=== PATIENT | female | born 1965 | race Caucasian/White ===

== ENCOUNTER → 2017-10-22 08:51 | Outpatient (CLI) | payer MEDICAID, SELFPAY ==
--- NOTE | 2017-10-24 06:41 | PFTCOMP ---
COMPLETE PULMONARY FUNCTION TEST INTERPRETATION Brief HPI: Patient is a 52 year old female, currently under the care of Dr. Sebastian, who presents to [facility] for complete pulmonary function tests secondary to diagnosis of COPD. Respiratory therapist reports good effort and reproducible results. Interpretation: Forced expiration spirometry shows a moderately-severe large airways obstructive ventilatory defect with an FEV1 of 55 % predicted. There is no significant bronchodilator response by ATS criteria. Spirograms are of good quality and plateau slowly, indicating slowly emptying areas of the lungs. The respiratory flow volume loop shows decreased expiratory flow rates at all lung volumes consistent with airway obstruction. Lung volumes by body plethysmography show a normal total lung capacity at 5.01 L, 106 % predicted. All other lung volumes are within normal limits. Lung volume measurements are trending toward air-trapping. Diffusion capacity by carbon monoxide is at the lower limit of normal at 53 % predicted. The airway resistance is normal. No previous pulmonary function tests were available for review. Impression: Irreversible moderately severe large airways obstructive ventilatory defect with a symmetric reduction diffusing capacity consistent with patient's diagnosis of COPD.
--- NOTE | 2017-10-24 06:44 | PFTCOMP_ITS ---
COMPLETE PULMONARY FUNCTION TEST INTERPRETATION Brief HPI: Patient is a 52 year old female, currently under the care of Dr. Sebastian , who presents to [facility] for complete pulmonary function tests secondary to diagnosis of COPD. Respiratory therapist reports good effort and reproducible results. Interpretation: Forced expiration spirometry shows a moderately-severe large airways obstructive ventilatory defect with an FEV1 of 55 % predicted. There is no significant bronchodilator response by ATS criteria. Spirograms are of good quality and plateau slowly, indicating slowly emptying areas of the lungs. The respiratory flow volume loop shows decreased expiratory flow rates at all lung volumes consistent with airway obstruction. Lung volumes by body plethysmography show a normal total lung capacity at 5.01 L , 106 % predicted. All other lung volumes are within normal limits. Lung volume measurements are trending toward air-trapping. Diffusion capacity by carbon monoxide is at the lower limit of normal at 53 % predicted. The airway resistance is normal. No previous pulmonary function tests were available for review. Impression: Irreversible moderately severe large airways obstructive ventilatory defect with a symmetric reduction diffusing capacity consistent with patient's diagnosis of COPD.
== END ==
PROVIDERS: Family Provider Family Medicine; PCP Family Medicine; Visit Provider Internal Medicine Critical Care Medicine
DX: J44.9 Chronic obstructive pulmonary disease, unspecified (principal); R63.4 Abnormal weight loss; F17.200 Nicotine dependence, unspecified, uncomplicated
CPT/HCPCS: 94060; 94726; 94729

== ENCOUNTER 2018-02-04 11:08 | Emergency (ER) | payer MEDICAID, SELFPAY ==
[2018-02-04 11:09] VITALS: BP 152/101; PULSE 92; RESP 20; TEMP 36.8; O2SAT 99; BMI 17.3
--- NOTE | 2018-02-04 11:23 | RAD_ITS ---
STUDY: X-RAY CHEST REASON FOR EXAM: Female, 52 years old. Cough. Sore throat. TECHNIQUE: Single AP portable view of the chest. COMPARISON: Comparison is made with prior study dated October 01, 2017. FINDINGS: EKG electrodes are seen. Hyperinflation. Scattered calcified granulomas. Decreased bronchovascular markings in both lungs suggestive of emphysematous changes. There is no demonstrated pleural abnormality. Normal size heart. Calcification of the mitral valve annulus. Normal mediastinum and augusta. Normal visualized pulmonary arteries. There is atherosclerotic calcification of the aortic arch with tortuosity. Normal visualized thoracic spine. Normal visualized ribs, clavicles, and shoulders. There is no demonstrated abnormality of the visualized soft tissue structures of the upper abdomen. RAD/Chest 1 View (Portable) IMPRESSION: Hyperinflation. No acute abnormality is seen. Electronically Signed: Zaid Justice MD at 12:29 EDT Tel [phone], Service support ,
--- NOTE | 2018-02-04 11:23 | EKG12_ITS ---
Test Reason : SOB Blood Pressure : / mmHG Vent. Rate : 084 BPM Atrial Rate : 084 BPM P-R Int : 182 ms QRS Dur : 070 ms QT Int : 378 ms P-R-T Axes : 081 091 079 degrees QTc Int : 446 ms Normal sinus rhythm Normal ECG Confirmed by CLIFTON MENENDEZ, COCO ([id number]), acquisitions editor QUETA REYNOSO ([id number]) on 02/09/2018 1:36:14 PM Referred By: BRYCE Confirmed By:COCO LAZO MD
[2018-02-04 11:42] VITALS: PULSE 92; RESP 20
[2018-02-04] MEDS: LORazepam 2 MG/ML Syringe 1 MG IV (11:42)
[2018-02-04] MEDS: Ipratropium/Albuterol Sulfate 3 ML AMPUL.NEB INHALATION (11:42)
[2018-02-04] MEDS: 0.9% Normal Saline 1,000 ML 150 ML IV (11:42)
[2018-02-04] MEDS: Aspirin 325 MG Tablet PO (11:42)
[2018-02-04 11:46] LABS: Absolute Lymphocyte Count 2.77 X10^3/ul (0.83-4.51); Absolute Neutrophil Count 4.9 X10^3/uL (2.0-7.7); Basophil# 0.06 X10^3/uL; Basophil% 0.7 % (0-1); Eosinophil# 0.28 X10^3/uL; Eosinophils% 3.1 % (0-5); Hematocrit 37.4 % (37-47); Hemoglobin 11.4 g/dl (12.0-15.0); Lymphocyte # 2.77 X10^3/ul (4.0); Lymphocyte % 30.5 % (19-41); Mean Corp Hgb Conc 30.5 g/gl (32-36); Mean Corpuscular Hgb 21.2 pg (27.0-32.0); Mean Corpuscular Volume 69.4 fL (81-99); Mean Platelet Vol. 9.1 fl (6.2-12.0); Monocyte# 1.06 X10^3/uL; Monocyte% 11.7 % (0-10); Neutrophil # 4.87 X10^3/uL (2.7-7.7); Neutrophil % 53.7 % (47-70); Platelet Count 364 K/mm3 (150-450); RBC Distribution Width CV 20.1 % (11.6-14.6); RBC Distribution Width SD 50.7 fl (35.1-43.9); Red Blood Count 5.39 M/mm3 (4.2-5.4); White Blood Count 9.1 K/mm3 (4.4-11.0)
[2018-02-04 11:49] LABS: Differential Indicated SCAN CRITERIA MET; POSITIVE COUNT NO; POSITIVE DIFFERENTIAL NO; POSITIVE MORPHOLOGY YES
[2018-02-04 11:59] LABS: Anion Gap 10 (5-15); BUN 4 mg/dL (7-18); Calcium,Total 9.5 mg/dL (8.5-10.1); Chloride 96 mmol/L (98-107); EST Glomerular Filtration Rate 137 mL/min (>60); Est Glom Filt Rate - Afr Amer 165 mL/min (>60); Estimated Creatinine Clearance 89.95 ml/min; Glucose 86 mg/dL (74-106); Potassium 4.2 mmol/L (3.5-5.1); Sodium Level 133 mmol/L (136-145)
[2018-02-04 12:04] LABS: D-Dimer Quantitative (DVT/PE) 0.73 FEU/ug/m (0.27-0.49)
--- NOTE | 2018-02-04 12:05 | CT_ITS ---
STUDY: CTA CHEST REASON FOR EXAM: Female, 52 years old. Chest pain. Dyspnea. RADIATION DOSAGE (If Supplied By Facility): CTDIvol = ( 7.28 ) mGy, DLP = ( 151.94 ) mGycm TECHNIQUE: The examination was performed with the intravenous administration of 75 ml of Isovue 370 contrast material. Post-processing of the angiographic images was performed, with multiplanar reformation and 3D reconstruction. Individualized dose optimization techniques were used for this CT. COMPARISON: Comparison is made with prior chest from the left on the earlier today. FINDINGS: Normal enhancement of the main pulmonary artery and right and left pulmonary arteries. Normal enhancement of the bilateral peripheral pulmonary arteries. There is no demonstrated pulmonary embolism. There is atherosclerotic calcification of the aortic arch with tortuosity. There is no demonstrated aortic dissection. Normal heart and pericardium. Normal mediastinum. Normal hilar regions. Normal visualized trachea and bronchi. Hyperinflation. Emphysematous changes in both lungs more prominent in the upper lobes. Normal pleura. Normal chest wall structures. There are degenerative changes of thoracic spine. There is fatty infiltration of the liver. CT/CTA Chest W/WO Contrast IMPRESSION: Hyperinflation. Emphysematous changes. There is no evidence of pulmonary embolism. Electronically Signed: Zaid Justice MD at 13:01 EDT Tel [phone], Service support ,
[2018-02-04 12:07] LABS: Lactic Acid 1.3 mmol/L (0.4-2.0)
--- NOTE | 2018-02-04 12:52 | ED.RN ---
Pt O2 Sat 63% Upon entering room patient sleeping. awakended easily and sat measured at 100% RA. Informed pt how to use bed for repositioning. She verbalized understanding
[2018-02-04 13:25] VITALS: BP 154/88; PULSE 75; RESP 21; O2SAT 98
--- NOTE | 2018-02-04 14:17 | ED.VISSUMM ---
- ER Visit Summary Date of Service: 02/04/18 Chief Complaint: [Not feeling well ] History of Present Illness: The patient is a 52 F [presents the emergency department with complaint of not feeling well for the last 2 weeks. Patient states that she has had some intermittent nausea, vomiting, and diarrhea. Patient states she has been short of breath over last couple days. Patient coughing up some thick phlegm at times. She denies any fever. Last night patient had some sweats and is not sure if she had a fever. Patient describes an achy pressure/discomfort in her chest. Patient tells me she has been losing weight and has not had much of an appetite.] Physical Examination: [HEENT-PERRLA, EOMI. Cranial nerves II through XII grossly intact. TMs clear. Mucous membranes moist. No adenopathy. Cardiovascular-regular rate and rhythm without murmur or ectopy Lungs-mildly diminished throughout. Patient has some faint expiratory wheezes bilaterally. No accessory muscle use or retractions. EKG obtained on arrival shows sinus rhythm with rate of 84 bpm with no acute ST segment changes. CBC with differential was Abdomen-normoactive bowel sounds, soft, nontender, no rebound or rigidity, no peritoneal signs. Extremities-intact ?4, normal range of motion, normal pulses, atraumatic] Test Results: [Significant for a white blood cell count of 9.1, hemoglobin 11, hematocrit 37, platelets 364. Chemistries unremarkable. Troponin was less than 0.015. Lactate was normal at 1.3. D-dimer was 0.73. Chest x-ray showed hyperinflation otherwise nothing acute. CT of the chest showed no evidence of PE or dissection.] Emergency Department Course and Treatment: [Patient was given a DuoNeb aerosol as well as a milligram of Ativan as she is complaining of feeling anxious. Patient started on doxycycline and prednisone.] Patient felt much improved after treatment and no longer complains of any chest discomfort. I do not feel her chest pain is cardiac as it is very atypical and suspect likely related to her COPD. Treatment Plan: [Prednisone, doxycycline will be started and patient advised to follow-up with her primary care physician within next 3-5 days.] Disposition: [Discharged to home in stable condition. Patient advised to return if increasing shortness of breath or condition should worsen in any way.] Impression: [COPD exacerbation] This note was generated with Dragon dictation software. It may contain incorrect words, spelling, and punctuation that were not noted in review of the chart prior to signing ED Disposition - Plan for ED Patient: Chief Complaint: General Illness Referrals: Bernard Galan III, MD [Primary Care Provider] -
--- NOTE | 2018-02-04 14:22 | ED.DEP ---
ED Disposition - Plan for ED Patient: Chief Complaint: General Illness Instructions: ED COPD Flare Prescriptions: Doxycycline Monohydrate 100 mg PO BID #20 cap Prednisone [Deltasone] 20 mg PO BID #10 tab Referrals: Bernard Galan III, MD [Primary Care Provider] - 3-5 Days
[2018-02-04] MEDS: predniSONE 20 MG Tablet 40 MG PO (14:36)
[2018-02-04] MEDS: Doxycycline 100 MG CAPSULE PO (14:36)
[2018-02-04 14:45] VITALS: BP 138/85; PULSE 74; RESP 19; O2SAT 95
--- NOTE | 2018-02-04 14:46 | ED.RN ---
REVIEWED D/C INSTRUCTIONS, FOLLOW UP CARE, PRESCRIPTIONS, AND S/S THAT WOULD WARRANT A RETURN TO THE ED WITH PT. PT VERBALIZED AN UNDERSTANDING AND DENIES FURTHER QUESTIONS FOR THIS RN. PT SKIN P/W/D, RESP EVEN AND UNLABORED, PT A&O X 3, NO DISTRESS NOTED. PT AMBULATED OUT OF ED, GAIT STEADY.
== END 2018-02-04 14:47 | disposition home or self-care (01) ==
PROVIDERS: Emergency Provider Emergency Medicine; Family Provider Family Medicine; PCP Family Medicine
DX: J44.1 Chronic obstructive pulmonary disease with (acute) exacerbation (principal); Z72.0 Tobacco use
CPT/HCPCS: 36415; 71045; 71275; 80048; 83605; 84484; 85025; 85379; 87040; 87804; 93005; 94640; 99285; J7030; Q9967; A4216

== ENCOUNTER 2018-02-27 21:58 | Inpatient (IN) | payer MEDICAID, SELFPAY ==
[2018-02-27 22:00] VITALS: BP 127/106; PULSE 131; RESP 24; TEMP 36.5; O2SAT 87; BMI 16.9
--- NOTE | 2018-02-27 22:36 | EKG12_ITS ---
Test Reason : SOB Blood Pressure : / mmHG Vent. Rate : 101 BPM Atrial Rate : 101 BPM P-R Int : 170 ms QRS Dur : 070 ms QT Int : 336 ms P-R-T Axes : 067 088 070 degrees QTc Int : 435 ms Sinus tachycardia Low voltage QRS (limb leads) Confirmed by OUSMANE MENENDEZ, GRUPO ([id number]), magazine editor QUETA REYNOSO ([id number]) on 03/10/2018 6:47:58 PM Referred By: ESPINOZA Confirmed By:GRUPO ROMEO MD
[2018-02-27 22:49] VITALS: PULSE 118; RESP 20
[2018-02-27] MEDS: Albuterol 2.5 MG/3 ML VIAL.NEB. INHALATION ×2 (22:49→23:09)
[2018-02-27] MEDS: Ipratropium/Albuterol Sulfate 3 ML AMPUL.NEB INHALATION (22:49)
--- NOTE | 2018-02-27 22:55 | RAD_ITS ---
STUDY: X-RAY CHEST REASON FOR EXAM: Female, 52 years old. Shortness of breath. TECHNIQUE: Single AP portable view of the chest. COMPARISON: 02/04/2018. FINDINGS: There is hyperinflation of the lungs consistent with chronic obstructive lung disease (COPD). There is no demonstrated pleural abnormality. Normal size heart. Normal mediastinum and augusta. Normal visualized pulmonary arteries. There is mild atherosclerotic calcification of the aortic arch with tortuosity. Normal visualized thoracic spine. Normal visualized ribs, clavicles, and shoulders. There is no demonstrated abnormality of the visualized soft tissue structures of the upper abdomen. RAD/Chest 1 View (Portable) IMPRESSION: COPD changes. No focal infiltrate is seen. Electronically Signed: Jason Rubio MD at 0:59 EDT Tel , Service support ,
[2018-02-27 23:10] VITALS: PULSE 117; RESP 20
[2018-02-27] MEDS: MethylPREDNISolone 125 MG/2 ML Vial IV (23:12)
[2018-02-27] MEDS: Morphine 2 MG/ML Syringe IV (23:12)
[2018-02-27 23:18] LABS: Absolute Lymphocyte Count 1.43 X10^3/ul (0.83-4.51); Absolute Neutrophil Count 14.1 X10^3/uL (2.0-7.7); Basophil# 0.07 X10^3/uL; Basophil% 0.4 % (0-1); Differential Indicated SCAN CRITERIA MET; Eosinophil# 0.09 X10^3/uL; Eosinophils% 0.5 % (0-5); Hematocrit 35.4 % (37-47); Hemoglobin 11.3 g/dl (12.0-15.0); Lymphocyte # 1.43 X10^3/ul (4.0); Lymphocyte % 8.1 % (19-41); Mean Corp Hgb Conc 31.9 g/gl (32-36); Mean Corpuscular Hgb 22.7 pg (27.0-32.0); Mean Corpuscular Volume 71.2 fL (81-99); Mean Platelet Vol. 10.3 fl (6.2-12.0); Monocyte# 1.92 X10^3/uL; Monocyte% 10.8 % (0-10); Neutrophil # 14.13 X10^3/uL (2.7-7.7); Neutrophil % 79.6 % (47-70); POSITIVE COUNT NO; POSITIVE DIFFERENTIAL YES; POSITIVE MORPHOLOGY YES; Platelet Count 307 K/mm3 (150-450); RBC Distribution Width SD 53.6 fl (35.1-43.9); Red Blood Count 4.97 M/mm3 (4.2-5.4); White Blood Count 17.7 K/mm3 (4.4-11.0)
--- NOTE | 2018-02-27 23:31 | ED.VISSUMM ---
- ER Visit Summary Date of Service: 02/27/18 Chief Complaint: [] Shortness of breath History of Present Illness: The patient is a 52 F [] complaining of shortness of breath getting earlier today. Patient has a long-standing history of COPD with over [id number]-[id number] history. Prescription. Reports cough productive of yellow sputum. Denies fevers. Reports he was recently admitted for COPD exacerbation. Denies chest pain. No other complaints. Physical Examination: [] Afebrile. Tachycardic. Reported 87% pulse ox on room air. 52-year-old female appears older than stated age in no acute distress. Cardia vascular exam is tachycardic with regular rhythm. Lungs are diminished globally with no obvious wheezing. Abdomen is soft and nontender. There is no lower extremity edema. Test Results: [] Chest x-ray: COPD without obvious infiltrate. EKG reveals normal sinus rhythm with a rate of 101. No ischemia or ectopic changes. Unchanged from previous EKG. Labs: Data white blood cell count 17.7. Sodium 128. Troponin indeterminate 0.066. Emergency Department Course and Treatment: [] Patient received intravenous site Medrol, albuterol and Atrovent aerosols. Patient received 2 mg intravenous of morphine for analgesia. On serial exam she had slight improvement however when she ambulated her pulse ox dropped down to the mid 80s. She still is breathing in the mid 20s and likely needs admission and further aerosol treatment. Case was discussed with hospitalist to admit for observation. Treatment Plan: [] Admit for COPD exacerbation. Disposition: [] Admit, stable Impression: [] COPD exacerbation Hypoxia This note was generated with [employer] dictation software. It may contain incorrect words, spelling, and punctuation that were not noted in review of the chart prior to signing ED Disposition - Plan for ED Patient: Chief Complaint: General Illness Referrals: Bernard Galan III, MD [Primary Care Provider] -
[2018-02-27 23:36] LABS: Anion Gap 11 (5-15); BUN 9 mg/dL (7-18); BUN/Creat Ratio 11.5 RATIO (10-20); Calcium,Total 9.2 mg/dL (8.5-10.1); Chloride 92 mmol/L (98-107); Creatinine, Serum 0.79 mg/dL (0.55-1.02); EST Glomerular Filtration Rate 81 mL/min (>60); Est Glom Filt Rate - Afr Amer 98 mL/min (>60); Estimated Creatinine Clearance 55.65 ml/min; Glucose 185 mg/dL (74-106); Potassium 4.1 mmol/L (3.5-5.1); Sodium Level 128 mmol/L (136-145)
--- NOTE | 2018-02-27 23:37 | ED.DCSUM_ITS ---
- ER Visit Summary Date of Service: 02/27/18 Chief Complaint: [] Shortness of breath History of Present Illness: The patient is a 52 F [] complaining of shortness of breath getting earlier today. Patient has a long-standing history of COPD with over 42-[id number]-[id number] history. Prescription. Reports cough productive of yellow sputum. Denies fevers. Reports he was recently admitted for COPD exacerbation. Denies chest pain. No other complaints. Physical Examination: [] Afebrile. Tachycardic. Reported 87% pulse ox on room air. 52-year-old female appears older than stated age in no acute distress. Cardia vascular exam is tachycardic with regular rhythm. Lungs are diminished globally with no obvious wheezing. Abdomen is soft and nontender. There is no lower extremity edema. Test Results: [] Chest x-ray: COPD without obvious infiltrate. EKG reveals normal sinus rhythm with a rate of 101. No ischemia or ectopic changes. Unchanged from previous EKG. Labs: Data white blood cell count 17.7. Sodium 128. Troponin indeterminate 0.066. Emergency Department Course and Treatment: [] Patient received intravenous site Medrol, albuterol and Atrovent aerosols. Patient received 2 mg intravenous of morphine for analgesia. On serial exam she had slight improvement however when she ambulated her pulse ox dropped down to the mid 80s. She still is breathing in the mid 20s and likely needs admission and further aerosol treatment. Case was discussed with hospitalist to admit for observation. Treatment Plan: [] Admit for COPD exacerbation. Disposition: [] Admit, stable Impression: [] COPD exacerbation Hypoxia This note was generated with [employer] dictation software. It may contain incorrect words, spelling, and punctuation that were not noted in review of the chart prior to signing ED Disposition - Plan for ED Patient: Chief Complaint: General Illness Referrals: Bernard Galan III, MD [Primary Care Provider] -
[2018-02-27 23:43] LABS: Anisocytosis 2+; Differential Comment SCANNED; Hypochromasia RARE
[2018-02-28] VITALS (19 sets, daily range): BP systolic 109–133; BP diastolic 61–117; PULSE 83–140; RESP 14–20; TEMP 36.4–37; O2SAT 92–96; BMI 16.9
--- NOTE | 2018-02-28 01:52 | NURSING ---
WHEN PT GOT BACK FROM THE RESTROOM SHE WAS SHORT OF BREATH AND PULSE OX DROPPED INTO THE 80'S. WITHOUT O2 AND GETTING BACK FROM THE RESTROOM HER PULSE OX WAS 83% WITH NO OXYGEN, ONCE 2 LITERS OF O2 WAS APPLIED PT WENT BACK UP TO 90%.
--- NOTE | 2018-02-28 02:09 | DT_ITS ---
This patient was seen during an EMR downtime March 01, 2018 - March 08, 2018. This patient may have a combination of paper and electronic documentation or all paper documentation. All documentation is viewable within the e-chart portion of [facility] for each patient visit.
--- NOTE | 2018-02-28 02:23 | PCM.HP.STD ---
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 (5) Alcoholic hepatitis Status: Chronic (6) HTN (hypertension) Status: Chronic (7) Anemia Status: Chronic (8) COPD (chronic obstructive pulmonary disease) Status: Chronic (9) Alcohol abuse Status: Chronic (10) History of pancreatitis Status: Chronic (11) Tobacco use disorder Status: Chronic (12) GERD (gastroesophageal reflux disease) Status: Chronic (13) Chronic obstructive lung disease Status: Chronic (14) Benign hypertension Status: Chronic History of Present Illness Date of Admission: 02/28/18 Chief Complaint: COPD exacerbation The patient is a 52 year old female w/ h/o EtOH abuse, COPD, HTN and tobacco abuse admitted for COPD exacerbation. She has a h/o 30 pack year and continues to smoke. She has worsening productive cough x 2-3 days. Nothing appeared to make the cough better or worse. Coughing is associated with SOB. SOB is constant and severe. She came to the ED for further workup. Past Medical History Past Medical History (Chronic Problems): Chronic Problems (Last Updated 11/19/17 @ 13:51 by Kassandra Angeles) Chronic pancreatitis (Chronic) HPV (human papilloma virus) infection (Chronic) Alcoholic hepatitis (Chronic) HTN (hypertension) (Chronic) Anemia (Chronic) COPD (chronic obstructive pulmonary disease) (Chronic) Unintentional weight loss (Chronic) Tobacco abuse (Chronic) Alcohol abuse (Chronic) History of pancreatitis (Chronic) Tobacco use disorder (Chronic) GERD (gastroesophageal reflux disease) (Chronic) Chronic obstructive lung disease (Chronic) Benign hypertension (Chronic) Medical History: Medical History (Last Updated 11/19/17 @ 13:51 by Kassandra Angeles) Chronic pancreatitis (Chronic) K86.1 HPV (human papilloma virus) infection (Chronic) B97.7 Alcoholic hepatitis (Chronic) K70.10 HTN (hypertension) (Chronic) I10 Anemia (Chronic) D64.9 COPD (chronic obstructive pulmonary disease) (Chronic) J44.9 Unintentional weight loss (Chronic) R63.4 Tobacco abuse (Chronic) Z72.0 Alcohol abuse (Chronic) F10.10 History of pancreatitis (Chronic) Z87.19 Tobacco use disorder (Chronic) F17.200 GERD (gastroesophageal reflux disease) (Chronic) K21.9 Chronic obstructive lung disease (Chronic) J44.9 Benign hypertension (Chronic) I10 Allergies Penicillins Allergy (Verified 02/27/18 22:02) Hives Home Medications: Ambulatory Orders Medication Instructions Recorded Albuterol Inhaler [Ventolin Hfa] 1 - 2 puff INHALATION Q4H PRN PRN 07/28/13 Cholecalciferol (Vitamin D3) 2,000 unit PO DAILY 02/23/14 [Vitamin D3] Lisinopril [Zestril] 20 mg PO DAILY 10/29/15 Omeprazole [Prilosec] 20 mg PO DAILY 12/17/15 Vibrin 40 mg PO DAILY 12/17/15 Lorazepam [Ativan] 0.5 mg PO TID PRN 05/12/16 Ibuprofen [Motrin] 400 mg PO Q6H PRN PRN 07/27/17 Trazodone HCl 50 mg PO QHS 07/27/17 Amlodipine [Norvasc] 5 mg PO DAILY 02/04/18 Albuterol Aerosols [Ventolin 2.5 mg INHALATION Q6H PRN PRN 02/27/18 Aerosols] Ferrous Sulfate 325 mg PO DAILY@0800 02/27/18 Loperamide [Imodium] 2 mg PO Q6H PRN PRN 02/27/18 Ondansetron [Zofran Odt] 4 mg PO DAILY 02/27/18 Surgical History: Surgical History (Last Updated 11/19/17 @ 13:51 by Kassandra Angeles) History of colonoscopy (Resolved) Z98.890 History of appendectomy (Resolved) Z98.890, Z90.49 Surgical History: - - 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 Denies: Shortness of breath at rest Gastrointestinal: Denies: Abdominal Pain, Nausea, Vomiting Genitourinary: Denies: Dysuria Musculoskeletal: Denies: Joint Pain, Joint Tenderness Skin: Denies: Rash, Wounds Neurological: Denies: Numbness, Tingling, Focal weakness Psychiatric: Denies: Anxiety, Depression, Homicidal Ideations, Suicidal Ideations Hematologic/ Lymphatic: Denies: Easy Bruising, Easy Bleeding VTE Information - Inpt Only VTE Present on Admission: No VTE Mechan Device Prophylaxis: SCD's VTE Pharm Prophylaxis ordered?: Yes Patient Problems: Active and Suspected Problems (Last Updated 11/19/17 @ 13:51 by Kassandra Angeles) COPD exacerbation (Acute) - Physical Exam General: Alert, Oriented x3, Cooperative HEENT: Atraumatic, PERRLA, EOMI, Normocephalic Neck: Supple, No JVD, Negative Carotid Bruits Lungs: Diminished, Short of Breath, Wheezes Cardiovascular: Regular rate, No murmurs Abdomen: Bowel Sounds Present, Soft, Non Tender Extremities: No edema, Capillary Refill Less than 3 Seconds Skin: No rashes, No breakdown Musculoskeletal: No Tenderness to Palpation of Joints or Extremities Neurological: Cranial nerves II-XII grossly intact Psych/Mental Status: Normal Affect, Appropriate Vital Signs Temp Pulse Resp BP Pulse Ox 97.7 F L 119 H 19 H 133/117 H 92 02/27/18 22:00 02/28/18 00:25 02/28/18 00:25 02/28/18 00:25 02/28/18 00:25 Oxygen Flow Rate (L/min) 2 Oxygen Delivery Method Nasal Cannula Weight: 43.3 kg Body Mass Index (BMI) 16.9 Laboratory Tests Past 24 Hrs 02/27/18 02/27/18 23:00 23:00 WBC 17.7 H RBC 4.97 Hgb 11.3 L Hct 35.4 L MCV 71.2 L MCH 22.7 L MCHC 31.9 L RDW 22.0 H RDW Differential 53.6 H Plt Count 307 MPV 10.3 Immature Gran % (Auto) 0.600 Neut % (Auto) 79.6 H Lymph % (Auto) 8.1 L Placer % (Auto) 10.8 H Eos % (Auto) 0.5 Baso % (Auto) 0.4 Absolute Neuts (auto) 14.1 H Absolute Lymphs (auto) 1.43 Total Counted Not Reportable Differential Comment SCANNED Diff Path Review May foll Hypochromasia RARE Anisocytosis 2+ Sodium 128 L Potassium 4.1 Chloride 92 L Carbon Dioxide 25.0 Anion Gap 11 BUN 9 Creatinine 0.79 Estim Creat Clear Calc 55.65 Est GFR (MDRD) Af Amer 98 Est GFR (MDRD) Non-Af 81 BUN/Creatinine Ratio 11.5 Glucose 185 H Calcium 9.2 Troponin I 0.066 H Assessment/Plan All Active Problems (Last Updated 11/19/17 @ 13:51 by Kassandra Angeles) COPD exacerbation (Acute) History of colonoscopy (Resolved) History of appendectomy (Resolved) 52 year old female w/ h/o EtOH abuse, COPD, HTN and tobacco abuse admitted for COPD exacerbation. 1) COPD exacerbation: Probably secondary to tobacco abuse. Will start bronchodilators, steroid and azithromycin and ceftriaxone. C/w oxygen. Cultures pending. 2) Hyponatremia: Probably secondary to EtOH and poor hydration. IVF hydration. Monitor. 3) Acute hypoxic respiratory failure: C/w oxygen. Monitor. 4) HTN: C/w meds. Monitor.
[2018-02-28] MEDS: 0.9% NaCl Peripheral Flush Adult/Peds IV ×2 (03:25→13:31)
[2018-02-28] MEDS: 0.9% Normal Saline 1,000 ML 75 ML IV ×2 (03:26→16:01)
[2018-02-28] MEDS: Ceftriaxone 1 GM/50 ML BAG IV (03:26)
[2018-02-28] MEDS: Ibuprofen 400 MG Tablet PO ×3 (04:04→21:39)
[2018-02-28 04:38] LABS: Absolute Lymphocyte Count 0.62 X10^3/ul (0.83-4.51); Absolute Neutrophil Count 13.7 X10^3/uL (2.0-7.7); Basophil# 0.01 X10^3/uL; Basophil% 0.1 % (0-1); Hematocrit 33.9 % (37-47); Hemoglobin 10.5 g/dl (12.0-15.0); Lymphocyte # 0.62 X10^3/ul (4.0); Lymphocyte % 4.1 % (19-41); Mean Corpuscular Hgb 21.9 pg (27.0-32.0); Mean Corpuscular Volume 70.6 fL (81-99); Mean Platelet Vol. 9.9 fl (6.2-12.0); Monocyte# 0.54 X10^3/uL; Monocyte% 3.6 % (0-10); Neutrophil # 13.74 X10^3/uL (2.7-7.7); Neutrophil % 91.9 % (47-70); Platelet Count 291 K/mm3 (150-450); RBC Distribution Width CV 21.1 % (11.6-14.6); RBC Distribution Width SD 52.3 fl (35.1-43.9)
[2018-02-28 04:59] LABS: Differential Indicated SCAN CRITERIA MET; POSITIVE COUNT NO; POSITIVE DIFFERENTIAL NO; POSITIVE MORPHOLOGY YES
[2018-02-28 05:00] LABS: D-Dimer Quantitative (DVT/PE) 0.72 FEU/ug/m (0.27-0.49)
--- NOTE | 2018-02-28 05:08 | CT_ITS ---
STUDY: CTA CHEST REASON FOR EXAM: Female, 52 years old. Elevated d-dimer. RADIATION DOSAGE (If Supplied By Facility): CTDIvol = ( 3.83 ) mGy, DLP = ( 156.31 ) mGycm TECHNIQUE: The examination was performed with the intravenous administration of 75 ml of Isovue 370 contrast material. Post-processing of the angiographic images was performed, with multiplanar reformation and 3D reconstruction. Individualized dose optimization techniques were used for this CT. COMPARISON: 02/04/2018 FINDINGS: Normal enhancement of the main pulmonary artery and right and left pulmonary arteries. Normal enhancement of the bilateral peripheral pulmonary arteries. There is no demonstrated pulmonary embolism. There is atherosclerotic calcification of the aortic arch. There is no demonstrated aortic dissection. Normal heart and pericardium. There is no pericardial or pleural effusion. Normal mediastinum. Again demonstrated small bilateral enlarged hilar lymph nodes. Normal visualized trachea and bronchi. The lungs are hyper expanded, with flattening of the hemidiaphragms. There are emphysematous changes in the bilateral lungs. There is mild central bronchiectasis. New nodular interstitial infiltrates are seen in somewhat tree-in-bud configuration anteriorly/laterally in the lingula, right middle lobe and peripherally/laterally in the right lower lobe, consistent with endobronchial infection. There is also a platelike atelectasis seen in the lingula. Normal pleura. There is no pleural or pericardial effusion present. There is endplate spondylosis with bridging marginal osteophytes at T9-T10 level. There are benign bilateral axillary lymph nodes. There is diffuse fatty hepatic infiltration. CT/CTA Chest W/WO Contrast IMPRESSION: 1. Normal CTA chest examination, without a demonstrated pulmonary embolism or arterial dissection. 2. Pulmonary emphysema. Central bronchiectasis. 3. New nodular interstitial infiltrates with somewhat tree-in-bud configuration are seen in the lingula, right middle lobe and right lower lobe, consistent with endobronchial infection. 4. Hepatic steatosis. Electronically Signed: Amber Hamilton MD at 6:51 EDT Tel , Service support ,
[2018-02-28 05:18] LABS: ALB/GLOB Ratio 0.5 RATIO (0.9-2.4); AST(SGOT) 24 U/L (15-37); Alanine Aminotransfer ALT/SGPT 26 U/L (13-56); Albumin, Serum 2.6 g/dL (3.2-5.0); Alkaline Phosphatase 138 U/L (45-117); Anion Gap 10 (5-15); BUN 7 mg/dL (7-18); BUN/Creat Ratio 17.3 RATIO (10-20); Calcium,Total 9.2 mg/dL (8.5-10.1); Chloride 94 mmol/L (98-107); EST Glomerular Filtration Rate 174 mL/min (>60); Est Glom Filt Rate - Afr Amer 211 mL/min (>60); Estimated Creatinine Clearance 110.16 ml/min; Globulin 4.9 g/dL (2.2-4.2); Glucose 149 mg/dL (74-106); Potassium 3.8 mmol/L (3.5-5.1); Protein, Total 7.5 g/dL (6.4-8.2); Sodium Level 131 mmol/L (136-145)
[2018-02-28 05:25] LABS: Anisocytosis 2+; Differential Comment SCANNED; Hypochromasia 2+; Microcytosis 2+; Target Cells 3+
[2018-02-28] MEDS: Heparin Injection (Vial) 5,000 UNIT/ML VIAL 5000 UNIT SC ×3 (05:34→21:40)
[2018-02-28 05:38] LABS: BNP,B-Type NATRIURETIC PEPTIDE 110.2 pg/mL (0-100)
[2018-02-28 07:09] LABS: Amphetamine Urine VISTA NEGATIVE (<1000 ng/mL); Barbiturate Urine VISTA NEGATIVE (< 200 ng/mL); Benzodiazepine Urine VISTA NEGATIVE (< 200 ng/mL); Cocaine Urine VISTA NEGATIVE (< 300 ng/mL); Ecstacy Urine VISTA NEGATIVE (< 500 ng/mL); Methadone Urine VISTA NEGATIVE (< 300 ng/mL); PCP Urine VISTA NEGATIVE (< 25 ng/mL); THC Urine VISTA NEGATIVE (< 50 ng/mL); Vista UDS pH Range 6
[2018-02-28] MEDS: Ipratropium/Albuterol Sulfate 3 ML AMPUL.NEB INHALATION ×4 (07:12→18:58)
[2018-02-28] MEDS: Lisinopril 20 MG Tablet PO (08:56)
[2018-02-28] MEDS: Pantoprazole Sodium 20 MG Tablet PO (08:56)
[2018-02-28] MEDS: Ondansetron ODT 4 MG Tablet PO (08:56)
[2018-02-28] MEDS: VILAZODONE HYDROCHLORIDE 40 MG TABLET PO (08:56)
[2018-02-28] MEDS: amLODIPine 5 MG Tablet PO (08:56)
[2018-02-28] MEDS: Ferrous Sulfate 325 MG Tablet PO (08:56)
[2018-02-28] MEDS: LORazepam 0.5 MG Tablet PO (11:11)
--- NOTE | 2018-02-28 13:19 | PN_ITS ---
Patient Problems: Active and Suspected Problems (Last Updated 11/19/17 @ 13:51 by Kassandra Angeles) COPD exacerbation (Acute) Subjective: Patient was seen and examined. Admitted yesterday with acute COPD exacerbation. Complains of feeling very unwell. Feels very anxious. Takes at home Ativan 0.5 mg p.o. 3 times daily. Denies any fever but complains of night sweats. CTA of the chest showed nodular interstitial infiltrates, more in the lingula right middle and lower lobe, consistent with endobronchial infection. Objective: Physical Exam General: Alert, Oriented x3, Cooperative, not pale, not jaundiced. HEENT: Atraumatic, PERRLA, EOMI, Normocephalic Neck: Supple, No JVD, Negative Carotid Bruits Lungs: Diminished, Short of Breath, Wheezes Cardiovascular: Regular rate, No murmurs Abdomen: Bowel Sounds Present, Soft, Non Tender Extremities: No edema, Capillary Refill Less than 3 Seconds Skin: No rashes, No breakdown Musculoskeletal: No Tenderness to Palpation of Joints or Extremities Neurological: Cranial nerves II-XII grossly intact Psych/Mental Status: Normal Affect, Appropriate Vitals/I&O's: Vital Signs Temp Pulse Resp BP Pulse Ox 98.6 F 95 16 110/61 94 02/28/18 08:45 02/28/18 11:22 02/28/18 11:22 02/28/18 08:45 02/28/18 08:45 Oxygen Flow Rate (L/min) 2 Oxygen Delivery Method Nasal Cannula Weight: 43.4 kg Body Mass Index (BMI) 16.9 Intake and Output for Last 24 Hours 02/26/18 02/27/18 02/28/18 23:59 23:59 23:59 Intake Total 993 / 993 Balance 993 / 993 Microbiology Past 72 Hours 02/28/18 03:15 Mucosa - Nasopharyngeal Influenza Types A,B Direct FA (AGNIESZKA) - Final Laboratory Results 02/28/18 03:35: D-Dimer Quant (PE/DVT) 0.72 H* 02/28/18 03:35: B-Natriuretic Peptide 110.2 H 02/28/18 03:35: WBC 15.0 H, RBC 4.80, Hgb 10.5 L, Hct 33.9 L, MCV 70.6 L, MCH 21.9 L, MCHC 31.0 L, RDW 21.1 H, RDW Differential 52.3 H, Plt Count 291, MPV 9.9 , Immature Gran % (Auto) 0.300, Neut % (Auto) 91.9 H, Lymph % (Auto) 4.1 L, Dolores % (Auto) 3.6, Eos % (Auto) 0.0, Baso % (Auto) 0.1, Absolute Neuts (auto) 13.7 H, Absolute Lymphs (auto) 0.62 L, Total Counted Not Reportable, Differential Comment SCANNED, Hypochromasia 2+, Anisocytosis 2+, Microcytosis 2+ , Target Cells 3+ 02/28/18 03:35: Sodium 131 L, Potassium 3.8, Chloride 94 L, Carbon Dioxide 27.0 , Anion Gap 10, BUN 7, Creatinine 0.40 L, Estim Creat Clear Calc 110.16, Est GFR (MDRD) Af Amer 211, Est GFR (MDRD) Non-Af 174, BUN/Creatinine Ratio 17.3, Glucose 149 H, Calcium 9.2, Total Bilirubin 0.30, AST 24, ALT 26, Alkaline Phosphatase 138 H, Total Protein 7.5, Albumin 2.6 L, Globulin 4.9 H, Albumin/ Globulin Ratio 0.5 L 02/28/18 03:35: Troponin I 0.051 H 02/28/18 06:17: Troponin I 0.073 H 02/28/18 06:45: Urine Opiates Screen POSITIVE H, Urine Methadone Screen NEGATIVE , Ur Barbiturates Screen NEGATIVE, Ur Phencyclidine Scrn NEGATIVE, Ur Amphetamines Screen NEGATIVE, U Methamphetamin-MDMA NEGATIVE, U Benzodiazepines Scrn NEGATIVE, Urine Cocaine Screen NEGATIVE, U Cannabinoids Screen NEGATIVE, Ur Drug Screen Comment 02/28/18 08:55: Troponin I 0.046 H Current Medications Albuterol/Ipratropium (Duoneb) 3 ml INHALATION Q4H.RT [facility] Last Admin: 02/28/18 11:22 Dose: 3 ml Amlodipine Besylate (Norvasc) 5 mg PO DAILY [facility] Last Admin: 02/28/18 08:56 Dose: 5 mg Cholecalciferol (Vitamin D) 2,000 unit PO DAILY [facility] Last Admin: 02/28/18 08:56 Dose: 2,000 unit Ferrous Sulfate (Ferrous Sulfate) 325 mg PO DAILY@0800 [facility] Last Admin: 02/28/18 08:56 Dose: 325 mg Heparin Sodium (Porcine) (Heparin Na) 5,000 unit SC Q8 [facility] Last Admin: 02/28/18 05:34 Dose: 5,000 units Sodium Chloride () 1,000 mls @ 75 mls/hr IV .[id number] [facility] Last Admin: 02/28/18 03:26 Dose: 75 mls/hr Azithromycin 500 mg/ Dextrose 255 mls @ 250 mls/hr IV Q24 [facility] Stop: 03/02/18 11:02 Last Admin: 02/28/18 03:59 Dose: 250 mls/hr Ibuprofen (Motrin) 400 mg PO Q6H PRN PRN PRN Reason: PAIN Last Admin: 02/28/18 10:35 Dose: 400 mg Lisinopril (Zestril) 20 mg PO DAILY [facility] Last Admin: 02/28/18 08:56 Dose: 20 mg Loperamide HCl (Imodium) 2 mg PO Q6H PRN PRN PRN Reason: Diarrhea Lorazepam (Ativan) 0.5 mg PO TID PRN PRN Reason: ANXIETY Last Admin: 02/28/18 11:11 Dose: 0.5 mg Melatonin (Melatonin) 3 mg PO QHS [facility] Methylprednisolone (Solu-Medrol) 40 mg IV Q8 [facility] Stop: 03/01/18 06:01 Last Admin: 02/28/18 05:34 Dose: 40 mg Nutritional Formula (Lactose Free) (Ensure Enlive) 120 ml PO 4X/DAY [facility] Last Admin: 02/28/18 08:56 Dose: 120 ml Ondansetron HCl (Zofran Odt) 4 mg PO DAILY [facility] Last Admin: 02/28/18 08:56 Dose: 4 mg Pantoprazole Sodium (Protonix) 20 mg PO DAILY [facility] Last Admin: 02/28/18 08:56 Dose: 20 mg Prednisone () 40 mg PO DAILY@0800 [facility] Sodium Chloride () 5 - 30 ml IV UD PRN PRN Reason: SALINE FLUSH Last Admin: 02/28/18 03:25 Dose: 10 ml Vilazodone HCl (Viibryd) 40 mg PO DAILY [facility] Last Admin: 02/28/18 08:56 Dose: 40 mg Medical Necessity - Tobacco Use Smoking Status: Current every day smoker Assessment/Plan All Active Problems (Last Updated 11/19/17 @ 13:51 by Kassandra Angeels) COPD exacerbation (Acute) History of colonoscopy (Resolved) History of appendectomy (Resolved) 52-year-old female with past medical history of alcohol use disorder, COPD, hypertension, nicotine use disorder admitted with shortness of breath and productive cough. 1. Acute COPD exacerbation, no signs of overt pneumonia on CT of the chest, rather endobronchial infection, patient is still wheezy, there was a screen is negative, respiratory panel is pending, cultures are pending. Plan: Continue with oxygen per protocol, breathing treatments, azithromycin, DC ceftriaxone, for SPO2 more than 92% 2. Elevated troponins likely secondary to demand ischemia, no history of coronary artery disease, will get a 2D echo, patient would need a stress test prior to discharge once COPD is improved 3. Hypertension, controlled, continue home amlodipine and lisinopril. 4. Anxiety/depression, continue home medication 5. Polysubstance use - alcohol, nicotine, advised to quit 6. DVT ppx - Heparin SC Code Visit Inpatient E&M: 60196 Subs Hosp L2
--- NOTE | 2018-02-28 14:22 | ECHOD_ITS ---
Reason For Study: SOB Procedure This was a 2D Doppler, Color Flow transthoracic echocardiogram. Exam performed portable in patient room. Left Ventricle Normal size and thickness. The estimated ejection fraction is 65 %. Normal diastology for age. No regional wall motion abnormalities noted. Right Ventricle Normal size and thickness. Normal systolic function. Atria Normal left atrium. Normal right atrium. Normal atrial septum. Mitral Valve Mild diffuse mitral valve thickening. Mild mitral annular calcification extending into the posterior leaflet. Tricuspid Valve Normal tricuspid valve. Trivial tricuspid valve insufficiency. Right ventricular systolic pressure estimated to be 38 mmHg. Mild pulmonary hypertension. Aortic Valve Trisinus/trileaflet aortic valve. Mild diffuse aortic valve thickening. Pulmonic Valve Normal pulmonic valve. Trivial pulmonic valve insufficiency. Great Vessels Normal aortic root. Normal arch. Normal inferior vena cava. Inferior vena cava collapse with respiration. Pericardium/Pleural No pericardial effusion. Medication Performed a rapid injection of agitated mix of 9 cc saline and 1cc air to assess for atrial septal defect. MMode/2D Measurements & Calculations LVIDd: 4.0 cm IVSd: 1.0 cm Ao root diam: 2.9 cm LVIDs: 2.5 cm LVPWd: 1.1 cm LA dimension: 3.7 cm RVDd: 2.2 cm FS: 38.0 % LAV(MOD-bp): 43.1 ml EDV(MOD-sp4): 51.9 ml SV(MOD-sp4): 32.4 ml LAV(MOD-bp) Indexed: 30.6 ml/m2 ESV(MOD-sp4): 19.5 ml LAV(MOD-sp2): 46.4 ml EF(MOD-sp4): 62.4 % LAV(MOD-sp4): 36.9 ml LA A4 area: 13.9 cm2 RA A4 area: 10.7 cm2 Doppler Measurements & Calculations MV E max jalen: 135.6 cm/sec Lat Peak E' Jalen: 13.3 cm/sec Med Peak E' Jalen: 8.9 cm/sec MV A max jalen: 103.9 cm/sec E/E' lat: 10.2 E/E' med: 15.2 MV E/A: 1.3 Ao V2 max: 145.2 cm/sec LV V1 max: 120.9 cm/sec PA V2 max: 100.8 cm/sec Ao max P.4 mmHg LV V1 max P.8 mmHg TR max jalen: 279.3 cm/sec TR max P.2 mmHg Interpretation Summary The estimated ejection fraction is 65 %. Normal diastology for age. Trivial tricuspid valve insufficiency. Right ventricular systolic pressure estimated to be 38 mmHg. Mild pulmonary hypertension. There is no comparison study available. Ordering Physician: Ciarra Arreola Referring Physician: SANTANA Galan M.D. Performed By: Arelis Quinonez RDCS
--- NOTE | 2018-02-28 14:58 | NURSING ---
Spoke with care center procurement representative, confirmed patient is prescribed Ativan by physician at the care center.
[2018-02-28] MEDS: MELATONIN 3 MG TABLET PO (21:40)
[2018-02-28] MEDS: Loperamide 2 MG Capsule PO (21:40)
[2018-03-01 03:00] VITALS: PULSE 116
[2018-03-01 03:16] VITALS: PULSE 92; RESP 20
[2018-03-01] MEDS: Ipratropium/Albuterol Sulfate 3 ML AMPUL.NEB INHALATION (03:16)
[2018-03-01 03:30] VITALS: BP 137/79; PULSE 88; RESP 18; TEMP 36.7; O2SAT 96
[2018-03-04 16:06] LABS: White Blood Count 14.9 K/mm3 (4.4-11.0)
[2018-03-04 16:07] LABS: Absolute Lymphocyte Count 1.14 X10^3/ul (0.83-4.51); Absolute Neutrophil Count 12.1 X10^3/uL (2.0-7.7); Basophil# 0.01 X10^3/uL; Basophil% 0.1 % (0-1); Differential Indicated SCAN CRITERIA MET; Hematocrit 29.2 % (37-47); Hemoglobin 9.2 g/dl (12.0-15.0); Hypochromasia 2+; Lymphocyte # 1.14 X10^3/ul (4.0); Lymphocyte % 7.6 % (19-41); Mean Corp Hgb Conc 31.3 g/gl (32-36); Mean Corpuscular Hgb 22.8 pg (27.0-32.0); Mean Corpuscular Volume 72.8 fL (81-99); Mean Platelet Vol. 11.6 fl (6.2-12.0); Monocyte# 1.64 X10^3/uL; Neutrophil # 12.14 X10^3/uL (2.7-7.7); Neutrophil % 81.3 % (47-70); POSITIVE COUNT NO; POSITIVE DIFFERENTIAL NO; POSITIVE MORPHOLOGY YES; Platelet Count 296 K/mm3 (150-450); RBC Distribution Width CV 22.5 % (11.6-14.6); RBC Distribution Width SD 55.4 fl (35.1-43.9); Red Blood Count 4.04 M/mm3 (4.2-5.4); Target Cells 1+
[2018-03-06 08:16] LABS: Magnesium 1.8 mg/dL (1.6-2.6)
[2018-03-06 09:49] LABS: BUN 9 mg/dL (7-18); BUN/Creat Ratio 18.8 RATIO (10-20); Calcium,Total 9.8 mg/dL (8.5-10.1); Creatinine, Serum 0.48 mg/dL (0.55-1.02); EST Glomerular Filtration Rate 143 mL/min (>60); Est Glom Filt Rate - Afr Amer 173 mL/min (>60); Glucose 134 mg/dL (74-106)
[2018-03-06 09:50] LABS: Anion Gap 12 (5-15); Chloride 92 mmol/L (98-107); Potassium 3.4 mmol/L (3.5-5.1); Sodium Level 133 mmol/L (136-145)
[2018-03-06 13:44] LABS: BUN 10 mg/dL (7-18); BUN/Creat Ratio 23.3 RATIO (10-20); Calcium,Total 9.4 mg/dL (8.5-10.1); Creatinine, Serum 0.43 mg/dL (0.55-1.02); EST Glomerular Filtration Rate 163 mL/min (>60); Est Glom Filt Rate - Afr Amer 198 mL/min (>60); Estimated Creatinine Clearance 102.47 ml/min; Glucose 87 mg/dL (74-106); Potassium 3.4 mmol/L (3.5-5.1); Sodium Level 137 mmol/L (136-145)
[2018-03-06 13:45] LABS: Anion Gap 9 (5-15); Chloride 97 mmol/L (98-107)
[2018-03-08 17:33] LABS: Hematocrit 35.4 % (37-47); Hemoglobin 11.1 g/dl (12.0-15.0); Mean Corp Hgb Conc 31.4 g/gl (32-36); Mean Corpuscular Hgb 22.6 pg (27.0-32.0); Mean Corpuscular Volume 72.1 fL (81-99); Mean Platelet Vol. 10.6 fl (6.2-12.0); Platelet Count 392 K/mm3 (150-450); RBC Distribution Width CV 22.5 % (11.6-14.6); RBC Distribution Width SD 55.8 fl (35.1-43.9); Red Blood Count 4.91 M/mm3 (4.2-5.4); Scan Indicated on CBC? Y/N NO; White Blood Count 13.8 K/mm3 (4.4-11.0)
[2018-03-10 11:02] LABS: Pathologist Review Reviewed
[2018-03-10 14:58] LABS: Anion Gap 9 (5-15); BUN 6 mg/dL (7-18); BUN/Creat Ratio 19.4 RATIO (10-20); Calcium,Total 8.9 mg/dL (8.5-10.1); Chloride 101 mmol/L (98-107); Creatinine, Serum 0.31 mg/dL (0.55-1.02); EST Glomerular Filtration Rate 237 mL/min (>60); Est Glom Filt Rate - Afr Amer 287 mL/min (>60); Estimated Creatinine Clearance 142.14 ml/min; Glucose 142 mg/dL (74-106); Potassium 3.7 mmol/L (3.5-5.1); Sodium Level 139 mmol/L (136-145)
[2018-03-10 18:57] LABS: Differential Indicated MANUAL DIFF; Hematocrit 38.7 % (37-47); Hemoglobin 11.9 g/dl (12.0-15.0); Mean Corp Hgb Conc 30.7 g/gl (32-36); Mean Corpuscular Hgb 22.5 pg (27.0-32.0); Mean Corpuscular Volume 73.2 fL (81-99); Mean Platelet Vol. 9.6 fl (6.2-12.0); POSITIVE COUNT YES; POSITIVE DIFFERENTIAL YES; POSITIVE MORPHOLOGY YES; Platelet Count 399 K/mm3 (150-450); RBC Distribution Width CV 21.8 % (11.6-14.6); RBC Distribution Width SD 56.7 fl (35.1-43.9); Red Blood Count 5.29 M/mm3 (4.2-5.4); White Blood Count 17.6 K/mm3 (4.4-11.0)
[2018-03-10 18:58] LABS: Absolute Lymphocyte Count 2.63 X10^3/ul (0.83-4.51); Absolute Neutrophil Count 12.8 X10^3/uL (2.0-7.7); Anisocytosis 1+; Hypochromasia 1+; Lymphocyte 15 % (19-41); Metamyelocyte 2 % (0-1); Monocyte 10 % (0-10); Neutrophil-Segmented 73 % (47-70)
[2018-03-10 18:59] LABS: Platelet Estimate ADEQUATE (ADEQ)
[2018-03-10 21:43] LABS: Total Cells Counted 100 (MANUAL DIFF)
[2018-03-11 09:50] LABS: Pathologist Review Reviewed
== END 2018-03-04 14:08 | disposition home or self-care (01) | DRG 87 ==
LOC: ED 23:31 → PCU 02-28 02:31
PROVIDERS: Physician Assistant; Admitting Provider Internal Medicine; Emergency Provider Emergency Medicine; Family Provider Family Medicine; PCP Family Medicine; Visit Provider Internal Medicine
DX: J96.01 Acute respiratory failure with hypoxia (principal); J18.9 Pneumonia, unspecified organism; E87.1 Hypo-osmolality and hyponatremia; F10.10 Alcohol abuse, uncomplicated; J44.1 Chronic obstructive pulmonary disease with (acute) exacerbation; J44.0 Chronic obstructive pulmonary disease with (acute) lower respiratory infection; F17.210 Nicotine dependence, cigarettes, uncomplicated; R63.4 Abnormal weight loss; Z68.1 Body mass index [BMI] 19.9 or less, adult; I10 Essential (primary) hypertension; K21.9 Gastro-esophageal reflux disease without esophagitis
CPT/HCPCS: 36415; 71045; 71275; 80048; 80053; 80307; 83735; 83880; 84484; 85025; 85027; 85379; 87040; 87070; 87077; 87186; 87205; 87804; 93005; 93306; 94640; 94667; 94668; 97802; 99285; J7030; J7040; Q9967; A4216

== ENCOUNTER → 2018-03-25 15:42 | Outpatient (CLI) | payer MEDICAID, SELFPAY | PROVIDERS: Family Provider Family Medicine; PCP Family Medicine; Visit Provider Otolaryngology Otolaryngology/Facial Plastic Surgery | DX: J32.9 Chronic sinusitis, unspecified (principal) | CPT/HCPCS: 87070; 87077; 87186; 87205 ==

== ENCOUNTER → 2018-05-14 10:52 | Outpatient (CLI) | payer MEDICAID, SELFPAY ==
[2018-05-14 11:10] VITALS: PULSE 105; PULSE 109; PULSE 113; PULSE 116; PULSE 117; O2SAT 93; O2SAT 95; O2SAT 96
--- NOTE | 2018-05-14 11:55 | PCM.PSN.6M ---
PSN 6 Minute Walk Test - 6 Minute Walk Test 6 Minute Walk Test: 6 Minute Walk Test PSN:6-Minute Walk Test Start: 05/14/18 11:10 Freq: Status: Active Protocol: [id number] Document 05/14/18 11:10 HG (Rec: 05/14/18 11:12 HG [id number]) 6 Minute Walk Test Date Performed 05/14/18 Time Performed 11:00 Height 5 ft 3 in Weight: 99 lb Weight in Pounds 99.[address]: Gonzalo Sebastian Assistive device used: None Pre-test Oxygen Delivery Method Room Air Pulse Ox (%) 95 Pulse Rate (60-100 beats/min) 105 H Dyspnea Nallely Scale (0-10) 0 Exertion Nallely Scale (6-20) 6 1st minute Oxygen Delivery Method Room Air Pulse Ox (%) 95 Pulse Rate (60-100 beats/min) 116 H 2nd minute Oxygen Delivery Method Room Air Pulse Ox (%) 93 Pulse Rate (60-100 beats/min) 116 H 3rd minute Oxygen Delivery Method Room Air Pulse Ox (%) 95 Pulse Rate (60-100 beats/min) 117 H 4th minute Oxygen Delivery Method Room Air Pulse Ox (%) 95 Pulse Rate (60-100 beats/min) 113 H 5th minute Oxygen Delivery Method Room Air Pulse Ox (%) 96 Pulse Rate (60-100 beats/min) 116 H 6th minute Oxygen Delivery Method Room Air Pulse Ox (%) 96 Pulse Rate (60-100 beats/min) 116 H Post-test Oxygen Delivery Method Room Air Pulse Ox (%) 96 Pulse Rate (60-100 beats/min) 109 H Dyspnea Nallely Scale (0-10) 0 Exertion Nallely Scale (6-20) 6 Full Laps Walked 16 Partial Lap, Number of Tiles Walked 0 Total Distance Walked (ft) 944 - Interpretation Interpretation: The patient ambulated 944 feet over the course of 6 minutes beginning on room air without assistive devices or breaks. Pretesting oxygen saturation was noted to be 95% on room air. With ambulation, the juajnose oxygen saturation was 93%. The patient did develop tachycardia with exertion. There was no significant exertional oxygen desaturation. These findings may be consistent with a cardiac limitation to exercise tolerance. - Recommendations Recommendations: There is no indication for the use of supplemental oxygen at this time.
== END ==
PROVIDERS: Family Provider Family Medicine; PCP Family Medicine; Visit Provider Internal Medicine Critical Care Medicine
DX: J44.9 Chronic obstructive pulmonary disease, unspecified (principal)
CPT/HCPCS: 94618

== ENCOUNTER 2018-10-28 11:02 | Emergency (ER) | payer MEDICAID, SELFPAY ==
[2018-08-27 11:14] VITALS: BMI 17.2
[2018-10-28 11:06] VITALS: BP 142/77; PULSE 108; RESP 17; TEMP 36.7; O2SAT 92; BMI 17.0
[2018-10-28] MEDS: Ondansetron 4 MG/2 ML Vial IV (11:40)
[2018-10-28] MEDS: 0.9% Normal Saline 1,000 ML 1000 ML IV (11:40)
[2018-10-28 11:43] LABS: Absolute Lymphocyte Count 2.56 X10^3/ul (0.83-4.51); Absolute Neutrophil Count 6.6 X10^3/uL (2.0-7.7); Basophil# 0.09 X10^3/uL; Basophil% 0.9 % (0-1); Eosinophil# 0.13 X10^3/uL; Eosinophils% 1.3 % (0-5); Hematocrit 44.9 % (37-47); Hemoglobin 16.2 g/dl (12.0-15.0); Lymphocyte # 2.56 X10^3/ul (4.0); Mean Corp Hgb Conc 36.1 g/gl (32-36); Mean Corpuscular Hgb 30.9 pg (27.0-32.0); Mean Corpuscular Volume 85.7 fL (81-99); Monocyte# 0.86 X10^3/uL; Monocyte% 8.4 % (0-10); Neutrophil # 6.58 X10^3/uL (2.7-7.7); Neutrophil % 64.1 % (47-70); POSITIVE COUNT NO; POSITIVE DIFFERENTIAL NO; POSITIVE MORPHOLOGY NO; Platelet Count 280 K/mm3 (150-450); RBC Distribution Width CV 13.3 % (11.6-14.6); RBC Distribution Width SD 41.5 fl (35.1-43.9); Red Blood Count 5.24 M/mm3 (4.2-5.4); White Blood Count 10.3 K/mm3 (4.4-11.0)
[2018-10-28 11:54] LABS: AST(SGOT) 106 U/L (15-37); Alanine Aminotransfer ALT/SGPT 113 U/L (13-56); Albumin, Serum 3.9 g/dL (3.2-5.0); Alkaline Phosphatase 145 U/L (45-117); Anion Gap 14 (5-15); BUN 1 mg/dL (7-18); BUN/Creat Ratio 2.5 RATIO (10-20); Calcium,Total 9.1 mg/dL (8.5-10.1); Chloride 90 mmol/L (98-107); EST Glomerular Filtration Rate 174 mL/min (>60); Est Glom Filt Rate - Afr Amer 210 mL/min (>60); Estimated Creatinine Clearance 109.63 ml/min; Glucose 80 mg/dL (74-106); Lipase 182 U/L (73-393); Potassium 3.8 mmol/L (3.5-5.1); Protein, Total 7.9 g/dL (6.4-8.2); Sodium Level 129 mmol/L (136-145)
--- NOTE | 2018-10-28 13:11 | ED.DCSUM_ITS ---
- ER Visit Summary Date of Service: 10/28/18 Chief Complaint: Not feeling well History of Present Illness: The patient is a 53 F who has not been feeling well for 2 weeks. The patient reports body aches, pain all over, headache, nausea, vomiting, and diarrhea. Nothing seemed to bring this on or make it worse. Nothing has made it better. The patient has a history of COPD, hypertension, hyponatremia, hepatitis, and pancreatitis. She drinks 3 large cans of beer per day. Denies fevers. Denies abdominal pain. Denies any urinary symptoms. Denies back pain. Physical Examination: Afebrile and vital signs unremarkable except for heart rate of 108. The patient appears nontoxic and in no acute distress. HEENT exam unremarkable. Heart regular rhythm. Lungs clear. Abdomen soft and nontender. Skin appears slightly dry but otherwise unremarkable. Test Results: Hemoglobin 16.2, sodium 129, chloride 90, BUN 1, creatinine 0.40. Alkaline phosphatase 145, ALT 113, AST 106. Lipase normal. Emergency Department Course and Treatment: Patient received Zofran and fluid resuscitation. Workup showed hyponatremia and elevated liver enzymes. She has had a liver enzymes in the past secondary to alcoholic hepatitis. She is aware of this. She also had hyponatremia in the past secondary to what was thought to be dehydration and alcohol use. Patient was feeling better on reevaluation. She had a p.o. challenge and passed. She would like to try to go home. She was advised to stay hydrated. Phenergan and/or Zofran as needed for nausea. Imodium for diarrhea. Patient was advised that hyponatremia can be very severe and life-threatening and she will follow-up with her doctor to recheck her sodium. If she is worse or has any new or different issues, she may require hospitalization. She should return right away. I spoke with Dr. Galan regarding the patient's presentation, findings, and care. He will help coordinate rechecking her sodium. Treatment Plan: As above Disposition: Discharge Impression: 1. Nausea, vomiting, diarrhea 2. Dehydration 3. Hyponatremia This note was generated with [employer] software. It may contain incorrect words, spelling, and punctuation that were not noted in review of the chart prior to signing ED Disposition - Plan for ED Patient: Disposition: Home or Assisted Living Instructions: ED Vomiting Diarrhea Nonspecific Ad Prescriptions: Loperamide [Imodium] 2 mg PO Q4H PRN PRN #20 cap PRN Reason: Diarrhea proMETHazine tablet [Phenergan] 25 mg PO Q6H PRN PRN #10 tab PRN Reason: Nausea Referrals: Bernard Galan III, MD [Primary Care Provider] -
[2018-10-28 13:52] VITALS: RESP 18
== END 2018-10-28 13:53 | disposition home or self-care (01) ==
LOC: ED 12:15
PROVIDERS: Emergency Provider Emergency Medicine; Family Provider Family Medicine; PCP Family Medicine
DX: R11.2 Nausea with vomiting, unspecified (principal); R19.7 Diarrhea, unspecified; E86.0 Dehydration; E87.1 Hypo-osmolality and hyponatremia; J44.9 Chronic obstructive pulmonary disease, unspecified; I10 Essential (primary) hypertension; Z72.0 Tobacco use; F10.20 Alcohol dependence, uncomplicated; Y90.9 Presence of alcohol in blood, level not specified
CPT/HCPCS: 80053; 83690; 85025; 96361; 96374; 99283; J7030; A4216; J2405

== ENCOUNTER 2018-11-26 09:36 | Emergency (ER) | payer MEDICAID, SELFPAY ==
[2018-11-26 09:36] VITALS: BP 142/92; PULSE 112; RESP 15; TEMP 36.6; O2SAT 96; BMI 16.7
[2018-11-26 10:32] VITALS: BP 137/90; PULSE 97; RESP 15; O2SAT 91
[2018-11-26 10:48] LABS: Absolute Lymphocyte Count 2.11 X10^3/ul (0.83-4.51); Absolute Neutrophil Count 4.7 X10^3/uL (2.0-7.7); Basophil# 0.06 X10^3/uL; Basophil% 0.8 % (0-1); Eosinophil# 0.15 X10^3/uL; Eosinophils% 1.9 % (0-5); Hematocrit 45.1 % (37-47); Hemoglobin 16.2 g/dl (12.0-15.0); Lymphocyte # 2.11 X10^3/ul (4.0); Lymphocyte % 26.8 % (19-41); Mean Corp Hgb Conc 35.9 g/gl (32-36); Mean Corpuscular Hgb 30.6 pg (27.0-32.0); Mean Corpuscular Volume 85.1 fL (81-99); Mean Platelet Vol. 9.7 fl (6.2-12.0); Monocyte# 0.81 X10^3/uL; Monocyte% 10.3 % (0-10); Neutrophil % 59.7 % (47-70); Platelet Count 256 K/mm3 (150-450); RBC Distribution Width SD 43.4 fl (35.1-43.9); White Blood Count 7.9 K/mm3 (4.4-11.0)
[2018-11-26 10:49] LABS: POSITIVE COUNT NO; POSITIVE DIFFERENTIAL NO; POSITIVE MORPHOLOGY NO
[2018-11-26 10:53] LABS: AST(SGOT) 55 U/L (15-37); Alanine Aminotransfer ALT/SGPT 60 U/L (13-56); Albumin, Serum 3.6 g/dL (3.2-5.0); Alkaline Phosphatase 140 U/L (45-117); Anion Gap 8 (5-15); BUN 1 mg/dL (7-18); BUN/Creat Ratio 2.2 RATIO (10-20); Bilirubin, Direct 0.18 mg/dL (0.00-0.30); Calcium,Total 8.7 mg/dL (8.5-10.1); Chloride 91 mmol/L (98-107); Creatinine, Serum 0.44 mg/dL (0.55-1.02); EST Glomerular Filtration Rate 155 mL/min (>60); Est Glom Filt Rate - Afr Amer 188 mL/min (>60); Estimated Creatinine Clearance 98.07 ml/min; Glucose 104 mg/dL (74-106); Lipase 219 U/L (73-393); Magnesium 1.6 mg/dL (1.6-2.6); Potassium 3.7 mmol/L (3.5-5.1); Protein, Total 7.6 g/dL (6.4-8.2); Sodium Level 123 mmol/L (136-145)
--- NOTE | 2018-11-26 11:20 | RAD_ITS ---
STUDY: X-RAY CHEST REASON FOR EXAM: Female, 53 years old. Cough. Shortness of breath. TECHNIQUE: PA and lateral views of the chest. COMPARISON: Comparison is made with prior study dated February 27, 2018. FINDINGS: Hyperinflation. Scattered calcified granulomas. There is no demonstrated pleural abnormality. Calcification of the mitral valve annulus. Normal mediastinum and augusta. Normal visualized pulmonary arteries. Normal visualized aortic arch and descending thoracic aorta. There is demineralization of the osseous structures. Normal visualized ribs, clavicles, and shoulders. There is no demonstrated abnormality of the visualized soft tissue structures of the upper abdomen. RAD/Chest PA and Lateral IMPRESSION: Hyperinflation. Electronically Signed: Zaid Justice, at 11:42 EST , Service support ,
--- NOTE | 2018-11-26 12:00 | ED.VISSUMM ---
- ER Visit Summary Date of Service: 11/26/18 Chief Complaint: Vomiting and diarrhea History of Present Illness: The patient is a 53 F who states that she has had vomiting and diarrhea for months. They comes for a few days then goes. She states she was in the emergency department in September. She followed up with a primary care physician. She states that she is an alcoholic and her primary care physician wanted her to go to [facility]. However 3 weeks ago she states the weather was not that good so she did not go. In the following 3 weeks she states that she just has not gone for no particular reason. She tells me that she would like at some point to do rehab and that it is a good thought. She states that she has lost 20 pounds over the past several weeks because she does not feel much like eating. Yesterday she drank mostly beer. She had some soup. Physical Examination: Afebrile vital signs are stable the triage heart rate of 112 is actually 91 on my exam Gen: Well-nourished well-developed Head: Normocephalic atraumatic Eyes: Perrl EOMI ENT: TMs clear no rhinorrhea moist mucous membranes Neck: Supple no lymphadenopathy no JVD nontender CVS: Regular rate rhythm no murmurs normal S1-S2 Respiratory: No distress clear to auscultation bilaterally chest nontender Abdomen: Soft nontender nondistended normal bowel sounds no masses Back: Nontender Extremity: Nontender no edema Skin: Normal color no rash Neuro: alert orientated ?3 CN II-XII intact normal strength sensation reflexes gait cerebellar Psych: Normal affect normal mood Test Results: Basic labs showed a sodium of 123 slightly elevated transaminases. Emergency Department Course and Treatment: Patient has been in a sinus rhythm on the monitor. Patient's sodium is most likely low due to beer potomania. Patient was advised not to expect solid stools of her only consumption his alcohol and soup. Tells me that she is going to go to [facility] today. Family is with her and is in agreement with that plan. Impression: 1. Alcoholism 2. Hyponatremia This note was generated with [employer] software. It may contain incorrect words, spelling, and punctuation that were not noted in review of the chart prior to signing ED Disposition - Plan for ED Patient: Disposition: Home or Assisted Living Instructions: Alcoholism: Getting Help, ED Hyponatremia Referrals: Bernard Galan III, MD [Primary Care Provider] - As soon as possible [facility] [STAFF PHYSICIAN] -
[2018-11-26 12:02] VITALS: BP 139/90; PULSE 131; RESP 16; O2SAT 90
== END 2018-11-26 12:11 | disposition home or self-care (01) ==
PROVIDERS: Emergency Provider Emergency Medicine; Family Provider Family Medicine; PCP Family Medicine
DX: F10.20 Alcohol dependence, uncomplicated (principal); Y90.9 Presence of alcohol in blood, level not specified; E87.1 Hypo-osmolality and hyponatremia; Z72.0 Tobacco use
CPT/HCPCS: 71046; 80048; 80076; 83690; 83735; 85025; 99284; A4216

== ENCOUNTER 2018-12-29 12:49 | Inpatient (IN) | payer MEDICAID, SELFPAY ==
[2018-12-29] VITALS (8 sets, daily range): BP systolic 99–138; BP diastolic 59–86; PULSE 73–109; RESP 14–17; TEMP 36.1–37.1; O2SAT 92–100; BMI 16.5; BMI 15.7
[2018-12-29] MEDS: Ondansetron 4 MG/2 ML Vial IV (13:52)
[2018-12-29] MEDS: 0.9% Normal Saline 1,000 ML 1000 ML IV (13:52)
[2018-12-29 14:20] LABS: ALB/GLOB Ratio 0.9 RATIO (0.9-2.4); AST(SGOT) 125 U/L (15-37); Alanine Aminotransfer ALT/SGPT 157 U/L (13-56); Albumin, Serum 3.5 g/dL (3.2-5.0); Alkaline Phosphatase 148 U/L (45-117); Anion Gap 16 (5-15); BUN 6 mg/dL (7-18); BUN/Creat Ratio 20.3 RATIO (10-20); Chloride 68 mmol/L (98-107); EST Glomerular Filtration Rate 250 mL/min (>60); Est Glom Filt Rate - Afr Amer 302 mL/min (>60); Globulin 3.7 g/dL (2.2-4.2); Glucose 72 mg/dL (74-106); Lipase 844 U/L (73-393); Potassium 2.4 mmol/L (3.5-5.1); Protein, Total 7.2 g/dL (6.4-8.2); Sodium Level 109 mmol/L (136-145)
[2018-12-29 14:26] LABS: Absolute Lymphocyte Count 1.62 X10^3/ul (0.83-4.51); Absolute Neutrophil Count 8.8 X10^3/uL (2.0-7.7); Basophil# 0.03 X10^3/uL; Basophil% 0.2 % (0-1); Differential Indicated SCAN CRITERIA MET; Eosinophil# 0.13 X10^3/uL; Eosinophils% 1.1 % (0-5); Hemoglobin 14.4 g/dl (12.0-15.0); Lymphocyte # 1.62 X10^3/ul (4.0); Lymphocyte % 13.5 % (19-41); Mean Corp Hgb Conc 37.9 g/gl (32-36); Mean Corpuscular Hgb 29.1 pg (27.0-32.0); Mean Corpuscular Volume 76.9 fL (81-99); Mean Platelet Vol. 9.9 fl (6.2-12.0); Monocyte# 1.42 X10^3/uL; Monocyte% 11.8 % (0-10); Neutrophil # 8.77 X10^3/uL (2.7-7.7); Neutrophil % 72.8 % (47-70); POSITIVE COUNT YES; POSITIVE DIFFERENTIAL NO; POSITIVE MORPHOLOGY NO; Platelet Count 134 K/mm3 (150-450); RBC Distribution Width CV 12.4 % (11.6-14.6); RBC Distribution Width SD 33.8 fl (35.1-43.9); Red Blood Count 4.94 M/mm3 (4.2-5.4)
--- NOTE | 2018-12-29 14:49 | EKG12_ITS ---
Test Reason : LABS Blood Pressure : / mmHG Vent. Rate : 091 BPM Atrial Rate : 091 BPM P-R Int : 260 ms QRS Dur : 076 ms QT Int : 390 ms P-R-T Axes : 084 085 080 degrees QTc Int : 479 ms Sinus rhythm with 1st degree A-V block Biatrial enlargement Septal infarct , age undetermined Abnormal ECG Confirmed by CLIFTON MENENDEZ, COCO ([id number]), photo editor CATHERINE PIERCE ([id number]) on 12/31/2018 11:04:04 AM Referred By: Mahamed Fatima Confirmed By:COCO LAZO MD
--- NOTE | 2018-12-29 15:03 | ED.VISSUMM ---
- ER Visit Summary Date of Service: 12/29/18 Chief Complaint: Nausea, vomiting, and diarrhea History of Present Illness: The patient is a 53 F with nausea, vomiting, and diarrhea for the past 4 days. It coincides with her stopping alcohol use. She has a history of alcoholism as well as alcoholic hepatitis and pancreatitis. Her emesis is nonbloody. Her diarrhea is loose, non-liquid, but she denies bleeding. She does have some mild abdominal cramping. No fevers. Physical Examination: Afebrile and vital signs unremarkable except for heart rate of 109. The patient appears nontoxic and in no acute distress. Heart regular. Lungs clear bilaterally. Abdomen soft and nontender. Extremities nontender with normal skin. Test Results: EKG pending. White count 12.0 and platelets 134. Sodium 109, potassium 2.4, chloride 68. Alkaline phosphatase 148, ALT 157, AST 125, lipase 844. Analysis pending. Magnesium pending. Emergency Department Course and Treatment: Patient treated with fluids and Zofran while awaiting results. Lab work showed hyponatremia and hypokalemia. EKG and magnesium were added. Results are pending. She was treated with potassium chloride IV. Patient had no further pain or vomiting. Her liver enzymes are elevated but fairly stable. Lipase is 844, less than 3 times the upper limit of normal. Her abdomen is soft and she is not requiring pain meds. I have low suspicion for pancreatitis at this point as her lipase is always slightly elevated. On reevaluation, patient is stable. Patient was discussed with the hospitalist for admission. Treatment Plan: As above Disposition: Admission Impression: 1. Hyponatremia 2. Hypokalemia 3. Nausea, vomiting, diarrhea 4. History of pancreatitis 5. History of alcoholism This note was generated with [employer] software. It may contain incorrect words, spelling, and punctuation that were not noted in review of the chart prior to signing ED Disposition - Plan for ED Patient: Referrals: Bernard Galan III, MD [Primary Care Provider] -
[2018-12-29 15:06] LABS: Magnesium 1.3 mg/dL (1.6-2.6)
--- NOTE | 2018-12-29 15:11 | NURSING ---
MED SURG MORELIAERI HYPONATREMIA, HYPOKALEMIA
[2018-12-29 15:30] LABS: Anisocytosis RARE; Microcytosis RARE; Platelet Estimate SLT DEC (ADEQ)
[2018-12-29] MEDS: Potassium Chloride 10mEq/100mL 10 MEQ/100 ML IV.SOLN. 100 MEQ IV BOLUS ×4 (15:41→19:22)
--- NOTE | 2018-12-29 16:10 | PCM.HP.STD ---
Problem List (1) Hyponatremia Status: Acute (2) Hypokalemia Status: Acute (3) Pancreatitis Status: Acute Qualifiers: Chronicity: acute Pancreatitis type: alcohol induced Acute pancreatitis complication: unspecified Qualified Code(s): K85.20 - Alcohol induced acute pancreatitis without necrosis or infection History of Present Illness Date of Admission: 12/29/18 Chief Complaint: N/V The patient is a 53 year old F is with 3-day history of intractable nausea and vomiting. Patient drinks 3 tall boys daily but last drink was 3 days ago. After stopping drinking she is been having intractable nausea and vomiting. Patient is confused so much the history is obtained to the emergency room physician as well as the patient's mother is at bedside. In the emergency room, patient was noted to have sodium 109, potassium 2.4 and a lipase of 844. Patient did receive IV fluids as well as potassium replacement. [] Past Medical History Past Medical History (Chronic Problems): Chronic Problems (Last Reviewed 08/27/18 @ 18:54 by Ani Eduardo NP-C) Chronic pancreatitis (Chronic) HPV (human papilloma virus) infection (Chronic) Alcoholic hepatitis (Chronic) HTN (hypertension) (Chronic) Anemia (Chronic) COPD (chronic obstructive pulmonary disease) (Chronic) Unintentional weight loss (Chronic) Tobacco abuse (Chronic) Alcohol abuse (Chronic) History of pancreatitis (Chronic) Tobacco use disorder (Chronic) GERD (gastroesophageal reflux disease) (Chronic) Chronic obstructive lung disease (Chronic) Benign hypertension (Chronic) Medical History: Medical History (Last Reviewed 12/29/18 @ 16:11 by Mahamed Fatima DO) Chronic pancreatitis (Chronic) K86.1 HPV (human papilloma virus) infection (Chronic) B97.7 Alcoholic hepatitis (Chronic) K70.10 HTN (hypertension) (Chronic) I10 Anemia (Chronic) D64.9 COPD (chronic obstructive pulmonary disease) (Chronic) J44.9 Unintentional weight loss (Chronic) R63.4 Tobacco abuse (Chronic) Z72.0 Alcohol abuse (Chronic) F10.10 History of pancreatitis (Chronic) Z87.19 Tobacco use disorder (Chronic) F17.200 GERD (gastroesophageal reflux disease) (Chronic) K21.9 Chronic obstructive lung disease (Chronic) J44.9 Benign hypertension (Chronic) I10 Allergies Penicillins Allergy (Verified 11/26/18 09:36) Hives Home Medications: Ambulatory Orders Medication Instructions Recorded Albuterol Inhaler [Ventolin Hfa] 1 - 2 puff INHALATION Q4H PRN PRN 07/28/13 Lisinopril [Zestril] 20 mg PO DAILY 10/29/15 Omeprazole [Prilosec] 20 mg PO DAILY 12/17/15 Lorazepam [Ativan] 0.5 mg PO TID PRN 05/12/16 Amlodipine [Norvasc] 5 mg PO DAILY 02/04/18 Albuterol Aerosols [Ventolin 2.5 mg INHALATION Q6H PRN PRN 02/27/18 Aerosols] Ferrous Sulfate 325 mg PO DAILY@0800 02/27/18 Vilazodone Hydrochloride [Viibryd] 40 mg PO DAILY 10/28/18 Cholecalciferol (Vitamin D3) 2,000 unit PO DAILY 12/29/18 [D3-2000] Ibuprofen 400 mg PO PRN PRN 12/29/18 Surgical History: Surgical History (Last Reviewed 12/29/18 @ 16:11 by Mahamed Fatima DO) History of colonoscopy (Resolved) Z98.890 History of appendectomy (Resolved) Z98.890, Z90.49 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 VTE Information - Inpt Only VTE Present on Admission: No VTE Mechan Device Prophylaxis: None VTE Pharm Prophylaxis ordered?: Yes Patient Problems: Active and Suspected Problems (Last Reviewed 08/27/18 @ 18:54 by Ani Eduardo NP-C) Hyponatremia (Acute) Hypokalemia (Acute) Pancreatitis (Acute) - Physical Exam General: - - Oriented to self and place. Year is 2020. HEENT: Atraumatic, PERRLA, EOMI, Normocephalic, - - No scleral icterus Oral: Moist Mucosa, No Gingival or Mucosal Lesions/ Ulcerations Neck: No Nodes, Thyroid Normal Size and Texture Lungs: Clear to auscultation, Normal air movement, No rhonchi, No wheeze Cardiovascular: Regular rate, Regular Rhythm, Normal S1, Normal S2, No murmurs Abdomen: Bowel Sounds Present, Soft, Non Tender, Non-Distended Extremities: No edema, No Calf Tenderness Skin: No rashes, No breakdown Musculoskeletal: No Tenderness to Palpation of Joints or Extremities, No Muscle Wasting Neurological: Neuro grossly intact, Sensory exam intact to light touch and pain, Coordination normal Psych/Mental Status: Appropriate, Anxious Vital Signs Temp Pulse Resp BP Pulse Ox 36.4 C L 94 17 130/75 H 98 12/29/18 15:03 12/29/18 15:03 12/29/18 15:03 12/29/18 15:03 12/29/18 15:03 Oxygen Delivery Method Room Air Weight: 42.184 kg Body Mass Index (BMI) 16.5 Laboratory Tests Past 24 Hrs 12/29/18 12/29/18 12/29/18 13:40 13:40 13:40 WBC 12.0 H RBC 4.94 Hgb 14.4 Hct 38.0 MCV 76.9 L MCH 29.1 MCHC 37.9 H RDW 12.4 RDW Differential 33.8 L Plt Count 134 L MPV 9.9 Immature Gran % (Auto) 0.600 Neut % (Auto) 72.8 H Lymph % (Auto) 13.5 L [place] % (Auto) 11.8 H Eos % (Auto) 1.1 Baso % (Auto) 0.2 Absolute Neuts (auto) 8.8 H Absolute Lymphs (auto) 1.62 Total Counted Not Reportable Platelet Estimate SLT DEC Anisocytosis RARE Microcytosis RARE Sodium 109 L* Potassium 2.4 L* Chloride 68 L* Carbon Dioxide 25.0 Anion Gap 16 H BUN 6 L Creatinine 0.30 L Estim Creat Clear Calc 141.10 Est GFR (MDRD) Af Amer 302 Est GFR (MDRD) Non-Af 250 BUN/Creatinine Ratio 20.3 H Glucose 72 L Calcium 9.0 Magnesium 1.3 L Total Bilirubin 1.10 H AST 125 H ALT 157 H Alkaline Phosphatase 148 H Total Protein 7.2 Albumin 3.5 Globulin 3.7 Albumin/Globulin Ratio 0.9 Lipase 844 H Assessment/Plan All Active Problems (Last Reviewed 08/27/18 @ 18:54 by Ani Eduardo, MARY-C) COPD exacerbation (Acute) Hyponatremia (Acute) Hypokalemia (Acute) Pancreatitis (Acute) Pneumonia (Acute) Stage 2 moderate COPD by GOLD classification (Acute) History of colonoscopy (Resolved) History of appendectomy (Resolved) 1. Hyponatremia Suspect related with be reported joseph but also due to her potential nausea and vomiting possible some hypovolemic component Replace Monitor closely No indication for hypertonic saline at this point time 2. Hypokalemia Likely due to malnutrition but also the intractable nausea and vomiting Replace Check magnesium Reassess 3. Pancreatitis Likely alcohol induced Not having much pain at this time Will just monitor but if it gets worse consider ultrasound or CAT scan Clear diet IV fluids 4. Alcohol abuse Last drink was 3 days ago Thiamine and folate Patient on benzodiazepines as outpatient we will continue with that as needed but patient does start manifesting signs of severe alcohol withdrawal would possibly need to do a Librium or lorazepam taper. 5. DVT prophylaxis with Lovenox Code Visit Inpatient E&M: 99475 Init Hosp L3
--- NOTE | 2018-12-29 16:15 | HP.PCM_ITS ---
Problem List (1) Hyponatremia Status: Acute (2) Hypokalemia Status: Acute (3) Pancreatitis Status: Acute Qualifiers: Chronicity: acute Pancreatitis type: alcohol induced Acute pancreatitis complication: unspecified Qualified Code(s): K85.20 - Alcohol induced acute pancreatitis without necrosis or infection History of Present Illness Date of Admission: 12/29/18 Chief Complaint: N/V The patient is a 53 year old F is with 3-day history of intractable nausea and vomiting. Patient drinks 3 tall boys daily but last drink was 3 days ago. After stopping drinking she is been having intractable nausea and vomiting. Patient is confused so much the history is obtained to the emergency room physician as well as the patient's mother is at bedside. In the emergency room, patient was noted to have sodium 109, potassium 2.4 and a lipase of 844. Patient did receive IV fluids as well as potassium replacement. [] Past Medical History Past Medical History (Chronic Problems): Chronic Problems (Last Reviewed 08/27/18 @ 18:54 by Ani Eduardo NP-C) Chronic pancreatitis (Chronic) HPV (human papilloma virus) infection (Chronic) Alcoholic hepatitis (Chronic) HTN (hypertension) (Chronic) Anemia (Chronic) COPD (chronic obstructive pulmonary disease) (Chronic) Unintentional weight loss (Chronic) Tobacco abuse (Chronic) Alcohol abuse (Chronic) History of pancreatitis (Chronic) Tobacco use disorder (Chronic) GERD (gastroesophageal reflux disease) (Chronic) Chronic obstructive lung disease (Chronic) Benign hypertension (Chronic) Medical History: Medical History (Last Reviewed 12/29/18 @ 16:11 by Mahamed Fatima DO) Chronic pancreatitis (Chronic) K86.1 HPV (human papilloma virus) infection (Chronic) B97.7 Alcoholic hepatitis (Chronic) K70.10 HTN (hypertension) (Chronic) I10 Anemia (Chronic) D64.9 COPD (chronic obstructive pulmonary disease) (Chronic) J44.9 Unintentional weight loss (Chronic) R63.4 Tobacco abuse (Chronic) Z72.0 Alcohol abuse (Chronic) F10.10 History of pancreatitis (Chronic) Z87.19 Tobacco use disorder (Chronic) F17.200 GERD (gastroesophageal reflux disease) (Chronic) K21.9 Chronic obstructive lung disease (Chronic) J44.9 Benign hypertension (Chronic) I10 Allergies Penicillins Allergy (Verified 11/26/18 09:36) Hives Home Medications: Ambulatory Orders Medication Instructions Recorded Albuterol Inhaler [Ventolin Hfa] 1 - 2 puff INHALATION Q4H PRN PRN 07/28/13 Lisinopril [Zestril] 20 mg PO DAILY 10/29/15 Omeprazole [Prilosec] 20 mg PO DAILY 12/17/15 Lorazepam [Ativan] 0.5 mg PO TID PRN 05/12/16 Amlodipine [Norvasc] 5 mg PO DAILY 02/04/18 Albuterol Aerosols [Ventolin 2.5 mg INHALATION Q6H PRN PRN 02/27/18 Aerosols] Ferrous Sulfate 325 mg PO DAILY@0800 02/27/18 Vilazodone Hydrochloride [Viibryd] 40 mg PO DAILY 10/28/18 Cholecalciferol (Vitamin D3) 2,000 unit PO DAILY 12/29/18 [D3-2000] Ibuprofen 400 mg PO PRN PRN 12/29/18 Surgical History: Surgical History (Last Reviewed 12/29/18 @ 16:11 by Mahamed Fatima DO) History of colonoscopy (Resolved) Z98.890 History of appendectomy (Resolved) Z98.890, Z90.49 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 VTE Information - Inpt Only VTE Present on Admission: No VTE Mechan Device Prophylaxis: None VTE Pharm Prophylaxis ordered?: Yes Patient Problems: Active and Suspected Problems (Last Reviewed 08/27/18 @ 18:54 by Ani Eduardo NP-C) Hyponatremia (Acute) Hypokalemia (Acute) Pancreatitis (Acute) - Physical Exam General: - - Oriented to self and place. Year is 2020. HEENT: Atraumatic, PERRLA, EOMI, Normocephalic, - - No scleral icterus Oral: Moist Mucosa, No Gingival or Mucosal Lesions/ Ulcerations Neck: No Nodes, Thyroid Normal Size and Texture Lungs: Clear to auscultation, Normal air movement, No rhonchi, No wheeze Cardiovascular: Regular rate, Regular Rhythm, Normal S1, Normal S2, No murmurs Abdomen: Bowel Sounds Present, Soft, Non Tender, Non-Distended Extremities: No edema, No Calf Tenderness Skin: No rashes, No breakdown Musculoskeletal: No Tenderness to Palpation of Joints or Extremities, No Muscle Wasting Neurological: Neuro grossly intact, Sensory exam intact to light touch and pain, Coordination normal Psych/Mental Status: Appropriate, Anxious Vital Signs Temp Pulse Resp BP Pulse Ox 36.4 C L 94 17 130/75 H 98 12/29/18 15:03 12/29/18 15:03 12/29/18 15:03 12/29/18 15:03 12/29/18 15:03 Oxygen Delivery Method Room Air Weight: 42.184 kg Body Mass Index (BMI) 16.5 Laboratory Tests Past 24 Hrs 12/29/18 12/29/18 12/29/18 13:40 13:40 13:40 WBC 12.0 H RBC 4.94 Hgb 14.4 Hct 38.0 MCV 76.9 L MCH 29.1 MCHC 37.9 H RDW 12.4 RDW Differential 33.8 L Plt Count 134 L MPV 9.9 Immature Gran % (Auto) 0.600 Neut % (Auto) 72.8 H Lymph % (Auto) 13.5 L [place] % (Auto) 11.8 H Eos % (Auto) 1.1 Baso % (Auto) 0.2 Absolute Neuts (auto) 8.8 H Absolute Lymphs (auto) 1.62 Total Counted Not Reportable Platelet Estimate SLT DEC Anisocytosis RARE Microcytosis RARE Sodium 109 L* Potassium 2.4 L* Chloride 68 L* Carbon Dioxide 25.0 Anion Gap 16 H BUN 6 L Creatinine 0.30 L Estim Creat Clear Calc 141.10 Est GFR (MDRD) Af Amer 302 Est GFR (MDRD) Non-Af 250 BUN/Creatinine Ratio 20.3 H Glucose 72 L Calcium 9.0 Magnesium 1.3 L Total Bilirubin 1.10 H AST 125 H ALT 157 H Alkaline Phosphatase 148 H Total Protein 7.2 Albumin 3.5 Globulin 3.7 Albumin/Globulin Ratio 0.9 Lipase 844 H Assessment/Plan All Active Problems (Last Reviewed 08/27/18 @ 18:54 by Ani Eduardo, MARY-C) COPD exacerbation (Acute) Hyponatremia (Acute) Hypokalemia (Acute) Pancreatitis (Acute) Pneumonia (Acute) Stage 2 moderate COPD by GOLD classification (Acute) History of colonoscopy (Resolved) History of appendectomy (Resolved) 1. Hyponatremia * Suspect related with be reported joseph but also due to her potential nausea and vomiting possible some hypovolemic component * Replace * Monitor closely * No indication for hypertonic saline at this point time 2. Hypokalemia * Likely due to malnutrition but also the intractable nausea and vomiting * Replace * Check magnesium * Reassess 3. Pancreatitis * Likely alcohol induced * Not having much pain at this time * Will just monitor but if it gets worse consider ultrasound or CAT scan * Clear diet * IV fluids 4. Alcohol abuse * Last drink was 3 days ago * Thiamine and folate * Patient on benzodiazepines as outpatient we will continue with that as needed but patient does start manifesting signs of severe alcohol withdrawal would possibly need to do a Librium or lorazepam taper. 5. DVT prophylaxis with Lovenox Code Visit Inpatient E&M: 18431 Init Hosp L3
[2018-12-29] MEDS: 0.9% Normal Saline 1,000 ML 150 ML IV (17:41)
[2018-12-29 18:13] LABS: Anion Gap 9 (5-15); BUN 4 mg/dL (7-18); BUN/Creat Ratio 8.2 RATIO (10-20); Calcium,Total 7.7 mg/dL (8.5-10.1); Chloride 87 mmol/L (98-107); Creatinine, Serum 0.49 mg/dL (0.55-1.02); EST Glomerular Filtration Rate 139 mL/min (>60); Est Glom Filt Rate - Afr Amer 169 mL/min (>60); Estimated Creatinine Clearance 82.94 ml/min; Glucose 119 mg/dL (74-106); Potassium 2.4 mmol/L (3.5-5.1); Sodium Level 123 mmol/L (136-145)
[2018-12-29] MEDS: Acetaminophen 325 MG Tablet 650 MG PO (18:50)
[2018-12-29] MEDS: 0.9% Normal Saline 1,000 ML 75 ML IV (20:03)
[2018-12-29] MEDS: Ensure Clear 120 ML Liquid PO (22:29)
[2018-12-30] VITALS (11 sets, daily range): BP systolic 92–130; BP diastolic 59–80; PULSE 68–95; RESP 16–18; TEMP 36.4–36.8; O2SAT 92–97
[2018-12-30] MEDS: LORazepam 0.5 MG Tablet PO
[2018-12-30] MEDS: Magnesium Sulfate 4gm/100mL 4 GM/100 ML IV.SOLN. IV (00:47)
[2018-12-30 00:53] LABS: Anion Gap 9 (5-15); BUN 3 mg/dL (7-18); BUN/Creat Ratio 10.2 RATIO (10-20); Calcium,Total 7.8 mg/dL (8.5-10.1); Chloride 91 mmol/L (98-107); Creatinine, Serum 0.29 mg/dL (0.55-1.02); EST Glomerular Filtration Rate 252 mL/min (>60); Est Glom Filt Rate - Afr Amer 305 mL/min (>60); Estimated Creatinine Clearance 140.14 ml/min; Glucose 65 mg/dL (74-106); Potassium 2.5 mmol/L (3.5-5.1); Sodium Level 124 mmol/L (136-145)
[2018-12-30] MEDS: Potassium Chloride 10mEq/100mL 10 MEQ/100 ML IV.SOLN. 100 MEQ IV BOLUS ×5 (01:19→22:46)
[2018-12-30] MEDS: Potassium Chloride 40 MEQ in 0.9% Normal Saline 1,000 ML 75 MEQ IV (01:27)
--- NOTE | 2018-12-30 02:15 | NURSING ---
4 oz. cranberry juice given for blood glucose 65 on BMP. Pt. asymptomatic.
[2018-12-30 06:47] LABS: Anion Gap 9 (5-15); BUN 3 mg/dL (7-18); BUN/Creat Ratio 9.9 RATIO (10-20); Calcium,Total 7.8 mg/dL (8.5-10.1); Chloride 92 mmol/L (98-107); EST Glomerular Filtration Rate 241 mL/min (>60); Est Glom Filt Rate - Afr Amer 292 mL/min (>60); Estimated Creatinine Clearance 135.47 ml/min; Glucose 93 mg/dL (74-106); Lipase 1359 U/L (73-393); Magnesium 2.7 mg/dL (1.6-2.6); Potassium 3.4 mmol/L (3.5-5.1); Sodium Level 125 mmol/L (136-145)
--- NOTE | 2018-12-30 07:17 | PCM.PN.HOSP ---
Patient Problems: Active and Suspected Problems (Last Reviewed 12/29/18 @ 16:11 by Mahamed Fatima DO) Hyponatremia (Acute) Hypokalemia (Acute) Pancreatitis (Acute) Vitals/I&O's: Vital Signs Temp Pulse Resp BP Pulse Ox 97.7 F L 78 18 130/80 H 92 12/30/18 04:20 12/30/18 04:20 12/30/18 04:20 12/30/18 04:20 12/30/18 04:20 Oxygen Delivery Method Room Air Weight: 40.5 kg Body Mass Index (BMI) 15.7 Intake and Output for Last 24 Hours 12/28/18 12/29/18 12/30/18 23:59 23:59 23:59 Intake Total 1054 / 1054 672 / 672 Balance 1054 / 1054 672 / 672 Laboratory Results 12/29/18 13:40: WBC 12.0 H, RBC 4.94, Hgb 14.4, Hct 38.0, MCV 76.9 L, MCH 29.1, MCHC 37.9 H, RDW 12.4, RDW Differential 33.8 L, Plt Count 134 L, MPV 9.9, Immature Gran % (Auto) 0.600, Neut % (Auto) 72.8 H, Lymph % (Auto) 13.5 L, [place] % (Auto) 11.8 H, Eos % (Auto) 1.1, Baso % (Auto) 0.2, Absolute Neuts (auto) 8.8 H, Absolute Lymphs (auto) 1.62, Total Counted Not Reportable, Platelet Estimate SLT DEC, Anisocytosis RARE, Microcytosis RARE 12/29/18 13:40: Sodium 109 L*, Potassium 2.4 L*, Chloride 68 L*, Carbon Dioxide 25.0, Anion Gap 16 H, BUN 6 L, Creatinine 0.30 L, Estim Creat Clear Calc 141.10, Est GFR (MDRD) Af Amer 302, Est GFR (MDRD) Non-Af 250, BUN/Creatinine Ratio 20.3 H, Glucose 72 L, Calcium 9.0, Total Bilirubin 1.10 H, AST 125 H, ALT 157 H, Alkaline Phosphatase 148 H, Total Protein 7.2, Albumin 3.5, Globulin 3.7, Albumin/Globulin Ratio 0.9, Lipase 844 H 12/29/18 13:40: Magnesium 1.3 L 12/29/18 17:44: Sodium 123 L, Potassium 2.4 L*, Chloride 87 L, Carbon Dioxide 27.0, Anion Gap 9, BUN 4 L, Creatinine 0.49 L, Estim Creat Clear Calc 82.94, Est GFR (MDRD) Af Amer 169, Est GFR (MDRD) Non-Af 139, BUN/Creatinine Ratio 8.2 L, Glucose 119 H, Calcium 7.7 L 12/30/18 00:20: Sodium 124 L, Potassium 2.5 L*, Chloride 91 L, Carbon Dioxide 24.0, Anion Gap 9, BUN 3 L, Creatinine 0.29 L, Estim Creat Clear Calc 140.14, Est GFR (MDRD) Af Amer 305, Est GFR (MDRD) Non-Af 252, BUN/Creatinine Ratio 10.2, Glucose 65 L, Calcium 7.8 L 12/30/18 05:25: Sodium 125 L, Potassium 3.4 L, Chloride 92 L, Carbon Dioxide 24.0, Anion Gap 9, BUN 3 L, Creatinine 0.30 L, Estim Creat Clear Calc 135.47, Est GFR (MDRD) Af Amer 292, Est GFR (MDRD) Non-Af 241, BUN/Creatinine Ratio 9.9 L, Glucose 93, Calcium 7.8 L, Magnesium 2.7 H, Lipase 1359 H Current Medications Acetaminophen (Tylenol) 650 mg PO Q6H PRN PRN PRN Reason: Mild Pain (1-3)/Temp > 100.7 F Last Admin: 12/29/18 18:50 Dose: 650 mg Albuterol Sulfate (Ventolin Aerosols) 2.5 mg INHALATION Q6H PRN PRN PRN Reason: SOB &/OR WHEEZING Amlodipine Besylate (Norvasc) 5 mg PO DAILY [facility] Cholecalciferol (Vitamin D) 2,000 unit PO DAILY [facility] Enoxaparin Sodium (Lovenox) 40 mg SC DAILY@1000 [facility] Ferrous Sulfate (Ferrous Sulfate) 325 mg PO DAILY@0800 [facility] Folic Acid (F[facility] Acid) [facility] Stop: 01/01/19 08:01 Potassium Chloride 40 meq/ (Sodium Chloride) 1,020 mls @ 75 mls/hr IV .[id number] [facility] Stop: 12/30/18 14:19 Last Admin: 12/30/18 01:27 Dose: 75 mls/hr Ibuprofen (Motrin) 400 mg PO Q6H PRN PRN Reason: PAIN Lisinopril (Zestril) 20 mg PO DAILY [facility] Lorazepam (Ativan) 0.5 mg PO TID PRN PRN Reason: ANXIETY Last Admin: 12/30/18 00:00 Dose: 0.5 mg Magnesium Hydroxide (Milk Of Magnesia) 30 ml PO DAILY PRN PRN Reason: Constipation Methocarbamol (Methocarbamol) 750 mg PO Q6H PRN PRN PRN Reason: Muscle Aches Multivitamins (Multivitamin) [facility] Nutritional Formula (Lactose Free) (Ensure Clear) 120 ml PO 4X/DAY [facility] Last Admin: 12/29/18 22:29 Dose: 120 ml Ondansetron HCl (Zofran) 4 mg IV Q8H PRN PRN PRN Reason: NAUSEA Pantoprazole Sodium (Protonix) 20 mg PO DAILY [facility] Sodium Chloride () 5 - 15 ml IV UD PRN PRN Reason: SALINE FLUSH Thiamine HCl (Vitamin B1) 100 mg PO DAILYCM [facility] Stop: 01/01/19 08:01 Medical Necessity - Tobacco Use Smoking Status: Current every day smoker Tobacco Use: Cigarettes Assessment/Plan All Active Problems (Last Reviewed 12/29/18 @ 16:11 by Mahamed Fatima DO) COPD exacerbation (Acute) Hyponatremia (Acute) Hypokalemia (Acute) Pancreatitis (Acute) Pneumonia (Acute) Stage 2 moderate COPD by GOLD classification (Acute) History of colonoscopy (Resolved) History of appendectomy (Resolved)
[2018-12-30 08:32] LABS: AST(SGOT) 85 U/L (15-37); Alanine Aminotransfer ALT/SGPT 112 U/L (13-56); Albumin, Serum 2.8 g/dL (3.2-5.0); Alkaline Phosphatase 108 U/L (45-117); Bilirubin, Direct 0.26 mg/dL (0.00-0.30); Globulin 2.9 g/dL (2.2-4.2); Protein, Total 5.7 g/dL (6.4-8.2)
[2018-12-30] MEDS: amLODIPine 5 MG Tablet PO (09:49)
[2018-12-30] MEDS: Folic Acid 1 MG Tablet PO (09:49)
[2018-12-30] MEDS: Thiamine Hydrochloride 100 MG Tablet PO (09:49)
[2018-12-30] MEDS: Ferrous Sulfate 325 MG Tablet PO (09:49)
[2018-12-30] MEDS: Enoxaparin 40 MG/0.4 ML Syringe SC (09:49)
[2018-12-30] MEDS: Multivitamins,Therapeutic Tablet 1 TABLET PO (09:49)
[2018-12-30] MEDS: Pantoprazole Sodium 20 MG Tablet PO (09:50)
[2018-12-30] MEDS: Lisinopril 20 MG Tablet PO (09:50)
--- NOTE | 2018-12-30 11:23 | CASEMGMT ---
SARWAT LOMELI assessment: Face to Face with patient for initial transition planning/care coordination assessment. SARWAT LOMELI introduced self and role at [facility], pt voices understanding and consents to assessment at this time. Pt is sitting up in bed in no distress at this time. Pt is A/O x4 at this time and answers all questions appropriately at this time. Pt has family member at bedside during assessment. Care providers, pharmacy, and demographics verified at this time. PCP: Angelia DILLON Specialists: roney Perdue Preferred Pharmacy: [place] Insurance: [facility] Prescription Benefit: [facility] Living Will/HPOA: Pt states does not have LW/HPOA and declines info at this time. LNOK: Caitie Lazo, daughter; Domonique Augustine, sister Living Arrangements: Pt states lives with granddaughter in apartment with a flight of stairs and bathroom with shower is on 2nd floor. Pt states no concerns at home at this time. Pt states is normally independent with ADL's. Transportation: Pt states drives self and states no transportation concerns at this time. DME/HHC: Pt states has prn home oxygen set up thru [employer]. Pt states no other DME or need for any at this time. Pt states no hx of HHC or SNF in the past. Pt states no concerns with going home at time of discharge. Pt states is disabled. Pt states smokes 2 packs/day and drinks 6pk of 'tall boys' daily. Pt states no further concerns/needs at this time. CM to follow for increased home oxygen need and any further discharge planning/needs. Advised pt to ask for CM if any further questions/concerns/needs arise, voices understanding. Pt Goal: [place] SARWAT LOMELI
[2018-12-30] MEDS: Ensure Clear 120 ML Liquid PO (11:50)
[2018-12-30] MEDS: Acetaminophen 325 MG Tablet 650 MG PO ×2 (11:52→18:13)
--- NOTE | 2018-12-30 13:14 | PN_ITS ---
<Gagan Valencia - Last Filed: 12/30/18 13:07> Patient Problems: Active and Suspected Problems (Last Reviewed 12/29/18 @ 16:11 by Mahamed Fatima DO) Hyponatremia (Acute) Hypokalemia (Acute) Pancreatitis (Acute) Subjective: Pt resting comfortably in bed. She feels that she is still withdrawing, but shakiness has improved. She has no SOB. She smokes 2-4 packs per day. She has a nonproductive cough. Denies auditory/visual hallucinations. No hx withdraw seizure. Drinks 6 ppd of tall boys. No N/V. Mild midepigastric pain. She wants to try to advance her diet. - Physical Exam General: Alert, Oriented x3, Cooperative HEENT: Atraumatic, PERRLA, EOMI, Normocephalic Neck: Supple, No JVD, Negative Carotid Bruits Lungs: Clear to auscultation, Normal air movement Cardiovascular: Regular rate, No murmurs Abdomen: Bowel Sounds Present, Soft, Non Tender Extremities: No edema, Capillary Refill Less than 3 Seconds Skin: No rashes, No breakdown Musculoskeletal: No Tenderness to Palpation of Joints or Extremities Neurological: Cranial nerves II-XII grossly intact Psych/Mental Status: Normal Affect, Appropriate, Alert and oriented to time, place, person, mood and affect Vital Signs Temp Pulse Resp BP Pulse Ox 97.6 F L 83 16 94/59 L 97 12/30/18 09:34 12/30/18 10:49 12/30/18 09:34 12/30/18 09:34 12/30/18 09:34 Oxygen Delivery Method Room Air Weight: 89 lb 4.595 oz Body Mass Index (BMI) 15.7 Intake and Output for Last 24 Hours 12/28/18 12/29/18 12/30/18 23:59 23:59 23:59 Intake Total 1054 / 1054 1551 / 1551 Balance 1054 / 1054 1551 / 1551 Laboratory Tests Past 24 Hrs 12/29/18 12/29/18 12/29/18 13:40 13:40 13:40 WBC 12.0 H RBC 4.94 Hgb 14.4 Hct 38.0 MCV 76.9 L MCH 29.1 MCHC 37.9 H RDW 12.4 RDW Differential 33.8 L Plt Count 134 L MPV 9.9 Immature Gran % (Auto) 0.600 Neut % (Auto) 72.8 H Lymph % (Auto) 13.5 L [place] % (Auto) 11.8 H Eos % (Auto) 1.1 Baso % (Auto) 0.2 Absolute Neuts (auto) 8.8 H Absolute Lymphs (auto) 1.62 Total Counted Not Reportable Platelet Estimate SLT DEC Anisocytosis RARE Microcytosis RARE Sodium 109 L* Potassium 2.4 L* Chloride 68 L* Carbon Dioxide 25.0 Anion Gap 16 H BUN 6 L Creatinine 0.30 L Estim Creat Clear Calc 141.10 Est GFR (MDRD) Af Amer 302 Est GFR (MDRD) Non-Af 250 BUN/Creatinine Ratio 20.3 H Glucose 72 L Calcium 9.0 Phosphorus Magnesium 1.3 L Total Bilirubin 1.10 H Direct Bilirubin AST 125 H ALT 157 H Alkaline Phosphatase 148 H Total Protein 7.2 Albumin 3.5 Globulin 3.7 Albumin/Globulin Ratio 0.9 Lipase 844 H 12/29/18 12/30/18 12/30/18 17:44 00:20 05:25 WBC RBC Hgb Hct MCV MCH MCHC RDW RDW Differential Plt Count MPV Immature Gran % (Auto) Neut % (Auto) Lymph % (Auto) [place] % (Auto) Eos % (Auto) Baso % (Auto) Absolute Neuts (auto) Absolute Lymphs (auto) Total Counted Platelet Estimate Anisocytosis Microcytosis Sodium 123 L 124 L 125 L Potassium 2.4 L* 2.5 L* 3.4 L Chloride 87 L 91 L 92 L Carbon Dioxide 27.0 24.0 24.0 Anion Gap 9 9 9 BUN 4 L 3 L 3 L Creatinine 0.49 L 0.29 L 0.30 L Estim Creat Clear Calc 82.94 140.14 135.47 Est GFR (MDRD) Af Amer 169 305 292 Est GFR (MDRD) Non-Af 139 252 241 BUN/Creatinine Ratio 8.2 L 10.2 9.9 L Glucose 119 H 65 L 93 Calcium 7.7 L 7.8 L 7.8 L Phosphorus Magnesium 2.7 H Total Bilirubin Direct Bilirubin AST ALT Alkaline Phosphatase Total Protein Albumin Globulin Albumin/Globulin Ratio Lipase 1359 H 12/30/18 12/30/18 05:25 05:25 WBC RBC Hgb Hct MCV MCH MCHC RDW RDW Differential Plt Count MPV Immature Gran % (Auto) Neut % (Auto) Lymph % (Auto) [place] % (Auto) Eos % (Auto) Baso % (Auto) Absolute Neuts (auto) Absolute Lymphs (auto) Total Counted Platelet Estimate Anisocytosis Microcytosis Sodium Potassium Chloride Carbon Dioxide Anion Gap BUN Creatinine Estim Creat Clear Calc Est GFR (MDRD) Af Amer Est GFR (MDRD) Non-Af BUN/Creatinine Ratio Glucose Calcium Phosphorus 2.0 L Magnesium Total Bilirubin 0.70 Direct Bilirubin 0.26 AST 85 H ALT 112 H Alkaline Phosphatase 108 Total Protein 5.7 L Albumin 2.8 L Globulin 2.9 Albumin/Globulin Ratio Lipase Medical Necessity - Tobacco Use Smoking Status: Current every day smoker Tobacco Use: Cigarettes Assessment/Plan All Active Problems (Last Reviewed 12/29/18 @ 16:11 by Mahamed Fatima DO) COPD exacerbation (Acute) Hyponatremia (Acute) Hypokalemia (Acute) Pancreatitis (Acute) Pneumonia (Acute) Stage 2 moderate COPD by GOLD classification (Acute) History of colonoscopy (Resolved) History of appendectomy (Resolved) 1. Hyponatremia/kalemia/magnesemia/phosphatemia - 2/2 malnutrition and alcholism. Improving. Continue current therapy. 2. Alcoholism with acute withdrawal - continue ativan, folate, thiamine, MVI. 3. Mild pancreatitis - advance diet slowly. pain minimal, no N/V. Continue IV fluids. 4. HTN - stable 5. Nicotine abuse - denies COPD, however 2-4 ppd smoker. PRN aerosols. 6. GERD - on ppi DVT ppx: lovenox DC planning: likely home when stable, new vision for outpatient planning. This patient was seen by Gagan Valencia PA-C under the supervision of Dr. Arreola. <Ciarra Arreola - Last Filed: 12/30/18 14:03> - Physical Exam Vital Signs Temp Pulse Resp BP Pulse Ox 97.8 F 87 16 108/72 96 12/30/18 13:45 12/30/18 13:45 12/30/18 13:45 12/30/18 13:45 12/30/18 13:45 Oxygen Delivery Method Room Air Weight: 40.5 kg Body Mass Index (BMI) 15.7 Intake and Output for Last 24 Hours 12/28/18 12/29/1819 23:59 23:59 23:59 Intake Total 1054 / 1054 1551 / 1551 Balance 1054 / 1054 1551 / 1551 Laboratory Tests Past 24 Hrs 12/29/18 12/29/18 12/29/18 13:40 13:40 13:40 WBC 12.0 H RBC 4.94 Hgb 14.4 Hct 38.0 MCV 76.9 L MCH 29.1 MCHC 37.9 H RDW 12.4 RDW Differential 33.8 L Plt Count 134 L MPV 9.9 Immature Gran % (Auto) 0.600 Neut % (Auto) 72.8 H Lymph % (Auto) 13.5 L [place] % (Auto) 11.8 H Eos % (Auto) 1.1 Baso % (Auto) 0.2 Absolute Neuts (auto) 8.8 H Absolute Lymphs (auto) 1.62 Total Counted Not Reportable Platelet Estimate SLT DEC Anisocytosis RARE Microcytosis RARE Sodium 109 L* Potassium 2.4 L* Chloride 68 L* Carbon Dioxide 25.0 Anion Gap 16 H BUN 6 L Creatinine 0.30 L Estim Creat Clear Calc 141.10 Est GFR (MDRD) Af Amer 302 Est GFR (MDRD) Non-Af 250 BUN/Creatinine Ratio 20.3 H Glucose 72 L Calcium 9.0 Phosphorus Magnesium 1.3 L Total Bilirubin 1.10 H Direct Bilirubin AST 125 H ALT 157 H Alkaline Phosphatase 148 H Total Protein 7.2 Albumin 3.5 Globulin 3.7 Albumin/Globulin Ratio 0.9 Lipase 844 H 12/29/18 12/30/18 12/30/18 17:44 00:20 05:25 WBC RBC Hgb Hct MCV MCH MCHC RDW RDW Differential Plt Count MPV Immature Gran % (Auto) Neut % (Auto) Lymph % (Auto) [place] % (Auto) Eos % (Auto) Baso % (Auto) Absolute Neuts (auto) Absolute Lymphs (auto) Total Counted Platelet Estimate Anisocytosis Microcytosis Sodium 123 L 124 L 125 L Potassium 2.4 L* 2.5 L* 3.4 L Chloride 87 L 91 L 92 L Carbon Dioxide 27.0 24.0 24.0 Anion Gap 9 9 9 BUN 4 L 3 L 3 L Creatinine 0.49 L 0.29 L 0.30 L Estim Creat Clear Calc 82.94 140.14 135.47 Est GFR (MDRD) Af Amer 169 305 292 Est GFR (MDRD) Non-Af 139 252 241 BUN/Creatinine Ratio 8.2 L 10.2 9.9 L Glucose 119 H 65 L 93 Calcium 7.7 L 7.8 L 7.8 L Phosphorus Magnesium 2.7 H Total Bilirubin Direct Bilirubin AST ALT Alkaline Phosphatase Total Protein Albumin Globulin Albumin/Globulin Ratio Lipase 1359 H 12/30/18 12/30/18 05:25 05:25 WBC RBC Hgb Hct MCV MCH MCHC RDW RDW Differential Plt Count MPV Immature Gran % (Auto) Neut % (Auto) Lymph % (Auto) [place] % (Auto) Eos % (Auto) Baso % (Auto) Absolute Neuts (auto) Absolute Lymphs (auto) Total Counted Platelet Estimate Anisocytosis Microcytosis Sodium Potassium Chloride Carbon Dioxide Anion Gap BUN Creatinine Estim Creat Clear Calc Est GFR (MDRD) Af Amer Est GFR (MDRD) Non-Af BUN/Creatinine Ratio Glucose Calcium Phosphorus 2.0 L Magnesium Total Bilirubin 0.70 Direct Bilirubin 0.26 AST 85 H ALT 112 H Alkaline Phosphatase 108 Total Protein 5.7 L Albumin 2.8 L Globulin 2.9 Albumin/Globulin Ratio Lipase Assessment/Plan This patient was seen in conjunction with RICARDO Corbin. I have independently interviewed and examined the patient and reviewed pertinent historical, laboratory, and other data. Please refer to RICARDO Corbin note for his patient's presentation, findings, and recommendations. I have reviewed and his note and concur with his documentation Patient was seen and examined. Been having frequent bowel movement. Complains of abdominal discomfort. Has had 2 bowel movements. Denies fever, chills, nausea, vomiting. Vitals are stable. Physical Exam: Gen: Appears unwell, appears cachetic, not pale, not jaundiced CVS:HS I +II, regular, no murmurs RESP: CTA GI:soft, BS present and normal, nontender, no palpable organs EXT:No edema Labs reviewed. ASSESSMENT: 1. Electrolyte imbalances-hyponatremia, hypokalemia, hypomagnesemia, hypophosphatemia 2. Severe malnutrition, BMI 15.8 3. Acute alcohol withdrawal 4. Mild pancreatitis 5. Hypertension 6. Nicotine use disorder 7. GERD Plan: Continue to replenish electrolytes Recheck blood work at 2 PM and in a.m. Continue on clear liquid diet and advance diet as tolerated Code Visit Inpatient E&M: 67945 Subs Hosp L2
--- NOTE | 2018-12-30 14:09 | NURSING ---
Patient states she had been on antidiarrheal medication in the past but couldn't remember what it was called. Called [facility] to confirm. Pharmacist states she was on Loperamide 2mg capsule po q6h as needed for diarrhea.
[2018-12-30 15:11] LABS: Anion Gap 9 (5-15); BUN 2 mg/dL (7-18); BUN/Creat Ratio 5.9 RATIO (10-20); Chloride 97 mmol/L (98-107); Creatinine, Serum 0.34 mg/dL (0.55-1.02); EST Glomerular Filtration Rate 211 mL/min (>60); Est Glom Filt Rate - Afr Amer 256 mL/min (>60); Estimated Creatinine Clearance 119.53 ml/min; Glucose 74 mg/dL (74-106); Potassium 3.2 mmol/L (3.5-5.1); Sodium Level 130 mmol/L (136-145)
--- NOTE | 2018-12-30 15:36 | CHAPLAIN ---
Type of Pastoral Visit _x__ Initial Visit ___ Follow-up Visit ___ On-call Visit ___ General Patient Visit ___ Spiritual Assessment ___ Family Conference ___ Bereavement ___ Rapid Response ___ Code Blue ___ Other (describe below) Pastoral Care Referral From _x__ Patient ___ Family ___ Nurse ___ Physician ___ Human Resources Benefits Coordinator ___ Pan Reclaim Processor ___ Other (describe below) Sacrament/Intervention _x__ Active listening ___ Anointing ___ Anabaptism ___ Bereavement ___ Communion ___ Swapna exploration ___ ___ Life review _x__ Prayer ___ Reconciliation ___ Sacrament of Sick ___ Supportive presence ___ Wedding ___ Other (describe below) Pastoral Comments
[2018-12-30] MEDS: Na Biphos/Potassium Phosphate PACKET 1 PACKET PO (18:14)
[2018-12-30] MEDS: 0.9% NaCl Peripheral Flush Adult/Peds IV (22:46)
[2018-12-31] VITALS (7 sets, daily range): BP systolic 103–129; BP diastolic 74–91; PULSE 78–106; RESP 16–17; TEMP 36.5–36.8; O2SAT 92–95
[2018-12-31] MEDS: Potassium Chloride 10mEq/100mL 10 MEQ/100 ML IV.SOLN. 100 MEQ IV BOLUS ×3 (00:45→04:58)
[2018-12-31 06:06] LABS: Absolute Lymphocyte Count 2.08 X10^3/ul (0.83-4.51); Absolute Neutrophil Count 3.2 X10^3/uL (2.0-7.7); Basophil# 0.08 X10^3/uL; Basophil% 1.3 % (0-1); Eosinophil# 0.17 X10^3/uL; Eosinophils% 2.7 % (0-5); Hematocrit 36.6 % (37-47); Hemoglobin 13.1 g/dl (12.0-15.0); Lymphocyte # 2.08 X10^3/ul (4.0); Lymphocyte % 32.9 % (19-41); Mean Corp Hgb Conc 35.8 g/gl (32-36); Mean Corpuscular Hgb 29.6 pg (27.0-32.0); Mean Corpuscular Volume 82.8 fL (81-99); Mean Platelet Vol. 9.9 fl (6.2-12.0); Monocyte# 0.77 X10^3/uL; Monocyte% 12.2 % (0-10); Neutrophil # 3.21 X10^3/uL (2.7-7.7); Neutrophil % 50.7 % (47-70); Platelet Count 150 K/mm3 (150-450); RBC Distribution Width CV 13.5 % (11.6-14.6); Red Blood Count 4.42 M/mm3 (4.2-5.4); White Blood Count 6.3 K/mm3 (4.4-11.0)
[2018-12-31 06:09] LABS: POSITIVE COUNT NO; POSITIVE DIFFERENTIAL NO; POSITIVE MORPHOLOGY NO
[2018-12-31 06:11] LABS: Anion Gap 6 (5-15); BUN 2 mg/dL (7-18); BUN/Creat Ratio 8.3 RATIO (10-20); Calcium,Total 8.6 mg/dL (8.5-10.1); Chloride 97 mmol/L (98-107); Creatinine, Serum 0.24 mg/dL (0.55-1.02); EST Glomerular Filtration Rate 317 mL/min (>60); Est Glom Filt Rate - Afr Amer 383 mL/min (>60); Estimated Creatinine Clearance 169.34 ml/min; Glucose 85 mg/dL (74-106); Lipase 572 U/L (73-393); Potassium 3.8 mmol/L (3.5-5.1); Sodium Level 130 mmol/L (136-145)
[2018-12-31] MEDS: Na Biphos/Potassium Phosphate PACKET 1 PACKET PO (06:51)
--- NOTE | 2018-12-31 08:44 | DCINST_ITS ---
- Discharge Diagnoses Current Active Problems: Current Active and Chronic Problems (Last Reviewed 12/29/18 @ 16:11 by Mahamed Fatima DO) Hyponatremia (Acute) Hypokalemia (Acute) Pancreatitis (Acute) You will use the following diet at home:: Cardiac, Other - no alcohol Your food should be the consistency of: Regular Your liquids should be the consistency of: Regular/Thin Discharge Activity: Return to Normal Activity Allergies/Adverse Reactions: Allergies Penicillins Allergy (Verified 11/26/18 09:36) Hives Medications to take at Discharge Albuterol Inhaler [Ventolin Hfa] 1 - 2 puff INHALATION Q4H PRN PRN 07/28/13 Lisinopril [Zestril] 20 mg PO DAILY 10/29/15 Omeprazole [Prilosec] 20 mg PO DAILY 12/17/15 Lorazepam [Ativan] 0.5 mg PO TID PRN 05/12/16 Amlodipine [Norvasc] 5 mg PO DAILY 02/04/18 Albuterol Aerosols [Ventolin Aerosols] 2.5 mg INHALATION Q6H PRN PRN 02/27/18 Ferrous Sulfate 325 mg PO DAILY@0800 02/27/18 Vilazodone Hydrochloride [Viibryd] 40 mg PO DAILY 10/28/18 Cholecalciferol (Vitamin D3) [D3-2000] 2,000 unit PO DAILY 12/29/18 Loperamide [Imodium] 2 mg PO Q6H PRN PRN 12/30/18 Ensure Enlive 120 ml PO 4X/DAY #28 bottle 12/31/18 Multivitamins,Therapeutic [Multivitamin] 1 tablet PO DAILYCM tablet 12/31/18 The following prescriptions were given: Ensure Enlive 120 ml PO 4X/DAY #28 bottle Primary Care Physician: Bernard Galan III, MD [Primary Care Provider] - Please follow up with your Primary Care Physician in: 1-2 weeks Test Results: Test results from this visit will be discussed in further detail at your follow- up appointment, if applicable. Proposed Discharge Date: 12/31/18
[2018-12-31] MEDS: Lisinopril 20 MG Tablet PO (08:52)
[2018-12-31] MEDS: Pantoprazole Sodium 20 MG Tablet PO (08:52)
[2018-12-31] MEDS: Thiamine Hydrochloride 100 MG Tablet PO (08:52)
[2018-12-31] MEDS: amLODIPine 5 MG Tablet PO (08:52)
[2018-12-31] MEDS: Enoxaparin 40 MG/0.4 ML Syringe SC (08:52)
[2018-12-31] MEDS: Folic Acid 1 MG Tablet PO (08:53)
[2018-12-31] MEDS: Ferrous Sulfate 325 MG Tablet PO (08:53)
[2018-12-31] MEDS: Multivitamins,Therapeutic Tablet 1 TABLET PO (08:53)
[2018-12-31] MEDS: Acetaminophen 325 MG Tablet 650 MG PO (09:02)
--- NOTE | 2018-12-31 15:13 | DS.PCM_ITS ---
<Gagan Valencia - Last Filed: 12/31/18 15:09> Discharge Date and Diagnosis Date of Admission: 12/29/18 Date of Discharge: 12/31/18 - Primary Discharge Diagnosis Hypokalemia, hypophosphatemia, hypomagnesemia, hyponatremia 2/2 alcoholism and malnutrition Alcoholism with withdrawal Mild pancreatitis Nicotine abuse GERD suspected underlying COPD - Secondary Discharge Diagnosis Chronic Problems (Last Reviewed 12/29/18 @ 16:11 by Mahamed Fatima DO) Chronic pancreatitis (Chronic) HPV (human papilloma virus) infection (Chronic) Alcoholic hepatitis (Chronic) HTN (hypertension) (Chronic) Anemia (Chronic) COPD (chronic obstructive pulmonary disease) (Chronic) Unintentional weight loss (Chronic) Tobacco abuse (Chronic) Alcohol abuse (Chronic) History of pancreatitis (Chronic) Tobacco use disorder (Chronic) GERD (gastroesophageal reflux disease) (Chronic) Chronic obstructive lung disease (Chronic) Benign hypertension (Chronic) Hospital Course and Treatment Operations: None Procedures: None Summary of Care Provided: Hospital Course: The patient is a 53 year old F with a history of pancreatitis, alcoholism, nicotine abuse smoking 2-4 packs/day, who presented to the emergency room with complaints of nausea and vomiting for the past 3 days. She drinks about a sixpack of large beers per day. She was found in the emergency room to have hyponatremia, hypokalemia, her magnesium and phosphorus were also checked and these were decreased as well. Lipase was elevated at 844. She was given IV fluids and potassium replacement and admitted to the PCU on telemetry. She had no events on telemetry. She is given Ativan for alcohol withdrawal along with multivitamins, folate, thiamine. Dietary evaluated. She has noted weight loss recently has a BMI of 15, and has significant electrolyte imbalances. She is felt to be severely malnourished. We advised her strongly on discontinuation of alcohol , as well as tobacco products as she is heavily abusing cigarette smoking 2-4 packs/day. Her diet was advanced and she had no further issues-no further nausea, vomiting, or abdominal pain. Her electrolytes were replaced. She was discharged home in stable condition and advised to follow-up with her PCP in 1-2 weeks. She complained of chronic diarrhea as well as she was here and enteric panel was sent, results are pending at this time. At this time her stools are described as soft and occurring about once per day. This patient was seen by Gagan Valencia PA-C under the supervision of Doctor Maxwell. [] - Physical Exam General: Alert, Oriented x3, Cooperative, - - frail HEENT: Atraumatic, PERRLA, EOMI, Normocephalic Neck: Supple, No JVD, Negative Carotid Bruits Lungs: Diminished Cardiovascular: Regular rate, No murmurs Abdomen: Bowel Sounds Present, Soft, Non Tender Extremities: No edema, Capillary Refill Less than 3 Seconds Skin: No rashes, No breakdown Musculoskeletal: No Tenderness to Palpation of Joints or Extremities Neurological: Cranial nerves II-XII grossly intact Psych/Mental Status: Normal Affect, Appropriate, Alert and oriented to time, place, person, mood and affect Vital Signs Temp Pulse Resp BP Pulse Ox 97.7 F L 106 H 16 103/74 94 12/31/18 13:02 12/31/18 13:02 12/31/18 13:02 12/31/18 13:02 12/31/18 13:02 Oxygen Delivery Method Room Air Weight: 89 lb 4.595 oz Body Mass Index (BMI) 15.7 Intake and Output for Last 24 Hours 12/29/18 12/30/18 12/31/18 23:59 23:59 23:59 Intake Total 1054 / 1054 1551 / 1551 1552 / 1552 Output Total 1700 / 1700 Balance 1054 / 1054 1551 / 1551 -148 / -148 Microbiology Past 72 Hours 12/31/18 10:00 C. difficile DNA Amplification - Final Stool Laboratory Tests Past 24 Hrs 12/30/18 12/31/18 12/31/18 14:20 05:36 05:36 WBC 6.3 RBC 4.42 Hgb 13.1 Hct 36.6 L MCV 82.8 MCH 29.6 MCHC 35.8 RDW 13.5 RDW Differential 41.0 Plt Count 150 MPV 9.9 Immature Gran % (Auto) 0.200 Neut % (Auto) 50.7 Lymph % (Auto) 32.9 [place] % (Auto) 12.2 H Eos % (Auto) 2.7 Baso % (Auto) 1.3 H Absolute Neuts (auto) 3.2 Absolute Lymphs (auto) 2.08 Total Counted Not Reportable Sodium 130 L 130 L Potassium 3.2 L 3.8 Chloride 97 L 97 L Carbon Dioxide 24.0 27.0 Anion Gap 9 6 BUN 2 L 2 L Creatinine 0.34 L 0.24 L Estim Creat Clear Calc 119.53 169.34 Est GFR (MDRD) Af Amer 256 383 Est GFR (MDRD) Non-Af 211 317 BUN/Creatinine Ratio 5.9 L 8.3 L Glucose 74 85 Calcium 8.0 L 8.6 Lipase 572 H Discharge Diet: - - no alcohol Discharge Activity: Return to Normal Activity Home Medications: Medications to take at Discharge Albuterol Inhaler [Ventolin Hfa] 1 - 2 puff INHALATION Q4H PRN PRN 07/28/13 Lisinopril [Zestril] 20 mg PO DAILY 10/29/15 Omeprazole [Prilosec] 20 mg PO DAILY 12/17/15 Lorazepam [Ativan] 0.5 mg PO TID PRN 05/12/16 Amlodipine [Norvasc] 5 mg PO DAILY 02/04/18 Albuterol Aerosols [Ventolin Aerosols] 2.5 mg INHALATION Q6H PRN PRN 02/27/18 Ferrous Sulfate 325 mg PO DAILY@0800 02/27/18 Vilazodone Hydrochloride [Viibryd] 40 mg PO DAILY 10/28/18 Cholecalciferol (Vitamin D3) [D3-2000] 2,000 unit PO DAILY 12/29/18 Loperamide [Imodium] 2 mg PO Q6H PRN PRN 12/30/18 Ensure Enlive 120 ml PO 4X/DAY #28 bottle 12/31/18 Multivitamins,Therapeutic [Multivitamin] 1 tablet PO DAILYCM tablet 12/31/18 Following Prescrptions Were Given to Patient: Ensure Enlive 120 ml PO 4X/DAY #28 bottle Primary Care Physician: Bernard Galan III, MD [Primary Care Provider] - Please follow up with your Primary Care Physician in: 1-2 weeks Please Follow Up With: Bernard Galan III, MD Disposition: Home Minutes spent on discharge:: 35 Patient Condition:: Stable Medical Necessity - Tobacco Use Smoking Status: Current every day smoker Tobacco Use: Cigarettes Meaningful Use Info Meaningful Use Diagnoses (Choose all that apply): None applicable <Ciarra Arreola - Last Filed: 12/31/18 16:14> Discharge Date and Diagnosis - Secondary Discharge Diagnosis Chronic Problems (Last Reviewed 12/29/18 @ 16:11 by Mahamed Fatima DO) Chronic pancreatitis (Chronic) HPV (human papilloma virus) infection (Chronic) Alcoholic hepatitis (Chronic) HTN (hypertension) (Chronic) Anemia (Chronic) COPD (chronic obstructive pulmonary disease) (Chronic) Unintentional weight loss (Chronic) Tobacco abuse (Chronic) Alcohol abuse (Chronic) History of pancreatitis (Chronic) Tobacco use disorder (Chronic) GERD (gastroesophageal reflux disease) (Chronic) Chronic obstructive lung disease (Chronic) Benign hypertension (Chronic) Hospital Course and Treatment Summary of Care Provided: This patient was seen in conjunction with RICARDO Corbin. I have independently interviewed and examined the patient and reviewed pertinent historical, laboratory, and other data. Please refer to RICARDO Corbin note for his p vinicius's presentation, findings, and recommendations. I have reviewed and his note and concur with his documentation 53-year-old female with past medical history of chronic alcoholism, nicotine dependence, pancreatitis comes in with complaints of nausea and vomiting ongoing for 3 days. Patient admits to drinking 6 packs of large beers a day. Her admitting white cell count was 12.0, sodium was 109, potassium was 2.4, chloride 68, ALP was 148, AST was 27, AST was 125, lipase was 844. Patient also had hypomagnesemia. Her electrolytes were replaced, she was started on IV fluids, sodium improved initially dramatically, and later on plateaued. Patient continued to improve on the floor. She had about 2 bowel movements a day. Stool for enteric panel was pending at time of discharge. Denied any fever or chills. Able to tolerate a regular diet. On the day of discharge, patient was tearful, was concerned about diarrhea although she suggests 1 or 2 bowel movements a morning. She was concern about possible C. difficile. Reassured patient. Physical Exam: Gen: Appears unwell, appears cachetic, not pale, not jaundiced CVS:HS I +II, regular, no murmurs RESP: CTA GI:soft, BS present and normal, nontender, no palpable organs EXT:No edema - Physical Exam Vital Signs Temp Pulse Resp BP Pulse Ox 97.7 F L 106 H 16 103/74 94 12/31/18 13:02 12/31/18 13:02 12/31/18 13:02 12/31/18 13:02 12/31/18 13:02 Oxygen Delivery Method Room Air Weight: 40.5 kg Body Mass Index (BMI) 15.7 Intake and Output for Last 24 Hours 12/29/18 12/30/18 12/31/18 23:59 23:59 23:59 Intake Total 1054 / 1054 1551 / 1551 1552 / 1552 Output Total 1700 / 1700 Balance 1054 / 1054 1551 / 1551 -148 / -148 Microbiology Past 72 Hours 12/31/18 10:00 C. difficile DNA Amplification - Final Stool Laboratory Tests Past 24 Hrs 12/31/18 12/31/18 05:36 05:36 WBC 6.3 RBC 4.42 Hgb 13.1 Hct 36.6 L MCV 82.8 MCH 29.6 MCHC 35.8 RDW 13.5 RDW Differential 41.0 Plt Count 150 MPV 9.9 Immature Gran % (Auto) 0.200 Neut % (Auto) 50.7 Lymph % (Auto) 32.9 [place] % (Auto) 12.2 H Eos % (Auto) 2.7 Baso % (Auto) 1.3 H Absolute Neuts (auto) 3.2 Absolute Lymphs (auto) 2.08 Total Counted Not Reportable Sodium 130 L Potassium 3.8 Chloride 97 L Carbon Dioxide 27.0 Anion Gap 6 BUN 2 L Creatinine 0.24 L Estim Creat Clear Calc 169.34 Est GFR (MDRD) Af Amer 383 Est GFR (MDRD) Non-Af 317 BUN/Creatinine Ratio 8.3 L Glucose 85 Calcium 8.6 Lipase 572 H Code Visit Inpatient E&M: 00230 Disch Hosp
--- NOTE | 2019-01-03 13:40 | CASEMGMT ---
Addendum entered by Red Bone 01/03/19 14:21: Pt returned phone call to SARWAT LOMELI. States she is doing well, no questions re: instructions, prescriptions or f/u. Pt states her care was good and no care improvement suggestions made. Vero GALLOWAY RN ACM Original Note: SARWAT LOMELI DC PHONE CALL DC DATE: 12/31/18 DC Disposition: Home LACE/STRATA: 08/31 Attempted call to home phone. No answer. Vero GALLOWAY RN ACM
== END 2018-12-31 13:23 | disposition home or self-care (01) | DRG 426 ==
LOC: ED 13:39 → PCU 16:00
PROVIDERS: Physician Assistant; Emergency Provider Emergency Medicine; Family Provider Family Medicine; PCP Family Medicine; Visit Provider Internal Medicine
DX: E87.1 Hypo-osmolality and hyponatremia (principal); E87.6 Hypokalemia; K85.90 Acute pancreatitis without necrosis or infection, unspecified; F10.239 Alcohol dependence with withdrawal, unspecified; F17.210 Nicotine dependence, cigarettes, uncomplicated; E43 Unspecified severe protein-calorie malnutrition; Z68.1 Body mass index [BMI] 19.9 or less, adult; K21.9 Gastro-esophageal reflux disease without esophagitis; E83.39 Other disorders of phosphorus metabolism; E83.42 Hypomagnesemia; I10 Essential (primary) hypertension; J44.9 Chronic obstructive pulmonary disease, unspecified; K86.1 Other chronic pancreatitis
CPT/HCPCS: 36415; 80048; 80053; 80076; 83690; 83735; 84100; 85025; 87493; 87506; 93005; 97162; 97166; 97802; 99284; J7030; A4216; J2405

== ENCOUNTER 2019-01-16 10:53 | Emergency (ER) | payer MEDICAID, SELFPAY ==
[2018-12-29 16:18] VITALS: BMI 15.7
[2019-01-16 10:54] VITALS: BP 135/89; PULSE 108; RESP 24; TEMP 36; O2SAT 95; BMI 16.5
--- NOTE | 2019-01-16 11:13 | EKG12_ITS ---
Test Reason : ALCOHOL WITHDRAWALS Blood Pressure : / mmHG Vent. Rate : 100 BPM Atrial Rate : 100 BPM P-R Int : 164 ms QRS Dur : 070 ms QT Int : 342 ms P-R-T Axes : 080 086 080 degrees QTc Int : 441 ms Normal sinus rhythm Right atrial enlargement Borderline ECG Confirmed by OUSMANE MENENDEZ, GRUPO ([id number]), photography editor CATHERINE PIERCE ([id number]) on 01/19/2019 1:23:24 PM Referred By: CEE Confirmed By:GRUPO ROMEO MD
--- NOTE | 2019-01-16 11:18 | ED.DCSUM_ITS ---
- ER Visit Summary Date of Service: 01/16/19 Chief Complaint: Alcohol withdrawal History of Present Illness: The patient is a 53 F who presents for alcohol withdrawal and requesting alcohol detox. Patient's last drink was 11 hours ago. Patient states she drank 2 tall boys at that time. She normally can drink a 12 pack a day by herself. She is having vomiting, diarrhea, insomnia and anxiety. She also complains of chills and sweats. She has associated abdominal pain. Patient denies being in detox before. She has history of COPD, heavy tobacco use, alcoholism, and pancreatitis. She denies any history of seizure or hallucinations with withdrawal as she states she avoids withdrawal symptoms. She took Ativan at 4 AM, which she has prescribed for anxiety. She denies any drug use. Physical Examination: Vital signs: afebrile, hemodynamically stable, no hypoxia on room air General: Very thin, well developed, in no distress Skin: warm, moist, no rash, no pallor HEENT: normocephalic and atraumatic; PERRL, EOMI, dry mucous membranes Cardiovascular: Tachycardic rate and rhythm without murmurs, no peripheral edema, 2+ pulses all distal extremities Respiratory: No increased work of breathing, lungs are clear to auscultation bilaterally, no rales, rhonchi or wheezing Abdominal: Abdomen is soft, diffusely tender with normoactive bowel sounds, no guarding or rebound, no masses MSK: Moves all extremities, no deformities, normal strength Neuro: Awake and alert, oriented ?4. No facial droop, sensation and motor function intact and symmetric, no tremulousness noted Test Results: Abnormal Lab Results 01/16/19 01/16/19 01/16/19 11:04 11:08 11:30 WBC 12.2 H RBC 5.20 Hgb 16.4 H Hct 46.0 MCV 88.5 MCH 31.5 MCHC 35.7 RDW 15.0 H RDW Differential 47.9 H Plt Count 314 MPV 9.5 Immature Gran % (Auto) 0.500 Neut % (Auto) 64.2 Lymph % (Auto) 25.4 [place] % (Auto) 7.2 Eos % (Auto) 2.1 Baso % (Auto) 0.6 Absolute Neuts (auto) 7.8 H Absolute Lymphs (auto) 3.09 Total Counted Not Reportable Sodium Potassium Chloride Carbon Dioxide Anion Gap BUN Creatinine Estim Creat Clear Calc Est GFR (MDRD) Af Amer Est GFR (MDRD) Non-Af BUN/Creatinine Ratio Glucose Calcium Magnesium Total Bilirubin AST ALT Alkaline Phosphatase Total Protein Albumin Globulin Albumin/Globulin Ratio Lipase Urine Color Yellow Urine Clarity Clear Urine pH 6.0 Ur Specific [place] 1.010 Urine Protein Negative Urine Glucose (UA) Normal Urine Ketones Negative Urine Occult Blood Negative Urine Nitrite Negative Urine Bilirubin Negative Urine Urobilinogen Normal Ur Leukocyte Esterase Negative Urine RBC 0 SEEN Urine WBC 0 SEEN Ur Squamous Epith Cells 0-5 SEEN Urine Bacteria 0 SEEN Urine Mucus 0 SEEN Urine Opiates Screen NEGATIVE Urine Methadone Screen NEGATIVE Ur Barbiturates Screen NEGATIVE Ur Phencyclidine Scrn NEGATIVE Ur Amphetamines Screen NEGATIVE U Methamphetamin-MDMA NEGATIVE U Benzodiazepines Scrn NEGATIVE Urine Cocaine Screen NEGATIVE U Cannabinoids Screen NEGATIVE Ur Drug Screen Comment Ethyl Alcohol 01/16/19 01/16/19 11:30 11:30 WBC RBC Hgb Hct MCV MCH MCHC RDW RDW Differential Plt Count MPV Immature Gran % (Auto) Neut % (Auto) Lymph % (Auto) [place] % (Auto) Eos % (Auto) Baso % (Auto) Absolute Neuts (auto) Absolute Lymphs (auto) Total Counted Sodium 132 L Potassium 3.9 Chloride 100 Carbon Dioxide 24.0 Anion Gap 8 BUN 2 L Creatinine 0.45 L Estim Creat Clear Calc 94.07 Est GFR (MDRD) Af Amer 186 Est GFR (MDRD) Non-Af 153 BUN/Creatinine Ratio 4.4 L Glucose 84 Calcium 9.5 Magnesium 1.7 Total Bilirubin 0.30 AST 40 H ALT 51 Alkaline Phosphatase 161 H Total Protein 8.5 H Albumin 3.9 Globulin 4.6 H Albumin/Globulin Ratio 0.8 L Lipase 449 H Urine Color Urine Clarity Urine pH Ur Specific [place] Urine Protein Urine Glucose (UA) Urine Ketones Urine Occult Blood Urine Nitrite Urine Bilirubin Urine Urobilinogen Ur Leukocyte Esterase Urine RBC Urine WBC Ur Squamous Epith Cells Urine Bacteria Urine Mucus Urine Opiates Screen Urine Methadone Screen Ur Barbiturates Screen Ur Phencyclidine Scrn Ur Amphetamines Screen U Methamphetamin-MDMA U Benzodiazepines Scrn Urine Cocaine Screen U Cannabinoids Screen Ur Drug Screen Comment Ethyl Alcohol 100.0 Medications Given Discontinued Medications Sodium Chloride () 1,000 mls @ 999 mls/hr IV .Q1H1M ONE Stop: 01/16/19 12:14 Folic Acid 1 mg/ Sodium (Chloride) 50.2 mls @ 200 mls/hr IV X1 ONE Stop: 01/16/19 11:33 Thiamine HCl 100 mg/ Sodium (Chloride) 51 mls @ 200 mls/hr IV X1 ONE Stop: 01/16/19 11:33 Ondansetron HCl (Zofran) 4 mg IV X1 ONE Stop: 01/16/19 11:15 Emergency Department Course and Treatment: Patient presents requesting treatment for alcohol withdrawal and is requesting detox. Her CIWA score is currently 13. Patient recently was admitted for significant electrolyte derangements and pancreatitis, and because of her abdominal tenderness and tachycardia, labs were performed to evaluate for recurrent electrolyte derangements or pancreatitis. Patient was given IV fluids, Zofran for nausea and thiamine and folate. Patient was not given any Ativan so as not to mask any of her withdrawal symptoms. Patient had no significant electrolyte derangements. Lipase was not significantly elevated to indicate pancreatitis. Patient requested something to eat and ate several packs of crackers and drink juices without any difficulty. She denied any nausea at this time. A repeat CIWA score was performed and was 1 at this time. She is actually had improvement from her initial presentation. She did remain mildly tachycardic, consistent with mild alcohol withdrawal, however on subjective exam, her skin was dry, she had no tremors with holding her hand extended, and she was very well-appearing and comfortable, eating snacks and requesting more food. I discussed with patient that at this time she does not meet criteria for admission for [facility] inpatient detox, and we discussed outpatient options. Patient was given a pamphlet for [facility]. Patient was discharged very well-appearing and in no distress with no evidence of significant alcohol withdrawal symptoms. Patient also has no history of seizures from withdrawal or severe symptoms from withdrawal that would be considered a reason for admission. Treatment Plan: [] Disposition: [] Impression: Mild alcohol withdrawal, alcohol abuse This note was generated with [employer] dictation software. It may contain incorrect words, spelling, and punctuation that were not noted in review of the chart farhana or to signing ED Disposition - Plan for ED Patient: Disposition: Home or Assisted Living Instructions: ED Withdrawal Alcohol, ED Alcohol Abuse Referrals: Bernard Galan III, MD [Primary Care Provider] - 1 Day for another exam Additional Instructions: Please follow-up with [facility] at the number on the pamphlet you were provided for further discussion of alcohol detox resources. Return to the emergency department if your symptoms worsen. If you have any worsening of your condition or any new concerning symptoms, please return immediately to the emergency department for another evaluation.
[2019-01-16 11:29] LABS: Amphetamine Urine VISTA NEGATIVE (<1000 ng/mL); Barbiturate Urine VISTA NEGATIVE (< 200 ng/mL); Benzodiazepine Urine VISTA NEGATIVE (< 200 ng/mL); Cocaine Urine VISTA NEGATIVE (< 300 ng/mL); Ecstacy Urine VISTA NEGATIVE (< 500 ng/mL); Methadone Urine VISTA NEGATIVE (< 300 ng/mL); PCP Urine VISTA NEGATIVE (< 25 ng/mL); THC Urine VISTA NEGATIVE (< 50 ng/mL); Vista UDS pH Range 5
[2019-01-16 11:44] LABS: Absolute Lymphocyte Count 3.09 X10^3/ul (0.83-4.51); Absolute Neutrophil Count 7.8 X10^3/uL (2.0-7.7); Basophil# 0.07 X10^3/uL; Basophil% 0.6 % (0-1); Eosinophil# 0.26 X10^3/uL; Eosinophils% 2.1 % (0-5); Hemoglobin 16.4 g/dl (12.0-15.0); Lymphocyte # 3.09 X10^3/ul (4.0); Lymphocyte % 25.4 % (19-41); Mean Corp Hgb Conc 35.7 g/gl (32-36); Mean Corpuscular Hgb 31.5 pg (27.0-32.0); Mean Corpuscular Volume 88.5 fL (81-99); Mean Platelet Vol. 9.5 fl (6.2-12.0); Monocyte# 0.88 X10^3/uL; Monocyte% 7.2 % (0-10); Neutrophil % 64.2 % (47-70); Platelet Count 314 K/mm3 (150-450); RBC Distribution Width SD 47.9 fl (35.1-43.9); White Blood Count 12.2 K/mm3 (4.4-11.0)
[2019-01-16 11:44] LABS: Bacteria 0 SEEN /hpf (None Seen); Mucous, Urine 0 SEEN /hpf (<or=2+); Red Blood Cells-Urine 0 SEEN /hpf (0-5); White Blood Cells 0 SEEN /hpf (0-5)
[2019-01-16 11:45] LABS: POSITIVE COUNT NO; POSITIVE DIFFERENTIAL NO; POSITIVE MORPHOLOGY NO
[2019-01-16 11:50] LABS: Color, Urine Yellow (Yellow); Glucose, Dipstick Normal (Normal); Ketone-Dipstick Negative (Negative); Leukocyte Esterase-Dipstick Negative /ul (Negative); Nitrite-Dipstick Negative (Negative); Occult Blood-Urine Negative /ul (Negative); Protein-Dipstick Negative (Negative); Urine Bilirubin Dipstick Negative (Negative); Urine Clarity Clear (Clear); Urine Urobilinogen Normal (Normal)
[2019-01-16 11:58] LABS: ALB/GLOB Ratio 0.8 RATIO (0.9-2.4); AST(SGOT) 40 U/L (15-37); Alanine Aminotransfer ALT/SGPT 51 U/L (13-56); Albumin, Serum 3.9 g/dL (3.2-5.0); Alkaline Phosphatase 161 U/L (45-117); Anion Gap 8 (5-15); BUN 2 mg/dL (7-18); BUN/Creat Ratio 4.4 RATIO (10-20); Calcium,Total 9.5 mg/dL (8.5-10.1); Chloride 100 mmol/L (98-107); Creatinine, Serum 0.45 mg/dL (0.55-1.02); EST Glomerular Filtration Rate 153 mL/min (>60); Est Glom Filt Rate - Afr Amer 186 mL/min (>60); Estimated Creatinine Clearance 94.07 ml/min; Globulin 4.6 g/dL (2.2-4.2); Glucose 84 mg/dL (74-106); Lipase 449 U/L (73-393); Magnesium 1.7 mg/dL (1.6-2.6); Potassium 3.9 mmol/L (3.5-5.1); Protein, Total 8.5 g/dL (6.4-8.2); Sodium Level 132 mmol/L (136-145)
[2019-01-16 12:00] LABS: Squamous Epithelial Cells - UA 0-5 SEEN /hpf (5-10)
[2019-01-16] MEDS: 0.9% Normal Saline 1,000 ML 999 ML IV (12:35)
[2019-01-16] MEDS: Ondansetron 4 MG/2 ML Vial IV (12:36)
[2019-01-16 13:10] VITALS: BP 104/87; PULSE 114; RESP 18; O2SAT 93
[2019-01-16 14:25] VITALS: BP 135/99; PULSE 113; RESP 20; O2SAT 95
== END 2019-01-16 14:28 | disposition home or self-care (01) ==
PROVIDERS: Emergency Provider Emergency Medicine; Family Provider Family Medicine; PCP Family Medicine
DX: F10.239 Alcohol dependence with withdrawal, unspecified (principal); Y90.9 Presence of alcohol in blood, level not specified; J44.9 Chronic obstructive pulmonary disease, unspecified; Z72.0 Tobacco use
CPT/HCPCS: 80053; 80307; 80320; 81001; 83690; 83735; 85025; 93005; 96361; 96374; 99285; J7030; A4216; G0480; J2405; J3490

== ENCOUNTER 2019-02-01 13:43 | Inpatient (IN) | payer MEDICAID, SELFPAY ==
[2019-02-01] VITALS (7 sets, daily range): BP systolic 84–113; BP diastolic 66–81; PULSE 105–115; RESP 14–20; TEMP 36.4–37.3; O2SAT 92–95; BMI 14.5; BMI 15.4
[2019-02-01 14:30] LABS: Basophil# 0.06 X10^3/uL; Basophil% 0.5 % (0-1); Eosinophil# 0.12 X10^3/uL; Hematocrit 40.2 % (37-47); Hemoglobin 14.1 g/dl (12.0-15.0); Lymphocyte % 23.6 % (19-41); Mean Corp Hgb Conc 35.1 g/gl (32-36); Mean Corpuscular Hgb 30.9 pg (27.0-32.0); Mean Corpuscular Volume 88.2 fL (81-99); Monocyte# 0.79 X10^3/uL; Monocyte% 6.7 % (0-10); Neutrophil # 8.02 X10^3/uL (2.7-7.7); Neutrophil % 67.7 % (47-70); Platelet Count 315 K/mm3 (150-450); RBC Distribution Width CV 14.5 % (11.6-14.6); RBC Distribution Width SD 46.6 fl (35.1-43.9); Red Blood Count 4.56 M/mm3 (4.2-5.4); White Blood Count 11.9 K/mm3 (4.4-11.0)
[2019-02-01 14:31] LABS: POSITIVE COUNT NO; POSITIVE DIFFERENTIAL NO; POSITIVE MORPHOLOGY NO
[2019-02-01 14:41] LABS: ALB/GLOB Ratio 0.7 RATIO (0.9-2.4); AST(SGOT) 42 U/L (15-37); Alanine Aminotransfer ALT/SGPT 35 U/L (13-56); Albumin, Serum 2.9 g/dL (3.2-5.0); Alkaline Phosphatase 173 U/L (45-117); Anion Gap 8 (5-15); BUN 1 mg/dL (7-18); BUN/Creat Ratio 3.1 RATIO (10-20); Chloride 93 mmol/L (98-107); Creatinine, Serum 0.32 mg/dL (0.55-1.02); EST Glomerular Filtration Rate 226 mL/min (>60); Est Glom Filt Rate - Afr Amer 273 mL/min (>60); Estimated Creatinine Clearance 116.64 ml/min; Globulin 4.2 g/dL (2.2-4.2); Glucose 94 mg/dL (74-106); Lipase 189 U/L (73-393); Potassium 4.1 mmol/L (3.5-5.1); Protein, Total 7.1 g/dL (6.4-8.2); Sodium Level 125 mmol/L (136-145)
[2019-02-01] MEDS: 0.9% Normal Saline 1,000 ML 1000 ML IV (14:46)
[2019-02-01] MEDS: Ondansetron 4 MG/2 ML Vial IV (14:46)
[2019-02-01 14:53] LABS: Lactic Acid 1.6 mmol/L (0.4-2.0)
[2019-02-01 15:01] LABS: Mucous, Urine 0 SEEN /hpf (<or=2+); Red Blood Cells-Urine 0 SEEN /hpf (0-5); White Blood Cells 0 SEEN /hpf (0-5)
[2019-02-01 15:18] LABS: Color, Urine Yellow (Yellow); Glucose, Dipstick Normal (Normal); Ketone-Dipstick Negative (Negative); Leukocyte Esterase-Dipstick Negative /ul (Negative); Nitrite-Dipstick Negative (Negative); Occult Blood-Urine Negative /ul (Negative); Protein-Dipstick Negative (Negative); Urine Bilirubin Dipstick Negative (Negative); Urine Clarity Sl. Cloudy (Clear); Urine Urobilinogen Normal (Normal)
[2019-02-01 15:25] LABS: Bacteria 1+ /hpf (None Seen); Squamous Epithelial Cells - UA 0-5 SEEN /hpf (5-10)
--- NOTE | 2019-02-01 16:43 | ED.VISSUMM ---
- ER Visit Summary Date of Service: 02/01/19 Chief Complaint: [Vomiting and diarrhea] History of Present Illness: The patient is a 53 F [presents to the emergency department with complaint of frequent vomiting and diarrhea. Patient states symptoms have been going on for several weeks. Patient also has been drinking today and she states she has had 2 tall boys. She denies any fevers. She denies recent antibiotic usage. She denies any significant abdominal pain. Patient does state that she wants to get help for her alcohol consumption and would like to go through detox potentially. The drug use. She denies feeling suicidal or homicidal. She tells me she is never gone through detox before. Family members stated that patient's been on a heavy alcohol binge over the last 3 days and has been using Remeron.] Physical Examination: [HEENT-PERRLA, EOMI. Cranial nerves II through XII grossly intact. TMs clear. Mucous membranes moist. No adenopathy. Cardiovascular-regular rate and rhythm without murmur or ectopy Lungs-clear to auscultation, chest wall stable without crepitus or subcu emphysema Abdomen-normoactive bowel sounds, soft. Patient has diffuse tenderness on palpation. There is no rebound, rigidity, or perineal signs. Extremities-intact ?4, normal range of motion, normal pulses, atraumatic left elbow-patient has erythema and cellulitis consistent with bursitis. Patient has fullness in fluctuance over the bursa.] Test Results: [CBC with differential obtained showed white count 11.9, hemoglobin 14, hematocrit 40, placed 3.5. Chemistry showed a sodium 125, potassium 4.1, chloride 93, CO2 24, glucose 94, BUN 1 and creatinine 0.32. LFTs unremarkable. Lipase was 189. Urinalysis was normal. Lactate was normal 1.6. Alcohol was 299.] Emergency Department Course and Treatment: [Patient was given normal saline. Patient was ordered Zofran. Stool cultures ordered.] Patient was given Keflex 500 mill grams p.o. Treatment Plan: [Admit for hydration.] Disposition: [Admit] Impression: [Hyponatremia Vomiting and diarrhea Alcohol abuse Left olecranon bursitis/cellulitis] This note was generated with [employer] software. It may contain incorrect words, spelling, and punctuation that were not noted in review of the chart prior to signing ED Disposition - Plan for ED Patient: Referrals: Bernard Galan III, MD [Primary Care Provider] -
--- NOTE | 2019-02-01 16:48 | ED.DCSUM_ITS ---
- ER Visit Summary Date of Service: 02/01/19 Chief Complaint: [Vomiting and diarrhea] History of Present Illness: The patient is a 53 F [presents to the emergency department with complaint of frequent vomiting and diarrhea. Patient states symptoms have been going on for several weeks. Patient also has been drinking today and she states she has had 2 tall boys. She denies any fevers. She denies recent antibiotic usage. She denies any significant abdominal pain. Patient does state that she wants to get help for her alcohol consumption and would like to go through detox potentially. The drug use. She denies feeling suicidal or homicidal. She tells me she is never gone through detox before. Fa olu members stated that patient's been on a heavy alcohol binge over the last 3 days and has been using Remeron.] Physical Examination: [HEENT-PERRLA, EOMI. Cranial nerves II through XII grossly intact. TMs clear. Mucous membranes moist. No adenopathy. Cardiovascular-regular rate and rhythm without murmur or ectopy Lungs-clear to auscultation, chest wall stable without crepitus or subcu emphysema Abdomen-normoactive bowel sounds, soft. Patient has diffuse tenderness on palpation. There is no rebound, rigidity, or perineal signs. Extremities-intact ?4, normal range of motion, normal pulses, atraumatic left elbow-patient has erythema and cellulitis consistent with bursitis. Patient has fullness in fluctuance over the bursa.] Test Results: [CBC with differential obtained showed white count 11.9, hemoglobin 14, hematocrit 40, placed 3.5. Chemistry showed a sodium 125, potassium 4.1, chloride 93, CO2 24, glucose 94, BUN 1 and creatinine 0.32. LFTs unremarkable. Lipase was 189. Urinalysis was normal. Lactate was normal 1.6. Alcohol was 299.] Emergency Department Course and Treatment: [Patient was given normal saline. Patient was ordered Zofran. Stool cultures ordered.] Patient was given Keflex 500 mill grams p.o. Treatment Plan: [Admit for hydration.] Disposition: [Admit] Impression: [Hyponatremia Vomiting and diarrhea Alcohol abuse Left olecranon bursitis/cellulitis] This note was generated with [employer] software. It may contain incorrect words, spelling, and punctuation that were not noted in review of the chart prior to signing ED Disposition - Plan for ED Patient: Referrals: Bernard Galan III, MD [Primary Care Provider] -
--- NOTE | 2019-02-01 17:06 | HP.PCM_ITS ---
Problem List (1) Gastroenteritis Status: Acute (2) Hyponatremia Status: Acute (3) HTN (hypertension) Status: Chronic (4) COPD (chronic obstructive pulmonary disease) Status: Chronic (5) Tobacco abuse Status: Chronic (6) Alcohol abuse Status: Chronic (7) GERD (gastroesophageal reflux disease) Status: Chronic (8) Benign hypertension Status: Chronic History of Present Illness Date of Admission: 02/01/19 Chief Complaint: Nausea vomiting diarrhea The patient is a 53 year old F with a history of alcoholism since being a teenager, history of hypertension, history of alcoholic pancreatitis, history of alcoholic hepatitis, history of nicotine abuse, COPD, hypertension, who presented to the emergency room with complaints of uncontrolled nausea, vomiting, diarrhea. This been going on for the past 3 days. Despite the ongoing nausea and vomiting she continues to drink. She drinks about 7-8 beers per day. Her last beer was around noon to 1:00 today. She is currently intoxicated with blood alcohol level of 299. She is restless in bed. She is eating crackers and able to keep them down. She has some diffuse abdominal pain - lipase is 189. No fevers or chills. She expresses interest in alcohol detox. She understands that she cannot start the detox program until she is in withdrawal and experiencing symptoms. She is agreeable. She was able to be sober for ten years but restarted drinking with emotional trauma. Left elbow is slightly swollen she denies recent trauma, it has been ongoing for 2 weeks. She was given a dose of ancef for this in the ER. Past Medical History Past Medical History (Chronic Problems): Chronic Problems (Last Reviewed 12/29/18 @ 16:11 by Mahamed Fatima DO) Chronic pancreatitis (Chronic) HPV (human papilloma virus) infection (Chronic) Alcoholic hepatitis (Chronic) HTN (hypertension) (Chronic) Anemia (Chronic) COPD (chronic obstructive pulmonary disease) (Chronic) Unintentional weight loss (Chronic) Tobacco abuse (Chronic) Alcohol abuse (Chronic) History of pancreatitis (Chronic) Tobacco use disorder (Chronic) GERD (gastroesophageal reflux disease) (Chronic) Chronic obstructive lung disease (Chronic) Benign hypertension (Chronic) Medical History: Medical History (Last Reviewed 12/29/18 @ 16:11 by Mahamed Fatima DO) Chronic pancreatitis (Chronic) K86.1 HPV (human papilloma virus) infection (Chronic) B97.7 Alcoholic hepatitis (Chronic) K70.10 HTN (hypertension) (Chronic) I10 Anemia (Chronic) D64.9 COPD (chronic obstructive pulmonary disease) (Chronic) J44.9 Unintentional weight loss (Chronic) R63.4 Tobacco abuse (Chronic) Z72.0 Alcohol abuse (Chronic) F10.10 History of pancreatitis (Chronic) Z87.19 Tobacco use disorder (Chronic) F17.200 GERD (gastroesophageal reflux disease) (Chronic) K21.9 Chronic obstructive lung disease (Chronic) J44.9 Benign hypertension (Chronic) I10 Allergies Penicillins Allergy (Verified 02/01/19 13:47) Hives Home Medications: Ambulatory Orders Medication Instructions Recorded Albuterol Inhaler [Ventolin Hfa] 1 - 2 puff INHALATION Q4H PRN PRN 07/28/13 Lisinopril [Zestril] 20 mg PO DAILY 10/29/15 Omeprazole [Prilosec] 20 mg PO DAILY 12/17/15 Lorazepam [Ativan] 0.5 mg PO TID PRN 05/12/16 Amlodipine [Norvasc] 5 mg PO DAILY 02/04/18 Albuterol Aerosols [Ventolin 2.5 mg INHALATION Q6H PRN PRN 02/27/18 Aerosols] Ferrous Sulfate 325 mg PO DAILY@0800 02/27/18 Vilazodone Hydrochloride [Viibryd] 40 mg PO DAILY 10/28/18 Cholecalciferol (Vitamin D3) 2,000 unit PO DAILY 12/29/18 [D3-2000] Loperamide [Imodium] 2 mg PO Q6H PRN PRN 12/30/18 Multivitamins,Therapeutic 1 tablet PO DAILYCM tablet 12/31/18 [Multivitamin] Surgical History: Surgical History (Last Reviewed 12/29/18 @ 16:11 by Mahamed Fatima DO) History of colonoscopy (Resolved) Z98.890 History of appendectomy (Resolved) Z98.890, Z90.49 Surgical History: no surgical history, - - Tubal ligation Psychiatric History: No pertinent psych hx ECHO TECHNOLOGIST History: No pertinent ECHO TECHNOLOGIST history, - - She states she is having postmenopausal hot flashes Lives: Alone Smoking Status: Current every day smoker Tobacco Use: Cigarettes Alcohol: Heavy Drugs: None - *Family History Maternal Family History: Family History (Last Reviewed 12/29/18 @ 16:11 by Mahamed Fatima DO) Mother Diabetes Hypertension Brother Hypertension Sister Cancer History Items: No pertinent history, - Review of Systems Constitutional: Denies: Chills, Fever, Weight Change HEENT: Denies: Head Aches, Sinus Congestion, Sinus Drainage Cardiovascular: Denies: Chest Pain, Palpitations Respiratory: Denies: Cough, Shortness of breath at rest, Sputum production Gastrointestinal: Reports: Abdominal Pain, Diarrhea, Nausea, Vomiting Genitourinary: Denies: Dysuria Musculoskeletal: Denies: Joint Pain, Joint Tenderness Skin: Denies: Rash, Wounds Neurological: Denies: Numbness, Tingling, Focal weakness Psychiatric: Denies: Anxiety, Depression, Homicidal Ideations, Suicidal Ideations Hematologic/ Lymphatic: Denies: Easy Bruising, Easy Bleeding VTE Information - Inpt Only VTE Present on Admission: No VTE Mechan Device Prophylaxis: None VTE Pharm Prophylaxis ordered?: Yes Patient Problems: Active and Suspected Problems (Last Reviewed 12/29/18 @ 16:11 by Mahamed Fatima DO) Gastroenteritis (Acute) - Physical Exam General: Alert, Oriented x3, Cooperative, - - cachectic HEENT: Atraumatic, PERRLA, EOMI, Normocephalic Neck: Supple, No JVD, Negative Carotid Bruits Lungs: Clear to auscultation, Normal air movement Cardiovascular: Regular rate, No murmurs Abdomen: Bowel Sounds Present, Non-Distended, Tender Extremities: No edema, Capillary Refill Less than 3 Seconds Skin: No rashes, No breakdown Musculoskeletal: - - left elbow olecranon bursitis no cellulitic changes Neurological: Cranial nerves II-XII grossly intact Psych/Mental Status: Anxious, Restless, Alert and oriented to time, place, person, mood and affect Vital Signs Temp Pulse Resp BP Pulse Ox 97.5 F L 108 H 17 113/81 H 95 02/01/19 13:45 02/01/19 13:45 02/01/19 14:47 02/01/19 13:45 02/01/19 13:45 Oxygen Delivery Method Room Air Weight: 82 lb Body Mass Index (BMI) 14.5 Laboratory Tests Past 24 Hrs 02/01/19 02/01/19 02/01/19 14:13 14:13 14:15 WBC 11.9 H RBC 4.56 Hgb 14.1 Hct 40.2 MCV 88.2 MCH 30.9 MCHC 35.1 RDW 14.5 RDW Differential 46.6 H Plt Count 315 MPV 9.0 Immature Gran % (Auto) 0.500 Neut % (Auto) 67.7 Lymph % (Auto) 23.6 [place] % (Auto) 6.7 Eos % (Auto) 1.0 Baso % (Auto) 0.5 Absolute Neuts (auto) 8.0 H Absolute Lymphs (auto) 2.80 Total Counted Not Reportable Sodium 125 L Potassium 4.1 Chloride 93 L Carbon Dioxide 24.0 Anion Gap 8 BUN 1 L Creatinine 0.32 L Estim Creat Clear Calc 116.64 Est GFR (MDRD) Af Amer 273 Est GFR (MDRD) Non-Af 226 BUN/Creatinine Ratio 3.1 L Glucose 94 Lactic Acid 1.6 Calcium 8.0 L Total Bilirubin 0.30 AST 42 H ALT 35 Alkaline Phosphatase 173 H Total Protein 7.1 Albumin 2.9 L Globulin 4.2 Albumin/Globulin Ratio 0.7 L Lipase 189 Urine Color Urine Clarity Urine pH Ur Specific [place] Urine Protein Urine Glucose (UA) Urine Ketones Urine Occult Blood Urine Nitrite Urine Bilirubin Urine Urobilinogen Ur Leukocyte Esterase Urine RBC Urine WBC Ur Squamous Epith Cells Urine Bacteria Urine Mucus Ethyl Alcohol 02/01/19 02/01/19 14:53 15:45 WBC RBC Hgb Hct MCV MCH MCHC RDW RDW Differential Plt Count MPV Immature Gran % (Auto) Neut % (Auto) Lymph % (Auto) [place] % (Auto) Eos % (Auto) Baso % (Auto) Absolute Neuts (auto) Absolute Lymphs (auto) Total Counted Sodium Potassium Chloride Carbon Dioxide Anion Gap BUN Creatinine Estim Creat Clear Calc Est GFR (MDRD) Af Amer Est GFR (MDRD) Non-Af BUN/Creatinine Ratio Glucose Lactic Acid Calcium Total Bilirubin AST ALT Alkaline Phosphatase Total Protein Albumin Globulin Albumin/Globulin Ratio Lipase Urine Color Yellow Urine Clarity Sl. Cloudy Urine pH 6.0 Ur Specific [place] 1.010 Urine Protein Negative Urine Glucose (UA) Normal Urine Ketones Negative Urine Occult Blood Negative Urine Nitrite Negative Urine Bilirubin Negative Urine Urobilinogen Normal Ur Leukocyte Esterase Negative Urine RBC 0 SEEN Urine WBC 0 SEEN Ur Squamous Epith Cells 0-5 SEEN Urine Bacteria 1+ Urine Mucus 0 SEEN Ethyl Alcohol 299.0 Assessment/Plan All Active Problems (Last Reviewed 12/29/18 @ 16:11 by Mahamed Fatima DO) COPD exacerbation (Acute) Hyponatremia (Acute) Hypokalemia (Acute) Pancreatitis (Acute) Gastroenteritis (Acute) Pneumonia (Acute) Stage 2 moderate COPD by GOLD classification (Acute) History of colonoscopy (Resolved) History of appendectomy (Resolved) 1. Uncontrolled nausea and vomiting suspect 2/2 acute gastroenteritis - suspect viral. Check enteric panel / cdiff. Supportive care, IV fluids, antiemetics. 2. Alcoholism - intoxicated, alc 299. When withdrawing start withdrawal protocol - librium taper, ativan. Provide Folate, thiamine, multivitamin. 3. Beer potomania - trend, IV NaCl. 4. Hx Alcoholic pancreatitis - lipase neg 5. Hx alcoholic hepatitis - mild LFT elevation 6. Olecranon bursitis - ice pack, tylenol, no abx. 7. COPD - prn aerosols 8. Nicotine abuse - patch 9. Cachexia - dietary eval 10. HTN - stable DVT ppx: heparin DC planning: Case management consult for substance abuse, refer to [facility] when appropriate. PTOT. This patient was seen by Gagan Valencia PA-C under the supervision of Dr. Kahn
[2019-02-01] MEDS: Cephalexin 250 MG Capsule 500 MG PO (17:48)
[2019-02-01] MEDS: hydrOXYzine PAM 25 MG Capsule 50 MG PO (18:22)
[2019-02-01] MEDS: predniSONE 20 MG Tablet PO (18:22)
[2019-02-01] MEDS: 0.9% Normal Saline 1,000 ML 125 ML IV (18:44)
[2019-02-01] MEDS: Heparin Injection (Vial) 5,000 UNIT/ML VIAL 5000 UNIT SC (21:41)
--- NOTE | 2019-02-01 21:49 | NURSING ---
pt asking to walk around hallway, reminded pt that she came in with complaint of frequent diarrhea and a stool sample is needed to be checked for illness. If sample is negative she will be able to walk in david. Assisted pt to walk in her room then returned to bed. bed exit on.
--- NOTE | 2019-02-01 22:04 | NURSING ---
cps notified Dr. barreto pt to have duoneb.
[2019-02-01] MEDS: Ipratropium/Albuterol Sulfate 3 ML AMPUL.NEB INHALATION (22:18)
[2019-02-01] MEDS: 0.9% Normal Saline 1,000 ML 999 ML IV (22:30)
[2019-02-02] VITALS (11 sets, daily range): BP systolic 101–143; BP diastolic 65–94; PULSE 87–117; RESP 16–20; TEMP 36.4–37.3; O2SAT 94–97
[2019-02-02] MEDS: hydrOXYzine PAM 25 MG Capsule 50 MG PO ×4 (00:40→21:10)
[2019-02-02] MEDS: Acetaminophen 325 MG Tablet 650 MG PO (00:44)
[2019-02-02] MEDS: 0.9% NaCl Peripheral Flush Adult/Peds IV (02:24)
[2019-02-02] MEDS: Ondansetron 4 MG/2 ML Vial IV (02:25)
[2019-02-02] MEDS: 0.9% Normal Saline 1,000 ML 125 ML IV (05:16)
[2019-02-02 05:46] LABS: Absolute Neutrophil Count 6.2 X10^3/uL (2.0-7.7); Basophil# 0.03 X10^3/uL; Basophil% 0.3 % (0-1); Eosinophil# 0.01 X10^3/uL; Eosinophils% 0.1 % (0-5); Hematocrit 39.5 % (37-47); Hemoglobin 13.7 g/dl (12.0-15.0); Mean Corp Hgb Conc 34.7 g/gl (32-36); Mean Corpuscular Hgb 30.1 pg (27.0-32.0); Mean Corpuscular Volume 86.8 fL (81-99); Mean Platelet Vol. 9.6 fl (6.2-12.0); Monocyte# 1.04 X10^3/uL; Monocyte% 11.7 % (0-10); Neutrophil # 6.17 X10^3/uL (2.7-7.7); Neutrophil % 69.5 % (47-70); Platelet Count 303 K/mm3 (150-450); RBC Distribution Width CV 14.6 % (11.6-14.6); RBC Distribution Width SD 45.5 fl (35.1-43.9); Red Blood Count 4.55 M/mm3 (4.2-5.4); White Blood Count 8.9 K/mm3 (4.4-11.0)
[2019-02-02 05:50] LABS: POSITIVE COUNT NO; POSITIVE DIFFERENTIAL NO; POSITIVE MORPHOLOGY NO
[2019-02-02 05:57] LABS: BUN 4 mg/dL (7-18); BUN/Creat Ratio 13.3 RATIO (10-20); Calcium,Total 8.6 mg/dL (8.5-10.1); Chloride 102 mmol/L (98-107); EST Glomerular Filtration Rate 244 mL/min (>60); Est Glom Filt Rate - Afr Amer 295 mL/min (>60); Glucose 90 mg/dL (74-106); Potassium 3.4 mmol/L (3.5-5.1); Sodium Level 138 mmol/L (136-145)
[2019-02-02 05:58] LABS: Anion Gap 8 (5-15)
[2019-02-02] MEDS: Dicyclomine 10 MG Capsule 20 MG PO (07:05)
[2019-02-02] MEDS: Methocarbamol 750 MG Tablet PO (07:05)
[2019-02-02] MEDS: Ibuprofen 600 MG Tablet PO (07:05)
[2019-02-02] MEDS: amLODIPine 5 MG Tablet PO (07:05)
[2019-02-02] MEDS: Loperamide 2 MG Capsule PO (07:06)
[2019-02-02] MEDS: chlordiazePOXIDE 25 MG Capsule PO ×3 (07:07→18:05)
[2019-02-02] MEDS: Folic Acid 1 MG Tablet PO (08:59)
[2019-02-02] MEDS: Thiamine Hydrochloride 100 MG Tablet PO (08:59)
[2019-02-02] MEDS: Multivitamins,Therapeutic Tablet 1 TABLET PO (09:00)
[2019-02-02] MEDS: predniSONE 20 MG Tablet PO (09:00)
[2019-02-02] MEDS: Pantoprazole Sodium 20 MG Tablet PO (09:00)
[2019-02-02] MEDS: VILAZODONE HYDROCHLORIDE 10 MG TABLET 40 MG PO (09:00)
[2019-02-02] MEDS: Heparin Injection (Vial) 5,000 UNIT/ML VIAL 5000 UNIT SC (09:06)
[2019-02-02] MEDS: Lisinopril 20 MG Tablet PO (09:20)
--- NOTE | 2019-02-02 12:06 | PCM.PROGNOTE ---
<Gagan Valencia - Last Filed: 02/02/19 12:06> Patient Problems: Active and Suspected Problems (Last Reviewed 12/29/18 @ 16:11 by Mahamed Fatima DO) Gastroenteritis (Acute) Subjective: Pt went into alcohol withdrawal last night reporting anxiety, tremor BL UE, and hot/cold sweats. She was started on withdrawal protocol. She continues to desire placement in the [facility] and expresses desire to remain sober. One episode diarrhea last night. No nausea/vomiting, tolerating PO. No fever/chills. Mild diffuse abdominal pain. - Physical Exam General: Alert, Oriented x3, Cooperative, - - cachexia HEENT: Atraumatic, PERRLA, EOMI, Normocephalic Neck: Supple, No JVD, Negative Carotid Bruits Lungs: Clear to auscultation, Normal air movement Cardiovascular: Regular rate, No murmurs Abdomen: Bowel Sounds Present, Soft, Tender - LLQ Extremities: No edema, Capillary Refill Less than 3 Seconds Skin: No rashes, No breakdown Musculoskeletal: No Tenderness to Palpation of Joints or Extremities Neurological: Cranial nerves II-XII grossly intact Psych/Mental Status: Appropriate, Restless, Alert and oriented to time, place, person, mood and affect Vital Signs Temp Pulse Resp BP Pulse Ox 99.1 F 111 H 16 109/65 96 02/02/19 08:56 02/02/19 09:22 02/02/19 08:56 02/02/19 08:56 02/02/19 08:51 Oxygen Flow Rate (L/min) 1 Oxygen Delivery Method Nasal Cannula Weight: 86 lb 15.91 oz Body Mass Index (BMI) 15.4 Intake and Output for Last 24 Hours 01/31/19 02/01/19 02/02/19 23:59 23:59 23:59 Intake Total 3020 / 3020 Output Total 2150 / 2150 Balance 870 / 870 Microbiology Past 72 Hours 02/02/19 01:57 Enteric Bacteriology - Final Stool 02/02/19 01:57 C. difficile DNA Amplification - Final Stool Laboratory Tests Past 24 Hrs 02/01/19 02/01/19 02/01/19 14:13 14:13 14:15 WBC 11.9 H RBC 4.56 Hgb 14.1 Hct 40.2 MCV 88.2 MCH 30.9 MCHC 35.1 RDW 14.5 RDW Differential 46.6 H Plt Count 315 MPV 9.0 Immature Gran % (Auto) 0.500 Neut % (Auto) 67.7 Lymph % (Auto) 23.6 [place] % (Auto) 6.7 Eos % (Auto) 1.0 Baso % (Auto) 0.5 Absolute Neuts (auto) 8.0 H Absolute Lymphs (auto) 2.80 Total Counted Not Reportable Sodium 125 L Potassium 4.1 Chloride 93 L Carbon Dioxide 24.0 Anion Gap 8 BUN 1 L Creatinine 0.32 L Estim Creat Clear Calc 116.64 Est GFR (MDRD) Af Amer 273 Est GFR (MDRD) Non-Af 226 BUN/Creatinine Ratio 3.1 L Glucose 94 Lactic Acid 1.6 Calcium 8.0 L Total Bilirubin 0.30 AST 42 H ALT 35 Alkaline Phosphatase 173 H Total Protein 7.1 Albumin 2.9 L Globulin 4.2 Albumin/Globulin Ratio 0.7 L Lipase 189 Urine Color Urine Clarity Urine pH Ur Specific [place] Urine Protein Urine Glucose (UA) Urine Ketones Urine Occult Blood Urine Nitrite Urine Bilirubin Urine Urobilinogen Ur Leukocyte Esterase Urine RBC Urine WBC Ur Squamous Epith Cells Urine Bacteria Urine Mucus Ethyl Alcohol 02/01/19 02/01/19 02/02/19 14:53 15:45 05:20 WBC RBC Hgb Hct MCV MCH MCHC RDW RDW Differential Plt Count MPV Immature Gran % (Auto) Neut % (Auto) Lymph % (Auto) [place] % (Auto) Eos % (Auto) Baso % (Auto) Absolute Neuts (auto) Absolute Lymphs (auto) Total Counted Sodium 138 Potassium 3.4 L Chloride 102 Carbon Dioxide 28.0 Anion Gap 8 BUN 4 L Creatinine 0.30 L Estim Creat Clear Calc 132.00 Est GFR (MDRD) Af Amer 295 Est GFR (MDRD) Non-Af 244 BUN/Creatinine Ratio 13.3 Glucose 90 Lactic Acid Calcium 8.6 Total Bilirubin AST ALT Alkaline Phosphatase Total Protein Albumin Globulin Albumin/Globulin Ratio Lipase Urine Color Yellow Urine Clarity Sl. Cloudy Urine pH 6.0 Ur Specific [place] 1.010 Urine Protein Negative Urine Glucose (UA) Normal Urine Ketones Negative Urine Occult Blood Negative Urine Nitrite Negative Urine Bilirubin Negative Urine Urobilinogen Normal Ur Leukocyte Esterase Negative Urine RBC 0 SEEN Urine WBC 0 SEEN Ur Squamous Epith Cells 0-5 SEEN Urine Bacteria 1+ Urine Mucus 0 SEEN Ethyl Alcohol 299.0 02/02/19 05:20 WBC 8.9 RBC 4.55 Hgb 13.7 Hct 39.5 MCV 86.8 MCH 30.1 MCHC 34.7 RDW 14.6 RDW Differential 45.5 H Plt Count 303 MPV 9.6 Immature Gran % (Auto) 0.400 Neut % (Auto) 69.5 Lymph % (Auto) 18.0 L [place] % (Auto) 11.7 H Eos % (Auto) 0.1 Baso % (Auto) 0.3 Absolute Neuts (auto) 6.2 Absolute Lymphs (auto) 1.60 Total Counted Not Reportable Sodium Potassium Chloride Carbon Dioxide Anion Gap BUN Creatinine Estim Creat Clear Calc Est GFR (MDRD) Af Amer Est GFR (MDRD) Non-Af BUN/Creatinine Ratio Glucose Lactic Acid Calcium Total Bilirubin AST ALT Alkaline Phosphatase Total Protein Albumin Globulin Albumin/Globulin Ratio Lipase Urine Color Urine Clarity Urine pH Ur Specific [place] Urine Protein Urine Glucose (UA) Urine Ketones Urine Occult Blood Urine Nitrite Urine Bilirubin Urine Urobilinogen Ur Leukocyte Esterase Urine RBC Urine WBC Ur Squamous Epith Cells Urine Bacteria Urine Mucus Ethyl Alcohol Medical Necessity - Tobacco Use Smoking Status: Current every day smoker Tobacco Use: Cigarettes Assessment/Plan All Active Problems (Last Reviewed 12/29/18 @ 16:11 by Mahamed Fatima DO) COPD exacerbation (Acute) Hyponatremia (Acute) Hypokalemia (Acute) Pancreatitis (Acute) Gastroenteritis (Acute) Pneumonia (Acute) Stage 2 moderate COPD by GOLD classification (Acute) History of colonoscopy (Resolved) History of appendectomy (Resolved) 1. Uncontrolled nausea and vomiting suspect 2/2 acute gastroenteritis - suspect viral. Resolving. Replace K+. C diff check negative. Enteric panel pending. Supportive care, IV fluids, antiemetics. -pt notes hemorrhoids started bleeding mildly, stop anticoagulation 2. Alcoholism with acute withdrawal- withdrawal protocol - librium taper, ativan. Provide Folate, thiamine, multivitamin. Symptoms include tremor, anxiety, hot flashes 3. Beer potomania - resolved 4. Hx Alcoholic pancreatitis - lipase neg 5. Hx alcoholic hepatitis - mild LFT elevation 6. Olecranon bursitis - ice pack, tylenol, no abx, steroids. 7. COPD - prn aerosols 8. Nicotine abuse - patch 9. Cachexia - dietary eval 10. HTN - stable DVT ppx: heparin stopped due to hemorrhoidal bleeding DC planning: Case management consult for substance abuse, refer to [facility] when appropriate. PTOT. This patient was seen by Gagan Valencia PA-C under the supervision of Dr. Bonilla <Anastacia Bonilla - Last Filed: 02/02/19 14:07> - Physical Exam Vital Signs Temp Pulse Resp BP Pulse Ox 98.7 F 90 16 101/72 95 02/02/19 13:40 02/02/19 13:40 02/02/19 13:40 02/02/19 13:40 02/02/19 13:40 Oxygen Flow Rate (L/min) 1 Oxygen Delivery Method Room Air Weight: 86 lb 15.91 oz Body Mass Index (BMI) 15.4 Intake and Output for Last 24 Hours 01/31/19 02/01/19 02/02/19 23:59 23:59 23:59 Intake Total 3020 / 3020 Output Total 2150 / 2150 Balance 870 / 870 Microbiology Past 72 Hours 02/02/19 01:57 Enteric Bacteriology - Final Stool 02/02/19 01:57 C. difficile DNA Amplification - Final Stool Laboratory Tests Past 24 Hrs 02/01/19 02/01/19 02/01/19 14:13 14:13 14:15 WBC 11.9 H RBC 4.56 Hgb 14.1 Hct 40.2 MCV 88.2 MCH 30.9 MCHC 35.1 RDW 14.5 RDW Differential 46.6 H Plt Count 315 MPV 9.0 Immature Gran % (Auto) 0.500 Neut % (Auto) 67.7 Lymph % (Auto) 23.6 [place] % (Auto) 6.7 Eos % (Auto) 1.0 Baso % (Auto) 0.5 Absolute Neuts (auto) 8.0 H Absolute Lymphs (auto) 2.80 Total Counted Not Reportable Sodium 125 L Potassium 4.1 Chloride 93 L Carbon Dioxide 24.0 Anion Gap 8 BUN 1 L Creatinine 0.32 L Estim Creat Clear Calc 116.64 Est GFR (MDRD) Af Amer 273 Est GFR (MDRD) Non-Af 226 BUN/Creatinine Ratio 3.1 L Glucose 94 Lactic Acid 1.6 Calcium 8.0 L Total Bilirubin 0.30 AST 42 H ALT 35 Alkaline Phosphatase 173 H Total Protein 7.1 Albumin 2.9 L Globulin 4.2 Albumin/Globulin Ratio 0.7 L Lipase 189 Urine Color Urine Clarity Urine pH Ur Specific [place] Urine Protein Urine Glucose (UA) Urine Ketones Urine Occult Blood Urine Nitrite Urine Bilirubin Urine Urobilinogen Ur Leukocyte Esterase Urine RBC Urine WBC Ur Squamous Epith Cells Urine Bacteria Urine Mucus Ethyl Alcohol 02/01/19 02/01/19 02/02/19 14:53 15:45 05:20 WBC RBC Hgb Hct MCV MCH MCHC RDW RDW Differential Plt Count MPV Immature Gran % (Auto) Neut % (Auto) Lymph % (Auto) [place] % (Auto) Eos % (Auto) Baso % (Auto) Absolute Neuts (auto) Absolute Lymphs (auto) Total Counted Sodium 138 Potassium 3.4 L Chloride 102 Carbon Dioxide 28.0 Anion Gap 8 BUN 4 L Creatinine 0.30 L Estim Creat Clear Calc 132.00 Est GFR (MDRD) Af Amer 295 Est GFR (MDRD) Non-Af 244 BUN/Creatinine Ratio 13.3 Glucose 90 Lactic Acid Calcium 8.6 Total Bilirubin AST ALT Alkaline Phosphatase Total Protein Albumin Globulin Albumin/Globulin Ratio Lipase Urine Color Yellow Urine Clarity Sl. Cloudy Urine pH 6.0 Ur Specific [place] 1.010 Urine Protein Negative Urine Glucose (UA) Normal Urine Ketones Negative Urine Occult Blood Negative Urine Nitrite Negative Urine Bilirubin Negative Urine Urobilinogen Normal Ur Leukocyte Esterase Negative Urine RBC 0 SEEN Urine WBC 0 SEEN Ur Squamous Epith Cells 0-5 SEEN Urine Bacteria 1+ Urine Mucus 0 SEEN Ethyl Alcohol 299.0 02/02/19 05:20 WBC 8.9 RBC 4.55 Hgb 13.7 Hct 39.5 MCV 86.8 MCH 30.1 MCHC 34.7 RDW 14.6 RDW Differential 45.5 H Plt Count 303 MPV 9.6 Immature Gran % (Auto) 0.400 Neut % (Auto) 69.5 Lymph % (Auto) 18.0 L [place] % (Auto) 11.7 H Eos % (Auto) 0.1 Baso % (Auto) 0.3 Absolute Neuts (auto) 6.2 Absolute Lymphs (auto) 1.60 Total Counted Not Reportable Sodium Potassium Chloride Carbon Dioxide Anion Gap BUN Creatinine Estim Creat Clear Calc Est GFR (MDRD) Af Amer Est GFR (MDRD) Non-Af BUN/Creatinine Ratio Glucose Lactic Acid Calcium Total Bilirubin AST ALT Alkaline Phosphatase Total Protein Albumin Globulin Albumin/Globulin Ratio Lipase Urine Color Urine Clarity Urine pH Ur Specific [place] Urine Protein Urine Glucose (UA) Urine Ketones Urine Occult Blood Urine Nitrite Urine Bilirubin Urine Urobilinogen Ur Leukocyte Esterase Urine RBC Urine WBC Ur Squamous Epith Cells Urine Bacteria Urine Mucus Ethyl Alcohol Assessment/Plan Patient seen by Gagan Valencia PA-C under my supervision Patient was admitted with a complaint of nausea and vomiting. She is also a known alcoholic and was in acute withdrawal. She is being managed for acute gastroenteritis and alcohol withdrawal. Patient seen and examined; nausea and vomiting is getting better. She denies any fever, chills, abdominal pain or diarrhea. Review of systems is otherwise negative. Labs and vitals reviewed. o/e: Vital Signs Height 5 ft 2.99 in Weight: 86 lb 15.91 oz Weight in Pounds 87.0 lbs Pulse Ox 95 Temperature 98.7 F Pulse Rate 90 Respiratory Rate 16 Blood Pressure 101/72 Blood Pressure Position Semi-Fowlers General: Alert, Oriented x3, Cooperative, looks much older than stated age HEENT: Atraumatic, PERRLA, EOMI, Normocephalic Neck: Supple, No JVD, Negative Carotid Bruits Lungs: Clear to auscultation, Normal air movement Cardiovascular: Regular rate, No murmurs Abdomen: Bowel Sounds Present, Soft, minimal left lower quadrant tenderness, no guarding or rebound tenderness Extremities: No edema, Capillary Refill Less than 3 Seconds Skin: No rashes, No breakdown Musculoskeletal: No Tenderness to Palpation of Joints or Extremities Neurological: Cranial nerves II-XII grossly intact Psych/Mental Status: Appropriate, Restless, Alert and oriented to time, place, person, mood and affect Plan is to continue alcohol detox with Librium. She was hyponatremic on admission with sodium being 125 but this is not resolved. Potassium is 3.4 today. We will replace and monitor. Patient wishes to have outpatient rehab meetings when she is discharged. Rest of management as per Gagan Valencia PA-C-'s note which I reviewed and endorsed. Code Visit Inpatient E&M: 32867 Subs Hosp L2
[2019-02-02] MEDS: Ipratropium/Albuterol Sulfate 3 ML AMPUL.NEB INHALATION (12:45)
--- NOTE | 2019-02-02 17:36 | CHAPLAIN ---
Type of Pastoral Visit _x__ Initial Visit ___ Follow-up Visit ___ On-call Visit ___ General Patient Visit ___ Spiritual Assessment ___ Family Conference ___ Bereavement ___ Rapid Response ___ Code Blue ___ Other (describe below) Pastoral Care Referral From _x__ Patient ___ Family ___ Nurse ___ Physician ___ Snowboard Instructor ___ Functional Consultant ___ Other (describe below) Sacrament/Intervention _x__ Active listening ___ Anointing ___ Catholic ___ Bereavement ___ Communion ___ Swapna exploration ___ _x__ Life review _x__ Prayer ___ Reconciliation ___ Sacrament of Sick _x__ Supportive presence ___ Wedding ___ Other (describe below) Pastoral Comments
[2019-02-03] VITALS (11 sets, daily range): BP systolic 100–140; BP diastolic 74–85; PULSE 79–110; RESP 16–20; TEMP 36.4–37.2; O2SAT 92–97
[2019-02-03] MEDS: chlordiazePOXIDE 25 MG Capsule PO ×3 (00:15→16:24)
[2019-02-03] MEDS: hydrOXYzine PAM 25 MG Capsule 50 MG PO ×3 (04:07→21:40)
[2019-02-03] MEDS: Ipratropium/Albuterol Sulfate 3 ML AMPUL.NEB INHALATION ×2 (04:19→15:20)
[2019-02-03 06:05] LABS: Anion Gap 6 (5-15); BUN 11 mg/dL (7-18); Calcium,Total 9.2 mg/dL (8.5-10.1); Chloride 101 mmol/L (98-107); Creatinine, Serum 0.39 mg/dL (0.55-1.02); EST Glomerular Filtration Rate 179 mL/min (>60); Est Glom Filt Rate - Afr Amer 217 mL/min (>60); Estimated Creatinine Clearance 101.53 ml/min; Glucose 93 mg/dL (74-106); Sodium Level 139 mmol/L (136-145)
[2019-02-03] MEDS: Folic Acid 1 MG Tablet PO (08:04)
[2019-02-03] MEDS: Thiamine Hydrochloride 100 MG Tablet PO (08:04)
[2019-02-03] MEDS: Multivitamins,Therapeutic Tablet 1 TABLET PO (08:04)
[2019-02-03] MEDS: amLODIPine 5 MG Tablet PO (08:04)
[2019-02-03] MEDS: predniSONE 20 MG Tablet PO (08:04)
[2019-02-03] MEDS: Pantoprazole Sodium 20 MG Tablet PO (08:07)
[2019-02-03] MEDS: VILAZODONE HYDROCHLORIDE 10 MG TABLET 40 MG PO (08:08)
[2019-02-03] MEDS: Lisinopril 20 MG Tablet PO (08:08)
--- NOTE | 2019-02-03 10:58 | CASEMGMT ---
Social Work Note Pt signed papers for [facility] program. [facility] following. 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
--- NOTE | 2019-02-03 13:25 | PCM.PROGNOTE ---
<Brandi Walton - Last Filed: 02/03/19 13:36> Patient Problems: Active and Suspected Problems (Last Reviewed 12/29/18 @ 16:11 by Mahamed Fatima DO) Gastroenteritis (Acute) Subjective: Patient seen and examined. Reports her withdrawal symptoms have improved. Complains of generalized tiredness and fatigue. No further nausea, vomiting, diarrhea. - Physical Exam General: Alert, Oriented x3, Cooperative, - - Appears older than stated age. HEENT: Atraumatic, PERRLA, EOMI, Normocephalic Neck: Supple, No JVD, Negative Carotid Bruits Lungs: Clear to auscultation, Normal air movement Cardiovascular: Regular rate, Regular Rhythm, Normal S1, Normal S2, No murmurs Abdomen: Bowel Sounds Present, Soft, Non Tender, Non-Distended Extremities: No clubbing, No cyanosis, No edema, Capillary Refill Less than 3 Seconds Skin: No rashes, No breakdown Musculoskeletal: No Tenderness to Palpation of Joints or Extremities, Cachexia Neurological: Cranial nerves II-XII grossly intact, Neuro grossly intact Psych/Mental Status: Normal Affect, Appropriate Vital Signs Temp Pulse Resp BP Pulse Ox 98.7 F 91 20 H 100/74 97 02/03/19 12:47 02/03/19 12:47 02/03/19 12:47 02/03/19 12:47 02/03/19 12:47 Oxygen Flow Rate (L/min) 2 Oxygen Delivery Method Room Air Weight: 86 lb 15.91 oz Body Mass Index (BMI) 15.4 Intake and Output for Last 24 Hours 02/01/19 02/02/19 02/03/19 23:59 23:59 23:59 Intake Total 3020 / 3020 500 / 500 Output Total 2150 / 2150 Balance 870 / 870 500 / 500 Microbiology Past 72 Hours 02/02/19 01:57 Enteric Bacteriology - Final Stool 02/02/19 01:57 C. difficile DNA Amplification - Final Stool Laboratory Tests Past 24 Hrs 02/03/19 05:32 Sodium 139 Potassium 4.0 Chloride 101 Carbon Dioxide 32.0 Anion Gap 6 BUN 11 Creatinine 0.39 L Estim Creat Clear Calc 101.53 Est GFR (MDRD) Af Amer 217 Est GFR (MDRD) Non-Af 179 BUN/Creatinine Ratio 28.0 H Glucose 93 Calcium 9.2 Medical Necessity - Tobacco Use Smoking Status: Current every day smoker Tobacco Use: Cigarettes Assessment/Plan All Active Problems (Last Reviewed 12/29/18 @ 16:11 by Mahamed Fatima DO) COPD exacerbation (Acute) Hyponatremia (Acute) Hypokalemia (Acute) Pancreatitis (Acute) Gastroenteritis (Acute) Pneumonia (Acute) Stage 2 moderate COPD by GOLD classification (Acute) History of colonoscopy (Resolved) History of appendectomy (Resolved) 1. Acute alcohol withdrawal, chronic alcohol use-Librium taper, folate, thiamine, multivitamin supplementation. [facility] protocol. 2. Beer protomania- resolved. 3. N/V/D- resolved. Suspect acute viral gastroenteritis. Enteric pathogen stool panel negative. 4. History of alcoholic pancreatitis 5. History of alcoholic hepatitis-stable. 6. Olecranon bursitis-PRN Tylenol, ice. Outpatient follow-up with ortho. 7. Tobacco dependence-encourage smoking cessation. 8. Chronic COPD-as needed albuterol aerosol. 9. Hypertension-stable, continue home amlodipine, lisinopril regimen. 10. GERD-continue PPI. 11. Severe protein calorie malnutrition-nutrition consult. DVT prophylaxis-SCDs This patient was seen by CARMEN Stacy under the supervision of Dr. Bonilla. <Anastacia Bonilla - Last Filed: 02/03/19 15:05> - Physical Exam Vital Signs Temp Pulse Resp BP Pulse Ox 98.7 F 91 20 H 100/74 97 02/03/19 12:47 02/03/19 12:47 02/03/19 12:47 02/03/19 12:47 02/03/19 12:47 Oxygen Flow Rate (L/min) 2 Oxygen Delivery Method Room Air Weight: 86 lb 15.91 oz Body Mass Index (BMI) 15.4 Intake and Output for Last 24 Hours 02/01/19 02/02/19 02/03/19 23:59 23:59 23:59 Intake Total 3020 / 3020 500 / 500 Output Total 2150 / 2150 Balance 870 / 870 500 / 500 Microbiology Past 72 Hours 02/02/19 01:57 Enteric Bacteriology - Final Stool 02/02/19 01:57 C. difficile DNA Amplification - Final Stool Laboratory Tests Past 24 Hrs 02/03/19 05:32 Sodium 139 Potassium 4.0 Chloride 101 Carbon Dioxide 32.0 Anion Gap 6 BUN 11 Creatinine 0.39 L Estim Creat Clear Calc 101.53 Est GFR (MDRD) Af Amer 217 Est GFR (MDRD) Non-Af 179 BUN/Creatinine Ratio 28.0 H Glucose 93 Calcium 9.2 Assessment/Plan Patient seen by Brandi MORALES under my supervision Patient seen and examined this morning. Nausea and vomiting have resolved, and diarrhea has also largely resolved. She has no other complaints and review of systems is otherwise negative. Labs and vitals reviewed. o/e: Vital Signs Height 5 ft 2.99 in Weight: 86 lb 15.91 oz Weight in Pounds 87.0 lbs Pulse Ox 97 Temperature 98.7 F Pulse Rate 91 Respiratory Rate 20 Blood Pressure 100/74 Blood Pressure Position Semi-Fowlers General: Alert, Oriented x3, Cooperative, HEENT: Atraumatic, PERRLA, EOMI, Normocephalic Neck: Supple, No JVD, Negative Carotid Bruits Lungs: Clear to auscultation, Normal air movement Cardiovascular: Regular rate, No murmurs Abdomen: Bowel Sounds Present, non tender. Extremities: No edema, Capillary Refill Less than 3 Seconds Skin: No rashes, No breakdown Musculoskeletal: No Tenderness to Palpation of Joints or Extremities Neurological: Cranial nerves II-XII grossly intact Psych/Mental Status: Appropriate, Restless, Alert and oriented to time, place, person, mood and affect Plan is to continue alcohol detox with Librium. Monitor CIWA score. Rest of management as per Brandi MORALES's note, which I reviewed and endorsed. Code Visit Inpatient E&M: 39575 Subs Hosp L2
[2019-02-03] MEDS: Methocarbamol 750 MG Tablet PO (16:24)
[2019-02-04] VITALS (9 sets, daily range): BP systolic 93–125; BP diastolic 65–83; PULSE 68–113; RESP 17–20; TEMP 36.4–36.8; O2SAT 93–98
[2019-02-04] MEDS: chlordiazePOXIDE 25 MG Capsule PO ×3 (01:00→20:36)
[2019-02-04] MEDS: Ipratropium/Albuterol Sulfate 3 ML AMPUL.NEB INHALATION ×3 (07:06→19:28)
[2019-02-04] MEDS: Dicyclomine 10 MG Capsule 20 MG PO ×2 (08:21→15:59)
[2019-02-04] MEDS: Methocarbamol 750 MG Tablet PO (08:21)
[2019-02-04] MEDS: Bisacodyl 5 MG Tablet 10 MG PO (08:22)
[2019-02-04] MEDS: Multivitamins,Therapeutic Tablet 1 TABLET PO (08:25)
[2019-02-04] MEDS: predniSONE 20 MG Tablet PO (08:25)
[2019-02-04] MEDS: Thiamine Hydrochloride 100 MG Tablet PO (08:25)
[2019-02-04] MEDS: Folic Acid 1 MG Tablet PO (08:25)
[2019-02-04] MEDS: Pantoprazole Sodium 20 MG Tablet PO (09:39)
[2019-02-04] MEDS: VILAZODONE HYDROCHLORIDE 10 MG TABLET 40 MG PO (09:40)
[2019-02-04] MEDS: Lisinopril 20 MG Tablet PO (12:07)
[2019-02-04] MEDS: amLODIPine 5 MG Tablet PO (12:07)
--- NOTE | 2019-02-04 12:28 | PCM.PROGNOTE ---
Patient Problems: Active and Suspected Problems (Last Reviewed 12/29/18 @ 16:11 by Mahamed Fatima DO) Gastroenteritis (Acute) Subjective: Patient seen and examined. Complains of constipation. Denies other current complaints. Plan for discharge tomorrow following completion of Librium taper. - Physical Exam General: Alert, Oriented x3, Cooperative, - - Appears older than stated age. HEENT: Atraumatic, PERRLA, EOMI, Normocephalic Neck: Supple, No JVD, Negative Carotid Bruits Lungs: Clear to auscultation, Normal air movement Cardiovascular: Regular rate, Regular Rhythm, Normal S1, Normal S2, No murmurs Abdomen: Bowel Sounds Present, Soft, Non Tender, Non-Distended Extremities: No clubbing, No cyanosis, No edema, Capillary Refill Less than 3 Seconds Skin: No rashes, No breakdown Musculoskeletal: No Tenderness to Palpation of Joints or Extremities Neurological: Cranial nerves II-XII grossly intact, Neuro grossly intact Psych/Mental Status: Normal Affect, Appropriate Vital Signs Temp Pulse Resp BP Pulse Ox 98.3 F 113 H 20 H 125/83 H 98 02/04/19 09:33 02/04/19 12:08 02/04/19 09:33 02/04/19 12:08 02/04/19 09:33 Oxygen Flow Rate (L/min) 2 Oxygen Delivery Method Room Air Weight: 86 lb 15.91 oz Body Mass Index (BMI) 15.4 Intake and Output for Last 24 Hours 02/02/19 02/03/19 02/04/19 23:59 23:59 23:59 Intake Total 3020 / 3020 500 / 500 Output Total 2150 / 2150 Balance 870 / 870 500 / 500 Microbiology Past 72 Hours 02/02/19 01:57 Enteric Bacteriology - Final Stool 02/02/19 01:57 C. difficile DNA Amplification - Final Stool Medical Necessity - Tobacco Use Smoking Status: Current every day smoker Tobacco Use: Cigarettes Assessment/Plan All Active Problems (Last Reviewed 12/29/18 @ 16:11 by Mahamed Fatima DO) COPD exacerbation (Acute) Hyponatremia (Acute) Hypokalemia (Acute) Pancreatitis (Acute) Gastroenteritis (Acute) Pneumonia (Acute) Stage 2 moderate COPD by GOLD classification (Acute) History of colonoscopy (Resolved) History of appendectomy (Resolved) 1. Acute alcohol withdrawal, chronic alcohol use-Librium taper, folate, thiamine, multivitamin supplementation. [facility] protocol. 2. Beer protomania- resolved. 3. N/V/D- resolved. Suspect acute viral gastroenteritis. Enteric pathogen stool panel negative. Now complains of constipation. Requesting enema. 4. History of alcoholic pancreatitis 5. History of alcoholic hepatitis-stable. 6. Olecranon bursitis-PRN Tylenol, ice. Outpatient follow-up with ortho. 7. Tobacco dependence-encourage smoking cessation. 8. Chronic COPD-as needed albuterol aerosol. 9. Hypertension-stable, continue home amlodipine, lisinopril regimen. 10. GERD-continue PPI. 11. Severe protein calorie malnutrition-nutrition consult. DVT prophylaxis-Not indicated, low risk. Discharge planning: Plan for discharge tomorrow following [facility] protocol, Librium taper completion. This patient was seen by CARMEN Stacy under the supervision of Dr. Fatima.
--- NOTE | 2019-02-04 13:16 | NEWVISION ---
Patient has follow up appointment with her current [facility] at 11:10am. Patient was also provided information for [facility] per her request for Vivitrol. Patient did not want appointment to be scheduled at this time.
--- NOTE | 2019-02-04 14:33 | PCM.PN.HOSP ---
Patient Problems: Active and Suspected Problems (Last Reviewed 12/29/18 @ 16:11 by Mahamed Fatima DO) Gastroenteritis (Acute) Subjective: No nausea nor vomiting. Tolerating PO. Tremulousness resolved. Vitals/I&O's: Vital Signs Temp Pulse Resp BP Pulse Ox 36.8 C 89 18 125/83 H 97 02/04/19 09:33 02/04/19 13:30 02/04/19 13:30 02/04/19 12:08 02/04/19 13:30 Oxygen Flow Rate (L/min) 2 Oxygen Delivery Method Room Air Weight: 39.46 kg Body Mass Index (BMI) 15.4 Intake and Output for Last 24 Hours 02/02/19 02/03/19 02/04/19 23:59 23:59 23:59 Intake Total 3020 / 3020 500 / 500 Output Total 2150 / 2150 Balance 870 / 870 500 / 500 General: Alert, No apparent distress HEENT: Atraumatic, Normocephalic Oral: Moist Mucosa, No Gingival or Mucosal Lesions/ Ulcerations Neck: No Nodes, Thyroid Normal Size and Texture Lungs: Clear to auscultation, Normal air movement, No rhonchi, No wheeze Cardiovascular: Regular rate, Regular Rhythm, Normal S1, Normal S2, No murmurs Abdomen: Bowel Sounds Present, Soft, Non Tender, Non-Distended, No Hepato-splenomegaly Extremities: No edema, No Calf Tenderness Skin: No rashes, No breakdown Musculoskeletal: Cachexia Psych/Mental Status: Normal Affect, Appropriate Microbiology Past 72 Hours 02/02/19 01:57 Stool Enteric Bacteriology - Final 02/02/19 01:57 Stool C. difficile DNA Amplification - Final Current Medications Acetaminophen (Tylenol) 650 mg PO Q6H PRN PRN PRN Reason: Mild Pain (1-3)/Temp > 100.7 F Last Admin: 02/02/19 00:44 Dose: 650 mg Al Hydroxide/Mg Hydroxide (Mylanta Ii) 30 ml PO Q6H PRN PRN PRN Reason: dyspesia Albuterol Sulfate (Ventolin Aerosols) 2.5 mg INHALATION Q6H PRN PRN PRN Reason: SOB &/OR WHEEZING Albuterol/Ipratropium (Duoneb) 3 ml INHALATION Q6HWA.RT DACIA Last Admin: 02/04/19 13:30 Dose: 3 ml Amlodipine Besylate (Norvasc) 5 mg PO DAILY [facility] Last Admin: 02/04/19 12:07 Dose: 5 mg Bisacodyl (Dulcolax) 10 mg RECTAL DAILY PRN PRN Reason: Constipation Bisacodyl (Dulcolax) 10 mg PO DAILY PRN PRN Reason: Constipation Last Admin: 02/04/19 08:22 Dose: 10 mg Chlordiazepoxide (Librium) 25 mg PO Q12H DACIA; Taper Stop: 02/05/19 08:59 Last Admin: 02/04/19 09:39 Dose: 25 mg Dicyclomine HCl (Bentyl) 20 mg PO Q6H PRN PRN PRN Reason: abdominal discomfort Last Admin: 02/04/19 08:21 Dose: 20 mg Hydralazine HCl (Apresoline Iv) 10 mg IV Q4H PRN PRN PRN Reason: SBP > 160 Hydroxyzine Pamoate (Vistaril Pamoate Capsule) 50 mg PO 4X/DAY PRN PRN PRN Reason: ANXIETY/INSOMNIA Last Admin: 02/03/19 21:40 Dose: 50 mg Lisinopril (Zestril) 20 mg PO DAILY [facility] Last Admin: 02/04/19 12:07 Dose: 20 mg Loperamide HCl (Imodium) 2 - 4 mg PO UD PRN PRN Reason: LOOSE STOOLS Last Admin: 02/02/19 07:06 Dose: 2 mg Lorazepam (Ativan) 1 mg IV Q4H PRN PRN PRN Reason: Severe Anxiety Lorazepam (Ativan) 2 mg IV X1 PRN PRN Reason: Seizure Methocarbamol (Methocarbamol) 750 mg PO Q6H PRN PRN PRN Reason: Muscle Aches Last Admin: 02/04/19 08:21 Dose: 750 mg Multivitamins (Multivitamin) 1 tablet PO DAILYCM [facility] Last Admin: 02/04/19 08:25 Dose: 1 tablet Nicotine (Nicoderm Cq (Pbkc)) 21 mg TRANSDERM. DAILY [facility] Last Admin: 02/04/19 09:49 Dose: 21 mg Nutritional Formula (Lactose Free) (Ensure Enlive) 120 ml PO 4X/DAY [facility] Last Admin: 02/04/19 09:49 Dose: 120 ml Ondansetron HCl (Zofran) 4 mg IV Q6H PRN PRN PRN Reason: NAUSEA/VOMITING Last Admin: 02/02/19 02:25 Dose: 4 mg Ondansetron HCl (Zofran Odt) 4 mg PO Q6H PRN PRN PRN Reason: NAUSEA Pantoprazole Sodium (Protonix) 20 mg PO DAILY [facility] Last Admin: 02/04/19 09:39 Dose: 20 mg Prednisone () 20 mg PO DAILY@0800 [facility] Last Admin: 02/04/19 08:25 Dose: 20 mg Senna (Senokot) 1 tablet PO QHS PRN PRN Reason: Constipation Sodium Chloride () 5 - 15 ml IV UD PRN PRN Reason: SALINE FLUSH Last Admin: 02/02/19 02:24 Dose: 10 ml Vilazodone HCl (Viibryd) 40 mg PO DAILY [facility] Last Admin: 02/04/19 09:40 Dose: 40 mg Medical Necessity - Tobacco Use Smoking Status: Current every day smoker Tobacco Use: Cigarettes Assessment/Plan All Active Problems (Last Reviewed 12/29/18 @ 16:11 by Mahamed Fatima DO) COPD exacerbation (Acute) Hyponatremia (Acute) Hypokalemia (Acute) Pancreatitis (Acute) Gastroenteritis (Acute) Pneumonia (Acute) Stage 2 moderate COPD by GOLD classification (Acute) History of colonoscopy (Resolved) History of appendectomy (Resolved) 1. acute alcohol withdrawal improving last drink was 5/7 patient to complete Librium taper on the . continue multivitamin [facility] to facilitate outpatient programs. 2. Possible gastroenteritis resolved 3. hyponatremia resolved likely d/t beer potomania 4. VTE prophylaxis not indicated ambulation Code Visit Inpatient E&M: 79024 Subs Hosp L2
--- NOTE | 2019-02-04 14:37 | PN_ITS ---
Patient Problems: Active and Suspected Problems (Last Reviewed 12/29/18 @ 16:11 by Mahamed Fatima DO) Gastroenteritis (Acute) Subjective: No nausea nor vomiting. Tolerating PO. Tremulousness resolved. Vitals/I&O's: Vital Signs Temp Pulse Resp BP Pulse Ox 36.8 C 89 18 125/83 H 97 02/04/19 09:33 02/04/19 13:30 02/04/19 13:30 02/04/19 12:08 02/04/19 13:30 Oxygen Flow Rate (L/min) 2 Oxygen Delivery Method Room Air Weight: 39.46 kg Body Mass Index (BMI) 15.4 Intake and Output for Last 24 Hours 02/02/19 02/03/19 02/04/19 23:59 23:59 23:59 Intake Total 3020 / 3020 500 / 500 Output Total 2150 / 2150 Balance 870 / 870 500 / 500 General: Alert, No apparent distress HEENT: Atraumatic, Normocephalic Oral: Moist Mucosa, No Gingival or Mucosal Lesions/ Ulcerations Neck: No Nodes, Thyroid Normal Size and Texture Lungs: Clear to auscultation, Normal air movement, No rhonchi, No wheeze Cardiovascular: Regular rate, Regular Rhythm, Normal S1, Normal S2, No murmurs Abdomen: Bowel Sounds Present, Soft, Non Tender, Non-Distended, No Hepato- splenomegaly Extremities: No edema, No Calf Tenderness Skin: No rashes, No breakdown Musculoskeletal: Cachexia Psych/Mental Status: Normal Affect, Appropriate Microbiology Past 72 Hours 02/02/19 01:57 Stool Enteric Bacteriology - Final 02/02/19 01:57 Stool C. difficile DNA Amplification - Final Current Medications Acetaminophen (Tylenol) 650 mg PO Q6H PRN PRN PRN Reason: Mild Pain (1-3)/Temp > 100.7 F Last Admin: 02/02/19 00:44 Dose: 650 mg Al Hydroxide/Mg Hydroxide (Mylanta Ii) 30 ml PO Q6H PRN PRN PRN Reason: dyspesia Albuterol Sulfate (Ventolin Aerosols) 2.5 mg INHALATION Q6H PRN PRN PRN Reason: SOB &/OR WHEEZING Albuterol/Ipratropium (Duoneb) 3 ml INHALATION Q6HWA.RT DACIA Last Admin: 02/04/19 13:30 Dose: 3 ml Amlodipine Besylate (Norvasc) 5 mg PO DAILY [facility] Last Admin: 02/04/19 12:07 Dose: 5 mg Bisacodyl (Dulcolax) 10 mg RECTAL DAILY PRN PRN Reason: Constipation Bisacodyl (Dulcolax) 10 mg PO DAILY PRN PRN Reason: Constipation Last Admin: 02/04/19 08:22 Dose: 10 mg Chlordiazepoxide (Librium) 25 mg PO Q12H DACIA; Taper Stop: 02/05/19 08:59 Last Admin: 02/04/19 09:39 Dose: 25 mg Dicyclomine HCl (Bentyl) 20 mg PO Q6H PRN PRN PRN Reason: abdominal discomfort Last Admin: 02/04/19 08:21 Dose: 20 mg Hydralazine HCl (Apresoline Iv) 10 mg IV Q4H PRN PRN PRN Reason: SBP > 160 Hydroxyzine Pamoate (Vistaril Pamoate Capsule) 50 mg PO 4X/DAY PRN PRN PRN Reason: ANXIETY/INSOMNIA Last Admin: 02/03/19 21:40 Dose: 50 mg Lisinopril (Zestril) 20 mg PO DAILY [facility] Last Admin: 02/04/19 12:07 Dose: 20 mg Loperamide HCl (Imodium) 2 - 4 mg PO UD PRN PRN Reason: LOOSE STOOLS Last Admin: 02/02/19 07:06 Dose: 2 mg Lorazepam (Ativan) 1 mg IV Q4H PRN PRN PRN Reason: Severe Anxiety Lorazepam (Ativan) 2 mg IV X1 PRN PRN Reason: Seizure Methocarbamol (Methocarbamol) 750 mg PO Q6H PRN PRN PRN Reason: Muscle Aches Last Admin: 02/04/19 08:21 Dose: 750 mg Multivitamins (Multivitamin) 1 tablet PO DAILYCM [facility] Last Admin: 02/04/19 08:25 Dose: 1 tablet Nicotine (Nicoderm Cq (Pbkc)) 21 mg TRANSDERM. DAILY [facility] Last Admin: 02/04/19 09:49 Dose: 21 mg Nutritional Formula (Lactose Free) (Ensure Enlive) 120 ml PO 4X/DAY [facility] Last Admin: 02/04/19 09:49 Dose: 120 ml Ondansetron HCl (Zofran) 4 mg IV Q6H PRN PRN PRN Reason: NAUSEA/VOMITING Last Admin: 02/02/19 02:25 Dose: 4 mg Ondansetron HCl (Zofran Odt) 4 mg PO Q6H PRN PRN PRN Reason: NAUSEA Pantoprazole Sodium (Protonix) 20 mg PO DAILY [facility] Last Admin: 02/04/19 09:39 Dose: 20 mg Prednisone () 20 mg PO DAILY@0800 [facility] Last Admin: 02/04/19 08:25 Dose: 20 mg Senna (Senokot) 1 tablet PO QHS PRN PRN Reason: Constipation Sodium Chloride () 5 - 15 ml IV UD PRN PRN Reason: SALINE FLUSH Last Admin: 02/02/19 02:24 Dose: 10 ml Vilazodone HCl (Viibryd) 40 mg PO DAILY [facility] Last Admin: 02/04/19 09:40 Dose: 40 mg Medical Necessity - Tobacco Use Smoking Status: Current every day smoker Tobacco Use: Cigarettes Assessment/Plan All Active Problems (Last Reviewed 12/29/18 @ 16:11 by Mahamed Fatima DO) COPD exacerbation (Acute) Hyponatremia (Acute) Hypokalemia (Acute) Pancreatitis (Acute) Gastroenteritis (Acute) Pneumonia (Acute) Stage 2 moderate COPD by GOLD classification (Acute) History of colonoscopy (Resolved) History of appendectomy (Resolved) 1. acute alcohol withdrawal * improving * last drink was 5/7 * patient to complete Librium taper on the . * continue multivitamin * [facility] to facilitate outpatient programs. 2. Possible gastroenteritis * resolved 3. hyponatremia * resolved * likely d/t beer potomania 4. VTE prophylaxis * not indicated * ambulation Code Visit Inpatient E&M: 25348 Subs Hosp L2
[2019-02-04] MEDS: hydrOXYzine PAM 25 MG Capsule 50 MG PO (15:59)
[2019-02-04] MEDS: Ondansetron ODT 4 MG Tablet PO (20:36)
[2019-02-04] MEDS: Acetaminophen 325 MG Tablet 650 MG PO (20:40)
[2019-02-05 03:42] VITALS: BP 126/76; PULSE 80; RESP 18; TEMP 36.4; O2SAT 99
[2019-02-05] MEDS: Acetaminophen 325 MG Tablet 650 MG PO (03:50)
[2019-02-05] MEDS: hydrOXYzine PAM 25 MG Capsule 50 MG PO ×2 (03:50→12:19)
[2019-02-05 07:29] VITALS: PULSE 90
[2019-02-05] MEDS: predniSONE 20 MG Tablet PO (07:42)
[2019-02-05] MEDS: Multivitamins,Therapeutic Tablet 1 TABLET PO (07:42)
[2019-02-05 09:36] VITALS: BP 78/54; PULSE 93; PULSE 97; RESP 18; TEMP 36.4; O2SAT 93
[2019-02-05] MEDS: VILAZODONE HYDROCHLORIDE 10 MG TABLET 40 MG PO (09:48)
[2019-02-05] MEDS: Pantoprazole Sodium 20 MG Tablet PO (09:49)
--- NOTE | 2019-02-05 10:08 | DCINST_ITS ---
- Discharge Diagnoses Current Active Problems: Current Active and Chronic Problems (Last Reviewed 12/29/18 @ 16:11 by Mahamed Fatima DO) You will use the following diet at home:: No restrictions Discharge Activity: Return to Normal Activity Call your doctor if you observe: Shortness of breath, Dizziness, Fainting spells, Chest pain Additional Instructions: Recommend lowering your lisinopril regimen to 10mg daily due to low blood pressure during admission. You can use your current lisinopril tabs and cut them in half. Allergies/Adverse Reactions: Allergies Penicillins Allergy (Verified 02/01/19 13:47) Hives Medications to take at Discharge Albuterol Inhaler [Ventolin Hfa] 1 - 2 puff INHALATION Q4H PRN PRN 07/28/13 Omeprazole [Prilosec] 20 mg PO DAILY 12/17/15 Lorazepam [Ativan] 0.5 mg PO TID PRN 05/12/16 Amlodipine [Norvasc] 5 mg PO DAILY 02/04/18 Albuterol Aerosols [Ventolin Aerosols] 2.5 mg INHALATION Q6H PRN PRN 02/27/18 Ferrous Sulfate 325 mg PO DAILY@0800 02/27/18 Vilazodone Hydrochloride [Viibryd] 40 mg PO DAILY 10/28/18 Cholecalciferol (Vitamin D3) [D3-2000] 2,000 unit PO DAILY 12/29/18 Lisinopril [Zestril] 10 mg PO DAILY tablet 02/05/19 Primary Care Physician: Bernard Galan III, MD [Primary Care Provider] - Please follow up with your Primary Care Physician in: 1 Week Test Results: Test results from this visit will be discussed in further detail at your follow- up appointment, if applicable. Please Follow Up With: Dr. [facility] When: March 02, 2019 11:10am. Proposed Discharge Date: 02/05/19
--- NOTE | 2019-02-05 10:10 | PCM.DC.SUM ---
<Brandi Walton - Last Filed: 02/05/19 10:15> Discharge Date and Diagnosis Date of Admission: 02/01/19 Date of Discharge: 02/05/19 - Primary Discharge Diagnosis Active and Suspected Problems (Last Reviewed 12/29/18 @ 16:11 by Mahamed Fatima DO) 1. Acute alcohol withdrawal, chronic alcohol use 2. Beer protomania-resolved. 3. N/V/D, suspect acute viral gastroenteritis. 4. History of alcoholic pancreatitis 5. History of alcoholic hepatitis-stable. 6. Olecranon bursitis 7. Tobacco dependence 8. Chronic COPD 9. Hypertension 10. GERD 11. Severe protein calorie malnutrition - Secondary Discharge Diagnosis Chronic Problems (Last Reviewed 12/29/18 @ 16:11 by Mahamed Fatima DO) Chronic pancreatitis (Chronic) HPV (human papilloma virus) infection (Chronic) Alcoholic hepatitis (Chronic) HTN (hypertension) (Chronic) Anemia (Chronic) COPD (chronic obstructive pulmonary disease) (Chronic) Unintentional weight loss (Chronic) Tobacco abuse (Chronic) Alcohol abuse (Chronic) History of pancreatitis (Chronic) Tobacco use disorder (Chronic) GERD (gastroesophageal reflux disease) (Chronic) Chronic obstructive lung disease (Chronic) Benign hypertension (Chronic) Hospital Course and Treatment Operations: None Procedures: None Summary of Care Provided: The patient is a 53 year old F admitted 02/01/2018 due to nausea, vomiting, diarrhea. 1. Acute alcohol withdrawal, chronic alcohol use-Librium taper, folate, thiamine, multivitamin supplementation. Patient completed [facility] protocol. Outpatient counseling follow-up arranged per [facility]. Follow-up with psychiatry as scheduled. 2. Beer protomania- resolved. 3. N/V/D- resolved. Suspect acute viral gastroenteritis. Enteric pathogen stool panel negative. 4. History of alcoholic pancreatitis 5. History of alcoholic hepatitis-stable. 6. Olecranon bursitis-PRN Tylenol. Outpatient follow-up with ortho in 1 week. Patient received prednisone 20 mg daily x4 days. 7. Tobacco dependence-encourage smoking cessation. 8. Chronic COPD-as needed albuterol aerosol. 9. Hypertension-stable, continue home amlodipine, lisinopril regimen. Recommend lisinopril decrease to 10mg daily given low BP. 10. GERD-continue PPI. 11. Severe protein calorie malnutrition General: Alert, Oriented x3, Cooperative, - - Appears older than stated age. HEENT: Atraumatic, PERRLA, EOMI, Normocephalic Neck: Supple, No JVD, Negative Carotid Bruits Lungs: Clear to auscultation, Normal air movement Cardiovascular: Regular rate, Regular Rhythm, Normal S1, Normal S2, No murmurs Abdomen: Bowel Sounds Present, Soft, Non Tender, Non-Distended Extremities: No clubbing, No cyanosis, No edema, Capillary Refill Less than 3 Seconds Skin: No rashes, No breakdown Musculoskeletal: No Tenderness to Palpation of Joints or Extremities Neurological: Cranial nerves II-XII grossly intact, Neuro grossly intact Psych/Mental Status: Normal Affect, Appropriate Patient seen and examined prior to discharge. Physical assessment as noted above. Patient is stable for discharge with follow up recommendations as noted above. This patient was seen by CARMEN Stacy under the supervision of Dr. Fatima. - Physical Exam Vital Signs Temp Pulse Resp BP Pulse Ox 97.6 F L 97 18 78/54 L 93 02/05/19 09:36 02/05/19 09:36 02/05/19 09:36 02/05/19 09:36 02/05/19 09:36 Oxygen Flow Rate (L/min) 2 Oxygen Delivery Method Room Air Weight: 86 lb 15.91 oz Body Mass Index (BMI) 15.4 Intake and Output for Last 24 Hours 02/03/19 02/04/19 02/05/19 23:59 23:59 23:59 Intake Total 500 / 500 Balance 500 / 500 Microbiology Past 72 Hours 02/02/19 01:57 Enteric Bacteriology - Final Stool Discharge Diet: No Restrictions Discharge Activity: Return to Normal Activity Call your doctor if you observe: Shortness of breath, Dizziness, Fainting spells, Chest pain Home Medications: Medications to take at Discharge Albuterol Inhaler [Ventolin Hfa] 1 - 2 puff INHALATION Q4H PRN PRN 07/28/13 Omeprazole [Prilosec] 20 mg PO DAILY 12/17/15 Lorazepam [Ativan] 0.5 mg PO TID PRN 05/12/16 Amlodipine [Norvasc] 5 mg PO DAILY 02/04/18 Albuterol Aerosols [Ventolin Aerosols] 2.5 mg INHALATION Q6H PRN PRN 06/02/18 Ferrous Sulfate 325 mg PO DAILY@0800 02/27/18 Vilazodone Hydrochloride [Viibryd] 40 mg PO DAILY 10/28/18 Cholecalciferol (Vitamin D3) [D3-2000] 2,000 unit PO DAILY 12/29/18 Lisinopril [Zestril] 10 mg PO DAILY tablet 02/05/19 Primary Care Physician: Bernard Galan III, MD [Primary Care Provider] - Please follow up with your Primary Care Physician in: 1 Week Please Follow Up With: [facility] When: March 02, 2019 11:10am. Please Follow Up With: [facility] When: 1 Week Disposition: Home Minutes spent on discharge:: 35 Patient Condition:: Stable Medical Necessity - Tobacco Use Smoking Status: Current every day smoker Tobacco Use: Cigarettes Meaningful Use Info Meaningful Use Diagnoses (Choose all that apply): None applicable <Mahamed Fatima - Last Filed: 02/05/19 14:51> Discharge Date and Diagnosis - Secondary Discharge Diagnosis Chronic Problems (Last Reviewed 12/29/18 @ 16:11 by Mahamed Fatima DO) Chronic pancreatitis (Chronic) HPV (human papilloma virus) infection (Chronic) Alcoholic hepatitis (Chronic) HTN (hypertension) (Chronic) Anemia (Chronic) COPD (chronic obstructive pulmonary disease) (Chronic) Unintentional weight loss (Chronic) Tobacco abuse (Chronic) Alcohol abuse (Chronic) History of pancreatitis (Chronic) Tobacco use disorder (Chronic) GERD (gastroesophageal reflux disease) (Chronic) Chronic obstructive lung disease (Chronic) Benign hypertension (Chronic) Hospital Course and Treatment Operations: None Procedures: None Summary of Care Provided: Patient seen and examined independently. Data reviewed. I agree with the above note by the nurse practitioner. The patient is a 53 year old F patient presents with acute alcohol withdrawal. Patient was put on a Librium taper and tolerated that well. Patient completed the Librium taper today. Patient did have some hyponatremia which is likely attributable to be reported joseph and that is subsequently resolved. Patient did have nausea vomiting diarrhea which may been related with gastroenteritis upon admission. Work-up was negative and symptoms have resolved. Patient was seen by Raghav Galvez and patient is to follow-[facility] with [facility] March 02, 2019 at 11:10 AM. Patient also provided information for [facility] for Vivitrol. Otherwise patient is doing well and will be discharged home in stable condition. [] - Physical Exam General: Alert, No apparent distress HEENT: Atraumatic, Normocephalic Oral: Moist Mucosa, No Gingival or Mucosal Lesions/ Ulcerations Neck: No Nodes, Thyroid Normal Size and Texture Lungs: Clear to auscultation, Normal air movement, No rhonchi, No wheeze Cardiovascular: Regular rate, Regular Rhythm, Normal S1, Normal S2, No murmurs Abdomen: Bowel Sounds Present, Soft, Non Tender, Non-Distended, No Hepato-splenomegaly Extremities: No edema, No Calf Tenderness Vital Signs Temp Pulse Resp BP Pulse Ox 36.3 C L 102 H 18 112/73 93 02/05/19 11:19 02/05/19 11:19 02/05/19 11:19 02/05/19 11:02/05/19 11:19 Oxygen Flow Rate (L/min) 2 Oxygen Delivery Method Room Air Weight: 39.46 kg Body Mass Index (BMI) 15.4 Intake and Output for Last 24 Hours 02/03/19 02/04/19 02/05/19 23:59 23:59 23:59 Intake Total 500 / 500 Balance 500 / 500 Microbiology Past 72 Hours 02/02/19 01:57 Enteric Bacteriology - Final Stool Discharge Diet: No Restrictions Discharge Activity: Return to Normal Activity Call your doctor if you observe: Shortness of breath, Dizziness, Fainting spells, Chest pain Disposition: Home Patient Condition:: Stable Medical Necessity - Tobacco Use Smoking Status: Current every day smoker Meaningful Use Info Meaningful Use Diagnoses (Choose all that apply): None applicable Code Visit Inpatient E&M: 08767 Disch Hosp
[2019-02-05 11:19] VITALS: BP 112/73; PULSE 102; RESP 18; TEMP 36.3; O2SAT 93
--- NOTE | 2019-02-05 12:20 | NURSING ---
Pt mildly anxious, Vistaril given.
== END 2019-02-05 12:47 | disposition home or self-care (01) | DRG 775 ==
LOC: ED 17:07 → MS3 18:18
PROVIDERS: Physician Assistant; Admitting Provider Internal Medicine; Emergency Provider Emergency Medicine; Family Provider Family Medicine; PCP Family Medicine
DX: F10.239 Alcohol dependence with withdrawal, unspecified (principal); F10.229 Alcohol dependence with intoxication, unspecified; E87.1 Hypo-osmolality and hyponatremia; Y90.8 Blood alcohol level of 240 mg/100 ml or more; R64 Cachexia; Z68.1 Body mass index [BMI] 19.9 or less, adult; K64.9 Unspecified hemorrhoids; M70.22 Olecranon bursitis, left elbow; A08.4 Viral intestinal infection, unspecified; F17.210 Nicotine dependence, cigarettes, uncomplicated; E43 Unspecified severe protein-calorie malnutrition; J44.9 Chronic obstructive pulmonary disease, unspecified; I10 Essential (primary) hypertension; K21.9 Gastro-esophageal reflux disease without esophagitis
CPT/HCPCS: 36415; 80048; 80053; 80320; 81001; 83605; 83690; 85025; 87493; 87506; 94640; 97161; 97802; 99282; 99406; J7030; A4216; G0480; J2405

== ENCOUNTER → 2019-03-10 09:01 | Outpatient (CLI) | payer MEDICAID, SELFPAY ==
[2019-02-01 17:38] VITALS: BMI 15.4
--- NOTE | 2019-03-11 11:00 | PFTCOMP ---
COMPLETE PULMONARY FUNCTION TEST INTERPRETATION Brief HPI: Patient is a 53 year old female, currently under the care of Dr. Sebastian, who presents to [facility] for complete pulmonary function tests secondary to diagnosis of dyspnea. Respiratory therapist reports good effort and reproducible results. Interpretation: Forced expiration spirometry shows a severe large airways obstructive ventilatory defect with an FEV1 of 45% predicted. There is no significant bronchodilator response by strict ATS criteria. Spirograms are of good quality and plateau slowly, indicating slowly emptying areas of the lungs. The respiratory flow volume loop shows decreased expiratory flow rates at all lung volumes consistent with airway obstruction. Lung volumes by body plethysmography show a normal total lung capacity at 5.14 L, 109% predicted. FRC and RV are elevated out of proportion. Lung volume measurements are consistent with air-trapping. Diffusion capacity by carbon monoxide is at the lower limit of normal at 69% predicted. The airway resistance is elevated. Compared to previous pulmonary function tests from 10/22/2017, there is been a significant reduction in FVC and FEV 1 x 17% and 20% respectively. There has been some improvement in DLCO over this time. Impression: Irreversible severe large airways obstructive ventilatory defect resulting in air trapping. There has been changes from previous study.
== END ==
PROVIDERS: Family Provider Family Medicine; PCP Family Medicine; Referring Provider Nurse Practitioner Acute Care; Visit Provider Nurse Practitioner Acute Care
DX: J44.9 Chronic obstructive pulmonary disease, unspecified (principal)
CPT/HCPCS: 94060; 94726; 94729

== ENCOUNTER 2019-04-01 19:16 | Emergency (ER) | payer MEDICAID, SELFPAY ==
[2019-02-01 17:38] VITALS: BMI 15.4
[2019-04-01 19:17] VITALS: TEMP 36.7; BMI 16.2
[2019-04-01 19:22] VITALS: BP 118/90; PULSE 96; RESP 16; TEMP 36.7; O2SAT 93; BMI 16.2
--- NOTE | 2019-04-01 19:28 | ED.RN ---
patient states she always has abdominal pain, n/v, and diarrhea. when asked what was different about today she states she drank too much and wants to get help.
--- NOTE | 2019-04-01 20:16 | ED.VISSUMM ---
- ER Visit Summary Date of Service: 04/01/19 Chief Complaint: Abdominal pain History of Present Illness: The patient is a 53 F who called the ambulance tonight stating that she has abdominal pain has been vomiting. When specifically asked what is different about her abdominal pain from her chronic abdominal pain she states nothing. When asked why she is vomiting she states is because she has been drinking a lot of alcohol. Patient states that she is an alcoholic and she would like to be admitted to the hospital for detox. She was last admitted for detox on February 02, 2019. That sobriety lasted 1 week. She states that she went to 3 meetings in the week that she was sober. When asked to her sponsor was she says me. I point out to her that an AA urine allowed to be her own sponsor. She flippantly says what ever closes her eyes rolled back over and ignores me. Patient then tells nursing that she would like something to eat. Physical Examination: Afebrile vital signs are stable Gen: Well-nourished well-developed Head: Normocephalic atraumatic Eyes: Perrl EOMI ENT: TMs clear no rhinorrhea moist mucous membranes Neck: Supple no lymphadenopathy no JVD nontender CVS: Regular rate rhythm no murmurs normal S1-S2 Respiratory: No distress clear to auscultation bilaterally chest nontender Abdomen: Soft nontender nondistended normal bowel sounds no masses Back: Nontender Extremity: Nontender no edema Skin: Normal color no rash Neuro: alert orientated ?3 CN II-XII intact normal strength sensation Psych: Emergency Department Course and Treatment: In the patient's own words she states that there is nothing different with her chronic abdominal pain today than what was there before. The only reason she called the ambulance was to bring her to the hospital to get inpatient detox from alcohol. When I asked her why she would want detox today she states that she is just tired of drinking. I asked her what her plan for sobriety would be as she is done detox before and she states she does not know. She maintains that she will be her own counselor. I informed her that [employer] has a 90-day exclusion for readmittance. She states that she would just like her IV fluids and go home. She also asked for something for nausea I gave Adolfo. Impression: 1. Vomiting 2. Alcoholism 3. Chronic abdominal pain This note was generated with Dragon dictation software. It may contain incorrect words, spelling, and punctuation that were not noted in review of the chart prior to signing ED Disposition - Plan for ED Patient: Disposition: Home or Assisted Living Instructions: Alcohol Abuse Prescriptions: Ondansetron [Zofran Odt] 4 mg PO Q8H PRN PRN #10 tab PRN Reason: Nausea Prescription Printed Referrals: Bernard Galan III, MD [Primary Care Provider] - As soon as possible
[2019-04-01] MEDS: Ondansetron ODT 4 MG Tablet PO (20:29)
[2019-04-01] MEDS: 0.9% Normal Saline 1,000 ML 999 ML IV (20:29)
[2019-04-01 21:59] VITALS: BP 174/101; PULSE 96; RESP 16; O2SAT 93
== END 2019-04-01 22:20 | disposition home or self-care (01) ==
PROVIDERS: Emergency Provider Emergency Medicine; Family Provider Family Medicine; PCP Family Medicine
DX: R11.2 Nausea with vomiting, unspecified (principal); F10.20 Alcohol dependence, uncomplicated; R10.9 Unspecified abdominal pain; G89.29 Other chronic pain; I10 Essential (primary) hypertension; J44.9 Chronic obstructive pulmonary disease, unspecified; K21.9 Gastro-esophageal reflux disease without esophagitis; Z72.0 Tobacco use
CPT/HCPCS: 99284

== ENCOUNTER 2019-04-19 18:55 | Inpatient (IN) | payer MEDICAID, SELFPAY ==
[2019-04-19 18:55] VITALS: BP 143/97; PULSE 119; RESP 20; TEMP 36.2; O2SAT 93; BMI 14.0
--- NOTE | 2019-04-19 19:13 | CT_ITS ---
STUDY: CT ABDOMEN AND PELVIS WITH CONTRAST REASON FOR EXAM: Female, 53 years old. Weight loss RADIATION DOSAGE (If Supplied By Facility): CTDIvol = ( 10.01 ) mGy, DLP = ( 285.36 ) mGycm TECHNIQUE: Transaxial images were obtained from the dome of the diaphragm to the symphysis pubis without oral contrast. 100 ml of Isovue 300 contrast was administered. Sagittal and coronal images were reconstructed. Individualized dose optimization techniques were used for this CT. COMPARISON: 06/12/2017 FINDINGS: The visualized lung bases are clear. The visualized portions of the heart and pericardium are within normal limits. There are no calcified gallstones present. The liver is low in density, consistent with fatty infiltration. The spleen is normal in size. Again noted are pancreatic head calcifications, suggesting chronic pancreatitis. The adrenal glands are within normal limits. There are no renal or ureteral stones. There is no hydronephrosis. There are no focal renal lesions. Normal visualized stomach. There is no bowel obstruction or inflammation. The appendix is not visualized, but there are no findings to suggest acute appendicitis. The aorta is normal in caliber. There are stable atherosclerotic calcifications noted in the aorta. There is no abdominal or pelvic free air, free fluid, fluid collection or lymphadenopathy. There are no destructive osseous lesions. CT/Abdomen/Pelvis W IV Cont ONLY IMPRESSION: No acute abdominal or pelvic pathology. Fatty liver. Stable calcifications of the pancreatic head which may be due to chronic pancreatitis. Electronically Signed: Mickey Torres, at 20:39 EDT Tel , Service support ,
--- NOTE | 2019-04-19 19:14 | CT_ITS ---
STUDY: CT BRAIN WITHOUT CONTRAST REASON FOR EXAM: Female, 53 years old. Weight loss. Fall. 10/13/2013 RADIATION DOSAGE (If Supplied By Facility): CTDIvol = ( 44.99 ) mGy, DLP = ( 745.49 ) mGycm TECHNIQUE: Transaxial CT imaging of the brain was performed without administration of intravenous contrast material. Individualized dose optimization techniques were used for this CT. COMPARISON: None. FINDINGS: There is no acute bleed or infarct. There are normal white matter tracts. The ventricles are normal in configuration. There is no hydrocephalus. The visualized paranasal sinuses are clear. The mastoid air cells are well aerated. There is no skull fracture. CT/Brain/Head without Contrast IMPRESSION: No acute intracranial abnormality. Electronically Signed: Mickey Torres, at 20:34 EDT Tel , Service support ,
--- NOTE | 2019-04-19 19:14 | EKG12_ITS ---
Test Reason : ALTERED LOC Blood Pressure : / mmHG Vent. Rate : 096 BPM Atrial Rate : 096 BPM P-R Int : 196 ms QRS Dur : 070 ms QT Int : 332 ms P-R-T Axes : 084 090 074 degrees QTc Int : 419 ms Normal sinus rhythm Rightward axis Borderline ECG Confirmed by WILY YATES ([id number]), film or videotape editor QUETA REYNOSO ([id number]) on 04/21/2019 10:12:22 AM Referred By: DC Confirmed By:WILY YATES
[2019-04-19 19:23] VITALS: O2SAT 94
--- NOTE | 2019-04-19 19:25 | RAD_ITS ---
STUDY: X-RAY CHEST REASON FOR EXAM: Female, 53 years old. Fall. Pain. TECHNIQUE: Frontal view of the chest COMPARISON: 11/26/2018 FINDINGS: The lungs are hyperinflated, but clear. There are no pleural effusions. There is no pneumothorax. The heart is normal in size. The visualized osseous structures are within normal limits. RAD/Chest 1 View IMPRESSION: No acute thoracic pathology. Electronically Signed: Mickey Torres, at 19:45 EDT Tel , Service support ,
[2019-04-19 19:29] LABS: Bacteria 0 SEEN /hpf (None Seen); Mucous, Urine 0 SEEN /hpf (<or=2+); Red Blood Cells-Urine 0 SEEN /hpf (0-5); White Blood Cells 0 SEEN /hpf (0-5)
[2019-04-19 19:39] LABS: Color, Urine Yellow (Yellow); Glucose, Dipstick Normal (Normal); Ketone-Dipstick Negative (Negative); Leukocyte Esterase-Dipstick Negative /ul (Negative); Nitrite-Dipstick Negative (Negative); Occult Blood-Urine Negative /ul (Negative); Protein-Dipstick 15 mg/dl (Negative); Specific Gravity, Urine 1.005 (1.002-1.030); Urine Bilirubin Dipstick Negative (Negative); Urine Clarity Clear (Clear); Urine Urobilinogen Normal (Normal)
[2019-04-19 19:41] LABS: Absolute Lymphocyte Count 3.59 X10^3/uL (0.83-4.51); Absolute Neutrophil Count 4.2 X10^3/uL (2.0-7.7); Basophil# 0.12 X10^3/uL; Basophil% 1.3 % (0-1); Eosinophil# 0.34 X10^3/uL; Eosinophils% 3.7 % (0-5); Hematocrit 51.7 % (37-47); Hemoglobin 17.8 g/dL (12.0-15.0); Lymphocyte # 3.59 X10^3/ul (4.0); Lymphocyte % 39.5 % (19-41); Mean Corp Hgb Conc 34.4 g/dL (32-36); Mean Corpuscular Hgb 31.4 pg (27.0-32.0); Mean Corpuscular Volume 91.2 fL (81-99); Mean Platelet Vol. 9.9 fl (6.2-12.0); Monocyte# 0.74 X10^3/uL; Monocyte% 8.1 % (0-10); NRBC Flagged by Analyzer 0 % (0-5); Neutrophil % 46.3 % (47-70); Platelet Count 253 K/mm3 (150-450); RBC Distribution Width SD 43.4 fl (35.1-43.9); Red Blood Count 5.67 M/mm3 (4.2-5.4); White Blood Count 9.1 K/mm3 (4.4-11.0)
[2019-04-19 19:45] LABS: International Normalized Ratio 0.9; Partial Thromboplast Time 28.8 Seconds (24.1-36.2); Prothrombin Time (Protime)PT. 12.1 SECONDS (11.7-14.9)
[2019-04-19 19:50] LABS: ALB/GLOB Ratio 0.7 RATIO (0.9-2.4); AST(SGOT) 131 U/L (15-37); Alanine Aminotransfer ALT/SGPT 115 U/L (13-56); Albumin, Serum 3.8 g/dL (3.2-5.0); Alkaline Phosphatase 275 U/L (45-117); Anion Gap 7 (5-15); BUN 1 mg/dL (7-18); Calcium,Total 9.2 mg/dL (8.5-10.1); Chloride 101 mmol/L (98-107); EST Glomerular Filtration Rate 137 mL/min (>60); Est Glom Filt Rate - Afr Amer 166 mL/min (>60); Estimated Creatinine Clearance 71.92 ml/min; Globulin 5.2 g/dL (2.2-4.2); Glucose 119 mg/dL (74-106); Lipase 499 U/L (73-393); Potassium 3.6 mmol/L (3.5-5.1); Sodium Level 134 mmol/L (136-145)
[2019-04-19 19:55] LABS: Amphetamine Urine VISTA NEGATIVE (<1000 ng/mL); Barbiturate Urine VISTA NEGATIVE (< 200 ng/mL); Benzodiazepine Urine VISTA NEGATIVE (< 200 ng/mL); Cocaine Urine VISTA NEGATIVE (< 300 ng/mL); Ecstacy Urine VISTA NEGATIVE (< 500 ng/mL); Methadone Urine VISTA NEGATIVE (< 300 ng/mL); PCP Urine VISTA NEGATIVE (< 25 ng/mL); THC Urine VISTA NEGATIVE (< 50 ng/mL); Vista UDS pH Range 6
[2019-04-19 19:56] LABS: Squamous Epithelial Cells - UA 0-5 SEEN /hpf (5-10)
--- NOTE | 2019-04-19 20:34 | ED.RN ---
CALLED PHARMACY FOR DORA BLEVINS.
[2019-04-19 21:07] VITALS: BP 142/83; PULSE 106; RESP 16; O2SAT 95
--- NOTE | 2019-04-19 22:21 | ED.VISSUMM ---
- ER Visit Summary Date of Service: 04/19/19 Chief Complaint: Sick History of Present Illness: The patient is a 53 F who presents from home. She lives alone. She has alcoholism. She drinks 324 ounce beers per day. She says she hurts all over. She is not eating. She is losing weight. She is falling frequency. She thinks she had a stroke last week, but cannot elaborate further. She is denying visual changes, speech changes, facial droop, focal weakness or numbness. All she is denying any suicidal or homicidal thoughts. She has a history of COPD, GERD, hypertension, pancreatitis, hyponatremia, hypokalemia, anemia, and hepatitis. She is a smoker and denies any other drug use. Physical Examination: Afebrile and vital signs unremarkable except for heart rate of 119. Patient is alert and oriented to person. Cranial nerves grossly intact. Normal strength and sensation. Normal cerebellar testing. Depressed affect. Heart tachycardic but regular. Lungs clear. Patient has ecchymosis over her right lateral ribs. She has diffuse abdominal tenderness. No guarding or rebound. Skin appears normal without jaundice. Test Results: EKG showed sinus rhythm at a rate of 96. No sign of acute ischemia or infarction pattern. Troponin normal. Chest x-ray showed nothing acute. CT brain showed nothing acute. Abdomen and pelvis shows nothing acute. She has fatty liver and chronic pancreatic calcifications concerning for chronic pancreatitis. Hemoglobin 17.8. Sodium 134. Alkaline phosphatase 275, ALT 115, AST 131, lipase 499. Coags normal. Urinalysis normal. Troponin normal. Ammonia level normal. Tox screen negative. Alcohol level 288. Emergency Department Course and Treatment: Patient treated with a fluid bolus and thiamine. She was placed on a monitor while awaiting results. Work-up indicated hepatitis and possible chronic pancreatitis. She is also intoxicated. Otherwise, her evaluation is fairly unremarkable. She was concerned that she had a stroke, but on further discussion, examination, and evaluation, I do not find any signs or symptoms that would indicate she had a stroke or is having a stroke. I believe most of her issues including not eating, losing weight, and falling, are likely related to her alcohol use. Her family arrived. I spoke with her daughter. She is concerned her mother is not taking care of herself. We had a lengthy discussion. The patient states that she is interested in detox and rehab. I contacted the hospitalist who will admit for further care. Treatment Plan: As above Disposition: Discharge Impression: 1. Alcohol withdrawal 2. Chronic pancreatitis 3. Hepatitis This note was generated with [employer] dictation software. It may contain incorrect words, spelling, and punctuation that were not noted in review of the chart prior to signing ED Disposition - Plan for ED Patient: Referrals: Bernard Galan III, MD [Primary Care Provider] -
[2019-04-19 22:28] VITALS: BP 131/70; PULSE 94; RESP 20; TEMP 36.6; O2SAT 94
[2019-04-19] MEDS: Ketorolac 30 MG/ML Syringe IV (22:28)
--- NOTE | 2019-04-19 22:29 | PCM.HP.STD ---
Problem List (1) Hyponatremia Status: Acute (2) Pancreatitis Status: Acute Qualifiers: (3) Gastroenteritis Status: Acute (4) Stage 2 moderate COPD by GOLD classification Status: Acute Comment: FEV1 55% predicted (5) Chronic pancreatitis Status: Chronic (6) Alcoholic hepatitis Status: Chronic (7) HTN (hypertension) Status: Chronic (8) COPD (chronic obstructive pulmonary disease) Status: Chronic (9) Alcohol abuse Status: Chronic (10) GERD (gastroesophageal reflux disease) Status: Chronic History of Present Illness Date of Admission: 04/19/19 Chief Complaint: Alcohol withdrawal The patient is a 53 year old F with PMH as below who presents after having an episode of nausea, vomiting, diarrhea today. She states that she usually has diarrhea but she got more sick today with the nausea and vomiting that she usually does. She is a chronic pancreatitis patient as well as an alcoholic. She drinks about three 24 ounce bottles of beer, with her last drink this afternoon prior to coming to the ER. She has not been eating or drinking very well and has lost weight. In the ER she was found to be hyponatremic which is chronic as well as an elevated lipase to 499, not consistent with pancreatitis but she does have probable chronic pancreatitis as well as chronic alcohol hepatitis with elevated AST's and ALTs. Her urine drug screen is negative for any other drugs however her alcohol level on admission was 288, and she would like to be admitted for detox and [facility]. Past Medical History Past Medical History (Chronic Problems): Chronic Problems (Last Reviewed 12/29/18 @ 16:11 by Mahamed Fatima DO) Nicotine dependence, cigarettes, uncomplicated (Chronic) Chronic pancreatitis (Chronic) HPV (human papilloma virus) infection (Chronic) Alcoholic hepatitis (Chronic) HTN (hypertension) (Chronic) Anemia (Chronic) COPD (chronic obstructive pulmonary disease) (Chronic) Unintentional weight loss (Chronic) Tobacco abuse (Chronic) Alcohol abuse (Chronic) History of pancreatitis (Chronic) Tobacco use disorder (Chronic) GERD (gastroesophageal reflux disease) (Chronic) Chronic obstructive lung disease (Chronic) Benign hypertension (Chronic) Medical History: Medical History (Last Reviewed 12/29/18 @ 16:11 by Mahamed Fatima DO) Chronic pancreatitis (Chronic) K86.1 HPV (human papilloma virus) infection (Chronic) B97.7 Alcoholic hepatitis (Chronic) K70.10 HTN (hypertension) (Chronic) I10 Anemia (Chronic) D64.9 COPD (chronic obstructive pulmonary disease) (Chronic) J44.9 Unintentional weight loss (Chronic) R63.4 Tobacco abuse (Chronic) Z72.0 Alcohol abuse (Chronic) F10.10 History of pancreatitis (Chronic) Z87.19 Tobacco use disorder (Chronic) F17.200 GERD (gastroesophageal reflux disease) (Chronic) K21.9 Chronic obstructive lung disease (Chronic) J44.9 Benign hypertension (Chronic) I10 Allergies Penicillins Allergy (Verified 04/19/19 18:56) Hives Home Medications: Ambulatory Orders Medication Instructions Recorded Albuterol Inhaler [Ventolin Hfa] 1 - 2 puff INHALATION Q4H PRN PRN 07/28/13 Omeprazole [Prilosec] 20 mg PO DAILY 16 Albuterol Aerosols [Ventolin 2.5 mg INHALATION Q6H PRN PRN 02/27/18 Aerosols] Ferrous Sulfate 325 mg PO DAILY@0800 02/27/18 Vilazodone Hydrochloride [Viibryd] 40 mg PO DAILY 10/28/18 Cholecalciferol (Vitamin D3) 2,000 unit PO DAILY 12/29/18 [D3-2000] Ondansetron [Zofran Odt] 4 mg PO Q8H PRN PRN #10 tab 04/01/19 Lorazepam [Ativan] 0.5 - 1 mg PO DAILY PRN 04/19/19 Melatonin 10 - 15 mg PO QHS PRN 04/19/19 hydrOXYzine pamoate capsule 25 mg PO TID PRN 04/19/19 [Vistaril pamoate capsule] Surgical History: Surgical History (Last Reviewed 12/29/18 @ 16:11 by Mahamed Fatima DO) History of colonoscopy (Resolved) Z98.890 History of appendectomy (Resolved) Z98.890, Z90.49 Surgical History: no surgical history, - - Tubal ligation Psychiatric History: No pertinent psych hx 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 Denies: Chills, Fever HEENT: Denies: Head Aches, Sinus Congestion, Sinus Drainage Cardiovascular: Denies: Chest Pain, Palpitations Respiratory: Denies: Cough, Shortness of breath at rest, Sputum production Gastrointestinal: Reports: Diarrhea, Nausea, Vomiting. Denies: Abdominal Pain Genitourinary: Denies: Dysuria Musculoskeletal: Denies: Joint Pain, Joint Tenderness Skin: Denies: Rash, Wounds Neurological: Denies: Numbness, Tingling, Focal weakness Psychiatric: Denies: Anxiety, Depression Hematologic/ Lymphatic: Denies: Easy Bruising, Easy Bleeding VTE Information - Inpt Only VTE Present on Admission: No - Physical Exam General: Alert, Oriented x3, Cooperative, No apparent distress, - - Seems to be malnourished, she is 79 pounds HEENT: Atraumatic, PERRLA, EOMI, Normocephalic Neck: Supple, No JVD Lungs: Clear to auscultation, Normal air movement, No rhonchi, No wheeze, No rales, Diminished Cardiovascular: Regular rate, Regular Rhythm, Normal S1, Normal S2, No murmurs Abdomen: Soft, Non Tender, Non-Distended, No Hepato-splenomegaly Extremities: No edema, Capillary Refill Less than 3 Seconds Skin: No rashes, No breakdown Neurological: Neuro grossly intact, Sensory exam intact to light touch and pain Psych/Mental Status: Flat Affect Vital Signs Temp Pulse Resp BP Pulse Ox 97.1 F L 106 H 16 142/83 H 95 04/19/19 18:55 04/19/19 21:07 04/19/19 21:07 04/19/19 21:07 04/19/19 21:07 Oxygen Delivery Method Room Air Weight: 79 lb Body Mass Index (BMI) 14.0 Laboratory Tests Past 24 Hrs 04/19/19 04/19/19 04/19/19 17:25 17:25 19:05 WBC RBC Hgb Hct MCV MCH MCHC RDW Std Deviation RDW Coeff of Min Plt Count MPV Immature Gran % (Auto) Neut % (Auto) Lymph % (Auto) Barron % (Auto) Eos % (Auto) Baso % (Auto) Absolute Neuts (auto) Absolute Lymphs (auto) Absolute Nucleated RBC Nucleated RBC % PT INR APTT Sodium 134 L Potassium 3.6 Chloride 101 Carbon Dioxide 26.0 Anion Gap 7 BUN 1 L Creatinine 0.50 L Estim Creat Clear Calc 71.92 Est GFR (MDRD) Af Amer 166 Est GFR (MDRD) Non-Af 137 BUN/Creatinine Ratio 2.0 L Glucose 119 H Calcium 9.2 Total Bilirubin 0.20 AST 131 H ALT 115 H Alkaline Phosphatase 275 H Ammonia Troponin I < 0.015 Total Protein 9.0 H Albumin 3.8 Globulin 5.2 H Albumin/Globulin Ratio 0.7 L Lipase 499 H Urine Color Yellow Urine Clarity Clear Urine pH 6.0 Ur Specific [place] 1.005 Urine Protein 15 H Urine Glucose (UA) Normal Urine Ketones Negative Urine Occult Blood Negative Urine Nitrite Negative Urine Bilirubin Negative Urine Urobilinogen Normal Ur Leukocyte Esterase Negative Urine RBC 0 SEEN Urine WBC 0 SEEN Ur Squamous Epith Cells 0-5 SEEN Urine Bacteria 0 SEEN Urine Mucus 0 SEEN Urine Opiates Screen NEGATIVE Urine Methadone Screen NEGATIVE Ur Barbiturates Screen NEGATIVE Ur Phencyclidine Scrn NEGATIVE Ur Amphetamines Screen NEGATIVE U Methamphetamin-MDMA NEGATIVE U Benzodiazepines Scrn NEGATIVE Urine Cocaine Screen NEGATIVE U Cannabinoids Screen NEGATIVE Ur Drug Screen Comment Ethyl Alcohol 04/19/19 04/19/19 04/19/19 19:05 19:05 19:05 WBC 9.1 RBC 5.67 H Hgb 17.8 H Hct 51.7 H MCV 91.2 MCH 31.4 MCHC 34.4 RDW Std Deviation 43.4 RDW Coeff of Min 13.0 Plt Count 253 MPV 9.9 Immature Gran % (Auto) 1.100 H Neut % (Auto) 46.3 L Lymph % (Auto) 39.5 Barron % (Auto) 8.1 Eos % (Auto) 3.7 Baso % (Auto) 1.3 H Absolute Neuts (auto) 4.2 Absolute Lymphs (auto) 3.59 Absolute Nucleated RBC 0.00 Nucleated RBC % 0 PT 12.1 INR 0.9 APTT 28.8 Sodium Potassium Chloride Carbon Dioxide Anion Gap BUN Creatinine Estim Creat Clear Calc Est GFR (MDRD) Af Amer Est GFR (MDRD) Non-Af BUN/Creatinine Ratio Glucose Calcium Total Bilirubin AST ALT Alkaline Phosphatase Ammonia Troponin I Total Protein Albumin Globulin Albumin/Globulin Ratio Lipase Urine Color Urine Clarity Urine pH Ur Specific [place] Urine Protein Urine Glucose (UA) Urine Ketones Urine Occult Blood Urine Nitrite Urine Bilirubin Urine Urobilinogen Ur Leukocyte Esterase Urine RBC Urine WBC Ur Squamous Epith Cells Urine Bacteria Urine Mucus Urine Opiates Screen Urine Methadone Screen Ur Barbiturates Screen Ur Phencyclidine Scrn Ur Amphetamines Screen U Methamphetamin-MDMA U Benzodiazepines Scrn Urine Cocaine Screen U Cannabinoids Screen Ur Drug Screen Comment Ethyl Alcohol 288.0 04/19/19 21:00 WBC RBC Hgb Hct MCV MCH MCHC RDW Std Deviation RDW Coeff of Min Plt Count MPV Immature Gran % (Auto) Neut % (Auto) Lymph % (Auto) Barron % (Auto) Eos % (Auto) Baso % (Auto) Absolute Neuts (auto) Absolute Lymphs (auto) Absolute Nucleated RBC Nucleated RBC % PT INR APTT Sodium Potassium Chloride Carbon Dioxide Anion Gap BUN Creatinine Estim Creat Clear Calc Est GFR (MDRD) Af Amer Est GFR (MDRD) Non-Af BUN/Creatinine Ratio Glucose Calcium Total Bilirubin AST ALT Alkaline Phosphatase Ammonia 11.0 Troponin I Total Protein Albumin Globulin Albumin/Globulin Ratio Lipase Urine Color Urine Clarity Urine pH Ur Specific [place] Urine Protein Urine Glucose (UA) Urine Ketones Urine Occult Blood Urine Nitrite Urine Bilirubin Urine Urobilinogen Ur Leukocyte Esterase Urine RBC Urine WBC Ur Squamous Epith Cells Urine Bacteria Urine Mucus Urine Opiates Screen Urine Methadone Screen Ur Barbiturates Screen Ur Phencyclidine Scrn Ur Amphetamines Screen U Methamphetamin-MDMA U Benzodiazepines Scrn Urine Cocaine Screen U Cannabinoids Screen Ur Drug Screen Comment Ethyl Alcohol Assessment/Plan All Active Problems (Last Reviewed 12/29/18 @ 16:11 by Mahamed Fatima DO) COPD exacerbation (Acute) Hyponatremia (Acute) Hypokalemia (Acute) Pancreatitis (Acute) Gastroenteritis (Acute) Pneumonia (Acute) Stage 2 moderate COPD by GOLD classification (Acute) History of colonoscopy (Resolved) History of appendectomy (Resolved) 1. Alcohol intoxication with eventual withdrawal/dehydration/possible gastroenteritis/alcoholic hepatitis/chronic pancreatitis -Blood alcohol is 288 -Her hemoglobin is also elevated indicating dehydration, will start on IV fluids -Continue with [email or web address] detox program -Librium taper, monitor LFTs -Lipase is 499, this is likely associate with her chronic pancreatitis as is her diarrhea is also chronic -AST is 131 and ALT is 115 with a 275 alk phos 2. GERD -Stable -Continue with PPI 3. COPD -Not in exacerbation -Continue with her home inhalers 4. Chronic iron deficiency anemia -Likely secondary to either her PPI or her chronic alcoholism and lack of nourishment -Continue with iron replacement 5. Weight loss -This likely secondary to her alcoholism, her albumin is 3.8 -We will monitor and provide a regular diet DVT: Ambulation Code Visit Inpatient E&M: 44605 Init Hosp L3
[2019-04-19 22:53] VITALS: BMI 15.5
[2019-04-19 23:08] VITALS: BP 100/75; PULSE 84; RESP 20; TEMP 36.9; O2SAT 94
[2019-04-19 23:16] LABS: Bedside Glucose 141 mg/dL (70-110)
[2019-04-19] MEDS: 0.9% Normal Saline 1,000 ML 100 ML IV (23:21)
[2019-04-19] MEDS: chlordiazePOXIDE 25 MG Capsule PO (23:29)
[2019-04-19] MEDS: Methocarbamol 750 MG Tablet PO (23:29)
[2019-04-19] MEDS: Dicyclomine 10 MG Capsule 20 MG PO (23:30)
[2019-04-20] VITALS (8 sets, daily range): BP systolic 127–156; BP diastolic 52–96; PULSE 76–95; RESP 16–20; TEMP 36.4–36.9; O2SAT 93–98
[2019-04-20] MEDS: hydrOXYzine PAM 25 MG Capsule 50 MG PO ×2 (02:38→08:28)
[2019-04-20] MEDS: chlordiazePOXIDE 25 MG Capsule PO ×3 (05:04→16:51)
[2019-04-20 05:44] LABS: Absolute Lymphocyte Count 2.51 X10^3/uL (0.83-4.51); Absolute Neutrophil Count 4.3 X10^3/uL (2.0-7.7); Basophil# 0.11 X10^3/uL; Basophil% 1.3 % (0-1); Eosinophil# 0.52 X10^3/uL; Eosinophils% 6.1 % (0-5); Hematocrit 41.3 % (37-47); Lymphocyte # 2.51 X10^3/ul (4.0); Lymphocyte % 29.6 % (19-41); Mean Corp Hgb Conc 33.9 g/dL (32-36); Mean Corpuscular Hgb 30.6 pg (27.0-32.0); Mean Corpuscular Volume 90.4 fL (81-99); Mean Platelet Vol. 10.1 fl (6.2-12.0); Monocyte# 1.02 X10^3/uL; NRBC Flagged by Analyzer 0 % (0-5); Neutrophil # 4.26 X10^3/uL (2.7-7.7); Neutrophil % 50.3 % (47-70); Platelet Count 186 K/mm3 (150-450); RBC Distribution Width CV 13.2 % (11.6-14.6); RBC Distribution Width SD 43.3 fl (35.1-43.9); Red Blood Count 4.57 M/mm3 (4.2-5.4); White Blood Count 8.5 K/mm3 (4.4-11.0)
[2019-04-20 06:09] LABS: ALB/GLOB Ratio 0.7 RATIO (0.9-2.4); AST(SGOT) 89 U/L (15-37); Alanine Aminotransfer ALT/SGPT 79 U/L (13-56); Albumin, Serum 2.9 g/dL (3.2-5.0); Alkaline Phosphatase 189 U/L (45-117); Anion Gap 4 (5-15); BUN 3 mg/dL (7-18); BUN/Creat Ratio 7.9 RATIO (10-20); Calcium,Total 8.6 mg/dL (8.5-10.1); Chloride 106 mmol/L (98-107); Creatinine, Serum 0.38 mg/dL (0.55-1.02); EST Glomerular Filtration Rate 185 mL/min (>60); Est Glom Filt Rate - Afr Amer 224 mL/min (>60); Globulin 3.9 g/dL (2.2-4.2); Glucose 75 mg/dL (74-106); Potassium 3.6 mmol/L (3.5-5.1); Protein, Total 6.8 g/dL (6.4-8.2); Sodium Level 138 mmol/L (136-145)
[2019-04-20 07:52] LABS: Lipase 377 U/L (73-393)
[2019-04-20] MEDS: Dicyclomine 10 MG Capsule 20 MG PO ×2 (08:27→16:52)
[2019-04-20] MEDS: Methocarbamol 750 MG Tablet PO ×2 (08:28→20:23)
[2019-04-20] MEDS: Multivitamins,Therapeutic Tablet 1 TABLET PO (08:28)
[2019-04-20] MEDS: Pantoprazole Sodium 20 MG Tablet PO (08:28)
[2019-04-20] MEDS: Folic Acid 1 MG Tablet PO (08:28)
[2019-04-20] MEDS: Thiamine Hydrochloride 100 MG Tablet PO (08:28)
[2019-04-20] MEDS: Ferrous Sulfate 325 MG Tablet PO (08:28)
[2019-04-20] MEDS: VILAZODONE HYDROCHLORIDE 10 MG TABLET 40 MG PO (08:29)
[2019-04-20] MEDS: 0.9% Normal Saline 1,000 ML 100 ML IV ×2 (08:29→19:41)
--- NOTE | 2019-04-20 08:54 | PCM.PROGNOTE ---
Subjective: Chief complaint: Follow-up after admission for alcohol intoxication with eventual withdrawal. Patient seen and examined. No acute events overnight. She mentioned that she could not sleep overnight although nursing staff states that she slipped since she was admitted. He still complaining of hand tremors and restlessness but slightly improved. Complaint of abdominal cramps, no nausea or vomiting. Her vital signs are stable. - Physical Exam General: Alert, Oriented x3, Cooperative, - - Shaky, tremors, mildly restless. HEENT: Atraumatic, PERRLA, EOMI, Normocephalic Oral: Moist Mucosa, No Gingival or Mucosal Lesions/ Ulcerations Neck: Supple, No JVD, Negative Carotid Bruits, Trachea Midline, Thyroid Normal Size and Texture Lungs: Clear to auscultation, Normal air movement, No rhonchi, No wheeze, No rales, Diminished Cardiovascular: Regular rate, Regular Rhythm, Normal S1, Normal S2, No murmurs, PMI Normal Abdomen: Bowel Sounds Present, Soft, Non Tender, Non-Distended, No Hepato-splenomegaly Extremities: No clubbing, No cyanosis, No edema Skin: No rashes, No breakdown Lymphatic: No Cervical, Supraclavicular, or Inguinal Adenopathy Neurological: Cranial nerves II-XII grossly intact, Motor Exam 5/5 strength throughout Psych/Mental Status: Normal Affect, Appropriate, Alert and oriented to time, place, person, mood and affect Vital Signs Temp Pulse Resp BP Pulse Ox 98.2 F 95 18 156/96 H 93 04/20/19 08:23 04/20/19 08:23 04/20/19 08:23 04/20/19 08:23 04/20/19 08:23 Oxygen Delivery Method Room Air Weight: 87 lb 11.904 oz Body Mass Index (BMI) 15.5 Intake and Output for Last 24 Hours 04/18/19 04/19/19 04/20/19 23:59 23:59 23:59 Intake Total 985 / 985 Balance 985 / 985 Laboratory Tests Past 24 Hrs 04/19/19 04/19/19 04/19/19 17:25 17:25 19:05 WBC RBC Hgb Hct MCV MCH MCHC RDW Std Deviation RDW Coeff of Min Plt Count MPV Immature Gran % (Auto) Neut % (Auto) Lymph % (Auto) [place] % (Auto) Eos % (Auto) Baso % (Auto) Absolute Neuts (auto) Absolute Lymphs (auto) Absolute Nucleated RBC Nucleated RBC % PT INR APTT Sodium 134 L Potassium 3.6 Chloride 101 Carbon Dioxide 26.0 Anion Gap 7 BUN 1 L Creatinine 0.50 L Estim Creat Clear Calc 71.92 Est GFR (MDRD) Af Amer 166 Est GFR (MDRD) Non-Af 137 BUN/Creatinine Ratio 2.0 L Glucose 119 H Calcium 9.2 Total Bilirubin 0.20 AST 131 H ALT 115 H Alkaline Phosphatase 275 H Ammonia Troponin I < 0.015 Total Protein 9.0 H Albumin 3.8 Globulin 5.2 H Albumin/Globulin Ratio 0.7 L Lipase 499 H Urine Color Yellow Urine Clarity Clear Urine pH 6.0 Ur Specific Barnhart 1.005 Urine Protein 15 H Urine Glucose (UA) Normal Urine Ketones Negative Urine Occult Blood Negative Urine Nitrite Negative Urine Bilirubin Negative Urine Urobilinogen Normal Ur Leukocyte Esterase Negative Urine RBC 0 SEEN Urine WBC 0 SEEN Ur Squamous Epith Cells 0-5 SEEN Urine Bacteria 0 SEEN Urine Mucus 0 SEEN Urine Opiates Screen NEGATIVE Urine Methadone Screen NEGATIVE Ur Barbiturates Screen NEGATIVE Ur Phencyclidine Scrn NEGATIVE Ur Amphetamines Screen NEGATIVE U Methamphetamin-MDMA NEGATIVE U Benzodiazepines Scrn NEGATIVE Urine Cocaine Screen NEGATIVE U Cannabinoids Screen NEGATIVE Ur Drug Screen Comment Ethyl Alcohol 04/19/19 04/19/19 04/19/19 19:05 19:05 19:05 WBC 9.1 RBC 5.67 H Hgb 17.8 H Hct 51.7 H MCV 91.2 MCH 31.4 MCHC 34.4 RDW Std Deviation 43.4 RDW Coeff of Min 13.0 Plt Count 253 MPV 9.9 Immature Gran % (Auto) 1.100 H Neut % (Auto) 46.3 L Lymph % (Auto) 39.5 [place] % (Auto) 8.1 Eos % (Auto) 3.7 Baso % (Auto) 1.3 H Absolute Neuts (auto) 4.2 Absolute Lymphs (auto) 3.59 Absolute Nucleated RBC 0.00 Nucleated RBC % 0 PT 12.1 INR 0.9 APTT 28.8 Sodium Potassium Chloride Carbon Dioxide Anion Gap BUN Creatinine Estim Creat Clear Calc Est GFR (MDRD) Af Amer Est GFR (MDRD) Non-Af BUN/Creatinine Ratio Glucose Calcium Total Bilirubin AST ALT Alkaline Phosphatase Ammonia Troponin I Total Protein Albumin Globulin Albumin/Globulin Ratio Lipase Urine Color Urine Clarity Urine pH Ur Specific Barn[place] Urine Protein Urine Glucose (UA) Urine Ketones Urine Occult Blood Urine Nitrite Urine Bilirubin Urine Urobilinogen Ur Leukocyte Esterase Urine RBC Urine WBC Ur Squamous Epith Cells Urine Bacteria Urine Mucus Urine Opiates Screen Urine Methadone Screen Ur Barbiturates Screen Ur Phencyclidine Scrn Ur Amphetamines Screen U Methamphetamin-MDMA U Benzodiazepines Scrn Urine Cocaine Screen U Cannabinoids Screen Ur Drug Screen Comment Ethyl Alcohol 288.0 04/19/19 04/20/19 04/20/19 21:00 05:16 05:16 WBC 8.5 RBC 4.57 Hgb 14.0 Hct 41.3 MCV 90.4 MCH 30.6 MCHC 33.9 RDW Std Deviation 43.3 RDW Coeff of Min 13.2 Plt Count 186 MPV 10.1 Immature Gran % (Auto) 0.700 Neut % (Auto) 50.3 Lymph % (Auto) 29.6 [place] % (Auto) 12.0 H Eos % (Auto) 6.1 H Baso % (Auto) 1.3 H Absolute Neuts (auto) 4.3 Absolute Lymphs (auto) 2.51 Absolute Nucleated RBC 0.00 Nucleated RBC % 0 PT INR APTT Sodium 138 Potassium 3.6 Chloride 106 Carbon Dioxide 28.0 Anion Gap 4 L BUN 3 L Creatinine 0.38 L Estim Creat Clear Calc 105.10 Est GFR (MDRD) Af Amer 224 Est GFR (MDRD) Non-Af 185 BUN/Creatinine Ratio 7.9 L Glucose 75 Calcium 8.6 Total Bilirubin 0.40 AST 89 H ALT 79 H Alkaline Phosphatase 189 H Ammonia 11.0 Troponin I Total Protein 6.8 Albumin 2.9 L Globulin 3.9 Albumin/Globulin Ratio 0.7 L Lipase Urine Color Urine Clarity Urine pH Ur Specific [place] Urine Protein Urine Glucose (UA) Urine Ketones Urine Occult Blood Urine Nitrite Urine Bilirubin Urine Urobilinogen Ur Leukocyte Esterase Urine RBC Urine WBC Ur Squamous Epith Cells Urine Bacteria Urine Mucus Urine Opiates Screen Urine Methadone Screen Ur Barbiturates Screen Ur Phencyclidine Scrn Ur Amphetamines Screen U Methamphetamin-MDMA U Benzodiazepines Scrn Urine Cocaine Screen U Cannabinoids Screen Ur Drug Screen Comment Ethyl Alcohol 04/20/19 05:16 WBC RBC Hgb Hct MCV MCH MCHC RDW Std Deviation RDW Coeff of Min Plt Count MPV Immature Gran % (Auto) Neut % (Auto) Lymph % (Auto) [place] % (Auto) Eos % (Auto) Baso % (Auto) Absolute Neuts (auto) Absolute Lymphs (auto) Absolute Nucleated RBC Nucleated RBC % PT INR APTT Sodium Potassium Chloride Carbon Dioxide Anion Gap BUN Creatinine Estim Creat Clear Calc Est GFR (MDRD) Af Amer Est GFR (MDRD) Non-Af BUN/Creatinine Ratio Glucose Calcium Total Bilirubin AST ALT Alkaline Phosphatase Ammonia Troponin I Total Protein Albumin Globulin Albumin/Globulin Ratio Lipase 377 Urine Color Urine Clarity Urine pH Ur Specific [place] Urine Protein Urine Glucose (UA) Urine Ketones Urine Occult Blood Urine Nitrite Urine Bilirubin Urine Urobilinogen Ur Leukocyte Esterase Urine RBC Urine WBC Ur Squamous Epith Cells Urine Bacteria Urine Mucus Urine Opiates Screen Urine Methadone Screen Ur Barbiturates Screen Ur Phencyclidine Scrn Ur Amphetamines Screen U Methamphetamin-MDMA U Benzodiazepines Scrn Urine Cocaine Screen U Cannabinoids Screen Ur Drug Screen Comment Ethyl Alcohol POC Glucose 04/19/19 23:12 POC Glucose 141 H Medical Necessity - Tobacco Use Smoking Status: Current every day smoker Tobacco Use: Cigarettes Assessment/Plan This is a 53 years old female patient presented to the emergency room because of generalized body aches, nausea, vomiting and diarrhea patient was admitted for acute alcohol intoxication pending alcohol withdrawal. #1 acute alcohol intoxication with eventual withdrawal: Patient drinks 3-6 beers daily, last drink was yesterday morning. She had a history of admission for detoxification but she relapsed. She is on a tapering course of Librium, PRN Ativan, folic acid and thiamine supplement as well as multivitamins. Her vital signs are stable. Blood alcohol level on admission was 288. Urine drug screen was negative. Plan to continue same treatment. #2 dehydration: As indicated by elevated hemoglobin, hemoconcentration. Function was normal. Patient was on IV fluids, hemoglobin is down to 14 g/dL, improved. Kidney function remains stable. Plan to DC IV fluids, encourage oral intake. #3 chronic alcoholic hepatitis: Liver transaminases and alkaline phosphatase are chronically elevated, bilirubin is normal. Repeat LFT from today revealed that liver transaminases and alkaline phosphatase are trending down. Patient denies any abdominal pain. Plan to monitor. #4 chronic alcoholic pancreatitis: On admission, lipase was 499. Patient denies abdominal pain. Repeat lipase from today is 377, normalized. #5 COPD: Clinically stable, pulse ox is maintained on room air. Continue albuterol as needed. #6 hypertension: Blood pressure stable, she is not on any antihypertensive medications. #7 DVT prophylaxis: No chemical prophylaxis, low risk patient. This note was generated with [employer] dictation software. It may contain incorrect words, spelling, and punctuation that were not noted in checking the note before signing. Code Visit Inpatient E&M: 18055 Subs Hosp L2
--- NOTE | 2019-04-20 14:11 | CHAPLAIN ---
Type of Pastoral Visit _x__ Initial Visit ___ Follow-up Visit ___ On-call Visit ___ General Patient Visit ___ Spiritual Assessment ___ Family Conference ___ Bereavement ___ Rapid Response ___ Code Blue ___ Other (describe below) Pastoral Care Referral From _x__ Patient ___ Family ___ Nurse ___ Physician ___ Field Health Officer ___ Splitter Tender ___ Other (describe below) Sacrament/Intervention _x__ Active listening ___ Anointing ___ Islam ___ Bereavement ___ Communion ___ Swapna exploration ___ ___ Life review _x__ Prayer ___ Reconciliation ___ Sacrament of Sick _x__ Supportive presence ___ Wedding ___ Other (describe below) Pastoral Comments
[2019-04-21] MEDS: chlordiazePOXIDE 25 MG Capsule PO ×3 (01:27→16:59)
[2019-04-21 04:24] VITALS: BP 158/99; PULSE 78; RESP 16; TEMP 36.4; O2SAT 97
[2019-04-21] MEDS: Methocarbamol 750 MG Tablet PO ×3 (04:38→20:50)
[2019-04-21] MEDS: 0.9% Normal Saline 1,000 ML 100 ML IV ×2 (05:11→14:20)
--- NOTE | 2019-04-21 08:30 | PCM.PROGNOTE ---
Subjective: Chief complaint: Follow-up after admission for acute alcohol intoxication/withdrawal. Patient seen and examined. No acute events overnight. Today, she reported improvement of her symptoms. She was able to sleep last night. She is having less anxiety and hand tremors. Denies abdominal pain, nausea or vomiting. Her vital signs are stable. - Physical Exam General: Alert, Oriented x3, Cooperative, No apparent distress HEENT: Atraumatic, PERRLA, EOMI, Normocephalic Oral: Moist Mucosa, No Gingival or Mucosal Lesions/ Ulcerations Neck: Supple, No JVD, Negative Carotid Bruits, Trachea Midline, Thyroid Normal Size and Texture Lungs: Clear to auscultation, Normal air movement, No rhonchi, No wheeze, No rales, Diminished Cardiovascular: Regular rate, Regular Rhythm, Normal S1, Normal S2, PMI Normal Abdomen: Bowel Sounds Present, Soft, Non Tender, Non-Distended, No Hepato-splenomegaly Extremities: No clubbing, No cyanosis, No edema Skin: No rashes, No breakdown Lymphatic: No Cervical, Supraclavicular, or Inguinal Adenopathy Neurological: Cranial nerves II-XII grossly intact, Neuro grossly intact Psych/Mental Status: Normal Affect, Appropriate, Alert and oriented to time, place, person, mood and affect Vital Signs Temp Pulse Resp BP Pulse Ox 97.6 F L 78 16 158/99 H 97 04/21/19 04:24 04/21/19 04:24 04/21/19 04:24 04/21/19 04:24 04/21/19 04:24 Oxygen Delivery Method Room Air Weight: 87 lb 11.904 oz Body Mass Index (BMI) 15.5 Intake and Output for Last 24 Hours 04/19/19 04/20/19 04/21/19 23:59 23:59 23:59 Intake Total 2868 / 2868 947 / 947 Output Total 575 / 575 1000 / 1000 Balance 2293 / 2293 -53 / -53 Medical Necessity - Tobacco Use Smoking Status: Current every day smoker Tobacco Use: Cigarettes Assessment/Plan This is a 53 years old female patient presented to the emergency room because of generalized body aches, nausea, vomiting and diarrhea patient was admitted for acute alcohol intoxication pending alcohol withdrawal. #1 acute alcohol intoxication with eventual withdrawal: She is on tapering course of Librium, PRN Ativan, folic acid and thiamine supplement as well as multivitamins. She reported improvement of her symptoms. Her vital signs stable. She had a history of admission for detoxification but she relapsed. Blood alcohol level on admission was 288. Urine drug screen was negative. Plan to continue same treatment, possible DC home tomorrow. #2 dehydration: Recent was on IV fluids. Hemoglobin came down to normal. Kidney function was normal. IV fluids discontinued. Encourage oral intake. #3 chronic alcoholic hepatitis: Liver transaminases and alkaline phosphatase are chronically elevated, bilirubin is normal. Repeat LFT from today revealed that liver transaminases and alkaline phosphatase are trending down. Patient denies any abdominal pain. #4 chronic alcoholic pancreatitis: On admission, lipase was 499. Patient denies abdominal pain. Repeat lipase is 377, normalized. #5 COPD: Clinically stable, pulse ox is maintained on room air. Continue albuterol as needed. #6 hypertension: Blood pressure stable, she is not on any antihypertensive medications. #7 DVT prophylaxis: No chemical prophylaxis, low risk patient, ambulate. This note was generated with [employer] dictation software. It may contain incorrect words, spelling, and punctuation that were not noted in checking the note before signing. Code Visit Inpatient E&M: 88553 Subs Hosp L2
[2019-04-21 09:43] VITALS: BP 143/107; PULSE 94; RESP 18; TEMP 36.8; O2SAT 95
[2019-04-21] MEDS: Ferrous Sulfate 325 MG Tablet PO (09:47)
[2019-04-21] MEDS: Thiamine Hydrochloride 100 MG Tablet PO (09:47)
[2019-04-21] MEDS: Folic Acid 1 MG Tablet PO (09:47)
[2019-04-21] MEDS: Multivitamins,Therapeutic Tablet 1 TABLET PO (09:47)
[2019-04-21] MEDS: Pantoprazole Sodium 20 MG Tablet PO (09:47)
[2019-04-21] MEDS: VILAZODONE HYDROCHLORIDE 10 MG TABLET 40 MG PO (09:47)
--- NOTE | 2019-04-21 12:47 | NEWVISION ---
I went to see patient regarding aftercare needs. Patient denied any needs and stated she has all of her appointments set up with the counseling center. I asked patient if she was interested in further in patient or any other services and she denied any help. Patient states she is upset that her lunch arrived at 12:30 when she asked for it to come around 2:30. patient states the hospital does not listen to her. relayed to nurse.
[2019-04-21 14:14] VITALS: BP 157/107; PULSE 89; RESP 18; TEMP 36.7; O2SAT 96
[2019-04-21] MEDS: hydrOXYzine PAM 25 MG Capsule 50 MG PO ×2 (14:21→20:52)
[2019-04-21] MEDS: LORazepam 2 MG/ML Syringe 1 MG IV (14:24)
[2019-04-21 19:44] VITALS: BP 162/96; PULSE 97; RESP 18; TEMP 36.6
[2019-04-21 20:02] VITALS: O2SAT 98
[2019-04-21] MEDS: Ibuprofen 200 MG Tablet 600 MG PO (20:50)
[2019-04-22] MEDS: chlordiazePOXIDE 25 MG Capsule PO ×2 (01:07→12:44)
[2019-04-22] MEDS: 0.9% Normal Saline 1,000 ML 100 ML IV (01:07)
[2019-04-22 01:10] VITALS: BP 156/99; PULSE 69; RESP 16; TEMP 36.4
[2019-04-22] MEDS: Ibuprofen 200 MG Tablet 600 MG PO (05:02)
[2019-04-22] MEDS: Methocarbamol 750 MG Tablet PO (05:02)
[2019-04-22] MEDS: hydrOXYzine PAM 25 MG Capsule 50 MG PO (05:02)
[2019-04-22 07:53] VITALS: BP 138/89; PULSE 80; RESP 18; TEMP 36.8
[2019-04-22] MEDS: Multivitamins,Therapeutic Tablet 1 TABLET PO (07:55)
[2019-04-22] MEDS: Ferrous Sulfate 325 MG Tablet PO (07:56)
[2019-04-22] MEDS: VILAZODONE HYDROCHLORIDE 10 MG TABLET 40 MG PO (07:56)
[2019-04-22] MEDS: Folic Acid 1 MG Tablet PO (07:56)
[2019-04-22] MEDS: Thiamine Hydrochloride 100 MG Tablet PO (07:58)
--- NOTE | 2019-04-22 08:34 | DCINST_ITS ---
You will use the following diet at home:: Regular Your food should be the consistency of: Regular Discharge Activity: Return to Normal Activity Weight Bearing Status: Weight bearing as tolerated Call your doctor if you observe: Fever of 101 or Higher, Shortness of breath, Dizziness, Fainting spells, Chest pain, Increased palpitations (irregular heartbeat), Uncontrolled pain Additional Instructions: Please follow-up with the [facility] as instructed. Allergies/Adverse Reactions: Allergies Penicillins Allergy (Verified 04/19/19 18:56) Hives Medications to take at Discharge Albuterol Inhaler [Ventolin Hfa] 1 - 2 puff INHALATION Q4H PRN PRN 07/28/13 Omeprazole [Prilosec] 20 mg PO DAILY 12/17/15 Albuterol Aerosols [Ventolin Aerosols] 2.5 mg INHALATION Q6H PRN PRN 02/27/18 Ferrous Sulfate 325 mg PO DAILY@0800 02/27/18 Vilazodone Hydrochloride [Viibryd] 40 mg PO DAILY 10/28/18 Cholecalciferol (Vitamin D3) [D3-2000] 2,000 unit PO DAILY 12/29/18 Ondansetron [Zofran Odt] 4 mg PO Q8H PRN PRN #10 tab 04/01/19 Lorazepam [Ativan] 0.5 - 1 mg PO DAILY PRN PRN 04/19/19 Melatonin 10 - 15 mg PO QHS PRN 04/19/19 hydrOXYzine pamoate capsule [Vistaril pamoate capsule] 25 mg PO TID PRN PRN 04/19/19 Folic Acid 1 mg PO DAILY #30 tab 04/22/19 Thiamine HCl 100 mg PO DAILY #30 tab 04/22/19 The following prescriptions were given: Folic Acid 1 mg PO DAILY #30 tab Prescription Printed Thiamine HCl 100 mg PO DAILY #30 tab Prescription Printed Primary Care Physician: Bernard Galan III, MD [Primary Care Provider] - Please follow up with your Primary Care Physician in: 1-2 weeks. Test Results: Test results from this visit will be discussed in further detail at your follow- up appointment, if applicable.
--- NOTE | 2019-04-22 11:51 | DS.PCM_ITS ---
Discharge Date and Diagnosis Date of Admission: 04/19/19 Date of Discharge: 04/22/19 - Primary Discharge Diagnosis #1 acute alcohol intoxication/withdrawal. #2 dehydration. #3 chronic alcoholic hepatitis/suspected liver cirrhosis. - Secondary Discharge Diagnosis Chronic Problems (Last Updated 04/20/19 @ 08:58 by Erick Gallegos MD) Nicotine dependence, cigarettes, uncomplicated (Chronic) Stage 2 moderate COPD by GOLD classification (Chronic) FEV1 55% predicted Chronic pancreatitis (Chronic) HPV (human papilloma virus) infection (Chronic) Alcoholic hepatitis (Chronic) Anemia (Chronic) Unintentional weight loss (Chronic) Tobacco abuse (Chronic) Alcohol abuse (Chronic) GERD (gastroesophageal reflux disease) (Chronic) Benign hypertension (Chronic) Hospital Course and Treatment Imaging Results: Clinical Impression(s) from Imaging Studies Abdomen/Pelvis CT 04/19/19 19:13 IMPRESSION: No acute abdominal or pelvic pathology. Fatty liver. Stable calcifications of the pancreatic head which may be due to chronic pancreatitis. Electronically Signed: Mickey Torres, at 20:39 EDT Tel , Service support , Brain CT 04/19/19 19:14 IMPRESSION: No acute intracranial abnormality. Electronically Signed: Mickey Torres, at 20:34 EDT Tel , Service support , Chest X-Ray 04/19/19 19:25 IMPRESSION: No acute thoracic pathology. Electronically Signed: Mickey Torres, at 19:45 EDT Tel , Service support , Operations: None Procedures: None Summary of Care Provided: Patient seen and examined on the day of discharge and appeared to be stable to be discharged home. Symptoms continued to improve, less shaky and restless. She was able to sleep overnight. Her vital signs are stable. The patient is a 53 year old F admitted because of generalized body aches, nausea, vomiting and diarrhea and was admitted for acute alcohol intoxication withdrawal for medical stabilization. On admission, patient had multiple complaints for which extensive work-up was done. CT scan brain performed and showed no acute findings. Patient complained of abdominal pain with nausea vomiting for CT scan abdomen and pelvis with IV contrast revealed no acute intra-abdominal or pelvic pathology. A chest x-ray showed no acute findings. Her routine blood work was remarkable for slightly elevated LFT as well as lipase which was attributed to chronic alcoholic liver disease as well as history of chronic pancreatitis. Patient was treated with tapering course of Librium, PRN Ativan, folic acid and thiamine supplement as well as PRN Bentyl, Vistaril, ibuprofen, methocarbamol. Her symptoms improved and she did well. In addition, blood alcohol level was 299. Patient discharged home in a stable medical condition, she completed a course of Librium as per [facility] protocol, discharged on folic acid and thiamine supplement, continued on Ativan as needed that she was taking before admission, maintained on her previous medications without any changes, recommended follow-up with PCP in 1 to 2 weeks, patient has an appointment with counseling center and recommended to follow-up with [facility] as outpatient. - Physical Exam General: Alert, Oriented x3, Cooperative, No apparent distress HEENT: Atraumatic, PERRLA, EOMI, Normocephalic Oral: Moist Mucosa, No Gingival or Mucosal Lesions/ Ulcerations Neck: Supple, No JVD, Negative Carotid Bruits, Trachea Midline, Thyroid Normal Size and Texture Lungs: Clear to auscultation, Normal air movement, No rhonchi, No rales Cardiovascular: Regular rate, Regular Rhythm, Normal S1, Normal S2, PMI Normal Abdomen: Bowel Sounds Present, Soft, Non Tender, Non-Distended, No Hepato- splenomegaly Extremities: No clubbing, No cyanosis, No edema Skin: No rashes, No breakdown Lymphatic: No Cervical, Supraclavicular, or Inguinal Adenopathy Neurological: Cranial nerves II-XII grossly intact, Neuro grossly intact Psych/Mental Status: Normal Affect, Appropriate Vital Signs Temp Pulse Resp BP Pulse Ox 98.2 F 80 18 138/89 H 98 04/22/19 07:53 04/22/19 07:53 04/22/19 07:53 04/22/19 07:53 04/21/19 20:02 Oxygen Delivery Method Room Air Weight: 87 lb 11.904 oz Body Mass Index (BMI) 15.5 Intake and Output for Last 24 Hours 04/20/19 04/21/19 04/22/19 23:59 23:59 23:59 Intake Total 2868 / 2868 1427 / 3821 3118 / 3118 Output Total 575 / 575 1000 / 1000 Balance 2293 / 2293 427 / 2821 3118 / 3118 Discharge Activity: Return to Normal Activity Weight Bearing Status: Weight bearing as tolerated Call your doctor if you observe: Fever of 101 or Higher, Shortness of breath, Dizziness, Fainting spells, Chest pain, Increased palpitations (irregular heartbeat), Uncontrolled pain Home Medications: Medications to take at Discharge Albuterol Inhaler [Ventolin Hfa] 1 - 2 puff INHALATION Q4H PRN PRN 07/28/13 Omeprazole [Prilosec] 20 mg PO DAILY 12/17/15 Albuterol Aerosols [Ventolin Aerosols] 2.5 mg INHALATION Q6H PRN PRN 02/27/18 Ferrous Sulfate 325 mg PO DAILY@0800 02/27/18 Vilazodone Hydrochloride [Viibryd] 40 mg PO DAILY 10/28/18 Cholecalciferol (Vitamin D3) [D3-2000] 2,000 unit PO DAILY 12/29/18 Ondansetron [Zofran Odt] 4 mg PO Q8H PRN PRN #10 tab 04/01/19 Lorazepam [Ativan] 0.5 - 1 mg PO DAILY PRN PRN 04/19/19 Melatonin 10 - 15 mg PO QHS PRN 04/19/19 hydrOXYzine pamoate capsule [Vistaril pamoate capsule] 25 mg PO TID PRN PRN 04/19/19 Folic Acid 1 mg PO DAILY #30 tab 04/22/19 Thiamine HCl 100 mg PO DAILY #30 tab 04/22/19 Following Prescrptions Were Given to Patient: Folic Acid 1 mg PO DAILY #30 tab Prescription Printed Thiamine HCl 100 mg PO DAILY #30 tab Prescription Printed Primary Care Physician: Bernard Galan III, MD [Primary Care Provider] - Please follow up with your Primary Care Physician in: 1-2 weeks. Please Follow Up With: Bernard Galan III, MD Disposition: Home Minutes spent on discharge:: 27 Patient Condition:: Stable Medical Necessity - Tobacco Use Smoking Status: Current every day smoker Tobacco Use: Cigarettes Meaningful Use Info Meaningful Use Diagnoses (Choose all that apply): None applicable Code Visit Inpatient E&M: 62977 Disch Hosp
[2019-04-22 12:47] VITALS: BP 136/72; PULSE 78; RESP 16; TEMP 36.6; O2SAT 100
--- NOTE | 2019-04-25 12:22 | CASEMGMT ---
[facility] DC PHONE CALL DC DATE: 04/22/19 DC Disposition: Home Diagnosis on Discharge: ETOH intoxication/withdrawal, dehydration LACE/STRATA: Attempted call to listed phone#. No answer and no messaging machine. Vero ALEJANDRON RN ACM
== END 2019-04-22 13:45 | disposition home or self-care (01) | DRG 775 ==
LOC: ED 19:37 → MS3 23:04
PROVIDERS: Admitting Provider Family Medicine; Emergency Provider Emergency Medicine; Family Provider Family Medicine; PCP Family Medicine; Visit Provider Hospitalist
DX: F10.229 Alcohol dependence with intoxication, unspecified (principal); F10.239 Alcohol dependence with withdrawal, unspecified; K86.0 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 chronic pancreatitis; K70.30 Alcoholic cirrhosis of liver without ascites; K70.10 Alcoholic hepatitis without ascites; E87.1 Hypo-osmolality and hyponatremia; Y90.8 Blood alcohol level of 240 mg/100 ml or more; F17.210 Nicotine dependence, cigarettes, uncomplicated; Z68.1 Body mass index [BMI] 19.9 or less, adult; K21.9 Gastro-esophageal reflux disease without esophagitis; R63.4 Abnormal weight loss; E86.0 Dehydration; I10 Essential (primary) hypertension; D50.9 Iron deficiency anemia, unspecified; J44.9 Chronic obstructive pulmonary disease, unspecified
CPT/HCPCS: 36415; 70450; 71045; 74177; 80053; 80307; 80320; 81001; 82140; 82962; 83690; 84484; 85025; 85610; 85730; 93005; 97162; 97802; 99285; 99406; J7030; J7040; Q9967; A4216; G0480; J3490

== ENCOUNTER → 2019-05-27 12:18 | Outpatient (CLI) | payer MEDICAID, SELFPAY ==
[2019-05-13 13:34] VITALS: BMI 15.5
[2019-05-27 13:49] VITALS: PULSE 100; PULSE 101; PULSE 102; PULSE 90; PULSE 91; PULSE 97; PULSE 99; O2SAT 93; O2SAT 94; O2SAT 95; O2SAT 97; O2SAT 98
--- NOTE | 2019-05-29 07:28 | PCM.PSN.6M ---
PSN 6 Minute Walk Test - 6 Minute Walk Test 6 Minute Walk Test: 6 Minute Walk Test PSN:6-Minute Walk Test Start: 05/27/19 13:49 Freq: Status: Active Protocol: [id number] Document 05/27/19 13:49 [facility] (Rec: 05/27/19 13:54 [facility] [id number]) 6 Minute Walk Test Date Performed 05/27/19 Time Performed 12:30 Height 5 ft 3 in Weight: 95 lb Weight in Pounds 95.[address]: Ani Eduardo Assistive device used: None Pre-test Oxygen Delivery Method Room Air Pulse Ox (%) 97 Pulse Rate (60-100 beats/min) 91 Dyspnea Nallely Scale (0-10) 0 1st minute Oxygen Delivery Method Room Air Pulse Ox (%) 95 Pulse Rate (60-100 beats/min) 97 Dyspnea [place]alle[place] Scale (0-10) 0 2nd minute Oxygen Delivery Method Room Air Pulse Ox (%) 94 Pulse Rate (60-100 beats/min) 99 Dyspnea Nalle[place] Scale (0-10) 0 3rd minute Oxygen Delivery Method Room Air Pulse Ox (%) 94 Pulse Rate (60-100 beats/min) 102 H Dyspnea Nallely Scale (0-10) 0 4th minute Oxygen Delivery Method Room Air Pulse Ox (%) 93 Pulse Rate (60-100 beats/min) 101 H Dyspnea Nallely Scale (0-10) 0 5th minute Oxygen Delivery Method Room Air Pulse Ox (%) 97 Pulse Rate (60-100 beats/min) 97 Dyspnea Nallely Scale (0-10) 0 6th minute Oxygen Delivery Method Room Air Pulse Ox (%) 95 Pulse Rate (60-100 beats/min) 100 Dyspnea Nallely Scale (0-10) 0 Post-test Oxygen Delivery Method Room Air Pulse Ox (%) 98 Pulse Rate (60-100 beats/min) 90 Dyspnea Nallely Scale (0-10) 0 Full Laps Walked 20 Partial Lap, Number of Tiles Walked 10 Total Distance Walked (ft) 1190 - Interpretation Interpretation: The patient ambulated 1190 feet over the course of 6 minutes getting on room air without assistive devices or breaks. Pretesting oxygen saturation was noted to be 97% on room air. With ambulation, the juanjose oxygen saturation was 93%. There was no significant exertional oxygen desaturation. - Recommendations Recommendations: There is no indication for the use of supplemental oxygen at this time.
== END ==
PROVIDERS: Family Provider Family Medicine; PCP Family Medicine; Referring Provider Nurse Practitioner Acute Care; Visit Provider Nurse Practitioner Acute Care
DX: J44.9 Chronic obstructive pulmonary disease, unspecified (principal)
CPT/HCPCS: 94618

== ENCOUNTER → 2019-05-31 07:16 | Outpatient (CLI) | payer MEDICAID, SELFPAY ==
[2019-05-13 13:34] VITALS: BMI 15.5
--- NOTE | 2019-05-31 07:19 | CT_ITS ---
STUDY: LOW DOSE CT LUNG CANCER SCREENING REASON FOR EXAM: Female, 54 years old. History of 50 pack-year smoking. RADIATION DOSAGE (If Supplied By Facility): CTDIvol = ( 2.01 ) mGy, DLP = ( 71.73 ) mGycm TECHNIQUE: No contrast was administered. Low dose technique was utilized (average mAS-38 and kVp 120). 1.25 mm axial source images with a slice interval of 1.25-mm were reconstructed in lung windows. 2.5 mm axial source images with a slice interval of 2.5-mm were reconstructed in lung windows. 5.0 mm axial source images with a slice interval of 5.0-mm were reconstructed in soft tissue windows. Nodule measured using lung windows on PACS and/or independent workstation with automated measurement of minimum and maximum diameter. Nodule measurement reported as average diameter rounded to the nearest whole number. Growth is defined as an increase ins size of greater than 1.5 mm. COMPARISON: None. NODULES: No suspicious nodules are seen. Emphysema: Diffuse emphysematous changes. Hyperinflation. Findings suggestive of scarring in the anterior aspect of the lingular segment of the left upper lobe. Aorta: Atherosclerotic calcification. Coronary arteries: Coronary artery calcifications. Heart: Calcification of the mitral valve annulus. CT/Low Dose CT Lung Screening IMPRESSION: Lung-RADS category 2 - Continue annual screening with LDCT in 12 months. IMPORTANT NOTES FOR USE: ACR Lung-RADS Version 1.0 Assessment Categories Release Date: January 23, 2014 Category: Coded 0-4 bases on nodule(s) with highest degree of suspicion. Negative screen is defined as categories 1 and 2; a positive screen is defined as categories 3 and 4. Category 3 and 4A nodules that are unchanged on interval CT should be coded as category 2, and individuals returned to screening in 12 months. Category 4X: Category 3 or 4 nodules with additional imaging findings that increase the suspicion of lung cancer, such as spiculation, GGN that doubles in size in 1 year, enlarged lymph notes, etc. Category Modifiers: S (significant finding unrelated to lung cancer) and C (prior history of treated lung cancer) may be added to the 0-4 Lung-RADS Electronically Signed: Zaid Justice, at 11:07 EDT , Service support ,
== END ==
PROVIDERS: Family Provider Family Medicine; PCP Family Medicine; Referring Provider Nurse Practitioner Acute Care; Visit Provider Nurse Practitioner Acute Care
DX: F17.200 Nicotine dependence, unspecified, uncomplicated (principal)
CPT/HCPCS: G0297

== ENCOUNTER → 2019-06-07 07:46 | Outpatient (CLI) | payer MEDICAID, SELFPAY ==
[2019-05-13 13:34] VITALS: BMI 15.5
--- NOTE | 2019-06-07 08:55 | PFT ---
INTRODUCTION: The patient is a 54-year-old female that presents for pulmonary function studies secondary to a diagnosis of COPD. Respiratory therapy reports good patient effort. Bronchodilators were used during testing. INTERPRETATION: Forced expiration spirometry demonstrates the presence of a severe large airways obstructive ventilatory defect. There was a significant response to aerosolized bronchodilators noted, based upon change noted in FVC. Spirograms are of fair quality and do not plateau indicating slow emptying of the lungs. Body plethysmography was performed and reveals a decrease TLC to 3.69 L, 78% of predicted, indicative of a mild restrictive ventilatory impairment. The remainder of the lung volumes are symmetrically reduced. Diffusing capacity by single breath CO is reduced at 53% of predicted. When compared to previous pulmonary function studies from February 2019, there has been a 9% decrease in FEV1, 28% decrease in total lung capacity and 22% decrease in DLCO. IMPRESSION: Partially reversible severe mixed ventilatory defect with moderate reduction in diffusing capacity. There have been significant changes in the patient's pulmonary function studies since February 2019, as noted above.
== END ==
PROVIDERS: Family Provider Family Medicine; PCP Family Medicine; Referring Provider Nurse Practitioner Acute Care; Visit Provider Nurse Practitioner Acute Care
DX: J44.9 Chronic obstructive pulmonary disease, unspecified (principal)
CPT/HCPCS: 94060; 94726; 94729

== ENCOUNTER 2019-07-16 15:08 | Emergency (ER) | payer MEDICAID, SELFPAY ==
[2019-07-12 09:44] VITALS: BMI 15.5
[2019-07-16] VITALS (7 sets, daily range): BP systolic 146–157; BP diastolic 74–102; PULSE 87–97; RESP 15–18; TEMP 37.1; O2SAT 97–99; BMI 18.1
[2019-07-16] MEDS: 0.9% Normal Saline 1,000 ML 1000 ML IV (15:44)
[2019-07-16] MEDS: Ketorolac 30 MG/ML Syringe IV (15:44)
[2019-07-16] MEDS: Dicyclomine 20 MG/2 ML Vial IM (15:46)
[2019-07-16 15:59] LABS: Absolute Lymphocyte Count 3.18 X10^3/uL (0.83-4.51); Absolute Neutrophil Count 7.9 X10^3/uL (2.0-7.7); Basophil# 0.11 X10^3/uL; Basophil% 0.9 % (0-1); Eosinophil# 0.33 X10^3/uL; Eosinophils% 2.7 % (0-5); Hematocrit 44.1 % (37-47); Hemoglobin 14.4 g/dL (12.0-15.0); Lymphocyte # 3.18 X10^3/ul (4.0); Lymphocyte % 25.9 % (19-41); Mean Corp Hgb Conc 32.7 g/dL (32-36); Mean Corpuscular Hgb 29.5 pg (27.0-32.0); Mean Corpuscular Volume 90.4 fL (81-99); Mean Platelet Vol. 10.2 fl (6.2-12.0); Monocyte# 0.67 X10^3/uL; Monocyte% 5.5 % (0-10); NRBC Flagged by Analyzer 0 % (0-5); Neutrophil # 7.93 X10^3/uL (2.7-7.7); Neutrophil % 64.5 % (47-70); Platelet Count 316 K/mm3 (150-450); RBC Distribution Width CV 13.2 % (11.6-14.6); RBC Distribution Width SD 43.9 fl (35.1-43.9); Red Blood Count 4.88 M/mm3 (4.2-5.4); White Blood Count 12.3 K/mm3 (4.4-11.0)
[2019-07-16 16:03] LABS: Bacteria 0 SEEN /hpf (None Seen); Mucous, Urine 0 SEEN /hpf (<or=2+); Red Blood Cells-Urine 0 SEEN /hpf (0-5)
[2019-07-16 16:05] LABS: Color, Urine Yellow (Yellow); Glucose, Dipstick Normal (Normal); Ketone-Dipstick Negative (Negative); Leukocyte Esterase-Dipstick 25 /ul (Negative); Nitrite-Dipstick Negative (Negative); Occult Blood-Urine Negative /ul (Negative); Protein-Dipstick Negative (Negative); Specific Gravity, Urine 1.015 (1.002-1.030); Urine Bilirubin Dipstick Negative (Negative); Urine Clarity Clear (Clear); Urine Urobilinogen Normal (Normal)
[2019-07-16 16:10] LABS: AST(SGOT) 16 U/L (15-37); Alanine Aminotransfer ALT/SGPT 19 U/L (13-56); Albumin, Serum 3.7 g/dL (3.2-5.0); Alkaline Phosphatase 115 U/L (45-117); Anion Gap 6 (5-15); BUN 8 mg/dL (7-18); BUN/Creat Ratio 13.7 RATIO (10-20); Calcium,Total 9.2 mg/dL (8.5-10.1); Chloride 101 mmol/L (98-107); Creatinine, Serum 0.58 mg/dL (0.55-1.02); EST Glomerular Filtration Rate 114 mL/min (>60); Est Glom Filt Rate - Afr Amer 138 mL/min (>60); Estimated Creatinine Clearance 79.68 ml/min; Globulin 3.8 g/dL (2.2-4.2); Glucose 118 mg/dL (74-106); Lipase 538 U/L (73-393); Potassium 3.5 mmol/L (3.5-5.1); Protein, Total 7.5 g/dL (6.4-8.2); Sodium Level 133 mmol/L (136-145)
--- NOTE | 2019-07-16 16:26 | ED.VISSUMM ---
- ER Visit Summary Date of Service: 07/16/19 Chief Complaint: Abdominal pain History of Present Illness: The patient is a [address] Bernard Galan and Dr. Lopez. She reports that she has diffuse abdominal pain that began months ago. It is been constant for the past 2 weeks. Some aching pain is 10-10 worsened to 10 currently. Is worsened by sleeping. It is relieved by movement and housework. Denies any nausea, vomiting, or diarrhea. Her last bowel was today. No melena or hematochezia. No dysuria or frequency. Patient saw Dr. Lopez 5 days ago and had an ultrasound that was unremarkable. She had a colonoscopy and endoscopy 2 years ago. She reports that she is had blood work for this as well. She has an appointment to see Dr. Bernard Galan in 3 days. She denies any fever, chills, or other complaints. Physical Examination: Vitals: Stable. Afebrile. General: Well-nourished and well-developed. Head: Normocephalic atraumatic. Neck: Supple, no lymphadenopathy. No JVD. Nontender. Cardiovascular: Regular rate and rhythm. No murmurs. Respiratory: No respiratory distress. Clear to auscultation bilaterally. Abdominal: Soft, mild diffuse tenderness to palpation, nondistended, normal bowel sounds. No guarding, rebound, or peritoneal signs. Back: Nontender. Extremities: Nontender, no edema. Skin: Normal color, no rash. Neurologic: Alert and oriented ?3. Cranial nerves II through XII are intact. Normal strength and sensation. Psych: Normal affect. Test Results: CBC shows white count 12.3. Chem-7 shows a sodium 133 and glucose 118. LFTs are normal. Lipase is elevated at 538. Review of the record shows her lipase is ranged from 1 82-1359 2019. Her last was 377 in March. UA is negative. Emergency Department Course and Treatment: Patient was treated with Toradol IV and Bentyl IM. She reports that she feels much improved. Treatment Plan: Patient's lipase is minimally elevated. She has diffuse pain. I do not think that pancreatitis is the explanation of her pain. She will be discharged with Bentyl. Instructed to follow-up Dr. Bernard Galan in 3 days as previously scheduled. Return to the emergency department for any worsening symptoms. Disposition: To home in improved and stable condition. Impression: 1. Abdominal pain, chronic. 2. Lipase of 538. This note was generated with [employer] dictation software. It may contain incorrect words, spelling, and punctuation that were not noted in review of the chart prior to signing ED Disposition - Plan for ED Patient: Instructions: ABDOMINAL PAIN, Unknown Cause, (Female) Prescriptions: Dicyclomine HCl [Bentyl] 20 mg PO TIDAC #20 capsule Ondansetron [Zofran Odt] 4 mg PO Q8H PRN PRN #10 tablet PRN Reason: Nausea Referrals: Bernard Galan III, MD [Primary Care Provider] - Keep Malachi appointment
[2019-07-16 16:28] LABS: Squamous Epithelial Cells - UA 0-5 SEEN /hpf (5-10); White Blood Cells 0-5 SEEN /hpf (0-5)
== END 2019-07-16 17:30 | disposition home or self-care (01) ==
LOC: ED 15:32
PROVIDERS: Emergency Provider Emergency Medicine; Family Provider Family Medicine; PCP Family Medicine
DX: R10.9 Unspecified abdominal pain (principal); G89.29 Other chronic pain; R05 Cough; J44.9 Chronic obstructive pulmonary disease, unspecified; K21.9 Gastro-esophageal reflux disease without esophagitis; F17.210 Nicotine dependence, cigarettes, uncomplicated
CPT/HCPCS: 80053; 81001; 83690; 85025; 96361; 96372; 96374; 99285; J7030

== ENCOUNTER 2019-12-10 06:55 | Emergency (ER) | payer MEDICAID, SELFPAY ==
[2019-09-26 07:25] VITALS: BMI 19.3
[2019-12-10] VITALS (7 sets, daily range): BP systolic 144–219; BP diastolic 78–100; PULSE 100–110; RESP 18–28; TEMP 36.4–37.1; O2SAT 94–98; BMI 21.2
--- NOTE | 2019-12-10 07:22 | EKG12_ITS ---
Test Reason : Blood Pressure : / mmHG Vent. Rate : 096 BPM Atrial Rate : 096 BPM P-R Int : 178 ms QRS Dur : 066 ms QT Int : 356 ms P-R-T Axes : 061 081 074 degrees QTc Int : 449 ms Normal sinus rhythm Normal ECG Confirmed by WILY YATES ([id number]), editorial project manager QUETA REYNOSO ([id number]) on 12/15/2019 9:19:25 AM Referred By: JAMES Confirmed By:WILY YATES
--- NOTE | 2019-12-10 07:24 | ED.VIS.GEN ---
History of Present Illness Chief Complaint: Shortness of Breath Informant: Patient Onset: Weeks Maximum Severity: Mild Narrative: Long history of COPD home O2 as needed, presents complaining of cough and shortness of breath for over a week, she is out of her nebulizer medications, she is had COVID19 exposures her health is otherwise been stable she does indicate that she struck her left foot against an object of some pain over the fourth and fifth toes doing well at home Past Medical History - Allergies and Home Meds Allergies/Adverse Reactions: Allergies Penicillins Allergy (Verified 12/10/19 06:59) Hives Primary Care Physician: Bernard Galan III, MD [Primary Care Provider] - Past Medical History: - Surgical History: no surgical history, - - Tubal ligation Smoking Status: Current every day smoker - Family History Maternal Family History: Family History (Last Reviewed 09/26/19 @ 11:22 by Brandi Lester) Mother Diabetes Hypertension Heart disease High cholesterol Arthritis Thyroid disorder Brother Hypertension Sister Cancer Thyroid disorder Father Kidney disease Daughter Thyroid disorder Family History: Reports: No pertinent history, - Review of Systems ROS: - The OPD and as above General: Denies: Chills, Fever, Sweats Eyes: Denies: Visual changes - bilaterally, Diplopia ENT: Denies: Rhinorrhea, Sore throat Cardiovascular: Denies: Chest pain, Palpitations Respiratory: Reports: Dyspnea, Cough. Denies: Dyspnea on exertion Gastrointestinal: Denies: Abdominal pain, Nausea, Vomiting, Diarrhea, Melena, Hematochezia Genitourinary: Denies: Dysuria, Hematuria, Frequency Musculoskeletal: Reports: Extremity Pain. Denies: Back pain Skin: Denies: Rash, Wounds Neurological: Denies: Headache, Weakness, Numbness Physical Exam Vital Signs/Narrative: Vital Signs Temp Pulse Resp BP Pulse Ox 12/10/19 07:08 97.5 F L 110 H 20 H 189/100 H 98 12/10/19 06:55 97.5 F L 107 H 28 H 219/89 H 95 General: Well nourished, Well developed, No Acute Distress Head: Normocephalic, Atraumatic Eyes: Perrl, EOMI ENT: Moist mucous membranes, No rhinorrhea Neck: Supple, Nontender Cardiovascular: Regular rate, Regular rhythm, No murmurs Respiratory: No distress, Chest nontender, Rhonchi, Decreased Air Movement Abdomen: Soft, Nontender, Nondistended, Normal bowel sounds Back: Nontender, Normal Inspection Extremities: Nontender, No edema, - - She has some discomfort over the fourth and fifth toes midfoot ankle unremarkable plantar surface unremarkable dorsi and plantar flexion toe movement normal skin intact Skin: Normal color, No rash Neurological: Alert, Oriented x3, Cranial nerves II-XII grossly intact, Normal Strength, Normal Sensation Psychological: Normal affect, Normal Mood Diagnostic/Tx/Re-eval - Medical Decision Making Screening evaluation is obtained His white count is 21,000, the rest the labs including lactate are negative, EKG shows sinus rhythm rate of about 96 no acute injury pattern appreciated, chest x-ray per radiology shows bibasilar infiltrates, Patient is feeling better her vital signs are unremarkable discussed inpatient versus outpatient management she does not wish to be admitted please note she is had no fever no exposures to coronavirus per screening tools Given all the above given that we are currently in the midst of the flu season, we are currently under national emergency for coronavirus, spoke with Dr. Sebastian on-call for pulmonary the patient does not meet criteria at this time to be tested for coronavirus, the patient wants to go home she feels better at this time we will obtain viral panel, flu panel rapid, she will be started on IV Levaquin, discharged on p.o. Levaquin, and she will follow-up in the office on Thursday, the viral panels can take days to run per staff and the patient was informed of the above she will basically self quarantine herself at home as a precaution and contact the office for follow-up if her viral panels are abnormal she will be contacted per staff Home stable declined admission Impression final exacerbation of COPD, bibasilar infiltrates, ED Disposition - Plan for ED Patient: Diagnosis: Pneumonia Instructions: BRONCHITIS, Antiobiotic Treatment (Adult), Copd Flare, PNEUMONIA (Adult) Prescriptions: Levofloxacin [Levaquin] 750 mg PO DAILY #7 tab Prescription Printed Albuterol Aerosols [Ventolin Aerosols] 2.5 mg INHALATION Q4H PRN #25 vial Prescription Printed Albuterol Inhaler [Ventolin Hfa] 1 - 2 puff INHALATION Q4H PRN PRN #1 inhaler PRN Reason: Wheezing Prescription Printed Referrals: Bernard Galan III, MD [Primary Care Provider] - Additional Instructions: Please stay at home do not contact others, follow social isolation policies until you are contacted related to the viral test done, call Dr. Perdue's office to obtain follow-up appointment instructions on Thursday return for change in symptoms
--- NOTE | 2019-12-10 07:32 | RAD_ITS ---
STUDY: X-RAY CHEST REASON FOR EXAM: Female, 54 years old. SOB; -- COPD/EMPHYSEMA TECHNIQUE: PA and lateral views of the chest. COMPARISON: April 25, 2013 chest x-ray FINDINGS: Allowing for overlying breast soft tissue there is increased density in the lung bases. The lateral view demonstrates curvilinear calcification overlying the posterior cardiac border. There is no demonstrated pleural abnormality. Normal size heart. Normal mediastinum and augusta. Normal visualized pulmonary arteries. There is atherosclerotic calcification of the aortic arch with tortuosity. Normal visualized thoracic spine. Normal visualized ribs, clavicles, and shoulders. There is no demonstrated abnormality of the visualized soft tissue structures of the upper abdomen. RAD/Chest PA and Lateral IMPRESSION: Curvilinear cardiac suggests mitral valve calcification. Since prior study there is development of bilateral patchy lower lobe linear densities not seen on prior study suspicious for atelectasis and/or developing pneumonia. Electronically Signed: Rosmery Moreira MD at 8:20 EDT Tel , Service support ,
[2019-12-10 07:36] LABS: Absolute Lymphocyte Count 2.87 X10^3/uL (0.83-4.51); Absolute Neutrophil Count 15.9 X10^3/uL (2.0-7.7); Basophil# 0.15 X10^3/uL; Basophil% 0.7 % (0-1); Eosinophil# 0.56 X10^3/uL; Eosinophils% 2.6 % (0-5); Hematocrit 43.3 % (37-47); Hemoglobin 13.8 g/dL (12.0-15.0); Lymphocyte # 2.87 X10^3/ul (4.0); Lymphocyte % 13.4 % (19-41); Mean Corp Hgb Conc 31.9 g/dL (32-36); Mean Corpuscular Hgb 28.4 pg (27.0-32.0); Mean Corpuscular Volume 89.1 fL (81-99); Mean Platelet Vol. 10.6 fl (6.2-12.0); Monocyte# 1.81 X10^3/uL; Monocyte% 8.5 % (0-10); NRBC Flagged by Analyzer 0 % (0-5); Neutrophil # 15.89 X10^3/uL (2.7-7.7); Neutrophil % 74.3 % (47-70); POSITIVE DIFFERENTIAL YES; Platelet Count 306 K/mm3 (150-450); RBC Distribution Width CV 13.7 % (11.6-14.6); RBC Distribution Width SD 44.6 fl (35.1-43.9); Red Blood Count 4.86 M/mm3 (4.2-5.4); White Blood Count 21.4 K/mm3 (4.4-11.0)
--- NOTE | 2019-12-10 07:42 | RAD_ITS ---
STUDY: X-RAY - LEFT FOOT CLINICAL: Female, 54 years old. PAIN, WORSE IN TOES, S/P INJURY TECHNIQUE: 3 view(s) of the foot. COMPARISON: None. FINDINGS: There is an Achilles spur. Normal visualized subtalar, talonavicular, calcaneocuboid, tarsal and tarsometatarsal articulations. Normal metatarsi. Normal metatarsophalangeal joint of the great toe. Normal tibial and fibular sesamoid bones. Normal interphalangeal joint of the great toe. Normal phalanges of the great toe. Normal second through fifth metatarsophalangeal joints. There is mild degenerative change at the fifth proximal interphalangeal joint. The soft tissue structures are unremarkable. RAD/Foot min 3 Views IMPRESSION: Achilles spur. No visualized fracture. Electronically Signed: Rosmery Moreira MD at 8:18 EDT Tel , Service support ,
[2019-12-10 07:49] LABS: Differential Indicated SCAN CRITERIA MET
[2019-12-10 07:52] LABS: Anion Gap 6 (5-15); BUN 6 mg/dL (7-18); Calcium,Total 9.3 mg/dL (8.5-10.1); Chloride 103 mmol/L (98-107); Creatinine, Serum 0.66 mg/dL (0.55-1.02); EST Glomerular Filtration Rate 97 mL/min (>60); Est Glom Filt Rate - Afr Amer 118 mL/min (>60); Estimated Creatinine Clearance 78.73 ml/min; Glucose 88 mg/dL (74-106); Potassium 4.1 mmol/L (3.5-5.1); Sodium Level 138 mmol/L (136-145)
[2019-12-10] MEDS: Ipratropium/Albuterol Sulfate 3 ML AMPUL.NEB INHALATION ×2 (07:56→08:51)
[2019-12-10 08:14] LABS: BNP,B-Type NATRIURETIC PEPTIDE 71.9 pg/mL (0-100)
[2019-12-10 08:16] LABS: Differential Comment SCANNED
[2019-12-10 09:31] LABS: Lactic Acid 1.8 mmol/L (0.4-1.9)
[2019-12-10] MEDS: levoFLOXacin IV 750 MG/150 ML BAG 100 MG IV (10:03)
--- NOTE | 2019-12-10 12:04 | ED.RN ---
THIS RN DISCUSSED WITH PT ABOUT PNEUMONIA . PT HAD MULTIPLE QUESTIONS RELATED TO CORONAVIRUS. PT NOT UNDERSTANDING ELF QUARANTINE AND WHY. PT PROVIDED WITH INFORMATION. AWARE TO CONTACT DR COYLE S OFFICE ON THURSDAY
[2019-12-12 10:48] LABS: Pathologist Review Reviewed
== END 2019-12-10 12:10 | disposition home or self-care (01) ==
LOC: ED 07:15
PROVIDERS: Emergency Provider Emergency Medicine; PCP Family Medicine
DX: J18.9 Pneumonia, unspecified organism (principal); J44.1 Chronic obstructive pulmonary disease with (acute) exacerbation; F17.200 Nicotine dependence, unspecified, uncomplicated; Z82.49 Family history of ischemic heart disease and other diseases of the circulatory system; Z88.0 Allergy status to penicillin
CPT/HCPCS: 71046; 73630; 80048; 83605; 83880; 84484; 85025; 87633; 87804; 93005; 94640; 96365; 96366; 99283; J7050; A4216

== ENCOUNTER 2020-01-27 19:35 | Emergency (ER) | payer MEDICAID, SELFPAY ==
[2019-12-10 06:55] VITALS: BMI 21.2
[2020-01-27 19:36] VITALS: BP 95/75; PULSE 113; RESP 15; TEMP 36.8; O2SAT 93; BMI 21.9
[2020-01-27] MEDS: 0.9% Normal Saline 1,000 ML 999 ML IV (20:17)
--- NOTE | 2020-01-27 20:31 | ED.VISSUMM ---
- ER Visit Summary Date of Service: 01/27/20 Chief Complaint: Cough History of Present Illness: The patient is a [address] Bernard Galan. She reports has had a cough ever since December 04. She was seen at that time and was diagnosed with pneumonia. She was placed on Levaquin. She reports that her cough improved, but never resolved. Productive white sputum without blood. She is had chills, but no fever. She reports she has mild shortness of breath currently and moderate worse. This is relieved with her inhalers. She reports she sets her episodes of diarrhea today. No blood in her stools or black tarry stools. On review of systems patient does complain of generalized weakness. She also reports she is lightheaded. This gets worse when she stands. She has not passed out. Physical Examination: Vitals: 90.3, 95/75, 113, 15, 97% on room air which is not hypoxic. General: Well-nourished and well-developed. Head: Normocephalic atraumatic. Neck: Supple, no lymphadenopathy. No JVD. Nontender. Cardiovascular: Regular rate and rhythm. No murmurs. Respiratory: No respiratory distress. Clear to auscultation bilaterally. Abdominal: Soft, nontender, nondistended, normal bowel sounds. No guarding, rebound, or peritoneal signs. Back: Nontender. Extremities: Nontender, no edema. Skin: Normal color, no rash. Neurologic: Alert and oriented ?3. Cranial nerves II through XII are intact. Normal strength and sensation. Psych: Normal affect. Test Results: CBC shows a white count of 13.6. Chem-7 shows a BUN of 6 and glucose 107. Lactic acid is normal. Clinical Impression(s) from Imaging Studies Chest X-Ray 01/27/20 20:40 IMPRESSION: Minor scarring or discoid atelectasis left lower lobe. No gross infiltration with improved aeration since previous exam Electronically Signed: Alden Nicole MD at 21:05 EDT , Service support , Emergency Department Course and Treatment: Patient was given a liter of normal saline. She is resting comfortably. Treatment Plan: Patient will be discharged on doxycycline and prednisone. She given first dose of each here in the emergency department. Instructed to follow with her primary care physician 1 week if not improving. Return to the emergency department for any worsening symptoms. Disposition: To home in improved and stable condition. Impression: 1. COPD exacerbation. This note was generated with [employer] dictation software. It may contain incorrect words, spelling, and punctuation that were not noted in review of the chart prior to signing ED Disposition - Plan for ED Patient: Instructions: ED COPD Flare Prescriptions: Prednisone [Deltasone] 40 mg PO DAILY #10 tablet Doxycycline 100 mg PO BID #14 capsule Referrals: Brenard Galan III, MD [Primary Care Provider] - 3-5 Days if not improving
--- NOTE | 2020-01-27 20:40 | RAD_ITS ---
STUDY: X-RAY CHEST REASON FOR EXAM: Female, 54 years old. C/O DIZZINESS, COUGH, SOB and amp; ANXIETY. RECENT PNEUMONIA TECHNIQUE: AP portable COMPARISON: December 10, 2019 FINDINGS: Minor discoid atelectasis or scarring in left lower lobe.. There is no demonstrated pleural abnormality. Normal size heart. Normal mediastinum and augusta. Normal visualized pulmonary arteries. Mildly calcified aortic arch and descending thoracic aorta. Dorsal spine demonstrates degenerative change. Normal visualized ribs, clavicles, and shoulders. There is no demonstrated abnormality of the visualized soft tissue structures of the upper abdomen. There is improved aeration of both lower lobes since previous study. RAD/Chest 1 View (Portable) IMPRESSION: Minor scarring or discoid atelectasis left lower lobe. No gross infiltration with improved aeration since previous exam Electronically Signed: Alden Nicole MD at 21:05 EDT , Service support ,
[2020-01-27 20:42] LABS: Absolute Lymphocyte Count 4.49 X10^3/uL (0.83-4.51); Absolute Neutrophil Count 7.2 X10^3/uL (2.0-7.7); Basophil# 0.13 X10^3/uL; Eosinophil# 0.64 X10^3/uL; Eosinophils% 4.7 % (0-5); Hematocrit 39.2 % (37-47); Hemoglobin 12.6 g/dL (12.0-15.0); Lymphocyte # 4.49 X10^3/ul (4.0); Lymphocyte % 32.9 % (19-41); Mean Corp Hgb Conc 32.1 g/dL (32-36); Mean Corpuscular Hgb 27.4 pg (27.0-32.0); Mean Corpuscular Volume 85.2 fL (81-99); Mean Platelet Vol. 10.3 fl (6.2-12.0); Monocyte# 1.09 X10^3/uL; NRBC Flagged by Analyzer 0 % (0-5); Neutrophil # 7.22 X10^3/uL (2.7-7.7); Neutrophil % 52.9 % (47-70); POSITIVE MORPHOLOGY YES; Platelet Count 321 K/mm3 (150-450); RBC Distribution Width CV 13.1 % (11.6-14.6); RBC Distribution Width SD 40.9 fl (35.1-43.9); White Blood Count 13.6 K/mm3 (4.4-11.0)
[2020-01-27 21:00] LABS: Differential Indicated SCAN CRITERIA MET
[2020-01-27 21:01] LABS: Anion Gap 6 (5-15); BUN 6 mg/dL (7-18); BUN/Creat Ratio 9.5 RATIO (10-20); Calcium,Total 9.1 mg/dL (8.5-10.1); Chloride 106 mmol/L (98-107); Creatinine, Serum 0.63 mg/dL (0.55-1.02); EST Glomerular Filtration Rate 104 mL/min (>60); Est Glom Filt Rate - Afr Amer 126 mL/min (>60); Estimated Creatinine Clearance 82.48 ml/min; Glucose 107 mg/dL (74-106); Potassium 3.5 mmol/L (3.5-5.1); Sodium Level 139 mmol/L (136-145)
[2020-01-27 21:04] LABS: Lactic Acid 1.3 mmol/L (0.4-1.9)
[2020-01-27 21:14] LABS: Platelet Estimate ADEQUATE (ADEQ)
[2020-01-27 21:15] LABS: Red Cell Morphology NORM C+C NORMAL (NORM C&C)
[2020-01-27 21:20] VITALS: BP 143/89; PULSE 97; RESP 18; O2SAT 95
[2020-01-27] MEDS: Doxycycline 100 MG CAPSULE PO (21:27)
[2020-01-27] MEDS: predniSONE 20 MG Tablet 40 MG PO (21:27)
== END 2020-01-27 21:46 | disposition home or self-care (01) ==
LOC: ED 20:56
PROVIDERS: Emergency Provider Emergency Medicine; PCP Family Medicine
DX: J44.1 Chronic obstructive pulmonary disease with (acute) exacerbation (principal); I10 Essential (primary) hypertension; R19.7 Diarrhea, unspecified; R53.1 Weakness; F17.210 Nicotine dependence, cigarettes, uncomplicated; Z87.01 Personal history of pneumonia (recurrent)
CPT/HCPCS: 71045; 80048; 83605; 85025; 87040; 96360; 99285; J7030; A4216

== ENCOUNTER → 2020-03-28 07:05 | Outpatient (CLI) | payer MEDICAID, SELFPAY ==
[2019-09-26 07:25] VITALS: BMI 19.3
--- NOTE | 2020-03-28 14:15 | PFT_ITS ---
INTRODUCTION: The patient is a 54-year-old female that presents for pulmonary function studies secondary to a diagnosis of asthma. Respiratory therapy reports good patient effort. Bronchodilators were used during testing. INTERPRETATION: Forced expiration spirometry demonstrates the presence of a very severe large airways obstructive ventilatory defect. There was a significant response to aerosolized bronchodilators noted. Spirograms are of fair quality and do not plateau indicating slow emptying of the lungs. Body plethysmography was performed and revealed an elevated TLC and RV, indicative of underlying hyperinflation and air trapping. Diffusing capacity by single breath CO is reduced at 45% of predicted. When compared to pulmonary function studies from [facility] 2018, there has been a 20% reduction in FEV1. IMPRESSION: Partially reversible very severe large airways obstructive ventilatory defect with associated hyperinflation, air trapping and symmetric reduction in diffusing capacity. There has been worsening in the patient's FEV1 since May 2019 as noted above.
== END ==
PROVIDERS: Family Provider Family Medicine; PCP Family Medicine; Referring Provider Internal Medicine Critical Care Medicine; Visit Provider Internal Medicine Critical Care Medicine
DX: J44.9 Chronic obstructive pulmonary disease, unspecified (principal); J45.909 Unspecified asthma, uncomplicated
CPT/HCPCS: 94060; 94726; 94729

== ENCOUNTER → 2020-04-03 07:59 | Outpatient (CLI) | payer MEDICAID, SELFPAY ==
[2019-09-26 07:25] VITALS: BMI 19.3
[2020-04-03 08:23] VITALS: PULSE 115; PULSE 116; PULSE 119; PULSE 123; PULSE 124; PULSE 126; PULSE 129; O2SAT 87; O2SAT 90; O2SAT 92; O2SAT 93; O2SAT 95
--- NOTE | 2020-04-03 08:29 | CPS ---
Patient came in on room air but states that she has an oxygen concentrator at home and that she wears oxygen when she needs it. She has a pulse oximeter at home and monitors her SpO2 occasionally. At the 2nd minute, SpO2 dropped to 87%, placed patient on 2 lpm O2 and she recovered to 93%. Patient walked the rest of the 6 minutes on 2 lpm O2, maintaining Sat's at 92% and above. Patient states she has an appointment with Dr. Perdue on .
--- NOTE | 2020-04-03 14:13 | PCM.PSN.6M ---
PSN 6 Minute Walk Test - 6 Minute Walk Test 6 Minute Walk Test: 6 Minute Walk Test PSN:6-Minute Walk Test Start: 04/03/20 08:23 Freq: Status: Active Protocol: RESP.6MINW Document 04/03/20 08:23 AMANDA (Rec: 04/03/20 08:33 AMANDA [id number]) 6 Minute Walk Test Date Performed 04/03/20 Time Performed 08:00 Height 5 ft 3 in Weight: 53.977 kg Weight in Pounds 119.[address]: Freddie Perdue Assistive device used: None Pre-test Oxygen Delivery Method Room Air Pulse Ox (%) 92 Pulse Rate (60-100 beats/min) 116 H Dyspnea Nallely Scale (0-10) 0.5 Exertion Nallely Scale (6-20) 6 1st minute Oxygen Delivery Method Room Air Pulse Ox (%) 90 Pulse Rate (60-100 beats/min) 123 H 2nd minute Oxygen Delivery Method Room Air Pulse Ox (%) 87 Pulse Rate (60-100 beats/min) 129 H 3rd minute Oxygen Flow Rate (L/min) (L/min) 2 Oxygen Delivery Method Nasal Cannula Pulse Ox (%) 93 Pulse Rate (60-100 beats/min) 124 H 4th minute Oxygen Flow Rate (L/min) (L/min) 2 Oxygen Delivery Method Nasal Cannula Pulse Ox (%) 93 Pulse Rate (60-100 beats/min) 119 H 5th minute Oxygen Flow Rate (L/min) (L/min) 2 Oxygen Delivery Method Nasal Cannula Pulse Ox (%) 92 Pulse Rate (60-100 beats/min) 126 H 6th minute Oxygen Flow Rate (L/min) (L/min) 2 Oxygen Delivery Method Nasal Cannula Pulse Ox (%) 92 Pulse Rate (60-100 beats/min) 126 H Dyspnea Nallely Scale (0-10) 3 Exertion Nallely Scale (6-20) 12 Post-test Oxygen Flow Rate (L/min) (L/min) 2 Oxygen Delivery Method Nasal Cannula Pulse Ox (%) 95 Pulse Rate (60-100 beats/min) 115 H Full Laps Walked 14 Partial Lap, Number of Tiles Walked 26 Total Distance Walked (ft) 852 04/03/20 08:29 Cardiopulmonary Services by Sera Wilson Patient came in on room air but states that she has an oxygen concentrator at home and that she wears oxygen when she needs it. She has a pulse oximeter at home and monitors her SpO2 occasionally. At the 2nd minute, SpO2 dropped to 87%, placed patient on 2 lpm O2 and she recovered to 93%. Patient walked the rest of the 6 minutes on 2 lpm O2, maintaining Sat's at 92% and above. Patient states she has an appointment with Dr. Perdue on . Initialized on 04/03/20 08:29 - END OF NOTE - Interpretation Interpretation: The patient was noted to be 92% on room air. The patient did desaturate to 87% in the second minute, requiring 2 L/min to improve saturations to 93%. The patient was then able to finish ambulating. The patient was noted to be tachycardic throughout testing. In total, the patient was able to only travel 852 feet with no assistive devices and one break. These findings are consistent with a cardiopulmonary limitation exercise tolerance. - Recommendations Recommendations: The patient requires no supplemental oxygen at rest, but should be using 2 L nasal cannula with any exertion. Patient would also benefit from a cardiovascular evaluation.
== END ==
PROVIDERS: Family Provider Family Medicine; PCP Family Medicine; Referring Provider Internal Medicine Critical Care Medicine; Visit Provider Internal Medicine Critical Care Medicine
DX: J44.9 Chronic obstructive pulmonary disease, unspecified (principal); J45.909 Unspecified asthma, uncomplicated
CPT/HCPCS: 94618

== ENCOUNTER → 2020-04-04 10:00 | Outpatient (CLI) | payer MEDICAID, SELFPAY | PROVIDERS: Anesthesiology; PCP Family Medicine; Referring Provider Obstetrics & Gynecology; Visit Provider Obstetrics & Gynecology | DX: Z11.59 Encounter for screening for other viral diseases (principal) | CPT/HCPCS: 87635; G2023; U0003 ==

== ENCOUNTER → 2020-05-10 12:41 | Outpatient (CLI) | payer MEDICAID, SELFPAY ==
[2020-04-05 07:36] VITALS: BMI 22.8
--- NOTE | 2020-05-10 12:42 | CT_ITS ---
STUDY: LOW DOSE CT LUNG CANCER SCREENING REASON FOR EXAM: Female, 55 years old. SMOKING and gt; 30 PACK YEARS. 1 PPD X 43 YEARS. ASTHMA, COPD RADIATION DOSAGE (If Supplied By Facility): CTDIvol = ( 1.70 ) mGy, DLP = ( 61.68 ) mGycm TECHNIQUE: No contrast was administered. Low dose technique was utilized (average mAS-38 and kVp 120). 1.25 mm axial source images with a slice interval of 1.25-mm were reconstructed in lung windows. 2.5 mm axial source images with a slice interval of 2.5-mm were reconstructed in lung windows. 5.0 mm axial source images with a slice interval of 5.0-mm were reconstructed in soft tissue windows. Nodule measured using lung windows on PACS and/or independent workstation with automated measurement of minimum and maximum diameter. Nodule measurement reported as average diameter rounded to the nearest whole number. Growth is defined as an increase ins size of greater than 1.5 mm. COMPARISON: Comparison is made with prior examination dated 05/31/2019. NODULES: No suspicious nodules are seen. Emphysema: Hyperinflation. Stable emphysematous changes more pronounced in the upper lobes. Minimal scarring in the lingular segment of the left upper lobe. Endobronchial lesion: Aorta: Coronary arteries: Coronary artery calcification. Prior mitral valve replacement. Mediastinal nodes: Small benign-appearing mediastinal lymph nodes. Other chest and abdominal findings: Degenerative changes of the thoracic vertebra. CT/Low Dose CT Lung Screening IMPRESSION: Lung-RADS category 2 - Continue annual screening with LDCT in 12 months. IMPORTANT NOTES FOR USE: ACR Lung-RADS Version 1.0 Assessment Categories Release Date: January 23, 2014 Category: Coded 0-4 bases on nodule(s) with highest degree of suspicion. Negative screen is defined as categories 1 and 2; a positive screen is defined as categories 3 and 4. Category 3 and 4A nodules that are unchanged on interval CT should be coded as category 2, and individuals returned to screening in 12 months. Category 4X: Category 3 or 4 nodules with additional imaging findings that increase the suspicion of lung cancer, such as spiculation, GGN that doubles in size in 1 year, enlarged lymph notes, etc. Category Modifiers: S (significant finding unrelated to lung cancer) and C (prior history of treated lung cancer) may be added to the 0-4 Lung-RADS Electronically Signed: Zaid Justice, at 13:15 EDT , Service support ,
== END ==
PROVIDERS: PCP Family Medicine; Referring Provider Nurse Practitioner Acute Care; Visit Provider Nurse Practitioner Acute Care
DX: Z12.2 Encounter for screening for malignant neoplasm of respiratory organs (principal); F17.210 Nicotine dependence, cigarettes, uncomplicated
CPT/HCPCS: G0297

== ENCOUNTER 2020-07-31 17:00 | Emergency (ER) | payer MEDICAID, SELFPAY ==
[2020-07-19 08:32] VITALS: BMI 21.0
[2020-07-31 17:01] VITALS: BP 148/109; PULSE 108; RESP 20; TEMP 36.6; O2SAT 99; BMI 21.2
--- NOTE | 2020-07-31 17:16 | ED.DCSUM_ITS ---
History of Present Illness Chief Complaint: Shortness of Breath Informant: Patient Onset: Days Maximum Severity: Mild Narrative: Patient's chief complaint is a painful swollen area to the left lower pubic area that is been there for 4 days she has chronic shortness of breath that is not her chief complaint, the swollen swollen painful area has been come up in the past usually goes away it has not this time. She indicates she believes she has infections related to abnormal hair growth in that area of her body, she has no history of MRSA diabetes chronic skin infections or skin conditions. She has chronic COPD chronic cough chronic mucus production all of that is stable and unchanged, she has all of her COPD meds at home, she is had no exposures to coronavirus Past Medical History - Allergies and Home Meds Allergies/Adverse Reactions: Allergies Penicillins Allergy (Verified 07/31/20 17:01) Hives Primary Care Physician: Bernard Galan III, MD [Primary Care Provider] - Past Medical History: - - COPD and includes as above Surgical History: no surgical history, - - Tubal ligation Smoking Status: Current every day smoker - Family History Maternal Family History: Family History (Last Reviewed 07/19/20 @ 08:32 by Brandi Lester) Mother Diabetes Hypertension Heart disease High cholesterol Arthritis Thyroid disorder Brother Hypertension Sister Cancer Thyroid disorder Father Kidney disease Daughter Thyroid disorder Family History: Reports: No pertinent history, - Review of Systems General: Denies: Chills, Fever, Sweats Eyes: Denies: Visual changes - bilaterally, Diplopia ENT: Denies: Rhinorrhea, Sore throat Cardiovascular: Denies: Chest pain, Palpitations Respiratory: Reports: Dyspnea, Cough, - - Chronic cough and shortness of breath unchanged. Denies: Dyspnea on exertion Gastrointestinal: Denies: Abdominal pain, Nausea, Vomiting, Diarrhea, Melena, Hematochezia Genitourinary: Denies: Dysuria, Hematuria, Frequency Musculoskeletal: Denies: Back pain, Extremity Pain Skin: Reports: Wounds. Denies: Rash Neurological: Denies: Headache, Weakness, Numbness Physical Exam Vital Signs/Narrative: Vital Signs Temp Pulse Resp BP Pulse Ox 07/31/20 17:01 97.8 F 108 H 20 H 148/109 H 99 General: Well nourished, Well developed, No Acute Distress Head: Normocephalic, Atraumatic Eyes: Perrl, EOMI ENT: Moist mucous membranes, No rhinorrhea Neck: Supple, Nontender Cardiovascular: Regular rate, Regular rhythm, No murmurs Respiratory: No distress, CTA bilaterally, Chest nontender Abdomen: Soft, Nontender, Nondistended, Normal bowel sounds Back: Nontender, Normal Inspection Extremities: Nontender, No edema Skin: Normal color, - - Left lateral pubic area there is a 2 cm red tender slightly fluctuant area there is no subcu air or crepitance, there is no surrounding cellulitis, or lymphadenopathy the exam is otherwise grossly unremarkable she has no other lesions or areas of complaint, discussed the above with her discussed Neurological: Alert, Oriented x3, Cranial nerves II-XII grossly intact, Normal Strength, Normal Sensation Psychological: Normal affect, Normal Mood Diagnostic/Tx/Re-eval - Medical Decision Making Discussed all of the above the patient's chronic shortness of breath is unchanged she has had no exposures to coronavirus her physical exam is unremarkable except for the lesion to the left lower area as described above, At this time the area underwent sterile prep local anesthetic with lidocaine and was opened with production of of fluid, loculations broken down, irrigated, packing placed, fluid cultures obtained she will be started on Bactrim [place] as rescue medicine she will follow-up with her outpatient providers include Dr. Lopez who she seen in the past for surgical issues or her primary care office or return to the emergency department in 2 or 3 days for wound check, she will return sooner if there is any other problems or issues for further management provided wound care instructions, we did discuss her general health which she states has been basically stable she has all of her home meds related to her COPD that she can take she has follow-up provider she can see she understands the need to follow-up instructions she is able to execute all of her daily activities without difficulty Home stable Impression final 2 cm abscess left lower pubic area status post I&D ED Disposition - Plan for ED Patient: Diagnosis: 2 cm left groin abscess status post I&D Instructions: Abscess Drainage, ED Abscess Incision And Drainage Prescriptions: Smz/Tmp Ds [Bactrim Ds] 1 tab PO BID #14 tab Prescription Printed Hydrocodone Bitart/Apap 5-325 [[place] 5MG-325MG] 1 tab PO Q4H PRN PRN 2 Days #10 tab PRN Reason: Pain Prescription Printed Referrals: Bernard Galan III, MD [Primary Care Provider] -
[2020-07-31] MEDS: Smz/Tmp Ds Tablet 1 TABLET PO (18:15)
== END 2020-07-31 18:25 | disposition home or self-care (01) ==
LOC: ED 17:29
PROVIDERS: Emergency Provider Emergency Medicine; PCP Family Medicine
DX: L02.214 Cutaneous abscess of groin (principal); J44.9 Chronic obstructive pulmonary disease, unspecified; F17.200 Nicotine dependence, unspecified, uncomplicated; Z82.49 Family history of ischemic heart disease and other diseases of the circulatory system; Z88.0 Allergy status to penicillin
CPT/HCPCS: 10060; 87070; 87077; 87186; 87205; 99283

== ENCOUNTER 2020-08-02 15:25 | Emergency (ER) | payer MEDICAID, SELFPAY ==
[2020-08-02 15:26] VITALS: BP 116/51; PULSE 110; RESP 18; TEMP 36.2; O2SAT 96; BMI 21.0
--- NOTE | 2020-08-02 16:19 | ED.VISSUMM ---
- ER Visit Summary Date of Service: 08/02/20 Chief Complaint: Abscess History of Present Illness: The patient is a 55 F who presents with an abscess that has been getting worse over the past 1-1/2 weeks. Patient was seen here and had it drained. Patient states there was some packing placed into the wound. Patient states she was cleaning it yesterday and then noticed that the packing was not there anymore. Patient states the redness has been constant. Patient states that it is improving slightly. Patient admits to some persistent drainage. Patient denies any fevers or chills. Patient denies any nausea or vomiting. Physical Examination: Vital signs are stable. Patient is afebrile. Patient is in no acute distress. Skin is warm dry. There is erythema and mild tenderness in the pubic area. There is some purulent drainage noted from the abscess. It is still open. Abdomen is soft. Bowel sounds are normal. There is no tenderness. There is no inguinal lymphadenopathy. Heart was regular rate and rhythm. Lungs are clear and equal bilaterally. Cranial nerves II through XII are intact. There are no focal motor or sensory deficits. Emergency Department Course and Treatment: Bacitracin dressing was applied. The wound was cleaned and dressed. Patient was instructed to continue her antibiotics as prescribed. Patient was instructed to follow-up with her primary care physician tomorrow as scheduled or in 3 days. Patient understood and was agreeable with the plan. All questions were answered. Disposition: Discharge home Impression: Abdominal cellulitis This note was generated with [employer] dictation software. It may contain incorrect words, spelling, and punctuation that were not noted in review of the chart prior to signing ED Disposition - Plan for ED Patient: Disposition: Home or Assisted Living Diagnosis: Abdominal wall cellulitis Instructions: ED Cellulitis Referrals: Bernard Galan III, MD [Primary Care Provider] - Keep Malachi appointment
== END 2020-08-02 16:44 | disposition home or self-care (01) ==
LOC: ED 16:38
PROVIDERS: Emergency Provider Emergency Medicine; PCP Family Medicine
DX: L03.311 Cellulitis of abdominal wall (principal)
CPT/HCPCS: 99283

== ENCOUNTER 2020-08-12 11:12 | Emergency (ER) | payer MEDICAID, SELFPAY ==
[2020-08-12] VITALS (8 sets, daily range): BP systolic 117–179; BP diastolic 74–97; PULSE 95–114; RESP 16–24; TEMP 35.7; O2SAT 96–98; BMI 19.4
[2020-08-12] MEDS: Diphth,Pertuss(Acell),Tet Vac 0.5 ML Vial IM (11:29)
[2020-08-12] MEDS: LORazepam 1 MG Tablet PO ×2 (11:30→20:27)
--- NOTE | 2020-08-12 11:52 | ED.VISSUMM ---
- ER Visit Summary Date of Service: 08/12/20 Chief Complaint: Suicide attempt, bilateral wrist lacerations History of Present Illness: The patient is a 55 F who presents after a suicide attempt. She cut her bilateral wrists. She states no one cares about me. She then cut her wrist today and attempt to kill her self. She did drink a couple beers last night and one this morning. She does have history of depression and anxiety and is on medications. She denies ever being admitted to a psychiatric hospital before. Her last tetanus is unknown. Physical Examination: Vital signs reviewed. HEENT exam unremarkable. Heart is regular rate and rhythm without murmurs. Lungs are clear to auscultation. Abdomen is soft and nontender. Extremities reveal no edema. Skin exam shows multiple lacerations in the bilateral wrists. She has 2, 1 cm lacerations and one 2 cm laceration on the right wrist. Left wrist has 1 to centimeter laceration and one 3 cm laceration. Neurologic exam normal. Patient is a labile affect. She has poor insight and judgment. She does voice suicidal thoughts. Test Results: White blood cell count 12.4, sodium 135, creatinine 0.48. Tox screen shows cannabis. Alcohol level is 36 Emergency Department Course and Treatment: The patient's laceration was repaired. She had 4, 5-0 sutures placed in the right wrist with 1 suture placed in the 1 cm lacerations and 2 sutures placed in the 2 cm laceration. The left wrist had 7 sutures with 5 sutures in the 3 cm laceration and 2 in the 2 cm laceration. Her tetanus was updated. Treatment Plan: Patient was evaluated by crisis and she will need to be transferred to a psychiatric facility. Disposition: Transfer Impression: Suicide attempt, bilateral wrist lacerations, laceration repair by ED physician This note was generated with [employer] dictation software. It may contain incorrect words, spelling, and punctuation that were not noted in review of the chart prior to signing ED Disposition - Plan for ED Patient: Referrals: Bernard Galan III, MD [Primary Care Provider] -
[2020-08-12 12:10] LABS: Absolute Lymphocyte Count 2.94 X10^3/uL (0.83-4.51); Absolute Neutrophil Count 8.4 X10^3/uL (2.0-7.7); Basophil# 0.11 X10^3/uL; Basophil% 0.9 % (0-1); Eosinophil# 0.19 X10^3/uL; Eosinophils% 1.5 % (0-5); Hematocrit 39.7 % (37-47); Hemoglobin 12.5 g/dL (12.0-15.0); Lymphocyte # 2.94 X10^3/ul (4.0); Lymphocyte % 23.8 % (19-41); Mean Corp Hgb Conc 31.5 g/dL (32-36); Mean Corpuscular Hgb 24.4 pg (27.0-32.0); Mean Corpuscular Volume 77.4 fL (81-99); Mean Platelet Vol. 10.4 fl (6.2-12.0); Monocyte# 0.66 X10^3/uL; Monocyte% 5.3 % (0-10); NRBC Flagged by Analyzer 0 % (0-5); Neutrophil # 8.38 X10^3/uL (2.7-7.7); Neutrophil % 67.8 % (47-70); POSITIVE MORPHOLOGY YES; Platelet Count 381 K/mm3 (150-450); RBC Distribution Width CV 20.2 % (11.6-14.6); RBC Distribution Width SD 56.3 fl (35.1-43.9); Red Blood Count 5.13 M/mm3 (4.2-5.4); White Blood Count 12.4 K/mm3 (4.4-11.0)
[2020-08-12 12:18] LABS: Anion Gap 6 (5-15); BUN 6 mg/dL (7-18); BUN/Creat Ratio 12.6 RATIO (10-20); Calcium,Total 9.1 mg/dL (8.5-10.1); Chloride 106 mmol/L (98-107); Creatinine, Serum 0.48 mg/dL (0.55-1.02); EST Glomerular Filtration Rate 143 mL/min (>60); Est Glom Filt Rate - Afr Amer 173 mL/min (>60); Estimated Creatinine Clearance 101.46 ml/min; Glucose 79 mg/dL (74-106); Potassium 3.8 mmol/L (3.5-5.1); Sodium Level 135 mmol/L (136-145)
[2020-08-12 12:38] LABS: Differential Indicated SCAN CRITERIA MET
[2020-08-12 12:39] LABS: Differential Comment SCANNED
[2020-08-12 12:51] LABS: Amphetamine Urine VISTA NEGATIVE (<1000 ng/mL); Barbiturate Urine VISTA NEGATIVE (< 200 ng/mL); Benzodiazepine Urine VISTA NEGATIVE (< 200 ng/mL); Cocaine Urine VISTA NEGATIVE (< 300 ng/mL); Ecstacy Urine VISTA NEGATIVE (< 500 ng/mL); Methadone Urine VISTA NEGATIVE (< 300 ng/mL); PCP Urine VISTA NEGATIVE (< 25 ng/mL); THC Urine VISTA POSITIVE (< 50 ng/mL); Vista UDS pH Range 5
--- NOTE | 2020-08-12 14:15 | ED.RN ---
PATIENT SPEAKING WITH [facility]OL [facility] ON PHONE.
--- NOTE | 2020-08-12 17:25 | EKG12_ITS ---
Test Reason : MEDICAL CLEARANCE Blood Pressure : / mmHG Vent. Rate : 098 BPM Atrial Rate : 098 BPM P-R Int : 168 ms QRS Dur : 074 ms QT Int : 352 ms P-R-T Axes : 086 083 085 degrees QTc Int : 449 ms Normal sinus rhythm Low voltage QRS (Limb Leads) Biatrial enlargement Abnormal ECG Confirmed by OUSMANE MENENDEZ, GRUPO ([id number]), greeting card editor CATHERINE PIERCE ([id number]) on 08/14/2020 1:03:50 PM Referred By: STEVE Confirmed By:GRUPO ROMEO MD
--- NOTE | 2020-08-12 18:22 | ED.RN ---
PER ROBERT WITH CRISIS PT REFERRED TO [facility]. CHART FAXED
--- NOTE | 2020-08-12 19:03 | NURSING ---
ROSALBA RENTERIA CALLED AND ASKED OF US TO KEEP PATIENT FOR 24 HOURS FOR OBSERVATION TO MONITOR SEIZURES DUE TO ALCOHOL WITHDRAWL
[2020-08-12 19:40] LABS: Probe Check PASS; Specimen Processing Control PASS
[2020-08-13] VITALS (8 sets, daily range): BP systolic 120–154; BP diastolic 68–99; PULSE 70–88; RESP 17–20; TEMP 36.7; O2SAT 94–98
[2020-08-13] MEDS: Acetaminophen 500 MG Tablet 1000 MG PO (01:13)
[2020-08-13] MEDS: LORazepam 0.5 MG Tablet PO (07:57)
--- NOTE | 2020-08-13 10:30 | CM.ED ---
SOCIAL WORK Call to Amira with Crisis for update on placement. Per Amira, [facility] required 24 hour observation before able to accept. This worker to update once observed for 24 hours. Plan: Pending acceptance at [facility] Dung Palmer, GIN FEEDER, FRAME TABLE OPERATOR
[2020-08-13] MEDS: Creon 24,000 unit DR Capsule 3 CAP PO (10:55)
[2020-08-13] MEDS: VILAZODONE HYDROCHLORIDE 10 MG TABLET 40 MG PO (10:56)
[2020-08-13] MEDS: Pantoprazole Sodium 40 MG Tablet PO (10:59)
--- NOTE | 2020-08-13 11:25 | CM.ED ---
SOCIAL WORK Call to [facility] to update patient has been observed 24 hours. Admissions requiring updated note from physician and updated vitals. Nursing and Dr. Tang updated. Will fax updated clinical information once completed. Call to Delta with Crisis to update on the above. Dung Palmer, NAILHEAD OPERATOR, SLIDE FASTENER CHAIN ASSEMBLER
--- NOTE | 2020-08-13 12:00 | CM.ED ---
SOCIAL WORK Met with patient in room to update on status of placement. Patient wanting to speak with daughter and granddaughter. Nursing aware. Emotional support and active listening provided to patient. Dung Palmer, HELP DESK ENGINEER, ENGINEERING GEOLOGIST
--- NOTE | 2020-08-13 12:10 | CM.ED ---
SOCIAL WORK Updated clinical information faxed to [facility]. Dung Palmer, MAINFRAME ARCHITECT, OPEN HEARTH MELTER
[2020-08-13] MEDS: Lisinopril 5 MG Tablet PO (12:39)
--- NOTE | 2020-08-13 12:50 | CM.ED ---
SOCIAL WORK Updated by nursing patient has been accepted to [facility]. Carmela to arrive for transport between 1:45p-2p. Patient updated and provided with contact information for facility to update family. Nurse to provide patient with phone. This worker to remain available for needs. Call to Crisis, spoke with Amira. Amira updated on the above. Plan: [facility], ADMINISTRATIVE ASSISTANT OFFICE MANAGER, METAL BONDING PRESS OPERATOR
== END 2020-08-13 14:24 ==
LOC: ED 12:31
PROVIDERS: Emergency Medicine; Emergency Provider Emergency Medicine; PCP Family Medicine
DX: S61.511A Laceration without foreign body of right wrist, initial encounter (principal); S61.512A Laceration without foreign body of left wrist, initial encounter; X78.9XXA Intentional self-harm by unspecified sharp object, initial encounter; Y92.9 Unspecified place or not applicable; Y99.9 Unspecified external cause status; F32.9 Major depressive disorder, single episode, unspecified; F41.9 Anxiety disorder, unspecified
CPT/HCPCS: 12004; 80048; 80307; 80320; 85025; 87635; 90715; 93005; 99285; G0480; U0002

== ENCOUNTER 2021-01-22 20:02 | Emergency (ER) | payer MEDICAID, SELFPAY ==
[2020-11-14 10:59] VITALS: BMI 20.9
[2021-01-22 20:03] VITALS: BP 97/65; PULSE 104; RESP 20; TEMP 36.3; O2SAT 94; BMI 22.8
--- NOTE | 2021-01-22 20:12 | EKG12_ITS ---
Test Reason : SOB Blood Pressure : / mmHG Vent. Rate : 095 BPM Atrial Rate : 095 BPM P-R Int : 174 ms QRS Dur : 074 ms QT Int : 368 ms P-R-T Axes : 072 074 073 degrees QTc Int : 462 ms Normal sinus rhythm Normal ECG Confirmed by OUSMANE MENENDEZ, GRUPO ([id number]), digital editor CATHERINE PIERCE ([id number]) on 01/24/2021 9:13:45 AM Referred By: CL Confirmed By:GRUPO ROMEO MD
--- NOTE | 2021-01-22 20:14 | ED.VIS.DYS ---
HPI History of Present Illness Chief Complaint: Shortness of Breath Informant: patient Narrative Narrative: 55-year-old female with past medical history of COPD, GERD, hypertension presents with concern for shortness of breath and cough. States is been progressing over 1 week. States that she has greenish sputum. Denies any fever or chills. States that today she got lightheaded and diaphoretic while walking in the store. Denies any chest pain, nausea, vomiting. PFSH PFS Medical History (Updated 01/22/21 @ 21:[address] Rodnye Abdalla, DO) Abdominal pain Alcohol abuse Alcoholic hepatitis Anemia Anxiety and depression Arthritis Asthma Benign hypertension Chronic pancreatitis COPD (chronic obstructive pulmonary disease) Diarrhea GERD (gastroesophageal reflux disease) History of back problems HPV (human papilloma virus) infection Nicotine dependence, cigarettes, uncomplicated Tobacco abuse Unintentional weight loss Home Medications vilazodone 40 mg PO DAILY 10/28/18 [History Last Taken 04/19/19 08:00] cholecalciferol (vitamin D3) 2,000 unit PO DAILY 12/29/18 [History Last Taken 04/19/19 08:00] lorazepam 0.5 - 1 mg PO DAILY PRN PRN 04/19/19 [History Last Taken 04/18/19 22:00] ffwaxc-ndhnenyv-sqfjvxs 3 ea PO BID 12/10/19 [History Last Taken Unknown] lisinopril 5 mg PO DAILY 08/12/20 [History Last Taken Unknown] mirtazapine 15 mg PO DAILY 08/12/20 [History Last Taken Unknown] pantoprazole 40 mg PO DAILY 08/12/20 [History Last Taken Unknown] albuterol sulfate 90 mcg/actuation aerosol inhaler 2 puff INHALATION Q4H PRN #18 g 11/14/20 [Rx Last Taken Unknown] budesonide-formoterol HFA 160 mcg-4.5 mcg/actuation aerosol inhaler 2 puff INHALATION BID #1 ea 11/14/20 [Rx Last Taken Unknown] tiotropium bromide 2.5 mcg/actuation mist for inhalation 2 puff INHALATION QDAY #1 ea 11/14/20 [Rx Last Taken Unknown] aripiprazole [Abilify] 5 mg PO DAILY 01/22/21 [History Last Taken Unknown] buspirone [BuSpar] 10 mg PO TID 01/22/21 [History Last Taken Unknown] doxycycline hyclate 100 mg PO BID #14 cap 01/22/21 [Rx Last Taken Unknown] prednisone 40 mg PO DAILY #10 tab 01/22/21 [Rx Last Taken Unknown] Allergy/AdvReac Type Severity Reaction Status Date / Time Penicillins Allergy Hives Verified 01/22/21 20:05 hydrocodone [From [place]] AdvReac Itching Verified 01/22/21 20:05 Family History Mother Diabetes Hypertension Heart disease High cholesterol Arthritis Thyroid disorder Brother Hypertension Sister Cancer cervical Thyroid disorder Father Kidney disease Daughter Thyroid disorder Surgical History History of appendectomy History of colonoscopy History of tubal ligation Social History Smoking Status: Current every day smoker Tobacco: How many years used: 30 second hand exposure: Yes alcohol intake: current alcohol intake frequency: 3 or more drinks per day Alcohol type: beer substance use type: does not use caffeine: Yes ROS ROS ED Constitutional Constitutional ED: Reports sweats; Denies chills or fever(s) Eyes Eyes: Denies blurry vision, change in vision or diplopia ENT ENT ED: Denies rhinorrhea or sore throat Cardiovascular Cardiovascular: Denies chest pain, orthopnea, palpitations or racing heartbeat Respiratory/Chest Respiratory/Chest: Reports cough, dyspnea, dyspnea on exertion and sputum; Denies orthopnea Gastrointestinal Gastrointestinal: Denies abdominal pain, constipation, diarrhea, melena, nausea or vomiting Genitourinary Genitourinary ED: Denies dysuria, hematuria or urinary frequency Musculoskeletal Musculoskeletal: Denies arthralgias, myalgias or neck pain Integumentary Denies rash Neurologic Neurologic: Denies headache(s), paresthesias or weakness Psychiatric Psychiatric: Denies anxiety or depression Hematologic/Lymphatic Hematologic/Lymphatic: Denies easy bleeding or easy bruising Allergic/Immunologic Allergic/Immunologic ED: Denies mouth swelling or tongue swelling EXAM Physical Exam Const Vital Signs: 01/22/21 20:03 01/22/21 20:30 01/22/21 20:31 Temperature 97.4 F L 97.4 F L Temperature Source Temporal Oral Pulse Rate 104 H 97 100 Respiratory Rate 20 H 24 H 18 Respiratory Effort Respiratory Pattern Blood Pressure 97/65 133/82 H Blood Pressure Mean 75 99 Pulse Ox 94 95 Oxygen Delivery Method Room Air Nasal Cannula Oxygen Flow Rate (L/min) 2 01/22/21 20:44 Temperature Temperature Source Pulse Rate Respiratory Rate Respiratory Effort Short of Breath Respiratory Pattern Normal Blood Pressure Blood Pressure Mean Pulse Ox Oxygen Delivery Method Oxygen Flow Rate (L/min) Positive well nourished and well developed General Appearance ED: well developed HEENT Reports TM's clear and moist mucous membranes normocephalic and atraumatic Tympanic Membrane ED: Yes TM's clear Eyes PERRL and EOMs intact bilaterally Neck no lymphadenopathy, supple and no JVD Chest Wall inspection of chest normal Resp normal respiratory effort Resp Narrative: Bilateral expiratory wheezing worse on the left. Cardio regular rate, S1 normal heart sound, S2 normal heart sound and no murmurs Peripheral Pulses: pulses 2+ throughout GI soft to palpation, non-tender and non-distended Back/Spine no CVA tenderness and no thoracic nor lumbar tenderness Extremity normal to inspection General Extremety ED: Negative for edema or tenderness General Extremity: Negative for edema Neuro oriented x3, CN's II-XII intact bilaterally and no sensory deficits noted Sensorium / Orientation: alert Motor Exam: strength 5/5 throughout Psych mental status grossly normal Skin no rashes or lesions noted MDM MDM MDM Narrative Medical decision making narrative: Patient appears well nontoxic. No respiratory distress. Bilateral wheezing. Chest x-ray interpreted by myself shows no evidence of acute infiltrate. Radiology concurs. Leukocytosis. Patient given aerosol breathing treatments as well as prednisone. Patient be placed on doxycycline given her increased sputum production as well as prednisone. Patient has inhalers at home. Asked to return for worsening shortness of breath. Patient agreeable and stable at time of discharge. Lab Data Attestation: I reviewed the patient's lab results. Labs: Laboratory Results - last 24 hr 01/22/21 01/22/21 20:30 20:30 WBC 14.9 H RBC 4.30 Hgb 11.3 L Hct 35.6 L MCV 82.8 MCH 26.3 L MCHC 31.7 L RDW Std Deviation 50.6 H RDW Coeff of Min 16.9 H Plt Count 296 MPV 9.9 Immature Gran % (Auto) 0.600 Neut % (Auto) 60.0 Lymph % (Auto) 27.3 Mobile % (Auto) 7.4 Eos % (Auto) 3.8 Baso % (Auto) 0.9 Absolute Neuts (auto) 9.0 H Absolute Lymphs (auto) 4.07 Nucleated RBC % 0 Sodium 134 L Potassium 4.0 Chloride 103 Carbon Dioxide 27.0 Anion Gap 4 L BUN 9 Creatinine 0.70 Estim Creat Clear Calc 73.35 Est GFR (MDRD) Af Amer 111 Est GFR (MDRD) Non-Af 91 BUN/Creatinine Ratio 12.8 Glucose 92 Calcium 8.9 Troponin I < 0.015 Radiography Chest X-Ray - ED: 1 View, Read by ED Physician, Read by Radiologist and Chronic Changes Diagnostic Testing: Radiology Impression Chest X-Ray 01/22/21 21:00 IMPRESSION: No acute cardiopulmonary disease. Electronically Signed: Junior Zamudio DO at 21:34 EDT Tel [phone], Service support , Rhythm Strip Rhythm Strip: Sinus Rhythm Rate: 95 Ectopy: None EKG Initial EKG: Attestation: I personally reviewed and interpreted this EKG as follows: Interpretation: No Acute Injury Pattern Comments: Normal sinus rhythm at 95 bpm. IL interval of 174 ms. QTC of 462 ms. Discharge Plan Triage Chief Complaint: Shortness of Breath ED Provider: Rodney Abdalla Dx/Rx/DC Orders Clinical Impression: Acute exacerbation of chronic obstructive pulmonary disease Instructions: ED COPD Flare Prescriptions: New prednisone 20 mg tablet 40 mg PO DAILY Qty: 10 RF: 0 doxycycline hyclate 100 mg capsule 100 mg PO BID Qty: 14 RF: 0 No Action budesonide-formoterol [Symbicort] 160-4.5 mcg/actuation HFA aerosol inhaler 2 puff INHALATION BID Qty: 1 RF: 3 Spiriva Respimat 2.5 mcg/actuation mist 2 puff INHALATION QDAY Qty: 1 RF: 6 albuterol sulfate [Ventolin HFA] 90 mcg/actuation HFA aerosol inhaler 2 puff INHALATION Q4H PRN (Reason: shortness of breath or wheezing) Qty: 18 RF: 6 vilazodone 40 MG tablet 40 mg PO DAILY RF: 0 cholecalciferol (vitamin D3) 2,000 UNIT capsule 2,000 unit PO DAILY RF: 0 lorazepam 0.5 tablet 0.5 - 1 mg PO DAILY PRN PRN (Reason: Anxiety) RF: 0 wdbikb-thfxdnni-fbxcbnf 1 CAPSULE capsule 3 ea PO BID RF: 0 pantoprazole 40 MG tablet 40 mg PO DAILY RF: 0 lisinopril 5 MG tablet 5 mg PO DAILY RF: 0 mirtazapine 15 MG tablet,disintegrating 15 mg PO DAILY RF: 0 buspirone [BuSpar] 10 mg Tablet 10 mg PO TID RF: 0 aripiprazole [Abilify] 5 mg Tablet 5 mg PO DAILY RF: 0 Primary Care Provider: Bernard Galan III Referrals: Bernard Galan III, MD [Primary Care Provider] - 2 Days Disposition Patient Disposition: Home, self care
[2021-01-22] MEDS: predniSONE 20 MG Tablet 60 MG PO (20:27)
[2021-01-22 20:30] VITALS: BP 133/82; PULSE 97; RESP 24; TEMP 36.3; O2SAT 95
[2021-01-22] MEDS: Ipratropium/Albuterol Sulfate 3 ML AMPUL.NEB INHALATION (20:30)
[2021-01-22] MEDS: Albuterol 2.5 MG/3 ML VIAL.NEB. INHALATION ×2 (20:30→20:31)
[2021-01-22 20:31] VITALS: PULSE 100; RESP 18
--- NOTE | 2021-01-22 20:47 | NUR.TO.PHY ---
Patient requesting tylenol or IBU for pain and states she has general pain but also in head and ribs from coughing and states it is a 7 on pain scale.
[2021-01-22 20:51] LABS: Absolute Lymphocyte Count 4.07 X10^3/uL (0.83-4.51); Basophil# 0.13 X10^3/uL; Basophil% 0.9 % (0-1); Eosinophil# 0.57 X10^3/uL; Eosinophils% 3.8 % (0-5); Hematocrit 35.6 % (37-47); Hemoglobin 11.3 g/dL (12.0-15.0); Lymphocyte # 4.07 X10^3/ul (0.83-4.51); Lymphocyte % 27.3 % (19-41); Mean Corp Hgb Conc 31.7 g/dL (32-36); Mean Corpuscular Hgb 26.3 pg (27.0-32.0); Mean Corpuscular Volume 82.8 fL (81-99); Mean Platelet Vol. 9.9 fl (6.2-12.0); Monocyte# 1.11 X10^3/uL; Monocyte% 7.4 % (0-10); NRBC Flagged by Analyzer 0 % (0-5); Neutrophil # 8.96 X10^3/uL (2.7-7.7); Platelet Count 296 K/mm3 (150-450); RBC Distribution Width CV 16.9 % (11.6-14.6); RBC Distribution Width SD 50.6 fl (35.1-43.9); White Blood Count 14.9 K/mm3 (4.4-11.0)
--- NOTE | 2021-01-22 21:00 | RAD_ITS ---
STUDY: X-RAY CHEST REASON FOR EXAM: Female, 55 years old. Cough. TECHNIQUE: Single AP portable view of the chest. COMPARISON: 01/27/2020. FINDINGS: The lungs are clear and expanded. There is resolution of the left basilar atelectasis is seen in the previous study. There is no demonstrated pleural abnormality. Normal size heart. Normal mediastinum and augusta. Normal visualized pulmonary arteries. There is atherosclerotic calcification of the aortic arch with tortuosity. There are no osseous changes. There is no demonstrated abnormality of the visualized soft tissue structures of the upper abdomen. RAD/Chest 1 View (Portable) IMPRESSION: No acute cardiopulmonary disease. Electronically Signed: Junior Zamudio DO at 21:34 EDT Tel [phone], Service support ,
[2021-01-22 21:11] LABS: Anion Gap 4 (5-15); BUN 9 mg/dL (7-18); BUN/Creat Ratio 12.8 RATIO (10-20); Calcium,Total 8.9 mg/dL (8.5-10.1); Chloride 103 mmol/L (98-107); EST Glomerular Filtration Rate 91 mL/min (>60); Est Glom Filt Rate - Afr Amer 111 mL/min (>60); Estimated Creatinine Clearance 73.35 ml/min; Glucose 92 mg/dL (74-106); Sodium Level 134 mmol/L (136-145)
[2021-01-22 21:45] VITALS: BP 119/87; PULSE 97; RESP 19; TEMP 36.6; O2SAT 96
[2021-01-22] MEDS: Ibuprofen 600 MG Tablet PO (22:01)
[2021-01-22] MEDS: Doxycycline 100 MG CAPSULE PO (22:01)
[2021-01-22] MEDS: Benzonatate 100 MG Capsule PO (22:01)
[2021-01-22 22:03] VITALS: BP 134/86; RESP 17; O2SAT 100
[2021-01-22 22:07] VITALS: BP 134/86; PULSE 86; RESP 19; TEMP 36.6; O2SAT 100
== END 2021-01-22 22:08 | disposition home or self-care (01) ==
PROVIDERS: Emergency Provider Emergency Medicine; PCP Family Medicine
DX: J44.1 Chronic obstructive pulmonary disease with (acute) exacerbation (principal); K21.9 Gastro-esophageal reflux disease without esophagitis; I10 Essential (primary) hypertension; F17.210 Nicotine dependence, cigarettes, uncomplicated; D64.9 Anemia, unspecified; Z79.52 Long term (current) use of systemic steroids; Z79.899 Other long term (current) drug therapy
CPT/HCPCS: 71045; 80048; 84484; 85025; 87426; 93005; 94640; 99285

== ENCOUNTER → 2021-05-27 13:43 | Outpatient (CLI) | payer MEDICAID, SELFPAY ==
--- NOTE | 2021-05-27 13:55 | CT_ITS ---
STUDY: CT CHEST WITHOUT CONTRAST- LOW DOSE SCREENING PROTOCOL REASON FOR EXAM: Female, 56 years old. Current smoker. 40 pack per year history. No current symptoms of lung cancer or pulmonary infection. Shared decision-making with referring PCP documented in patient''s record. RADIATION DOSAGE (If Supplied By Facility): CTDIvol = ( 1.59 ) mGy, DLP = ( 51.82 ) mGycm TECHNIQUE: Low dose screening CT examination performed from the base of the neck to the upper abdomen. Sagittal and coronal reformatted images performed. Sagittal and coronal MIP images provided. The measurements provided are average, rounded measurements per ACR guidelines. COMPARISON: 05/10/2020 FINDINGS: Mild emphysematous changes. No noncalcified nodule or mass. Mild diffuse cylindrical bronchiectasis. There is no demonstrated pleural abnormality. Normal heart and pericardium. There are calcifications of the coronary arteries. Normal mediastinum. Normal hilar regions. Normal unenhanced pulmonary arteries. There is atherosclerotic calcification of the aortic arch with tortuosity and elongation of the aortic arch and descending thoracic aorta. Normal osseous structures. There is no demonstrated abnormality of the visualized upper abdomen. CT/Low Dose CT Lung Screening IMPRESSION: 1. No significant indeterminate incidental findings requiring additional imaging. 2. Incidental findings include mild emphysema and bilateral cylindrical bronchiectasis. ASSESSMENT CATEGORY: LungRADS 1 - Negative. Continue annual screening with LDCT in 12 months, per established ACR guidelines. Electronically Signed: Murtaza Nascimento MD at 17:03 EDT Tel , Service support ,
== END ==
PROVIDERS: PCP Nurse Practitioner Primary Care; Referring Provider Nurse Practitioner Acute Care; Visit Provider Nurse Practitioner Acute Care
DX: Z12.2 Encounter for screening for malignant neoplasm of respiratory organs (principal); F17.210 Nicotine dependence, cigarettes, uncomplicated
CPT/HCPCS: 71271

== ENCOUNTER 2021-06-11 19:23 | Inpatient (IN) | payer MEDICAID, SELFPAY ==
[2021-06-11 19:24] VITALS: BP 185/105; PULSE 99; RESP 18; TEMP 37; O2SAT 95; BMI 22.6
--- NOTE | 2021-06-11 20:13 | US_ITS ---
STUDY: ABDOMINAL ULTRASOUND - RIGHT UPPER QUADRANT REASON FOR VISIT: Female, 56 years old. Right abdominal pain. TECHNIQUE: Ultrasound evaluation of the right upper quadrant was performed with real-time and static edwards-scale imaging. TECHNICAL QUALITY: Adequate. COMPARISON: None. FINDINGS: Liver: The liver measures 18.1 cm. There is normal echogenicity of the liver. The bile ducts are within normal limits. There is hepatic color flow. The direction of portal flow is hepatopetal. There is no demonstrated mass lesion. Gallbladder: Normal distended gallbladder. The gallbladder wall measures 2 mm. There is a negative sonographic Perez''s sign. There is no pericholecystic fluid. There are no gallstones. Common Bile Duct (C.B.D.): The common bile duct measures 5 mm. Pancreas: Normal size of the body and tail of the pancreas. It is partially obscured by bowel gas. There is normal echogenicity of the pancreas. There is no demonstrated pancreatic mass or cyst. Right Kidney: Normal size of the right kidney. The right kidney measures 11.2 cm. Normal renal cortex. The right cortex measures 1.6 cm. There is no demonstrated renal mass or cyst. There is no right hydronephrosis. US/Gallbladder IMPRESSION: 1. Hepatomegaly without mass. 2. Normal gallbladder and biliary ductal system. 3. Nonvisualization of the pancreatic head. 4. Normal right kidney. Electronically Signed: Junior Zamudio DO at 21:51 EDT Tel [phone], Service support ,
--- NOTE | 2021-06-11 20:36 | ED.VIS.GI ---
HPI HPI - GI History of Present Illness Chief Complaint: Abd Pain Detail of Chief Complaint: Abdominal pain for 2 to 3 days Informant: patient Narrative Narrative: Patient presents with 2 to 3-day history of abdominal pain to the right upper quadrant. Patient thinks it might be her gallbladder. Patient has had an appendectomy. Patient states that she had pancreatitis in November so she quit drinking. She denies any fevers. Patient states that she had a negative Covid test 5 days ago and she denies any cough or body aches. Patient denies any diarrhea out of the ordinary although she does have IBS. Patient currently rates her pain a 9 out of 10. Patient states pain is worse at night and food does not seem to affect it too much. She denies any spicy or greasy foods recently. Prior similar symptoms: No PFSH PFSH Medical History (Updated 06/12/21 @ 00:[address] Rica Doe, ) Abdominal pain Alcohol abuse Alcoholic hepatitis Anemia Anxiety and depression Arthritis Asthma Benign hypertension Chronic pancreatitis COPD (chronic obstructive pulmonary disease) Diarrhea GERD (gastroesophageal reflux disease) History of back problems HPV (human papilloma virus) infection Nicotine dependence, cigarettes, uncomplicated Tobacco abuse Unintentional weight loss Home Medications vilazodone 40 mg PO DAILY 10/28/18 [History Last Taken 04/19/19 08:00] cholecalciferol (vitamin D3) 2,000 unit PO DAILY 12/29/18 [History Last Taken 04/19/19 08:00] lorazepam 0.5 - 1 mg PO DAILY PRN PRN 04/19/19 [History Last Taken 04/18/19 22:00] juhctp-[id number]-ftnoqtd 3 ea PO BID 12/10/19 [History Last Taken Unknown] lisinopril 5 mg PO DAILY 08/12/20 [History Last Taken Unknown] mirtazapine 15 mg PO DAILY 08/12/20 [History Last Taken Unknown] pantoprazole 40 mg PO DAILY 08/12/20 [History Last Taken Unknown] albuterol sulfate 90 mcg/actuation aerosol inhaler 2 puff INHALATION Q4H PRN #18 g 11/14/20 [Rx Last Taken Unknown] aripiprazole [Abilify] 5 mg PO DAILY 01/22/21 [History Last Taken Unknown] benzonatate [Tessalon Perles] 100 mg PO BID PRN #14 cap 01/22/21 [Rx Last Taken Unknown] buspirone [BuSpar] 10 mg PO TID 01/22/21 [History Last Taken Unknown] fluticasone fur. 100 mcg-umeclid 62.5 mcg-vilant 25 mcg inhalat.powder 1 inh INHALATION DAILY #60 ea 03/29/21 [Rx Last Taken Unknown] Allergy/AdvReac Type Severity Reaction Status Date / Time Penicillins Allergy Hives Verified 06/11/21 19:24 hydrocodone [From [place]] AdvReac Itching Verified 06/11/21 19:24 Family History Mother Diabetes Hypertension Heart disease High cholesterol Arthritis Thyroid disorder Brother Hypertension Sister Cancer cervical Thyroid disorder Father Kidney disease Daughter Thyroid disorder Surgical History History of appendectomy History of colonoscopy History of tubal ligation Social History Smoking Status: Current every day smoker tobacco type: cigarettes Tobacco: How many years used: 30 second hand exposure: Yes alcohol intake: current alcohol intake frequency: 3 or more drinks per day Alcohol type: beer substance use type: does not use caffeine: Yes ROS ROS ED Constitutional Constitutional ED: Reports systems reviewed and no addt'l complaints, except as documented; Denies body ache(s), change in weight or chills Eyes Eyes: Denies acute decrease in peripheral vision, change in vision, double vision or loss of vision ENT ENT ED: Reports none; Denies ear pain, lip swelling, loss taste/smell, neck pain, otalgia or sore throat Cardiovascular Cardiovascular: Reports none; Denies abdominal pain, chest pain with activity, leg edema, lightheadedness, palpitations, rapid heart rate or syncope Respiratory/Chest Respiratory/Chest: Reports none; Denies change in mental status, dry cough, dyspnea, hemoptysis, shortness of breath at rest or shortness of breath with exertion Gastrointestinal Gastrointestinal: Reports none, abdominal pain and nausea; Denies change in stool character, diarrhea, hematemesis, hematochezia, melena, rectal bleeding or vomiting Genitourinary Genitourinary ED: Reports none; Denies abdominal discomfort, anuria, dysuria, genital pain or polyuria Musculoskeletal Musculoskeletal: Reports none; Denies arthralgias, back pain, difficulty walking, extremity pain, muscle weakness or myalgias Integumentary Reports none; Denies abscess or rash Neurologic Neurologic: Reports none; Denies abnormal gait, confusion, focal weakness, frequent falls, headache(s), loss of vision, numbness, paresthesias, radicular pain, vertigo or weakness Psychiatric Psychiatric: Reports systems reviewed and no addt'l complaints, except as documented and none; Denies behavioral changes, confusion, difficulty concentrating, hallucinations, suicidal ideation, tactile hallucinations or visual hallucinations Endocrine Endocrinology: Denies none, cold intolerance, excessive sweating, fatigue or heat intolerance Hematologic/Lymphatic Hematologic/Lymphatic: Reports none; Denies anemia, easy bleeding or easy bruising Allergic/Immunologic Allergic/Immunologic ED: Denies as per HPI, none, lip swelling, mouth swelling, throat swelling, tongue swelling or hives EXAM Physical Exam Const Vital Signs: 06/11/21 19:24 Temperature 98.6 F Temperature Source Temporal Pulse Rate 99 Respiratory Rate 18 Blood Pressure 185/105 H Blood Pressure Mean 131 Pulse Ox 95 Oxygen Delivery Method Room Air Positive well nourished and well developed General Appearance ED: well developed and NAD HEENT Reports TM's clear and moist mucous membranes normocephalic and atraumatic; Negative for trauma or tenderness Tympanic Membrane ED: Yes TM's clear Eyes PERRL and EOMs intact bilaterally General Eye ED: Negative for pale conjunctiva or scleral icterus Neck no lymphadenopathy, supple and no JVD General: Negative for tenderness Chest Wall inspection of chest normal and palpation of chest normal Chest: Negative for tenderness Resp normal respiratory effort and clear to auscultation bilaterally Effort and Inspection: Negative for respiratory distress or pain with movement Auscultation: Negative for rhonchi, wheezes or diminished lung sounds Cardio regular rate, regular rhythm, S1 normal heart sound, S2 normal heart sound and no murmurs Peripheral Pulses: pulses 2+ throughout GI normal to inspection, nondistended, normoactive bowel sounds, soft to palpation, non-distended and no masses GI Narrative: Patient has diffuse tenderness to the right upper quadrant with guarding. She is got a Perez sign. Patient also with some tenderness to the right lower quadrant. There is no rebound, rigidity, or peritoneal signs. No masses palpated. Back/Spine no CVA tenderness and no thoracic nor lumbar tenderness Extremity normal to inspection General Extremety ED: Negative for edema General Extremity: Negative for edema Neuro oriented x3, CN's II-XII intact bilaterally, no sensory deficits noted and gait normal Sensorium / Orientation: awake, alert, oriented to person, oriented to place and oriented to time Motor Exam: strength 5/5 throughout and strength abnormal Psych mental status grossly normal Skin no rashes or lesions noted and no wounds MDM MDM MDM Narrative Medical decision making narrative: IV line established on arrival. Patient was medicated with Dilaudid and Zofran. Patient had good pain relief with that. Initial ultrasound showed a normal gallbladder. CT scan of the abdomen pelvis obtained was interpreted by radiologist who contacted me and discussed case with me and felt that patient likely had acute cholecystitis on CT. She went back and looked at the ultrasound that had been done earlier and felt that patient did have thickened gallbladder wall to 4 mm and presence of pericholecystic fluid. I discussed case with general surgeon on-call Dr. Pam Burton who will admit patient to hospital. Lab Data Attestation: I reviewed the patient's lab results. Labs: Laboratory Results - last 24 hr 06/11/21 06/11/21 06/11/21 20:38 20:38 20:45 WBC 21.3 H RBC 4.95 Hgb 13.5 Hct 43.0 MCV 86.9 MCH 27.3 MCHC 31.4 L RDW Std Deviation 47.7 H RDW Coeff of Min 14.9 H Plt Count 312 MPV 10.3 Immature Gran % (Auto) 0.600 Neut % (Auto) 79.1 H Lymph % (Auto) 11.6 L Bay % (Auto) 6.1 Eos % (Auto) 2.0 Baso % (Auto) 0.6 Absolute Neuts (auto) 16.9 H Absolute Lymphs (auto) 2.47 Nucleated RBC % 0 Sodium 138 Potassium 3.9 Chloride 105 Carbon Dioxide 27.0 Anion Gap 6 BUN 8 Creatinine 0.61 Estim Creat Clear Calc 83.16 Est GFR (MDRD) Af Amer 129 Est GFR (MDRD) Non-Af 106 BUN/Creatinine Ratio 13.1 Glucose 121 H Lactic Acid 0.9 Calcium 9.2 Total Bilirubin 0.20 AST 12 L ALT 19 Alkaline Phosphatase 114 Total Protein 7.8 Albumin 3.6 Globulin 4.2 Albumin/Globulin Ratio 0.9 Lipase 92 Urine Color Urine Clarity Urine pH Ur Specific [place] Urine Protein Urine Glucose (UA) Urine Ketones Urine Occult Blood Urine Nitrite Urine Bilirubin Urine Urobilinogen Ur Leukocyte Esterase Urine RBC Urine WBC Ur Squamous Epith Cells Urine Bacteria Urine Mucus 06/11/21 22:15 WBC RBC Hgb Hct MCV MCH MCHC RDW Std Deviation RDW Coeff of Min Plt Count MPV Immature Gran % (Auto) Neut % (Auto) Lymph % (Auto) Bay % (Auto) Eos % (Auto) Baso % (Auto) Absolute Neuts (auto) Absolute Lymphs (auto) Nucleated RBC % Sodium Potassium Chloride Carbon Dioxide Anion Gap BUN Creatinine Estim Creat Clear Calc Est GFR (MDRD) Af Amer Est GFR (MDRD) Non-Af BUN/Creatinine Ratio Glucose Lactic Acid Calcium Total Bilirubin AST ALT Alkaline Phosphatase Total Protein Albumin Globulin Albumin/Globulin Ratio Lipase Urine Color Yellow Urine Clarity Clear Urine pH 5.0 Ur Specific [place] 1.020 Urine Protein Negative Urine Glucose (UA) Normal Urine Ketones Negative Urine Occult Blood Negative Urine Nitrite Negative Urine Bilirubin Negative Urine Urobilinogen Normal Ur Leukocyte Esterase 100 H Urine RBC 0-5 SEEN Urine WBC 5-10 SEEN Ur Squamous Epith Cells 0-5 SEEN Urine Bacteria 0 SEEN Urine Mucus 0 SEEN Radiography Diagnostic Testing: Radiology Impression Gallbladder Ultrasound 06/11/21 20:13 IMPRESSION: 1. Hepatomegaly without mass. 2. Normal gallbladder and biliary ductal system. 3. Nonvisualization of the pancreatic head. 4. Normal right kidney. Electronically Signed: Junior Zamudio DO at 21:51 EDT Tel [phone], Service support , Abdomen/Pelvis CT 06/11/21 22:00 IMPRESSION: Thick walled distended edematous appearance of the gallbladder with pericholecystic fluid suspicious for acute cholecystitis. Mild to moderate constipation. Electronically Signed: Rosmery Moreira MD at 0:34 EDT Tel , Service support , Discharge Plan Triage Chief Complaint: Abd Pain ED Provider: Rica Doe Dx/Rx/DC Orders Clinical Impression: Abdominal pain, Acute cholecystitis Prescriptions: No Action albuterol sulfate [Ventolin HFA] 90 mcg/actuation HFA aerosol inhaler 2 puff INHALATION Q4H PRN (Reason: shortness of breath or wheezing) Qty: 18 RF: 6 Trelegy Ellipta 100-62.5-25 mcg blister with device 1 inh inhalation DAILY Qty: 60 RF: 5 vilazodone 40 MG tablet 40 mg PO DAILY RF: 0 cholecalciferol (vitamin D3) 2,000 UNIT capsule 2,000 unit PO DAILY RF: 0 lorazepam 0.5 tablet 0.5 - 1 mg PO DAILY PRN PRN (Reason: Anxiety) RF: 0 yjyebj-[id number]-skrglbr 1 CAPSULE capsule 3 ea PO BID RF: 0 pantoprazole 40 MG tablet 40 mg PO DAILY RF: 0 lisinopril 5 MG tablet 5 mg PO DAILY RF: 0 mirtazapine 15 MG tablet,disintegrating 15 mg PO DAILY RF: 0 buspirone [BuSpar] 10 mg Tablet 10 mg PO TID RF: 0 aripiprazole [Abilify] 5 mg Tablet 5 mg PO DAILY RF: 0 benzonatate [Tessalon Perles] 100 mg capsule 100 mg PO BID PRN (Reason: cough) Qty: 14 RF: 0 Primary Care Provider: Theron Teague NP Referrals: Theron Teague NP, [employer] [Primary Care Provider] - Disposition Disposition: Acute Care [facility]
[2021-06-11] MEDS: Ondansetron 4 MG/2 ML Vial IV (20:46)
[2021-06-11] MEDS: HYDROmorphone 1 MG/ML Syringe IV (20:46)
[2021-06-11] MEDS: 0.9% Normal Saline 1,000 ML 150 ML IV (20:46)
[2021-06-11 20:47] LABS: Absolute Lymphocyte Count 2.47 X10^3/uL (0.83-4.51); Absolute Neutrophil Count 16.9 X10^3/uL (2.0-7.7); Basophil# 0.12 X10^3/uL; Basophil% 0.6 % (0-1); Eosinophil# 0.42 X10^3/uL; Hemoglobin 13.5 g/dL (12.0-15.0); Lymphocyte # 2.47 X10^3/ul (0.83-4.51); Lymphocyte % 11.6 % (19-41); Mean Corp Hgb Conc 31.4 g/dL (32-36); Mean Corpuscular Hgb 27.3 pg (27.0-32.0); Mean Corpuscular Volume 86.9 fL (81-99); Mean Platelet Vol. 10.3 fl (6.2-12.0); Monocyte# 1.31 X10^3/uL; Monocyte% 6.1 % (0-10); NRBC Flagged by Analyzer 0 % (0-5); Neutrophil # 16.88 X10^3/uL (2.7-7.7); Neutrophil % 79.1 % (47-70); Platelet Count 312 K/mm3 (150-450); RBC Distribution Width CV 14.9 % (11.6-14.6); RBC Distribution Width SD 47.7 fl (35.1-43.9); Red Blood Count 4.95 M/mm3 (4.2-5.4); White Blood Count 21.3 K/mm3 (4.4-11.0)
[2021-06-11 21:18] LABS: Lactic Acid 0.9 mmol/L (0.4-1.9)
[2021-06-11 21:34] LABS: ALB/GLOB Ratio 0.9 RATIO (0.9-2.4); AST(SGOT) 12 U/L (15-37); Alanine Aminotransfer ALT/SGPT 19 U/L (13-56); Albumin, Serum 3.6 g/dL (3.2-5.0); Alkaline Phosphatase 114 U/L (45-117); Anion Gap 6 (5-15); BUN 8 mg/dL (7-18); BUN/Creat Ratio 13.1 RATIO (10-20); Calcium,Total 9.2 mg/dL (8.5-10.1); Chloride 105 mmol/L (98-107); Creatinine, Serum 0.61 mg/dL (0.55-1.02); EST Glomerular Filtration Rate 106 mL/min (>60); Est Glom Filt Rate - Afr Amer 129 mL/min (>60); Estimated Creatinine Clearance 83.16 ml/min; Globulin 4.2 g/dL (2.2-4.2); Glucose 121 mg/dL (74-106); Lipase 92 U/L (73-393); Potassium 3.9 mmol/L (3.5-5.1); Protein, Total 7.8 g/dL (6.4-8.2); Sodium Level 138 mmol/L (136-145)
--- NOTE | 2021-06-11 22:00 | CT_ITS ---
We are attempting to reach an attending provider to discuss findings. An addendum with communication details will be sent when the communication is complete. STUDY: CT ABDOMEN AND PELVIS WITH CONTRAST REASON FOR EXAM: Female, 56 years old. Abdominal pain RADIATION DOSAGE (If Supplied By Facility): CTDIvol = ( 13.54 ) mGy, DLP = ( 634.10 ) mGycm TECHNIQUE: Transaxial images were obtained from the dome of the diaphragm to the symphysis pubis without oral contrast. Oral and amp; IV Gastrografin and amp; 100mL Isovue-370 was administered. Sagittal and coronal images were reconstructed. Individualized dose optimization techniques were used for this CT. COMPARISON: April 19, 2019 CT abdomen and pelvis, ultrasound gallbladder June 11, 2021, ultrasound gallbladder June 11, 2021. FINDINGS: The visualized lung bases are unremarkable. The visualized portions of the heart are within normal limits. Normal liver. There is a thick-walled appearance of the gallbladder with indistinct borders. This is suggestive of trace pericholecystic fluid. The gallbladder wall may measure up to 6 mm. This is greater than prior study. There is an adjacent lymph node within the chase hepatis measuring 8.4 mm. Normal spleen. There is calcification at the head and uncinate process of the pancreas suggesting prior history of pancreatitis. Normal bilateral adrenal glands. Normal right kidney. There is a left renal cyst measuring 9.2 mm. There is no hydronephrosis. Normal visualized stomach. Normal small intestine. There is mild to moderate stool in the colon from the cecum to the rectum. There is non-visualization of the appendix. There is partially calcified. Normal inferior vena cava. Normal retroperitoneum. Normal urinary bladder. Normal visualized uterus. There is a small umbilical hernia containing fat. Normal osseous structures. CT/Abdomen/Pelvis WITH Contrast IMPRESSION: Thick walled distended edematous appearance of the gallbladder with pericholecystic fluid suspicious for acute cholecystitis. Mild to moderate constipation. Electronically Signed: Rosmery Moreira MD at 0:34 EDT Tel , Service support ,
[2021-06-11 22:27] LABS: Bacteria 0 SEEN /hpf (None Seen); Mucous, Urine 0 SEEN /hpf (<or=2+)
[2021-06-11 22:30] LABS: Color, Urine Yellow (Yellow); Glucose, Dipstick Normal (Normal); Ketone-Dipstick Negative (Negative); Leukocyte Esterase-Dipstick 100 /ul (Negative); Nitrite-Dipstick Negative (Negative); Occult Blood-Urine Negative /ul (Negative); Protein-Dipstick Negative (Negative); Urine Bilirubin Dipstick Negative (Negative); Urine Clarity Clear (Clear); Urine Urobilinogen Normal (Normal)
[2021-06-11 23:08] LABS: Red Blood Cells-Urine 0-5 SEEN /hpf (0-5); Squamous Epithelial Cells - UA 0-5 SEEN /hpf (5-10); White Blood Cells 5-10 SEEN /hpf (0-5)
[2021-06-12] VITALS (9 sets, daily range): BP systolic 115–144; BP diastolic 63–79; PULSE 70–90; RESP 16–18; TEMP 36.4–37.2; O2SAT 91–99; BMI 23.1
[2021-06-12] MEDS: HYDROmorphone 1 MG/ML Syringe IV (01:37)
[2021-06-12] MEDS: 0.9% Saline Lock 10 ML Syringe IV ×3 (03:18→17:55)
[2021-06-12] MEDS: Lactated Ringers 1,000 ML 75 ML IV ×2 (03:19→20:01)
--- NOTE | 2021-06-12 05:02 | PCS.PANDOC ---
PANDEMIC DOCUMENTATION INITIATED: Date: 05/13/2021 Time: 190
--- NOTE | 2021-06-12 06:00 | EKG12_ITS ---
Test Reason : AM EKG Blood Pressure : / mmHG Vent. Rate : 074 BPM Atrial Rate : 074 BPM P-R Int : 202 ms QRS Dur : 076 ms QT Int : 418 ms P-R-T Axes : 082 057 083 degrees QTc Int : 463 ms Normal sinus rhythm Septal infarct , age undetermined Abnormal ECG When compared with ECG of 22-JAN-2021 20:22, No significant change was found Confirmed by CLIFTON MENEDNEZ, COCO ([id number]), food expeditor CATHERINE PIERCE ([id number]) on 06/13/2021 10:45:04 AM Referred By: ZEHRA Confirmed By:COCO LAZO MD
[2021-06-12 07:34] LABS: Absolute Lymphocyte Count 2.44 X10^3/uL (0.83-4.51); Absolute Neutrophil Count 6.9 X10^3/uL (2.0-7.7); Basophil# 0.07 X10^3/uL; Basophil% 0.6 % (0-1); Eosinophil# 0.33 X10^3/uL; Hematocrit 38.8 % (37-47); Hemoglobin 12.2 g/dL (12.0-15.0); Lymphocyte # 2.44 X10^3/ul (0.83-4.51); Lymphocyte % 22.2 % (19-41); Mean Corp Hgb Conc 31.4 g/dL (32-36); Mean Corpuscular Hgb 27.5 pg (27.0-32.0); Mean Corpuscular Volume 87.4 fL (81-99); Mean Platelet Vol. 10.1 fl (6.2-12.0); Monocyte# 1.22 X10^3/uL; Monocyte% 11.1 % (0-10); NRBC Flagged by Analyzer 0 % (0-5); Neutrophil # 6.88 X10^3/uL (2.7-7.7); Neutrophil % 62.5 % (47-70); Platelet Count 235 K/mm3 (150-450); RBC Distribution Width SD 48.4 fl (35.1-43.9); Red Blood Count 4.44 M/mm3 (4.2-5.4)
--- NOTE | 2021-06-12 07:35 | NM_ITS ---
STUDY: HEPATOBILARY SCINTGRAPHY REASON FOR EXAM: Female, 56 years old. A developing COMPARISON STUDIES : NM - None. CR - Not available for review at this time. CT - Not available for review at this time. MR - Not available for review at this time. Ultrasound 06/11/2021 Technique: After the administration of 6 mCi of technetium 99m Choletec intravenously, multiple scintigraphic images of the abdomen were obtained.. Findings: Homogeneous uptake of radiopharmaceutical throughout the hepatic parenchyma. Prompt excretion into the biliary tree first seen on the 15 minute image. Nonvisualization of the gallbladder despite imaging 120 minutes.. Passage of radiopharmaceutical from the biliary tree into the small bowel ensuring patency of the common bile duct. NM/Hepatobilliary Img w/Pharm Int IMPRESSION: Nonvisualization the gallbladder. Differential diagnosis includes acute cholecystitis, chronic cholecystitis, prolonged fasting, or recent meal. Electronically Signed: Murtaza Nascimento MD at 13:07 EDT Tel , Service support ,
--- NOTE | 2021-06-12 07:36 | PCM.HP.STD ---
HPI - General General Date of Admission: 06/12/21 HPI Narrative MIR KANG, is a 56 F who presents with three day history of RUQ abdominal pain. She has a history of ETOH abuse, hasn't had ETOH since November. She has noted intermittent RUQ abdominal pain for the past two years. However, in the past three days, the pain has been very severe, feels like having a baby, pressure and sharp pain in the RUQ abdomen. But she would note this pain mostly at night, has minimal to no pain during the day. Feels like that it is after evening meal. She denies fevers. Has nausea, but denies vomiting. Presently denies any abdominal pain. She states that she has had a history of pancreatitis, had EGD previously Admits to TOB use Work up in ED CT scan - thickened gallbladder wall, no stones US - thickened gallbladder wall, no stones initial WBC was 21.3K but now 11K, normal LFTs [facility] Medical History (Updated 06/12/21 @ 07:[address] Pam Burton MD) Abdominal pain Alcohol abuse Alcoholic hepatitis Anemia Anxiety and depression Arthritis Asthma Benign hypertension Chronic pancreatitis COPD (chronic obstructive pulmonary disease) Diarrhea GERD (gastroesophageal reflux disease) History of back problems HPV (human papilloma virus) infection Nicotine dependence, cigarettes, uncomplicated Tobacco abuse Unintentional weight loss Home Medications vilazodone 40 mg PO DAILY 10/28/18 [History Last Taken 04/19/19 08:00] cholecalciferol (vitamin D3) 50 mcg PO DAILY 12/29/18 [History Last Taken 06/11/21] lorazepam 0.5 - 1 mg PO DAILY PRN PRN 04/19/19 [History Last Taken 04/18/19 22:00] dmpfad-ffjtvszu-dfiwcam 3 ea PO BID 12/10/19 [History Last Taken 06/11/21] lisinopril 10 mg PO DAILY 08/12/20 [History Last Taken 06/11/21] mirtazapine 45 mg PO QHS 08/12/20 [History Last Taken 06/10/21] pantoprazole 40 mg PO DAILY 08/12/20 [History Last Taken 06/11/21] albuterol sulfate 90 mcg/actuation aerosol inhaler 2 puff INHALATION Q4H PRN #18 g 11/14/20 [Rx Last Taken Unknown] aripiprazole [Abilify] 5 mg PO QHS 01/22/21 [History Last Taken 06/10/21] benzonatate [Tessalon Perles] 100 mg PO BID PRN #14 cap 01/22/21 [Rx Last Taken Unknown] buspirone [BuSpar] 10 mg PO TID PRN 01/22/21 [History Last Taken Unknown] jiudvggjuci-kbrfaqhzy-ildikcap [Trelegy Ellipta] 1 inh INHALATION DAILY 06/12/21 [History Last Taken Unknown] hydroxyzine pamoate 25 mg PO QHS 06/12/21 [History Last Taken 06/10/21] ibuprofen 400 mg PO Q4H 06/12/21 [History Last Taken Unknown] Allergy/AdvReac Type Severity Reaction Status Date / Time Penicillins Allergy Hives Verified 06/11/21 19:24 hydrocodone [From [place]] AdvReac Itching Verified 06/11/21 19:24 Family History Mother Diabetes Hypertension Heart disease High cholesterol Arthritis Thyroid disorder Brother Hypertension Sister Cancer cervical Thyroid disorder Father Kidney disease Daughter Thyroid disorder Surgical History History of appendectomy History of colonoscopy History of tubal ligation Social History Smoking Status: Current every day smoker tobacco type: cigarettes Tobacco: How many years used: 30 second hand exposure: Yes alcohol intake: current alcohol intake frequency: 3 or more drinks per day Alcohol type: beer substance use type: does not use caffeine: Yes ROS Constitutional Constitutional: Denies fever(s) Respiratory/Chest Respiratory/Chest: Denies dyspnea Gastrointestinal Gastrointestinal: Reports systems reviewed and no addt'l complaints, except as documented Genitourinary Genitourinary: Denies hematuria Musculoskeletal Musculoskeletal: Denies abnormal gait Integumentary Integumentary: Denies jaundice Neurologic Neurologic: Denies paresthesias Vital Signs Vital Signs Vital Signs: 06/11/21 19:24 06/12/21 01:05 06/12/21 01:24 Temperature 98.6 F 97.9 F Temperature Source Temporal Oral Pulse Rate 99 78 70 Respiratory Rate 18 16 16 Respiratory Effort Respiratory Depth Respiratory Pattern Blood Pressure 185/105 H 144/79 H Blood Pressure Mean 131 100 Pulse Ox 95 97 99 Oxygen Delivery Method Room Air Room Air Room Air Oxygen Flow Rate (L/min) 06/12/21 02:45 06/12/21 03:24 Temperature 97.6 F L Temperature Source Oral Pulse Rate 89 Respiratory Rate 18 Respiratory Effort Normal Respiratory Depth Normal Respiratory Pattern Normal Blood Pressure 124/73 H Blood Pressure Mean 90 Pulse Ox 94 Oxygen Delivery Method Nasal Cannula Room Air Oxygen Flow Rate (L/min) 2 Weight Weight: 59.1 kg Body Mass Index (BMI) 23.1 Physical Exam Const oriented x3 and no apparent distress Resp normal respiratory effort Cardio regular rate GI GI Narrative: tender RUQ but no peritoneal signs Extremity normal to inspection Results Lab / Micro Data Result Diagrams: 06/12/21 07:05 06/12/21 07:05 Labs: Laboratory Results - last 24 hr 06/11/21 20:38: WBC 21.3 H, RBC 4.95, Hgb 13.5, Hct 43.0, MCV 86.9, MCH 27.3, MCHC 31.4 L, RDW Std Deviation 47.7 H, RDW Coeff of Min 14.9 H, Plt Count 312, MPV 10.3, Immature Gran % (Auto) 0.600, Neut % (Auto) 79.1 H, Lymph % (Auto) 11.6 L, [place] % (Auto) 6.1, Eos % (Auto) 2.0, Baso % (Auto) 0.6, Absolute Neuts (auto) 16.9 H, Absolute Lymphs (auto) 2.47, Nucleated RBC % 0 06/11/21 20:38: Sodium 138, Potassium 3.9, Chloride 105, Carbon Dioxide 27.0, Anion Gap 6, BUN 8, Creatinine 0.61, Estim Creat Clear Calc 83.16, Est GFR (MDRD) Af Amer 129, Est GFR (MDRD) Non-Af 106, BUN/Creatinine Ratio 13.1, Glucose 121 H, Calcium 9.2, Total Bilirubin 0.20, AST 12 L, ALT 19, Alkaline Phosphatase 114, Total Protein 7.8, Albumin 3.6, Globulin 4.2, Albumin/Globulin Ratio 0.9, Lipase 92 06/11/21 20:45: Lactic Acid 0.9 06/11/21 22:15: Urine Color Yellow, Urine Clarity Clear, Urine pH 5.0, Ur Specific [place] 1.020, Urine Protein Negative, Urine Glucose (UA) Normal, Urine Ketones Negative, Urine Occult Blood Negative, Urine Nitrite Negative, Urine Bilirubin Negative, Urine Urobilinogen Normal, Ur Leukocyte Esterase 100 H, Urine RBC 0-5 SEEN, Urine WBC 5-10 SEEN, Ur Squamous Epith Cells 0-5 SEEN, Urine Bacteria 0 SEEN, Urine Mucus 0 SEEN 06/12/21 07:05: WBC 11.0, RBC 4.44, Hgb 12.2, Hct 38.8, MCV 87.4, MCH 27.5, MCHC 31.4 L, RDW Std Deviation 48.4 H, RDW Coeff of Min 15.0 H, Plt Count 235, MPV 10.1, Immature Gran % (Auto) 0.600, Neut % (Auto) 62.5, Lymph % (Auto) 22.2, [place] % (Auto) 11.1 H, Eos % (Auto) 3.0, Baso % (Auto) 0.6, Absolute Neuts (auto) 6.9, Absolute Lymphs (auto) 2.44, Nucleated RBC % 0 Micro: Microbiology 06/12/21 00:55 Nasal Secretion SARS-CoV-2 Antigen (Rapid) - Final Radiology Impression Gallbladder Ultrasound 06/11/21 20:13 IMPRESSION: 1. Hepatomegaly without mass. 2. Normal gallbladder and biliary ductal system. 3. Nonvisualization of the pancreatic head. 4. Normal right kidney. Electronically Signed: Junior Zamudio DO at 21:51 EDT Tel [phone], Service support , Abdomen/Pelvis CT 06/11/21 22:00 IMPRESSION: Thick walled distended edematous appearance of the gallbladder with pericholecystic fluid suspicious for acute cholecystitis. Mild to moderate constipation. Electronically Signed: Rosmery Moreira MD at 0:34 EDT Tel , Service support , ADDENDUM: 06/12/21 0043 IMPRESSION: Thick walled distended edematous appearance of the gallbladder with pericholecystic fluid suspicious for acute cholecystitis. Mild to moderate constipation. N.B. : The above Results were Read Back by Rosmery Moreira MD to Dr. Nader MD, and understanding confirmed on 06/12/2021 00:36:13 (ET). Electronically Signed: Rosmery Moreira MD at 0:34 EDT Tel , Service support , Assessment & Plan Assessment/Plan (1) RUQ abdominal pain: PLAN: Admit to hospital Will plan on obtaining HIDA scan to determine if urgent cholecystectomy required IV hydration, antibiotics, pain medication
[2021-06-12 08:09] LABS: Anion Gap 3 (5-15); BUN 7 mg/dL (7-18); BUN/Creat Ratio 9.4 RATIO (10-20); Calcium,Total 8.7 mg/dL (8.5-10.1); Chloride 108 mmol/L (98-107); Creatinine, Serum 0.74 mg/dL (0.55-1.02); EST Glomerular Filtration Rate 85 mL/min (>60); Est Glom Filt Rate - Afr Amer 103 mL/min (>60); Estimated Creatinine Clearance 68.55 ml/min; Glucose 92 mg/dL (74-106); Potassium 4.2 mmol/L (3.5-5.1); Sodium Level 141 mmol/L (136-145)
[2021-06-12] MEDS: HYDROmorphone 0.5 MG/0.5 ML SYRINGE IV ×2 (13:43→17:54)
--- NOTE | 2021-06-12 14:58 | CASEMGMT ---
SARWAT LOMELI Assessment: Face to Face with pt for initial transition planning/care coordination assessment. SARWAT LOMELI introduced self and role at [facility], pt voices understanding and consents to assessment. Pt is A/O x4 and answers all questions appropriately at this time. Pt lying in bed in no distress. Care providers, pharmacy, and demographics verified/updated. 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 Preferred Pharmacy: [place] Insurance: [employer] Prescription Benefit: yes LW/HPOA: Pt denies having a LW/DPOA and denies need for info regarding AD. LNOK: Caitie Lazo, dtr; Domonique Augustine, sister Living Arrangements: Pt lives in a two story apt with her granddtr with 7 steps to enter with a rail. Pt reports being I in ADL's and denies concerns at home. Transportation: Pt drives self and denies concerns with transportation. DME/HHC/SNF: Pt has an oxygen concentrator from [employer]. She states she wears 2L as needed. Denies any hx of HHC or SNF. Pt denies drinking alcohol, she smokes 1 pack of cigarettes per day. Pt states she smokes marijuana every now and then and denies any other illegal drugs. Pt states no concerns with going home at time of dc. Pt states no further concerns/needs. CM to follow. Advised pt to ask CM if any further question/concerns/needs arise, voices understanding. Pt Goal: Home Plan: Home
--- NOTE | 2021-06-12 16:58 | PCM.PN.BLA ---
Progress Note Patient underwent HIDA scan today, it shows non visualization of the gallbladder. I have discussed laparoscopic cholecystectomy with patient. Dr. Lopez has available OR time and will be able to perform surgery on Thursday. Patient is in agreement with this. She wishes to stay in hospital until surgery. Will start regular diet and continue IV antibiotics for acute on chronic cholecystitis.
[2021-06-12] MEDS: Ibuprofen 400 MG Tablet PO ×2 (17:48→21:22)
[2021-06-12] MEDS: Lisinopril 10 MG Tablet PO (17:48)
[2021-06-12] MEDS: Budesonide Respules 0.5 MG/2 ML AMPUL.NEB. INHALATION (18:41)
[2021-06-12] MEDS: Ipratropium 0.5 MG/2.5 ML SOLUTION INHALATION (18:43)
[2021-06-12] MEDS: ARIPiprazole 5 MG Tablet PO (21:22)
[2021-06-12] MEDS: Mirtazapine 15 MG Tablet 45 MG PO (22:35)
[2021-06-13] VITALS (8 sets, daily range): BP systolic 119–150; BP diastolic 68–79; PULSE 75–86; RESP 16–20; TEMP 36.1–36.9; O2SAT 91–96
[2021-06-13] MEDS: HYDROmorphone 0.5 MG/0.5 ML SYRINGE IV (06:48)
[2021-06-13] MEDS: 0.9% Saline Lock 10 ML Syringe IV (06:48)
[2021-06-13] MEDS: Ipratropium 0.5 MG/2.5 ML SOLUTION INHALATION ×3 (07:11→19:30)
[2021-06-13] MEDS: Budesonide Respules 0.5 MG/2 ML AMPUL.NEB. INHALATION ×2 (07:12→19:30)
[2021-06-13] MEDS: Pantoprazole Sodium 40 MG Tablet PO (08:12)
--- NOTE | 2021-06-13 09:04 | PCS.PANDOC ---
PANDEMIC DOCUMENTATION INITIATED: Date: 05/13/2021 Time: 189906/12/21 0233
[2021-06-13] MEDS: Lactated Ringers 1,000 ML 75 ML IV (10:07)
[2021-06-13] MEDS: Lisinopril 10 MG Tablet PO (10:09)
[2021-06-13] MEDS: Ibuprofen 400 MG Tablet PO ×3 (14:20→23:26)
[2021-06-13] MEDS: VILAZODONE HYDROCHLORIDE 10 MG TABLET 40 MG PO (14:20)
[2021-06-13] MEDS: LORazepam 0.5 MG Tablet PO (14:26)
--- NOTE | 2021-06-13 14:46 | CASEMGMT ---
SARWAT LOMELI NOTE: Per Amy @ [facility] [place] current home O2 orders are 2 L/M continuously. Jenny GALLOWAY RN CM
[2021-06-13] MEDS: Creon 24,000 unit DR Capsule 3 CAP PO (17:06)
[2021-06-13] MEDS: ARIPiprazole 5 MG Tablet PO (23:26)
[2021-06-13] MEDS: Mirtazapine 15 MG Tablet 45 MG PO (23:27)
[2021-06-14] VITALS (19 sets, daily range): BP systolic 75–163; BP diastolic 63–99; PULSE 74–102; RESP 12–20; TEMP 36.2–36.7; O2SAT 86–98; BMI 23.1
[2021-06-14] MEDS: 0.9% Saline Lock 10 ML Syringe IV ×3 (00:08→22:46)
[2021-06-14] MEDS: LORazepam 0.5 MG Tablet PO ×2 (00:16→22:46)
[2021-06-14] MEDS: Ibuprofen 400 MG Tablet PO ×3 (02:26→22:41)
[2021-06-14] MEDS: HYDROmorphone 0.5 MG/0.5 ML SYRINGE IV ×2 (02:27→18:16)
[2021-06-14] MEDS: Lactated Ringers 1,000 ML 75 ML IV ×3 (05:18→17:22)
[2021-06-14] MEDS: Ipratropium 0.5 MG/2.5 ML SOLUTION INHALATION ×2 (07:00→19:28)
[2021-06-14] MEDS: Budesonide Respules 0.5 MG/2 ML AMPUL.NEB. INHALATION ×2 (07:01→19:28)
[2021-06-14] MEDS: Creon 24,000 unit DR Capsule 3 CAP PO (08:48)
--- NOTE | 2021-06-14 14:35 | GALL_PTH ---
PATIENT: MIR KANG LOC: MS3 U#:[id number] AGE/SX: 56/F ROOM: GA321 RE06/12/[address]: Dr. Víctor Lopez MD : 1965 BED: 1 DIS: 06/16/2021 SPEC #: [id number] RECD: 06/14/21 15:40 STATUS: WAYNE RERupali #: [id number] DEB: 06/14/21 14:[address]: Víctor Lopez DEPT: SURGICAL PATHOLOGY RECD BY: Gaviota Carroll ENTERED: 06/15/21 16:35 SP TYPE: NILTON GORDON DR: MD Theron Chamberlain, MARY-C Tissues: Gallbladder, NOS Procedures: Surgery Specimen Level III HEADER OPERATION: Laparoscopic cholecystectomy PRE-OP DIAGNOSIS: Acute cholecystitis TISSUE SUBMITTED: Gallbladder MICROSCOPIC DIAGNOSIS Gallbladder, cholecystectomy: Acute and chronic cholecystitis. Reactive epithelial changes. See comment. SJ:mónica 06/18/2021 COMMENT No stones are identified. MICROSCOPIC DESCRIPTION Slides are reviewed. GROSS DESCRIPTION Received is one container labeled with the patient's name and designated gallbladder. The specimen consists of a gallbladder measuring 8 x 3.8 x 1.5 cm. The external surface is smooth and glistening. Focally, it is granular, hemorrhagic and contains cautery artifact. The lumen of the gallbladder contains yellow-green mucoid bile and no calculi. The mucosa is bile-stained and without any mass lesions. The gallbladder wall averages 0.4 cm in thickness and is free of mass lesions. Washroom Operator sections of the gallbladder and the cystic duct at margin of resection are submitted in one cassette. / AM:mónica 06/17/21 TC:2 CPT: 86598
--- NOTE | 2021-06-14 15:34 | PCM.OPRPT ---
Problems Associated Problem List Diagnoses (1) Acute cholecystitis: Report of Operation Date of Procedure: 06/14/21 Pre-Operative Diagnosis: Acute cholecystitis Post-Operative Diagnosis: Same Surgery/Procedure Performed:: Laparoscopic cholecystectomy Surgeon: Víctor Lopez concrete batching plant operator: Franco Torres Type of Anesthesia: General Anesthesiologist: Jeferson Breaux Specimen's removed: Gallbladder Drains: 15 round Micah-Norris Estimated Blood Loss (mL): 100 cc Description of Procedure: Patient was brought into the operating room. Placed in the supine position. Under excellent general endotracheal ovation the abdomen was sterilely prepped and draped in the usual fashion. Local was injected infraumbilically dissection was carried down to the fascia the fascia was grasped with a Shalini varies needle was placed inside the abdomen the abdomen was insufflated to 15 torr a 10/12 trocar was placed without difficulty. The patient was placed in the head up and rotated to the left position. A subxiphoid #5 trocar was placed. Inferior to this another #5 trochars placed. Laterally #5 trocar was placed. There was a small serosal tear on the liver dome hemostasis was achieved with the use of electrocautery without difficulty. Patient was noted to have a dense gallbladder I aspirated out fluid sent for culture and sensitivity. Fundus of the gallbladder was grasped retracted in a cephalad direction. I dissected out the cystic duct and cystic artery I placed hemoclips proximally and distally on the duct I thought it was best that I do a dome down approach I use electrocautery came down and once I identified the artery and duct again I then ligated the duct and placed 2 more hemoclips on the artery and ligated the artery. I placed the specimen in a specimen bag and delivered through the umbilical port without difficulty. Patient had a very firm liver and had a lot of oozing from the liver I used the argon beam geographic information systems analyst and I achieved good pneumostasis. This process I needed to use a liver retractor as well as grab the falciform ligament to lift the liver up. I placed a 15 round Micah-Norris drain through the right upper quadrant incision. I sutured it to the skin with a 3-0 nylon. I inspected 1 more time I did not see any bleeding from the liver edge. I removed the trochars under direct visualization good with stasis was noted. Patient had a small umbilical defect which I closed with interrupted sutures of #1 Nurolon's. Skin incisions were closed with subcuticular stitches of 4-0 Monocryl. Steri-Strips were applied sterile dressings were applied and the patient tolerated the procedure well. Admit VTE Documentation VTE Present on Admission: No VTE Mechan Device Prophylaxis: SCD's VTE Pharm Prophylaxis ordered?: No Reason prophylaxis not ordered:: Treatment Not Indicated
[2021-06-14] MEDS: Bupivacaine Mpf 0.5% 30 ML VIAL (15:41)
[2021-06-14] MEDS: ARIPiprazole 5 MG Tablet PO (22:41)
[2021-06-14] MEDS: Mirtazapine 15 MG Tablet 45 MG PO (22:41)
[2021-06-14] MEDS: Ondansetron 4 MG/2 ML Vial IV (22:46)
[2021-06-14] MEDS: oxyCODONE 5 MG Tablet PO (22:46)
[2021-06-14] MEDS: Albuterol 2.5 MG/3 ML VIAL.NEB. INHALATION (23:51)
[2021-06-15] VITALS (9 sets, daily range): BP systolic 100–146; BP diastolic 65–85; PULSE 81–98; RESP 12–20; TEMP 36.1–36.9; O2SAT 88–96
[2021-06-15] MEDS: Ibuprofen 400 MG Tablet PO ×6 (02:42→21:45)
[2021-06-15] MEDS: oxyCODONE 5 MG Tablet PO ×4 (05:50→20:47)
[2021-06-15] MEDS: Lactated Ringers 1,000 ML 75 ML IV (05:51)
[2021-06-15] MEDS: Ipratropium 0.5 MG/2.5 ML SOLUTION INHALATION ×3 (07:03→20:25)
[2021-06-15] MEDS: Budesonide Respules 0.5 MG/2 ML AMPUL.NEB. INHALATION ×2 (07:03→20:26)
[2021-06-15 08:14] LABS: Absolute Lymphocyte Count 1.46 X10^3/uL (0.83-4.51); Absolute Neutrophil Count 12.5 X10^3/uL (2.0-7.7); Basophil# 0.03 X10^3/uL; Basophil% 0.2 % (0-1); Lymphocyte # 1.46 X10^3/ul (0.83-4.51); Lymphocyte % 9.5 % (19-41); Mean Corp Hgb Conc 31.3 g/dL (32-36); Mean Corpuscular Hgb 27.5 pg (27.0-32.0); Mean Corpuscular Volume 87.9 fL (81-99); Mean Platelet Vol. 10.5 fl (6.2-12.0); Monocyte# 1.36 X10^3/uL; Monocyte% 8.8 % (0-10); NRBC Flagged by Analyzer 0 % (0-5); Neutrophil # 12.48 X10^3/uL (2.7-7.7); Neutrophil % 80.9 % (47-70); Platelet Count 236 K/mm3 (150-450); RBC Distribution Width CV 14.7 % (11.6-14.6); Red Blood Count 3.64 M/mm3 (4.2-5.4); White Blood Count 15.4 K/mm3 (4.4-11.0)
[2021-06-15 08:35] LABS: ALB/GLOB Ratio 0.6 RATIO (0.9-2.4); AST(SGOT) 73 U/L (15-37); Alanine Aminotransfer ALT/SGPT 92 U/L (13-56); Albumin, Serum 2.3 g/dL (3.2-5.0); Alkaline Phosphatase 107 U/L (45-117); Anion Gap 4 (5-15); BUN 6 mg/dL (7-18); BUN/Creat Ratio 6.7 RATIO (10-20); Calcium,Total 8.4 mg/dL (8.5-10.1); Chloride 103 mmol/L (98-107); Creatinine, Serum 0.89 mg/dL (0.55-1.02); EST Glomerular Filtration Rate 69 mL/min (>60); Est Glom Filt Rate - Afr Amer 84 mL/min (>60); Globulin 3.6 g/dL (2.2-4.2); Glucose 133 mg/dL (74-106); Potassium 4.1 mmol/L (3.5-5.1); Protein, Total 5.9 g/dL (6.4-8.2); Sodium Level 138 mmol/L (136-145)
[2021-06-15] MEDS: Creon 24,000 unit DR Capsule 3 CAP PO ×2 (09:32→18:12)
[2021-06-15] MEDS: Pantoprazole Sodium 40 MG Tablet PO (09:35)
[2021-06-15] MEDS: Cholecalciferol (VIT D3) 25 MCG TABLET (1,000 UNITS) 50 MCG PO (09:35)
--- NOTE | 2021-06-15 09:35 | PN.SURG_ITS ---
Subjective Subjective Tolerating a diet this morning. Passing flatus. Objective Data Objective Data ANGEL LUIS drain removed. Dressings are dry. Vital Signs: Vital Signs Temp Pulse Resp BP Pulse Ox 97.8 F 96 16 100/65 96 06/15/21 09:24 06/15/21 09:24 06/15/21 09:24 06/15/21 09:24 06/15/21 09:24 Oxygen Flow Rate (L/min) 4.5 Oxygen Delivery Method Nasal Cannula Weight: 130 lb 4.691 oz Body Mass Index (BMI) 23.1 Intake & Output: Intake and Output for Last 24 Hours 06/13/21 06/14/21 06/15/21 23:59 23:59 23:59 Intake Total 1281.25 / 1281.25 2736.00 / 2956.00 1042 / 1042 Output Total 40 / 290 620 / 620 Balance 1281.25 / 1281.25 2696.00 / 2666.00 422 / 422 Lab / Micro Data Result Diagrams: 06/15/21 08:05 06/15/21 08:05 Labs: Laboratory Results - last 24 hr 06/15/21 08:05: WBC 15.4 H, RBC 3.64 L, Hgb 10.0 L, Hct 32.0 L, MCV 87.9, MCH 27.5, MCHC 31.3 L, RDW Std Deviation 48.0 H, RDW Coeff of Min 14.7 H, Plt Count 236, MPV 10.5, Immature Gran % (Auto) 0.600, Neut % (Auto) 80.9 H, Lymph % (Auto) 9.5 L, [place] % (Auto) 8.8, Eos % (Auto) 0.0, Baso % (Auto) 0.2, Absolute Neuts (auto) 12.5 H, Absolute Lymphs (auto) 1.46, Nucleated RBC % 0 06/15/21 08:05: Sodium 138, Potassium 4.1, Chloride 103, Carbon Dioxide 31.0, Anion Gap 4 L, BUN 6 L, Creatinine 0.89, Estim Creat Clear Calc 57.00, Est GFR (MDRD) Af Amer 84, Est GFR (MDRD) Non-Af 69, BUN/Creatinine Ratio 6.7 L, Glucose 133 H, Calcium 8.4 L, Total Bilirubin 0.10 L, AST 73 H, ALT 92 H, Alkaline Phosphatase 107, Total Protein 5.9 L, Albumin 2.3 L, Globulin 3.6, Albumin/Globulin Ratio 0.6 L Micro: Microbiology 06/12/21 00:55 Nasal Secretion SARS-CoV-2 Antigen (Rapid) - Final Assessment & Plan Assessment/Plan (1) Acute cholecystitis: PLAN: Plan for discharge today.
--- NOTE | 2021-06-15 09:36 | DCINST_ITS ---
Discharge Instructions Procedure Gallbladder Diet Discharge Diet: Light diet - advance as tolerated Activity Discharge Activity: May Not Drive (for 2-3 days or while taking narcotic pain medications.) and - (Do not drive, work heavy equipment or sign legal documents for 24 hours.) May shower in (days): 1 (with the bandage in place.) Additional Activity Instructions:: Pain medication may cause nausea. You should typically eat light foods as you take your pain medications. Pain medication may also cause constipation. If this is a problem for you, please discuss with your doctor. Dressing / Incision Call your doctor if your incision/area has: Continuous Slow Oozing, Sudden Increased Bleeding, Increased Pain/ Swelling, Increased Redness and Foul Smelling Discharge Call your doctor if you observe: Fever of 101 or Higher Suture Line Care: Avoid Pulling/Pushing and Avoid Pinching/Bending Additional Dressing/Incision Instructions:: Leave operative bandaids on for 2 days. When you remove dressing, leave Steri-Strips on until your follow-up appointment, or until the Steri-Strips fall off on their own. Follow Up Care Please Follow Up With: Marge Graf PA-C When: Call office to schedule an appointment to be seen in 7 days after surgery. Test Results: Test results from this visit will be discussed in further detail at your follow-up appointment, if applicable. Discharge Plan Admission Admit Date/Time: 06/12/21 00:41 Attending Provider: Víctor Lopez Primary Care Provider: Theron Teague NP Instructions Patient Instructions: Cholecystectomy Discharge Orders/Prescriptions Prescriptions: New oxycodone-acetaminophen [Endocet] 5-325 mg tablet 1 tab PO Q6H PRN (Reason: pain) 5 Days Qty: 20 RF: 0 Continued albuterol sulfate [Ventolin HFA] 90 mcg/actuation HFA aerosol inhaler 2 puff INHALATION Q4H PRN (Reason: shortness of breath or wheezing) Qty: 18 RF: 6 cholecalciferol (vitamin D3) 2,000 UNIT capsule 50 mcg PO DAILY RF: 0 lorazepam 0.5 tablet 0.5 - 1 mg PO DAILY PRN PRN (Reason: Anxiety) RF: 0 xocphw-lqexggrs-srsttte 1 CAPSULE capsule 3 ea PO BID RF: 0 pantoprazole 40 MG tablet 40 mg PO DAILY RF: 0 lisinopril 5 MG tablet 10 mg PO DAILY RF: 0 mirtazapine 15 MG tablet,disintegrating 45 mg PO QHS RF: 0 buspirone 10 mg Tablet 10 mg PO TID PRN (Reason: Anxiety) RF: 0 aripiprazole [Abilify] 5 mg Tablet 5 mg PO QHS RF: 0 benzonatate [Tessalon Perles] 100 mg capsule 100 mg PO BID PRN (Reason: cough) Qty: 14 RF: 0 ibuprofen 400 mg Tablet 400 mg PO Q4H RF: 0 hydroxyzine pamoate 25 mg Capsule 25 mg PO QHS RF: 0 Trelegy Ellipta 100-62.5-25 mcg blister with device 1 inh inhalation DAILY RF: 0 Referrals / Follow Up: Theron Teague NP, ENGINEERING DEPARTMENT CHAIR-C [Primary Care Provider] - Marge Graf PA-C [PHYSICIAN ENTRY LEVEL TRUCK DRIVER] -
--- NOTE | 2021-06-15 09:39 | DS.PCM_ITS ---
Providers Date of Admission: 06/12/21 Primary Care Physician: KEN BeckerC Reason For Visit: CHOLECYSTITIS Diagnosis Discharge Diagnosis (1) Acute cholecystitis: Status: Acute Code(s): K81.0 - Acute cholecystitis Medications at Discharge Home Medications cholecalciferol (vitamin D3) 50 mcg PO DAILY 12/29/18 lorazepam 0.5 - 1 mg PO DAILY PRN PRN 04/19/19 [id number]-[id number]-yevwiwj 3 ea PO BID 12/10/19 lisinopril 10 mg PO DAILY 08/12/20 mirtazapine 45 mg PO QHS 08/12/20 pantoprazole 40 mg PO DAILY 08/12/20 albuterol sulfate 90 mcg/actuation aerosol inhaler 2 puff INHALATION Q4H PRN #18 g 11/14/20 aripiprazole [Abilify] 5 mg PO QHS 01/22/21 benzonatate [Tessalon Perles] 100 mg PO BID PRN #14 cap 01/22/21 buspirone 10 mg PO TID PRN 01/22/21 Trelegy Ellipta 1 inh INHALATION DAILY 06/12/21 hydroxyzine pamoate 25 mg PO QHS 06/12/21 ibuprofen 400 mg PO Q4H 06/12/21 oxycodone-acetaminophen [Endocet] 1 tab PO Q6H PRN 5 Days #20 tab 06/15/21 Hospital Course Operations cholecystecomy Procedures None Summary of Care Provided Hospital Course: MACKENZIE KANG, is a 56 F who presents with three day history of RUQ abdominal pain. She has a history of ETOH abuse, hasn't had ETOH since November. She has noted intermittent RUQ abdominal pain for the past two years. However, in the past three days, the pain has been very severe, feels like having a baby, pressure and sharp pain in the RUQ abdomen. But she would note this pain mostly at night, has minimal to no pain during the day. Feels like that it is after evening meal. She denies fevers. Has nausea, but denies vomiting. Presently denies any abdominal pain. She states that she has had a history of pancreatitis, had EGD previously Admits to TOB use Work up in ED CT scan - thickened gallbladder wall, no stones US - thickened gallbladder wall, no stones initial WBC was 21.3K but now 11K, normal LFTs Patient subsequently underwent a laparoscopic cholecystectomy on 06/14/2021. Postoperatively his she had a drain which was subsequently removed the next day and was discharged home in good condition. Physical Exam Const alert, oriented x3 and no apparent distress General Appearance: cooperative and comfortable GI soft to palpation and non-tender Weight / BMI Weight Weight: 130 lb 4.691 oz Body Mass Index (BMI) 23.1 ABG / Lab / Microbiology Data Result Diagrams: 06/15/21 08:05 06/15/21 08:05 Laboratory: Laboratory Results - last 24 hr 06/15/21 08:05: WBC 15.4 H, RBC 3.64 L, Hgb 10.0 L, Hct 32.0 L, MCV 87.9, MCH 27.5, MCHC 31.3 L, RDW Std Deviation 48.0 H, RDW Coeff of Min 14.7 H, Plt Count 236, MPV 10.5, Immature Gran % (Auto) 0.600, Neut % (Auto) 80.9 H, Lymph % (Auto) 9.5 L, [place] % (Auto) 8.8, Eos % (Auto) 0.0, Baso % (Auto) 0.2, Absolute Neuts (auto) 12.5 H, Absolute Lymphs (auto) 1.46, Nucleated RBC % 0 06/15/21 08:05: Sodium 138, Potassium 4.1, Chloride 103, Carbon Dioxide 31.0, Anion Gap 4 L, BUN 6 L, Creatinine 0.89, Estim Creat Clear Calc 57.00, Est GFR (MDRD) Af Amer 84, Est GFR (MDRD) Non-Af 69, BUN/Creatinine Ratio 6.7 L, Glucose 133 H, Calcium 8.4 L, Total Bilirubin 0.10 L, AST 73 H, ALT 92 H, Alkaline Phosphatase 107, Total Protein 5.9 L, Albumin 2.3 L, Globulin 3.6, Albumin/Globulin Ratio 0.6 L Microbiology: Microbiology 06/12/21 00:55 Nasal Secretion SARS-CoV-2 Antigen (Rapid) - Final D/C Instructions Discharge Diet: Light diet - advance as tolerated May shower in (days): 1 (with the bandage in place.) Additional Activity Instructions: Pain medication may cause nausea. You should t ypically eat light foods as you take your pain medications. Pain medication may also cause constipation. If this is a problem for you, please discuss with your doctor. Call your doctor if your incision/area has: Continuous Slow Oozing, Sudden Increased Bleeding, Increased Pain/ Swelling, Increased Redness and Foul Smelling Discharge Call your doctor if you observe: Fever of 101 or Higher Suture Line Care: Avoid Pulling/Pushing and Avoid Pinching/Bending Additional Dressing/Incision Instructions: Leave operative bandaids on for 2 days. When you remove dressing, leave Steri-Strips on until your follow-up appointment, or until the Steri-Strips fall off on their own. Please Follow Up With: Marge Graf PA-C When: Call office to schedule an appointment to be seen in 7 days after surgery. Meaningful Use Info Meaningful Use Diagnoses (Choose all that apply): None applicable Discharge Plan Admission Admit Date/Time: 06/12/21 00:41 Attending Provider: Víctor Lopez Primary Care Provider: Theron Teague NP Instructions Patient Instructions: Cholecystectomy Discharge Orders/Prescriptions Prescriptions: New oxycodone-acetaminophen [Endocet] 5-325 mg tablet 1 tab PO Q6H PRN (Reason: pain) 5 Days Qty: 20 RF: 0 Continued albuterol sulfate [Ventolin HFA] 90 mcg/actuation HFA aerosol inhaler 2 puff INHALATION Q4H PRN (Reason: shortness of breath or wheezing) Qty: 18 RF: 6 cholecalciferol (vitamin D3) 2,000 UNIT capsule 50 mcg PO DAILY RF: 0 lorazepam 0.5 tablet 0.5 - 1 mg PO DAILY PRN PRN (Reason: Anxiety) RF: 0 bmraxr-jtcmxwbl-tidjmnz 1 CAPSULE capsule 3 ea PO BID RF: 0 pantoprazole 40 MG tablet 40 mg PO DAILY RF: 0 lisinopril 5 MG tablet 10 mg PO DAILY RF: 0 mirtazapine 15 MG tablet,disintegrating 45 mg PO QHS RF: 0 buspirone 10 mg Tablet 10 mg PO TID PRN (Reason: Anxiety) RF: 0 aripiprazole [Abilify] 5 mg Tablet 5 mg PO QHS RF: 0 benzonatate [Tessalon Perles] 100 mg capsule 100 mg PO BID PRN (Reason: cough) Qty: 14 RF: 0 ibuprofen 400 mg Tablet 400 mg PO Q4H RF: 0 hydroxyzine pamoate 25 mg Capsule 25 mg PO QHS RF: 0 Trelegy Ellipta 100-62.5-25 mcg blister with device 1 inh inhalation DAILY RF: 0 Referrals / Follow Up: Theron Teague NP, WORKFORCE SERVICES REPRESENTATIVE-C [Primary Care Provider] - Marge Graf PA-C [PHYSICIAN [employer]] -
[2021-06-15] MEDS: LORazepam 0.5 MG Tablet PO ×2 (13:17→21:12)
[2021-06-15] MEDS: Mirtazapine 15 MG Tablet 45 MG PO (20:46)
[2021-06-15] MEDS: ARIPiprazole 5 MG Tablet PO (20:46)
[2021-06-16 02:53] VITALS: BP 103/74; PULSE 80; RESP 18; TEMP 36.6; O2SAT 94
[2021-06-16] MEDS: Ibuprofen 400 MG Tablet PO ×2 (02:53→06:05)
[2021-06-16] MEDS: oxyCODONE 5 MG Tablet PO (06:06)
--- NOTE | 2021-06-16 07:26 | PN.SURG_ITS ---
Subjective Subjective Patient subjectively feels better today. Abdominal pain is improving. Held her discharge secondary to being on 4 L of oxygen. Objective Data Objective Data Abdomen is soft appropriately tender at incisions. Vital Signs: Vital Signs Temp Pulse Resp BP Pulse Ox 97.8 F 80 18 103/74 94 06/16/21 02:53 06/16/21 02:53 06/16/21 02:53 06/16/21 02:53 06/16/21 02:53 Oxygen Flow Rate (L/min) [ 4 AMBULATING with Oxygen #2] Oxygen Flow Rate (L/min) [ 2 AMBULATING with Oxygen #1] Oxygen Flow Rate (L/min) [At 2 REST with Oxygen] Oxygen Flow Rate (L/min) 4 Oxygen Delivery Method Nasal Cannula Weight: 130 lb 4.691 oz Body Mass Index (BMI) 23.1 Intake & Output: Intake and Output for Last 24 Hours 06/14/21 06/15/21 06/16/21 23:59 23:59 23:59 Intake Total 2736.00 / 2956.00 3231.5 / 3581.5 650 / 650 Output Total 40 / 290 1120 / 1520 400 / 400 Balance 2696.00 / 2666.00 2111.5 / 2061.5 250 / 250 Lab / Micro Data Result Diagrams: 06/15/21 08:05 06/15/21 08:05 Labs: Laboratory Results - last 24 hr 06/15/21 08:05: WBC 15.4 H, RBC 3.64 L, Hgb 10.0 L, Hct 32.0 L, MCV 87.9, MCH 27.5, MCHC 31.3 L, RDW Std Deviation 48.0 H, RDW Coeff of Min 14.7 H, Plt Count 236, MPV 10.5, Immature Gran % (Auto) 0.600, Neut % (Auto) 80.9 H, Lymph % (Auto) 9.5 L, [place] % (Auto) 8.8, Eos % (Auto) 0.0, Baso % (Auto) 0.2, Absolute Neuts (auto) 12.5 H, Absolute Lymphs (auto) 1.46, Nucleated RBC % 0 06/15/21 08:05: Sodium 138, Potassium 4.1, Chloride 103, Carbon Dioxide 31.0, Anion Gap 4 L, BUN 6 L, Creatinine 0.89, Estim Creat Clear Calc 57.00, Est GFR (MDRD) Af Amer 84, Est GFR (MDRD) Non-Af 69, BUN/Creatinine Ratio 6.7 L, Glucose 133 H, Calcium 8.4 L, Total Bilirubin 0.10 L, AST 73 H, ALT 92 H, Alkaline Phosphatase 107, Total Protein 5.9 L, Albumin 2.3 L, Globulin 3.6, Albumin/Globulin Ratio 0.6 L Micro: Microbiology 06/14/21 14:35 Aspirate - Abdominal Gram Stain - Final 06/14/21 14:35 Aspirate - Abdominal Wound Culture - Preliminary Gram negative karis 06/12/21 00:55 Nasal Secretion SARS-CoV-2 Antigen (Rapid) - Final Assessment & Plan Assessment/Plan (1) Acute cholecystitis: PLAN: We will discharge her today on 4 L of oxygen. She will follow back up in the office in 1 week.
[2021-06-16 07:41] VITALS: BP 121/86; PULSE 74; RESP 18; TEMP 36.5; O2SAT 95
[2021-06-16] MEDS: Creon 24,000 unit DR Capsule 3 CAP PO (07:48)
[2021-06-16] MEDS: LORazepam 0.5 MG Tablet PO (07:54)
[2021-06-16 08:11] VITALS: O2SAT 89
--- NOTE | 2021-06-17 18:18 | CASEMGMT ---
SARWAT LOMELI Discharge Follow-up Phone Call: URBANO: Anjana Strata: 3 Call Date: 06/17/21 Discharge Date: 06/16/21 Time of Call: 1817 Admitting Diagnosis: acute cholecystitis This RN CM contacted pt via phone for discharge follow-up. Pt states she has been sore but otherwise doing well since discharge. Pt states she is eating and drinking without difficulty. Pt states she did not fill her pain medication prescription until today and was tolerating the pain with just ibuprofen. Pt states she has a follow-up appointment scheduled with Dr. Lopez on Thursday and she will call tomorrow to schedule with Dr. Perdue. Pt denies any questions regarding her discharge instructions and denies any concerns. Lisa Hale RN CM
== END 2021-06-16 09:07 | disposition home or self-care (01) | DRG 263 ==
LOC: ED 06-12 00:42 → MS3 06-12 01:00
PROVIDERS: Emergency Medicine; Admitting Provider Surgery; Emergency Provider Emergency Medicine; PCP Nurse Practitioner Primary Care; Visit Provider Surgery
PROC: 0FT44ZZ Resection of Gallbladder, Percutaneous Endoscopic Approach (ICD-10-PCS; CPT 47610; principal; 2021-06-14 14:15)
DX: K81.2 Acute cholecystitis with chronic cholecystitis (principal); D64.9 Anemia, unspecified; E78.00 Pure hypercholesterolemia, unspecified; F17.210 Nicotine dependence, cigarettes, uncomplicated; F32.9 Major depressive disorder, single episode, unspecified; F41.9 Anxiety disorder, unspecified; I10 Essential (primary) hypertension; K21.9 Gastro-esophageal reflux disease without esophagitis; J44.9 Chronic obstructive pulmonary disease, unspecified; K58.0 Irritable bowel syndrome with diarrhea; Z98.51 Tubal ligation status; Z83.3 Family history of diabetes mellitus; Z82.49 Family history of ischemic heart disease and other diseases of the circulatory system; Z88.0 Allergy status to penicillin
CPT/HCPCS: 36415; 74177; 76705; 78227; 80048; 80053; 81001; 83605; 83690; 85025; 87070; 87075; 87077; 87186; 87205; 87426; 88304; 93005; 94640; 99251; 99284; 99406; A9537; J7030; J7120; Q9967; A4216; G0463; J2405

== ENCOUNTER 2022-03-03 11:34 | Emergency (ER) | payer MEDICAID, SELFPAY ==
[2022-03-03 11:36] VITALS: BP 108/81; PULSE 94; RESP 18; TEMP 36.6; O2SAT 90; BMI 23.9
--- NOTE | 2022-03-03 12:51 | EKG12_ITS ---
Test Reason : Blood Pressure : / mmHG Vent. Rate : 086 BPM Atrial Rate : 086 BPM P-R Int : 172 ms QRS Dur : 070 ms QT Int : 384 ms P-R-T Axes : 070 081 075 degrees QTc Int : 459 ms Normal sinus rhythm Low voltage QRS (Limb Leads) Confirmed by OUSMANE MENENDEZ, GRUPO ([id number]), graphics editor CATHERINE PIERCE ([id number]) on 03/04/2022 1:42:57 PM Referred By: PL Confirmed By:GRUPO ROMEO MD
[2022-03-03 12:53] VITALS: O2SAT 93
--- NOTE | 2022-03-03 12:54 | ED.VIS.DYS ---
HPI History of Present Illness Chief Complaint: Shortness of Breath Informant: patient Narrative Narrative: Patient presents with a feeling that she might have pneumonia. She has been coughing more for the last 4 days. She has been wheezing more. Of note, she has a nebulizer but is out of medicines for it. Her last steroid use was 1 and half to 2 months ago. She is coughing up thick yellow sputum which is a change and different than her normal. She has had hot and cold sensations although has not taken her temperature. She states her lungs are tight but she is not really having chest pain. No hemoptysis. Her appetite is down but she still able to eat. Her drinking is normal. She also admits that her nose has been running and she does have allergies. The runny nose made it hard to use her oxygen. She is normally on 2 L of oxygen for COPD. She is still smoking and was counseled to quit. [facility] Medical History Abdominal pain Alcohol abuse Alcoholic hepatitis Anemia Anxiety and depression Arthritis Asthma Benign hypertension Chronic pancreatitis COPD (chronic obstructive pulmonary disease) Diarrhea GERD (gastroesophageal reflux disease) History of back problems HPV (human papilloma virus) infection Nicotine dependence, cigarettes, uncomplicated Tobacco abuse Unintentional weight loss Home Medications cholecalciferol (vitamin D3) 50 mcg PO DAILY 12/29/18 [History Last Taken 06/11/21] lorazepam 0.5 - 1 mg PO DAILY PRN PRN 04/19/19 [History Last Taken 06/10/21 21:00] iaikju-uqukapjz-lkblwmi 3 ea PO BID 12/10/19 [History Last Taken 06/11/21] pantoprazole 40 mg PO DAILY 08/12/20 [History Last Taken 06/11/21] albuterol sulfate 90 mcg/actuation aerosol inhaler 2 puff INHALATION Q4H PRN #18 g 11/14/20 [Rx Last Taken Unknown] aripiprazole [Abilify] 5 mg PO QHS 01/22/21 [History Last Taken 06/10/21] benzonatate [Tessalon Perles] 100 mg PO BID PRN #14 cap 01/22/21 [Rx Last Taken Unknown] buspirone 10 mg PO TID PRN 01/22/21 [History Last Taken Unknown] hydroxyzine pamoate 25 mg PO QHS 06/12/21 [History Last Taken 06/10/21] ibuprofen 400 mg PO Q4H 06/12/21 [History Last Taken Unknown] albuterol sulfate 2.5 mg INHALATION Q4H PRN #25 vial 08/30/21 [Rx Last Taken Unknown] fluticasone fur. 100 mcg-umeclid 62.5 mcg-vilant 25 mcg inhalat.powder 1 inh INHALATION DAILY #60 ea 09/10/21 [Rx Last Taken Unknown] doxycycline hyclate 100 mg tablet 100 mg PO BID #20 tab 01/16/22 [Rx Last Taken Unknown] lisinopril 10 mg tablet 10 mg PO DAILY tab 01/16/22 [History Last Taken Unknown] melatonin 10 mg tablet,extended release 10 mg PO DAILY tab 01/16/22 [History Last Taken Unknown] mirtazapine 45 mg tablet 45 mg PO DAILY tab 01/16/22 [History Last Taken Unknown] simvastatin 20 mg tablet 20 mg PO DAILY tab 01/16/22 [History Last Taken Unknown] prednisone 10 mg tablet 10 mg PO DAILY #20 tab 02/06/22 [Rx Last Taken Unknown] albuterol sulfate 2.5 mg INHALATION Q4H PRN #25 vial 03/03/22 [Rx Last Taken Unknown] benzonatate 200 mg PO TID PRN PRN #20 cap 03/03/22 [Rx Last Taken Unknown] levofloxacin 500 mg PO DAILY #7 tab 03/03/22 [Rx Last Taken Unknown] prednisone 60 mg PO DAILY #15 tab 03/03/22 [Rx Last Taken Unknown] Allergy/AdvReac Type Severity Reaction Status Date / Time Penicillins Allergy Hives Verified 01/16/22 09:31 hydrocodone [From [place]an] AdvReac Itching Verified 01/16/22 09:31 Family History Mother Diabetes Hypertension Heart disease High cholesterol Arthritis Thyroid disorder Brother Hypertension Sister Cancer cervical Thyroid disorder Father Kidney disease Daughter Thyroid disorder Surgical History History of appendectomy History of colonoscopy History of tubal ligation Social History Smoking Status: Current every day smoker tobacco type: cigarettes Tobacco: How many years used: 30 second hand exposure: Yes alcohol intake: current alcohol intake frequency: 3 or more drinks per day Alcohol type: beer substance use type: does not use caffeine: Yes ROS ROS ED Constitutional Constitutional ED: Reports chills and fever(s) Eyes Eyes: Denies blurry vision ENT ENT ED: Reports rhinorrhea; Denies sore throat Cardiovascular Cardiovascular: Denies chest pain or palpitations Respiratory/Chest Respiratory/Chest: Reports cough, dyspnea and sputum Gastrointestinal Gastrointestinal: Denies nausea or vomiting Genitourinary Genitourinary ED: Denies dysuria Musculoskeletal Musculoskeletal: Denies myalgias Integumentary Denies rash Neurologic Neurologic: Denies headache(s) Psychiatric Psychiatric: Denies anxiety or depression Endocrine Endocrinology: Denies polydipsia or polyuria Hematologic/Lymphatic Hematologic/Lymphatic: Denies easy bleeding or easy bruising Allergic/Immunologic Allergic/Immunologic ED: Denies urticaria EXAM Physical Exam Const Vital Signs: 03/03/22 11:36 03/03/22 12:48 03/03/22 12:53 Temperature 97.8 F Temperature Source Temporal Pulse Rate 94 Respiratory Rate 18 Respiratory Effort Non-Labored Short of Breath Respiratory Pattern Blood Pressure 108/81 H Blood Pressure Mean 90 Pulse Ox 90 93 Oxygen Delivery Method Room Air Room Air Oxygen Flow Rate (L/min) 03/03/22 13:01 03/03/22 14:15 03/03/22 14:16 Temperature Temperature Source Pulse Rate 90 91 Respiratory Rate 20 H 16 Respiratory Effort Respiratory Pattern Tachypnea Blood Pressure 108/84 H Blood Pressure Mean 92 Pulse Ox 86 94 Oxygen Delivery Method Room Air Nasal Cannula Oxygen Flow Rate (L/min) 2 03/03/22 14:20 Temperature Temperature Source Pulse Rate Respiratory Rate Respiratory Effort Respiratory Pattern Blood Pressure Blood Pressure Mean Pulse Ox 94 Oxygen Delivery Method Nasal Cannula Oxygen Flow Rate (L/min) 2 Positive well nourished General Appearance ED: NAD HEENT Reports moist mucous membranes Eyes General Eye ED: Negative for pale conjunctiva or scleral icterus Neck no meningeal signs Resp normal respiratory effort Auscultation: wheezes Cardio regular rate and regular rhythm GI non-tender Palpation: soft Back/Spine no CVA tenderness Extremity normal to inspection General Extremety ED: Negative for edema or tenderness General Extremity: Negative for edema Neuro oriented x3 Sensorium / Orientation: alert Psych mental status grossly normal Skin Rashes: no rashes MDM MDM MDM Narrative Medical decision making narrative: Patient's blood work showed just a mild rise of her white count at 11.8. Hemoglobin is normal. Platelets are normal. Electrolytes show no marked abnormalities. Glucose is just a little bit up at 149. Troponin is normal at 14. X-ray shows focal infiltrate on the left lobe. Patient's recheck. She is breathing better. She is 98% sat on her 2 L. She was 90 to 91% on room air before. She would like to go home. I think this is a reasonable option. We will get her started on Levaquin. I will write for something for cough. I will write for some albuterol for her nebulizer but she also has MDIs. We discussed reasons to return that would include dyspnea, high fevers, vomiting and unable to take meds. Lab Data Attestation: I reviewed the patient's lab results. Labs: Laboratory Results - last 24 hr 03/03/22 03/03/22 13:09 13:09 WBC 11.8 H RBC 4.79 Hgb 13.4 Hct 42.8 MCV 89.4 MCH 28.0 MCHC 31.3 L RDW Std Deviation 45.1 H RDW Coeff of Min 13.8 Plt Count 251 MPV 10.4 Immature Gran % (Auto) 0.800 Neut % (Auto) 66.0 Lymph % (Auto) 21.6 [place] % (Auto) 8.4 Eos % (Auto) 2.4 Baso % (Auto) 0.8 Absolute Neuts (auto) 7.8 H Absolute Lymphs (auto) 2.54 Nucleated RBC % 0 Sodium 139 Potassium 3.6 Chloride 107 Carbon Dioxide 27.0 Anion Gap 5 BUN 4 L Creatinine 0.60 Estim Creat Clear Calc 84.54 Est GFR (MDRD) Af Amer 131 Est GFR (MDRD) Non-Af 109 BUN/Creatinine Ratio 6.7 L Glucose 149 H Calcium 9.0 Troponin I High Sens 14 Radiography Diagnostic Testing: Clinical Impression(s) from Imaging Studies Chest X-Ray 03/03/22 13:18 IMPRESSION: Focal infiltrate in the posterior medial segment of the left lower lobe. Electronically Signed: Zaid Justice MD at 13:49 EDT , EKG Initial EKG: Comments: EKG done for dyspnea read by me shows normal sinus rhythm with overall rate of 86. No acute ST elevation. Mild nonspecific changes. No ectopy. TX intervals, QRS duration and QTc normal. Discharge Plan Triage Chief Complaint: Shortness of Breath ED Provider: Valeriano Moreno Dx/Rx/DC Orders Clinical Impression: Community acquired pneumonia, COPD with acute exacerbation Instructions: ED COPD Flare, ED Pneumonia (Adult) Prescriptions: New prednisone 20 MG tablet 60 mg PO DAILY Qty: 15 RF: 0 benzonatate [benzonatate] 100 MG capsule 200 mg PO TID PRN PRN (Reason: Cough) Qty: 20 RF: 0 levofloxacin [levofloxacin] 500 MG tablet 500 mg PO DAILY Qty: 7 RF: 0 albuterol sulfate 2.5 mg /3 mL (0.083 %) solution for nebulization 2.5 mg inhalation Q4H PRN Qty: 25 RF: 3 No Action albuterol sulfate [Ventolin HFA] 90 mcg/actuation HFA aerosol inhaler 2 puff INHALATION Q4H PRN (Reason: shortness of breath or wheezing) Qty: 18 RF: 6 albuterol sulfate 2.5 mg /3 mL (0.083 %) solution for nebulization 2.5 mg inhalation Q4H PRN Qty: 25 RF: 1 lisinopril 10 mg tablet 10 mg PO DAILY RF: 0 mirtazapine 45 mg tablet 45 mg PO DAILY RF: 0 melatonin 10 mg tablet extended release 10 mg PO DAILY RF: 0 simvastatin 20 mg tablet 20 mg PO DAILY RF: 0 doxycycline hyclate 100 mg tablet 100 mg PO BID Qty: 20 RF: 0 cholecalciferol (vitamin D3) 2,000 UNIT capsule 50 mcg PO DAILY RF: 0 lorazepam 0.5 tablet 0.5 - 1 mg PO DAILY PRN PRN (Reason: Anxiety) RF: 0 fumwoe-mkuldzoo-gidtdew 1 CAPSULE capsule 3 ea PO BID RF: 0 pantoprazole 40 MG tablet 40 mg PO DAILY RF: 0 buspirone 10 mg Tablet 10 mg PO TID PRN (Reason: Anxiety) RF: 0 aripiprazole [Abilify] 5 mg Tablet 5 mg PO QHS RF: 0 benzonatate [Tessalon Perles] 100 mg capsule 100 mg PO BID PRN (Reason: cough) Qty: 14 RF: 0 ibuprofen 400 mg Tablet 400 mg PO Q4H RF: 0 hydroxyzine pamoate 25 mg Capsule 25 mg PO QHS RF: 0 Trelegy Ellipta 100-62.5-25 mcg blister with device 1 inh inhalation DAILY Qty: 60 RF: 6 prednisone 10 mg tablet 10 mg PO DAILY Qty: 20 RF: 0 Primary Care Provider: Theron Teague NP Referrals: Theron Teague NP, HEAD OF OPERATION AND LOGISTICS-C [Primary Care Provider] - 3-5 Days Disposition Disposition: Home, Self Care
[2022-03-03] MEDS: Albuterol 2.5 MG/3 ML VIAL.NEB. INHALATION (13:00)
[2022-03-03] MEDS: Ipratropium/Albuterol Sulfate 3 ML AMPUL.NEB INHALATION (13:00)
[2022-03-03 13:01] VITALS: PULSE 90; RESP 20
[2022-03-03] MEDS: MethylPREDNISolone 125 MG/2 ML Vial IV (13:11)
[2022-03-03 13:18] LABS: Absolute Lymphocyte Count 2.54 X10^3/uL (0.83-4.51); Absolute Neutrophil Count 7.8 X10^3/uL (2.0-7.7); Basophil# 0.09 X10^3/uL; Basophil% 0.8 % (0-1); Eosinophil# 0.28 X10^3/uL; Eosinophils% 2.4 % (0-5); Hematocrit 42.8 % (37-47); Hemoglobin 13.4 g/dL (12.0-15.0); Lymphocyte # 2.54 X10^3/ul (0.83-4.51); Lymphocyte % 21.6 % (19-41); Mean Corp Hgb Conc 31.3 g/dL (32-36); Mean Corpuscular Volume 89.4 fL (81-99); Mean Platelet Vol. 10.4 fl (6.2-12.0); Monocyte# 0.99 X10^3/uL; Monocyte% 8.4 % (0-10); NRBC Flagged by Analyzer 0 % (0-5); Neutrophil # 7.76 X10^3/uL (2.7-7.7); Platelet Count 251 K/mm3 (150-450); RBC Distribution Width CV 13.8 % (11.6-14.6); RBC Distribution Width SD 45.1 fl (35.1-43.9); Red Blood Count 4.79 M/mm3 (4.2-5.4); White Blood Count 11.8 K/mm3 (4.4-11.0)
--- NOTE | 2022-03-03 13:18 | RAD_ITS ---
STUDY: X-RAY CHEST REASON FOR EXAM: Female, 56 years old. SOB TECHNIQUE: Single AP portable view of the chest. COMPARISON: Comparison is made with prior study dated 01/22/2021. FINDINGS: EKG electrodes are seen. Hyperinflation. Focal infiltrate in the posterior mediastinum at the left lower lobe. Normal size heart. Normal mediastinum and [place]. Normal visualized pulmonary arteries. There is atherosclerotic calcification of the aortic arch with tortuosity. There are diffuse degenerative changes of the visualized thoracic spine. Normal visualized ribs, clavicles, and shoulders. There is no demonstrated abnormality of the visualized soft tissue structures of the upper abdomen. RAD/Chest 1 View (Portable) IMPRESSION: Focal infiltrate in the posterior medial segment of the left lower lobe. Electronically Signed: Zaid Justice MD at 13:49 EDT ,
[2022-03-03 13:37] LABS: Anion Gap 5 (5-15); BUN 4 mg/dL (7-18); BUN/Creat Ratio 6.7 RATIO (10-20); Chloride 107 mmol/L (98-107); EST Glomerular Filtration Rate 109 mL/min (>60); Est Glom Filt Rate - Afr Amer 131 mL/min (>60); Estimated Creatinine Clearance 84.54 ml/min; Glucose 149 mg/dL (74-106); Potassium 3.6 mmol/L (3.5-5.1); Sodium Level 139 mmol/L (136-145); Troponin-I HS 14 pg/mL (3.0-54.0)
[2022-03-03 14:15] VITALS: O2SAT 86
[2022-03-03 14:16] VITALS: BP 108/84; PULSE 91; RESP 16; O2SAT 94
[2022-03-03 14:20] VITALS: O2SAT 94
== END 2022-03-03 15:48 | disposition home or self-care (01) ==
PROVIDERS: Emergency Provider Emergency Medicine; PCP Nurse Practitioner Primary Care; Visit Provider Emergency Medicine
DX: J18.9 Pneumonia, unspecified organism (principal); J44.0 Chronic obstructive pulmonary disease with (acute) lower respiratory infection; J44.1 Chronic obstructive pulmonary disease with (acute) exacerbation; I10 Essential (primary) hypertension; F17.210 Nicotine dependence, cigarettes, uncomplicated; Z99.81 Dependence on supplemental oxygen; F32.A Depression, unspecified; F41.9 Anxiety disorder, unspecified; K21.9 Gastro-esophageal reflux disease without esophagitis; Z79.899 Other long term (current) drug therapy
CPT/HCPCS: 71045; 80048; 84484; 85025; 87428; 93005; 94640; 96374; 99284; A4216

== ENCOUNTER → 2022-05-28 | Outpatient (CLI) | payer MEDICAID, SELFPAY ==
--- NOTE | 2022-05-28 13:00 | CT_ITS ---
STUDY: LOW DOSE CT LUNG CANCER SCREENING REASON FOR EXAM: Female, 57 years old. Smoker and gt; 30 pack years RADIATION DOSAGE (If Supplied By Facility): CTDIvol = ( 3.02 ) mGy, DLP = ( 101.18 ) mGycm TECHNIQUE: No contrast was administered. Low dose technique was utilized (average mAS-38 and kVp 120). 1.25 mm axial source images with a slice interval of 1.25-mm were reconstructed in lung windows. 2.5 mm axial source images with a slice interval of 2.5-mm were reconstructed in lung windows. 5.0 mm axial source images with a slice interval of 5.0-mm were reconstructed in soft tissue windows. COMPARISON: Comparison is made with prior study dated 05/27/2021. NODULES: No suspicious nodular density is seen. Emphysema: Hyperinflation. Emphysematous changes with centrilobular emphysema more prominent in the upper lobes. Endobronchial lesion: None Aorta: Atherosclerotic plaque formation. CORONARY ARTERIES: Coronary artery calcification is seen. Heart: Prior mitral valve replacement. Pulmonary artery: Mediastinal nodes: Small benign-appearing mediastinal lymph nodes. Other chest and abdominal findings: Degenerative changes of the thoracic vertebrae. CT/Low Dose CT Lung Screening IMPRESSION: Lung-RADS category 2 - Continue annual screening with LDCT in 12 months. IMPORTANT NOTES FOR USE: ACR Lung-RADS Version 1.1 Assessment Categories Release Date: 2018 Category: Coded 0-4 bases on nodule(s) with highest degree of suspicion. Negative screen is defined as categories 1 and 2; a positive screen is defined as categories 3 and 4. Category 3 and 4A nodules that are unchanged on interval CT should be coded as category 2, and individuals returned to screening in 12 months. Category 4X: Category 3 or 4 nodules with additional imaging findings that increase the suspicion of lung cancer, such as spiculation, GGN that doubles in size in 1 year, enlarged lymph notes, etc. Category Modifiers: S (significant finding unrelated to lung cancer) Electronically Signed: Zaid Justice MD at 13:09 EDT ,
== END | disposition home or self-care (01) ==
LOC: CT 11:42
PROVIDERS: PCP Nurse Practitioner Primary Care; Visit Provider Nurse Practitioner Acute Care
DX: Z12.2 Encounter for screening for malignant neoplasm of respiratory organs (principal); F17.210 Nicotine dependence, cigarettes, uncomplicated
CPT/HCPCS: 71271

== ENCOUNTER 2022-08-22 16:02 | Emergency (ER) | payer MEDICAID, SELFPAY ==
[2022-08-22] VITALS (11 sets, daily range): BP systolic 87–159; BP diastolic 76–91; PULSE 86–100; RESP 18–28; TEMP 36.6; O2SAT 80–97; BMI 23.5
--- NOTE | 2022-08-22 16:38 | EKG12_ITS ---
Test Reason : SOB Blood Pressure : / mmHG Vent. Rate : 085 BPM Atrial Rate : 085 BPM P-R Int : 170 ms QRS Dur : 072 ms QT Int : 384 ms P-R-T Axes : 081 079 076 degrees QTc Int : 456 ms Normal sinus rhythm Normal ECG Confirmed by CLIFTON MENENDEZ, COCO ([id number]), editor sound CATHERINE PIERCE ([id number]) on 08/25/2022 11:23:59 AM Referred By: Confirmed By:COCO LAZO MD
--- NOTE | 2022-08-22 16:40 | EDS_ITS ---
HPI History of Present Illness Chief Complaint: Shortness of Breath Narrative Narrative: 57-year-old female with history of COPD, emphysema presenting with shortness of breath for the last several days. She also admits to a fever with a T-max of 101. She states this is break with Tylenol. Last fever was this morning. Patient admits to cough without paroxysmal sputum. Patient states he was try to get through the holiday weekend but states he still having trouble breathing. She states has not had trouble eating or drinking. She does admit to some lightheadedness and weakness. She is not complaining of chest pain. [facility] Medical History Abdominal pain Alcohol abuse Alcoholic hepatitis Anemia Anxiety and depression Arthritis Asthma Benign hypertension Chronic pancreatitis COPD (chronic obstructive pulmonary disease) Diarrhea GERD (gastroesophageal reflux disease) History of back problems HPV (human papilloma virus) infection Nicotine dependence, cigarettes, uncomplicated Tobacco abuse Unintentional weight loss Home Medications cholecalciferol (vitamin D3) 50 mcg (2,000 unit) capsule 50 mcg PO DAILY SUPPLEMENT 12/29/18 [History Last Taken 06/11/21] lorazepam 0.5 mg tablet 0.5 - 1 mg PO DAILY PRN PRN Anxiety 04/19/19 [History Last Taken 06/10/21 21:00] [id number] 24,000-76,000-120,000 unit capsule,delayed rel 3 ea PO BID pancreas 12/10/19 [History Last Taken 06/11/21] pantoprazole 40 mg tablet,delayed release 40 mg PO DAILY GERD 08/12/20 [History Last Taken 06/11/21] albuterol sulfate 90 mcg/actuation aerosol inhaler (Ventolin HFA) 2 puff inhalation Q4H PRN shortness of breath or wheezing #18 grams 11/14/20 [Rx Last Taken Unknown] aripiprazole 5 mg tablet (Abilify) 5 mg PO QHS mood 01/22/21 [History Last Taken 06/10/21] benzonatate 100 mg capsule (Tessalon Perles) 100 mg PO BID PRN cough #14 caps 01/22/21 [Rx Last Taken Unknown] buspirone 10 mg tablet 10 mg PO TID PRN Anxiety 01/22/21 [History Last Taken Unknown] hydroxyzine pamoate 25 mg capsule 25 mg PO QHS sleep 06/12/21 [History Last Taken 06/10/21] ibuprofen 400 mg tablet 400 mg PO Q4H pain 06/12/21 [History Last Taken Unknown] fluticasone fur. 100 mcg-umeclid 62.5 mcg-vilant 25 mcg inhalat.powder (Trelegy Ellipta) 1 inh inhalation DAILY COPD #60 ea 09/10/21 [Rx Last Taken Unknown] doxycycline hyclate 100 mg tablet 100 mg PO BID #20 tabs 01/16/22 [Rx Last Taken Unknown] lisinopril 10 mg tablet 10 mg PO DAILY 01/16/22 [History Last Taken Unknown] melatonin 10 mg tablet,extended release 10 mg PO DAILY 01/16/22 [History Last Taken Unknown] mirtazapine 45 mg tablet 45 mg PO DAILY 01/16/22 [History Last Taken Unknown] simvastatin 20 mg tablet 20 mg PO DAILY 01/16/22 [History Last Taken Unknown] albuterol sulfate 2.5 mg/3 mL (0.083 %) solution for nebulization 2.5 mg (3 mL) inhalation Q4H PRN #25 vials 03/03/22 [Rx Last Taken Unknown] benzonatate 100 mg capsule 200 mg PO TID PRN PRN Cough #20 caps 03/03/22 [Rx Last Taken Unknown] prednisone 20 mg tablet 60 mg PO DAILY #15 tabs 03/03/22 [Rx Last Taken Unknown] levofloxacin 500 mg tablet 500 mg PO DAILY #5 tabs 06/05/22 [Rx Last Taken Unknown] prednisone 10 mg tablet 10 mg PO DAILY #20 tabs 06/05/22 [Rx Last Taken Unknown] prednisone 50 mg tablet 50 mg PO DAILY 5 days #5 tabs 08/22/22 [Rx Last Taken Unknown] tramadol 50 mg tablet 50 mg PO Q8H PRN pain #6 tabs 08/22/22 [Rx Last Taken Unknown] Allergy/AdvReac Type Severity Reaction Status Date / Time Penicillins Allergy Hives Verified 08/22/22 16:06 hydrocodone [From [place]] AdvReac Itching Verified 08/22/22 16:06 Family History Mother Diabetes Hypertension Heart disease High cholesterol Arthritis Thyroid disorder Brother Hypertension Sister Cancer cervical Thyroid disorder Father Kidney disease Daughter Thyroid disorder Surgical History History of appendectomy History of colonoscopy History of tubal ligation Social History Smoking Status: Current every day smoker tobacco type: cigarettes Tobacco: How many years used: 30 second hand exposure: Yes alcohol intake: current alcohol intake frequency: 3 or more drinks per day Alcohol type: beer substance use type: does not use caffeine: Yes ROS ROS ED Constitutional Constitutional ED: Reports chills and fever(s) Eyes Eyes: Denies change in vision or diplopia ENT ENT ED: Denies rhinorrhea or sore throat Cardiovascular Cardiovascular: Denies chest pain Respiratory/Chest Respiratory/Chest: Reports cough, dyspnea and dyspnea on exertion Gastrointestinal Gastrointestinal: Denies nausea or vomiting Genitourinary Genitourinary ED: Denies dysuria or hematuria Musculoskeletal Musculoskeletal: Reports myalgias Integumentary Denies abscess or Abrasions Neurologic Neurologic: Denies headache(s) or paresthesias Psychiatric Psychiatric: Denies anxiety or depression EXAM Physical Exam Const Vital Signs: 08/22/22 16:06 08/22/22 16:55 08/22/22 16:55 Temperature 97.8 F Temperature Source Temporal Pulse Rate 90 86 Respiratory Rate 22 H 18 Respiratory Effort Respiratory Depth Respiratory Pattern Blood Pressure 87/79 L Blood Pressure Mean 81 Pulse Ox 80 96 Oxygen Delivery Method Room Air Nasal Cannula Oxygen Flow Rate (L/min) 2 08/22/22 16:38 08/22/22 17:12 08/22/22 17:31 Temperature Temperature Source Pulse Rate 87 Respiratory Rate 26 H Respiratory Effort Short of Breath Labored Respiratory Depth Shallow Respiratory Pattern Tachypnea Blood Pressure 92/76 Blood Pressure Mean 81 Pulse Ox 93 94 Oxygen Delivery Method Nasal Cannula Nasal Cannula Nasal Cannula Oxygen Flow Rate (L/min) 2 2 2 08/22/22 17:48 08/22/22 16:30 08/22/22 17:50 Temperature Temperature Source Pulse Rate 90 88 Respiratory Rate 24 H 23 H 28 H Respiratory Effort Short of Breath Labored Accessory Muscle Use Respiratory Depth Respiratory Pattern Blood Pressure 145/79 H Blood Pressure Mean 101 Pulse Ox 97 Oxygen Delivery Method Nasal Cannula Room Air Oxygen Flow Rate (L/min) 2 08/22/22 18:10 08/22/22 18:11 Temperature 97.8 F Temperature Source Temporal Pulse Rate 96 95 Respiratory Rate 21 H 21 H Respiratory Effort Respiratory Depth Respiratory Pattern Blood Pressure 150/82 H 159/82 H Blood Pressure Mean 104 107 Pulse Ox 96 96 Oxygen Delivery Method Nasal Cannula Nasal Cannula Oxygen Flow Rate (L/min) 2 2 General Appearance ED: Negative for pallor HEENT Reports dry mucous membranes atraumatic Mouth ED: Yes dry mucous membranes Mouth: dry mucous membranes Neck no lymphadenopathy and supple Resp Resp Narrative: Tachypneic. Auscultation: wheezes expiratory wheezes and throughout Cardio regular rate and regular rhythm Neuro oriented x3 and CN's II-XII intact bilaterally Psych mental status grossly normal Skin General Skin Exam: Negative for jaundice or pallor MDM MDM MDM Narrative Medical decision making narrative: Patient presenting with shortness of breath, cough, fevers at home. She states this is ongoing for about a week. On initial presentation she was hypoxic at 80 % on room air however she was not on her 2 L of home O2. When placed on 2 L her pulse ox comes up to 94%. Initial blood pressure was 87/79. Sepsis work-up was initiated. Patient was given breathing treatments and Solu-Medrol 125 mg. It was noted that the patient's blood pressure was only low in the left arm. Once blood pressure cuff switched to the right arm her blood pressure is 159/82. Et iology is unclear. She does not have a history of this that she knows of. She is not complaining of chest pain. CBC shows no leukocytosis. Hemoglobin hematocrit are stable. Platelets are normal. PT/INR normal. Renal function is within normal limits. Sodium slightly low at 131. Patient was given a liter of IV fluids. Lactic acid 0.7. LFTs are normal. Urinalysis inconsistent with infection. Patient did require a second breathing treatment. On reevaluation at 7:15 PM she feels well. She states her breathing has improved. Her CTA revealed no evidence of PE or dissection. There is no obvious infiltrates. She request something for pain which she describes as diffuse throughout her body. She was given tramadol. Given patient's ultimately normal work-up I think she might of had a viral course this week but did not test positive. I do not believe she needs antibiotics. I will give her a prednisone burst for home. She has breathing treatments at home as well. She request a short supply of Ultram for her pain. Patient discharged home in stable condition. Impression: 1. COPD exacerbation 2. History of febrile illness 3. Hyponatremia 4. Cough 5. Myalgias Lab Data Labs: Laboratory Results - last 24 hr 08/22/22 08/22/22 08/22/22 16:33 16:33 16:33 WBC 9.6 RBC 5.09 Hgb 15.2 H Hct 43.8 MCV 86.1 MCH 29.9 MCHC 34.7 RDW Std Deviation 42.4 RDW Coeff of Min 13.4 Plt Count 226 MPV 10.8 Immature Gran % (Auto) 0.300 Neut % (Auto) 66.3 Lymph % (Auto) 21.2 [place] % (Auto) 11.3 H Eos % (Auto) 0.6 Baso % (Auto) 0.3 Absolute Neuts (auto) 6.4 Absolute Lymphs (auto) 2.04 Nucleated RBC % 0 PT 12.3 INR 0.9 APTT 28.9 Sodium 131 L Potassium 3.9 Chloride 95 L Carbon Dioxide 30.0 Anion Gap 6 BUN 9 Creatinine 0.60 Estim Creat Clear Calc 83.51 Est GFR (MDRD) Af Amer 132 Est GFR (MDRD) Non-Af 109 BUN/Creatinine Ratio 15.0 Glucose 115 H Lactic Acid Calcium 8.7 Total Bilirubin 0.20 AST 17 ALT 21 Alkaline Phosphatase 108 Troponin I High Sens 25 Total Protein 7.5 Albumin 3.4 Globulin 4.1 Albumin/Globulin Ratio 0.8 L Urine Color Urine Clarity Urine pH Ur Specific [place] Urine Protein Urine Glucose (UA) Urine Ketones Urine Occult Blood Urine Nitrite Urine Bilirubin Urine Urobilinogen Ur Leukocyte Esterase Urine RBC Urine WBC Ur Squamous Epith Cells Urine Bacteria Urine Mucus 08/22/22 08/22/22 16:33 18:40 WBC RBC Hgb Hct MCV MCH MCHC RDW Std Deviation RDW Coeff of Min Plt Count MPV Immature Gran % (Auto) Neut % (Auto) Lymph % (Auto) [place] % (Auto) Eos % (Auto) Baso % (Auto) Absolute Neuts (auto) Absolute Lymphs (auto) Nucleated RBC % PT INR APTT Sodium Potassium Chloride Carbon Dioxide Anion Gap BUN Creatinine Estim Creat Clear Calc Est GFR (MDRD) Af Amer Est GFR (MDRD) Non-Af BUN/Creatinine Ratio Glucose Lactic Acid 0.7 Calcium Total Bilirubin AST ALT Alkaline Phosphatase Troponin I High Sens Total Protein Albumin Globulin Albumin/Globulin Ratio Urine Color Yellow Urine Clarity Sl. Cloudy Urine pH 6.5 Ur Specific [place] 1.005 Urine Protein Negative Urine Glucose (UA) Normal Urine Ketones Negative Urine Occult Blood Negative Urine Nitrite Negative Urine Bilirubin Negative Urine Urobilinogen Normal Ur Leukocyte Esterase Negative Urine RBC 0 SEEN Urine WBC 0 SEEN Ur Squamous Epith Cells 0-5 SEEN Urine Bacteria RARE Urine Mucus 0 SEEN Radiography Diagnostic Testing: Clinical Impression(s) from Imaging Studies Chest X-Ray 08/22/22 17:30 IMPRESSION: No radiographic evidence of acute cardiopulmonary disease. Electronically Signed: Milton Ferro MD at 17:44 EST , Chest CTA 08/22/22 18:03 IMPRESSION: 1. No evidence of pulmonary embolus. 2. Mild pulmonary hyperinflation. Electronically Signed: Milton Ferro MD at 18:55 EST , Discharge Plan Triage Chief Complaint: Shortness of Breath ED Provider: Levar Handy Dx/Rx/DC Orders Instructions: ED COPD Flare, ED Fever Control (Adult) Prescriptions: New prednisone 50 mg tablet 50 mg PO DAILY 5 Days Qty: 5 0RF tramadol 50 mg tablet 50 mg PO Q8H PRN (Reason: pain) Qty: 6 0RF No Action albuterol sulfate [Ventolin HFA] 90 mcg/actuation HFA aerosol inhaler 2 puff INHALATION Q4H PRN (Reason: shortness of breath or wheezing) Qty: 18 6RF lisinopril 10 mg tablet 10 mg PO DAILY mirtazapine 45 mg tablet 45 mg PO DAILY melatonin 10 mg tablet extended release 10 mg PO DAILY simvastatin 20 mg tablet 20 mg PO DAILY doxycycline hyclate 100 mg tablet 100 mg PO BID Qty: 20 0RF levofloxacin 500 mg tablet 500 mg PO DAILY Qty: 5 0RF prednisone 10 mg tablet 10 mg PO DAILY Qty: 20 0RF Rx Instructions: Take 4 tabs daily for 5 days cholecalciferol (vitamin D3) 2,000 UNIT capsule 50 mcg PO DAILY lorazepam 0.5 tablet 0.5 - 1 mg PO DAILY PRN PRN (Reason: Anxiety) [id number] 1 CAPSULE capsule 3 ea PO BID pantoprazole 40 MG tablet 40 mg PO DAILY buspirone 10 mg Tablet 10 mg PO TID PRN (Reason: Anxiety) aripiprazole [Abilify] 5 mg Tablet 5 mg PO QHS benzonatate [Tessalon Perles] 100 mg capsule 100 mg PO BID PRN (Reason: cough) Qty: 14 0RF ibuprofen 400 mg Tablet 400 mg PO Q4H hydroxyzine pamoate 25 mg Capsule 25 mg PO QHS prednisone 20 MG tablet 60 mg PO DAILY Qty: 15 0RF benzonatate [benzonatate] 100 MG capsule 200 mg PO TID PRN PRN (Reason: Cough) Qty: 20 0RF albuterol sulfate 2.5 mg /3 mL (0.083 %) solution for nebulization 2.5 mg inhalation Q4H PRN Qty: 25 3RF Rx Instructions: Use q4 hours and PRN for wheezing Trelegy Ellipta 100-62.5-25 mcg blister with device 1 inh inhalation DAILY Qty: 60 6RF Primary Care Provider: JENNIFER NATARAJAN Referrals: JENNIFER NATARAJAN [employer] [Primary Care Provider] - Disposition Disposition: Home, Self Care
[2022-08-22] MEDS: Ipratropium/Albuterol Sulfate 3 ML AMPUL.NEB INHALATION (16:46)
[2022-08-22] MEDS: Albuterol 2.5 MG/3 ML VIAL.NEB. INHALATION ×2 (16:46→17:45)
[2022-08-22] MEDS: MethylPREDNISolone 125 MG/2 ML Vial IV (17:09)
[2022-08-22] MEDS: 0.9% Normal Saline 1,000 ML 999 ML IV (17:09)
[2022-08-22 17:16] LABS: Absolute Lymphocyte Count 2.04 X10^3/uL (0.83-4.51); Absolute Neutrophil Count 6.4 X10^3/uL (2.0-7.7); Basophil# 0.03 X10^3/uL; Basophil% 0.3 % (0-1); Eosinophil# 0.06 X10^3/uL; Eosinophils% 0.6 % (0-5); Hematocrit 43.8 % (37-47); Hemoglobin 15.2 g/dL (12.0-15.0); Lymphocyte # 2.04 X10^3/ul (0.83-4.51); Lymphocyte % 21.2 % (19-41); Mean Corp Hgb Conc 34.7 g/dL (32-36); Mean Corpuscular Hgb 29.9 pg (27.0-32.0); Mean Corpuscular Volume 86.1 fL (81-99); Mean Platelet Vol. 10.8 fl (6.2-12.0); Monocyte# 1.09 X10^3/uL; Monocyte% 11.3 % (0-10); NRBC Flagged by Analyzer 0 % (0-5); Neutrophil # 6.39 X10^3/uL (2.7-7.7); Neutrophil % 66.3 % (47-70); Platelet Count 226 K/mm3 (150-450); RBC Distribution Width CV 13.4 % (11.6-14.6); RBC Distribution Width SD 42.4 fl (35.1-43.9); Red Blood Count 5.09 M/mm3 (4.2-5.4); White Blood Count 9.6 K/mm3 (4.4-11.0)
[2022-08-22 17:25] LABS: International Normalized Ratio 0.9; Prothrombin Time (Protime)PT. 12.3 SECONDS (11.7-14.9)
[2022-08-22 17:26] LABS: Partial Thromboplast Time 28.9 Seconds (24.1-36.2)
--- NOTE | 2022-08-22 17:30 | RAD_ITS ---
EXAM: XR CHEST, 1 VIEW CLINICAL INDICATION: cough TECHNIQUE: Frontal view of the chest. This report was created using [employer] report generation technology. COMPARISON: 03/03/2022 FINDINGS: LUNGS AND PLEURAL SPACES: Unremarkable. No consolidation or edema. No pneumothorax. No effusion. HEART: Unremarkable. Cardiac silhouette not enlarged. MEDIASTINUM: Central airways and mediastinal contour are unremarkable. BONES/JOINTS: Unremarkable. SOFT TISSUES: Unremarkable. RAD/Chest 1 View (Portable) IMPRESSION: No radiographic evidence of acute cardiopulmonary disease. Electronically Signed: Milton Ferro MD at 17:44 EST ,
[2022-08-22 17:40] LABS: ALB/GLOB Ratio 0.8 RATIO (0.9-2.4); AST(SGOT) 17 U/L (15-37); Alanine Aminotransfer ALT/SGPT 21 U/L (13-56); Albumin, Serum 3.4 g/dL (3.2-5.0); Alkaline Phosphatase 108 U/L (45-117); Anion Gap 6 (5-15); BUN 9 mg/dL (7-18); Calcium,Total 8.7 mg/dL (8.5-10.1); Chloride 95 mmol/L (98-107); EST Glomerular Filtration Rate 109 mL/min (>60); Est Glom Filt Rate - Afr Amer 132 mL/min (>60); Estimated Creatinine Clearance 83.51 ml/min; Globulin 4.1 g/dL (2.2-4.2); Glucose 115 mg/dL (74-106); Potassium 3.9 mmol/L (3.5-5.1); Protein, Total 7.5 g/dL (6.4-8.2); Sodium Level 131 mmol/L (136-145); Troponin-I HS 25 pg/mL (3.0-54.0)
[2022-08-22 17:57] LABS: Lactic Acid 0.7 mmol/L (0.4-1.9)
--- NOTE | 2022-08-22 18:03 | CT_ITS ---
EXAM: CT ANGIOGRAPHY CHEST WITHOUT AND WITH INTRAVENOUS CONTRAST CLINICAL INDICATION: dyspnea TECHNIQUE: Helically acquired angiography images were obtained of the chest without and with intravenous contrast. This CT exam was performed using one or more of the following dose reduction techniques: automated exposure control, adjustment of the mA and/or kV according to patient size, and/or use of iterative reconstruction technique. This report was created using [employer] report generation technology. MIP reconstructed images were created and reviewed. CONTRAST: IV 100mL Isovue-370 COMPARISON: None. FINDINGS: PULMONARY ARTERIES: Unremarkable. Normal in caliber. No evidence of pulmonary embolism. AORTA: Unremarkable. Normal in caliber. No evidence of dissection. GREAT VESSELS OF AORTIC ARCH: Unremarkable. Normal in caliber. No evidence of dissection. LUNGS AND PLEURAL SPACES: The lungs are mildly hyperinflated. There are mild emphysematous changes. No mass. No pleural effusion or thickening. No pneumothorax. HEART: Unremarkable. Heart size is normal. No pericardial effusion. No signs of right heart strain, ratio of right ventricle to left ventricle measures less than 1. MEDIASTINUM: Unremarkable. No mediastinal or hilar adenopathy. Esophagus is unremarkable. No hiatal hernia. THYROID: Unremarkable. No thyroid lesions. BONES/JOINTS: Unremarkable. No suspicious lytic or blastic abnormality. CT/CTA Chest W/WO Contrast IMPRESSION: 1. No evidence of pulmonary embolus. 2. Mild pulmonary hyperinflation. Electronically Signed: Milton Ferro MD at 18:55 EST ,
[2022-08-22 18:47] LABS: Mucous, Urine 0 SEEN /hpf (<or=2+); Red Blood Cells-Urine 0 SEEN /hpf (0-5); White Blood Cells 0 SEEN /hpf (0-5)
[2022-08-22 18:58] LABS: Color, Urine Yellow (Yellow); Glucose, Dipstick Normal (Normal); Ketone-Dipstick Negative (Negative); Leukocyte Esterase-Dipstick Negative /ul (Negative); Nitrite-Dipstick Negative (Negative); Occult Blood-Urine Negative /ul (Negative); Protein-Dipstick Negative (Negative); Specific Gravity, Urine 1.005 (1.002-1.030); Urine Bilirubin Dipstick Negative (Negative); Urine Clarity Sl. Cloudy (Clear); Urine Urobilinogen Normal (Normal); Urine pH 6.5 (5.0 - 8.0)
[2022-08-22 19:12] LABS: Bacteria RARE /hpf (None Seen); Squamous Epithelial Cells - UA 0-5 SEEN /hpf (5-10)
[2022-08-22] MEDS: traMADol 50 MG Tablet PO (19:25)
== END 2022-08-22 19:42 | disposition home or self-care (01) ==
PROVIDERS: Emergency Provider Student in an Organized Health Care Education/Training Program; PCP Nurse Practitioner; Visit Provider Student in an Organized Health Care Education/Training Program
DX: J43.9 Emphysema, unspecified (principal); R09.02 Hypoxemia; Z20.822 Contact with and (suspected) exposure to COVID-19; E87.1 Hypo-osmolality and hyponatremia; R50.9 Fever, unspecified; I10 Essential (primary) hypertension; M79.10 Myalgia, unspecified site; F17.210 Nicotine dependence, cigarettes, uncomplicated; Z99.81 Dependence on supplemental oxygen; Z79.52 Long term (current) use of systemic steroids; Z79.899 Other long term (current) drug therapy
CPT/HCPCS: G0463; 71045; 71275; 80053; 81001; 83605; 84484; 85025; 85610; 85730; 87040; 87077; 87086; 87088; 87149; 87186; 87428; 87807; 93005; 94640; 96361; 96374; 99251; 99285; J7030; Q9967; A4216

== ENCOUNTER 2022-10-19 18:57 | Emergency (ER) | payer MEDICAID, SELFPAY ==
[2022-10-19 18:57] VITALS: BP 163/100; PULSE 114; RESP 20; TEMP 36.2; O2SAT 93; BMI 23.6
--- NOTE | 2022-10-19 19:05 | CT_ITS ---
INDICATION: infection right eye pain, redness and swelling for one month the. EXAMINATION: CT ORBITS WITH IV CT IAC/PF/Orbit/Sella W/ Contrast Injection TECHNIQUE: Helically acquired images were obtained of the orbits. Multiplanar reformations were reviewed. A radiation dose optimization technique was used for this scan. IV Contrast dosage and agent: 100 mL Isovue-370 Radiation Dose (provided by facility) CTDIvol (29.38 ) mGy, DLP ( 437.27) mGy-cm COMPARISON: None. FINDINGS: FINDINGS: BONY ORBITS: Normal appearance of bony orbits bilaterally. No fractures or focal bony lesions. PRESEPTAL COMPARTMENT: Preseptal soft tissue swelling on the RIGHT. There is significant enhancement of the conjunctival surface on the RIGHT. Normal appearance on LEFT. GLOBES AND OPTIC NERVES: Normal appearance the globes, ocular lenses, and optic nerves bilaterally. Conjugate gaze is noted. MUSCULOTENDINOUS RING: Normal appearance of the musculotendinous ring without evidence of masses, or abnormal thickening, INTRACONAL COMPARTMENT: Normal appearance of the intraconal compartments bilaterally without masses or abnormal fluid collections. EXTRACONAL COMPARTMENT AND NASAL LACRIMAL APPARATUS: Significant soft tissue thickening along the inferior and lateral aspect of the RIGHT orbit extending to the level of the colon. No organized fluid collection or abscess. Normal appearance of the extra conal compartments on the LEFT. There is significant contrast enhancement in the region of the RIGHT lacrimal gland, LEFT lacrimal gland has normal appearance. PARANASAL SINUSES: Mucosal thickening within the RIGHT maxillary antrum. REMAINING FACIAL SKELETON: No focal abdomen on is identified in the remaining facial skeleton. No fractures or destructive bony processes. OTHER: Incidental note of subcutaneous nodule likely representing a sebaceous cyst in the LEFT infraorbital soft tissues. CT/Orb Sella Post Fossa Ear W/CON IMPRESSION: 1. Marked abnormality of the soft tissues of the RIGHT orbit including preseptal soft tissue swelling consistent with a cellulitis. Extensive enhancement of the conjunctival surface consistent with extensive conjunctivitis. There is enhancement of the RIGHT lacrimal gland consistent with dacryoadenitis. 2. Significant soft tissue thickening and edema along the anterior lateral aspect of the extraconal compartment of the RIGHT orbit. Findings consistent with orbital cellulitis, however no organized fluid collections or orbital abscess noted. No evidence of orbital compartment syndrome. 3. Normal appearance of the globes, ocular lenses and optic nerves bilaterally. 4. Normal appearance of the soft tissues of the LEFT orbit. 5. Chronic RIGHT maxillary sinus mucosal thickening. Electronically Signed: Murtaza Stinson MD at 20:01 EST ,
--- NOTE | 2022-10-19 19:06 | EX.ED.VIS.EY ---
HPI History of Present Illness Chief Complaint: Eye Problem Detail of Chief Complaint: Right eye redness and pain Informant: patient Onset/Context/Timing Location: Right Eye Onset: Month(s) (1 month) Context: Gradual Onset Narrative Narrative: Patient presents with right periorbital redness and swelling that is been ongoing for the past month. Patient reports irritation to her eye with decreased vision. [facility]. She was started on oral azithromycin 3 days ago and had previously been given eyedrops. She states he was hoping to get a CAT scan later this week if she was not improving. He had advised her that if the symptoms do not improve she should go to the emergency room. [facility] Medical History Abdominal pain Alcohol abuse Alcoholic hepatitis Anemia Anxiety and depression Arthritis Asthma Benign hypertension Chronic pancreatitis COPD (chronic obstructive pulmonary disease) Diarrhea GERD (gastroesophageal reflux disease) History of back problems HPV (human papilloma virus) infection Nicotine dependence, cigarettes, uncomplicated Tobacco abuse Unintentional weight loss Home Medications cholecalciferol (vitamin D3) 50 mcg (2,000 unit) capsule 50 mcg PO DAILY SUPPLEMENT 12/29/18 [History Last Taken 06/11/21] lorazepam 0.5 mg tablet 0.5 - 1 mg PO DAILY PRN PRN Anxiety 04/19/19 [History Last Taken 06/10/21 21:00] [id number] 24,000-76,000-120,000 unit capsule,delayed rel 3 ea PO DAILY pancreas 12/10/19 [History Last Taken 06/11/21] pantoprazole 40 mg tablet,delayed release 40 mg PO DAILY GERD 08/12/20 [History Last Taken 06/11/21] albuterol sulfate 90 mcg/actuation aerosol inhaler (Ventolin HFA) 2 puff inhalation Q4H PRN shortness of breath or wheezing #18 grams 11/14/20 [Rx Last Taken Unknown] aripiprazole 5 mg tablet (Abilify) 5 mg PO QHS mood 01/22/21 [History Last Taken 06/10/21] buspirone 10 mg tablet 10 mg PO TID PRN Anxiety 01/22/21 [History Last Taken Unknown] hydroxyzine pamoate 25 mg capsule 25 mg PO QHS sleep 06/12/21 [History Last Taken 06/10/21] ibuprofen 400 mg tablet 400 mg PO Q4H pain 06/12/21 [History Last Taken Unknown] fluticasone fur. 100 mcg-umeclid 62.5 mcg-vilant 25 mcg inhalat.powder (Trelegy Ellipta) 1 inh inhalation DAILY COPD #60 ea 09/10/21 [Rx Last Taken Unknown] lisinopril 10 mg tablet 10 mg PO DAILY 01/16/22 [History Last Taken Unknown] melatonin 10 mg tablet,extended release 10 mg PO DAILY 01/16/22 [History Last Taken Unknown] mirtazapine 45 mg tablet 45 mg PO DAILY 01/16/22 [History Last Taken Unknown] albuterol sulfate 2.5 mg/3 mL (0.083 %) solution for nebulization 2.5 mg (3 mL) inhalation Q4H PRN #25 vials 03/03/22 [Rx Last Taken Unknown] benzonatate 100 mg capsule 200 mg PO TID PRN PRN Cough #20 caps 03/03/22 [Rx Last Taken Unknown] meloxicam 15 mg tablet 15 mg PO DAILY 10/19/22 [History Last Taken Unknown] Allergy/AdvReac Type Severity Reaction Status Date / Time Penicillins Allergy Hives Verified 10/19/22 18:59 hydrocodone [From [place]] AdvReac Itching Verified 10/19/22 18:59 Family History Mother Diabetes Hypertension Heart disease High cholesterol Arthritis Thyroid disorder Brother Hypertension Sister Cancer cervical Thyroid disorder Father Kidney disease Daughter Thyroid disorder Surgical History History of appendectomy History of colonoscopy History of tubal ligation Social History Smoking Status: Current every day smoker tobacco type: cigarettes Tobacco: How many years used: 30 second hand exposure: Yes alcohol intake: current alcohol intake frequency: 3 or more drinks per day Alcohol type: beer substance use type: does not use caffeine: Yes ROS ROS ED Constitutional Constitutional ED: Denies chills or fever(s) Eyes Eyes: Reports blurry vision right, change in vision right and other Details: Periorbital redness and swelling ENT ENT ED: Denies rhinorrhea or sore throat Cardiovascular Cardiovascular: Denies chest pain or palpitations Respiratory/Chest Respiratory/Chest: Denies cough or dyspnea Gastrointestinal Gastrointestinal: Denies abdominal pain, diarrhea, nausea or vomiting Genitourinary Genitourinary ED: Denies dysuria Musculoskeletal Musculoskeletal: Denies back pain or extremity pain Integumentary Denies Abrasions or rash Neurologic Neurologic: Denies headache(s) or weakness Psychiatric Psychiatric: Denies anxiety or depression Allergic/Immunologic Allergic/Immunologic ED: Denies lip swelling or urticaria EXAM Physical Exam Const Vital Signs: 10/19/22 18:57 Temperature 97.1 F L Temperature Source Temporal Pulse Rate 114 H Respiratory Rate 20 H Blood Pressure 163/100 H Blood Pressure Mean 121 Pulse Ox 93 Oxygen Delivery Method Room Air Positive well nourished and well developed General Appearance ED: well developed HEENT Reports normocephalic and head/scalp atraumatic Eyes Eyes Narrative: Mild right periorbital edema and erythema. Right eye is injected. Extraocular movements are fully intact. No ptosis noted. Neck supple Chest Wall inspection of chest normal and palpation of chest normal Resp normal respiratory effort Resp Narrative: Mild expiratory wheezes. Cardio regular rhythm Cardio Narrative: Tachycardia. GI normal to inspection, nondistended, normoactive bowel sounds Palpation: soft Back/Spine no CVA tenderness Extremity normal to inspection Neuro oriented x3 and no sensory deficits noted Sensorium / Orientation: alert Motor Exam: strength 5/5 throughout Psych mental status grossly normal MDM MDM MDM Narrative Medical decision making narrative: Patient was given fentanyl for pain. Lab work obtained including sed rate and CRP. CT of the orbits with contrast obtained to evaluate for preorbital or orbital cellulitis. Lab Data Attestation: I reviewed the patient's lab results. Labs: Impressions CT Orbit Sella Inner 10/19/22 19:05 IMPRESSION: 1. Marked abnormality of the soft tissues of the RIGHT orbit including preseptal soft tissue swelling consistent with a cellulitis. Extensive enhancement of the conjunctival surface consistent with extensive conjunctivitis. There is enhancement of the RIGHT lacrimal gland consistent with dacryoadenitis. 2. Significant soft tissue thickening and edema along the anterior lateral aspect of the extraconal compartment of the RIGHT orbit. Findings consistent with orbital cellulitis, however no organized fluid collections or orbital abscess noted. No evidence of orbital compartment syndrome. 3. Normal appearance of the globes, ocular lenses and optic nerves bilaterally. 4. Normal appearance of the soft tissues of the LEFT orbit. 5. Chronic RIGHT maxillary sinus mucosal thickening. Electronically Signed: Murtaza Stinson MD at 20:01 EST , 10/19/22 19:05 CT Orb [Orb Sella Post Fossa Ear W/CON] [CT] Stat Laboratory Results 10/19/22 10/19/22 19:15 19:15 WBC 13.9 H RBC 4.87 Hgb 13.6 Hct 41.4 MCV 85.0 MCH 27.9 MCHC 32.9 RDW Std Deviation 41.5 RDW Coeff of Min 13.2 Plt Count 384 MPV 9.6 Immature Gran % (Auto) 0.700 Neut % (Auto) 63.4 Lymph % (Auto) 23.6 [place] % (Auto) 7.1 Eos % (Auto) 4.4 Baso % (Auto) 0.8 Absolute Neuts (auto) 8.8 H Absolute Lymphs (auto) 3.28 Nucleated RBC % 0 ESR 75 H Sodium 137 Potassium 3.8 Chloride 107 Carbon Dioxide 26.0 Anion Gap 4 L BUN 7 Creatinine 0.62 Estim Creat Clear Calc 80.82 Est GFR (MDRD) Af Amer 127 Est GFR (MDRD) Non-Af 105 BUN/Creatinine Ratio 11.3 Glucose 97 Calcium 9.5 C-React Prot Ext Range 42.60 H Treatment and Re-Evaluation Narrative: CBC reveals elevated white count at 13.9 but no left shift is appreciated. Sed rate is 75 and CRP is 42.6. Chemistry studies are unremarkable. CT scan of the orbits with IV contrast reveals abnormality in the soft tissues of the right orbit including preseptal soft tissue swelling consistent with a cellulitis. There is extensive enhancement of the conjunctival surface as well as the right lacrimal duct. There is significant soft tissue thickening and edema along the anterior lateral aspect of the extraconal compartment of the right orbit. These findings are consistent with orbital cellulitis, however no organized fluid collection or abscesses noted. There is no evidence of orbital compartment syndrome. I spoke with Dr. Jurado, on-call Dr. Acosta, her occupational therapist. He advises that if the patient had a CT read is orbital cellulitis she needs to be transferred to a tertiary care center where either ENT or orbital plastics would be available to closely monitor her for the development of an abscess. Patient has been given a dose of clindamycin here. She is given a dose of hydralazine to help with her high blood pressure. We spoke with both hospitals in [place] who are not excepting transfers at this time. Patient has been discussed with [facility] and patient has been accepted as a level 1 transfer. We are awaiting bed at this time. Discharge Plan Triage Chief Complaint: Eye Problem ED Provider: Tasneem Dykes Dx/Rx/DC Orders Clinical Impression: Cellulitis of right orbit Prescriptions: No Action albuterol sulfate [Ventolin HFA] 90 mcg/actuation HFA aerosol inhaler 2 puff INHALATION Q4H PRN (Reason: shortness of breath or wheezing) Qty: 18 6RF lisinopril 10 mg tablet 10 mg PO DAILY mirtazapine 45 mg tablet 45 mg PO DAILY melatonin 10 mg tablet extended release 10 mg PO DAILY cholecalciferol (vitamin D3) 2,000 UNIT capsule 50 mcg PO DAILY lorazepam 0.5 tablet 0.5 - 1 mg PO DAILY PRN PRN (Reason: Anxiety) [id number] 1 CAPSULE capsule 3 ea PO DAILY pantoprazole 40 MG tablet 40 mg PO DAILY buspirone 10 mg Tablet 10 mg PO TID PRN (Reason: Anxiety) aripiprazole [Abilify] 5 mg Tablet 5 mg PO QHS ibuprofen 400 mg Tablet 400 mg PO Q4H hydroxyzine pamoate 25 mg Capsule 25 mg PO QHS benzonatate [benzonatate] 100 MG capsule 200 mg PO TID PRN PRN (Reason: Cough) Qty: 20 0RF albuterol sulfate 2.5 mg /3 mL (0.083 %) solution for nebulization 2.5 mg inhalation Q4H PRN Qty: 25 3RF Rx Instructions: Use q4 hours and PRN for wheezing meloxicam 15 mg tablet 15 mg PO DAILY Trelegy Ellipta 100-62.5-25 mcg blister with device 1 inh inhalation DAILY Qty: 60 6RF Primary Care Provider: JENNIFER NATARAJAN Referrals: JENNIFER NATARAJAN [employer] [Primary Care Provider] - Disposition Disposition: Acute Care Hospital Discharge Location: [facility]
[2022-10-19] MEDS: fentaNYL 100 MCG/2 ML Ampul 25 MCG IV ×2 (19:18→21:32)
[2022-10-19 19:35] LABS: Absolute Lymphocyte Count 3.28 X10^3/uL (0.83-4.51); Absolute Neutrophil Count 8.8 X10^3/uL (2.0-7.7); Basophil# 0.11 X10^3/uL; Basophil% 0.8 % (0-1); Eosinophil# 0.61 X10^3/uL; Eosinophils% 4.4 % (0-5); Hematocrit 41.4 % (37-47); Hemoglobin 13.6 g/dL (12.0-15.0); Lymphocyte # 3.28 X10^3/ul (0.83-4.51); Lymphocyte % 23.6 % (19-41); Mean Corp Hgb Conc 32.9 g/dL (32-36); Mean Corpuscular Hgb 27.9 pg (27.0-32.0); Mean Platelet Vol. 9.6 fl (6.2-12.0); Monocyte# 0.99 X10^3/uL; Monocyte% 7.1 % (0-10); NRBC Flagged by Analyzer 0 % (0-5); Neutrophil % 63.4 % (47-70); Platelet Count 384 K/mm3 (150-450); RBC Distribution Width CV 13.2 % (11.6-14.6); RBC Distribution Width SD 41.5 fl (35.1-43.9); Red Blood Count 4.87 M/mm3 (4.2-5.4); White Blood Count 13.9 K/mm3 (4.4-11.0)
[2022-10-19 19:37] LABS: Erythrocyte Sedimentation Rate 75 mm/hr (0-30)
[2022-10-19 19:45] LABS: Anion Gap 4 (5-15); BUN 7 mg/dL (7-18); BUN/Creat Ratio 11.3 RATIO (10-20); Calcium,Total 9.5 mg/dL (8.5-10.1); Chloride 107 mmol/L (98-107); Creatinine, Serum 0.62 mg/dL (0.55-1.02); EST Glomerular Filtration Rate 105 mL/min (>60); Est Glom Filt Rate - Afr Amer 127 mL/min (>60); Estimated Creatinine Clearance 80.82 ml/min; Glucose 97 mg/dL (74-106); Potassium 3.8 mmol/L (3.5-5.1); Sodium Level 137 mmol/L (136-145)
[2022-10-19] MEDS: Clindamycin 600 MG/50 ML BAG 100 MG IV (20:34)
[2022-10-19 20:45] VITALS: BP 185/101; PULSE 99; RESP 16; TEMP 37.1; O2SAT 96
[2022-10-19] MEDS: hydrALAZINE 20 MG/ML Vial 10 MG IV (21:33)
[2022-10-19 21:37] VITALS: BP 195/106; PULSE 106; RESP 18; TEMP 36.9; O2SAT 93
[2022-10-19 22:00] VITALS: BP 163/69; PULSE 110; RESP 16; O2SAT 94
[2022-10-19 23:00] VITALS: BP 186/96; PULSE 99; RESP 16; TEMP 37.1; O2SAT 95
[2022-10-20] VITALS: BP 176/86; PULSE 103; RESP 16; TEMP 37.1; O2SAT 94
[2022-10-20] MEDS: Morphine 4 MG/ML Syringe IV ×3 (00:18→06:56)
--- NOTE | 2022-10-20 01:45 | NURSING ---
Addendum entered by Ann Turk 10/20/22 05:04: CALLED [facility] AROUND 330AM FOR TRANSFER. CALLED BACK AROUND 504 AND HOSPITALIST IS VIEWING PTS INFO AND WILL CALL FOR CONFERENCE. Original Note: THIS CARDIOVASCULAR OR NURSE CALLED CC ABOUT BED ASSIGNMENT, EARLIER TOLD SHE WAS A PRIORITY 1. NO ASSIGNMENT OF YET.([id number])
[2022-10-20 02:00] VITALS: BP 133/67; PULSE 104; RESP 16; TEMP 37.1; O2SAT 95
[2022-10-20 03:01] VITALS: BP 130/58; PULSE 100; RESP 16; TEMP 37.1; O2SAT 95
--- NOTE | 2022-10-20 03:06 | EDS_ITS ---
HPI History of Present Illness Chief Complaint: Eye Problem [facility] Medical History Abdominal pain Alcohol abuse Alcoholic hepatitis Anemia Anxiety and depression Arthritis Asthma Benign hypertension Chronic pancreatitis COPD (chronic obstructive pulmonary disease) Diarrhea GERD (gastroesophageal reflux disease) History of back problems HPV (human papilloma virus) infection Nicotine dependence, cigarettes, uncomplicated Tobacco abuse Unintentional weight loss Home Medications cholecalciferol (vitamin D3) 50 mcg (2,000 unit) capsule 50 mcg PO DAILY SUPPLEMENT 12/29/18 [History Last Taken 06/11/21] lorazepam 0.5 mg tablet 0.5 - 1 mg PO DAILY PRN PRN Anxiety 04/19/19 [History Last Taken 06/10/21 21:00] [id number] 24,000-76,000-120,000 unit capsule,delayed rel 3 ea PO DAILY pancreas 12/10/19 [History Last Taken 06/11/21] pantoprazole 40 mg tablet,delayed release 40 mg PO DAILY GERD 08/12/20 [History Last Taken 06/11/21] albuterol sulfate 90 mcg/actuation aerosol inhaler (Ventolin HFA) 2 puff inhalation Q4H PRN shortness of breath or wheezing #18 grams 11/14/20 [Rx Last Taken Unknown] aripiprazole 5 mg tablet (Abilify) 5 mg PO QHS mood 01/22/21 [History Last Taken 06/10/21] buspirone 10 mg tablet 10 mg PO TID PRN Anxiety 01/22/21 [History Last Taken Unknown] hydroxyzine pamoate 25 mg capsule 25 mg PO QHS sleep 06/12/21 [History Last Taken 06/10/21] ibuprofen 400 mg tablet 400 mg PO Q4H pain 06/12/21 [History Last Taken Unknown] fluticasone fur. 100 mcg-umeclid 62.5 mcg-vilant 25 mcg inhalat.powder (Trelegy Ellipta) 1 inh inhalation DAILY COPD #60 ea 09/10/21 [Rx Last Taken Unknown] lisinopril 10 mg tablet 10 mg PO DAILY 01/16/22 [History Last Taken Unknown] melatonin 10 mg tablet,extended release 10 mg PO DAILY 01/16/22 [History Last Taken Unknown] mirtazapine 45 mg tablet 45 mg PO DAILY 01/16/22 [History Last Taken Unknown] albuterol sulfate 2.5 mg/3 mL (0.083 %) solution for nebulization 2.5 mg (3 mL) inhalation Q4H PRN #25 vials 03/03/22 [Rx Last Taken Unknown] benzonatate 100 mg capsule 200 mg PO TID PRN PRN Cough #20 caps 03/03/22 [Rx Last Taken Unknown] meloxicam 15 mg tablet 15 mg PO DAILY 10/19/22 [History Last Taken Unknown] Allergy/AdvReac Type Severity Reaction Status Date / Time Penicillins Allergy Hives Verified 10/19/22 18:59 hydrocodone [From [place]] AdvReac Itching Verified 10/19/22 18:59 Family History Mother Diabetes Hypertension Heart disease High cholesterol Arthritis Thyroid disorder Brother Hypertension Sister Cancer cervical Thyroid disorder Father Kidney disease Daughter Thyroid disorder Surgical History History of appendectomy History of colonoscopy History of tubal ligation Social History Smoking Status: Current every day smoker tobacco type: cigarettes Tobacco: How many years used: 30 second hand exposure: Yes alcohol intake: current alcohol intake frequency: 3 or more drinks per day Alcohol type: beer substance use type: does not use caffeine: Yes EXAM Physical Exam Const Vital Signs: 10/19/22 18:57 10/19/22 20:45 10/19/22 21:37 Temperature 97.1 F L 98.8 F 98.4 F Temperature Source Temporal Oral Oral Pulse Rate 114 H 99 106 H Respiratory Rate 20 H 16 18 Blood Pressure 163/100 H 185/101 H 195/106 H Blood Pressure Mean 121 129 135 Pulse Ox 93 96 93 Oxygen Delivery Method Room Air Room Air Room Air 10/19/22 22:00 10/19/22 23:00 10/20/22 00:00 Temperature 98.8 F 98.8 F Temperature Source Oral Oral Pulse Rate 110 H 99 103 H Respiratory Rate 16 16 16 Blood Pressure 163/69 H 186/96 H 176/86 H Blood Pressure Mean 100 126 116 Pulse Ox 94 95 94 Oxygen Delivery Method Room Air Room Air Room Air 10/20/22 02:00 10/20/22 03:01 Temperature 98.8 F 98.8 F Temperature Source Oral Oral Pulse Rate 104 H 100 Respiratory Rate 16 16 Blood Pressure 133/67 H 130/58 H Blood Pressure Mean 89 82 Pulse Ox 95 95 Oxygen Delivery Method Room Air Room Air [facility] Lab Data Labs: Laboratory Results - last 24 hr 10/19/22 10/19/22 19:15 19:15 WBC 13.9 H RBC 4.87 Hgb 13.6 Hct 41.4 MCV 85.0 MCH 27.9 MCHC 32.9 RDW Std Deviation 41.5 RDW Coeff of Min 13.2 Plt Count 384 MPV 9.6 Immature Gran % (Auto) 0.700 Neut % (Auto) 63.4 Lymph % (Auto) 23.6 [place] % (Auto) 7.1 Eos % (Auto) 4.4 Baso % (Auto) 0.8 Absolute Neuts (auto) 8.8 H Absolute Lymphs (auto) 3.28 Nucleated RBC % 0 ESR 75 H Sodium 137 Potassium 3.8 Chloride 107 Carbon Dioxide 26.0 Anion Gap 4 L BUN 7 Creatinine 0.62 Estim Creat Clear Calc 80.82 Est GFR (MDRD) Af Amer 127 Est GFR (MDRD) Non-Af 105 BUN/Creatinine Ratio 11.3 Glucose 97 Calcium 9.5 C-React Prot Ext Range 42.60 H Radiography Diagnostic Testing: Clinical Impression(s) from Imaging Studies CT Orbit Sella Inner 10/19/22 19:05 IMPRESSION: 1. Marked abnormality of the soft tissues of the RIGHT orbit including preseptal soft tissue swelling consistent with a cellulitis. Extensive enhancement of the conjunctival surface consistent with extensive conjunctivitis. There is enhancement of the RIGHT lacrimal gland consistent with dacryoadenitis. 2. Significant soft tissue thickening and edema along the anterior lateral aspect of the extraconal compartment of the RIGHT orbit. Findings consistent with orbital cellulitis, however no organized fluid collections or orbital abscess noted. No evidence of orbital compartment syndrome. 3. Normal appearance of the globes, ocular lenses and optic nerves bilaterally. 4. Normal appearance of the soft tissues of the LEFT orbit. 5. Chronic RIGHT maxillary sinus mucosal thickening. Electronically Signed: Murtaza Stinson MD at 20:01 EST , Discharge Plan Triage Chief Complaint: Eye Problem ED Provider: Tasneem Dykes Dx/Rx/DC Orders Clinical Impression: Cellulitis of right orbit Prescriptions: No Action albuterol sulfate [Ventolin HFA] 90 mcg/actuation HFA aerosol inhaler 2 puff INHALATION Q4H PRN (Reason: shortness of breath or wheezing) Qty: 18 6RF lisinopril 10 mg tablet 10 mg PO DAILY mirtazapine 45 mg tablet 45 mg PO DAILY melatonin 10 mg tablet extended release 10 mg PO DAILY cholecalciferol (vitamin D3) 2,000 UNIT capsule 50 mcg PO DAILY lorazepam 0.5 tablet 0.5 - 1 mg PO DAILY PRN PRN (Reason: Anxiety) [id number] 1 CAPSULE capsule 3 ea PO DAILY pantoprazole 40 MG tablet 40 mg PO DAILY buspirone 10 mg Tablet 10 mg PO TID PRN (Reason: Anxiety) aripiprazole [Abilify] 5 mg Tablet 5 mg PO QHS ibuprofen 400 mg Tablet 400 mg PO Q4H hydroxyzine pamoate 25 mg Capsule 25 mg PO QHS benzonatate [benzonatate] 100 MG capsule 200 mg PO TID PRN PRN (Reason: Cough) Qty: 20 0RF albuterol sulfate 2.5 mg /3 mL (0.083 %) solution for nebulization 2.5 mg inhalation Q4H PRN Qty: 25 3RF Rx Instructions: Use q4 hours and PRN for wheezing meloxicam 15 mg tablet 15 mg PO DAILY Trelegy Ellipta 100-62.5-25 mcg blister with device 1 inh inhalation DAILY Qty: 60 6RF Primary Care Provider: JENNIFER NATARAJAN Referrals: JENNIFER NATARAJAN NP-C [Primary Care Provider] - Disposition Disposition: Acute Care Hospital Discharge Location: [facility]
[2022-10-20 03:56] VITALS: BP 167/74; PULSE 99; RESP 15; O2SAT 92
[2022-10-20] MEDS: Clindamycin 600 MG/50 ML BAG 100 MG IV (03:57)
[2022-10-20 07:01] VITALS: BP 167/74; PULSE 99; RESP 15; TEMP -12.7; TEMP 9; O2SAT 94
== END 2022-10-20 07:12 | disposition short-term general hospital (02) ==
PROVIDERS: Emergency Provider Emergency Medicine; PCP Nurse Practitioner; Visit Provider Emergency Medicine
DX: H05.011 Cellulitis of right orbit (principal); J44.9 Chronic obstructive pulmonary disease, unspecified; F17.210 Nicotine dependence, cigarettes, uncomplicated; I10 Essential (primary) hypertension
CPT/HCPCS: 70481; 80048; 85025; 85652; 86140; 87040; 87428; 96365; 96375; 96376; 99285; Q9967; A4216

== ENCOUNTER 2022-11-01 19:35 | Inpatient (IN) | payer MEDICAID, SELFPAY ==
[2022-11-01 19:35] VITALS: BP 100/83; PULSE 98; RESP 16; TEMP 36.2; O2SAT 92; BMI 23.0
--- NOTE | 2022-11-01 20:22 | EX.ED.DYSGE1 ---
HPI History of Present Illness Chief Complaint: Nausea/Vomiting/Diarrhea Detail of Chief Complaint: Nausea, vomiting diarrhea Informant: patient Onset/Context/Timing Onset: Today (Today) and Days (Diarrhea for several days, negative test for C. difficile) Context: Sudden Onset Timing: Intermittent Quality: Vomiting diarrhea Location: GI Current Severity: Mild Maximum Severity: Mild Worsened by: Unknown Relieved by: Nothing Associated Symptoms Associated Symptoms: Thirst, dry mouth, decreased urine output and lightheadedness with standing Narrative Narrative: Patient is a 57-year-old woman who was admitted on 10/20/2022 for orbital cellulitis. She was in the hospital for 3 days. Patient was transferred to [facility]. Records were reviewed. Patient did have stool test for C. difficile which was negative. She states she is had diarrhea since her hospitalization. The nausea and vomiting started today. She denies blood or coffee-ground in her emesis. She denies blood or mucus in her diarrhea. She denies odor. She is only having 3 loose stools a day this could be antibiotic induced. Patient states she has a sensation that she has not had enough to drink. She denies fever, chills night sweats. Denies headache. She denies visual, ocular auditory symptoms. She denies cardiac respiratory symptoms. She reports decreased urine output otherwise no urinary symptoms. She denies myalgias or arthralgias. She denies paresthesia or anesthesia. Prior similar symptoms: No Recent Illness/Hospitalization: No [facility] Medical History Abdominal pain Alcohol abuse Alcoholic hepatitis Anemia Anxiety and depression Arthritis Asthma Benign hypertension Chronic pancreatitis COPD (chronic obstructive pulmonary disease) Diarrhea GERD (gastroesophageal reflux disease) History of back problems HPV (human papilloma virus) infection Nicotine dependence, cigarettes, uncomplicated Tobacco abuse Unintentional weight loss Home Medications cholecalciferol (vitamin D3) 50 mcg (2,000 unit) capsule 50 mcg PO DAILY SUPPLEMENT 12/29/18 [History Last Taken 06/11/21] lorazepam 0.5 mg tablet 0.5 - 1 mg PO DAILY PRN PRN Anxiety 04/19/19 [History Last Taken 06/10/21 21:00] hincxw-elkcgbdr-osnqobd 24,000-76,000-120,000 unit capsule,delayed rel 3 ea PO DAILY pancreas 12/10/19 [History Last Taken 06/11/21] pantoprazole 40 mg tablet,delayed release 40 mg PO DAILY GERD 08/12/20 [History Last Taken 06/11/21] albuterol sulfate 90 mcg/actuation aerosol inhaler (Ventolin HFA) 2 puff inhalation Q4H PRN shortness of breath or wheezing #18 grams 11/14/20 [Rx Last Taken Unknown] aripiprazole 5 mg tablet (Abilify) 5 mg PO QHS mood 01/22/21 [History Last Taken 06/10/21] buspirone 10 mg tablet 10 mg PO TID PRN Anxiety 01/22/21 [History Last Taken Unknown] hydroxyzine pamoate 25 mg capsule 25 mg PO QHS sleep 06/12/21 [History Last Taken 06/10/21] ibuprofen 400 mg tablet 400 mg PO Q4H pain 06/12/21 [History Last Taken Unknown] fluticasone fur. 100 mcg-umeclid 62.5 mcg-vilant 25 mcg inhalat.powder (Trelegy Ellipta) 1 inh inhalation DAILY COPD #60 ea 09/10/21 [Rx Last Taken Unknown] lisinopril 10 mg tablet 10 mg PO DAILY 01/16/22 [History Last Taken Unknown] melatonin 10 mg tablet,extended release 10 mg PO DAILY 01/16/22 [History Last Taken Unknown] mirtazapine 45 mg tablet 45 mg PO DAILY 01/16/22 [History Last Taken Unknown] albuterol sulfate 2.5 mg/3 mL (0.083 %) solution for nebulization 2.5 mg (3 mL) inhalation Q4H PRN #25 vials 03/03/22 [Rx Last Taken Unknown] benzonatate 100 mg capsule 200 mg PO TID PRN PRN Cough #20 caps 03/03/22 [Rx Last Taken Unknown] meloxicam 15 mg tablet 15 mg PO DAILY 10/19/22 [History Last Taken Unknown] Allergy/AdvReac Type Severity Reaction Status Date / Time Penicillins Allergy Hives Verified 11/01/22 19:37 hydrocodone [From [place]] AdvReac Itching Verified 11/01/22 19:37 Family History Mother Diabetes Hypertension Heart disease High cholesterol Arthritis Thyroid disorder Brother Hypertension Sister Cancer cervical Thyroid disorder Father Kidney disease Daughter Thyroid disorder Surgical History History of appendectomy History of colonoscopy History of tubal ligation Social History Smoking Status: Current every day smoker tobacco type: cigarettes Tobacco: How many years used: 30 second hand exposure: Yes alcohol intake: current alcohol intake frequency: 3 or more drinks per day Alcohol type: beer substance use type: does not use caffeine: Yes ROS ROS ED Constitutional Constitutional ED: Denies chills, fever(s), subjective, sweats or weight loss Eyes Eyes: Denies blurry vision, change in vision or diplopia ENT ENT ED: Denies ear pain, rhinorrhea or sore throat Cardiovascular Cardiovascular: Denies chest pain, orthopnea, palpitations or paroxysmal nocturnal dyspnea Respiratory/Chest Respiratory/Chest: Denies cough, dyspnea, dyspnea on exertion, orthopnea or paroxysmal nocturnal dyspnea Gastrointestinal Gastrointestinal: Reports abdominal pain; Denies diarrhea, nausea or vomiting Genitourinary Genitourinary ED: Denies dysuria, hematuria or urinary frequency Musculoskeletal Musculoskeletal: Denies arthralgias, back pain, myalgias or neck pain Integumentary Denies abscess, Abrasions or rash Neurologic Neurologic: Reports weakness; Denies headache(s) or paresthesias Psychiatric Psychiatric: Denies anxiety or depression Endocrine Endocrinology: Denies cold intolerance or heat intolerance Hematologic/Lymphatic Hematologic/Lymphatic: Reports systems reviewed and no addt'l complaints, except as documented EXAM Physical Exam Const Vital Signs: 11/01/22 19:35 Temperature 97.1 F L Temperature Source Temporal Pulse Rate 98 Respiratory Rate 16 Blood Pressure 100/83 H Blood Pressure Mean 88 Pulse Ox 92 Oxygen Delivery Method Room Air Positive well nourished and well developed General Appearance ED: well developed, NAD and pallor; Negative for cyanotic or diaphoretic HEENT Reports moist mucous membranes HEENT Narrative: Head is atraumatic normocephalic. Ears normal. TMs normal. Uvula midline. There is no erythema or exudate the posterior pharynx. There is no deviation with protrusion. Eyes PERRL and EOMs intact bilaterally General Eye ED: Negative for pale conjunctiva or scleral icterus Neck no lymphadenopathy and no JVD Chest Wall inspection of chest normal and palpation of chest normal Resp normal respiratory effort and clear to auscultation bilaterally Cardio regular rate, regular rhythm, S1 normal heart sound, S2 normal heart sound and no murmurs GI normal to inspection, nondistended, normoactive bowel sounds, non-tender and non-distended; Negative for hepatosplenomegaly or no masses Palpation: soft Back/Spine no CVA tenderness Extremity normal to inspection General Extremety ED: Negative for edema or tenderness General Extremity: Negative for edema Neuro oriented x3, CN's II-XII intact bilaterally and no sensory deficits noted Sensorium / Orientation: alert Psych mental status grossly normal Skin no rashes or lesions noted, no wounds and No skin turgor normal General Skin Exam: pallor; Negative for elasticity normal or jaundice MDM MDM MDM Narrative Medical decision making narrative: Since patient's had negative stool test for C. difficile this was not repeated. BMP was obtained to assess renal function, CO2 anion gap and electrolytes and specifically potassium. Since patient is clinically dehydrated give symptoms of dehydration 1 L normal saline was ordered. She was treated with Zofran for her nausea. Blood pressure is borderline hypotensive. Systolic is greater than 90 and mean arterial is greater than 65. Records from outside facility reviewed. Detail documented in the HPI narrative CBC was added per the request of the hospitalist. She will follow results. Lab Data Attestation: I reviewed the patient's lab results. Lab results narrative: Basic metabolic panel reveals mild hyponatremia. Patient has acute kidney injury with a significant jump in creatinine to 2.05. GFR is 26. Since patient has not been able to eat or drink anything for the past couple of days with acute kidney injury hospitalist has been paged for admission. Labs: Laboratory Results - last 24 hr 11/01/22 20:32 Sodium 130 L Potassium 3.9 Chloride 100 Carbon Dioxide 20.0 L Anion Gap 10 BUN 13 Creatinine 2.05 H Estim Creat Clear Calc 24.44 Est GFR (MDRD) Af Amer 32 L Est GFR (MDRD) Non-Af 26 L BUN/Creatinine Ratio 6.3 L Glucose 95 Calcium 8.2 L Rhythm Strip Rhythm Strip: Sinus Rhythm Rate: 99 Ectopy: None Discharge Plan Dx/Rx/DC Orders Clinical Impression: Nausea & vomiting, Diarrhea, Acute kidney injury, Acute hyponatremia Disposition Disposition: Acute Care Hospital [facility]
[2022-11-01] MEDS: Ondansetron 4 MG/2 ML Vial IV ×2 (20:39→23:54)
[2022-11-01] MEDS: 0.9% Normal Saline 1,000 ML 1000 ML IV (20:39)
[2022-11-01 20:56] LABS: Anion Gap 10 (5-15); BUN 13 mg/dL (7-18); BUN/Creat Ratio 6.3 RATIO (10-20); Calcium,Total 8.2 mg/dL (8.5-10.1); Chloride 100 mmol/L (98-107); Creatinine, Serum 2.05 mg/dL (0.55-1.02); EST Glomerular Filtration Rate 26 mL/min (>60); Est Glom Filt Rate - Afr Amer 32 mL/min (>60); Estimated Creatinine Clearance 24.44 ml/min; Glucose 95 mg/dL (74-106); Potassium 3.9 mmol/L (3.5-5.1); Sodium Level 130 mmol/L (136-145)
--- NOTE | 2022-11-01 22:21 | PCM.HP.STD ---
HPI - General General Date of Admission: 11/01/22 Date of Service: 11/01/22 Chief Complaint: Poor urine output, bilateral flank pain- 1 day HPI Narrative Cristina KANG, is a 57 F who presents the above. Patient was recently discharged from main [place] after being transferred from [facility] with right orbital cellulitis for acute ophthalmology evaluation. Over the course of his stay in the [facility], patient developed severe diarrhea with resultant CHUY. She was on Augmentin. Her Augmentin was switched to Bactrim and had CHUY improved. She was discharged home on 10/29/2022. Patient stated that since being at home, she has been drinking lots of water but her urine output has been decreasing. She noticed today that she has increased frequency but when she goes to the restroom, she had very little urine output. She also had associated bilateral flank. She denied any dizziness or palpitations or nausea or vomiting. She admits to frequent bowel movements about 3 times a day, watery. In the emergency room, her blood pressure is 100/83, heart rate 98, respiratory 16, temperature 97.1 F, oxygen sat 92% on room air. BC is 12.5, hemoglobin 10.2, platelets 278, sodium is 130, potassium 3.9, chloride 100, CO2 20, BUN 30, creatinine 2.05, previous creatinine in our system on 10/19/2022 was 0.62 PFSH Medical History Abdominal pain Alcohol abuse Alcoholic hepatitis Anemia Anxiety and depression Arthritis Asthma Benign hypertension Chronic pancreatitis COPD (chronic obstructive pulmonary disease) Diarrhea GERD (gastroesophageal reflux disease) History of back problems HPV (human papilloma virus) infection Nicotine dependence, cigarettes, uncomplicated Tobacco abuse Unintentional weight loss Home Medications cholecalciferol (vitamin D3) 50 mcg (2,000 unit) capsule 50 mcg PO DAILY SUPPLEMENT 12/29/18 [History Last Taken 10/31/22] pantoprazole 40 mg tablet,delayed release 40 mg PO DAILY GERD 08/12/20 [History Last Taken 10/31/22] albuterol sulfate 90 mcg/actuation aerosol inhaler (Ventolin HFA) 2 puff inhalation Q4H PRN shortness of breath or wheezing #18 grams 11/14/20 [Rx Last Taken Unknown] aripiprazole 5 mg tablet (Abilify) 5 mg PO DAILY mood 01/22/21 [History Last Taken 10/31/22] hydroxyzine pamoate 25 mg capsule 25 mg PO Q6H PRN PRN Itching 06/12/21 [History Last Taken 10/31/22] mirtazapine 45 mg tablet 45 mg PO QHS sleep 01/16/22 [History Last Taken 10/31/22] amlodipine 2.5 mg tablet 2.5 mg PO DAILY BP 11/01/22 [History Last Taken Unknown] erythromycin 5 mg/gram (0.5 %) eye ointment 0.5 inch RIGHT EYE Q6H antibiotic 11/01/22 [History Last Taken Unknown] wlzcax-jdnwixlb-grxvsut 24,000-76,000-120,000 unit capsule,delayed rel (Creon) 1 cap PO TIDCM Check with primary doctor 11/01/22 [History Last Taken 10/31/22] loperamide 2 mg capsule 2 mg PO Q4H PRN PRN Diarrhea 11/01/22 [History Last Taken Unknown] polyvinyl alcohol 1.4 % eye drops 2 drp ophthalmic (eye) Q6H eye infection 11/01/22 [History Last Taken 11/01/22] simvastatin 20 mg tablet 20 mg PO QHS cholesterol 11/01/22 [History Last Taken 10/31/22] sulfamethoxazole 800 mg-trimethoprim 160 mg tablet 1 tab PO BID antibiotic 11/01/22 [History Last Taken 11/01/22] Allergy/AdvReac Type Severity Reaction Status Date / Time Penicillins Allergy Hives Verified 11/01/22 19:37 hydrocodone [From [place]] AdvReac Itching Verified 11/01/22 19:37 Family History Mother Diabetes Hypertension Heart disease High cholesterol Arthritis Thyroid disorder Brother Hypertension Sister Cancer cervical Thyroid disorder Father Kidney disease Daughter Thyroid disorder Surgical History History of appendectomy History of colonoscopy History of tubal ligation Social History Smoking Status: Former smoker quit date: 02/20/18 pack-years: 75 Tobacco: How many years used: 30 second hand exposure: Yes alcohol intake: current alcohol intake frequency: 3 or more drinks per day Alcohol type: beer substance use type: does not use caffeine: Yes ROS ROS Narrative Constitutional: Reports: Malaise, Weakness, Fatigue. Denies: Anorexia, Chills, Fever, Night Sweats, Weight Change Eyes: Denies: Blurred vision, Cataracts, Conjunctivae Inflammation, Pain, Redness, Vision Change HEENT: Denies: Difficulty Hearing, Difficulty Swallowing, Head Aches, Hearing Changes, Sinus Congestion, Sinus Drainage Cardiovascular: Denies: Chest Pain, Orthopnea, Palpitations Respiratory: Denies: Cough, Shortness of breath at rest, Sputum production Gastrointestinal: Diarrhea denies: Abdominal Pain, Nausea, Vomiting Genitourinary: Denies: Dysuria Musculoskeletal: Denies: Joint Pain, Joint stiffness, Joint swelling, Joint Tenderness Skin: Denies: Rash, Wounds Neurological: Denies: Numbness, Tingling, Focal weakness Vital Signs Vital Signs Vital Signs: 11/01/22 19:35 Temperature 97.1 F L Temperature Source Temporal Pulse Rate 98 Respiratory Rate 16 Blood Pressure 100/83 H Blood Pressure Mean 88 Pulse Ox 92 Oxygen Delivery Method Room Air Weight Weight: 58.967 kg Body Mass Index (BMI) 23.0 Physical Exam Narrative Physical exam: General: Alert, Oriented x3, Cooperative, moderately dehydrated, appears fair HEENT: Atraumatic, slight erythema in the right periorbital region, no edema Oral: Moist Mucosa Neck: Supple Lungs: Diminished to auscultation Cardiovascular: HS I+II, regular, no murmurs Abdomen: Bowel Sounds Present, Soft, Non Tender Extremities: No edema Skin: No rashes, No breakdown Neurological: Grossly intact Psych/Mental Status: Appropriate Results Lab / Micro Data Result Diagrams: 11/01/22 22:28 11/01/22 20:32 Labs: Laboratory Results - last 24 hr 11/01/22 20:32: Sodium 130 L, Potassium 3.9, Chloride 100, Carbon Dioxide 20.0 L, Anion Gap 10, BUN 13, Creatinine 2.05 H, Estim Creat Clear Calc 24.44, Est GFR (MDRD) Af Amer 32 L, Est GFR (MDRD) Non-Af 26 L, BUN/Creatinine Ratio 6.3 L, Glucose 95, Calcium 8.2 L Rhythm Strip Rhythm Strip: Sinus Rhythm Rate: 99 Ectopy: None Assessment & Plan Assessment/Plan (1) Acute kidney injury: (2) Diarrhea: PLAN: Plan 1. Acute kidney injury, likely prerenal, from dehydration from acute diarrhea Patient with recent CHUY from hospitalization [facility], reportedly improved Admitted creatinine of 2.05 Will admit to MedSurg, aggressive IV fluids, trend labs Consider kidney bladder ultrasound as well as nephrology consult if renal function is not improving 2. Acute diarrhea, acute C. difficile ruled out a few weeks ago Patient is on Imodium as needed Will check enteric panel status, continue Imodium as needed 3. Leukocytosis, likely reactive versus improved from recent orbital cellulitis treatment Continue on Bactrim (adjusted for renal function) 4. [place] metabolic acidosis secondary to acute diarrhea, continue to monitor 5. Hyponatremia, hypovolemic, continue IV fluids, trend labs 6. Recent right orbital cellulitis, currently on Bactrim, last date is 11/04/2021 7. Nicotine dependence, advised to quit, continue nicotine replacement 8. Rest of chronic medical conditions including bipolar disorder/depression/chronic pancreatitis//COPD, not in acute exacerbation/Hypertension These all complicates patient's care and recovery as well as management Continue on amlodipine hydroxyzine, Creon, mirtazapine, pantoprazole, simvastatin 9. DVT prophylaxis?Heparin subcu Total time spent: 75 minutes of which the greater part was spent in reviewing patient's chart, laboratory investigations, imaging, discussing with emergency physician, taking history, physical examining patient and going over plan of care with patient at the bedside. Charges/Coding Visit Charges Inpatient E&M: 10648 Init Hosp L3
[2022-11-01 22:33] VITALS: BP 137/84; PULSE 87; RESP 21; TEMP 36.6; O2SAT 99
[2022-11-01 22:57] LABS: Absolute Neutrophil Count 8.3 X10^3/uL (2.0-7.7); Basophil# 0.09 X10^3/uL; Basophil% 0.7 % (0-1); Eosinophil# 0.43 X10^3/uL; Eosinophils% 3.4 % (0-5); Hematocrit 31.9 % (37-47); Hemoglobin 10.2 g/dL (12.0-15.0); Lymphocyte % 16.8 % (19-41); Mean Corpuscular Hgb 26.8 pg (27.0-32.0); Mean Corpuscular Volume 83.9 fL (81-99); Mean Platelet Vol. 9.8 fl (6.2-12.0); Monocyte# 1.41 X10^3/uL; Monocyte% 11.3 % (0-10); NRBC Flagged by Analyzer 0 % (0-5); Neutrophil # 8.26 X10^3/uL (2.7-7.7); Neutrophil % 66.4 % (47-70); Platelet Count 278 K/mm3 (150-450); RBC Distribution Width SD 42.8 fl (35.1-43.9); White Blood Count 12.5 K/mm3 (4.4-11.0)
[2022-11-01] MEDS: Acetaminophen 500 MG Tablet PO (23:03)
[2022-11-01 23:22] VITALS: BMI 23.7
[2022-11-01 23:25] VITALS: BP 136/66; PULSE 91; RESP 18; TEMP 36.9; O2SAT 96
[2022-11-01] MEDS: 0.9% Normal Saline 1,000 ML 150 ML IV (23:47)
[2022-11-02] VITALS (11 sets, daily range): BP systolic 97–208; BP diastolic 66–101; PULSE 75–147; RESP 12–42; TEMP 36.6–38.3; O2SAT 92–99
[2022-11-02] MEDS: 0.9% Normal Saline 1,000 ML 200 ML IV ×3 (05:21→16:59)
[2022-11-02] MEDS: hydrOXYzine PAM 25 MG Capsule PO ×2 (05:29→12:45)
[2022-11-02] MEDS: Acetaminophen 325 MG Tablet 650 MG PO ×2 (05:30→12:43)
[2022-11-02] MEDS: Erythromycin Base 1 OPTH.TUBE 1 APPLIC RIGHT EYE ×3 (05:31→17:00)
[2022-11-02] MEDS: Heparin Injection (Vial) 5,000 UNIT/ML VIAL 5000 UNIT SC ×3 (05:31→22:53)
[2022-11-02] MEDS: Glycerin/Hypromellose/PEG400 15 ml Bottle 2 DRP OPHTHALMIC ×3 (05:33→16:59)
[2022-11-02 06:50] LABS: Absolute Lymphocyte Count 1.71 X10^3/uL (0.83-4.51); Absolute Neutrophil Count 6.3 X10^3/uL (2.0-7.7); Basophil# 0.06 X10^3/uL; Basophil% 0.6 % (0-1); Eosinophil# 0.53 X10^3/uL; Eosinophils% 5.3 % (0-5); Hematocrit 29.5 % (37-47); Hemoglobin 9.4 g/dL (12.0-15.0); Lymphocyte # 1.71 X10^3/ul (0.83-4.51); Lymphocyte % 17.1 % (19-41); Mean Corp Hgb Conc 31.9 g/dL (32-36); Mean Corpuscular Volume 84.8 fL (81-99); Mean Platelet Vol. 10.1 fl (6.2-12.0); Monocyte# 1.32 X10^3/uL; Monocyte% 13.2 % (0-10); NRBC Flagged by Analyzer 0 % (0-5); Neutrophil # 6.27 X10^3/uL (2.7-7.7); Neutrophil % 62.9 % (47-70); Platelet Count 289 K/mm3 (150-450); RBC Distribution Width SD 43.5 fl (35.1-43.9); Red Blood Count 3.48 M/mm3 (4.2-5.4)
[2022-11-02 07:19] LABS: ALB/GLOB Ratio 0.7 RATIO (0.9-2.4); AST(SGOT) 14 U/L (15-37); Alanine Aminotransfer ALT/SGPT 24 U/L (13-56); Albumin, Serum 2.3 g/dL (3.2-5.0); Alkaline Phosphatase 86 U/L (45-117); Anion Gap 8 (5-15); BUN 13 mg/dL (7-18); BUN/Creat Ratio 6.5 RATIO (10-20); Calcium,Total 7.9 mg/dL (8.5-10.1); Chloride 107 mmol/L (98-107); Creatinine, Serum 1.99 mg/dL (0.55-1.02); EST Glomerular Filtration Rate 27 mL/min (>60); Est Glom Filt Rate - Afr Amer 33 mL/min (>60); Estimated Creatinine Clearance 25.18 ml/min; Globulin 3.5 g/dL (2.2-4.2); Glucose 85 mg/dL (74-106); Potassium 3.8 mmol/L (3.5-5.1); Protein, Total 5.8 g/dL (6.4-8.2); Sodium Level 135 mmol/L (136-145)
[2022-11-02] MEDS: Smz/Tmp Ds Tablet 0.5 TABLET PO ×2 (08:48→16:58)
[2022-11-02] MEDS: Pantoprazole Sodium 40 MG Tablet PO (08:49)
[2022-11-02] MEDS: Creon 24,000 unit DR Capsule 1 CAP PO ×2 (08:49→12:41)
[2022-11-02] MEDS: ARIPiprazole 5 MG Tablet PO (08:49)
[2022-11-02] MEDS: Cholecalciferol (VIT D3) 25 MCG TABLET (1,000 UNITS) 50 MCG PO (08:51)
[2022-11-02] MEDS: amLODIPine 2.5 MG Tablet PO (08:51)
--- NOTE | 2022-11-02 11:56 | PN.HOSP_ITS ---
Subjective Subjective Reports still feeling little dehydrated and not eating well Objective Data Objective Data Vital Signs: Vital Signs Temp Pulse Resp BP Pulse Ox O2 Del Method 97.8 F 78 18 144/81 H 98 Room Air 11/02/22 09:04 11/02/22 09:04 11/02/22 09:04 11/02/22 09:04 11/02/22 09:04 11/02/22 09:04 Oxygen Delivery Method Room Air Weight: 61.4 kg Body Mass Index (BMI) 23.7 Intake & Output: Intake and Output for Last 24 Hours 10/31/22 11/01/22 11/02/22 23:59 23:59 23:59 Intake Total 1000 / 1000 4298.0 / 4298.0 Output Total 800 / 800 Balance 1000 / 1000 3498.0 / 3498.0 Lab / Micro Data Result Diagrams: 11/02/22 05:20 11/02/22 05:20 Labs: Laboratory Results - last 24 hr 11/01/22 20:32: Sodium 130 L, Potassium 3.9, Chloride 100, Carbon Dioxide 20.0 L , Anion Gap 10, BUN 13, Creatinine 2.05 H, Estim Creat Clear Calc 24.44, Est GFR (MDRD) Af Amer 32 L, Est GFR (MDRD) Non-Af 26 L, BUN/Creatinine Ratio 6.3 L, Glucose 95, Calcium 8.2 L 11/01/22 22:28: WBC 12.5 H, RBC 3.80 L, Hgb 10.2 L, Hct 31.9 L, MCV 83.9, MCH 26.8 L, MCHC 32.0, RDW Std Deviation 42.8, RDW Coeff of Min 14.0, Plt Count 278, MPV 9.8, Immature Gran % (Auto) 1.400 H, Neut % (Auto) 66.4, Lymph % (Auto) 16.8 L, [place] % (Auto) 11.3 H, Eos % (Auto) 3.4, Baso % (Auto) 0.7, Absolute Neuts (auto) 8.3 H, Absolute Lymphs (auto) 2.10, Nucleated RBC % 0 11/02/22 05:20: WBC 10.0, RBC 3.48 L, Hgb 9.4 L, Hct 29.5 L, MCV 84.8, MCH 27.0, MCHC 31.9 L, RDW Std Deviation 43.5, RDW Coeff of Min 14.0, Plt Count 289, MPV 10.1, Immature Gran % (Auto) 0.900, Neut % (Auto) 62.9, Lymph % (Auto) 17.1 L, [place] % (Auto) 13.2 H, Eos % (Auto) 5.3 H, Baso % (Auto) 0.6, Absolute Neuts (auto) 6.3, Absolute Lymphs (auto) 1.71, Nucleated RBC % 0 11/02/22 05:20: Sodium 135 L, Potassium 3.8, Chloride 107, Carbon Dioxide 20.0 L , Anion Gap 8, BUN 13, Creatinine 1.99 H, Estim Creat Clear Calc 25.18, Est GFR (MDRD) Af Amer 33 L, Est GFR (MDRD) Non-Af 27 L, BUN/Creatinine Ratio 6.5 L, Glucose 85, Calcium 7.9 L, Total Bilirubin 0.20, AST 14 L, ALT 24, Alkaline Phosphatase 86, Total Protein 5.8 L, Albumin 2.3 L, Globulin 3.5, Albumin/Globulin Ratio 0.7 L Rhythm Strip Rhythm Strip: Sinus Rhythm Rate: 99 Ectopy: None Physical Exam Narrative General: Alert, oriented, no apparent distress HEENT: Atraumatic, normocephalic Eyes: Anicteric, normal conjunctiva, extraocular movements grossly intact Neck: Supple Respiratory: Clear to auscultation bilaterally, normal respiratory effort Cardiovascular: Regular rate and rhythm GI: Nontender, no rebound, guarding, rigidity Extremities: No edema Musculoskeletal: Moving all extremities Neuro: No overt focal neurological deficits Skin: No rashes appreciated Psych: Cooperative Assessment & Plan Assessment/Plan (1) Acute kidney injury: (2) Diarrhea: PLAN: Plan 57-year-old female history of alcoholic hepatitis, COPD, GERD who presented to [facility] 11/01 with poor urinary output and flank pain for 1 day. She was recently discharged from [facility] [place] after being transferred from [facility] with right orbital cellulitis for acute ophthalmology evaluation. Her stay was complicated by severe diarrhea and CHUY. She was on Augmentin and that was switched to Bactrim and had improvement in her CHUY. She was just discharged home 10/29. Since being home she has been trying to maintain hydration but her urine output has been decreasing and she has been having diarrhea. #Acute kidney injury, likely prerenal, secondary to volume depletion from acute diarrhea -Recently had similar presentation and was discharged on 10/29 -Creatinine on admission 2.05 -Given IV fluids, trend BMP -We will attempt to evaluate underlying cause for diarrhea I suspect this is why she is dehydrated -Slightly better today, we will decrease fluids to 100 -If does not continue to improve can consider further urine studies and kidney ultrasound #Acute diarrhea, acute C. difficile ruled out in the past several weeks -On Imodium as needed -Enteric panel pending -Does have slight downtrend in her hemoglobin, will obtain FOBT as well as stool lactoferrin/WBC and calprotectin as well as pH to assess for underlying etiology #COPD -Albuterol as needed #None anion gap metabolic acidosis secondary to acute diarrhea -Continue to monitor #Recent orbital cellulitis on the right -On Bactrim, last date will be 11/04. If kidney function does not improved can consider changing Bactrim Erythromycin application to the right eye #chronic medical conditions including bipolar disorder/depression/chronic pancreatitis//COPD, not in acute exacerbation/Hypertension These all complicates patient's care and recovery as well as management Continue on amlodipine hydroxyzine, Creon, mirtazapine, pantoprazole, simvastatin #DVT ppx: Heparin subcu Lisa Ochoa MD Time spent in the patient's overall evaluation,decision-making process, review of diagnostic data, adjustment of management, discussion with other providers, nursing nursing and ancillary staff involved in patient's care documentation, 30 minutes Charges/Coding Visit Charges Inpatient E&M: 41162 Subs Hosp L2
[2022-11-02] MEDS: Loperamide 2 MG Capsule PO ×2 (12:43→17:06)
[2022-11-02] MEDS: Ondansetron 4 MG/2 ML Vial IV (17:06)
[2022-11-02] MEDS: Albuterol 2.5 MG/3 ML VIAL.NEB. INHALATION (17:54)
--- NOTE | 2022-11-02 18:10 | NURSING ---
cps called for stat aerosol Rx. pt dim, scattered wheezes-POX is ($% on room air
--- NOTE | 2022-11-02 19:48 | EKG12_ITS ---
Test Reason : SHORTNESS OF BREATH Blood Pressure : / mmHG Vent. Rate : 151 BPM Atrial Rate : 151 BPM P-R Int : 124 ms QRS Dur : 084 ms QT Int : 270 ms P-R-T Axes : 080 084 061 degrees QTc Int : 427 ms Sinus tachycardia with frequent and consecutive Premature ventricular complexes Abnormal ECG When compared with ECG of 22-AUG-2022 16:50, Premature ventricular complexes are now Present Vent. rate has increased BY 66 BPM Confirmed by CLIFTON MENENDEZ, COCO ([id number]), online content editor CATHERINE PIERCE ([id number]) on 11/04/2022 2:09:02 PM Referred By: SWATI Confirmed By:COCO LAZO MD
--- NOTE | 2022-11-02 19:56 | RAD_ITS ---
EXAM: XR CHEST, 1 VIEW CLINICAL INDICATION: Respiratory Distress TECHNIQUE: Frontal view of the chest. This report was created using [employer] report generation technology. COMPARISON: 08.22.22 FINDINGS: LUNGS AND PLEURAL SPACES: Lower lobe infiltrate suggesting pneumonia. No pneumothorax. No effusion. HEART: Unremarkable. Cardiac silhouette not enlarged. MEDIASTINUM: Central airways and mediastinal contour are unremarkable. BONES/JOINTS: Unremarkable. SOFT TISSUES: Unremarkable. RAD/Chest 1 View (Portable) IMPRESSION: Lower lobe infiltrate suggesting pneumonia. Electronically Signed: Carl Zarco MD at 20:11 EST ,
[2022-11-02 20:06] LABS: Allen Test Positive; Base Excess -13 mmol/L (-2 to +2); Bicarbonate 15.9 mmol/L (22-26); Blood Gas Specimen Type ART; FI02 100; O2 Delivery Device NRB; PO2 80 mmHG (75-100); SITE R Radial; SO2 91 % (95-99); Total Carbon Dioxide 17 mmol/L; pCO2 46.9 mmHg (35-45); pH 7.14 (7.35-7.45)
[2022-11-02 20:07] LABS: Absolute Lymphocyte Count 2.24 X10^3/uL (0.83-4.51); Absolute Neutrophil Count 14.4 X10^3/uL (2.0-7.7); Basophil# 0.17 X10^3/uL; Basophil% 0.9 % (0-1); Eosinophil# 0.97 X10^3/uL; Hematocrit 34.1 % (37-47); Hemoglobin 10.7 g/dL (12.0-15.0); Lymphocyte # 2.24 X10^3/ul (0.83-4.51); Lymphocyte % 11.6 % (19-41); Mean Corp Hgb Conc 31.4 g/dL (32-36); Mean Corpuscular Hgb 27.1 pg (27.0-32.0); Mean Corpuscular Volume 86.3 fL (81-99); Mean Platelet Vol. 9.6 fl (6.2-12.0); Monocyte# 1.33 X10^3/uL; Monocyte% 6.9 % (0-10); NRBC Flagged by Analyzer 0 % (0-5); Neutrophil # 14.35 X10^3/uL (2.7-7.7); Neutrophil % 74.5 % (47-70); Platelet Count 372 K/mm3 (150-450); RBC Distribution Width CV 14.4 % (11.6-14.6); RBC Distribution Width SD 45.7 fl (35.1-43.9); Red Blood Count 3.95 M/mm3 (4.2-5.4); White Blood Count 19.3 K/mm3 (4.4-11.0)
[2022-11-02] MEDS: Ipratropium 0.5 MG/2.5 ML SOLUTION INHALATION ×3 (20:15→22:54)
--- NOTE | 2022-11-02 20:15 | PCM.HOSP.N ---
Hospitalist Note Rapid response team called due to hypoxia and appearing edwards. Nursing with check on the patient and noted that she was very listless, frothing at the mouth and appeared edwards. Pulse ox was noted to be in the 70s. Patient was put on a nonrebreather and her mentation improved and pulse ox went to the 90s. On exam, patient had diminished breath sounds throughout but no crackles. No lower extremity edema. Heart rate was tachycardic. Patient was moved to progressive care unit for further monitoring. Chest x-ray was personally reviewed and showed right lower lobe atelectasis. EKG was reviewed and shows some baseline artifact but appear to be sinus tachycardia. ABG performed and showed pH of 7.14, PCO2 of 46.9 and PO2 of 80. Consistent with metabolic acidosis but concomitant respiratory acidosis. Feel the patient's respiratory failure is probably due to her underlying lung disease and atelectasis. We will place her on BiPAP but also compounding this is a metabolic acidosis. Patient has been receiving IV fluids but does not appear to be volume overloaded. BMP is currently pending but will give the patient 2 liters of bicarb. Consult CCM. Transferred to the intensive care unit for closer monitoring. Currently, the patient's vital signs are stable but given her acid-base imbalance, respiratory failure patient would be best observed in the ICU least overnight. Greater than 45 minutes of critical care time. Procedures Hospitalists Procedures: [id number] Critial Care 1st Hr
[2022-11-02 20:26] LABS: ALB/GLOB Ratio 0.6 RATIO (0.9-2.4); AST(SGOT) 31 U/L (15-37); Alanine Aminotransfer ALT/SGPT 29 U/L (13-56); Albumin, Serum 2.8 g/dL (3.2-5.0); Alkaline Phosphatase 114 U/L (45-117); Anion Gap 9 (5-15); BUN 15 mg/dL (7-18); BUN/Creat Ratio 8.3 RATIO (10-20); Calcium,Total 8.3 mg/dL (8.5-10.1); Chloride 111 mmol/L (98-107); EST Glomerular Filtration Rate 31 mL/min (>60); Est Glom Filt Rate - Afr Amer 37 mL/min (>60); Estimated Creatinine Clearance 27.84 ml/min; Globulin 4.5 g/dL (2.2-4.2); Glucose 263 mg/dL (74-106); Potassium 4.2 mmol/L (3.5-5.1); Protein, Total 7.3 g/dL (6.4-8.2); Sodium Level 138 mmol/L (136-145); Troponin-I HS 92 pg/mL (3.0-54.0)
[2022-11-02] MEDS: LORazepam 2 MG/ML Syringe 0.5 MG IV (20:59)
--- NOTE | 2022-11-02 21:08 | PCM.PN.BLA ---
Progress Note Seen patient in ICU. She is in severe respiratory distress, tachypneic, increased used of accessory muscles of respiratory. Patient states she is having severe anxiety attack Lung exam: Significant wheezes Given IV solumedrol and IV ativan 0.5mg x1 Started on Bipap, appears to be calm DC Duoneb, Ipratropium breathing treatments Q2h for 2 treatments, then Q4H Repeat ABG in 1 hour CXR done this evening showed left lower infiltrate Patient is on Bactrim for orbital cellulitis; will add IV Zosyn for now.
--- NOTE | 2022-11-02 22:15 | CPS ---
Critical ABG jody, Dr. Torres aware
[2022-11-02 23:11] LABS: Allen Test Positive; Base Excess -8 mmol/L (-2 to +2); Bicarbonate 18.3 mmol/L (22-26); Blood Gas Specimen Type ART; FI02 45; O2 Delivery Device BiPAP; PEEP 8; PO2 111 mmHG (75-100); RR 12; SITE R Radial; SO2 98 % (95-99); Total Carbon Dioxide 19 mmol/L; pCO2 34.6 mmHg (35-45); pH 7.33 (7.35-7.45)
[2022-11-03] VITALS (24 sets, daily range): BP systolic 94–203; BP diastolic 49–135; PULSE 77–139; RESP 12–30; TEMP 37.2–39.2; O2SAT 93–98
[2022-11-03] MEDS: 0.9% Normal Saline 1,000 ML 75 ML IV ×2 (01:04→13:46)
[2022-11-03] MEDS: Erythromycin Base 1 OPTH.TUBE 1 APPLIC RIGHT EYE ×4 (01:04→17:21)
[2022-11-03] MEDS: Acetaminophen 325 MG Tablet 650 MG PO ×3 (02:22→17:25)
[2022-11-03] MEDS: guaiFENesin 1,200 MG Tablet 1200 MG PO ×3 (02:22→21:46)
[2022-11-03] MEDS: hydrOXYzine PAM 25 MG Capsule PO (02:27)
[2022-11-03 05:14] LABS: Absolute Lymphocyte Count 0.34 X10^3/uL (0.83-4.51); Absolute Neutrophil Count 14.5 X10^3/uL (2.0-7.7); Basophil# 0.02 X10^3/uL; Basophil% 0.1 % (0-1); Eosinophil# 0.01 X10^3/uL; Eosinophils% 0.1 % (0-5); Hematocrit 26.7 % (37-47); Hemoglobin 8.6 g/dL (12.0-15.0); Lymphocyte # 0.34 X10^3/ul (0.83-4.51); Lymphocyte % 2.2 % (19-41); Mean Corp Hgb Conc 32.2 g/dL (32-36); Mean Corpuscular Hgb 27.5 pg (27.0-32.0); Mean Corpuscular Volume 85.3 fL (81-99); Mean Platelet Vol. 9.7 fl (6.2-12.0); Monocyte# 0.29 X10^3/uL; Monocyte% 1.9 % (0-10); NRBC Flagged by Analyzer 0 % (0-5); Neutrophil % 94.5 % (47-70); POSITIVE DIFFERENTIAL YES; Platelet Count 271 K/mm3 (150-450); RBC Distribution Width CV 14.5 % (11.6-14.6); RBC Distribution Width SD 45.1 fl (35.1-43.9); Red Blood Count 3.13 M/mm3 (4.2-5.4); White Blood Count 15.3 K/mm3 (4.4-11.0)
[2022-11-03 05:17] LABS: Differential Indicated SCAN CRITERIA MET
[2022-11-03 05:33] LABS: ALB/GLOB Ratio 0.6 RATIO (0.9-2.4); AST(SGOT) 36 U/L (15-37); Alanine Aminotransfer ALT/SGPT 31 U/L (13-56); Albumin, Serum 2.2 g/dL (3.2-5.0); Alkaline Phosphatase 97 U/L (45-117); Anion Gap 8 (5-15); BUN 18 mg/dL (7-18); Chloride 113 mmol/L (98-107); Creatinine, Serum 2.01 mg/dL (0.55-1.02); EST Glomerular Filtration Rate 27 mL/min (>60); Est Glom Filt Rate - Afr Amer 33 mL/min (>60); Estimated Creatinine Clearance 24.93 ml/min; Globulin 3.5 g/dL (2.2-4.2); Glucose 146 mg/dL (74-106); Potassium 3.9 mmol/L (3.5-5.1); Protein, Total 5.7 g/dL (6.4-8.2); Sodium Level 139 mmol/L (136-145)
[2022-11-03] MEDS: 0.9% Saline Lock 10 ML Syringe IV (06:10)
[2022-11-03] MEDS: busPIRone 5 MG Tablet 10 MG PO ×3 (06:10→21:46)
[2022-11-03] MEDS: Heparin Injection (Vial) 5,000 UNIT/ML VIAL 5000 UNIT SC ×3 (06:10→21:46)
[2022-11-03] MEDS: Ipratropium 0.5 MG/2.5 ML SOLUTION INHALATION ×4 (06:35→19:34)
--- NOTE | 2022-11-03 07:10 | CON.PCM.CC_ITS ---
Assessment & Plan Assessment/Plan (1) Stage 3 severe COPD by GOLD classification: PLAN: Plan RECOMMENDATIONS: 1. Continue 2 L/min of supplemental oxygen per baseline. 2. Continue bronchodilators. 3. Continue outpatient antimicrobials to address previously diagnosed periorbital cellulitis. 4. Discontinue IV steroids. 5. Recommend aggressive medical management of anxiety. Continue BuSpar. Will add as needed Ativan as well. 6. Encourage incentive spirometer use and mobilize patient as tolerated. 7. The patient is medically stable for transfer out of the intensive care unit. IMPRESSIONS: 1. Acute on chronic hypoxemic respiratory failure The patient was transferred to the medical intensive care unit after becoming increasingly hypoxic with increased work of breathing, likely precipitated by an acute panic attack/generalized anxiety disorder. The patient has known obstructive lung disease and is already on triple therapy inhaler regimen on an outpatient basis. She does have a baseline 2 L/min oxygen requirement. There does not appear to be any acute cardiopulmonary process on chest imaging. The patient has known air trapping on her PFTs and will be prone to respiratory decompensation if she experiences future panic attacks. I agree with continuing scheduled bronchodilators as ordered. Continue BuSpar to address underlying anxiety. In addition, will add as needed Ativan to her anxiolytic regimen. 2. Diarrheal illness Unclear etiology. Defer further work-up and management to hospitalist. 3. Acute kidney injury Likely secondary to intravascular volume depletion/prerenal etiology in the setting of diarrhea. Continue supplemental IV fluid hydration. Continue to monitor urine output. No current indication for renal replacement therapy. 4. Recent hospitalization for periorbital cellulitis/bipolar disorder/depression/anxiety/chronic pancreatitis Complicates care, management, recovery and prognosis. Continue home medications as indicated. This note was generated with [employer] dictation software. It may contain incorrect words, spelling, and punctuation that were not noted in checking the note before signing. HPI Consult Data Date of Consult: 11/03/22 HPI Narrative Reason for Consultation: Respiratory failure HPI Narrative: The patient is a 57-year-old female, with a history as outlined below, who presented to the emergency department on November 01 with nausea, vomiting and diarrhea. The patient has a known history of COPD, chronic hypoxemic respiratory failure and tobacco dependency. She is currently followed by Dr. Perdue in the pulmonary medicine clinic. The patient is supposed to be utilizing Trelegy Ellipta daily as her maintenance inhaler medication. The patient was recently admitted in [place] for periorbital cellulitis. The patient reported to me that she has not smoked a cigarette for approximately 1 m ont. She utilizes 2 L/min of supplemental oxygen at her baseline. On presentation to the emergency department, the patient was noted to be afebrile hemodynamically stable. She was initially documented to be saturating 92% on room air at rest. Initial laboratory evaluation revealed a white blood cell count of 12,000. Chemistry profile was notable for a sodium of 130, bicarbonate of 20 and creatinine of 2.05. The patient was initially admitted to the medical surgical floor where she was maintained on supplemental IV fluids and as needed bronchodilators therapy. On the evening of November 02, a rapid response team was called as the patient was noted to be cyanotic in appearance with worsening hypoxemia. The patient was subsequently placed on BiPAP and transferred to the medical intensive care unit. She was treated with IV Solu-Medrol, Ativan and aerosol treatments. [facility] Medical History Abdominal pain Alcohol abuse Alcoholic hepatitis Anemia Anxiety and depression Arthritis Asthma Benign hypertension Chronic pancreatitis COPD (chronic obstructive pulmonary disease) Diarrhea GERD (gastroesophageal reflux disease) History of back problems HPV (human papilloma virus) infection Nicotine dependence, cigarettes, uncomplicated Tobacco abuse Unintentional weight loss Home Medications cholecalciferol (vitamin D3) 50 mcg (2,000 unit) capsule 50 mcg PO DAILY SUPPLEMENT 12/29/18 [History Last Taken 10/31/22] pantoprazole 40 mg tablet,delayed release 40 mg PO DAILY GERD 08/12/20 [History Last Taken 10/31/22] albuterol sulfate 90 mcg/actuation aerosol inhaler (Ventolin HFA) 2 puff inhalation Q4H PRN shortness of breath or wheezing #18 grams 11/14/20 [Rx Last Taken Unknown] aripiprazole 5 mg tablet (Abilify) 5 mg PO DAILY mood 01/22/21 [History Last Taken 10/31/22] hydroxyzine pamoate 25 mg capsule 25 mg PO Q6H PRN PRN Itching 06/12/21 [History Last Taken 10/31/22] mirtazapine 45 mg tablet 45 mg PO QHS sleep 01/16/22 [History Last Taken 10/31/22] amlodipine 2.5 mg tablet 2.5 mg PO DAILY BP 11/01/22 [History Last Taken Unknown] erythromycin 5 mg/gram (0.5 %) eye ointment 0.5 inch RIGHT EYE Q6H antibiotic 11/01/22 [History Last Taken Unknown] hgyjes-lhdeprfv-lyinpzz 24,000-76,000-120,000 unit capsule,delayed rel (Creon) 1 cap PO TIDCM Check with primary doctor 11/01/22 [History Last Taken 10/31/22] loperamide 2 mg capsule 2 mg PO Q4H PRN PRN Diarrhea 11/01/22 [History Last Taken Unknown] polyvinyl alcohol 1.4 % eye drops 2 drp ophthalmic (eye) Q6H eye infection 11/01/22 [History Last Taken 11/01/22] simvastatin 20 mg tablet 20 mg PO QHS cholesterol 11/01/22 [History Last Taken 10/31/22] sulfamethoxazole 800 mg-trimethoprim 160 mg tablet 1 tab PO BID antibiotic 11/01/22 [History Last Taken 11/01/22] Allergy/AdvReac Type Severity Reaction Status Date / Time Penicillins Allergy Hives Verified 11/01/22 19:37 hydrocodone [From [place]] AdvReac Itching Verified 11/01/22 19:37 Family History Mother Diabetes Hypertension Heart disease High cholesterol Arthritis Thyroid disorder Brother Hypertension Sister Cancer cervical Thyroid disorder Father Kidney disease Daughter Thyroid disorder Surgical History History of appendectomy History of colonoscopy History of tubal ligation Social History Smoking Status: Former smoker quit date: 02/20/18 pack-years: 75 Tobacco: How many years used: 30 second hand exposure: Yes alcohol intake: current alcohol intake frequency: 3 or more drinks per day Alcohol type: beer substance use type: does not use caffeine: Yes ROS ROS Narrative 10 systems reviewed with pertinent positives as noted in the HPI above. Physical Exam Const alert, oriented x3 and no apparent distress General Appearance: cooperative HEENT normocephalic and head/scalp atraumatic Eyes PERRL, EOMs intact bilaterally and conjunctivae normal Neck supple General: trachea midline Chest inspection of chest normal Resp normal respiratory effort Auscultation: diminished lung sounds; Negative for rales, rhonchi or wheezes Cardio regular rate and regular rhythm GI normal to inspection, nondistended, normoactive bowel sounds Extremity no clubbing, cyanosis or edema Skin no rashes or lesions noted Neuro oriented x3, CN's II-XII intact bilaterally and moves all extremities Psych cooperative Mood & Affect: anxious Lab / Micro Data Result Diagrams: 11/03/22 05:06 11/03/22 05:06 Labs: Laboratory Results - last 24 hr 11/02/22 05:20: Sodium 135 L, Potassium 3.8, Chloride 107, Carbon Dioxide 20.0 L , Anion Gap 8, BUN 13, Creatinine 1.99 H, Estim Creat Clear Calc 25.18, Est GFR (MDRD) Af Amer 33 L, Est GFR (MDRD) Non-Af 27 L, BUN/Creatinine Ratio 6.5 L, Glu cose 85, Calcium 7.9 L, Total Bilirubin 0.20, AST 14 L, ALT 24, Alkaline Phosphatase 86, Total Protein 5.8 L, Albumin 2.3 L, Globulin 3.5, Albumin/Globulin Ratio 0.7 L 11/02/22 20:00: WBC 19.3 H, RBC 3.95 L, Hgb 10.7 L, Hct 34.1 L, MCV 86.3, MCH 27.1, MCHC 31.4 L, RDW Std Deviation 45.7 H, RDW Coeff of Min 14.4, Plt Count 372, MPV 9.6, Immature Gran % (Auto) 1.100 H, Neut % (Auto) 74.5 H, Lymph % (Auto) 11.6 L, [place] % (Auto) 6.9, Eos % (Auto) 5.0, Baso % (Auto) 0.9, Absolute Neuts (auto) 14.4 H, Absolute Lymphs (auto) 2.24, Nucleated RBC % 0 11/02/22 20:00: Sodium 138, Potassium 4.2, Chloride 111 H, Carbon Dioxide 18.0 L , Anion Gap 9, BUN 15, Creatinine 1.80 H, Estim Creat Clear Calc 27.84, Est GFR (MDRD) Af Amer 37 L, Est GFR (MDRD) Non-Af 31 L, BUN/Creatinine Ratio 8.3 L, Glucose 263 H, Calcium 8.3 L, Total Bilirubin 0.20, AST 31, ALT 29, Alkaline Phosphatase 114, Troponin I High Sens 92 H, Total Protein 7.3, Albumin 2.8 L, Globulin 4.5 H, Albumin/Globulin Ratio 0.6 L 11/03/22 05:06: WBC 15.3 H, RBC 3.13 L, Hgb 8.6 L, Hct 26.7 L, MCV 85.3, MCH 27.5, MCHC 32.2, RDW Std Deviation 45.1 H, RDW Coeff of Min 14.5, Plt Count 271, MPV 9.7, Immature Gran % (Auto) 1.200 H, Neut % (Auto) 94.5 H, Lymph % (Auto) 2.2 L, [place] % (Auto) 1.9, Eos % (Auto) 0.1, Baso % (Auto) 0.1, Absolute Neuts (auto) 14.5 H, Absolute Lymphs (auto) 0.34 L, Nucleated RBC % 0 11/03/22 05:06: Sodium 139, Potassium 3.9, Chloride 113 H, Carbon Dioxide 18.0 L , Anion Gap 8, BUN 18, Creatinine 2.01 H, Estim Creat Clear Calc 24.93, Est GFR (MDRD) Af Amer 33 L, Est GFR (MDRD) Non-Af 27 L, BUN/Creatinine Ratio 9.0 L, Glucose 146 H, Calcium 8.0 L, Total Bilirubin 0.20, AST 36, ALT 31, Alkaline Phosphatase 97, Total Protein 5.7 L, Albumin 2.2 L, Globulin 3.5, Albumin/Globulin Ratio 0.6 L Micro: Microbiology 11/02/22 09:15 Stool Stool Lactoferrin - Final 11/02/22 09:15 Stool Stool Occult Blood (AGNIESZKA) - Final ABG Data ABG results: ABG 11/02/22 11/02/22 19:59 23:05 Specimen Type ART ART Sample Site R Radial R Radial pH 7.14 L* 7.33 L Bicarbonate Actual 15.9 L 18.3 L Total CO2 17 19 Base Excess -13 L -8 L O2 Saturation 91 L 98 O2 % 100 45 ABG pCO2 46.9 H 34.6 L ABG pO2 80 111 H Alexis Test Positive Positive Respiration Rate 12 O2 Delivery Device NRB BiPAP POC PEEP 8 Crit Call To/Read Back Yes Rhythm Strip Rhythm Strip: Sinus Rhythm Rate: 99 Ectopy: None Radiology Impression Chest X-Ray 11/02/22 19:56 IMPRESSION: Lower lobe infiltrate suggesting pneumonia. Electronically Signed: Carl Zarco MD at 20:11 EST Reading Location ID and State: [address] [place] [address] , Service support , Charges/Coding Visit Charges Inpatient E&M: 87675 Init Hosp L3
[2022-11-03] MEDS: ARIPiprazole 5 MG Tablet PO (08:11)
[2022-11-03] MEDS: Cholecalciferol (VIT D3) 25 MCG TABLET (1,000 UNITS) 50 MCG PO (08:12)
[2022-11-03] MEDS: Pantoprazole Sodium 40 MG Tablet PO (08:12)
[2022-11-03] MEDS: Smz/Tmp Ds Tablet 0.5 TABLET PO ×2 (08:13→17:21)
[2022-11-03] MEDS: Loperamide 2 MG Capsule PO (08:18)
[2022-11-03] MEDS: LORazepam 0.5 MG Tablet PO ×3 (09:12→21:46)
[2022-11-03] MEDS: amLODIPine 2.5 MG Tablet PO (09:13)
--- NOTE | 2022-11-03 15:01 | PN.HOSP_ITS ---
Subjective Subjective Patient seen and examined. She had no active complaints and had an uneventful night. Review of systems is otherwise negative. She has remained hemodynamically stable. She was transferred emergently to the ICU on account of severe respiratory distress. She was found to be tachycardic, with increased use of respiratory muscles. She said she was having severe anxiety attack.She feels much better today. Review of systems is otherwise negative. CXR showed left lower lobe infiltrate. Objective Data Objective Data Vital Signs: Vital Signs Temp Pulse Resp BP Pulse Ox O2 Del Method O2 Flow Rate 99.7 F H 101 H 24 H 136/77 H 95 Nasal Cannula 2 11/03/22 14:00 11/03/22 14:00 11/03/22 14:00 11/03/22 14:00 11/03/22 14:00 11/03/22 14:30 11/03/22 14:30 FiO2 30 11/03/22 01:08 Oxygen Flow Rate (L/min) 2 Oxygen Delivery Method Nasal Cannula Weight: 137 lb 9.095 oz Body Mass Index (BMI) 23.7 Intake & Output: Intake and Output for Last 24 Hours 11/01/22 11/02/22 11/03/22 23:59 23:59 23:59 Intake Total 1000 / 1000 7461.42 / 7461.42 1528.5 / 1528.5 Output Total 800 / 800 600 / 600 Balance 1000 / 1000 6661.42 / 6661.42 928.5 / 928.5 Lab / Micro Data Result Diagrams: 11/03/22 05:06 11/03/22 05:06 Labs: Laboratory Results - last 24 hr 11/02/22 20:00: WBC 19.3 H, RBC 3.95 L, Hgb 10.7 L, Hct 34.1 L, MCV 86.3, MCH 27.1, MCHC 31.4 L, RDW Std Deviation 45.7 H, RDW Coeff of Min 14.4, Plt Count 372, MPV 9.6, Immature Gran % (Auto) 1.100 H, Neut % (Auto) 74.5 H, Lymph % (Auto) 11.6 L, [place] % (Auto) 6.9, Eos % (Auto) 5.0, Baso % (Auto) 0.9, Absolute Neuts (auto) 14.4 H, Absolute Lymphs (auto) 2.24, Nucleated RBC % 0 11/02/22 20:00: Sodium 138, Potassium 4.2, Chloride 111 H, Carbon Dioxide 18.0 L , Anion Gap 9, BUN 15, Creatinine 1.80 H, Estim Creat Clear Calc 27.84, Est GFR (MDRD) Af Amer 37 L, Est GFR (MDRD) Non-Af 31 L, BUN/Creatinine Ratio 8.3 L, Glucose 263 H, Calcium 8.3 L, Total Bilirubin 0.20, AST 31, ALT 29, Alkaline Phosphatase 114, Troponin I High Sens 92 H, Total Protein 7.3, Albumin 2.8 L, Globulin 4.5 H, Albumin/Globulin Ratio 0.6 L 11/03/22 05:06: WBC 15.3 H, RBC 3.13 L, Hgb 8.6 L, Hct 26.7 L, MCV 85.3, MCH 2 7.5, MCHC 32.2, RDW Std Deviation 45.1 H, RDW Coeff of Min 14.5, Plt Count 271, MPV 9.7, Immature Gran % (Auto) 1.200 H, Neut % (Auto) 94.5 H, Lymph % (Auto) 2.2 L, [place] % (Auto) 1.9, Eos % (Auto) 0.1, Baso % (Auto) 0.1, Absolute Neuts (auto) 14.5 H, Absolute Lymphs (auto) 0.34 L, Nucleated RBC % 0 11/03/22 05:06: Sodium 139, Potassium 3.9, Chloride 113 H, Carbon Dioxide 18.0 L , Anion Gap 8, BUN 18, Creatinine 2.01 H, Estim Creat Clear Calc 24.93, Est GFR (MDRD) Af Amer 33 L, Est GFR (MDRD) Non-Af 27 L, BUN/Creatinine Ratio 9.0 L, Glucose 146 H, Calcium 8.0 L, Total Bilirubin 0.20, AST 36, ALT 31, Alkaline Phosphatase 97, Total Protein 5.7 L, Albumin 2.2 L, Globulin 3.5, Albumin/Globulin Ratio 0.6 L Micro: Microbiology 11/03/22 07:40 Mucosa - Nasopharyngeal Respiratory Panel (PCR) - Final 11/02/22 09:15 Stool Stool Lactoferrin - Final 11/02/22 09:15 Stool Stool Occult Blood (AGNIESZKA) - Final ABG Data ABG results: ABG 11/02/22 11/02/22 19:59 23:05 Specimen Type ART ART Sample Site R Radial R Radial pH 7.14 L* 7.33 L Bicarbonate Actual 15.9 L 18.3 L Total CO2 17 19 Base Excess -13 L -8 L O2 Saturation 91 L 98 O2 % 100 45 ABG pCO2 46.9 H 34.6 L ABG pO2 80 111 H Alexis Test Positive Positive Respiration Rate 12 O2 Delivery Device NRB BiPAP POC PEEP 8 Crit Call To/Read Back Yes Radiography Diagnostic Testing: Radiology Impression Chest X-Ray 11/02/22 19:56 IMPRESSION: Lower lobe infiltrate suggesting pneumonia. Electronically Signed: Carl Zarco MD at 20:11 EST , Rhythm Strip Rhythm Strip: Sinus Rhythm Rate: 99 Ectopy: None Physical Exam Const alert, oriented x3 and no apparent distress HEENT head/scalp atraumatic, moist oral mucous membranes and oropharynx normal Head and Scalp: normocephalic Mouth: oral and palatal mucosa normal Eyes PERRL, EOMs intact bilaterally and conjunctivae normal Neck no lymphadenopathy and supple Resp Resp Narrative: diminished breath sounds bibasally, no wheezes or crackles. on 2L of oxygen by nasal canula. Cardio regular rate, regular rhythm, S1 normal heart sound and S2 normal heart sound GI normal to inspection, nondistended, normoactive bowel sounds, soft to palpation, non-tender and non-distended Extremity normal to inspection, full ROM and no clubbing, cyanosis or edema Neuro oriented x3, CN's II-XII intact bilaterally and moves all extremities Sensorium / Orientation: awake and alert Motor Exam: strength 5/5 throughout Psych affect normal Assessment & Plan Assessment/Plan (1) Nausea & vomiting: (2) Diarrhea: PLAN: Plan #Acute renal injury due to volume depletion due to acute diarrhea * Cr on admission was 2.05; hydrate gently with iVF * renal USG: * nephrology on board * #Acute diarrhea * C diff ruled ou8t * on immodium. * stool studies pending * #Community acquired pneumonia * was transferred emergently to ICU due to acute respiratory distress * CXR showed evidence of pneumonia * on Iv zosyn * critical care on board. * #COPD: * breathing treatment with bronchodilators. * Titrate oxygen to maintain sats > 90% * not in exacerbation #Non anion gap metabolic acidosis due to diarrhea * resolved. * #Recent right orbital cellulitis * on bactrim, with end date of 11/04. * on erythromycin eye drops. * #Bipolar disorder and depression: on aripiprazole and buspar as well as remeron. #Chronic pancreatitis: on Creon. #Hypertension:on amlodipine DVT prophylaxis: lovenox Charges/Coding Visit Charges Inpatient E&M: 91777 Subs Hosp L3 Reason for Visit Reason for Visit: Diagnoses Chronic obstructive pulmonary disease, unspecified (11/01/22) Acute kidney failure, unspecified (11/01/22) Diarrhea, unspecified (11/01/22)
--- NOTE | 2022-11-03 15:40 | CASEMGMT ---
RN YANI DEPUTY COURT CLERK CM to room to meet with patient for initial transition planning/care coordination assessment. SARWAT LOMELI introduced self and role at [facility]. Pt voices understanding and consents to assessment at this time. Pt resting in bed in no distress at this time. Pt is A/O at this time and answers all questions appropriately. Care providers, pharmacy, and demographics verified/updated at this time. PCP: Dr Singh, LIABILITY ANALYST Heather Older Specialists: Dr Perdue-pulmonology, [facility] Preferred Pharmacy: [facility] Retail Insurance: [employer] Prescription Benefit: Yes Living Will/HPOA: Pt does not currently have LW/HCPOA and declines info at this time. LNOK:3 children: Kasie, Milan, Kirsten. Sister, Domonique. Living Arrangements: Lives w/granddaughter, Leo (age 21) in 2-story home w/6 steps to enter. Denies difficulty w/stairs. Indep w/ADL's and manages her own medications. Pt and grand-dtr share home mgmt tasks. Transportation: [facility] Van, [employer] public transport DME: States has the following DME: O2 @ 2l/m through [employer]-pt states she wears it @ HS and PRN w/exertion. Call to Cheri @ [employer]. Current orders are 2 l/m continuous through [facility]. Pt states she tried the [facility] a couple years ago, but states, I couldn't handle it and so she does not wear it. Pt has a concentrator and portable tanks and states family can bring one in to go home on @ d/c. Pt also has a nebulizer and pulse ox. She states she would like to get a shower chair. She denies preference of DME co. She states if her sister can pick one up, but she would like a script for one. Pt states no need for further DME at this time. HHC/SNF: No hx of either. Denies need for HHC at this time. Pt wishes to return home and states has no concerns with going home at time of discharge. Pt states she used to smoke, but quit cold turkey about a month ago. She states she also used to drink, but quit cold turkey about 2 months ago. CM to follow for any increase in home oxygen needs and any further discharge planning/needs. Pt voices no further concerns/needs at this time. Advised pt to ask for CM if any further questions/concerns/needs arise. Voices understanding. PLAN: Home w/family support and discharge plans in place. Pt would like a script for shower chair. Jenny GALLOWAY RN CM
--- NOTE | 2022-11-03 16:08 | CHAPLAIN ---
Type of Pastoral Visit _x__ Initial Visit ___ Follow-up Visit ___ On-call Visit ___ General Patient Visit ___ Spiritual Assessment ___ Family Conference ___ Bereavement ___ Rapid Response ___ Code Blue ___ Other (describe below) Pastoral Care Referral From _x__ Patient ___ Family ___ Nurse ___ Physician ___ Per Diem ___ English Adjunct Faculty ___ Other (describe below) Sacrament/Intervention _x__ Active listening ___ Anointing ___ Zoroastrianism ___ Bereavement ___ Communion ___ Swpana exploration ___ ___ Life review _x__ Prayer ___ Reconciliation ___ Sacrament of Sick _x__ Supportive presence ___ Wedding ___ Other (describe below) Pastoral Comments 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
[2022-11-03] MEDS: Atorvastatin Calcium 10 MG Tablet PO (21:46)
[2022-11-03] MEDS: Mirtazapine 15 MG Tablet 45 MG PO (21:46)
[2022-11-04] VITALS (26 sets, daily range): BP systolic 88–180; BP diastolic 46–110; PULSE 95–130; RESP 2–42; TEMP 37–38.7; O2SAT 81–100
[2022-11-04] MEDS: 0.9% Normal Saline 1,000 ML 75 ML IV (02:17)
[2022-11-04] MEDS: LORazepam 0.5 MG Tablet PO (04:35)
[2022-11-04] MEDS: Heparin Injection (Vial) 5,000 UNIT/ML VIAL 5000 UNIT SC ×2 (04:38→13:12)
[2022-11-04] MEDS: busPIRone 5 MG Tablet 10 MG PO (04:39)
[2022-11-04 05:20] LABS: Absolute Lymphocyte Count 1.54 X10^3/uL (0.83-4.51); Absolute Neutrophil Count 22.2 X10^3/uL (2.0-7.7); Basophil# 0.11 X10^3/uL; Basophil% 0.4 % (0-1); Differential Indicated SCAN CRITERIA MET; Eosinophil# 1.62 X10^3/uL; Eosinophils% 5.9 % (0-5); Hematocrit 29.3 % (37-47); Hemoglobin 9.3 g/dL (12.0-15.0); Lymphocyte # 1.54 X10^3/ul (0.83-4.51); Lymphocyte % 5.6 % (19-41); Mean Corp Hgb Conc 31.7 g/dL (32-36); Mean Corpuscular Hgb 27.1 pg (27.0-32.0); Mean Corpuscular Volume 85.4 fL (81-99); Mean Platelet Vol. 9.8 fl (6.2-12.0); Monocyte# 1.25 X10^3/uL; Monocyte% 4.6 % (0-10); NRBC Flagged by Analyzer 0 % (0-5); Neutrophil # 22.19 X10^3/uL (2.7-7.7); Neutrophil % 81.2 % (47-70); POSITIVE DIFFERENTIAL YES; Platelet Count 362 K/mm3 (150-450); RBC Distribution Width CV 15.4 % (11.6-14.6); RBC Distribution Width SD 48.6 fl (35.1-43.9); Red Blood Count 3.43 M/mm3 (4.2-5.4); White Blood Count 27.4 K/mm3 (4.4-11.0)
[2022-11-04 05:40] LABS: Anisocytosis 1+
[2022-11-04] MEDS: Acetaminophen 325 MG Tablet 650 MG PO (05:43)
--- NOTE | 2022-11-04 07:09 | PN.CC_ITS ---
Assessment & Plan Assessment/Plan (1) Stage 3 severe COPD by GOLD classification: PLAN: Plan RECOMMENDATIONS: 1. Continue 2 L/min of supplemental oxygen per baseline. 2. Continue bronchodilators. 3. Continue outpatient antimicrobials to address previously diagnosed periorbital cellulitis. 4. Continue aggressive medical management of anxiety. Continue BuSpar and as needed Ativan. 5. Encourage incentive spirometer use and mobilize patient as tolerated. 6. Given that the patient is at her baseline from a pulmonary perspective, we will sign off. Please call with any additional questions. IMPRESSIONS: 1. Acute on chronic hypoxemic respiratory failure The patient was transferred to the medical intensive care unit after becoming increasingly hypoxic with increased work of breathing, likely precipitated by an acute panic attack/generalized anxiety disorder. The patient has known obstructive lung disease and is already on triple therapy inhaler regimen on an outpatient basis. She does have a baseline 2 L/min oxygen requirement. There does not appear to be any acute cardiopulmonary process on chest imaging. The patient has known air trapping on her PFTs and will be prone to respiratory decompensation if she experiences future panic attacks. I agree with continuing scheduled bronchodilators as ordered. Continue BuSpar and as needed Ativan to address underlying anxiety. 2. Diarrheal illness Unclear etiology. Defer further work-up and management to hospitalist. 3. Acute kidney injury Likely secondary to intravascular volume depletion/prerenal etiology in the setting of diarrhea. Continue to monitor urine output. No current indication for renal replacement therapy. 4. Recent hospitalization for periorbital cellulitis/bipolar d isorder/depression/anxiety/chronic pancreatitis Complicates care, management, recovery and prognosis. Continue home medications as indicated. This note was generated with [facility] dictation software. It may contain incorrect words, spelling, and punctuation that were not noted in checking the note before signing. Subjective Subjective The patient was seen and examined at the bedside this morning. Events from the last 24 hours have been reviewed. The patient is currently afebrile, hemodynamically stable and maintaining appropriate oxygen saturations on her baseline 2 L/min via nasal cannula. The patient is currently documented to be overall net +9.3 L for the hospitalization. Objective Data Objective Data The patient's most recent lab work, culture data and imaging studies have all been personally reviewed. Infectious work-up has been unrevealing to date. Vital Signs: Vital Signs Temp Pulse Resp BP Pulse Ox O2 Del Method O2 Flow Rate 98.8 F 116 H 20 H 169/95 H 96 Nasal Cannula 2 11/04/22 04:00 11/04/22 04:00 11/04/22 04:00 11/04/22 04:00 11/04/22 04:00 11/04/22 04:00 11/04/22 04:00 FiO2 30 11/03/22 22:24 Oxygen Flow Rate (L/min) 2 Oxygen Delivery Method Nasal Cannula Weight: 137 lb 9.095 oz Body Mass Index (BMI) 23.7 Intake & Output: Intake and Output for Last 24 Hours 11/02/22 11/03/22 11/04/22 23:59 23:59 23:59 Intake Total 7461.42 / 7461.42 2556.0 / 2556.0 791.25 / 791.25 Output Total 800 / 800 1000 / 1000 650 / 650 Balance 6661.42 / 6661.42 1556.0 / 1556.0 141.25 / 141.25 Lab / Micro Data Attestation: I reviewed the patient's lab results. Result Diagrams: 11/04/22 04:50 11/04/22 08:27 Labs: Laboratory Results - last 24 hr 11/04/22 04:50: WBC 27.4 H, RBC 3.43 L, Hgb 9.3 L, Hct 29.3 L, MCV 85.4, MCH 27.1, MCHC 31.7 L, RDW Std Deviation 48.6 H, RDW Coeff of Min 15.4 H, Plt Count 362, MPV 9.8, Immature Gran % (Auto) 2.300 H, Neut % (Auto) 81.2 H, Lymph % (Auto) 5.6 L, [place] % (Auto) 4.6, Eos % (Auto) 5.9 H, Baso % (Auto) 0.4, Absolute Neuts (auto) 22.2 H, Absolute Lymphs (auto) 1.54, Nucleated RBC % 0, Anisocytosis 1+ Micro: Microbiology 11/03/22 07:40 Mucosa - Nasopharyngeal Respiratory Panel (PCR) - Final 11/02/22 09:15 Stool Stool Lactoferrin - Final 11/02/22 09:15 Stool Stool Occult Blood (AGNIESZKA) - Final Rhythm Strip Rhythm Strip: Sinus Rhythm Rate: 99 Ectopy: None Physical Exam Const alert and no apparent distress General Appearance: cooperative HEENT normocephalic and head/scalp atraumatic Eyes PERRL, EOMs intact bilaterally and conjunctivae normal Neck supple General: trachea midline Chest inspection of chest normal Resp normal respiratory effort Auscultation: diminished lung sounds; Negative for rales, rhonchi or wheezes Cardio regular rate and regular rhythm GI normal to inspection, nondistended, normoactive bowel sounds Extremity no clubbing, cyanosis or edema Skin no rashes or lesions noted Neuro oriented x3, CN's II-XII intact bilaterally and moves all extremities Psych cooperative and affect normal Charges/Coding Visit Charges Inpatient E&M: 25471 Subs Hosp L2
[2022-11-04] MEDS: Ipratropium 0.5 MG/2.5 ML SOLUTION INHALATION ×4 (07:22→19:09)
[2022-11-04] MEDS: Thiamine Hydrochloride 100 MG Tablet PO (08:02)
[2022-11-04] MEDS: Multivitamins,Therapeutic Tablet 1 TABLET PO (08:02)
[2022-11-04] MEDS: Folic Acid 1 MG Tablet PO (08:02)
[2022-11-04] MEDS: Smz/Tmp Ds Tablet 0.5 TABLET PO (08:04)
[2022-11-04] MEDS: LORazepam 1 MG Tablet 2 MG PO ×2 (08:13→11:05)
[2022-11-04] MEDS: ARIPiprazole 5 MG Tablet PO (08:19)
[2022-11-04] MEDS: guaiFENesin 1,200 MG Tablet 1200 MG PO (08:19)
[2022-11-04] MEDS: amLODIPine 2.5 MG Tablet PO (08:20)
[2022-11-04] MEDS: Cholecalciferol (VIT D3) 25 MCG TABLET (1,000 UNITS) 50 MCG PO (08:24)
[2022-11-04] MEDS: Pantoprazole Sodium 40 MG Tablet PO (08:25)
[2022-11-04 08:52] LABS: Anion Gap 7 (5-15); BUN 27 mg/dL (7-18); BUN/Creat Ratio 12.5 RATIO (10-20); Calcium,Total 8.8 mg/dL (8.5-10.1); Chloride 114 mmol/L (98-107); Creatinine, Serum 2.16 mg/dL (0.55-1.02); EST Glomerular Filtration Rate 25 mL/min (>60); Est Glom Filt Rate - Afr Amer 30 mL/min (>60); Glucose 129 mg/dL (74-106); Potassium 5.3 mmol/L (3.5-5.1); Sodium Level 137 mmol/L (136-145)
--- NOTE | 2022-11-04 10:20 | PN.HOSP_ITS ---
Subjective Subjective Patient seen and examined. She had no active complaints. She was sleepy but would wake up to voice call. She denied any fever, chills, cough, chest pain, palpitations, dizziness, nausea, vomiting and diarrhea. Review of systems is otherwise negative. She is still tachycardic and tachypneic. Objective Data Objective Data Vital Signs: Vital Signs Temp Pulse Resp BP Pulse Ox O2 Del Method O2 Flow Rate 98.8 F 116 H 31 H 169/95 H 94 Nasal Cannula 2.5 11/04/22 04:00 11/04/22 07:23 11/04/22 07:23 11/04/22 04:00 11/04/22 07:23 11/04/22 07:23 11/04/22 07: FiO2 30 11/03/22 22:24 Oxygen Flow Rate (L/min) 2.5 Oxygen Delivery Method Nasal Cannula Weight: 137 lb 9.095 oz Body Mass Index (BMI) 23.7 Intake & Output: Intake and Output for Last 24 Hours 11/02/22 11/03/22 11/04/22 23:59 23:59 23:59 Intake Total 7461.42 / 7461.42 2556.0 / 2556.0 1033.50 / 1033.50 Output Total 800 / 800 1000 / 1000 650 / 650 Balance 6661.42 / 6661.42 1556.0 / 1556.0 383.50 / 383.50 Lab / Micro Data Result Diagrams: 11/04/22 04:50 11/04/22 08:27 Labs: Laboratory Results - last 24 hr 11/04/22 04:50: WBC 27.4 H, RBC 3.43 L, Hgb 9.3 L, Hct 29.3 L, MCV 85.4, MCH 27.1, MCHC 31.7 L, RDW Std Deviation 48.6 H, RDW Coeff of Min 15.4 H, Plt Count 362, MPV 9.8, Immature Gran % (Auto) 2.300 H, Neut % (Auto) 81.2 H, Lymph % (Auto) 5.6 L, [place] % (Auto) 4.6, Eos % (Auto) 5.9 H, Baso % (Auto) 0.4, Absolute Neuts (auto) 22.2 H, Absolute Lymphs (auto) 1.54, Nucleated RBC % 0, Anisocytosis 1+ 11/04/22 08:27: Sodium 137, Potassium 5.3 H, Chloride 114 H, Carbon Dioxide 16.0 L, Anion Gap 7, BUN 27 H, Creatinine 2.16 H, Estim Creat Clear Calc 23.20, Est GFR (MDRD) Af Amer 30 L, Est GFR (MDRD) Non-Af 25 L, BUN/Creatinine Ratio 12.5, Glucose 129 H, Calcium 8.8 Micro: Microbiology 11/03/22 07:40 Mucosa - Nasopharyngeal Respiratory Panel (PCR) - Final 11/02/22 09:15 Stool Stool Lactoferrin - Final 11/02/22 09:15 Stool Stool Occult Blood (AGNIESZKA) - Final Rhythm Strip Rhythm Strip: Sinus Rhythm Rate: 99 Ectopy: None Physical Exam Const alert, oriented x3 and no apparent distress HEENT head/scalp atraumatic, moist oral mucous membranes and oropharynx normal Head and Scalp: normocephalic Mouth: oral and palatal mucosa normal Eyes PERRL, EOMs intact bilaterally and conjunctivae normal Neck no lymphadenopathy and supple Resp Resp Narrative: diminished breath sounds bibasally, no wheezes or crackles. on 2L of oxygen by nasal canula. Cardio regular rate, regular rhythm, S1 normal heart sound and S2 normal heart sound GI normal to inspection, nondistended, normoactive bowel sounds, soft to palpation, non-tender and non-distended Extremity normal to inspection, full ROM and no clubbing, cyanosis or edema Neuro oriented x3, CN's II-XII intact bilaterally and moves all extremities Sensorium / Orientation: awake and alert Motor Exam: strength 5/5 throughout Psych affect normal Assessment & Plan Assessment/Plan (1) Nausea & vomiting: (2) Diarrhea: PLAN: Plan #Acute renal injury due to volume depletion due to acute diarrhea * Cr on admission was 2.05; hydrate gently with iVF * Cr is trending up today to 2.16 * nephrology consulted, as kidney function is not improving. * urine urea and Cr ordered to asses FeUrea. * #Acute diarrhea * C diff ruled out * on immodium. * stool studies pending * diarrhea improving * #Community acquired pneumonia * was transferred emergently to ICU due to acute respiratory distress * CXR showed evidence of pneumonia * on Iv zosyn * critical care on board. * #sepsis * is tachypneic, tachycardic and wbc has trended upwards from 15 yesterday to 27 today. * end organ damage is the worsening kidney function * CXR did show evidence of pneumonia; she is on IV zosyn * in light of her persistent and worsenign tachycardia, tachypnea and worsening wbc, will get CT of the chest, abdomen and pelvis without contrast (due to CHUY) to evaluate for any occult infection * will order repeat blood cultures * #COPD: * breathing treatment with bronchodilators. * Titrate oxygen to maintain sats > 90% * not in exacerbation #Non anion gap metabolic acidosis due to diarrhea * bicarb today is 15 * nephrology consulted * anion gap is 7 * #Recent right orbital cellulitis * on bactrim, with end date of 11/04. * on erythromycin eye drops. * #Bipolar disorder and depression: on aripiprazole and buspar as well as remeron. #Chronic pancreatitis: on Creon. #Hypertension:on amlodipine DVT prophylaxis: lovenox Charges/Coding Visit Charges Inpatient E&M: 88251 Subs Hosp L3 Reason for Visit Reason for Visit: Diagnoses Chronic obstructive pulmonary disease, unspecified (11/01/22) Acute kidney failure, unspecified (11/01/22) Nausea with vomiting, unspecified (11/01/22) Diarrhea, unspecified (11/01/22)
--- NOTE | 2022-11-04 10:48 | CT_ITS ---
STUDY: CT CHEST, ABDOMEN T PELVIS WITHOUT CONTRAST REASON FOR EXAM: Female, 57 years old. History of pneumonia. RADIATION DOSAGE (If Supplied By Facility): CTDIvol = ( 7.66 ) mGy, DLP = ( 596.72 ) mGycm TECHNIQUE: Transaxial imaging was performed without the administration of intravenous contrast material. Individualized dose optimization techniques were used for this CT. COMPARISON: Comparison is made with prior study dated 08/22/2022 and prior chest radiograph dated 11/02/2022. FINDINGS: CHEST There are small benign-appearing bilateral axillary lymph nodes. Small left pleural effusion with infiltration and/or atelectasis at the left lung base. Minimal right pleural effusion and mild right basilar atelectasis. There are calcifications of the coronary arteries. There is calcification of the mitral valve annulus. There are multiple small lymph nodes within the mediastinum, which are normal in size and morphology most compatible with reactive lymph hyperplasia. Normal hilar regions. Normal unenhanced pulmonary arteries. There is atherosclerotic calcification of the aortic arch with tortuosity and elongation of the aortic arch and descending thoracic aorta. There are multi-level degenerative changes of the thoracic spine. ABDOMEN Normal liver. The patient is status post cholecystectomy. Normal spleen. Punctate calcifications are seen in the region of the head and uncinate process of the pancreas suggestive of a chronic pancreatitis. Normal bilateral adrenal glands. Normal right kidney. Normal left kidney. Normal visualized stomach. Normal small intestine. Normal colon. The appendix is visualized and appears normal. There is diffuse atherosclerotic calcification of the abdominal aorta and its major visceral branches, without a demonstrated aneurysm. Normal inferior vena cava. Normal retroperitoneum. Normal abdominal wall. There are diffuse degenerative changes of the visualized lumbar spine. PELVIS A FALK catheter seen within a nondistended urinary bladder. A CHRIS level seen along the anterior aspect of the bladder most likely secondary to the placement of the FALK catheter. Normal visualized small intestine. There are multiple colonic diverticula of the sigmoid colon consistent with chronic diverticulosis. Small amount of fluid in the cul-de-sac. There is no pelvic lymphadenopathy or mass lesion. There is diffuse atherosclerotic calcification of the pelvic arteries. CT/CT Chest, Abd, Pelvis WO Cont IMPRESSION: Small left pleural effusion or left basilar infiltration and/or atelectasis. Minimal right pleural effusion and mild right basilar atelectasis. Since prior study, the patient underwent a cholecystectomy. Multiple punctate calcifications are seen in the region of the head and uncinate processes of the pancreas in keeping with prior pancreatitis. Electronically Signed: Zaid Justice MD at 13:01 EST ,
--- NOTE | 2022-11-04 11:39 | PCM.CONS.R ---
Assessment & Plan Assessment/Plan (1) Acute kidney injury: PLAN: Acute renal failure. Prior to admission at [facility], at the time of admission at [facility] creatinine was normal. She was subsequently transferred to [facility]. Discharge creatinine was 1.5. Urine analysis over there was fairly benign. She did receive vancomycin and Zosyn. I see a vancomycin trough of 17. Possible she might have sustained ATN. She is admitted here with a creatinine of 2.0. She was started on Bactrim since she had significant diarrhea from Augmentin. Currently has a Frankel catheter, obstructive disease unlikely. We will check repeat urine analysis. Most likely this increase in creatinine is related to Bactrim. Discussed with primary attending. Today is the last dose of Bactrim. Hyperkalemia. Again could be mediated by Bactrim. She is also somewhat acidotic. Add oral bicarbonate. I will hold IV fluids due to her significant respiratory distress. She is getting a CT chest and abdomen in view of respiratory distress and worsening leukocytosis. If there is no pulmonary edema on CT chest, we may consider resuming IV fluids. She did have significant diarrhea prior to admission to the hospital. HPI Consult Data Date of Consult: 11/04/22 HPI Narrative Reason for Consultation: Acute renal failure HPI Narrative: MIR KANG, is a 57 F who presents to the hospital with severe diarrhea. Nephrology on consultation for acute renal failure. No prior kidney disease. Baseline creatinine was normal. She was initially admitted to [facility] followed by [facility]. Admission diagnosis was orbital cellulitis. Was seen by ophthalmology at [facility] as well. Admission creatinine was normal. Discharge creatinine was around 1.4-1.5. She did receive vancomycin and Zosyn, was discharged on Augmentin. Apparently had severe diarrhea from Augmentin hence this was switched to Bactrim. Overall orbital cellulitis has improved. anca panel negative. Currently has a Frankel catheter. Urine output is present. In somewhat significant respiratory distress today. WBC count has increased significantly. Getting a CT chest abdomen. [facility] Medical History Abdominal pain Alcohol abuse Alcoholic hepatitis Anemia Anxiety and depression Arthritis Asthma Benign hypertension Chronic pancreatitis COPD (chronic obstructive pulmonary disease) Diarrhea GERD (gastroesophageal reflux disease) History of back problems HPV (human papilloma virus) infection Nicotine dependence, cigarettes, uncomplicated Tobacco abuse Unintentional weight loss Home Medications cholecalciferol (vitamin D3) 50 mcg (2,000 unit) capsule 50 mcg PO DAILY SUPPLEMENT 12/29/18 [History Last Taken 10/31/22] pantoprazole 40 mg tablet,delayed release 40 mg PO DAILY GERD 08/12/20 [History Last Taken 10/31/22] albuterol sulfate 90 mcg/actuation aerosol inhaler (Ventolin HFA) 2 puff inhalation Q4H PRN shortness of breath or wheezing #18 grams 11/14/20 [Rx Last Taken Unknown] aripiprazole 5 mg tablet (Abilify) 5 mg PO DAILY mood 01/22/21 [History Last Taken 10/31/22] hydroxyzine pamoate 25 mg capsule 25 mg PO Q6H PRN PRN Itching 06/12/21 [History Last Taken 10/31/22] mirtazapine 45 mg tablet 45 mg PO QHS sleep 01/16/22 [History Last Taken 10/31/22] amlodipine 2.5 mg tablet 2.5 mg PO DAILY BP 11/01/22 [History Last Taken Unknown] erythromycin 5 mg/gram (0.5 %) eye ointment 0.5 inch RIGHT EYE Q6H antibiotic 11/01/22 [History Last Taken Unknown] pukwqy-kullphft-odztgoo 24,000-76,000-120,000 unit capsule,delayed rel (Creon) 1 cap PO TIDCM Check with primary doctor 11/01/22 [History Last Taken 10/31/22] loperamide 2 mg capsule 2 mg PO Q4H PRN PRN Diarrhea 11/01/22 [History Last Taken Unknown] polyvinyl alcohol 1.4 % eye drops 2 drp ophthalmic (eye) Q6H eye infection 11/01/22 [History Last Taken 11/01/22] simvastatin 20 mg tablet 20 mg PO QHS cholesterol 11/01/22 [History Last Taken 10/31/22] sulfamethoxazole 800 mg-trimethoprim 160 mg tablet 1 tab PO BID antibiotic 11/01/22 [History Last Taken 11/01/22] Allergy/AdvReac Type Severity Reaction Status Date / Time Penicillins Allergy Hives Verified 11/01/22 19:37 hydrocodone [From [facility]] AdvReac Itching Verified 11/01/22 19:37 Family History Mother Diabetes Hypertension Heart disease High cholesterol Arthritis Thyroid disorder Brother Hypertension Sister Cancer cervical Thyroid disorder Father Kidney disease Daughter Thyroid disorder Surgical History History of appendectomy History of colonoscopy History of tubal ligation Social History Smoking Status: Former smoker quit date: 02/20/18 pack-years: 75 Tobacco: How many years used: 30 second hand exposure: Yes alcohol intake: current alcohol intake frequency: 3 or more drinks per day Alcohol type: beer substance use type: does not use caffeine: Yes ROS ROS Narrative Positive for dyspnea negative otherwise. Physical Exam Narrative Alert awake oriented x 3 respiratory distress no pallor no icterus no JVD s1s2 no murmurs lungs clear abdomen soft no organomegaly no edema no cyanosis frankel + Lab / Micro Data Result Diagrams: 11/04/22 04:50 11/04/22 08:27 Labs: Laboratory Results - last 24 hr 11/04/22 04:50: WBC 27.4 H, RBC 3.43 L, Hgb 9.3 L, Hct 29.3 L, MCV 85.4, MCH 27.1, MCHC 31.7 L, RDW Std Deviation 48.6 H, RDW Coeff of Min 15.4 H, Plt Count 362, MPV 9.8, Immature Gran % (Auto) 2.300 H, Neut % (Auto) 81.2 H, Lymph % (Auto) 5.6 L, [place] % (Auto) 4.6, Eos % (Auto) 5.9 H, Baso % (Auto) 0.4, Absolute Neuts (auto) 22.2 H, Absolute Lymphs (auto) 1.54, Nucleated RBC % 0, Anisocytosis 1+ 11/04/22 08:27: Sodium 137, Potassium 5.3 H, Chloride 114 H, Carbon Dioxide 16.0 L, Anion Gap 7, BUN 27 H, Creatinine 2.16 H, Estim Creat Clear Calc 23.20, Est GFR (MDRD) Af Amer 30 L, Est GFR (MDRD) Non-Af 25 L, BUN/Creatinine Ratio 12.5, Glucose 129 H, Calcium 8.8 Micro: Microbiology 11/03/22 07:40 Mucosa - Nasopharyngeal Respiratory Panel (PCR) - Final Rhythm Strip Rhythm Strip: Sinus Rhythm Rate: 99 Ectopy: None
[2022-11-04] MEDS: Sodium Polystyrene Sulfonate 15 GM/60 ML UDC 30 GM PO (13:08)
[2022-11-04] MEDS: Erythromycin Base 1 OPTH.TUBE 1 APPLIC RIGHT EYE ×3 (13:12→23:33)
[2022-11-04] MEDS: Sodium Bicarbonate 650 MG Tablet 1300 MG PO (13:16)
[2022-11-04] MEDS: 0.9% Saline Lock 10 ML Syringe IV ×2 (13:24→19:51)
[2022-11-04 15:55] LABS: Allen Test Positive; Base Excess -12 mmol/L (-2 to +2); Bicarbonate 16.9 mmol/L (22-26); Blood Gas Specimen Type ART; FI02 30; O2 Delivery Device BiPAP; PO2 83 mmHG (75-100); RR 12; SITE R Radial; SO2 93 % (95-99); Total Carbon Dioxide 18 mmol/L; pCO2 47.2 mmHg (35-45); pH 7.16 (7.35-7.45)
[2022-11-04 16:03] LABS: Urea Nitrogen, Urine 302 mg/dL (NO RANGE EST.)
--- NOTE | 2022-11-04 16:05 | RAD_ITS ---
INDICATION: resp distress EXAMINATION/TECHNIQUE: X-RAY - XR Chest 1 View COMPARISON: 11/02/2022, CT chest 11:31 AM.. FINDINGS: LINES/DEVICES: None. LUNGS: No pleural effusion, vascular congestion or pulmonary consolidation. Mild interstitial prominence in the lung bases. MEDIASTINUM AND CARDIOVASCULAR STRUCTURES: Cardiac silhouette not enlarged. Central airways and mediastinal contour are unremarkable. BONES AND SOFT TISSUES: Unremarkable. RAD/Chest 1 View (Portable) IMPRESSION: Mild interstitial prominence, no change from recent studies. Electronically Signed: Maribeth Andino MD at 17:01 EST Reading Location ID and State: [id number] / Tel , Service support ,
[2022-11-04 16:20] LABS: Mucous, Urine 0 SEEN /hpf (<or=2+); Squamous Epithelial Cells - UA 0 SEEN /hpf (5-10)
[2022-11-04 16:28] LABS: Color, Urine Yellow (Yellow); Glucose, Dipstick 50 mg/dl (Normal); Ketone-Dipstick Negative (Negative); Leukocyte Esterase-Dipstick Negative /ul (Negative); Nitrite-Dipstick Negative (Negative); Occult Blood-Urine 150 /ul (Negative); Protein-Dipstick 30 mg/dl (Negative); Specific Gravity, Urine 1.015 (1.002-1.030); Urine Bilirubin Dipstick Negative (Negative); Urine Clarity Clear (Clear); Urine Urobilinogen Normal (Normal)
[2022-11-04 16:33] LABS: Lactic Acid 1.4 mmol/L (0.4-1.9)
[2022-11-04 16:50] LABS: Bacteria RARE /hpf (None Seen); Red Blood Cells-Urine 10-25 SEEN /hpf (0-5); White Blood Cells 0-5 SEEN /hpf (0-5)
[2022-11-04] MEDS: Acetaminophen 650 MG Suppository RC (19:01)
[2022-11-04 19:51] LABS: International Normalized Ratio 1.2; Partial Thromboplast Time 27.3 Seconds (24.1-36.2); Prothrombin Time (Protime)PT. 14.6 SECONDS (11.7-14.9)
[2022-11-04] MEDS: HEPARIN/D5w 25,000 UNITS 25,000 UNITS/250 ML IV.SOLN. 10 UNITS CONT INF (19:53)
[2022-11-04 21:09] LABS: Anion Gap 6 (5-15); BUN 27 mg/dL (7-18); BUN/Creat Ratio 14.1 RATIO (10-20); Calcium,Total 8.9 mg/dL (8.5-10.1); Chloride 113 mmol/L (98-107); Creatinine, Serum 1.91 mg/dL (0.55-1.02); EST Glomerular Filtration Rate 29 mL/min (>60); Est Glom Filt Rate - Afr Amer 35 mL/min (>60); Estimated Creatinine Clearance 26.23 ml/min; Glucose 97 mg/dL (74-106); Potassium 5.4 mmol/L (3.5-5.1); Sodium Level 138 mmol/L (136-145)
--- NOTE | 2022-11-04 21:20 | PCM.RX.CS ---
Consult Pharmacy has been consulted to manage selected antiobiotic: Vancomycin Type of Consult: New start Suspected Infection: Pneumonia Labs: Sodium 138 mmol/L (136-145) 11/04/22 20:33 Potassium 5.4 mmol/L (3.5-5.1) H 11/04/22 20:33 Chloride 113 mmol/L (98-107) H 11/04/22 20:33 Carbon Dioxide 19.0 mmol/L (21.0-32.0) L 11/04/22 20:33 Anion Gap 6 (5-15) 11/04/22 20:33 BUN 27 mg/dL (7-18) H 11/04/22 20:33 Creatinine 1.91 mg/dL (0.55-1.02) H 11/04/22 20:33 Est GFR (MDRD) Af Amer 35 mL/min (>60) L 11/04/22 20:33 Est GFR (MDRD) Non-Af 29 mL/min (>60) L 11/04/22 20:33 BUN/Creatinine Ratio 14.1 RATIO (10-20) 11/04/22 20:33 Glucose 97 mg/dL (74-106) 11/04/22 20:33 Microbiology: Microbiology 11/04/22 12:31 Blood Culture (Wb) - Right Hand Blood Culture - Preliminary 11/04/22 12:08 Blood Culture (Wb) - Left Hand Blood Culture - Preliminary 11/03/22 07:40 Mucosa - Nasopharyngeal Respiratory Panel (PCR) - Final 11/02/22 09:15 Stool Stool Lactoferrin - Final 11/02/22 09:15 Stool Stool Occult Blood (AGNIESZKA) - Final Goal Trough: 15-20 mcg/mL Pharmacy Plan for Drug Dosing: NEW START IV VANCOMYCIN Consulting Physician: Chad Indication: Pneumonia Goal Trough: 15-20 SrCr: 2.16 (increased from 2.01 on 11/03/22) CrCl: Comments: pt received a 25mg/kg loading dose on 11/04/22 at 1951 Vancomycin Dose: due to pts increasing SrCr, recommend checking a random level 12 hours after initial dose. That will also give time for the am lab draws to result and check renal function on 11/05/22 Pending Level: 11/05/22 at 0800 due to renal function Pharmacy Service will continue to monitor and adjust dosing as required. Follow-Up Labs: Trough Vancomycin - 11/05/22 at 0800
[2022-11-05] VITALS (28 sets, daily range): BP systolic 95–126; BP diastolic 55–104; PULSE 84–120; RESP 12–46; TEMP 36.7–37.3; O2SAT 88–100
[2022-11-05 02:01] LABS: Partial Thromboplast Time 83.8 Seconds (24.1-36.2)
[2022-11-05] MEDS: Ipratropium 0.5 MG/2.5 ML SOLUTION INHALATION ×5 (02:02→19:33)
[2022-11-05 02:25] LABS: Base Excess -10 mmol/L (-2 to +2); Bicarbonate 17.6 mmol/L (22-26); Blood Gas Specimen Type ART; O2 Delivery Device Cannula; PO2 107 mmHG (75-100); SITE L Radial; SO2 97 % (95-99); Total Carbon Dioxide 19 mmol/L; pCO2 44.1 mmHg (35-45); pH 7.21 (7.35-7.45)
[2022-11-05 04:00] LABS: Absolute Lymphocyte Count 1.08 X10^3/uL (0.83-4.51); Absolute Neutrophil Count 19.3 X10^3/uL (2.0-7.7); Basophil% 0.4 % (0-1); Eosinophil# 0.13 X10^3/uL; Eosinophils% 0.6 % (0-5); Hematocrit 29.3 % (37-47); Hemoglobin 9.4 g/dL (12.0-15.0); Lymphocyte # 1.08 X10^3/ul (0.83-4.51); Lymphocyte % 4.8 % (19-41); Mean Corp Hgb Conc 32.1 g/dL (32-36); Mean Corpuscular Hgb 27.8 pg (27.0-32.0); Mean Corpuscular Volume 86.7 fL (81-99); Mean Platelet Vol. 9.8 fl (6.2-12.0); Monocyte% 4.4 % (0-10); NRBC Flagged by Analyzer 0 % (0-5); Neutrophil # 19.29 X10^3/uL (2.7-7.7); Neutrophil % 85.4 % (47-70); Platelet Count 354 K/mm3 (150-450); RBC Distribution Width CV 15.9 % (11.6-14.6); RBC Distribution Width SD 50.5 fl (35.1-43.9); Red Blood Count 3.38 M/mm3 (4.2-5.4); White Blood Count 22.6 K/mm3 (4.4-11.0)
[2022-11-05 04:18] LABS: Anion Gap 7 (5-15); BUN 28 mg/dL (7-18); BUN/Creat Ratio 15.2 RATIO (10-20); Calcium,Total 9.1 mg/dL (8.5-10.1); Chloride 114 mmol/L (98-107); Creatinine, Serum 1.84 mg/dL (0.55-1.02); EST Glomerular Filtration Rate 30 mL/min (>60); Est Glom Filt Rate - Afr Amer 36 mL/min (>60); Estimated Creatinine Clearance 27.23 ml/min; Glucose 139 mg/dL (74-106); Potassium 5.4 mmol/L (3.5-5.1); Sodium Level 140 mmol/L (136-145)
[2022-11-05] MEDS: Erythromycin Base 1 OPTH.TUBE 1 APPLIC RIGHT EYE ×4 (04:48→23:27)
[2022-11-05] MEDS: 0.9% Saline Lock 10 ML Syringe IV ×2 (04:49→11:20)
--- NOTE | 2022-11-05 05:51 | PN.CC_ITS ---
Assessment & Plan Assessment/Plan (1) Stage 3 severe COPD by GOLD classification: PLAN: Plan RECOMMENDATIONS: 1. Attempt to wean from BiPAP to nasal cannula supplemental oxygen. 2. Continue bronchodilators. 3. Continue heparin infusion for now. Obtain lower extremity Doppler studies. 4. Continue empiric antimicrobials, pending culture results. 5. Hold all sedating medications for now. 6. Decrease methylprednisone to once daily. 7. Continue sodium bicarbonate repletion per nephrology. IMPRESSIONS: 1. Acute on chronic hypoxemic respiratory failure The patient was transferred to the medical intensive care unit after becoming increasingly hypoxic with increased work of breathing, likely precipitated by an acute panic attack/generalized anxiety disorder. The patient has known obstructive lung disease and is already on triple therapy inhaler regimen on an outpatient basis. She does have a baseline 2 L/min oxygen requirement. The patient can be weaned from BiPAP therapy at this time and transition back to nasal cannula supplemental oxygen. Empiric antimicrobials will be continued, pending culture results. 2. Encephalopathy Clinical concern for metabolic etiology versus polypharmacy effects. The patient seems to be more alert and cooperative this morning. Plan to hold all sedating medications for now. 3. Diarrheal illness Unclear etiology. Defer further work-up and management to hospitalist. 4. Acute kidney injury Likely secondary to intravascular volume depletion/prerenal etiology in the setting of diarrhea. Continue to monitor urine output. No current indication for renal replacement therapy. Nephrology is following to assist with medical management. 5. Recent hospitalization for periorbital cellulitis/bipolar disorder/depression/anxiety/chronic pancreatitis Complicates care, management, recovery and prognosis. Continue home medications as indicated. This note was generated with [employer] dictation software. It may contain incorrect words, spelling, and punctuation that were not noted in checking the note before signing. Subjective Subjective The patient was seen and examined at the bedside this morning. Events from the last 24 hours have been reviewed. The patient is currently afebrile, hemo dynamically stable and maintaining appropriate oxygen saturations on BiPAP with an FiO2 requirement of 30%. Yesterday afternoon into early evening, the patient became increasingly confused and disoriented. Her oxygen requirement increased and she became increasingly tachypneic. Due to her confusion, she had a great deal of difficulty in tolerating BiPAP utilization. Her white count remains cass vated at 22,000 this morning. She was started yesterday empirically on a heparin infusion to cover for potential PE, given the inability to obtain a contrasted chest CT due to underlying renal insufficiency. Her creatinine is relatively stable this morning at 1.84 with a potassium of 5.4 and bicarbonate of 19. She is currently documented to be overall net +9.2 L for the hospitalization. I did call and personally speak with the patient's sister, Domonique, this morning to clarify the patient's drinking status. The patient's sister reported that she was previously a heavy drinker, but more recently has only been drinking on average 2-3 beers per week. Objective Data Objective Data The patient's most recent lab work, culture data and imaging studies have all been personally reviewed. Infectious work-up has been unrevealing to date. Vital Signs: Vital Signs Temp Pulse Resp BP Pulse Ox O2 Del Method O2 Flow Rate 98.3 F 106 H 34 H 98/78 97 Nasal Cannula 3 11/05/22 05:00 11/05/22 05:46 11/05/22 05:46 11/05/22 05:00 11/05/22 05:46 11/05/22 05:00 11/05/22 05:00 FiO2 30 11/05/22 05:46 Oxygen Flow Rate (L/min) 3 Oxygen Delivery Method Nasal Cannula Weight: 136 lb 14.513 oz Body Mass Index (BMI) 23.7 Intake & Output: Intake and Output for Last 24 Hours 11/03/22 11/04/22 11/05/22 23:59 23:59 23:59 Intake Total 2556.0 / 2556.0 2337.25 / 2337.25 112 / 112 Output Total 1000 / 1000 1900 / 1900 550 / 550 Balance 1556.0 / 1556.0 437.25 / 437.25 -438 / -438 Lab / Micro Data Attestation: I reviewed the patient's lab results. Result Diagrams: 11/05/22 03:52 11/05/22 03:52 Labs: Laboratory Results - last 24 hr 11/04/22 08:27: Sodium 137, Potassium 5.3 H, Chloride 114 H, Carbon Dioxide 16.0 L, Anion Gap 7, BUN 27 H, Creatinine 2.16 H, Estim Creat Clear Calc 23.20, Est G FR (MDRD) Af Amer 30 L, Est GFR (MDRD) Non-Af 25 L, BUN/Creatinine Ratio 12.5, Glucose 129 H, Calcium 8.8 11/04/22 15:40: Lactic Acid 1.4 11/04/22 15:40: Urine Creatinine 33.40, Urine Urea Nitrogen 302 11/04/22 15:40: Urine Color Yellow, Urine Clarity Clear, Urine pH 6.0, Ur Specific [place] 1.015, Urine Protein 30 H, Urine Glucose (UA) 50 H, Urine Ketones Negative, Urine Occult Blood 150 H, Urine Nitrite Negative, Urine Bilirubin Negative, Urine Urobilinogen Normal, Ur Leukocyte Esterase Negative, U rine RBC 10-25 SEEN, Urine WBC 0-5 SEEN, Ur Squamous Epith Cells 0 SEEN, Urine Bacteria RARE, Urine Mucus 0 SEEN 11/04/22 19:00: PT Cancelled, INR Cancelled, APTT Cancelled 11/04/22 19:35: PT 14.6, INR 1.2, APTT 27.3 11/04/22 20:33: Sodium 138, Potassium 5.4 H, Chloride 113 H, Carbon Dioxide 19.0 L, Anion Gap 6, BUN 27 H, Creatinine 1.91 H, Estim Creat Clear Calc 26.23, Est GFR (MDRD) Af Amer 35 L, Est GFR (MDRD) Non-Af 29 L, BUN/Creatinine Ratio 14.1, Glucose 97, Calcium 8.9 11/05/22 01:40: APTT 83.8 H 11/05/22 03:52: WBC 22.6 H, RBC 3.38 L, Hgb 9.4 L, Hct 29.3 L, MCV 86.7, MCH 27.8, MCHC 32.1, RDW Std Deviation 50.5 H, RDW Coeff of Min 15.9 H, Plt Count 354, MPV 9.8, Immature Gran % (Auto) 4.400 H, Neut % (Auto) 85.4 H, Lymph % (Auto) 4.8 L, [place] % (Auto) 4.4, Eos % (Auto) 0.6, Baso % (Auto) 0.4, Absolute Neuts (auto) 19.3 H, Absolute Lymphs (auto) 1.08, Nucleated RBC % 0 11/05/22 03:52: Sodium 140, Potassium 5.4 H, Chloride 114 H, Carbon Dioxide 19.0 L, Anion Gap 7, BUN 28 H, Creatinine 1.84 H, Estim Creat Clear Calc 27.23, Est GFR (MDRD) Af Amer 36 L, Est GFR (MDRD) Non-Af 30 L, BUN/Creatinine Ratio 15.2, Glucose 139 H, Calcium 9.1 Micro: Microbiology 11/04/22 12:31 Blood Culture (Wb) - Right Hand Blood Culture - Preliminary 11/04/22 12:08 Blood Culture (Wb) - Left Hand Blood Culture - Preliminary 11/03/22 07:40 Mucosa - Nasopharyngeal Respiratory Panel (PCR) - Final 11/02/22 09:15 Stool Stool Lactoferrin - Final 11/02/22 09:15 Stool Stool Occult Blood (AGNIESZKA) - Final ABG Data ABG results: ABG 11/04/22 11/05/22 15:47 02:18 Specimen Type ART ART Sample Site R Radial L Radial pH 7.16 L* 7.21 L Bicarbonate Actual 16.9 L 17.6 L Total CO2 18 19 Base Excess -12 L -10 L O2 Saturation 93 L 97 O2 % 30 ABG pCO2 47.2 H 44.1 ABG pO2 83 107 H Alexis Test Positive N/A Respiration Rate 12 O2 Delivery Device BiPAP Cannula Liter Flow 3.0 Crit Call To/Read Back Yes Yes Blood Gas Notified Whom dr ernesto Sebastian Radiography Diagnostic Testing: Radiology Impression Chest/Abdomen/Pelvis CT 11/04/22 10:48 IMPRESSION: Small left pleural effusion or left basilar infiltration and/or atelectasis. Minimal right pleural effusion and mild right basilar atelectasis. Since prior study, the patient underwent a cholecystectomy. Multiple punctate calcifications are seen in the region of the head and uncinate processes of the pancreas in keeping with prior pancreatitis. Electronically Signed: Zaid Justice MD at 13:01 EST , Chest X-Ray 11/04/22 16:05 IMPRESSION: Mild interstitial prominence, no change from recent studies. Electronically Signed: Maribeth Andino MD at 17:01 EST Reading Location ID and State: [id number] / Tel , Service support , Rhythm Strip Rhythm Strip: Sinus Rhythm Rate: 99 Ectopy: None Physical Exam Const alert and no apparent distress General Appearance: on BiPAP Orientation / Consciousness: confused and disoriented HEENT normocephalic and head/scalp atraumatic Eyes PERRL, EOMs intact bilaterally and conjunctivae normal Neck supple General: trachea midline Chest inspection of chest normal Resp Effort and Inspection: tachypneic Auscultation: wheezes and diminished lung sounds Cardio S1 normal heart sound and S2 normal heart sound Rate: tachycardic GI normal to inspection, nondistended, normoactive bowel sounds Extremity no clubbing, cyanosis or edema Skin no rashes or lesions noted Neuro moves all extremities and no focal motor deficits Psych Activity / Motor Behavior: restless Charges/Coding Visit Charges Inpatient E&M: 84528 Subs Hosp L3
--- NOTE | 2022-11-05 08:33 | VDLE_ITS ---
Reason For Study: Shortness of Breath RIGHT LEFT GSV is normal. GSV is normal. CFV is compressible, spontaneous, competent CFV is compressible, spontaneous, competent, and demonstrates pulsatile venous flow. and demonstrates pulsatile venous flow. FV is compressible, spontaneous, competent FV is compressible, spontaneous, competent and demonstrates pulsatile venous flow. and demonstrates pulsatile venous flow. POP V is compressible, spontaneous, competent POP V is compressible, spontaneous, competent and demonstrates pulsatile venous flow. and demonstrates pulsatile venous flow. T/P Trunk is compressible. T/P Trunk is compressible. PTV is compressible. PTV is compressible. RT PerV is compressible. LT PerV is compressible. Procedure This is a venous duplex using B-mode, color flow and spectral Doppler. Exam performed portable in ICU/CCU. The exam was diagnostic. A preliminary report was called and/or faxed to ICU military science instructorSARWAT Pierre. VL/Venous Duplex US - Kumar Extrem Interpretation Summary No evidence for acute deep venous thrombosis bilateral lower extremities with p atent and compressible bilateral great saphenous veins. Pulsatile venous flow was noted b ilaterally consistent with proximal venous hypertension or obstruction. Clinical correlation would be appropriate. Ordering Physician: Gonzalo Sebastian Referring Physician: Heather Easton Performed By: Som Mcneil RVT
[2022-11-05 08:50] LABS: Lipase 112 U/L (73-393)
[2022-11-05 09:21] LABS: Vancomycin, Random Level 18.2 ug/mL (0.0-15.0)
[2022-11-05 09:36] LABS: Partial Thromboplast Time 68.4 Seconds (24.1-36.2)
--- NOTE | 2022-11-05 09:41 | PCM.RX.CS ---
Consult Pharmacy has been consulted to manage selected antiobiotic: Vancomycin Type of Consult: Follow-up Suspected Infection: Pneumonia Prior Doses of Antibiotics Received/Current Regimen: Received 1500mg iv x 1 on 11.04.22 @1950. Labs: Sodium 140 mmol/L (136-145) 11/05/22 03:52 Potassium 5.4 mmol/L (3.5-5.1) H 11/05/22 03:52 Chloride 114 mmol/L (98-107) H 11/05/22 03:52 Carbon Dioxide 19.0 mmol/L (21.0-32.0) L 11/05/22 03:52 Anion Gap 7 (5-15) 11/05/22 03:52 BUN 28 mg/dL (7-18) H 11/05/22 03:52 Creatinine 1.84 mg/dL (0.55-1.02) H 11/05/22 03:52 Est GFR (MDRD) Af Amer 36 mL/min (>60) L 11/05/22 03:52 Est GFR (MDRD) Non-Af 30 mL/min (>60) L 11/05/22 03:52 BUN/Creatinine Ratio 15.2 RATIO (10-20) 11/05/22 03:52 Glucose 139 mg/dL (74-106) H 11/05/22 03:52 Random Vancomycin 18.2 ug/mL (0.0-15.0) H 11/05/22 08:30 Microbiology: Microbiology 11/04/22 12:31 Blood Culture (Wb) - Right Hand Blood Culture - Preliminary 11/04/22 12:08 Blood Culture (Wb) - Left Hand Blood Culture - Preliminary 11/03/22 07:40 Mucosa - Nasopharyngeal Respiratory Panel (PCR) - Final 11/02/22 09:15 Stool Stool Lactoferrin - Final 11/02/22 09:15 Stool Stool Occult Blood (AGNIESZKA) - Final Weight used for dosin.1 kg Estimated Creatinine Clearance: 27 ml/min Goal Trough: 15-20 mcg/mL Pharmacy Plan for Drug Dosing: Random level this AM ~12.5 post dose was 18.2 and within goal range of 15-20 mcg/ml. Renal improved from Cr 2.16 to 1.84. Will begin scheduled dosing of 750mg IV per protocol with trough level ordered for before 3rd dose. Pharmacy Service will continue to monitor and adjust dosing as required. Follow-Up Labs: Trough Vancomycin - 2.10.23 @1330 before 1400 dose
[2022-11-05 09:56] LABS: Calprotectin, Stool 118 ug/g (0-120)
--- NOTE | 2022-11-05 10:37 | PCM.PN.REN ---
Subjective Subjective No new complaints. Breathing looks somewhat better. Urine output is okay. Overnight she was started on heparin drip due to suspicion of PE. CT chest and abdomen without contrast without any significant findings. Objective Data Objective Data Vital Signs: Vital Signs Temp Pulse Resp BP Pulse Ox O2 Del Method O2 Flow Rate 98.5 F 96 35 H 108/84 H 99 Bi-pap 3 11/05/22 07:00 11/05/22 07:21 11/05/22 07:21 11/05/22 07:00 11/05/22 07:21 11/05/22 08:00 11/05/22 05:00 FiO2 30 11/05/22 07:21 Oxygen Flow Rate (L/min) 3 Oxygen Delivery Method Bi-pap Weight: 62.1 kg Body Mass Index (BMI) 23.7 Intake & Output: Intake and Output for Last 24 Hours 11/03/22 11/04/22 11/05/22 23:59 23:59 23:59 Intake Total 2556.0 / 2556.0 2337.25 / 2337.25 162 / 162 Output Total 1000 / 1000 1900 / 1900 550 / 550 Balance 1556.0 / 1556.0 437.25 / 437.25 -388 / -388 Lab / Micro Data Result Diagrams: 11/05/22 03:52 11/05/22 03:52 Labs: Laboratory Results - last 24 hr 11/02/22 09:15: Stool pH 6.0 L, Stool Calprotectin 118 11/04/22 15:40: Lactic Acid 1.4 11/04/22 15:40: Urine Creatinine 33.40, Urine Urea Nitrogen 302 11/04/22 15:40: Urine Color Yellow, Urine Clarity Clear, Urine pH 6.0, Ur Specific [place] 1.015, Urine Protein 30 H, Urine Glucose (UA) 50 H, Urine Ketones Negative, Urine Occult Blood 150 H, Urine Nitrite Negative, Urine Bilirubin Negative, Urine Urobilinogen Normal, Ur Leukocyte Esterase Negative, Urine RBC 10-25 SEEN, Urine WBC 0-5 SEEN, Ur Squamous Epith Cells 0 SEEN, Urine Bacteria RARE, Urine Mucus 0 SEEN 11/04/22 19:00: PT Cancelled, INR Cancelled, APTT Cancelled 11/04/22 19:35: PT 14.6, INR 1.2, APTT 27.3 11/04/22 20:33: Sodium 138, Potassium 5.4 H, Chloride 113 H, Carbon Dioxide 19.0 L, Anion Gap 6, BUN 27 H, Creatinine 1.91 H, Estim Creat Clear Calc 26.23, Est GFR (MDRD) Af Amer 35 L, Est GFR (MDRD) Non-Af 29 L, BUN/Creatinine Ratio 14.1, Glucose 97, Calcium 8.9 11/05/22 01:40: APTT 83.8 H 11/05/22 03:52: WBC 22.6 H, RBC 3.38 L, Hgb 9.4 L, Hct 29.3 L, MCV 86.7, MCH 27.8, MCHC 32.1, RDW Std Deviation 50.5 H, RDW Coeff of Min 15.9 H, Plt Count 354, MPV 9.8, Immature Gran % (Auto) 4.400 H, Neut % (Auto) 85.4 H, Lymph % (Auto) 4.8 L, [place] % (Auto) 4.4, Eos % (Auto) 0.6, Baso % (Auto) 0.4, Absolute Neuts (auto) 19.3 H, Absolute Lymphs (auto) 1.08, Nucleated RBC % 0 11/05/22 03:52: Sodium 140, Potassium 5.4 H, Chloride 114 H, Carbon Dioxide 19.0 L, Anion Gap 7, BUN 28 H, Creatinine 1.84 H, Estim Creat Clear Calc 27.23, Est GFR (MDRD) Af Amer 36 L, Est GFR (MDRD) Non-Af 30 L, BUN/Creatinine Ratio 15.2, Glucose 139 H, Calcium 9.1 11/05/22 03:52: Lipase 112 11/05/22 08:30: Random Vancomycin 18.2 H 11/05/22 08:30: APTT Cancelled 11/05/22 09:15: APTT 68.4 H Micro: Microbiology 11/04/22 12:31 Blood Culture (Wb) - Right Hand Blood Culture - Preliminary 11/04/22 12:08 Blood Culture (Wb) - Left Hand Blood Culture - Preliminary 11/03/22 07:40 Mucosa - Nasopharyngeal Respiratory Panel (PCR) - Final 11/02/22 09:15 Stool Stool Lactoferrin - Final 11/02/22 09:15 Stool Stool Occult Blood (AGNIESZKA) - Final ABG Data ABG results: ABG 11/04/22 11/05/22 15:47 02:18 Specimen Type ART ART Sample Site R Radial L Radial pH 7.16 L* 7.21 L Bicarbonate Actual 16.9 L 17.6 L Total CO2 18 19 Base Excess -12 L -10 L O2 Saturation 93 L 97 O2 % 30 ABG pCO2 47.2 H 44.1 ABG pO2 83 107 H Alexis Test Positive N/A Respiration Rate 12 O2 Delivery Device BiPAP Cannula Liter Flow 3.0 Crit Call To/Read Back Yes Yes Blood Gas Notified Whom dr ernesto Sebastian Radiography Diagnostic Testing: Radiology Impression Chest/Abdomen/Pelvis CT 11/04/22 10:48 IMPRESSION: Small left pleural effusion or left basilar infiltration and/or atelectasis. Minimal right pleural effusion and mild right basilar atelectasis. Since prior study, the patient underwent a cholecystectomy. Multiple punctate calcifications are seen in the region of the head and uncinate processes of the pancreas in keeping with prior pancreatitis. Electronically Signed: Zaid Justice MD at 13:01 EST , Chest X-Ray 11/04/22 16:05 IMPRESSION: Mild interstitial prominence, no change from recent studies. Electronically Signed: Maribeth Andino MD at 17:01 EST Reading Location ID and State: [id number] / Tel , Service support , Rhythm Strip Rhythm Strip: Sinus Rhythm Rate: 99 Ectopy: None Physical Exam Narrative Alert awake oriented x 3 no obvious distress no pallor no icterus no JVD s1s2 no murmurs lungs clear abdomen soft no organomegaly no edema no cyanosis frankel + Assessment & Plan Assessment/Plan (1) Acute kidney injury: PLAN: Acute renal failure. Prior to admission at [facility] and at the time of admission at [facility] creatinine was normal. She was subsequently transferred to [facility]. Discharge creatinine was 1.5. Urine analysis over there was fairly benign. She did receive vancomycin and Zosyn. I see a vancomycin trough of 17. Possible she might have sustained ATN. She is admitted here with a creatinine of 2.0. She was started on Bactrim since she had significant diarrhea from Augmentin. Currently has a Frankel catheter, obstructive disease unlikely. Urinalysis shows some hematuria, likely due to Frankel. Most likely this increase in creatinine is related to Bactrim. Finished Bactrim. Creatinine is improving. Good urine output. Hyperkalemia. Again could be mediated by Bactrim. Will change bicarbonate to IV. CT chest without significant edema. IV fluids, bicarbonate. This should help with hyperkalemia as well. She may need CT PE protocol study since she improved with heparin drip. Maintain fluids for today Discussed with hospitalist
[2022-11-05] MEDS: Folic Acid 1 MG Tablet PO (10:56)
[2022-11-05] MEDS: guaiFENesin 1,200 MG Tablet 1200 MG PO ×2 (10:57→20:09)
[2022-11-05] MEDS: Multivitamins,Therapeutic Tablet 1 TABLET PO (10:57)
[2022-11-05] MEDS: Pantoprazole Sodium 40 MG Tablet PO (10:57)
[2022-11-05] MEDS: ARIPiprazole 5 MG Tablet PO (10:57)
[2022-11-05] MEDS: Cholecalciferol (VIT D3) 25 MCG TABLET (1,000 UNITS) 50 MCG PO (10:57)
[2022-11-05] MEDS: Thiamine Hydrochloride 100 MG Tablet PO (10:57)
[2022-11-05] MEDS: amLODIPine 2.5 MG Tablet PO (11:00)
--- NOTE | 2022-11-05 11:50 | CASEMGMT ---
RN CM NOTE: Script for shower chair received from Dr Bonilla and provided to pt and family at this time. They state they plan to get it from [facility]. They deny having any questions at this time. Jenny GALLOWAY RN CM
--- NOTE | 2022-11-05 12:52 | PN.HOSP_ITS ---
Reason for Visit Reason for Visit: Diagnoses Chronic obstructive pulmonary disease, unspecified (11/01/22) Acute kidney failure, unspecified (11/01/22) Nausea with vomiting, unspecified (11/01/22) Diarrhea, unspecified (11/01/22) Subjective Subjective Patient seen and examined.She felt much better this morning. She got very short of breath yesternight, and had to be placed on BIPAP. She has been weaned down to 2 L of oxygen. She denied any coughing, chest pain, palpitations, dizziness, nausea vomiting or diarrhea. Review of systems otherwise negative. Review of systems is otherwise negative. She was started on heparin drip due to concerns about possible PE. Objective Data Objective Data Vital Signs: Vital Signs Temp Pulse Resp BP Pulse Ox O2 Del Method O2 Flow Rate 98.5 F 96 35 H 108/84 H 99 Bi-pap 3 11/05/22 07:00 11/05/22 07:21 11/05/22 07:21 11/05/22 07:00 11/05/22 07:21 11/05/22 08:00 11/05/22 05:00 FiO2 30 11/05/22 07:21 Oxygen Flow Rate (L/min) 3 Oxygen Delivery Method Bi-pap Weight: 136 lb 14.513 oz Body Mass Index (BMI) 23.7 Intake & Output: Intake and Output for Last 24 Hours 11/03/22 11/04/22 11/05/22 23:59 23:59 23:59 Intake Total 2556.0 / 2556.0 2337.25 / 2337.25 162 / 162 Output Total 1000 / 1000 1900 / 1900 1300 / 1300 Balance 1556.0 / 1556.0 437.25 / 437.25 -1138 / -1138 Lab / Micro Data Result Diagrams: 11/05/22 03:52 11/05/22 03:52 Labs: Laboratory Results - last 24 hr 11/02/22 09:15: Stool pH 6.0 L, Stool Calprotectin 118 11/04/22 15:40: Lactic Acid 1.4 11/04/22 15:40: Urine Creatinine 33.40, Urine Urea Nitrogen 302 11/04/22 15:40: Urine Color Yellow, Urine Clarity Clear, Urine pH 6.0, Ur Specific [place] 1.015, Urine Protein 30 H, Urine Glucose (UA) 50 H, Urine Ketones Negative, Urine Occult Blood 150 H, Urine Nitrite Negative, Urine Bilirubin Negative, Urine Urobilinogen Normal, Ur Leukocyte Esterase Negative, Urine RBC 10-25 SEEN, Urine WBC 0-5 SEEN, Ur Squamous Epith Cells 0 SEEN, Urine Bacteria RARE, Urine Mucus 0 SEEN 11/04/22 19:00: PT Cancelled, INR Cancelled, APTT Cancelled 11/04/22 19:35: PT 14.6, INR 1.2, APTT 27.3 11/04/22 20:33: Sodium 138, Potassium 5.4 H, Chloride 113 H, Carbon Dioxide 19.0 L, Anion Gap 6, BUN 27 H, Creatinine 1.91 H, Estim Creat Clear Calc 26.23, Est GFR (MDRD) Af Amer 35 L, Est GFR (MDRD) Non-Af 29 L, BUN/Creatinine Ratio 14.1, Glucose 97, Calcium 8.9 11/05/22 01:40: APTT 83.8 H 11/05/22 03:52: WBC 22.6 H, RBC 3.38 L, Hgb 9.4 L, Hct 29.3 L, MCV 86.7, MCH 27.8, MCHC 32.1, RDW Std Deviation 50.5 H, RDW Coeff of Min 15.9 H, Plt Count 354, MPV 9.8, Immature Gran % (Auto) 4.400 H, Neut % (Auto) 85.4 H, Lymph % (Auto) 4.8 L, [place] % (Auto) 4.4, Eos % (Auto) 0.6, Baso % (Auto) 0.4, Absolute Neuts (auto) 19.3 H, Absolute Lymphs (auto) 1.08, Nucleated RBC % 0 11/05/22 03:52: Sodium 140, Potassium 5.4 H, Chloride 114 H, Carbon Dioxide 19.0 L, Anion Gap 7, BUN 28 H, Creatinine 1.84 H, Estim Creat Clear Calc 27.23, Est GFR (MDRD) Af Amer 36 L, Est GFR (MDRD) Non-Af 30 L, BUN/Creatinine Ratio 15.2, Glucose 139 H, Calcium 9.1 11/05/22 03:52: Lipase 112 11/05/22 08:30: Random Vancomycin 18.2 H 11/05/22 08:30: APTT Cancelled 11/05/22 09:15: APTT 68.4 H Micro: Microbiology 11/04/22 12:31 Blood Culture (Wb) - Right Hand Blood Culture - Preliminary 11/04/22 12:08 Blood Culture (Wb) - Left Hand Blood Culture - Preliminary 11/03/22 07:40 Mucosa - Nasopharyngeal Respiratory Panel (PCR) - Final 11/02/22 09:15 Stool Stool Lactoferrin - Final 11/02/22 09:15 Stool Stool Occult Blood (AGNIESZKA) - Final ABG Data ABG results: ABG 11/04/22 11/05/22 15:47 02:18 Specimen Type ART ART Sample Site R Radial L Radial pH 7.16 L* 7.21 L Bicarbonate Actual 16.9 L 17.6 L Total CO2 18 19 Base Excess -12 L -10 L O2 Saturation 93 L 97 O2 % 30 ABG pCO2 47.2 H 44.1 ABG pO2 83 107 H Alexis Test Positive N/A Respiration Rate 12 O2 Delivery Device BiPAP Cannula Liter Flow 3.0 Crit Call To/Read Back Yes Yes Blood Gas Notified Whom dr ernesto Sebastian Radiography Diagnostic Testing: Radiology Impression Chest/Abdomen/Pelvis CT 11/04/22 10:48 IMPRESSION: Small left pleural effusion or left basilar infiltration and/or atelectasis. Minimal right pleural effusion and mild right basilar atelectasis. Since prior study, the patient underwent a cholecystectomy. Multiple punctate calcifications are seen in the region of the head and uncinate processes of the pancreas in keeping with prior pancreatitis. Electronically Signed: Zaid Justice MD at 13:01 EST , Chest X-Ray 11/04/22 16:05 IMPRESSION: Mild interstitial prominence, no change from recent studies. Electronically Signed: Maribeth Andino MD at 17:01 EST Reading Location ID and State: [id number] / Tel , Service support , Rhythm Strip Rhythm Strip: Sinus Rhythm Rate: 99 Ectopy: None Physical Exam Const alert, oriented x3 and no apparent distress HEENT head/scalp atraumatic, moist oral mucous membranes and oropharynx normal Head and Scalp: normocephalic Eyes PERRL, EOMs intact bilaterally and conjunctivae normal Neck no lymphadenopathy and supple Resp Resp Narrative: diminished breath sounds bibasally, no wheezes or crackles. on 2L of oxygen by nasal canula. Cardio regular rate, regular rhythm, S1 normal heart sound and S2 normal heart sound GI normal to inspection, nondistended, normoactive bowel sounds, soft to palpation, non-tender and non-distended Extremity normal to inspection, full ROM and no clubbing, cyanosis or edema Neuro oriented x3, CN's II-XII intact bilaterally and moves all extremities Sensorium / Orientation: awake and alert Motor Exam: strength 5/5 throughout Psych affect normal Assessment & Plan Assessment/Plan (1) Nausea & vomiting: (2) Diarrhea: PLAN: Plan #Acute on chronic hypoxic respiratory failure * Patient became hypoxic overnight with increased work of breathing. She was having respiratory rate in the 50s. * She was placed on BiPAP but was weaned off of BiPAP onto 2 L of oxygen this morning. * Does not concern about possible PE but it does seem like patient had an acute panic attack and has generalized anxiety disorder. * She is on IV vancomycin and Zosyn and blood cultures also pending. Duplex of the lower extremities done today was negative for PE. * She was started on heparin drip due to concerns about PE. Per discussion with Critical care, her oxygen requirements has improved, so she can be taken off the heparin drip and placed on prophylactic heparin #Acute renal injury due to volume depletion due to acute diarrhea * Cr on admission was 2.05; hydrate gently with iVF * Creatinine is down to 1.84 today with EGFR of 30. * Nephrology on board. * * #Acute diarrhea * C diff ruled out * on immodium. * stool studies pending * diarrhea resolving * #Community acquired pneumonia * was transferred emergently to ICU due to acute respiratory distress * CXR showed evidence of pneumonia * CT of the chest done yesterday showed small left pleural effusion or left basilar infiltration and/or atelectasis with minimal right pleural effusion. * critical care on board. * #sepsis * WBC is now down to 22 today from 27. * CT of the chest as above. CT of the abdomen and pelvis showed no evidence of infection. * Repeat blood cultures pending. * On IV vancomycin and Zosyn. * #Hyperkalemia: Potassium is 5.4. Nephrology on board. Will benefit from Kayexalate. #COPD: * breathing treatment with bronchodilators. * Titrate oxygen to maintain sats > 90% * not in exacerbation #Non anion gap metabolic acidosis due to diarrhea * bicarb today is 19, with anion gap of 7. * nephrology on board. * * #Recent right orbital cellulitis * completed a course of bactrim * #Bipolar disorder and depression: on aripiprazole and buspar as well as remeron. #Chronic pancreatitis: on Creon. #Hypertension:on amlodipine DVT prophylaxis: heparin Charges/Coding Visit Charges Inpatient E&M: 90801 Subs Hosp L2
[2022-11-05] MEDS: busPIRone 5 MG Tablet 10 MG PO ×2 (13:56→20:09)
--- NOTE | 2022-11-05 15:15 | CASEMGMT ---
SARWAT LOMELI NOTE: Call received from pt's sister, Domonique Augustine, inquiring about who would be pt's decision maker for medical decisions. She states pt is in and out of it and not able to make decisions currently. Domonique states she is not aware of pt having done AD in the past and SARWAT LOMELI informed her that there are no AD on file at this time. Domonique states that pt usually has her handle everything. Domonique made aware, if pt is lethargic/drowsy and not alert/oriented, that AD cannot be completed, as she would need to be alert/oriented to complete AD. SARWAT LOMELI informed her that w/out AD in place, that pt's 3 children would be the decision makers. Domonique states that 2 of pt's children, Kirsten and Milan, are both currently in [facility] and that they do not even know that pt is in the hospital. SARWAT LOMELI informed her that SW would be made aware of above and could try and meet w/pt once she is awake/oriented and able to make decisions to inquire if she would like to complete AD to designate someone as her HCPOA. Domonique voices appreciation. Liana MOLINA, made aware. Jenny GALLOWAY RN CM
[2022-11-05] MEDS: Heparin Injection (Vial) 5,000 UNIT/ML VIAL 5000 UNIT SC ×2 (15:30→20:08)
[2022-11-05] MEDS: Menthol/Lanolin/Calamine/Znox 113 GM Tube 1 APPLIC TOPICAL (20:08)
[2022-11-05] MEDS: Atorvastatin Calcium 10 MG Tablet PO (20:09)
--- NOTE | 2022-11-05 20:12 | NURSING ---
Pt tired, requesting pills be given now.
--- NOTE | 2022-11-05 22:35 | CPS ---
PT Refused to wear BIPAP
[2022-11-06] VITALS (19 sets, daily range): BP systolic 103–174; BP diastolic 70–108; PULSE 81–111; RESP 13–31; TEMP 36.6–37.3; O2SAT 92–96
[2022-11-06] MEDS: Ipratropium 0.5 MG/2.5 ML SOLUTION INHALATION ×2 (03:10→07:29)
[2022-11-06] MEDS: 0.9% Saline Lock 10 ML Syringe IV (03:26)
[2022-11-06] MEDS: Loperamide 2 MG Capsule PO (03:33)
[2022-11-06 03:35] LABS: Absolute Lymphocyte Count 1.69 X10^3/uL (0.83-4.51); Absolute Neutrophil Count 11.3 X10^3/uL (2.0-7.7); Basophil# 0.05 X10^3/uL; Basophil% 0.3 % (0-1); Eosinophil# 0.25 X10^3/uL; Eosinophils% 1.6 % (0-5); Hemoglobin 8.8 g/dL (12.0-15.0); Lymphocyte # 1.69 X10^3/ul (0.83-4.51); Lymphocyte % 11.1 % (19-41); Mean Corp Hgb Conc 32.6 g/dL (32-36); Mean Corpuscular Volume 82.8 fL (81-99); Mean Platelet Vol. 9.8 fl (6.2-12.0); Monocyte# 1.51 X10^3/uL; Monocyte% 9.9 % (0-10); NRBC Flagged by Analyzer 0 % (0-5); Neutrophil # 11.33 X10^3/uL (2.7-7.7); Neutrophil % 74.3 % (47-70); POSITIVE DIFFERENTIAL YES; Platelet Count 358 K/mm3 (150-450); RBC Distribution Width CV 15.4 % (11.6-14.6); RBC Distribution Width SD 47.2 fl (35.1-43.9); Red Blood Count 3.26 M/mm3 (4.2-5.4); White Blood Count 15.3 K/mm3 (4.4-11.0)
[2022-11-06 03:39] LABS: Differential Indicated SCAN CRITERIA MET
[2022-11-06 03:50] LABS: Anion Gap 6 (5-15); BUN 22 mg/dL (7-18); BUN/Creat Ratio 17.7 RATIO (10-20); Calcium,Total 8.8 mg/dL (8.5-10.1); Chloride 105 mmol/L (98-107); Creatinine, Serum 1.24 mg/dL (0.55-1.02); EST Glomerular Filtration Rate 47 mL/min (>60); Est Glom Filt Rate - Afr Amer 57 mL/min (>60); Estimated Creatinine Clearance 40.41 ml/min; Glucose 141 mg/dL (74-106); Potassium 3.9 mmol/L (3.5-5.1); Sodium Level 140 mmol/L (136-145)
[2022-11-06 03:52] LABS: Anisocytosis 1+
[2022-11-06] MEDS: Erythromycin Base 1 OPTH.TUBE 1 APPLIC RIGHT EYE ×3 (05:08→17:23)
[2022-11-06] MEDS: busPIRone 5 MG Tablet 10 MG PO ×3 (05:09→21:43)
[2022-11-06] MEDS: Heparin Injection (Vial) 5,000 UNIT/ML VIAL 5000 UNIT SC ×3 (05:09→21:45)
--- NOTE | 2022-11-06 05:53 | PCM.PN.INT ---
Assessment & Plan Assessment/Plan (1) Stage 3 severe COPD by GOLD classification: PLAN: Plan RECOMMENDATIONS: 1. Continue baseline 2 L/min of supplemental oxygen. 2. Continue bronchodilators. 3. Antimicrobials can be discontinued from my perspective. 4. Transition to prednisone 40 mg daily for the next 5 days. 5. Minimize sedating medications. 6. Encourage incentive spirometer use and mobilize patient as tolerated. 7. The patient is medically stable for transfer out of the intensive care unit. 8. Given that the patient is at her baseline from a respiratory perspective, will sign off. Please call with any additional questions. IMPRESSIONS: 1. Acute on chronic hypoxemic respiratory failure The patient was transferred to the medical intensive care unit after becoming increasingly hypoxic with increased work of breathing, likely precipitated by an acute panic attack/generalized anxiety disorder. The patient has known obstructive lung disease and is already on triple therapy inhaler regimen on an outpatient basis. She does have a baseline 2 L/min oxygen requirement. The patient is currently at her baseline from a respiratory perspective. Plan to continue bronchodilators and prednisone 40 mg daily for the next 5 days. Antimicrobials can be discontinued from my perspective, given negative culture results. 2. Encephalopathy Clinical concern for metabolic etiology versus polypharmacy effects. With supportive care, the patient has improved and is currently at her baseline from a mentation perspective. I would try to limit sedating medications as feasible. 3. Diarrheal illness Unclear etiology. Defer further work-up and management to hospitalist. 4. Acute kidney injury Likely secondary to intravascular volume depletion/prerenal etiology in the setting of diarrhea. Continue to monitor urine output. No current indication for renal replacement therapy. Nephrology is following to assist with medical management. 5. Recent hospitalization for periorbital cellulitis/bipolar disorder/depression/anxiety/chronic pancreatitis Complicates care, management, recovery and prognosis. Continue home medications as indicated. This note was generated with [employer] dictation software. It may contain incorrect words, spelling, and punctuation that were not noted in checking the note before signing. Subjective Subjective The patient was seen and examined at the bedside this morning. Events from the last 24 hours have been reviewed. The patient is currently afebrile, hemodynamically stable and maintaining appropriate oxygen saturations on 2 L/min via nasal cannula. The patient is documented to be overall net +9.5 L for the hospitalization. White count has improved to 15,000. Creatinine has improved to 1.24. The patient denies any resting shortness of breath. Objective Data Objective Data The patient's most recent lab work, culture data and imaging studies have all been personally reviewed. Infectious work-up has been unrevealing to date. Vital Signs: Vital Signs Temp Pulse Resp BP Pulse Ox O2 Del Method O2 Flow Rate 98.6 F 86 22 H 120/96 H 94 Nasal Cannula 2 11/06/22 05:00 11/06/22 05:00 11/06/22 05:00 11/06/22 05:00 11/06/22 05:00 11/06/22 05:00 11/06/22 05:00 FiO2 30 11/05/22 07:21 Oxygen Flow Rate (L/min) 2 Oxygen Delivery Method Nasal Cannula Weight: 139 lb 5.314 oz Body Mass Index (BMI) 23.7 Intake & Output: Intake and Output for Last 24 Hours 11/04/22 11/05/22 11/06/22 23:59 23:59 23:59 Intake Total 2337.25 / 2337.25 2415.00 / 2415.00 50 / 50 Output Total 1900 / 1900 2600 / 2600 Balance 437.25 / 437.25 -185.00 / -185.00 50 / 50 Lab / Micro Data Attestation: I reviewed the patient's lab results. Result Diagrams: 11/06/22 03:27 11/06/22 03:27 Labs: Laboratory Results - last 24 hr 11/02/22 09:15: Stool pH 6.0 L, Stool Calprotectin 118 11/05/22 03:52: Lipase 112 11/05/22 08:30: Random Vancomycin 18.2 H 11/05/22 08:30: APTT Cancelled 11/05/22 09:15: APTT 68.4 H 11/06/22 03:27: WBC 15.3 H, RBC 3.26 L, Hgb 8.8 L, Hct 27.0 L, MCV 82.8, MCH 27.0, MCHC 32.6, RDW Std Deviation 47.2 H, RDW Coeff of Min 15.4 H, Plt Count 358, MPV 9.8, Immature Gran % (Auto) 2.800 H, Neut % (Auto) 74.3 H, Lymph % (Auto) 11.1 L, [place] % (Auto) 9.9, Eos % (Auto) 1.6, Baso % (Auto) 0.3, Absolute Neuts (auto) 11.3 H, Absolute Lymphs (auto) 1.69, Nucleated RBC % 0, Diff Path Review May foll, Anisocytosis 1+ 11/06/22 03:27: Sodium 140, Potassium 3.9, Chloride 105, Carbon Dioxide 29.0, Anion Gap 6, BUN 22 H, Creatinine 1.24 H, Estim Creat Clear Calc 40.41, Est GFR (MDRD) Af Amer 57 L, Est GFR (MDRD) Non-Af 47 L, BUN/Creatinine Ratio 17.7, Glucose 141 H, Calcium 8.8 Micro: Microbiology 11/04/22 12:31 Blood Culture (Wb) - Right Hand Blood Culture - Preliminary 11/04/22 12:08 Blood Culture (Wb) - Left Hand Blood Culture - Preliminary 11/03/22 07:40 Mucosa - Nasopharyngeal Respiratory Panel (PCR) - Final 11/02/22 09:15 Stool Stool Lactoferrin - Final 11/02/22 09:15 Stool Stool Occult Blood (AGNIESZKA) - Final ABG Data ABG results: ABG 11/04/22 11/05/22 15:47 02:18 Specimen Type ART ART Sample Site R Radial L Radial pH 7.16 L* 7.21 L Bicarbonate Actual 16.9 L 17.6 L Total CO2 18 19 Base Excess -12 L -10 L O2 Saturation 93 L 97 O2 % 30 ABG pCO2 47.2 H 44.1 ABG pO2 83 107 H Alexis Test Positive N/A Respiration Rate 12 O2 Delivery Device BiPAP Cannula Liter Flow 3.0 Crit Call To/Read Back Yes Yes Blood Gas Notified Whom dr ernesto Sebastian Radiography Diagnostic Testing: Radiology Impression Venous Doppler Study 11/05/22 08:33 Interpretation Summary No evidence for acute deep venous thrombosis bilateral lower extremities with patent and compressible bilateral great saphenous veins. Pulsatile venous flow was noted bilaterally consistent with proximal venous hypertension or obstruction. Clinical correlation would be appropriate. Ordering Physician: Gonzalo Sebastian Referring Physician: Heather Easton Performed By: Som Mcneil RVT Rhythm Strip Rhythm Strip: Sinus Rhythm Rate: 99 Ectopy: None Physical Exam Const alert, oriented x3 and no apparent distress General Appearance: cooperative HEENT normocephalic and head/scalp atraumatic Eyes PERRL, EOMs intact bilaterally and conjunctivae normal Neck supple General: trachea midline Chest inspection of chest normal Resp normal respiratory effort Auscultation: diminished lung sounds; Negative for rales, rhonchi or wheezes Cardio regular rate, regular rhythm, S1 normal heart sound and S2 normal heart sound GI normal to inspection, nondistended, normoactive bowel sounds Extremity no clubbing, cyanosis or edema Skin no rashes or lesions noted Neuro oriented x3, CN's II-XII intact bilaterally, moves all extremities and no focal motor deficits Psych cooperative Charges/Coding Visit Charges Inpatient E&M: 27595 Subs Hosp L2
[2022-11-06] MEDS: Pantoprazole Sodium 40 MG Tablet PO (07:55)
[2022-11-06] MEDS: Menthol/Lanolin/Calamine/Znox 113 GM Tube 1 APPLIC TOPICAL ×2 (07:55→21:46)
[2022-11-06] MEDS: guaiFENesin 1,200 MG Tablet 1200 MG PO ×2 (07:55→21:44)
[2022-11-06] MEDS: ARIPiprazole 5 MG Tablet PO (07:56)
[2022-11-06] MEDS: Thiamine Hydrochloride 100 MG Tablet PO (07:56)
[2022-11-06] MEDS: Folic Acid 1 MG Tablet PO (07:56)
[2022-11-06] MEDS: Multivitamins,Therapeutic Tablet 1 TABLET PO (07:56)
[2022-11-06] MEDS: Cholecalciferol (VIT D3) 25 MCG TABLET (1,000 UNITS) 50 MCG PO (07:56)
[2022-11-06] MEDS: amLODIPine 2.5 MG Tablet PO (08:09)
--- NOTE | 2022-11-06 09:40 | PN.HOSP_ITS ---
Reason for Visit Reason for Visit: Diagnoses Chronic obstructive pulmonary disease, unspecified (11/01/22) Acute kidney failure, unspecified (11/01/22) Nausea with vomiting, unspecified (11/01/22) Diarrhea, unspecified (11/01/22) Subjective Subjective Patient seen and examined. She feels much better today. Her breathing is much better and she is on 2L of oxygen She had an uneventful night and review of systems is otherwise negative. She does remain tachycardic with HR being 111 at time of review; respiratory rate was also 23. Objective Data Objective Data Vital Signs: Vital Signs Temp Pulse Resp BP Pulse Ox O2 Del Method O2 Flow Rate 99.1 F 111 H 23 H 157/94 H 95 Nasal Cannula 2 11/06/22 09:00 11/06/22 09:00 11/06/22 09:00 11/06/22 09:00 11/06/22 09:00 11/06/22 09:00 11/06/22 09:00 FiO2 30 11/05/22 07:21 Oxygen Flow Rate (L/min) 2 Oxygen Delivery Method Nasal Cannula Weight: 139 lb 5.314 oz Body Mass Index (BMI) 23.7 Intake & Output: Intake and Output for Last 24 Hours 11/04/22 11/05/22 11/06/22 23:59 23:59 23:59 Intake Total 2337.25 / 2337.25 2415.00 / 2415.00 50 / 50 Output Total 1900 / 1900 2600 / 2600 725 / 725 Balance 437.25 / 437.25 -185.00 / -185.00 -675 / -675 Lab / Micro Data Result Diagrams: 11/06/22 03:27 11/06/22 03:27 Labs: Laboratory Results - last 24 hr 11/02/22 09:15: Stool pH 6.0 L, Stool Calprotectin 118 11/06/22 03:27: WBC 15.3 H, RBC 3.26 L, Hgb 8.8 L, Hct 27.0 L, MCV 82.8, MCH 27.0, MCHC 32.6, RDW Std Deviation 47.2 H, RDW Coeff of Min 15.4 H, Plt Count 358, MPV 9.8, Immature Gran % (Auto) 2.800 H, Neut % (Auto) 74.3 H, Lymph % (Auto) 11.1 L, [place] % (Auto) 9.9, Eos % (Auto) 1.6, Baso % (Auto) 0.3, Absolute Neuts (auto) 11.3 H, Absolute Lymphs (auto) 1.69, Nucleated RBC % 0, Diff Path Review May foll, Anisocytosis 1+ 11/06/22 03:27: Sodium 140, Potassium 3.9, Chloride 105, Carbon Dioxide 29.0, Anion Gap 6, BUN 22 H, Creatinine 1.24 H, Estim Creat Clear Calc 40.41, Est GFR (MDRD) Af Amer 57 L, Est GFR (MDRD) Non-Af 47 L, BUN/Creatinine Ratio 17.7, Glucose 141 H, Calcium 8.8 Micro: Microbiology 11/04/22 12:31 Blood Culture (Wb) - Right Hand Blood Culture - Preliminary 11/04/22 12:08 Blood Culture (Wb) - Left Hand Blood Culture - Preliminary 11/03/22 07:40 Mucosa - Nasopharyngeal Respiratory Panel (PCR) - Final 11/02/22 09:15 Stool Stool Lactoferrin - Final 11/02/22 09:15 Stool Stool Occult Blood (AGNIESZKA) - Final Radiography Diagnostic Testing: Radiology Impression Venous Doppler Study 11/05/22 08:33 Interpretation Summary No evidence for acute deep venous thrombosis bilateral lower extremities with patent and compressible bilateral great saphenous veins. Pulsatile venous flow was noted bilaterally consistent with proximal venous hypertension or obstruction. Clinical correlation would be appropriate. Ordering Physician: Gonzalo Sebastian Referring Physician: Heather Easton Performed By: Som Mcneil RVT Rhythm Strip Rhythm Strip: Sinus Rhythm Rate: 99 Ectopy: None Physical Exam Const alert, oriented x3 and no apparent distress HEENT head/scalp atraumatic, moist oral mucous membranes and oropharynx normal Head and Scalp: normocephalic Mouth: oral and palatal mucosa normal Eyes PERRL, EOMs intact bilaterally and conjunctivae normal Neck no lymphadenopathy and supple Resp Resp Narrative: diminished breath sounds bibasally, no wheezes or crackles. on 2L of oxygen by nasal canula. Cardio regular rate, regular rhythm, S1 normal heart sound and S2 normal heart sound GI normal to inspection, nondistended, normoactive bowel sounds, soft to palpation, non-tender and non-distended Extremity normal to inspection, full ROM and no clubbing, cyanosis or edema Neuro oriented x3, CN's II-XII intact bilaterally and moves all extremities Sensorium / Orientation: awake and alert Motor Exam: strength 5/5 throughout Psych affect normal Assessment & Plan Assessment/Plan (1) Nausea & vomiting: (2) Diarrhea: PLAN: Plan #Acute on chronic hypoxic respiratory failure * resolving. Now down to 2L of oxygen. * duplex of lower extremities was negative for PE. Heparin drip was therefore discontinued * she remains on IV vancomycin and zosyn. * blood cultures are negative. Respiratory panel negative * #Acute renal injury due to volume depletion due to acute diarrhea * Cr down to 1.24 today. * resolving * nephrology on board. Will monitor * #Acute diarrhea * C diff ruled out * on immodium. * stool studies were negative. * diarrhea resolved * #Community acquired pneumonia * now down to 2L of oxygen. * CXR showed evidence of pneumonia * CT of the chest done yesterday showed small left pleural effusion or left basilar infiltration and/or atelectasis with minimal right pleural effusion. * critical care on board. * on IV vancomycin and zosyn. will dc antibiotics today since all cultures are negative * #sepsis * WBC is now down to 22 today from 27. * CT of the chest as above. CT of the abdomen and pelvis showed no evidence of infection. * Repeat blood cultures negative * On IV vancomycin and Zosyn. will dc today * #Hyperkalemia:resolved. #COPD: * breathing treatment with bronchodilators. * Titrate oxygen to maintain sats > 90% * #Non anion gap metabolic acidosis due to diarrhea * resolved. bicarb is 29. * nephrology on board. * * #Recent right orbital cellulitis * completed a course of bactrim * #Bipolar disorder and depression: on aripiprazole and buspar as well as remeron. #Chronic pancreatitis: on Creon. #Hypertension:on amlodipine DVT prophylaxis: heparin Charges/Coding Visit Charges Inpatient E&M: 48476 Subs Hosp L2
[2022-11-06] MEDS: Ipratropium/Albuterol Sulfate 3 ML AMPUL.NEB INHALATION ×2 (13:19→19:48)
[2022-11-06 14:09] LABS: Pathologist Review Reviewed
--- NOTE | 2022-11-06 14:27 | PCM.PN.REN ---
Subjective Subjective No new complaints. Breathing looks better. Venous Dopplers negative. Objective Data Objective Data Vital Signs: Vital Signs Temp Pulse Resp BP Pulse Ox O2 Del Method O2 Flow Rate 98.5 F 97 16 141/92 H 94 Nasal Cannula 2 11/06/22 12:00 11/06/22 13:16 11/06/22 13:16 11/06/22 12:00 11/06/22 12:00 11/06/22 13:00 11/06/22 13:00 FiO2 30 11/05/22 07:21 Oxygen Flow Rate (L/min) 2 Oxygen Delivery Method Nasal Cannula Weight: 63.2 kg Body Mass Index (BMI) 23.7 Intake & Output: Intake and Output for Last 24 Hours 11/04/22 11/05/22 11/06/22 23:59 23:59 23:59 Intake Total 2337.25 / 2337.25 2415.00 / 2415.00 1470 / 1470 Output Total 1900 / 1900 2600 / 2600 1525 / 1525 Balance 437.25 / 437.25 -185.00 / -185.00 -55 / -55 Lab / Micro Data Result Diagrams: 11/06/22 03:27 11/06/22 03:27 Labs: Laboratory Results - last 24 hr 11/06/22 03:27: WBC 15.3 H, RBC 3.26 L, Hgb 8.8 L, Hct 27.0 L, MCV 82.8, MCH 27.0, MCHC 32.6, RDW Std Deviation 47.2 H, RDW Coeff of Min 15.4 H, Plt Count 358, MPV 9.8, Immature Gran % (Auto) 2.800 H, Neut % (Auto) 74.3 H, Lymph % (Auto) 11.1 L, [place] % (Auto) 9.9, Eos % (Auto) 1.6, Baso % (Auto) 0.3, Absolute Neuts (auto) 11.3 H, Absolute Lymphs (auto) 1.69, Nucleated RBC % 0, Diff Path Review Reviewed, Anisocytosis 1+ 11/06/22 03:27: Sodium 140, Potassium 3.9, Chloride 105, Carbon Dioxide 29.0, Anion Gap 6, BUN 22 H, Creatinine 1.24 H, Estim Creat Clear Calc 40.41, Est GFR (MDRD) Af Amer 57 L, Est GFR (MDRD) Non-Af 47 L, BUN/Creatinine Ratio 17.7, Glucose 141 H, Calcium 8.8 Micro: Microbiology 11/04/22 12:31 Blood Culture (Wb) - Right Hand Blood Culture - Preliminary 11/04/22 12:08 Blood Culture (Wb) - Left Hand Blood Culture - Preliminary 11/03/22 07:40 Mucosa - Nasopharyngeal Respiratory Panel (PCR) - Final 11/02/22 09:15 Stool Stool Lactoferrin - Final 11/02/22 09:15 Stool Stool Occult Blood (AGNIESZKA) - Final Radiography Diagnostic Testing: Radiology Impression Venous Doppler Study 11/05/22 08:33 Interpretation Summary No evidence for acute deep venous thrombosis bilateral lower extremities with patent and compressible bilateral great saphenous veins. Pulsatile venous flow was noted bilaterally consistent with proximal venous hypertension or obstruction. Clinical correlation would be appropriate. Ordering Physician: Gonzalo Sebastian Referring Physician: Heather Easton Performed By: Som Mcneil RVT Rhythm Strip Rhythm Strip: Sinus Rhythm Rate: 99 Ectopy: None Physical Exam Narrative Alert awake oriented x 3 no obvious distress no pallor no icterus no JVD s1s2 no murmurs lungs clear abdomen soft no organomegaly no edema no cyanosis frankel + Assessment & Plan Assessment/Plan (1) Acute kidney injury: PLAN: Acute renal failure. Prior to admission at [facility] and at the time of admission at [facility] creatinine was normal. She was subsequently transferred to [facility]. Discharge creatinine was 1.5. Urine analysis over there was fairly benign. She did receive vancomycin and Zosyn. I see a vancomycin trough of 17. Possible she might have sustained ATN. She is admitted here with a creatinine of 2.0. She was started on Bactrim since she had significant diarrhea from Augmentin. Currently has a Frankel catheter, obstructive disease unlikely. Urinalysis shows some hematuria, likely due to Frankel. Most likely this increase in creatinine is related to Bactrim. Finished Bactrim. Creatinine is improving. Good urine output. Hyperkalemia. Resolved CT chest without significant edema. DC fluids Can DC Frankel catheter
[2022-11-06] MEDS: Acetaminophen 325 MG Tablet 650 MG PO (19:45)
[2022-11-06] MEDS: Atorvastatin Calcium 10 MG Tablet PO (21:43)
--- NOTE | 2022-11-06 22:38 | CPS ---
pt tried bipap on and was on for less then a minute -was placed back on 2 l/m
[2022-11-07] VITALS (8 sets, daily range): BP systolic 126–155; BP diastolic 77–85; PULSE 80–96; RESP 18–20; TEMP 36.5–36.7; O2SAT 86–98
[2022-11-07 06:27] LABS: Basophil# 0.06 X10^3/uL; Basophil% 0.4 % (0-1); Eosinophil# 0.55 X10^3/uL; Eosinophils% 4.1 % (0-5); Hematocrit 27.4 % (37-47); Hemoglobin 8.8 g/dL (12.0-15.0); Lymphocyte % 19.9 % (19-41); Mean Corp Hgb Conc 32.1 g/dL (32-36); Mean Corpuscular Hgb 26.8 pg (27.0-32.0); Mean Corpuscular Volume 83.5 fL (81-99); Mean Platelet Vol. 9.9 fl (6.2-12.0); Monocyte# 1.87 X10^3/uL; Monocyte% 13.8 % (0-10); NRBC Flagged by Analyzer 0 % (0-5); Neutrophil # 8.03 X10^3/uL (2.7-7.7); Neutrophil % 59.2 % (47-70); POSITIVE DIFFERENTIAL YES; Platelet Count 395 K/mm3 (150-450); RBC Distribution Width CV 14.8 % (11.6-14.6); RBC Distribution Width SD 45.4 fl (35.1-43.9); Red Blood Count 3.28 M/mm3 (4.2-5.4); White Blood Count 13.6 K/mm3 (4.4-11.0)
[2022-11-07 06:31] LABS: Differential Indicated SCAN CRITERIA MET
[2022-11-07] MEDS: busPIRone 5 MG Tablet 10 MG PO ×2 (06:31→13:05)
[2022-11-07] MEDS: Erythromycin Base 1 OPTH.TUBE 1 APPLIC RIGHT EYE ×3 (06:33→11:16)
[2022-11-07] MEDS: Heparin Injection (Vial) 5,000 UNIT/ML VIAL 5000 UNIT SC (06:33)
[2022-11-07 06:44] LABS: Differential Comment SCANNED
[2022-11-07 06:56] LABS: Anion Gap 6 (5-15); BUN 15 mg/dL (7-18); BUN/Creat Ratio 15.6 RATIO (10-20); Calcium,Total 8.4 mg/dL (8.5-10.1); Chloride 99 mmol/L (98-107); Creatinine, Serum 0.96 mg/dL (0.55-1.02); EST Glomerular Filtration Rate 63 mL/min (>60); Est Glom Filt Rate - Afr Amer 76 mL/min (>60); Glucose 90 mg/dL (74-106); Sodium Level 141 mmol/L (136-145)
[2022-11-07] MEDS: Ipratropium/Albuterol Sulfate 3 ML AMPUL.NEB INHALATION ×2 (06:58→13:40)
[2022-11-07] MEDS: Cholecalciferol (VIT D3) 25 MCG TABLET (1,000 UNITS) 50 MCG PO (08:34)
[2022-11-07] MEDS: Pantoprazole Sodium 40 MG Tablet PO (08:34)
[2022-11-07] MEDS: ARIPiprazole 5 MG Tablet PO (08:35)
[2022-11-07] MEDS: Multivitamins,Therapeutic Tablet 1 TABLET PO (08:35)
[2022-11-07] MEDS: predniSONE 20 MG Tablet 40 MG PO (08:35)
[2022-11-07] MEDS: amLODIPine 2.5 MG Tablet PO (08:35)
[2022-11-07] MEDS: Folic Acid 1 MG Tablet PO (08:36)
[2022-11-07] MEDS: guaiFENesin 1,200 MG Tablet 1200 MG PO (08:36)
[2022-11-07] MEDS: Thiamine Hydrochloride 100 MG Tablet PO (08:36)
[2022-11-07] MEDS: Potassium Chloride Oral Tablet 20 MEQ 60 MEQ PO (08:38)
--- NOTE | 2022-11-07 12:08 | DCINST_ITS ---
Discharge Instructions Diet Discharge Diet: Low fat / Low cholesterol Activity Discharge Activity: Return to Normal Activity Weight Bearing Status: Weight bearing as tolerated Dressing / Incision Call your doctor if you observe: Fever of 101 or Higher, Shortness of breath, Dizziness, Swelling in the ankles, Chest pain and Increased palpitations (irregular heartbeat) Follow Up Care Test Results: Test results from this visit will be discussed in further detail at your follow- up appointment, if applicable. Discharge Plan Admission Admit Date/Time: 11/01/22 22:17 Primary Reason for Your Visit: CHUY, pneumonia, respiratory failure Attending Provider: Anastacia Bonilla Primary Care Provider: JENNIFER NATARAJAN Consulting Providers: Ciarra Ross ; Lisa Ochoa ; Freddie Perdue ; Gonzalo Sebastian ; Olivier Coffman ; Dieter Harrison ; Ani Eduardo NP ; Courtney Iverson Instructions Patient Instructions: Acute Kidney Failure Dc Discharge Orders/Prescriptions Prescriptions: New prednisone 20 mg Tablet 40 mg PO BREAKFAST Qty: 8 0RF Continued albuterol sulfate [Ventolin HFA] 90 mcg/actuation HFA aerosol inhaler 2 puff INHALATION Q4H PRN (Reason: shortness of breath or wheezing) Qty: 18 6RF mirtazapine 45 mg tablet 45 mg PO QHS cholecalciferol (vitamin D3) 2,000 UNIT capsule 50 mcg PO DAILY pantoprazole 40 MG tablet 40 mg PO DAILY aripiprazole [Abilify] 5 mg Tablet 5 mg PO DAILY hydroxyzine pamoate 25 mg Capsule 25 mg PO Q6H PRN PRN (Reason: Itching) Creon 24,000-76,000 -120,000 unit capsule,delayed release(DR/EC) 1 cap PO TIDCM loperamide 2 mg capsule 2 mg PO Q4H PRN PRN (Reason: Diarrhea) polyvinyl alcohol 1.4 % drops 2 drp ophthalmic (eye) Q6H amlodipine 2.5 mg tablet 2.5 mg PO DAILY simvastatin 20 mg tablet 20 mg PO QHS erythromycin 5 mg/gram (0.5 %) ointment 0.5 inch RIGHT EYE Q6H Discontinued sulfamethoxazole-trimethoprim 800-160 mg tablet 1 tab PO BID Referrals / Follow Up: JENNIFER NATARAJAN NP-C [Primary Care Provider] - Within 2 Weeks Disposition Disposition (needs filled in before D/C Order can be placed): Home, Self Care
--- NOTE | 2022-11-07 12:09 | DS.PCM_ITS ---
Providers Date of Admission: 11/01/22 Date of Discharge: 11/07/22 Primary Care Physician: JENNIFER NATARAJAN, SHOWROOM MANAGER-C Consultations 11/02/22 20:18 Consult: Airport Operations Coordinator / Pulmonary Medicine Routine Consulting Provider: [facility] Reason for Consult: respiratory failure. COPD EMERGENT Consult: No Notified: Yes Date Notified: 11/02/22 Time Notified: 20:18 Method of Notification: Text 11/04/22 10:49 Consult: Nephrology Routine Consulting Provider: Courtney Iverson Reason for Consult: CHUY EMERGENT Consult: No Notified: Yes Date Notified: 11/04/22 Time Notified: 10:49 Method of Notification: Verbal Reason For Visit: CHUY Diagnosis Discharge Diagnosis (1) Acute kidney injury: Status: Acute Code(s): N17.9 - Acute kidney failure, unspecified Plan #Acute on chronic hypoxic respiratory failure * resolving. Now down to 2L of oxygen. * duplex of lower extremities was negative for PE. Heparin drip was therefore discontinued * she remains on IV vancomycin and zosyn. * blood cultures are negative. Respiratory panel negative * #Acute renal injury due to volume depletion due to acute diarrhea * Cr down to 1.24 today. * resolving * nephrology on board. Will monitor * #Acute diarrhea * C diff ruled out * on immodium. * stool studies were negative. * diarrhea resolved * #Community acquired pneumonia * now down to 2L of oxygen. * CXR showed evidence of pneumonia * CT of the chest done yesterday showed small left pleural effusion or left bas ilar infiltration and/or atelectasis with minimal right pleural effusion. * critical care on board. * on IV vancomycin and zosyn. will dc antibiotics today since all cultures are negative * #sepsis * WBC is now down to 22 today from 27. * CT of the chest as above. CT of the abdomen and pelvis showed no evidence of infection. * Repeat blood cultures negative * On IV vancomycin and Zosyn. will dc today * #Hyperkalemia:resolved. #COPD: * breathing treatment with bronchodilators. * Titrate oxygen to maintain sats > 90% * #Non anion gap metabolic acidosis due to diarrhea * resolved. bicarb is 29. * nephrology on board. * * #Recent right orbital cellulitis * completed a course of bactrim * #Bipolar disorder and depression: on aripiprazole and buspar as well as remeron. #Chronic pancreatitis: on Creon. #Hypertension:on amlodipine DVT prophylaxis: heparin Medications at Discharge Home Medications cholecalciferol (vitamin D3) 50 mcg (2,000 unit) capsule 50 mcg PO DAILY SUPPLEMENT 12/29/18 pantoprazole 40 mg tablet,delayed release 40 mg PO DAILY GERD 08/12/20 albuterol sulfate 90 mcg/actuation aerosol inhaler (Ventolin HFA) 2 puff inhalation Q4H PRN shortness of breath or wheezing #18 grams 11/14/20 aripiprazole 5 mg tablet (Abilify) 5 mg PO DAILY mood 01/22/21 hydroxyzine pamoate 25 mg capsule 25 mg PO Q6H PRN PRN Itching 06/12/21 mirtazapine 45 mg tablet 45 mg PO QHS sleep 01/16/22 amlodipine 2.5 mg tablet 2.5 mg PO DAILY BP 11/01/22 erythromycin 5 mg/gram (0.5 %) eye ointment 0.5 inch RIGHT EYE Q6H antibiotic 11/01/22 [id number] 24,000-76,000-120,000 unit capsule,delayed rel (Creon) 1 cap PO TIDCM Check with primary doctor 11/01/22 loperamide 2 mg capsule 2 mg PO Q4H PRN PRN Diarrhea 11/01/22 polyvinyl alcohol 1.4 % eye drops 2 drp ophthalmic (eye) Q6H eye infection 11/01/22 simvastatin 20 mg tablet 20 mg PO QHS cholesterol 11/01/22 prednisone 20 mg tablet 40 mg PO BREAKFAST #8 tabs 11/07/22 Hospital Course Operations None Procedures 2-D Echocardiogram Summary of Care Provided Minutes Spent on Discharge: 60 Hospital Course: Patient is a 57-year-old female with an extensive past medical history as outlined was admitted through the ED with a complaint of decreased urine output and bilateral flank pain. Of note, patient had recently been discharged from [facility] after she was transferred there from [facility] for acute ophthalmology evaluation due to right orbital cellulitis. That hospital stay has been complicated by severe diarrhea with CHUY. She was placed on Augmentin which was subsequently switched to Bactrim and he was discharged home on 10/29/2022. Patient said since she had gone home she had been drinking lots of fluids but her urine output had been decreasing. She also had bilateral flank pain and also admitted still having diarrhea. On admission labs were significant for sodium of 30 with creatinine of 2.05 with baseline creatinine noted to be 0.62. She was initially admitted and managed for CHUY likely prerenal due to dehydration from acute diarrhea. C. difficile had been ruled out with the acute diarrhea. She also had a non-anion gap metabolic acidosis which was due to the diarrhea as well as hyponatremia. Hospital course was complicated by patient having severe respiratory distress becoming tachypneic and having increased work of breathing which she ascribes to a severe anxiety attack. She was started on BiPAP and transferred to the ICU and started on Zosyn due to concerns about pneumonia as chest x-ray showed left lower lobe infiltrate. She was also placed on Ativan for anxiety. Critical care was consulted. Patient again did have such severe shortness of breath and due to concerns about possible PE she was started on heparin drip. However duplex of the lower extremities ruled out DVT and she was weaned down to her baseline oxygen levels. She could not have a CT of the chest initially because of impaired kidney function. Her kidney function improved and her respiratory status also improved and heparin drip was stopped due to low suspicion for PE. Antibiotics were also discontinued after she completed a 5-day course. She was transferred out of the ICU to the regular nursing floor. Nephrology was also consulted on account of CHUY. CHUY subsequently resolved and creatinine trended down to normal. She was discharged home on 11/07/2022 and is to follow-up with her primary care doctor within 1 to 2 weeks. Patient seen and examined prior to discharge. She had no active complaints and had an uneventful night. Review of systems otherwise negative. Labs and vitals reviewed. Medication reviewed and reconciled. Physical Exam Const alert, oriented x3 and no apparent distress General Appearance: cooperative Orientation / Consciousness: awake Exam Limitations: no limitations HEENT normocephalic, head/scalp atraumatic, hearing grossly normal bilaterally, moist oral mucous membranes and oropharynx normal Mouth: oral and palatal mucosa normal Eyes PERRL, EOMs intact bilaterally and conjunctivae normal Neck no lymphadenopathy and supple Resp Resp Narrative: diminished breath sounds bibasally, no wheezes or crackles. on room air Cardio regular rate, regular rhythm, S1 normal heart sound and S2 normal heart sound GI normal to inspection, nondistended, normoactive bowel sounds, soft to palpation, non-tender and non-distended Extremity normal to inspection, full ROM and no clubbing, cyanosis or edema Skin no rashes or lesions noted Neuro oriented x3, CN's II-XII intact bilaterally and moves all extremities Sensorium / Orientation: awake and alert Motor Exam: strength 5/5 throughout Psych affect normal Weight / BMI Weight Weight: 137 lb 2.04 oz Body Mass Index (BMI) 23.7 ABG / Lab / Microbiology Data Result Diagrams: 11/07/22 05:40 11/07/22 05:40 Laboratory: Laboratory Results - last 24 hr 11/06/22 03:27: Diff Path Review Reviewed 11/07/22 05:40: WBC 13.6 H, RBC 3.28 L, Hgb 8.8 L, Hct 27.4 L, MCV 83.5, MCH 26.8 L, MCHC 32.1, RDW Std Deviation 45.4 H, RDW Coeff of Min 14.8 H, Plt Count 395, MPV 9.9, Immature Gran % (Auto) 2.600 H, Neut % (Auto) 59.2, Lymph % (Auto) 19.9, [place] % (Auto) 13.8 H, Eos % (Auto) 4.1, Baso % (Auto) 0.4, Absolute Neuts (auto) 8.0 H, Absolute Lymphs (auto) 2.70, Nucleated RBC % 0, Differential Comment SCANNED, Diff Path Review May 11/07/22 05:40: Sodium 141, Potassium 3.0 L, Chloride 99, Carbon Dioxide 36.0 H, Anion Gap 6, BUN 15, Creatinine 0.96, Estim Creat Clear Calc 52.20, Est GFR (MDRD) Af Amer 76, Est GFR (MDRD) Non-Af 63, BUN/Creatinine Ratio 15.6, Glucose 90, Calcium 8.4 L Microbiology: Microbiology 11/04/22 12:31 Blood Culture (Wb) - Right Hand Blood Culture - Preliminary 11/04/22 12:08 Blood Culture (Wb) - Left Hand Blood Culture - Preliminary 11/03/22 07:40 Mucosa - Nasopharyngeal Respiratory Panel (PCR) - Final 11/02/22 09:15 Stool Stool Lactoferrin - Final 11/02/22 09:15 Stool Stool Occult Blood (AGNIESZKA) - Final D/C Instructions Discharge Diet: Low fat / Low cholesterol Weight Bearing Status: Weight bearing as tolerated Call your doctor if you observe: Fever of 101 or Higher, Shortness of breath, Dizziness, Swelling in the ankles, Chest pain and Increased palpitations (irregular heartbeat) Meaningful Use Info Meaningful Use Diagnoses (Choose all that apply): None applicable Discharge Plan Admission Admit Date/Time: 11/01/22 22:17 Primary Reason for Your Visit: CHUY, pneumonia, respiratory failure Attending Provider: Anasatcia Bonilla Primary Care Provider: JENNIFER NATARAJAN Consulting Providers: Ciarra Ross ; Lisa Ochoa ; Freddie Perdue ; Gonzalo Sebastian ; Olivier Coffman ; Dieter Harrison ; Ani Eduardo NP ; Courtney Iverson Instructions Patient Instructions: Acute Kidney Failure Dc Discharge Orders/Prescriptions Prescriptions: New prednisone 20 mg Tablet 40 mg PO BREAKFAST Qty: 8 0RF Continued albuterol sulfate [Ventolin HFA] 90 mcg/actuation HFA aerosol inhaler 2 puff INHALATION Q4H PRN (Reason: shortness of breath or wheezing) Qty: 18 6RF mirtazapine 45 mg tablet 45 mg PO QHS cholecalciferol (vitamin D3) 2,000 UNIT capsule 50 mcg PO DAILY pantoprazole 40 MG tablet 40 mg PO DAILY aripiprazole [Abilify] 5 mg Tablet 5 mg PO DAILY hydroxyzine pamoate 25 mg Capsule 25 mg PO Q6H PRN PRN (Reason: Itching) Creon 24,000-76,000 -120,000 unit capsule,delayed release(DR/EC) 1 cap PO TIDCM loperamide 2 mg capsule 2 mg PO Q4H PRN PRN (Reason: Diarrhea) polyvinyl alcohol 1.4 % drops 2 drp ophthalmic (eye) Q6H amlodipine 2.5 mg tablet 2.5 mg PO DAILY simvastatin 20 mg tablet 20 mg PO QHS erythromycin 5 mg/gram (0.5 %) ointment 0.5 inch RIGHT EYE Q6H Discontinued sulfamethoxazole-trimethoprim 800-160 mg tablet 1 tab PO BID Referrals / Follow Up: Annmarie Hay MD [Med Staff - Dining Service Supervisor] - 11/11/22 4:00 pm Disposition Disposition (needs filled in before D/C Order can be placed): Home, Self Care Charges/Coding Visit Charges Inpatient E&M: 86326 Disch Hosp >30min
--- NOTE | 2022-11-07 12:35 | CASEMGMT ---
Patient has order for discharge. RN CM in to discuss needs with patient. Patient declines HHC at this time. Per therapy, patient walked 100 feet stand by assist. Patient states she would like tub bench for at home. Script received and provided to patient with instructions to take to pharmacy of choice to get filled. Patient voiced understanding and had no further questions or concerns at this time.
--- NOTE | 2022-11-07 12:56 | CASEMGMT ---
SW met with patient. Introduced self and role at [facility]. 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 Patient said she would like to complete documents. SW completed documents with patient. Copies were made and give to patient along with original. SW also placed a copy in patient's chart. Joanne MACHADO
[2022-11-07 13:23] LABS: Pathologist Review Reviewed
== END 2022-11-07 01:54 | disposition home or self-care (01) | DRG 469 ==
LOC: ED 22:08 → MS3 22:30 → ICU 11-03 07:27 → PCU 11-07 11:39
PROVIDERS: Internal Medicine; Internal Medicine Critical Care Medicine; Internal Medicine Nephrology; Admitting Provider Internal Medicine; Emergency Provider Emergency Medicine; PCP Nurse Practitioner; Visit Provider Student in an Organized Health Care Education/Training Program
DX: N17.0 Acute kidney failure with tubular necrosis (principal); J96.21 Acute and chronic respiratory failure with hypoxia; A41.9 Sepsis, unspecified organism; G93.41 Metabolic encephalopathy; E87.4 Mixed disorder of acid-base balance; E87.1 Hypo-osmolality and hyponatremia; E87.29 Other acidosis; H05.011 Cellulitis of right orbit; J18.9 Pneumonia, unspecified organism; J90 Pleural effusion, not elsewhere classified; J44.9 Chronic obstructive pulmonary disease, unspecified; F31.9 Bipolar disorder, unspecified; K86.1 Other chronic pancreatitis; E86.0 Dehydration; E86.9 Volume depletion, unspecified; I10 Essential (primary) hypertension; R19.7 Diarrhea, unspecified; E87.5 Hyperkalemia; J98.11 Atelectasis; F17.210 Nicotine dependence, cigarettes, uncomplicated; F41.0 Panic disorder [episodic paroxysmal anxiety]; F41.1 Generalized anxiety disorder
CPT/HCPCS: 36415; 36600; 71045; 71250; 74176; 80048; 80053; 80202; 81001; 82274; 82570; 82803; 83605; 83630; 83690; 83986; 83993; 84484; 84540; 85025; 85610; 85730; 87040; 87506; 87633; 93005; 93970; 94002; 94003; 94640; 94660; 94668; 94762; 97162; 97166; 97530; 97535; 97802; 99252; 99285; J7030; J7040; J7050; A4216; G0463; J2405

== ENCOUNTER 2023-06-02 15:00 | Emergency (ER) | payer MEDICAID, SELFPAY ==
[2023-06-02 15:01] VITALS: BP 148/99; PULSE 100; RESP 17; TEMP 36.2; O2SAT 95; BMI 23.0
[2023-06-02 15:25] LABS: Absolute Lymphocyte Count 2.95 X10^3/uL (0.83-4.51); Absolute Neutrophil Count 7.4 X10^3/uL (2.0-7.7); Basophil# 0.12 X10^3/uL; Eosinophil# 0.42 X10^3/uL; Eosinophils% 3.6 % (0-5); Hematocrit 40.6 % (37-47); Hemoglobin 13.3 g/dL (12.0-15.0); Lymphocyte # 2.95 X10^3/ul (0.83-4.51); Lymphocyte % 25.1 % (19-41); Mean Corp Hgb Conc 32.8 g/dL (32-36); Mean Corpuscular Hgb 27.3 pg (27.0-32.0); Mean Corpuscular Volume 83.2 fL (81-99); Mean Platelet Vol. 10.1 fl (6.2-12.0); Monocyte# 0.75 X10^3/uL; Monocyte% 6.4 % (0-10); NRBC Flagged by Analyzer 0 % (0-5); Neutrophil # 7.41 X10^3/uL (2.7-7.7); Neutrophil % 63.1 % (47-70); Platelet Count 361 K/mm3 (150-450); RBC Distribution Width CV 15.3 % (11.6-14.6); RBC Distribution Width SD 46.1 fl (35.1-43.9); Red Blood Count 4.88 M/mm3 (4.2-5.4); White Blood Count 11.7 K/mm3 (4.4-11.0)
--- NOTE | 2023-06-02 15:25 | RAD_ITS ---
STUDY: X-RAY CHEST REASON FOR EXAM: Female, 58 years old. SOB TECHNIQUE: Shortness of breath. COMPARISON: Comparison is made with prior study dated November 04, 2022. FINDINGS: There is hyperinflation of the lungs consistent with chronic obstructive lung disease (COPD). There is no demonstrated pleural abnormality. Normal size heart. Calcified bilateral hilar lymph nodes. Normal visualized pulmonary arteries. There is atherosclerotic calcification of the aortic arch with tortuosity. Normal visualized thoracic spine. Normal visualized ribs, clavicles, and shoulders. There is no demonstrated abnormality of the visualized soft tissue structures of the upper abdomen. RAD/Chest 1 View (Portable) IMPRESSION: Hyperinflation. Decreased bronchovascular markings in the upper lobes suggestive of emphysematous change. Electronically Signed: Zaid Justice MD at 15:38 EDT ,
[2023-06-02 15:41] LABS: Anion Gap 9 (5-15); BUN 6 mg/dL (7-18); BUN/Creat Ratio 6.9 RATIO (10-20); Calcium,Total 9.3 mg/dL (8.5-10.1); Chloride 105 mmol/L (98-107); Creatinine, Serum 0.87 mg/dL (0.55-1.02); EST Glomerular Filtration Rate 71 mL/min (>60); Est Glom Filt Rate - Afr Amer 86 mL/min (>60); Estimated Creatinine Clearance 56.88 ml/min; Glucose 117 mg/dL (74-106); Potassium 4.2 mmol/L (3.5-5.1); Sodium Level 141 mmol/L (136-145)
[2023-06-02 15:55] VITALS: O2SAT 97
--- NOTE | 2023-06-02 16:53 | ED.VIS.DYS ---
HPI History of Present Illness Chief Complaint: Shortness of Breath Narrative Narrative: 58-year-old female with cough and shortness of breath for 3 weeks. She also complains of right-sided facial pain in her right frontal and right cheek region. Denies any trauma. Patient has history of orbital cellulitis in the past but is not feeling the same. She does have any pain with eye movement. There is no rash over the face. Patient has had some nasal drainage. Patient is a smoker with history of COPD. She states she has breathing treatments, oxygen and everything she needs at home. [facility] Medical History Abdominal pain Alcohol abuse Alcoholic hepatitis Anemia Anxiety and depression Arthritis Asthma Benign hypertension Chronic pancreatitis COPD (chronic obstructive pulmonary disease) Diarrhea GERD (gastroesophageal reflux disease) History of back problems HPV (human papilloma virus) infection Nicotine dependence, cigarettes, uncomplicated Stage 3 severe COPD by GOLD classification Tobacco abuse Unintentional weight loss Home Medications cholecalciferol (vitamin D3) 50 mcg (2,000 unit) capsule 50 mcg PO DAILY SUPPLEMENT 12/29/18 [History Last Taken 10/31/22] pantoprazole 40 mg tablet,delayed release 40 mg PO DAILY GERD 08/12/20 [History Last Taken 10/31/22] albuterol sulfate 90 mcg/actuation aerosol inhaler (Ventolin HFA) 2 puff inhalation Q4H PRN shortness of breath or wheezing #18 grams 11/14/20 [Rx Last Taken Unknown] aripiprazole 5 mg tablet (Abilify) 5 mg PO DAILY mood 01/22/21 [History Last Taken 10/31/22] hydroxyzine pamoate 25 mg capsule 25 mg PO Q6H PRN PRN Itching 06/12/21 [History Last Taken 10/31/22] mirtazapine 45 mg tablet 45 mg PO QHS sleep 01/16/22 [History Last Taken 10/31/22] amlodipine 2.5 mg tablet 2.5 mg PO DAILY BP 11/01/22 [History Last Taken Unknown] erythromycin 5 mg/gram (0.5 %) eye ointment 0.5 inch RIGHT EYE Q6H antibiotic 11/01/22 [History Last Taken Unknown] [id number] 24,000-76,000-120,000 unit capsule,delayed rel (Creon) 1 cap PO TIDCM Check with primary doctor 11/01/22 [History Last Taken 10/31/22] loperamide 2 mg capsule 2 mg PO Q4H PRN PRN Diarrhea 11/01/22 [History Last Taken Unknown] polyvinyl alcohol 1.4 % eye drops 2 drp ophthalmic (eye) Q6H eye infection 11/01/22 [History Last Taken 11/01/22] simvastatin 20 mg tablet 20 mg PO QHS cholesterol 11/01/22 [History Last Taken 10/31/22] prednisone 20 mg tablet 40 mg (2 x 20 mg) PO BREAKFAST #8 tabs 11/07/22 [Rx Last Taken Unknown] doxycycline hyclate 100 mg tablet 100 mg PO BID #20 tabs 06/02/23 [Rx Last Taken Unknown] tramadol 50 mg tablet 50 mg PO Q6H PRN pain #7 tabs 06/02/23 [Rx Last Taken Unknown] Allergy/AdvReac Type Severity Reaction Status Date / Time Penicillins Allergy Hives Verified 11/01/22 19:37 hydrocodone [From [place]] AdvReac Itching Verified 11/01/22 19:37 Family History Mother Diabetes Hypertension Heart disease High cholesterol Arthritis Thyroid disorder Brother Hypertension Sister Cancer cervical Thyroid disorder Father Kidney disease Daughter Thyroid disorder Surgical History History of appendectomy History of colonoscopy History of tubal ligation Social History Smoking Status: Former smoker quit date: 02/20/18 pack-years: 75 Tobacco: How many years used: 30 second hand exposure: Yes alcohol intake: current alcohol intake frequency: 3 or more drinks per day Alcohol type: beer substance use type: does not use caffeine: Yes ROS ROS ED Constitutional Constitutional ED: Denies chills, fever(s) or sweats Eyes Eyes: Denies blurry vision or change in vision ENT ENT ED: Reports rhinorrhea and other Details: Sinus pressure in the right forehead and right facial region ; Denies ear pain or sore throat Cardiovascular Cardiovascular: Denies chest pain, palpitations or racing heartbeat Respiratory/Chest Respiratory/Chest: Reports cough and dyspnea; Denies sputum Gastrointestinal Gastrointestinal: Denies abdominal pain, constipation, diarrhea, nausea or vomiting Genitourinary Genitourinary ED: Denies dysuria, hematuria or urinary frequency Musculoskeletal Musculoskeletal: Denies arthralgias, myalgias or neck pain Integumentary Denies abscess, Abrasions or rash Neurologic Neurologic: Denies headache(s), paresthesias or weakness Psychiatric Psychiatric: Denies anxiety, depression, suicidal ideation or suicidal thoughts Endocrine Endocrinology: Denies polydipsia or polyuria EXAM Physical Exam Const Vital Signs: 06/02/23 15:01 06/02/23 15:55 Temperature 97.2 F L Temperature Source Temporal Pulse Rate 100 Respiratory Rate 17 Respiratory Effort Normal Respiratory Depth Normal Respiratory Pattern Normal Blood Pressure 148/99 H Blood Pressure Mean 115 Pulse Ox 95 Oxygen Delivery Method Room Air Room Air Positive well nourished General Appearance ED: NAD HEENT Reports moist mucous membranes Eyes PERRL and EOMs intact bilaterally Neck no lymphadenopathy and supple Resp normal respiratory effort Resp Narrative: Scattered mild wheezes. Cardio regular rate and regular rhythm Neuro oriented x3 and CN's II-XII intact bilaterally Sensorium / Orientation: alert Psych mental status grossly normal Skin no wounds General Skin Exam: Negative for jaundice MDM MDM MDM Narrative Medical decision making narrative: Patient presenting with shortness of breath and cough. Still having facial pain and pressure. On exam she does have percussion tenderness of the frontal and maxillary sinuses. CBC was obtained to assess white blood cell count, hemoglobin, platelets. BMP to assess renal function and electrolytes. Chest x-ray was obtained to rule out pneumonia. Patient's lab work-up was ultimately unremarkable. Chest x-ray my interpretation shows no acute process. Radiologist interprets and agrees. She does have some scattered mild wheezes but does not want treatment. Does want to be treated for sinusitis due to her facial pain and pressure. I will start her on doxycycline because she has a severe penicillin allergy. Patient will also be given a short supply of tramadol for pain at home. Return precautions discussed. Impression: 1. Dyspnea 2. Cough 3. Sinusitis Lab Data Attestation: I reviewed the patient's lab results. Labs: Laboratory Results - last 24 hr 06/02/23 15:06 WBC 11.7 H RBC 4.88 Hgb 13.3 Hct 40.6 MCV 83.2 MCH 27.3 MCHC 32.8 RDW Std Deviation 46.1 H RDW Coeff of Min 15.3 H Plt Count 361 MPV 10.1 Immature Gran % (Auto) 0.800 Neut % (Auto) 63.1 Lymph % (Auto) 25.1 [place] % (Auto) 6.4 Eos % (Auto) 3.6 Baso % (Auto) 1.0 Absolute Neuts (auto) 7.4 Absolute Lymphs (auto) 2.95 Nucleated RBC % 0 Sodium 141 Potassium 4.2 Chloride 105 Carbon Dioxide 27.0 Anion Gap 9 BUN 6 L Creatinine 0.87 Estim Creat Clear Calc 56.88 Est GFR (MDRD) Af Amer 86 Est GFR (MDRD) Non-Af 71 BUN/Creatinine Ratio 6.9 L Glucose 117 H Calcium 9.3 Radiography Diagnostic Testing: Clinical Impression(s) from Imaging Studies Chest X-Ray 06/02/23 15:25 IMPRESSION: Hyperinflation. Decreased bronchovascular markings in the upper lobes suggestive of emphysematous change. Electronically Signed: Zaid Justice MD at 15:38 EDT , Discharge Plan Triage Chief Complaint: Shortness of Breath ED Provider: Levar Handy Dx/Rx/DC Orders Clinical Impression: Sinusitis Instructions: ED Sinusitis (Antibiotic Treatment) Prescriptions: New tramadol 50 mg tablet 50 mg PO Q6H PRN (Reason: pain) Qty: 7 0RF doxycycline hyclate 100 mg tablet 100 mg PO BID Qty: 20 0RF No Action albuterol sulfate [Ventolin HFA] 90 mcg/actuation HFA aerosol inhaler 2 puff INHALATION Q4H PRN (Reason: shortness of breath or wheezing) Qty: 18 6RF mirtazapine 45 mg tablet 45 mg PO QHS cholecalciferol (vitamin D3) 2,000 UNIT capsule 50 mcg PO DAILY pantoprazole 40 MG tablet 40 mg PO DAILY aripiprazole [Abilify] 5 mg Tablet 5 mg PO DAILY hydroxyzine pamoate 25 mg Capsule 25 mg PO Q6H PRN PRN (Reason: Itching) Creon 24,000-76,000 -120,000 unit capsule,delayed release(DR/EC) 1 cap PO TIDCM loperamide 2 mg capsule 2 mg PO Q4H PRN PRN (Reason: Diarrhea) polyvinyl alcohol 1.4 % drops 2 drp ophthalmic (eye) Q6H amlodipine 2.5 mg tablet 2.5 mg PO DAILY simvastatin 20 mg tablet 20 mg PO QHS erythromycin 5 mg/gram (0.5 %) ointment 0.5 inch RIGHT EYE Q6H prednisone 20 mg Tablet 40 mg PO BREAKFAST Qty: 8 0RF Primary Care Provider: JENNIFER NATARAJAN Referrals: JENNIFER NATARAJAN, [employer] [Primary Care Provider] - Disposition Disposition: Home, Self Care
[2023-06-02] MEDS: Doxycycline 100 MG CAPSULE PO (17:01)
[2023-06-02] MEDS: traMADol 50 MG Tablet PO (17:01)
== END 2023-06-02 17:06 | disposition home or self-care (01) ==
PROVIDERS: Emergency Provider Student in an Organized Health Care Education/Training Program; PCP Nurse Practitioner; Visit Provider Student in an Organized Health Care Education/Training Program
DX: J32.9 Chronic sinusitis, unspecified (principal); J44.9 Chronic obstructive pulmonary disease, unspecified; Z87.891 Personal history of nicotine dependence; I10 Essential (primary) hypertension; Z99.81 Dependence on supplemental oxygen; K21.9 Gastro-esophageal reflux disease without esophagitis; F41.8 Other specified anxiety disorders; Z79.899 Other long term (current) drug therapy; R19.7 Diarrhea, unspecified; Z90.49 Acquired absence of other specified parts of digestive tract; R06.00 Dyspnea, unspecified; R05.9 Cough, unspecified
CPT/HCPCS: 71045; 71271; 80048; 85025; 87428; 99284; A4216

== ENCOUNTER → 2023-06-02 | Outpatient (CLI) | payer MEDICAID, SELFPAY ==
--- NOTE | 2023-06-02 14:22 | CT_ITS ---
STUDY: LOW DOSE CT LUNG CANCER SCREENING REASON FOR EXAM: Female, 58 years old. smoker RADIATION DOSAGE (If Supplied By Facility): CTDIvol = ( 2.39 ) mGy, DLP = ( 77.43 ) mGycm TECHNIQUE: No contrast was administered. Low dose technique was utilized (average mAS-38 and kVp 120). 1.25 mm axial source images with a slice interval of 1.25-mm were reconstructed in lung windows. 2.5 mm axial source images with a slice interval of 2.5-mm were reconstructed in lung windows. 5.0 mm axial source images with a slice interval of 5.0-mm were reconstructed in soft tissue windows. COMPARISON: Prior study dated: 11/04/2022 and 05/28/2022 NODULES: There are no lung nodules seen. Total lung nodules (excluding granulomas): 0 Emphysema: Moderate to severe upper lobe predominant emphysema. Endobronchial lesion: None. Minimal secretions layering in the trachea. Aorta: Normal caliber with mild atherosclerotic calcification. There is more significant calcification at the origin of the left subclavian artery, unchanged. CORONARY ARTERIES: Coronary artery calcification is seen. Heart: Normal heart size. No pericardial effusion. Mitral calcification. Pulmonary artery: Normal size. Mediastinal nodes: No lymphadenopathy. Other chest and abdominal findings: No acute finding at the visualized portion of the upper abdomen, with significant limitation to the evaluation due to noise. Mild degenerative changes throughout the spine. CT/Low Dose CT Lung Screening IMPRESSION: Lung-RADS category 1 - Continue annual screening with LDCT in 12 months. IMPORTANT NOTES FOR USE: ACR Lung-RADS Version 1.1 Assessment Categories Release Date: 2018 Category: Coded 0-4 bases on nodule(s) with highest degree of suspicion. Negative screen is defined as categories 1 and 2; a positive screen is defined as categories 3 and 4. Category 3 and 4A nodules that are unchanged on interval CT should be coded as category 2, and individuals returned to screening in 12 months. Category 4X: Category 3 or 4 nodules with additional imaging findings that increase the suspicion of lung cancer, such as spiculation, GGN that doubles in size in 1 year, enlarged lymph notes, etc. Category Modifiers: S (significant finding unrelated to lung cancer) Electronically Signed: Peterson Matson MD at 22:28 EDT ,
== END | disposition home or self-care (01) ==
LOC: CT 14:21
PROVIDERS: PCP Nurse Practitioner; Referring Provider Nurse Practitioner Acute Care; Visit Provider Nurse Practitioner Acute Care
DX: F17.210 Nicotine dependence, cigarettes, uncomplicated (principal)
CPT/HCPCS: 71271

== ENCOUNTER 2023-07-08 18:10 | Emergency (ER) | payer MEDICAID, SELFPAY ==
[2023-07-08 18:11] VITALS: BP 149/99; PULSE 106; RESP 21; TEMP 36.7; O2SAT 91; BMI 23.9
--- NOTE | 2023-07-08 18:47 | EDS_ITS ---
HPI History of Present Illness Chief Complaint: Shortness of Breath Informant: patient Onset/Context/Timing Onset: Yesterday Narrative Narrative: Patient presents secondary to increased shortness of breath and bilateral shoulder pain. She is a history of COPD and feels that she likely has bronchitis. Symptoms started last evening. She states her oxygen dropped into the 70s on room air but she is supposed to wear oxygen via nasal cannula when she sleeps. After she put her oxygen on her saturation came back up into the 90s. She has had some chills but no measured fever. She is coughing up a small amount of yellow sputum. She complains of abdominal pain that she states feels like sore muscles from coughing. She also complains of waxing and waning pain to her bilateral shoulders. [facility] Medical History Abdominal pain Alcohol abuse Alcoholic hepatitis Anemia Anxiety and depression Arthritis Asthma Benign hypertension Chronic pancreatitis COPD (chronic obstructive pulmonary disease) Diarrhea GERD (gastroesophageal reflux disease) History of back problems HPV (human papilloma virus) infection Nicotine dependence, cigarettes, uncomplicated Stage 3 severe COPD by GOLD classification Tobacco abuse Unintentional weight loss Home Medications cholecalciferol (vitamin D3) 50 mcg (2,000 unit) capsule 50 mcg PO DAILY SUPPLEMENT 12/29/18 [History Last Taken 10/31/22] pantoprazole 40 mg tablet,delayed release 40 mg PO DAILY GERD 08/12/20 [History Last Taken 10/31/22] albuterol sulfate 90 mcg/actuation aerosol inhaler (Ventolin HFA) 2 puff inhalation Q4H PRN shortness of breath or wheezing #18 grams 11/14/20 [Rx Last Taken Unknown] aripiprazole 5 mg tablet (Abilify) 5 mg PO DAILY mood 01/22/21 [History Last Taken 10/31/22] hydroxyzine pamoate 25 mg capsule 25 mg PO Q6H PRN PRN Itching 06/12/21 [History Last Taken 10/31/22] mirtazapine 45 mg tablet 45 mg PO QHS sleep 01/16/22 [History Last Taken 10/31/22] amlodipine 2.5 mg tablet 2.5 mg PO DAILY BP 11/01/22 [History Last Taken Unknown] [id number] 24,000-76,000-120,000 unit capsule,delayed rel (Creon) 1 cap PO TIDCM Check with primary doctor 11/01/22 [History Last Taken 10/31/22] loperamide 2 mg capsule 2 mg PO Q4H PRN PRN Diarrhea 11/01/22 [History Last Taken Unknown] simvastatin 20 mg tablet 20 mg PO QHS cholesterol 11/01/22 [History Last Taken 10/31/22] tramadol 50 mg tablet 50 mg PO Q6H PRN pain #7 tabs 06/02/23 [Rx Last Taken Unk nown] fluticasone fur. 100 mcg-umeclid 62.5 mcg-vilant 25 mcg inhalat.powder (Trelegy Ellipta) 1 inh inhalation Q24H 06/30/23 [History Last Taken Unknown] doxycycline monohydrate 100 mg capsule 100 mg PO BID #20 CAPSULES 07/08/23 [Rx Last Taken Unknown] oxycodone 5 mg tablet 5 mg PO Q8H PRN pain 1 day #3 tabs 07/08/23 [Rx Last Taken Unknown] prednisone 20 mg tablet 40 mg (2 x 20 mg) PO DAILY #8 tabs 07/08/23 [Rx Last Taken Unknown] Allergy/AdvReac Type Severity Reaction Status Date / Time Penicillins Allergy Hives Verified 07/08/23 18:11 sulfamethoxazole Allergy Other Verified 07/08/23 18:11 [From Bactrim] trimethoprim [From Bactrim] Allergy Other Verified 07/08/23 18:11 hydrocodone [From [place]] AdvReac Itching Verified 07/08/23 18:11 Family History Mother Diabetes Hypertension Heart disease High cholesterol Arthritis Thyroid disorder Brother Hypertension Sister Cancer cervical Thyroid disorder Father Kidney disease Daughter Thyroid disorder Surgical History History of appendectomy History of colonoscopy History of tubal ligation Social History Smoking Status: Current every day smoker tobacco type: cigarettes Tobacco: How many years used: 30 second hand exposure: Yes alcohol intake: current alcohol intake frequency: 3 or more drinks per day Alcohol type: beer substance use type: does not use caffeine: Yes ROS ROS ED Constitutional Constitutional ED: Denies chills or fever(s) Eyes Eyes: Denies change in vision or discharge from eye(s) ENT ENT ED: Denies discharge from eye(s), rhinorrhea or sore throat Cardiovascular Cardiovascular: Reports chest pain; Denies palpitations Respiratory/Chest Respiratory/Chest: Reports cough, dyspnea and sputum Gastrointestinal Gastrointestinal: Reports abdominal pain; Denies diarrhea, nausea or vomiting Genitourinary Genitourinary ED: Denies difficulty urinating or dysuria Musculoskeletal Musculoskeletal: Denies back pain or extremity pain Integumentary Denies Abrasions or rash Neurologic Neurologic: Denies headache(s) or weakness Psychiatric Psychiatric: Denies anxiety or depression Allergic/Immunologic Allergic/Immunologic ED: Denies lip swelling or urticaria EXAM Physical Exam Narrative Exam Narrative: Patient in no acute distress and speaking full sentences. Const Vital Signs: 07/08/23 18:11 07/08/23 18:10 07/08/23 18:57 Temperature 98.1 F Temperature Source Temporal Pulse Rate 106 H 103 H Respiratory Rate 21 H 20 H Respiratory Effort Short of Breath Respiratory Depth Normal Respiratory Pattern Normal Normal Blood Pressure 149/99 H Blood Pressure Mean 115 Pulse Ox 91 Oxygen Delivery Method Room Air Room Air Positive well nourished and well developed General Appearance ED: well developed HEENT Reports moist mucous membranes Eyes EOMs intact bilaterally Chest Wall inspection of chest normal and palpation of chest normal Resp Resp Narrative: Expiratory wheezes bilaterally. Cardio regular rate and regular rhythm GI non-tender Palpation: soft Extremity normal to inspection Neuro oriented x3 and no sensory deficits noted Motor Exam: strength 5/5 throughout Psych mental status grossly normal Skin no rashes or lesions noted MDM MDM MDM Narrative Medical decision making narrative: Swab for COVID and influenza sent. Two-view chest x-ray obtained to evaluate for possible infiltrate. Patient given a dose of oxycodone for pain along with prednisone for her wheezing. DuoNeb treatment and 2 albuterol aerosols given. Radiography Diagnostic Testing: Clinical Impression(s) from Imaging Studies Chest X-Ray 07/08/23 19:34 IMPRESSION: Minimal bilateral basilar atelectasis. Otherwise no acute cardiopulmonary disease. Electronically Signed: Autumn Davis MD at 19:54 EDT , Treatment and Re-Evaluation :: On repeat examination patient resting comfortably. She still has wheezes noted bilateral but they are improved. Two-view chest x-ray per my interpretation was chronic changes with no evidence of infiltrate. Radiology interpretation reviewed and agrees. COVID and influenza swab is negative. Given the patient's underlying COPD should be discharged with prednisone and doxycycline. I will write her 3 tabs of pain medicine to help with her musculoskeletal pain. Return instructions given. Discharge Plan Triage Chief Complaint: Shortness of Breath ED Provider: Tasneem Dykes Dx/Rx/DC Orders Clinical Impression: COPD exacerbation Instructions: ED COPD Flare Prescriptions: New prednisone 20 mg tablet 40 mg PO DAILY Qty: 8 0RF oxycodone 5 mg tablet 5 mg PO Q8H PRN (Reason: pain) 1 Days Qty: 3 0RF doxycycline monohydrate 100 mg capsule 100 mg PO BID Qty: 20 0RF No Action albuterol sulfate [Ventolin HFA] 90 mcg/actuation HFA aerosol inhaler 2 puff INHALATION Q4H PRN (Reason: shortness of breath or wheezing) Qty: 18 6RF mirtazapine 45 mg tablet 45 mg PO QHS Trelegy Ellipta 100-62.5-25 mcg blister with device 1 inh inhalation Q24H cholecalciferol (vitamin D3) 2,000 UNIT capsule 50 mcg PO DAILY pantoprazole 40 MG tablet 40 mg PO DAILY aripiprazole [Abilify] 5 mg Tablet 5 mg PO DAILY hydroxyzine pamoate 25 mg Capsule 25 mg PO Q6H PRN PRN (Reason: Itching) Creon 24,000-76,000 -120,000 unit capsule,delayed release(DR/EC) 1 cap PO TIDCM loperamide 2 mg capsule 2 mg PO Q4H PRN PRN (Reason: Diarrhea) amlodipine 2.5 mg tablet 2.5 mg PO DAILY simvastatin 20 mg tablet 20 mg PO QHS tramadol 50 mg tablet 50 mg PO Q6H PRN (Reason: pain) Qty: 7 0RF Primary Care Provider: JENNIFER NATARAJAN Referrals: Gonzalo Sebastian DO [Med Staff - Active Staff] - 1 Week if not improving JENNIFER NATARAJAN [employer] [Primary Care Provider] - Disposition Disposition: Home, Self Care
[2023-07-08 18:57] VITALS: PULSE 103; RESP 20
[2023-07-08] MEDS: predniSONE 20 MG Tablet 60 MG PO (18:57)
[2023-07-08] MEDS: Albuterol 2.5 MG/3 ML VIAL.NEB. INHALATION ×2 (18:57→19:09)
[2023-07-08] MEDS: Ipratropium/Albuterol Sulfate 3 ML AMPUL.NEB INHALATION (18:57)
[2023-07-08] MEDS: oxyCODONE 5 MG Tablet PO (18:57)
--- NOTE | 2023-07-08 19:34 | RAD_ITS ---
STUDY: X-RAY CHEST REASON FOR EXAM: Female, 58 years old. sob TECHNIQUE: PA and lateral views of the chest. COMPARISON: 06/02/2023. FINDINGS: The lungs are well expanded with minimal bilateral basilar atelectasis, otherwise clear. There is no demonstrated pleural abnormality. Normal size heart. Normal mediastinum and [place]. Normal visualized pulmonary arteries. There is atherosclerotic calcification of the aortic arch with tortuosity. There are diffuse degenerative changes of the visualized thoracic spine. Normal visualized ribs, clavicles, and shoulders. There is no demonstrated abnormality of the visualized soft tissue structures of the upper abdomen. RAD/Chest PA and Lateral IMPRESSION: Minimal bilateral basilar atelectasis. Otherwise no acute cardiopulmonary disease. Electronically Signed: Autumn Davis MD at 19:54 EDT ,
--- NOTE | 2023-07-08 19:40 | CPS ---
x2 Albuterol given to pt. in ER as well
[2023-07-08 20:38] VITALS: BP 150/68; RESP 20; O2SAT 97
[2023-07-08] MEDS: Doxycycline 100 MG CAPSULE PO (20:41)
== END 2023-07-08 20:42 | disposition home or self-care (01) ==
PROVIDERS: Emergency Provider Emergency Medicine; PCP Nurse Practitioner; Visit Provider Emergency Medicine
DX: J44.1 Chronic obstructive pulmonary disease with (acute) exacerbation (principal); F17.210 Nicotine dependence, cigarettes, uncomplicated; M25.511 Pain in right shoulder; M25.512 Pain in left shoulder; I10 Essential (primary) hypertension; J45.909 Unspecified asthma, uncomplicated
CPT/HCPCS: 71046; 87428; 94640; 99282

== ENCOUNTER 2024-01-02 18:56 | Inpatient (IN) | payer MEDICAID, SELFPAY ==
[2024-01-02] VITALS (25 sets, daily range): BP systolic 102–145; BP diastolic 78–117; PULSE 107–127; RESP 16–42; TEMP 36.3–37.1; O2SAT 88–95; BMI 23.9; BMI 24.3
--- NOTE | 2024-01-02 19:16 | RAD_ITS ---
INDICATION: dyspnea EXAMINATION/TECHNIQUE: X-RAY - portable upright AP chest x-ray COMPARISON: None. FINDINGS: LINES/DEVICES: None. LUNGS: No consolidation, edema or effusion. No pneumothorax. MEDIASTINUM AND CARDIOVASCULAR STRUCTURES: Cardiac silhouette within normal limits. BONES AND SOFT TISSUES: No acute findings. RAD/Chest 1 View (Portable) IMPRESSION: No radiographic evidence of acute cardiopulmonary disease. Electronically Signed: Jeff Thakkar MD at 20:22 EDT ,
--- NOTE | 2024-01-02 19:16 | EKG12_ITS ---
Test Reason : SOB Blood Pressure : / mmHG Vent. Rate : 111 BPM Atrial Rate : 111 BPM P-R Int : 164 ms QRS Dur : 072 ms QT Int : 328 ms P-R-T Axes : 059 078 070 degrees QTc Int : 446 ms Sinus tachycardia Nonspecific ST abnormality Abnormal ECG Confirmed by Nima Cotter ([id number]), deputy editor in chief CATHERINE PIERCE ([id number]) on 01/04/2024 10:51:28 AM Referred By: Confirmed By:Nima Cotter
--- NOTE | 2024-01-02 19:18 | ED.VIS.DYS ---
HPI History of Present Illness Chief Complaint: Shortness of Breath Informant: patient Narrative Narrative: 58-year-old female presenting to the emergency room with a chief complaint of shortness of breath. Patient has a history of COPD with as needed oxygen at home. She states that 2 to 3 weeks ago she began to have viral URI-like symptoms. For about a week now she feels that the cough has worsened and she now feels fluid in her chest. She notes chest soreness. She states she has been waking up at night with sweats and feeling feverish. She notes some associated diarrhea. Cough is mildly productive. She sees Dr. Perdue for pulmonology. She states over the past week she has put herself back on oxygen. She did have emesis earlier today. Patient notes anterior chest pain that is worse with cough and movement particularly at the right lower lung sherman and she states that she has had that before with pneumonia. [facility] Medical History (Updated 01/02/24 @ 22:[address] Carin Meraz MD) Anemia Anxiety and depression Arthritis Asthma Benign hypertension Chronic pancreatitis COPD (chronic obstructive pulmonary disease) GERD (gastroesophageal reflux disease) History of alcohol abuse History of back problems HLD (hyperlipidemia) HPV (human papilloma virus) infection Stage 3 severe COPD by GOLD classification Tobacco abuse Home Medications cholecalciferol (vitamin D3) 50 mcg (2,000 unit) capsule 50 mcg PO DAILY SUPPLEMENT 12/29/18 [History Last Taken 10/31/22] pantoprazole 40 mg tablet,delayed release 40 mg PO DAILY GERD 08/12/20 [History Last Taken 10/31/22] albuterol sulfate 90 mcg/actuation aerosol inhaler (Ventolin HFA) 2 puff inhalation Q4H PRN shortness of breath or wheezing #18 grams 11/14/20 [Rx Last Taken Unknown] aripiprazole 5 mg tablet (Abilify) 5 mg PO DAILY mood 01/22/21 [History Last Taken 10/31/22] hydroxyzine pamoate 25 mg capsule 25 mg PO Q6H PRN PRN Itching 06/12/21 [History Last Taken 10/31/22] mirtazapine 45 mg tablet 45 mg PO QHS sleep 01/16/22 [History Last Taken 10/31/22] amlodipine 2.5 mg tablet 2.5 mg PO DAILY BP 11/01/22 [History Last Taken Unknown] fzbcoe-tolfwgbr-iyrxjyj 24,000-76,000-120,000 unit capsule,delayed rel (Creon) 1 cap PO TIDCM Check with primary doctor 11/01/22 [History Last Taken 10/31/22] loperamide 2 mg capsule 2 mg PO Q4H PRN PRN Diarrhea 11/01/22 [History Last Taken Unknown] simvastatin 20 mg tablet 20 mg PO QHS cholesterol 11/01/22 [History Last Taken 10/31/22] tramadol 50 mg tablet 50 mg PO Q6H PRN pain #7 tabs 06/02/23 [Rx Last Taken Unknown] fluticasone fur. 100 mcg-umeclid 62.5 mcg-vilant 25 mcg inhalat.powder (Trelegy Ellipta) 1 inh inhalation Q24H 06/30/23 [History Last Taken Unknown] doxycycline monohydrate 100 mg capsule 100 mg PO BID #20 CAPSULES 07/08/23 [Rx Last Taken Unknown] oxycodone 5 mg tablet 5 mg PO Q8H PRN pain 1 day #3 tabs 07/08/23 [Rx Last Taken Unknown] prednisone 20 mg tablet 40 mg (2 x 20 mg) PO DAILY #8 tabs 07/08/23 [Rx Last Taken Unknown] Allergy/AdvReac Type Severity Reaction Status Date / Time Penicillins Allergy Hives Verified 01/02/24 18:59 sulfamethoxazole Allergy Other Verified 01/02/24 18:59 [From Bactrim] trimethoprim [From Bactrim] Allergy Other Verified 01/02/24 18:59 hydrocodone [From [place]] AdvReac Itching Verified 01/02/24 18:59 Family History Mother Diabetes Hypertension Heart disease High cholesterol Arthritis Thyroid disorder Brother Hypertension Sister Cancer cervical Thyroid disorder Father Kidney disease Daughter Thyroid disorder Surgical History History of appendectomy History of colonoscopy History of tubal ligation Social History household members: none Smoking Status: Current every day smoker tobacco type: cigarettes Tobacco: How many years used: 30 second hand exposure: Yes alcohol intake: former substance use type: does not use caffeine: Yes ROS ROS ED Constitutional Constitutional ED: Reports chills, fever(s) and sweats; Denies weight loss Eyes Eyes: Denies change in vision or diplopia ENT ENT ED: Reports rhinorrhea; Denies ear pain or sore throat Cardiovascular Cardiovascular: Reports chest pain and racing heartbeat; Denies orthopnea or palpitations Respiratory/Chest Respiratory/Chest: Reports cough, dyspnea and dyspnea on exertion; Denies orthopnea Gastrointestinal Gastrointestinal: Reports diarrhea, nausea and vomiting; Denies abdominal pain Genitourinary Genitourinary ED: Denies dysuria, hematuria or urinary frequency Musculoskeletal Musculoskeletal: Reports myalgias; Denies arthralgias Integumentary Denies abscess or rash Neurologic Neurologic: Denies headache(s) or weakness Psychiatric Psychiatric: Denies anxiety, depression, suicidal ideation or suicidal thoughts Endocrine Endocrinology: Denies polydipsia, polyphagia or polyuria Allergic/Immunologic Allergic/Immunologic ED: Denies mouth swelling, tongue swelling or urticaria EXAM Physical Exam Narrative Exam Narrative: Patient is sitting forward in the bed. Not quite in a full tripod position. She has audible rhonchi and wheezes. Const Vital Signs: 01/02/24 18:57 01/02/24 18:57 01/02/24 18:59 Temperature 98.1 F 98.1 F 98.1 F Temperature Source Temporal Temporal Oral Pulse Rate 120 H 120 H 116 H Respiratory Rate 24 H 24 H 21 H Respiratory Effort Respiratory Depth Respiratory Pattern Blood Pressure 126/93 H 126/93 H 130/96 H Blood Pressure Mean 104 104 107 Pulse Ox 90 90 93 Oxygen Delivery Method Room Air Room Air Room Air Oxygen Flow Rate (L/min) 01/02/24 19:23 01/02/24 19:16 01/02/24 19:59 Temperature 97.8 F Temperature Source Oral Pulse Rate 115 H Respiratory Rate 32 H Respiratory Effort Short of Breath Respiratory Depth Shallow Respiratory Pattern Normal Blood Pressure 130/96 H Blood Pressure Mean 107 Pulse Ox 93 Oxygen Delivery Method Room Air Nasal Cannula Nasal Cannula Oxygen Flow Rate (L/min) 2 2 01/02/24 21:00 01/02/24 19:40 01/02/24 20:17 Temperature 98.8 F Temperature Source Oral Pulse Rate 127 H 122 H Respiratory Rate 26 H 24 H Respiratory Effort Respiratory Depth Respiratory Pattern Tachypnea Blood Pressure 135/84 H Blood Pressure Mean 101 Pulse Ox 93 93 Oxygen Delivery Method Nasal Cannula Nasal Cannula Oxygen Flow Rate (L/min) 2 2 01/02/24 19:21 01/02/24 19:30 01/02/24 19:45 Temperature Temperature Source Pulse Rate 115 H 111 H Respiratory Rate 32 H 25 H Respiratory Effort Respiratory Depth Respiratory Pattern Blood Pressure 130/96 H 136/117 H Blood Pressure Mean 104 124 Pulse Ox 88 90 90 Oxygen Delivery Method Oxygen Flow Rate (L/min) 01/02/24 19:46 01/02/24 20:00 01/02/24 20:15 Temperature Temperature Source Pulse Rate 120 H 123 H Respiratory Rate 31 H 32 H Respiratory Effort Respiratory Depth Respiratory Pattern Blood Pressure 132/78 H 123/89 H Blood Pressure Mean 96 98 Pulse Ox 93 93 95 Oxygen Delivery Method Oxygen Flow Rate (L/min) 2 01/02/24 20:16 01/02/24 20:30 01/02/24 20:45 Temperature Temperature Source Pulse Rate 123 H 121 H Respiratory Rate 32 H 27 H Respiratory Effort Respiratory Depth Respiratory Pattern Blood Pressure 132/97 H 145/94 H 126/89 H Blood Pressure Mean 108 109 101 Pulse Ox 95 94 Oxygen Delivery Method Oxygen Flow Rate (L/min) 01/02/24 21:01 01/02/24 21:03 01/02/24 21:15 Temperature Temperature Source Pulse Rate 125 H Respiratory Rate 42 H Respiratory Effort Respiratory Depth Respiratory Pattern Blood Pressure 104/88 H 126/99 H Blood Pressure Mean 93 108 Pulse Ox Oxygen Delivery Method Oxygen Flow Rate (L/min) 01/02/24 21:30 01/02/24 21:45 Temperature Temperature Source Pulse Rate 117 H 127 H Respiratory Rate 39 H 26 H Respiratory Effort Respiratory Depth Respiratory Pattern Blood Pressure 143/94 H 135/84 H Blood Pressure Mean 110 99 Pulse Ox 92 Oxygen Delivery Method Oxygen Flow Rate (L/min) Positive well nourished and well developed General Appearance ED: well developed HEENT Reports normocephalic, head/scalp atraumatic and moist mucous membranes Eyes PERRL and EOMs intact bilaterally Neck no lymphadenopathy, supple and no JVD Chest Wall Chest Narrative: Chest wall TTP Resp Resp Narrative: Tachypnea Auscultation: rhonchi and wheezes Cardio regular rate, regular rhythm and no murmurs Rate: tachycardic GI normal to inspection, nondistended, normoactive bowel sounds and non-tender Palpation: soft Back/Spine no CVA tenderness and normal ROM Extremity normal to inspection General Extremety ED: Negative for edema General Extremity: Negative for edema Neuro oriented x3 and CN's II-XII intact bilaterally Sensorium / Orientation: alert Motor Exam: strength 5/5 throughout Psych mental status grossly normal Mood & Affect: Negative for depressed or tearful Skin no wounds Skin Narrative: There is a slightly erythematous rash over the medial aspect of the left forearm starting from just inferior to the elbow about 8 cm inferiorly and about 5 cm wide. No increased warmth. No discrete lesions. MDM MDM MDM Narrative Medical decision making narrative: My independent interpretation of the single view chest x-ray is no pneumothorax, no consolidation, no large pleural effusion. ABG shows a pH of 7.415 pCO2 of 32.2 pO2 62.3 bicarb of 20.7. This was on room air presumed FiO2 of 21% White count returned significantly elevated 25.7 with 81.7 neutrophils. INR 1.1 PTT 32.2 BMP within normal limits except for glucose of 126 sodium 133 initial troponin 13. Lactic acid is normal. Liver panel within normal limits except for slightly elevated alkaline phosphatase. Patient continued to be tachycardic and tachypneic requiring supplemental oxygen despite breathing treatments. Therefore a CTA of the chest was obtained to rule out pulmonary embolism. No pulmonary embolism was noted. Noted to be patchy infiltrates in the right middle and right upper lobe posteriorly. Therefore Rocephin and azithromycin were administered after blood cultures. Patient notes her pain is significantly improved with Toradol Plan will be admission into the hospital. History & Record Review Discussion w/independent historian: Patient Additional record(s) reviewed:: Prior inpatient record, Prior ED visit and Prior labs Lab Data Attestation: I reviewed the patient's lab results. Labs: Laboratory Results - last 24 hr 01/02/24 01/02/24 01/02/24 19:25 19:33 20:35 WBC 25.7 H RBC 4.99 Hgb 12.9 Hct 41.5 MCV 83.2 MCH 25.9 L MCHC 31.1 L RDW Std Deviation 47.1 H RDW Coeff of Min 15.6 H Plt Count 311 MPV 9.8 Immature Gran % (Auto) 0.800 Neut % (Auto) 81.7 H Lymph % (Auto) 9.6 L Williamson % (Auto) 6.9 Eos % (Auto) 0.6 Baso % (Auto) 0.4 Absolute Neuts (auto) 21.0 H Absolute Lymphs (auto) 2.46 Nucleated RBC % 0 Differential Comment SCANNED Diff Path Review January foll PT 14.5 INR 1.1 APTT 32.2 Sodium 133 L Potassium 3.9 Chloride 101 Carbon Dioxide 25.0 Anion Gap 7 BUN 14 Creatinine 0.96 Estim Creat Clear Calc 51.55 Est GFR (MDRD) Af Amer 77 Est GFR (MDRD) Non-Af 63 BUN/Creatinine Ratio 14.7 Glucose 126 H Lactic Acid 1.2 Calcium 8.9 Total Bilirubin 0.30 Direct Bilirubin 0.13 AST 14 L ALT 13 Alkaline Phosphatase 148 H Troponin I High Sens 13 B-Natriuretic Peptide 75.1 Total Protein 8.3 H Albumin 3.2 Globulin 5.1 H ABG Data ABG results: ABG 01/02/24 20:06 Specimen Type ART Sample Site R Radial pH 7.42 Bicarbonate Actual 20.7 L Total CO2 22 Base Excess -4 L O2 Saturation 92 L O2 % 21.0 ABG pCO2 32.2 L ABG pO2 62 L Alexis Test Positive O2 Delivery Device Room Air Vent Mode Not entered Radiography Diagnostic Testing: Clinical Impression(s) from Imaging Studies Chest X-Ray 01/02/24 19:16 IMPRESSION: No radiographic evidence of acute cardiopulmonary disease. Electronically Signed: Jeff Thakkar MD at 20:22 EDT , Chest CTA 01/02/24 20:13 IMPRESSION: Normal CTA chest examination, without a demonstrated pulmonary embolism or arterial dissection. Right middle and upper lobe infiltrates consistent with pneumonia. Electronically Signed: Jeff Thakkar MD at 21:39 EDT , EKG Initial EKG: Attestation: I personally reviewed and interpreted this EKG as follows: Comments: Sinus tachycardia with a ventricular rate of 111 bpm. Prior EKG tracings: available for review Prior: Unchanged Management Discussion w/another healthcare provider: Hospitalist Discharge Plan Dx/Rx/DC Orders Clinical Impression: Acute on chronic hypoxic respiratory failure, COPD (chronic obstructive pulmonary disease), Pneumonia Disposition Disposition: Acute Care Hospital [facility]
[2024-01-02] MEDS: Ipratropium/Albuterol Sulfate 3 ML AMPUL.NEB INHALATION (19:39)
[2024-01-02] MEDS: Albuterol 2.5 MG/3 ML VIAL.NEB. INHALATION ×3 (19:39)
[2024-01-02 19:43] LABS: Absolute Lymphocyte Count 2.46 X10^3/uL (0.83-4.51); Basophil# 0.09 X10^3/uL; Basophil% 0.4 % (0-1); Eosinophil# 0.16 X10^3/uL; Eosinophils% 0.6 % (0-5); Hematocrit 41.5 % (37-47); Hemoglobin 12.9 g/dL (12.0-15.0); Lymphocyte # 2.46 X10^3/ul (0.83-4.51); Lymphocyte % 9.6 % (19-41); Mean Corp Hgb Conc 31.1 g/dL (32-36); Mean Corpuscular Hgb 25.9 pg (27.0-32.0); Mean Corpuscular Volume 83.2 fL (81-99); Mean Platelet Vol. 9.8 fl (6.2-12.0); Monocyte# 1.77 X10^3/uL; Monocyte% 6.9 % (0-10); NRBC Flagged by Analyzer 0 % (0-5); Neutrophil # 20.97 X10^3/uL (2.7-7.7); Neutrophil % 81.7 % (47-70); POSITIVE DIFFERENTIAL YES; Platelet Count 311 K/mm3 (150-450); RBC Distribution Width CV 15.6 % (11.6-14.6); RBC Distribution Width SD 47.1 fl (35.1-43.9); Red Blood Count 4.99 M/mm3 (4.2-5.4); White Blood Count 25.7 K/mm3 (4.4-11.0)
[2024-01-02] MEDS: MethylPREDNISolone 125 MG/2 ML Vial 60 MG IV (20:01)
[2024-01-02 20:05] LABS: Anion Gap 7 (5-15); BUN 14 mg/dL (7-18); BUN/Creat Ratio 14.7 RATIO (10-20); Calcium,Total 8.9 mg/dL (8.5-10.1); Chloride 101 mmol/L (98-107); Creatinine, Serum 0.96 mg/dL (0.55-1.02); EST Glomerular Filtration Rate 63 mL/min (>60); Est Glom Filt Rate - Afr Amer 77 mL/min (>60); Estimated Creatinine Clearance 51.55 ml/min; Glucose 126 mg/dL (74-106); Potassium 3.9 mmol/L (3.5-5.1); Sodium Level 133 mmol/L (136-145); Troponin-I HS 13 pg/mL (3.0-54.0)
[2024-01-02 20:08] LABS: Differential Indicated SCAN CRITERIA MET
[2024-01-02 20:10] LABS: Allen Test Positive; Base Excess -4 mmol/L (-2 to +2); Bicarbonate 20.7 mmol/L (22-26); Blood Gas Specimen Type ART; Mode Not entered; O2 Delivery Device Room Air; PO2 62 mmHG (75-100); SITE R Radial; SO2 92 % (95-99); Total Carbon Dioxide 22 mmol/L; pCO2 32.2 mmHg (35-45); pH 7.42 (7.35-7.45)
--- NOTE | 2024-01-02 20:13 | CT_ITS ---
STUDY: CTA CHEST REASON FOR EXAM: Female, 58 years old. Dyspnea RADIATION DOSAGE (If Supplied By Facility): CTDIvol = ( 9.6 ) mGy, DLP = ( 315.44 ) mGycm TECHNIQUE: The examination was performed with the intravenous administration of 75mL Isovue-370. Post-processing of the angiographic images was performed, with multiplanar reformation and 3D reconstruction. Individualized dose optimization techniques were used for this CT. COMPARISON: 05/10/2020 FINDINGS: Normal enhancement of the main pulmonary artery and right and left pulmonary arteries. Normal enhancement of the bilateral peripheral pulmonary arteries. There is no demonstrated pulmonary embolism. Normal thoracic aorta and visualized great vessels. There is no demonstrated aortic dissection. Normal heart and pericardium. Normal mediastinum. Normal hilar regions. Patchy infiltrates predominantly in the right middle lobe with scant involvement of the right upper lobe posteriorly. No consolidations or mass lesions. Diffuse pulmonary emphysema similar prior study. No pleural effusions. Normal chest wall structures. No acute or aggressive osseous abnormality. No acute findings in the upper abdomen. CT/CTA Chest W/WO Contrast IMPRESSION: Normal CTA chest examination, without a demonstrated pulmonary embolism or arterial dissection. Right middle and upper lobe infiltrates consistent with pneumonia. Electronically Signed: Jeff Thakkar MD at 21:39 EDT ,
[2024-01-02 20:32] LABS: Differential Comment SCANNED
[2024-01-02 20:34] LABS: International Normalized Ratio 1.1; Prothrombin Time (Protime)PT. 14.5 SECONDS (11.7-14.9)
[2024-01-02 20:35] LABS: Partial Thromboplast Time 32.2 Seconds (24.1-36.2)
[2024-01-02 20:42] LABS: BNP,B-Type NATRIURETIC PEPTIDE 75.1 pg/mL (0-100)
[2024-01-02] MEDS: 0.9% Normal Saline (1000mL) 1,000 ML 999 ML IV (20:42)
[2024-01-02 20:43] LABS: AST(SGOT) 14 U/L (15-37); Alanine Aminotransfer ALT/SGPT 13 U/L (13-56); Albumin, Serum 3.2 g/dL (3.2-5.0); Alkaline Phosphatase 148 U/L (45-117); Bilirubin, Direct 0.13 mg/dL (0.00-0.30); Globulin 5.1 g/dL (2.2-4.2); Protein, Total 8.3 g/dL (6.4-8.2)
[2024-01-02 21:21] LABS: Lactic Acid 1.2 mmol/L (0.4-1.9)
[2024-01-02] MEDS: Ketorolac 30 MG/ML Syringe IV (21:42)
--- NOTE | 2024-01-02 22:08 | PCM.HP.STD ---
HPI - General General Date of Admission: 01/02/24 Date of Service: 01/02/24 Chief Complaint: URI sxs, cough, dyspnea, worsening. HPI Narrative The patient is a 58 y/o F w/ PMHx: EtOH abuse, Tobacco use, COPD/Asthma w/ Chronic Hypoxic Respiratory Failure (PRN), HTN, HLD, Chronic anemia, Anxiety and Depression, Chronic pancreatitis associated with EtOH abuse who presents to the [facility] ED on 01/02/24 with history of onset of viral upper respiratory type symptoms starting 2 to 3 weeks prior to current presentation with now worsening cough which is moist and productive with subjective fevers and diaphoresis in addition to loose stools with worsening dyspnea placing her self back on supplemental oxygen with generalized pleuritic chest discomfort worse with coughing with movement in addition to nausea and an bout of emesis on day of presentation prompting eventual ED evaluation. Patient follows with pulmonary medicine Dr. Perdue. Workup in the ED included T98.1, heart rate 120, BP 126/93, respiratory rate 24, 90% on room air, CBC with WBC 25.7, hemoglobin 12.9, platelet 311 with left shift, unremarkable coags, BMP with sodium 133, glucose 126 otherwise unremarkable, troponin 13, chest x-ray with no acute cardiopulmonary findings, blood culture x 2 pending per ED, rapid SARS COVID/influenza/RSV PCR negative, ABG with pH 7.42, bicarb 20.7, pCO2 32.2, pO2 62, CTPA with no demonstrated PE or arterial dissection, right middle and upper lobe infiltrates consistent with pneumonia, Lactic acid 1.2, EKG with sinus tachycardia with no acute evidence of ischemia. In the ED patient ministered 1 L normal saline, DuoNeb therapy, Toradol 30 mg IV x 1, Solu-Medrol 60 mg IV x 1, azithromycin 500 mg IV x 1, Rocephin 1 g IV x 1. [facility] Medical History Anemia Anxiety and depression Arthritis Asthma Benign hypertension Chronic pancreatitis COPD (chronic obstructive pulmonary disease) GERD (gastroesophageal reflux disease) History of alcohol abuse History of back problems HLD (hyperlipidemia) HPV (human papilloma virus) infection Stage 3 severe COPD by GOLD classification Tobacco abuse Home Medications cholecalciferol (vitamin D3) 50 mcg (2,000 unit) capsule 50 mcg PO DAILY SUPPLEMENT 12/29/18 [History Last Taken 10/31/22] pantoprazole 40 mg tablet,delayed release 40 mg PO DAILY GERD 08/12/20 [History Last Taken 10/31/22] albuterol sulfate 90 mcg/actuation aerosol inhaler (Ventolin HFA) 2 puff inhalation Q4H PRN shortness of breath or wheezing #18 grams 11/14/20 [Rx Last Taken Unknown] aripiprazole 5 mg tablet (Abilify) 5 mg PO DAILY mood 01/22/21 [History Last Taken 10/31/22] hydroxyzine pamoate 25 mg capsule 25 mg PO Q6H PRN PRN Itching 06/12/21 [History Last Taken 10/31/22] mirtazapine 45 mg tablet 45 mg PO QHS sleep 01/16/22 [History Last Taken 10/31/22] amlodipine 2.5 mg tablet 2.5 mg PO DAILY BP 11/01/22 [History Last Taken Unknown] rxxhzv-jekulqgg-ufaqtah 24,000-76,000-120,000 unit capsule,delayed rel (Creon) 1 cap PO TIDCM Check with primary doctor 11/01/22 [History Last Taken 10/31/22] loperamide 2 mg capsule 2 mg PO Q4H PRN PRN Diarrhea 11/01/22 [History Last Taken Unknown] simvastatin 20 mg tablet 20 mg PO QHS cholesterol 11/01/22 [History Last Taken 10/31/22] tramadol 50 mg tablet 50 mg PO Q6H PRN pain #7 tabs 06/02/23 [Rx Last Taken Unknown] fluticasone fur. 100 mcg-umeclid 62.5 mcg-vilant 25 mcg inhalat.powder (Trelegy Ellipta) 1 inh inhalation Q24H 06/30/23 [History Last Taken Unknown] doxycycline monohydrate 100 mg capsule 100 mg PO BID #20 CAPSULES 07/08/23 [Rx Last Taken Unknown] oxycodone 5 mg tablet 5 mg PO Q8H PRN pain 1 day #3 tabs 07/08/23 [Rx Last Taken Unknown] prednisone 20 mg tablet 40 mg (2 x 20 mg) PO DAILY #8 tabs 07/08/23 [Rx Last Taken Unknown] Allergy/AdvReac Type Severity Reaction Status Date / Time clindamycin Allergy Intermediate Hives Verified 01/02/24 22:38 Penicillins Allergy Hives Verified 01/02/24 18:59 sulfamethoxazole Allergy Other Verified 01/02/24 18:59 [From Bactrim] trimethoprim [From Bactrim] Allergy Other Verified 01/02/24 18:59 hydrocodone [From [place]] AdvReac Itching Verified 01/02/24 18:59 Family History Mother Diabetes Hypertension Heart disease High cholesterol Arthritis Thyroid disorder Brother Hypertension Sister Cancer cervical Thyroid disorder Father Kidney disease Daughter Thyroid disorder Surgical History History of appendectomy History of colonoscopy History of tubal ligation Social History (Updated 01/02/24 @ 22:[address] Carin Meraz MD) household members: family Smoking Status: Current every day smoker tobacco type: cigarettes Smoking packs per day: 1 Smoking cigarettes per day: 20.0 Tobacco: How many years used: 30 second hand exposure: Yes alcohol intake: former details: Sober since 2020. substance use type: does not use caffeine: Yes ROS ROS Narrative Admission Review of Systems: CONSTITUTIONAL: No weight loss, fever, chills, + weakness or fatigue. HEENT: + Congestion, rhinorrhea. Eyes: No visual loss, blurred vision, double vision or yellow sclerae. Ears, Nose, Throat: No hearing loss, sneezing. SKIN: No rash or itching, lesions, wounds. CARDIOVASCULAR: + Pleuritic chest discomfort. No palpitations, edema, orthopnea, syncopal events. RESPIRATORY: Dyspnea, cough with productive sputum, wheezing. No hemoptysis. GASTROINTESTINAL: + Anorexia, nausea, emesis, loose stools. No abdominal pain, melena, BRBPR. GENITOURINARY: No dysuria, frequency, urgency or retention. NEUROLOGICAL: No headache, dizziness, syncope, paralysis, ataxia, numbness or tingling in the extremities, focal weakness, change in bowel or bladder control, seizure. MUSCULOSKELETAL: + muscle, back pain, joint pain or stiffness. HEMATOLOGIC: + History of anemia. No bleeding or bruising. LYMPHATICS: No enlarged nodes. No history of splenectomy. PSYCHIATRIC: + History of anxiety and depression. ENDOCRINOLOGIC: + reports of sweating, cold or heat intolerance. No polyuria or polydipsia. ALLERGIES: + History of asthma, allergic rhinitis. Vital Signs Vital Signs Vital Signs: 01/02/24 18:57 01/02/24 18:57 01/02/24 18:59 Temperature 98.1 F 98.1 F 98.1 F Temperature Source Temporal Temporal Oral Pulse Rate 120 H 120 H 116 H Respiratory Rate 24 H 24 H 21 H Respiratory Effort Respiratory Depth Respiratory Pattern Blood Pressure 126/93 H 126/93 H 130/96 H Blood Pressure Mean 104 104 107 Pulse Ox 90 90 93 Oxygen Delivery Method Room Air Room Air Room Air Oxygen Flow Rate (L/min) 01/02/24 19:23 01/02/24 19:16 01/02/24 19:59 Temperature 97.8 F Temperature Source Oral Pulse Rate 115 H Respiratory Rate 32 H Respiratory Effort Short of Breath Respiratory Depth Shallow Respiratory Pattern Normal Blood Pressure 130/96 H Blood Pressure Mean 107 Pulse Ox 93 Oxygen Delivery Method Room Air Nasal Cannula Nasal Cannula Oxygen Flow Rate (L/min) 2 2 01/02/24 21:00 01/02/24 19:40 01/02/24 20:17 Temperature 98.8 F Temperature Source Oral Pulse Rate 127 H 122 H Respiratory Rate 26 H 24 H Respiratory Effort Respiratory Depth Respiratory Pattern Tachypnea Blood Pressure 135/84 H Blood Pressure Mean 101 Pulse Ox 93 93 Oxygen Delivery Method Nasal Cannula Nasal Cannula Oxygen Flow Rate (L/min) 2 2 01/02/24 19:21 01/02/24 19:30 01/02/24 19:45 Temperature Temperature Source Pulse Rate 115 H 111 H Respiratory Rate 32 H 25 H Respiratory Effort Respiratory Depth Respiratory Pattern Blood Pressure 130/96 H 136/117 H Blood Pressure Mean 104 124 Pulse Ox 88 90 90 Oxygen Delivery Method Oxygen Flow Rate (L/min) 01/02/24 19:46 01/02/24 20:00 01/02/24 20:15 Temperature Temperature Source Pulse Rate 120 H 123 H Respiratory Rate 31 H 32 H Respiratory Effort Respiratory Depth Respiratory Pattern Blood Pressure 132/78 H 123/89 H Blood Pressure Mean 96 98 Pulse Ox 93 93 95 Oxygen Delivery Method Oxygen Flow Rate (L/min) 2 01/02/24 20:16 01/02/24 20:30 01/02/24 20:45 Temperature Temperature Source Pulse Rate 123 H 121 H Respiratory Rate 32 H 27 H Respiratory Effort Respiratory Depth Respiratory Pattern Blood Pressure 132/97 H 145/94 H 126/89 H Blood Pressure Mean 108 109 101 Pulse Ox 95 94 Oxygen Delivery Method Oxygen Flow Rate (L/min) 01/02/24 21:01 01/02/24 21:03 01/02/24 21:15 Temperature Temperature Source Pulse Rate 125 H Respiratory Rate 42 H Respiratory Effort Respiratory Depth Respiratory Pattern Blood Pressure 104/88 H 126/99 H Blood Pressure Mean 93 108 Pulse Ox Oxygen Delivery Method Oxygen Flow Rate (L/min) 01/02/24 21:30 01/02/24 21:45 Temperature Temperature Source Pulse Rate 117 H 127 H Respiratory Rate 39 H 26 H Respiratory Effort Respiratory Depth Respiratory Pattern Blood Pressure 143/94 H 135/84 H Blood Pressure Mean 110 99 Pulse Ox 92 Oxygen Delivery Method Oxygen Flow Rate (L/min) Weight Weight: 135 lb Body Mass Index (BMI) 23.9 Physical Exam Narrative Physical Examination: General: Awake, alert, oriented x 3 and cooperative, seated upright in the ED bed, fatigued, moist coughing during evaluation, ill-appearing. Skin: Normal color, normal turgor, no icterus, no cyanosis except occasional staged ecchymoses, erythematous rash upper extremity. HEENT: AT/NC, EOMI, PERRLA, moderately dry MM, no carotid bruits or JVD noted. Lungs: Diminished, greater bases, rhonchorous, right greater than left, end expiratory wheezing, some accessory muscle usage but no distress. Heart: Mildly tachycardic with regular rhythm; no gallop, rub audible. Abdomen: Soft, NTTP, appears distended but patient notes this is chronic, mildly tympanitic, hyperactive BS, no appreciated HSM but difficult given chronic distended status. Extremities: No cyanosis, clubbing, or edema. Neurological: Patient awake, alert, oriented as noted, cognitive function intact; pupils equally reactive to light and accommodation, cranial nerves grossly normal, moving all 4 extremities, no focal deficits, strength severely globally decreased secondary to acute presentation. Psychiatric: Affect appears fatigued, ill-appearing, no acute evidence of depressive or anxiety feelings but does have underlying history. Results Lab / Micro Data 01/02/24 19:25 01/02/24 19:25 Labs: Laboratory Results - last 24 hr 01/02/24 19:25: WBC 25.7 H, RBC 4.99, Hgb 12.9, Hct 41.5, MCV 83.2, MCH 25.9 L, MCHC 31.1 L, RDW Std Deviation 47.1 H, RDW Coeff of Min 15.6 H, Plt Count 311, MPV 9.8, Immature Gran % (Auto) 0.800, Neut % (Auto) 81.7 H, Lymph % (Auto) 9.6 L, Dix[place] % (Auto) 6.9, Eos % (Auto) 0.6, Baso % (Auto) 0.4, Absolute Neuts (auto) 21.0 H, Absolute Lymphs (auto) 2.46, Nucleated RBC % 0, Differential Comment SCANNED, Diff Path Review January, Sodium 133 L, Potassium 3.9, Chloride 101, Carbon Dioxide 25.0, Anion Gap 7, BUN 14, Creatinine 0.96, Estim Creat Clear Calc 51.55, Est GFR (MDRD) Af Amer 77, Est GFR (MDRD) Non-Af 63, BUN/Creatinine Ratio 14.7, Glucose 126 H, Calcium 8.9, Troponin I High Sens 13 01/02/24 19:33: PT 14.5, INR 1.1, APTT 32.2, Total Bilirubin 0.30, Direct Bilirubin 0.13, AST 14 L, ALT 13, Alkaline Phosphatase 148 H, B-Natriuretic Peptide 75.1, Total Protein 8.3 H, Albumin 3.2, Globulin 5.1 H 01/02/24 20:35: Lactic Acid 1.2 Micro: Microbiology 01/02/24 19:25 Mucosa - Nose SARS-CoV-2, Influenza & RSV (PCR) - Final ABG Data ABG results: ABG 01/02/24 20:06 Specimen Type ART Sample Site R Radial pH 7.42 Bicarbonate Actual 20.7 L Total CO2 22 Base Excess -4 L O2 Saturation 92 L O2 % 21.0 ABG pCO2 32.2 L ABG pO2 62 L Alexis Test Positive O2 Delivery Device Room Air Vent Mode Not entered Imaging Radiology Impression Chest X-Ray 01/02/24 19:16 IMPRESSION: No radiographic evidence of acute cardiopulmonary disease. Electronically Signed: Jeff Thakkar MD at 20:22 EDT , Chest CTA 01/02/24 20:13 IMPRESSION: Normal CTA chest examination, without a demonstrated pulmonary embolism or arterial dissection. Right middle and upper lobe infiltrates consistent with pneumonia. Electronically Signed: Jeff Thakkar MD at 21:39 EDT Reading Location ID and State: [facility] / [place] Tel , Service support , Assessment & Plan Assessment/Plan (1) Pneumonia: PLAN: Plan The patient is a 58 y/o F w/ PMHx: EtOH abuse, Tobacco use, COPD/Asthma w/ Chronic Hypoxic Respiratory Failure (PRN), HTN, HLD, Chronic anemia, Anxiety and Depression, Chronic pancreatitis associated with EtOH abuse who presents to the [facility] ED on 01/02/24 with history of onset of viral upper respiratory type symptoms starting 2 to 3 weeks prior to current presentation with now worsening cough which is moist and productive with subjective fevers and diaphoresis in addition to loose stools with worsening dyspnea placing her self back on supplemental oxygen with generalized pleuritic chest discomfort worse with coughing with movement in addition to nausea and an bout of emesis on day of presentation prompting eventual ED evaluation. #1. Acute Hypoxia on Chronic (PRN supplemental) secondary to Recent suspected Acute Viral Syndrome with now Superimposed Acute right middle and upper lobe community-acquired pneumonia and concurrent Acute on Chronic COPD/Asthma Exacerbation: Will admit to MS telemetry, maintain on oxygen with wean as tolerated to room air, continue ATC duonebs, PRN albuterol, maintained on IV Rocephin and Azithromycin, IV Solu-Medrol, HOB, IS parameters w/ pending sputum cultures, full respiratory viral panel, procalcitonin and urine antigens. #2. Left forearm erythematous rash, unclear etiology: Left forearm with erythematous rash over the medial aspect just inferior to the elbow with no increased warmth or specific abrasions or lesions, as noted above #1 planned IV Solu-Medrol, continue to monitor. #3. Chronic normocytic anemia: Admission hemoglobin 12.9, MCV 83 point, baseline hemoglobin has vacillated however labs have not been done recently, last noted 11/07/2022 8.8 however this was during an acute presentation, previous to this baseline appears 11-, will continue to trend. #4. History of EtOH Abuse: Reportedly sober since 2020, encourage continued sobriety. #5. Hypertension: Will continue patient home amlodipine regimen, PRN hydralazine. #6. Hyperlipidemia: We will continue patient on statin therapy. #7. Anxiety and depression: We will continue patient home mirtazapine as well as hydroxyzine and Abilify home regimen. #8. Chronic pancreatitis, alcohol related: We will continue patient home Creon regimen. #9. Tobacco Abuse: Encouraged cessation, inpatient consultation per RT, NR if desired. #10. GERD: We will continue patient home PPI. #11. DVT prophylaxis: Lovenox. #12. CODE status: Patient does not have healthcare power of attorney general or living will in place but notes that if she needed a medical decision maker in the case that she was unable she would want her Sister Domonique Augustine to be her decision-maker. Discussed CODE status at length including difference between FULL code, DNR-CCA and DNR-CC status. Following discussions about the differences in these status, requested Full Code status. Advanced Care Planning Face to Face Time: 16 minutes. Charges/Coding Visit Charges Inpatient E&M: 60879 Init Hosp L3 Procedures Hospitalists Procedures: 12201 Advncd Care Plan 30 Min
[2024-01-02] MEDS: Ceftriaxone 1 GM/50 ML BAG IV (22:38)
[2024-01-02 22:56] LABS: Procalcitonin 0.11 ng/mL (0.00-0.09)
[2024-01-02] MEDS: Azithromycin 500 MG in Dextrose 5%-Water (250mL Bag) 250 ML 250 MG IV (23:36)
[2024-01-03] VITALS (11 sets, daily range): BP systolic 135–170; BP diastolic 74–87; PULSE 80–114; RESP 18–24; TEMP 36.6–36.7; O2SAT 86–95
[2024-01-03] MEDS: Ipratropium/Albuterol Sulfate 3 ML AMPUL.NEB INHALATION ×5 (00:08→20:19)
[2024-01-03] MEDS: Atorvastatin Calcium 10 MG Tablet PO ×2 (00:40→21:42)
[2024-01-03] MEDS: 0.9% Normal Saline (1000mL) 1,000 ML 999 ML IV (00:40)
[2024-01-03] MEDS: Mirtazapine 15 MG Tablet 45 MG PO ×2 (00:41→21:42)
[2024-01-03] MEDS: hydrOXYzine PAM 25 MG Capsule PO ×2 (00:49→23:46)
[2024-01-03] MEDS: 0.9% Normal Saline (1000mL) 1,000 ML 100 ML IV (01:54)
[2024-01-03] MEDS: Ketorolac 30 MG/ML Syringe IV ×3 (05:31→22:26)
[2024-01-03 07:18] LABS: Absolute Lymphocyte Count 1.02 X10^3/uL (0.83-4.51); Absolute Neutrophil Count 23.3 X10^3/uL (2.0-7.7); Basophil# 0.07 X10^3/uL; Basophil% 0.3 % (0-1); Eosinophil# 0.06 X10^3/uL; Eosinophils% 0.2 % (0-5); Hematocrit 40.2 % (37-47); Hemoglobin 12.2 g/dL (12.0-15.0); Lymphocyte # 1.02 X10^3/ul (0.83-4.51); Mean Corp Hgb Conc 30.3 g/dL (32-36); Mean Corpuscular Hgb 25.8 pg (27.0-32.0); Mean Corpuscular Volume 85.2 fL (81-99); Mean Platelet Vol. 10.2 fl (6.2-12.0); Monocyte# 0.64 X10^3/uL; Monocyte% 2.5 % (0-10); NRBC Flagged by Analyzer 0 % (0-5); Neutrophil # 23.26 X10^3/uL (2.7-7.7); Neutrophil % 91.3 % (47-70); POSITIVE DIFFERENTIAL YES; Platelet Count 332 K/mm3 (150-450); RBC Distribution Width CV 15.6 % (11.6-14.6); RBC Distribution Width SD 48.8 fl (35.1-43.9); Red Blood Count 4.72 M/mm3 (4.2-5.4); White Blood Count 25.5 K/mm3 (4.4-11.0)
[2024-01-03 07:34] LABS: Differential Indicated SCAN CRITERIA MET
[2024-01-03 08:04] LABS: ALB/GLOB Ratio 0.6 RATIO (0.9-2.4); AST(SGOT) 12 U/L (15-37); Alanine Aminotransfer ALT/SGPT 12 U/L (13-56); Albumin, Serum 2.9 g/dL (3.2-5.0); Alkaline Phosphatase 129 U/L (45-117); Anion Gap 7 (5-15); BUN 14 mg/dL (7-18); BUN/Creat Ratio 14.3 RATIO (10-20); Calcium,Total 8.9 mg/dL (8.5-10.1); Chloride 105 mmol/L (98-107); Creatinine, Serum 0.98 mg/dL (0.55-1.02); EST Glomerular Filtration Rate 61 mL/min (>60); Est Glom Filt Rate - Afr Amer 74 mL/min (>60); Glucose 227 mg/dL (74-106); Potassium 4.3 mmol/L (3.5-5.1); Protein, Total 7.9 g/dL (6.4-8.2); Sodium Level 135 mmol/L (136-145)
--- NOTE | 2024-01-03 09:08 | PCM.PROGNOTE ---
Subjective Subjective Patient seen and examined. She was admitted with a complaint of cough and fever as well as shortness of breath and has been managed for COPD exacerbation as well as community-acquired pneumonia. She says she is feeling better today. Her breathing has improved. She denies any palpitations, dizziness, nausea or vomiting. She still is coughing. Review of systems otherwise negative. Objective Data Objective Data Vital Signs: Vital Signs Temp Pulse Resp BP Pulse Ox O2 Del Method O2 Flow Rate 98.0 F 102 H 22 H 160/74 H 87 Nasal Cannula 2 01/03/24 05:28 01/03/24 07:13 01/03/24 07:13 01/03/24 05:28 01/03/24 07:13 01/03/24 07:13 01/03/24 07:13 Oxygen Flow Rate (L/min) 2 Oxygen Delivery Method Nasal Cannula Weight: 137 lb 9.095 oz Body Mass Index (BMI) 24.3 Intake & Output: Intake and Output for Last 24 Hours 01/01/24 01/02/24 01/03/24 23:59 23:59 23:59 Intake Total 1050 / 1050 1505 / 1505 Balance 1050 / 1050 1505 / 1505 Lab / Micro Data 01/03/24 06:33 01/03/24 06:33 Labs: Laboratory Results - last 24 hr 01/02/24 19:25: WBC 25.7 H, RBC 4.99, Hgb 12.9, Hct 41.5, MCV 83.2, MCH 25.9 L, MCHC 31.1 L, RDW Std Deviation 47.1 H, RDW Coeff of Min 15.6 H, Plt Count 311, MPV 9.8, Immature Gran % (Auto) 0.800, Neut % (Auto) 81.7 H, Lymph % (Auto) 9.6 L, Edgar % (Auto) 6.9, Eos % (Auto) 0.6, Baso % (Auto) 0.4, Absolute Neuts (auto) 21.0 H, Absolute Lymphs (auto) 2.46, Nucleated RBC % 0, Differential Comment SCANNED, Diff Path Review January foll, Sodium 133 L, Potassium 3.9, Chloride 101, Carbon Dioxide 25.0, Anion Gap 7, BUN 14, Creatinine 0.96, Estim Creat Clear Calc 51.55, Est GFR (MDRD) Af Amer 77, Est GFR (MDRD) Non-Af 63, BUN/Creatinine Ratio 14.7, Glucose 126 H, Calcium 8.9, Troponin I High Sens 13 01/02/24 19:33: PT 14.5, INR 1.1, APTT 32.2, Total Bilirubin 0.30, Direct Bilirubin 0.13, AST 14 L, ALT 13, Alkaline Phosphatase 148 H, B-Natriuretic Peptide 75.1, Total Protein 8.3 H, Albumin 3.2, Globulin 5.1 H 01/02/24 19:54: Procalcitonin 0.11 H 01/02/24 20:35: Lactic Acid 1.2 01/03/24 06:33: WBC 25.5 H, RBC 4.72, Hgb 12.2, Hct 40.2, MCV 85.2, MCH 25.8 L, MCHC 30.3 L, RDW Std Deviation 48.8 H, RDW Coeff of Min 15.6 H, Plt Count 332, MPV 10.2, Immature Gran % (Auto) 1.700 H, Neut % (Auto) 91.3 H, Lymph % (Auto) 4.0 L, Edgar % (Auto) 2.5, Eos % (Auto) 0.2, Baso % (Auto) 0.3, Absolute Neuts (auto) 23.3 H, Absolute Lymphs (auto) 1.02, Nucleated RBC % 0, Sodium 135 L, Potassium 4.3, Chloride 105, Carbon Dioxide 23.0, Anion Gap 7, BUN 14, Creatinine 0.98, Estim Creat Clear Calc 50.50, Est GFR (MDRD) Af Amer 74, Est GFR (MDRD) Non-Af 61, BUN/Creatinine Ratio 14.3, Glucose 227 H, Calcium 8.9, Total Bilirubin 0.20, AST 12 L, ALT 12 L, Alkaline Phosphatase 129 H, Total Protein 7.9, Albumin 2.9 L, Globulin 5.0 H, Albumin/Globulin Ratio 0.6 L Micro: Microbiology 01/03/24 00:02 Mucosa - Nasopharyngeal Respiratory Panel (PCR) - Final Rhinovirus 01/02/24 19:25 Mucosa - Nose SARS-CoV-2, Influenza & RSV (PCR) - Final ABG Data ABG results: ABG 01/02/24 20:06 Specimen Type ART Sample Site R Radial pH 7.42 Bicarbonate Actual 20.7 L Total CO2 22 Base Excess -4 L O2 Saturation 92 L O2 % 21.0 ABG pCO2 32.2 L ABG pO2 62 L Alexis Test Positive O2 Delivery Device Room Air Vent Mode Not entered Radiography Diagnostic Testing: Radiology Impression Chest X-Ray 01/02/24 19:16 IMPRESSION: No radiographic evidence of acute cardiopulmonary disease. Electronically Signed: Jeff Thakkar MD at 20:22 EDT , Chest CTA 01/02/24 20:13 IMPRESSION: Normal CTA chest examination, without a demonstrated pulmonary embolism or arterial dissection. Right middle and upper lobe infiltrates consistent with pneumonia. Electronically Signed: Jeff Thakkar MD at 21:39 EDT , Physical Exam Const alert, oriented x3 and no apparent distress Constitutional Narrative: looks older than stated age General Appearance: cooperative HEENT normocephalic and head/scalp atraumatic Eyes EOMs intact bilaterally Neck no lymphadenopathy, supple and no JVD Lymph Lymphatic: no lymphadenopathy noted and no lymphedema noted Resp Resp Narrative: moderately diminished breath sounds bilaterally, mild wheezing, no crackles. On 2L of oxygen by nasal canula. Effort and Inspection: tachypneic Cardio regular rhythm, S1 normal heart sound, S2 normal heart sound and no murmurs Rate: tachycardic GI normal to inspection, nondistended, normoactive bowel sounds, soft to palpation, non-tender and non-distended Extremity normal capillary refill, no clubbing, cyanosis or edema and no calf tenderness General Extremity: no tenderness to palpation of joints or extremities Skin General Skin Exam: no breakdown Neuro CN's II-XII intact bilaterally, no focal motor deficits, no sensory deficits noted and deep tendon reflexes 2+ bilaterally Motor Exam: strength 5/5 throughout and general weakness Psych thought process normal, cooperative and affect normal Appearance: appropriate Assessment & Plan Assessment/Plan (1) Pneumonia: PLAN: Plan #Community acquired pneumonia Patient feeling much better. She feels her breathing is improved. She is on 2 L of oxygen. She is mildly tachypneic and tachycardic today. On IV ceftriaxone and azithromycin. breathing treatment with bronchodilators titrate oxygen to maintain sats >90% WBC is elevated at 25.5. Respiratory panel positive for rhinovirus #Acute exacerbation of COPD In the setting of upper respiratory tract infection due to rhinovirus infection as well as community-acquired pneumonia On IV Solu-Medrol. Breathing treatments and bronchodilators. Titrate oxygen to saturation above 90%. #URTI due to rhinovirus infection management as above #Hypertension: On amlodipine. IV hydralazine as needed #Hyperlipidemia: On statin #Anxiety and depression: Mirtazapine and Abilify #History of alcohol related chronic pancreatitis: On Creon #GERD: On PPI DVT prophylaxis: Lovenox # Charges/Coding Visit Charges Inpatient E&M: 19040 Subs Hosp L2
[2024-01-03] MEDS: Enoxaparin 40 MG/0.4 ML Syringe SC (09:26)
[2024-01-03] MEDS: Creon 24,000 unit DR Capsule 1 CAP PO ×3 (09:26→16:55)
[2024-01-03] MEDS: ARIPiprazole 5 MG Tablet PO (09:26)
[2024-01-03] MEDS: amLODIPine 2.5 MG Tablet PO (09:27)
[2024-01-03] MEDS: Pantoprazole Sodium 40 MG Tablet PO (09:27)
[2024-01-03] MEDS: guaiFENesin 10 ML UDC (200MG/10ML) 20 ML PO ×2 (09:32→15:00)
[2024-01-03] MEDS: traMADol 50 MG Tablet PO (09:33)
--- NOTE | 2024-01-03 11:18 | CPS ---
Pt did not tolerate VEST Therapy, had to stop after 3 min. RT miguel let know.
[2024-01-03] MEDS: 0.9% Saline Lock 10 ML Syringe IV ×2 (15:01→23:47)
[2024-01-03] MEDS: LORazepam 0.5 MG Tablet PO (15:05)
[2024-01-03] MEDS: Ceftriaxone 1 GM/50 ML BAG IV (21:42)
[2024-01-03] MEDS: Azithromycin 500 MG in Dextrose 5%-Water (250mL Bag) 250 ML 250 MG IV (22:26)
[2024-01-03] MEDS: hydrALAZINE 20 MG/ML Vial 10 MG IV (23:46)
[2024-01-04] VITALS (12 sets, daily range): BP systolic 139–151; BP diastolic 73–100; PULSE 86–125; RESP 15–22; TEMP 36.6–36.7; O2SAT 88–96; BMI 23.5
[2024-01-04] MEDS: 0.9% Saline Lock 10 ML Syringe IV ×4 (06:14→18:31)
[2024-01-04] MEDS: Ketorolac 30 MG/ML Syringe IV ×2 (06:25→18:31)
[2024-01-04] MEDS: guaiFENesin 10 ML UDC (200MG/10ML) 20 ML PO (06:25)
[2024-01-04] MEDS: LORazepam 0.5 MG Tablet PO (06:29)
[2024-01-04] MEDS: Ipratropium/Albuterol Sulfate 3 ML AMPUL.NEB INHALATION ×2 (06:52→10:04)
[2024-01-04] MEDS: Creon 24,000 unit DR Capsule 1 CAP PO ×3 (07:50→18:11)
--- NOTE | 2024-01-04 08:28 | PN.HOSP_ITS ---
Reason for Visit Reason for Visit: Diagnoses Pneumonia, unspecified organism (01/02/24) Objective Data Objective Data Vital Signs: Vital Signs Temp Pulse Resp BP Pulse Ox O2 Del Method O2 Flow Rate 98.1 F 118 H 20 H 151/73 H 91 Nasal Cannula 2 01/04/24 03:00 01/04/24 06:53 01/04/24 06:53 01/04/24 03:00 01/04/24 06:53 01/04/24 06:53 01/04/24 06:53 Oxygen Flow Rate (L/min) 2 Oxygen Delivery Method Nasal Cannula Weight: 132 lb 15.02 oz Body Mass Index (BMI) 23.5 Intake & Output: Intake and Output for Last 24 Hours 01/02/24 01/03/24 01/04/24 23:59 23:59 23:59 Intake Total 1050 / 1050 2810 / 3110 650 / 650 Balance 1050 / 1050 2810 / 3110 650 / 650 Lab / Micro Data 01/03/24 06:33 01/03/24 06:33 Micro: Microbiology 01/03/24 00:02 Mucosa - Nasopharyngeal Respiratory Panel (PCR) - Final Rhinovirus 01/02/24 19:25 Mucosa - Nose SARS-CoV-2, Influenza & RSV (PCR) - Final Assessment & Plan Assessment/Plan (1) Pneumonia: PLAN: Plan #Community acquired pneumonia * Patient feeling much better. She feels her breathing is improved. She is on 2 L of oxygen. * She is mildly tachypneic and tachycardic today. On IV ceftriaxone and azithromycin. * breathing treatment with bronchodilators * titrate oxygen to maintain sats >90% * WBC is elevated at 25.5. * Respiratory panel positive for rhinovirus * #Acute exacerbation of COPD * In the setting of upper respiratory tract infection due to rhinovirus infec tion as well as community-acquired pneumonia * On IV Solu-Medrol. Breathing treatments and bronchodilators. Titrate oxygen to saturation above 90%. * #URTI due to rhinovirus infection * management as above * #Hypertension: On amlodipine. IV hydralazine as needed #Hyperlipidemia: On statin #Anxiety and depression: Mirtazapine and Abilify #History of alcohol related chronic pancreatitis: On Creon #GERD: On PPI DVT prophylaxis: Lovenox * #
--- NOTE | 2024-01-04 08:28 | PCM.PN.HOSP ---
Reason for Visit Reason for Visit: Diagnoses Pneumonia, unspecified organism (01/02/24) Objective Data Objective Data Vital Signs: Vital Signs Temp Pulse Resp BP Pulse Ox O2 Del Method O2 Flow Rate 98.1 F 118 H 20 H 151/73 H 91 Nasal Cannula 2 01/04/24 03:00 01/04/24 06:53 01/04/24 06:53 01/04/24 03:00 01/04/24 06:53 01/04/24 06:53 01/04/24 06:53 Oxygen Flow Rate (L/min) 2 Oxygen Delivery Method Nasal Cannula Weight: 132 lb 15.02 oz Body Mass Index (BMI) 23.5 Intake & Output: Intake and Output for Last 24 Hours 01/02/24 01/03/24 01/04/24 23:59 23:59 23:59 Intake Total 1050 / 1050 2810 / 3110 650 / 650 Balance 1050 / 1050 2810 / 3110 650 / 650 Lab / Micro Data 01/03/24 06:33 01/03/24 06:33 Micro: Microbiology 01/03/24 00:02 Mucosa - Nasopharyngeal Respiratory Panel (PCR) - Final Rhinovirus 01/02/24 19:25 Mucosa - Nose SARS-CoV-2, Influenza & RSV (PCR) - Final Physical Exam Narrative Patient has a history of COPD and is on 2 L of home oxygen. Patient states he also has CPAP at home but she is claustrophobic therefore does not use it. Complain of rib pain due to persistent cough. Wants some stronger cough medicine with codeine. Heart rate and blood pressure elevated Physical exam General: Alert, Oriented x3, Cooperative HEENT: Atraumatic, PERRLA, EOMI, Normocephalic Oral: No Gingival or Mucosal Lesions/ Ulcerations Neck: Supple, No JVD, Negative Carotid Bruits Chest wall/Lungs: Air entry diminished in bilateral lung bases. Bilateral expiratory rhonchi and wheezing present. Cardiovascular: Sinus tachycardia, Normal S1, Normal S2, No M/G/R Abdomen: Bowel Sounds Present, Soft, Non Tender, Non-Distended : No dysuria. No renal angle tenderness. No suprapubic tenderness. Extremities: No edema, Capillary Refill Less than 3 Seconds Skin: No rashes, No breakdown Musculoskeletal: No Tenderness to Palpation of Joints or Extremities Neurological: Cranial nerves II-XII grossly intact, DTR 2+/4. No acute focal neurological deficit. Psych/Mental Status: Anxiety and mild depression Assessment & Plan Assessment/Plan (1) Pneumonia: PLAN: Plan 58-year-old female admitted with shortness of breath along with URI symptoms for 2 to 3 weeks. For last 1 week her symptoms worsen including chest congestion and cough, waking up at night feeling feverish with sweats. #Community acquired pneumonia Patient feeling much better. She feels her breathing is improved. She is on 2 L of oxygen. She is mildly tachypneic and tachycardic today. On IV ceftriaxone and azithromycin. breathing treatment with bronchodilators titrate oxygen to maintain sats >90% WBC is elevated at 25.5. Respiratory panel positive for rhinovirus 01/03: Patient still has shortness of breath and wheezing. Hypoxia got better on room air but then again patient on 2 to 3 L of oxygen. Incentive spirometry and Pep. #Acute exacerbation of COPD In the setting of upper respiratory tract infection due to rhinovirus infection as well as community-acquired pneumonia On IV Solu-Medrol. Breathing treatments and bronchodilators. Titrate oxygen to saturation above 90%. #URTI due to rhinovirus infection management as above #Hypertension: On amlodipine. IV hydralazine as needed 01/03: Blood pressure and heart rate are elevated. Patient on 2.5 mg amlodipine at home increased to 5 mg daily. HCTZ 12.5 mg added. DuoNeb changed to ipratropium because of sinus tachycardia. Metoprolol 25 mg twice daily to control sinus tachycardia. #Hyperlipidemia: On statin #Anxiety and depression: Mirtazapine and Abilify #History of alcohol related chronic pancreatitis: On Creon #GERD: On PPI DVT prophylaxis: Lovenox # Charges/Coding Visit Charges Inpatient E&M: 82543 Subs Hosp L2
[2024-01-04] MEDS: Pantoprazole Sodium 40 MG Tablet PO (09:23)
[2024-01-04] MEDS: amLODIPine 2.5 MG Tablet PO (09:23)
[2024-01-04] MEDS: Enoxaparin 40 MG/0.4 ML Syringe SC (09:24)
[2024-01-04] MEDS: ARIPiprazole 5 MG Tablet PO (09:24)
[2024-01-04] MEDS: Benzonatate 100 MG Capsule 200 MG PO (12:01)
[2024-01-04] MEDS: traMADol 50 MG Tablet PO ×2 (12:02→21:46)
[2024-01-04] MEDS: hydroCHLOROthiazide 12.5mg 12.5 MG PO (12:02)
[2024-01-04] MEDS: Metoprolol Tartrate 25 MG Tablet PO ×2 (12:02→21:44)
[2024-01-04] MEDS: guaiFENesin/Codeine 5 ML UDC 10 ML PO (13:12)
--- NOTE | 2024-01-04 13:34 | CASEMGMT ---
Addendum entered by Timo Diaz 01/04/24 13:48: Rhianna from [facility] states the pt current O2 order is 2LPM CONT VIA [place] Original Note: SARWAT LOMELI Assessment Face to Face with patient for initial transition planning/care coordination assessment. SARWAT LOMELI introduced self and role at [facility], pt voices understanding. Pt is A&Ox4 and is resting comfortably in bed and is calm. Care providers, pharmacy, and demographics verified. Admitting dx: Hypoxia, PNA, COPD Exacerbation PCP: Anat Gutiérrez Specialists: [facility]. JACKELIN MENENDEZ [facility] Preferred Pharmacy: [facility] Insurance: [employer]/ [employer] Prescription Benefit: Yes LNOK: Domonique Augustine (Sister) Living Arrangements: Pt lives with her 39 y/o daughter in a 2 story home with 6 steps to enter with handrails. ADLs/IADLs: Ind Transportation: Self, family, [facility] Van. Pt is requesting to use the [facility] Van at time of DC. DME: Pt states that she wears 2L of O2 as needed through [facility]. Pt states that she does not wear a PAP/ NIV at night as she could not get used to it. Pt states that she has 4 portable tanks at home but does not have a concentrator. Pt states that she does not have a portable tank in the room currently and is going to try to find someone who can bring one in for her. Pt requesting concentrator at [place]. Pt has a Pulse Ox. Email sent to [facility] Liaison to verify current Rx. Will follow. Pt also reports that she has a nebulizer. HHC/SNF: Denies history or needs. Smoking Hx: Pt states that she currently smokes 1 pack per day. Pt educated about safety issues with smoking and oxygen. Pt states understanding that she she is going to try to quit once I get home. Pt?s goal: Home via the [facility] Van with new oxygen concentrator. Plan: 6-Click is 23. No therapy ordered. Pt states that her daughter can help her at home if needed. CM to follow for increased O2 needs and concentrator. Pt refuses needing HHC or OP therapy at this time. Pt states that she wants to DC home and feels safe doing so. CM to follow for safe DC from [facility]. Tova Diaz RN, CM
[2024-01-04] MEDS: Ipratropium 0.5 MG/2.5 ML SOLUTION INHALATION ×3 (15:29→23:30)
[2024-01-04] MEDS: Guaifenesin/Codeine 5 ML WCH UDC 10 ML PO ×2 (18:11→21:43)
[2024-01-04] MEDS: Ceftriaxone 1 GM/50 ML BAG IV (21:29)
[2024-01-04] MEDS: Mirtazapine 15 MG Tablet 45 MG PO (21:44)
[2024-01-04] MEDS: Atorvastatin Calcium 10 MG Tablet PO (21:45)
[2024-01-04] MEDS: Azithromycin 500 MG in Dextrose 5%-Water (250mL Bag) 250 ML 250 MG IV (23:00)
[2024-01-05] VITALS (8 sets, daily range): BP systolic 150–200; BP diastolic 78–107; PULSE 90–110; RESP 15–20; TEMP 36.6; O2SAT 83–94; BMI 23.2
[2024-01-05] MEDS: LORazepam 0.5 MG Tablet PO (00:34)
[2024-01-05] MEDS: Ketorolac 30 MG/ML Syringe IV ×2 (00:34→11:13)
[2024-01-05] MEDS: Guaifenesin/Codeine 5 ML WCH UDC 10 ML PO ×2 (03:34→09:17)
[2024-01-05] MEDS: Ipratropium 0.5 MG/2.5 ML SOLUTION INHALATION ×2 (06:57→10:54)
[2024-01-05 07:15] LABS: Hematocrit 42.2 % (37-47); Hemoglobin 13.1 g/dL (12.0-15.0); Mean Corpuscular Hgb 25.8 pg (27.0-32.0); Mean Corpuscular Volume 83.2 fL (81-99); Mean Platelet Vol. 10.1 fl (6.2-12.0); POSITIVE COUNT YES; POSITIVE DIFFERENTIAL YES; POSITIVE MORPHOLOGY YES; Platelet Count 498 K/mm3 (150-450); RBC Distribution Width SD 48.2 fl (35.1-43.9); Red Blood Count 5.07 M/mm3 (4.2-5.4); White Blood Count 29.4 K/mm3 (4.4-11.0)
[2024-01-05 07:18] LABS: Differential Indicated MANUAL DIFF
--- NOTE | 2024-01-05 07:39 | DCINST_ITS ---
Discharge Instructions Diet Discharge Diet: 2000 mg Sodium Diet Activity Discharge Activity: Return to Normal Activity Weight Bearing Status: Weight bearing as tolerated Dressing / Incision Call your doctor if you observe: Fever of 101 or Higher, Coldness, Increased Pain, Numbness or Tingling, Change in Color, Inability to urinate, Inability to have a bowel movement, Using more than 1 pad per hour, Shortness of breath, Dizziness, Fainting spells, Swelling in the ankles, Chest pain, Prolonged hiccupping, Increased palpitations (irregular heartbeat) and Calf discomfort Follow Up Care When: IN 2 WEEKS Test Results: Test results from this visit will be discussed in further detail at your follow- up appointment, if applicable. Discharge Plan Admission Admit Date/Time: 01/02/24 22:11 Attending Provider: Bert Greenwood Primary Care Provider: Anat Gutiérrez NP Consulting Providers: Carin Meraz; Anastacia Bonilla Discharge Orders/Prescriptions Prescriptions: No Action albuterol sulfate [Ventolin HFA] 90 mcg/actuation HFA aerosol inhaler 2 puff INHALATION Q4H PRN (Reason: shortness of breath or wheezing) Qty: 18 6RF mirtazapine 45 mg tablet 45 mg PO QHS Trelegy Ellipta 100-62.5-25 mcg blister with device 1 inh inhalation Q24H cholecalciferol (vitamin D3) 2,000 UNIT capsule 50 mcg PO DAILY pantoprazole 40 MG tablet 40 mg PO DAILY aripiprazole [Abilify] 5 mg Tablet 5 mg PO DAILY hydroxyzine pamoate 25 mg Capsule 25 mg PO QHS Creon 24,000-76,000 -120,000 unit capsule,delayed release(DR/EC) 2 cap PO BID amlodipine 2.5 mg tablet 2.5 mg PO DAILY simvastatin 20 mg tablet 20 mg PO QHS oxycodone 5 mg tablet 5 mg PO Q8H PRN (Reason: pain) 1 Days Qty: 3 0RF lorazepam 0.5 mg tablet 0.5 mg PO Q12H PRN (Reason: ANXIETY) Referrals / Follow Up: JENNIFER NATARAJAN NP-C [Non-Staff] - Anat Gutiérrez SHADE CLOTH FINISHER, SHADE CLOTH FINISHER-C [Primary Care Provider] - Disposition Disposition (needs filled in before D/C Order can be placed): Home, Self Care
--- NOTE | 2024-01-05 07:39 | PCM.DC ---
Discharge Instructions Diet Discharge Diet: 2000 mg Sodium Diet Activity Discharge Activity: Return to Normal Activity Weight Bearing Status: Weight bearing as tolerated Dressing / Incision Call your doctor if you observe: Fever of 101 or Higher, Coldness, Increased Pain, Numbness or Tingling, Change in Color, Inability to urinate, Inability to have a bowel movement, Using more than 1 pad per hour, Shortness of breath, Dizziness, Fainting spells, Swelling in the ankles, Chest pain, Prolonged hiccupping, Increased palpitations (irregular heartbeat) and Calf discomfort Follow Up Care When: IN 2 WEEKS Test Results: Test results from this visit will be discussed in further detail at your follow-up appointment, if applicable. Discharge Plan Admission Admit Date/Time: 01/02/24 22:11 Primary Reason for Your Visit: Pneumonia with COPD exacerbation Attending Provider: Bert Greenwood Primary Care Provider: Anat Gutiérrez NP Consulting Providers: Carin Meraz; Anastacia Bonilla Discharge Orders/Prescriptions Prescriptions: New tramadol 50 mg Tablet 50 mg PO Q6H PRN PRN (Reason: Pain Score 6-10) 3 Days Qty: 10 0RF amlodipine 10 mg Tablet 10 mg PO DAILY 30 Days Qty: 30 1RF Rx Instructions: Hold for SBP less than 130 mmHg nicotine 21 mg/24 hr Patch 24 Hour 21 mg transdermal DAILY 28 Days Qty: 28 0RF hydrochlorothiazide 12.5 mg Capsule 12.5 mg PO BREAKFAST 30 Days Qty: 30 2RF Rx Instructions: Hold for SBP less than 130 mmHg metoprolol tartrate 25 mg Tablet 25 mg PO BID 30 Days Qty: 60 0RF Rx Instructions: Hold for heart less than 50 or systolic blood pressure less than 100 mmHg. levofloxacin 500 mg tablet 500 mg PO DAILY 4 Days Qty: 4 0RF benzonatate 200 mg capsule 200 mg PO TID PRN (Reason: cough) 7 Days Qty: 21 0RF prednisone 10 mg tablet 10 mg PO DAILY Qty: 30 0RF Rx Instructions: 40 mg for 3 days 30 mg for 3 days, 20 mg for 3 days,and 10 mg for 3 days Continued albuterol sulfate [Ventolin HFA] 90 mcg/actuation HFA aerosol inhaler 2 puff INHALATION Q4H PRN (Reason: shortness of breath or wheezing) Qty: 18 6RF mirtazapine 45 mg tablet 45 mg PO QHS Trelegy Ellipta 100-62.5-25 mcg blister with device 1 inh inhalation Q24H cholecalciferol (vitamin D3) 2,000 UNIT capsule 50 mcg PO DAILY pantoprazole 40 MG tablet 40 mg PO DAILY aripiprazole [Abilify] 5 mg Tablet 5 mg PO DAILY Creon 24,000-76,000 -120,000 unit capsule,delayed release(DR/EC) 2 cap PO BID simvastatin 20 mg tablet 20 mg PO QHS lorazepam 0.5 mg tablet 0.5 mg PO Q12H PRN (Reason: ANXIETY) Held hydroxyzine pamoate 25 mg Capsule 25 mg PO QHS Hold Instructions: Hold it while taking levofloxacin for drug drug interaction. Discontinued amlodipine 2.5 mg tablet 2.5 mg PO DAILY oxycodone 5 mg tablet 5 mg PO Q8H PRN (Reason: pain) 1 Days Qty: 3 0RF Referrals / Follow Up: JENNIFER NATARAJAN EMPLOYEE BENEFITS INSURANCE AGENT-C [Non-Staff] - Anat Gutiérrez EMPLOYEE BENEFITS INSURANCE AGENT, EMPLOYEE BENEFITS INSURANCE AGENT-C [Primary Care Provider] - Gonzalo Sebastian DO [Med Staff - Active Staff] - Within 2 Weeks Disposition Disposition (needs filled in before D/C Order can be placed): Home, Self Care
[2024-01-05 07:58] LABS: Lymphocyte 13 % (19-41); Monocyte 2 % (0-10); Myelocyte 1 % (0-0); Neutrophil-Band 3 % (0-5); Neutrophil-Segmented 81 % (47-70); Total Cells Counted 100 (MANUAL DIFF)
[2024-01-05 07:59] LABS: Platelet Estimate MOD INC (ADEQ); Red Cell Morphology NORM C+C NORMAL (NORM C&C)
[2024-01-05 08:00] LABS: Absolute Lymphocyte Count 3.82 X10^3/uL (0.83-4.51); Absolute Neutrophil Count 24.7 X10^3/uL (2.0-7.7); Monocyte# 3.82 X10^3/uL
[2024-01-05] MEDS: Metoprolol Tartrate 25 MG Tablet PO (08:27)
[2024-01-05] MEDS: Pantoprazole Sodium 40 MG Tablet PO (08:27)
[2024-01-05] MEDS: hydroCHLOROthiazide 12.5mg 12.5 MG PO (08:27)
[2024-01-05] MEDS: Enoxaparin 40 MG/0.4 ML Syringe SC (08:28)
[2024-01-05] MEDS: amLODIPine 10 MG Tablet PO (08:31)
[2024-01-05] MEDS: Creon 24,000 unit DR Capsule 1 CAP PO ×2 (08:32→11:14)
[2024-01-05] MEDS: traMADol 50 MG Tablet PO (08:36)
[2024-01-05 08:53] LABS: Pathologist Review Reviewed
--- NOTE | 2024-01-05 10:20 | CASEMGMT ---
Addendum entered by Celina Pederson 01/05/24 12:06: Referral to [facility] for POC at this time via [facility]. Original Note: Pt does not require an increase in her oxygen rx. SARWAT LOMELI emailed Rhianna who states pt has a concentrator since 03/2020. SARWAT LOMELI into pt room, pt lying in bed in no distress. Pt states she does not have a concentrator. Discussed further and pt does have a concentrator, she wants a portable concentrator. Made pt aware that she will need to be evaluated for this and it will be added to the order. Pt has portable tanks at home. Pt states her friend will pick her up to take her home, she denies need for hospital van now. Pt denies any homegoing needs at this time.
[2024-01-05] MEDS: ARIPiprazole 5 MG Tablet PO (10:26)
[2024-01-05] MEDS: 0.9% Saline Lock 10 ML Syringe IV (11:14)
--- NOTE | 2024-01-05 12:07 | DS.PCM_ITS ---
Providers Date of Admission: 01/02/24 Date of Discharge: 01/05/24 Primary Care Physician: Anat Gutiérrez, CARMEN Reason For Visit: HYPOXIA, PNA, COPD EXAC Diagnosis Discharge Diagnosis (1) Pneumonia: Status: Acute Code(s): J18.9 - Pneumonia, unspecified organism Plan 58-year-old female admitted with shortness of breath along with URI symptoms for 2 to 3 weeks. For last 1 week her symptoms worsen including chest congestion and cough, waking up at night feeling feverish with sweats. #Community acquired pneumonia possible viral with bacterial secondary infection * Patient feeling much better. She feels her breathing is improved. She is on 2 L of oxygen. * She is mildly tachypneic and tachycardic today. On IV ceftriaxone and azithromycin. * breathing treatment with bronchodilators * titrate oxygen to maintain sats >90% * WBC is elevated at 25.5. * Respiratory panel positive for rhinovirus 01/03: Patient still has shortness of breath and wheezing. Hypoxia got better on room air but then again patient on 2 to 3 L of oxygen. Incentive spirometry and Pep. 01/04: Patient has significant improvement in shortness of breath and wheezing. On baseline 2 L of oxygen. Patient states that she has home oxygen and wanted DuoNeb prescription. Prescription for DuoNeb and tapering dose of prednisone sent to patient's preferred pharmacy. #Acute exacerbation of COPD * In the setting of upper respiratory tract infection due to rhinovirus infection as well as community-acquired pneumonia * On IV Solu-Medrol. Breathing treatments and bronchodilators. Titrate oxygen to saturation above 90%. #URTI due to rhinovirus infection * management as above * #Hypertension: On amlodipine. IV hydralazine as needed 01/03: Blood pressure and heart rate are elevated. Patient on 2.5 mg amlodipine at home increased to 5 mg daily. HCTZ 12.5 mg added. DuoNeb changed to ipratropium because of sinus tachycardia. Metoprolol 25 mg twice daily to control sinus tachycardia. 01/04: Prescription given for HCTZ 12.5 mg daily, amlodipine 10 mg daily and metoprolol 25 mg twice daily for hypertension and sinus tachycardia. #Hyperlipidemia: On statin #Anxiety and depression: Mirtazapine and Abilify #History of alcohol related chronic pancreatitis: On Creon #GERD: On PPI DVT prophylaxis: Lovenox Patient discharged on Levaquin 500 mg daily for 4 more days. Prescriptions also given for DuoNeb nebulization, Mucinex DM, Tessalon Perles, tapering dose of prednisone and amlodipine, metoprolol and HCTZ. Patient is stated she wants prescription for tramadol but denies any acute pain other than lower rib pain from coughing. Earlier prescription of tramadol sent to [facility] retail pharmacy but patient is Medicaid therefore could not be dispensed therefore prescription discontinued. Advised to follow with PCP Discharge medication reconciliation done. Discharge follow-up instructions completed. Discharge process discussed with the patient and all questions were answered to patient's satisfaction. Follow with PCP in 1 to 2 weeks Total time spent, exact 35 minutes on discharge meds reconciliation, examination, coordination of care with nurses and ancillary staff, review of imaging and blood test and discussion with the patient on follow-up instructions. Medications at Discharge Home Medications cholecalciferol (vitamin D3) 50 mcg (2,000 unit) capsule 50 mcg PO DAILY SUPPLEMENT 12/29/18 pantoprazole 40 mg tablet,delayed release 40 mg PO DAILY GERD 08/12/20 albuterol sulfate 90 mcg/actuation aerosol inhaler (Ventolin HFA) 2 puff inhalation Q4H PRN shortness of breath or wheezing #18 grams 11/14/20 aripiprazole 5 mg tablet (Abilify) 5 mg PO DAILY mood 01/22/21 hydroxyzine pamoate 25 mg capsule 25 mg PO QHS SLEEP 06/12/21 mirtazapine 45 mg tablet 45 mg PO QHS sleep 01/16/22 newelu-mbeiuvch-prylmkw 24,000-76,000-120,000 unit capsule,delayed rel (Creon) 2 cap PO BID Check with primary doctor 11/01/22 simvastatin 20 mg tablet 20 mg PO QHS cholesterol 11/01/22 fluticasone fur. 100 mcg-umeclid 62.5 mcg-vilant 25 mcg inhalat.powder (Trelegy Ellipta) 1 inh inhalation Q24H SOB 06/30/23 lorazepam 0.5 mg tablet 0.5 mg PO Q12H PRN ANXIETY 01/02/24 amlodipine 10 mg tablet 10 mg PO DAILY 30 days #30 tabs 01/05/24 benzonatate 200 mg capsule 200 mg PO TID PRN cough 1 week #21 caps 01/05/24 hydrochlorothiazide 12.5 mg capsule 12.5 mg PO BREAKFAST 30 days #30 caps 01/05/24 ipratropium 0.5 mg-albuterol 3 mg (2.5 mg base)/3 mL nebulization soln 3 ml inhalation Q4H PRN shortness of breath or wheezing #90 mL 01/05/24 levofloxacin 500 mg tablet 500 mg PO DAILY 4 days #4 tabs 01/05/24 metoprolol tartrate 25 mg tablet 25 mg PO BID 30 days #60 tabs 01/05/24 nicotine 21 mg/24 hr daily transdermal patch 21 mg transdermal DAILY 28 days #28 ea 01/05/24 prednisone 10 mg tablet 10 mg PO DAILY #30 tabs 01/05/24 pseudoephedrine-guaifenesin ER 120 mg-1,200 mg tab,extend release 12hr (Mucinex D Maximum Strength) 1 tab PO Q12H cold symptoms 1 week #14 tabs 01/05/24 Physical Exam Narrative Patient feels significant pain and shortness of breath. Patient has a history of COPD and is on 2 L of home oxygen. Patient states he also has CPAP at home but she is claustrophobic therefore does not use it. Cough got better on codeine-based cough syrup.Patient is still in leukocytosis. Physical exam General: Alert, Oriented x3, Cooperative HEENT: Atraumatic, PERRLA, EOMI, Normocephalic Oral: No Gingival or Mucosal Lesions/ Ulcerations Neck: Supple, No JVD, Negative Carotid Bruits Chest wall/Lungs: Air entry diminished in bilateral lung bases but much improved. Mild bilateral expiratory wheezing. Cardiovascular: Sinus tachycardia resolved, Normal S1, Normal S2, No M/G/R Abdomen: Bowel Sounds Present, Soft, Non Tender, Non-Distended : No dysuria. No renal angle tenderness. No suprapubic tenderness. Extremities: No edema, Capillary Refill Less than 3 Seconds Skin: No rashes, No breakdown Musculoskeletal: No Tenderness to Palpation of Joints or Extremities Neurological: Cranial nerves II-XII grossly intact, DTR 2+/4. No acute focal neurological deficit. Psych/Mental Status: Anxiety and mild depression Weight / BMI Weight Weight: 131 lb 2.801 oz Body Mass Index (BMI) 23.2 ABG / Lab / Microbiology Data 01/05/24 06:45 01/05/24 06:45 Laboratory: Laboratory Results - last 24 hr 01/02/24 19:25: Diff Path Review Reviewed 01/05/24 06:45: WBC 29.4 H, RBC 5.07, Hgb 13.1, Hct 42.2, MCV 83.2, MCH 25.8 L, MCHC 31.0 L, RDW Std Deviation 48.2 H, RDW Coeff of Min 16.0 H, Plt Count 498 H, MPV 10.1, Neut % (Auto) Not Reportable, Absolute Neuts (auto) 24.7 H, Absolute Lymphs (auto) 3.82, Total Counted 100, Neutrophils % (Manual) 81 H, Band Neutrophils % 3, Lymphocytes % (Manual) 13 L, Monocytes % (Manual) 2, Myelocytes % 1 H, Diff Path Review May foll, Platelet Estimate MOD INC, RBC Morphology NORM C+C Microbiology: Microbiology 01/04/24 05:00 Sputum, Expectorated/Coughed Gram Stain - Final 01/04/24 05:00 Sputum, Expectorated/Coughed Respiratory Culture - Preliminary Presumptive C albicans 01/03/24 00:02 Mucosa - Nasopharyngeal Respiratory Panel (PCR) - Final Rhinovirus 01/02/24 19:25 Mucosa - Nose SARS-CoV-2, Influenza & RSV (PCR) - Final D/C Instructions Discharge Diet: 2000 mg Sodium Diet Weight Bearing Status: Weight bearing as tolerated Call your doctor if you observe: Fever of 101 or Higher, Coldness, Increased Pain, Numbness or Tingling, Change in Color, Inability to urinate, Inability to have a bowel movement, Using more than 1 pad per hour, Shortness of breath, Dizziness, Fainting spells, Swelling in the ankles, Chest pain, Prolonged hiccupping, Increased palpitations (irregular heartbeat) and Calf discomfort When: IN 2 WEEKS Meaningful Use Info Meaningful Use Diagnoses (Choose all that apply): None applicable Discharge Plan Admission Admit Date/Time: 01/02/24 22:11 Primary Reason for Your Visit: Pneumonia with COPD exacerbation Attending Provider: Bert Greenwood Primary Care Provider: Anat Gutiérrez ROSTER CLERK Consulting Providers: Carin Meraz; Anastacia Bonilla Discharge Orders/Prescriptions Prescriptions: New amlodipine 10 mg Tablet 10 mg PO DAILY 30 Days Qty: 30 1RF Rx Instructions: Hold for SBP less than 130 mmHg nicotine 21 mg/24 hr Patch 24 Hour 21 mg transdermal DAILY 28 Days Qty: 28 0RF hydrochlorothiazide 12.5 mg Capsule 12.5 mg PO BREAKFAST 30 Days Qty: 30 2RF Rx Instructions: Hold for SBP less than 130 mmHg metoprolol tartrate 25 mg Tablet 25 mg PO BID 30 Days Qty: 60 0RF Rx Instructions: Hold for heart less than 50 or systolic blood pressure less than 100 mmHg. levofloxacin 500 mg tablet 500 mg PO DAILY 4 Days Qty: 4 0RF benzonatate 200 mg capsule 200 mg PO TID PRN (Reason: cough) 7 Days Qty: 21 0RF prednisone 10 mg tablet 10 mg PO DAILY Qty: 30 0RF Rx Instructions: 40 mg for 3 days 30 mg for 3 days, 20 mg for 3 days,and 10 mg for 3 days ipratropium-albuterol 0.5 mg-3 mg(2.5 mg base)/3 mL solution for nebulization 3 ml inhalation Q4H PRN (Reason: shortness of breath or wheezing) Qty: 90 0RF Rx Instructions: until breathing returns to target peak flow/parameters pseudoephedrine-guaifenesin [Mucinex D Maximum Strength] 120-1,200 mg tablet extended release 12 hr 1 tab PO Q12H 7 Days Qty: 14 0RF Continued albuterol sulfate [Ventolin HFA] 90 mcg/actuation HFA aerosol inhaler 2 puff INHALATION Q4H PRN (Reason: shortness of breath or wheezing) Qty: 18 6RF mirtazapine 45 mg tablet 45 mg PO QHS Trelegy Ellipta 100-62.5-25 mcg blister with device 1 inh inhalation Q24H cholecalciferol (vitamin D3) 2,000 UNIT capsule 50 mcg PO DAILY pantoprazole 40 MG tablet 40 mg PO DAILY aripiprazole [Abilify] 5 mg Tablet 5 mg PO DAILY Creon 24,000-76,000 -120,000 unit capsule,delayed release(DR/EC) 2 cap PO BID simvastatin 20 mg tablet 20 mg PO QHS lorazepam 0.5 mg tablet 0.5 mg PO Q12H PRN (Reason: ANXIETY) Held hydroxyzine pamoate 25 mg Capsule 25 mg PO QHS Hold Instructions: Hold it while taking levofloxacin for drug drug inter action. Discontinued amlodipine 2.5 mg tablet 2.5 mg PO DAILY oxycodone 5 mg tablet 5 mg PO Q8H PRN (Reason: pain) 1 Days Qty: 3 0RF Referrals / Follow Up: Gonzalo Sebastian DO [Med Staff - Active Staff] - Within 2 Weeks JENNIFER NATARAJAN NP-C [Non-Staff] - Anat Gutiérrez NP, ROSTER CLERK-C [Primary Care Provider] - Disposition Disposition (needs filled in before D/C Order can be placed): Home, Self Care Charges/Coding Visit Charges Inpatient E&M: 91419 Disch Hosp >30min
[2024-01-05 13:43] LABS: Anion Gap 7 (5-15); BUN 23 mg/dL (7-18); Calcium,Total 10.5 mg/dL (8.5-10.1); Chloride 99 mmol/L (98-107); Creatinine, Serum 0.82 mg/dL (0.55-1.02); EST Glomerular Filtration Rate 75 mL/min (>60); Est Glom Filt Rate - Afr Amer 91 mL/min (>60); Estimated Creatinine Clearance 60.35 ml/min; Glucose 122 mg/dL (74-106); Sodium Level 132 mmol/L (136-145)
[2024-01-06 15:40] LABS: Pathologist Review Reviewed
== END 2024-01-05 12:54 | disposition home or self-care (01) | DRG 139 ==
LOC: ED 21:53 → MS3 22:37
PROVIDERS: Admitting Provider Family Medicine; Emergency Provider Emergency Medicine; PCP Nurse Practitioner; Visit Provider Internal Medicine
DX: J15.9 Unspecified bacterial pneumonia (principal); J44.0 Chronic obstructive pulmonary disease with (acute) lower respiratory infection; J44.1 Chronic obstructive pulmonary disease with (acute) exacerbation; K86.0 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 chronic pancreatitis; B97.4 Respiratory syncytial virus as the cause of diseases classified elsewhere; Z99.81 Dependence on supplemental oxygen; I10 Essential (primary) hypertension; F32.A Depression, unspecified; E78.5 Hyperlipidemia, unspecified; F17.210 Nicotine dependence, cigarettes, uncomplicated; K21.9 Gastro-esophageal reflux disease without esophagitis; F41.9 Anxiety disorder, unspecified; J06.9 Acute upper respiratory infection, unspecified; Z79.51 Long term (current) use of inhaled steroids
CPT/HCPCS: 36415; 36600; 71045; 71275; 80048; 80053; 80076; 82803; 83605; 83880; 84145; 84484; 85025; 85610; 85730; 87040; 87070; 87205; 87449; 87631; 87633; 93005; 94640; 94667; 94668; 99285; 99406; J7030; Q9967; A4216

== ENCOUNTER 2024-01-19 22:06 | Emergency (ER) | payer MEDICAID, SELFPAY ==
[2024-01-19 22:07] VITALS: BP 161/91; PULSE 114; RESP 20; TEMP 36.4; O2SAT 90; BMI 24.5
--- NOTE | 2024-01-19 22:37 | US_ITS ---
INDICATION: RT FOOT SWELLING EXAMINATION: Ultrasound US Venous Duplex RLE Unilat / Limited TECHNIQUE: Jimenez scale, pulse wave, and color flow Doppler imaging was performed of the lower extremity venous system. The bilateral greater saphenous, common femoral, femoral, and popliteal veins were interrogated. COMPARISON: FINDINGS: There is normal compression, augmentation, and signal throughout the visualized deep lower extremity veins. No mass or fluid collection. US/Venous Duplex Imag/Limited/Uni IMPRESSION: No sonographic evidence of deep venous thrombosis. Electronically Signed: Didier Durand DO at 23:45 EDT Reading Location ID and State: [facility] / [place] Tel [phone], Service support ,
--- NOTE | 2024-01-19 22:38 | EDS_ITS ---
HPI History of Present Illness Chief Complaint: Edema Informant: patient Narrative Narrative: Patient presents with about 4 days of gradual onset pain in the right foot and swelling in that area and up just above the ankle. She has had no injury. She states it just hurts her when she puts weight on it. Moving her foot and leg around when not weightbearing is not painful. She has noticed no rashes or minor skin injuries that could be a nidus for infection. She was just admitted to the hospital recently, she had a 4-day inpatient stay for pneumonia and a COPD exacerbation according to her, she was discharged just over 2 weeks ago, she states she is still a little short of breath more than normal, but she states overall she feels like her breathing and pneumonia have been improving and states I am not worried about that. She has no history of DVT or PE. She is not on any anticoagulation. She states she was put on metoprolol as a new medication during this past admission, and her other antihypertensives have not changed which include lisinopril and amlodipine. She is also asking for something for her anxiety. She states she is very anxious right now, and that is not necessarily something new, she usually takes Ativan for this at nighttime and she has not had it yet tonight and it is 2230. Additionally, she usually does a breathing treatment before bedtime and she is asking for 1 of those. [facility] Medical History Acute on chronic hypoxic respiratory failure Anemia Anxiety and depression Arthritis Asthma Benign hypertension Chronic pancreatitis COPD (chronic obstructive pulmonary disease) GERD (gastroesophageal reflux disease) History of alcohol abuse History of back problems HLD (hyperlipidemia) HPV (human papilloma virus) infection Pneumonia Stage 3 severe COPD by GOLD classification Tobacco abuse Home Medications cholecalciferol (vitamin D3) 50 mcg (2,000 unit) capsule 50 mcg PO DAILY SUPPLEMENT 12/29/18 [History Last Taken 10/31/22] pantoprazole 40 mg tablet,delayed release 40 mg PO DAILY GERD 08/12/20 [History Last Taken 10/31/22] albuterol sulfate 90 mcg/actuation aerosol inhaler (Ventolin HFA) 2 puff inhalation Q4H PRN shortness of breath or wheezing #18 grams 11/14/20 [Rx Last Taken 01/01/24] aripiprazole 5 mg tablet (Abilify) 5 mg PO DAILY mood 01/22/21 [History Last Taken 10/31/22] hydroxyzine pamoate 25 mg capsule 25 mg PO QHS SLEEP 06/12/21 [History Last Taken 01/01/24] mirtazapine 45 mg tablet 45 mg PO QHS sleep 01/16/22 [History Last Taken 01/01/24] bryqbb-rwckpgaw-soffhjg 24,000-76,000-120,000 unit capsule,delayed rel (Creon) 2 cap PO BID Check with primary doctor 11/01/22 [History Last Taken 10/31/22] simvastatin 20 mg tablet 20 mg PO QHS cholesterol 11/01/22 [History Last Taken 01/01/24] fluticasone fur. 100 mcg-umeclid 62.5 mcg-vilant 25 mcg inhalat.powder (Trelegy Ellipta) 1 inh inhalation Q24H SOB 06/30/23 [History Last Taken 01/01/24] lorazepam 0.5 mg tablet 0.5 mg PO Q12H PRN ANXIETY 01/02/24 [History Last Taken 01/01/24] amlodipine 10 mg tablet 10 mg PO DAILY 30 days #30 tabs 01/05/24 [Rx Last Taken Unknown] hydrochlorothiazide 12.5 mg capsule 12.5 mg PO BREAKFAST 30 days #30 caps 01/05/24 [Rx Last Taken Unknown] ipratropium 0.5 mg-albuterol 3 mg (2.5 mg base)/3 mL nebulization soln 3 ml inhalation Q4H PRN shortness of breath or wheezing #90 mL 01/05/24 [Rx Last Taken Unknown] levofloxacin 500 mg tablet 500 mg PO DAILY 4 days #4 tabs 01/05/24 [Rx Last Taken Unknown] metoprolol tartrate 25 mg tablet 25 mg PO BID 30 days #60 tabs 01/05/24 [Rx Last Taken Unknown] pseudoephedrine-guaifenesin ER 120 mg-1,200 mg tab,extend release 12hr (Mucinex D Maximum Strength) 1 tab PO Q12H cold symptoms 1 week #14 tabs 01/05/24 [Rx Last Taken Unknown] tramadol 50 mg tablet 50 mg PO Q6H PRN pain 2 days #8 tabs 01/19/24 [Rx Last Taken Unknown] Allergy/AdvReac Type Severity Reaction Status Date / Time clindamycin Allergy Intermediate Hives Verified 01/19/24 22:09 Penicillins Allergy Hives Verified 01/19/24 22:09 sulfamethoxazole Allergy Other Verified 01/19/24 22:09 [From Bactrim] trimethoprim [From Bactrim] Allergy Other Verified 01/19/24 22:09 hydrocodone [From [place]] AdvReac Itching Verified 01/19/24 22:09 Family History Mother Diabetes Hypertension Heart disease High cholesterol Arthritis Thyroid disorder Brother Hypertension Sister Cancer cervical Thyroid disorder Father Kidney disease Daughter Thyroid disorder Surgical History History of appendectomy History of colonoscopy History of tubal ligation Social History household members: family Smoking Status: Current every day smoker tobacco type: cigarettes Tobacco: How many years used: 30 second hand exposure: Yes alcohol intake: former details: Sober since 2020. substance use type: does not use caffeine: Yes ROS ROS ED Constitutional Constitutional ED: Denies chills or fever(s) Cardiovascular Cardiovascular: Denies chest pain Respiratory/Chest Respiratory/Chest: Reports cough and dyspnea on exertion Musculoskeletal Musculoskeletal: Reports as per HPI and extremity pain; Denies neck pain Integumentary Denies Abrasions, rash or wounds Neurologic Neurologic: Denies paresthesias or weakness Psychiatric Psychiatric: Reports anxiety; Denies suicidal ideation EXAM Physical Exam Const Vital Signs: 01/19/24 22:07 01/19/24 23:14 01/19/24 23:33 Temperature 97.6 F L 98 F Temperature Source Temporal Oral Pulse Rate 114 H 102 H 104 H Respiratory Rate 20 H 24 H 28 H Respiratory Effort Respiratory Pattern Normal Blood Pressure 161/91 H 123/105 H Blood Pressure Mean 114 111 Pulse Ox 90 94 Oxygen Delivery Method Room Air Room Air 01/19/24 23:39 Temperature Temperature Source Pulse Rate Respiratory Rate Respiratory Effort Short of Breath Respiratory Pattern Normal Blood Pressure Blood Pressure Mean Pulse Ox Oxygen Delivery Method Positive well nourished and well developed General Appearance ED: well developed and NAD Neck full ROM and supple Resp normal respiratory effort Effort and Inspection: able to speak in complete sentences Back/Spine normal ROM and normal to inspection Extremity full ROM Extremity Narrative: There is mild edema in the right ankle that progresses up a couple of johana timeters, whereas on the left it is normal. The right ankle moves without any pain actively. There is no erythema or excessive warmth. The foot is normal- appearing, she indicates the area of pain is in the posterior aspect of the arch and into the hindfoot, seems more medially but she indicates it is the entire area, there is no area of reproducible tenderness, no erythema or rash, or other lesion to suggest obvious infection or injury. The midfoot and forefoot are normal-appearing without edema. Dorsalis pedis pulses 2+. Neuro oriented x3, no focal motor deficits and no sensory deficits noted Sensorium / Orientation: alert Psych mental status grossly normal and thought process normal Mood & Affect: anxious Skin no wounds Rashes: no rashes MDM MDM MDM Narrative Medical decision making narrative: Patient has some swelling about the ankle without pain in the ankle, pain seemingly in the right hindfoot only, and only when she bears weight. She states she has sprained her right ankle many times in the past but not recently. Is possible this is a bony or soft tissue injury that was seemingly minor at the time and she did not notice it, so I obtained an x-ray of the right foot. 3 views of my interpretation negative for anything acute. Also since she was recently admitted to the hospital, although she had heparin prophylaxis that was her main risk factor for DVT so I obtained a venous duplex Doppler of the right lower extremity, and per the explosive ordnance disposal technician's preliminary interpretation, it is negative for any clots. At her request, she was given a duo nebulizer treatment, and oral Ativan, and an oral tramadol. She is okay going home and asking for a prescription for the tramadol for pain which I think is fine. At this time, my clinical exam is very benign and I am at a very low suspicion for an emergent limb threatening process here such as a septic arthritis and I do not think she needs any arthrocentesis or blood tests right now. This may be an inflammatory arthritis of her ankle causing this, referring pain to the foot, or some other podiatric issue. Will give her information for podiatry to follow-up with that she does not have resolution with supportive care, but at this time I think she can continue her medications as prescribed, since I do not think the metoprolol is causing this, and if the amlodipine was causing it it would be more likely to be bilateral. Management Discussion w/another healthcare provider: Other (vascular u/s explosive ordnance disposal technician) Discharge Plan Triage Chief Complaint: Edema ED Provider: Erik Gomez Dx/Rx/DC Orders Clinical Impression: Acute pain of right foot, Right ankle swelling Instructions: Understanding Heel Pain Prescriptions: New tramadol 50 mg tablet 50 mg PO Q6H PRN (Reason: pain) 2 Days Qty: 8 0RF No Action albuterol sulfate [Ventolin HFA] 90 mcg/actuation HFA aerosol inhaler 2 puff INHALATION Q4H PRN (Reason: shortness of breath or wheezing) Qty: 18 6RF mirtazapine 45 mg tablet 45 mg PO QHS Trelegy Ellipta 100-62.5-25 mcg blister with device 1 inh inhalation Q24H cholecalciferol (vitamin D3) 2,000 UNIT capsule 50 mcg PO DAILY pantoprazole 40 MG tablet 40 mg PO DAILY aripiprazole [Abilify] 5 mg Tablet 5 mg PO DAILY hydroxyzine pamoate 25 mg Capsule 25 mg PO QHS Hold Instructions: Hold it while taking levofloxacin for drug drug interaction. Creon 24,000-76,000 -120,000 unit capsule,delayed release(DR/EC) 2 cap PO BID simvastatin 20 mg tablet 20 mg PO QHS lorazepam 0.5 mg tablet 0.5 mg PO Q12H PRN (Reason: ANXIETY) amlodipine 10 mg Tablet 10 mg PO DAILY 30 Days Qty: 30 1RF Rx Instructions: Hold for SBP less than 130 mmHg hydrochlorothiazide 12.5 mg Capsule 12.5 mg PO BREAKFAST 30 Days Qty: 30 2RF Rx Instructions: Hold for SBP less than 130 mmHg metoprolol tartrate 25 mg Tablet 25 mg PO BID 30 Days Qty: 60 0RF Rx Instructions: Hold for heart less than 50 or systolic blood pressure less than 100 mmHg. levofloxacin 500 mg tablet 500 mg PO DAILY 4 Days Qty: 4 0RF ipratropium-albuterol 0.5 mg-3 mg(2.5 mg base)/3 mL solution for nebulization 3 ml inhalation Q4H PRN (Reason: shortness of breath or wheezing) Qty: 90 0RF Rx Instructions: until breathing returns to target peak flow/parameters pseudoephedrine-guaifenesin [Mucinex D Maximum Strength] 120-1,200 mg tablet extended release 12 hr 1 tab PO Q12H 7 Days Qty: 14 0RF Primary Care Provider: Anat Gutiérrez [facility] Referrals: Alden Monroy DPM [Med Staff - Active Staff] - 1 Week if not improving Anat Gutiérrez [facility], [facility] [Primary Care Provider] - Disposition Disposition: Home, Self Care
--- NOTE | 2024-01-19 22:48 | RAD_ITS ---
INDICATION: pain EXAMINATION/TECHNIQUE: X-RAY - RIGHT XR Foot Min 3 Views COMPARISON: FINDINGS: SOFT TISSUES: No soft tissue swelling or gas. No radiopaque foreign body. BONES/JOINTS: No acute fracture or subluxation.. Normal alignment. Preservation of the joint space.. No sclerotic or destructive changes observed. RAD/Foot min 3 Views IMPRESSION: No acute bone injury. Electronically Signed: Didier Durand DO at 23:58 EDT ,
[2024-01-19] MEDS: LORazepam 1 MG Tablet PO (22:51)
[2024-01-19] MEDS: traMADol 50 MG Tablet PO (22:51)
[2024-01-19] MEDS: Ipratropium/Albuterol Sulfate 3 ML AMPUL.NEB INHALATION (23:12)
[2024-01-19 23:14] VITALS: PULSE 102; RESP 24
[2024-01-19 23:33] VITALS: BP 123/105; PULSE 104; RESP 28; TEMP 36.6; O2SAT 94
[2024-01-19 23:56] VITALS: BP 174/81; PULSE 105; RESP 20; TEMP 36.6; O2SAT 95
== END 2024-01-20 00:08 | disposition home or self-care (01) ==
PROVIDERS: Emergency Provider Emergency Medicine; PCP Nurse Practitioner; Visit Provider Emergency Medicine
DX: M79.671 Pain in right foot (principal); J44.9 Chronic obstructive pulmonary disease, unspecified; F41.9 Anxiety disorder, unspecified; F17.210 Nicotine dependence, cigarettes, uncomplicated; M25.571 Pain in right ankle and joints of right foot; M79.89 Other specified soft tissue disorders; R05.9 Cough, unspecified; R06.09 Other forms of dyspnea; Z98.51 Tubal ligation status; Z90.49 Acquired absence of other specified parts of digestive tract; K21.9 Gastro-esophageal reflux disease without esophagitis; I10 Essential (primary) hypertension
CPT/HCPCS: 73630; 93971; 94640; 99283

== ENCOUNTER 2024-06-02 14:25 | Emergency (ER) | payer MEDICAID, SELFPAY ==
[2024-06-02 14:27] VITALS: BP 81/61; PULSE 89; RESP 18; TEMP 36.3; O2SAT 93; BMI 24.3
--- NOTE | 2024-06-02 15:40 | VDLE_ITS ---
Reason For Study: RLE Swelling RIGHT LEFT GSV is normal. CFV is compressible, spontaneous, phasic, CFV is compressible, spontaneous, phasic, competent, and demonstrates normal competent and demonstrates normal augmentation. augmentation. FV is compressible, spontaneous, phasic, competent and demonstrates normal augmentation. POP V is compressible, spontaneous, phasic, competent and demonstrates normal augmentation. T/P Trunk is compressible. PTV is compressible. RT PerV is compressible. Procedure This is a venous duplex using B-mode, color flow and spectral Doppler. Exam performed in department. The exam was diagnostic. A preliminary report was called and/or faxed to Dr. Huerta. VL/Venous Duplex US, Unilateral Interpretation Summary Deep veins of the right lower extremity are patent and compressible segmentally . There is no evidence of right lower extremity deep vein thrombosis. Valvular competence galo ears intact within the proximal deep venous system on the right . The right great saphenous vein a ppears patent and compressible segmentally. The left common femoral vein is patent and compressib le . Ordering Physician: Víctor Huerta Referring Physician: Annmarie Hay Performed By: Som Mcneil, KEENA
--- NOTE | 2024-06-02 15:41 | EDS_ITS ---
HPI History of Present Illness Chief Complaint: Edema Informant: patient Narrative Narrative: 59-year-old female presenting to the emergency room with reported concern for DVT. She states over the past couple days her right foot has become swollen and occasionally red and occasionally throbs. It is better at nighttime when she keeps it elevated. She states she has had a history of gout to previous times. She called her route sales driver office and because the route sales driver is on vacation advised her to come to emergency out of concern for DVT. She has never had DVT or PE before. Patient states that she has a history of COPD and continues to be an avid smoker. She drinks a couple beers each evening to relax. She denies any problems with her kidneys but then states that she has renal issues and that she needs to drink plenty of fluids. Her last creatinine earlier this year was normal. [facility] Medical History HLD (hyperlipidemia) History of alcohol abuse Pneumonia Acute on chronic hypoxic respiratory failure Stage 3 severe COPD by GOLD classification Asthma COPD (chronic obstructive pulmonary disease) Arthritis History of back problems Anxiety and depression Chronic pancreatitis HPV (human papilloma virus) infection Anemia Tobacco abuse GERD (gastroesophageal reflux disease) Benign hypertension Home Medications ?Medication ?Instructions ?Recorded ?Last Taken ?Type cholecalciferol (vitamin D3) 50 50 mcg PO DAILY SUPPLEMENT 12/29/18 10/31/22 History mcg (2,000 unit) capsule pantoprazole 40 mg tablet,delayed 40 mg PO DAILY GERD 08/12/20 10/31/22 History release aripiprazole 5 mg tablet (Abilify) 5 mg PO DAILY mood 01/22/21 10/31/22 History hydroxyzine pamoate 25 mg capsule 25 mg PO QHS SLEEP 06/12/21 01/01/24 History mirtazapine 45 mg tablet 45 mg PO QHS sleep 01/16/22 01/01/24 History simvastatin 20 mg tablet 20 mg PO QHS cholesterol 11/01/22 01/01/24 History hydrochlorothiazide 12.5 mg capsule 12.5 mg PO BREAKFAST 30 days #30 01/05/24 Unknown Rx caps metoprolol tartrate 25 mg tablet 25 mg PO BID 30 days #60 tabs 01/05/24 Unknown Rx amlodipine 10 mg tablet 5 mg PO DAILY 01/26/24 Unknown History ipratropium 0.5 mg-albuterol 3 mg 3 ml inhalation Q4H PRN shortness 01/26/24 Unknown Rx (2.5 mg base)/3 mL nebulization of breath or wheezing #90 mL soln lisinopril 10 mg tablet 10 mg PO QDAY 01/26/24 Unknown History albuterol sulfate 90 mcg/actuation 2 puff inhalation Q4H PRN 05/11/24 Unknown Rx aerosol inhaler (Ventolin HFA) shortness of breath or wheezing #18 grams fluticasone fur. 200 mcg-umeclid 1 inh inhalation DAILY #3 ea 05/11/24 Unknown Rx 62.5 mcg-vilant 25 mcg inhalat.powder (Trelegy Ellipta) lorazepam 0.5 mg tablet 0.5 mg PO BID 05/11/24 Unknown History Allergy/AdvReac Type Severity Reaction Status Date / Time clindamycin Allergy Intermediate Hives Verified 06/02/24 14:27 Penicillins Allergy Hives Verified 06/02/24 14:27 sulfamethoxazole (From Allergy Other Verified 06/02/24 14:27 Bactrim) trimethoprim (From Bactrim) Allergy Other Verified 06/02/24 14:27 hydrocodone (From [place]) AdvReac Itching Verified 06/02/24 14:27 Family History Mother Diabetes Hypertension Heart disease High cholesterol Arthritis Thyroid disorder Brother Hypertension Sister Cancer cervical Thyroid disorder Father Kidney disease Daughter Thyroid disorder Surgical History History of tubal ligation History of colonoscopy History of appendectomy Social History household members: family Smoking Status: Current every day smoker tobacco type: cigarettes Tobacco: How many years used: 30 second hand exposure: Yes alcohol intake: former details: Sober since 2020. substance use type: does not use caffeine: Yes ROS ROS ED Constitutional Constitutional ED: Denies chills, fever(s) or weight loss Eyes Eyes: Denies change in vision or diplopia ENT ENT ED: Denies ear pain, rhinorrhea or sore throat Cardiovascular Cardiovascular: Denies chest pain, orthopnea, palpitations or racing heartbeat Respiratory/Chest Respiratory/Chest: Denies cough, dyspnea or orthopnea Gastrointestinal Gastrointestinal: Denies abdominal pain, diarrhea, nausea or vomiting Genitourinary Genitourinary ED: Denies dysuria, hematuria or urinary frequency Musculoskeletal Musculoskeletal: Reports other Details: See history of present illness ; Denies arthralgias or myalgias Integumentary Denies abscess or rash Neurologic Neurologic: Denies headache(s) or weakness Psychiatric Psychiatric: Denies anxiety, depression, suicidal ideation or suicidal thoughts Endocrine Endocrinology: Denies polydipsia, polyphagia or polyuria Allergic/Immunologic Allergic/Immunologic ED: Denies mouth swelling, tongue swelling or urticaria EXAM Physical Exam Const Vital Signs: 06/02/24 14:27 06/02/24 16:03 06/02/24 16:03 Temperature 97.4 F L Temperature Source Temporal Pulse Rate 89 85 Respiratory Rate 18 Respiratory Effort Normal Non-Labored Respiratory Pattern Normal Blood Pressure 81/61 L 146/71 H Blood Pressure Mean 67 96 Pulse Ox 93 Oxygen Delivery Method Room Air Positive well nourished and well developed General Appearance ED: well developed and NAD HEENT Reports normocephalic, head/scalp atraumatic and moist mucous membranes Eyes PERRL and EOMs intact bilaterally Neck no lymphadenopathy, supple and no JVD Resp normal respiratory effort and clear to auscultation bilaterally Cardio regular rate, regular rhythm and no murmurs GI normal to inspection, nondistended, normoactive bowel sounds and non-tender Palpation: soft Back/Spine no CVA tenderness and normal ROM Extremity Extremity Narrative: The right dorsum of the foot is swollen approximately to the level of the ankle. There is increased warmth compared to the left. There is no significant erythema. No lymphangitic streaking. There is no swelling above the ankle. The calf is nontender. There are no palpable cords. Neuro oriented x3 and CN's II-XII intact bilaterally Sensorium / Orientation: alert Motor Exam: strength 5/5 throughout Psych mental status grossly normal Mood & Affect: Negative for depressed or tearful Skin no rashes or lesions noted and no wounds MDM MDM MDM Narrative Medical decision making narrative: Differential diagnose includes but not limited to gout cellulitis peripheral vascular disease DVT. Duplex ultrasound was obtained. This is negative for DVT. Patient will be started on a short course of prednisone. Follow-up as needed return if worsening or concerns History & Record Review Discussion w/independent historian: Patient Discharge Plan Triage Chief Complaint: Edema ED Provider: Víctor Huerta Dx/Rx/DC Orders Prescriptions: No Action mirtazapine 45 mg tablet 45 mg PO QHS ipratropium-albuterol 0.5 mg-3 mg(2.5 mg base)/3 mL solution for nebulization 3 ml inhalation Q4H PRN (Reason: shortness of breath or wheezing) Qty: 90 0RF Rx Instructions: until breathing returns to target peak flow/parameters amlodipine 10 mg tablet 5 mg PO DAILY Rx Instructions: Hold for SBP less than 130 mmHg lisinopril 10 mg tablet 10 mg PO QDAY lorazepam 0.5 mg tablet 0.5 mg PO BID albuterol sulfate [Ventolin HFA] 90 mcg/actuation HFA aerosol inhaler 2 puff INHALATION Q4H PRN (Reason: shortness of breath or wheezing) Qty: 18 11RF Trelegy Ellipta 200-62.5-25 mcg blister with device 1 inh inhalation DAILY Qty: 3 3RF cholecalciferol (vitamin D3) 2,000 UNIT capsule 50 mcg PO DAILY pantoprazole 40 MG tablet 40 mg PO DAILY aripiprazole [Abilify] 5 mg Tablet 5 mg PO DAILY hydroxyzine pamoate 25 mg Capsule 25 mg PO QHS simvastatin 20 mg tablet 20 mg PO QHS hydrochlorothiazide 12.5 mg Capsule 12.5 mg PO BREAKFAST 30 Days Qty: 30 2RF Rx Instructions: Hold for SBP less than 130 mmHg metoprolol tartrate 25 mg Tablet 25 mg PO BID 30 Days Qty: 60 0RF Rx Instructions: Hold for heart less than 50 or systolic blood pressure less than 100 mmHg. Primary Care Provider: Annmarie Hay Referrals: Annmarie Hay MD [Primary Care Provider] - Print Language: Kazakh
[2024-06-02 16:03] VITALS: BP 146/71; PULSE 85
[2024-06-02] MEDS: oxyCODONE 5 MG Tablet PO (16:20)
== END 2024-06-02 16:38 | disposition home or self-care (01) ==
PROVIDERS: Emergency Provider Emergency Medicine; PCP Internal Medicine; Visit Provider Emergency Medicine
DX: R60.0 Localized edema (principal); J44.9 Chronic obstructive pulmonary disease, unspecified; I10 Essential (primary) hypertension; E78.5 Hyperlipidemia, unspecified; F17.210 Nicotine dependence, cigarettes, uncomplicated; Z98.51 Tubal ligation status; K21.9 Gastro-esophageal reflux disease without esophagitis
CPT/HCPCS: 93971; 99282

== ENCOUNTER → 2024-11-24 | Outpatient (CLI) | payer MEDICAID, SELFPAY | END | disposition home or self-care (01) | LOC: PSN 08:17 | PROVIDERS: PCP Internal Medicine; Referring Provider Nurse Practitioner Acute Care; Visit Provider Nurse Practitioner Acute Care | DX: J43.2 Centrilobular emphysema (principal) | CPT/HCPCS: 94060; 94726; 94729 ==

== ENCOUNTER 2024-12-04 15:50 | Inpatient (IN) | payer MEDICAID, SELFPAY ==
[2024-12-04] VITALS (15 sets, daily range): BP systolic 129–160; BP diastolic 62–102; PULSE 75–126; RESP 14–27; TEMP 36.2–36.8; O2SAT 76–98; BMI 23.0; BMI 24.4
--- NOTE | 2024-12-04 16:06 | RAD_ITS ---
PROCEDURE: CHEST PA AND LATERAL REASON FOR EXAM: Cough, hypoxia TECHNIQUE: Frontal and lateral views of the chest. COMPARISON: 01/02/2024 FINDINGS: Cardiomediastinal silhouette is within normal limits. No focal consolidation, sizeable pleural effusion or pneumothorax. Moderate emphysema. RAD/Chest PA and Lateral IMPRESSION: No acute airspace abnormality. Emphysema. Reading Location: [facility]
--- NOTE | 2024-12-04 16:07 | EKG12_ITS ---
Test Reason : SOB Blood Pressure : */* mmHG Vent. Rate : 121 BPM Atrial Rate : 121 BPM P-R Int : 160 ms QRS Dur : 78 ms QT Int : 328 ms P-R-T Axes : 85 90 86 degrees QTcB Int : 465 ms Sinus tachycardia Rightward axis Septal infarct , age undetermined Abnormal ECG baseline artifact Confirmed by Nima Cotter [id number]), business editor LEONARD BAUTISTA ([id number]) on 12/05/2024 10:48:28 AM Referred By: Confirmed By: Nima Cotter
--- NOTE | 2024-12-04 16:11 | ED.VIS.DYS ---
HPI History of Present Illness Chief Complaint: Shortness of Breath Informant: patient Onset/Context/Timing Onset: Days Context: gradual Timing: Continuous Quality: Positive for Wheezing Current Severity: Moderate Maximum Severity: Moderate Worsened by: Coughing Relieved by: Oxygen Associated Symptoms cough and white sputum Chest Pain: Positive for None Narrative Narrative: 59-year-old female history of COPD and asthma still smokes. Chronic pain management chronic pancreatitis. Recently had a pancreatic block done at the [facility] was discharged the same day. She is on 2 L oxygen at home as needed currently on 2 L she is 76% and hypoxic. States that she has been coughing with shortness of breath for the last 2 days. Has had limited nausea and vomiting. She took Zofran at home prior to arrival. States that the cough is whitish sputum. Denies any obvious exposure. Denies recent hospitalization. Denies chest pain or hemoptysis. She has been wheezing at home. She continues to smoke. PE Risk Factors: Negative for Cancer, OCP + Smoking + > 35, Prior DVT or PE, Recent immobilization, Recent surgery or Recent travel Recent Illness/Hospitalization: No PFSH PFS Medical History Pancreatic stones HLD (hyperlipidemia) History of alcohol abuse Pneumonia Acute on chronic hypoxic respiratory failure Stage 3 severe COPD by GOLD classification Asthma COPD (chronic obstructive pulmonary disease) Arthritis History of back problems Anxiety and depression Chronic pancreatitis HPV (human papilloma virus) infection Anemia Tobacco abuse GERD (gastroesophageal reflux disease) Benign hypertension Home Medications ?Medication ?Instructions ?Recorded ?Last Taken ?Type cholecalciferol (vitamin D3) 50 50 mcg PO DAILY SUPPLEMENT 12/29/18 10/31/22 History mcg (2,000 unit) capsule pantoprazole 40 mg tablet,delayed 40 mg PO DAILY GERD 08/12/20 10/31/22 History release aripiprazole 5 mg tablet (Abilify) 5 mg PO DAILY mood 01/22/21 10/31/22 History hydroxyzine pamoate 25 mg capsule 25 mg PO QHS SLEEP 06/12/21 01/01/24 History mirtazapine 45 mg tablet 45 mg PO QHS sleep 01/16/22 01/01/24 History simvastatin 20 mg tablet 20 mg PO QHS cholesterol 11/01/22 01/01/24 History hydrochlorothiazide 12.5 mg capsule 12.5 mg PO BREAKFAST 30 days #30 01/05/24 Unknown Rx caps metoprolol tartrate 25 mg tablet 25 mg PO BID 30 days #60 tabs 01/05/24 Unknown Rx amlodipine 10 mg tablet 5 mg PO DAILY 01/26/24 Unknown History ipratropium 0.5 mg-albuterol 3 mg 3 ml inhalation Q4H PRN shortness 01/26/24 Unknown Rx (2.5 mg base)/3 mL nebulization of breath or wheezing #90 mL soln lisinopril 10 mg tablet 10 mg PO QDAY 01/26/24 Unknown History albuterol sulfate 90 mcg/actuation 2 puff inhalation Q4H PRN 05/11/24 Unknown Rx aerosol inhaler (Ventolin HFA) shortness of breath or wheezing #18 grams lorazepam 0.5 mg tablet 0.5 mg PO BID 05/11/24 Unknown History fluticasone fur. 200 mcg-umeclid 1 inh inhalation DAILY #3 ea 08/29/24 Unknown Rx 62.5 mcg-vilant 25 mcg inhalat.powder (Trelegy Ellipta) Allergy/AdvReac Type Severity Reaction Status Date / Time clindamycin Allergy Intermediate Hives Verified 12/04/24 15:55 Penicillins Allergy Hives Verified 12/04/24 15:55 sulfamethoxazole (From Allergy Other Verified 12/04/24 15:55 Bactrim) trimethoprim (From Bactrim) Allergy Other Verified 12/04/24 15:55 hydrocodone (From [place]) AdvReac Itching Verified 12/04/24 15:55 Family History Mother Diabetes Hypertension Heart disease High cholesterol Arthritis Thyroid disorder Brother Hypertension Sister Cancer cervical Thyroid disorder Father Kidney disease Daughter Thyroid disorder Family History no significant family his Surgical History History of tubal ligation History of colonoscopy History of appendectomy Surgical History no surgical history Social History household members: family Smoking Status: Heavy Smoker (>10/day) Tobacco: How many years used: 30 second hand exposure: Yes alcohol intake: former details: Sober since 2020. substance use type: does not use caffeine: Yes ROS ROS ED ROS Narrative Cough. White sputum. Shortness of breath. Wheezing. Constitutional Constitutional ED: Denies chills or fever(s) Eyes Eyes: Denies blurry vision ENT ENT ED: Denies ear pain Cardiovascular Cardiovascular: Denies chest pain Respiratory/Chest Respiratory/Chest: Reports cough, dyspnea and sputum Gastrointestinal Gastrointestinal: Reports nausea and vomiting; Denies abdominal pain, constipation, diarrhea or melena Genitourinary Genitourinary ED: Denies dysuria or hematuria Musculoskeletal Musculoskeletal: Denies arthralgias or back pain Integumentary Denies abscess or Abrasions Neurologic Neurologic: Denies headache(s) Psychiatric Psychiatric: Denies anxiety Endocrine Endocrinology: Denies cold intolerance Hematologic/Lymphatic Hematologic/Lymphatic: Denies easy bleeding, easy bruising or lymphadenopathy Allergic/Immunologic Allergic/Immunologic ED: Denies mouth swelling, tongue swelling or urticaria EXAM Physical Exam Narrative Exam Narrative: 59-year-old female sitting upright in bed on oxygen. On 2 L she is 76%. On 5 L currently she is 86%. She does not seem septic or toxic. She does have a dry cough. H EENT exam pupils round reactive light. Extra motions are intact. Moist mucous membranes. Neck nontender no JVD. No lymphadenopathy. Lungs prolonged expiratory phase. Inspiratory expiratory wheezing. No rales or rhonchi. Equal symmetric. Heart tachycardic 125 no murmur. Chest wall ribs nontender. Abdomen soft nontender. No peritoneal signs. No distention. Back nontender. Moving all 4 extremities. Normal wound care technician strength. Normal dorsi plantarflexion. Calves are nontender without edema or cords. Neurologically she is awake alert answering questions following commands. Const Vital Signs: 12/04/24 15:51 12/04/24 15:54 12/04/24 16:02 Temperature 97.2 F L 97.2 F L Temperature Source Temporal Temporal Pulse Rate 126 H 126 H Respiratory Rate 24 H 24 H Respiratory Effort Short of Breath Respiratory Pattern Blood Pressure 160/102 H 160/102 H Blood Pressure Mean 121 121 Pulse Ox 76 76 Oxygen Delivery Method Non-Rebreather @ 15L/min Nasal Cannula Nasal Cannula Oxygen Flow Rate (L/min) 2 4 12/04/24 16:07 12/04/24 16:43 12/04/24 16:54 Temperature 97.8 F Temperature Source Temporal Pulse Rate 116 H 114 H Respiratory Rate 21 H 26 H Respiratory Effort Respiratory Pattern Tachypnea Blood Pressure 148/62 H Blood Pressure Mean 90 Pulse Ox 90 91 Oxygen Delivery Method CPAP Oxygen Flow Rate (L/min) 12/04/24 17:12 12/04/24 18:00 Temperature 97.8 F 97.7 F L Temperature Source Temporal Oral Pulse Rate 116 H 108 H Respiratory Rate 27 H 25 H Respiratory Effort Respiratory Pattern Blood Pressure 146/77 H 129/93 H Blood Pressure Mean 100 105 Pulse Ox 91 91 Oxygen Delivery Method Nasal Cannula Oxygen Flow Rate (L/min) 5 Positive well nourished and well developed; Negative for obese, cachectic, contractures or unkempt General Appearance ED: well developed and NAD; Negative for unkempt, cachectic, contractures or pallor Nutritional Appearance: Negative for cachectic or obese HEENT Reports moist mucous membranes; Denies dry mucous membranes atraumatic; Negative for trauma or tenderness Mouth ED: No dry mucous membranes Mouth: No dry mucous membranes Eyes PERRL and EOMs intact bilaterally General Eye ED: Negative for pale conjunctiva or scleral icterus Neck no lymphadenopathy, supple, no meningeal signs and no JVD General: Negative for tenderness Lymph Lymphatic: Negative for other Chest Wall Chest: Negative for other Resp No normal respiratory effort and No clear to auscultation bilaterally Resp Narrative: Bilateral wheezing. Inspiratory and expiratory. Prolonged expiratory phase. Dry cough. Auscultation: wheezes Cardio regular rhythm, S1 normal heart sound, S2 normal heart sound and no murmurs; Negative for regular rate Rate: tachycardic; Negative for bradycardia Rhythm: Negative for abnormal rhythm GI non-tender, non-distended and no masses Auscultation: normoactive bowel sounds Palpation: soft; Negative for tender, guarding, mass or rebound tenderness present Back/Spine no CVA tenderness and normal to inspection Extremity normal to inspection General Extremety ED: Negative for edema or tenderness General Extremity: Negative for edema Neuro oriented x3 and CN's II-XII intact bilaterally Sensorium / Orientation: alert, oriented to person, oriented to place and oriented to time; Negative for orientation impaired, confused or lethargic Speech: speech normal Motor Exam: strength 5/5 throughout Psych mental status grossly normal Appearance: Negative for unkempt Attitude: No agitated and No other Mood & Affect: Negative for depressed, anxious or tearful Skin no wounds and skin turgor normal General Skin Exam: Negative for jaundice or pallor Lesions: no lesions Rashes: no rashes MDM MDM MDM Narrative Medical decision making narrative: 59-year-old COPD patient with acute exacerbation possibly secondary underlying influenza versus pneumonia versus other. Chest x-ray and labs will be obtained. COVID and flu will be tested for. Treated with aerosols both DuoNeb and albuterol and IV Solu-Medrol. Reassess. May need to be admitted. Repeat exam at 5:43 PM patient is still wheezing. She is doing better after the aerosol and Solu-Medrol but I think she will need to be admitted for COPD exacerbation. She remains tachycardic and dyspneic. Hospitalist is on page. History & Record Review Discussion w/independent historian: Patient Additional record(s) reviewed:: Prior inpatient record, Prior outpatient record, Prior ED visit and Prior labs Lab Data Attestation: I reviewed the patient's lab results. Lab results narrative: CBC shows a white count of 14. H&H of 14 and 43. Platelets 271. Chemistries show a gap of 13. Normal BUN of 10 and creatinine 0.9. Glucose 118. Chest x-ray chronic changes consistent with COPD. No pneumonia. Lipase normal at 25. Labs: Laboratory Results - last 24 hr 12/04/24 16:22 WBC 14.1 H RBC 5.24 Hgb 14.1 Hct 43.7 MCV 83.4 MCH 26.9 L MCHC 32.3 RDW Std Deviation 44.6 H RDW Coeff of Min 14.7 H Plt Count 271 MPV 10.2 Immature Gran % (Auto) 0.800 Neut % (Auto) 80.5 H Lymph % (Auto) 6.8 L Gray % (Auto) 10.4 H Eos % (Auto) 0.6 Baso % (Auto) 0.9 Absolute Neuts (auto) 11.4 H Absolute Lymphs (auto) 0.96 Nucleated RBC % 0 Sodium 137 Potassium 4.2 Chloride 99 Carbon Dioxide 24.6 Anion Gap 13 BUN 10 Creatinine 0.92 Estim Creat Clear Calc 53.12 Est GFR (MDRD) Non-Af 71 BUN/Creatinine Ratio 10.4 Glucose 118 H Calcium 9.2 Lipase 25 Radiography Chest X-Ray - ED: 2 View, Read by ED Physician, Heart, Lungs, Mediastinum, Bony Structures, No Acute Disease and Chronic Changes Diagnostic Testing: Clinical Impression(s) from Imaging Studies Chest X-Ray 12/04/24 16:06 IMPRESSION: No acute airspace abnormality. Emphysema. Reading Location: [facility] Chest x-ray, 2 views, AP and lateral, interpreted by myself shows normal cardiac silhouette. Normal lung sherman. Chronic changes consistent with COPD. No pneumonia. No pulmonary edema. No effusions. Chronic scarring. Rhythm Strip Rhythm Strip: Sinus Tach Rate: 121 Ectopy: None EKG Initial EKG: Attestation: I personally reviewed and interpreted this EKG as follows: Interpretation: Sinus Tachycardia Comments: Sinus tachycardia rate of 121. No acute signs of OR or ischemia. No dysrhythmia. Discharge Plan Dx/Rx/DC Orders Clinical Impression: Viral URI, COPD exacerbation, Hypoxia, Chronic pancreatitis Disposition Disposition: Acute Care [facility]
[2024-12-04] MEDS: MethylPREDNISolone 125 MG/2 ML Vial IV (16:22)
[2024-12-04 16:37] LABS: Absolute Lymphocyte Count 0.96 X10^3/uL (0.83-4.51); Absolute Neutrophil Count 11.4 X10^3/uL (2.0-7.7); Basophil# 0.12 X10^3/uL; Basophil% 0.9 % (0-1); Eosinophil# 0.08 X10^3/uL; Eosinophils% 0.6 % (0-5); Hematocrit 43.7 % (37-47); Hemoglobin 14.1 g/dL (12.0-15.0); Lymphocyte # 0.96 X10^3/ul (0.83-4.51); Lymphocyte % 6.8 % (19-41); Mean Corp Hgb Conc 32.3 g/dL (32-36); Mean Corpuscular Hgb 26.9 pg (27.0-32.0); Mean Corpuscular Volume 83.4 fL (81-99); Mean Platelet Vol. 10.2 fl (6.2-12.0); Monocyte# 1.47 X10^3/uL; Monocyte% 10.4 % (0-10); NRBC Flagged by Analyzer 0 % (0-5); Neutrophil # 11.36 X10^3/uL (2.7-7.7); Neutrophil % 80.5 % (47-70); Platelet Count 271 K/mm3 (150-450); RBC Distribution Width CV 14.7 % (11.6-14.6); RBC Distribution Width SD 44.6 fl (35.1-43.9); Red Blood Count 5.24 M/mm3 (4.2-5.4); White Blood Count 14.1 K/mm3 (4.4-11.0)
[2024-12-04] MEDS: Ipratropium/Albuterol Sulfate 3 ML AMPUL.NEB INHALATION ×2 (16:40→23:17)
[2024-12-04] MEDS: Albuterol 2.5 MG/3 ML VIAL.NEB. INHALATION (16:40)
[2024-12-04 17:26] LABS: Anion Gap 13 (5-15); BUN 10 mg/dL (4-19); BUN/Creat Ratio 10.4 RATIO (10-20); Calcium,Total 9.2 mg/dL (7.6-11.0); Carbon Dioxide 24.6 mmol/L (21.0-32.0); Chloride 99 mmol/L (98-108); Creatinine, Serum 0.92 mg/dL (0.70-1.20); EST Glomerular Filtration Rate 71 (>60); Estimated Creatinine Clearance 53.12 ml/min (50-250); Glucose 118 mg/dL (70-99); Potassium 4.2 mmol/L (3.3-5.1); Sodium Level 137 mmol/L (133-145)
[2024-12-04] MEDS: morphine 8 MG/ML Syringe 6 MG IV (17:39)
[2024-12-04] MEDS: Ondansetron 4 MG/2 ML Vial IV (17:39)
--- NOTE | 2024-12-04 17:50 | CT_ITS ---
PROCEDURE: CTA chest REASON FOR EXAM: Hypoxia, shortness of breath, cough TECHNIQUE: Multiple contiguous axial images of the chest were obtained after the administration of intravenous contrast. Two-dimensional and three-dimensional MIP coronal and sagittal reformatted images were reconstructed. Low-dose imaging technique was utilized. COMPARISON: 01/02/2024 FINDINGS: Mild cardiomegaly. Mild three-vessel coronary artery calcifications. Mitral annular calcifications. No significant pericardial effusion. Calcified nonaneurysmal thoracic aorta. Severe stenosis/occlusion of the proximal left subclavian artery. Normal caliber pulmonary arteries without filling defects. No suspicious adenopathy. Calcifications in the pancreatic head which may relate to chronic pancreatitis. Right renal atrophy. Superficial soft tissues are intact. Central airways are patent. Moderate emphysema. No acute infiltrates, pleural effusion or pneumothorax. 3 mm nodule along the posteromedial right lower lobe. No pulmonary mass. No acute osseous abnormality. CT/CTA Chest W/WO Contrast IMPRESSION: 1. No acute process. 2. Emphysema and coronary artery disease. 3. 3 mm pulmonary nodule in the right lower lobe. [address] follow-up recommended per Fleischner criteria. 4. 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 One or more dose reduction techniques were used (e.g., Automated exposure contr ol, adjustment of the mA and/or kV according to patient size, use of iterative reconstruction technique). Reading Location: [facility]
--- NOTE | 2024-12-04 18:04 | PCM.HP.STD ---
HPI - General General Date of Admission: 12/04/24 Date of Service: 12/04/24 Chief Complaint: Shortness of Breath HPI Narrative MIR KANG, is a 59 F who presented to the ED at [facility] on 12/04/2024 with the chief complaint of SOB. Pt has a h/o chronic pancreatitis and had a pancreatic block done at [facility] Thu of last week as a an outpatient with same day discharge. At baseline, she utilizes oxygen 2 L on a as needed basis. She reported that about Thursday of last week. Since then, she has had increased SOB and cough productive of sputum. She stated that her cough is worse than her baseline and now productive of sputum which is not typical for her. She states the sputum is thick and white. She denies any fever or chills. She has had no nausea or vomiting. No diarrhea. Indicates that she is still waiting abdominal pain despite procedure done at [facility] and has follow-up with them upcoming. She has followed up with pulmonary medicine here previously and her FEV1 on her most recent PFTs is 33% predicted. Again she typically wears as needed oxygen at 2 L however at home her oxygen saturation on 2 L was 76% so she came the emergency department for further evaluation. She does report she has noted some wheezing at home. She still smokes about half a pack of cigarettes daily however has been cutting back. Vital signs on presentation the emergency department showed a temperature of 97.2, heart rate 126, respiratory rate 24, blood pressure was 160/102 and pulse ox was 76% on a nonrebreather at 15 L/min. CBC on presentation showed a leukocytosis white count of 14.1 and a left shift with an 80.5% neutrophilia. Chemistry panel is unremarkable. Lipase was normal. I asked an ABG be drawn and it showed a pH of 7.24 with a pCO2 of 65.4 and a pO2 of 68. EKG showed sinus tachycardia. Chest x-ray showed only emphysematous changes. CTA of the chest was performed and showed no acute processes but emphysematous changes and coronary artery disease with a 3 mm pulmonary nodule in the right lower lobe as well as chronic severe stenosis/occlusion of the proximal left subclavian artery. She is doing nebulizers and aerosols emergency department request for admission was made. FOR[facility]LY [facility], [facility] Medical History Pancreatic stones HLD (hyperlipidemia) History of alcohol abuse Pneumonia Acute on chronic hypoxic respiratory failure Stage 3 severe COPD by GOLD classification Asthma COPD (chronic obstructive pulmonary disease) Arthritis History of back problems Anxiety and depression Chronic pancreatitis HPV (human papilloma virus) infection Anemia Tobacco abuse GERD (gastroesophageal reflux disease) Benign hypertension Home Medications ?Medication ?Instructions ?Recorded ?Last Taken ?Type cholecalciferol (vitamin D3) 50 50 mcg PO DAILY SUPPLEMENT 12/29/18 10/31/22 History mcg (2,000 unit) capsule pantoprazole 40 mg tablet,delayed 40 mg PO DAILY GERD 08/12/20 10/31/22 History release aripiprazole 5 mg tablet (Abilify) 5 mg PO DAILY mood 01/22/21 10/31/22 History hydroxyzine pamoate 25 mg capsule 25 mg PO QHS SLEEP 06/12/21 01/01/24 History mirtazapine 45 mg tablet 45 mg PO QHS sleep 01/16/22 01/01/24 History simvastatin 20 mg tablet 20 mg PO QHS cholesterol 11/01/22 01/01/24 History hydrochlorothiazide 12.5 mg capsule 12.5 mg PO BREAKFAST 30 days #30 01/05/24 Unknown Rx caps metoprolol tartrate 25 mg tablet 25 mg PO BID 30 days #60 tabs 01/05/24 Unknown Rx amlodipine 10 mg tablet 5 mg PO DAILY 01/26/24 Unknown History ipratropium 0.5 mg-albuterol 3 mg 3 ml inhalation Q4H PRN shortness 01/26/24 Unknown Rx (2.5 mg base)/3 mL nebulization of breath or wheezing #90 mL soln lisinopril 10 mg tablet 10 mg PO QDAY 01/26/24 Unknown History albuterol sulfate 90 mcg/actuation 2 puff inhalation Q4H PRN 05/11/24 Unknown Rx aerosol inhaler (Ventolin HFA) shortness of breath or wheezing #18 grams lorazepam 0.5 mg tablet 0.5 mg PO BID 05/11/24 Unknown History fluticasone fur. 200 mcg-umeclid 1 inh inhalation DAILY #3 ea 08/29/24 Unknown Rx 62.5 mcg-vilant 25 mcg inhalat.powder (Trelegy Ellipta) Allergy/AdvReac Type Severity Reaction Status Date / Time clindamycin Allergy Intermediate Hives Verified 12/04/24 15:55 Penicillins Allergy Hives Verified 12/04/24 15:55 sulfamethoxazole (From Allergy Other Verified 12/04/24 15:55 Bactrim) trimethoprim (From Bactrim) Allergy Other Verified 12/04/24 15:55 hydrocodone (From [place]) AdvReac Itching Verified 12/04/24 15:55 Family History Mother Diabetes Hypertension Heart disease High cholesterol Arthritis Thyroid disorder Brother Hypertension Sister Cancer cervical Thyroid disorder Father Kidney disease Daughter Thyroid disorder Family History no significant family his Surgical History History of tubal ligation History of colonoscopy History of appendectomy Surgical History no surgical history Social History household members: family Smoking Status: Heavy Smoker (>10/day) Tobacco: How many years used: 30 second hand exposure: Yes alcohol intake: former details: Sober since 2020. substance use type: does not use caffeine: Yes Vital Signs Vital Signs Vital Signs: 12/04/24 15:51 12/04/24 15:54 12/04/24 16:02 Temperature 97.2 F L 97.2 F L Temperature Source Temporal Temporal Pulse Rate 126 H 126 H Respiratory Rate 24 H 24 H Respiratory Effort Short of Breath Respiratory Pattern Blood Pressure 160/102 H 160/102 H Blood Pressure Mean 121 121 Pulse Ox 76 76 Oxygen Delivery Method Non-Rebreather @ 15L/min Nasal Cannula Nasal Cannula Oxygen Flow Rate (L/min) 2 4 12/04/24 16:07 12/04/24 16:43 12/04/24 16:54 Temperature 97.8 F Temperature Source Temporal Pulse Rate 116 H 114 H Respiratory Rate 21 H 26 H Respiratory Effort Respiratory Pattern Tachypnea Blood Pressure 148/62 H Blood Pressure Mean 90 Pulse Ox 90 91 Oxygen Delivery Method CPAP Oxygen Flow Rate (L/min) 12/04/24 17:12 Temperature 97.8 F Temperature Source Temporal Pulse Rate 116 H Respiratory Rate 27 H Respiratory Effort Respiratory Pattern Blood Pressure 146/77 H Blood Pressure Mean 100 Pulse Ox 91 Oxygen Delivery Method Oxygen Flow Rate (L/min) Weight Weight: 58.967 kg Body Mass Index (BMI) 23.0 Results Lab / Micro Data 12/04/24 16:22 12/04/24 16:22 Labs: Laboratory Results - last 24 hr 12/04/24 16:22: WBC 14.1 H, RBC 5.24, Hgb 14.1, Hct 43.7, MCV 83.4, MCH 26.9 L, MCHC 32.3, RDW Std Deviation 44.6 H, RDW Coeff of Min 14.7 H, Plt Count 271, MPV 10.2, Immature Gran % (Auto) 0.800, Neut % (Auto) 80.5 H, Lymph % (Auto) 6.8 L, Mcd[place] % (Auto) 10.4 H, Eos % (Auto) 0.6, Baso % (Auto) 0.9, Absolute Neuts (auto) 11.4 H, Absolute Lymphs (auto) 0.96, Nucleated RBC % 0, Sodium 137, Potassium 4.2, Chloride 99, Carbon Dioxide 24.6, Anion Gap 13, BUN 10, Creatinine 0.92, Estim Creat Clear Calc 53.12, Est GFR (MDRD) Non-Af 71, BUN/Creatinine Ratio 10.4, Glucose 118 H, Calcium 9.2 Micro: Microbiology 12/04/24 16:22 Mucosa - Nose SARS-CoV-2, Influenza & RSV (PCR) - Final Rhythm Strip Rhythm Strip: Sinus Tach Rate: 121 Ectopy: None Imaging Radiology Impression Chest X-Ray 12/04/24 16:06 IMPRESSION: No acute airspace abnormality. Emphysema. Reading Location: [facility] Assessment & Plan Assessment/Plan (1) Acute hypoxic respiratory failure: (2) COPD with acute exacerbation: (3) Pulmonary nodule: (4) Stenosis of left subclavian artery: PLAN: Plan Acute hypoxic and hypercapnic respiratory failure secondary to acute exacerbation of COPD -patient requiring 5 L to 6 L supplemental nasal cannula keep sats greater than 88% -At baseline patient only wears 2 L as needed which she does not frequently -Was tachycardic and tachypneic on presentation -ABG shows acidosis with pH of 7.24 that is respiratory in nature -Start stat BiPAP -Low-dose Ativan as patient is concerned she will be able to tolerate -Did explain never really need to try to prevent further respiratory decline -Solu-Medrol 40 every 8 -Mucinex 1200 p.o. twice daily -Will give Levaquin 750 daily with change in sputum and COPD severity at baseline she is at high risk for pseudomonal infection -FEV1 on most recent PFTs from several years ago was 33% -Check strep pneumo and Legionella antigen -Check sputum culture -Aggressive pulmonary toilet -Acapella 10 times every 2 hours while awake -I-S -Will need outpatient follow-up at discharge with pulmonary medicine -Check ambulatory pulse ox prior to discharge Right lower lobe pulmonary nodule -3 mm -Will need follow-up CT prophylaxis or criteria -Outpatient follow-up with pulmonary after discharge Left subclavian artery stenosis -Recommend right sided blood pressures to be taken for accuracy -Would recommend outpatient follow-up after discharge Chronic pancreatitis -Follows at [facility] -Seeing pain management -Recommend outpatient follow-up as previously scheduled Essential hypertension/hyperlipidemia -Continue home amlodipine -Continue home HCTZ -Continue home lisinopril -continue home metoprolol -Continue home statin GERD -Continue home PPI COPD -Patient is not continuously dependent on oxygen at baseline and requires 2.5 L as needed -Hold home inhalers next-treatment as above -Follow-up as an outpatient as recommended at discharge Anxiety/depression -Continue home scheduled lorazepam -Continue home Abilify DVT prophylaxis -Enoxaparin 40 mg daily CODE STATUS -Full code as verified at the time of admission Charges/Coding Visit Charges Inpatient E&M: 90276 Init Hosp L2
[2024-12-04 18:11] LABS: Lipase 25 U/L (13-75)
--- NOTE | 2024-12-04 18:21 | ED.RN ---
Patient transported to CT
[2024-12-04 19:03] LABS: Allen Test Positive; Base Excess 1 mmol/L (-2 to +2); Bicarbonate 28.1 mmol/L (22-26); Blood Gas Specimen Type ART; Mode Not entered; O2 Delivery Device Cannula; PO2 68 mmHG (75-100); SITE R Radial; SO2 89 % (95-99); Total Carbon Dioxide 30 mmol/L; pCO2 65.4 mmHg (35-45); pH 7.24 (7.35-7.45)
--- NOTE | 2024-12-04 21:05 | NURSING ---
Dr. Aguayo contacted this RN at this time and stressed importance of patient wearing bipap. This RN to patient room to stress the importance of wearing bipap. Patient agreed to wear bipap for the night.
[2024-12-04] MEDS: Lorazepam 2 MG/ML WCH Syringe 0.5 MG IV (21:10)
[2024-12-04] MEDS: 0.9% Saline Lock 10 ML Syringe IV (21:11)
[2024-12-04] MEDS: Methylprednisolone Sod Succ 40 MG/ML VIAL IV (21:12)
[2024-12-04] MEDS: Atorvastatin Calcium 10 MG Tablet PO (21:13)
[2024-12-04] MEDS: Metoprolol Tartrate 25 MG Tablet PO (21:13)
[2024-12-04] MEDS: Mirtazapine 15 MG Tablet 45 MG PO (21:14)
[2024-12-04] MEDS: guaiFENesin 1,200 MG Tablet 1200 MG PO (21:14)
[2024-12-04] MEDS: hydrOXYzine PAM 25 MG Capsule PO (21:15)
[2024-12-04] MEDS: NYSTATIN 500,000 UNIT/5 ML UDC 500000 UNIT PO (21:16)
[2024-12-04] MEDS: Acetaminophen 325 MG Tablet 650 MG PO (23:31)
[2024-12-04] MEDS: LORazepam 0.5 MG Tablet PO (23:31)
[2024-12-05] VITALS (21 sets, daily range): BP systolic 94–128; BP diastolic 55–78; PULSE 70–108; RESP 14–24; TEMP 36.5–37; O2SAT 91–98; BMI 24.2
[2024-12-05] MEDS: 0.9% Saline Lock 10 ML Syringe IV ×4 (02:59→22:23)
[2024-12-05] MEDS: Morphine 4 MG/ML Syringe IV (02:59)
[2024-12-05] MEDS: Ipratropium/Albuterol Sulfate 3 ML AMPUL.NEB INHALATION ×6 (03:01→23:20)
[2024-12-05] MEDS: levoFLOXacin 750 MG Tablet PO (05:48)
[2024-12-05] MEDS: Methylprednisolone Sod Succ 40 MG/ML VIAL IV ×3 (05:48→22:13)
[2024-12-05 06:54] LABS: Absolute Lymphocyte Count 0.86 X10^3/uL (0.83-4.51); Absolute Neutrophil Count 15.1 X10^3/uL (2.0-7.7); Basophil# 0.06 X10^3/uL; Basophil% 0.4 % (0-1); Eosinophil# 0.01 X10^3/uL; Eosinophils% 0.1 % (0-5); Hematocrit 39.2 % (37-47); Hemoglobin 12.2 g/dL (12.0-15.0); Lymphocyte # 0.86 X10^3/ul (0.83-4.51); Lymphocyte % 5.1 % (19-41); Mean Corp Hgb Conc 31.1 g/dL (32-36); Mean Corpuscular Hgb 26.5 pg (27.0-32.0); Mean Platelet Vol. 10.9 fl (6.2-12.0); Monocyte# 0.67 X10^3/uL; NRBC Flagged by Analyzer 0 % (0-5); Neutrophil # 15.08 X10^3/uL (2.7-7.7); Platelet Count 250 K/mm3 (150-450); RBC Distribution Width CV 14.9 % (11.6-14.6); RBC Distribution Width SD 46.7 fl (35.1-43.9); Red Blood Count 4.61 M/mm3 (4.2-5.4); White Blood Count 16.9 K/mm3 (4.4-11.0)
[2024-12-05 08:13] LABS: Allen Test Positive; Base Excess -3 mmol/L (-2 to +2); Bicarbonate 23.8 mmol/L (22-26); Blood Gas Specimen Type ART; Comment 425; Mode Not entered; O2 Delivery Device BiPAP; PO2 57 mmHG (75-100); RR 14; SITE R Radial; SO2 85 % (95-99); Total Carbon Dioxide 25 mmol/L; pCO2 51.6 mmHg (35-45); pH 7.27 (7.35-7.45)
[2024-12-05 08:14] LABS: Phosphorus 6.2 mg/dL (2.7-4.5)
[2024-12-05 08:25] LABS: ALB/GLOB Ratio 1.2 RATIO (0.9-2.4); AST(SGOT) 62 U/L (<=31); Alanine Aminotransfer ALT/SGPT 39 U/L (<=34); Albumin, Serum 3.8 g/dL (3.4-4.8); Alkaline Phosphatase 149 U/L (35-104); Anion Gap 16 (5-15); BUN 19 mg/dL (4-19); Calcium,Total 6.7 mg/dL (7.6-11.0); Chloride 97 mmol/L (98-108); Creatinine, Serum 1.37 mg/dL (0.70-1.20); EST Glomerular Filtration Rate 44 (>60); Estimated Creatinine Clearance 35.67 ml/min (50-250); Globulin 3.2 g/dL (2.2-4.2); Glucose 144 mg/dL (70-99); Potassium 4.8 mmol/L (3.3-5.1); Sodium Level 134 mmol/L (133-145); Total Bilirubin 0.18 mg/dL (0.00-1.30)
[2024-12-05] MEDS: Enoxaparin 40 MG/0.4 ML Syringe SC (10:04)
[2024-12-05] MEDS: Acetaminophen 325 MG Tablet 650 MG PO (10:04)
[2024-12-05] MEDS: LORazepam 0.5 MG Tablet PO ×2 (10:04→22:16)
[2024-12-05] MEDS: hydroCHLOROthiazide 12.5mg 12.5 MG PO (10:04)
[2024-12-05] MEDS: amLODIPine 5 MG Tablet PO (10:05)
[2024-12-05] MEDS: Lisinopril 10 MG Tablet PO (10:05)
[2024-12-05] MEDS: ARIPiprazole 5 MG Tablet PO (10:05)
[2024-12-05] MEDS: guaiFENesin 1,200 MG Tablet 1200 MG PO ×2 (10:05→22:12)
[2024-12-05] MEDS: Pantoprazole Sodium 40 MG Tablet PO (10:05)
[2024-12-05] MEDS: Cholecalciferol (VIT D3) 25 MCG TABLET (1,000 UNITS) 50 MCG PO (10:05)
[2024-12-05] MEDS: Metoprolol Tartrate 25 MG Tablet PO ×2 (10:05→22:12)
[2024-12-05] MEDS: NYSTATIN 500,000 UNIT/5 ML UDC 500000 UNIT PO ×4 (10:05→22:13)
[2024-12-05 10:50] LABS: Base Excess -1 mmol/L (-2 to +2); Bicarbonate 26.4 mmol/L (22-26); Blood Gas Specimen Type ART; Comment 60 75; Mode Not entered; O2 Delivery Device Not entered; PO2 68 mmHG (75-100); SITE R Radial; SO2 89 % (95-99); Total Carbon Dioxide 28 mmol/L; pH 7.24 (7.35-7.45)
[2024-12-05] MEDS: traMADol 50 MG Tablet 100 MG PO ×2 (12:57→18:45)
--- NOTE | 2024-12-05 13:14 | EX.PCM.CONCC ---
Assessment & Plan Assessment/Plan (1) COPD with acute exacerbation: (2) Acute hypoxic respiratory failure: PLAN: Plan RECOMMENDATIONS: 1. Continue to wean FiO2 as tolerated. 2. Continue empiric antibiotics, bronchodilators and steroids. 3. Obtain echocardiogram. 4. Consider gentle diuresis as tolerated by hemodynamics and renal function. 5. Continue appropriate DVT prophylaxis. 6. Continue nicotine replacement therapy. 7. Aggressive medical management of underlying anxiety. IMPRESSIONS: 1. Acute respiratory failure with hypoxemia and hypercapnia Unclear precipitating etiology. CTA chest showed no evidence for pulmonary embolism. There was no evidence of a focal infiltrate to suggest pneumonia. Therefore, we will plan to obtain an echocardiogram and consider gentle diuresis as tolerated by hemodynamics and renal function. Viral workup was negative. The patient does have evidence of end-stage lung disease based upon pulmonary function studies completed last month. It is certainly plausible that the patient's anxiety may have also contributed to her acute decompensation with increasing respiratory rate leading to worsening air trapping. The patient appears to have stabilized on heated high flow oxygen, which will be weaned to maintain saturations at or above 90%. It should be noted that the patient had a similar hospital admission in October 2022 in the setting of a panic attack with generalized anxiety disorder leading to acute decompensation in her respiratory status. 2. Chronic tobacco dependency/bipolar disorder/depression/anxiety/chronic pancreatitis Complicates care, management, recovery and prognosis. Continue home medications as indicated. This note was generated with [employer] dictation software. It may contain incorrect words, spelling, and punctuation that were not noted in checking the note before signing. HPI Consult Data Date of Consult: 12/05/24 HPI Narrative Reason for Consultation: Respiratory failure with hypoxemia and hypercapnia HPI Narrative: The patient is a 59-year-old female, with a history as outlined below, who presented to the emergency department on December 04 with dyspnea on exertion. The patient has a known history of chronic pancreatitis along with end-stage COPD on maximum outpatient inhaler therapy. In addition, she has an extensive tobacco abuse history and continues to smoke approximately 1 pack of cigarettes per day. According to our last pulmonary medicine office visit, the patient is supposed to be using 2 to 3 L/min of supplemental oxygen. However, the patient reported to me that she only utilizes her supplemental O2 when she feels as though it is needed. On presentation to the emergency department, the patient was documented to be afebrile but was notably tachycardic and tachypneic. Laboratory evaluation was notable for a white blood cell count of 14,000. Initial ABG was notable for a pH of 7.24 with a pCO2 of 65 and pO2 of 68. Chemistry profile was unremarkable. COVID, influenza and RSV PCR's were negative. Respiratory viral panel was negative. CTA chest showed no evidence for pulmonary embolism. Incidental note was made of a 3 mm lung nodule in the right lower lobe. However, there was no acute cardiopulmonary process. The patient was subsequently placed on scheduled bronchodilators, Levaquin and steroids. She was admitted to the progressive care unit for further management. This morning, the patient feels somewhat better. She is currently maintaining appropriate oxygen saturations on heated high flow O2. She reported an intolerance to PAP therapy, indicating that she felt as if she was being suffocated. [facility] Medical History Pancreatic stones HLD (hyperlipidemia) History of alcohol abuse Pneumonia Acute on chronic hypoxic respiratory failure Stage 3 severe COPD by GOLD classification Asthma COPD (chronic obstructive pulmonary disease) Arthritis History of back problems Anxiety and depression Chronic pancreatitis HPV (human papilloma virus) infection Anemia Tobacco abuse GERD (gastroesophageal reflux disease) Benign hypertension Home Medications ?Medication ?Instructions ?Recorded ?Last Taken ?Type cholecalciferol (vitamin D3) 50 50 mcg PO DAILY SUPPLEMENT 12/29/18 10/31/22 History mcg (2,000 unit) capsule pantoprazole 40 mg tablet,delayed 40 mg PO DAILY GERD 08/12/20 10/31/22 History release aripiprazole 5 mg tablet (Abilify) 5 mg PO DAILY mood 01/22/21 10/31/22 History hydroxyzine pamoate 25 mg capsule 25 mg PO QHS SLEEP 06/12/21 01/01/24 History mirtazapine 45 mg tablet 45 mg PO QHS sleep 01/16/22 01/01/24 History simvastatin 20 mg tablet 20 mg PO QHS cholesterol 11/01/22 01/01/24 History hydrochlorothiazide 12.5 mg capsule 12.5 mg PO BREAKFAST 30 days #30 01/05/24 Unknown Rx caps metoprolol tartrate 25 mg tablet 25 mg PO BID 30 days #60 tabs 01/05/24 Unknown Rx amlodipine 10 mg tablet 5 mg PO DAILY 01/26/24 Unknown History ipratropium 0.5 mg-albuterol 3 mg 3 ml inhalation Q4H PRN shortness 01/26/24 Unknown Rx (2.5 mg base)/3 mL nebulization of breath or wheezing #90 mL soln lisinopril 10 mg tablet 10 mg PO QDAY 01/26/24 Unknown History albuterol sulfate 90 mcg/actuation 2 puff inhalation Q4H PRN 05/11/24 Unknown Rx aerosol inhaler (Ventolin HFA) shortness of breath or wheezing #18 grams lorazepam 0.5 mg tablet 0.5 mg PO BID 05/11/24 Unknown History fluticasone fur. 200 mcg-umeclid 1 inh inhalation DAILY #3 ea 08/29/24 Unknown Rx 62.5 mcg-vilant 25 mcg inhalat.powder (Trelegy Ellipta) Allergy/AdvReac Type Severity Reaction Status Date / Time clindamycin Allergy Intermediate Hives Verified 12/04/24 15:55 Penicillins Allergy Hives Verified 12/04/24 15:55 sulfamethoxazole (From Allergy Other Verified 12/04/24 15:55 Bactrim) trimethoprim (From Bactrim) Allergy Other Verified 12/04/24 15:55 hydrocodone (From [place]) AdvReac Itching Verified 12/04/24 15:55 Family History Mother Diabetes Hypertension Heart disease High cholesterol Arthritis Thyroid disorder Brother Hypertension Sister Cancer cervical Thyroid disorder Father Kidney disease Daughter Thyroid disorder Family History no significant family his Surgical History History of tubal ligation History of colonoscopy History of appendectomy Surgical History no surgical history Social History household members: family Smoking Status: Heavy Smoker (>10/day) Tobacco: How many years used: 30 second hand exposure: Yes alcohol intake: former details: Sober since 2020. substance use type: does not use caffeine: Yes ROS ROS Narrative 10 systems were reviewed with pertinent positives as noted in the HPI above. Physical Exam Const alert and no apparent distress Constitutional Narrative: Family is present at the bedside. General Appearance: cooperative HEENT normocephalic and head/scalp atraumatic Eyes PERRL, EOMs intact bilaterally and conjunctivae normal Neck supple General: trachea midline Chest inspection of chest normal Resp normal respiratory effort Auscultation: wheezes and diminished lung sounds Cardio regular rate and regular rhythm GI normal to inspection, nondistended, normoactive bowel sounds Extremity no clubbing, cyanosis or edema Skin no rashes or lesions noted Neuro CN's II-XII intact bilaterally, moves all extremities and no focal motor deficits Psych Mood & Affect: anxious Lab / Micro Data 12/05/24 05:28 12/05/24 05:28 Labs: Laboratory Results - last 24 hr 12/04/24 16:22: WBC 14.1 H, RBC 5.24, Hgb 14.1, Hct 43.7, MCV 83.4, MCH 26.9 L, MCHC 32.3, RDW Std Deviation 44.6 H, RDW Coeff of Min 14.7 H, Plt Count 271, MPV 10.2, Immature Gran % (Auto) 0.800, Neut % (Auto) 80.5 H, Lymph % (Auto) 6.8 L, Emery % (Auto) 10.4 H, Eos % (Auto) 0.6, Baso % (Auto) 0.9, Absolute Neuts (auto) 11.4 H, Absolute Lymphs (auto) 0.96, Nucleated RBC % 0, Sodium 137, Potassium 4.2, Chloride 99, Carbon Dioxide 24.6, Anion Gap 13, BUN 10, Creatinine 0.92, Estim Creat Clear Calc 53.12, Est GFR (MDRD) Non-Af 71, BUN/Creatinine Ratio 10.4, Glucose 118 H, Calcium 9.2, Lipase 25 12/05/24 05:28: WBC 16.9 H, RBC 4.61, Hgb 12.2, Hct 39.2, MCV 85.0, MCH 26.5 L, MCHC 31.1 L, RDW Std Deviation 46.7 H, RDW Coeff of Min 14.9 H, Plt Count 250, MPV 10.9, Immature Gran % (Auto) 1.400 H, Neut % (Auto) 89.0 H, Lymph % (Auto) 5.1 L, Emery % (Auto) 4.0, Eos % (Auto) 0.1, Baso % (Auto) 0.4, Absolute Neuts (auto) 15.1 H, Absolute Lymphs (auto) 0.86, Nucleated RBC % 0, Sodium 134, Potassium 4.8, Chloride 97 L, Carbon Dioxide 21.0, Anion Gap 16 H, BUN 19, Creatinine 1.37 H, Estim Creat Clear Calc 35.67 L, Est GFR (MDRD) Non-Af 44 L, BUN/Creatinine Ratio 14.0, Glucose 144 H, Calcium 6.7 L, Phosphorus 6.2 H, Magnesium 2.0, Total Bilirubin 0.18, AST 62 H, ALT 39 H, Alkaline Phosphatase 149 H, Total Protein 7.0, Albumin 3.8, Globulin 3.2, Albumin/Globulin Ratio 1.2 Micro: Microbiology 12/04/24 21:23 Mucosa - Nasopharyngeal Respiratory Panel (PCR) - Final 12/04/24 16:22 Mucosa - Nose SARS-CoV-2, Influenza & RSV (PCR) - Final ABG Data ABG results: ABG 12/04/24 12/05/24 12/05/24 19:00 08:08 10:46 Specimen Type ART ART ART Sample Site R Radial R Radial R Radial pH 7.24 L 7.27 L 7.24 L Bicarbonate Actual 28.1 H 23.8 26.4 H Total CO2 30 25 28 Base Excess 1 -3 L -1 O2 Saturation 89 L 85 L 89 L O2 % 5.0 45.0 ABG pCO2 65.4 H 51.6 H 61.0 H ABG pO2 68 L 57 L 68 L Alexis Test Positive Positive Respiration Rate 14 O2 Delivery Device Cannula BiPAP Not entered Vent Mode Not entered Not entered Not entered Clinical Comments [id number] Rhythm Strip Rhythm Strip: Sinus Tach Rate: 121 Ectopy: None Imaging Radiology Impression Chest X-Ray 12/04/24 16:06 IMPRESSION: No acute airspace abnormality. Emphysema. Reading Location: [facility] Chest CTA 12/04/24 17:50 IMPRESSION: 1. No acute process. 2. Emphysema and coronary artery disease. 3. 3 mm pulmonary nodule in the right lower lobe. [address] follow-up recommended per Fleischner criteria. 4. 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 One or more dose reduction techniques were used (e.g., Automated exposure control, adjustment of the mA and/or kV according to patient size, use of iterative reconstruction technique). Reading Location: [facility] Charges/Coding Visit Charges Inpatient E&M: 27633 Init Hosp L3
--- NOTE | 2024-12-05 13:19 | ECHOD_ITS ---
Reason For Study Reason For Study: DYSPNEA Procedure This was a 2D Doppler, Color Flow transthoracic echocardiogram. Technically difficult study due to patient coughing. Exam performed portable in patient room. Left Ventricle Normal LV size. The estimated ejection fraction is 70 %. Unable to assess diastolic dysfunction. No regional wall motion abnormalities noted. Right Ventricle Normal RV size. Normal systolic function. Atria The left and right atria are normal. No doppler evidence for ASD. Mitral Valve There is severe mitral annular calcification. There is no mitral valve stenosis. Trivial mitral valve insufficiency. Tricuspid Valve There is no tricuspid stenosis. Unable to estimate RV systolic pressure due to inadequate jet, pulmonary artery pressure probably normal. Aortic Valve Trisinus/trileaflet aortic valve. Aortic sclerosis, no stenosis. No aortic valve insufficiency. Pulmonic Valve There is no pulmonic valvular stenosis. No pulmonic valve insufficiency. Great Vessels Normal sized aortic root. Pericardium/Pleural No pericardial effusion. MMode/2D Measurements & Calculations LVIDd: 3.8 cm IVSd: 1.3 cm LVOT diam: 1.9 cm LVIDs: 1.9 cm LVPWd: 1.7 cm LVOT area: 2.8 cm2 FS: 49.7 % LAV(MOD-bp): 27.0 ml LVAd ap4: 21.8 cm2 SV(MOD-sp4): 34.2 ml LAV(MOD-bp) Indexed: 16.5 ml/m2 LVLd ap4: 7.3 cm SI(MOD-sp4): 20.8 ml/m2 LAV(MOD-sp2): 22.3 ml EDV(MOD-sp4): 54.4 ml LAV(MOD-sp4): 28.4 ml EDV(sp4-el): 55.4 ml LVAs ap4: 11.6 cm2 LVLs ap4: 5.9 cm ESV(MOD-sp4): 20.2 ml ESV(sp4-el): 19.7 ml EF(MOD-sp4): 62.9 % EF(sp4-el): 64.5 % SV(sp4-el): 35.7 ml LA A4 area: 11.9 cm2 LA dimension(2D): 3.7 cm RA A4 area: 7.8 cm2 Time Measurements MV dec time: 0.19 sec Doppler Measurements & Calculations MV E max jalen: 74.6 cm/sec Lat Peak E' Jalen: 4.5 cm/sec Med Peak E' Jalen: 5.9 cm/sec MV A max jalen: 128.6 cm/sec E/E' lat: 16.5 E/E' med: 12.6 MV E/A: 0.58 MV V2 max: 137.7 cm/sec Ao V2 max: 151.6 cm/sec MV max P.6 mmHg MV dec slope: 385.8 cm/sec2 Ao max P.2 mmHg MV V2 mean: 81.6 cm/sec Ao V2 mean: 99.9 cm/sec MV mean P.0 mmHg Ao mean P.8 mmHg MV V2 VTI: 34.0 cm Ao V2 VTI: 22.5 cm AV (velocity ratio): 0.94 MVA(VTI): 1.8 cm2 KENYETTA(I,D): 2.7 cm2 KENYETTA(V,D): 2.5 cm2 LV V1 max: 133.6 cm/sec SV(LVOT): 59.7 ml PA V2 max: 111.5 cm/sec LV V1 max P.2 mmHg PA V2 mean: 79.9 cm/sec LV V1 mean P.4 mmHg LV V1 mean: 82.7 cm/sec LV V1 VTI: 21.1 cm ECHO/Echo Complete Interpretation Summary The estimated ejection fraction is 70 %. Unable to assess diastolic dysfunction. Trivial mitral valve insufficiency. Ordering Physician: Gonzalo Sebastian Referring Physician: GUS ELKINS Performed By: Grazyna Lazaro RCS
--- NOTE | 2024-12-05 14:21 | CASEMGMT ---
RN YANI ornament maker hand CM to room to meet with patient for initial transition planning/care coordination assessment. SARWAT LOMELI introduced self and role at [facility], pt voices understanding. Pt is A&O, resting in bed w/nasal PAP in place. Pt agreeable to completing assessment. Care providers, pharmacy, and demographics verified. Strata: 2 PCP: Dr Hay Specialists: [facility]-Dr Gonzalo Sebastian and MARY Eduardo. GI @ [facility]. Pt sees a psychiatrist @ the [facility]. Preferred Pharmacy: [facility] @ [place]. Insurance: Verified Identity Pass Prescription Benefit: Yes LNOK: Domonique Augustine (Sister). Pt has 3 adult children. HCPOA: Pt has HCPOA on file @ [facility] and her dtr, Caitie is her agent. Pt would like to do new HCPOA and name Domonique as her primary HCPOA and then her daughter, Caitie as 1st alternative. TRACY Rubio, made aware. Living Arrangements: Pt lives with her adult son and adult daughter in 2 story home with 6 steps to enter with handrails. Pt states she does okay with the stairs, she takes her time and makes sure she wears her O2 when exerting herself. She is indep w/ADL's and does the grocery shopping. Family helps her w/deeper cleaning and they do the laundry since it is in the basement. Transportation: Self, family, [facility] [employer], [id number] DME: Pt states that she wears 2L of O2 as needed through [facility]. Pt states that she does not wear a PAP @ [facility], stating she could not tolerate it. Pt states that she has 5 portable tanks at home and a concentrator. She has a portable tank in the room currently but she states it is empty. She is going to ask her daughter to bring in a full one from home but states will need help having the regulator switched over. She states when her tanks runs empty, she takes it to either the fire station or [facility] to have them switch it over for her stating I haven't been able to figure out how to do it. Pt has a Pulse Ox, BP machine, and nebulizer. Email sent to [facility] [facility] [facility] to verify current Rx. Per Terence @ [facility], pt's home O2 order is for 2 L/M continuously. HHC/SNF: Denies history. Denies need for HHC or OP therapy. 6 cl: 23, no therapy ordered. Pt states that she wants to [place] home and feels safe doing so. Palliative: Pt states she was active w/Palliative care in the past but states, They told me I wasn't wearing O2 enough and that I didn't have chronic pain, so they cancelled me. She states she was told her lungs are shot and she will need to wear more O2 now. She also reports chronic pain. She would like to another palliative referral. Dr Kahn made aware, order received, and documents uploaded. RNJackeline, aware and will send referral to [facility]. Smoking Hx: Pt states that she currently smokes and states is going to try to quit. Pt educated about safety issues with smoking and oxygen. Plan: Home w/family support. CM to follow for increased O2 needs. Jenny GALLOWAY RN CM
[2024-12-05] MEDS: Furosemide 40 MG/4 ML Vial IV (15:00)
--- NOTE | 2024-12-05 16:17 | CHAPLAIN ---
Type of Pastoral Visit _x__ Initial Visit ___ Follow-up Visit ___ On-call Visit ___ General Patient Visit ___ Spiritual Assessment ___ Family Conference ___ Bereavement ___ Rapid Response ___ Code Blue ___ Other (describe below) Pastoral Care Referral From _x__ Patient ___ Family ___ Nurse ___ Physician ___ Cement Worker ___ Organizational Development Director ___ Other (describe below) Sacrament/Intervention ___ Active listening ___ Anointing ___ Episcopal ___ Bereavement ___ Communion ___ Swapna exploration ___ ___ Life review _x__ Prayer ___ Reconciliation ___ Sacrament of Sick _x__ Supportive presence ___ Wedding ___ Other (describe below) Pastoral Comments patient is trying to sleep; pt says that a prayer would be sufficient and that letting her sleep would be preferred; both done
--- NOTE | 2024-12-05 19:44 | PN.HOSP_ITS ---
Reason for Visit Reason for Visit: Diagnoses Stricture of artery (12/04/24) Chronic obstructive pulmonary disease with (acute) exacerbation (12/04/24) Acute respiratory failure with hypoxia (12/04/24) Solitary pulmonary nodule (12/04/24) Subjective Subjective Patient was seen and examined today, she is currently on Airvo, I had pulmonary medicine see the patient in consultation today and they recommended 1 dose of diuretic and continuation of her IV corticosteroids and aggressive aerosol treatments. They did not have anything to add other than that. Pulmonary medicine also recommended the patient remain on antibiotics for now. Objective Data Objective Data Vital Signs: Vital Signs Temp Pulse Resp BP Pulse Ox O2 Del Method O2 Flow Rate 98.5 F 87 20 H 110/72 93 Airvo 60 12/05/24 16:45 12/05/24 19:19 12/05/24 19:19 12/05/24 16:45 12/05/24 19:30 12/05/24 19:30 12/05/24 19:30 FiO2 60 12/05/24 19:30 Oxygen Flow Rate (L/min) 60 Oxygen Delivery Method Airvo Weight: 62 kg Body Mass Index (BMI) 24.2 Intake & Output: Intake and Output for Last 24 Hours 12/03/24 12/05/24 12/05/24 23:59 00:59 23:59 Intake Total 240 / 240 100 / 100 Output Total 750 / 750 Balance 240 / 240 -650 / -650 Lab / Micro Data 12/06/24 07:02 12/06/24 07:02 Labs: Laboratory Results - last 24 hr 12/05/24 05:28: WBC 16.9 H, RBC 4.61, Hgb 12.2, Hct 39.2, MCV 85.0, MCH 26.5 L, MCHC 31.1 L, RDW Std Deviation 46.7 H, RDW Coeff of Min 14.9 H, Plt Count 250, MPV 10.9, Immature Gran % (Auto) 1.400 H, Neut % (Auto) 89.0 H, Lymph % (Auto) 5.1 L, [place] % (Auto) 4.0, Eos % (Auto) 0.1, Baso % (Auto) 0.4, Absolute Neuts (auto) 15.1 H, Absolute Lymphs (auto) 0.86, Nucleated RBC % 0, Sodium 134, Potassium 4.8, Chloride 97 L, Carbon Dioxide 21.0, Anion Gap 16 H, BUN 19, C reatinine 1.37 H, Estim Creat Clear Calc 35.67 L, Est GFR (MDRD) Non-Af 44 L, BUN/Creatinine Ratio 14.0, Glucose 144 H, Calcium 6.7 L, Phosphorus 6.2 H, Magnesium 2.0, Total Bilirubin 0.18, AST 62 H, ALT 39 H, Alkaline Phosphatase 149 H, Total Protein 7.0, Albumin 3.8, Globulin 3.2, Albumin/Globulin Ratio 1.2 Micro: Microbiology 12/04/24 21:23 Mucosa - Nasopharyngeal Respiratory Panel (PCR) - Final 12/04/24 16:22 Mucosa - Nose SARS-CoV-2, Influenza & RSV (PCR) - Final ABG Data ABG results: ABG 12/05/24 12/05/24 08:08 10:46 Specimen Type ART ART Sample Site R Radial R Radial pH 7.27 L 7.24 L Bicarbonate Actual 23.8 26.4 H Total CO2 25 28 Base Excess -3 L -1 O2 Saturation 85 L 89 L O2 % 45.0 ABG pCO2 51.6 H 61.0 H ABG pO2 57 L 68 L Alexis Test Positive Respiration Rate 14 O2 Delivery Device BiPAP Not entered Vent Mode Not entered Not entered Clinical Comments [id number] Rhythm Strip Rhythm Strip: Sinus Tach Rate: 121 Ectopy: None Physical Exam Const alert, oriented x3 and no apparent distress Constitutional Narrative: Patient is currently on Airvo, she is alert and oriented x 3 General Appearance: cooperative, well kempt and well developed Orientation / Consciousness: awake, oriented to person, oriented to place and oriented to time HEENT normocephalic, head/scalp atraumatic and moist oral mucous membranes Eyes PERRL, EOMs intact bilaterally and conjunctivae normal Neck supple, no JVD, thyroid normal and no carotid bruits General: trachea midline Resp normal respiratory effort, no retractions and no use of accessory muscles Resp Narrative: Breath sounds are diminished bilaterally Auscultation: Negative for rales, rhonchi or wheezes Cardio regular rate, regular rhythm, S1 normal heart sound, S2 normal heart sound, no murmurs, no rub and no gallops GI normal to inspection, nondistended, normoactive bowel sounds, soft to palpation, non-tender and non-distended Extremity no clubbing, cyanosis or edema Skin no rashes or lesions noted General Skin Exam: no breakdown Neuro oriented x3, CN's II-XII intact bilaterally, moves all extremities, no focal motor deficits and no sensory deficits noted Sensorium / Orientation: awake and alert Speech: speech normal Psych affect normal Assessment & Plan Assessment/Plan (1) COPD with acute exacerbation: PLAN: Plan 1. Acute on chronic respiratory failure with hypoxemia and hypercapnia-continue aerosol treatments, IV corticosteroids and patient was given 1 dose of IV diuresis today. Pulmonary medicine is participating in her care, patient is currently on Airvo #2 end-stage COPD-complicates care, management, recovery, and prognosis, patient will remain on current treatment including aerosols, empiric antibiotics, and IV corticosteroids. #3 chronic abdominal pain-patient had a pancreatic block injection done recently which did not help, I have elected to place her on tramadol for pain #4 chronic anxiety-patient is on low-dose Ativan twice daily Total clinical time spent by myself addressing the patient's medical issues, reviewing all of her data, and collaborating with patient's care team: 50 minutes Charges/Coding Visit Charges Inpatient E&M: 78502 [facility] Hosp L3
[2024-12-05] MEDS: Atorvastatin Calcium 10 MG Tablet PO (22:12)
[2024-12-05] MEDS: Mirtazapine 15 MG Tablet 45 MG PO (22:12)
[2024-12-05] MEDS: hydrOXYzine PAM 25 MG Capsule PO (22:13)
[2024-12-06] VITALS (16 sets, daily range): BP systolic 106–128; BP diastolic 49–70; PULSE 70–85; RESP 15–24; TEMP 36.5–36.8; O2SAT 88–95; BMI 24.0
[2024-12-06] MEDS: Ipratropium/Albuterol Sulfate 3 ML AMPUL.NEB INHALATION ×6 (03:50→23:30)
[2024-12-06] MEDS: traMADol 50 MG Tablet 100 MG PO ×3 (03:51→21:24)
[2024-12-06] MEDS: levoFLOXacin 750 MG Tablet PO (05:41)
[2024-12-06] MEDS: Methylprednisolone Sod Succ 40 MG/ML VIAL IV ×3 (05:41→21:24)
[2024-12-06 07:18] LABS: Absolute Lymphocyte Count 1.17 X10^3/uL (0.83-4.51); Absolute Neutrophil Count 23.2 X10^3/uL (2.0-7.7); Basophil# 0.05 X10^3/uL; Basophil% 0.2 % (0-1); Hematocrit 39.6 % (37-47); Hemoglobin 12.6 g/dL (12.0-15.0); Lymphocyte # 1.17 X10^3/ul (0.83-4.51); Lymphocyte % 4.5 % (19-41); Mean Corp Hgb Conc 31.8 g/dL (32-36); Mean Corpuscular Hgb 27.3 pg (27.0-32.0); Mean Corpuscular Volume 85.7 fL (81-99); Mean Platelet Vol. 10.5 fl (6.2-12.0); Monocyte# 1.58 X10^3/uL; NRBC Flagged by Analyzer 0 % (0-5); Neutrophil # 23.21 X10^3/uL (2.7-7.7); Neutrophil % 88.4 % (47-70); POSITIVE DIFFERENTIAL YES; Platelet Count 260 K/mm3 (150-450); RBC Distribution Width CV 15.3 % (11.6-14.6); RBC Distribution Width SD 47.7 fl (35.1-43.9); Red Blood Count 4.62 M/mm3 (4.2-5.4); White Blood Count 26.2 K/mm3 (4.4-11.0)
[2024-12-06 07:23] LABS: Differential Indicated SCAN CRITERIA MET
[2024-12-06 08:15] LABS: Pro- Brain NATRIURETIC PEPTIDE 2014 pg/mL (<=900); Procalcitonin 0.31 ng/mL (<=0.10)
[2024-12-06 08:20] LABS: Anion Gap 13 (5-15); BUN 44 mg/dL (4-19); BUN/Creat Ratio 27.8 RATIO (10-20); Calcium,Total 9.3 mg/dL (7.6-11.0); Carbon Dioxide 23.2 mmol/L (21.0-32.0); Chloride 98 mmol/L (98-108); Creatinine, Serum 1.57 mg/dL (0.70-1.20); EST Glomerular Filtration Rate 37 (>60); Estimated Creatinine Clearance 31.13 ml/min (50-250); Glucose 166 mg/dL (70-99); Potassium 4.9 mmol/L (3.3-5.1); Sodium Level 134 mmol/L (133-145)
[2024-12-06 09:28] LABS: Platelet Estimate A (ADEQ)
[2024-12-06 09:29] LABS: Pathologist Review May foll
[2024-12-06] MEDS: LORazepam 0.5 MG Tablet PO ×2 (11:06→21:22)
[2024-12-06] MEDS: Metoprolol Tartrate 25 MG Tablet PO ×2 (11:07→21:23)
[2024-12-06] MEDS: hydroCHLOROthiazide 12.5mg 12.5 MG PO (11:07)
[2024-12-06] MEDS: guaiFENesin 1,200 MG Tablet 1200 MG PO ×2 (11:07→21:23)
[2024-12-06] MEDS: Lisinopril 10 MG Tablet PO (11:07)
[2024-12-06] MEDS: ARIPiprazole 5 MG Tablet PO (11:07)
[2024-12-06] MEDS: Cholecalciferol (VIT D3) 25 MCG TABLET (1,000 UNITS) 50 MCG PO (11:07)
[2024-12-06] MEDS: Pantoprazole Sodium 40 MG Tablet PO (11:08)
[2024-12-06] MEDS: NYSTATIN 500,000 UNIT/5 ML UDC 500000 UNIT PO ×4 (11:08→21:23)
[2024-12-06] MEDS: amLODIPine 5 MG Tablet PO (11:08)
[2024-12-06] MEDS: Enoxaparin 40 MG/0.4 ML Syringe SC (11:08)
--- NOTE | 2024-12-06 11:34 | PCM.PN.INT ---
Assessment & Plan Assessment/Plan (1) COPD with acute exacerbation: (2) Acute hypoxic respiratory failure: PLAN: Plan RECOMMENDATIONS: 1. Continue to wean FiO2 as tolerated. 2. Continue empiric antibiotics, bronchodilators and steroids. 3. Awaiting results of echocardiogram. 4. Hold on diuretics given interval increase in creatinine. 5. Continue appropriate DVT prophylaxis. 6. Continue nicotine replacement therapy. 7. Aggressive medical management of underlying anxiety. IMPRESSIONS: 1. Acute respiratory failure with hypoxemia and hypercapnia Unclear precipitating etiology. CTA chest showed no evidence for pulmonary embolism. There was no evidence of a focal infiltrate to suggest pneumonia. Echocardiogram is currently pending. I would recommend holding on administration of diuretics given interval increasing creatinine. Respiratory viral panel was negative. The patient does have evidence of end-stage lung disease based upon pulmonary function studies completed last month. It is certainly plausible that the patient's anxiety may have also contributed to her acute decompensation with increasing respiratory rate leading to worsening air trapping. The patient appears to have stabilized on heated high flow oxygen, which will be weaned to maintain saturations at or above 90%. It should be noted that the patient had a similar hospital admission in October 2022 in the setting of a panic attack with generalized anxiety disorder leading to acute decompensation in her respiratory status. 2. Chronic tobacco dependency/bipolar disorder/depression/anxiety/chronic pancreatitis Complicates care, management, recovery and prognosis. Continue home medications as indicated. This note was generated with [employer] dictation software. It may contain incorrect words, spelling, and punctuation that were not noted in checking the note before signing. Subjective Subjective The patient was seen and examined at the bedside this morning. Events from the last 24 hours have been reviewed. The patient is currently afebrile, hemodynamically stable and maintaining appropriate oxygen saturations on Airvo heated high flow with an FiO2 requirement of 45%. The patient does feel somewhat improved from yesterday. Echocardiogram was completed with results pending. White count is elevated at 26,000. Creatinine has increased some to 1.57. BNP is elevated at 2014. Objective Data Objective Data The patient's most recent lab work, culture data and imaging studies have all been personally reviewed. COVID, influenza and RSV PCR's were negative. Vital Signs: Vital Signs Temp Pulse Resp BP Pulse Ox O2 Del Method O2 Flow Rate 98.2 F 77 22 H 117/58 L 92 Airvo 59 12/06/24 09:20 12/06/24 11:07 12/06/24 10:38 12/06/24 11:07 12/06/24 10:38 12/06/24 09:20 12/06/24 09:20 FiO2 45 12/06/24 10:38 Oxygen Flow Rate (L/min) 59 Oxygen Delivery Method Airvo Weight: 135 lb 5.821 oz Body Mass Index (BMI) 24.0 Intake & Output: Intake and Output for Last 24 Hours 12/05/24 12/05/24 12/06/24 00:59 23:59 23:59 Intake Total 240 / 240 100 / 100 Output Total 750 / 750 Balance 240 / 240 -650 / -650 Lab / Micro Data Attestation: I reviewed the patient's lab results. 12/06/24 07:02 12/06/24 07:02 Labs: Laboratory Results - last 24 hr 12/06/24 07:02: WBC 26.2 H, RBC 4.62, Hgb 12.6, Hct 39.6, MCV 85.7, MCH 27.3, MCHC 31.8 L, RDW Std Deviation 47.7 H, RDW Coeff of Min 15.3 H, Plt Count 260, MPV 10.5, Immature Gran % (Auto) 0.900, Neut % (Auto) 88.4 H, Lymph % (Auto) 4.5 L, [place] % (Auto) 6.0, Eos % (Auto) 0.0, Baso % (Auto) 0.2, Absolute Neuts (auto) 23.2 H, Absolute Lymphs (auto) 1.17, Nucleated RBC % 0, Diff Path Review January, Platelet Estimate A, Sodium 134, Potassium 4.9, Chloride 98, Carbon Dioxide 23.2, Anion Gap 13, BUN 44 H, Creatinine 1.57 H, Estim Creat Clear Calc 31.13 L, Est GFR (MDRD) Non-Af 37 L, BUN/Creatinine Ratio 27.8 H, Glucose 166 H, Calcium 9.3, NT pro BNP II 2014 H, Procalcitonin 0.31 H Micro: Microbiology 12/04/24 21:23 Mucosa - Nasopharyngeal Respiratory Panel (PCR) - Final 12/04/24 16:22 Mucosa - Nose SARS-CoV-2, Influenza & RSV (PCR) - Final Rhythm Strip Rhythm Strip: Sinus Tach Rate: 121 Ectopy: None Physical Exam Const alert, oriented x3 and no apparent distress General Appearance: cooperative HEENT normocephalic and head/scalp atraumatic Eyes PERRL, EOMs intact bilaterally and conjunctivae normal Neck supple General: trachea midline Chest inspection of chest normal Resp normal respiratory effort Auscultation: wheezes and diminished lung sounds Cardio regular rate and regular rhythm GI normal to inspection, nondistended, normoactive bowel sounds Extremity no clubbing, cyanosis or edema Skin no rashes or lesions noted Neuro CN's II-XII intact bilaterally, moves all extremities and no focal motor deficits Psych Mood & Affect: anxious Charges/Coding Visit Charges Inpatient E&M: 77098 Subs Hosp L2
[2024-12-06] MEDS: 0.9% Saline Lock 10 ML Syringe IV ×2 (14:35→21:25)
--- NOTE | 2024-12-06 15:03 | CASEMGMT ---
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 SW met with patient. Introduced self and role at [facility]. Patient confirmed she would like to change her POA papers. However, patient said she is not up for it today. Patient asked SW to come back tomorrow around noon. SW told patient SW will see her tomorrow. Joanne MACHADO
--- NOTE | 2024-12-06 20:24 | PN.HOSP_ITS ---
Reason for Visit Reason for Visit: Diagnoses Stricture of artery (12/04/24) Chronic obstructive pulmonary disease with (acute) exacerbation (12/04/24) Acute respiratory failure with hypoxia (12/04/24) Solitary pulmonary nodule (12/04/24) Subjective Subjective Patient was seen and examined today, I talked with pulmonary medicine about her care, she seems to be making some slow progress with her respiratory failure. Echocardiogram was performed and it showed a normal EF with no significant valvular heart disease. Pulmonary artery pressure was not able to be estimated. Objective Data Objective Data Vital Signs: Vital Signs Temp Pulse Resp BP Pulse Ox O2 Del Method O2 Flow Rate 97.7 F L 76 18 106/49 L 94 Airvo 45 12/06/24 15:20 12/06/24 15:20 12/06/24 15:20 12/06/24 15:20 12/06/24 15:20 12/06/24 15:20 12/06/24 15:20 FiO2 47 12/06/24 15:20 Oxygen Flow Rate (L/min) 45 Oxygen Delivery Method Airvo Weight: 61.4 kg Body Mass Index (BMI) 24.0 Intake & Output: Intake and Output for Last 24 Hours 12/05/24 12/05/24 12/06/24 00:59 23:59 23:59 Intake Total 240 / 240 100 / 100 480 / 480 Output Total 750 / 750 Balance 240 / 240 -650 / -650 480 / 480 Lab / Micro Data 12/06/24 07:02 12/06/24 07:02 Labs: Laboratory Results - last 24 hr 12/06/24 07:02: WBC 26.2 H, RBC 4.62, Hgb 12.6, Hct 39.6, MCV 85.7, MCH 27.3, M CHC 31.8 L, RDW Std Deviation 47.7 H, RDW Coeff of Min 15.3 H, Plt Count 260, MPV 10.5, Immature Gran % (Auto) 0.900, Neut % (Auto) 88.4 H, Lymph % (Auto) 4.5 L, [place] % (Auto) 6.0, Eos % (Auto) 0.0, Baso % (Auto) 0.2, Absolute Neuts (auto) 23.2 H, Absolute Lymphs (auto) 1.17, Nucleated RBC % 0, Diff Path Review January, Platelet Estimate A, Sodium 134, Potassium 4.9, Chloride 98, Carbon Dioxide 23.2, Anion Gap 13, BUN 44 H, Creatinine 1.57 H, Estim Creat Clear Calc 31.13 L, Est GFR (MDRD) Non-Af 37 L, BUN/Creatinine Ratio 27.8 H, Glucose 166 H, Calcium 9.3, NT pro BNP II 2014 H, Procalcitonin 0.31 H Micro: Microbiology 12/04/24 21:23 Mucosa - Nasopharyngeal Respiratory Panel (PCR) - Final 12/04/24 16:22 Mucosa - Nose SARS-CoV-2, Influenza & RSV (PCR) - Final Radiography Diagnostic Testing: Radiology Impression Echocardiogram 12/05/24 13:19 Interpretation Summary The estimated ejection fraction is 70 %. Unable to assess diastolic dysfunction. Trivial mitral valve insufficiency. Ordering Physician: Gonzalo Sebastian Referring Physician: GUS ELKINS Performed By: Grazyna Lazaro RCS Rhythm Strip Rhythm Strip: Sinus Tach Rate: 121 Ectopy: None Physical Exam Narrative alert, oriented x3 and no apparent distress Constitutional Narrative: Patient is currently on Airvo, she is alert and oriented x 3 General Appearance: cooperative, well kempt and well developed Orientation / Consciousness: awake, oriented to person, oriented to place and oriented to time HEENT normocephalic, head/scalp atraumatic and moist oral mucous membranes Eyes PERRL, EOMs intact bilaterally and conjunctivae normal Neck supple, no JVD, thyroid normal and no carotid bruits General: trachea midline Resp normal respiratory effort, no retractions and no use of accessory muscles Resp Narrative: Breath sounds are diminished bilaterally Auscultation: Negative for rales, rhonchi or wheezes Cardio regular rate, regular rhythm, S1 normal heart sound, S2 normal heart sound, no murmurs, no rub and no gallops GI normal to inspection, nondistended, normoactive bowel sounds, soft to palpation, non-tender and non-distended Extremity no clubbing, cyanosis or edema Skin no rashes or lesions noted General Skin Exam: no breakdown Neuro oriented x3, CN's II-XII intact bilaterally, moves all extremities, no focal motor deficits and no sensory deficits noted Sensorium / Orientation: awake and alert Speech: speech normal Psych affect normal Assessment & Plan Assessment/Plan (1) COPD with acute exacerbation: PLAN: Plan 1. Acute on chronic respiratory failure with hypoxemia and hypercapnia-continue aerosol treatments, IV corticosteroids and empiric antibiotics. Pulse ox will be monitored #2 end-stage COPD-complicates care, management, recovery, and prognosis, patient will remain on current treatment including aerosols, empiric antibiotics, and IV corticosteroids. #3 chronic abdominal pain-patient had a pancreatic block injection done recently which did not help, I have elected to place her on tramadol for pain #4 chronic anxiety-patient is on low-dose Ativan twice daily Total clinical time spent by myself addressing the patient's medical issues, reviewing all of her data, and collaborating with patient's care team: 35 minutes Charges/Coding Visit Charges Inpatient E&M: 06018 Subs Hosp L2
[2024-12-06] MEDS: Atorvastatin Calcium 10 MG Tablet PO (21:23)
[2024-12-06] MEDS: Mirtazapine 15 MG Tablet 45 MG PO (21:24)
[2024-12-06] MEDS: hydrOXYzine PAM 25 MG Capsule PO (21:24)
[2024-12-07] VITALS (15 sets, daily range): BP systolic 105–161; BP diastolic 61–77; PULSE 68–94; RESP 16–20; TEMP 36.4–36.7; O2SAT 91–94; BMI 24.5
[2024-12-07] MEDS: Ipratropium/Albuterol Sulfate 3 ML AMPUL.NEB INHALATION ×6 (03:00→23:35)
[2024-12-07] MEDS: Methylprednisolone Sod Succ 40 MG/ML VIAL IV ×3 (05:45→22:30)
[2024-12-07] MEDS: 0.9% Saline Lock 10 ML Syringe IV (05:52)
[2024-12-07] MEDS: traMADol 50 MG Tablet 100 MG PO ×3 (06:38→22:31)
--- NOTE | 2024-12-07 09:59 | PCM.PN.INT ---
Assessment & Plan Assessment/Plan (1) COPD with acute exacerbation: (2) Acute hypoxic respiratory failure: PLAN: Plan RECOMMENDATIONS: 1. Continue to wean supplemental oxygen as tolerated. 2. Continue empiric antibiotics, bronchodilators and steroids. 3. The patient is to remain n.p.o., pending evaluation by speech therapy. 4. Continue appropriate DVT prophylaxis. 5. Continue nicotine replacement therapy. 6. Aggressive medical management of underlying anxiety. IMPRESSIONS: 1. Acute respiratory failure with hypoxemia and hypercapnia Unclear precipitating etiology. CTA chest showed no evidence for pulmonary embolism. There was no evidence of a focal infiltrate to suggest pneumonia. Echocardiogram revealed intact systolic function. Right ventricular systolic pressure was unable to be estimated. Respiratory viral panel was negative. The patient does have evidence of end-stage lung disease based upon pulmonary function studies completed last month. It is certainly plausible that the patient's anxiety may have also contributed to her acute decompensation with increasing respiratory rate leading to worsening air trapping. In addition, there are concerns that the patient may be aspirating with p.o. intake. Therefore, the patient has been made n.p.o., pending evaluation by speech therapy. In the interim, continue to wean supplemental oxygen to maintain saturations at or above 90%. The patient does have a history of a prior hospitalization in October 2022 in the setting of a panic attack with generalized anxiety disorder leading to acute decompensation in her respiratory status. 2. Chronic tobacco dependency/bipolar disorder/depression/anxiety/chronic pancreatitis Complicates care, management, recovery and prognosis. Continue home medications as indicated. This note was generated with [employer] dictation software. It may contain incorrect words, spelling, and punctuation that were not noted in checking the note before signing. Subjective Subjective The patient was seen and examined at the bedside this morning. Events from the last 24 hours have been reviewed. The patient is currently afebrile, hemodynamically stable and maintaining appropriate oxygen saturations on 15 L/min high flow nasal cannula. The patient currently denies any resting shortness of breath. Nursing staff reported concerns for potential aspiration this morning when eating eggs. Therefore, the patient has been made n.p.o., pending evaluation by speech therapy. She remains on antimicrobials, bronchodilators and steroids. Objective Data Objective Data The patient's most recent lab work, culture data and imaging studies have all been personally reviewed. COVID, influenza and RSV PCR's were negative. Vital Signs: Vital Signs Temp Pulse Resp BP Pulse Ox O2 Del Method O2 Flow Rate 98.1 F 94 18 161/62 H 92 Airvo 45 12/07/24 08:56 12/07/24 08:56 12/07/24 08:56 12/07/24 08:56 12/07/24 08:56 12/07/24 08:56 12/07/24 08:56 FiO2 56 12/07/24 08:56 Oxygen Flow Rate (L/min) 45 Oxygen Delivery Method Airvo Weight: 138 lb 10.732 oz Body Mass Index (BMI) 24.5 Intake & Output: Intake and Output for Last 24 Hours 12/05/24 12/06/24 12/07/24 23:59 23:59 23:59 Intake Total 100 / 100 480 / 600 180 / 180 Output Total 750 / 750 150 / 150 Balance -650 / -650 480 / 600 30 / 30 Lab / Micro Data Attestation: I reviewed the patient's lab results. 12/06/24 07:02 12/06/24 07:02 Labs: Laboratory Results - last 24 hr 12/06/24 07:02: WBC 26.2 H, RBC 4.62, Hgb 12.6, Hct 39.6, MCV 85.7, MCH 27.3, MCHC 31.8 L, RDW Std Deviation 47.7 H, RDW Coeff of Min 15.3 H, Plt Count 260, MPV 10.5, Immature Gran % (Auto) 0.900, Neut % (Auto) 88.4 H, Lymph % (Auto) 4.5 L, [place] % (Auto) 6.0, Eos % (Auto) 0.0, Baso % (Auto) 0.2, Absolute Neuts (auto) 23.2 H, Absolute Lymphs (auto) 1.17, Nucleated RBC % 0, Diff Path Review January, Platelet Estimate A, Sodium 134, Potassium 4.9, Chloride 98, Carbon Dioxide 23.2, Anion Gap 13, BUN 44 H, Creatinine 1.57 H, Estim Creat Clear Calc 31.13 L, Est GFR (MDRD) Non-Af 37 L, BUN/Creatinine Ratio 27.8 H, Glucose 166 H, Calcium 9.3, NT pro BNP II 2014 H, Procalcitonin 0.31 H Micro: Microbiology 12/04/24 21:23 Mucosa - Nasopharyngeal Respiratory Panel (PCR) - Final 12/04/24 16:22 Mucosa - Nose SARS-CoV-2, Influenza & RSV (PCR) - Final Radiography Diagnostic Testing: Radiology Impression Echocardiogram 12/05/24 13:19 Interpretation Summary The estimated ejection fraction is 70 %. Unable to assess diastolic dysfunction. Trivial mitral valve insufficiency. Ordering Physician: Gonzalo Sebastian Referring Physician: GUS ELKINS Performed By: Grazyna Lazaro RCS Rhythm Strip Rhythm Strip: Sinus Tach Rate: 121 Ectopy: None Physical Exam Const alert, oriented x3 and no apparent distress General Appearance: cooperative HEENT normocephalic and head/scalp atraumatic Eyes PERRL, EOMs intact bilaterally and conjunctivae normal Neck supple General: trachea midline Chest inspection of chest normal Resp normal respiratory effort Auscultation: wheezes and diminished lung sounds Cardio regular rate and regular rhythm GI normal to inspection, nondistended, normoactive bowel sounds Extremity no clubbing, cyanosis or edema Skin no rashes or lesions noted Neuro CN's II-XII intact bilaterally, moves all extremities and no focal motor deficits Psych Mood & Affect: anxious Charges/Coding Visit Charges Inpatient E&M: 18452 Subs Hosp L2
[2024-12-07] MEDS: Enoxaparin 40 MG/0.4 ML Syringe SC (10:13)
[2024-12-07 12:01] LABS: Pro- Brain NATRIURETIC PEPTIDE 3318 pg/mL (<=900)
[2024-12-07] MEDS: LORazepam 0.5 MG Tablet PO ×2 (14:05→22:30)
[2024-12-07] MEDS: Metoprolol Tartrate 25 MG Tablet PO ×2 (14:06→22:30)
[2024-12-07] MEDS: guaiFENesin 1,200 MG Tablet 1200 MG PO ×2 (14:06→22:31)
[2024-12-07] MEDS: Pantoprazole Sodium 40 MG Tablet PO (14:07)
[2024-12-07] MEDS: ARIPiprazole 5 MG Tablet PO (14:07)
[2024-12-07] MEDS: amLODIPine 5 MG Tablet PO (14:07)
[2024-12-07] MEDS: NYSTATIN 500,000 UNIT/5 ML UDC 500000 UNIT PO ×3 (14:07→22:31)
[2024-12-07] MEDS: hydroCHLOROthiazide 12.5mg 12.5 MG PO (14:08)
[2024-12-07] MEDS: Cholecalciferol (VIT D3) 25 MCG TABLET (1,000 UNITS) 50 MCG PO (14:08)
[2024-12-07] MEDS: Lisinopril 10 MG Tablet PO (14:08)
--- NOTE | 2024-12-07 14:45 | CASEMGMT ---
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 SW assisted patient in completing documents. Copies were made and given to patient along with original. A copy was also placed in patient's chart. Joanne MACHADO
--- NOTE | 2024-12-07 17:46 | PCM.PN.HOSP ---
Reason for Visit Reason for Visit: Diagnoses Stricture of artery (12/04/24) Chronic obstructive pulmonary disease with (acute) exacerbation (12/04/24) Acute respiratory failure with hypoxia (12/04/24) Solitary pulmonary nodule (12/04/24) Subjective Subjective Patient was seen and examined today, patient had a choking episode this morning at breakfast and was seen by speech therapy. Patient was placed back on a diet this afternoon. Objective Data Objective Data Vital Signs: Vital Signs Temp Pulse Resp BP Pulse Ox O2 Del Method O2 Flow Rate 98.1 F 79 20 H 137/66 H 93 High Flow 10 12/07/24 14:02 12/07/24 15:24 12/07/24 15:24 12/07/24 14:02 12/07/24 14:02 12/07/24 15:27 12/07/24 15:27 FiO2 56 12/07/24 08:56 Oxygen Flow Rate (L/min) 10 Oxygen Delivery Method High Flow Weight: 62.9 kg Body Mass Index (BMI) 24.5 Intake & Output: Intake and Output for Last 24 Hours 12/05/24 12/06/24 12/07/24 23:59 23:59 23:59 Intake Total 100 / 100 480 / 600 240 / 240 Output Total 750 / 750 450 / 450 Balance -650 / -650 480 / 600 -210 / -210 Lab / Micro Data 12/06/24 07:02 12/06/24 07:02 Labs: Laboratory Results - last 24 hr 12/07/24 10:55: NT pro BNP II 3318 H Micro: Microbiology 12/07/24 14:40 Mucosa - Nose SARS-CoV-2, Influenza & RSV (PCR) - Final 12/04/24 21:23 Mucosa - Nasopharyngeal Respiratory Panel (PCR) - Final 12/04/24 16:22 Mucosa - Nose SARS-CoV-2, Influenza & RSV (PCR) - Final Rhythm Strip Rhythm Strip: Sinus Tach Rate: 121 Ectopy: None Physical Exam Narrative alert, oriented x3 and no apparent distress Constitutional Narrative: Patient is currently on Airvo, she is alert and oriented x 3 General Appearance: cooperative, well kempt and well developed Orientation / Consciousness: awake, oriented to person, oriented to place and oriented to time HEENT normocephalic, head/scalp atraumatic and moist oral mucous membranes Eyes PERRL, EOMs intact bilaterally and conjunctivae normal Neck supple, no JVD, thyroid normal and no carotid bruits General: trachea midline Resp normal respiratory effort, no retractions and no use of accessory muscles Resp Narrative: Breath sounds are diminished bilaterally Auscultation: Negative for rales, rhonchi or wheezes Cardio regular rate, regular rhythm, S1 normal heart sound, S2 normal heart sound, no murmurs, no rub and no gallops GI normal to inspection, nondistended, normoactive bowel sounds, soft to palpation, non-tender and non-distended Extremity no clubbing, cyanosis or edema Skin no rashes or lesions noted General Skin Exam: no breakdown Neuro oriented x3, CN's II-XII intact bilaterally, moves all extremities, no focal motor deficits and no sensory deficits noted Sensorium / Orientation: awake and alert Speech: speech normal Psych affect normal Assessment & Plan Assessment/Plan (1) COPD with acute exacerbation: PLAN: Plan 1. Acute on chronic respiratory failure with hypoxemia and hypercapnia-continue aerosol treatments, IV corticosteroids and empiric antibiotics. Pulse ox will be monitored #2 end-stage COPD-complicates care, management, recovery, and prognosis, patient will remain on current treatment including aerosols, empiric antibiotics, and IV corticosteroids. #3 chronic abdominal pain-patient had a pancreatic block injection done recently which did not help, I have elected to place her on tramadol for pain #4 chronic anxiety-patient is on low-dose Ativan twice daily Total clinical time spent by myself addressing the patient's medical issues, reviewing all of her data, and collaborating with patient's care team: 35 minutes Charges/Coding Visit Charges Inpatient E&M: 29224 Subs Hosp L2
[2024-12-07] MEDS: Atorvastatin Calcium 10 MG Tablet PO (22:30)
[2024-12-07] MEDS: hydrOXYzine PAM 25 MG Capsule PO (22:31)
[2024-12-07] MEDS: Mirtazapine 15 MG Tablet 45 MG PO (22:31)
[2024-12-08] VITALS (16 sets, daily range): BP systolic 102–125; BP diastolic 59–84; PULSE 75–109; RESP 20–23; TEMP 36.4–36.6; O2SAT 92–96; BMI 23.8
[2024-12-08] MEDS: Ipratropium/Albuterol Sulfate 3 ML AMPUL.NEB INHALATION ×6 (03:05→23:51)
[2024-12-08] MEDS: 0.9% Saline Lock 10 ML Syringe IV ×3 (06:11→21:33)
[2024-12-08] MEDS: Methylprednisolone Sod Succ 40 MG/ML VIAL IV ×3 (06:11→21:33)
[2024-12-08] MEDS: levoFLOXacin 750 MG Tablet PO (06:16)
--- NOTE | 2024-12-08 09:44 | PCM.PN.INT ---
Assessment & Plan Assessment/Plan (1) COPD with acute exacerbation: (2) Acute hypoxic respiratory failure: PLAN: Plan RECOMMENDATIONS: 1. Continue to wean supplemental oxygen as tolerated. 2. Continue empiric antibiotics, bronchodilators and steroids. 3. Tentative plans for modified barium swallow today per speech therapy. 4. Continue appropriate DVT prophylaxis. 5. Continue nicotine replacement therapy. 6. Aggressive medical management of underlying anxiety. IMPRESSIONS: 1. Acute respiratory failure with hypoxemia and hypercapnia Unclear precipitating etiology. CTA chest showed no evidence for pulmonary embolism. There was no evidence of a focal infiltrate to suggest pneumonia. Echocardiogram revealed intact systolic function. Right ventricular systolic pressure was unable to be estimated. Respiratory viral panel was negative. The patient does have evidence of end-stage lung disease based upon pulmonary function studies completed last month. It is certainly plausible that the patient's anxiety may have also contributed to her acute decompensation with increasing respiratory rate leading to worsening air trapping. In addition, there are concerns that the patient may be aspirating with p.o. intake. Therefore, the patient has been made n.p.o., pending completion of modified barium swallow. In the interim, continue to wean supplemental oxygen to maintain saturations at or above 90%. The patient does have a history of a prior hospitalization in October 2022 in the setting of a panic attack with generalized anxiety disorder leading to acute decompensation in her respiratory status. 2. Chronic tobacco dependency/bipolar disorder/depression/anxiety/chronic pancreatitis Complicates care, management, recovery and prognosis. Continue home medications as indicated. This note was generated with [employer] dictation software. It may contain incorrect words, spelling, and punctuation that were not noted in checking the note before signing. Subjective Subjective The patient was seen and examined at the bedside this morning. Events from the last 24 hours have been reviewed. The patient is currently afebrile, hemodynamically stable and maintaining appropriate oxygen saturations on 10 L/min via nasal cannula. The patient was seen by speech therapy yesterday with tentative plans for modified barium swallow today. Objective Data Objective Data The patient's most recent lab work, culture data and imaging studies have all been personally reviewed. COVID, influenza and RSV PCR's were negative. Vital Signs: Vital Signs Temp Pulse Resp BP Pulse Ox O2 Del Method O2 Flow Rate 97.8 F 79 20 H 106/59 L 92 High Flow 12/08/24 04:47 12/08/24 07:16 12/08/24 07:16 12/08/24 04:47 12/08/24 07:52 12/08/24 07:52 12/08/24 07:52 FiO2 56 12/07/24 08:56 Oxygen Flow Rate (L/min) 13 Oxygen Delivery Method High Flow Weight: 134 lb 11.239 oz Body Mass Index (BMI) 23.8 Intake & Output: Intake and Output for Last 24 Hours 12/06/24 12/07/24 12/08/24 23:59 23:59 23:59 Intake Total 480 / 600 840 / 960 240 / 240 Output Total 1250 / 1650 400 / 400 Balance 480 / 600 -410 / -690 -160 / -160 Lab / Micro Data Attestation: I reviewed the patient's lab results. 12/06/24 07:02 12/06/24 07:02 Labs: Laboratory Results - last 24 hr 12/07/24 10:55: NT pro BNP II 3318 H Micro: Microbiology 12/07/24 14:40 Mucosa - Nose SARS-CoV-2, Influenza & RSV (PCR) - Final 12/04/24 21:23 Mucosa - Nasopharyngeal Respiratory Panel (PCR) - Final 12/04/24 16:22 Mucosa - Nose SARS-CoV-2, Influenza & RSV (PCR) - Final Radiography Diagnostic Testing: Radiology Impression Echocardiogram 12/05/24 13:19 Interpretation Summary The estimated ejection fraction is 70 %. Unable to assess diastolic dysfunction. Trivial mitral valve insufficiency. Ordering Physician: Gonzalo Sebastian Referring Physician: GUS ELKINS Performed By: Grazyna Lazaro RCS Rhythm Strip Rhythm Strip: Sinus Tach Rate: 121 Ectopy: None Physical Exam Const alert, oriented x3 and no apparent distress General Appearance: cooperative HEENT normocephalic and head/scalp atraumatic Eyes PERRL, EOMs intact bilaterally and conjunctivae normal Neck supple General: trachea midline Chest inspection of chest normal Resp normal respiratory effort Auscultation: wheezes and diminished lung sounds Cardio regular rate and regular rhythm GI normal to inspection, nondistended, normoactive bowel sounds Extremity no clubbing, cyanosis or edema Skin no rashes or lesions noted Neuro CN's II-XII intact bilaterally, moves all extremities and no focal motor deficits Psych Mood & Affect: anxious Charges/Coding Visit Charges Inpatient E&M: 68577 Subs Hosp L2
[2024-12-08] MEDS: Enoxaparin 40 MG/0.4 ML Syringe SC (11:00)
[2024-12-08] MEDS: guaiFENesin 1,200 MG Tablet 1200 MG PO ×2 (11:00→21:32)
[2024-12-08] MEDS: Metoprolol Tartrate 25 MG Tablet PO ×2 (11:00→21:33)
[2024-12-08] MEDS: ARIPiprazole 5 MG Tablet PO (11:00)
[2024-12-08] MEDS: Lisinopril 10 MG Tablet PO (11:01)
[2024-12-08] MEDS: Pantoprazole Sodium 40 MG Tablet PO (11:01)
[2024-12-08] MEDS: NYSTATIN 500,000 UNIT/5 ML UDC 500000 UNIT PO ×3 (11:01→21:33)
[2024-12-08] MEDS: Cholecalciferol (VIT D3) 25 MCG TABLET (1,000 UNITS) 50 MCG PO (11:01)
[2024-12-08] MEDS: LORazepam 0.5 MG Tablet PO ×2 (11:04→21:43)
--- NOTE | 2024-12-08 13:01 | SP.MBSS_ITS ---
Modified Barium Swallow Patient Information Study Date: 12/08/24 Study Time: 13:00 Direct Billable Minutes: 71 Total Minutes procedure & reportin Diagnosis: Acute hypoxic respiratory failure J96.01 Referring Physician: Yrn Kahn Reason for Referral: Assess swallow function, assess risk for aspiration, and determine recommendations for least restrictive diet textures and compensatory strategies to improve safety of swallow. Medical History: Pt presented to the ED at [facility] on 12/04/2024 with the chief complaint of SOB. PMHx is significant for Pancreatic stones, HLD (hyperlipidemia), History of alcohol abuse, Pneumonia, Acute on chronic hypoxic respiratory failure, Stage 3 severe COPD by GOLD classification, Asthma, COPD, Arthritis, History of back problems, Anxiety and depression, Chronic pancreatitis, HPV infection, Anemia, Tobacco abuse, GERD, and Benign hypertension. Admitted for management of Acute hypoxic and hypercapnic respiratory failure secondary to acute exacerbation of COPD. Pt was made NPO and ST order received for CBSE d/t reported instance of choking on eggs w/ O2 sats dropping to the 70s. BSE 12/08/2024 recommended Easy to Chew textures / Thin liquids w/ recommendation for MBSS today to further assess risk for aspiration. Current Diet Ordered: Easy to Chew textures / Thin liquids Mental Status: Impaired Respiratory Status: Oxygenating on 4L/M nasal cannula (15L via nasal cannula) Penetration-Aspiration Scale Penetration-Aspiration Scale: OBJECTIVE ASSESSMENT OF SWALLOW FUNCTION (QUANTITATIVE ? PER TRIAL): PENETRATION / ASPIRATION SCALE (WHITE): 1 = does not enter airway 2 = enters airway/above vocal folds/ejected 3 = enters airway/above vocal folds/not ejected 4 = enters airway/contacts vocal folds/ejected 5 = enters airway/contacts vocal folds/not ejected 6 = enters airway/below vocal folds/ejected 7 = enters airway/below vocal folds/not ejected despite effort 8 = enters airway/below vocal folds/no effort VIDEOFLOROSCOPIC SCALE SCORE (WHITE): Grade I = aspiration of material that has penetrated into the laryngeal vestibule, intact cough reflex Grade II = aspiration < 10 % of the bolus, intact cough reflex Grade III = aspiration of < 10 % of the bolus, reduced cough reflex or aspiration of > 10 % of the bolus, intact cough reflex Grade IV = aspiration of > 10 % of the bolus, reduced cough reflex Penetration-Aspiration Scale Score Thin Liquid via teaspoon: Result: 2= enter airway/above vocal folds/ejected Thin Liquid via teaspoon Trial 2: Result: 2= enter airway/above vocal folds/ejected Thin Liquid via small single sip: cup: Result: 3= enters airways/above vocal folds/not ejected Kirby Thick Liquid via small single sip: cup: Result: 2= enter airway/above vocal folds/ejected Pudding via teaspoon: Result: 1= does not enter airway Comment: Trace post prandial laryngeal penetration of previous trial. Esophageal screen - Complete and timely clearance. 1/2 Cookie: Result: 1= does not enter airway Comment: Esophageal screen - Retention throughout the esophagus. Thin Liquid via sequential sips:straw: Result: 2= enter airway/above vocal folds/ejected Comment: Esophageal screen - 3 liquid washes required to clear esophageal retention of cookie. Oral Phase Labial Seal: No Labial Escape Tongue Control During Bolus Hold: Posterior escape of greater than half of bolus Bolus Preparation/Mastication: Disorganized chewing/mashing with solid pieces of bolus unchewed Bolus Transport/Lingual Motion: Repetitive/disorganized tongue motion Oral Residue: Residue collection on oral structures Pharyngeal Phase Initiation of Pharyngeal Swallow: Bolus head in pyriforms Soft Palate Elevation: Trace column of contrast/air between soft palate and pharyngeal wall Laryngeal Elevation: Partial superior movement thyroid cart/partial apprx aryt- epig petiole Anterior Hyoid Excursion: Partial anterior movement Epiglottic Movement: Complete inversion Laryngeal Vestibule Closure at Height of Swallow: Incomplete; narrow column of air/contrast in laryngeal vestibule Pharyngeal Stripping Wave: Present - diminished Pharyngoesophageal Segment Opening: Parital distension and partial duration; parital obstruction of flow Tongue Base Retraction: Narrow column of contrast between tongue base & post. pharyngeal wall Pharyngeal Residue: Collection of residue within or on pharyngeal structures Esophageal Phase Esophageal Clearance: Esophageal retention Diagnosis/Impression Diagnosis: Mild-moderate oropharyngeal dysphagia R13.12; Esophageal dysphagia R13.14 Impression: The oral phase is marked by... -Decreased bolus control w/ premature posterior loss of >1/2 of thin liquids to the pyriforms prior to swallow onset. -Lingual pumping for A-P transport. -Decreased mastication with small pieces of cookie un-chewed. The pharyngeal phase is marked by... -Delayed swallow onset. -Decreased pharyngeal motility due to decreased TB retraction and pharyngeal stripping wave resulting in mild pharyngeal residue. -Decreased airway closure due to decreased anterior hyoid excursion and laryngeal elevation w/ laryngeal penetration of thin liquids w/o complete ejection 2X. No aspiration observed. The esophageal phase is marked by... -Esophageal retention of cookie, which required 3 liquid washes to fully clear. Recommendations Diet: Soft and Bite Sized Textures and Thin Liquids Compensatory Strategies: Small Bites, Small Sips, Slow Rate, Alternate bites/solids and sips/liquids (1:1), Sitting upright and Remain sitting upright for 30 minutes after PO intake Supervision: 1:1 Direct Supervision (staff supervision, all food/meals) Recommend Repeat Modified Barium Swallow: TBD Need for Skilled Speech Therapy Services: Yes Comment: -Train the patient in use of strategies to decrease risk for aspiration and reflux aspiration. -Ongoing assessment of diet tolerance of recommended textures. If poor diet tolerance or worsening respiratory status, consider downgrade to puree textures / thin liquids. -Train the patient in oropharyngeal exercise program to improve bolus control, swallow onset, airway closure, and pharyngeal motility (lingual resistance, Azalia, Rosa, effortful). Recommended Referrals: GI Consult Education Completed: 1. Described result of evaluation. and 2. Pt understands evaluation & agrees with goals and treatment plan. Status Active ST Patient: Active Contact Information [facility] Speech Therapy:: Brianna Up M.A. [facility]? Speech-Language Pathologist?? [facility] [address] [place] [address]? [email or web address]?? [phone]
--- NOTE | 2024-12-08 16:20 | PCM.PN.HOSP ---
Reason for Visit Reason for Visit: Diagnoses Stricture of artery (12/04/24) Chronic obstructive pulmonary disease with (acute) exacerbation (12/04/24) Acute respiratory failure with hypoxia (12/04/24) Solitary pulmonary nodule (12/04/24) Subjective Subjective Patient was seen and examined today, she is currently on 12 L of high flow oxygen. Patient at times was confused this morning when I was talking with her, she was seen by speech therapy today and they recommended a GI consult-due to the patient's high flow oxygen however I did not feel that gastroenterology could perform an EGD on the patient or add anything to her care at this time. I discussed this with speech therapy, they will try to supplement her diet with liquids-patient had a Haley doom cookie stuck in her esophagus during her cookie swallow test today. This ultimately dislodged. Objective Data Objective Data Vital Signs: Vital Signs Temp Pulse Resp BP Pulse Ox O2 Del Method O2 Flow Rate 97.5 F L 75 20 H 102/76 93 High Flow 12 12/08/24 11:09 12/08/24 15:00 12/08/24 15:00 12/08/24 11:09 12/08/24 14:49 12/08/24 14:49 12/08/24 14:49 FiO2 56 12/07/24 08:56 Oxygen Flow Rate (L/min) 12 Oxygen Delivery Method High Flow Weight: 61.1 kg Body Mass Index (BMI) 23.8 Intake & Output: Intake and Output for Last 24 Hours 12/06/24 12/07/24 12/08/24 23:59 23:59 23:59 Intake Total 480 / 600 840 / 960 240 / 240 Output Total 1250 / 1650 400 / 400 Balance 480 / 600 -410 / -690 -160 / -160 Lab / Micro Data 12/06/24 07:02 12/06/24 07:02 Micro: Microbiology 12/07/24 14:40 Mucosa - Nose SARS-CoV-2, Influenza & RSV (PCR) - Final 12/04/24 21:23 Mucosa - Nasopharyngeal Respiratory Panel (PCR) - Final 12/04/24 16:22 Mucosa - Nose SARS-CoV-2, Influenza & RSV (PCR) - Final Rhythm Strip Rhythm Strip: Sinus Tach Rate: 121 Ectopy: None Physical Exam Narrative alert, oriented x3 and no apparent distress Constitutional Narrative: Patient is currently on Airvo, she is alert and oriented x 3 General Appearance: cooperative, well kempt and well developed Orientation / Consciousness: awake, oriented to person, oriented to place and oriented to time HEENT normocephalic, head/scalp atraumatic and moist oral mucous membranes Eyes PERRL, EOMs intact bilaterally and conjunctivae normal Neck supple, no JVD, thyroid normal and no carotid bruits General: trachea midline Resp normal respiratory effort, no retractions and no use of accessory muscles Resp Narrative: Breath sounds are diminished bilaterally Auscultation: Negative for rales, rhonchi or wheezes Cardio regular rate, regular rhythm, S1 normal heart sound, S2 normal heart sound, no murmurs, no rub and no gallops GI normal to inspection, nondistended, normoactive bowel sounds, soft to palpation, non-tender and non-distended Extremity no clubbing, cyanosis or edema Skin no rashes or lesions noted General Skin Exam: no breakdown Neuro oriented x3, CN's II-XII intact bilaterally, moves all extremities, no focal motor deficits and no sensory deficits noted Sensorium / Orientation: awake and alert Speech: speech normal Psych affect normal Assessment & Plan Assessment/Plan (1) COPD with acute exacerbation: PLAN: Plan 1. Acute on chronic respiratory failure with hypoxemia and hypercapnia-continue aerosol treatments, IV corticosteroids and empiric antibiotics. Pulse ox will be monitored, prognosis is guarded at this point, patient is a full code. #2 end-stage COPD-complicates care, management, recovery, and prognosis, patient will remain on current treatment including aerosols, empiric antibiotics, and IV corticosteroids. #3 chronic abdominal pain-patient had a pancreatic block injection done recently which did not help, I have elected to place her on tramadol for pain #4 chronic anxiety-patient is on low-dose Ativan twice daily #5 oropharyngeal dysphagia-etiology unclear, speech therapy is working with the patient, patient's oxygen requirement is too high for the patient to undergo an EGD without intubating her. Total clinical time spent by myself addressing the patient's medical issues, reviewing all of her data, and collaborating with patient's care team: 35 minutes Charges/Coding Visit Charges Inpatient E&M: 33815 Subs Hosp L2
[2024-12-08] MEDS: Mirtazapine 15 MG Tablet 45 MG PO (21:32)
[2024-12-08] MEDS: Atorvastatin Calcium 10 MG Tablet PO (21:32)
[2024-12-08] MEDS: hydrOXYzine PAM 25 MG Capsule PO (21:33)
[2024-12-08] MEDS: traMADol 50 MG Tablet 100 MG PO (21:48)
[2024-12-09] VITALS (12 sets, daily range): BP systolic 94–149; BP diastolic 71–94; PULSE 82–108; RESP 18–24; TEMP 36.2–36.9; O2SAT 86–99; BMI 23.5
[2024-12-09] MEDS: 0.9% Saline Lock 10 ML Syringe IV ×2 (05:37→20:31)
[2024-12-09] MEDS: Methylprednisolone Sod Succ 40 MG/ML VIAL IV ×3 (05:37→20:31)
[2024-12-09] MEDS: Ipratropium/Albuterol Sulfate 3 ML AMPUL.NEB INHALATION ×3 (05:51→18:56)
[2024-12-09 07:33] LABS: Hematocrit 42.4 % (37-47); Hemoglobin 13.4 g/dL (12.0-15.0); Mean Corp Hgb Conc 31.6 g/dL (32-36); Mean Corpuscular Hgb 27.2 pg (27.0-32.0); Mean Platelet Vol. 10.8 fl (6.2-12.0); POSITIVE COUNT YES; POSITIVE MORPHOLOGY YES; Platelet Count 296 K/mm3 (150-450); RBC Distribution Width CV 15.1 % (11.6-14.6); RBC Distribution Width SD 47.7 fl (35.1-43.9); Red Blood Count 4.93 M/mm3 (4.2-5.4); White Blood Count 15.9 K/mm3 (4.4-11.0)
[2024-12-09 07:41] LABS: Differential Indicated MANUAL DIFF
--- NOTE | 2024-12-09 08:09 | PCM.PN.INT ---
Assessment & Plan Assessment/Plan (1) COPD with acute exacerbation: (2) Acute hypoxic respiratory failure: PLAN: Plan RECOMMENDATIONS: 1. Continue to wean supplemental oxygen as tolerated. 2. Continue bronchodilators and steroids. The patient completed treatment course of azithromycin. 3. Dietary advancement per speech therapy. 4. Continue appropriate DVT prophylaxis. 5. Continue nicotine replacement therapy. 6. Aggressive medical management of underlying anxiety. 7. Perform walking oximetry study prior to consideration for discharge home. 8. Outpatient pulmonary follow-up after discharge is warranted. IMPRESSIONS: 1. Acute respiratory failure with hypoxemia and hypercapnia Unclear precipitating etiology. CTA chest showed no evidence for pulmonary embolism. There was no evidence of a focal infiltrate to suggest pneumonia. Echocardiogram revealed intact systolic function. Right ventricular systolic pressure was unable to be estimated. Respiratory viral panel was negative. The patient does have evidence of end-stage lung disease based upon pulmonary function studies completed last month. It is certainly plausible that the patient's anxiety may have also contributed to her acute decompensation with increasing respiratory rate leading to worsening air trapping. In addition, there are concerns that the patient may be aspirating with p.o. intake. Therefore, the patient completed a modified barium swallow with mild to moderate oropharyngeal dysphagia noted. Speech therapy is following with dietary advancement per recommendations. In the interim, continue to wean supplemental oxygen to maintain saturations at or above 90%. The patient does have a history of a prior hospitalization in October 2022 in the setting of a panic attack with generalized anxiety disorder leading to acute decompensation in her respiratory status. Recommend performing a 6-minute walk test prior to consideration for discharge home. The patient should follow-up in the pulmonary medicine office within 2 weeks of discharge. 2. Chronic tobacco dependency/bipolar disorder/depression/anxiety/chronic pancreatitis Complicates care, management, recovery and prognosis. Continue home medications as indicated. This note was generated with [employer] dictation software. It may contain incorrect words, spelling, and punctuation that were not noted in checking the note before signing. Subjective Subjective The patient was seen and examined at the bedside this morning. Events from the last 24 hours have been reviewed. The patient is currently afebrile, hemodynamically stable and maintaining appropriate oxygen saturations on 4 L/min via nasal cannula. The patient completed the modified barium swallow yesterday with mild to moderate oropharyngeal dysphagia noted. Speech therapy subsequently recommended GI consultation. The patient remains stable from a clinical perspective on scheduled bronchodilators and steroids. Objective Data Objective Data The patient's most recent lab work, culture data and imaging studies have all been personally reviewed. COVID, influenza and RSV PCR's were negative. Vital Signs: Vital Signs Temp Pulse Resp BP Pulse Ox O2 Del Method O2 Flow Rate 97.2 F L 84 20 H 149/76 H 92 Nasal Cannula 4 12/09/24 03:30 12/09/24 05:52 12/09/24 05:52 12/09/24 03:30 12/09/24 05:52 12/09/24 05:52 12/09/24 05:52 FiO2 56 12/07/24 08:56 Oxygen Flow Rate (L/min) 4 Oxygen Delivery Method Nasal Cannula Weight: 134 lb 11.239 oz Body Mass Index (BMI) 23.8 Intake & Output: Intake and Output for Last 24 Hours 12/07/24 12/08/24 12/09/24 23:59 23:59 23:59 Intake Total 840 / 960 240 / 340 100 / 100 Output Total 1250 / 1650 400 / 950 950 / 950 Balance -410 / -690 -160 / -610 -850 / -850 Lab / Micro Data Attestation: I reviewed the patient's lab results. 12/09/24 06:59 12/09/24 06:59 Labs: Laboratory Results - last 24 hr 12/09/24 06:59: WBC 15.9 H, RBC 4.93, Hgb 13.4, Hct 42.4, MCV 86.0, MCH 27.2, MCHC 31.6 L, RDW Std Deviation 47.7 H, RDW Coeff of Min 15.1 H, Plt Count 296, MPV 10.8, Neut % (Auto) Not Reportable Micro: Microbiology 12/07/24 14:40 Mucosa - Nose SARS-CoV-2, Influenza & RSV (PCR) - Final 12/04/24 21:23 Mucosa - Nasopharyngeal Respiratory Panel (PCR) - Final 12/04/24 16:22 Mucosa - Nose SARS-CoV-2, Influenza & RSV (PCR) - Final Radiography Diagnostic Testing: Radiology Impression Echocardiogram 12/05/24 13:19 Interpretation Summary The estimated ejection fraction is 70 %. Unable to assess diastolic dysfunction. Trivial mitral valve insufficiency. Ordering Physician: Gonzalo Sebastian Referring Physician: GUS ELKINS Performed By: Grazyna Lazaro RCS Rhythm Strip Rhythm Strip: Sinus Tach Rate: 121 Ectopy: None Physical Exam Const alert, oriented x3 and no apparent distress General Appearance: cooperative HEENT normocephalic and head/scalp atraumatic Eyes PERRL, EOMs intact bilaterally and conjunctivae normal Neck supple General: trachea midline Chest inspection of chest normal Resp normal respiratory effort Auscultation: wheezes and diminished lung sounds Cardio regular rate and regular rhythm GI normal to inspection, nondistended, normoactive bowel sounds Extremity no clubbing, cyanosis or edema Skin no rashes or lesions noted Neuro CN's II-XII intact bilaterally, moves all extremities and no focal motor deficits Psych Mood & Affect: anxious Charges/Coding Visit Charges Inpatient E&M: 66321 Subs Hosp L2
[2024-12-09 08:17] LABS: Lymphocyte 10 % (19-41); Monocyte 6 % (0-10); Neutrophil-Segmented 84 % (47-70); Total Cells Counted 100 (MANUAL DIFF)
[2024-12-09 08:18] LABS: Pathologist Review May foll; Platelet Estimate ADEQUATE (ADEQ); Red Cell Morphology NORM C+C NORMAL (NORM C&C)
[2024-12-09 08:19] LABS: Absolute Lymphocyte Count 1.59 X10^3/uL (0.83-4.51); Absolute Neutrophil Count 13.4 X10^3/uL (2.0-7.7)
[2024-12-09 08:38] LABS: Anion Gap 13 (5-15); BUN 35 mg/dL (4-19); BUN/Creat Ratio 40.8 RATIO (10-20); Calcium,Total 9.8 mg/dL (7.6-11.0); Carbon Dioxide 27.3 mmol/L (21.0-32.0); Chloride 96 mmol/L (98-108); Creatinine, Serum 0.85 mg/dL (0.70-1.20); EST Glomerular Filtration Rate 78 (>60); Estimated Creatinine Clearance 57.49 ml/min (50-250); Glucose 176 mg/dL (70-99); Sodium Level 135 mmol/L (133-145)
[2024-12-09] MEDS: ARIPiprazole 5 MG Tablet PO (10:38)
[2024-12-09] MEDS: Enoxaparin 40 MG/0.4 ML Syringe SC (10:38)
[2024-12-09] MEDS: LORazepam 0.5 MG Tablet PO ×2 (10:38→20:31)
[2024-12-09] MEDS: Cholecalciferol (VIT D3) 25 MCG TABLET (1,000 UNITS) 50 MCG PO (10:39)
[2024-12-09] MEDS: NYSTATIN 500,000 UNIT/5 ML UDC 500000 UNIT PO ×4 (10:39→20:30)
[2024-12-09] MEDS: guaiFENesin 1,200 MG Tablet 1200 MG PO ×2 (10:39→20:31)
[2024-12-09] MEDS: Pantoprazole Sodium 40 MG Tablet PO (10:39)
[2024-12-09] MEDS: traMADol 50 MG Tablet 100 MG PO ×2 (10:45→20:34)
--- NOTE | 2024-12-09 13:51 | PN_ITS ---
Subjective Subjective Patient seen and examined. She was lying comfortably in bed. She had no active complaints. He denied any fever, any chills, any palpitations or dizziness, any nausea or vomiting. Review of systems otherwise negative. She is on 4 L of oxygen. She is down to 4 L from 12 L yesterday. Objective Data Objective Data Vital Signs: Vital Signs Temp Pulse Resp BP Pulse Ox O2 Del Method O2 Flow Rate 98.5 F 94 20 H 94/83 H 95 Nasal Cannula 4 12/09/24 10:31 12/09/24 10:31 12/09/24 10:31 12/09/24 10:31 12/09/24 10:31 12/09/24 10:31 12/09/24 10:31 FiO2 56 12/07/24 08:56 Oxygen Flow Rate (L/min) 4 Oxygen Delivery Method Nasal Cannula Weight: 132 lb 11.492 oz Body Mass Index (BMI) 23.5 Intake & Output: Intake and Output for Last 24 Hours 12/07/24 12/08/24 12/09/24 23:59 23:59 23:59 Intake Total 840 / 960 240 / 340 100 / 100 Output Total 1250 / 1650 400 / 950 950 / 950 Balance -410 / -690 -160 / -610 -850 / -850 Lab / Micro Data 12/09/24 06:59 12/09/24 06:59 Labs: Laboratory Results - last 24 hr 12/09/24 06:59: WBC 15.9 H, RBC 4.93, Hgb 13.4, Hct 42.4, MCV 86.0, MCH 27.2, M CHC 31.6 L, RDW Std Deviation 47.7 H, RDW Coeff of Min 15.1 H, Plt Count 296, MPV 10.8, Neut % (Auto) Not Reportable, Absolute Neuts (auto) 13.4 H, Absolute Lymphs (auto) 1.59, Total Counted 100, Neutrophils % (Manual) 84 H, Lymphocytes % (Manual) 10 L, Monocytes % (Manual) 6, Diff Path Review January, Platelet Estimate ADEQUATE, RBC Morphology NORM C+C, Sodium 135, Potassium 5.0, Chloride 96 L, Carbon Dioxide 27.3, Anion Gap 13, BUN 35 H, Creatinine 0.85, Estim Creat Clear Calc 57.49, Est GFR (MDRD) Non-Af 78, BUN/Creatinine Ratio 40.8 H, Glucose 176 H, Calcium 9.8 Micro: Microbiology 12/07/24 14:40 Mucosa - Nose SARS-CoV-2, Influenza & RSV (PCR) - Final 12/04/24 21:23 Mucosa - Nasopharyngeal Respiratory Panel (PCR) - Final 12/04/24 16:22 Mucosa - Nose SARS-CoV-2, Influenza & RSV (PCR) - Final Rhythm Strip Rhythm Strip: Sinus Tach Rate: 121 Ectopy: None Physical Exam Const alert, oriented x3 and no apparent distress General Appearance: cooperative and well developed HEENT normocephalic, head/scalp atraumatic, moist oral mucous membranes and oropharynx normal Eyes PERRL and EOMs intact bilaterally Neck no lymphadenopathy and supple Lymph Lymphatic: no lymphadenopathy noted and no lymphedema noted Resp Resp Narrative: mildly diminished breath sounds bibasally, no wheezes or crackles. On 4L of oxygen. Cardio regular rate, regular rhythm, S1 normal heart sound, S2 normal heart sound and no murmurs GI normal to inspection, nondistended, normoactive bowel sounds, soft to palpation, non-tender and non-distended Extremity normal capillary refill, no clubbing, cyanosis or edema and no calf tenderness General Extremity: no tenderness to palpation of joints or extremities Skin General Skin Exam: no breakdown Neuro CN's II-XII intact bilaterally, no focal motor deficits and no sensory deficits noted Motor Exam: strength 5/5 throughout and general weakness Psych thought process normal, cooperative and affect normal Appearance: appropriate Assessment & Plan Assessment/Plan (1) COPD with acute exacerbation: (2) Acute hypoxic respiratory failure: PLAN: Plan #Acute on chronic hypoxic respiratory failure due to COPD exacerbation * On IV Solu-Medrol. On breathing treatment with bronchodilators. * Down to 4 L of oxygen from 12 L yesterday. * Titrate oxygen to maintain saturation above 90%. Breathing treatments bronchodilators. * Of note CTA of the chest on admission showed no evidence of PE. 2D echo showed normal left ventricular systolic function and EF of 70%. Respiratory panel was also negative. * #Chronic abdominal pain * On tramadol. Had a pancreatic block injection which does not seem to have helped. Will follow-up with pain management on outpatient basis. #Oropharyngeal dysphagia * Speech therapy on board. * Modified barium swallow on 12/08/2024 showed mild to moderate oropharyngeal dysphagia * On modified diet as per speech therapy. #Hypertension: On amlodipine and hydrochlorothiazide as well as lisinopril #Chronic anxiety: On Ativan as needed DVT prophylaxis: lovenox Charges/Coding Visit Charges Inpatient E&M: 48980 Subs Hosp L2
[2024-12-09] MEDS: Lisinopril 10 MG Tablet PO (14:21)
--- NOTE | 2024-12-09 15:27 | CASEMGMT ---
SARWAT LOMELI NOTE: Per [facility], OP ST is recommended. She also states if GI is not C/S while pt is in the hospital, then pt should have OP GI C/S. Dr Bonilla aware. She states she will order GI C/S. SARWAT LOMELI to room. Pt made aware OP ST is recommended. She states she would be willing to go for OP therapy. Made aware of locations in [place] that do this. She was made aware a script for OP ST would be provided @ dc and she can take to location of choice. She voices appreciation. Pt states her dtr plans to bring her portable O2 in @ dc for her to go home on. Pt declines need for OP PT or OT. She denies having other dc needs/concerns. Green sheet placed on chart w/instructions if pt qualifies for increase in home O2. Script on chart for OP ST. to sign and script to be provided to pt. Jenny GALLOWAY RN CM
[2024-12-09] MEDS: Atorvastatin Calcium 10 MG Tablet PO (20:31)
[2024-12-09] MEDS: Mirtazapine 15 MG Tablet 45 MG PO (20:31)
[2024-12-09] MEDS: Metoprolol Tartrate 25 MG Tablet PO (20:31)
[2024-12-09] MEDS: hydrOXYzine PAM 25 MG Capsule PO (20:31)
[2024-12-10] VITALS (12 sets, daily range): BP systolic 98–131; BP diastolic 71–89; PULSE 86–101; RESP 16–22; TEMP 36.1–37; O2SAT 92–95; BMI 23.7
[2024-12-10] MEDS: 0.9% Saline Lock 10 ML Syringe IV ×2 (05:32→21:37)
[2024-12-10] MEDS: Methylprednisolone Sod Succ 40 MG/ML VIAL IV (05:32)
[2024-12-10 06:48] LABS: Hematocrit 43.5 % (37-47); Hemoglobin 13.8 g/dL (12.0-15.0); Mean Corp Hgb Conc 31.7 g/dL (32-36); Mean Corpuscular Hgb 27.2 pg (27.0-32.0); Mean Corpuscular Volume 85.6 fL (81-99); Mean Platelet Vol. 10.5 fl (6.2-12.0); POSITIVE COUNT YES; POSITIVE DIFFERENTIAL YES; POSITIVE MORPHOLOGY YES; Platelet Count 327 K/mm3 (150-450); RBC Distribution Width CV 14.9 % (11.6-14.6); RBC Distribution Width SD 46.8 fl (35.1-43.9); Red Blood Count 5.08 M/mm3 (4.2-5.4); White Blood Count 18.8 K/mm3 (4.4-11.0)
[2024-12-10 07:27] LABS: Anion Gap 11 (5-15); BUN 34 mg/dL (4-19); BUN/Creat Ratio 41.3 RATIO (10-20); Calcium,Total 9.5 mg/dL (7.6-11.0); Carbon Dioxide 28.4 mmol/L (21.0-32.0); Chloride 97 mmol/L (98-108); Creatinine, Serum 0.82 mg/dL (0.70-1.20); EST Glomerular Filtration Rate 81 (>60); Glucose 157 mg/dL (70-99); Potassium 5.2 mmol/L (3.3-5.1); Sodium Level 136 mmol/L (133-145)
[2024-12-10] MEDS: NYSTATIN 500,000 UNIT/5 ML UDC 500000 UNIT PO ×4 (08:39→21:04)
[2024-12-10] MEDS: LORazepam 0.5 MG Tablet PO ×2 (08:39→21:02)
[2024-12-10] MEDS: Metoprolol Tartrate 25 MG Tablet PO ×2 (08:40→21:03)
[2024-12-10] MEDS: Enoxaparin 40 MG/0.4 ML Syringe SC (08:40)
[2024-12-10] MEDS: ARIPiprazole 5 MG Tablet PO (08:40)
[2024-12-10] MEDS: guaiFENesin 1,200 MG Tablet 1200 MG PO ×2 (08:41→21:02)
[2024-12-10] MEDS: Pantoprazole Sodium 40 MG Tablet PO (08:41)
[2024-12-10] MEDS: Cholecalciferol (VIT D3) 25 MCG TABLET (1,000 UNITS) 50 MCG PO (08:42)
[2024-12-10] MEDS: Sodium Polystyrene Sulfonate 15 GM/60 ML UDC 30 GM PO (08:45)
[2024-12-10 09:05] LABS: Differential Indicated MANUAL DIFF
[2024-12-10 09:11] LABS: Platelet Estimate A (ADEQ); Total Cells Counted 100 (MANUAL DIFF)
[2024-12-10 09:12] LABS: Absolute Neutrophil Count 15.4 X10^3/uL (2.0-7.7); Pathologist Review May foll
[2024-12-10] MEDS: traMADol 50 MG Tablet 100 MG PO ×2 (10:00→21:38)
--- NOTE | 2024-12-10 12:51 | PN_ITS ---
Subjective Subjective Patient seen and examined. She said she felt much better today. She denied any fever, chills, cough, chest pain, palpitations, dizziness, nausea, vomiting or any other symptoms. Review of systems is otherwise negative. Objective Data Objective Data Vital Signs: Vital Signs Temp Pulse Resp BP Pulse Ox O2 Del Method O2 Flow Rate 97.3 F L 89 19 H 104/71 93 Nasal Cannula 4 12/10/24 08:15 12/10/24 08:40 12/10/24 08:15 12/10/24 10:01 12/10/24 08:15 12/10/24 08:26 12/10/24 08:26 FiO2 56 12/07/24 08:56 Oxygen Flow Rate (L/min) 4 Oxygen Delivery Method Nasal Cannula Weight: 134 lb 0.657 oz Body Mass Index (BMI) 23.7 Intake & Output: Intake and Output for Last 24 Hours 12/08/24 12/09/24 12/10/24 23:59 23:59 23:59 Intake Total 240 / 340 1180 / 1180 480 / 480 Output Total 400 / 950 1250 / 1400 150 / 150 Balance -160 / -610 -70 / -220 330 / 330 Lab / Micro Data 12/10/24 06:02 12/10/24 06:02 Labs: Laboratory Results - last 24 hr 12/10/24 06:02: WBC 18.8 H, RBC 5.08, Hgb 13.8, Hct 43.5, MCV 85.6, MCH 27.2, M CHC 31.7 L, RDW Std Deviation 46.8 H, RDW Coeff of Min 14.9 H, Plt Count 327, MPV 10.5, Neut % (Auto) Not Reportable, Absolute Neuts (auto) 15.4 H, Absolute Lymphs (auto) 1.50, Total Counted 100, Neutrophils % (Manual) 1 L, Diff Path Review January, Platelet Estimate A, Plt Morphology Comment G, Sodium 136, P otassium 5.2 H, Chloride 97 L, Carbon Dioxide 28.4, Anion Gap 11, BUN 34 H, Creatinine 0.82, Estim Creat Clear Calc 59.60, Est GFR (MDRD) Non-Af 81, B UN/Creatinine Ratio 41.3 H, Glucose 157 H, Calcium 9.5 Micro: Microbiology 12/07/24 14:40 Mucosa - Nose SARS-CoV-2, Influenza & RSV (PCR) - Final 12/04/24 21:23 Mucosa - Nasopharyngeal Respiratory Panel (PCR) - Final 12/04/24 16:22 Mucosa - Nose SARS-CoV-2, Influenza & RSV (PCR) - Final Rhythm Strip Rhythm Strip: Sinus Tach Rate: 121 Ectopy: None Physical Exam Const alert, oriented x3 and no apparent distress Constitutional Narrative: on 4L of oxygen by nasal canula. General Appearance: cooperative, well kempt and well developed Orientation / Consciousness: awake, oriented to person, oriented to place and oriented to time HEENT normocephalic, head/scalp atraumatic, moist oral mucous membranes and oropharynx normal Eyes PERRL, EOMs intact bilaterally and conjunctivae normal Neck no lymphadenopathy, supple, no JVD, thyroid normal and no carotid bruits General: trachea midline Lymph Lymphatic: no lymphadenopathy noted and no lymphedema noted Resp Resp Narrative: mildly diminished breath sounds bibasally, no wheezes or crackles. On 4L of oxygen. Cardio regular rate, regular rhythm, S1 normal heart sound, S2 normal heart sound and no murmurs GI normal to inspection, nondistended, normoactive bowel sounds, soft to palpation, non-tender and non-distended Extremity normal capillary refill, no clubbing, cyanosis or edema and no calf tenderness General Extremity: no tenderness to palpation of joints or extremities Skin no rashes or lesions noted General Skin Exam: no breakdown Neuro oriented x3, CN's II-XII intact bilaterally, moves all extremities, no focal motor deficits and no sensory deficits noted Sensorium / Orientation: awake and alert Speech: speech normal Motor Exam: strength 5/5 throughout and general weakness Psych thought process normal, cooperative and affect normal Appearance: appropriate Assessment & Plan Assessment/Plan (1) COPD with acute exacerbation: (2) Acute hypoxic respiratory failure: PLAN: Plan #Acute on chronic hypoxic respiratory failure due to COPD exacerbation * On IV Solu-Medrol. On breathing treatment with bronchodilators. * remains on 4L of oxygen by nasal canula * Titrate oxygen to maintain saturation above 90%. Breathing treatments bronchodilators. * Of note CTA of the chest on admission showed no evidence of PE. * 2D echo showed normal left ventricular systolic function and EF of 70%. Respiratory panel was also negative. * will switch to PO prednisone today. * #Chronic abdominal pain * On tramadol. Had a pancreatic block injection which does not seem to have helped. Will follow-up with pain management on outpatient basis. #Oropharyngeal dysphagia * Speech therapy on board. * Modified barium swallow on 12/08/2024 showed mild to moderate oropharyngeal dysphagia * On modified diet as per speech therapy. * gastroenterology also consulted for evaluation. * #Hypertension: On amlodipine and hydrochlorothiazide as well as lisinopril #Chronic anxiety: On Ativan as needed DVT prophylaxis: lovenox Charges/Coding Visit Charges Inpatient E&M: 59921 Subs Hosp L2
[2024-12-10 15:08] LABS: Neutrophil-Segmented 81 % (47-70)
[2024-12-10 15:09] LABS: Eosinophil 1 % (0-5); Lymphocyte 8 % (19-41); Metamyelocyte 3 % (0-1); Monocyte 4 % (0-10); Myelocyte 2 % (0-0); Neutrophil-Band 1 % (0-5)
[2024-12-10] MEDS: Ipratropium/Albuterol Sulfate 3 ML AMPUL.NEB INHALATION ×2 (15:34→19:45)
[2024-12-10] MEDS: Mirtazapine 15 MG Tablet 45 MG PO (21:02)
[2024-12-10] MEDS: Atorvastatin Calcium 10 MG Tablet PO (21:04)
[2024-12-10] MEDS: hydrOXYzine PAM 25 MG Capsule PO (21:04)
[2024-12-11] VITALS (14 sets, daily range): BP systolic 93–123; BP diastolic 65–87; PULSE 77–99; RESP 16–20; TEMP 36.1–36.6; O2SAT 93–98; BMI 23.7
[2024-12-11] MEDS: traMADol 50 MG Tablet 100 MG PO ×3 (05:24→18:32)
[2024-12-11 05:57] LABS: Hematocrit 44.1 % (37-47); Hemoglobin 13.9 g/dL (12.0-15.0); Mean Corp Hgb Conc 31.5 g/dL (32-36); Mean Corpuscular Hgb 27.1 pg (27.0-32.0); Mean Platelet Vol. 10.3 fl (6.2-12.0); POSITIVE COUNT YES; POSITIVE DIFFERENTIAL YES; POSITIVE MORPHOLOGY YES; Platelet Count 310 K/mm3 (150-450); RBC Distribution Width CV 14.8 % (11.6-14.6); RBC Distribution Width SD 46.7 fl (35.1-43.9); Red Blood Count 5.13 M/mm3 (4.2-5.4); White Blood Count 21.2 K/mm3 (4.4-11.0)
[2024-12-11 06:08] LABS: Differential Indicated MANUAL DIFF
[2024-12-11 06:59] LABS: Lymphocyte 36 % (19-41); Metamyelocyte 4 % (0-1); Monocyte 10 % (0-10); Myelocyte 1 % (0-0); Neutrophil-Segmented 49 % (47-70); Total Cells Counted 100 (MANUAL DIFF)
[2024-12-11 07:00] LABS: Absolute Lymphocyte Count 7.63 X10^3/uL (0.83-4.51); Absolute Neutrophil Count 10.4 X10^3/uL (2.0-7.7)
[2024-12-11 07:01] LABS: Anisocytosis 1+; Microcytosis 1+; Platelet Estimate ADEQUATE (ADEQ)
[2024-12-11 07:02] LABS: Ovalocyte 1+; Pathologist Review May foll
[2024-12-11 08:05] LABS: Anion Gap 13 (5-15); BUN 29 mg/dL (4-19); BUN/Creat Ratio 36.7 RATIO (10-20); Carbon Dioxide 27.6 mmol/L (21.0-32.0); Chloride 96 mmol/L (98-108); Creatinine, Serum 0.79 mg/dL (0.70-1.20); EST Glomerular Filtration Rate 85 (>60); Estimated Creatinine Clearance 61.86 ml/min (50-250); Glucose 79 mg/dL (70-99); Potassium 4.4 mmol/L (3.3-5.1); Sodium Level 137 mmol/L (133-145)
[2024-12-11] MEDS: predniSONE 20 MG Tablet 40 MG PO (08:14)
[2024-12-11] MEDS: hydroCHLOROthiazide 12.5mg 12.5 MG PO (08:14)
[2024-12-11] MEDS: ARIPiprazole 5 MG Tablet PO (10:24)
[2024-12-11] MEDS: Metoprolol Tartrate 25 MG Tablet PO ×2 (10:24→23:09)
[2024-12-11] MEDS: Enoxaparin 40 MG/0.4 ML Syringe SC (10:25)
[2024-12-11] MEDS: guaiFENesin 1,200 MG Tablet 1200 MG PO ×2 (10:26→23:14)
[2024-12-11] MEDS: amLODIPine 5 MG Tablet PO (10:26)
[2024-12-11] MEDS: NYSTATIN 500,000 UNIT/5 ML UDC 500000 UNIT PO ×4 (10:27→23:09)
[2024-12-11] MEDS: Pantoprazole Sodium 40 MG Tablet PO (10:27)
[2024-12-11] MEDS: Cholecalciferol (VIT D3) 25 MCG TABLET (1,000 UNITS) 50 MCG PO (10:27)
[2024-12-11] MEDS: LORazepam 0.5 MG Tablet PO ×2 (10:32→23:07)
[2024-12-11] MEDS: Ipratropium/Albuterol Sulfate 3 ML AMPUL.NEB INHALATION (10:49)
--- NOTE | 2024-12-11 11:34 | PN_ITS ---
Subjective Subjective Patient seen and examined. She is feeling better today. She is on 3 L of oxygen. She has no active complaints. Review of systems otherwise negative. She has remained hemodynamically stable. She is awaiting GI evaluation. Objective Data Objective Data Vital Signs: Vital Signs Temp Pulse Resp BP Pulse Ox O2 Del Method O2 Flow Rate 97.7 F L 91 18 93/69 93 Nasal Cannula 3 12/11/24 08:06 12/11/24 11:10 12/11/24 11:10 12/11/24 08:06 12/11/24 08:06 12/11/24 09:11 12/11/24 09:11 FiO2 56 12/07/24 08:56 Oxygen Flow Rate (L/min) 3 Oxygen Delivery Method Nasal Cannula Weight: 134 lb Body Mass Index (BMI) 23.7 Intake & Output: Intake and Output for Last 24 Hours 12/09/24 12/10/24 12/11/24 23:59 23:59 23:59 Intake Total 1180 / 1180 480 / 480 Output Total 1250 / 1400 150 / 150 Balance -70 / -220 330 / 330 Lab / Micro Data 12/11/24 04:25 12/11/24 04:25 Labs: Laboratory Results - last 24 hr 12/10/24 06:02: Neutrophils % (Manual) 81 H, Band Neutrophils % 1, Lymphocytes % (Manual) 8 L, Monocytes % (Manual) 4, Eosinophils % (Manual) 1, Metamyelocytes % 3 H, Myelocytes % 2 H 12/11/24 04:25: WBC 21.2 H, RBC 5.13, Hgb 13.9, Hct 44.1, MCV 86.0, MCH 27.1, M CHC 31.5 L, RDW Std Deviation 46.7 H, RDW Coeff of Min 14.8 H, Plt Count 310, MPV 10.3, Neut % (Auto) Not Reportable, Absolute Neuts (auto) 10.4 H, Absolute Lymphs (auto) 7.63 H, Total Counted 100, Neutrophils % (Manual) 49, Lymphocytes % (Manual) 36, Monocytes % (Manual) 10, Metamyelocytes % 4 H, Myelocytes % 1 H, Diff Path Review May , Platelet Estimate ADEQUATE, Anisocytosis 1+, Microcytosis 1+, Ovalocytes 1+, Sodium 137, Potassium 4.4, Chloride 96 L, Carbon Dioxide 27.6, Anion Gap 13, BUN 29 H, Creatinine 0.79, Estim Creat Clear Calc 61.86, Est GFR (MDRD) Non-Af 85, BUN/Creatinine Ratio 36.7 H, Glucose 79, Calcium 9.0 Micro: Microbiology 12/07/24 14:40 Mucosa - Nose SARS-CoV-2, Influenza & RSV (PCR) - Final 12/04/24 21:23 Mucosa - Nasopharyngeal Respiratory Panel (PCR) - Final 12/04/24 16:22 Mucosa - Nose SARS-CoV-2, Influenza & RSV (PCR) - Final Rhythm Strip Rhythm Strip: Sinus Tach Rate: 121 Ectopy: None Physical Exam Const alert, oriented x3 and no apparent distress Constitutional Narrative: on 4L of oxygen by nasal canula. General Appearance: cooperative, well kempt and well developed Orientation / Consciousness: awake, oriented to person, oriented to place and oriented to time HEENT normocephalic, head/scalp atraumatic, moist oral mucous membranes and oropharynx normal Eyes PERRL, EOMs intact bilaterally and conjunctivae normal Neck no lymphadenopathy, supple, no JVD, thyroid normal and no carotid bruits General: trachea midline Lymph Lymphatic: no lymphadenopathy noted and no lymphedema noted Resp normal respiratory effort, no retractions and no use of accessory muscles Resp Narrative: mildly diminished breath sounds bibasally, no wheezes or crackles. On 3L of oxygen. Cardio regular rate, regular rhythm, S1 normal heart sound and S2 normal heart sound GI normal to inspection, nondistended, normoactive bowel sounds, soft to palpation, non-tender and non-distended Extremity normal capillary refill, no clubbing, cyanosis or edema and no calf tenderness General Extremity: no tenderness to palpation of joints or extremities Skin no rashes or lesions noted General Skin Exam: no breakdown Neuro oriented x3, CN's II-XII intact bilaterally, moves all extremities, no focal motor deficits and no sensory deficits noted Sensorium / Orientation: awake and alert Speech: speech normal Motor Exam: strength 5/5 throughout and general weakness Psych thought process normal, cooperative and affect normal Appearance: appropriate Assessment & Plan Assessment/Plan (1) COPD with acute exacerbation: (2) Acute hypoxic respiratory failure: PLAN: Plan #Acute on chronic hypoxic respiratory failure due to COPD exacerbation * On breathing treatment with bronchodilators. * still remains on 4L of oxygen by nasal canula * Titrate oxygen to maintain saturation above 90%. Breathing treatments bronchodilators. * Of note CTA of the chest on admission showed no evidence of PE. * 2D echo showed normal left ventricular systolic function and EF of 70%. Respiratory panel was also negative. * now on PO prednisone * #Chronic abdominal pain * On tramadol. Had a pancreatic block injection which does not seem to have helped. Will follow-up with pain management on outpatient basis. #Leucocytosis: wbc is 21.2. Likely due to steroids. Will monitor for now. #Oropharyngeal dysphagia * Speech therapy on board. * Modified barium swallow on 12/08/2024 showed mild to moderate oropharyngeal dysphagia * On modified diet as per speech therapy. * gastroenterology also consulted for evaluation. Per Dr Segura today, for EGD tomorrow * #Hypertension: On amlodipine and hydrochlorothiazide as well as lisinopril #Chronic anxiety: On Ativan as needed DVT prophylaxis: lovenox Charges/Coding Visit Charges Inpatient E&M: 17518 Subs Hosp L2
[2024-12-11] MEDS: Atorvastatin Calcium 10 MG Tablet PO (23:09)
[2024-12-11] MEDS: hydrOXYzine PAM 25 MG Capsule PO (23:14)
[2024-12-11] MEDS: Mirtazapine 15 MG Tablet 45 MG PO (23:14)
[2024-12-12] VITALS (19 sets, daily range): BP systolic 96–143; BP diastolic 49–81; PULSE 73–97; RESP 16–20; TEMP 36.2–37.3; O2SAT 86–97; BMI 23.7
[2024-12-12] MEDS: Ipratropium/Albuterol Sulfate 3 ML AMPUL.NEB INHALATION ×4 (00:01→15:22)
[2024-12-12] MEDS: traMADol 50 MG Tablet 100 MG PO ×3 (01:02→16:36)
[2024-12-12 04:49] LABS: Hematocrit 44.4 % (37-47); Hemoglobin 13.7 g/dL (12.0-15.0); Mean Corp Hgb Conc 30.9 g/dL (32-36); Mean Corpuscular Hgb 26.6 pg (27.0-32.0); Mean Corpuscular Volume 86.2 fL (81-99); Mean Platelet Vol. 10.1 fl (6.2-12.0); POSITIVE COUNT YES; POSITIVE DIFFERENTIAL YES; POSITIVE MORPHOLOGY YES; Platelet Count 345 K/mm3 (150-450); RBC Distribution Width CV 14.6 % (11.6-14.6); RBC Distribution Width SD 46.5 fl (35.1-43.9); Red Blood Count 5.15 M/mm3 (4.2-5.4); White Blood Count 25.7 K/mm3 (4.4-11.0)
[2024-12-12 04:58] LABS: Differential Indicated MANUAL DIFF
[2024-12-12 05:11] LABS: Anion Gap 8 (5-15); BUN 25 mg/dL (4-19); Calcium,Total 8.9 mg/dL (7.6-11.0); Carbon Dioxide 34.4 mmol/L (21.0-32.0); Chloride 95 mmol/L (98-108); Creatinine, Serum 0.77 mg/dL (0.70-1.20); EST Glomerular Filtration Rate 87 (>60); Estimated Creatinine Clearance 63.47 ml/min (50-250); Glucose 80 mg/dL (70-99); Potassium 4.1 mmol/L (3.3-5.1); Sodium Level 137 mmol/L (133-145)
[2024-12-12 05:56] LABS: Neutrophil-Band 2 % (0-5); Neutrophil-Segmented 65 % (47-70); Total Cells Counted 100 (MANUAL DIFF)
[2024-12-12 05:57] LABS: Differential Comment SCANNED; Lymphocyte 17 % (19-41); Metamyelocyte 1 % (0-1); Monocyte 5 % (0-10); Myelocyte 7 % (0-0)
[2024-12-12 05:58] LABS: Absolute Lymphocyte Count 4.36 X10^3/uL (0.83-4.51); Absolute Neutrophil Count 17.2 X10^3/uL (2.0-7.7); Pathologist Review May foll
[2024-12-12] MEDS: Pantoprazole Sodium 40 MG Tablet PO (07:40)
[2024-12-12] MEDS: amLODIPine 5 MG Tablet PO ×2 (07:40→07:43)
[2024-12-12] MEDS: guaiFENesin 1,200 MG Tablet 1200 MG PO (07:41)
[2024-12-12] MEDS: Metoprolol Tartrate 25 MG Tablet PO (07:41)
[2024-12-12] MEDS: Cholecalciferol (VIT D3) 25 MCG TABLET (1,000 UNITS) 50 MCG PO (07:41)
[2024-12-12] MEDS: hydroCHLOROthiazide 12.5mg 12.5 MG PO (07:41)
[2024-12-12] MEDS: ARIPiprazole 5 MG Tablet PO (07:42)
[2024-12-12] MEDS: Enoxaparin 40 MG/0.4 ML Syringe SC (07:43)
[2024-12-12] MEDS: LORazepam 0.5 MG Tablet PO (07:43)
[2024-12-12] MEDS: NYSTATIN 500,000 UNIT/5 ML UDC 500000 UNIT PO (07:44)
[2024-12-12] MEDS: predniSONE 20 MG Tablet 40 MG PO (07:55)
--- NOTE | 2024-12-12 10:00 | PN.CC_ITS ---
Assessment & Plan Assessment/Plan (1) COPD with acute exacerbation: (2) Acute hypoxic respiratory failure: PLAN: Plan RECOMMENDATIONS: 1. Continue to wean supplemental oxygen as tolerated. 2. Continue bronchodilators and steroids. The patient completed treatment course of azithromycin. 3. Dietary advancement per speech therapy. 4. Continue appropriate DVT prophylaxis. 5. Continue nicotine replacement therapy. 6. Aggressive medical management of underlying anxiety. 7. Perform walking oximetry study prior to consideration for discharge home. 8. Outpatient pulmonary follow-up after discharge is warranted. 9. Will sign off at this time. Please call with any additional questions. IMPRESSIONS: 1. Acute respiratory failure with hypoxemia and hypercapnia Unclear precipitating etiology. However, aspiration and underlying anxiety are likely contributing factors. CTA chest showed no evidence for pulmonary embolism. There was no evidence of a focal infiltrate to suggest pneumonia. Echocardiogram revealed intact systolic function. Right ventricular systolic pressure was unable to be estimated. Respiratory viral panel was negative. The patient does have evidence of end-stage lung disease based upon pulmonary function studies completed last month. The patient completed a modified barium swallow with mild to moderate oropharyngeal dysphagia noted. Speech therapy is following with dietary advancement per recommendations. In addition, gastroenterology evaluation with EGD was recommended. The patient's oxygenation status has improved. Continue to wean supplemental oxygen to maintain saturations at or above 90%. Recommend performing a 6-minute walk test prior to consideration for discharge home. The patient should follow-up in the pulmonary medicine office within 2 weeks of discharge. 2. Chronic tobacco dependency/bipolar disorder/depression/anxiety/chronic pancreatitis Complicates care, management, recovery and prognosis. Continue home medications as indicated. This note was generated with [employer] dictation software. It may contain incorrect words, spelling, and punctuation that were not noted in checking the note before signing. Subjective Subjective The patient was seen and examined at the bedside this morning. Events from the last 24 hours have been reviewed. The patient is currently afebrile, hemodynamically stable and maintaining appropriate oxygen saturations on 3 L/min via nasal cannula. White blood cell count is elevated at 25,000. Creatinine is within normal limits. The patient is anxious to be discharged home. She is awaiting an upper endoscopy today by gastroenterology. Objective Data Objective Data The patient's most recent lab work, culture data and imaging studies have all been personally reviewed. COVID, influenza and RSV PCR's were negative. Vital Signs: Vital Signs Temp Pulse Resp BP Pulse Ox O2 Del Method O2 Flow Rate 97.9 F 97 16 143/81 H 93 Nasal Cannula 3 12/12/24 08:50 12/12/24 08:50 12/12/24 08:50 12/12/24 08:50 12/12/24 09:24 12/12/24 09:24 12/12/24 09:24 FiO2 56 12/07/24 08:56 Oxygen Flow Rate (L/min) 3 Oxygen Delivery Method Nasal Cannula Weight: 133 lb 13.129 oz Body Mass Index (BMI) 23.7 Intake & Output: Intake and Output for Last 24 Hours 12/10/24 12/11/24 12/12/24 23:59 23:59 23:59 Intake Total 480 / 480 760 / 1210 450 / 450 Output Total 150 / 150 0 / 0 Balance 330 / 330 760 / 1210 450 / 450 Lab / Micro Data Attestation: I reviewed the patient's lab results. 12/12/24 03:43 12/12/24 03:43 Labs: Laboratory Results - last 24 hr 12/12/24 03:43: WBC 25.7 H, RBC 5.15, Hgb 13.7, Hct 44.4, MCV 86.2, MCH 26.6 L, MCHC 30.9 L, RDW Std Deviation 46.5 H, RDW Coeff of Min 14.6, Plt Count 345, MPV 10.1, Neut % (Auto) Not Reportable, Absolute Neuts (auto) 17.2 H, Absolute Lymphs (auto) 4.36, Total Counted 100, Neutrophils % (Manual) 65, Band Neutrophils % 2, Lymphocytes % (Manual) 17 L, Monocytes % (Manual) 5, Metamyelocytes % 1, Myelocytes % 7 H, Differential Comment SCANNED, Diff Path Review January, Sodium 137, Potassium 4.1, Chloride 95 L, Carbon Dioxide 34.4 H , Anion Gap 8, BUN 25 H, Creatinine 0.77, Estim Creat Clear Calc 63.47, Est GFR (MDRD) Non-Af 87, BUN/Creatinine Ratio 32.0 H, Glucose 80, Calcium 8.9 Micro: Microbiology 12/10/24 21:20 Sputum, Expectorated/Coughed Gram Stain - Final 12/07/24 14:40 Mucosa - Nose SARS-CoV-2, Influenza & RSV (PCR) - Final 12/04/24 21:23 Mucosa - Nasopharyngeal Respiratory Panel (PCR) - Final 12/04/24 16:22 Mucosa - Nose SARS-CoV-2, Influenza & RSV (PCR) - Final Radiography Diagnostic Testing: Radiology Impression Echocardiogram 12/05/24 13:19 Interpretation Summary The estimated ejection fraction is 70 %. Unable to assess diastolic dysfunction. Trivial mitral valve insufficiency. Ordering Physician: Gonzalo Sebastian Referring Physician: GUS ELKINS Performed By: Grazyna Lazaro RCS Rhythm Strip Rhythm Strip: Sinus Tach Rate: 121 Ectopy: None Physical Exam Const alert, oriented x3 and no apparent distress General Appearance: cooperative HEENT normocephalic and head/scalp atraumatic Eyes PERRL, EOMs intact bilaterally and conjunctivae normal Neck supple General: trachea midline Chest inspection of chest normal Resp normal respiratory effort Auscultation: diminished lung sounds; Negative for rales, rhonchi or wheezes Cardio regular rate and regular rhythm GI normal to inspection, nondistended, normoactive bowel sounds Extremity no clubbing, cyanosis or edema Skin no rashes or lesions noted Neuro CN's II-XII intact bilaterally, moves all extremities and no focal motor deficits Psych Mood & Affect: anxious Charges/Coding Visit Charges Inpatient E&M: 16424 Subs Hosp L2
--- NOTE | 2024-12-12 12:03 | PCM.PRE.AN2 ---
ASA Classification* ASA Classification ASA Classification: 3 Assessment & Plan Anesthesia* Anesthesia Assessment Anesthesia Assessment: Discussed sedation and/or anesthesia options, risks, benefits, and alternatives with patient/parents/legal guardian/POA. Questions invited. The patient/parents/legal guardian/POA seems to understand and agrees to proceed with anesthesia plan. Reviewed the physical assessment, medical history, allergy history and patient home medications list prior to surgery/procedure/anesthetic and documented any changes. Performed airway and anesthesia risk assessments. Anesthesia Type Anesthesia Type: MAC History Source History Obtained from:: Patient and Chart Anesthesia Focused Assessment* Temperature: 97.9 F Pulse Rate: 97 Blood Pressure: 143/81 Respiratory Rate: 16 Pulse Ox: 91 Oxygen Delivery Method: Nasal Cannula Oxygen Flow Rate (L/min): 4 Fraction of Inspired Oxygen (FIO2): 56 Airway Assessment Mouth opens: >3 cm Mallampati Score: II Teeth Condition: Dentures (Patient has full upper and lower dentures. They are out.) Neck Range of motion (ROM): Full ROM Focused Labs Anesthesia Preop lab: CBC WBC 25.7 K/mm3 (4.4-11.0) H 12/12/24 03:43 12/12/24 RBC 5.15 M/mm3 (4.2-5.4) 12/12/24 03:43 12/12/24 Hgb 13.7 g/dL (12.0-15.0) 12/12/24 03:43 12/12/24 Hct 44.4 % (37-47) 12/12/24 03:43 12/12/24 Plt Count 345 K/mm3 (150-450) 12/12/24 03:43 12/12/24 CHEMISTRY Potassium 4.1 mmol/L (3.3-5.1) 12/12/24 03:43 12/12/24 Sodium 137 mmol/L (133-145) 12/12/24 03:43 12/12/24 Magnesium 2.0 mg/dL (1.5-2.2) 12/05/24 05:28 12/05/24 Phosphorus 6.2 mg/dL (2.7-4.5) H 12/05/24 05:28 12/05/24 BUN 25 mg/dL (4-19) H 12/12/24 03:43 12/12/24 Creatinine 0.77 mg/dL (0.70-1.20) 12/12/24 03:43 12/12/24 Glucose 80 mg/dL (70-99) 12/12/24 03:43 12/12/24 POC Glucose 141 mg/dL (70-110) H 04/19/19 23:12 04/19/19 COAG PT 14.5 SECONDS (11.7-14.9) 01/02/24 19:33 01/02/24 Pre-Assessment Diagnosis/Proposed Procedure Planned Operative Procedure(s): Esophagogastroduodenoscopy with possible dilation. Anesthesia History Anesthesia History - manager security and safety: Anesthesia History - manager security and safety Hx Hospitalization Yes 08/12/20 11:23 Any Problems With Anesthesia No 06/12/21 02:55 Cholinesterase deficiency No 06/12/21 02:55 You/Your Family Experience No 06/12/21 02:55 fever (hyperthermia) with Relationship Recent Exposure to Contagious No 06/12/21 02:55 Disease Does patient have nerve No 06/12/21 02:55 stimulator Patient instructed to have device shut off --Does patient have Pacemaker or ICD? When Was Last Pacemaker Check QUESTION #4 FULL TEXT: You/Your Family Experience fever (hyperthermia) with Anesthesia Last Oral Intake Last Oral intake: Last Oral Intake NPO since Meds taken in AM with sips of water? Meds patient instructed to take am of surgery Any additional information?: Yes NPO since: 00:00 Meds taken in AM with sips of water?: Yes PONV PONV - manager security and safety: PONV - manager security and safety Female HX of Motion Sickness HX of N/V After Surgery Non-Smoker Duration of Surgery greater than 60 minutes Number of Risk Factors PONV Score Height & Weight Height & Weight: Anesthesia: Height & Weight Height 5 ft 3 in 12/11/24 13:34 Weight: 60.7 kg 12/12/24 05:02 Body Mass Index (BMI) 23.7 12/12/24 05:02 Respiratory Assessment Respiratory Assessment - manager security and safety: Respiratory Tract Infection Hx - manager security and safety Hx Respiratory Tract Infection No 06/12/21 02:55 STOP Sleep Apnea STOP Sleep Apnea - manager security and safety: STOP Sleep Apnea - manager security and safety Hx Hypertension Yes 12/04/24 20:21 Hx Sleep Apnea Yes 12/04/24 20:21 CPAP No 12/04/24 20:21 BIPAP No 12/04/24 20:21 Do you snore loudly (louder than talking or can be heard Do you often feel tired/ fatigued/ sleepy during daytime? Has anyone observed you stop breathing during sleep? STOP Results Positive 12/04/24 20:21 QUESTION #5 FULL TEXT : Do you snore loudly (louder than talking or can be heard through closed doors)? Tobacco Use History Tobacco Use History - manager security and safety: Tobacco Use History - manager security and safety Tobacco Use Cigarettes 01/22/21 20:43 Smoking Status Heavy Smoker (>10/day) 12/06/24 05:11 Hx Tobacco Use Yes 12/04/24 20:21 Years Smoking Packs Smoked per Day Smoking Cessation Date was within the last 15 years Hx Smoking Cessation Date Hx Smoking Cessation No 12/04/24 20:21 Counseling Hematologic Medial History Hematologic Hx - manager security and safety: Hematologic Medical Hx - holter technician Hx of Blood Transfusion No 12/04/24 20:21 Hx of Transfusion in last 3 No 12/04/24 20:21 Months Date of Last Transfusion (if within last 3 months) Ever experience any problems No 12/04/24 20:21 with transfusion(s)? Specify any problems Hx of Preganancy in last 3 No 12/04/24 20:21 Months Nurse Filling Out Transfusion MGROVE 12/04/24 20:21 & Questions: Date: 12/04/24 12/04/24 20:21 Time: 20:12/04/24 20:21 Patient unable to answer at this time (ie. confused, unrespo /Reproduction History /Reproductive History - manager security and safety: /Reproductive Hx- manager security and safety Hx Now Gestational Age (in weeks): EDC: Hx Hx Para Hx Section SAB No 06/12/21 02:55 Active Medications Active Medications: Current Medications Generic Name Dose Route Start Last Admin Trade Name Freq PRN Reason Stop Dose Admin Acetaminophen 650 mg 12/04/24 20:21 12/05/24 10:04 Acetaminophen 325 Mg Tablet PO 650 mg Q6H PRN PRN Administration Pain 1-10 Or Fever>100.7 Albuterol Sulfate 2.5 mg 12/04/24 20:21 Albuterol 2.5 Mg/3 Ml Vial.Neb. INHALATION Q2H PRN PRN SHORTNESS OF BREATH Albuterol/Ipratropium 3 ml 12/04/24 20:21 12/12/24 07:36 Ipratropium/Albuterol Sulfate 3 Ml Ampul.Neb INHALATION 3 ml Q4H.RT DACIA Administration Amlodipine Besylate 5 mg 12/05/24 10:00 12/12/24 07:43 Amlodipine 5 Mg Tablet PO 5 mg DAILY DACIA Administration Protocol Aripiprazole 5 mg 12/05/24 10:00 12/12/24 07:42 Aripiprazole 5 Mg Tablet PO 5 mg DAILY DACIA Administration Protocol Atorvastatin Calcium 10 mg 12/04/24 22:00 12/11/24 23:09 Atorvastatin Calcium 10 Mg Tablet PO 10 mg QHS DACIA Administration Cholecalciferol 50 mcg 12/05/24 10:00 12/12/24 07:41 Cholecalciferol (Vit D3) 25 Mcg Tablet (1,000 Units) PO 50 mcg DAILY DACIA Administration Enoxaparin Sodium 40 mg 12/05/24 10:00 12/12/24 07:43 Enoxaparin 40 Mg/0.4 Ml Syringe SC 40 mg DAILY DACIA Administration Guaifenesin 1,200 mg 12/04/24 22:00 12/12/24 07:41 Guaifenesin 1,200 Mg Tablet PO 1,200 mg BID DACIA Administration Hydrochlorothiazide 12.5 mg 12/05/24 08:00 12/12/24 07:41 Hydrochlorothiazide 12.5mg PO 12.5 mg BREAKFAST DACIA Administration Protocol Hydroxyzine Pamoate 25 mg 12/04/24 22:00 12/11/24 23:14 Hydroxyzine Grace 25 Mg Capsule PO 25 mg QHS DACIA Administration Sodium Chloride 100 mls @ 15 mls/hr 12/04/24 20:22 IV .Q6H40M PRN Saline Flush Sodium Chloride 100 mls @ 15 mls/hr 12/04/24 20:22 IV .Q6H40M PRN Additional IVPB Infusion Lisinopril 10 mg 12/05/24 10:00 12/09/24 14:21 Lisinopril 10 Mg Tablet PO 10 mg DAILY DACIA Administration Protocol Lorazepam 0.5 mg 12/04/24 22:00 12/12/24 07:43 Lorazepam 0.5 Mg Tablet PO 0.5 mg BID DACIA Administration Melatonin 3 mg 12/04/24 20:21 Melatonin 3 Mg Tablet PO QHS PRN PRN INSOMNIA Metoprolol Tartrate 25 mg 12/04/24 22:00 12/12/24 07:41 Metoprolol Tartrate 25 Mg Tablet PO 25 mg BID DACIA Administration Protocol Mirtazapine 45 mg 12/04/24 22:00 12/11/24 23:14 Mirtazapine 15 Mg Tablet PO 45 mg QHS DACIA Administration Nicotine 14 mg 12/05/24 10:00 12/12/24 07:42 Nicotine 14 Mg Patch TD 14 mg DAILY DACIA Administration Nystatin 500,000 unit 12/04/24 22:00 12/12/24 07:44 Nystatin 500,000 Unit/5 Ml Udc PO 500,000 unit 4X/DAY DACIA Administration Ondansetron HCl 4 mg 12/04/24 20:21 Ondansetron 4 Mg/2 Ml Vial IV Q8H PRN PRN NAUSEA/VOMITING Pantoprazole Sodium 40 mg 12/05/24 10:00 12/12/24 07:40 Pantoprazole Sodium 40 Mg Tablet PO 40 mg DAILY DACIA Administration Prednisone 40 mg 12/11/24 08:00 12/12/24 07:55 Prednisone 20 Mg Tablet PO 12/16/24 08:01 40 mg BREAKFAST DACIA Administration Senna/Docusate Sodium 2 tablet 12/04/24 20:21 Senna/Docusate Sodium 1 Tablet PO BID PRN PRN Constipation Sodium Chloride 10 - 40 ml 12/04/24 20:22 12/10/24 21:37 0.9% Saline Lock 10 Ml Syringe IV 10 ml UD PRN Administration SALINE FLUSH Throat Lozenges 1 lozenge 12/04/24 20:21 Benzocaine/Menthol 1 Lozenge MUCOUS MEM Q2H PRN PRN SORE THROAT Tramadol HCl 100 mg 12/05/24 12:46 12/12/24 07:40 Tramadol 50 Mg Tablet PO 100 mg Q6H PRN PRN Administration Pain Score 1-10 PFSH Medical History Pancreatic stones HLD (hyperlipidemia) History of alcohol abuse Pneumonia Acute on chronic hypoxic respiratory failure Stage 3 severe COPD by GOLD classification Asthma COPD (chronic obstructive pulmonary disease) Arthritis History of back problems Anxiety and depression Chronic pancreatitis HPV (human papilloma virus) infection Anemia Tobacco abuse GERD (gastroesophageal reflux disease) Benign hypertension Home Medications ?Medication ?Instructions ?Recorded ?Last Taken ?Type cholecalciferol (vitamin D3) 50 50 mcg PO DAILY SUPPLEMENT 12/29/18 10/31/22 History mcg (2,000 unit) capsule pantoprazole 40 mg tablet,delayed 40 mg PO DAILY GERD 08/12/20 10/31/22 History release aripiprazole 5 mg tablet (Abilify) 5 mg PO DAILY mood 01/22/21 10/31/22 History hydroxyzine pamoate 25 mg capsule 25 mg PO QHS SLEEP 06/12/21 01/01/24 History mirtazapine 45 mg tablet 45 mg PO QHS sleep 01/16/22 01/01/24 History simvastatin 20 mg tablet 20 mg PO QHS cholesterol 11/01/22 01/01/24 History hydrochlorothiazide 12.5 mg capsule 12.5 mg PO BREAKFAST 30 days #30 01/05/24 Unknown Rx caps metoprolol tartrate 25 mg tablet 25 mg PO BID 30 days #60 tabs 01/05/24 Unknown Rx amlodipine 10 mg tablet 5 mg PO DAILY 01/26/24 Unknown History ipratropium 0.5 mg-albuterol 3 mg 3 ml inhalation Q4H PRN shortness 01/26/24 Unknown Rx (2.5 mg base)/3 mL nebulization of breath or wheezing #90 mL soln lisinopril 10 mg tablet 10 mg PO QDAY 01/26/24 Unknown History albuterol sulfate 90 mcg/actuation 2 puff inhalation Q4H PRN 05/11/24 Unknown Rx aerosol inhaler (Ventolin HFA) shortness of breath or wheezing #18 grams lorazepam 0.5 mg tablet 0.5 mg PO BID 05/11/24 Unknown History fluticasone fur. 200 mcg-umeclid 1 inh inhalation DAILY #3 ea 08/29/24 Unknown Rx 62.5 mcg-vilant 25 mcg inhalat.powder (Trelegy Ellipta) Allergy/AdvReac Type Severity Reaction Status Date / Time clindamycin Allergy Intermediate Hives Verified 12/04/24 15:55 Penicillins Allergy Hives Verified 12/04/24 15:55 sulfamethoxazole (From Allergy Other Verified 12/04/24 15:55 Bactrim) trimethoprim (From Bactrim) Allergy Other Verified 12/04/24 15:55 hydrocodone (From [place]) AdvReac Itching Verified 12/04/24 15:55 Family History Mother Diabetes Hypertension Heart disease High cholesterol Arthritis Thyroid disorder Brother Hypertension Sister Cancer cervical Thyroid disorder Father Kidney disease Daughter Thyroid disorder Family History no significant family his Surgical History History of tubal ligation History of colonoscopy History of appendectomy Surgical History no surgical history Social History household members: family Smoking Status: Heavy Smoker (>10/day) Tobacco: How many years used: 30 second hand exposure: Yes alcohol intake: former details: Sober since 2020. substance use type: does not use caffeine: Yes Review of Systems (Anesthesia) ROS Narrative System reviewed and no additional complaints, except as documented.
--- NOTE | 2024-12-12 12:37 | PCM.PN.BLA ---
Progress Note Patient has been n.p.o. for upper endoscopy today regarding her dysphagia. Physical Exam Const alert, oriented x3, no apparent distress and healthy appearing General Appearance: cooperative GI normal to inspection, nondistended, normoactive bowel sounds, soft to palpation, non-tender and non-distended Percussion: normal to percussion Rectal Exam: deferred Assessment & Plan Assessment/Plan (1) COPD with acute exacerbation: (2) Acute hypoxic respiratory failure: PLAN: Plan Oropharyngeal dysphagia from unknown cause at this time. She did have some mild esophageal dysphagia 2. She will undergo an upper endoscopy to evaluate upper GI tract. She is on modified diet as per speech therapy. She was explained alternatives, risk and benefits include not withstanding bleeding, infection, sepsis, perforation, need for charge and . She has an ASA of 3. Visit Charges Inpatient E&M: 81697 Subs Hosp L2
--- NOTE | 2024-12-12 13:07 | OP.EGD_ITS ---
Patient Name: Gracie Banuelos Procedure Date: 12/12/2024 12:40 PM Date of : 1965 Age: 59 Procedure: Upper GI endoscopy Indications: Dysphagia Providers: Marshal Segura DO Medicines: Monitored Anesthesia Care Patient Profile: This is a 59 year old female. Refer to note in patient chart for documentation of history and physical. Patient has symptoms of dysphagia with both liquids and solids. Complications: No immediate complications. Procedure: Pre-Anesthesia Assessment: - Prior to the procedure, a History and Physical was performed, and patient medications and allergies were reviewed. The patient is competent. The risks and benefits of the procedure and the sedation options and risks were discussed with the patient. All questions were answered and informed consent was obtained. Patient identification and proposed procedure were verified by the physician in the pre-procedure area. Mental Status Examination: alert and oriented. Airway Examination: normal oropharyngeal airway and neck mobility. Respiratory Examination: clear to auscultation. CV Examination: normal. Prophylactic Antibiotics: The patient does not require prophylactic antibiotics. Prior Anticoagulants: The patient has taken no anticoagulant or antiplatelet agents. ASA Grade Assessment: II - A patient with mild systemic disease. After reviewing the risks and benefits, the patient was deemed in satisfactory condition to undergo the procedure. The anesthesia plan was to use monitored anesthesia care (MAC). Immediately prior to administration of medications, the patient was re-assessed for adequacy to receive sedatives. The heart rate, respiratory rate, oxygen saturations, blood pressure, adequacy of pulmonary ventilation, and response to care were monitored throughout the procedure. The physical status of the patient was re-assessed after the procedure. After obtaining informed consent, the endoscope was passed under direct vision. Throughout the procedure, the patient's blood pressure, pulse, and oxygen saturations were monitored continuously. The Endoscope was introduced through the mouth, and advanced to the second part of duodenum. The upper GI endoscopy was accomplished without difficulty. The patient tolerated the procedure well. Scope In: 12:52:58 PM Scope Out: 12:57:22 PM Total Procedure Duration Time 0 hours 4 minutes 24 seconds Findings: {blood in the back of the mouth}. One benign-appearing, intrinsic moderate stenosis was found 21 to 24 cm from the incisors. This stenosis measured 3 mm (inner diameter) x 4 cm (in length). The stenosis was traversed. A guidewire was placed and the scope was withdrawn. Dilation was performed with a Savary dilator with no resistance at 51 Fr. The dilation site was examined and showed moderate mucosal disruption. Estimated blood loss was minimal. The entire examined stomach was normal. No gross lesions were noted in the first portion of the duodenum. Impression: - {blood in the back of the mouth}. - Benign-appearing esophageal stenosis. Dilated. - Normal stomach. - No gross lesions in the first portion of the duodenum. - No specimens collected. Recommendation: - Discharge patient to home. - Resume previous diet. - Continue present medications. Procedure Code(s): --- Professional --- 67749, Esophagogastroduodenoscopy, flexible, transoral; with insertion of guide wire followed by passage of dilator(s) through esophagus over guide wire CPT copyright 2021 [employer]. All rights reserved. The codes documented in this report are preliminary and upon adjunct psychology faculty member review may be revised to meet current compliance requirements. Marshal Segura DO 12/12/2024 1:07:14 PM This report has been signed electronically. Number of Addenda: 0 Note Initiated On: 12/12/2024 12:40 PM
--- NOTE | 2024-12-12 13:07 | OP.CCLET_ITS ---
12/12/2024 Annmarie Hay [address] [place] [address] Re : Upper GI endoscopy procedure for Gracie Banuelos Dear Dr. Hay This procedure was performed on Thursday, December 12, 2024. My impressions and recommendations are as follows: Impressions : - blood in the back of the mouth. - Benign-appearing esophageal stenosis. Dilated. - Normal stomach. - No gross lesions in the first portion of the duodenum. - No specimens collected. Recommendations : - Discharge patient to home. - Resume previous diet. - Continue present medications. My findings are described in the full procedure note, which is enclosed. If I can be of further assistance, please feel free to contact me at . Sincerely, Marshal Segura, 12/12/2024 1:07:14 PM This report has been signed electronically.
--- NOTE | 2024-12-12 13:07 | PCM.POST.ANE ---
Anesthesia: Postop Eval I Current Vital Signs Temperature: 97.7 F Pulse Rate: 78 Blood Pressure: 96/49 Respiratory Rate: 20 Pulse Ox: 94 Oxygen Delivery Method: Nasal Cannula Oxygen Flow Rate (L/min): 2 Assessment Airway patent: Yes Spontaneous unlabored respirations: Yes Mental status: Awake and Calm nausea: No Vomiting: No Anesthesia Complication: No Fluid Hydration Crystalloid volume administer (ml): 30 Total IV fluid infused: 30 Progress Note Anesthesia document: Postop Eval 1 completed: Yes
--- NOTE | 2024-12-12 15:47 | DCINST_ITS ---
Discharge Instructions Diet Discharge Diet: Low fat / Low cholesterol DC O2, CPAP, BIPAP needs Home O2 Discharge instructions: Yes Type of respiratory needs?: Oxygen Oxygen frequency: Continuous Continuous oxygen liters per minute: 4 Dressing / Incision Discharge Activity: Return to Normal Activity Weight Bearing Status: Weight bearing as tolerated Dressing / Incision Call your doctor if you observe: Fever of 101 or Higher, Shortness of breath, Dizziness, Swelling in the ankles, Chest pain and Increased palpitations (irregular heartbeat) Follow Up Care Test Results: Test results from this visit will be discussed in further detail at your follow- up appointment, if applicable. Discharge Plan Admission Admit Date/Time: 12/04/24 18:03 Primary Reason for Your Visit: COPD exacerbation, dysphagia Attending Provider: Anastacia Bonilla Primary Care Provider: Annmarie Hay Consulting Providers: Aleta Aguayo; Yrn Kahn Instructions Patient Instructions: Discharge Instructions: COPD Discharge Orders/Prescriptions Prescriptions: New prednisone 20 mg Tablet 40 mg PO BREAKFAST 3 Days Qty: 6 0RF Continued mirtazapine 45 mg tablet 45 mg PO QHS ipratropium-albuterol 0.5 mg-3 mg(2.5 mg base)/3 mL solution for nebulization 3 ml inhalation Q4H PRN (Reason: shortness of breath or wheezing) Qty: 90 0RF Rx Instructions: until breathing returns to target peak flow/parameters amlodipine 10 mg tablet 5 mg PO DAILY Rx Instructions: Hold for SBP less than 130 mmHg lisinopril 10 mg tablet 10 mg PO QDAY lorazepam 0.5 mg tablet 0.5 mg PO BID albuterol sulfate [Ventolin HFA] 90 mcg/actuation HFA aerosol inhaler 2 puff INHALATION Q4H PRN (Reason: shortness of breath or wheezing) Qty: 18 11RF cholecalciferol (vitamin D3) 2,000 UNIT capsule 50 mcg PO DAILY pantoprazole 40 MG tablet 40 mg PO DAILY aripiprazole [Abilify] 5 mg Tablet 5 mg PO DAILY hydroxyzine pamoate 25 mg Capsule 25 mg PO QHS simvastatin 20 mg tablet 20 mg PO QHS hydrochlorothiazide 12.5 mg Capsule 12.5 mg PO BREAKFAST 30 Days Qty: 30 2RF Rx Instructions: Hold for SBP less than 130 mmHg metoprolol tartrate 25 mg Tablet 25 mg PO BID 30 Days Qty: 60 0RF Rx Instructions: Hold for heart less than 50 or systolic blood pressure less than 100 mmHg. Trelegy Ellipta 200-62.5-25 mcg blister with device 1 inh inhalation DAILY Qty: 3 3RF Referrals / Follow Up: Annmarie Hay MD [Primary Care Provider] - Within 1 Week Disposition Disposition (needs filled in before D/C Order can be placed): Home, Self Care
--- NOTE | 2024-12-12 15:54 | DS.PCM_ITS ---
Providers Date of Admission: 12/04/24 Date of Discharge: 12/12/24 Primary Care Physician: Dr. Annmarie Hay MD Consultations 12/05/24 09:19 Consult: Bpm Architect / Pulmonary Medicine Routine Consulting Provider: Intensivists/Pulmonary Med Reason for Consult: respiratory failure EMERGENT Consult: No Notified: Yes Date Notified: 12/05/24 Time Notified: 09:19 Method of Notification: Text 12/09/24 17:42 Consult: Gastroenterology Routine Consulting Provider: [facility] Reason for Consult: dysphagia EMERGENT Consult: No Notified: Yes Date Notified: 12/09/24 Time Notified: 17:42 Method of Notification: Text Reason For Visit: ACUTE HYPOXIC RESP FAILURE; SECONDA TO COPD EXACER Diagnosis Discharge Diagnosis (1) COPD with acute exacerbation: Status: Chronic Code(s): J44.1 - Chronic obstructive pulmonary disease with (acute) exacerbation (2) Acute hypoxic respiratory failure: Status: Acute Code(s): J96.01 - Acute respiratory failure with hypoxia Plan #Acute on chronic hypoxic respiratory failure due to COPD exacerbation * On breathing treatment with bronchodilators. * still remains on 4L of oxygen by nasal canula * Titrate oxygen to maintain saturation above 90%. Breathing treatments bronchodilators. * Of note CTA of the chest on admission showed no evidence of PE. * 2D echo showed normal left ventricular systolic function and EF of 70%. Respiratory panel was also negative. * now on PO prednisone * #Chronic abdominal pain * On tramadol. Had a pancreatic block injection which does not seem to have helped. Will follow-up with pain management on outpatient basis. #Leucocytosis: wbc is 21.2. Likely due to steroids. Will monitor for now. #Oropharyngeal dysphagia * Speech therapy on board. * Modified barium swallow on 12/08/2024 showed mild to moderate oropharyngeal dysphagia * On modified diet as per speech therapy. * gastroenterology also consulted for evaluation. Per Dr Segura today, for EGD tomorrow * #Hypertension: On amlodipine and hydrochlorothiazide as well as lisinopril #Chronic anxiety: On Ativan as needed DVT prophylaxis: lovenox Medications at Discharge Home Medications cholecalciferol (vitamin D3) 50 mcg (2,000 unit) capsule 50 mcg PO DAILY SUPPLEMENT 12/29/18 pantoprazole 40 mg tablet,delayed release 40 mg PO DAILY GERD 08/12/20 aripiprazole 5 mg tablet (Abilify) 5 mg PO DAILY mood 01/22/21 hydroxyzine pamoate 25 mg capsule 25 mg PO QHS SLEEP 06/12/21 mirtazapine 45 mg tablet 45 mg PO QHS sleep 01/16/22 simvastatin 20 mg tablet 20 mg PO QHS cholesterol 11/01/22 hydrochlorothiazide 12.5 mg capsule 12.5 mg PO BREAKFAST 30 days #30 caps 01/05/24 metoprolol tartrate 25 mg tablet 25 mg PO BID 30 days #60 tabs 01/05/24 amlodipine 10 mg tablet 5 mg PO DAILY 01/26/24 ipratropium 0.5 mg-albuterol 3 mg (2.5 mg base)/3 mL nebulization soln 3 ml inhalation Q4H PRN shortness of breath or wheezing #90 mL 01/26/24 lisinopril 10 mg tablet 10 mg PO QDAY 01/26/24 albuterol sulfate 90 mcg/actuation aerosol inhaler (Ventolin HFA) 2 puff inhalation Q4H PRN shortness of breath or wheezing #18 grams 05/11/24 lorazepam 0.5 mg tablet 0.5 mg PO BID 05/11/24 fluticasone fur. 200 mcg-umeclid 62.5 mcg-vilant 25 mcg inhalat.powder (Trelegy Ellipta) 1 inh inhalation DAILY #3 ea 08/29/24 prednisone 20 mg tablet 40 mg (2 x 20 mg) PO BREAKFAST 3 days #6 tabs 12/12/24 Hospital Course Operations None Procedures 2-D Echocardiogram Summary of Care Provided Minutes Spent on Discharge: 45 Hospital Course: Patient is a 59-year-old female with past medical history as outlined was admitted to the ED on 12/04/2024 with a complaint of shortness of breath mainly with exertion. He had a history of end-stage COPD and was on 2 to 3 L of supplemental oxygen at home. She also had a history of chronic abdominal pain due to chronic pancreatitis. She admitted to associated wheezing also. On admission she was tachycardic and tachypneic. COVID, influenza and RSV were negative. CT of the chest showed no evidence of PE and showed a 3 mm right lower lobe lung nodule. She was admitted to the PCU and managed for acute on chronic hypoxic respiratory failure due to COPD exacerbation. She was placed on IV Solu-Medrol and breathing treatments with bronchodilators. Pulmonology was consulted. She did have 2D echo which showed normal ventricular solid function and EF of 70% with the respiratory panel being negative as stated. Hospital course was complicated by dysphagia and so gastroenterology was consulted. She had EGD on 12/12/2024 which showed blood in the back of the mouth and benign appearing esophageal stenosis which was dilated as well as normal stomach and no gross lesions in the first portion of the duodenum. No specimens were collected. Patient had walking pulse ox which showed that she required 4 L of oxygen with ambulation. She remained stable and was discharged home on 12/12/2024. She is to follow-up with her primary care doctor and with pulmonology within 1 to 2 weeks. Patient seen and examined prior to discharge. She had no active complaints. She felt much better. Review of systems otherwise negative. Labs and vitals reviewed. Medication reviewed and reconciled. Physical Exam Const alert, oriented x3 and no apparent distress Constitutional Narrative: on 4L of oxygen by nasal canula. General Appearance: cooperative, comfortable, well kempt and well developed Orientation / Consciousness: awake, oriented to person, oriented to place and oriented to time Exam Limitations: no limitations HEENT normocephalic, head/scalp atraumatic, hearing grossly normal bilaterally, moist oral mucous membranes and oropharynx normal Mouth: oral and palatal mucosa normal Eyes PERRL, EOMs intact bilaterally and conjunctivae normal Neck no lymphadenopathy, supple, no JVD, thyroid normal and no carotid bruits General: trachea midline Lymph Lymphatic: no lymphadenopathy noted and no lymphedema noted Resp Resp Narrative: mildly diminished breath sounds bibasally, no wheezes or crackles. On 3L of oxygen. Auscultation: Negative for rales, rhonchi or wheezes Cardio regular rate, regular rhythm, S1 normal heart sound, S2 normal heart sound, no murmurs, no rub and no gallops GI normal to inspection, nondistended, normoactive bowel sounds, soft to palpation, non-tender and non-distended Extremity normal to inspection, full ROM, normal capillary refill, no clubbing, cyanosis or edema and no calf tenderness General Extremity: no tenderness to palpation of joints or extremities Skin no rashes or lesions noted General Skin Exam: no breakdown Neuro oriented x3, CN's II-XII intact bilaterally, moves all extremities, no focal motor deficits and no sensory deficits noted Sensorium / Orientation: awake and alert Speech: speech normal Motor Exam: strength 5/5 throughout and general weakness Psych thought process normal, cooperative and affect normal Appearance: appropriate Weight / BMI Weight Weight: 133 lb 13.129 oz Body Mass Index (BMI) 23.7 ABG / Lab / Microbiology Data 12/12/24 03:43 12/12/24 03:43 Laboratory: Laboratory Results - last 24 hr 12/12/24 03:43: WBC 25.7 H, RBC 5.15, Hgb 13.7, Hct 44.4, MCV 86.2, MCH 26.6 L, MCHC 30.9 L, RDW Std Deviation 46.5 H, RDW Coeff of Min 14.6, Plt Count 345, MPV 10.1, Neut % (Auto) Not Reportable, Absolute Neuts (auto) 17.2 H, Absolute Lymphs (auto) 4.36, Total Counted 100, Neutrophils % (Manual) 65, Band Neutrophils % 2, Lymphocytes % (Manual) 17 L, Monocytes % (Manual) 5, Metamyelocytes % 1, Myelocytes % 7 H, Differential Comment SCANNED, Diff Path Review January, Sodium 137, Potassium 4.1, Chloride 95 L, Carbon Dioxide 34.4 H , Anion Gap 8, BUN 25 H, Creatinine 0.77, Estim Creat Clear Calc 63.47, Est GFR (MDRD) Non-Af 87, BUN/Creatinine Ratio 32.0 H, Glucose 80, Calcium 8.9 Microbiology: Microbiology 12/10/24 21:20 Sputum, Expectorated/Coughed Gram Stain - Final 12/07/24 14:40 Mucosa - Nose SARS-CoV-2, Influenza & RSV (PCR) - Final 12/04/24 21:23 Mucosa - Nasopharyngeal Respiratory Panel (PCR) - Final 12/04/24 16:22 Mucosa - Nose SARS-CoV-2, Influenza & RSV (PCR) - Final D/C Instructions Discharge Diet: Low fat / Low cholesterol Discharge Activity: Return to Normal Activity Weight Bearing Status: Weight bearing as tolerated Call your doctor if you observe: Fever of 101 or Higher, Shortness of breath, Dizziness, Swelling in the ankles, Chest pain and Increased palpitations (irregular heartbeat) DC O2, CPAP, BIPAP Needs PSN CPAP & BiPAP: BiPAP & CPAP Settings per PSN Mode AIRVO 12/07/24 06:30 Bipap Delivery Device Nasal Pillows 12/06/24 07:23 BiPAP Expiratory Pressure 12 12/05/24 07:44 BiPAP Rate 14 12/05/24 07:44 Fraction of Inspired Oxygen ( 56 12/12/24 12:07 FIO2) Total Flow Rate 45 12/07/24 06:30 Home O2 Discharge instructions: Yes Type of respiratory needs?: Oxygen Oxygen frequency: Continuous Continuous oxygen liters per minute: 4 DC home with Oxygen: Yes Home O2 MD Review: I have reviewed the oxygen testing, and the patient qualifies for home oxygen equipment and portability. The patient is mobile in the home and the community. Meaningful Use Info Meaningful Use Meaningful Use Diagnoses (Choose all that apply): None applicable Ischemic Stroke Statin Dosing Therapy Reference: STATIN DOSE THERAPY REFERENCE: * Patients > 75 years receive moderate or high dose statin therapy. * Patients 75 years or YOUNGER should receive HIGH intensity statin dose unless contraindicated. You will be required to document reason for non-treatment if statin daily dose does not meet guidelines. HIGH DOSE STATIN THERAPY DAILY Atorvastatin > than or = to 40 mg Rosuvastatin > than or = to 20 mg Amlodipine + Atorvastatin > than or = to 2.5/40 mg Ezetimibe + Simvastatin 10/80 mg Simvastatin 80mg Discharge Plan Admission Admit Date/Time: 12/04/24 18:03 Primary Reason for Your Visit: COPD exacerbation, dysphagia Attending Provider: Anastacia Bonilla Primary Care Provider: Annmarie Hay Consulting Providers: Aleta Aguayo; Yrn Kahn Instructions Patient Instructions: Discharge Instructions: COPD Discharge Orders/Prescriptions Prescriptions: New prednisone 20 mg Tablet 40 mg PO BREAKFAST 3 Days Qty: 6 0RF Continued mirtazapine 45 mg tablet 45 mg PO QHS ipratropium-albuterol 0.5 mg-3 mg(2.5 mg base)/3 mL solution for nebulization 3 ml inhalation Q4H PRN (Reason: shortness of breath or wheezing) Qty: 90 0RF Rx Instructions: until breathing returns to target peak flow/parameters amlodipine 10 mg tablet 5 mg PO DAILY Rx Instructions: Hold for SBP less than 130 mmHg lisinopril 10 mg tablet 10 mg PO QDAY lorazepam 0.5 mg tablet 0.5 mg PO BID albuterol sulfate [Ventolin HFA] 90 mcg/actuation HFA aerosol inhaler 2 puff INHALATION Q4H PRN (Reason: shortness of breath or wheezing) Qty: 18 11RF cholecalciferol (vitamin D3) 2,000 UNIT capsule 50 mcg PO DAILY pantoprazole 40 MG tablet 40 mg PO DAILY aripiprazole [Abilify] 5 mg Tablet 5 mg PO DAILY hydroxyzine pamoate 25 mg Capsule 25 mg PO QHS simvastatin 20 mg tablet 20 mg PO QHS hydrochlorothiazide 12.5 mg Capsule 12.5 mg PO BREAKFAST 30 Days Qty: 30 2RF Rx Instructions: Hold for SBP less than 130 mmHg metoprolol tartrate 25 mg Tablet 25 mg PO BID 30 Days Qty: 60 0RF Rx Instructions: Hold for heart less than 50 or systolic blood pressure less than 100 mmHg. Trelegy Ellipta 200-62.5-25 mcg blister with device 1 inh inhalation DAILY Qty: 3 3RF Referrals / Follow Up: Annmarie Hay MD [Primary Care Provider] - Within 1 Week Disposition Disposition (needs filled in before D/C Order can be placed): Home, Self Care Charges/Coding Visit Charges Inpatient E&M: 80852 Disch Hosp >30min
--- NOTE | 2024-12-12 16:03 | CASEMGMT ---
SARWAT CM noted DC order in. Pt requiring additional O2 from current order, sent script to hospitalist for O2 and OP ST. Provided Pt with copy of script for OP O2 and sent updated O2 order to [facility] [place]. Pt denies additional DC needs at this time.
--- NOTE | 2024-12-12 17:51 | POSTOPAN2_ITS ---
Anesthesia Postop Eval I Sum Postop Eval Completion status Anesthesia document: Postop Eval 1 completed: Yes Anesthesia Postop Eval I Summary Anesthesia Postop Eval I Summary: Anesthesia Postop Eval I: Assessment Summary Airway patent Yes 12/12/24 13:08 MEDICAL INSTRUMENT [email or web address] Spontaneous unlabored Yes 12/12/24 13:08 MEDICAL INSTRUMENT [email or web address] respirations Mental status Awake,Calm 12/12/24 13:08 MEDICAL INSTRUMENT [email or web address] nausea No 12/12/24 13:08 MEDICAL INSTRUMENT [email or web address] Vomiting No 12/12/24 13:08 MEDICAL INSTRUMENT [email or web address] Anesthesia Postop Eval I: Fluid Summary Crystalloid volume administer 30 12/12/24 13:08 MEDICAL INSTRUMENT [email or web address] (ml) Colloids volume administered ( ml) Blood Product volume administered (ml) Total IV fluid infused 30 12/12/24 13:08 MEDICAL INSTRUMENT [email or web address] Anesthesia Postop Eval I: Summary Notes Anesthesia Complication No 12/12/24 13:08 MEDICAL INSTRUMENT [email or web address] Anesthesia Complication Comment: Post-operative progress note Anesthesia: Postop Eval II Evaluation Mental status: Awake and Calm Pain Level: 1 nausea: No Vomiting: No Complications Anesthesia Complication: No
--- NOTE | 2024-12-12 17:51 | PCM.POSTANE2 ---
Anesthesia Postop Eval I Sum Postop Eval Completion status Anesthesia document: Postop Eval 1 completed: Yes Anesthesia Postop Eval I Summary Anesthesia Postop Eval I Summary: Anesthesia Postop Eval I: Assessment Summary Airway patent Yes 12/12/24 13:08 CURRICULUM [email or web address] Spontaneous unlabored Yes 12/12/24 13:08 CURRICULUM ASSISTANT [email or web address] respirations Mental status Awake,Calm 12/12/24 13:08 CURRICULUM ASSISTANT [email or web address] nausea No 12/12/24 13:08 CURRICULUM ASSISTANT [email or web address] Vomiting No 12/12/24 13:08 CURRICULUM [email or web address] [email or web address] Anesthesia Postop Eval I: Fluid Summary Crystalloid volume administer 30 12/12/24 13:08 CURRICULUM ASSISTANT [email or web address] (ml) Colloids volume administered ( ml) Blood Product volume administered (ml) Total IV fluid infused 30 12/12/24 13:08 CURRICULUM ASSISTANT [email or web address] Anesthesia Postop Eval I: Summary Notes Anesthesia Complication No 12/12/24 13:08 CURRICULUM ASSISTANT [email or web address] Anesthesia Complication Comment: Post-operative progress note Anesthesia: Postop Eval II Evaluation Mental status: Awake and Calm Pain Level: 1 nausea: No Vomiting: No Complications Anesthesia Complication: No
== END 2024-12-12 18:25 | disposition home or self-care (01) | DRG 133 ==
LOC: ED 17:45 → PCU 18:29
PROVIDERS: Internal Medicine; Internal Medicine Critical Care Medicine; Internal Medicine Gastroenterology; Admitting Provider Internal Medicine; Emergency Provider Emergency Medicine; PCP Internal Medicine; Visit Provider Student in an Organized Health Care Education/Training Program
PROC: 0DJ08ZZ Inspection of Upper Intestinal Tract, Via Natural or Artificial Opening Endoscopic (ICD-10-PCS; CPT 43235; principal; 2024-12-12 12:40)
DX: J96.21 Acute and chronic respiratory failure with hypoxia (principal); E87.29 Other acidosis; Z99.81 Dependence on supplemental oxygen; J44.1 Chronic obstructive pulmonary disease with (acute) exacerbation; F31.9 Bipolar disorder, unspecified; I10 Essential (primary) hypertension; I70.8 Atherosclerosis of other arteries; K86.1 Other chronic pancreatitis; K22.2 Esophageal obstruction; K21.9 Gastro-esophageal reflux disease without esophagitis; E78.5 Hyperlipidemia, unspecified; J06.9 Acute upper respiratory infection, unspecified; F41.9 Anxiety disorder, unspecified; F17.210 Nicotine dependence, cigarettes, uncomplicated; R13.12 Dysphagia, oropharyngeal phase; R91.1 Solitary pulmonary nodule; G89.29 Other chronic pain; Z79.51 Long term (current) use of inhaled steroids; Z79.891 Long term (current) use of opiate analgesic; R10.9 Unspecified abdominal pain; Z98.51 Tubal ligation status
CPT/HCPCS: 36415; 36600; 71046; 71275; 74230; 80048; 80053; 82803; 83690; 83735; 83880; 84100; 84145; 85025; 87070; 87205; 87631; 87633; 92507; 92526; 92610; 92611; 93005; 93306; 94002; 94003; 94640; 94660; 94668; 94762; 99252; 99285; Q9967; A4216; C1769; G0463; J1940; J2405

== ENCOUNTER 2024-12-24 19:38 | Emergency (ER) | payer MEDICAID, SELFPAY ==
[2024-12-24 19:39] VITALS: BP 103/80; PULSE 129; RESP 36; TEMP 36.8; O2SAT 88; BMI 24.3
--- NOTE | 2024-12-24 19:58 | EDS_ITS ---
HPI History of Present Illness Chief Complaint: Lower Extremity Injury Informant: patient Narrative Narrative: Presents worsening gout pain right ankle starting yesterday. She ate red meat yesterday. Prediabetic. No fevers. In addition reports worsening abdominal pain for the past few weeks with chronic pancreatitis. States she has pancreatic stones, she describes a celiac block performed [facility] [place] December 01. She is followed by gastroenterology Dr. Zavala states has upcoming pancreatic stent to be placed January 01. States she has pain management appointment January 05 for the first time. She has been using Tylenol. She is tolerated morphine. Reports recent hospitalization for COPD discharge a week ago chronic now 5 L oxygen increased with activities. She is down to 7 cigarettes a day. She saw her board layer yesterday. Denies any worsening dyspnea or cough. Reports chronic exertional dyspnea with her COPD. Prior similar symptoms: Yes [facility] Medical History Stenosis of left subclavian artery Pulmonary nodule Acute hypoxic respiratory failure Chronic pancreatitis Pancreatic stones HLD (hyperlipidemia) History of alcohol abuse Pneumonia Acute on chronic hypoxic respiratory failure Stage 3 severe COPD by GOLD classification Asthma COPD (chronic obstructive pulmonary disease) Arthritis History of back problems Anxiety and depression Chronic pancreatitis HPV (human papilloma virus) infection Anemia Tobacco abuse GERD (gastroesophageal reflux disease) Benign hypertension Home Medications ?Medication ?Instructions ?Recorded ?Last Taken ?Type cholecalciferol (vitamin D3) 50 50 mcg PO DAILY SUPPLE MENT 12/29/18 10/31/22 History mcg (2,000 unit) capsule aripiprazole 5 mg tablet (Abilify) 5 mg PO DAILY mood 01/22/21 10/31/22 History mirtazapine 45 mg tablet 45 mg PO QHS sleep 01/16/22 01/01/24 History metoprolol tartrate 25 mg tablet 25 mg PO BID 30 days #60 tabs 01/05/24 Unknown Rx amlodipine 10 mg tablet 5 mg PO DAILY 01/26/24 Unkno wn History lisinopril 10 mg tablet 10 mg PO QDAY 01/26/24 Unkno wn History albuterol sulfate 90 mcg/actuation 2 puff inhalation Q 4H PRN 05/11/24 Unknown Rx aerosol inhaler (Ventolin HFA) shortness of breath or wheezing #18 grams tramadol 100 mg tablet 100 mg PO Q6H PRN pain 5 day s #20 12/12/24 Unknown Rx tabs nicotine 14 mg/24 hr daily 1 patch transdermal ONCE #2 8 ea 12/14/24 Unknown Rx transdermal patch guaifenesin 100 mg/5 mL oral liquid 200 mg (10 mL) PO Q4H PRN 12/16/24 Unknown Rx congestion #473 mL budesonide 160 mcg-glycopyr 9 2 inh inhalation BID #10 .7 grams 12/23/24 Unknown Rx mcg-formot 4.8 mcg/actuation HFA inhaler (Breztri Aerosphere) hydroxyzine HCl 25 mg tablet 25 mg PO TID 12/23/24 Unk nown History ipratropium 0.5 mg-albuterol 3 mg 3 ml inhalation Q4H PRN shortness 12/23/24 Unknown Rx (2.5 mg base)/3 mL nebulization of breath or wheezing #90 mL soln meloxicam 7.5 mg tablet 7.5 mg PO QDAY 12/23/24 Unkn own History ondansetron 4 mg disintegrating 4 mg PO Q6 PRN nausea/ vomiting 12/23/24 Unknown History tablet spacer #1 ea 12/23/24 Unknown Rx prednisone 20 mg tablet 40 mg (2 x 20 mg) PO DAILY # 8 12/24/24 Unknown Rx TABLETS tramadol 50 mg tablet 50 mg PO Q6H PRN pain #12 ta bs 12/24/24 Unknown Rx Allergy/AdvReac Type Severity Reaction Status Date / Time clindamycin Allergy Intermediate Hives Verified 12/24/24 19:39 Penicillins Allergy Hives Verified 12/24/24 19:39 sulfamethoxazole (From Allergy Other Verified 12/24/24 19:39 Bactrim) trimethoprim (From Bactrim) Allergy Other Verified 12/24/24 19:39 hydrocodone (From [place]) AdvReac Itching Verified 12/24/24 19:39 Family History Mother Diabetes Hypertension Heart disease High cholesterol Arthritis Thyroid disorder Brother Hypertension Sister Cancer cervical Thyroid disorder Father Kidney disease Daughter Thyroid disorder Surgical History History of tubal ligation History of colonoscopy History of appendectomy Social History household members: family Smoking Status: Current some day smoker tobacco type: cigarettes Tobacco: How many years used: 30 second hand exposure: Yes alcohol intake: former details: Sober since 2020. substance use type: does not use caffeine: Yes ROS ROS ED Constitutional Constitutional ED: Denies chills, fever(s) or sweats ENT ENT ED: Denies sore throat Cardiovascular Cardiovascular: Denies chest pain, leg edema, palpitations or racing heartbeat Respiratory/Chest Respiratory/Chest: Denies cough, dyspnea or dyspnea on exertion Gastrointestinal Gastrointestinal: Denies abdominal pain, diarrhea, nausea or vomiting Genitourinary Genitourinary ED: Denies dysuria, hematuria or urinary frequency Musculoskeletal Musculoskeletal: Reports extremity pain; Denies back pain or neck pain Integumentary Denies rash or wounds Neurologic Neurologic: Denies headache(s), paresthesias or weakness EXAM Physical Exam Const Vital Signs: 12/24/24 19:39 12/24/24 20:12 12/24/24 20:46 Temperature 98.3 F Temperature Source Oral Pulse Rate 129 H 114 H Respiratory Rate 36 H 20 H Blood Pressure 103/80 157/91 H Blood Pressure Mean 87 113 Pulse Ox 88 98 Oxygen Delivery Method Nasal Cannula Nasal Cannula Nasal Cannula Oxygen Flow Rate (L/min) 5 5 5 12/24/24 21:38 Temperature 97.8 F Temperature Source Pulse Rate 98 Respiratory Rate 24 H Blood Pressure 148/89 H Blood Pressure Mean 108 Pulse Ox 98 Oxygen Delivery Method Oxygen Flow Rate (L/min) Positive well nourished and well developed Constitutional Narrative: 5 L nasal cannula no respiratory distress. General Appearance ED: well developed and NAD HEENT Reports moist mucous membranes normocephalic and atraumatic Eyes General Eye ED: Yes normal appearance of both eyes Neck full ROM Chest Wall Chest: Negative for tenderness Resp normal respiratory effort and normal air movement Effort and Inspection: symmetric chest movement; Negative for respiratory distress Cardio regular rhythm and no murmurs Rate: tachycardic Peripheral Pulses: pulses 2+ throughout GI normal to inspection, nondistended, normoactive bowel sounds GI Narrative: Mild mid abdominal tenderness. There is no guarding or rebound. Negative Perez's or McBurney's tenderness. Palpation: Negative for guarding or rebound tenderness present Extremity normal to inspection Extremity Narrative: Right lower extremity mild tenderness around the ankle there is no swelling no redness no warmth. Pulses are intact distally. General Extremety ED: Yes tenderness; Negative for edema General Extremity: Negative for edema Neuro oriented x3 and no sensory deficits noted Sensorium / Orientation: awake and alert Skin no rashes or lesions noted and no wounds MDM MDM MDM Narrative Medical decision making narrative: Interventions / MDM: Differential diagnosis: Gout, chronic pancreatitis, history of COPD with chronic oxygenation Diagnosis considered but do not suspect: No clinical septic joint, My EKG interpretation: N/A Imaging independently reviewed and interpreted by myself: N/A External documents reviewed: N/A Test considered but not ordered:N/A ED course: Presented triage vitals 88% on 5 L. Respiratory rate 36. Pulse 129. Nontoxic no respiratory distress. Will place her on a color television console monitor continue oxygenation. Blood pressure 103/88. Will give gentle fluids, morphine ordered for which she tolerated for her gout pain in her abdominal pain. Will check abdominal labs. There is no clinical septic joint of the ankle. Will start pre dnisone for which she is treated with this for her gout flares. Will reevaluate. Labs stable white count 18 down from 25 recently on steroids. Pain controlled on reevaluation. Will continue prednisone for a gout short course of tramadol for which she is tolerated. OARRS report noted 5 days ago at 6 tabs of tramadol. Outpatient follow-up with her doctors. All questions were answered. Re-evaluation: stable Disposition discussed with patient/family/significant other: Patient and family Case discussed with consulting clinician: N/A This note was generated with Sun-eee dictation software. It may contain incorrect words, spelling, and punctuation that were not noted in checking the note before signing. Lab Data Attestation: I reviewed the patient's lab results. Labs: Laboratory Results - last 24 hr 12/24/24 20:15 WBC 18.2 H RBC 4.02 L Hgb 10.8 L Hct 33.8 L MCV 84.1 MCH 26.9 L MCHC 32.0 RDW Std Deviation 45.1 H RDW Coeff of Min 14.6 Plt Count 396 MPV 9.3 Immature Gran % (Auto) 0.900 Neut % (Auto) 77.2 H Lymph % (Auto) 13.4 L [place] % (Auto) 5.5 Eos % (Auto) 2.3 Baso % (Auto) 0.7 Absolute Neuts (auto) 14.1 H Absolute Lymphs (auto) 2.44 Nucleated RBC % 0 Sodium 137 Potassium 4.1 Chloride 97 L Carbon Dioxide 28.1 Anion Gap 13 BUN 3 L Creatinine 0.77 Estim Creat Clear Calc 63.47 Est GFR (MDRD) Non-Af 88 BUN/Creatinine Ratio 4.2 L Glucose 131 H Calcium 9.3 Total Bilirubin 0.19 Direct Bilirubin 0.09 AST 16 ALT 18 Alkaline Phosphatase 117 H Total Protein 7.1 Albumin 3.4 Globulin 3.7 Lipase 34 Discharge Plan Triage Chief Complaint: Lower Extremity Injury Other Complaint: Abd Pain ED Provider: Mo Velasco Dx/Rx/DC Orders Clinical Impression: Acute gout of ankle, Abdominal pain, COPD (chronic obstructive pulmonary disease), History of pancreatitis Instructions: ED Gout, ED Gout Diet Prescriptions: New prednisone 20 mg tablet 40 mg PO DAILY Qty: 8 0RF tramadol 50 mg tablet 50 mg PO Q6H PRN (Reason: pain) Qty: 12 0RF No Action mirtazapine 45 mg tablet 45 mg PO QHS amlodipine 10 mg tablet 5 mg PO DAILY Rx Instructions: Hold for SBP less than 130 mmHg lisinopril 10 mg tablet 10 mg PO QDAY albuterol sulfate [Ventolin HFA] 90 mcg/actuation HFA aerosol inhaler 2 puff INHALATION Q4H PRN (Reason: shortness of breath or wheezing) Qty: 18 11RF meloxicam 7.5 mg tablet 7.5 mg PO QDAY ondansetron 4 mg tablet,disintegrating 4 mg PO Q6 PRN (Reason: nausea/vomiting) hydroxyzine HCl 25 mg tablet 25 mg PO TID ipratropium-albuterol 0.5 mg-3 mg(2.5 mg base)/3 mL solution for nebulization 3 ml inhalation Q4H PRN (Reason: shortness of breath or wheezing) Qty: 90 0RF Rx Instructions: until breathing returns to target peak flow/parameters Breztri Aerosphere 160-9-4.8 mcg/actuation HFA aerosol inhaler 2 inh inhalation BID Qty: 10.7 6RF (DME) spacer See Rx Instructions .ROUTE .MEDSUPPLY Qty: 1 0RF Rx Instructions: As directed cholecalciferol (vitamin D3) 2,000 UNIT capsule 50 mcg PO DAILY aripiprazole [Abilify] 5 mg Tablet 5 mg PO DAILY metoprolol tartrate 25 mg Tablet 25 mg PO BID 30 Days Qty: 60 0RF Rx Instructions: Hold for heart less than 50 or systolic blood pressure less than 100 mmHg. tramadol 100 mg tablet 100 mg PO Q6H PRN (Reason: pain) 5 Days Qty: 20 0RF nicotine 14 mg/24 hr patch 24 hour 1 patch transdermal ONCE Qty: 28 1RF guaifenesin 100 mg/5 mL liquid 200 mg PO Q4H PRN (Reason: congestion) Qty: 473 0RF Primary Care Provider: Annmarie Hay Referrals: Annmarie Hay MD [Primary Care Provider] - 1-2 Weeks Activity Restrictions/Additional Instructions: Take medications as prescribed. Follow-up with your doctor. Print Language: Ukrainian Disposition Disposition: Home, Self Care Discharge Date/Time: 12/24/24 21:45
[2024-12-24] MEDS: 0.9% Normal Saline (500mL Bag) 500 ML 1000 ML IV (20:12)
[2024-12-24] MEDS: predniSONE 20 MG Tablet 40 MG PO (20:18)
[2024-12-24] MEDS: Morphine 4 MG/ML Syringe IV (20:19)
[2024-12-24 20:25] LABS: Absolute Lymphocyte Count 2.44 X10^3/uL (0.83-4.51); Absolute Neutrophil Count 14.1 X10^3/uL (2.0-7.7); Basophil# 0.12 X10^3/uL; Basophil% 0.7 % (0-1); Eosinophil# 0.41 X10^3/uL; Eosinophils% 2.3 % (0-5); Hematocrit 33.8 % (37-47); Hemoglobin 10.8 g/dL (12.0-15.0); Lymphocyte # 2.44 X10^3/ul (0.83-4.51); Lymphocyte % 13.4 % (19-41); Mean Corpuscular Hgb 26.9 pg (27.0-32.0); Mean Corpuscular Volume 84.1 fL (81-99); Mean Platelet Vol. 9.3 fl (6.2-12.0); Monocyte# 1.01 X10^3/uL; Monocyte% 5.5 % (0-10); NRBC Flagged by Analyzer 0 % (0-5); Neutrophil # 14.05 X10^3/uL (2.7-7.7); Neutrophil % 77.2 % (47-70); Platelet Count 396 K/mm3 (150-450); RBC Distribution Width CV 14.6 % (11.6-14.6); RBC Distribution Width SD 45.1 fl (35.1-43.9); Red Blood Count 4.02 M/mm3 (4.2-5.4); White Blood Count 18.2 K/mm3 (4.4-11.0)
[2024-12-24 20:46] VITALS: BP 157/91; PULSE 114; RESP 20; O2SAT 98
[2024-12-24 20:47] LABS: AST(SGOT) 16 U/L (<=31); Alanine Aminotransfer ALT/SGPT 18 U/L (<=34); Albumin, Serum 3.4 g/dL (3.4-4.8); Alkaline Phosphatase 117 U/L (35-104); Anion Gap 13 (5-15); BUN 3 mg/dL (4-19); BUN/Creat Ratio 4.2 RATIO (10-20); Bilirubin, Direct 0.09 mg/dL (0.00-0.30); Calcium,Total 9.3 mg/dL (7.6-11.0); Carbon Dioxide 28.1 mmol/L (21.0-32.0); Chloride 97 mmol/L (98-108); Creatinine, Serum 0.77 mg/dL (0.70-1.20); EST Glomerular Filtration Rate 88 (>60); Estimated Creatinine Clearance 63.47 ml/min (50-250); Globulin 3.7 g/dL (2.2-4.2); Glucose 131 mg/dL (70-99); Lipase 34 U/L (13-75); Potassium 4.1 mmol/L (3.3-5.1); Protein, Total 7.1 g/dL (5.9-8.4); Sodium Level 137 mmol/L (133-145); Total Bilirubin 0.19 mg/dL (0.00-1.30)
[2024-12-24 21:38] VITALS: BP 148/89; PULSE 98; RESP 24; TEMP 36.6; O2SAT 98
== END 2024-12-24 21:45 | disposition home or self-care (01) ==
PROVIDERS: Emergency Provider Emergency Medicine; PCP Internal Medicine; Visit Provider Emergency Medicine
DX: M10.9 Gout, unspecified (principal); J44.9 Chronic obstructive pulmonary disease, unspecified; R10.9 Unspecified abdominal pain; R73.03 Prediabetes; E78.5 Hyperlipidemia, unspecified; F17.210 Nicotine dependence, cigarettes, uncomplicated; I10 Essential (primary) hypertension; K21.9 Gastro-esophageal reflux disease without esophagitis; Z98.51 Tubal ligation status
CPT/HCPCS: 80048; 80076; 83690; 85025; 96374; 99285; A4216

== ENCOUNTER 2025-01-01 20:27 | Emergency (ER) | payer MEDICAID, SELFPAY ==
[2025-01-01 20:27] VITALS: BP 111/74; PULSE 113; RESP 24; TEMP 36.5; O2SAT 80
[2025-01-01 20:31] VITALS: BP 111/74; PULSE 113; RESP 24; TEMP 36.5; O2SAT 80
--- NOTE | 2025-01-01 20:40 | EKG12_ITS ---
Test Reason : DYSRHYTHMIA Blood Pressure : */* mmHG Vent. Rate : 101 BPM Atrial Rate : 101 BPM P-R Int : 176 ms QRS Dur : 74 ms QT Int : 340 ms P-R-T Axes : 62 76 84 degrees QTcB Int : 440 ms Sinus tachycardia Septal infarct (cited on or before 04-Dec-2024) Abnormal ECG Confirmed by CLIFTON MENENDEZ, COCO ([id number]), film or videotape editor LEONARD BAUTISTA ([id number]) on 01/02/2025 9:16:27 AM Referred By: Leandro Sanchez Confirmed By: COCO LAZO MD
--- NOTE | 2025-01-01 20:42 | EDS_ITS ---
HPI HPI - GI History of Present Illness Chief Complaint: Abd Pain Narrative Narrative: 59-year-old female past medical history of COPD wears 5 L of oxygen, has had problems with pancreatitis/chronic pancreatitis in the past states that over the last few days she has had nausea and epigastric pain. She was post to have surgery on December 27 at [facility], but it was postponed secondary to her line installer trolley stating that she should not have surgery because if she is intubated she would probably have to come out of surgery on a ventilator secondary to very bad COPD. She denies any recent fevers or chills, or cough. She states over the last few days she has been nauseated and has epigastric pain consistent with her previous pancreatitis. She states she is post to get a stent in her pancreas but once again can have it performed. She is post to follow-up with pain management on January 05, 4 days from now. [facility] Medical History Stenosis of left subclavian artery Pulmonary nodule Acute hypoxic respiratory failure Chronic pancreatitis Pancreatic stones HLD (hyperlipidemia) History of alcohol abuse Pneumonia Acute on chronic hypoxic respiratory failure Stage 3 severe COPD by GOLD classification Asthma COPD (chronic obstructive pulmonary disease) Arthritis History of back problems Anxiety and depression Chronic pancreatitis HPV (human papilloma virus) infection Anemia Tobacco abuse GERD (gastroesophageal reflux disease) Benign hypertension Home Medications ?Medication ?Instructions ?Recorded ?Last Taken ?Type cholecalciferol (vitamin D3) 50 50 mcg PO DAILY SUPPLE MENT 12/29/18 10/31/22 History mcg (2,000 unit) capsule aripiprazole 5 mg tablet (Abilify) 5 mg PO DAILY mood 01/22/21 10/31/22 History mirtazapine 45 mg tablet 45 mg PO QHS sleep 01/16/22 01/01/24 History metoprolol tartrate 25 mg tablet 25 mg PO BID 30 days #60 tabs 01/05/24 Unknown Rx amlodipine 10 mg tablet 5 mg PO DAILY 01/26/24 Unkno wn History lisinopril 10 mg tablet 10 mg PO QDAY 01/26/24 Unkno wn History albuterol sulfate 90 mcg/actuation 2 puff inhalation Q 4H PRN 05/11/24 Unknown Rx aerosol inhaler (Ventolin HFA) shortness of breath or wheezing #18 grams tramadol 100 mg tablet 100 mg PO Q6H PRN pain 5 day s #20 12/12/24 Unknown Rx tabs nicotine 14 mg/24 hr daily 1 patch transdermal ONCE #2 8 ea 12/14/24 Unknown Rx transdermal patch guaifenesin 100 mg/5 mL oral liquid 200 mg (10 mL) PO Q4H PRN 12/16/24 Unknown Rx congestion #473 mL budesonide 160 mcg-glycopyr 9 2 inh inhalation BID #10 .7 grams 12/23/24 Unknown Rx mcg-formot 4.8 mcg/actuation HFA inhaler (Breztri Aerosphere) hydroxyzine HCl 25 mg tablet 25 mg PO TID 12/23/24 Unk nown History ipratropium 0.5 mg-albuterol 3 mg 3 ml inhalation Q4H PRN shortness 12/23/24 Unknown Rx (2.5 mg base)/3 mL nebulization of breath or wheezing #90 mL soln meloxicam 7.5 mg tablet 7.5 mg PO QDAY 12/23/24 Unkn own History ondansetron 4 mg disintegrating 4 mg PO Q6 PRN nausea/ vomiting 12/23/24 Unknown History tablet spacer #1 ea 12/23/24 Unknown Rx prednisone 20 mg tablet 40 mg (2 x 20 mg) PO DAILY # 8 12/24/24 Unknown Rx TABLETS tramadol 50 mg tablet 50 mg PO Q6H PRN pain #12 ta bs 12/24/24 Unknown Rx Shower chair #1 ea 12/30/24 Unknown Rx tramadol 50 mg tablet 50 mg PO Q6H PRN pain 3 days #12 01/01/25 Unknown Rx tabs Allergy/AdvReac Type Severity Reaction Status Date / Time clindamycin Allergy Intermediate Hives Verified 01/01/25 20:30 Penicillins Allergy Hives Verified 01/01/25 20:30 sulfamethoxazole (From Allergy Other Verified 01/01/25 20:30 Bactrim) trimethoprim (From Bactrim) Allergy Other Verified 01/01/25 20:30 hydrocodone (From [place]) AdvReac Itching Verified 01/01/25 20:30 Family History Mother Diabetes Hypertension Heart disease High cholesterol Arthritis Thyroid disorder Brother Hypertension Sister Cancer cervical Thyroid disorder Father Kidney disease Daughter Thyroid disorder Surgical History History of tubal ligation History of colonoscopy History of appendectomy Social History household members: family Smoking Status: Current some day smoker tobacco type: cigarettes Tobacco: How many years used: 30 second hand exposure: Yes alcohol intake: former details: Sober since 2020. substance use type: does not use caffeine: Yes ROS ROS ED ROS Narrative Constitutional: No fever, no chills. Cardiovascular: No chest pain. No palpitations. No pedal edema. Respiratory: No cough, constant shortness of breath. Abdominal: Positive epigastric abdominal pain. Positive nausea. No vomiting. Genitourinary: No dysuria. No hematuria. Musculoskeletal: No myalgias. Right foot pain/gout flare. Neurologic: No headaches. No dizziness. No lightheadedness. EXAM Physical Exam Narrative Exam Narrative: Afebrile. Vital signs noted. Nontoxic-appearing. Cardiovascular examination reveals mild tachycardia. Decreased breath sounds bilateral bases, moving a good amount of air. Speaking in full sentences. Abdomen soft with mild tenderness palpation in the epigastrium but no guarding or rebound. Neurological examination nonfocal and nonlateralizing. Const Vital Signs: 01/01/25 20:27 01/01/25 20:31 01/01/25 21:01 Temperature 97.7 F L 97.7 F L Temperature Source Oral Oral Pulse Rate 113 H 113 H Respiratory Rate 24 H 24 H Blood Pressure 111/74 111/74 Blood Pressure Mean 86 86 Pulse Ox 80 80 Oxygen Delivery Method Nasal Cannula Nasal Cannula Nasal Cannula Oxygen Flow Rate (L/min) 5 5 5 MDM MDM MDM Narrative Medical decision making narrative: Differential diagnosis includes but not limited to pneumonia versus pneumothorax versus chronic COPD/respiratory failure. I reviewed her prior ED visit from a few weeks ago. She has been on prednisone and her white count had been coming down. I reviewed her laboratory work currently, and her white count continues to decrease but is still elevated at 16.5. I feel this is probably secondary to her chronic prednisone use. Hemoglobin normal at 12.0 with platelet count elevated 553 which could be more of an acute phase reactant. Sodium is low at 130 with chloride 91. She was bolused normal saline 1 L intravenously. Glucose 111 with a normal anion gap of 11. LFTs show alk phos slightly elevated at 111 which I think is nonspecific but normal AST and normal ALT. Lipase is normal at 75. I do not feel that she has an acute pancreatitis when compared to prior labs she has had elevation into at least the 500s. EKG obtained and interpreted by myself independently as sinus tachycardia [address] changes. No STEMI. I do not feel that more prednisone is indicated. She states that her gout is acting up and her right foot but she sees her doctor on Thursday. She states that he usually does an x-ray, and then gives her a shot but she does not know what it is. She has already received morphine for analgesia. I do not feel that she has a cellulitis of her foot that requires antibiotics, I do not feel x-ray is indicated. Chest x-ray obtained and interpreted by myself independently shows no evidence of pneumonia or consolidation, no pneumothorax. I reviewed the radiology report which confirms my independent interpretation and comments on bibasilar interstitial markings but no consolidation. At this point in time, as she has a normal lipase and no evidence of an acute pancreatitis, I do feel that she can be discharged to follow-up with pain management as I think she has more of a chronic pain type of picture given that she was just seen here a few weeks ago as well. She states that she was told that as she does not have a pain appointment until the that she was told to come to the emergency department for short course of therapy. She is agreeable to receiving tramadol 50 mg which she has taken previously. She was given 1 dose here prior to discharge and prescription written for 12 tablets. Smoking cessation was discussed with the patient. She will continue her home oxygen use and take her previous medications as directed. Return instructions were reviewed. Patient motivated for discharge. Disposition is discharged home in stable condition. History & Record Review Discussion w/independent historian: Patient Additional record(s) reviewed:: Prior labs Lab Data Attestation: I reviewed the patient's lab results. Labs: Laboratory Results - last 24 hr 01/01/25 20:53 WBC 16.5 H RBC 4.51 Hgb 12.0 Hct 39.1 MCV 86.7 MCH 26.6 L MCHC 30.7 L RDW Std Deviation 47.7 H RDW Coeff of Min 15.2 H Plt Count 553 H MPV 8.9 Neut % (Auto) Not Reportable Sodium 130 L Potassium 4.0 Chloride 91 L Carbon Dioxide 28.7 Anion Gap 11 BUN 7 Creatinine 0.76 Estim Creat Clear Calc 69.70 Est GFR (MDRD) Non-Af 89 BUN/Creatinine Ratio 8.7 L Glucose 111 H Calcium 9.0 Total Bilirubin < 0.15 AST 13 ALT 8 Alkaline Phosphatase 111 H Total Protein 6.9 Albumin 3.7 Globulin 3.2 Albumin/Globulin Ratio 1.2 Lipase 75 Radiography Diagnostic Testing: Clinical Impression(s) from Imaging Studies Chest X-Ray 01/01/25 21:00 IMPRESSION: Prominent bibasilar interstitial markings. No focal consolidation. [facility] Triage Chief Complaint: Abd Pain ED Provider: Leandro Sanchez Dx/Rx/DC Orders Clinical Impression: Chronic pancreatitis, Abdominal pain, Chronic respiratory failure with hypoxia Instructions: ED Abdominal Pain Unkn Cause Fem, ED Chronic Pain Prescriptions: New tramadol 50 mg tablet 50 mg PO Q6H PRN (Reason: pain) 3 Days Qty: 12 0RF No Action mirtazapine 45 mg tablet 45 mg PO QHS amlodipine 10 mg tablet 5 mg PO DAILY Rx Instructions: Hold for SBP less than 130 mmHg lisinopril 10 mg tablet 10 mg PO QDAY albuterol sulfate [Ventolin HFA] 90 mcg/actuation HFA aerosol inhaler 2 puff INHALATION Q4H PRN (Reason: shortness of breath or wheezing) Qty: 18 11RF meloxicam 7.5 mg tablet 7.5 mg PO QDAY ondansetron 4 mg tablet,disintegrating 4 mg PO Q6 PRN (Reason: nausea/vomiting) hydroxyzine HCl 25 mg tablet 25 mg PO TID ipratropium-albuterol 0.5 mg-3 mg(2.5 mg base)/3 mL solution for nebulization 3 ml inhalation Q4H PRN (Reason: shortness of breath or wheezing) Qty: 90 0RF Rx Instructions: until breathing returns to target peak flow/parameters Breztri Aerosphere 160-9-4.8 mcg/actuation HFA aerosol inhaler 2 inh inhalation BID Qty: 10.7 6RF (DME) spacer See Rx Instructions .ROUTE .MEDSUPPLY Qty: 1 0RF Rx Instructions: As directed cholecalciferol (vitamin D3) 2,000 UNIT capsule 50 mcg PO DAILY aripiprazole [Abilify] 5 mg Tablet 5 mg PO DAILY metoprolol tartrate 25 mg Tablet 25 mg PO BID 30 Days Qty: 60 0RF Rx Instructions: Hold for heart less than 50 or systolic blood pressure less than 100 mmHg. tramadol 100 mg tablet 100 mg PO Q6H PRN (Reason: pain) 5 Days Qty: 20 0RF prednisone 20 mg tablet 40 mg PO DAILY Qty: 8 0RF tramadol 50 mg tablet 50 mg PO Q6H PRN (Reason: pain) Qty: 12 0RF nicotine 14 mg/24 hr patch 24 hour 1 patch transdermal ONCE Qty: 28 1RF guaifenesin 100 mg/5 mL liquid 200 mg PO Q4H PRN (Reason: congestion) Qty: 473 0RF (DME) Shower chair See Rx Instructions .Route .MEDSUPPLY Qty: 1 0RF Rx Instructions: As directed Primary Care Provider: Annmarie Hay Referrals: Annmarie Hay MD [Primary Care Provider] - 1-2 Days if not improving Activity Restrictions/Additional Instructions: Follow-up with pain management on January 05 as scheduled. Quit smoking. Return with fever, increased pain, new or worsening symptoms. Print Language: Chadian Disposition Disposition: Home, Self Care
[2025-01-01] MEDS: Ondansetron 4 MG/2 ML Vial IV (20:50)
[2025-01-01] MEDS: Morphine 4 MG/ML Syringe IV (20:50)
[2025-01-01 20:52] VITALS: BMI 24.7
--- NOTE | 2025-01-01 21:00 | RAD_ITS ---
PROCEDURE: CHEST 1 VIEW (PORTABLE) 01/01/2025 REASON FOR EXAM: SHORTNESS OF BREATH TECHNIQUE: Frontal view of the chest. COMPARISON: Chest radiograph dated 12/04/2024 FINDINGS: Hardware: None Heart: Stable in size. Lungs: Prominent bibasilar interstitial markings. No pneumothorax. Bones: The bones are unremarkable. Other: RAD/Chest 1 View (Portable) IMPRESSION: Prominent bibasilar interstitial markings. No focal consolidation. Reading Location: [facility]
[2025-01-01 21:09] LABS: Hematocrit 39.1 % (37-47); Mean Corp Hgb Conc 30.7 g/dL (32-36); Mean Corpuscular Hgb 26.6 pg (27.0-32.0); Mean Corpuscular Volume 86.7 fL (81-99); Mean Platelet Vol. 8.9 fl (6.2-12.0); POSITIVE COUNT YES; POSITIVE MORPHOLOGY YES; Platelet Count 553 K/mm3 (150-450); RBC Distribution Width CV 15.2 % (11.6-14.6); RBC Distribution Width SD 47.7 fl (35.1-43.9); Red Blood Count 4.51 M/mm3 (4.2-5.4); White Blood Count 16.5 K/mm3 (4.4-11.0)
[2025-01-01 21:12] LABS: Differential Indicated MANUAL DIFF
[2025-01-01 21:28] LABS: Lipase 75 U/L (13-75)
[2025-01-01 21:35] LABS: ALB/GLOB Ratio 1.2 RATIO (0.9-2.4); AST(SGOT) 13 U/L (<=31); Alanine Aminotransfer ALT/SGPT 8 U/L (<=34); Albumin, Serum 3.7 g/dL (3.4-4.8); Alkaline Phosphatase 111 U/L (35-104); Anion Gap 11 (5-15); BUN 7 mg/dL (4-19); BUN/Creat Ratio 8.7 RATIO (10-20); Carbon Dioxide 28.7 mmol/L (21.0-32.0); Chloride 91 mmol/L (98-108); Creatinine, Serum 0.76 mg/dL (0.70-1.20); EST Glomerular Filtration Rate 89 (>60); Globulin 3.2 g/dL (2.2-4.2); Glucose 111 mg/dL (70-99); Protein, Total 6.9 g/dL (5.9-8.4); Sodium Level 130 mmol/L (133-145); Total Bilirubin < 0.15 mg/dL (0.00-1.30)
[2025-01-01 21:58] LABS: Basophil 1 % (0-1); Eosinophil 6 % (0-5); Lymphocyte 24 % (19-41); Metamyelocyte 7 % (0-1); Monocyte 7 % (0-10); Myelocyte 1 % (0-0); Neutrophil-Segmented 54 % (47-70); Total Cells Counted 100 (MANUAL DIFF)
[2025-01-01 22:00] LABS: Absolute Neutrophil Count 8.9 X10^3/uL (2.0-7.7)
[2025-01-01 22:02] LABS: Anisocytosis 1+; Microcytosis 1+
[2025-01-01] MEDS: traMADol 50 MG Tablet PO (22:11)
[2025-01-01 22:15] VITALS: BP 104/70; PULSE 108; RESP 24; TEMP 36.6; O2SAT 96
== END 2025-01-01 22:16 | disposition home or self-care (01) ==
PROVIDERS: Emergency Provider Emergency Medicine; PCP Internal Medicine; Referring Provider Emergency Medicine; Visit Provider Emergency Medicine
DX: K86.1 Other chronic pancreatitis (principal); J44.9 Chronic obstructive pulmonary disease, unspecified; F17.210 Nicotine dependence, cigarettes, uncomplicated
CPT/HCPCS: 71045; 80053; 83690; 85025; 93005; 96374; 96375; 99283; A4216; J2405

== ENCOUNTER 2025-01-27 10:13 | Emergency (ER) | payer MEDICAID, SELFPAY ==
[2025-01-27] VITALS (7 sets, daily range): BP systolic 125–186; BP diastolic 67–85; PULSE 90–100; RESP 17–33; TEMP 36.6–37.2; O2SAT 94–97; BMI 23.5
--- NOTE | 2025-01-27 10:31 | EKG12_ITS ---
Test Reason : Blood Pressure : */* mmHG Vent. Rate : 89 BPM Atrial Rate : 89 BPM P-R Int : 174 ms QRS Dur : 80 ms QT Int : 358 ms P-R-T Axes : 81 78 87 degrees QTcB Int : 435 ms Normal sinus rhythm Septal infarct , age undetermined Abnormal ECG Confirmed by CLIFTON MENENDEZ, COCO ([id number]), technical editor CATHERINE PIERCE ([id number]) on 01/30/2025 9:55:44 AM Referred By: Confirmed By: COCO LAZO MD
--- NOTE | 2025-01-27 10:34 | ED.VIS.DYS ---
HPI History of Present Illness Chief Complaint: Shortness of Breath Informant: patient Onset/Context/Timing Context: gradual Timing: Continuous Current Severity: Mild Maximum Severity: Mild Associated Symptoms cough, white sputum and other Chest Pain: Positive for None Narrative Narrative: 59-year-old female history of COPD and lung cancer. Chronic pancreatitis and chronic pain. She is on 5 L of oxygen at home. Today felt short of breath said her pulse ox was read and low to mid 70s. She thought it was a problem with her home oxygen. Currently she is feeling better. She has a chronic cough of white sputum that has not changed. Denies any chest pain. No hemoptysis. No history of DVT or PE. No leg pain or swelling. Denies any recent fever or chills. Currently on our oxygen she is like 95% on 5 L and said she is at her baseline. Patient also has chronic pancreatitis and chronic pain from it. PE Risk Factors: Positive for Cancer; Negative for OCP + Smoking + > 35, Prior DVT or PE, Recent immobilization, Recent surgery or Recent travel Prior similar symptoms: Yes Recent Illness/Hospitalization: [facility] Medical History Stenosis of left subclavian artery Pulmonary nodule Acute hypoxic respiratory failure Chronic pancreatitis Pancreatic stones HLD (hyperlipidemia) History of alcohol abuse Pneumonia Acute on chronic hypoxic respiratory failure Stage 3 severe COPD by GOLD classification Asthma COPD (chronic obstructive pulmonary disease) Arthritis History of back problems Anxiety and depression Chronic pancreatitis HPV (human papilloma virus) infection Anemia Tobacco abuse GERD (gastroesophageal reflux disease) Benign hypertension Home Medications ?Medication ?Instructions ?Recorded ?Last Taken ?Type cholecalciferol (vitamin D3) 50 50 mcg PO DAILY SUPPLEMENT 12/29/18 10/31/22 History mcg (2,000 unit) capsule aripiprazole 5 mg tablet (Abilify) 5 mg PO DAILY mood 01/22/21 10/31/22 History mirtazapine 45 mg tablet 45 mg PO QHS sleep 01/16/22 01/01/24 History metoprolol tartrate 25 mg tablet 25 mg PO BID 30 days #60 tabs 01/05/24 Unknown Rx amlodipine 10 mg tablet 5 mg PO DAILY 01/26/24 Unknown History lisinopril 10 mg tablet 10 mg PO QDAY 01/26/24 Unknown History albuterol sulfate 90 mcg/actuation 2 puff inhalation Q4H PRN 05/11/24 Unknown Rx aerosol inhaler (Ventolin HFA) shortness of breath or wheezing #18 grams tramadol 100 mg tablet 100 mg PO Q6H PRN pain 5 days #20 12/12/24 Unknown Rx tabs nicotine 14 mg/24 hr daily 1 patch transdermal ONCE #28 ea 12/14/24 Unknown Rx transdermal patch guaifenesin 100 mg/5 mL oral liquid 200 mg (10 mL) PO Q4H PRN 12/16/24 Unknown Rx congestion #473 mL budesonide 160 mcg-glycopyr 9 2 inh inhalation BID #10.7 grams 12/23/24 Unknown Rx mcg-formot 4.8 mcg/actuation HFA inhaler (Breztri Aerosphere) hydroxyzine HCl 25 mg tablet 25 mg PO TID 12/23/24 Unknown History meloxicam 7.5 mg tablet 7.5 mg PO QDAY 12/23/24 Unknown History ondansetron 4 mg disintegrating 4 mg PO Q6 PRN nausea/vomiting 12/23/24 Unknown History tablet spacer #1 ea 12/23/24 Unknown Rx prednisone 20 mg tablet 40 mg (2 x 20 mg) PO DAILY #8 12/24/24 Unknown Rx TABLETS tramadol 50 mg tablet 50 mg PO Q6H PRN pain #12 tabs 12/24/24 Unknown Rx Shower chair #1 ea 12/30/24 Unknown Rx tramadol 50 mg tablet 50 mg PO Q6H PRN pain 3 days #12 01/01/25 Unknown Rx tabs ipratropium 0.5 mg-albuterol 3 mg 3 ml inhalation Q4H shortness of 01/04/25 Unknown Rx (2.5 mg base)/3 mL nebulization breath or wheezing #360 mL soln prednisone 20 mg tablet 40 mg (2 x 20 mg) PO DAILY 5 days 01/27/25 Unknown Rx #10 tabs Allergy/AdvReac Type Severity Reaction Status Date / Time clindamycin Allergy Intermediate Hives Verified 01/27/25 10:14 Penicillins Allergy Hives Verified 01/27/25 10:14 sulfamethoxazole (From Allergy Other Verified 01/27/25 10:14 Bactrim) trimethoprim (From Bactrim) Allergy Other Verified 01/27/25 10:14 hydrocodone (From [place]) AdvReac Itching Verified 01/27/25 10:14 Family History Mother Diabetes Hypertension Heart disease High cholesterol Arthritis Thyroid disorder Brother Hypertension Sister Cancer cervical Thyroid disorder Father Kidney disease Daughter Thyroid disorder Surgical History History of tubal ligation History of colonoscopy History of appendectomy Social History household members: family Smoking Status: Current some day smoker tobacco type: cigarettes Tobacco: How many years used: 30 second hand exposure: Yes alcohol intake: former details: Sober since 2020. substance use type: does not use caffeine: Yes ROS ROS ED ROS Narrative Shortness of breath. Constitutional Constitutional ED: Denies chills or fever(s) Eyes Eyes: Denies blurry vision ENT ENT ED: Denies ear pain Cardiovascular Cardiovascular: Denies chest pain Respiratory/Chest Respiratory/Chest: Reports cough and dyspnea Gastrointestinal Gastrointestinal: Denies abdominal pain or constipation Genitourinary Genitourinary ED: Denies dysuria or hematuria Musculoskeletal Musculoskeletal: Denies arthralgias Integumentary Denies abscess Neurologic Neurologic: Denies headache(s) Psychiatric Psychiatric: Denies anxiety Endocrine Endocrinology: Denies cold intolerance Hematologic/Lymphatic Hematologic/Lymphatic: Denies easy bleeding, easy bruising or lymphadenopathy Allergic/Immunologic Allergic/Immunologic ED: Denies mouth swelling, tongue swelling or urticaria EXAM Physical Exam Narrative Exam Narrative: 59-year-old female sitting upright in bed. Vital signs are stable. She is afebrile. On 5 L she is 96%. She is in no distress. She said this is her baseline. No one else present in the room. H EENT exam pupils round react light. Moist mucous membranes. Neck nontender no JVD. No lymphadenopathy. Lungs coarse breath sounds only a few scattered wheezes. No rales or rhonchi. Equal symmetrical. Prolonged Tory phase. Respiratory rate is 23. Heart regular rhythm rate about 97 no murmur. Chest wall ribs nontender. Abdomen soft nontender. Moving all 4 extremities. Nontender no edema no cords. Neurologically she is awake alert. Answering questions following commands. She was speaking on the phone to her daughter oriented to room. Back nontender. Const Vital Signs: 01/27/25 10:14 01/27/25 10:14 01/27/25 10:31 Temperature 99 F Temperature Source Temporal Pulse Rate 97 Respiratory Rate 33 H 23 H Respiratory Effort Respiratory Depth Respiratory Pattern Blood Pressure 186/83 H Blood Pressure Mean 117 Pulse Ox 94 96 Oxygen Delivery Method Nasal Cannula Nasal Cannula Nasal Cannula Oxygen Flow Rate (L/min) 5 5 5 01/27/25 10:52 01/27/25 11:04 01/27/25 11:05 Temperature 97.9 F Temperature Source Temporal Pulse Rate 90 93 Respiratory Rate 17 18 Respiratory Effort Short of Breath Pursed Lip Respiratory Depth Shallow Respiratory Pattern Normal Tachypnea Blood Pressure 168/85 H Blood Pressure Mean 112 Pulse Ox 97 Oxygen Delivery Method Nasal Cannula Nasal Cannula Oxygen Flow Rate (L/min) 5 5 01/27/25 11:14 01/27/25 12:00 Temperature 97.8 F Temperature Source Oral Pulse Rate 98 100 Respiratory Rate 18 18 Respiratory Effort Respiratory Depth Respiratory Pattern Blood Pressure 157/68 H 125/67 H Blood Pressure Mean 97 86 Pulse Ox 97 97 Oxygen Delivery Method Nasal Cannula Nasal Cannula Oxygen Flow Rate (L/min) 5 5 Positive well developed; Negative for obese, cachectic, contractures or unkempt General Appearance ED: well developed and NAD; Negative for unkempt, cachectic, contractures or pallor Nutritional Appearance: Negative for cachectic or obese HEENT Reports moist mucous membranes atraumatic Eyes PERRL and EOMs intact bilaterally Neck no lymphadenopathy, supple, no meningeal signs and no JVD Resp normal respiratory effort and No clear to auscultation bilaterally Resp Narrative: Increased respiratory effort but that is the patient's baseline. She has a few expiratory wheezes and prolonged expiratory phase. Auscultation: wheezes; Negative for rales or rhonchi Cardio regular rate, regular rhythm, S1 normal heart sound, S2 normal heart sound and no murmurs Rate: Negative for bradycardia or tachycardic Rhythm: Negative for abnormal rhythm GI non-tender, non-distended and no masses Auscultation: normoactive bowel sounds Palpation: soft; Negative for tender, guarding or rebound tenderness present Back/Spine no CVA tenderness and normal to inspection Extremity normal to inspection General Extremety ED: Negative for edema or tenderness General Extremity: Negative for edema Neuro oriented x3 and CN's II-XII intact bilaterally Sensorium / Orientation: alert, oriented to person, oriented to place and oriented to time; Negative for orientation impaired, confused, lethargic or stuporous Motor Exam: strength 5/5 throughout Psych mental status grossly normal Appearance: Negative for unkempt Attitude: No agitated Mood & Affect: Negative for depressed, anxious or tearful Thought Process: normal thought process Skin no wounds and skin turgor normal General Skin Exam: Negative for jaundice or pallor Lesions: no lesions Rashes: no rashes Trauma: Negative for abrasion or laceration MDM MDM MDM Narrative Medical decision making narrative: 59-year-old female chronic COPD with chronic 5 L oxygen at home. Currently says she is her baseline. She thinks it may have been a problem with her home O2 today. She has a chronic cough of white sputum no change. She denies chest pain. No history of DVT or PE. No leg pain or swelling. No hemoptysis. She has had no fever or chills. Says she feels fine currently.Patient will be treated for COPD exacerbation with DuoNeb, albuterol aerosols. IV Solu-Medrol screening labs and a chest x-ray. She has chronic pain from chronic pancreatitis to be given for morphine for Zofran. Repeat exam around 11:50 AM and again at 12:49 PM. Patient doing well. We discussed admission versus going home. She absolutely does not want to be admitted. She has both an inhaler and nebulizer at home. I will give her a prescription for prednisone as needed. Her oxygen tank company is bringing her out a new unit today and she is comfortable being discharged to home. Clinically I do not think she needs to be admitted. Patient is breathing well. States she feels improved after the aerosol treatments. History & Record Review Discussion w/independent historian: Patient Additional record(s) reviewed:: Prior inpatient record, Prior outpatient record, Prior ED visit and Prior labs Lab Data Attestation: I reviewed the patient's lab results. Lab results narrative: CBC showed an elevated white count of 15.6. H&H 11.5 and 37.5. Platelets 377. Electrolytes are unremarkable gap 11. Normal BUN of 5 creatinine 0.75. Glucose 130. Liver enzymes unremarkable. Lipase 32. Labs: Laboratory Results - last 24 hr 01/27/25 11:00 WBC 15.6 H RBC 4.32 Hgb 11.5 L Hct 37.5 MCV 86.8 MCH 26.6 L MCHC 30.7 L RDW Std Deviation 46.0 H RDW Coeff of Min 14.5 Plt Count 377 MPV 9.8 Immature Gran % (Auto) 0.800 Neut % (Auto) 70.2 H Lymph % (Auto) 16.8 L [place] % (Auto) 5.9 Eos % (Auto) 5.3 H Baso % (Auto) 1.0 Absolute Neuts (auto) 11.0 H Absolute Lymphs (auto) 2.62 Nucleated RBC % 0 Sodium 137 Potassium 4.3 Chloride 98 Carbon Dioxide 27.5 Anion Gap 11 BUN 5 Creatinine 0.75 Estim Creat Clear Calc 65.16 Est GFR (MDRD) Non-Af 90 BUN/Creatinine Ratio 7.1 L Glucose 130 H Calcium 9.2 Total Bilirubin < 0.15 AST 19 ALT 13 Alkaline Phosphatase 108 H Total Protein 7.1 Albumin 4.0 Globulin 3.1 Albumin/Globulin Ratio 1.3 Lipase 32 Radiography Chest X-Ray - ED: 1 View, Read by ED Physician, Heart, Lungs, Mediastinum, Bony Structures, No Acute Disease and Chronic Changes Diagnostic Testing: Clinical Impression(s) from Imaging Studies Chest X-Ray 01/27/25 11:15 IMPRESSION: 1. Emphysema. Slight bibasilar interstitial prominence may be technical or reflective of trace edema versus minimal pneumonia/pneumonitis. 2. Given emphysema, consider outpatient lung cancer screening as below. 3. Additional description as above. The USPSTF recommends annual screening for lung cancer with low-dose computed tomography (LDCT) in adults aged 50 to 80 years who have a 20 pack-year smoking history and currently smoke or have quit within the past 15 years. Reading Location: [facility] Chest x-ray, 2 views, interpreted both by myself and the radiologist. She was crying changes consistent with COPD. Normal cardiac silhouette. No obvious pneumonia. Rhythm Strip Rhythm Strip: Sinus Rhythm Rate: 89 Ectopy: None EKG Initial EKG: Attestation: I personally reviewed and interpreted this EKG as follows: Interpretation: Sinus Rhythm and No Acute Injury Pattern Comments: Normal sinus rhythm rate 89 no acute signs of AK or ischemia. Discharge Plan Triage Chief Complaint: Shortness of Breath ED Provider: Franco Inman Dx/Rx/DC Orders Clinical Impression: Acute dyspnea, COPD exacerbation, On home O2 Instructions: ED COPD Flare Prescriptions: New prednisone 20 mg tablet 40 mg PO DAILY 5 Days Qty: 10 0RF No Action mirtazapine 45 mg tablet 45 mg PO QHS amlodipine 10 mg tablet 5 mg PO DAILY Rx Instructions: Hold for SBP less than 130 mmHg lisinopril 10 mg tablet 10 mg PO QDAY albuterol sulfate [Ventolin HFA] 90 mcg/actuation HFA aerosol inhaler 2 puff INHALATION Q4H PRN (Reason: shortness of breath or wheezing) Qty: 18 11RF meloxicam 7.5 mg tablet 7.5 mg PO QDAY ondansetron 4 mg tablet,disintegrating 4 mg PO Q6 PRN (Reason: nausea/vomiting) hydroxyzine HCl 25 mg tablet 25 mg PO TID Breztri Aerosphere 160-9-4.8 mcg/actuation HFA aerosol inhaler 2 inh inhalation BID Qty: 10.7 6RF (DME) spacer See Rx Instructions .ROUTE .MEDSUPPLY Qty: 1 0RF Rx Instructions: As directed cholecalciferol (vitamin D3) 2,000 UNIT capsule 50 mcg PO DAILY aripiprazole [Abilify] 5 mg Tablet 5 mg PO DAILY metoprolol tartrate 25 mg Tablet 25 mg PO BID 30 Days Qty: 60 0RF Rx Instructions: Hold for heart less than 50 or systolic blood pressure less than 100 mmHg. tramadol 100 mg tablet 100 mg PO Q6H PRN (Reason: pain) 5 Days Qty: 20 0RF prednisone 20 mg tablet 40 mg PO DAILY Qty: 8 0RF tramadol 50 mg tablet 50 mg PO Q6H PRN (Reason: pain) Qty: 12 0RF tramadol 50 mg tablet 50 mg PO Q6H PRN (Reason: pain) 3 Days Qty: 12 0RF nicotine 14 mg/24 hr patch 24 hour 1 patch transdermal ONCE Qty: 28 1RF guaifenesin 100 mg/5 mL liquid 200 mg PO Q4H PRN (Reason: congestion) Qty: 473 0RF (DME) Shower chair See Rx Instructions .Route .MEDSUPPLY Qty: 1 0RF Rx Instructions: As directed ipratropium-albuterol 0.5 mg-3 mg(2.5 mg base)/3 mL solution for nebulization 3 ml inhalation Q4H Qty: 360 11RF Primary Care Provider: Annmarie Hay Referrals: Annmarie Hay MD [Primary Care Provider] - As Needed Activity Restrictions/Additional Instructions: Follow-up with your primary care physician 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 I think this is primarily an oxygen tank issue at home. It could have been a mild exacerbation of your COPD. I did write you a short-term prescription for prednisone as needed. Use your inhalers and your nebulizer as needed. Return if feeling worse. Print Language: Wolof Disposition Disposition: Home, Self Care
[2025-01-27] MEDS: Ipratropium/Albuterol Sulfate 3 ML AMPUL.NEB INHALATION (10:52)
[2025-01-27] MEDS: Albuterol 2.5 MG/3 ML VIAL.NEB. INHALATION (10:52)
[2025-01-27] MEDS: Morphine 4 MG/ML Syringe IV (10:58)
[2025-01-27] MEDS: Ondansetron 4 MG/2 ML Vial IV (10:58)
[2025-01-27] MEDS: MethylPREDNISolone 125 MG/2 ML Vial IV (10:58)
[2025-01-27] MEDS: 0.9% Normal Saline (500mL Bag) 500 ML 999 ML IV (10:58)
--- NOTE | 2025-01-27 11:15 | RAD_ITS ---
PROCEDURE: CHEST PA AND LATERAL, 01/27/2025 REASON FOR EXAM: COPD TECHNIQUE: PA and lateral views of the chest were obtained. COMPARISON: 01/01/2025 FINDINGS: Heart: Unremarkable. Mediastinum: Atherosclerosis. Lungs/pleura: Emphysema. Slight bibasilar interstitial prominence may be technical. No focal consolidation. No pleural effusion or visible pneumothorax. Known nodule better seen on previous CTA 01/02/2024. Bones: Demineralization.. Lines and support devices: None. Other: None. RAD/Chest PA and Lateral IMPRESSION: 1. Emphysema. Slight bibasilar interstitial prominence may be technical or ref lective of trace edema versus minimal pneumonia/pneumonitis. 2. Given emphysema, consider outpatient lung cancer screening as below. 3. Additional description as above. The USPSTF recommends annual screening for lung cancer with low-dose computed t omography (LDCT) in adults aged 50 to 80 years who have a 20 pack-year smoking history and currently smoke or have quit within the past 15 years. Reading Location: [id number]
[2025-01-27 11:21] LABS: Absolute Lymphocyte Count 2.62 X10^3/uL (0.83-4.51); Basophil# 0.16 X10^3/uL; Eosinophil# 0.83 X10^3/uL; Eosinophils% 5.3 % (0-5); Hematocrit 37.5 % (37-47); Hemoglobin 11.5 g/dL (12.0-15.0); Lymphocyte # 2.62 X10^3/ul (0.83-4.51); Lymphocyte % 16.8 % (19-41); Mean Corp Hgb Conc 30.7 g/dL (32-36); Mean Corpuscular Hgb 26.6 pg (27.0-32.0); Mean Corpuscular Volume 86.8 fL (81-99); Mean Platelet Vol. 9.8 fl (6.2-12.0); Monocyte# 0.92 X10^3/uL; Monocyte% 5.9 % (0-10); NRBC Flagged by Analyzer 0 % (0-5); Neutrophil # 10.95 X10^3/uL (2.7-7.7); Neutrophil % 70.2 % (47-70); Platelet Count 377 K/mm3 (150-450); RBC Distribution Width CV 14.5 % (11.6-14.6); Red Blood Count 4.32 M/mm3 (4.2-5.4); White Blood Count 15.6 K/mm3 (4.4-11.0)
[2025-01-27 12:33] LABS: Lipase 32 U/L (13-75)
[2025-01-27 12:34] LABS: ALB/GLOB Ratio 1.3 RATIO (0.9-2.4); AST(SGOT) 19 U/L (<=31); Alanine Aminotransfer ALT/SGPT 13 U/L (<=34); Alkaline Phosphatase 108 U/L (35-104); Anion Gap 11 (5-15); BUN 5 mg/dL (4-19); BUN/Creat Ratio 7.1 RATIO (10-20); Calcium,Total 9.2 mg/dL (7.6-11.0); Carbon Dioxide 27.5 mmol/L (21.0-32.0); Chloride 98 mmol/L (98-108); Creatinine, Serum 0.75 mg/dL (0.70-1.20); EST Glomerular Filtration Rate 90 (>60); Estimated Creatinine Clearance 65.16 ml/min (50-250); Globulin 3.1 g/dL (2.2-4.2); Glucose 130 mg/dL (70-99); Potassium 4.3 mmol/L (3.3-5.1); Protein, Total 7.1 g/dL (5.9-8.4); Sodium Level 137 mmol/L (133-145); Total Bilirubin < 0.15 mg/dL (0.00-1.30)
== END 2025-01-27 12:56 | disposition home or self-care (01) ==
PROVIDERS: Emergency Provider Emergency Medicine; PCP Internal Medicine; Visit Provider Emergency Medicine
DX: R06.00 Dyspnea, unspecified (principal); K86.1 Other chronic pancreatitis; J44.1 Chronic obstructive pulmonary disease with (acute) exacerbation; E78.5 Hyperlipidemia, unspecified; G89.29 Other chronic pain; Z99.81 Dependence on supplemental oxygen; K21.9 Gastro-esophageal reflux disease without esophagitis; F17.210 Nicotine dependence, cigarettes, uncomplicated
CPT/HCPCS: 71046; 80053; 83690; 85025; 93005; 94640; 96361; 96374; 96375; 99284; A4216; J2405

== ENCOUNTER 2025-02-26 13:57 | Emergency (ER) | payer MEDICAID, SELFPAY ==
[2025-02-26 13:57] VITALS: BP 177/130; PULSE 92; RESP 20; TEMP 36.9; O2SAT 90; BMI 23.9
[2025-02-26 14:01] VITALS: RESP 22; O2SAT 92
--- NOTE | 2025-02-26 14:34 | CT_ITS ---
PROCEDURE: ABDOMEN/PELVIS W IV CONT ONLY 02/26/2025 REASON FOR EXAM: PAIN, HX PANCREATITIS TECHNIQUE: Abdomen and pelvis CT with intravenous contrast. Coronal and Sagittal reconstruction series were provided. PATIENT PREPARATION: Per protocol ORAL CONTRAST TYPE: None. CONTRAST: Isovue 370 VOLUME: 100 mL One or more dose reduction techniques were used (e.g., Automated exposure control, adjustment of the mA and/or kV according to patient size, use of iterative reconstruction technique. RADIATION DOSE SUMMARY: CTDlvol: 25 mGy DLP: 617 mGycm COMPARISON: CT chest, abdomen pelvis 11/04/2022. FINDINGS: Lung bases: Emphysema with bibasilar atelectasis/scarring. Mild cardiomegaly with severe mitral annular calcifications. Liver: The liver is normal in size with scattered hypodensities, too small to characterize but likely cysts. The major portal veins are patent. No biliary ductal dilation. Gallbladder: Prior cholecystectomy. Spleen: Normal in size. Pancreas: Numerous calcific densities within the pancreatic head. No peripancreatic stranding or edema. Symmetric enhancement of the pancreatic parenchyma. The pancreatic duct is normal caliber. Adrenals: No adrenal mass. Kidneys: Left renal cyst. No hydronephrosis or nephrolithiasis. Bladder: Distended and unremarkable. Reproductive Organs: Unremarkable. Bowel: The bowel loops are normal in caliber. No ascites or pneumoperitoneum. Prior appendectomy. Lymph nodes: No suspicious lymphadenopathy. Vasculature: Marked calcific plaque of the aortoiliac vessels. Bones: Mild thoracolumbar spondylosis. CT/Abdomen/Pelvis W IV Cont ONLY IMPRESSION: 1. No acute abdominopelvic finding. 2. Stable findings of chronic pancreatitis. Reading Location: [id number]
[2025-02-26] MEDS: Ondansetron 4 MG/2 ML Vial IV (14:42)
[2025-02-26] MEDS: Morphine 4 MG/ML Syringe IV (14:43)
[2025-02-26] MEDS: 0.9% Normal Saline (1000mL) 1,000 ML 999 ML IV (14:43)
[2025-02-26 14:47] LABS: Absolute Neutrophil Count 7.9 X10^3/uL (2.0-7.7); Basophil# 0.12 X10^3/uL; Eosinophil# 0.76 X10^3/uL; Eosinophils% 6.1 % (0-5); Hematocrit 39.8 % (37-47); Hemoglobin 12.1 g/dL (12.0-15.0); Lymphocyte % 20.2 % (19-41); Mean Corp Hgb Conc 30.4 g/dL (32-36); Mean Corpuscular Hgb 26.8 pg (27.0-32.0); Mean Corpuscular Volume 88.2 fL (81-99); Mean Platelet Vol. 10.6 fl (6.2-12.0); Monocyte# 1.02 X10^3/uL; Monocyte% 8.2 % (0-10); NRBC Flagged by Analyzer 0 % (0-5); Neutrophil # 7.87 X10^3/uL (2.7-7.7); Neutrophil % 63.6 % (47-70); Platelet Count 293 K/mm3 (150-450); RBC Distribution Width CV 14.6 % (11.6-14.6); RBC Distribution Width SD 46.9 fl (35.1-43.9); Red Blood Count 4.51 M/mm3 (4.2-5.4); White Blood Count 12.4 K/mm3 (4.4-11.0)
--- NOTE | 2025-02-26 14:50 | ED.VIS.GI ---
HPI <RICARDO Krishnamurthy - Last Filed: 02/26/25 15:54> HPI - GI History of Present Illness Chief Complaint: Abd Pain Narrative Narrative: 59-year-old female with PMH of HTN, HLD, COPD on 5 L at baseline, chronic pancreatitis presents with 3 days of epigastric pain and nausea she states is a flareup of my pancreatitis. She denies fever or chills. No chest pain or increased shortness of breath from her baseline COPD. She has Zofran which has stopped her from vomiting. She is drinking fluids. She has had mild constipation but had a bowel movement this morning. No black or bloody stools. No urinary symptoms. She states she had intermittent bouts of abdominal pain over the last 5 years and was diagnosed with pancreatitis 7 months ago by blood work and ultrasound and primary care. She was a heavy drinker for many years and stopped 6 months ago. She sees a [facility] GI specialist named Dr. Zavala and states she had surgery on 12/01/[address] a pain walker device. She does not know details. She states out for 2 months but now she is having this flareup with no known reason. She is scheduled to have pancreatic stents placed on March 10 at [facility]. She also has a history of cholecystectomy and appendectomy. [facility] <RICARDO Krishnamurthy - Last Filed: 02/26/25 15:54> [facility] Medical History Stenosis of left subclavian artery Pulmonary nodule Acute hypoxic respiratory failure Chronic pancreatitis Pancreatic stones HLD (hyperlipidemia) History of alcohol abuse Pneumonia Acute on chronic hypoxic respiratory failure Stage 3 severe COPD by GOLD classification Asthma COPD (chronic obstructive pulmonary disease) Arthritis History of back problems Anxiety and depression Chronic pancreatitis HPV (human papilloma virus) infection Anemia Tobacco abuse GERD (gastroesophageal reflux disease) Benign hypertension Home Medications ?Medication ?Instructions ?Recorded ?Last Taken ?Type cholecalciferol (vitamin D3) 50 50 mcg PO DAILY SUPPLEMENT 12/29/18 10/31/22 History mcg (2,000 unit) capsule aripiprazole 5 mg tablet (Abilify) 5 mg PO DAILY mood 01/22/21 10/31/22 History mirtazapine 45 mg tablet 45 mg PO QHS sleep 01/16/22 01/01/24 History metoprolol tartrate 25 mg tablet 25 mg PO BID 30 days #60 tabs 01/05/24 Unknown Rx amlodipine 10 mg tablet 5 mg PO DAILY 01/26/24 Unknown History lisinopril 10 mg tablet 10 mg PO QDAY 01/26/24 Unknown History albuterol sulfate 90 mcg/actuation 2 puff inhalation Q4H PRN 05/11/24 Unknown Rx aerosol inhaler (Ventolin HFA) shortness of breath or wheezing #18 grams tramadol 100 mg tablet 100 mg PO Q6H PRN pain 5 days #20 12/12/24 Unknown Rx tabs nicotine 14 mg/24 hr daily 1 patch transdermal ONCE #28 ea 12/14/24 Unknown Rx transdermal patch guaifenesin 100 mg/5 mL oral liquid 200 mg (10 mL) PO Q4H PRN 12/16/24 Unknown Rx congestion #473 mL budesonide 160 mcg-glycopyr 9 2 inh inhalation BID #10.7 grams 12/23/24 Unknown Rx mcg-formot 4.8 mcg/actuation HFA inhaler (Breztri Aerosphere) hydroxyzine HCl 25 mg tablet 25 mg PO TID 12/23/24 Unknown History meloxicam 7.5 mg tablet 7.5 mg PO QDAY 12/23/24 Unknown History ondansetron 4 mg disintegrating 4 mg PO Q6 PRN nausea/vomiting 12/23/24 Unknown History tablet spacer #1 ea 12/23/24 Unknown Rx prednisone 20 mg tablet 40 mg (2 x 20 mg) PO DAILY #8 12/24/24 Unknown Rx TABLETS tramadol 50 mg tablet 50 mg PO Q6H PRN pain #12 tabs 12/24/24 Unknown Rx Shower chair #1 ea 12/30/24 Unknown Rx tramadol 50 mg tablet 50 mg PO Q6H PRN pain 3 days #12 01/01/25 Unknown Rx tabs ipratropium 0.5 mg-albuterol 3 mg 3 ml inhalation Q4H shortness of 01/04/25 Unknown Rx (2.5 mg base)/3 mL nebulization breath or wheezing #360 mL soln prednisone 20 mg tablet 40 mg (2 x 20 mg) PO DAILY 5 days 01/27/25 Unknown Rx #10 tabs gabapentin 300 mg capsule 300 mg PO BID 02/08/25 Unknown History ondansetron 4 mg disintegrating 4 mg PO Q8H PRN PRN Nausea #12 tabs 02/26/25 Unknown Rx tablet tramadol 50 mg tablet 50 mg PO Q6H PRN PRN Pain 3 days 02/26/25 Unknown Rx #12 tabs Allergy/AdvReac Type Severity Reaction Status Date / Time clindamycin Allergy Intermediate Hives Verified 02/26/25 13:57 Penicillins Allergy Hives Verified 02/26/25 13:57 sulfamethoxazole (From Allergy Other Verified 02/26/25 13:57 Bactrim) trimethoprim (From Bactrim) Allergy Other Verified 02/26/25 13:57 hydrocodone (From [place]) AdvReac Itching Verified 02/26/25 13:57 Family History Mother Diabetes Hypertension Heart disease High cholesterol Arthritis Thyroid disorder Brother Hypertension Sister Cancer cervical Thyroid disorder Father Kidney disease Daughter Thyroid disorder Surgical History History of tubal ligation History of colonoscopy History of appendectomy Social History household members: family Smoking Status: Current some day smoker tobacco type: cigarettes Tobacco: How many years used: 30 second hand exposure: Yes alcohol intake: former details: Sober since 2020. substance use type: does not use caffeine: Yes ROS <RICARDO Krishnamurthy - Last Filed: 02/26/25 15:54> ROS ED ROS Narrative Constitutional: Negative for fever, chills, malaise. CVS: Negative for chest pain. Respiratory: Negative for shortness of breath. GI: Positive for abdominal pain, nausea. Negative for vomiting, melena, hematochezia. : Negative for dysuria, hematuria or frequency. EXAM <RICARDO Krishnamurthy - Last Filed: 02/26/25 15:54> Physical Exam Narrative Exam Narrative: CONST: Patient sitting in no acute distress. EYES: Normal inspection. NECK: Normal inspection. RESP: No respiratory distress, on 5 L nasal cannula baseline, expiratory wheezing throughout. CVS: Regular rate and rhythm, no murmur, no gallop. ABD: Abdomen moderately distended, soft, generalized tenderness maximal in the epigastric region. No guarding or rebound. SKIN: Color normal, no rash, warm, dry, intact. EXTREMITIES: Normal appearance, no pedal edema. NEURO: Alert and answering questions appropriately. PSYCH: Normal affect. Const Vital Signs: 02/26/25 13:57 02/26/25 14:01 02/26/25 15:06 Temperature 98.5 F Temperature Source Oral Pulse Rate 92 94 Respiratory Rate 20 H 22 H 22 H Respiratory Pattern Tachypnea Blood Pressure 177/130 H Blood Pressure Mean 145 Pulse Ox 90 92 Oxygen Delivery Method Nasal Cannula Nasal Cannula Oxygen Flow Rate (L/min) 4 5 02/26/25 15:07 02/26/25 15:48 Temperature 98.7 F Temperature Source Pulse Rate 67 Respiratory Rate 12 Respiratory Pattern Blood Pressure 145/78 H Blood Pressure Mean 100 Pulse Ox 93 94 Oxygen Delivery Method Nasal Cannula Oxygen Flow Rate (L/min) 5 <Dr. Franco Inman MD - Last Filed: 02/26/25 15:08> Physical Exam Const Vital Signs: 02/26/25 13:57 02/26/25 14:01 02/26/25 15:06 Temperature 98.5 F Temperature Source Oral Pulse Rate 92 94 Respiratory Rate 20 H 22 H 22 H Respiratory Pattern Tachypnea Blood Pressure 177/130 H Blood Pressure Mean 145 Pulse Ox 90 92 Oxygen Delivery Method Nasal Cannula Nasal Cannula Oxygen Flow Rate (L/min) 4 5 02/26/25 15:07 02/26/25 15:48 Temperature 98.7 F Temperature Source Pulse Rate 67 Respiratory Rate 12 Respiratory Pattern Blood Pressure 145/78 H Blood Pressure Mean 100 Pulse Ox 93 94 Oxygen Delivery Method Nasal Cannula Oxygen Flow Rate (L/min) 5 MDM <RICARDO Krishnamurthy - Last Filed: 02/26/25 15:54> [facility] Narrative Medical decision making narrative: Differential includes but not limited to pancreatitis, constipation, obstruction 59-year-old female with history of chronic pancreatitis, former alcohol abuse presents with 3 days of increased nausea and epigastric pain. She is using Zofran and Tylenol. She is tolerating p.o. intake. Normal bladder bowel movements. She appears well and nontoxic. Vital stable. She is on 5 L of O2 at baseline. Exam notable for mild abdominal distention and epigastric tenderness. No peritoneal signs. WBC is 12.4 with normal hemoglobin and platelets. CMP and lipase are normal. Lipase is 45. It looks like it is never elevated likely from chronic pancreatitis. CT shows no acute process. I suspect this is a flareup of her chronic pancreatitis and she just does not get lipase elevation. She had improvement after IV fluids, morphine, and Zofran. I provided a refill of Zofran and a short course of tramadol as this has worked in the past. I reviewed OARRS and she was last given tramadol on 01/06/[address] Sanchez in ED. she is also on gabapentin but this is chronic prescription. I recommended she follow-up with her [facility] GI specialist. She states GI is referring her to a pain management in [place] which is appropriate. She was discharged in stable condition. I have personally performed a face to face assessment of the patient and have reviewed the EMRE Note. I performed a substantive portion of the visit including all aspects of the following. My ochoa findings include: History is 59-year-old female history of recurrent pancreatitis complaining of upper abdominal pain. Has a upcoming appointment with a GI specialist at [facility] for further evaluation and possible stenting. Exam is [59-year-old female vital signs are stable she is afebrile she does not look septic or toxic. H EENT exam pupils round reactive light. Moist with membranes. Neck nontender no JVD. No lymphadenopathy. Lungs clear to auscultation bilaterally. Heart regular rhythm rate about 90 no murmur. Chest wall ribs nontender. Abdomen soft nondistended normal bowel sounds without peritoneal signs. Mild epigastric right upper quadrant tenderness. No Perez sign. No hernia or mass. Right lower quadrant is nontender. Her pain is improved after she was given IV pain medication. Moving all 4 extremities. Nontender no edema. Neurologically she is awake alert. Answering questions following commands.] Medical Decision Making [59-year-old female with upper abdominal pain with history of pancreatitis screening labs are being obtained. Treated with IV pain meds.] Other additions or changes: [None] Lab Data Labs: Laboratory Results - last 24 hr 02/26/25 14:20 WBC 12.4 H RBC 4.51 Hgb 12.1 Hct 39.8 MCV 88.2 MCH 26.8 L MCHC 30.4 L RDW Std Deviation 46.9 H RDW Coeff of Min 14.6 Plt Count 293 MPV 10.6 Immature Gran % (Auto) 0.900 Neut % (Auto) 63.6 Lymph % (Auto) 20.2 [place] % (Auto) 8.2 Eos % (Auto) 6.1 H Baso % (Auto) 1.0 Absolute Neuts (auto) 7.9 H Absolute Lymphs (auto) 2.50 Nucleated RBC % 0 Sodium 140 Potassium 4.1 Chloride 99 Carbon Dioxide 30.6 Anion Gap 11 BUN 6 Creatinine 0.82 Estim Creat Clear Calc 59.60 Est GFR (MDRD) Non-Af 81 BUN/Creatinine Ratio 7.6 L Glucose 83 Calcium 9.5 Total Bilirubin < 0.15 AST 17 ALT 10 Alkaline Phosphatase 113 H Total Protein 7.2 Albumin 4.1 Globulin 3.1 Albumin/Globulin Ratio 1.3 Lipase 45 Radiography Diagnostic Testing: Clinical Impression(s) from Imaging Studies Abdomen/Pelvis CT 02/26/25 14:34 IMPRESSION: 1. No acute abdominopelvic finding. 2. Stable findings of chronic pancreatitis. Reading Location: [id number] <Dr. Franco Inman MD - Last Filed: 02/26/25 15:08> [facility] MDM Narrative Medical decision making narrative: I have personally performed a face to face assessment of the patient and have reviewed the EMRE Note. I performed a substantive portion of the visit including all aspects of the following. My ochoa findings include: History is 59-year-old female history of recurrent pancreatitis complaining of upper abdominal pain. Has a upcoming appointment with a GI specialist at [facility] for further evaluation and possible stenting. Exam is [59-year-old female vital signs are stable she is afebrile she does not look septic or toxic. H EENT exam pupils round reactive light. Moist with membranes. Neck nontender no JVD. No lymphadenopathy. Lungs clear to auscultation bilaterally. Heart regular rhythm rate about 90 no murmur. Chest wall ribs nontender. Abdomen soft nondistended normal bowel sounds without peritoneal signs. Mild epigastric right upper quadrant tenderness. No Perez sign. No hernia or mass. Right lower quadrant is nontender. Her pain is improved after she was given IV pain medication. Moving all 4 extremities. Nontender no edema. Neurologically she is awake alert. Answering questions following commands.] Medical Decision Making [59-year-old female with upper abdominal pain with history of pancreatitis screening labs are being obtained. Treated with IV pain meds.] Other additions or changes: [None] History & Record Review Discussion w/independent historian: Patient Additional record(s) reviewed:: Prior inpatient record, Prior outpatient record, Prior ED visit and Prior labs Lab Data Attestation: I reviewed the patient's lab results. Lab results narrative: CBC shows a white count of 12.4. H&H 12 and 39. Platelets 293. Labs: Laboratory Results - last 24 hr 02/26/25 14:20 WBC 12.4 H RBC 4.51 Hgb 12.1 Hct 39.8 MCV 88.2 MCH 26.8 L MCHC 30.4 L RDW Std Deviation 46.9 H RDW Coeff of Min 14.6 Plt Count 293 MPV 10.6 Immature Gran % (Auto) 0.900 Neut % (Auto) 63.6 Lymph % (Auto) 20.2 [place] % (Auto) 8.2 Eos % (Auto) 6.1 H Baso % (Auto) 1.0 Absolute Neuts (auto) 7.9 H Absolute Lymphs (auto) 2.50 Nucleated RBC % 0 Sodium 140 Potassium 4.1 Chloride 99 Carbon Dioxide 30.6 Anion Gap 11 BUN 6 Creatinine 0.82 Estim Creat Clear Calc 59.60 Est GFR (MDRD) Non-Af 81 BUN/Creatinine Ratio 7.6 L Glucose 83 Calcium 9.5 Total Bilirubin < 0.15 AST 17 ALT 10 Alkaline Phosphatase 113 H Total Protein 7.2 Albumin 4.1 Globulin 3.1 Albumin/Globulin Ratio 1.3 Lipase 45 Radiography Diagnostic Testing: Clinical Impression(s) from Imaging Studies Abdomen/Pelvis CT 02/26/25 14:34 IMPRESSION: 1. No acute abdominopelvic finding. 2. Stable findings of chronic pancreatitis. Reading Location: [facility] Discharge Plan Triage Chief Complaint: Abd Pain ED Midlevel Provider: Katina Price ED Provider: Franco Inman Dx/Rx/DC Orders Clinical Impression: Acute on chronic pancreatitis, Nausea Instructions: ED Pancreatitis Prescriptions: New ondansetron 4 mg tablet,disintegrating 4 mg PO Q8H PRN PRN (Reason: Nausea) Qty: 12 0RF tramadol 50 mg tablet 50 mg PO Q6H PRN PRN (Reason: Pain) 3 Days Qty: 12 0RF No Action mirtazapine 45 mg tablet 45 mg PO QHS amlodipine 10 mg tablet 5 mg PO DAILY Rx Instructions: Hold for SBP less than 130 mmHg lisinopril 10 mg tablet 10 mg PO QDAY albuterol sulfate [Ventolin HFA] 90 mcg/actuation HFA aerosol inhaler 2 puff INHALATION Q4H PRN (Reason: shortness of breath or wheezing) Qty: 18 11RF gabapentin 300 mg capsule 300 mg PO BID meloxicam 7.5 mg tablet 7.5 mg PO QDAY ondansetron 4 mg tablet,disintegrating 4 mg PO Q6 PRN (Reason: nausea/vomiting) hydroxyzine HCl 25 mg tablet 25 mg PO TID Breztri Aerosphere 160-9-4.8 mcg/actuation HFA aerosol inhaler 2 inh inhalation BID Qty: 10.7 6RF (DME) spacer See Rx Instructions .ROUTE .MEDSUPPLY Qty: 1 0RF Rx Instructions: As directed cholecalciferol (vitamin D3) 2,000 UNIT capsule 50 mcg PO DAILY aripiprazole [Abilify] 5 mg Tablet 5 mg PO DAILY metoprolol tartrate 25 mg Tablet 25 mg PO BID 30 Days Qty: 60 0RF Rx Instructions: Hold for heart less than 50 or systolic blood pressure less than 100 mmHg. tramadol 100 mg tablet 100 mg PO Q6H PRN (Reason: pain) 5 Days Qty: 20 0RF prednisone 20 mg tablet 40 mg PO DAILY Qty: 8 0RF tramadol 50 mg tablet 50 mg PO Q6H PRN (Reason: pain) Qty: 12 0RF tramadol 50 mg tablet 50 mg PO Q6H PRN (Reason: pain) 3 Days Qty: 12 0RF prednisone 20 mg tablet 40 mg PO DAILY 5 Days Qty: 10 0RF nicotine 14 mg/24 hr patch 24 hour 1 patch transdermal ONCE Qty: 28 1RF guaifenesin 100 mg/5 mL liquid 200 mg PO Q4H PRN (Reason: congestion) Qty: 473 0RF (DME) Shower chair See Rx Instructions .Route .MEDSUPPLY Qty: 1 0RF Rx Instructions: As directed ipratropium-albuterol 0.5 mg-3 mg(2.5 mg base)/3 mL solution for nebulization 3 ml inhalation Q4H Qty: 360 11RF Primary Care Provider: Annmarie Hay Referrals: Annmarie Hay MD [Primary Care Provider] - Activity Restrictions/Additional Instructions: Your blood work and CT are normal but I this is a flareup of your chronic pancreatitis. I prescribed more Zofran. Use tramadol as needed for breakthrough pain. Follow-up with your GI specialist. Print Language: Spanish Disposition Disposition: Home, Self Care
[2025-02-26] MEDS: Ipratropium/Albuterol Sulfate 3 ML AMPUL.NEB INHALATION (15:03)
[2025-02-26 15:06] VITALS: PULSE 94; RESP 22
[2025-02-26 15:07] VITALS: O2SAT 93
[2025-02-26 15:20] LABS: Lipase 45 U/L (13-75)
[2025-02-26 15:26] LABS: ALB/GLOB Ratio 1.3 RATIO (0.9-2.4); AST(SGOT) 17 U/L (<=31); Alanine Aminotransfer ALT/SGPT 10 U/L (<=34); Albumin, Serum 4.1 g/dL (3.4-4.8); Alkaline Phosphatase 113 U/L (35-104); Anion Gap 11 (5-15); BUN 6 mg/dL (4-19); BUN/Creat Ratio 7.6 RATIO (10-20); Calcium,Total 9.5 mg/dL (7.6-11.0); Carbon Dioxide 30.6 mmol/L (21.0-32.0); Chloride 99 mmol/L (98-108); Creatinine, Serum 0.82 mg/dL (0.70-1.20); EST Glomerular Filtration Rate 81 (>60); Globulin 3.1 g/dL (2.2-4.2); Glucose 83 mg/dL (70-99); Potassium 4.1 mmol/L (3.3-5.1); Protein, Total 7.2 g/dL (5.9-8.4); Sodium Level 140 mmol/L (133-145); Total Bilirubin < 0.15 mg/dL (0.00-1.30)
[2025-02-26 15:48] VITALS: BP 145/78; PULSE 67; RESP 12; TEMP 37.1; O2SAT 94
--- NOTE | 2025-02-26 15:58 | ED.RN ---
1550: THIS NURSE ENTERED PT ROOM TO D/C THE PT. THE PT. WAS STANDING AT SIDE OF BED WITH NO OXYGEN ON. WHEN PT. WAS ASKED TO REPLACE O2 CANNULA, THEY REPLIED, I HAVE TO GO TO THE BATHROOM RIGHT NOW UNHOOK ME. THIS NURSE ATTEMPTED TO PLACE PORTABLE OXYGEN ON PT. BUT WAS DECLINED DESPITE PT. EDUCATION PROVIDED AT THIS TIME. PT. CONTINUED TO STAND AND REQUESTED IV BE REMOVED. 1554: IV REMOVED AT THIS TIME AND PRESSURE APPLIED. PT STATED I CAN DO THAT AND SHE WALKED AWAY WITHOUT OXYGEN OR HOLDING PRESSURE TO HER IV SITE. THIS NURSE TRIED TO EDUCATE PT. BUT SHE CLOSED THE BATHROOM DOOR. 1555: PT. CALLED FROM BATHROOM, I NEED HELP. PT. WAS FOUND STANDING WITH BLOOD ON FLOOR AND ON ARM. 1556: PT. CLEANED AND NEW DRESSING APPLIED. BLEEDING CONTROLLED WITH PRESSURE FROM THIS NURSE. PT. ROOMED AND REQUESTED OXYGEN BE REPLACED.
== END 2025-02-26 15:59 | disposition home or self-care (01) ==
PROVIDERS: Physician Assistant; Emergency Provider Emergency Medicine; PCP Internal Medicine; Visit Provider Emergency Medicine
DX: K85.90 Acute pancreatitis without necrosis or infection, unspecified (principal); K86.1 Other chronic pancreatitis; J44.9 Chronic obstructive pulmonary disease, unspecified; Z87.891 Personal history of nicotine dependence; E78.5 Hyperlipidemia, unspecified; I10 Essential (primary) hypertension; Z90.49 Acquired absence of other specified parts of digestive tract; Z90.79 Acquired absence of other genital organ(s); R11.0 Nausea
CPT/HCPCS: 74177; 80053; 83690; 85025; 94640; 96361; 96374; 96375; 99283; Q9967; A4216; J2405

== ENCOUNTER 2025-03-13 11:01 | Inpatient (IN) | payer MEDICAID, SELFPAY ==
[2025-03-13] VITALS (12 sets, daily range): BP systolic 103–164; BP diastolic 58–77; PULSE 70–124; RESP 15–22; TEMP 36.6–37.1; O2SAT 87–100; BMI 23.3
--- NOTE | 2025-03-13 12:22 | CT_ITS ---
PROCEDURE: ABDOMEN/PELVIS W IV CONT ONLY 03/13/2025 REASON FOR EXAM: HISTORY OF CHRONIC PANCREATITIS WITH RECENT STENT TECHNIQUE: ABDOMEN/PELVIS W IV CONT ONLY. Coronal and Sagittal reconstruction series were provided. ORAL CONTRAST TYPE: None. CONTRAST: 90 cc [id number] One or more dose reduction techniques were used (e.g., Automated exposure control, adjustment of the mA and/or kV according to patient size, use of iterative reconstruction technique. RADIATION DOSE SUMMARY: DLP: 576.81 mGycm COMPARISON: February 26, [address], November 04, [address] FINDINGS: Lung bases: There is a 0.6 cm solid pulmonary nodule in the right lung base, image 6/118, unchanged from the February 26, 2025 exam, new compared to the November 04, 2022 exam. Liver: Grossly unremarkable Gallbladder: Absent Spleen: Unremarkable Pancreas: There is a stent in the body of the pancreas extending into the head and 2nd-3rd portion of the duodenum, unchanged. There is peripancreatic inflammation at the body and head, extending into the mesenteric root and right and left pericolic gutter, new compared to the prior. There is no organized or drainable collection. Pancreatic calcifications are present which are consistent with chronic pancreatitis, predominantly in the head, similar to the prior. Adrenals: Unremarkable. Kidneys: Unremarkable a 2 cm simple left renal cyst is unchanged. Bladder: Not distended Reproductive Organs: Unremarkable Bowel: The small bowel loops are not distended. Gas and stool is noted in the colon. Appendix: Not demonstrated Lymph nodes: There is no pathologic adenopathy by size criteria. Vasculature: Atherosclerotic calcifications are noted. Peritoneum / Retroperitoneum: There is no free air or free fluid. Bones: There is no acute bony abnormality. CT/Abdomen/Pelvis W IV Cont ONLY IMPRESSION: There is a stent in the body of the pancreas extending into the head and 2nd-3r d portion of the duodenum, unchanged. There is peripancreatic inflammation at the body and head, extending into the mesenteric root and right and left pericolic gutter, new compared to the prior. There is no organized or drainable collection. Pancreati c calcifications are present which are consistent with chronic pancreatitis, predominantly in the head, similar to the prior. There is a 0.6 cm solid pulmonary nodule in the right lung base, image 6/118, u nchanged from the February 26, 2025 exam, new compared to the November 04, [address] correlation is recommended. Critical results were discussed with Dr. Rand by Dr. Grover at the time of dictation. Reading Location: [facility]
--- NOTE | 2025-03-13 12:40 | RAD_ITS ---
PROCEDURE: CHEST PA AND LATERAL 03/13/2025 REASON FOR EXAM: COUGH TECHNIQUE: CHEST PA AND LATERAL COMPARISON: Two-view chest, 01/27/2025 FINDINGS: The lungs are clear. The heart size is normal. There is calcific vascular disease of the thoracic aorta. The pulmonary vascular pattern is normal. There are no bony abnormalities of the chest. RAD/Chest PA and Lateral IMPRESSION: No evidence of acute cardiopulmonary pathology. Reading Location: [id number]
--- NOTE | 2025-03-13 12:43 | EDS_ITS ---
HPI History of Present Illness Chief Complaint: Abd Pain Narrative Narrative: Chief complaint and HPI: Epigastric abdominal pain. 59-year-old female with past medical history of HTN, HLD, COPD on 5 L nasal cannula baseline, chronic pancreatitis with history of cholecystectomy and appendectomy presents for evaluation of epigastric abdominal pain. Patient states she has history of pancreatitis secondary to alcohol abuse. States she has been sober for the past several months. She states she had a recent admission at [facility] in which she was seen by a GI specialist Dr. Garrido. She states she had a pain surgery performed for her pancreatitis recently as well as a pancreatic stent placed on Thursday. Patient states since Thursday she has had worsening epigastric abdominal pain. She denies any fever, chills, shortness of breath, chest pain, diarrhea, constipation, dysuria. Patient states she has a chronic cough. Review of systems: See HPI Medications: As listed on the chart Allergies: As listed on the chart PFSH: Per chart Vital signs: As listed on the chart. Reviewed. Physical exam: Gen: A&O x3, NAD Head: Normocephalic, atraumatic Eyes: No sclera icterus, conjunctiva clear ENT: Moist mucous membranes Neck: Trachea midline, No JVD CV: RRR, no murmurs, no peripheral edema Resp: Lungs CTA BL, no w/r/c, on baseline 5 L nasal NC GI: Abd soft, non-distended, tender to palpation in the epigastrium, voluntary guarding, no rebound or rigidity : No CVA tenderness Musc: Full ROM, no deformity Skin: Warm, dry Neuro: Alert, oriented, grossly intact, sensation intact Psych: Cooperative, appropriate mood and affect [facility] Medical History Stenosis of left subclavian artery Pulmonary nodule Acute hypoxic respiratory failure Chronic pancreatitis Pancreatic stones HLD (hyperlipidemia) History of alcohol abuse Pneumonia Acute on chronic hypoxic respiratory failure Stage 3 severe COPD by GOLD classification Asthma COPD (chronic obstructive pulmonary disease) Arthritis History of back problems Anxiety and depression Chronic pancreatitis HPV (human papilloma virus) infection Anemia Tobacco abuse GERD (gastroesophageal reflux disease) Benign hypertension Home Medications ?Medication ?Instructions ?Recorded ?Last Taken ?Type cholecalciferol (vitamin D3) 50 50 mcg PO DAILY SUPPLE MENT 12/29/18 10/31/22 History mcg (2,000 unit) capsule aripiprazole 5 mg tablet (Abilify) 5 mg PO DAILY mood 01/22/21 10/31/22 History mirtazapine 45 mg tablet 45 mg PO QHS sleep 01/16/22 01/01/24 History metoprolol tartrate 25 mg tablet 25 mg PO BID 30 days #60 tabs 01/05/24 Unknown Rx amlodipine 10 mg tablet 5 mg PO DAILY 01/26/24 Unkno wn History lisinopril 10 mg tablet 10 mg PO QDAY 01/26/24 Unkno wn History albuterol sulfate 90 mcg/actuation 2 puff inhalation Q 4H PRN 05/11/24 Unknown Rx aerosol inhaler (Ventolin HFA) shortness of breath or wheezing #18 grams tramadol 100 mg tablet 100 mg PO Q6H PRN pain 5 day s #20 12/12/24 Unknown Rx tabs nicotine 14 mg/24 hr daily 1 patch transdermal ONCE #2 8 ea 12/14/24 Unknown Rx transdermal patch guaifenesin 100 mg/5 mL oral liquid 200 mg (10 mL) PO Q4H PRN 12/16/24 Unknown Rx congestion #473 mL budesonide 160 mcg-glycopyr 9 2 inh inhalation BID #10 .7 grams 12/23/24 Unknown Rx mcg-formot 4.8 mcg/actuation HFA inhaler (Breztri Aerosphere) hydroxyzine HCl 25 mg tablet 25 mg PO TID 12/23/24 Unk nown History meloxicam 7.5 mg tablet 7.5 mg PO QDAY 12/23/24 Unkn own History ondansetron 4 mg disintegrating 4 mg PO Q6 PRN nausea/ vomiting 12/23/24 Unknown History tablet spacer #1 ea 12/23/24 Unknown Rx prednisone 20 mg tablet 40 mg (2 x 20 mg) PO DAILY # 8 12/24/24 Unknown Rx TABLETS tramadol 50 mg tablet 50 mg PO Q6H PRN pain #12 ta bs 12/24/24 Unknown Rx Shower chair #1 ea 12/30/24 Unknown Rx tramadol 50 mg tablet 50 mg PO Q6H PRN pain 3 days #12 01/01/25 Unknown Rx tabs ipratropium 0.5 mg-albuterol 3 mg 3 ml inhalation Q4H shortness of 01/04/25 Unknown Rx (2.5 mg base)/3 mL nebulization breath or wheezing #36 0 mL soln prednisone 20 mg tablet 40 mg (2 x 20 mg) PO DAILY 5 days 01/27/25 Unknown Rx #10 tabs gabapentin 300 mg capsule 300 mg PO BID 02/08/25 Unkno wn History ondansetron 4 mg disintegrating 4 mg PO Q8H PRN PRN Na usea #12 tabs 02/26/25 Unknown Rx tablet tramadol 50 mg tablet 50 mg PO Q6H PRN PRN Pain 3 days 02/26/25 Unknown Rx #12 tabs Allergy/AdvReac Type Severity Reaction Status Date / Time clindamycin Allergy Intermediate Hives Verified 02/26/25 13:57 Penicillins Allergy Hives Verified 02/26/25 13:57 sulfamethoxazole (From Allergy Other Verified 02/26/25 13:57 Bactrim) trimethoprim (From Bactrim) Allergy Other Verified 02/26/25 13:57 hydrocodone (From Center) AdvReac Itching Verified 02/26/25 13:57 Family History Mother Diabetes Hypertension Heart disease High cholesterol Arthritis Thyroid disorder Brother Hypertension Sister Cancer cervical Thyroid disorder Father Kidney disease Daughter Thyroid disorder Surgical History History of tubal ligation History of colonoscopy History of appendectomy Social History household members: family Smoking Status: Current every day smoker tobacco type: cigarettes Tobacco: How many years used: 30 second hand exposure: Yes alcohol intake: former details: Sober since 2020. substance use type: does not use caffeine: Yes EXAM Physical Exam Const Vital Signs: 03/13/25 11:02 03/13/25 13:00 03/13/25 14:00 Temperature 98.3 F 98.4 F 98.1 F Temperature Source Oral Oral Oral Pulse Rate 124 H 97 109 H Respiratory Rate 20 H 15 19 H Blood Pressure 103/72 130/65 H 162/77 H Blood Pressure Mean 82 86 105 Pulse Ox 91 100 100 Oxygen Delivery Method Nasal Cannula Room Air Nasal Cannula Oxygen Flow Rate (L/min) 5 03/13/25 15:00 03/13/25 16:00 Temperature 98.6 F 98.2 F Temperature Source Oral Oral Pulse Rate 104 H 94 Respiratory Rate 22 H 17 Blood Pressure 112/61 135/58 H Blood Pressure Mean 78 83 Pulse Ox 94 95 Oxygen Delivery Method Nasal Cannula Nasal Cannula Oxygen Flow Rate (L/min) MDM MDM MDM Narrative Medical decision making narrative: 59-year-old female with past medical history of HTN, HLD, COPD on 5 L nasal cannula baseline, chronic pancreatitis with history of cholecystectomy and appendectomy presents for evaluation of epigastric abdominal pain. Patient states that she had a pancreatic stent placed on Thursday with Dr. Garrido at [facility]. Differential diagnosis includes but is not limited to acute pancreatitis, chronic pancreatitis, pseudocyst, pancreatic necrosis, electrolyte abnormality, CHUY, UTI. Patient is on her baseline 5 L nasal cannula without shortness of breath or chest pain however given her chronic cough will get chest x-ray to assess for pneumonia given recent procedure. I did try to [facility] the patient multiple times to obtain her record however could not get the website to work. CBC shows leukocytosis of 29.2. On chart review, she has had leukocytosis in the past periodically in the 20s. Patient has anemia with hemoglobin 11.2. On chart review, she has a history of anemia. Platelet count unremarkable. CMP unremarkable without significant electrolyte abnormality or CHUY. Patient does have mild ALT elevation at 38. AST unremarkable. No hyperbilirubinemia. Lipase elevated at 378. UA negative for nitrites but positive for leuk esterase. 5-10 WBCs but no bacteria. Not consistent with a true UTI however will send for culture. Patient not endorsing any dysuria. Alcohol level unremarkable. Chest x-ray personally viewed interpreted by me, ED physician, no pneumonia, effusion, cardiomegaly, pneumothorax. Radiology in agreement. CT of the abdomen pelvis shows a stent in the body of the pancreas ascending into the [place]by and 2nd/3rd portion of the duodenum, unchanged. There is. Pancreatic inflammation at the body of the head, extending into the mesenteric root in the right left paracolic gutter, new compared to previous exam. No organized or drainable collection. Pancreatic calcifications consistent with chronic pancreatitis. 0.6 cm solid pulmonary nodule in the right lung base, unchanged from February. New compared to October. Recommend CT chest for further evaluation. At this point in time I do not think there is any emergent need for CT chest. Patient has acute on chronic pancreatitis. On reevaluation she is still having abdominal pain, more morphine ordered. Patient will warrant admission for her intractable pain secondary to pancreatitis. I did speak with the hospitalist service who recommended transfer given patient recently had stent. Patient originally states she does not want to be transferred but then is in agreement. We reached out to [facility], they have no record of the patient. Patient was informed of this and now states she cannot care at [facility]. Reached out to the transfer line at [facility]. I spoke with Dr. Pascual BENÍTEZ who accepted admission for transfer. States patient had an ERCP with stent placed. At this point in time, no clear etiology for patient's leukocytosis although I suspect that it is likely reactive to her pancreatitis. No need for antibiotics at this time per Dr. Garner. Patient will be transferred. Patient was updated on the results and from understand the plan. Impression: 1. Acute on chronic pancreatitis, postoperative from ERCP and stent placement 2. Anemia Lab Data Labs: Laboratory Results - last 24 hr 03/13/25 03/13/25 03/13/25 12:16 12:32 12:58 WBC 29.2 H RBC 4.17 L Hgb 11.2 L Hct 35.9 L MCV 86.1 MCH 26.9 L MCHC 31.2 L RDW Std Deviation 46.1 H RDW Coeff of Min 14.7 H Plt Count 277 MPV 10.8 Immature Gran % (Auto) 1.200 H Neut % (Auto) 83.5 H Lymph % (Auto) 6.3 L [place] % (Auto) 8.1 Eos % (Auto) 0.5 Baso % (Auto) 0.4 Absolute Neuts (auto) 24.3 H Absolute Lymphs (auto) 1.85 Nucleated RBC % 0 Differential Comment SCANNED Sodium 134 Potassium 3.6 Chloride 92 L Carbon Dioxide 28.0 Anion Gap 14 BUN 14 Creatinine 0.84 Estim Creat Clear Calc 58.18 Est GFR (MDRD) Non-Af 79 BUN/Creatinine Ratio 16.9 Glucose 100 H Lactic Acid < 1.0 Calcium 9.5 Total Bilirubin 0.49 Direct Bilirubin 0.29 AST 21 ALT 38 H Alkaline Phosphatase 149 H Total Protein 7.0 Albumin 3.8 Globulin 3.2 Lipase 378 H Urine Color Urine Clarity Urine pH Ur Specific [place] Urine Protein Urine Glucose (UA) Urine Ketones Urine Occult Blood Urine Nitrite Urine Bilirubin Urine Urobilinogen Ur Leukocyte Esterase Urine RBC Urine WBC Ur Squamous Epith Cells Urine Bacteria Urine Mucus Ethyl Alcohol < 10.1 03/13/25 14:11 WBC RBC Hgb Hct MCV MCH MCHC RDW Std Deviation RDW Coeff of Min Plt Count MPV Immature Gran % (Auto) Neut % (Auto) Lymph % (Auto) [place] % (Auto) Eos % (Auto) Baso % (Auto) Absolute Neuts (auto) Absolute Lymphs (auto) Nucleated RBC % Differential Comment Sodium Potassium Chloride Carbon Dioxide Anion Gap BUN Creatinine Estim Creat Clear Calc Est GFR (MDRD) Non-Af BUN/Creatinine Ratio Glucose Lactic Acid Calcium Total Bilirubin Direct Bilirubin AST ALT Alkaline Phosphatase Total Protein Albumin Globulin Lipase Urine Color Straw Urine Clarity Clear Urine pH 7.0 Ur Specific [place] 1.005 Urine Protein 30 H Urine Glucose (UA) Normal Urine Ketones Negative Urine Occult Blood Negative Urine Nitrite Negative Urine Bilirubin Negative Urine Urobilinogen Normal Ur Leukocyte Esterase 100 H Urine RBC 0-5 SEEN Urine WBC 5-10 SEEN Ur Squamous Epith Cells 0-5 SEEN Urine Bacteria 0 SEEN Urine Mucus 0 SEEN Ethyl Alcohol Radiography Diagnostic Testing: Clinical Impression(s) from Imaging Studies Abdomen/Pelvis CT 03/13/25 12:22 IMPRESSION: There is a stent in the body of the pancreas extending into the head and 2nd-3rd portion of the duodenum, unchanged. There is peripancreatic inflammation at the body and head, extending into the mesenteric root and right and left pericolic gutter, new compared to the prior. There is no organized or drainable collection. Pancreatic calcifications are present which are consistent with chronic pancreatitis, predominantly in the head, similar to the prior. There is a 0.6 cm solid pulmonary nodule in the right lung base, image 6/118, unchanged from the February 26, 2025 exam, new compared to the November 04, [address] correlation is recommended. Critical results were discussed with Dr. Rand by Dr. Grover at the time of dictation. Reading [facility] Chest X-Ray 03/13/25 12:40 IMPRESSION: No evidence of acute cardiopulmonary pathology. Reading Location: [facility] Discharge Plan Triage Chief Complaint: Abd Pain ED Provider: Doug Alex Dx/Rx/DC Orders Prescriptions: No Action mirtazapine 45 mg tablet 45 mg PO QHS amlodipine 10 mg tablet 5 mg PO DAILY Rx Instructions: Hold for SBP less than 130 mmHg lisinopril 10 mg tablet 10 mg PO QDAY albuterol sulfate [Ventolin HFA] 90 mcg/actuation HFA aerosol inhaler 2 puff INHALATION Q4H PRN (Reason: shortness of breath or wheezing) Qty: 18 11RF gabapentin 300 mg capsule 300 mg PO BID meloxicam 7.5 mg tablet 7.5 mg PO QDAY ondansetron 4 mg tablet,disintegrating 4 mg PO Q6 PRN (Reason: nausea/vomiting) hydroxyzine HCl 25 mg tablet 25 mg PO TID Breztri Aerosphere 160-9-4.8 mcg/actuation HFA aerosol inhaler 2 inh inhalation BID Qty: 10.7 6RF (DME) spacer See Rx Instructions .ROUTE .MEDSUPPLY Qty: 1 0RF Rx Instructions: As directed cholecalciferol (vitamin D3) 2,000 UNIT capsule 50 mcg PO DAILY aripiprazole [Abilify] 5 mg Tablet 5 mg PO DAILY metoprolol tartrate 25 mg Tablet 25 mg PO BID 30 Days Qty: 60 0RF Rx Instructions: Hold for heart less than 50 or systolic blood pressure less than 100 mmHg. tramadol 100 mg tablet 100 mg PO Q6H PRN (Reason: pain) 5 Days Qty: 20 0RF prednisone 20 mg tablet 40 mg PO DAILY Qty: 8 0RF tramadol 50 mg tablet 50 mg PO Q6H PRN (Reason: pain) Qty: 12 0RF tramadol 50 mg tablet 50 mg PO Q6H PRN (Reason: pain) 3 Days Qty: 12 0RF prednisone 20 mg tablet 40 mg PO DAILY 5 Days Qty: 10 0RF ondansetron 4 mg tablet,disintegrating 4 mg PO Q8H PRN PRN (Reason: Nausea) Qty: 12 0RF tramadol 50 mg tablet 50 mg PO Q6H PRN PRN (Reason: Pain) 3 Days Qty: 12 0RF nicotine 14 mg/24 hr patch 24 hour 1 patch transdermal ONCE Qty: 28 1RF guaifenesin 100 mg/5 mL liquid 200 mg PO Q4H PRN (Reason: congestion) Qty: 473 0RF (DME) Shower chair See Rx Instructions .Route .MEDSUPPLY Qty: 1 0RF Rx Instructions: As directed ipratropium-albuterol 0.5 mg-3 mg(2.5 mg base)/3 mL solution for nebulization 3 ml inhalation Q4H Qty: 360 11RF Primary Care Provider: Annmarie Hay Referrals: Annmarie Hay MD [Primary Care Provider] - Print Language: Ivorian
[2025-03-13 12:50] LABS: Absolute Lymphocyte Count 1.85 X10^3/uL (0.83-4.51); Absolute Neutrophil Count 24.3 X10^3/uL (2.0-7.7); Basophil# 0.11 X10^3/uL; Basophil% 0.4 % (0-1); Eosinophil# 0.15 X10^3/uL; Eosinophils% 0.5 % (0-5); Hematocrit 35.9 % (37-47); Hemoglobin 11.2 g/dL (12.0-15.0); Lymphocyte # 1.85 X10^3/ul (0.83-4.51); Lymphocyte % 6.3 % (19-41); Mean Corp Hgb Conc 31.2 g/dL (32-36); Mean Corpuscular Hgb 26.9 pg (27.0-32.0); Mean Corpuscular Volume 86.1 fL (81-99); Mean Platelet Vol. 10.8 fl (6.2-12.0); Monocyte# 2.36 X10^3/uL; Monocyte% 8.1 % (0-10); NRBC Flagged by Analyzer 0 % (0-5); Neutrophil # 24.34 X10^3/uL (2.7-7.7); Neutrophil % 83.5 % (47-70); POSITIVE DIFFERENTIAL YES; Platelet Count 277 K/mm3 (150-450); RBC Distribution Width CV 14.7 % (11.6-14.6); RBC Distribution Width SD 46.1 fl (35.1-43.9); Red Blood Count 4.17 M/mm3 (4.2-5.4); White Blood Count 29.2 K/mm3 (4.4-11.0)
[2025-03-13 12:57] LABS: Differential Indicated SCAN CRITERIA MET
[2025-03-13 13:08] LABS: AST(SGOT) 21 U/L (<=31); Alanine Aminotransfer ALT/SGPT 38 U/L (<=34); Albumin, Serum 3.8 g/dL (3.4-4.8); Alkaline Phosphatase 149 U/L (35-104); Anion Gap 14 (5-15); BUN 14 mg/dL (4-19); BUN/Creat Ratio 16.9 RATIO (10-20); Bilirubin, Direct 0.29 mg/dL (0.00-0.30); Calcium,Total 9.5 mg/dL (7.6-11.0); Chloride 92 mmol/L (98-108); Creatinine, Serum 0.84 mg/dL (0.70-1.20); EST Glomerular Filtration Rate 79 (>60); Estimated Creatinine Clearance 58.18 ml/min (50-250); Globulin 3.2 g/dL (2.2-4.2); Glucose 100 mg/dL (70-99); Potassium 3.6 mmol/L (3.3-5.1); Sodium Level 134 mmol/L (133-145); Total Bilirubin 0.49 mg/dL (0.00-1.30)
[2025-03-13] MEDS: Morphine 4 MG/ML Syringe IV ×3 (13:12→21:04)
[2025-03-13] MEDS: Ondansetron 4 MG/2 ML Vial IV (13:12)
[2025-03-13] MEDS: 0.9% Normal Saline (1000mL) 1,000 ML 999 ML IV (13:12)
[2025-03-13 13:20] LABS: Lactic Acid < 1.0 mmol/L (0.0-2.0)
[2025-03-13 13:30] LABS: Lipase 378 U/L (13-75)
[2025-03-13 13:39] LABS: Differential Comment SCANNED
[2025-03-13 13:52] LABS: Alcohol, Blood (Medical)-Serum < 10.1 mg/dL (<=10.0)
[2025-03-13 14:18] LABS: Bacteria 0 SEEN /hpf (None Seen); Mucous, Urine 0 SEEN /hpf (<or=2+)
[2025-03-13 14:23] LABS: Color, Urine Straw (Yellow); Glucose, Dipstick Normal (Normal); Ketone-Dipstick Negative (Negative); Leukocyte Esterase-Dipstick 100 /ul (Negative); Nitrite-Dipstick Negative (Negative); Occult Blood-Urine Negative /ul (Negative); Protein-Dipstick 30 mg/dl (Negative); Specific Gravity, Urine 1.005 (1.002-1.030); Urine Bilirubin Dipstick Negative (Negative); Urine Clarity Clear (Clear); Urine Urobilinogen Normal (Normal)
[2025-03-13 14:45] LABS: Red Blood Cells-Urine 0-5 SEEN /hpf (0-5); Squamous Epithelial Cells - UA 0-5 SEEN /hpf (5-10); White Blood Cells 5-10 SEEN /hpf (0-5)
[2025-03-13] MEDS: 0.9% Normal Saline (1000mL) 1,000 ML 100 ML IV (18:51)
--- NOTE | 2025-03-13 20:17 | ED.RN ---
Patient ambulated to bathroom with O2.
--- NOTE | 2025-03-13 20:25 | ED.RN ---
Patient ambulated to bathroom on 4L. When patient returned to bed on O2 spO2 was 70%, HR 140. O2 increased to 6L, pt 89%. Dr. Doe notified and breathing treatment requested. RT notified of new order for breathing treatment and requested to assess patient.
[2025-03-13] MEDS: Ipratropium/Albuterol Sulfate 3 ML AMPUL.NEB INHALATION (20:32)
[2025-03-13] MEDS: Lorazepam 2 MG/ML WCH Syringe 0.5 MG IV (21:04)
--- NOTE | 2025-03-13 23:09 | PCA ---
CALLED TRANSFER LINE FOR BED STATUS UPDATE. SPOKE W NURSE SHIRLEY WHO SAID PT IS WAITONG ON DISCHARGES FOR BED, WILL NOT BE TONIGHT. TOMORROW AM/AFTERNOON MOST LIKELY.
--- NOTE | 2025-03-13 23:20 | PCM.HP.STD ---
HPI - General General Date of Admission: 03/13/25 Date of Service: 03/13/25 Chief Complaint: Abdominal pain HPI Narrative MIR KANG, is a 59 F who presents to the emergency room with chief complaint of abdominal pain. Patient has significant past medical history of hypertension, hyperlipidemia, COPD on 5 L nasal cannula at baseline, chronic pancreatitis with history of cholecystectomy and appendectomy. Patient states she has chronic pancreatitis secondary to alcohol abuse and has been sober for the past several months. She was recently admitted to [facility] and treated by GI specialist Dr. Portillo. She had a surgery performed for her pancreatitis and a stent was placed this past Thursday. Patient states she has had worsening epigastric abdominal pain since discharge on Thursday. She denies fever, chills, shortness of breath, chest pain, diarrhea constipation or dysuria. Patient has been accepted to [facility] for transfer from the emergency room, however, a bed is not available this evening and patient will be admitted temporarily in our facility while pending transfer to tertiary care facility to address pancreatic stent and acute pancreatitis. [facility] Medical History (Reviewed 02/08/25 @ 13:18 by Ani Eduardo [employer], [employer]-C) Stenosis of left subclavian artery Pulmonary nodule Acute hypoxic respiratory failure Chronic pancreatitis Pancreatic stones HLD (hyperlipidemia) History of alcohol abuse Pneumonia Acute on chronic hypoxic respiratory failure Stage 3 severe COPD by GOLD classification Asthma COPD (chronic obstructive pulmonary disease) Arthritis History of back problems Anxiety and depression Chronic pancreatitis HPV (human papilloma virus) infection Anemia Tobacco abuse GERD (gastroesophageal reflux disease) Benign hypertension Home Medications ?Medication ?Instructions ?Recorded ?Last Taken ?Type cholecalciferol (vitamin D3) 50 50 mcg PO DAILY SUPPLEMENT 12/29/18 10/31/22 History mcg (2,000 unit) capsule aripiprazole 5 mg tablet (Abilify) 5 mg PO DAILY mood 01/22/21 10/31/22 History mirtazapine 45 mg tablet 45 mg PO QHS sleep 01/16/22 01/01/24 History metoprolol tartrate 25 mg tablet 25 mg PO BID 30 days #60 tabs 01/05/24 Unknown Rx lisinopril 10 mg tablet 10 mg PO QDAY 01/26/24 Unknown History albuterol sulfate 90 mcg/actuation 2 puff inhalation Q4H PRN 05/11/24 Unknown Rx aerosol inhaler (Ventolin HFA) shortness of breath or wheezing #18 grams tramadol 100 mg tablet 100 mg PO Q6H PRN pain 5 days #20 12/12/24 Unknown Rx tabs nicotine 14 mg/24 hr daily 1 patch transdermal ONCE #28 ea 12/14/24 Unknown Rx transdermal patch guaifenesin 100 mg/5 mL oral liquid 200 mg (10 mL) PO Q4H PRN 12/16/24 Unknown Rx congestion #473 mL budesonide 160 mcg-glycopyr 9 2 inh inhalation BID #10.7 grams 12/23/24 Unknown Rx mcg-formot 4.8 mcg/actuation HFA inhaler (Breztri Aerosphere) hydroxyzine HCl 25 mg tablet 25 mg PO TID 12/23/24 Unknown History meloxicam 7.5 mg tablet 7.5 mg PO QDAY 12/23/24 Unknown History ondansetron 4 mg disintegrating 4 mg PO Q6 PRN nausea/vomiting 12/23/24 Unknown History tablet spacer #1 ea 12/23/24 Unknown Rx prednisone 20 mg tablet 40 mg (2 x 20 mg) PO DAILY #8 12/24/24 Unknown Rx TABLETS tramadol 50 mg tablet 50 mg PO Q6H PRN pain #12 tabs 12/24/24 Unknown Rx Shower chair #1 ea 12/30/24 Unknown Rx tramadol 50 mg tablet 50 mg PO Q6H PRN pain 3 days #12 01/01/25 Unknown Rx tabs ipratropium 0.5 mg-albuterol 3 mg 3 ml inhalation Q4H shortness of 01/04/25 Unknown Rx (2.5 mg base)/3 mL nebulization breath or wheezing #360 mL soln prednisone 20 mg tablet 40 mg (2 x 20 mg) PO DAILY 5 days 01/27/25 Unknown Rx #10 tabs gabapentin 300 mg capsule 300 mg PO BID 02/08/25 Unknown History ondansetron 4 mg disintegrating 4 mg PO Q8H PRN PRN Nausea #12 tabs 02/26/25 Unknown Rx tablet tramadol 50 mg tablet 50 mg PO Q6H PRN PRN Pain 3 days 02/26/25 Unknown Rx #12 tabs albuterol sulfate 2.5 mg/3 mL mg 03/13/25 Unknown History (0.083 %) solution for nebulization amlodipine 5 mg tablet 5 mg PO DAILY 03/13/25 Unknown History pantoprazole 40 mg tablet,delayed 40 mg PO DAILY 03/13/25 Unknown History release simvastatin 20 mg tablet 20 mg PO QHS 03/13/25 Unknown History Allergy/AdvReac Type Severity Reaction Status Date / Time clindamycin Allergy Intermediate Hives Verified 02/26/25 13:57 Penicillins Allergy Hives Verified 02/26/25 13:57 sulfamethoxazole (From Allergy Other Verified 02/26/25 13:57 Bactrim) trimethoprim (From Bactrim) Allergy Other Verified 02/26/25 13:57 hydrocodone (From [place]) AdvReac Itching Verified 02/26/25 13:57 Family History Mother Diabetes Hypertension Heart disease High cholesterol Arthritis Thyroid disorder Brother Hypertension Sister Cancer cervical Thyroid disorder Father Kidney disease Daughter Thyroid disorder Surgical History History of tubal ligation History of colonoscopy History of appendectomy Social History household members: family Smoking Status: Current every day smoker tobacco type: cigarettes Tobacco: How many years used: 30 second hand exposure: Yes alcohol intake: former details: Sober since 2020. substance use type: does not use caffeine: Yes ROS Constitutional Constitutional: Denies chills or fever(s) Eyes Eyes: Denies blurry vision ENT HEENT: Denies abnormal hearing Cardiovascular Cardiovascular: Denies chest pain Respiratory/Chest Respiratory/Chest: Reports shortness of breath with exertion Gastrointestinal Gastrointestinal: Reports abdominal pain Genitourinary Genitourinary: Denies dysuria Musculoskeletal Musculoskeletal: Denies back pain Integumentary Integumentary: Denies dry skin Neurologic Neurologic: Denies abnormal gait Psychiatric Psychiatric: Denies depression Vital Signs Vital Signs Vital Signs: 03/13/25 11:02 03/13/25 13:00 03/13/25 14:00 Temperature 98.3 F 98.4 F 98.1 F Temperature Source Oral Oral Oral Pulse Rate 124 H 97 109 H Respiratory Rate 20 H 15 19 H Blood Pressure 103/72 130/65 H 162/77 H Blood Pressure Mean 82 86 105 Pulse Ox 91 100 100 Oxygen Delivery Method Nasal Cannula Room Air Nasal Cannula Oxygen Flow Rate (L/min) 5 03/13/25 15:00 03/13/25 16:00 03/13/25 17:00 Temperature 98.6 F 98.2 F 97.9 F Temperature Source Oral Oral Oral Pulse Rate 104 H 94 93 Respiratory Rate 22 H 17 19 H Blood Pressure 112/61 135/58 H 105/59 L Blood Pressure Mean 78 83 74 Pulse Ox 94 95 96 Oxygen Delivery Method Nasal Cannula Nasal Cannula Nasal Cannula Oxygen Flow Rate (L/min) 03/13/25 19:00 03/13/25 20:30 03/13/25 21:00 Temperature Temperature Source Pulse Rate 70 80 113 H Respiratory Rate 20 H 15 22 H Blood Pressure 164/60 H 116/67 Blood Pressure Mean 94 83 Pulse Ox 96 89 Oxygen Delivery Method Room Air Nasal Cannula Oxygen Flow Rate (L/min) 6 03/13/25 21:29 03/13/25 23:00 Temperature Temperature Source Pulse Rate 111 H 107 H Respiratory Rate 20 H 17 Blood Pressure 116/67 125/60 H Blood Pressure Mean 83 81 Pulse Ox 91 87 Oxygen Delivery Method High Flow Nasal Cannula Oxygen Flow Rate (L/min) 8 8 Weight Weight: 131 lb 11.2 oz Body Mass Index (BMI) 23.3 Physical Exam Const alert General Appearance: cooperative and well developed HEENT normocephalic Eyes PERRL Neck no lymphadenopathy Lymph Lymphatic: no lymphadenopathy noted Resp normal respiratory effort, normal air movement and clear to auscultation bilaterally Cardio regular rate, regular rhythm, S1 normal heart sound and S2 normal heart sound GI Inspection: abdominal distention Palpation: tender epigastric Extremity normal capillary refill Skin General Skin Exam: no breakdown Neuro no focal motor deficits and no sensory deficits noted Psych cooperative and affect normal Results Lab / Micro Data 03/13/25 12:16 03/13/25 12:16 Labs: Laboratory Results - last 24 hr 03/13/25 12:16: WBC 29.2 H, RBC 4.17 L, Hgb 11.2 L, Hct 35.9 L, MCV 86.1, MCH 26.9 L, MCHC 31.2 L, RDW Std Deviation 46.1 H, RDW Coeff of Min 14.7 H, Plt Count 277, MPV 10.8, Immature Gran % (Auto) 1.200 H, Neut % (Auto) 83.5 H, Lymph % (Auto) 6.3 L, [place] % (Auto) 8.1, Eos % (Auto) 0.5, Baso % (Auto) 0.4, Absolute Neuts (auto) 24.3 H, Absolute Lymphs (auto) 1.85, Nucleated RBC % 0, Differential Comment SCANNED, Sodium 134, Potassium 3.6, Chloride 92 L, Carbon Dioxide 28.0, Anion Gap 14, BUN 14, Creatinine 0.84, Estim Creat Clear Calc 58.18, Est GFR (MDRD) Non-Af 79, BUN/Creatinine Ratio 16.9, Glucose 100 H, Calcium 9.5, Total Bilirubin 0.49, Direct Bilirubin 0.29, AST 21, ALT 38 H, Alkaline Phosphatase 149 H, Total Protein 7.0, Albumin 3.8, Globulin 3.2, Lipase 378 H 03/13/25 12:32: Lactic Acid < 1.0 03/13/25 12:58: Ethyl Alcohol < 10.1 03/13/25 14:11: Urine Color Straw, Urine Clarity Clear, Urine pH 7.0, Ur Specific [place] 1.005, Urine Protein 30 H, Urine Glucose (UA) Normal, Urine Ketones Negative, Urine Occult Blood Negative, Urine Nitrite Negative, Urine Bilirubin Negative, Urine Urobilinogen Normal, Ur Leukocyte Esterase 100 H, Urine RBC 0-5 SEEN, Urine WBC 5-10 SEEN, Ur Squamous Epith Cells 0-5 SEEN, Urine Bacteria 0 SEEN, Urine Mucus 0 SEEN Imaging Radiology Impression Abdomen/Pelvis CT 03/13/25 12:22 IMPRESSION: There is a stent in the body of the pancreas extending into the head and 2nd-3rd portion of the duodenum, unchanged. There is peripancreatic inflammation at the body and head, extending into the mesenteric root and right and left pericolic gutter, new compared to the prior. There is no organized or drainable collection. Pancreatic calcifications are present which are consistent with chronic pancreatitis, predominantly in the head, similar to the prior. There is a 0.6 cm solid pulmonary nodule in the right lung base, image 6/118, unchanged from the February 26, 2025 exam, new compared to the November 04, [address] correlation is recommended. Critical results were discussed with Dr. Rand by Dr. Grover at the time of dictation. Reading Location: [facility] Chest X-Ray 03/13/25 12:40 IMPRESSION: No evidence of acute cardiopulmonary pathology. Reading Location: [id number] Assessment & Plan Assessment/Plan (1) Smoking greater than 30 pack years: (2) COPD (chronic obstructive pulmonary disease): QUALIFIERS: COPD type: emphysema Emphysema type: centrilobular Qualified Code(s): J43.2 - Centrilobular emphysema (3) Abdominal pain: (4) Chronic pancreatitis: QUALIFIERS: Pancreatitis type: alcohol induced Qualified Code(s): K86.0 - 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 chronic pancreatitis PLAN: Plan 1. Acute on chronic pancreatitis?admit patient temporarily to our facility pending transfer to [facility], make n.p.o., IV normal saline at a rate of 125 cc/h, morphine 2 to 4 mg every 3 hours as needed pain. Transfer patient as soon as bed is available, repeat CBC, CMP, lipase in a.m. 2. Leukocytosis with left shift?patient is currently afebrile will monitor as she has just had a stent placed this past Thursday and suspect some of this may be reactive change to that procedure 3. COPD continue routine inhalation medications and 5 L nasal cannula which she has been on routinely 4. DVT prophylaxis?low molecular weight heparin
--- OUTSIDE RECORDS SUMMARY | 2025-03-13 23:56 | XMS RPT_ITS | CCD ---
Author Organization [facility] Care Team Providers Care Collections Clerk Name Role Phone CHING MARI Unavailable Unavailable Annmarie Elkins MD Primary Care Provider Ho WARNING COORDINATION METEOROLOGIST, WARNING COORDINATION METEOROLOGIST-C Theron Primary Care Provider Dr. Freddie Perdue Attending Provider [phone] Dr. Freddie Perdue Referring Provider Annmarie Elkins MD Primary Care Provider Annmarie Elkins MD Primary Care Provider RUSTAM WARNING COORDINATION METEOROLOGIST-C SOILA Primary Care Provider Alesha WARNING COORDINATION METEOROLOGIST, WARNING COORDINATION METEOROLOGIST-C Ani Attending Provider [phone] Alesha WARNING COORDINATION METEOROLOGIST, WARNING COORDINATION METEOROLOGIST-C Ani Referring Provider [phone] Unavailable Primary Care Provider Unavailabl e Free, Text Entry Unavailable Unavailable Older, Soila A Unavailable Unavailable Yalamanchali, Varija Unavailable Unavailable Prendes, Yrn Unavailable Unavailable Older, Soila A Unavailable Jaime Aggarwal MD Unavailable Jeffery Jin MD Unavailable Dr. Edmund Tang Emergency Provider [phone] Ciarra Ross Admit Provider Dr. Ciarra Ross Attending Provider [phone] Ciarra Ross Other Provider Dr. Lisa Ochoa Attending Provider Dr. Lisa Ochoa Other Provider Dr. Nacho Vega Attending Provider Dr. Mahamed Fatima Referring Provider Dr. Freddie Perdue Other Provider Dr. Gonzalo Sebastian Attending Provider Dr. Gonzalo Sebastian Other Provider Dr. Olivier Coffman Other Provider Dr. Dieter Harrison Other Provider Unavailab anjelica Eduardo WARNING COORDINATION METEOROLOGIST, WARNING COORDINATION METEOROLOGIST-C Ani Other Provider Dr. Anastacia Bonilla Other Provider Dr. Anastacia Bonilla Attending Provider Dr. Courtney Iverson Other Provider Dr. Donn Galan Attending Provider PROVIDER, UNKNOWN Admitting Unavailable PROVIDER, UNKNOWN Attending Unavailable PROVIDER, UNKNOWN Admitting Unavailable PROVIDER, UNKNOWN Attending Unavailable SUNKESULA, ROBBY Admitting Unavailable PROVIDER, UNKNOWN Attending Unavailable PROVIDER, UNKNOWN Admitting Unavailable PROVIDER, UNKNOWN Admitting Unavailable PROVIDER, UNKNOWN Attending Unavailable PROVIDER, UNKNOWN Attending Unavailable PROVIDER, UNKNOWN Admitting Unavailable SUNKESULA, ROBBY Admitting Unavailable SUNKESULA, ROBBY Attending Unavailable CONSULT, IP INFECTIOUS DISEASE Consulting U navailable PROVIDER, UNKNOWN Admitting Unavailable PROVIDER, UNKNOWN Attending Unavailable Annmarie Elkins MD Primary Care Provider Prendes, Yrn Attending Unavailable Prendes, Yrn Attending Unavailable Prendes, Yrn Attending Unavailable Prendes, Yrn Attending Unavailable Prendes, Yrn Referring Unavailable Prendes, Yrn Attending Unavailable Prendes, Yrn Attending Unavailable Patient, Unavailable Referring Unavailable Jessica Ellis Attending Unavailable Dr. Tai Peoples Admitting Unavailable Pending, Provider Primary Care Unavailable OLDER, WARNING COORDINATION METEOROLOGIST-C SOILA Primary Care Provider OLDER, WARNING COORDINATION METEOROLOGIST-C SOILA Referring Provider Alesha WARNING COORDINATION METEOROLOGIST, WARNING COORDINATION METEOROLOGIST-C Ani Attending Provider Dr. Víctor Huerta Emergency Provider Brock WARNING COORDINATION METEOROLOGIST, WARNING COORDINATION METEOROLOGIST-C Anat Primary Care Provider Dr. Carin Meraz Admit Provider Dr. Carin Meraz Other Provider Dr. Anastacia Bonilla Attending Provider Dr. Anastacia Bonilla Other Provider Dr. Bert Greenwood Attending Provider Dr. Bert Greenwood Other Provider Brittni MENENDEZ, Annmarie Primary Care Provider Mayank BELTRAN, Larry Snyder Unavailable Older COSMETIC CONSULTANT.DAYTIME CAREGIVER, Soila Unavailable Neo BELTRAN, Nara Unavailable Brittni MENENDEZ, Dr. Anguiano Primary Care Provider lAesha WARNING COORDINATION METEOROLOGIST-C, Ani Attending Provider Alesha WARNING COORDINATION METEOROLOGIST-C, Ani Referring Provider Storm MENENDEZ, Dr. Gamez Emergency Provider [phone] Dr. Aleta Aguayo DO Admit Provider Dr. Aleta Aguayo DO Attending Provider Dr. Aleta Aguayo DO Other Provider Dr. Yrn Kahn DO Attending Provider Leigh MENENDEZ, Dr. Conde Other Provider Shannon MENENDEZ, Dr. Davis Other Provider Iron MENENDEZ, Dr. Frazier Other Provider Dr. Gonzalo Sebastian DO Other Provider Lorenza MENENDEZ, Dr. Jackson Salas Other Provider Chris MENENDEZ, Dr. Rico Other Provider Kiko MENENDEZ, Dr. Harley Other Provider Robbie MENENDEZ, Dr. Urban Other Provider Randee MENENDEZ, Dr. Guillory Other Provider Silvio MENENDEZ, Dr. Kelley Other Provider Candido MENENDEZ, Dr. Sandoval Other Provider [phone] Brad MENENDEZ, Dr. Em Other Provider Fede MENENDEZ, Dr. Rodriguez Other [facility] Hurt MD, Dr. Ward Other Provider [phone] Conchita MENENDEZ, Dr. Booker Other Provider [phone] Yamel MENENDEZ, Dr. Johnson Other Provider [phone] Manuel MENENDEZ, Dr. Doan Other Provider [phone] Niru LOTT, Dr. Kathleen Other Provider [phone] Nancy MENENDEZ, Dr. Sánchez Other Provider [phone] Wolf Armando MD, Dr. Gutierres Other Provider [phone] Sofia LOTT, Dr. Hurst Other Provider Jeferson MENENDEZ, Dr. Barreto Other Provider Billy MENENDEZ, Dr. Pal Other Provider Dr. Aleta Aguayo DO Attending Provider Criss LOTT, Dr. Pool Other Provider Dr. Gonzalo Sebastian DO Attending Provider Minor MENENDEZ, Dr. Angeles Attending Provider Chad MENENDEZ, Dr. Anastacia Ni Attending Provider Criss LOTT, Dr. Pool Other Provider Leigh MENENDEZ, Dr. Conde Other Provider Shannon MENENDEZ, Dr. Davis Other Provider Iron MENENDEZ, Dr. Frazier Other Provider Dr. Gonzalo Sebastian DO Other Provider Lorenza MENENDEZ, Dr. Jackson Salas Other Provider Chris MENENDEZ, Dr. Rico Other Provider [phone] Kiko MENENDEZ, Dr. Harley Other Provider Robbie MENENDEZ, Dr. Urban Other Provider Randee MENENDEZ, Dr. Guillory Other Provider [phone] Silvio MENENDEZ, Dr. Kelley Other Provider Candido MENENDEZ, Dr. Sandoval Other Provider Brad MENENDEZ, Dr. Em Other Provider Fede MENENDEZ, Dr. Rodriguez [facility] Hurt MD, Dr. Ward Other Provider [phone] Conchita MENENDEZ, Dr. Booker Other Provider Yamel MENENDEZ, Dr. Johnson Other Provider Manuel MENENDEZ, Dr. Doan Other Provider Niru LOTT, Dr. Kathleen Other Provider Nancy MENENDEZ, Dr. Sánchez Other Provider [phone] Tr MENENDEZ, Dr. Gutierres Other Provider Sofia LOTT, Dr. Hurst Other Provider Jeferson MENENDEZ, Dr. Barreto Other Provider Billy MENENDEZ, Dr. Pal Other Provider [phone] Dr. Yrn Kahn DO Attending Provider Chad MENENDEZ, Dr. Anastacia Ni Other Provider [phone] Dr. Marshal Segura DO Attending Provider Brittni MENENDEZ, Dr. Anguiano Primary Care Provider Alesha WARNING COORDINATION METEOROLOGIST-C, Ani Attending Provider Alesha WARNING COORDINATION METEOROLOGIST-C, Ani Referring Provider Storm MENENDEZ, Dr. Gamez Emergency Provider Olivier LOTT, Dr. River Admit Provider Dr. Aleta Aguayo DO Other Provider Chad MENENDEZ, Dr. Anastacia Ni Attending Provider Dr. Yrn Kahn DO Other Provider Olivier LOTT, Dr. River Attending Provider Criss LOTT, Dr. Pool Referring Provider Leigh MENENDEZ, Dr. Conde Other Provider Shannon MENENDEZ, Dr. Davis Other Provider Iron MENENDEZ, Dr. Frazier Other Provider Romulo LOTT, Dr. Sánchez Attending Provider Romulo LOTT, Dr. Sánchez Other Provider Lorenza MENENDEZ, Dr. Jackson Salas Other Provider [phone] Chris MENENDEZ, Dr. Rico Other Provider [phone] Kiko MENENDEZ, Dr. Harley Other Provider [phone] Robbie MENENDEZ, Dr. Urban Other Provider [phone] Randee MENENDEZ, Dr. Guillory Other Provider [phone] Silvio MENENDEZ, Dr. Kelley Other Provider [phone] Dr. Jaime Rey MD Other Provider Dr. Maria Antonia Salinas MD Other Provider [phone] Dr. Michael Mistry MD Other Provider Unavailabl cherry Hurt MD, Dr. Ward Other Provider [phone] Conchita MENENDEZ, Dr. Booker Other Provider Yamel MENENDEZ, Dr. Johnson Other Provider [phone] Manuel MENENDEZ, Dr. Doan Other Provider Niru LOTT, Dr. Kathleen Other Provider [phone] Gonzalo Cruz MD Other Provider [phone] Tr MENENDEZ, Dr. Gutierres Other Provider [phone] Aris Black DO Other Provider Jeferson MENENDEZ, Dr. Barreto Other Provider [phone] Billy MENENDEZ, Dr. Pal Other Provider Minor MENENDEZ, Dr. Angeles Attending Provider Dr. Yrn Kahn DO Attending Provider Chad MENENDEZ, Dr. Anastacia Ni Other Provider Cahd MENENDEZ, Dr. Anastacia Ni Referring Provider Colton LOTT, Dr. Araya Attending Provider Brittni MENENDEZ, Dr. Anguiano Referring Provider Gabby Vela Attending Provider Anjelica LOTT, Dr. Hassan Emergency Provider Dr. Mo Velasco DO Attending Provider Leandro Sanchez MD Referring Provider Leandro Sanchez MD Emergency Provider Leandro Sanchez MD Attending Provider Storm MENENDEZ, Dr. Gamez Attending Provider Brock WARNING COORDINATION METEOROLOGIST-C, Anat Referring Provider Ganta, Annmarie Primary Care Unavailable Franco Inman Attending Unavailable Ganta, Annmarie Primary Care Unavailable Víctor Huerta Attending Unavailable Mo Velasco Attending Unavailable Ganta, Annmarie Primary Care Unavailable Ganta, Annmarie Referring Unavailable Gabby Martinez Attending Unavailable Ganta, Annmarie Primary Care Unavailable Franco Inman Attending Unavailable Ganta, Annmarie Primary Care Unavailable Ganta, Annmarie Primary Care Unavailable Gonzalo Sebastian Attending Unavailable Aleta Aguayo Admitting Unavailable Aleta Aguayo Consulting Unavailable Yrn Kahn Referring Unavailable Elton Abraham Consulting Unavailable Ryan Ortega Consulting Unavailable Freddie Perdue Consulting Unavailable Gonzalo Sebastian Consulting Unavailable Jackson Britt Consulting Unavailable Jacky Perez Consulting Unavailable Cricket Hoover Consulting Unavailable Rajni Avalos Consulting Unavailab Kahlil Dietz Consulting Unavailable Warren Anguiano Consulting Unavailable Jaime Rey Consulting Unavailable Maria Antonia Salinas Consulting Unavailable Michael Mistry Consulting Unavailable Hurt, Sylvia Consulting Unavailable Conchita, Jhony Consulting Unavailable Alex Montesinos Consulting Unavailable Manuel, Franki Consulting Unavailable Dhesi, Hever Consulting Unavailable Cruz, Sujoy Consulting Unavailable Tr, Soleyah Consulting Unavailable Aris Black Consulting Unavailable Estevan Govea Consulting Unavailable Demarco Cervantes Consulting Unavailable Tereletsky, Yrn Consulting Unavailable Koram, Anastacia Raine Consulting Unavailable Ganta, Annmarie Primary Care Unavailable Aleta Aguayo Consulting Unavailable Aleta Aguayo Admitting Unavailable Koram, Anastacia Raine Attending Unavailable Tereletsky, Yrn Consulting Unavailable Ganta, Annmarie Primary Care Unavailable Eduardo WARNING COORDINATION METEOROLOGIST, Ani Attending Unavailable Eduardo WARNING COORDINATION METEOROLOGIST, Ani Referring Unavailable Tereletsky, Yrn Attending Unavailable Ganta, Annmarie Primary Care Unavailable Bridgette Gaxiola Attending Unavailabl e Ganta, Annmarie Primary Care Unavailable Gonzalo Sebastian Attending Unavailable Eduardo WARNING COORDINATION METEOROLOGIST, Ani Referring Unavailable Ganta, Annmarie Referring Unavailable Eduardo WARNING COORDINATION METEOROLOGIST, Ani Attending Unavailable Ganta, Annmarie Primary Care Unavailable Ganta, Annmarie Primary Care Unavailable Eduardo WARNING COORDINATION METEOROLOGIST, Ani Attending Unavailable Brock WARNING COORDINATION METEOROLOGIST, Anat Referring Unavailable Koram, Anastacia Raine Attending Unavailable Koram, Anastacia Raine Referring Unavailable Brock WARNING COORDINATION METEOROLOGIST, Anat Primary Care Unavailable Eduardo WARNING COORDINATION METEOROLOGIST, Ani Attending Unavailable Brock WARNING COORDINATION METEOROLOGIST, Anat Referring Unavailable Ganta, Annmarie Primary Care Unavailable Eduardo WARNING COORDINATION METEOROLOGIST, Ani Attending Unavailable Eduardo WARNING COORDINATION METEOROLOGIST, Ani Referring Unavailable ReodicLeandro valdes Attending Unavailable Reodica, Leandro Referring Unavailable Ganta, Annmarie Primary Care Unavailable Marshal Segura Attending Unavailable Aleta Aguayo Attending Unavailable GANTA, ANNMARIE Referring Unavailable GANTA, ANNMARIE Primary Care Unavailable EDUARD GALEANO Attending Unavailable JUAN SENIOR Referring Unavailable GANTA, ANNMARIE Primary Care Unavailable TARA YOUNGBLOOD Attending Unavailabl e GANTA, ANNMARIE Primary Care Unavailable TARA YOUNGBLOOD Referring Unavailabl e GANTA, ANNMARIE Primary Care Unavailable TARA YOUNGBLOOD Referring Unavailabl e GANTA, ANNMARIE Primary Care Unavailable SOILA EASTON Attending Unavailable GANTA, ANNMARIE Primary Care Unavailable VANESSA PEREZ Attending Unavailable Jane Farrell Referring Unavailable GANTA, ANNMARIE Primary Care Unavailable OLDERSOILA Attending Unavailable GANTA, ANNMARIE Primary Care Unavailable OLDER, SOILA Referring Unavailable GANTA, ANNMARIE Primary Care Unavailable OLDER, SOILA Attending Unavailable OLDER, SOILA Referring Unavailable GANTA, ANNMARIE Primary Care Unavailable OLDER, SOILA Referring Unavailable GANTA, ANNMARIE Primary Care Unavailable OLDER, SOILA Referring Unavailable GANTA, ANNMARIE Primary Care Unavailable GANTA, ANNMARIE Attending Unavailable GANTA, ANNMARIE Primary Care Unavailable GANTA, ANNMARIE Attending Unavailable GANTA, ANNMARIE Primary Care Unavailable GANTA, ANNMARIE Referring Unavailable GANTA, ANNMARIE Primary Care Unavailable OLDER, SOILA Referring Unavailable GANTA, ANNMARIE Primary Care Unavailable NADEEN, JUAN Attending Unavailable OLDER, SOILA Referring Unavailable GANTA, ANNMARIE Primary Care Unavailable GANTA, ANNMARIE Attending Unavailable GANTA, ANNMARIE Primary Care Unavailable Allergies Allergy Classification Reported Allergen(s) Allergy Type Date of Onset Reaction(s) Facility (20 sources) diazePAM; Translations: [DIAZEPAM] Drug Allergy 11-02-19 14 Other: See Comments [facility] Work Phone: (20 sources) HYDROcodone; Translations: [HYDROCODONE] Drug Allergy 08-02-20 20 Itching [facility] Work Phone: (20 sources) Penicillins; Translations: [PENICILLINS] Drug Allergy 07-07-20 06 Other: See Comments [facility] Work Phone: (20 sources) Penicillins Drug Allergy 07-07-20 06 Other: See Comments [facility] Work Phone: (15 sources) Penicillins Allergy to substance 01-17-20 22 [facility] (6 sources) Acetaminophen / HYDROcodone; Translations: [ACETAMINOPHEN-HYDR OCODONE] Drug Allergy 10-21-19 23 [facility] Work Phone: (5 sources) Penicillins Propensity to adverse reactions to drug 10-21-19 23 [facility] (1 source) Penicillin Drug Allergy 09-28-18 73 [facility] (20 sources) Sulfamethoxazole / Trimethoprim; Translations: [SULFAMETHOXAZOLE-T RIMETHOPRIM] Drug Allergy 11-29-19 23 [facility] Work Phone: (1 source) Piperacillin / tazobactam; Translations: [Zosyn] Drug Allergy [facility] Work Phone: (11 sources) Sulfamethoxazole Drug Allergy 07-08-20 23 Other [facility] (11 sources) Trimethoprim Drug Allergy 07-08-20 23 Other [facility] (10 sources) Clindamycin Drug Allergy 01-02-20 24 Hives [facility] (20 sources) Penicillins Drug Allergy 07-07-20 06 Other: See Comments [facility] Work Phone: (1 source) Clindamycin Drug Allergy 02-27-20 25 [facility] (1 source) HYDROcodone Drug Allergy 02-27-20 [facility] (1 source) Penicillins Drug allergy (disorder) 02-27-20 [facility] (1 source) Sulfamethoxazole Drug Allergy 02-27-20 [facility] (1 source) Trimethoprim Drug Allergy 02-27-20 [facility] Medications Current Medications Medication Drug Class(es) Dates Sig (Normalized) Sig (Original) albuterol 0.83 mg/ml inhalation solution (20 sources) beta2-Adrenergic Agonist Start: 06-19-2021 End: 06-05-2022 Start: 06-19-2021 End: 06-05-2022 take 2.5 mg by inhalation every four hours as needed for wheezing Albuterol Sulfate 2.5 mg /3 mL (0.083 %) solution for nebulization Discontinued 2.5 mg INHALATION EVERY 4 HOURS NEEDED August 30, 2021 12:57pm June 05, 2022 9:38am Use q4 hours and PRN for wheezing Start: 11-14-2020 End: 05-11-2024 Start: 11-14-2020 End: 05-11-2024 Albuterol Sulfate (Ventolin Hfa) 90 mcg/actuation HFA aerosol inhaler Discontinued 2 NMA INHALATION Q4H as needed for shortness of breath or wheezing January 26, 2024 11:28am May 11, 2024 1:33pm Start: 11-14-2020 take 1 puff(s) by in halation every four hours Albuterol Sulfate (Ventolin Hfa) 90 mcg/actuation HFA aerosol inhaler Active 2 PUFF INHALATION Q4H November 14, 2020 1:00am Start: 01-30-2020 End: 08-27-2022 take 2 puff(s) by inhalation four times daily as needed albuterol HFA (VENTOLIN HFA) 90 mcg/actuation inhaler Inhale 2 Puffs as instructed four times daily as needed. 54 g 4 08/27/2022 Active Start: 12-10-2019 End: 04-06-2020 Start: 12-10-2019 End: 04-06-2020 take 2.5 mg by inhalation every four hours as needed for wheezing Albuterol Sulfate 2.5 MG/3 ML solution for nebulization Discontinued 2.5 mg INHALATION EVERY 4 HOURS NEEDED December 10, 2019 12:00am April 06, 2020 11:52am Use q4 hours and PRN for wheezing Start: 11-10-2018 End: 01-03-2025 albuterol (PROVENTIL) 2.5 mg /3 mL (0.083 %) nebulizer solution Indications: Chronic obstructive pulmonary disease with acute exacerbation (HCC) Use 3 mL via nebulizer one time only for 1 dose. Use over 5-15minutes. 3 mL 01/03/2025 Active Start: 02-27-2018 End: 05-13-2019 Start: 02-27-2018 End: 05-13-2019 take 2.5 mg by inhalation every six hours as needed for wheezing Albuterol Sulfate 2.5 MG/3 ML solution for nebulization Discontinued 2.5 mg INHALATION EVERY 6 HOURS NEEDED as needed for Sob &/Or Wheezing February 27, 2018 12:00am May 13, 2019 1:55pm take 2 puff(s) by in halation every six hours as needed albuterol 90 mcg/inh inhalation aerosol ; 2 puff(s) inhaled every 6 hours, As Needed Quantity: 0 Refills: 0 Ordered: 27-Oct-2022 Lisa Pugh Generic Substitution Allowed Comment on above: Use 3 mL via nebuliz er one time only for 1 dose. Use over 5-15minutes. Inhale 2 Puffs as in structed four times daily as needed. amLODIPine 5 mg oral tablet (20 sources) Dihydropyridine Calcium Channel [place] Start: 01-12-20 24 End: 11-07-19 25 take 1 tablet by mouth once daily amLODIPine (NORVASC) 5 mg tablet Indications: Essential hypertension Take 1 tablet by mouth once daily. 30 tablet 5 11/07/2024 Active Start: 01-05-2024 End: 01-26-2024 Start: 10-31-2022 End: 01-12-2024 amLODIPine Besyl ate 10 MG Oral Tablet Quantity: 0 Refills: 0 Ordered: 22-Dec-2022 DO Active Comment on above: [facility] ARIPiprazole 5 mg oral tablet (20 sources) Atypical Antipsychotic Start: 01-22-2021 ARIPiprazole (ABILIFY) 5 mg tablet Indications: Moderate episode of recurrent major depressive disorder (HCC) 5 mg once daily. 01/22/2021 Active ARIPiprazole TAB S Quantity: 0 Refills: 0 Ordered: 22-Dec-2022 DO Active Comment on above: Take by mouth. benzonatate 200 mg oral capsule (20 sources) Non-narcotic Antitussive Start: End: take 1 capsule by mouth every eight hours as needed Benzonatate 200 mg capsule Take 200 mg by mouth three times a day as needed. 01/05/2024 Active Start: 03-03-2022 End: 07-18-2022 take 1 capsule by mouth every eight hours as needed benzonatate (TESSALON PERLE) 100 mg capsule Take 100 mg by mouth three times daily as needed. 0 03/03/2022 07/18/2022 Discontinued (Discontinued by Patient) Start: 03-03-2022 take 200 mg by mouth three times daily as needed Benzonatate Active 200 MG PO 3 TIMES DAILY NEEDED March 02, 2022 11:00pm Start: 01-22-2021 take 1 capsule by mo [facility] twice daily Benzonatate (Tessalon Perles) 100 mg capsule Active 100 MG PO TWICE A DAY January 22, 2021 9:57pm Comment on above: Take 100 mg by mouth three times daily as needed. Take 200 mg by mouth three times a day as needed. Blood Pressure Monitor (20 sources) Start: 01-12-2024 Blood Pressure Monitor Indications: Essential hypertension, benign Home blood pressure monitor 1 Each 01/12/2024 Active Start: 01-12-2024 Blood Pressure Monitor Indications: Essential hypertension, benign Home blood pressure monitor 1 Each 0 01/12/2024 Active Comment on above: Home blood pressure monitor Ltuicodbsy-Dtzgxmby-Uwdk oterol (4 sources) Corticosteroid, beta2-Adrenergic Agonist Start: 5 cholecalciferol 0.05 mg oral capsule (20 sources) Vitamin D Start: 9 End: 5 take 1 capsule by mouth once daily Cholecalciferol, Vitamin D3, 50 mcg (2,000 unit) cap Indications: Vitamin D deficiency Take 1 capsule by mouth once daily. 90 capsule 2 10/28/2024 Active Start: 12-29-2018 Cholecalcifero l (Vitamin D3) 2,000 UNIT capsule Active 50 ug PO DAILY December 29, 2018 12:00am Start: 12-29-2018 End: 03-21-2022 take 50 ug by mouth once daily Cholecalciferol (Vitamin D3) Active 50 MCG PO DAILY December 29, 2018 12:00am Cholecalciferol (vitamin D3) 50 MCG (2000 UT) CAPS capsule Take 2,000 Units by mouth. 0 Suspended Comment on above: Take 1 capsule by mo ut once daily. TAKE 1 CAPSULE BY MO [facility] DAILY colchicine 0.6 mg oral tablet (12 sources) Start: 01-13-2025 colchicine 0.6 mg tablet Take 2 pills x1 now then take 1 tablet BID until gone 5 tablet 01/13/2025 Active COMPOUNDED PRESCRIPTION (20 sources) Start: 03-11-2018 COMPOUNDED PRESCRIPTION Indications: Bacterial pneumonia Pulse Oximetry 1 Device 03/11/2018 Active Start: 03-11-2018 COMPOUNDED PRE SCRIPTION Indications: Bacterial pneumonia Pulse Oximetry 1 Device 0 03/11/2018 Active Start: 12-08-2017 COMPOUNDED PRE SCRIPTION Indications: Chronic obstructive pulmonary disease with acute exacerbation (HCC) nebulizer supplies (tubing) 1 Each 5 12/08/2017 Active Comment on above: nebulizer supplies ( tubing) Pulse Oximetry cyclobenzaprine hydrochloride 10 mg oral tablet (20 sources) Muscle Relaxant Start: 04-15-20 23 take 1 tablet by mouth twice daily as needed for muscle spasms cyclobenzaprine (FLEXERIL) 10 mg tablet Indications: Arthralgia of right temporomandibular joint Take 1 tablet by mouth twice daily as needed for muscle spasm. 15 tablet 1 04/15/2023 Active Comment on above: Take 1 tablet by diya twice daily as needed for muscle spasm. dextran 70 1 mg/ml / glycerin 2 mg/ml / hypromellose 3 mg/ml ophthalmic solution (1 source) Plasma Volume Cheerleading Coach, Non-Standardized Chemical Allergen Start: 10-29-19 End: 11-28-19 take 1 drop(s) into the eye(s) four times daily Artificial Tears ophthalmic solution ; 1 drop(s) in each eye 4 times a day PRN.ADOD - 2/1Meds to Beds - .Patient Location [address] 2026 Quantity: 1 Refills: 0 Ordered: 29-Oct-2022 Katina Booker Start: 29-Oct-2022 End: 27-Nov-2022 Generic Substitution Allowed Comments: For the eye. Comment on above: For the eye. doxycycline hyclate 100 mg oral tablet (20 sources) Tetracycline-clas s Drug Start: 08-10-20 End: 08-20-20 take 1 tablet by mouth twice daily doxycycline (VIBRA-TABS) 100 mg tablet Take 1 tablet by mouth two times a day for 10 days. 20 tablet 08/10/2024 08/20/2024 Active Start: 01-25-2024 End: 05-11-2024 Start: 07-08-2023 End: 01-02-2024 Start: 06-02-2023 End: 06-30-2023 Start: 01-16-2022 End: 09-05-2022 take 1 tablet by mouth twice daily Doxycycline Hyclate 100 mg tablet Discontinued 100 mg PO TWICE A DAY January 16, 2022 12:00am September 05, 2022 9:31am Start: 01-22-2021 End: 03-29-2021 Comment on above: Take 1 tablet by diya twice daily for 7 days. enteric contrast (will be provided with radiology test) (1 source) Start: 08-15-2024 End: 08-16-2024 enteric contrast (will be provided with radiology test) Indications: Alcoholic hepatitis without ascites , Upper abdominal pain , Nausea , Elevated lipase , Generalized abdominal tenderness without rebound tenderness For CT ABD/PEL W IVCON Routine order Administer, As Directed One Time Only, via Oral, Rectal, both Oral and Rectal, Enteric Tube, Stoma or Indwelling Catheter, Enteric Contrast as designated per enteric contrast guidelines 1 Each 08/15/2024 08/16/2024 Active ferrous sulfate 140 mg extended release oral tablet (20 sources) Start: 07-12-2021 End: 04-17-2022 take 1 tablet by mouth twice daily at mealtime SLOW RELEASE IRON 159 mg (45 mg iron) TbER TAKE 1 TABLET BY MOUTH TWICE A DAY WITH MEALS 56 tablet 4 07/12/2021 04/17/2022 Discontinued (Discontinued by Patient) Start: 04-15-2021 End: 04-17-2022 take 1 tablet by mouth twice daily at mealtime ferrous sulfate (SLOW FE) 140 mg (45 mg iron) TbER Indications: Iron deficiency Take 1 tablet by mouth twice daily with meals. 60 tablet 3 04/17/2022 Active Comment on above: Take 1 tablet by diya th twice daily with meals. TAKE 1 TABLET BY DIYA TH TWICE A DAY WITH MEALS fluconazole 150 mg oral tablet (6 sources) Azole Antifungal Start: 08-15-2024 End: 08-15-2024 fluconazole (DIFLUCAN) 150 mg tablet Take 1 tablet by mouth one time only for 1 dose. Repeat in 3 days as needed. 2 tablet 08/15/2024 08/15/2024 Active Start: 01-25-2024 End: 01-25-2024 fluconazole (DIFLUCAN) 150 m g tablet Indications: Pneumonia due to infectious organism, unspecified laterality, unspecified part of lung , Acute right ankle pain Take 1 tablet by mouth one time only for 1 dose. Repeat in 3 days as needed. 2 tablet 01/25/2024 01/25/2024 Start: 01-06-2024 End: 01-06-2024 take 1 tablet by mouth once fluconazole (DIFLUCAN) 150 mg tablet Take 1 tablet by mouth one time only for 1 dose. 1 tablet 0 01/06/2024 01/06/2024 Start: 06-25-2022 End: 06-25-2022 take 1 tablet by mouth once fluconazole (DIFLUCAN) 150 mg tablet Take 1 tablet by mouth one time only for 1 dose. 1 tablet 0 06/25/2022 06/25/2022 Active Start: 03-11-2022 End: 03-11-2022 take 1 tablet by mouth once fluconazole (DIFLUCAN) 150 mg tablet Take 1 tablet by mouth one time only for 1 dose. 1 tablet 0 03/11/2022 03/11/2022 Active Comment on above: Take 1 tablet by diya one time only for 1 dose. gabapentin 300 mg oral capsule (16 sources) Anti-epileptic Agent Start: 02-17-2025 End: 03-19-2025 take 1 capsule by mouth three times daily gabapentin (NEURONTIN) 300 mg capsule Take 1 capsule by mouth three times a day for 30 days. 90 capsule 02/17/2025 03/19/2025 Active Start: 01-09-2025 End: 03-05-2025 12 hr guaiFENesin 600 mg extended release oral tablet (7 sources) Start: 06-19-2020 End: 04-17-2022 take 2 tablets by mouth twice daily guaiFENesin (MUCINEX) 600 mg 12 hr tablet Take 2 tablets by mouth twice daily. 0 06/19/2020 04/17/2022 Discontinued (Discontinued by Patient) Comment on above: Take 2 tablets by mo [facility] twice daily. 12 hr guaiFENesin 1200 mg / pseudoephedrine hydrochloride 120 mg extended release oral tablet (20 sources) alpha-Adrenerg ic Agonist Start: 11-07-2024 take 120-1200 mg by mouth every twelve hours as needed MUCINEX D MAXIMUM STRENGTH 120-1,200 mg tab ER 12 hr Indications: Cough with sputum Take 1 tablet by mouth as needed. 30 tablet 11/07/2024 Active Start: 01-05-2024 End: 11-07-2024 MUCINEX D MAXIMUM STRENGTH 1 20-1,200 mg tab ER 12 hr as needed. 01/05/2024 11/07/2024 Discontinued Start: 01-05-2024 End: 01-26-2024 Start: 01-05-2024 End: 01-26-2024 take 120-1200 mg by mouth every twelve hours Pseudoephedrine-Guaifenesin (Mucinex D Maximum Strength) 120-1,200 mg tablet extended release 12 hr Discontinued 1 {tbl} PO Q12H 14 7 January 05, 2024 12:00am January 26, 2024 11:51am Comment on above: TAKE 1 TABLET BY DIYA EVERY 12 HOURS for cold SYMPTOMS hydrOXYzine hydrochloride 25 mg oral tablet (20 sources) Antihistamine Start: 11-07-19 take 1 tablet by mouth every eight hours as needed hydrOXYzine HCl (ATARAX) 25 mg tablet Take 1 tablet by mouth three times a day as needed for itching/rash. 90 tablet 3 11/07/2024 Active Start: 10-28-2022 End: 11-04-2022 take 1 tablet by mouth every six hours as needed hydrOXYzine hydrochloride 25 mg oral tablet ; 1 tab(s) orally every 6 hours, As needed, ITCHING-.ADOD - .10/28Meds to Beds .Patient Location [address] [address]PRN Reason: Anxiety Quantity: 32 Refills: 0 Ordered: 28-Oct-2022 Donn Trammell Start: 28-Oct-2022 End: 04-Nov-2022 Generic Substitution Allowed Start: 06-12-2021 End: 12-23-2024 take 1 capsule by mouth once daily at bedtime hydrOXYzine pamoate (VISTARIL) 25 mg capsule Take 1 capsule by mouth daily at bedtime. 30 capsule 11 04/15/2024 Active Start: 06-12-2021 take 25 mg by mouth every six hours as needed Hydroxyzine Pamoate Active 25 MG PO EVERY 6 HOURS NEEDED June 12, 2021 12:00am Start: 04-19-2019 End: 09-26-2019 Start: 04-19-2019 End: 09-26-2019 Hydroxyzine Pamoate 25 capsu le Discontinued 25 mg PO 3 TIMES DAILY NEEDED as needed for Anxiety April 19, 2019 12:00am September 26, 2019 12:38pm hydrOXYzine HCl - 50 MG Oral Tablet Quantity: 0 Refills: 0 Ordered: 22-Dec-2022 DO Active take 1 capsule by mo uth four times daily as needed for anxiety hydrOXYzine pamoate (VISTARIL) 25 MG capsule Take 25 mg by mouth 4 times daily as needed for Anxiety. 0 Suspended Comment on above: Take 1 capsule by mo uth daily at bedtime. TAKE 1 CAPSULE BY MO UTH AT BEDTIME iv contrast (will be provided with radiology test) (1 source) Start: 4 End: 4 iv contrast (will be provided with radiology test) Indications: Alcoholic hepatitis without ascites , Upper abdominal pain , Nausea , Elevated lipase , Generalized abdominal tenderness without rebound tenderness CT ABD/PEL -Inject, intravenously, once for 1 dose.No IV access, insert saline lock prior to the beginning of sedation, infusion, injection of imaging exam. Discontinue saline lock post exam. If Pt. has a central line or IVAD, may access for administration according to line specific nursing protocol. Once exam is complete flush line and de-access according to line specific nursing protocol in the CT contrast administration guidelines link. 1 Each 08/15/2024 08/16/2024 Active lisinopril 10 mg oral tablet (20 sources) Angiotensin Converting Enzyme Inhibitor Start: End: take 1 tablet by mouth once daily lisinopril (ZESTRIL) 10 mg tablet Take 1 tablet by mouth once daily. 30 tablet 11 04/15/2024 Active Start: 08-12-2020 End: 01-16-2022 Start: 08-12-2020 End: 01-16-2022 take 10 mg by mouth once daily Lisinopril Discontinued 10 MG PO DAILY August 12, 2020 1:00am January 16, 2022 9:32am Start: 10-29-2015 End: 02-05-2019 Lisinopril 20 MG Oral Tablet Quantity: 0 Refills: 0 Ordered: 22-Dec-2022 DO Active Comment on above: Take 1 tablet by diya th once daily. melatonin 10 mg extended release oral tablet (20 sources) Start: 01-16-2022 End: 07-18-2022 take 10 mg by mouth once daily Melatonin Active 10 MG PO DAILY January 15, 2022 11:00pm Start: 04-19-2019 End: 09-26-2019 Start: 04-19-2019 End: 09-26-2019 take 10-15 mg by mouth at bedtime as needed for sleep Melatonin 10 mg capsule Discontinued 10 - 15 mg PO AT BEDTIME as needed for Sleep April 19, 2019 12:00am September 26, 2019 12:38pm Start: 04-19-2019 End: 09-26-2019 take 10-15 mg by mouth at bedtime Melatonin Discontinued 10 - 15 MG PO AT BEDTIME April 19, 2019 12:00am September 26, 2019 12:38pm meloxicam 7.5 mg oral tablet (20 sources) Nonsteroidal Anti-inflammatory Drug Start: 12-23-2024 Start: 07-18-2022 End: 10-31-2022 take 15 mg by mouth once daily Meloxicam Active 15 MG PO DAILY October 19, 2022 12:00am Start: 04-17-2022 End: 07-18-2022 take 1 tablet by mouth once daily at mealtime meloxicam (MOBIC) 7.5 mg tablet Take 1 tablet by mouth once daily. Take with food. 30 tablet 1 05/22/2022 07/18/2022 Discontinued Meloxicam 15 MG Oral Tablet Quantity: 0 Refills: 0 Ordered: 22-Dec-2022 DO Active Comment on above: Take 1 tablet by diya th once daily. Take with food. Take 1 tablet by diya th once daily. With food. metoprolol tartrate 25 mg oral tablet (20 sources) beta-Adrenergic [place] Start: 01-05-2024 End: 11-07-2025 take 1 tablet by mouth twice daily metoprolol tartrate, short acting, (LOPRESSOR) 25 mg tablet Indications: Essential hypertension Take 1 tablet by mouth two times a day. 180 tablet 3 11/07/2024 11/07/2025 Active Start: 01-05-2024 Metoprolol Tar trate 25 mg Tablet Active 25 mg PO TWICE A DAY 60 January 05, 2024 12:00am Hold for heart less than 50 or systolic blood pressure less than 100 mmHg. Comment on above: Take 1 tablet by diya th two times a day. Take 25 mg by mouth. (hold for heart rate less then 50 or systolic blood pressure less than 100 mmHG. mirtazapine 45 mg oral tablet (20 sources) Start: 01-16-2022 mirtazapine (REMERON) [address] tablet Pres[address] Talamantes. 04/17/2022 Active Start: 08-12-2020 End: 01-16-2022 Start: 08-12-2020 End: 01-16-2022 take 3 tablets by mouth at bedtime Mirtazapine 15 MG tablet,disintegrating Discontinued 45 mg PO AT BEDTIME August 12, 2020 1:00am January 16, 2022 9:33am Start: 08-12-2020 End: 01-16-2022 take 45 mg by mouth at bedtime Mirtazapine Discontinue d 45 MG PO AT BEDTIME August 12, 2020 1:00am January 16, 2022 9:33am Mirtazapine 30 M G Oral Tablet Disintegrating Quantity: 0 Refills: 0 Ordered: 22-Dec-2022 DO Active Comment on above: Prescribed by Dr. Tai sales. multivitamin tablet (20 sources) Start: take 1 tablet by mouth once daily multivitamin tablet Take 1 tablet by mouth once daily. 30 tablet 04/18/2021 Active Comment on above: Take 1 tablet by diya th once daily. 24 hr nicotine 0.583 mg/hr transdermal system (14 sources) Cholinergic Nicotinic Agonist Start: Start: 01-05-2024 End: 01-19-2024 Start: 01-05-2024 End: 01-19-2024 Nicotine Discontinued 21 MG TD DAILY January 05, 2024 12:00am January 19, 2024 11:42pm Start: 10-29-2022 End: 11-11-2022 Nicoderm C-Q Clear 21 mg/24 hr transdermal film, extended release ; 1 patch transdermally once a day -.ADOD - 10/29/22.Meds to Beds - .Patient Location [address] [address] Quantity: 14 Refills: 0 Ordered: 29-Oct-2022 Katina Booker Start: 29-Oct-2022 End: 11-Nov-2022 Generic Substitution Allowed Comments: Do not take this drug if you are .For external use only.It is very important that you take or use this exactly as directed. Do not skip doses or discontinue unless directed by your doctor.Remove old patch prior to applying a new patch. Comment on above: Do not take this jennifer g if you are .For external use only.It is very important that you take or use this exactly as directed. Do not skip doses or discontinue unless directed by your doctor.Remove old patch prior to applying a new patch. ondansetron 4 mg disintegrating oral tablet (20 sources) Serotonin-3 Receptor Antagonist Start: 04-17-20 End: 01-03-20 take 1 tablet by mouth every six hours as needed for nausea and nausea ondansetron orally disintegrating (ZOFRAN ODT) 4 mg disintegrating tablet Indications: Nausea Take 1 tablet by mouth every 6 hours as needed for nausea/vomiting. 30 tablet 1 01/02/2025 Active Start: 06-19-2020 End: 04-17-2022 take 1 tablet by mouth every eight hours as needed for nausea ondansetron (ZOFRAN) 4 mg tablet Indications: Nausea and vomiting, intractability of vomiting not specified, unspecified vomiting type Take 1 tablet by mouth every 8 hours as needed for Nausea/Vomiting. 40 tablet 1 06/19/2020 04/17/2022 Discontinued (Discontinued by Patient) Start: 10-01-2017 End: 02-27-2018 Start: 10-01-2017 End: 02-27-2018 take 1 tablet by mouth every eight hours as needed for nausea Ondansetron 4 MG tablet Discontinued 4 mg PO EVERY 8 HOURS NEEDED as needed for Nausea October 01, 2017 1:00am February 27, 2018 10:47pm Start: 10-13-2013 End: 10-25-2013 Start: 10-13-2013 End: 10-25-2013 take 1 tablet by mouth every four hours as needed for nausea Ondansetron 4 MG tablet Discontinued 4 mg PO EVERY 4 HOURS NEEDED as needed for Nausea October 13, 2013 4:32pm October 25, 2013 7:49am Comment on above: Take 1 tablet by diya th every 8 hours as needed for Nausea/Vomiting. Take 1 tablet by diya th every 6 hours as needed for nausea/vomiting. OXYGEN, HOME THERAPY, (20 sources) OXYGEN, HOME THE RAPY, Inhale as instructed as directed. Patient is on 2-3 liters Active OXYGEN, HOME THE RAPY, Inhale as instructed as directed. Patient is on 2-3 liters 0 Active Comment on above: Inhale as instructed as directed. Patient is on 2-3 liters pantoprazole 40 mg delayed release oral tablet (20 sources) Proton Pump Inhibitor Start: 0 End: 5 take 1 tablet by mouth once daily pantoprazole DR (PROTONIX) 40 mg tablet Take 1 tablet by mouth once daily. 90 tablet 2 11/21/2024 Active Pantoprazole Sod ium 40 MG Oral Tablet Delayed Release Quantity: 0 Refills: 0 Ordered: 22-Dec-2022 DO Active take 40 mg by mouth once daily p antoprazole (PROTONIX) 40 MG PACK oral packet Take 40 mg by mouth daily. 0 Suspended Comment on above: TAKE 1 TABLET BY DIYA TH DAILY Take 1 tablet by diya th once daily. predniSONE 20 mg oral tablet (20 sources) Start: 06-02-2024 End: 12-16-2024 take 2 tablets by mouth once daily predniSONE (DELTASONE) 20 mg tablet Take 2 tablets by mouth once daily. 5 tablet 08/10/2024 Active Start: 01-05-2024 End: 01-19-2024 Start: 01-05-2024 End: 01-19-2024 Prednisone Discontinued 10 M G PO DAILY January 05, 2024 12:00am January 19, 2024 11:42pm 40 mg for 3 days 30 mg for 3 days, 20 mg for 3 days,and 10 mg for 3 days Start: 07-08-2023 End: 01-02-2024 Start: 07-08-2023 End: 01-02-2024 take 40 mg by mouth once daily Prednisone Discontinued 40 MG PO DAILY July 08, 2023 12:00am January 02, 2024 10:46pm Start: 11-07-2022 End: 06-30-2023 Start: 11-07-2022 End: 06-30-2023 take 40 mg by mouth at breakfast Prednisone Discontinu ed 40 MG PO WITH BREAKFAST November 07, 2022 1:00am June 30, 2023 2:49pm Start: 08-22-2022 End: 09-05-2022 Start: 03-03-2022 End: 09-05-2022 Start: 03-03-2022 End: 09-05-2022 take 3 tablets by mouth once daily Prednisone 20 MG tablet Discontinued 60 mg PO DAILY March 03, 2022 12:00am September 05, 2022 9:32am Start: 03-03-2022 End: 09-05-2022 take 60 mg by mouth once daily Prednisone Discontinued 60 MG PO DAILY March 03, 2022 12:00am September 05, 2022 9:32am Start: 01-16-2022 End: 09-05-2022 Start: 01-22-2021 End: 03-29-2021 Start: 01-22-2021 End: 03-29-2021 take 40 mg by mouth once daily Prednisone Discontinued 40 MG PO DAILY January 22, 2021 12:00am March 29, 2021 11:16am Start: 05-13-2019 End: 07-12-2019 predniSONE 20 MG Oral Tablet Quantity: 0 Refills: 0 Ordered: 22-Dec-2022 DO Active simvastatin 20 mg oral tablet (20 sources) HMG-CoA Reductase Inhibitor Start: 09-18-2021 End: 01-24-2025 take 1 tablet by mouth once daily at bedtime simvastatin (ZOCOR) 20 mg tablet Indications: Hyperlipidemia, unspecified hyperlipidemia type Take 1 tablet by mouth daily at bedtime. 30 tablet 11 01/24/2025 Active Simvastatin 20 M G Oral Tablet Quantity: 0 Refills: 0 Ordered: 22-Dec-2022 DO Active Comment on above: Take 1 tablet by diya th daily at bedtime. TAKE 1 TABLET BY DIYA TH AT BEDTIME suvorexant 10 mg oral tablet (13 sources) Orexin Receptor Antagonist Start: 4 End: 5 take 1 tablet by mouth once daily suvorexant 10 mg tab Indications: Insomnia, unspecified type Take 1 tablet by mouth once daily for 90 days. 30 tablet 2 08/05/2024 11/03/2024 Active terconazole 8 mg/ml vaginal cream (2 sources) Azole Antifungal Start: 3 End: 3 terconazole vaginal cream (TERAZOL) 0.8 % vaginal cream Use 1 Applicator vaginally daily at bedtime for 3 days. 20 g 0 07/10/2023 07/13/2023 Active Comment on above: Use 1 Applicator vag inally daily at bedtime for 3 days. traMADol hydrochloride 50 mg oral tablet (20 sources) Opioid Agonist Start: 5 Start: 12-19-2024 End: 12-22-2024 take 1 tablet by mouth every six hours as needed for pain traMADol (ULTRAM) 50 mg tablet Indications: Chronic recurrent pancreatitis (HCC) , Hospital discharge follow-up Take 1 tablet by mouth every 6 hours as needed for pain for up to 3 days. 6 tablet 12/19/2024 12/22/2024 Active Start: 12-12-2024 Start: 01-05-2024 End: 01-26-2024 Start: 08-22-2022 End: 01-02-2024 Start: 08-22-2022 End: 01-19-2024 take 1 tablet by mouth every eight hours as needed for pain Tramadol 50 mg tablet Discontinued 50 mg PO Q8H as needed for pain 10 January 04, 2024 12:00am January 19, 2024 11:42pm Start: 08-22-2022 End: 01-28-2024 take 1 tablet by mouth twice daily as needed for pain traMADol (ULTRAM) 50 mg tablet Indications: Pneumonia due to infectious organism, unspecified laterality, unspecified part of lung , Acute right ankle pain Take 1 tablet by mouth two times a day as needed for pain for up to 3 days. 6 tablet 01/25/2024 01/28/2024 Comment on above: Take by mouth. ziprasidone 40 mg oral capsule (20 sources) Atypical Antipsychotic Start: take 1 capsule by mouth every twenty-four hours as needed ziprasidone (GEODON) 40 mg capsule Take 1 capsule by mouth at bedtime as needed. 30 capsule 08/05/2024 Active Start: 04-17-2022 End: 05-18-2024 ziprasidone (GEODON) 20 mg c apsule Patient unsure on dosage - prescribed by Dr. Talamantes. 04/17/2022 05/18/2024 Discontinued Comment on above: Patient unsure on do berto - prescribed by Dr. Talamantes. (19 sources) Start: 12-30-2024 Start: 12-23-2024 Start: 12-16-2024 Start: 01-16-2022 End: 09-05-2022 Start: 12-31-2018 End: 01-30-2019 Completed/Discontinued Medications Medication Drug Class(es) Dates Sig (Normalized) Sig (Original) acetaminophen 325 mg / HYDROcodone bitartrate 5 mg oral tablet (20 sources) Opioid Agonist Start: 07-31-2020 End: 08-02-2020 Start: 07-31-2020 End: 08-02-2020 Hydrocodone-Acetaminophen 1 TABLET tablet Discontinued 1 {tbl} PO EVERY 4 HOURS NEEDED as needed for Pain 06 29July 31, 2020 August 01, 2020 1:00am August 02, 2020 1:02am Start: 07-31-2020 End: 08-02-2020 take 1 tablet by mouth every four hours as needed Hydrocodone-Acetaminophen Discontinued 1 TABLET PO EVERY 4 HOURS NEEDED 06 29July 31, 2020 August 02, 2020 1:02am Start: 07-28-2013 End: 09-12-2013 Start: 07-28-2013 End: 09-12-2013 Hydrocodone-Acetaminophen 1 TABLET tablet Discontinued 1 - 2 {tbl} PO EVERY 4 HOURS NEEDED as needed for Pain July 28, 2013 12:00am September 12, 2013 3:26pm Start: 07-28-2013 End: 09-12-2013 take 1 tablet by mouth every four hours as needed Hydrocodone-Acetaminophen Discontinued 1 - 2 TABLET PO EVERY 4 HOURS NEEDED July 28, 2013 12:00am September 12, 2013 3:26pm acetaminophen 325 mg / oxyCO DONE hydrochloride 5 mg oral tablet (16 sources) Opioid Agonist Start: 06-15-2021 End: 01-16-2022 Start: 06-15-2021 End: 01-16-2022 Oxycodone-Acetaminophen (End ocet) 5-325 mg tablet Discontinued 1 {tbl} PO EVERY 6 HOURS as needed for pain 14 02June 15, 2021 January 16, 2022 9:33am 20 ml albumin human, fpc 250 mg/ml injection (1 source) Human Serum Albumin Start: 03-10-2025 End: 03-10-2025 25 g, INTRAVENOUS, at 120 mL/hr, ONCE, 1 dose, On Thu03/10/25 at 1600, Recovery or Phase I (only) Start: 03-10-2025 End: 03-10-2025 25 g, INTRAVENOUS, at 120 mL /hr, ONCE, 1 dose, On Thu03/10/25 at 1600, Recovery or Phase I (only) albuterol 0.833 mg/ml / ipratropium bromide 0.167 mg/ml inhalation solution (20 sources) Anticholinergic, beta2-Adrenergic Agonist Start: 01-05-2024 End: 01-04-2025 Start: 01-05-2024 End: 01-26-2024 take 1 mL by inhalation every four hours as needed for wheezing Ipratropium-Albuterol 0.5 mg-3 mg(2.5 mg base)/3 mL solution for nebulization Active 3 mL INHALATION Q4H as needed for shortness of breath or wheezing January 26, 2024 11:28am until breathing returns to target peak flow/parameters Start: 01-05-2024 take 1 mL by inhalat ion every four hours Ipratropium-Albuterol Active 3 ML INHALATION Q4H 90 January 05, 2024 12:00am until breathing returns to target peak flow/parameters amylase 555699 unt / lipase [id number] unt / protease [id number] unt delayed release oral capsule (20 sources) Start: 11-01-2022 take [id number] capsules by mouth three times daily at mealtime Ymmemk-Xqfarixu-Axirryj (Creon) 24,000-76,000 -120,000 unit capsule,delayed release(DR/EC) Active 1 CAP PO 3 TIMES DAILY WITH MEALS November 01, 2022 1:00am Start: 03-26-2021 End: 01-26-2024 take [id number] capsules by mouth twice daily Mrmpmm-Vkpmrozv-Hykiqnh (Creon) 24,000-76,000 -120,000 unit capsule,delayed release(DR/EC) Discontinued 2 NMA PO TWICE A DAY November 01, 2022 1:00am January 26, 2024 11:52am Start: 12-10-2019 End: 12-19-2024 Start: 12-10-2019 Lipase-Proteas e-Amylase Active 3 EACH PO TWICE A DAY December 10, 2019 6:59am Comment on above: Take 3 capsules by m outh twice daily with meals. Take 3 capsules by m outh once daily. Lgpjoyv-Gptqbn-Ysbmmsms (CREON 10 ORAL) (1 source) Nzccfnk-Nvbzer-A rotea se (CREON 10 ORAL) Take 24,000 Units by mouth. 0 Suspended atropine sulfate 0.025 mg / diphenoxylate hydrochloride 2.5 mg oral tablet (16 sources) Anticholinergic, Cholinergic Muscarinic Antagonist, Antidiarrheal Start: 10-13-2013 End: 10-28-2013 Start: 10-13-2013 End: 10-28-2013 Diphenoxylate-Atropine (Lomo til 2.5-0.025 Mg Tablet) 1 EACH tablet Discontinued 1 NMA PO 4 TIMES DAILY NEEDED as needed for Diarrhea October 13, 2013 1:00am October 28, 2013 12:28pm azithromycin 250 mg oral tablet (16 sources) Macrolide Antimicrobial Start: 05-13-2019 End: 07-12-2019 Budesonide-Formoter ol (16 sources) Corticosteroid, beta2-Adrenergic Agonist Start: 11-14-2020 End: 03-29-2021 take 1 puff(s) by mouth twice daily Budesonide-Formote rol (Symbicort) 160-4.5 mcg/actuation HFA aerosol inhaler Discontinued 2 PUFF INHALATION TWICE A DAY 1 November 14, 2020 12:07pm March 29, 2021 11:33am administer with spacer, rinse mouth after each use Start: 11-14-2020 End: 03-29-2021 Start: 11-14-2020 End: 03-29-2021 Budesonide-Formoterol (Symbi geronimo) 160-4.5 mcg/actuation HFA aerosol inhaler Discontinued 2 NMA INHALATION TWICE A DAY 1 November 14, 2020 1:00am March 29, 2021 11:33am administer with spacer, rinse mouth after each use Start: 11-14-2020 End: 03-29-2021 take 1 puff(s) by mouth twice daily Budesonide-Formoterol (Symbicort) 160-4.5 mcg/actuation HFA aerosol inhaler Discontinued 2 PUFF INHALATION TWICE A DAY 1 November 14, 2020 12:00am March 29, 2021 10:33am administer with spacer, rinse mouth after each use Start: 11-14-2020 End: 03-29-2021 take 1 puff(s) by mouth twice daily Budesonide-Formoterol (Symbicort) 160-4.5 mcg/actuation HFA aerosol inhaler Discontinued 2 PUFF INHALATION TWICE A DAY 1 November 14, 2020 1:00am March 29, 2021 11:33am administer with spacer, rinse mouth after each use busPIRone hydrochloride 10 mg oral tablet (20 sources) Start: 01-01-2021 End: 04-15-2023 take 1 tablet by mouth three times daily busPIRone (BUSPAR) 10 mg tablet Indications: MICKEY (generalized anxiety disorder) Take 1 tablet by mouth three times daily. 90 tablet 1 01/01/2021 04/15/2023 Discontinued Start: 07-19-2020 End: 07-19-2020 Start: 07-19-2020 End: 07-19-2020 take 2 tablets by mouth twice daily Buspirone 5 mg tablet Discontinued 10 mg PO TWICE A DAY July 19, 2020 8:59am July 19, 2020 9:00am Start: 07-19-2020 End: 07-19-2020 take 1 tablet by mouth twice daily Buspirone 5 mg tablet Discontinued 5 mg PO TWICE A DAY July 19, 2020 12:00am July 19, 2020 9:00am Comment on above: Take 1 tablet by diya th three times daily. calcium chloride 0.0014 meq/ml / potassium chloride 0.004 meq/ml / sodium chloride 0.103 meq/ml / sodium lactate 0.028 meq/ml injectable solution (1 source) Start: 2024 End: 2024 take 150 mL intravenously every hour 150 mL/hr, INTRAVENOUS, CONTINUOUS, Starting on Thu03/10/25 at 1400, Until 03/11/25 at 0415, Preprocedure dicyclomine hydrochloride 10 mg oral capsule (16 sources) Anticholinergic Start: 2018 End: 2019 Start: 07-16-2019 End: 04-06-2020 take 20 mg by mouth three times daily before mealtime Dicyclomine Discontinued 20 MG PO THREE TIMES DAILY BEFORE MEALS July 16, 2019 12:00am April 06, 2020 11:52am Ear Thermometer misc (20 sources) Start: 12-19-2019 End: 04-15-2023 Ear Thermometer misc 1 Each once daily as needed. 1 Each 12/19/2019 04/15/2023 Discontinued Start: 12-19-2019 End: 04-15-2023 Ear Thermometer misc 1 Each once daily as needed. 1 Each 0 12/19/2019 04/15/2023 Discontinued Start: 12-19-2019 Ear Thermomete r misc 1 Each once daily as needed. 1 Each 0 12/19/2019 Active Comment on above: 1 Each once daily as needed. erythromycin 0.005 mg/mg ophthalmic ointment (14 sources) Macrolide, Macrolide Antimicrobial Start: 023 End: escitalopram 10 mg oral tablet (5 sources) Serotonin Reuptake Inhibitor Start: 024 End: take 1 tablet by mouth once daily, then take 0.5 tablet by mouth once daily, then take 1 tablet by mouth once daily escitalopram oxalate (LEXAPRO) 10 mg tablet Indications: Anxiety Take 1 tablet by mouth once daily. Please take half a pill a day for 7days and then go on to a full pill a day 30 tablet 5 05/18/2024 08/05/2024 Discontinued Flucelvax Quad (flu vac qs (6 ms up) CD) 60 mcg (15 mcg x (1 source) Start: End: inject 15 ug by intramuscular injection once Flucelvax Quad (flu vac qs (6 ms up) CD) 60 mcg (15 mcg x Discontinued 60 MCG IM ONCE 0.5 August 30, 2021 11:53am August 30, 2021 12:26pm Fluticasone Propion-Salmeterol (16 sources) Corticosteroid, beta2-Adrenergic Agonist Start: End: Fluticasone Propion-Salmeterol (Advair Diskus) 500-50 mcg/dose blister with device Discontinued 1 INH INHALATION TWICE A DAY 60 December 20, 2019 12:53pm April 05, 2020 10:01am Start: 12-20-2019 End: 04-05-2020 Start: 12-20-2019 End: 04-05-2020 Fluticasone Propion-Salmeter ol (Advair Diskus) 500-50 mcg/dose blister with device Discontinued 1 NMA INHALATION TWICE A DAY 60 December 20, 2019 12:00am April 05, 2020 10:01am Start: 12-20-2019 End: 04-05-2020 Fluticasone Propion-Salmeter ol (Advair Diskus) 500-50 mcg/dose blister with device Discontinued 1 INH INHALATION TWICE A DAY 60 December 19, 2019 11:00pm April 05, 2020 9:01am Start: 12-20-2019 End: 04-05-2020 Fluticasone Propion-Salmeter ol (Advair Diskus) 500-50 mcg/dose blister with device Discontinued 1 INH INHALATION TWICE A DAY 60 December 20, 2019 12:00am April 05, 2020 10:01am Yiqznrurdhi-Pjpjpmmkc-Jhimdh er (20 sources) Anticholinergic, Corticosteroid, beta2-Adrenergic Agonist Start: 06-30-2023 End: 01-26-2024 Start: 06-30-2023 End: 01-26-2024 Evrgjhymdpr-Fjjdkgstu-Msewnd er (Trelegy Ellipta) 100-62.5-25 mcg blister with device Discontinued 1 NMA INHALATION Q24June 30, 2023 12:00am January 26, 2024 11:27am Start: 06-30-2023 Fluticasone-Um eclidin-Vilanter (Trelegy Ellipta) 100-62.5-25 mcg blister with device Active 1 INH INHALATION Q24June 30, 2023 12:00am Start: 09-10-2021 Fluticasone-Um eclidin-Vilanter (Trelegy Ellipta) 100-62.5-25 mcg blister with device Active 1 INH INHALATION DAILY 60 September 10, 2021 9:54am Start: 09-10-2021 Fluticasone-Um eclidin-Vilanter (Trelegy Ellipta) 100-62.5-25 mcg blister with device Active 1 INH INHALATION DAILY 60 September 10, 2021 10:54am Start: 06-12-2021 End: 09-10-2021 Start: 06-12-2021 End: 09-10-2021 Ngpqlzyfyzz-Tozmfbgjz-Ifhmre er (Trelegy Ellipta) 100-62.5-25 mcg blister with device Discontinued 1 NMA INHALATION DAILY June 12, 2021 2:44am September 10, 2021 10:54am Start: 06-12-2021 End: 09-10-2021 Zthxcwsmqrz-Gsujmmggp-Tddhpf er (Trelegy Ellipta) 100-62.5-25 mcg blister with device Discontinued 1 INH INHALATION DAILY June 12, 2021 1:44am September 10, 2021 9:54am Start: 06-12-2021 End: 09-10-2021 Sptckphakqw-Udjmvasly-Maxtbe er (Trelegy Ellipta) 100-62.5-25 mcg blister with device Discontinued 1 INH INHALATION DAILY June 12, 2021 2:44am September 10, 2021 10:54am Start: 03-29-2021 End: 06-12-2021 Wutydvnvtuw-Gidhbxonu-Fkpswh er (Trelegy Ellipta) 100-62.5-25 mcg blister with device Discontinued 1 INH INHALATION DAILY 60 March 29, 2021 11:35am June 12, 2021 2:44am Start: 03-29-2021 End: 06-12-2021 Start: 03-29-2021 End: 06-12-2021 Rekijircgmm-Jvgtaurxd-Oghmxu er (Trelegy Ellipta) 100-62.5-25 mcg blister with device Discontinued 1 NMA INHALATION DAILY 60 March 29, 2021 12:00am June 12, 2021 2:44am Start: 03-29-2021 End: 06-12-2021 Filkpfvgalk-Wkufublne-Okfmpj er (Trelegy Ellipta) 100-62.5-25 mcg blister with device Discontinued 1 INH INHALATION DAILY 60 March 28, 2021 11:00pm June 12, 2021 1:44am Start: 03-29-2021 End: 06-12-2021 Qxvcqankzlo-Zbpmhkejr-Xrkjkb er (Trelegy Ellipta) 100-62.5-25 mcg blister with device Discontinued 1 INH INHALATION DAILY 60 March 29, 2021 12:00am June 12, 2021 2:44am Start: 04-06-2020 End: 04-15-2023 fsucyqaklzt-sprmxnqgs-hsuglb er (TRELEGY ELLIPTA) 100-62.5-25 mcg inhalation powder DAILY 04/06/2020 04/15/2023 Discontinued Comment on above: DAILY Fluticasone Furoate-Vilanterol (16 sources) Corticosteroid, beta2-Adrenergic Agonist Start: 06-16-2019 End: 12-20-2019 Fluticasone Furoate-Vilanterol (Breo Ellipta) 200-25 mcg/dose blister with device Discontinued 1 INH INHALATION daily 60 June 16, 2019 9:35am December 20, 2019 12:53pm after inhalation, rinse mouth with water and spit out; do not swallow Start: 06-16-2019 End: 12-20-2019 Start: 06-16-2019 End: 12-20-2019 Fluticasone Furoate-Vilanter ol (Breo Ellipta) 200-25 mcg/dose blister with device Discontinued 1 NMA INHALATION daily 60 June 16, 2019 12:00am December 20, 2019 12:53pm after inhalation, rinse mouth with water and spit out; do not swallow Start: 06-16-2019 End: 12-20-2019 Fluticasone Furoate-Vilanter ol (Breo Ellipta) 200-25 mcg/dose blister with device Discontinued 1 INH INHALATION daily 60 June 15, 2019 11:00pm December 20, 2019 11:53am after inhalation, rinse mouth with water and spit out; do not swallow Start: 06-16-2019 End: 12-20-2019 Fluticasone Furoate-Vilanter ol (Breo Ellipta) 200-25 mcg/dose blister with device Discontinued 1 INH INHALATION daily 60 June 16, 2019 12:00am December 20, 2019 12:53pm after inhalation, rinse mouth with water and spit out; do not swallow Hyvkiuurdbz-Qxoqpkmco-Zyuroy er (20 sources) Start: 08-29-2024 End: 12-23-2024 Start: 08-29-2024 Fluticasone-Um eclidin-Vilanter (Trelegy Ellipta) 200-62.5-25 mcg blister with device Active 1 NMA INHALATION DAILY 3 August 29, 2024 10:29am Start: 05-11-2024 End: 08-29-2024 Start: 05-11-2024 End: 08-29-2024 Evdlhnnxmew-Rtiifurxr-Dszthw er (Trelegy Ellipta) 200-62.5-25 mcg blister with device Discontinued 1 NMA INHALATION DAILY 3 May 11, 2024 1:32pm August 29, 2024 10:29am Start: 01-26-2024 End: 05-11-2024 Start: 01-26-2024 End: 05-11-2024 Lyqgullcker-Atoaoqkuq-Xcglby er (Trelegy Ellipta) 200-62.5-25 mcg blister with device Discontinued 1 NMA INHALATION DAILY 60 January 26, 2024 12:00am May 11, 2024 1:33pm Food Supplemt, Lactose-Reduced (Ensure Enlive) 120 ML Liquid (12 sources) Start: 12-31-2018 End: 01-30-2019 take 1 mL by mouth four times daily Food Supplemt, Lactose-Reduced (Ensure Enlive) 120 ML Liquid Discontinued 120 ML PO 4 TIMES DAILY December 31, 2018 8:39am January 30, 2019 12:08am Start: 12-31-2018 End: 01-30-2019 take 1 mL by mouth four times daily Food Supplemt, Lactose-Reduced (Ensure Enlive) 120 ML Liquid Discontinued 120 mL PO 4 TIMES DAILY December 31, 2018 12:00am January 29, 2019 12:00am January 30, 2019 12:08am Start: 12-31-2018 End: 01-30-2019 take 1 mL by mouth four times daily Food Supplemt, Lactose-Reduced (Ensure Enlive) 120 ML Liquid Discontinued 120 ML PO 4 TIMES DAILY December 30, 2018 11:00pm January 29, 2019 11:08pm Start: 12-31-2018 End: 01-30-2019 take 1 mL by mouth four times daily Food Supplemt, Lactose-Reduced (Ensure Enlive) 120 ML Liquid Discontinued 120 ML PO 4 TIMES DAILY December 31, 2018 12:00am January 30, 2019 12:08am hydroCHLOROthiazide 12.5 mg oral capsule (10 sources) Thiazide Diuretic Start: 01-05-2024 End: 12-16-2024 Start: 01-05-2024 Hydrochlorothi azide 12.5 mg Capsule Active 12.5 mg PO WITH BREAKFAST January 05, 2024 12:00am Hold for SBP less than 130 mmHg Comment on above: TAKE 1 CAPSULE BY MO [facility] EVERY DAY with breakfast for 30 days; Hold for SBP less than 130 mmHg ibuprofen 400 mg oral tablet (20 sources) Nonsteroidal Anti-inflammatory Drug Start: End: 2 take 1 tablet by mouth every six hours as needed ibuprofen (MOTRIN) 400 mg tablet TAKE 1 TABLET BY MOUTH EVERY SIX HOURS NEEDED 100 tablet 1 04/17/2022 04/17/2022 Discontinued (Clinical Decision) Start: 06-12-2021 take 400 mg by mouth every four hours Ibuprofen Active 400 MG PO Q4H June 11, 2021 11:00pm Start: 12-29-2018 End: 12-31-2018 Comment on above: TAKE 1 TABLET BY DIYA EVERY SIX HOURS NEEDED levoFLOXacin 500 mg oral tab let (20 sources) Quinolone Antimicrobial Start: 01-05-2024 End: 01-26-2024 Start: 03-03-2022 End: 09-05-2022 loperamide hydrochloride 2 m g oral capsule (20 sources) Opioid Agonist Start: 10-28-2022 End: 01-02-2024 Start: 03-26-2021 End: 04-17-2022 take 1 capsule by mouth every six hours as needed for diarrhea and diarrhea loperamide (IMODIUM) 2 mg cap(s) Indications: Diarrhea, unspecified type Take 1 capsule by mouth four times daily as needed for diarrhea. 50 capsule 2 03/26/2021 04/17/2022 Discontinued (Discontinued by Patient) Comment on above: Take 1 capsule by mo [facility] four times daily as needed for diarrhea. LORazepam 0.5 mg oral tablet (20 sources) Benzodiazepine Start: 04-23-2024 End: 12-16-2024 Start: 01-02-2024 End: 01-26-2024 take 1 tablet by mouth every twelve hours as needed for anxiety Lorazepam 0.5 mg tablet Discontinued 0.5 mg PO Q12H as needed for ANXIETY January 02, 2024 12:00am January 26, 2024 11:51am Start: 12-16-2023 End: 04-17-2024 Start: 10-09-2023 End: 02-19-2024 take 1 tablet by mouth once daily LORazepam (ATIVAN) 0.5 mg Take 1 tablet by mouth once daily. 10/09/2023 02/19/2024 Discontinued Start: 04-19-2019 take 0.5-1 mg by diya once daily as needed Lorazepam Active 0.5 - 1 MG PO DAILY NEEDED April 18, 2019 11:00pm Start: 07-28-2013 End: 10-28-2013 Comment on above: Take 1 tablet by diya th two times a day for 30 days. Take 1 tablet by diya th once daily. naproxen 500 mg oral tablet (16 sources) Nonsteroidal Anti-inflammatory Drug Start: 10-13-2013 End: 10-28-2013 nystatin [id number] unt/ml oral suspension (20 sources) Polyene Antifungal Start: 01-07-2024 End: 01-19-2024 Start: 01-07-2024 End: 01-19-2024 Nystatin 100,000 unit/mL lorna pension Discontinued 5 mL MUCOUS MEM THREE TIMES A DAY 250 January 07, 2024 12:00am January 19, 2024 11:42pm swish and swallow 5 cc three times per day for 10 days Start: 01-07-2024 End: 01-19-2024 Nystatin Discontinued 5 ML M TORY MEM THREE TIMES A DAY 250 January 07, 2024 12:00am January 19, 2024 11:42pm swish and swallow 5 cc three times per day for 10 days Start: 08-27-2022 End: 04-15-2023 nystatin (MYCOSTATIN) 100,00 0 unit/mL suspension Take 5 mL by mouth four times daily. 1tsp swish in mouth for several minutes, then swallow (or expectorate) 4 times daily until gone. 200 mL 08/27/2022 12/31/2022 Discontinued Comment on above: Take 5 mL by mouth f our times daily. 1tsp swish in mouth for several minutes, then swallow (or expectorate) 4 times daily until gone. oxyCODONE hydrochloride 5 mg oral tablet (12 sources) Opioid Agonist Start: 07-08-2023 End: 01-05-2024 Start: 10-28-2022 End: 10-31-2022 take 1 tablet by mouth every six hours as needed oxyCODONE 5 mg oral tablet ; 1 tab(s) orally every 6 hours, As Needed -Pain - Severe (7-10) - G89.1.ADOD - .10/28Meds to Beds - .Patient Location [address]26 Quantity: 16 Refills: 0 Ordered: 28-Oct-2022 Katina Booker Start: 28-Oct-2022 End: 31-Oct-2022 Generic Substitution Allowed polyvinyl alcohol 0.014 ml/m l ophthalmic solution (13 sources) Start: 11-01-2022 End: 06-30-2023 sulfamethoxazole 800 mg / trimethoprim 160 mg oral tablet (14 sources) Dihydrofolate Reductase Inhibitor Antibacterial, Sulfonamide Antimicrobial Start: 11-01-2022 End: 11-07-2022 Start: 11-01-2022 End: 11-07-2022 take 1 tablet by mouth twice daily Sulfamethoxazole-Trimethoprim Discontinu ed 1 TABLET PO TWICE A DAY November 01, 2022 1:00am November 07, 2022 1:07pm Start: 10-28-2022 End: 11-07-2022 Sulfamethoxazole-Trimethopri m 800-160 mg tablet Discontinued 1 {tbl} PO TWICE A DAY November 01, 2022 1:00am November 07, 2022 1:07pm Comment on above: Avoid prolonged or e xcessive exposure to direct and/or artificial sunlight while taking this medication.Finish all this medication unless otherwise directed by prescriber.Medication should be taken with plenty of water. thiamine 100 mg oral tablet (16 sources) Start: 04-22-2019 End: 07-12-2019 60 actuat tiotropium 0.0025 mg/actuat inhalation spray (16 sources) Anticholinergic Start: 11-14-2020 End: 03-29-2021 Start: 11-14-2020 End: 03-29-2021 take 2.5 ug by inhalation once daily Tiotropium Harrison (Spiriva Respimat) 2.5 mcg/actuation mist Discontinued 2 NMA INHALATION daily November 14, 2020 1:00am March 29, 2021 11:33am administer at approximately the same time(s) each day Start: 11-14-2020 End: 03-29-2021 take 1 puff(s) by inhalation once daily Tiotropium Harrison (Spiriva Respimat) 2.5 mcg/actuation mist Discontinued 2 PUFF INHALATION daily November 14, 2020 1:00am March 29, 2021 11:33am administer at approximately the same time(s) each day Problems Active Problems Problem Classification Problem Date Documented Da te Episodic/Chronic Acute and unspecified renal failure (19 sources) Injury of kidney; Translations: [Acute kidney failure, unspecified] Onset: 3 11-01-2022 Episodic Alcohol-related disorders (20 sources) Alcoholic hepatitis; Translations: [Alcoholic hepatitis without ascites] Onset: 4 Resolved: 9 11-02-2018 Chronic Comment on above: Sobriety in 2020 Anxiety disorders (20 sources) Anxiety state; Translations: [Generalized anxiety disorder] Onset: 9 07-13-2017 Chronic Asthma (20 sources) Asthma; Translations: [Unspecified asthma, uncomplicated] Onset: 5 12-10-2019 Chronic Biliary tract disease (20 sources) Acute cholecystitis; Translations: [Acute cholecystitis] Onset: 5 06-12-2021 Episodic Cardiac dysrhythmias (1 source) Tachycardia; Translations: [Tachycardia, unspecified] 12-16-2023 Episodic Chronic obstructive pulmonary disease and bronchiectasis (20 sources) Chronic obstructive lung disease; Translations: [Chronic obstructive pulmonary disease, unspecified] Onset: 2 04-19-2019 Chronic Deficiency and other anemia (16 sources) Anemia; Translations: [Anemia, unspecified] 02-01-2019 Episodic Diseases of white blood cells (3 sources) Leukocytosis; Translations: [Elevated white blood cell count, unspecified] Onset: 4 01-12-2024 Chronic Disorders of lipid metabolism (20 sources) Hyperlipidemia; Translations: [Hyperlipidemia, unspecified] Onset: 9 12-21-2015 Chronic Disorders of teeth and jaw (1 source) Pain of right temporomandibular joint; Translations: [Arthralgia of right temporomandibular joint] 04-15-2023 Episodic Esophageal disorders (20 sources) Gastroesophageal reflux disease; Translations: [Gastro-esophageal reflux disease without esophagitis] Onset: 0 Resolved: 1 02-01-2019 Chronic Essential hypertension (20 sources) Benign essential hypertension; Translations: [Essential (primary) hypertension] Onset: 9 09-04-2009 Chronic Fluid and electrolyte disorders (15 sources) Acute hyponatremia; Translations: [Hypo-osmolality and hyponatremia] 11-01-2022 Episodic Genitourinary symptoms and ill-defined conditions (20 sources) Female stress incontinence; Translations: [Stress incontinence (female) (male)] Onset: 5 11-24-2014 Chronic Gout and other crystal arthropathies (13 sources) Acute gout; Translations: [Gout, unspecified] Onset: 5 06-10-2024 Chronic Inflammation; infection of eye (except that caused by tuberculosis or sexually transmitteddisease) (7 sources) Inflammation of orbit; 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] Onset: 3 Chronic Inflammation; infection of eye (except that caused by tuberculosis or sexually transmitteddisease) (20 sources) Orbital cellulitis; Translations: [Cellulitis of right orbit] Onset: 3 10-19-2022 Episodic Malaise and fatigue (1 source) Fatigue; Translations: [Chronic fatigue, unspecified] Chronic Menopausal disorders (20 sources) Postmenopausal bleeding; Translations: [Postmenopausal bleeding] Onset: 3 12-07-2012 Chronic Mood disorders (20 sources) Reactive depression (situational); Translations: [Major depressive disorder, single episode, unspecified] Onset: 9 04-28-2019 Chronic Mood disorders (1 source) Mood disorders; Translations: [Depression, unspecified] Onset: 3 Mycoses (1 source) Candidiasis of mouth; Translations: [Candidal stomatitis] Episodic Nutritional deficiencies (1 source) Iron deficiency; Translations: [Iron deficiency] Episodic Osteoarthritis (16 sources) Arthritis; Translations: [Unspecified osteoarthritis, unspecified site] 12-10-2019 Chronic Other aftercare (2 sources) Post-discharge follow-up; Translations: [Encounter for follow-up examination after completed treatment for conditions other than malignant neoplasm] 12-19-2024 Episodic Other aftercare (1 source) Encounter for follow-up examination after completed treatment for conditions other than malignant neoplasm; Translations: [Hospital discharge follow-up] Onset: 5 Episodic Other circulatory disease (12 sources) Stenosis of left subclavian artery; Translations: [Stricture of artery] 12-04-2024 Chronic Other circulatory disease (1 source) Stricture of artery; Translations: [Stricture of artery] Onset: 5 Chronic Other circulatory disease (1 source) H/O: hypertension; Translations: [Personal history of other diseases of circulatory system] Episodic Other connective tissue disease (8 sources) Foot pain; Translations: [Pain in right foot] 01-19-2024 Episodic Other connective tissue disease (7 sources) Swelling of right foot; Translations: [Other specified soft tissue disorders] 06-10-2024 Episodic Other connective tissue disease (7 sources) H/O: back problem; Translations: [Personal history of other diseases of the musculoskeletal system and connective tissue] 09-26-2019 Episodic Other eye disorders (1 source) Entropion of right lower eyelid; Translations: [Entropion, unspecified] 10-28-2022 Episodic Other gastrointestinal disorders (20 sources) Irritable bowel syndrome; Translations: [Mixed irritable bowel syndrome] Onset: 7 08-27-2017 Chronic Other gastrointestinal disorders (20 sources) Diarrhea; Translations: [Diarrhea, unspecified] 12-10-2019 Episodic Other gastrointestinal disorders (5 sources) History of pancreatitis; Translations: [Personal history of other diseases of digestive system] 12-24-2024 Episodic Other gastrointestinal disorders (9 sources) Dysphagia; Translations: [Dysphagia, unspecified] 12-19-2024 Episodic Other liver diseases (2 sources) High lipase level in serum; Translations: [Abnormal levels of other serum enzymes] 08-15-2024 Episodic Other lower respiratory disease (1 source) Lung mass; Translations: [Other nonspecific abnormal finding of lung field] Episodic Other lower respiratory disease (4 sources) Dyspnea; Translations: [Shortness of breath] 08-10-2024 Episodic Other lower respiratory disease (1 source) Productive cough ; Translations: [Cough with sputum] 11-07-2024 Episodic Other lower respiratory disease (12 sources) Nodule of lung; Translations: [Solitary pulmonary nodule] 12-04-2024 Episodic Other lower respiratory disease (1 source) Solitary pulmonary nodule; Translations: [Solitary pulmonary nodule] Onset: Episodic Other nervous system disorders (1 source) Neuropathy; Translations: [Polyneuropathy, unspecified] Chronic Other nervous system disorders (1 source) Other chronic pain; Translations: [Chronic RUQ pain] Onset: 5 Chronic Other nervous system disorders (3 sources) Paresthesia of lower extremity; Translations: [Anesthesia of skin] Episodic Other nervous system disorders (1 source) Paresthesia of foot ; Translations: [Anesthesia of skin] Episodic Other non-traumatic joint disorders (1 source) Multiple joint pain; Translations: [Pain in unspecified joint] Episodic Other non-traumatic joint disorders (8 sources) Swollen ankle region; Translations: [Effusion, right ankle] 01-19-2024 Episodic Other non-traumatic joint disorders (2 sources) Acute ankle pain; Translations: [Pain in right ankle and joints of right foot] 01-25-2024 Episodic Other nutritional; endocrine; and metabolic disorders (16 sources) Unintentional weight loss; Translations: [Abnormal weight loss] 02-01-2019 Episodic Other screening for suspected conditions (not mental disorders or infectious disease) (8 sources) Patient encounter status; Translations: [Encounter for screening mammogram for malignant neoplasm of breast] Episodic Other upper respiratory infections (12 sources) Sinusitis; Translations: [Chronic sinusitis, unspecified] 06-02-2023 Chronic Other upper respiratory infections (7 sources) Viral upper respiratory tract infection; Translations: [Acute upper respiratory infection, unspecified] 12-04-2024 Episodic Otitis media and related conditions (1 source) Otitis media of right ear; Translations: [Otitis media, unspecified, right ear] Episodic Pancreatic disorders (not diabetes) (20 sources) Recurrent pancreatitis; Translations: [Other chronic pancreatitis] Onset: 1 Resolved: 7 01-07-2019 Chronic Pancreatic disorders (not diabetes) (20 sources) Pancreatitis; Translations: [Acute pancreatitis without necrosis or infection, unspecified] Onset: 4 02-01-2019 Episodic Pleurisy; pneumothorax; pulmonary collapse (13 sources) Pleurisy; Translations: [Pleurisy] 01-02-2024 Episodic Pneumonia (except that caused by tuberculosis or sexually transmitted disease) (20 sources) Community acquired pneumonia; Translations: [Pneumonia, unspecified organism] 03-11-2022 Episodic Residual codes; unclassified (16 sources) Hypersomnia; Translations: [Hypersomnia, unspecified] 09-26-2019 Chronic Comment on above: May need PSG in futu re. Residual codes; unclassified (16 sources) Noncompliance with medication regimen; Translations: [Patient's other noncompliance with medication regimen] 03-29-2021 Episodic Residual codes; unclassified (20 sources) Tobacco user; Translations: [Tobacco use] Onset: 3 02-01-2019 Episodic Residual codes; unclassified (16 sources) History of colonoscopy; Translations: [Other specified postprocedural states] 04-20-2019 Episodic Residual codes; unclassified (3 sources) Insomnia; Translations: [Insomnia, unspecified] 04-15-2023 Episodic Respiratory failure; insufficiency; arrest (adult) (20 sources) Chronic hypoxemic respiratory failure; Translations: [Chronic respiratory failure with hypoxia] Onset: 3 Chronic Respiratory failure; insufficiency; arrest (adult) (15 sources) Acute respiratory failure; Translations: [Acute respiratory failure with hypoxia] Onset: 5 12-04-2024 Episodic Respiratory failure; insufficiency; arrest (adult) (2 sources) Respiratory failure; insufficiency; arrest (adult) 10-27-2022 Skin and subcutaneous tissue infections (19 sources) Cellulitis of abdominal wall ; Translations: [Cellulitis of abdominal wall] Onset: 3 08-03-2020 Episodic Spondylosis; intervertebral disc disorders; other back problems (20 sources) Degeneration of cervical intervertebral disc; Translations: [Other cervical disc degeneration, unspecified cervical region] Onset: 8 09-03-2018 Chronic Substance-related disorders (20 sources) Tobacco user; Translations: [Nicotine dependence, unspecified, uncomplicated] Onset: 8 06-29-2008 Chronic Comment on above: Ordered for January 15 Unclassified (9 sources) H/O: back problem; Translations: [History of back problems] 12-10-2019 Unclassified (2 sources) EYE PAIN 10-23-2022 Comment on above: EYE PAIN Unclassified (1 source) RECENT HOSP DISCHARGE- EVAL OF ENTROPION REPAIR 10-28-2022 Comment on above: RECENT HOSP DISCHARG E- EVAL OF ENTROPION REPAIR Unclassified (1 source) Pulmonary emphysema, unspecified emphysema type 10-24-2022 Unclassified (1 source) Hypertension, benign 10-24-2022 Unclassified (2 sources) Cellulitis of right orbital region 10-24-2022 Unclassified (1 source) Entropion of right lower eyelid 10-28-2022 Unclassified (1 source) Drug rash 10-29-2022 Viral infection (16 sources) Human papilloma virus infection; Translations: [Papillomavirus as the cause of diseases classified elsewhere] 02-01-2019 Episodic Past or Other Problems Problem Classification Problem Date Documented Da te Episodic/Chronic Abdominal pain (20 sources) Right upper quadrant pain; Translations: [Right upper quadrant pain] Onset: 08-10-2024 01-16-2022 Episodic Allergic reactions (3 sources) Eruption due to drug; Translations: [Dermatitis due to drugs and medicines taken internally] Onset: 10-29-2022 10-29-2022 Episodic Blindness and vision defects (2 sources) Other visual disturbances; Translations: [Diplopia] Onset: 10-29-2022 Episodic Diabetes mellitus without complication (4 sources) Prediabetes; Translations: [Prediabetes] Onset: 08-10-2024 Episodic E Codes: Adverse effects of medical drugs (2 sources) Adverse effect of penicillins, initial encounter; Translations: [Adverse effect of other systemic antibiotics, initial encounter] Onset: 10-29-2022 Episodic Fever of unknown origin (1 source) Fever, unspecified; Translations: [Fever, unspecified] Onset: 10-29-2022 Episodic Gastritis and duodenitis (20 sources) Acute gastritis; Translations: [Acute gastritis without bleeding] Onset: 10-03-2010 Resolved: 01-03-2015 01-03-2015 Episodic Genitourinary symptoms and ill-defined conditions (2 sources) Increased frequency of urination; Translations: [Frequency of micturition] Onset: 08-10-2024 08-10-2024 Episodic Immunizations and screening for infectious disease (2 sources) Needs influenza immunization; Translations: [Encounter for immunization] Onset: 08-05-2024 Episodic Nausea and vomiting (20 sources) Nausea and vomiting; Translations: [Nausea with vomiting, unspecified] Onset: 10-29-2022 11-01-2022 Episodic Nutritional deficiencies (20 sources) Deficiency of macronutrients; Translations: [Unspecified severe protein-calorie malnutrition] Onset: 01-07-2019 Resolved: 12-26-2022 01-07-2019 Chronic Other aftercare (1 source) 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; Translations: [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] Onset: 10-29-2022 Episodic Other and unspecified benign neoplasm (20 sources) History of polyp of colon; Translations: [Personal history of colonic polyps] Onset: 01-10-2021 Resolved: 01-10-2021 01-10-2021 Episodic Other gastrointestinal disorders (2 sources) Diarrhea, unspecified; Translations: [Diarrhea] Onset: 10-29-2022 11-07-2022 Episodic Other gastrointestinal disorders (1 source) Toxic gastroenteritis and colitis; Translations: [Toxic gastroenteritis and colitis] Onset: 10-29-2022 Episodic Other gastrointestinal disorders (20 sources) Abdominal bloating; Translations: [Abdominal distension (gaseous)] Onset: 01-10-2021 Resolved: 01-10-2021 01-10-2021 Episodic Other gastrointestinal disorders (1 source) Abdominal distension (gaseous); Translations: [Abdominal bloating] Onset: 11-02-2024 Episodic Other liver diseases (1 source) Abnormal levels of other serum enzymes; Translations: [Elevated lipase] Onset: 08-23-2024 Episodic Other lower respiratory disease (2 sources) Shortness of breath; Translations: [Shortness of breath] Onset: 08-10-2024 Episodic Ovarian cyst (20 sources) Cyst of right ovary; Translations: [Unspecified ovarian cyst, right side] Onset: 12-27-2012 12-27-2012 Episodic Residual codes; unclassified (20 sources) Positive measurement finding; Translations: [HPV test positive] Onset: 11-24-2014 11-24-2014 Episodic Residual codes; unclassified (1 source) Edema, unspecified; Translations: [Edema, unspecified] Onset: 11-07-2024 Episodic Residual codes; unclassified (1 source) Insomnia, unspecified; Translations: [Insomnia, unspecified type] Onset: 08-05-2024 Episodic Spondylosis; intervertebral disc disorders; other back problems (20 sources) Lumbar disc prolapse with radiculopathy; Translations: [Intervertebral disc disorders with radiculopathy, lumbar region] Onset: 06-18-2012 06-18-2012 Episodic Results Test Name Value Interpretation Reference Range Facility ANES POSTPROC EVALon 025 ANES POSTPROC EVAL HNO ID: [id number] Author: JOSE MARIA CHAKRABORTY MD Service: ? Author Type: Anesthesiologist Type: Anesthesia Postprocedure Evaluation Filed: 03/10/2025 15:51 Note Text: POST ANESTHESIA EVALUATION NOTE : 1965 Procedure Summary Date: 03/10/25 Room / Location: Gastroenterology Anesthesia Start: 1359 Anesthesia Stop: Procedure: ERCP Diagnosis: Other chronic pancreatitis (HCC) Scheduled Providers: Jane Farrell MD; Jose Maria Chakraborty MD; Vanessa Perez APRN.ACID DUMPER Responsible Provider: Jose Maria Chakraborty MD Anesthesia Type: general ASA Status: 3 Anesthesia Type: general Airway Type: supplemental O2 Last Vitals Vitals Value Taken Time BP 92/52 03/10/25 1508 Temp 03/10/25 1516 Pulse 84 03/10/25 1514 Resp 03/10/25 1516 SpO2 97 % 03/10/25 1514 Vitals shown include unfiled device data. Post Anesthesia Patient Status Patient Evaluation: bedside. Neurological Status: aware and responsive. Pulmonary Status: breathing comfortably on room air Airway Control: returned to baseline unsupported. Cardiovascular Status: stable. Pain Management: clinically adequate Postoperative Hydration: acceptable. Intraoperative Events: no significant anesthesia events Post Operative Nausea/Vomiting Status: no significant post operative nausea or vomiting Recommendation: continue current plan of care. Anesthesia Observations No Documentation SIGNATURE: Jose Maria Solano MD PATIENT NAME: Gracie Banuelos DATE: March 10, 2025 TIME: 3:16 PM CSN: [id number] [facility] ANES PRE-OPon 03-10-2025 ANES PRE-OP HNO ID: [id number] Author: JOSE MARIA CHAKRABORTY MD Service: ? Author Type: Anesthesiologist Type: Anesthesia Preprocedure Evaluation Filed: 03/10/2025 12:26 Note Text: ANESTHESIOLOGY DAY OF SURGERY NOTE : 1965 Procedure Information Date/Time: 03/10/25 1300 Scheduled providers: Jane Farrell MD; Jose Maria Chakraborty MD; Vanessa Perez APRN.ACID DUMPER Procedure: ERCP Location: Gastroenterology Estimated body mass index is 24.45 kg/m? as calculated from the following: Height as of 11/02/24: 160 cm (5' 3). Weight as of 01/13/25: 62.6 kg (138 lb). Most recent hematocrit and potassium results: Hematocrit 38.4 12/19/2024 Potassium 4.0 12/19/2024 Relevant Problems CARDIO (+) Essential hypertension, benign -RENAL (+) Alcoholic hepatitis without ascites (HCC) PULMONARY (+) Chronic obstructive pulmonary disease (HCC) (+) Pulmonary emphysema (HCC) I - PHYSICAL EVALUATION AIRWAY Patient intubated: No. Tracheostomy tube not present Mallampati: I. TM distance: >3 FB. Neck ROM: full ROM without neurological symptoms. Mouth opening: adequate. Short neck: no. Thick neck: no Oneill present: yes Lip Bite Test: I Microretrognathia/Micro nagthia/Recessed Chin: No DENTAL Dental findings: teeth intact. Additional exam findings: no II - ANESTHESIA PLAN ASA Score: 3 Anesthetic Plan: general Airway type: supplemental O2 The patient is not a current smoker. NPO Status: adequate Beta [place] Administration of chronic beta jersey medication not planned. Monitoring Plan Monitoring plan: standard ASA. Post Procedure Analgesic Plan Postoperative analgesic plan: parenteral or oral opioids. Informed Consent Anesthetic risks, benefits, alternatives, personnel and consent discussed: yes. Patient / Responsible Alliance Party agrees to proceed: yes Patient / Surrogate agrees to blood products: Yes DNR status not reviewed with patient and/or family prior to surgery. Significant changes in the patient condition since the History and Physical, not otherwise documented in primary service progress note: no. Potential Anesthesia issues that may suggest increased risk of complications or contraindication to planned procedure: other. No vitals data found for the desired time range. Outpatient Medications as of 03/10/2025 Medication Sig - gabapentin (NEURONTIN) 300 mg capsule Take 1 capsule by mouth three times a day for 30 days. - simvastatin (ZOCOR) 20 mg tablet Take 1 tablet by mouth daily at bedtime. - colchicine 0.6 mg tablet Take 2 pills x1 now then take 1 tablet BID until gone - albuterol (PROVENTIL) 2.5 mg /3 mL (0.083 %) nebulizer solution Use 3 mL via nebulizer one time only for 1 dose. Use over 5-15minutes. - ondansetron orally disintegrating (ZOFRAN ODT) 4 mg disintegrating tablet Take 1 tablet by mouth every 6 hours as needed for nausea/vomiting. - pantoprazole DR (PROTONIX) 40 mg tablet Take 1 tablet by mouth once daily. - metoprolol tartrate, short acting, (LOPRESSOR) 25 mg tablet Take 1 tablet by mouth two times a day. - amLODIPine (NORVASC) 5 mg tablet Take 1 tablet by mouth once daily. - hydrOXYzine HCl (ATARAX) 25 mg tablet Take 1 tablet by mouth three times a day as needed for itching/rash. - MUCINEX D MAXIMUM STRENGTH 120-1,200 mg tab ER 12 hr Take 1 tablet by mouth as needed. - Cholecalciferol, Vitamin D3, 50 mcg (2,000 unit) cap Take 1 capsule by mouth once daily. - predniSONE (DELTASONE) 20 mg tablet Take 2 tablets by mouth once daily. (Patient not taking: Reported on 11/02/2024) - ziprasidone (GEODON) 40 mg capsule Take 1 capsule by mouth at bedtime as needed. - hydrOXYzine pamoate (VISTARIL) 25 mg capsule Take 1 capsule by mouth daily at bedtime. - lisinopril (ZESTRIL) 10 mg tablet Take 1 tablet by mouth once daily. - Benzonatate 200 mg capsule Take 200 mg by mouth three times a day as needed. (Patient not taking: Reported on 11/07/2024) - Blood Pressure Monitor Home blood pressure monitor - cyclobenzaprine (FLEXERIL) 10 mg tablet Take 1 tablet by mouth twice daily as needed for muscle spasm. - albuterol HFA (VENTOLIN HFA) 90 mcg/actuation inhaler Inhale 2 Puffs as instructed four times daily as needed. - ferrous sulfate (SLOW FE) 140 mg (45 mg iron) TbER Take 1 tablet by mouth twice daily with meals. - mirtazapine (REMERON) [address] Talamantes. - multivitamin tablet Take 1 tablet by mouth once daily. - ARIPiprazole (ABILIFY) 5 mg tablet 5 mg once daily. - OXYGEN, HOME THERAPY, Inhale as instructed as directed. Patient is on 2-3 liters - COMPOUNDED PRESCRIPTION Pulse Oximetry - COMPOUNDED PRESCRIPTION nebulizer supplies (tubing) No current facility-administered medications on file as of 03/10/2025. I have interviewed and examined the patient. I have reviewed the medical record and/or the pre-anesthesia evaluation, pertinent labs, and test results. This contains updated information obtained within 48 areli (more content not included)... Normal [facility] ERCP Study observation Reginalda miguel 03-10-2025 [facility] Radiology Study observation (narrative) Minoo back [facility] NURSING PROGon 03-10-2025 NURSING PROG HNO ID: [id number] Author: JANIS AC, RN Service: Gastroenterology Author Type: Registered Nurse Type: Nursing Progress Note Filed: 03/10/2025 17:07 Note Text: Dr Gayle petit d patient to be discharged Three hot packs given to patient for right arm [facility] NURSING PROG HNO ID: [id number] Author: JANIS AC, RN Service: Gastroenterology Author Type: Registered Nurse Type: Nursing Progress Note Filed: 03/10/2025 16:51 Note Text: Patient states her arm where the infiltration occurred it is burning Patient informed to keep an eye on the infiltrated area so a blister does not form of it does go to the Emergency room [facility] NURSING PROG HNO ID: [id number] Author: JANIS AC RN Service: Gastroenterology Author Type: Registered Nurse Type: Nursing Progress Note Filed: 03/10/2025 16:24 Note Text: Right AC IV infiltrated with 100cc IV Propofol large swollen red hard area Hot pack applied Patient crying stating arm hurts patient Gracie and sister Magui spoke to Motor Coach Tour Operator nurse rainbow trout farm manager Reshma [facility] office number given. Pharmacy called, Zelda pharmacist notified unable to help. Called Drug information line spoke with Milan fallon monitor patient There is no information in regards to amount of time Propofol will take to infuse .Patient is awake alert oriented x3 Normal [facility] NURSING PROG HNO ID: [id number] Author: JANIS AC RN Service: Gastroenterology Author Type: Registered Nurse Type: Nursing Progress Note Filed: 03/10/2025 15:51 Note Text: Dr Chakraborty anesthesia notified patients blood pressure low 73/52 74/51 Albumin 25 grams given Patient awake alert oriented x3 skin warm and dry [facility] NURSING PROG HNO ID: [id number] Author: JANIS AC RN Service: Gastroenterology Author Type: Registered Nurse Type: Nursing Progress Note Filed: 03/10/2025 15:27 Note Text: AMBULATORY PATIENT EDUCATION NOTE TOPIC: GI PROCEDURES: Endoscopic Retrograde CholangioPancreatograph y(ERCP) with or without biopsy,stenting,dilatio n and/or treatment READINESS TO LEARN INSTRUCTION PROVIDED TO: Patient and family member COGNITIVE ABILITY: Alert and oriented PTED MOTIVATION TO LEARN: Interested FAMILY SUPPORT: High - Very involved in pt care IPATIENT LEARNS BEST BY: Individual Instruction Written Instruction - Hand-outs Verbal Instruction FACTORS AFFECTING LEARNING: None PHYSICAL LIMITATIONS AFFECTING LEARNING: None LEARNING RESPONSE METHOD OF INSTRUCTION: Individual instruction PATIENT / FAMILY RESPONSE: Verbalizes understanding of: WORSENING CONDITION-Signs and symptoms of a worsening condition that warrant a call to the physician FOLLOW-UP PLAN: Patient instructed to call with any further issues SUPPLEMENTAL MATERIAL: Procedure Discharge Instructions REFERRAL (RECOMMENDATION): None Electronically Signed By: Janis Ac RN [facility] NURSING PROG HNO ID: [id number] Author: ADRIAN EDMOND RN Service: ? Author Type: Registered Nurse Type: Nursing Progress Note Filed: 03/10/2025 12:30 Note Text: PRE OP LEARNING ASSESSMENT PROCEDURE/SURGERY: GI PROCEDURES: ERCP READINESS TO LEARN COGNITIVE ABILITY: Alert and oriented MOTIVATION TO LEARN: Eager FAMILY SUPPORT: High - Very involved in pt care PATIENT LEARNS BEST BY: Individual Instruction Verbal Instruction FACTORS AFFECTING LEARNING: None PHYSICAL LIMITATIONS AFFECTING LEARNING: None Electronically Signed By: Adrian Edmond RN In Department: GASTROENTEROLOGY Normal [facility] 03-07-2025 CNPN Telephone (GASTIN) GRACIE BANUELOS ([id number]) 1965 F Date Time Provider Department 03/07/25 [facility] During your visit today, we recorded the following information about you: Isis Gil 03/07/2025 11:48 AM Signed She stated there was supposed to be a letter or some document to be faxed over to [facility] [employer] to help pay for her gas prior to her ERCP on 03/10/25 Email: [email or web address] Are we able to get that sent over for patient? Thank you Juan Mike LPN 03/07/2025 12:29 PM Signed Jane Farrell MD Department of Gastroenterology- Advanced Endoscopy [address] [id number] 03/07/2025 Pt. name: Gracie Banuelos 1965 MEDICAL Procedure This is to certify that Gracie Banuelos this is a letter to confirm that Gracie has a procedure at [facility] on 03/10 with an arrival time of 12pm. This appointment needs to have a responsible adult long haul truck driver to accompany her for transportation to and after her procedure. Sincerely, Isis Long MD 03/07/2025 2:30 PM Signed Patient called, did not receive email. She stated it had to all be in lower case. I resent email Thank you Isis R Allergies As of Date: 03/07/2025 Noted Allergy Reaction BACTRIM (SULFAMETHOXAZOLE-TRIME TH*11/28/2022 4 - Hives HYDROCODONE 08/02/2020 9 - Itching PENICILLINS 07/07/2006 14 - Other: See Comments Comments: hives VALIUM (DIAZEPAM) 11/02/2013 14 - Other: See Comments Comments: cross reaction with alcohol addiction Date Reviewed: 01/13/2025 Reviewed by: Soila Easton APRN.DAYTIME CAREGIVER - Fully Assessed Reason for Visit: Orders [681] Prescriptions as of 03/07/2025 - gabapentin (NEURONTIN) 300 mg capsule Take 1 capsule by mouth three times a day for 30 days. - simvastatin (ZOCOR) 20 mg tablet Take 1 tablet by mouth daily at bedtime. - colchicine 0.6 mg tablet Take 2 pills x1 now then take 1 tablet BID until gone - albuterol (PROVENTIL) 2.5 mg /3 mL (0.083 %) nebulizer solution Use 3 mL via nebulizer one time only for 1 dose. Use over 5-15minutes. - ondansetron orally disintegrating (ZOFRAN ODT) 4 mg disintegrating tablet Take 1 tablet by mouth every 6 hours as needed for nausea/vomiting. - pantoprazole DR (PROTONIX) 40 mg tablet Take 1 tablet by mouth once daily. - metoprolol tartrate, short acting, (LOPRESSOR) 25 mg tablet Take 1 tablet by mouth two times a day. - amLODIPine (NORVASC) 5 mg tablet Take 1 tablet by mouth once daily. - hydrOXYzine HCl (ATARAX) 25 mg tablet Take 1 tablet by mouth three times a day as needed for itching/rash. - MUCINEX D MAXIMUM STRENGTH 120-1,200 mg tab ER 12 hr Take 1 tablet by mouth as needed. - Cholecalciferol, Vitamin D3, 50 mcg (2,000 unit) cap Take 1 capsule by mouth once daily. - predniSONE (DELTASONE) 20 mg tablet Take 2 tablets by mouth once daily. - ziprasidone (GEODON) 40 mg capsule Take 1 capsule by mouth at bedtime as needed. - hydrOXYzine pamoate (VISTARIL) 25 mg capsule Take 1 capsule by mouth daily at bedtime. - lisinopril (ZESTRIL) 10 mg tablet Take 1 tablet by mouth once daily. - Benzonatate 200 mg capsule Take 200 mg by mouth three times a day as needed. - Blood Pressure Monitor Home blood pressure monitor - cyclobenzaprine (FLEXERIL) 10 mg tablet Take 1 tablet by mouth twice daily as needed for muscle spasm. - albuterol HFA (VENTOLIN HFA) 90 mcg/actuation inhaler Inhale 2 Puffs as instructed four times daily as needed. - ferrous sulfate (SLOW FE) 140 mg (45 mg iron) TbER Take 1 tablet by mouth twice daily with meals. - mirtazapine (REMERON) [address] Talamantes. - multivitamin tablet Take 1 tablet by mouth once daily. - ARIPiprazole (ABILIFY) 5 mg tablet 5 mg once daily. - OXYGEN, HOME THERAPY, Inhale as instructed as directed. Patient is on 2-3 liters - COMPOUNDED PRESCRIPTION Pulse Oximetry - COMPOUNDED PRESCRIPTION nebulizer supplies (tubing) Problem List As Of Date 03/07/2025 Noted Resolved TOBACCO USE DISORDER [F17.200] 06/29/2008 Anxiety state [F41.1] 10/19/2008 Hyperlipidemia [E78.5] 01/31/2009 Essential Hypertension, Benign [I10] 09/04/2009 Gastroesophageal reflux disease [K21.9] 12/26/2009 01/10/2021 Acute gastritis without mention of hemorrhage [*10/03/2010 01/03/2015 Pancreatitis chronic 05/26/2011 08/27/2017 Chronic obstructive pulmonary disease (HCC) [J4*05/25/2012 Lumbar disc disease with radiculopathy [M51.16] 06/18/2012 Postmenopausal bleeding [N95.0] 12/07/2012 Ovarian cyst, right [N83.201] 12/27/2012 Alcoholic hepatitis without ascites [K70.10] 11/16/2013 Urine, incontinence, stress female [N39.3] 11/24/2014 HPV test positive [[id number]] 11/24/2014 Alcohol dependence in remission (HCC) [F10.21] 07/10/2015 11/02/2018 Pulm (more content not included)... [facility] ([id number]) 1965 F Date Time Provider Department 03/06/25 CAITLIN OBRIEN GGENMN During your visit today, we recorded the following information about you: Caitlin Obrien RN 03/06/2025 11:30 AM Signed Attempted to reach patient to answer he questions from call this morning, no answer. VM left to call the office back. Allergies As of Date: 03/06/2025 Noted Allergy Reaction BACTRIM (SULFAMETHOXAZOLE-TRIME TH*11/28/2022 4 - Hives HYDROCODONE 08/02/2020 9 - Itching PENICILLINS 07/07/2006 14 - Other: See Comments Comments: hives VALIUM (DIAZEPAM) 11/02/2013 14 - Other: See Comments Comments: cross reaction with alcohol addiction Date Reviewed: 01/13/2025 Reviewed by: Soila Easton APRN.DAYTIME CAREGIVER - Fully Assessed Prescriptions as of 03/06/2025 - gabapentin (NEURONTIN) 300 mg capsule Take 1 capsule by mouth three times a day for 30 days. - simvastatin (ZOCOR) 20 mg tablet Take 1 tablet by mouth daily at bedtime. - colchicine 0.6 mg tablet Take 2 pills x1 now then take 1 tablet BID until gone - albuterol (PROVENTIL) 2.5 mg /3 mL (0.083 %) nebulizer solution Use 3 mL via nebulizer one time only for 1 dose. Use over 5-15minutes. - ondansetron orally disintegrating (ZOFRAN ODT) 4 mg disintegrating tablet Take 1 tablet by mouth every 6 hours as needed for nausea/vomiting. - pantoprazole DR (PROTONIX) 40 mg tablet Take 1 tablet by mouth once daily. - metoprolol tartrate, short acting, (LOPRESSOR) 25 mg tablet Take 1 tablet by mouth two times a day. - amLODIPine (NORVASC) 5 mg tablet Take 1 tablet by mouth once daily. - hydrOXYzine HCl (ATARAX) 25 mg tablet Take 1 tablet by mouth three times a day as needed for itching/rash. - MUCINEX D MAXIMUM STRENGTH 120-1,200 mg tab ER 12 hr Take 1 tablet by mouth as needed. - Cholecalciferol, Vitamin D3, 50 mcg (2,000 unit) cap Take 1 capsule by mouth once daily. - predniSONE (DELTASONE) 20 mg tablet Take 2 tablets by mouth once daily. - ziprasidone (GEODON) 40 mg capsule Take 1 capsule by mouth at bedtime as needed. - hydrOXYzine pamoate (VISTARIL) 25 mg capsule Take 1 capsule by mouth daily at bedtime. - lisinopril (ZESTRIL) 10 mg tablet Take 1 tablet by mouth once daily. - Benzonatate 200 mg capsule Take 200 mg by mouth three times a day as needed. - Blood Pressure Monitor Home blood pressure monitor - cyclobenzaprine (FLEXERIL) 10 mg tablet Take 1 tablet by mouth twice daily as needed for muscle spasm. - albuterol HFA (VENTOLIN HFA) 90 mcg/actuation inhaler Inhale 2 Puffs as instructed four times daily as needed. - ferrous sulfate (SLOW FE) 140 mg (45 mg iron) TbER Take 1 tablet by mouth twice daily with meals. - mirtazapine (REMERON) [address] Talamantes. - multivitamin tablet Take 1 tablet by mouth once daily. - ARIPiprazole (ABILIFY) 5 mg tablet 5 mg once daily. - OXYGEN, HOME THERAPY, Inhale as instructed as directed. Patient is on 2-3 liters - COMPOUNDED PRESCRIPTION Pulse Oximetry - COMPOUNDED PRESCRIPTION nebulizer supplies (tubing) Problem List As Of Date 03/06/2025 Noted Resolved TOBACCO USE DISORDER [F17.200] 06/29/2008 Anxiety state [F41.1] 10/19/2008 Hyperlipidemia [E78.5] 01/31/2009 Essential Hypertension, Benign [I10] 09/04/2009 Gastroesophageal reflux disease [K21.9] 12/26/2009 01/10/2021 Acute gastritis without mention of hemorrhage [*10/03/2010 01/03/2015 Pancreatitis chronic 05/26/2011 08/27/2017 Chronic obstructive pulmonary disease (HCC) [J4*05/25/2012 Lumbar disc disease with radiculopathy [M51.16] 06/18/2012 Postmenopausal bleeding [N95.0] 12/07/2012 Ovarian cyst, right [N83.201] 12/27/2012 Alcoholic hepatitis without ascites [K70.10] 11/16/2013 Urine, incontinence, stress female [N39.3] 11/24/2014 HPV test positive [[id number]] 11/24/2014 Alcohol dependence in remission (HCC) [F10.21] 07/10/2015 11/02/2018 Pulmonary emphysema (HCC) [J43.9] 11/27/2015 Irritable bowel syndrome with both constipation*08/27/2017 Alcohol use disorder, moderate, dependence (HCC*08/27/2017 DDD (degenerative disc disease), cervical [M50.*09/03/2018 Severe protein-calorie malnutrition (HCC) [E43] 01/07/2019 12/26/2022 Chronic recurrent pancreatitis (HCC) [K86.1] 01/07/2019 Reactive depression [F32.9] 04/28/2019 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 chronic pancreatitis (HCC) [K86*07/26/2019 Moderate episode of recurrent major depressive *09/01/2020 History of colonic polyps [Z86.0100] 01/10/2021 01/10/2021 Abdominal bloating [R14.0] 01/10/2021 01/10/2021 Encounter Status:Closed by CAITLIN OBRIEN on 03/06/25 [facility] Telephone (GAPRA3) GRACIE BANUELOS ([id number]) 1965 F Date Time Provider Department 03/06/25 RAISA JIMENEZ During your visit today, we recorded the following information about you: Allergies As of Date: 03/06/2025 Noted Allergy Reaction BACTRIM (SULFAMETHOXAZOLE-TRIME TH*11/28/2022 4 - Hives HYDROCODONE 08/02/2020 9 - Itching PENICILLINS 07/07/2006 14 - Other: See Comments Comments: hives VALIUM (DIAZEPAM) 11/02/2013 14 - Other: See Comments Comments: cross reaction with alcohol addiction Date Reviewed: 01/13/2025 Reviewed by: Soila Easton APRN.DAYTIME CAREGIVER - Fully Assessed Reason for Visit: Patient Question [3067] Prescriptions as of 03/06/2025 - gabapentin (NEURONTIN) 300 mg capsule Take 1 capsule by mouth three times a day for 30 days. - simvastatin (ZOCOR) 20 mg tablet Take 1 tablet by mouth daily at bedtime. - colchicine 0.6 mg tablet Take 2 pills x1 now then take 1 tablet BID until gone - albuterol (PROVENTIL) 2.5 mg /3 mL (0.083 %) nebulizer solution Use 3 mL via nebulizer one time only for 1 dose. Use over 5-15minutes. - ondansetron orally disintegrating (ZOFRAN ODT) 4 mg disintegrating tablet Take 1 tablet by mouth every 6 hours as needed for nausea/vomiting. - pantoprazole DR (PROTONIX) 40 mg tablet Take 1 tablet by mouth once daily. - metoprolol tartrate, short acting, (LOPRESSOR) 25 mg tablet Take 1 tablet by mouth two times a day. - amLODIPine (NORVASC) 5 mg tablet Take 1 tablet by mouth once daily. - hydrOXYzine HCl (ATARAX) 25 mg tablet Take 1 tablet by mouth three times a day as needed for itching/rash. - MUCINEX D MAXIMUM STRENGTH 120-1,200 mg tab ER 12 hr Take 1 tablet by mouth as needed. - Cholecalciferol, Vitamin D3, 50 mcg (2,000 unit) cap Take 1 capsule by mouth once daily. - predniSONE (DELTASONE) 20 mg tablet Take 2 tablets by mouth once daily. - ziprasidone (GEODON) 40 mg capsule Take 1 capsule by mouth at bedtime as needed. - hydrOXYzine pamoate (VISTARIL) 25 mg capsule Take 1 capsule by mouth daily at bedtime. - lisinopril (ZESTRIL) 10 mg tablet Take 1 tablet by mouth once daily. - Benzonatate 200 mg capsule Take 200 mg by mouth three times a day as needed. - Blood Pressure Monitor Home blood pressure monitor - cyclobenzaprine (FLEXERIL) 10 mg tablet Take 1 tablet by mouth twice daily as needed for muscle spasm. - albuterol HFA (VENTOLIN HFA) 90 mcg/actuation inhaler Inhale 2 Puffs as instructed four times daily as needed. - ferrous sulfate (SLOW FE) 140 mg (45 mg iron) TbER Take 1 tablet by mouth twice daily with meals. - mirtazapine (REMERON) [address] Talamantes. - multivitamin tablet Take 1 tablet by mouth once daily. - ARIPiprazole (ABILIFY) 5 mg tablet 5 mg once daily. - OXYGEN, HOME THERAPY, Inhale as instructed as directed. Patient is on 2-3 liters - COMPOUNDED PRESCRIPTION Pulse Oximetry - COMPOUNDED PRESCRIPTION nebulizer supplies (tubing) Problem List As Of Date 03/06/2025 Noted Resolved TOBACCO USE DISORDER [F17.200] 06/29/2008 Anxiety state [F41.1] 10/19/2008 Hyperlipidemia [E78.5] 01/31/2009 Essential Hypertension, Benign [I10] 09/04/2009 Gastroesophageal reflux disease [K21.9] 12/26/2009 01/10/2021 Acute gastritis without mention of hemorrhage [*10/03/2010 01/03/2015 Pancreatitis chronic 05/26/2011 08/27/2017 Chronic obstructive pulmonary disease (HCC) [J4*05/25/2012 Lumbar disc disease with radiculopathy [M51.16] 06/18/2012 Postmenopausal bleeding [N95.0] 12/07/2012 Ovarian cyst, right [N83.201] 12/27/2012 Alcoholic hepatitis without ascites [K70.10] 11/16/2013 Urine, incontinence, stress female [N39.3] 11/24/2014 HPV test positive [SFE2979] 11/24/2014 Alcohol dependence in remission (HCC) [F10.21] 07/10/2015 11/02/2018 Pulmonary emphysema (HCC) [J43.9] 11/27/2015 Irritable bowel syndrome with both constipation*08/27/2017 Alcohol use disorder, moderate, dependence (HCC*08/27/2017 DDD (degenerative disc disease), cervical [M50.*09/03/2018 Severe protein-calorie malnutrition (HCC) [E43] 01/07/2019 12/26/2022 Chronic recurrent pancreatitis (HCC) [K86.1] 01/07/2019 Reactive depression [F32.9] 04/28/2019 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 chronic pancreatitis (HCC) [K86*07/26/2019 Moderate episode of recurrent major depressive *09/01/2020 History of colonic polyps [Z86.0100] 01/10/2021 01/10/2021 Abdominal bloating [R14.0] 01/10/2021 01/10/2021 Encounter Status:Closed by RAISA [facility]ENEZ [facility] GRACIE BANUELOS ([id number]) 1965 F Date Time Provider Department 03/06/25 JUAN SENIOR During your visit today, we recorded the following information about you: Isis Gil 03/06/2025 9:10 AM Signed Gracie calling #[phone] Patient is calling regarding wanting to speak with Juan Senior directly if possible, she stated she has some questions prior to her ERCP on 03/10/25. Also wanted to mention that the gabapentin she was put on has given her diarrhea and she's very confused and forgetting to take her medication and forgetful in general, She's unsure if this is something she should be taking Confirmed call back number and voicemail is ok. Thank you Isis Joe Allergies As of Date: 03/06/2025 Noted Allergy Reaction BACTRIM (SULFAMETHOXAZOLE-TRIME TH*11/28/2022 4 - Hives HYDROCODONE 08/02/2020 9 - Itching PENICILLINS 07/07/2006 14 - Other: See Comments Comments: hives VALIUM (DIAZEPAM) 11/02/2013 14 - Other: See Comments Comments: cross reaction with alcohol addiction Date Reviewed: 01/13/2025 Reviewed by: Soila Easton APRN.DAYTIME CAREGIVER - Fully Assessed Reason for Visit: Patient Question [1477] Cmt: Questions Prior to ERCP Prescriptions as of 03/07/2025 - gabapentin (NEURONTIN) 300 mg capsule Take 1 capsule by mouth three times a day for 30 days. - simvastatin (ZOCOR) 20 mg tablet Take 1 tablet by mouth daily at bedtime. - colchicine 0.6 mg tablet Take 2 pills x1 now then take 1 tablet BID until gone - albuterol (PROVENTIL) 2.5 mg /3 mL (0.083 %) nebulizer solution Use 3 mL via nebulizer one time only for 1 dose. Use over 5-15minutes. - ondansetron orally disintegrating (ZOFRAN ODT) 4 mg disintegrating tablet Take 1 tablet by mouth every 6 hours as needed for nausea/vomiting. - pantoprazole DR (PROTONIX) 40 mg tablet Take 1 tablet by mouth once daily. - metoprolol tartrate, short acting, (LOPRESSOR) 25 mg tablet Take 1 tablet by mouth two times a day. - amLODIPine (NORVASC) 5 mg tablet Take 1 tablet by mouth once daily. - hydrOXYzine HCl (ATARAX) 25 mg tablet Take 1 tablet by mouth three times a day as needed for itching/rash. - MUCINEX D MAXIMUM STRENGTH 120-1,200 mg tab ER 12 hr Take 1 tablet by mouth as needed. - Cholecalciferol, Vitamin D3, 50 mcg (2,000 unit) cap Take 1 capsule by mouth once daily. - predniSONE (DELTASONE) 20 mg tablet Take 2 tablets by mouth once daily. - ziprasidone (GEODON) 40 mg capsule Take 1 capsule by mouth at bedtime as needed. - hydrOXYzine pamoate (VISTARIL) 25 mg capsule Take 1 capsule by mouth daily at bedtime. - lisinopril (ZESTRIL) 10 mg tablet Take 1 tablet by mouth once daily. - Benzonatate 200 mg capsule Take 200 mg by mouth three times a day as needed. - Blood Pressure Monitor Home blood pressure monitor - cyclobenzaprine (FLEXERIL) 10 mg tablet Take 1 tablet by mouth twice daily as needed for muscle spasm. - albuterol HFA (VENTOLIN HFA) 90 mcg/actuation inhaler Inhale 2 Puffs as instructed four times daily as needed. - ferrous sulfate (SLOW FE) 140 mg (45 mg iron) TbER Take 1 tablet by mouth twice daily with meals. - mirtazapine (REMERON) [address] Talamantes. - multivitamin tablet Take 1 tablet by mouth once daily. - ARIPiprazole (ABILIFY) 5 mg tablet 5 mg once daily. - OXYGEN, HOME THERAPY, Inhale as instructed as directed. Patient is on 2-3 liters - COMPOUNDED PRESCRIPTION Pulse Oximetry - COMPOUNDED PRESCRIPTION nebulizer supplies (tubing) Problem List As Of Date 03/06/2025 Noted Resolved TOBACCO USE DISORDER [F17.200] 06/29/2008 Anxiety state [F41.1] 10/19/2008 Hyperlipidemia [E78.5] 01/31/2009 Essential Hypertension, Benign [I10] 09/04/2009 Gastroesophageal reflux disease [K21.9] 12/26/2009 01/10/2021 Acute gastritis without mention of hemorrhage [*10/03/2010 01/03/2015 Pancreatitis chronic 05/26/2011 08/27/2017 Chronic obstructive pulmonary disease (HCC) [J4*05/25/2012 Lumbar disc disease with radiculopathy [M51.16] 06/18/2012 Postmenopausal bleeding [N95.0] 12/07/2012 Ovarian cyst, right [N83.201] 12/27/2012 Alcoholic hepatitis without ascites [K70.10] 11/16/2013 Urine, incontinence, stress female [N39.3] 11/24/2014 HPV test positive [[id number]] 11/24/2014 Alcohol dependence in remission (HCC) [F10.21] 07/10/2015 11/02/2018 Pulmonary emphysema (HCC) [J43.9] 11/27/2015 Irritable bowel syndrome with both constipation*08/27/2017 Alcohol use disorder, moderate, dependence (HCC*08/27/2017 DDD (degenerative disc disease), cervical [M50.*09/03/2018 Severe protein-calorie malnutrition (HCC) [E43] 01/07/2019 12/26/2022 Chronic recurrent pancreatitis (HCC) [K86.1] 01/07/2019 Reactive depression [F32.9] 04/28/2019 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 chronic pancreatitis (HCC) [K86*07/26/2019 Moderate episode of recurrent major depressive *09/01/2020 History of co (more content not included)... Normal [facility] NURSING PROGon 03-03-2025 NURSING PROG HNO ID: [id number] Author: JAELYN KOTHAIR RN Service: ? Author Type: Registered Nurse Type: Nursing Progress Note Filed: 03/03/2025 09:48 Note Text: Attempted to reach the patient at the contact number that they provided [phone] (home) . Unable to speak with patient so without identifying the patient the following information was left on their voice mail: Date of procedure, location and report time A message was left informing the patient/patient patient support representative they must have a responsible adult accompany them to their procedure; and remain in the endoscopy area until they are discharged. Failure to have a responsible adult accompany the patient to their procedure appointment prevents the use of sedation or anesthesia for their procedure; and can result in cancellation of the procedure NPO instructions were reviewed. Instructions to contact their primary care provider regarding their medications and which medications to stop in preparation for their procedure Instructions to completely read and follow the written instructions that they recieved regarding their procedure. Number to call with questions or concerns [phone] Number to call to cancel their procedure [phone] Jaelyn Kothari RN Normal [facility] Abdomen/Pelvis W IV Cont ONL Yon 02-26-2025 Abdomen/Pelvis W IV Cont ONLY Normal [facility] Absolute lymphocyte countOrd ered By: Katina Price on 02-26-2025 Lymphocytes Auto (Unsp spec) [#/Vol] 2.50 10*3/uL 0.83-4.51 [facility] Anion gap in Serum or Plasma Ordered By: Katina Price on 02-26-2025 Anion gap [Moles/Vol] 11 mmol/L 5-15 [facility] Automated lymphocyte count a s percentage of total leukocytesOrdered By: Katinagerri Price on 02-26-2025 Lymphocytes/100 WBC Auto (Unsp spec) 20.2 % 19-41 [facility] BUN/creatinine ratioOrdered By: Katinagerri Price on 02-26-2025 Urea nitrogen/Creatinine [Mass ratio] 7.6 mg/mg Low 10-20 [facility] Basophil percentageOrdered B y: Katina Price on 02-26-2025 Basophils/100 WBC (Bld) 1.0 % 0-1 [facility] Bilirubin, totalOrdered By: Katina Price on 02-26-2025 Bilirubin [Mass/Vol] mg/dL 0.00-1.[address] [facility] CBC W/Diff, Automatedon Absolute Lymph 2.50 X10 3/uL Normal 0.83-4.51 [facility] Comment on above: Performed By: #### L 501.2450, L100.0100, L500.4050 ####[facility] [address] [place], [address] Absolute Neut 7.9 X10 3/uL High 2.0-7.7 [facility] Comment on above: Performed By: #### L 501.2450, L100.0100, L500.4050 ####[facility] [address] [place], [address] Basophils/100 WBC (Bld) 1.0 % Normal 0-1 [facility] Comment on above: Performed By: #### L 501.2450, L100.0100, L500.4050 ####[facility] [address] [place], [address] Eosinophils/100 WBC (Bld) 6.1 % High 0-5 [facility] Comment on above: Performed By: #### L 501.2450, L100.0100, L500.4050 ####[facility] [address] [place], [address] Erythrocyte distribution width (RBC) [Ratio] 14.6 % Normal 11.6-14.6 [facility] Comment on above: Performed By: #### L 501.2450, L100.0100, L500.4050 ####[facility] [address] [place], [address] Hematocrit (Bld) [Volume fraction] 39.8 % Normal 37-47 [facility] Comment on above: Performed By: #### L 501.2450, L100.0100, L500.4050 ####[facility] [address] [place], [address] Hemoglobin (Bld) [Mass/Vol] 12.1 g/dL Normal 12.0-15.0 [facility] Comment on above: Performed By: #### L 501.2450, L100.0100, L500.4050 ####[facility] [address] [place], [address] IG% 0.900 Normal 0.0-0.9 [facility] Comment on above: Result Comment: IG% - Immature Granulocytes (promyelocytes, myelocytes andmetamyelocytes) > 1% indicates that a LEFT SHIFT is Present. Performed By: #### L 501.2450, L100.0100, L500.4050 ####[facility] [address] [place], [address] Lymphocytes/100 WBC (Bld) 20.2 % Normal 19-41 [facility] Comment on above: Performed By: #### L 501.2450, L100.0100, L500.4050 ####[facility] [address] [place], [address] MCH (RBC) [Entitic mass] 26.8 pg Low 27.0-32.0 [facility] Comment on above: Performed By: #### L 501.2450, L100.0100, L500.4050 ####[facility] [address] [place], [address] MCHC (RBC) [Mass/Vol] 30.4 g/dL Low 32-36 [facility] Comment on above: Performed By: #### L 501.2450, L100.0100, L500.4050 ####[facility] [address] [place], [address] MCV (RBC) [Entitic vol] 88.2 fL Normal 81-99 [facility] Comment on above: Performed By: #### L 501.2450, L100.0100, L500.4050 ####[facility] [address] [place], [address] Monocytes/100 WBC (Bld) 8.2 % Normal 0-10 [facility] Comment on above: Performed By: #### L 501.2450, L100.0100, L500.4050 ####[facility] [address] [place], [address] Neutrophils/100 WBC (Bld) 63.6 % Normal 47-70 [facility] Comment on above: Performed By: #### L 501.2450, L100.0100, L500.4050 ####[facility] [address] [place], [address] Nucleated RBC (Bld) [#/Vol] 0 10*3/uL Normal 0-5 [facility] Comment on above: Performed By: #### L 501.2450, L100.0100, L500.4050 ####[facility] [address] [place], [address] Platelet mean volume (Bld) [Entitic vol] 10.6 fL Normal 6.2-12.0 [facility] Comment on above: Performed By: #### L 501.2450, L100.0100, L500.4050 ####[facility] [address] [place], [address] Platelets (Bld) [#/Vol] 293 10*3/uL Normal 150-450 [facility] Comment on above: Performed By: #### L 501.2450, L100.0100, L500.4050 ####[facility] [address] [place], [address] RBC (Bld) [#/Vol] 4.51 10*6/uL Normal 4.2-5.4 [facility] Comment on above: Performed By: #### L 501.2450, L100.0100, L500.4050 ####[facility] [address] [place], [address] RDW SD 46.9 fl High 35.1-43.9 [facility] Comment on above: Performed By: #### L 501.2450, L100.0100, L500.4050 ####[facility] [address] [place], [address] WBC (Bld) [#/Vol] 12.4 10*3/uL High 4.4-11.0 [facility] Comment on above: Performed By: #### L 501.2450, L100.0100, L500.4050 ####[facility] [address] [place], [address] Carbon dioxide, total [Moles /volume] in Central venous bloodOrdered By: Katina Price on 02-26-2025 CO2 [Moles/Vol] 30.6 mmol/L 21.0-32.0 [facility] Chloride assayOrdered By: Afia Price on 02-26-2025 Chloride [Moles/Vol] 99 mmol/L 98-[address] [facility] Comprehensive Metabolic Prof ilon 02-26-2025 Albumin [Mass/Vol] 4.1 g/dL Normal 3.4-4.8 [facility] Comment on above: Performed By: #### L 501.2450, L100.0100, L500.4050 ####[facility] [address] [place], [address] Albumin/Globulin [Mass ratio] 1.3 {ratio} Normal 0.9-2.4 [facility] Comment on above: Performed By: #### L 501.2450, L100.0100, L500.4050 ####[facility] [address] [place], [address] ALK PHOS 113 U/L High 35-104 [facility] Comment on above: Performed By: #### L 501.2450, L100.0100, L500.4050 ####[facility] [address] [place], [address] ALT [Catalytic activity/Vol] 10 U/L Normal <=34 [facility] Comment on above: Performed By: #### L 501.2450, L100.0100, L500.4050 ####[facility] [address] [place], [address] AST [Catalytic activity/Vol] 17 U/L Normal <=31 [facility] Comment on above: Performed By: #### L 501.2450, L100.0100, L500.4050 ####[facility] [address] [place], [address] BUN/CRE 7.6 RATIO Low 10-20 [facility] Comment on above: Performed By: #### L 501.2450, L100.0100, L500.4050 ####[facility] [address] [place], [address] Calcium [Mass/Vol] 9.5 mg/dL Normal 7.6-11.0 [facility] Comment on above: Performed By: #### L 501.2450, L100.0100, L500.4050 ####[facility] [address] [place], [address] Chloride [Moles/Vol] 99 mmol/L Normal 98-[address] [facility] Comment on above: Performed By: #### L 501.2450, L100.0100, L500.4050 ####[facility] [address] [place], [address] CO2 [Moles/Vol] 30.6 mmol/L Normal 21.0-32.0 [facility] Comment on above: Performed By: #### L 501.2450, L100.0100, L500.4050 ####[facility] [address] [place], [address] Creatinine [Mass/Vol] 0.82 mg/dL Normal 0.70-1.20 [facility] Comment on above: Performed By: #### L 501.2450, L100.0100, L500.4050 ####[facility] [address] [place], [address] ECRCL 59.60 ml/min Normal 50-250 [facility] Comment on above: Performed By: #### L 501.2450, L100.0100, L500.4050 ####[facility] [address] [place], [address] GAP 11 Normal 5-15 [facility] Comment on above: Performed By: #### L 501.2450, L100.0100, L500.4050 ####[facility] [address] [place], [address] GFR/1.73 sq M.predicted among non-blacks MDRD (S/P/Bld) [Vol rate/Area] 81 mL/min/{1.73_m2} Normal >60 [facility] Comment on above: Result Comment: mL/m in/1.73m2 CKD-EPI Creatinine Equation (2020) Performed By: #### L 501.2450, L100.0100, L500.4050 ####[facility] [address] [place], [address] Globulin (S) [Mass/Vol] 3.1 g/dL Normal 2.2-4.2 [facility] Comment on above: Performed By: #### L 501.2450, L100.0100, L500.4050 ####[facility] [address] [place], [address] Glucose [Mass/Vol] 83 mg/dL Normal 70-99 [facility] Comment on above: Performed By: #### L 501.2450, L100.0100, L500.4050 ####[facility] [address] [place], [address] Potassium [Moles/Vol] 4.1 mmol/L Normal 3.3-5.1 [facility] Comment on above: Performed By: #### L 501.2450, L100.0100, L500.4050 ####[facility] [address] [place], [address] Sodium [Moles/Vol] 140 mmol/L Normal 133-145 [facility] Comment on above: Performed By: #### L 501.2450, L100.0100, L500.4050 ####[facility] [address] [place], [address] T BILI < 0.15 Normal 0.00-1.30 [facility] Comment on above: Performed By: #### L 501.2450, L100.0100, L500.4050 ####[facility] [address] [place], [address] T PROT 7.2 g/dL Normal 5.9-8.4 [facility] Comment on above: Performed By: #### L 501.2450, L100.0100, L500.4050 ####[facility] [address] [place], [address] Urea nitrogen [Mass/Vol] 6 mg/dL Normal 4-19 [facility] Comment on above: Performed By: #### L 501.2450, L100.0100, L500.4050 ####[facility] [address] [place], [place], [address] Emergency Department Summary on 02-26-2025 Emergency Department Summary Normal [facility] Eosinophil percentageOrdered By: Katina Price on 02-26-2025 Eosinophils/100 WBC (Bld) 6.1 % High 0-5 [facility] Erythrocyte distribution wid th ratioOrdered By: Katina Price on 02-26-2025 Erythrocyte distribution width (RBC) [Ratio] 14.6 % 11.6-14.6 [facility] Erythrocyte distribution wid th standard deviationOrdered By: Katina Price on 02-26-2025 Erythrocyte distribution width (RBC) [Ratio] 46.9 fl High 35.1-43.9 [facility] Glomerular filtration rate ( GFR) estimation/1.73 sq m using serum, plasma, or whole bOrdered By: Katina Price on 02-26-2025 GFR/1.73 sq M.predicted among non-blacks MDRD (S/P/Bld) [Vol rate/Area] 81 mL/min/{1.73_m2} >60 [facility] Hematocrit Auto (Bld) [Volum e fraction]Ordered By: Katina Price on 02-26-2025 Hematocrit (Bld) [Volume fraction] 39.8 % 37-47 [facility] Hemoglobin measurementOrdere d By: Katina Price on 02-26-2025 Hemoglobin (Bld) [Mass/Vol] 12.1 g/dL 12.0-15.0 [facility] Immature granulocytes/100 WB C Auto (Bld)Ordered By: Katina Price on 02-26-2025 Immature granulocytes/100 WBC (Bld) 0.900 % 0.0-0.9 [facility] Lipaseon 02-26-2025 Lipase [Catalytic activity/Vol] 45 U/L Normal 13-75 [facility] Comment on above: Result Comment: Jenny capellan note:LIPASE revised reference range effective 23.New Lipase methodology. Expected to produce lower valuesthan the previous assay method.NEW Reference Range: 13 - 75 U/L Performed By: #### L 501.2450, L100.0100, L500.4050 ####[facility] [address] [place], [address] MCV (mean corpuscular volume ) determinationOrdered By: Katina Price on 02-26-2025 MCV (RBC) [Entitic vol] 88.2 fL 81-99 [facility] Mean corpuscular hemoglobin (MCH) determinationOrdered By: Katina Price on 02-26-2025 MCH (RBC) [Entitic mass] 26.8 pg Low 27.0-32.0 [facility] Monocyte percentageOrdered B y: Katina Price on 02-26-2025 Monocytes/100 WBC (Bld) 8.2 % 0-10 [facility] Neutrophil percentageOrdered By: Katina Price on 02-26-2025 Neutrophils/100 WBC (Bld) 63.6 % 47-70 [facility] No Panel InformationOrdered By: Katina Price on 02-26-2025 17 U/L <32 [facility] Platelet countOrdered By: Afia Price on 02-26-2025 Platelets (Bld) [#/Vol] 293 10*3/uL 150-450 [facility] Potassium measurement (mass/ volume)Ordered By: Katina Price on 02-26-2025 Potassium (Unsp spec) [Mass/Vol] 4.1 mmol/L 3.3-5.1 [facility] RBC Auto (Bld) [#/Vol]Ordere d By: Katian Price on 02-26-2025 RBC (Bld) [#/Vol] 4.51 10*6/uL 4.2-5.4 [facility] Serum creatinine measurement (mass/volume)Ordered By: Katina Price on 02-26-2025 Creatinine [Mass/Vol] 0.82 mg/dL 0.70-1.20 [facility] Serum globulin measurementOr dered By: Katina Price on 02-26-2025 Globulin (S) [Mass/Vol] 3.1 g/dL 2.2-4.2 [facility] Serum glucose measurement (m ass/volume)Ordered By: Katina Price on 02-26-2025 Glucose [Mass/Vol] 83 mg/dL 70-99 [facility] Serum or plasma alanine pimentel otransferase (ALT) measurementOrdered By: Katina Price on 02-26-2025 ALT [Catalytic activity/Vol] 10 U/L <35 [facility] Serum or plasma albumin esthela urement (mass/volume)Ordered By: Katina Price on 02-26-2025 Albumin [Mass/Vol] 4.1 g/dL 3.4-4.8 [facility] Serum or plasma albumin/glob ulin mass ratioOrdered By: Katina Price on 02-26-2025 Albumin/Globulin [Mass ratio] 1.3 {ratio} 0.9-2.4 [facility] Serum or plasma alkaline jose sphatase measurementOrdered By: Katina Price on 02-26-2025 ALP [Catalytic activity/Vol] 113 U/L High 35-104 [facility] Serum or plasma calcium esthela urement (mass/volume)Ordered By: Katina Price on 02-26-2025 Calcium [Mass/Vol] 9.5 mg/dL 7.6-11.0 [facility] Serum or plasma urea nitroge n measurement (mass/volume)Ordered By: Katina Price on 02-26-2025 Urea nitrogen [Mass/Vol] 6 mg/dL 4-19 [facility] Sodium levelOrdered By: Katina Price on 02-26-2025 Sodium [Moles/Vol] 140 mmol/L 133-145 [facility] Total proteinOrdered By: Valeria Price on 02-26-2025 Protein [Mass/Vol] 7.2 g/dL 5.9-8.4 [facility] White blood cell (WBC) count Ordered By: Katina Price on 02-26-2025 WBC (Bld) [#/Vol] 12.4 10*3/uL High 4.4-11.0 [facility] Pulmonary Visit Reporton Pulmonary Visit Report Normal [facility] 12 Lead EKGon 01-27-2025 12 Lead EKG Normal [facility] Absolute lymphocyte countOrd ered By: Franco Inman on 01-27-2025 Lymphocytes Auto (Unsp spec) [#/Vol] 2.62 10*3/uL 0.83-4.51 [facility] Anion gap in Serum or Plasma Ordered By: Franco Inman on 01-27-2025 Anion gap [Moles/Vol] 11 mmol/L 5-15 [facility] Automated blood erythrocyte countOrdered By: Franco Inman on 01-27-2025 RBC (Bld) [#/Vol] 4.32 10*6/uL Normal 4.2-5.4 [facility] Comment on above: Performed By: #### L 100.0100 ####[facility] [address] [place], [place], [id number] Automated blood hematocrit ( percentage)Ordered By: Franco Inman on 01-27-2025 Hematocrit (Bld) [Volume fraction] 37.5 % Normal 37-47 [facility] Comment on above: Performed By: #### L 100.0100 ####[facility] [address] [place], [place], [address] Automated lymphocyte count a s percentage of total leukocytesOrdered By: Franco Inman on 01-27-2025 Lymphocytes/100 WBC Auto (Unsp spec) 16.8 % Low 19-41 [facility] BUN/creatinine ratioOrdered By: Franco Inman on 01-27-2025 Urea nitrogen/Creatinine [Mass ratio] 7.1 mg/mg Low 10-20 [facility] Basophil percentageOrdered B y: Franco Inman on 01-27-2025 Basophils/100 WBC (Bld) 1.0 % Normal 0-1 [facility] Comment on above: Performed By: #### L 100.0100 ####[facility] [address] [place], [place], [id number] Bilirubin, totalOrdered By: Franco Inman on 01-27-2025 Bilirubin [Mass/Vol] mg/dL 0.00-1.[address] [facility] CBC W/Diff, Automatedon 05-0 2-2025 Absolute Lymph 2.62 X10 3/uL Normal 0.83-4.51 [facility] Comment on above: Performed By: #### L 100.0100 ####[facility] [address] [place], [address] Absolute Neut 11.0 X10 3/uL High 2.0-7.7 [facility] Comment on above: Performed By: #### L 100.0100 ####[facility] [address] [place], [address] IG% 0.800 Normal 0.0-0.9 [facility] Comment on above: Result Comment: IG% - Immature Granulocytes (promyelocytes, myelocytes andmetamyelocytes) > 1% indicates that a LEFT SHIFT is Present. Performed By: #### L 100.0100 ####[facility] [address] [place], [address] Lymphocytes/100 WBC (Bld) 16.8 % Low 19-41 [facility] Comment on above: Performed By: #### L 100.0100 ####[facility] [address] [place], [address] MCHC (RBC) [Mass/Vol] 30.7 g/dL Low 32-36 [facility] Comment on above: Performed By: #### L 100.0100 ####[facility] [address] [place], [address] Nucleated RBC (Bld) [#/Vol] 0 10*3/uL Normal 0-5 [facility] Comment on above: Performed By: #### L 100.0100 ####[facility] [address] [place], [address] Platelet mean volume (Bld) [Entitic vol] 9.8 fL Normal 6.2-12.0 [facility] Comment on above: Performed By: #### L 100.0100 ####[facility] [address] [place], [address] RDW SD 46.0 fl High 35.1-43.9 [facility] Comment on above: Performed By: #### L 100.0100 ####[facility] [address] [place], [address] Carbon dioxide, total [Moles /volume] in Central venous bloodOrdered By: Franco Inman on 01-27-2025 CO2 [Moles/Vol] 27.5 mmol/L Normal 21.0-32.0 [facility] Comment on above: Performed By: #### L 500.4050, L501.2450 ####[facility] [address] [place], [address] Chest PA and Lateralon 01-27 Chest PA and Lateral Normal [facility] Chloride assayOrdered By: Leo Inman on 01-27-2025 Chloride [Moles/Vol] 98 mmol/L Normal 98-[address] [facility] Comment on above: Performed By: #### L 500.4050, L501.2450 ####[facility] [address] [place], [address] Comprehensive Metabolic Prof ilon 01-27-2025 ALK PHOS 108 U/L High 35-104 [facility] Comment on above: Performed By: #### L 500.4050, L501.2450 ####[facility] [address] [place], [address] AST [Catalytic activity/Vol] 19 U/L Normal <=31 [facility] Comment on above: Performed By: #### L 500.4050, L501.2450 ####[facility] [address] [place], [address] BUN/CRE 7.1 RATIO Low 10-20 [facility] Comment on above: Performed By: #### L 500.4050, L501.2450 ####[facility] [address] [place], [address] ECRCL 65.16 ml/min Normal 50-250 [facility] Comment on above: Performed By: #### L 500.4050, L501.2450 ####[facility] [address] [place], [address] GAP 11 Normal 5-15 [facility] Comment on above: Performed By: #### L 500.4050, L501.2450 ####[facility] [address] [place], [address] Potassium [Moles/Vol] 4.3 mmol/L Normal 3.3-5.1 [facility] Comment on above: Performed By: #### L 500.4050, L501.2450 ####[facility] [address] [place], [address] T BILI < 0.15 Normal 0.00-1.30 [facility] Comment on above: Performed By: #### L 500.4050, L501.2450 ####[facility] [address] [place], [address] T PROT 7.1 g/dL Normal 5.9-8.4 [facility] Comment on above: Performed By: #### L 500.4050, L501.2450 ####[facility] [address] [place], [address] Emergency Department Summary on 01-27-2025 Emergency Department Summary Normal [facility] Eosinophil percentageOrdered By: Franco Inman on 01-27-2025 Eosinophils/100 WBC (Bld) 5.3 % High 0-5 [facility] Comment on above: Performed By: #### L 100.0100 ####[facility] [address] [place], [address] Erythrocyte distribution wid th ratioOrdered By: Franco Inman on 01-27-2025 Erythrocyte distribution width (RBC) [Ratio] 14.5 % Normal 11.6-14.6 [facility] Comment on above: Performed By: #### L 100.0100 ####[facility] [address] [place], [place], [address] Erythrocyte distribution wid th standard deviationOrdered By: Franco Inman on 01-27-2025 Erythrocyte distribution width (RBC) [Ratio] 46.0 fl High 35.1-43.9 [facility] Glomerular filtration rate ( GFR) estimation/1.73 sq m using serum, plasma, or whole bOrdered By: Franco Inman on 01-27-2025 GFR/1.73 sq M.predicted among non-blacks MDRD (S/P/Bld) [Vol rate/Area] 90 mL/min/{1.73_m2} Normal >60 [facility] Comment on above: Result Comment: mL/m in/1.73m2 CKD-EPI Creatinine Equation (2020) Performed By: #### L 500.4050, L501.2450 ####[facility] [address] [place], [place], [id number] Hemoglobin measurementOrdere d By: Franco Inman on 01-27-2025 Hemoglobin (Bld) [Mass/Vol] 11.5 g/dL Low 12.0-15.0 [facility] Comment on above: Performed By: #### L 100.0100 ####[facility] [address] [place], [address] Immature granulocytes/100 WB C Auto (Bld)Ordered By: Franco Inman on 01-27-2025 Immature granulocytes/100 WBC (Bld) 0.800 % 0.0-0.9 [facility] Lipaseon 01-27-2025 Lipase [Catalytic activity/Vol] 32 U/L Normal 13-75 [facility] Comment on above: Result Comment: Plegerri capellan note:LIPASE revised reference range effective 23.New Lipase methodology. Expected to produce lower valuesthan the previous assay method.NEW Reference Range: 13 - 75 U/L Performed By: #### L 500.4050, L501.2450 ####[facility] [address] [place], [address] MCV (mean corpuscular volume ) determinationOrdered By: Franco Inman on 01-27-2025 MCV (RBC) [Entitic vol] 86.8 fL Normal 81-99 [facility] Comment on above: Performed By: #### L 100.0100 ####[facility] [address] [place], [address] Mean corpuscular hemoglobin (MCH) determinationOrdered By: Franco Inman on 01-27-2025 MCH (RBC) [Entitic mass] 26.6 pg Low 27.0-32.0 [facility] Comment on above: Performed By: #### L 100.0100 ####[facility] [address] [place], [address] Monocyte percentageOrdered B y: Franco Inman on 01-27-2025 Monocytes/100 WBC (Bld) 5.9 % Normal 0-10 [facility] Comment on above: Performed By: #### L 100.0100 ####[facility] [address] [place], [address] Neutrophil percentageOrdered By: Franco Inman on 01-27-2025 Neutrophils/100 WBC (Bld) 70.2 % High 47-70 [facility] Comment on above: Performed By: #### L 100.0100 ####[facility] [address] [place], [address] No Panel InformationOrdered By: Franco Inman on 01-27-2025 19 U/L <32 [facility] Platelet countOrdered By: Leo Inman on 01-27-2025 Platelets (Bld) [#/Vol] 377 10*3/uL Normal 150-450 [facility] Comment on above: Performed By: #### L 100.0100 ####[facility] [address] [place], [address] Potassium measurement (mass/ volume)Ordered By: Franco Inman on 01-27-2025 Potassium (Unsp spec) [Mass/Vol] 4.3 mmol/L 3.3-5.1 [facility] Serum creatinine measurement (mass/volume)Ordered By: Franco Inman on 01-27-2025 Creatinine [Mass/Vol] 0.75 mg/dL Normal 0.70-1.20 [facility] Comment on above: Performed By: #### L 500.4050, L501.2450 ####[facility] [address] [place], [address] Serum globulin measurementOr dered By: Franco Inman on 01-27-2025 Globulin (S) [Mass/Vol] 3.1 g/dL Normal 2.2-4.2 [facility] Comment on above: Performed By: #### L 500.4050, L501.2450 ####[facility] [address] [place], [address] Serum glucose measurement (m ass/volume)Ordered By: Franco Inman on 01-27-2025 Glucose [Mass/Vol] 130 mg/dL High 70-99 [facility] Comment on above: Performed By: #### L 500.4050, L501.2450 ####[facility] [address] [place], [address] Serum or plasma alanine pimentel otransferase (ALT) measurementOrdered By: Franco Inman on 01-27-2025 ALT [Catalytic activity/Vol] 13 U/L Normal <=34 [facility] Comment on above: Performed By: #### L 500.4050, L501.2450 ####[facility] [address] [place], [address] Serum or plasma albumin esthela urement (mass/volume)Ordered By: Franco Inman on 01-27-2025 Albumin [Mass/Vol] 4.0 g/dL Normal 3.4-4.8 [facility] Comment on above: Performed By: #### L 500.4050, L501.2450 ####[facility] [address] [place], [address] Serum or plasma albumin/glob ulin mass ratioOrdered By: Franco Inman on 01-27-2025 Albumin/Globulin [Mass ratio] 1.3 {ratio} Normal 0.9-2.4 [facility] Comment on above: Performed By: #### L 500.4050, L501.2450 ####[facility] [address] [place], [address] Serum or plasma alkaline jose sphatase measurementOrdered By: Franco Inman on 01-27-2025 ALP [Catalytic activity/Vol] 108 U/L High 35-104 [facility] Serum or plasma calcium esthela urement (mass/volume)Ordered By: Franco Inman on 01-27-2025 Calcium [Mass/Vol] 9.2 mg/dL Normal 7.6-11.0 [facility] Comment on above: Performed By: #### L 500.4050, L501.2450 ####[facility] [address] [place], [address] Serum or plasma urea nitroge n measurement (mass/volume)Ordered By: Franco Inman on 01-27-2025 Urea nitrogen [Mass/Vol] 5 mg/dL Normal 4-19 [facility] Comment on above: Performed By: #### L 500.4050, L501.2450 ####[facility] [address] [place], [address] Sodium levelOrdered By: Franco Inman on 01-27-2025 Sodium [Moles/Vol] 137 mmol/L Normal 133-145 [facility] Comment on above: Performed By: #### L 500.4050, L501.2450 ####[facility] [address] [place], [address] Total proteinOrdered By: Ezra Inman on 01-27-2025 Protein [Mass/Vol] 7.1 g/dL 5.9-8.4 [facility] White blood cell (WBC) count Ordered By: Franco Inman on 01-27-2025 WBC (Bld) [#/Vol] 15.6 10*3/uL High 4.4-11.0 [facility] Comment on above: Performed By: #### L 100.0100 ####[facility] [address] [place], [address] CNOVon 01-13-2025 CNOV Office Visit (INTMWS ) GRACIE BANUELOS Salvatore ([id number]) 1965 F Date Time Provider Department 01/13/25 10:40 AM SOILA EASTON During your visit today, we recorded the following information about you: Pulse Respiration Blood pressure Weight 88/minute 16/minute 108/60 62.6 kg Soila Easton APRN.CNP 01/13/2025 11:33 AM Signed CC: Patient presents with: Recheck: Follow up HPI Gracie Chase Vin is a 59 year old female who presents today for gout concerns. Recording using GrexIt software for draft documentation of the visit was discussed with the patient/authorized patient support representative; all questions welcomed and answered. Patient/authorized patient support representative agreed to proceed Gout: - Under care of Dr. Del [facility] - was told it was gout which she has been treated with by them before and was instructed to see her PCP for treatment - Recent exacerbation in right foot, with swelling and pain in toes, especially at night. Similar presentation as past exacerbations. - Per patient, last exacerbation about a week ago, treated with morphine shot in the ER - Takes colchicine for gout, last used a couple of months ago asa ordered by her vocational training teacher. 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 - Previously on 12 L of oxygen, now reduced to 5 L; goal is 2 L for upcoming pancreatic stent placement. - currently on portable O2 compressor which delivers on demand versus continuous so oxygen level in office is in 80s. Patient reports that is typical for her and when she is at home on her continuous compressor, she will be in the 90s. 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 - Concerns about potential need for ventilator post-surgery. - Under care of Dr. Sebastian and Ani at [facility]. - No recent infections, fever, or chills. - On breathing treatments 4 times a day. - Spot found on right lung. - Former 2 PPD smoker, now reduced to 7 cigarettes/day; uses nicotine patch at night. Pancreatic Stones and chronic pancreatitis: - Undergoing treatment for pancreatic stones; awaiting stent placement. - Concerns about oxygen levels during surgery; GI and anesthesia team involved and awaiting for lower oxygen needs to proceed with surgery. - No longer consuming alcohol. REVIEW OF SYSTEMS See HPI PAST MEDICAL HISTORY Diagnosis Date Acute exacerbation of chronic obstructive airways disease (HCC) Alcohol dependence in remission (HCC) 07/10/2015 Alcohol use disorder 08/27/2017 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 pancreatitis (HCC) Alcoholic hepatitis (HCC) 05/18/2012 Alcoholic liver disease (HCC) 11/16/2013 Anemia Anxiety with depression Arthritis Asthma (HCC) Chronic hypoxemic respiratory failure (HCC) COPD (chronic obstructive pulmonary disease) (HCC) 05/25/2012 DDD (degenerative disc disease), cervical 09/03/2018 Diaphragmatic hernia without mention of obstruction or gangrene Diarrhea Diverticulosis GERD (gastroesophageal reflux disease) Hemorrhoids HLD (hyperlipidemia) HTN (hypertension) Human papillomavirus in conditions classified elsewhere and of unspecified site Irritable bowel syndrome with both constipation and diarrhea 08/27/2017 Lumbar disc disease with radiculopathy 06/18/2012 Other and unspecified alcohol dependence, unspecified drinking behavior Ovarian cyst, right 12/27/2012 Pancreatitis chronic 05/26/2011 Pneumonia of both lungs due to infectious organism 2017 Severe protein-calorie malnutrition (HCC) 01/07/2019 Stage 3 severe COPD by GOLD classification ([facility]) 2018 Tobacco use greater than 30 years Unspecified hemorrhoids without mention of complication Urine, incontinence, stress female 11/24/2014 PAST SURGICAL HISTORY Procedure Laterality Date APPENDECTOMY at age 14 COLONOSCOPY 04/15/[address], [address] Paul Perez. COLONOSCOPY 01/23/2015 2-Tubular adenomas. Dr. Víctor Lopez. COLONOSCOPY 07/29/2017 normal COLONOSCOPY - DIAGNOSTIC 01/10/2021 10 yr interval EGD 10/03/[address] Paul Perez. EGD 07/29/2017 mild gastritis, otherwise normal EGD 01/10/2021 EGD EUS 12/05/2019 mild gastritis, chronic pancreatitis with PD stone L'SCOPE CHOLECYSTECTOMY 06/14/2021 TUBAL LIGATION HX 1986 ALLERGIES Bactrim [Sulfamethoxazole-Trime thoprim], Hydrocodone, Penicillins, and Valium [Diazepam] MEDICATIONS colchicine 0.6 mg tablet Take 2 pills x1 now then take 1 tablet BID until gone gabapentin (NEURONTIN) 300 mg capsule Take 1 capsule by mouth two times a day for 30 days. albuterol (PROVENTIL) 2.5 mg /3 mL (0.083 %) nebulizer solution Use 3 mL via nebulizer one time only for 1 dose. Use over 5-15minutes. ondansetron orally disintegrating (ZOFRAN ODT) 4 mg disintegrating tablet Take 1 tablet by mouth every 6 hours as needed for nausea/ (more content not included)... Normal [facility] CBC W/Diff, Automatedon 12-27 PATH REV Reviewed Normal [facility] Comment on above: Result Comment: SEE REPORT IN PATIENT'S EMR AMENDED REPORT 01/11/25 2358 PATH REV previously reported as: May foll Performed By: #### L 100.0100, L500.2500 ####[facility] [address] [place], [place], [address] PATH REV Reviewed Normal [facility] Comment on above: Result Comment: SEE REPORT IN PATIENT'S EMR AMENDED REPORT 01/11/25 1352 PATH REV previously reported as: May foll Performed By: #### L 100.0100, L500.2500 ####[facility] [address] [place], [place], [address] Performed By: #### L 100.0100 ####[facility] [address] [place], [address] PATH REV Reviewed Normal [facility] Comment on above: Result Comment: SEE REPORT IN PATIENT'S EMR AMENDED REPORT 01/11/25 1342 PATH REV previously reported as: January Performed By: #### L 503.7505, L500.2500, L100.0100, L509.7001 ####[facility] [address] [place], [address] [facility] GRAC[facility] BANUELOS ([id number]) 1965 F Date Time Provider Department 01/09/25 ANNMARIE ELKINS INTMWS During your visit today, we recorded the following information about you: Marge Perkins RN 01/09/2025 7:18 PM Signed Pt called in and reports she can get pull ups paid for through [employer]. She states the provider jst has to send an order to a pharmacy and they will pay for them. I asked her what size she wore and she said M or L. Pt said she wanted provider to send order to [facility]. I asked if they had sent them there for her before, and the Pt said they have not. Pt reports she is having surgery on her Pancrease so her stomach will be going down. I told the Pt the provider usually has to send the orders to a DME not a pharmacy, but I would have them call her tomorrow if they had any questions. Please call and advise. SARWAT Cochran Chitra, MD 01/09/2025 10:01 PM Signed Please confirm with her, the symptoms for which she needs the pull ups, Regards, Aleta Blanco MD, MA 01/10/2025 9:54 AM Signed Spoke with pt, she states she has urinary incontinence and trouble holding her urine when she is outside her home. Sent rx to [facility]. FYI: Pt scheduled appt tomorrow with Soila Easton to discuss multiple concerns. CHERELLE Jones Amanda, RN 01/12/2025 1:15 PM Signed Pt has appointment with Soila Easotn Supervisor Stave Cutting on 01/14/24. Allergies As of Date: 01/09/2025 Noted Allergy Reaction BACTRIM (SULFAMETHOXAZOLE-TRIME TH*11/28/2022 4 - Hives HYDROCODONE 08/02/2020 9 - Itching PENICILLINS 07/07/2006 14 - Other: See Comments Comments: hives VALIUM (DIAZEPAM) 11/02/2013 14 - Other: See Comments Comments: cross reaction with alcohol addiction Date Reviewed: 12/31/2024 Reviewed by: Marge Handy RN - Fully Assessed Reason for Visit: Order for Pull Ups [Other] Prescriptions as of 01/12/2025 - gabapentin (NEURONTIN) 300 mg capsule Take 1 capsule by mouth two times a day for 30 days. - albuterol (PROVENTIL) 2.5 mg /3 mL (0.083 %) nebulizer solution Use 3 mL via nebulizer one time only for 1 dose. Use over 5-15minutes. - ondansetron orally disintegrating (ZOFRAN ODT) 4 mg disintegrating tablet Take 1 tablet by mouth every 6 hours as needed for nausea/vomiting. - pantoprazole DR (PROTONIX) 40 mg tablet Take 1 tablet by mouth once daily. - metoprolol tartrate, short acting, (LOPRESSOR) 25 mg tablet Take 1 tablet by mouth two times a day. - amLODIPine (NORVASC) 5 mg tablet Take 1 tablet by mouth once daily. - hydrOXYzine HCl (ATARAX) 25 mg tablet Take 1 tablet by mouth three times a day as needed for itching/rash. - MUCINEX D MAXIMUM STRENGTH 120-1,200 mg tab ER 12 hr Take 1 tablet by mouth as needed. - Cholecalciferol, Vitamin D3, 50 mcg (2,000 unit) cap Take 1 capsule by mouth once daily. - predniSONE (DELTASONE) 20 mg tablet Take 2 tablets by mouth once daily. - ziprasidone (GEODON) 40 mg capsule Take 1 capsule by mouth at bedtime as needed. - hydrOXYzine pamoate (VISTARIL) 25 mg capsule Take 1 capsule by mouth daily at bedtime. - lisinopril (ZESTRIL) 10 mg tablet Take 1 tablet by mouth once daily. - simvastatin (ZOCOR) 20 mg tablet Take 1 tablet by mouth daily at bedtime. - Benzonatate 200 mg capsule Take 200 mg by mouth three times a day as needed. - Blood Pressure Monitor Home blood pressure monitor - cyclobenzaprine (FLEXERIL) 10 mg tablet Take 1 tablet by mouth twice daily as needed for muscle spasm. - albuterol HFA (VENTOLIN HFA) 90 mcg/actuation inhaler Inhale 2 Puffs as instructed four times daily as needed. - ferrous sulfate (SLOW FE) 140 mg (45 mg iron) TbER Take 1 tablet by mouth twice daily with meals. - mirtazapine (REMERON) [address] tablet Pres[address] Dr. Talamantes. - multivitamin tablet Take 1 tablet by mouth once daily. - ARIPiprazole (ABILIFY) 5 mg tablet 5 mg once daily. - OXYGEN, HOME THERAPY, Inhale as instructed as directed. Patient is on 2-3 liters - COMPOUNDED PRESCRIPTION Pulse Oximetry - COMPOUNDED PRESCRIPTION nebulizer supplies (tubing) Problem List As Of Date 01/09/2025 Noted Resolved TOBACCO USE DISORDER [F17.200] 06/29/2008 Anxiety state [F41.1] 10/19/2008 Hyperlipidemia [E78.5] 01/31/2009 Essential Hypertension, Benign [I10] 09/04/2009 Gastroesophageal reflux disease [K21.9] 12/26/2009 01/10/2021 Acute gastritis without mention of hemorrhage [*10/03/2010 01/03/2015 Pancreatitis chronic 05/26/2011 08/27/2017 Chronic obstructive pulmonary disease (HCC) [J4*05/25/2012 Lumbar disc disease with radiculopathy [M51.16] 06/18/2012 Postmenopausal bleeding [N95.0] 12/07/2012 Ovarian cyst, right [N83.201] 12/27/2012 Alcoholic hepatitis without ascites [K70.10] 11/16/2013 Urine, incontinence, stress female [N39.3] 11/24/2014 HPV test positive [[id number]] 11/24/2014 Alcohol depe (more content not included)... Normal [facility] CBC W/Diff, Automatedon 04-0 PATH REV N/A Normal [facility] Comment on above: Result Comment: AMENDED REPORT 01/04/252142 PATH REV previously reported as: January ana maría Performed By: #### L 501.2450, L500.4050, L100.0100 ####[facility] [address] [place], [address] 12 Lead EKGon 01-01-2025 12 Lead EKG Normal [facility] ALP [Catalytic activity/Vol] Ordered By: Leandro Sanchez on 01-01-2025 Serum or plasma alkaline phosphatase measurement 111 U/L High 35-104 [facility] ALT [Catalytic activity/Vol] Ordered By: Leandro Sanchez on 01-01-2025 Serum or plasma alanine aminotransferase (ALT) measurement 8 U/L <35 [facility] Absolute lymphocyte countOrd ered By: Leandro Sanchez on 01-01-2025 Lymphocytes Auto (Unsp spec) [#/Vol] 3.90 10*3/uL 0.83-4.51 [facility] Absolute neutrophil countOrd ered By: Leandro Sanchez on 01-01-2025 Absolute neutrophil count 8.9 X10^3/uL High 2.0-7.7 [facility] Albumin [Mass/Vol]Ordered By : Leandro Sanchez on 01-01-2025 Serum or plasma albumin measurement (mass/volume) 3.7 g/dL 3.4-4.8 [facility] Albumin/Globulin [Mass ratio ]Ordered By: Leandro Sanchez on 01-01-2025 Serum or plasma albumin/globulin mass ratio 1.2 RATIO 0.9-2.4 [facility] Anion gap [Moles/Vol]Ordered By: Leandro Sanchez on 01-01-2025 Anion gap in Serum or Plasma 11 5- [facility] Anion gap in Serum or Plasma Ordered By: Leandro Sanchez on 01-01-2025 Anion gap [Moles/Vol] 11 mmol/L - [facility] BUN/creatinine ratioOrdered By: Leandro Sanchez on 01-01-2025 Urea nitrogen/Creatinine [Mass ratio] 8.7 mg/mg Low 10-20 [facility] BUN/creatinine ratio 8.7 RATIO Low 10-[address] [facility] Bilirubin, totalOrdered By: Leandro Sanchez on 01-01-2025 Bilirubin [Mass/Vol] mg/dL 0.00-1.[address] [facility] Bilirubin, total < 0.15 mg/dL 0.00-1.30 [facility] Blood basophils/100 leukocyt esOrdered By: Leandro Sanchez on 01-01-2025 Basophils/100 WBC (Bld) 1 % 0-1 [facility] Blood eosinophils/100 leukoc ytesOrdered By: Leandro Sanchez on 01-01-2025 Eosinophils/100 WBC (Bld) 6 % High 0-5 [facility] Blood lymphocytes/100 leukoc ytesOrdered By: Leandro Sanchez on 01-01-2025 Lymphocytes/100 WBC (Bld) 24 % 19-41 [facility] Blood metamyelocytes/100 scott kocytesOrdered By: Leandro Sanchez on 01-01-2025 Metamyelocytes/100 WBC (Bld) 7 % High 0-1 [facility] Blood metamyelocytes/100 leukocytes 7 % 0-10 [facility] Blood monocytes/100 leukocyt esOrdered By: Leandro Sanchez on 01-01-2025 Monocytes/100 WBC (Bld) 7 % 0-10 [facility] Blood segmented neutrophils/ 100 leukocytesOrdered By: Leandro Sanchez on 01-01-2025 Segmented neutrophils/100 WBC (Bld) 54 % 47-70 [facility] CBC W/Diff, Automatedon 04- PATH REV N/A Normal [facility] Comment on above: Result Comment: AMENDED REPORT 01/01/25 180 PATH REV previously reported as: January Performed By: #### L 500.2500, L100.0100 ####[facility] [address] [place], [address] Calcium [Mass/Vol]Ordered By : Leandro Sanchez on 01-01-2025 Serum or plasma calcium measurement (mass/volume) 9.0 mg/dL 7.6-11.0 [facility] Carbon dioxide, total [Moles /volume] in Central venous bloodOrdered By: Leandro Sanchez on 01-01-2025 CO2 [Moles/Vol] 28.7 mmol/L 21.0-32.0 [facility] Carbon dioxide, total [Moles/volume] in Central venous blood 28.7 mmol/L 21.0-32.0 [facility] Cells counted Molgen (Bld/Ti ss) [#]Ordered By: Leandro Sanchez on 01-01-2025 Total cell count 100 MANUAL DIFF [facility] Chest 1 View (Portable)on Chest 1 View (Portable) Normal [facility] Chloride assayOrdered By: Jose Sanchez on 01-01-2025 Chloride [Moles/Vol] 91 mmol/L Low 98-[address] [facility] Chloride assay 91 mmol/L Low 98-108 [facility] Comprehensive Metabolic Prof ilon 01-01-2025 Albumin [Mass/Vol] 3.7 g/dL Normal 3.4-4.8 [facility] Comment on above: Performed By: #### L 501.2450, L500.4050, L100.0100 ####[facility] [address] [place], [address] Albumin/Globulin [Mass ratio] 1.2 {ratio} Normal 0.9-2.4 [facility] Comment on above: Performed By: #### L 501.2450, L500.4050, L100.0100 ####[facility] [address] [place], [address] ALK PHOS 111 U/L High 35-104 [facility] Comment on above: Performed By: #### L 501.2450, L500.4050, L100.0100 ####[facility] [address] [place], [address] ALT [Catalytic activity/Vol] 8 U/L Normal <=34 [facility] Comment on above: Performed By: #### L 501.2450, L500.4050, L100.0100 ####[facility] [address] [place], [address] AST [Catalytic activity/Vol] 13 U/L Normal <=31 [facility] Comment on above: Performed By: #### L 501.2450, L500.4050, L100.0100 ####[facility] [address] [place], [address] BUN/CRE 8.7 RATIO Low 10-20 [facility] Comment on above: Performed By: #### L 501.2450, L500.4050, L100.0100 ####[facility] [address] [place], [address] Calcium [Mass/Vol] 9.0 mg/dL Normal 7.6-11.0 [facility] Comment on above: Performed By: #### L 501.2450, L500.4050, L100.0100 ####[facility] [address] [place], [address] Chloride [Moles/Vol] 91 mmol/L Low 98-[address] [facility] Comment on above: Performed By: #### L 501.2450, L500.4050, L100.0100 ####[facility] [address] [place], [address] CO2 [Moles/Vol] 28.7 mmol/L Normal 21.0-32.0 [facility] Comment on above: Performed By: #### L 501.2450, L500.4050, L100.0100 ####[facility] [address] [place], [address] Creatinine [Mass/Vol] 0.76 mg/dL Normal 0.70-1.20 [facility] Comment on above: Performed By: #### L 501.2450, L500.4050, L100.0100 ####[facility] [address] [place], [address] ECRCL 69.70 ml/min Normal 50-250 [facility] Comment on above: Performed By: #### L 501.2450, L500.4050, L100.0100 ####[facility] [address] [place], [address] GAP 11 Normal 5-15 [facility] Comment on above: Performed By: #### L 501.2450, L500.4050, L100.0100 ####[facility] [address] [place], [address] GFR/1.73 sq M.predicted among non-blacks MDRD (S/P/Bld) [Vol rate/Area] 89 mL/min/{1.73_m2} Normal >60 [facility] Comment on above: Result Comment: mL/m in/1.73m2 CKD-EPI Creatinine Equation (2020) Performed By: #### L 501.2450, L500.4050, L100.0100 ####[facility] [address] [place], [address] Globulin (S) [Mass/Vol] 3.2 g/dL Normal 2.2-4.2 [facility] Comment on above: Performed By: #### L 501.2450, L500.4050, L100.0100 ####[facility] [address] [place], [address] Glucose [Mass/Vol] 111 mg/dL High 70-99 [facility] Comment on above: Performed By: #### L 501.2450, L500.4050, L100.0100 ####[facility] [address] [place], [address] Potassium [Moles/Vol] 4.0 mmol/L Normal 3.3-5.1 [facility] Comment on above: Performed By: #### L 501.2450, L500.4050, L100.0100 ####[facility] [address] [place], [address] Sodium [Moles/Vol] 130 mmol/L Low 133-145 [facility] Comment on above: Performed By: #### L 501.2450, L500.4050, L100.0100 ####[facility] [address] [place], [address] T BILI < 0.15 Normal 0.00-1.30 [facility] Comment on above: Performed By: #### L 501.2450, L500.4050, L100.0100 ####[facility] [address] [place], [address] T PROT 6.9 g/dL Normal 5.9-8.4 [facility] Comment on above: Performed By: #### L 501.2450, L500.4050, L100.0100 ####[facility] [address] [place], [address] Urea nitrogen [Mass/Vol] 7 mg/dL Normal 4-19 [facility] Comment on above: Performed By: #### L 501.2450, L500.4050, L100.0100 ####[facility] [address] [place], [address] Creatinine [Mass/Vol]Ordered By: Leandro Sanchez on 01-01-2025 Serum creatinine measurement (mass/volume) 0.76 mg/dL 0.70-1.20 [facility] Emergency Department Summary on 01-01-2025 Emergency Department Summary Normal [facility] Eosinophils/100 WBC (Bld)Ord ered By: Leandro Sanchez on 01-01-2025 Blood eosinophils/100 leukocytes 6 % High 0-5 [facility] Erythrocyte distribution wid th (RBC) [Ratio]Ordered By: Leandro Sanchez on 01-01-2025 Erythrocyte distribution width ratio 15.2 % High 11.6-14.6 [facility] Erythrocyte distribution width standard deviation 47.7 fl High 35.1-43.9 [facility] Erythrocyte distribution wid th ratioOrdered By: Leandro Sanchez on 01-01-2025 Erythrocyte distribution width (RBC) [Ratio] 15.2 % High 11.6-14.6 [facility] Erythrocyte distribution wid th standard deviationOrdered By: Leandro Sanchez on 01-01-2025 Erythrocyte distribution width (RBC) [Ratio] 47.7 fl High 35.1-43.9 [facility] Estimation of creatinine binu aranceOrdered By: Leandro Sanchez on 01-01-2025 Estimation of creatinine clearance 69.70 ml/min 50-250 [facility] GFR/1.73 sq M.predicted gregory g non-blacks MDRD (S/P/Bld) [Vol rate/Area]Ordered By: Leandro Sanchez on 01-01-2025 Glomerular filtration rate (GFR) estimation/1.73 sq m using serum, plasma, or whole b 89 >60 [facility] Glomerular filtration rate ( GFR) estimation/1.73 sq m using serum, plasma, or whole bOrdered By: Leandro Sanchez on 01-01-2025 GFR/1.73 sq M.predicted among non-blacks MDRD (S/P/Bld) [Vol rate/Area] 89 mL/min/{1.73_m2} >60 [facility] Glucose [Mass/Vol]Ordered By : Leandro Sanchez on 01-01-2025 Serum glucose measurement (mass/volume) 111 mg/dL High 70-99 [facility] Hematocrit Auto (Bld) [Volum e fraction]Ordered By: Leandro Sanchez on 01-01-2025 Hematocrit (Bld) [Volume fraction] 39.1 % 37-47 [facility] Automated blood hematocrit (percentage) 39.1 % 37-47 [facility] Hemoglobin measurementOrdere d By: Leandro Sanchez on 01-01-2025 Hemoglobin (Bld) [Mass/Vol] 12.0 g/dL 12.0-15.0 [facility] Hemoglobin measurement 12.0 g/dL 12.0-15.0 [facility] Lipaseon 01-01-2025 Lipase [Catalytic activity/Vol] 75 U/L Normal 13-75 [facility] Comment on above: Result Comment: Jenny capellan note:LIPASE revised reference range effective 23.New Lipase methodology. Expected to produce lower valuesthan the previous assay method.NEW Reference Range: 13 - 75 U/L Performed By: #### L 501.2450, L500.4050, L100.0100 ####[facility] [address] [place], [address] Lipase measurementOrdered By : Leandro Sanchez on 01-01-2025 Lipase measurement 75 U/L 13-75 [facility] Lymphocytes Auto (Unsp spec) [#/Vol]Ordered By: Leandro Sanchez on 01-01-2025 Absolute lymphocyte count 3.90 X10^3/uL 0.83-4.51 [facility] Lymphocytes/100 WBC (Bld)Ord ered By: Leandro Sanchez on 01-01-2025 Blood lymphocytes/100 leukocytes 24 % 19-41 [facility] MCV (RBC) [Entitic vol]Order ed By: Leandro Sanchez on 01-01-2025 MCV (mean corpuscular volume) determination 86.7 fL 81-99 [facility] MCV (mean corpuscular volume ) determinationOrdered By: Leandro Sanchez on 01-01-2025 MCV (RBC) [Entitic vol] 86.7 fL 81-99 [facility] Mean corpuscular hemoglobin (MCH) determinationOrdered By: Leandro Sanchez on 01-01-2025 MCH (RBC) [Entitic mass] 26.6 pg Low 27.0-32.0 [facility] Mean corpuscular hemoglobin (MCH) determination 26.6 pg Low 27.0-32.0 [facility] Mean corpuscular hemoglobin concentration (MCHC) determinationOrdered By: Leandro Sanchez on 01-01-2025 Mean corpuscular hemoglobin concentration (MCHC) determination 30.7 g/dL Low 32-36 [facility] Mean platelet volume determi nationOrdered By: Leandro Sanchez on 01-01-2025 Mean platelet volume determination 8.9 fl 6.2-12.0 [facility] Microcytosis evaluation pane lOrdered By: Leandro Sanchez on 01-01-2025 Microcytosis evaluation panel 1+ [facility] Myelocyte %Ordered By: Leandro Sanchez on 01-01-2025 Myelocyte % 1 % 0-1 [facility] Neutrophil percentageOrdered By: Leandro Sanchez on 01-01-2025 Neutrophil percentage Not Reportable [facility] No Panel InformationOrdered By: Leandro Sanchez on 01-01-2025 13 U/L <32 [facility] Pathologist review Geovany (Unsp spec) [Interp]Ordered By: Leandro Sanchez on 01-01-2025 Review by pathologist Tiesha gotti [facility] Platelet countOrdered By: Jose Sanchez on 01-01-2025 Platelets (Bld) [#/Vol] 553 10*3/uL High 150-450 [facility] Platelet count 553 K/mm3 High 150-450 [facility] Potassium (Unsp spec) [Mass/ Vol]Ordered By: Leandro Sanchez on 01-01-2025 Potassium measurement (mass/volume) 4.0 mmol/L 3.3-5.1 [facility] Potassium measurement (mass/ volume)Ordered By: Leandro Sanchez on 01-01-2025 Potassium (Unsp spec) [Mass/Vol] 4.0 mmol/L 3.3-5.1 [facility] RBC Auto (Bld) [#/Vol]Ordere d By: Leandro Sanchez on 01-01-2025 RBC (Bld) [#/Vol] 4.51 10*6/uL 4.2-5.4 [facility] Automated blood erythrocyte count 4.51 M/mm3 4.2-5.4 [facility] Review by pathologistOrdered By: Leandro Sanchez on 01-01-2025 Pathologist review Geovany (Unsp spec) [Interp] N/A [facility] Segmented neutrophils/100 WB C (Bld)Ordered By: Leandro Sanchez on 01-01-2025 Blood segmented neutrophils/100 leukocytes 54 % 47-70 [facility] Serum creatinine measurement (mass/volume)Ordered By: Leandro Sanchez on 01-01-2025 Creatinine [Mass/Vol] 0.76 mg/dL 0.70-1.20 [facility] Serum globulin measurementOr dered By: Leandro Sanchez on 01-01-2025 Globulin (S) [Mass/Vol] 3.2 g/dL 2.2-4.2 [facility] Serum globulin measurement 3.2 g/dL 2.2-4.2 [facility] Serum glucose measurement (m ass/volume)Ordered By: Leandro Sanchez on 01-01-2025 Glucose [Mass/Vol] 111 mg/dL High 70-99 [facility] Serum or plasma alanine pimentel otransferase (ALT) measurementOrdered By: Leandro Sanchez on 01-01-2025 ALT [Catalytic activity/Vol] 8 U/L <35 [facility] Serum or plasma albumin esthela urement (mass/volume)Ordered By: Leandro Sanchez on 01-01-2025 Albumin [Mass/Vol] 3.7 g/dL 3.4-4.8 [facility] Serum or plasma albumin/glob ulin mass ratioOrdered By: Leandro Sanchez on 01-01-2025 Albumin/Globulin [Mass ratio] 1.2 {ratio} 0.9-2.4 [facility] Serum or plasma alkaline jose sphatase measurementOrdered By: Leandro Sanchez on 01-01-2025 ALP [Catalytic activity/Vol] 111 U/L High 35-104 [facility] Serum or plasma calcium esthela urement (mass/volume)Ordered By: Leandro Sanchez on 01-01-2025 Calcium [Mass/Vol] 9.0 mg/dL 7.6-11.0 [facility] Serum or plasma urea nitroge n measurement (mass/volume)Ordered By: Leandro Sanchez on 01-01-2025 Urea nitrogen [Mass/Vol] 7 mg/dL 4-19 [facility] Sodium levelOrdered By: Leandro Sanchez on 01-01-2025 Sodium [Moles/Vol] 130 mmol/L Low 133-145 [facility] Sodium level 130 mmol/L Low 133-145 [facility] Total cell countOrdered By: Leandro Sanchez on 01-01-2025 Cells counted Molgen (Bld/Tiss) [#] 100 MANUAL DIFF [facility] Total proteinOrdered By: Bhargavi Sanchez on 01-01-2025 Protein [Mass/Vol] 6.9 g/dL 5.9-8.4 [facility] Total protein 6.9 g/dL 5.9-8.4 [facility] Urea nitrogen [Mass/Vol]Orde red By: Leandro Sanchez on 01-01-2025 Serum or plasma urea nitrogen measurement (mass/volume) 7 mg/dL -19 [facility] White blood cell (WBC) count Ordered By: Leandro Sanchez on 01-01-2025 WBC (Bld) [#/Vol] 16.5 10*3/uL High 4.4-11.0 [facility] White blood cell (WBC) count 16.5 K/mm3 High 4.4-11.0 [facility] CNPNon 12-27-2024 CNPN Telephone (DDQ) GRACIE BANUELOS ([id number]) 1965 F Date Time Provider Department 12/27/24 JUAN SENIOR During your visit today, we recorded the following information about you: Dayana Bone 12/27/2024 1:17 PM Signed Patient called the office and would like a call back to discuss current health changes. Patient stated that she had to cancel her procedure due to her recent hospital stay. Patients stated that she was in the hospital for a week due to her COPD. Please review and advise. Lyric Velazquez 12/28/2024 8:53 AM Signed Outside pulmonary function test AND CT lung screen results scanned in Epic Juan Abbott LPN 12/28/2024 3:02 PM Signed VM left for Gracie Banuelos to discuss current symptoms Offered to call office for discussion. MCKENNA Le Patricia 12/28/2024 3:14 PM Signed Patient returned call. Can be reached at: [phone] (home) Juan Bloom LPN 12/28/2024 3:45 PM Signed Spoke with patient - was recently admitted for COPD - was on 12 liters O2- currently at home and on 5 L of Oxygen NC- her pulmonology team would like her to wait until she is down to 1 Liter O2 - prior to completing EUS/CPB. I discussed with patient that she would need her pulomonology team to send up written confirmation of proceeding with EUS/CPB We may also need patient to see [facility] prior to procedure as well. Informed that I would send additional information to Juan Senior for review. Patient has Pain Management on 01/05 she does have current C/O abdominal pain- I did discuss her taking tylenol, ibuprofen to help with pain- which she states does help a bit, but is wondering if she could get some pain medication until her pain management appointment. I informed her that I would notify Juan Senior as well MCKENNA Lehaily Doherty Noemí 01/04/2025 3:16 PM Signed Patient called back. She would like to speak with Juan Senior to touch base. She has a pain management appt at 1:00 tomorrow. [phone] (home) Juan Senior APRN.DAYTIME CAREGIVER 01/05/2025 10:42 AM Signed Spoke with patient. She says she is feeling better but still experiencing abdominal pain. Has been going to ER in [place] for IV Morphine, they also give her PO Toradol to go home with. She has an appointment with pain management today. She is down to 5 L NC, reports she quit drinking and is down to 6 cigarettes a day. Order placed for [facility] clinic to assess readiness for repeat ERCP procedure. Patient agreeable to plan with all questions answered. Juan Senior APRN.DAYTIME CAREGIVER 01/05/2025 10:45 AM Signed Addended by: JUAN SENIOR on: 01/05/2025 10:45 AM Modules accepted: Orders Allergies As of Date: 12/27/2024 Noted Allergy Reaction BACTRIM (SULFAMETHOXAZOLE-TRIME TH*11/28/2022 4 - Hives HYDROCODONE 08/02/2020 9 - Itching PENICILLINS 07/07/2006 14 - Other: See Comments Comments: hives VALIUM (DIAZEPAM) 11/02/2013 14 - Other: See Comments Comments: cross reaction with alcohol addiction Date Reviewed: 12/19/2024 Reviewed by: Tara Youngblood APRN.DAYTIME CAREGIVER - Fully Assessed Reason for Visit: Patient Update [1234] Primary Visit Diagnosis:Pulmonary emphysema, unspecified emphysema type (HCC) [J43.9] Other Visit Diagnoses: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 Use over 5-15minutes. - ondansetron orally disintegrating (ZOFRAN ODT) 4 mg disintegrating tablet Take 1 tablet by mouth every 6 hours as needed for nausea/vomiting. - pantoprazole DR (PROTONIX) 40 mg tablet Take 1 tablet by mouth once daily. - metoprolol tartrate, short acting, (LOPRESSOR) 25 mg tablet Take 1 tablet by mouth two times a day. - amLODIPine (NORVASC) 5 mg tablet Take 1 tablet by mouth once daily. - hydrOXYzine HCl (ATARAX) 25 mg tablet Take 1 tablet by mouth three times a day as needed for itching/rash. - MUCINEX D MAXIMUM STRENGTH 120-1,200 mg tab ER 12 hr Take 1 tablet by mouth as needed. - Cholecalciferol, Vitamin D3, 50 mcg (2,000 unit) cap Take 1 capsule by mouth once daily. - predniSONE (DELTASONE) 20 mg tablet Take 2 tablets by mouth once daily. - ziprasidone (GEODON) 40 mg capsule Take 1 capsule by mouth at bedtime as needed. - hydrOXYzine pamoate (VISTARIL) 25 mg capsule Take 1 capsule by mouth daily at bedtime. - lisinopril (ZESTRIL) 10 mg tablet Take 1 tablet by mouth once daily. - simvastatin (ZOCOR) 20 mg tablet Take 1 tablet by mouth daily at bedtime. - Benzonatate 200 mg capsule (more content not included)... Normal [facility] ALP [Catalytic activity/Vol] Ordered By: Mo Velasco on 12-24-2024 Serum or plasma alkaline phosphatase measurement 117 U/L High 35-104 [facility] ALT [Catalytic activity/Vol] Ordered By: Mo Velasco on 12-24-2024 Serum or plasma alanine aminotransferase (ALT) measurement 18 U/L <35 [facility] Absolute lymphocyte countOrd ered By: Mo Velasco on 12-24-2024 Lymphocytes Auto (Unsp spec) [#/Vol] 2.44 10*3/uL 0.83-4.51 [facility] Absolute neutrophil countOrd ered By: Mo Velasco on 12-24-2024 Absolute neutrophil count 14.1 X10^3/uL High 2.0-7.7 [facility] Albumin [Mass/Vol]Ordered By : Mo Velasco on 12-24-2024 Serum or plasma albumin measurement (mass/volume) 3.4 g/dL 3.4-4.8 [facility] Anion gap [Moles/Vol]Ordered By: Mo Velasco on 12-24-2024 Anion gap in Serum or Plasma 13 5-15 [facility] Anion gap in Serum or Plasma Ordered By: Mo Velasco on 12-24-2024 Anion gap [Moles/Vol] 13 mmol/L 5-15 [facility] Automated lymphocyte count a s percentage of total leukocytesOrdered By: Mo Velasco on 12-24-2024 Lymphocytes/100 WBC Auto (Unsp spec) 13.4 % Low 19-41 [facility] BUN/creatinine ratioOrdered By: Mo Velasco on 12-24-2024 Urea nitrogen/Creatinine [Mass ratio] 4.2 mg/mg Low 10-20 [facility] BUN/creatinine ratio 4.2 RATIO Low 10-[address] [facility] Basic Metabolic Profile (BMP )on 12-24-2024 BUN/CRE 4.2 RATIO Low 10-20 [facility] Comment on above: Performed By: #### L 100.0100, L501.2450, L500.2500, L500.3400 ####[facility] [address] [place], [address] Calcium [Mass/Vol] 9.3 mg/dL Normal 7.6-11.0 [facility] Comment on above: Performed By: #### L 100.0100, L501.2450, L500.2500, L500.3400 ####[facility] [address] [place], [place], [address] Chloride [Moles/Vol] 97 mmol/L Low 98-[address] [facility] Comment on above: Performed By: #### L 100.0100, L501.2450, L500.2500, L500.3400 ####[facility] [address] [place], [address] CO2 [Moles/Vol] 28.1 mmol/L Normal 21.0-32.0 [facility] Comment on above: Performed By: #### L 100.0100, L501.2450, L500.2500, L500.3400 ####[facility] [address] [place], [address] Creatinine [Mass/Vol] 0.77 mg/dL Normal 0.70-1.20 [facility] Comment on above: Performed By: #### L 100.0100, L501.2450, L500.2500, L500.3400 ####[facility] [address] [place], [address] ECRCL 63.47 ml/min Normal 50-250 [facility] Comment on above: Performed By: #### L 100.0100, L501.2450, L500.2500, L500.3400 ####[facility] [address] [place], [address] GAP 13 Normal 5-15 [facility] Comment on above: Performed By: #### L 100.0100, L501.2450, L500.2500, L500.3400 ####[facility] [address] [place], [address] GFR/1.73 sq M.predicted among non-blacks MDRD (S/P/Bld) [Vol rate/Area] 88 mL/min/{1.73_m2} Normal >60 [facility] Comment on above: Result Comment: mL/m in/1.73m2 CKD-EPI Creatinine Equation (2020) Performed By: #### L 100.0100, L501.2450, L500.2500, L500.3400 ####[facility] [address] [place], [address] Glucose [Mass/Vol] 131 mg/dL High 70-99 [facility] Comment on above: Performed By: #### L 100.0100, L501.2450, L500.2500, L500.3400 ####[facility] [address] [place], [address] Potassium [Moles/Vol] 4.1 mmol/L Normal 3.3-5.1 [facility] Comment on above: Performed By: #### L 100.0100, L501.2450, L500.2500, L500.3400 ####[facility] [address] [place], [address] Sodium [Moles/Vol] 137 mmol/L Normal 133-145 [facility] Comment on above: Performed By: #### L 100.0100, L501.2450, L500.2500, L500.3400 ####[facility] [address] [place], [address] Urea nitrogen [Mass/Vol] 3 mg/dL Low 4-19 [facility] Comment on above: Performed By: #### L 100.0100, L501.2450, L500.2500, L500.3400 ####[facility] [address] [place], [address] Basophil percentageOrdered B y: Mo Velasco on 12-24-2024 Basophils/100 WBC (Bld) 0.7 % 0-1 [facility] 0.7 % 0[facility] Bilirubin directOrdered By: Mo Velasco on 12-24-2024 Bilirubin.direct [Mass/Vol] 0.09 mg/dL 0.00-0.30 [facility] Bilirubin, totalOrdered By: Mo Velasco on 12-24-2024 Bilirubin [Mass/Vol] 0.19 mg/dL 0.00-1.[address] [facility] Bilirubin, total 0.19 mg/dL 0.00-1.30 [facility] Bilirubin.direct [Mass/Vol]O rdered By: Mo Velasco on 12-24-2024 Bilirubin direct 0.09 mg/dL 0.00-0.30 [facility] CBC W/Diff, Automatedon 11-27 Absolute Lymph 2.44 X10 3/uL Normal 0.83-4.51 [facility] Comment on above: Performed By: #### L 100.0100, L501.2450, L500.2500, L500.3400 ####[facility] [address] [place], [address] Absolute Neut 14.1 X10 3/uL High 2.0-7.7 [facility] Comment on above: Performed By: #### L 100.0100, L501.2450, L500.2500, L500.3400 ####[facility] [address] [place], [address] Basophils/100 WBC (Bld) 0.7 % Normal 0-1 [facility] Comment on above: Performed By: #### L 100.0100, L501.2450, L500.2500, L500.3400 ####[facility] [address] [place], [address] Eosinophils/100 WBC (Bld) 2.3 % Normal 0-5 [facility] Comment on above: Performed By: #### L 100.0100, L501.2450, L500.2500, L500.3400 ####[facility] [address] [place], [address] Erythrocyte distribution width (RBC) [Ratio] 14.6 % Normal 11.6-14.6 [facility] Comment on above: Performed By: #### L 100.0100, L501.2450, L500.2500, L500.3400 ####[facility] [address] [place], [address] Hematocrit (Bld) [Volume fraction] 33.8 % Low 37-47 [facility] Comment on above: Performed By: #### L 100.0100, L501.2450, L500.2500, L500.3400 ####[facility] [address] [place], [address] Hemoglobin (Bld) [Mass/Vol] 10.8 g/dL Low 12.0-15.0 [facility] Comment on above: Performed By: #### L 100.0100, L501.2450, L500.2500, L500.3400 ####[facility] [address] [place], [address] IG% 0.900 Normal 0.0-0.9 [facility] Comment on above: Result Comment: IG% - Immature Granulocytes (promyelocytes, myelocytes andmetamyelocytes) > 1% indicates that a LEFT SHIFT is Present. Performed By: #### L 100.0100, L501.2450, L500.2500, L500.3400 ####[facility] [address] [place], [address] Lymphocytes/100 WBC (Bld) 13.4 % Low 19-41 [facility] Comment on above: Performed By: #### L 100.0100, L501.2450, L500.2500, L500.3400 ####[facility] [address] [place], [address] MCH (RBC) [Entitic mass] 26.9 pg Low 27.0-32.0 [facility] Comment on above: Performed By: #### L 100.0100, L501.2450, L500.2500, L500.3400 ####[facility] [address] [place], [address] MCHC (RBC) [Mass/Vol] 32.0 g/dL Normal 32-36 [facility] Comment on above: Performed By: #### L 100.0100, L501.2450, L500.2500, L500.3400 ####[facility] [address] [place], [address] MCV (RBC) [Entitic vol] 84.1 fL Normal 81-99 [facility] Comment on above: Performed By: #### L 100.0100, L501.2450, L500.2500, L500.3400 ####[facility] [address] [place], [address] Monocytes/100 WBC (Bld) 5.5 % Normal 0-10 [facility] Comment on above: Performed By: #### L 100.0100, L501.2450, L500.2500, L500.3400 ####[facility] [address] [place], [address] Neutrophils/100 WBC (Bld) 77.2 % High 47-70 [facility] Comment on above: Performed By: #### L 100.0100, L501.2450, L500.2500, L500.3400 ####[facility] [address] [place], [address] Nucleated RBC (Bld) [#/Vol] 0 10*3/uL Normal 0-5 [facility] Comment on above: Performed By: #### L 100.0100, L501.2450, L500.2500, L500.3400 ####[facility] [address] [place], [address] Platelet mean volume (Bld) [Entitic vol] 9.3 fL Normal 6.2-12.0 [facility] Comment on above: Performed By: #### L 100.0100, L501.2450, L500.2500, L500.3400 ####[facility] [address] [place], [address] Platelets (Bld) [#/Vol] 396 10*3/uL Normal 150-450 [facility] Comment on above: Performed By: #### L 100.0100, L501.2450, L500.2500, L500.3400 ####[facility] [address] [place], [address] RBC (Bld) [#/Vol] 4.02 10*6/uL Low 4.2-5.4 [facility] Comment on above: Performed By: #### L 100.0100, L501.2450, L500.2500, L500.3400 ####[facility] [address] [place], [address] RDW SD 45.1 fl High 35.1-43.9 [facility] Comment on above: Performed By: #### L 100.0100, L501.2450, L500.2500, L500.3400 ####[facility] [address] [place], [address] WBC (Bld) [#/Vol] 18.2 10*3/uL High 4.4-11.0 [facility] Comment on above: Performed By: #### L 100.0100, L501.2450, L500.2500, L500.3400 ####[facility] [address] [place], [address] Calcium [Mass/Vol]Ordered By : Mo Velasco on 12-24-2024 Serum or plasma calcium measurement (mass/volume) 9.3 mg/dL 7.6-11.0 [facility] Carbon dioxide, total [Moles /volume] in Central venous bloodOrdered By: Mo Velasco on 12-24-2024 CO2 [Moles/Vol] 28.1 mmol/L 21.0-32.0 [facility] Carbon dioxide, total [Moles/volume] in Central venous blood 28.1 mmol/L 21.0-32.0 [facility] Chloride assayOrdered By: Roman Velasco on 12-24-2024 Chloride [Moles/Vol] 97 mmol/L Low 98-[address] [facility] Chloride assay 97 mmol/L Low 98-108 [facility] Creatinine [Mass/Vol]Ordered By: Mo Velasco on 12-24-2024 Serum creatinine measurement (mass/volume) 0.77 mg/dL 0.70-1.20 [facility] Emergency Department Summary on 12-24-2024 Emergency Department Summary Normal [facility] Eosinophil percentageOrdered By: Mo Velasco on 12-24-2024 Eosinophils/100 WBC (Bld) 2.3 % 0-5 [facility] Eosinophil percentage 2.3 % 0-5 [facility] Erythrocyte distribution wid th (RBC) [Ratio]Ordered By: Mo Velasco on 12-24-2024 Erythrocyte distribution width ratio 14.6 % 11.6-14.6 [facility] Erythrocyte distribution wid th ratioOrdered By: Mo Velasco on 12-24-2024 Erythrocyte distribution width (RBC) [Ratio] 14.6 % 11.6-14.6 [facility] Erythrocyte distribution wid th standard deviationOrdered By: Mo Velasco on 12-24-2024 Erythrocyte distribution width (RBC) [Ratio] 45.1 fl High 35.1-43.9 [facility] Erythrocyte distribution width standard deviation 45.1 fl High 35.1-43.9 [facility] Estimation of creatinine binu aranceOrdered By: Mo Velasco on 12-24-2024 Estimation of creatinine clearance 63.47 ml/min 50-250 [facility] GFR/1.73 sq M.predicted gregory g non-blacks MDRD (S/P/Bld) [Vol rate/Area]Ordered By: Mo Velasco on 12-24-2024 Glomerular filtration rate (GFR) estimation/1.73 sq m using serum, plasma, or whole b 88 >60 [facility] Glomerular filtration rate ( GFR) estimation/1.73 sq m using serum, plasma, or whole bOrdered By: Mo Velasco on 12-24-2024 GFR/1.73 sq M.predicted among non-blacks MDRD (S/P/Bld) [Vol rate/Area] 88 mL/min/{1.73_m2} >60 [facility] Glucose [Mass/Vol]Ordered By : Mo Velasco on 12-24-2024 Serum glucose measurement (mass/volume) 131 mg/dL High 70-99 [facility] Hematocrit Auto (Bld) [Volum e fraction]Ordered By: Mo Velasco on 12-24-2024 Hematocrit (Bld) [Volume fraction] 33.8 % Low 37-47 [facility] Automated blood hematocrit (percentage) 33.8 % Low 37-47 [facility] Hemoglobin measurementOrdere d By: Mo Velasco on 12-24-2024 Hemoglobin (Bld) [Mass/Vol] 10.8 g/dL Low 12.0-15.0 [facility] Hemoglobin measurement 10.8 g/dL Low 12.0-15.0 [facility] Immature granulocytes/100 WB C Auto (Bld)Ordered By: Mo Velasco on 12-24-2024 Immature granulocytes/100 WBC (Bld) 0.900 % 0.0-0.9 [facility] Automated immature granulocyte percentage 0.900 % 0.0-0.9 [facility] Lipaseon 12-24-2024 Lipase [Catalytic activity/Vol] 34 U/L Normal 13-75 [facility] Comment on above: Result Comment: Jenny capellan note:LIPASE revised reference range effective 23.New Lipase methodology. Expected to produce lower valuesthan the previous assay method.NEW Reference Range: 13 - 75 U/L Performed By: #### L 100.0100, L501.2450, L500.2500, L500.3400 ####[facility] [address] [place], [address] Lipase measurementOrdered By : Mo Velasco on 12-24-2024 Lipase measurement 34 U/L 13-75 [facility] Liver Profileon 12-24-2024 Albumin [Mass/Vol] 3.4 g/dL Normal 3.4-4.8 [facility] Comment on above: Performed By: #### L 100.0100, L501.2450, L500.2500, L500.3400 ####[facility] [address] [place], [address] ALK PHOS 117 U/L High 35-104 [facility] Comment on above: Performed By: #### L 100.0100, L501.2450, L500.2500, L500.3400 ####[facility] [address] [place], [address] ALT [Catalytic activity/Vol] 18 U/L Normal <=34 [facility] Comment on above: Performed By: #### L 100.0100, L501.2450, L500.2500, L500.3400 ####[facility] [address] [place], [address] AST [Catalytic activity/Vol] 16 U/L Normal <=31 [facility] Comment on above: Performed By: #### L 100.0100, L501.2450, L500.2500, L500.3400 ####[facility] [address] [place], [address] Bilirubin [Mass/Vol] 0.19 mg/dL Normal 0.00-1.[address] [facility] Comment on above: Performed By: #### L 100.0100, L501.2450, L500.2500, L500.3400 ####[facility] [address] [place], [address] Bilirubin.direct [Mass/Vol] 0.09 mg/dL Normal 0.00-0.30 [facility] Comment on above: Performed By: #### L 100.0100, L501.2450, L500.2500, L500.3400 ####[facility] [address] [place], [address] Globulin (S) [Mass/Vol] 3.7 g/dL Normal 2.2-4.2 [facility] Comment on above: Performed By: #### L 100.0100, L501.2450, L500.2500, L500.3400 ####[facility] [address] [place], [address] T PROT 7.1 g/dL Normal 5.9-8.4 [facility] Comment on above: Performed By: #### L 100.0100, L501.2450, L500.2500, L500.3400 ####[facility] [address] [place], [address] Lymphocytes Auto (Unsp spec) [#/Vol]Ordered By: Mo Velasco on 12-24-2024 Absolute lymphocyte count 2.44 X10^3/uL 0.83-4.51 [facility] Lymphocytes/100 WBC Auto (Un sp spec)Ordered By: Mo Velasco on 12-24-2024 Automated lymphocyte count as percentage of total leukocytes 13.4 % Low 19-41 [facility] MCV (RBC) [Entitic vol]Order ed By: Mo Velasco on 12-24-2024 MCV (mean corpuscular volume) determination 84.1 fL 81-99 [facility] MCV (mean corpuscular volume ) determinationOrdered By: Mo Velasco on 12-24-2024 MCV (RBC) [Entitic vol] 84.1 fL 81-99 [facility] Mean corpuscular hemoglobin (MCH) determinationOrdered By: Mo Velasco on 12-24-2024 MCH (RBC) [Entitic mass] 26.9 pg Low 27.0-32.0 [facility] Mean corpuscular hemoglobin (MCH) determination 26.9 pg Low 27.0-32.0 [facility] Mean corpuscular hemoglobin concentration (MCHC) determinationOrdered By: Mo Velasco on 12-24-2024 Mean corpuscular hemoglobin concentration (MCHC) determination 32.0 g/dL 32-36 [facility] Mean platelet volume determi nationOrdered By: Mo Velasco on 12-24-2024 Mean platelet volume determination 9.3 fl 6.2-12.0 [facility] Monocyte percentageOrdered B y: Mo Le on 12-24-2024 Monocytes/100 WBC (Bld) 5.5 % 0-10 [facility] Monocyte percentage 5.5 % 0-10 [facility] Neutrophil percentageOrdered By: Mo Velasco on 12-24-2024 Neutrophils/100 WBC (Bld) 77.2 % High 47-70 [facility] Neutrophil percentage 77.2 % High 47-70 [facility] No Panel InformationOrdered By: Mo Velasco on 12-24-2024 16 U/L <32 [facility] Nucleated red blood cell per centageOrdered By: Mo Velasco on 12-24-2024 Nucleated red blood cell percentage 0 % 0-5 [facility] Platelet countOrdered By: Roman Velasco on 12-24-2024 Platelets (Bld) [#/Vol] 396 10*3/uL 150-450 [facility] Platelet count 396 K/mm3 150-450 [facility] Potassium (Unsp spec) [Mass/ Vol]Ordered By: Mo Velasco on 12-24-2024 Potassium measurement (mass/volume) 4.1 mmol/L 3.3-5.1 [facility] Potassium measurement (mass/ volume)Ordered By: Mo Velasco on 12-24-2024 Potassium (Unsp spec) [Mass/Vol] 4.1 mmol/L 3.3-5.1 [facility] RBC Auto (Bld) [#/Vol]Ordere d By: Mo Velasco on 12-24-2024 RBC (Bld) [#/Vol] 4.02 10*6/uL Low 4.2-5.4 [facility] Automated blood erythrocyte count 4.02 M/mm3 Low 4.2-5.4 [facility] Serum creatinine measurement (mass/volume)Ordered By: Mo Velasco on 12-24-2024 Creatinine [Mass/Vol] 0.77 mg/dL 0.70-1.20 [facility] Serum globulin measurementOr dered By: Mo Velasco on 12-24-2024 Globulin (S) [Mass/Vol] 3.7 g/dL 2.2-4.2 [facility] Serum globulin measurement 3.7 g/dL 2.2-4.2 [facility] Serum glucose measurement (m ass/volume)Ordered By: Mo Velasco on 12-24-2024 Glucose [Mass/Vol] 131 mg/dL High 70-99 [facility] Serum or plasma alanine pimentel otransferase (ALT) measurementOrdered By: Mo Velasco on 12-24-2024 ALT [Catalytic activity/Vol] 18 U/L <35 [facility] Serum or plasma albumin esthela urement (mass/volume)Ordered By: Mo Velasco on 12-24-2024 Albumin [Mass/Vol] 3.4 g/dL 3.4-4.8 [facility] Serum or plasma alkaline jose sphatase measurementOrdered By: Mo Velasco on 12-24-2024 ALP [Catalytic activity/Vol] 117 U/L High 35-104 [facility] Serum or plasma calcium esthela urement (mass/volume)Ordered By: Mo Velasco on 12-24-2024 Calcium [Mass/Vol] 9.3 mg/dL 7.6-11.0 [facility] Serum or plasma urea nitroge n measurement (mass/volume)Ordered By: Mo Velasco on 12-24-2024 Urea nitrogen [Mass/Vol] 3 mg/dL Low 4-19 [facility] Sodium levelOrdered By: Mo Velasco on 12-24-2024 Sodium [Moles/Vol] 137 mmol/L 133-145 [facility] Sodium level 137 mmol/L 133-145 [facility] Total proteinOrdered By: Bruce Velasco on 12-24-2024 Protein [Mass/Vol] 7.1 g/dL 5.9-8.4 [facility] Total protein 7.1 g/dL 5.9-8.4 [facility] Urea nitrogen [Mass/Vol]Orde red By: Mo Velasco on 12-24-2024 Serum or plasma urea nitrogen measurement (mass/volume) 3 mg/dL Low 4-19 [facility] White blood cell (WBC) count Ordered By: Mo Velasco on 12-24-2024 WBC (Bld) [#/Vol] 18.2 10*3/uL High 4.4-11.0 [facility] White blood cell (WBC) count 18.2 K/mm3 High 4.4-11.0 [facility] CNPNon 12-23-2024 CNPN Telephone (GAPRA3) GRACIE BANUELOS ([id number]) 1965 F Date Time Provider Department 12/23/24 RAISA JIMENEZ [facility] During your visit today, we recorded the following information about you: Raisa Jimenez, RN 12/23/2024 12:32 PM Signed Spoke with pt and went over instructions and directions for her appt on 12/27/24. Pt wrote down verbal instructions and confirmed understanding Raisa Lozano) MA Allergies As of Date: 12/23/2024 Noted Allergy Reaction BACTRIM (SULFAMETHOXAZOLE-TRIME TH*11/28/2022 4 - Hives HYDROCODONE 08/02/2020 9 - Itching PENICILLINS 07/07/2006 14 - Other: See Comments Comments: hives VALIUM (DIAZEPAM) 11/02/2013 14 - Other: See Comments Comments: cross reaction with alcohol addiction Date Reviewed: 12/19/2024 Reviewed by: Tara Youngblood APRN.[employer]TIME CAREGIVER - Fully Assessed Reason for Visit: Reminder Call [[phone]] Cmt: Missed call Prescriptions as of 12/23/2024 - pantoprazole DR (PROTONIX) 40 mg tablet Take 1 tablet by mouth once daily. - metoprolol tartrate, short acting, (LOPRESSOR) 25 mg tablet Take 1 tablet by mouth two times a day. - amLODIPine (NORVASC) 5 mg tablet Take 1 tablet by mouth once daily. - hydrOXYzine HCl (ATARAX) 25 mg tablet Take 1 tablet by mouth three times a day as needed for itching/rash. - MUCINEX D MAXIMUM STRENGTH 120-1,200 mg tab ER 12 hr Take 1 tablet by mouth as needed. - Cholecalciferol, Vitamin D3, 50 mcg (2,000 unit) cap Take 1 capsule by mouth once daily. - predniSONE (DELTASONE) 20 mg tablet Take 2 tablets by mouth once daily. - ondansetron orally disintegrating (ZOFRAN ODT) 4 mg disintegrating tablet Take 1 tablet by mouth every 6 hours as needed for nausea/vomiting. - ziprasidone (GEODON) 40 mg capsule Take 1 capsule by mouth at bedtime as needed. - hydrOXYzine pamoate (VISTARIL) 25 mg capsule Take 1 capsule by mouth daily at bedtime. - lisinopril (ZESTRIL) 10 mg tablet Take 1 tablet by mouth once daily. - simvastatin (ZOCOR) 20 mg tablet Take 1 tablet by mouth daily at bedtime. - Benzonatate 200 mg capsule Take 200 mg by mouth three times a day as needed. - Blood Pressure Monitor Home blood pressure monitor - cyclobenzaprine (FLEXERIL) 10 mg tablet Take 1 tablet by mouth twice daily as needed for muscle spasm. - albuterol HFA (VENTOLIN HFA) 90 mcg/actuation inhaler Inhale 2 Puffs as instructed four times daily as needed. - ferrous sulfate (SLOW FE) 140 mg (45 mg iron) TbER Take 1 tablet by mouth twice daily with meals. - mirtazapine (REMERON) [address] Talamantes. - multivitamin tablet Take 1 tablet by mouth once daily. - ARIPiprazole (ABILIFY) 5 mg tablet 5 mg once daily. - albuterol (PROVENTIL) 2.5 mg /3 mL (0.083 %) nebulizer solution Use 3 mL via nebulizer one time only for 1 dose. Use over 5-15minutes. - OXYGEN, HOME THERAPY, Inhale as instructed as directed. Patient is on 2-3 liters - COMPOUNDED PRESCRIPTION Pulse Oximetry - COMPOUNDED PRESCRIPTION nebulizer supplies (tubing) Problem List As Of Date 12/23/2024 Noted Resolved TOBACCO USE DISORDER [F17.200] 06/29/2008 Anxiety state [F41.1] 10/19/2008 Hyperlipidemia [E78.5] 01/31/2009 Essential Hypertension, Benign [I10] 09/04/2009 Gastroesophageal reflux disease [K21.9] 12/26/2009 01/10/2021 Acute gastritis without mention of hemorrhage [*10/03/2010 01/03/2015 Pancreatitis chronic 05/26/2011 08/27/2017 Chronic obstructive pulmonary disease (HCC) [J4*05/25/2012 Lumbar disc disease with radiculopathy [M51.16] 06/18/2012 Postmenopausal bleeding [N95.0] 12/07/2012 Ovarian cyst, right [N83.201] 12/27/2012 Alcoholic hepatitis without ascites [K70.10] 11/16/2013 Urine, incontinence, stress female [N39.3] 11/24/2014 HPV test positive [AHT7433] 11/24/2014 Alcohol dependence in remission (HCC) [F10.21] 07/10/2015 11/02/2018 Pulmonary emphysema (HCC) [J43.9] 11/27/2015 Irritable bowel syndrome with both constipation*08/27/2017 Alcohol use disorder, moderate, dependence (HCC*08/27/2017 DDD (degenerative disc disease), cervical [M50.*09/03/2018 Severe protein-calorie malnutrition (HCC) [E43] 01/07/2019 12/26/2022 Chronic recurrent pancreatitis (HCC) [K86.1] 01/07/2019 Reactive depression [F32.9] 04/28/2019 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 chronic pancreatitis (HCC) [K86*07/26/2019 Moderate episode of recurrent major depressive *09/01/2020 History of colonic polyps [Z86.0100] 01/10/2021 01/10/2021 Abdominal bloating [R14.0] 01/10/2021 01/10/2021 Encounter Status:Closed by RAISA JIMENEZ on 12/23/24 Normal [facility] Pulmonary Visit Reporton Pulmonary Visit Report Normal [facility] NURSING PROGon 12-20-2024 NURSING PROG HNO ID: [id number] Author: CARROLL LEBLANC RN Service: ? Author Type: Registered Nurse Type: Nursing Progress Note Filed: 12/20/2024 14:56 Note Text: Attempted to reach the patient at the contact number that they provided [phone] (home) . Unable to speak with patient so without identifying the patient the following information was left on their voice mail: Date of procedure, location and report time Prep instructions A message was left informing the patient/patient patient support representative they must have a responsible adult accompany them to their procedure; and remain in the endoscopy area until they are discharged. Failure to have a responsible adult accompany the patient to their procedure appointment prevents the use of sedation or anesthesia for their procedure; and can result in cancellation of the procedure NPO instructions were reviewed. Instructions to contact their primary care provider regarding their medications and which medications to stop in preparation for their procedure Number to call with questions or concerns [phone] Number to call to cancel their procedure [phone] Carroll Leblanc RN Normal [facility] CBC W Auto Differential pane l (Bld)on 12-19-2024 Basophils (Bld) [#/Vol] 0.23 10*3/uL High <0.11 [facility] Comment on above: Order Comment: Speci men Type: BLOOD SPECIMENOrdering Facility: [facility] Address: [address] [place] [address] Performed By: #### 5 7021-8 ####[facility] LABCLIA [id number] [place] [address] [place] Basophils/100 WBC (Bld) 0.9 % Normal C [facility] Comment on above: Order Comment: Speci men Type: BLOOD SPECIMENOrdering Facility: [facility] Address: [address] [place] [address] Performed By: #### 5 7021-8 ####[facility] LABCLIA [id number] [place] [id number] [place] Dacrocytes LM Ql (Bld) Few Normal Cl [facility] Comment on above: Order Comment: Speci men Type: BLOOD SPECIMENOrdering Facility: [facility] Address: [address] [place] [address] Performed By: #### 5 7021-8 ####[facility] LABIA [id number] [place] [address] [place] Differential cell count method Nom (Bld) Manual Normal [facility] Comment on above: Order Comment: Speci men Type: BLOOD SPECIMENOrdering Facility: [facility] Address: [address] [place] [address] Performed By: #### 5 7021-8 ####[facility] LABCLIA [id number] [place] [address] [place] Eosinophils (Bld) [#/Vol] 0.00 10*3/uL Normal <0.46 [facility] Comment on above: Order Comment: Speci men Type: BLOOD SPECIMENOrdering Facility: [facility] Address: [address] [place] [address] Performed By: #### 5 7021-8 ####[facility] LABCLIA [id number] [address] [place] Eosinophils/100 WBC (Bld) 0.0 % Normal [facility] Comment on above: Order Comment: Speci men Type: BLOOD SPECIMENOrdering Facility: [facility] Address: [address] [place] [address] Performed By: #### 5 7021-8 ####[facility] LABCLIA [id number] [place] [address] [place] Erythrocyte distribution width (RBC) [Ratio] 14.7 % Normal 11.5-15.0 [facility] Comment on above: Order Comment: Speci men Type: BLOOD SPECIMENOrdering Facility: [facility] Address: [address] [place] [address] Performed By: #### 5 7021-8 ####[facility] LABCLIA [id number] [address] [place] Hematocrit (Bld) [Volume fraction] 38.4 % Normal 36.0-46.0 [facility] Comment on above: Order Comment: Speci men Type: BLOOD SPECIMENOrdering Facility: [facility] Address: [address] [place] [address] Performed By: #### 5 7021-8 ####[facility] LABCLIA [id number] [address] [address] [place] Hemoglobin (Bld) [Mass/Vol] 11.6 g/dL Normal 11.5-15.5 [facility] Comment on above: Order Comment: Speci men Type: BLOOD SPECIMENOrdering Facility: [facility] Address: [address] [place] [address] Performed By: #### 5 7021-8 ####[facility] LABCLIA [id number] [place] [address] [place] Lymphocytes (Bld) [#/Vol] 3.58 10*3/uL Normal 1.00-4.00 [facility] Comment on above: Order Comment: Speci men Type: BLOOD SPECIMENOrdering Facility: [facility] Address: [address] [place] [address] Performed By: #### 5 7021-8 ####[facility] LABIA [id number] [place] [address] [place] Lymphocytes/100 WBC (Bld) 14.0 % Normal [facility] Comment on above: Order Comment: Speci men Type: BLOOD SPECIMENOrdering Facility: [facility] Address: [address] [place] [address] Performed By: #### 5 7021-8 ####[facility] LABIA [id number] [place] [address] [place] MCH (RBC) [Entitic mass] 26.7 pg Normal 26.0-34.0 [facility] Comment on above: Order Comment: Speci men Type: BLOOD SPECIMENOrdering Facility: [facility] Address: [address] [place] [address] Performed By: #### 5 7021-8 ####[facility] LABCLIA [id number] [address] [address] [place] MCHC (RBC) [Mass/Vol] 30.2 g/dL Low 30.5-36.0 [facility] Comment on above: Order Comment: Speci men Type: BLOOD SPECIMENOrdering Facility: [facility] Address: [address] [place] [address] Performed By: #### 5 7021-8 ####[facility] LABCLIA [id number] [place] [address] [place] MCV (RBC) [Entitic vol] 88.5 fL Normal 80.0-100.0 C [facility] Comment on above: Order Comment: Speci men Type: BLOOD SPECIMENOrdering Facility: [facility] Address: [address] [place] [address] Performed By: #### 5 7021-8 ####[facility] LABCLIA [id number] [place] [address] [place] Metamyelocytes/100 WBC (Bld) 0.9 % Normal [facility] Comment on above: Order Comment: Speci men Type: BLOOD SPECIMENOrdering Facility: [facility] Address: [address] [place] [address] Performed By: #### 5 7021-8 ####[facility] LABCLIA [id number] [place] [address] [place] Monocytes (Bld) [#/Vol] 0.90 10*3/uL High <0.87 [facility] Comment on above: Order Comment: Speci men Type: BLOOD SPECIMENOrdering Facility: [facility] Address: [address] [place] [address] Performed By: #### 5 7021-8 ####[facility] LABCLIA [id number] [address] [place] Monocytes/100 WBC (Bld) 3.5 % Normal [facility] Comment on above: Order Comment: Speci men Type: BLOOD SPECIMENOrdering Facility: [facility] Address: [address] [place] [address] Performed By: #### 5 7021-8 ####[facility] LABCLIA [id number] [address] [place] [address] [place] Neutrophils (Bld) [#/Vol] 20.64 10*3/uL High 1.45-7.50 [facility] Comment on above: Order Comment: Speci men Type: BLOOD SPECIMENOrdering Facility: [facility] Address: [address] [place] [address] Performed By: #### 5 7021-8 ####[facility] LABCLIA [id number] [address], [place] [address] [place] Neutrophils/100 WBC (Bld) 80.7 % Normal [facility] Comment on above: Order Comment: Speci men Type: BLOOD SPECIMENOrdering Facility: [facility] Address: [address] [place] [address] Performed By: #### 5 7021-8 ####[facility] LABCLIA [id number] [address], [place] [address] [place] Nucleated RBC (Bld) [#/Vol] 10*3/uL Normal <0.01 [facility] Comment on above: Order Comment: Speci men Type: BLOOD SPECIMENOrdering Facility: [facility] Address: [address] [place] [address] Performed By: #### 5 7021-8 ####[facility] LABIA [id number] [facility] [address], [place] [address] [place] Nucleated RBC/100 WBC (Bld) [Ratio] 0.0 /100 WBC Normal [facility] Comment on above: Order Comment: Speci men Type: BLOOD SPECIMENOrdering Facility: [facility] Address: [address] [place] [address] Performed By: #### 5 7021-8 ####[facility] LABCLIA [id number] [address], [facility] [place] Ovalocytes LM Ql (Bld) Few Normal Cl [facility] Comment on above: Order Comment: Speci men Type: BLOOD SPECIMENOrdering Facility: [facility] Address: [address] [place] [address] Performed By: #### 5 7021-8 ####[facility] LABCLIA [id number] [address] [place] [address] [place] Platelet mean volume (Bld) [Entitic vol] 10.9 fL Normal 9.0-12.7 [facility] Comment on above: Order Comment: Speci men Type: BLOOD SPECIMENOrdering Facility: [facility] Address: [address] [place] [address] Performed By: #### 5 7021-8 ####[facility] LABIA [id number] [address], [place] [address] [place] Platelets (Bld) [#/Vol] 331 10*3/uL Normal 150-400 [facility] Comment on above: Order Comment: Speci men Type: BLOOD SPECIMENOrdering Facility: [facility] Address: [address] [place] [address] Performed By: #### 5 7021-8 ####[facility] LABIA [id number] [address], [place] [address] [place] Platelets Estimate (Bld) [#/Vol] Adequate Normal [facility] Comment on above: Order Comment: Speci men Type: BLOOD SPECIMENOrdering Facility: [facility] Address: [address] [place] [address] Performed By: #### 5 7021-8 ####[facility] LABCLIA [id number] [address] [address] [place] Polychromasia LM Ql (Bld) Slight Normal [facility] Comment on above: Order Comment: Speci men Type: BLOOD SPECIMENOrdering Facility: [facility] Address: [address] [place] [address] Performed By: #### 5 7021-8 ####[facility] LABCLIA [id number] [address] [address] [place] RBC (Bld) [#/Vol] 4.34 10*6/uL Normal 3.90-5.20 [facility] Comment on above: Order Comment: Speci men Type: BLOOD SPECIMENOrdering Facility: [facility] Address: [address] [place] [address] Performed By: #### 5 7021-8 ####[facility] LABIA [id number] [place] [address] [place] RED CELL MORPH Reviewed: see result s of individual morphologies Normal [facility] Comment on above: Order Comment: Speci men Type: BLOOD SPECIMENOrdering Facility: [facility] Address: [address] [place] [address] Performed By: #### 5 7021-8 ####[facility] LABIA [id number] [place] [address] [place] Target cells LM Ql (Bld) Few Normal [facility] Comment on above: Order Comment: Speci men Type: BLOOD SPECIMENOrdering Facility: [facility] Address: [address] [place] [address] Performed By: #### 5 7021-8 ####[facility] LABIA [id number] [place] [address] [place] WBC (Bld) [#/Vol] 25.58 10*3/uL High 3.70-11.00 [facility] Comment on above: Order Comment: Speci men Type: BLOOD SPECIMENOrdering Facility: [facility] Address: [address] [place] [address] Performed By: #### 5 7021-8 ####[facility] LABIA [id number] [address], [facility] [place] WBC Left Shift Ql (Bld) Present Normal [facility] Comment on above: Order Comment: Speci men Type: BLOOD SPECIMENOrdering Facility: [facility] Address: [address] [place] [address] Performed By: #### 5 7021-8 ####[facility] LABCLKRISTI [id number] [place] [address] [place] CNOVon 12-19-2024 CNOV Office Visit (FAMPWS ) GRACIE BANUELOS ([id number]) 1965 F Date Time Provider Department 12/19/24 2:40 PM TARA YOUNGBLOOD FAMPWS During your visit today, we recorded the following information about you: Pulse Respiration Blood pressure Weight 103/minute 16/minute 118/62 62.1 kg Tara Youngblood, COSMETIC CONSULTANT.DAYTIME CAREGIVER 12/19/2024 3:33 PM Signed Chief Complaint Patient presents with: hospital f/up HPI Gracie Banuelos is a 59 year old female who presents here today for Above Complaints. Gracie is an established patient of Dr. Brittni MD. Concerns today.. Hospital follow-up--- [facility] admission from 12/04-12/12 d/t acute hypoxic respiratory failure r/t COPD exacerbation. Hospital course: To ED d/t SOB and wheezing. On 2-3L NC at baseline. Covid, flu, rsv negative. CTA chest was negative for PE, did show 3 mm R nodule. ECHO with EF of 70%. Given IV solumedrol and breathing treatments. During stay, hospital course was complicated by dysphagia so GI consulted and had EGD which showed blood in back of mouth and benign esophageal stenosis which was dilated. Walking pulse ox showed need for 4L NC with ambulation. Discharged home. In office today... Pt reports aspirating on eggs while in the hospital which caused the dysphagia and prompted EGD. Pt reports being very careful with eating and swallowing now. Does not want to catch pneumonia per pt. She does not think she has aspirated since. No wheezing or worsening SOB. No fever/chills. Still using 4L NC all the time. Was discharged on 5L and weaned herself down to 4L with pulse ox remaining above 93%. Feels good on the 4L. Was able to ambulate in office on 4L and pulse ox remains above 92%. Still doing breathing treatments every 4 hours. Feeling good, no wheezing. Trying to quit smoking. Smoked 4 cigarettes today total and 3 total yesterday. Used to smoke > 1 pack per day. Just ordered nicotine patches to help her quit. 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 Chronic recurrent pancreatitis -- had recent surgery for pain jersey that did not work. Has pain management appointment on Thursday. Asking for pain medication to get her through to this appointment in 2 days. Was given tramadol in the hospital which does help. Taken off of Creon d/t not helping and only making her more bloated. Has appointment with GI specialist set up. Past medical history, appointments, medications, allergies reviewed. Previous Medical History PAST MEDICAL HISTORY Diagnosis Date Acute exacerbation of chronic obstructive airways disease (HCC) Alcohol dependence in remission ([facility]) 07/10/2015 Alcohol use disorder 08/27/2017 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 pancreatitis Alcoholic hepatitis 05/18/2012 Alcoholic liver disease ([facility]) 11/16/2013 Anemia Anxiety with depression Arthritis Asthma Chronic hypoxemic respiratory failure ([facility]) COPD (chronic obstructive pulmonary disease) ([facility]) 05/25/2012 DDD (degenerative disc disease), cervical 09/03/2018 Diaphragmatic hernia without mention of obstruction or gangrene Diarrhea Diverticulosis GERD (gastroesophageal reflux disease) Hemorrhoids HLD (hyperlipidemia) HTN (hypertension) Human papillomavirus in conditions classified elsewhere and of unspecified site Irritable bowel syndrome with both constipation and diarrhea 08/27/2017 Lumbar disc disease with radiculopathy 06/18/2012 Other and unspecified alcohol dependence, unspecified drinking behavior Ovarian cyst, right 12/27/2012 Pancreatitis chronic 05/26/2011 Pneumonia of both lungs due to infectious organism 2017 Severe protein-calorie malnutrition (HCC) 01/07/2019 Stage 3 severe COPD by GOLD classification ([facility]) 2018 Tobacco use greater than 30 years Unspecified hemorrhoids without mention of complication Urine, incontinence, stress female 11/24/2014 Previous Surgical History PAST SURGICAL HISTORY Procedure Laterality Date APPENDECTOMY at age 14 COLONOSCOPY 04/15/[address], [address] Paul Perez. COLONOSCOPY 01/23/2015 2-Tubular adenomas. Dr. Víctor Lopez. COLONOSCOPY 07/29/2017 normal COLONOSCOPY - DIAGNOSTIC 01/10/2021 10 yr interval EGD 10/03/[address] Paul Perez. EGD 07/29/2017 mild gastritis, otherwise normal EGD 01/10/2021 EGD EUS 12/05/2019 mild gastritis, chronic pancreatitis with PD stone L'SCOPE CHOLECYSTECTOMY 06/14/2021 TUBAL LIGATION HX 1987 Family History FAMILY HISTORY Problem Relation Age of Onset Diabetes Mother Hypertension Mother Rheumatologic disease Mother other (lung cancer) Mother Lung Cancer Mother Diabetes Sister Cervical Cancer Sister X 2 Hypertension Brother Lung Cancer Brother Patient Allergies ALLERGIES Allergen Reactions Bactrim [Sulfametho* Hives Hydrocodone Itching Penicillins Other: See Comments hives Valium [Diazepam] Other: See (more content not included)... Normal [facility] 12-19-2024 CNPN Telephone (INTMWS) GRACIE BANUELOS ([id number]) 1965 F Date Time Provider Department 12/19/24 ANNMARIE ELKINS INTWS During your visit today, we recorded the following information about you: Marge Perkins RN 12/19/2024 6:52 PM Signed Pt called in for x-ray results. I let Pt know they are not back in yet and provider would call her when they are. Soila Easton APRN.DAYTIME CAREGIVER 12/22/2024 8:08 AM Signed I am assuming this is regards to the chest xray as ordered by tara Youngblood. If so please see her result note on the xray. If not, please specify which xray I need to address. Thank you Soila Easton APRN.DAYTIME CAREGIVER Eileen Chavez MA 12/22/2024 9:01 AM Signed Message sent. Allergies As of Date: 12/19/2024 Noted Allergy Reaction BACTRIM (SULFAMETHOXAZOLE-TRIME TH*11/28/2022 4 - Hives HYDROCODONE 08/02/2020 9 - Itching PENICILLINS 07/07/2006 14 - Other: See Comments Comments: hives VALIUM (DIAZEPAM) 11/02/2013 14 - Other: See Comments Comments: cross reaction with alcohol addiction Date Reviewed: 12/19/2024 Reviewed by: Tara Youngblood APRN.DAYTIME CAREGIVER - Fully Assessed Reason for Visit: Results [95] Prescriptions as of 12/22/2024 - traMADol (ULTRAM) 50 mg tablet Take 1 tablet by mouth every 6 hours as needed for pain for up to 3 days. - pantoprazole DR (PROTONIX) 40 mg tablet Take 1 tablet by mouth once daily. - metoprolol tartrate, short acting, (LOPRESSOR) 25 mg tablet Take 1 tablet by mouth two times a day. - amLODIPine (NORVASC) 5 mg tablet Take 1 tablet by mouth once daily. - hydrOXYzine HCl (ATARAX) 25 mg tablet Take 1 tablet by mouth three times a day as needed for itching/rash. - MUCINEX D MAXIMUM STRENGTH 120-1,200 mg tab ER 12 hr Take 1 tablet by mouth as needed. - Cholecalciferol, Vitamin D3, 50 mcg (2,000 unit) cap Take 1 capsule by mouth once daily. - predniSONE (DELTASONE) 20 mg tablet Take 2 tablets by mouth once daily. - ondansetron orally disintegrating (ZOFRAN ODT) 4 mg disintegrating tablet Take 1 tablet by mouth every 6 hours as needed for nausea/vomiting. - ziprasidone (GEODON) 40 mg capsule Take 1 capsule by mouth at bedtime as needed. - hydrOXYzine pamoate (VISTARIL) 25 mg capsule Take 1 capsule by mouth daily at bedtime. - lisinopril (ZESTRIL) 10 mg tablet Take 1 tablet by mouth once daily. - simvastatin (ZOCOR) 20 mg tablet Take 1 tablet by mouth daily at bedtime. - Benzonatate 200 mg capsule Take 200 mg by mouth three times a day as needed. - Blood Pressure Monitor Home blood pressure monitor - cyclobenzaprine (FLEXERIL) 10 mg tablet Take 1 tablet by mouth twice daily as needed for muscle spasm. - albuterol HFA (VENTOLIN HFA) 90 mcg/actuation inhaler Inhale 2 Puffs as instructed four times daily as needed. - ferrous sulfate (SLOW FE) 140 mg (45 mg iron) TbER Take 1 tablet by mouth twice daily with meals. - mirtazapine (REMERON) [address] Dr[address] Talamantes. - multivitamin tablet Take 1 tablet by mouth once daily. - ARIPiprazole (ABILIFY) 5 mg tablet 5 mg once daily. - albuterol (PROVENTIL) 2.5 mg /3 mL (0.083 %) nebulizer solution Use 3 mL via nebulizer one time only for 1 dose. Use over 5-15minutes. - OXYGEN, HOME THERAPY, Inhale as instructed as directed. Patient is on 2-3 liters - COMPOUNDED PRESCRIPTION Pulse Oximetry - COMPOUNDED PRESCRIPTION nebulizer supplies (tubing) Problem List As Of Date 12/19/2024 Noted Resolved TOBACCO USE DISORDER [F17.200] 06/29/2008 Anxiety state [F41.1] 10/19/2008 Hyperlipidemia [E78.5] 01/31/2009 Essential Hypertension, Benign [I10] 09/04/2009 Gastroesophageal reflux disease [K21.9] 12/26/2009 01/10/2021 Acute gastritis without mention of hemorrhage [*10/03/2010 01/03/2015 Pancreatitis chronic 05/26/2011 08/27/2017 Chronic obstructive pulmonary disease (HCC) [J4*05/25/2012 Lumbar disc disease with radiculopathy [M51.16] 06/18/2012 Postmenopausal bleeding [N95.0] 12/07/2012 Ovarian cyst, right [N83.201] 12/27/2012 Alcoholic hepatitis without ascites [K70.10] 11/16/2013 Urine, incontinence, stress female [N39.3] 11/24/2014 HPV test positive [MCN7979] 11/24/2014 Alcohol dependence in remission (HCC) [F10.21] 07/10/2015 11/02/2018 Pulmonary emphysema (HCC) [J43.9] 11/27/2015 Irritable bowel syndrome with both constipation*08/27/2017 Alcohol use disorder, moderate, dependence (HCC*08/27/2017 DDD (degenerative disc disease), cervical [M50.*09/03/2018 Severe protein-calorie malnutrition (HCC) [E43] 01/07/2019 12/26/2022 Chronic recurrent pancreatitis (HCC) [K86.1] 01/07/2019 Reactive depression [F32.9] 04/28/2019 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 Normal [facility] Comprehensive metabolic 2000 panelon 12-19-2024 Albumin [Mass/Vol] 3.6 g/dL Low 3.9-4.[address] [facility] Comment on above: Order Comment: Speci men Type: BLOOD SPECIMENOrdering Facility: [facility] Address: [address] [place] [address] Performed By: #### 2 4323-8, 0-3 ####[facility] LABIA [id number] [place] [address] [place] ALP [Catalytic activity/Vol] 97 U/L Normal 34-123 [facility] Comment on above: Order Comment: Speci men Type: BLOOD SPECIMENOrdering Facility: [facility] Address: [address] [place] [address] Performed By: #### 2 4323-8, 3040-3 ####[facility] LABIA [id number] [place] [id number] [place] ALT [Catalytic activity/Vol] 16 U/L Normal 7-38 [facility] Comment on above: Order Comment: Speci men Type: BLOOD SPECIMENOrdering Facility: [facility] Address: [address] [place] [address] Performed By: #### 2 4323-8, 3040-3 ####[facility] LABIA [id number] [place] [id number] [place] Anion gap [Moles/Vol] 13 mmol/L Normal 8-15 [facility] Comment on above: Order Comment: Speci men Type: BLOOD SPECIMENOrdering Facility: [facility] Address: [address] [place] [address] Performed By: #### 2 4323-8, 3039-3 ####[facility] LABCLIA [id number] [facility] [place] [id number] [place] AST [Catalytic activity/Vol] 14 U/L Normal 13-35 [facility] Comment on above: Order Comment: Speci men Type: BLOOD SPECIMENOrdering Facility: [facility] Address: [address] [place] [address] Performed By: #### 2 4323-8, 3 ####[facility] LABCLIA [id number] [place] [id number] [place] Bilirubin [Mass/Vol] 0.3 mg/dL Normal 0.2-1.3 [facility] Comment on above: Order Comment: Speci men Type: BLOOD SPECIMENOrdering Facility: [facility] Address: [address] [place] [address] Performed By: #### 2 4323-8, 3 ####[facility] LABCLIA [id number] [place] [id number] [place] Calcium [Mass/Vol] 8.9 mg/dL Normal 8.5-10.[address] [facility] Comment on above: Order Comment: Speci men Type: BLOOD SPECIMENOrdering Facility: [facility] Address: [address] [place], [place] [address] Performed By: #### 2 4323-8, 3039-3 ####[facility] LABCLIA [id number] [facility] [place] [id number] [place] Chloride [Moles/Vol] 97 mmol/L Low 98-107 [facility] Comment on above: Order Comment: Speci men Type: BLOOD SPECIMENOrdering Facility: [facility] Address: [address] [place] [address] Performed By: #### 2 4323-8, 0-3 ####[facility] LABCLIA [id number] [place] [id number] [place] CO2 [Moles/Vol] 30 mmol/L Normal 22-30 [facility] Comment on above: Order Comment: Speci men Type: BLOOD SPECIMENOrdering Facility: [facility] Address: [address] [place] [address] Performed By: #### 2 4323-8, 3039-3 ####[facility] LABIA [id number] [place] [address] [place] Creatinine [Mass/Vol] 0.81 mg/dL Normal 0.58-0.96 [facility] Comment on above: Order Comment: Speci men Type: BLOOD SPECIMENOrdering Facility: [facility] Address: [address] [place] [address] Performed By: #### 2 4323-8, 3039-3 ####[facility] LABIA [id number] [place] [address] [place] Creatinine and Glomerular filtration rate.predicted panel (S/P/Bld) 83 mL/min/1.73m??? Normal >=60 [facility] Comment on above: Order Comment: Speci men Type: BLOOD SPECIMENOrdering Facility: [facility] Address: [address] [place] [address] Result Comment: Pavan mated Glomerular Filtration Rate (eGFR) is calculated using the 2020 CKD-EPI creatinine equation. This equation utilizes serum creatinine, sex, and age as parameters. The creatinine assay has traceable calibration to isotope dilution-mass spectrometry. Refer to KDIGO guidelines for clinical interpretation. In patients with unstable renal function, e.g. those with acute kidney injury, the eGFR may not accurately reflect actual GFR. Performed By: #### 2 4323-8, 3039-3 ####[facility] LABCLIA [id number] [place] [id number] [place] Glucose [Mass/Vol] 86 mg/dL Normal 74-[address] [facility] Comment on above: Order Comment: Speci men Type: BLOOD SPECIMENOrdering Facility: [facility] Address: [address] [place] [address] Result Comment: The [place] Diabetes Association (ADA) provides guidance for cutoff values for fasting glucose and random glucose. The ADA defines fasting as no caloric intake for at least 8 hours. Fasting plasma glucose results between 100 to 125 mg/dL indicate increased risk for diabetes (prediabetes). Fasting plasma glucose results greater than or equal to 126 mg/dL meet the criteria for diagnosis of diabetes. In the absence of unequivocal hyperglycemia, results should be confirmed by repeat testing. In a patient with classic symptoms of hyperglycemia or hyperglycemic crisis, random plasma glucose results greater than or equal to 200 mg/dL meet the criteria for diagnosis of diabetes. Reference: Standards of Medical Care in Diabetes 2016, [place] Diabetes Association. Diabetes Care. 2016.39(Suppl 1). Performed By: #### 2 4323-8, 3039-3 ####[facility] LABCLIA [id number] [place] [address] [place] Potassium [Moles/Vol] 4.0 mmol/L Normal 3.7-5.1 [facility] Comment on above: Order Comment: Speci men Type: BLOOD SPECIMENOrdering Facility: [facility] Address: [address] [place] [address] Performed By: #### 2 4323-8, 3039-3 ####[facility] LABCLIA [id number] [place] [address] [place] Protein [Mass/Vol] 6.1 g/dL Low 6.3-8.[address] [facility] Comment on above: Order Comment: Speci men Type: BLOOD SPECIMENOrdering Facility: [facility] Address: [address] [place] [address] Performed By: #### 2 4323-8, 3039-3 ####[facility] LABCLIA [id number] [address] [address] [place] Sodium [Moles/Vol] 140 mmol/L Normal 136-[address] [facility] Comment on above: Order Comment: Speci men Type: BLOOD SPECIMENOrdering Facility: [facility] Address: [address] [place] [address] Performed By: #### 2 4323-8, 3040-3 ####[facility] LABCLIA [id number] [place] [id number] [place] Urea nitrogen [Mass/Vol] 8 mg/dL Normal 7-21 [facility] Comment on above: Order Comment: Speci men Type: BLOOD SPECIMENOrdering Facility: [facility] Address: [address] [place] [address] Performed By: #### 2 4323-8, 3040-3 ####[facility] LABCLIA [id number] [place] [id number] [place] Lipase SerPl-cCncon 12-20-19 25 Lipase [Catalytic activity/Vol] 32 U/L Normal 16-61 [facility] Comment on above: Order Comment: Speci men Type: BLOOD SPECIMENOrdering Facility: [facility] Address: [address] [place] [address] Performed By: #### 2 4323-8, 3040-3 ####[facility] LABCLIA [id number] [place] [id number] [place] XR CHEST 2V FRONTAL/LATon XR CHEST 2V FRONTAL/LAT * * *Final Repor t* * * DATE OF EXAM: Dec 19 2024 4:01PM WOX [id number] - XR CHEST 2V FRONTAL/LAT / PROCEDURE REASON: multiple diagnoses * * * * Physician Interpretation * * * * EXAMINATION: CHEST RADIOGRAPH (2 VIEW FRONTAL and LATERAL) CLINICAL HISTORY: Chronic recurrent pancreatitis (HCC) Chronic obstructive pulmonary disease, unspecified COPD type (HCC) MQ: [id number]_6 EXAM DATE/TIME: 12/19/2024 4:01 PM COMPARISON: 11/07/2024 RESULT: Lines, tubes, and devices: None. Lungs and pleura: No consolidation. No lung mass. No pleural effusion. No pneumothorax. Minimal stable atelectasis or fibrosis at both lung bases Cardiomediastinal silhouette: Normal cardiomediastinal silhouette. Bones and soft tissues: Unremarkable. IMPRESSION: No acute radiographic abnormality. Advanced Practice Nurse Psychotherapist: PSCB Transcribe Date/Time: Dec 21 2024 4:06P Dictated by : JEAN-CLAUDE MANRIQUEZ MD This examination was interpreted and the report reviewed and electronically signed by: JEAN-CLAUDE MANRIQUEZ MD on Dec 21 2024 4:07PM EST [id number] Normal [facility] Basic Metabolic Profile (BMP )on 12-17-2024 BUN Normal 4-19 [facility] Comment on above: Result Comment: Canc elled via OM: Order cancelled - Patient discharged Performed By: #### L 500.2500, L100.0100 ####[facility] [address] [place], [address] BUN/CRE Normal 10-20 [facility] Comment on above: Result Comment: Canc elled via OM: Order cancelled - Patient discharged Performed By: #### L 500.2500, L100.0100 ####[facility] [address] [place], [address] Calcium Normal 7.6-11.0 [facility] Comment on above: Result Comment: Canc elled via OM: Order cancelled - Patient discharged Performed By: #### L 500.2500, L100.0100 ####[facility] [address] [place], [address] CL Normal 98-108 [facility] Comment on above: Result Comment: Canc elled via OM: Order cancelled - Patient discharged Performed By: #### L 500.2500, L100.0100 ####[facility] [address] [place], [address] CO2 Normal 21.0-32.0 [facility] Comment on above: Result Comment: Canc elled via OM: Order cancelled - Patient discharged Performed By: #### L 500.2500, L100.0100 ####[facility] [address] [place], [address] CREAT,SERUM Normal 0.70-1.20 [facility] Comment on above: Result Comment: Canc elled via OM: Order cancelled - Patient discharged Performed By: #### L 500.2500, L100.0100 ####[facility] [address] [place], [address] eGFR Normal >60 [facility] Comment on above: Result Comment: Canc elled via OM: Order cancelled - Patient discharged Performed By: #### L 500.2500, L100.0100 ####[facility] [address] [place], [address] GAP Normal 5-15 [facility] Comment on above: Result Comment: Canc elled via OM: Order cancelled - Patient discharged Performed By: #### L 500.2500, L100.0100 ####[facility] [address] [place], [address] GLU Normal 70-99 [facility] Comment on above: Result Comment: Canc elled via OM: Order cancelled - Patient discharged Performed By: #### L 500.2500, L100.0100 ####[facility] [address] [place], [address] Potassium Normal 3.3-5.1 [facility] Comment on above: Result Comment: Canc elled via OM: Order cancelled - Patient discharged Performed By: #### L 500.2500, L100.0100 ####[facility] [address] [place], [address] Basic Metabolic Profile (BMP) Normal 133-145 [facility] Comment on above: Result Comment: Canc elled via OM: Order cancelled - Patient discharged Performed By: #### L 500.2500, L100.0100 ####[facility] [address] [place], [address] CBC W/Diff, Automatedon - Absolute Neut Normal 2.0-7.7 [facility] Comment on above: Result Comment: Canc elled via OM: Order cancelled - Patient discharged Performed By: #### L 500.2500, L100.0100 ####[facility] [address] [place], [address] HCT Normal 37-47 [facility] Comment on above: Result Comment: Canc elled via OM: Order cancelled - Patient discharged Performed By: #### L 500.2500, L100.0100 ####[facility] [address] [place], [address] HGB Normal 12.0-15.0 [facility] Comment on above: Result Comment: Canc elled via OM: Order cancelled - Patient discharged Performed By: #### L 500.2500, L100.0100 ####[facility] [address] [place], [address] MCH Normal 27.0-32.0 [facility] Comment on above: Result Comment: Canc elled via OM: Order cancelled - Patient discharged Performed By: #### L 500.2500, L100.0100 ####[facility] [address] [place], [address] MCHC Normal 32-36 [facility] Comment on above: Result Comment: Canc elled via OM: Order cancelled - Patient discharged Performed By: #### L 500.2500, L100.0100 ####[facility] [address] [place], [address] MCV Normal 81-99 [facility] Comment on above: Result Comment: Canc elled via OM: Order cancelled - Patient discharged Performed By: #### L 500.2500, L100.0100 ####[facility] [address] [place], [address] NEUT% Normal 47-70 [facility] Comment on above: Result Comment: Canc elled via OM: Order cancelled - Patient discharged Performed By: #### L 500.2500, L100.0100 ####[facility] [address] [place], [address] PLT Normal 150-450 [facility] Comment on above: Result Comment: Canc elled via OM: Order cancelled - Patient discharged Performed By: #### L 500.2500, L100.0100 ####[facility] [address] [place], [address] RBC Normal 4.2-5.4 [facility] Comment on above: Result Comment: Canc elled via OM: Order cancelled - Patient discharged Performed By: #### L 500.2500, L100.0100 ####[facility] [address] [place], [address] RDW CV Normal 11.6-14.6 [facility] Comment on above: Result Comment: Canc elled via OM: Order cancelled - Patient discharged Performed By: #### L 500.2500, L100.0100 ####[facility] [address] [place], [address] RDW SD Normal 35.1-43.9 [facility] Comment on above: Result Comment: Canc elled via OM: Order cancelled - Patient discharged Performed By: #### L 500.2500, L100.0100 ####[facility] [address] [place], [address] WBC Normal 4.4-11.0 [facility] Comment on above: Result Comment: Canc elled via OM: Order cancelled - Patient discharged Performed By: #### L 500.2500, L100.0100 ####[facility] [address] [place], [address] Basic Metabolic Profile (BMP )on 12-16-2024 BUN Normal 4-19 [facility] Comment on above: Result Comment: Canc elled via OM: Order cancelled - Patient discharged Performed By: #### L 500.2500, L100.0100 ####[facility] [address] [place], [address] BUN/CRE Normal 10-20 [facility] Comment on above: Result Comment: Canc elled via OM: Order cancelled - Patient discharged Performed By: #### L 500.2500, L100.0100 ####[facility] [address] [place], [address] Calcium Normal 7.6-11.0 [facility] Comment on above: Result Comment: Canc elled via OM: Order cancelled - Patient discharged Performed By: #### L 500.2500, L100.0100 ####[facility] [address] [place], [address] CL Normal 98-108 [facility] Comment on above: Result Comment: Canc elled via OM: Order cancelled - Patient discharged Performed By: #### L 500.2500, L100.0100 ####[facility] [address] [place], [address] CO2 Normal 21.0-32.0 [facility] Comment on above: Result Comment: Canc elled via OM: Order cancelled - Patient discharged Performed By: #### L 500.2500, L100.0100 ####[facility] [address] [place], [address] CREAT,SERUM Normal 0.70-1.20 [facility] Comment on above: Result Comment: Canc elled via OM: Order cancelled - Patient discharged Performed By: #### L 500.2500, L100.0100 ####[facility] [address] [place], [address] eGFR Normal >60 [facility] Comment on above: Result Comment: Canc elled via OM: Order cancelled - Patient discharged Performed By: #### L 500.2500, L100.0100 ####[facility] [address] [place], [address] GAP Normal 5-15 [facility] Comment on above: Result Comment: Canc elled via OM: Order cancelled - Patient discharged Performed By: #### L 500.2500, L100.0100 ####[facility] [address] [place], [address] GLU Normal 70-99 [facility] Comment on above: Result Comment: Canc elled via OM: Order cancelled - Patient discharged Performed By: #### L 500.2500, L100.0100 ####[facility] [address] [place], [address] Potassium Normal 3.3-5.1 [facility] Comment on above: Result Comment: Canc elled via OM: Order cancelled - Patient discharged Performed By: #### L 500.2500, L100.0100 ####[facility] [address] [place], [address] Basic Metabolic Profile (BMP) Normal 133-145 [facility] Comment on above: Result Comment: Canc elled via OM: Order cancelled - Patient discharged Performed By: #### L 500.2500, L100.0100 ####[facility] [address] [place], [address] CBC W/Diff, Automatedon 03-2 Absolute Neut Normal 2.0-7.7 [facility] Comment on above: Result Comment: Canc elled via OM: Order cancelled - Patient discharged Performed By: #### L 500.2500, L100.0100 ####[facility] [address] [place], [address] HCT Normal 37-47 [facility] Comment on above: Result Comment: Canc elled via OM: Order cancelled - Patient discharged Performed By: #### L 500.2500, L100.0100 ####[facility] [address] [place], [address] HGB Normal 12.0-15.0 [facility] Comment on above: Result Comment: Canc elled via OM: Order cancelled - Patient discharged Performed By: #### L 500.2500, L100.0100 ####[facility] [address] [place], [address] MCH Normal 27.0-32.0 [facility] Comment on above: Result Comment: Canc elled via OM: Order cancelled - Patient discharged Performed By: #### L 500.2500, L100.0100 ####[facility] [address] [place], [address] MCHC Normal 32-36 [facility] Comment on above: Result Comment: Canc elled via OM: Order cancelled - Patient discharged Performed By: #### L 500.2500, L100.0100 ####[facility] [address] [place], [address] MCV Normal 81-99 [facility] Comment on above: Result Comment: Canc elled via OM: Order cancelled - Patient discharged Performed By: #### L 500.2500, L100.0100 ####[facility] [address] [place], [address] NEUT% Normal 47-70 [facility] Comment on above: Result Comment: Canc elled via OM: Order cancelled - Patient discharged Performed By: #### L 500.2500, L100.0100 ####[facility] [address] [place], [address] PLT Normal 150-450 [facility] Comment on above: Result Comment: Canc elled via OM: Order cancelled - Patient discharged Performed By: #### L 500.2500, L100.0100 ####[facility] [address] [place], [address] RBC Normal 4.2-5.4 [facility] Comment on above: Result Comment: Canc elled via OM: Order cancelled - Patient discharged Performed By: #### L 500.2500, L100.0100 ####[facility] [address] [place], [address] RDW CV Normal 11.6-14.6 [facility] Comment on above: Result Comment: Canc elled via OM: Order cancelled - Patient discharged Performed By: #### L 500.2500, L100.0100 ####[facility] [address] [place], [address] RDW SD Normal 35.1-43.9 [facility] Comment on above: Result Comment: Canc elled via OM: Order cancelled - Patient discharged Performed By: #### L 500.2500, L100.0100 ####[facility] [address] [place], [address] WBC Normal 4.4-11.0 [facility] Comment on above: Result Comment: Canc elled via OM: Order cancelled - Patient discharged Performed By: #### L 500.2500, L100.0100 ####[facility] [address] [place], [address] Gastroenterology Visit Repor ton 12-16-2024 Gastroenterology Visit Report Normal [facility] Basic Metabolic Profile (BMP )on 12-15-2024 BUN Normal 4-19 [facility] Comment on above: Result Comment: Canc elled via OM: Order cancelled - Patient discharged Performed By: #### L 500.2500, L100.0100 ####[facility] [address] [place], [address] BUN/CRE Normal 10-20 [facility] Comment on above: Result Comment: Canc elled via OM: Order cancelled - Patient discharged Performed By: #### L 500.2500, L100.0100 ####[facility] [address] [place], [address] Calcium Normal 7.6-11.0 [facility] Comment on above: Result Comment: Canc elled via OM: Order cancelled - Patient discharged Performed By: #### L 500.2500, L100.0100 ####[facility] [address] [place], [address] CL Normal 98-108 [facility] Comment on above: Result Comment: Canc elled via OM: Order cancelled - Patient discharged Performed By: #### L 500.2500, L100.0100 ####[facility] [address] [place], [address] CO2 Normal 21.0-32.0 [facility] Comment on above: Result Comment: Canc elled via OM: Order cancelled - Patient discharged Performed By: #### L 500.2500, L100.0100 ####[facility] [address] [place], [address] CREAT,SERUM Normal 0.70-1.20 [facility] Comment on above: Result Comment: Canc elled via OM: Order cancelled - Patient discharged Performed By: #### L 500.2500, L100.0100 ####[facility] [address] [place], [address] eGFR Normal >60 [facility] Comment on above: Result Comment: Canc elled via OM: Order cancelled - Patient discharged Performed By: #### L 500.2500, L100.0100 ####[facility] [address] [place], [address] GAP Normal 5-15 [facility] Comment on above: Result Comment: Canc elled via OM: Order cancelled - Patient discharged Performed By: #### L 500.2500, L100.0100 ####[facility] [address] [place], [address] GLU Normal 70-99 [facility] Comment on above: Result Comment: Canc elled via OM: Order cancelled - Patient discharged Performed By: #### L 500.2500, L100.0100 ####[facility] [address] [place], [address] Potassium Normal 3.3-5.1 [facility] Comment on above: Result Comment: Canc elled via OM: Order cancelled - Patient discharged Performed By: #### L 500.2500, L100.0100 ####[facility] [address] [place], [address] Basic Metabolic Profile (BMP) Normal 133-145 [facility] Comment on above: Result Comment: Canc elled via OM: Order cancelled - Patient discharged Performed By: #### L 500.2500, L100.0100 ####[facility] [address] [place], [address] CBC W/Diff, Automatedon 03-2 0-2024 Absolute Neut Normal 2.0-7.7 [facility] Comment on above: Result Comment: Canc elled via OM: Order cancelled - Patient discharged Performed By: #### L 500.2500, L100.0100 ####[facility] [address] [place], [address] HCT Normal 37-47 [facility] Comment on above: Result Comment: Canc elled via OM: Order cancelled - Patient discharged Performed By: #### L 500.2500, L100.0100 ####[facility] [address] [place], [address] HGB Normal 12.0-15.0 [facility] Comment on above: Result Comment: Canc elled via OM: Order cancelled - Patient discharged Performed By: #### L 500.2500, L100.0100 ####[facility] [address] [place], [address] MCH Normal 27.0-32.0 [facility] Comment on above: Result Comment: Canc elled via OM: Order cancelled - Patient discharged Performed By: #### L 500.2500, L100.0100 ####[facility] [address] [place], [address] MCHC Normal 32-36 [facility] Comment on above: Result Comment: Canc elled via OM: Order cancelled - Patient discharged Performed By: #### L 500.2500, L100.0100 ####[facility] [address] [place], [address] MCV Normal 81-99 [facility] Comment on above: Result Comment: Canc elled via OM: Order cancelled - Patient discharged Performed By: #### L 500.2500, L100.0100 ####[facility] [address] [place], [address] NEUT% Normal 47-70 [facility] Comment on above: Result Comment: Canc elled via OM: Order cancelled - Patient discharged Performed By: #### L 500.2500, L100.0100 ####[facility] [address] [place], [address] PLT Normal 150-450 [facility] Comment on above: Result Comment: Canc elled via OM: Order cancelled - Patient discharged Performed By: #### L 500.2500, L100.0100 ####[facility] [address] [place], [address] RBC Normal 4.2-5.4 [facility] Comment on above: Result Comment: Canc elled via OM: Order cancelled - Patient discharged Performed By: #### L 500.2500, L100.0100 ####[facility] [address] [place], [address] RDW CV Normal 11.6-14.6 [facility] Comment on above: Result Comment: Canc elled via OM: Order cancelled - Patient discharged Performed By: #### L 500.2500, L100.0100 ####[facility] [address] [place], [address] RDW SD Normal 35.1-43.9 [facility] Comment on above: Result Comment: Canc elled via OM: Order cancelled - Patient discharged Performed By: #### L 500.2500, L100.0100 ####[facility] [address] [place], [address] WBC Normal 4.4-11.0 [facility] Comment on above: Result Comment: Canc elled via OM: Order cancelled - Patient discharged Performed By: #### L 500.2500, L100.0100 ####[facility] [address] [place], [address] Basic Metabolic Profile (BMP )on 12-14-2024 BUN Normal -19 [facility] Comment on above: Result Comment: Canc elled via OM: Order cancelled - Patient discharged Performed By: #### L 100.0100, L500.2500 ####[facility] [address] [place], [address] BUN/CRE Normal 10-20 [facility] Comment on above: Result Comment: Canc elled via OM: Order cancelled - Patient discharged Performed By: #### L 100.0100, L500.2500 ####[facility] [address] [place], [address] Calcium Normal 7.6-11.0 [facility] Comment on above: Result Comment: Canc elled via OM: Order cancelled - Patient discharged Performed By: #### L 100.0100, L500.2500 ####[facility] [address] [place], [address] CL Normal 98-108 [facility] Comment on above: Result Comment: Canc elled via OM: Order cancelled - Patient discharged Performed By: #### L 100.0100, L500.2500 ####[facility] [address] [place], [address] CO2 Normal 21.0-32.0 [facility] Comment on above: Result Comment: Canc elled via OM: Order cancelled - Patient discharged Performed By: #### L 100.0100, L500.2500 ####[facility] [address] [place], [address] CREAT,SERUM Normal 0.70-1.20 [facility] Comment on above: Result Comment: Canc elled via OM: Order cancelled - Patient discharged Performed By: #### L 100.0100, L500.2500 ####[facility] [address] [place], [address] eGFR Normal >60 [facility] Comment on above: Result Comment: Canc elled via OM: Order cancelled - Patient discharged Performed By: #### L 100.0100, L500.2500 ####[facility] [address] [place], [address] GAP Normal 5-15 [facility] Comment on above: Result Comment: Canc elled via OM: Order cancelled - Patient discharged Performed By: #### L 100.0100, L500.2500 ####[facility] [address] [place], [address] GLU Normal 70-99 [facility] Comment on above: Result Comment: Canc elled via OM: Order cancelled - Patient discharged Performed By: #### L 100.0100, L500.2500 ####[facility] [address] [place], [address] Potassium Normal 3.3-5.1 [facility] Comment on above: Result Comment: Canc elled via OM: Order cancelled - Patient discharged Performed By: #### L 100.0100, L500.2500 ####[facility] [address] [place], [address] Basic Metabolic Profile (BMP) Normal 133-145 [facility] Comment on above: Result Comment: Canc elled via OM: Order cancelled - Patient discharged Performed By: #### L 100.0100, L500.2500 ####[facility] [address] [place], [address] CBC W/Diff, Automatedon - Absolute Neut Normal 2.0-7.7 [facility] Comment on above: Result Comment: Canc elled via OM: Order cancelled - Patient discharged Performed By: #### L 100.0100, L500.2500 ####[facility] [address] [place], [address] HCT Normal 37-47 [facility] Comment on above: Result Comment: Canc elled via OM: Order cancelled - Patient discharged Performed By: #### L 100.0100, L500.2500 ####[facility] [address] [place], [address] HGB Normal 12.0-15.0 [facility] Comment on above: Result Comment: Canc elled via OM: Order cancelled - Patient discharged Performed By: #### L 100.0100, L500.2500 ####[facility] [address] [place], [address] MCH Normal 27.0-32.0 [facility] Comment on above: Result Comment: Canc elled via OM: Order cancelled - Patient discharged Performed By: #### L 100.0100, L500.2500 ####[facility] [address] [place], [address] MCHC Normal 32-36 [facility] Comment on above: Result Comment: Canc elled via OM: Order cancelled - Patient discharged Performed By: #### L 100.0100, L500.2500 ####[facility] [address] [place], [address] MCV Normal 81-99 [facility] Comment on above: Result Comment: Canc elled via OM: Order cancelled - Patient discharged Performed By: #### L 100.0100, L500.2500 ####[facility] [address] [place], [address] NEUT% Normal 47-70 [facility] Comment on above: Result Comment: Canc elled via OM: Order cancelled - Patient discharged Performed By: #### L 100.0100, L500.2500 ####[facility] [address] [place], [address] PLT Normal 150-450 [facility] Comment on above: Result Comment: Canc elled via OM: Order cancelled - Patient discharged Performed By: #### L 100.0100, L500.2500 ####[facility] [address] [place], [address] RBC Normal 4.2-5.4 [facility] Comment on above: Result Comment: Canc elled via OM: Order cancelled - Patient discharged Performed By: #### L 100.0100, L500.2500 ####[facility] [address] [place], [address] RDW CV Normal 11.6-14.6 [facility] Comment on above: Result Comment: Canc elled via OM: Order cancelled - Patient discharged Performed By: #### L 100.0100, L500.2500 ####[facility] [address] [place], [address] RDW SD Normal 35.1-43.9 [facility] Comment on above: Result Comment: Canc elled via OM: Order cancelled - Patient discharged Performed By: #### L 100.0100, L500.2500 ####[facility] [address] [place], [address] WBC Normal 4.4-11.0 [facility] Comment on above: Result Comment: Canc elled via OM: Order cancelled - Patient discharged Performed By: #### L 100.0100, L500.2500 ####[facility] [address] [place], [address] Basic Metabolic Profile (BMP )on 12-13-2024 BUN Normal 4-19 [facility] Comment on above: Result Comment: Canc elled via OM: Order cancelled - Patient discharged Performed By: #### L 100.0100, L500.2500 ####[facility] [address] [place], [address] BUN/CRE Normal 10-20 [facility] Comment on above: Result Comment: Canc elled via OM: Order cancelled - Patient discharged Performed By: #### L 100.0100, L500.2500 ####[facility] [address] [place], [address] Calcium Normal 7.6-11.0 [facility] Comment on above: Result Comment: Canc elled via OM: Order cancelled - Patient discharged Performed By: #### L 100.0100, L500.2500 ####[facility] [address] [place], [address] CL Normal 98-108 [facility] Comment on above: Result Comment: Canc elled via OM: Order cancelled - Patient discharged Performed By: #### L 100.0100, L500.2500 ####[facility] [address] [place], [address] CO2 Normal 21.0-32.0 [facility] Comment on above: Result Comment: Canc elled via OM: Order cancelled - Patient discharged Performed By: #### L 100.0100, L500.2500 ####[facility] [address] [place], [address] CREAT,SERUM Normal 0.70-1.20 [facility] Comment on above: Result Comment: Canc elled via OM: Order cancelled - Patient discharged Performed By: #### L 100.0100, L500.2500 ####[facility] [address] [place], [address] eGFR Normal >60 [facility] Comment on above: Result Comment: Canc elled via OM: Order cancelled - Patient discharged Performed By: #### L 100.0100, L500.2500 ####[facility] [address] [place], [address] GAP Normal 5-15 [facility] Comment on above: Result Comment: Canc elled via OM: Order cancelled - Patient discharged Performed By: #### L 100.0100, L500.2500 ####[facility] [address] [place], [address] GLU Normal 70-99 [facility] Comment on above: Result Comment: Canc elled via OM: Order cancelled - Patient discharged Performed By: #### L 100.0100, L500.2500 ####[facility] [address] [place], [address] Potassium Normal 3.3-5.1 [facility] Comment on above: Result Comment: Canc elled via OM: Order cancelled - Patient discharged Performed By: #### L 100.0100, L500.2500 ####[facility] [address] [place], [address] Basic Metabolic Profile (BMP) Normal 133-145 [facility] Comment on above: Result Comment: Canc elled via OM: Order cancelled - Patient discharged Performed By: #### L 100.0100, L500.2500 ####[facility] [address] [place], [address] CBC W/Diff, Automatedon 03- Absolute Neut Normal 2.0-7.7 [facility] Comment on above: Result Comment: Canc elled via OM: Order cancelled - Patient discharged Performed By: #### L 100.0100, L500.2500 ####[facility] [address] [place], [address] HCT Normal 37-47 [facility] Comment on above: Result Comment: Canc elled via OM: Order cancelled - Patient discharged Performed By: #### L 100.0100, L500.2500 ####[facility] [address] [place], [address] HGB Normal 12.0-15.0 [facility] Comment on above: Result Comment: Canc elled via OM: Order cancelled - Patient discharged Performed By: #### L 100.0100, L500.2500 ####[facility] [address] [place], [address] MCH Normal 27.0-32.0 [facility] Comment on above: Result Comment: Canc elled via OM: Order cancelled - Patient discharged Performed By: #### L 100.0100, L500.2500 ####[facility] [address] [place], [address] MCHC Normal 32-36 [facility] Comment on above: Result Comment: Canc elled via OM: Order cancelled - Patient discharged Performed By: #### L 100.0100, L500.2500 ####[facility] [address] [place], [address] MCV Normal 81-99 [facility] Comment on above: Result Comment: Canc elled via OM: Order cancelled - Patient discharged Performed By: #### L 100.0100, L500.2500 ####[facility] [address] [place], [address] NEUT% Normal 47-70 [facility] Comment on above: Result Comment: Canc elled via OM: Order cancelled - Patient discharged Performed By: #### L 100.0100, L500.2500 ####[facility] [address] [place], [address] PLT Normal 150-450 [facility] Comment on above: Result Comment: Canc elled via OM: Order cancelled - Patient discharged Performed By: #### L 100.0100, L500.2500 ####[facility] [address] [place], [address] RBC Normal 4.2-5.4 [facility] Comment on above: Result Comment: Canc elled via OM: Order cancelled - Patient discharged Performed By: #### L 100.0100, L500.2500 ####[facility] [address] [place], [address] RDW CV Normal 11.6-14.6 [facility] Comment on above: Result Comment: Canc elled via OM: Order cancelled - Patient discharged Performed By: #### L 100.0100, L500.2500 ####[facility] [address] [place], [address] RDW SD Normal 35.1-43.9 [facility] Comment on above: Result Comment: Canc elled via OM: Order cancelled - Patient discharged Performed By: #### L 100.0100, L500.2500 ####[facility] [address] [place], [address] WBC Normal 4.4-11.0 [facility] Comment on above: Result Comment: Canc elled via OM: Order cancelled - Patient discharged Performed By: #### L 100.0100, L500.2500 ####[facility] [address] [place], [address] Respiratory Cultureon 2024 RESPC Mixed normal respiratory benjie. No Streptococcus pneumoniae, beta-hemolytic Streptococcus or Staphylococcus aureus isolated. Normal [facility] Comment on above: Performed By: #### M 100.2000, M100.2400 ####[facility] [address] [place], [address] Absolute lymphocyte countOrd ered By: Anastacia Bonilla on 12-12-2024 Lymphocytes Auto (Unsp spec) [#/Vol] 4.36 10*3/uL 0.83-4.51 [facility] Absolute neutrophil countOrd ered By: Anastacia Bonilla on 12-12-2024 Neutrophils (Bld) [#/Vol] 17.2 10*3/uL High 2.0-7.7 [facility] Absolute neutrophil count 17.2 X10^3/uL High 2.0-7.7 [facility] Anion gap [Moles/Vol]Ordered By: Anastacia Bonilla on 12-12-2024 Anion gap in Serum or Plasma 8 02-09 [facility] Anion gap in Serum or Plasma Ordered By: Anastacia Bonilla on 12-12-2024 Anion gap [Moles/Vol] 8 mmol/L 02-09 [facility] BUN/creatinine ratioOrdered By: Anastacia Bonilla on 12-12-2024 Urea nitrogen/Creatinine [Mass ratio] 32.0 mg/mg High 07-17 [facility] BUN/creatinine ratio 32.0 RATIO High 07-[address] [facility] Band form neutrophils/100 WB C (Bld)Ordered By: Anastacia Bonilla on 12-12-2024 Blood band neutrophil count as percentage of total leukocytes 2 % 0- [facility] Basic Metabolic Profile (BMP )on 12-12-2024 BUN/CRE 32.0 RATIO High - [facility] Comment on above: Performed By: #### L 500.2500, L100.0100 ####[facility] [address] [place], [address] Calcium [Mass/Vol] 8.9 mg/dL Normal 7.6-11.0 [facility] Comment on above: Performed By: #### L 500.2500, L100.0100 ####[facility] [address] [place], [address] Chloride [Moles/Vol] 95 mmol/L Low 98-[address] [facility] Comment on above: Performed By: #### L 500.2500, L100.0100 ####[facility] [address] [place], [address] CO2 [Moles/Vol] 34.4 mmol/L High 21.0-32.0 [facility] Comment on above: Performed By: #### L 500.2500, L100.0100 ####[facility] [address] [place], [address] Creatinine [Mass/Vol] 0.77 mg/dL Normal 0.70-1.20 [facility] Comment on above: Performed By: #### L 500.2500, L100.0100 ####[facility] [address] [place], [address] ECRCL 63.47 ml/min Normal 50-250 [facility] Comment on above: Performed By: #### L 500.2500, L100.0100 ####[facility] [address] [place], [address] GAP 8 Normal 5-15 [facility] Comment on above: Performed By: #### L 500.2500, L100.0100 ####[facility] [address] [place], [address] GFR/1.73 sq M.predicted among non-blacks MDRD (S/P/Bld) [Vol rate/Area] 87 mL/min/{1.73_m2} Normal >60 [facility] Comment on above: Result Comment: mL/m in/1.73m2 CKD-EPI Creatinine Equation (2020) Performed By: #### L 500.2500, L100.0100 ####[facility] [address] [place], [address] Glucose [Mass/Vol] 80 mg/dL Normal 70-99 [facility] Comment on above: Performed By: #### L 500.2500, L100.0100 ####[facility] [address] [place], [address] Potassium [Moles/Vol] 4.1 mmol/L Normal 3.3-5.1 [facility] Comment on above: Performed By: #### L 500.2500, L100.0100 ####[facility] [address] [place], [address] Sodium [Moles/Vol] 137 mmol/L Normal 133-145 [facility] Comment on above: Performed By: #### L 500.2500, L100.0100 ####[facility] [address] [place], [address] Urea nitrogen [Mass/Vol] 25 mg/dL High 4-19 [facility] Comment on above: Performed By: #### L 500.2500, L100.0100 ####[facility] [address] [place], [address] Blood band neutrophil count as percentage of total leukocytesOrdered By: Anastacia Bonilla on 12-12-2024 Band form neutrophils/100 WBC (Bld) 2 % 0-5 [facility] Blood lymphocytes/100 leukoc ytesOrdered By: Anastacia Bonilla on 12-12-2024 Lymphocytes/100 WBC (Bld) 17 % Low 19-41 [facility] Blood manual differential co mment interpretation (narrative result)Ordered By: Anastacia Bonilla on 12-12-2024 Manual differential comment Geovany (Bld) [Interp] SCANNED [facility] Blood metamyelocytes/100 scott kocytesOrdered By: Anastacia Bonilla on 12-12-2024 Metamyelocytes/100 WBC (Bld) 1 % 0-1 [facility] Blood monocytes/100 leukocyt esOrdered By: Anastacia Bonilla on 12-12-2024 Monocytes/100 WBC (Bld) 5 % 0-10 [facility] Blood segmented neutrophils/ 100 leukocytesOrdered By: Anastacia Bonilla on 12-12-2024 Segmented neutrophils/100 WBC (Bld) 65 % 47-70 [facility] Calcium [Mass/Vol]Ordered By : Anastacia Bonilla on 12-12-2024 Serum or plasma calcium measurement (mass/volume) 8.9 mg/dL 7.6-11.0 [facility] Carbon dioxide, total [Moles /volume] in Central venous bloodOrdered By: Anastacia Bonilla on 12-12-2024 CO2 [Moles/Vol] 34.4 mmol/L High 21.0-32.0 [facility] Carbon dioxide, total [Moles/volume] in Central venous blood 34.4 mmol/L High 21.0-32.0 [facility] Cells counted Molgen (Bld/Ti ss) [#]Ordered By: Anastacia Bonilla on 12-12-2024 Differential Total Cells Counted 100 MANUAL DIFF [facility] Total cell count 100 MANUAL DIFF [facility] Chloride assayOrdered By: Emily Bonilla on 12-12-2024 Chloride [Moles/Vol] 95 mmol/L Low 98-[address] [facility] Chloride assay 95 mmol/L Low 98-108 [facility] Creatinine [Mass/Vol]Ordered By: Anastacia Bonilla on 12-12-2024 Serum creatinine measurement (mass/volume) 0.77 mg/dL 0.70-1.20 [facility] Discharge Instructionon 11-26 Discharge Instruction Normal [facility] EGD Reporton 12-12-2024 EGD Report Normal [facility] Erythrocyte distribution wid th (RBC) [Ratio]Ordered By: Anastacia Bonilla on 12-12-2024 Erythrocyte distribution width ratio 14.6 % 11.6-14.6 [facility] Erythrocyte distribution wid th ratioOrdered By: Anastacia Bonilla on 12-12-2024 Erythrocyte distribution width (RBC) [Ratio] 14.6 % 11.6-14.6 [facility] Erythrocyte distribution wid th standard deviationOrdered By: Anastacia Bonilla on 12-12-2024 Erythrocyte distribution width (RBC) [Entitic vol] 46.5 fL High 35.1-43.9 [facility] Erythrocyte distribution width (RBC) [Ratio] 46.5 fl High 35.1-43.9 [facility] Erythrocyte distribution width standard deviation 46.5 fl High 35.1-43.9 [facility] Estimation of creatinine binu aranceOrdered By: Anastacia Bonilla on 12-12-2024 Estimated Creatinine Clearance Calc 63.47 ml/min 50-250 [facility] Estimation of creatinine clearance 63.47 ml/min 50-250 [facility] GFR/1.73 sq M.predicted gregory g non-blacks MDRD (S/P/Bld) [Vol rate/Area]Ordered By: Anastacia Bonilla on 12-12-2024 Estimated GFR (MDRD) Non-Af Amer 87 >60 [facility] Comment on above: mL/min/1.73m2 CKD-EP I Creatinine Equation (2020) Glomerular filtration rate (GFR) estimation/1.73 sq m using serum, plasma, or whole b 87 >60 [facility] Glomerular filtration rate ( GFR) estimation/1.73 sq m using serum, plasma, or whole bOrdered By: Anastacia Bonilla on 12-12-2024 GFR/1.73 sq M.predicted among non-blacks MDRD (S/P/Bld) [Vol rate/Area] 87 mL/min/{1.73_m2} >60 [facility] Glucose [Mass/Vol]Ordered By : Anastacia Bonilla on 12-12-2024 Serum glucose measurement (mass/volume) 80 mg/dL 70-99 [facility] Hematocrit Auto (Bld) [Volum e fraction]Ordered By: Anastacia Bonilla on 12-12-2024 Hematocrit (Bld) [Volume fraction] 44.4 % 37-47 [facility] Automated blood hematocrit (percentage) 44.4 % 37-47 [facility] Hemoglobin measurementOrdere d By: Anastacia Bonilla on 12-12-2024 Hemoglobin (Bld) [Mass/Vol] 13.7 g/dL 12.0-15.0 [facility] Hemoglobin measurement 13.7 g/dL 12.0-15.0 [facility] Lymphocytes Auto (Unsp spec) [#/Vol]Ordered By: Anastacia Bonilla on 12-12-2024 Lymphocytes (Bld) [#/Vol] 4.36 10*3/uL 0.83-4.51 [facility] Absolute lymphocyte count 4.36 X10^3/uL 0.83-4.51 [facility] Lymphocytes/100 WBC (Bld)Ord ered By: Anastacia Bonilla on 12-12-2024 Blood lymphocytes/100 leukocytes 17 % Low 19-41 [facility] MCV (RBC) [Entitic vol]Order ed By: Anastacia Bonilla on 12-12-2024 MCV (mean corpuscular volume) determination 86.2 fL 81-99 [facility] MCV (mean corpuscular volume ) determinationOrdered By: Anastacia Bonilla on 12-12-2024 MCV (RBC) [Entitic vol] 86.2 fL 81-99 [facility] MR/POSTOP.ANEon 12-12-2024 MR/POSTOP.ANE Normal [facility] MR/[id number] 12-12-2024 MR/POSTOPAN2 Normal [facility] Manual differential comment Geovany (Bld) [Interp]Ordered By: Anastacia Bonilla on 12-12-2024 Differential Comment SCANNED [facility] Comment on above: LYMPHOCYTOSIS PRESEN TMONOCYTOSIS PRESENT Blood manual differential comment interpretation (narrative result) SCANNED [facility] Mean corpuscular hemoglobin (MCH) determinationOrdered By: Anastacia Bonilla on 12-12-2024 MCH (RBC) [Entitic mass] 26.6 pg Low 27.0-32.0 [facility] Mean corpuscular hemoglobin (MCH) determination 26.6 pg Low 27.0-32.0 [facility] Mean corpuscular hemoglobin concentration (MCHC) determinationOrdered By: Anastacia Bonilla on 12-12-2024 MCHC (RBC) [Mass/Vol] 30.9 g/dL Low 32-36 [facility] Mean corpuscular hemoglobin concentration (MCHC) determination 30.9 g/dL Low 32-36 [facility] Mean platelet volume determi nationOrdered By: Anastacia Bonilla on 12-12-2024 Platelet mean volume (Bld) [Entitic vol] 10.1 fL 6.2-12.0 [facility] Mean platelet volume determination 10.1 fl 6.2-12.0 [facility] Metamyelocytes/100 WBC (Bld) Ordered By: Anastacia Bonilla on 12-12-2024 Blood metamyelocytes/100 leukocytes 1 % 0-1 [facility] Monocytes/100 WBC (Bld)Order ed By: Anastacia Bonilla on 12-12-2024 Blood monocytes/100 leukocytes 5 % 0-10 [facility] Myelocyte %Ordered By: Anastacia Bonilla on 12-12-2024 Myelocytes/100 WBC (Bld) 7 % High 0-0 [facility] Myelocyte % 7 % High 0-0 [facility] Neutrophil percentageOrdered By: Anastacia Bonilla on 12-12-2024 Neutrophils (%) (Auto) Not Reportable [facility] Neutrophil percentage Not Reportable [facility] Pathologist review Geovany (Unsp spec) [Interp]Ordered By: Anastacia Bonilla on 12-12-2024 Differential Pathologist's Review [facility] Review by pathologist [facility] Review by pathologist N/A [facility] Platelet countOrdered By: Emily Bonilla on 12-12-2024 Platelets (Bld) [#/Vol] 345 10*3/uL 150-450 [facility] Platelet count 345 K/mm3 150-450 [facility] Potassium (Unsp spec) [Mass/ Vol]Ordered By: Anastacia Bonilla on 12-12-2024 Potassium [Moles/Vol] 4.1 mmol/L 3.3-5.1 [facility] Potassium measurement (mass/volume) 4.1 mmol/L 3.3-5.1 [facility] Potassium measurement (mass/ volume)Ordered By: Anastacia Bonilla on 12-12-2024 Potassium (Unsp spec) [Mass/Vol] 4.1 mmol/L 3.3-5.1 [facility] RBC Auto (Bld) [#/Vol]Ordere d By: Anastacia Bonilla on 12-12-2024 RBC (Bld) [#/Vol] 5.15 10*6/uL 4.2-5.4 [facility] Automated blood erythrocyte count 5.15 M/mm3 4.2-5.4 [facility] Review by pathologistOrdered By: Anastacia Bonilla on 12-12-2024 Pathologist review Geovany (Unsp spec) [Interp] N/A [facility] Segmented neutrophils/100 WB C (Bld)Ordered By: Anastacia Bonilla on 12-12-2024 Neutrophils/100 WBC (Bld) 65 % 47-70 [facility] Blood segmented neutrophils/100 leukocytes 65 % 47-70 [facility] Serum creatinine measurement (mass/volume)Ordered By: Anastacia Bonilla on 12-12-2024 Creatinine [Mass/Vol] 0.77 mg/dL 0.70-1.20 [facility] Serum glucose measurement (m ass/volume)Ordered By: Anastacia Bonilla on 12-12-2024 Glucose [Mass/Vol] 80 mg/dL 70-99 [facility] Serum or plasma calcium esthela urement (mass/volume)Ordered By: Anastacia Bonilla on 12-12-2024 Calcium [Mass/Vol] 8.9 mg/dL 7.6-11.0 [facility] Serum or plasma urea nitroge n measurement (mass/volume)Ordered By: Anastacia Bonilla on 12-12-2024 Urea nitrogen [Mass/Vol] 25 mg/dL High 01-14 [facility] Sodium levelOrdered By: Anastacia Bonilla on 12-12-2024 Sodium [Moles/Vol] 137 mmol/L 133-145 [facility] Sodium level 137 mmol/L 133-145 [facility] Total cell countOrdered By: Anastacia Bonilla on 12-12-2024 Cells counted Mol[employer] (Bld/Tiss) [#] 100 MANUAL DIFF [facility] Urea nitrogen [Mass/Vol]Orde red By: Anastacia Bonilla on 12-12-2024 Serum or plasma urea nitrogen measurement (mass/volume) 25 mg/dL High - [facility] White blood cell (WBC) count Ordered By: Anastacia Bonilla on 12-12-2024 WBC (Bld) [#/Vol] 25.7 10*3/uL High 4.4-11.0 [facility] White blood cell (WBC) count 25.7 K/mm3 High 4.4-11.0 [facility] Basic Metabolic Profile (BMP )on 12-11-2024 BUN/CRE 36.7 RATIO High 10-20 [facility] Comment on above: Performed By: #### L 100.0100, L500.2500 ####[facility] [address] [place], [address] Calcium [Mass/Vol] 9.0 mg/dL Normal 7.6-11.0 [facility] Comment on above: Performed By: #### L 100.0100, L500.2500 ####[facility] [address] [place], [address] Chloride [Moles/Vol] 96 mmol/L Low 98-[address] [facility] Comment on above: Performed By: #### L 100.0100, L500.2500 ####[facility] [address] [place], [address] CO2 [Moles/Vol] 27.6 mmol/L Normal 21.0-32.0 [facility] Comment on above: Performed By: #### L 100.0100, L500.2500 ####[facility] [address] [place], [address] Creatinine [Mass/Vol] 0.79 mg/dL Normal 0.70-1.20 [facility] Comment on above: Performed By: #### L 100.0100, L500.2500 ####[facility] [address] [place], [address] ECRCL 61.86 ml/min Normal 50-250 [facility] Comment on above: Performed By: #### L 100.0100, L500.2500 ####[facility] [address] [place], [address] GAP 13 Normal 5-15 [facility] Comment on above: Performed By: #### L 100.0100, L500.2500 ####[facility] [address] [place], [address] GFR/1.73 sq M.predicted among non-blacks MDRD (S/P/Bld) [Vol rate/Area] 85 mL/min/{1.73_m2} Normal >60 [facility] Comment on above: Result Comment: mL/m in/1.73m2 CKD-EPI Creatinine Equation (2020) Performed By: #### L 100.0100, L500.2500 ####[facility] [address] [place], [address] Glucose [Mass/Vol] 79 mg/dL Normal 70-99 [facility] Comment on above: Performed By: #### L 100.0100, L500.2500 ####[facility] [address] [place], [address] Potassium [Moles/Vol] 4.4 mmol/L Normal 3.3-5.1 [facility] Comment on above: Performed By: #### L 100.0100, L500.2500 ####[facility] [address] [place], [address] Sodium [Moles/Vol] 137 mmol/L Normal 133-145 [facility] Comment on above: Performed By: #### L 100.0100, L500.2500 ####[facility] [address] [place], [address] Urea nitrogen [Mass/Vol] 29 mg/dL High 4-19 [facility] Comment on above: Performed By: #### L 100.0100, L500.2500 ####[facility] [address] [place], [address] Gram Stainon 12-11-2024 GS Acceptable Specimen? Yes (<25 Epithelial cells per/lpf) Gram Stain 1+ Gram positive cocci 1+ Epithelial cells No White Blood Cells Normal [facility] Comment on above: Performed By: #### M 100.2000, M100.2400 ####[facility] [address] [place], [address] Laboratory - Hematology and Cell countsOrdered By: Anastacia Bonilla on 12-11-2024 Anisocytosis Ql (Bld) 1+ [facility] Microcytosis evaluation pane lOrdered By: Anastacia Bonilla on 12-11-2024 Microcytosis 1+ [facility] Microcytosis evaluation panel 1+ [facility] Ovalocyte detectionOrdered B y: Anastacia Bonilla on 12-11-2024 Ovalocytes LM Ql (Bld) 1+ [facility] Ovalocytes LM Ql (Bld)Ordere d By: Anastacia Bonilla on 12-11-2024 Ovalocytes 1+ [facility] Platelet estimateOrdered By: Anastacia Bonilla on 12-11-2024 Platelets LM Ql (Bld) ADEQUATE ADEQ [facility] Platelets LM Ql (Bld)Ordered By: Anastacia Bonilla on 12-11-2024 Platelet Estimate [facility] Platelet estimate ADEQUATE [facility] Basic Metabolic Profile (BMP )on 12-10-2024 BUN/CRE 41.3 RATIO High 10-20 [facility] Comment on above: Performed By: #### L 100.0100, L500.2500 ####[facility] [address] [place], [address] Calcium [Mass/Vol] 9.5 mg/dL Normal 7.6-11.0 [facility] Comment on above: Performed By: #### L 100.0100, L500.2500 ####[facility] [address] [place], [address] Chloride [Moles/Vol] 97 mmol/L Low 98-[address] [facility] Comment on above: Performed By: #### L 100.0100, L500.2500 ####[facility] [address] [place], [address] CO2 [Moles/Vol] 28.4 mmol/L Normal 21.0-32.0 [facility] Comment on above: Performed By: #### L 100.0100, L500.2500 ####[facility] [address] [place], [address] Creatinine [Mass/Vol] 0.82 mg/dL Normal 0.70-1.20 [facility] Comment on above: Performed By: #### L 100.0100, L500.2500 ####[facility] [address] [place], [address] ECRCL 59.60 ml/min Normal 50-250 [facility] Comment on above: Performed By: #### L 100.0100, L500.2500 ####[facility] [address] [place], [address] GAP 11 Normal 5-15 [facility] Comment on above: Performed By: #### L 100.0100, L500.2500 ####[facility] [address] [place], [address] GFR/1.73 sq M.predicted among non-blacks MDRD (S/P/Bld) [Vol rate/Area] 81 mL/min/{1.73_m2} Normal >60 [facility] Comment on above: Result Comment: mL/m in/1.73m2 CKD-EPI Creatinine Equation (2020) Performed By: #### L 100.0100, L500.2500 ####[facility] [address] [place], [address] Glucose [Mass/Vol] 157 mg/dL High 70-99 [facility] Comment on above: Performed By: #### L 100.0100, L500.2500 ####[facility] [address] [place], [address] Potassium [Moles/Vol] 5.2 mmol/L High 3.3-5.1 [facility] Comment on above: Performed By: #### L 100.0100, L500.2500 ####[facility] [address] [place], [address] Sodium [Moles/Vol] 136 mmol/L Normal 133-145 [facility] Comment on above: Performed By: #### L 100.0100, L500.2500 ####[facility] [address] [place], [address] Urea nitrogen [Mass/Vol] 34 mg/dL High 4-19 [facility] Comment on above: Performed By: #### L 100.0100, L500.2500 ####[facility] [address] [place], [address] Blood eosinophils/100 leukoc ytesOrdered By: Anastacia Bonilla on 12-10-2024 Eosinophils/100 WBC (Bld) 1 % 0-5 [facility] Eosinophils/100 WBC (Bld)Ord ered By: Anastacia Bonilla on 12-10-2024 Blood eosinophils/100 leukocytes 1 % 0-5 [facility] Gram stainOrdered By: Ever Aguayo on 12-10-2024 Microscopic observation Gram stain Nom (Unsp spec) [facility] Microbial respiratory cultur eOrdered By: Aleta Aguayo on 12-10-2024 Microorganism identified Cx Nom (Unsp spec) or Staphylococcus aureus isolated. [facility] Microorganism identified Cx Nom (Unsp spec)Ordered By: Aleta Aguayo on 12-10-2024 Microbial respiratory culture or Staphylococcus aureus isolated. [facility] Platelet morphologyOrdered B y: Anastacia Bonilla on 12-10-2024 Platelet morphology finding Nom (Bld) G [facility] Platelet morphology finding Nom (Bld)Ordered By: Anastacia Bonilla on 12-10-2024 Platelet Morphology Comment G [facility] Platelet morphology G [facility] Basic Metabolic Profile (BMP )on 12-09-2024 BUN/CRE 40.8 RATIO High 10-20 [facility] Comment on above: Performed By: #### L 500.2500 ####[facility] [address] [place], [address] Calcium [Mass/Vol] 9.8 mg/dL Normal 7.6-11.0 [facility] Comment on above: Performed By: #### L 500.2500 ####[facility] [address] [place], [address] Chloride [Moles/Vol] 96 mmol/L Low 98-[address] [facility] Comment on above: Performed By: #### L 500.2500 ####[facility] [address] [place], [address] CO2 [Moles/Vol] 27.3 mmol/L Normal 21.0-32.0 [facility] Comment on above: Performed By: #### L 500.2500 ####[facility] [address] [place], [address] Creatinine [Mass/Vol] 0.85 mg/dL Normal 0.70-1.20 [facility] Comment on above: Performed By: #### L 500.2500 ####[facility] [address] [place], [address] ECRCL 57.49 ml/min Normal 50-250 [facility] Comment on above: Performed By: #### L 500.2500 ####[facility] [address] [place], [address] GAP 13 Normal 5-15 [facility] Comment on above: Performed By: #### L 500.2500 ####[facility] [address] [place], [address] GFR/1.73 sq M.predicted among non-blacks MDRD (S/P/Bld) [Vol rate/Area] 78 mL/min/{1.73_m2} Normal >60 [facility] Comment on above: Result Comment: mL/m in/1.73m2 CKD-EPI Creatinine Equation (2020) Performed By: #### L 500.2500 ####[facility] [address] [place], [address] Glucose [Mass/Vol] 176 mg/dL High 70-99 [facility] Comment on above: Performed By: #### L 500.2500 ####[facility] [address] [place], [address] Potassium [Moles/Vol] 5.0 mmol/L Normal 3.3-5.1 [facility] Comment on above: Performed By: #### L 500.2500 ####[facility] [address] [place], [address] Sodium [Moles/Vol] 135 mmol/L Normal 133-145 [facility] Comment on above: Performed By: #### L 500.2500 ####[facility] [address] [place], [address] Urea nitrogen [Mass/Vol] 35 mg/dL High 4-19 [facility] Comment on above: Performed By: #### L 500.2500 ####[facility] [address] [place], [address] Erythrocyte morphology asses smentOrdered By: Gonzalo Sebastian on 12-09-2024 RBC morphology finding Nom (Bld) NORM C+C NORMAL NORM C&C [facility] RBC morphology finding Nom ( Bld)Ordered By: Gonzalo Sebastian on 12-09-2024 Red Blood Cell Morphology NORM C+C NORMAL NORM C&C [facility] Erythrocyte morphology assessment NORM C+C NORMAL NORM C&C [facility] CBC W/Diff, Automatedon 11-26 Absolute Neut Normal 2.0-7.7 [facility] Comment on above: Result Comment: Canc elled via OM: Order edited - Discontinuing original order Performed By: #### L 100.0100 ####[facility] [address] [place], [address] HCT Normal 37-47 [facility] Comment on above: Result Comment: Canc elled via OM: Order edited - Discontinuing original order Performed By: #### L 100.0100 ####[facility] [address] [place], [address] HGB Normal 12.0-15.0 [facility] Comment on above: Result Comment: Canc elled via OM: Order edited - Discontinuing original order Performed By: #### L 100.0100 ####[facility] [address] [place], [address] MCH Normal 27.0-32.0 [facility] Comment on above: Result Comment: Canc elled via OM: Order edited - Discontinuing original order Performed By: #### L 100.0100 ####[facility] [address] [place], [address] MCHC Normal 32-36 [facility] Comment on above: Result Comment: Canc elled via OM: Order edited - Discontinuing original order Performed By: #### L 100.0100 ####[facility] [address] [place], [address] MCV Normal 81-99 [facility] Comment on above: Result Comment: Canc elled via OM: Order edited - Discontinuing original order Performed By: #### L 100.0100 ####[facility] [address] [place], [address] NEUT% Normal 47-70 [facility] Comment on above: Result Comment: Canc elled via OM: Order edited - Discontinuing original order Performed By: #### L 100.0100 ####[facility] [address] [place], [address] PLT Normal 150-450 [facility] Comment on above: Result Comment: Canc elled via OM: Order edited - Discontinuing original order Performed By: #### L 100.0100 ####[facility] [address] [place], [address] RBC Normal 4.2-5.4 [facility] Comment on above: Result Comment: Canc elled via OM: Order edited - Discontinuing original order Performed By: #### L 100.0100 ####[facility] [address] [place], [address] RDW CV Normal 11.6-14.6 [facility] Comment on above: Result Comment: Canc elled via OM: Order edited - Discontinuing original order Performed By: #### L 100.0100 ####[facility] [address] [place], [address] RDW SD Normal 35.1-43.9 [facility] Comment on above: Result Comment: Canc elled via OM: Order edited - Discontinuing original order Performed By: #### L 100.0100 ####[facility] [address] [place], [address] WBC Normal 4.4-11.0 [facility] Comment on above: Result Comment: Canc elled via OM: Order edited - Discontinuing original order Performed By: #### L 100.0100 ####[facility] [address] [place], [address] Modified Barium Swallow Stud yon 12-08-2024 Modified Barium Swallow Study Normal [facility] Influenza virus A and B and SARS-CoV-2 (COVID-19) and Respiratory syncytial virus RNAOrdered By: Gonzalo Sebastian on 12-07-2024 SARS-CoV-2 (COVID-19) RNA KANDY+probe Ql (Unsp spec) [facility] L503.7505on 12-07-2024 Natriuretic peptide B (Bld) [Mass/Vol] 3318 pg/mL High <=900 [facility] Comment on above: Result Comment: Hear t Failure Unlikely: < 300 pg/mLHeart Failure Likely< 50 Years: > 450 pg/mL50-75 Years: > 900 pg/mL>75 Years: > 1800 pg/mL Performed By: #### L 503.7505 ####[facility] [address] [place], [address] Laboratory - Chemistry and C hemistry - challengeOrdered By: Gonzalo Sebastian on 12-07-2024 Natriuretic peptide B (Bld) [Mass/Vol] 3318 pg/mL High <900 [facility] Comment on above: Heart Failure Unlike ly: < 300 pg/mLHeart Failure Likely< 50 Years: > 450 pg/mL50-75 Years: > 900 pg/mL>75 Years: > 1800 pg/mL M100.678on 12-07-2024 M100.678 Pending SARS-CoV-2 (COVID 19) Negative INFLUENZA A Negative INFLUENZA B Negative RSV PCR Negative Normal [facility] Comment on above: Performed By: #### M 100.678 ####[facility] [address] [place], [place], [address] No Panel InformationOrdered By: Gonzalo Sebastian on 12-07-2024 3318 pg/mL High <900 [facility] Absolute neutrophil countOrd ered By: Gonzalo Sebastian on 12-06-2024 Neutrophils (Bld) [#/Vol] 23.2 10*3/uL High 2.0-7.7 [facility] Anion gap in Serum or Plasma Ordered By: Gonzalo Sebastian on 12-06-2024 Anion gap [Moles/Vol] 13 mmol/L 5-15 [facility] Automated lymphocyte count a s percentage of total leukocytesOrdered By: Gonzalo Sebastian on 12-06-2024 Lymphocytes/100 WBC Auto (Unsp spec) 4.5 % Low 19-41 [facility] BUN/creatinine ratioOrdered By: Gonzalo Sebastian on 12-06-2024 Urea nitrogen/Creatinine [Mass ratio] 27.8 mg/mg High 10-20 [facility] Basic Metabolic Profile (BMP )on 12-06-2024 BUN/CRE 27.8 RATIO High 10-20 [facility] Comment on above: Performed By: #### L 503.7505, L500.2500, L100.0100, L509.7001 ####[facility] [address] [place], [address] Calcium [Mass/Vol] 9.3 mg/dL Normal 7.6-11.0 [facility] Comment on above: Performed By: #### L 503.7505, L500.2500, L100.0100, L509.7001 ####[facility] [address] [place], [address] Chloride [Moles/Vol] 98 mmol/L Normal 98-[address] [facility] Comment on above: Performed By: #### L 503.7505, L500.2500, L100.0100, L509.7001 ####[facility] [address] [place], [address] CO2 [Moles/Vol] 23.2 mmol/L Normal 21.0-32.0 [facility] Comment on above: Performed By: #### L 503.7505, L500.2500, L100.0100, L509.7001 ####[facility] [address] [place], [address] Creatinine [Mass/Vol] 1.57 mg/dL High 0.70-1.20 [facility] Comment on above: Performed By: #### L 503.7505, L500.2500, L100.0100, L509.7001 ####[facility] [address] [place], [address] ECRCL 31.13 ml/min Low 50-250 [facility] Comment on above: Performed By: #### L 503.7505, L500.2500, L100.0100, L509.7001 ####[facility] [address] [place], [address] GAP 13 Normal 5-15 [facility] Comment on above: Performed By: #### L 503.7505, L500.2500, L100.0100, L509.7001 ####[facility] [address] [place], [address] GFR/1.73 sq M.predicted among non-blacks MDRD (S/P/Bld) [Vol rate/Area] 37 mL/min/{1.73_m2} Low >60 [facility] Comment on above: Result Comment: mL/m in/1.73m2 CKD-EPI Creatinine Equation (2020) Performed By: #### L 503.7505, L500.2500, L100.0100, L509.7001 ####[facility] [address] [place], [address] Glucose [Mass/Vol] 166 mg/dL High 70-99 [facility] Comment on above: Performed By: #### L 503.7505, L500.2500, L100.0100, L509.7001 ####[facility] [address] [place], [address] Potassium [Moles/Vol] 4.9 mmol/L Normal 3.3-5.1 [facility] Comment on above: Performed By: #### L 503.7505, L500.2500, L100.0100, L509.7001 ####[facility] [address] [place], [address] Sodium [Moles/Vol] 134 mmol/L Normal 133-145 [facility] Comment on above: Performed By: #### L 503.7505, L500.2500, L100.0100, L509.7001 ####[facility] [address] [place], [address] Urea nitrogen [Mass/Vol] 44 mg/dL High 4-19 [facility] Comment on above: Performed By: #### L 503.7505, L500.2500, L100.0100, L509.7001 ####[facility] [address] [place], [address] Basophil percentageOrdered B y: Gonzalo Sebastian on 12-06-2024 Basophils/100 WBC (Bld) 0.2 % 0-1 [facility] Basophil percentage 0.2 % 0-1 [facility] Carbon dioxide, total [Moles /volume] in Central venous bloodOrdered By: Gonzalo Sebastian on 12-06-2024 CO2 [Moles/Vol] 23.2 mmol/L 21.0-32.0 [facility] Chloride assayOrdered By: Soares on 12-06-2024 Chloride [Moles/Vol] 98 mmol/L 98-[address] [facility] Echocardiogram study reportO rdered By: Bridgette Gaxiola on 12-06-2024 Study report [facility] [place] [address] Echo Complete 12/05/24 1413 MR#: [id number] Acct: [id number] Name: GRACIE BANUELOS Rep #:[id number] : 1965 59 From: Bridgette lopez MD Attending Dr: Dr. Yrn Kahn, DO Status: ADM IN Ordering Dr: Gonzalo Sebastian DO Date: 07/22 Location: [facility] Sex: F C Admitted: 12/04/24 Reason For Study Reason For Study: DYSPNEA Procedure This was a 2D Doppler, Color Flow transthoracic echocardiogram. Technically difficult study due to patient coughing. Exam performed portable in patient room. Left Ventricle Normal LV size. The estimated ejection fraction is 70 %. Unable to assess diastolic dysfunction. No regional wall motion abnormalities noted. Right Ventricle Normal RV size. Normal systolic function. Atria The left and right atria are normal. No doppler evidence for ASD. Mitral Valve There is severe mitral annular calcification. There is no mitral valve stenosis.Trivial mitral valve insufficiency. Tricuspid Valve There is no tricuspid stenosis. Unable to estimate RV systolic pressure due to inadequate jet, pulmonary artery pressure probably normal. Aortic Valve Trisinus/trileaflet aortic valve. Aortic sclerosis, no stenosis. No aortic valveinsufficiency. Pulmonic Valve There is no pulmonic valvular stenosis. No pulmonic valve insufficiency. Great Vessels Normal sized aortic root. Pericardium/Pleural No pericardial effusion. MMode/2D Measurements & Calculations LVIDd: 3.8 cm IVSd: 1.3 cm LVOT diam: 1.9 cm LVIDs: 1.9 cm LVPWd: 1.7 cm LVOT area: 2.8 cm2 FS: 49.7 % LAV(MOD-bp): 27.0 ml LVAd ap4: 21.8 cm2 SV(MOD-sp4): 34.2 ml LAV(MOD-bp) Indexed: 16.5 ml/m2 LVLd ap4: 7.3 cm SI(MOD-sp4): 20.8 ml/m2 LAV(MOD-sp2): 22.3 ml EDV(MOD-sp4): 54.4 ml LAV(MOD-sp4): 28.4 ml EDV(sp4-el): 55.4 ml LVAs ap4: 11.6 cm2 LVLs ap4: 5.9 cm ESV(MOD-sp4): 20.2 ml ESV(sp4-el): 19.7 ml EF(MOD-sp4): 62.9 % EF(sp4-el): 64.5 % ___ __ SV(sp4-el): 35.7 ml LA A4 area: 11.9 cm2 LA dimension(2D): 3.7 cm RA A4 area: 7.8 cm2 Time Measurements MV dec time: 0.19 sec Doppler Measurements & Calculations MV E max peg: 74.6 cm/sec Lat Peak E' Peg: 4.5 cm/sec Med Peak E' Peg: 5.9 cm/sec MV A max peg: 128.6 cm/sec E/E' lat: 16.5 E/E' med: 12.6 MV E/A: 0.58 MV V2 max: 137.7 cm/sec Ao V2 max: 151.6 cm/sec MV max P.6 mmHg MV dec slope: 385.8 cm/sec2 Ao max P.2 mmHg MV V2 mean: 81.6 cm/sec Ao V2 mean: 99.9 cm/sec MV mean P.0 mmHg Ao mean P.8 mmHg MV V2 VTI: 34.0 cm Ao V2 VTI: 22.5 cm AV (velocity ratio): 0.94 MVA(VTI): 1.8 cm2 KENYETTA(I,D): 2.7 cm2 KENYETTA(V,D): 2.5 cm2 LV V1 max: 133.6 cm/sec SV(LVOT): 59.7 ml PA V2 max: 111.5 cm/sec LV V1 max P.2 mmHg PA V2 mean: 79.9 cm/sec LV V1 mean P.4 mmHg LV V1 mean: 82.7 cm/sec LV V1 VTI: 21.1 cm ECHO/Echo Complete Interpretation Summary The estimated ejection fraction is 70 %. Unable to assess diastolic dysfunction. Trivial mitral valve insufficiency. Ordering Physician: Gonzalo Sebastian Referring Physician: ANNMARIE ELKINS Performed By: Grazyna Lazaro RCS 12/06/24 1251 Date _ Bridgette Gaxiola MD CC: Dr. Annmarie Elkins MD; Dr. Gonzalo Sebastian DO; Dr. Yrn Kahn DO ~ Date Dictated: 12/05/24 1413 Date Transcribed: 12/06/24 1251 Advanced Practice Nurse Psychotherapist: Signed [facility] Work Phone: Eosinophil percentageOrdered By: Gonzalo Sebastian on 12-06-2024 Eosinophils/100 WBC (Bld) 0.0 % 0-5 [facility] Eosinophil percentage 0.0 % 0-5 [facility] Erythrocyte distribution wid th ratioOrdered By: Gonzalo Sebastian on 12-06-2024 Erythrocyte distribution width (RBC) [Ratio] 15.3 % High 11.6-14.6 [facility] Erythrocyte distribution wid th standard deviationOrdered By: Gonzalo Sebastian on 12-06-2024 Erythrocyte distribution width (RBC) [Entitic vol] 47.7 fL High 35.1-43.9 [facility] Estimation of creatinine binu aranceOrdered By: Gonzalo Sebastian on 12-06-2024 Estimated Creatinine Clearance Calc 31.13 ml/min Low 50-250 [facility] GFR/1.73 sq M.predicted gregory g non-blacks MDRD (S/P/Bld) [Vol rate/Area]Ordered By: Gonzalo Sebastian on 12-06-2024 Estimated GFR (MDRD) Non-Af Amer 37 Low >60 [facility] Comment on above: mL/min/1.73m2 CKD-EP I Creatinine Equation (2020) Hematocrit Auto (Bld) [Volum e fraction]Ordered By: Gonzalo Sebastian on 12-06-2024 Hematocrit (Bld) [Volume fraction] 39.6 % 37-47 [facility] Hemoglobin measurementOrdere d By: Gonzalo Sebastian on 12-06-2024 Hemoglobin (Bld) [Mass/Vol] 12.6 g/dL 12.0-15.0 [facility] Immature granulocytes/100 WB C Auto (Bld)Ordered By: Gonzalo Sebastian on 12-06-2024 Immature granulocytes/100 WBC (Bld) 0.900 % 0.0-0.9 [facility] Comment on above: IG% - Immature Granu locytes (promyelocytes, myelocytes and metamyelocytes) > 1% indicates that a LEFT SHIFT is Present. Automated immature granulocyte percentage 0.900 % 0.0-0.9 [facility] L503.7505on 12-06-2024 Natriuretic peptide B (Bld) [Mass/Vol] 2014 pg/mL High <=900 [facility] Comment on above: Result Comment: Hear t Failure Unlikely: < 300 pg/mLHeart Failure Likely< 50 Years: > 450 pg/mL50-75 Years: > 900 pg/mL>75 Years: > 1800 pg/mL Performed By: #### L 503.7505, L500.2500, L100.0100, L509.7001 ####[facility] [address] [place], [address] L509.7001on 12-06-2024 Procalcitonin 0.31 ng/mL High <=0.10 [facility] Comment on above: Result Comment: Inte rpretation:<0.10-0.25 ng/mL: Antibiotic therapy discouraged. Bacterialinfection unlikely.0.25-0.50 ng/mL: Antibiotic therapy encouraged. Bacterialinfection possible.>0.50 ng/mL: Antibiotic therapy strongly encouraged.Suggestive of presence of bacterial infection.PCT should always be interpreted in the clinical context ofthe patient. Therefore, clinicians should use the PCTresults in conjunction with other laboratory findings andclinical signs of the patient. Performed By: #### L 503.7505, L500.2500, L100.0100, L509.7001 ####[facility] [address] [place], [address] Lymphocytes Auto (Unsp spec) [#/Vol]Ordered By: Gonzalo Sebastian on 12-06-2024 Lymphocytes (Bld) [#/Vol] 1.17 10*3/uL 0.83-4.51 [facility] Lymphocytes/100 WBC Auto (Un sp spec)Ordered By: Gonzalo Sebastian on 12-06-2024 Lymphocytes/100 WBC (Bld) 4.5 % Low 19-41 [facility] Automated lymphocyte count as percentage of total leukocytes 4.5 % Low 19-41 [facility] MCV (mean corpuscular volume ) determinationOrdered By: Gonzalo Sebastian on 12-06-2024 MCV (RBC) [Entitic vol] 85.7 fL 81-99 [facility] Mean corpuscular hemoglobin (MCH) determinationOrdered By: Gonzalo Sebastian on 12-06-2024 MCH (RBC) [Entitic mass] 27.3 pg 27.0-32.0 [facility] Mean corpuscular hemoglobin concentration (MCHC) determinationOrdered By: Gonzalo Sebastian on 12-06-2024 MCHC (RBC) [Mass/Vol] 31.8 g/dL Low 32-36 [facility] Mean platelet volume determi nationOrdered By: Gonzalo Sebastian on 12-06-2024 Platelet mean volume (Bld) [Entitic vol] 10.5 fL 6.2-12.0 [facility] Monocyte percentageOrdered B y: Gonzalo Sebastian on 12-06-2024 Monocytes/100 WBC (Bld) 6.0 % 0-10 [facility] Monocyte percentage 6.0 % 0-10 [facility] Neutrophil percentageOrdered By: Gonzalo Sebastian on 12-06-2024 Neutrophils/100 WBC (Bld) 88.4 % High 47-70 [facility] No Panel InformationOrdered By: Gonzalo Sebastian on 12-06-2024 Procalcitonin 0.31 ng/mL High <0.11 [facility] Comment on above: Interpretation:<0.10 -0.25 ng/mL: Antibiotic therapy discouraged. Bacterial infection unlikely.0.25-0.50 ng/mL: Antibiotic therapy encouraged. Bacterial infection possible.>0.50 ng/mL: Antibiotic therapy strongly encouraged. Suggestive of presence of bacterial infection.PCT should always be interpreted in the clinical context of the patient. Therefore, clinicians should use the PCT results in conjunction with other laboratory findings and clinical signs of the patient. 0.31 ng/mL High <0.11 [facility] Nucleated red blood cell per centageOrdered By: Gonzalo Sebastian on 12-06-2024 Nucleated RBC/100 WBC (Bld) [Ratio] 0 % 0-5 [facility] Nucleated red blood cell percentage 0 % 0-5 [facility] Pathologist review Geovany (Unsp spec) [Interp]Ordered By: Gonzalo Sebastian on 12-06-2024 Differential Pathologist's Review May [facility] Platelet countOrdered By: Soares on 12-06-2024 Platelets (Bld) [#/Vol] 260 10*3/uL 150-450 [facility] Platelets LM Ql (Bld)Ordered By: Gonzalo Sebastian on 12-06-2024 Platelet Estimate A ADEQ [facility] Potassium (Unsp spec) [Mass/ Vol]Ordered By: Gonzalo Sebastian on 12-06-2024 Potassium [Moles/Vol] 4.9 mmol/L 3.3-5.1 [facility] RBC Auto (Bld) [#/Vol]Ordere d By: Gonzalo Sebastian on 12-06-2024 RBC (Bld) [#/Vol] 4.62 10*6/uL 4.2-5.4 [facility] Serum creatinine measurement (mass/volume)Ordered By: Gonzalo Sebastian on 12-06-2024 Creatinine [Mass/Vol] 1.57 mg/dL High 0.70-1.20 [facility] Serum glucose measurement (m ass/volume)Ordered By: Gonzalo Sebastian on 12-06-2024 Glucose [Mass/Vol] 166 mg/dL High 70-99 [facility] Serum or plasma calcium esthela urement (mass/volume)Ordered By: Gonzalo Sebastian on 12-06-2024 Calcium [Mass/Vol] 9.3 mg/dL 7.6-11.0 [facility] Serum or plasma urea nitroge n measurement (mass/volume)Ordered By: Gonzalo Sebastian on 12-06-2024 Urea nitrogen [Mass/Vol] 44 mg/dL High 4-19 [facility] Sodium levelOrdered By: Matt Sebastian on 12-06-2024 Sodium [Moles/Vol] 134 mmol/L 133-145 [facility] White blood cell (WBC) count Ordered By: Gonzalo Sebastian on 12-06-2024 WBC (Bld) [#/Vol] 26.2 10*3/uL High 4.4-11.0 [facility] ALP [Catalytic activity/Vol] Ordered By: Aleta Aguayo on 12-05-2024 Serum or plasma alkaline phosphatase measurement 149 U/L High 35-104 [facility] ALT [Catalytic activity/Vol] Ordered By: Aleta Aguayo on 12-05-2024 Serum or plasma alanine aminotransferase (ALT) measurement 39 U/L High <35 [facility] Albumin [Mass/Vol]Ordered By : Aleta Aguayo on 12-05-2024 Serum or plasma albumin measurement (mass/volume) 3.8 g/dL 3.4-4.8 [facility] Albumin/Globulin [Mass ratio ]Ordered By: Aleta Aguayo on 12-05-2024 Serum or plasma albumin/globulin mass ratio 1.2 RATIO 0.9-2.4 [facility] Arterial patency Wrist arter y --pre arterial punctureOrdered By: Yrn Kahn on 12-05-2024 Sergei Test Positive [facility] Assessment of wrist artery patency prior to arterial puncture Positive [facility] Assessment of wrist artery p atency prior to arterial punctureOrdered By: Yrn Kahn on 12-05-2024 Arterial patency Wrist artery --pre arterial puncture Positive [facility] Base excess Calc (BldV) [Mol es/Vol]Ordered By: Yrn Kahn on 12-05-2024 Blood Gas Base Excess -1 mmol/L -2-2 [facility] Blood base excess determination -1 mmol/L -2-2 [facility] Bilirubin, totalOrdered By: Aleta Aguayo on 12-05-2024 Bilirubin [Mass/Vol] 0.18 mg/dL 0.00-1.[address] [facility] Bilirubin, total 0.18 mg/dL 0.00-1.30 [facility] Base excess Calc (Bld) [Moles/Vol] -1 mmol/L Normal -2 to +2 [facility] Comment on above: Performed By: #### L 9000.0800 ####[facility] [address] [place], [address] Blood Gas Type ART Normal [facility] Comment on above: Performed By: #### L 0.0800 ####[facility] [address] [place], [address] CO2 [Moles/Vol] 28 mmol/L Normal [facility] Comment on above: Performed By: #### L 9000.0800 ####[facility] [address] [place], [address] Comment 60 75 Normal [facility] Comment on above: Performed By: #### L 9000.0800 ####[facility] [address] [place], [address] HCO3 (Bld) [Moles/Vol] 26.4 mmol/L High 22-26 [facility] Comment on above: Performed By: #### L 9000.0800 ####[facility] [address] [place], [address] Mode Not entered [facility] Comment on above: Performed By: #### L 9000.0800 ####[facility] [address] [place], [address] O2 Delivery Dev Not entered [facility] Comment on above: Performed By: #### L 9000.0800 ####[facility] [address] [place], [address] pCO2 61.0 mmHg High 35-45 [facility] Comment on above: Performed By: #### L 0.0800 ####[facility] [address] [place], [address] pH (Bld) 7.24 [pH] Low 7.35-7.45 [facility] Comment on above: Performed By: #### L 8999.0800 ####[facility] [address] [place], [address] PO2 68 mmHG Low 75-100 [facility] Comment on above: Performed By: #### L 8999.0800 ####[facility] [address] [place], [address] SITE R Radial Normal [facility] Comment on above: Performed By: #### L 8999.0800 ####[facility] [address] [place], [address] SO2 89 Low 95-99 [facility] Comment on above: Performed By: #### L 8999.0800 ####[facility] [address] [place], [address] SERGEI TEST Positive Normal [facility] Comment on above: Performed By: #### L 8999.0800 ####[facility] [address] [place], [address] Base excess Calc (Bld) [Moles/Vol] -3 mmol/L Low -2 to +2 [facility] Comment on above: Performed By: #### L 8999.0800 ####[facility] [address] [place], [address] Blood Gas Type ART Normal [facility] Comment on above: Performed By: #### L 8999.0800 ####[facility] [address] [place], [address] CO2 [Moles/Vol] 25 mmol/L Normal [facility] Comment on above: Performed By: #### L 8999.0800 ####[facility] [address] [place], [address] Comment 425 Normal [facility] Comment on above: Performed By: #### L 9000.0800 ####[facility] [address] [place], [address] FI02 45.0 Normal [facility] Comment on above: Performed By: #### L 9000.0800 ####[facility] [address] [place], [address] HCO3 (Bld) [Moles/Vol] 23.8 mmol/L Normal 22-26 [facility] Comment on above: Performed By: #### L 9000.0800 ####[facility] [address] [place], [address] Mode Not entered Normal [facility] Comment on above: Performed By: #### L 9000.0800 ####[facility] [address] [place], [address] O2 Delivery Dev BiPAP Normal [facility] Comment on above: Performed By: #### L 9000.0800 ####[facility] [address] [place], [address] pCO2 51.6 mmHg High 35-45 [facility] Comment on above: Performed By: #### L 9000.0800 ####[facility] [address] [place], [address] pH (Bld) 7.27 [pH] Low 7.35-7.45 [facility] Comment on above: Performed By: #### L 9000.0800 ####[facility] [address] [place], [address] PO2 57 mmHG Low 75-100 [facility] Comment on above: Performed By: #### L 9000.0800 ####[facility] [address] [place], [address] RR 14 Normal [facility] Comment on above: Performed By: #### L 9000.0800 ####[facility] [address] [place], [address] SITE R Radial Normal [facility] Comment on above: Performed By: #### L 9000.0800 ####[facility] [address] [place], [address] SO2 85 Low 95-99 [facility] Comment on above: Performed By: #### L 9000.0800 ####[facility] [address] [place], [address] Blood base excess determinat ionOrdered By: Yrn Kahn on 12-05-2024 Base excess Calc (BldV) [Moles/Vol] -1 mmol/L -2-2 [facility] Blood bicarbonate measuremen tOrdered By: Yrn Kahn on 12-05-2024 Blood Gas Bicarbonate Actual 26.4 mmol/L High - [facility] HCO3 (Bld) [Moles/Vol] 26.4 mmol/L High - [facility] Blood bicarbonate measurement 26.4 mmol/L High 22-26 [facility] CBC W/Diff, Automatedon 11-26 Absolute Lymph 0.86 X10 3/uL Normal 0.83-4.51 [facility] Comment on above: Performed By: #### L 500.4050, L100.0100, L501.2300, L501.5200 ####[facility] [address] [place], [address] Absolute Neut 15.1 X10 3/uL High 2.0-7.7 [facility] Comment on above: Performed By: #### L 500.4050, L100.0100, L501.2300, L501.5200 ####[facility] [address] [place], [address] Basophils/100 WBC (Bld) 0.4 % Normal 0-1 [facility] Comment on above: Performed By: #### L 500.4050, L100.0100, L501.2300, L501.5200 ####[facility] [address] [place], [address] Eosinophils/100 WBC (Bld) 0.1 % Normal 0-5 [facility] Comment on above: Performed By: #### L 500.4050, L100.0100, L501.2300, L501.5200 ####[facility] [address] [place], [address] Erythrocyte distribution width (RBC) [Ratio] 14.9 % High 11.6-14.6 [facility] Comment on above: Performed By: #### L 500.4050, L100.0100, L501.2300, L501.5200 ####[facility] [address] [place], [address] Hematocrit (Bld) [Volume fraction] 39.2 % Normal 37-47 [facility] Comment on above: Performed By: #### L 500.4050, L100.0100, L501.2300, L501.5200 ####[facility] [address] [place], [address] Hemoglobin (Bld) [Mass/Vol] 12.2 g/dL Normal 12.0-15.0 [facility] Comment on above: Performed By: #### L 500.4050, L100.0100, L501.2300, L501.5200 ####[facility] [address] [place], [address] IG% 1.400 High 0.0-0.9 [facility] Comment on above: Result Comment: IG% - Immature Granulocytes (promyelocytes, myelocytes andmetamyelocytes) > 1% indicates that a LEFT SHIFT is Present. Performed By: #### L 500.4050, L100.0100, L501.2300, L501.5200 ####[facility] [address] [place], [address] Lymphocytes/100 WBC (Bld) 5.1 % Low 19-41 [facility] Comment on above: Performed By: #### L 500.4050, L100.0100, L501.2300, L501.5200 ####[facility] [address] [place], [address] MCH (RBC) [Entitic mass] 26.5 pg Low 27.0-32.0 [facility] Comment on above: Performed By: #### L 500.4050, L100.0100, L501.2300, L501.5200 ####[facility] [address] [place], [address] MCHC (RBC) [Mass/Vol] 31.1 g/dL Low 32-36 [facility] Comment on above: Performed By: #### L 500.4050, L100.0100, L501.2300, L501.5200 ####[facility] [address] [place], [address] MCV (RBC) [Entitic vol] 85.0 fL Normal 81-99 [facility] Comment on above: Performed By: #### L 500.4050, L100.0100, L501.2300, L501.5200 ####[facility] [address] [place], [address] Monocytes/100 WBC (Bld) 4.0 % Normal 0-10 [facility] Comment on above: Performed By: #### L 500.4050, L100.0100, L501.2300, L501.5200 ####[facility] [address] [place], [address] Neutrophils/100 WBC (Bld) 89.0 % High 47-70 [facility] Comment on above: Performed By: #### L 500.4050, L100.0100, L501.2300, L501.5200 ####[facility] [address] [place], [address] Nucleated RBC (Bld) [#/Vol] 0 10*3/uL Normal 0-5 [facility] Comment on above: Performed By: #### L 500.4050, L100.0100, L501.2300, L501.5200 ####[facility] [address] [place], [address] Platelet mean volume (Bld) [Entitic vol] 10.9 fL Normal 6.2-12.0 [facility] Comment on above: Performed By: #### L 500.4050, L100.0100, L501.2300, L501.5200 ####[facility] [address] [place], [address] Platelets (Bld) [#/Vol] 250 10*3/uL Normal 150-450 [facility] Comment on above: Performed By: #### L 500.4050, L100.0100, L501.2300, L501.5200 ####[facility] [address] [place], [address] RBC (Bld) [#/Vol] 4.61 10*6/uL Normal 4.2-5.4 [facility] Comment on above: Performed By: #### L 500.4050, L100.0100, L501.2300, L501.5200 ####[facility] [address] [place], [address] RDW SD 46.7 fl High 35.1-43.9 [facility] Comment on above: Performed By: #### L 500.4050, L100.0100, L501.2300, L501.5200 ####[facility] [address] [place], [address] WBC (Bld) [#/Vol] 16.9 10*3/uL High 4.4-11.0 [facility] Comment on above: Performed By: #### L 500.4050, L100.0100, L501.2300, L501.5200 ####[facility] [address] [place], [address] Comprehensive Metabolic Prof ilon 12-05-2024 Albumin [Mass/Vol] 3.8 g/dL Normal 3.4-4.8 [facility] Comment on above: Performed By: #### L 500.4050, L100.0100, L501.2300, L501.5200 ####[facility] [address] [place], [address] Albumin/Globulin [Mass ratio] 1.2 {ratio} Normal 0.9-2.4 [facility] Comment on above: Performed By: #### L 500.4050, L100.0100, L501.2300, L501.5200 ####[facility] [address] [place], [address] ALK PHOS 149 U/L High 35-104 [facility] Comment on above: Performed By: #### L 500.4050, L100.0100, L501.2300, L501.5200 ####[facility] [address] [place], [address] ALT [Catalytic activity/Vol] 39 U/L High <=34 [facility] Comment on above: Performed By: #### L 500.4050, L100.0100, L501.2300, L501.5200 ####[facility] [address] [place], [address] AST [Catalytic activity/Vol] 62 U/L High <=31 [facility] Comment on above: Performed By: #### L 500.4050, L100.0100, L501.2300, L501.5200 ####[facility] [address] [place], [address] Bilirubin [Mass/Vol] 0.18 mg/dL Normal 0.00-1.[address] [facility] Comment on above: Performed By: #### L 500.4050, L100.0100, L501.2300, L501.5200 ####[facility] [address] [place], [address] BUN/CRE 14.0 RATIO Normal 10-20 [facility] Comment on above: Performed By: #### L 500.4050, L100.0100, L501.2300, L501.5200 ####[facility] [address] [place], [address] Calcium [Mass/Vol] 6.7 mg/dL Low 7.6-11.0 [facility] Comment on above: Performed By: #### L 500.4050, L100.0100, L501.2300, L501.5200 ####[facility] [address] [place], [address] Chloride [Moles/Vol] 97 mmol/L Low 98-[address] [facility] Comment on above: Performed By: #### L 500.4050, L100.0100, L501.2300, L501.5200 ####[facility] [address] [place], [address] CO2 [Moles/Vol] 21.0 mmol/L Normal 21.0-32.0 [facility] Comment on above: Performed By: #### L 500.4050, L100.0100, L501.2300, L501.5200 ####[facility] [address] [place], [address] Creatinine [Mass/Vol] 1.37 mg/dL High 0.70-1.20 [facility] Comment on above: Performed By: #### L 500.4050, L100.0100, L501.2300, L501.5200 ####[facility] [address] [place], [address] ECRCL 35.67 ml/min Low 50-250 [facility] Comment on above: Performed By: #### L 500.4050, L100.0100, L501.2300, L501.5200 ####[facility] [address] [place], [address] GAP 16 High 5-15 [facility] [facility] Comment on above: Performed By: #### L 500.4050, L100.0100, L501.2300, L501.5200 ####[facility] [address] [place], [address] GFR/1.73 sq M.predicted among non-blacks MDRD (S/P/Bld) [Vol rate/Area] 44 mL/min/{1.73_m2} Low >60 [facility] Comment on above: Result Comment: mL/m in/1.73m2 CKD-EPI Creatinine Equation (2020) Performed By: #### L 500.4050, L100.0100, L501.2300, L501.5200 ####[facility] [address] [place], [address] Globulin (S) [Mass/Vol] 3.2 g/dL Normal 2.2-4.2 [facility] Comment on above: Performed By: #### L 500.4050, L100.0100, L501.2300, L501.5200 ####[facility] [address] [place], [address] Glucose [Mass/Vol] 144 mg/dL High 70-99 [facility] Comment on above: Performed By: #### L 500.4050, L100.0100, L501.2300, L501.5200 ####[facility] [address] [place], [address] Potassium [Moles/Vol] 4.8 mmol/L Normal 3.3-5.1 [facility] Comment on above: Performed By: #### L 500.4050, L100.0100, L501.2300, L501.5200 ####[facility] [address] [place], [address] Sodium [Moles/Vol] 134 mmol/L Normal 133-145 [facility] Comment on above: Performed By: #### L 500.4050, L100.0100, L501.2300, L501.5200 ####[facility] [address] [place], [address] T PROT 7.0 g/dL Normal 5.9-8.4 [facility] Comment on above: Performed By: #### L 500.4050, L100.0100, L501.2300, L501.5200 ####[facility] [address] [place], [address] Urea nitrogen [Mass/Vol] 19 mg/dL Normal 4-19 [facility] Comment on above: Performed By: #### L 500.4050, L100.0100, L501.2300, L501.5200 ####[facility] [address] [place], [address] Consultation - Intensiviston 12-05-2024 Consultation - Salon Leader Normal [facility] Determination of fraction of inspired oxygenOrdered By: Yrn Kahn on 12-05-2024 Blood Gas Oxygen Percent 45.0 [facility] Determination of fraction of inspired oxygen 45.0 [facility] Echo Completeon 12-05-2024 Echo Complete Normal [facility] Electrocardiogram reportOrde red By: Nima Cotter on 12-05-2024 EKG study [facility] [address] [place] [address] 12 Lead EKG 12/04/24 1614 MR#: [id number] Acct: [id number] Name: GRACIE BANUELOS Rep #:[id number] : 1965 59 From: Nima gomez MD Attending Dr: Dr. Yrn Kahn DO Status: ADM IN Ordering Dr: Franco Inman MD Date: 06/22 Location: [facility] Sex: F C Admitted: 12/04/24 Test Reason : SOB Blood Pressure : */* mmHG Vent. Rate : 121 BPM Atrial Rate : 121 BPM P-R Int : 160 ms QRS Dur : 78 ms QT Int : 328 ms P-R-T Axes : 85 90 86 degrees QTcB Int : 465 ms Sinus tachycardia Rightward axis Septal infarct , age undetermined Abnormal ECG baseline artifact Confirmed by Nima Cotter ([id number]), web content editor LEONARD BAUTISTA ([id number]) on 12/05/2024 10:48:28 AM Referred By: Confirmed By: Nima Cotter 12/05/24 1048 Date _ Nima Cotter MD CC: Dr. Annmarie Elkins MD; Dr. Franco Inman MD; Dr. Yrn Kahn DO ~ Signed [facility] Other Phone: Laboratory - Chemistry and C hemistry - challengeOrdered By: Aleta Aguayo on 12-05-2024 AST [Catalytic activity/Vol] 62 U/L High <32 [facility] Magnesiumon 12-05-2024 Magnesium [Mass/Vol] 2.0 mg/dL Normal 1.5-2.[address] [facility] Comment on above: Performed By: #### L 500.4050, L100.0100, L501.2300, L501.5200 ####[facility] [address] [place], [address] Magnesium (Unsp spec) [Mass/ Vol]Ordered By: Aleta Aguayo on 12-05-2024 Magnesium [Mass/Vol] 2.0 mg/dL 1.5-2.[address] [facility] Magnesium measurement (mass/volume) 2.0 mg/dL 1.5-2.2 [facility] Magnesium measurement (mass/ volume)Ordered By: Aleta Aguayo on 12-05-2024 Magnesium (Unsp spec) [Mass/Vol] 2.0 mg/dL 1.5-2.2 [facility] Measurement, pHOrdered By: Mike Kahn on 12-05-2024 pH (Unsp spec) 7.24 [pH] Low 7.35-7.45 [facility] No Panel InformationOrdered By: Yrn Kahn on 12-05-2024 Blood Gas Clinical Comments 60 75 [facility] Blood Gas Sample Site R Radial [facility] Blood Gas Specimen Type ART [facility] Blood Gas Vent Mode Not entered [facility] Oxygen Delivery Device Not entered [facility] R Radial [facility] Not entered [facility] 60 75 [facility] Blood Gas Respiration Rate 14 [facility] 14 [facility] No Panel InformationOrdered By: Aleta Aguayo on 12-05-2024 62 U/L High <32 [facility] Oxygen saturation measuremen tOrdered By: Yrn Kahn on 12-05-2024 Blood Gas Oxygen Saturation 89 % Low 95-99 [facility] Oxygen saturation measurement 89 % Low 95-99 [facility] Partial pressure of carbon d ioxide measurementOrdered By: Yrn Kahn on 12-05-2024 Arterial Blood Partial Pressure CO2 61.0 mmHg High 35-45 [facility] Partial pressure of carbon dioxide measurement 61.0 mmHg High 35-45 [facility] Partial pressure of oxygen m easurementOrdered By: Yrn Kahn on 12-05-2024 Arterial Blood Partial Pressure O2 68 mmHG Low 75-100 [facility] Partial pressure of oxygen measurement 68 mmHG Low 75-100 [facility] Phosphoruson 12-05-2024 Phosphate [Mass/Vol] 6.2 mg/dL High 2.7-4.[address] [facility] Comment on above: Performed By: #### L 500.4050, L100.0100, L501.2300, L501.4230 ####[facility] [address] [place], [address] RESPIRATORY PANEL MOLECULARo n 12-05-2024 RP PANEL Normal [facility] Comment on above: Performed By: #### M 100.638 ####[facility] [address] [place], [address] Serum globulin measurementOr dered By: Aleta Aguayo on 12-05-2024 Globulin (S) [Mass/Vol] 3.2 g/dL 2.2-4.2 [facility] Serum globulin measurement 3.2 g/dL 2.2-4.2 [facility] Serum or plasma alanine pimentel otransferase (ALT) measurementOrdered By: Aleta Aguayo on 12-05-2024 ALT [Catalytic activity/Vol] 39 U/L High <35 [facility] Serum or plasma albumin esthela urement (mass/volume)Ordered By: Aleta Aguayo on 12-05-2024 Albumin [Mass/Vol] 3.8 g/dL 3.4-4.8 [facility] Serum or plasma albumin/glob ulin mass ratioOrdered By: Aleta Aguayo on 12-05-2024 Albumin/Globulin [Mass ratio] 1.2 {ratio} 0.9-2.4 [facility] Serum or plasma alkaline jose sphatase measurementOrdered By: Aleta Aguayo on 12-05-2024 ALP [Catalytic activity/Vol] 149 U/L High 35-104 [facility] Serum phosphorus measurement Ordered By: Aleta Aguayo on 12-05-2024 Phosphorus Level 6.2 mg/dL High 2.7-4.5 [facility] Serum phosphorus measurement 6.2 mg/dL High 2.7-4.5 [facility] Total carbon dioxide measure mentOrdered By: Yrn Kahn on 12-05-2024 Blood Gas Total CO2 28 mmol/L [facility] CO2 [Moles/Vol] 28 mmol/L [facility] Total carbon dioxide measurement 28 mmol/L [facility] Total proteinOrdered By: Lilibeth Aguayo on 12-05-2024 Protein [Mass/Vol] 7.0 g/dL 5.9-8.4 [facility] Total protein 7.0 g/dL 5.9-8.4 [facility] pH (Unsp spec)Ordered By: Cherelle Kahn on 12-05-2024 Blood Gas pH 7.24 Low 7.35-7.45 [facility] Measurement, pH 7.24 Low 7.35-7.45 [facility] 12 Lead EKGon 12-04-2024 12 Lead EKG Normal [facility] Absolute neutrophil countOrd ered By: Franco Inman on 12-04-2024 Neutrophils (Bld) [#/Vol] 11.4 10*3/uL High 2.0-7.7 [facility] Anion gap in Serum or Plasma Ordered By: Franco Inman on 12-04-2024 Anion gap [Moles/Vol] 13 mmol/L 5- [facility] Assessment of wrist artery p atency prior to arterial punctureOrdered By: Aleta Aguayo on 12-04-2024 Sergei Test Positive Normal [facility] Comment on above: Performed By: #### L 9000.0800 ####[facility] [address] [place], [address] BUN/creatinine ratioOrdered By: Franco Inman on 12-04-2024 Urea nitrogen/Creatinine [Mass ratio] 10.4 mg/mg 07-17 [facility] Base excess Calc (BldV) [Mol es/Vol]Ordered By: Aleta Aguayo on 12-04-2024 Blood Gas Base Excess 1 mmol/L -2-2 [facility] Basic Metabolic Profile (BMP )on 12-04-2024 BUN/CRE 10.4 RATIO Normal 07-17 [facility] Comment on above: Performed By: #### L 100.0100, L500.2500 ####[facility] [address] [place], [address] Calcium [Mass/Vol] 9.2 mg/dL Normal 7.6-11.0 [facility] Comment on above: Performed By: #### L 100.0100, L500.2500 ####[facility] [address] [place], [address] Chloride [Moles/Vol] 99 mmol/L Normal 98-[address] [facility] Comment on above: Performed By: #### L 100.0100, L500.2500 ####[facility] [address] [place], [address] CO2 [Moles/Vol] 24.6 mmol/L Normal 21.0-32.0 [facility] Comment on above: Performed By: #### L 100.0100, L500.2500 ####[facility] [address] [place], [address] Creatinine [Mass/Vol] 0.92 mg/dL Normal 0.70-1.20 [facility] Comment on above: Performed By: #### L 100.0100, L500.2500 ####[facility] [address] [place], [address] ECRCL 53.12 ml/min Normal 50-250 [facility] Comment on above: Performed By: #### L 100.0100, L500.2500 ####[facility] [address] [place], [address] GAP 13 Normal 5-15 [facility] Comment on above: Performed By: #### L 100.0100, L500.2500 ####[facility] [address] [place], [address] GFR/1.73 sq M.predicted among non-blacks MDRD (S/P/Bld) [Vol rate/Area] 71 mL/min/{1.73_m2} Normal >60 [facility] Comment on above: Result Comment: mL/m in/1.73m2 CKD-EPI Creatinine Equation (2020) Performed By: #### L 100.0100, L500.2500 ####[facility] [address] [place], [address] Glucose [Mass/Vol] 118 mg/dL High 70-99 [facility] Comment on above: Performed By: #### L 100.0100, L500.2500 ####[facility] [address] [place], [address] Potassium [Moles/Vol] 4.2 mmol/L Normal 3.3-5.1 [facility] Comment on above: Performed By: #### L 100.0100, L500.2500 ####[facility] [address] [place], [address] Sodium [Moles/Vol] 137 mmol/L Normal 133-145 [facility] Comment on above: Performed By: #### L 100.0100, L500.2500 ####[facility] [address] [place], [address] Urea nitrogen [Mass/Vol] 10 mg/dL Normal 4-19 [facility] Comment on above: Performed By: #### L 100.0100, L500.2500 ####[facility] [address] [place], [address] Basophil percentageOrdered B y: Franco Inman on 12-04-2024 Basophils/100 WBC (Bld) 0.9 % 0-1 [facility] Blood Gases by CPSon 025 Base excess Calc (Bld) [Moles/Vol] 1 mmol/L Normal -2 to +2 [facility] Comment on above: Performed By: #### L 9000.0800 ####[facility] [address] [place], [address] Blood Gas Type ART Normal [facility] Comment on above: Performed By: #### L 9000.0800 ####[facility] [address] [place], [address] CO2 [Moles/Vol] 30 mmol/L Normal [facility] Comment on above: Performed By: #### L 9000.0800 ####[facility] [address] [place], [address] FI02 5.0 Normal [facility] Comment on above: Performed By: #### L 0.0800 ####[facility] [address] [place], [address] HCO3 (Bld) [Moles/Vol] 28.1 mmol/L High 22-26 [facility] Comment on above: Performed By: #### L 0.0800 ####[facility] [address] [place], [address] Mode Not entered Normal [facility] Comment on above: Performed By: #### L 0.0800 ####[facility] [address] [place], [address] O2 Delivery Dev Cannula Normal [facility] Comment on above: Performed By: #### L 0.0800 ####[facility] [address] [place], [address] pCO2 65.4 mmHg High 35-45 [facility] Comment on above: Performed By: #### L 9000.0800 ####[facility] [address] [place], [address] pH (Bld) 7.24 [pH] Low 7.35-7.45 [facility] Comment on above: Performed By: #### L 0.0800 ####[facility] [address] [place], [address] PO2 68 mmHG Low 75-100 [facility] Comment on above: Performed By: #### L 0.0800 ####[facility] [address] [place], [address] SITE R Radial Normal [facility] Comment on above: Performed By: #### L 0.0800 ####[facility] [address] [place], [address] SO2 89 Low 95-99 [facility] Comment on above: Performed By: #### L 9000.0800 ####[facility] [address] [place], [address] Blood bicarbonate measuremen tOrdered By: Aleta Aguayo on 12-04-2024 Blood Gas Bicarbonate Actual 28.1 mmol/L High 22-26 [facility] CBC W/Diff, Automatedon 03-0 Absolute Lymph 0.96 X10 3/uL Normal 0.83-4.51 [facility] Comment on above: Performed By: #### L 100.0100, L500.2500 ####[facility] [address] [place], [address] Absolute Neut 11.4 X10 3/uL High 2.0-7.7 [facility] Comment on above: Performed By: #### L 100.0100, L500.2500 ####[facility] [address] [place], [address] Basophils/100 WBC (Bld) 0.9 % Normal 0-1 [facility] Comment on above: Performed By: #### L 100.0100, L500.2500 ####[facility] [address] [place], [address] Eosinophils/100 WBC (Bld) 0.6 % Normal 0-5 [facility] Comment on above: Performed By: #### L 100.0100, L500.2500 ####[facility] [address] [place], [address] Erythrocyte distribution width (RBC) [Ratio] 14.7 % High 11.6-14.6 [facility] Comment on above: Performed By: #### L 100.0100, L500.2500 ####[facility] [address] [place], [address] Hematocrit (Bld) [Volume fraction] 43.7 % Normal 37-47 [facility] Comment on above: Performed By: #### L 100.0100, L500.2500 ####[facility] [address] [place], [address] Hemoglobin (Bld) [Mass/Vol] 14.1 g/dL Normal 12.0-15.0 [facility] Comment on above: Performed By: #### L 100.0100, L500.2500 ####[facility] [address] [place], [address] IG% 0.800 Normal 0.0-0.9 [facility] Comment on above: Result Comment: IG% - Immature Granulocytes (promyelocytes, myelocytes andmetamyelocytes) > 1% indicates that a LEFT SHIFT is Present. Performed By: #### L 100.0100, L500.2500 ####[facility] [address] [place], [address] Lymphocytes/100 WBC (Bld) 6.8 % Low 19-41 [facility] Comment on above: Performed By: #### L 100.0100, L500.2500 ####[facility] [address] [place], [address] MCH (RBC) [Entitic mass] 26.9 pg Low 27.0-32.0 [facility] Comment on above: Performed By: #### L 100.0100, L500.2500 ####[facility] [address] [place], [address] MCHC (RBC) [Mass/Vol] 32.3 g/dL Normal 32-36 [facility] Comment on above: Performed By: #### L 100.0100, L500.2500 ####[facility] [address] [place], [address] MCV (RBC) [Entitic vol] 83.4 fL Normal 81-99 [facility] Comment on above: Performed By: #### L 100.0100, L500.2500 ####[facility] [address] [place], [address] Monocytes/100 WBC (Bld) 10.4 % High 0-10 [facility] Comment on above: Performed By: #### L 100.0100, L500.2500 ####[facility] [address] [place], [address] Neutrophils/100 WBC (Bld) 80.5 % High 47-70 [facility] Comment on above: Performed By: #### L 100.0100, L500.2500 ####[facility] [address] [place], [address] Nucleated RBC (Bld) [#/Vol] 0 10*3/uL Normal 0-5 [facility] Comment on above: Performed By: #### L 100.0100, L500.2500 ####[facility] [address] [place], [address] Platelet mean volume (Bld) [Entitic vol] 10.2 fL Normal 6.2-12.0 [facility] Comment on above: Performed By: #### L 100.0100, L500.2500 ####[facility] [address] [place], [address] Platelets (Bld) [#/Vol] 271 10*3/uL Normal 150-450 [facility] Comment on above: Performed By: #### L 100.0100, L500.2500 ####[facility] [address] [place], [address] RBC (Bld) [#/Vol] 5.24 10*6/uL Normal 4.2-5.4 [facility] Comment on above: Performed By: #### L 100.0100, L500.2500 ####[facility] [address] [place], [address] RDW SD 44.6 fl High 35.1-43.9 [facility] Comment on above: Performed By: #### L 100.0100, L500.2500 ####[facility] [address] [place], [address] WBC (Bld) [#/Vol] 14.1 10*3/uL High 4.4-11.0 [facility] Comment on above: Performed By: #### L 100.0100, L500.2500 ####[facility] [address] [place], [address] CTA Chest W/WO Contraston CTA Chest W/WO Contrast Normal [facility] Carbon dioxide, total [Moles /volume] in Central venous bloodOrdered By: Franco Inman on 12-04-2024 CO2 [Moles/Vol] 24.6 mmol/L 21.0-32.0 [facility] Chest PA and Lateralon 12-04 Chest PA and Lateral Normal [facility] Chloride assayOrdered By: Leo Inman on 12-04-2024 Chloride [Moles/Vol] 99 mmol/L 98-[address] [facility] Determination of fraction of inspired oxygenOrdered By: Aleta Aguayo on 12-04-2024 Blood Gas Oxygen Percent 5.0 [facility] Emergency Department Summary on 12-04-2024 Emergency Department Summary Normal [facility] Eosinophil percentageOrdered By: Franco Inman on 12-04-2024 Eosinophils/100 WBC (Bld) 0.6 % 0-5 [facility] Erythrocyte distribution wid th ratioOrdered By: Franco Inman on 12-04-2024 Erythrocyte distribution width (RBC) [Ratio] 14.7 % High 11.6-14.6 [facility] Erythrocyte distribution wid th standard deviationOrdered By: Franco Inman on 12-04-2024 Erythrocyte distribution width (RBC) [Entitic vol] 44.6 fL High 35.1-43.9 [facility] Estimation of creatinine binu aranceOrdered By: Franco Inman on 12-04-2024 Estimated Creatinine Clearance Calc 53.12 ml/min 50-250 [facility] GFR/1.73 sq M.predicted gregory g non-blacks MDRD (S/P/Bld) [Vol rate/Area]Ordered By: Franco Inman on 12-04-2024 Estimated GFR (MDRD) Non-Af Amer 71 >60 [facility] Comment on above: mL/min/1.73m2 CKD-EP I Creatinine Equation (2020) H AND P Exam - Hospitaliston 12-04-2024 H&P Exam - Hospitalist Normal [facility] Hematocrit Auto (Bld) [Volum e fraction]Ordered By: Franco Inman on 12-04-2024 Hematocrit (Bld) [Volume fraction] 43.7 % 37-47 [facility] Hemoglobin measurementOrdere d By: Franco Inman on 12-04-2024 Hemoglobin (Bld) [Mass/Vol] 14.1 g/dL 12.0-15.0 [facility] Immature granulocytes/100 WB C Auto (Bld)Ordered By: Franco Inman on 12-04-2024 Immature granulocytes/100 WBC (Bld) 0.800 % 0.0-0.9 [facility] Comment on above: IG% - Immature Granu locytes (promyelocytes, myelocytes and metamyelocytes) > 1% indicates that a LEFT SHIFT is Present. Influenza virus A and B and SARS-CoV-2 (COVID-19) and Respiratory syncytial virus RNAOrdered By: Franco Inman on 12-04-2024 SARS-CoV-2 (COVID-19) RNA KANDY+probe Ql (Unsp spec) [facility] Lipaseon 12-04-2024 Lipase [Catalytic activity/Vol] 25 U/L Normal 13-75 [facility] Comment on above: Result Comment: Jenny capellan note:LIPASE revised reference range effective 23.New Lipase methodology. Expected to produce lower valuesthan the previous assay method.NEW Reference Range: 13 - 75 U/L Performed By: #### L 501.2450 ####[facility] [address] [place], [address] Lipase measurementOrdered By : Franco Inman on 12-04-2024 Lipase [Catalytic activity/Vol] 25 U/L 13-75 [facility] Comment on above: Please note:LIPASE r evised reference range effective 23. New Lipase methodology. Expected to produce lower values than the previous assay method. NEW Reference Range: 13 - 75 U/L Lipase measurement 25 U/L 13-75 [facility] Lymphocytes Auto (Unsp spec) [#/Vol]Ordered By: Franco Inman on 12-04-2024 Lymphocytes (Bld) [#/Vol] 0.96 10*3/uL 0.83-4.51 [facility] Lymphocytes/100 WBC Auto (Un sp spec)Ordered By: Franco Inman on 12-04-2024 Lymphocytes/100 WBC (Bld) 6.8 % Low 19-41 [facility] M100.678on 12-04-2024 M100.678 Pending SARS-CoV-2 (COVID 19) Negative INFLUENZA A Negative INFLUENZA B Negative RSV PCR Negative Normal [facility] Comment on above: Performed By: #### M 100.678 ####[facility] [address] [place], [address] MCV (mean corpuscular volume ) determinationOrdered By: Franco Inman on 12-04-2024 MCV (RBC) [Entitic vol] 83.4 fL 81-99 [facility] Mean corpuscular hemoglobin (MCH) determinationOrdered By: Franco Inman on 12-04-2024 MCH (RBC) [Entitic mass] 26.9 pg Low 27.0-32.0 [facility] Mean corpuscular hemoglobin concentration (MCHC) determinationOrdered By: Franco Inman on 12-04-2024 MCHC (RBC) [Mass/Vol] 32.3 g/dL 32-36 [facility] Mean platelet volume determi nationOrdered By: Franco Inman on 12-04-2024 Platelet mean volume (Bld) [Entitic vol] 10.2 fL 6.2-12.0 [facility] Monocyte percentageOrdered B y: Franco Inman on 12-04-2024 Monocytes/100 WBC (Bld) 10.4 % High 0-10 [facility] Neutrophil percentageOrdered By: Franco Inman on 12-04-2024 Neutrophils/100 WBC (Bld) 80.5 % High 47-70 [facility] No Panel InformationOrdered By: Aleta Aguayo on 12-04-2024 Blood Gas Sample Site R Radial [facility] Blood Gas Specimen Type ART [facility] Blood Gas Vent Mode Not entered [facility] Oxygen Delivery Device Cannula [facility] Nucleated red blood cell per centageOrdered By: Franco Inman on 12-04-2024 Nucleated RBC/100 WBC (Bld) [Ratio] 0 % 0-5 [facility] Oxygen saturation measuremen tOrdered By: Aleta Aguayo on 12-04-2024 Blood Gas Oxygen Saturation 89 % Low 95-99 [facility] [facility] Partial pressure of carbon d ioxide measurementOrdered By: Aleta Aguayo on 12-04-2024 Arterial Blood Partial Pressure CO2 65.4 mmHg High 35-45 [facility] Partial pressure of oxygen m easurementOrdered By: Aleta Aguayo on 12-04-2024 Arterial Blood Partial Pressure O2 68 mmHG Low 75-100 [facility] Platelet countOrdered By: Leo Inman on 12-04-2024 Platelets (Bld) [#/Vol] 271 10*3/uL 150-450 [facility] Potassium (Unsp spec) [Mass/ Vol]Ordered By: Franco Inman on 12-04-2024 Potassium [Moles/Vol] 4.2 mmol/L 3.3-5.1 [facility] RBC Auto (Bld) [#/Vol]Ordere d By: Franco Inman on 12-04-2024 RBC (Bld) [#/Vol] 5.24 10*6/uL 4.2-5.4 [facility] Respiratory pathogens DNA an d RNA panel KANDY+probe (Resp)Ordered By: Aleta Aguayo on 12-04-2024 Respiratory Panel (PCR) [facility] Respiratory pathogens detect ion panel by molecular detection methodOrdered By: Aleta Aguayo on 12-04-2024 Respiratory pathogens DNA and RNA panel KANDY+probe (Resp) [facility] Serum creatinine measurement (mass/volume)Ordered By: Franco Inman on 12-04-2024 Creatinine [Mass/Vol] 0.92 mg/dL 0.70-1.20 [facility] Serum glucose measurement (m ass/volume)Ordered By: Franco Inman on 12-04-2024 Glucose [Mass/Vol] 118 mg/dL High 70-99 [facility] Serum or plasma calcium esthela urement (mass/volume)Ordered By: Franco Inman on 12-04-2024 Calcium [Mass/Vol] 9.2 mg/dL 7.6-11.0 [facility] Serum or plasma urea nitroge n measurement (mass/volume)Ordered By: Franco Inman on 12-04-2024 Urea nitrogen [Mass/Vol] 10 mg/dL 4-19 [facility] Sodium levelOrdered By: Franco Inman on 12-04-2024 Sodium [Moles/Vol] 137 mmol/L 133-145 [facility] Total carbon dioxide measure mentOrdered By: Aleta Aguayo on 12-04-2024 Blood Gas Total CO2 30 mmol/L [facility] White blood cell (WBC) count Ordered By: Franco Inman on 12-04-2024 WBC (Bld) [#/Vol] 14.1 10*3/uL High 4.4-11.0 [facility] pH (Unsp spec)Ordered By: Malinda Aguayo on 12-04-2024 Blood Gas pH 7.24 Low 7.35-7.45 [facility] ANES POSTPROC EVALon 025 ANES POSTPROC EVAL HNO ID: [id number] Author: EDUARD GALEANO MD Service: ? Author Type: Anesthesiologist Type: Anesthesia Postprocedure Evaluation Filed: 12/01/2024 11:19 Note Text: POST ANESTHESIA EVALUATION NOTE : 1965 Procedure Summary Date: 12/01/24 Room / Location: Gastroenterology Anesthesia Start: 1002 Anesthesia Stop: 1046 Procedure: EGD - THERAPEUTIC, EUS, OR TUBE INTERVENTIONS Diagnosis: Chronic recurrent pancreatitis (HCC) 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 chronic pancreatitis (HCC) Chronic RUQ pain (Celiac plexus block for pain secondary to chronic pancreatitis) Scheduled Providers: Jane Farrell MD; Adrian Laird APRN.ACID DUMPER; Eduard Galeano MD Responsible Provider: Eduard Galeano MD Anesthesia Type: general ASA Status: 3 Anesthesia Type: general Airway Type: anesthesia mask, supplemental O2 Last Vitals Vitals Value Taken Time BP 117/74 12/01/24 1110 Temp 36.3 ?C (97.3 ?F) 12/01/24 1046 Pulse 98 12/01/24 1118 Resp 16 12/01/24 1100 SpO2 93 % 12/01/24 1118 Vitals shown include unfiled device data. Post Anesthesia Patient Status Patient Evaluation: PACU. PACU/ICU Patient Condition: stable. Anticipated Disposition: phase 2 then home. Neurological Status: aware and responsive. Pulmonary Status: breathing comfortably on room air Airway Control: returned to baseline unsupported. Cardiovascular Status: stable. Pain Management: clinically adequate Postoperative Hydration: acceptable. Intraoperative Events: no significant anesthesia events Post Operative Nausea/Vomiting Status: no significant post operative nausea or vomiting Recommendation: further care per PACU/ICU/floor team. Anesthesia Observations No Documentation SIGNATURE: Eduard Galeano MD PATIENT NAME: Gracie Banuelos DATE: December 01, 2024 TIME: 11:19 AM CSN: [id number] [facility] ANES PRE-OPon 12-01-2024 ANES PRE-OP HNO ID: [id number] Author: EDUARD GALEANO MD Service: ? Author Type: Anesthesiologist Type: Anesthesia Preprocedure Evaluation Filed: 12/01/2024 10:04 Note Text: ANESTHESIOLOGY DAY OF SURGERY NOTE : 1965 Procedure Information Anesthesia Start Date/Time: 12/01/24 1002 Scheduled providers: Jane Farrell MD; Adrian Laird APRN.ACID DUMPER; Eduard Galeano MD Procedure: EGD - THERAPEUTIC, EUS, OR TUBE INTERVENTIONS Location: Gastroenterology Estimated body mass index is 24.45 kg/m? as calculated from the following: Height as of 11/02/24: 160 cm (5' 3). Weight as of 11/02/24: 62.6 kg (138 lb). Most recent hematocrit and potassium results: Hematocrit 42.5 08/05/2024 Potassium 4.6 08/12/2024 Relevant Problems CARDIO (+) Essential hypertension, benign -RENAL (+) Alcoholic hepatitis without ascites PULMONARY (+) Chronic obstructive pulmonary disease (HCC) (+) Pulmonary emphysema (HCC) I - PHYSICAL EVALUATION AIRWAY Patient intubated: No. Tracheostomy tube not present Mallampati: III. TM distance: >3 FB. Neck ROM: full ROM without neurological symptoms. Mouth opening: adequate. Short neck: no. Thick neck: no Additional exam findings: no II - ANESTHESIA PLAN ASA Score: 3 Anesthetic Plan: MAC NPO Status: adequate [place] Monitoring Plan Monitoring plan: standard ASA. Post Procedure Analgesic Plan Postoperative analgesic plan: per surgical service. Informed Consent Anesthetic risks, benefits, alternatives, personnel and consent discussed: yes. Patient / Responsible Alliance Party agrees to proceed: yes Patient / Surrogate agrees to blood products: blood products not planned Significant changes in the patient condition since the History and Physical, not otherwise documented in primary service progress note: no. Potential Anesthesia issues that may suggest increased risk of complications or contraindication to planned procedure: none. Vitals Value Taken Time BP 112/67 12/01/24 0950 Pulse 78 12/01/24 0950 Resp 16 12/01/24 0950 Temp 36 ?C (96.8 ?F) 12/01/24 0950 SpO2 93 % 12/01/24 0950 Outpatient Medications as of 12/01/[address] (PROTONIX) 40 mg tablet Take 1 tablet by mouth once daily. metoprolol tartrate, short acting, (LOPRESSOR) 25 mg tablet Take 1 tablet by mouth two times a day. amLODIPine (NORVASC) 5 mg tablet Take 1 tablet by mouth once daily. hydrOXYzine HCl (ATARAX) 25 mg tablet Take 1 tablet by mouth three times a day as needed for itching/rash. MUCINEX D MAXIMUM STRENGTH 120-1,200 mg tab ER 12 hr Take 1 tablet by mouth as needed. Cholecalciferol, Vitamin D3, 50 mcg (2,000 unit) cap Take 1 capsule by mouth once daily. predniSONE (DELTASONE) 20 mg tablet Take 2 tablets by mouth once daily. (Patient not taking: Reported on 11/02/2024) ondansetron orally disintegrating (ZOFRAN ODT) 4 mg disintegrating tablet Take 1 tablet by mouth every 6 hours as needed for nausea/vomiting. ziprasidone (GEODON) 40 mg capsule Take 1 capsule by mouth at bedtime as needed. jzttjg-njkmdnzk-fjsnvhu (CREON 24) 24,000-76,000 -120,000 unit delayed release capsule Take 3 capsules by mouth once daily. (Patient not taking: Reported on 11/02/2024) hydrOXYzine pamoate (VISTARIL) 25 mg capsule Take 1 capsule by mouth daily at bedtime. lisinopril (ZESTRIL) 10 mg tablet Take 1 tablet by mouth once daily. simvastatin (ZOCOR) 20 mg tablet Take 1 tablet by mouth daily at bedtime. (Patient not taking: Reported on 11/02/2024) Benzonatate 200 mg capsule Take 200 mg by mouth three times a day as needed. (Patient not taking: Reported on 11/07/2024) Blood Pressure Monitor Home blood pressure monitor cyclobenzaprine (FLEXERIL) 10 mg tablet Take 1 tablet by mouth twice daily as needed for muscle spasm. albuterol HFA (VENTOLIN HFA) 90 mcg/actuation inhaler Inhale 2 Puffs as instructed four times daily as needed. ferrous sulfate (SLOW FE) 140 mg (45 mg iron) TbER Take 1 tablet by mouth twice daily with meals. mirtazapine (REMERON) [address] Talamantes. (Patient taking differently: Take 45 mg by mouth daily at bedtime. Prescribed by Dr. Talamantes.) multivitamin tablet Take 1 tablet by mouth once daily. ARIPiprazole (ABILIFY) 5 mg tablet 5 mg once daily. albuterol (PROVENTIL) 2.5 mg /3 mL (0.083 %) nebulizer solution Use 3 mL via nebulizer one time only for 1 dose. Use over 5-15minutes. OXYGEN, HOME THERAPY, Inhale as instructed as directed. Patient is on 2-3 liters COMPOUNDED PRESCRIPTION Pulse Oximetry COMPOUNDED PRESCRIPTION nebulizer supplies (tubing) Facility-Administered Medications as of 12/01/2024 Medication Dose Route Frequency midazolam injection (VERSED) INTRAVENOUS PRN NaCl 0.9% iv infusion INTRAVENOUS X (ONE-STEP ONLY) CONTINUOUS PRN I have interviewed and examined the patient. I have reviewed the medical record and/or the pre-anesthesia evaluation, pertinent labs, and test results. This conta (more content not included)... Normal [facility] Matteo 12-01-2024 [facility] GRACIE BANUELOS ([id number]) 1965 F Date Time Provider Department 12/01/24 JANE FARRELL During your visit today, we recorded the following information about you: Jane Farrell MD 12/01/2024 12:00 PM Signed Orders Allergies As of Date: 12/01/2024 Noted Allergy Reaction BACTRIM (SULFAMETHOXAZOLE-TRIME TH*11/28/2022 4 - Hives HYDROCODONE 08/02/2020 9 - Itching PENICILLINS 07/07/2006 14 - Other: See Comments Comments: hives VALIUM (DIAZEPAM) 11/02/2013 14 - Other: See Comments Comments: cross reaction with alcohol addiction Date Reviewed: 12/01/2024 Reviewed by: Reshma Telles RN - Fully Assessed Reason for Visit: Endoscopy Call [1773] Primary Visit Diagnosis:Other chronic pancreatitis (HCC) [K86.1] Order(s):ERCP [GI18] Order #: [id number] FUTURE Prescriptions as of 12/01/2024 - pantoprazole DR (PROTONIX) 40 mg tablet Take 1 tablet by mouth once daily. - metoprolol tartrate, short acting, (LOPRESSOR) 25 mg tablet Take 1 tablet by mouth two times a day. - amLODIPine (NORVASC) 5 mg tablet Take 1 tablet by mouth once daily. - hydrOXYzine HCl (ATARAX) 25 mg tablet Take 1 tablet by mouth three times a day as needed for itching/rash. - MUCINEX D MAXIMUM STRENGTH 120-1,200 mg tab ER 12 hr Take 1 tablet by mouth as needed. - Cholecalciferol, Vitamin D3, 50 mcg (2,000 unit) cap Take 1 capsule by mouth once daily. - predniSONE (DELTASONE) 20 mg tablet Take 2 tablets by mouth once daily. - ondansetron orally disintegrating (ZOFRAN ODT) 4 mg disintegrating tablet Take 1 tablet by mouth every 6 hours as needed for nausea/vomiting. - ziprasidone (GEODON) 40 mg capsule Take 1 capsule by mouth at bedtime as needed. - azwpjh-biapdjde-qiemtwx (CREON 24) 24,000-76,000 -120,000 unit delayed release capsule Take 3 capsules by mouth once daily. - hydrOXYzine pamoate (VISTARIL) 25 mg capsule Take 1 capsule by mouth daily at bedtime. - lisinopril (ZESTRIL) 10 mg tablet Take 1 tablet by mouth once daily. - simvastatin (ZOCOR) 20 mg tablet Take 1 tablet by mouth daily at bedtime. - Benzonatate 200 mg capsule Take 200 mg by mouth three times a day as needed. - Blood Pressure Monitor Home blood pressure monitor - cyclobenzaprine (FLEXERIL) 10 mg tablet Take 1 tablet by mouth twice daily as needed for muscle spasm. - albuterol HFA (VENTOLIN HFA) 90 mcg/actuation inhaler Inhale 2 Puffs as instructed four times daily as needed. - ferrous sulfate (SLOW FE) 140 mg (45 mg iron) TbER Take 1 tablet by mouth twice daily with meals. - mirtazapine (REMERON) [address] Talamantes. - multivitamin tablet Take 1 tablet by mouth once daily. - ARIPiprazole (ABILIFY) 5 mg tablet 5 mg once daily. - albuterol (PROVENTIL) 2.5 mg /3 mL (0.083 %) nebulizer solution Use 3 mL via nebulizer one time only for 1 dose. Use over 5-15minutes. - OXYGEN, HOME THERAPY, Inhale as instructed as directed. Patient is on 2-3 liters - COMPOUNDED PRESCRIPTION Pulse Oximetry - COMPOUNDED PRESCRIPTION nebulizer supplies (tubing) Problem List As Of Date 12/01/2024 Noted Resolved TOBACCO USE DISORDER [F17.200] 06/29/2008 Anxiety state [F41.1] 10/19/2008 Hyperlipidemia [E78.5] 01/31/2009 Essential Hypertension, Benign [I10] 09/04/2009 Gastroesophageal reflux disease [K21.9] 12/26/2009 01/10/2021 Acute gastritis without mention of hemorrhage [*10/03/2010 01/03/2015 Pancreatitis chronic 05/26/2011 08/27/2017 Chronic obstructive pulmonary disease (HCC) [J4*05/25/2012 Lumbar disc disease with radiculopathy [M51.16] 06/18/2012 Postmenopausal bleeding [N95.0] 12/07/2012 Ovarian cyst, right [N83.201] 12/27/2012 Alcoholic hepatitis without ascites [K70.10] 11/16/2013 Urine, incontinence, stress female [N39.3] 11/24/2014 HPV test positive [FWA1931] 11/24/2014 Alcohol dependence in remission (HCC) [F10.21] 07/10/2015 11/02/2018 Pulmonary emphysema (HCC) [J43.9] 11/27/2015 Irritable bowel syndrome with both constipation*08/27/2017 Alcohol use disorder, moderate, dependence (HCC*08/27/2017 DDD (degenerative disc disease), cervical [M50.*09/03/2018 Severe protein-calorie malnutrition (HCC) [E43] 01/07/2019 12/26/2022 Chronic recurrent pancreatitis (HCC) [K86.1] 01/07/2019 Reactive depression [F32.9] 04/28/2019 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 chronic pancreatitis (HCC) [K86*07/26/2019 Moderate episode of recurrent major depressive *09/01/2020 History of colonic polyps [Z86.0100] 01/10/2021 01/10/2021 Abdominal bloating [R14.0] 01/10/2021 01/10/2021 Encounter Status:Closed by JANE FARRELL on 12/01/24 Normal [facility] EGD Study observation Narrat iveon 12-01-2024 [facility] Radiology Study observation (narrative) [facility] NURSING PROGon 12-01-2024 NURSING PROG HNO ID: [id number] Author: RESHMA TELLES RN Service: Nursing Author Type: Registered Nurse Type: Nursing Progress Note Filed: 12/01/2024 10:58 Note Text: AMBULATORY PATIENT EDUCATION NOTE TOPIC: GI PROCEDURES: Endoscopic Ultrasound (EUS) with or without Fine Needle Aspiration (FNA) READINESS TO LEARN INSTRUCTION PROVIDED TO: Patient and family member COGNITIVE ABILITY: Alert and oriented PTED MOTIVATION TO LEARN: Eager Interested FAMILY SUPPORT: High - Very involved in pt care IPATIENT LEARNS BEST BY: Individual Instruction FACTORS AFFECTING LEARNING: None PHYSICAL LIMITATIONS AFFECTING LEARNING: None LEARNING RESPONSE METHOD OF INSTRUCTION: Individual instruction PATIENT / FAMILY RESPONSE: Verbalizes understanding of: WORSENING CONDITION-Signs and symptoms of a worsening condition that warrant a call to the physician FOLLOW-UP PLAN: Patient instructed to call with any further issues Recommend - Recommend continued instruction and follow up as directed Contact information given. SUPPLEMENTAL MATERIAL: Procedure Discharge Instructions REFERRAL (RECOMMENDATION): None Electronically Signed By: Reshma Telles RN [facility] NURSING PROG HNO ID: [id number] Author: KATHIE DORANTES RN Service: ? Author Type: Registered Nurse Type: Nursing Progress Note Filed: 12/01/2024 09:48 Note Text: PRE OP LEARNING ASSESSMENT PROCEDURE/SURGERY: GI PROCEDURES: EGD READINESS TO LEARN COGNITIVE ABILITY: Alert and oriented MOTIVATION TO LEARN: Eager FAMILY SUPPORT: High - Very involved in pt care PATIENT LEARNS BEST BY: Individual Instruction Verbal Instruction FACTORS AFFECTING LEARNING: None PHYSICAL LIMITATIONS AFFECTING LEARNING: None Electronically Signed By: Kathie Dorantes RN In Department: GASTROENTEROLOGY [facility] 11-25-2024 CNPN Telephone ([facility]) GRACIE BANUELOS ([id number]) 1965 F Date Time Provider Department 11/25/24 JANE FARRELL [facility] During your visit today, we recorded the following information about you: Lyric Yeung 11/25/2024 12:27 PM Signed Patient scheduled for EGD December 01 with provider. States she has anxiety and is asking provider to prescribe something she can take prior to the procedure; she has not used a medication in the past for this issue Please let her know if you do prescribe or if you won't [phone] (does not use MyChart) Juan Abbott LPN 11/25/2024 3:58 PM Signed Spoke with Gracie, discussed that [facility] staff will be talking to patient in preoperative area and will give any medications IV to help with anxiety, patient understands and has no other questions. Juan Bloom LPN Allergies As of Date: 11/25/2024 Noted Allergy Reaction BACTRIM (SULFAMETHOXAZOLE-TRIME TH*11/28/2022 4 - Hives HYDROCODONE 08/02/2020 9 - Itching PENICILLINS 07/07/2006 14 - Other: See Comments Comments: hives VALIUM (DIAZEPAM) 11/02/2013 14 - Other: See Comments Comments: cross reaction with alcohol addiction Date Reviewed: 11/07/2024 Reviewed by: Juan Borjas MA - Fully Assessed Reason for Visit: Medication Problem [65] Cmt: Medication for EGD Prescriptions as of 11/25/2024 - pantoprazole DR (PROTONIX) 40 mg tablet Take 1 tablet by mouth once daily. - metoprolol tartrate, short acting, (LOPRESSOR) 25 mg tablet Take 1 tablet by mouth two times a day. - amLODIPine (NORVASC) 5 mg tablet Take 1 tablet by mouth once daily. - hydrOXYzine HCl (ATARAX) 25 mg tablet Take 1 tablet by mouth three times a day as needed for itching/rash. - MUCINEX D MAXIMUM STRENGTH 120-1,200 mg tab ER 12 hr Take 1 tablet by mouth as needed. - Cholecalciferol, Vitamin D3, 50 mcg (2,000 unit) cap Take 1 capsule by mouth once daily. - predniSONE (DELTASONE) 20 mg tablet Take 2 tablets by mouth once daily. - ondansetron orally disintegrating (ZOFRAN ODT) 4 mg disintegrating tablet Take 1 tablet by mouth every 6 hours as needed for nausea/vomiting. - ziprasidone (GEODON) 40 mg capsule Take 1 capsule by mouth at bedtime as needed. - vziovt-nptzvnpb-fqldtnq (CREON 24) 24,000-76,000 -120,000 unit delayed release capsule Take 3 capsules by mouth once daily. - hydrOXYzine pamoate (VISTARIL) 25 mg capsule Take 1 capsule by mouth daily at bedtime. - lisinopril (ZESTRIL) 10 mg tablet Take 1 tablet by mouth once daily. - simvastatin (ZOCOR) 20 mg tablet Take 1 tablet by mouth daily at bedtime. - Benzonatate 200 mg capsule Take 200 mg by mouth three times a day as needed. - Blood Pressure Monitor Home blood pressure monitor - cyclobenzaprine (FLEXERIL) 10 mg tablet Take 1 tablet by mouth twice daily as needed for muscle spasm. - albuterol HFA (VENTOLIN HFA) 90 mcg/actuation inhaler Inhale 2 Puffs as instructed four times daily as needed. - ferrous sulfate (SLOW FE) 140 mg (45 mg iron) TbER Take 1 tablet by mouth twice daily with meals. - mirtazapine (REMERON) [address] Talamantes. - multivitamin tablet Take 1 tablet by mouth once daily. - ARIPiprazole (ABILIFY) 5 mg tablet 5 mg once daily. - albuterol (PROVENTIL) 2.5 mg /3 mL (0.083 %) nebulizer solution Use 3 mL via nebulizer one time only for 1 dose. Use over 5-15minutes. - OXYGEN, HOME THERAPY, Inhale as instructed as directed. Patient is on 2-3 liters - COMPOUNDED PRESCRIPTION Pulse Oximetry - COMPOUNDED PRESCRIPTION nebulizer supplies (tubing) Problem List As Of Date 11/25/2024 Noted Resolved TOBACCO USE DISORDER [F17.200] 06/29/2008 Anxiety state [F41.1] 10/19/2008 Hyperlipidemia [E78.5] 01/31/2009 Essential Hypertension, Benign [I10] 09/04/2009 Gastroesophageal reflux disease [K21.9] 12/26/2009 01/10/2021 Acute gastritis without mention of hemorrhage [*10/03/2010 01/03/2015 Pancreatitis chronic 05/26/2011 08/27/2017 Chronic obstructive pulmonary disease (HCC) [J4*05/25/2012 Lumbar disc disease with radiculopathy [M51.16] 06/18/2012 Postmenopausal bleeding [N95.0] 12/07/2012 Ovarian cyst, right [N83.201] 12/27/2012 Alcoholic hepatitis without ascites [K70.10] 11/16/2013 Urine, incontinence, stress female [N39.3] 11/24/2014 HPV test positive [[id number]] 11/24/2014 Alcohol dependence in remission (HCC) [F10.21] 07/10/2015 11/02/2018 Pulmonary emphysema (HCC) [J43.9] 11/27/2015 Irritable bowel syndrome with both constipation*08/27/2017 Alcohol use disorder, moderate, dependence (HCC*08/27/2017 DDD (degenerative disc disease), cervical [M50.*09/03/2018 Severe protein-calorie malnutrition (HCC) [E43] 01/07/2019 12/26/2022 Chronic recurrent pancreatitis (HCC) [K86.1] 01/07/2019 Reactive depression [F32.9] 04/28/2019 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 chronic pancreatitis (HCC) [K86*07/26/2019 Mo (more content not included)... Normal [facility] CNPN Telephone (GAPRA3) GRACIE BANUELOS ([id number]) 1965 F Date Time Provider Department 11/25/24 RAISA [id number] During your visit today, we recorded the following information about you: Raisa Jimenez RN 11/25/2024 12:19 PM Signed Spoke with pt and went over prep instructions, answering all her questions until pt was comfortable and verbalized understanding Raisa Jimenez MA Allergies As of Date: 11/25/2024 Noted Allergy Reaction BACTRIM (SULFAMETHOXAZOLE-TRIME TH*11/28/2022 4 - Hives HYDROCODONE 08/02/2020 9 - Itching PENICILLINS 07/07/2006 14 - Other: See Comments Comments: hives VALIUM (DIAZEPAM) 11/02/2013 14 - Other: See Comments Comments: cross reaction with alcohol addiction Date Reviewed: 11/07/2024 Reviewed by: Juan Borjas MA - Fully Assessed Prescriptions as of 11/25/2024 - pantoprazole DR (PROTONIX) 40 mg tablet Take 1 tablet by mouth once daily. - metoprolol tartrate, short acting, (LOPRESSOR) 25 mg tablet Take 1 tablet by mouth two times a day. - amLODIPine (NORVASC) 5 mg tablet Take 1 tablet by mouth once daily. - hydrOXYzine HCl (ATARAX) 25 mg tablet Take 1 tablet by mouth three times a day as needed for itching/rash. - MUCINEX D MAXIMUM STRENGTH 120-1,200 mg tab ER 12 hr Take 1 tablet by mouth as needed. - Cholecalciferol, Vitamin D3, 50 mcg (2,000 unit) cap Take 1 capsule by mouth once daily. - predniSONE (DELTASONE) 20 mg tablet Take 2 tablets by mouth once daily. - ondansetron orally disintegrating (ZOFRAN ODT) 4 mg disintegrating tablet Take 1 tablet by mouth every 6 hours as needed for nausea/vomiting. - ziprasidone (GEODON) 40 mg capsule Take 1 capsule by mouth at bedtime as needed. - phffkp-dctpwlke-ysndnrs (CREON 24) 24,000-76,000 -120,000 unit delayed release capsule Take 3 capsules by mouth once daily. - hydrOXYzine pamoate (VISTARIL) 25 mg capsule Take 1 capsule by mouth daily at bedtime. - lisinopril (ZESTRIL) 10 mg tablet Take 1 tablet by mouth once daily. - simvastatin (ZOCOR) 20 mg tablet Take 1 tablet by mouth daily at bedtime. - Benzonatate 200 mg capsule Take 200 mg by mouth three times a day as needed. - Blood Pressure Monitor Home blood pressure monitor - cyclobenzaprine (FLEXERIL) 10 mg tablet Take 1 tablet by mouth twice daily as needed for muscle spasm. - albuterol HFA (VENTOLIN HFA) 90 mcg/actuation inhaler Inhale 2 Puffs as instructed four times daily as needed. - ferrous sulfate (SLOW FE) 140 mg (45 mg iron) TbER Take 1 tablet by mouth twice daily with meals. - mirtazapine (REMERON) [address] Pres[address] Talamantes. - multivitamin tablet Take 1 tablet by mouth once daily. - ARIPiprazole (ABILIFY) 5 mg tablet 5 mg once daily. - albuterol (PROVENTIL) 2.5 mg /3 mL (0.083 %) nebulizer solution Use 3 mL via nebulizer one time only for 1 dose. Use over 5-15minutes. - OXYGEN, HOME THERAPY, Inhale as instructed as directed. Patient is on 2-3 liters - COMPOUNDED PRESCRIPTION Pulse Oximetry - COMPOUNDED PRESCRIPTION nebulizer supplies (tubing) Problem List As Of Date 11/25/2024 Noted Resolved TOBACCO USE DISORDER [F17.200] 06/29/2008 Anxiety state [F41.1] 10/19/2008 Hyperlipidemia [E78.5] 01/31/2009 Essential Hypertension, Benign [I10] 09/04/2009 Gastroesophageal reflux disease [K21.9] 12/26/2009 01/10/2021 Acute gastritis without mention of hemorrhage [*10/03/2010 01/03/2015 Pancreatitis chronic 05/26/2011 08/27/2017 Chronic obstructive pulmonary disease (HCC) [J4*05/25/2012 Lumbar disc disease with radiculopathy [M51.16] 06/18/2012 Postmenopausal bleeding [N95.0] 12/07/2012 Ovarian cyst, right [N83.201] 12/27/2012 Alcoholic hepatitis without ascites [K70.10] 11/16/2013 Urine, incontinence, stress female [N39.3] 11/24/2014 HPV test positive [[id number]] 11/24/2014 Alcohol dependence in remission (HCC) [F10.21] 07/10/2015 11/02/2018 Pulmonary emphysema (HCC) [J43.9] 11/27/2015 Irritable bowel syndrome with both constipation*08/27/2017 Alcohol use disorder, moderate, dependence (HCC*08/27/2017 DDD (degenerative disc disease), cervical [M50.*09/03/2018 Severe protein-calorie malnutrition (HCC) [E43] 01/07/2019 12/26/2022 Chronic recurrent pancreatitis (HCC) [K86.1] 01/07/2019 Reactive depression [F32.9] 04/28/2019 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 chronic pancreatitis (HCC) [K86*07/26/2019 Moderate episode of recurrent major depressive *09/01/2020 History of colonic polyps [Z86.0100] 01/10/2021 01/10/2021 Abdominal bloating [R14.0] 01/10/2021 01/10/2021 Encounter Status:Closed by RAISA JIMENEZ on 11/25/24 Normal [facility] NURSING PROGon 11-24-2024 NURSING PROG HNO ID: [id number] Author: CARROLL LEBLANC RN Service: ? Author Type: Registered Nurse Type: Nursing Progress Note Filed: 11/24/2024 16:10 Note Text: Attempted to reach the patient at the contact number that they provided [phone] (home) . Unable to speak with patient so without identifying the patient the following information was left on their voice mail: Date of procedure, location and report time Prep instructions A message was left informing the patient/patient patient support representative they must have a responsible adult accompany them to their procedure; and remain in the endoscopy area until they are discharged. Failure to have a responsible adult accompany the patient to their procedure appointment prevents the use of sedation or anesthesia for their procedure; and can result in cancellation of the procedure NPO instructions were reviewed. Instructions to contact their primary care provider regarding their medications and which medications to stop in preparation for their procedure Instructions to completely read and follow the written instructions that they recieved regarding their procedure. Number to call with questions or concerns [phone] Number to call to cancel their procedure [phone] [facility] GRACIE BANUELOS ([id number]) 1965 F Date Time Provider Department 11/08/24 [facility] [place] your visit today, we recorded the following information about you: Maribeth Owen LPN 11/08/2024 12:27 PM Signed Pt called in confused. There was a medication sent in for her called hydroxyzine HCI (Atarax). For the dx on this was itching and rash. Pt reports she is not having these symptoms. Pt asking was this sent in for her anxiety? Pt reports she needs something for anxiety. Please review and advise pt back. MCKENNA Juárez Chitra, MD 11/09/2024 10:24 AM Signed The medication Is for anxiety, and was the medication she requested. So please ask her to use it. Annmarie Cisneros MD, Rachel L, MA 11/09/2024 11:41 AM Signed Patient notified and verbalized understanding. Larry Hastings MA Allergies As of Date: 11/08/2024 Noted Allergy Reaction BACTRIM (SULFAMETHOXAZOLE-TRIME TH*11/28/2022 4 - Hives HYDROCODONE 08/02/2020 9 - Itching PENICILLINS 07/07/2006 14 - Other: See Comments Comments: hives VALIUM (DIAZEPAM) 11/02/2013 14 - Other: See Comments Comments: cross reaction with alcohol addiction Date Reviewed: 11/07/2024 Reviewed by: Juan Borjas MA - Fully Assessed Reason for Visit: Medication Problem [65] Prescriptions as of 11/09/2024 - metoprolol tartrate, short acting, (LOPRESSOR) 25 mg tablet Take 1 tablet by mouth two times a day. - amLODIPine (NORVASC) 5 mg tablet Take 1 tablet by mouth once daily. - hydrOXYzine HCl (ATARAX) 25 mg tablet Take 1 tablet by mouth three times a day as needed for itching/rash. - MUCINEX D MAXIMUM STRENGTH 120-1,200 mg tab ER 12 hr Take 1 tablet by mouth as needed. - Cholecalciferol, Vitamin D3, 50 mcg (2,000 unit) cap Take 1 capsule by mouth once daily. - predniSONE (DELTASONE) 20 mg tablet Take 2 tablets by mouth once daily. - ondansetron orally disintegrating (ZOFRAN ODT) 4 mg disintegrating tablet Take 1 tablet by mouth every 6 hours as needed for nausea/vomiting. - ziprasidone (GEODON) 40 mg capsule Take 1 capsule by mouth at bedtime as needed. - srfsjn-tdiplgku-qzvgtrb (CREON 24) 24,000-76,000 -120,000 unit delayed release capsule Take 3 capsules by mouth once daily. - hydrOXYzine pamoate (VISTARIL) 25 mg capsule Take 1 capsule by mouth daily at bedtime. - lisinopril (ZESTRIL) 10 mg tablet Take 1 tablet by mouth once daily. - pantoprazole DR (PROTONIX) 40 mg tablet Take 1 tablet by mouth once daily. - simvastatin (ZOCOR) 20 mg tablet Take 1 tablet by mouth daily at bedtime. - Benzonatate 200 mg capsule Take 200 mg by mouth three times a day as needed. - Blood Pressure Monitor Home blood pressure monitor - cyclobenzaprine (FLEXERIL) 10 mg tablet Take 1 tablet by mouth twice daily as needed for muscle spasm. - albuterol HFA (VENTOLIN HFA) 90 mcg/actuation inhaler Inhale 2 Puffs as instructed four times daily as needed. - ferrous sulfate (SLOW FE) 140 mg (45 mg iron) TbER Take 1 tablet by mouth twice daily with meals. - mirtazapine (REMERON) [address] Talamantes. - multivitamin tablet Take 1 tablet by mouth once daily. - ARIPiprazole (ABILIFY) 5 mg tablet 5 mg once daily. - albuterol (PROVENTIL) 2.5 mg /3 mL (0.083 %) nebulizer solution Use 3 mL via nebulizer one time only for 1 dose. Use over 5-15minutes. - OXYGEN, HOME THERAPY, Inhale as instructed as directed. Patient is on 2-3 liters - COMPOUNDED PRESCRIPTION Pulse Oximetry - COMPOUNDED PRESCRIPTION nebulizer supplies (tubing) Problem List As Of Date 11/08/2024 Noted Resolved TOBACCO USE DISORDER [F17.200] 06/29/2008 Anxiety state [F41.1] 10/19/2008 Hyperlipidemia [E78.5] 01/31/2009 Essential Hypertension, Benign [I10] 09/04/2009 Gastroesophageal reflux disease [K21.9] 12/26/2009 01/10/2021 Acute gastritis without mention of hemorrhage [*10/03/2010 01/03/2015 Pancreatitis chronic 05/26/2011 08/27/2017 Chronic obstructive pulmonary disease (HCC) [J4*05/25/2012 Lumbar disc disease with radiculopathy [M51.16] 06/18/2012 Postmenopausal bleeding [N95.0] 12/07/2012 Ovarian cyst, right [N83.201] 12/27/2012 Alcoholic hepatitis without ascites [K70.10] 11/16/2013 Urine, incontinence, stress female [N39.3] 11/24/2014 HPV test positive [[id number]] 11/24/2014 Alcohol dependence in remission (HCC) [F10.21] 07/10/2015 11/02/2018 Pulmonary emphysema (HCC) [J43.9] 11/27/2015 Irritable bowel syndrome with both constipation*08/27/2017 Alcohol use disorder, moderate, dependence (HCC*08/27/2017 DDD (degenerative disc disease), cervical [M50.*09/03/2018 Severe protein-calorie malnutrition (HCC) [E43] 01/07/2019 12/26/2022 Chronic recurrent pancreatitis (HCC) [K86.1] 01/07/2019 Reactive depression [F32.9] 04/28/2019 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 chronic pancreatitis (HCC) [K86*07/26 (more content not included)... Normal [facility] CNOVon 11-07-2024 CNOV Office Visit (INTMWS ) GRACIE BANUELOS ([id number]) 1965 F Date Time Provider Department 11/07/24 2:00 PM ANNMARIE ELKINS INTMWS During your visit today, we recorded the following information about you: Temperature Pulse Respiration Blood pressure 97.3 degrees 81/minute 20/minute 83/53 Annmarie Elkins MD 11/07/2024 6:00 PM Signed HPI Gracie is a 59-year-old woman with a past medical history of hypertension, hyperlipidemia, alcohol use disorder with moderate dependence currently only using alcohol twice a month, alcohol hepatitis and pancreatitis, tobacco abuse disorder, pulmonary emphysema, lumbar disc disease with radiculopathy, anxiety and depression. She was admitted to [facility] from 01/01 to 01/04 for pneumonia and COPD exacerbation. She was treated with Solumedrol and IV antibiotics (Rocephin and azithromycin). She was tachycardic and BP was elevated during admission. She was started on HCTZ 12.5 mg daily and Metoprolol 25 mg BID, Norvasc increased to 5 mg daily. Discharged home on prednisone burst with taper, Levaquin, Duoneb, Tessalon Perles and BP medications. Patient reports SOB and cough are much better, at baseline now. Wearing oxygen at home prior to admission, uses as needed. She is still feeling exhausted and gets lightheaded with position changes. BP is low today, she is unable to check at home. Taking all medications as prescribed except she is confused about a couple of the BP meds. Levaquin was completed and has a couple more days left of the prednisone. 05/21: She is here for a follow-up her bp is much well controlled today, she is cutting down her smoking, Is down to a half pack. Has cut down her drinking and is drinking 2 times a month. Advised not to drink at all as she has pancreatitis. Asked her to continue using the Creon. She has been using the Ativan every day 2 times and is only getting Remeron from [facility]. She says she has panic and the Ativan helps but she is not on an SSRI. She is on hydroxyzine. 08/05/24: The patient was started on lexapro in the last visit for anxiety. It made her have nausea, gave her dry heaves and diarrhea for 2 weeks, and it just did not get better. She is on ativan, but we discussed the side effects of it and the link with dementia and that we should try to cut down the medication She is on geodon in the morning and abilify at night. Her main concern is the anxiety and insomnia. Insomnia: she has been having insomnia for the past many years. She goes to bed and wakes up at the same time 10 pm and 4 am . She watches tv just before going to bed. She smokes around 11 pm. She drinks 3 cups of coffee to feel awake. Does a little exercise. She uses oxygen at night time as needed. 11/07/24: She has been working to reduce the amount of pop and coffee. She she been drinking a lot of it but it makes her feel bloated Was drinking 6 cups of pop and 6 cups of coffee. She has cut down to 2 cans a day and coffee 2 cups a day. She has been going without it. She cannot sleep very well at night time, want to refill the hydroxyzine. She feels more SOB with exertion. Notes that she thinks she is congested. Phlegm is thicker, thought she had a fever 3 days ago. She broke out in a sweat, she layed down for a little bit, woke up in a sweat and thinks her fever broke since then. She is already on abx for her blood disorder through her body. Reviewed her ct of the pancreas, there is calcification of the pancreas s/o of chronic pancreatitis,. The last time she drank was 3 weeks ago, she smoked under a pack, bad days she smoked over a pack. She is not a person to hide anything. Review of Systems Constitutional: Positive for fatigue. Negative for chills, diaphoresis, fever and unexpected weight change. HENT: Negative for congestion, postnasal drip, rhinorrhea, sinus pressure, sinus pain and sore throat. Respiratory: Shortness of breath: baseline. Cardiovascular: Negative for chest pain, palpitations and leg swelling. Gastrointestinal: Negative for abdominal pain, diarrhea, nausea and vomiting. Neurological: Positive for light-headedness (positional). Negative for dizziness, syncope, weakness, numbness and headaches. Psychiatric/Behavioral: Negative for confusion. Reviewed past medical , surgical and social history. ALLERGIES Bactrim [Sulfamethoxazole-Trime thoprim], Hydrocodone, Penicillins, and Valium [Diazepam] MEDICATIONS Cholecalciferol, Vitamin D3, 50 mcg (2,000 unit) cap Take 1 capsule by mouth once daily. predniSONE (DELTASONE) 20 mg tablet Take 2 tablets by mouth once daily. (Patient not taking: Reported on 11/02/2024) ondansetron orally disintegrating (ZOFRAN ODT) 4 mg disintegrating tablet Take 1 tablet by mouth every 6 hours as needed for nausea/vomiting. ziprasidone (GEODON) 40 mg capsule Take 1 capsule by mouth at bedtime as needed (more content not included)... Normal [facility] XR CHEST 2V FRONTAL/LATon XR CHEST 2V FRONTAL/LAT * * *Final Repor t* * * DATE OF EXAM: Nov 07 2024 3:16PM WOX [id number] - XR CHEST 2V FRONTAL/LAT / PROCEDURE REASON: COPD with exacerbation (HCC) * * * * Physician Interpretation * * * * EXAMINATION: CHEST RADIOGRAPH (2 VIEW FRONTAL and LATERAL) CLINICAL HISTORY: COPD with exacerbation (HCC) MQ: XC2_6 EXAM DATE/TIME: 11/07/2024 3:16 PM COMPARISON: Chest x-ray of 08/10/2024 RESULT: Lines, tubes, and devices: None. Lungs and pleura: No consolidation. No lung mass. No pleural effusion. No pneumothorax. Cardiomediastinal silhouette: Normal cardiomediastinal silhouette. Bones and soft tissues: Unremarkable. IMPRESSION: No acute radiographic abnormality. Advanced Practice Nurse Psychotherapist: [facility] Transcribe Date/Time: Nov 07 2024 4:49P Dictated by : EDUARDO MATTHEWS MD This examination was interpreted and the report reviewed and electronically signed by: EDUARDO MATTHEWS MD on Nov 07 2024 4:49PM EST [id number] [facility] XR Chest PA and Lateralon IMPRESSION: No acute radiographic abnormality. Advanced Practice Nurse Psychotherapist: [facility] Transcribe Date/Time: Nov 07 2024 4:49P Dictated by : EDUARDO MATTHEWS MD This examination was interpreted and the report reviewed and electronically signed by: EDUARDO MATTHEWS MD on Nov 07 2024 4:49PM EST DIVISION OF RADIOLOGY * * *Final Report* * * DATE OF EXAM: Nov 07 2024 3:16PM WOX [id number] - XR CHEST 2V FRONTAL/LAT / PROCEDURE REASON: COPD with exacerbation (HCC) * * * * Physician Interpretation * * * * EXAMINATION: CHEST RADIOGRAPH (2 VIEW FRONTAL & LATERAL) CLINICAL HISTORY: COPD with exacerbation (HCC) MQ: XC2_6 EXAM DATE/TIME: 11/07/2024 3:16 PM COMPARISON: Chest x-ray of 08/10/2024 RESULT: Lines, tubes, and devices: None. Lungs and pleura: No consolidation. No lung mass. No pleural effusion. No pneumothorax. Cardiomediastinal silhouette: Normal cardiomediastinal silhouette. Bones and soft tissues: Unremarkable. DIVISION OF RADIOLOGY Provider, [facility] - 11/07/2024 * * *Final Report* * * DATE OF EXAM: Nov 07 2024 3:16PM WOX [id number] - XR CHEST 2V FRONTAL/LAT / PROCEDURE REASON: COPD with exacerbation (HCC) * * * * Physician Interpretation * * * * EXAMINATION: CHEST RADIOGRAPH (2 VIEW FRONTAL & LATERAL) CLINICAL HISTORY: COPD with exacerbation (HCC) MQ: XC2_6 EXAM DATE/TIME: 11/07/2024 3:16 PM COMPARISON: Chest x-ray of 08/10/2024 RESULT: Lines, tubes, and devices: None. Lungs and pleura: No consolidation. No lung mass. No pleural effusion. No pneumothorax. Cardiomediastinal silhouette: Normal cardiomediastinal silhouette. Bones and soft tissues: Unremarkable. IMPRESSION IMPRESSION: No acute radiographic abnormality. Advanced Practice Nurse Psychotherapist: [facility] Transcribe Date/Time: Nov 07 2024 4:49P Dictated by : EDUARDO MTATHEWS MD This examination was interpreted and the report reviewed and electronically signed by: EDUARDO MATTHEWS MD on Nov 07 2024 4:49PM EST [facility] Radiology Study observation (narrative) [facility] back [facility] XR Chest PA and LateralOrder ed By: [facility] Provider on 11-07-2024 [facility] CNPNon 08-31-2024 IGORN Telephone (CONSTANTINEWS) GRACIE BANUELOS ([id number]) 1965 F Date Time Provider Department 08/31/24 SOILA EASTON During your visit today, we recorded the following information about you: Soila Easton APRN.CNP 08/31/2024 7:33 AM Signed Signs of chronic pancreatitis. When was the last time she saw GI? If over a year I will place a consult order. Who has she seen in the past? Thank you Soila Easton APRN.Eileen Lai MA 08/31/2024 10:19 AM Signed Left message for return call. Eva Martines RN 09/01/2024 4:17 PM Signed Patient notified of results and provider's instructions. Patient verbalizes understanding. Patient states that she doesn't think she has ever seen a GI doctor. SARWAT Dias Joy, APRN.CNP 09/02/2024 7:16 AM Signed Our records show she was seeing Dr. Odonnell and last seen in 2021 with a recommendation of a follow up in 6 months. I am reconsulting her. Thank you Soila Easton APRN.[facility] [facility] Allergies As of Date: 08/31/2024 Noted Allergy Reaction BACTRIM (SULFAMETHOXAZOLE-TRIME TH*11/28/2022 4 - Hives HYDROCODONE 08/02/2020 9 - Itching PENICILLINS 07/07/2006 14 - Other: See Comments Comments: hives VALIUM (DIAZEPAM) 11/02/2013 14 - Other: See Comments Comments: cross reaction with alcohol addiction Date Reviewed: 08/22/2024 Reviewed by: Nadeen Bobby RT(R) - Fully Assessed Reason for Visit: Results [95] Primary Visit Diagnosis:Chronic recurrent pancreatitis (HCC) [K86.1] Other Visit Diagnosis:Alcohol-induc ed chronic pancreatitis (HCC) [K86.0] Order(s):CONSULT TO GASTROENTEROLOGY [9071] Order #: [id number]: 1 FUTURE Prescriptions as of 02/06/2025 - gabapentin (NEURONTIN) 300 mg capsule Take 1 capsule by mouth two times a day for 30 days. - simvastatin (ZOCOR) 20 mg tablet Take 1 tablet by mouth daily at bedtime. - colchicine 0.6 mg tablet Take 2 pills x1 now then take 1 tablet BID until gone - albuterol (PROVENTIL) 2.5 mg /3 mL (0.083 %) nebulizer solution Use 3 mL via nebulizer one time only for 1 dose. Use over 5-15minutes. - ondansetron orally disintegrating (ZOFRAN ODT) 4 mg disintegrating tablet Take 1 tablet by mouth every 6 hours as needed for nausea/vomiting. - pantoprazole DR (PROTONIX) 40 mg tablet Take 1 tablet by mouth once daily. - metoprolol tartrate, short acting, (LOPRESSOR) 25 mg tablet Take 1 tablet by mouth two times a day. - amLODIPine (NORVASC) 5 mg tablet Take 1 tablet by mouth once daily. - hydrOXYzine HCl (ATARAX) 25 mg tablet Take 1 tablet by mouth three times a day as needed for itching/rash. - MUCINEX D MAXIMUM STRENGTH 120-1,200 mg tab ER 12 hr Take 1 tablet by mouth as needed. - Cholecalciferol, Vitamin D3, 50 mcg (2,000 unit) cap Take 1 capsule by mouth once daily. - predniSONE (DELTASONE) 20 mg tablet Take 2 tablets by mouth once daily. - ziprasidone (GEODON) 40 mg capsule Take 1 capsule by mouth at bedtime as needed. - hydrOXYzine pamoate (VISTARIL) 25 mg capsule Take 1 capsule by mouth daily at bedtime. - lisinopril (ZESTRIL) 10 mg tablet Take 1 tablet by mouth once daily. - Benzonatate 200 mg capsule Take 200 mg by mouth three times a day as needed. - Blood Pressure Monitor Home blood pressure monitor - cyclobenzaprine (FLEXERIL) 10 mg tablet Take 1 tablet by mouth twice daily as needed for muscle spasm. - albuterol HFA (VENTOLIN HFA) 90 mcg/actuation inhaler Inhale 2 Puffs as instructed four times daily as needed. - ferrous sulfate (SLOW FE) 140 mg (45 mg iron) TbER Take 1 tablet by mouth twice daily with meals. - mirtazapine (REMERON) [address] Pres[address] Talamantes. - multivitamin tablet Take 1 tablet by mouth once daily. - ARIPiprazole (ABILIFY) 5 mg tablet 5 mg once daily. - OXYGEN, HOME THERAPY, Inhale as instructed as directed. Patient is on 2-3 liters - COMPOUNDED PRESCRIPTION Pulse Oximetry - COMPOUNDED PRESCRIPTION nebulizer supplies (tubing) Problem List As Of Date 08/31/2024 Noted Resolved TOBACCO USE DISORDER [F17.200] 06/29/2008 Anxiety state [F41.1] 10/19/2008 Hyperlipidemia [E78.5] 01/31/2009 Essential Hypertension, Benign [I10] 09/04/2009 Gastroesophageal reflux disease [K21.9] 12/26/2009 01/10/2021 Acute gastritis without mention of hemorrhage [*10/03/2010 01/03/2015 Pancreatitis chronic 05/26/2011 08/27/2017 Chronic obstructive pulmonary disease (HCC) [J4*05/25/2012 Lumbar disc disease with radiculopathy [M51.16] 06/18/2012 Postmenopausal bleeding [N95.0] 12/07/2012 Ovarian cyst, right [N83.201] 12/27/2012 Alcoholic hepatitis without ascites [K70.10] 11/16/2013 Urine, incontinence, stress female [N39.3] 11/24/2014 HPV test positive [[id number]] 11/24/2014 Alcohol dependence in remission (HCC) [F10.21] 07/10/2015 11/02/2018 Pulmonary emphysema (HCC) [J43.9] 11/27/2015 Irritable bowel syndrome with both constipation*08/27/2017 Alcohol use di (more content not included)... Normal [facility] CT ABD/PEL W IVCONon -26-[address] ABD/PEL W IVCON * * *Final Report* * * DATE OF EXAM: Aug 23 2024 9:53AM [facility] 0530 - CT ABD/PEL W IVCON / PROCEDURE REASON: multiple diagnoses * * * * Physician Interpretation * * * * EXAMINATION: CT ABDOMEN AND PELVIS WITH IV CONTRAST CLINICAL HISTORY: Upper abdominal pain and elevated lipase concerning for pancreatitis TECHNIQUE: CT of the abdomen and pelvis was performed using standard technique, scanning from just above the dome of the diaphragm to the upper thighs. Contrast: IV: 100 ml of Omnipaque 350 Oral: 10 ml of Omni 240 10-25ml diluted with water CT Radiation dose: Integrated Dose-length product (DLP) for this visit = 456 mGy*cm. CT Dose Reduction Employed: Automated exposure control(AEC) and iterative recon COMPARISON: CT abdomen pelvis 12/28/2014 FINDINGS: LOWER CHEST: No significant abnormality. HEPATOBILIARY: The liver is normal in appearance. The gallbladder is absent. No biliary ductal dilatation. SPLEEN, PANCREAS, ADRENAL GLANDS: There scattered coarse calcifications throughout the pancreatic uncinate process and pancreatic head. Otherwise, pancreas is normal in appearance with no secondary signs of inflammation seen. Spleen and adrenal glands within normal limits. KIDNEYS, URETERS, BLADDER: Symmetric parenchymal enhancement with no obstructing calculus or hydronephrosis. There is mild cortical thinning of the right kidney. Ureters and bladder within normal limits. UTERUS, ADNEXA: The uterus is unremarkable. No adnexal mass. BOWEL: No evidence of obstruction. PERITONEAL/EXTRAPERITON EAL SPACE: No free air or free fluid. LYMPH NODES: No adenopathy. VASCULAR: Grossly unremarkable. ABDOMINAL WALL: Free of hernias. MUSCULOSKELETAL: No acute osseous abnormality. An intramuscular lipoma of the anterior muscles on the left is partially imaged. IMPRESSION: No imaging evidence of acute pancreatic pathology. There are scattered coarse calcifications throughout the pancreatic head/uncinate process, a finding which can be seen with chronic pancreatitis. Otherwise, no peripancreatic stranding or other secondary signs of inflammation, or other acute finding of the abdomen or pelvis seen. Advanced Practice Nurse Psychotherapist: [facility] Transcribe Date/Time: Aug 25 2024 10:38P Dictated by : YIN HERNANDEZ MD This examination was interpreted and the report reviewed and electronically signed by: YIN HERNANDEZ MD on Aug 25 2024 10:47PM EST [id number] [facility] (INTMWS) GRACIE BANUELOS ([id number]) 1965 F [place] Date Time Provider Department 08/19/24 ANNMARIE ELKINS INTMWS During your visit today, we recorded the following information about you: Maribeth Owen LPN 08/19/2024 11:37 AM Signed Pt called in to reports she is still getting the Lexapro in her packs. I called [facility] and they will pick her packs up today and remove the Lexapro and then deliver back to pt today. Pt notified. Maribeth Owen LPN Allergies As of Date: 08/19/2024 Noted Allergy Reaction BACTRIM (SULFAMETHOXAZOLE-TRIME TH*11/28/2022 4 - Hives HYDROCODONE 08/02/2020 9 - Itching PENICILLINS 07/07/2006 14 - Other: See Comments Comments: hives VALIUM (DIAZEPAM) 11/02/2013 14 - Other: See Comments Comments: cross reaction with alcohol addiction Date Reviewed: 08/15/2024 Reviewed by: Eileen Chavez MA - Fully Assessed Reason for Visit: medication issue [Other] Prescriptions as of 08/19/2024 - LORazepam (ATIVAN) 0.5 mg Take 1 tablet by mouth two times a day for 30 days. - predniSONE (DELTASONE) 20 mg tablet Take 2 tablets by mouth once daily. - doxycycline (VIBRA-TABS) 100 mg tablet Take 1 tablet by mouth two times a day for 10 days. - ondansetron orally disintegrating (ZOFRAN ODT) 4 mg disintegrating tablet Take 1 tablet by mouth every 6 hours as needed for nausea/vomiting. - ziprasidone (GEODON) 40 mg capsule Take 1 capsule by mouth at bedtime as needed. - suvorexant 10 mg tab Take 1 tablet by mouth once daily for 90 days. - amLODIPine (NORVASC) 5 mg tablet Take 1 tablet by mouth once daily. - ugagrn-spubcpps-regodor (CREON 24) 24,000-76,000 -120,000 unit delayed release capsule Take 3 capsules by mouth once daily. - metoprolol tartrate, short acting, (LOPRESSOR) 25 mg tablet Take 1 tablet by mouth two times a day. - hydrOXYzine pamoate (VISTARIL) 25 mg capsule Take 1 capsule by mouth daily at bedtime. - lisinopril (ZESTRIL) 10 mg tablet Take 1 tablet by mouth once daily. - pantoprazole DR (PROTONIX) 40 mg tablet Take 1 tablet by mouth once daily. - simvastatin (ZOCOR) 20 mg tablet Take 1 tablet by mouth daily at bedtime. - Cholecalciferol, Vitamin D3, 50 mcg (2,000 unit) cap Take 1 capsule by mouth once daily. - Benzonatate 200 mg capsule Take 200 mg by mouth three times a day as needed. - MUCINEX D MAXIMUM STRENGTH 120-1,200 mg tab ER 12 hr as needed. - Blood Pressure Monitor Home blood pressure monitor - cyclobenzaprine (FLEXERIL) 10 mg tablet Take 1 tablet by mouth twice daily as needed for muscle spasm. - albuterol HFA (VENTOLIN HFA) 90 mcg/actuation inhaler Inhale 2 Puffs as instructed four times daily as needed. - ferrous sulfate (SLOW FE) 140 mg (45 mg iron) TbER Take 1 tablet by mouth twice daily with meals. - mirtazapine (REMERON) [address] tablet Prescribed by Dr. Talamantes. - multivitamin tablet Take 1 tablet by mouth once daily. - ARIPiprazole (ABILIFY) 5 mg tablet 5 mg once daily. - albuterol (PROVENTIL) 2.5 mg /3 mL (0.083 %) nebulizer solution Use 3 mL via nebulizer one time only for 1 dose. Use over 5-15minutes. - OXYGEN, HOME THERAPY, Inhale as instructed as directed. Patient is on 2-3 liters - COMPOUNDED PRESCRIPTION Pulse Oximetry - COMPOUNDED PRESCRIPTION nebulizer supplies (tubing) Problem List As Of Date 08/19/2024 Noted Resolved TOBACCO USE DISORDER [F17.200] 06/29/2008 Anxiety state [F41.1] 10/19/2008 Hyperlipidemia [E78.5] 01/31/2009 Essential Hypertension, Benign [I10] 09/04/2009 Gastroesophageal reflux disease [K21.9] 12/26/2009 01/10/2021 Acute gastritis without mention of hemorrhage [*10/03/2010 01/03/2015 Pancreatitis chronic 05/26/2011 08/27/2017 Chronic obstructive pulmonary disease (HCC) [J4*05/25/2012 Lumbar disc disease with radiculopathy [M51.16] 06/18/2012 Postmenopausal bleeding [N95.0] 12/07/2012 Ovarian cyst, right [N83.201] 12/27/2012 Alcoholic hepatitis without ascites [K70.10] 11/16/2013 Urine, incontinence, stress female [N39.3] 11/24/2014 HPV test positive [[id number]] 11/24/2014 Alcohol dependence in remission (HCC) [F10.21] 07/10/2015 11/02/2018 Pulmonary emphysema (HCC) [J43.9] 11/27/2015 Irritable bowel syndrome with both constipation*08/27/2017 Alcohol use disorder, moderate, dependence (HCC*08/27/2017 DDD (degenerative disc disease), cervical [M50.*09/03/2018 Severe protein-calorie malnutrition (HCC) [E43] 01/07/2019 12/26/2022 Chronic recurrent pancreatitis (HCC) [K86.1] 01/07/2019 Reactive depression [F32.9] 04/28/2019 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 chronic pancreatitis (HCC) [K86*07/26/2019 Moderate episode of recurrent major depressive *09/01/2020 History of colonic polyps [Z86.0100] 01/10/2021 01/10/2021 Abdominal bloating [R14.0] 01/10/2021 01/10/2021 Encounter Status:Closed by MARIBETH OWEN on 08/19/24 Normal [facility] CNOVon 08-15-2024 CNOV Office Visit (INTMWS ) GRACIE BANUELOS ([id number]) 1965 [address] Date Time Provider Department 08/15/24 11:40 AM OLDERSOILA INTDILSHAD During your visit today, we recorded the following information about you: Pulse Respiration Blood pressure Weight 80/minute 16/minute 112/78 64.4 kg Soila Easton APRN.DAYTIME CAREGIVER 08/15/2024 12:40 PM Signed CC: Patient presents with: Recheck: Follow up SOB HPI Gracieterrance Banuelos is a 59 year old female who presents today for follow up on COPD exacerbation. Was seen 4 days ago with decreased oxygen saturation and shortness of breath. Started on doxycycline and prednisone. And instructed to start wearing her oxygen as she had at home. CXR did not show any infection. Finished prednisone and using antibiotic as ordered. Feeling much better at this time. Using oxygen at 2L continuously with no issues in keeping saturation up. Cough wheezing and shortness of breath all improving. Goes to [place] [facility] with next routine exam in September. Denies fever, chills, or chest pain. Does have start of yeast infection as she usually does with being on an antibiotic. Was also with some upper abdominal pain and nausea that she had ongoing for quite a while. History of alcoholic pancreatitis along with alcoholic cirrhosis. Has not been seen by GI in over a year. Last drink was 5 days ago and only 2 small cans of beer. Tries to keep it at a minimum. Lipase was slightly elevated this last time. Still with the upper abdominal pain, bloating, and nausea. Denies any vomiting or bowel changes. REVIEW OF SYSTEMS General: no fevers, no chills, no night sweats, no recurrent infections, no change in appetite, no change in energy, and no significant changes in weight Respiratory: no cough, no wheezing, no shortness of breath, no hemoptysis Cardiovascular: no chest pain, no chest pressure, no palpitations, and no swelling PAST MEDICAL HISTORY Diagnosis Date Acute exacerbation of chronic obstructive airways disease (HCC) Alcohol dependence in remission ([facility]) 07/10/2015 Alcohol use disorder 08/27/2017 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 pancreatitis Alcoholic hepatitis 05/18/2012 Alcoholic liver disease ([facility]) 11/16/2013 Anemia Anxiety with depression Asthma Chronic hypoxemic respiratory failure (HCC) COPD (chronic obstructive pulmonary disease) ([facility]) 05/25/2012 DDD (degenerative disc disease), cervical 09/03/2018 Diaphragmatic hernia without mention of obstruction or gangrene Diarrhea Diverticulosis GERD (gastroesophageal reflux disease) Hemorrhoids HLD (hyperlipidemia) HTN (hypertension) Human papillomavirus in conditions classified elsewhere and of unspecified site Irritable bowel syndrome with both constipation and diarrhea 08/27/2017 Lumbar disc disease with radiculopathy 06/18/2012 Other and unspecified alcohol dependence, unspecified drinking behavior Ovarian cyst, right 12/27/2012 Pancreatitis chronic 05/26/2011 Pneumonia of both lungs due to infectious organism 2017 Severe protein-calorie malnutrition ([facility]) 01/07/2019 Stage 3 severe COPD by GOLD classification ([facility]) 2018 Tobacco use greater than 30 years Unspecified hemorrhoids without mention of complication Urine, incontinence, stress female 11/24/2014 PAST SURGICAL HISTORY Procedure Laterality Date APPENDECTOMY at age 14 COLONOSCOPY 04/15/[address], [address] Paul Perez. COLONOSCOPY 01/23/2015 2-Tubular adenomas. Dr. Víctor Lopez. COLONOSCOPY 07/29/2017 normal COLONOSCOPY - DIAGNOSTIC 01/10/2021 10 yr interval EGD 10/03/[address] Paul Perez. EGD 07/29/2017 mild gastritis, otherwise normal EGD 01/10/2021 EGD EUS 12/05/2019 mild gastritis, chronic pancreatitis with PD stone L'SCOPE CHOLECYSTECTOMY 06/14/2021 TUBAL LIGATION HX 1986 ALLERGIES Bactrim [Sulfamethoxazole-Trime thoprim], Hydrocodone, Penicillins, and Valium [Diazepam] MEDICATIONS predniSONE (DELTASONE) 20 mg tablet Take 2 tablets by mouth once daily. doxycycline (VIBRA-TABS) 100 mg tablet Take 1 tablet by mouth two times a day for 10 days. ondansetron orally disintegrating (ZOFRAN ODT) 4 mg disintegrating tablet Take 1 tablet by mouth every 6 hours as needed for nausea/vomiting. ziprasidone (GEODON) 40 mg capsule Take 1 capsule by mouth at bedtime as needed. suvorexant 10 mg tab Take 1 tablet by mouth once daily for 90 days. amLODIPine (NORVASC) 5 mg tablet Take 1 tablet by mouth once daily. irswzs-jthzuuae-cvhpsue (CREON 24) 24,000-76,000 -120,000 unit delayed release capsule Take 3 capsules by mouth once daily. metoprolol tartrate, short acting, (LOPRESSOR) 25 mg tablet Take 1 tablet by mouth two times a day. hydrOXYzine pamoate (VISTARIL) 25 mg capsule Take 1 capsule by mouth daily at bedtime. lisinopril (ZESTRIL) 10 mg tablet Take 1 tablet by mouth once daily. panto (more content not included)... Normal [facility] Amylase SerPl-cCncon 024 Amylase [Catalytic activity/Vol] 104 U/L Normal 30-104 [facility] Comment on above: Order Comment: Speci men Type: BLOOD SPECIMENOrdering Facility: [facility] Address: [address] [place] [address] Performed By: #### 1 798-8, 06940-8, 3040-3 ####[facility] [id number] [place] [address] [place] Comprehensive metabolic 2000 panelon 08-12-2024 Albumin [Mass/Vol] 4.4 g/dL Normal 3.9-4.[address] [facility] Comment on above: Order Comment: Speci men Type: BLOOD SPECIMENOrdering Facility: [facility] Address: [address] [place] [address] Performed By: #### 1 798-8, 91596-9, 3040-3 ####[facility] [id number] [place] [address] [place] ALP [Catalytic activity/Vol] 142 U/L High 34-123 [facility] Comment on above: Order Comment: Speci men Type: BLOOD SPECIMENOrdering Facility: [facility] Address: [address] [place] [address] Performed By: #### 1 798-8, 97001-4, 3040-3 ####[facility] LABCLIA [id number] [address] [address] [place] ALT [Catalytic activity/Vol] 12 U/L Normal 7-38 [facility] Comment on above: Order Comment: Speci men Type: BLOOD SPECIMENOrdering Facility: [facility] Address: [address] [place] [address] Performed By: #### 1 798-8, 63469-0, 0-3 ####[facility] LABCLIA [id number] [place] [address] [place] Anion gap [Moles/Vol] 12 mmol/L Normal 8-15 [facility] Comment on above: Order Comment: Speci men Type: BLOOD SPECIMENOrdering Facility: [facility] Address: [address] [place] [address] Performed By: #### 1 798-8, 68889-2, 0-3 ####[facility] LABCLIA [id number] [place] [address] [place] AST [Catalytic activity/Vol] 15 U/L Normal 13-35 [facility] Comment on above: Order Comment: Speci men Type: BLOOD SPECIMENOrdering Facility: [facility] Address: [address] [place], [place] [address] Performed By: #### 1 798-8, 99425-3, 3040-3 ####[facility] LABCLIA [id number] [place] [id number] [place] Bilirubin [Mass/Vol] 0.2 mg/dL Normal 0.2-1.3 [facility] Comment on above: Order Comment: Speci men Type: BLOOD SPECIMENOrdering Facility: [facility] Address: [address] [place] [address] Performed By: #### 1 798-8, 78018-3, 3040-3 ####[facility] LABCLIA [id number] [address] [address] [place] Calcium [Mass/Vol] 9.6 mg/dL Normal 8.5-10.[address] [facility] Comment on above: Order Comment: Speci men Type: BLOOD SPECIMENOrdering Facility: [facility] Address: [address] [place] [address] Performed By: #### 1 798-8, 04246-1, 3039-3 ####[facility] LABCLIA [id number] [place] [id number] [place] Chloride [Moles/Vol] 97 mmol/L Low 98-107 [facility] Comment on above: Order Comment: Speci men Type: BLOOD SPECIMENOrdering Facility: [facility] Address: [address] [place] [address] Performed By: #### 1 798-8, 34432-3, 3039-3 ####[facility] LABCLIA [id number] [place] [address] [place] CO2 [Moles/Vol] 26 mmol/L Normal 22-30 [facility] Comment on above: Order Comment: Speci men Type: BLOOD SPECIMENOrdering Facility: [facility] Address: [address] [place] [address] Performed By: #### 1 798-8, 18432-1, 3 ####[facility] LABCLIA [id number] [place] [id number] [place] Creatinine [Mass/Vol] 0.82 mg/dL Normal 0.58-0.96 [facility] Comment on above: Order Comment: Speci men Type: BLOOD SPECIMENOrdering Facility: [facility] Address: [address] [place], [place] [address] Performed By: #### 1 798-8, 46899-1, 3039-3 ####[facility] LABCLIA [id number] [place] [address] [place] Creatinine and Glomerular filtration rate.predicted panel (S/P/Bld) 81 mL/min/1.73m??? Normal >=60 [facility] Comment on above: Order Comment: Reggie fajardo Type: BLOOD SPECIMENOrdering Facility: [facility] Address: [address] [place] [address] Result Comment: Pavan mated Glomerular Filtration Rate (eGFR) is calculated using the 2020 CKD-EPI creatinine equation. This equation utilizes serum creatinine, sex, and age as parameters. The creatinine assay has traceable calibration to isotope dilution-mass spectrometry. Refer to KDIGO guidelines for clinical interpretation. In patients with unstable renal function, e.g. those with acute kidney injury, the eGFR may not accurately reflect actual GFR. Performed By: #### 1 798-8, 62496-1, 3040-3 ####[facility] [id number] [place] [address] [place] Glucose [Mass/Vol] 101 mg/dL High 74-[address] [facility] Comment on above: Order Comment: Reggie fajardo Type: BLOOD SPECIMENOrdering Facility: [facility] Address: [address] [place] [address] Result Comment: The [place] Diabetes Association (ADA) provides guidance for cutoff values for fasting glucose and random glucose. The ADA defines fasting as no caloric intake for at least 8 hours. Fasting plasma glucose results between 100 to 125 mg/dL indicate increased risk for diabetes (prediabetes). Fasting plasma glucose results greater than or equal to 126 mg/dL meet the criteria for diagnosis of diabetes. In the absence of unequivocal hyperglycemia, results should be confirmed by repeat testing. In a patient with classic symptoms of hyperglycemia or hyperglycemic crisis, random plasma glucose results greater than or equal to 200 mg/dL meet the criteria for diagnosis of diabetes. Reference: Standards of Medical Care in Diabetes 2016, [place] Diabetes Association. Diabetes Care. 2016.39(Suppl 1). Performed By: #### 1 798-8, 98053-5, 3040-3 ####[facility] [id number] [place] [address] [place] Potassium [Moles/Vol] 4.6 mmol/L Normal 3.7-5.1 [facility] Comment on above: Order Comment: Speci men Type: BLOOD SPECIMENOrdering Facility: [facility] Address: [address] [place] [address] Performed By: #### 1 798-8, 48175-5, 3040-3 ####[facility] LABCLIA [id number] [place] [address] [place] Protein [Mass/Vol] 7.7 g/dL Normal 6.3-8.[address] [facility] Comment on above: Order Comment: Speci men Type: BLOOD SPECIMENOrdering Facility: [facility] Address: [address] [place] [address] Performed By: #### 1 798-8, 21421-5, 0-3 ####[facility] LABCLIA [id number] [place] [address] [place] Sodium [Moles/Vol] 135 mmol/L Low 136-[address] [facility] Comment on above: Order Comment: Speci men Type: BLOOD SPECIMENOrdering Facility: [facility] Address: [address] [place] [address] Performed By: #### 1 798-8, 18263-5, 3040-3 ####[facility] LABCLIA [id number] [place] [address] [place] Urea nitrogen [Mass/Vol] 15 mg/dL Normal 7-21 [facility] Comment on above: Order Comment: Speci men Type: BLOOD SPECIMENOrdering Facility: [facility] Address: [address] [place] [address] Performed By: #### 1 798-8, 49745-1, 3040-3 ####[facility] LABCLIA [id number] [place] [id number] [place] HbA1c (Bld)on 08-12-2024 Average glucose Estimated from glycated hemoglobin (Bld) [Mass/Vol] 131 mg/dL Normal [facility] Comment on above: Order Comment: Reggie fajardo Type: BLOOD SPECIMENOrdering Facility: [facility] Address: [address] [place] [address] Result Comment: eAG: (Estimated average glucose) is a calculated value from HgbA1c and is patient support representative of the average blood glucose level in the last 2-3 month period. Performed By: #### 5 5454-3 ####[facility] LABCLIA [id number] [place] [address] [place] HbA1c (Bld) [Mass fraction] 6.2 % High 4.3-5.6 [facility] Comment on above: Order Comment: Reggie fajardo Type: BLOOD SPECIMENOrdering Facility: [facility] Address: [address] [place] [address] Result Comment: [place] Diabetes Association guidelines indicate that patients with HgbA1c in the range 5.7-6.4% are at increased risk for development of diabetes, and intervention by lifestyle modification may be beneficial. HgbA1c greater or equal to 6.5% is considered diagnostic of diabetes. Performed By: #### 5 5454-3 ####[facility] LABIA [id number] [address] [place] Lipase SerPl-[facility] [place] 08-12-20 24 Lipase [Catalytic activity/Vol] 87 U/L High 16-61 [facility] Comment on above: Order Comment: Reggie fajardo Type: BLOOD SPECIMENOrdering Facility: [facility] Address: [address] [place] [address] Performed By: #### 1 798-8, 69863-6, 3040-3 ####[facility] LABIA [id number] [place] [address] [place] CNPMalou 08-11-2024 CNPN Telephone (INTMWS) GRACIE BANUELOS ([id number]) 1965 [address] [employer] Date Time Provider Department 08/11/24 ANNMARIE ELKINS During your visit today, we recorded the following information about you: Maribeth Owen LPN 08/11/2024 3:21 PM Signed ----- Message from Soila Easton APRN.DAYTIME CAREGIVER sent at 08/11/2024 3:16 PM EST ----- No pneumonia on chest xray. Continue current treatment and upcoming follow up appointment. Thank you Soila Easton APRN.Maribeth Rdz LPN 08/11/2024 3:23 PM Signed .Left a message for pt to call the office and ask to speak to a nurse. MCKENNA Juárez Stephanie, RN 08/11/2024 3:26 PM Signed Patient notified of results and provider's instructions. Patient verbalizes understanding. Eva Martines RN Allergies As of Date: 08/11/2024 Noted Allergy Reaction BACTRIM (SULFAMETHOXAZOLE-TRIME TH*11/28/2022 4 - Hives HYDROCODONE 08/02/2020 9 - Itching PENICILLINS 07/07/2006 14 - Other: See Comments Comments: hives VALIUM (DIAZEPAM) 11/02/2013 14 - Other: See Comments Comments: cross reaction with alcohol addiction Date Reviewed: 08/10/2024 Reviewed by: Eileen Chavez MA - Fully Assessed Reason for Visit: Results [95] Prescriptions as of 08/11/2024 - predniSONE (DELTASONE) 20 mg tablet Take 2 tablets by mouth once daily. - doxycycline (VIBRA-TABS) 100 mg tablet Take 1 tablet by mouth two times a day for 10 days. - ondansetron orally disintegrating (ZOFRAN ODT) 4 mg disintegrating tablet Take 1 tablet by mouth every 6 hours as needed for nausea/vomiting. - ziprasidone (GEODON) 40 mg capsule Take 1 capsule by mouth at bedtime as needed. - suvorexant 10 mg tab Take 1 tablet by mouth once daily for 90 days. - amLODIPine (NORVASC) 5 mg tablet Take 1 tablet by mouth once daily. - wskecw-cqtbmmep-yyyuaka (CREON 24) 24,000-76,000 -120,000 unit delayed release capsule Take 3 capsules by mouth once daily. - metoprolol tartrate, short acting, (LOPRESSOR) 25 mg tablet Take 1 tablet by mouth two times a day. - hydrOXYzine pamoate (VISTARIL) 25 mg capsule Take 1 capsule by mouth daily at bedtime. - lisinopril (ZESTRIL) 10 mg tablet Take 1 tablet by mouth once daily. - pantoprazole DR (PROTONIX) 40 mg tablet Take 1 tablet by mouth once daily. - simvastatin (ZOCOR) 20 mg tablet Take 1 tablet by mouth daily at bedtime. - Cholecalciferol, Vitamin D3, 50 mcg (2,000 unit) cap Take 1 capsule by mouth once daily. - Benzonatate 200 mg capsule Take 200 mg by mouth three times a day as needed. - MUCINEX D MAXIMUM STRENGTH 120-1,200 mg tab ER 12 hr as needed. - Blood Pressure Monitor Home blood pressure monitor - cyclobenzaprine (FLEXERIL) 10 mg tablet Take 1 tablet by mouth twice daily as needed for muscle spasm. - albuterol HFA (VENTOLIN HFA) 90 mcg/actuation inhaler Inhale 2 Puffs as instructed four times daily as needed. - ferrous sulfate (SLOW FE) 140 mg (45 mg iron) TbER Take 1 tablet by mouth twice daily with meals. - mirtazapine (REMERON) [address] Pres[address] Talamantes. - multivitamin tablet Take 1 tablet by mouth once daily. - ARIPiprazole (ABILIFY) 5 mg tablet 5 mg once daily. - albuterol (PROVENTIL) 2.5 mg /3 mL (0.083 %) nebulizer solution Use 3 mL via nebulizer one time only for 1 dose. Use over 5-15minutes. - OXYGEN, HOME THERAPY, Inhale as instructed as directed. Patient is on 2-3 liters - COMPOUNDED PRESCRIPTION Pulse Oximetry - COMPOUNDED PRESCRIPTION nebulizer supplies (tubing) Problem List As Of Date 08/11/2024 Noted Resolved TOBACCO USE DISORDER [F17.200] 06/29/2008 Anxiety state [F41.1] 10/19/2008 Hyperlipidemia [E78.5] 01/31/2009 Essential Hypertension, Benign [I10] 09/04/2009 Gastroesophageal reflux disease [K21.9] 12/26/2009 01/10/2021 Acute gastritis without mention of hemorrhage [*10/03/2010 01/03/2015 Pancreatitis chronic 05/26/2011 08/27/2017 Chronic obstructive pulmonary disease (HCC) [J4*05/25/2012 Lumbar disc disease with radiculopathy [M51.16] 06/18/2012 Postmenopausal bleeding [N95.0] 12/07/2012 Ovarian cyst, right [N83.201] 12/27/2012 Alcoholic hepatitis without ascites [K70.10] 11/16/2013 Urine, incontinence, stress female [N39.3] 11/24/2014 HPV test positive [[id number]] 11/24/2014 Alcohol dependence in remission (HCC) [F10.21] 07/10/2015 11/02/2018 Pulmonary emphysema (HCC) [J43.9] 11/27/2015 Irritable bowel syndrome with both constipation*08/27/2017 Alcohol use disorder, moderate, dependence (HCC*08/27/2017 DDD (degenerative disc disease), cervical [M50.*09/03/2018 Severe protein-calorie malnutrition (HCC) [E43] 01/07/2019 12/26/2022 Chronic recurrent pancreatitis (HCC) [K86.1] 01/07/2019 Reactive depression [F32.9] 04/28/2019 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 chronic pancreatitis (HCC) [K86*07/26/2019 Moderate episode of recurrent major depressive *09/01/2020 History of colonic polyps (more content not included)... Normal [facility] CNOVon 08-10-2024 CNOV Office Visit (INTMWS ) GRACIE BANUELOS ([id number]) 1965 [employer] Date Time Provider Department 08/10/24 5:00 PM SOILA EASTON During your visit today, we recorded the following information about you: Pulse Respiration Blood pressure Weight 96/minute 16/minute 118/80 64.4 kg Soila Easton APRN.CNP 08/10/2024 6:11 PM Signed CC: Patient presents with: Urge Urinary Incontinence: Urinary concerns HPI Gracie Banuelos is a 59 year old female who presents today for increased urinary incontinence. Had some stress incontinence chronically but over the last month has trouble with constant incontinence that she is not able to get to the restroom with increased frequency, and urgency. Lower abdominal cramping that can come and go and gets a a lot of pressure and pain with urination. Also with lower back pain for the past few week with no problem. Also with chronic intermittent abdominal tenderness for years without finding out why. Is having an episode at this time. Also with increase in shortness of breath, cough, wheezing. Has COPD and emphysema and is smoking on average 1 or less then 1ppd. Has to use albuterol with any exertion. Using albuterol inhaler only and not using her nebulizer. Also has home O2 she has not been using but admits to pulse ox dropping into the 80s with exertion and thinks she should start using this. Denies fever, chills, dark urine, malaise, blood in urine, vomiting, chest pain, edema, palpitations, or bowel changes. REVIEW OF SYSTEMS See HPI PAST MEDICAL HISTORY Diagnosis Date Acute exacerbation of chronic obstructive airways disease (HCC) Alcohol dependence in remission (HCC) 07/10/2015 Alcohol use disorder 08/27/2017 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 pancreatitis Alcoholic hepatitis 05/18/2012 Alcoholic liver disease (HCC) 11/16/2013 Anemia Anxiety with depression Asthma Chronic hypoxemic respiratory failure (HCC) COPD (chronic obstructive pulmonary disease) (HCC) 05/25/2012 DDD (degenerative disc disease), cervical 09/03/2018 Diaphragmatic hernia without mention of obstruction or gangrene Diarrhea Diverticulosis GERD (gastroesophageal reflux disease) Hemorrhoids HLD (hyperlipidemia) HTN (hypertension) Human papillomavirus in conditions classified elsewhere and of unspecified site Irritable bowel syndrome with both constipation and diarrhea 08/27/2017 Lumbar disc disease with radiculopathy 06/18/2012 Other and unspecified alcohol dependence, unspecified drinking behavior Ovarian cyst, right 12/27/2012 Pancreatitis chronic 05/26/2011 Pneumonia of both lungs due to infectious organism 2017 Severe protein-calorie malnutrition (HCC) 01/07/2019 Stage 3 severe COPD by GOLD classification ([facility]) 2018 Tobacco use greater than 30 years Unspecified hemorrhoids without mention of complication Urine, incontinence, stress female 11/24/2014 PAST SURGICAL HISTORY Procedure Laterality Date APPENDECTOMY at age 14 COLONOSCOPY 04/15/[address], [address] Paul Perez. COLONOSCOPY 01/23/2015 2-Tubular adenomas. Dr. Víctor Lopez. COLONOSCOPY 07/29/2017 normal COLONOSCOPY - DIAGNOSTIC 01/10/2021 10 yr interval EGD 10/03/[address] Paul Perez. EGD 07/29/2017 mild gastritis, otherwise normal EGD 01/10/2021 EGD EUS 12/05/2019 mild gastritis, chronic pancreatitis with PD stone L'SCOPE CHOLECYSTECTOMY 06/14/2021 TUBAL LIGATION HX 1986 ALLERGIES Bactrim [Sulfamethoxazole-Trime thoprim], Hydrocodone, Penicillins, and Valium [Diazepam] MEDICATIONS ondansetron orally disintegrating (ZOFRAN ODT) 4 mg disintegrating tablet Take 1 tablet by mouth every 6 hours as needed for nausea/vomiting. ziprasidone (GEODON) 40 mg capsule Take 1 capsule by mouth at bedtime as needed. suvorexant 10 mg tab Take 1 tablet by mouth once daily for 90 days. amLODIPine (NORVASC) 5 mg tablet Take 1 tablet by mouth once daily. tnjlzl-rsolphlu-pcukagv (CREON 24) 24,000-76,000 -120,000 unit delayed release capsule Take 3 capsules by mouth once daily. metoprolol tartrate, short acting, (LOPRESSOR) 25 mg tablet Take 1 tablet by mouth two times a day. hydrOXYzine pamoate (VISTARIL) 25 mg capsule Take 1 capsule by mouth daily at bedtime. lisinopril (ZESTRIL) 10 mg tablet Take 1 tablet by mouth once daily. pantoprazole DR (PROTONIX) 40 mg tablet Take 1 tablet by mouth once daily. simvastatin (ZOCOR) 20 mg tablet Take 1 tablet by mouth daily at bedtime. Cholecalciferol, Vitamin D3, 50 mcg (2,000 unit) cap Take 1 capsule by mouth once daily. Benzonatate 200 mg capsule Take 200 mg by mouth three times a day as needed. (Patient not taking: Reported on 08/05/2024) MUCINEX D MAXIMUM STRENGTH 120-1,200 mg tab ER 12 hr as needed. Blood Pressure Monitor Home blood pressure monitor cyclobenzaprine (FLEXERIL) 10 mg tablet Take 1 tablet by m (more content not included)... Normal [facility] 08-10-2024 CNPN Telephone (INTMWS) GRACIE BANUELOS ([id number]) 1965 [employer] Date Time Provider Department 08/10/24 ANNMARIE ELKINS INTMWS During your visit today, we recorded the following information about you: Caroline Miller RN 08/10/2024 1:14 PM Signed ----- Message from Annmarie Elkins MD sent at 08/10/2024 12:44 PM EST ----- Gracie neff while count always tends to be high, We will evaluate that in the next visit. Regards, Caroline Bee MD, SARWAT 08/10/2024 1:29 PM Signed Called and spoke with pt. Notified of Dr. Elkins's information and recommendation. Pt already has a 3 month f/u appt set up for 11/07/24. Added to appt note to discuss elev WBC. While speaking with pt, she c/o leaking urine. States it has been going on quite awhile probably since the last time she had pneumonia. But states the last few weeks it has been worse. She has no control and has difficulty making it to the bathroom. It is so bad, she has to wear Depends and sometimes will even leak through those and have to change her pants. Denies any burning or pain with urination. States does feel some pressure. Pt asking about seeing a kidney specialist. Pt booked for an appt with Soila Easton today at 5 pm. Explained that she will need to give a urine sample to test for a UTI. Allergies As of Date: 08/10/2024 Noted Allergy Reaction BACTRIM (SULFAMETHOXAZOLE-TRIME TH*11/28/2022 4 - Hives HYDROCODONE 08/02/2020 9 - Itching PENICILLINS 07/07/2006 14 - Other: See Comments Comments: hives VALIUM (DIAZEPAM) 11/02/2013 14 - Other: See Comments Comments: cross reaction with alcohol addiction Date Reviewed: 08/05/2024 Reviewed by: Marisela Rico LPN - Fully Assessed Reason for Visit: Results [95] Urinary Problem [252] Prescriptions as of 08/10/2024 - ondansetron orally disintegrating (ZOFRAN ODT) 4 mg disintegrating tablet Take 1 tablet by mouth every 6 hours as needed for nausea/vomiting. - ziprasidone (GEODON) 40 mg capsule Take 1 capsule by mouth at bedtime as needed. - suvorexant 10 mg tab Take 1 tablet by mouth once daily for 90 days. - amLODIPine (NORVASC) 5 mg tablet Take 1 tablet by mouth once daily. - tvaidt-wilwxihc-ostnjyk (CREON 24) 24,000-76,000 -120,000 unit delayed release capsule Take 3 capsules by mouth once daily. - metoprolol tartrate, short acting, (LOPRESSOR) 25 mg tablet Take 1 tablet by mouth two times a day. - hydrOXYzine pamoate (VISTARIL) 25 mg capsule Take 1 capsule by mouth daily at bedtime. - lisinopril (ZESTRIL) 10 mg tablet Take 1 tablet by mouth once daily. - pantoprazole DR (PROTONIX) 40 mg tablet Take 1 tablet by mouth once daily. - simvastatin (ZOCOR) 20 mg tablet Take 1 tablet by mouth daily at bedtime. - Cholecalciferol, Vitamin D3, 50 mcg (2,000 unit) cap Take 1 capsule by mouth once daily. - Benzonatate 200 mg capsule Take 200 mg by mouth three times a day as needed. - MUCINEX D MAXIMUM STRENGTH 120-1,200 mg tab ER 12 hr as needed. - Blood Pressure Monitor Home blood pressure monitor - cyclobenzaprine (FLEXERIL) 10 mg tablet Take 1 tablet by mouth twice daily as needed for muscle spasm. - albuterol HFA (VENTOLIN HFA) 90 mcg/actuation inhaler Inhale 2 Puffs as instructed four times daily as needed. - ferrous sulfate (SLOW FE) 140 mg (45 mg iron) TbER Take 1 tablet by mouth twice daily with meals. - mirtazapine (REMERON) [address] Talamantes. - multivitamin tablet Take 1 tablet by mouth once daily. - ARIPiprazole (ABILIFY) 5 mg tablet 5 mg once daily. - albuterol (PROVENTIL) 2.5 mg /3 mL (0.083 %) nebulizer solution Use 3 mL via nebulizer one time only for 1 dose. Use over 5-15minutes. - OXYGEN, HOME THERAPY, Inhale as instructed as directed. Patient is on 2-3 liters - COMPOUNDED PRESCRIPTION Pulse Oximetry - COMPOUNDED PRESCRIPTION nebulizer supplies (tubing) Problem List As Of Date 08/10/2024 Noted Resolved TOBACCO USE DISORDER [F17.200] 06/29/2008 Anxiety state [F41.1] 10/19/2008 Hyperlipidemia [E78.5] 01/31/2009 Essential Hypertension, Benign [I10] 09/04/2009 Gastroesophageal reflux disease [K21.9] 12/26/2009 01/10/2021 Acute gastritis without mention of hemorrhage [*10/03/2010 01/03/2015 Pancreatitis chronic 05/26/2011 08/27/2017 Chronic obstructive pulmonary disease (HCC) [J4*05/25/2012 Lumbar disc disease with radiculopathy [M51.16] 06/18/2012 Postmenopausal bleeding [N95.0] 12/07/2012 Ovarian cyst, right [N83.201] 12/27/2012 Alcoholic hepatitis without ascites [K70.10] 11/16/2013 Urine, incontinence, stress female [N39.3] 11/24/2014 HPV test positive [LYJ5982] 11/24/2014 Alcohol dependence in remission (HCC) [F10.21] 07/10/2015 11/02/2018 Pulmonary emphysema (HCC) [J43.9] 11/27/2015 Irritable bowel syndrome with both constipation*08/27/2017 Alcohol use disorder, moderate, dependence (HCC*08/27/2017 DDD (de (more content not included)... Normal [facility] UA DIP, URINE (POC)on 2023 BILIRUBIN UA (POCT) Negative Negative [facility] CLARITY UA (POCT) Clear [facility] COLOR UA (POCT) Yellow [facility] GLUCOSE UA (POCT) Negative Negative mg/dL [facility] Hemoglobin Ql (U) Negative Negative [facility] KETONE UA (POCT) Negative Negative mg/dL [facility] LEUKOCYTES UA (POCT) Negative [facility]) Negative Negative [facility] PH UA (POCT) 6.0 4.5 - 8.0 [facility] Protein Ql (U) Negative Negative mg/dL [facility] SPECIFIC GRAVITY UA (POCT) 1.010 1.005 - 1.030 [facility] UROBILINOGEN UA (POCT) 0.2 Regina l E.U./dL [facility] Location:[address], [place], [place], [address] [place] [address] POINT OF CARE [facility] XR CHEST 2V FRONTAL/LATon XR CHEST 2V FRONTAL/LAT * * *Final Repor t* * * DATE OF EXAM: Aug 10 2024 5:47PM [id number] - XR CHEST 2V FRONTAL/LAT / PROCEDURE REASON: multiple diagnoses * * * * Physician Interpretation * * * * EXAMINATION: CHEST RADIOGRAPH (2 VIEW FRONTAL and LATERAL) CLINICAL HISTORY: Shortness of breath Chronic obstructive pulmonary disease with acute exacerbation (HCC) MQ: [id number]_6 EXAM DATE/TIME: 08/10/2024 5:47 PM COMPARISON: 01/25/2024 RESULT: Lines, tubes, and devices: None. Lungs and pleura: No consolidation. No lung mass. No pleural effusion. No pneumothorax. Cardiomediastinal silhouette: Normal cardiomediastinal silhouette. Bones and soft tissues: Unremarkable. IMPRESSION: No acute radiographic abnormality. Advanced Practice Nurse Psychotherapist: PSCB Transcribe Date/Time: Aug 11 2024 2:55P Dictated by : JEAN-CLAUDE MANRIQUEZ MD This examination was interpreted and the report reviewed and electronically signed by: JEAN-CLAUDE MANRIQUEZ MD on Aug 11 2024 2:56PM EST [id number] Normal [facility] CBC W Auto Differential pane l (Bld)on 08-05-2024 Basophils (Bld) [#/Vol] 0.16 10*3/uL High <0.11 [facility] Comment on above: Order Comment: Speci men Type: BLOOD SPECIMENOrdering Facility: [facility] Address: [address] [place] [address] Performed By: #### 5 7021-8 ####[facility] LABCLIA [id number] [place] [address] [place] Basophils/100 WBC (Bld) 1.1 % Normal [facility] Comment on above: Order Comment: Speci men Type: BLOOD SPECIMENOrdering Facility: [facility] Address: [address] [place] [address] Performed By: #### 5 7021-8 ####[facility] LABCLIA [id number] [place] [address] [place] Differential cell count method Nom (Bld) Auto Normal [facility] Comment on above: Order Comment: Speci men Type: BLOOD SPECIMENOrdering Facility: [facility] Address: [address] [place] [address] Performed By: #### 5 7021-8 ####[facility] LABCLIA [id number] [place] [address] [place] Eosinophils (Bld) [#/Vol] 0.39 10*3/uL Normal <0.46 [facility] Comment on above: Order Comment: Speci men Type: BLOOD SPECIMENOrdering Facility: [facility] Address: [address] [place] [address] Performed By: #### 5 7021-8 ####[facility] LABCLIA [id number] [place] [address] [place] Eosinophils/100 WBC (Bld) 2.7 % Normal [facility] Comment on above: Order Comment: Speci men Type: BLOOD SPECIMENOrdering Facility: [facility] Address: [address] [place] [address] Performed By: #### 5 7021-8 ####[facility] LABCLIA [id number] [place] [address] [place] Erythrocyte distribution width (RBC) [Ratio] 15.7 % High 11.5-15.0 [facility] Comment on above: Order Comment: Speci men Type: BLOOD SPECIMENOrdering Facility: [facility] Address: [address] [place] [address] Performed By: #### 5 7021-8 ####[facility] LABIA [id number] [place] [address] [place] Hematocrit (Bld) [Volume fraction] 42.5 % Normal 36.0-46.0 [facility] Comment on above: Order Comment: Speci men Type: BLOOD SPECIMENOrdering Facility: [facility] Address: [address] [place] [address] Performed By: #### 5 7021-8 ####[facility] LABIA [id number] [place] [address] [place] Hemoglobin (Bld) [Mass/Vol] 13.6 g/dL Normal 11.5-15.5 [facility] Comment on above: Order Comment: Speci men Type: BLOOD SPECIMENOrdering Facility: [facility] Address: [address] [place] [address] Performed By: #### 5 7021-8 ####[facility] LABIA [id number] [place] [address] [place] Immature granulocytes (Bld) [#/Vol] 0.12 10*3/uL High <0.10 [facility] Comment on above: Order Comment: Speci men Type: BLOOD SPECIMENOrdering Facility: [facility] Address: [address] [place] [address] Performed By: #### 5 7021-8 ####[facility] LABIA [id number] [place] [address] [place] Immature granulocytes/100 WBC (Bld) 0.8 % Normal [facility] Comment on above: Order Comment: Speci men Type: BLOOD SPECIMENOrdering Facility: [facility] Address: [address] [place] [address] Performed By: #### 5 7021-8 ####[facility] LABCLIA [id number] [place] [address] [place] Lymphocytes (Bld) [#/Vol] 3.77 10*3/uL Normal 1.00-4.00 [facility] Comment on above: Order Comment: Speci men Type: BLOOD SPECIMENOrdering Facility: [facility] Address: [address] [place] [address] Performed By: #### 5 7021-8 ####[facility] LABCLIA [id number] [place] [address] [place] Lymphocytes/100 WBC (Bld) 26.5 % Normal [facility] Comment on above: Order Comment: Speci men Type: BLOOD SPECIMENOrdering Facility: [facility] Address: [address] [place] [address] Performed By: #### 5 7021-8 ####[facility] LABCLIA [id number] [place] [address] [place] MCH (RBC) [Entitic mass] 26.8 pg Normal 26.0-34.0 [facility] Comment on above: Order Comment: Speci men Type: BLOOD SPECIMENOrdering Facility: [facility] Address: [address] [place] [address] Performed By: #### 5 7021-8 ####[facility] LABCLIA [id number] [place] [address] [place] MCHC (RBC) [Mass/Vol] 32.0 g/dL Normal 30.5-36.0 [facility] Comment on above: Order Comment: Speci men Type: BLOOD SPECIMENOrdering Facility: [facility] Address: [address] [place] [address] Performed By: #### 5 7021-8 ####[facility] LABCLIA [id number] [place] [address] [place] MCV (RBC) [Entitic vol] 83.8 fL Normal 80.0-100.0 C [facility] Comment on above: Order Comment: Speci men Type: BLOOD SPECIMENOrdering Facility: [facility] Address: [address] [place] [address] Performed By: #### 5 7021-8 ####[facility] LABCLIA [id number] [place] [address] [place] Monocytes (Bld) [#/Vol] 1.27 10*3/uL High <0.87 [facility] Comment on above: Order Comment: Speci men Type: BLOOD SPECIMENOrdering Facility: [facility] Address: [address] [place] [address] Performed By: #### 5 7021-8 ####[facility] LABCLIA [id number] [place] [address] [place] Monocytes/100 WBC (Bld) 8.9 % Normal [facility] Comment on above: Order Comment: Speci men Type: BLOOD SPECIMENOrdering Facility: [facility] Address: [address] [place] [address] Performed By: #### 5 7021-8 ####[facility] LABCLIA [id number] [place] [address] [place] Neutrophils (Bld) [#/Vol] 8.50 10*3/uL High 1.45-7.50 [facility] Comment on above: Order Comment: Speci men Type: BLOOD SPECIMENOrdering Facility: [facility] Address: [address] [place] [address] Performed By: #### 5 7021-8 ####[facility] LABCLIA [id number] [place] [address] [place] Neutrophils/100 WBC (Bld) 60.0 % Normal [facility] Comment on above: Order Comment: Speci men Type: BLOOD SPECIMENOrdering Facility: [facility] Address: [address] [place] [address] Performed By: #### 5 7021-8 ####[facility] LABCLIA [id number] [place] [address] [place] Nucleated RBC (Bld) [#/Vol] 10*3/uL Normal <0.01 [facility] Comment on above: Order Comment: Speci men Type: BLOOD SPECIMENOrdering Facility: [facility] Address: [address] [place] [address] Performed By: #### 5 7021-8 ####[facility] LABCLIA [id number] [place] [address] [place] Nucleated RBC/100 WBC (Bld) [Ratio] 0.0 /100 WBC Normal [facility] Comment on above: Order Comment: Speci men Type: BLOOD SPECIMENOrdering Facility: [facility] Address: [address] [place] [address] Performed By: #### 5 7021-8 ####[facility] LABCLIA [id number] [place] [address] [place] Platelet mean volume (Bld) [Entitic vol] 10.5 fL Normal 9.0-12.7 [facility] Comment on above: Order Comment: Speci men Type: BLOOD SPECIMENOrdering Facility: [facility] Address: [address] [place] [address] Performed By: #### 5 7021-8 ####[facility] LABCLIA [id number] [place] [address] [place] Platelets (Bld) [#/Vol] 340 10*3/uL Normal 150-400 [facility] Comment on above: Order Comment: Speci men Type: BLOOD SPECIMENOrdering Facility: [facility] Address: [address] [place] [address] Performed By: #### 5 7021-8 ####[facility] LABCLIA [id number] [place] [address] [place] RBC (Bld) [#/Vol] 5.07 10*6/uL Normal 3.90-5.20 [facility] Comment on above: Order Comment: Speci men Type: BLOOD SPECIMENOrdering Facility: [facility] Address: [address] [place] [address] Performed By: #### 5 7021-8 ####[facility] LABIA [id number] [place] [address] [place] WBC (Bld) [#/Vol] 14.21 10*3/uL High 3.70-11.00 [facility] Comment on above: Order Comment: Speci men Type: BLOOD SPECIMENOrdering Facility: [facility] Address: [address] [place] [address] Performed By: #### 5 7021-8 ####[facility] LABIA [id number] [place] [address] [place] CNOVon 08-05-2024 CNOV Office Visit (INTMWS ) GRACIE BANUELOS Salvatore ([id number]) 1965 [employer] Date Time Provider Department 08/05/24 3:40 PM ANNMARIE ELKINS INTMWS During your visit today, we recorded the following information about you: Pulse Blood pressure Weight 91/minute 118/72 65 kg Annmarie Elkins MD 08/05/2024 5:23 PM Signed HPI Gracie is a 59-year-old woman with a past medical history of hypertension, hyperlipidemia, alcohol use disorder with moderate dependence currently only using alcohol twice a month, alcohol hepatitis and pancreatitis, tobacco abuse disorder, pulmonary emphysema, lumbar disc disease with radiculopathy, anxiety and depression. She was admitted to [facility] from 01/01 to 01/04 for pneumonia and COPD exacerbation. She was treated with Solumedrol and IV antibiotics (Rocephin and azithromycin). She was tachycardic and BP was elevated during admission. She was started on HCTZ 12.5 mg daily and Metoprolol 25 mg BID, Norvasc increased to 5 mg daily. Discharged home on prednisone burst with taper, Levaquin, Duoneb, Tessalon Perles and BP medications. Patient reports SOB and cough are much better, at baseline now. Wearing oxygen at home prior to admission, uses as needed. She is still feeling exhausted and gets lightheaded with position changes. BP is low today, she is unable to check at home. Taking all medications as prescribed except she is confused about a couple of the BP meds. Levaquin was completed and has a couple more days left of the prednisone. 05/21: She is here for a follow-up her bp is much well controlled today, she is cutting down her smoking, Is down to a half pack. Has cut down her drinking and is drinking 2 times a month. Advised not to drink at all as she has pancreatitis. Asked her to continue using the Creon. She has been using the Ativan every day 2 times and is only getting Remeron from counseling center. She says she has panic and the Ativan helps but she is not on an SSRI. She is on hydroxyzine. 08/05/24: The patient was started on lexapro in the last visit for anxiety. It made her have nausea, gave her dry heaves and diarrhea for 2 weeks, and it just did not get better. She is on ativan, but we discussed the side effects of it and the link with dementia and that we should try to cut down the medication She is on geodon in the morning and abilify at night. Her main concern is the anxiety and insomnia. Insomnia: she has been having insomnia for the past many years. She goes to bed and wakes up at the same time 10 pm and 4 am . She watches tv just before going to bed. She smokes around 11 pm. She drinks 3 cups of coffee to feel awake. Does a little exercise. She uses oxygen at night time as needed. Review of Systems Constitutional: Positive for fatigue. Negative for chills, diaphoresis, fever and unexpected weight change. HENT: Negative for congestion, postnasal drip, rhinorrhea, sinus pressure, sinus pain and sore throat. Respiratory: Shortness of breath: baseline. Cardiovascular: Negative for chest pain, palpitations and leg swelling. Gastrointestinal: Negative for abdominal pain, diarrhea, nausea and vomiting. Neurological: Positive for light-headedness (positional). Negative for dizziness, syncope, weakness, numbness and headaches. Psychiatric/Behavioral: Negative for confusion. PAST MEDICAL HISTORY Diagnosis Date Acute exacerbation of chronic obstructive airways disease (HCC) Alcohol dependence in remission ([facility]) 07/10/2015 Alcohol use disorder 08/27/2017 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 pancreatitis Alcoholic hepatitis 05/18/2012 Alcoholic liver disease ([facility]) 11/16/2013 Anemia Anxiety with depression Asthma Chronic hypoxemic respiratory failure ([facility]) COPD (chronic obstructive pulmonary disease) ([facility]) 05/25/2012 DDD (degenerative disc disease), cervical 09/03/2018 Diaphragmatic hernia without mention of obstruction or gangrene Diarrhea Diverticulosis GERD (gastroesophageal reflux disease) Hemorrhoids HLD (hyperlipidemia) HTN (hypertension) Human papillomavirus in conditions classified elsewhere and of unspecified site Irritable bowel syndrome with both constipation and diarrhea 08/27/2017 Lumbar disc disease with radiculopathy 06/18/2012 Other and unspecified alcohol dependence, unspecified drinking behavior Ovarian cyst, right 12/27/2012 Pancreatitis chronic 05/26/2011 Pneumonia of both lungs due to infectious organism 2017 Severe protein-calorie malnutrition (HCC) 01/07/2019 Stage 3 severe COPD by GOLD classification ([facility]) 2018 Tobacco use greater than 30 years Unspecified hemorrhoids without mention of complication Urine, incontinence, stress female 11/24/2014 PAST SURGICAL HISTORY Procedure Laterality Date APPENDECTOMY at age 14 COLONOSCOPY 04/15/[address], [address] Paul Perez. COLONOSCOPY 01/23/2015 2-Tubular adenomas. D (more content not included)... Normal [facility] CNCOon 07-13-2024 CNCO Letter Text Normal [facility] CNPNon 06-21-2024 CNPN Telephone (INTWS) GRACIE BANUELOS ([id number]) 1965 [place] Date Time Provider Department 06/21/24 ANNMARIE ELKINS During your visit today, we recorded the following information about you: Larry Hastings MA 06/21/2024 2:33 PM Signed Patient no showed to today's appt. Letter sent. Larry Hastings MA Allergies As of Date: 06/21/2024 Noted Allergy Reaction BACTRIM (SULFAMETHOXAZOLE-TRIME TH*11/28/2022 4 - Hives HYDROCODONE 08/02/2020 9 - Itching PENICILLINS 07/07/2006 14 - Other: See Comments Comments: hives VALIUM (DIAZEPAM) 11/02/2013 14 - Other: See Comments Comments: cross reaction with alcohol addiction Date Reviewed: 05/18/2024 Reviewed by: Larry Hastings MA - Fully Assessed Reason for Visit: No Show [1558] Prescriptions as of 06/21/2024 - LORazepam (ATIVAN) 0.5 mg Take 1 tablet by mouth two times a day for 30 days. - amLODIPine (NORVASC) 5 mg tablet Take 1 tablet by mouth once daily. - ihgqxn-tctdczkp-iyzajbz (CREON 24) 24,000-76,000 -120,000 unit delayed release capsule Take 3 capsules by mouth once daily. - metoprolol tartrate, short acting, (LOPRESSOR) 25 mg tablet Take 1 tablet by mouth two times a day. - escitalopram oxalate (LEXAPRO) 10 mg tablet Take 1 tablet by mouth once daily. Please take half a pill a day for 7days and then go on to a full pill a day - hydrOXYzine pamoate (VISTARIL) 25 mg capsule Take 1 capsule by mouth daily at bedtime. - lisinopril (ZESTRIL) 10 mg tablet Take 1 tablet by mouth once daily. - pantoprazole DR (PROTONIX) 40 mg tablet Take 1 tablet by mouth once daily. - simvastatin (ZOCOR) 20 mg tablet Take 1 tablet by mouth daily at bedtime. - Cholecalciferol, Vitamin D3, 50 mcg (2,000 unit) cap Take 1 capsule by mouth once daily. - ondansetron orally disintegrating (ZOFRAN ODT) 4 mg disintegrating tablet Take 1 tablet by mouth every 6 hours as needed for nausea/vomiting. - Benzonatate 200 mg capsule Take 200 mg by mouth three times a day as needed. - MUCINEX D MAXIMUM STRENGTH 120-1,200 mg tab ER 12 hr TAKE 1 TABLET BY MOUTH EVERY 12 HOURS for cold SYMPTOMS - Blood Pressure Monitor Home blood pressure monitor - cyclobenzaprine (FLEXERIL) 10 mg tablet Take 1 tablet by mouth twice daily as needed for muscle spasm. - albuterol HFA (VENTOLIN HFA) 90 mcg/actuation inhaler Inhale 2 Puffs as instructed four times daily as needed. - ferrous sulfate (SLOW FE) 140 mg (45 mg iron) TbER Take 1 tablet by mouth twice daily with meals. - mirtazapine (REMERON) [address] Dr. Talamantes. - multivitamin tablet Take 1 tablet by mouth once daily. - ARIPiprazole (ABILIFY) 5 mg tablet Take by mouth. - albuterol (PROVENTIL) 2.5 mg /3 mL (0.083 %) nebulizer solution Use 3 mL via nebulizer one time only for 1 dose. Use over 5-15minutes. - OXYGEN, HOME THERAPY, Inhale as instructed as directed. Patient is on 2-3 liters - COMPOUNDED PRESCRIPTION Pulse Oximetry - COMPOUNDED PRESCRIPTION nebulizer supplies (tubing) Problem List As Of Date 06/21/2024 Noted Resolved TOBACCO USE DISORDER [F17.200] 06/29/2008 Anxiety state [F41.1] 10/19/2008 Hyperlipidemia [E78.5] 01/31/2009 Essential Hypertension, Benign [I10] 09/04/2009 Gastroesophageal reflux disease [K21.9] 12/26/2009 01/10/2021 Acute gastritis without mention of hemorrhage [*10/03/2010 01/03/2015 Pancreatitis chronic 05/26/2011 08/27/2017 Chronic obstructive pulmonary disease (HCC) [J4*05/25/2012 Lumbar disc disease with radiculopathy [M51.16] 06/18/2012 Postmenopausal bleeding [N95.0] 12/07/2012 Ovarian cyst, right [N83.201] 12/27/2012 Alcoholic hepatitis without ascites [K70.10] 11/16/2013 Urine, incontinence, stress female [N39.3] 11/24/2014 HPV test positive [[id number]] 11/24/2014 Alcohol dependence in remission (HCC) [F10.21] 07/10/2015 11/02/2018 Pulmonary emphysema (HCC) [J43.9] 11/27/2015 Irritable bowel syndrome with both constipation*08/27/2017 Alcohol use disorder, moderate, dependence (HCC*08/27/2017 DDD (degenerative disc disease), cervical [M50.*09/03/2018 Severe protein-calorie malnutrition (HCC) [E43] 01/07/2019 12/26/2022 Chronic recurrent pancreatitis (HCC) [K86.1] 01/07/2019 Reactive depression [F32.9] 04/28/2019 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 chronic pancreatitis (HCC) [K86*07/26/2019 Moderate episode of recurrent major depressive *09/01/2020 History of colonic polyps [Z86.010] 01/10/2021 01/10/2021 Abdominal bloating [R14.0] 01/10/2021 01/10/2021 Letter Text Encounter Status:Closed by LARRY HASTINGS on 06/21/24 Normal [facility] Emergency Department Summary on 06-02-2024 Emergency Department Summary Normal [facility] Venous Duplex US, Unilateral on 06-02-2024 Venous Duplex US, Unilateral Normal [facility] CNOVon 05-18-2024 CNOV Office Visit (INTMWS ) GRACIE BANUELOS ([id number]) 1965 [place] Date Time Provider Department 05/18/24 4:00 PM ANNMARIE ELKINS INTMWS During your visit today, we recorded the following information about you: Pulse Respiration Blood pressure Weight 76/minute 16/minute 128/72 60.3 kg Annmarie Elkins MD 05/18/2024 5:57 PM Signed HPI Gracie is a 59-year-old woman with a past medical history of hypertension, hyperlipidemia, alcohol use disorder with moderate dependence currently only using alcohol twice a month, alcohol hepatitis and pancreatitis, tobacco abuse disorder, pulmonary emphysema, lumbar disc disease with radiculopathy, anxiety and depression. She was admitted to [facility] from 01/01 to 01/04 for pneumonia and COPD exacerbation. She was treated with Solumedrol and IV antibiotics (Rocephin and azithromycin). She was tachycardic and BP was elevated during admission. She was started on HCTZ 12.5 mg daily and Metoprolol 25 mg BID, Norvasc increased to 5 mg daily. Discharged home on prednisone burst with taper, Levaquin, Duoneb, Tessalon Perles and BP medications. Patient reports SOB and cough are much better, at baseline now. Wearing oxygen at home prior to admission, uses as needed. She is still feeling exhausted and gets lightheaded with position changes. BP is low today, she is unable to check at home. Taking all medications as prescribed except she is confused about a couple of the BP meds. Levaquin was completed and has a couple more days left of the prednisone. 05/21: She is here for a follow-up her bp is much well controlled today, she is cutting down her smoking, Is down to a half pack. Has cut down her drinking and is drinking 2 times a month. Advised not to drink at all as she has pancreatitis. Asked her to continue using the Creon. She has been using the Ativan every day 2 times and is only getting Remeron from counseling center. She says she has panic and the Ativan helps but she is not on an SSRI. She is on hydroxyzine. Review of Systems Constitutional: Positive for fatigue. Negative for chills, diaphoresis, fever and unexpected weight change. HENT: Negative for congestion, postnasal drip, rhinorrhea, sinus pressure, sinus pain and sore throat. Respiratory: Shortness of breath: baseline. Cardiovascular: Negative for chest pain, palpitations and leg swelling. Gastrointestinal: Negative for abdominal pain, diarrhea, nausea and vomiting. Neurological: Positive for light-headedness (positional). Negative for dizziness, syncope, weakness, numbness and headaches. Psychiatric/Behavioral: Negative for confusion. PAST MEDICAL HISTORY No date: Acute exacerbation of chronic obstructive airways disease ([facility]) 07/10/2015: Alcohol dependence in remission ([facility]) 08/27/2017: Alcohol use disorder No date: 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 pancreatitis 05/18/2012: Alcoholic hepatitis 11/16/2013: Alcoholic liver disease ([facility]) No date: Anemia No date: Anxiety with depression No date: Asthma No date: Chronic hypoxemic respiratory failure ([facility]) 05/25/2012: COPD (chronic obstructive pulmonary disease) ([facility]) 09/03/2018: DDD (degenerative disc disease), cervical No date: Diaphragmatic hernia without mention of obstruction or gangrene No date: Diarrhea No date: Diverticulosis No date: GERD (gastroesophageal reflux disease) No date: Hemorrhoids No date: HLD (hyperlipidemia) No date: HTN (hypertension) No date: Human papillomavirus in conditions classified elsewhere and of unspecified site 08/27/2017: Irritable bowel syndrome with both constipation and diarrhea 06/18/2012: Lumbar disc disease with radiculopathy No date: Other and unspecified alcohol dependence, unspecified drinking behavior 12/27/2012: Ovarian cyst, right 05/26/2011: Pancreatitis chronic 2018: Pneumonia of both lungs due to infectious organism 01/07/2019: Severe protein-calorie malnutrition ([facility]) 2018: Stage 3 severe COPD by GOLD classification ([facility]) No date: Tobacco use Comment: greater than 30 years No date: Unspecified hemorrhoids without mention of complication 11/24/2014: Urine, incontinence, stress female PAST SURGICAL HISTORY No date: APPENDECTOMY Comment: at age 14 04/15/2011: COLONOSCOPY Comment: Hemorrhoids, Diverticulosis. Dr. Paul Perez. 01/23/2015: COLONOSCOPY Comment: 2-Tubular adenomas. Dr. Víctor Lopez. 07/29/2017: COLONOSCOPY Comment: normal 01/10/2021: COLONOSCOPY - DIAGNOSTIC Comment: 10 yr interval 10/03/2010: EGD Comment: Duodenal mucosa. Dr. Paul Perez. 07/29/2017: EGD Comment: mild gastritis, otherwise normal 01/10/2021: EGD 12/05/2019: EGD EUS Comment: mild gastritis, chronic pancreatitis with PD stone 06/14/2021: [facility] CHOLECYSTECTOMY Comment: 1987: TUBAL LIGATION HX ALLERGIES Bactrim [Sulfamethoxazole-Trime thoprim], Hydrocodone, Penicillins, and Valium [Di (more content not included)... Normal [facility] Pulmonary Visit Reporton Pulmonary Visit Report Normal [facility] XR Chest PA and Lateralon IMPRESSION: Bibasilar pulmonary infiltrates versus atelectasis. Advanced Practice Nurse Psychotherapist: BABATUNDE Transcribe Date/Time: Jan 27 2024 4:18P Dictated by : CHELA GAMING MD This examination was interpreted and the report reviewed and electronically signed by: CHELA GAMING MD on Jan 27 2024 4:20PM [facility] DIVISION OF RADIOLOGY * * *Final Report* * * DATE OF EXAM: Jan 25 2024 2:13PM WOX [id number] - XR CHEST 2V FRONTAL/LAT / PROCEDURE REASON: multiple diagnoses * * * * Physician Interpretation * * * * EXAMINATION: CHEST RADIOGRAPH (2 VIEW FRONTAL & LATERAL) CLINICAL HISTORY: Pneumonia due to infectious organism, unspecified laterality, unspecified part of lung Acute right ankle pain MQ: XC2_6 EXAM DATE/TIME: 01/25/2024 2:13 PM COMPARISON: Chest x-ray on 11/11/2022 RESULT: Lines, tubes, and devices: None. Lungs and pleura: Bibasilar pulmonary infiltrates versus atelectasis are again noted. The upper lungs are clear. No mass lesion identified. No pleural effusions or pneumothorax. Cardiomediastinal silhouette: Stable cardiac silhouette, with mitral annular calcifications. Bones and soft tissues: The spine shows degenerative changes. DIVISION OF RADIOLOGY Provider, [facility] - 01/27/2024 * * *Final Report* * * DATE OF EXAM: Jan 25 2024 2:13PM WOX [id number] - XR CHEST 2V FRONTAL/LAT / PROCEDURE REASON: multiple diagnoses * * * * Physician Interpretation * * * * EXAMINATION: CHEST RADIOGRAPH (2 VIEW FRONTAL & LATERAL) CLINICAL HISTORY: Pneumonia due to infectious organism, unspecified laterality, unspecified part of lung Acute right ankle pain MQ: XC2_6 EXAM DATE/TIME: 01/25/2024 2:13 PM COMPARISON: Chest x-ray on 11/11/2022 RESULT: Lines, tubes, and devices: None. Lungs and pleura: Bibasilar pulmonary infiltrates versus atelectasis are again noted. The upper lungs are clear. No mass lesion identified. No pleural effusions or pneumothorax. Cardiomediastinal silhouette: Stable cardiac silhouette, with mitral annular calcifications. Bones and soft tissues: The spine shows degenerative changes. IMPRESSION IMPRESSION: Bibasilar pulmonary infiltrates versus atelectasis. Advanced Practice Nurse Psychotherapist: PSCB Transcribe Date/Time: Jan 27 2024 4:18P Dictated by : CHELA GAMING MD This examination was interpreted and the report reviewed and electronically signed by: CHELA GAMING MD on Jan 27 2024 4:20PM EST [facility] XR Chest PA and LateralOrder ed By: [facility] Provider on 01-27-2024 [facility] XR Chest PA and Lateralon Radiology Study observation (narrative) [facility] Absolute lymphocyte countOrd ered By: Bert Greenwood on 01-05-2024 Lymphocytes Auto (Unsp spec) [#/Vol] 3.82 10*3/uL 0.83-4.51 [facility] Basophil percentageOrdered B y: Bert Greenwood on 01-05-2024 Basophil percentage Not Reportable [facility] Chloride [Moles/Vol] 99 mmol/L 98-[address] [facility] Glucose [Mass/Vol] 122 mg/dL 74-106 [facility] Comment on above: Fasting Glucose resu lt from 100 to 125 mg/dL suggests IMPAIRED HOMEOSTASIS per A.D.A. criteria. Hemoglobin (Bld) [Mass/Vol] 13.1 g/dL 12.0-15.0 [facility] Neutrophils (Bld) [#/Vol] 24.7 10*3/uL 2.0-7.7 [facility] Potassium [Moles/Vol] 5.0 mmol/L 3.5-5.1 [facility] Sodium [Moles/Vol] 132 mmol/L 136-145 [facility] WBC (Bld) [#/Vol] 29.4 10*3/uL 4.4-11.0 [facility] Blood band neutrophil count as percentage of total leukocytesOrdered By: Bert Greenwood on 01-05-2024 Band form neutrophils/100 WBC (Bld) 3 % 0-5 [facility] Blood lymphocytes/100 leukoc ytesOrdered By: Bert Greenwood on 01-05-2024 Lymphocytes/100 WBC (Bld) 13 % 19-41 [facility] Blood monocytes/100 leukocyt esOrdered By: Bert Greenwood on 01-05-2024 Monocytes/100 WBC (Bld) 2 % 0-10 [facility] Blood platelet adequacy dete ction by light microscopyOrdered By: Bert Greenwood on 01-05-2024 Platelets LM Ql (Bld) MOD INC ADEQ [facility] Blood segmented neutrophils/ 100 leukocytesOrdered By: Bert Greenwood on 01-05-2024 Segmented neutrophils/100 WBC (Bld) 81 % 47-70 [facility] Determination of erythrocyte mean corpuscular volume (MCV)Ordered By: Bert Greenwood on 01-05-2024 MCV (RBC) [Entitic vol] 83.2 fL 81-99 [facility] Erythrocyte distribution wid th ratioOrdered By: Bert Greenwood on 01-05-2024 Erythrocyte distribution width (RBC) [Ratio] 16.0 % 11.6-14.6 [facility] Erythrocyte distribution wid th standard deviationOrdered By: Bert Greenwood on 01-05-2024 Erythrocyte distribution width (RBC) [Entitic vol] 48.2 fL 35.1-43.9 [facility] Hematocrit Auto (Bld) [Volum e fraction]Ordered By: Bert Greenwood on 01-05-2024 Hematocrit (Bld) [Volume fraction] 42.2 % 37-47 [facility] Laboratory - Chemistry and C hemistry - challengeOrdered By: Bert Greenwood on 01-05-2024 CO2 [Moles/Vol] 26.0 mmol/L 21.0-32.0 [facility] Urea nitrogen/Creatinine [Mass ratio] 28.0 mg/mg 10-20 [facility] Laboratory - Hematology and Cell countsOrdered By: Bert Greenwood on 01-05-2024 MCH (RBC) [Entitic mass] 25.8 pg 27.0-32.0 [facility] MCHC (RBC) [Mass/Vol] 31.0 g/dL 32-36 [facility] Myelocytes/100 WBC (Bld) 1 % 0-0 [facility] Platelet mean volume (Bld) [Entitic vol] 10.1 fL 6.2-12.0 [facility] Platelets (Bld) [#/Vol] 498 10*3/uL 150-450 [facility] No Panel InformationOrdered By: Bert Greenwood on 01-05-2024 Estimated Creatinine Clearance Calc 60.35 ml/min [facility] Estimated GFR (MDRD) Amer 91 mL/min >60 [facility] Comment on above: GFR Calc Estimated GFR (MDRD) Non-Af Amer 75 mL/min >60 [facility] Comment on above: Non- GFR Calc RBC Auto (Bld) [#/Vol]Ordere d By: Bert Greenwood on 01-05-2024 RBC (Bld) [#/Vol] 5.07 10*6/uL 4.2-5.4 [facility] RBC morphologyOrdered By: Cordell Greenwood on 01-05-2024 RBC morphology finding Nom (Bld) NORM C+C NORMAL NORM C&C [facility] Review by pathologistOrdered By: Bert Greenwood on 01-05-2024 Pathologist review Geovany (Unsp spec) [Interp] Tiesha gotti [facility] Pathologist review Geovany (Unsp spec) [Interp] Reviewed [facility] Comment on above: Previous reported re sult: Tiesha gotti Edited by: DESHAWN on 01/06/24:1540Neutrophilic leukocytosis with left shift.Thrombocytosis.Clinical correlation necessary.Javier Best M.D. 01/06/24 AMENDED REPORT 01/06/24 1540 PATH REV previously reported as: Tiesha gotti Serum or plasma calcium esthela urement (mass/volume)Ordered By: Bert Greenwood on 01-05-2024 Calcium [Mass/Vol] 10.5 mg/dL 8.5-10.1 [facility] Serum or plasma creatinine m easurement (mass/volume)Ordered By: Bert Greenwood on 01-05-2024 Creatinine [Mass/Vol] 0.82 mg/dL 0.55-1.02 [facility] Comment on above: The validity of the calculated GFR & GFRAA in patients over 70 years has not been determined. Clinical correlation is essential. Serum or plasma urea nitroge n measurement (mass/volume)Ordered By: Bert Greenwood on 01-05-2024 Urea nitrogen [Mass/Vol] 23 mg/dL 7-18 [facility] Thin prep Papanicolaou smear with manual screeningOrdered By: Bert Greenwood on 01-05-2024 Thin prep Papanicolaou smear with manual screening 7 5-15 [facility] Total cell countOrdered By: Bert Greenwood on 01-05-2024 Cells counted Molgen (Bld/Tiss) [#] 100 MANUAL DIFF [facility] Bacteria identified Respirat ory culture Nom (Unsp spec)Ordered By: Carin Meraz on 01-04-2024 Respiratory Culture Presumptive C albicans [facility] Gram stain for investigation of transfusion reactionOrdered By: Carin Meraz on 01-04-2024 Microscopic observation Gram stain Nom (Unsp spec) [facility] Automated lymphocyte count a s percentage of total leukocytesOrdered By: Carin Meraz on 01-03-2024 Lymphocytes/100 WBC Auto (Unsp spec) 4.0 % 19-41 [facility] Basophil percentageOrdered B y: Carin Kt on 01-03-2024 Basophils/100 WBC (Bld) 0.3 % 0-1 [facility] Bilirubin [Mass/Vol] 0.20 mg/dL 0.20-1.[address] [facility] Comment on above: For patients on eltr ombopag therapy, use of Dimension [place] TBIL is not recommended. Chloride [Moles/Vol] 105 mmol/L 98-[address] [facility] Eosinophils/100 WBC (Bld) 0.2 % 0-5 [facility] Glucose [Mass/Vol] 227 mg/dL 74-106 [facility] Comment on above: Glucose result great er than or equal to 200 mg/dLsuggests DIABETES MELLITUS per A.D.A. criteria. Monocytes/100 WBC (Bld) 2.5 % 0-10 [facility] Potassium [Moles/Vol] 4.3 mmol/L 3.5-5.1 [facility] Protein [Mass/Vol] 7.9 g/dL 6.4-8.2 [facility] Sodium [Moles/Vol] 135 mmol/L 136-145 [facility] Immature granulocytes/100 WB C Auto (Bld)Ordered By: Carin Meraz on 01-03-2024 Immature granulocytes/100 WBC (Bld) 1.700 % 0.0-0.9 [facility] Comment on above: IG% - Immature Granu locytes (promyelocytes, myelocytes and metamyelocytes) > 1% indicates that a LEFT SHIFT is Present. Laboratory - Chemistry and C hemistry - challengeOrdered By: Carin Meraz on 01-03-2024 Albumin/Globulin [Mass ratio] 0.6 {ratio} 0.9-2.4 [facility] ALP [Catalytic activity/Vol] 129 U/L 45-117 [facility] ALT [Catalytic activity/Vol] 12 U/L 13-56 [facility] CO2 [Moles/Vol] 23.0 mmol/L 21.0-32.0 [facility] Globulin (S) [Mass/Vol] 5.0 g/dL 2.2-4.2 [facility] Urea nitrogen/Creatinine [Mass ratio] 14.3 mg/mg 10-20 [facility] Laboratory - Hematology and Cell countsOrdered By: Carin Meraz on 01-03-2024 Nucleated RBC/100 WBC (Bld) [Ratio] 0 % 0-5 [facility] No Panel InformationOrdered By: Carin Meraz on 01-03-2024 Estimated Creatinine Clearance Calc 50.50 ml/min [facility] Estimated GFR (MDRD) Amer 74 mL/min >60 [facility] Comment on above: GFR Calc Estimated GFR (MDRD) Non-Af Amer 61 mL/min >60 [facility] Comment on above: Non- GFR Calc Serum or plasma calcium esthela urement (mass/volume)Ordered By: Carin Meraz on 01-03-2024 Calcium [Mass/Vol] 8.9 mg/dL 8.5-10.1 [facility] Serum or plasma creatinine m easurement (mass/volume)Ordered By: Carin Meraz on 01-03-2024 Creatinine [Mass/Vol] 0.98 mg/dL 0.55-1.02 [facility] Comment on above: The validity of the calculated GFR & GFRAA in patients over 70 years has not been determined. Clinical correlation is essential. Serum or plasma urea nitroge n measurement (mass/volume)Ordered By: Carin Meraz on 01-03-2024 Urea nitrogen [Mass/Vol] 14 mg/dL 7-18 [facility] Thin prep Papanicolaou smear with manual screeningOrdered By: Carin Meraz on 01-03-2024 Thin prep Papanicolaou smear with manual screening 2.9 g/dL 3.2-5.0 [facility] Thin prep Papanicolaou smear with manual screening 12 U/L 15-37 [facility] Thin prep Papanicolaou smear with manual screening 7 5-15 [facility] Absolute lymphocyte countOrd ered By: Víctor Huerta on 01-02-2024 Lymphocytes Auto (Unsp spec) [#/Vol] 2.46 10*3/uL 0.83-4.51 [facility] Activated partial thrombopla stin time (aPTT) in platelet poor plasma by coagulation aOrdered By: Víctor Huerta on 01-02-2024 aPTT Coag (PPP) [Time] 32.2 s 24.1-36.2 [facility] Assessment of wrist artery p atency prior to arterial punctureOrdered By: Víctor Huerta on 01-02-2024 Arterial patency Wrist artery --pre arterial puncture Positive [facility] Automated lymphocyte count a s percentage of total leukocytesOrdered By: Víctor Huerta on 01-02-2024 Lymphocytes/100 WBC Auto (Unsp spec) 9.6 % 19-41 [facility] Base excessOrdered By: Brandon Huerta on 01-02-2024 Base excess Calc (BldV) [Moles/Vol] -4 mmol/L -2-2 [facility] Basophil percentageOrdered B y: Víctor Huerta on 01-02-2024 Lactate [Moles/Vol] 1.2 mmol/L 0.4-2.0 [facility] Basophil percentage 22 mmol/L [facility] Basophils/100 WBC (Bld) 92 % 95-99 [facility] Bilirubin [Mass/Vol] 0.30 mg/dL 0.20-1.[address] [facility] Comment on above: For patients on eltr ombopag therapy, use of Dimension [place] TBIL is not recommended. Protein [Mass/Vol] 8.3 g/dL 6.4-8.2 [facility] Basophils/100 WBC (Bld) 0.4 % 0-1 [facility] Chloride [Moles/Vol] 101 mmol/L 98-[address] [facility] Eosinophils/100 WBC (Bld) 0.6 % 0-5 [facility] Glucose [Mass/Vol] 126 mg/dL 74-106 [facility] Comment on above: Fasting Glucose resu lt greater than or equal to 126 mg/dL suggests DIABETES MELLITUS per A.D.A. criteria. Hemoglobin (Bld) [Mass/Vol] 12.9 g/dL 12.0-15.0 [facility] Monocytes/100 WBC (Bld) 6.9 % 0-10 [facility] Neutrophils (Bld) [#/Vol] 21.0 10*3/uL 2.0-7.7 [facility] Neutrophils/100 WBC (Bld) 81.7 % 47-70 [facility] Potassium [Moles/Vol] 3.9 mmol/L 3.5-5.1 [facility] Sodium [Moles/Vol] 133 mmol/L 136-145 [facility] WBC (Bld) [#/Vol] 25.7 10*3/uL 4.4-11.0 [facility] Blood manual differential co mment interpretation (narrative result)Ordered By: Víctor Huerta on 01-02-2024 Manual differential comment Geovany (Bld) [Interp] SCANNED [facility] Determination of erythrocyte mean corpuscular volume (MCV)Ordered By: Víctor Huerta on 01-02-2024 MCV (RBC) [Entitic vol] 83.2 fL 81-99 [facility] Direct bilirubinOrdered By: Víctor Huerta on 01-02-2024 Bilirubin.direct [Mass/Vol] 0.13 mg/dL 0.00-0.30 [facility] Erythrocyte distribution wid th ratioOrdered By: Víctor Huerta on 01-02-2024 Erythrocyte distribution width (RBC) [Ratio] 15.6 % 11.6-14.6 [facility] Erythrocyte distribution wid th standard deviationOrdered By: Víctor Huerta on 01-02-2024 Erythrocyte distribution width (RBC) [Entitic vol] 47.1 fL 35.1-43.9 [facility] Hematocrit Auto (Bld) [Volum e fraction]Ordered By: Víctor Huerta on 01-02-2024 Hematocrit (Bld) [Volume fraction] 41.5 % 37-47 [facility] Immature granulocytes/100 WB C Auto (Bld)Ordered By: Víctor Huerta on 01-02-2024 Immature granulocytes/100 WBC (Bld) 0.800 % 0.0-0.9 [facility] Comment on above: IG% - Immature Granu locytes (promyelocytes, myelocytes and metamyelocytes) > 1% indicates that a LEFT SHIFT is Present. Laboratory - Chemistry and C hemistry - challengeOrdered By: Víctor Huerta on 01-02-2024 ALP [Catalytic activity/Vol] 148 U/L 45-117 [facility] ALT [Catalytic activity/Vol] 13 U/L 13-56 [facility] Globulin (S) [Mass/Vol] 5.1 g/dL 2.2-4.2 [facility] Natriuretic peptide B (Bld) [Mass/Vol] 75.1 pg/mL 0-100 [facility] CO2 [Moles/Vol] 25.0 mmol/L 21.0-32.0 [facility] Urea nitrogen/Creatinine [Mass ratio] 14.7 mg/mg 10-20 [facility] Laboratory - CoagulationOrde red By: Víctor Heurta on 01-02-2024 INR Coag (Bld) [Relative time] 1.1 {INR} [facility] PT Coag (PPP) [Time] 14.5 s 11.7-14.[address] [facility] Laboratory - Hematology and Cell countsOrdered By: Víctor Huerta on 01-02-2024 MCH (RBC) [Entitic mass] 25.9 pg 27.0-32.0 [facility] MCHC (RBC) [Mass/Vol] 31.1 g/dL 32-36 [facility] Nucleated RBC/100 WBC (Bld) [Ratio] 0 % 0-5 [facility] Platelet mean volume (Bld) [Entitic vol] 9.8 fL 6.2-12.0 [facility] Platelets (Bld) [#/Vol] 311 10*3/uL 150-450 [facility] Laboratory - Microbiology an d Antimicrobial susceptibilityOrdered By: Víctor Huerta on 01-02-2024 Bacteria identified Cx Nom (Bld) No growth in 5 days. [facility] SARS-CoV-2 (COVID-19) RNA KANDY+probe Ql (Unsp spec) [facility] Measurement, pHOrdered By: Tiffani Huerta on 01-02-2024 pH (Unsp spec) 7.42 [pH] 7.35-7.45 [facility] No Panel InformationOrdered By: Víctor Huerta on 01-02-2024 Arterial Blood Partial Pressure CO2 32.2 mmHg 35-45 [facility] Arterial Blood Partial Pressure O2 62 mmHG 75-100 [facility] Blood Gas Bicarbonate Actual 20.7 mmol/L 22-26 [facility] Blood Gas Oxygen Percent 21.0 [facility] Blood Gas Sample Site R Radial [facility] Blood Gas Specimen Type ART [facility] Blood Gas Vent Mode Not entered [facility] Oxygen Delivery Device Room Air [facility] Estimated Creatinine Clearance Calc 51.55 ml/min [facility] Estimated GFR (MDRD) Amer 77 mL/min >60 [facility] Comment on above: GFR Calc Estimated GFR (MDRD) Non-Af Amer 63 mL/min >60 [facility] Comment on above: Non- GFR Calc Troponin I High Sensitivity 13 pg/mL 3.0-54.0 [facility] Comment on above: Please Note: [place] t Units and Gender Specific Reference Ranges. For more information see Policy Stat Procedure [place] High Sensitivity Troponin (TNIH) and attachments. RBC Auto (Bld) [#/Vol]Ordere d By: Víctor Huerta on 01-02-2024 RBC (Bld) [#/Vol] 4.99 10*6/uL 4.2-5.4 [facility] Review by pathologistOrdered By: Víctor Huerta on 01-02-2024 Pathologist review Geovany (Unsp spec) [Interp] May foll [facility] Serum or plasma calcium esthela urement (mass/volume)Ordered By: Víctor Huerta on 01-02-2024 Calcium [Mass/Vol] 8.9 mg/dL 8.5-10.1 [facility] Serum or plasma creatinine m easurement (mass/volume)Ordered By: Víctor Huerta on 01-02-2024 Creatinine [Mass/Vol] 0.96 mg/dL 0.55-1.02 [facility] Comment on above: The validity of the calculated GFR & GFRAA in patients over 70 years has not been determined. Clinical correlation is essential. Serum or plasma urea nitroge n measurement (mass/volume)Ordered By: Víctor Huerta on 01-02-2024 Urea nitrogen [Mass/Vol] 14 mg/dL 7-18 [facility] Serum procalcitonin measurem entOrdered By: Carin Meraz on 01-02-2024 Procalcitonin [Mass/Vol] 0.11 ng/mL 0.00-0.09 [facility] Comment on above: A procalcitonin (PCT ) level above 2.0 ng/mL on the first day of ICU admission is associated with a high risk for progression to severe sepsis and/or septic shock. A PCT level below 0.5 ng/mL on the first day of ICU admission is associated with a low risk for progression to severe and/or septic shock. Note: Concentrations <0.5 ng/mL do not exclude an infection on account of localized infections (without systemic signs) which can be associated with such low concentrations, or a systemic infection in its initial stages (<6 hours). Furthermore, increased procalcitonin can occur without infection. PCT concentrations between 0.5 and 2.0 ng/mL should be interpreted taking into account the patient's history. It is recommended to retest PCT within 6-24 hours if any concentrations <2 ng/mL are obtained. Thin prep Papanicolaou smear with manual screeningOrdered By: Víctor Huerta on 01-02-2024 Thin prep Papanicolaou smear with manual screening 3.2 g/dL 3.2-5.0 [facility] Thin prep Papanicolaou smear with manual screening 14 U/L 15-37 [facility] Thin prep Papanicolaou smear with manual screening 7 5-15 [facility] Influenza virus A and B and SARS-CoV-2 (COVID-19) Ag panel - Upper respiratory specimOrdered By: Tasneem Dykes on 07-08-2023 SARS-CoV-2 (COVID-19) RNA KANDY+probe Ql (Resp) [facility] Absolute lymphocyte countOrd ered By: ED PROVIDER on 06-02-2023 Lymphocytes Auto (Unsp spec) [#/Vol] 2.95 10*3/uL 0.83-4.51 [facility] Basophil percentageOrdered B y: ED PROVIDER on 06-02-2023 Basophils/100 WBC (Bld) 1.0 % 0-1 [facility] Chloride [Moles/Vol] 105 mmol/L 98-[address] [facility] Eosinophils/100 WBC (Bld) 3.6 % 0-5 [facility] Glucose [Mass/Vol] 117 mg/dL 74-106 [facility] Comment on above: Fasting Glucose resu lt from 100 to 125 mg/dL suggests IMPAIRED HOMEOSTASIS per A.D.A. criteria. Neutrophils (Bld) [#/Vol] 7.4 10*3/uL 2.0-7.7 [facility] Neutrophils/100 WBC (Bld) 63.1 % 47-70 [facility] Potassium [Moles/Vol] 4.2 mmol/L 3.5-5.1 [facility] Sodium [Moles/Vol] 141 mmol/L 136-145 [facility] WBC (Bld) [#/Vol] 11.7 10*3/uL 4.4-11.0 [facility] Blood erythrocytes count (nu mber/volume)Ordered By: ED PROVIDER on 06-02-2023 RBC (Bld) [#/Vol] 4.88 10*6/uL 4.2-5.4 [facility] Blood hemoglobin measurement (mass/volume)Ordered By: ED PROVIDER on 06-02-2023 Hemoglobin (Bld) [Mass/Vol] 13.3 g/dL 12.0-15.0 [facility] Blood lymphocytes/100 leukoc ytesOrdered By: ED PROVIDER on 06-02-2023 Lymphocytes/100 WBC (Bld) 25.1 % 19-41 [facility] Blood monocytes/100 leukocyt esOrdered By: ED PROVIDER on 06-02-2023 Monocytes/100 WBC (Bld) 6.4 % 0-10 [facility] Blood platelet mean volumeOr dered By: ED PROVIDER on 06-02-2023 Platelet mean volume (Bld) [Entitic vol] 10.1 fL 6.2-12.0 [facility] Determination of erythrocyte mean corpuscular volume (MCV)Ordered By: ED PROVIDER on 06-02-2023 MCV (RBC) [Entitic vol] 83.2 fL 81-99 [facility] Hematocrit Auto (Bld) [Volum e fraction]Ordered By: ED PROVIDER on 06-02-2023 Hematocrit (Bld) [Volume fraction] 40.6 % 37-47 [facility] Influenza virus A and B and SARS-CoV-2 (COVID-19) Ag panel - Upper respiratory specimOrdered By: Levar Handy on 06-02-2023 SARS-CoV-2 (COVID-19) RNA KANDY+probe Ql (Resp) [facility] Laboratory - Chemistry and C hemistry - challengeOrdered By: ED PROVIDER on 06-02-2023 CO2 [Moles/Vol] 27.0 mmol/L 21.0-32.0 [facility] Urea nitrogen/Creatinine [Mass ratio] 6.9 mg/mg 10-20 [facility] Laboratory - Hematology and Cell countsOrdered By: ED PROVIDER on 06-02-2023 Erythrocyte distribution width (RBC) [Entitic vol] 46.1 fL 35.1-43.9 [facility] Erythrocyte distribution width (RBC) [Ratio] 15.3 % 11.6-14.6 [facility] Immature granulocytes/100 WBC (Bld) 0.800 % 0.0-0.9 [facility] Comment on above: IG% - Immature Granu locytes (promyelocytes, myelocytes and metamyelocytes) > 1% indicates that a LEFT SHIFT is Present. MCH (RBC) [Entitic mass] 27.3 pg 27.0-32.0 [facility] Nucleated RBC/100 WBC (Bld) [Ratio] 0 % 0-5 [facility] MCHC Auto (RBC) [Mass/Vol]Or dered By: ED PROVIDER on 06-02-2023 MCHC (RBC) [Mass/Vol] 32.8 g/dL 32-36 [facility] No Panel InformationOrdered By: ED PROVIDER on 06-02-2023 Estimated Creatinine Clearance Calc 56.88 ml/min [facility] Estimated GFR (MDRD) Amer 86 mL/min >60 [facility] Comment on above: GFR Calc Estimated GFR (MDRD) Non-Af Amer 71 mL/min >60 [facility] Comment on above: Non- GFR Calc Platelets bldOrdered By: ED PROVIDER on 06-02-2023 Platelets (Bld) [#/Vol] 361 10*3/uL 150-450 [facility] Serum or plasma calcium esthela urement (mass/volume)Ordered By: ED PROVIDER on 06-02-2023 Calcium [Mass/Vol] 9.3 mg/dL 8.5-10.1 [facility] Serum or plasma creatinine m easurement (mass/volume)Ordered By: ED PROVIDER on 06-02-2023 Creatinine [Mass/Vol] 0.87 mg/dL 0.55-1.02 [facility] Comment on above: The validity of the calculated GFR & GFRAA in patients over 70 years has not been determined. Clinical correlation is essential. Serum or plasma urea nitroge n measurement (mass/volume)Ordered By: ED PROVIDER on 06-02-2023 Urea nitrogen [Mass/Vol] 6 mg/dL 7-18 [facility] Thin prep Papanicolaou smear with manual screeningOrdered By: ED PROVIDER on 06-02-2023 Thin prep Papanicolaou smear with manual screening 9 5-15 [facility] Ophthalmic Eye [place] 2022 Ophthalmic Eye Exam DOCUMENT REVIEWED BY : Yrn Ortega DOCUMENT SIGNED ELECTRONICALLY BY Yrn Ortega ON 12/23/2022 09:55:17 PM [id number] [place], [address] THIS DOCUMENT WAS CREATED ON: 12/22/2022 02:52:23 PM BY: MARCELLA Hutchinson [id number] Exam Date: Thursday, December 22, 2022 PATIENT NAME: GRACIE BANUELOS DATE: 1965 AGE: 57 GENDER: Female RACE: REFERRING DOCTOR: Alden Jurado History Chief Complaint/Reason For Visit: Problem-Pt sts orbital swelling seen in ED and admission and resolved with antibiotics PT sts has reoccurrance about 3 weeks ago with swelling above right eye and currently on oral prednisone 40mg in AM and 20 mg in night and was on oral antibiotics and seems to be resolving - Dr Jurado in [facility], No Mri done recently Context/Onset-several weeks ago, Location-right eye, HISTORY OF PRESENT ILLNESS: PROBLEM: Pt sts orbital swelling seen in ED and admission and resolved with antibiotics PT sts has reoccurrance about 3 weeks ago with swelling above right eye and currently on oral prednisone 20mg and was on oral antibiotics and seems to be resolving - Dr Jurado in [facility] CONTEXT/ONSET: several weeks ago LOCATION: right eye PAST MEDICAL HISTORY: OCULAR: Orbital cellutis PROCEDURES : No ocular procedures ILLNESSES: History of pancreatitis; History of hypertension SURGERIES: History of Appendectomy; History of Cholecystectomy SOCIAL HISTORY: SMOKING: Current smoker (305.1 F17.200) FAMILY HISTORY: Mother,Father:Family history of No significant family history CURRENT MEDICATIONS: amLODIPine Besylate 10 MG Oral Tablet - Tablet, [Reported] ARIPiprazole TABS - Tablet, [Reported] Creon [id number] UNIT Oral Capsule Delayed Release Particles - Capsule Delayed Release Particles, [Reported] hydrOXYzine HCl - 50 MG Oral Tablet - Tablet, [Reported] Lisinopril 20 MG Oral Tablet - Tablet, [Reported] Meloxicam 15 MG Oral Tablet - Tablet, [Reported] Mirtazapine 30 MG Oral Tablet Disintegrating - Tablet Disintegrating, [Reported] Pantoprazole Sodium 40 MG Oral Tablet Delayed Release - Tablet Delayed Release, [Reported] predniSONE 20 MG Oral Tablet - Tablet, [Reported] Simvastatin 20 MG Oral Tablet - Tablet, [Reported] ALLERGIES: Zosyn REVIEW OF SYSTEMS: All other Review Of Systems negative Exam ORIENTATION, MOOD AND AFFECT: Alert AND oriented x3 RIGHT EYE LEFT EYE UNCORRECTED VA N/A N/A CORRECTED VA 20/20 -2 20/25 +2 CONFRONTATION VF Full to count fingers Full to count fingers EXTERNAL EYE EXAM: LID: Good Position, MRD1 4mm Good Position, MRD1 4mm PUPIL: PERRL/no APD PERRL/no APD ADNEXA: Normal Normal MUSCLE BALANCE: Ortho OCULAR MOTILITY: Full ANTERIOR SEGMENT EXAM: TEARFILM: Good Good CONJUNCTIVA: White and quiet White and quiet CORNEA: Clear Clear ANTERIOR CHAMBER: Deep and quiet Deep and quiet IRIS: Round and reactive Round and reactive LENS: Clear Clear ANTERIOR VITREOUS: Clear Clear FUNDUS EXAM: CUP TO DISC: 0.4 0.4 OPTIC DISC: Breese and sharp Breese and sharp VITREOUS: Clear Clear Impression 1 H05.10 Orbital inflammation-Improving Plan Orbital inflammation H05.10 -patient admitted in early September 2022 for periorbital swelling in right eye, drastically improved after abx start -patient also mentions she had another episode of right upper eyelid swelling 3 weeks ago, she went to PCP and was started on abx pills and Pred 60 with resolution after a week -today VA is excellent, no EOM restriction, full color and normal disc appearance -at this point most likely etiology of prior episode is infectious as it resolved with antibiotics and no need for steroids during prior inpatient admission -However, now somewhat clouded picture with possible recurrence and rapid response to steroid. Has been on 60mg daily for a few weeks. -would recommend slow pred taper at this point to prevent recurrent inflammation. - Previously no localized area to recommend biopsy. Today asymptomatic with normal exam. Recommend taper and monitoring without biopsy. - will inform Dr. Jurado ([facility]) [address] [place], [place] [id number], phone [phone] fax [phone] - consider further imaging if there is another recurrence of swelling f/u 10 weeks Yrn Ortega DOCUMENT CREATE DATE: 12/22/2022 02:52:23 PM Received for:Yrn Ortega MD Dec 23 2022 9:55PM Eastern Standard Time Normal Touchworks XR Lumbar spine 3 Viewson IMPRESSION: Lumbar spine degenerative changes as described above. Advanced Practice Nurse Psychotherapist: BABATUNDE Transcribe Date/Time: Nov 26 2022 2:44P Dictated by : CHELA GAMING MD This examination was interpreted and the report reviewed and electronically signed by: CHELA GAMING MD on Nov 26 2022 2:59PM EST DIVISION OF RADIOLOGY * * *Final Report* * * DATE OF EXAM: Nov 25 2022 11:18AM WOX [id number] - XR LUMBAR 3V AP/LAT/L5-S1 / PROCEDURE REASON: multiple diagnoses * * * * Physician Interpretation * * * * EXAM TITLE: XR LUMBAR 3V AP/LAT/L5-S1 EXAM DATE/TIME: 11/25/2022 11:18 AM COMPARISON: None. CLINICAL INDICATION/HISTORY: Tingling in both lower extremities. TECHNIQUE: AP, lateral and cone down lateral views of the lumbar spine are presented. FINDINGS: There are five [id number]-[id number] lumbar vertebrae. No acute fracture or subluxations are noted. The disc spaces are well preserved. There is minimal osteophyte formation. Kissing spine seen on lateral view. Others: There are vascular calcifications. DIVISION OF RADIOLOGY Provider, [facility] - 11/26/2022 * * *Final Report* * * DATE OF EXAM: Nov 25 2022 11:18AM WOX 5228 - XR LUMBAR 3V AP/LAT/L5-S1 / PROCEDURE REASON: multiple diagnoses * * * * Physician Interpretation * * * * EXAM TITLE: XR LUMBAR 3V AP/LAT/L5-S1 EXAM DATE/TIME: 11/25/2022 11:18 AM COMPARISON: None. CLINICAL INDICATION/HISTORY: Tingling in both lower extremities. TECHNIQUE: AP, lateral and cone down lateral views of the lumbar spine are presented. FINDINGS: There are five [id number] lumbar vertebrae. No acute fracture or subluxations are noted. The disc spaces are well preserved. There is minimal osteophyte formation. Kissing spine seen on lateral view. Others: There are vascular calcifications. IMPRESSION IMPRESSION: Lumbar spine degenerative changes as described above. Advanced Practice Nurse Psychotherapist: PSCB Transcribe Date/Time: Nov 26 2022 2:44P Dictated by : CHELA GAMING MD This examination was interpreted and the report reviewed and electronically signed by: CHELA GAMING MD on Nov 26 2022 2:59PM EST [facility] XR Lumbar spine 3 ViewsOrder ed By: Ccf Provider on 11-26-2022 [facility] XR Lumbar spine 3 Viewson Radiology Study observation (narrative) [facility] XR CHEST 2V FRONTAL/LATon [facility] XR Chest PA and Lateralon IMPRESSION: No acute radiographic abnormality. Advanced Practice Nurse Psychotherapist: BABATUNDE Transcribe Date/Time: Nov 11 2022 10:22P Dictated by : NANETTE OGDEN MD This examination was interpreted and the report reviewed and electronically signed by: NANETTE OGDEN MD on Nov 11 2022 10:23PM [facility] DIVISION OF RADIOLOGY * * *Final Report* * * DATE OF EXAM: Nov 11 2022 4:57PM WOX 5291 - XR CHEST 2V FRONTAL/LAT / PROCEDURE REASON: Chronic obstructive pulmonary disease, unspecified COPD type (HCC) * * * * Physician Interpretation * * * * EXAMINATION: CHEST RADIOGRAPH (2 VIEW FRONTAL & LATERAL) CLINICAL HISTORY: Chronic obstructive pulmonary disease, unspecified COPD type (HCC) MQ: XC2_6 EXAM DATE/TIME: 11/11/2022 4:57 PM COMPARISON: 08/31/2018 RESULT: Lines, tubes, and devices: None. Lungs and pleura: No consolidation. No lung mass. No pleural effusion. No pneumothorax. Cardiomediastinal silhouette: Normal cardiomediastinal silhouette. Bones and soft tissues: Unremarkable. DIVISION OF RADIOLOGY Provider, [facility] - 11/11/2022 * * *Final Report* * * DATE OF EXAM: Nov 11 2022 4:57PM WOX 5291 - XR CHEST 2V FRONTAL/LAT / PROCEDURE REASON: Chronic obstructive pulmonary disease, unspecified COPD type (HCC) * * * * Physician Interpretation * * * * EXAMINATION: CHEST RADIOGRAPH (2 VIEW FRONTAL & LATERAL) CLINICAL HISTORY: Chronic obstructive pulmonary disease, unspecified COPD type (HCC) MQ: XC2_6 EXAM DATE/TIME: 11/11/2022 4:57 PM COMPARISON: 08/31/2018 RESULT: Lines, tubes, and devices: None. Lungs and pleura: No consolidation. No lung mass. No pleural effusion. No pneumothorax. Cardiomediastinal silhouette: Normal cardiomediastinal silhouette. Bones and soft tissues: Unremarkable. IMPRESSION IMPRESSION: No acute radiographic abnormality. Advanced Practice Nurse Psychotherapist: BABATUNDE Transcribe Date/Time: Nov 11 2022 10:22P Dictated by : NANETTE OGDEN MD This examination was interpreted and the report reviewed and electronically signed by: NANETTE OGDEN MD on Nov 11 2022 10:23PM EST [facility] Radiology Study observation (narrative) [facility] XR Chest PA and LateralOrder ed By: Ccf Provider on 11-11-2022 [facility] Absolute lymphocyte countOrd ered By: Dr. Bonilla on 11-07-2022 Lymphocytes Auto (Unsp spec) [#/Vol] 2.70 10*3/uL 0.83-4.51 [facility] Basophil percentageOrdered B y: Dr. Bonilla on 11-07-2022 Basophils/100 WBC (Bld) 0.4 % 0-1 [facility] Chloride [Moles/Vol] 99 mmol/L 98-[address] [facility] Eosinophils/100 WBC (Bld) 4.1 % 0-5 [facility] Glucose [Mass/Vol] 90 mg/dL 74-106 [facility] Neutrophils (Bld) [#/Vol] 8.0 10*3/uL 2.0-7.7 [facility] Neutrophils/100 WBC (Bld) 59.2 % 47-70 [facility] Potassium [Moles/Vol] 3.0 mmol/L 3.5-5.1 [facility] Sodium [Moles/Vol] 141 mmol/L 136-145 [facility] WBC (Bld) [#/Vol] 13.6 10*3/uL 4.4-11.0 [facility] Blood erythrocytes count (nu mber/volume)Ordered By: Dr. Bonilla on 11-07-2022 RBC (Bld) [#/Vol] 3.28 10*6/uL 4.2-5.4 [facility] Blood hemoglobin measurement (mass/volume)Ordered By: Dr. Bonilla on 11-07-2022 Hemoglobin (Bld) [Mass/Vol] 8.8 g/dL 12.0-15.0 [facility] Blood lymphocytes/100 leukoc ytesOrdered By: Dr. Bonilla on 11-07-2022 Lymphocytes/100 WBC (Bld) 19.9 % 19-41 [facility] Blood manual differential co mment interpretation (narrative result)Ordered By: Dr. Bonilla on 11-07-2022 Manual differential comment Geovany (Bld) [Interp] SCANNED [facility] Blood monocytes/100 leukocyt esOrdered By: Dr. Bonilla on 11-07-2022 Monocytes/100 WBC (Bld) 13.8 % 0-10 [facility] Blood platelet mean volumeOr dered By: Dr. Bonilla on 11-07-2022 Platelet mean volume (Bld) [Entitic vol] 9.9 fL 6.2-12.0 [facility] Determination of erythrocyte mean corpuscular volume (MCV)Ordered By: Dr. Bonilla on 11-07-2022 MCV (RBC) [Entitic vol] 83.5 fL 81-99 [facility] Hematocrit Auto (Bld) [Volum e fraction]Ordered By: Dr. Bonilla on 11-07-2022 Hematocrit (Bld) [Volume fraction] 27.4 % 37-47 [facility] Laboratory - Chemistry and C hemistry - challengeOrdered By: Dr. Bonilla on 11-07-2022 CO2 [Moles/Vol] 36.0 mmol/L 21.0-32.0 [facility] Urea nitrogen/Creatinine [Mass ratio] 15.6 mg/mg 10-20 [facility] Laboratory - Hematology and Cell countsOrdered By: Dr. Bonilla on 11-07-2022 Erythrocyte distribution width (RBC) [Entitic vol] 45.4 fL 35.1-43.9 [facility] Erythrocyte distribution width (RBC) [Ratio] 14.8 % 11.6-14.6 [facility] Immature granulocytes/100 WBC (Bld) 2.600 % 0.0-0.9 [facility] Comment on above: IG% - Immature Granu locytes (promyelocytes, myelocytes and metamyelocytes) > 1% indicates that a LEFT SHIFT is Present. MCH (RBC) [Entitic mass] 26.8 pg 27.0-32.0 [facility] Nucleated RBC/100 WBC (Bld) [Ratio] 0 % 0-5 [facility] MCHC Auto (RBC) [Mass/Vol]Or dered By: Dr. Bonilla on 11-07-2022 MCHC (RBC) [Mass/Vol] 32.1 g/dL 32-36 [facility] No Panel InformationOrdered By: Dr. Bonilla on 11-07-2022 Estimated Creatinine Clearance Calc 52.20 ml/min [facility] Estimated GFR (MDRD) Amer 76 mL/min >60 [facility] Comment on above: GFR Calc Estimated GFR (MDRD) Non-Af Amer 63 mL/min >60 [facility] Comment on above: Non- GFR Calc Platelets bldOrdered By: Dr. Bonilla on 11-07-2022 Platelets (Bld) [#/Vol] 395 10*3/uL 150-450 [facility] Review by pathologistOrdered By: Dr. Bonilla on 11-07-2022 Pathologist review Geovany (Unsp spec) [Interp] Reviewed [facility] Comment on above: Previous reported re sult: Tiesha gotti Edited by: RGOOD on 11/07/22:1323Leukocytosis with Neutrophilic left shift. Normocytic anemia.Clinical correlation necessary.Javier Best M.D. 11/07/22 AMENDED REPORT 11/07/22 1323 PATH REV previously reported as: Tiesha gotti Serum or plasma calcium esthela urement (mass/volume)Ordered By: Dr. Bonilla on 11-07-2022 Calcium [Mass/Vol] 8.4 mg/dL 8.5-10.1 [facility] Serum or plasma creatinine m easurement (mass/volume)Ordered By: Dr. Bonilla on 11-07-2022 Creatinine [Mass/Vol] 0.96 mg/dL 0.55-1.02 [facility] Comment on above: The validity of the calculated GFR & GFRAA in patients over 70 years has not been determined. Clinical correlation is essential. Serum or plasma urea nitroge n measurement (mass/volume)Ordered By: Dr. Bonilla on 11-07-2022 Urea nitrogen [Mass/Vol] 15 mg/dL 7-18 [facility] Thin prep Papanicolaou smear with manual screeningOrdered By: Dr. Bonilla on 11-07-2022 Thin prep Papanicolaou smear with manual screening 6 5-15 [facility] Laboratory - Hematology and Cell countsOrdered By: Dr. Bonilla on 11-06-2022 Anisocytosis Ql (Bld) 1+ [facility] Assessment of wrist artery p atency prior to arterial punctureOrdered By: Dr. Bonilla on 11-05-2022 Arterial patency Wrist artery --pre arterial puncture N/A [facility] Base excessOrdered By: Dr. Melchor camargo on 11-05-2022 Base excess Calc (BldV) [Moles/Vol] -10 mmol/L -2-2 [facility] Basophil percentageOrdered B y: Dr. Bnoilla on 11-05-2022 Basophil percentage 17.6 mmol/L 22-[address] [facility] Basophils/100 WBC (Bld) 97 % 95-99 [facility] CO2 (BldA) [Partial pressure ]Ordered By: Dr. Bonilla on 11-05-2022 CO2 (Bld) [Partial pressure] 44.1 mm[Hg] 35-45 [facility] Laboratory - Chemistry and C hemistry - challengeOrdered By: Dr. Sebastian on 11-05-2022 Lipase [Catalytic activity/Vol] 112 U/L 73-393 [facility] Laboratory - CoagulationOrde red By: Dr. Bonilla on 11-05-2022 aPTT Coag (Bld) [Time] 68.4 s 24.1-36.2 [facility] No Panel InformationOrdered By: Dr. Bonilla on 11-05-2022 Bld Gas Crit Called To/Read Back By Yes [facility] Blood Gas Liter Flow 3.0 /min [facility] Blood Gas Notified Whom Dr Sebastian [facility] Blood Gas Sample Site L Radial [facility] Blood Gas Specimen Type ART [facility] Blood Gas Total CO2 19 mmol/L [facility] Oxygen Delivery Device Cannula [facility] Oxygen (BldA) [Partial press ure]Ordered By: Dr. Bonilla on 11-05-2022 Oxygen (Bld) [Partial pressure] 107 mmHG 75-100 [facility] Serum or plasma vancomycin m easurement (mass/volume)Ordered By: Dr. Bonilla on 11-05-2022 Vancomycin [Mass/Vol] 18.2 ug/mL 0.0-15.0 [facility] Comment on above: VANCOMYCIN STANDARD DRUG THERAPY: CRITICAL VALUE IS > 15.0 mg/L VANCOMYCIN HIGH INTENSITY THERAPY: CRITICAL VALUE IS > 20.0 mg/L PLEASE CONTACT PHARMACY SERVICES (#2805) FOR INTERPRETATIONOF RESULTS. THIS RESULT DOES NOT REPRESENT A PEAK OR TROUGHLEVEL FOR THIS DRUG. pH measurementOrdered By: Dr Max Bonilla on 11-05-2022 pH (Unsp spec) 7.21 [pH] 7.35-7.45 [facility] Basophil percentageOrdered B y: Dr. Iverson on 11-04-2022 Basophil percentage 0-5 SEEN /hpf 0-5 [facility] Basophil percentageOrdered B y: Dr. Bonilla on 11-04-2022 Lactate [Moles/Vol] 1.4 mmol/L 0.4-2.0 [facility] Bilirubin Test strip Ql (U)O rdered By: Dr. Iverson on 11-04-2022 Bilirubin Ql (U) Negative Negative [facility] INR in Blood by Coagulation assayOrdered By: Dr. Bonilla on 11-04-2022 INR Coag (Bld) [Relative time] 1.2 {INR} [facility] Ketones Test strip Ql (U)Ord ered By: Dr. Iverson on 11-04-2022 Ketones Ql (U) Negative Negative [facility] Laboratory - CoagulationOrde red By: Dr. Bonilla on 11-04-2022 PT Coag (PPP) [Time] 14.6 s 11.7-14.[address] [facility] Mucus LM Ql (Urine sed)Order ed By: Dr. Iverson on 11-04-2022 Mucus Ql (Urine sed) 0 SEEN /hpf [facility] Nitrite Test strip Ql (U)Ord ered By: Dr. Iverson on 11-04-2022 Nitrite Ql (U) Negative Negative [facility] No Panel InformationOrdered By: Dr. Bonilla on 11-04-2022 Blood Gas Oxygen Percent 30 [facility] Blood Gas Respiration Rate 12 [facility] Urine Urea Nitrogen 302 mg/dL NO RANGE EST. [facility] Protein Test strip Ql (U)Ord ered By: Dr. Iverson on 11-04-2022 Protein Ql (U) 30 mg/dl Negative [facility] Squamous epithelial cells de tection in urine sediment by light microscopyOrdered By: Dr. Iverson on 11-04-2022 Epithelial cells.squamous LM Ql (Urine sed) 0 SEEN /hpf 5-10 [facility] Urine blood detectionOrdered By: Dr. Iverson on 11-04-2022 RBC Ql (U) 150 /ul Negative [facility] RBC Ql (U) 10-25 SEEN /hpf 0-5 [facility] Urine clarityOrdered By: Dr. Iverson on 11-04-2022 Clarity (U) Clear Clear [facility] Urine color determinationOrd ered By: Dr. Iverson on 11-04-2022 Color (U) Yellow Yellow [facility] Urine creatinine measurement (mass/volume)Ordered By: Dr. Bonilla on 11-04-2022 Creatinine (U) [Mass/Vol] 33.40 mg/dL NO RANGE EST. [facility] Urine glucose detectionOrder ed By: Dr. Iverson on 11-04-2022 Glucose Ql (U) 50 mg/dl Normal [facility] Urine leukocyte esterase det ection by dipstickOrdered By: Dr. Iverson on 11-04-2022 Leukocyte esterase Test strip Ql (U) Negative Negative [facility] Urine pHOrdered By: Dr. Feng sanders on 11-04-2022 pH (U) 6.0 [pH] 5.0 - 8.0 [facility] Urine sediment bacteria coun t by microscopy (number/high power field)Ordered By: Dr. Iverson on 11-04-2022 Bacteria LM.HPF (Urine sed) [#/Area] RARE /hpf None Seen [facility] Urine specific gravity measu rementOrdered By: Dr. Iverson on 11-04-2022 Specific gravity (U) [Rel density] 1.015 1.002-1.030 [facility] Urobilinogen Auto test strip Ql (U)Ordered By: Dr. Iverson on 11-04-2022 Urobilinogen Ql (U) Normal mg/dl Normal [facility] Basophil percentageOrdered B y: Dr. Ross on 11-03-2022 Bilirubin [Mass/Vol] 0.20 mg/dL 0.20-1.[address] [facility] Comment on above: For patients on eltr ombopag therapy, use of Dimension [place] TBIL is not recommended. Protein [Mass/Vol] 5.7 g/dL 6.4-8.2 [facility] Laboratory - Chemistry and C hemistry - challengeOrdered By: Dr. Ross on 11-03-2022 ALP [Catalytic activity/Vol] 97 U/L 45-117 [facility] ALT [Catalytic activity/Vol] 31 U/L 13-56 [facility] Globulin (S) [Mass/Vol] 3.5 g/dL 2.2-4.2 [facility] Laboratory - Microbiology an d Antimicrobial susceptibilityOrdered By: Dr. Ross on 11-03-2022 Respiratory pathogens DNA and RNA 12b panel KANDY+probe (Unsp spec) [facility] Serum or plasma albumin esthela urement (mass/volume)Ordered By: Dr. Ross on 11-03-2022 Albumin [Mass/Vol] 2.2 g/dL 3.2-5.0 [facility] Serum or plasma albumin/glob ulin mass ratioOrdered By: Dr. Ross on 11-03-2022 Albumin/Globulin [Mass ratio] 0.6 {ratio} 0.9-2.4 [facility] Thin prep Papanicolaou smear with manual screeningOrdered By: Dr. Ross on 11-03-2022 Thin prep Papanicolaou smear with manual screening 36 U/L 15-37 [facility] No Panel InformationOrdered By: Dr. Ochoa on 11-02-2022 Bedside Blood Gas PEEP 8 [facility] Stool Calprotectin 118 ug/g 0-120 [facility] Comment on above: Concentration Interp retation Follow-Up<16 - 50 ug/g Normal None>50 -120 ug/g Borderline Re-evaluate in 4-6 weeks >120 ug/g Abnormal Repeat as clinically indicated No Panel InformationOrdered By: Dr. Fatima on 11-02-2022 Troponin I High Sensitivity 92 pg/mL 3.0-54.0 [facility] Comment on above: Please Note: [place] t Units and Gender Specific Reference Ranges. For more information see Policy Stat Procedure [place] High Sensitivity Troponin (TNIH) and attachments. Stool pHOrdered By: Dr. Pj smallwood on 11-02-2022 pH (Stl) 6.0 7.0-7.5 [facility] Comment on above: Performed at: [address], [place] [id number] Director: Marvin Quintanilla MD, Phone: [phone] at: CB - [facility] [id number] [place], [place] [id number] Director: Tj Mendoza PhD, Phone: [phone] Chart Updateon 11-01-2022 Chart Update Chart Update Received page to [facility] clinic pager that Pt is calling for internal medicine. Reviewed chart and noted pt was not a [facility] clinic patient but had recently been D/C from [facility]. Attempted to call phone answering service but was unable to connect with the boat garnisher who processed the call for more information. Called pt and informed her that I was a resident with the [facility] clinic and her message was likely sent to me in error, she was concerned that she had not been urinating much recently despite drinking a significant amount of water (estimated 12 12 oz bottles since last night). She further stated she had called her PCP office today regarding this issue and reached an on-call WARNING COORDINATION METEOROLOGIST who recommended she present to the ED for evaluation, which she planned to do. The patient further endorsed dry mouth and constipation (with no BM since day of discharge). She endorsed good appetite and stated she had urinated roughly 4 times overnight and once this morning. She stated she overall felt fine, but was concerned that she hadn't been urinating more. She reported she saw her PCP recently and they made some adjustments to her medications, including restarting her lisinopril. I informed the patient that her safest course of action would be to continue the plan set forth by the other provider she spoke to and present to the ED for evaluation. She was agreeable to this plan. Signatures Electronically signed by : Loc Mike MD PhD; Nov 01 2022 11:56AM EST (Author) [employer] Telephone Encounteron 2022 Employment Interviewer Authentication Interface Message Text Situation: Patient states she was prescribed medication by and medication making her mouth dry (Patient not established with PCP at this time) Background: see above Assessment: Advised patient to reached out to prescribing provider- Recommendation: Verbalized understanding-Provided number to Normal [employer] [facility] ANCA-ASSOCIATED VASCULITIS P ROFILE [ANCA,MPO,PR3]on 10-30-2022 ANCA IFA PATTERN Not detected Normal None Detected [facility] Comment on above: Result Comment: INTE RPRETIVE INFORMATION: ANCA IFA Pattern Neutrophil Cytoplasmic Antibodies (C-ANCA = granular cytoplasmic staining, P-ANCA = perinuclear staining) are found in the serum of over 90 percent of patients with certain necrotizing systemic vasculitides, and usually in less than 5 percent of patients with collagen vascular disease or arthritis. Performed By: [place] [address] Hash Slinger: Kyle Hyatt MD, PhD Performed By: #### A [place] #### [facility] [employer] [address] [place] [address] ANCA IFA TITER <1:20 Normal <1:20 [facility] Comment on above: Performed By: #### A [place] #### [place] [address] MYELOPEROXIDASE AB 0 AU/mL Normal 0-19 [facility] Comment on above: Result Comment: INTE RPRETIVE INFORMATION: Myeloperoxidase Abs, IgG 19 AU/mL or Less ......... Negative 20-25 AU/mL .............. Equivocal 26 AU/mL or Greater ...... Positive Approximately 90% of patients with a P-ANCA pattern by IFA have antibodies specific for MPO. Performed By: #### A [place] #### [address] [address] PROTEINASE-3 0 AU/mL Normal 0-19 [facility] Comment on above: Result Comment: INTE RPRETIVE INFORMATION: Serine Proteinase 3, IgG 19 AU/mL or Less ........ Negative 20-25 AU/mL ............. Equivocal 26 AU/mL or Greater ..... Positive Approximately 85% of patients with a C-ANCA pattern by IFA have antibodies specific for PR3. Performed By: #### A NCMP #### [facility] [employer] [address] [place] [address] Clinical Event Note-Ophthalm ology follow upon 10-29-2022 Clinical Event Note-Ophthalmology follow up Clinical Event: Clinical Event Note: TopicOphthalmology follow up Details Patient seen and examined at bedside. Periorbital swelling has largely subsided and she denies blurry vision, eye pain, itching or burning at this time. Vision is stable and EOM's are now full without double vision. 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 Recommend continuing artificial tears and erythromycin ointment at bedtime after discharge. PO antibiotics per primary/ID. Per medicine team, patient is being discharged home today. She will have follow up with Dr. Ortega (oculoplastics) after discharge. We will call to arrange this follow up. Electronic Signatures: Kyle Daniel (Resident)) (Signed 29-Oct-2022 13:01) Authored: Clinical Event Note Yrn Ortega) (Signed 30-Oct-2022 12:22) Co-Signer: Clinical Event Note Last Updated: 30-Oct-2022 12:22 by Yrn Ortega) Normal [facility] LYSOZYMEon 10-29-2022 LYSOZYME 9.0 ug/mL Normal 2.5-12.9 [facility] Comment on above: Result Comment: Ef fective November 17, 2022 the reference interval for Lysozyme, Serum will be changing to: 0 - 6 months Not Estab. 7 months - 5 years 3.0 - 7.4 6 - 40 years 3.3 - 7.1 41 - 60 years 3.4 - 7.6 61 - 70 years 3.6 - 8.1 71 - 80 years 3.7 - 8.5 >80 years 4.2 - 9.5 Performed By: #### C MP #### [facility] [address] [place] [address] RENAL FUNCTION PANELon 10-29 Albumin [Mass/Vol] 3.8 g/dL Normal 3.4 - 5.0 [facility] Comment on above: Performed By: #### R ENAL #### [facility] [address] [place] [address] Anion gap [Moles/Vol] 15 mmol/L Normal 10 - 20 [facility] Comment on above: Performed By: #### R ENAL #### [facility] [address] [place] [address] Calcium [Mass/Vol] 9.5 mg/dL Normal 8.6 - 10.6 [facility] Comment on above: Performed By: #### R ENAL #### [facility] [address] [place] [address] Chloride [Moles/Vol] 100 mmol/L Normal 98 - 107 [facility] Comment on above: Performed By: #### R ENAL #### [facility] [address] [place] [address] Creatinine [Mass/Vol] 1.40 mg/dL High 0.50 - 1.05 [facility] Comment on above: Performed By: #### R ENAL #### [facility] [address] [place] [address] GFR/1.73 sq M.predicted among non-blacks MDRD (S/P/Bld) [Vol rate/Area] 43 mL/min/{1.73_m2} Abnormal >90 [facility] Comment on above: Result Comment: CALC ULATIONS OF ESTIMATED GFR ARE PERFORMED USING THE 2020 CKD-EPI STUDY REFIT EQUATION WITHOUT THE RACE VARIABLE FOR THE IDMS-TRACEABLE CREATININE METHODS. https://jasn.asnjournals.org/content/early//ASN.2020 073213 Performed By: #### R ENAL #### [facility] [address] [place] [address] Glucose [Mass/Vol] 109 mg/dL High 74 - 99 [facility] Comment on above: Performed By: #### R ENAL #### [facility] [address] [place] [address] HCO3 (Bld) [Moles/Vol] 23 mmol/L Normal 21 - 32 [facility] Comment on above: Performed By: #### R ENAL #### [facility] [address] [place] [address] Phosphate [Mass/Vol] 4.4 mg/dL Normal 2.5 - 4.9 [facility] Comment on above: Result Comment: The performance characteristics of phosphorus testing in heparinized plasma have been validated by the individual laboratory site where testing is performed. Testing on heparinized plasma is not approved by the FDA; however, such approval is not necessary. Performed By: #### R ENAL #### [facility] [address] [place] [address] Potassium [Moles/Vol] 3.4 mmol/L Low 3.5 - 5.3 [facility] Comment on above: Performed By: #### R ENAL #### [facility] [address] [place] [address] Sodium [Moles/Vol] 135 mmol/L Low 136 - 145 [facility] Comment on above: Performed By: #### R ENAL #### [facility] [address] [place] [address] Urea nitrogen [Mass/Vol] 11 mg/dL Normal 6 - 23 [facility] Comment on above: Performed By: #### R ENAL #### [facility] [address] [place] [address] Renal Function Panelon 10-29 Albumin BCP dye [Mass/Vol] 3.8 g/dL 3.4 - 5.0 [facility] Work Phone: Anion gap [Moles/Vol] 15 mmol/L 10 - 20 [facility] Work Phone: Calcium [Mass/Vol] 9.5 mg/dL 8.6 - 10.6 [facility] Work Phone: Chloride [Moles/Vol] 100 mmol/L 98 - 107 [facility] Work Phone: CO2 [Moles/Vol] 23 mmol/L 21 - 32 [facility] Work Phone: Creatinine [Mass/Vol] 1.40 mg/dL above high threshold See Below [facility] Work Phone: Comment on above: Reference Range: 0.5 0 - 1.05 Glucose [Mass/Vol] 109 mg/dL above high threshold 74 - 99 [facility] Work Phone: Phosphate [Mass/Vol] 4.4 mg/dL 2.5 - 4.9 [facility] Work Phone: Comment on above: The performance bruce acteristics of phosphorus testing in heparinized plasma have been validated by the individual laboratory site where testing is performed. Testing on heparinized plasma is not approved by the FDA; however, such approval is not necessary. Potassium [Moles/Vol] 3.4 mmol/L below low threshold 3.5 - 5.3 [facility] Work Phone: Sodium [Moles/Vol] 135 mmol/L below low threshold 136 - 145 [facility] Work Phone: Urea nitrogen [Mass/Vol] 11 mg/dL 6 - 23 [facility] Work Phone: Renal Function Panel 43 {mL/min/1.73m2} Abnormal >90 [facility] Work Phone: Comment on above: CALCULATIONS OF PAVAN MATED GFR ARE PERFORMED USING THE 2020 CKD-EPI STUDY REFIT EQUATION WITHOUT THE RACE VARIABLE FOR THE IDMS-TRACEABLE CREATININE METHODS.https://jasn.asnjournals.org/content/early/ ASN.5995843074 BLOOD CULTURE, BACTERIALon 0 10-28-2022 BLOOD CULTURE, BACTERIAL PATIENT: GRACIE BANUELOS LOCATION: [address]#: [id number] : 61 AGE: SEX: F ORDERED BY: JUSTYN RICHTER SOURCE: Blood COLLECTED: 10/28/22 12:04 ANTIBIOTICS AT DEB.: RECEIVED : 10/28/22 16:14 SITE: PERIPHERAL R E S U L T S BLOOD CULTURE, BACTERIAL FINAL 11/01/22 17:42 No Growth at 1 days No Growth at 2 days No Growth at 3 days NO GROWTH at 4 days - FINAL REPORT Normal [facility] Comment on above: Performed By: #### B LDC #### [facility] [address] [place] [address] BLOOD CULTURE, BACTERIAL PATIENT: GRACIE BANUELOS LOCATION: [address]#: [id number] : 61 AGE: SEX: F ORDERED BY: JUSTYN RICHTER SOURCE: Blood COLLECTED: 10/28/22 12:04 ANTIBIOTICS AT DEB.: RECEIVED : 10/28/22 16:14 SITE: PERIPHERAL R E S U L T S BLOOD CULTURE, BACTERIAL FINAL 11/01/22 17:42 No Growth at 1 days No Growth at 2 days No Growth at 3 days NO GROWTH at 4 days - FINAL REPORT Normal [facility] Comment on above: Performed By: #### C MP #### [facility] [address] [place] [address] CBC AND DIFFERENTIALon 10-28 % AUTOMATED IMMATURE GRAN 0.9 % Normal 0.0 - 0.9 [facility] Comment on above: Result Comment: Iram ture Granulocyte Count (IG) includes promyelocytes, myelocytes and metamyelocytes but does not include bands. Percent differential counts (%) should be interpreted in the context of the absolute cell counts (cells/L). Performed By: #### C BCDF #### [facility] [address] [place] [address] Basophils (Bld) [#/Vol] 0.04 10*3/uL Normal 0.00 - 0.1 0 [facility] Comment on above: Performed By: #### C BCDF #### [facility] [address] [place] [address] Basophils/100 WBC (Bld) 0.5 % Normal 0.0 - 2.0 [facility] Comment on above: Performed By: #### C BCDF #### [facility] [address] [place] [address] Eosinophils (Bld) [#/Vol] 0.45 10*3/uL Normal 0.00 - 0.70 [facility] Comment on above: Performed By: #### C BCDF #### [facility] [address] [place] [address] Eosinophils/100 WBC (Bld) 5.5 % Normal 0.0 - 6.0 [facility] Comment on above: Performed By: #### C BCDF #### [facility] [address] [place] [address] Erythrocyte distribution width (RBC) [Ratio] 13.5 % Normal 11.5 - 14.5 [facility] Comment on above: Performed By: #### C BCDF #### [facility] [address] [place] [address] Hematocrit (Bld) [Volume fraction] 35.2 % Low 36.0 - 46.0 [facility] Comment on above: Performed By: #### C BCDF #### [facility] [address] [place] [address] Hemoglobin (Bld) [Mass/Vol] 11.2 g/dL Low 12.0 - 16.0 [facility] Comment on above: Performed By: #### C BCDF #### [facility] [address] [place] [address] Lymphocytes (Bld) [#/Vol] 0.72 10*3/uL Low 1.20 - 4.80 [facility] Comment on above: Performed By: #### C BCDF #### [facility] [address] [place] [address] Lymphocytes/100 WBC (Bld) 8.7 % Normal 13.0 - 44.0 [facility] Comment on above: Performed By: #### C BCDF #### [facility] [address] [place] [address] MCHC (RBC) [Mass/Vol] 31.8 g/dL Low 32.0 - 36.0 [facility] Comment on above: Performed By: #### C BCDF #### [facility] [address] [place] [address] MCV (RBC) [Entitic vol] 85 fL Normal 80 - 100 [facility] Comment on above: Performed By: #### C BCDF #### [facility] [address] [place] [address] Monocytes (Bld) [#/Vol] 0.72 10*3/uL Normal 0.10 - 1.0 0 [facility] Comment on above: Performed By: #### C BCDF #### [facility] [address] [place] [address] Monocytes/100 WBC (Bld) 8.7 % Normal 2.0 - 10.0 [facility] Comment on above: Performed By: #### C BCDF #### [facility] [address] [place] [address] Neutrophils (Bld) [#/Vol] 6.23 10*3/uL Normal 1.20 - 7.70 [facility] Comment on above: Performed By: #### C BCDF #### [facility] [address] [place] [address] Neutrophils/100 WBC (Bld) 75.7 % Normal 40.0 - 80.0 [facility] Comment on above: Performed By: #### C BCDF #### [facility] [address] [place] [address] NUCLEATED RBC 0.0 /100 WBC Normal 0.0-0.0 [facility] Comment on above: Performed By: #### C BCDF #### [facility] [address] [place] [address] Platelets (Bld) [#/Vol] 233 10*3/uL Normal 150 - 450 [facility] Comment on above: Performed By: #### C BCDF #### [facility] [address] [place] [address] RBC 4.15 x10E12/L Normal 4.00 - 5.20 [facility] Comment on above: Performed By: #### C BCDF #### [facility] [address] [place] [address] WBC (Bld) [#/Vol] 8.2 10*3/uL Normal 4.4 - 11.3 [facility] Comment on above: Performed By: #### C BCDF #### [facility] [address] [place] [address] % AUTOMATED IMMATURE GRAN Canceled Normal [facility] Comment on above: Order Comment: TEST CBC AND DIFFERENTIAL WAS CANCELLED, 10/28/2022 16:16 Result Comment: Iram ture Granulocyte Count (IG) includes promyelocytes, myelocytes and metamyelocytes but does not include bands. Percent differential counts (%) should be interpreted in the context of the absolute cell counts (cells/L). Performed By: #### V ANCU #### [facility] [address] [place] [address] % BASOPHIL Canceled Normal [facility] Comment on above: Order Comment: TEST CBC AND DIFFERENTIAL WAS CANCELLED, 10/28/2022 16:16 Performed By: #### V ANCU #### [facility] [address] [place] [address] % EOSINOPHIL Canceled Normal [facility] Comment on above: Order Comment: TEST CBC AND DIFFERENTIAL WAS CANCELLED, 10/28/2022 16:16 Performed By: #### V ANCU #### [facility] [address] [place] [address] % LYMPHOCYTE Canceled Normal [facility] Comment on above: Order Comment: TEST CBC AND DIFFERENTIAL WAS CANCELLED, 10/28/2022 16:16 Performed By: #### V ANCU #### [facility] [address] [place] [address] % MONOCYTE Canceled Normal [facility] Comment on above: Order Comment: TEST CBC AND DIFFERENTIAL WAS CANCELLED, 10/28/2022 16:16 Performed By: #### V ANCU #### [facility] [address] [place] [address] % NEUTROPHIL Canceled Normal [facility] Comment on above: Order Comment: TEST CBC AND DIFFERENTIAL WAS CANCELLED, 10/28/2022 16:16 Performed By: #### V ANCU #### [facility] [address] [place] [address] BASOPHIL Canceled Normal [facility] Comment on above: Order Comment: TEST CBC AND DIFFERENTIAL WAS CANCELLED, 10/28/2022 16:16 Performed By: #### V ANCU #### [facility] [address] [place] [address] DIFFERENTIAL Canceled Normal [facility] Comment on above: Order Comment: TEST CBC AND DIFFERENTIAL WAS CANCELLED, 10/28/2022 16:16 Performed By: #### V ANCU #### [facility] [address] [place] [address] EOSINOPHIL Canceled Normal [facility] Comment on above: Order Comment: TEST CBC AND DIFFERENTIAL WAS CANCELLED, 10/28/2022 16:16 Performed By: #### V ANCU #### [facility] [address] [place] [address] HCT Canceled Normal [facility] Comment on above: Order Comment: TEST CBC AND DIFFERENTIAL WAS CANCELLED, 10/28/2022 16:16 Performed By: #### V ANCU #### [facility] [address] [place] [address] HGB Canceled Normal [facility] Comment on above: Order Comment: TEST CBC AND DIFFERENTIAL WAS CANCELLED, 10/28/2022 16:16 Performed By: #### V ANCU #### [facility] [address] [place] [id number] LYMPHOCYTE Canceled Normal [facility] Comment on above: Order Comment: TEST CBC AND DIFFERENTIAL WAS CANCELLED, 10/28/2022 16:16 Performed By: #### V ANCU #### [facility] [address] [place] [id number] MCHC Canceled Normal [facility] Comment on above: Order Comment: TEST CBC AND DIFFERENTIAL WAS CANCELLED, 10/28/2022 16:16 Performed By: #### V ANCU #### [facility] [address] [place] [address] MCV Canceled Normal [facility] Comment on above: Order Comment: TEST CBC AND DIFFERENTIAL WAS CANCELLED, 10/28/2022 16:16 Performed By: #### V ANCU #### [facility] [address] [place] [address] MONOCYTE Canceled Normal [facility] Comment on above: Order Comment: TEST CBC AND DIFFERENTIAL WAS CANCELLED, 10/28/2022 16:16 Performed By: #### V ANCU #### [facility] [address] [place] [address] NEUTROPHIL Canceled Normal [facility] Comment on above: Order Comment: TEST CBC AND DIFFERENTIAL WAS CANCELLED, 10/28/2022 16:16 Performed By: #### V ANCU #### [facility] [address] [place] [address] NUCLEATED RBC Canceled Normal [facility] Comment on above: Order Comment: TEST CBC AND DIFFERENTIAL WAS CANCELLED, 10/28/2022 16:16 Performed By: #### V ANCU #### [facility] [address] [place] [address] PLT Canceled Normal [facility] Comment on above: Order Comment: TEST CBC AND DIFFERENTIAL WAS CANCELLED, 10/28/2022 16:16 Performed By: #### V ANCU #### [facility] [address] [place] [address] RBC Canceled Normal [facility] Comment on above: Order Comment: TEST CBC AND DIFFERENTIAL WAS CANCELLED, 10/28/2022 16:16 Performed By: #### V ANCU #### [facility] [address] [place] [address] RDW-CV Canceled Normal [facility] Comment on above: Order Comment: TEST CBC AND DIFFERENTIAL WAS CANCELLED, 10/28/2022 16:16 Performed By: #### V ANCU #### [facility] [address] [place] [address] WBC Canceled Normal [facility] Comment on above: Order Comment: TEST CBC AND DIFFERENTIAL WAS CANCELLED, 10/28/2022 16:16 Performed By: #### V ANCU #### [facility] [address] [place] [address] Clinical Note - Pharmacy v2o n 10-28-2022 Clinical Note - Pharmacy v2 Clinical Note - Pharmacy v2: Discharge Meds: Prescription [employer] Medications Home Medications Review Status for Reconciliation: Complete Med Status: Patient Currently Takes Medications Drug Name: oxyCODONE 5 mg oral tablet Instructions: 1 tab(s) orally every 6 hours, As Needed -Pain - Severe (7-10) - G89.1 .ADOD - .10/28 Meds to Beds - . Patient Location [address] [address] Drug Name: Bactrim DS 800 mg-160 mg oral tablet Instructions: 1 tab(s) orally 2 times a day STOP DATE 11/04/22 -.ADOD - .10/28 Meds to Beds .Patient Location [address] [address]26 Drug Name: hydrOXYzine hydrochloride 25 mg oral tablet Instructions: 1 tab(s) orally every 6 hours, As needed, ITCHING -.ADOD - .10/28 Meds to Beds .Patient Location [address] [address]26 Drug Name: loperamide 2 mg oral capsule Instructions: 1 cap(s) orally every 4 hours, As needed, Diarrhea -.ADOD - .10/28 Meds to Beds .Patient Location [address] Medications Deliveredsee above Medications Delivered Topatient; nurse Delivery Date/[id number] 11:43 Controlled Medications Given ToElizabeth Shanae Medications ReviewedReviewed medication timing, indication, and ADR with patient. Education TopicADR counseling; dosage, frequency, storage; medication indication; medication interactions Learnerpatient Barriers to Learningnone Methodverbal Outcome Evaluation2=meets goals/outcomes Allergy: Allergies Summary Allergy Allergen: penicillin Type: Drug Reaction: Hives/Urticaria Electronic Signatures: Aris Pugh ([facility]LY [facility]) (Signed 30-Oct-2022 07:56) Co-Signer: Discharge Meds, Allergy Hollis Archibald ([facility]LY [facility]) (Signed 28-Oct-2022 12:44) Authored: Discharge Meds, Allergy Last Updated: 30-Oct-2022 07:56 by Aris Pugh (FORMERLY [facility]) Normal [facility] Complete Blood Count + Diffe rentialon 10-28-2022 Basophils/100 WBC (Bld) 0.5 % 0.0 - 2.0 M [facility] [employer] Work Phone: Erythrocyte distribution width (RBC) [Ratio] 13.5 % See Below [facility] [employer] Work Phone: Comment on above: Reference Range: 11. 5 - 14.5 Hematocrit (Bld) [Volume fraction] 35.2 % below low threshold See Below [facility] [employer] Work Phone: Comment on above: Reference Range: 36. 0 - 46.0 Hemoglobin (Bld) [Mass/Vol] 11.2 g/dL below low threshold See Below [facility] Work Phone: Comment on above: Reference Range: 12. 0 - 16.0 Lymphocytes/100 WBC (Bld) 8.7 % See Below [facility] Work Phone: Comment on above: Reference Range: 13. 0 - 44.0 MCHC (RBC) [Mass/Vol] 31.8 g/dL below low threshold See Below [facility] Wilfrid [facility] Work Phone: [phone] Comment on above: Reference Range: 32. 0 - 36.0 MCV (RBC) [Entitic vol] 85 fL 80 - 100 M Kusum [facility] Work Phone: [phone] Monocytes/100 WBC (Bld) 8.7 % 2.0 - 10.0 M K[facility] Work Phone: [phone] Neutrophils/100 WBC (Bld) 75.7 % See Below [facility] Work Phone: [phone] Comment on above: Reference Range: 40. 0 - 80.0 Platelets (Bld) [#/Vol] 233 10*3/uL 150 - 450 [facility] Work Phone: [phone] RBC (Bld) [#/Vol] 4.15 {x10E12/L} See Below MG Nathalie [facility] Work Phone: [phone] Comment on above: Reference Range: 4.0 0 - 5.20 WBC (Bld) [#/Vol] 8.2 10*3/uL 4.4 - 11.3 [facility] icine- Wilfrid Gaing Work Phone: [phone] Complete Blood Count + Differential 0.04 {x10E9/L} See Below [facility] Work Phone: [phone] Comment on above: Reference Range: 0.0 0 - 0.10 Complete Blood Count + Differential 0.45 {x10E9/L} See Below [facility] Work Phone: Comment on above: Reference Range: 0.0 0 - 0.70 Complete Blood Count + Differential 0.72 {x10E9/L} below low threshold See Below Moxie JeanUlices [facility]ang Work Phone: Comment on above: Reference Range: 0.1 0 - 1.00 Reference Range: 1.2 0 - 4.80 Complete Blood Count + Differential 6.23 {x10E9/L} See Below Moxie JeanUlices [facility] Work Phone: Comment on above: Reference Range: 1.2 0 - 7.70 Complete Blood Count + Differential 5.5 % 0.0 - 6.0 Jerod [facility] Work Phone: Complete Blood Count + Differential 0.9 % 0.0 - 0.9 [facility] Work Phone: Comment on above: Immature Granulocyte Count (IG) includes promyelocytes, myelocytes and metamyelocytes but does not include bands. Percent differential counts (%) should be interpreted in the context of the absolute cell counts (cells/L). Complete Blood Count + Differential 0.0 {/100_WBC} 0.0-0.0 [facility] Work Phone: Cult, Bloodon 10-28-2022 Bacteria identified Cx Nom (Bld) [facility] Work Phone: Daily Progress Note-Infectio us Diseaseon 10-28-2022 Daily Progress Note-Infectious Disease Service: Infectious Disease Subjective Data: GRACIE BANUELOS is a 57 year old Female who is Hospital Day # 6. Additional Information: Pt preparing for d/c this AM when she developed acute onset whole body rash, non-pruritic, and then shortly after felt unwell w/ N/V, diarrheal incontinence, and fever. Has some residual nausea but otherwise feeling ok. No SOB, no lip/tongue swelling, no mucosal sloughing. Objective Data: Objective Information: T PRBPMAPSpO2 [id number]/8292% Date/Time10/28 13: 13: 13: 13: 13:07 Range(36.1C - 39C ) (75 - 109 ) (16 - 19 ) (100 - 149 )/ (68 - 86 ) (91% - 97% ) Highest temp of 39 C was recorded at 10/28 11: Pain reported at 10/28 14:25: 6 = Moderate Physical Exam Narrative: Physical Exam: GEN: comfortable appearing middle aged woman, sitting up in bed, NAD HEENT: MMM, red scaly skin changes around R eye, improved and less erythematous; pupils not dilated and equal b/l, almost improved conjunctival injections on R side; no mucosal lesions or sloughing, no edema around mouth NECK: RESP: CTA anteriorly and posteriorly, scant end expiratory wheezes, no tachypnea or cyanosis CV: RRR, S1/S2, no appreciable murmurs, 2+ R radial pulse ABDOMEN: soft, nontender, BS+, nondistended MSK: no bony deformities, no joint warmth or swelling EXTREMITIES: warm and well-perfused, no peripheral edema GI/: SKIN: diffuse erythematous macular rash over entire back, abdomen, chest, legs and arms NEURO: alert, answers questions appropriately, moving b/l UE and LE to command, no gross focal deficits PSYCH: calm and cooperative Medication: Medications: ANTI-INFECTIVES: 1. Sulfamethoxazole 800 mg - Trimethoprim 160 m tablet(s) Oral Every 12 Hours CENTRAL NERVOUS SYSTEM AGENTS: 1. Acetaminophen: 975 mg Oral Every 8 Hours 2. oxyCODONE Immediate Release: 5 mg Oral Every 6 Hours PRN 3. hydrOXYzine Hydrochloride (ATARAX): 25 mg Oral Every 6 Hours PRN COAGULATION MODIFIERS: 1. Enoxaparin SubCutaneous: 40 mg SubCutaneous Every 24 Hours GASTROINTESTINAL AGENTS: 1. Loperamide: 2 mg Oral Every 4 Hours PRN 2. Pancrelipase (Creon 24,000): 1 capsule(s) Oral 3 Times a Day With Meals 3. Polyethylene Glycol: 17 gram(s) Oral Daily PRN 4. Pantoprazole: 40 mg Oral Daily METABOLIC AGENTS: 1. Simvastatin: 20 mg Oral At Bedtime NUTRITIONAL PRODUCTS: 1. Sodium Chloride 0.9% Injectable Flush: 10 mL IntraVenous Flush Every 8 Hours and as Needed PRN PSYCHOTHERAPEUTIC AGENTS: 1. Mirtazapine: 45 mg Oral At Bedtime 2. ARIPiprazole: 5 mg Oral Every Morning RESPIRATORY AGENTS: 1. diphenhydrAMINE: 25 mg Oral Every 4 Hours PRN 2. Albuterol 90 micrograms/ Inhalation MDI: 2 inhalation Inhalation Every 6 Hours PRN 3. Fluticasone 100 microgram - Vilanterol 25 microgram/ Inh: 1 inhalation Inhalation Every 24 Hours 4. Tiotropium Respimat 2.5 microgram/ Inhalation MDI: 2 inhalation Inhalation Every 24 Hours TOPICAL AGENTS: 1. Phenylephrine 0.25% Topical (Preparation H): 1 application(s) Topical Every 8 Hours PRN 2. Erythromycin 0.5% Ophthalmic: 0.5 inch(es) Right Eye Every 6 Hours Recent Lab Results: Results: CBC: 10/28/2022 16:30 \\ Hgb / \\ 11.2 L / WBC Plt 8.2 233 / Hct \\ / 35.2 L \\ RBC: 4.15 MCV: 85 Neutrophil %: 75.7 RFP: 10/28/2022 06:24 NA+ Cl- BUN / 139 104 10 / --------- Glucose ---- 85 K+ HCO3- Creat \\ 3.9 26 1.39 H \\ Calcium : 8.7Anion Gap : 13 Albumin : 3.4 Phos : 4.1 Assessment and Plan: Daily Risk Screen: Does patient have an indwelling urinary cathetern/a consulting service Does patient have a central linen/a consulting service Code Status: Code StatusFull Code Assessment: Gracie Banuelos is a 57 y/o woman pmhx sig for COPD, admitted from OSH on 10/23 with L inflammatory eye disease and concern for preseptal cellulitis. ID consulted for possible preseptal cellulitis. Antimicrobials: OSH: IV vanc 10/20- Pip-tazo 10/20- Clindamycin x 1 Microbiology: Syphilis and T spot nonreactive ID related problems: #L inflammatory eye diease Currently treating w/ broad abx with vanc and pip-tazo w/ pt is tolerating and states is improving her symptoms. No micro data/biopsy available. Although MRI at OSH reportedly concerning for fungal disease, none seen on scope w/ ENT and pt improving w/o antifungals. No identifiable source of trauma/infection. Being seen by Ophtho to determine next steps/possible biopsy, and as pt is improving, per primary team there are no plans for biopsy at this time. Remains afebrile, HDS, WBC now wnl after being elevated at OSH. First full day of therapy at [facility] was on 10/21. MRSA swab collected here today. Would continue to treat w/ PO amox-clav once ready for d/c. If MRSA swab is p (more content not included)... Normal [facility] Daily Progress Note-Ophthalm ologyon 10-28-2022 Daily Progress Note-Ophthalmology Service: Ophthalmology Subjective Data: GRACIE BANUELOS is a 57 year old Female who is Hospital Day # 6. Objective Data: Objective Information: T PRBPMAPSpO2 [id number]/7793% Date/Time10/28 11: 11: 11: 11: 11:31 Range(36.1C - 39C ) (75 - 109 ) (16 - 19 ) (100 - 149 )/ (68 - 86 ) (91% - 97% ) Highest temp of 39 C was recorded at 10/28 11:31 Pain reported at 10/28 7:58: 5 = Moderate Recent Lab Results: Results: RFP: 10/28/2022 06:24 NA+ Cl- BUN / 139 104 10 / --------- Glucose ---- 85 K+ HCO3- Creat \\ 3.9 26 1.39 H \\ Calcium : 8.7Anion Gap : 13 Albumin : 3.4 Phos : 4.1 Assessment and Plan: Code Status: Code StatusFull Code Assessment: Reason for consult: right eye pain HPI: This 57 year old woman with a history of COPD, HTN, current tobacco use disorder, and alcohol use disorder presents for evaluation of right eye pain. She reports ongoing right eye pain that is 8/10 and is worse with movement. She feels that her vision is a little blurry but not be much. She sometimes sees double vision that goes away when she closes either eye. One month ago she developed right upper and lower eyelid swelling and redness, as well as mild pain. Over several weeks the eyelid swelling and pain progressed. On 10/19/22 she presented to the [facility] and CT orbits showed findings concerning for right orbital cellulitis. WBC was reportedly 13.9, ESR 75, and CRP 42.6. She was prescribed clindamycin to take at home, but her pain only worsened and she presented to [facility] on 10/20/22 for further management. MRI orbits showed diffuse infiltration of right retroantral, extraconal fat, pterygopalatine fossa, inferior and lateral rectus muscles, and muscles of mastication. She was started on Vancomycin and Zosyn. ENT performed bedside endoscopy and did not see evidence of invasive fungal sinusitis. Denies flashes of light, floating spots, or sudden vision loss. Past Medical History: as above Family History: reviewed and not pertinent to chief complaint Medications: please refer to medication reconciliation Allergies: please refer to patient allergy list OCULAR EXAMINATION: Near VA OD 20/40, with pinhole occluder I don't see anything; OS 20/25 PHNI Pupils: 3>2 OU, briskly reactive without RAPD OU IOP: OD 17, 16 OS 12 Motility: OD -2 infraduction, -1 abduction; OS full Alignment: right hypertropia, comitant in all directions of gaze Confrontation visual sherman: Full to count fingers OU Color vision: 11/11 OU ANTERIOR SEGMENT: OD: Lids/Lashes: trace RUL and RLL edema, 2-3+ erythema of preseptal and periorbital skin, MRD1 2.0 mm Conjunctiva: trace-to-1+ diffuse injection, 1+ dependent chemosis (no chemosis of superior conjunctiva visualized) Cornea: clear stroma, no staining with fluorescein AC: deep and quiet Iris: round and reactive Lens: NS OS: Lids/Lashes: normal anatomy and position, MRD1 4.0 mm Conjunctiva: white and quiet Cornea: clear AC: deep and quiet Iris: round and reactive Lens: NS DILATED FUNDUS EXAM: (Dilated with 1% tropicamide and 2.5% phenylephrine) OD: Cup-to-disc ratio: 0.45 Optic nerve: pink with sharp margins Vitreous: clear Macula: flat and attached without lesions Vessels: normal course and caliber Periphery: no holes, tears, or detachments OS: Cup-to-disc ratio: 0.45 Optic nerve: pink with sharp margins Vitreous: clear Macula: flat and attached without lesions Vessels: normal course and caliber Periphery: no holes, tears, or detachments Imaging 10/19/22 CT Orbit Sella Inner, by report from [facility] shows: 1. Marked abnormality of the soft tissues of the RIGHT orbit including preseptal soft tissue swelling consistent with a cellulitis. Extensive enhancement of the conjunctival surface consistent with extensive conjunctivitis. There is enhancement of the RIGHT lacrimal gland consistent with dacryoadenitis. 2. Significant soft tissue thickening and edema along the anterior lateral aspect of the extraconal compartment of the RIGHT orbit. Findings consistent with orbital cellulitis, however no organized fluid collections or orbital abscess noted. No evidence of orbital compartment syndrome. 3. Normal appearance of the globes, ocular lenses and optic nerves bilaterally. 4. Normal appearance of the soft tissues of the LEFT orbit. 5. Chronic RIGHT maxillary sinus mucosal thickening. 10/21/22 MRI Head, which I personally reviewed, by report from [facility] shows Abnormal infiltration throughout the right retroantral and extraconal fat as well as the pterygopalatine fossa and diffusely throughout the right assistant associate full professor space with asymmetry of the muscles of mastication. Additional mild enlargement of the right inferior and lateral rectus. These fi (more content not included)... Normal [facility] HEPATIC FUNCTION PANELon Albumin [Mass/Vol] 3.5 g/dL Normal 3.4 - 5.0 [facility] Comment on above: Performed By: #### C MP #### [facility] [address] [place] [address] ALP [Catalytic activity/Vol] 90 U/L Normal 33 - 110 [facility] Comment on above: Performed By: #### C MP #### [facility] [address] [place] [address] ALT [Catalytic activity/Vol] 23 U/L Normal 7 - 45 [facility] Comment on above: Result Comment: Gretta ents treated with Sulfasalazine may generate falsely decreased results for ALT. Performed By: #### C MP #### [facility] [address] [place] [address] AST [Catalytic activity/Vol] 23 U/L Normal 9 - 39 [facility] Comment on above: Performed By: #### C MP #### [facility] [address] [place] [address] Bilirubin [Mass/Vol] 0.2 mg/dL Normal 0.0 - 1.2 [facility] Comment on above: Performed By: #### C MP #### [facility] [address] [place] [address] Bilirubin.indirect [Mass/Vol] 0.1 mg/dL Normal 0.0 - 0.3 [facility] Comment on above: Performed By: #### C MP #### [facility] [address] [place] [address] Protein [Mass/Vol] 6.3 g/dL Low 6.4 - 8.2 [facility] Comment on above: Performed By: #### C MP #### [facility] [address] [place] [address] Hepatic Function Panelon Albumin BCP dye [Mass/Vol] 3.5 g/dL 3.4 - 5.0 [facility] [employer] Work Phone: ALP [Catalytic activity/Vol] 90 U/L 33 - 110 [facility] [employer] Work Phone: [phone] ALT With P-5'-P [Catalytic activity/Vol] 23 U/L 7 - 45 [facility] [employer] Work Phone: [phone] Comment on above: Patients treated wit h Sulfasalazine may generate falsely decreased results for ALT. AST With P-5'-P [Catalytic activity/Vol] 23 U/L 9 - 39 [facility] [employer] Work Phone: Bilirubin [Mass/Vol] 0.2 mg/dL 0.0 - 1.2 [facility] [employer] Work Phone: Bilirubin.direct [Mass/Vol] 0.1 mg/dL 0.0 - 0.3 [facility] Work Phone: Protein [Mass/Vol] 6.3 g/dL below low threshold 6.4 - 8.2 [facility] Work Phone: RENAL FUNCTION PANELon 10-28 Albumin [Mass/Vol] 3.4 g/dL Normal 3.4 - 5.0 [facility] Comment on above: Performed By: #### C MP #### [facility] [address] [place] [address] Anion gap [Moles/Vol] 13 mmol/L Normal 10 - 20 [facility] Comment on above: Performed By: #### C MP #### [facility] [address] [place] [address] Calcium [Mass/Vol] 8.7 mg/dL Normal 8.6 - 10.6 [facility] Comment on above: Performed By: #### C MP #### [facility] [address] [place] [address] Chloride [Moles/Vol] 104 mmol/L Normal 98 - 107 [facility] Comment on above: Performed By: #### C MP #### [facility] [address] [place] [address] Creatinine [Mass/Vol] 1.39 mg/dL High 0.50 - 1.05 [facility] Comment on above: Performed By: #### C MP #### [facility] [address] [place] [address] GFR/1.73 sq M.predicted among non-blacks MDRD (S/P/Bld) [Vol rate/Area] 44 mL/min/{1.73_m2} Abnormal >90 [facility] Comment on above: Result Comment: CALC ULATIONS OF ESTIMATED GFR ARE PERFORMED USING THE 2020 CKD-EPI STUDY REFIT EQUATION WITHOUT THE RACE VARIABLE FOR THE IDMS-TRACEABLE CREATININE METHODS. https://jasn.asnjournals.org/content/early/ASN.2020 039240 Performed By: #### C MP #### [facility] [address] [place] [address] Glucose [Mass/Vol] 85 mg/dL Normal 74 - 99 [facility] Comment on above: Performed By: #### C MP #### [facility] [address] [place] [address] HCO3 (Bld) [Moles/Vol] 26 mmol/L Normal 21 - 32 [facility] Comment on above: Performed By: #### C MP #### [facility] [address] [place] [address] Phosphate [Mass/Vol] 4.1 mg/dL Normal 2.5 - 4.9 [facility] Comment on above: Result Comment: The performance characteristics of phosphorus testing in heparinized plasma have been validated by the individual laboratory site where testing is performed. Testing on heparinized plasma is not approved by the FDA; however, such approval is not necessary. Performed By: #### C MP #### [facility] [address] [place] [address] Potassium [Moles/Vol] 3.9 mmol/L Normal 3.5 - 5.3 [facility] Comment on above: Performed By: #### C MP #### [facility] [address] [place] [address] Sodium [Moles/Vol] 139 mmol/L Normal 136 - 145 [facility] Comment on above: Performed By: #### C MP #### [facility] [address] [place] [address] Urea nitrogen [Mass/Vol] 10 mg/dL Normal 6 - 23 [facility] Comment on above: Performed By: #### C MP #### [facility] [address] [place] [address] Renal Function Panelon 10-28 Albumin BCP dye [Mass/Vol] 3.4 g/dL 3.4 - 5.0 [facility] Work Phone: Anion gap [Moles/Vol] 13 mmol/L 10 - 20 [facility] Work Phone: Calcium [Mass/Vol] 8.7 mg/dL 8.6 - 10.6 [facility] rigoberto [facility] Work Phone: [phone] Chloride [Moles/Vol] 104 mmol/L 98 - 107 [facility] mack [facility] Work Phone: [phone] CO2 [Moles/Vol] 26 mmol/L 21 - 32 [facility] ilSierra [facility] Work Phone: [phone] Creatinine [Mass/Vol] 1.39 mg/dL above high threshold See Below [facility]-Ulices Giang Work Phone: [phone] Comment on above: Reference Range: 0.5 0 - 1.05 Glucose [Mass/Vol] 85 mg/dL 74 - 99 [facility] rigoberto Giang Work Phone: [phone] Phosphate [Mass/Vol] 4.1 mg/dL 2.5 - 4.9 MG-M mack Giang Work Phone: [phone] Comment on above: The performance burce acteristics of phosphorus testing in heparinized plasma have been validated by the individual laboratory site where testing is performed. Testing on heparinized plasma is not approved by the FDA; however, such approval is not necessary. Potassium [Moles/Vol] 3.9 mmol/L 3.5 - 5.3 [facility] Work Phone: [phone] Sodium [Moles/Vol] 139 mmol/L 136 - 145 [facility] rigoberto Giang Work Phone: [phone] Urea nitrogen [Mass/Vol] 10 mg/dL 6 - 23 [facility]lic[facility]ang Work Phone: [phone] Renal Function Panel 44 {mL/min/1.73m2} Abnormal >90 MG[facility]lic[facility]ang Work Phone: [phone] Comment on above: CALCULATIONS OF PAVAN MATED GFR ARE PERFORMED USING THE 2020 CKD-EPI STUDY REFIT EQUATION WITHOUT THE RACE VARIABLE FOR THE IDMS-TRACEABLE CREATININE METHODS.https://jasn.asnjournals.org/content// ASN.4575282333 UA MICROSCOPICon 10-28-2022 RBC 2 /HPF Normal 0-5 [facility] Comment on above: Performed By: #### C MP #### [facility] [address] [place], [place] SQUAMOUS EPITH. CELLS 7 /HPF Normal [facility] Comment on above: Performed By: #### C MP #### [facility] [address] [place] [address] WBC 2 /HPF Normal 0-5 [facility] Comment on above: Performed By: #### C MP #### [facility] [address] [place] [address] URINALYSIS WITH CULTURE IF I NDICATEDon 10-28-2022 Appearance (U) HAZY Normal CLEAR [facility] Comment on above: Performed By: #### C MP #### [facility] [address] [place] [address] Bilirubin Ql (U) Negative Normal NEGATIVE [facility] Comment on above: Performed By: #### C MP #### [facility] [address] [place] [address] Color (U) YELLOW Normal STRAW,YELLOW [facility] Comment on above: Performed By: #### C MP #### [facility] [address] [place] [address] Glucose Ql (U) Negative Normal NEGATIVE [facility] Comment on above: Performed By: #### C MP #### [facility] [address] [place] [address] Hemoglobin Ql (U) Negative Normal NEGATIVE [facility] Comment on above: Performed By: #### C MP #### [facility] [address] [place] [address] Ketones Ql (U) Negative Normal NEGATIVE [facility] Comment on above: Performed By: #### C MP #### [facility] [address] [place] [address] Leukocyte esterase Test strip Ql (U) Negative Normal NEGATIVE [facility] Comment on above: Performed By: #### C MP #### [facility] [address] [place] [address] Nitrite Ql (U) Negative Normal NEGATIVE [facility] Comment on above: Performed By: #### C MP #### [facility] [address] [place] [address] pH (U) 6.0 [pH] Normal 5.0 - 8.0 [facility] Comment on above: Performed By: #### C MP #### [facility] [address] [place] [address] Protein Ql (U) 30 (1+) Abnormal NEGATIVE [facility] Comment on above: Performed By: #### C MP #### [facility] [address] [place] [address] Specific gravity (U) [Rel density] 1.020 Normal 1.005 - 1.035 [facility] Comment on above: Performed By: #### C MP #### [facility] [address] [place] [address] Urobilinogen (U) [Mass/Vol] mg/dL Normal 0.0 - 1.9 [facility] Comment on above: Performed By: #### C MP #### [facility] [address] [place] [address] Color (U) YELLOW See Below [facility]- Wilfrid Giang Work Phone: Comment on above: Reference Range: STR AW,YELLOW Glucose Ql (U) Negative NEGATIVE [facility]- Wilfrid Giang Work Phone: Ketones Ql (U) Negative NEGATIVE [facility]- Wilfrid Giang Work Phone: Leukocyte esterase Test strip Ql (U) Negative NEGATIVE [facility] Wilfrid Giang Work Phone: pH (U) 6.0 [pH] 5.0 - 8.0 [facility] Wilfrid Giang Work Phone: Protein (U) [Mass/Vol] 30 (1+) Abnormal NEGATIVE [facility]- Wilfrid Giang Work Phone: RBC (U) [#/Vol] Negative NEGATIVE [facility] ne- Wilfrid Giang Work Phone: [phone] Specific gravity (U) [Rel density] 1.020 1 See Below -Ulices Giang Work Phone: [phone] Comment on above: Reference Range: 1.0 05 - 1.035 URINALYSIS WITH CULTURE IF INDICATED Negative NEGATIVE [facility] Work Phone: [phone] URINALYSIS WITH CULTURE IF INDICATED <2.0 0.0 - 1.9 [facility] Work Phone: [phone] URINALYSIS WITH CULTURE IF INDICATED HAZY CLEAR -Ulices Giang Work Phone: [phone] Urinalysis, Microscopicon Urinalysis, Microscopic 7 {/HPF} M Kusum Giang Work Phone: [phone] Urinalysis, Microscopic 2 {/HPF} 0-5 M Kusum Giang Work Phone: [phone] VANCOMYCINon 10-28-2022 VANCOMYCIN 13.7 ug/mL Normal [facility] Comment on above: Result Comment: .The rapeutic Ranges: Peak: All ages: 30.0-40.0 ug/mL . Trough: Age <18y: 5.0-10.0 ug/mL . Age >/= 18y: 5.0-20.0 ug/mL . Vancomycin trough concentrations drawn immediately prior to the next dose at steady-state are preferred for monitoring patients treated with vancomycin. Ref.: Am J Health-Syst Pharm 66: 83-98, 2009. Performed By: #### C MP #### [facility] [address] [place] [address] ANCA-ASSOCIATED VASCULITIS P ROFILE [ANCA,MPO,PR3]on 10-27-2022 Myeloperoxidase Ab Qn (S) 0 AU/mL 0-19 [facility] Work Phone: Comment on above: INTERPRETIVE INFORMA TION: Myeloperoxidase Abs, IgG 19 AU/mL or Less ......... Negative 20-25 AU/mL .............. Equivocal 26 AU/mL or Greater ...... PositiveApproximately 90% of patients with a P-ANCA pattern by IFA have antibodies specific for MPO. Proteinase 3 Ab Qn (S) 0 AU/mL 0-19 [facility] Wilfrid Giang Work Phone: Comment on above: INTERPRETIVE INFORMA TION: Serine Proteinase 3, IgG 19 AU/mL or Less ........ Negative 20-25 AU/mL ............. Equivocal 26 AU/mL or Greater ..... PositiveApproximately 85% of patients with a C-ANCA pattern by IFA have antibodies specific for PR3. ANCA-ASSOCIATED VASCULITIS PROFILE [ANCA,MPO,PR3] Not detected See Below [facility] FAIRVIEWHealth2Workslas Giang Work Phone: Comment on above: Reference Range: Non e DetectedINTERPRETIVE INFORMATION: ANCA IFA Pattern Neutrophil Cytoplasmic Antibodies (C-ANCA = granular cytoplasmic staining, P-ANCA = perinuclear staining) are found in the serum of over 90 percent of patients with certain necrotizing systemic vasculitides, and usually in less than 5 percent of patients with collagen vascular disease or arthritis.Performed By: [facility] [place] [address] [id number] Director: Kyle Hyatt MD, PhD ANCA-ASSOCIATED VASCULITIS PROFILE [ANCA,MPO,PR3] <1:20 <1:20 [facility] FAIRVIEWAFrame Digital Wilfrid Giang Work Phone: CBC AND DIFFERENTIALon 10-27 % AUTOMATED IMMATURE GRAN 0.7 % Normal 0.0 - 0.9 [facility] Comment on above: Result Comment: Iram ture Granulocyte Count (IG) includes promyelocytes, myelocytes and metamyelocytes but does not include bands. Percent differential counts (%) should be interpreted in the context of the absolute cell counts (cells/L). Performed By: #### U A #### [facility] [address] [place] [address] Basophils (Bld) [#/Vol] 0.05 10*3/uL Normal 0.00 - 0.1 0 [facility] Comment on above: Performed By: #### U A #### [facility] [address] [place] [address] Basophils/100 WBC (Bld) 0.5 % Normal 0.0 - 2.0 [facility] Comment on above: Performed By: #### U A #### [facility] [address] [place] [address] Eosinophils (Bld) [#/Vol] 0.99 10*3/uL High 0.00 - 0.70 [facility] Comment on above: Performed By: #### U A #### [facility] [address] [place] [address] Eosinophils/100 WBC (Bld) 10.6 % Normal 0.0 - 6.0 [facility] Comment on above: Performed By: #### U A #### [facility] [address] [place] [address] Erythrocyte distribution width (RBC) [Ratio] 13.3 % Normal 11.5 - 14.5 [facility] Comment on above: Performed By: #### U A #### [facility] [address] [place] [address] Hematocrit (Bld) [Volume fraction] 35.9 % Low 36.0 - 46.0 [facility] Comment on above: Performed By: #### U A #### [facility] [address] [place] [address] Hemoglobin (Bld) [Mass/Vol] 11.7 g/dL Low 12.0 - 16.0 [facility] Comment on above: Performed By: #### U A #### [facility] [address] [place] [address] Lymphocytes (Bld) [#/Vol] 1.29 10*3/uL Normal 1.20 - 4.80 [facility] Comment on above: Performed By: #### U A #### [facility] [address] [place] [address] Lymphocytes/100 WBC (Bld) 13.8 % Normal 13.0 - 44.0 [facility] Comment on above: Performed By: #### U A #### [facility] [address] [place] [address] MCHC (RBC) [Mass/Vol] 32.6 g/dL Normal 32.0 - 36.0 [facility] Comment on above: Performed By: #### U A #### [facility] [address] [place] [address] MCV (RBC) [Entitic vol] 82 fL Normal 80 - 100 [facility] Comment on above: Performed By: #### U A #### [facility] [address] [place] [address] Monocytes (Bld) [#/Vol] 1.18 10*3/uL High 0.10 - 1.0 0 [facility] Comment on above: Performed By: #### U A #### [facility] [address] [place] [address] Monocytes/100 WBC (Bld) 12.6 % Normal 2.0 - 10.0 [facility] Comment on above: Performed By: #### U A #### [facility] [address] [place] [address] Neutrophils (Bld) [#/Vol] 5.78 10*3/uL Normal 1.20 - 7.70 [facility] Comment on above: Performed By: #### U A #### [facility] [address] [place] [address] Neutrophils/100 WBC (Bld) 61.8 % Normal 40.0 - 80.0 [facility] Comment on above: Performed By: #### U A #### [facility] [address] [place] [address] NUCLEATED RBC 0.0 /100 WBC Normal 0.0-0.0 [facility] Comment on above: Performed By: #### U A #### [facility] [address] [place] [address] Platelets (Bld) [#/Vol] 318 10*3/uL Normal 150 - 450 [facility] Comment on above: Performed By: #### U A #### [facility] [address] [place] [address] RBC 4.40 x10E12/L Normal 4.00 - 5.20 [facility] Comment on above: Performed By: #### U A #### [facility] [address] [place] [address] WBC (Bld) [#/Vol] 9.4 10*3/uL Normal 4.4 - 11.3 [facility] Comment on above: Performed By: #### U A #### [facility] [address] [place] [address] COMPREHENSIVE PANELon 2022 Albumin [Mass/Vol] 3.5 g/dL Normal 3.4 - 5.0 [facility] Comment on above: Performed By: #### U A #### [facility] [address] [place] [address] ALP [Catalytic activity/Vol] 109 U/L Normal 33 - 110 [facility] Comment on above: Performed By: #### U A #### [facility] [address] [place] [address] ALT [Catalytic activity/Vol] 20 U/L Normal 7 - 45 [facility] Comment on above: Result Comment: Gretta ents treated with Sulfasalazine may generate falsely decreased results for ALT. Performed By: #### U A #### [facility] [address] [place] [address] Anion gap [Moles/Vol] 15 mmol/L Normal 10 - 20 [facility] Comment on above: Performed By: #### U A #### [facility] [address] [place] [address] AST [Catalytic activity/Vol] 20 U/L Normal 9 - 39 [facility] Comment on above: Performed By: #### U A #### [facility] [address] [place] [address] Bilirubin [Mass/Vol] 0.3 mg/dL Normal 0.0 - 1.2 [facility] Comment on above: Performed By: #### U A #### [facility] [address] [place] [address] Calcium [Mass/Vol] 9.2 mg/dL Normal 8.6 - 10.6 [facility] Comment on above: Performed By: #### U A #### [facility] [address] [place] [address] Chloride [Moles/Vol] 102 mmol/L Normal 98 - 107 [facility] Comment on above: Performed By: #### U A #### [facility] [address] [place] [address] Creatinine [Mass/Vol] 1.53 mg/dL High 0.50 - 1.05 [facility] Comment on above: Performed By: #### U A #### [facility] [address] [place] [address] GFR/1.73 sq M.predicted among non-blacks MDRD (S/P/Bld) [Vol rate/Area] 39 mL/min/{1.73_m2} Abnormal >90 [facility] Comment on above: Result Comment: CALC ULATIONS OF ESTIMATED GFR ARE PERFORMED USING THE 2020 CKD-EPI STUDY REFIT EQUATION WITHOUT THE RACE VARIABLE FOR THE IDMS-TRACEABLE CREATININE METHODS. https://jasn.asnjournals.org/content/early/ASN.2020 040916 Performed By: #### U A #### [facility] [address] [place] [address] Glucose [Mass/Vol] 91 mg/dL Normal 74 - 99 [facility] Comment on above: Performed By: #### U A #### [facility] [address] [place] [address] HCO3 (Bld) [Moles/Vol] 24 mmol/L Normal 21 - 32 [facility] Comment on above: Performed By: #### U A #### [facility] [address] [place] [address] Potassium [Moles/Vol] 4.4 mmol/L Normal 3.5 - 5.3 [facility] Comment on above: Performed By: #### U A #### [facility] [address] [place] [address] Protein [Mass/Vol] 6.6 g/dL Normal 6.4 - 8.2 [facility] Comment on above: Performed By: #### U A #### [facility] [address] [place] [address] Sodium [Moles/Vol] 137 mmol/L Normal 136 - 145 [facility] Comment on above: Performed By: #### U A #### [facility] [address] [place] [address] Urea nitrogen [Mass/Vol] 12 mg/dL Normal 6 - 23 [facility] Comment on above: Performed By: #### U A #### [facility] [address] [place] [address] Complete Blood Count + Diffe yamil 10-27-2022 Basophils/100 WBC (Bld) 0.5 % 0.0 - 2.0 M seniorshelf.comlas Giang Work Phone: Erythrocyte distribution width (RBC) [Ratio] 13.3 % See Below [employer] Work Phone: Comment on above: Reference Range: 11. 5 - 14.5 Hematocrit (Bld) [Volume fraction] 35.9 % below low threshold See Below [employer] Work Phone: Comment on above: Reference Range: 36. 0 - 46.0 Hemoglobin (Bld) [Mass/Vol] 11.7 g/dL below low threshold See Below [employer] Work Phone: Comment on above: Reference Range: 12. 0 - 16.0 Lymphocytes/100 WBC (Bld) 13.8 % See Below [employer] Work Phone: Comment on above: Reference Range: 13. 0 - 44.0 MCHC (RBC) [Mass/Vol] 32.6 g/dL See Below [employer] Work Phone: Comment on above: Reference Range: 32. 0 - 36.0 MCV (RBC) [Entitic vol] 82 fL 80 - 100 M [facility] Work Phone: [phone] Monocytes/100 WBC (Bld) 12.6 % 2.0 - 10.0 M [facility] Wilfrid [facility]ang Work Phone: Neutrophils/100 WBC (Bld) 61.8 % See Below [facility] Wilfrid [facility]ang Work Phone: Comment on above: Reference Range: 40. 0 - 80.0 Platelets (Bld) [#/Vol] 318 10*3/uL 150 - 450 [facility]MedicineSierra Giang Work Phone: RBC (Bld) [#/Vol] 4.40 {x10E12/L} See Below [facility] Wilfrid [facility]ang Work Phone: Comment on above: Reference Range: 4.0 0 - 5.20 WBC (Bld) [#/Vol] 9.4 10*3/uL 4.4 - 11.3 [facility] icine- Wilfrid Giang Work Phone: Complete Blood Count + Differential 0.05 {x10E9/L} See Below [facility] Wilfrid Giang Work Phone: Comment on above: Reference Range: 0.0 0 - 0.10 Complete Blood Count + Differential 0.99 {x10E9/L} above high threshold See Below [facility] Wilfrid Giang Work Phone: Comment on above: Reference Range: 0.0 0 - 0.70 Complete Blood Count + Differential 1.18 {x10E9/L} above high threshold See Below MG-MedicineSierra Giang Work Phone: Comment on above: Reference Range: 0.1 0 - 1.00 Complete Blood Count + Differential 1.29 {x10E9/L} See Below [facility] Wilfrid [facility]ang Work Phone: Comment on above: Reference Range: 1.2 0 - 4.80 Complete Blood Count + Differential 5.78 {x10E9/L} See Below [facility] Wilfrid [facility]ang Work Phone: Comment on above: Reference Range: 1.2 0 - 7.70 Complete Blood Count + Differential 10.6 % 0.0 - 6.0 [facility] Wilfrid [facility]ang Work Phone: Complete Blood Count + Differential 0.7 % 0.0 - 0.9 -Ulices Giang Work Phone: Comment on above: Immature Granulocyte Count (IG) includes promyelocytes, myelocytes and metamyelocytes but does not include bands. Percent differential counts (%) should be interpreted in the context of the absolute cell counts (cells/L). Complete Blood Count + Differential 0.0 {/100_WBC} 0.0-0.0 [facility] Work Phone: Daily Progress Note-Infectio us Diseaseon 10-27-2022 Daily Progress Note-Infectious Disease Service: Infectious Disease Subjective Data: GRACIE BANUELOS is a 57 year old Female who is Hospital Day # 5. Additional Information: No events overnight; states she had some eyelashes in her eye that were removed and she feels much better. Thinks the redness around her eye is improved. Objective Data: Objective Information: T PRBPMAPSpO2 [id number]% Date/Time10/27 14: 14: 14: 14: 14:12 Range(36.2C - 36.6C ) (75 - 96 ) (16 - 19 ) (114 - 150 )/ (76 - 97 ) (93% - 97% ) Pain reported at 10/27 15:04: 6 = Moderate Physical Exam Narrative: Physical Exam: GEN: comfortable appearing middle aged woman, sitting up in bed, NAD HEENT: MMM, red scaly skin changes around R eye, now improved and less erythematous; pupils not dilated and equal b/l, mild scleral injections on R side NECK: RESP: CTA anteriorly, scant end expiratory wheezes, no tachypnea or cyanosis CV: RRR, S1/S2, no appreciable murmurs, 2+ R radial pulse ABDOMEN: soft, nontender, BS+, nondistended MSK: no bony deformities, no joint warmth or swelling EXTREMITIES: warm and well-perfused, no peripheral edema GI/: SKIN: as above NEURO: alert, answers questions appropriately, moving b/l UE and LE to command, no gross focal deficits PSYCH: calm and cooperative Medication: Medications: 1. Vancomycin - RPh to Dose - IV Piggy Back: 1 each As Specified Variable ANTI-INFECTIVES: 1. Piperacillin - Tazobactam 3.375 gram/Iso-osmotic 50 mL Premix IVPB: 50 mL IntraVenous Piggyback Every 6 Hours CENTRAL NERVOUS SYSTEM AGENTS: 1. Acetaminophen: 975 mg Oral Every 8 Hours 2. oxyCODONE Immediate Release: 5 mg Oral Every 6 Hours PRN 3. hydrOXYzine Hydrochloride (ATARAX): 25 mg Oral Every 6 Hours PRN COAGULATION MODIFIERS: 1. Enoxaparin SubCutaneous: 40 mg SubCutaneous Every 24 Hours GASTROINTESTINAL AGENTS: 1. Loperamide: 2 mg Oral Every 4 Hours PRN 2. Pancrelipase (Creon 24,000): 1 capsule(s) Oral 3 Times a Day With Meals 3. Polyethylene Glycol: 17 gram(s) Oral Daily PRN 4. Pantoprazole: 40 mg Oral Daily METABOLIC AGENTS: 1. Simvastatin: 20 mg Oral At Bedtime NUTRITIONAL PRODUCTS: 1. Sodium Chloride 0.9% Injectable Flush: 10 mL IntraVenous Flush Every 8 Hours and as Needed PRN PSYCHOTHERAPEUTIC AGENTS: 1. Mirtazapine: 45 mg Oral At Bedtime 2. ARIPiprazole: 5 mg Oral Every Morning RESPIRATORY AGENTS: 1. diphenhydrAMINE: 25 mg Oral Every 4 Hours PRN 2. Albuterol 90 micrograms/ Inhalation MDI: 2 inhalation Inhalation Every 6 Hours PRN 3. Fluticasone 100 microgram - Vilanterol 25 microgram/ Inh: 1 inhalation Inhalation Every 24 Hours 4. Tiotropium Respimat 2.5 microgram/ Inhalation MDI: 2 inhalation Inhalation Every 24 Hours TOPICAL AGENTS: 1. Phenylephrine 0.25% Topical (Preparation H): 1 application(s) Topical Every 8 Hours PRN 2. Erythromycin 0.5% Ophthalmic: 0.5 inch(es) Right Eye Every 6 Hours Recent Lab Results: Results: CBC: 10/27/2022 08:24 \\ Hgb / \\ 11.7 L / WBC Plt 9.4 318 / Hct \\ / 35.9 L \\ RBC: 4.40 MCV: 82 Neutrophil %: 61.8 CMP: 10/27/2022 08:24 NA+ Cl- BUN / 137 102 12 / --------- Glucose ---- 91 K+ HCO3- Creat \\ 4.4 24 1.53 H \\ \\ T Bili / \\ 0.3 / AST x ---- x ALT 20 x ---- x 20 / Alk P \\ / 109 \\ Calcium : 9.2 Anion Gap : 15 Albumin : 3.5 T Protein : 6.6 Assessment and Plan: Daily Risk Screen: Does patient have an indwelling urinary cathetern/a consulting service Does patient have a central linen/a consulting service Code Status: Code StatusFull Code Assessment: Gracie Banuelos is a 57 y/o woman pmhx sig for COPD, admitted from OSH on 10/23 with L inflammatory eye disease and concern for preseptal cellulitis. ID consulted for possible preseptal cellulitis. Antimicrobials: OSH: IV vanc 10/20- Pip-tazo 10/20- Clindamycin x 1 Microbiology: F/u outside syphilis testing, TB ID related problems: #L inflammatory eye diease Currently treating w/ broad abx with vanc and pip-tazo w/ pt is tolerating and states is improving her symptoms. No micro data/biopsy available. Although MRI at OSH reportedly concerning for fungal disease, none seen on scope w/ ENT and pt improving w/o antifungals. No identifiable source of trauma/infection. Being seen by Ophtho to determine next steps/possible biopsy, and as pt is improving, per primary team there are no plans for biopsy at this time. Remains afebrile, HDS, WBC now wnl after being elevated at OSH. First full day of therapy at [facility] was on 10/21. MRSA swab collected here today. Would continue to treat w/ PO amox-clav once ready for d/c. If MRSA swab is positive, can transition or change to TMP-SMX. #CHUY Baseline <1, Cr 1.5. Could be combination of vanc and pip-tazo; Cr currently stab (more content not included)... Normal [facility] Daily Progress Note-Medicine on 10-27-2022 Daily Progress Note-Medicine Service: Medicine Subjective Data: GRACIE BANUELOS is a 57 year old Female who is Hospital Day # 5. No overnight events. Pt reports improvement in swelling in her right eye. And she states that she feels less scratching in her eye especially after the removal of some of the hairs behind her eye lid. Objective Data: Objective Information: T PRBPMAPSpO2 [id number]% Date/Time10/27 4: 4: 4: 4: 4:29 Range(36.3C - 36.6C ) (75 - 96 ) (16 - 18 ) (136 - 150 )/ (76 - 97 ) (93% - 97% ) Pain reported at 10/27 0:25: 7 = Severe Physical Exam by System: Eyes: Right eye with mildly erythematous. Pain with movement. crosses midline. Difficulty with abduction. Respiratory/Thorax: Patent airways, CTAB, normal breath sounds with good chest expansion, Cardiovascular: Regular, rate and rhythm, no murmurs Gastrointestinal: Nondistended, soft, non-tender, no rebound tenderness or guarding, no organomegaly, Neurological: alert and oriented x3, intact senses, motor, response and normal strength Medication: Medications: 1. Vancomycin - RPh to Dose - IV Piggy Back: 1 each As Specified Variable ANTI-INFECTIVES: 1. Piperacillin - Tazobactam 3.375 gram/Iso-osmotic 50 mL Premix IVPB: 50 mL IntraVenous Piggyback Every 6 Hours CENTRAL NERVOUS SYSTEM AGENTS: 1. Acetaminophen: 975 mg Oral Every 8 Hours 2. oxyCODONE Immediate Release: 5 mg Oral Every 6 Hours PRN 3. hydrOXYzine Hydrochloride (ATARAX): 25 mg Oral Every 6 Hours PRN COAGULATION MODIFIERS: 1. Enoxaparin SubCutaneous: 40 mg SubCutaneous Every 24 Hours GASTROINTESTINAL AGENTS: 1. Loperamide: 2 mg Oral Every 4 Hours PRN 2. Pancrelipase (Creon 24,000): 1 capsule(s) Oral 3 Times a Day With Meals 3. Polyethylene Glycol: 17 gram(s) Oral Daily PRN 4. Pantoprazole: 40 mg Oral Daily METABOLIC AGENTS: 1. Simvastatin: 20 mg Oral At Bedtime NUTRITIONAL PRODUCTS: 1. Sodium Chloride 0.9% Injectable Flush: 10 mL IntraVenous Flush Every 8 Hours and as Needed PRN PSYCHOTHERAPEUTIC AGENTS: 1. Mirtazapine: 45 mg Oral At Bedtime 2. ARIPiprazole: 5 mg Oral Every Morning RESPIRATORY AGENTS: 1. diphenhydrAMINE: 25 mg Oral Every 4 Hours PRN 2. Albuterol 90 micrograms/ Inhalation MDI: 2 inhalation Inhalation Every 6 Hours PRN 3. Fluticasone 100 microgram - Vilanterol 25 microgram/ Inh: 1 inhalation Inhalation Every 24 Hours 4. Tiotropium Respimat 2.5 microgram/ Inhalation MDI: 2 inhalation Inhalation Every 24 Hours TOPICAL AGENTS: 1. Phenylephrine 0.25% Topical (Preparation H): 1 application(s) Topical Every 8 Hours PRN 2. Erythromycin 0.5% Ophthalmic: 0.5 inch(es) Right Eye Every 6 Hours Recent Lab Results: Results: RFP: 10/26/2022 11:30 NA+ Cl- BUN / 136 102 15 / --------- Glucose ---- 124 H K+ HCO3- Creat \\ 4.1 24 1.57 H \\ Calcium : 9.2Anion Gap : 14 Albumin : 3.9 Phos : 5.3 H Assessment and Plan: Comorbidities: Comorbidityacute kidney injury Kidneyno further specification Code Status: Code StatusFull Code Assessment: Assessment/Plan: 57 year old woman presenting as a transfer form outside hospital for further evaluation of right orbit pain/swelling/concern for infiltrative mass vs. infection. Current workup favors infection vs. infiltrative mass rather than autoimmune process. Given elevated inflammatory markers infection seems most likely. On IV antibiotics and Ocluoplastic is on board. Observing the patient for improvements on antibiotics before considering biopsy per Ophthalmology. 10/27 Updates: - Eye pain and swelling improving - CHUY workup pending - Imodium for diarrhea #Preseptal Cellulitis vs. Infiltrative Mass -Presence of symptoms on and off for months without subjective improvement despite 5 days of broad spectrum antibiotics would favor neoplasm/mass but presence of elevated ESR/CRP and neutrophilia suggest inflammatory process -ENT scope at without concern for invasive fungal infection, thus will treat with antibacterial agents only -Vancomycin and pip/tazo continued -Oculoplastics/ophthalm ology consulted - ID consulted recommends continuing current abx regimen - ENT consulted they referred the biopsy to oculoplastics - Oculoplastics recommends waiting for the next few days for any improvement on antibiotics. If no improvement is noticed biopsy is recommended -Pain control with oxycodone, - Dc morphine and de-escalate oxycodone 5 mg from q4 hours to every 6hours - Developed rash on upper back / back of neck; previously noted urticaria to PCN. Continue with zosyn with as needed benadryl/atarax. # Diarrhea: Pt stated that it started the day she left [facility]. C. diff work up at [facility] came back negative - Likely due to Abx - Started on Immodium as needed - Will consider C diff PCR if diarrhea continues (more content not included)... Normal [facility] Daily Progress Note-Ophthalm ologyon 10-27-2022 Daily Progress Note-Ophthalmology Service: Ophthalmology Subjective Data: GRACIE BANUELOS is a 57 year old Female who is Hospital Day # 5. Objective Data: Objective Information: T PRBPMAPSpO2 [id number]/8297% Date/Time10/27 4: 4: 4: 4: 4:29 Range(36.3C - 36.6C ) (75 - 96 ) (16 - 18 ) (136 - 150 )/ (76 - 97 ) (93% - 97% ) Pain reported at 10/27 9:14: 4 = Moderate Recent Lab Results: Results: CBC: 10/27/2022 08:24 \\ Hgb / \\ 11.7 L / WBC Plt 9.4 318 / Hct \\ / 35.9 L \\ RBC: 4.40 MCV: 82 Neutrophil %: 61.8 CMP: 10/27/2022 08:24 NA+ Cl- BUN / 137 102 12 / --------- Glucose ---- 91 K+ HCO3- Creat \\ 4.4 24 1.53 H \\ \\ T Bili / \\ 0.3 / AST x ---- x ALT 20 x ---- x 20 / Alk P \\ / 109 \\ Calcium : 9.2 Anion Gap : 15 Albumin : 3.5 T Protein : 6.6 RFP: 10/26/2022 11:30 NA+ Cl- BUN / 136 102 15 / --------- Glucose ---- 124 H K+ HCO3- Creat \\ 4.1 24 1.57 H \\ Calcium : 9.2Anion Gap : 14 Albumin : 3.9 Phos : 5.3 H Assessment and Plan: Code Status: Code StatusFull Code Assessment: Reason for consult: right eye pain HPI: This 57 year old woman with a history of COPD, HTN, current tobacco use disorder, and alcohol use disorder presents for evaluation of right eye pain. She reports ongoing right eye pain that is 8/10 and is worse with movement. She feels that her vision is a little blurry but not be much. She sometimes sees double vision that goes away when she closes either eye. One month ago she developed right upper and lower eyelid swelling and redness, as well as mild pain. Over several weeks the eyelid swelling and pain progressed. On 10/19/22 she presented to the [place] [facility] and CT orbits showed findings concerning for right orbital cellulitis. WBC was reportedly 13.9, ESR 75, and CRP 42.6. She was prescribed clindamycin to take at home, but her pain only worsened and she presented to [facility] on 10/20/22 for further management. MRI orbits showed diffuse infiltration of right retroantral, extraconal fat, pterygopalatine fossa, inferior and lateral rectus muscles, and muscles of mastication. She was started on Vancomycin and Zosyn. ENT performed bedside endoscopy and did not see evidence of invasive fungal sinusitis. Denies flashes of light, floating spots, or sudden vision loss. Past Medical History: as above Family History: reviewed and not pertinent to chief complaint Medications: please refer to medication reconciliation Allergies: please refer to patient allergy list OCULAR EXAMINATION: Near VA OD 20/40, with pinhole occluder I don't see anything; OS 20/25 PHNI Pupils: 3>2 OU, briskly reactive without RAPD OU IOP: OD 17, 16 OS 12 Motility: OD -2 infraduction, -1 abduction; OS full Alignment: right hypertropia, comitant in all directions of gaze Confrontation visual sherman: Full to count fingers OU Color vision: 08/08 OU ANTERIOR SEGMENT: OD: Lids/Lashes: trace RUL and RLL edema, 2-3+ erythema of preseptal and periorbital skin, MRD1 2.0 mm Conjunctiva: trace-to-1+ diffuse injection, 1+ dependent chemosis (no chemosis of superior conjunctiva visualized) Cornea: clear stroma, no staining with fluorescein AC: deep and quiet Iris: round and reactive Lens: NS OS: Lids/Lashes: normal anatomy and position, MRD1 4.0 mm Conjunctiva: white and quiet Cornea: clear AC: deep and quiet Iris: round and reactive Lens: NS DILATED FUNDUS EXAM: (Dilated with 1% tropicamide and 2.5% phenylephrine) OD: Cup-to-disc ratio: 0.45 Optic nerve: pink with sharp margins Vitreous: clear Macula: flat and attached without lesions Vessels: normal course and caliber Periphery: no holes, tears, or detachments OS: Cup-to-disc ratio: 0.45 Optic nerve: pink with sharp margins Vitreous: clear Macula: flat and attached without lesions Vessels: normal course and caliber Periphery: no holes, tears, or detachments Imaging 10/19/22 CT Orbit Sella Inner, by report from [facility] shows: 1. Marked abnormality of the soft tissues of the RIGHT orbit including preseptal soft tissue swelling consistent with a cellulitis. Extensive enhancement of the conjunctival surface consistent with extensive conjunctivitis. There is enhancement of the RIGHT lacrimal gland consistent with dacryoadenitis. 2. Significant soft tissue thickening and edema along the anterior lateral aspect of the extraconal compartment of the RIGHT orbit. Findings consistent with orbital cellulitis, however no organized fluid collections or orbital abscess noted. No evidence of orbital compartment syndrome. 3. Normal appearance of the globes, ocular lenses and optic nerves bilaterally. 4. Normal appearance of the soft tissues of the LEFT orbit. 5. (more content not included)... Normal [facility] EMR ADDONon 10-27-2022 ADDON CONFIRMATION REQUEST REC'D Normal [facility] Comment on above: Performed By: #### U A #### [facility] [address] [place] [address] GLUCOSE-POCTon 10-27-2022 Glucose [Mass/Vol] 100 mg/dL High 74 - 99 [facility] Comment on above: Performed By: #### U A #### [facility] [address] [place] [address] Laboratory - Chemistry and C hemistry - challengeon 10-27-2022 Potassium (U) [Moles/Vol] 6 mmol/L See Below [facility] Work Phone: Comment on above: Reference Range: Not Established Potassium/Creatinine (U) [Molar ratio] 22 {mmol/g_Creat} See Below [facility] Work Phone: Comment on above: Reference Range: Not Established Sodium (U) [Moles/Vol] 18 mmol/L See Below [employer] Work Phone: Comment on above: Reference Range: Not Established Sodium/Creatinine (U) [Ratio] 67 {mmol/g_Creat} See Below [facility] Work Phone: Comment on above: Reference Range: Not Established Glucose [Mass/Vol] 100 mg/dL above high threshold 74 - 99 [facility] FAIRVIEWHealth2Workslas Giang Work Phone: Albumin BCP dye [Mass/Vol] 3.5 g/dL 3.4 - 5.0 [facility] Work Phone: ALP [Catalytic activity/Vol] 109 U/L 33 - 110 [facility] Work Phone: ALT With P-5'-P [Catalytic activity/Vol] 20 U/L 7 - 45 -[facility] Work Phone: Comment on above: Patients treated wit h Sulfasalazine may generate falsely decreased results for ALT. Anion gap [Moles/Vol] 15 mmol/L 10 - 20 [facility] Ulices Yuen Giang Work Phone: AST With P-5'-P [Catalytic activity/Vol] 20 U/L 9 - 39 [facility]VIEWU[facility] Yuen [place] Work Phone: [phone] Bilirubin [Mass/Vol] 0.3 mg/dL 0.0 - 1.2 [facility] Work Phone: [phone] Calcium [Mass/Vol] 9.2 mg/dL 8.6 - 10.6 [facility] Work Phone: [phone] Chloride [Moles/Vol] 102 mmol/L 98 - 107 [facility]indaMotion [facility] Work Phone: [phone] CO2 [Moles/Vol] 24 mmol/L 21 - 32 [facility] Work Phone: Creatinine [Mass/Vol] 1.53 mg/dL above high threshold See Below [facility]VIEW[facility]lic[facility] Yuen [place] Work Phone: Comment on above: Reference Range: 0.5 0 - 1.05 Glucose [Mass/Vol] 91 mg/dL 74 - 99 [facility] giovany Wilfrid [place] Work Phone: Potassium [Moles/Vol] 4.4 mmol/L 3.5 - 5.3 [facility] Work Phone: [phone] Protein [Mass/Vol] 6.6 g/dL 6.4 - 8.2 [facility] est[facility] Work Phone: [phone] Sodium [Moles/Vol] 137 mmol/L 136 - 145 [facility] Hospitaljuliana[facility] Work Phone: [phone] Urea nitrogen [Mass/Vol] 12 mg/dL 6 - 23 [facility]VIEW[facility] Yuen [place] Work Phone: [phone] MRSA Screenon 10-27-2022 Staphylococcus sp identified Org specific cx Nom (Unsp spec) [facility]VIEW[facility]lic[facility] Yuen [place] Work Phone: [phone] Panel Informationon 10-27 39 {mL/min/1.73m2} Abnormal >90 [facility] rigoberto Giang Work Phone: Comment on above: CALCULATIONS OF PAVAN MATED GFR ARE PERFORMED USING THE 2020 CKD-EPI STUDY REFIT EQUATION WITHOUT THE RACE VARIABLE FOR THE IDMS-TRACEABLE CREATININE METHODS.https://jasn.asnjournals.org/content/early/ ASN.8586895563 POTASSIUM, URINE SPOTon 09-30 POT/CREAT RATIO 22 mmol/g Creat Normal Not Established [facility] Comment on above: Performed By: #### U A #### [facility] [address] [place] [address] POTASSIUM,URINE SPOT 6 mmol/L Normal Not Established [facility] Comment on above: Performed By: #### U A #### [facility] [address] [place] [address] SODIUM, URINE SPOTon 023 CREATININE,URINE 27.0 mg/dL Normal 20.0 - 320.0 [facility] Comment on above: Performed By: #### C MP #### [facility] [address] [place] [address] Performed By: #### U A #### [facility] [address] [place] [address] Sodium (U) [Moles/Vol] 18 mmol/L Normal Not Established [facility] Comment on above: Performed By: #### C MP #### [facility] [address] [place] [address] SODIUM/CREAT RATIO 67 mmol/g Creat Normal Not Established [facility] Comment on above: Performed By: #### C MP #### [facility] [address] [place] [address] STAPH/MRSA SCREENon 10-27-19 23 STAPH/MRSA SCREEN PATIENT: FERNIE BANUELOS LOCATION: [place] [address] BILL#: [id number] : 61 AGE: SEX: F ORDERED BY: JUSTYN RICHTER SOURCE: ANTERIOR NARES COLLECTED: 10/27/22 15:12 ANTIBIOTICS AT DEB.: RECEIVED : 10/27/22 17:38 SITE: Nares R E S U L T S STAPH/MRSA SCREEN FINAL 10/29/22 11:04 NO Staphylococcus aureus ISOLATED. Normal [facility] Comment on above: Performed By: #### S TAPH #### [facility] [address] [place] [id number] T-SPOT TBon 10-27-2022 NIL[NEG]CONTROL SPOT COUNT Passed Normal [facility] Comment on above: Performed By: #### V ANCU #### [facility] [address] [place] [address] PANEL A SPOT COUNT 0 Normal [facility] Comment on above: Performed By: #### V ANCU #### [facility] [address] [place] [address] PANEL B SPOT COUNT 0 Normal [facility] Comment on above: Performed By: #### V ANCU #### [facility] [address] [place] [address] POS CONTROL SPOT COUNT Passed Normal [facility] Comment on above: Performed By: #### V ANCU #### [facility] [address] [place] [id number] T-SPOT.TB INTERP Negative Normal Normal Value: Negative [facility] Comment on above: Result Comment: A ne gative test result does not exclude the possibility of exposure to or infection with Mycobacterium tuberculosis (M. tuberculosis). Patients with recent exposure to TB infected individuals exhibiting a negative T-SPOT.TB result should be considered for retesting within 6 weeks or if other relevant clinical symptoms indicate. Results from T-SPOT.TB testing must be used in conjunction with each individual's epidemiological history, current medical status, and results of other diagnostic evaluations. The T-SPOT.TB test is qualitative and results are reported as positive, borderline or negative, given that the test controls perform as expected. In line with the Centers for Disease Control and Prevention's 2010 recommendation to report quantitative measurements alongside the qualitative result, the laboratory provides spot counts for informational purposes only. The T-SPOT.TB test should not be interpreted as a quantitative test. Performed By: #### V ANCU #### [facility] [address] [place] [address] TOTAL PROTEIN, URINE SPOTon 10-27-2022 T. PROTEIN/CREAT RATIO 0.19 mg/mg Creat High 0.00 - 0.17 [facility] Comment on above: Performed By: #### C MP #### [facility] [address] [place] [address] TOTAL PROT,URINE SPOT 5 mg/dL Normal 5 - 24 [facility] Comment on above: Performed By: #### C MP #### [facility] [address] 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 Pt is being discharged today for eye pain. Pt was recently seen on 10/22/2022. Where should I schedule this pt ? Thank you Sarah Conde Normal [employer] [facility] Total Protein, Urine Spoton 10-27-2022 Creatinine (U) [Mass/Vol] 27.0 mg/dL See Below [employer] Work Phone: Comment on above: Reference Range: 20. 0 - 320.0 Protein (U) [Mass/Vol] 5 mg/dL 5 - 24 [employer] Work Phone: Protein/Creatinine (U) [Ratio] 0.19 {mg/mg_Creat} above high threshold See Below [employer] Work Phone: Comment on above: Reference Range: 0.0 0 - 0.17 URINALYSISon 10-27-2022 Appearance (U) CLEAR Normal CLEAR [facility] Comment on above: Performed By: #### U A #### [facility] [address] [place] [address] Bilirubin Ql (U) Negative Normal NEGATIVE [facility] Comment on above: Performed By: #### U A #### [facility] [address] [place] [address] Color (U) STRAW Normal STRAW,YELLOW [facility] Comment on above: Performed By: #### U A #### [facility] [address] [place] [address] Glucose Ql (U) 50 (TRACE) Abnormal NEGATIVE [facility] Comment on above: Performed By: #### U A #### [facility] [address] [place] [address] Hemoglobin Ql (U) Negative Normal NEGATIVE [facility] Comment on above: Performed By: #### U A #### [facility] [address] [place] [address] Ketones Ql (U) Negative Normal NEGATIVE [facility] Comment on above: Performed By: #### U A #### [facility] [address] [place] [address] Leukocyte esterase Test strip Ql (U) Negative Normal NEGATIVE [facility] Comment on above: Performed By: #### U A #### [facility] [address] [place] [address] Nitrite Ql (U) Negative Normal NEGATIVE [facility] Comment on above: Performed By: #### U A #### [facility] [address] [place] [address] pH (U) 6.0 [pH] Normal 5.0 - 8.0 [facility] Comment on above: Performed By: #### U A #### [facility] [address] [place] [address] Protein Ql (U) Negative Normal NEGATIVE [facility] Comment on above: Performed By: #### U A #### [facility] [address] [place] [address] Specific gravity (U) [Rel density] 1.006 Normal 1.005 - 1.035 [facility] Comment on above: Performed By: #### U A #### [facility] [address] [place] [address] Urobilinogen (U) [Mass/Vol] mg/dL Normal 0.0 - 1.9 [facility] Comment on above: Performed By: #### U A #### [facility] [address] [place] [address] Urinalysison 10-27-2022 Color (U) STRAW See Below [facility] Wilfrid Giang Work Phone: [phone] Comment on above: Reference Range: STR AW,YELLOW Glucose Ql (U) 50 (TRACE) Abnormal NEGATIVE [facility] Wilfrid Giang Work Phone: [phone] Ketones Ql (U) Negative NEGATIVE [facility] Wilfrid Giang Work Phone: Leukocyte esterase Test strip Ql (U) Negative NEGATIVE [facility] Wilfrid Giang Work Phone: )[phone] pH (U) 6.0 [pH] 5.0 - 8.0 [facility] Wilfrid Giang Work Phone: Protein (U) [Mass/Vol] Negative NEGATIVE [facility] Wilfridjodi Giang Work Phone: )[phone] RBC (U) [#/Vol] Negative NEGATIVE [facility] Wilfrid Giang Work Phone: [phone] Specific gravity (U) [Rel density] 1.006 1 See Below [facility] Wilfrid Giang Work Phone: [phone] Comment on above: Reference Range: 1.0 05 - 1.035 Urinalysis Negative NEGATIVE [facility] Wilfrid Giang Work Phone: [phone] Urinalysis <2.0 0.0 - 1.9 [facility] Wilfridjodi Giang Work Phone: [phone] Urinalysis CLEAR CLEAR [facility] Wilfridjodi Giang Work Phone: [phone] Vancomycin Level, Randomon 0 10-27-2022 Vancomycin [Mass/Vol] 13.7 ug/mL [facility] Wilfrid Giang Work Phone: [phone] Comment on above: .Therapeutic Ranges: Peak: All ages: 30.0-40.0 ug/mL. Trough: Age <18y: 5.0-10.0 ug/mL. Age >/= 18y: 5.0-20.0 ug/mL. Vancomycin trough concentrations drawn immediately prior to the next dose at steady-state are preferred for monitoring patients treated with vancomycin. Ref.: Am J Health-Syst Pharm 66: 83-98, 2009. ANGIOTENSIN CONV ENZYMEon ANGIOTENSIN CONV ENZYME <10 Low 16-85 U [facility] Comment on above: Result Comment: Perf ormed By: [employer] [address] [place] [address] Hash Slinger: Kyle Hyatt MD, PhD Performed By: #### U A #### [facility] [address] [place] [address] Daily Progress Note-Medicine on 10-26-2022 Daily Progress Note-Medicine Service: Medicine Subjective Data: GRACIE BANUELOS is a 57 year old Female who is Hospital Day # 4. No overnight events. Pt states the swelling in her right eye is better and less pain at rest and with movement. Still has sensitivity to light. She endorses 4 episodes of diarrhea. Objective Data: Objective Information: T PRBPMAPSpO2 [id number]/9594% Date/Time10/26 3: 3: 3: 3: 3:37 Range(36.3C - 37.5C ) (82 - 102 ) (16 - 18 ) (106 - 145 )/ (68 - 95 ) (91% - 94% ) Highest temp of 37.5 C was recorded at 10/25 13:31 Pain reported at 10/26 3:37: 5 = Moderate Physical Exam by System: Eyes: Right eye less erythematous compared to the day before. Pain with movement. crosses midline. Difficulty with abduction. Pupils equal and reactive bilaterally. Respiratory/Thorax: Patent airways, CTAB, normal breath sounds with good chest expansion, Cardiovascular: Regular, rate and rhythm, no murmurs Gastrointestinal: Nondistended, soft, non-tender, no rebound tenderness or guarding, no organomegaly, Neurological: alert and oriented x3, intact senses, motor, response and normal strength Medication: Medications: Continuous Medications --------- No continuous medications are active Scheduled Medications --------- 1. Acetaminophen: 975 mg Oral Every 8 Hours 2. ARIPiprazole: 5 mg Oral Every Morning 3. Enoxaparin SubCutaneous: 40 mg SubCutaneous Every 24 Hours 4. Erythromycin 0.5% Ophthalmic: 0.5 inch(es) Right Eye Every 6 Hours 5. Fluticasone 100 microgram - Vilanterol 25 microgram/ Inh: 1 inhalation Inhalation Every 24 Hours 6. Lisinopril: 10 mg Oral Daily 7. Mirtazapine: 45 mg Oral At Bedtime 8. Pancrelipase (Creon 24,000): 1 capsule(s) Oral 3 Times a Day With Meals 9. Pantoprazole: 40 mg Oral Daily 10. Piperacillin - Tazobactam 3.375 gram/Iso-osmotic 50 mL Premix IVPB: 50 mL IntraVenous Piggyback Every 6 Hours 11. Simvastatin: 20 mg Oral At Bedtime 12. Tiotropium Respimat 2.5 microgram/ Inhalation MDI: 2 inhalation Inhalation Every 24 Hours 13. Vancomycin - RPh to Dose - IV Piggy Back: 1 each As Specified Variable PRN Medications --------- 1. Albuterol 90 micrograms/ Inhalation MDI: 2 inhalation Inhalation Every 6 Hours 2. diphenhydrAMINE: 25 mg Oral Every 4 Hours 3. hydrOXYzine Hydrochloride (ATARAX): 25 mg Oral Every 6 Hours 4. Loperamide: 2 mg Oral Every 4 Hours 5. oxyCODONE Immediate Release: 5 mg Oral Every 6 Hours 6. Phenylephrine 0.25% Topical (Preparation H): 1 application(s) Topical Every 8 Hours 7. Polyethylene Glycol: 17 gram(s) Oral Daily 8. Sodium Chloride 0.9% Injectable Flush: 10 mL IntraVenous Flush Every 8 Hours and as Needed Recent Lab Results: Results: CBC: 10/25/2022 09:24 \\ Hgb / \\ 11.5 L / WBC Plt 10.1 306 / Hct \\ / 34.5 L \\ RBC: 4.23 MCV: 82 RFP: 10/25/2022 09:24 NA+ Cl- BUN / 135 L 101 10 / --------- Glucose ---- 104 H K+ HCO3- Creat \\ 3.7 25 1.09 H \\ Calcium : 9.0Anion Gap : 13 Albumin : 3.3 L Phos : 4.3 Assessment and Plan: Code Status: Code StatusFull Code Assessment: Assessment/Plan: 57 year old woman presenting as a transfer form outside hospital for further evaluation of right orbit pain/swelling/concern for infiltrative mass vs. infection. Current workup favors infection vs. infiltrative mass rather than autoimmune process. Given elevated inflammatory markers infection seems most likely. Plan to continue IV antibiotics and consult ophthalmology in AM for possible cut-down biopsy. Defer need for ENT consultation to opthtalmology. Remainder of management of chronic conditions as below. 10/26 Updates: - Developed rash on upper back / back of neck; previously noted urticaria to PCN. Continue with zosyn with as needed benadryl/atarax. Can consider alternative abx if further decompensation - Dc morphine and de-escalate oxycodone 5 mg from q4 hours to every 6hours - No plan for biopsy per Ophthalmology/ENT; continue to follow recc - CHUY 2/ vanc; dosing per pharmacy (trough this PM) - Imodium for diarrhea #Preseptal Cellulitis vs. Infiltrative Mass -Presence of symptoms on and off for months without subjective improvement despite 5 days of broad spectrum antibiotics would favor neoplasm/mass but presence of elevated ESR/CRP and neutrophilia suggest inflammatory process -ENT scope at without concern for invasive fungal infection, thus will treat with antibacterial agents only -Vancomycin and pip/tazo continued -Oculoplastics/ophthalm ology consulted - ID consulted recommends continuing current abx regimen - ENT consulted they referred the biopsy to oculoplastics - Oculoplastics recommends waiting for the next few days for any improvement on antibiotics. (more content not included)... Normal [facility] Daily Progress Note-Ophthalm ologyon 10-26-2022 Daily Progress Note-Ophthalmology Service: Ophthalmology Subjective Data: GRACIE BANUELOS is a 57 year old Female who is Hospital Day # 4. Objective Data: Objective Information: T PRBPMAPSpO2 [id number]/[id number]% Date/Time10/26 3: 12: 12: 12: 3:37 Range(36.3C - 37.5C ) (75 - 102 ) (16 - 18 ) (106 - 145 )/ (68 - 95 ) (91% - 94% ) Highest temp of 37.5 C was recorded at 10/25 13:31 Pain reported at 10/26 11:41: 8 = Severe Recent Lab Results: Results: CBC: 10/24/2022 08:44 \\ Hgb / \\ 11.4 L / WBC Plt 10.5 322 / Hct \\ / 34.0 L \\ RBC: 4.16 MCV: 82 Neutrophil %: 63.8 CMP: 10/24/2022 08:44 NA+ Cl- BUN / 139 103 9 / --------- Glucose ---- 95 K+ HCO3- Creat \\ 4.1 25 0.92 \\ \\ T Bili / \\ 0.3 / AST x ---- x ALT 26 x ---- x 23 / Alk P \\ / 107 \\ Calcium : 9.2 Anion Gap : 15 Albumin : 3.6 T Protein : 6.4 Assessment and Plan: Code Status: Code StatusFull Code Assessment: Reason for consult: right eye pain HPI: This 57 year old woman with a history of COPD, HTN, current tobacco use disorder, and alcohol use disorder presents for evaluation of right eye pain. She reports ongoing right eye pain that is 8/10 and is worse with movement. She feels that her vision is a little blurry but not be much. She sometimes sees double vision that goes away when she closes either eye. One month ago she developed right upper and lower eyelid swelling and redness, as well as mild pain. Over several weeks the eyelid swelling and pain progressed. On 10/19/22 she presented to the [place] [facility] and CT orbits showed findings concerning for right orbital cellulitis. WBC was reportedly 13.9, ESR 75, and CRP 42.6. She was prescribed clindamycin to take at home, but her pain only worsened and she presented to [facility] on 10/20/22 for further management. MRI orbits showed diffuse infiltration of right retroantral, extraconal fat, pterygopalatine fossa, inferior and lateral rectus muscles, and muscles of mastication. She was started on Vancomycin and Zosyn. ENT performed bedside endoscopy and did not see evidence of invasive fungal sinusitis. Denies flashes of light, floating spots, or sudden vision loss. Past Medical History: as above Family History: reviewed and not pertinent to chief complaint Medications: please refer to medication reconciliation Allergies: please refer to patient allergy list OCULAR EXAMINATION: Near VA OD 20/40, with pinhole occluder I don't see anything; OS 20/25 PHNI Pupils: 3>2 OU, briskly reactive without RAPD OU IOP: OD 17, 16 OS 12 Motility: OD -2 infraduction, -1 abduction; OS full Alignment: right hypertropia, comitant in all directions of gaze Confrontation visual sherman: Full to count fingers OU Color vision: 08/08 OU ANTERIOR SEGMENT: OD: Lids/Lashes: trace RUL and RLL edema, 2-3+ erythema of preseptal and periorbital skin, MRD1 2.0 mm Conjunctiva: trace-to-1+ diffuse injection, 1+ dependent chemosis (no chemosis of superior conjunctiva visualized) Cornea: clear stroma, no staining with fluorescein AC: deep and quiet Iris: round and reactive Lens: NS OS: Lids/Lashes: normal anatomy and position, MRD1 4.0 mm Conjunctiva: white and quiet Cornea: clear AC: deep and quiet Iris: round and reactive Lens: NS DILATED FUNDUS EXAM: (Dilated with 1% tropicamide and 2.5% phenylephrine) OD: Cup-to-disc ratio: 0.45 Optic nerve: pink with sharp margins Vitreous: clear Macula: flat and attached without lesions Vessels: normal course and caliber Periphery: no holes, tears, or detachments OS: Cup-to-disc ratio: 0.45 Optic nerve: pink with sharp margins Vitreous: clear Macula: flat and attached without lesions Vessels: normal course and caliber Periphery: no holes, tears, or detachments Imaging 10/19/22 CT Orbit Sella Inner, by report from [facility] shows: 1. Marked abnormality of the soft tissues of the RIGHT orbit including preseptal soft tissue swelling consistent with a cellulitis. Extensive enhancement of the conjunctival surface consistent with extensive conjunctivitis. There is enhancement of the RIGHT lacrimal gland consistent with dacryoadenitis. 2. Significant soft tissue thickening and edema along the anterior lateral aspect of the extraconal compartment of the RIGHT orbit. Findings consistent with orbital cellulitis, however no organized fluid collections or orbital abscess noted. No evidence of orbital compartment syndrome. 3. Normal appearance of the globes, ocular lenses and optic nerves bilaterally. 4. Normal appearance of the soft tissues of the LEFT orbit. 5. Chronic RIGHT maxillary sinus mucosal thickening. 10/21/22 MRI Head, which I personally reviewed, by report from [facility] shows Abnormal infiltration throughout the right retroan (more content not included)... Normal [facility] RENAL FUNCTION PANELon 10-26 Albumin [Mass/Vol] 3.9 g/dL Normal 3.4 - 5.0 [facility] Comment on above: Performed By: #### U A #### [facility] [address] [place] [address] Anion gap [Moles/Vol] 14 mmol/L Normal 10 - 20 [facility] Comment on above: Performed By: #### U A #### [place] [address] [place] [address] Calcium [Mass/Vol] 9.2 mg/dL Normal 8.6 - 10.6 [facility] Comment on above: Performed By: #### U A #### [place] [address] [place] [address] Chloride [Moles/Vol] 102 mmol/L Normal 98 - 107 [facility] Comment on above: Performed By: #### U A #### [facility] [address] [place] [address] Creatinine [Mass/Vol] 1.57 mg/dL High 0.50 - 1.05 [facility] Comment on above: Performed By: #### U A #### [place] [address] [place] [address] GFR/1.73 sq M.predicted among non-blacks MDRD (S/P/Bld) [Vol rate/Area] 38 mL/min/{1.73_m2} Abnormal >90 [facility] Comment on above: Result Comment: CALC ULATIONS OF ESTIMATED GFR ARE PERFORMED USING THE 2020 CKD-EPI STUDY REFIT EQUATION WITHOUT THE RACE VARIABLE FOR THE IDMS-TRACEABLE CREATININE METHODS. https://jasn.asnjournals.org/content/early//ASN.2020 770383 Performed By: #### U A #### [facility] [address] [place] [address] Glucose [Mass/Vol] 124 mg/dL High 74 - 99 [facility] Comment on above: Performed By: #### U A #### [facility] [address] [place] [address] HCO3 (Bld) [Moles/Vol] 24 mmol/L Normal 21 - 32 [facility] Comment on above: Performed By: #### U A #### [facility] [address] [place] [address] Phosphate [Mass/Vol] 5.3 mg/dL High 2.5 - 4.9 [facility] Comment on above: Result Comment: The performance characteristics of phosphorus testing in heparinized plasma have been validated by the individual laboratory site where testing is performed. Testing on heparinized plasma is not approved by the FDA; however, such approval is not necessary. Performed By: #### U A #### [facility] [address] [place] [address] Potassium [Moles/Vol] 4.1 mmol/L Normal 3.5 - 5.3 [facility] Comment on above: Performed By: #### U A #### [facility] [address] [place] [address] Sodium [Moles/Vol] 136 mmol/L Normal 136 - 145 [facility] Comment on above: Performed By: #### U A #### [facility] [address] [place] [address] Urea nitrogen [Mass/Vol] 15 mg/dL Normal 6 - 23 [facility] Comment on above: Performed By: #### U A #### [facility] [address] [place] [address] Renal Function Panelon 10-26 Albumin BCP dye [Mass/Vol] 3.9 g/dL 3.4 - 5.0 [facility] Work Phone: [phone] Anion gap [Moles/Vol] 14 mmol/L 10 - 20 [facility] Work Phone: [phone] Calcium [Mass/Vol] 9.2 mg/dL 8.6 - 10.6 [facility] Work Phone: [phone] Chloride [Moles/Vol] 102 mmol/L 98 - 107 [facility] Work Phone: [phone] CO2 [Moles/Vol] 24 mmol/L 21 - 32 [facility] ne- [facility] Work Phone: [phone] Creatinine [Mass/Vol] 1.57 mg/dL above high threshold See Below [facility] Work Phone: [phone] Comment on above: Reference Range: 0.5 0 - 1.05 Glucose [Mass/Vol] 124 mg/dL above high threshold 74 - 99 [facility] Work Phone: [phone] Phosphate [Mass/Vol] 5.3 mg/dL above high threshold 2.5 - 4.9 [facility] Work Phone: [phone] Comment on above: The performance bruce acteristics of phosphorus testing in heparinized plasma have been validated by the individual laboratory site where testing is performed. Testing on heparinized plasma is not approved by the FDA; however, such approval is not necessary. Potassium [Moles/Vol] 4.1 mmol/L 3.5 - 5.3 [facility] Work Phone: Sodium [Moles/Vol] 136 mmol/L 136 - 145 [facility] Work Phone: [phone] Urea nitrogen [Mass/Vol] 15 mg/dL 6 - 23 [facility] Work Phone: Renal Function Panel 38 {mL/min/1.73m2} Abnormal >90 [facility] Work Phone: Comment on above: CALCULATIONS OF APVAN MATED GFR ARE PERFORMED USING THE 2020 CKD-EPI STUDY REFIT EQUATION WITHOUT THE RACE VARIABLE FOR THE IDMS-TRACEABLE CREATININE METHODS.https://jasn.asnjournals.org/content/early// ASN.8435975239 VANCOMYCINon 10-26-2022 VANCOMYCIN 14.6 ug/mL Normal [facility] Comment on above: Result Comment: .The rapeutic Ranges: Peak: All ages: 30.0-40.0 ug/mL . Trough: Age <18y: 5.0-10.0 ug/mL . Age >/= 18y: 5.0-20.0 ug/mL . Vancomycin trough concentrations drawn immediately prior to the next dose at steady-state are preferred for monitoring patients treated with vancomycin. Ref.: Am J Health-Syst Pharm 66: 83-98, 2009. Performed By: #### V ANCU #### [facility] [address] [place] [address] Vancomycin Level, Randomon 0 10-26-2022 Vancomycin [Mass/Vol] 14.6 ug/mL [facility] Work Phone: Comment on above: .Therapeutic Ranges: Peak: All ages: 30.0-40.0 ug/mL. Trough: Age <18y: 5.0-10.0 ug/mL. Age >/= 18y: 5.0-20.0 ug/mL. Vancomycin trough concentrations drawn immediately prior to the next dose at steady-state are preferred for monitoring patients treated with vancomycin. Ref.: Am J Health-Syst Pharm 66: 83-98, 2009. Angiotensin Converting Enzym e, Serumon 10-25-2022 Angiotensin converting enzyme [Catalytic activity/Vol] U/L below low threshold 16-85 [facility] Work Phone: Comment on above: Performed By: RAJENDRA [address] [place] [address], [place] [id number] Director: Kyle Hyatt MD, PhD CBCon 10-25-2022 Erythrocyte distribution width (RBC) [Ratio] 13.3 % Normal 11.5 - 14.5 [facility] Comment on above: Performed By: #### V ANCU #### [facility] [address] [place] [address] Hematocrit (Bld) [Volume fraction] 34.5 % Low 36.0 - 46.0 [facility] Comment on above: Performed By: #### V ANCU #### [facility] [address] [place] [address] Hemoglobin (Bld) [Mass/Vol] 11.5 g/dL Low 12.0 - 16.0 [facility] Comment on above: Performed By: #### V ANCU #### [facility] [address] [place] [address] MCHC (RBC) [Mass/Vol] 33.3 g/dL Normal 32.0 - 36.0 [facility] Comment on above: Performed By: #### V ANCU #### [facility] [address] [place] [address] MCV (RBC) [Entitic vol] 82 fL Normal 80 - 100 [facility] Comment on above: Performed By: #### V ANCU #### [facility] [address] [place] [address] NUCLEATED RBC 0.0 /100 WBC Normal 0.0-0.0 [facility] Comment on above: Performed By: #### V ANCU #### [facility] [address] [place] [address] Platelets (Bld) [#/Vol] 306 10*3/uL Normal 150 - 450 [facility] Comment on above: Performed By: #### V ANCU #### [facility] [address] [place] [address] RBC 4.23 x10E12/L Normal 4.00 - 5.20 [facility] Comment on above: Performed By: #### V ANCU #### [facility] [address] [place] [address] WBC (Bld) [#/Vol] 10.1 10*3/uL Normal 4.4 - 11.3 [facility] Comment on above: Performed By: #### V ANCU #### [facility] [address] [place] [address] Daily Progress Note-Medicine on 10-25-2022 Daily Progress Note-Medicine Service: Medicine Subjective Data: GRACIE BANUELOS is a 57 year old Female who is Hospital Day # 3. No overnight events. Pt states the swelling in her right eye is better. She endorses at least 3 episodes of diarrhea a day since she came here. Objective Data: Objective Information: T PRBPMAPSpO2 [id number]% Date/Time10/25 6: 6: 6: 6: 6:08 Range(36C - 36.7C ) (82 - 102 ) (18 - 18 ) (93 - 151 )/ (62 - 84 ) (91% - 95% ) Pain reported at 10/25 10:54: 7 = Severe Physical Exam by System: Eyes: Right eye less erythematous compared to the day before. Pain with movement. crosses midline. Difficulty with abduction. Pupils equal and reactive bilaterally. Respiratory/Thorax: Patent airways, CTAB, normal breath sounds with good chest expansion, Cardiovascular: Regular, rate and rhythm, no murmurs Gastrointestinal: Nondistended, soft, non-tender, no rebound tenderness or guarding, no organomegaly, Neurological: alert and oriented x3, intact senses, motor, response and normal strength Medication: Medications: 1. Vancomycin - RPh to Dose - IV Piggy Back: 1 each As Specified Variable ANTI-INFECTIVES: 1. Piperacillin - Tazobactam 3.375 gram/Iso-osmotic 50 mL Premix IVPB: 50 mL IntraVenous Piggyback Every 6 Hours CARDIOVASCULAR AGENTS: 1. Lisinopril: 10 mg Oral Daily CENTRAL NERVOUS SYSTEM AGENTS: 1. Acetaminophen: 975 mg Oral Every 8 Hours 2. Morphine Injectable: 1 mg IntraVenous Push Every 4 Hours PRN 3. oxyCODONE Immediate Release: 5 mg Oral Every 4 Hours PRN 4. hydrOXYzine Hydrochloride (ATARAX): 25 mg Oral Every 6 Hours PRN COAGULATION MODIFIERS: 1. Enoxaparin SubCutaneous: 40 mg SubCutaneous Every 24 Hours GASTROINTESTINAL AGENTS: 1. Loperamide: 2 mg Oral Every 4 Hours PRN 2. Pancrelipase (Creon 24,000): 1 capsule(s) Oral 3 Times a Day With Meals 3. Polyethylene Glycol: 17 gram(s) Oral Daily PRN 4. Pantoprazole: 40 mg Oral Daily METABOLIC AGENTS: 1. Simvastatin: 20 mg Oral At Bedtime NUTRITIONAL PRODUCTS: 1. Sodium Chloride 0.9% Injectable Flush: 10 mL IntraVenous Flush Every 8 Hours and as Needed PRN PSYCHOTHERAPEUTIC AGENTS: 1. Mirtazapine: 45 mg Oral At Bedtime 2. ARIPiprazole: 5 mg Oral Every Morning RESPIRATORY AGENTS: 1. diphenhydrAMINE: 25 mg Oral Every 4 Hours PRN 2. Albuterol 90 micrograms/ Inhalation MDI: 2 inhalation Inhalation Every 6 Hours PRN 3. Fluticasone 100 microgram - Vilanterol 25 microgram/ Inh: 1 inhalation Inhalation Every 24 Hours 4. Tiotropium Respimat 2.5 microgram/ Inhalation MDI: 2 inhalation Inhalation Every 24 Hours TOPICAL AGENTS: 1. Phenylephrine 0.25% Topical (Preparation H): 1 application(s) Topical Every 8 Hours PRN 2. Erythromycin 0.5% Ophthalmic: 0.5 inch(es) Right Eye Every 6 Hours Recent Lab Results: Results: CBC: 10/25/2022 09:24 \\ Hgb / \\ 11.5 L / WBC Plt 10.1 306 / Hct \\ / 34.5 L \\ RBC: 4.23 MCV: 82 RFP: 10/25/2022 09:24 NA+ Cl- BUN / 135 L 101 10 / --------- Glucose ---- 104 H K+ HCO3- Creat \\ 3.7 25 1.09 H \\ Calcium : 9.0Anion Gap : 13 Albumin : 3.3 L Phos : 4.3 Assessment and Plan: Code Status: Code StatusFull Code Assessment: Assessment/Plan: 57 year old woman presenting as a transfer form outside hospital for further evaluation of right orbit pain/swelling/concern for infiltrative mass vs. infection. Current workup favors infection vs. infiltrative mass rather than autoimmune process. Given elevated inflammatory markers infection seems most likely. Plan to continue IV antibiotics and consult ophthalmology in AM for possible cut-down biopsy. Defer need for ENT consultation to opthtalmology. Remainder of management of chronic conditions as below. 10/25 Updates: - No new recs, pt waiting for possible biopsy on Thursday #Preseptal Cellulitis vs. Infiltrative Mass -Presence of symptoms on and off for months without subjective improvement despite 5 days of broad spectrum antibiotics would favor neoplasm/mass but presence of elevated ESR/CRP and neutrophilia suggest inflammatory process -ENT scope at without concern for invasive fungal infection, thus will treat with antibacterial agents only -Vancomycin and pip/tazo continued -Oculoplastics/ophthalm ology consulted - ID consulted recommends continuing current abx regimen - ENT consulted they referred the biopsy to oculoplastics - Oculoplastics recommends waiting for the next few days for any improvement on antibiotics. If no improvement is noticed biopsy is recommended -Pain control with oxycodone, morphine for breakthrough # Diarrhea: Pt stated that it started the day she left [facility]. C. diff work up at [facility] came back negative - Likely due to Abx - Started on Immodium as needed - Will consider C diff PC (more content not included)... Normal [facility] Daily Progress Note-Ophthalm ologyon 10-25-2022 Daily Progress Note-Ophthalmology Service: Ophthalmology Subjective Data: GRACIE BANUELOS is a 57 year old Female who is Hospital Day # 3. Objective Data: Objective Information: T PRBPMAPSpO2 [id number]/6893% Date/Time10/25 6: 6: 6: 6: 6:08 Range(36C - 36.7C ) (82 - 102 ) (18 - 18 ) (93 - 151 )/ (62 - 84 ) (91% - 95% ) Pain reported at 10/25 6:08: 7 = Severe Recent Lab Results: Results: CBC: 10/24/2022 08:44 \\ Hgb / \\ 11.4 L / WBC Plt 10.5 322 / Hct \\ / 34.0 L \\ RBC: 4.16 MCV: 82 Neutrophil %: 63.8 CMP: 10/24/2022 08:44 NA+ Cl- BUN / 139 103 9 / --------- Glucose ---- 95 K+ HCO3- Creat \\ 4.1 25 0.92 \\ \\ T Bili / \\ 0.3 / AST x ---- x ALT 26 x ---- x 23 / Alk P \\ / 107 \\ Calcium : 9.2 Anion Gap : 15 Albumin : 3.6 T Protein : 6.4 Assessment and Plan: Code Status: Code StatusFull Code Assessment: Reason for consult: right eye pain HPI: This 57 year old woman with a history of COPD, HTN, current tobacco use disorder, and alcohol use disorder presents for evaluation of right eye pain. She reports ongoing right eye pain that is 8/10 and is worse with movement. She feels that her vision is a little blurry but not be much. She sometimes sees double vision that goes away when she closes either eye. One month ago she developed right upper and lower eyelid swelling and redness, as well as mild pain. Over several weeks the eyelid swelling and pain progressed. On 10/19/22 she presented to the [place] [facility] and CT orbits showed findings concerning for right orbital cellulitis. WBC was reportedly 13.9, ESR 75, and CRP 42.6. She was prescribed clindamycin to take at home, but her pain only worsened and she presented to [facility] on 10/20/22 for further management. MRI orbits showed diffuse infiltration of right retroantral, extraconal fat, pterygopalatine fossa, inferior and lateral rectus muscles, and muscles of mastication. She was started on Vancomycin and Zosyn. ENT performed bedside endoscopy and did not see evidence of invasive fungal sinusitis. Denies flashes of light, floating spots, or sudden vision loss. Past Medical History: as above Family History: reviewed and not pertinent to chief complaint Medications: please refer to medication reconciliation Allergies: please refer to patient allergy list OCULAR EXAMINATION: Near VA OD 20/40, with pinhole occluder I don't see anything; OS 20/25 PHNI Pupils: 3>2 OU, briskly reactive without RAPD OU IOP: OD 17, 16 OS 12 Motility: OD -2 infraduction, -1 abduction; OS full Alignment: right hypertropia, comitant in all directions of gaze Confrontation visual sherman: Full to count fingers OU Color vision: 08/08 OU ANTERIOR SEGMENT: OD: Lids/Lashes: trace RUL and RLL edema, 2-3+ erythema of preseptal and periorbital skin, MRD1 2.0 mm Conjunctiva: trace-to-1+ diffuse injection, 1+ dependent chemosis (no chemosis of superior conjunctiva visualized) Cornea: clear stroma, no staining with fluorescein AC: deep and quiet Iris: round and reactive Lens: NS OS: Lids/Lashes: normal anatomy and position, MRD1 4.0 mm Conjunctiva: white and quiet Cornea: clear AC: deep and quiet Iris: round and reactive Lens: NS DILATED FUNDUS EXAM: (Dilated with 1% tropicamide and 2.5% phenylephrine) OD: Cup-to-disc ratio: 0.45 Optic nerve: pink with sharp margins Vitreous: clear Macula: flat and attached without lesions Vessels: normal course and caliber Periphery: no holes, tears, or detachments OS: Cup-to-disc ratio: 0.45 Optic nerve: pink with sharp margins Vitreous: clear Macula: flat and attached without lesions Vessels: normal course and caliber Periphery: no holes, tears, or detachments Imaging 10/19/22 CT Orbit Sella Inner, by report from [facility] shows: 1. Marked abnormality of the soft tissues of the RIGHT orbit including preseptal soft tissue swelling consistent with a cellulitis. Extensive enhancement of the conjunctival surface consistent with extensive conjunctivitis. There is enhancement of the RIGHT lacrimal gland consistent with dacryoadenitis. 2. Significant soft tissue thickening and edema along the anterior lateral aspect of the extraconal compartment of the RIGHT orbit. Findings consistent with orbital cellulitis, however no organized fluid collections or orbital abscess noted. No evidence of orbital compartment syndrome. 3. Normal appearance of the globes, ocular lenses and optic nerves bilaterally. 4. Normal appearance of the soft tissues of the LEFT orbit. 5. Chronic RIGHT maxillary sinus mucosal thickening. 10/21/22 MRI Head, which I personally reviewed, by report from [facility] shows Abnormal infiltration throughout the right retroantral and extraconal fat as well as the pterygopalatine fo (more content not included)... Normal [facility] Laboratory - Hematology and Cell countson 10-25-2022 Erythrocyte distribution width (RBC) [Ratio] 13.3 % See Below [facility] Work Phone: Comment on above: Reference Range: 11. 5 - 14.5 Hematocrit (Bld) [Volume fraction] 34.5 % below low threshold See Below [facility] Work Phone: [phone] Comment on above: Reference Range: 36. 0 - 46.0 Hemoglobin (Bld) [Mass/Vol] 11.5 g/dL below low threshold See Below [facility] Work Phone: [phone] Comment on above: Reference Range: 12. 0 - 16.0 MCHC (RBC) [Mass/Vol] 33.3 g/dL See Below [facility] Work Phone: Comment on above: Reference Range: 32. 0 - 36.0 MCV (RBC) [Entitic vol] 82 fL 80 - 100 M KayleyUlices Giang Work Phone: [phone] Platelets (Bld) [#/Vol] 306 10*3/uL 150 - 450 [facility] Work Phone: [phone] RBC (Bld) [#/Vol] 4.23 {x10E12/L} See Below [facility] JeanUlices Giang Work Phone: Comment on above: Reference Range: 4.0 0 - 5.20 WBC (Bld) [#/Vol] 10.1 10*3/uL 4.4 - 11.3 [facility] lou Giang Work Phone: Laboratory - Microbiology an d Antimicrobial susceptibilityOrdered By: Dr. Dykes on 10-25-2022 Bacteria identified Cx Nom (Bld) No growth in 5 days. [facility] Lysozyme, Serumon 10-25-2022 Lysozyme [Mass/Vol] 9.0 ug/mL 2.5-12.9 [facility] Wilfrid [facility]ang Work Phone: Comment on above: Effective November 17, 2022 the reference interval for Lysozyme, Serum will be changing to: 0 - 6 months Not Estab. 7 months - 5 years 3.0 - 7.4 6 - 40 years 3.3 - 7.1 41 - 60 years 3.4 - 7.6 61 - 70 years 3.6 - 8.1 71 - 80 years 3.7 - 8.5 >80 years 4.2 - 9.5 No Panel Informationon 10-25 0.0 {/100_WBC} 0.0-0.0 [facility] e[facility]ierra [facility]ang Work Phone: RENAL FUNCTION PANELon 10-25 Albumin [Mass/Vol] 3.3 g/dL Low 3.4 - 5.0 [facility] Comment on above: Performed By: #### U A #### [facility] [address] [place] [address] Anion gap [Moles/Vol] 13 mmol/L Normal 10 - 20 [facility] Comment on above: Performed By: #### U A #### [place] [address] [place] [address] Calcium [Mass/Vol] 9.0 mg/dL Normal 8.6 - 10.6 [facility] Comment on above: Performed By: #### U A #### [facility] [address] [place] [address] Chloride [Moles/Vol] 101 mmol/L Normal 98 - 107 [facility] Comment on above: Performed By: #### U A #### [facility] [address] [place] [address] Creatinine [Mass/Vol] 1.09 mg/dL High 0.50 - 1.05 [facility] Comment on above: Performed By: #### U A #### [facility] [address] [place] [address] GFR/1.73 sq M.predicted among non-blacks MDRD (S/P/Bld) [Vol rate/Area] 58 mL/min/{1.73_m2} Abnormal >90 [facility] Comment on above: Result Comment: CALC ULATIONS OF ESTIMATED GFR ARE PERFORMED USING THE 2020 CKD-EPI STUDY REFIT EQUATION WITHOUT THE RACE VARIABLE FOR THE IDMS-TRACEABLE CREATININE METHODS. https://jasn.asnjournals.org/content/early//ASN.2020 317560 Performed By: #### U A #### [facility] [address] [place] [address] Glucose [Mass/Vol] 104 mg/dL High 74 - 99 [facility] Comment on above: Performed By: #### U A #### [facility] [address] [place] [address] HCO3 (Bld) [Moles/Vol] 25 mmol/L Normal 21 - 32 [facility] Comment on above: Performed By: #### U A #### [facility] [address] [place] [address] Phosphate [Mass/Vol] 4.3 mg/dL Normal 2.5 - 4.9 [facility] Comment on above: Result Comment: The performance characteristics of phosphorus testing in heparinized plasma have been validated by the individual laboratory site where testing is performed. Testing on heparinized plasma is not approved by the FDA; however, such approval is not necessary. Performed By: #### U A #### [facility] [address] [place] [address] Potassium [Moles/Vol] 3.7 mmol/L Normal 3.5 - 5.3 [facility] Comment on above: Performed By: #### U A #### [facility] [address] [place] [address] Sodium [Moles/Vol] 135 mmol/L Low 136 - 145 [facility] Comment on above: Performed By: #### U A #### [facility] [address] [place] [address] Urea nitrogen [Mass/Vol] 10 mg/dL Normal 6 - 23 [facility] Comment on above: Performed By: #### U A #### [facility] [address] [place] [address] RPR WITH TITER SYPHILIS ESTELLA TORINGon 10-25-2022 RPR MONITORING Canceled Normal [facility] Comment on above: Order Comment: TEST RPR WITH TITER SYPHILIS MONITORING WAS CANCELLED, 10/25/2022 00:46 RBS update.. Performed By: #### R PRSM #### [facility] [address] [place] [address] Lab Specimen Source Normal [facility] Comment on above: Order Comment: TEST RPR WITH TITER SYPHILIS MONITORING WAS CANCELLED, 10/25/2022 00:46 RBS update.. Performed By: #### R PRSM #### [facility] [address] [place] [address] Renal Function Panelon 10-25 Albumin BCP dye [Mass/Vol] 3.3 g/dL below low threshold 3.4 - 5.0 [facility] Wilfrid Giang Work Phone: Anion gap [Moles/Vol] 13 mmol/L 10 - 20 [facility] Wilfrid Giang Work Phone: Calcium [Mass/Vol] 9.0 mg/dL 8.6 - 10.6 [facility] ic[facility]- Wilfrid Giang Work Phone: Chloride [Moles/Vol] 101 mmol/L 98 - 107 [facility]- Wilfrid Giang Work Phone: CO2 [Moles/Vol] 25 mmol/L 21 - 32 [facility]- Wilfrid Giang Work Phone: Creatinine [Mass/Vol] 1.09 mg/dL above high threshold See Below [facility] Wilfrid Giang Work Phone: Comment on above: Reference Range: 0.5 0 - 1.05 Glucose [Mass/Vol] 104 mg/dL above high threshold 74 - 99 [facility] Wilfrid Giang Work Phone: Phosphate [Mass/Vol] 4.3 mg/dL 2.5 - 4.9 [facility] Wilfrid Giang Work Phone: [phone] Comment on above: The performance bruce acteristics of phosphorus testing in heparinized plasma have been validated by the individual laboratory site where testing is performed. Testing on heparinized plasma is not approved by the FDA; however, such approval is not necessary. Potassium [Moles/Vol] 3.7 mmol/L 3.5 - 5.3 [facility] Wilfrid Giang Work Phone: [phone] Sodium [Moles/Vol] 135 mmol/L below low threshold 136 - 145 [facility] Wilfrid Giang Work Phone: [phone] Urea nitrogen [Mass/Vol] 10 mg/dL 6 - 23 [facility] Wilfrid Giang Work Phone: [phone] Renal Function Panel 58 {mL/min/1.73m2} Abnormal >90 [facility] Work Phone: [phone] Comment on above: CALCULATIONS OF PAVAN MATED GFR ARE PERFORMED USING THE 2020 CKD-EPI STUDY REFIT EQUATION WITHOUT THE RACE VARIABLE FOR THE IDMS-TRACEABLE CREATININE METHODS.https://jasn.asnjournals.org/content/early/ ASN.2854215778 SYPHILIS SCREENING WITH REFL EXon 10-25-2022 SYPHILIS TOTAL AB Non-Reactive Normal NONREACTIVE [facility] Comment on above: Result Comment: No s ignificant level of Treponema pallidum antibody detected. 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 Performed By: #### U A #### [facility] [address] [place] [address] Lab Specimen Source Normal [facility] Comment on above: Performed By: #### U A #### [facility] [address] [place] [address] T. pallidum IgG+IgM IA Ql (S) Non-Reactive See Below [facility]- Wilfrid Giang Work Phone: Comment on above: SOURCE: Reference Ra nge: NONREACTIVENo significant level of Treponema pallidum antibody detected. 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 VANCOMYCIN,TROUGHon 10-25-19 23 VANCOMYCIN,TROUGH 27.0 ug/mL Critically high 5.0 - 20.0 [facility] Comment on above: Order Comment: VANCT CALLED TO BRANDI WAGONER, 10/25/2022 17:09 Result Comment: Vanc omycin levels should be interpreted in conjunction with the dose, disease being treated, vancomycin AGNIESZKA, time of draw (trough concentrations should be obtained just before the next dose at steady-state), and other clinical information. Trough concentrations of 15-20 ug/mL are desired for severe infections. Ref.: Am J Health-Syst Pharm 66: 83-98, 2009. VANCT CALLED TO BRANDI WAGONER, 10/25/2022 17:09 Performed By: #### A [facility] #### [facility] [employer] [address] [place] [address] Vancomycin Level, Troughon 0 10-25-2022 Vancomycin trough [Mass/Vol] 27.0 ug/mL Critically high 5.0 - 20.0 -[facility] Wilfrid Giang Work Phone: Comment on above: Vancomycin levels sh ould be interpreted in conjunction with the dose, disease being treated, vancomycin AGNIESZKA, time of draw (trough concentrations should be obtained just before the next dose at steady-state), and other clinical information. Trough concentrations of 15-20 ug/mL are desired for severe infections. Ref.: Am J Health-Syst Pharm 66: 83-98, 2008.VANCT CALLED TO BRANDI WAGONER, 10/25/2022 17:09 Admission Risk Screen - Adul ton 10-24-2022 Admission Risk Screen - Adult Allergies: Allergies: penicillin: Hives/Urticaria Patient Verification: New W ID Band Applied in my Departmentyes Patient Identity Verified Bypatient ID Band FULL Name, include Middle, spelling matches patient's ID used for verificationyes ID Band Matches Patient ID used for Verficationyes ID Band MRN Matches EMR MRNyes Visitor Restriction: Coronavirus Visitor Restriction: Reasonable restrictions to in-person visitors will be observed due to current coronavirus pandemic. Travel History: COVID-19 Screening Completedno exposure or symptoms Travel or Exposure Past 30 DaysNO travel to International locations in the past 30 days Ebola AlertFor Ebola-like Symptoms: Isolate Patient and Notify Provider/Anger Control Counselor For Contact: Notify Provider/Anger Control Counselor Advance Directive: Advance Directive/DNRno Advance Directive Information Givenpatient/family declined [place] Fall Screen: History of falling (immediate or previous)no (0) Secondary Diagnosisno (0) Intravenous Therapy/ Heparin/Saline Lockyes (20) Gait/Transferringnormal /bedrest/wheelchair (0) Ambulatory Aidsnone/bedrest/nurse assist (0) Mental Statusoriented to own ability (0) Score: Low risk (<25). Moderate risk (25-44). High risk (>44).20 [place] InterventionsLOW INTERVENTIONS: *patient oriented to surroundings and call system, * patient/family falls education completed and documented, *patients fall status communicated during bedside handoff, *whiteboard updated, *mode of toileting discussed with patient, *bed in low position with brakes locked, *call light in reach, * non-skid footwear Family Violence Screen: Are you or have you been threatened or abused physically, emotionally, or sexually by anyoneno Do you feel UNSAFE going back to the place where you are livingno Clinical assessment: Are there any apparent signs of injuries/behaviors that could be related to abuse/neglectno Social Service Consult for abuse/neglect needed this visitno Functional Screen: Functional Screen: In the recent/past 2-4 weeks, patient or family have noticedno issues that require a speech/language consult at this time AM-PAC- Basic Mobility/Daily Activity: Patient baseline bedboundno Turning from your back to your side while in a flat bed without using bedrailsnone Moving from lying on your back to sitting on the side of a flat bed without using bedrailsnone Moving to and from bed to chair (including a wheelchair)none Standing up from a chair using your arms (e.g. wheelchair or bedside chair) none To walk in hospital roomnone Climbing 3-5 steps with railingnone Basic Mobility - Total Score24 Putting on and taking off regular lower body clothingnone Bathing (including washing, rinsing, drying)none Putting on and taking off regular upper body clothingnone Toileting, which includes using toilet, bedpan or urinalnone Taking care of personal grooming such as brushing teethnone Eating Mealsa little Daily Activity - Total Score23 Learning Assessment (Patient): Patient is Able to be Assessed for Learningyes Factors Influencing Readiness to Learnacuteness of illness Factors that Impact Ability to Learnacuteness of illness Devices/Methods Used to Communicateglasses Learning Preferenceswritten material; video; verbal instruction Cultural Considerationsnone Developmental Considerationsnone Mu-Ism Considerationsnone Learning Assessment (Other Learner): Other learner availableno Depression Screen: During the past month, have you often been bothered by feeling down, depressed or hopelessno During the past month, have you often had little interest or pleasure in doing thingsno Have you had any thoughts of harming anyone elseno [place] Suicide: Risk Screen Not Applicable/Able to Answerable to be screened In the Past Month: Have you wished you were or could go to sleep and not wake upno In the Past Month: Have you had any actual thoughts of killing yourselfno Lifetime: Have you ever done, started to do, or prepared to do anything to end your lifeno [place] Suicide Risknegative Adult Nutrition Screen: Have you recently lost weight without tryingno Have you been eating poorly because of a decreased appetiteno Malnutrition Screening Tool Score0 Malnutrition Screening Tool RiskMST = 0 or 1 Not at risk. Eating well with little or no weight loss Nutrition Consult needed this visitno Can Patient Participate in Room Serviceyes, with assistance Patient requires Paper Dishes/Plastic Utensilsno Pain Screen: Pain Scalenumerical 0-10 Pain Scale Educationteaching provided Current Pain Level8 = Severe Acceptable Pain Level3 = Mild Expression of Pain (nonverbal)none Chronic Painno Spiritual Screen: Are there any cultural, spiritual, hoahaoism practices/values/needs that are important for us to knowno CAGE: Is this an inju (more content not included)... Normal [facility] C Reactive Protein, Serumon 10-24-2022 CRP [Mass/Vol] 6.50 mg/dL Abnormal -Ty Giang Work Phone: Comment on above: REF VALUE< 1.00 C-REACTIVE PROTEINon 023 C-REACTIVE PROTEIN 6.50 mg/dL Abnormal [facility] Comment on above: Result Comment: REF VALUE < 1.00 Performed By: #### U A #### [facility] [address] [place] [address] CBC AND DIFFERENTIALon 10-24 % AUTOMATED IMMATURE GRAN 0.5 % Normal 0.0 - 0.9 [facility] Comment on above: Result Comment: Iram ture Granulocyte Count (IG) includes promyelocytes, myelocytes and metamyelocytes but does not include bands. Percent differential counts (%) should be interpreted in the context of the absolute cell counts (cells/L). Performed By: #### C BCDF #### [facility] [address] [place] [address] Basophils (Bld) [#/Vol] 0.11 10*3/uL High 0.00 - 0.1 0 [facility] Comment on above: Performed By: #### C BCDF #### [facility] [address] [place] [address] Basophils/100 WBC (Bld) 1.1 % Normal 0.0 - 2.0 [facility] Comment on above: Performed By: #### C BCDF #### [facility] [address] [place] [address] Eosinophils (Bld) [#/Vol] 0.75 10*3/uL High 0.00 - 0.70 [facility] Comment on above: Performed By: #### C BCDF #### [facility] [address] [place] [address] Eosinophils/100 WBC (Bld) 7.2 % Normal 0.0 - 6.0 [facility] Comment on above: Performed By: #### C BCDF #### [facility] [address] [place] [address] Erythrocyte distribution width (RBC) [Ratio] 13.4 % Normal 11.5 - 14.5 [facility] Comment on above: Performed By: #### C BCDF #### [facility] [address] [place] [address] Hematocrit (Bld) [Volume fraction] 34.0 % Low 36.0 - 46.0 [facility] Comment on above: Performed By: #### C BCDF #### [facility] [address] [place] [address] Hemoglobin (Bld) [Mass/Vol] 11.4 g/dL Low 12.0 - 16.0 [facility] Comment on above: Performed By: #### C BCDF #### [facility] [address] [place] [address] Lymphocytes (Bld) [#/Vol] 1.67 10*3/uL Normal 1.20 - 4.80 [facility] Comment on above: Performed By: #### C BCDF #### [facility] [address] [place] [address] Lymphocytes/100 WBC (Bld) 16.0 % Normal 13.0 - 44.0 [facility] Comment on above: Performed By: #### C BCDF #### [facility] [address] [place] [address] MCHC (RBC) [Mass/Vol] 33.5 g/dL Normal 32.0 - 36.0 [facility] Comment on above: Performed By: #### C BCDF #### [facility] [address] [place] [address] MCV (RBC) [Entitic vol] 82 fL Normal 80 - 100 [facility] Comment on above: Performed By: #### C BCDF #### [facility] [address] [place] [address] Monocytes (Bld) [#/Vol] 1.19 10*3/uL High 0.10 - 1.0 0 [facility] Comment on above: Performed By: #### C BCDF #### [facility] [address] [place] [address] Monocytes/100 WBC (Bld) 11.4 % Normal 2.0 - 10.0 [facility] Comment on above: Performed By: #### C BCDF #### [facility] [address] [place] [address] Neutrophils (Bld) [#/Vol] 6.68 10*3/uL Normal 1.20 - 7.70 [facility] Comment on above: Performed By: #### C BCDF #### [facility] [address] [place] [address] Neutrophils/100 WBC (Bld) 63.8 % Normal 40.0 - 80.0 [facility] Comment on above: Performed By: #### C BCDF #### [facility] [address] [place] [address] NUCLEATED RBC 0.0 /100 WBC Normal 0.0-0.0 [facility] Comment on above: Performed By: #### C BCDF #### [facility] [address] [place] [address] Platelets (Bld) [#/Vol] 322 10*3/uL Normal 150 - 450 [facility] Comment on above: Performed By: #### C BCDF #### [facility] [address] [place] [address] RBC 4.16 x10E12/L Normal 4.00 - 5.20 [facility] Comment on above: Performed By: #### C BCDF #### [facility] [address] [place] [address] WBC (Bld) [#/Vol] 10.5 10*3/uL Normal 4.4 - 11.3 [facility] Comment on above: Performed By: #### C BCDF #### [facility] [address] [place] [address] COMPREHENSIVE PANELon 2022 Albumin [Mass/Vol] 3.6 g/dL Normal 3.4 - 5.0 [facility] Comment on above: Performed By: #### C MP #### [facility] [address] [place] [address] ALP [Catalytic activity/Vol] 107 U/L Normal 33 - 110 [facility] Comment on above: Performed By: #### C MP #### [facility] [address] [place] [address] ALT [Catalytic activity/Vol] 23 U/L Normal 7 - 45 [facility] Comment on above: Result Comment: Gretta ents treated with Sulfasalazine may generate falsely decreased results for ALT. Performed By: #### C MP #### [facility] [address] [place] [address] Anion gap [Moles/Vol] 15 mmol/L Normal 10 - 20 [facility] Comment on above: Performed By: #### C MP #### [facility] [address] [place] [address] AST [Catalytic activity/Vol] 26 U/L Normal 9 - 39 [facility] Comment on above: Performed By: #### C MP #### [facility] [address] [place] [address] Bilirubin [Mass/Vol] 0.3 mg/dL Normal 0.0 - 1.2 [facility] Comment on above: Performed By: #### C MP #### [facility] [address] [place] [address] Calcium [Mass/Vol] 9.2 mg/dL Normal 8.6 - 10.6 [facility] Comment on above: Performed By: #### C MP #### [facility] [address] [place] [address] Chloride [Moles/Vol] 103 mmol/L Normal 98 - 107 [facility] Comment on above: Performed By: #### C MP #### [facility] [address] [place] [address] Creatinine [Mass/Vol] 0.92 mg/dL Normal 0.50 - 1.05 [facility] Comment on above: Performed By: #### C MP #### [facility] [address] [place] [address] GFR/1.73 sq M.predicted among non-blacks MDRD (S/P/Bld) [Vol rate/Area] 72 mL/min/{1.73_m2} Normal >90 [facility] Comment on above: Result Comment: CALC ULATIONS OF ESTIMATED GFR ARE PERFORMED USING THE 2020 CKD-EPI STUDY REFIT EQUATION WITHOUT THE RACE VARIABLE FOR THE IDMS-TRACEABLE CREATININE METHODS. https://alkasn.asnjournals.org/content//ASN.2020 512445 Performed By: #### C MP #### [facility] [address] [place] [address] Glucose [Mass/Vol] 95 mg/dL Normal 74 - 99 [facility] Comment on above: Performed By: #### C MP #### [facility] [address] [place] [address] HCO3 (Bld) [Moles/Vol] 25 mmol/L Normal 21 - 32 [facility] Comment on above: Performed By: #### C MP #### [facility] [address] [place] [address] Potassium [Moles/Vol] 4.1 mmol/L Normal 3.5 - 5.3 [facility] Comment on above: Performed By: #### C MP #### [facility] [address] [place] [address] Protein [Mass/Vol] 6.4 g/dL Normal 6.4 - 8.2 [facility] Comment on above: Performed By: #### C MP #### [facility] [address] [place] [address] Sodium [Moles/Vol] 139 mmol/L Normal 136 - 145 [facility] Comment on above: Performed By: #### C MP #### [facility] [address] [place] [address] Urea nitrogen [Mass/Vol] 9 mg/dL Normal 6 - 23 [facility] Comment on above: Performed By: #### C MP #### [facility] [address] [place] [address] Clinical Event Note-AH@H Angelina astorga 10-24-2022 Clinical Event Note-AH@H Screen Clinical Event: Clinical Event Note: TopicAH@H Screen Details Patient was referred to AH@H program. Upon review with Provider and/or Social Assessment patient does not qualify for the program due to pt declined. Vicki Varela RNtransfer knitter Coordinator Electronic Signatures: Vicki Varela (CLIN COOR) (Signed 24-Oct-2022 15:07) Authored: Clinical Event Note Last Updated: 24-Oct-2022 15:07 by Vicki Varela (CLIN COOR) Normal [facility] Clinical Note - Pharmacy v2- Medication Educationon 10-24-2022 Clinical Note - Pharmacy v2-Medication Education Clinical Note - Pharmacy v2: Discharge Meds: Prescription [employer] Medications Home Medications Review Status for Reconciliation: Complete Med Status: Patient Currently Takes Medications Education: Document TopicMedication Education MedicationMeds to Beds: Patient declines Meds to Beds service at discharge. Sources used to confirm home medication list: Patient interview/ [facility] 10/20/2022 Additional comments: Patient was recently discharged from [facility] on 10/23/2022. Creon dosage was confirmed with patient of 24,000 units 1 capsule 3 times a day with meals. Medication reconciliation complete Please reach out via [employer] for questions Brandi Lr, PharmD, Meds Meds Ambulatory and Retail Services Is This Intervention Medication Reconciliation Relatedyes Time Roabtoah74 - 60 minutes Additional NotesDrug Name: mirtazapine 45 mg oral tablet Instructions: 1 tab(s) orally once (at bedtime) Drug Name: Creon 24,000 units oral delayed release capsule Instructions: 1 cap(s) orally 3 times a day (with meals) Drug Name: simvastatin 20 mg oral tablet Instructions: 1 tab(s) orally once (at bedtime) Drug Name: lisinopril 10 mg oral tablet Instructions: 1 tab(s) orally once a day Drug Name: hydrOXYzine hydrochloride 25 mg oral tablet Instructions: 1 tab(s) orally every 6 hours, As needed, Anxiety Drug Name: ARIPiprazole 5 mg oral tablet Instructions: 1 tab(s) orally once a day Drug Name: pantoprazole 40 mg oral delayed release tablet Instructions: 1 tab(s) orally once a day Drug Name: meloxicam 15 mg oral tablet Instructions: 1 tab(s) orally once a day Drug Name: cholecalciferol 50 mcg (2000 intl units) oral capsule Instructions: 1 cap(s) orally once a day Allergy: Allergies Summary Allergy Allergen: penicillin Type: Drug Reaction: Hives/Urticaria Electronic Signatures: Brandi Lr (PHARM STUD) (Signed 24-Oct-2022 17:09) Authored: Discharge Meds, Education, Allergy Constance Buckley ([facility]) (Signed 27-Oct-2022 09:36) Co-Signer: Discharge Meds, Education, Allergy Last Updated: 27-Oct-2022 09:36 by Constance Buckley ([facility]) Normal [facility] Complete Blood Count + Lisa lobo 10-24-2022 Basophils/100 WBC (Bld) 1.1 % 0.0 - 2.0 M KayleyMoxie JeanUlices Giang Work Phone: Erythrocyte distribution width (RBC) [Ratio] 13.4 % See Below Moxie JeanUlices Giang Work Phone: Comment on above: Reference Range: 11. 5 - 14.5 Hematocrit (Bld) [Volume fraction] 34.0 % below low threshold See Below PK CleanUlices Giang Work Phone: Comment on above: Reference Range: 36. 0 - 46.0 Hemoglobin (Bld) [Mass/Vol] 11.4 g/dL below low threshold See Below PK CleanUlices Giang Work Phone: Comment on above: Reference Range: 12. 0 - 16.0 Lymphocytes/100 WBC (Bld) 16.0 % See Below PK CleanUlices Giang Work Phone: Comment on above: Reference Range: 13. 0 - 44.0 MCHC (RBC) [Mass/Vol] 33.5 g/dL See Below PK Clean Ulices Giang Work Phone: Comment on above: Reference Range: 32. 0 - 36.0 MCV (RBC) [Entitic vol] 82 fL 80 - 100 M KayleyMoxie JeanUlices Giang Work Phone: Monocytes/100 WBC (Bld) 11.4 % 2.0 - 10.0 M Moxie JeanUlices Giang Work Phone: Neutrophils/100 WBC (Bld) 63.8 % See Below PK CleanUlices Giang Work Phone: Comment on above: Reference Range: 40. 0 - 80.0 Platelets (Bld) [#/Vol] 322 10*3/uL 150 - 450 Moxie JeanUlices Giang Work Phone: RBC (Bld) [#/Vol] 4.16 {x10E12/L} See Below MG Nathalie Giang Work Phone: Comment on above: Reference Range: 4.0 0 - 5.20 WBC (Bld) [#/Vol] 10.5 10*3/uL 4.4 - 11.3 JUANMs lou Giang Work Phone: Complete Blood Count + Differential 0.11 {x10E9/L} above high threshold See Below Ulices Giang Work Phone: Comment on above: Reference Range: 0.0 0 - 0.10 Complete Blood Count + Differential 0.75 {x10E9/L} above high threshold See Below Jerod Giang Work Phone: Comment on above: Reference Range: 0.0 0 - 0.70 Complete Blood Count + Differential 1.19 {x10E9/L} above high threshold See Below Jerod Giang Work Phone: Comment on above: Reference Range: 0.1 0 - 1.00 Complete Blood Count + Differential 1.67 {x10E9/L} See Below Jerod Giang Work Phone: Comment on above: Reference Range: 1.2 0 - 4.80 Complete Blood Count + Differential 6.68 {x10E9/L} See Below Jerod Giang Work Phone: Comment on above: Reference Range: 1.2 0 - 7.70 Complete Blood Count + Differential 7.2 % 0.0 - 6.0 Jerod Giang Work Phone: Complete Blood Count + Differential 0.5 % 0.0 - 0.9 Jerod Giang Work Phone: Comment on above: Immature Granulocyte Count (IG) includes promyelocytes, myelocytes and metamyelocytes but does not include bands. Percent differential counts (%) should be interpreted in the context of the absolute cell counts (cells/L). Complete Blood Count + Differential 0.0 {/100_WBC} 0.0-0.0 Jerod Giang Work Phone: Consult-ENTon 10-24-2022 Consult-ENT Service: Service: ENT Consult: Consult requested by (Attending Name): Tai Peoples Reason: 57 yo female coming as a transfer from [facility] for R eye evaluation for a cut-down biopsy of diffuse inflitration from the orbit into surroiunding tissue. Pt had an extensive work up at [facility] and [place] and rheumatologic or infectious causes were ruled out. She was seen by occuloplastics on admission and due to inflitration location they recommend ENT eval for biopsy. History of Present Illness: HPI: Reason for Consult: Periorbital process Consulted by: primary team HPI: The patient is a 57 year old female who presents to hospital for evaluation of right periorbital process . The medical history is significant for COPD, alcohol abuse, pancreatitis, marijuana. ENT is consulted for evaluation of such findings on imaging. Pt noted to originally present to [facility] for 1 month of worseninig right eye pain/right headache/episodes of blurry and double vision without other symptoms. Denies eye trauma. Denies similar prior episodes. Denies nasal congestion/drainage. No inciting event. No relief with outpt antibiotics. At [facility] some improvement noted with antibiotics. Rheum c/s determined no rheum cause. Has not tried steroids yet. ENT at [facility] determined no need for biopsy at that time given improvement in presentation. Scope exam there ruled out fungal disease. Sent here for evaluation by oculoplastics. Denies prior H&N surgeries. PMH: per above PSH: per above SHx: denies tob, endorses etoh, marijuana FHx: None relevant to presenting complaint Outpt Rx: Reviewed Inpt Rx: Reviewed All: reviewed ROS: A full review of systems was obtained and all other systems are negative for complaint except as stated in history Physical Exam: CON: No acute distress VOICE: No dysphonia, No dysarthria RESP: Unlabored breathing with no stertor or stridor CV: No cyanosis EYES: EOM intact, injected sclera on right, right superficial periorbital edema/erythema without definitive palpable fluid collection NEURO: Alert and oriented times 3, Cranial nerves II-XII grossly intact and symmetric bilaterally HEAD AND FACE: Symmetric facial features, no masses or lesions, sinuses non-tender to palpation ANG: Parotid and submandibular glands normal bilaterally EARS: Normal external ears, external auditory canals, and TMs to otoscopy, normal hearing to spoken voice. NOSE: External nose midline, anterior rhinoscopy is normal with limited visualization to the anterior aspect of the interior turbinates, no bleeding or drainage, no lesions OC/OP: edentulous, Normal mucous membranes, normal floor of mouth/tongue/OP, no masses or lesions NECK/LYMPH: No LAD, no thyroid masses, trachea midline SKIN: Neck skin is without scar or injury PSYCH: Alert and oriented with appropriate mood and affect Radiology: I personally reviewed the CT orbit from 10/19 and this is my impression: abnormality of the soft tissues of the RIGHT orbit including preseptal soft tissue swelling consistent with a cellulitis. Extensive enhancement of the conjunctival surface consistent with extensive conjunctivitis. There is enhancement of the RIGHT lacrimal gland consistent with dacryoadenitis. 2. Significant soft tissue thickening and edema along the anterior lateral aspect of the extraconal compartment of the RIGHT orbit. Findings consistent with orbital cellulitis, however no organized fluid collections or orbital abscess noted. No evidence of orbital compartment syndrome. Assessment and Plan: The patient is a 57 year old female transferred from [facility] for evaluation by oculoplastics here for biopsy right periorbital process, consulted for ENT evaluation/consideratio n for biopsy of said process. - Given disease process location, process may be more amenable to biopsy approach by oculoplastics - Pt seen and d/w Dr. Alonso who agrees with plan - Thank you for involving us in the care of this patient Fortino Mathews DO, PGY2 Adult Service Pager: [phone] [facility] Service Pager: [phone] [phone]. Review Family/Social History and ROS: Social History: Smoking Status: unable to assess (1) Alcohol Use: denies(1) Drug Use: denies (1) Allergies: penicillin: Hives/Urticaria Consult Status: Consult Order ID: [id number] Attestation: Note Completion: I am a: Resident/Fellow Attending AttestationI saw and evaluated the patient. I personally obtained the ochoa and critical portions of the history and physical exam or was physically present for ochoa and critical portions performed by the resident/fellow. I reviewed the resident/fellows documentation and discussed the patient with the resident/fellow. I agree with the resident/fellows medical decision making as documented in the note. I personally evaluated the patient [id number] Electronic Signatures: Fortino Mathews (DO (R (more content not included)... Normal [facility] Consult-Infectious Diseaseon 10-24-2022 Consult-Infectious Disease Service: Service: Infectious Disease Consult: Consult requested by (Attending Name): Tai Peoples Reason: 57 year old woman who is presenting as a transfer to [facility] from [facility] for further management of preseptal cellulitis vs. infiltrative process of her right eye seen on MRI orbit. ID at [facility] recommended Vanc/zosyn History of Present Illness: HPI: GRACIE BANUELOS is a 57 year old woman pmhx sig for COPD, HTN, transferred from [facility] on 10/23 for inflammatory eye disease/possible preseptal cellulitis. HPI per notes and pt. Pt reports ~1 mos R eye redness, swelling and pain. Was treated by outpt eye doctor w/ azithromycin x 5 days on 10/17. Presented to [facility]. Given 1 dose clindamycin and transferred to [facility]. Admits to having fever and chills prior to [facility] admission, but describes them as sweats which she relates to menopause. + nasal congestion, no eye drainage. No SOB, cough. + macular rash on posterior neck which she states she gets sometimes at home. No N/V, diarrhea, or abd pain. No joint or muscle aches. No other rash. Has minimal light perception on R side, and reported double vision at OSH. No recent procedures, no trauma. No pets at home. No exposure to fumes/chemicals, except states her daughter likes to burn candles. Never had this before. MRI at [facility] w/ infiltration of retroantral fat pad extending into pterygopalatine fossa and orbit, enhancement of R vidian and V2 nerves. Reportedly w/ some concern for fungal disease however pt was improving on abx at this time. Per notes and pt she has felt better since starting vanc and pip-tazo. On admission to OSH had WBC ~14k, ESR 75, CRP 42. Underwent scope w/ ENT and no signs of fungal disease. Ophtho recommended transfer to for cut-down biopsy to determine the etiology of the inflammation. Added on TB and syphilis testing. Ddx per Ophtho for orbital malignancy, IgG4, fungal infection, orbital cellulitis, GPA/RA/SLE/Graves. NSOI (nonspecific orbital inflammation) States today she continues to feel better, although eye is dilated and irritated from being examined today. PMHx: anxiety, tobacco use, depression, chronic pancreatitis from ETOH, GERD PSHx: cholecystectomy SocHx: 1ppd x 35 years, quit since being in hospital; prior heavy ETOH use, states she quit 2 years ago but still has 2 beers sometimes socially. 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 Brother with lung cancer. Sister with hypothyroidism. Daughter with hyperthyroidism. Allergies: PCN, states hives when she was ~8, tolerating pip-tazo Medications: Reviewed ROS: Reviewed and unremarkable except for those mentioned in HPI Review Family/Social History and ROS: Social History: Smoking Status: unable to assess (1) Alcohol Use: denies(1) Drug Use: denies (1) Allergies: penicillin: Hives/Urticaria Objective: Objective Information: T PRBPMAPSpO2 [id number]/8495% Date/Time10/24 13: 13: 13: 13: 13:44 Range(36C - 36.7C ) (90 - 102 ) (18 - 18 ) (109 - 151 )/ (62 - 84 ) (91% - 95% ) Physical Exam Narrative: Physical Exam: GEN: comfortable appearing middle aged woman, laying in bed, NAD HEENT: MMM, no oral lesions; red scaly skin changes around R eye; unable to examine pupil; L pupil dilated NECK: supple, no LAD; posterior neck and back w/ dry, scaling macular rash RESP: CTA anteriorly and posteriorly, no wheezes or rhonchi, no tachypnea or cyanosis CV: RRR, S1/S2, no appreciable murmurs, 2+ R radial pulse ABDOMEN: soft, nontender, BS+, nondistended MSK: no bony deformities, no joint warmth or swelling EXTREMITIES: warm and well-perfused, no peripheral edema GI/: SKIN: as above NEURO: alert, answers questions appropriately, moving b/l UE and LE to command, no gross focal deficits PSYCH: calm and cooperative Medications: Medications: 1. Vancomycin - RPh to Dose - IV Piggy Back: 1 each As Specified Variable ANTI-INFECTIVES: 1. Vancomycin IV Piggy Back: 1250 mg IntraVenous Piggyback Every 12 Hours 2. Piperacillin - Tazobactam 3.375 gram/Iso-osmotic 50 mL Premix IVPB: 50 mL IntraVenous Piggyback Every 6 Hours CARDIOVASCULAR AGENTS: 1. Lisinopril: 10 mg Oral Daily CENTRAL NERVOUS SYSTEM AGENTS: 1. Acetaminophen: 975 mg Oral Every 8 Hours 2. Morphine Injectable: 1 mg IntraVenous Push Every 4 Hours PRN 3. oxyCODONE Immediate Release: 5 mg Oral Every 4 Hours PRN 4. hydrOXYzine Hydrochloride (ATARAX): 25 mg Oral Every 6 Hours PRN COAGULATION MODIFIERS: 1. Enoxaparin SubCutaneous: 40 mg SubCutaneous Every 24 Hours GASTROINTESTINAL AGENTS: 1. Pancrelipase (Creon 24,000): 1 capsule(s) Oral 3 Times a Day With Meals 2. Polyethylene Glycol: 17 gram(s) Oral Daily PRN 3. Pantoprazole: 40 m (more content not included)... Normal [facility] Consult-Ophthalmologyon 09-29 Consult-Ophthalmology Service: Service: Ophthalmology Consult: Consult requested by (Attending Name): Tai Peoples Reason: 57 yo female coming as a transfer from [facility] for R eye evaluation for oculoplastic need for a cut-down biopsy of diffuse inflitration from the orbit into surroiunding tissue. Pt had an extensive work up at [facility] and [place] and rheumatologic or infectious causes were ruled out. History of Present Illness: HPI: GRACIE BANUELOS is a 57 year old Female Review Family/Social History and ROS: Social History: Smoking Status: unable to assess (1) Alcohol Use: denies(1) Drug Use: denies (1) Allergies: penicillin: Hives/Urticaria Assessment: Reason for consult: right eye pain HPI: This 57 year old woman with a history of COPD, HTN, current tobacco use disorder, and alcohol use disorder presents for evaluation of right eye pain. She reports ongoing right eye pain that is 8/10 and is worse with movement. She feels that her vision is a little blurry but not be much. She sometimes sees double vision that goes away when she closes either eye. One month ago she developed right upper and lower eyelid swelling and redness, as well as mild pain. Over several weeks the eyelid swelling and pain progressed. On 10/19/22 she presented to the [place] [facility] and CT orbits showed findings concerning for right orbital cellulitis. WBC was reportedly 13.9, ESR 75, and CRP 42.6. She was prescribed clindamycin to take at home, but her pain only worsened and she presented to [facility] 10/20/22 for further management. MRI orbits showed diffuse infiltration of right retroantral, extraconal fat, pterygopalatine fossa, inferior and lateral rectus muscles, and muscles of mastication. She was started on Vancomycin and Zosyn. ENT performed bedside endoscopy and did not see evidence of invasive fungal sinusitis. Denies flashes of light, floating spots, or sudden vision loss. Past Medical History: as above Family History: reviewed and not pertinent to chief complaint Medications: please refer to medication reconciliation Allergies: please refer to patient allergy list OCULAR EXAMINATION: Near VA OD 20/40, with pinhole occluder I don't see anything; OS 20/25 PHNI Pupils: 3>2 OU, briskly reactive without RAPD OU IOP: OD 17, 16 OS 12 Motility: OD -2 infraduction, -1 abduction; OS full Alignment: right hypertropia, comitant in all directions of gaze Confrontation visual sherman: Full to count fingers OU Color vision: 11/11 OU ANTERIOR SEGMENT: OD: Lids/Lashes: trace RUL and RLL edema, 2-3+ erythema of preseptal and periorbital skin, MRD1 2.0 mm Conjunctiva: trace-to-1+ diffuse injection, 1+ dependent chemosis (no chemosis of superior conjunctiva visualized) Cornea: clear stroma, no staining with fluorescein AC: deep and quiet Iris: round and reactive Lens: NS OS: Lids/Lashes: normal anatomy and position, MRD1 4.0 mm Conjunctiva: white and quiet Cornea: clear AC: deep and quiet Iris: round and reactive Lens: NS DILATED FUNDUS EXAM: (Dilated with 1% tropicamide and 2.5% phenylephrine) OD: Cup-to-disc ratio: 0.45 Optic nerve: pink with sharp margins Vitreous: clear Macula: flat and attached without lesions Vessels: normal course and caliber Periphery: no holes, tears, or detachments OS: Cup-to-disc ratio: 0.45 Optic nerve: pink with sharp margins Vitreous: clear Macula: flat and attached without lesions Vessels: normal course and caliber Periphery: no holes, tears, or detachments Imaging 10/19/22 CT Orbit Sella Inner, by report from [facility] shows: 1. Marked abnormality of the soft tissues of the RIGHT orbit including preseptal soft tissue swelling consistent with a cellulitis. Extensive enhancement of the conjunctival surface consistent with extensive conjunctivitis. There is enhancement of the RIGHT lacrimal gland consistent with dacryoadenitis. 2. Significant soft tissue thickening and edema along the anterior lateral aspect of the extraconal compartment of the RIGHT orbit. Findings consistent with orbital cellulitis, however no organized fluid collections or orbital abscess noted. No evidence of orbital compartment syndrome. 3. Normal appearance of the globes, ocular lenses and optic nerves bilaterally. 4. Normal appearance of the soft tissues of the LEFT orbit. 5. Chronic RIGHT maxillary sinus mucosal thickening. 10/21/22 MRI Head, which I personally reviewed, by report from [facility] shows Abnormal infiltration throughout the right retroantral and extraconal fat as well as the pterygopalatine fossa and diffusely throughout the right assistant associate full professor space with asymmetry of the muscles of mastication. Additional mild enlargement of the right inferior and lateral rectus. These findings are highly concerning for invasive fungal sinusitis until proven otherwise. Mild as (more content not included)... Normal [facility] Discharge Planning Friu0my 0 10-24-2022 Discharge Planning Note2 Discharge Planning: Needs Prior to Discharge (ex. Home Care Orders, IV/O2 prescriptions) f/u appts Discharge Barriersnone Planned Dispositionhome Discharge DestinationHome with family vs HC if IV abx needed AMPAC < 20no Anticipated Discharge [id number] Discharge Planning 10/23/22-Admission [id number] arrived to unit from [facility] via stretcher per community care in stable condition. No home care at this time. Will evaluate home care needs prior to discharge. Humberto Arriaga RN 10/27/22 1036 Transitional Care Coordination Progress Note: Patient discussed during interdisciplinary rounds. Team members present: MD ERICA Plan per medical/surgical team: Pt adm with preseptal cellulitis-on IV abx. Repeat CT brain for orbital mass. Await ID reccs; opthalmology on board. Payer: [facility] Status: inpatient Discharge disposition: HC RN if IV abx needed. Potential Barriers: none ADOD: 10/29 Vicki Varela RNtransfer knitter Coordinator Assessment: Discharge Planning Assessment [id number] Discharge Planning Assessment Completed byVicki Varela RNtransfer knitter Coordinator Primary Contact Name and NumberTina Augustine (sister)-[phone] Prior Level of Functioningind with ADLS Lives Withadult child(rama); dependent child(rama); daughter and granddaughter Living Arrangementshouse PCPJoy Older [facility] [place] Recent Falls/ Injury/ Need Assist with Ambulationdenies Equipment Currently Used at [facility] DME Supplier Name/Numbern/a Home Care Agency/Support Servicesn/a Diabetic/Supplies Neededn/a Hemodialysis Schedulen/a [facility] Anticipated at Transitionnone PCP Last Date Seencouple months ago InsuranceCaresource Equipment Needed After Dischargenone Anticipated Discharge Facility/Level of Care Needs.Home Discharge Planning CommentsPt has transportation to medical appointments, feels safe at home. Address, phone and emergency contact information verified. All questions and concerns answered. Will continue to follow for discharge needs. Vicki Varela RNtransfer knitter Coordinator Social Determinants of Health Identifiedpast hx of ETOH use Transportation Home Who/Howsister Medication Adherence/Afford/Obtain yes Home O2/BiPAP/CPAPHome O2 O2 LPM2L NC PRN Home O2 SupplierDasko Discharge Documentation: Code StatusCode Status order at time of discharge: Full Code Electronic Signatures: Vicki Varela (CLIN COOR) (Signed 27-Oct-2022 13:57) Authored: Discharge Planning, Assessment, Discharge Documentation Humberto ArriagaRN) (Signed 24-Oct-2022 00:15) Authored: Discharge Planning, Assessment Last Updated: 27-Oct-2022 13:57 by Vicki Varela (CLIN COOR) Normal [facility] Discharge [id number] Discharge Profile2 Discharge Orders: Anticipated Discharge Date: Anticipated Discharge [id number] DNAR: Code Status at Discharge: Full Code Activity: activity as tolerated. Diet: Dietregular Labs 1: Lab Test(s)RFP Date To Be Drawn10/30/22 Call Results ToSoila Easton CNP or Fax Results [phone] CommentsPCP consider monitoring improvement of CHUY upon recent hospital admission Oxygen: Administer oxygen at 2 liters/min via nasal cannula to maintain SpO2 % of 88-92 with activity. Additional Orders: Additional Instructions Dear Vin, You presented to us as transfer from [facility] for a possible biopsy of the right eye infiltrate by our Oculoplastic service. You were evaluated by the eye doctors here and due to the great improvement in your eye's swelling and redness on antibiotics alone the decision was made to avoid biopsy in such a risky area (behind your right eye). Our Infectious Disease specialist saw you as well and decided to keep you on oral antibiotics after discharge. You were put on Augmentin 875mg twice a day until 11/04/22. While you were here you developed diarrhea possibly from the antibiotics. Work up for C. diff was negative. Diarrhea should resolve after ending the antibiotics course. Please stay hydrated by drinking water to replenish fluids loss. You also developed an acute kidney injury, possibly from the diarrhea and fluid loss. It should resolve once you are sufficiently hydrated and the diarrhea is under control. We held your blood pressure medication lisinopril as it might worsen kidney injury. Please discuss restarting it with your PCP as your kidney injury recovers. Call Provider If (Homegoing Patients): Any new concerning symptoms. Hospital Course (Home Care/Gold Form): Hospital Course: Hospital Course: include significant abnormal lab values 57 year old woman presenting as a transfer form outside hospital for further evaluation of right orbit pain/swelling/concern for infiltrative mass vs. infection. Current workup favors infection vs. infiltrative mass. Vanc/zosyn were started at [facility]. Oculoplastic were consulted and there was a discussion with ENT to try to biopsy the lesion from a out of the Orbit location. ENT reviewed the patient's case and didn't recommend a biopsy from that location. However, given the improvement the patient had on antibiotics alone, Oculoplastics decided not to biopsy or repeat of imaging. Pt had an allergic reaction to Zosyn where she developed a macular rash over her back, trunk and extremities with a one time fever of 39 C. Zosyn was stopped, CBC w/ diff, and urine studies were normal. Pt was discharged on Bactrim. The patient is to follow up with them outpatient within a week of discharge. ID saw the patient and recommended Augmentin 875 BID until 11/04/22. Will need outpatient RFP for follow up of CHUY. Provider FINAL REVIEW of Orders: Final Review: Final Review of Medication Reconciliation and Orders Completedby Physician Reviewing ProviderDonn Trammell MD (Resident) at 29-Oct-2022 12:36:26 Appointments: Follow-Up Appointment 01: Physician/Dept/ServiceP rimary:Lalito Hoskins MD Reason for ReferralEstablish with Primary Care Provider Scheduled Date/[id number] 16:[address] [place] [address], [address] [address] fax Phone [phone] CommentsPlease bring your insurance card, photo id, a list of medication in the original bottle, any co-pays you may have, and the discharge summary Follow-Up Appointment 02: Physician/Dept/YaelO phthalmology: Dr Ortega Scheduled Date/[id number] 15:30 [facility] [address] , [address] [facility] [address] CommentsPlease bring your insurance card, photo id, a list of medication in the original bottle, any co-pays you may have, and the discharge summary Follow-Up Appointment 03: Physician/Dept/Baudilio Easton CNP Call to Schedule inPatient is to call upon discharge and schedule follow up for Thursday10/31/[address] [place], [place] [id number] or Electronic Signatures: Annie Escobedo (PT ACC REP) (Signed 28-Oct-2022 09:45) Authored: Discharge Orders, Appointments Justyn Richter (Resident)) (Signed 29-Oct-2022 11:30) Authored: Discharge Orders, Hospital Course (Home Care/Gold Form), Provider FINAL REVIEW of Orders Katina Booker (COSMETIC CONSULTANT-DAYTIME CAREGIVER) (Signed 28-Oct-2022 09:22) Authored: Discharge Orders, Provider FINAL REVIEW of Orders, Gold Form - Ob/Gyn Doctor Summary Donn Trammell ( (Resident)) (Signed 29-Oct-2022 12:36) Authored: Discharge Orders, Hospital Course (Home Care/Gold Form), Provider FINAL REVIEW of Orders, Appointments Last Updated: 29-Oct-2022 12:36 by Donn Trammell ( (Resident)) Normal [facility] Electrocardiogram 12 Leadon 10-24-2022 Electrocardiogram 12 Lead Ventricular Rate 82 Atrial Rate 82 P-R Interval 168 QRS Duration 74 Q-T Interval 394 QTC Calculation(Bazett) 460 P Dayton 50 R Dayton 76 T Dayton 79 QRS Count 14 Q Onset 233 P Onset 149 P Offset 196 T Offset 430 QTC Fredericia 437 Diagnosis Class Abnormal Diagnosis Normal sinus rhythm Anterior infarct , age undetermined Abnormal ECG No previous ECGs available Confirmed by Dinesh Najera ([id number]) on 10/24/2022 11:13:15 AM Normal [facility] Laboratory - Chemistry and C hemistry - challengeon 10-24-2022 Albumin BCP dye [Mass/Vol] 3.6 g/dL 3.4 - 5.0 [facility] Work Phone: ALP [Catalytic activity/Vol] 107 U/L 33 - 110 [facility] Work Phone: ALT With P-5'-P [Catalytic activity/Vol] 23 U/L 7 - 45 [facility] Work Phone: Comment on above: Patients treated wit h Sulfasalazine may generate falsely decreased results for ALT. Anion gap [Moles/Vol] 15 mmol/L 10 - 20 [facility]- [employer] [employer] Work Phone: AST With P-5'-P [Catalytic activity/Vol] 26 U/L 9 - 39 [facility] Work Phone: Bilirubin [Mass/Vol] 0.3 mg/dL 0.0 - 1.2 [facility] Work Phone: Calcium [Mass/Vol] 9.2 mg/dL 8.6 - 10.6 [facility] Work Phone: Chloride [Moles/Vol] 103 mmol/L 98 - 107 MG-M edgiovany- Wilfrid Giang Work Phone: [phone] CO2 [Moles/Vol] 25 mmol/L 21 - 32 [facility]Medici ne- Wilfrid Giang Work Phone: [phone] Creatinine [Mass/Vol] 0.92 mg/dL See Below MG- [facility] Work Phone: [phone] Comment on above: Reference Range: 0.5 0 - 1.05 Glucose [Mass/Vol] 95 mg/dL 74 - 99 [facility]Med rigoberto Giang Work Phone: [phone] Potassium [Moles/Vol] 4.1 mmol/L 3.5 - 5.3 MG- [facility] Work Phone: [phone] Protein [Mass/Vol] 6.4 g/dL 6.4 - 8.2 [facility] rigoberto [facility]ang Work Phone: [phone] Sodium [Moles/Vol] 139 mmol/L 136 - 145 [facility] rigoberto [facility]ang Work Phone: [phone] Urea nitrogen [Mass/Vol] 9 mg/dL 6 - 23 MG-Ulices [facility] Work Phone: [phone] MAGNESIUMon 10-24-2022 Magnesium [Mass/Vol] 1.75 mg/dL Normal 1.60 - 2.40 [facility] Comment on above: Performed By: #### V ANCU #### [facility] [address] [place] [address] Magnesium, Serumon Magnesium [Mass/Vol] 1.75 mg/dL See Below MG-M mack Giang Work Phone: [phone] Comment on above: Reference Range: 1.6 0 - 2.40 No Panel Informationon 10-24 72 {mL/min/1.73m2} >90 [facility] rigoberto Giang Work Phone: [phone] Comment on above: CALCULATIONS OF PAVAN MATED GFR ARE PERFORMED USING THE 2020 CKD-EPI STUDY REFIT EQUATION WITHOUT THE RACE VARIABLE FOR THE IDMS-TRACEABLE CREATININE METHODS.https://jasn.asnjournals.org/content// ASN.6879775083 https://MUSEXPRDWE B01 :8080/yusef/musew eb.dll?RetrieveTestByDa Domi?VgjnnnuVZ=[email or web address] 393&Date=24-10-2022&Jose Luis e=[email or web address]&Shabana tType=ECG&Site=1&Output Type=PDF&Ext=PDF [facility]- Wilfrid Giang Work Phone: Normal sinus rhythm MG-Me dicine- Wilfrid Giang Work Phone: Abnormal [facility]- Wilfrid Giang Work Phone: [phone] [facility]- Wilfrid Giang Work Phone: [phone] [facility]- Wilfrid Giang Work Phone: [phone] [facility]- Wilfrid Giang Work Phone: [phone] [facility]- Wilfrid Giang Work Phone: [phone] [facility]- Wilfrid Giang Work Phone: [phone] [facility]- Wilfrid Giang Work Phone: [phone] [facility]- Wilfrid Giang Work Phone: [phone] [facility]- Wilfrid Giang Work Phone: [phone] [facility]- Wilfrid Giang Work Phone: [phone] [facility]- Wilfrid Giang Work Phone: [phone] [facility]- Wilfrid Giang Work Phone: [phone] [facility]- Wilfrid Giang Work Phone: [phone] [facility]- Wilfrid Giang Work Phone: [phone] [facility]- Wilfrid Giang Work Phone: Order Reconciliationon 10-24 Order Reconciliation Page 1 Discharge Reconciliation Document Reconciliation Type: Discharge requested on behalf of Katina Booker (Advanced Practice Nurse-Admit) done by Katina Booker ([facility]) Discharge - Partial Reconciliation: 24-Oct-2022 08:06 by: Katina Booker ([facility]) Discharge - Partial Reconciliation: 27-Oct-2022 06:53 by: Katina Booker ([facility]) Discharge - Partial Reconciliation: 27-Oct-2022 07:55 by: Katina Booker ([facility]) Discharge - Partial Reconciliation: 27-Oct-2022 13:27 by: Katina Booker ([facility]) Discharge - Partial Reconciliation: 28-Oct-2022 07:04 by: Katina Booker ([facility]) Discharge - Reconciliation: 28-Oct-2022 07:09 by: Katina Booker ([facility]) Discharge - Reset to Incomplete: 28-Oct-2022 07:11 by: Katina Booker ([facility]) Discharge - Reconciliation: 28-Oct-2022 07:11 by: Katina Bookre ([facility]) Discharge - Reset to Incomplete: 28-Oct-2022 09:07 by: Katina Booker ([facility]) Discharge - Partial Reconciliation: 28-Oct-2022 09:08 by: Katina Booker ([facility]) Discharge - Reconciliation: 28-Oct-2022 09:08 by: Katina Booker ([facility]) Discharge - Reset to Incomplete: 28-Oct-2022 09:09 by: Katina Booker ([facility]) Discharge - Reconciliation: 28-Oct-2022 09:16 by: Katina Booker ([facility]) Discharge - Reset to Incomplete: 28-Oct-2022 10:10 by: Donn Trammell ( (Resident)) Discharge - Reconciliation: 28-Oct-2022 10:16 by: Donn Trammell ( (Resident)) Discharge - Reset to Incomplete: 28-Oct-2022 11:05 by: Noemí Asif (Resident)) Discharge - Partial Reconciliation: 28-Oct-2022 11:06 by: Noemí Asif (Resident)) Discharge - Reconciliation: 28-Oct-2022 11:08 by: Katina Booker ([facility]) Discharge - Reset to Incomplete: 29-Oct-2022 07:20 by: Katina Booker ([facility]) Discharge - Partial Reconciliation: 29-Oct-2022 07:21 by: Katina Booker ([facility]) Discharge - Reconciliation: 29-Oct-2022 08:21 by: Katina Booker ([facility]) Discharge - Reset to Incomplete: 29-Oct-2022 11:27 by: Katina Booker ([facility]) Discharge - Reconciliation: 29-Oct-2022 11:31 by: Katina Booker ([facility]) Discharge - Reset to Incomplete: 29-Oct-2022 13:31 by: Katina Booker ([facility]) Discharge - Reconciliation: 29-Oct-2022 13:34 by: Katina Booker ([facility]) Home Medications EnteredHOME MEDICATIONS AT DISCHARGE DateReconciliation Comment/ Additional Information albuterol 90 mcg/inh inhalation aerosol 2 puff(s) inhaled every 6 hours, As Needed 27-Oct-2022 16:27 albuterol 90 mcg/inh inhalation aerosol 2 puff(s) inhaled every 6 hours, As Needed 27-Oct-2022 16:27 albuterol 90 mcg/inh inhalation aerosol is continued as albuterol 90 mcg/inh inhalation aerosol ARIPiprazole 5 mg oral tablet 1 tab(s) orally once a day 24-Oct-2022 17:00 ARIPiprazole 5 mg oral tablet 1 tab(s) orally once a day 24-Oct-2022 17:00 ARIPiprazole 5 mg oral tablet is continued as ARIPiprazole 5 mg oral tablet busPIRone 10 mg oral tablet 1 tab(s) orally 3 times a day, As Needed 27-Oct-2022 16:26 Discontinued; Discontinue from ORM busPIRone 10 mg oral tablet is not required cholecalciferol 50 mcg (2000 intl units) oral capsule 1 cap(s) orally once a day 24-Oct-2022 17:07 cholecalciferol 50 mcg (2000 intl units) oral capsule 1 cap(s) orally once a day 24-Oct-2022 17:07 cholecalciferol 50 mcg (2000 intl units) oral capsule is continued as cholecalciferol 50 mcg (2000 intl units) oral capsule Creon 24,000 units oral delayed release capsule 3 cap(s) orally once a day 24-Oct-2022 08:01 Creon 24,000 units oral delayed release capsule 3 cap(s) orally once a day 24-Oct-2022 08:01 Creon 24,000 units oral delayed release capsule is continued as Creon 24,000 units oral delayed release capsule hydrOXYzine pamoate 25 mg oral capsule 1 cap(s) orally once a day (at bedtime) 24-Oct-2022 08:03 Discontinued; Discontinue from ORM hydrOXYzine pamoate 25 mg oral capsule is not required lisinopril 10 mg oral tablet 1 tab(s) orally once a day 27-Oct-2022 16:27 Discontinued; Discontinue from ORM lisinopril 10 mg oral tablet is not required meloxicam 15 mg oral tablet 1 tab(s) orally once a day 24-Oct-2022 17:02 Discontinued; Discontinue from ORM meloxicam 15 mg oral tablet is not required meloxicam 15 mg oral tablet 1 tab(s) orally once a day 27-Oct-2022 16:27 Discontinued; Discontinue from ORM meloxicam 15 mg oral tablet is not required pantoprazole 40 mg oral delayed release tablet 1 tab(s) orally once a day 24-Oct-2022 17:02 pantoprazole 40 mg oral delayed release tablet 1 tab(s) orally once a day 24-Oct-2022 17:02 pantoprazole 40 mg oral delayed release tablet is continued as pantoprazole 40 mg oral delayed release tablet Current OrdersDateHOME MEDICATIONS AT DISCHARGE DateReconciliation Comment/ Additional Information Acetaminophen Tablet (TYLENOL)DOSE = 975 mg Oral Every 8 Hours 24-Oct-2022 00:59 Acetaminophen is not required Albuterol 90 micrograms/ Inhalation MDI (PROVENTIL, VENTOLIN)DOSE = 2 inha (more content not included)... Normal [facility] Order Reconciliation Page 1 Admission Reconciliation Document Reconciliation Type: Admission requested on behalf of Demarco Moya (Resident) done by Demarco Moya ( (Resident)) Admission - Reconciliation: 24-Oct-2022 00:54 by: Demarco Moya ( (Resident)) Additional Current Orders Enoxaparin SubCutaneous (LOVENOX)DOSE = 40 mg SubCutaneous Every 24 Hours Erythromycin 0.5% Ophthalmic OintmentDOSE = 0.5 inch(es) Left Eye Every 6 HoursClinician Notes: Apply small amount into conjunctival sac Piperacillin - Tazobactam 3.375 gram/Iso-osmotic 50 mL Premix IVPB (ZOSYN)Every 6 HoursRecommended Infusion Time: 30 minute(s) Sodium Chloride 0.9% Injectable Flush via Peripheral LineVolume = 10 mL IntraVenous Flush Every 8 Hours and as Needed Vancomycin - RPh to Dose - IV Piggy Back Indication: Skin and Soft TissueGoal Trough: 15-20Clinician Notes: Was receiving vancomycin 1,250mg q12h at [facility], last dose given 1700 on 10/23. Vancomycin trough 17.4 obtained 10/23 16:19 Normal [facility] Patient Profile - Adult v2on 10-24-2022 Patient Profile - Adult v2 Profile: Initial Info: How to be AddressedConnie Spoken Language PreferredEnglish Stated Reason for Admissioneye cellulitis Wants Family/Rep Notified of Admissionno Notify PCPnotify PCP Informed of Patient Visiting Rightsyes Limitations on Visitors/Phone Callsnone Arrived Fromhospital Patient Belongingsremains with patient Patient Belongings Remaining with Patientclothing; cell phone/electronics Medications Brought to Hospitalno General Health: Weight in kg60.1 kilogram(s)(1) Weight in lyq271.4 pound(s) Weight Methodactual (measured) Scale Typebed Height in cm159.8 centimeter(s) Height in feet5 feet Height in inches2.95 inch(es) Height Methodstated BMI (kg/m2)23.535 square meter RSP Based Care: How would you like to participate in your careI would like to know what's going on What is the number one concern for you during this hospitalizationGetting better and going home What is the most important thing we can do to support you during this hospitalizationKeep me informed Is there anything we need to know to best care for youNot right now Substance: Smoking Statusunable to assess Alcohol Usedenies Drug Usedenies Health Mgmt: Symptoms/Conditions Managed at Homerespiratory Are You no (2) Respiratory Symptoms/ConditionsCOPD Respiratory Managementmanaged Relationship/Environ: Resource/Environmental Concernsnone Primary Source of Support/Comfortchild(re n) Lives Withadult child(rama) Living Arrangementshouse Services Anticipated at Transitionnone Anticipated Transition Tohome Significant IndicatorsComplete Information Review: Allergies, Home Meds and Significant Events have been Reviewed and Verified with Patient/Familyyes ALLERGY, INTOLERANCE, ADVERSE EVENT: Allergies: penicillin: Drug, Sep 1974, Hives/Urticaria, Active Electronic Signatures: Humberto Arriaga (SARWAT) (Signed 24-Oct-2022 06:32) Authored: Initial Info, General Health, RSP Based Care, Substance, Health Mgmt, Relationship/Environ, Additional Information Last Updated: 24-Oct-2022 06:32 by Humberto Arriaga (SARWAT) References: 1. Data Referenced From 1. Vital Signs 24-Oct-2022 00:05 2. Data Referenced From History and Physical 24-Oct-2022 02:31 Normal [facility] SEDIMENTATION RATE, ERYTHROC YTEon 10-24-2022 SEDIMENTATION RATE, ERYTHROCYTE 80 mm/h High 0 - 30 [facility] Comment on above: Performed By: #### V ANCU #### [facility] [address] [place] [address] Sedimentation Rate, Erythroc yteon 10-24-2022 ESR (Bld) [Velocity] 80 mm/h above high threshold 0 - 30 [facility]frid [employer] Work Phone: T-SPOT. TBon 10-24-2022 T-SPOT. TB Passed [facility]- NCR [employer] Work Phone: T-SPOT. TB 0 1 [facility]- Wilfrid [employer] Work Phone: T-SPOT. TB Negative See Below [facility]- Wilfrid [employer] Work Phone: Comment on above: Reference Range: Nor mal Value: NegativeA negative test result does not exclude the possibility of exposure to or infection with Mycobacterium tuberculosis (M. tuberculosis). Patients with recent exposure to TB infected individuals exhibiting a negative T-SPOT.TB result should be considered for retesting within 6 weeks or if other relevant clinical symptoms indicate. Results from T-SPOT.TB testing must be used in conjunction with each individual's epidemiological history, current medical status, and results of other diagnostic evaluations. The T-SPOT.TB test is qualitative and results are reported as positive, borderline or negative, given that the test controls perform as expected. In line with the Centers for Disease Control and Prevention's 2010 recommendation to report quantitative measurements alongside the qualitative result, the laboratory provides spot counts for informational purposes only. The T-SPOT.TB test should not be interpreted as a quantitative test. ANCA PANEL FOR VASCULITISon 10-23-2022 MYELOPEROXIDASE < 0.2 Normal <1.0 [facility] Comment on above: Performed By: #### A NCA ROCHA VAS #### [facility] [address] [place] [address], MYELOPEROXIDASE INTERPRETATION Negative Normal Negative [facility] Comment on above: Performed By: #### A NCA ROCHA VAS #### S [facility] [address] [place] [address], PROTEINASE-3 < 0.2 Normal <1.0 [facility] Comment on above: Performed By: #### A NCA ROCHA VAS #### [facility] [address] [place] [address], PROTEINASE-3 INTERPRETATION Negative Normal Negative [facility] Comment on above: Performed By: #### A NCA ROCHA VAS #### [facility] [address] [place] [address], C-REACTIVE PROTEINon 023 CRP 4.6 mg/dL High <0.8 [facility] Comment on above: Performed By: #### T SH HS, T3, CRP #### [facility] [address] [place] [address], CLOSTRIDIUM DIFFICILEon 09-29 CLOSTRIDIUM DIFFICILE Negative Normal Negative [facility] Comment on above: Order Comment: Resul ts obtained by using a real-time PCR based qualitative in vitro diagnostic test for the direct detection of the C. difficile toxin A gene (tcdA) and toxin B gene (tcdB) targets in stool specimens.Results should be interpreted in conjunction with information from the patient clinical evaluation and other diagnostic testing Performed By: #### C DD ####[facility] [id number] [facility] [place], [place] Care Plan Noteon 10-23-2022 Employment Interviewer Authentication Interface Message Text [facility] wait time is extensive per transfer. I spoke with pt and Domonique - they are agreeable to pursue . Please initiate transfer to Orbital surgery for biopsy Pt is accepted to [facility] by Dr. Jannette Eid, pending bed availability. However, as there is extensive wait time for the bed will initiate transfer. Normal [facility] [employer] [facility] Employment Interviewer Authentication Interface Message Text Problem: Routine Care: Goal: Patient care will be managed and maintained throughout hospital stay per unit specific routine care procedure Outcome: Progressing Problem: Safety: Goal: Patient will remain free of falls during hospital stay Outcome: Progressing Problem: Acute Pain: Goal: Ability to identify pain intensity on a pain scale and rate it consistently will be achieved and maintained Outcome: Progressing Problem: VTE Prophylaxis: Goal: Will be free of DVT Outcome: Progressing Problem: Discharge Planning: Goal: Discharge needs of the adult patient will be met Outcome: Progressing Problem: Infection: Goal: Will be free of signs and symptoms of infection Outcome: Progressing Problem: Coping: Goal: Ability to identify and develop effective coping behavior will improve and/or be maintained Outcome: Progressing Normal [facility] ERYTHROCYTE SEDIMENTATION RA Km 10-23-2022 ESR (Bld) [Velocity] 53 mm/h High <=30 [facility] Comment on above: Performed By: #### C OVID19 #### S [facility] [address] [place] [address], IMMUNOGLOBULIN Sudeep IgG [Mass/Vol] 842 mg/dL Normal [id number] [facility] Comment on above: Performed By: #### C OVID19 #### [facility] [address] [place] [address], NOVEL CORONAVIRUS (COVID-19) on 10-23-2022 SARS-CoV-2 (COVID-19) RNA KANDY+probe Ql (Unsp spec) Not detected Normal Not Detected [facility] Comment on above: Order Comment: Not D etected results are indicative of the absence of SARS-CoV-2 in the specimen submitted for testing. False negative results are possible based on the timing and quality of specimen submitted for testing. This test is intended for use only under Emergency Use Authorization (EUA). This test was developed, and its performance characteristics determined by [facility] which is certified under CLIA as qualified to perform high complexity clinical laboratory testing. Result Comment: This assay was performed using Advanced Image EnhancementT RTPCR technology. Performed By: #### C OVID19 #### [facility] [address] [place], [address] Progress Noteson 10-23-2022 Employment Interviewer Authentication Interface Message Text 2330 Transferred to via ambulette Normal [facility] [employer] [facility] Employment Interviewer Authentication Interface Message Text 1 Received a call from that patient has a bed held for her. She will be going to [facility], [place] [address], Bed 0271. Requesting copy of chart to accompany pt. Call nursing report to [phone]. JACKELINE Thurman notified. 2148 Ambulance request placed. Patient notified. Chart being prepped by 6W . 2330 Report called SARWAT Pastrana. Pt transported via ambulette with all belongings. Pt updated her family of her transfer. Normal [facility] [employer] Employment Interviewer Authentication Interface Message Text Pharmacokinetic Dosing Service - VANCOMYCIN Name: Gracie Banuelos Age:[age] year old Gender: female Ht: 5' 3 Wt: no weight Indication: orbital cellulitis/PRESTIDIGITATOR (?) Desired Ranges: 15-20 Day of therapy: 4 Assessment and Recommendations: 10/23/22 PLAPPONI- Day4: orbital cellulitis/PRESTIDIGITATOR (?) ; Renal function: stable; Current level:17.4. No change recommended. Next level Due:in a few days. Level not ordered The vancomycin level resulted as 17.4mcg/mL on 10/23 @ 1600 before the 8th dose (12 hours after the previous dose). The current dose is appropriate; No change is recommended. The next vancomycin level is due in a few days . Pharmacy will post notes for trough levels upon return and for dose changes. The medication regimen has been updated per consult agreement procedures. Current Dose Active Vancomycin Orders (From admission, onward) Start Stop 10/20/221654 vancomycin (VANCOCIN) 1,250 mg/250 mL iv soln (ROOM TEMP PREMIX) 20 mg/kg, Intravenous, EVERY 12 HOURS Question: Suspected Source/Reason for Therapy Answer: Central Nervous System (PRESTIDIGITATOR) -- 10/20/221652 vancomycin dosing pharmacy consult Other, As Directed Question: Suspected Source/Reason for Therapy Answer: Central Nervous System (PRESTIDIGITATOR) -- Lab Values: Creatinine Date Value Ref Range Status 10/20/2022 0.56 0.50 - 1.10 mg/dL Final Lab Results Component Value Date/Time VANCTR 17.4 10/23/2022 04:19 PM VANCTR 16.6 10/21/2022 03:44 PM No results found for: VANCR Serum creatinine: 0.56 mg/dL 10/20/22 0910 Estimated creatinine clearance: 89.48 mL/min Culture(s): FRIEDA ANDERSON, [facility] - Department of Pharmacy Services Normal [facility] [employer] [facility] Employment Interviewer Authentication Interface Message Text CM aware of transfer process that has begun to [facility]. CM will remain available to assist with discharge planning and needs as warranted. Katina GALLOWAY, horticulture/floriculture teacher (8:30-4:00) Normal [facility] [employer] [facility] Employment Interviewer Authentication Interface Message Text Daily follow up visit [facility] 20/30PH 20/25 20/40 PH 20/30 No APD Color plates 15/16 OU External OD notable for Entropion - spastic Boggy conjunctiva +1 edema OD OD EOM -1 supraduction and -2 infraduction Full OS Hertels at 116 today 10/23/22 1. Periorbital/orbital inflammation, OD Course - new onset periocular swelling, redness for over a month, fluctuating nature - had been getting better on PO antibiotics, received azithromycin, but then worsened - no history of trauma or sinusitis - says eyelids infermittently swollen shut - localized throbbing headache, pain with EOM, kacie supraduction - presented to outside ED that did not have beds, sent to main campus for possible admission for orbital cellulitis - received one dose of clindamycin, apparently improving - PMH of COPD with recent exacerbation, ETOH hx of pancreatitis - Since 10/20/22, tracking with daily examination Labs - Pending ANCA - Negative - TSH, T3 ANCA - ESR 53, CRP 4.6 - CT Chest 10/20/22 - No acute process, no LAD, 2mm right upper nodule. - Outside ED labs: WBC 13.9, ESR 75, CRP 42 Imaging - CT from OSH at 1900 on 10/19/22 not showing abscess - MRI Orbit 10/21 showing No change from CT, reported diffuse infiltration of right pterygoid, temporalis, retroantral fat pad extending into the pterygopalatine fossa and through inferior orbital fissure into the inferior and lateral extraconal space. Thickening of the inferior and lateral rectus muscles. Thickening and infiltration of the lacrimal gland.There is minimal enhancement of the right vidian nerve (Series 15, Image 4-5) and the anterior aspect of T2 in the infraorbital canal (Series 14, Image 8) extending to the rotundum. On review of imaging, also see intraconal and extraconal fat stranding and thickening of the superior rectus muscle. Scope at bedside 10/21 was unremarkable Medications Vanc and zosyn day 2 Assessment - Right orbital inflammation extending from orbit into the pterygopalatine fossa; unclear etiology - Today's exam is unchanged: Patient has VA 20/25 ph, no APD, full color plates OU, -1 supraduction and -2 infraduction, mild injection and chemosis and caruncular edema on slit lamp exam.Hertels stable 18/15 at 116 today - Ddx: orbital malignancy, NSOI, IgG4, fungal infection, orbital cellulitis, systemic inflammation (GPA, RA, SLE, Graves) Recommendations: - continue broad spectrum antibiotic coverage - Recommend ID consultation and blood cultures - Improvement in the ESR, CRP would be consistent with infectious process, however, the lack of corresponding clinical improvement remains concernig for inflammation, atypical infection, or malignancy - Appreciate recommendations from ENT - Add on/please order Syphilis Tb - Recommend transfer to or [facility] for oculoplastics care. The patient will likely require a cut-down biopsy to determine etiology of inflammation, which ophtho is not equipped to do. 2. 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 Pt Voices understanding of plan and AVS. Jaime Muste, MD Ophthalmology Resident Plan discussed with Dr. Marti Voss [facility] [employer] [facility] Employment Interviewer Authentication Interface Message Text ID FOLLOW UP INTERVAL HISTORY: NAEON. Patient remains having R eye pain but noted improvement of swelling and erythema. She denies fever, chills,palpitations, n/v and abdominal pain PHYSICAL EXAMINATION: Patient Vitals for the past 24 hrs: Vitals: 10/23/22 0808 BP: Pulse: 93 Resp: 18 Temp: SpO2: 92% General: alert, in no distress, well appearing Eyes: R eye injected with periorbital erythema and swelling, both slowly improving Lung: normal respiratory effort, CTA CV: RRR, no murmurs Abdomen: soft, NT, ND normoactive BS Integumentary: no skin rashes Neurologic: alert, moving all extremities Lines: IV peripheral w/o erythema DATA: Labs reviewed. CBC WBC RBC Hgb Hct MCV RDW Plt 10/22/22 0958 16.0 4.16 11.4 35.3 85 14.1 332 10/20/22 0910 14.8 4.41 12.4 37.4 85 14.0 359 Basic Metabolic Panel Na K Cl CO2 Gap Glu BUN Cr Ca Mg PO4 10/20/22 0910 137 4.3 102 28 11 96 10 0.56 9.4 Creatinine clearance from Cockroft-Gault: 89 ml/min based on creatinine of 0.56 on 10/20/2022 using IBW 52.4 kg (actual weight 60.3 kg ignored) Estimated GFR: 105 on 10/20/2022 IMAGING STUDIES: No new imaging in the last 24 hours Micro: None Antimicrobials: Clindamycin 10/20 Zosyn 10/21-p Vancomycin 10/20-p ASSESSMENT/PLAN: Mrs Banuelos is a 57 year old female with a PMH of COPD, anxiety, HTN and tobacco use who is admitted due to R eye swelling erythema and pain with movement. Concerning for orbital cellulitis of R eye. Broaden to vancomycin and zosyn. ID consulted for abx recs Diagnosis R eye orbital cellulitis Patient has improved erythema and edema of R eye, but diplopia persists. ENT and Ophthalmology concern for other non-infectious causes such as autoimmune vs malignancy. Agree that differential diagnosis could include other non-infectious cause, but she has also a R eye periorbital cellulitis which could be a superimposed infection vs the etiology of patient's current symptoms. Recommendations: -Continue vancomycin for a goal trough of 15-20. -Continue Zosyn 4.5 gr q6hr IV -Ophthalmology on board. Awaiting transfer to [facility] or for oculoplasty and biopsy to determine etiology due to concern for infiltrative process. -Consider repeat MRI orbit to reassess if transfer is delay. -Continue to monitor BM as she has diarrhea. Noted Cdiff negative. -Ok to remove contact precautions. ID will continue to follow Findings and recommendations discussed with Dr. Oliveira. Car Dorado MD ID fellow, PGY-4 Pager: [phone] Normal [facility] RHEUMATOID FACTORon 10-23-19 23 RHEUMATOID FACTOR < 10 Normal <10 [facility] Comment on above: Performed By: #### C OVID19 #### [facility] [address] [place] [address], SYPHILIS WITH CONFIRMATIONon 10-23-2022 SYPHILIS TOTAL (IGG/IGM) Non-Reactive Normal Non-Reactive [facility] Comment on above: Order Comment: Not D etected results are indicative of the absence of SARS-CoV-2 in the specimen submitted for testing. False negative results are possible based on the timing and quality of specimen submitted for testing. This test is intended for use only under Emergency Use Authorization (EUA). This test was developed, and its performance characteristics determined by [facility] which is certified under CLIA as qualified to perform high complexity clinical laboratory testing. Performed By: #### C OVID19 #### S PATHOLOGY LABORATORY [address] [place] [address], TPPA Normal [facility] Comment on above: Order Comment: Not D etected results are indicative of the absence of SARS-CoV-2 in the specimen submitted for testing. False negative results are possible based on the timing and quality of specimen submitted for testing. This test is intended for use only under Emergency Use Authorization (EUA). This test was developed, and its performance characteristics determined by [facility] which is certified under CLIA as qualified to perform high complexity clinical laboratory testing. Performed By: #### C OVID19 #### S PATHOLOGY LABORATORY [address] [place] [address], TRIIODOTHYRONINE (T3)on 09-29 T3 135.6 ng/dL Normal 87.0-179.0 [facility] Comment on above: Performed By: #### T SH HS, T3, CRP #### S PATHOLOGY LABORATORY [address] [place], [place], TSHon 10-23-2022 TSH 3.964 uIU/mL Normal 0.450-5.330 [facility] Comment on above: Result Comment: Refe ludin range for women as applicable: First Trimester: 0. 050 to 3.700 uIU/mL Second Trimester: 0. 310 to 4.350 uIU/mL Third Trimester: 0. 410 to 5.180 uIU/mL Performed By: #### T SH HS, T3, CRP #### S PATHOLOGY LABORATORY [address], [place], Telephone Encounteron 2022 Employment Interviewer Authentication Interface Message Text Spoke to Domonique, pt sister Explained rationale for biopsy and transfer All questions answered Normal [facility] Employment Interviewer Authentication Interface Message Text PT's sister, Domonique calling in stating Dr. Aggarwal called and LVM for her regarding her sister that is inpatient. Please call Domonique back to discuss her sister Dx's [phone] ( PT will be home until 2:30 pm) Normal [facility] VANCOMYCIN TROUGHon 10-23-19 23 VANC TR 17.4 ug/mL Normal 10.0-20.0 [facility] Comment on above: Performed By: #### V ANC TR #### S [facility] LABORAT[facility] [address], [place], CBC WITH DIFFERENTIALon 09-29 Basophils (Bld) [#/Vol] 0.12 10*3/uL Normal 0.00-0.20 [facility] Comment on above: Performed By: #### C BCDSAT ####[facility] [id number] [place], [place], Basophils/100 WBC (Bld) 0.7 % Normal <=1.9 T [facility] Comment on above: Performed By: #### C BCDSAT ####[facility] [id number] [place], [place], Eosinophils (Bld) [#/Vol] 0.54 10*3/uL Normal 0.00-0.70 [facility] Comment on above: Performed By: #### C BCDSAT ####[facility] [id number] [place], [place], Eosinophils/100 WBC (Bld) 3.4 % Normal 0.1-4.0 [facility] Comment on above: Performed By: #### C BCDSAT ####[facility] [id number] [place], [place], Erythrocyte distribution width (RBC) [Ratio] 14.1 % Normal 11.5-14.5 [facility] Comment on above: Performed By: #### C BCDSAT ####[facility] [id number] [place], [place], Hematocrit (Bld) [Volume fraction] 35.3 % Low 36.0-46.0 [facility] Comment on above: Performed By: #### C BCDSAT ####[facility] [id number] [place], [place], Hemoglobin (Bld) [Mass/Vol] 11.4 g/dL Low 12.0-15.0 [facility] Comment on above: Performed By: #### C BCDSAT ####[facility] [id number] [place], [place], Lymphocytes (Bld) [#/Vol] 2.11 10*3/uL Normal 1.00-4.80 [facility] Comment on above: Performed By: #### C BCDSAT ####[facility] [id number] [place], [place], Lymphocytes/100 WBC (Bld) 13.2 % Low 24.0-44.0 [facility] Comment on above: Performed By: #### C BCDSAT ####[facility] [id number] [place], [place], MCH (RBC) [Entitic mass] 27.4 pg Normal 26.0-34.0 [facility] Comment on above: Performed By: #### C BCDSAT ####S PATHOLOGY [id number] [place], [place], MCHC (RBC) [Mass/Vol] 32.3 g/dL Normal 32.0-35.9 [facility] Comment on above: Performed By: #### C BCDSAT ####S PATHOLOGY [id number] [place], [place], MCV (RBC) [Entitic vol] 85 fL Normal 80-100 T [facility] Comment on above: Performed By: #### C BCDSAT ####S PATHOLOGY [id number] [place], [place], MONOCYTE DISTRIBUTION WIDTH Normal [facility] Comment on above: Performed By: #### C BCDSAT ####[facility] [id number] [place], [place], Monocytes (Bld) [#/Vol] 1.11 10*3/uL High 0.20-1.00 [facility] Comment on above: Performed By: #### C BCDSAT ####[facility] [id number] [place], [place], Monocytes/100 WBC (Bld) 7.0 % Normal 2.0-11.0 T [facility] Comment on above: Performed By: #### C BCDSAT ####[facility] [id number] [place], [place], Neutrophils (Bld) [#/Vol] 12.11 10*3/uL High 1.50-8.00 [facility] Comment on above: Performed By: #### C BCDSAT ####[facility] [id number] [place], [place], Neutrophils/100 WBC (Bld) 75.7 % Normal 31.0-76.0 [facility] Comment on above: Performed By: #### C BCDSAT ####S PATHOLOGY [id number] [place], [place], Platelet mean volume (Bld) [Entitic vol] 8.0 fL Normal 7.5-11.2 [facility] Comment on above: Performed By: #### C BCDSAT ####S PATHOLOGY [id number] [place], [place], Platelets (Bld) [#/Vol] 332 10*3/uL Normal 150-400 [facility] Comment on above: Performed By: #### C BCDSAT ####[facility] [id number] [place], [place], RBC (Bld) [#/Vol] 4.16 10*6/uL Normal 4.00-5.20 [facility] Comment on above: Performed By: #### C BCDSAT ####[facility] [id number] [place], [place], WBC (Bld) [#/Vol] 16.0 10*3/uL High 4.5-11.5 [facility] Comment on above: Performed By: #### C BCDSAT ####S PATHOLOGY [id number] [place], [place], Care Plan Noteon 10-22-2022 Employment Interviewer Authentication Interface Message Text Ophthal called me and recommended transfer to [facility]/ for Oculoplastic Orbital surgery for biopsy Patient requested me to talk with her sister, Domonique who is a HCW. I discussed the above recommendations and she preferred [facility] transfer. Will initiate the process tomorrow. Normal [facility] Employment Interviewer Authentication Interface Message Text Problem: Routine Care: Goal: Patient care will be managed and maintained throughout hospital stay per unit specific routine care procedure Outcome: Progressing Problem: Safety: Goal: Patient will remain free of falls during hospital stay Outcome: Progressing Problem: Acute Pain: Goal: Ability to identify pain intensity on a pain scale and rate it consistently will be achieved and maintained Outcome: Progressing Problem: VTE Prophylaxis: Goal: Will be free of DVT Outcome: Progressing Problem: Discharge Planning: Goal: Discharge needs of the adult patient will be met Outcome: Progressing Normal [facility] Progress Noteson 10-22-2022 Employment Interviewer Authentication Interface Message Text Attestation signed by Suha Oliveira MD at 10/22/2022 7:23 PM Teaching Physician Note: I saw and evaluated the patient. I personally obtained the ochoa and critical portions of the history and physical exam. I reviewed the fellow's documentation and discussed the patient with the fellow. I agree with the medical decision making as documented in the fellow's note. Pt very upset bc of need for biopsy. Of note, she has improved on IV atb (Vanc and piperacillin/ tazobactam) and these should be continued. If there is a delay in transfer, rec repeat MRI in a few days to evaluate process given her clinical improvement. Suha Oliveira MD ID FOLLOW UP INTERVAL HISTORY: Patient is concern about possible malignancy and is on the phone with family. Per chart review she remains afebrile. Ophthalmology recommended transfer to [facility] or for oculoplasty due to concern of malignancy. PHYSICAL EXAMINATION: Patient Vitals for the past 24 hrs: Vitals: 10/22/22 1756 BP: 133/95 Pulse: 100 Resp: 18 Temp: 98.5 ???F (36.9 ???C) SpO2: 92% General: alert, in no distress, well appearing Eyes: R eye injected with periorbital erythema and swelling. Integumentary: no skin rashes Neurologic: alert, moving all extremities Lines: IV peripheral w/o erythema DATA: Labs reviewed. CBC WBC RBC Hgb Hct MCV RDW Plt 10/22/22 0958 16.0 4.16 11.4 35.3 85 14.1 332 10/20/22 0910 14.8 4.41 12.4 37.4 85 14.0 359 Basic Metabolic Panel Na K Cl CO2 Gap Glu BUN Cr Ca Mg PO4 10/20/22 0910 137 4.3 102 28 11 96 10 0.56 9.4 Creatinine clearance from Cockroft-Gault: 89 ml/min based on creatinine of 0.56 on 10/20/2022 using IBW 52.4 kg (actual weight 60.3 kg ignored) Estimated GFR: 105 on 10/20/2022 IMAGING STUDIES: No new imaging in the last 24 hours Micro: None Antimicrobials: Clindamycin 10/20 Zosyn 10/21-p Vancomycin 10/20-p ASSESSMENT/PLAN: Mrs Banuelos is a 57 year old female with a PMH of COPD, anxiety, HTN and tobacco use who is admitted due to R eye swelling erythema and pain with movement. Concerning for orbital cellulitis of R eye. Broaden to vancomycin and zosyn. ID consulted for abx recs Diagnosis R eye orbital cellulitis Patient has improved erythema and edema of R eye, but diplopia persists. ENT and Ophthalmology concern for other non-infectious causes such as autoimmune vs malignancy. Agree that differential diagnosis could include other non-infectious cause, but she has also a R eye periorbital cellulitis which could be a superimposed infection vs the etiology of patient's current symptoms. Recommendations: -Continue vancomycin for a goal trough of 15-20. -Continue Zosyn 4.5 gr q6hr IV -ENT scope negative for fungal infection (10/21) -Ophthalmology on board. Recommended transfer to [facility] or for oculoplasty and biopsy to determine etiology due to concern for infiltrative process. ID will continue to follow Findings and recommendations discussed with Dr. Oliveira. Car Dorado MD ID fellow, PGY-4 Pager: [phone] Normal [facility] Employment Interviewer Authentication Interface Message Text Teaching Physician Note: I saw and evaluated the patient. I personally obtained the ochoa and critical portions of the history and physical exam. I reviewed the resident's documentation and discussed the patient with the resident. I agree with the resident's medical decision making as documented in the resident's note. red swell RT lids and eye x 2mo no fever or chills ; not toxic no injury RT lid erythema and entropion; mild proptosis mild i jection eom full MTI shows infiltartaive process to orbit and RT face plan-spoke with pcp , and we rec refer to orbital surgeon for biopsy: O-P at [facility] or Uri Peña MD Normal [facility] Employment Interviewer Authentication Interface Message Text Daily follow up visit 1. Periorbital/orbital inflammation, OD Course - new onset periocular swelling, redness for over a month, fluctuating nature - had been getting better on PO antibiotics, received azithromycin, but then worsened - no history of trauma or sinusitis - says eyelids infermittently swollen shut - localized throbbing headache, pain with EOM, kacie supraduction - presented to outside ED that did not have beds, sent to [facility] for possible admission for orbital cellulitis - received one dose of clindamycin, apparently improving - PMH of COPD with recent exacerbation, ETOH hx of pancreatitis - Since 10/20/22, tracking with daily examination Labs - Pending ANCA, IgG4 - CT Chest 10/20/22 - No acute process, no LAD. 2mm right upper nodule. - Outside ED labs: WBC 13.9, ESR 75, CRP 42 Imaging - CT from OSH at 1900 on 10/19/22 not showing abscess - MRI Orbit 10/[address] showing No change from CT, reported diffuse infiltration of right pterygoid, temporalis, retroantral fat pad extending into the pterygopalatine fossa and through inferior orbital fissure into the inferior and lateral extraconal space. Thickening of the inferior and lateral rectus muscles. Thickening and infiltration of the lacrimal gland.There is minimal enhancement of the right vidian nerve (Series 15, Image 4-5) and the anterior aspect of T2 in the infraorbital canal (Series 14, Image 8) extending to the rotundum. On review of imaging, also see intraconal and extraconal fat stranding and thickening of the superior rectus muscle. Scope at bedside 10/21 was unremarkable Medications Vanc and zosyn day 2 Assessment - Right orbital inflammation extending from orbit into the pterygopalatine fossa; unclear etiology - Hertels at 116 today - Today's exam is unchanged over last 2 days : Patient has VA 20/25 ph, no APD, full color plates OU, -1 supraduction and -2 infraduction, mild injection and chemosis and caruncular edema on slit lamp exam. - Ddx: orbital malignancy, NSOI, IgG4, fungal infection, orbital cellulitis, systemic inflammation (GPA, RA, SLE, Graves) Recommendations: - continue broad spectrum antibiotic coverage - Recommend ID consultation and blood cultures - Muscle enlargement may indicate thryoid disease. Recommend thyroid labs (TSH/T3/T4) - Appreciate recommendations from ENT - Recommend transfer to or [facility] for oculoplastics care. The patient will likely require a cut-down biopsy to determine etiology of inflammation, which ophth is not equipped to do. 2. 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 Pt Voices understanding of plan and AVS. Jaime Aggarwal MD Ophthalmology Resident Seen and discussed with Dr. Kidd and Normal [facility] Care Plan Noteon 10-21-2022 Employment Interviewer Authentication Interface Message Text Problem: Routine Care: Goal: Patient care will be managed and maintained throughout hospital stay per unit specific routine care procedure Outcome: Progressing Problem: Safety: Goal: Patient will remain free of falls during hospital stay Outcome: Progressing Problem: Acute Pain: Goal: Ability to identify pain intensity on a pain scale and rate it consistently will be achieved and maintained Outcome: Progressing Problem: VTE Prophylaxis: Goal: Will be free of DVT Outcome: Progressing Problem: Discharge Planning: Goal: Discharge needs of the adult patient will be met Outcome: Progressing Normal [facility] Employment Interviewer Authentication Interface Message Text Problem: Routine Care: Goal: Patient care will be managed and maintained throughout hospital stay per unit specific routine care procedure Outcome: Progressing Problem: Safety: Goal: Patient will remain free of falls during hospital stay Outcome: Progressing Problem: Acute Pain: Goal: Ability to identify pain intensity on a pain scale and rate it consistently will be achieved and maintained Outcome: Progressing Problem: VTE Prophylaxis: Goal: Will be free of DVT Outcome: Progressing Problem: Discharge Planning: Goal: Discharge needs of the adult patient will be met Outcome: Progressing Normal [facility] Consultson 10-21-2022 Employment Interviewer Authentication Interface Message Text Attestation signed by Suha Oliveira MD at 10/21/2022 9:11 PM Teaching Physician Note: I saw and evaluated the patient. I personally obtained the ochoa and critical portions of the history and physical exam. I reviewed the fellow's documentation and discussed the patient with the fellow. I agree with the medical decision making as documented in the fellow's note. Pt with about 1 month h/o left eye redness, swelling and pain. Today notes double vision. Has improvement in left eye redness and swelling since starting on IV vanc and pip/tazo. MRI noted possibility of invasive fungal infection, however pt clinically improving. ENT consulted MRI reviewed: infiltration of the retroantral fat pad extending into the pterygopalatine fossa and orbit. There is enhancement of the right vidian and V2 nerves. The Meckel's cave and cavernous sinus are normal.. Imp Orbital Cellulitis- cont vanc and piperacillin/ tazobactam, suggest ENT scope sinuses to confirm no evid for invasive fungal infection. Suha Oliveira MD INITIAL VISIT/CONSULT Referred by: Robby Bush MD Primary MD: No primary care provider on file. Chief Complaint/Reason for Consult: Preseptal cellulitis HPI/Hospital Course: Mrs Banuelos is a 57 year old female with a PMH of COPD, anxiety, HTN and tobacco use who is admitted due to R eye swelling erythema and pain with movement. She initially presented to OSH for assessment but referred to for admission. Patient reported that she has 1 month hx of eye swelling. She has seen prior eye doctor and recently got prescribed Azithromycin on 10/17 for a 5 day course. She also reported episodes of subjective fever and night sweats. On ED arrival, patient was hemodynamically stable. Lab work up showed leukocytosis at WBC 13.9>14.8, ESR elevated 75 and CRP 42. Ophthalmology was consulted and concern for orbital cellulitis vs systemic inflammation. Recommended further imaging. Today, MRI was performed and concerning for invasive fungal infection and mild asymmetric R proptosis. However, clinically patient reported improvement of swelling and remains w/o systemic symptoms. ENT was consulted and planning to scope patient. REVIEW OF SYSTEMS: Constitutional Symptoms: no fevers/chills, no night sweats, no weight loss, no fatigue Eyes: Positive for double vision. Ears, nose and throat: no oral lesions, no rhinorrhea IV access site: no erythema, pain, drainage or swelling Cardiovascular: no chest pain, no shortness of breath, no edema Respiratory: no shortness of breath, no cough Gastrointestinal: no abd pain, no n/v/d, no constipation Genitourinary: no dysuria, no change in frequency Skin/Breast: no new skin rash Neurologic: no new numbness or tingling of the extremities Past Medical History: Past Medical History: Diagnosis Date Anxiety disorder, unspecified COPD (chronic obstructive pulmonary disease) (HCC) Hypertension Past Surgical History: History reviewed. No pertinent surgical history. Allergies: Allergies Allergen Reactions Bode [Acetaminophen-Hydrocod one] Penicillins Medications: Current Facility-Administered Medications Medication Dose Route Frequency Last Rate Last Admin ipratropium-albuterol (DUO-NEB) 0.5-2.5 (3) MG/3ML nebulizer solution 3 mL Nebulization QID RT 3 mL at 10/21/22 1140 ondansetron (ZOFRAN-ODT) disintegrating tablet 4 mg Oral Q6H PRN 4 mg at 10/21/22 0057 piperacillin-tazobactam in D5W (ZOSYN) 3,375 mg in dextrose 50 mL ivpb 3.375 g Intravenous Q6H Antibiotic 100 mL/hr at 10/21/22 1533 3,375 mg at 10/21/22 1533 diphenhydrAMINE (BENADRYL) 50 MG/ML injection 12.5 mg Intravenous Push Q6H PRN 12.5 mg at 10/21/22 1203 esomeprazole (NEXIUM) capsule 40 mg Oral Daily 30 min before breakfast 40 mg at 10/21/22 0919 atorvastatin (LIPITOR) tablet 20 mg Oral At Bedtime 20 mg at 10/20/22 2209 [MAR Hold] albuterol (PROVENTIL) (2.5 MG/3ML) 0.083% nebulizer solution 2.5 mg Nebulization Q4H RT 2.5 mg at 10/21/22 0057 albuterol (PROVENTIL) (2.5 MG/3ML) 0.083% nebulizer solution 2.5 mg Nebulization Q4H PRN [MAR Hold] ipratropium (ATROVENT) 0.02 % nebulizer solution 0.5 mg Nebulization Q4H RT 0.5 mg at 10/21/22 0057 vancomycin (VANCOCIN) 1,250 mg/250 mL iv soln (ROOM TEMP PREMIX) 20 mg/kg Intravenous Every 12 hours 125 mL/hr at 10/21/22 1845 1,250 mg at 10/21/22 1845 vancomycin dosing pharmacy consult Other As Directed enoxaparin (LOVENOX) 40 MG/0.4ML injection 40 mg 40 mg Subcutaneous Daily 40 mg at 10/21/22 0919 oxyCODONE immediate release tablet 5 mg Oral Q4H PRN 5 mg at 10/21/22 1533 HYDROmorphone (DILAUDID) 1 mg/mL injection 0.5 mg Intravenous Push Q4H PRN 0.5 mg at 10/21/22 1632 ARIPiprazole (ABILIFY) tablet 5 mg Oral At Bedtime 5 mg at 10/20/22 2209 [id number] (CREON (more content not included)... Normal [facility] MR HEAD/ORBIT W/Oon 10-21-19 MR HEAD/ORBIT W/O EXAMINATION: MR HEAD/ORBIT W/O 10/21/2022 11:25 AM CLINICAL HISTORY: Periorbital cellulitis ASSOCIATED DIAGNOSIS: Periorbital cellulitis ORDERING PROVIDER: ROBBY BUSH TECHNOLOGISTS NOTE: Patient attempted 10/20 evening - Only a few scans completed before patient wanted out. Came thru ED and was sent back there for meds but was transferred to floor before meds ordered/exam completed. 10/21 5:00am - Called floor for status update - No answer and no RN associated w/patient in EPIC Patient unable to hold still and unwilling to continue without medication. Exam changed to without contrast. Best possible images. COMPARISON: Correlation with outside CT soft tissue face dated 10/19/2022 at 7:30 5:00 PM. TECHNIQUE: Patient questionnaire was completed and was reviewed by MRI personnel prior to the patient entering the scanner. Multiplanar, multisequence MR imaging of the brain and orbits was performed without intravenous contrast. INTRA-PROCEDURE MEDS: FINDINGS: The study is incomplete with only a diffusion, axial T2 and T1 imaging obtained. In addition the diffusion is limited given technical artifacts. There is abnormal infiltration throughout the right retroantral fat as well as the right lateral extraconal fat with mild asymmetric enlargement of the right lateral and right inferior rectus. In correlating with the CT there is also infiltration of the right pterygopalatine fat and diffuse abnormal infiltration throughout the right assistant associate full professor space with asymmetric enlargement of the right muscles of mastication most pronounced involving the lateral pterygoid. Mild mucosal thickening is noted in the right maxillary sinus. The infiltrative pattern raises concern for invasive fungal sinusitis. There is mild asymmetric right proptosis. 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 IMPRESSION: 1. Incomplete exam. 2. Abnormal infiltration throughout the right retroantral and extraconal fat as well as the pterygopalatine fossa and diffusely throughout the right assistant associate full professor space with asymmetry of the muscles of mastication. Additional mild enlargement of the right inferior and lateral rectus. These findings are highly concerning for invasive fungal sinusitis until proven otherwise. 3. Mild asymmetric right proptosis. MACRO: Notification of the critical finding of suspected invasive fungal sinusitiswas initiated at 11:27 AM EST on 10/21/2022. Nima Kamara successfully contacted Dr. Elliot Rapp at 11:27 AM EST on 10/21/2022, via telephone, who acknowledged the critical finding with read back verification. (-CF-) Normal [facility] MR ORBIT W/+W/Oon 10-21-2022 MR ORBIT W/+W/O EXAMINATION: MR ORBI T W/+W/O 10/21/2022 02:17 PM CLINICAL HISTORY: Periorbital cellulitis ASSOCIATED DIAGNOSIS: Periorbital cellulitis ORDERING PROVIDER: ROBBY BUSH TECHNOLOGISTS NOTE: COMPARISON: None TECHNIQUE: Patient questionnaire was completed, and was reviewed by MRI personnel prior to the patient entering the scanner. Multiplanar, multisequence MR imaging of the orbits was performed with and without intravenous contrast. INTRA-PROCEDURE MEDS: Gadoterate Meglumine (DOTAREM) 10 MMOL/20ML solution 12 mL Route: Intravenous Push FINDINGS: GLOBES: Right globe proptosis. LACRIMAL GLANDS: Thickening and enhancing of the right lacrimal gland. RETROBULBAR FAT: Extraconal fat infiltration especially in the inferior lateral aspect. EXTRAOCULAR MUSCLES: Infiltration of the lateral and inferior rectus muscles. OPTIC PATHWAY: Optic nerves, chiasm and tracts are normal. No abnormalities involving the included portions of the optic radiations. CAVERNOUS SINUSES: Normal. INCLUDED BRAIN PARENCHYMA: Within normal limits. EXTRACRANIAL STRUCTURES: There is mucosal thickening in the right maxillary sinus. There is diffuse infiltration of the right muscles of the assistant associate full professor (pterygoids and the temporalis), retroantral fat pad extending into the pterygopalatine fossa and subsequently through the inferior orbital fissure into the inferior and lateral extraconal space. There is thickening of the inferior and lateral rectus muscles. There is thickening and infiltration of the lacrimal gland. There is minimal enhancement of the right vidian nerve (Series 15, Image 4-5) and the anterior aspect of T2 in the infraorbital canal (Series 14, Image 8) extending to the rotundum. Differential diagnosis including atypical organism, invasive fungal and less likely autoimmune disease. IMPRESSION: No change in the infiltration of the retroantral fat pad extending into the pterygopalatine fossa and orbit. There is enhancement of the right vidian and V2 nerves. The Meckel's cave and cavernous sinus are normal. MACRO: None Normal [facility] Progress Noteson 10-21-2022 Employment Interviewer Authentication Interface Message Text [id number] Stein requesting robitussin. Normal [facility] Employment Interviewer Authentication Interface Message Text Pharmacokinetic Dosing Service - VANCOMYCIN Name: Gracie Banuelos Age:[age] year old Gender: female Ht: 5' 3 Wt: no weight Indication: Central Nervous System (PRESTIDIGITATOR) and orbital cellulitis Desired Ranges: 15-20 Day of therapy: 2 Assessment and Recommendations: 10/21/22 HROBINSON1- Day 2: Central Nervous System (PRESTIDIGITATOR) and orbital cellulitis ; Renal function: stable; No change recommended. Next level Due:prior to 4th dose. Level not ordered Current Dose Active Vancomycin Orders (From admission, onward) Start Stop 10/20/22 7385 vancomycin (VANCOCIN) 1,250 mg/250 mL iv soln (ROOM TEMP PREMIX) 20 mg/kg, Intravenous, EVERY 12 HOURS Question: Suspected Source/Reason for Therapy Answer: Central Nervous System (PRESTIDIGITATOR) -- 10/20/22 1653 vancomycin dosing pharmacy consult Other, As Directed Question: Suspected Source/Reason for Therapy Answer: Central Nervous System (PRESTIDIGITATOR) -- Lab Values: Creatinine Date Value Ref Range Status 10/20/2022 0.56 0.50 - 1.10 mg/dL Final Lab Results Component Value Date/Time VANCTR 16.6 10/21/2022 03:44 PM No results found for: VANCR Serum creatinine: 0.56 mg/dL 10/20/22 0910 Estimated creatinine clearance: 89.48 mL/min Culture(s): PENDING. Chelsea Montilla [facility] - Department of Pharmacy Services Normal [facility] [employer] Employment Interviewer Authentication Interface Message Text Follow up visit 1. Periorbital/orbital inflammation, OD Course - new onset periocular swelling, redness for over a month, fluctuating nature - had been getting better on PO antibiotics, received azithromycin, but then worsened - no history of trauma or sinusitis - says eyelids infermittently swollen shut - localized throbbing headache, pain with EOM, kacie supraduction - presented to outside ED that did not have beds, sent to [facility] for possible admission for orbital cellulitis - received one dose of clindamycin, apparently improving - PMH of COPD with recent exacerbation, ETOH hx of pancreatitis Labs - Outside ED labs: WBC 13.9, ESR 75, CRP 42 Imaging - CT from OSH at 1900 on 10/19/22 not showing abscess - MRI Orbit 10/21 showing No change from CT, reported diffuse infiltration of right pterygoid, temporalis, retroantral fat pad extending into the pterygopalatine fossa and through inferior orbital fissure into the inferior and lateral extraconal space. Thickening of the inferior and lateral rectus muscles. Thickening and infiltration of the lacrimal gland.There is minimal enhancement of the right vidian nerve (Series 15, Image 4-5) and the anterior aspect of T2 in the infraorbital canal (Series 14, Image 8) extending to the rotundum. On review of imaging, also see intraconal and extraconal fat stranding and thickening of the superior rectus muscle. Assessment - Right orbital inflammation extending from orbit into the pterygopalatine fossa; unclear etiology - Today's exam is unchanged from yesterday's: Patient has VA 20/25 ph, no APD, full color plates OU, -1 supraduction and -2 infraduction, mild injection and chemosis and caruncular edema on slit lamp exam. Hertels 15, 15, at 103 mm. - Ddx: NSOI, IgG4, fungal infection, orbital cellulitis, systemic inflammation (GPA, RA, SLE, Graves), orbital malignancy (less likely) - inflammatory markers elevated on recent labs - May be fungal etiology given indolent nature vs. Inflammatory process - while infectious orbital cellulitis remains on differential, no apparent abscess to fit timeline or appearance on exam Recommendations: - continue broad spectrum antibiotic coverage, strongly recommend ID consultation for their assessment - Recommend obtaining blood cultures - Recommend ancillary testing to rule out inflammatory orbital process: - ARUNA - CXR - ANCA - IgG4 - Thyroid labs (TSH/T3/T4) - Appreciate recommendations from ENT, if patient does not improve on abx would recommend pursuing biopsy for definitive diagnosis Opthalmology will continue to follow for signs of optic neuropathy Please page with worsening vision, changing pupil exam, worsening swelling/proptosis on exam Noreen Denson MD and Jaime Aggarwal MD Normal [facility] [employer] Employment Interviewer Authentication Interface Message Text Pt states that she seeing double with both eyes open The images are vertical, one on top of the other. It doesn't happen all day. It comes and goes. VA: OD cc: 20/30+3 OS:cc: 20/40-2 Ph: 20/25-1 Pupil OU 3/round/minimal/none EOM: Full CVF OU: Full IOP OD: 11 OS:08 Normal [facility] VANCOMYCIN TROUGHon 10-21-19 23 VANC TR 16.6 ug/mL Normal 10.0-20.0 [facility] Comment on above: Performed By: #### V ANC TR ####[facility] [id number] [place], [id number] BASIC METABOLIC PANELon 09-29 Anion gap [Moles/Vol] 11 mmol/L Normal 10-20 [facility] Comment on above: Performed By: #### C H8 #### [facility] [address] [place], [id number] Calcium [Mass/Vol] 9.4 mg/dL Normal 8.4-10.4 [facility] [employer] [facility] Comment on above: Performed By: #### C H8 #### [facility] [address], [place], Chloride [Moles/Vol] 102 mmol/L Normal 97-111 [facility] [facility] Comment on above: Performed By: #### C H8 #### [facility] [address], [place], CO2 [Moles/Vol] 28 mmol/L Normal 21-30 [facility] [facility] Comment on above: Performed By: #### C H8 #### [facility] [address], [place], Creatinine [Mass/Vol] 0.56 mg/dL Normal 0.50-1.10 [facility] Comment on above: Performed By: #### C H8 #### [facility] [address], [place], ESTIMATED GFR (CKD-EPI) 105 mL/min/1.73sqm Normal >=60 [facility] [employer] [facility] Comment on above: Result Comment: 2020 CKD EPI Equation using Creatinine without Race Comment: Estimated glomerular filtration rate (eGFR) is calculated without a race coefficient. Values should be interpreted in the context of the patient's full clinical presentation. Reference: 1. Judson C, Amanda M, Isamar GUNDERSON, et al.. A Unifying Approach for GFR Estimation: Recommendations of the NKF-ASN Task Force on Reassessing the Inclusion of Race in Diagnosing Kidney Disease. Citizen Of [place] Journal of Kidney Diseases 2021;79(2):268-88.e1. 2. N Engl J Med 2020 Vol. 385 Issue 19 Pages [id number] Performed By: #### C H8 #### [facility] [address], [place], Glucose [Mass/Vol] 96 mg/dL Normal 68-110 [facility] Comment on above: Performed By: #### C H8 #### [facility] [address], [place], Potassium [Moles/Vol] 4.3 mmol/L Normal 3.3-5.3 [facility] Comment on above: Performed By: #### C H8 #### [facility] [address], [place], Sodium [Moles/Vol] 137 mmol/L Normal 135-148 [facility] Comment on above: Performed By: #### C H8 #### [facility] [address], [place], Urea nitrogen [Mass/Vol] 10 mg/dL Normal 8-22 [facility] Comment on above: Performed By: #### C H8 #### [facility] [address], [place], CBC WITH DIFFERENTIALon 09-29 Basophils (Bld) [#/Vol] 0.19 10*3/uL Normal 0.00-0.20 [facility] Comment on above: Performed By: #### C OVID19 #### [facility] [address] [place] [address], Basophils/100 WBC (Bld) 1.3 % Normal <=1.9 T [facility] Comment on above: Performed By: #### C OVID19 #### [facility] [address], [place], Eosinophils (Bld) [#/Vol] 0.52 10*3/uL Normal 0.00-0.70 [facility] Comment on above: Performed By: #### C OVID19 #### [facility] [address], [place], Eosinophils/100 WBC (Bld) 3.5 % Normal 0.1-4.0 [facility] Comment on above: Performed By: #### C OVID19 #### [facility] [address], [place], Erythrocyte distribution width (RBC) [Ratio] 14.0 % Normal 11.5-14.5 [facility] Comment on above: Performed By: #### C OVID19 #### [facility] [address], [place], Hematocrit (Bld) [Volume fraction] 37.4 % Normal 36.0-46.0 [facility] Comment on above: Performed By: #### C OVID19 #### [facility] [address], [place], Hemoglobin (Bld) [Mass/Vol] 12.4 g/dL Normal 12.0-15.0 [facility] Comment on above: Performed By: #### C OVID19 #### [facility] [address] [place] [address], Lymphocytes (Bld) [#/Vol] 2.87 10*3/uL Normal 1.00-4.80 [facility] Comment on above: Performed By: #### C OVID19 #### [facility] [address], [place], Lymphocytes/100 WBC (Bld) 19.5 % Low 24.0-44.0 [facility] Comment on above: Performed By: #### C OVID19 #### [facility] [address] [place] [address], MCH (RBC) [Entitic mass] 28.1 pg Normal 26.0-34.0 [facility] Comment on above: Performed By: #### C OVID19 #### [facility] [address] [place] [address], MCHC (RBC) [Mass/Vol] 33.2 g/dL Normal 32.0-35.9 [facility] Comment on above: Performed By: #### C OVID19 #### [facility] [address] [place] [address], MCV (RBC) [Entitic vol] 85 fL Normal 80-100 T [facility] Comment on above: Performed By: #### C OVID19 #### [facility] [address] [place] [address], MONOCYTE DISTRIBUTION WIDTH 19 Normal <=20 [facility] Comment on above: Performed By: #### C OVID19 #### [facility] [address] [place] [address], Monocytes (Bld) [#/Vol] 1.30 10*3/uL High 0.20-1.00 [facility] Comment on above: Performed By: #### C OVID19 #### [facility] [address], [place], Monocytes/100 WBC (Bld) 8.8 % Normal 2.0-11.[address] [facility] Comment on above: Performed By: #### C OVID19 #### [facility] [address], [place], Neutrophils (Bld) [#/Vol] 9.87 10*3/uL High 1.50-8.00 [facility] Comment on above: Performed By: #### C OVID19 #### [facility] [address], [place], Neutrophils/100 WBC (Bld) 66.9 % Normal 31.0-76.0 [facility] Comment on above: Performed By: #### C OVID19 #### [facility] [address], [place], Platelet mean volume (Bld) [Entitic vol] 8.1 fL Normal 7.5-11.2 [facility] Comment on above: Performed By: #### C OVID19 #### [facility] [address], [place], Platelets (Bld) [#/Vol] 359 10*3/uL Normal 150-400 [facility] Comment on above: Performed By: #### C OVID19 #### [facility] [address], [place], RBC (Bld) [#/Vol] 4.41 10*6/uL Normal 4.00-5.20 [facility] Comment on above: Performed By: #### C OVID19 #### [facility] [address], [place], WBC (Bld) [#/Vol] 14.8 10*3/uL High 4.5-11.5 [facility] Comment on above: Performed By: #### C OVID19 #### [facility] [address], [place], CT CHEST W/O CONTRASTon 09-29 CT CHEST W/O CONTRAST EXAMINATION: CT CH EST W/O CONTRAST 10/20/2022 06:05 PM CLINICAL HISTORY: Hilar lymphadenopathy; Interstitial Lung disease; ?sarcoidosis ASSOCIATED DIAGNOSIS: Hilar lymphadenopathy Interstitial lung disease ?sarcoidosis ORDERING PROVIDER: ROBBY BUSH TECHNOLOGISTS NOTE: COMPARISON: None TECHNIQUE: Contiguous axial images of the chest without contrast were obtained from above the lung apices through the level of the adrenal glands. 2D sagittal and coronal reconstructions were obtained from the axial data. FINDINGS: Cardiovasculature: The heart is normal in size. Severe three-vessel coronary calcification. Atherosclerotic calcifications within the thoracic aorta. Mitral annular calcification. Mediastinum/Pericardium : Unremarkable Pleura: Unremarkable Central Airways: Widely patent. Layering of secretions in the right lower lobe bronchus. Lungs: Centrilobular emphysema is present. Bibasilar atelectasis. Nodules: 2 mm nodule in the right lower lobe medially (Series 3, Image 99) Lymph Nodes: No thoracic lymphadenopathy is evident. Included images of the upper abdomen: Small hiatal hernia. 1.1 cm cyst in the left interpolar region. Coarse calcification in the region of the uncinate process/pancreatic head, which can be seen in the setting of chronic pancreatitis. Punctate calcification in the right interpolar region, could represent a nonobstructive calculus versus vascular calcification. Visualized musculoskeletal structures: Degenerative disc disease is present with endplate spurring. IMPRESSION: 1. No acute process. No hilar and mediastinal lymphadenopathy. 2. Centrilobular emphysema. No changes of interstitial lung disease. 3. 2 mm nodule in the right lung. Based on the 2017 Fleischner Society guidelines, no follow is necessary if this patient is considered low risk for lung cancer. If the patient is considered high risk, a follow-up CHEST W/O CONTRAST (code: [id number]) is optional at 12 months. 4. Severe coronary artery calcifications. Mitral annular calcification. MACRO: None Normal [facility] 10-20-2022 Employment Interviewer Authentication Interface Message Text Attestation signed by Alem Alonso MD at 10/21/2022 10:17 AM Teaching Physician Note: I saw and evaluated the patient. I personally obtained the ochoa and critical portions of the history and physical exam. I reviewed the resident's documentation and discussed the patient with the resident. I agree with the resident's medical decision making as documented in the resident's note. Alem Alonso MD ENT CONSULTATION NOTE Reason for consult: right eyelid swelling and erythema HPI: Gracie Banuelos is a 57 year old female with a PMHx of COPD who presents to the ED with a one month history of right eye swelling and erythema. She also has 8/10 pain in the right eye and a subjective decrease in visual acuity. She was started on clindamycin yesterday in the [place] ED with improvement in her symptoms. She cannot recall an inciting event. This has never happened to her before. Denies a personal history of autoimmune disease. She was placed on eye drops but does not recall the name. Has a history of rhinitis but no recent recent sinus infections. She has had less tearing out of her right eye over the past few days. ROS: 14 point review of systems completed and all negative except as noted in HPI. PMHx; As per HPI PSHx: appendectomy SH: current smoker, 30 pack year, former EOTH use but quite 2 years ago FH: Does not know if she has a FH of autoimmune disease Allergies: PCN-->hives Vital signs: Vital sign ranges over the past 24 hours (retrieved 10/20/2022 at 3:28 PM): Tmax (24 hours): 98.8 ???F (37.1 ???C) Pulse Av.5 Min: 85 Max: 100 Systolic (24hrs), Av , Min:130 , Max:149 Diastolic (24hrs), Av, Min:55, Max:58 No data recorded Resp Av Min: 16 Max: 16 SpO2 Av % Min: 95 % Max: 95 % Physical Exam: CONSTITUTIONAL: No acute distress VOICE: No hoarseness or other abnormality RESPIRATION: Breathing comfortably, no stridor CV: No clubbing/cyanosis/edema in hands EYES: EOMI, right periorbital erythema and edema as seen below, sclera with slight inflammation, pupils recently dilated by optho NEURO: Alert and oriented times 3, Cranial nerves II-XII grossly intact and symmetric bilaterally HEAD AND FACE: Symmetric facial features, no masses or lesions, sinuses non-tender to palpation EARS: normal hearing to whispered voice. Right ear: Normal external ear, EAC, TM intact Left ear: Normal external ear, EAC, TM intact NOSE: External nose midline, anterior rhinoscopy is normal with limited visualization to the anterior aspect of the interior turbinates, no bleeding or drainage, no lesions, septum deviated to the left ORAL CAVITY/OROPHARYNX/LIPS: Normal mucous membranes, normal floor of mouth/tongue/OP, no masses or lesions PHARYNGEAL HERNANDEZ: No masses or lesions NECK/LYMPH: No LAD, no thyroid masses, trachea midline SKIN: Neck skin is without scar or injury Radiology reviewed: I personally reviewed the OSH CT which shows enhancement of the right lacrimal gland and lateral rectus muscle with associated inflammatory changes of the right orbit. Mild mucosal thickening of the right maxillary sinus. Other Studies/Information: I personally reviewed the cosmetic consultant notes or primary team notes as well as the following other studies: CBC WBC RBC Hgb Hct MCV RDW Plt 10/20/22 0910 14.8 4.41 12.4 37.4 85 14.0 359 Basic Metabolic Panel Na K Cl CO2 Gap Glu BUN Cr Ca Mg PO4 10/20/22 0910 137 4.3 102 28 11 96 10 0.56 9.4 [place] negative, RF negative, TSH 2.1 from fall 2021 Assessment/Plan: 57 year old female with suspicion of dacroadenitis with with possible orbital cellulitis. No evidence of sinus disease. -Agree with inpatient admission with IV antibiotics, could consider a cephalosporin as patient has a history of a hives with PCN as a teenager but no history of anaphylaxis -F/u MRI orbit w/ contrast -Could consider additional auto-immune work up including SS-A/SS-B antibodies, serum IgG4 level, C-ANCA -Could obtain a CXR to eval for sarcoidosis - No acute indication for an orbital or lacrimal gland biopsy from ENT standpoint as this appears to be reserved for patients with refractory disease who have failed antibiotic therapy and have previously undergone a complete diagnostic work up including imaging and laboratory analysis as listed above Seen and staffed with Dr. Car Rapp MD Otolaryngology - Head AND Neck Surgery ENT Team Pager: [phone] Normal [facility] ED Provider Noteson 10-20-19 Employment Interviewer Authentication Interface Message Text ENT and med admit 57 year old female h/o COPD // following with eye at OSH with preseptal cellulitis // worse for one week // OSH does CT with orbital cellulitis - sent to ED for admit // eye recs are in here which includes orbital bx // ENT needs to see in ED to determine if this can be done // plan for admit to medicine Above from sign out. ENT has seen and evaluated, recommend admission for IV abx, further k1isetln as delineated in their note. No indication for biopsy at this time. Will repage team 7 med and update. Janeth Kamara MD Normal [facility] Employment Interviewer Authentication Interface Message Text EMERGENCY DEPARTMENT - VISIT NOTE ------- HISTORY OF PRESENT ILLNESS --- Chief Complaint Patient presents with Eye pain Transfer from osh for R eye cellulitis Self Contained Behavior Unit Teacher: not needed - patient preferred language is [place]. The history is provided by the Patient. Gracie Banuelos is a 57 year old female presenting to the ED for eye pain for 1 month. Spontaneous in onset w/out trauma or inciting event. Progressive 1 month. Associated blurry vision. Intermittently swollen shut. Notes throbbing localized headache, taking ibuprofen with minimal relief. No discharge. Pain with extraocular movements. Wears glasses, no contacts. Seen at OSH tried PO antibiotics which helped somewhat, re-worsened and patient presented to ED at OSH, no beds available at OSH and transferred to [facility] for admission. Currently on clindamycin. Morphine prior to arrival helped the pain, described as severe and non-radiating. REVIEW OF SYSTEMS Negative except as reported above PAST HISTORY Pertinent Past History: etoh, copd, sinusitis Pertinent Family History: No family history on file. Pertinent Social History: tobacco etoh PHYSICAL EXAM BP 149/55 Pulse 85 Temp 98.2 ???F (36.8 ???C) (Oral) Resp 16 SpO2 95% Exam: Constitutional: Nursing triage notes reviewed, Vital signs reviewed, Alert, Awake, and uncomfortable, non-toxic HENT: Erythema/edema R eye, pain w/EOM, EOMI intact, pupils 3->2 equal, direct photophobia no consensual photohobia, marked scleral injection, +conjunctivitis no temporal tenderness Eyes: as above Neck: Supple and No nuchal rigidity Lung: Clear to auscultation, No wheezing, No rales, and No respiratory distress Cardiac: Regular rate and rhythm and No murmurs Neuro: Alert normally oriented and Normal speech Skin: Warm and Dry Psych: Cooperative MEDICAL DECISION MAKING and ED COURSE Nursing triage and assessment notes reviewed and incorporated. Review of External (Non- ED) Notes: [facility] reviewed and show Intake notes reviewed 57 y/o non-diabetic, h/o copd, prev. etoh with pancreatitis. Sent from ophthalmology clinic- R eye concerns for orbital cellulitis. No proptosis or entrapment. 20/40 L, 20/50 R. Ophthalmology wants patient at tertiary center in case abscess forms. Second dose of clindamycin given. Wbc 13.9, elevated inflammatory markers. Esr 75, crp 42, 4 doses of pain medicine for comfort. Last ct at 1900 shows no abscess, orbital cellulitis and preseptal cellulitis finding, extensive conjunctivitis. Sclera looks ok in R eye. OSH OP visit for orbital cellulitis ([facility]) yesterday; documentation unavailable to review History of COPD, HTN, alcohol abuse Transfer notes reviewed Patient seen [address] at [facility], started on azithromycin OSH imaging reviewed: CT orbit 10/19/2022 R preseptal cellulitis, extensive conjuntivitis, enhancement of R lacrimal gland consistent with dacryoadenitis, soft tissue thickening and edema long anterior extraconal R orbit consistent with orbital cellulitis, no organized fluid collection or abscess noted CBC WBC 13.9ESR 75 CRP 42 Allergies to PCN (hives) Given clindamycin Management Decisions: CT considered but not performed due to performed prior to arrival Independent Test Interpretation: Lab studies personally interpreted Industrial Engineering Analyst - ophthalmology - send to clinic, medical workup, consider orbital biopsy ENT - medical eval and hold biopsy for now Course: ED Course as of 10/20/22 1642 Mon Oct 20, 2022 0913 BP: 149/55 [MH] 0913 Temperature: 98.2 ???F (36.8 ???C) [MH] 0913 Heart Rate: 85 [MH] 0913 SpO2: 95 % VS mild HTN afebrile no tachycardia tachypnea hypoxia [MH] 0914 VA 20/40 OD 25/50 OS per OSH [MH] 0944 Optho repaged [MH] 0954 Discussed with optho - agree with admission, send patient to eye clinic prior to admit [MH] 1044 Team 7 repaged [MH] 1048 Creatinine: 0.56 [MH] 1048 Chloride: 102 [MH] 1048 Carbon Dioxide: 28 Renal function wnl [MH] 1127 Team 7 paged [MH] [address] Bush, accepted pending final optho recs [] 1422 Discussed with team 7 not accepted due to need for orbital biopsy [] 1424 Discussed with ENT - will see patient if orbital biopsy is possible [] 1503 Discussed with ENT, Bx felt not necessary will see patient [] ED Course User Index [] Rick Vaughn MD Assessment AND Plan: 57 year old F transferred from OSH for 1 month of eye pain/swelling, found to have septal/preseptal cellulitis w/out abscess, currently on clindamycin. TACO MAKER labs with +WBC no shift. Pain treated with morphine/zofran. (more content not included)... Normal [facility] Influenza virus A and B and SARS-CoV-2 (COVID-19) Ag panel - Upper respiratory specimOrdered By: Dr. Dykes on 10-20-2022 SARS-CoV-2 (COVID-19) RNA KANDY+probe Ql (Resp) [facility] Progress Noteson 10-20-2022 Employment Interviewer Authentication Interface Message Text Pharmacokinetic Dosing Service - VANCOMYCIN Initial Dosing Note Name: Gracie Banuelos Age:[age] year old Gender: female Ht: Data Unavailable Wt: no weight Indication: Central Nervous System (PRESTIDIGITATOR) Desired Ranges: 15-20 Day of therapy: 1 Assessment and Recommendations: 10/20/22 [id number] - Day 1: Central Nervous System (PRESTIDIGITATOR); Renal function: stable; ; Maintenance dose: 20 mg/kg IV Q12H ; Level due:10/22/22 0600, Level not ordered. Maintenance dosing of vancomycin 1250 mg every 12 hours is recommended and has been ordered. A vancomycin level is due before the 4th dose. Pharmacy will post notes for trough levels upon return and for dose changes. The medication regimen has been updated per consult agreement procedures. Current Dose Active Vancomycin Orders (From admission, onward) None Lab Values: Creatinine Date Value Ref Range Status 10/20/2022 0.56 0.50 - 1.10 mg/dL Final No results found for: VANCTRNo results found for: VANCR Creatinine clearance cannot be calculated (Unknown ideal weight.) Culture(s): PENDING CHRISTIANE ROTHMAN, [facility] - Department of Pharmacy Services Normal [facility] Employment Interviewer Authentication Interface Message Text New consult from ED - new onset periocular swelling, redness for over a month, fluctuating - had been getting better on PO, but then worsened - no history of trauma or sinusitis - says eyelids infermittently swollen shut - localized throbbing headache, pain with EOM, kacie supraduction - presented to outside ED that did not have beds, sent to main campus for possible admission for orbital cellulitis - received one dose of clindamycin, apparently improving - PMH of COPD with recent exacerbation, ETOH hx of pancreatitis - Outside ED labs: WBC 13.9, ESR 75, CRP 42 - CT from OSH at 1900 on 10/19/22 not showing abscess Exam - VA 20/25-2 cc OD, 20/40-1 cc OS - IOP 14/12 - no APD - color plates full OU - EOM with pain, -2 infraduction, -1 supraduction OD - dane 15, 15 at 116 - boggy periorbital tissue with congested conjunvita - SLE exam otherwise unremarkable - DFE without evidence of optic neuropathy, retinal folds, vascular congestion 1. Periorbital/orbital swelling, OD - Ddx: NSOI, IgG4, orbital cellulitis, systemic inflammation (GPA, RA, SLE, Graves), orbital malignancy (less likely) - suspect most likely non-specific orbital inflammation given time course and CT from OSH without abscess or significant sinus disease; additionally, lateral rectus on right is grossly enlarged compared to the left - inflammatory markers elevated on recent labs - while infectious orbital cellulitis remains on differential, no apparent abscess to fit timeline or appearance on exam Recommendations: - needs MRI orbit with and without contrast - continue antibiotic coverage, consider ID consultation - would strongly suggest orbital biopsy if possible with ENT as there is high suspicion for inflammatory cause, in which case IV steroids would be necessary - Ancillary testing: - ARUNA - CXR - ANCA - IgG4 - Thyroid labs (TSH/T3/T4) Opthalmology will continue to follow for signs of optic neuropathy Please page with worsening vision, changing pupil exam, worsening swelling/proptosis on exam Jeffery Jin MD Ophthalmology Resident PGY-[address] Truong Voss [facility] Telephone Encounteron 2022 Employment Interviewer Authentication Interface Message Text I was called by [facility] regarding a transfer from [place] ED. That facility is requesting transfer because patient needs ophthalmology evaluation. The clinical history is 57 yo female with PMH of HTN, HLD, COPD, GERD, pancreatitis, prior alcohol abuse who presents with right eye vision loss and pain. Patient has been following with ophthalmology for preseptal cellulitis with new concern for transformation to orbital cellulitis. Patient endorses vision changes and pain with eye movements. CT imaging in ED with signs of orbital cellulitis, no abscess seen. Patient started on clindamycin due to penicillin allergy. WBC 13, ESR/CRP elevated. Discussed with provider at [place] ED, advised they should discuss case with ophthalmology as patient may benefit from ED to ED transfer rather than direct admission to medicine for earlier ophthalmology evaluation. Patient is not accepted to medicine at this time, 5:18 AM 10/20/22. Jeffy Garner MD Normal [facility] Absolute lymphocyte countOrd ered By: Dr. Dykes on 10-19-2022 Lymphocytes Auto (Unsp spec) [#/Vol] 3.28 10*3/uL 0.83-4.51 [facility] Basophil percentageOrdered B y: Dr. Dykes on 10-19-2022 Basophils/100 WBC (Bld) 0.8 % 0-1 [facility] Chloride [Moles/Vol] 107 mmol/L 98-[address] [facility] Eosinophils/100 WBC (Bld) 4.4 % 0-5 [facility] Glucose [Mass/Vol] 97 mg/dL 74-106 [facility] Neutrophils (Bld) [#/Vol] 8.8 10*3/uL 2.0-7.7 [facility] Neutrophils/100 WBC (Bld) 63.4 % 47-70 [facility] Potassium [Moles/Vol] 3.8 mmol/L 3.5-5.1 [facility] Sodium [Moles/Vol] 137 mmol/L 136-145 [facility] WBC (Bld) [#/Vol] 13.9 10*3/uL 4.4-11.0 [facility] Blood erythrocytes count (nu mber/volume)Ordered By: Dr. Dykes on 10-19-2022 RBC (Bld) [#/Vol] 4.87 10*6/uL 4.2-5.4 [facility] Blood hemoglobin measurement (mass/volume)Ordered By: Dr. Dykes on 10-19-2022 Hemoglobin (Bld) [Mass/Vol] 13.6 g/dL 12.0-15.0 [facility] Blood lymphocytes/100 leukoc ytesOrdered By: Dr. Dykes on 10-19-2022 Lymphocytes/100 WBC (Bld) 23.6 % 19-41 [facility] Blood monocytes/100 leukocyt esOrdered By: Dr. Dykes on 10-19-2022 Monocytes/100 WBC (Bld) 7.1 % 0-10 [facility] Blood platelet mean volumeOr dered By: Dr. Dykes on 10-19-2022 Platelet mean volume (Bld) [Entitic vol] 9.6 fL 6.2-12.0 [facility] Determination of erythrocyte mean corpuscular volume (MCV)Ordered By: Dr. Dykes on 10-19-2022 MCV (RBC) [Entitic vol] 85.0 fL 81-99 [facility] Erythrocyte sedimentation ra teOrdered By: Dr. Dykes on 10-19-2022 ESR (Bld) [Velocity] 75 mm/h 0-[address] [facility] Hematocrit Auto (Bld) [Volum e fraction]Ordered By: Dr. Dykes on 10-19-2022 Hematocrit (Bld) [Volume fraction] 41.4 % 37-47 [facility] Influenza virus A and B and SARS-CoV-2 (COVID-19) Ag panel - Upper respiratory specimOrdered By: Dr. Dykes on 10-19-2022 SARS-CoV-2 (COVID-19) RNA KANDY+probe Ql (Resp) [facility] Laboratory - Chemistry and C hemistry - challengeOrdered By: Dr. Dykes on 10-19-2022 CO2 [Moles/Vol] 26.0 mmol/L 21.0-32.0 [facility] Urea nitrogen/Creatinine [Mass ratio] 11.3 mg/mg 10-20 [facility] - Hematology and Cell countsOrdered By: Dr. Dykes on 10-19-2022 Erythrocyte distribution width (RBC) [Entitic vol] 41.5 fL 35.1-43.9 [facility] Erythrocyte distribution width (RBC) [Ratio] 13.2 % 11.6-14.6 [facility] Immature granulocytes/100 WBC (Bld) 0.700 % 0.0-0.9 [facility] Comment on above: IG% - Immature Granu locytes (promyelocytes, myelocytes and metamyelocytes) > 1% indicates that a LEFT SHIFT is Present. MCH (RBC) [Entitic mass] 27.9 pg 27.0-32.0 [facility] Nucleated RBC/100 WBC (Bld) [Ratio] 0 % 0-5 [facility] MCHC Auto (RBC) [Mass/Vol]Or dered By: Dr. Dykes on 10-19-2022 MCHC (RBC) [Mass/Vol] 32.9 g/dL 32-36 [facility] No Panel InformationOrdered By: Dr. Dykes on 10-19-2022 Estimated Creatinine Clearance Calc 80.82 ml/min [facility] Estimated GFR (MDRD) Amer 127 mL/min >60 [facility] Comment on above: GFR Calc Estimated GFR (MDRD) Non-Af Amer 105 mL/min >60 [facility] Comment on above: Non- GFR Calc Platelets bldOrdered By: Dr. Dykes on 10-19-2022 Platelets (Bld) [#/Vol] 384 10*3/uL 150-450 [facility] Serum or plasma C reactive p rotein measurement (mass/volume)Ordered By: Dr. Dykes on 10-19-2022 CRP [Mass/Vol] 42.60 mg/L 0.0-3.0 [facility] Comment on above: C-Reactive Protein ( CRP) provides useful information for thediagnosis, therapy and monitoring of inflammatory processesand associated diseases. For the evaluation of Relative Riskfor Cardiovascular Disease, a High Sensitivity CRP (HSCRP)should be ordered. Serum or plasma calcium esthela urement (mass/volume)Ordered By: Dr. Dykes on 10-19-2022 Calcium [Mass/Vol] 9.5 mg/dL 8.5-10.1 [facility] Serum or plasma creatinine m easurement (mass/volume)Ordered By: Dr. Dykes on 10-19-2022 Creatinine [Mass/Vol] 0.62 mg/dL 0.55-1.02 [facility] Comment on above: The validity of the calculated GFR & GFRAA in patients over 70 years has not been determined. Clinical correlation is essential. Serum or plasma urea nitroge n measurement (mass/volume)Ordered By: Dr. Dykes on 10-19-2022 Urea nitrogen [Mass/Vol] 7 mg/dL 7-18 [facility] Thin prep Papanicolaou smear with manual screeningOrdered By: Dr. Dykes on 10-19-2022 Thin prep Papanicolaou smear with manual screening 4 5-15 [facility] Laboratory - Microbiology an d Antimicrobial susceptibilityOrdered By: Dr. Hadny on 08-28-2022 Bacteria identified Cx Nom (Bld) No growth in 5 days. [facility] Culture, urineOrdered By: Dr Max Handy on 08-24-2022 Bacteria identified Cx Nom (U) Positive [facility] Absolute lymphocyte countOrd ered By: Dr. Handy on 08-22-2022 Lymphocytes Auto (Unsp spec) [#/Vol] 2.04 10*3/uL 0.83-4.51 [facility] Basophil percentageOrdered B y: Dr. Handy on 08-22-2022 Basophil percentage 0 SEEN /hpf 0-[address] [facility] Basophils/100 WBC (Bld) 0.3 % 0-1 [facility] Bilirubin [Mass/Vol] 0.20 mg/dL 0.20-1.[address] [facility] Comment on above: For patients on eltr ombopag therapy, use of Dimension [place] TBIL is not recommended. Chloride [Moles/Vol] 95 mmol/L 98-[address] [facility] Eosinophils/100 WBC (Bld) 0.6 % 0-5 [facility] Glucose [Mass/Vol] 115 mg/dL 74-106 [facility] Comment on above: Fasting Glucose resu lt from 100 to 125 mg/dL suggests IMPAIRED HOMEOSTASIS per A.D.A. criteria. Lactate [Moles/Vol] 0.7 mmol/L 0.4-2.0 [facility] Neutrophils (Bld) [#/Vol] 6.4 10*3/uL 2.0-7.7 [facility] Neutrophils/100 WBC (Bld) 66.3 % 47-70 [facility] Potassium [Moles/Vol] 3.9 mmol/L 3.5-5.1 [facility] Protein [Mass/Vol] 7.5 g/dL 6.4-8.2 [facility] Sodium [Moles/Vol] 131 mmol/L 136-145 [facility] WBC (Bld) [#/Vol] 9.6 10*3/uL 4.4-11.0 [facility] Bilirubin Test strip Ql (U)O rdered By: Dr. Handy on 08-22-2022 Bilirubin Ql (U) Negative Negative [facility] Blood erythrocytes count (nu mber/volume)Ordered By: Dr. Handy on 08-22-2022 RBC (Bld) [#/Vol] 5.09 10*6/uL 4.2-5.4 [facility] Blood hemoglobin measurement (mass/volume)Ordered By: Dr. Handy on 08-22-2022 Hemoglobin (Bld) [Mass/Vol] 15.2 g/dL 12.0-15.0 [facility] Blood lymphocytes/100 leukoc ytesOrdered By: Dr. Handy on 08-22-2022 Lymphocytes/100 WBC (Bld) 21.2 % 19-41 [facility] Blood monocytes/100 leukocyt esOrdered By: Dr. Handy on 08-22-2022 Monocytes/100 WBC (Bld) 11.3 % 0-10 [facility] Blood platelet mean volumeOr dered By: Dr. Handy on 08-22-2022 Platelet mean volume (Bld) [Entitic vol] 10.8 fL 6.2-12.0 [facility] Determination of erythrocyte mean corpuscular volume (MCV)Ordered By: Dr. Handy on 08-22-2022 MCV (RBC) [Entitic vol] 86.1 fL 81-99 [facility] Hematocrit Auto (Bld) [Volum e fraction]Ordered By: Dr. Handy on 08-22-2022 Hematocrit (Bld) [Volume fraction] 43.8 % 37-47 [facility] INR in Blood by Coagulation assayOrdered By: Dr. Handy on 08-22-2022 INR Coag (Bld) [Relative time] 0.9 {INR} [facility] Influenza virus A and B and SARS-CoV-2 (COVID-19) Ag panel - Upper respiratory specimOrdered By: Dr. Handy on 08-22-2022 SARS-CoV-2 (COVID-19) RNA KANDY+probe Ql (Resp) [facility] Ketones Test strip Ql (U)Ord ered By: Dr. Handy on 08-22-2022 Ketones Ql (U) Negative Negative [facility] Laboratory - Chemistry and C hemistry - challengeOrdered By: Dr. Handy on 08-22-2022 ALP [Catalytic activity/Vol] 108 U/L 45-117 [facility] ALT [Catalytic activity/Vol] 21 U/L 13-56 [facility] CO2 [Moles/Vol] 30.0 mmol/L 21.0-32.0 [facility] Globulin (S) [Mass/Vol] 4.1 g/dL 2.2-4.2 [facility] Urea nitrogen/Creatinine [Mass ratio] 15.0 mg/mg 10-20 [facility] Laboratory - CoagulationOrde red By: Dr. Handy on 08-22-2022 aPTT Coag (Bld) [Time] 28.9 s 24.1-36.2 [facility] PT Coag (PPP) [Time] 12.3 s 11.7-14.[address] [facility] Laboratory - Hematology and Cell countsOrdered By: Dr. Handy on 08-22-2022 Erythrocyte distribution width (RBC) [Entitic vol] 42.4 fL 35.1-43.9 [facility] Erythrocyte distribution width (RBC) [Ratio] 13.4 % 11.6-14.6 [facility] Immature granulocytes/100 WBC (Bld) 0.300 % 0.0-0.9 [facility] Comment on above: IG% - Immature Granu locytes (promyelocytes, myelocytes and metamyelocytes) > 1% indicates that a LEFT SHIFT is Present. MCH (RBC) [Entitic mass] 29.9 pg 27.0-32.0 [facility] Nucleated RBC/100 WBC (Bld) [Ratio] 0 % 0-5 [facility] MCHC Auto (RBC) [Mass/Vol]Or dered By: Dr. Handy on 08-22-2022 MCHC (RBC) [Mass/Vol] 34.7 g/dL 32-36 [facility] Mucus LM Ql (Urine sed)Order ed By: Dr. Handy on 08-22-2022 Mucus Ql (Urine sed) 0 SEEN /hpf [facility] Nitrite Test strip Ql (U)Ord ered By: Dr. Handy on 08-22-2022 Nitrite Ql (U) Negative Negative [facility] No Panel InformationOrdered By: Dr. Handy on 08-22-2022 Estimated Creatinine Clearance Calc 83.51 ml/min [facility] Estimated GFR (MDRD) Amer 132 mL/min >60 [facility] Comment on above: GFR Calc Estimated GFR (MDRD) Non-Af Amer 109 mL/min >60 [facility] Comment on above: Non- GFR Calc Troponin I High Sensitivity 25 pg/mL 3.0-54.0 [facility] Comment on above: Please Note: [place] t Units and Gender Specific Reference Ranges. For more information see Policy Stat Procedure [place] High Sensitivity Troponin (TNIH) and attachments. Platelets bldOrdered By: Dr. Handy on 08-22-2022 Platelets (Bld) [#/Vol] 226 10*3/uL 150-450 [facility] Protein Test strip Ql (U)Ord ered By: Dr. Handy on 08-22-2022 Protein Ql (U) Negative Negative [facility] RSV Ag EIAOrdered By: Dr. Kam lou on 08-22-2022 RSV Ag Immune stain Ql (Tiss) [facility] Serum or plasma albumin esthela urement (mass/volume)Ordered By: Dr. Handy on 08-22-2022 Albumin [Mass/Vol] 3.4 g/dL 3.2-5.0 [facility] Serum or plasma albumin/glob ulin mass ratioOrdered By: Dr. Handy on 08-22-2022 Albumin/Globulin [Mass ratio] 0.8 {ratio} 0.9-2.4 [facility] Serum or plasma calcium esthela urement (mass/volume)Ordered By: Dr. Handy on 08-22-2022 Calcium [Mass/Vol] 8.7 mg/dL 8.5-10.1 [facility] Serum or plasma creatinine m easurement (mass/volume)Ordered By: Dr. Handy on 08-22-2022 Creatinine [Mass/Vol] 0.60 mg/dL 0.55-1.02 [facility] Comment on above: The validity of the calculated GFR & GFRAA in patients over 70 years has not been determined. Clinical correlation is essential. Serum or plasma urea nitroge n measurement (mass/volume)Ordered By: Dr. Handy on 08-22-2022 Urea nitrogen [Mass/Vol] 9 mg/dL 7-18 [facility] Squamous epithelial cells de tection in urine sediment by light microscopyOrdered By: Dr. Handy on 08-22-2022 Epithelial cells.squamous LM Ql (Urine sed) 0-5 SEEN /hpf 5-10 [facility] Thin prep Papanicolaou smear with manual screeningOrdered By: Dr. Handy on 08-22-2022 Thin prep Papanicolaou smear with manual screening 17 U/L 15-37 [facility] Thin prep Papanicolaou smear with manual screening 6 5-15 [facility] Urine blood detectionOrdered By: Dr. Handy on 08-22-2022 RBC Ql (U) Negative Negative [facility] RBC Ql (U) 0 SEEN /hpf 0-5 [facility] Urine clarityOrdered By: Dr. Handy on 08-22-2022 Clarity (U) Sl. Cloudy Clear [facility] Urine color determinationOrd ered By: Dr. Handy on 08-22-2022 Color (U) Yellow Yellow [facility] Urine glucose detectionOrder ed By: Dr. Handy on 08-22-2022 Glucose Ql (U) Normal mg/dl Normal [facility] Urine leukocyte esterase det ection by dipstickOrdered By: Dr. Handy on 08-22-2022 Leukocyte esterase Test strip Ql (U) Negative Negative [facility] Urine pHOrdered By: Dr. Rashad lay on 08-22-2022 pH (U) 6.5 [pH] 5.0 - 8.0 [facility] Urine sediment bacteria coun t by microscopy (number/high power field)Ordered By: Dr. Handy on 08-22-2022 Bacteria LM.HPF (Urine sed) [#/Area] RARE /hpf None Seen [facility] Urine specific gravity measu rementOrdered By: Dr. Handy on 08-22-2022 Specific gravity (U) [Rel density] 1.005 1.002-1.030 [facility] Urobilinogen Auto test strip Ql (U)Ordered By: Dr. Handy on 08-22-2022 Urobilinogen Ql (U) Normal mg/dl Normal [facility] Absolute lymphocyte counton 03-03-2022 Lymphocytes Auto (Unsp spec) [#/Vol] 2.54 10*3/uL 0.83-4.51 [facility] Work Phone: Basophil percentageon 2021 Basophils/100 WBC (Bld) 0.8 % 0-1 [facility] Work Phone: Chloride [Moles/Vol] 107 mmol/L 98-[address] [facility] Work Phone: Eosinophils/100 WBC (Bld) 2.4 % 0-5 [facility] Work Phone: Glucose [Mass/Vol] 149 mg/dL 74-106 [facility] Work Phone: Comment on above: Fasting Glucose resu lt greater than or equal to 126 mg/dL suggests DIABETES MELLITUS per A.D.A. criteria. Neutrophils (Bld) [#/Vol] 7.8 10*3/uL 2.0-7.7 [facility] Work Phone: Neutrophils/100 WBC (Bld) 66.0 % 47-70 [facility] Work Phone: Potassium [Moles/Vol] 3.6 mmol/L 3.5-5.1 [facility] Work Phone: Sodium [Moles/Vol] 139 mmol/L 136-145 [facility] Work Phone: WBC (Bld) [#/Vol] 11.8 10*3/uL 4.4-11.0 [facility] Work Phone: Blood erythrocytes count (nu mber/volume)on 03-03-2022 RBC (Bld) [#/Vol] 4.79 10*6/uL 4.2-5.4 [facility] Work Phone: Blood hemoglobin measurement (mass/volume)on 03-03-2022 Hemoglobin (Bld) [Mass/Vol] 13.4 g/dL 12.0-15.0 [facility] Work Phone: Blood lymphocytes/100 leukoc yteson 03-03-2022 Lymphocytes/100 WBC (Bld) 21.6 % 19-41 [facility] Work Phone: [phone] Blood monocytes/100 leukocyt eson 03-03-2022 Monocytes/100 WBC (Bld) 8.4 % 0-10 [facility] Work Phone: Blood platelet mean volumeon 03-03-2022 Platelet mean volume (Bld) [Entitic vol] 10.4 fL 6.2-12.0 [facility] Work Phone: [phone] Determination of erythrocyte mean corpuscular volume (MCV)on 03-03-2022 MCV (RBC) [Entitic vol] 89.4 fL 81-99 [facility] Work Phone: [phone] Hematocrit Auto (Bld) [Volum e fraction]on 03-03-2022 Hematocrit (Bld) [Volume fraction] 42.8 % 37-47 [facility] Work Phone: [phone] Laboratory - Chemistry and C hemistry - challengeon 03-03-2022 CO2 [Moles/Vol] 27.0 mmol/L 21.0-32.0 [facility] Work Phone: [phone] Urea nitrogen/Creatinine [Mass ratio] 6.7 mg/mg 10-20 [facility] Work Phone: [phone] Laboratory - Hematology and Cell countson 03-03-2022 Erythrocyte distribution width (RBC) [Entitic vol] 45.1 fL 35.1-43.9 [facility] Work Phone: [phone] Erythrocyte distribution width (RBC) [Ratio] 13.8 % 11.6-14.6 [facility] Work Phone: [phone] Immature granulocytes/100 WBC (Bld) 0.800 % 0.0-0.9 [facility] Work Phone: [phone] Comment on above: IG% - Immature Granu locytes (promyelocytes, myelocytes and metamyelocytes) > 1% indicates that a LEFT SHIFT is Present. MCH (RBC) [Entitic mass] 28.0 pg 27.0-32.0 [facility] Work Phone: [phone] Nucleated RBC/100 WBC (Bld) [Ratio] 0 % 0-5 [facility] Work Phone: [phone] MCHC Auto (RBC) [Mass/Vol]on 03-03-2022 MCHC (RBC) [Mass/Vol] 31.3 g/dL 32-36 [facility] Work Phone: No Panel Informationon 03-03 Estimated Creatinine Clearance Calc 84.54 ml/min [facility] Work Phone: [phone] Estimated GFR (MDRD) Amer 131 mL/min >60 [facility] Work Phone: [phone] Comment on above: GFR Calc Estimated GFR (MDRD) Non-Af Amer 109 mL/min >60 [facility] Work Phone: [phone] Comment on above: Non- GFR Calc SARS-CoV-2 & FLU Antigen (Rapid) [facility] Work Phone: [phone] Troponin I High Sensitivity 14 pg/mL 3.0-54.0 [facility] Work Phone: [phone] Comment on above: Please Note: [place] t Units and Gender Specific Reference Ranges. For more information see Policy Stat Procedure [place] High Sensitivity Troponin (TNIH) and attachments. Platelets bldon 03-03-2022 Platelets (Bld) [#/Vol] 251 10*3/uL 150-450 [facility] Work Phone: [phone] Serum or plasma calcium esthela urement (mass/volume)on 03-03-2022 Calcium [Mass/Vol] 9.0 mg/dL 8.5-10.1 [facility] Work Phone: [phone] Serum or plasma creatinine m easurement (mass/volume)on 03-03-2022 Creatinine [Mass/Vol] 0.60 mg/dL 0.55-1.02 [facility] Work Phone: Comment on above: The validity of the calculated GFR & GFRAA in patients over 70 years has not been determined. Clinical correlation is essential. Serum or plasma urea nitroge n measurement (mass/volume)on 03-03-2022 Urea nitrogen [Mass/Vol] 4 mg/dL 04-14 [facility] Work Phone: Thin prep Papanicolaou smear with manual screeningon 03-03-2022 Thin prep Papanicolaou smear with manual screening 02-09 [facility] Work Phone: ANES Pily 12-05-2019 ANES POST HNO ID: [id number] Author: Mark Saab Service: Anesthesiology Author Type: Physician Type: Anesthesia PostOp Filed: 12/05/2019 1:36 PM Note Text: POST ANESTHESIA EVALUATION NOTE SERVICE DATE: 12/05/2019 SERVICE TIME: 1:36 PM : 1965 Vitals: 12/05/19 0654 Temp: 36 ?C (96.8 ?F) 12/05/19 0654 12/05/19 0852 12/05/19 0904 12/05/19 0914 BP: 115/72 96/67 96/83 116/94 12/05/19 0654 12/05/19 0852 12/05/19 0904 12/05/19 0914 Pulse: 86 88 89 92 12/05/19 0654 12/05/19 0852 12/05/19 0904 12/05/19 0914 Resp: 18 16 16 16 12/05/19 0654 12/05/19 0852 12/05/19 0904 12/05/19 0914 SpO2: 98% 94% 94% 96% Validated Vital Signs: Yes POST ANES STATUS: No apparent anesthetic complications. The patient is appropriately hydrated with stable respiratory and cardiovascular status. Patient has safe and adequate airway control. The patient has appropriate pain relief and no significant post operative nausea or vomiting. The patient has achieved baseline mental status. Intra-Operative Events: No Significant Anesthesia Events Further assessment by Anesthesia Service: None Other Remarks: SIGNATURE: Mark Saab MD PATIENT NAME: Gracie Banuelos DATE: December 05, 2019 TIME: 1:36 PM PAGER/CONTACT #: [phone] [facility] ANES PREOPon 12-05-2019 ANES PREOP HNO ID: [id number] Author: Mark Saab Service: Anesthesiology Author Type: Physician Type: Anesthesia PreOp Filed: 12/05/2019 7:50 AM Note Text: ANESTHESIOLOGY DAY OF SURGERY NOTE SERVICE DATE: 12/05/2019 SERVICE TIME: 7:47 AM : 1965 Procedure(s) (LRB): ENDOSCOPY UPPER GI W/ ENDOSCOPIC ULTRASOUND EXAMINATION, (Left) Surgeon(s): Claudia Odonnell Estimated body mass index is 19.66 kg/m? as calculated from the following: Height as of 11/09/19: 160 cm (5' 3). Weight as of 11/09/19: 50.3 kg (111 lb). Most recent hematocrit and potassium results: Hematocrit 44.0 07/05/2019 Potassium 4.4 07/05/2019 ANES DOS/PREOP NOTE: Vitals: 12/05/19 0654 BP: 115/72 Pulse: 86 Resp: 18 Temp: 36 ?C (96.8 ?F) SpO2: 98% ACTIVE PROBLEM LIST Tobacco Use Disorder Anxiety State Hyperlipidemia Essential Hypertension, Benign Gerd (Gastroesophageal Reflux Disease) Chronic Obstructive Pulmonary Disease (Hcc) Lumbar Disc Disease With Radiculopathy Postmenopausal Bleeding Ovarian Cyst, Right Alcoholic Hepatitis Without Ascites Urine, Incontinence, Stress Female Hpv Test Positive Pulmonary Emphysema (Hcc) Irritable Bowel Syndrome With Both Constipation and Diarrhea Alcohol Use Disorder, Moderate, Dependence (Hcc) Ddd (Degenerative Disc Disease), Cervical Severe Protein-Calorie Malnutrition (Hcc) Chronic Recurrent Pancreatitis (Hcc) Reactive Depression Alcohol-Induced Chronic Pancreatitis (Hcc) PAST MEDICAL HISTORY Diagnosis Date - Acute exacerbation of chronic obstructive airways disease (HCC) - Alcohol dependence in remission (HCC) 07/10/2015 - Alcohol use disorder 08/27/2017 - Alcoholic hepatitis 05/18/2012 - Alcoholic liver disease (HCC) 11/16/2013 - Anemia - Anxiety with depression - COPD (chronic obstructive pulmonary disease) (HCC) 05/25/2012 - DDD (degenerative disc disease), cervical 09/03/2018 - Diaphragmatic hernia without mention of obstruction or gangrene - Diarrhea - GERD (gastroesophageal reflux disease) - HLD (hyperlipidemia) - HTN (hypertension) - Human papillomavirus in conditions classified elsewhere and of unspecified site - Irritable bowel syndrome with both constipation and diarrhea 08/27/2017 - Lumbar disc disease with radiculopathy 06/18/2012 - Other and unspecified alcohol dependence, unspecified drinking behavior - Ovarian cyst, right 12/27/2012 - Pancreatitis 03/08 - Pancreatitis chronic 05/26/2011 - Pneumonia of both lungs due to infectious organism 2017 - Stage 2 moderate COPD by GOLD classification (HCC) 2018 - Tobacco use - Unspecified hemorrhoids without mention of complication - Urine, incontinence, stress female 11/24/2014 PAST SURGICAL HISTORY Procedure Laterality Date - APPENDECTOMY at age 14 - COLONOSCOPY 04/15/[address], [address] Paul Perez. - COLONOSCOPY 01/23/2015 2-Tubular adenomas. Dr. Víctor Lopez. - COLONOSCOPY 07/29/2017 normal - EGD 10/03/[address] Paul Perez. - EGD 07/29/2017 mild gastritis, otherwise normal FAMILY HISTORY Problem Relation Age of Onset - Diabetes Mother - Hypertension Mother - Rheumatologic disease Mother - other (lung cancer) Mother - Hypertension Brother - Cervical Cancer Sister X 2 Social History: Social History Tobacco Use - Smoking status: Current Every Day Smoker Packs/day: 0.50 Years: 30.00 Pack years: 15.00 Types: Cigarettes - Smokeless tobacco: Never Used Substance Use Topics - Alcohol use: Not Currently Comment: Alcoholic - January 2019- last drink - Drug use: Yes Types: Marijuana Comment: rarely- last time used was Oct 2019 No current facility-administered medications on file prior to encounter. Current Outpatient Medications on File Prior to Encounter Medication Sig - gpeave-qfujayjm-zofbmjv (CREON 24) 24,000-76,000 -120,000 unit cpDR Take 3 capsules by mouth three times daily with meals. - pantoprazole DR (PROTONIX) 40 mg tablet Take 1 tablet by mouth once daily. - ondansetron (ZOFRAN) 4 mg tablet Take 1 tablet by mouth every 8 hours as needed for Nausea/Vomiting. - loperamide (IMODIUM) 2 mg cap(s) Take 1 capsule by mouth four times daily as needed for Diarrhea. - FOLIC ACID ORAL Take 1 mg by mouth once daily. - vitamin B complex (B COMPLEX 1 ORAL) Take by mouth once daily. - ibuprofen (MOTRIN) 400 mg tablet EVERY 6 HOURS NEEDED - mirtazapine (REMERON) 15 mg tablet Take 1 tablet by mouth daily at bedtime. - vitamin A and D ointment Apply 1 application to affected area as needed. - Blood Pressure Monitor kit 1 Kit as directed. Needs Pediatric Cuff with automatic monitor (patient weighs 90 pounds) Use as directed. Dx: Essential Hypertension I.10 - hydrOXYzine pamoate (VISTARIL) 50 mg capsule Take 1 capsule by mouth three times daily as needed. for anxiety - vilazodone (VIIBRYD) 40 mg Take 1 tablet by mouth daily with breakfast. - albuterol (PROVENTIL) 2.5 mg /3 mL (0.083 %) nebulizer solution Use 3 mL via nebulizer one time only for 1 dose. Use over 5-15minutes. - albuterol HFA (VENTOLIN HFA) 90 mcg/actuation inhaler Inhale 2 Puffs as instructed four times daily as needed. - VITAMIN D-3 2,000 unit cap TAKE 1 CAPSULE BY MOUTH DAILY - OXYGEN, HOME THERAPY, Inhale as instructed as directed. Patient is on 2-3 liters - tiotropium-olodaterol (STIOLTO RESPIMAT) 2.5-2.5 mcg/actuation mist Inhale 2 Inhalation as instructed once daily. - promethazine (PHENERGAN) 25 mg tablet Take 1 tablet by mouth every 8 hours as needed for Nausea/Vomiting. - ketorolac (TORADOL) 10 mg tablet Take 1 tablet by mouth every 6 hours as needed. - Protein (ENSURE HIGH PROTEIN) powd Take 250 kcal by mouth twice daily. - Cholecalciferol, Vitamin D3, (D3-2000) 2,000 unit cap Take 1 capsule by mouth once daily. - triamcinolone (KENALOG) 0.025 % cream Apply 1 application to affected area twice daily. (Patient taking differently: Apply 1 application to affected area twice daily as needed. ) - pseudoephedrine-guaiFEN esin (MUCINEX D) 60-600 mg per tablet Take 1 tablet by mouth every 12 hours as needed for Cold/Allergy Symptoms. (Patient not taking: Reported on 04/28/2019 ) - benzonatate (TESSALON PERLES) 100 mg capsule Take 1 capsule by mouth three times daily as needed for Cough. (Patient not taking: Reported on 04/28/2019 ) - MELATONIN ORAL Take by mouth once daily. - COMPOUNDED PRESCRIPTION Pulse Oximetry - Pramoxine (PROCTOFOAM) 1 % foam 1 application by RECTAL route every 2 hours as needed. - COMPOUNDED PRESCRIPTION nebulizer supplies (tubing) Current Facility-Administered Medications Medication Dose Route Frequency Provider Last Rate Last Dose - lactated ringers infusion 5-30 mL/hr INTRAVENOUS CONTINUOUS Juan E Bucur 30 mL/hr at 12/05/19726 30 mL/hr at 12/05/19726 Allergies: ALLERGIES Allergen Reactions - Ativan [Lorazepam] Other: See Comments cross reaction with alcohol addication - Penicillins Other: See Comments hives - Valium [Diazepam] Other: See Comments cross reaction with alcohol addiction - Xanax [Alprazolam] Other: See Comments cross reaction with alcohol addiction DOS EXAM: Adequate NPO Status: Yes Anesthetic Risks, Benefits, Alternatives, Personnel and Consent Discussed: Yes Patient agrees to proceed: Yes Previous Anesthesia: No history of adverse event Airway Assessment: MP 2; Neck ROM: Full ROM without neurologic symptoms; Airway Evaluation: No significant abnormalities Symptoms of Sleep Apnea: Hypertension and Age over 50 (54 year old) Dentition: Dentures: both Additional Physical Exam: Lungs: Patient health status unchanged since recent history and physical. See history and physical for exam findings. Cardiac: Patient health status unchanged since recent history and physical. See history and physical for exam findings. Additional Pertinent Findings: N/A Blood Products: Not anticipated for this procedure Anesthetic Plan: MAC with general as back up Anesthetic Monitoring: Standard ASA Monitors Pain Management Plan: Parenteral or Oral ASA Class: 3 Other Medical Problems: hx etoh abuse. Sober 10 months per patient, pancreatitis, copd , smoker, oxygen prn Chronic Beta [place] medication administered within 24 hours: N/A I have interviewed and examined the patient. I have reviewed the medical record and/or the pre-anesthesia evaluation, pertinent labs, and test results. Significant changes in the patient's condition since the History and Physical, not otherwise documented in primary service progress notes: No This contains updated information obtained within 48 hours of Surgery/Procedure. SIGNATURE: Mark Saab MD PATIENT NAME: Gracie Banuelos DATE: December 05, 2019 TIME: 7:47 AM CSN: [id number] Normal [facility] Glucose Meteron 12-05-2019 Glucose [Mass/Vol] 107 mg/dL High 70-99 [facility] Comment on above: Result Comment: SARWAT Sloan OTIFIED Performed By: #### G LMET #### [facility] [address] [address] OPERATIVE NOon 12-05-2019 OPERATIVE NO HNO ID: [id number] Author: Claudia Odonnell Service: Gastroenterology Author Type: Physician Type: Operative Report Filed: 12/05/2019 9:08 AM Note Text: OPERATIVE/PROCEDURE REPORT LOG ID: [id number] Surgery/Procedure Date: 12/05/2019 Incision/Procedure Start Time: 8:27 AM Incision Close/Procedure End Time: 8:45 AM Surgeon(s)/Proceduralis t(s) and Motor Coach Tour Operator(s): Surgeon(s) and Role: * Claudia Odonnell - Primary No Additional Staff Procedure(s): Endoscopic Ultrasound (EUS) Esophagogastroduodenosc opy (EGD) and biopsy Anesthesia: Monitored Anesthesia Care Brief History: 54/F with h/o- alcohol abuse in past with c/o- upper abdominal pain and CT-scan shwoing features of chronic pancreatitis for EUS exam Procedure Details: The patient was placed in the left lateral decubitus position. A bite block was placed and medications administered as above. The Olympus gastroscope was used to intubate the oropharynx and esophagus with ease. We proceeded down to the second part of the duodenum. The duodenal mucosa and bulb appeared normal. We then withdrew into the stomach and visualized a normal antrum and body. Biopsies were taken to rule out H. Pylori. Retroflexion was performed and this showed a normal fundus and cardia. Small hiatal hernia seen. The squamocolumnar junction, GE junction and esophagus appeared normal. The scope was then withdrawn and the patient tolerated the procedure well. With the patient in the same position, the Olympus radial echoendoscope was then used to intubate the oropharynx and esophagus with ease. We proceeded down to the posterior aspect of the gastric body. Esophagus and stomach- normal CBD and GB- normal Pancreas- abnormal, features of chronic pancreatitis Liver- normal Left kidney and adrenal- normal The aorta and celiac artery takeoff were visualized. The splenic vasculature appeared normal. The pancreatic parenchyma was visualized and had features of chronic pancreatitis- extensive honey-combing, . The pancreatic duct in the body was dilated and measured 0.4 cm. There is no evidence of cystic structures, masses. The pancreatic parenchyma was scanned down to the tail and showed features of chronic pancreatitis- lobularity, honey-combing, irregular PD. We then advanced the scope to the duodenal bulb. The CBD had normal caliber, measuring 0.5 cm with no evidence of intraductal stones. A normal stack sign was seen with normal portal vein, pancreatic duct and CBD. PD in head was 0.44 cm in diameter and a stone was seen in the the duct. The scope was advanced to the second part of the duodenum. The ampullary view appeared normal. The uncinate process of the pancreas also showed features of chronic pancreatitis. PV, SMA, aorta and SMV were normal. The scope was then withdrawn and the patient tolerated the procedure well. Pre-Op/Pre-Procedure Diagnosis: Suspected chronic pancreatitis Post-Op/Post-Procedure Diagnosis: EGD- mild gastritis- biopsy obtained EUS- Chronic pancreatitis with PD stone Normal CBD Specimens: see above EBL: None Complications: None Recommendations: Monitor for GI bleeding, acute pancreatitis or GI perforation Follow up pathology/cytology Follow up in GI clinic in 3 months No qualified resident/fellow was available. Claudia Odonnell MD SIGNATURE: Claudia Odonnell MD PATIENT NAME: Gracie Banuelos DATE: December 05, 2019 TIME: 8:46 AM PAGER/CONTACT #:[phone] [facility] PROGRESSon 12-05-2019 PROGRESS HNO ID: [id number] Author: Juan Everett Service: General Surgery Author Type: Nurse Practitioner Type: Progress Notes Filed: 12/05/2019 7:17 AM Note Text: HANDP completed by Dr. Claudia Odonnell on 11/09/2019. Orders for fluid and IV in Epic. Order for BS check in pre op. Last few BMPs- low glucose. Pt denies history of hypoglycemia. [facility] PT EDon 12-05-2019 PT ED HNO ID: [id number] Author: Ani (Rn) SARWAT Ortiz Service: Nursing Author Type: Registered Nurse Type: Patient Education Filed: 12/05/2019 8:58 AM Note Text: POST OP LEARNING RESPONSE INSTRUCTION PROVIDED TO: Patient and family member METHOD OF INSTRUCTION: Individual instruction PATIENT / FAMILY RESPONSE: Verbalizes understanding of: POST-PROCEDURE INSTRUCTIONS-Correct actions to take to reduce post procedure complications FOLLOW-UP PLAN: Patient instructed to call with any further issues SUPPLEMENTAL MATERIAL: None REFERRAL (RECOMMENDATION): None Electronically Signed By: Ani Ortiz RN In Department: [place] ENDO [facility] PT ED HNO ID: [id number] Author: Gabby (Rn) SARWAT Walker Service: Nursing Author Type: Registered Nurse Type: Patient Education Filed: 12/05/2019 7:18 AM Note Text: PRE OP LEARNING ASSESSMENT PROCEDURE/SURGERY: GI PROCEDURES: ESU READINESS TO LEARN COGNITIVE ABILITY: Alert and oriented MOTIVATION TO LEARN: Interested FAMILY SUPPORT: High - Very involved in pt care PATIENT LEARNS BEST BY: Individual Instruction Verbal Instruction FACTORS AFFECTING LEARNING: None PHYSICAL LIMITATIONS AFFECTING LEARNING: None Electronically Signed By: Gabby Walker RN In Department: [place] ENDO ONGOING PATIENT EDUCATION TOPIC Reinforced: EUS Patient Name: Gracie Banuelos [facility] Readiness To Learn Motivation To Learn: Interested Instruction Provided To: Patient and family member Learning Response Patient/Family Response: Verbalizes understanding of: PRE-PROCEDURE INSTRUCTIONS-Correct action to take to follow pre-procedure instructions Method of Instruction: Individual instruction Verbal instruction Follow-Up Plan: Complete - No need for follow-up Electronically signed by: Gabby Walker RN [facility] Surgical Tissue Ex[place] 12-04 Surgical Tissue Exam Test performed at [address] [place] [address] NAME: GRACIE BANUELOS REQUESTING: CLAUDIA ODONNELL FINAL DIAGNOSIS: STOMACH, BIOPSY - MODERATE REACTIVE GASTROPATHY WITH MILD CHRONIC, MINIMAL ACTIVE INFLAMMATION. IMMUNOHISTOCHEMICAL STAIN FOR HELICOBACTER PYLORI IS NEGATIVE FOR MICROORGANISMS. OPERATIVE PROCEDURE: EGD/EUS CLINICAL INFORMATION: Alcohol induced chronic pancreatitis; gastritis GROSS DESCRIPTION: Gastric bx Received in formalin labeled gastric biopsy are multiple hess soft segments of tissue aggregating to 0.5 x 0.3 x <0.1 cm. The specimens are totally submitted in formalin in one cassette. KVB:natasha BENITEZ M.D. PATHOLOGIST (Electronic signature on file) Signed out: 12/07/2019 13:24 PRINTED: 12/07/2019 Page 1 of 1 Normal [facility] Comment on above: Performed By: #### S URG #### [facility] [address] [address] HOSPon 11-10-2019 HOSP Patient:Gracie Banuelos MRN: Height:5' 3(1.6 m) Weight:111 lb (50.349 kg) Outpatient Medications as of 12/05/19: pfjwki-grhblycb-mlhzbeu (CREON 24) 24,000-76,000 -120,[address] (PROTONIX) 40 mg tablet ondansetron (ZOFRAN) 4 mg tablet promethazine (PHENERGAN) 25 mg tablet ketorolac (TORADOL) 10 mg tablet loperamide (IMODIUM) 2 mg cap(s) Protein (ENSURE HIGH PROTEIN) powd Cholecalciferol, Vitamin D3, (D3-2000) 2,000 unit cap FOLIC ACID ORAL vitamin B complex (B COMPLEX 1 ORAL) ibuprofen (MOTRIN) 400 mg tablet mirtazapine (REMERON) 15 mg tablet triamcinolone (KENALOG) 0.025 % cream vitamin A and D ointment Blood Pressure Monitor kit pseudoephedrine-guaiFEN esin (MUCINEX D) 60-600 mg per tablet benzonatate (TESSALON PERLES) 100 mg capsule hydrOXYzine pamoate (VISTARIL) 50 mg capsule vilazodone (VIIBRYD) 40 mg albuterol (PROVENTIL) 2.5 mg /3 mL (0.083 %) nebulizer solution albuterol HFA (VENTOLIN HFA) 90 mcg/actuation inhaler VITAMIN D-3 2,000 unit cap MELATONIN ORAL OXYGEN, HOME THERAPY, COMPOUNDED PRESCRIPTION Pramoxine (PROCTOFOAM) 1 % foam COMPOUNDED PRESCRIPTION tiotropium-olodaterol (STIOLTO RESPIMAT) 2.5-2.5 mcg/actuation mist Admission/Clinic Administered Medications as of 12/05/19: lactated ringers infusion Problem List: Tobacco use disorder [F17.200] Anxiety state [F41.1] Hyperlipidemia [E78.5] Essential hypertension, benign [I10] GERD (gastroesophageal reflux disease) [K21.9] Chronic obstructive pulmonary disease (HCC) [J44.9] Lumbar disc disease with radiculopathy [M51.16] Postmenopausal bleeding [N95.0] Ovarian cyst, right [N83.201] Alcoholic hepatitis without ascites [K70.10] Urine, incontinence, stress female [N39.3] HPV test positive [SSS7140] Pulmonary emphysema (HCC) [J43.9] Irritable bowel syndrome with both constipation and diarrhea [K58.2] Alcohol use disorder, moderate, dependence (HCC) [F10.20] DDD (degenerative disc disease), cervical [M50.30] Severe protein-calorie malnutrition (HCC) [E43] Chronic recurrent pancreatitis (HCC) [K86.1] Reactive depression [F32.9] 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] Allergies: Ativan [Lorazepam] Penicillins Valium [Diazepam] Xanax [Alprazolam] Date Verified: 12/05/19 Lab Values No results within the last 30 days for the following basenames: K,HCT Progress Notes (): Juan Everett, COSMETIC CONSULTANT.DAYTIME CAREGIVER 12/05/2019 7:17 AM Addendum HANDP completed by Dr. Claudia Odonnell on 11/09/2019. Orders for fluid and IV in Epic. Order for BS check in pre op. Last few BMPs- low glucose. Pt denies history of hypoglycemia. Previous Version Gabby Walker RN, RN 12/05/2019 7:18 AM Signed PRE OP LEARNING ASSESSMENT PROCEDURE/SURGERY: GI PROCEDURES: ESU READINESS TO LEARN COGNITIVE ABILITY: Alert and oriented MOTIVATION TO LEARN: Interested FAMILY SUPPORT: High - Very involved in pt care PATIENT LEARNS BEST BY: Individual Instruction Verbal Instruction FACTORS AFFECTING LEARNING: None PHYSICAL LIMITATIONS AFFECTING LEARNING: None Electronically Signed By: Gabby Walker RN In Department: [place] ENDO ONGOING PATIENT EDUCATION TOPIC Reinforced: EUS Patient Name: [facility]ac[facility] Banuelos [facility] Readiness To Learn Motivation To Learn: Interested Instruction Provided To: Patient and family member Learning Response Patient/Family Response: Verbalizes understanding of: PRE-PROCEDURE INSTRUCTIONS-Correct action to take to follow pre-procedure instructions Method of Instruction: Individual instruction Verbal instruction Follow-Up Plan: Complete - No need for follow-up Electronically signed by: SARWAT Altman MD 12/05/2019 7:50 AM Signed ANESTHESIOLOGY DAY OF SURGERY NOTE SERVICE DATE: 12/05/2019 SERVICE TIME: 7:47 AM : 1965 Procedure(s) (LRB): ENDOSCOPY UPPER GI W/ ENDOSCOPIC ULTRASOUND EXAMINATION, (Left) Surgeon(s): Claudia Odonnell Estimated body mass index is 19.66 kg/m? as calculated from the following: Height as of 11/09/19: 160 cm (5' 3). Weight as of 11/09/19: 50.3 kg (111 lb). Most recent hematocrit and potassium results: Hematocrit 44.0 07/05/2019 Potassium 4.4 07/05/2019 ANES DOS/PREOP NOTE: Vitals: 12/05/19 0654 BP: 115/72 Pulse: 86 Resp: 18 Temp: 36 ?C (96.8 ?F) SpO2: 98% ACTIVE PROBLEM LIST Tobacco Use Disorder Anxiety State Hyperlipidemia Essential Hypertension, Benign Gerd (Gastroesophageal Reflux Disease) Chronic Obstructive Pulmonary Disease (Hcc) Lumbar Disc Disease With Radiculopathy Postmenopausal Bleeding Ovarian Cyst, Right Alcoholic Hepatitis Without Ascites Urine, Incontinence, Stress Female Hpv Test Positive Pulmonary Emphysema (Hcc) Irritable Bowel Syndrome With Both Constipation and Diarrhea Alcohol Use Disorder, Moderate, Dependence (Hcc) Ddd (Degenerative Disc Disease), Cervical Severe Protein-Calorie Malnutrition (Hcc) Chronic Recurrent Pancreatitis (Hcc) Reactive Depression Alcohol-Induced Chronic Pancreatitis (Hcc) PAST MEDICAL HISTORY Diagnosis Date - Acute exacerbation of chronic obstructive airways disease (HCC) - Alcohol dependence in remission (HCC) 07/10/2015 - Alcohol use disorder 08/27/2017 - Alcoholic hepatitis 05/18/2012 - Alcoholic liver disease (HCC) 11/16/2013 - Anemia - Anxiety with depression - COPD (chronic obstructive pulmonary disease) (HCC) 05/25/2012 - DDD (degenerative disc disease), cervical 09/03/2018 - Diaphragmatic hernia without mention of obstruction or gangrene - Diarrhea - GERD (gastroesophageal reflux disease) - HLD (hyperlipidemia) - HTN (hypertension) - Human papillomavirus in conditions classified elsewhere and of unspecified site - Irritable bowel syndrome with both constipation and diarrhea 08/27/2017 - Lumbar disc disease with radiculopathy 06/18/2012 - Other and unspecified alcohol dependence, unspecified drinking behavior - Ovarian cyst, right 12/27/2012 - Pancreatitis 03/08 - Pancreatitis chronic 05/26/2011 - Pneumonia of both lungs due to infectious organism 2018 - Stage 2 moderate COPD by GOLD classification (HCC) 2018 - Tobacco use - Unspecified hemorrhoids without mention of complication - Urine, incontinence, stress female 11/24/2014 PAST SURGICAL HISTORY Procedure Laterality Date - APPENDECTOMY at age 14 - COLONOSCOPY 04/15/[address], [address] Paul Perez. - COLONOSCOPY 01/23/2015 2-Tubular adenomas. Dr. Víctor Lopez. - COLONOSCOPY 07/29/2017 normal - EGD 10/03/[address] Paul Perez. - EGD 07/29/2017 mild gastritis, otherwise normal FAMILY HISTORY Problem Relation Age of Onset - Diabetes Mother - Hypertension Mother - Rheumatologic disease Mother - other (lung cancer) Mother - Hypertension Brother - Cervical Cancer Sister X 2 Social History: Social History Tobacco Use - Smoking status: Current Every Day Smoker Packs/day: 0.50 Years: 30.00 Pack years: 15.00 Types: Cigarettes - Smokeless tobacco: Never Used Substance Use Topics - Alcohol use: Not Currently Comment: Alcoholic - January 2019- last drink - Drug use: Yes Types: Marijuana Comment: rarely- last time used was Oct 2019 No current facility-administered medications on file prior to encounter. Current Outpatient Medications on File Prior to Encounter Medication Sig - ckpqkp-harsmfvp-uqpwvpr (CREON 24) 24,000-76,000 -120,000 unit cpDR Take 3 capsules by mouth three times daily with meals. - pantoprazole DR (PROTONIX) 40 mg tablet Take 1 tablet by mouth once daily. - ondansetron (ZOFRAN) 4 mg tablet Take 1 tablet by mouth every 8 hours as needed for Nausea/Vomiting. - loperamide (IMODIUM) 2 mg cap(s) Take 1 capsule by mouth four times daily as needed for Diarrhea. - FOLIC ACID ORAL Take 1 mg by mouth once daily. - vitamin B complex (B COMPLEX 1 ORAL) Take by mouth once daily. - ibuprofen (MOTRIN) 400 mg tablet EVERY 6 HOURS NEEDED - mirtazapine (REMERON) 15 mg tablet Take 1 tablet by mouth daily at bedtime. - vitamin A and D ointment Apply 1 application to affected area as needed. - Blood Pressure Monitor kit 1 Kit as directed. Needs Pediatric Cuff with automatic monitor (patient weighs 90 pounds) Use as directed. Dx: Essential Hypertension I.10 - hydrOXYzine pamoate (VISTARIL) 50 mg capsule Take 1 capsule by mouth three times daily as needed. for anxiety - vilazodone (VIIBRYD) 40 mg Take 1 tablet by mouth daily with breakfast. - albuterol (PROVENTIL) 2.5 mg /3 mL (0.083 %) nebulizer solution Use 3 mL via nebulizer one time only for 1 dose. Use over 5-15minutes. - albuterol HFA (VENTOLIN HFA) 90 mcg/actuation inhaler Inhale 2 Puffs as instructed four times daily as needed. - VITAMIN D-3 2,000 unit cap TAKE 1 CAPSULE BY MOUTH DAILY - OXYGEN, HOME THERAPY, Inhale as instructed as directed. Patient is on 2-3 liters - tiotropium-olodaterol (STIOLTO RESPIMAT) 2.5-2.5 mcg/actuation mist Inhale 2 Inhalation as instructed once daily. - promethazine (PHENERGAN) 25 mg tablet Take 1 tablet by mouth every 8 hours as needed for Nausea/Vomiting. - ketorolac (TORADOL) 10 mg tablet Take 1 tablet by mouth every 6 hours as needed. - Protein (ENSURE HIGH PROTEIN) powd Take 250 kcal by mouth twice daily. - Cholecalciferol, Vitamin D3, (D3-2000) 2,000 unit cap Take 1 capsule by mouth once daily. - triamcinolone (KENALOG) 0.025 % cream Apply 1 application to affected area twice daily. (Patient taking differently: Apply 1 application to affected area twice daily as needed. ) - pseudoephedrine-guaiFEN esin (MUCINEX D) 60-600 mg per tablet Take 1 tablet by mouth every 12 hours as needed for Cold/Allergy Symptoms. (Patient not taking: Reported on 04/28/2019 ) - benzonatate (TESSALON PERLES) 100 mg capsule Take 1 capsule by mouth three times daily as needed for Cough. (Patient not taking: Reported on 04/28/2019 ) - MELATONIN ORAL Take by mouth once daily. - COMPOUNDED PRESCRIPTION Pulse Oximetry - Pramoxine (PROCTOFOAM) 1 % foam 1 application by RECTAL route every 2 hours as needed. - COMPOUNDED PRESCRIPTION nebulizer supplies (tubing) Current Facility-Administered Medications Medication Dose Route Frequency Provider Last Rate Last Dose - lactated ringers infusion 5-30 mL/hr INTRAVENOUS CONTINUOUS Juan E Bucur 30 mL/hr at 12/05/19726 30 mL/hr at 12/05/19726 Allergies: ALLERGIES Allergen Reactions - Ativan [Lorazepam] Other: See Comments cross reaction with alcohol addication - Penicillins Other: See Comments hives - Valium [Diazepam] Other: See Comments cross reaction with alcohol addiction - Xanax [Alprazolam] Other: See Comments cross reaction with alcohol addiction DOS EXAM: Adequate NPO Status: Yes Anesthetic Risks, Benefits, Alternatives, Personnel and Consent Discussed: Yes Patient agrees to proceed: Yes Previous Anesthesia: No history of adverse event Airway Assessment: MP 2; Neck ROM: Full ROM without neurologic symptoms; Airway Evaluation: No significant abnormalities Symptoms of Sleep Apnea: Hypertension and Age over 50 (54 year old) Dentition: Dentures: both Additional Physical Exam: Lungs: Patient health status unchanged since recent history and physical. See history and physical for exam findings. Cardiac: Patient health status unchanged since recent history and physical. See history and physical for exam findings. Additional Pertinent Findings: N/A Blood Products: Not anticipated for this procedure Anesthetic Plan: MAC with general as back up Anesthetic Monitoring: Standard ASA Monitors Pain Management Plan: Parenteral or Oral ASA Class: 3 Other Medical Problems: hx etoh abuse. Sober 10 months per patient, pancreatitis, copd , smoker, oxygen prn Chronic Beta [place] medication administered within 24 hours: N/A I have interviewed and examined the patient. I have reviewed the medical record and/or the pre-anesthesia evaluation, pertinent labs, and test results. Significant changes in the patient's condition since the History and Physical, not otherwise documented in primary service progress notes: No This contains updated information obtained within 48 hours of Surgery/Procedure. SIGNATURE: Mark Saab MD PATIENT NAME: Gracie Banuelos DATE: December 05, 2019 TIME: 7:47 AM CSN: [id number] Progress Notes ([facility]): Claudia Odonnell MD 11/09/2019 3:06 PM Signed HPI:Gracie Banuelos is a 54 year old female who presents for Chronic Pancreatitis. She has h/o- alcohol abuse- quit 10 months ago. She has c/o- pain lower abdomen which is chronic for several years and unrelated to food intake. Also has c/o- diarrhea. She has also difficulty to gain weight. She had CT-scan abdomen from [facility] which shows calcifications in pancreas- suggestive of chronic pancreatitis. No h/o- nausea, vomiting, loss of appetite, hematemesis, bleeding HI, unexplained weight loss, diarrhea, tenesmus, nocturnal diarrhea. She is an active smoker. No F/H of pancreatic cancer. PAST MEDICAL HISTORY Diagnosis Date - Acute exacerbation of chronic obstructive airways disease (HCC) - Alcohol dependence in remission ([facility]) 07/10/2015 - Alcohol use disorder 08/27/2017 - Alcoholic hepatitis 05/18/2012 - Alcoholic liver disease (HCC) 11/16/2013 - Anemia - Anxiety with depression - COPD (chronic obstructive pulmonary disease) ([facility]) 05/25/2012 - DDD (degenerative disc disease), cervical 09/03/2018 - Diaphragmatic hernia without mention of obstruction or gangrene - Diarrhea - GERD (gastroesophageal reflux disease) - HLD (hyperlipidemia) - HTN (hypertension) - Human papillomavirus in conditions classified elsewhere and of unspecified site - Irritable bowel syndrome with both constipation and diarrhea 08/27/2017 - Lumbar disc disease with radiculopathy 06/18/2012 - Other and unspecified alcohol dependence, unspecified drinking behavior - Ovarian cyst, right 12/27/2012 - Pancreatitis 03/08 - Pancreatitis chronic 05/26/2011 - Pneumonia of both lungs due to infectious organism 2017 - Stage 2 moderate COPD by GOLD classification ([facility]) 2018 - Tobacco use - Unspecified hemorrhoids without mention of complication - Urine, incontinence, stress female 11/24/2014 PAST SURGICAL HISTORY Procedure Laterality Date - APPENDECTOMY - COLONOSCOPY 04/15/2011 Hemorrhoids, Diverticulosis. Dr. Paul Perez. - COLONOSCOPY 01/23/2015 2-Tubular adenomas. Dr. Víctor Lopez. - COLONOSCOPY 07/29/2017 normal - EGD 10/03/[address] Paul Perez. - EGD 07/29/2017 mild gastritis, otherwise normal Allergies: ALLERGIES Allergen Reactions - Ativan [Lorazepam] Other: See Comments cross reaction with alcohol addication - Penicillins - Valium [Diazepam] Other: See Comments cross reaction with alcohol addiction - Xanax [Alprazolam] Other: See Comments cross reaction with alcohol addiction Medications: omeprazole (PRILOSEC) 20 mg capsule TAKE 1 CAPSULE BY MOUTH EVERY DAY 30 minutes before BREAKFAST ondansetron (ZOFRAN) 4 mg tablet Take 1 tablet by mouth every 8 hours as needed for Nausea/Vomiting. promethazine (PHENERGAN) 25 mg tablet Take 1 tablet by mouth every 8 hours as needed for Nausea/Vomiting. ketorolac (TORADOL) 10 mg tablet Take 1 tablet by mouth every 6 hours as needed. loperamide (IMODIUM) 2 mg cap(s) Take 1 capsule by mouth four times daily as needed for Diarrhea. Protein (ENSURE HIGH PROTEIN) powd Take 250 kcal by mouth twice daily. Cholecalciferol, Vitamin D3, (D3-2000) 2,000 unit cap Take 1 capsule by mouth once daily. FOLIC ACID ORAL Take 1 mg by mouth once daily. ibuprofen (MOTRIN) 400 mg tablet EVERY 6 HOURS NEEDED mirtazapine (REMERON) 15 mg tablet Take 1 tablet by mouth daily at bedtime. triamcinolone (KENALOG) 0.025 % cream Apply 1 application to affected area twice daily. vitamin A and D ointment Apply 1 application to affected area as needed. Blood Pressure Monitor kit 1 Kit as directed. Needs Pediatric Cuff with automatic monitor (patient weighs 90 pounds) Use as directed. Dx: Essential Hypertension I.10 hydrOXYzine pamoate (VISTARIL) 50 mg capsule Take 1 capsule by mouth three times daily as needed. for anxiety vilazodone (VIIBRYD) 40 mg Take 1 tablet by mouth daily with breakfast. albuterol (PROVENTIL) 2.5 mg /3 mL (0.083 %) nebulizer solution Use 3 mL via nebulizer one time only for 1 dose. Use over 5-15minutes. albuterol HFA (VENTOLIN HFA) 90 mcg/actuation inhaler Inhale 2 Puffs as instructed four times daily as needed. VITAMIN D-3 2,000 unit cap TAKE 1 CAPSULE BY MOUTH DAILY MELATONIN ORAL Take by mouth once daily. OXYGEN, HOME THERAPY, Inhale as instructed as directed. Patient is on 2-3 liters COMPOUNDED PRESCRIPTION Pulse Oximetry Pramoxine (PROCTOFOAM) 1 % foam 1 application by RECTAL route every 2 hours as needed. COMPOUNDED PRESCRIPTION nebulizer supplies (tubing) tiotropium-olodaterol (STIOLTO RESPIMAT) 2.5-2.5 mcg/actuation mist Inhale 2 Inhalation as instructed once daily. vitamin B complex (B COMPLEX 1 ORAL) Take by mouth once daily. pseudoephedrine-guaiFEN esin (MUCINEX D) 60-600 mg per tablet Take 1 tablet by mouth every 12 hours as needed for Cold/Allergy Symptoms. benzonatate (TESSALON PERLES) 100 mg capsule Take 1 capsule by mouth three times daily as needed for Cough. 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 Review of Systems: Review of Systems Respiratory: Positive for cough. Gastrointestinal: Positive for diarrhea, nausea and vomiting. All other systems reviewed and are negative. I have confirmed and edited as necessary, the PFSH and ROS obtained by others. Hemoglobin (g/dL) Date Value 07/05/2019 14.2 Hematocrit (%) Date Value 07/05/2019 44.0 WBC (k/uL) Date Value 07/05/2019 13.16 Platelet Count (k/uL) Date Value 07/05/2019 363 CMP: Glucose 31 07/05/2019 BUN 8 07/05/2019 Creatinine 0.50 07/05/2019 Sodium 138 07/05/2019 Potassium 4.4 07/05/2019 Chloride 96 07/05/2019 CO2 18 07/05/2019 Protein, Total 7.4 07/05/2019 Albumin 4.5 07/05/2019 Calcium 9.8 07/05/2019 Alkaline Phosphatase 108 07/05/2019 Bilirubin, Total 0.3 07/05/2019 AST 29 07/05/2019 ALT 19 07/05/2019 Physical Examination: BP 102/74 Pulse 90 Ht 5' 3 (1.60m) Wt 111 lb (50.3kg) SpO2 93% LMP 06/08/2010 BMI 19.67 kg/(m2). General appearance: Well appearing, alert, in no acute distress, well-hydrated, well nourished. Skin: Skin color, texture, turgor normal Head: Normocephalic, no masses, lesions, tenderness or abnormalities Eyes: Anicteric sclera. Pupils are equally round. Oropharynx: Lips, mucosa, and tongue normal, teeth and gums normal, oropharynx normal Neck: Supple, no adenopathy; thyroid symmetric, normal size, no bruits Lungs: positive findings: rhonchi Heart: RRR without murmur, gallop, or rubs. No ectopy Abdomen: Normal abdominal exam, Abdomen soft, non-tender. Bowel sounds normal. No masses, organomegaly Extremities: No deformities, edema, skin discoloration, clubbing or cyanosis. Good capillary refill. ASSESSMENT: 54 year old female patient who is in our clinic with h/o- chronic pancreatitis (ETOH related), with c/o- lower abdomen pain and diarrhea. She had colonoscopy which is normal. Abdomen pain is unrelated to food intake but improves with BM. Her abdominal pain is likely from IBS. PLAN: We will plan EUS of pancreas. Also will start her on Creon and PPI. Advised her to quit smoking as it increases the risk of pancreatic cancer. She will have low fat diet. Claudia Odonnell MD DATE: 11/09/19 TIME: 2:32 PM Previous Version Normal [facility] Pulmonary Functiono n 06-19-2017 [place] [facility]monary Function Normal [facility] ([place] No Panel Information SARS-CoV-2 & FLU Antigen (Rapid) [facility] Work Phone: Vital Signs Date Time Vital Sign Value Performing Clinician Facility 03-10-2025 17:00-0400 Diastolic blood pressure 62 mm[Hg] Jane Farrell MD Work Phone: [facility] 03-10-2025 17:00-0400 Heart rate 88 /min Jane Farrell MD Work Phone: [facility] 03-10-2025 17:00-0400 Respiratory rate 18 /min Jane Farrell MD Work Phone: [facility] 03-10-2025 17:00-0400 SaO2% (BldA) [Mass fraction] 94 % Jane Farrell MD Work Phone: [facility] 03-10-2025 17:00-0400 Systolic blood pressure 94 mm[Hg] Jane Farrell MD Work Phone: [facility] 03-10-2025 15:20-0400 Body temperature 97.5 [degF] Jane Farrell MD Work Phone: [facility] 03-10-2025 12:26-0400 Body height 160 cm Jane Farrell MD Work Phone: [facility] 03-10-2025 12:26-0400 Body mass index (BMI) [Ratio] 23.03 kg/m2 Jane Farrell MD Work Phone: [facility] 03-10-2025 12:26-0400 Body weight 58.97 kg Jane Farrell MD Work Phone: [facility] 02-26-2025 15:48-0400 Body temperature 98.7 [degF] Dr. Annmarie Elkins MD Work Phone: [facility] 02-26-2025 15:48-0400 Diastolic blood pressure 78 mm[Hg] Dr. Annmarie Elkins MD Work Phone: [facility] 02-26-2025 15:48-0400 Heart rate 67 /min Dr. Annmarie Elkins MD Work Phone: [facility] 02-26-2025 15:48-0400 Respiratory rate 12 /min Dr. Annmarie Elkins MD Work Phone: [facility] 02-26-2025 15:48-0400 SaO2% (BldA) [Mass fraction] 94 % Dr. Annmarie Elkins MD Work Phone: [facility] 02-26-2025 15:48-0400 Systolic blood pressure 145 mm[Hg] Dr. Annmarie Elkins MD Work Phone: [facility] 02-26-2025 15:07-0400 Inhaled oxygen flow rate 5 L/min Dr. Annmarie Elkins MD Work Phone: 1(514)109-867567 [place] [address] 02-26-2025 13:57-0400 Body height 160.[address] Annmarie Elkins MD Work Phone: 4(473)537-151767 [place] [address] 02-26-2025 13:57-0400 Body mass index (BMI) [Ratio] 23.9 kg/m2 Dr. Annmarie Elkins MD Work Phone: 4(921)865-152167 [place] [address] 02-26-2025 13:57-0400 Body weight 61.[address] Annmarie Elkins MD Work Phone: 8(840)518-552667 [place] [address] 02-08-2025 08:20-0400 Body mass index (BMI) [Ratio] 23.7 kg/m2 Dr. Annmarie Elkins MD Work Phone: 3(999)031-309967 [place] [address] 02-08-2025 08:20-0400 Body temperature 97.6 [degF] Dr. Annmarie Elkins MD Work Phone: 7(608)063-656267 [place] [address] 02-08-2025 08:20-0400 Body weight 60.[address] Annmarie Elkins MD Work Phone: 5(904)097-264367 [place] [address] 02-08-2025 08:20-0400 Diastolic blood pressure 67 mm[Hg] Dr. Annmarie Elkins MD Work Phone: 0(968)283-101667 [place] [address] 02-08-2025 08:20-0400 Heart rate 87 /min Dr. Annmarie Elkins MD Work Phone: 9(059)431-537267 [place] [address] 02-08-2025 08:20-0400 Inhaled oxygen flow rate 5 L/min Dr. Annmarie Elkins MD Work Phone: 6(988)500-766067 [place] [address] 02-08-2025 08:20-0400 Respiratory rate 20 /min Dr. Annmarie Elkins MD Work Phone: 7(521)591-346667 [place] [address] 02-08-2025 08:20-0400 SaO2% (BldA) [Mass fraction] 92 % Dr. Annmarie Elkins MD Work Phone: 1(272)206-397867 [place] [address] 02-08-2025 08:20-0400 Systolic blood pressure 116 mm[Hg] Dr. Annmarie Elkins MD Work Phone: 3(557)607-786167 [place] [address] 01-27-2025 12:55-0400 Diastolic blood pressure 76 mm[Hg] Dr. Annmarie Elkins MD Work Phone: 1(105)492-691567 [place] [address] 01-27-2025 12:55-0400 Heart rate 93 /min Dr. Annmarie Elkins MD Work Phone: 2(038)881-133267 [place] [address] 01-27-2025 12:55-0400 Respiratory rate 18 /min Dr. Annmarie Elkins MD Work Phone: 0(426)673-733467 [place] [address] 01-27-2025 12:55-0400 SaO2% (BldA) [Mass fraction] 97 % Dr. Annmarie Elkins MD Work Phone: 4(774)011-509167 [place] [address] 01-27-2025 12:55-0400 Systolic blood pressure 162 mm[Hg] Dr. Annmarie Elkins MD Work Phone: 8(122)421-649767 [place] [address] 01-27-2025 12:00-0400 Body temperature 97.8 [degF] Dr. Annmarie Elkins MD Work Phone: 3(972)938-314767 [place] [address] 01-27-2025 12:00-0400 Inhaled oxygen flow rate 5 L/min Dr. Annmarie Elkins MD Work Phone: 9(373)713-152467 [place] [address] 01-27-2025 10:14-0400 Body height 160.[address] Annmarie Elkins MD Work Phone: 4(643)507-858167 [place] [address] 01-27-2025 10:14-0400 Body mass index (BMI) [Ratio] 23.5 kg/m2 Dr. Annmarie Elkins MD Work Phone: 3(362)766-084767 [place] [address] 01-27-2025 10:14-0400 Body weight 60.[address] Annmarie Elkins MD Work Phone: 3(244)567-737367 [place] [address] 01-13-2025 10:51-0400 Body mass index (BMI) [Ratio] 24.45 kg/m2 Soila Easton APRN.CNP Work Phone: [facility] 01-13-2025 10:51-0400 Body weight 62.6 kg COSMETIC CONSULTANT.DAYTIME CAREGIVER Work Phone: [facility] 01-13-2025 10:51-0400 Diastolic blood pressure 60 mm[Hg] COSMETIC CONSULTANT.DAYTIME CAREGIVER Work Phone: [facility] 01-13-2025 10:51-0400 Heart rate 88 /min Older COSMETIC CONSULTANT.DAYTIME CAREGIVER Work Phone: [facility] 01-13-2025 10:51-0400 Respiratory rate 16 /min COSMETIC CONSULTANT.DAYTIME CAREGIVER Work Phone: [facility] 01-13-2025 10:51-0400 SaO2% (BldA) [Mass fraction] 85 % COSMETIC CONSULTANT.DAYTIME CAREGIVER Work Phone: [facility] 01-13-2025 10:51-0400 Systolic blood pressure 108 mm[Hg] COSMETIC CONSULTANT.DAYTIME CAREGIVER Work Phone: [facility] 01-01-2025 22:15-0400 Body temperature 97.9 [degF] Dr. Annmarie Elkins MD Work Phone: [facility] 01-01-2025 22:15-0400 Diastolic blood pressure 70 mm[Hg] Dr. Annmarie Elkins MD Work Phone: [facility] 01-01-2025 22:15-0400 Heart rate 108 /min Dr. Annmarie Elkins MD Work Phone: [facility] 01-01-2025 22:15-0400 Respiratory rate 24 /min Dr. Annmarie Elkins MD Work Phone: [facility] 01-01-2025 22:15-0400 SaO2% (BldA) [Mass fraction] 96 % Dr. Annmarie Elkins MD Work Phone: [facility] 01-01-2025 22:15-0400 Systolic blood pressure 104 mm[Hg] Dr. Annmarie Elkins MD Work Phone: 7(571)095-281667 [place] [address] 01-01-2025 21:01-0400 Inhaled oxygen flow rate 5 L/min Dr. Annmarei Elkins MD Work Phone: 1(839)640-414867 [place] [address] 01-01-2025 20:52-0400 Body mass index (BMI) [Ratio] 24.7 kg/m2 Dr. Annmarie Elkins MD Work Phone: 3(982)488-129167 [place] [address] 01-01-2025 20:52-0400 Body weight 63.[address] Annmarie Elkins MD Work Phone: 1(347)687-076967 [place] [address] 01-01-2025 20:27-0400 Body height 160.[address] Annmarie Elkins MD Work Phone: 7(104)849-822267 [place] [address] 12-24-2024 21:38-0400 Body temperature 97.8 [degF] Dr. Annmarie Elkins MD Work Phone: 8(962)944-862567 [place] [address] 12-24-2024 21:38-0400 Diastolic blood pressure 89 mm[Hg] Dr. Annmarie Elkins MD Work Phone: 1(127)362-650867 [place] [address] 12-24-2024 21:38-0400 Heart rate 98 /min Dr. Annmarie Elkins MD Work Phone: 1(931)313-187067 [place] [address] 12-24-2024 21:38-0400 Respiratory rate 24 /min Dr. Annmarie Elkins MD Work Phone: 6(837)426-497267 [place] [address] 12-24-2024 21:38-0400 SaO2% (BldA) [Mass fraction] 98 % Dr. Annmarie Elkins MD Work Phone: 6(276)424-648367 [place] [address] 12-24-2024 21:38-0400 Systolic blood pressure 148 mm[Hg] Dr. Annmarie Elkins MD Work Phone: 2(903)250-101567 [place] [address] 12-24-2024 20:46-0400 Inhaled oxygen flow rate 5 L/min Dr. Annmarie Elkins MD Work Phone: 0(043)572-413067 [place] [address] 12-24-2024 19:39-0400 Body height 160.[address] Annmarie Elkins MD Work Phone: 0(975)868-340967 [place] [address] 12-24-2024 19:39-0400 Body mass index (BMI) [Ratio] 24.3 kg/m2 Dr. Annmarie Elkins MD Work Phone: 1(692)747-621767 [place] [address] 12-24-2024 19:39-0400 Body weight 62.[address] Annmarie Elkins MD Work Phone: 0(495)202-359067 [place] [address] 12-23-2024 08:11-0400 Body mass index (BMI) [Ratio] 24.6 kg/m2 Dr. Annmarie Elkins MD Work Phone: 5(272)059-682467 [place] [address] 12-23-2024 08:11-0400 Body temperature 97.4 [degF] Dr. Annmarie Elkins MD Work Phone: 5(843)116-173967 [place] [address] 12-23-2024 08:11-0400 Body weight 63.[address] Annmarie Elkins MD Work Phone: 3(421)360-967167 [place] [address] 12-23-2024 08:11-0400 Diastolic blood pressure 73 mm[Hg] Dr. Annmarie Elkins MD Work Phone: 0(953)917-555467 [place] [address] 12-23-2024 08:11-0400 Heart rate 97 /min Dr. Annmarie Elkins MD Work Phone: 9(720)817-741367 [place] [address] 12-23-2024 08:11-0400 Inhaled oxygen flow rate 3 L/min Dr. Annmarie Elkins MD Work Phone: 9(127)450-073067 [place] [address] 12-23-2024 08:11-0400 Respiratory rate 22 /min Dr. Annmarie Elkins MD Work Phone: 9(183)957-456667 [place] [address] 12-23-2024 08:11-0400 SaO2% (BldA) [Mass fraction] 90 % Dr. Annmarie Elkins MD Work Phone: 5(858)054-703967 [place] [address] 12-23-2024 08:11-0400 Systolic blood pressure 153 mm[Hg] Dr. Annmarie Elkins MD Work Phone: 6(692)015-593767 [place] [address] 12-19-2024 14:49-0400 Body mass index (BMI) [Ratio] 24.27 kg/m2 Tara Youngblood COSMETIC CONSULTANT.DAYTIME CAREGIVER Work Phone: [facility] 12-19-2024 14:49-0400 Body weight 62.14 kg Tarasummer Alvesson COSMETIC CONSULTANT.DAYTIME CAREGIVER Work Phone: [facility] 12-19-2024 14:49-0400 Diastolic blood pressure 62 mm[Hg] Tara Youngblood COSMETIC CONSULTANT.DAYTIME CAREGIVER Work Phone: [facility] 12-19-2024 14:49-0400 Heart rate 103 /min Tara Youngblood COSMETIC CONSULTANT.DAYTIME CAREGIVER Work Phone: [facility] 12-19-2024 14:49-0400 Respiratory rate 16 /min Tara Youngblood COSMETIC CONSULTANT.DAYTIME CAREGIVER Work Phone: [facility] 12-19-2024 14:49-0400 SaO2% (BldA) [Mass fraction] 93 % Tara Youngblood COSMETIC CONSULTANT.DAYTIME CAREGIVER Work Phone: [facility] Comment on above: on 4 liters 12-19-2024 14:49-0400 Systolic blood pressure 118 mm[Hg] Tara Alvesson COSMETIC CONSULTANT.DAYTIME CAREGIVER Work Phone: [facility] 12-12-2024 15:22-0400 Heart rate 87 /min Dr. Annmarie Elkins MD Work Phone: [facility] 12-12-2024 15:22-0400 Respiratory rate 18 /min Dr. Annmarie Elkins MD Work Phone: [facility] 12-12-2024 14:00-0400 Inhaled oxygen flow rate 3 L/min Dr. Annmarie Elkins MD Work Phone: [facility] 12-12-2024 14:00-0400 SaO2% (BldA) [Mass fraction] 93 % Dr. Annmarie Elkins MD Work Phone: [facility] 12-12-2024 13:21-0400 Body temperature 99.1 [degF] Dr. Annmarie Elkins MD Work Phone: 9(296)840-742467 [place] [address] 12-12-2024 13:21-0400 Diastolic blood pressure 63 mm[Hg] Dr. Annmarie Elkins MD Work Phone: 1(846)222-043067 [place] [address] 12-12-2024 13:21-0400 Systolic blood pressure 129 mm[Hg] Dr. Annmarie Elkins MD Work Phone: 0(894)908-865267 [place] [address] 12-12-2024 12:07-0400 Inhaled oxygen concentration 56 % Dr. Annmarie Elkins MD Work Phone: 4(214)882-769467 [place] [address] 12-12-2024 05:02-0400 Body mass index (BMI) [Ratio] 23.7 kg/m2 Dr. Annmarie Elkins MD Work Phone: 5(489)637-821767 [place] [address] 12-12-2024 05:02-0400 Body weight 60.[address] Annmarie Elkins MD Work Phone: 7(844)258-464267 [place] [address] 12-11-2024 13:34-0400 Body height 160.[address] Annmarie Elkins MD Work Phone: 9(698)380-585767 [place] [address] 12-08-2024 07:52-0400 Inhaled oxygen flow rate 13 L/min Dr. Annmarie Elkins MD Work Phone: 8(719)436-937767 [place] [address] 12-08-2024 07:52-0400 SaO2% (BldA) [Mass fraction] 92 % Dr. Annmarie Elkins MD Work Phone: 8(162)984-926267 [place] [address] 12-08-2024 07:16-0400 Heart rate 79 /min Dr. Annmarie Elkins MD Work Phone: 5(799)012-308367 [place] [address] 12-08-2024 07:16-0400 Respiratory rate 20 /min Dr. Annmraie Elkins MD Work Phone: 8(789)339-461867 [place] [address] 12-08-2024 06:00-0400 Body mass index (BMI) [Ratio] 23.8 kg/m2 Dr. Annmarie Elkins MD Work Phone: 9(655)103-205967 [place] [address] 12-08-2024 06:00-0400 Body weight 61.[address] Annmarie Elkins MD Work Phone: 6(215)433-232467 [place] [address] 12-08-2024 04:47-0400 Body temperature 97.8 [degF] Dr. Annmarie Elkins MD Work Phone: 4(607)101-993567 [place] [address] 12-08-2024 04:47-0400 Diastolic blood pressure 59 mm[Hg] Dr. Annmarie Elkins MD Work Phone: 1(621)682-272967 [place] [address] 12-08-2024 04:47-0400 Systolic blood pressure 106 mm[Hg] Dr. Annmarie Elkins MD Work Phone: 2(679)609-974367 [place] [address] 12-07-2024 08:56-0400 Inhaled oxygen concentration 56 % Dr. Annmarie Elkins MD Work Phone: 4(457)240-210267 [place] [address] 12-06-2024 12:53-0400 Body height 160.[address] Annmarie Elkins MD Work Phone: 9(475)587-540567 [place] [address] 12-04-2024 19:00-0400 Heart rate 101 /min Dr. Annmarie Elkins MD Work Phone: 7(957)092-569767 [place] [address] 12-04-2024 19:00-0400 Respiratory rate 23 /min Dr. Annmarie Elkins MD Work Phone: 7(063)183-329267 [place] [address] 12-04-2024 19:00-0400 SaO2% (BldA) [Mass fraction] 94 % Dr. Annmarie Elkins MD Work Phone: 6(249)690-389167 [place] [address] 12-04-2024 18:06-0400 Body temperature 97.7 [degF] Dr. Annamrie Elkins MD Work Phone: 4(491)862-367867 [place] [address] 12-04-2024 18:06-0400 Diastolic blood pressure 93 mm[Hg] Dr. Annmarie Elkins MD Work Phone: 2(306)659-236467 [place] [address] 12-04-2024 18:06-0400 Systolic blood pressure 129 mm[Hg] Dr. Annmarie Elkins MD Work Phone: 1(477)116-863267 [place] [address] 12-04-2024 18:00-0400 Inhaled oxygen flow rate 5 L/min Dr. Annmarie Elkins MD Work Phone: [facility] 12-04-2024 15:51-0400 Body height 160.[address] Annmarie Elkins MD Work Phone: [facility] 12-04-2024 15:51-0400 Body mass index (BMI) [Ratio] 23 kg/m2 Dr. Annmarie Elkins MD Work Phone: [facility] 12-04-2024 15:51-0400 Body weight 58.[address] Annmarie Elkins MD Work Phone: [facility] 12-01-2024 12:20-0500 Heart rate 90 /min Jane Farrell MD Work Phone: [facility] 12-01-2024 12:20-0500 Respiratory rate 16 /min Jane Farrell MD Work Phone: [facility] 12-01-2024 12:20-0500 SaO2% (BldA) [Mass fraction] 89 % Jane Farrell MD Work Phone: [facility] 12-01-2024 12:10-0500 Diastolic blood pressure 66 mm[Hg] Jane Farrell MD Work Phone: [facility] 12-01-2024 12:10-0500 Systolic blood pressure 97 mm[Hg] Jane Farrell MD Work Phone: [facility] 12-01-2024 10:46-0500 Body temperature 97.3 [degF] Jane Farrell MD Work Phone: [facility] 11-07-2024 14:03-0500 Body temperature 97.3 [degF] Annmarie Elkins MD Work Phone: [facility] 11-07-2024 14:03-0500 Diastolic blood pressure 53 mm[Hg] Annmarie Elkins MD Work Phone: [facility] 11-07-2024 14:03-0500 Heart rate 81 /min Annmarie Elkins MD Work Phone: [facility] 11-07-2024 14:03-0500 Respiratory rate 20 /min Annmarie Elkins MD Work Phone: [facility] 11-07-2024 14:03-0500 SaO2% (BldA) [Mass fraction] 93 % Annmarie Elkins MD Work Phone: [facility] 11-07-2024 14:03-0500 Systolic blood pressure 83 mm[Hg] Annmarie Elkins MD Work Phone: [facility] 11-02-2024 13:57-0500 Body height 160 cm Juan Nadeen COSMETIC CONSULTANT.DAYTIME CAREGIVER Work Phone: [facility] 11-02-2024 13:57-0500 Body mass index (BMI) [Ratio] 24.45 kg/m2 Juan Nadeen COSMETIC CONSULTANT.DAYTIME CAREGIVER Work Phone: [facility] 11-02-2024 13:57-0500 Body weight 62.6 kg Juan Nadeen COSMETIC CONSULTANT.DAYTIME CAREGIVER Work Phone: [facility] 11-02-2024 13:57-0500 Diastolic blood pressure 71 mm[Hg] Juan Nadeen COSMETIC CONSULTANT.DAYTIME CAREGIVER Work Phone: [facility] 11-02-2024 13:57-0500 Heart rate 84 /min Juan Nadeen COSMETIC CONSULTANT.DAYTIME CAREGIVER Work Phone: [facility] 11-02-2024 13:57-0500 SaO2% (BldA) [Mass fraction] 97 % Juan Nadeen COSMETIC CONSULTANT.DAYTIME CAREGIVER Work Phone: [facility] Comment on above: 97 2L 11-02-2024 13:57-0500 Systolic blood pressure 140 mm[Hg] Juan Nadeen COSMETIC CONSULTANT.DAYTIME CAREGIVER Work Phone: [facility] 08-15-2024 11:31-0500 Body mass index (BMI) [Ratio] 25.15 kg/m2 Soila Easton COSMETIC CONSULTANT.DAYTIME CAREGIVER Work Phone: [facility] 08-15-2024 11:31-0500 Body weight 64.41 kg Soila Older COSMETIC CONSULTANT.DAYTIME CAREGIVER Work Phone: [facility] 08-15-2024 11:31-0500 Diastolic blood pressure 78 mm[Hg] Soila Older COSMETIC CONSULTANT.DAYTIME CAREGIVER Work Phone: [facility] 08-15-2024 11:31-0500 Heart rate 80 /min Soila Older COSMETIC CONSULTANT.DAYTIME CAREGIVER Work Phone: [facility] 08-15-2024 11:31-0500 Respiratory rate 16 /min Soila Older COSMETIC CONSULTANT.DAYTIME CAREGIVER Work Phone: [facility] 08-15-2024 11:31-0500 SaO2% (BldA) [Mass fraction] 93 % Soila Older COSMETIC CONSULTANT.DAYTIME CAREGIVER Work Phone: [facility] 08-15-2024 11:31-0500 Systolic blood pressure 112 mm[Hg] Soila Older COSMETIC CONSULTANT.DAYTIME CAREGIVER Work Phone: [facility] 08-10-2024 16:58-0500 Body mass index (BMI) [Ratio] 25.15 kg/m2 Soila Older COSMETIC CONSULTANT.DAYTIME CAREGIVER Work Phone: [facility] 08-10-2024 16:58-0500 Body weight 64.41 kg Soila Older COSMETIC CONSULTANT.DAYTIME CAREGIVER Work Phone: [facility] 08-10-2024 16:58-0500 Diastolic blood pressure 80 mm[Hg] Soila Older COSMETIC CONSULTANT.DAYTIME CAREGIVER Work Phone: [facility] 08-10-2024 16:58-0500 Heart rate 96 /min Soila Older COSMETIC CONSULTANT.DAYTIME CAREGIVER Work Phone: [facility] 08-10-2024 16:58-0500 Respiratory rate 16 /min Soila Older COSMETIC CONSULTANT.DAYTIME CAREGIVER Work Phone: [facility] 08-10-2024 16:58-0500 SaO2% (BldA) [Mass fraction] 92 % Soila Older COSMETIC CONSULTANT.DAYTIME CAREGIVER Work Phone: [facility] 08-10-2024 16:58-0500 Systolic blood pressure 118 mm[Hg] Soila Older COSMETIC CONSULTANT.DAYTIME CAREGIVER Work Phone: [facility] 08-05-2024 15:36-0500 Body mass index (BMI) [Ratio] 25.38 kg/m2 Annmarie Elkins MD Work Phone: [facility] 08-05-2024 15:36-0500 Body weight 65 kg Annmarie Elkins MD Work Phone: [facility] 08-05-2024 15:36-0500 Diastolic blood pressure 72 mm[Hg] Annmarie Elkins MD Work Phone: [facility] 08-05-2024 15:36-0500 Heart rate 91 /min Annmarie Elkins MD Work Phone: [facility] 08-05-2024 15:36-0500 SaO2% (BldA) [Mass fraction] 95 % Annmarie Elkins MD Work Phone: [facility] 08-05-2024 15:36-0500 Systolic blood pressure 118 mm[Hg] Annmarie Elkins MD Work Phone: [facility] 05-18-2024 16:31-0400 Body mass index (BMI) [Ratio] 23.56 kg/m2 Annmarie Elkins MD Work Phone: [facility] 05-18-2024 16:31-0400 Body weight 60.33 kg Annmarie Elkins MD Work Phone: [facility] 05-18-2024 16:31-0400 Diastolic blood pressure 72 mm[Hg] Annmarie Elkins MD Work Phone: [facility] 05-18-2024 16:31-0400 Heart rate 76 /min Annmarie Elkins MD Work Phone: [facility] 05-18-2024 16:31-0400 Respiratory rate 16 /min Annmarie Elkins MD Work Phone: [facility] 05-18-2024 16:31-0400 Systolic blood pressure 128 mm[Hg] Annmarie Elkins MD Work Phone: [facility] 01-25-2024 14:02-0400 Body mass index (BMI) [Ratio] 24.45 kg/m2 Tara Youngblood COSMETIC CONSULTANT.DAYTIME CAREGIVER Work Phone: [facility] 01-25-2024 14:02-0400 Body temperature 99.19 [degF] Tara Youngblood COSMETIC CONSULTANT.DAYTIME CAREGIVER Work Phone: [facility] 01-25-2024 14:02-0400 Body weight 62.6 kg Tara Youngblood COSMETIC CONSULTANT.DAYTIME CAREGIVER Work Phone: [facility] 01-25-2024 14:02-0400 Diastolic blood pressure 70 mm[Hg] Tara Youngblood COSMETIC CONSULTANT.DAYTIME CAREGIVER Work Phone: [facility] 01-25-2024 14:02-0400 Heart rate 108 /min Tara Youngblood COSMETIC CONSULTANT.DAYTIME CAREGIVER Work Phone: [facility] 01-25-2024 14:02-0400 SaO2% (BldA) [Mass fraction] 95 % Tara Youngblood COSMETIC CONSULTANT.DAYTIME CAREGIVER Work Phone: [facility] Comment on above: 3L [place] 01-25-2024 14:02-0400 Systolic blood pressure 170 mm[Hg] Tara Youngblood COSMETIC CONSULTANT.DAYTIME CAREGIVER Work Phone: [facility] 01-19-2024 23:56-0400 Body temperature 97.9 [degF] Dr. Víctor Huerta Work Phone: [facility] 01-19-2024 23:56-0400 Diastolic blood pressure 81 mm[Hg] Dr. Víctor Huerta Work Phone: [facility] 01-19-2024 23:56-0400 Heart rate 105 /min Dr. Víctor Huerta Work Phone: [facility] 01-19-2024 23:56-0400 Respiratory rate 20 /min Dr. Víctor Huerta Work Phone: [facility] 01-19-2024 23:56-0400 SaO2% (BldA) [Mass fraction] 95 % Dr. Víctor Huerta Work Phone: [facility] 01-19-2024 23:56-0400 Systolic blood pressure 174 mm[Hg] Dr. Víctor Huerta Work Phone: [facility] 01-19-2024 22:07-0400 Body height 160.[address] Víctor Huerta Work Phone: [facility] 01-19-2024 22:07-0400 Body mass index (BMI) [Ratio] 24.5 kg/m2 Dr. Víctor Huerta Work Phone: [facility] 01-19-2024 22:07-0400 Body weight 62.[address] Víctor Huerta Work Phone: [facility] 01-12-2024 11:30-0400 Heart rate 96 /min Anat PulidoBrock COSMETIC CONSULTANT.DAYTIME CAREGIVER Work Phone: [facility] 01-12-2024 11:08-0400 Body weight 61.69 kg Anat Brock COSMETIC CONSULTANT.DAYTIME CAREGIVER Work Phone: [facility] 01-12-2024 11:08-0400 Diastolic blood pressure 68 mm[Hg] Anat Brock COSMETIC CONSULTANT.DAYTIME CAREGIVER Work Phone: [facility] 01-12-2024 11:08-0400 Respiratory rate 18 /min Anat PulidoBrock COSMETIC CONSULTANT.DAYTIME CAREGIVER Work Phone: [facility] 01-12-2024 11:08-0400 SaO2% (BldA) [Mass fraction] 90 % Anat Brock COSMETIC CONSULTANT.DAYTIME CAREGIVER Work Phone: [facility] 01-12-2024 11:08-0400 Systolic blood pressure 96 mm[Hg] Anat Brock COSMETIC CONSULTANT.DAYTIME CAREGIVER Work Phone: [facility] 01-05-2024 11:24-0400 Body temperature 97.8 [degF] Dr. Víctor Huerta Work Phone: [facility] 01-05-2024 11:24-0400 Diastolic blood pressure 99 mm[Hg] Dr. Víctor Huerta Work Phone: [facility] 01-05-2024 11:24-0400 Heart rate 98 /min Dr. Víctor Huerta Work Phone: [facility] 01-05-2024 11:24-0400 Inhaled oxygen flow rate 2 L/min Dr. Víctor Huerta Work Phone: [facility] 01-05-2024 11:24-0400 Respiratory rate 18 /min Dr. Víctor Huerta Work Phone: [facility] 01-05-2024 11:24-0400 SaO2% (BldA) [Mass fraction] 92 % Dr. Víctor Huerta Work Phone: [facility] 01-05-2024 11:24-0400 Systolic blood pressure 155 mm[Hg] Dr. Víctor Huerta Work Phone: [facility] 01-05-2024 05:32-0400 Body mass index (BMI) [Ratio] 23.2 kg/m2 Dr. Víctor Huerta Work Phone: [facility] 01-05-2024 05:32-0400 Body weight 59.[address] Víctor Huerta Work Phone: [facility] 01-04-2024 11:11-0400 Body height 160.[address] Víctor Huerta Work Phone: [facility] 01-02-2024 22:48-0400 Body temperature 98.7 [degF] [facility] 01-02-2024 22:48-0400 Diastolic blood pressure 81 mm[Hg] [facility] 01-02-2024 22:48-0400 Heart rate 115 /min [facility] 01-02-2024 22:48-0400 Respiratory rate 21 /min [facility] 01-02-2024 22:48-0400 SaO2% (BldA) [Mass fraction] 93 % [facility] 01-02-2024 22:48-0400 Systolic blood pressure 102 mm[Hg] [facility] 01-02-2024 22:00-0400 Inhaled oxygen flow rate 2 L/min [facility] 01-02-2024 18:57-0400 Body height 160.02 cm [facility] 01-02-2024 18:57-0400 Body mass index (BMI) [Ratio] 23.9 kg/m2 [facility] 01-02-2024 18:57-0400 Body weight 61.23 kg [facility] 12-16-2023 14:13-0400 Body weight 61.05 kg Larry Denbow PA-C Work Phone: [facility] 12-16-2023 14:13-0400 Diastolic blood pressure 74 mm[Hg] Larry Denbow PA-C Work Phone: [facility] 12-16-2023 14:13-0400 Heart rate 130 /min Larry Denbow PA-C Work Phone: [facility] 12-16-2023 14:13-0400 Respiratory rate 18 /min Larry Denbow PA-C Work Phone: [facility] 12-16-2023 14:13-0400 SaO2% (BldA) [Mass fraction] 95 % Larry Denbow PA-C Work Phone: [facility] 12-16-2023 14:13-0400 Systolic blood pressure 124 mm[Hg] Larry Denbow PA-C Work Phone: [facility] 07-08-2023 20:38-0400 Diastolic blood pressure 68 mm[Hg] WARNING COORDINATION METEOROLOGIST-C SOILA OLDER Work Phone: [facility] 07-08-2023 20:38-0400 Respiratory rate 20 /min WARNING COORDINATION METEOROLOGIST-C SOILA OLDER Work Phone: [facility] 07-08-2023 20:38-0400 SaO2% (BldA) [Mass fraction] 97 % WARNING COORDINATION METEOROLOGIST-C SOILA OLDER Work Phone: [facility] 07-08-2023 20:38-0400 Systolic blood pressure 150 mm[Hg] WARNING COORDINATION METEOROLOGIST-C SOILA OLDER Work Phone: [facility] 07-08-2023 18:57-0400 Heart rate 103 /min WARNING COORDINATION METEOROLOGIST-C SOILA OLDER Work Phone: [facility] 07-08-2023 18:11-0400 Body height 160.02 cm WARNING COORDINATION METEOROLOGIST-C SOILA OLDER Work Phone: [facility] 07-08-2023 18:11-0400 Body mass index (BMI) [Ratio] 23.9 kg/m2 WARNING COORDINATION METEOROLOGIST-C SOILA OLDER Work Phone: 2(777)125-705926 [place] [address] 07-08-2023 18:11-0400 Body temperature 98.1 [degF] WARNING COORDINATION METEOROLOGIST-C SOILA OLDER Work Phone: 9(788)328-025126 [place] [address] 07-08-2023 18:11-0400 Body weight 61.23 kg WARNING COORDINATION METEOROLOGIST-C SOILA OLDER Work Phone: 9(138)164-187926 [place] [address] 06-30-2023 07:55-0400 Body mass index (BMI) [Ratio] 23.3 kg/m2 WARNING COORDINATION METEOROLOGIST-C SOILA OLDER Work Phone: 2(146)442-317926 [place] [address] 06-30-2023 07:55-0400 Body temperature 97.4 [degF] WARNING COORDINATION METEOROLOGIST-C SOILA OLDER Work Phone: 2(329)681-040626 [place] [address] 06-30-2023 07:55-0400 Body weight 59.87 kg WARNING COORDINATION METEOROLOGIST-C SOILA OLDER Work Phone: 3(529)337-920826 [place] [address] 06-30-2023 07:55-0400 Diastolic blood pressure 87 mm[Hg] WARNING COORDINATION METEOROLOGIST-C SOILA OLDER Work Phone: 3(133)755-306626 [place] [address] 06-30-2023 07:55-0400 Heart rate 98 /min WARNING COORDINATION METEOROLOGIST-C SOILA OLDER Work Phone: [facility] 06-30-2023 07:55-0400 Respiratory rate 20 /min WARNING COORDINATION METEOROLOGIST-C SOILA OLDER Work Phone: [facility] 06-30-2023 07:55-0400 SaO2% (BldA) [Mass fraction] 94 % WARNING COORDINATION METEOROLOGIST-C SOILA OLDER Work Phone: [facility] 06-30-2023 07:55-0400 Systolic blood pressure 150 mm[Hg] WARNING COORDINATION METEOROLOGIST-C SOILA OLDER Work Phone: [facility] 06-02-2023 15:01-0400 Body height 160.02 cm [facility] 06-02-2023 15:01-0400 Body mass index (BMI) [Ratio] 23 kg/m2 [facility] 06-02-2023 15:01-0400 Body temperature 97.2 [degF] [facility] 06-02-2023 15:01-0400 Body weight 58.96 kg [facility] 06-02-2023 15:01-0400 Diastolic blood pressure 99 mm[Hg] [facility] 06-02-2023 15:01-0400 Heart rate 100 /min [facility] 06-02-2023 15:01-0400 Respiratory rate 17 /min [facility] 06-02-2023 15:01-0400 SaO2% (BldA) [Mass fraction] 95 % [facility] 06-02-2023 15:01-0400 Systolic blood pressure 148 mm[Hg] [facility] 04-15-2023 12:39-0400 Body height 160 cm Larry Denbow PA-C Work Phone: [facility] 04-15-2023 12:39-0400 Body temperature 97.2 [degF] Larry Denbow PA-C Work Phone: [facility] 04-15-2023 12:39-0400 Body weight 59.42 kg Larry Denbow PA-C Work Phone: [facility] 04-15-2023 12:39-0400 Diastolic blood pressure 52 mm[Hg] Larry Denbow PA-C Work Phone: [facility] 04-15-2023 12:39-0400 Heart rate 104 /min Larry Denbow PA-C Work Phone: [facility] 04-15-2023 12:39-0400 Respiratory rate 16 /min Larry Denbow PA-C Work Phone: [facility] 04-15-2023 12:39-0400 SaO2% (BldA) [Mass fraction] 94 % Larry Denbow PA-C Work Phone: [facility] 04-15-2023 12:39-0400 Systolic blood pressure 104 mm[Hg] Larry Denbow PA-C Work Phone: [facility] 11-28-2022 13:00-0500 Body temperature 98.01 [degF] Soila Older COSMETIC CONSULTANT.DAYTIME CAREGIVER Work Phone: [facility] 11-28-2022 13:00-0500 Body weight 58.51 kg Soila Older COSMETIC CONSULTANT.DAYTIME CAREGIVER Work Phone: [facility] 11-28-2022 13:00-0500 Diastolic blood pressure 62 mm[Hg] Soila Older COSMETIC CONSULTANT.DAYTIME CAREGIVER Work Phone: [facility] 11-28-2022 13:00-0500 Heart rate 108 /min Soila Older COSMETIC CONSULTANT.DAYTIME CAREGIVER Work Phone: [facility] 11-28-2022 13:00-0500 Respiratory rate 16 /min Soila Older COSMETIC CONSULTANT.DAYTIME CAREGIVER Work Phone: [facility] 11-28-2022 13:00-0500 SaO2% (BldA) [Mass fraction] 96 % Soila Older COSMETIC CONSULTANT.DAYTIME CAREGIVER Work Phone: [facility] 11-28-2022 13:00-0500 Systolic blood pressure 98 mm[Hg] Soila Older COSMETIC CONSULTANT.DAYTIME CAREGIVER Work Phone: [facility] 11-26-2022 13:13-0500 Body temperature 98.8 [degF] Mariluz Verduzco PA-C Work Phone: [facility] 11-26-2022 13:13-0500 Body weight 58.7 kg Mariluz Verduzco PA-C Work Phone: [facility] 11-26-2022 13:13-0500 Diastolic blood pressure 63 mm[Hg] Mariluz Teraner PA-C Work Phone: [facility] 11-26-2022 13:13-0500 Heart rate 111 /min Mariluz Teraner PA-C Work Phone: [facility] 11-26-2022 13:13-0500 Respiratory rate 24 /min Mariluz Teraner PA-C Work Phone: [facility] 11-26-2022 13:13-0500 SaO2% (BldA) [Mass fraction] 96 % Mariluz Teraner PA-C Work Phone: [facility] 11-26-2022 13:13-0500 Systolic blood pressure 96 mm[Hg] Mariluz Teraner PA-C Work Phone: [facility] 11-25-2022 09:50-0500 Body height 160 cm Annmarie Elkins MD Work Phone: [facility] 11-25-2022 09:50-0500 Body temperature 97.5 [degF] Annmarie Elkins MD Work Phone: [facility] 11-25-2022 09:50-0500 Body weight 58.97 kg Annmarie Elkins MD Work Phone: [facility] 11-25-2022 09:50-0500 Diastolic blood pressure 60 mm[Hg] Annmarie Elkins MD Work Phone: [facility] 11-25-2022 09:50-0500 Heart rate 111 /min Annmarie Elkins MD Work Phone: [facility] 11-25-2022 09:50-0500 Respiratory rate 16 /min Annmarie Elkins MD Work Phone: [facility] 11-25-2022 09:50-0500 SaO2% (BldA) [Mass fraction] 97 % Annmarie Elkins MD Work Phone: [facility] 11-25-2022 09:50-0500 Systolic blood pressure 132 mm[Hg] Annmarie Elkins MD Work Phone: [facility] 11-11-2022 15:59-0500 Body height 160 cm Annmarie Elkins MD Work Phone: [facility] 11-11-2022 15:59-0500 Body temperature 97.7 [degF] Annmarie Elkins MD Work Phone: [facility] 11-11-2022 15:59-0500 Body weight 58.97 kg Annmarie Elkins MD Work Phone: [facility] 11-11-2022 15:59-0500 Diastolic blood pressure 56 mm[Hg] Annmarie Elkins MD Work Phone: [facility] 11-11-2022 15:59-0500 Heart rate 96 /min Annmarie Elkins MD Work Phone: [facility] 11-11-2022 15:59-0500 Respiratory rate 12 /min Annmarie Elkins MD Work Phone: [facility] 11-11-2022 15:59-0500 SaO2% (BldA) [Mass fraction] 99 % Annmarie Elkins MD Work Phone: [facility] 11-11-2022 15:59-0500 Systolic blood pressure 108 mm[Hg] Annmarie Elkins MD Work Phone: [facility] 11-07-2022 13:41-0500 Heart rate 96 /min WARNING COORDINATION METEOROLOGIST-C SOILA OLDER Work Phone: [facility] 11-07-2022 13:41-0500 Inhaled oxygen flow rate 2 L/min WARNING COORDINATION METEOROLOGIST-C SOILA OLDER Work Phone: [facility] 11-07-2022 13:41-0500 Respiratory rate 20 /min WARNING COORDINATION METEOROLOGIST-C SOILA OLDER Work Phone: [facility] 11-07-2022 13:41-0500 SaO2% (BldA) [Mass fraction] 95 % WARNING COORDINATION METEOROLOGIST-C SOILA OLDER Work Phone: [facility] 11-07-2022 09:20-0500 Body temperature 98 [degF] WARNING COORDINATION METEOROLOGIST-C SOILA OLDER Work Phone: [facility] 11-07-2022 09:20-0500 Diastolic blood pressure 85 mm[Hg] WARNING COORDINATION METEOROLOGIST-C SOILA OLDER Work Phone: [facility] 11-07-2022 09:20-0500 Systolic blood pressure 126 mm[Hg] WARNING COORDINATION METEOROLOGIST-C SOILA OLDER Work Phone: [facility] 11-07-2022 06:00-0500 Body weight 62.2 kg WARNING COORDINATION METEOROLOGIST-C SOILA OLDER Work Phone: [facility] 11-05-2022 10:20-0500 Body height 160.02 cm WARNING COORDINATION METEOROLOGIST-C SOILA OLDER Work Phone: [facility] 11-05-2022 07:21-0500 Inhaled oxygen concentration 30 % WARNING COORDINATION METEOROLOGIST-C SOILA OLDER Work Phone: [facility] 11-03-2022 08:46-0500 Body height 160 cm Annmarie Elkins MD Work Phone: [facility] 11-03-2022 08:46-0500 Body temperature 98.1 [degF] Annmarie Elkins MD Work Phone: [facility] 11-03-2022 08:46-0500 Body weight 59.88 kg Annmarie Elkins MD Work Phone: [facility] 11-03-2022 08:46-0500 Diastolic blood pressure 60 mm[Hg] Annmarie Elkins MD Work Phone: [facility] 11-03-2022 08:46-0500 Heart rate 101 /min Annmarie Elkins MD Work Phone: [facility] 11-03-2022 08:46-0500 Respiratory rate 20 /min Annmarie Elkins MD Work Phone: [facility] 11-03-2022 08:46-0500 SaO2% (BldA) [Mass fraction] 94 % Annmarie Elkins MD Work Phone: [facility] 11-03-2022 08:46-0500 Systolic blood pressure 140 mm[Hg] Annmarie Elkins MD Work Phone: [facility] 11-01-2022 23:22-0500 Body mass index (BMI) [Ratio] 23.7 kg/m2 WARNING COORDINATION METEOROLOGIST-C SOILA OLDER Work Phone: [facility] 10-29-2022 07:12-0500 Body temperature 97.7 [degF] Text Entry Free [facility] 10-29-2022 07:12-0500 Diastolic blood pressure 63 mm[Hg] Text Entry Free [facility] 10-29-2022 07:12-0500 Heart rate 69 /min Text Entry Free [facility] 10-29-2022 07:12-0500 Respiratory rate 18 /min Text Entry Free [facility] 10-29-2022 07:12-0500 SaO2% (BldA) [Mass fraction] 97 % Text Entry Free [facility] 10-29-2022 07:12-0500 Systolic blood pressure 100 mm[Hg] Text Entry Free [facility] 10-20-2022 07:01-0500 Body temperature 9 [degF] WARNING COORDINATION METEOROLOGIST-C SOILA OLDER Work Phone: [facility] 10-20-2022 07:01-0500 Diastolic blood pressure 74 mm[Hg] WARNING COORDINATION METEOROLOGIST-C SOILA OLDER Work Phone: [facility] 10-20-2022 07:01-0500 Heart rate 99 /min WARNING COORDINATION METEOROLOGIST-C SOILA OLDER Work Phone: [facility] 10-20-2022 07:01-0500 Respiratory rate 15 /min WARNING COORDINATION METEOROLOGIST-C SOILA OLDER Work Phone: [facility] 10-20-2022 07:01-0500 SaO2% (BldA) [Mass fraction] 94 % WARNING COORDINATION METEOROLOGIST-C SOILA OLDER Work Phone: [facility] 10-20-2022 07:01-0500 Systolic blood pressure 167 mm[Hg] WARNING COORDINATION METEOROLOGIST-C SOILA OLDER Work Phone: [facility] 10-19-2022 18:57-0500 Body height 160.02 cm WARNING COORDINATION METEOROLOGIST-C SOILA OLDER Work Phone: [facility] 10-19-2022 18:57-0500 Body mass index (BMI) [Ratio] 23.6 kg/m2 WARNING COORDINATION METEOROLOGIST-C SOILA OLDER Work Phone: [facility] 10-19-2022 18:57-0500 Body weight 60.32 kg WARNING COORDINATION METEOROLOGIST-C SOILA OLDER Work Phone: [facility] 09-05-2022 13:43-0500 Body mass index (BMI) [Ratio] 23.4 kg/m2 WARNING COORDINATION METEOROLOGIST-C SOILA OLDER Work Phone: [facility] 09-05-2022 13:43-0500 Body temperature 98.4 [degF] WARNING COORDINATION METEOROLOGIST-C SOILA OLDER Work Phone: [facility] 09-05-2022 13:43-0500 Body weight 60.04 kg WARNING COORDINATION METEOROLOGIST-C SOILA OLDER Work Phone: [facility] 09-05-2022 13:43-0500 Diastolic blood pressure 74 mm[Hg] WARNING COORDINATION METEOROLOGIST-C SOILA OLDER Work Phone: [facility] 09-05-2022 13:43-0500 Heart rate 93 /min WARNING COORDINATION METEOROLOGIST-C SOILA OLDER Work Phone: [facility] 09-05-2022 13:43-0500 Inhaled oxygen flow rate 2 L/min WARNING COORDINATION METEOROLOGIST-C SOILA OLDER Work Phone: [facility] 09-05-2022 13:43-0500 Respiratory rate 18 /min WARNING COORDINATION METEOROLOGIST-C SOILA OLDER Work Phone: [facility] 09-05-2022 13:43-0500 SaO2% (BldA) [Mass fraction] 96 % WARNING COORDINATION METEOROLOGIST-C SOILA OLDER Work Phone: [facility] 09-05-2022 13:43-0500 Systolic blood pressure 104 mm[Hg] WARNING COORDINATION METEOROLOGIST-C SOILA OLDER Work Phone: [facility] 08-27-2022 12:49-0500 Body temperature 98.29 [degF] Soila Older COSMETIC CONSULTANT.DAYTIME CAREGIVER Work Phone: [facility] 08-27-2022 12:49-0500 Body weight 59.88 kg Soila Older COSMETIC CONSULTANT.DAYTIME CAREGIVER Work Phone: [facility] 08-27-2022 12:49-0500 Diastolic blood pressure 80 mm[Hg] Soila Older COSMETIC CONSULTANT.DAYTIME CAREGIVER Work Phone: [facility] 08-27-2022 12:49-0500 Heart rate 80 /min Soila Older COSMETIC CONSULTANT.DAYTIME CAREGIVER Work Phone: [facility] 08-27-2022 12:49-0500 Respiratory rate 16 /min Soila Older COSMETIC CONSULTANT.DAYTIME CAREGIVER Work Phone: [facility] 08-27-2022 12:49-0500 SaO2% (BldA) [Mass fraction] 82 % Soila Older COSMETIC CONSULTANT.DAYTIME CAREGIVER Work Phone: [facility] 08-27-2022 12:49-0500 Systolic blood pressure 132 mm[Hg] Soila Older COSMETIC CONSULTANT.DAYTIME CAREGIVER Work Phone: [facility] 08-22-2022 19:41-0500 Diastolic blood pressure 91 mm[Hg] WARNING COORDINATION METEOROLOGIST-C SOILA OLDER Work Phone: [facility] 08-22-2022 19:41-0500 Heart rate 100 /min WARNING COORDINATION METEOROLOGIST-C SOILA OLDER Work Phone: [facility] 08-22-2022 19:41-0500 Respiratory rate 24 /min WARNING COORDINATION METEOROLOGIST-C SOILA OLDER Work Phone: [facility] 08-22-2022 19:41-0500 SaO2% (BldA) [Mass fraction] 93 % WARNING COORDINATION METEOROLOGIST-C SOILA OLDER Work Phone: [facility] 08-22-2022 19:41-0500 Systolic blood pressure 146 mm[Hg] WARNING COORDINATION METEOROLOGIST-C SOILA OLDER Work Phone: [facility] 08-22-2022 18:11-0500 Body temperature 97.8 [degF] WARNING COORDINATION METEOROLOGIST-C SOILA OLDER Work Phone: [facility] 08-22-2022 18:11-0500 Inhaled oxygen flow rate 2 L/min WARNING COORDINATION METEOROLOGIST-C SOILA OLDER Work Phone: [facility] 08-22-2022 16:06-0500 Body mass index (BMI) [Ratio] 23.5 kg/m2 WARNING COORDINATION METEOROLOGIST-C SOILA OLDER Work Phone: [facility] 08-22-2022 16:06-0500 Body weight 60.2 kg WARNING COORDINATION METEOROLOGIST-C SOILA OLDER Work Phone: [facility] 07-18-2022 09:56-0400 Body weight 60.33 kg Soila Older COSMETIC CONSULTANT.DAYTIME CAREGIVER Work Phone: [facility] 07-18-2022 09:56-0400 Diastolic blood pressure 72 mm[Hg] Soila Older COSMETIC CONSULTANT.DAYTIME CAREGIVER Work Phone: [facility] 07-18-2022 09:56-0400 Heart rate 72 /min Soila Older COSMETIC CONSULTANT.DAYTIME CAREGIVER Work Phone: [facility] 07-18-2022 09:56-0400 Respiratory rate 16 /min Soila Older COSMETIC CONSULTANT.DAYTIME CAREGIVER Work Phone: [facility] 07-18-2022 09:56-0400 Systolic blood pressure 128 mm[Hg] Soila Older COSMETIC CONSULTANT.DAYTIME CAREGIVER Work Phone: [facility] 05-27-2022 09:13-0400 Body height 160 cm Claudia Odonnell MD Work Phone: [facility] 05-27-2022 09:13-0400 Body weight 59.06 kg Claudia Odonnell MD Work Phone: [facility] 05-27-2022 09:13-0400 Diastolic blood pressure 72 mm[Hg] Claudia Odonnell MD Work Phone: [facility] 05-27-2022 09:13-0400 Heart rate 81 /min Claudia Odonnell MD Work Phone: [facility] 05-27-2022 09:13-0400 Systolic blood pressure 116 mm[Hg] Claudia Odonnell MD Work Phone: [facility] 04-17-2022 08:57-0400 Body weight 58.51 kg COSMETIC CONSULTANT.DAYTIME CAREGIVER Work Phone: [facility] 04-17-2022 08:57-0400 Diastolic blood pressure 72 mm[Hg] COSMETIC CONSULTANT.DAYTIME CAREGIVER Work Phone: [facility] 04-17-2022 08:57-0400 Heart rate 92 /min Older COSMETIC CONSULTANT.DAYTIME CAREGIVER Work Phone: [facility] 04-17-2022 08:57-0400 Respiratory rate 16 /min COSMETIC CONSULTANT.DAYTIME CAREGIVER Work Phone: [facility] 04-17-2022 08:57-0400 Systolic blood pressure 128 mm[Hg] COSMETIC CONSULTANT.DAYTIME CAREGIVER Work Phone: [facility] 03-03-2022 14:20-0400 Inhaled oxygen flow rate 2 L/min [facility] Work Phone: 03-03-2022 14:20-0400 SaO2% (BldA) [Mass fraction] 94 % WARNING COORDINATION METEOROLOGIST-Nichole Teague WARNING COORDINATION METEOROLOGIST Work Phone: [facility] Work Phone: 03-03-2022 14:16-0400 Diastolic blood pressure 84 mm[Hg] WARNING COORDINATION METEOROLOGIST-Nichole Teague WARNING COORDINATION METEOROLOGIST Work Phone: [facility] Work Phone: 03-03-2022 14:16-0400 Heart rate 91 /min WARNING COORDINATION METEOROLOGIST-Nichole Teague WARNING COORDINATION METEOROLOGIST Work Phone: [facility] Work Phone: 03-03-2022 14:16-0400 Respiratory rate 16 /min WARNING COORDINATION METEOROLOGIST-Nichole Teague WARNING COORDINATION METEOROLOGIST Work Phone: [facility] Work Phone: 03-03-2022 14:16-0400 Systolic blood pressure 108 mm[Hg] WARNING COORDINATION METEOROLOGIST-Nichole Teague WARNING COORDINATION METEOROLOGIST Work Phone: [facility] Work Phone: 03-03-2022 11:36-0400 Body height 160.02 cm WARNING COORDINATION METEOROLOGIST-Nichole Teague WARNING COORDINATION METEOROLOGIST Work Phone: [facility] Work Phone: 03-03-2022 11:36-0400 Body mass index (BMI) [Ratio] 23.9 kg/m2 WARNING COORDINATION METEOROLOGIST-C Theron Teague WARNING COORDINATION METEOROLOGIST Work Phone: [facility] Work Phone: 03-03-2022 11:36-0400 Body temperature 97.8 [degF] WARNING COORDINATION METEOROLOGIST-C Theron Teague WARNING COORDINATION METEOROLOGIST Work Phone: [facility] Work Phone: 03-03-2022 11:36-0400 Body weight 61.23 kg WARNING COORDINATION METEOROLOGIST-Nichole Teague WARNING COORDINATION METEOROLOGIST Work Phone: [facility] Work Phone: 01-16-2022 09:30-0400 Body mass index (BMI) [Ratio] 22.8 kg/m2 WARNING COORDINATION METEOROLOGIST-Nichole Teague WARNING COORDINATION METEOROLOGIST Work Phone: [facility] Work Phone: 01-16-2022 09:30-0400 Body temperature 98.9 [degF] WARNING COORDINATION METEOROLOGIST-Nichole Teague WARNING COORDINATION METEOROLOGIST Work Phone: [facility] Work Phone: 01-16-2022 09:30-0400 Body weight 58.51 kg WARNING COORDINATION METEOROLOGIST-Nichole Teague WARNING COORDINATION METEOROLOGIST Work Phone: [facility] Work Phone: 01-16-2022 09:30-0400 Diastolic blood pressure 82 mm[Hg] WARNING COORDINATION METEOROLOGIST-Nichole Teague WARNING COORDINATION METEOROLOGIST Work Phone: [facility] Work Phone: 01-16-2022 09:30-0400 Heart rate 108 /min WARNING COORDINATION METEOROLOGIST-Nichole Teague WARNING COORDINATION METEOROLOGIST Work Phone: [facility] Work Phone: 01-16-2022 09:30-0400 Respiratory rate 19 /min WARNING COORDINATION METEOROLOGIST-C Theron Teague WARNING COORDINATION METEOROLOGIST Work Phone: [facility] Work Phone: 01-16-2022 09:30-0400 SaO2% (BldA) [Mass fraction] 96 % WARNING COORDINATION METEOROLOGIST-C Theron Teague WARNING COORDINATION METEOROLOGIST Work Phone: [facility] Work Phone: 01-16-2022 09:30-0400 Systolic blood pressure 104 mm[Hg] WARNING COORDINATION METEOROLOGIST-C Theron Teague WARNING COORDINATION METEOROLOGIST Work Phone: [facility] Work Phone: Encounters Encounter Date Encounter Type Care Provider Facility Start: 03-10-2025 ambulatory VANESSA Mustafa y:[facility] Start: 03-10-2025 End: 03-10-2025 Subsequent hospital visit by physician Jane Farrell MD Work Phone: Gastroenterology Comment on above: Other chronic pancre atitis (HCC) [K86.1] Start: 03-07-2025 End: 03-07-2025 Telephone encounter Juan Senior APRN.DAYTIME CAREGIVER Work Phone: Gastroenterology Comment on above: Orders Start: 03-06-2025 End: 03-06-2025 Telephone encounter Raisa Jimenez RNbacteriologist medical Comment on above: Patient Question Patient Question (Qu estions Prior to ERCP) Start: 03-03-2025 End: 03-03-2025 ambulatory Jaelyn Kothari RN Gastroenterology Start: 02-26-2025 End: 02-26-2025 Emergency department patient visit Dr. Annmarie Elkins MD Work Phone: [facility] Work Phone: Start: 02-26-2025 End: 02-26-2025 Dr. Annmarie Elkins MD Work Phone: -Emergency Department Work Phone: Start: 02-10-2025 End: 02-13-2025 Telephone encounter Juan Senior APRN.DAYTIME CAREGIVER Work Phone: Gastroenterology Comment on above: Medical Clearance Start: 02-08-2025 End: 02-08-2025 Ani MORALES -[facility] Work Phone: Start: 02-08-2025 End: 02-08-[address] Annmarie Elkins MD Work Phone: [facility] Work Phone: Start: 02-03-2025 End: 03-06-2025 Refill Juan Senior APRN.DAYTIME CAREGIVER Work Phone: Gastroenterology Comment on above: Refill Request Start: 01-27-2025 End: 01-27-2025 Dr. Franco Inman MD -Emergency [facility] Work Phone: Start: 01-27-2025 End: 01-27-2025 Emergency department patient visit Franco Inman Facility:[facility] Start: 01-24-2025 End: 01-24-2025 Refill Annmarie Elkins MD Work Phone: [facility] [place] Comment on above: Refill Request Start: 01-18-2025 ambulatory Annmarie Elkins Facility:[facility] Start: 01-13-2025 End: 01-13-2025 Patient encounter procedure Soila Easton APRN.DAYTIME CAREGIVER Work Phone: [facility] [place] Comment on above: Gout, unspecified ca use, unspecified chronicity, unspecified site (Primary Dx); Calculus of pancreatic duct (HCC); Chronic recurrent pancreatitis (HCC); Chronic obstructive pulmonary disease, unspecified COPD type (HCC); Pulmonary emphysema, unspecified emphysema type (HCC); Tobacco use disorder Start: 01-13-2025 End: 01-13-2025 ambulatory SOILA EASTON Facility:[facility] Start: 01-09-2025 End: 01-12-2025 Telephone encounter Raisa Jimenez RNbacteriologist medical Comment on above: Patient Update (Pain ) Order for Pull Ups Start: 01-06-2025 End: 01-09-2025 Telephone encounter Juan Senior APRN.DAYTIME CAREGIVER Work Phone: [facility] Comment on above: Patient Question Start: 01-05-2025 End: 01-11-2025 Telephone encounter Juan Senior APRN.DAYTIME CAREGIVER Work Phone: Gastroenterology Comment on above: Patient Request Start: 01-03-2025 End: 01-03-2025 Refill Annmarie Elkins MD Work Phone: [facility] Comment on above: Refill Request Start: 01-01-2025 End: 01-01-2025 Dr. Annmarie Elkins MD Work Phone: -Emergency Department Work Phone: Start: 01-01-2025 End: 01-01-2025 Emergency department patient visit Dr. Annmarie Elkins MD Work Phone: [facility] Work Phone: Start: 12-31-2024 End: 01-18-2025 ambulatory Marge Handy RN Work Phone: NURSE X RAY TECHNICIAN Comment on above: Medication Question Refill Request Start: 12-27-2024 End: 12-28-2024 Telephone encounter Juan Senior APRN.DAYTIME CAREGIVER Work Phone: [facility] Comment on above: Patient Update Start: 12-24-2024 End: 12-24-2024 Dr. Annmarie Elkins MD Work Phone: -Emergency Department Work Phone: Start: 12-24-2024 End: 12-24-2024 Emergency department patient visit Dr. Annmarie Elkins MD Work Phone: [facility] Work Phone: Start: 12-23-2024 End: 12-23-2024 Telephone encounter Raisa Jimenez RNbacteriologist medical Comment on above: Reminder Call (Misse d call) Start: 12-23-2024 End: 12-23-2024 Ani Eduardo WARNING COORDINATION METEOROLOGISTSierraC -[facility] Work Phone: Start: 12-23-2024 End: 12-23-2024 ambulatory Annmarie Elkins Facility:[facility] Start: 12-21-2024 End: 02-20-2025 Follow-up encounter Tara Youngblood COSMETIC CONSULTANT.DAYTIME CAREGIVER Work Phone: [facility] [place] Start: 12-20-2024 End: 12-20-2024 ambulatory Carroll Leblanc RN Gastroenterology Start: 12-19-2024 End: 12-19-2024 Subsequent hospital visit by physician Xr [facility] [place] Work Phone: Radiology Comment on above: Chronic recurrent pa ncreatitis (HCC) [K86.1] Start: 12-19-2024 End: 12-19-2024 ambulatory TARA YOUNGBLOOD Facility:[facility] Start: 12-19-2024 End: 12-19-2024 Patient encounter procedure Tara Youngblood COSMETIC CONSULTANT.DAYTIME CAREGIVER Work Phone: [facility] Comment on above: Hospital discharge f ollow-up (Primary Dx); Chronic recurrent pancreatitis (HCC); Chronic obstructive pulmonary disease, unspecified COPD type (HCC); Dysphagia, unspecified type; Essential hypertension, benign; Tobacco use disorder; Smoker Start: 12-19-2024 End: 12-22-2024 Telephone encounter Annmarie Elkins MD Work Phone: [facility] [place] Comment on above: Results Start: 12-16-2024 End: 12-16-2024 Gabby SILVA [facility] Gastroenterology Work Phone: Start: 12-16-2024 End: 12-16-2024 ambulatory Annmarie Elkins Facility:[facility] Start: 12-12-2024 Non-patient / Non-visit Dr. Emily Brunner [facility] Work Phone: Start: 12-12-2024 Dr. Anastacia camargo MD -[facility] Work Phone: Start: 12-12-2024 Non-patient / Non-visit Marshal Kay nd DO -[facility] Start: 12-12-2024 Marshal Segura DO -[facility] Start: 12-11-2024 Non-patient / Non-visit Dr. Emily [facility] Work Phone: Start: 12-11-2024 Dr. Anastacia camargo [facility] Work Phone: Start: 12-10-2024 Non-patient / Non-visit Dr. Emily Bonilla [facility] Work Phone: Start: 12-10-2024 Dr. Anastacia camargo [facility] Work Phone: Start: 12-09-2024 Non-patient / Non-visit Dr. Emily Bonilla [facility] Work Phone: Start: 12-09-2024 Dr. Anastacia camargo [facility] Work Phone: Start: 12-09-2024 Non-patient / Non-visit Dr. Gonzalo Lopez own DO -[facility] Start: 12-09-2024 Dr. Gonzalo Sebastian DO -[facility] Start: 12-08-2024 Non-patient / Non-visit Dr. Cherelle Kahn [facility] Work Phone: Start: 12-08-2024 Dr. Yrn vilchis [facility] Work Phone: Start: 12-08-2024 Non-patient / Non-visit Dr. Gonzalo samuel DO -[facility] Start: 12-08-2024 Dr. Gonzalo Sebastian DO -[facility] Start: 12-07-2024 Non-patient / Non-visit Dr. Cherelle Kahn [facility] Work Phone: Start: 12-07-2024 Dr. Yrn vilchis [facility] Work Phone: Start: 12-07-2024 Non-patient / Non-visit Dr. Gonzalo Lopez own DO -[facility] Start: 12-07-2024 Dr. Gonzalo Sebastian DO -[facility] Start: 12-06-2024 Non-patient / Non-visit Dr. Cherelle davenport [facility] Work Phone: Start: 12-06-2024 Dr. Yrn vilchis [facility] Work Phone: Start: 12-06-2024 Non-patient / Non-visit Dr. Gonzalo samuel DO [facility] Start: 12-06-2024 Dr. Gonzalo Sebastian DO [facility] Start: 12-05-2024 Non-patient / Non-visit Dr. Cherelle davenport [facility] [facility] Work Phone: Start: 12-05-2024 Dr. Yrn vilchis [facility] Work Phone: Start: 12-05-2024 ambulatory [facility] Facility:[facility] [place] Start: 12-05-2024 End: 12-05-2024 Telephone encounter Juan Senior APRN.CNP Work Phone: Gastroenterology Start: 12-05-2024 Non-patient / Non-visit Dr. Emily Gaxiola MD -[facility] Start: 12-05-2024 Dr. Bridgette Gaxiola MD [facility] Start: 12-04-2024 Non-patient / Non-visit Dr. Aleta Aguayo DO [facility] Work Phone: Start: 12-04-2024 ambulatory [facility] Facility:[facility] [place] Start: 12-04-2024 End: 12-12-2024 Evaluation and management of inpatient Dr. Aleta Aguayo DO -[facility] Work Phone: Start: 12-04-2024 End: 12-12-2024 Dr. Anastacia Bonilla MD -Progressive Care Unit Work Phone: Start: 12-01-2024 End: 12-01-2024 Telephone encounter Jane Farrell MD Work Phone: Gastroenterology Comment on above: Endoscopy Call Start: 12-01-2024 End: 12-01-2024 ambulatory [facility] Facility:[facility] Start: 12-01-2024 End: 12-01-2024 Subsequent hospital visit by physician Jane Farrell MD Work Phone: Gastroenterology Comment on above: Chronic recurrent pa ncreatitis (HCC) [K86.1] Start: 11-29-2024 End: 12-02-2024 ambulatory Annmarie Elkins MD Work Phone: Internal Medicine [facility] Start: 11-25-2024 End: 11-25-2024 Telephone encounter Raisa Jimenez RNbacteriologist medical Comment on above: Medication Problem ( Medication for EGD) Start: 11-24-2024 End: 11-24-2024 Patient encounter procedure Ani Eduardo WARNING COORDINATION METEOROLOGIST-C -Pulmonary Services/Neurology Work Phone: Start: 11-24-2024 End: 11-24-2024 Ani Eduardo WARNING COORDINATION METEOROLOGIST-C -Pulmonary Services/Neurology Work Phone: Start: 11-24-2024 End: 11-24-2024 ambulatory Carroll Leblanc RN Gastroenterology Start: 11-24-2024 End: 11-24-2024 ambulatory [facility] Facility:[facility] Start: 11-21-2024 End: 11-21-2024 Refill Annmarie Elkins MD Work Phone: Internal Medicine [place] Comment on above: Refill Request Start: 11-08-2024 End: 11-09-2024 Follow-up encounter Annmarie Elkins MD Work Phone: Internal Medicine [place] Start: 11-08-2024 End: 11-09-2024 Telephone encounter Annmarie Elkins MD Work Phone: Internal Medicine [place] Comment on above: Medication Problem Start: 11-07-2024 End: 11-07-2024 Subsequent hospital visit by physician Aki 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) (Primary Dx); Chronic recurrent pancreatitis (HCC); Chronic RUQ pain; Abdominal bloating; Nausea; Gastroesophageal reflux disease without esophagitis Start: 11-02-2024 End: 11-02-2024 [facility] Start: 10-28-2024 End: 10-28-2024 Refill Annmarie Elkins MD Work Phone: Internal Medicine [place] Comment on above: Refill Request Start: 08-23-2024 End: 08-23-2024 [facility] Facility:[facility] Start: 08-23-2024 End: 08-23-2024 Subsequent hospital visit by physician Kathleen [facility] Work Phone: Cat Scan Comment on above: Alcoholic hepatitis without ascites [K70.10] Start: 08-19-2024 End: 08-19-2024 Telephone encounter Annmarie Elkins MD Work Phone: Internal Medicine [place] Comment on above: medication issue Start: 08-16-2024 End: 08-17-2024 Refill Annmarie Elkins MD Work Phone: Family Medicine [place] Comment on above: Refill Request Start: 08-15-2024 End: 08-15-2024 [facility] Facility:[facility] Start: 08-15-2024 End: 08-15-2024 Patient encounter procedure Soila Easton APRN.DAYTIME CAREGIVER Work Phone: Internal Medicine [place] Comment on above: Chronic obstructive pulmonary disease, unspecified COPD type (HCC) (Primary Dx); Generalized abdominal tenderness without rebound tenderness; Upper abdominal pain; Elevated lipase; Nausea; Alcoholic hepatitis without ascites; Alcohol use disorder, moderate, dependence (HCC); Acute pancreatitis, unspecified complication status, unspecified pancreatitis type Start: 08-12-2024 End: 08-12-2024 [facility] Start: 08-11-2024 End: 08-11-2024 Telephone encounter Annmarie Elkins MD Work Phone: Internal Medicine [place] Comment on above: Results Start: 08-10-2024 End: 08-10-2024 Subsequent hospital visit by physician Aki [facility] [place] Work Phone: Radiology Comment on above: Shortness of breath [R06.02] Start: 08-10-2024 End: 08-10-2024 Patient encounter procedure Soila [facility] GABRIELLA Work Phone: Internal Medicine [place] Comment on above: Shortness of breath (Primary Dx); Chronic obstructive pulmonary disease with acute exacerbation (HCC); Upper abdominal pain; Nausea; Urinary incontinence, unspecified type; Urinary frequency; Elevated glucose; Tobacco use disorder; Pulmonary emphysema, unspecified emphysema type (HCC) Start: 08-10-2024 End: 08-10-2024 [facility] Start: 08-10-2024 End: 08-10-2024 Telephone encounter Annmarie Elkins MD Work Phone: Internal Medicine [place] Comment on above: Results; Urinary Pro blem Start: 08-05-2024 End: 08-05-2024 [facility] Facility:[facility] Start: 08-05-2024 End: 08-05-2024 Office outpatient visit 25 minutes Annmarie Elkins MD Work Phone: Internal Medicine [place] Comment on above: Anxiety (Primary Dx) ; 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 chronic pancreatitis (HCC); Nausea; Encounter for immunization; Insomnia, unspecified type; Leukocytosis, unspecified type Start: 08-05-2024 End: 08-05-2024 [facility] Facility:[facility] Start: 07-08-2024 End: 07-08-2024 Refill Annmarie Elkins MD Work Phone: Internal Medicine [place] Comment on above: Refill Request Start: 06-21-2024 End: 06-21-2024 Telephone encounter Annmarie Elkins MD Work Phone: Internal Medicine [place] Comment on above: No Show Start: 06-15-2024 End: 06-16-2024 Refill Annmarie Elkins MD Work Phone: Internal Medicine [place] Comment on above: Refill Request Start: 06-02-2024 End: 06-02-2024 Emergency department patient visit Annmarie Elkins Facility:[facility] Start: 05-18-2024 End: 05-18-2024 Office outpatient visit 25 minutes Annmarie Elkins MD Work Phone: Internal Medicine [place] Comment on above: Anxiety (Primary Dx) ; 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 chronic pancreatitis (HCC); Chronic obstructive pulmonary disease, unspecified COPD type (HCC); Essential hypertension Start: 05-18-2024 End: 05-18-2024 ambulatory ANNMARIE ELKINS Facility:[facility] Start: 05-13-2024 End: 05-16-2024 Refill Annmarie Elkins MD Work Phone: Internal Medicine [place] Comment on above: Refill Request Start: 05-11-2024 End: 05-11-2024 ambulatory Anat Gutiérrez WARNING COORDINATION METEOROLOGIST Facility:[facility] Start: 05-04-2024 ambulatory Annmarie Elkins M Tiffani Work Phone: Internal Medicine [place] [id number] Start: 04-15-2024 Refill Annmarie Elkins M D Work Phone: Internal Medicine [place] Comment on above: Refill Request Start: 03-23-2024 Refill Annmarie Elkins M Tiffani Work Phone: Internal Medicine [place] Comment on above: Refill Request; Open ed In Error Start: 03-18-2024 Refill Annmarie Elkins M D Work Phone: Internal Medicine [place] Comment on above: Refill Request Start: 03-14-2024 Refill Annmarie Elkins M D Work Phone: Family Medicine [place] Comment on above: Refill Request Start: 02-26-2024 Refill Annmarie Elkins M Tiffani Work Phone: Internal Medicine [place] Comment on above: Refill Request Start: 02-19-2024 Refill Annmarie Back Work Phone: Internal Medicine [place] Comment on above: Refill Request Start: 02-04-2024 Telephone encounter Annmarie michelle MD Work Phone: Internal Medicine [place] Comment on above: Patient Update Start: 01-27-2024 Telephone encounter Tara Alves nael COSMETIC CONSULTANT.DAYTIME CAREGIVER Work Phone: Family [facility] [place] Comment on above: Results Start: 01-25-2024 End: 01-25-2024 Subsequent hospital visit by physician Xr [facility] [place] Work Phone: Radiology Comment on above: Pneumonia due to inf ectious organism, unspecified laterality, unspecified part of lung [J18.9] Start: 01-25-2024 End: 01-25-2024 Patient encounter procedure Tarasummer Youngblood COSMETIC CONSULTANT.DAYTIME CAREGIVER Work Phone: Family [facility] [place] Comment on above: Pneumonia due to inf ectious organism, unspecified laterality, unspecified part of lung (Primary Dx); Acute right ankle pain Start: 01-22-2024 Refill Annmarie Back Work Phone: Internal Medicine [place] Comment on above: Refill Request Start: 01-19-2024 End: 01-20-2024 Emergency department patient visit Dr. Víctor [facility]: Start: 01-18-2024 Refill Annmarie Back Work Phone: Internal Medicine [place] Comment on above: Refill Request Start: 01-12-2024 Telephone encounter Anat ventura COSMETIC CONSULTANT.DAYTIME CAREGIVER Work Phone: Internal Medicine [place] Comment on above: Medication Question Start: 01-12-2024 End: 01-12-2024 Patient encounter procedure Anat Gutiérrez COSMETIC CONSULTANT.DAYTIME CAREGIVER Work Phone: Internal Medicine [place] Comment on above: Essential hypertensi on, benign (Primary Dx); Hyponatremia; Leukocytosis, unspecified type; COPD with exacerbation (HCC); Pneumonia due to infectious organism, unspecified laterality, unspecified part of lung Start: 01-06-2024 ambulatory Annmarie Back Work Phone: [facility] Start: 01-06-2024 Telephone encounter Annmarie michelle MD Work Phone: Internal Medicine [place] Comment on above: Vaginal Problem Transition Of Care Start: 01-05-2024 Non-patient / Non-visit Dr. Cary Work Phone: [facility] Work Phone: Start: 01-04-2024 Non-patient / Non-visit Dr. Cary Work Phone: [facility] Work Phone: Start: 01-03-2024 Non-patient / Non-visit Dr. Cary Work Phone: [facility] Work Phone: Start: 01-02-2024 End: 01-05-2024 Evaluation and management of inpatient [facility] Surgical 3 Work Phone: Start: 12-16-2023 End: 12-16-2023 Patient encounter procedure Larry Talley PA-C Work Phone: Internal Medicine [place] Comment on above: Tachycardia (Primary Dx); 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 chronic pancreatitis (HCC); Hyperlipidemia, unspecified hyperlipidemia type; Insomnia, unspecified type; Vitamin D deficiency; Chronic obstructive pulmonary disease, unspecified COPD type (HCC); Prediabetes Start: 11-02-2023 Refill Pako Palumbo Work Phone: Hematology/Oncology Comment on above: Refill Request Start: 07-09-2023 Telephone encounter Larry Lee PA-C Work Phone: Internal Medicine [place] Comment on above: Patient Question Start: 07-08-2023 End: 07-08-2023 Emergency department patient visit CARMEN EASTON Work Phone: [place] [facility]-Emergency Department Work Phone: Start: 06-30-2023 End: 06-30-2023 Patient encounter procedure WARNING COORDINATION METEOROLOGIST-C SOILA EASTON Work Phone: [facility]-Pulmonary Medicine [facility] Work Phone: Start: 06-12-2023 Refill Annmarie Back Work Phone: Internal Medicine [place] Comment on above: Refill Request Start: 06-10-2023 Refill Soila Easton COSMETIC CONSULTANT .DAYTIME CAREGIVER Work Phone: Internal Medicine [place] Comment on above: Refill Request Start: 06-03-2023 ambulatory Annmarie Back Work Phone: Internal [facility] Start: 06-02-2023 End: 06-02-2023 Emergency department patient visit [facility]-Emergency Department Work Phone: Start: 06-02-2023 End: 06-02-2023 Patient encounter procedure [facility]-Cat Scan, [facility] Work Phone: Start: 05-18-2023 Refill Annmarie Back Work Phone: Internal Medicine [place] Comment on above: Refill Request Start: 05-05-2023 ambulatory Yrn Ortega Facility:[id number] Start: 04-15-2023 End: 04-15-2023 Patient encounter procedure Larry Talley PA-C Work Phone: Internal [facility] Comment on above: Arthralgia of right temporomandibular joint (Primary Dx); Insomnia, unspecified type; Nausea; Alcohol use disorder, moderate, dependence (HCC) Start: 03-24-2023 Refill Annmarie Back Work Phone: Internal Medicine [place] Comment on above: Refill Request Start: 03-10-2023 ambulatory Annmarie Back Work Phone: Internal [facility] Start: 03-09-2023 ambulatory Yrn Ortega Facility:[id number] Start: 01-28-2023 ambulatory Yrn Ortega Facility:[id number] Start: 12-31-2022 Telephone encounter Annmarie michelle MD Work Phone: Family Medicine [place] Comment on above: Medication Request Start: 12-22-2022 Patient encounter procedure Soila Easton Work Phone: [id number] Work Phone: Start: 12-22-2022 ambulatory Yrn Ortega Facility:[id number] Start: 12-03-2022 ambulatory Yrn Ortega Facility:[id number] Start: 11-28-2022 End: 11-28-2022 Patient encounter procedure Soila Easton COSMETIC CONSULTANT.DAYTIME CAREGIVER Work Phone: Internal Medicine [place] Comment on above: Prediabetes (Primary Dx) Start: 11-27-2022 Telephone encounter Annmarie michelle MD Work Phone: Internal Medicine [place] Comment on above: Erroneous encounter- disregard Results Start: 11-26-2022 Telephone encounter Mariluz pham PA-C Work Phone: Neurology Comment on above: Patient Update Start: 11-26-2022 End: 11-26-2022 Patient encounter procedure Mariluz Verduzco PA-C Work Phone: Neurology Comment on above: Neuropathy (Primary Dx); Numbness and tingling of both lower extremities; Numbness and tingling of both feet; Claustrophobia Start: 11-25-2022 End: 11-25-2022 Subsequent hospital visit by physician [facility] [place] Work Phone: Radiology Comment on above: Numbness and tinglin g of both lower extremities [R20.0, R20.2] Start: 11-25-2022 End: 11-25-2022 Patient encounter procedure Annmarie Elkins MD Work Phone: Internal Medicine [place] Comment on above: Numbness and tinglin g of both lower extremities (Primary Dx); CHUY (acute kidney injury) (HCC); Essential hypertension, benign; Hyperlipidemia, unspecified hyperlipidemia type Start: 11-12-2022 Telephone encounter Annmarie michelle MD Work Phone: Family Medicine [place] Comment on above: Results Start: 11-11-2022 End: 11-11-2022 Subsequent hospital visit by physician Xr [facility] Work Phone: Radiology Comment on above: Chronic obstructive pulmonary disease, unspecified COPD type (HCC) [J44.9] Start: 11-11-2022 End: 11-11-2022 Patient encounter procedure Annmarie Elkins MD Work Phone: Internal Medicine [place] Comment on above: CHUY (acute kidney in jury) (HCC) (Primary Dx); Chronic obstructive pulmonary disease, unspecified COPD type (HCC); Alcohol use disorder, moderate, dependence (HCC); Essential hypertension, benign; Hyperlipidemia, unspecified hyperlipidemia type; Tobacco use disorder; Reactive depression; Moderate episode of recurrent major depressive disorder (HCC); 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 chronic pancreatitis (HCC) Start: 11-07-2022 Non-patient / Non-visit WARNING COORDINATION METEOROLOGIST-C J OY OLDER Work Phone: [place] [facility] Start: 11-06-2022 Non-patient / Non-visit WARNING COORDINATION METEOROLOGIST-C J OY OLDER Work Phone: [place] [facility] Start: 11-06-2022 Non-patient / Non-visit WARNING COORDINATION METEOROLOGIST-C J OY OLDER Work Phone: [facility] Start: 11-05-2022 Non-patient / Non-visit WARNING COORDINATION METEOROLOGIST-C J OY OLDER Work Phone: [place] [facility] Start: 11-05-2022 Non-patient / Non-visit WARNING COORDINATION METEOROLOGIST-C J OY OLDER Work Phone: [facility] Start: 11-05-2022 Non-patient / Non-visit WARNING COORDINATION METEOROLOGIST-C J OY OLDER Work Phone: [facility] Start: 11-04-2022 Non-patient / Non-visit WARNING COORDINATION METEOROLOGIST-C J OY OLDER Work Phone: [place] [facility] Start: 11-04-2022 Non-patient / Non-visit WARNING COORDINATION METEOROLOGIST-C J OY OLDER [facility] Start: 11-03-2022 Non-patient / Non-visit WARNING COORDINATION METEOROLOGIST-C J OY OLDER Work Phone: [place] [facility] Start: 11-03-2022 Non-patient / Non-visit WARNING COORDINATION METEOROLOGIST-C J OY OLDER Work Phone: [facility] Start: 11-02-2022 End: 11-02-2022 Non-patient / Non-visit WARNING COORDINATION METEOROLOGIST-C SOILA OLDER Work Phone: [place] [facility] Start: 11-02-2022 Non-patient / Non-visit WARNING COORDINATION METEOROLOGIST-C J OY OLDER Work Phone: [place] [facility] Start: 11-01-2022 Non-patient / Non-visit WARNING COORDINATION METEOROLOGIST-C J OY OLDER Work Phone: [place] [facility] Start: 11-01-2022 End: 11-07-2022 Evaluation and management of inpatient WARNING COORDINATION METEOROLOGIST-C SOILA OLDER Work Phone: [facility]-Progressive Care Unit Start: 11-01-2022 Chart Update Soila Easton Work Phone: [facility] Work Phone: Start: 10-31-2022 End: 10-31-2022 Patient encounter procedure Annmarie Elkins MD Work Phone: Internal Medicine [place] Comment on above: Cellulitis of right orbital region (Primary Dx); CHUY (acute kidney injury) (HCC); Uncontrolled hypertension; Tobacco abuse, in remission; Lung mass Start: 10-24-2022 End: 10-29-2022 Evaluation and management of inpatient Varija Yalamanchali [facility] 2026 Start: 10-23-2022 Telephone encounter Jaime rodriguez MD Work Phone: [facility] Ophthalmology (Eye) Residents Comment on above: Speak to Provider Start: 10-22-2022 End: 10-22-2022 ambulatory UNKNOWN PROVIDER Facility:[facility] Start: 10-21-2022 ambulatory UNKNOWN PROVIDER Facili ty:[facility] Start: 10-21-2022 Evaluation and manag ement of inpatient [facility] Facility:[facility] Start: 10-20-2022 End: 10-24-2022 Evaluation and management of inpatient [facility] Facility:[facility] Start: 10-20-2022 Telephone encounter Jeffy price MD Work Phone: [facility] Start: 10-20-2022 End: 10-20-2022 ambulatory UNKNOWN PROVIDER Facility:[facility] Start: 10-20-2022 Emergency department patient visit UNKNOWN PROVIDER Facility:[facility] Start: 10-20-2022 End: 10-20-2022 Office outpatient visit 25 minutes Jeffery Jin MD Work Phone: [facility] Ophthalmology (Eye) Residents Comment on above: Inflammation of orbi kristopher region (Primary Dx) Start: 10-19-2022 End: 10-20-2022 Emergency department patient visit WARNING COORDINATION METEOROLOGIST-C SOILA EASTON Work Phone: [facility]-Emergency Department Start: 09-05-2022 End: 09-05-2022 Patient encounter procedure WARNING COORDINATION METEOROLOGISTMiriam EASTON [facility] Start: 08-27-2022 End: 08-27-2022 Patient encounter procedure Soila Easton COSMETIC CONSULTANT.DAYTIME CAREGIVER Work Phone: Internal Medicine [place] Comment on above: Chronic obstructive pulmonary disease, unspecified COPD type (HCC) (Primary Dx) Start: 08-22-2022 End: 08-22-2022 Emergency department patient visit WARNING COORDINATION METEOROLOGIST-Nichole EASTON Work Phone: [facility]-Emergency Department Start: 07-18-2022 End: 07-18-2022 Patient encounter procedure Soila Easton COSMETIC CONSULTANT.DAYTIME CAREGIVER Work Phone: Internal Medicine [place] Comment on above: Essential hypertensi on, benign (Primary Dx); Multiple joint pain; 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 chronic pancreatitis (HCC); Chronic obstructive pulmonary disease, unspecified COPD type (HCC); Right otitis media, unspecified otitis media type; Need for influenza vaccination Start: 06-25-2022 ambulatory Annmarei Back Work Phone: Internal Medicine [place] Start: 06-25-2022 Telephone encounter Inge doshi APRN.CNP Work Phone: OB/Gynecology Comment on above: Vaginal Problem Start: 06-13-2022 Refill Annmarie Back Work Phone: Internal Medicine [place] Comment on above: Refill Request Start: 05-28-2022 End: 05-28-2022 ambulatory [facility] Work Phone: Start: 05-28-2022 End: 05-28-2022 Patient encounter procedure [facility]-Cat Scan, [facility] Start: 05-27-2022 End: 05-27-2022 Patient encounter procedure Claudia Odonnell MD Work Phone: Gastroenterology [place] Comment on above: 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); Alcoholic hepatitis without ascites Start: 05-22-2022 Refill Annmarie Back Work Phone: Internal Medicine [place] Comment on above: Refill Request Start: 05-16-2022 Refill Soila Easton APRN, .CNP Work Phone: Internal Medicine [place] Comment on above: Refill Request Start: 05-02-2022 End: 05-02-2022 Subsequent hospital visit by physician [facility] Work Phone: Radiology Comment on above: 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) [K86.0] Start: 04-18-2022 Refill Soila Easton APRN, .CNP Work Phone: Internal Medicine [place] Comment on above: Refill Request Start: 04-18-2022 Telephone encounter Soila Easton APRN.CNP Work Phone: Family Medicine [place] Comment on above: Opened In Error Start: 04-17-2022 Telephone encounter Soila Easton APRN.CNP Work Phone: Family Medicine [place] Comment on above: Medication Question Start: 04-17-2022 End: 04-17-2022 Patient encounter procedure Soila Easton APRN.CNP Work Phone: Internal Medicine [place] Comment on above: Essential hypertensi on, benign (Primary Dx); Hyperlipidemia, unspecified hyperlipidemia type; Chronic fatigue; Alcoholic hepatitis without ascites; 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 chronic pancreatitis (HCC); Iron deficiency; Vitamin D deficiency; MICKEY (generalized anxiety disorder); Reactive depression Start: 03-21-2022 Refill Annmarie Back Work Phone: Internal Medicine [place] Comment on above: Refill Request Start: 03-21-2022 Refill Soila Easton APRN, .CNP Work Phone: Internal [facility] Comment on above: Refill Request Start: 03-11-2022 Telephone encounter Inge doshi APRN.CNP Work Phone: OB/Gynecology Comment on above: Vaginal Problem Start: 03-03-2022 End: 03-03-2022 Emergency department patient visit WARNING COORDINATION METEOROLOGIST-Nichole Teague NP Work Phone: [facility]-Emergency Department Start: 02-21-2022 Refill Soila Easton APRN, .CNP Work Phone: [facility] Comment on above: Refill Request Start: 02-11-2022 ambulatory Annmarie Back Work Phone: Internal [facility] Start: 01-16-2022 End: 01-16-2022 Patient encounter procedure CARMEN Teague NP [facility] Start: 12-27-2021 Refill Víctor Mcpherson APRN.DAYTIME CAREGIVER, DNP Work Phone: Family [facility] Comment on above: Refill Request Start: 06-11-2017 End: 06-12-2017 Ambulatory CHING MARI Facility:[facility] Procedures Date Procedure Procedure Detail Performing Clinician Start: 03-10-2025 Ercp dx collection specimen brushing/washing Jane Farrell MD Work Phone: Start: 02-26-2025 Computed tomography of abdomen and pelvis with intravenous contrast Dr. Annmarie Elkins MD Work Phone: Start: 02-26-2025 Blood count smear mcrscp w/mnl difrntl wbc count Dr. Annmarie Elkins MD Work Phone: Start: 02-26-[address] Tayla Elkins MD Work Phone: Start: 02-26-2025 Mean corpuscular hemoglobin concentration determination Dr. Annmarie Elkins MD Work Phone: Start: 02-26-2025 Nucleated red blood cell count procedure Dr. Annmarie Elkins MD Work Phone: Start: 02-26-2025 Platelet mean volume determination Dr. Annmarie Elkins MD Work Phone: Start: 02-26-[address] Annmarie Elkins MD Work Phone: Start: 01-27-2025 X-ray of chest, PA and lateral views Dr. Annmarie Elkins MD Work Phone: Start: 01-27-2025 Blood count smear mcrscp w/mnl difrntl wbc count Dr. Annmarie Elkins MD Work Phone: Start: 01-27-[address] Tayla Elkins MD Work Phone: Start: 01-27-2025 Mean corpuscular hemoglobin concentration determination Dr. Annmarie Elkins MD Work Phone: Start: 01-27-2025 Nucleated red blood cell count procedure Dr. Annmarie Elkins MD Work Phone: Start: 01-27-2025 Platelet mean volume determination Dr. Annmarie Elkins MD Work Phone: Start: 01-27-[address] Annmarie Elkins MD Work Phone: Start: 01-01-2025 Plain chest X-ray Dr. Annmarie Elkins MD Work Phone: Start: 01-01-2025 Blood count smear mcrscp w/mnl difrntl wbc count Dr. Annmarie Elkins MD Work Phone: Start: 01-01-2025 Blood disorder - initial assessment Dr. Annmarie Elkins MD Work Phone: Start: 01-01-[address] Tayla Elkins MD Work Phone: Start: 01-01-2025 Flow cytometry cell surf marker techl only 1st Dr. Annmarie Elkins MD Work Phone: Start: 01-01-2025 Mean corpuscular hemoglobin concentration determination Dr. Annmarie Elkins MD Work Phone: Start: 01-01-2025 Myelocyte percent differential count Dr. Annmarie Elkins MD Work Phone: Start: 01-01-2025 Platelet mean volume determination Dr. Annmarie Elkins MD Work Phone: Start: 01-01-[address] Annmarie Elkins MD Work Phone: Start: 12-24-2024 Blood count smear mcrscp w/mnl difrntl wbc count Dr. Annmarie Elkins MD Work Phone: Start: 12-24-[address] Tayla Elknis MD Work Phone: Start: 12-24-2024 Mean corpuscular hemoglobin concentration determination Dr. Annmarie Elkins MD Work Phone: Start: 12-24-2024 Nucleated red blood cell count procedure Dr. Annmarie Elkins MD Work Phone: Start: 12-24-2024 Platelet mean volume determination Dr. Annmarie Elkins MD Work Phone: Start: 12-24-[address] Annmarie Elkins MD Work Phone: Start: 12-12-[address] Annmarie ramirez MD Work Phone: Start: 12-12-2024 Blood count smear mcrscp w/mnl difrntl wbc count Dr. Annmarie Elkins MD Work Phone: Start: 12-12-[address] Tayla Elkins MD Work Phone: Start: 12-12-2024 Flow cytometry cell surf marker techl only 1st Dr. Annmarie Elkisn MD Work Phone: Start: 12-12-2024 Mean corpuscular hemoglobin concentration determination Dr. Annmarie Elkins MD Work Phone: Start: 12-12-2024 Myelocyte percent differential count Dr. Annmarie Elkins MD Work Phone: Start: 12-12-2024 Platelet mean volume determination Dr. Annmarie Elkins MD Work Phone: Start: 12-11-2024 Blood disorder - initial assessment Dr. Annmarie Elkins MD Work Phone: Start: 12-10-[address] Annmarie Elkins MD Work Phone: Start: 12-10-[address] Annmarie Elkins MD Work Phone: Start: 12-08-[address] Annmarie Elkins MD Work Phone: Start: 12-07-2024 SARS-CoV-2, Influenza & RSV (PCR) Dr. Jennifer Elkins MD Work Phone: Start: 12-07-2024 Dr. Annmarie Elkins MD Work Phone: Start: 12-06-2024 Nucleated red blood cell count procedure Dr. Annmarie Elkins MD Work Phone: Start: 12-05-2024 Carbon dioxide measurement, partial pressure Dr. Annmarie Elkins MD Work Phone: Start: 12-05-2024 Gases blood o2 saturation only direct esthela Dr. Annmarie Elkins MD Work Phone: Start: 12-05-2024 Measurement of partial pressure of oxygen in blood Dr. Annmarie Elkins MD Work Phone: Start: 12-05-[address] Annmarie Elkins MD Work Phone: Start: 12-05-2024 Serum inorganic phosphate measurement Dr. Annmarie Elkins MD Work Phone: Start: 12-04-2024 CT angiography of chest with contrast Dr. Annmarie Elkins MD Work Phone: Start: 12-04-[address] Annmarie Elikns MD Work Phone: Start: 12-04-2024 X-ray of chest, PA and lateral views Dr. Annmarie Elkins MD Work Phone: Start: 12-04-[address] Annmarie Elkins MD Work Phone: Start: 12-04-2024 SARS-CoV-2, Influenza & RSV (PCR) Dr. Jennifer Elkins MD Work Phone: Start: 12-04-2024 Dr. Annmarie Elkins MD Work Phone: Start: 12-01-2024 Esophagoscp rig transoral hypopharynx crv esoph Juan Senior COSMETIC CONSULTANT.DAYTIME CAREGIVER Work Phone: Start: 11-07-2024 Radiologic exam chest 2 views Annmarie michelle MD Work Phone: Start: 08-10-2024 Urnls dip stick/tablet rgnt auto w/o microscopy Soila Easton COSMETIC CONSULTANT.DAYTIME CAREGIVER Work Phone: Start: 01-25-2024 Radiologic exam chest 2 views Tara Alves son COSMETIC CONSULTANT.DAYTIME CAREGIVER Work Phone: Start: 01-19-2024 X-ray of both feet Dr. Víctor Huerta Work Phone: Start: 01-11-2024 Lipid 1996 panel - Serum or Plasma Anat Gutiérrez COSMETIC CONSULTANT.DAYTIME CAREGIVER Work Phone: Start: 01-04-2024 Investigation of transfusion reaction Dr. Víctor Huerta Work Phone: Start: 01-04-[address] Víctor Huerta Work Phone: Start: 01-02-2024 CT angiography of chest with contrast Start: 01-02-2024 Plain chest X-ray Start: 01-02-2024 Bacteria identified in Blood by Culture Dr. Víctor Huerta Work Phone: Start: 01-02-2024 SARS-CoV-2, Influenza & RSV (PCR) Start: 07-08-2023 Plain chest X-ray WARNING COORDINATION METEOROLOGIST-C SOILA Work Phone: Start: 07-08-2023 SARS-CoV-2 & FLU Antigen (Rapid) WARNING COORDINATION METEOROLOGIST-C DIOGENES Borges Work Phone: Start: 06-02-2023 Plain chest X-ray Start: 06-02-2023 CT of chest WARNING COORDINATION METEOROLOGIST-C SOILA Work Phone: Start: 06-02-2023 SARS-CoV-2 & FLU Antigen (Rapid) Start: 11-25-2022 Radex spine lumbosacral 2/3 views Annmarie Elkins MD Work Phone: Start: 11-11-2022 Radiologic exam chest 2 views Annmarie michelle MD Work Phone: Start: 11-04-2022 Plain chest X-ray WARNING COORDINATION METEOROLOGIST-C SOILA Work Phone: Start: 11-04-2022 CT of chest, abdomen and pelvis without contrast WARNING COORDINATION METEOROLOGIST-C SOILA EASTON Work Phone: Start: 11-02-2022 Plain chest X-ray WARNING COORDINATION METEOROLOGIST-C SOILA EASTON Work Phone: Start: 10-24-2022 Renal function 2000 panel - Serum or Plasma Demarco Moya Start: 10-22-2022 End: 10-22-2022 [facility] xm&eval intermediate estab pt Inflammation of orbital region Jaime Aggarwal MD Work Phone: Comment on above: Inflammation of orbital region (Primary Dx) Start: 10-21-2022 End: 10-21-2022 [facility] xm&eval intermediate estab pt Orbital inflammation Placing Judge Comment on above: Orbital inflammation (Primary Dx) Start: 10-19-2022 CT of head with contrast WARNING COORDINATION METEOROLOGIST-C SOILA EASTON Work Phone: Start: 08-22-2022 CT angiography of chest with contrast WARNING COORDINATION METEOROLOGIST-C SOILA Work Phone: Start: 08-22-2022 Plain chest X-ray WARNING COORDINATION METEOROLOGIST-C SOILA Work Phone: Start: 07-18-2022 INFLUENZA VACCINE QUADRIVALENT 6 MO - 64 YRS IM Soila Easton COSMETIC CONSULTANT.DAYTIME CAREGIVER Work Phone: Start: 05-28-2022 CT of chest Start: 05-02-2022 Us abdominal real time w/image limited Soila Easton COSMETIC CONSULTANT.DAYTIME CAREGIVER Work Phone: Start: 04-17-2022 Lipid 1996 panel - Serum or Plasma Soila Easton COSMETIC CONSULTANT.DAYTIME CAREGIVER Work Phone: Start: 03-03-2022 SARS-CoV-2 & FLU Antigen (Rapid) WARNING COORDINATION METEOROLOGIST-C Alka Teague WARNING COORDINATION METEOROLOGIST Work Phone: Start: 03-03-2022 Plain chest X-ray WARNING COORDINATION METEOROLOGIST-C Theron Teague WARNING COORDINATION METEOROLOGIST Work Phone: Start: 01-10-2021 Colonoscopy Víctor Mcpherson COSMETIC CONSULTANT.[facility], DNP Work Phone: Start: 08-28-2020 Mammography Víctor Mcpherson APRN.[facility], DNP Work Phone: Appendectomy Soila Valdes Work Phone: Bacteria identified in Blood by Culture WARNING COORDINATION METEOROLOGIST-C SOILA Work Phone: Bacteria identified in Blood by Culture WARNING COORDINATION METEOROLOGIST-C SOILA Work Phone: Cholecystectomy Soila Valdes Work Phone: Enteric Bacteriology WARNING COORDINATION METEOROLOGIST-C DIOGENES Borges Work Phone: H/O: tubal ligation History of t ubal ligation WARNING COORDINATION METEOROLOGIST-C Theron Teague WARNING COORDINATION METEOROLOGIST Work Phone: History of appendectomy History of appendectomy WARNING COORDINATION METEOROLOGIST-C Theron Teague WARNING COORDINATION METEOROLOGIST Work Phone: Respiratory Panel (PCR) WARNING COORDINATION METEOROLOGIST-C SOILA Work Phone: Respiratory syncytia l virus antigen assay WARNING COORDINATION METEOROLOGIST-C SOILA Work Phone: SARS-CoV-2 & FLU Antigen (Rapid) SARS-CoV-2 & FLU Antigen (Rapid) WARNING COORDINATION METEOROLOGIST-Nichole EASTON Work Phone: SARS-CoV-2 & FLU Antigen (Rapid) WARNING COORDINATION METEOROLOGIST-Nichole EASTON Work Phone: SARS-CoV-2 & FLU Antigen (Rapid) WARNING COORDINATION METEOROLOGISTMiriam EASTON Work Phone: Urine culture WARNING COORDINATION METEOROLOGIST-Nichole EASTON Work Phone: Plan of Treatment Date Care Activity Detail Author Start: 08-12-2030 Tetanus vaccination Tetanus (Td or Tdap) [facility] Start: 01-10-2029 Lipid panel Lipid Screening [facility] Start: 2028 PNEUMOCOCCAL (3 - PPSV23 if available, else PCV20) PNEUMOCOCCAL (3 - PPSV23 if available, else PCV20) [facility] Start: 2028 PNEUMOCOCCAL (3 - PPSV23 or PCV20) PNEUMOCOCCAL (3 - PPSV23 or PCV20) [facility] Start: 2028 [facility] Start: 12-20-2027 Diabetes Screening Diabetes Screening [facility] Start: 08-12-2027 Diabetes Screening Diabetes Screening [facility] Start: 04-17-2027 Cholesterol [Mass/volume] in Serum or Plasma Cholesterol [facility] Start: 04-17-2027 Lipid 1996 panel - Serum or Plasma Lipid Screening [facility] Start: 04-17-2027 Lipid panel Lipid Screening [facility] Start: 04-17-2027 LIPID SCREEN LIPID SCREEN [facility] Start: 01-10-2027 Diabetes Screening Diabetes Screening [facility] Start: 07-19-2026 LIPID SCREEN LIPID SCREEN [facility] Start: 02-19-2026 DIABETES SCREEN DIABETES SCREEN [facility] Start: 02-19-2026 Diabetes Screening Diabetes Screening [facility] Start: 01-13-2026 Annual PCP Team Chronic Disease Visit Annual PCP Team Chronic Disease Visit [facility] Start: 01-13-2026 BP Controlled (<130/80) BP Controlled (<130/80) [facility] Start: 01-13-2026 zzBP Controlled (<130/80) (Retired) zzBP Controlled (<130/80) (Retired) [facility] Start: 12-19-2025 Annual PCP Team Chronic Disease Visit Annual PCP Team Chronic Disease Visit [facility] Start: 12-19-2025 BP Controlled (<130/80) BP Controlled (<130/80) [facility] Start: 11-26-2025 DIABETES SCREEN DIABETES SCREEN [facility] Start: 11-11-2025 DIABETES SCREEN DIABETES SCREEN [facility] Start: 11-07-2025 Annual PCP Team Chronic Disease Visit Annual PCP Team Chronic Disease Visit [facility] Start: 11-07-2025 BP Controlled (<130/80) BP Controlled (<130/80) [facility] Start: 10-20-2025 DIABETES SCREEN DIABETES SCREEN [facility] Start: 08-15-2025 Annual PCP Team Chronic Disease Visit Annual PCP Team Chronic Disease Visit [facility] Start: 08-15-2025 BP Controlled (<130/80) BP Controlled (<130/80) [facility] Start: 08-10-2025 Annual PCP Team Chronic Disease Visit Annual PCP Team Chronic Disease Visit [facility] Start: 08-05-2025 Annual PCP Team Chronic Disease Visit Annual PCP Team Chronic Disease Visit [facility] Start: 08-05-2025 BP Controlled (<130/80) BP Controlled (<130/80) [facility] Start: 05-18-2025 Annual PCP Team Chronic Disease Visit Annual PCP Team Chronic Disease Visit [facility] Start: 05-18-2025 BP Controlled (<130/80) BP Controlled (<130/80) [facility] Start: 04-17-2025 DIABETES SCREEN DIABETES SCREEN [facility] Start: 04-17-2025 End: 04-17-2025 Patient encounter procedure 04/17/2025 1:00 PM EDT Office Visit [facility] [place] [address] [place] [address] Soila Easton APRN.DAYTIME CAREGIVER [address] [place] [address] 3 month follow up [facility] [place] Comment on above: 3 month follow up Start: 03-15-2025 End: 03-15-2025 Patient encounter procedure 03/15/2025 5:40 PM EDT Office Visit [facility] [place] [address] [place] [address] Soila Easton APRN.DAYTIME CAREGIVER [address] [place] [address] blood pressure low at ERCP procedure on 03/[address] [facility] [place] Comment on above: blood pressure low at ERCP procedure on 03/[address] [facility] Start: 03-14-2025 End: 03-14-2025 ambulatory 03/14/2025 10:00 AM EDT [facility] Neurology Pain [address] [place] [address] Emelia Matson APRN.DAYTIME CAREGIVER, DNP [address] [place], [place] [id number] Chronic recurrent pancreatitis (HCC) [K86.1]; 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]; Chronic RUQ pain [R10.11, G89.29] Neurology Pain Comment on above: Chronic recurrent pancreatitis (HCC) [K8 6.1]; 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]; Chronic RUQ pain [R10.11, G89.29] Start: 03-10-2025 End: 03-10-2025 Patient encounter procedure 03/10/2025 1:00 PM EDT Appointment Gastroenterology [address] [address] Jane Farrell MD [address] [address] Other chronic pancreatitis (HCC) [K86.1] Gastroenterology Comment on above: Other chronic pancreatitis (HCC) [K86.1] Start: 02-26-2025 End: 02-26-2025 [facility] Start: 02-06-2025 End: 02-06-2025 Patient encounter procedure 02/06/2025 9:00 AM EDT Appointment Gastroenterology [address] [address] Jane Farrell MD [address] [place] [id number] Other chronic pancreatitis (HCC) [K86.1]w/o interventions Gastroenterology Comment on above: Other chronic pancreatitis (HCC) [K86.1] w/o interventions Start: 01-30-2025 End: 01-30-2025 Anesthesia consultation 01/30/2025 11:10 AM EDT PAT Pre Anesthesia [address] [place] [address] pre procedure 02/06 Pre Anesthesia Comment on above: pre procedure 02/06 Start: 01-27-2025 [facility] Start: 01-27-2025 [facility] Start: 01-24-2025 Annual PCP Team Chronic Disease Visit Annual PCP Team Chronic Disease Visit [facility] Start: 01-13-2025 End: 01-13-2025 Patient encounter procedure [facility] [place] Comment on above: multiple concerns multiple concerns. S ee TE from 01/09/25. Start: 01-11-2025 Annual PCP Team Chronic Disease Visit Annual PCP Team Chronic Disease Visit [facility] Start: 01-11-2025 BP Controlled (<130/80) BP Controlled (<130/80) [facility] Start: 01-05-2025 End: 01-05-2025 ambulatory 01/05/2025 1:00 PM EDT [facility] Neurology Pain [address] [place] [address] Emelia Matson APRN.DAYTIME CAREGIVER, DNP [address] [place], [place] [id number] Chronic recurrent pancreatitis (HCC) [K86.1]; 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]; Chronic RUQ pain [R10.11, G89.29] Neurology Pain Comment on above: Chronic recurrent pancreatitis (HCC) [K8 6.1]; 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]; Chronic RUQ pain [R10.11, G89.29] Start: 01-02-2025 End: 01-02-2025 Patient encounter procedure 01/02/2025 8:30 AM EDT Office Visit Neurology Pain [address] [place] [address] [place] [address] [place] [address] [facility]) Neurology Pain Comment on above: [facility]SULT TO [facility] (CHR ONIC PAIN) Start: 01-01-2025 [facility] Start: 01-01-2025 [facility] Start: 12-27-2024 End: 12-27-2024 Patient encounter procedure 12/27/2024 1:00 PM EDT Appointment Gastroenterology [address] [place] [id number] Jane Farrell MD [address] [place] [phone] Other chronic pancreatitis (HCC) [K86.1] Gastroenterology Comment on above: Other chronic pancreatitis (HCC) [K86.1] Start: 12-24-2024 [facility] Start: 12-19-2024 End: 03-20-2025 CBC W Auto Differential panel - Blood [facility] Comment on above: Expected: 12/19/2024, Expires: Start: 12-19-2024 End: 03-20-2025 Comprehensive metabolic 2000 panel - Serum or Plasma [facility] Comment on above: Expected: 12/19/2024, Expires: Start: 12-19-2024 End: 03-20-2025 Lipase [Enzymatic activity/volume] in Serum or Plasma [facility] Comment on above: Expected: 12/19/2024, Expires: 5 Start: 12-16-2024 Patient referral [facility] Work Phone: Start: 12-15-2024 Annual PCP Team Chronic Disease Visit Annual PCP Team Chronic Disease Visit [facility] Start: 12-15-2024 BP Controlled (<130/80) BP Controlled (<130/80) [facility] Start: 12-12-2024 Patient discharge [facility] Start: 12-12-2024 End: 12-12-2024 Patient encounter procedure 12/12/2024 11:00 AM EDT Office Visit [facility] [place] [address] [place] [address] Annmarie Elkins MD [address] [place] [address] 1 Month F/U [facility] [place] Comment on above: 1 Month F/U Start: 12-10-2024 Respiratory Culture Respiratory Culture [facility] Start: 12-09-2024 Referral to gastroenterology service [facility] Start: 12-08-2024 Videoswallow [facility] Start: 12-08-2024 Inhalation therapy procedure [facility] Start: 12-07-2024 Speech therapy assessment [facility] Start: 12-07-2024 Continuous pulse oximetry [facility] Start: 12-07-2024 [facility] Start: 12-05-2024 Referral to service [facility] Start: 12-05-2024 Consultation [facility] Start: 12-05-2024 Continuous positive airway pressure ventilation treatment [facility] Start: 12-04-2024 Following clinical pathway protocol [facility] Start: 12-04-2024 Ambulation without limitation [facility] Start: 12-04-2024 Assessment of risk of venous thromboembolism [facility] Start: 12-04-2024 Bacteria identified in Sputum by Culture [facility] Start: 12-04-2024 Catheterization of vein [facility] Start: 12-04-2024 Incentive spirometry [facility] Start: 12-04-2024 Insertion of catheter into peripheral vein [facility] Start: 12-04-2024 Measuring intake and output [facility] Start: 12-04-2024 Oxygen therapy [facility] Start: 12-04-2024 Providing care according to standard [facility] Start: 12-04-2024 Referral to service [facility] Start: 12-04-2024 Tobacco use cessation education [facility] Start: 12-04-2024 [facility] Start: 12-04-2024 Respiratory pathogens DNA and RNA panel - Respiratory specimen by KANDY with probe detection [facility] Start: 12-04-2024 Verification routine [facility] Start: 12-04-2024 Admission procedure [facility] Start: 12-04-2024 Hospital admission, emergency, from emergency room, medical nature [facility] Start: 12-04-2024 End: 12-04-2024 [facility] Start: 12-01-2024 End: 12-01-2024 Patient encounter procedure 12/01/2024 10:00 AM EST Appointment Gastroenterology [address] [address] Jane Farrell MD [address] [place] [phone] Chronic recurrent pancreatitis (HCC) [K86.1] Gastroenterology Comment on above: Chronic recurrent pancreatitis (HCC) [K8 6.1] Start: 11-29-2024 End: 02-28-2025 Lipid 1996 panel - Serum or Plasma LIPID PANEL BASIC Lab Routine Hyperlipidemia Expected: 11/29/2024, Expires: 02/28/2025 [facility] Work Phone: Comment on above: Expected: 11/29/2024, Expires: Start: 11-07-2024 End: 11-07-2024 Patient encounter procedure [facility] [place] Comment on above: 3 month follow up 3 month follow up-di ruiuss elevated WBC Start: 11-02-2024 End: 11-02-2024 Patient encounter procedure 11/02/2024 2:00 PM EST Office Visit Gastroenterology [address] [address] Juan Senior APRN.DAYTIME CAREGIVER [address] [place] [address] Chronic recurrent pancreatitis (HCC) [K86.1]; 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] Gastroenterology Comment on above: Chronic recurrent pancreatitis (HCC) [K8 6.1]; 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] Start: 08-23-2024 End: 08-23-2024 Patient encounter procedure Cat Scan Comment on above: Alcoholic hepatitis without ascites [K70 .10] Alcoholic hepatitis without ascites [K70.10]; Acute pancreatitis, unspecified complication status, unspecified pancreatitis type [K85.90]; Upper abdominal pain [R10.10]; Nausea [R11.0]; Elevated lipase [R74.8]; Generalized abdominal tenderness without rebound tenderness [R10.817] Start: 08-15-2024 End: 08-15-2024 Patient encounter procedure [facility] [place] Comment on above: Follow up SOB Upper abdominal pain [R10.10] Start: 08-10-2024 End: 11-09-2024 Amylase [Enzymatic activity/volume] in Serum or Plasma AMYLASE Lab Routine Upper abdominal pain Nausea Expected: 08/10/2024, Expires: 11/09/2024 [facility] Comment on above: Expected: 08/10/2024, Expires: Start: 08-10-2024 End: 11-09-2024 Comprehensive metabolic 2000 panel - Serum or Plasma COMPREHENSIVE METABOLIC PANEL Lab Routine Upper abdominal pain Nausea Expected: 08/10/2024, Expires: 11/09/2024 [facility] Comment on above: Expected: 08/10/2024, Expires: Start: 08-10-2024 End: 11-09-2024 Hemoglobin A1c in Blood HEMOGLOBIN A1C Lab Routine Urinary incontinence, unspecified type Urinary frequency Elevated glucose Expected: 08/10/2024, Expires: 11/09/2024 [facility] Comment on above: Expected: 08/10/2024, Expires: Start: 08-10-2024 End: 11-09-2024 Lipase [Enzymatic activity/volume] in Serum or Plasma LIPASE Lab Routine Upper abdominal pain Nausea Expected: 08/10/2024, Expires: 11/09/2024 [facility] Work Phone: Comment on above: Expected: 08/10/2024, Expires: Start: 08-05-2024 End: 11-04-2024 CBC W Auto Differential panel - Blood [facility] Work Phone: Comment on above: Expected: 08/05/2024, Expires: Start: 07-13-2024 End: 07-13-2024 Patient encounter procedure 07/13/2024 3:00 PM EDT Office Visit [facility] [place] [address] [place] [address] Soila Easton APRN.DAYTIME CAREGIVER [address] [place] [address] medication f/u [facility] [place] Comment on above: medication f/u Start: 07-05-2024 HPV TESTING HPV TESTING [facility] Start: 07-05-2024 Screening for malignant neoplasm of cervix HPV Testing [facility] Start: 06-21-2024 End: 06-21-2024 Patient encounter procedure 06/21/2024 2:00 PM EDT Office Visit [facility] [place] [address] [place] [address] Annmarie Elkins MD [address] [place] [address] med check [facility] [place] Comment on above: med check Start: 05-29-2024 Covid-19 Vaccine ( season) Covid-19 Vaccine ( season) [facility] Start: 05-29-2024 Covid-19 Vaccine ( season) Covid-19 Vaccine () [facility] Start: 05-29-2024 Influenza vaccination [facility] Start: 05-23-2024 End: 05-23-2024 Patient encounter procedure 05/23/2024 1:00 PM EDT Office Visit Internal Medicine [place] [address] [place] [address] Soila Easton APRN.DAYTIME CAREGIVER [address] [place] [address] medication f/u [facility] [place] Comment on above: medication f/u Start: 05-17-2024 End: 05-17-2024 Patient encounter procedure 05/17/2024 4:00 PM EDT Office Visit Internal Medicine [place] [address] [place] [address] Annmarie Elkins MD [address] [place] [address] medication follow up Internal [facility] Comment on above: medication follow up Start: 05-10-2024 End: 05-10-2024 Patient encounter procedure 05/10/2024 1:40 PM EDT Office Visit Internal Medicine [place] [address] [place] [address] Soila Easton COSMETIC CONSULTANT.DAYTIME CAREGIVER [address] [place] [address] 3 month follow up [facility] Internal [facility] Comment on above: 3 month follow up [facility] Start: 04-21-2024 End: 04-21-2024 Patient encounter procedure 04/21/2024 8:20 AM EDT Office Visit Internal [facility] [address] [place] [address] Soila Easton, COSMETIC CONSULTANT.DAYTIME CAREGIVER [address] [place] [address] 3 [facility] Comment on above: 3 month follow up [facility] Start: 04-15-2024 ANNUAL PCP TEAM CHRONIC DISEASE VISIT ANNUAL PCP TEAM CHRONIC DISEASE VISIT [facility] Start: 04-15-2024 BP CONTROLLED (<130/80) BP CONTROLLED (<130/80) [facility] Start: 03-26-2024 DIABETES SCREEN DIABETES SCREEN [facility] Start: 03-18-2024 End: 03-18-2024 Patient encounter procedure 03/18/2024 1:20 PM EDT Office Visit Internal [facility] [address] [place] [address] Soila Easton, COSMETIC CONSULTANT.DAYTIME CAREGIVER [address] [place] [address] 3 [facility] Comment on above: 3 month follow up [facility] Start: 01-25-2024 End: 01-25-2024 Patient encounter procedure 01/25/2024 1:20 PM EDT Office Visit [facility] [place] [address] [place] [address] Tara Youngblood, COSMETIC CONSULTANT.DAYTIME CAREGIVER [address] [place] [address] [facility] ER follow up, acute pain right foot and ankle, no clot [facility] [place] Comment on above: [facility] ER follow up, acute pain right foot and ankle, no clot Start: 01-19-2024 [facility] Start: 01-19-2024 End: 04-19-2024 Basic metabolic 2000 panel - Serum or Plasma BASIC METABOLIC PANEL Lab Routine Hyponatremia Expected: 01/19/2024 (Approximate), Expires: 04/19/2024 [facility] Work Phone: Comment on above: Expected: 01/19/2024 (Approximate), Expi res: 04/19/2024 Start: 01-19-2024 End: 04-19-2024 CBC W Auto Differential panel - Blood COMPLETE BLOOD COUNT AND DIFFERENTIAL Lab Routine Leukocytosis, unspecified type Expected: 01/19/2024 (Approximate), Expires: 04/19/2024 [facility] Work Phone: Comment on above: Expected: 01/19/2024 (Approximate), Expi res: 04/19/2024 Start: 01-11-2024 Colonoscopy COLONOSCOPY [facility] Start: 01-11-2024 COLORECTAL CANCER SCREENING COLORECTAL CANCER SCREENING [facility] Start: 01-11-2024 Screening for malignant neoplasm of colon [facility] Start: 01-05-2024 Patient discharge [facility] Start: 01-05-2024 Blood chemistry [facility] Start: 01-04-2024 Respiratory microbial culture Respiratory Culture [facility] Start: 01-04-2024 [facility] Start: 01-03-2024 Respiratory secretion precautions [facility] Start: 01-02-2024 Assessment of risk of venous thromboembolism [facility] Start: 01-02-2024 Inhalation therapy procedure [facility] Start: 01-02-2024 Insertion of catheter into peripheral vein [facility] Start: 01-02-2024 Introduction of urinary catheter [facility] Start: 01-02-2024 Measuring intake and output [facility] Start: 01-02-2024 Oxygen therapy [facility] Start: 01-02-2024 Providing care according to standard [facility] Start: 01-02-2024 Provision of activity privileges [facility] Start: 01-02-2024 Referral to service [facility] Start: 01-02-2024 Tobacco use cessation education [facility] Start: 01-02-2024 [facility] Start: 01-02-2024 Following clinical pathway protocol [facility] Start: 01-02-2024 Legionella pneumophila Ag [Presence] in Urine [facility] Start: 01-02-2024 Respiratory pathogens DNA and RNA panel - Respiratory specimen by KANDY with probe detection [facility] Start: 01-02-2024 End: 01-02-2024 Streptococcus pneumoniae antigen assay [facility] Start: 01-02-2024 Hospital admission, emergency, from emergency room, medical nature [facility] Start: 01-02-2024 Admission procedure [facility] Start: 01-02-2024 Verification routine [facility] Start: 01-02-2024 End: 01-02-2024 Blood culture [facility] Start: 01-02-2024 [facility] Start: 01-02-2024 Bacteria identified in Blood by Culture Blood Culture [facility] Start: 01-02-2024 Legionella Antigen Legionella Antigen [facility] Start: 01-02-2024 Streptococcus pneumoniae Antigen (M Streptococcus pneumoniae Antigen (M [facility] Start: 12-27-2023 ANNUAL PCP TEAM CHRONIC DISEASE VISIT ANNUAL PCP TEAM CHRONIC DISEASE VISIT [facility] Start: 12-16-2023 End: 03-16-2024 25-hydroxyvitamin D3 [Mass/volume] in Serum or Plasma VITAMIN D 25 HYDROXY Lab Routine Vitamin D deficiency Expected: 12/16/2023, Expires: 03/16/2024 [facility] Work Phone: Comment on above: Expected: 12/16/2023, Expires: Start: 12-16-2023 End: 03-16-2024 CBC W Auto Differential panel - Blood CBC + DIFF Lab Routine 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 chronic pancreatitis (HCC) Tachycardia Hyperlipidemia, unspecified hyperlipidemia type Insomnia, unspecified type Vitamin D deficiency Chronic obstructive pulmonary disease, unspecified COPD type (HCC) Prediabetes Expected: 12/16/2023, Expires: 03/16/2024 [facility] Work Phone: Comment on above: Expected: 12/16/2023, Expires: 4 Start: 12-16-2023 End: 03-16-2024 Comprehensive metabolic 2000 panel - Serum or Plasma COMP METABOLIC PANEL Lab Routine 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 chronic pancreatitis (HCC) Tachycardia Hyperlipidemia, unspecified hyperlipidemia type Insomnia, unspecified type Vitamin D deficiency Chronic obstructive pulmonary disease, unspecified COPD type (HCC) Prediabetes Expected: 12/16/2023, Expires: 03/16/2024 [facility] Work Phone: Comment on above: Expected: 12/16/2023, Expires: 4 Start: 12-16-2023 End: 03-16-2024 Lipid 1996 panel - Serum or Plasma LIPID PANEL BASIC Lab Routine Hyperlipidemia, unspecified hyperlipidemia type Expected: 12/16/2023, Expires: 03/16/2024 [facility] Work Phone: Comment on above: Expected: 12/16/2023, Expires: 4 Start: 11-29-2023 ANNUAL PCP TEAM CHRONIC DISEASE VISIT ANNUAL PCP TEAM CHRONIC DISEASE VISIT [facility] Start: 11-29-2023 BP CONTROLLED (<130/80) BP CONTROLLED (<130/80) [facility] Start: 11-27-2023 BP CONTROLLED (<130/80) BP CONTROLLED (<130/80) [facility] Start: 11-25-2023 ANNUAL PCP TEAM CHRONIC DISEASE VISIT ANNUAL PCP TEAM CHRONIC DISEASE VISIT [facility] Start: 11-11-2023 ANNUAL PCP TEAM CHRONIC DISEASE VISIT ANNUAL PCP TEAM CHRONIC DISEASE VISIT [facility] Start: 11-11-2023 BP CONTROLLED (<130/80) BP CONTROLLED (<130/80) [facility] Start: 10-20-2023 Basic metabolic 2000 panel - Serum or Plasma Basic Metabolic Panel [facility] Start: 08-31-2023 Pneumococcal Vaccine: 50+ (3 of 3 - PCV20 or PCV21) Pneumococcal Vaccine: 50+ (3 of 3 - PCV20 or PCV21) [facility] Start: 08-27-2023 ANNUAL PCP TEAM CHRONIC DISEASE VISIT ANNUAL PCP TEAM CHRONIC DISEASE VISIT [facility] Start: 07-18-2023 ANNUAL PCP TEAM CHRONIC DISEASE VISIT ANNUAL PCP TEAM CHRONIC DISEASE VISIT [facility] Start: 07-18-2023 BP CONTROLLED (<130/80) BP CONTROLLED (<130/80) [facility] Start: 07-08-2023 [facility] Start: 06-30-2023 Patient referral [facility] Work Phone: Start: 06-02-2023 [facility] Start: 06-02-2023 CT of chest Low Dose CT Lung Screening [facility] Start: 06-02-2023 CT THORAX LUNG CANCER SCR C- CT THORAX LUNG CANCER SCR C- [facility] Start: 05-29-2023 Covid-19 Vaccine () Covid-19 Vaccine () [facility] Start: 05-29-2023 Influenza vaccination [facility] Start: 05-27-2023 BP CONTROLLED (<130/80) BP CONTROLLED (<130/80) [facility] Start: 2023 RSV Vaccine (1 - 1-dose 60+ series) RSV Vaccine (1 - 1-dose 60+ series) [facility] Start: 2023 RSV Vaccine (1 - Risk 60-74 years 1-dose series) RSV Vaccine (1 - Risk 60-74 years 1-dose series) [facility] Start: 04-17-2023 ANNUAL PCP TEAM CHRONIC DISEASE VISIT ANNUAL PCP TEAM CHRONIC DISEASE VISIT [facility] Start: 04-17-2023 BP CONTROLLED (<130/80) BP CONTROLLED (<130/80) [facility] Start: 04-17-2023 COVID-19 VACCINE (3 - Booster for Pfizer series) COVID-19 VACCINE (3 - Booster for Pfizer series) [facility] Comment on above: Postponed from 12/27/2021 (Declined at t his time) Postponed from 09/23 (Declined at this time) Start: 04-17-2023 COVID-19 VACCINE (3 - Pfizer series) COVID-19 VACCINE (3 - Pfizer series) [facility] Comment on above: Postponed from 09/23/2021 (Declined at t his time) Start: 04-17-2023 HIV SCREENING HIV SCREENING [facility] Comment on above: Postponed from 1981 (Declined at t his time) Start: 04-17-2023 PAP TESTING PAP TESTING [facility] Comment on above: Postponed from 07/05/2020 (Declined at t his time) Start: 04-17-2023 SHINGRIX VACCINE (1 of 2) SHINGRIX VACCINE (1 of 2) [facility] Comment on above: Postponed from 2013 (Declined at t his time) Start: 04-15-2023 End: 06-15-2023 Hepatic function 2000 panel - Serum or Plasma [facility] Work Phone: Comment on above: Expected: 04/15/2023, Expires: Start: 04-08-2023 Zoledronic acid therapy ALPHA-1 ANTITRYPSIN DEFICIENCY SCREENING [facility] Comment on above: Postponed from 1993 (Declined at t his time) Start: 03-10-2023 End: 05-10-2023 Lipid 1996 panel - Serum or Plasma LIPID PANEL BASIC Lab Routine Hyperlipidemia Expected: 03/10/2023, Expires: 05/10/2023 [facility] Work Phone: Comment on above: Expected: 03/10/2023, Expires: Start: 03-09-2023 EPVPLASTIC, Provider: Yrn Ortega, Status: Pen, Time: 1:15 PM EPVPLASTIC, Provider: Yrn Ortega, Status: Pen, Time: 1:15 PM [id number] l 3200 Work Phone: Start: 02-28-2023 End: 04-30-2023 Hemoglobin A1c in Blood HGB A1C Lab Routine Prediabetes Expected: 02/28/2023 (Approximate), Expires: 04/30/2023 [facility] Work Phone: Comment on above: Expected: 02/28/2023 (Approximate), Expi res: 04/30/2023 Start: 01-28-2023 NPVPLASTIC, Provider: Yrn Ortega, Status: Pen, Time: 2:00 PM NPVPLASTIC, Provider: Yrn Ortega, Status: Pen, Time: 2:00 PM [id number] l 3200 Work Phone: Start: 12-15-2022 End: 12-15-2022 Patient encounter procedure 12/15/2022 Office Visit Family [facility] Lalito Hoskins MD [address] [place] [address], [address] [place] [id number] [facility] Start: 12-03-2022 NPVPLASTIC, Provider: Yrn Ortega, Status: Pen, Time: 3:30 PM NPVPLASTIC, Provider: Yrn Ortega, Status: Pen, Time: 3:30 PM [id number] Moore Work Phone: Start: 12-03-2022 Patient encounter procedure [facility] [place] Start: 11-28-2022 End: 01-28-2023 Basic metabolic 2000 panel - Serum or Plasma BASIC METABOLIC PNL Lab Routine Prediabetes Expected: 11/28/2022, Expires: 01/28/2023 [facility] Work Phone: Comment on above: Expected: 11/28/2022, Expires: 3 Start: 11-27-2022 End: 01-27-2023 Urinalysis complete panel - Urine URINALYSIS, WITH MICROSCOPIC Lab Routine CHUY (acute kidney injury) (HCC) Expected: 11/27/2022, Expires: 01/27/2023 [facility] Work Phone: Comment on above: Expected: 11/27/2022, Expires: 3 Start: 11-26-2022 End: 01-26-2023 Hemoglobin A1c in Blood [facility] Work Phone: Comment on above: Expected: 11/26/2022, Expires: 3 Start: 11-26-2022 End: 01-26-2023 VITAMIN B1 (THIAMINE), WHOLE BLOOD [facility] Work Phone: Comment on above: Expected: 11/26/2022, Expires: 3 Start: 11-26-2022 End: 01-26-2023 VITAMIN B5(PANTOTHENIC AID) BIOASSAY [facility] Work Phone: Comment on above: Expected: 11/26/2022, Expires: Start: 11-25-2022 End: 01-25-2023 Cobalamin (Vitamin B12) [Mass/volume] in Serum or Plasma [facility] Work Phone: Comment on above: Expected: 11/25/2022, Expires: Start: 11-25-2022 End: 01-25-2023 Renal function 2000 panel - Serum or Plasma [facility] Work Phone: Comment on above: Expected: 11/25/2022, Expires: Start: 11-11-2022 End: 01-11-2023 Basic metabolic 2000 panel - Serum or Plasma [facility] Work Phone: Comment on above: Expected: 11/11/2022, Expires: Start: 11-11-2022 End: 11-11-2022 Patient encounter procedure 11/11/2022 Office Visit Ophthalmology Deny Dumont MD [address] [place] [address] [facility] Ophthalmology (Eye) [facility] Start: 11-07-2022 Patient discharge [facility] Start: 11-06-2022 End: 11-06-2022 Removal of urinary catheter [facility] Start: 11-06-2022 Care planning and problem solving actions [facility] Start: 11-06-2022 [facility] Start: 11-05-2022 Referral to occupational therapist [facility] Start: 11-05-2022 Referral to service [facility] Start: 11-04-2022 Care planning and problem solving actions [facility] Start: 11-04-2022 End: 11-04-2022 Blood culture [facility] Start: 11-04-2022 Referral to brickmason helper [facility] Start: 11-04-2022 [facility] Start: 11-04-2022 [facility] Start: 11-03-2022 Care planning and problem solving actions [facility] Start: 11-03-2022 Oxygen therapy [facility] Start: 11-02-2022 Following clinical pathway protocol [facility] Start: 11-02-2022 Physiotherapy of chest [facility] Start: 11-02-2022 Consultation [facility] Start: 11-02-2022 Continuous pulse oximetry [facility] Start: 11-02-2022 Dual pressure spontaneous ventilation support [facility] Start: 11-02-2022 Inhalation therapy procedure [facility] Start: 11-01-2022 Admission procedure [facility] Start: 10-25-2022 End: 10-26-2023 Phenylephrine 0.25% Topical (Preparation H) 1 application Ointment Every 8 Hours ; OintmentDOSE = 1 application(s) Topical Every 8 Hours, PRN HemorrhoidsApply to Buttock Start: 25-Oct-2022 End: 25-Oct-2023 Ordered: 25-Oct-2022 Laishatar, Justyn Intent [facility] Start: 10-24-2022 End: 10-25-2023 [facility] Start: 10-19-2022 Blood culture [facility] Start: 08-22-2022 [facility] Start: 07-18-2022 End: 09-17-2022 DALLAS BY IFA SCREEN [facility] Work Phone: Comment on above: Expected: 07/18/2022, Expires: 2 Start: 07-18-2022 End: 09-17-2022 C reactive protein [Mass/volume] in Serum or Plasma [facility] Work Phone: Comment on above: Expected: 07/18/2022, Expires: 2 Start: 07-18-2022 End: 09-17-2022 Erythrocyte sedimentation rate [facility] Work Phone: Comment on above: Expected: 07/18/2022, Expires: 2 Start: 07-18-2022 End: 09-17-2022 Rheumatoid factor [Units/volume] in Serum or Plasma [facility] Work Phone: Comment on above: Expected: 07/18/2022, Expires: 2 Start: 06-28-2022 Influenza vaccination Influenza Vaccine (#1) [facility] Start: 05-29-2022 Influenza vaccination [facility] Start: 04-17-2022 End: 06-17-2022 25-hydroxyvitamin D3 [Mass/volume] in Serum or Plasma [facility] Work Phone: Comment on above: Expected: 04/17/2022, Expires: 2 Start: 04-17-2022 End: 06-17-2022 CBC W Auto Differential panel - Blood [facility] Work Phone: Comment on above: Expected: 04/17/2022, Expires: 2 Start: 04-17-2022 End: 06-17-2022 Comprehensive metabolic 2000 panel - Serum or Plasma [facility] Work Phone: Comment on above: Expected: 04/17/2022, Expires: 2 Start: 04-17-2022 End: 06-17-2022 Ferritin [Mass/volume] in Serum or Plasma [facility] Work Phone: Comment on above: Expected: 04/17/2022, Expires: 2 Start: 04-17-2022 End: 06-17-2022 Iron and Iron binding capacity panel - Serum or Plasma [facility] Work Phone: Comment on above: Expected: 04/17/2022, Expires: 2 Start: 04-17-2022 End: 06-17-2022 Lipid 1996 panel - Serum or Plasma [facility] Work Phone: Comment on above: Expected: 04/17/2022, Expires: 2 Start: 04-17-2022 End: 06-17-2022 Thyrotropin [Units/volume] in Serum or Plasma [facility] Work Phone: Comment on above: Expected: 04/17/2022, Expires: 2 Start: 03-26-2022 ANNUAL PCP TEAM CHRONIC DISEASE VISIT ANNUAL PCP TEAM CHRONIC DISEASE VISIT [facility] Start: 03-26-2022 BP CONTROLLED (<130/80) BP CONTROLLED (<130/80) [facility] Start: 03-03-2022 [facility] Work Phone: Start: 02-11-2022 End: 04-13-2022 Basic metabolic 2000 panel - Serum or Plasma BASIC METABOLIC PNL Lab Routine Essential hypertension, benign Expected: 02/11/2022, Expires: 04/13/2022 [facility] Work Phone: Comment on above: Expected: 02/11/2022, Expires: 2 Start: 02-11-2022 End: 04-13-2022 SCHEDULE LAB TESTING SCHEDULE LAB TESTING Lab Routine Expected: 02/11/2022, Expires: 04/13/2022 [facility] Work Phone: Comment on above: Expected: 02/11/2022, Expires: 2 Start: 09-23-2021 COVID-19 Vaccine (3 - Booster for Pfizer series) COVID-19 Vaccine (3 - Booster for Pfizer series) [facility] Start: 09-23-2021 COVID-19 VACCINE (3 - Pfizer series) COVID-19 VACCINE (3 - Pfizer series) [facility] Start: 08-28-2021 Mammography [facility] Start: 08-28-2021 Screening for malignant neoplasm of breast Mammogram Screening [facility] Start: 07-09-2021 COVID-19 VACCINE (2 - Pfizer 3-dose series) COVID-19 VACCINE (2 - Pfizer 3-dose series) [facility] Start: 07-09-2021 COVID-19 VACCINE (2 - Pfizer series) COVID-19 VACCINE (2 - Pfizer series) [facility] Start: 07-05-2020 PAP TESTING PAP TESTING [facility] Start: 07-05-2020 Screening for malignant neoplasm of cervix [facility] Start: 12-20-2015 FECAL OCCULT BLOOD FECAL OCCULT BLOOD [facility] Start: 12-20-2015 Screening for malignant neoplasm of colon Fecal Occult Blood [facility] Start: 2013 Measurement of occult blood in single stool specimen FIT [facility] Start: 2013 Screening for malignant neoplasm of colon CRC Screening [facility] Start: 2013 Shingles (RZV) Vaccine (1 of 2) Shingles (RZV) Vaccine (1 of 2) [facility] Start: 2013 SHINGRIX VACCINE (1 of 2) SHINGRIX VACCINE (1 of 2) [facility] Start: 2008 Cholesterol [Mass/volume] in Serum or Plasma Cholesterol [facility] Start: 2008 COLOGUARD (FIT-DNA) COLOGUARD (FIT-DNA) [facility] Start: [address] COLONOGRAPHY [facility] Start: 2008 Screening for malignant neoplasm of colon [facility] Start: 2008 SIGMOIDOSCOPY SIGMOIDOSCOPY [facility] Start: 2003 Screening for malignant neoplasm of breast Mammography [facility] Start: 1993 Zoledronic acid therapy ALPHA-1 ANTITRYPSIN DEFICIENCY SCREENING [facility] Start: 1984 Screening for malignant neoplasm of cervix Pap Smear [facility] Start: 1981 Hepatitis C screening Hepatitis C Antibody [facility] Start: 1981 HIV SCREENING HIV SCREENING [facility] Start: 1981 HIV screening HIV Screening [facility] Start: 1981 Tetanus + diphtheria + acellular pertussis vaccine (product) Tdap Booster [facility] Start: 1978 HIV screening [facility] Start: 1963 Abdominal aortic aneurysm screening [facility] Start: 1963 Screening for malignant neoplasm of colon [facility] Anion gap in Serum o r Plasma [facility] Anion gap measurement [facility] Bacteria identified in Blood by Culture Blood Culture [facility] Bacteria identified in Blood by Culture Blood Culture [facility] BUN/Creatinine ratio [facility] BUN/Creatinine ratio [facility] Calcium [Mass/volume ] in Serum or Plasma [facility] Calcium [Mass/volume ] in Serum or Plasma [facility] Carbon dioxide, tota l [Moles/volume] in Central venous blood [facility] Carbon dioxide, tota l [Moles/volume] in Serum or Plasma [facility] Chloride [Moles/volu me] in Serum or Plasma [facility] Creatinine [Mass/vol ume] in Serum or Plasma [facility] Creatinine [Moles/volume] in Serum or Plasma [facility] End: 09-14-2025 CT Abdomen and Pelvis W contrast IV CT ABD/PEL W IVCON Radiology Routine Alcoholic hepatitis without ascites Acute pancreatitis, unspecified complication status, unspecified pancreatitis type Upper abdominal pain Nausea Elevated lipase Generalized abdominal tenderness without rebound tenderness 1 Occurrences starting 08/15/2024 until 09/14/2025 [facility] Work Phone: Comment on above: 1 Occurrences starting 08/15/2024 until 09/14/2025 CT Abdomen and Pelvi s W contrast IV CT ABD/PEL W IVCON Radiology Routine Alcoholic hepatitis without ascites Acute pancreatitis, unspecified complication status, unspecified pancreatitis type Upper abdominal pain Nausea Elevated lipase Generalized abdominal tenderness without rebound tenderness 08/23/2024 9:53 AM EST [facility] Work Phone: CT Chest [facility] CT Chest [facility] End: 06-03-2025 DBT Breast - bilateral screening SIMI SCREENING W [place]TH[place] Radiology Routine Encounter for screening mammogram for breast cancer 1 Occurrences starting 05/04/2024 until 06/03/2025 [facility] Work Phone: Comment on above: 1 Occurrences starting 05/04/2024 until 06/03/2025 End: 11-02-2025 EGD - THERAPEUTIC, EUS, OR TUBE INTERVENTIONS EGD - THERAPEUTIC, EUS, OR TUBE INTERVENTIONS Endoscopy Routine Chronic recurrent pancreatitis (HCC) 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 chronic pancreatitis (HCC) Chronic RUQ pain 1 Occurrences starting 11/02/2024 until 11/02/2025 [facility] Work Phone: Comment on above: 1 Occurrences starting 11/02/2024 until 11/02/2025 End: 11-27-2023 EMG(NEURO/NI) EMG(NEURO/NI) EMG Routine Numbness and tingling of both lower extremities Neuropathy Numbness and tingling of both feet 1 Occurrences starting 11/26/2022 until 11/27/2023 [facility] Work Phone: Comment on above: 1 Occurrences starting 11/26/2022 until 11/27/2023 End: 12-01-2025 ERCP ERCP Endoscopy Routine Other chronic pancreatitis (HCC) 1 Occurrences starting 12/01/2024 until 12/01/2025 [facility] Work Phone: Comment on above: 1 Occurrences starting 12/01/2024 until 12/01/2025 Erythrocyte mean corpuscular volume determination [facility] Glucose [Mass/volume ] in Serum or Plasma [facility] Glucose [Mass/volume ] in Serum or Plasma [facility] Hematocrit [Volume Fraction] of Blood [facility] Hemoglobin [Mass/vol ume] in Blood [facility] Legionella pneumophi la Ag [Presence] in Urine [facility] Leukocytes [#/volume ] in Blood [facility] End: 07-02-2024 SIMI SCREENING SIMI SCREENING Radiology Routine Encounter for screening mammogram for breast cancer 1 Occurrences starting 06/03/2023 until 07/02/2024 [facility] Work Phone: Comment on above: 1 Occurrences starting 06/03/2023 until 07/02/2024 Mean corpuscular hemoglobin concentration determination [facility] Mean corpuscular hemoglobin determination [facility] Measurement of renal function [facility] Measurement of renal function [facility] Microorganism identi fied in Unspecified specimen by Culture [facility] Neutrophil count [facility] Neutrophil percent differential count [facility] Patient Education [facility] Work Phone: Patient referral [facility] Work Phone: Platelets [#/volume] in Blood [facility] Potassium [Moles/vol ume] in Serum or Plasma [facility] Potassium measurement [facility] End: 12-25-2023 Radex spine lumbosacral 2/3 views XR LUMBAR GENERAL 3V AP/LAT/L5-S1 Radiology Routine Numbness and tingling of both lower extremities 1 Occurrences starting 11/25/2022 until 12/25/2023 [facility] Work Phone: Comment on above: 1 Occurrences starting 11/25/2022 until 12/25/2023 Radex spine lumbosac ral 2/3 views XR LUMBAR GENERAL 3V AP/LAT/L5-S1 Radiology Routine Numbness and tingling of both lower extremities 11/25/2022 11:18 AM EST [facility] Work Phone: Red blood cell count [facility] Red cell distributio n width determination [facility] End: 07-25-2023 Screening mammography bi 2-view breast inc cad SIMI SCREENING Radiology Routine Encounter for screening mammogram for breast cancer 1 Occurrences starting 06/25/2022 until 07/25/2023 [facility] Work Phone: Comment on above: 1 Occurrences starting 06/25/2022 until 07/25/2023 Serum chloride measurement [facility] Sodium [Moles/volume ] in Serum or Plasma [facility] Sodium measurement [facility] Streptococcus pneumo niae antigen assay [facility] UA DIP, URINE (POC) UA DIP, URIN E (POC) Lab Routine Urinary incontinence, unspecified type Urinary frequency Ordered: 08/10/2024 [facility] Comment on above: Ordered: 08/10/2024 Urea nitrogen [Mass/volume] in Serum or Plasma [facility] Urea nitrogen [Mass/volume] in Serum or Plasma [facility] End: 09-09-2025 US Abdomen RUQ US ABD RIGHT UPPER QUADRANT Radiology Routine Upper abdominal pain Nausea 1 Occurrences starting 08/10/2024 until 09/09/2025 [facility] Comment on above: 1 Occurrences starting 08/10/2024 until 09/09/2025 End: 05-17-2023 Us abdominal real time w/image limited US ABD RT UPPER QUADRANT Radiology Routine 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 chronic pancreatitis (HCC) Alcoholic hepatitis without ascites 1 Occurrences starting 04/17/2022 until 05/17/2023 [facility] Work Phone: Comment on above: 1 Occurrences starting 04/17/2022 until 05/17/2023 Us abdominal real ti me w/image limited US ABD RT UPPER QUADRANT Radiology Routine 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 chronic pancreatitis (HCC) Alcoholic hepatitis without ascites 05/02/2022 9:37 AM EDT [facility] Work Phone: End: 02-23-2025 XR Chest PA and Lateral XR CHEST 2V FRONTAL/LAT Radiology Routine Pneumonia due to infectious organism, unspecified laterality, unspecified part of lung Acute right ankle pain 1 Occurrences starting 01/25/2024 until 02/23/2025 [facility] Work Phone: Comment on above: 1 Occurrences starting 01/25/2024 until 02/23/2025 XR Chest PA and Lateral XR CHEST 2V FRONTAL/LAT Radiology Routine Pneumonia due to infectious organism, unspecified laterality, unspecified part of lung Acute right ankle pain 01/25/2024 2:13 PM EDT [facility] End: 09-09-2025 XR Chest PA and Lateral XR CHEST 2V FRONTAL/LAT Radiology Routine Shortness of breath Chronic obstructive pulmonary disease with acute exacerbation (HCC) Tobacco use disorder Pulmonary emphysema, unspecified emphysema type (HCC) 1 Occurrences starting 08/10/2024 until 09/09/2025 [facility] Comment on above: 1 Occurrences starting 08/10/2024 until 09/09/2025 XR Chest PA and Lateral XR CHEST 2V FRONTAL/LAT Radiology Routine Shortness of breath Chronic obstructive pulmonary disease with acute exacerbation (HCC) Tobacco use disorder Pulmonary emphysema, unspecified emphysema type (HCC) 08/10/2024 5:47 PM EST [facility] End: 01-18-2026 XR Chest PA and Lateral XR CHEST 2V FRONTAL/LAT Radiology Routine Chronic recurrent pancreatitis (HCC) Chronic obstructive pulmonary disease, unspecified COPD type (HCC) Hospital discharge follow-up 1 Occurrences starting 12/19/2024 until 01/18/2026 [facility] Work Phone: Comment on above: 1 Occurrences starting 12/19/2024 until 01/18/2026 XR Chest PA and Lateral XR CHEST 2V FRONTAL/LAT Radiology Routine Chronic recurrent pancreatitis (HCC) Chronic obstructive pulmonary disease, unspecified COPD type (HCC) Hospital discharge follow-up 12/19/2024 4:01 PM EDT [facility] Immunizations Immunization Date Immunization Notes Care Provider Sarah jorge 08-05-2024 influenza, seasonal, injectable Annmarie Elkins MD Work Phone: [facility] 07-18-2022 influenza, injectabl e, quadrivalent, contains preservative Soila Easton COSMETIC CONSULTANT.DAYTIME CAREGIVER Work Phone: [facility] 07-18-2022 influenza, injectabl e, quadrivalent, preservative free WARNING COORDINATION METEOROLOGIST-C SOILA OLDER Work Phone: [facility] 07-18-2022 influenza, seasonal, injectable WARNING COORDINATION METEOROLOGIST-C SOILA OLDER Work Phone: [facility] 07-18-2022 influenza virus vacc ine, unspecified formulation Soila Easton COSMETIC CONSULTANT.DAYTIME CAREGIVER Work Phone: [facility] 06-18-2021 Covid (Pfizer) WARNING COORDINATION METEOROLOGIST-C SOILA SCHNEIDER R Work Phone: [facility] 08-12-2020 tetanus toxoid, redu enid diphtheria toxoid, and acellular pertussis vaccine, adsorbed Víctor Mcpherson COSMETIC CONSULTANT.[facility] Work Phone: [facility] Work Phone: 05-24-2020 influenza, injectabl e, quadrivalent, contains preservative Víctor Mcpherson COSMETIC CONSULTANT.[facility] Work Phone: [facility] 07-26-2019 influenza, injectabl e, quadrivalent, contains preservative Víctor Mcpherson COSMETIC CONSULTANT.[facility] Work Phone: [facility] 08-31-2018 pneumococcal polysaccharide vaccine, 23 valent Víctor Mcpherson COSMETIC CONSULTANT.[facility] Work Phone: [facility] 08-17-2018 influenza, seasonal, injectable Víctor Mcpherson COSMETIC CONSULTANT.[facility], DNP Work Phone: [facility] 08-11-2018 Influenza, injectabl e, Madin Mitzi Canine Kidney, preservative free, quadrivalent Víctor Mcpherson COSMETIC CONSULTANT.[facility] Work Phone: [facility] Work Phone: 07-13-2018 influenza, injectabl e, quadrivalent, preservative free WARNING COORDINATION METEOROLOGIST-C SOILA OLDER Work Phone: [facility] 07-13-2018 influenza, seasonal, injectable WARNING COORDINATION METEOROLOGIST-C Theron Teague WARNING COORDINATION METEOROLOGIST Work Phone: [facility] 07-13-2018 influenza, seasonal, injectable, preservative free Víctor Blaz COSMETIC CONSULTANT.[facility] Work Phone: [facility] Work Phone: 08-27-2017 pneumococcal conjuga te vaccine, 13 valent Víctor Blaz COSMETIC CONSULTANT.[facility] Work Phone: [facility] 07-13-2017 influenza, injectabl e, quadrivalent, contains preservative Víctor Blaz COSMETIC CONSULTANT.[facility] Work Phone: [facility] 06-24-2016 influenza, injectabl e, quadrivalent, contains preservative Víctor Blaz COSMETIC CONSULTANT.[facility] Work Phone: [facility] 10-28-2013 Influenza virus vaccine WARNING COORDINATION METEOROLOGIST-C Theron Teague WARNING COORDINATION METEOROLOGIST Work Phone: [facility] 10-28-2013 influenza, seasonal, injectable, preservative free Víctor Blaz COSMETIC CONSULTANT.[facility] Work Phone: [facility] Work Phone: 07-17-2012 influenza virus vacc ine, unspecified formulation Víctor Blaz COSMETIC CONSULTANT.[facility] Work Phone: [facility] 07-19-2011 influenza virus vacc ine, unspecified formulation Víctor Blaz COSMETIC CONSULTANT.[facility] Work Phone: [facility] Work Phone: 07-30-2010 influenza virus vacc ine, unspecified formulation Víctor Blaz COSMETIC CONSULTANT.[facility] Work Phone: [facility] 10-05-2009 pneumococcal polysaccharide vaccine, 23 valent Víctor Blaz COSMETIC CONSULTANT.[facility] Work Phone: [facility] Work Phone: 10-05-2009 Pneumococcal Vaccine WARNING COORDINATION METEOROLOGIST-C Alka Teague WARNING COORDINATION METEOROLOGIST Work Phone: [facility] Work Phone: 10-05-2009 pneumococcal vaccine , unspecified formulation WARNING COORDINATION METEOROLOGIST-C SOILA EASTON Work Phone: [facility] 08-14-2009 novel influenza-H1N1 -09, all formulations Víctor Mcpherson APRN.DAYTIME CAREGIVER, DNP Work Phone: [facility] 07-06-2009 influenza virus vacc ine, unspecified formulation Víctor Mcpherson APRN.DAYTIME CAREGIVER, DNP Work Phone: [facility] Work Phone: 03-28-2007 pneumococcal polysaccharide vaccine, 23 valent Víctor Mcpherson APRN.DAYTIME CAREGIVER, DNP Work Phone: [facility] Payers Date Payer Category Payer Self-pay 2015 Unknown [id number] 2015 Unknown [id number] 2006 Medicaid [facility] MEDICAID [id number] 2006-Present [phone] [address] [place] [address] Medicaid [id number]. [id number] 2006 Medicaid [id number] [id number]. [id number] 1963 Unknown [id number] 2.0.1.759337.3.579.2.73 1963 Unknown [id number] 2.840.1.811871.3.579.2.73 1963 Unknown [id number] 2.16840.1.245211.3.579.2.73 1963 Unknown [id number] 2.16840.1.790193.3.579.2.73 1963 Unknown [id number] 2.16840.1.813968.3.579.2.73 1963 Unknown [id number] 2.16.840.1.217086.3.579.2.732 1963 Unknown [id number] 2.16.840.1.962923.3.579.2.732 1963 Unknown [id number] 2.16.840.1.695724.3.579.2.732 1963 Unknown [id number] 2.16.840.1.912077.3.579.2.732 1963 Unknown [id number] 2..840.1.740671.3.579.2.356 1963 Unknown [id number] 2.840.1.533890.3.579.2.356 1963 Unknown [id number] 2.840.1.140722.3.579.2.356 1963 Unknown [id number] 2.840.1.662520.3.579.2.356 1963 Unknown [id number] 2.840.1.520438.3.579.2.356 1963 Unknown [id number] 2.840.1.778166.3.579.2.356 1963 Unknown [id number] 2..840.1.795943.3.579.2.356 Unknown Unknown [id number] 2.840.1.328799.3.579.2.462 Unknown [id number] 2.840.1.232801.3.579.2.462 Unknown [id number] 2.16.840.1.004921.3.579.2.462 Unknown [id number] 2.16.840.1.005856.3.579.2.462 Unknown [id number] 2.16.840.1.491823.3.579.2.462 Unknown [id number] 2.16.840.1.232535.3.579.2.462 Unknown [id number] 2.16.840.1.862216.3.579.2.462 Unknown [id number] 2.16.840.1.806744.3.579.2.462 Unknown [id number] 2.16.840.1.505618.3.579.2.462 Unknown [id number] 2.16.840.1.352785.3.579.2.462 Unknown [id number] 2.16.840.1.112753.3.579.2.462 Unknown [id number] 2.16.840.1.820464.3.579.2.462 Unknown [id number] 2.16.840.1.248890.3.579.2.462 Unknown [id number] 2.16.840.1.848800.3.579.2.462 Unknown [id number] 2.16.840.1.748654.3.579.2.462 Unknown [id number] 2.16.840.1.259216.3.579.2.462 Unknown [id number] 2.16.840.1.117766.3.579.2.462 Unknown [id number] 2.16.840.1.159524.3.579.2.462 Unknown [id number] 2.16.840.1.870728.3.579.2.462 Unknown [id number] 2.16.840.1.340066.3.579.2.462 Unknown [id number] 2.16.840.1.274471.3.579.2.462 Unknown [id number] 2.16.840.1.009941.3.579.2.462 Unknown [id number] 2.16.840.1.358156.3.579.2.462 Unknown [id number] 2.16.840.1.954598.3.579.2.462 Unknown [id number] 2.16.840.1.318696.3.579.2.462 Unknown [id number] 2.16.840.1.176356.3.579.2.462 Unknown [id number] 2.16.840.1.020239.3.579.2.462 Unknown [id number] 2.16.840.1.354195.3.579.2.462 Unknown [id number] 2.16840.1.778778.3.579.2.462 Unknown [id number] 2.16.840.1.824519.3.579.2.462 Social History Date Type Detail Facility Start: 10-19-1992 End: 12-01-2024 Tobacco smoking status GAIS Smokes tobacco daily [facility] Start: 10-19-1992 End: 10-19-2022 History of tobacco use Cigarette Smoker [facility] Start: 07-05-2019 End: 03-30-2023 Cigarettes smoked current (pack per day) - Reported 0.5 [facility] Start: 07-05-2019 End: 12-01-2024 Tobacco use and exposure Smokeless tobacco non-user [facility] Start: 07-18-2021 End: 03-10-2025 Alcohol intake Ex-drinker (finding) [facility] Start: 03-26-2021 History SDOH Alcohol Comment Alcoholic - November 2020 - last drink [facility] Start: 1965 Sex Assigned At Not on file [facility] Start: 03-03-2022 End: 01-19-2024 Tobacco smoking status [facility] Unknown if ever smoked [facility] Start: 01-22-2021 Heavy [facility] Start: 01-22-2021 Marijuana [facility] Start: 02-01-2019 Alone [facility] Start: 01-22-2021 Cigarettes [facility] Start: 1965 Sex Assigned At Female [facility] Start: 03-11-2022 End: 05-27-2022 Exposure to SARS-CoV-2 (event) Not sure [facility] Start: 10-21-2022 Tobacco use and exposure User of smokeless tobacco [facility] Start: 11-11-2022 End: 05-18-2024 Tobacco smoking status NHIS Ex-smoker [facility] Work Phone: Start: 10-19-1992 End: 10-19-2022 History of tobacco use Current smoker [facility] Work Phone: Start: 03-30-2023 End: 04-15-2023 Tobacco use panel [facility] Adult Depression Screening Assessment 4 [facility] Start: 12-04-2024 End: 12-06-2024 Tobacco smoking status NHIS Current Heavy tobacco smoker [facility] Start: 12-04-2024 End: 01-01-2025 Sex Female (finding) [facility] Start: 12-24-2024 End: 02-26-2025 Tobacco smoking status [facility] Current some day smoker [facility] Medical Equipment Procedure Code Equipment Code Equipment Origin al Text Equipment Identifier Dates Total cholecystectomy with exploration of common bile duct [id number] FDA Start: 06-14-2021 Stent Zimmon 7fr Duodenal Pigtail Curve Purple Polyethylene 11cm Pancreatic - [id number] Start: 03-10-2025 Goals Date Patient Goal Desired Activity /State Functional Status Date Assessment Result Facility 12-12-2024 Functional status Ambulates;Bath room Privilege [facility] Work Phone: 12-08-2024 Functional status Bedrest [facility] Work Phone: 01-05-2024 Functional status Ambulates [facility] Work Phone: 11-07-2022 Functional status Ambulates [facility] Work Phone: 02-02-2015 Are you deaf, or do you have serious difficulty hearing No 02/02/2015 9:44 AM Alondra Mackenzie RN No [facility] 02-02-2015 Are you blind, or do you have serious difficulty seeing, even when wearing glasses No 02/02/2015 9:44 AM Alondra Mackenzie RN No [facility] 02-02-2015 Do you have serious difficulty walking or climbing stairs No 02/02/2015 9:44 AM Alondra Mackenzie RN No [facility] 02-02-2015 Do you have difficul ty dressing or bathing No 02/02/2015 9:44 AM Alondra Mackenzie RN No [facility] 02-02-2015 Because of a physica l, mental, or emotional condition, do you have difficulty doing errands alone such as visiting a physician's office or shopping No 02/02/2015 9:44 AM Alondra Mackenzie RN No [facility] Functional observable [facility] Mental Status Date Assessment Result Facility 12-12-2024 Cognitive function Voice/Name [facility] Work Phone: 12-11-2024 Cognitive function Appropriate;Cooperativ e [facility] Work Phone: 12-08-2024 Cognitive function Voice/Name [facility] Work Phone: 01-19-2024 Cognitive function Level Of Cons ciousness Awake;Alert;Appropriate [facility] Work Phone: 01-05-2024 Cognitive function Voice/Name [facility] Work Phone: 06-02-2023 Cognitive function Level Of Cons ciousness Awake;Alert;Appropriate;Fol lows Commands [facility] Work Phone: 11-07-2022 Cognitive function Voice/Name [facility] Work Phone: 10-24-2022 Cognitive functi ons [id number] [facility] 02-02-2015 Because of a physica l, mental, or emotional condition, do you have serious difficulty concentrating, remembering, or making decisions No 02/02/2015 9:44 AM Alondra Mackenzie RN No [facility] Clinical Notes 01-10-2021 to 03-10-2025 Janis Ac RN - 03/10/2025 5:06 PM Janis Zuniga RN - 03/10/2025 5:06 PM Janis Zuniga RN - 03/10/2025 4:33 PM Janis Zuniga RN - 03/10/2025 4:02 PM EDT Note Date & Type Note Facility 03-10-[address] Chakraborty anesthesia ok d patient to be discharged Three hot packs given to patient for right arm [facility] 03-10-[address] Chakraborty anesthesia ok d patient to be discharged Three hot packs given to patient for right arm Patient states her arm where the infiltration occurred it is burning Patient informed to keep an eye on the infiltrated area so a blister does not form of it does go to the Emergency room Right AC IV infiltrated with 100cc IV Propofol large swollen red hard area Hot pack applied Patient crying stating arm hurts patient Gracie and sister Magui spoke to Motor Coach Tour Operator nurse rainbow trout farm manager Reshma FAM [facility] office number given. Pharmacy called, Zelda pharmacist notified unable to help. Called Drug information line spoke with Milan fallon monitor patient There is no information in regards to amount of time Propofol will take to infuse .Patient is awake alert oriented x3 Dr Chakraborty anesthesia notified patients blood pressure low 73/52 74/51 Albumin 25 grams given Patient awake alert oriented x3 skin warm and dry AMBULATORY PATIENT EDUCATION NOTE TOPIC: GI PROCEDURES: Endoscopic Retrograde CholangioPancreatography(ERCP) with or without biopsy,stenting,dilation and/or treatment READINESS TO LEARN INSTRUCTION PROVIDED TO: Patient and family member COGNITIVE ABILITY: Alert and oriented PTED MOTIVATION TO LEARN: Interested FAMILY SUPPORT: High - Very involved in pt care IPATIENT LEARNS BEST BY: Individual Instruction Written Instruction - Hand-outs Verbal Instruction FACTORS AFFECTING LEARNING: None PHYSICAL LIMITATIONS AFFECTING LEARNING: None LEARNING RESPONSE METHOD OF INSTRUCTION: Individual instruction PATIENT / FAMILY RESPONSE: Verbalizes understanding of: WORSENING CONDITION-Signs and symptoms of a worsening condition that warrant a call to the physician FOLLOW-UP PLAN: Patient instructed to call with any further issues SUPPLEMENTAL MATERIAL: Procedure Discharge Instructions REFERRAL (RECOMMENDATION): None PRE OP LEARNING ASSESSMENT PROCEDURE/SURGERY: GI PROCEDURES: ERCP READINESS TO LEARN COGNITIVE ABILITY: Alert and oriented MOTIVATION TO LEARN: Eager FAMILY SUPPORT: High - Very involved in pt care PATIENT LEARNS BEST BY: Individual Instruction Verbal Instruction FACTORS AFFECTING LEARNING: None PHYSICAL LIMITATIONS AFFECTING LEARNING: None Electronically Signed By: Adrian Edmond RN In Department: GASTROENTEROLOGY documented in this encounter [facility] 03-10-2025 Nurse Note Patient states her arm where the infiltration occurred it is burning Patient informed to keep an eye on the infiltrated area so a blister does not form of it does go to the Emergency room [facility] 03-10-2025 Nurse Note Right AC IV infiltrated with 100cc IV Propofol large swollen red hard area Hot pack applied Patient crying stating arm hurts patient Gracie and sister Magui spoke to Motor Coach Tour Operator nurse rainbow trout farm manager [facility]hma [facility] given. Pharmacy called, Zelda pharmacist notified unable to help. Called Drug information line spoke with Milan fallon monitor patient There is no information in regards to amount of time Propofol will take to infuse .Patient is awake alert oriented x3 [facility] 03-10-[address] Gayle anesthesia notified patients blood pressure low 73/52 74/51 Albumin 25 grams given Patient awake alert oriented x3 skin warm and dry T [facility] 03-10-2025 Nurse Note AMBULATORY PATIENT EDUCATION NOTE TOPIC: GI PROCEDURES: Endoscopic Retrograde CholangioPancreatography(ERCP) with or without biopsy,stenting,dilation and/or treatment READINESS TO LEARN INSTRUCTION PROVIDED TO: Patient and family member COGNITIVE ABILITY: Alert and oriented PTED MOTIVATION TO LEARN: Interested FAMILY SUPPORT: High - Very involved in pt care IPATIENT LEARNS BEST BY: Individual Instruction Written Instruction - Hand-outs Verbal Instruction FACTORS AFFECTING LEARNING: None PHYSICAL LIMITATIONS AFFECTING LEARNING: None LEARNING RESPONSE METHOD OF INSTRUCTION: Individual instruction PATIENT / FAMILY RESPONSE: Verbalizes understanding of: WORSENING CONDITION-Signs and symptoms of a worsening condition that warrant a call to the physician FOLLOW-UP PLAN: Patient instructed to call with any further issues SUPPLEMENTAL MATERIAL: Procedure Discharge Instructions REFERRAL (RECOMMENDATION): None [facility] 03-10-2025 Note Q3 Patient Name: Gracie Banuelos Procedure Date: 03/10/2025 1:46 PM Date of : 1965 Admit Type: Outpatient Age: 59 Gender: Female Note Status: Finalized Attending MD: Jane Farrell MD, [id number] Procedure: ERCP Indications: Chronic pancreatitis, For therapy of chronic pancreatitis, Pancreatic duct stone Providers: Jane Farrell MD Referring Physician: Jane Farrell MD (Referring MD) Medicines: General Anesthesia Complications: No immediate complications. Requesting Provider: Procedure: Pre-Anesthesia Assessment: - ASA Grade Assessment: II - A patient with mild systemic disease. After obtaining informed consent, the scope was passed under direct vision. Throughout the procedure, the patient's blood pressure, pulse, and oxygen saturations were monitored continuously. The Duodenoscope was introduced through the mouth, and advanced to the duodenum and used to inject contrast into the ventral pancreatic duct. The ERCP was accomplished without difficulty. The patient tolerated the procedure well. Moderate Sedation: GA Findings: A ware dresser film of the abdomen was obtained. Multiple stones were seen in the pancreatic duct in the genu of the pancreas. The major papilla was normal. The ventral pancreatic duct was deeply cannulated with the short-nosed traction sphincterotome and guidewire. Contrast was injected. I personally interpreted the pancreatic duct images. There was brisk flow of contrast through the ducts. Image quality was excellent. Contrast extended to the pancreatic duct. The pancreatic duct in the genu of the pancreas contained a moderate stenosis. The pancreatic duct in the body of the pancreas contained multiple stones. Diffuse irregularity of the pancreatic duct was seen in the entire opacified area and main pancreatic duct. A 5 mm ventral pancreatic sphincterotomy was made with a monofilament traction (standard) sphincterotome using ERBE electrocautery. There was no post-sphincterotomy bleeding. To find object(s) the ventral pancreatic duct was swept with an 11.5 mm balloon starting at the pancreatic duct in the tail of the pancreas. A few stones were removed. A few stones remained. The main pancreatic duct was successfully dilated with a 4 mm x 2 cm CRE Hurricane biliary balloon dilator. One 7 Fr by 11 cm plastic pancreatic stent with a full external pigtail and a single internal flap was placed 11 cm into the ventral pancreatic duct. Clear fluid flowed through the stent. The stent was in good position. Impression: - The major papilla appeared normal. - A pancreatic duct stricture was found. - An irregularity was found in the entire opacified area of the pancreatic duct and main pancreatic duct. - Pancreatic stones were found. Partial removal was accomplished. - A pancreatic sphincterotomy was performed. - The ventral pancreatic duct was swept. - The main pancreatic duct was successfully dilated. - One plastic pancreatic stent was placed into the ventral pancreatic duct. Estimated Blood Loss: Estimated blood loss: none. Recommendation: - Patient has a contact number available for emergencies. The signs and symptoms of potential delayed complications were discussed with the patient. Return to normal activities tomorrow. Written discharge instructions were provided to the patient. - Resume previous diet. - Continue present medications. - Repeat ERCP in 4 months to remove stent. Procedure Code(s): --- Professional --- 70013, Endoscopic retrograde cholangiopancreatography (ERCP); with placement of endoscopic stent into biliary or pancreatic duct, including pre- and post-dilation and guide wire passage, when performed, including sphincterotomy, when performed, each stent 90456, Endoscopic retrograde cholangiopancreatography (ERCP); with removal of calculi/debris from (more content not included)... [facility] 03-10-2025 Note HNO ID: [id number] Author: VANESSA PEREZ APRN.CRNA Service: ? Author Type: Nurse Assistant Manager Pt Type: Anesthesia Procedure Notes Filed: 03/10/2025 14:41 Note Text: ANESTHESIOLOGY PROCEDURE NOTE Airway General Information Procedure Start Time/Medication Administration: 03/10/2025 2:15 PM Procedure End Time: 03/10/2025 2:15 PM Patient location during procedure: OR Timeout Performed Pre-procedure: timeout performed Consent Obtained: Yes Patient identity confirmed: arm band, care steam train driver and patient Staffing ACID DUMPER: Vanessa Perez APRN.ACID DUMPER Performed by: LISETTE Indications and Patient Condition Indications for airway management: anesthesia and airway protection Preoxygenated: yes anesthesia circuit Patient position: sniffing Method: sleep Difficult Mask: No Final Airway Details Final airway type: endotracheal airway Final Endotracheal Airway: ETT Cuffed: yes Successful intubation technique: video laryngoscopy Devices used: Sylantro Endotracheal tube insertion site: oral Blade size: #3 ETT size (mm): 7.0 Measured from: lips Measurement (cm): 21 Placement verified by: capnometry Cormack-Lehane Classification: grade I - full view of glottis Number of attempts at approach: 1 Airway not difficult SIGNATURE: Vanessa Perez APRN.ACID DUMPER PATIENT NAME: Gracie Banuelos DATE: March 10, 2025 TIME: 2:40 PM CSN: [id number] [facility] 03-10-2025 Note Q3 Patient Name: Gracie Banuelos Procedure Date: 03/10/2025 1:46 PM Date of : 1965 Admit Type: Outpatient Age: 59 Gender: Female Note Status: Finalized Attending MD: Jane Farrell MD, [id number] Procedure: ERCP Indications: Chronic pancreatitis, For therapy of chronic pancreatitis, Pancreatic duct stone Providers: Jane Farrell MD Referring Physician: Jane Farrell MD (Referring MD) Medicines: General Anesthesia Complications: No immediate complications. Requesting Provider: Procedure: Pre-Anesthesia Assessment: - ASA Grade Assessment: II - A patient with mild systemic disease. After obtaining informed consent, the scope was passed under direct vision. Throughout the procedure, the patient's blood pressure, pulse, and oxygen saturations were monitored continuously. The Duodenoscope was introduced through the mouth, and advanced to the duodenum and used to inject contrast into the ventral pancreatic duct. The ERCP was accomplished without difficulty. The patient tolerated the procedure well. Moderate Sedation: GA Findings: A ware dresser film of the abdomen was obtained. Multiple stones were seen in the pancreatic duct in the genu of the pancreas. The major papilla was normal. The ventral pancreatic duct was deeply cannulated with the short-nosed traction sphincterotome and guidewire. Contrast was injected. I personally interpreted the pancreatic duct images. There was brisk flow of contrast through the ducts. Image quality was excellent. Contrast extended to the pancreatic duct. The pancreatic duct in the genu of the pancreas contained a moderate stenosis. The pancreatic duct in the body of the pancreas contained multiple stones. Diffuse irregularity of the pancreatic duct was seen in the entire opacified area and main pancreatic duct. A 5 mm ventral pancreatic sphincterotomy was made with a monofilament traction (standard) sphincterotome using ERBE electrocautery. There was no post-sphincterotomy bleeding. To find object(s) the ventral pancreatic duct was swept with an 11.5 mm balloon starting at the pancreatic duct in the tail of the pancreas. A few stones were removed. A few stones remained. The main pancreatic duct was successfully dilated with a 4 mm x 2 cm CRE Hurricane biliary balloon dilator. One 7 Fr by 11 cm plastic pancreatic stent with a full external pigtail and a single internal flap was placed 11 cm into the ventral pancreatic duct. Clear fluid flowed through the stent. The stent was in good position. Impression: - The major papilla appeared normal. - A pancreatic duct stricture was found. - An irregularity was found in the entire opacified area of the pancreatic duct and main pancreatic duct. - Pancreatic stones were found. Partial removal was accomplished. - A pancreatic sphincterotomy was performed. - The ventral pancreatic duct was swept. - The main pancreatic duct was successfully dilated. - One plastic pancreatic stent was placed into the ventral pancreatic duct. Estimated Blood Loss: Estimated blood loss: none. Recommendation: - Patient has a contact number available for emergencies. The signs and symptoms of potential delayed complications were discussed with the patient. Return to normal activities tomorrow. Written discharge instructions were provided to the patient. - Resume previous diet. - Continue present medications. - Repeat ERCP in 4 months to remove stent. Procedure Code(s): --- Professional --- 00671, Endoscopic retrograde cholangiopancreatography (ERCP); with placement of endoscopic stent into biliary or pancreatic duct, including pre- and post-dilation and guide wire passage, when performed, including sphincterotomy, when performed, each stent 88661, Endoscopic retrograde cholangiopancreatography (ERCP); with removal of calculi/debris from biliary/pancreatic duct(s) 54713, Endoscopic catheterization of the pancreatic ductal system, radiological supervision and interpretation Diagnosis Code(s): --- Professional --- K86.89, Other specified diseases of pancreas K86.1, Other chronic pancreatitis R93.2, Abnormal findings on diagnostic imaging of liver and biliary tract CPT copyright 2020 [employer] [place] [employer]. All rights reserved. Attending Participation: I personally performed the entire procedure. Scope In: 2:28:14 PM Scope Out: 2:49:25 PM MD Jane Fields MD 03/10/2025 3:19:29 PM This report has been signed electronically by Jane Farrell MD Number of Addenda: 0 Note Initiated On: 03/10/2025 1:46 PM [facility] 03-10-2025 Nurse Note PRE OP LEARNING ASSESSMENT PROCEDURE/SURGERY: GI PROCEDURES: ERCP READINESS TO LEARN COGNITIVE ABILITY: Alert and oriented MOTIVATION TO LEARN: Eager FAMILY SUPPORT: High - Very involved in pt care PATIENT LEARNS BEST BY: Individual Instruction Verbal Instruction FACTORS AFFECTING LEARNING: None PHYSICAL LIMITATIONS AFFECTING LEARNING: None Electronically Signed By: Adrian Edmond RN In Department: GASTROENTEROLOGY [facility] 03-07-2025 Telephone encounter Note Patient called, did not receive email. She stated it had to all be in lower case. I resent email Thank you Isis Joe [facility] 03-07-2025 Miscellaneous Notes Patient called, did not receive email. She stated it had to all be in lower case. I resent email Thank you Isis R Images from the original note were not included. Jane Farrell MD Department of Gastroenterology- Advanced Endoscopy [address] [address] 03/07/2025 Pt. name: Gracie Banuelos 1965 MEDICAL Procedure This is to certify that Gracie Banuelos this is a letter to confirm that Gracie has a procedure at [facility] on 03/10 with an arrival time of 12pm. This appointment needs to have a responsible adult long haul truck driver to accompany her for transportation to and after her procedure. Sincerely, Jane Farrell MD She stated there was supposed to be a letter or some document to be faxed over to [employer] to help pay for her gas prior to her ERCP on 03/10/25 Email: [email or web address] Are we able to get that sent over for patient? Thank you Isis R documented in this encounter [facility] 03-07-2025 Telephone encounter Note Images from the original note were not included. Jane Farrell MD Department of Gastroenterology- Advanced Endoscopy [address] [address] 03/07/2025 Pt. name: Gracie Banuelos 1965 MEDICAL Procedure This is to certify that Gracie Banuelos this is a letter to confirm that Gracie has a procedure at [facility] on 03/10 with an arrival time of 12pm. This appointment needs to have a responsible adult long haul truck driver to accompany her for transportation to and after her procedure. Sincerely, Jane Farrell MD [facility] Work Phone: 03-07-2025 Note HNO ID: [id number] Author: JUAN BLOOM LPN Service: ? Author Type: LICENSED NURSE Type: Progress Notes Filed: 03/07/2025 12:28 Note Text: Jane Farrell MD Department of Gastroenterology- Advanced Endoscopy [address] [id number] 03/07/2025 Pt. name: Gracie Banuelos 1965 MEDICAL Procedure This is to certify that Gracie Banuelos this is a letter to confirm that Gracie has a procedure at [facility] on 03/10 with an arrival time of 12pm. This appointment needs to have a responsible adult long haul truck driver to accompany her for transportation to and after her procedure. Sincerely, Jane Farrell MD [facility] 03-07-2025 History of Presen t illness Narrative Images from the original note were not included. Jane Farrell MD Department of Gastroenterology- Advanced Endoscopy [address] [address] 03/07/2025 Pt. name: Gracie Banuelos 1965 MEDICAL Procedure This is to certify that Gracie Banuelos this is a letter to confirm that Gracie has a procedure at [facility] on 03/10 with an arrival time of 12pm. This appointment needs to have a responsible adult long haul truck driver to accompany her for transportation to and after her procedure. Sincerely, Jane Farrell MD documented in this encounter [facility] 03-07-2025 Telephone encounter Note She stated there was supposed to be a letter or some document to be faxed over to [employer] to help pay for her gas prior to her ERCP on 03/10/25 Email: [email or web address] Are we able to get that sent over for patient? Thank you Isis Joe [facility] 03-06-2025 Telephone encounter Note Patient calling to discuss anxiety related to ERCP on Saturday 03/10. She is wondering if she can receive something for anxiety prior to procedure. Patient instructed to ask Dr. Farrell prior. Patient also asking for email to be sent to [employer] ([employer]) with proof of procedure for gas money. Patient also reports diarrhea and changes in mental status/forgetfulness and extreme fatigue after increasing gabapentin dose. Instructed patient to decrease dose from TID to BID. Also strongly encouraged patient to keep upcoming appointment with pain management. All questions answered at this time. Will follow up after procedure. Juan Senior APRN.CNP [facility] Work Phone: 03-06-2025 Miscellaneous Notes Patient calling to discuss anxiety related to ERCP on Saturday 03/10. She is wondering if she can receive something for anxiety prior to procedure. Patient instructed to ask Dr. Farrell prior. Patient also asking for email to be sent to [employer] ([employer]) with proof of procedure for gas money. Patient also reports diarrhea and changes in mental status/forgetfulness and extreme fatigue after increasing gabapentin dose. Instructed patient to decrease dose from TID to BID. Also strongly encouraged patient to keep upcoming appointment with pain management. All questions answered at this time. Will follow up after procedure. Juan Senior APRN.CNP Patient called the office and would like a refill for gabapentin (NEURONTIN) 300 mg capsule. Please send script to: [facility] [address] [place] [address] [address] - [phone] [[phone]] Dayana Martell documented in this encounter [facility] 03-06-2025 Telephone encounter Note Attempted to reach patient to answer he questions from call this morning, no answer. VM left to call the office back. [facility] Work Phone: 03-06-2025 Miscellaneous Notes Attempted to reach patient to answer he questions from call this morning, no answer. VM left to call the office back. documented in this encounter [facility] 03-06-2025 Telephone encounter Note Gracie calling #[phone] Patient is calling regarding wanting to speak with Juan Senior directly if possible, she stated she has some questions prior to her ERCP on 03/10/25. Also wanted to mention that the gabapentin she was put on has given her diarrhea and she's very confused and forgetting to take her medication and forgetful in general, She's unsure if this is something she should be taking Confirmed call back number and voicemail is ok. Thank you Isis Joe [facility] 03-06-2025 Miscellaneous Notes Gracie calling #[phone] Patient is calling regarding wanting to speak with Juan Senior directly if possible, she stated she has some questions prior to her ERCP on 03/10/25. Also wanted to mention that the gabapentin she was put on has given her diarrhea and she's very confused and forgetting to take her medication and forgetful in general, She's unsure if this is something she should be taking Confirmed call back number and voicemail is ok. Thank you Isis Joe documented in this encounter [facility] 03-03-2025 Nurse Note Attempted to reach the patient at the contact number that they provided [phone] (home) . Unable to speak with patient so without identifying the patient the following information was left on their voice mail: Date of procedure, location and report time A message was left informing the patient/patient patient support representative they must have a responsible adult accompany them to their procedure; and remain in the endoscopy area until they are discharged. Failure to have a responsible adult accompany the patient to their procedure appointment prevents the use of sedation or anesthesia for their procedure; and can result in cancellation of the procedure NPO instructions were reviewed. Instructions to contact their primary care provider regarding their medications and which medications to stop in preparation for their procedure Instructions to completely read and follow the written instructions that they recieved regarding their procedure. Number to call with questions or concerns [phone] Number to call to cancel their procedure [phone] Jaelyn Kothari RN [facility] 03-03-2025 Nurse Note Attempted to reach the patient at the contact number that they provided [phone] (home) . Unable to speak with patient so without identifying the patient the following information was left on their voice mail: Date of procedure, location and report time A message was left informing the patient/patient patient support representative they must have a responsible adult accompany them to their procedure; and remain in the endoscopy area until they are discharged. Failure to have a responsible adult accompany the patient to their procedure appointment prevents the use of sedation or anesthesia for their procedure; and can result in cancellation of the procedure NPO instructions were reviewed. Instructions to contact their primary care provider regarding their medications and which medications to stop in preparation for their procedure Instructions to completely read and follow the written instructions that they recieved regarding their procedure. Number to call with questions or concerns [phone] Number to call to cancel their procedure [phone] Jaelyn Kothari RN documented in this encounter [facility] 02-26-2025 Radiology Diagnostic study note [facility] 02-10-2025 Telephone encounter Note Received / transmitted outside records to patient's chart. See scanned documents tab (clearance letter). [facility] Work Phone: 02-10-2025 Miscellaneous Notes Received / transmitted outside records to patient's chart. See scanned documents tab (clearance letter). documented in this encounter [facility] 02-03-2025 Telephone encounter Note Patient called the office and would like a refill for gabapentin (NEURONTIN) 300 mg capsule. Please send script to: [facility] [address] [place] [address] - [address] - [phone] [[phone]] Dayana Martell [facility] 01-24-2025 Telephone encounter Note Prescription Refill Information The patient has been identified by name and date of : Yes Caregiver verified no other encounters exist for this prescription request: Yes Caregiver confirmed with patient/requestor that no other refills are due, in the near future, with this provider at this time: Yes The last office visit in the department: 01-13-25 Does the patient have a future office visit with this provider/department: No Requested Prescriptions Pending Prescriptions Disp Refills simvastatin (ZOCOR) 20 mg tablet 30 tablet 11 Sig: Take 1 tablet by mouth daily at bedtime. Holly Owen [facility] January 24, 2025 8:59 AM [facility] 01-24-2025 Miscellaneous Notes Prescription Refill Information The patient has been identified by name and date of : Yes Caregiver verified no other encounters exist for this prescription request: Yes Caregiver confirmed with patient/requestor that no other refills are due, in the near future, with this provider at this time: Yes The last office visit in the department: 01-13-25 Does the patient have a future office visit with this provider/department: No Requested Prescriptions Pending Prescriptions Disp Refills simvastatin (ZOCOR) 20 mg tablet 30 tablet 11 Sig: Take 1 tablet by mouth daily at bedtime. Holly Jensen January 24, 2025 8:59 AM documented in this encounter [facility] 01-17-2025 Telephone encounter Note Appears patient was seen on 01/13/25 [facility] 01-17-2025 Miscellaneous Notes Appears patient was seen on 01/13/25 Left message for patient to return call. When patient calls, please obtain the answers to Soila Easton's questions below or transfer to nurse to get the requested information. Eva Guardado Hesitant to send the ibuprofen. What has she been taking for pain? She was jsut in hospital with EGD and found blood in her mouth any recent Gi bleeds? Ibuprofen can cause GI bleeds. Thank you Soila Easton APRN.CNP Prescription Refill Information The patient has been identified by name and date of : Yes Caregiver verified no other encounters exist for this prescription request: Yes Caregiver confirmed with patient/requestor that no other refills are due, in the near future, with this provider at this time: Yes The last office visit in the department: 12/19/24 Does the patient have a future office visit with this provider/department: No Requested Prescriptions Pending Prescriptions Disp Refills ondansetron orally disintegrating (ZOFRAN ODT) 4 mg disintegrating tablet 30 tablet 1 Sig: Take 1 tablet by mouth every 6 hours as needed for nausea/vomiting. ibuprofen (MOTRIN) 400 mg tablet 100 tablet 1 Sig: TAKE 1 TABLET BY MOUTH EVERY SIX HOURS NEEDED Chen Chauhan LPN January 02, 2025 8:30 AM Patient called stating she has pain mgmt appt on 01/05. Patient is requesting zofran, and extra strength Ibuprofen 400 mg. Patient uses [facility] [place], [place]. documented in this encounter [facility] 01-13-2025 Note HNO ID: [id number] Author: SOILA EASTON APRN.DAYTIME CAREGIVER Service: ? Author Type: Nurse Practitioner Type: Progress Notes Filed: 01/13/2025 11:33 Note Text: CC: Patient presents with: Recheck: Follow up HPI Gracie Banuelos is a 59 year old female who presents today for gout concerns. Recording using GrexIt software for draft documentation of the visit was discussed with the patient/authorized patient support representative; all questions welcomed and answered. Patient/authorized patient support representative agreed to proceed Gout: - Under care of Dr. [facility] - was told it was gout which she has been treated with by them before and was instructed to see her PCP for treatment - Recent exacerbation in right foot, with swelling and pain in toes, especially at night. Similar presentation as past exacerbations. - Per patient, last exacerbation about a week ago, treated with morphine shot in the ER - Takes colchicine for gout, last used a couple of months ago asa ordered by her vocational training teacher. 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 - Previously on 12 L of oxygen, now reduced to 5 L; goal is 2 L for upcoming pancreatic stent placement. - currently on portable O2 compressor which delivers on demand versus continuous so oxygen level in office is in 80s. Patient reports that is typical for her and when she is at home on her continuous compressor, she will be in the 90s. 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 - Concerns about potential need for ventilator post-surgery. - Under care of Dr. Sebastian and Ani at [facility]. - No recent infections, fever, or chills. - On breathing treatments 4 times a day. - Spot found on right lung. - Former 2 PPD smoker, now reduced to 7 cigarettes/day; uses nicotine patch at night. Pancreatic Stones and chronic pancreatitis: - Undergoing treatment for pancreatic stones; awaiting stent placement. - Concerns about oxygen levels during surgery; GI and anesthesia team involved and awaiting for lower oxygen needs to proceed with surgery. - No longer consuming alcohol. REVIEW OF SYSTEMS See HPI PAST MEDICAL HISTORY Diagnosis Date Acute exacerbation of chronic obstructive airways disease (HCC) Alcohol dependence in remission (HCC) 07/10/2015 Alcohol use disorder 08/27/2017 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 pancreatitis (HCC) Alcoholic hepatitis (HCC) 05/18/2012 Alcoholic liver disease (HCC) 11/16/2013 Anemia Anxiety with depression Arthritis Asthma (HCC) Chronic hypoxemic respiratory failure (HCC) COPD (chronic obstructive pulmonary disease) (HCC) 05/25/2012 DDD (degenerative disc disease), cervical 09/03/2018 Diaphragmatic hernia without mention of obstruction or gangrene Diarrhea Diverticulosis GERD (gastroesophageal reflux disease) Hemorrhoids HLD (hyperlipidemia) HTN (hypertension) Human papillomavirus in conditions classified elsewhere and of unspecified site Irritable bowel syndrome with both constipation and diarrhea 08/27/2017 Lumbar disc disease with radiculopathy 06/18/2012 Other and unspecified alcohol dependence, unspecified drinking behavior Ovarian cyst, right 12/27/2012 Pancreatitis chronic 05/26/2011 Pneumonia of both lungs due to infectious organism 2017 Severe protein-calorie malnutrition (HCC) 01/07/2019 Stage 3 severe COPD by GOLD classification ([facility]) 2018 Tobacco use greater than 30 years Unspecified hemorrhoids without mention of complication Urine, incontinence, stress female 11/24/2014 PAST SURGICAL HISTORY Procedure Laterality Date APPENDECTOMY at age 14 COLONOSCOPY 04/15/[address], [address] Paul Perez. COLONOSCOPY 01/23/2015 2-Tubular adenomas. Dr. Víctor Lopez. COLONOSCOPY 07/29/2017 normal COLONOSCOPY - DIAGNOSTIC 01/10/2021 10 yr interval EGD 10/03/[address] Paul Perez. EGD 07/29/2017 mild gastritis, otherwise normal EGD 01/10/2021 EGD EUS 12/05/2019 mild gastritis, chronic pancreatitis with PD stone L'SCOPE CHOLECYSTECTOMY 06/14/2021 TUBAL LIGATION HX 1986 ALLERGIES Bactrim [Sulfamethoxazole-Trimethoprim], Hydrocodone, Penicillins, and Valium [Diazepam] MEDICATIONS colchicine 0.6 mg tablet Take 2 pills x1 now then take 1 tablet BID until gone gabapentin (NEURONTIN) 300 mg capsule Take 1 capsule by mouth two times a day for 30 days. albuterol (PROVENTIL) 2.5 mg /3 mL (0.083 %) nebulizer solution Use 3 mL via nebulizer one time only for 1 dose. Use over 5-15minutes. ondansetron orally disintegrating (ZOFRAN ODT) 4 mg disintegrating tablet Take 1 tablet by mouth every 6 hours as needed for nausea/vomiting. pantoprazole DR (PROTONIX) 40 mg tablet Take 1 tablet by mouth once daily. metoprolol tartrate, short acting, (LOPRESSOR) 25 mg tablet Take 1 tablet by mouth two times a day. amLODIPine (NORVASC) 5 mg tablet Take 1 tablet by mouth once daily. (more content not included)... [facility] 01-13-2025 History of Presen t illness Narrative CC: Patient presents with: Recheck: Follow up HPI Gracie Banuelos is a 59 year old female who presents today for gout concerns. Recording using GrexIt software for draft documentation of the visit was discussed with the patient/authorized patient support representative; all questions welcomed and answered. Patient/authorized patient support representative agreed to proceed Gout: - Under care of Dr. Del [facility] at [facility]. - was told it was gout which she has been treated with by them before and was instructed to see her PCP for treatment - Recent exacerbation in right foot, with swelling and pain in toes, especially at night. Similar presentation as past exacerbations. - Per patient, last exacerbation about a week ago, treated with morphine shot in the ER - Takes colchicine for gout, last used a couple of months ago asa ordered by her vocational training teacher. 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 - Previously on 12 L of oxygen, now reduced to 5 L; goal is 2 L for upcoming pancreatic stent placement. - currently on portable O2 compressor which delivers on demand versus continuous so oxygen level in office is in 80s. Patient reports that is typical for her and when she is at home on her continuous compressor, she will be in the 90s. 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 - Concerns about potential need for ventilator post-surgery. - Under care of Dr. Sebastian and Ani at [facility]. - No recent infections, fever, or chills. - On breathing treatments 4 times a day. - Spot found on right lung. - Former 2 PPD smoker, now reduced to 7 cigarettes/day; uses nicotine patch at night. Pancreatic Stones and chronic pancreatitis: - Undergoing treatment for pancreatic stones; awaiting stent placement. - Concerns about oxygen levels during surgery; GI and anesthesia team involved and awaiting for lower oxygen needs to proceed with surgery. - No longer consuming alcohol. REVIEW OF SYSTEMS See HPI PAST MEDICAL HISTORY Diagnosis Date Acute exacerbation of chronic obstructive airways disease (HCC) Alcohol dependence in remission (HCC) 07/10/2015 Alcohol use disorder 08/27/2017 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 pancreatitis (HCC) Alcoholic hepatitis (HCC) 05/18/2012 Alcoholic liver disease (HCC) 11/16/2013 Anemia Anxiety with depression Arthritis Asthma (HCC) Chronic hypoxemic respiratory failure (HCC) COPD (chronic obstructive pulmonary disease) (HCC) 05/25/2012 DDD (degenerative disc disease), cervical 09/03/2018 Diaphragmatic hernia without mention of obstruction or gangrene Diarrhea Diverticulosis GERD (gastroesophageal reflux disease) Hemorrhoids HLD (hyperlipidemia) HTN (hypertension) Human papillomavirus in conditions classified elsewhere and of unspecified site Irritable bowel syndrome with both constipation and diarrhea 08/27/2017 Lumbar disc disease with radiculopathy 06/18/2012 Other and unspecified alcohol dependence, unspecified drinking behavior Ovarian cyst, right 12/27/2012 Pancreatitis chronic 05/26/2011 Pneumonia of both lungs due to infectious organism 2018 Severe protein-calorie malnutrition (HCC) 01/07/2019 Stage 3 severe COPD by GOLD classification (HCC) 2018 Tobacco use greater than 30 years Unspecified hemorrhoids without mention of complication Urine, incontinence, stress female 11/24/2014 PAST SURGICAL HISTORY Procedure Laterality Date APPENDECTOMY at age 14 COLONOSCOPY 04/15/2011 Hemorrhoids, Diverticulosis. Dr. Paul Perez. COLONOSCOPY 01/23/2015 2-Tubular adenomas. Dr. Víctor Lopez. COLONOSCOPY 07/29/2017 normal COLONOSCOPY - DIAGNOSTIC 01/10/2021 10 yr interval EGD 10/03/[address] Paul Perez. EGD 07/29/2017 mild gastritis, otherwise normal EGD 01/10/2021 EGD EUS 12/05/2019 mild gastritis, chronic pancreatitis with PD stone L'SCOPE CHOLECYSTECTOMY 06/14/2021 TUBAL LIGATION HX 1986 ALLERGIES Bactrim [Sulfamethoxazole-Trimethoprim], Hydrocodone, Penicillins, and Valium [Diazepam] MEDICATIONS colchicine 0.6 mg tablet Take 2 pills x1 now then take 1 tablet BID until gone gabapentin (NEURONTIN) 300 mg capsule Take 1 capsule by mouth two times a day for 30 days. albuterol (PROVENTIL) 2.5 mg /3 mL (0.083 %) nebulizer solution Use 3 mL via nebulizer one time only for 1 dose. Use over 5-15minutes. ondansetron orally disintegrating (ZOFRAN ODT) 4 mg disintegrating tablet Take 1 tablet by mouth every 6 hours as needed for nausea/vomiting. pantoprazole DR (PROTONIX) 40 mg tablet Take 1 tablet by mouth once daily. metoprolol tartrate, short acting, (LOPRESSOR) 25 mg tablet Take 1 tablet by mouth two times a day. amLODIPine (NORVASC) 5 mg tablet Take 1 tablet by mouth once daily. hydrOXYzine HCl (ATARAX) 25 mg tablet Take 1 tablet by mouth three times a day as needed for itching/rash. MUCINEX D MAXIMUM STRENGTH 120-1,200 mg tab ER 12 hr Take 1 tablet by mouth as needed. Cholecalciferol, Vitamin D3, 50 mcg (2,000 unit) cap Take 1 capsule by mouth once daily. predniSONE (DELTASONE) 20 mg tablet Take 2 tablets by mouth once daily. (Patient not taking: Reported on 11/02/2024) ziprasidone (GEODON) 40 mg capsule Take 1 capsule by mouth at bedtime as needed. hydrOXYzine pamoate (VISTARIL) 25 mg capsule Take 1 capsule by mouth daily at bedtime. lisinopril (ZESTRIL) 10 mg tablet Take 1 tablet by mouth once daily. simvastatin (ZOCOR) 20 mg tablet Take 1 tablet by mouth daily at bedtime. Benzonatate 200 mg capsule Take 200 mg by mouth three times a day as needed. (Patient not taking: Reported on 11/07/2024) Blood Pressure Monitor Home blood pressure monitor cyclobenzaprine (FLEXERIL) 10 mg tablet Take 1 tablet by mouth twice daily as needed for muscle spasm. albuterol HFA (VENTOLIN HFA) 90 mcg/actuation inhaler Inhale 2 Puffs as instructed four times daily as needed. ferrous sulfate (SLOW FE) 140 mg (45 mg iron) TbER Take 1 tablet by mouth twice daily with meals. mirtazapine (REMERON) 45 mg tablet Prescribed by Dr. Talamantes. multivitamin tablet Take 1 tablet by mouth once daily. ARIPiprazole (ABILIFY) 5 mg tablet 5 mg once daily. OXYGEN, HOME THERAPY, Inhale as instructed as directed. Patient is on 2-3 liters COMPOUNDED PRESCRIPTION Pulse Oximetry COMPOUNDED PRESCRIPTION nebulizer supplies (tubing) FAMILY HISTORY Problem Relation Age of Onset Diabetes Mother Hypertension Mother Rheumatologic disease Mother other (lung cancer) Mother Lung Cancer Mother Diabetes Sister Cervical Cancer Sister X 2 Hypertension Brother Lung Cancer Brother Social History Tobacco Use Smoking status: Every Day Current packs/day: 0.00 Average packs/day: 0.5 packs/day for 30.0 years (15.0 ttl pk-yrs) Types: Cigarettes Start date: 10/19/1992 Last attempt to quit: 10/19/2022 Years since quittin.2 Smokeless tobacco: Never Vaping Use Vaping status: Never Used Substance Use Topics Alcohol use: Not Currently Comment: Alcoholic - November 2020 - last drink Drug use: Not Currently Types: Marijuana Comment: rarely- last time used was Oct 2019 PHYSICAL EXAM BP 108/60 Pulse 88 Resp 16 Wt 62.6 kg (138 lb) LMP 05/29/2010 SpO2 (!) 85% BMI 24.45 kg/m General Appearance: well appearing, in no acute distress, alert Lungs: Lungs tight and diminished throughout. No wheezing, rhonchi, rales. Heart: RRR without murmur, gallop, or rubs. No ectopy RLE - Right ankle, foot and toes with small amount of non-pitting edema, tender, but no redness, open areas or drainage. Health maintenance reviewed with patient: HIV Screening Never done Alpha-1 Antitrypsin Deficiency Screening Never done Shingrix Vaccine(1 of 2) Never done Cervical Cancer Screening due on 07/05/2020 Mammogram Screening due on 08/28/2021 RSV Vaccine(1 - Risk 60-74 years 1-dose series) Never done Pneumococcal Vaccine: 50+(3 of 3 - PCV20 or PCV21) due on 08/31/2023 Colorectal Cancer Screening due on 01/11/2024 Covid-19 Vaccine(3 - season) due on 05/29/2024 Annual PCP Team Chronic Disease Visit due on 12/19/2025 BP Controlled (<130/80) due on 12/19/2025 Diabetes Screening due on 12/20/2027 Lipid Screening due on 01/10/2029 Spirometry Completed Influenza Vaccine Completed Hepatitis C Screening Completed DTaP,Tdap,Td Vaccine Discontinued DATA REVIEWED: Most recent labs Assessment/Plan 1. Gout, unspecified cause, unspecified chronicity, unspecified site (M10.9) - Recent exacerbation with swelling and pain in the right foot, no erythema or streaking observed. Tender on exam. - Previous effective treatment with colchicine confirmed; instructed to take 2 tablets immediately, followed by 1 tablet twice daily until go - Advised to monitor for improvement; if symptoms persist or worsen, further evaluation will be necessary. - Recommended tart keene juice for anti-inflammatory benefits. 2. Calculus of pancreatic duct (HCC) (K86.89) 3. Chronic recurrent pancreatitis (HCC) (K86.1) - Undergoing evaluation and management by GI specialists at [facility]. - Awaiting pancreatic stent placement; pulmonary status being optimized to 2L O2 to facilitate safe anesthesia. - Continue with recommendations by GI 4. Chronic obstructive pulmonary disease, unspecified COPD type (HCC) (J44.9) 5. Pulmonary emphysema, unspecified emphysema type (HCC) (J43.9) - Severe COPD with 30-37% lung function; currently on 5L O2, aiming to reduce to 2L for upcoming procedure. - Under care of Dr. Sebastian and Ani at [facility]. - No recent infections, fever, or chills reported. - Continues with nebulizer treatments four times daily. - Encouraged use of incentive spirometer to aid in pulmonary clearance. 6. Tobacco use disorder (F17.200) - Significant reduction in smoking from two packs per day to seven cigarettes per day. - Utilizing nicotine patches at night to manage cravings. - Commended for progress and encouraged to continue efforts towards cessation. Prescription instructions reviewed with patient as applicable. Potential red flag symptoms discussed with the patient. Reviewed appropriate action plan to take if red flag symptoms occur. Patient agreeable to treatment plan. Soila Easton APRN.CNP documented in this encounter [facility] 01-12-2025 Telephone encounter Note Pt has appointment with Soila Easton Supervisor [employer] on 01/14/24. [facility] 01-12-2025 Miscellaneous Notes Pt has appointment with Soila Easton Supervisor [employer] on 01/14/24. Spoke with pt, she states she has urinary incontinence and trouble holding her urine when she is outside her home. Sent rx to [facility]. FYI: Pt scheduled appt tomorrow with Soila Easton to discuss multiple concerns. Aleta Carroll MA Please confirm with her, the symptoms for which she needs the pull ups, Regards, Annmarie Elkins MD Pt called in and reports she can get pull ups paid for through [employer]. She states the provider jst has to send an order to a pharmacy and they will pay for them. I asked her what size she wore and she said M or L. Pt said she wanted provider to send order to [facility]. I asked if they had sent them there for her before, and the Pt said they have not. Pt reports she is having surgery on her Pancrease so her stomach will be going down. I told the Pt the provider usually has to send the orders to a DME not a pharmacy, but I would have them call her tomorrow if they had any questions. Please call and advise. Marge Perkins RN documented in this encounter [facility] 01-10-2025 Telephone encounter Note Spoke with pt, she states she has urinary incontinence and trouble holding her urine when she is outside her home. Sent rx to [facility]. FYI: Pt scheduled appt tomorrow with Soila Easton to discuss multiple concerns. Aleta Carroll MA [facility] 01-09-2025 Telephone encounter Note Please confirm with her, the symptoms for which she needs the pull ups, RegardsAnnmarie MD [facility] 01-09-2025 Telephone encounter Note Pt called in and reports she can get pull ups paid for through [employer]. She states the provider jst has to send an order to a pharmacy and they will pay for them. I asked her what size she wore and she said M or L. Pt said she wanted provider to send order to [facility]. I asked if they had sent them there for her before, and the Pt said they have not. Pt reports she is having surgery on her Pancrease so her stomach will be going down. I told the Pt the provider usually has to send the orders to a DME not a pharmacy, but I would have them call her tomorrow if they had any questions. Please call and advise. Marge Perkins, RN [facility] 01-09-2025 Telephone encounter Note Disp Refills Start End gabapentin (NEURONTIN) 300 mg capsule 60 capsule 0 01/09/2025 02/08/2025 Sig: Take 1 capsule by mouth two times a day for 30 days. Sent to pharmacy as: gabapentin (NEURONTIN) 300 mg capsule Class: Normal Route: ORAL Order: [id number] Cosign for Ordering: Required by Juan Senior APRN.DAYTIME CAREGIVER E-Prescribing Status: Sent to pharmacy (01/09/2025 12:43 PM EDT) [facility] Work Phone: 01-09-2025 Miscellaneous Notes Disp Refills Start End gabapentin (NEURONTIN) 300 mg capsule 60 capsule 0 01/09/2025 02/08/2025 Sig: Take 1 capsule by mouth two times a day for 30 days. Sent to pharmacy as: gabapentin (NEURONTIN) 300 mg capsule Class: Normal Route: ORAL Order: [id number] Cosign for Ordering: Required by Juan Senior APRN.DAYTIME CAREGIVER E-Prescribing Status: Sent to pharmacy (01/09/2025 12:43 PM EDT) Patient called the office stating that she missed her pain management appointment and would like to know if the office would be able to prescribe her some pain medication until she is able to have her appointment in February. Please review and advise. Dayana Martell Administrative Underwriter documented in this encounter [facility] 01-09-2025 Telephone encounter Note I spoke with Gracie - discussed for severe pain needs to be addressed at ED- she states that OTC pain meds dont really seem to help. Tramadol in past has helped. She remains on 5Liters of O2 NC - follow up with Pulmonology in several weeks. She does have some nausea- but Zofran SL helps. Message sent to Juan Senior for recommendations. Juan Bloom LPN [facility] Work Phone: 01-09-2025 Miscellaneous Notes I spoke with Gracie - discussed for severe pain needs to be addressed at ED- she states that OTC pain meds dont really seem to help. Tramadol in past has helped. She remains on 5Liters of O2 NC - follow up with Pulmonology in several weeks. She does have some nausea- but Zofran SL helps. Message sent to Juan Senior for recommendations. Juan Bloom LPN Pt is calling asking that someone please contact her. She is in extreme pain and missed her pain management appt She's left several messages but is asking if you can put a script in for pain? Raisa Jimenez MA documented in this encounter [facility] 01-09-2025 Telephone encounter Note Pt is calling asking that someone please contact her. She is in extreme pain and missed her pain management appt She's left several messages but is asking if you can put a script in for pain? Raisa Jimenez MA [facility] 01-06-2025 Telephone encounter Note Patient called the office stating that she missed her pain management appointment and would like to know if the office would be able to prescribe her some pain medication until she is able to have her appointment in February. Please review and advise. Dayana Martell Administrative Underwriter [facility] 01-05-2025 Telephone encounter Note Patient called. She missed her pain management appointment today. She was rescheduled for March 14. She would like to speak to you regarding this today, if possible. [phone] (home) [facility] Work Phone: 01-05-2025 Miscellaneous Notes Patient called. She missed her pain management appointment today. She was rescheduled for March 14. She would like to speak to you regarding this today, if possible. [phone] (home) documented in this encounter [facility] 01-03-2025 Telephone encounter Note Prescription Refill Information The patient has been identified by name and date of : Yes Caregiver verified no other encounters exist for this prescription request: Yes Caregiver confirmed with patient/requestor that no other refills are due, in the near future, with this provider at this time: Yes NOTE: patient is completely out of this medication. Please send today [facility], per patient she was told to ask PCP to fill this The last office visit in the department: 12/19/2024 Does the patient have a future office visit with this provider/department: No Requested Prescriptions Pending Prescriptions Disp Refills albuterol (PROVENTIL) 2.5 mg /3 mL (0.083 %) nebulizer solution 3 mL 0 Sig: Use 3 mL via nebulizer one time only for 1 dose. Use over 5-15minutes. [facility] January 03, 2025 12:24 PM [facility] 01-03-2025 Miscellaneous Notes Prescription Refill Information The patient has been identified by name and date of : Yes Caregiver verified no other encounters exist for this prescription request: Yes Caregiver confirmed with patient/requestor that no other refills are due, in the near future, with this provider at this time: Yes NOTE: patient is completely out of this medication. Please send today [facility], per patient she was told to ask PCP to fill this The last office visit in the department: 12/19/2024 Does the patient have a future office visit with this provider/department: No Requested Prescriptions Pending Prescriptions Disp Refills albuterol (PROVENTIL) 2.5 mg /3 mL (0.083 %) nebulizer solution 3 mL 0 Sig: Use 3 mL via nebulizer one time only for 1 dose. Use over 5-15minutes. Jordana Estes January 03, 2025 12:24 PM documented in this encounter [facility] 01-02-2025 Telephone encounter Note Left message for patient to return call. When patient calls, please obtain the answers to Soila Easton's questions below or transfer to nurse to get the requested information. Eva Guardado [facility] 01-02-2025 Telephone encounter Note Hesitant to send the ibuprofen. What has she been taking for pain? She was jsut in hospital with EGD and found blood in her mouth any recent Gi bleeds? Ibuprofen can cause GI bleeds. Thank you Soila Easton APRN.CNP [facility] 01-02-2025 Telephone encounter Note Prescription Refill Information The patient has been identified by name and date of : Yes Caregiver verified no other encounters exist for this prescription request: Yes Caregiver confirmed with patient/requestor that no other refills are due, in the near future, with this provider at this time: Yes The last office visit in the department: 12/19/24 Does the patient have a future office visit with this provider/department: No Requested Prescriptions Pending Prescriptions Disp Refills ondansetron orally disintegrating (ZOFRAN ODT) 4 mg disintegrating tablet 30 tablet 1 Sig: Take 1 tablet by mouth every 6 hours as needed for nausea/vomiting. ibuprofen (MOTRIN) 400 mg tablet 100 tablet 1 Sig: TAKE 1 TABLET BY MOUTH EVERY SIX HOURS NEEDED Chen Chauhan LPN January 02, 2025 8:30 AM [facility] 01-01-2025 Radiology Diagnostic study note [facility] 01-01-2025 Discharge summary Note Date/Time January 01, 2025 10:06pm [facility] Medical Records Department [address] [place] [address] Emergency Department Summary 01/01/25 MR#: [id number] Acct: [id number] Name: GRACIE BANUELOS Rep #:[id number] : 1965 59 From: Leandro Sanchez MD PCP: Dr. Annmarie Elkins MD Status:REG E R Location: ED HPI HPI - GI History of Present Illness Chief Complaint: Abd Pain Narrative Narrative: 59-year-old female past medical history of COPD wears 5 L of oxygen, has had problems with pancreatitis/chronic pancreatitis in the past states that over thelast few days she has had nausea and epigastric pain. 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 She denies any recent fevers or chills, or cough. She states over the last few days she has been nauseated and has epigastric painconsistent with her previous pancreatitis. She states she is post to get a stent in her pancreas but once again can have it performed. She is post to follow-up with pain management on January 05, 4 days from now. [facility] Medical History Stenosis of left subclavian artery Pulmonary nodule Acute hypoxic respiratory failure Chronic pancreatitis Pancreatic stones HLD (hyperlipidemia) History of alcohol abuse Pneumonia Acute on chronic hypoxic respiratory failure Stage 3 severe COPD by GOLD classification Asthma COPD (chronic obstructive pulmonary disease) Arthritis History of back problems Anxiety and depression Chronic pancreatitis HPV (human papilloma virus) infection Anemia Tobacco abuse GERD (gastroesophageal reflux disease) Benign hypertension Home Medications ?Medication ?Instructions ?Recorded ?Last Taken ?Type cholecalciferol (vitamin D3) 50 50 mcg PO DAILY SUPPLE MENT 12/29/18 10/31/22 History mcg (2,000 unit) capsule aripiprazole 5 mg tablet (Abilify) 5 mg PO DAILY mood 01/22/21 10/31/22 History mirtazapine 45 mg tablet 45 mg PO QHS sleep 01/16/22 01/01/24 History metoprolol tartrate 25 mg tablet 25 mg PO BID 30 days #60 tabs 01/05/24 Unknown Rx amlodipine 10 mg tablet 5 mg PO DAILY 01/26/24 Unkno wn History lisinopril 10 mg tablet 10 mg PO QDAY 01/26/24 Unkno wn History albuterol sulfate 90 mcg/actuation 2 puff inhalation Q 4H PRN 05/11/24 Unknown Rx aerosol inhaler (Ventolin HFA) shortness of breath or wheezing #18 grams tramadol 100 mg tablet 100 mg PO Q6H PRN pain 5 day s #20 12/12/24 Unknown Rx tabs nicotine 14 mg/24 hr daily 1 patch transdermal ONCE #2 8 ea 12/14/24 Unknown Rx transdermal patch guaifenesin 100 mg/5 mL oral liquid 200 mg (10 mL) PO Q4H PRN 12/16/24 Unknown Rx congestion #473 mL budesonide 160 mcg-glycopyr 9 2 inh inhalation BID #10 .7 grams 12/23/24 Unknown Rx mcg-formot 4.8 mcg/actuation HFA inhaler (Breztri Aerosphere) hydroxyzine HCl 25 mg tablet 25 mg PO TID 12/23/24 Unk nown History ipratropium 0.5 mg-albuterol 3 mg 3 ml inhalation Q4H PRN shortness 12/23/24 Unknown Rx (2.5 mg base)/3 mL nebulization of breath or wheezing #90 mL soln meloxicam 7.5 mg tablet 7.5 mg PO QDAY 12/23/24 Unkn own History ondansetron 4 mg disintegrating 4 mg PO Q6 PRN nausea/ vomiting 12/23/24 Unknown History tablet spacer #1 ea 12/23/24 Unknown Rx prednisone 20 mg tablet 40 mg (2 x 20 mg) PO DAILY # 8 12/24/24 Unknown Rx TABLETS tramadol 50 mg tablet 50 mg PO Q6H PRN pain #12 ta bs 12/24/24 Unknown Rx Shower chair #1 ea 12/30/24 Unknown Rx tramadol 50 mg tablet 50 mg PO Q6H PRN pain 3 days #12 01/01/25 Unknown Rx tabs Allergy/AdvReac Type Severity Reaction Status Date / Time clindamycin Allergy Intermediate Hives Verified 01/01/25 20:30 Penicillins Allergy Hives Verified 01/01/25 20:30 sulfamethoxazole (From Allergy Other Verified 01/01/25 20:30 Bactrim) trimethoprim (From Bactrim) Allergy Other Verified 01/01/25 20:30 hydrocodone (From Bode) AdvReac Itching Verified 01/01/25 20:30 Family History Mother Diabetes Hypertension Heart disease High cholesterol Arthritis Thyroid disorder Brother Hypertension Sister Cancer cervical Thyroid disorder Father Kidney disease Daughter Thyroid disorder Surgical History History of tubal ligation History of colonoscopy History of appendectomy Social History household members: family Smoking Status: Current some day smoker tobacco type: cigarettes Tobacco: How many years used: 30 second hand exposure: Yes alcohol intake: former details: Sober since 2020. substance use type: does not use caffeine: Yes ROS ROS ED ROS Narrative Constitutional: No fever, no chills. Cardiovascular: No chest pain. No palpitations. No pedal edema. Respiratory: No cough, constant shortness of breath. Abdominal: Positive epigastric abdominal pain. Positive nausea. No vomiting. Genitourinary: No dysuria. No hematuria. Musculoskeletal: No myalgias. Right foot pain/gout flare. Neurologic: No headaches. No dizziness. No lightheadedness. EXAM Physical Exam Narrative Exam Narrative: Afebrile. Vital signs noted. Nontoxic-appearing. Cardiovascular examination reveals mild tachycardia. Decreased breath sounds bilateral bases, moving a good amount of air. Speaking in full sentences. Abdomen soft with mild tenderness palpation in the epigastrium but no guarding or rebound. Neurological examination nonfocal and nonlateralizing. Const Vital Signs: 01/01/25 20:27 01/01/25 20:31 01/01/25 21:01 Temperature 97.7 F L 97.7 F L Temperature Source Oral Oral Pulse Rate 113 H 113 H Respiratory Rate 24 H 24 H Blood Pressure 111/74 111/74 Blood Pressure Mean 86 86 Pulse Ox 80 80 Oxygen Delivery Method Nasal Cannula Nasal Cannula Nasal Cannula Oxygen Flow Rate (L/min) 5 5 5 MDM MDM MDM Narrative Medical decision making narrative: Differential diagnosis includes but not limited to pneumonia versus pneumothoraxversus chronic COPD/respiratory failure. I reviewed her prior ED visit from a few weeks ago. She has been on prednisone and her white count had been coming down. I reviewed her laboratory work currently, and her white count continues to decrease but is still elevated at 16.5. I feel this is probably secondary toher chronic prednisone use. Hemoglobin normal at 12.0 with platelet count elevated 553 which could be more of an acute phase reactant. Sodium is low at 130 with chloride 91. She was bolused normal saline 1 L intravenously. [id number] with a normal anion gap of 11. LFTs show alk phos slightly elevated at 111 which I think is nonspecific but normal AST and normal ALT. Lipase is normal at75. I do not feel that she has an acute pancreatitis when compared to prior labs she has had elevation into at least the 500s. EKG obtained and interpretedby myself independently as sinus tachycardia [address] changes. No STEMI. I do not feel that more prednisone is indicated. She states that her gout is acting up and her right foot but she sees her doctor on Thursday. She states that he usually does an x-ray, and then gives her a shot but she does not know what it is. She has already received morphine for analgesia. I do not feel that she has a cellulitis of her foot that requires antibiotics, I do not feel x-ray is indicated. Chest x-ray obtained and interpreted by myself independently shows no evidence of pneumonia or consolidation, no pneumothorax. I reviewed the radiology reportwhich confirms my independent interpretation and comments on bibasilar interstitial markings but no consolidation. At this point in time, as she has a normal lipase and no evidence of an acute pancreatitis, I do feel that she can be discharged to follow-up with pain management as I think she has more of a chronic pain type of picture given that she was just seen here a few weeks ago as well. She states that she was told that as she does not have a pain appointment until the 10th that she was told tocome to the emergency department for short course of therapy. She is agreeable to receiving tramadol 50 mg which she has taken previously. She was given 1 dose here prior to discharge and prescription written for 12 tablets. Smoking cessation was discussed with the patient. She will continue her home oxygen useand take her previous medications as directed. Return instructions were reviewed. Patient motivated for discharge. Disposition is discharged home in stable condition. History & Record Review Discussion w/independent historian: Patient Additional record(s) reviewed:: Prior labs Lab Data Attestation: I reviewed the patient's lab results. Labs: Laboratory Results - last 24 hr 01/01/25 20:53 WBC 16.5 H RBC 4.51 Hgb 12.0 Hct 39.1 MCV 86.7 MCH 26.6 L MCHC 30.7 L RDW Std Deviation 47.7 H RDW Coeff of Min 15.2 H Plt Count 553 H MPV 8.9 Neut % (Auto) Not Reportable Sodium 130 L Potassium 4.0 Chloride 91 L Carbon Dioxide 28.7 Anion Gap 11 BUN 7 Creatinine 0.76 Estim Creat Clear Calc 69.70 Est GFR (MDRD) Non-Af 89 BUN/Creatinine Ratio 8.7 L Glucose 111 H Calcium 9.0 Total Bilirubin < 0.15 AST 13 ALT 8 Alkaline Phosphatase 111 H Total Protein 6.9 Albumin 3.7 Globulin 3.2 Albumin/Globulin Ratio 1.2 Lipase 75 Radiography Diagnostic Testing: Clinical Impression(s) from Imaging Studies Chest X-Ray 01/01/25 21:00 IMPRESSION: Prominent bibasilar interstitial markings. No focal consolidation. [facility] Chief Complaint: Abd Pain ED Provider: Leandro Sanchez Dx/Rx/DC Orders Clinical Impression: Chronic pancreatitis, Abdominal pain, Chronic respiratory failure with hypoxia Instructions: ED Abdominal Pain Unkn Cause Fem, ED Chronic Pain Prescriptions: New tramadol 50 mg tablet 50 mg PO Q6H PRN (Reason: pain) 3 Days Qty: 12 0RF No Action mirtazapine 45 mg tablet 45 mg PO QHS amlodipine 10 mg tablet 5 mg PO DAILY Rx Instructions: Hold for SBP less than 130 mmHg lisinopril 10 mg tablet 10 mg PO QDAY albuterol sulfate [Ventolin HFA] 90 mcg/actuation HFA aerosol inhaler 2 puff INHALATION Q4H PRN (Reason: shortness of breath or wheezing) Qty: 18 11RF meloxicam 7.5 mg tablet 7.5 mg PO QDAY ondansetron 4 mg tablet,disintegrating 4 mg PO Q6 PRN (Reason: nausea/vomiting) hydroxyzine HCl 25 mg tablet 25 mg PO TID ipratropium-albuterol 0.5 mg-3 mg(2.5 mg base)/3 mL solution for nebulization 3 ml inhalation Q4H PRN (Reason: shortness of breath or wheezing) Qty: 90 0RF Rx Instructions: until breathing returns to target peak flow/parameters Breztri Aerosphere 160-9-4.8 mcg/actuation HFA aerosol inhaler 2 inh inhalation BID Qty: 10.7 6RF (DME) spacer See Rx Instructions .ROUTE .MEDSUPPLY Qty: 1 0RF Rx Instructions: As directed cholecalciferol (vitamin D3) 2,000 UNIT capsule 50 mcg PO DAILY aripiprazole [Abilify] 5 mg Tablet 5 mg PO DAILY metoprolol tartrate 25 mg Tablet 25 mg PO BID 30 Days Qty: 60 0RF Rx Instructions: Hold for heart less than 50 or systolic blood pressure less than 100 mmHg. tramadol 100 mg tablet 100 mg PO Q6H PRN (Reason: pain) 5 Days Qty: 20 0RF prednisone 20 mg tablet 40 mg PO DAILY Qty: 8 0RF tramadol 50 mg tablet 50 mg PO Q6H PRN (Reason: pain) Qty: 12 0RF nicotine 14 mg/24 hr patch 24 hour 1 patch transdermal ONCE Qty: 28 1RF guaifenesin 100 mg/5 mL liquid 200 mg PO Q4H PRN (Reason: congestion) Qty: 473 0RF (DME) Shower chair See Rx Instructions .Route .MEDSUPPLY Qty: 1 0RF Rx Instructions: As directed Primary Care Provider: Annmarie Elkins Referrals: Annmarie Elkins MD [Primary Care Provider] - 1-2 Days if not improving Activity Restrictions/Additional Instructions: Follow-up with pain management on January 05 as scheduled. Quit smoking. Return with fever, increased pain, new or worsening symptoms. Print Language: Emirati Disposition Disposition: Home, Self Care What to do if you have Problems For any increased pain, shortness of breath, bleeding, nausea or vomiting, chestpain, or any unexpected problems, contact your Primary Care Provider. Call [facility] ([phone]) or report to the closest Emergency Room. Call 911 if necessary. 01/01/252205 <Electronically signed by Leandro Sanchez MD> Cosigner Signature (if applicable): CC: Dr. Annmarie Elkins MD ~ Signed [facility] Work Phone: 1(674) 417-886604-05-2025 Telephone encounter Note* Telephone Encounter - Tyra Meraz RN - 12/31/2024 2:32 PM EDT Patient calling with request for medication/refill: Patient/caregiver requesting refill of Motrin and Zofran be called to [facility] pharmacy at [phone]., Allergies reviewed: Yes, Medication, dosage and sig reviewed: Yes. , Do you have enough medication to last until the office reopens? Yes. ,and Have you contacted your pharmacy to ask for enough medication to get by until the office reopens? No. Patient denies any new or worsening symptoms of which a provider is not aware: Yes. [facility]04-05-2025 Miscellaneous Notes* Telephone Encounter - Tyra Meraz RN - 12/31/2024 2:32 PM EDT Patient calling with request for medication/refill: Patient/caregiver requesting refill of Motrin and Zofran be called to [facility] pharmacy at [phone]., Allergies reviewed: Yes, Medication, dosage and sig reviewed: Yes. , Do you have enough medication to last until the office reopens? Yes. ,and Have you contacted your pharmacy to ask for enough medication to get by until the office reopens? No. Patient denies any new or worsening symptoms of which a provider is not aware: Yes. documented in this encounterL[facility] Telephone encounter Note * Telephone Encounter - Marge Handy RN - 12/31/2024 2:08 PM EDT Patient calling with medication/refill: Patient/caregiver requesting refill of ibuprofen be called to [facility] ([place]) pharmacy at [phone]., Allergies reviewed: Yes, Medication, dosage and sig reviewed: Yes. , Do you have enough medication to last until the office reopens? No. , and Have you contacted your pharmacy to ask for enough medication to get by until the office reopens? N/A (noscript since 2021). Patient states that she takes 400 mg of ibuprofen by mouth every six hours as needed for pain related to known pancreatitis. She is not scheduled to see the pain management team until 01/05/25. She also requested a refill of ondansetron but per Epic, she should have a refill available. Advised patient to call back if pharmacy is unable to see the refill order. Patient denies any new or worsening symptoms of which a provider is not aware: Yes. 1438: As this is not a current medication (last filled in 2021), contacted the patient and advised her that it would be addressed on Thursday (01/02) when her primary doctor returns to the office. Patient verbalized understanding and had no further questions or concerns. [facility] Work Phone: 1(600) 951-972104-05-2025 Miscellaneous Notes* Telephone Encounter - Marge Handy RN - 12/31/2024 2:08 PM EDT Patient calling with medication/refill: Patient/caregiver requesting refill of ibuprofen be called to [facility] ([place] pharmacy at [phone]., Allergies reviewed: Yes, Medication, dosage and sig reviewed: Yes. , Do you have enough medication to last until the office reopens? No. , and Have you contacted your pharmacy to ask for enough medication to get by until the office reopens? N/A (noscript since 2021). Patient states that she takes 400 mg of ibuprofen by mouth every six hours as needed for pain related to known pancreatitis. She is not scheduled to see the pain management team until 01/05/25. She also requested a refill of ondansetron but per [facility], she should have a refill available. Advised patient to call back if pharmacy is unable to see the refill order. Patient denies any new or worsening symptoms of which a provider is not aware: Yes. 1438: As this is not a current medication (last filled in 2021), contacted the patient and advised her that it would be addressed on Thursday (01/02) when her primary doctor returns to the office. Patient verbalized understanding and had no further questions or concerns. documented in this encounterL[facility]04-[facility] Telephone encounter Note * Telephone Encounter - Carolyne Trimble - 12/31/2024 9:25 AM EDT Patient called stating she has pain mgmt appt on 01/05. Patient is requesting zofran, and extra strength Ibuprofen 400 mg. Patient uses [facility] [place]. [facility] Work Phone: [phone]) 743-161904-02-2025 Telephone encounter Note* Telephone Encounter - Juan Bloom LPN - 12/28/2024 3:37 PM EDT Spoke with patient - was recently admitted for COPD - was on 12 liters O2- currently at home and on5 L of Oxygen NC- her pulmonology team would like her to wait until she is down to 1 Liter O2 - prior to completing EUS/CPB. I discussed with patient that she would need her pulomonology team to send up written confirmation of proceeding with EUS/CPB We may also need patient to see PACC prior to procedure as well. Informed that I would send additional information to Juan Senior for review. Patient has Pain Management on 01/05 she does have current C/O abdominal pain- I did discuss her taking tylenol, ibuprofen to help with pain- which she states does help a bit, but is wondering if she could get some pain medication until her pain management appointment. I informed her that I would notify Juan Senior as well Juan Bloom LPN [facility] Work Phone: 1([phone]) 157-937104-02-2025 Miscellaneous Notes* Telephone Encounter - Juan Bloom LPN - 12/28/2024 3:37 PM EDT Spoke with patient - was recently admitted for COPD - was on 12 liters O2- currently at home and on5 L of Oxygen NC- her pulmonology team would like her to wait until she is down to 1 Liter O2 - prior to completing EUS/CPB. I discussed with patient that she would need her pulomonology team to send up written confirmation of proceeding with EUS/CPB We may also need patient to see PACC prior to procedure as well. Informed that I would send additional information to Juan Senior for review. Patient has Pain Management on 01/05 she does have current C/O abdominal pain- I did discuss her taking tylenol, ibuprofen to help with pain- which she states does help a bit, but is wondering if she could get some pain medication until her pain management appointment. I informed her that I would notify Juan Senior as well Juan Bloom LPN * Telephone Encounter - Noemí Self - 12/28/2024 3:14 PM EDT Patient returned call. Can be reached at: [phone] (home) * Telephone Encounter - Juan Bloom LPN - 12/28/2024 3:02 PM EDT YEIMI left for Gracie Banuelos to discuss current symptoms Offered to call office for discussion. Juan Bloom LPN * Telephone Encounter - Lyric Yeung - 12/28/2024 8:53 AM EDT Outside pulmonary function test & CT lung screen results scanned in Epic Lyric Yeung * Telephone Encounter - Dayana Bone - 12/27/2024 12:58 PM EDT Patient called the office and would like a call back to discuss current health changes. Patient stated that she had to cancel her procedure due to her recent hospital stay. Patients stated that she was in the hospital for a week due to her COPD. Please review and advise. Dayana Martell documented in this encounterLake [facility]04-02-[facility] Telephone encounter Note * Telephone Encounter - Noemí Self - 12/28/2024 3:14 PM EDT Patient returned call. Can be reached at: [phone] (home) [facility] Work Phone: [phone] 185-596904-02-2025 Telephone encounter Note* Telephone Encounter - Juan Bloom LPN - 12/28/2024 3:02 PM EDT VM left for Gracie Banuelos to discuss current symptoms Offered to call office for discussion. Juan Bloom LPN [facility]04-02-2025 Telephone encounter Note* Telephone Encounter - Lyric Yeung - 12/28/2024 8:53 AM EDT Outside pulmonary function test & CT lung screen results scanned in Epic Lyric Yeung [facility]04-01-2025 Telephone encounter Note* Telephone Encounter - Dayana Bone - 12/27/2024 12:58 PM EDT Patient called the office and would like a call back to discuss current health changes. Patient stated that she had to cancel her procedure due to her recent hospital stay. Patients stated that she was in the hospital for a week due to her COPD. Please review and advise. Dayana Martell [facility]03-28-2025 Telephone encounter Note* Telephone Encounter - Raisa Jimenez RN - 12/23/2024 12:30 PM EDT Spoke with pt and went over instructions and directions for her appt on 12/27/24. Pt wrote down verbal instructions and confirmed understanding Raisa Jimenez MA (Nell) [facility]03-28-2025 Miscellaneous Notes* Telephone Encounter - Raisa Jimenez RN - 12/23/2024 12:30 PM EDT Spoke with pt and went over instructions and directions for her appt on 12/27/24. Pt wrote down verbal instructions and confirmed understanding Raisa Jimenez MA (Nell) documented in this encounterLake [facility]03-27-2025 Telephone encounter Note * Telephone Encounter - Eileen Chavez MA - 12/22/2024 9:01 AM EDT Message sent. [facility]03-27-2025 Miscellaneous Notes* Telephone Encounter - Eileen Chavez MA - 12/22/2024 9:01 AM EDT Message sent. * Telephone Encounter - Soila Easton APRN.CNP - 12/22/2024 8:07 AM EDT I am assuming this is regards to the chest xray as ordered by tara Youngblood. If so please see her result note on the xray. If not, please specify which xray I need to address. Thank you Soila Easton APRN.CNP * Telephone Encounter - Marge Perkins RN - 12/19/2024 6:51 PM EDT Pt called in for x-ray results. I let Pt know they are not back in yet and provider would call her when they are. documented in this encounterLake [facility]03-27-2025 Telephone encounter Note * Telephone Encounter - Soila Easton APRN.CNP - 12/22/2024 8:07 AM EDT I am assuming this is regards to the chest xray as ordered by tara Youngblood. If so please see her result note on the xray. If not, please specify which xray I need to address. Thank you Soila Easton APRN.CNP [facility]03-26-2025 Telephone encounter Note* Telephone Encounter - Sylvia Chawla MA - 12/21/2024 2:05 PM EDT Pt informed Pt asking for xray results but still in process Sylvai Chawla MA [facility]03-26-2025 Miscellaneous Notes* Telephone Encounter - Sylvia Chawla MA - 12/21/2024 2:05 PM EDT Pt informed Pt asking for xray results but still in process Sylvia Chawla MA * Telephone Encounter - Tara Youngblood APRN.IGOR - 12/21/2024 9:25 AM EDT Please call patient and let her know that lab work results are improving. WBC is actually slightly improved from inpatient recent labs. Lipase level is WNL which is great. Continue as discussed in office. Thank you, Tara Youngblood APRN.DAYTIME CAREGIVER documented in this encounterLake [facility]03-26-2025 Telephone encounter Note * Telephone Encounter - Tara Youngblood APRN.CNP - 12/21/2024 9:25 AM EDT Please call patient and let her know that lab work results are improving. WBC is actually slightly improved from inpatient recent labs. Lipase level is WNL which is great. Continue as discussed in office. Thank you, Tara Youngblood APRN.DAYTIME CAREGIVER [facility] Work Phone: 1(274) 610-304603-25-2025 Nurse Note* Carroll Leblanc RN - 12/20/2024 2:55 PM EDT Attempted to reach the patient at the contact number that they provided [phone] (home) . Unable to speak with patient so without identifying the patient the following information was left on their voice mail: Date of procedure, location and report time Prep instructions A message was left informing the patient/patient patient support representative they must have a responsible adult accompany them to their procedure; and remain in the endoscopy area until they are discharged. Failure to have a responsible adult accompany the patient to their procedure appointment prevents the useof sedation or anesthesia for their procedure; and can result in cancellation of the procedure NPO instructions were reviewed. Instructions to contact their primary care provider regarding their medications and which medications to stop in preparation for their procedure Number to call with questions or concerns [phone] Number to call to cancel their procedure [phone] Carroll Leblanc RN [facility]03-25-2025 Nurse Note* Carroll Leblanc RN - 12/20/2024 2:55 PM EDT Attempted to reach the patient at the contact number that they provided [phone] (home) . Unable to speak with patient so without identifying the patient the following information was left on their voice mail: Date of procedure, location and report time Prep instructions A message was left informing the patient/patient patient support representative they must have a responsible adult accompany them to their procedure; and remain in the endoscopy area until they are discharged. Failure to have a responsible adult accompany the patient to their procedure appointment prevents the useof sedation or anesthesia for their procedure; and can result in cancellation of the procedure NPO instructions were reviewed. Instructions to contact their primary care provider regarding their medications and which medications to stop in preparation for their procedure Number to call with questions or concerns [phone] Number to call to cancel their procedure [phone] Carroll Leblanc RN documented in [facility] Telephone encounter Note * Telephone Encounter - Marge Perkins RN - 12/19/2024 6:51 PM EDT Pt called in for x-ray results. I let Pt know they are not back in yet and provider would call her when they are. [facility]03-24-2025 History of Present illness Narrative* Roland Camargo RT(R) - 12/19/2024 3:50 PM EDT Radiology Service Progress Note PATIENT NAME: Gracie Banuelos DATE OF SERVICE: December 19, 2024 TIME: 3:53 PM PATIENT IDENTITY VERIFICATION COMPLETED USING TWO (2) IDENTIFIERS: Name and Date of confirmedby patient verbally. FALL SCREENING: Has the patient had 2 falls in the last year or 1 fall with injury or currently using an Ambulatory Assistive Device (Walker, Cane, Wheelchair, Crutches, etc.)? No PATIENT GENDER DATA: Assigned female at . status: : No status:NO. PATIENT RELEVANT IMPLANT DATA REVIEWED: Not Applicable PATIENT PRESENTS WITH AN IMPLANTABLE OR ATTACHED POLE MAKER: No RADIOLOGY DEPARTMENT: General X-ray: Exam(s) Completed: Chest X-Ray PERIPHERAL IV DATA: Not applicable SIGNED BY: RT Oneyda(Heath) December 19, 2024 3:53 PM documented in this encounterL[facility]25 NoteHNO ID: [id number] Author: ROLAND CAMARGO RT(R) Service: Radiology Author Type: Technologist Type: Progress Notes Filed: 12/19/2024 16:01 Note Text: Radiology Service Progress Note PATIENT NAME: Gracie Banuelos DATE OF SERVICE: December 19, 2024 TIME: 3:53 PM PATIENT IDENTITY VERIFICATION COMPLETED USING TWO (2) IDENTIFIERS: Name and Date of confirmed by patient verbally. FALL SCREENING: Has the patient had 2 falls in the last year or 1 fall with injury or currently using an Ambulatory Assistive Device (Walker, Cane, Wheelchair, Crutches, etc.)? No PATIENT GENDER DATA: Assigned female at . status: : No status: NO. PATIENT RELEVANT IMPLANT DATA REVIEWED: Not Applicable PATIENT PRESENTS WITH AN IMPLANTABLE OR ATTACHED POLE MAKER: No RADIOLOGY DEPARTMENT: General X-ray: Exam(s) Completed: Chest X-Ray PERIPHERAL IV DATA: Not applicable SIGNED BY: Roland Camargo RT(R) December 19, 2024 3:53 [facility]03-24-2025 History of Present illness Narrative* Tara Youngblood, COSMETIC CONSULTANT.DAYTIME CAREGIVER - 12/19/2024 2:40 PM EDT Chief Complaint Patient presents with: hospital f/up HPI Gracie Banuelos is a 59 year old female who presents here today for Above Complaints. Gracie is an established patient of Dr. Brittni MD. Concerns today.. Hospital follow-up--- [facility] admission from 12/04-12/12 d/t acute hypoxic respiratory failure r/t COPD exacerbation. Hospital course: To ED d/t SOB and wheezing. On 2-3L NC at baseline. Covid, flu, rsv negative. CTA chest was negative for PE, did show 3 mm R nodule. ECHO with EF of 70%. Given IV solumedrol and breathing treatments. During stay, hospital course was complicated by dysphagia so GI consulted and had EGD which showed blood in back of mouth and benign esophageal stenosis which was dilated. Walking pulse ox showed need for 4L NC with ambulation. Discharged home. In office today... Pt reports aspirating on eggs while in the hospital which caused the dysphagia and prompted EGD. Ptreports being very careful with eating and swallowing now. Does not want to catch pneumonia per pt.She does not think she has aspirated since. No wheezing or worsening SOB. No fever/chills. Still using 4L NC all the time. Was discharged on 5L and weaned herself down to 4L with pulse ox remaining above 93%. Feels good on the 4L. Was able to ambulate in office on 4L and pulse ox remains above 92%. Still doing breathing treatments every 4 hours. Feeling good, no wheezing. Trying to quit smoking. Smoked 4 cigarettes today total and 3 total yesterday. Used to smoke > 1 pack per day. Just ordered nicotine patches to help her quit. 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 Chronic recurrent pancreatitis -- had recent surgery for pain jersey that did not work. Has pain management appointment on Thursday. Asking for pain medication to get her through to this appointment in 2 days. Was given tramadol in the hospital which does help. Taken off of Creon d/t not helping and only making her more bloated. Has appointment with GI specialist set up. Past medical history, appointments, medications, allergies reviewed. Previous Medical History PAST MEDICAL HISTORY Diagnosis Date Acute exacerbation of chronic obstructive airways disease (HCC) Alcohol dependence in remission (HCC) 07/10/2015 Alcohol use disorder 08/27/2017 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 pancreatitis Alcoholic hepatitis 05/18/2012 Alcoholic liver disease (HCC) 11/16/2013 Anemia Anxiety with depression Arthritis Asthma Chronic hypoxemic respiratory failure (HCC) COPD (chronic obstructive pulmonary disease) ([facility]) 05/25/2012 DDD (degenerative disc disease), cervical 09/03/2018 Diaphragmatic hernia without mention of obstruction or gangrene Diarrhea Diverticulosis GERD (gastroesophageal reflux disease) Hemorrhoids HLD (hyperlipidemia) HTN (hypertension) Human papillomavirus in conditions classified elsewhere and of unspecified site Irritable bowel syndrome with both constipation and diarrhea 08/27/2017 Lumbar disc disease with radiculopathy 06/18/2012 Other and unspecified alcohol dependence, unspecified drinking behavior Ovarian cyst, right 12/27/2012 Pancreatitis chronic 05/26/2011 Pneumonia of both lungs due to infectious organism 2017 Severe protein-calorie malnutrition (HCC) 01/07/2019 Stage 3 severe COPD by GOLD classification ([facility]) 2018 Tobacco use greater than 30 years Unspecified hemorrhoids without mention of complication Urine, incontinence, stress female 11/24/2014 Previous Surgical History PAST SURGICAL HISTORY Procedure Laterality Date APPENDECTOMY at age 14 COLONOSCOPY 04/15/[address], [address] Paul Perez. COLONOSCOPY 01/23/2015 2-Tubular adenomas. Dr. Víctor Lopez. COLONOSCOPY 07/29/2017 normal COLONOSCOPY - DIAGNOSTIC 01/10/2021 10 yr interval EGD 10/03/[address] Paul Perez. EGD 07/29/2017 mild gastritis, otherwise normal EGD 01/10/2021 EGD EUS 12/05/2019 mild gastritis, chronic pancreatitis with PD stone L'SCOPE CHOLECYSTECTOMY 06/14/2021 TUBAL LIGATION 1986 Family History FAMILY HISTORY Problem Relation Age of Onset Diabetes Mother Hypertension Mother Rheumatologic disease Mother other (lung cancer) Mother Lung Cancer Mother Diabetes Sister Cervical Cancer Sister X 2 Hypertension Brother Lung Cancer Brother Patient Allergies ALLERGIES Allergen Reactions Bactrim [Sulfametho* Hives Hydrocodone Itching Penicillins Other: See Comments hives Valium [Diazepam] Other: See Comments cross reaction with alcohol addiction Current Medications Current Outpatient Medications on File Prior to Visit Medication Sig pantoprazole DR (PROTONIX) 40 mg tablet Take 1 tablet by mouth once daily. metoprolol tartrate, short acting, (LOPRESSOR) 25 mg tablet Take 1 tablet by mouth two times a day. amLODIPine (NORVASC) 5 mg tablet Take 1 tablet by mouth once daily. hydrOXYzine HCl (ATARAX) 25 mg tablet Take 1 tablet by mouth three times a day as needed for itching/rash. MUCINEX D MAXIMUM STRENGTH 120-1,200 mg tab ER 12 hr Take 1 tablet by mouth as needed. Cholecalciferol, Vitamin D3, 50 mcg (2,000 unit) cap Take 1 capsule by mouth once daily. predniSONE (DELTASONE) 20 mg tablet Take 2 tablets by mouth once daily. (Patient not taking: Reported on 11/02/2024) ondansetron orally disintegrating (ZOFRAN ODT) 4 mg disintegrating tablet Take 1 tablet by mouth every 6 hours as needed for nausea/vomiting. ziprasidone (GEODON) 40 mg capsule Take 1 capsule by mouth at bedtime as needed. xfqgnn-xmgesmhe-hwnaqwu (CREON 24) 24,000-76,000 -120,000 unit delayed release capsule Take 3 capsules by mouth once daily. (Patient not taking: Reported on 11/02/2024) hydrOXYzine pamoate (VISTARIL) 25 mg capsule Take 1 capsule by mouth daily at bedtime. lisinopril (ZESTRIL) 10 mg tablet Take 1 tablet by mouth once daily. simvastatin (ZOCOR) 20 mg tablet Take 1 tablet by mouth daily at bedtime. (Patient not taking: Reported on 11/02/2024) Benzonatate 200 mg capsule Take 200 mg by mouth three times a day as needed. (Patient not taking: Reported on 11/07/2024) Blood Pressure Monitor Home blood pressure monitor cyclobenzaprine (FLEXERIL) 10 mg tablet Take 1 tablet by mouth twice daily as needed for muscle spasm. albuterol HFA (VENTOLIN HFA) 90 mcg/actuation inhaler Inhale 2 Puffs as instructed four times dailyas needed. ferrous sulfate (SLOW FE) 140 mg (45 mg iron) TbER Take 1 tablet by mouth twice daily with meals. mirtazapine (REMERON) [address] Prescribed by Dr. Talamantes. (Patient taking differently: Take 45mg by mouth daily at bedtime. Prescribed by Dr. Talamantes.) multivitamin tablet Take 1 tablet by mouth once daily. ARIPiprazole (ABILIFY) 5 mg tablet 5 mg once daily. albuterol (PROVENTIL) 2.5 mg /3 mL (0.083 %) nebulizer solution Use 3 mL via nebulizer one time only for 1 dose. Use over 5-15minutes. OXYGEN, HOME THERAPY, Inhale as instructed as directed. Patient is on 2-3 liters COMPOUNDED PRESCRIPTION Pulse Oximetry COMPOUNDED PRESCRIPTION nebulizer supplies (tubing) No current facility-administered medications on file prior to visit. Social History Social History Tobacco Use Smoking status: Every Day Current packs/day: 0.00 Average packs/day: 0.5 packs/day for 30.0 years (15.0 ttl pk-yrs) Types: Cigarettes Start date: 10/19/1992 Last attempt to quit: 10/19/2022 Years since quittin.1 Smokeless tobacco: Never Vaping Use Vaping status: Never Used Substance Use Topics Alcohol use: Not Currently Comment: Alcoholic - November 2020 - last drink Drug use: Not Currently Types: Marijuana Comment: rarely- last time used was Oct 2019 REVIEW OF SYSTEMS: as above Reviewed relevant PMHx, PSHx, Social Hx, current medications and allergies. Review of Symptoms REVIEW OF SYSTEMS See HPI. EXAM: BP 118/62 Pulse 103 Resp 16 Wt 62.1 kg (137 lb) LMP 05/29/2010 SpO2 93% BMI 24.27 kg/m General Appearance: Well appearing, alert, in no acute distress, well-hydrated, well nourished.. Skin: Skin color, texture, turgor normal, no suspicious rashes or lesions. Head: Normocephalic, no masses, lesions, tenderness or abnormalities. Lungs: Lungs clear to auscultation. No wheezing, rhonchi, rales. Positive findings: diminished breath sounds to L lower lobe. Heart: RRR without murmur, gallop, or rubs. No ectopy. Abdomen: Normal abdominal exam, Positive findings: tenderness moderate epigastric, RUQ, and LUQ. Health Maintenance List HIV Screening Never done Alpha-1 Antitrypsin Deficiency Screening Never done Shingrix Vaccine(1 of 2) Never done Cervical Cancer Screening due on 07/05/2020 Mammogram Screening due on 08/28/2021 RSV Vaccine(1 - Risk 60-74 years 1-dose series) Never done Pneumococcal Vaccine: 50+(3 of 3 - PCV20 or PCV21) due on 08/31/2023 Colorectal Cancer Screening due on 01/11/2024 Covid-19 Vaccine(3 - 2023- season) due on 05/29/2024 Annual PCP Team Chronic Disease Visit due on 11/07/2025 BP Controlled (<130/80) due on 11/07/2025 Diabetes Screening due on 08/12/2027 Lipid Screening due on 01/10/2029 Spirometry Completed Influenza Vaccine Completed Hepatitis C Screening Completed DTaP,Tdap,Td Vaccine Discontinued ASSESSMENT/PLAN: 1. Hospital discharge follow-up - ICD9: V67.59, ICD10: Z09 (primary diagnosis) CXR d/t diminished breath sounds on PE in [facility] and recent aspiration in hospital. Concern for pneumonia although patient denies any symptoms. Short term tramadol x 3 days to get her to pain management appointment in 2 days to help manage chronic pancreatitis pain. Lab work as below to compare to hospital discharge labs. - XR CHEST 2V FRONTAL/LAT - TRAMADOL 50 MG TABLET - LIPASE - COMPLETE BLOOD COUNT AND DIFFERENTIAL - COMPREHENSIVE METABOLIC PANEL 2. Chronic recurrent pancreatitis (HCC) - ICD9: 577.1, ICD10: K86.1 See above. Continue with GI appointment. - XR CHEST 2V FRONTAL/LAT - TRAMADOL 50 MG TABLET 3. Chronic obstructive pulmonary disease, unspecified COPD type (HCC) - ICD9: 496, ICD10: J44.9 See above. Continue on 4L NC to keep pulse ox > 90%. Pt agreeable. - XR CHEST 2V FRONTAL/LAT 4. Dysphagia, unspecified type - ICD9: 787.20, ICD10: R13.10 Improved. No issues since discharge per pt. Pt is paying close attention to chewing and eating. 5. Essential hypertension, benign - ICD9: 401.1, ICD10: I10 - Controlled - Continue current medications - Recommend home blood pressure monitoring, to bring results to next visit - Encouraged sodium restriction, DASH or Mediterranean diet - Recommend regular aerobic exercise 6. Tobacco use disorder - ICD9: 305.1, ICD10: F17.200 - Cessation encouraged. Pt declined civil engineer's aide to help with cessation. Pt has already been weaning down on her own. She is ready to quit. Pt planning to use nicotine patches. - Physiologic and physical aspects of tobacco addiction as well as strategies for quitting were discussed. - Counseling was given focusing on the harmful effects of this addiction especially given the patient's medical condition(s) which will be worsened because of the chemicals in tobacco. - Counseling was given 15 minutes. - Recommended to called 1-800-QUIT NOW 7. Smoker - ICD9: 305.1, ICD10: F17.200 See above. - Cessation encouraged and pt agreeable. - Physiologic and physical aspects of tobacco addiction as well as strategies for quitting were discussed. - Counseling was given focusing on the harmful effects of this addiction especially given the patient's medical condition(s) which will be worsened because of the chemicals in tobacco. RTO in 3 months, sooner if needed. Prescription instructions reviewed with patient as applicable. Potential red flag symptoms discussed with the patient. Reviewed appropriate action plan to take if red flag symptoms occur. Patient agreeable to treatment plan. Tara Youngblood APRN.CNP [address] [place] [address] documented in this encounterLake [facility] NoteHNO ID: [id number] Author: TARA YOUNGBLOOD APRN.CNP Service: ? Author Type: Nurse Practitioner Type: Progress Notes Filed: 12/19/2024 15:33 Note Text: Chief Complaint Patient presents with: hospital f/up HPI Gracie Banuelos is a 59 year old female who presents here today for Above Complaints. Gracie is an established patient of Dr. Brittni MD. Concerns today.. Hospital follow-up--- [facility] admission from 12/04-12/12 d/t acute hypoxic respiratory failure r/t COPD exacerbation. Hospital course: To ED d/t SOB and wheezing. On 2-3L NC at baseline. Covid, flu, rsv negative. CTA chest was negative for PE, did show 3 mm R nodule. ECHO with EF of 70%. Given IV solumedrol and breathing treatments. During stay, hospital course was complicated by dysphagia so GI consulted and had EGD which showed blood in back of mouth and benign esophageal stenosis which was dilated. Walking pulse ox showed need for 4L NC with ambulation. Discharged home. In office today... Pt reports aspirating on eggs while in the hospital which caused the dysphagia and prompted EGD. Pt reports being very careful with eating and swallowing now. Does not want to catch pneumonia per pt. She does not think she has aspirated since. No wheezing or worsening SOB. No fever/chills. Still using 4L NC all the time. Was discharged on 5L and weaned herself down to 4L with pulse ox remaining above 93%. Feels good on the 4L. Was able to ambulate in office on 4L and pulse ox remains above 92%. Still doing breathing treatments every 4 hours. Feeling good, no wheezing. Trying to quit smoking. Smoked 4 cigarettes today total and 3 total yesterday. Used to smoke > 1 pack per day. Just ordered nicotine patches to help her quit. 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 Chronic recurrent pancreatitis -- had recent surgery for pain jersey that did not work. Has pain management appointment on Thursday. Asking for pain medication to get her through to this appointment in 2 days. Was given tramadol in the hospital which does help. Taken off of Creon d/t not helping and only making her more bloated. Has appointment with GI specialist set up. Past medical history, appointments, medications, allergies reviewed. Previous Medical History PAST MEDICAL HISTORY Diagnosis Date Acute exacerbation of chronic obstructive airways disease (HCC) Alcohol dependence in remission (HCC) 07/10/2015 Alcohol use disorder 08/27/2017 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 pancreatitis Alcoholic hepatitis 05/18/2012 Alcoholic liver disease (HCC) 11/16/2013 Anemia Anxiety with depression Arthritis Asthma Chronic hypoxemic respiratory failure (HCC) COPD (chronic obstructive pulmonary disease) (HCC) 05/25/2012 DDD (degenerative disc disease), cervical 09/03/2018 Diaphragmatic hernia without mention of obstruction or gangrene Diarrhea Diverticulosis GERD (gastroesophageal reflux disease) Hemorrhoids HLD (hyperlipidemia) HTN (hypertension) Human papillomavirus in conditions classified elsewhere and of unspecified site Irritable bowel syndrome with both constipation and diarrhea 08/27/2017 Lumbar disc disease with radiculopathy 06/18/2012 Other and unspecified alcohol dependence, unspecified drinking behavior Ovarian cyst, right 12/27/2012 Pancreatitis chronic 05/26/2011 Pneumonia of both lungs due to infectious organism 2017 Severe protein-calorie malnutrition (HCC) 01/07/2019 Stage 3 severe COPD by GOLD classification ([facility]) 2018 Tobacco use greater than 30 years Unspecified hemorrhoids without mention of complication Urine, incontinence, stress female 11/24/2014 Previous Surgical History PAST SURGICAL HISTORY Procedure Laterality Date APPENDECTOMY at age 14 COLONOSCOPY 04/15/[address], [address] Paul Perez. COLONOSCOPY 01/23/2015 2-Tubular adenomas. Dr. Víctor Lopez. COLONOSCOPY 07/29/2017 normal COLONOSCOPY - DIAGNOSTIC 01/10/2021 10 yr interval EGD 10/03/[address] Paul Perez. EGD 07/29/2017 mild gastritis, otherwise normal EGD 01/10/2021 EGD EUS 12/05/2019 mild gastritis, chronic pancreatitis with PD stone L'SCOPE CHOLECYSTECTOMY 06/14/2021 TUBAL LIGATION HX 1987 Family History FAMILY HISTORY Problem Relation Age of Onset Diabetes Mother Hypertension Mother Rheumatologic disease Mother other (lung cancer) Mother Lung Cancer Mother Diabetes Sister Cervical Cancer Sister X 2 Hypertension Brother Lung Cancer Brother Patient Allergies ALLERGIES Allergen Reactions Bactrim [Sulfametho* Hives Hydrocodone Itching Penicillins Other: See Comments hives Valium [Diazepam] Other: See Comments cross reaction with alcohol addiction Current Medications Current Outpatient Medications on File Prior to Visit Medication Sig pantoprazole DR (PROTONIX) 40 mg tablet Take 1 tablet by mouth once daily. metoprolol tartrate, short acting, (LOPRESSOR) 25 mg ta (more content not included)...[facility]03-17-2025 Consult note [facility] Medical Records Department [address] [place] [address] Anesthesia Postop Eval II 12/12/24 1751 MR#: [id number] Acct: [id number] Name: GRACIE BANUELOS Rep #:[id number] : 1965 59 From: Jeferson Breaxu MD PCP: Dr. Annmarie Elkins MD Status:ADM I N Y Race: C Location: [place] [address] 3-1 Anesthesia Postop Eval I Sum Postop Eval Completion status Anesthesia document: Postop Eval 1 completed: Yes Anesthesia Postop Eval I Summary Anesthesia Postop Eval I Summary: Anesthesia Postop Eval I: Assessment Summary Airway patent Yes 12/12/24 13:08 ACID [email or web address] Spontaneous unlabored Yes 12/12/24 13:08 ACID [email or web address] respirations Mental status Awake,Calm 12/12/24 13:08 ACID [email or web address] nausea No 12/12/24 13:08 ACID [email or web address] Vomiting No 12/12/24 13:08 ACID [email or web address] Anesthesia Postop Eval I: Fluid Summary Crystalloid volume administer 30 12/12/24 13:08 ACID [email or web address] (ml) Colloids volume administered ( ml) Blood Product volume administered (ml) Total IV fluid infused 30 12/12/24 13:08 ACID [email or web address] Anesthesia Postop Eval I: Summary Notes Anesthesia Complication No 12/12/24 13:08 ACID [email or web address] Anesthesia Complication Comment: Post-operative progress note Anesthesia: Postop Eval II Evaluation Mental status: Awake and Calm Pain Level: 1 nausea: No Vomiting: No Complications Anesthesia Complication: No 12/12/24 1751 dillon MENENDEZ> Date _ Jeferson Breaux MD Cosigner Signature: Date CC: ~ Signed [facility]03-17-2025 Discharge summary Author [facility] Note Date/Time December 12, 2024 3:5 4pm [facility] Medical Records Department [address] [place] [address] Instructions for Home/Discharge Instructions 12/12/24 1547 MR#: [id number] Acct: [id number] Name: GRACIE BANUELOS Rep #:[id number] : 1965 59 From: Anastacia Bonilla MD PCP: Dr. Annmarie Elkins MD Status:ADM I N Discharge Instructions Diet Discharge Diet: Low fat / Low cholesterol DC O2, CPAP, BIPAP needs Home O2 Discharge instructions: Yes Type of respiratory needs?: Oxygen Oxygen frequency: Continuous Continuous oxygen liters per minute: 4 Dressing / Incision Discharge Activity: Return to Normal Activity Weight Bearing Status: Weight bearing as tolerated Dressing / Incision Call your doctor if you observe: Fever of 101 or Higher, Shortness of breath, Dizziness, Swelling in the ankles, Chest pain and Increased palpitations (irregular heartbeat) Follow Up Care Test Results: Test results from this visit will be discussed in further detail at your follow- up appointment, if applicable. Discharge Plan Admission Admit Date/Time: 12/04/24 18:03 Primary Reason for Your Visit: COPD exacerbation, dysphagia Attending Provider: Anastacia Bonilla Primary Care Provider: Annmarie Elkins Consulting Providers: Aleta Aguayo; Yrn Kahn Instructions Patient Instructions: Discharge Instructions: COPD Discharge Orders/Prescriptions Prescriptions: New prednisone 20 mg Tablet 40 mg PO BREAKFAST 3 Days Qty: 6 0RF Continued mirtazapine 45 mg tablet 45 mg PO QHS ipratropium-albuterol 0.5 mg-3 mg(2.5 mg base)/3 mL solution for nebulization 3 ml inhalation Q4H PRN (Reason: shortness of breath or wheezing) Qty: 90 0RF Rx Instructions: until breathing returns to target peak flow/parameters amlodipine 10 mg tablet 5 mg PO DAILY Rx Instructions: Hold for SBP less than 130 mmHg lisinopril 10 mg tablet 10 mg PO QDAY lorazepam 0.5 mg tablet 0.5 mg PO BID albuterol sulfate [Ventolin HFA] 90 mcg/actuation HFA aerosol inhaler 2 puff INHALATION Q4H PRN (Reason: shortness of breath or wheezing) Qty: 18 11RF cholecalciferol (vitamin D3) 2,000 UNIT capsule 50 mcg PO DAILY pantoprazole 40 MG tablet 40 mg PO DAILY aripiprazole [Abilify] 5 mg Tablet 5 mg PO DAILY hydroxyzine pamoate 25 mg Capsule 25 mg PO QHS simvastatin 20 mg tablet 20 mg PO QHS hydrochlorothiazide 12.5 mg Capsule 12.5 mg PO BREAKFAST 30 Days Qty: 30 2RF Rx Instructions: Hold for SBP less than 130 mmHg metoprolol tartrate 25 mg Tablet 25 mg PO BID 30 Days Qty: 60 0RF Rx Instructions: Hold for heart less than 50 or systolic blood pressure less than 100 mmHg. Trelegy Ellipta 200-62.5-25 mcg blister with device 1 inh inhalation DAILY Qty: 3 3RF Referrals / Follow Up: Annmarie Elkins MD [Primary Care Provider] - Within 1 Week Disposition Disposition (needs filled in before D/C Order can be placed): Home, Self Care 12/12/24 1554<Electronically signed by Anastacia Bonilla MD>Anastacia Bonilla MD CC: Dr. Annmarie Elkins MD; Dr. Aleta Aguayo DO; Dr. Yrn Kahn DO ~ Signed [facility] Work Phone: [phone] [address]charge [address] [facility] Note Date/Time December 12, 2024 4:5 7pm [facility] Medical Records Department [address] [place] [address] Discharge Summary 12/12/24 1554 MR#: [id number] Acct: [id number] Name: GRACIE BANUELOS Rep #:[id number] : 1965 59 From: Anastacia Bonilla MD PCP: Dr. Annmarie Elkins MD Status:ADM I N Location: [place] [address] Providers Date of Admission: 12/04/24 Date of Discharge: 12/12/24 Primary Care Physician: Dr. Annmarie Elkins MD Consultations 12/05/24 09:19 Consult: Salon Leader / Pulmonary Medicine Routine Consulting Provider: Intensivists/Pulmonary Med Reason for Consult: respiratory failure EMERGENT Consult: No Notified: Yes Date Notified: 12/05/24 Time Notified: 09:19 Method of Notification: Text 12/09/24 17:42 Consult: Gastroenterology Routine Consulting Provider: [facility] Reason for Consult: dysphagia EMERGENT Consult: No Notified: Yes Date Notified: 12/09/24 Time Notified: 17:42 Method of Notification: Text Reason For Visit: ACUTE HYPOXIC RESP FAILURE; SECONDA TO COPD EXACER Diagnosis Discharge Diagnosis (1) COPD with acute exacerbation: Status: Chronic Code(s): J44.1 - Chronic obstructive pulmonary disease with (acute) exacerbation (2) Acute hypoxic respiratory failure: Status: Acute Code(s): J96.01 - Acute respiratory failure with hypoxia Plan #Acute on chronic hypoxic respiratory failure due to COPD exacerbation * On breathing treatment with bronchodilators. * still remains on 4L of oxygen by nasal canula * Titrate oxygen to maintain saturation above 90%. Breathing treatments bronchodilators. * Of note CTA of the chest on admission showed no evidence of PE. * 2D echo showed normal left ventricular systolic function and EF of 70%. Respiratory panel was also negative. * now on PO prednisone * #Chronic abdominal pain * On tramadol. Had a pancreatic block injection which does not seem to have helped. Will follow-up with pain management on outpatient basis. #Leucocytosis: wbc is 21.2. Likely due to steroids. Will monitor for now. #Oropharyngeal dysphagia * Speech therapy on board. * Modified barium swallow on 12/08/2024 showed mild to moderate oropharyngeal dysphagia * On modified diet as per speech therapy. * gastroenterology also consulted for evaluation. Per Dr Segura today, for EGD tomorrow * #Hypertension: On amlodipine and hydrochlorothiazide as well as lisinopril #Chronic anxiety: On Ativan as needed DVT prophylaxis: lovenox Medications at Discharge Home Medications cholecalciferol (vitamin D3) 50 mcg (2,000 unit) capsule 50 mcg PO DAILY SUPPLEMENT 12/29/18 pantoprazole 40 mg tablet,delayed release 40 mg PO DAILY GERD 08/12/20 aripiprazole 5 mg tablet (Abilify) 5 mg PO DAILY mood 01/22/21 hydroxyzine pamoate 25 mg capsule 25 mg PO QHS SLEEP 06/12/21 mirtazapine 45 mg tablet 45 mg PO QHS sleep 01/16/22 simvastatin 20 mg tablet 20 mg PO QHS cholesterol 11/01/22 hydrochlorothiazide 12.5 mg capsule 12.5 mg PO BREAKFAST 30 days #30 caps 01/05/24 metoprolol tartrate 25 mg tablet 25 mg PO BID 30 days #60 tabs 01/05/24 amlodipine 10 mg tablet 5 mg PO DAILY 01/26/24 ipratropium 0.5 mg-albuterol 3 mg (2.5 mg base)/3 mL nebulization soln 3 ml inhalation Q4H PRN shortness of breath or wheezing #90 mL 01/26/24 lisinopril 10 mg tablet 10 mg PO QDAY 01/26/24 albuterol sulfate 90 mcg/actuation aerosol inhaler (Ventolin HFA) 2 puff inhalation Q4H PRN shortness of breath or wheezing #18 grams 05/11/24 lorazepam 0.5 mg tablet 0.5 mg PO BID 05/11/24 fluticasone fur. 200 mcg-umeclid 62.5 mcg-vilant 25 mcg inhalat.powder (Trelegy Ellipta) 1 inh inhalation DAILY #3 ea 08/29/24 prednisone 20 mg tablet 40 mg (2 x 20 mg) PO BREAKFAST 3 days #6 tabs 12/12/24 Hospital Course Operations None Procedures 2-D Echocardiogram Summary of Care Provided Minutes Spent on Discharge: 45 Hospital Course: Patient is a 59-year-old female with past medical history as outlined was admitted to the ED on 12/04/2024 with a complaint of shortness of breath mainly with exertion. He had a history of end-stage COPD and was on 2 to 3 L of supplemental oxygen at home. She also had a history of chronic abdominal pain due to chronic pancreatitis. She admitted to associated wheezing also. On admission she was tachycardic and tachypneic. COVID, influenza and RSV were negative. CT of the chest showed no evidence of PE and showed a 3 mm right lower lobe lung nodule. She was admitted to the PCU and managed for acute on chronic hypoxic respiratory failure due to COPD exacerbation. She was placed onIV Solu-Medrol and breathing treatments with bronchodilators. Pulmonology was consulted. She did have 2D echo which showed normal ventricular solid function and EF of 70% with the respiratory panel being negative as stated. Hospital course was complicated by dysphagia and so gastroenterology was consulted. She had EGD on 12/12/2024 which showed blood in the back of the mouth and benign appearing esophageal stenosis which was dilated as well as normal stomach and nogross lesions in the first portion of the duodenum. No specimens were collected. Patient had walking pulse ox which showed that she required 4 L of oxygen with ambulation. She remained stable and was discharged home on 12/12/2024. She is to follow-up with her primary care doctor and with pulmonology within 1 to 2 weeks. Patient seen and examined prior to discharge. She had no active complaints. She felt much better. Review of systems otherwise negative. Labs and vitals reviewed. Medication reviewed and reconciled. Physical Exam Const alert, oriented x3 and no apparent distress Constitutional Narrative: on 4L of oxygen by nasal canula. General Appearance: cooperative, comfortable, well kempt and well developed Orientation / Consciousness: awake, oriented to person, oriented to place and oriented to time Exam Limitations: no limitations HEENT normocephalic, head/scalp atraumatic, hearing grossly normal bilaterally, moist oral mucous membranes and oropharynx normal Mouth: oral and palatal mucosa normal Eyes PERRL, EOMs intact bilaterally and conjunctivae normal Neck no lymphadenopathy, supple, no JVD, thyroid normal and no carotid bruits General: trachea midline Lymph Lymphatic: no lymphadenopathy noted and no lymphedema noted Resp Resp Narrative: mildly diminished breath sounds bibasally, no wheezes or crackles. On 3L of oxygen. Auscultation: Negative for rales, rhonchi or wheezes Cardio regular rate, regular rhythm, S1 normal heart sound, S2 normal heart sound, no murmurs, no rub and no gallops GI normal to inspection, nondistended, normoactive bowel sounds, soft to palpation,non-tender and non-distended Extremity normal to inspection, full ROM, normal capillary refill, no clubbing, cyanosis or edema and no calf tenderness General Extremity: no tenderness to palpation of joints or extremities Skin no rashes or lesions noted General Skin Exam: no breakdown Neuro oriented x3, CN's II-XII intact bilaterally, moves all extremities, no focal motor deficits and no sensory deficits noted Sensorium / Orientation: awake and alert Speech: speech normal Motor Exam: strength 5/5 throughout and general weakness Psych thought process normal, cooperative and affect normal Appearance: appropriate Weight / BMI Weight Weight: 133 lb 13.129 oz Body Mass Index (BMI) 23.7 ABG / Lab / Microbiology Data 12/12/24 03:43 12/12/24 03:43 Laboratory: Laboratory Results - last 24 hr 12/12/24 03:43: WBC 25.7 H, RBC 5.15, Hgb 13.7, Hct 44.4, MCV 86.2, MCH 26.6 L, MCHC 30.9 L, RDW Std Deviation 46.5 H, RDW Coeff of Min 14.6, Plt Count 345, MPV10.1, Neut % (Auto) Not Reportable, Absolute Neuts (auto) 17.2 H, Absolute Lymphs (auto) 4.36, Total Counted 100, Neutrophils % (Manual) 65, Band Neutrophils % 2, Lymphocytes % (Manual) 17 L, Monocytes % (Manual) 5, Metamyelocytes % 1, Myelocytes % 7 H, Differential Comment SCANNED, Diff Path Review January, Sodium 137, Potassium 4.1, Chloride 95 L, Carbon Dioxide 34.4 H, Anion Gap 8, BUN 25 H, Creatinine 0.77, Estim Creat Clear Calc 63.47, Est GFR (MDRD) Non-Af 87, BUN/Creatinine Ratio 32.0 H, Glucose 80, Calcium 8.9 Microbiology: Microbiology 12/10/24 21:20 Sputum, Expectorated/Coughed Gram Stain - Final 12/07/24 14:40 Mucosa - Nose SARS-CoV-2, Influenza & RSV (PCR) - Final 12/04/24 21:23 Mucosa - Nasopharyngeal Respiratory Panel (PCR) - Final 12/04/24 16:22 Mucosa - Nose SARS-CoV-2, Influenza & RSV (PCR) - Final D/C Instructions Discharge Diet: Low fat / Low cholesterol Discharge Activity: Return to Normal Activity Weight Bearing Status: Weight bearing as tolerated Call your doctor if you observe: Fever of 101 or Higher, Shortness of breath, Dizziness, Swelling in the ankles, Chest pain and Increased palpitations (irregular heartbeat) DC O2, CPAP, BIPAP Needs PSN CPAP & BiPAP: BiPAP & CPAP Settings per PSN Mode AIRVO 12/07/24 06:30 Bipap Delivery Device Nasal Pillows 12/06/24 07:23 BiPAP Expiratory Pressure 12 12/05/24 07:44 BiPAP Rate 14 12/05/24 07:44 Fraction of Inspired Oxygen ( 56 12/12/24 12:07 FIO2) Total Flow Rate 45 12/07/24 06:30 Home O2 Discharge instructions: Yes Type of respiratory needs?: Oxygen Oxygen frequency: Continuous Continuous oxygen liters per minute: 4 DC home with Oxygen: Yes Home O2 MD Review: I have reviewed the oxygen testing, and the patient qualifies for home oxygen equipment and portability. The patient is mobile in the home and the community. Meaningful Use Info Meaningful Use Meaningful Use Diagnoses (Choose all that apply): None applicable Ischemic Stroke Statin Dosing Therapy Reference: STATIN DOSE THERAPY REFERENCE: * Patients > 75 years receive moderate or high dose statin therapy. * Patients 75 years or YOUNGER should receive HIGH intensity statin dose unless contraindicated. You will be required to document reason for non-treatment if statin daily dose does not meet guidelines. HIGH DOSE STATIN THERAPY DAILY Atorvastatin > than or = to 40 mg Rosuvastatin > than or = to 20 mg Amlodipine + Atorvastatin > than or = to 2.5/40 mg Ezetimibe + Simvastatin 10/80 mg Simvastatin 80mg Discharge Plan Admission Admit Date/Time: 12/04/24 18:03 Primary Reason for Your Visit: COPD exacerbation, dysphagia Attending Provider: Anastacia Bonilla Primary Care Provider: Annmarie Elkins Consulting Providers: Aleta Aguayo; Yrn Kahn Instructions Patient Instructions: Discharge Instructions: COPD Discharge Orders/Prescriptions Prescriptions: New prednisone 20 mg Tablet 40 mg PO BREAKFAST 3 Days Qty: 6 0RF Continued mirtazapine 45 mg tablet 45 mg PO QHS ipratropium-albuterol 0.5 mg-3 mg(2.5 mg base)/3 mL solution for nebulization 3 ml inhalation Q4H PRN (Reason: shortness of breath or wheezing) Qty: 90 0RF Rx Instructions: until breathing returns to target peak flow/parameters amlodipine 10 mg tablet 5 mg PO DAILY Rx Instructions: Hold for SBP less than 130 mmHg lisinopril 10 mg tablet 10 mg PO QDAY lorazepam 0.5 mg tablet 0.5 mg PO BID albuterol sulfate [Ventolin HFA] 90 mcg/actuation HFA aerosol inhaler 2 puff INHALATION Q4H PRN (Reason: shortness of breath or wheezing) Qty: 18 11RF cholecalciferol (vitamin D3) 2,000 UNIT capsule 50 mcg PO DAILY pantoprazole 40 MG tablet 40 mg PO DAILY aripiprazole [Abilify] 5 mg Tablet 5 mg PO DAILY hydroxyzine pamoate 25 mg Capsule 25 mg PO QHS simvastatin 20 mg tablet 20 mg PO QHS hydrochlorothiazide 12.5 mg Capsule 12.5 mg PO BREAKFAST 30 Days Qty: 30 2RF Rx Instructions: Hold for SBP less than 130 mmHg metoprolol tartrate 25 mg Tablet 25 mg PO BID 30 Days Qty: 60 0RF Rx Instructions: Hold for heart less than 50 or systolic blood pressure less than 100 mmHg. Trelegy Ellipta 200-62.5-25 mcg blister with device 1 inh inhalation DAILY Qty: 3 3RF Referrals / Follow Up: Annmarie Elkins MD [Primary Care Provider] - Within 1 Week Disposition Disposition (needs filled in before D/C Order can be placed): Home, Self Care Charges/Coding Visit Charges Inpatient E&M: 08189 Disch Hosp >30min 12/12/24 1610 <Electronically signed by Anastacia Bonilla MD> Cosigner Signature (if applicable): CC: Dr. Annmarie Elkins MD; Dr. Anastacia Bonilla MD~ Signed ADDENDUM by Dr. Anastacia Bonilla MD on 12/12/24 at 1657 Addendum Patient requested for prescription for tramadol for her chronic abdominal pain due to pancreatitis. She was given a prescription for p.o. tramadol 100 mg every 6 hours as needed for total of 20 tablets with 0 refills for period of 5 days. OARRS score was checked and no red flags were seen. 12/12/24 1657<Electronically signed by Anastacia Bonilla MD> Cosigner Signature (if applicable): cc: Dr. Annmarie Elkins MD; Dr. Anastacia Bonilla MD ~* Signed [facility] Work Phone: [phone]) 317-990403-17-2025 Discharge summary [facility] Medical Records Department [address] [place] [id number] Discharge Summary 12/12/24 1554 MR#: [id number] Acct: [id number] Name: GRACIE BANUELOS Rep #:[id number] : 1965 59 From: Anastacia Bonilla MD PCP: Dr. Annmarie Elkins MD Status:ADM I N Location: [place] [address] Providers Date of Admission: 12/04/24 Date of Discharge: 12/12/24 Primary Care Physician: Dr. Annmarie Elkins MD Consultations 12/05/24 09:19 Consult: Salon Leader / Pulmonary Medicine Routine Consulting Provider: Intensivists/Pulmonary Med Reason for Consult: respiratory failure EMERGENT Consult: No MD Notified: Yes Date Notified: 12/05/24 Time Notified: 09:19 Method of Notification: Text 12/09/24 17:42 Consult: Gastroenterology Routine Consulting Provider: [facility] Reason for Consult: dysphagia EMERGENT Consult: No Notified: Yes Date Notified: 12/09/24 Time Notified: 17:42 Method of Notification: Text Reason For Visit: ACUTE HYPOXIC RESP FAILURE; SECONDA TO COPD EXACER Diagnosis Discharge Diagnosis (1) COPD with acute exacerbation: Status: Chronic Code(s): J44.1 - Chronic obstructive pulmonary disease with (acute) exacerbation (2) Acute hypoxic respiratory failure: Status: Acute Code(s): J96.01 - Acute respiratory failure with hypoxia Plan #Acute on chronic hypoxic respiratory failure due to COPD exacerbation * On breathing treatment with bronchodilators. * still remains on 4L of oxygen by nasal canula * Titrate oxygen to maintain saturation above 90%. Breathing treatments bronchodilators. * Of note CTA of the chest on admission showed no evidence of PE. * 2D echo showed normal left ventricular systolic function and EF of 70%. Respiratory panel was also negative. * now on PO prednisone * #Chronic abdominal pain * On tramadol. Had a pancreatic block injection which does not seem to have helped. Will follow-up with pain management on outpatient basis. #Leucocytosis: wbc is 21.2. Likely due to steroids. Will monitor for now. #Oropharyngeal dysphagia * Speech therapy on board. * Modified barium swallow on 12/08/2024 showed mild to moderate oropharyngeal dysphagia * On modified diet as per speech therapy. * gastroenterology also consulted for evaluation. Per Dr Segura today, for EGD tomorrow * #Hypertension: On amlodipine and hydrochlorothiazide as well as lisinopril #Chronic anxiety: On Ativan as needed DVT prophylaxis: lovenox Medications at Discharge Home Medications cholecalciferol (vitamin D3) 50 mcg (2,000 unit) capsule 50 mcg PO DAILY SUPPLEMENT 12/29/18 pantoprazole 40 mg tablet,delayed release 40 mg PO DAILY GERD 08/12/20 aripiprazole 5 mg tablet (Abilify) 5 mg PO DAILY mood 01/22/21 hydroxyzine pamoate 25 mg capsule 25 mg PO QHS SLEEP 06/12/21 mirtazapine 45 mg tablet 45 mg PO QHS sleep 01/16/22 simvastatin 20 mg tablet 20 mg PO QHS cholesterol 11/01/22 hydrochlorothiazide 12.5 mg capsule 12.5 mg PO BREAKFAST 30 days #30 caps 01/05/24 metoprolol tartrate 25 mg tablet 25 mg PO BID 30 days #60 tabs 01/05/24 amlodipine 10 mg tablet 5 mg PO DAILY 01/26/24 ipratropium 0.5 mg-albuterol 3 mg (2.5 mg base)/3 mL nebulization soln 3 ml inhalation Q4H PRN shortness of breath or wheezing #90 mL 01/26/24 lisinopril 10 mg tablet 10 mg PO QDAY 01/26/24 albuterol sulfate 90 mcg/actuation aerosol inhaler (Ventolin HFA) 2 puff inhalation Q4H PRN shortness of breath or wheezing #18 grams 05/11/24 lorazepam 0.5 mg tablet 0.5 mg PO BID 05/11/24 fluticasone fur. 200 mcg-umeclid 62.5 mcg-vilant 25 mcg inhalat.powder (Trelegy Ellipta) 1 inh inhalation DAILY #3 ea 08/29/24 prednisone 20 mg tablet 40 mg (2 x 20 mg) PO BREAKFAST 3 days #6 tabs 12/12/24 Hospital Course Operations None Procedures 2-D Echocardiogram Summary of Care Provided Minutes Spent on Discharge: 45 Hospital Course: Patient is a 59-year-old female with past medical history as outlined was admitted to the ED on 12/04/2024 with a complaint of shortness of breath mainly with exertion. He had a history of end-stage COPD and was on 2 to 3 L of supplemental oxygen at home. She also had a history of chronic abdominal pain due to chronic pancreatitis. She admitted to associated wheezing also. On admission she was tachycardic and tachypneic. COVID, influenza and RSV were negative. CT of the chest showed no evidence of PE and showed a 3 mm right lower lobe lung nodule. She was admitted to the PCU and managed for acute on chronic hypoxic respiratory failure due to COPD exacerbation. She was placed onIV Solu- Medrol and breathing treatments with bronchodilators. Pulmonology was consulted. She did have 2D echo whichshowed normal ventricular solid function and EF of 70% with the respiratory panel being negative asstated. Hospital course was complicated by dysphagia and so gastroenterology was consulted. She hadEGD on 12/12/2024 which showed blood in the back of the mouth and benign appearing esophageal stenosis which was dilated as well as normal stomach and nogross lesions in the first portion of the duodenum. No specimens were collected. Patient had walking pulse ox which showed that she required 4 L ofoxygen with ambulation. She remained stable and was discharged home on 12/12/2024. She is to follow-up with her primary care doctor and with pulmonology within 1 to 2 weeks. Patient seen and examined prior to discharge. She had no active complaints. She felt much better. Review of systems otherwise negative. Labs and vitals reviewed. Medication reviewed and reconciled. Physical Exam Const alert, oriented x3 and no apparent distress Constitutional Narrative: on 4L of oxygen by nasal canula. General Appearance: cooperative, comfortable, well kempt and well developed Orientation / Consciousness: awake, oriented to person, oriented to place and oriented to time Exam Limitations: no limitations HEENT normocephalic, head/scalp atraumatic, hearing grossly normal bilaterally, moist oral mucous membranes and oropharynx normal Mouth: oral and palatal mucosa normal Eyes PERRL, EOMs intact bilaterally and conjunctivae normal Neck no lymphadenopathy, supple, no JVD, thyroid normal and no carotid bruits General: trachea midline Lymph Lymphatic: no lymphadenopathy noted and no lymphedema noted Resp Resp Narrative: mildly diminished breath sounds bibasally, no wheezes or crackles. On 3L of oxygen. Auscultation: Negative for rales, rhonchi or wheezes Cardio regular rate, regular rhythm, S1 normal heart sound, S2 normal heart sound, no murmurs, no rub and no gallops GI normal to inspection, nondistended, normoactive bowel sounds, soft to palpation,non-tender and non-distended Extremity normal to inspection, full ROM, normal capillary refill, no clubbing, cyanosis or edema and no calftenderness General Extremity: no tenderness to palpation of joints or extremities Skin no rashes or lesions noted General Skin Exam: no breakdown Neuro oriented x3, CN's II-XII intact bilaterally, moves all extremities, no focal motor deficits and no sensory deficits noted Sensorium / Orientation: awake and alert Speech: speech normal Motor Exam: strength 5/5 throughout and general weakness Psych thought process normal, cooperative and affect normal Appearance: appropriate Weight / BMI Weight Weight: 133 lb 13.129 oz Body Mass Index (BMI) 23.7 ABG / Lab / Microbiology Data 12/12/24 03:43 12/12/24 03:43 Laboratory: Laboratory Results - last 24 hr 12/12/24 03:43: WBC 25.7 H, RBC 5.15, Hgb 13.7, Hct 44.4, MCV 86.2, MCH 26.6 L, MCHC 30.9 L, RDW Std Deviation 46.5 H, RDW Coeff of Min 14.6, Plt Count 345, MPV10.1, Neut % (Auto) Not Reportable, Absolute Neuts (auto) 17.2 H, Absolute Lymphs (auto) 4.36, Total Counted 100, Neutrophils % (Manual) 65, Band Neutrophils % 2, Lymphocytes % (Manual) 17 L, Monocytes % (Manual) 5, Metamyelocytes % 1, Myelocytes % 7 H, Differential Comment SCANNED, Diff Path Review January, Sodium 137, Potassium 4.1, Chloride 95 L, Carbon Dioxide 34.4 H, Anion Gap 8, BUN 25 H, Creatinine 0.77, Estim Creat Clear Calc 63.47, Est GFR (MDRD) Non-Af 87, BUN/Creatinine Ratio 32.0 H, Glucose 80, Calcium 8.9 Microbiology: Microbiology 12/10/24 21:20 Sputum, Expectorated/Coughed Gram Stain - Final 12/07/24 14:40 Mucosa - Nose SARS-CoV-2, Influenza & RSV (PCR) - Final 12/04/24 21:23 Mucosa - Nasopharyngeal Respiratory Panel (PCR) - Final 12/04/24 16:22 Mucosa - Nose SARS-CoV-2, Influenza & RSV (PCR) - Final D/C Instructions Discharge Diet: Low fat / Low cholesterol Discharge Activity: Return to Normal Activity Weight Bearing Status: Weight bearing as tolerated Call your doctor if you observe: Fever of 101 or Higher, Shortness of breath, Dizziness, Swelling in the ankles, Chest pain and Increased palpitations (irregular heartbeat) DC O2, CPAP, BIPAP Needs PSN CPAP & BiPAP: BiPAP & CPAP Settings per PSN Mode AIRVO 12/07/24 06:30 Bipap Delivery Device Nasal Pillows 12/06/24 07:23 BiPAP Expiratory Pressure 12 12/05/24 07:44 BiPAP Rate 14 12/05/24 07:44 Fraction of Inspired Oxygen ( 56 12/12/24 12:07 FIO2) Total Flow Rate 45 12/07/24 06:30 Home O2 Discharge instructions: Yes Type of respiratory needs?: Oxygen Oxygen frequency: ContinuousContinuous oxygen liters per minute: 4 DC home with Oxygen: Yes Home O2 MD Review: I have reviewed the oxygen testing, and the patient qualifies for home oxygen equipment and portability. The patient is mobile in the home and the community. Meaningful Use Info Meaningful Use Meaningful Use Diagnoses (Choose all that apply): None applicable Ischemic Stroke Statin Dosing Therapy Reference: STATIN DOSE THERAPY REFERENCE: * Patients > 75 years receive moderate or high dose statin therapy. * Patients 75 years or YOUNGER should receive HIGH intensity statin dose unless contraindicated. You will be required to document reason for non-treatment if statin daily dose does not meet guidelines. HIGH DOSE STATIN THERAPY DAILY Atorvastatin > than or = to 40 mg Rosuvastatin > than or = to 20 mg Amlodipine + Atorvastatin > than or = to 2.5/40 mg Ezetimibe + Simvastatin 10/80 mg Simvastatin 80mg Discharge Plan Admission Admit Date/Time: 12/04/24 18:03 Primary Reason for Your Visit: COPD exacerbation, dysphagia Attending Provider: Anastacia Bonilla Primary Care Provider: Annmarie Elkins Consulting Providers: Aleta Aguayo; Yrn Kahn Instructions Patient Instructions: Discharge Instructions: COPD Discharge Orders/Prescriptions Prescriptions: New prednisone 20 mg Tablet 40 mg PO BREAKFAST 3 Days Qty: 6 0RF Continued mirtazapine 45 mg tablet 45 mg PO QHS ipratropium-albuterol 0.5 mg-3 mg(2.5 mg base)/3 mL solution for nebulization 3 ml inhalation Q4H PRN (Reason: shortness of breath or wheezing) Qty: 90 0RF Rx Instructions: until breathing returns to target peak flow/parameters amlodipine 10 mg tablet 5 mg PO DAILY Rx Instructions: Hold for SBP less than 130 mmHg lisinopril 10 mg tablet 10 mg PO QDAY lorazepam 0.5 mg tablet 0.5 mg PO BID albuterol sulfate [Ventolin HFA] 90 mcg/actuation HFA aerosol inhaler 2 puff INHALATION Q4H PRN (Reason: shortness of breath or wheezing) Qty: 18 11RF cholecalciferol (vitamin D3) 2,000 UNIT capsule 50 mcg PO DAILY pantoprazole 40 MG tablet 40 mg PO DAILY aripiprazole [Abilify] 5 mg Tablet 5 mg PO DAILY hydroxyzine pamoate 25 mg Capsule 25 mg PO QHS simvastatin 20 mg tablet 20 mg PO QHS hydrochlorothiazide 12.5 mg Capsule 12.5 mg PO BREAKFAST 30 Days Qty: 30 2RF Rx Instructions: Hold for SBP less than 130 mmHg metoprolol tartrate 25 mg Tablet 25 mg PO BID 30 Days Qty: 60 0RF Rx Instructions: Hold for heart less than 50 or systolic blood pressure less than 100 mmHg. Trelegy Ellipta 200-62.5-25 mcg blister with device 1 inh inhalation DAILY Qty: 3 3RF Referrals / Follow Up: Annmarie Elkins MD [Primary Care Provider] - Within 1 Week Disposition Disposition (needs filled in before D/C Order can be placed): Home, Self Care Charges/Coding Visit Charges Inpatient E&M: 43109 Disch Hosp >30min 12/12/24 1610 Cosigner Signature (if applicable): CC: Dr. Annmarie Elkins MD; Dr. Anastacia Bonilla MD~ Signed ADDENDUM by Dr. Anastacia Bonilla MD on 12/12/24 at 1657 Addendum Patient requested for prescription for tramadol for her chronic abdominal pain due to pancreatitis.She was given a prescription for p.o. tramadol 100 mg every 6 hours as needed for total of 20 tablets with 0 refills for period of 5 days. OARRS score was checked and no red flags were seen. 12/12/24 1657 Cosigner Signature (if applicable): cc: Dr. Annmarie Elkins MD; Dr. Anastacia Bonilla MD ~* Signed [facility]03-17-2025 Discharge summary [facility] Medical Records Department [address] [place] [address] Instructions for Home/Discharge Instructions 12/12/24 1547 MR#: [id number] Acct: [id number] Name: GRACIE BANUELOS Rep #:[id number] : 1965 59 From: Anastacia Bonilla MD PCP: Dr. Annmarie Elkins MD Status:ADM I N Discharge Instructions Diet Discharge Diet: Low fat / Low cholesterol DC O2, CPAP, BIPAP needs Home O2 Discharge instructions: Yes Type of respiratory needs?: Oxygen Oxygen frequency: ContinuousContinuous oxygen liters per minute: 4 Dressing / Incision Discharge Activity: Return to Normal Activity Weight Bearing Status: Weight bearing as tolerated Dressing / Incision Call your doctor if you observe: Fever of 101 or Higher, Shortness of breath, Dizziness, Swelling in the ankles, Chest pain and Increased palpitations (irregular heartbeat) Follow Up Care Test Results: Test results from this visit will be discussed in further detail at your follow- up appointment, if applicable. Discharge Plan Admission Admit Date/Time: 12/04/24 18:03 Primary Reason for Your Visit: COPD exacerbation, dysphagia Attending Provider: Anastacia Bonilla Primary Care Provider: Annmarie Elkins Consulting Providers: Aleta Aguayo; Yrn Kahn Instructions Patient Instructions: Discharge Instructions: COPD Discharge Orders/Prescriptions Prescriptions: New prednisone 20 mg Tablet 40 mg PO BREAKFAST 3 Days Qty: 6 0RF Continued mirtazapine 45 mg tablet 45 mg PO QHS ipratropium-albuterol 0.5 mg-3 mg(2.5 mg base)/3 mL solution for nebulization 3 ml inhalation Q4H PRN (Reason: shortness of breath or wheezing) Qty: 90 0RF Rx Instructions: until breathing returns to target peak flow/parameters amlodipine 10 mg tablet 5 mg PO DAILY Rx Instructions: Hold for SBP less than 130 mmHg lisinopril 10 mg tablet 10 mg PO QDAY lorazepam 0.5 mg tablet 0.5 mg PO BID albuterol sulfate [Ventolin HFA] 90 mcg/actuation HFA aerosol inhaler 2 puff INHALATION Q4H PRN (Reason: shortness of breath or wheezing) Qty: 18 11RF cholecalciferol (vitamin D3) 2,000 UNIT capsule 50 mcg PO DAILY pantoprazole 40 MG tablet 40 mg PO DAILY aripiprazole [Abilify] 5 mg Tablet 5 mg PO DAILY hydroxyzine pamoate 25 mg Capsule 25 mg PO QHS simvastatin 20 mg tablet 20 mg PO QHS hydrochlorothiazide 12.5 mg Capsule 12.5 mg PO BREAKFAST 30 Days Qty: 30 2RF Rx Instructions: Hold for SBP less than 130 mmHg metoprolol tartrate 25 mg Tablet 25 mg PO BID 30 Days Qty: 60 0RF Rx Instructions: Hold for heart less than 50 or systolic blood pressure less than 100 mmHg. [place] Ellipta 200-62.5-25 mcg blister with device 1 inh inhalation DAILY Qty: 3 3RF Referrals / Follow Up: Annmarie Elkins MD [Primary Care Provider] - Within 1 Week Disposition Disposition (needs filled in before D/C Order can be placed): Home, Self Care 12/12/24 1554Anastacia Bonilla MD CC: Dr. Annmarie Elkins MD; Dr. Aleta Aguayo DO; Dr. Yrn Kahn DO ~ Signed [facility]03-17-2025 [facility]03-17-2025 Consult note Author Guevara Jimenez [facility] Note Date/Time December 12, 2024 1:0 8pm [facility] Medical Records Department [address] [facility] [place] [address] Anesthesia Postop Eval I 12/12/24 1307 MR#: [id number] Acct: [id number] Name: GRAICE BANUELOS Salvatore Rep #:[id number] : 1965 59 From: Guevara Jimenez CRNA PCP: Dr. Annmarie Elkins MD Status:ADM I N Y Race: C Location: [place] [address] Anesthesia: Postop Eval I Current Vital Signs Temperature: 97.7 F Pulse Rate: 78 Blood Pressure: 96/49 Respiratory Rate: 20 Pulse Ox: 94 Oxygen Delivery Method: Nasal Cannula Oxygen Flow Rate (L/min): 2 Assessment Airway patent: Yes Spontaneous unlabored respirations: Yes Mental status: Awake and Calm nausea: No Vomiting: No Anesthesia Complication: No Fluid Hydration Crystalloid volume administer (ml): 30 Total IV fluid infused: 30 Progress Note Anesthesia document: Postop Eval 1 completed: Yes 12/12/24 1308 <Electronically signed by Guevara borges CRNA> Date _ Guevara Jimenez CRNA Cosigner Signature: Date CC: ~ Signed [facility] Work Phone: [phone]) 413-549203-17-2025 Progress note Author Marshal Segura [facility] Note Date/Time December 12, 2024 12: 39pm [facility] Medical Records Department [address] [place] [address] Progress Note 12/12/24 1237 MR#: [id number] Acct: [id number] Name: GRACIE BANUELOS Rep #:[id number] : 1965 59 From: Marshal Segura DO PCP: Dr. Annmarie Elkins MD Status:ADM I N Location: [place] [address] Progress Note Patient has been n.p.o. for upper endoscopy today regarding her dysphagia. Physical Exam Const alert, oriented x3, no apparent distress and healthy appearing General Appearance: cooperative GI normal to inspection, nondistended, normoactive bowel sounds, soft to palpation,non-tender and non-distended Percussion: normal to percussion Rectal Exam: deferred Assessment & Plan Assessment/Plan (1) COPD with acute exacerbation: (2) Acute hypoxic respiratory failure: PLAN: Plan Oropharyngeal dysphagia from unknown cause at this time. She did have some mildesophageal dysphagia 2. She will undergo an upper endoscopy to evaluate upper GI tract. She is on modified diet as per speech therapy. She was explained alternatives, risk and benefits include not withstanding bleeding, infection, sepsis, perforation, need for charge and . She has an ASA of 3. Visit Charges Inpatient E&M: 33063 Subs Hosp L2 12/12/24 1239 <Electronically signed by Marshal Segura DO> Marshal Segura DO Cosigner Signature (if applicable): CC: ~ Signed [facility] Work Phone: [phone]) 674-888703-17-2025 Consult note Author Jeferson Breaux [facility] Note Date/Time December 12, 2024 12: 15pm [facility] Medical Records Department [address] [place] [address] Pre-Anesthesia Evaluation 12/12/24 1203 MR#: [id number] Acct: [id number] Name: BANUELOSGRACIE Rep #:[id number] : 1965 59 From: Jeferson Breaux MD PCP: Dr. Annmarie Elkins MD Status:ADM I N Y Race: C Location: [place] [address] 3-1 ASA Classification* ASA Classification ASA Classification: 3 Assessment & Plan Anesthesia* Anesthesia Assessment Anesthesia Assessment: Discussed sedation and/or anesthesia options, risks, benefits, and alternatives with patient/parents/legal guardian/POA. Questions invited. The patient/parents/legal guardian/POA seems to understand and agrees to proceedwith anesthesia plan. Reviewed the physical assessment, medical history, allergy history and patient home medications list prior to surgery/procedure/anesthetic and documented any changes. Performed airway and anesthesia risk assessments. Anesthesia Type Anesthesia Type: MAC History Source History Obtained from:: Patient and Chart Anesthesia Focused Assessment* Temperature: 97.9 F Pulse Rate: 97 Blood Pressure: 143/81 Respiratory Rate: 16 Pulse Ox: 91 Oxygen Delivery Method: Nasal Cannula Oxygen Flow Rate (L/min): 4 Fraction of Inspired Oxygen (FIO2): 56 Airway Assessment Mouth opens: >3 cm Mallampati Score: II Teeth Condition: Dentures (Patient has full upper and lower dentures. They are out.) Neck Range of motion (ROM): Full ROM Focused Labs Anesthesia Preop lab: CBC WBC 25.7 K/mm3 (4.4-11.0) H 12/12/24 03:43 5 RBC 5.15 M/mm3 (4.2-5.4) 12/12/24 03:43 12/12/24 Hgb 13.7 g/dL (12.0-15.0) 12/12/24 03:43 12/12/24 Hct 44.4 % (37-47) 12/12/24 03:43 12/12/24 Plt Count 345 K/mm3 (150-450) 12/12/24 03:43 12/12/24 CHEMISTRY Potassium 4.1 mmol/L (3.3-5.1) 12/12/24 03:43 12/12/24 Sodium 137 mmol/L (133-145) 12/12/24 03:43 12/12/24 Magnesium 2.0 mg/dL (1.5-2.2) 12/05/24 05:28 12/05/24 Phosphorus 6.2 mg/dL (2.7-4.5) H 12/05/24 05:28 12/05/24 BUN 25 mg/dL (4-19) H 12/12/24 03:43 12/12/24 Creatinine 0.77 mg/dL (0.70-1.20) 12/12/24 03:43 12/12/24 Glucose 80 mg/dL (70-99) 12/12/24 03:43 12/12/24 POC Glucose 141 mg/dL (70-110) H 04/19/19 23:12 04/19/19 COAG PT 14.5 SECONDS (11.7-14.9) 01/02/24 19:33 Pre-Assessment Diagnosis/Proposed Procedure Planned Operative Procedure(s): Esophagogastroduodenoscopy with possible dilation. Anesthesia History Anesthesia History - guest experience manager: Anesthesia History - guest experience manager Hx Hospitalization Yes 08/12/20 11:23 Any Problems With Anesthesia No 06/12/21 02:55 Cholinesterase deficiency No 06/12/21 02:55 You/Your Family Experience No 06/12/21 02:55 fever (hyperthermia) with Relationship Recent Exposure to Contagious No 06/12/21 02:55 Disease Does patient have nerve No 06/12/21 02:55 stimulator Patient instructed to have device shut off --Does patient have Pacemaker or ICD? When Was Last Pacemaker Check QUESTION #4 FULL TEXT: You/Your Family Experience fever (hyperthermia) with Anesthesia Last Oral Intake Last Oral intake: Last Oral Intake NPO since Meds taken in AM with sips of water? Meds patient instructed to take am of surgery Any additional information?: Yes NPO since: 00:00 Meds taken in AM with sips of water?: Yes PONV PONV - guest experience manager: PONV - guest experience manager Female HX of Motion Sickness HX of N/V After Surgery Non-Smoker Duration of Surgery greater than 60 minutes Number of Risk Factors PONV Score Height & Weight Height & Weight: Anesthesia: Height & Weight Height 5 ft 3 in 12/11/24 13:34 Weight: 60.7 kg 12/12/24 05:02 Body Mass Index (BMI) 23.7 12/12/24 05:02 Respiratory Assessment Respiratory Assessment - guest experience manager: Respiratory Tract Infection Hx - guest experience manager Hx Respiratory Tract Infection No 06/12/21 02:55 STOP Sleep Apnea STOP Sleep Apnea - guest experience manager: STOP Sleep Apnea - guest experience manager Hx Hypertension Yes 12/04/24 20:21 Hx Sleep Apnea Yes 12/04/24 20:21 CPAP No 12/04/24 20:21 BIPAP No 12/04/24 20:21 Do you snore loudly (louder than talking or can be heard Do you often feel tired/ fatigued/ sleepy during daytime? Has anyone observed you stop breathing during sleep? STOP Results Positive 12/04/24 20:21 QUESTION #5 FULL TEXT : Do you snore loudly (louder than talking or can be heard through closed doors)? Tobacco Use History Tobacco Use History - guest experience manager: Tobacco Use History - guest experience manager Tobacco Use Cigarettes 01/22/21 20:43 Smoking Status Heavy Smoker (>10/day) 12/06/24 05:11 Hx Tobacco Use Yes 12/04/24 20:21 Years Smoking Packs Smoked per Day Smoking Cessation Date was within the last 15 years Hx Smoking Cessation Date Hx Smoking Cessation No 12/04/24 20:21 Counseling Hematologic Medial History Hematologic Hx - guest experience manager: Hematologic Medical Hx - teleprinter installer Hx of Blood Transfusion No 12/04/24 20:21 Hx of Transfusion in last 3 No 12/04/24 20:21 Months Date of Last Transfusion (if within last 3 months) Ever experience any problems No 12/04/24 20:21 with transfusion(s)? Specify any problems Hx of Preganancy in last 3 No 12/04/24 20:21 Months Nurse Filling Out Transfusion MGROVE 12/04/24 20:21 & Questions: Date: 12/04/24 12/04/24 20:21 Time: :12/04/24 20:21 Patient unable to answer at this time (ie. confused, unrespo /Reproduction History /Reproductive History - guest experience manager: /Reproductive Hx- guest experience manager Hx Now Gestational Age (in weeks): EDC: Hx Hx Para Hx Section SAB No 06/12/21 02:55 Active Medications Active Medications: Current Medications Generic Name Dose Route Start Last Admin Trade Name Freq PRN Reason Stop Dose Admin Acetaminophen 650 mg 12/04/24 20:21 12/05/24 10:04 Acetaminophen 325 Mg Tablet PO 650 mg Q6H PRN PRN Administration Pain 1-10 Or Fever>100.7 Albuterol Sulfate 2.5 mg 12/04/24 20:21 Albuterol 2.5 Mg/3 Ml Vial.Neb. INHALATION Q2H PRN PRN SHORTNESS OF BREATH Albuterol/Ipratropium 3 ml 12/04/24 20:21 12/12/24 07:36 Ipratropium/Albuterol Sulfate 3 Ml Ampul.Neb INHALATION 3 ml Q4H.RT DACIA Administration Amlodipine Besylate 5 mg 12/05/24 10:00 12/12/24 07:43 Amlodipine 5 Mg Tablet PO 5 mg DAILY DACIA Administration Protocol Aripiprazole 5 mg 12/05/24 10:00 12/12/24 07:42 Aripiprazole 5 Mg Tablet PO 5 mg DAILY DACIA Administration Protocol Atorvastatin Calcium 10 mg 12/04/24 22:00 12/11/24 23:09 Atorvastatin Calcium 10 Mg Tablet PO 10 mg QHS DACIA Administration Cholecalciferol 50 mcg 12/05/24 10:00 12/12/24 07:41 Cholecalciferol (Vit D3) 25 Mcg Tablet (1,000 Units) PO 50 mcg DAILY DACIA Administration Enoxaparin Sodium 40 mg 12/05/24 10:00 12/12/24 07:43 Enoxaparin 40 Mg/0.4 Ml Syringe SC 40 mg DAILY DACIA Administration Guaifenesin 1,200 mg 12/04/24 22:00 12/12/24 07:41 Guaifenesin 1,200 Mg Tablet PO 1,200 mg BID DACIA Administration Hydrochlorothiazide 12.5 mg 12/05/24 08:00 12/12/24 07:41 Hydrochlorothiazide 12.5mg PO 12.5 mg BREAKFAST DACIA Administration Protocol Hydroxyzine Pamoate 25 mg 12/04/24 22:00 12/11/24 23:14 Hydroxyzine Grace 25 Mg Capsule PO 25 mg QHS DACIA Administration Sodium Chloride 100 mls @ 15 mls/hr 12/04/24 20:22 IV .Q6H40M PRN Saline Flush Sodium Chloride 100 mls @ 15 mls/hr 12/04/24 20:22 IV .Q6H40M PRN Additional IVPB Infusion Lisinopril 10 mg 12/05/24 10:00 12/09/24 14:21 Lisinopril 10 Mg Tablet PO 10 mg DAILY DACIA Administration Protocol Lorazepam 0.5 mg 12/04/24 22:00 12/12/24 07:43 Lorazepam 0.5 Mg Tablet PO 0.5 mg BID DACIA Administration Melatonin 3 mg 12/04/24 20:21 Melatonin 3 Mg Tablet PO QHS PRN PRN INSOMNIA Metoprolol Tartrate 25 mg 12/04/24 22:00 12/12/24 07:41 Metoprolol Tartrate 25 Mg Tablet PO 25 mg BID DACIA Administration Protocol Mirtazapine 45 mg 12/04/24 22:00 12/11/24 23:14 Mirtazapine 15 Mg Tablet PO 45 mg QHS DACIA Administration Nicotine 14 mg 12/05/24 10:00 12/12/24 07:42 Nicotine 14 Mg Patch TD 14 mg DAILY DACIA Administration Nystatin 500,000 unit 12/04/24 22:00 12/12/24 07:44 Nystatin 500,000 Unit/5 Ml Udc PO 500,000 unit 4X/DAY DACIA Administration Ondansetron HCl 4 mg 12/04/24 20:21 Ondansetron 4 Mg/2 Ml Vial IV Q8H PRN PRN NAUSEA/VOMITING Pantoprazole Sodium 40 mg 12/05/24 10:00 12/12/24 07:40 Pantoprazole Sodium 40 Mg Tablet PO 40 mg DAILY DACIA Administration Prednisone 40 mg 12/11/24 08:00 12/12/24 07:55 Prednisone 20 Mg Tablet PO 12/16/24 08:01 40 mg BREAKFAST DACIA Administration Senna/Docusate Sodium 2 tablet 12/04/24 20:21 Senna/Docusate Sodium 1 Tablet PO BID PRN PRN Constipation Sodium Chloride 10 - 40 ml 12/04/24 20:22 12/10/24 21:37 0.9% Saline Lock 10 Ml Syringe IV 10 ml UD PRN Administration SALINE FLUSH Throat Lozenges 1 lozenge 12/04/24 20:21 Benzocaine/Menthol 1 Lozenge MUCOUS MEM Q2H PRN PRN SORE THROAT Tramadol HCl 100 mg 12/05/24 12:46 12/12/24 07:40 Tramadol 50 Mg Tablet PO 100 mg Q6H PRN PRN Administration Pain Score 1-10 PFSH Medical History Pancreatic stones HLD (hyperlipidemia) History of alcohol abuse Pneumonia Acute on chronic hypoxic respiratory failure Stage 3 severe COPD by GOLD classification Asthma COPD (chronic obstructive pulmonary disease) Arthritis History of back problems Anxiety and depression Chronic pancreatitis HPV (human papilloma virus) infection Anemia Tobacco abuse GERD (gastroesophageal reflux disease) Benign hypertension Home Medications ?Medication ?Instructions ?Recorded ?Last Taken ?Type cholecalciferol (vitamin D3) 50 50 mcg PO DAILY SUPPLE MENT 12/29/18 10/31/22 History mcg (2,000 unit) capsule pantoprazole 40 mg tablet,delayed 40 mg PO DAILY GERD 08/12/20 10/31/22 History release aripiprazole 5 mg tablet (Abilify) 5 mg PO DAILY mood 01/22/21 10/31/22 History hydroxyzine pamoate 25 mg capsule 25 mg PO QHS SLEEP 0 06/12/21 01/01/24 History mirtazapine 45 mg tablet 45 mg PO QHS sleep 01/16/22 01/01/24 History simvastatin 20 mg tablet 20 mg PO QHS cholesterol 01/1801/01/24 History hydrochlorothiazide 12.5 mg capsule 12.[address] 30 days #30 01/05/24 Unknown Rx caps metoprolol tartrate 25 mg tablet 25 mg PO BID 30 days #60 tabs 01/05/24 Unknown Rx amlodipine 10 mg tablet 5 mg PO DAILY 01/26/24 Unkno wn History ipratropium 0.5 mg-albuterol 3 mg 3 ml inhalation Q4H PRN shortness 01/26/24 Unknown Rx (2.5 mg base)/3 mL nebulization of breath or wheezing #90 mL soln lisinopril 10 mg tablet 10 mg PO QDAY 01/26/24 Unkno wn History albuterol sulfate 90 mcg/actuation 2 puff inhalation Q 4H PRN 05/11/24 Unknown Rx aerosol inhaler (Ventolin HFA) shortness of breath or wheezing #18 grams lorazepam 0.5 mg tablet 0.5 mg PO BID 05/11/24 Unkno wn History fluticasone fur. 200 mcg-umeclid 1 inh inhalation NILAY Y #3 ea 08/29/24 Unknown Rx 62.5 mcg-vilant 25 mcg inhalat.powder (Trelegy Ellipta) Allergy/AdvReac Type Severity Reaction Status Date / Time clindamycin Allergy Intermediate Hives Verified 12/04/24 15:55 Penicillins Allergy Hives Verified 12/04/24 15:55 sulfamethoxazole (From Allergy Other Verified 12/04/24 15:55 Bactrim) trimethoprim (From Bactrim) Allergy Other Verified 12/04/24 15:55 hydrocodone (From Bode) AdvReac Itching Verified 12/04/24 15:55 Family History Mother Diabetes Hypertension Heart disease High cholesterol Arthritis Thyroid disorder Brother Hypertension Sister Cancer cervical Thyroid disorder Father Kidney disease Daughter Thyroid disorder Family History no significant family his Surgical History History of tubal ligation History of colonoscopy History of appendectomy Surgical History no surgical history Social History household members: family Smoking Status: Heavy Smoker (>10/day) Tobacco: How many years used: 30 second hand exposure: Yes alcohol intake: former details: Sober since 2020. substance use type: does not use caffeine: Yes Review of Systems (Anesthesia) ROS Narrative System reviewed and no additional complaints, except as documented. 12/12/24 1215 <Electronically signed by Jeferson carranza MD> Date _ Jeferson Breaux MD Cosigner Signature: Date CC: ~ Signed [facility] Work Phone: [phone]) 302-222203-17-2025 Progress note Author Gonzalo Sebastian [facility] Note Date/Time December 12, 2024 11: 29am [facility] Medical Records Department [facility] [place] [address] Progress Note - Salon Leader 12/12/24 1000 MR#: [id number] Acct: [id number] Name: GRACIE BANUELOS Rep #:[id number] : 1965 59 From: Gonzalo Sebastian DO PCP: Dr. Annmarie Elkins MD Status:ADM I N Location: [place] [address] Assessment & Plan Assessment/Plan (1) COPD with acute exacerbation: (2) Acute hypoxic respiratory failure: PLAN: Plan RECOMMENDATIONS: 1. Continue to wean supplemental oxygen as tolerated. 2. Continue bronchodilators and steroids. The patient completed treatment course of azithromycin. 3. Dietary advancement per speech therapy. 4. Continue appropriate DVT prophylaxis. 5. Continue nicotine replacement therapy. 6. Aggressive medical management of underlying anxiety. 7. Perform walking oximetry study prior to consideration for discharge home. 8. Outpatient pulmonary follow-up after discharge is warranted. 9. Will sign off at this time. Please call with any additional questions. IMPRESSIONS: 1. Acute respiratory failure with hypoxemia and hypercapnia Unclear precipitating etiology. However, aspiration and underlying anxiety are likely contributing factors. CTA chest showed no evidence for pulmonary embolism. There was no evidence of a focal infiltrate to suggest pneumonia. Echocardiogram revealed intact systolic function. Right ventricular systolic pressure was unable to be estimated. Respiratory viral panel was negative. The patient does have evidence of end-stage lung disease based upon pulmonary function studies completed last month. The patient completed a modified barium swallow with mild to moderate oropharyngeal dysphagia noted. Speech therapy is following with dietary advancement per recommendations. In addition, gastroenterology evaluation with EGD was recommended. The patient's oxygenationstatus has improved. Continue to wean supplemental oxygen to maintain saturations at or above 90%. Recommend performing a 6-minute walk test prior to consideration for discharge home. The patient should follow-up in the pulmonarymedicine office within 2 weeks of discharge. 2. Chronic tobacco dependency/bipolar disorder/depression/anxiety/chronic pancreatitis Complicates care, management, recovery and prognosis. Continue home medicationsas indicated. This note was generated with [employer] software. It may contain incorrectwords, spelling, and punctuation that were not noted in checking the note beforesigning. Subjective Subjective The patient was seen and examined at the bedside this morning. Events from the last 24 hours have been reviewed. The patient is currently afebrile, hemodynamically stable and maintaining appropriate oxygen saturations on 3 L/minvia nasal cannula. White blood cell count is elevated at 25,000. Creatinine iswithin normal limits. The patient is anxious to be discharged home. She is awaiting an upper endoscopy today by gastroenterology. Objective Data Objective Data The patient's most recent lab work, culture data and imaging studies have all been personally reviewed. COVID, influenza and RSV PCR's were negative. Vital Signs: Vital Signs Temp Pulse Resp BP Pulse Ox O2 Del Method O2 Flow Rate 97.9 F 97 16 143/81 H 93 Nasal Cannula 3 12/12/24 08:50 12/12/24 08:50 12/12/24 08:50 12/12/24 08:50 12/12/24 09:24 12/12/24 09:24 12/12/24 09:24 FiO2 56 12/07/24 08:56 Oxygen Flow Rate (L/min) 3 Oxygen Delivery Method Nasal Cannula Weight: 133 lb 13.129 oz Body Mass Index (BMI) 23.7 Intake & Output: Intake and Output for Last 24 Hours 12/10/24 12/11/24 12/12/24 23:59 23:59 23:59 Intake Total 480 / 480 760 / 1210 450 / 450 Output Total 150 / 150 0 / 0 Balance 330 / 330 760 / 1210 450 / 450 Lab / Micro Data Attestation: I reviewed the patient's lab results. 12/12/24 03:43 12/12/24 03:43 Labs: Laboratory Results - last 24 hr 12/12/24 03:43: WBC 25.7 H, RBC 5.15, Hgb 13.7, Hct 44.4, MCV 86.2, MCH 26.6 L, MCHC 30.9 L, RDW Std Deviation 46.5 H, RDW Coeff of Min 14.6, Plt Count 345, MPV10.1, Neut % (Auto) Not Reportable, Absolute Neuts (auto) 17.2 H, Absolute Lymphs (auto) 4.36, Total Counted 100, Neutrophils % (Manual) 65, Band Neutrophils % 2, Lymphocytes % (Manual) 17 L, Monocytes % (Manual) 5, Metamyelocytes % 1, Myelocytes % 7 H, Differential Comment SCANNED, Diff Path Review January, Sodium 137, Potassium 4.1, Chloride 95 L, Carbon Dioxide 34.4 H, Anion Gap 8, BUN 25 H, Creatinine 0.77, Estim Creat Clear Calc 63.47, Est GFR (MDRD) Non-Af 87, BUN/Creatinine Ratio 32.0 H, Glucose 80, Calcium 8.9 Micro: Microbiology 12/10/24 21:20 Sputum, Expectorated/Coughed Gram Stain - Final 12/07/24 14:40 Mucosa - Nose SARS-CoV-2, Influenza & RSV (PCR) - Final 12/04/24 21:23 Mucosa - Nasopharyngeal Respiratory Panel (PCR) - Final 12/04/24 16:22 Mucosa - Nose SARS-CoV-2, Influenza & RSV (PCR) - Final Radiography Diagnostic Testing: Radiology Impression Echocardiogram 12/05/24 13:19 Interpretation Summary The estimated ejection fraction is 70 %. Unable to assess diastolic dysfunction. Trivial mitral valve insufficiency. Ordering Physician: Gonzalo Sebastian Referring Physician: ANNMARIE ELKINS Performed By: Grazyna Lazaro RCS Rhythm Strip Rhythm Strip: Sinus Tach Rate: 121 Ectopy: None Physical Exam Const alert, oriented x3 and no apparent distress General Appearance: cooperative HEENT normocephalic and head/scalp atraumatic Eyes PERRL, EOMs intact bilaterally and conjunctivae normal Neck supple General: trachea midline Chest inspection of chest normal Resp normal respiratory effort Auscultation: diminished lung sounds; Negative for rales, rhonchi or wheezes Cardio regular rate and regular rhythm GI normal to inspection, nondistended, normoactive bowel sounds Extremity no clubbing, cyanosis or edema Skin no rashes or lesions noted Neuro CN's II-XII intact bilaterally, moves all extremities and no focal motor deficits Psych Mood & Affect: anxious Charges/Coding Visit Charges Inpatient E&M: 92468 Subs Hosp L2 12/12/24 1129 <Electronically signed by Gonzalo Sebastian DO> Cosigner Signature (if applicable): CC: ~ Signed [facility] Work Phone: [phone]) 884-286703-17-2025 Consult note [facility] Medical Records Department [address] [place] [address] Anesthesia Postop Eval I 12/12/24 1307 MR#: [id number] Acct: [id number] Name: GRACIE BANUELOS Rep #:[id number] : 1965 59 From: Guevara Jimenez CRNA PCP: Dr. Annmarie Elkins MD Status:ADM I N Y Race: C Location: [place] [address] Anesthesia: Postop Eval I Current Vital Signs Temperature: 97.7 F Pulse Rate: 78 Blood Pressure: 96/49 Respiratory Rate: 20 Pulse Ox: 94 Oxygen Delivery Method: Nasal Cannula Oxygen Flow Rate (L/min): 2 Assessment Airway patent: Yes Spontaneous unlabored respirations: Yes Mental status: Awake and Calm nausea: No Vomiting: No Anesthesia Complication: No Fluid Hydration Crystalloid volume administer (ml): 30 Total IV fluid infused: 30 Progress Note Anesthesia document: Postop Eval 1 completed: Yes 12/12/24 1308 y ACID DUMPER> Date _ Guevara Jimenez ACID DUMPER Cosigner Signature: Date CC: ~ Signed [facility]03-17-2025 Procedure note [facility] Medical Records Department [address] [place] [address] EGD Report MR#: [id number] Acct: [id number] Name: GRACIE BANUELOS Rep #:[id number] : 1965 59 From: Marshal Segura DO PCP: Dr. Annmarie Elkins MD Status:ADM I N Patient Name: Gracie Banuelos Procedure Date: 12/12/2024 12:40 PM Date of : 1965 Age: 59 Procedure: Upper GI endoscopy Indications: Dysphagia Providers: Marshal Segura DO Medicines: Monitored Anesthesia Care Patient Profile: This is a 59 year old female. Refer to note in patient chart for documentation of history and physical. Patient has symptoms of dysphagia with both liquids and solids. Complications: No immediate complications. Procedure: Pre-Anesthesia Assessment: - Prior to the procedure, a History and Physical was performed, and patient medications and allergies were reviewed. The patient is competent. The risks and benefits of the procedure and the sedation options and risks were discussed with the patient. All questions were answered and informed consent was obtained. Patient identification and proposed procedure were verified by the physician in the pre-procedure area. Mental Status Examination: alert and oriented. Airway Examination: normal oropharyngeal airway and neck mobility. Respiratory Examination: clear to auscultation. CV Examination: normal. Prophylactic Antibiotics: The patient does not require prophylactic antibiotics. Prior Anticoagulants: The patient has taken no anticoagulant or antiplatelet agents. ASA Grade Assessment: II - A patient with mild systemic disease. After reviewing the risks and benefits, the patient was deemed in satisfactory condition to undergo the procedure. The anesthesia plan was to use monitored anesthesia care (MAC). Immediately prior to administration of medications, the patient was re-assessed for adequacy to receive sedatives. The heart rate, respiratory rate, oxygen saturations, blood pressure, adequacy of pulmonary ventilation, and response to care were monitored throughout the procedure. The physical status of the patient was re-assessed after the procedure. After obtaining informed consent, the endoscope was passed under direct vision. Throughout the procedure, the patient's blood pressure, pulse, and oxygen saturations were monitored continuously. The Endoscope was introduced through the mouth, and advanced to the second part of duodenum. The upper GI endoscopy was accomplished without difficulty. The patient tolerated the procedure well. Scope In: 12:52:58 PM Scope Out: 12:57:22 PM Total Procedure Duration Time 0 hours 4 minutes 24 seconds Findings: {blood in the back of the mouth}. One benign-appearing, intrinsic moderate stenosis was found 21 to 24 cm from the incisors. This stenosis measured 3 mm (inner diameter) x 4 cm (in length). The stenosis was traversed. A guidewire was placed and the scope was withdrawn. Dilation was performed with a Savary dilator with no resistance at 51 Fr. The dilation site was examined and showed moderate mucosal disruption. Estimated blood loss was minimal. The entire examined stomach was normal. No gross lesions were noted in the first portion of the duodenum. Impression: - {blood in the back of the mouth}. - Benign-appearing esophageal stenosis. Dilated. - Normal stomach. - No gross lesions in the first portion of the duodenum. - No specimens collected. Recommendation: - Discharge patient to home. - Resume previous diet. - Continue present medications. Procedure Code(s): --- Professional --- 04351, Esophagogastroduodenoscopy, flexible, transoral; with insertion of guide wire followed by passage of dilator(s) through esophagus over guide wire CPT copyright 2021 [employer] [place] [employer]. All rights reserved. The codes documented in this report are preliminary and upon machine setter sheet metal review may be revised to meet current compliance requirements. Marshal Segura DO 12/12/2024 1:07:14 PM This report has been signed electronically. Number of Addenda: 0 Note Initiated On: 12/12/2024 12:40 PM 12/12/24 1307 Date _ Marshal Segura DO Cosigner Signature: Date (if indicated) CC: Dr. Annmarie Elkins MD; Marshal Segura DO ~ Date Dictated: 12/12/24 1240 Date Transcribed: Advanced Practice Nurse Psychotherapist: RF Signed [facility]03-17-2025 Procedure note [facility] Medical Records Department [address] [place] [address] Operative Report - CC Letter MR#: [id number] Acct: [id number] Name: GRACIE BANUELOS Rep #:[id number] : 1965 59 From: Marshal Segura DO PCP: Dr. Annmarie Elkins MD Status:ADM I N 12/12/2024 Annmarie Elkins [address] [place] [address] Re : Upper GI endoscopy procedure for Gracie Banuelos Dear Dr. Elkins This procedure was performed on Thursday, December 12, 2024. My impressions and recommendations are as follows: Impressions : - blood in the back of the mouth. - Benign-appearing esophageal stenosis. Dilated. - Normal stomach. - No gross lesions in the first portion of the duodenum. - No specimens collected. Recommendations : - Discharge patient to home. - Resume previous diet. - Continue present medications. My findings are described in the full procedure note, which is enclosed. If I can be of further assistance, please feel free to contact me at . Sincerely, Marshal Segura DO 12/12/2024 1:07:14 PM This report has been signed electronically. 12/12/24 1307 Date _ Marshal Segura DO Cosigner Signature: Date (if indicated) CC: Dr. Annmarie Elkins MD; Dr. Aleta Aguayo DO; Dr. Yrn Kahn DO; Dr. Anastacia Bonilla MD ~ Date Dictated: 12/12/24 1240 Date Transcribed: Advanced Practice Nurse Psychotherapist: RF Signed [facility]03-17-2025 Progress note [facility] Medical Records Department [address] [place] [address] Progress Note 12/12/24 1237 MR#: [id number] Acct: [id number] Name: GRACIE BANUELOS Rep #:[id number] : 1965 59 From: Marshal Segura DO PCP: Dr. Annmarie Elkins MD Status:ADM I N Location: [place] [address] Progress Note Patient has been n.p.o. for upper endoscopy today regarding her dysphagia. Physical Exam Const alert, oriented x3, no apparent distress and healthy appearing General Appearance: cooperative GI normal to inspection, nondistended, normoactive bowel sounds, soft to palpation,non-tender and non-distended Percussion: normal to percussion Rectal Exam: deferred Assessment & Plan Assessment/Plan (1) COPD with acute exacerbation: (2) Acute hypoxic respiratory failure: PLAN: Plan Oropharyngeal dysphagia from unknown cause at this time. She did have some mildesophageal dysphagia2. She will undergo an upper endoscopy to evaluate upper GI tract. She is on modified diet as per speech therapy. She was explained alternatives, risk and benefits include not withstanding bleeding, infection, sepsis, perforation, need for charge and . She has an ASA of 3. Visit Charges Inpatient E&M: 17098 Subs Hosp L2 12/12/24 1239 Marshal Friend DO Cosigner Signature (if applicable): CC: ~ Signed [facility]03-17-2025 Consult note [facility] Medical Records Department [address] [facility] [place] [address] Pre-Anesthesia Evaluation 12/12/24 1203 MR#: [id number] Acct: [id number] Name: GRACIE BANUELOS Rep #:[id number] : 1965 59 From: Jeferson Breaux MD PCP: Dr. Annmarie Elkins MD Status:ADM I N Y Race: C Location: [place] [address] 3-1 ASA Classification* ASA Classification ASA Classification: 3 Assessment & Plan Anesthesia* Anesthesia Assessment Anesthesia Assessment: Discussed sedation and/or anesthesia options, risks, benefits, and alternatives with patient/parents/legal guardian/POA. Questions invited. The patient/parents/legal guardian/POA seems to understand and agrees to proceedwith anesthesia plan. Reviewed the physical assessment, medical history, allergy history and patient home medications list prior to surgery/procedure/anesthetic and documented any changes. Performed airway and anesthesia risk assessments. Anesthesia Type Anesthesia Type: MAC History Source History Obtained from:: Patient and Chart Anesthesia Focused Assessment* Temperature: 97.9 F Pulse Rate: 97 Blood Pressure: 143/81 Respiratory Rate: 16 Pulse Ox: 91 Oxygen Delivery Method: Nasal Cannula Oxygen Flow Rate (L/min): 4 Fraction of Inspired Oxygen (FIO2): 56 Airway Assessment Mouth opens: >3 cm Mallampati Score: II Teeth Condition: Dentures (Patient has full upper and lower dentures. They are out.) Neck Range of motion (ROM): Full ROM Focused Labs Anesthesia Preop lab: CBC WBC 25.7 K/mm3 (4.4-11.0) H 12/12/24 03:43 5 RBC 5.15 M/mm3 (4.2-5.4) 12/12/24 03:43 12/12/24 Hgb 13.7 g/dL (12.0-15.0) 12/12/24 03:43 12/12/24 Hct 44.4 % (37-47) 12/12/24 03:43 12/12/24 Plt Count 345 K/mm3 (150-450) 12/12/24 03:43 12/12/24 CHEMISTRY Potassium 4.1 mmol/L (3.3-5.1) 12/12/24 03:43 12/12/24 Sodium 137 mmol/L (133-145) 12/12/24 03:43 12/12/24 Magnesium 2.0 mg/dL (1.5-2.2) 12/05/24 05:28 12/05/24 Phosphorus 6.2 mg/dL (2.7-4.5) H 12/05/24 05:28 12/05/24 BUN 25 mg/dL (4-19) H 12/12/24 03:43 12/12/24 Creatinine 0.77 mg/dL (0.70-1.20) 12/12/24 03:43 12/12/24 Glucose 80 mg/dL (70-99) 12/12/24 03:43 12/12/24 POC Glucose 141 mg/dL (70-110) H 04/19/19 23:12 04/19/19 COAG PT 14.5 SECONDS (11.7-14.9) 01/02/24 19:33 Pre-Assessment Diagnosis/Proposed Procedure Planned Operative Procedure(s): Esophagogastroduodenoscopy with possible dilation. Anesthesia History Anesthesia History - guest experience manager: Anesthesia History - guest experience manager Hx Hospitalization Yes 08/12/20 11:23 Any Problems With Anesthesia No 06/12/21 02:55 Cholinesterase deficiency No 06/12/21 02:55 You/Your Family Experience No 09/15/21 02:55 fever (hyperthermia) with Relationship Recent Exposure to Contagious No 06/12/21 02:55 Disease Does patient have nerve No 06/12/21 02:55 stimulator Patient instructed to have device shut off --Does patient have Pacemaker or ICD? When Was Last Pacemaker Check QUESTION #4 FULL TEXT: You/Your Family Experience fever (hyperthermia) with Anesthesia Last Oral Intake Last Oral intake: Last Oral Intake NPO since Meds taken in AM with sips of water? Meds patient instructed to take am of surgery Any additional information?: Yes NPO since: 00:00 Meds taken in AM with sips of water?: Yes PONV PONV - guest experience manager: PONV - guest experience manager Female HX of Motion Sickness HX of N/V After Surgery Non-Smoker Duration of Surgery greater than 60 minutes Number of Risk Factors PONV Score Height & Weight Height & Weight: Anesthesia: Height & Weight Height 5 ft 3 in 12/11/24 13:34 Weight: 60.7 kg 12/12/24 05:02 Body Mass Index (BMI) 23.7 12/12/24 05:02 Respiratory Assessment Respiratory Assessment - guest experience manager: Respiratory Tract Infection Hx - guest experience manager Hx Respiratory Tract Infection No 06/12/21 02:55 STOP Sleep Apnea STOP Sleep Apnea - guest experience manager: STOP Sleep Apnea - guest experience manager Hx Hypertension Yes 12/04/24 20:21 Hx Sleep Apnea Yes 12/04/24 20:21 CPAP No 12/04/24 20:21 BIPAP No 12/04/24 20:21 Do you snore loudly (louder than talking or can be heard Do you often feel tired/ fatigued/ sleepy during daytime? Has anyone observed you stop breathing during sleep? STOP Results Positive 12/04/24 20:21 QUESTION #5 FULL TEXT : Do you snore loudly (louder than talking or can be heard through closeddoors)? Tobacco Use History Tobacco Use History - guest experience manager: Tobacco Use History - guest experience manager Tobacco Use Cigarettes 01/22/21 20:43 Smoking Status Heavy Smoker (>10/day) 12/06/24 05:11 Hx Tobacco Use Yes 12/04/24 20:21 Years Smoking Packs Smoked per Day Smoking Cessation Date was within the last 15 years Hx Smoking Cessation Date Hx Smoking Cessation No 12/04/24 20:21 Counseling Hematologic Medial History Hematologic Hx - guest experience manager: Hematologic Medical Hx - teleprinter installer Hx of Blood Transfusion No 12/04/24 20:21 Hx of Transfusion in last 3 No 12/04/24 20:21 Months Date of Last Transfusion (if within last 3 months) Ever experience any problems No 12/04/24 20:21 with transfusion(s)? Specify any problems Hx of Preganancy in last 3 No 12/04/24 20:21 Months Nurse Filling Out Transfusion MGROVE 12/04/24 20:21 & Questions: Date: 12/04/24 12/04/24 20:21 Time: 20:12/04/24 20:21 Patient unable to answer at this time (ie. confused, unrespo /Reproduction History /Reproductive History - guest experience manager: /Reproductive Hx- guest experience manager Hx Now Gestational Age (in weeks): EDC: Hx Hx Para Hx Section SAB No 06/12/21 02:55 Active Medications Active Medications: Current Medications Generic Name Dose Route Start Last Admin Trade Name Freq PRN Reason Stop Dose Admin Acetaminophen 650 mg 12/04/24 20:21 12/05/24 10:04 Acetaminophen 325 Mg Tablet PO 650 mg Q6H PRN PRN Administration Pain 1-10 Or Fever>100.7 Albuterol Sulfate 2.5 mg 12/04/24 20:21 Albuterol 2.5 Mg/3 Ml Vial.Neb. INHALATION Q2H PRN PRN SHORTNESS OF BREATH Albuterol/Ipratropium 3 ml 12/04/24 20:21 12/12/24 07:36 Ipratropium/Albuterol Sulfate 3 Ml Ampul.Neb INHALATION 3 ml Q4H.RT DACIA Administration Amlodipine Besylate 5 mg 12/05/24 10:00 12/12/24 07:43 Amlodipine 5 Mg Tablet PO 5 mg DAILY DACIA Administration Protocol Aripiprazole 5 mg 12/05/24 10:00 12/12/24 07:42 Aripiprazole 5 Mg Tablet PO 5 mg DAILY DACIA Administration Protocol Atorvastatin Calcium 10 mg 12/04/24 22:00 12/11/24 23:09 Atorvastatin Calcium 10 Mg Tablet PO 10 mg QHS DACIA Administration Cholecalciferol 50 mcg 12/05/24 10:00 12/12/24 07:41 Cholecalciferol (Vit D3) 25 Mcg Tablet (1,000 Units) PO 50 mcg DAILY DACIA Administration Enoxaparin Sodium 40 mg 12/05/24 10:00 12/12/24 07:43 Enoxaparin 40 Mg/0.4 Ml Syringe SC 40 mg DAILY DACIA Administration Guaifenesin 1,200 mg 12/04/24 22:00 12/12/24 07:41 Guaifenesin 1,200 Mg Tablet PO 1,200 mg BID DACIA Administration Hydrochlorothiazide 12.5 mg 12/05/24 08:00 12/12/24 07:41 Hydrochlorothiazide 12.5mg PO 12.5 mg BREAKFAST DACIA Administration Protocol Hydroxyzine Pamoate 25 mg 12/04/24 22:00 12/11/24 23:14 Hydroxyzine Grace 25 Mg Capsule PO 25 mg QHS DACIA Administration Sodium Chloride 100 mls @ 15 mls/hr 12/04/24 20:22 IV .Q6H40M PRN Saline Flush Sodium Chloride 100 mls @ 15 mls/hr 12/04/24 20:22 IV .Q6H40M PRN Additional IVPB Infusion Lisinopril 10 mg 12/05/24 10:00 12/09/24 14:21 Lisinopril 10 Mg Tablet PO 10 mg DAILY DACIA Administration Protocol Lorazepam 0.5 mg 12/04/24 22:00 12/12/24 07:43 Lorazepam 0.5 Mg Tablet PO 0.5 mg BID DACIA Administration Melatonin 3 mg 12/04/24 20:21 Melatonin 3 Mg Tablet PO QHS PRN PRN INSOMNIA Metoprolol Tartrate 25 mg 12/04/24 22:00 12/12/24 07:41 Metoprolol Tartrate 25 Mg Tablet PO 25 mg BID DACIA Administration Protocol Mirtazapine 45 mg 12/04/24 22:00 12/11/24 23:14 Mirtazapine 15 Mg Tablet PO 45 mg QHS DACIA Administration Nicotine 14 mg 12/05/24 10:00 12/12/24 07:42 Nicotine 14 Mg Patch TD 14 mg DAILY DACIA Administration Nystatin 500,000 unit 12/04/24 22:00 12/12/24 07:44 Nystatin 500,000 Unit/5 Ml Udc PO 500,000 unit 4X/DAY DACIA Administration Ondansetron HCl 4 mg 12/04/24 20:21 Ondansetron 4 Mg/2 Ml Vial IV Q8H PRN PRN NAUSEA/VOMITING Pantoprazole Sodium 40 mg 12/05/24 10:00 12/12/24 07:40 Pantoprazole Sodium 40 Mg Tablet PO 40 mg DAILY DACIA Administration Prednisone 40 mg 12/11/24 08:00 12/12/24 07:55 Prednisone 20 Mg Tablet PO 12/16/24 08:01 40 mg BREAKFAST DACIA Administration Senna/Docusate Sodium 2 tablet 12/04/24 20:21 Senna/Docusate Sodium 1 Tablet PO BID PRN PRN Constipation Sodium Chloride 10 - 40 ml 12/04/24 20:22 12/10/24 21:37 0.9% Saline Lock 10 Ml Syringe IV 10 ml UD PRN Administration SALINE FLUSH Throat Lozenges 1 lozenge 12/04/24 20:21 Benzocaine/Menthol 1 Lozenge MUCOUS MEM Q2H PRN PRN SORE THROAT Tramadol HCl 100 mg 12/05/24 12:46 12/12/24 07:40 Tramadol 50 Mg Tablet PO 100 mg Q6H PRN PRN Administration Pain Score 1-10 PFSH Medical History Pancreatic stones HLD (hyperlipidemia) History of alcohol abuse Pneumonia Acute on chronic hypoxic respiratory failure Stage 3 severe COPD by GOLD classification Asthma COPD (chronic obstructive pulmonary disease) Arthritis History of back problems Anxiety and depression Chronic pancreatitis HPV (human papilloma virus) infection Anemia Tobacco abuse GERD (gastroesophageal reflux disease) Benign hypertension Home Medications ?Medication ?Instructions ?Recorded ?Last Taken ?Type cholecalciferol (vitamin D3) 50 50 mcg PO DAILY SUPPLE MENT 12/29/18 10/31/22 History mcg (2,000 unit) capsule pantoprazole 40 mg tablet,delayed 40 mg PO DAILY GERD 08/12/20 10/31/22 History release aripiprazole 5 mg tablet (Abilify) 5 mg PO DAILY mood 01/22/21 10/31/22 History hydroxyzine pamoate 25 mg capsule 25 mg PO QHS SLEEP 0 06/12/21 01/01/24 History mirtazapine 45 mg tablet 45 mg PO QHS sleep 01/16/22 01/01/24 History simvastatin 20 mg tablet 20 mg PO QHS cholesterol 01/1801/01/24 History hydrochlorothiazide 12.5 mg capsule 12.5 mg PO BREAK days #30 01/05/24 Unknown Rx caps metoprolol tartrate 25 mg tablet 25 mg PO BID 30 days #60 tabs 01/05/24 Unknown Rx amlodipine 10 mg tablet 5 mg PO DAILY 01/26/24 Unkno wn History ipratropium 0.5 mg-albuterol 3 mg 3 ml inhalation Q4H PRN shortness 01/26/24 Unknown Rx (2.5 mg base)/3 mL nebulization of breath or wheezing #90 mL soln lisinopril 10 mg tablet 10 mg PO QDAY 01/26/24 Unkno wn History albuterol sulfate 90 mcg/actuation 2 puff inhalation Q 4H PRN 05/11/24 Unknown Rx aerosol inhaler (Ventolin HFA) shortness of breath or wheezing #18 grams lorazepam 0.5 mg tablet 0.5 mg PO BID 05/11/24 Unkno wn History fluticasone fur. 200 mcg-umeclid 1 inh inhalation NILAY Y #3 ea 08/29/24 Unknown Rx 62.5 mcg-vilant 25 mcg inhalat.powder (Trelegy Ellipta) Allergy/AdvReac Type Severity Reaction Status Date / Time clindamycin Allergy Intermediate Hives Verified 12/04/24 15:55 Penicillins Allergy Hives Verified 12/04/24 15:55 sulfamethoxazole (From Allergy Other Verified 12/04/24 15:55 Bactrim) trimethoprim (From Bactrim) Allergy Other Verified 12/04/24 15:55 hydrocodone (From Bode) AdvReac Itching Verified 12/04/24 15:55 Family History Mother Diabetes Hypertension Heart disease High cholesterol Arthritis Thyroid disorder Brother Hypertension Sister Cancer cervical Thyroid disorder Father Kidney disease Daughter Thyroid disorder Family History no significant family his Surgical History History of tubal ligation History of colonoscopy History of appendectomy Surgical History no surgical history Social History household members: family Smoking Status: Heavy Smoker (>10/day) Tobacco: How many years used: 30 second hand exposure: Yes alcohol intake: former details: Sober since 2020. substance use type: does not use caffeine: Yes Review of Systems (Anesthesia) ROS Narrative System reviewed and no additional complaints, except as documented. 12/12/24 1215 dillon MENENDEZ> Date _ Jeferson Breaux MD Cosigner Signature: Date CC: ~ Signed [facility]03-17-2025 Progress note [facility] Medical Records Department [address] [place] [address] Progress Note - Salon Leader 12/12/24 1000 MR#: [id number] Acct: [id number] Name: VINGRACIE S Rep #:[id number] : 1965 59 From: Gonzalo Sebastian DO PCP: Dr. Annmarie Elkins MD Status:ADM I N Location: [place] [address] Assessment & Plan Assessment/Plan (1) COPD with acute exacerbation: (2) Acute hypoxic respiratory failure: PLAN: Plan RECOMMENDATIONS: 1. Continue to wean supplemental oxygen as tolerated. 2. Continue bronchodilators and steroids. The patient completed treatment course of azithromycin. 3. Dietary advancement per speech therapy. 4. Continue appropriate DVT prophylaxis. 5. Continue nicotine replacement therapy. 6. Aggressive medical management of underlying anxiety. 7. Perform walking oximetry study prior to consideration for discharge home. 8. Outpatient pulmonary follow-up after discharge is warranted. 9. Will sign off at this time. Please call with any additional questions. IMPRESSIONS: 1. Acute respiratory failure with hypoxemia and hypercapnia Unclear precipitating etiology. However, aspiration and underlying anxiety are likely contributing factors. CTA chest showed no evidence for pulmonary embolism. There was no evidence of a focal infiltrate to suggest pneumonia. Echocardiogram revealed intact systolic function. Right ventricular systolic pressure was unable to be estimated. Respiratory viral panel was negative. The patient does have evidence of end-stage lung disease based upon pulmonary function studies completed last month. Thepatient completed a modified barium swallow with mild to moderate oropharyngeal dysphagia noted. Speech therapy is following with dietary advancement per recommendations. In addition, gastroenterology evaluation with EGD was recommended. The patient's oxygenationstatus has improved. Continue to wean supplemental oxygen to maintain saturations at or above 90%. Recommend performing a 6-minute walk test prior to consideration for discharge home. The patient should follow-up in the pulmonarymedicine office within 2 weeks of discharge. 2. Chronic tobacco dependency/bipolar disorder/depression/anxiety/chronic pancreatitis Complicates care, management, recovery and prognosis. Continue home medicationsas indicated. This note was generated with [employer] dictation software. It may contain incorrectwords, spelling, and punctuation that were not noted in checking the note beforesigning. Subjective Subjective The patient was seen and examined at the bedside this morning. Events from the last 24 hours have been reviewed. The patient is currently afebrile, hemodynamically stable and maintaining appropriate oxygen saturations on 3 L/minvia nasal cannula. White blood cell count is elevated at 25,000. Creatinine iswithin normal limits. The patient is anxious to be discharged home. She is awaiting an upper endoscopy today by gastroenterology. Objective Data Objective Data The patient's most recent lab work, culture data and imaging studies have all been personally reviewed. COVID, influenza and RSV PCR's were negative. Vital Signs: Vital Signs Temp Pulse Resp BP Pulse Ox O2 Del Method O2 Flow Rate 97.9 F 97 16 143/81 H 93 Nasal Cannula 3 12/12/24 08:50 12/12/24 08:50 12/12/24 08:50 12/12/24 08:50 12/12/24 09:24 12/12/24 09:24 12/12/24 09:24 FiO2 56 12/07/24 08:56 Oxygen Flow Rate (L/min) 3 Oxygen Delivery Method Nasal Cannula Weight: 133 lb 13.129 oz Body Mass Index (BMI) 23.7 Intake & Output: Intake and Output for Last 24 Hours 12/10/24 12/11/24 12/12/24 23:59 23:59 23:59 Intake Total 480 / 480 760 / 1210 450 / 450 Output Total 150 / 150 0 / 0 Balance 330 / 330 760 / 1210 450 / 450 Lab / Micro Data Attestation: I reviewed the patient's lab results. 12/12/24 03:43 12/12/24 03:43 Labs: Laboratory Results - last 24 hr 12/12/24 03:43: WBC 25.7 H, RBC 5.15, Hgb 13.7, Hct 44.4, MCV 86.2, MCH 26.6 L, MCHC 30.9 L, RDW Std Deviation 46.5 H, RDW Coeff of Min 14.6, Plt Count 345, MPV10.1, Neut % (Auto) Not Reportable, Absolute Neuts (auto) 17.2 H, Absolute Lymphs (auto) 4.36, Total Counted 100, Neutrophils % (Manual) 65, Band Neutrophils % 2, Lymphocytes % (Manual) 17 L, Monocytes % (Manual) 5, Metamyelocytes % 1, Myelocytes % 7 H, Differential Comment SCANNED, Diff Path Review January, Sodium 137, Potassium 4.1, Chloride 95 L, Carbon Dioxide 34.4 H, Anion Gap 8, BUN 25 H, Creatinine 0.77, Estim Creat Clear Calc 63.47, Est GFR (MDRD) Non-Af 87, BUN/Creatinine Ratio 32.0 H, Glucose 80, Calcium 8.9 Micro: Microbiology 12/10/24 21:20 Sputum, Expectorated/Coughed Gram Stain - Final 12/07/24 14:40 Mucosa - Nose SARS-CoV-2, Influenza & RSV (PCR) - Final 12/04/24 21:23 Mucosa - Nasopharyngeal Respiratory Panel (PCR) - Final 12/04/24 16:22 Mucosa - Nose SARS-CoV-2, Influenza & RSV (PCR) - Final Radiography Diagnostic Testing: Radiology Impression Echocardiogram 12/05/24 13:19 Interpretation Summary The estimated ejection fraction is 70 %. Unable to assess diastolic dysfunction. Trivial mitral valve insufficiency. Ordering Physician: Gonzalo Sebastian Referring Physician: ANNMARIE ELKINS Performed By: Grazyna Lazaro RCS Rhythm Strip Rhythm Strip: Sinus Tach Rate: 121 Ectopy: None Physical Exam Const alert, oriented x3 and no apparent distress General Appearance: cooperative HEENT normocephalic and head/scalp atraumatic Eyes PERRL, EOMs intact bilaterally and conjunctivae normal Neck supple General: trachea midline Chest inspection of chest normal Resp normal respiratory effort Auscultation: diminished lung sounds; Negative for rales, rhonchi or wheezes Cardio regular rate and regular rhythm GI normal to inspection, nondistended, normoactive bowel sounds Extremity no clubbing, cyanosis or edema Skin no rashes or lesions noted Neuro CN's II-XII intact bilaterally, moves all extremities and no focal motor deficits Psych Mood & Affect: anxious Charges/Coding Visit Charges Inpatient E&M: 24256 Subs Hosp L2 12/12/24 1129 Cosigner Signature (if applicable): CC: ~ Signed [facility]03-16-2025 Progress note Author Anastacia [facility] Note Date/Time December 11, 2024 11: [address] [place] [address] System Medical Records Department [address] [place] [address] Progress Note 12/11/24 1134 MR#: [id number] Acct: [id number] Name: GRACIE BANUELOS Rep #:[id number] : 1965 59 From: Anastacia Bonilla MD PCP: Dr. Annmarie Elkins MD Status:ADM I N Location: [place] [address] Subjective Subjective Patient seen and examined. She is feeling better today. She is on 3 L of oxygen. She has no active complaints. Review of systems otherwise negative. She has remained hemodynamically stable. She is awaiting GI evaluation. Objective Data Objective Data Vital Signs: Vital Signs Temp Pulse Resp BP Pulse Ox O2 Del Method O2 Flow Rate 97.7 F L 91 18 93/69 93 Nasal Cannula 3 12/11/24 08:06 12/11/24 11:10 12/11/24 11:10 12/11/24 08:06 12/11/24 08:06 12/11/24 09:11 12/11/24 09:11 FiO2 56 12/07/24 08:56 Oxygen Flow Rate (L/min) 3 Oxygen Delivery Method Nasal Cannula Weight: 134 lb Body Mass Index (BMI) 23.7 Intake & Output: Intake and Output for Last 24 Hours 12/09/24 12/10/24 12/11/24 23:59 23:59 23:59 Intake Total 1180 / 1180 480 / 480 Output Total 1250 / 1400 150 / 150 Balance -70 / -220 330 / 330 Lab / Micro Data 12/11/24 04:25 12/11/24 04:25 Labs: Laboratory Results - last 24 hr 12/10/24 06:02: Neutrophils % (Manual) 81 H, Band Neutrophils % 1, Lymphocytes %(Manual) 8 L, Monocytes % (Manual) 4, Eosinophils % (Manual) 1, Metamyelocytes %3 H, Myelocytes % 2 H 12/11/24 04:25: WBC 21.2 H, RBC 5.13, Hgb 13.9, Hct 44.1, MCV 86.0, MCH 27.1, MCHC 31.5 L, RDW Std Deviation 46.7 H, RDW Coeff of Min 14.8 H, Plt Count 310, MPV 10.3, Neut % (Auto) Not Reportable, Absolute Neuts (auto) 10.4 H, Absolute Lymphs (auto) 7.63 H, Total Counted 100, Neutrophils % (Manual) 49, Lymphocytes % (Manual) 36, Monocytes % (Manual) 10, Metamyelocytes % 4 H, Myelocytes % 1 H, Diff Path Review May , Platelet Estimate ADEQUATE, Anisocytosis 1+, Microcytosis 1+, Ovalocytes 1+, Sodium 137, Potassium 4.4, Chloride 96 L, CarbonDioxide 27.6, Anion Gap 13, BUN 29 H, Creatinine 0.79, Estim Creat Clear Calc 61.86, Est GFR (MDRD) Non-Af 85, BUN/Creatinine Ratio 36.7 H, Glucose 79, Calcium 9.0 Micro: Microbiology 12/07/24 14:40 Mucosa - Nose SARS-CoV-2, Influenza & RSV (PCR) - Final 12/04/24 21:23 Mucosa - Nasopharyngeal Respiratory Panel (PCR) - Final 12/04/24 16:22 Mucosa - Nose SARS-CoV-2, Influenza & RSV (PCR) - Final Rhythm Strip Rhythm Strip: Sinus Tach Rate: 121 Ectopy: None Physical Exam Const alert, oriented x3 and no apparent distress Constitutional Narrative: on 4L of oxygen by nasal canula. General Appearance: cooperative, well kempt and well developed Orientation / Consciousness: awake, oriented to person, oriented to place and oriented to time HEENT normocephalic, head/scalp atraumatic, moist oral mucous membranes and oropharynxnormal Eyes PERRL, EOMs intact bilaterally and conjunctivae normal Neck no lymphadenopathy, supple, no JVD, thyroid normal and no carotid bruits General: trachea midline Lymph Lymphatic: no lymphadenopathy noted and no lymphedema noted Resp normal respiratory effort, no retractions and no use of accessory muscles Resp Narrative: mildly diminished breath sounds bibasally, no wheezes or crackles. On 3L of oxygen. Cardio regular rate, regular rhythm, S1 normal heart sound and S2 normal heart sound GI normal to inspection, nondistended, normoactive bowel sounds, soft to palpation,non-tender and non-distended Extremity normal capillary refill, no clubbing, cyanosis or edema and no calf tenderness General Extremity: no tenderness to palpation of joints or extremities Skin no rashes or lesions noted General Skin Exam: no breakdown Neuro oriented x3, CN's II-XII intact bilaterally, moves all extremities, no focal motor deficits and no sensory deficits noted Sensorium / Orientation: awake and alert Speech: speech normal Motor Exam: strength 5/5 throughout and general weakness Psych thought process normal, cooperative and affect normal Appearance: appropriate Assessment & Plan Assessment/Plan (1) COPD with acute exacerbation: (2) Acute hypoxic respiratory failure: PLAN: Plan #Acute on chronic hypoxic respiratory failure due to COPD exacerbation * On breathing treatment with bronchodilators. * still remains on 4L of oxygen by nasal canula * Titrate oxygen to maintain saturation above 90%. Breathing treatments bronchodilators. * Of note CTA of the chest on admission showed no evidence of PE. * 2D echo showed normal left ventricular systolic function and EF of 70%. Respiratory panel was also negative. * now on PO prednisone * #Chronic abdominal pain * On tramadol. Had a pancreatic block injection which does not seem to have helped. Will follow-up with pain management on outpatient basis. #Leucocytosis: wbc is 21.2. Likely due to steroids. Will monitor for now. #Oropharyngeal dysphagia * Speech therapy on board. * Modified barium swallow on 12/08/2024 showed mild to moderate oropharyngeal dysphagia * On modified diet as per speech therapy. * gastroenterology also consulted for evaluation. Per Dr Friend today, for EGD tomorrow * #Hypertension: On amlodipine and hydrochlorothiazide as well as lisinopril #Chronic anxiety: On Ativan as needed DVT prophylaxis: lovenox Charges/Coding Visit Charges Inpatient E&M: 78918 Subs Hosp L2 12/11/24 1150 <Electronically signed by Anastacia Bonilla MD> Anastacia Bonilla MD Cosigner Signature (if applicable): CC: ~ Signed [facility] Work Phone: 1(767) 532-990303-16-2025 Progress note [facility] Medical Records Department [address] [place] [address] Progress Note 12/11/24 1134 MR#: [id number] Acct: [id number] Name: GRACIE BANUELOS Rep #:[id number] : 1965 59 From: Anastacia Bonilla MD PCP: Dr. Annmarie Elkins MD Status:ADM I N Location: [place] [address] Subjective Subjective Patient seen and examined. She is feeling better today. She is on 3 L of oxygen. She has no active complaints. Review of systems otherwise negative. She has remained hemodynamically stable. She is awaiting GI evaluation. Objective Data Objective Data Vital Signs: Vital Signs Temp Pulse Resp BP Pulse Ox O2 Del Method O2 Flow Rate 97.7 F L 91 18 93/69 93 Nasal Cannula 3 12/11/24 08:06 12/11/24 11:10 12/11/24 11:10 12/11/24 08:06 12/11/24 08:06 12/11/24 09:11 12/11/24 09:11 FiO2 56 12/07/24 08:56 Oxygen Flow Rate (L/min) 3 Oxygen Delivery Method Nasal Cannula Weight: 134 lb Body Mass Index (BMI) 23.7 Intake & Output: Intake and Output for Last 24 Hours 12/09/24 12/10/24 12/11/24 23:59 23:59 23:59 Intake Total 1180 / 1180 480 / 480 Output Total 1250 / 1400 150 / 150 Balance -70 / -220 330 / 330 Lab / Micro Data 12/11/24 04:25 12/11/24 04:25 Labs: Laboratory Results - last 24 hr 12/10/24 06:02: Neutrophils % (Manual) 81 H, Band Neutrophils % 1, Lymphocytes %(Manual) 8 L, Monocytes % (Manual) 4, Eosinophils % (Manual) 1, Metamyelocytes %3 H, Myelocytes % 2 H 12/11/24 04:25: WBC 21.2 H, RBC 5.13, Hgb 13.9, Hct 44.1, MCV 86.0, MCH 27.1, MCHC 31.5 L, RDW Std Deviation 46.7 H, RDW Coeff of Min 14.8 H, Plt Count 310, MPV 10.3, Neut % (Auto) Not Reportable, Absolute Neuts (auto) 10.4 H, Absolute Lymphs (auto) 7.63 H, Total Counted 100, Neutrophils % (Manual)49, Lymphocytes % (Manual) 36, Monocytes % (Manual) 10, Metamyelocytes % 4 H, Myelocytes % 1 H, Diff Path Review May , Platelet Estimate ADEQUATE, Anisocytosis 1+, Microcytosis 1+, Ovalocytes 1+,Sodium 137, Potassium 4.4, Chloride 96 L, CarbonDioxide 27.6, Anion Gap 13, BUN 29 H, Creatinine 0.79, Estim Creat Clear Calc 61.86, Est GFR (MDRD) Non-Af 85, BUN/Creatinine Ratio 36.7 H, Glucose 79, Calcium 9.0 Micro: Microbiology 12/07/24 14:40 Mucosa - Nose SARS-CoV-2, Influenza & RSV (PCR) - Final 12/04/24 21:23 Mucosa - Nasopharyngeal Respiratory Panel (PCR) - Final 12/04/24 16:22 Mucosa - Nose SARS-CoV-2, Influenza & RSV (PCR) - Final Rhythm Strip Rhythm Strip: Sinus Tach Rate: 121 Ectopy: None Physical Exam Const alert, oriented x3 and no apparent distress Constitutional Narrative: on 4L of oxygen by nasal canula. General Appearance: cooperative, well kempt and well developed Orientation / Consciousness: awake, oriented to person, oriented to place and oriented to time HEENT normocephalic, head/scalp atraumatic, moist oral mucous membranes and oropharynxnormal Eyes PERRL, EOMs intact bilaterally and conjunctivae normal Neck no lymphadenopathy, supple, no JVD, thyroid normal and no carotid bruits General: trachea midline Lymph Lymphatic: no lymphadenopathy noted and no lymphedema noted Resp normal respiratory effort, no retractions and no use of accessory muscles Resp Narrative: mildly diminished breath sounds bibasally, no wheezes or crackles. On 3L of oxygen. Cardio regular rate, regular rhythm, S1 normal heart sound and S2 normal heart sound GI normal to inspection, nondistended, normoactive bowel sounds, soft to palpation,non-tender and non-distended Extremity normal capillary refill, no clubbing, cyanosis or edema and no calf tenderness General Extremity: no tenderness to palpation of joints or extremities Skin no rashes or lesions noted General Skin Exam: no breakdown Neuro oriented x3, CN's II-XII intact bilaterally, moves all extremities, no focal motor deficits and no sensory deficits noted Sensorium / Orientation: awake and alert Speech: speech normal Motor Exam: strength 5/5 throughout and general weakness Psych thought process normal, cooperative and affect normal Appearance: appropriate Assessment & Plan Assessment/Plan (1) COPD with acute exacerbation: (2) Acute hypoxic respiratory failure: PLAN: Plan #Acute on chronic hypoxic respiratory failure due to COPD exacerbation * On breathing treatment with bronchodilators. * still remains on 4L of oxygen by nasal canula * Titrate oxygen to maintain saturation above 90%. Breathing treatments bronchodilators. * Of note CTA of the chest on admission showed no evidence of PE. * 2D echo showed normal left ventricular systolic function and EF of 70%. Respiratory panel was also negative. * now on PO prednisone * #Chronic abdominal pain * On tramadol. Had a pancreatic block injection which does not seem to have helped. Will follow-up with pain management on outpatient basis. #Leucocytosis: wbc is 21.2. Likely due to steroids. Will monitor for now. #Oropharyngeal dysphagia * Speech therapy on board. * Modified barium swallow on 12/08/2024 showed mild to moderate oropharyngeal dysphagia * On modified diet as per speech therapy. * gastroenterology also consulted for evaluation. Per Dr Friend today, for EGD tomorrow * #Hypertension: On amlodipine and hydrochlorothiazide as well as lisinopril #Chronic anxiety: On Ativan as needed DVT prophylaxis: lovenox Charges/Coding Visit Charges Inpatient E&M: 88753 Subs Hosp L2 12/11/24 1150 Anastacia Bonilla MD Cosigner Signature (if applicable): CC: ~ Signed [facility]03-15-2025 [facility] Date/Time December 10, 2024 12: 56pm [facility] Medical Records Department [address] [place] [address] Progress Note 12/10/24 1251 MR#: [id number] Acct: [id number] Name: GRACIE BANUELOS Rep #:[id number] : 1965 59 From: Anastacia Bonilla MD PCP: Dr. Annmarie Elkins MD Status:ADM I N Location: [place] [address] Subjective Subjective Patient seen and examined. She said she felt much better today. She denied any fever, chills, cough, chest pain, palpitations, dizziness, nausea, vomiting or any other symptoms. Review of systems is otherwise negative. Objective Data Objective Data Vital Signs: Vital Signs Temp Pulse Resp BP Pulse Ox O2 Del Method O2 Flow Rate 97.3 F L 89 19 H 104/71 93 Nasal Cannula 4 12/10/24 08:15 12/10/24 08:40 12/10/24 08:15 12/10/24 10:01 12/10/24 08:15 12/10/24 08:26 12/10/24 08:26 FiO2 56 12/07/24 08:56 Oxygen Flow Rate (L/min) 4 Oxygen Delivery Method Nasal Cannula Weight: 134 lb 0.657 oz Body Mass Index (BMI) 23.7 Intake & Output: Intake and Output for Last 24 Hours 12/08/24 12/09/24 12/10/24 23:59 23:59 23:59 Intake Total 240 / 340 1180 / 1180 480 / 480 Output Total 400 / 950 1250 / 1400 150 / 150 Balance -160 / -610 -70 / -220 330 / 330 Lab / Micro Data 12/10/24 06:02 12/10/24 06:02 Labs: Laboratory Results - last 24 hr 12/10/24 06:02: WBC 18.8 H, RBC 5.08, Hgb 13.8, Hct 43.5, MCV 85.6, MCH 27.2, MCHC 31.7 L, RDW Std Deviation 46.8 H, RDW Coeff of Min 14.9 H, Plt Count 327, MPV 10.5, Neut % (Auto) Not Reportable, Absolute Neuts (auto) 15.4 H, Absolute Lymphs (auto) 1.50, Total Counted 100, Neutrophils % (Manual) 1 L, Diff Path Review May foll, Platelet Estimate A, Plt Morphology Comment G, Sodium 136, Potassium 5.2 H, Chloride 97 L, Carbon Dioxide 28.4, Anion Gap 11, BUN 34 H, Creatinine 0.82, Estim Creat Clear Calc 59.60, Est GFR (MDRD) Non-Af 81, BUN/Creatinine Ratio 41.3 H, Glucose 157 H, Calcium 9.5 Micro: Microbiology 12/07/24 14:40 Mucosa - Nose SARS-CoV-2, Influenza & RSV (PCR) - Final 12/04/24 21:23 Mucosa - Nasopharyngeal Respiratory Panel (PCR) - Final 12/04/24 16:22 Mucosa - Nose SARS-CoV-2, Influenza & RSV (PCR) - Final Rhythm Strip Rhythm Strip: Sinus Tach Rate: 121 Ectopy: None Physical Exam Const alert, oriented x3 and no apparent distress Constitutional Narrative: on 4L of oxygen by nasal canula. General Appearance: cooperative, well kempt and well developed Orientation / Consciousness: awake, oriented to person, oriented to place and oriented to time HEENT normocephalic, head/scalp atraumatic, moist oral mucous membranes and oropharynxnormal Eyes PERRL, EOMs intact bilaterally and conjunctivae normal Neck no lymphadenopathy, supple, no JVD, thyroid normal and no carotid bruits General: trachea midline Lymph Lymphatic: no lymphadenopathy noted and no lymphedema noted Resp Resp Narrative: mildly diminished breath sounds bibasally, no wheezes or crackles. On 4L of oxygen. Cardio regular rate, regular rhythm, S1 normal heart sound, S2 normal heart sound and no murmurs GI normal to inspection, nondistended, normoactive bowel sounds, soft to palpation,non-tender and non-distended Extremity normal capillary refill, no clubbing, cyanosis or edema and no calf tenderness General Extremity: no tenderness to palpation of joints or extremities Skin no rashes or lesions noted General Skin Exam: no breakdown Neuro oriented x3, CN's II-XII intact bilaterally, moves all extremities, no focal motor deficits and no sensory deficits noted Sensorium / Orientation: awake and alert Speech: speech normal Motor Exam: strength 5/5 throughout and general weakness Psych thought process normal, cooperative and affect normal Appearance: appropriate Assessment & Plan Assessment/Plan (1) COPD with acute exacerbation: (2) Acute hypoxic respiratory failure: PLAN: Plan #Acute on chronic hypoxic respiratory failure due to COPD exacerbation * On IV Solu-Medrol. On breathing treatment with bronchodilators. * remains on 4L of oxygen by nasal canula * Titrate oxygen to maintain saturation above 90%. Breathing treatments bronchodilators. * Of note CTA of the chest on admission showed no evidence of PE. * 2D echo showed normal left ventricular systolic function and EF of 70%. Respiratory panel was also negative. * will switch to PO prednisone today. * #Chronic abdominal pain * On tramadol. Had a pancreatic block injection which does not seem to have helped. Will follow-up with pain management on outpatient basis. #Oropharyngeal dysphagia * Speech therapy on board. * Modified barium swallow on 12/08/2024 showed mild to moderate oropharyngeal dysphagia * On modified diet as per speech therapy. * gastroenterology also consulted for evaluation. * #Hypertension: On amlodipine and hydrochlorothiazide as well as lisinopril #Chronic anxiety: On Ativan as needed DVT prophylaxis: lovenox Charges/Coding Visit Charges Inpatient E&M: 35968 Subs Hosp L2 12/10/24 1256 <Electronically signed by Anastacia Bonilla MD> Anastacia Bonilla MD Cosigner Signature (if applicable): CC: ~ Signed [facility] Work Phone: 1(524) 319-294303-15-2025 Progress note [facility] Medical Records Department [address] [place] [address] Progress Note 12/10/24 1251 MR#: [id number] Acct: [id number] Name: GRACIE BANUELOS Rep #:[id number] : 1965 59 From: Anastacia Bonilla MD PCP: Dr. Annmarie Elkins MD Status:ADM I N Location: [place] [address] Subjective Subjective Patient seen and examined. She said she felt much better today. She denied any fever, chills, cough, chest pain, palpitations, dizziness, nausea, vomiting or any other symptoms. Review of systems is otherwise negative. Objective Data Objective Data Vital Signs: Vital Signs Temp Pulse Resp BP Pulse Ox O2 Del Method O2 Flow Rate 97.3 F L 89 19 H 104/71 93 Nasal Cannula 4 12/10/24 08:15 12/10/24 08:40 12/10/24 08:15 12/10/24 10:01 12/10/24 08:15 12/10/24 08:26 12/10/24 08:26 FiO2 56 12/07/24 08:56 Oxygen Flow Rate (L/min) 4 Oxygen Delivery Method Nasal Cannula Weight: 134 lb 0.657 oz Body Mass Index (BMI) 23.7 Intake & Output: Intake and Output for Last 24 Hours 12/08/24 12/09/24 12/10/24 23:59 23:59 23:59 Intake Total 240 / 340 1180 / 1180 480 / 480 Output Total 400 / 950 1250 / 1400 150 / 150 Balance -160 / -610 -70 / -220 330 / 330 Lab / Micro Data 12/10/24 06:02 12/10/24 06:02 Labs: Laboratory Results - last 24 hr 12/10/24 06:02: WBC 18.8 H, RBC 5.08, Hgb 13.8, Hct 43.5, MCV 85.6, MCH 27.2, MCHC 31.7 L, RDW Std Deviation 46.8 H, RDW Coeff of Min 14.9 H, Plt Count 327, MPV 10.5, Neut % (Auto) Not Reportable, Absolute Neuts (auto) 15.4 H, Absolute Lymphs (auto) 1.50, Total Counted 100, Neutrophils % (Manual) 1L, Diff Path Review May foll, Platelet Estimate A, Plt Morphology Comment G, Sodium 136, Potassium 5.2 H, Chloride 97 L, Carbon Dioxide 28.4, Anion Gap 11, BUN 34 H, Creatinine 0.82, Estim Creat Clear Calc 59.60, Est GFR (MDRD) Non-Af 81, BUN/Creatinine Ratio 41.3 H, Glucose 157 H, Calcium 9.5 Micro: Microbiology 12/07/24 14:40 Mucosa - Nose SARS-CoV-2, Influenza & RSV (PCR) - Final 12/04/24 21:23 Mucosa - Nasopharyngeal Respiratory Panel (PCR) - Final 12/04/24 16:22 Mucosa - Nose SARS-CoV-2, Influenza & RSV (PCR) - Final Rhythm Strip Rhythm Strip: Sinus Tach Rate: 121 Ectopy: None Physical Exam Const alert, oriented x3 and no apparent distress Constitutional Narrative: on 4L of oxygen by nasal canula. General Appearance: cooperative, well kempt and well developed Orientation / Consciousness: awake, oriented to person, oriented to place and oriented to time HEENT normocephalic, head/scalp atraumatic, moist oral mucous membranes and oropharynxnormal Eyes PERRL, EOMs intact bilaterally and conjunctivae normal Neck no lymphadenopathy, supple, no JVD, thyroid normal and no carotid bruits General: trachea midline Lymph Lymphatic: no lymphadenopathy noted and no lymphedema noted Resp Resp Narrative: mildly diminished breath sounds bibasally, no wheezes or crackles. On 4L of oxygen. Cardio regular rate, regular rhythm, S1 normal heart sound, S2 normal heart sound and no murmurs GI normal to inspection, nondistended, normoactive bowel sounds, soft to palpation,non-tender and non-distended Extremity normal capillary refill, no clubbing, cyanosis or edema and no calf tenderness General Extremity: no tenderness to palpation of joints or extremities Skin no rashes or lesions noted General Skin Exam: no breakdown Neuro oriented x3, CN's II-XII intact bilaterally, moves all extremities, no focal motor deficits and no sensory deficits noted Sensorium / Orientation: awake and alert Speech: speech normal Motor Exam: strength 5/5 throughout and general weakness Psych thought process normal, cooperative and affect normal Appearance: appropriate Assessment & Plan Assessment/Plan (1) COPD with acute exacerbation: (2) Acute hypoxic respiratory failure: PLAN: Plan #Acute on chronic hypoxic respiratory failure due to COPD exacerbation * On IV Solu-Medrol. On breathing treatment with bronchodilators. * remains on 4L of oxygen by nasal canula * Titrate oxygen to maintain saturation above 90%. Breathing treatments bronchodilators. * Of note CTA of the chest on admission showed no evidence of PE. * 2D echo showed normal left ventricular systolic function and EF of 70%. Respiratory panel was also negative. * will switch to PO prednisone today. * #Chronic abdominal pain * On tramadol. Had a pancreatic block injection which does not seem to have helped. Will follow-up with pain management on outpatient basis. #Oropharyngeal dysphagia * Speech therapy on board. * Modified barium swallow on 12/08/2024 showed mild to moderate oropharyngeal dysphagia * On modified diet as per speech therapy. * gastroenterology also consulted for evaluation. * #Hypertension: On amlodipine and hydrochlorothiazide as well as lisinopril #Chronic anxiety: On Ativan as needed DVT prophylaxis: lovenox Charges/Coding Visit Charges Inpatient E&M: 63367 Subs Hosp L2 12/10/24 1256 Anastacia Bonilla MD Cosigner Signature (if applicable): CC: ~ Signed [facility]03-14-2025 Progress [facility] Note Date/Time December 09, 2024 4:3 3pm [facility] Medical Records Department [address] [place] [address] Progress Note 12/09/24 1351 MR#: [id number] Acct: [id number] Name: GRACIE BANUELOS Rep #:[id number] : 1965 59 From: Anastacia Bonilla MD PCP: Dr. Annmarie Elkins MD Status:ADM I N Location: [place] [address] Subjective Subjective Patient seen and examined. She was lying comfortably in bed. She had no activecomplaints. He denied any fever, any chills, any palpitations or dizziness, anynausea or vomiting. Review of systems otherwise negative. She is on 4 L of oxygen. She is down to 4 L from 12 L yesterday. Objective Data Objective Data Vital Signs: Vital Signs Temp Pulse Resp BP Pulse Ox O2 Del Method O2 Flow Rate 98.5 F 94 20 H 94/83 H 95 Nasal Cannula 4 12/09/24 10:31 12/09/24 10:31 12/09/24 10:31 12/09/24 10:31 12/09/24 10:31 12/09/24 10:31 12/09/24 10:31 FiO2 56 12/07/24 08:56 Oxygen Flow Rate (L/min) 4 Oxygen Delivery Method Nasal Cannula Weight: 132 lb 11.492 oz Body Mass Index (BMI) 23.5 Intake & Output: Intake and Output for Last 24 Hours 12/07/24 12/08/24 12/09/24 23:59 23:59 23:59 Intake Total 840 / 960 240 / 340 100 / 100 Output Total 1250 / 1650 400 / 950 950 / 950 Balance -410 / -690 -160 / -610 -850 / -850 Lab / Micro Data 12/09/24 06:59 12/09/24 06:59 Labs: Laboratory Results - last 24 hr 12/09/24 06:59: WBC 15.9 H, RBC 4.93, Hgb 13.4, Hct 42.4, MCV 86.0, MCH 27.2, MCHC 31.6 L, RDW Std Deviation 47.7 H, RDW Coeff of Min 15.1 H, Plt Count 296, MPV 10.8, Neut % (Auto) Not Reportable, Absolute Neuts (auto) 13.4 H, Absolute Lymphs (auto) 1.59, Total Counted 100, Neutrophils % (Manual) 84 H, Lymphocytes % (Manual) 10 L, Monocytes % (Manual) 6, Diff Path Review January, Platelet Estimate ADEQUATE, RBC Morphology NORM C+C, Sodium 135, Potassium 5.0, Chloride 96 L, Carbon Dioxide 27.3, Anion Gap 13, BUN 35 H, Creatinine 0.85, Estim Creat Clear Calc 57.49, Est GFR (MDRD) Non-Af 78, BUN/Creatinine Ratio 40.8 H, Oatogir155 H, Calcium 9.8 Micro: Microbiology 12/07/24 14:40 Mucosa - Nose SARS-CoV-2, Influenza & RSV (PCR) - Final 12/04/24 21:23 Mucosa - Nasopharyngeal Respiratory Panel (PCR) - Final 12/04/24 16:22 Mucosa - Nose SARS-CoV-2, Influenza & RSV (PCR) - Final Rhythm Strip Rhythm Strip: Sinus Tach Rate: 121 Ectopy: None Physical Exam Const alert, oriented x3 and no apparent distress General Appearance: cooperative and well developed HEENT normocephalic, head/scalp atraumatic, moist oral mucous membranes and oropharynxnormal Eyes PERRL and EOMs intact bilaterally Neck no lymphadenopathy and supple Lymph Lymphatic: no lymphadenopathy noted and no lymphedema noted Resp Resp Narrative: mildly diminished breath sounds bibasally, no wheezes or crackles. On 4L of oxygen. Cardio regular rate, regular rhythm, S1 normal heart sound, S2 normal heart sound and no murmurs GI normal to inspection, nondistended, normoactive bowel sounds, soft to palpation,non-tender and non-distended Extremity normal capillary refill, no clubbing, cyanosis or edema and no calf tenderness General Extremity: no tenderness to palpation of joints or extremities Skin General Skin Exam: no breakdown Neuro CN's II-XII intact bilaterally, no focal motor deficits and no sensory deficits noted Motor Exam: strength 5/5 throughout and general weakness Psych thought process normal, cooperative and affect normal Appearance: appropriate Assessment & Plan Assessment/Plan (1) COPD with acute exacerbation: (2) Acute hypoxic respiratory failure: PLAN: Plan #Acute on chronic hypoxic respiratory failure due to COPD exacerbation * On IV Solu-Medrol. On breathing treatment with bronchodilators. * Down to 4 L of oxygen from 12 L yesterday. * Titrate oxygen to maintain saturation above 90%. Breathing treatments bronchodilators. * Of note CTA of the chest on admission showed no evidence of PE. 2D echo showed normal left ventricular systolic function and EF of 70%. Respiratory panel was also negative. * #Chronic abdominal pain * On tramadol. Had a pancreatic block injection which does not seem to have helped. Will follow-up with pain management on outpatient basis. #Oropharyngeal dysphagia * Speech therapy on board. * Modified barium swallow on 12/08/2024 showed mild to moderate oropharyngeal dysphagia * On modified diet as per speech therapy. #Hypertension: On amlodipine and hydrochlorothiazide as well as lisinopril #Chronic anxiety: On Ativan as needed DVT prophylaxis: lovenox Charges/Coding Visit Charges Inpatient E&M: 29201 Subs Hosp L2 12/09/24 1633 <Electronically signed by Anastacia Bonilla MD> Anastacia Bonilla MD Cosigner Signature (if applicable): CC: ~ Signed [facility] Work Phone: [phone]) 937-845103-14-2025 Progress note [facility] Medical Records Department [address] [place] [address] Progress Note 12/09/24 1351 MR#: [id number] Acct: [id number] Name: GRACIE BANUELOS Rep #:[id number] : 1965 59 From: Anastacia Bonilla MD PCP: Dr. Annmarie Elkins MD Status:ADM I N Location: [place] [address] Subjective Subjective Patient seen and examined. She was lying comfortably in bed. She had no activecomplaints. He deniedany fever, any chills, any palpitations or dizziness, anynausea or vomiting. Review of systems otherwise negative. She is on 4 L of oxygen. She is down to 4 L from 12 L yesterday. Objective Data Objective Data Vital Signs: Vital Signs Temp Pulse Resp BP Pulse Ox O2 Del Method O2 Flow Rate 98.5 F 94 20 H 94/83 H 95 Nasal Cannula 4 12/09/24 10:31 12/09/24 10:31 12/09/24 10:31 12/09/24 10:31 12/09/24 10:31 12/09/24 10:31 12/09/24 10:31 FiO2 56 12/07/24 08:56 Oxygen Flow Rate (L/min) 4 Oxygen Delivery Method Nasal Cannula Weight: 132 lb 11.492 oz Body Mass Index (BMI) 23.5 Intake & Output: Intake and Output for Last 24 Hours 12/07/24 12/08/24 12/09/24 23:59 23:59 23:59 Intake Total 840 / 960 240 / 340 100 / 100 Output Total 1250 / 1650 400 / 950 950 / 950 Balance -410 / -690 -160 / -610 -850 / -850 Lab / Micro Data 12/09/24 06:59 12/09/24 06:59 Labs: Laboratory Results - last 24 hr 12/09/24 06:59: WBC 15.9 H, RBC 4.93, Hgb 13.4, Hct 42.4, MCV 86.0, MCH 27.2, MCHC 31.6 L, RDW Std Deviation 47.7 H, RDW Coeff of Min 15.1 H, Plt Count 296, MPV 10.8, Neut % (Auto) Not Reportable, Absolute Neuts (auto) 13.4 H, Absolute Lymphs (auto) 1.59, Total Counted 100, Neutrophils % (Manual) 84 H, Lymphocytes % (Manual) 10 L, Monocytes % (Manual) 6, Diff Path Review January, Platelet Estimate ADEQUATE, RBC Morphology NORM C+C, Sodium 135, Potassium 5.0, Chloride 96 L, Carbon Dioxide 27.3,Anion Gap 13, BUN 35 H, Creatinine 0.85, Estim Creat Clear Calc 57.49, Est GFR (MDRD) Non-Af 78, BUN/Creatinine Ratio 40.8 H, Hmuipxw012 H, Calcium 9.8 Micro: Microbiology 12/07/24 14:40 Mucosa - Nose SARS-CoV-2, Influenza & RSV (PCR) - Final 12/04/24 21:23 Mucosa - Nasopharyngeal Respiratory Panel (PCR) - Final 12/04/24 16:22 Mucosa - Nose SARS-CoV-2, Influenza & RSV (PCR) - Final Rhythm Strip Rhythm Strip: Sinus Tach Rate: 121 Ectopy: None Physical Exam Const alert, oriented x3 and no apparent distress General Appearance: cooperative and well developed HEENT normocephalic, head/scalp atraumatic, moist oral mucous membranes and oropharynxnormal Eyes PERRL and EOMs intact bilaterally Neck no lymphadenopathy and supple Lymph Lymphatic: no lymphadenopathy noted and no lymphedema noted Resp Resp Narrative: mildly diminished breath sounds bibasally, no wheezes or crackles. On 4L of oxygen. Cardio regular rate, regular rhythm, S1 normal heart sound, S2 normal heart sound and no murmurs GI normal to inspection, nondistended, normoactive bowel sounds, soft to palpation,non-tender and non-distended Extremity normal capillary refill, no clubbing, cyanosis or edema and no calf tenderness General Extremity: no tenderness to palpation of joints or extremities Skin General Skin Exam: no breakdown Neuro CN's II-XII intact bilaterally, no focal motor deficits and no sensory deficits noted Motor Exam: strength 5/5 throughout and general weakness Psych thought process normal, cooperative and affect normal Appearance: appropriate Assessment & Plan Assessment/Plan (1) COPD with acute exacerbation: (2) Acute hypoxic respiratory failure: PLAN: Plan #Acute on chronic hypoxic respiratory failure due to COPD exacerbation * On IV Solu-Medrol. On breathing treatment with bronchodilators. * Down to 4 L of oxygen from 12 L yesterday. * Titrate oxygen to maintain saturation above 90%. Breathing treatments bronchodilators. * Of note CTA of the chest on admission showed no evidence of PE. 2D echo showed normal left ventricular systolic function and EF of 70%. Respiratory panel was also negative. * #Chronic abdominal pain * On tramadol. Had a pancreatic block injection which does not seem to have helped. Will follow-up with pain management on outpatient basis. #Oropharyngeal dysphagia * Speech therapy on board. * Modified barium swallow on 12/08/2024 showed mild to moderate oropharyngeal dysphagia * On modified diet as per speech therapy. #Hypertension: On amlodipine and hydrochlorothiazide as well as lisinopril #Chronic anxiety: On Ativan as needed DVT prophylaxis: lovenox Charges/Coding Visit Charges Inpatient E&M: 79706 Subs Hosp L2 12/09/24 1633 Anastacia Bonilla MD Cosigner Signature (if applicable): CC: ~ Signed [facility]03-14-2025 Progress note Author Gonzalo Sebastian [facility] Note Date/Time December 09, 2024 11: 16am [facility] Medical Records Department [address] [place] [address] Progress Note - Salon [employer] 12/09/24 0809 MR#: [id number] Acct: [id number] Name: GRACIE BANUELOS Rep #:[id number] : 1965 59 From: Gonzalo Sebastian DO PCP: Dr. Annmarie Elkins MD Status:ADM I N Location: [place] [address] Assessment & Plan Assessment/Plan (1) COPD with acute exacerbation: (2) Acute hypoxic respiratory failure: PLAN: Plan RECOMMENDATIONS: 1. Continue to wean supplemental oxygen as tolerated. 2. Continue bronchodilators and steroids. The patient completed treatment course of azithromycin. 3. Dietary advancement per speech therapy. 4. Continue appropriate DVT prophylaxis. 5. Continue nicotine replacement therapy. 6. Aggressive medical management of underlying anxiety. 7. Perform walking oximetry study prior to consideration for discharge home. 8. Outpatient pulmonary follow-up after discharge is warranted. IMPRESSIONS: 1. Acute respiratory failure with hypoxemia and hypercapnia Unclear precipitating etiology. CTA chest showed no evidence for pulmonary embolism. There was no evidence of a focal infiltrate to suggest pneumonia. Echocardiogram revealed intact systolic function. Right ventricular systolic pressure was unable to be estimated. Respiratory viral panel was negative. The patient does have evidence of end-stage lung disease based upon pulmonary function studies completed last month. It is certainly plausible that the patient's anxiety may have also contributed to her acute decompensation with increasing respiratory rate leading to worsening air trapping. In addition, there are concerns that the patient may be aspirating with p.o. intake. Therefore, the patient completed a modified barium swallow with mild to moderateoropharyngeal dysphagia noted. Speech therapy is following with dietary advancement per recommendations. In the interim, continue to wean supplemental oxygen to maintain saturations at or above 90%. The patient does have a historyof a prior hospitalization in October 2022 in the setting of a panic attack with generalized anxiety disorder leading to acute decompensation in her respiratory status. Recommend performing a 6-minute walk test prior to consideration for discharge home. The patient should follow-up in the pulmonarymedicine office within 2 weeks of discharge. 2. Chronic tobacco dependency/bipolar disorder/depression/anxiety/chronic pancreatitis Complicates care, management, recovery and prognosis. Continue home medicationsas indicated. This note was generated with Helidyne dictation software. It may contain incorrectwords, spelling, and punctuation that were not noted in checking the note beforesigning. Subjective Subjective The patient was seen and examined at the bedside this morning. Events from the last 24 hours have been reviewed. The patient is currently afebrile, hemodynamically stable and maintaining appropriate oxygen saturations on 4 L/minvia nasal cannula. The patient completed the modified barium swallow yesterday with mild to moderate oropharyngeal dysphagia noted. Speech therapy subsequently recommended GI consultation. The patient remains stable from a clinical perspective on scheduled bronchodilators and steroids. Objective Data Objective Data The patient's most recent lab work, culture data and imaging studies have all been personally reviewed. COVID, influenza and RSV PCR's were negative. Vital Signs: Vital Signs Temp Pulse Resp BP Pulse Ox O2 Del Method O2 Flow Rate 97.2 F L 84 20 H 149/76 H 92 Nasal Cannula 4 12/09/24 03:30 12/09/24 05:52 12/09/24 05:52 12/09/24 03:30 12/09/24 05:52 12/09/24 05:52 12/09/24 05:52 FiO2 56 12/07/24 08:56 Oxygen Flow Rate (L/min) 4 Oxygen Delivery Method Nasal Cannula Weight: 134 lb 11.239 oz Body Mass Index (BMI) 23.8 Intake & Output: Intake and Output for Last 24 Hours 12/07/24 12/08/24 12/09/24 23:59 23:59 23:59 Intake Total 840 / 960 240 / 340 100 / 100 Output Total 1250 / 1650 400 / 950 950 / 950 Balance -410 / -690 -160 / -610 -850 / -850 Lab / Micro Data Attestation: I reviewed the patient's lab results. 12/09/24 06:59 12/09/24 06:59 Labs: Laboratory Results - last 24 hr 12/09/24 06:59: WBC 15.9 H, RBC 4.93, Hgb 13.4, Hct 42.4, MCV 86.0, MCH 27.2, MCHC 31.6 L, RDW Std Deviation 47.7 H, RDW Coeff of Min 15.1 H, Plt Count 296, MPV 10.8, Neut % (Auto) Not Reportable Micro: Microbiology 12/07/24 14:40 Mucosa - Nose SARS-CoV-2, Influenza & RSV (PCR) - Final 12/04/24 21:23 Mucosa - Nasopharyngeal Respiratory Panel (PCR) - Final 12/04/24 16:22 Mucosa - Nose SARS-CoV-2, Influenza & RSV (PCR) - Final Radiography Diagnostic Testing: Radiology Impression Echocardiogram 12/05/24 13:19 Interpretation Summary The estimated ejection fraction is 70 %. Unable to assess diastolic dysfunction. Trivial mitral valve insufficiency. Ordering Physician: Gonzalo Sebastian Referring Physician: ANNMARIE ELKINS Performed By: Grazyna Lazaro RCS Rhythm Strip Rhythm Strip: Sinus Tach Rate: 121 Ectopy: None Physical Exam Const alert, oriented x3 and no apparent distress General Appearance: cooperative HEENT normocephalic and head/scalp atraumatic Eyes PERRL, EOMs intact bilaterally and conjunctivae normal Neck supple General: trachea midline Chest inspection of chest normal Resp normal respiratory effort Auscultation: wheezes and diminished lung sounds Cardio regular rate and regular rhythm GI normal to inspection, nondistended, normoactive bowel sounds Extremity no clubbing, cyanosis or edema Skin no rashes or lesions noted Neuro CN's II-XII intact bilaterally, moves all extremities and no focal motor deficits Psych Mood & Affect: anxious Charges/Coding Visit Charges Inpatient E&M: 40836 Subs Hosp L2 12/09/24 1116 <Electronically signed by Gonzalo Sebastian DO> Cosigner Signature (if applicable): CC: ~ Signed [facility] Work Phone: [phone]) [phone] Progress note [facility] Medical Records Department [address] [place] [address] Progress Note - Salon Leader 12/09/24 0809 MR#: [id number] Acct: [id number] Name: GRACIE BANUELOS Rep #:[id number] : 1965 59 From: Gonzalo Sebastian DO PCP: Dr. Annmarie Elkins MD Status:ADM I N Location: [place] [address] Assessment & Plan Assessment/Plan (1) COPD with acute exacerbation: (2) Acute hypoxic respiratory failure: PLAN: Plan RECOMMENDATIONS: 1. Continue to wean supplemental oxygen as tolerated. 2. Continue bronchodilators and steroids. The patient completed treatment course of azithromycin. 3. Dietary advancement per speech therapy. 4. Continue appropriate DVT prophylaxis. 5. Continue nicotine replacement therapy. 6. Aggressive medical management of underlying anxiety. 7. Perform walking oximetry study prior to consideration for discharge home. 8. Outpatient pulmonary follow-up after discharge is warranted. IMPRESSIONS: 1. Acute respiratory failure with hypoxemia and hypercapnia Unclear precipitating etiology. CTA chest showed no evidence for pulmonary embolism. There was no evidence of a focal infiltrate to suggest pneumonia. Echocardiogram revealed intact systolic function. Right ventricular systolic pressure was unable to be estimated. Respiratory viral panel was negative. The patient does have evidence of end-stage lung disease based upon pulmonary function studies completed last month. It is certainly plausible that the patient's anxiety may have also contributed to her acute decompensation with increasing respiratory rate leading to worsening air trapping. In addition, there are concerns that the patient may be aspirating with p.o. intake. Therefore, the patient completed a modified barium swallow with mild to moderateoropharyngeal dysphagia noted. Speech therapy is following with dietary advancement per recommendations. In the interim, continue to wean supplemental oxygen to maintain saturations at or above 90%. The patient does have a historyof a prior hospitalization in October 2022 in the setting of a panic attack with generalized anxiety disorder leading to acute decompensation in her respiratory status. Recommend performing a 6-minute walk test prior to consideration for discharge home. The patient should follow-up in the pulmonarymedicine office within 2 weeks of discharge. 2. Chronic tobacco dependency/bipolar disorder/depression/anxiety/chronic pancreatitis Complicates care, management, recovery and prognosis. Continue home medicationsas indicated. This note was generated with Helidyne dictation software. It may contain incorrectwords, spelling, and punctuation that were not noted in checking the note beforesigning. Subjective Subjective The patient was seen and examined at the bedside this morning. Events from the last 24 hours have been reviewed. The patient is currently afebrile, hemodynamically stable and maintaining appropriate oxygen saturations on 4 L/minvia nasal cannula. The patient completed the modified barium swallow yes terday with mild to moderate oropharyngeal dysphagia noted. Speech therapy subsequently recommendedGI consultation. The patient remains stable from a clinical perspective on scheduled bronchodilators and steroids. Objective Data Objective Data The patient's most recent lab work, culture data and imaging studies have all been personally reviewed. COVID, influenza and RSV PCR's were negative. Vital Signs: Vital Signs Temp Pulse Resp BP Pulse Ox O2 Del Method O2 Flow Rate 97.2 F L 84 20 H 149/76 H 92 Nasal Cannula 4 12/09/24 03:30 12/09/24 05:52 12/09/24 05:52 12/09/24 03:30 12/09/24 05:52 12/09/24 05:52 12/09/24 05:52 FiO2 56 12/07/24 08:56 Oxygen Flow Rate (L/min) 4 Oxygen Delivery Method Nasal Cannula Weight: 134 lb 11.239 oz Body Mass Index (BMI) 23.8 Intake & Output: Intake and Output for Last 24 Hours 12/07/24 12/08/24 12/09/24 23:59 23:59 23:59 Intake Total 840 / 960 240 / 340 100 / 100 Output Total 1250 / 1650 400 / 950 950 / 950 Balance -410 / -690 -160 / -610 -850 / -850 Lab / Micro Data Attestation: I reviewed the patient's lab results. 12/09/24 06:59 12/09/24 06:59 Labs: Laboratory Results - last 24 hr 12/09/24 06:59: WBC 15.9 H, RBC 4.93, Hgb 13.4, Hct 42.4, MCV 86.0, MCH 27.2, MCHC 31.6 L, RDW Std Deviation 47.7 H, RDW Coeff of Min 15.1 H, Plt Count 296, MPV 10.8, Neut % (Auto) Not Reportable Micro: Microbiology 12/07/24 14:40 Mucosa - Nose SARS-CoV-2, Influenza & RSV (PCR) - Final 12/04/24 21:23 Mucosa - Nasopharyngeal Respiratory Panel (PCR) - Final 12/04/24 16:22 Mucosa - Nose SARS-CoV-2, Influenza & RSV (PCR) - Final Radiography Diagnostic Testing: Radiology Impression Echocardiogram 12/05/24 13:19 Interpretation Summary The estimated ejection fraction is 70 %. Unable to assess diastolic dysfunction. Trivial mitral valve insufficiency. Ordering Physician: Gonzalo Sebastian Referring Physician: ANNMARIE ELKINS Performed By: Grazyna Lazaro RCS Rhythm Strip Rhythm Strip: Sinus Tach Rate: 121 Ectopy: None Physical Exam Const alert, oriented x3 and no apparent distress General Appearance: cooperative HEENT normocephalic and head/scalp atraumatic Eyes PERRL, EOMs intact bilaterally and conjunctivae normal Neck supple General: trachea midline Chest inspection of chest normal Resp normal respiratory effort Auscultation: wheezes and diminished lung sounds Cardio regular rate and regular rhythm GI normal to inspection, nondistended, normoactive bowel sounds Extremity no clubbing, cyanosis or edema Skin no rashes or lesions noted Neuro CN's II-XII intact bilaterally, moves all extremities and no focal motor deficits Psych Mood & Affect: anxious Charges/Coding Visit Charges Inpatient E&M: 39897 Subs Hosp L2 12/09/24 1116 Cosigner Signature (if applicable): CC: ~ Signed [facility]03-13-2025 Progress note Author Yrn Kahn [facility] Note Date/Time December 08, 2024 4:2 3pm [facility] Medical Records Department [address] [place] [address] Progress Note - Hospitalist 12/08/24 1620 MR#: [id number] Acct: [id number] Name: GRACIE BANUELOS Rep #:[id number] : 1965 59 From: Yrn Kahn DO PCP: Dr. Annmarie Elkins MD Status:ADM I N Location: [place] [address] Reason for Visit Reason for Visit: Diagnoses Stricture of artery (12/04/24) Chronic obstructive pulmonary disease with (acute) exacerbation (12/04/24) Acute respiratory failure with hypoxia (12/04/24) Solitary pulmonary nodule (12/04/24) Subjective Subjective Patient was seen and examined today, she is currently on 12 L of high flow oxygen. Patient at times was confused this morning when I was talking with her,she was seen by speech therapy today and they recommended a GI consult-due to the patient's high flow oxygen however I did not feel that gastroenterology could perform an EGD on the patient or add anything to her care at this time. Idiscussed this with speech therapy, they will try to supplement her diet with liquids-patient had a Haley doom cookie stuck in her esophagus during her cookieswallow test today. This ultimately dislodged. Objective Data Objective Data Vital Signs: Vital Signs Temp Pulse Resp BP Pulse Ox O2 Del Method O2 Flow Rate 97.5 F L 75 20 H 102/76 93 High Flow 12 12/08/24 11:09 12/08/24 15:00 12/08/24 15:00 12/08/24 11:09 12/08/24 14:49 12/08/24 14:49 12/08/24 14:49 FiO2 56 12/07/24 08:56 Oxygen Flow Rate (L/min) 12 Oxygen Delivery Method High Flow Weight: 61.1 kg Body Mass Index (BMI) 23.8 Intake & Output: Intake and Output for Last 24 Hours 12/06/24 12/07/24 12/08/24 23:59 23:59 23:59 Intake Total 480 / 600 840 / 960 240 / 240 Output Total 1250 / 1650 400 / 400 Balance 480 / 600 -410 / -690 -160 / -160 Lab / Micro Data 12/06/24 07:02 12/06/24 07:02 Micro: Microbiology 12/07/24 14:40 Mucosa - Nose SARS-CoV-2, Influenza & RSV (PCR) - Final 12/04/24 21:23 Mucosa - Nasopharyngeal Respiratory Panel (PCR) - Final 12/04/24 16:22 Mucosa - Nose SARS-CoV-2, Influenza & RSV (PCR) - Final Rhythm Strip Rhythm Strip: Sinus Tach Rate: 121 Ectopy: None Physical Exam Narrative alert, oriented x3 and no apparent distress Constitutional Narrative: Patient is currently on Airvo, she is alert and oriented x 3 General Appearance: cooperative, well kempt and well developed Orientation / Consciousness: awake, oriented to person, oriented to place and oriented to time HEENT normocephalic, head/scalp atraumatic and moist oral mucous membranes Eyes PERRL, EOMs intact bilaterally and conjunctivae normal Neck supple, no JVD, thyroid normal and no carotid bruits General: trachea midline Resp normal respiratory effort, no retractions and no use of accessory muscles Resp Narrative: Breath sounds are diminished bilaterally Auscultation: Negative for rales, rhonchi or wheezes Cardio regular rate, regular rhythm, S1 normal heart sound, S2 normal heart sound, no murmurs, no rub and no gallops GI normal to inspection, nondistended, normoactive bowel sounds, soft to palpation,non-tender and non-distended Extremity no clubbing, cyanosis or edema Skin no rashes or lesions noted General Skin Exam: no breakdown Neuro oriented x3, CN's II-XII intact bilaterally, moves all extremities, no focal motor deficits and no sensory deficits noted Sensorium / Orientation: awake and alert Speech: speech normal Psych affect normal Assessment & Plan Assessment/Plan (1) COPD with acute exacerbation: PLAN: Plan 1. Acute on chronic respiratory failure with hypoxemia and hypercapnia-continueaerosol treatments, IV corticosteroids and empiric antibiotics. Pulse ox will be monitored, prognosis is guarded at this point, patient is a full code. #2 end-stage COPD-complicates care, management, recovery, and prognosis, patientwill remain on current treatment including aerosols, empiric antibiotics, and IVcorticosteroids. #3 chronic abdominal pain-patient had a pancreatic block injection done recentlywhich did not help, I have elected to place her on tramadol for pain #4 chronic anxiety-patient is on low-dose Ativan twice daily #5 oropharyngeal dysphagia-etiology unclear, speech therapy is working with the patient, patient's oxygen requirement is too high for the patient to undergo an EGD without intubating her. Total clinical time spent by myself addressing the patient's medical issues, reviewing all of her data, and collaborating with patient's care team: 35 minutes Charges/Coding Visit Charges Inpatient E&M: 83881 Subs Hosp L2 12/08/24 1623 <Electronically signed by Yrn Kahn DO> Cosigner Signature (if applicable): CC: ~ Signed [facility] Work Phone: [phone] 365-993603-13-2025 Progress note [facility] Medical Records Department [address] [place] [address] Progress Note - Hospitalist 12/08/24 1620 MR#: [id number] Acct: [id number] Name: GRACIE BANUELOS Rep #:[id number] : 1965 59 From: Yrn Kahn DO PCP: Dr. Annmarie Elkins MD Status:ADM I N Location: [place] [address] Reason for Visit Reason for Visit: Diagnoses Stricture of artery (12/04/24) Chronic obstructive pulmonary disease with (acute) exacerbation (12/04/24) Acute respiratory failure with hypoxia (12/04/24) Solitary pulmonary nodule (12/04/24) Subjective Subjective Patient was seen and examined today, she is currently on 12 L of high flow oxygen. Patient at timeswas confused this morning when I was talking with her,she was seen by speech therapy today and theyrecommended a GI consult-due to the patient's high flow oxygen however I did not feel that gastroenterology could perform an EGD on the patient or add anything to her care at this time. Idiscussed this with speech therapy, they will try to supplement her diet with liquids-patient had a Haley doom cookie stuck in her esophagus during her cookieswallow test today. This ultimately dislodged. Objective Data Objective Data Vital Signs: Vital Signs Temp Pulse Resp BP Pulse Ox O2 Del Method O2 Flow Rate 97.5 F L 75 20 H 102/76 93 High Flow 12 12/08/24 11:09 12/08/24 15:00 12/08/24 15:00 12/08/24 11:09 12/08/24 14:49 12/08/24 14:49 12/08/24 14:49 FiO2 56 12/07/24 08:56 Oxygen Flow Rate (L/min) 12 Oxygen Delivery Method High Flow Weight: 61.1 kg Body Mass Index (BMI) 23.8 Intake & Output: Intake and Output for Last 24 Hours 12/06/24 12/07/24 12/08/24 23:59 23:59 23:59 Intake Total 480 / 600 840 / 960 240 / 240 Output Total 1250 / 1650 400 / 400 Balance 480 / 600 -410 / -690 -160 / -160 Lab / Micro Data 12/06/24 07:02 12/06/24 07:02 Micro: Microbiology 12/07/24 14:40 Mucosa - Nose SARS-CoV-2, Influenza & RSV (PCR) - Final 12/04/24 21:23 Mucosa - Nasopharyngeal Respiratory Panel (PCR) - Final 12/04/24 16:22 Mucosa - Nose SARS-CoV-2, Influenza & RSV (PCR) - Final Rhythm Strip Rhythm Strip: Sinus Tach Rate: 121 Ectopy: None Physical Exam Narrative alert, oriented x3 and no apparent distress Constitutional Narrative: Patient is currently on Airvo, she is alert and oriented x 3 General Appearance: cooperative, well kempt and well developed Orientation / Consciousness: awake, oriented to person, oriented to place and oriented to time HEENT normocephalic, head/scalp atraumatic and moist oral mucous membranes Eyes PERRL, EOMs intact bilaterally and conjunctivae normal Neck supple, no JVD, thyroid normal and no carotid bruits General: trachea midline Resp normal respiratory effort, no retractions and no use of accessory muscles Resp Narrative: Breath sounds are diminished bilaterally Auscultation: Negative for rales, rhonchi or wheezes Cardio regular rate, regular rhythm, S1 normal heart sound, S2 normal heart sound, no murmurs, no rub and no gallops GI normal to inspection, nondistended, normoactive bowel sounds, soft to palpation,non-tender and non-distended Extremity no clubbing, cyanosis or edema Skin no rashes or lesions noted General Skin Exam: no breakdown Neuro oriented x3, CN's II-XII intact bilaterally, moves all extremities, no focal motor deficits and no sensory deficits noted Sensorium / Orientation: awake and alert Speech: speech normal Psych affect normal Assessment & Plan Assessment/Plan (1) COPD with acute exacerbation: PLAN: Plan 1. Acute on chronic respiratory failure with hypoxemia and hypercapnia- continueaerosol treatments, IV corticosteroids and empiric antibiotics. Pulse ox will be monitored, prognosis is guarded at thispoint, patient is a full code. #2 end-stage COPD-complicates care, management, recovery, and prognosis, patientwill remain on current treatment including aerosols, empiric antibiotics, and IVcorticosteroids. #3 chronic abdominal pain-patient had a pancreatic block injection done recentlywhich did not help,I have elected to place her on tramadol for pain #4 chronic anxiety-patient is on low-dose Ativan twice daily #5 oropharyngeal dysphagia-etiology unclear, speech therapy is working with the patient, patient's oxygen requirement is too high for the patient to undergo an EGD without intubating her. Total clinical time spent by myself addressing the patient's medical issues, reviewing all of her data, and collaborating with patient's care team: 35 minutes Charges/Coding Visit Charges Inpatient E&M: 85786 [facility] Hosp L2 12/08/24 1628 Cosigner Signature (if applicable): CC: ~ Signed [facility]03-13-2025 Procedure note [facility] Speech Pathology [address] [place] [address] Modified Barium Swallow Study MR#: [id number] Acct: [id number] Name: GRACIE BANUELOS Rep #:[id number] : 1965 59 From: Brianna Ramos, [facility]-SOCIAL WORKER Modified Barium Swallow Patient Information Study Date: 12/08/24 Study Time: 13:00 Direct Billable Minutes: 71 Total Minutes procedure & reportin Diagnosis: Acute hypoxic respiratory failure J96.01 Referring Physician: Yrn Kahn Reason for Referral: Assess swallow function, assess risk for aspiration, and determine recommendations for least restrictive diet textures and compensatory strategies to improve safety of swallow. Medical History: Pt presented to the ED at [facility] on 12/04/2024 with the chief complaint of SOB. PMHx is significant for Pancreatic stones, HLD (hyperlipidemia), History of alcohol abuse, Pneumonia, Acute on chronic hypoxic respiratory failure, Stage 3 severe COPD by GOLD classification, Asthma, COPD, Arthritis, Historyof back problems, Anxiety and depression, Chronic pancreatitis, HPV infection, Anemia, Tobacco abuse, GERD, and Benign hypertension. Admitted for management of Acute hypoxic and hypercapnic respiratory failure secondary to acute exacerbation of COPD. Pt was made NPO and ST order received for CBSE d/t reported instance of choking on eggs w/ O2 sats dropping to the 70s. BSE 12/08/2024 recommended Easy to Chew textures / Thin liquids w/ recommendation for MBSS today to further assess risk for aspiration. Current Diet Ordered: Easy to Chew textures / Thin liquids Mental Status: Impaired Respiratory Status: Oxygenating on 4L/M nasal cannula (15L via nasal cannula) Penetration-Aspiration Scale Penetration-Aspiration Scale: OBJECTIVE ASSESSMENT OF SWALLOW FUNCTION (QUANTITATIVE ? PER TRIAL): PENETRATION / ASPIRATION SCALE (OCHOA): 1 = does not enter airway 2 = enters airway/above vocal folds/ejected 3 = enters airway/above vocal folds/not ejected 4 = enters airway/contacts vocal folds/ejected 5 = enters airway/contacts vocal folds/not ejected 6 = enters airway/below vocal folds/ejected 7 = enters airway/below vocal folds/not ejected despite effort 8 = enters airway/below vocal folds/no effort VIDEOFLOROSCOPIC SCALE SCORE (OCHOA): Grade I = aspiration of material that has penetrated into the laryngeal vestibule, intact cough reflex Grade II = aspiration < 10 % of the bolus, intact cough reflex Grade III = aspiration of < 10 % of the bolus, reduced cough reflex or aspiration of > 10 % of the bolus, intact cough reflex Grade IV = aspiration of > 10 % of the bolus, reduced cough reflex Penetration-Aspiration Scale Score Thin Liquid via teaspoon: Result: 2= enter airway/above vocal folds/ejected Thin Liquid via teaspoon Trial 2: Result: 2= enter airway/above vocal folds/ejected Thin Liquid via small single sip: cup: Result: 3= enters airways/above vocal folds/not ejected [place] Thick Liquid via small single sip: cup: Result: 2= enter airway/above vocal folds/ejected Pudding via teaspoon: Result: 1= does not enter airway Comment: Trace post prandial laryngeal penetration of previous trial. Esophageal screen - Complete and timely clearance. 1/2 Cookie: Result: 1= does not enter airway Comment: Esophageal screen - Retention throughout the esophagus. Thin Liquid via sequential sips:straw: Result: 2= enter airway/above vocal folds/ejected Comment: Esophageal screen - 3 liquid washes required to clear esophageal retention of cookie. Oral Phase Labial Seal: No Labial Escape Tongue Control During Bolus Hold: Posterior escape of greater than half of bolus Bolus Preparation/Mastication: Disorganized chewing/mashing with solid pieces ofbolus unchewed Bolus Transport/Lingual Motion: Repetitive/disorganized tongue motion Oral Residue: Residue collection on oral structures Pharyngeal Phase Initiation of Pharyngeal Swallow: Bolus head in pyriforms Soft Palate Elevation: Trace column of contrast/air between soft palate and pharyngeal wall Laryngeal Elevation: Partial superior movement thyroid cart/partial apprx aryt- epig petiole Anterior Hyoid Excursion: Partial anterior movement Epiglottic Movement: Complete inversion Laryngeal Vestibule Closure at Height of Swallow: Incomplete; narrow column of air/contrast in laryngeal vestibule Pharyngeal Stripping Wave: Present - diminished Pharyngoesophageal Segment Opening: Parital distension and partial duration; parital obstruction offlow Tongue Base Retraction: Narrow column of contrast between tongue base & post. pharyngeal wall Pharyngeal Residue: Collection of residue within or on pharyngeal structures Esophageal Phase Esophageal Clearance: Esophageal retention Diagnosis/Impression Diagnosis: Mild-moderate oropharyngeal dysphagia R13.12; Esophageal dysphagia R13.14 Impression: The oral phase is marked by... -Decreased bolus control w/ premature posterior loss of >1/2 of thin liquids to the pyriforms prior to swallow onset. -Lingual pumping for A-P transport. -Decreased mastication with small pieces of cookie un-chewed. The pharyngeal phase is marked by... -Delayed swallow onset. -Decreased pharyngeal motility due to decreased TB retraction and pharyngeal stripping wave resulting in mild pharyngeal residue. -Decreased airway closure due to decreased anterior hyoid excursion and laryngeal elevation w/ laryngeal penetration of thin liquids w/o complete ejection 2X. No aspiration observed. The esophageal phase is marked by... -Esophageal retention of cookie, which required 3 liquid washes to fully clear. Recommendations Diet: Soft and Bite Sized Textures and Thin Liquids Compensatory Strategies: Small Bites, Small Sips, Slow Rate, Alternate bites/solids and sips/liquids (1:1), Sitting upright and Remain sitting upright for 30 minutes after PO intake Supervision: 1:1 Direct Supervision (staff supervision, all food/meals) Recommend Repeat Modified Barium Swallow: TBD Need for Skilled Speech Therapy Services: Yes Comment: -Train the patient in use of strategies to decrease risk for aspiration and reflux aspiration. -Ongoing assessment of diet tolerance of recommended textures. If poor diet tolerance or worsening respiratory status, consider downgrade to puree textures / thin liquids. -Train the patient in oropharyngeal exercise program to improve bolus control, swallow onset, airway closure, and pharyngeal motility (lingual resistance, [place], Rosa, effortful). Recommended Referrals: GI Consult Education Completed: 1. Described result of evaluation. and 2. Pt understands evaluation & agrees with goals and treatment plan. Status Active ST Patient: Active Contact Information [facility] Speech Therapy:: Brianna Up M.A. CCC-SOCIAL WORKER? Speech-Language Pathologist?? [facility] [address] [place] [address]? [email or web address]?? [phone] 12/08/24 1525 Yulissa CCC-SOCIAL WORKER> Date/Time Brianna Up M.A. CCC-SOCIAL WORKER Co-Signature Required for all Medicare patients Date/Time Co-Signature CC: ~ [facility]03-13-2025 Progress note Author Gonzalo Sebastian [facility] Note Date/Time December 08, 2024 10: 27am [facility] Medical Records Department [address] [place] [address] Progress Note - Salon Leader 12/08/24 0944 MR#: [id number] Acct: [id number] Name: GRACIE BANUELOS Rep #:[id number] : 1965 59 From: Gonzalo Sebastian DO PCP: Dr. Annmarie Elkins MD Status:ADM I N Location: [place] [address] Assessment & Plan Assessment/Plan (1) COPD with acute exacerbation: (2) Acute hypoxic respiratory failure: PLAN: Plan RECOMMENDATIONS: 1. Continue to wean supplemental oxygen as tolerated. 2. Continue empiric antibiotics, bronchodilators and steroids. 3. Tentative plans for modified barium swallow today per speech therapy. 4. Continue appropriate DVT prophylaxis. 5. Continue nicotine replacement therapy. 6. Aggressive medical management of underlying anxiety. IMPRESSIONS: 1. Acute respiratory failure with hypoxemia and hypercapnia Unclear precipitating etiology. CTA chest showed no evidence for pulmonary embolism. There was no evidence of a focal infiltrate to suggest pneumonia. Echocardiogram revealed intact systolic function. Right ventricular systolic pressure was unable to be estimated. Respiratory viral panel was negative. The patient does have evidence of end-stage lung disease based upon pulmonary function studies completed last month. It is certainly plausible that the patient's anxiety may have also contributed to her acute decompensation with increasing respiratory rate leading to worsening air trapping. In addition, there are concerns that the patient may be aspirating with p.o. intake. Therefore, the patient has been made n.p.o., pending completion of modified barium swallow. In the interim, continue to wean supplemental oxygen to maintain saturations at or above 90%. The patient does have a history of a prior hospitalization in October 2022 in the setting of a panic attack with generalized anxiety disorder leading to acute decompensation in her respiratory status. 2. Chronic tobacco dependency/bipolar disorder/depression/anxiety/chronic pancreatitis Complicates care, management, recovery and prognosis. Continue home medicationsas indicated. This note was generated with [employer] dictation software. It may contain incorrectwords, spelling, and punctuation that were not noted in checking the note beforesigning. Subjective Subjective The patient was seen and examined at the bedside this morning. Events from the last 24 hours have been reviewed. The patient is currently afebrile, hemodynamically stable and maintaining appropriate oxygen saturations on 10 L/min via nasal cannula. The patient was seen by speech therapy yesterday with tentative plans for modified barium swallow today. Objective Data Objective Data The patient's most recent lab work, culture data and imaging studies have all been personally reviewed. COVID, influenza and RSV PCR's were negative. Vital Signs: Vital Signs Temp Pulse Resp BP Pulse Ox O2 Del Method O2 Flow Rate 97.8 F 79 20 H 106/59 L 92 High Flow 13 12/08/24 04:47 12/08/24 07:16 12/08/24 07:16 12/08/24 04:47 12/08/24 07:52 12/08/24 07:52 12/08/24 07:52 FiO2 56 12/07/24 08:56 Oxygen Flow Rate (L/min) 13 Oxygen Delivery Method High Flow Weight: 134 lb 11.239 oz Body Mass Index (BMI) 23.8 Intake & Output: Intake and Output for Last 24 Hours 12/06/24 12/07/24 12/08/24 23:59 23:59 23:59 Intake Total 480 / 600 840 / 960 240 / 240 Output Total 1250 / 1650 400 / 400 Balance 480 / 600 -410 / -690 -160 / -160 Lab / Micro Data Attestation: I reviewed the patient's lab results. 12/06/24 07:02 12/06/24 07:02 Labs: Laboratory Results - last 24 hr 12/07/24 10:55: NT pro BNP II 3318 H Micro: Microbiology 12/07/24 14:40 Mucosa - Nose SARS-CoV-2, Influenza & RSV (PCR) - Final 12/04/24 21:23 Mucosa - Nasopharyngeal Respiratory Panel (PCR) - Final 12/04/24 16:22 Mucosa - Nose SARS-CoV-2, Influenza & RSV (PCR) - Final Radiography Diagnostic Testing: Radiology Impression Echocardiogram 12/05/24 13:19 Interpretation Summary The estimated ejection fraction is 70 %. Unable to assess diastolic dysfunction. Trivial mitral valve insufficiency. Ordering Physician: Gonzalo Sebastian Referring Physician: ANNMARIE ELKINS Performed By: Grazyna Lazaro RCS Rhythm Strip Rhythm Strip: Sinus Tach Rate: 121 Ectopy: None Physical Exam Const alert, oriented x3 and no apparent distress General Appearance: cooperative HEENT normocephalic and head/scalp atraumatic Eyes PERRL, EOMs intact bilaterally and conjunctivae normal Neck supple General: trachea midline Chest inspection of chest normal Resp normal respiratory effort Auscultation: wheezes and diminished lung sounds Cardio regular rate and regular rhythm GI normal to inspection, nondistended, normoactive bowel sounds Extremity no clubbing, cyanosis or edema Skin no rashes or lesions noted Neuro CN's II-XII intact bilaterally, moves all extremities and no focal motor deficits Psych Mood & Affect: anxious Charges/Coding Visit Charges Inpatient E&M: 79795 Subs Hosp L2 12/08/24 1027 <Electronically signed by Gonzalo Sebastian DO> Cosigner Signature (if applicable): CC: ~ Signed [facility] Work Phone: [phone]) 945-202203-13-2025 Progress note [facility] Medical Records Department [address] [place] [address] Progress Note - Salon Leader 12/08/24 0944 MR#: [id number] Acct: [id number] Name: GRACIE BANUELOS Rep #:[id number] : 1965 59 From: Gonzalo Sebastian DO PCP: Dr. Annmarie Elkins MD Status:ADM I N Location: [place] [address] Assessment & Plan Assessment/Plan (1) COPD with acute exacerbation: (2) Acute hypoxic respiratory failure: PLAN: Plan RECOMMENDATIONS: 1. Continue to wean supplemental oxygen as tolerated. 2. Continue empiric antibiotics, bronchodilators and steroids. 3. Tentative plans for modified barium swallow today per speech therapy. 4. Continue appropriate DVT prophylaxis. 5. Continue nicotine replacement therapy. 6. Aggressive medical management of underlying anxiety. IMPRESSIONS: 1. Acute respiratory failure with hypoxemia and hypercapnia Unclear precipitating etiology. CTA chest showed no evidence for pulmonary embolism. There was no evidence of a focal infiltrate to suggest pneumonia. Echocardiogram revealed intact systolic function. Right ventricular systolic pressure was unable to be estimated. Respiratory viral panel was negative. The patient does have evidence of end-stage lung disease based upon pulmonary function studies completed last month. It is certainly plausible that the patient's anxiety may have also contributed to her acute decompensation with increasing respiratory rate leading to worsening air trapping. In addition, there are concerns that the patient may be aspirating with p.o. intake. Therefore, the patient has been made n.p.o., pending completion of modified barium swallow. In the interim, continue towean supplemental oxygen to maintain saturations at or above 90%. The patient does have a history of a prior hospitalization in October 2022 in the setting of a panic attack with generalized anxietydisorder leading to acute decompensation in her respiratory status. 2. Chronic tobacco dependency/bipolar disorder/depression/anxiety/chronic pancreatitis Complicates care, management, recovery and prognosis. Continue home medicationsas indicated. This note was generated with [employer] software. It may contain incorrectwords, spelling, and punctuation that were not noted in checking the note beforesigning. Subjective Subjective The patient was seen and examined at the bedside this morning. Events from the last 24 hours have been reviewed. The patient is currently afebrile, hemodynamically stable and maintaining appropriate oxygen saturations on 10 L/min via nasal cannula. The patient was seen by speech therapy yesterday with tentative plans for modified barium swallow today. Objective Data Objective Data The patient's most recent lab work, culture data and imaging studies have all been personally reviewed. COVID, influenza and RSV PCR's were negative. Vital Signs: Vital Signs Temp Pulse Resp BP Pulse Ox O2 Del Method O2 Flow Rate 97.8 F 79 20 H 106/59 L 92 High Flow 13 12/08/24 04:47 12/08/24 07:16 12/08/24 07:16 12/08/24 04:47 12/08/24 07:52 12/08/24 07:52 12/08/24 07:52 FiO2 56 12/07/24 08:56 Oxygen Flow Rate (L/min) 13 Oxygen Delivery Method High Flow Weight: 134 lb 11.239 oz Body Mass Index (BMI) 23.8 Intake & Output: Intake and Output for Last 24 Hours 12/06/24 12/07/24 12/08/24 23:59 23:59 23:59 Intake Total 480 / 600 840 / 960 240 / 240 Output Total 1250 / 1650 400 / 400 Balance 480 / 600 -410 / -690 -160 / -160 Lab / Micro Data Attestation: I reviewed the patient's lab results. 12/06/24 07:02 12/06/24 07:02 Labs: Laboratory Results - last 24 hr 12/07/24 10:55: NT pro BNP II 3318 H Micro: Microbiology 12/07/24 14:40 Mucosa - Nose SARS-CoV-2, Influenza & RSV (PCR) - Final 12/04/24 21:23 Mucosa - Nasopharyngeal Respiratory Panel (PCR) - Final 12/04/24 16:22 Mucosa - Nose SARS-CoV-2, Influenza & RSV (PCR) - Final Radiography Diagnostic Testing: Radiology Impression Echocardiogram 12/05/24 13:19 Interpretation Summary The estimated ejection fraction is 70 %. Unable to assess diastolic dysfunction. Trivial mitral valve insufficiency. Ordering Physician: Gonzalo Sebastian Referring Physician: ANNMARIE ELKINS Performed By: Grazyna Lazaro RCS Rhythm Strip Rhythm Strip: Sinus Tach Rate: 121 Ectopy: None Physical Exam Const alert, oriented x3 and no apparent distress General Appearance: cooperative HEENT normocephalic and head/scalp atraumatic Eyes PERRL, EOMs intact bilaterally and conjunctivae normal Neck supple General: trachea midline Chest inspection of chest normal Resp normal respiratory effort Auscultation: wheezes and diminished lung sounds Cardio regular rate and regular rhythm GI normal to inspection, nondistended, normoactive bowel sounds Extremity no clubbing, cyanosis or edema Skin no rashes or lesions noted Neuro CN's II-XII intact bilaterally, moves all extremities and no focal motor deficits Psych Mood & Affect: anxious Charges/Coding Visit Charges Inpatient E&M: 57498 Subs Hosp L2 12/08/24 1027 Cosigner Signature (if applicable): CC: ~ Signed [facility]03-12-2025 Progress note Author Yrn [facility]united hospit[facility] Note Date/Time December 07, 2024 5:4 7pm [facility] Medical Records Department [address] [place] [id number] Progress Note - Hospitalist 12/07/24 1746 MR#: [id number] Acct: [id number] Name: GRACIE BANUELOS Rep #:[id number] : 1965 59 From: Yrn Kahn DO PCP: Dr. Annmarie Elkins MD Status:ADM I N Location: [place] [address] Reason for Visit Reason for Visit: Diagnoses Stricture of artery (12/04/24) Chronic obstructive pulmonary disease with (acute) exacerbation (12/04/24) Acute respiratory failure with hypoxia (12/04/24) Solitary pulmonary nodule (12/04/24) Subjective Subjective Patient was seen and examined today, patient had a choking episode this morning at breakfast and was seen by speech therapy. Patient was placed back on a diet this afternoon. Objective Data Objective Data Vital Signs: Vital Signs Temp Pulse Resp BP Pulse Ox O2 Del Method O2 Flow Rate 98.1 F 79 20 H 137/66 H 93 High Flow 10 12/07/24 14:02 12/07/24 15:24 12/07/24 15:24 12/07/24 14:02 12/07/24 14:02 12/07/24 15:27 12/07/24 15:27 FiO2 56 12/07/24 08:56 Oxygen Flow Rate (L/min) 10 Oxygen Delivery Method High Flow Weight: 62.9 kg Body Mass Index (BMI) 24.5 Intake & Output: Intake and Output for Last 24 Hours 12/05/24 12/06/24 12/07/24 23:59 23:59 23:59 Intake Total 100 / 100 480 / 600 240 / 240 Output Total 750 / 750 450 / 450 Balance -650 / -650 480 / 600 -210 / -210 Lab / Micro Data 12/06/24 07:02 12/06/24 07:02 Labs: Laboratory Results - last 24 hr 12/07/24 10:55: NT pro BNP II 3318 H Micro: Microbiology 12/07/24 14:40 Mucosa - Nose SARS-CoV-2, Influenza & RSV (PCR) - Final 12/04/24 21:23 Mucosa - Nasopharyngeal Respiratory Panel (PCR) - Final 12/04/24 16:22 Mucosa - Nose SARS-CoV-2, Influenza & RSV (PCR) - Final Rhythm Strip Rhythm Strip: Sinus Tach Rate: 121 Ectopy: None Physical Exam Narrative alert, oriented x3 and no apparent distress Constitutional Narrative: Patient is currently on Airvo, she is alert and oriented x 3 General Appearance: cooperative, well kempt and well developed Orientation / Consciousness: awake, oriented to person, oriented to place and oriented to time HEENT normocephalic, head/scalp atraumatic and moist oral mucous membranes Eyes PERRL, EOMs intact bilaterally and conjunctivae normal Neck supple, no JVD, thyroid normal and no carotid bruits General: trachea midline Resp normal respiratory effort, no retractions and no use of accessory muscles Resp Narrative: Breath sounds are diminished bilaterally Auscultation: Negative for rales, rhonchi or wheezes Cardio regular rate, regular rhythm, S1 normal heart sound, S2 normal heart sound, no murmurs, no rub and no gallops GI normal to inspection, nondistended, normoactive bowel sounds, soft to palpation,non-tender and non-distended Extremity no clubbing, cyanosis or edema Skin no rashes or lesions noted General Skin Exam: no breakdown Neuro oriented x3, CN's II-XII intact bilaterally, moves all extremities, no focal motor deficits and no sensory deficits noted Sensorium / Orientation: awake and alert Speech: speech normal Psych affect normal Assessment & Plan Assessment/Plan (1) COPD with acute exacerbation: PLAN: Plan 1. Acute on chronic respiratory failure with hypoxemia and hypercapnia-continueaerosol treatments, IV corticosteroids and empiric antibiotics. Pulse ox will be monitored #2 end-stage COPD-complicates care, management, recovery, and prognosis, patientwill remain on current treatment including aerosols, empiric antibiotics, and IVcorticosteroids. #3 chronic abdominal pain-patient had a pancreatic block injection done recentlywhich did not help, I have elected to place her on tramadol for pain #4 chronic anxiety-patient is on low-dose Ativan twice daily Total clinical time spent by myself addressing the patient's medical issues, reviewing all of her data, and collaborating with patient's care team: 35 minutes Charges/Coding Visit Charges Inpatient E&M: 99817 Subs Hosp L2 12/07/24 1747 <Electronically signed by Yrn Kahn DO> Cosigner Signature (if applicable): CC: ~ Signed [facility] Work Phone: 1(953) 997-928403-12-2025 Progress note [facility] Medical Records Department [address] [place] [address] Progress Note - Hospitalist 12/07/24 1746 MR#: [id number] Acct: [id number] Name: GRACIE BANUELOS Rep #:[id number] : 1965 59 From: Yrn Kahn DO PCP: Dr. Annmarie Elkins MD Status:ADM I N Location: [place] [address] Reason for Visit Reason for Visit: Diagnoses Stricture of artery (12/04/24) Chronic obstructive pulmonary disease with (acute) exacerbation (12/04/24) Acute respiratory failure with hypoxia (12/04/24) Solitary pulmonary nodule (12/04/24) Subjective Subjective Patient was seen and examined today, patient had a choking episode this morning at breakfast and was seen by speech therapy. Patient was placed back on a diet this afternoon. Objective Data Objective Data Vital Signs: Vital Signs Temp Pulse Resp BP Pulse Ox O2 Del Method O2 Flow Rate 98.1 F 79 20 H 137/66 H 93 High Flow 10 12/07/24 14:02 12/07/24 15:24 12/07/24 15:24 12/07/24 14:02 12/07/24 14:02 12/07/24 15:27 12/07/24 15:27 FiO2 56 12/07/24 08:56 Oxygen Flow Rate (L/min) 10 Oxygen Delivery Method High Flow Weight: 62.9 kg Body Mass Index (BMI) 24.5 Intake & Output: Intake and Output for Last 24 Hours 12/05/24 12/06/24 12/07/24 23:59 23:59 23:59 Intake Total 100 / 100 480 / 600 240 / 240 Output Total 750 / 750 450 / 450 Balance -650 / -650 480 / 600 -210 / -210 Lab / Micro Data 12/06/24 07:02 12/06/24 07:02 Labs: Laboratory Results - last 24 hr 12/07/24 10:55: NT pro BNP II 3318 H Micro: Microbiology 12/07/24 14:40 Mucosa - Nose SARS-CoV-2, Influenza & RSV (PCR) - Final 12/04/24 21:23 Mucosa - Nasopharyngeal Respiratory Panel (PCR) - Final 12/04/24 16:22 Mucosa - Nose SARS-CoV-2, Influenza & RSV (PCR) - Final Rhythm Strip Rhythm Strip: Sinus Tach Rate: 121 Ectopy: None Physical Exam Narrative alert, oriented x3 and no apparent distress Constitutional Narrative: Patient is currently on Airvo, she is alert and oriented x 3 General Appearance: cooperative, well kempt and well developed Orientation / Consciousness: awake, oriented to person, oriented to place and oriented to time HEENT normocephalic, head/scalp atraumatic and moist oral mucous membranes Eyes PERRL, EOMs intact bilaterally and conjunctivae normal Neck supple, no JVD, thyroid normal and no carotid bruits General: trachea midline Resp normal respiratory effort, no retractions and no use of accessory muscles Resp Narrative: Breath sounds are diminished bilaterally Auscultation: Negative for rales, rhonchi or wheezes Cardio regular rate, regular rhythm, S1 normal heart sound, S2 normal heart sound, no murmurs, no rub and no gallops GI normal to inspection, nondistended, normoactive bowel sounds, soft to palpation,non-tender and non-distended Extremity no clubbing, cyanosis or edema Skin no rashes or lesions noted General Skin Exam: no breakdown Neuro oriented x3, CN's II-XII intact bilaterally, moves all extremities, no focal motor deficits and no sensory deficits noted Sensorium / Orientation: awake and alert Speech: speech normal Psych affect normal Assessment & Plan Assessment/Plan (1) COPD with acute exacerbation: PLAN: Plan 1. Acute on chronic respiratory failure with hypoxemia and hypercapnia- continueaerosol treatments, IV corticosteroids and empiric antibiotics. Pulse ox will be monitored #2 end-stage COPD-complicates care, management, recovery, and prognosis, patientwill remain on current treatment including aerosols, empiric antibiotics, and IVcorticosteroids. #3 chronic abdominal pain-patient had a pancreatic block injection done recentlywhich did not help,I have elected to place her on tramadol for pain #4 chronic anxiety-patient is on low-dose Ativan twice daily Total clinical time spent by myself addressing the patient's medical issues, reviewing all of her data, and collaborating with patient's care team: 35 minutes Charges/Coding Visit Charges Inpatient E&M: 68989 Subs Hosp L2 12/07/24 2197 Cosigner Signature (if applicable): CC: ~ Signed [facility]03-12-2025 Progress note Author Gonzalo Sebastian [facility] Note Date/Time December 07, 2024 12: 23pm [facility] Medical Records Department [address] [place] [address] Progress Note - Salon Leader 12/07/24 0959 MR#: [id number] Acct: [id number] Name: GRACIE BNAUELOS Rep #:[id number] : 1965 59 From: Gonzalo Sebastian DO PCP: Dr. Annmarie Elkins MD Status:ADM I N Location: [place] [address] Assessment & Plan Assessment/Plan (1) COPD with acute exacerbation: (2) Acute hypoxic respiratory failure: PLAN: Plan RECOMMENDATIONS: 1. Continue to wean supplemental oxygen as tolerated. 2. Continue empiric antibiotics, bronchodilators and steroids. 3. The patient is to remain n.p.o., pending evaluation by speech therapy. 4. Continue appropriate DVT prophylaxis. 5. Continue nicotine replacement therapy. 6. Aggressive medical management of underlying anxiety. IMPRESSIONS: 1. Acute respiratory failure with hypoxemia and hypercapnia Unclear precipitating etiology. CTA chest showed no evidence for pulmonary embolism. There was no evidence of a focal infiltrate to suggest pneumonia. Echocardiogram revealed intact systolic function. Right ventricular systolic pressure was unable to be estimated. Respiratory viral panel was negative. The patient does have evidence of end-stage lung disease based upon pulmonary function studies completed last month. It is certainly plausible that the patient's anxiety may have also contributed to her acute decompensation with increasing respiratory rate leading to worsening air trapping. In addition, there are concerns that the patient may be aspirating with p.o. intake. Therefore, the patient has been made n.p.o., pending evaluation by speech therapy. In the interim, continue to wean supplemental oxygen to maintain saturations at or above 90%. The patient does have a history of a prior hospitalization in October 2022 in the setting of a panic attack with generalized anxiety disorder leading to acute decompensation in her respiratory status. 2. Chronic tobacco dependency/bipolar disorder/depression/anxiety/chronic pancreatitis Complicates care, management, recovery and prognosis. Continue home medicationsas indicated. This note was generated with [employer] dictation software. It may contain incorrectwords, spelling, and punctuation that were not noted in checking the note beforesigning. Subjective Subjective The patient was seen and examined at the bedside this morning. Events from the last 24 hours have been reviewed. The patient is currently afebrile, hemodynamically stable and maintaining appropriate oxygen saturations on 15 L/min high flow nasal cannula. The patient currently denies any resting shortness of breath. Nursing staff reported concerns for potential aspiration this morning when eating eggs. Therefore, the patient has been made n.p.o., pending evaluation by speech therapy. She remains on antimicrobials, bronchodilators and steroids. Objective Data Objective Data The patient's most recent lab work, culture data and imaging studies have all been personally reviewed. COVID, influenza and RSV PCR's were negative. Vital Signs: Vital Signs Temp Pulse Resp BP Pulse Ox O2 Del Method O2 Flow Rate 98.1 F 94 18 161/62 H 92 Airvo 45 12/07/24 08:56 12/07/24 08:56 12/07/24 08:56 12/07/24 08:56 12/07/24 08:56 12/07/24 08:56 12/07/24 08:56 FiO2 56 12/07/24 08:56 Oxygen Flow Rate (L/min) 45 Oxygen Delivery Method Airvo Weight: 138 lb 10.732 oz Body Mass Index (BMI) 24.5 Intake & Output: Intake and Output for Last 24 Hours 12/05/24 12/06/24 12/07/24 23:59 23:59 23:59 Intake Total 100 / 100 480 / 600 180 / 180 Output Total 750 / 750 150 / 150 Balance -650 / -650 480 / 600 30 / 30 Lab / Micro Data Attestation: I reviewed the patient's lab results. 12/06/24 07:02 12/06/24 07:02 Labs: Laboratory Results - last 24 hr 12/06/24 07:02: WBC 26.2 H, RBC 4.62, Hgb 12.6, Hct 39.6, MCV 85.7, MCH 27.3, MCHC 31.8 L, RDW Std Deviation 47.7 H, RDW Coeff of Min 15.3 H, Plt Count 260, MPV 10.5, Immature Gran % (Auto) 0.900, Neut % (Auto) 88.4 H, Lymph % (Auto) 4.5L, Kened[place] % (Auto) 6.0, Eos % (Auto) 0.0, Baso % (Auto) 0.2, Absolute Neuts (auto)23.2 H, Absolute Lymphs (auto) 1.17, Nucleated RBC % 0, Diff Path Review January, Platelet Estimate A, Sodium 134, Potassium 4.9, Chloride 98, Carbon Dioxide 23.2, Anion Gap 13, BUN 44 H, Creatinine 1.57 H, Estim Creat Clear Calc 31.13 L, Est GFR (MDRD) Non-Af 37 L, BUN/Creatinine Ratio 27.8 H, Glucose 166 H,Calcium 9.3, NT pro BNP II 2014 H, Procalcitonin 0.31 H Micro: Microbiology 12/04/24 21:23 Mucosa - Nasopharyngeal Respiratory Panel (PCR) - Final 12/04/24 16:22 Mucosa - Nose SARS-CoV-2, Influenza & RSV (PCR) - Final Radiography Diagnostic Testing: Radiology Impression Echocardiogram 12/05/24 13:19 Interpretation Summary The estimated ejection fraction is 70 %. Unable to assess diastolic dysfunction. Trivial mitral valve insufficiency. Ordering Physician: Gonzalo Sebastian Referring Physician: ANNMARIE ELKINS Performed By: Grazyna Lazaro RCS Rhythm Strip Rhythm Strip: Sinus Tach Rate: 121 Ectopy: None Physical Exam Const alert, oriented x3 and no apparent distress General Appearance: cooperative HEENT normocephalic and head/scalp atraumatic Eyes PERRL, EOMs intact bilaterally and conjunctivae normal Neck supple General: trachea midline Chest inspection of chest normal Resp normal respiratory effort Auscultation: wheezes and diminished lung sounds Cardio regular rate and regular rhythm GI normal to inspection, nondistended, normoactive bowel sounds Extremity no clubbing, cyanosis or edema Skin no rashes or lesions noted Neuro CN's II-XII intact bilaterally, moves all extremities and no focal motor deficits Psych Mood & Affect: anxious Charges/Coding Visit Charges Inpatient E&M: 13762 Subs Hosp L2 12/07/24 1223 <Electronically signed by Gonzalo Sebastian DO> Cosigner Signature (if applicable): CC: ~ Signed [facility] Work Phone: 1(439) 940-601103-12-2025 Progress note [facility] Medical Records Department [address] [place] [address] Progress Note - Salon Leader 12/07/24 0959 MR#: [id number] Acct: [id number] Name: GRACIE BANUELOS Rep #:[id number] : 1965 59 From: Gonzalo Sebastian DO PCP: Dr. Annmarie Elkins MD Status:ADM I N Location: [place] [address] Assessment & Plan Assessment/Plan (1) COPD with acute exacerbation: (2) Acute hypoxic respiratory failure: PLAN: Plan RECOMMENDATIONS: 1. Continue to wean supplemental oxygen as tolerated. 2. Continue empiric antibiotics, bronchodilators and steroids. 3. The patient is to remain n.p.o., pending evaluation by speech therapy. 4. Continue appropriate DVT prophylaxis. 5. Continue nicotine replacement therapy. 6. Aggressive medical management of underlying anxiety. IMPRESSIONS: 1. Acute respiratory failure with hypoxemia and hypercapnia Unclear precipitating etiology. CTA chest showed no evidence for pulmonary embolism. There was no evidence of a focal infiltrate to suggest pneumonia. Echocardiogram revealed intact systolic function. Right ventricular systolic pressure was unable to be estimated. Respiratory viral panel was negative. The patient does have evidence of end-stage lung disease based upon pulmonary function studies completed last month. It is certainly plausible that the patient's anxiety may have also contributed to her acute decompensation with increasing respiratory rate leading to worsening air trapping. In addition, there are concerns that the patient may be aspirating with p.o. intake. Therefore, the patient has been made n.p.o., pending evaluation by speech therapy. In the interim, continue to wean supplemental oxygen to maintain saturations at or above 90%. The patient does have a history of a prior hospitalization in October 2022 in the setting of a panic attack with generalized anxiety disorderleading to acute decompensation in her respiratory status. 2. Chronic tobacco dependency/bipolar disorder/depression/anxiety/chronic pancreatitis Complicates care, management, recovery and prognosis. Continue home medicationsas indicated. This note was generated with [employer]ne dictation software. It may contain incorrectwords, spelling, and punctuation that were not noted in checking the note beforesigning. Subjective Subjective The patient was seen and examined at the bedside this morning. Events from the last 24 hours have been reviewed. The patient is currently afebrile, hemodynamically stable and maintaining appropriate oxygen saturations on 15 L/min high flow nasal cannula. The patient currently denies any resting shor tness of breath. Nursing staff reported concerns for potential aspiration this morning when eating eggs. Therefore, the patient has been made n.p.o., pending evaluation by speech therapy. She remainson antimicrobials, bronchodilators and steroids. Objective Data Objective Data The patient's most recent lab work, culture data and imaging studies have all been personally reviewed. COVID, influenza and RSV PCR's were negative. Vital Signs: Vital Signs Temp Pulse Resp BP Pulse Ox O2 Del Method O2 Flow Rate 98.1 F 94 18 161/62 H 92 Airvo 45 12/07/24 08:56 12/07/24 08:56 12/07/24 08:56 12/07/24 08:56 12/07/24 08:56 12/07/24 08:56 12/07/24 08:56 FiO2 56 12/07/24 08:56 Oxygen Flow Rate (L/min) 45 Oxygen Delivery Method Airvo Weight: 138 lb 10.732 oz Body Mass Index (BMI) 24.5 Intake & Output: Intake and Output for Last 24 Hours 12/05/24 12/06/24 12/07/24 23:59 23:59 23:59 Intake Total 100 / 100 480 / 600 180 / 180 Output Total 750 / 750 150 / 150 Balance -650 / -650 480 / 600 30 / 30 Lab / Micro Data Attestation: I reviewed the patient's lab results. 12/06/24 07:02 12/06/24 07:02 Labs: Laboratory Results - last 24 hr 12/06/24 07:02: WBC 26.2 H, RBC 4.62, Hgb 12.6, Hct 39.6, MCV 85.7, MCH 27.3, MCHC 31.8 L, RDW Std Deviation 47.7 H, RDW Coeff of Min 15.3 H, Plt Count 260, MPV 10.5, Immature Gran % (Auto) 0.900, Neut % (Auto) 88.4 H, Lymph % (Auto) 4.5L, Kenedy % (Auto) 6.0, Eos % (Auto) 0.0, Baso % (Auto) 0.2, Absolute Neuts (auto)23.2 H, Absolute Lymphs (auto) 1.17, Nucleated RBC % 0, Diff Path Review January,Platelet Estimate A, Sodium 134, Potassium 4.9, Chloride 98, Carbon Dioxide 23.2, Anion Gap 13, BUN44 H, Creatinine 1.57 H, Estim Creat Clear Calc 31.13 L, Est GFR (MDRD) Non-Af 37 L, BUN/CreatinineRatio 27.8 H, Glucose 166 H,Calcium 9.3, NT pro BNP II 2014 H, Procalcitonin 0.31 H Micro: Microbiology 12/04/24 21:23 Mucosa - Nasopharyngeal Respiratory Panel (PCR) - Final 12/04/24 16:22 Mucosa - Nose SARS-CoV-2, Influenza & RSV (PCR) - Final Radiography Diagnostic Testing: Radiology Impression Echocardiogram 12/05/24 13:19 Interpretation Summary The estimated ejection fraction is 70 %. Unable to assess diastolic dysfunction. Trivial mitral valve insufficiency. Ordering Physician: Gonzalo Sebastian Referring Physician: ANNMARIE ELKINS Performed By: Grazyna Lazaro RCS Rhythm Strip Rhythm Strip: Sinus Tach Rate: 121 Ectopy: None Physical Exam Const alert, oriented x3 and no apparent distress General Appearance: cooperative HEENT normocephalic and head/scalp atraumatic Eyes PERRL, EOMs intact bilaterally and conjunctivae normal Neck supple General: trachea midline Chest inspection of chest normal Resp normal respiratory effort Auscultation: wheezes and diminished lung sounds Cardio regular rate and regular rhythm GI normal to inspection, nondistended, normoactive bowel sounds Extremity no clubbing, cyanosis or edema Skin no rashes or lesions noted Neuro CN's II-XII intact bilaterally, moves all extremities and no focal motor deficits Psych Mood & Affect: anxious Charges/Coding Visit Charges Inpatient E&M: 24047 Subs Hosp L2 12/07/24 1223 Cosigner Signature (if applicable): CC: ~ Signed [facility]03-11-2025 Progress note Author Yrn Kahn [facility] Note Date/Time December 06, 2024 8:2 6pm [facility] Medical Records Department [address] [place] [address] Progress Note - Hospitalist 12/06/242023 MR#: [id number] Acct: [id number] Name: GRACIE BANUELOS Rep #:[id number] : 1965 59 From: Yrn Kahn DO PCP: Dr. Annmarie Elkins MD Status:ADM I N Location: [place] [address] Reason for Visit Reason for Visit: Diagnoses Stricture of artery (12/04/24) Chronic obstructive pulmonary disease with (acute) exacerbation (12/04/24) Acute respiratory failure with hypoxia (12/04/24) Solitary pulmonary nodule (12/04/24) Subjective Subjective Patient was seen and examined today, I talked with pulmonary medicine about her care, she seems to be making some slow progress with her respiratory failure. Echocardiogram was performed and it showed a normal EF with no significant valvular heart disease. Pulmonary artery pressure was not able to be estimated. Objective Data Objective Data Vital Signs: Vital Signs Temp Pulse Resp BP Pulse Ox O2 Del Method O2 Flow Rate 97.7 F L 76 18 106/49 L 94 Airvo 45 12/06/24 15:20 12/06/24 15:20 12/06/24 15:20 12/06/24 15:20 12/06/24 15:20 12/06/24 15:20 12/06/24 15:20 FiO2 47 12/06/24 15:20 Oxygen Flow Rate (L/min) 45 Oxygen Delivery Method Airvo Weight: 61.4 kg Body Mass Index (BMI) 24.0 Intake & Output: Intake and Output for Last 24 Hours 12/05/24 12/05/24 12/06/24 00:59 23:59 23:59 Intake Total 240 / 240 100 / 100 480 / 480 Output Total 750 / 750 Balance 240 / 240 -650 / -650 480 / 480 Lab / Micro Data 12/06/24 07:02 12/06/24 07:02 Labs: Laboratory Results - last 24 hr 12/06/24 07:02: WBC 26.2 H, RBC 4.62, Hgb 12.6, Hct 39.6, MCV 85.7, MCH 27.3, MCHC 31.8 L, RDW Std Deviation 47.7 H, RDW Coeff of Min 15.3 H, Plt Count 260, MPV 10.5, Immature Gran % (Auto) 0.900, Neut % (Auto) 88.4 H, Lymph % (Auto) 4.5L, Kenedy % (Auto) 6.0, Eos % (Auto) 0.0, Baso % (Auto) 0.2, Absolute Neuts (auto)23.2 H, Absolute Lymphs (auto) 1.17, Nucleated RBC % 0, Diff Path Review May foll, Platelet Estimate A, Sodium 134, Potassium 4.9, Chloride 98, Carbon Dioxide 23.2, Anion Gap 13, BUN 44 H, Creatinine 1.57 H, Estim Creat Clear Calc 31.13 L, Est GFR (MDRD) Non-Af 37 L, BUN/Creatinine Ratio 27.8 H, Glucose 166 H,Calcium 9.3, NT pro BNP II 2014 H, Procalcitonin 0.31 H Micro: Microbiology 12/04/24 21:23 Mucosa - Nasopharyngeal Respiratory Panel (PCR) - Final 12/04/24 16:22 Mucosa - Nose SARS-CoV-2, Influenza & RSV (PCR) - Final Radiography Diagnostic Testing: Radiology Impression Echocardiogram 12/05/24 13:19 Interpretation Summary The estimated ejection fraction is 70 %. Unable to assess diastolic dysfunction. Trivial mitral valve insufficiency. Ordering Physician: Gonzalo Sebastian Referring Physician: ANNMARIE ELKINS Performed By: Grazyna Lazaro RCS Rhythm Strip Rhythm Strip: Sinus Tach Rate: 121 Ectopy: None Physical Exam Narrative alert, oriented x3 and no apparent distress Constitutional Narrative: Patient is currently on Airvo, she is alert and oriented x 3 General Appearance: cooperative, well kempt and well developed Orientation / Consciousness: awake, oriented to person, oriented to place and oriented to time HEENT normocephalic, head/scalp atraumatic and moist oral mucous membranes Eyes PERRL, EOMs intact bilaterally and conjunctivae normal Neck supple, no JVD, thyroid normal and no carotid bruits General: trachea midline Resp normal respiratory effort, no retractions and no use of accessory muscles Resp Narrative: Breath sounds are diminished bilaterally Auscultation: Negative for rales, rhonchi or wheezes Cardio regular rate, regular rhythm, S1 normal heart sound, S2 normal heart sound, no murmurs, no rub and no gallops GI normal to inspection, nondistended, normoactive bowel sounds, soft to palpation,non-tender and non-distended Extremity no clubbing, cyanosis or edema Skin no rashes or lesions noted General Skin Exam: no breakdown Neuro oriented x3, CN's II-XII intact bilaterally, moves all extremities, no focal motor deficits and no sensory deficits noted Sensorium / Orientation: awake and alert Speech: speech normal Psych affect normal Assessment & Plan Assessment/Plan (1) COPD with acute exacerbation: PLAN: Plan 1. Acute on chronic respiratory failure with hypoxemia and hypercapnia-continueaerosol treatments, IV corticosteroids and empiric antibiotics. Pulse ox will be monitored #2 end-stage COPD-complicates care, management, recovery, and prognosis, patientwill remain on current treatment including aerosols, empiric antibiotics, and IVcorticosteroids. #3 chronic abdominal pain-patient had a pancreatic block injection done recentlywhich did not help, I have elected to place her on tramadol for pain #4 chronic anxiety-patient is on low-dose Ativan twice daily Total clinical time spent by myself addressing the patient's medical issues, reviewing all of her data, and collaborating with patient's care team: 35 minutes Charges/Coding Visit Charges Inpatient E&M: 06456 Subs Hosp L2 12/06/242025 <Electronically signed by Yrn Kahn DO> Cosigner Signature (if applicable): CC: ~ Signed [facility] Work Phone: [phone]) 878-628303-11-2025 Progress note Author Yrn Kahn [facility] Note Date/Time December 06, 2024 8:2 4pm [facility] Medical Records Department [address] [place] [address] Progress Note - Hospitalist 12/05/241943 MR#: [id number] Acct: [id number] Name: GRACIE BANUELOS Rep #:[id number] : 1965 59 From: Yrn Kahn DO PCP: Dr. Annmarie Elkins MD Status:ADM I N Location: [place] [address] Reason for Visit Reason for Visit: Diagnoses Stricture of artery (12/04/24) Chronic obstructive pulmonary disease with (acute) exacerbation (12/04/24) Acute respiratory failure with hypoxia (12/04/24) Solitary pulmonary nodule (12/04/24) Subjective Subjective Patient was seen and examined today, she is currently on Airvo, I had pulmonary medicine see the patient in consultation today and they recommended 1 dose of diuretic and continuation of her IV corticosteroids and aggressive aerosol treatments. They did not have anything to add other than that. Pulmonary medicine also recommended the patient remain on antibiotics for now. Objective Data Objective Data Vital Signs: Vital Signs Temp Pulse Resp BP Pulse Ox O2 Del Method O2 Flow Rate 98.5 F 87 20 H 110/72 93 Airvo 60 12/05/24 16:45 12/05/24 19:19 12/05/24 19:19 12/05/24 16:45 12/05/24 19:30 12/05/24 19:30 12/05/24 19:30 FiO2 60 12/05/24 19:30 Oxygen Flow Rate (L/min) 60 Oxygen Delivery Method Airvo Weight: 62 kg Body Mass Index (BMI) 24.2 Intake & Output: Intake and Output for Last 24 Hours 12/03/24 12/05/24 12/05/24 23:59 00:59 23:59 Intake Total 240 / 240 100 / 100 Output Total 750 / 750 Balance 240 / 240 -650 / -650 Lab / Micro Data 12/06/24 07:02 12/06/24 07:02 Labs: Laboratory Results - last 24 hr 12/05/24 05:28: WBC 16.9 H, RBC 4.61, Hgb 12.2, Hct 39.2, MCV 85.0, MCH 26.5 L, MCHC 31.1 L, RDW Std Deviation 46.7 H, RDW Coeff of Min 14.9 H, Plt Count 250, MPV 10.9, Immature Gran % (Auto) 1.400 H, Neut % (Auto) 89.0 H, Lymph % (Auto) 5.1 L, Kenedy % (Auto) 4.0, Eos % (Auto) 0.1, Baso % (Auto) 0.4, Absolute Neuts (auto) 15.1 H, Absolute Lymphs (auto) 0.86, Nucleated RBC % 0, Sodium 134, Potassium 4.8, Chloride 97 L, Carbon Dioxide 21.0, Anion Gap 16 H, BUN 19, Creatinine 1.37 H, Estim Creat Clear Calc 35.67 L, Est GFR (MDRD) Non-Af 44 L, BUN/Creatinine Ratio 14.0, Glucose 144 H, Calcium 6.7 L, Phosphorus 6.2 H, Magnesium 2.0, Total Bilirubin 0.18, AST 62 H, ALT 39 H, Alkaline Phosphatase 149 H, Total Protein 7.0, Albumin 3.8, Globulin 3.2, Albumin/Globulin Ratio 1.2 Micro: Microbiology 12/04/24 21:23 Mucosa - Nasopharyngeal Respiratory Panel (PCR) - Final 12/04/24 16:22 Mucosa - Nose SARS-CoV-2, Influenza & RSV (PCR) - Final ABG Data ABG results: ABG 12/05/24 12/05/24 08:08 10:46 Specimen Type ART ART Sample Site R Radial R Radial pH 7.27 L 7.24 L Bicarbonate Actual 23.8 26.4 H Total CO2 25 28 Base Excess -3 L -1 O2 Saturation 85 L 89 L O2 % 45.0 ABG pCO2 51.6 H 61.0 H ABG pO2 57 L 68 L Sergei Test Positive Respiration Rate 14 O2 Delivery Device BiPAP Not entered Vent Mode Not entered Not entered Clinical Comments 425 60 75 Rhythm Strip Rhythm Strip: Sinus Tach Rate: 121 Ectopy: None Physical Exam Const alert, oriented x3 and no apparent distress Constitutional Narrative: Patient is currently on Airvo, she is alert and oriented x 3 General Appearance: cooperative, well kempt and well developed Orientation / Consciousness: awake, oriented to person, oriented to place and oriented to time HEENT normocephalic, head/scalp atraumatic and moist oral mucous membranes Eyes PERRL, EOMs intact bilaterally and conjunctivae normal Neck supple, no JVD, thyroid normal and no carotid bruits General: trachea midline Resp normal respiratory effort, no retractions and no use of accessory muscles Resp Narrative: Breath sounds are diminished bilaterally Auscultation: Negative for rales, rhonchi or wheezes Cardio regular rate, regular rhythm, S1 normal heart sound, S2 normal heart sound, no murmurs, no rub and no gallops GI normal to inspection, nondistended, normoactive bowel sounds, soft to palpation,non-tender and non-distended Extremity no clubbing, cyanosis or edema Skin no rashes or lesions noted General Skin Exam: no breakdown Neuro oriented x3, CN's II-XII intact bilaterally, moves all extremities, no focal motor deficits and no sensory deficits noted Sensorium / Orientation: awake and alert Speech: speech normal Psych affect normal Assessment & Plan Assessment/Plan (1) COPD with acute exacerbation: PLAN: Plan 1. Acute on chronic respiratory failure with hypoxemia and hypercapnia-continueaerosol treatments, IV corticosteroids and patient was given 1 dose of IV diuresis today. Pulmonary medicine is participating in her care, patient is currently on Airvo #2 end-stage COPD-complicates care, management, recovery, and prognosis, patientwill remain on current treatment including aerosols, empiric antibiotics, and IVcorticosteroids. #3 chronic abdominal pain-patient had a pancreatic block injection done recentlywhich did not help, I have elected to place her on tramadol for pain #4 chronic anxiety-patient is on low-dose Ativan twice daily Total clinical time spent by myself addressing the patient's medical issues, reviewing all of her data, and collaborating with patient's care team: 50 minutes Charges/Coding Visit Charges Inpatient E&M: 37376 Subs Hosp L3 12/06/242023 <Electronically signed by Yrn Kahn DO> Cosigner Signature (if applicable): CC: ~ Signed [facility] Work Phone: [phone]) 407-780303-11-2025 Progress note [facility] Medical Records Department [address] [place] [address] Progress Note - Hospitalist 12/06/242023 MR#: [id number] Acct: [id number] Name: GRACIE BANUELOS Rep #:[id number] : 1965 59 From: Yrn Kahn DO PCP: Dr. Annmarie Elkins MD Status:ADM I N Location: [place] [address] Reason for Visit Reason for Visit: Diagnoses Stricture of artery (12/04/24) Chronic obstructive pulmonary disease with (acute) exacerbation (12/04/24) Acute respiratory failure with hypoxia (12/04/24) Solitary pulmonary nodule (12/04/24) Subjective Subjective Patient was seen and examined today, I talked with pulmonary medicine about her care, she seems to be making some slow progress with her respiratory failure. Echocardiogram was performed and it showed a normal EF with no significant valvular heart disease. Pulmonary artery pressure was not able to be estimated. Objective Data Objective Data Vital Signs: Vital Signs Temp Pulse Resp BP Pulse Ox O2 Del Method O2 Flow Rate 97.7 F L 76 18 106/49 L 94 Airvo 45 12/06/24 15:20 12/06/24 15:20 12/06/24 15:20 12/06/24 15:20 12/06/24 15:20 12/06/24 15:20 12/06/24 15:20 FiO2 47 12/06/24 15:20 Oxygen Flow Rate (L/min) 45 Oxygen Delivery Method Airvo Weight: 61.4 kg Body Mass Index (BMI) 24.0 Intake & Output: Intake and Output for Last 24 Hours 12/05/24 12/05/24 12/06/24 00:59 23:59 23:59 Intake Total 240 / 240 100 / 100 480 / 480 Output Total 750 / 750 Balance 240 / 240 -650 / -650 480 / 480 Lab / Micro Data 12/06/24 07:02 12/06/24 07:02 Labs: Laboratory Results - last 24 hr 12/06/24 07:02: WBC 26.2 H, RBC 4.62, Hgb 12.6, Hct 39.6, MCV 85.7, MCH 27.3, MCHC 31.8 L, RDW Std Deviation 47.7 H, RDW Coeff of Min 15.3 H, Plt Count 260, MPV 10.5, Immature Gran % (Auto) 0.900, Neut % (Auto) 88.4 H, Lymph % (Auto) 4.5L, Kenedy % (Auto) 6.0, Eos % (Auto) 0.0, Baso % (Auto) 0.2, Absolute Neuts (auto)23.2 H, Absolute Lymphs (auto) 1.17, Nucleated RBC % 0, Diff Path Review January,Platelet Estimate A, Sodium 134, Potassium 4.9, Chloride 98, Carbon Dioxide 23.2, Anion Gap 13, BUN44 H, Creatinine 1.57 H, Estim Creat Clear Calc 31.13 L, Est GFR (MDRD) Non-Af 37 L, BUN/CreatinineRatio 27.8 H, Glucose 166 H,Calcium 9.3, NT pro BNP II 2014 H, Procalcitonin 0.31 H Micro: Microbiology 12/04/24 21:23 Mucosa - Nasopharyngeal Respiratory Panel (PCR) - Final 12/04/24 16:22 Mucosa - Nose SARS-CoV-2, Influenza & RSV (PCR) - Final Radiography Diagnostic Testing: Radiology Impression Echocardiogram 12/05/24 13:19 Interpretation Summary The estimated ejection fraction is 70 %. Unable to assess diastolic dysfunction. Trivial mitral valve insufficiency. Ordering Physician: Gonzalo Sebastian Referring Physician: ANNMARIE ELKINS Performed By: Grazyna Lazaro RCS Rhythm Strip Rhythm Strip: Sinus Tach Rate: 121 Ectopy: None Physical Exam Narrative alert, oriented x3 and no apparent distress Constitutional Narrative: Patient is currently on Airvo, she is alert and oriented x 3 General Appearance: cooperative, well kempt and well developed Orientation / Consciousness: awake, oriented to person, oriented to place and oriented to time HEENT normocephalic, head/scalp atraumatic and moist oral mucous membranes Eyes PERRL, EOMs intact bilaterally and conjunctivae normal Neck supple, no JVD, thyroid normal and no carotid bruits General: trachea midline Resp normal respiratory effort, no retractions and no use of accessory muscles Resp Narrative: Breath sounds are diminished bilaterally Auscultation: Negative for rales, rhonchi or wheezes Cardio regular rate, regular rhythm, S1 normal heart sound, S2 normal heart sound, no murmurs, no rub and no gallops GI normal to inspection, nondistended, normoactive bowel sounds, soft to palpation,non-tender and non-distended Extremity no clubbing, cyanosis or edema Skin no rashes or lesions noted General Skin Exam: no breakdown Neuro oriented x3, CN's II-XII intact bilaterally, moves all extremities, no focal motor deficits and no sensory deficits noted Sensorium / Orientation: awake and alert Speech: speech normal Psych affect normal Assessment & Plan Assessment/Plan (1) COPD with acute exacerbation: PLAN: Plan 1. Acute on chronic respiratory failure with hypoxemia and hypercapnia- continueaerosol treatments, IV corticosteroids and empiric antibiotics. Pulse ox will be monitored #2 end-stage COPD-complicates care, management, recovery, and prognosis, patientwill remain on current treatment including aerosols, empiric antibiotics, and IVcorticosteroids. #3 chronic abdominal pain-patient had a pancreatic block injection done recentlywhich did not help,I have elected to place her on tramadol for pain #4 chronic anxiety-patient is on low-dose Ativan twice daily Total clinical time spent by myself addressing the patient's medical issues, reviewing all of her data, and collaborating with patient's care team: 35 minutes Charges/Coding Visit Charges Inpatient E&M: 70384 [facility] Hosp L2 12/06/242025 Cosigner Signature (if applicable): CC: ~ Signed [facility]03-11-2025 Progress note [facility] Medical Records Department [address] [place] [address] Progress Note - Hospitalist 12/05/241943 MR#: [id number] Acct: [id number] Name: GRACIE BANUELOS Rep #:[id number] : 1965 59 From: Yrn Kahn DO PCP: Dr. Annmarie Elkins MD Status:ADM I N Location: [place] [address] Reason for Visit Reason for Visit: Diagnoses Stricture of artery (12/04/24) Chronic obstructive pulmonary disease with (acute) exacerbation (12/04/24) Acute respiratory failure with hypoxia (12/04/24) Solitary pulmonary nodule (12/04/24) Subjective Subjective Patient was seen and examined today, she is currently on Airvo, I had pulmonary medicine see the patient in consultation today and they recommended 1 dose of diuretic and continuation of her IV corticosteroids and aggressive aerosol treatments. They did not have anything to add other than that. Pulmonary medicine also recommended the patient remain on antibiotics for now. Objective Data Objective Data Vital Signs: Vital Signs Temp Pulse Resp BP Pulse Ox O2 Del Method O2 Flow Rate 98.5 F 87 20 H 110/72 93 Airvo 60 12/05/24 16:45 12/05/24 19:19 12/05/24 19:19 12/05/24 16:45 12/05/24 19:30 12/05/24 19:30 12/05/24 19:30 FiO2 60 12/05/24 19:30 Oxygen Flow Rate (L/min) 60 Oxygen Delivery Method Airvo Weight: 62 kg Body Mass Index (BMI) 24.2 Intake & Output: Intake and Output for Last 24 Hours 12/03/24 12/05/24 12/05/24 23:59 00:59 23:59 Intake Total 240 / 240 100 / 100 Output Total 750 / 750 Balance 240 / 240 -650 / -650 Lab / Micro Data 12/06/24 07:02 12/06/24 07:02 Labs: Laboratory Results - last 24 hr 12/05/24 05:28: WBC 16.9 H, RBC 4.61, Hgb 12.2, Hct 39.2, MCV 85.0, MCH 26.5 L, MCHC 31.1 L, RDW Std Deviation 46.7 H, RDW Coeff of Min 14.9 H, Plt Count 250, MPV 10.9, Immature Gran % (Auto) 1.400 H, Neut % (Auto) 89.0 H, Lymph % (Auto) 5.1 L, Kenedy % (Auto) 4.0, Eos % (Auto) 0.1, Baso % (Auto) 0.4, Absolute Neuts (auto) 15.1 H, Absolute Lymphs (auto) 0.86, Nucleated RBC % 0, Sodium 134, Potassium 4.8, Chloride 97 L, Carbon Dioxide 21.0, Anion Gap 16 H, BUN 19, Creatinine 1.37 H, Estim Creat Clear Calc 35.67 L, Est GFR (MDRD) Non-Af 44 L, BUN/Creatinine Ratio 14.0, Glucose 144 H, Calcium 6.7 L, Phosphorus 6.2 H, Magnesium 2.0, Total Bilirubin 0.18, AST 62 H, ALT 39 H, Alkaline Phosphatase 14 9 H, Total Protein 7.0, Albumin 3.8, Globulin 3.2, Albumin/Globulin Ratio 1.2 Micro: Microbiology 12/04/24 21:23 Mucosa - Nasopharyngeal Respiratory Panel (PCR) - Final 12/04/24 16:22 Mucosa - Nose SARS-CoV-2, Influenza & RSV (PCR) - Final ABG Data ABG results: ABG 12/05/24 12/05/24 08:08 10:46 Specimen Type ART ART Sample Site R Radial R Radial pH 7.27 L 7.24 L Bicarbonate Actual 23.8 26.4 H Total CO2 25 28 Base Excess -3 L -1 O2 Saturation 85 L 89 L O2 % 45.0 ABG pCO2 51.6 H 61.0 H ABG pO2 57 L 68 L Sergei Test Positive Respiration Rate 14 O2 Delivery Device BiPAP Not entered Vent Mode Not entered Not entered Clinical Comments 425 60 75 Rhythm Strip Rhythm Strip: Sinus Tach Rate: 121 Ectopy: None Physical Exam Const alert, oriented x3 and no apparent distress Constitutional Narrative: Patient is currently on Airvo, she is alert and oriented x 3 General Appearance: cooperative, well kempt and well developed Orientation / Consciousness: awake, oriented to person, oriented to place and oriented to time HEENT normocephalic, head/scalp atraumatic and moist oral mucous membranes Eyes PERRL, EOMs intact bilaterally and conjunctivae normal Neck supple, no JVD, thyroid normal and no carotid bruits General: trachea midline Resp normal respiratory effort, no retractions and no use of accessory muscles Resp Narrative: Breath sounds are diminished bilaterally Auscultation: Negative for rales, rhonchi or wheezes Cardio regular rate, regular rhythm, S1 normal heart sound, S2 normal heart sound, no murmurs, no rub and no gallops GI normal to inspection, nondistended, normoactive bowel sounds, soft to palpation,non-tender and non-distended Extremity no clubbing, cyanosis or edema Skin no rashes or lesions noted General Skin Exam: no breakdown Neuro oriented x3, CN's II-XII intact bilaterally, moves all extremities, no focal motor deficits and no sensory deficits noted Sensorium / Orientation: awake and alert Speech: speech normal Psych affect normal Assessment & Plan Assessment/Plan (1) COPD with acute exacerbation: PLAN: Plan 1. Acute on chronic respiratory failure with hypoxemia and hypercapnia- continueaerosol treatments, IV corticosteroids and patient was given 1 dose of IV diuresis today. Pulmonary medicine is participating in her care, patient is currently on Airvo #2 end-stage COPD-complicates care, management, recovery, and prognosis, patientwill remain on current treatment including aerosols, empiric antibiotics, and IVcorticosteroids. #3 chronic abdominal pain-patient had a pancreatic block injection done recentlywhich did not help,I have elected to place her on tramadol for pain #4 chronic anxiety-patient is on low-dose Ativan twice daily Total clinical time spent by myself addressing the patient's medical issues, reviewing all of her data, and collaborating with patient's care team: 50 minutes Charges/Coding Visit Charges Inpatient E&M: 92519 Subs Hosp L3 12/06/242023 Cosigner Signature (if applicable): CC: ~ Signed [facility]03-11-2025 Progress note Author Gonzalo Sebastian [facility] Note Date/Time December 06, 2024 11: 38am [facility] Medical Records Department [address] [place] [address] Progress Note - Salon Leader 12/06/24 1134 MR#: [id number] Acct: [id number] Name: GRACIE BANUELOS Rep #:[id number] : 1965 59 From: Gonzalo Sebastian DO PCP: Dr. Annmarie Elkins MD Status:ADM I N Location: [place] [address] Assessment & Plan Assessment/Plan (1) COPD with acute exacerbation: (2) Acute hypoxic respiratory failure: PLAN: Plan RECOMMENDATIONS: 1. Continue to wean FiO2 as tolerated. 2. Continue empiric antibiotics, bronchodilators and steroids. 3. Awaiting results of echocardiogram. 4. Hold on diuretics given interval increase in creatinine. 5. Continue appropriate DVT prophylaxis. 6. Continue nicotine replacement therapy. 7. Aggressive medical management of underlying anxiety. IMPRESSIONS: 1. Acute respiratory failure with hypoxemia and hypercapnia Unclear precipitating etiology. CTA chest showed no evidence for pulmonary embolism. There was no evidence of a focal infiltrate to suggest pneumonia. Echocardiogram is currently pending. I would recommend holding on administration of diuretics given interval increasing creatinine. Respiratory viral panel was negative. The patient does have evidence of end-stage lung disease based upon pulmonary function studies completed last month. It is certainly plausible that the patient's anxiety may have also contributed to her acute decompensation with increasing respiratory rate leading to worsening air trapping. The patient appears to have stabilized on heated high flow oxygen, which will be weaned to maintain saturations at or above 90%. It should be noted that the patient had a similar hospital admission in October 2022 in the setting of a panic attack with generalized anxiety disorder leading to acute decompensation in her respiratory status. 2. Chronic tobacco dependency/bipolar disorder/depression/anxiety/chronic pancreatitis Complicates care, management, recovery and prognosis. Continue home medicationsas indicated. This note was generated with [employer] dictation software. It may contain incorrectwords, spelling, and punctuation that were not noted in checking the note beforesigning. Subjective Subjective The patient was seen and examined at the bedside this morning. Events from the last 24 hours have been reviewed. The patient is currently afebrile, hemodynamically stable and maintaining appropriate oxygen saturations on Airvo heated high flow with an FiO2 requirement of 45%. The patient does feel somewhat improved from yesterday. Echocardiogram was completed with results pending. White count is elevated at 26,000. Creatinine has increased some to 1.57. BNP is elevated at 2014. Objective Data Objective Data The patient's most recent lab work, culture data and imaging studies have all been personally reviewed. COVID, influenza and RSV PCR's were negative. Vital Signs: Vital Signs Temp Pulse Resp BP Pulse Ox O2 Del Method O2 Flow Rate 98.2 F 77 22 H 117/58 L 92 Airvo 59 12/06/24 09:20 12/06/24 11:07 12/06/24 10:38 12/06/24 11:07 12/06/24 10:38 12/06/24 09:20 12/06/24 09:20 FiO2 45 12/06/24 10:38 Oxygen Flow Rate (L/min) 59 Oxygen Delivery Method Airvo Weight: 135 lb 5.821 oz Body Mass Index (BMI) 24.0 Intake & Output: Intake and Output for Last 24 Hours 12/05/24 12/05/24 12/06/24 00:59 23:59 23:59 Intake Total 240 / 240 100 / 100 Output Total 750 / 750 Balance 240 / 240 -650 / -650 Lab / Micro Data Attestation: I reviewed the patient's lab results. 12/06/24 07:02 12/06/24 07:02 Labs: Laboratory Results - last 24 hr 12/06/24 07:02: WBC 26.2 H, RBC 4.62, Hgb 12.6, Hct 39.6, MCV 85.7, MCH 27.3, MCHC 31.8 L, RDW Std Deviation 47.7 H, RDW Coeff of Min 15.3 H, Plt Count 260, MPV 10.5, Immature Gran % (Auto) 0.900, Neut % (Auto) 88.4 H, Lymph % (Auto) 4.5L, Kenedy % (Auto) 6.0, Eos % (Auto) 0.0, Baso % (Auto) 0.2, Absolute Neuts (auto)23.2 H, Absolute Lymphs (auto) 1.17, Nucleated RBC % 0, Diff Path Review January, Platelet Estimate A, Sodium 134, Potassium 4.9, Chloride 98, Carbon Dioxide 23.2, Anion Gap 13, BUN 44 H, Creatinine 1.57 H, Estim Creat Clear Calc 31.13 L, Est GFR (MDRD) Non-Af 37 L, BUN/Creatinine Ratio 27.8 H, Glucose 166 H,Calcium 9.3, NT pro BNP II 2014 H, Procalcitonin 0.31 H Micro: Microbiology 12/04/24 21:23 Mucosa - Nasopharyngeal Respiratory Panel (PCR) - Final 12/04/24 16:22 Mucosa - Nose SARS-CoV-2, Influenza & RSV (PCR) - Final Rhythm Strip Rhythm Strip: Sinus Tach Rate: 121 Ectopy: None Physical Exam Const alert, oriented x3 and no apparent distress General Appearance: cooperative HEENT normocephalic and head/scalp atraumatic Eyes PERRL, EOMs intact bilaterally and conjunctivae normal Neck supple General: trachea midline Chest inspection of chest normal Resp normal respiratory effort Auscultation: wheezes and diminished lung sounds Cardio regular rate and regular rhythm GI normal to inspection, nondistended, normoactive bowel sounds Extremity no clubbing, cyanosis or edema Skin no rashes or lesions noted Neuro CN's II-XII intact bilaterally, moves all extremities and no focal motor deficits Psych Mood & Affect: anxious Charges/Coding Visit Charges Inpatient E&M: 69263 Subs Hosp L2 12/06/24 113 <Electronically signed by Gonzalo Sebastian DO> Cosigner Signature (if applicable): CC: ~ Signed [facility] Work Phone: 1(270) 343-912503-11-2025 Progress note [facility] Medical Records Department [address] [place] [address] Progress Note - Salon Leader 12/06/24 1134 MR#: [id number] Acct: [id number] Name: GRACIE BANUELOS Rep #:[id number] : 1965 59 From: Gonzalo Sebastian DO PCP: Dr. Annmarie Elkins MD Status:ADM I N Location: [place] [address] Assessment & Plan Assessment/Plan (1) COPD with acute exacerbation: (2) Acute hypoxic respiratory failure: PLAN: Plan RECOMMENDATIONS: 1. Continue to wean FiO2 as tolerated. 2. Continue empiric antibiotics, bronchodilators and steroids. 3. Awaiting results of echocardiogram. 4. Hold on diuretics given interval increase in creatinine. 5. Continue appropriate DVT prophylaxis. 6. Continue nicotine replacement therapy. 7. Aggressive medical management of underlying anxiety. IMPRESSIONS: 1. Acute respiratory failure with hypoxemia and hypercapnia Unclear precipitating etiology. CTA chest showed no evidence for pulmonary embolism. There was no evidence of a focal infiltrate to suggest pneumonia. Echocardiogram is currently pending. I would recommend holding on administration of diuretics given interval increasing creatinine. Respiratory viral panel was negative. The patient does have evidence of end-stage lung disease based upon pulmonary function studies completed last month. It is certainly plausible that the patient's anxiety may havealso contributed to her acute decompensation with increasing respiratory rate leading to worsening air trapping. The patient appears to have stabilized on heated high flow oxygen, which will be weaned to maintain saturations at or above 90%. It should be noted that the patient had a similar hospital admission in October 2022 in the setting of a panic attack with generalized anxiety disorder leading to acute decompensation in her respiratory status. 2. Chronic tobacco dependency/bipolar disorder/depression/anxiety/chronic pancreatitis Complicates care, management, recovery and prognosis. Continue home medicationsas indicated. This note was generated with [employer] dictation software. It may contain incorrectwords, spelling, and punctuation that were not noted in checking the note beforesigning. Subjective Subjective The patient was seen and examined at the bedside this morning. Events from the last 24 hours have been reviewed. The patient is currently afebrile, hemodynamically stable and maintaining appropriate oxygen saturations on Airvo heated high flow with an FiO2 requirement of 45%. The patient does feel somewhat improved from yesterday. Echocardiogram was completed with results pending. White count is elevated at 26,000. Creatinine has increased some to 1.57. BNP is elevated at 2014. Objective Data Objective Data The patient's most recent lab work, culture data and imaging studies have all been personally reviewed. COVID, influenza and RSV PCR's were negative. Vital Signs: Vital Signs Temp Pulse Resp BP Pulse Ox O2 Del Method O2 Flow Rate 98.2 F 77 22 H 117/58 L 92 Airvo 59 12/06/24 09:20 12/06/24 11:07 12/06/24 10:38 12/06/24 11:07 12/06/24 10:38 12/06/24 09:20 12/06/24 09:20 FiO2 45 12/06/24 10:38 Oxygen Flow Rate (L/min) 59 Oxygen Delivery Method Airvo Weight: 135 lb 5.821 oz Body Mass Index (BMI) 24.0 Intake & Output: Intake and Output for Last 24 Hours 12/05/24 12/05/24 12/06/24 00:59 23:59 23:59 Intake Total 240 / 240 100 / 100 Output Total 750 / 750 Balance 240 / 240 -650 / -650 Lab / Micro Data Attestation: I reviewed the patient's lab results. 12/06/24 07:02 12/06/24 07:02 Labs: Laboratory Results - last 24 hr 12/06/24 07:02: WBC 26.2 H, RBC 4.62, Hgb 12.6, Hct 39.6, MCV 85.7, MCH 27.3, MCHC 31.8 L, RDW Std Deviation 47.7 H, RDW Coeff of Min 15.3 H, Plt Count 260, MPV 10.5, Immature Gran % (Auto) 0.900, Neut % (Auto) 88.4 H, Lymph % (Auto) 4.5L, Kenedy % (Auto) 6.0, Eos % (Auto) 0.0, Baso % (Auto) 0.2, Absolute Neuts (auto)23.2 H, Absolute Lymphs (auto) 1.17, Nucleated RBC % 0, Diff Path Review January,Platelet Estimate A, Sodium 134, Potassium 4.9, Chloride 98, Carbon Dioxide 23.2, Anion Gap 13, BUN44 H, Creatinine 1.57 H, Estim Creat Clear Calc 31.13 L, Est GFR (MDRD) Non-Af 37 L, BUN/CreatinineRatio 27.8 H, Glucose 166 H,Calcium 9.3, NT pro BNP II 2014 H, Procalcitonin 0.31 H Micro: Microbiology 12/04/24 21:23 Mucosa - Nasopharyngeal Respiratory Panel (PCR) - Final 12/04/24 16:22 Mucosa - Nose SARS-CoV-2, Influenza & RSV (PCR) - Final Rhythm Strip Rhythm Strip: Sinus Tach Rate: 121 Ectopy: None Physical Exam Const alert, oriented x3 and no apparent distress General Appearance: cooperative HEENT normocephalic and head/scalp atraumatic Eyes PERRL, EOMs intact bilaterally and conjunctivae normal Neck supple General: trachea midline Chest inspection of chest normal Resp normal respiratory effort Auscultation: wheezes and diminished lung sounds Cardio regular rate and regular rhythm GI normal to inspection, nondistended, normoactive bowel sounds Extremity no clubbing, cyanosis or edema Skin no rashes or lesions noted Neuro CN's II-XII intact bilaterally, moves all extremities and no focal motor deficits Psych Mood & Affect: anxious Charges/Coding Visit Charges Inpatient E&M: 71609 Subs Hosp L2 12/06/24 1138 Cosigner Signature (if applicable): CC: ~ Signed [facility]03-10-2025 Consult note Author Gonzalo Sebastian [facility] Note Date/Time December 05, 2024 1:2 4pm [facility] Medical Records Department [address] [place] [id number] Consultation - Salon Leader 12/05/24 1314 MR#: [id number] Acct: [id number] Name: GRACIE BANUELOS Rep #:[id number] : 1965 59 From: Gonzalo Sebastian DO PCP: Dr. Annmarie Elkins MD Status:ADM I N Location: [place] [address] Assessment & Plan Assessment/Plan (1) COPD with acute exacerbation: (2) Acute hypoxic respiratory failure: PLAN: Plan RECOMMENDATIONS: 1. Continue to wean FiO2 as tolerated. 2. Continue empiric antibiotics, bronchodilators and steroids. 3. Obtain echocardiogram. 4. Consider gentle diuresis as tolerated by hemodynamics and renal function. 5. Continue appropriate DVT prophylaxis. 6. Continue nicotine replacement therapy. 7. Aggressive medical management of underlying anxiety. IMPRESSIONS: 1. Acute respiratory failure with hypoxemia and hypercapnia Unclear precipitating etiology. CTA chest showed no evidence for pulmonary embolism. There was no evidence of a focal infiltrate to suggest pneumonia. Therefore, we will plan to obtain an echocardiogram and consider gentle diuresisas tolerated by hemodynamics and renal function. Viral workup was negative. The patient does have evidence of end-stage lung disease based upon pulmonary function studies completed last month. It is certainly plausible that the patient's anxiety may have also contributed to her acute decompensation with increasing respiratory rate leading to worsening air trapping. The patient appears to have stabilized on heated high flow oxygen, which will be weaned to maintain saturations at or above 90%. It should be noted that the patient had [facility] admission in October 2022 in the setting of a panic attack with generalized anxiety disorder leading to acute decompensation in her respiratory status. 2. Chronic tobacco dependency/bipolar disorder/depression/anxiety/chronic pancreatitis Complicates care, management, recovery and prognosis. Continue home medicationsas indicated. This note was generated with [employer] dictation software. It may contain incorrectwords, spelling, and punctuation that were not noted in checking the note beforesigning. HPI Consult Data Date of Consult: 12/05/24 HPI Narrative Reason for Consultation: Respiratory failure with hypoxemia and hypercapnia HPI Narrative: The patient is a 59-year-old female, with a history as outlined below, who presented to the emergency department on December 04 with dyspnea on exertion. The patient has a known history of chronic pancreatitis along with end-stage COPD onmaximum outpatient inhaler therapy. In addition, she has an extensive tobacco abuse history and continues to smoke approximately 1 pack of cigarettes per day. According to our last pulmonary medicine office visit, the patient is supposed to be using 2 to 3 L/min of supplemental oxygen. However, the patient reported to me that she only utilizes her supplemental O2 when she feels as though it is needed. On presentation to the emergency department, the patient was documented to be afebrile but was notably tachycardic and tachypneic. Laboratory evaluation was notable for a white blood cell count of 14,000. Initial ABG was notable for a pH of 7.24 with a pCO2 of 65 and pO2 of 68. Chemistry profile was unremarkable. COVID, influenza and RSV PCR's were negative. Respiratory viral panel was negative. CTA chest showed no evidence for pulmonary embolism. Incidental notewas made of a 3 mm lung nodule in the right lower lobe. However, there was no acute cardiopulmonary process. The patient was subsequently placed on scheduledbronchodilators, Levaquin and steroids. She was admitted to the progressive care unit for further management. This morning, the patient feels somewhat better. She is currently maintaining appropriate oxygen saturations on heated high flow O2. She reported an intolerance to PAP therapy, indicating that she felt as if she was being suffocated. [facility] Medical History Pancreatic stones HLD (hyperlipidemia) History of alcohol abuse Pneumonia Acute on chronic hypoxic respiratory failure Stage 3 severe COPD by GOLD classification Asthma COPD (chronic obstructive pulmonary disease) Arthritis History of back problems Anxiety and depression Chronic pancreatitis HPV (human papilloma virus) infection Anemia Tobacco abuse GERD (gastroesophageal reflux disease) Benign hypertension Home Medications ?Medication ?Instructions ?Recorded ?Last Taken ?Type cholecalciferol (vitamin D3) 50 50 mcg PO DAILY SUPPLE MENT 12/29/18 10/31/22 History mcg (2,000 unit) capsule pantoprazole 40 mg tablet,delayed 40 mg PO DAILY GERD 08/12/20 10/31/22 History release aripiprazole 5 mg tablet (Abilify) 5 mg PO DAILY mood 01/22/21 10/31/22 History hydroxyzine pamoate 25 mg capsule 25 mg PO QHS SLEEP 0 06/12/21 01/01/24 History mirtazapine 45 mg tablet 45 mg PO QHS sleep 01/16/22 01/01/24 History simvastatin 20 mg tablet 20 mg PO QHS cholesterol 01/1801/01/24 History hydrochlorothiazide 12.5 mg capsule 12.[address] 30 days #30 01/05/24 Unknown Rx caps metoprolol tartrate 25 mg tablet 25 mg PO BID 30 days #60 tabs 01/05/24 Unknown Rx amlodipine 10 mg tablet 5 mg PO DAILY 01/26/24 Unkno wn History ipratropium 0.5 mg-albuterol 3 mg 3 ml inhalation Q4H PRN shortness 01/26/24 Unknown Rx (2.5 mg base)/3 mL nebulization of breath or wheezing #90 mL soln lisinopril 10 mg tablet 10 mg PO QDAY 01/26/24 Unkno wn History albuterol sulfate 90 mcg/actuation 2 puff inhalation Q 4H PRN 05/11/24 Unknown Rx aerosol inhaler (Ventolin HFA) shortness of breath or wheezing #18 grams lorazepam 0.5 mg tablet 0.5 mg PO BID 05/11/24 Unkno wn History fluticasone fur. 200 mcg-umeclid 1 inh inhalation NILAY Y #3 ea 08/29/24 Unknown Rx 62.5 mcg-vilant 25 mcg inhalat.powder (Trelegy Ellipta) Allergy/AdvReac Type Severity Reaction Status Date / Time clindamycin Allergy Intermediate Hives Verified 12/04/24 15:55 Penicillins Allergy Hives Verified 12/04/24 15:55 sulfamethoxazole (From Allergy Other Verified 12/04/24 15:55 Bactrim) trimethoprim (From Bactrim) Allergy Other Verified 12/04/24 15:55 hydrocodone (From Bode) AdvReac Itching Verified 12/04/24 15:55 Family History Mother Diabetes Hypertension Heart disease High cholesterol Arthritis Thyroid disorder Brother Hypertension Sister Cancer cervical Thyroid disorder Father Kidney disease Daughter Thyroid disorder Family History no significant family his Surgical History History of tubal ligation History of colonoscopy History of appendectomy Surgical History no surgical history Social History household members: family Smoking Status: Heavy Smoker (>10/day) Tobacco: How many years used: 30 second hand exposure: Yes alcohol intake: former details: Sober since 2020. substance use type: does not use caffeine: Yes ROS ROS Narrative 10 systems were reviewed with pertinent positives as noted in the HPI above. Physical Exam Const alert and no apparent distress Constitutional Narrative: Family is present at the bedside. General Appearance: cooperative HEENT normocephalic and head/scalp atraumatic Eyes PERRL, EOMs intact bilaterally and conjunctivae normal Neck supple General: trachea midline Chest inspection of chest normal Resp normal respiratory effort Auscultation: wheezes and diminished lung sounds Cardio regular rate and regular rhythm GI normal to inspection, nondistended, normoactive bowel sounds Extremity no clubbing, cyanosis or edema Skin no rashes or lesions noted Neuro CN's II-XII intact bilaterally, moves all extremities and no focal motor deficits Psych Mood & Affect: anxious Lab / Micro Data 12/05/24 05:28 12/05/24 05:28 Labs: Laboratory Results - last 24 hr 12/04/24 16:22: WBC 14.1 H, RBC 5.24, Hgb 14.1, Hct 43.7, MCV 83.4, MCH 26.9 L, MCHC 32.3, RDW Std Deviation 44.6 H, RDW Coeff of Min 14.7 H, Plt Count 271, MPV10.2, Immature Gran % (Auto) 0.800, Neut % (Auto) 80.5 H, Lymph % (Auto) 6.8 L, Kenedy % (Auto) 10.4 H, Eos % (Auto) 0.6, Baso % (Auto) 0.9, Absolute Neuts (auto)11.4 H, Absolute Lymphs (auto) 0.96, Nucleated RBC % 0, Sodium 137, Potassium 4.2, Chloride 99, Carbon Dioxide 24.6, Anion Gap 13, BUN 10, Creatinine 0.92, Estim Creat Clear Calc 53.12, Est GFR (MDRD) Non-Af 71, BUN/Creatinine Ratio 10.4, Glucose 118 H, Calcium 9.2, Lipase 25 12/05/24 05:28: WBC 16.9 H, RBC 4.61, Hgb 12.2, Hct 39.2, MCV 85.0, MCH 26.5 L, MCHC 31.1 L, RDW Std Deviation 46.7 H, RDW Coeff of Min 14.9 H, Plt Count 250, MPV 10.9, Immature Gran % (Auto) 1.400 H, Neut % (Auto) 89.0 H, Lymph % (Auto) 5.1 L, Kenedy % (Auto) 4.0, Eos % (Auto) 0.1, Baso % (Auto) 0.4, Absolute Neuts (auto) 15.1 H, Absolute Lymphs (auto) 0.86, Nucleated RBC % 0, Sodium 134, Potassium 4.8, Chloride 97 L, Carbon Dioxide 21.0, Anion Gap 16 H, BUN 19, Creatinine 1.37 H, Estim Creat Clear Calc 35.67 L, Est GFR (MDRD) Non-Af 44 L, BUN/Creatinine Ratio 14.0, Glucose 144 H, Calcium 6.7 L, Phosphorus 6.2 H, Magnesium 2.0, Total Bilirubin 0.18, AST 62 H, ALT 39 H, Alkaline Phosphatase 149 H, Total Protein 7.0, Albumin 3.8, Globulin 3.2, Albumin/Globulin Ratio 1.2 Micro: Microbiology 12/04/24 21:23 Mucosa - Nasopharyngeal Respiratory Panel (PCR) - Final 12/04/24 16:22 Mucosa - Nose SARS-CoV-2, Influenza & RSV (PCR) - Final ABG Data ABG results: ABG 12/04/24 12/05/24 12/05/24 19:00 08:08 10:46 Specimen Type ART ART ART Sample Site R Radial R Radial R Radial pH 7.24 L 7.27 L 7.24 L Bicarbonate Actual 28.1 H 23.8 26.4 H Total CO2 30 25 28 Base Excess 1 -3 L -1 O2 Saturation 89 L 85 L 89 L O2 % 5.0 45.0 ABG pCO2 65.4 H 51.6 H 61.0 H ABG pO2 68 L 57 L 68 L Sergei Test Positive Positive Respiration Rate 14 O2 Delivery Device Cannula BiPAP Not entered Vent Mode Not entered Not entered Not entered Clinical Comments 425 60 75 Rhythm Strip Rhythm Strip: Sinus Tach Rate: 121 Ectopy: None Imaging Radiology Impression Chest X-Ray 12/04/24 16:06 IMPRESSION: No acute airspace abnormality. Emphysema. Reading Location: [facility] Chest CTA 12/04/24 17:50 IMPRESSION: 1. No acute process. 2. Emphysema and coronary artery disease. 3. 3 mm pulmonary nodule in the right lower lobe. [address] follow-up recommended per Fleischner criteria. 4. 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 One or more dose reduction techniques were used (e.g., Automated exposure control, adjustment of the mA and/or kV according to patient size, use of iterative reconstruction technique). Reading Location: [facility] Charges/Coding Visit Charges Inpatient E&M: 30395 Init Hosp L3 12/05/24 1324 <Electronically signed by Gonzalo Sebastian DO> Cosigner Signature (if applicable): CC: Dr. Annmarie Elkins MD~ Signed [facility] Work Phone: [phone] 153-913603-10-2025 Consult note [facility] Medical Records Department [address] [place] [address] Consultation - Salon Leader 12/05/24 1314 MR#: [id number] Acct: [id number] Name: GRACIE BANUELOS Rep #:[id number] : 1965 59 From: Gonzalo Sebastian DO PCP: Dr. Annmarie Elkins MD Status:ADM I N Location: [place] [address] Assessment & Plan Assessment/Plan (1) COPD with acute exacerbation: (2) Acute hypoxic respiratory failure: PLAN: Plan RECOMMENDATIONS: 1. Continue to wean FiO2 as tolerated. 2. Continue empiric antibiotics, bronchodilators and steroids. 3. Obtain echocardiogram. 4. Consider gentle diuresis as tolerated by hemodynamics and renal function. 5. Continue appropriate DVT prophylaxis. 6. Continue nicotine replacement therapy. 7. Aggressive medical management of underlying anxiety. IMPRESSIONS: 1. Acute respiratory failure with hypoxemia and hypercapnia Unclear precipitating etiology. CTA chest showed no evidence for pulmonary embolism. There was no evidence of a focal infiltrate to suggest pneumonia. Therefore, we will plan to obtain an echocardiogram and consider gentle diuresisas tolerated by hemodynamics and renal function. Viral workup was neg ative. The patient does have evidence of end-stage lung disease based upon pulmonary function studies completed last month. It is certainly plausible that the patient's anxiety may have also contributed to her acute decompensation with increasing respiratory rate leading to worsening air trapping. The patient appears to have stabilized on heated high flow oxygen, which will be weaned to maintain saturations at or above 90%. It should be noted that the patient had asimilar hospital admission in October 2022 in the setting of a panic attack with generalized anxiety disorder leading to acute decompensation in her respiratory status. 2. Chronic tobacco dependency/bipolar disorder/depression/anxiety/chronic pancreatitis Complicates care, management, recovery and prognosis. Continue home medicationsas indicated. This note was generated with [employer] software. It may contain incorrectwords, spelling, and punctuation that were not noted in checking the note beforesigning. HPI Consult Data Date of Consult: 12/05/24 HPI Narrative Reason for Consultation: Respiratory failure with hypoxemia and hypercapnia HPI Narrative: The patient is a 59-year-old female, with a history as outlined below, who presented to the emergency department on December 04 with dyspnea on exertion. The patient has a known history of chronic pancreatitis along with end-stage COPD onmaximum outpatient inhaler therapy. In addition, she has an extensive tobacco abuse history and continues to smoke approximately 1 pack of cigarettes per day. According to our last pulmonary medicine office visit, the patient is supposed to be using 2 to 3 L/min ofsupplemental oxygen. However, the patient reported to me that she only utilizes her supplemental O2when she feels as though it is needed. On presentation to the emergency department, the patient was documented to be afebrile but was notably tachycardic and tachypneic. Laboratory evaluation was notable for a white blood cell count of 14,000. Initial ABG was notable for a pH of 7.24 with a pCO2 of 65 and pO2 of 68. Chemistry profile was unremarkable. COVID, influenza and RSV PCR's were negative. Respiratory viral panel was negative. CTA chest showed no evidence for pulmonary embolism. Incidental notewas made of a 3 mm lung nodule in the right lower lobe. However, there was no acute cardiopulmonary process. The patient was subsequently placed on scheduledbronchodilators, Levaquin and steroids. She was admitted to the progressivecare unit for further management. This morning, the patient feels somewhat better. She is currently maintaining appropriate oxygen saturations on heated high flow O2. She reported an intolerance to PAP therapy, indicating that she felt as if she was being suffocated. [facility] Medical History Pancreatic stones HLD (hyperlipidemia) History of alcohol abuse Pneumonia Acute on chronic hypoxic respiratory failure Stage 3 severe COPD by GOLD classification Asthma COPD (chronic obstructive pulmonary disease) Arthritis History of back problems Anxiety and depression Chronic pancreatitis HPV (human papilloma virus) infection Anemia Tobacco abuse GERD (gastroesophageal reflux disease) Benign hypertension Home Medications ?Medication ?Instructions ?Recorded ?Last Taken ?Type cholecalciferol (vitamin D3) 50 50 mcg PO DAILY SUPPLE MENT 12/29/18 10/31/22 History mcg (2,000 unit) capsule pantoprazole 40 mg tablet,delayed 40 mg PO DAILY GERD 08/12/20 10/31/22 History release aripiprazole 5 mg tablet (Abilify) 5 mg PO DAILY mood 01/22/21 10/31/22 History hydroxyzine pamoate 25 mg capsule 25 mg PO QHS SLEEP 0 06/12/21 01/01/24 History mirtazapine 45 mg tablet 45 mg PO QHS sleep 01/16/22 01/01/24 History simvastatin 20 mg tablet 20 mg PO QHS cholesterol 01/1801/01/24 History hydrochlorothiazide 12.5 mg capsule 12.[address] 30 days #30 01/05/24 Unknown Rx caps metoprolol tartrate 25 mg tablet 25 mg PO BID 30 days #60 tabs 01/05/24 Unknown Rx amlodipine 10 mg tablet 5 mg PO DAILY 01/26/24 Unkno wn History ipratropium 0.5 mg-albuterol 3 mg 3 ml inhalation Q4H PRN shortness 01/26/24 Unknown Rx (2.5 mg base)/3 mL nebulization of breath or wheezing #90 mL soln lisinopril 10 mg tablet 10 mg PO QDAY 01/26/24 Unkno wn History albuterol sulfate 90 mcg/actuation 2 puff inhalation Q 4H PRN 05/11/24 Unknown Rx aerosol inhaler (Ventolin HFA) shortness of breath or wheezing #18 grams lorazepam 0.5 mg tablet 0.5 mg PO BID 05/11/24 Unkno wn History fluticasone fur. 200 mcg-umeclid 1 inh inhalation NILAY Y #3 ea 08/29/24 Unknown Rx 62.5 mcg-vilant 25 mcg inhalat.powder (Trelegy Ellipta) Allergy/AdvReac Type Severity Reaction Status Date / Time clindamycin Allergy Intermediate Hives Verified 12/04/24 15:55 Penicillins Allergy Hives Verified 12/04/24 15:55 sulfamethoxazole (From Allergy Other Verified 12/04/24 15:55 Bactrim) trimethoprim (From Bactrim) Allergy Other Verified 12/04/24 15:55 hydrocodone (From Bode) AdvReac Itching Verified 12/04/24 15:55 Family History Mother Diabetes Hypertension Heart disease High cholesterol Arthritis Thyroid disorder Brother Hypertension Sister Cancer cervical Thyroid disorder Father Kidney disease Daughter Thyroid disorder Family History no significant family his Surgical History History of tubal ligation History of colonoscopy History of appendectomy Surgical History no surgical history Social History household members: family Smoking Status: Heavy Smoker (>10/day) Tobacco: How many years used: 30 second hand exposure: Yes alcohol intake: former details: Sober since 2020. substance use type: does not use caffeine: Yes ROS ROS Narrative 10 systems were reviewed with pertinent positives as noted in the HPI above. Physical Exam Const alert and no apparent distress Constitutional Narrative: Family is present at the bedside. General Appearance: cooperative HEENT normocephalic and head/scalp atraumatic Eyes PERRL, EOMs intact bilaterally and conjunctivae normal Neck supple General: trachea midline Chest inspection of chest normal Resp normal respiratory effort Auscultation: wheezes and diminished lung sounds Cardio regular rate and regular rhythm GI normal to inspection, nondistended, normoactive bowel sounds Extremity no clubbing, cyanosis or edema Skin no rashes or lesions noted Neuro CN's II-XII intact bilaterally, moves all extremities and no focal motor deficits Psych Mood & Affect: anxious Lab / Micro Data 12/05/24 05:28 12/05/24 05:28 Labs: Laboratory Results - last 24 hr 12/04/24 16:22: WBC 14.1 H, RBC 5.24, Hgb 14.1, Hct 43.7, MCV 83.4, MCH 26.9 L, MCHC 32.3, RDW Std Deviation 44.6 H, RDW Coeff of Min 14.7 H, Plt Count 271, MPV10.2, Immature Gran % (Auto) 0.800, Neut % (Auto) 80.5 H, Lymph % (Auto) 6.8 L, Kenedy % (Auto) 10.4 H, Eos % (Auto) 0.6, Baso % (Auto) 0.9, Absolute Neuts (auto)11.4 H, Absolute Lymphs (auto) 0.96, Nucleated RBC % 0, Sodium 137, Potassium 4.2, Chloride 99, Carbon Dioxide 24.6, Anion Gap 13, BUN 10, Creatinine 0.92, Estim Creat Clear Calc 53.12, Est GFR (MDRD) Non-Af 71, BUN/Creatinine Ratio 10.4, Glucose 118 H, Calcium 9.2, Lipase 25 12/05/24 05:28: WBC 16.9 H, RBC 4.61, Hgb 12.2, Hct 39.2, MCV 85.0, MCH 26.5 L, MCHC 31.1 L, RDW Std Deviation 46.7 H, RDW Coeff of Min 14.9 H, Plt Count 250, MPV 10.9, Immature Gran % (Auto) 1.400 H, Neut % (Auto) 89.0 H, Lymph % (Auto) 5.1 L, Kenedy % (Auto) 4.0, Eos % (Auto) 0.1, Baso % (Auto) 0.4, Absolute Neuts (auto) 15.1 H, Absolute Lymphs (auto) 0.86, Nucleated RBC % 0, Sodium 134, Potassium 4.8, Chloride 97 L, Carbon Dioxide 21.0, Anion Gap 16 H, BUN 19, Creatinine 1.37 H, Estim Creat Clear Calc 35.67 L, Est GFR (MDRD) Non-Af 44 L, BUN/Creatinine Ratio 14.0, Glucose 144 H, Calcium 6.7 L, Phosphorus 6.2 H, Magnesium 2.0, Total Bilirubin 0.18, AST 62 H, ALT 39 H, Alkaline Phosphatase 14 9 H, Total Protein 7.0, Albumin 3.8, Globulin 3.2, Albumin/Globulin Ratio 1.2 Micro: Microbiology 12/04/24 21:23 Mucosa - Nasopharyngeal Respiratory Panel (PCR) - Final 12/04/24 16:22 Mucosa - Nose SARS-CoV-2, Influenza & RSV (PCR) - Final ABG Data ABG results: ABG 12/04/24 12/05/24 12/05/24 19:00 08:08 10:46 Specimen Type ART ART ART Sample Site R Radial R Radial R Radial pH 7.24 L 7.27 L 7.24 L Bicarbonate Actual 28.1 H 23.8 26.4 H Total CO2 30 25 28 Base Excess 1 -3 L -1 O2 Saturation 89 L 85 L 89 L O2 % 5.0 45.0 ABG pCO2 65.4 H 51.6 H 61.0 H ABG pO2 68 L 57 L 68 L Sergei Test Positive Positive Respiration Rate 14 O2 Delivery Device Cannula BiPAP Not entered Vent Mode Not entered Not entered Not entered Clinical Comments 425 60 75 Rhythm Strip Rhythm Strip: Sinus Tach Rate: 121 Ectopy: None Imaging Radiology Impression Chest X-Ray 12/04/24 16:06 IMPRESSION: No acute airspace abnormality. Emphysema. Reading Location: [facility] Chest CTA 12/04/24 17:50 IMPRESSION: 1. No acute process. 2. Emphysema and coronary artery disease. 3. 3 mm pulmonary nodule in the right lower lobe. [address] follow-up recommended per Fleischner criteria. 4. 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 One or more dose reduction techniques were used (e.g., Automated exposure control, adjustment of the mA and/or kV according to patient size, use of iterative reconstruction technique). Reading Location: [facility] Charges/Coding Visit Charges Inpatient E&M: 77028 Init Hosp L3 12/05/24 1324 Cosigner Signature (if applicable): CC: Dr. Annmarie Elkins MD~ Signed [facility]03-10-2025 Telephone encounter Note* Telephone Encounter - Juan Senior APRN.CNP - 12/05/2024 10:49 AM EDT Called to follow up with patient after EUS on 12/01. No answer, left voicemail with call back number. [facility] Work Phone: [phone]) 544-337003-10-2025 Miscellaneous Notes* Telephone Encounter - Juan Senior APRN.CNP - 12/05/2024 10:49 AM EDT Called to follow up with patient after EUS on 12/01. No answer, left voicemail with call back number. [facility] History and physical note Author Aleta Aguayo [facility] Note Date/Time December 04, 2024 9:09 pm [facility] Medical Records Department [address] [place] [address] H&P Exam - Hospitalist 12/04/24 1804 MR#: [id number] Acct: [id number] Name: GRACIE BANUELOS Rep #:[id number] : 1965 59 From: Aleta Aguayo DO PCP: Dr. Annmarie Elkins MD Status:ADM I N Location: [place] [address] HPI - General General Date of Admission: 12/04/24 Date of Service: 12/04/24 Chief Complaint: Shortness of Breath HPI Narrative GRACIE BANUELOS, is a 59 F who presented to the ED at [facility] on 12/04/2024 with the chief complaint of SOB. Pt has a h/o chronic pancreatitis and had a pancreatic block done at [facility] Thu of last week as a an outpatient with same day discharge. At baseline, she utilizes oxygen 2 L on a as needed basis. She reported that about Thursday of last week. Since then, she has had increased SOB and cough productive of sputum. She stated that her cough is worse than her baseline and now productive of sputum which is not typical for her. She states the sputum isthick and white. She denies any fever or chills. She has had no nausea or vomiting. No diarrhea. Indicates that she is still waiting abdominal pain despite procedure done at [facility] and has follow-up with them upcoming. She has followed up with pulmonary medicine here previously and her FEV1 on [facility] recent PFTs is 33% predicted. Again she typically wears as needed oxygen at 2 L however at home her oxygen saturation on 2 L was 76% so she came the emergency department for further evaluation. She does report she has noted somewheezing at home. She still smokes about half a pack of cigarettes daily however has been cutting back. Vital signs on presentation the emergency department showed a temperature of 97.2, heart rate 126, respiratory rate 24, blood pressure was 160/102 and pulse ox was 76% on a nonrebreather at 15 L/min. CBC on presentation showed a leukocytosis white count of 14.1 and a left shift with an 80.5% neutrophilia. Chemistry panel is unremarkable. Lipase was normal. I asked an ABG be drawn and it showed a pH of 7.24 with a pCO2 of 65.4 and a pO2 of 68. EKG showed sinus tachycardia. Chest x-ray showed only emphysematous changes. CTA of the chest was performed and showed no acute processes but emphysematous changes and coronary artery disease with a 3 mm pulmonary nodule in the right lower lobe as well as chronic severe stenosis/occlusion of the proximal left subclavian artery. She is doing nebulizers and aerosols emergency department request for admission was made. [facility] Medical History Pancreatic stones HLD (hyperlipidemia) History of alcohol abuse Pneumonia Acute on chronic hypoxic respiratory failure Stage 3 severe COPD by GOLD classification Asthma COPD (chronic obstructive pulmonary disease) Arthritis History of back problems Anxiety and depression Chronic pancreatitis HPV (human papilloma virus) infection Anemia Tobacco abuse GERD (gastroesophageal reflux disease) Benign hypertension Home Medications ?Medication ?Instructions ?Recorded ?Last Taken ?Type cholecalciferol (vitamin D3) 50 50 mcg PO DAILY SUPPLE MENT 12/29/18 10/31/22 History mcg (2,000 unit) capsule pantoprazole 40 mg tablet,delayed 40 mg PO DAILY GERD 08/12/20 10/31/22 History release aripiprazole 5 mg tablet (Abilify) 5 mg PO DAILY mood 01/22/21 10/31/22 History hydroxyzine pamoate 25 mg capsule 25 mg PO QHS SLEEP 0 06/12/21 01/01/24 History mirtazapine 45 mg tablet 45 mg PO QHS sleep 01/16/22 01/01/24 History simvastatin 20 mg tablet 20 mg PO QHS cholesterol 01/1801/01/24 History hydrochlorothiazide 12.5 mg capsule 12.[address] 30 days #30 01/05/24 Unknown Rx caps metoprolol tartrate 25 mg tablet 25 mg PO BID 30 days #60 tabs 01/05/24 Unknown Rx amlodipine 10 mg tablet 5 mg PO DAILY 01/26/24 Unkno wn History ipratropium 0.5 mg-albuterol 3 mg 3 ml inhalation Q4H PRN shortness 01/26/24 Unknown Rx (2.5 mg base)/3 mL nebulization of breath or wheezing #90 mL soln lisinopril 10 mg tablet 10 mg PO QDAY 01/26/24 Unkno wn History albuterol sulfate 90 mcg/actuation 2 puff inhalation Q 4H PRN 05/11/24 Unknown Rx aerosol inhaler (Ventolin HFA) shortness of breath or wheezing #18 grams lorazepam 0.5 mg tablet 0.5 mg PO BID 05/11/24 Unkno wn History fluticasone fur. 200 mcg-umeclid 1 inh inhalation NILAY Y #3 ea 08/29/24 Unknown Rx 62.5 mcg-vilant 25 mcg inhalat.powder (Trelegy Ellipta) Allergy/AdvReac Type Severity Reaction Status Date / Time clindamycin Allergy Intermediate Hives Verified 12/04/24 15:55 Penicillins Allergy Hives Verified 12/04/24 15:55 sulfamethoxazole (From Allergy Other Verified 12/04/24 15:55 Bactrim) trimethoprim (From Bactrim) Allergy Other Verified 12/04/24 15:55 hydrocodone (From Bode) AdvReac Itching Verified 12/04/24 15:55 Family History Mother Diabetes Hypertension Heart disease High cholesterol Arthritis Thyroid disorder Brother Hypertension Sister Cancer cervical Thyroid disorder Father Kidney disease Daughter Thyroid disorder Family History no significant family his Surgical History History of tubal ligation History of colonoscopy History of appendectomy Surgical History no surgical history Social History household members: family Smoking Status: Heavy Smoker (>10/day) Tobacco: How many years used: 30 second hand exposure: Yes alcohol intake: former details: Sober since 2020. substance use type: does not use caffeine: Yes Vital Signs Vital Signs Vital Signs: 12/04/24 15:51 12/04/24 15:54 12/04/24 16:02 Temperature 97.2 F L 97.2 F L Temperature Source Temporal Temporal Pulse Rate 126 H 126 H Respiratory Rate 24 H 24 H Respiratory Effort Short of Breath Respiratory Pattern Blood Pressure 160/102 H 160/102 H Blood Pressure Mean 121 121 Pulse Ox 76 76 Oxygen Delivery Method Non-Rebreather @ 15L/min Nasal Cannula Nasal Cannula Oxygen Flow Rate (L/min) 2 4 12/04/24 16:07 12/04/24 16:43 12/04/24 16:54 Temperature 97.8 F Temperature Source Temporal Pulse Rate 116 H 114 H Respiratory Rate 21 H 26 H Respiratory Effort Respiratory Pattern Tachypnea Blood Pressure 148/62 H Blood Pressure Mean 90 Pulse Ox 90 91 Oxygen Delivery Method CPAP Oxygen Flow Rate (L/min) 12/04/24 17:12 Temperature 97.8 F Temperature Source Temporal Pulse Rate 116 H Respiratory Rate 27 H Respiratory Effort Respiratory Pattern Blood Pressure 146/77 H Blood Pressure Mean 100 Pulse Ox 91 Oxygen Delivery Method Oxygen Flow Rate (L/min) Weight Weight: 58.967 kg Body Mass Index (BMI) 23.0 Results Lab / Micro Data 12/04/24 16:22 12/04/24 16:22 Labs: Laboratory Results - last 24 hr 12/04/24 16:22: WBC 14.1 H, RBC 5.24, Hgb 14.1, Hct 43.7, MCV 83.4, MCH 26.9 L, MCHC 32.3, RDW Std Deviation 44.6 H, RDW Coeff of Min 14.7 H, Plt Count 271, MPV10.2, Immature Gran % (Auto) 0.800, Neut % (Auto) 80.5 H, Lymph % (Auto) 6.8 L, Kenedy % (Auto) 10.4 H, Eos % (Auto) 0.6, Baso % (Auto) 0.9, Absolute Neuts (auto)11.4 H, Absolute Lymphs (auto) 0.96, Nucleated RBC % 0, Sodium 137, Potassium 4.2, Chloride 99, Carbon Dioxide 24.6, Anion Gap 13, BUN 10, Creatinine 0.92, Estim Creat Clear Calc 53.12, Est GFR (MDRD) Non-Af 71, BUN/Creatinine Ratio 10.4, Glucose 118 H, Calcium 9.2 Micro: Microbiology 12/04/24 16:22 Mucosa - Nose SARS-CoV-2, Influenza & RSV (PCR) - Final Rhythm Strip Rhythm Strip: Sinus Tach Rate: 121 Ectopy: None Imaging Radiology Impression Chest X-Ray 12/04/24 16:06 IMPRESSION: No acute airspace abnormality. Emphysema. Reading Location: [facility] Assessment & Plan Assessment/Plan (1) Acute hypoxic respiratory failure: (2) COPD with acute exacerbation: (3) Pulmonary nodule: (4) Stenosis of left subclavian artery: PLAN: Plan Acute hypoxic and hypercapnic respiratory failure secondary to acute exacerbation of COPD -patient requiring 5 L to 6 L supplemental nasal cannula keep sats greater than 88% -At baseline patient only wears 2 L as needed which she does not frequently -Was tachycardic and tachypneic on presentation -ABG shows acidosis with pH of 7.24 that is respiratory in nature -Start stat BiPAP -Low-dose Ativan as patient is concerned she will be able to tolerate -Did explain never really need to try to prevent further respiratory decline -Solu-Medrol 40 every 8 -Mucinex 1200 p.o. twice daily -Will give Levaquin 750 daily with change in sputum and COPD severity at baseline she is at high risk for pseudomonal infection -FEV1 on most recent PFTs from several years ago was 33% -Check strep pneumo and Legionella antigen -Check sputum culture -Aggressive pulmonary toilet -Acapella 10 times every 2 hours while awake -I-S -Will need outpatient follow-up at discharge with pulmonary medicine -Check ambulatory pulse ox prior to discharge Right lower lobe pulmonary nodule -3 mm -Will need follow-up CT prophylaxis or criteria -Outpatient follow-up with pulmonary after discharge Left subclavian artery stenosis -Recommend right sided blood pressures to be taken for accuracy -Would recommend outpatient follow-up after discharge Chronic pancreatitis -Follows at [facility] -Seeing pain management -Recommend outpatient follow-up as previously scheduled Essential hypertension/hyperlipidemia -Continue home amlodipine -Continue home HCTZ -Continue home lisinopril -continue home metoprolol -Continue home statin GERD -Continue home PPI COPD -Patient is not continuously dependent on oxygen at baseline and requires 2.5 L as needed -Hold home inhalers next-treatment as above -Follow-up as an outpatient as recommended at discharge Anxiety/depression -Continue home scheduled lorazepam -Continue home Abilify DVT prophylaxis -Enoxaparin 40 mg daily CODE STATUS -Full code as verified at the time of admission Charges/Coding Visit Charges Inpatient E&M: 76230 Init Hosp L2 12/04/242108 <Electronically signed by Aleta Aguayo DO> Cosigner Signature (if applicable): CC: Dr. Annmarie Elkins MD; Dr. Aleta Aguayo DO~ Signed [facility] Work Phone: 1(883) 788-150503-09-2025 History and physical note [facility] Medical Records Department [address] [place] [address] H&P Exam - Hospitalist 12/04/24 1804 MR#: [id number] Acct: [id number] Name: GRACIE BANUELOS Rep #:[id number] : 1965 59 From: Aleta Aguayo DO PCP: Dr. Annmarie Elkins MD Status:ADM I N Location: [address] HPI - General General Date of Admission: 12/04/24 Date of Service: 12/04/24 Chief Complaint: Shortness of Breath HPI Narrative GRACIE BANUELOS, is a 59 F who presented to the ED at [facility] on 12/04/2024 with the chief complaint of SOB.Pt has a h/o chronic pancreatitis and had a pancreatic block done at [facility] Thu of last week as a an outpatient with same day discharge. At baseline, she utilizes oxygen 2 L on a as needed basis. She reported that about Thursday of last week. Since then, she has had increased SOB and cough productive ofsputum. She stated that her cough is worse than her baseline and now productive of sputum which is not typical for her. She states the sputum isthick and white. She denies any fever or chills. She has had no nausea or vomiting. No diarrhea. Indicates that she is still waiting abdominal pain despiteprocedure done at [facility] and has follow-up with them upcoming. She has followed up with pulmonary medicine here previously and her FEV1 on [facility] recent PFTs is 33% predicted. Again she typically wears as needed oxygen at 2 L however at home her oxygen saturation on 2 L was 76% so she came the emergency department for further evaluation. She does report she has noted somewheezing at home. She still smokes about half a pack of cigarettes daily however has been cutting back. Vital signs on presentation the emergency department showed a temperature of 97.2, heart rate 126, respiratory rate 24, blood pressure was 160/102 and pulse ox was 76% on a nonrebreather at 15 L/min.CBC on presentation showed a leukocytosis white count of 14.1 and a left shift with an 80.5% neutrophilia. Chemistry panel is unremarkable. Lipase was normal. I asked an ABG be drawn and it showed a pH of 7.24 with a pCO2 of 65.4 and a pO2 of 68. EKG showed sinus tachycardia. Chest x-ray showed only emphysematous changes. CTA of the chest was performed and showed no acute processes but emphysematous changes and coronary artery disease with a 3 mm pulmonary nodule in the right lower lobe as wellas chronic severe stenosis/occlusion of the proximal left subclavian artery. She is doing nebulizers and aerosols emergency department request for admission was made. [facility] Medical History Pancreatic stones HLD (hyperlipidemia) History of alcohol abuse Pneumonia Acute on chronic hypoxic respiratory failure Stage 3 severe COPD by GOLD classification Asthma COPD (chronic obstructive pulmonary disease) Arthritis History of back problems Anxiety and depression Chronic pancreatitis HPV (human papilloma virus) infection Anemia Tobacco abuse GERD (gastroesophageal reflux disease) Benign hypertension Home Medications ?Medication ?Instructions ?Recorded ?Last Taken ?Type cholecalciferol (vitamin D3) 50 50 mcg PO DAILY SUPPLE MENT 12/29/18 10/31/22 History mcg (2,000 unit) capsule pantoprazole 40 mg tablet,delayed 40 mg PO DAILY GERD 08/12/20 10/31/22 History release aripiprazole 5 mg tablet (Abilify) 5 mg PO DAILY mood 01/22/21 10/31/22 History hydroxyzine pamoate 25 mg capsule 25 mg PO QHS SLEEP 0 06/12/21 01/01/24 History mirtazapine 45 mg tablet 45 mg PO QHS sleep 01/16/22 01/01/24 History simvastatin 20 mg tablet 20 mg PO QHS cholesterol 01/1801/01/24 History hydrochlorothiazide 12.5 mg capsule 12.[address] 30 days #30 01/05/24 Unknown Rx caps metoprolol tartrate 25 mg tablet 25 mg PO BID 30 days #60 tabs 01/05/24 Unknown Rx amlodipine 10 mg tablet 5 mg PO DAILY 01/26/24 Unkno wn History ipratropium 0.5 mg-albuterol 3 mg 3 ml inhalation Q4H PRN shortness 01/26/24 Unknown Rx (2.5 mg base)/3 mL nebulization of breath or wheezing #90 mL soln lisinopril 10 mg tablet 10 mg PO QDAY 01/26/24 Unkno wn History albuterol sulfate 90 mcg/actuation 2 puff inhalation Q 4H PRN 05/11/24 Unknown Rx aerosol inhaler (Ventolin HFA) shortness of breath or wheezing #18 grams lorazepam 0.5 mg tablet 0.5 mg PO BID 05/11/24 Unkno wn History fluticasone fur. 200 mcg-umeclid 1 inh inhalation NILAY Y #3 ea 08/29/24 Unknown Rx 62.5 mcg-vilant 25 mcg inhalat.powder (Trelegy Ellipta) Allergy/AdvReac Type Severity Reaction Status Date / Time clindamycin Allergy Intermediate Hives Verified 12/04/24 15:55 Penicillins Allergy Hives Verified 12/04/24 15:55 sulfamethoxazole (From Allergy Other Verified 12/04/24 15:55 Bactrim) trimethoprim (From Bactrim) Allergy Other Verified 12/04/24 15:55 hydrocodone (From Bode) AdvReac Itching Verified 12/04/24 15:55 Family History Mother Diabetes Hypertension Heart disease High cholesterol Arthritis Thyroid disorder Brother Hypertension Sister Cancer cervical Thyroid disorder Father Kidney disease Daughter Thyroid disorder Family History no significant family his Surgical History History of tubal ligation History of colonoscopy History of appendectomy Surgical History no surgical history Social History household members: family Smoking Status: Heavy Smoker (>10/day) Tobacco: How many years used: 30 second hand exposure: Yes alcohol intake: former details: Sober since 2020. substance use type: does not use caffeine: Yes Vital Signs Vital Signs Vital Signs: 12/04/24 15:51 12/04/24 15:54 12/04/24 16:02 Temperature 97.2 F L 97.2 F L Temperature Source Temporal Temporal Pulse Rate 126 H 126 H Respiratory Rate 24 H 24 H Respiratory Effort Short of Breath Respiratory Pattern Blood Pressure 160/102 H 160/102 H Blood Pressure Mean 121 121 Pulse Ox 76 76 Oxygen Delivery Method Non-Rebreather @ 15L/min Nasal Cannula Nasal Cannula Oxygen Flow Rate (L/min) 2 4 12/04/24 16:07 12/04/24 16:43 12/04/24 16:54 Temperature 97.8 F Temperature Source Temporal Pulse Rate 116 H 114 H Respiratory Rate 21 H 26 H Respiratory Effort Respiratory Pattern Tachypnea Blood Pressure 148/62 H Blood Pressure Mean 90 Pulse Ox 90 91 Oxygen Delivery Method CPAP Oxygen Flow Rate (L/min) 12/04/24 17:12 Temperature 97.8 F Temperature Source Temporal Pulse Rate 116 H Respiratory Rate 27 H Respiratory Effort Respiratory Pattern Blood Pressure 146/77 H Blood Pressure Mean 100 Pulse Ox 91 Oxygen Delivery Method Oxygen Flow Rate (L/min) Weight Weight: 58.967 kg Body Mass Index (BMI) 23.0 Results Lab / Micro Data 12/04/24 16:22 12/04/24 16:22 Labs: Laboratory Results - last 24 hr 12/04/24 16:22: WBC 14.1 H, RBC 5.24, Hgb 14.1, Hct 43.7, MCV 83.4, MCH 26.9 L, MCHC 32.3, RDW Std Deviation 44.6 H, RDW Coeff of Min 14.7 H, Plt Count 271, MPV10.2, Immature Gran % (Auto) 0.800, Neut % (Auto) 80.5 H, Lymph % (Auto) 6.8 L, Kenedy % (Auto) 10.4 H, Eos % (Auto) 0.6, Baso % (Auto) 0.9, Absolute Neuts (auto)11.4 H, Absolute Lymphs (auto) 0.96, Nucleated RBC % 0, Sodium 137, Potassium 4.2, Chloride 99, Carbon Dioxide 24.6, Anion Gap 13, BUN 10, Creatinine 0.92, Estim Creat Clear Calc 53.12, Est GFR (MDRD) Non-Af 71, BUN/Creatinine Ratio 10.4, Glucose 118 H, Calcium 9.2 Micro: Microbiology 12/04/24 16:22 Mucosa - Nose SARS-CoV-2, Influenza & RSV (PCR) - Final Rhythm Strip Rhythm Strip: Sinus Tach Rate: 121 Ectopy: None Imaging Radiology Impression Chest X-Ray 12/04/24 16:06 IMPRESSION: No acute airspace abnormality. Emphysema. Reading Location: [facility] Assessment & Plan Assessment/Plan (1) Acute hypoxic respiratory failure: (2) COPD with acute exacerbation: (3) Pulmonary nodule: (4) Stenosis of left subclavian artery: PLAN: Plan Acute hypoxic and hypercapnic respiratory failure secondary to acute exacerbation of COPD -patient requiring 5 L to 6 L supplemental nasal cannula keep sats greater than 88% -At baseline patient only wears 2 L as needed which she does not frequently -Was tachycardic and tachypneic on presentation -ABG shows acidosis with pH of 7.24 that is respiratory in nature -Start stat BiPAP -Low-dose Ativan as patient is concerned she will be able to tolerate -Did explain never really need to try to prevent further respiratory decline -Solu-Medrol 40 every 8 -Mucinex 1200 p.o. twice daily -Will give Levaquin 750 daily with change in sputum and COPD severity at baseline she is at high risk for pseudomonal infection -FEV1 on most recent PFTs from several years ago was 33% -Check strep pneumo and Legionella antigen -Check sputum culture -Aggressive pulmonary toilet -Acapella 10 times every 2 hours while awake -I-S -Will need outpatient follow-up at discharge with pulmonary medicine -Check ambulatory pulse ox prior to discharge Right lower lobe pulmonary nodule -3 mm -Will need follow-up CT prophylaxis or criteria -Outpatient follow-up with pulmonary after discharge Left subclavian artery stenosis -Recommend right sided blood pressures to be taken for accuracy -Would recommend outpatient follow-up after discharge Chronic pancreatitis -Follows at [facility] -Seeing pain management -Recommend outpatient follow-up as previously scheduled Essential hypertension/hyperlipidemia -Continue home amlodipine -Continue home HCTZ -Continue home lisinopril -continue home metoprolol -Continue home statin GERD -Continue home PPI COPD -Patient is not continuously dependent on oxygen at baseline and requires 2.5 L as needed -Hold home inhalers next-treatment as above -Follow-up as an outpatient as recommended at discharge Anxiety/depression -Continue home scheduled lorazepam -Continue home Abilify DVT prophylaxis -Enoxaparin 40 mg daily CODE STATUS -Full code as verified at the time of admission Charges/Coding Visit Charges Inpatient E&M: 36363 Init Hosp L2 12/04/242108 Cosigner Signature (if applicable): CC: Dr. Annmarie Elkins MD; Dr. Aleta Aguayo, DO~ Signed [facility]03-09-2025 Discharge summary Author Franco Inman [facility] Note Date/Time December 04, 2024 6:46 pm [facility] Medical Records Department [address] [place] [address] Emergency Department Summary 12/04/24 MR#: [id number] Acct: [id number] Name: GRACIE BANUELOS Rep #:[id number] : 1965 59 From: Franco Inman MD PCP: Dr. Annmarie Elkins MD Status:ADM I N Location: [place] [address] HPI History of Present Illness Chief Complaint: Shortness of Breath Informant: patient Onset/Context/Timing Onset: Days Context: gradual Timing: Continuous Quality: Positive for Wheezing Current Severity: Moderate Maximum Severity: Moderate Worsened by: Coughing Relieved by: Oxygen Associated Symptoms cough and white sputum Chest Pain: Positive for None Narrative Narrative: 59-year-old female history of COPD and asthma still smokes. Chronic pain management chronic pancreatitis. Recently had a pancreatic block done at the [facility] was discharged the same day. She is on 2 L oxygen at home as needed currently on 2 L she is 76% and hypoxic. States that she has been coughing with shortness of breath for the last 2 days. Has had limited nausea and vomiting. She took Zofran at home prior to arrival. States that the cough is whitish sputum. Denies any obvious exposure. Denies recent hospitalization. Denies chest pain or hemoptysis. She has been wheezing at home. She continuesto smoke. PE Risk Factors: Negative for Cancer, OCP + Smoking + > 35, Prior DVT or PE, Recent immobilization, Recent surgery or Recent travel Recent Illness/Hospitalization: No PFSH PFSH Medical History Pancreatic stones HLD (hyperlipidemia) History of alcohol abuse Pneumonia Acute on chronic hypoxic respiratory failure Stage 3 severe COPD by GOLD classification Asthma COPD (chronic obstructive pulmonary disease) Arthritis History of back problems Anxiety and depression Chronic pancreatitis HPV (human papilloma virus) infection Anemia Tobacco abuse GERD (gastroesophageal reflux disease) Benign hypertension Home Medications ?Medication ?Instructions ?Recorded ?Last Taken ?Type cholecalciferol (vitamin D3) 50 50 mcg PO DAILY SUPPLE MENT 12/29/18 10/31/22 His tory mcg (2,000 unit) capsule pantoprazole 40 mg tablet,delayed 40 mg PO DAILY GERD 08/12/20 10/31/22 History release aripiprazole 5 mg tablet (Abilify) 5 mg PO DAILY mood 01/22/21 10/31/22 History hydroxyzine pamoate 25 mg capsule 25 mg PO QHS SLEEP 0 06/12/21 01/01/24 History mirtazapine 45 mg tablet 45 mg PO QHS sleep 01/16/22 01/01/24 History simvastatin 20 mg tablet 20 mg PO QHS cholesterol 01/1801/01/24 History hydrochlorothiazide 12.5 mg capsule 12.[address] 30 days #30 01/05/24 Unknown Rx caps metoprolol tartrate 25 mg tablet 25 mg PO BID 30 days #60 tabs 01/05/24 Unknown Rx amlodipine 10 mg tablet 5 mg PO DAILY 01/26/24 Unkno wn History ipratropium 0.5 mg-albuterol 3 mg 3 ml inhalation Q4H PRN shortness 01/26/24 Unknown Rx (2.5 mg base)/3 mL nebulization of breath or wheezing #90 mL soln lisinopril 10 mg tablet 10 mg PO QDAY 01/26/24 Unkno wn History albuterol sulfate 90 mcg/actuation 2 puff inhalation Q 4H PRN 05/11/24 Unknown Rx aerosol inhaler (Ventolin HFA) shortness of breath or wheezing #18 grams lorazepam 0.5 mg tablet 0.5 mg PO BID 05/11/24 Unkno wn History fluticasone fur. 200 mcg-umeclid 1 inh inhalation NILAY Y #3 ea 08/29/24 Unknown Rx 62.5 mcg-vilant 25 mcg inhalat.powder (Trelegy Ellipta) Allergy/AdvReac Type Severity Reaction Status Date / Time clindamycin Allergy Intermediate Hives Verified 12/04/24 15:55 Penicillins Allergy Hives Verified 12/04/24 15:55 sulfamethoxazole (From Allergy Other Verified 12/04/24 15:55 Bactrim) trimethoprim (From Bactrim) Allergy Other Verified 12/04/24 15:55 hydrocodone (From Bode) AdvReac Itching Verified 12/04/24 15:55 Family History Mother Diabetes Hypertension Heart disease High cholesterol Arthritis Thyroid disorder Brother Hypertension Sister Cancer cervical Thyroid disorder Father Kidney disease Daughter Thyroid disorder Family History no significant family his Surgical History History of tubal ligation History of colonoscopy History of appendectomy Surgical History no surgical history Social History household members: family Smoking Status: Heavy Smoker (>10/day) Tobacco: How many years used: 30 second hand exposure: Yes alcohol intake: former details: Sober since 2020. substance use type: does not use caffeine: Yes ROS ROS ED ROS Narrative Cough. White sputum. Shortness of breath. Wheezing. Constitutional Constitutional ED: Denies chills or fever(s) Eyes Eyes: Denies blurry vision ENT ENT ED: Denies ear pain Cardiovascular Cardiovascular: Denies chest pain Respiratory/Chest Respiratory/Chest: Reports cough, dyspnea and sputum Gastrointestinal Gastrointestinal: Reports nausea and vomiting; Denies abdominal pain, constipation, diarrhea or melena Genitourinary Genitourinary ED: Denies dysuria or hematuria Musculoskeletal Musculoskeletal: Denies arthralgias or back pain Integumentary Denies abscess or Abrasions Neurologic Neurologic: Denies headache(s) Psychiatric Psychiatric: Denies anxiety Endocrine Endocrinology: Denies cold intolerance Hematologic/Lymphatic Hematologic/Lymphatic: Denies easy bleeding, easy bruising or lymphadenopathy Allergic/Immunologic Allergic/Immunologic ED: Denies mouth swelling, tongue swelling or urticaria EXAM Physical Exam Narrative Exam Narrative: 59-year-old female sitting upright in bed on oxygen. On 2 L she is 76%. On 5 Lcurrently she is 86%. She does not seem septic or toxic. She does have a dry cough. H EENT exam pupils round reactive light. Extra motions are intact. Moist mucous membranes. Neck nontender no JVD. No lymphadenopathy. Lungs prolonged expiratory phase. Inspiratory expiratory wheezing. No rales or rhonchi. Equal symmetric. Heart tachycardic 125 no murmur. Chest wall ribs nontender. Abdomen soft nontender. No peritoneal signs. No distention. Back nontender. Moving all 4 extremities. 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 Normal dorsi plantarflexion. Calves are nontender without edema or cords. Neurologically she is awake alert answering questions following commands. Const Vital Signs: 12/04/24 15:51 12/04/24 15:54 12/04/24 16:02 Temperature 97.2 F L 97.2 F L Temperature Source Temporal Temporal Pulse Rate 126 H 126 H Respiratory Rate 24 H 24 H Respiratory Effort Short of Breath Respiratory Pattern Blood Pressure 160/102 H 160/102 H Blood Pressure Mean 121 121 Pulse Ox 76 76 Oxygen Delivery Method Non-Rebreather @ 15L/min Nasal Cannula Nasal Cannula Oxygen Flow Rate (L/min) 2 4 12/04/24 16:07 12/04/24 16:43 12/04/24 16:54 Temperature 97.8 F Temperature Source Temporal Pulse Rate 116 H 114 H Respiratory Rate 21 H 26 H Respiratory Effort Respiratory Pattern Tachypnea Blood Pressure 148/62 H Blood Pressure Mean 90 Pulse Ox 90 91 Oxygen Delivery Method CPAP Oxygen Flow Rate (L/min) 12/04/24 17:12 12/04/24 18:00 Temperature 97.8 F 97.7 F L Temperature Source Temporal Oral Pulse Rate 116 H 108 H Respiratory Rate 27 H 25 H Respiratory Effort Respiratory Pattern Blood Pressure 146/77 H 129/93 H Blood Pressure Mean 100 105 Pulse Ox 91 91 Oxygen Delivery Method Nasal Cannula Oxygen Flow Rate (L/min) 5 Positive well nourished and well developed; Negative for obese, cachectic, contractures or unkempt General Appearance ED: well developed and NAD; Negative for unkempt, cachectic, contractures or pallor Nutritional Appearance: Negative for cachectic or obese HEENT Reports moist mucous membranes; Denies dry mucous membranes atraumatic; Negative for trauma or tenderness Mouth ED: No dry mucous membranes Mouth: No dry mucous membranes Eyes PERRL and EOMs intact bilaterally General Eye ED: Negative for pale conjunctiva or scleral icterus Neck no lymphadenopathy, supple, no meningeal signs and no JVD General: Negative for tenderness Lymph Lymphatic: Negative for other Chest Wall Chest: Negative for other Resp No normal respiratory effort and No clear to auscultation bilaterally Resp Narrative: Bilateral wheezing. Inspiratory and expiratory. Prolonged expiratory phase. Dry cough. Auscultation: wheezes Cardio regular rhythm, S1 normal heart sound, S2 normal heart sound and no murmurs; Negative for regular rate Rate: tachycardic; Negative for bradycardia Rhythm: Negative for abnormal rhythm GI non-tender, non-distended and no masses Auscultation: normoactive bowel sounds Palpation: soft; Negative for tender, guarding, mass or rebound tenderness present Back/Spine no CVA tenderness and normal to inspection Extremity normal to inspection General Extremety ED: Negative for edema or tenderness General Extremity: Negative for edema Neuro oriented x3 and CN's II-XII intact bilaterally Sensorium / Orientation: alert, oriented to person, oriented to place and oriented to time; Negative for orientation impaired, confused or lethargic Speech: speech normal Motor Exam: strength 5/5 throughout Psych mental status grossly normal Appearance: Negative for unkempt Attitude: No agitated and No other Mood & Affect: Negative for depressed, anxious or tearful Skin no wounds and skin turgor normal General Skin Exam: Negative for jaundice or pallor Lesions: no lesions Rashes: no rashes MDM MDM MDM Narrative Medical decision making narrative: 59-year-old COPD patient with acute exacerbation possibly secondary underlying influenza versus pneumonia versus other. Chest x-ray and labs will be obtained. COVID and flu will be tested for. Treated with aerosols both DuoNeb and albuterol and IV Solu-Medrol. Reassess. May need to be admitted. Repeat exam at 5:43 PM patient is still wheezing. She is doing better after theaerosol and Solu-Medrol but I think she will need to be admitted for COPD exacerbation. She remains tachycardic and dyspneic. Hospitalist is on page. History & Record Review Discussion w/independent historian: Patient Additional record(s) reviewed:: Prior inpatient record, Prior outpatient record,Prior ED visit and Prior labs Lab Data Attestation: I reviewed the patient's lab results. Lab results narrative: CBC shows a white count of 14. H&H of 14 and 43. Platelets 271. Chemistries show a gap of 13. Normal BUN of 10 and creatinine 0.9. Glucose 118. Chest x-ray chronic changes consistent with COPD. No pneumonia. Lipase normal at 25. Labs: Laboratory Results - last 24 hr 12/04/24 16:22 WBC 14.1 H RBC 5.24 Hgb 14.1 Hct 43.7 MCV 83.4 MCH 26.9 L MCHC 32.3 RDW Std Deviation 44.6 H RDW Coeff of Min 14.7 H Plt Count 271 MPV 10.2 Immature Gran % (Auto) 0.800 Neut % (Auto) 80.5 H Lymph % (Auto) 6.8 L K[place]y % (Auto) 10.4 H Eos % (Auto) 0.6 Baso % (Auto) 0.9 Absolute Neuts (auto) 11.4 H Absolute Lymphs (auto) 0.96 Nucleated RBC % 0 Sodium 137 Potassium 4.2 Chloride 99 Carbon Dioxide 24.6 Anion Gap 13 BUN 10 Creatinine 0.92 Estim Creat Clear Calc 53.12 Est GFR (MDRD) Non-Af 71 BUN/Creatinine Ratio 10.4 Glucose 118 H Calcium 9.2 Lipase 25 Radiography Chest X-Ray - ED: 2 View, Read by ED Physician, Heart, Lungs, Mediastinum, Bony Structures, No Acute Disease and Chronic Changes Diagnostic Testing: Clinical Impression(s) from Imaging Studies Chest X-Ray 12/04/24 16:06 IMPRESSION: No acute airspace abnormality. Emphysema. Reading Location: [facility] Chest x-ray, 2 views, AP and lateral, interpreted by myself shows normal cardiacsilhouette. Normal lung sherman. Chronic changes consistent with COPD. No pneumonia. No pulmonary edema. No effusions. Chronic scarring. Rhythm Strip Rhythm Strip: Sinus Tach Rate: 121 Ectopy: None EKG Initial EKG: Attestation: I personally reviewed and interpreted this EKG as follows: Interpretation: Sinus Tachycardia Comments: Sinus tachycardia rate of 121. No acute signs of ME or ischemia. No dysrhythmia. Discharge Plan Dx/Rx/DC Orders Clinical Impression: Viral URI, COPD exacerbation, Hypoxia, Chronic pancreatitis Disposition Disposition: Acute Care Hospital [facility] What to do if you have Problems For any increased pain, shortness of breath, bleeding, nausea or vomiting, chestpain, or any unexpected problems, contact your Primary Care Provider. Call [facility] ([phone]) or report to the closest Emergency Room. Call 911 if necessary. 12/04/24 2932 <Electronically signed by Franco Inman MD> Cosigner Signature (if applicable): CC: Dr. Annmarie Elkins MD ~ Signed [facility] Work Phone: 1(581) 513-300803-09-2025 Evaluation note* Diagnosis Onset Date Resolution Status Admit Date Acute hypoxic respiratory failure acute December 04, 2024 6:03pm Pulmonary nodule acute November 6:03pm Stenosis of left subclavian artery acute December 04, 2024 6:03pm Chronic pancreatitis chronic Lino h 2024 6:03pm COPD with acute exacerbation chronic December 04, 2024 6:03pm [facility] Work Phone: 1(558) 490-583303-09-2025 Evaluation note* Diagnosis Onset Date Resolution Status Admit Date COPD with acute exacerbation resolve d December 04, 2024 6:03pm Acute hypoxic respiratory failure inactive December 04, 2024 6:03pm Chronic pancreatitis inactive Lino h 2024 6:03pm Pulmonary nodule inactive November 6:03pm Stenosis of left subclavian artery inactive December 04, 2024 6:03pm Dysphagia acute December 16 2:38pm Chronic pancreatitis inactive Lino h 2024 2:38pm Acute cholecystitis acute December 23, 2024 9:59am Alcoholic hepatitis chronic December 23, 2024 9:59am Anxiety and depression chronic [facility] 2024 9:59am Asthma chronic December 23 9:59am Chronic pancreatitis chronic Lino h 2024 9:59am Chronic respiratory failure with hypoxia chronic December 23, 2024 9:59am COPD (chronic obstructive pulmonary disease) chronic December 23, 2 025 9:59am Smoking greater than 30 pack years chronic December 23, 2024 9:59am [facility] Work Phone: [phone]) 119-209603-09-2025 Evaluation note* Diagnosis Onset Date Resolution Status Admit Date COPD with acute exacerbation resolve d December 04, 2024 6:03pm Acute hypoxic respiratory failure inactive December 04, 2024 6:03pm Chronic pancreatitis inactive Lino h 2024 6:03pm Pulmonary nodule inactive November 6:03pm Stenosis of left subclavian artery inactive December 04, 2024 6:03pm Dysphagia acute December 16 2:38pm Chronic pancreatitis inactive Lino h 2024 2:38pm Acute cholecystitis acute December 23, 2024 9:59am Alcoholic hepatitis chronic December 23, 2024 9:59am Anxiety and depression chronic [facility] 2024 9:59am Asthma chronic December 23 9:59am Chronic pancreatitis chronic Lino h 2024 9:59am Chronic respiratory failure with hypoxia chronic December 23, 2024 9:59am COPD (chronic obstructive pulmonary disease) chronic December 23, 025 9:59am Smoking greater than 30 pack years chronic December 23, 2024 9:59am Acute cholecystitis acute January 262024 1:07pm Alcoholic hepatitis chronic January 262024 1:07pm Anxiety and depression chronic Ma y 2024 1:07pm Asthma chronic February 08, 2025 1:07pm Chronic pancreatitis chronic February 08, 2025 1:07pm Chronic respiratory failure with hypoxia chronic February 08, 2025 1 :07pm COPD (chronic obstructive pulmonary disease) chronic February 08 1:07pm Smoking greater than 30 pack years chronic February 08, 2025 1 :07pm [facility] Work Phone: 1(428) 895-214103-09-2025 Radiology Diagnostic study note [facility] Imaging Services [address] [place] [address] [id number] CTA Chest W/WO Contrast MR#: [id number] Acct: [id number] Name: GRACIE BANUELOS Rep #: [id number] : 1965 F 59 From: Jay Juarez DO PCP: Dr. Annmarie Elkins MD Status: ADM I N Study:CTA Chest W/WO Contrast Date of Exam: 12/04/24 Exam# [id number] Ordering Dr: Kaitlin Aguayo DO PROCEDURE: CTA chest REASON FOR EXAM: Hypoxia, shortness of breath, cough TECHNIQUE: Multiple contiguous axial images of the chest were obtained after the administration of intravenouscontrast. Two-dimensional and three-dimensional MIP coronal and sagittal reformatted images were reconstructed. Low-dose imaging technique was utilized. COMPARISON: 01/02/2024 FINDINGS: Mild cardiomegaly. Mild three-vessel coronary artery calcifications. Mitral annular calcifications.No significant pericardial effusion. Calcified nonaneurysmal thoracic aorta. Severe stenosis/occlusion ofthe proximal left subclavian artery. Normal caliber pulmonary arteries without filling defects. No suspicious adenopathy. Calcifications in thepancreatic head which may relate to chronic pancreatitis. Right renal atrophy. Superficial soft tissues are intact. Central airways are patent. Moderate emphysema. No acute infiltrates, pleural effusion or pneumothorax. 3 mm nodule along the posteromedial right lower lobe. No pulmonary mass. No acute osseous abnormality. CT/CTA Chest W/WO Contrast IMPRESSION: 1. No acute process. 2. Emphysema and coronary artery disease. 3. 3 mm pulmonary nodule in the right lower lobe. [address] follow-up recommended per Fleischner criteria. 4. 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 One or more dose reduction techniques were used (e.g., Automated exposure control, adjustment of the mA and/or kV according to patient size, use of iterative reconstruction technique). Reading Location: [facility] CC: Dr. Annmarie Elkins MD; Dr. Aleta Aguayo DO ~ Advanced Practice Nurse Psychotherapist: Signed [facility]03-09-2025 Discharge summary [facility] Medical Records Department [address] [place] [address] Emergency Department Summary 12/04/24 MR#: [id number] Acct: [id number] Name: GRACIE BANUELOS Rep #:[id number] : 1965 59 From: Franco Inman MD PCP: Dr. Annmarie Elkins MD Status:ADM I N Location: [place] [address] HPI History of Present Illness Chief Complaint: Shortness of Breath Informant: patient Onset/Context/Timing Onset: Days Context: gradual Timing: Continuous Quality: Positive for Wheezing Current Severity: Moderate Maximum Severity: Moderate Worsened by: Coughing Relieved by: Oxygen Associated Symptoms cough and white sputum Chest Pain: Positive for None Narrative Narrative: 59-year-old female history of COPD and asthma still smokes. Chronic pain management chronic pancreatitis. Recently had a pancreatic block done at the [facility] was discharged the same day. Sheis on 2 L oxygen at home as needed currently on 2 L she is 76% and hypoxic. States that she has been coughing with shortness of breath for the last 2 days. Has had limited nausea and vomiting. She took Zofran at home prior to arrival. States that the cough is whitish sputum. Denies any obvious exposure. Denies recent hospitalization. Denies chest pain or hemoptysis. She has been wheezing at home.She continuesto smoke. PE Risk Factors: Negative for Cancer, OCP + Smoking + > 35, Prior DVT or PE, Recent immobilization, Recent surgery or Recent travel Recent Illness/Hospitalization: No PFSH PFSH Medical History Pancreatic stones HLD (hyperlipidemia) History of alcohol abuse Pneumonia Acute on chronic hypoxic respiratory failure Stage 3 severe COPD by GOLD classification Asthma COPD (chronic obstructive pulmonary disease) Arthritis History of back problems Anxiety and depression Chronic pancreatitis HPV (human papilloma virus) infection Anemia Tobacco abuse GERD (gastroesophageal reflux disease) Benign hypertension Home Medications ?Medication ?Instructions ?Recorded ?Last Taken ?Type cholecalciferol (vitamin D3) 50 50 mcg PO DAILY SUPPLE MENT 12/29/18 10/31/22 His tory mcg (2,000 unit) capsule pantoprazole 40 mg tablet,delayed 40 mg PO DAILY GERD 08/12/20 10/31/22 History release aripiprazole 5 mg tablet (Abilify) 5 mg PO DAILY mood 01/22/21 10/31/22 History hydroxyzine pamoate 25 mg capsule 25 mg PO QHS SLEEP 0 06/12/21 01/01/24 History mirtazapine 45 mg tablet 45 mg PO QHS sleep 01/16/22 01/01/24 History simvastatin 20 mg tablet 20 mg PO QHS cholesterol 01/1801/01/24 History hydrochlorothiazide 12.5 mg capsule 12.[address] 30 days #30 01/05/24 Unknown Rx caps metoprolol tartrate 25 mg tablet 25 mg PO BID 30 days #60 tabs 01/05/24 Unknown Rx amlodipine 10 mg tablet 5 mg PO DAILY 01/26/24 Unkno wn History ipratropium 0.5 mg-albuterol 3 mg 3 ml inhalation Q4H PRN shortness 01/26/24 Unknown Rx (2.5 mg base)/3 mL nebulization of breath or wheezing #90 mL soln lisinopril 10 mg tablet 10 mg PO QDAY 01/26/24 Unkno wn History albuterol sulfate 90 mcg/actuation 2 puff inhalation Q 4H PRN 05/11/24 Unknown Rx aerosol inhaler (Ventolin HFA) shortness of breath or wheezing #18 grams lorazepam 0.5 mg tablet 0.5 mg PO BID 05/11/24 Unkno wn History fluticasone fur. 200 mcg-umeclid 1 inh inhalation NILAY Y #3 ea 08/29/24 Unknown Rx 62.5 mcg-vilant 25 mcg inhalat.powder (Trelegy Ellipta) Allergy/AdvReac Type Severity Reaction Status Date / Time clindamycin Allergy Intermediate Hives Verified 12/04/24 15:55 Penicillins Allergy Hives Verified 12/04/24 15:55 sulfamethoxazole (From Allergy Other Verified 12/04/24 15:55 Bactrim) trimethoprim (From Bactrim) Allergy Other Verified 12/04/24 15:55 hydrocodone (From Bode) AdvReac Itching Verified 12/04/24 15:55 Family History Mother Diabetes Hypertension Heart disease High cholesterol Arthritis Thyroid disorder Brother Hypertension Sister Cancer cervical Thyroid disorder Father Kidney disease Daughter Thyroid disorder Family History no significant family his Surgical History History of tubal ligation History of colonoscopy History of appendectomy Surgical History no surgical history Social History household members: family Smoking Status: Heavy Smoker (>10/day) Tobacco: How many years used: 30 second hand exposure: Yes alcohol intake: former details: Sober since 2020. substance use type: does not use caffeine: Yes ROS ROS ED ROS Narrative Cough. White sputum. Shortness of breath. Wheezing. Constitutional Constitutional ED: Denies chills or fever(s) Eyes Eyes: Denies blurry vision ENT ENT ED: Denies ear pain Cardiovascular Cardiovascular: Denies chest pain Respiratory/Chest Respiratory/Chest: Reports cough, dyspnea and sputum Gastrointestinal Gastrointestinal: Reports nausea and vomiting; Denies abdominal pain, constipation, diarrhea or melena Genitourinary Genitourinary ED: Denies dysuria or hematuria Musculoskeletal Musculoskeletal: Denies arthralgias or back pain Integumentary Denies abscess or Abrasions Neurologic Neurologic: Denies headache(s) Psychiatric Psychiatric: Denies anxiety Endocrine Endocrinology: Denies cold intolerance Hematologic/Lymphatic Hematologic/Lymphatic: Denies easy bleeding, easy bruising or lymphadenopathy Allergic/Immunologic Allergic/Immunologic ED: Denies mouth swelling, tongue swelling or urticaria EXAM Physical Exam Narrative Exam Narrative: 59-year-old female sitting upright in bed on oxygen. On 2 L she is 76%. On 5 Lcurrently she is 86%.She does not seem septic or toxic. She does have a dry cough. H EENT exam pupils round reactive light. Extra motions are intact. Moist mucous membranes. Neck nontender no JVD. No lymphadenopathy. Lungs prolonged expiratory phase. Inspiratory expiratory wheezing. No rales or rhonchi. Equal symmetric. Heart tachycardic 125 no murmur. Chest wall ribs nontender. Abdomen soft nontender. No peritoneal signs. No distention. Back nontender. Moving all 4 extremities. 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 Normal dorsi plantarflexion. Calves are nontender without edema or cords. Neurologically she is awake alert answering questions following commands. Const Vital Signs: 12/04/24 15:51 12/04/24 15:54 12/04/24 16:02 Temperature 97.2 F L 97.2 F L Temperature Source Temporal Temporal Pulse Rate 126 H 126 H Respiratory Rate 24 H 24 H Respiratory Effort Short of Breath Respiratory Pattern Blood Pressure 160/102 H 160/102 H Blood Pressure Mean 121 121 Pulse Ox 76 76 Oxygen Delivery Method Non-Rebreather @ 15L/min Nasal Cannula Nasal Cannula Oxygen Flow Rate (L/min) 2 4 12/04/24 16:07 12/04/24 16:43 12/04/24 16:54 Temperature 97.8 F Temperature Source Temporal Pulse Rate 116 H 114 H Respiratory Rate 21 H 26 H Respiratory Effort Respiratory Pattern Tachypnea Blood Pressure 148/62 H Blood Pressure Mean 90 Pulse Ox 90 91 Oxygen Delivery Method CPAP Oxygen Flow Rate (L/min) 12/04/24 17:12 12/04/24 18:00 Temperature 97.8 F 97.7 F L Temperature Source Temporal Oral Pulse Rate 116 H 108 H Respiratory Rate 27 H 25 H Respiratory Effort Respiratory Pattern Blood Pressure 146/77 H 129/93 H Blood Pressure Mean 100 105 Pulse Ox 91 91 Oxygen Delivery Method Nasal Cannula Oxygen Flow Rate (L/min) 5 Positive well nourished and well developed; Negative for obese, cachectic, contractures or unkempt General Appearance ED: well developed and NAD; Negative for unkempt, cachectic, contractures or pallor Nutritional Appearance: Negative for cachectic or obese HEENT Reports moist mucous membranes; Denies dry mucous membranes atraumatic; Negative for trauma or tenderness Mouth ED: No dry mucous membranes Mouth: No dry mucous membranes Eyes PERRL and EOMs intact bilaterally General Eye ED: Negative for pale conjunctiva or scleral icterus Neck no lymphadenopathy, supple, no meningeal signs and no JVD General: Negative for tenderness Lymph Lymphatic: Negative for other Chest Wall Chest: Negative for other Resp No normal respiratory effort and No clear to auscultation bilaterally Resp Narrative: Bilateral wheezing. Inspiratory and expiratory. Prolonged expiratory phase. Dry cough. Auscultation: wheezes Cardio regular rhythm, S1 normal heart sound, S2 normal heart sound and no murmurs; Negative for regular rate Rate: tachycardic; Negative for bradycardia Rhythm: Negative for abnormal rhythm GI non-tender, non-distended and no masses Auscultation: normoactive bowel sounds Palpation: soft; Negative for tender, guarding, mass or rebound tenderness present Back/Spine no CVA tenderness and normal to inspection Extremity normal to inspection General Extremety ED: Negative for edema or tenderness General Extremity: Negative for edema Neuro oriented x3 and CN's II-XII intact bilaterally Sensorium / Orientation: alert, oriented to person, oriented to place and oriented to time; Negative for orientation impaired, confused or lethargic Speech: speech normal Motor Exam: strength 5/5 throughout Psych mental status grossly normal Appearance: Negative for unkempt Attitude: No agitated and No other Mood & Affect: Negative for depressed, anxious or tearful Skin no wounds and skin turgor normal General Skin Exam: Negative for jaundice or pallor Lesions: no lesions Rashes: no rashes MDM MDM MDM Narrative Medical decision making narrative: 59-year-old COPD patient with acute exacerbation possibly secondary underlying influenza versus pneumonia versus other. Chest x-ray and labs will be obtained. COVID and flu will be tested for. Treated with aerosols both DuoNeb and albuterol and IV Solu-Medrol. Reassess. May need to be admitted. Repeat exam at 5:43 PM patient is still wheezing. She is doing better after theaerosol and Solu-Medrol but I think she will need to be admitted for COPD exacerbation. She remains tachycardic and dyspneic. Hospitalist is on page. History & Record Review Discussion w/independent historian: Patient Additional record(s) reviewed:: Prior inpatient record, Prior outpatient record,Prior ED visit and Prior labs Lab Data Attestation: I reviewed the patient's lab results. Lab results narrative: CBC shows a white count of 14. H&H of 14 and 43. Platelets 271. Chemistries show a gap of 13. Normal BUN of 10 and creatinine 0.9. Glucose 118. Chest x-ray chronic changes consistent with COPD. No pneumonia. Lipase normal at 25. Labs: Laboratory Results - last 24 hr 12/04/24 16:22 WBC 14.1 H RBC 5.24 Hgb 14.1 Hct 43.7 MCV 83.4 MCH 26.9 L MCHC 32.3 RDW Std Deviation 44.6 H RDW Coeff of Min 14.7 H Plt Count 271 MPV 10.2 Immature Gran % (Auto) 0.800 Neut % (Auto) 80.5 H Lymph % (Auto) 6.8 L Kenedy % (Auto) 10.4 H Eos % (Auto) 0.6 Baso % (Auto) 0.9 Absolute Neuts (auto) 11.4 H Absolute Lymphs (auto) 0.96 Nucleated RBC % 0 Sodium 137 Potassium 4.2 Chloride 99 Carbon Dioxide 24.6 Anion Gap 13 BUN 10 Creatinine 0.92 Estim Creat Clear Calc 53.12 Est GFR (MDRD) Non-Af 71 BUN/Creatinine Ratio 10.4 Glucose 118 H Calcium 9.2 Lipase 25 Radiography Chest X-Ray - ED: 2 View, Read by ED Physician, Heart, Lungs, Mediastinum, Bony Structures, No Acute Disease and Chronic Changes Diagnostic Testing: Clinical Impression(s) from Imaging Studies Chest X-Ray 12/04/24 16:06 IMPRESSION: No acute airspace abnormality. Emphysema. Reading Location: [facility] Chest x-ray, 2 views, AP and lateral, interpreted by myself shows normal cardiacsilhouette. Normal lung sherman. Chronic changes consistent with COPD. No pneumonia. No pulmonary edema. No effusions. Chronic scarring. Rhythm Strip Rhythm Strip: Sinus Tach Rate: 121 Ectopy: None EKG Initial EKG: Attestation: I personally reviewed and interpreted this EKG as follows: Interpretation: Sinus Tachycardia Comments: Sinus tachycardia rate of 121. No acute signs of ME or ischemia. No dysrhythmia. Discharge Plan Dx/Rx/DC Orders Clinical Impression: Viral URI, COPD exacerbation, Hypoxia, Chronic pancreatitis Disposition Disposition: Acute Care Hospital [facility] What to do if you have Problems For any increased pain, shortness of breath, bleeding, nausea or vomiting, chestpain, or any unexpected problems, contact your Primary Care Provider. Call [facility] ([phone]) or report tothe closest Emergency Room. Call 911 if necessary. 12/04/24 1846 Cosigner Signature (if applicable): CC: Dr. Annmarie Elkins MD ~ Signed [facility]03-09-2025 Radiology Diagnostic study note [facility] Imaging Services [address] [place] [address] Chest PA and Lateral MR#: [id number] Acct: [id number] Name: GRACIE BANUELOS Rep #: [id number] : 1965 F 59 From: Jay Juarez DO PCP: Dr. Annmarie Elkins MD Status: REG E R Study:Chest PA and Lateral Date of Exam: 12/04/24 Exam# [id number] Ordering Dr: Ema Inman MD PROCEDURE: CHEST PA AND LATERAL REASON FOR EXAM: Cough, hypoxia TECHNIQUE: Frontal and lateral views of the chest. COMPARISON: 01/02/2024 FINDINGS: Cardiomediastinal silhouette is within normal limits. No focal consolidation, sizeable pleural effusion or pneumothorax. Moderate emphysema. RAD/Chest PA and Lateral IMPRESSION: No acute airspace abnormality. Emphysema. Reading Location: [facility] CC: Dr. Annmarie Elkins MD; Dr. Franco Inman MD ~ Advanced Practice Nurse Psychotherapist: Signed [facility]03-09-2025 Discharge summary Author Franco Inman [facility] Note Date/Time December 04, 2024 6:46 pm [facility] Medical Records Department [address] [place] [address] Emergency Department Summary 12/04/24 MR#: [id number] Acct: [id number] Name: GRACIE BANUELOS Rep #:[id number] : 1965 59 From: Franco Inman MD PCP: Dr. Annmarie Elkins MD Status:ADM I N Location: [place] [address] HPI History of Present Illness Chief Complaint: Shortness of Breath Informant: patient Onset/Context/Timing Onset: Days Context: gradual Timing: Continuous Quality: Positive for Wheezing Current Severity: Moderate Maximum Severity: Moderate Worsened by: Coughing Relieved by: Oxygen Associated Symptoms cough and white sputum Chest Pain: Positive for None Narrative Narrative: 59-year-old female history of COPD and asthma still smokes. Chronic pain management chronic pancreatitis. Recently had a pancreatic block done at the [facility] was discharged the same day. She is on 2 L oxygen at home as needed currently on 2 L she is 76% and hypoxic. States that she has been coughing with shortness of breath for the last 2 days. Has had limited nausea and vomiting. She took Zofran at home prior to arrival. States that the cough is whitish sputum. Denies any obvious exposure. Denies recent hospitalization. Denies chest pain or hemoptysis. She has been wheezing at home. She continuesto smoke. PE Risk Factors: Negative for Cancer, OCP + Smoking + > 35, Prior DVT or PE, Recent immobilization, Recent surgery or Recent travel Recent Illness/Hospitalization: No PFSH PFSH Medical History Pancreatic stones HLD (hyperlipidemia) History of alcohol abuse Pneumonia Acute on chronic hypoxic respiratory failure Stage 3 severe COPD by GOLD classification Asthma COPD (chronic obstructive pulmonary disease) Arthritis History of back problems Anxiety and depression Chronic pancreatitis HPV (human papilloma virus) infection Anemia Tobacco abuse GERD (gastroesophageal reflux disease) Benign hypertension Home Medications ?Medication ?Instructions ?Recorded ?Last Taken ?Type cholecalciferol (vitamin D3) 50 50 mcg PO DAILY SUPPLE MENT 12/29/18 10/31/22 His tory mcg (2,000 unit) capsule pantoprazole 40 mg tablet,delayed 40 mg PO DAILY GERD 08/12/20 10/31/22 History release aripiprazole 5 mg tablet (Abilify) 5 mg PO DAILY mood 01/22/21 10/31/22 History hydroxyzine pamoate 25 mg capsule 25 mg PO QHS SLEEP 0 06/12/21 01/01/24 History mirtazapine 45 mg tablet 45 mg PO QHS sleep 01/16/22 01/01/24 History simvastatin 20 mg tablet 20 mg PO QHS cholesterol 01/1801/01/24 History hydrochlorothiazide 12.5 mg capsule 12.[address] 30 days #30 01/05/24 Unknown Rx caps metoprolol tartrate 25 mg tablet 25 mg PO BID 30 days #60 tabs 01/05/24 Unknown Rx amlodipine 10 mg tablet 5 mg PO DAILY 01/26/24 Unkno wn History ipratropium 0.5 mg-albuterol 3 mg 3 ml inhalation Q4H PRN shortness 01/26/24 Unknown Rx (2.5 mg base)/3 mL nebulization of breath or wheezing #90 mL soln lisinopril 10 mg tablet 10 mg PO QDAY 01/26/24 Unkno wn History albuterol sulfate 90 mcg/actuation 2 puff inhalation Q 4H PRN 05/11/24 Unknown Rx aerosol inhaler (Ventolin HFA) shortness of breath or wheezing #18 grams lorazepam 0.5 mg tablet 0.5 mg PO BID 05/11/24 Unkno wn History fluticasone fur. 200 mcg-umeclid 1 inh inhalation NILAY Y #3 ea 08/29/24 Unknown Rx 62.5 mcg-vilant 25 mcg inhalat.powder (Trelegy Ellipta) Allergy/AdvReac Type Severity Reaction Status Date / Time clindamycin Allergy Intermediate Hives Verified 12/04/24 15:55 Penicillins Allergy Hives Verified 12/04/24 15:55 sulfamethoxazole (From Allergy Other Verified 12/04/24 15:55 Bactrim) trimethoprim (From Bactrim) Allergy Other Verified 12/04/24 15:55 hydrocodone (From Bode) AdvReac Itching Verified 12/04/24 15:55 Family History Mother Diabetes Hypertension Heart disease High cholesterol Arthritis Thyroid disorder Brother Hypertension Sister Cancer cervical Thyroid disorder Father Kidney disease Daughter Thyroid disorder Family History no significant family his Surgical History History of tubal ligation History of colonoscopy History of appendectomy Surgical History no surgical history Social History household members: family Smoking Status: Heavy Smoker (>10/day) Tobacco: How many years used: 30 second hand exposure: Yes alcohol intake: former details: Sober since 2020. substance use type: does not use caffeine: Yes ROS ROS ED ROS Narrative Cough. White sputum. Shortness of breath. Wheezing. Constitutional Constitutional ED: Denies chills or fever(s) Eyes Eyes: Denies blurry vision ENT ENT ED: Denies ear pain Cardiovascular Cardiovascular: Denies chest pain Respiratory/Chest Respiratory/Chest: Reports cough, dyspnea and sputum Gastrointestinal Gastrointestinal: Reports nausea and vomiting; Denies abdominal pain, constipation, diarrhea or melena Genitourinary Genitourinary ED: Denies dysuria or hematuria Musculoskeletal Musculoskeletal: Denies arthralgias or back pain Integumentary Denies abscess or Abrasions Neurologic Neurologic: Denies headache(s) Psychiatric Psychiatric: Denies anxiety Endocrine Endocrinology: Denies cold intolerance Hematologic/Lymphatic Hematologic/Lymphatic: Denies easy bleeding, easy bruising or lymphadenopathy Allergic/Immunologic Allergic/Immunologic ED: Denies mouth swelling, tongue swelling or urticaria EXAM Physical Exam Narrative Exam Narrative: 59-year-old female sitting upright in bed on oxygen. On 2 L she is 76%. On 5 Lcurrently she is 86%. She does not seem septic or toxic. She does have a dry cough. H EENT exam pupils round reactive light. Extra motions are intact. Moist mucous membranes. Neck nontender no JVD. No lymphadenopathy. Lungs prolonged expiratory phase. Inspiratory expiratory wheezing. No rales or rhonchi. Equal symmetric. Heart tachycardic 125 no murmur. Chest wall ribs nontender. Abdomen soft nontender. No peritoneal signs. No distention. Back nontender. Moving all 4 extremities. 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 Normal dorsi plantarflexion. Calves are nontender without edema or cords. Neurologically she is awake alert answering questions following commands. Const Vital Signs: 12/04/24 15:51 12/04/24 15:54 12/04/24 16:02 Temperature 97.2 F L 97.2 F L Temperature Source Temporal Temporal Pulse Rate 126 H 126 H Respiratory Rate 24 H 24 H Respiratory Effort Short of Breath Respiratory Pattern Blood Pressure 160/102 H 160/102 H Blood Pressure Mean 121 121 Pulse Ox 76 76 Oxygen Delivery Method Non-Rebreather @ 15L/min Nasal Cannula Nasal Cannula Oxygen Flow Rate (L/min) 2 4 12/04/24 16:07 12/04/24 16:43 12/04/24 16:54 Temperature 97.8 F Temperature Source Temporal Pulse Rate 116 H 114 H Respiratory Rate 21 H 26 H Respiratory Effort Respiratory Pattern Tachypnea Blood Pressure 148/62 H Blood Pressure Mean 90 Pulse Ox 90 91 Oxygen Delivery Method CPAP Oxygen Flow Rate (L/min) 12/04/24 17:12 12/04/24 18:00 Temperature 97.8 F 97.7 F L Temperature Source Temporal Oral Pulse Rate 116 H 108 H Respiratory Rate 27 H 25 H Respiratory Effort Respiratory Pattern Blood Pressure 146/77 H 129/93 H Blood Pressure Mean 100 105 Pulse Ox 91 91 Oxygen Delivery Method Nasal Cannula Oxygen Flow Rate (L/min) 5 Positive well nourished and well developed; Negative for obese, cachectic, contractures or unkempt General Appearance ED: well developed and NAD; Negative for unkempt, cachectic, contractures or pallor Nutritional Appearance: Negative for cachectic or obese HEENT Reports moist mucous membranes; Denies dry mucous membranes atraumatic; Negative for trauma or tenderness Mouth ED: No dry mucous membranes Mouth: No dry mucous membranes Eyes PERRL and EOMs intact bilaterally General Eye ED: Negative for pale conjunctiva or scleral icterus Neck no lymphadenopathy, supple, no meningeal signs and no JVD General: Negative for tenderness Lymph Lymphatic: Negative for other Chest Wall Chest: Negative for other Resp No normal respiratory effort and No clear to auscultation bilaterally Resp Narrative: Bilateral wheezing. Inspiratory and expiratory. Prolonged expiratory phase. Dry cough. Auscultation: wheezes Cardio regular rhythm, S1 normal heart sound, S2 normal heart sound and no murmurs; Negative for regular rate Rate: tachycardic; Negative for bradycardia Rhythm: Negative for abnormal rhythm GI non-tender, non-distended and no masses Auscultation: normoactive bowel sounds Palpation: soft; Negative for tender, guarding, mass or rebound tenderness present Back/Spine no CVA tenderness and normal to inspection Extremity normal to inspection General Extremety ED: Negative for edema or tenderness General Extremity: Negative for edema Neuro oriented x3 and CN's II-XII intact bilaterally Sensorium / Orientation: alert, oriented to person, oriented to place and oriented to time; Negative for orientation impaired, confused or lethargic Speech: speech normal Motor Exam: strength 5/5 throughout Psych mental status grossly normal Appearance: Negative for unkempt Attitude: No agitated and No other Mood & Affect: Negative for depressed, anxious or tearful Skin no wounds and skin turgor normal General Skin Exam: Negative for jaundice or pallor Lesions: no lesions Rashes: no rashes MDM MDM MDM Narrative Medical decision making narrative: 59-year-old COPD patient with acute exacerbation possibly secondary underlying influenza versus pneumonia versus other. Chest x-ray and labs will be obtained. COVID and flu will be tested for. Treated with aerosols both DuoNeb and albuterol and IV Solu-Medrol. Reassess. May need to be admitted. Repeat exam at 5:43 PM patient is still wheezing. She is doing better after theaerosol and Solu-Medrol but I think she will need to be admitted for COPD exacerbation. She remains tachycardic and dyspneic. Hospitalist is on page. History & Record Review Discussion w/independent historian: Patient Additional record(s) reviewed:: Prior inpatient record, Prior outpatient record,Prior ED visit and Prior labs Lab Data Attestation: I reviewed the patient's lab results. Lab results narrative: CBC shows a white count of 14. H&H of 14 and 43. Platelets 271. Chemistries show a gap of 13. Normal BUN of 10 and creatinine 0.9. Glucose 118. Chest x-ray chronic changes consistent with COPD. No pneumonia. Lipase normal at 25. Labs: Laboratory Results - last 24 hr 12/04/24 16:22 WBC 14.1 H RBC 5.24 Hgb 14.1 Hct 43.7 MCV 83.4 MCH 26.9 L MCHC 32.3 RDW Std Deviation 44.6 H RDW Coeff of Min 14.7 H Plt Count 271 MPV 10.2 Immature Gran % (Auto) 0.800 Neut % (Auto) 80.5 H Lymph % (Auto) 6.8 L Kenedy % (Auto) 10.4 H Eos % (Auto) 0.6 Baso % (Auto) 0.9 Absolute Neuts (auto) 11.4 H Absolute Lymphs (auto) 0.96 Nucleated RBC % 0 Sodium 137 Potassium 4.2 Chloride 99 Carbon Dioxide 24.6 Anion Gap 13 BUN 10 Creatinine 0.92 Estim Creat Clear Calc 53.12 Est GFR (MDRD) Non-Af 71 BUN/Creatinine Ratio 10.4 Glucose 118 H Calcium 9.2 Lipase 25 Radiography Chest X-Ray - ED: 2 View, Read by ED Physician, Heart, Lungs, Mediastinum, Bony Structures, No Acute Disease and Chronic Changes Diagnostic Testing: Clinical Impression(s) from Imaging Studies Chest X-Ray 12/04/24 16:06 IMPRESSION: No acute airspace abnormality. Emphysema. [facility] x-[facility], 2 views, AP and lateral, interpreted by myself shows normal cardiacsilhouette. Normal lung sherman. Chronic changes consistent with COPD. No pneumonia. No pulmonary edema. No effusions. Chronic scarring. Rhythm Strip Rhythm Strip: Sinus Tach Rate: 121 Ectopy: None EKG Initial EKG: Attestation: I personally reviewed and interpreted this EKG as follows: Interpretation: Sinus Tachycardia Comments: Sinus tachycardia rate of 121. No acute signs of ME or ischemia. No dysrhythmia. Discharge Plan Dx/Rx/DC Orders Clinical Impression: Viral URI, COPD exacerbation, Hypoxia, Chronic pancreatitis Disposition Disposition: Acute Care Hospital [facility] What to do if you have Problems For any increased pain, shortness of breath, bleeding, nausea or vomiting, chestpain, or any unexpected problems, contact your Primary Care Provider. Call [facility] ([phone]) or report to the closest Emergency Room. Call 911 if necessary. 12/04/24 184 <Electronically signed by Franco Inman MD> Cosigner Signature (if applicable): CC: Dr. Annmarie Elkins MD ~ Signed [facility] Work Phone: [phone]) 842-356103-06-2025 Telephone encounter Note* Telephone Encounter - Jane Farrell MD - 12/01/2024 11:58 AM EST Orders [facility]03-06-2025 Miscellaneous Notes* Telephone Encounter - Jane Farrell MD - 12/01/2024 11:58 AM EST [facility] Nurse Note* Reshma Telles RN - 12/01/2024 10:57 AM EST AMBULATORY PATIENT EDUCATION NOTE TOPIC: GI PROCEDURES: Endoscopic Ultrasound (EUS) with or without Fine Needle Aspiration (FNA) READINESS TO LEARN INSTRUCTION PROVIDED TO: Patient and family member COGNITIVE ABILITY: Alert and oriented PTED MOTIVATION TO LEARN: Eager Interested FAMILY SUPPORT: High - Very involved in pt care IPATIENT LEARNS BEST BY: Individual Instruction FACTORS AFFECTING LEARNING: None PHYSICAL LIMITATIONS AFFECTING LEARNING: None LEARNING RESPONSE METHOD OF INSTRUCTION: Individual instruction PATIENT / FAMILY RESPONSE: Verbalizes understanding of: WORSENING CONDITION- Signs and symptoms of aworsening condition that warrant a call to the physician FOLLOW-UP PLAN: Patient instructed to call with any further issues Recommend - Recommend continued instruction and follow up as directed Contact information given. SUPPLEMENTAL MATERIAL: Procedure Discharge Instructions REFERRAL (RECOMMENDATION): None Electronically Signed By: Reshma Telles RN [facility]03-06-2025 Nurse Note* Reshma Telles RN - 12/01/2024 10:57 AM EST AMBULATORY PATIENT EDUCATION NOTE TOPIC: GI PROCEDURES: Endoscopic Ultrasound (EUS) with or without Fine Needle Aspiration (FNA) READINESS TO LEARN INSTRUCTION PROVIDED TO: Patient and family member COGNITIVE ABILITY: Alert and oriented PTED MOTIVATION TO LEARN: Eager Interested FAMILY SUPPORT: High - Very involved in pt care IPATIENT LEARNS BEST BY: Individual Instruction FACTORS AFFECTING LEARNING: None PHYSICAL LIMITATIONS AFFECTING LEARNING: None LEARNING RESPONSE METHOD OF INSTRUCTION: Individual instruction PATIENT / FAMILY RESPONSE: Verbalizes understanding of: WORSENING CONDITION- Signs and symptoms of aworsening condition that warrant a call to the physician FOLLOW-UP PLAN: Patient instructed to call with any further issues Recommend - Recommend continued instruction and follow up as directed Contact information given. SUPPLEMENTAL MATERIAL: Procedure Discharge Instructions REFERRAL (RECOMMENDATION): None * Kathie Dorantes RN - 12/01/2024 9:48 AM EST PRE OP LEARNING ASSESSMENT PROCEDURE/SURGERY: GI PROCEDURES: EGD READINESS TO LEARN COGNITIVE ABILITY: Alert and oriented MOTIVATION TO LEARN: Eager FAMILY SUPPORT: High - Very involved in pt care PATIENT LEARNS BEST BY: Individual Instruction Verbal Instruction FACTORS AFFECTING LEARNING: None PHYSICAL LIMITATIONS AFFECTING LEARNING: None Electronically Signed By: Kathie Dorantes RN In Department: GASTROENTEROLOGY [facility] NoteQ3 Patient Name: Gracie Banuelos Procedure Date: 12/01/2024 9:53 AM Date of : 1965 Admit Type: Outpatient Age: 59 Gender: Female Note Status: Finalized Attending MD: Jane Farrell MD, [id number] Procedure: Upper EUS Indications: Celiac plexus block for pain secondary to chronic pancreatitis Providers: Jane Farrell MD Referring Physician: Juan Senior (Referring MD) Medicines: General Anesthesia Complications: No immediate complications. Requesting Provider: Procedure: Pre-Anesthesia Assessment: - ASA Grade Assessment: II - A patient with mild systemic disease. After obtaining informed consent, the endoscope was passed under direct vision. Throughout the procedure, the patient's blood pressure, pulse, and oxygen saturations were monitored continuously. The Endosonoscope was introduced through the mouth, and advanced to the second part of duodenum. The upper EUS was accomplished without difficulty. The patient tolerated the procedure well. Moderate Sedation: GA Findings: ENDOSONOGRAPHIC FINDING: : Pancreatic parenchymal abnormalities were noted in the entire pancreas. These consisted of hyperechoic strands, hyperechoic foci and lobularity. A few hyperechoic foci measuring up to ten mm in diameter suggestive of stones were found in the pancreatic head. There was no sign of significant endosonographic abnormality in the entire main bile duct. The maximum diameter of the duct was 8 mm. No stones, no biliary sludge and ducts of normal caliber were identified. Impression: - Pancreatic parenchymal abnormalities consisting of hyperechoic strands, hyperechoic foci and lobularity were noted in the entire pancreas. - Findings suggestive of pancreatic stones were identified in the pancreatic head. - There was no sign of significant pathology in the entire main bile duct. - No specimens collected. Estimated Blood Loss: Estimated blood loss: none. Recommendation: - Patient has a contact number available for emergencies. The signs and symptoms of potential delayed complications were discussed with the patient. Return to normal activities tomorrow. Written discharge instructions were provided to the patient. - Resume previous diet. - Continue present medications. Procedure Code(s): --- Professional --- 73979, Esophagogastroduodenoscopy, flexible, transoral; with endoscopic ultrasound examination limited to the esophagus, stomach or duodenum, and adjacent structures Diagnosis Code(s): --- Professional --- K86.9, Disease of pancreas, unspecified K86.1, Other chronic pancreatitis R93.3, Abnormal findings on diagnostic imaging of other parts of digestive tract CPT copyright 2020 [employer] [employer]. All rights reserved. Attending Participation: I personally performed the entire procedure. Scope In: 10:14:38 AM Scope Out: 10:28:19 AM MD Jane Fields MD 12/01/2024 10:35:18 AM This report has been signed electronically by Jane Farrell MD Number of Addenda: 0 Note Initiated On: 12/01/2024 9:53 [id number] Patient Name: Gracie Banuelos Procedure Date: 12/01/2024 9:53 AM Date of : 1965 Admit Type: Outpatient Age: 59 Gender: Female Note Status: Finalized Attending MD: Jane Farrell MD, [id number] Procedure: Upper EUS Indications: Celiac plexus block for pain secondary to chronic pancreatitis Providers: Jane Farrell MD Referring Physician: Juan Senior (Referring MD) Medicines: General Anesthesia Complications: No immediate complications. Requesting Provider: Procedure: Pre-Anesthesia Assessment: - ASA Grade Assessment: II - A patient with mild systemic disease. After obtaining informed consent, the endoscope was passed under direct vision. Throughout the procedure, the patient's blood pressure, pulse, and oxygen saturations were monitored continuously. The Endosonoscope was introduced through the mouth, and advanced to the second part of duodenum. The upper EUS was accomplished without difficulty. The patient tolerated the procedure well. Moderate Sedation: GA Findings: ENDOSONOGRAPHIC FINDING: : Pancreatic parenchymal abnormalities were noted in the entire pancreas. These consisted of hyperechoic strands, hyperechoic foci and lobularity. A few hyperechoic foci measuring up to ten mm in diameter suggestive of stones were found in the pancreatic head. There was no sign of significant endosonographic abnormality in the entire main bile duct. The maximum diameter of the duct was 8 mm. No stones, no biliary sludge and ducts of normal caliber were identified. Impression: - Pancreatic parenchymal abnormalities consisting of hyperechoic strands, hyperechoic foci and lobularity were noted in the entire pancreas. - Findings suggestive of pancreatic stones were identified in the pancreatic head. - There was no sign of significant pathology in the entire main bile duct. - No specimens collected. Estimated Blood Loss: Estimated blood loss: none. Recommendation: - Patient has a contact number available for emergencies. The signs and symptoms of potential delayed complications were discussed with the patient. Return to normal activities tomorrow. Written discharge instructions were provided to the patient. - Resume previous diet. - Continue present medications. Procedure Code(s): --- Professional --- 22446, Esophagogastroduodenoscopy, flexible, transoral; with endoscopic ultrasound examination limited to the esophagus, stomach or duodenum, and adjacent structures Diagnosis Code(s): --- Professional --- K86.9, Disease of pancreas, unspecified K86.1, Other chronic pancreatitis R93.3, Abnormal findings on diagnostic imaging of other parts of digestive tract CPT copyright 2020 [employer] [employer]. All rights reserved. Attending Participation: I personally performed the entire procedure. Scope In: 10:14:38 AM Scope Out: 10:28:19 AM MD Jane Fields MD 12/01/2024 10:35:18 AM This report has been signed electronically by Jane Farrell MD Number of Addenda: 0 Note Initiated On: 12/01/2024 9:53 [facility]03-06-2025 Nurse Note* Kathie Dorantes RN - 12/01/2024 9:48 AM EST PRE OP LEARNING ASSESSMENT PROCEDURE/SURGERY: GI PROCEDURES: EGD READINESS TO LEARN COGNITIVE ABILITY: Alert and oriented MOTIVATION TO LEARN: Eager FAMILY SUPPORT: High - Very involved in pt care PATIENT LEARNS BEST BY: Individual Instruction Verbal Instruction FACTORS AFFECTING LEARNING: None PHYSICAL LIMITATIONS AFFECTING LEARNING: None Electronically Signed By: Kathie Dorantes RN In Department: GASTROENTEROLOGY [facility]03-04-2025 NotePatient Outreach (INTMMN) GRACIE BANUELOS ([id number]) 1965 F Date Time Provider Department 11/29/24 ANNMARIE ELKINS INTMMN During your visit today, we recorded the following information about you: Allergies As of Date: 11/29/2024 Noted Allergy Reaction BACTRIM (SULFAMETHOXAZOLE-TRIMETH*11/28/2022 4 - Hives HYDROCODONE 08/02/2020 9 - Itching PENICILLINS 07/07/2006 14 - Other: See Comments Comments: hives VALIUM (DIAZEPAM) 11/02/2013 14 - Other: See Comments Comments: cross reaction with alcohol addiction Date Reviewed: 11/07/2024 Reviewed by: Juan Borjas MA - Fully Assessed Visit Diagnosis:Hyperlipidemia [E78.5] Order(s):LIPID PANEL BASIC [SQLIPB] Order #: [id number] FUTURE Prescriptions as of 12/02/2024 - pantoprazole DR (PROTONIX) 40 mg tablet Take 1 tablet by mouth once daily. - metoprolol tartrate, short acting, (LOPRESSOR) 25 mg tablet Take 1 tablet by mouth two times a day. - amLODIPine (NORVASC) 5 mg tablet Take 1 tablet by mouth once daily. - hydrOXYzine HCl (ATARAX) 25 mg tablet Take 1 tablet by mouth three times a day as needed for itching/rash. - MUCINEX D MAXIMUM STRENGTH 120-1,200 mg tab ER 12 hr Take 1 tablet by mouth as needed. - Cholecalciferol, Vitamin D3, 50 mcg (2,000 unit) cap Take 1 capsule by mouth once daily. - predniSONE (DELTASONE) 20 mg tablet Take 2 tablets by mouth once daily. - ondansetron orally disintegrating (ZOFRAN ODT) 4 mg disintegrating tablet Take 1 tablet by mouth every 6 hours as needed for nausea/vomiting. - ziprasidone (GEODON) 40 mg capsule Take 1 capsule by mouth at bedtime as needed. - jkknyt-eqszlgnl-axdaobl (CREON 24) 24,000-76,000 -120,000 unit delayed release capsule Take 3 capsules by mouth once daily. - hydrOXYzine pamoate (VISTARIL) 25 mg capsule Take 1 capsule by mouth daily at bedtime. - lisinopril (ZESTRIL) 10 mg tablet Take 1 tablet by mouth once daily. - simvastatin (ZOCOR) 20 mg tablet Take 1 tablet by mouth daily at bedtime. - Benzonatate 200 mg capsule Take 200 mg by mouth three times a day as needed. - Blood Pressure Monitor Home blood pressure monitor - cyclobenzaprine (FLEXERIL) 10 mg tablet Take 1 tablet by mouth twice daily as needed for muscle spasm. - albuterol HFA (VENTOLIN HFA) 90 mcg/actuation inhaler Inhale 2 Puffs as instructed four times daily as needed. - ferrous sulfate (SLOW FE) 140 mg (45 mg iron) TbER Take 1 tablet by mouth twice daily with meals. - mirtazapine (REMERON) [address] Talamantes. - multivitamin tablet Take 1 tablet by mouth once daily. - ARIPiprazole (ABILIFY) 5 mg tablet 5 mg once daily. - albuterol (PROVENTIL) 2.5 mg /3 mL (0.083 %) nebulizer solution Use 3 mL via nebulizer one time only for 1 dose. Use over 5-15minutes. - OXYGEN, HOME THERAPY, Inhale as instructed as directed. Patient is on 2-3 liters - COMPOUNDED PRESCRIPTION Pulse Oximetry - COMPOUNDED PRESCRIPTION nebulizer supplies (tubing) Problem List As Of Date 11/29/2024 Noted Resolved TOBACCO USE DISORDER [F17.200] 06/29/2008 Anxiety state [F41.1] 10/19/2008 Hyperlipidemia [E78.5] 01/31/2009 Essential Hypertension, Benign [I10] 09/04/2009 Gastroesophageal reflux disease [K21.9] 12/26/2009 01/10/2021 Acute gastritis without mention of hemorrhage [*10/03/2010 01/03/2015 Pancreatitis chronic 05/26/2011 08/27/2017 Chronic obstructive pulmonary disease (HCC) [J4*05/25/2012 Lumbar disc disease with radiculopathy [M51.16] 06/18/2012 Postmenopausal bleeding [N95.0] 12/07/2012 Ovarian cyst, right [N83.201] 12/27/2012 Alcoholic hepatitis without ascites [K70.10] 11/16/2013 Urine, incontinence, stress female [N39.3] 11/24/2014 HPV test positive [KAR5301] 11/24/2014 Alcohol dependence in remission (HCC) [F10.21] 07/10/2015 11/02/2018 Pulmonary emphysema (HCC) [J43.9] 11/27/2015 Irritable bowel syndrome with both constipation*08/27/2017 Alcohol use disorder, moderate, dependence (HCC*08/27/2017 DDD (degenerative disc disease), cervical [M50.*09/03/2018 Severe protein-calorie malnutrition (HCC) [E43] 01/07/2019 12/26/2022 Chronic recurrent pancreatitis (HCC) [K86.1] 01/07/2019 Reactive depression [F32.9] 04/28/2019 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 chronic pancreatitis (HCC) [K86*07/26/2019 Moderate episode of recurrent major depressive *09/01/2020 History of colonic polyps [Z86.0100] 01/10/2021 01/10/2021 Abdominal bloating [R14.0] 01/10/2021 01/10/2021 Encounter Status:Closed by MAYCOL PEMBERTON on 12/02/24[facility] 11-25-2024 Telephone encounter Note* Telephone Encounter - Juan Bloom LPN - 11/25/2024 3:57 PM EST Spoke with Gracie, discussed that [facility] staff will be talking to patient in preoperative area and will give any medications IV to help with anxiety, patient understands and has no other questions. Juan Bloom LPN [facility] Work Phone: [phone]) 663-409802-28-2025 Miscellaneous Notes* Telephone Encounter - Juan Bloom LPN - 11/25/2024 3:57 PM EST Spoke with Gracie, discussed that [facility] staff will be talking to patient in preoperative area and will give any medications IV to help with anxiety, patient understands and has no other questions. Juan Bloom LPN * Telephone Encounter - Lyric Yeung - 11/25/2024 12:24 PM EST Patient scheduled for EGD December 01 with provider. States she has anxiety and is asking provider to prescribe something she can take prior to the procedure; she has not used a medication in the past for this issue Please let her know if you do prescribe or if you won't [phone] (does not use MyChart) Lyric Yeung documented in this encounterL[facility] Telephone encounter Note * Telephone Encounter - Lyric Yeung - 11/25/2024 12:24 PM EST Patient scheduled for EGD December 01 with provider. States she has anxiety and is asking provider to prescribe something she can take prior to the procedure; she has not used a medication in the past for this issue Please let her know if you do prescribe or if you won't [phone] (does not use MyChart) Lyric Yeung [facility]02-28-2025 Telephone encounter Note* Telephone Encounter - Raisa Jimenez RN - 11/25/2024 12:00 PM EST Spoke with pt and went over prep instructions, answering all her questions until pt was comfortableand verbalized understanding Raisa Jimenez MA [facility]02-28-2025 Miscellaneous Notes* Telephone Encounter - Raisa Jimenez RN - 11/25/2024 12:00 PM EST Spoke with pt and went over prep instructions, answering all her questions until pt was comfortableand verbalized understanding Raisa Jimenez MA documented in this encounterL[facility] Nurse Note* Carroll Leblanc RN - 11/24/2024 4:09 PM EST Attempted to reach the patient at the contact number that they provided [phone] (home) . Unable to speak with patient so without identifying the patient the following information was left on their voice mail: Date of procedure, location and report time Prep instructions A message was left informing the patient/patient patient support representative they must have a responsible adult accompany them to their procedure; and remain in the endoscopy area until they are discharged. Failure to have a responsible adult accompany the patient to their procedure appointment prevents the useof sedation or anesthesia for their procedure; and can result in cancellation of the procedure NPO instructions were reviewed. Instructions to contact their primary care provider regarding their medications and which medications to stop in preparation for their procedure Instructions to completely read and follow the written instructions that they recieved regarding their procedure. Number to call with questions or concerns [phone] Number to call to cancel their procedure [phone] Carroll Leblanc RN [facility]02-27-2025 Nurse Note* Carroll Leblanc RN - 11/24/2024 4:09 PM EST Attempted to reach the patient at the contact number that they provided [phone] (home) . Unable to speak with patient so without identifying the patient the following information was left on their voice mail: Date of procedure, location and report time Prep instructions A message was left informing the patient/patient patient support representative they must have a responsible adult accompany them to their procedure; and remain in the endoscopy area until they are discharged. Failure to have a responsible adult accompany the patient to their procedure appointment prevents the useof sedation or anesthesia for their procedure; and can result in cancellation of the procedure NPO instructions were reviewed. Instructions to contact their primary care provider regarding their medications and which medications to stop in preparation for their procedure Instructions to completely read and follow the written instructions that they recieved regarding their procedure. Number to call with questions or concerns [phone] Number to call to cancel their procedure [phone] Carroll Leblanc RN documented in this encounterLake [facility] Telephone encounter Note * Telephone Encounter - Mike Phan RN - 11/21/2024 2:13 PM EST The patient has been identified by name and date of : Yes Caregiver verified no other encounters exist for this prescription request: Yes Caregiver confirmed with patient/requestor that no other refills are due, in the near future, with this provider at this time: Yes The last office visit in the department: 11/07/2024 Does the patient have a future office visit with this provider/department: Yes 12/12/2024 Requested Prescriptions Pending Prescriptions Disp Refills pantoprazole DR (PROTONIX) 40 mg tablet 90 tablet 2 Sig: Take 1 tablet by mouth once daily. Mike Phan RN November 21, 2024 2:14 PM [facility]02-24-2025 Miscellaneous Notes* Telephone Encounter - Mike Phan RN - 11/21/2024 2:13 PM EST The patient has been identified by name and date of : Yes Caregiver verified no other encounters exist for this prescription request: Yes Caregiver confirmed with patient/requestor that no other refills are due, in the near future, with this provider at this time: Yes The last office visit in the department: 11/07/2024 Does the patient have a future office visit with this provider/department: Yes 12/12/2024 Requested Prescriptions Pending Prescriptions Disp Refills pantoprazole DR (PROTONIX) 40 mg tablet 90 tablet 2 Sig: Take 1 tablet by mouth once daily. Mike Phan RN November 21, 2024 2:14 PM documented in this encounterLake [facility] Telephone encounter Note * Telephone Encounter - Larry Hastings MA - 11/09/2024 11:38 AM EST Patient notified and verbalized understanding. Larry Hastings MA [facility]02-12-2025 Miscellaneous Notes* Telephone Encounter - Larry Hastings MA - 11/09/2024 11:38 AM EST Patient notified and verbalized understanding. Larry Hastings MA * Telephone Encounter - Annmarie Elkins MD - 11/09/2024 10:22 AM EST The medication Is for anxiety, and was the medication she requested. So please ask her to use it. Regards, Annmarie Elkins MD * Telephone Encounter - Maribeth Owen LPN - 11/08/2024 12:17 PM EST Pt called in confused. There was a medication sent in for her called hydroxyzine HCI (Atarax). For the dx on this was itching and rash. Pt reports she is not having these symptoms. Pt asking was thissent in for her anxiety? Pt reports she needs something for anxiety. Please review and advise pt back. Maribeth Owen LPN documented in this encounterLake [facility]-12-2025 Telephone encounter Note * Telephone Encounter - Annmarie Elkins MD - 11/09/2024 10:22 AM EST The medication Is for anxiety, and was the medication she requested. So please ask her to use it. Regards, Annmarie Elkins MD [facility]02-12-2025 Telephone encounter Note* Telephone Encounter - Marisela Rico LPN - 11/09/2024 8:17 AM EST Called and updated patient, voiced understanding. Marisela Rico LPN November 09, 2024 8:18 AM [facility]02-12-2025 Miscellaneous Notes* Telephone Encounter - Marisela Rico LPN - 11/09/2024 8:17 AM EST Called and updated patient, voiced understanding. Marisela Rico LPN November 09, 2024 8:18 AM * Telephone Encounter - Marisela Rico LPN - 11/09/2024 8:10 AM EST ----- Message from Annmarie Elkins MD sent at 11/08/2024 5:00 PM EST ----- Chest xr is normal . Regards, Annmarie Elkins MD documented in this encounterLake [facility] Telephone encounter Note * Telephone Encounter - Marisela Rico LPN - 11/09/2024 8:10 AM EST ----- Message from Annmarie Elkins MD sent at 11/08/2024 5:00 PM EST ----- Chest xr is normal . Regards, Annmarie Elkins MD [facility]02-11-2025 Telephone encounter Note* Telephone Encounter - Maribeth Owen LPN - 11/08/2024 12:17 PM EST Pt called in confused. There was a medication sent in for her called hydroxyzine HCI (Atarax). For the dx on this was itching and rash. Pt reports she is not having these symptoms. Pt asking was thissent in for her anxiety? Pt reports she needs something for anxiety. Please review and advise pt back. Maribeth Owen LPN [facility]02-10-2025 History of Present illness Narrative* Roland Camargo RT(R) - 11/07/2024 3:00 PM EST Radiology Service Progress Note PATIENT NAME: Gracie Banuelos DATE OF SERVICE: November 07, 2024 TIME: 3:11 PM PATIENT IDENTITY VERIFICATION COMPLETED USING TWO (2) IDENTIFIERS: Name and Date of confirmedby patient verbally. FALL SCREENING: Has the patient had 2 falls in the last year or 1 fall with injury or currently using an Ambulatory Assistive Device (Walker, Cane, Wheelchair, Crutches, etc.)? No PATIENT GENDER DATA: Assigned female at . status: : No status:NO. PATIENT RELEVANT IMPLANT DATA REVIEWED: Not Applicable PATIENT PRESENTS WITH AN IMPLANTABLE OR ATTACHED POLE MAKER: No RADIOLOGY DEPARTMENT: General X-ray: Exam(s) Completed: Chest X-Ray PERIPHERAL IV DATA: Not applicable SIGNED BY: RT Oneyda(R) November 07, 2024 3:11 PM documented in this encounter[address]10-2025 NoteHNO ID: [id number] Author: ROLAND CAMARGO RT(R) Service: Radiology Author Type: Technologist Type: Progress Notes Filed: 11/07/2024 15:16 Note Text: Radiology Service Progress Note PATIENT NAME: Gracie Banuelos DATE OF SERVICE: November 07, 2024 TIME: 3:11 PM PATIENT IDENTITY VERIFICATION COMPLETED USING TWO (2) IDENTIFIERS: Name and Date of confirmed by patient verbally. FALL SCREENING: Has the patient had 2 falls in the last year or 1 fall with injury or currently using an Ambulatory Assistive Device (Walker, Cane, Wheelchair, Crutches, etc.)? No PATIENT GENDER DATA: Assigned female at . status: : No status: NO. PATIENT RELEVANT IMPLANT DATA REVIEWED: Not Applicable PATIENT PRESENTS WITH AN IMPLANTABLE OR ATTACHED POLE MAKER: No RADIOLOGY DEPARTMENT: General X-ray: Exam(s) Completed: Chest X-Ray PERIPHERAL IV DATA: Not applicable SIGNED BY: RT Oneyda(R) November 07, 2024 3:11 [facility]02-10-2025 NoteHNO ID: [id number] Author: ANNMARIE ELKINS MD Service: ? Author Type: Physician Type: Progress Notes Filed: 11/07/2024 18:00 Note Text: BESSIE Bowman is a 59-year-old woman with a past medical history of hypertension, hyperlipidemia, alcohol use disorder with moderate dependence currently only using alcohol twice a month, alcohol hepatitis and pancreatitis, tobacco abuse disorder, pulmonary emphysema, lumbar disc disease with radiculopathy, anxiety and depression. She was admitted to [facility] from 01/01 to 01/04 for pneumonia and COPD exacerbation. She was treated with Solumedrol and IV antibiotics (Rocephin and azithromycin). She was tachycardic and BP was elevated during admission. She was started on HCTZ 12.5 mg daily and Metoprolol 25 mg BID, Norvasc increased to 5 mg daily. Discharged home on prednisone burst with taper, Levaquin, Duoneb, Tessalon Perles and BP medications. Patient reports SOB and cough are much better, at baseline now. Wearing oxygen at home prior to admission, uses as needed. She is still feeling exhausted and gets lightheaded with position changes. BP is low today, she is unable to check at home. Taking all medications as prescribed except she is confused about a couple of the BP meds. Levaquin was completed and has a couple more days left of the prednisone. 05/21: She is here for a follow-up her bp is much well controlled today, she is cutting down her smoking, Is down to a half pack. Has cut down her drinking and is drinking 2 times a month. Advised not to drink at all as she has pancreatitis. Asked her to continue using the Creon. She has been using the Ativan every day 2 times and is only getting Remeron from [facility]. She says she has panic and the Ativan helps but she is not on an SSRI. She is on hydroxyzine. 08/05/24: The patient was started on lexapro in the last visit for anxiety. It made her have nausea, gave her dry heaves and diarrhea for 2 weeks, and it just did not get better. She is on ativan, but we discussed the side effects of it and the link with dementia and that we should try to cut down the medication She is on geodon in the morning and abilify at night. Her main concern is the anxiety and insomnia. Insomnia: she has been having insomnia for the past many years. She goes to bed and wakes up at the same time 10 pm and 4 am . She watches tv just before going to bed. She smokes around 11 pm. She drinks 3 cups of coffee to feel awake. Does a little exercise. She uses oxygen at night time as needed. 11/07/24: She has been working to reduce the amount of pop and coffee. She she been drinking a lot of it but it makes her feel bloated Was drinking 6 cups of pop and 6 cups of coffee. She has cut down to 2 cans a day and coffee 2 cups a day. She has been going without it. She cannot sleep very well at night time, want to refill the hydroxyzine. She feels more SOB with exertion. Notes that she thinks she is congested. Phlegm is thicker, thought she had a fever 3 days ago. She broke out in a sweat, she layed down for a little bit, woke up in a sweat and thinks her fever broke since then. She is already on abx for her blood disorder through her body. Reviewed her ct of the pancreas, there is calcification of the pancreas s/o of chronic pancreatitis,. The last time she drank was 3 weeks ago, she smoked under a pack, bad days she smoked over a pack. She is not a person to hide anything. Review of Systems Constitutional: Positive for fatigue. Negative for chills, diaphoresis, fever and unexpected weight change. HENT: Negative for congestion, postnasal drip, rhinorrhea, sinus pressure, sinus pain and sore throat. Respiratory: Shortness of breath: baseline. Cardiovascular: Negative for chest pain, palpitations and leg swelling. Gastrointestinal: Negative for abdominal pain, diarrhea, nausea and vomiting. Neurological: Positive for light-headedness (positional). Negative for dizziness, syncope, weakness, numbness and headaches. Psychiatric/Behavioral: Negative for confusion. Reviewed past medical , surgical and social history. ALLERGIES Bactrim [Sulfamethoxazole-Trimethoprim], Hydrocodone, Penicillins, and Valium [Diazepam] MEDICATIONS Cholecalciferol, Vitamin D3, 50 mcg (2,000 unit) cap Take 1 capsule by mouth once daily. predniSONE (DELTASONE) 20 mg tablet Take 2 tablets by mouth once daily. (Patient not taking: Reported on 11/02/2024) ondansetron orally disintegrating (ZOFRAN ODT) 4 mg disintegrating tablet Take 1 tablet by mouth every 6 hours as needed for nausea/vomiting. ziprasidone (GEODON) 40 mg capsule Take 1 capsule by mouth at bedtime as needed. amLODIPine (NORVASC) 5 mg tablet Take 1 tablet by mouth once daily. hobuil-tctjsnez-udqhaut (CREON 24) 24,000-76,000 -120,000 unit delayed release capsule Take 3 capsules by mouth once daily. (Patient not taking: Reported on 11/02/2024) metoprolol tartrate, short acting (more content not included)...[facility]02-10-2025 History of Present illness Narrative* Annmarie Elkins MD - 11/07/2024 2:01 PM EST BESSIE Bowman is a 59-year-old woman with a past medical history of hypertension, hyperlipidemia, alcohol use disorder with moderate dependence currently only using alcohol twice a month, alcohol hepatitis and pancreatitis, tobacco abuse disorder, pulmonary emphysema, lumbar disc disease with radiculopathy, anxiety and depression. She was admitted to [facility] from 01/01 to 01/04 for pneumonia and COPD exacerbation. She was treated with Solumedrol and IV antibiotics (Rocephin and azithromycin). She was tachycardic and BP was elevated during admission. She was started on HCTZ 12.5 mg daily and Metoprolol 25 mg BID, Norvasc increased to5 mg daily. Discharged home on prednisone burst with taper, Levaquin, Duoneb, Tessalon Perles and BP medications. Patient reports SOB and cough are much better, at baseline now. Wearing oxygen at home prior to admission, uses as needed. She is still feeling exhausted and gets lightheaded with position changes. BP is low today, she is unable to check at home. Taking all medications as prescribed except she is confused about a couple of the BP meds. Levaquin was completed and has a couple more days left of theprednisone. 05/21: She is here for a follow-up her bp is much well controlled today, she is cutting down her smoking, Is down to a half pack. Has cut down her drinking and is drinking 2 times a month. Advised notto drink at all as she has pancreatitis. Asked her to continue using the Creon. She has been using the Ativan every day 2 times and is only getting Remeron from [facility]. She says she has rocha ic and the Ativan helps but she is not on an SSRI. She is on hydroxyzine. 08/05/24: The patient was started on lexapro in the last visit for anxiety. It made her have nausea, gave her dry heaves and diarrhea for 2 weeks, and it just did not get better. She is on ativan, but we discussed the side effects of it and the link with dementia and that we should try to cut down the medication She is on geodon in the morning and abilify at night. Her main concern is the anxiety and insomnia. Insomnia: she has been having insomnia for the past many years. She goes to bed and wakes up at thesame time 10 pm and 4 am . She watches tv just before going to bed. She smokes around 11 pm. She drinks 3 cups of coffee to feel awake. Does a little exercise. She uses oxygen at night time as needed. 11/07/24: She has been working to reduce the amount of pop and coffee. She she been drinking a lot of it but it makes her feel bloated Was drinking 6 cups of pop and 6 cups of coffee. She has cut down to 2 cans a day and coffee 2 cupsa day. She has been going without it. She cannot sleep very well at night time, want to refill the hydroxyzine. She feels more SOB with exertion. Notes that she thinks she is congested. Phlegm is thicker, thought she had a fever 3 days ago. She broke out in a sweat, she layed down for a little bit, woke up in a sweat and thinks her fever brokesince then. She is already on abx for her blood disorder through her body. Reviewed her ct of the pancreas, there is calcification of the pancreas s/o of chronic pancreatitis,. The last time she drank was 3 weeks ago, she smoked under a pack, bad days she smoked over a pack. She is not a person to hide anything. Review of Systems Constitutional: Positive for fatigue. Negative for chills, diaphoresis, fever and unexpected weightchange. HENT: Negative for congestion, postnasal drip, rhinorrhea, sinus pressure, sinus pain and sore throat. Respiratory: Shortness of breath: baseline. Cardiovascular: Negative for chest pain, palpitations and leg swelling. Gastrointestinal: Negative for abdominal pain, diarrhea, nausea and vomiting. Neurological: Positive for light-headedness (positional). Negative for dizziness, syncope, weakness, numbness and headaches. Psychiatric/Behavioral: Negative for confusion. Reviewed past medical , surgical and social history. ALLERGIES Bactrim [Sulfamethoxazole-Trimethoprim], Hydrocodone, Penicillins, and Valium [Diazepam] MEDICATIONS Cholecalciferol, Vitamin D3, 50 mcg (2,000 unit) cap Take 1 capsule by mouth once daily. predniSONE (DELTASONE) 20 mg tablet Take 2 tablets by mouth once daily. (Patient not taking: Reported on 11/02/2024) ondansetron orally disintegrating (ZOFRAN ODT) 4 mg disintegrating tablet Take 1 tablet by mouth every 6 hours as needed for nausea/vomiting. ziprasidone (GEODON) 40 mg capsule Take 1 capsule by mouth at bedtime as needed. amLODIPine (NORVASC) 5 mg tablet Take 1 tablet by mouth once daily. nkooxb-uggdpaap-wkdusby (CREON 24) 24,000-76,000 -120,000 unit delayed release capsule Take 3 capsules by mouth once daily. (Patient not taking: Reported on 11/02/2024) metoprolol tartrate, short acting, (LOPRESSOR) 25 mg tablet Take 1 tablet by mouth two times a day. hydrOXYzine pamoate (VISTARIL) 25 mg capsule Take 1 capsule by mouth daily at bedtime. lisinopril (ZESTRIL) 10 mg tablet Take 1 tablet by mouth once daily. pantoprazole DR (PROTONIX) 40 mg tablet Take 1 tablet by mouth once daily. (Patient not taking: Reported on 11/02/2024) simvastatin (ZOCOR) 20 mg tablet Take 1 tablet by mouth daily at bedtime. (Patient not taking: Reported on 11/02/2024) Benzonatate 200 mg capsule Take 200 mg by mouth three times a day as needed. MUCINEX D MAXIMUM STRENGTH 120-1,200 mg tab ER 12 hr as needed. Blood Pressure Monitor Home blood pressure monitor cyclobenzaprine (FLEXERIL) 10 mg tablet Take 1 tablet by mouth twice daily as needed for muscle spasm. albuterol HFA (VENTOLIN HFA) 90 mcg/actuation inhaler Inhale 2 Puffs as instructed four times dailyas needed. ferrous sulfate (SLOW FE) 140 mg (45 mg iron) TbER Take 1 tablet by mouth twice daily with meals. mirtazapine (REMERON) [address] by [address] Talamantes. (Patient taking differently: Take 45mg by mouth daily at bedtime. Prescribed by Dr. Talamantes.) multivitamin tablet Take 1 tablet by mouth once daily. ARIPiprazole (ABILIFY) 5 mg tablet 5 mg once daily. albuterol (PROVENTIL) 2.5 mg /3 mL (0.083 %) nebulizer solution Use 3 mL via nebulizer one time only for 1 dose. Use over 5-15minutes. OXYGEN, HOME THERAPY, Inhale as instructed as directed. Patient is on 2-3 liters COMPOUNDED PRESCRIPTION Pulse Oximetry COMPOUNDED PRESCRIPTION nebulizer supplies (tubing) FAMILY HISTORY Problem Relation Age of Onset Diabetes Mother Hypertension Mother Rheumatologic disease Mother other (lung cancer) Mother Lung Cancer Mother Diabetes Sister Cervical Cancer Sister X 2 Hypertension Brother Lung Cancer Brother Social History Tobacco Use Smoking status: Former Current packs/day: 0.00 Average packs/day: 0.5 packs/day for 30.0 years (15.0 ttl pk-yrs) Types: Cigarettes Start date: 10/19/1992 Quit date: 10/19/2022 Years since quittin.0 Smokeless tobacco: Never Vaping Use Vaping status: Never Used Substance Use Topics Alcohol use: Not Currently Comment: Alcoholic - November 2020 - last drink Drug use: Not Currently Types: Marijuana Comment: rarely- last time used was Oct 2019 LMP 05/29/2010 Physical Exam Vitals reviewed. Constitutional: General: She is not in acute distress. Appearance: She is not ill-appearing or toxic-appearing. Interventions: She is not intubated. HENT: Mouth/Throat: Mouth: Mucous membranes are moist. Eyes: Conjunctiva/sclera: Conjunctivae normal. Cardiovascular: Rate and Rhythm: Normal rate and regular rhythm. Heart sounds: Normal heart sounds. Pulmonary: Effort: Pulmonary effort is normal. Tachypnea present. No accessory muscle usage, respiratory distress or retractions. She is not intubated. Breath sounds: Decreased air movement present. Examination of the right-middle field reveals decreased breath sounds. Examination of the left-middle field reveals decreased breath sounds. Decreased breath sounds (all sherman) present. No wheezing, rhonchi or rales. Skin: General: Skin is warm and dry. Neurological: Mental Status: She is alert. Psychiatric: Mood and Affect: Mood and affect normal. Cognition and Memory: Cognition normal. ASSESSMENT/PLAN: 1. Cough with sputum - ICD9: 786.2, ICD10: R05.8 (primary diagnosis) she was advised to see Linda before surgery for clearance . She does not seem to be in copd exacerbation. - MUCINEX D MAXIMUM STRENGTH 120 MG-1,200 MG TABLET,EXTENDED RELEASE 2. Essential hypertension - ICD9: 401.9, ICD10: I10 - Controlled - Recommend home blood pressure monitoring, to bring results to next visit - Encouraged sodium restriction, DASH or Mediterranean diet - Recommend regular aerobic exercise - METOPROLOL TARTRATE 25 MG TABLET - AMLODIPINE 5 MG TABLET 3. COPD with exacerbation (HCC) - ICD9: 491.21, ICD10: J44.1 - XR CHEST 2V FRONTAL/LAT Annmarie Ganta, MD [facility] Instructions* Patient Instructions* Juan Senior APRN.CNP - 11/02/2024 2:41 PM EST Schedule pain block Schedule appointment with pain management Small frequent meals, lean protein (chicken, fish, pork or turkey are preferred), low fat and high antioxidants [email or web address] for diet tips Follow up in 3-6 months [facility] History of Present illness Narrative* Juan Senior APRN.CNP - 11/02/2024 2:00 PM EST New Patient/Consult REASON FOR VISIT Gracie Banuelos is a 59 year old female who is scheduled for a consult at the request of Soila Easton. CHIEF COMPLAINT Pancreatitis My final recommendations will be communicated back to the requesting physician by the way of the shared medical record, fax, or via US Mail. HISTORY OF PRESENT ILLNESS Ms. Banuelos is a 59 year old female who presents today for consult for pancreatitis. She has past medical history of HTN, HLD, COPD, smoking, alcoholic hepatitis, IBS and chronic pancreatitis. PERTINENT PRIOR DIAGNOSTIC TESTING CT Abdomen/Pelvis 08/23/2024 IMPRESSION: No imaging evidence of acute pancreatic pathology. There are scattered coarse calcifications throughout the pancreatic head/uncinate process, a finding which can be seen with chronic pancreatitis. Otherwise, no peripancreatic stranding or other secondary signs of inflammation, or other acute finding of the abdomen or pelvis seen. FINDINGS: LOWER CHEST: No significant abnormality. HEPATOBILIARY: The liver is normal in appearance. The gallbladder is absent. No biliary ductal dilatation. SPLEEN, PANCREAS, ADRENAL GLANDS: There scattered coarse calcifications throughout the pancreatic uncinate process and pancreatic head. Otherwise, pancreas is normal in appearance with no secondary signs of inflammation seen. Spleen and adrenal glands within normal limits. KIDNEYS, URETERS, BLADDER: Symmetric parenchymal enhancement with no obstructing calculus or hydronephrosis. There is mild cortical thinning of the right kidney. Ureters and bladder within normal limits. UTERUS, ADNEXA: The uterus is unremarkable. No adnexal mass. BOWEL: No evidence of obstruction. PERITONEAL/EXTRAPERITONEAL SPACE: No free air or free fluid. LYMPH NODES: No adenopathy. VASCULAR: Grossly unremarkable. ABDOMINAL WALL: Free of hernias. MUSCULOSKELETAL: No acute osseous abnormality. An intramuscular lipoma of the anterior muscles on the left is partially imaged. [facility] 08/15/2024 HPI Gracie Banuelos is a 59 year old female who presents today for follow up on COPD exacerbation. Was seen 4 days ago with decreased oxygen saturation and shortness of breath. Started on doxycycline and prednisone. And instructed to start wearing her oxygen as she had at home. CXR did not show any infection. Finished prednisone and using antibiotic as ordered. Feeling much better at this time. Using oxygenat 2L continuously with no issues in keeping saturation up. Cough wheezing and shortness of breath all improving. Goes to [place] [facility] with next routine exam in September. Denies fever, chills, or chest pain. Does have start of yeast infection as she usually does with being on an antibiotic. Was also with some upper abdominal pain and nausea that she had ongoing for quite a while. History of alcoholic pancreatitis along with alcoholic cirrhosis. Has not been seen by GI in over a year. Last drink was 5 days ago and only 2 small cans of beer. Tries to keep it at a minimum. Lipase was slightly elevated this last time. Still with the upper abdominal pain, bloating, and nausea. Denies anyvomiting or bowel changes. [facility] 05/27/2022 HPI Gracie Banuelos is a 57 year old female here today for Alcohol induced chronic pancreatitis (Alcoholic hepatitis w/o ascites ) diarrhea and weight loss. We did EGd/ EUS which showed chronic pancreatitis and PD stone. We started her on Creon and PPI. She says that he diarrhea has improved and she is gaining weight. However, she does c/o- abdominal bloating which is more prominent after food intake. She was sober for 2 years but she again drank alcohol on her birthday. She had liver US which showed heterogenous parenchyma. However, her LFT and CBC is unremarkable. ASSESSMENT: 57 year old female patient who is in our clinic with chronic pancreatitis (ETOH related). Her liver US showed heterogenous liver parenchyma but her LFT and CBC is normal. She continues to smoke. And recently she again drank alcohol PLAN: Advised to quit drinking. Also explained to her that she has high risk to develop pancreatic cancer if she continues to smoke. Continue with Creon. SOCIAL HISTORY Social History Tobacco Use Smoking status: Former Current packs/day: 0.00 Average packs/day: 0.5 packs/day for 30.0 years (15.0 ttl pk-yrs) Types: Cigarettes Start date: 10/19/1992 Quit date: 10/19/2022 Years since quittin.0 Smokeless tobacco: Never Vaping Use Vaping status: Never Used Substance Use Topics Alcohol use: Not Currently Comment: Alcoholic - November 2020 - last drink Drug use: Not Currently Types: Marijuana Comment: rarely- last time used was Oct 2019 SYMPTOMS History of alcohol induced pancreatitis, last saw GI in 2021 Complains of daily abdominal pain, bloating and nausea Denies vomiting Having heartburn daily despite taking Pantoprazole once a day Smokes a pack of cigarettes a day History of excessive ETOH, now says she only drinks a few beers here and there, had a whisky and coke the other day She has no interest in quitting Bowel movements are normal and regular, once or twice a day Has had Creon in the past and is not interested in restarting Creon or any other enzyme replacementmedications Says she had severe diarrhea in the past and Creon helped with this but she stopped taking it due to bloating and constipation Has RUQ pain multiple times per day, sometimes takes Ibuprofen for this Denies family history of pancreatitis, gallbladder disease or pancreatic cancer She had her gallbladder removed in 2020 GASTROINTESTINAL REVIEW OF SYSTEMS Difficulty swallowing / foods sticking in throat: No Heartburn: Yes Chest Pain: No Filling up quickly at meals: Yes Loss of appetite: No Nausea: Yes sometimes Vomiting: No Abdominal pain: Yes Bloody or black, bowel movements: No Constipation: Yes sometimes Diarrhea: No Vomiting blood: No Recent change in weight: No PHYSICAL EXAMINATION BP 140/71 Pulse 84 Ht 160 cm (5' 3) Wt 62.6 kg (138 lb) LMP 05/29/2010 SpO2 97% BMI 24.45 kg/m General appearance: cooperative, in no acute distress Neurological: alert and oriented x3, exam grossly non-focal Abdomen: Abdomen soft, Bowel sounds normal, generalized abdominal tenderness and guarding Extremities: Extremities normal. No deformities, edema, or skin discoloration Skin:no rashes, lesions, or jaundice Assessment IMPRESSION AND PLAN Ms. Banuelos is a 59 year old female who presents today for consult for pancreatitis. She has past medical history of HTN, HLD, COPD, smoking, alcoholic hepatitis, IBS and chronic pancreatitis. History of chronic pancreatitis r/t ETOH. Last saw GI in 2021. Was taking Creon at that time. Has since stopped Creon due to bloating and constipation. Not interested in PERT at this time. Complains of daily RUQ pain, nausea and bloating. Still daily smoking and ETOH, unwilling to quit at this time. Stressed importance of complete cessation. Discussed diet and lifestyle modifications at length. Orders placed for CPB and consult to pain management. Follow up in 3-6 months. K86.0 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 chronic pancreatitis (HCC) (primary encounter diagnosis) K86.1 Chronic recurrent pancreatitis (HCC) R10.11, G89.29 Chronic RUQ pain R14.0 Abdominal bloating R11.0 Nausea K21.9 Gastroesophageal reflux disease without esophagitis Juan Senior APRN.CNP November 02, 2024 12:34 PM documented in [facility] NoteHNO ID: [id number] Author: JUAN SENIOR APRN.CNP Service: ? Author Type: Nurse Practitioner Type: Progress Notes Filed: 11/03/2024 10:01 Note Text: New Patient/Consult REASON FOR VISIT Gracie Banuelos is a 59 year old female who is scheduled for a consult at the request of Soila Easton. CHIEF COMPLAINT Pancreatitis My final recommendations will be communicated back to the requesting physician by the way of the shared medical record, fax, or via US Mail. HISTORY OF PRESENT ILLNESS Ms. Banuelos is a 59 year old female who presents today for consult for pancreatitis. She has past medical history of HTN, HLD, COPD, smoking, alcoholic hepatitis, IBS and chronic pancreatitis. PERTINENT PRIOR DIAGNOSTIC TESTING CT Abdomen/Pelvis 08/23/2024 IMPRESSION: No imaging evidence of acute pancreatic pathology. There are scattered coarse calcifications throughout the pancreatic head/uncinate process, a finding which can be seen with chronic pancreatitis. Otherwise, no peripancreatic stranding or other secondary signs of inflammation, or other acute finding of the abdomen or pelvis seen. FINDINGS: LOWER CHEST: No significant abnormality. HEPATOBILIARY: The liver is normal in appearance. The gallbladder is absent. No biliary ductal dilatation. SPLEEN, PANCREAS, ADRENAL GLANDS: There scattered coarse calcifications throughout the pancreatic uncinate process and pancreatic head. Otherwise, pancreas is normal in appearance with no secondary signs of inflammation seen. Spleen and adrenal glands within normal limits. KIDNEYS, URETERS, BLADDER: Symmetric parenchymal enhancement with no obstructing calculus or hydronephrosis. There is mild cortical thinning of the right kidney. Ureters and bladder within normal limits. UTERUS, ADNEXA: The uterus is unremarkable. No adnexal mass. BOWEL: No evidence of obstruction. PERITONEAL/EXTRAPERITONEAL SPACE: No free air or free fluid. LYMPH NODES: No adenopathy. VASCULAR: Grossly unremarkable. ABDOMINAL WALL: Free of hernias. MUSCULOSKELETAL: No acute osseous abnormality. An intramuscular lipoma of the anterior muscles on the left is partially imaged. [facility] 08/15/2024 [facility] Gracie Banuelos is a 59 year old female who presents today for follow up on COPD exacerbation. Was seen 4 days ago with decreased oxygen saturation and shortness of breath. Started on doxycycline and prednisone. And instructed to start wearing her oxygen as she had at home. CXR did not show any infection. Finished prednisone and using antibiotic as ordered. Feeling much better at this time. Using oxygen at 2L continuously with no issues in keeping saturation up. Cough wheezing and shortness of breath all improving. Goes to [place] [facility] with next routine exam in September. Denies fever, chills, or chest pain. Does have start of yeast infection as she usually does with being on an antibiotic. Was also with some upper abdominal pain and nausea that she had ongoing for quite a while. History of alcoholic pancreatitis along with alcoholic cirrhosis. Has not been seen by GI in over a year. Last drink was 5 days ago and only 2 small cans of beer. Tries to keep it at a minimum. Lipase was slightly elevated this last time. Still with the upper abdominal pain, bloating, and nausea. Denies any vomiting or bowel changes. [facility] 05/27/2022 HPI Gracie Banuelos is a 57 year old female here today for Alcohol induced chronic pancreatitis (Alcoholic hepatitis w/o ascites ) diarrhea and weight loss. We did EGd/ EUS which showed chronic pancreatitis and PD stone. We started her on Creon and PPI. She says that he diarrhea has improved and she is gaining weight. However, she does c/o- abdominal bloating which is more prominent after food intake. She was sober for 2 years but she again drank alcohol on her birthday. She had liver US which showed heterogenous parenchyma. However, her LFT and CBC is unremarkable. ASSESSMENT: 57 year old female patient who is in our clinic with chronic pancreatitis (ETOH related). Her liver US showed heterogenous liver parenchyma but her LFT and CBC is normal. She continues to smoke. And recently she again drank alcohol PLAN: Advised to quit drinking. Also explained to her that she has high risk to develop pancreatic cancer if she continues to smoke. Continue with Creon. SOCIAL HISTORY Social History Tobacco Use Smoking status: Former Current packs/day: 0.00 Average packs/day: 0.5 packs/day for 30.0 years (15.0 ttl pk-yrs) Types: Cigarettes Start date: 10/19/1992 Quit date: 10/19/2022 Years since quittin.0 Smokeless tobacco: Never Vaping Use Vaping status: Never Used Substance Use Topics Alcohol use: Not Currently Comment: Alcoholic - November 2020 - last drink Drug use: Not Currently Types: Marijuana Comment: rarely- last time used was Oct 2019 SYMPTOMS History (more content not included)...[facility]01-31-2025 Telephone encounter Note* Telephone Encounter - Mihaela Cheng RN - 10/28/2024 12:40 PM EST The patient has been identified by name and date of : Yes Caregiver verified no other encounters exist for this prescription request: Yes Caregiver confirmed with patient/requestor that no other refills are due, in the near future, with this provider at this time: Yes The last office visit in the department: 08/15/2024 Does the patient have a future office visit with this provider/department: Yes 11/07/2024 Requested Prescriptions Pending Prescriptions Disp Refills Cholecalciferol, Vitamin D3, 50 mcg (2,000 unit) cap 90 capsule 2 Sig: Take 1 capsule by mouth once daily. Mihaela Cheng RN [facility]01-31-2025 Miscellaneous Notes* Telephone Encounter - Mihaela Cheng RN - 10/28/2024 12:40 PM EST The patient has been identified by name and date of : Yes Caregiver verified no other encounters exist for this prescription request: Yes Caregiver confirmed with patient/requestor that no other refills are due, in the near future, with this provider at this time: Yes The last office visit in the department: 08/15/2024 Does the patient have a future office visit with this provider/department: Yes 11/07/2024 Requested Prescriptions Pending Prescriptions Disp Refills Cholecalciferol, Vitamin D3, 50 mcg (2,000 unit) cap 90 capsule 2 Sig: Take 1 capsule by mouth once daily. Mihaela Cheng RN documented in [facility] encounterL[facility] History of Present illness Narrative* Reef Nadeen Duran, RT(R) - 08/23/2024 9:20 AM EST Radiology Service Progress Note DATE OF SERVICE: August 23, 2024 TIME: 10:05 AM PATIENT IDENTITY VERIFICATION COMPLETED USING TWO (2) STANDARD IDENTIFIERS: Name and Date of confirmed by patient verbally. FALL SCREENING: Has the patient had 2 falls in the last year or 1 fall with injury or currently using an Ambulatory Assistive Device (Walker, Cane, Wheelchair, Crutches, etc.)? No PATIENT GENDER DATA: Female. status: : No status: NO. PATIENT RELEVANT IMPLANT DATA REVIEWED: Yes PATIENT PRESENTS WITH AN IMPLANTABLE OR ATTACHED POLE MAKER: No ALLERGIES: Reviewed and unchanged CONTRAST ALLERGY: NO. EXAM: CT -CONTRAST INDUCED NEPHROPATHY RISK FACTORS: Patient age > 60 years CREATININE: Creatinine Date Value Ref Range Status 08/12/2024 0.82 0.58 - 0.96 mg/dL Final 01/11/2024 0.84 0.58 - 0.96 mg/dL Final 02/19/2023 0.82 0.58 - 0.96 mg/dL Final Estimated Glomerular Filtration Rate Date Value Ref Range Status 08/12/2024 81 >=60 mL/min/1.73m Final Comment: Estimated Glomerular Filtration Rate (eGFR) is calculated using the 2020 CKD-EPI creatinine equation. This equation utilizes serum creatinine, sex, and age as parameters. The creatinine assay has traceable calibration to isotope dilution- mass spectrometry. Refer to KDIGO guidelines for clinical interpretation. In patients with unstable renal function, e.g. those with acute kidney injury, the eGFRmay not accurately reflect actual GFR. eGFR- Date Value Ref Range Status 03/26/2021 >60 Final P.O.C.T. RESULTS: POC done: Yes, See Lab Tab August 23, 2024 TREATMENT: N/A PERIPHERAL IV DATA: Ambulatory: A peripheral IV was started in the Left antecubital site with a Angio cath: 22 gauge. RADIOLOGY DEPARTMENT: CT; Exam(s) Completed: Abdomen/Pelvis SIGNATURE: ASTRID Joyce) PATIENT NAME: Gracie Banuelos DATE: August 23, 2024 TIME: 10:05 AM documented in this encounterLake [facility]24 NoteHNO ID: [id number] Author: NADEEN BOBBY RT(R) Service: ? Author Type: Sales Appointment Coordinator Type: Progress Notes Filed: 08/23/2024 10:05 Note Text: Radiology Service Progress Note DATE OF SERVICE: August 23, 2024 TIME: 10:05 AM PATIENT IDENTITY VERIFICATION COMPLETED USING TWO (2) STANDARD IDENTIFIERS: Name and Date of confirmed by patient verbally. FALL SCREENING: Has the patient had 2 falls in the last year or 1 fall with injury or currently using an Ambulatory Assistive Device (Walker, Cane, Wheelchair, Crutches, etc.)? No PATIENT GENDER DATA: Female. status: : No status: NO. PATIENT RELEVANT IMPLANT DATA REVIEWED: Yes PATIENT PRESENTS WITH AN IMPLANTABLE OR ATTACHED POLE MAKER: No ALLERGIES: Reviewed and unchanged CONTRAST ALLERGY: NO. EXAM: CT -CONTRAST INDUCED NEPHROPATHY RISK FACTORS: Patient age > 60 years CREATININE: Creatinine Date Value Ref Range Status 08/12/2024 0.82 0.58 - 0.96 mg/dL Final 01/11/2024 0.84 0.58 - 0.96 mg/dL Final 02/19/2023 0.82 0.58 - 0.96 mg/dL Final Estimated Glomerular Filtration Rate Date Value Ref Range Status 08/12/2024 81 >=60 mL/min/1.73m? Final Comment: Estimated Glomerular Filtration Rate (eGFR) is calculated using the 2020 CKD-EPI creatinine equation. This equation utilizes serum creatinine, sex, and age as parameters. The creatinine assay has traceable calibration to isotope dilution-mass spectrometry. Refer to KDIGO guidelines for clinical interpretation. In patients with unstable renal function, e.g. those with acute kidney injury, the eGFR may not accurately reflect actual GFR. eGFR- Date Value Ref Range Status 03/26/2021 >60 Final P.O.C.T. RESULTS: POC done: Yes, See Lab Tab August 23, 2024 TREATMENT: N/A PERIPHERAL IV DATA: Ambulatory: A peripheral IV was started in the Left antecubital site with a Angio cath: 22 gauge. RADIOLOGY DEPARTMENT: CT; Exam(s) Completed: Abdomen/Pelvis SIGNATURE: RT Isiah(R) PATIENT NAME: Gracie Banuelos DATE: August 23, 2024 TIME: 10:05 [facility]11-22-2024 Telephone encounter Note* Telephone Encounter - Maribeth Owen LPN - 08/19/2024 11:35 AM EST Pt called in to reports she is still getting the Lexapro in her packs. I called [facility] and they will pick her packs up today and remove the Lexapro and then deliver back to pt today. Pt notified. Maribeth Owen LPN [facility]11-22-2024 Miscellaneous Notes* Telephone Encounter - Maribeth Owen LPN - 08/19/2024 11:35 AM EST Pt called in to reports she is still getting the Lexapro in her packs. I called [facility] and they will pick her packs up today and remove the Lexapro and then deliver back to pt today. Pt notified. Maribeth Owen LPN documented in [facility] encounterL[facility] Telephone encounter Note * Telephone Encounter - Soila Easton APRN.IGOR - 08/17/2024 7:19 AM EST PDMP website checked and validated. All prescriptions have been APPROPRIATELY filled. No suspiciousactivity was identified. 08/17/2024 by Soila Easton APRN.IGOR [facility]11-20-2024 Miscellaneous Notes* Telephone Encounter - Soila Easton APRN.CNP - 08/17/2024 7:19 AM EST [facility]. All prescriptions have been APPROPRIATELY filled. No suspiciousactivity was identified. 08/17/2024 by Soila Easton APRN.CNP * Telephone Encounter - Catherine Pennington LPN - 08/16/2024 9:29 AM EST Prescription Refill Information The patient has been identified by name and date of : Yes Caregiver verified no other encounters exist for this prescription request: Yes Caregiver confirmed with patient/requestor that no other refills are due, in the near future, with this provider at this time: Yes The last office visit in the department: 08/15/24 Does the patient have a future office visit with this provider/department: Yes 11/07/24 Requested Prescriptions Pending Prescriptions Disp Refills LORazepam (ATIVAN) 0.5 mg 30 tablet 0 Sig: Take 1 tablet by mouth two times a day for 30 days. Catherine Pennington LPN August 16, 2024 9:30 AM documented in this encounterL[facility] Telephone encounter Note * Telephone Encounter - Catherine Pennington LPN - 08/16/2024 9:29 AM EST Prescription Refill Information The patient has been identified by name and date of : Yes Caregiver verified no other encounters exist for this prescription request: Yes Caregiver confirmed with patient/requestor that no other refills are due, in the near future, with this provider at this time: Yes The last office visit in the department: 08/15/24 Does the patient have a future office visit with this provider/department: Yes 11/07/24 Requested Prescriptions Pending Prescriptions Disp Refills LORazepam (ATIVAN) 0.5 mg 30 tablet 0 Sig: Take 1 tablet by mouth two times a day for 30 days. Catherine Pennington LPN August 16, 2024 9:30 AM [facility]11-18-2024 NoteHNO ID: [id number] Author: SOILA EASTON APRN.DAYTIME CAREGIVER Service: ? Author Type: Nurse Practitioner Type: Progress Notes Filed: 08/15/2024 12:40 Note Text: CC: Patient presents with: Recheck: Follow up SOB HPI Gracie Banuelos is a 59 year old female who presents today for follow up on COPD exacerbation. Was seen 4 days ago with decreased oxygen saturation and shortness of breath. Started on doxycycline and prednisone. And instructed to start wearing her oxygen as she had at home. CXR did not show any infection. Finished prednisone and using antibiotic as ordered. Feeling much better at this time. Using oxygen at 2L continuously with no issues in keeping saturation up. Cough wheezing and shortness of breath all improving. Goes to [place] [facility] with next routine exam in September. Denies fever, chills, or chest pain. Does have start of yeast infection as she usually does with being on an antibiotic. Was also with some upper abdominal pain and nausea that she had ongoing for quite a while. History of alcoholic pancreatitis along with alcoholic cirrhosis. Has not been seen by GI in over a year. Last drink was 5 days ago and only 2 small cans of beer. Tries to keep it at a minimum. Lipase was slightly elevated this last time. Still with the upper abdominal pain, bloating, and nausea. Denies any vomiting or bowel changes. REVIEW OF SYSTEMS General: no fevers, no chills, no night sweats, no recurrent infections, no change in appetite, no change in energy, and no significant changes in weight Respiratory: no cough, no wheezing, no shortness of breath, no hemoptysis Cardiovascular: no chest pain, no chest pressure, no palpitations, and no swelling PAST MEDICAL HISTORY Diagnosis Date Acute exacerbation of chronic obstructive airways disease (HCC) Alcohol dependence in remission ([facility]) 07/10/2015 Alcohol use disorder 08/27/2017 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 pancreatitis Alcoholic hepatitis 05/18/2012 Alcoholic liver disease ([facility]) 11/16/2013 Anemia Anxiety with depression Asthma Chronic hypoxemic respiratory failure (HCC) COPD (chronic obstructive pulmonary disease) ([facility]) 05/25/2012 DDD (degenerative disc disease), cervical 09/03/2018 Diaphragmatic hernia without mention of obstruction or gangrene Diarrhea Diverticulosis GERD (gastroesophageal reflux disease) Hemorrhoids HLD (hyperlipidemia) HTN (hypertension) Human papillomavirus in conditions classified elsewhere and of unspecified site Irritable bowel syndrome with both constipation and diarrhea 08/27/2017 Lumbar disc disease with radiculopathy 06/18/2012 Other and unspecified alcohol dependence, unspecified drinking behavior Ovarian cyst, right 12/27/2012 Pancreatitis chronic 05/26/2011 Pneumonia of both lungs due to infectious organism 2017 Severe protein-calorie malnutrition (HCC) 01/07/2019 Stage 3 severe COPD by GOLD classification ([facility]) 2018 Tobacco use greater than 30 years Unspecified hemorrhoids without mention of complication Urine, incontinence, stress female 11/24/2014 PAST SURGICAL HISTORY Procedure Laterality Date APPENDECTOMY at age 14 COLONOSCOPY 04/15/[address], [address] Paul Perez. COLONOSCOPY 01/23/2015 2-Tubular adenomas. Dr. Víctor Lopez. COLONOSCOPY 07/29/2017 normal COLONOSCOPY - DIAGNOSTIC 01/10/2021 10 yr interval EGD 10/03/[address] Paul Perez. EGD 07/29/2017 mild gastritis, otherwise normal EGD 01/10/2021 EGD EUS 12/05/2019 mild gastritis, chronic pancreatitis with PD stone L'SCOPE CHOLECYSTECTOMY 06/14/2021 TUBAL LIGATION HX 1986 ALLERGIES Bactrim [Sulfamethoxazole-Trimethoprim], Hydrocodone, Penicillins, and Valium [Diazepam] MEDICATIONS predniSONE (DELTASONE) 20 mg tablet Take 2 tablets by mouth once daily. doxycycline (VIBRA-TABS) 100 mg tablet Take 1 tablet by mouth two times a day for 10 days. ondansetron orally disintegrating (ZOFRAN ODT) 4 mg disintegrating tablet Take 1 tablet by mouth every 6 hours as needed for nausea/vomiting. ziprasidone (GEODON) 40 mg capsule Take 1 capsule by mouth at bedtime as needed. suvorexant 10 mg tab Take 1 tablet by mouth once daily for 90 days. amLODIPine (NORVASC) 5 mg tablet Take 1 tablet by mouth once daily. xvkkjx-zbtloqpq-rqbnvdf (CREON 24) 24,000-76,000 -120,000 unit delayed release capsule Take 3 capsules by mouth once daily. metoprolol tartrate, short acting, (LOPRESSOR) 25 mg tablet Take 1 tablet by mouth two times a day. hydrOXYzine pamoate (VISTARIL) 25 mg capsule Take 1 capsule by mouth daily at bedtime. lisinopril (ZESTRIL) 10 mg tablet Take 1 tablet by mouth once daily. pantoprazole DR (PROTONIX) 40 mg tablet Take 1 tablet by mouth once daily. simvastatin (ZOCOR) 20 mg tablet Take 1 tablet by mouth daily at bedtime. Cholecalciferol, Vitamin D3, 50 mcg (2,000 unit) cap Take 1 capsule by mouth once daily. Benzonatate 200 mg capsule Take (more content not included)...[facility]11-18-2024 History of Present illness Narrative* Soila Easton APRN.DAYTIME CAREGIVER - 08/15/2024 11:36 AM EST CC: Patient presents with: Recheck: Follow up SOB HPI Gracie Banuelos is a 59 year old female who presents today for follow up on COPD exacerbation. Was seen 4 days ago with decreased oxygen saturation and shortness of breath. Started on doxycycline and prednisone. And instructed to start wearing her oxygen as she had at home. CXR did not show any infection. Finished prednisone and using antibiotic as ordered. Feeling much better at this time. Using oxygenat 2L continuously with no issues in keeping saturation up. Cough wheezing and shortness of breath all improving. Goes to [place] [facility] with next routine exam in September. Denies fever, chills, or chest pain. Does have start of yeast infection as she usually does with being on an antibiotic. Was also with some upper abdominal pain and nausea that she had ongoing for quite a while. History of alcoholic pancreatitis along with alcoholic cirrhosis. Has not been seen by GI in over a year. Last drink was 5 days ago and only 2 small cans of beer. Tries to keep it at a minimum. Lipase was slightly elevated this last time. Still with the upper abdominal pain, bloating, and nausea. Denies anyvomiting or bowel changes. REVIEW OF SYSTEMS General: no fevers, no chills, no night sweats, no recurrent infections, no change in appetite, no change in energy, and no significant changes in weight Respiratory: no cough, no wheezing, no shortness of breath, no hemoptysis Cardiovascular: no chest pain, no chest pressure, no palpitations, and no swelling PAST MEDICAL HISTORY Diagnosis Date Acute exacerbation of chronic obstructive airways disease (HCC) Alcohol dependence in remission ([facility]) 07/10/2015 Alcohol use disorder 08/27/2017 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 pancreatitis Alcoholic hepatitis 05/18/2012 Alcoholic liver disease ([facility]) 11/16/2013 Anemia Anxiety with depression Asthma Chronic hypoxemic respiratory failure ([facility]) COPD (chronic obstructive pulmonary disease) ([facility]) 05/25/2012 DDD (degenerative disc disease), cervical 09/03/2018 Diaphragmatic hernia without mention of obstruction or gangrene Diarrhea Diverticulosis GERD (gastroesophageal reflux disease) Hemorrhoids HLD (hyperlipidemia) HTN (hypertension) Human papillomavirus in conditions classified elsewhere and of unspecified site Irritable bowel syndrome with both constipation and diarrhea 08/27/2017 Lumbar disc disease with radiculopathy 06/18/2012 Other and unspecified alcohol dependence, unspecified drinking behavior Ovarian cyst, right 12/27/2012 Pancreatitis chronic 05/26/2011 Pneumonia of both lungs due to infectious organism 2017 Severe protein-calorie malnutrition (HCC) 01/07/2019 Stage 3 severe COPD by GOLD classification ([facility]) 2018 Tobacco use greater than 30 years Unspecified hemorrhoids without mention of complication Urine, incontinence, stress female 11/24/2014 PAST SURGICAL HISTORY Procedure Laterality Date APPENDECTOMY at age 14 COLONOSCOPY 04/15/[address], [address] Paul Perez. COLONOSCOPY 01/23/2015 2-Tubular adenomas. Dr. Víctor Lopez. COLONOSCOPY 07/29/2017 normal COLONOSCOPY - DIAGNOSTIC 01/10/2021 10 yr interval EGD 10/03/[address] Paul Perez. EGD 07/29/2017 mild gastritis, otherwise normal EGD 01/10/2021 EGD EUS 12/05/2019 mild gastritis, chronic pancreatitis with PD stone L'SCOPE CHOLECYSTECTOMY 06/14/2021 TUBAL LIGATION HX 1986 ALLERGIES Bactrim [Sulfamethoxazole-Trimethoprim], Hydrocodone, Penicillins, and Valium [Diazepam] MEDICATIONS predniSONE (DELTASONE) 20 mg tablet Take 2 tablets by mouth once daily. doxycycline (VIBRA-TABS) 100 mg tablet Take 1 tablet by mouth two times a day for 10 days. ondansetron orally disintegrating (ZOFRAN ODT) 4 mg disintegrating tablet Take 1 tablet by mouth every 6 hours as needed for nausea/vomiting. ziprasidone (GEODON) 40 mg capsule Take 1 capsule by mouth at bedtime as needed. suvorexant 10 mg tab Take 1 tablet by mouth once daily for 90 days. amLODIPine (NORVASC) 5 mg tablet Take 1 tablet by mouth once daily. buruml-zgenkawj-zrifdzs (CREON 24) 24,000-76,000 -120,000 unit delayed release capsule Take 3 capsules by mouth once daily. metoprolol tartrate, short acting, (LOPRESSOR) 25 mg tablet Take 1 tablet by mouth two times a day. hydrOXYzine pamoate (VISTARIL) 25 mg capsule Take 1 capsule by mouth daily at bedtime. lisinopril (ZESTRIL) 10 mg tablet Take 1 tablet by mouth once daily. pantoprazole DR (PROTONIX) 40 mg tablet Take 1 tablet by mouth once daily. simvastatin (ZOCOR) 20 mg tablet Take 1 tablet by mouth daily at bedtime. Cholecalciferol, Vitamin D3, 50 mcg (2,000 unit) cap Take 1 capsule by mouth once daily. Benzonatate 200 mg capsule Take 200 mg by mouth three times a day as needed. (Patient not taking: Reported on 08/05/2024) MUCINEX D MAXIMUM STRENGTH 120-1,200 mg tab ER 12 hr as needed. Blood Pressure Monitor Home blood pressure monitor cyclobenzaprine (FLEXERIL) 10 mg tablet Take 1 tablet by mouth twice daily as needed for muscle spasm. albuterol HFA (VENTOLIN HFA) 90 mcg/actuation inhaler Inhale 2 Puffs as instructed four times dailyas needed. ferrous sulfate (SLOW FE) 140 mg (45 mg iron) TbER Take 1 tablet by mouth twice daily with meals. mirtazapine (REMERON) [address] Talamantes. (Patient taking differently: Take 45mg by mouth daily at bedtime. Prescribed by Dr. Talamantes.) multivitamin tablet Take 1 tablet by mouth once daily. ARIPiprazole (ABILIFY) 5 mg tablet 5 mg once daily. albuterol (PROVENTIL) 2.5 mg /3 mL (0.083 %) nebulizer solution Use 3 mL via nebulizer one time only for 1 dose. Use over 5-15minutes. OXYGEN, HOME THERAPY, Inhale as instructed as directed. Patient is on 2-3 liters COMPOUNDED PRESCRIPTION Pulse Oximetry COMPOUNDED PRESCRIPTION nebulizer supplies (tubing) FAMILY HISTORY Problem Relation Age of Onset Diabetes Mother Hypertension Mother Rheumatologic disease Mother other (lung cancer) Mother Lung Cancer Mother Diabetes Sister Cervical Cancer Sister X 2 Hypertension Brother Lung Cancer Brother Social History Tobacco Use Smoking status: Former Current packs/day: 0.00 Average packs/day: 0.5 packs/day for 30.0 years (15.0 ttl pk-yrs) Types: Cigarettes Start date: 10/19/1992 Quit date: 10/19/2022 Years since quittin.8 Smokeless tobacco: Never Vaping Use Vaping status: Never Used Substance Use Topics Alcohol use: Not Currently Comment: Alcoholic - November 2020 - last drink Drug use: Not Currently Types: Marijuana Comment: rarely- last time used was Oct 2019 PHYSICAL EXAM BP 112/78 Pulse 80 Resp 16 Wt 64.4 kg (142 lb) LMP 05/29/2010 SpO2 93% BMI 25.15 kg/m General Appearance: well appearing, in no acute distress, alert Eyes: conjunctiva pink and moist, no icterus, sclera white, non-injected Lungs: Lungs clear to auscultation outside of some wheezing that cleared with cough. No rhonchi, rales. Heart: RRR without murmur, gallop, or rubs. No ectopy Abdomen: Abdomen soft but distended, . Bowel sounds normal. No masses, organomegaly. Generalized abdominal tenderness with grimacing, Worse to RUQ. No rigidity, guarding, or rebound pain. Health maintenance reviewed with patient: HIV Screening Never done Alpha-1 Antitrypsin Deficiency Screening Never done Shingrix Vaccine(1 of 2) Never done Cervical Cancer Screening due on 07/05/2020 Mammogram Screening due on 08/28/2021 BP Controlled (<130/80) due on 04/17/2023 RSV Vaccine(1 - Risk 60-74 years 1-dose series) Never done Colorectal Cancer Screening due on 01/11/2024 Covid-19 Vaccine(3 - 2023- season) due on 05/29/2024 Annual PCP Team Chronic Disease Visit due on 08/10/2025 Diabetes Screening due on 08/12/2027 Pneumococcal Vaccine(3 of 3 - PPSV23 or PCV20) due on 2028 Lipid Screening due on 01/10/2029 Spirometry Completed Influenza Vaccine Completed Hepatitis C Screening Completed DTaP,Tdap,Td Vaccine Discontinued DATA REVIEWED: Most recent labs ASSESSMENT/PLAN: 1. Chronic obstructive pulmonary disease, unspecified COPD type (HCC) - ICD9: 496, ICD10: J44.9 (primary diagnosis) Exacerbation resolving. Follow up for any further concerns Continue with recommendations by pulmonology 2. Generalized abdominal tenderness without rebound tenderness - ICD9: 789.67, ICD10: R10.817 With the elevated lipase, history of pancreatitis, and symptoms pancreatitis is a concern. US canceled and CT ordered to further evaluate the pancreas. With the generalized tenderness will do both ctof the abdomen and pelvis. - CT ABD/PEL W IVCON - IV CONTRAST (RADIOLOGY PROCEDURE) - ENTERIC CONTRAST (RADIOLOGY PROCEDURE) 3. Upper abdominal pain - ICD9: 789.09, ICD10: R10.10 As above - CT ABD/PEL W IVCON - IV CONTRAST (RADIOLOGY PROCEDURE) - ENTERIC CONTRAST (RADIOLOGY PROCEDURE) 4. Elevated lipase - ICD9: 790.5, ICD10: R74.8 See #2 - CT ABD/PEL W IVCON - IV CONTRAST (RADIOLOGY PROCEDURE) - ENTERIC CONTRAST (RADIOLOGY PROCEDURE) 5. Nausea - ICD9: 787.02, ICD10: R11.0 See #2 - CT ABD/PEL W IVCON - IV CONTRAST (RADIOLOGY PROCEDURE) - ENTERIC CONTRAST (RADIOLOGY PROCEDURE) 6. Alcoholic hepatitis without ascites - ICD9: 571.1, ICD10: K70.10 Has not been evaluated in well over a year. Previous without ascites. - CT ABD/PEL W IVCON - IV CONTRAST (RADIOLOGY PROCEDURE) - ENTERIC CONTRAST (RADIOLOGY PROCEDURE) 7. Alcohol use disorder, moderate, dependence (HCC) - ICD9: 303.90, ICD10: F10.20 Reports minimal use of alcohol but aware 2 drinks in one day is still considered too much for females. 8. Acute pancreatitis, unspecified complication status, unspecified pancreatitis type - ICD9: 577.0, ICD10: K85.90 See #2 - CT ABD/PEL W IVCON Prescription instructions reviewed with patient as applicable. Potential red flag symptoms discussed with the patient. Reviewed appropriate action plan to take if red flag symptoms occur. Patient agreeable to treatment plan. Soila Easton APRN.DAYTIME CAREGIVER documented in [facility] encounterL[facility] Telephone encounter Note * Telephone Encounter - Eva Martines RN - 08/11/2024 3:26 PM EST Patient notified of results and provider's instructions. Patient verbalizes understanding. Eva Martines RN [facility]11-14-2024 Miscellaneous Notes* Telephone Encounter - Eva Martines RN - 08/11/2024 3:26 PM EST Patient notified of results and provider's instructions. Patient verbalizes understanding. Eva Martines RN * Telephone Encounter - Maribeth Owen LPN - 08/11/2024 3:21 PM EST .Left a message for pt to call the office and ask to speak to a nurse. Maribeth Owen LPN * Telephone Encounter - Maribeth Owen LPN - 08/11/2024 3:21 PM EST ----- Message from Soila Easton APRN.CNP sent at 08/11/2024 3:16 PM EST ----- No pneumonia on chest xray. Continue current treatment and upcoming follow up appointment. Thank you Soila Easton APRN.DAYTIME CAREGIVER documented in this encounterLake [facility]11-[facility] Telephone encounter Note * Telephone Encounter - Maribeth Owen LPN - 08/11/2024 3:21 PM EST .Left a message for pt to call the office and ask to speak to a nurse. Maribeth Owen LPN [facility]11-14-2024 Telephone encounter Note* Telephone Encounter - Maribeth Owen LPN - 08/11/2024 3:21 PM EST ----- Message from Soila Easton APRN.CNP sent at 08/11/2024 3:16 PM EST ----- No pneumonia on chest xray. Continue current treatment and upcoming follow up appointment. Thank you Soila Easton APRN.DAYTIME CAREGIVER [facility]11-13-2024 History of Present illness Narrative* Contreras Mack, RT(R) - 08/10/2024 5:40 PM EST Radiology Service Progress Note PATIENT NAME: Gracie Banuelos DATE OF SERVICE: August 10, 2024 TIME: 5:40 PM PATIENT IDENTITY VERIFICATION COMPLETED USING TWO (2) IDENTIFIERS: Name and Date of confirmedby patient verbally. FALL SCREENING: Has the patient had 2 falls in the last year or 1 fall with injury or currently using an Ambulatory Assistive Device (Walker, Cane, Wheelchair, Crutches, etc.)? No PATIENT GENDER DATA: Female. status: : No status: NO. PATIENT RELEVANT IMPLANT DATA REVIEWED: Yes PATIENT PRESENTS WITH AN IMPLANTABLE OR ATTACHED POLE MAKER: No RADIOLOGY DEPARTMENT: General X-ray: Exam(s) Completed: Chest X-Ray PERIPHERAL IV DATA: Not applicable SIGNED BY: ASTRID Muniz) August 10, 2024 5:40 PM documented in this encounterLake [facility]11-13-[facility]24 NoteHNO ID: [id number] Author: CONTRREAS MACK RT (R) Service: ? Author Type: Sales Appointment Coordinator Type: Progress Notes Filed: 08/10/2024 17:47 Note Text: Radiology Service Progress Note PATIENT NAME: Gracie Banuelos DATE OF SERVICE: August 10, 2024 TIME: 5:40 PM PATIENT IDENTITY VERIFICATION COMPLETED USING TWO (2) IDENTIFIERS: Name and Date of confirmed by patient verbally. FALL SCREENING: Has the patient had 2 falls in the last year or 1 fall with injury or currently using an Ambulatory Assistive Device (Walker, Cane, Wheelchair, Crutches, etc.)? No PATIENT GENDER DATA: Female. status: : No status: NO. PATIENT RELEVANT IMPLANT DATA REVIEWED: Yes PATIENT PRESENTS WITH AN IMPLANTABLE OR ATTACHED POLE MAKER: No RADIOLOGY DEPARTMENT: General X-ray: Exam(s) Completed: Chest X-Ray PERIPHERAL IV DATA: Not applicable SIGNED BY: ASTRID Muniz) August 10, 2024 5:40 [facility]11-13-2024 NoteHNO ID: [id number] Author: SOILA EASTON APRN.IGOR Service: ? Author Type: Nurse Practitioner Type: Progress Notes Filed: 08/10/2024 18:11 Note Text: CC: Patient presents with: Urge Urinary Incontinence: Urinary concerns HPI Gracie Banuelos is a 59 year old female who presents today for increased urinary incontinence. Had some stress incontinence chronically but over the last month has trouble with constant incontinence that she is not able to get to the restroom with increased frequency, and urgency. Lower abdominal cramping that can come and go and gets a a lot of pressure and pain with urination. Also with lower back pain for the past few week with no problem. Also with chronic intermittent abdominal tenderness for years without finding out why. Is having an episode at this time. Also with increase in shortness of breath, cough, wheezing. Has COPD and emphysema and is smoking on average 1 or less then 1ppd. Has to use albuterol with any exertion. Using albuterol inhaler only and not using her nebulizer. Also has home O2 she has not been using but admits to pulse ox dropping into the 80s with exertion and thinks she should start using this. Denies fever, chills, dark urine, malaise, blood in urine, vomiting, chest pain, edema, palpitations, or bowel changes. REVIEW OF SYSTEMS See HPI PAST MEDICAL HISTORY Diagnosis Date Acute exacerbation of chronic obstructive airways disease (HCC) Alcohol dependence in remission ([facility]) 07/10/2015 Alcohol use disorder 08/27/2017 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 pancreatitis Alcoholic hepatitis 05/18/2012 Alcoholic liver disease (HCC) 11/16/2013 Anemia Anxiety with depression Asthma Chronic hypoxemic respiratory failure (HCC) COPD (chronic obstructive pulmonary disease) (HCC) 05/25/2012 DDD (degenerative disc disease), cervical 09/03/2018 Diaphragmatic hernia without mention of obstruction or gangrene Diarrhea Diverticulosis GERD (gastroesophageal reflux disease) Hemorrhoids HLD (hyperlipidemia) HTN (hypertension) Human papillomavirus in conditions classified elsewhere and of unspecified site Irritable bowel syndrome with both constipation and diarrhea 08/27/2017 Lumbar disc disease with radiculopathy 06/18/2012 Other and unspecified alcohol dependence, unspecified drinking behavior Ovarian cyst, right 12/27/2012 Pancreatitis chronic 05/26/2011 Pneumonia of both lungs due to infectious organism 2017 Severe protein-calorie malnutrition (HCC) 01/07/2019 Stage 3 severe COPD by GOLD classification ([facility]) 2018 Tobacco use greater than 30 years Unspecified hemorrhoids without mention of complication Urine, incontinence, stress female 11/24/2014 PAST SURGICAL HISTORY Procedure Laterality Date APPENDECTOMY at age 14 COLONOSCOPY 04/15/[address], [address] Paul Perez. COLONOSCOPY 01/23/2015 2-Tubular adenomas. Dr. Víctor Lopez. COLONOSCOPY 07/29/2017 normal COLONOSCOPY - DIAGNOSTIC 01/10/2021 10 yr interval EGD 10/03/[address] Paul Perez. EGD 07/29/2017 mild gastritis, otherwise normal EGD 01/10/2021 EGD EUS 12/05/2019 mild gastritis, chronic pancreatitis with PD stone L'SCOPE CHOLECYSTECTOMY 06/14/2021 TUBAL LIGATION HX 1986 ALLERGIES Bactrim [Sulfamethoxazole-Trimethoprim], Hydrocodone, Penicillins, and Valium [Diazepam] MEDICATIONS ondansetron orally disintegrating (ZOFRAN ODT) 4 mg disintegrating tablet Take 1 tablet by mouth every 6 hours as needed for nausea/vomiting. ziprasidone (GEODON) 40 mg capsule Take 1 capsule by mouth at bedtime as needed. suvorexant 10 mg tab Take 1 tablet by mouth once daily for 90 days. amLODIPine (NORVASC) 5 mg tablet Take 1 tablet by mouth once daily. dsvvqm-xyuhnmzb-jnehdex (CREON 24) 24,000-76,000 -120,000 unit delayed release capsule Take 3 capsules by mouth once daily. metoprolol tartrate, short acting, (LOPRESSOR) 25 mg tablet Take 1 tablet by mouth two times a day. hydrOXYzine pamoate (VISTARIL) 25 mg capsule Take 1 capsule by mouth daily at bedtime. lisinopril (ZESTRIL) 10 mg tablet Take 1 tablet by mouth once daily. pantoprazole DR (PROTONIX) 40 mg tablet Take 1 tablet by mouth once daily. simvastatin (ZOCOR) 20 mg tablet Take 1 tablet by mouth daily at bedtime. Cholecalciferol, Vitamin D3, 50 mcg (2,000 unit) cap Take 1 capsule by mouth once daily. Benzonatate 200 mg capsule Take 200 mg by mouth three times a day as needed. (Patient not taking: Reported on 08/05/2024) MUCINEX D MAXIMUM STRENGTH 120-1,200 mg tab ER 12 hr as needed. Blood Pressure Monitor Home blood pressure monitor cyclobenzaprine (FLEXERIL) 10 mg tablet Take 1 tablet by mouth twice daily as needed for muscle spasm. albuterol HFA (VENTOLIN HFA) 90 mcg/actuation inhaler Inhale 2 Puffs as instructed four times daily as needed. ferrous sulfate (SLOW FE) 140 mg (45 mg iron) TbER Take 1 tablet by mouth twice daily with meals. luciano (more content not included)...[facility]11-13-2024 History of Present illness Narrative* Soila Easton APRN.DAYTIME CAREGIVER - 08/10/2024 5:05 PM EST CC: Patient presents with: Urge Urinary Incontinence: Urinary concerns HPI Gracie Banuelos is a 59 year old female who presents today for increased urinary incontinence. Had some stress incontinence chronically but over the last month has trouble with constant incontinence that she is not able to get to the restroom with increased frequency, and urgency. Lower abdominal cramping that can come and go and gets a a lot of pressure and pain with urination. Also with lower back pain for the past few week with no problem. Also with chronic intermittent abdominal tenderness for years without finding out why. Is having an episode at this time. Also with increase in shortness of breath, cough, wheezing. Has COPD and emphysema and is smoking on average 1 or less then 1ppd. Has to use albuterol with any exertion. Using albuterol inhaler only and not using her nebulizer. Also has home O2 she has not been using but admits to pulse ox droppinginto the 80s with exertion and thinks she should start using this. Denies fever, chills, dark urine, malaise, blood in urine, vomiting, chest pain, edema, palpitations, or bowel changes. REVIEW OF SYSTEMS See HPI PAST MEDICAL HISTORY Diagnosis Date Acute exacerbation of chronic obstructive airways disease (HCC) Alcohol dependence in remission (HCC) 07/10/2015 Alcohol use disorder 08/27/2017 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 pancreatitis Alcoholic hepatitis 05/18/2012 Alcoholic liver disease (HCC) 11/16/2013 Anemia Anxiety with depression Asthma Chronic hypoxemic respiratory failure (HCC) COPD (chronic obstructive pulmonary disease) (HCC) 05/25/2012 DDD (degenerative disc disease), cervical 09/03/2018 Diaphragmatic hernia without mention of obstruction or gangrene Diarrhea Diverticulosis GERD (gastroesophageal reflux disease) Hemorrhoids HLD (hyperlipidemia) HTN (hypertension) Human papillomavirus in conditions classified elsewhere and of unspecified site Irritable bowel syndrome with both constipation and diarrhea 08/27/2017 Lumbar disc disease with radiculopathy 06/18/2012 Other and unspecified alcohol dependence, unspecified drinking behavior Ovarian cyst, right 12/27/2012 Pancreatitis chronic 05/26/2011 Pneumonia of both lungs due to infectious organism 2017 Severe protein-calorie malnutrition (HCC) 01/07/2019 Stage 3 severe COPD by GOLD classification ([facility]) 2018 Tobacco use greater than 30 years Unspecified hemorrhoids without mention of complication Urine, incontinence, stress female 11/24/2014 PAST SURGICAL HISTORY Procedure Laterality Date APPENDECTOMY at age 14 COLONOSCOPY 04/15/2011 Hemorrhoids, Diverticulosis. Dr. Paul Perez. COLONOSCOPY 01/23/2015 2-Tubular adenomas. Dr. Víctor Lopez. COLONOSCOPY 07/29/2017 normal COLONOSCOPY - DIAGNOSTIC 01/10/2021 10 yr interval EGD 10/03/[address] Paul Perez. EGD 07/29/2017 mild gastritis, otherwise normal EGD 01/10/2021 EGD EUS 12/05/2019 mild gastritis, chronic pancreatitis with PD stone L'SCOPE CHOLECYSTECTOMY 06/14/2021 TUBAL LIGATION HX 1986 ALLERGIES Bactrim [Sulfamethoxazole-Trimethoprim], Hydrocodone, Penicillins, and Valium [Diazepam] MEDICATIONS ondansetron orally disintegrating (ZOFRAN ODT) 4 mg disintegrating tablet Take 1 tablet by mouth every 6 hours as needed for nausea/vomiting. ziprasidone (GEODON) 40 mg capsule Take 1 capsule by mouth at bedtime as needed. suvorexant 10 mg tab Take 1 tablet by mouth once daily for 90 days. amLODIPine (NORVASC) 5 mg tablet Take 1 tablet by mouth once daily. wzobbv-xdwgifxg-dbrrucs (CREON 24) 24,000-76,000 -120,000 unit delayed release capsule Take 3 capsules by mouth once daily. metoprolol tartrate, short acting, (LOPRESSOR) 25 mg tablet Take 1 tablet by mouth two times a day. hydrOXYzine pamoate (VISTARIL) 25 mg capsule Take 1 capsule by mouth daily at bedtime. lisinopril (ZESTRIL) 10 mg tablet Take 1 tablet by mouth once daily. pantoprazole DR (PROTONIX) 40 mg tablet Take 1 tablet by mouth once daily. simvastatin (ZOCOR) 20 mg tablet Take 1 tablet by mouth daily at bedtime. Cholecalciferol, Vitamin D3, 50 mcg (2,000 unit) cap Take 1 capsule by mouth once daily. Benzonatate 200 mg capsule Take 200 mg by mouth three times a day as needed. (Patient not taking: Reported on 08/05/2024) MUCINEX D MAXIMUM STRENGTH 120-1,200 mg tab ER 12 hr as needed. Blood Pressure Monitor Home blood pressure monitor cyclobenzaprine (FLEXERIL) 10 mg tablet Take 1 tablet by mouth twice daily as needed for muscle spasm. albuterol HFA (VENTOLIN HFA) 90 mcg/actuation inhaler Inhale 2 Puffs as instructed four times dailyas needed. ferrous sulfate (SLOW FE) 140 mg (45 mg iron) TbER Take 1 tablet by mouth twice daily with meals. mirtazapine (REMERON) [address] Talamantes. (Patient taking differently: Take 45mg by mouth daily at bedtime. Prescribed by Dr. Talamantes.) multivitamin tablet Take 1 tablet by mouth once daily. ARIPiprazole (ABILIFY) 5 mg tablet 5 mg once daily. albuterol (PROVENTIL) 2.5 mg /3 mL (0.083 %) nebulizer solution Use 3 mL via nebulizer one time only for 1 dose. Use over 5-15minutes. OXYGEN, HOME THERAPY, Inhale as instructed as directed. Patient is on 2-3 liters COMPOUNDED PRESCRIPTION Pulse Oximetry COMPOUNDED PRESCRIPTION nebulizer supplies (tubing) FAMILY HISTORY Problem Relation Age of Onset Diabetes Mother Hypertension Mother Rheumatologic disease Mother other (lung cancer) Mother Lung Cancer Mother Diabetes Sister Cervical Cancer Sister X 2 Hypertension Brother Lung Cancer Brother Social History Tobacco Use Smoking status: Former Current packs/day: 0.00 Average packs/day: 0.5 packs/day for 30.0 years (15.0 ttl pk-yrs) Types: Cigarettes Start date: 10/19/1992 Quit date: 10/19/2022 Years since quittin.8 Smokeless tobacco: Never Vaping Use Vaping status: Never Used Substance Use Topics Alcohol use: Not Currently Comment: Alcoholic - November 2020 - last drink Drug use: Not Currently Types: Marijuana Comment: rarely- last time used was Oct 2019 PHYSICAL EXAM BP 118/80 Pulse 96 Resp 16 Wt 64.4 kg (142 lb) LMP 05/29/2010 SpO2 92% BMI 25.15 kg/m General Appearance: ill appearing, no acute distress, alert. Walking pulse ox with O2 sat dropping to 87% with out much distance. Eyes: conjunctiva pink and moist, no icterus, sclera white, non-injected Neck: Thyroid normal size and symmetric without palpable nodules, Neck supple, No adenopathy Lymph nodes: No cervical lymphadenopathy and No supraclavicular lymphadenopathy Back: Full and painless ROM including flexion, extension, lateral side bending and rotation, Reflexes 2+ and symmetric Lungs: lung sounds tight with bilateral expiratory wheezes throughout Heart: RRR without murmur, gallop, or rubs. No ectopy Abdomen: Abdomen soft, Bowel sounds normal. No masses, organomegaly. Upper abdominal tenderness with grimacing. No guarding rigidity or rebound pain. Neurological: Gait normal. Reflexes normal and symmetric. Sensation intact., speech normal, mental status intact, muscle tone normal, muscle strength normal Health maintenance reviewed with patient: HIV Screening Never done Alpha-1 Antitrypsin Deficiency Screening Never done Shingrix Vaccine(1 of 2) Never done Cervical Cancer Screening due on 07/05/2020 Mammogram Screening due on 08/28/2021 RSV Vaccine(1 - Risk 60-74 years 1-dose series) Never done Colorectal Cancer Screening due on 01/11/2024 Covid-19 Vaccine( - 2023- season) due on 05/29/2024 Annual PCP Team Chronic Disease Visit due on 08/05/2025 BP Controlled (<130/80) due on 08/05/2025 Diabetes Screening due on 01/10/2027 Pneumococcal Vaccine(3 of 3 - PPSV23 or PCV20) due on 2028 Lipid Screening due on 01/10/2029 Spirometry Completed Influenza Vaccine Completed Hepatitis C Screening Completed DTaP,Tdap,Td Vaccine Discontinued DATA REVIEWED: Most recent labs ASSESSMENT/PLAN: 1. Shortness of breath - ICD9: 786.05, ICD10: R06.02 (primary diagnosis) - start wearing the oxygen you have at 2L and keep sats above 92% - doxycycline and prednisone as ordered - go to ER for any worsening or new symptoms Follow up in office on Thursday. - XR CHEST 2V FRONTAL/LAT 2. Chronic obstructive pulmonary disease with acute exacerbation (HCC) - ICD9: 491.21, ICD10: J44.1 As above Utilize your albuterol nebulizer treatments at home - XR CHEST 2V FRONTAL/LAT 3. Upper abdominal pain - ICD9: 789.09, ICD10: R10.10 - history of pancreatitis and alcoholic cirrhosis. - go to Er for any worsening or new symptoms - LIPASE - AMYLASE - COMPREHENSIVE METABOLIC PANEL - US ABD RIGHT UPPER QUADRANT 4. Nausea - ICD9: 787.02, ICD10: R11.0 As above - LIPASE - AMYLASE - COMPREHENSIVE METABOLIC PANEL - US ABD RIGHT UPPER QUADRANT 5. Urinary incontinence, unspecified type - ICD9: 788.30, ICD10: R32 Urine dip is normal and negative for any cva tenderness Will get breathing improved and revaluate - HEMOGLOBIN A1C 6. Urinary frequency - ICD9: 788.41, ICD10: R35.0 As above - HEMOGLOBIN A1C 7. Elevated glucose - ICD9: 790.29, ICD10: R73.09 With the increased urinary frequency this needs further evaluated. - HEMOGLOBIN A1C 8. Tobacco use disorder - ICD9: 305.1, ICD10: F17.200 - Cessation encouraged. - Physiologic and physical aspects of tobacco addiction as well as strategies for quitting were discussed. - Counseling was given focusing on the harmful effects of this addiction especially given the patient's medical condition(s) which will be worsened because of the chemicals in tobacco. - XR CHEST 2V FRONTAL/LAT 9. Pulmonary emphysema, unspecified emphysema type (HCC) - ICD9: 492.8, ICD10: J43.9 See #1 and #2 - XR CHEST 2V FRONTAL/LAT Prescription instructions reviewed with patient as applicable. Potential red flag symptoms discussed with the patient. Reviewed appropriate action plan to take if red flag symptoms occur. Patient agreeable to treatment plan. Soila Easton APRN.CNP documented [facility] Tele[facility] encounter Note * Telephone Encounter - Caroline Miller RN - 08/10/2024 1:24 PM EST Called and spoke with pt. Notified of Dr. Elkins's information and recommendation. Pt already has a 3 month f/u appt set up for 11/07/24. Added to appt note to discuss elev WBC. While speaking with pt, she c/o leaking urine. States it has been going on quite awhile probably since the last time she had pneumonia. But states the last few weeks it has been worse. She has no control and has difficulty making it to the bathroom. It is so bad, she has to wear Depends and sometimes will even leak through those and have to change her pants. Denies any burning or pain with urination. States does feel some pressure. Pt asking about seeing a kidney specialist. Pt booked for an appt with Soila Easton today at 5 pm. Explained that she will need to give a urine sample to test for a UTI. [facility]11-13-[facility]24 Miscellaneous Notes* Telephone Encounter - Caroline Miller RN - 08/10/2024 1:24 PM EST Called and spoke with pt. Notified of Dr. Elkins's information and recommendation. Pt already has a 3 month f/u appt set up for 11/07/24. Added to appt note to discuss elev WBC. While speaking with pt, she c/o leaking urine. States it has been going on quite awhile probably since the last time she had pneumonia. But states the last few weeks it has been worse. She has no control and has difficulty making it to the bathroom. It is so bad, she has to wear Depends and sometimes will even leak through those and have to change her pants. Denies any burning or pain with urination. States does feel some pressure. Pt asking about seeing a kidney specialist. Pt booked for an appt with Soila Easton today at 5 pm. Explained that she will need to give a urine sample to test for a UTI. * Telephone Encounter - Caroline Miller RN - 08/10/2024 1:14 PM EST ----- Message from Annmarie Elkins MD sent at 08/10/2024 12:44 PM EST ----- Gracie your while count always tends to be high, We will evaluate that in the next visit. Regards, Annmarie Elkins MD documented in [facility] encounterL[facility] Telephone encounter Note * Telephone Encounter - Caroline Miller RN - 08/10/2024 1:14 PM EST ----- Message from Annmarie Elkins MD sent at 08/10/2024 12:44 PM EST ----- Gracie your while count always tends to be high, We will evaluate that in the next visit. Regards, Annmarie Elkins MD [facility]11-08-2024 Instructions* Patient Instructions* Annmarie Elkins MD - 08/05/2024 4:09 PM EST Sleep Hygiene (Edu) You have been given information on Sleep Hygiene. Sleep hygiene is the practice of following good sleep habits in order to get a restful, effective night s sleep. Poor sleep hygiene can lead to long-term insomnia and sleep deprivation. When you do not get restful, effective sleep, it will interfere with work, driving, and normal day-to-day activities. It can also have bad effects on your physical and mental health. Fortunately, there are a few simple guidelines that can help you to improve your sleep. They include changes in your personal sleeping habits and your sleeping environment, along with the creation ofa routine for getting ready to go to bed. The following tips will help you with your sleep habits: Establish a constant bedtime and an awakening time. This is one of the most important habits in developing good sleep patterns. Try to go to bed at the same time every night, and awaken at the same time each morning. You should not nap more than 30 minutes. Avoid alcohol 4-6 hours before bedtime. Alcohol does have a sleep-inducing effect, however, as the alcohol levels in your blood start to decrease, many people experience a stimulant or wake-up effect. Avoid caffeine 4-6 hours before bedtime. This includes coffee, tea, soda, and chocolate. Avoid spicy foods and foods with a lot of sugar 4-6 hours before bedtime. These foods typically affect your ability to stay asleep. Try to eat a light snack with foods high in tryptophan just before bedtime. Milk, bananas, yogurt, and turkey are some examples. Tryptophan increases levels of certain chemicals (neurotransmitters) in your brain. Studies have shown that this has a calming and sleep-inducing effect. Get into the habit of establishing a pre-sleep ritual. Examples of some things that can help you get to sleep include taking a warm bath or reading just before going to bed. Improve your sleep environment. For example, block out any distracting noise, eliminate as much light as you can, adjust the room to a comfortable temperature, and be sure to have comfortable bedding. Make sure that your bed is only used for sleeping. In time, your mind will associate your bed with sleep. Exercise regularly, but not right before bed. Regular exercise can help deepen sleep. However, strenuous exercise too close to bedtime may be stimulating and lessen your ability to fall asleep. Stop smoking entirely. If you are not able to quit, do not smoke just before bedtime. Nicotine is astimulant. In addition, many physical health problems, such as some chronic illnesses, arthritis, acid reflux (heartburn), and undiagnosed sleep disorders, can interfere with sleep. Certain medications used to treat these medical problems may also have sleeplessness as a side-effect. Psychological or mental health problems, including depression and anxiety can cause difficulty sleeping. You should follow up with your doctor for these issues, so that together, you can develop a plan for treatment. There are also medications to help you with sleep problems; however, they are only a short-term solution and can have undesirable side-effects. Remember, the ochoa to the best overall improvement of sleep is to establish good sleep hygiene to help you fall asleep naturally. For more information, contact your doctor, or call or visit the National Sleep Foundation at www.sleepfoundation.org. documented in this encounterL[facility] History of Present illness Narrative* Annmarie Elkins MD - 08/05/2024 3:40 PM EST BESSIE Bowman is a 59-year-old woman with a past medical history of hypertension, hyperlipidemia, alcohol use disorder with moderate dependence currently only using alcohol twice a month, alcohol hepatitis and pancreatitis, tobacco abuse disorder, pulmonary emphysema, lumbar disc disease with radiculopathy, anxiety and depression. She was admitted to [facility] from 01/01 to 01/04 for pneumonia and COPD exacerbation. She was treated with Solumedrol and IV antibiotics (Rocephin and azithromycin). She was tachycardic and BP was elevated during admission. She was started on HCTZ 12.5 mg daily and Metoprolol 25 mg BID, Norvasc increased to5 mg daily. Discharged home on prednisone burst with taper, Levaquin, Duoneb, Tessalon Perles and BP medications. Patient reports SOB and cough are much better, at baseline now. Wearing oxygen at home prior to admission, uses as needed. She is still feeling exhausted and gets lightheaded with position changes. BP is low today, she is unable to check at home. Taking all medications as prescribed except she is confused about a couple of the BP meds. Levaquin was completed and has a couple more days left of theprednisone. 05/21: She is here for a follow-up her bp is much well controlled today, she is cutting down her smoking, Is down to a half pack. Has cut down her drinking and is drinking 2 times a month. Advised notto drink at all as she has pancreatitis. Asked her to continue using the Creon. She has been using the Ativan every day 2 times and is only getting Remeron from counseling center. She says she has rocha ic and the Ativan helps but she is not on an SSRI. She is on hydroxyzine. 08/05/24: The patient was started on lexapro in the last visit for anxiety. It made her have nausea, gave her dry heaves and diarrhea for 2 weeks, and it just did not get better. She is on ativan, but we discussed the side effects of it and the link with dementia and that we should try to cut down the medication She is on geodon in the morning and abilify at night. Her main concern is the anxiety and insomnia. Insomnia: she has been having insomnia for the past many years. She goes to bed and wakes up at thesame time 10 pm and 4 am . She watches tv just before going to bed. She smokes around 11 pm. She drinks 3 cups of coffee to feel awake. Does a little exercise. She uses oxygen at night time as needed. Review of Systems Constitutional: Positive for fatigue. Negative for chills, diaphoresis, fever and unexpected weightchange. HENT: Negative for congestion, postnasal drip, rhinorrhea, sinus pressure, sinus pain and sore throat. Respiratory: Shortness of breath: baseline. Cardiovascular: Negative for chest pain, palpitations and leg swelling. Gastrointestinal: Negative for abdominal pain, diarrhea, nausea and vomiting. Neurological: Positive for light-headedness (positional). Negative for dizziness, syncope, weakness, numbness and headaches. Psychiatric/Behavioral: Negative for confusion. PAST MEDICAL HISTORY Diagnosis Date Acute exacerbation of chronic obstructive airways disease (HCC) Alcohol dependence in remission ([facility]) 07/10/2015 Alcohol use disorder 08/27/2017 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 pancreatitis Alcoholic hepatitis 05/18/2012 Alcoholic liver disease (HCC) 11/16/2013 Anemia Anxiety with depression Asthma Chronic hypoxemic respiratory failure (HCC) COPD (chronic obstructive pulmonary disease) ([facility]) 05/25/2012 DDD (degenerative disc disease), cervical 09/03/2018 Diaphragmatic hernia without mention of obstruction or gangrene Diarrhea Diverticulosis GERD (gastroesophageal reflux disease) Hemorrhoids HLD (hyperlipidemia) HTN (hypertension) Human papillomavirus in conditions classified elsewhere and of unspecified site Irritable bowel syndrome with both constipation and diarrhea 08/27/2017 Lumbar disc disease with radiculopathy 06/18/2012 Other and unspecified alcohol dependence, unspecified drinking behavior Ovarian cyst, right 12/27/2012 Pancreatitis chronic 05/26/2011 Pneumonia of both lungs due to infectious organism 2017 Severe protein-calorie malnutrition (HCC) 01/07/2019 Stage 3 severe COPD by GOLD classification ([facility]) 2018 Tobacco use greater than 30 years Unspecified hemorrhoids without mention of complication Urine, incontinence, stress female 11/24/2014 PAST SURGICAL HISTORY Procedure Laterality Date APPENDECTOMY at age 14 COLONOSCOPY 04/15/[address], [address] Paul Perez. COLONOSCOPY 01/23/2015 2-Tubular adenomas. Dr. Víctor Lopez. COLONOSCOPY 07/29/2017 normal COLONOSCOPY - DIAGNOSTIC 01/10/2021 10 yr interval EGD 10/03/[address] Paul Perez. EGD 07/29/2017 mild gastritis, otherwise normal EGD 01/10/2021 EGD EUS 12/05/2019 mild gastritis, chronic pancreatitis with PD stone L'SCOPE CHOLECYSTECTOMY 06/14/2021 TUBAL LIGATION HX 1986 ALLERGIES Bactrim [Sulfamethoxazole-Trimethoprim], Hydrocodone, Penicillins, and Valium [Diazepam] MEDICATIONS LORazepam (ATIVAN) 0.5 mg Take 1 tablet by mouth two times a day for 30 days. amLODIPine (NORVASC) 5 mg tablet Take 1 tablet by mouth once daily. obqihd-lsrezbna-hvyhzct (CREON 24) 24,000-76,000 -120,000 unit delayed release capsule Take 3 capsules by mouth once daily. metoprolol tartrate, short acting, (LOPRESSOR) 25 mg tablet Take 1 tablet by mouth two times a day. escitalopram oxalate (LEXAPRO) 10 mg tablet Take 1 tablet by mouth once daily. Please take half a pill a day for 7days and then go on to a full pill a day hydrOXYzine pamoate (VISTARIL) 25 mg capsule Take 1 capsule by mouth daily at bedtime. lisinopril (ZESTRIL) 10 mg tablet Take 1 tablet by mouth once daily. pantoprazole DR (PROTONIX) 40 mg tablet Take 1 tablet by mouth once daily. simvastatin (ZOCOR) 20 mg tablet Take 1 tablet by mouth daily at bedtime. Cholecalciferol, Vitamin D3, 50 mcg (2,000 unit) cap Take 1 capsule by mouth once daily. ondansetron orally disintegrating (ZOFRAN ODT) 4 mg disintegrating tablet Take 1 tablet by mouth every 6 hours as needed for nausea/vomiting. Benzonatate 200 mg capsule Take 200 mg by mouth three times a day as needed. MUCINEX D MAXIMUM STRENGTH 120-1,200 mg tab ER 12 hr TAKE 1 TABLET BY MOUTH EVERY 12 HOURS for coldSYMPTOMS Blood Pressure Monitor Home blood pressure monitor cyclobenzaprine (FLEXERIL) 10 mg tablet Take 1 tablet by mouth twice daily as needed for muscle spasm. albuterol HFA (VENTOLIN HFA) 90 mcg/actuation inhaler Inhale 2 Puffs as instructed four times dailyas needed. ferrous sulfate (SLOW FE) 140 mg (45 mg iron) TbER Take 1 tablet by mouth twice daily with meals. mirtazapine (REMERON) [address] tablet [address]. Taalmantes. multivitamin tablet Take 1 tablet by mouth once daily. ARIPiprazole (ABILIFY) 5 mg tablet Take by mouth. albuterol (PROVENTIL) 2.5 mg /3 mL (0.083 %) nebulizer solution Use 3 mL via nebulizer one time only for 1 dose. Use over 5-15minutes. OXYGEN, HOME THERAPY, Inhale as instructed as directed. Patient is on 2-3 liters COMPOUNDED PRESCRIPTION Pulse Oximetry COMPOUNDED PRESCRIPTION nebulizer supplies (tubing) FAMILY HISTORY Problem Relation Age of Onset Diabetes Mother Hypertension Mother Rheumatologic disease Mother other (lung cancer) Mother Lung Cancer Mother Diabetes Sister Cervical Cancer Sister X 2 Hypertension Brother Lung Cancer Brother Social History Tobacco Use Smoking status: Former Current packs/day: 0.00 Average packs/day: 0.5 packs/day for 30.0 years (15.0 ttl pk-yrs) Types: Cigarettes Start date: 10/19/1992 Quit date: 10/19/2022 Years since quittin.7 Smokeless tobacco: Never Vaping Use Vaping status: Never Used Substance Use Topics Alcohol use: Not Currently Comment: Alcoholic - November 2020 - last drink Drug use: Not Currently Types: Marijuana Comment: rarely- last time used was Oct 2019 LMP 05/29/2010 Physical Exam Vitals reviewed. Constitutional: General: She is not in acute distress. Appearance: She is not ill-appearing or toxic-appearing. HENT: Mouth/Throat: Mouth: Mucous membranes are moist. Eyes: Conjunctiva/sclera: Conjunctivae normal. Cardiovascular: Rate and Rhythm: Normal rate and regular rhythm. Heart sounds: Normal heart sounds. Pulmonary: Effort: Pulmonary effort is normal. Breath sounds: Decreased breath sounds (all sherman) present. No wheezing, rhonchi or rales. Skin: General: Skin is warm and dry. Neurological: Mental Status: She is alert. Psychiatric: Mood and Affect: Mood and affect normal. Cognition and Memory: Cognition normal. ASSESSMENT/PLAN: 1. Anxiety - ICD9: 300.00, ICD10: F41.9 (primary diagnosis) Not well controlled, She she did not take the Lexapro but discontinued with the Abilify and the Geodon. Her psychiatrist is Dr. Stevens who is giving her her psychiatric medications. We discussed with her the Ativan and the reasons why it is not the best medication for her especially with the link with dementia, confusion, falls. We discussed very slow taper. Discussed that we would cut down the Ativan to 1 tablet a day for the next couple months and then 1 tablet every other day. The other concern I have is that she is getting all her psychiatric treatment from psychiatrist except for insomnia and the Ativan which I discussed with her just does not professionally appropriate. We will try her on Belsomra for insomnia. 2. 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 chronic pancreatitis (HCC) - ICD9: 577.1, ICD10: K86.0 He is having no issues with digestion right now 3. Nausea - ICD9: 787.02, ICD10: R11.0 - ONDANSETRON 4 MG DISINTEGRATING TABLET 4. Encounter for immunization - ICD9: V03.89, ICD10: Z23 - INFLUENZA VACCINE, AGE 6MO-64YR, TRIVALENT (AFLURIA, FLULAVAL, FLUVIRIN, FLUZONE) 5. Insomnia, unspecified type - ICD9: 780.52, ICD10: G47.00 - SUVOREXANT 10 MG TABLET 6. Leukocytosis, unspecified type - ICD9: 288.60, ICD10: D72.829 - COMPLETE BLOOD COUNT AND DIFFERENTIAL Annmarie Elkins MD [facility] NoteHNO ID: [id number] Author: ANNMARIE ELKINS MD Service: ? Author Type: Physician Type: Progress Notes Filed: 08/05/2024 17:23 Note Text: BESSIE Bowman is a 59-year-old woman with a past medical history of hypertension, hyperlipidemia, alcohol use disorder with moderate dependence currently only using alcohol twice a month, alcohol hepatitis and pancreatitis, tobacco abuse disorder, pulmonary emphysema, lumbar disc disease with radiculopathy, anxiety and depression. She was admitted to [facility] from 01/01 to 01/04 for pneumonia and COPD exacerbation. She was treated with Solumedrol and IV antibiotics (Rocephin and azithromycin). She was tachycardic and BP was elevated during admission. She was started on HCTZ 12.5 mg daily and Metoprolol 25 mg BID, Norvasc increased to 5 mg daily. Discharged home on prednisone burst with taper, Levaquin, Duoneb, Tessalon Perles and BP medications. Patient reports SOB and cough are much better, at baseline now. Wearing oxygen at home prior to admission, uses as needed. She is still feeling exhausted and gets lightheaded with position changes. BP is low today, she is unable to check at home. Taking all medications as prescribed except she is confused about a couple of the BP meds. Levaquin was completed and has a couple more days left of the prednisone. 05/21: She is here for a follow-up her bp is much well controlled today, she is cutting down her smoking, Is down to a half pack. Has cut down her drinking and is drinking 2 times a month. Advised not to drink at all as she has pancreatitis. Asked her to continue using the Creon. She has been using the Ativan every day 2 times and is only getting Remeron from [facility]. She says she has panic and the Ativan helps but she is not on an SSRI. She is on hydroxyzine. 08/05/24: The patient was started on lexapro in the last visit for anxiety. It made her have nausea, gave her dry heaves and diarrhea for 2 weeks, and it just did not get better. She is on ativan, but we discussed the side effects of it and the link with dementia and that we should try to cut down the medication She is on geodon in the morning and abilify at night. Her main concern is the anxiety and insomnia. Insomnia: she has been having insomnia for the past many years. She goes to bed and wakes up at the same time 10 pm and 4 am . She watches tv just before going to bed. She smokes around 11 pm. She drinks 3 cups of coffee to feel awake. Does a little exercise. She uses oxygen at night time as needed. Review of Systems Constitutional: Positive for fatigue. Negative for chills, diaphoresis, fever and unexpected weight change. HENT: Negative for congestion, postnasal drip, rhinorrhea, sinus pressure, sinus pain and sore throat. Respiratory: Shortness of breath: baseline. Cardiovascular: Negative for chest pain, palpitations and leg swelling. Gastrointestinal: Negative for abdominal pain, diarrhea, nausea and vomiting. Neurological: Positive for light-headedness (positional). Negative for dizziness, syncope, weakness, numbness and headaches. Psychiatric/Behavioral: Negative for confusion. PAST MEDICAL HISTORY Diagnosis Date Acute exacerbation of chronic obstructive airways disease (HCC) Alcohol dependence in remission (HCC) 07/10/2015 Alcohol use disorder 08/27/2017 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 pancreatitis Alcoholic hepatitis 05/18/2012 Alcoholic liver disease (HCC) 11/16/2013 Anemia Anxiety with depression Asthma Chronic hypoxemic respiratory failure (HCC) COPD (chronic obstructive pulmonary disease) (HCC) 05/25/2012 DDD (degenerative disc disease), cervical 09/03/2018 Diaphragmatic hernia without mention of obstruction or gangrene Diarrhea Diverticulosis GERD (gastroesophageal reflux disease) Hemorrhoids HLD (hyperlipidemia) HTN (hypertension) Human papillomavirus in conditions classified elsewhere and of unspecified site Irritable bowel syndrome with both constipation and diarrhea 08/27/2017 Lumbar disc disease with radiculopathy 06/18/2012 Other and unspecified alcohol dependence, unspecified drinking behavior Ovarian cyst, right 12/27/2012 Pancreatitis chronic 05/26/2011 Pneumonia of both lungs due to infectious organism 2017 Severe protein-calorie malnutrition (HCC) 01/07/2019 Stage 3 severe COPD by GOLD classification ([facility]) 2018 Tobacco use greater than 30 years Unspecified hemorrhoids without mention of complication Urine, incontinence, stress female 11/24/2014 PAST SURGICAL HISTORY Procedure Laterality Date APPENDECTOMY at age 14 COLONOSCOPY 04/15/[address], [address] Paul Perez. COLONOSCOPY 01/23/2015 2-Tubular adenomas. Dr. Víctor Lopez. COLONOSCOPY 07/29/2017 normal COLONOSCOPY - DIAGNOSTIC 01/10/2021 10 yr interval EGD 10/03/[address] Paul Perez. EGD 07/29/2017 mild gastritis, otherwise normal EGD 01/10/2021 EGD EUS 12/05/2019 mil (more content not included)...[facility]10-11-2024 Telephone encounter Note* Telephone Encounter - Soila Easton APRN.CNP - 07/08/2024 2:43 PM EDT PDMP website checked and validated. All prescriptions have been APPROPRIATELY filled. No suspiciousactivity was identified. 07/08/2024 by Soila Easton APRN.CNP [facility]10-11-2024 Miscellaneous Notes* Telephone Encounter - Soila Easton APRN.CNP - 07/08/2024 2:43 PM EDT PDMP website checked and validated. All prescriptions have been APPROPRIATELY filled. No suspiciousactivity was identified. 07/08/2024 by Soila Easton APRN.DAYTIME CAREGIVER * Telephone Encounter - Mike Phan RN - 07/08/2024 1:51 PM EDT The patient has been identified by name and date of : Yes Caregiver verified no other encounters exist for this prescription request: Yes Caregiver confirmed with patient/requestor that no other refills are due, in the near future, with this provider at this time: Yes The last office visit in the department: 05/18/2024 Does the patient have a future office visit with this provider/department: Yes 07/13/2024 Requested Prescriptions Pending Prescriptions Disp Refills LORazepam (ATIVAN) 0.5 mg 30 tablet 0 Sig: Take 1 tablet by mouth two times a day for 30 days. Mike Phan RN July 08, 2024 1:52 PM documented in [facility] Telephone encounter Note * Telephone Encounter - Mike Phan RN - 07/08/2024 1:51 PM EDT The patient has been identified by name and date of : Yes Caregiver verified no other encounters exist for this prescription request: Yes Caregiver confirmed with patient/requestor that no other refills are due, in the near future, with this provider at this time: Yes The last office visit in the department: 05/18/2024 Does the patient have a future office visit with this provider/department: Yes 07/13/2024 Requested Prescriptions Pending Prescriptions Disp Refills LORazepam (ATIVAN) 0.5 mg 30 tablet 0 Sig: Take 1 tablet by mouth two times a day for 30 days. Mike Phan RN July 08, 2024 1:52 PM [facility]09-24-2024 Telephone encounter Note* Telephone Encounter - Larry Hastings MA - 06/21/2024 2:32 PM EDT Patient no showed to today's appt. Letter sent. Larry Hastings MA [facility]09-24-2024 Miscellaneous Notes* Telephone Encounter - Larry Hastings MA - 06/21/2024 2:32 PM EDT Patient no showed to today's appt. Letter sent. Larry Hastings MA documented in this encounterL[facility] Telephone encounter Note * Telephone Encounter - Soila Easton APRN.CNP - 06/16/2024 12:39 PM EDT PDMP website checked and validated. All prescriptions have been APPROPRIATELY filled. No suspiciousactivity was identified. 06/16/2024 by Soila Easton APRN.CNP [facility]-19-2024 Miscellaneous Notes* Telephone Encounter - Soila Easton APRN.CNP - 06/16/2024 12:39 PM EDT PDMP website checked and validated. All prescriptions have been APPROPRIATELY filled. No suspiciousactivity was identified. 06/16/2024 by Soila Easton APRN.CNP * Telephone Encounter - Eda Velazquez LPN - 06/15/2024 5:21 PM EDT Prescription Refill Information The patient has been identified by name and date of : Yes Caregiver verified no other encounters exist for this prescription request: Yes Caregiver confirmed with patient/requestor that no other refills are due, in the near future, with this provider at this time: Yes The last office visit in the department: 05/18/24 Does the patient have a future office visit with this provider/department: Yes Requested Prescriptions Pending Prescriptions Disp Refills LORazepam (ATIVAN) 0.5 mg 30 tablet 0 Sig: Take 1 tablet by mouth two times a day for 30 days. Eda Velazquez LPN June 15, 2024 5:21 PM * Telephone Encounter - Holly Herrera - 06/15/2024 2:32 PM EDT Prescription Refill Information The patient has been identified by name and date of : Yes Caregiver verified no other encounters exist for this prescription request: Yes Caregiver confirmed with patient/requestor that no other refills are due, in the near future, with this provider at this time: Yes The last office visit in the department: 05-18-24 Does the patient have a future office visit with this provider/department: Yes Requested Prescriptions Pending Prescriptions Disp Refills LORazepam (ATIVAN) 0.5 mg 30 tablet 0 Sig: Take 1 tablet by mouth two times a day for 30 days. Holly Owen [facility] June 15, 2024 2:33 PM documented in this encounterL[facility] Telephone encounter Note * Telephone Encounter - Eda Velazquez LPN - 06/15/2024 5:21 PM EDT Prescription Refill Information The patient has been identified by name and date of : Yes Caregiver verified no other encounters exist for this prescription request: Yes Caregiver confirmed with patient/requestor that no other refills are due, in the near future, with this provider at this time: Yes The last office visit in the department: 05/18/24 Does the patient have a future office visit with this provider/department: Yes Requested Prescriptions Pending Prescriptions Disp Refills LORazepam (ATIVAN) 0.5 mg 30 tablet 0 Sig: Take 1 tablet by mouth two times a day for 30 days. Eda Velazquez LPN June 15, 2024 5:21 PM [facility]09-18-2024 Telephone encounter Note* Telephone Encounter - Aysha JensenHolly - 06/15/2024 2:32 PM EDT Prescription Refill Information The patient has been identified by name and date of : Yes Caregiver verified no other encounters exist for this prescription request: Yes Caregiver confirmed with patient/requestor that no other refills are due, in the near future, with this provider at this time: Yes The last office visit in the department: 05-18-24 Does the patient have a future office visit with this provider/department: Yes Requested Prescriptions Pending Prescriptions Disp Refills LORazepam (ATIVAN) 0.5 mg 30 tablet 0 Sig: Take 1 tablet by mouth two times a day for 30 days. Holly Jensen June 15, 2024 2:33 PM [facility]08-21-2024 NoteHNO ID: [id number] Author: ANNMARIE ELKINS MD Service: ? Author Type: Physician Type: Progress Notes Filed: 05/18/2024 17:57 Note Text: BESSIE Bowman is a 59-year-old woman with a past medical history of hypertension, hyperlipidemia, alcohol use disorder with moderate dependence currently only using alcohol twice a month, alcohol hepatitis and pancreatitis, tobacco abuse disorder, pulmonary emphysema, lumbar disc disease with radiculopathy, anxiety and depression. She was admitted to [facility] from 01/01 to 01/04 for pneumonia and COPD exacerbation. She was treated with Solumedrol and IV antibiotics (Rocephin and azithromycin). She was tachycardic and BP was elevated during admission. She was started on HCTZ 12.5 mg daily and Metoprolol 25 mg BID, Norvasc increased to 5 mg daily. Discharged home on prednisone burst with taper, Levaquin, Duoneb, Tessalon Perles and BP medications. Patient reports SOB and cough are much better, at baseline now. Wearing oxygen at home prior to admission, uses as needed. She is still feeling exhausted and gets lightheaded with position changes. BP is low today, she is unable to check at home. Taking all medications as prescribed except she is confused about a couple of the BP meds. Levaquin was completed and has a couple more days left of the prednisone. 05/21: She is here for a follow-up her bp is much well controlled today, she is cutting down her smoking, Is down to a half pack. Has cut down her drinking and is drinking 2 times a month. Advised not to drink at all as she has pancreatitis. Asked her to continue using the Creon. She has been using the Ativan every day 2 times and is only getting Remeron from counseling center. She says she has panic and the Ativan helps but she is not on an SSRI. She is on hydroxyzine. Review of Systems Constitutional: Positive for fatigue. Negative for chills, diaphoresis, fever and unexpected weight change. HENT: Negative for congestion, postnasal drip, rhinorrhea, sinus pressure, sinus pain and sore throat. Respiratory: Shortness of breath: baseline. Cardiovascular: Negative for chest pain, palpitations and leg swelling. Gastrointestinal: Negative for abdominal pain, diarrhea, nausea and vomiting. Neurological: Positive for light-headedness (positional). Negative for dizziness, syncope, weakness, numbness and headaches. Psychiatric/Behavioral: Negative for confusion. PAST MEDICAL HISTORY No date: Acute exacerbation of chronic obstructive airways disease ([facility]) 07/10/2015: Alcohol dependence in remission ([facility]) 08/27/2017: Alcohol use disorder No date: 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 pancreatitis 05/18/2012: Alcoholic hepatitis 11/16/2013: Alcoholic liver disease ([facility]) No date: Anemia No date: Anxiety with depression No date: Asthma No date: Chronic hypoxemic respiratory failure ([facility]) 05/25/2012: COPD (chronic obstructive pulmonary disease) ([facility]) 09/03/2018: DDD (degenerative disc disease), cervical No date: Diaphragmatic hernia without mention of obstruction or gangrene No date: Diarrhea No date: Diverticulosis No date: GERD (gastroesophageal reflux disease) No date: Hemorrhoids No date: HLD (hyperlipidemia) No date: HTN (hypertension) No date: Human papillomavirus in conditions classified elsewhere and of unspecified site 08/27/2017: Irritable bowel syndrome with both constipation and diarrhea 06/18/2012: Lumbar disc disease with radiculopathy No date: Other and unspecified alcohol dependence, unspecified drinking behavior 12/27/2012: Ovarian cyst, right 05/26/2011: Pancreatitis chronic 2018: Pneumonia of both lungs due to infectious organism 01/07/2019: Severe protein-calorie malnutrition (HCC) 2018: Stage 3 severe COPD by GOLD classification (HCC) No date: Tobacco use Comment: greater than 30 years No date: Unspecified hemorrhoids without mention of complication 11/24/2014: Urine, incontinence, stress female PAST SURGICAL HISTORY No date: APPENDECTOMY Comment: at age 14 04/15/2011: COLONOSCOPY Comment: Hemorrhoids, Diverticulosis. Dr. Paul Perez. 01/23/2015: COLONOSCOPY Comment: 2-Tubular adenomas. Dr. Víctor Lopez. 07/29/2017: COLONOSCOPY Comment: normal 01/10/2021: COLONOSCOPY - DIAGNOSTIC Comment: 10 yr interval 10/03/2010: EGD Comment: Duodenal mucosa. Dr. Paul Perez. 07/29/2017: EGD Comment: mild gastritis, otherwise normal 01/10/2021: EGD 12/05/2019: EGD EUS Comment: mild gastritis, chronic pancreatitis with PD stone 06/14/2021: L'SCOPE CHOLECYSTECTOMY Comment: 1986: TUBAL LIGATION HX ALLERGIES Bactrim [Sulfamethoxazole-Trimethoprim], Hydrocodone, Penicillins, and Valium [Diazepam] MEDICATIONS hydrOXYzine pamoate (VISTARIL) 25 mg capsule Take 1 capsule by mouth daily at bedtime. lisinopril (ZESTRIL) 10 mg tablet Take 1 tablet by mouth once daily. pantoprazole DR (PROTONIX) 40 mg tablet Take 1 tablet by mouth once daily. simvastatin (ZOC (more content not included)...[facility] 05-18-2024 History of Present illness Narrative* Annmarie Elkins MD - 05/18/2024 4:37 PM EDT BESSIE Bowman is a 59-year-old woman with a past medical history of hypertension, hyperlipidemia, alcohol use disorder with moderate dependence currently only using alcohol twice a month, alcohol hepatitis and pancreatitis, tobacco abuse disorder, pulmonary emphysema, lumbar disc disease with radiculopathy, anxiety and depression. She was admitted to [facility] from 01/01 to 01/04 for pneumonia and COPD exacerbation. She was treated with Solumedrol and IV antibiotics (Rocephin and azithromycin). She was tachycardic and BP was elevated during admission. She was started on HCTZ 12.5 mg daily and Metoprolol 25 mg BID, Norvasc increased to5 mg daily. Discharged home on prednisone burst with taper, Levaquin, Duoneb, Tessalon Perles and BP medications. Patient reports SOB and cough are much better, at baseline now. Wearing oxygen at home prior to admission, uses as needed. She is still feeling exhausted and gets lightheaded with position changes. BP is low today, she is unable to check at home. Taking all medications as prescribed except she is confused about a couple of the BP meds. Levaquin was completed and has a couple more days left of theprednisone. 05/21: She is here for a follow-up her bp is much well controlled today, she is cutting down her smoking, Is down to a half pack. Has cut down her drinking and is drinking 2 times a month. Advised notto drink at all as she has pancreatitis. Asked her to continue using the Creon. She has been using the Ativan every day 2 times and is only getting Remeron from counseling center. She says she has rocha ic and the Ativan helps but she is not on an SSRI. She is on hydroxyzine. Review of Systems Constitutional: Positive for fatigue. Negative for chills, diaphoresis, fever and unexpected weightchange. HENT: Negative for congestion, postnasal drip, rhinorrhea, sinus pressure, sinus pain and sore throat. Respiratory: Shortness of breath: baseline. Cardiovascular: Negative for chest pain, palpitations and leg swelling. Gastrointestinal: Negative for abdominal pain, diarrhea, nausea and vomiting. Neurological: Positive for light-headedness (positional). Negative for dizziness, syncope, weakness, numbness and headaches. Psychiatric/Behavioral: Negative for confusion. PAST MEDICAL HISTORY No date: Acute exacerbation of chronic obstructive airways disease (HCC) 07/10/2015: Alcohol dependence in remission (HCC) 08/27/2017: Alcohol use disorder No date: 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 pancreatitis 05/18/2012: Alcoholic hepatitis 11/16/2013: Alcoholic liver disease (HCC) No date: Anemia No date: Anxiety with depression No date: Asthma No date: Chronic hypoxemic respiratory failure (HCC) 05/25/2012: COPD (chronic obstructive pulmonary disease) ([facility]) 09/03/2018: DDD (degenerative disc disease), cervical No date: Diaphragmatic hernia without mention of obstruction or gangrene No date: Diarrhea No date: Diverticulosis No date: GERD (gastroesophageal reflux disease) No date: Hemorrhoids No date: HLD (hyperlipidemia) No date: HTN (hypertension) No date: Human papillomavirus in conditions classified elsewhere and of unspecified site 08/27/2017: Irritable bowel syndrome with both constipation and diarrhea 06/18/2012: Lumbar disc disease with radiculopathy No date: Other and unspecified alcohol dependence, unspecified drinking behavior 12/27/2012: Ovarian cyst, right 05/26/2011: Pancreatitis chronic 2018: Pneumonia of both lungs due to infectious organism 01/07/2019: Severe protein-calorie malnutrition (HCC) 2018: Stage 3 severe COPD by GOLD classification ([facility]) No date: Tobacco use Comment: greater than 30 years No date: Unspecified hemorrhoids without mention of complication 11/24/2014: Urine, incontinence, stress female PAST SURGICAL HISTORY No date: APPENDECTOMY Comment: at age 14 04/15/2011: COLONOSCOPY Comment: Hemorrhoids, Diverticulosis. Dr. Paul Perez. 01/23/2015: COLONOSCOPY Comment: 2-Tubular adenomas. Dr. Víctor Lopez. 07/29/2017: COLONOSCOPY Comment: normal 01/10/2021: COLONOSCOPY - DIAGNOSTIC Comment: 10 yr interval 10/03/2010: EGD Comment: Duodenal mucosa. Dr. Paul Perez. 07/29/2017: EGD Comment: mild gastritis, otherwise normal 01/10/2021: EGD 12/05/2019: EGD EUS Comment: mild gastritis, chronic pancreatitis with PD stone 06/14/2021: L'SCOPE CHOLECYSTECTOMY Comment: 1986: TUBAL LIGATION HX ALLERGIES Bactrim [Sulfamethoxazole-Trimethoprim], Hydrocodone, Penicillins, and Valium [Diazepam] MEDICATIONS hydrOXYzine pamoate (VISTARIL) 25 mg capsule Take 1 capsule by mouth daily at bedtime. lisinopril (ZESTRIL) 10 mg tablet Take 1 tablet by mouth once daily. pantoprazole DR (PROTONIX) 40 mg tablet Take 1 tablet by mouth once daily. simvastatin (ZOCOR) 20 mg tablet Take 1 tablet by mouth daily at bedtime. Cholecalciferol, Vitamin D3, 50 mcg (2,000 unit) cap Take 1 capsule by mouth once daily. amLODIPine (NORVASC) 5 mg tablet Take 1 tablet by mouth once daily. metoprolol tartrate, short acting, (LOPRESSOR) 25 mg tablet Take 1 tablet by mouth two times a day. wcygtq-wycrpoxt-qnjxbba (CREON 24) 24,000-76,000 -120,000 unit delayed release capsule Take 3 capsules by mouth once daily. ziprasidone (GEODON) 20 mg capsule Patient unsure on dosage - prescribed by Dr. Talamantes. mirtazapine (REMERON) [address] mg tablet Prescribed by Dr. Talamantes. ARIPiprazole (ABILIFY) 5 mg tablet Take by mouth. LORazepam (ATIVAN) 0.5 mg Take 1 tablet by mouth two times a day for 30 days. Do not start before April 23, 2024. ondansetron orally disintegrating (ZOFRAN ODT) 4 mg disintegrating tablet Take 1 tablet by mouth every 6 hours as needed for nausea/vomiting. Benzonatate 200 mg capsule Take 200 mg by mouth three times a day as needed. MUCINEX D MAXIMUM STRENGTH 120-1,200 mg tab ER 12 hr TAKE 1 TABLET BY MOUTH EVERY 12 HOURS for coldSYMPTOMS Blood Pressure Monitor Home blood pressure monitor cyclobenzaprine (FLEXERIL) 10 mg tablet Take 1 tablet by mouth twice daily as needed for muscle spasm. albuterol HFA (VENTOLIN HFA) 90 mcg/actuation inhaler Inhale 2 Puffs as instructed four times dailyas needed. ferrous sulfate (SLOW FE) 140 mg (45 mg iron) TbER Take 1 tablet by mouth twice daily with meals. multivitamin tablet Take 1 tablet by mouth once daily. albuterol (PROVENTIL) 2.5 mg /3 mL (0.083 %) nebulizer solution Use 3 mL via nebulizer one time only for 1 dose. Use over 5-15minutes. OXYGEN, HOME THERAPY, Inhale as instructed as directed. Patient is on 2-3 liters COMPOUNDED PRESCRIPTION Pulse Oximetry COMPOUNDED PRESCRIPTION nebulizer supplies (tubing) FAMILY HISTORY Problem Relation Age of Onset Diabetes Mother Hypertension Mother Rheumatologic disease Mother other (lung cancer) Mother Lung Cancer Mother Diabetes Sister Cervical Cancer Sister X 2 Hypertension Brother Lung Cancer Brother Social History Tobacco Use Smoking status: Former Current packs/day: 0.00 Average packs/day: 0.5 packs/day for 30.0 years (15.0 ttl pk-yrs) Types: Cigarettes Start date: 10/19/1992 Quit date: 10/19/2022 Years since quittin.5 Smokeless tobacco: Never Vaping Use Vaping status: Never Used Substance Use Topics Alcohol use: Not Currently Comment: Alcoholic - November 2020 - last drink Drug use: Not Currently Types: Marijuana Comment: rarely- last time used was Oct 2019 BP 128/72 Pulse 76 Resp 16 Wt 60.3 kg (133 lb) LMP 05/29/2010 BMI 23.56 kg/m Physical Exam Vitals reviewed. Constitutional: General: She is not in acute distress. Appearance: She is not ill-appearing or toxic-appearing. HENT: Mouth/Throat: Mouth: Mucous membranes are moist. Eyes: Conjunctiva/sclera: Conjunctivae normal. Cardiovascular: Rate and Rhythm: Normal rate and regular rhythm. Heart sounds: Normal heart sounds. Pulmonary: Effort: Pulmonary effort is normal. Breath sounds: Decreased breath sounds (all shreman) present. No wheezing, rhonchi or rales. Skin: General: Skin is warm and dry. Neurological: Mental Status: She is alert. Psychiatric: Mood and Affect: Mood and affect normal. Cognition and Memory: Cognition normal. ASSESSMENT/PLAN: 1. Anxiety - ICD9: 300.00, ICD10: F41.9 (primary diagnosis) I had a discussion today with her that Ativan is not safe to be used as medications for anxiety. Itis good is a panic attack medication. We need to treat her for her anxiety with another medication and use the Ativan only as needed. I have cut down the amount of her Ativan to half Discussed SSRI's in detail, their side effects including weight gain in some, sexual side effects, that it needs to build up in their system and usually in the 3rd week they will start feeling the effects. Also discussed that each SSRI may affect differently , might have to try a couple before finding out a perfect fit. - ESCITALOPRAM 10 MG TABLET 2. 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 chronic pancreatitis (HCC) - ICD9: 577.1, ICD10: K86.0 Refilled her Creon - [id number] 24,000-76,000-120,000 UNIT CAPSULE,DELAYED REL 3. Chronic obstructive pulmonary disease, unspecified COPD type (HCC) - ICD9: 496, ICD10: J44.9 - LORAZEPAM 0.5 MG TABLET 4. Essential hypertension - ICD9: 401.9, ICD10: I10 - Controlled - Recommend home blood pressure monitoring, to bring results to next visit - Encouraged sodium restriction, DASH or Mediterranean diet - Recommend regular aerobic exercise. - AMLODIPINE 5 MG TABLET - METOPROLOL TARTRATE 25 MG TABLET Annmarie Elkins MD [facility] Telephone encounter Note * Telephone Encounter - Maribeth Owen LPN - 05/16/2024 7:28 PM EDT Spoke with pt and apt booked for tomorrow. Pt not out of medication. Pt will discuss medication below at apt. Maribeth Owen LPN [facility]08-19-2024 Miscellaneous Notes* Telephone Encounter - Maribeth Owen LPN - 05/16/2024 7:28 PM EDT Spoke with pt and apt booked for tomorrow. Pt not out of medication. Pt will discuss medication below at apt. Maribeth Owen LPN * Telephone Encounter - Susy Barnes LPN - 05/16/2024 6:57 PM EDT Unable to reach Patient, phone has restrictions and can not receive call. Called Domonique/Sister, asking for Patient to call & speak to nurse. Susy Barnes LPN * Telephone Encounter - Marisela Rico LPN - 05/13/2024 3:58 PM EDT Unable to contact patient via phone and does not use [employer]. Patients phone has restriction on it and can not receive call. Patient has an appointment with Soila Easton on 05/23/24 if unable to contact patient sooner. Marisela iRco LPN May 13, 2024 3:59 PM * Telephone Encounter - Annmarie Elkins MD - 05/13/2024 12:34 PM EDT Please set gracie to see me on Thursday to discuss this refill Annmarie Cisneros MD * Telephone Encounter - Maribeth Owen LPN - 05/13/2024 12:12 PM EDT The patient has been identified by name and date of : Yes Caregiver verified no other encounters exist for this prescription request: Yes Caregiver confirmed with patient/requestor that no other refills are due, in the near future, with this provider at this time: Yes The last office visit in the department: 01/12/2024 Does the patient have a future office visit with this provider/department: No, Pharmacy packages medication and has called for refill on below for pt. Pharmacy will let pt know she needs to call and schedule a follow up apt. Requested Prescriptions Pending Prescriptions Disp Refills LORazepam (ATIVAN) 0.5 mg 60 tablet 0 Sig: Take 1 tablet by mouth two times a day for 30 days. Maribeth Owen LPN May 13, 2024 12:12 PM documented in this encounterL[facility] Telephone encounter Note * Telephone Encounter - Susy Barnes LPN - 05/16/2024 6:57 PM EDT Unable to reach Patient, phone has restrictions and can not receive call. Called Domonique/Sister, asking for Patient to call & speak to nurse. Susy Barnes LPN [facility]08-16-[facility] Telephone encounter Note* Telephone Encounter - Marisela Rico LPN - 05/13/2024 3:58 PM EDT Unable to contact patient via phone and does not use [employer]. Patients phone has restriction on it and can not receive call. Patient has an appointment with Soila Easton on 05/23/24 if unable to contact patient sooner. Marisela Rico LPN May 13, 2024 3:59 PM [facility]08-16-[facility]24 Telephone encounter Note* Telephone Encounter - Annmarie Elkins MD - 05/13/2024 12:34 PM EDT Please set gracie to see me on Thursday to discuss this refill Blayne, Annmarie Elkins MD [facility]-16-[facility] Telephone encounter Note* Telephone Encounter - Maribeth Owen LPN - 05/13/2024 12:12 PM EDT The patient has been identified by name and date of : Yes Caregiver verified no other encounters exist for this prescription request: Yes Caregiver confirmed with patient/requestor that no other refills are due, in the near future, with this provider at this time: Yes The last office visit in the department: 01/12/2024 Does the patient have a future office visit with this provider/department: No, Pharmacy packages medication and has called for refill on below for pt. Pharmacy will let pt know she needs to call and schedule a follow up apt. Requested Prescriptions Pending Prescriptions Disp Refills LORazepam (ATIVAN) 0.5 mg 60 tablet 0 Sig: Take 1 tablet by mouth two times a day for 30 days. Maribeth Owen LPN May 13, 2024 12:12 PM [facility]08-07-2024 NotePatient Outreach (INTMMN) GRACIE BANUELOS ([id number]) 1965 [address]* Date Time Provider Department 05/04/24 BRITTNIANNMARIE During your visit today, we recorded the following information about you: Allergies As of Date: 05/04/2024 Noted Allergy Reaction BACTRIM (SULFAMETHOXAZOLE-TRIMETH*11/28/2022 4 - Hives HYDROCODONE 08/02/2020 9 - Itching PENICILLINS 07/07/2006 14 - Other: See Comments Comments: hives VALIUM (DIAZEPAM) 11/02/2013 14 - Other: See Comments Comments: cross reaction with alcohol addiction Date Reviewed: 01/25/2024 Reviewed by: Tara Youngblood APRN.DAYTIME CAREGIVER - Fully Assessed Visit Diagnosis:Encounter for screening mammogram for breast cancer [Z12.31] Order(s):[facility] [[id number]] Order #: [id number] FUTURE Prescriptions as of 05/09/2024 - hydrOXYzine pamoate (VISTARIL) 25 mg capsule Take 1 capsule by mouth daily at bedtime. - lisinopril (ZESTRIL) 10 mg tablet Take 1 tablet by mouth once daily. - LORazepam (ATIVAN) 0.5 mg Take 1 tablet by mouth two times a day for 30 days. Do not start before April 23, 2024. - pantoprazole DR (PROTONIX) 40 mg tablet Take 1 tablet by mouth once daily. - simvastatin (ZOCOR) 20 mg tablet Take 1 tablet by mouth daily at bedtime. - Cholecalciferol, Vitamin D3, 50 mcg (2,000 unit) cap Take 1 capsule by mouth once daily. - ondansetron orally disintegrating (ZOFRAN ODT) 4 mg disintegrating tablet Take 1 tablet by mouth every 6 hours as needed for nausea/vomiting. - Benzonatate 200 mg capsule Take 200 mg by mouth three times a day as needed. - MUCINEX D MAXIMUM STRENGTH 120-1,200 mg tab ER 12 hr TAKE 1 TABLET BY MOUTH EVERY 12 HOURS for cold SYMPTOMS - amLODIPine (NORVASC) 5 mg tablet Take 1 tablet by mouth once daily. - Blood Pressure Monitor Home blood pressure monitor - metoprolol tartrate, short acting, (LOPRESSOR) 25 mg tablet Take 1 tablet by mouth two times a day. - rebmab-tgptplbn-hgpjvov (CREON 24) 24,000-76,000 -120,000 unit delayed release capsule Take 3 capsules by mouth once daily. - cyclobenzaprine (FLEXERIL) 10 mg tablet Take 1 tablet by mouth twice daily as needed for muscle spasm. - albuterol HFA (VENTOLIN HFA) 90 mcg/actuation inhaler Inhale 2 Puffs as instructed four times daily as needed. - ferrous sulfate (SLOW FE) 140 mg (45 mg iron) TbER Take 1 tablet by mouth twice daily with meals. - ziprasidone (GEODON) 20 mg capsule Patient unsure on dosage - prescribed by Dr. Talamantes. - mirtazapine (REMERON) 45 mg tablet Prescribed by Dr. Talamantes. - multivitamin tablet Take 1 tablet by mouth once daily. - ARIPiprazole (ABILIFY) 5 mg tablet Take by mouth. - albuterol (PROVENTIL) 2.5 mg /3 mL (0.083 %) nebulizer solution Use 3 mL via nebulizer one time only for 1 dose. Use over 5-15minutes. - OXYGEN, HOME THERAPY, Inhale as instructed as directed. Patient is on 2-3 liters - COMPOUNDED PRESCRIPTION Pulse Oximetry - COMPOUNDED PRESCRIPTION nebulizer supplies (tubing) Problem List As Of Date 05/04/2024 Noted Resolved TOBACCO USE DISORDER [F17.200] 06/29/2008 Anxiety state [F41.1] 10/19/2008 Hyperlipidemia [E78.5] 01/31/2009 Essential Hypertension, Benign [I10] 09/04/2009 Gastroesophageal reflux disease [K21.9] 12/26/2009 01/10/2021 Acute gastritis without mention of hemorrhage [*10/03/2010 01/03/2015 Pancreatitis chronic 05/26/2011 08/27/2017 Chronic obstructive pulmonary disease (HCC) [J4*05/25/2012 Lumbar disc disease with radiculopathy [M51.16] 06/18/2012 Postmenopausal bleeding [N95.0] 12/07/2012 Ovarian cyst, right [N83.201] 12/27/2012 Alcoholic hepatitis without ascites [K70.10] 11/16/2013 Urine, incontinence, stress female [N39.3] 11/24/2014 HPV test positive [GLL3950] 11/24/2014 Alcohol dependence in remission (HCC) [F10.21] 07/10/2015 11/02/2018 Pulmonary emphysema (HCC) [J43.9] 11/27/2015 Irritable bowel syndrome with both constipation*08/27/2017 Alcohol use disorder, moderate, dependence (HCC*08/27/2017 DDD (degenerative disc disease), cervical [M50.*09/03/2018 Severe protein-calorie malnutrition (HCC) [E43] 01/07/2019 12/26/2022 Chronic recurrent pancreatitis (HCC) [K86.1] 01/07/2019 Reactive depression [F32.9] 04/28/2019 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 All prescriptions have been APPROPRIATELY filled. No suspiciousactivity was identified. 04/15/2024 by Soila Easton APRN.CNP [facility]07-19-2024 Miscellaneous Notes* Telephone Encounter - Soila Easton APRN.CNP - 04/15/2024 2:36 PM EDT [facility] website checked and validated. All prescriptions have been APPROPRIATELY filled. No suspiciousactivity was identified. 04/15/2024 by Soila Easton APRN.CNP * Telephone Encounter - Mike Phan RN - 04/15/2024 1:30 PM EDT The patient has been identified by name and date of : Yes Caregiver verified no other encounters exist for this prescription request: Yes Caregiver confirmed with patient/requestor that no other refills are due, in the near future, with this provider at this time: Yes The last office visit in the department: 01/12/2024 Does the patient have a future office visit with this provider/department: Yes 04/21/2024 Requested Prescriptions Pending Prescriptions Disp Refills hydrOXYzine pamoate (VISTARIL) 25 mg capsule 30 capsule 11 Sig: Take 1 capsule by mouth daily at bedtime. lisinopril (ZESTRIL) 10 mg tablet 30 tablet 11 Sig: Take 1 tablet by mouth once daily. LORazepam (ATIVAN) 0.5 mg 60 tablet 0 Sig: Take 1 tablet by mouth two times a day for 30 days. Mike Phan RN April 15, 2024 1:32 PM documented in [facility] encounterL[facility] Telephone encounter Note * Telephone Encounter - Mike Phan RN - 04/15/2024 1:30 PM EDT The patient has been identified by name and date of : Yes Caregiver verified no other encounters exist for this prescription request: Yes Caregiver confirmed with patient/requestor that no other refills are due, in the near future, with this provider at this time: Yes The last office visit in the department: 01/12/2024 Does the patient have a future office visit with this provider/department: Yes 04/21/2024 Requested Prescriptions Pending Prescriptions Disp Refills hydrOXYzine pamoate (VISTARIL) 25 mg capsule 30 capsule 11 Sig: Take 1 capsule by mouth daily at bedtime. lisinopril (ZESTRIL) 10 mg tablet 30 tablet 11 Sig: Take 1 tablet by mouth once daily. LORazepam (ATIVAN) 0.5 mg 60 tablet 0 Sig: Take 1 tablet by mouth two times a day for 30 days. Mike Phan RN April 15, 2024 1:32 PM [facility] Telephone encounter Note* Telephone Encounter - Annette Hayes APRN.CNP - 03/18/2024 3:09 PM EDT PDMP website checked and validated. All prescriptions have been APPROPRIATELY filled. No suspiciousactivity was identified. 03/18/2024 by Annette Hayes APRN.CNP [facility]06-21-2024 Miscellaneous Notes* Telephone Encounter - Annette Hayes APRN.CNP - 03/18/2024 3:09 PM EDT PDMP website checked and validated. All prescriptions have been APPROPRIATELY filled. No suspiciousactivity was identified. 03/18/2024 by Annette Hayes APRN.CNP * Telephone Encounter - Tasneem Breen - 03/18/2024 2:51 PM EDT Prescription Refill Information The patient has been identified by name and date of : Yes Caregiver verified no other encounters exist for this prescription request: Yes Caregiver confirmed with patient/requestor that no other refills are due, in the near future, with this provider at this time: Yes The last office visit in the department: 01-25-24 Does the patient have a future office visit with this provider/department: No Requested Prescriptions Pending Prescriptions Disp Refills pantoprazole DR (PROTONIX) 40 mg tablet 90 tablet 2 Sig: Take 1 tablet by mouth once daily. LORazepam (ATIVAN) 0.5 mg 60 tablet 0 Sig: Take 1 tablet by mouth two times a day for 30 days. Tasneem Jensen March 18, 2024 2:51 PM documented in this encounterL[facility] Telephone encounter Note * Telephone Encounter - Tasneem Breen 03/18/2024 2:51 PM EDT Prescription Refill Information The patient has been identified by name and date of : Yes Caregiver verified no other encounters exist for this prescription request: Yes Caregiver confirmed with patient/requestor that no other refills are due, in the near future, with this provider at this time: Yes The last office visit in the department: 01-25-24 Does the patient have a future office visit with this provider/department: No Requested Prescriptions Pending Prescriptions Disp Refills pantoprazole DR (PROTONIX) 40 mg tablet 90 tablet 2 Sig: Take 1 tablet by mouth once daily. LORazepam (ATIVAN) 0.5 mg 60 tablet 0 Sig: Take 1 tablet by mouth two times a day for 30 days. Tasneem Jensen March 18, 2024 2:51 PM [facility]06-17-2024 Telephone encounter Note* Telephone Encounter - Eda Shine LPN - 03/14/2024 2:02 PM EDT Phoned patient and left message that she should have enough medication to get her to her appointment next week with Soila Easton on 03/18/24. Eda Shine LPN [facility]06-17-2024 Miscellaneous Notes* Telephone Encounter - Eda Shine LPN - 03/14/2024 2:02 PM EDT Phoned patient and left message that she should have enough medication to get her to her appointment next week with Soila Easton on 03/18/24. Eda Shine LPN * Telephone Encounter - Julissa Burgos MD - 03/14/2024 12:53 PM EDT Last RX 02/25 for 28 day supply so should have enough to last till 03/25 Has 6/21 appointment with Soila, so should be able to get refills next week * Telephone Encounter - Catherine Pennington LPN - 03/14/2024 11:24 AM EDT [facility] calls for a refill for pt. Prescription Refill Information The patient has been identified by name and date of : Yes Caregiver verified no other encounters exist for this prescription request: No Caregiver confirmed with patient/requestor that no other refills are due, in the near future, with this provider at this time: Yes The last office visit in the department: 01/25/24 Does the patient have a future office visit with this provider/department: Yes 03/18/24 Requested Prescriptions Pending Prescriptions Disp Refills LORazepam (ATIVAN) 0.5 mg 60 tablet 0 Sig: Take 1 tablet by mouth two times a day for 30 days. Catherine Pennington LPN March 14, 2024 11:25 AM documented in this encounterL[facility]06-[facility] Telephone encounter Note * Telephone Encounter - Julissa Burgos MD - 03/14/2024 12:53 PM EDT Last RX 02/25 for 28 day supply so should have enough to last till 03/25 Has 03/18 appointment with Soila, so should be able to get refills next week [facility] Work Phone: [phone]) 486-188206-17-2024 Telephone encounter Note* Telephone Encounter - Catherine Pennington LPN - 03/14/2024 11:24 AM EDT [facility] calls for a refill for pt. Prescription Refill Information The patient has been identified by name and date of : Yes Caregiver verified no other encounters exist for this prescription request: No Caregiver confirmed with patient/requestor that no other refills are due, in the near future, with this provider at this time: Yes The last office visit in the department: 01/25/24 Does the patient have a future office visit with this provider/department: Yes 03/18/24 Requested Prescriptions Pending Prescriptions Disp Refills LORazepam (ATIVAN) 0.5 mg 60 tablet 0 Sig: Take 1 tablet by mouth two times a day for 30 days. Catherine Pennington LPN March 14, 2024 11:25 AM [facility]05-31-2024 Telephone encounter Note* Telephone Encounter - Annette Hayes APRN.CNP - 02/26/2024 3:25 PM EDT [facility] website checked and validated. All prescriptions have been APPROPRIATELY filled. No suspiciousactivity was identified. 02/26/2024 by Annette Hayes APRN.IGOR [facility]05-31-2024 Miscellaneous Notes* Telephone Encounter - Annette Hayes APRN.IGOR - 02/26/2024 3:25 PM EDT [facility] All prescriptions have been APPROPRIATELY filled. No suspiciousactivity was identified. 02/26/2024 by Annette Hayes APRN.IGOR * Telephone Encounter - Kiara Miramontes LPN - 02/26/2024 2:31 PM EDT Patient is now using [facility]. [facility] is unable to transfer this from [facility] since it is a controlled medication. Patient has been identified by name and date of : Yes Pharmacy phones for refill(s): Requested Prescriptions Pending Prescriptions Disp Refills LORazepam (ATIVAN) 0.5 mg 60 tablet 0 Sig: Take 1 tablet by mouth two times a day for 30 days. Date of last office visit in primary care: 01/12/2024 Date of next office visit in primary care: 03/18/2024 Please advise. Thank you. Kiara Miramontes LPN. documented in this encounterLake [facility] Telephone encounter Note * Telephone Encounter - Kiara Miramontes LPN - 02/26/2024 2:31 PM EDT Patient is now using [facility]. [facility] is unable to transfer this from [facility] since it is a controlled medication. Patient has been identified by name and date of : Yes Pharmacy phones for refill(s): Requested Prescriptions Pending Prescriptions Disp Refills LORazepam (ATIVAN) 0.5 mg 60 tablet 0 Sig: Take 1 tablet by mouth two times a day for 30 days. Date of last office visit in primary care: 01/12/2024 Date of next office visit in primary care: 03/18/2024 Please advise. Thank you. Kiara Miramontes LPN. [facility] Telephone encounter Note* Telephone Encounter - Soila Easton APRN.CNP - 02/19/2024 2:30 PM EDT PDMP website checked and validated. All prescriptions have been APPROPRIATELY filled. No suspiciousactivity was identified. 02/19/2024 by Soila Easton APRN.IGOR [facility]05-24-2024 Miscellaneous Notes* Telephone Encounter - Soila Easton APRN.CNP - 02/19/2024 2:30 PM EDT PDMP website checked and validated. All prescriptions have been APPROPRIATELY filled. No suspiciousactivity was identified. 02/19/2024 by Soila Easton APRN.CNP * Telephone Encounter - Eda Shine LPN - 02/19/2024 1:34 PM EDT Patient has been identified by name and date of : No Patient phones for refill(s): Requested Prescriptions Pending Prescriptions Disp Refills simvastatin (ZOCOR) 20 mg tablet 30 tablet 11 Sig: Take 1 tablet by mouth daily at bedtime. LORazepam (ATIVAN) 0.5 mg Sig: Take 1 tablet by mouth once daily. Cholecalciferol, Vitamin D3, 50 mcg (2,000 unit) cap 90 capsule 2 Sig: Take 1 capsule by mouth once daily. Date of last office visit in primary care: 01/25/2024 Date of next office visit in primary care: 03/18/2024 Please advise. Thank you. Eda Shine LPN. * Telephone Encounter - Pily Dewitt - 02/19/2024 12:28 PM EDT Patient has been identified by name and date of : Patient phones for refill(s): Requested Prescriptions Pending Prescriptions Disp Refills simvastatin (ZOCOR) 20 mg tablet 30 tablet 11 Sig: Take 1 tablet by mouth daily at bedtime. LORazepam (ATIVAN) 0.5 mg Sig: Take 1 tablet by mouth once daily. Cholecalciferol, Vitamin D3, 50 mcg (2,000 unit) cap 90 capsule 2 Sig: Take 1 capsule by mouth once daily. Date of last office visit in primary care: 01/12/2024 Date of next office visit in primary care: 03/18/2024 Please advise. Thank you. Pily Dewitt. documented in this encounterL[facility] Telephone encounter Note * Telephone Encounter - Eda Shine LPN - 02/19/2024 1:34 PM EDT Patient has been identified by name and date of : No Patient phones for refill(s): Requested Prescriptions Pending Prescriptions Disp Refills simvastatin (ZOCOR) 20 mg tablet 30 tablet 11 Sig: Take 1 tablet by mouth daily at bedtime. LORazepam (ATIVAN) 0.5 mg Sig: Take 1 tablet by mouth once daily. Cholecalciferol, Vitamin D3, 50 mcg (2,000 unit) cap 90 capsule 2 Sig: Take 1 capsule by mouth once daily. Date of last office visit in primary care: 01/25/2024 Date of next office visit in primary care: 03/18/2024 Please advise. Thank you. Eda Shine LPN. [facility]05-24-2024 Telephone encounter Note* Telephone Encounter - Pily Dewitt - 02/19/2024 12:28 PM EDT Patient has been identified by name and date of : Patient phones for refill(s): Requested Prescriptions Pending Prescriptions Disp Refills simvastatin (ZOCOR) 20 mg tablet 30 tablet 11 Sig: Take 1 tablet by mouth daily at bedtime. LORazepam (ATIVAN) 0.5 mg Sig: Take 1 tablet by mouth once daily. Cholecalciferol, Vitamin D3, 50 mcg (2,000 unit) cap 90 capsule 2 Sig: Take 1 capsule by mouth once daily. Date of last office visit in primary care: 01/12/2024 Date of next office visit in primary care: 03/18/2024 Please advise. Thank you. Pily Dewitt. [facility]05-09-2024 Miscellaneous Notes* Telephone Encounter - Soila Easton APRN.CNP - 02/04/2024 12:37 PM EDT Noted Soila Easton APRN.CNP * Telephone Encounter - Mihaela Cheng RN - 02/04/2024 9:19 AM EDT FYI: Patient calling in to update PCP that she was seen by Dr. Owen Del Rosario at [facility] recently and diagnosed with gout in her right foot. She has been prescribed medication/treatment and will be following up with them next week. Patient states if PCP team needs any of these records, to contact DR. Del Rosario's office for them. Patient will be seeing Soila Easton CNP in February. Mihaela Cheng RN documented in this encounterLake [facility] Telephone encounter Note * Telephone Encounter - Soila Easton APRN.CNP - 02/04/2024 12:37 PM EDT Noted Soila Easton APRN.CNP [facility]05-09-2024 Telephone encounter Note* Telephone Encounter - Mihaela Cheng RN - 02/04/2024 9:19 AM EDT FYI: Patient calling in to update PCP that she was seen by Dr. Owen Del Rosario at [facility] recently and diagnosed with gout in her right foot. She has been prescribed medication/treatment and will be following up with them next week. Patient states if PCP team needs any of these records, to contact DR. Del Rosario's office for them. Patient will be seeing Soila Easton CNP in February. Mihaela Cheng RN [facility]05-01-2024 Telephone encounter Note* Telephone Encounter - María Elena Sheth RN - 01/27/2024 6:04 PM EDT Spoke with patient. Given message from provider's office. Patient verbalizes understanding. María Elena Sheth RN [facility]05-01-2024 Miscellaneous Notes* Telephone Encounter - María Elena Sheth RN - 01/27/2024 6:04 PM EDT Spoke with patient. Given message from provider's office. Patient verbalizes understanding. María Elena Sheth RN * Telephone Encounter - Tara Youngblood APRN.CNP - 01/27/2024 5:19 PM EDT Only if symptoms do not resolve. Thank you, Tara Youngblood APRN.IGOR * Telephone Encounter - Pam Jones LPN - 01/27/2024 5:13 PM EDT T/C to pt gave information provided. Pt voices understanding. She asks when done with atb . Should she come back to make sure its resolved? Placed records in your basket of pulmonary visit. * Telephone Encounter - Tara Youngblood APRN.CNP - 01/27/2024 5:04 PM EDT Please call patient and let her know that chest x-ray does look like pneumonia was not completely resolved from inpatient admission. The antibiotic given at office visit will treat. Was patient able to go to pulmonary appointment yesterday that she told me about? If so, what was their input. Can weget these records. Thank you, Tara Youngblood APRN.IGOR documented in this encounterLake [facility] Telephone encounter Note * Telephone Encounter - Tara Youngblood APRN.CNP - 01/27/2024 5:19 PM EDT Only if symptoms do not resolve. Thank you, Tara Youngblood APRN.DAYTIME CAREGIVER [facility]05-01-2024 Telephone encounter Note* Telephone Encounter - Pam Jones LPN - 01/27/2024 5:13 PM EDT T/C to pt gave information provided. Pt voices understanding. She asks when done with atb . Should she come back to make sure its resolved? Placed records in your basket of pulmonary visit. [facility]05-01-2024 Telephone encounter Note* Telephone Encounter - Tara Youngblood APRN.CNP - 01/27/2024 5:04 PM EDT Please call patient and let her know that chest x-ray does look like pneumonia was not completely resolved from inpatient admission. The antibiotic given at office visit will treat. Was patient able to go to pulmonary appointment yesterday that she told me about? If so, what was their input. Can weget these records. Thank you, Tara Youngblood APRN.DAYTIME CAREGIVER [facility]04-29-2024 History of Present illness Narrative* Sonja Victor RT(R) - 01/25/2024 2:00 PM EDT Radiology Service Progress Note PATIENT NAME: Gracie Banuelos DATE OF SERVICE: January 25, 2024 TIME: 2:07 PM PATIENT IDENTITY VERIFICATION COMPLETED USING TWO (2) IDENTIFIERS: Name and Date of confirmedby patient verbally. FALL SCREENING: Has the patient had 2 falls in the last year or 1 fall with injury or currently using an Ambulatory Assistive Device (Walker, Cane, Wheelchair, Crutches, etc.)? No PATIENT GENDER DATA: Female. status: : No status: NO. PATIENT RELEVANT IMPLANT DATA REVIEWED: Yes PATIENT PRESENTS WITH AN IMPLANTABLE OR ATTACHED POLE MAKER: No RADIOLOGY DEPARTMENT: General X-ray: Exam(s) Completed: Chest X-Ray PERIPHERAL IV DATA: Not applicable SIGNED BY: RT Channing(Heath) January 25, 2024 2:07 PM documented in this encounterLake [facility] History of Present illness Narrative* Tara Youngblood APRN.DAYTIME CAREGIVER - 01/25/2024 1:20 PM EDT Chief Complaint Patient presents with: ER follow up HPI Gracie Banuelos is a 58 year old female who presents here today for Above Complaints. Gracie is an established patient of Dr. Brittni MD. She is a new patient to me today. [employer] computer system was down at time of this appointment. No access to chart during assessment/exam. Pt was aware of this prior to appointment and still agreed to appointment. Concerns today... ER follow-up --- [facility] ER visit on 01/18 d/t R foot pain and swelling x 4 days. No injury. X-ray was negative. US was negative for any clots. No blood work. Pt had recent hospital admission for COPD exacerbation and pneumonia x 3 weeks prior to this visit.Pt was given duo neb, PO ativan, and PO tramadol. Discharged home and told to follow up with podiatry if no improvement. In office today... Pt reports R ankle still swollen and painful. No know fall or injury. Was told likely arthritis from ER per pt. Has arthritis appointment next week for this. Able to bear weight with discomfort. Pt also concerned that pneumonia has not cleared up from prior admission at [facility] from 12/31-01/04. Stillvery wheezy and SOB. Was sent home on Levaquin PO but has been done with this regimen > 2 weeks ago. Pt admits to smoking again since discharge. About 10 cigarettes a day -- which pt reports is a decrease compared to her > 1 pack per day. Wearing 2L NC at baseline, has had to increase this sli ghtly to 3L with exertion the last 1-2 days. No fever/chills. Has pulmonology appointment tomorrow. BP elevated today -- Pt reports not taking metoprolol today (prescribed 25 mg BID) d/t thinking we were going to discontinue it today because she thought this might be causing her swelling. No medication today and no improvement in symptoms. BP very elevated at 170/70 in office today. Past medical history, appointments, medications, allergies reviewed. Previous Medical History PAST MEDICAL HISTORY Diagnosis Date Acute exacerbation of chronic obstructive airways disease (HCC) Alcohol dependence in remission ([facility]) 07/10/2015 Alcohol use disorder 08/27/2017 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 pancreatitis Alcoholic hepatitis 05/18/2012 Alcoholic liver disease (HCC) 11/16/2013 Anemia Anxiety with depression Asthma Chronic hypoxemic respiratory failure (HCC) COPD (chronic obstructive pulmonary disease) ([facility]) 05/25/2012 DDD (degenerative disc disease), cervical 09/03/2018 Diaphragmatic hernia without mention of obstruction or gangrene Diarrhea Diverticulosis GERD (gastroesophageal reflux disease) Hemorrhoids HLD (hyperlipidemia) HTN (hypertension) Human papillomavirus in conditions classified elsewhere and of unspecified site Irritable bowel syndrome with both constipation and diarrhea 08/27/2017 Lumbar disc disease with radiculopathy 06/18/2012 Other and unspecified alcohol dependence, unspecified drinking behavior Ovarian cyst, right 12/27/2012 Pancreatitis chronic 05/26/2011 Pneumonia of both lungs due to infectious organism 2017 Severe protein-calorie malnutrition ([facility]) 01/07/2019 Stage 3 severe COPD by GOLD classification ([facility]) 2018 Tobacco use greater than 30 years Unspecified hemorrhoids without mention of complication Urine, incontinence, stress female 11/24/2014 Previous Surgical History PAST SURGICAL HISTORY Procedure Laterality Date APPENDECTOMY at age 14 COLONOSCOPY 04/15/[address], [address] Paul Perez. COLONOSCOPY 01/23/2015 2-Tubular adenomas. Dr. Víctor Lopez. COLONOSCOPY 07/29/2017 normal COLONOSCOPY - DIAGNOSTIC 01/10/2021 10 yr interval EGD 10/03/[address] Paul Perez. EGD 07/29/2017 mild gastritis, otherwise normal EGD 01/10/2021 EGD EUS 12/05/2019 mild gastritis, chronic pancreatitis with PD stone L'SCOPE CHOLECYSTECTOMY 06/14/2021 TUBAL LIGATION HX 1987 Family History FAMILY HISTORY Problem Relation Age of Onset Diabetes Mother Hypertension Mother Rheumatologic disease Mother other (lung cancer) Mother Lung Cancer Mother Diabetes Sister Cervical Cancer Sister X 2 Hypertension Brother Lung Cancer Brother Patient Allergies ALLERGIES Allergen Reactions Bactrim [Sulfametho* Hives Hydrocodone Itching Penicillins Other: See Comments hives Valium [Diazepam] Other: See Comments cross reaction with alcohol addiction Current Medications Current Outpatient Medications on File Prior to Visit Medication Sig ondansetron orally disintegrating (ZOFRAN ODT) 4 mg disintegrating tablet Take 1 tablet by mouth every 6 hours as needed for nausea/vomiting. LORazepam (ATIVAN) 0.5 mg Take 1 tablet by mouth two times a day for 30 days. Benzonatate 200 mg capsule Take 200 mg by mouth three times a day as needed. traMADol (ULTRAM) 50 mg tablet Take by mouth. MUCINEX D MAXIMUM STRENGTH 120-1,200 mg tab ER 12 hr TAKE 1 TABLET BY MOUTH EVERY 12 HOURS for coldSYMPTOMS amLODIPine (NORVASC) 5 mg tablet Take 1 tablet by mouth once daily. Blood Pressure Monitor Home blood pressure monitor metoprolol tartrate, short acting, (LOPRESSOR) 25 mg tablet Take 1 tablet by mouth two times a day. vxueat-qbkneigx-qqoxsac (CREON 24) 24,000-76,000 -120,000 unit delayed release capsule Take 3 capsules by mouth once daily. LORazepam (ATIVAN) 0.5 mg Take 1 tablet by mouth once daily. pantoprazole DR (PROTONIX) 40 mg tablet Take 1 tablet by mouth once daily. Cholecalciferol, Vitamin D3, 50 mcg (2,000 unit) cap Take 1 capsule by mouth once daily. lisinopril (ZESTRIL) 10 mg tablet Take 1 tablet by mouth once daily. cyclobenzaprine (FLEXERIL) 10 mg tablet Take 1 tablet by mouth twice daily as needed for muscle spasm. hydrOXYzine pamoate (VISTARIL) 25 mg capsule Take 1 capsule by mouth daily at bedtime. simvastatin (ZOCOR) 20 mg tablet Take 1 tablet by mouth daily at bedtime. albuterol HFA (VENTOLIN HFA) 90 mcg/actuation inhaler Inhale 2 Puffs as instructed four times dailyas needed. ferrous sulfate (SLOW FE) 140 mg (45 mg iron) TbER Take 1 tablet by mouth twice daily with meals. ziprasidone (GEODON) 20 mg capsule Patient unsure on dosage - prescribed by Dr. Talamantes. mirtazapine (REMERON) 45 mg tablet Prescribed by Dr. Talamantes. multivitamin tablet Take 1 tablet by mouth once daily. ARIPiprazole (ABILIFY) 5 mg tablet Take by mouth. albuterol (PROVENTIL) 2.5 mg /3 mL (0.083 %) nebulizer solution Use 3 mL via nebulizer one time only for 1 dose. Use over 5-15minutes. OXYGEN, HOME THERAPY, Inhale as instructed as directed. Patient is on 2-3 liters COMPOUNDED PRESCRIPTION Pulse Oximetry COMPOUNDED PRESCRIPTION nebulizer supplies (tubing) No current facility-administered medications on file prior to visit. Social History Social History Tobacco Use Smoking status: Former Packs/day: 0.50 Years: 30.00 Additional pack years: 0.00 Total pack years: 15.00 Types: Cigarettes Quit date: 10/19/2022 Years since quittin.2 Smokeless tobacco: Never Vaping Use Vaping Use: Never used Substance Use Topics Alcohol use: Not Currently Comment: Alcoholic - November 2020 - last drink Drug use: Not Currently Types: Marijuana Comment: rarely- last time used was Oct 2019 REVIEW OF SYSTEMS: as above Reviewed relevant PMHx, PSHx, Social Hx, current medications and allergies. Review of Symptoms REVIEW OF SYSTEMS See HPI. EXAM: BP 170/70 Pulse 108 Temp 37.3 C (99.2 F) Wt 62.6 kg (138 lb) LMP 05/29/2010 SpO2 95% BMI 24.45 kg/m General Appearance: Well appearing, alert, in no acute distress, well-hydrated, well nourished.. Skin: Skin color, texture, turgor normal, no suspicious rashes or lesions. Head: Normocephalic, no masses, lesions, tenderness or abnormalities. Lungs: Unlabored on room air Positive findings: wheezing , crackles , tachypnea Shortness of breath: Upon exertion Cough. Heart: RRR without murmur, gallop, or rubs. No ectopy. Extremities: No deformities, edema, skin discoloration, clubbing or cyanosis. Good capillary refill. , Positive findings: joint location: on right ankle pain, swelling, painful movement, and stiffness. R ankle warm to touch. Peripheral Pulses: Normal, Capillary refill <2secs, strong peripheral pulses. Neurologic: Gait normal. Reflexes normal and symmetric. Sensation grossly intact.. Health Maintenance List HIV Screening Never done Alpha-1 Antitrypsin Deficiency Screening Never done Shingrix Vaccine(1 of 2) Never done Pap Testing due on 07/05/2020 Mammogram Screening due on 08/28/2021 RSV Vaccine(1 - 1-dose 60+ series) Never done Covid-19 Vaccine( 2022- season) due on 05/29/2023 Colorectal Cancer Screening due on 01/11/2024 HPV Testing due on 07/05/2024 Influenza Vaccine(Season Ended) due on 05/29/2024 BP Controlled (<130/80) due on 01/11/2025 Annual PCP Team Chronic Disease Visit due on 01/24/2025 Diabetes Screening due on 01/10/2027 Pneumococcal Vaccine(3 of 3 - PPSV23 or PCV20) due on 2028 Lipid Screening due on 01/10/2029 Spirometry Completed Hepatitis C Screening Completed DTaP,Tdap,Td Vaccine Discontinued ASSESSMENT/PLAN: 1. Pneumonia due to infectious organism, unspecified laterality, unspecified part of lung - ICD9: 486, ICD10: J18.9 (primary diagnosis) Chest x-ray to look for resolution of prior pneumonia from [facility] admission 3 weeks ago. Concern d/t ongoing symptoms. Start doxycycline BID x 10 days d/t ongoing symptoms. Continue with pulmonology recommendations at appointment tomorrow. - XR CHEST 2V FRONTAL/LAT - TRAMADOL 50 MG TABLET 2. Acute right ankle pain - ICD9: 719.47, 338.19, ICD10: M25.571 Doxycycline BID x 10 days. This will help with reactive arthritis or the start of cellulitis d/t swelling and warmth with no injury. Extended tramadol x 3 days only. Diflucan given if needed with antibiotic regimen. RICE therapy -- rest, ice, compress with OTC brace, and elevate. - XR CHEST 2V FRONTAL/LAT - TRAMADOL 50 MG TABLET - DOXYCYCLINE HYCLATE 100 MG TABLET - FLUCONAZOLE 150 MG TABLET PDMP website checked and validated. All prescriptions have been APPROPRIATELY filled. No suspiciousactivity was identified. 01/25/2024 by Tara Youngblood APRN.IGOR RTO as needed. Prescription instructions reviewed with patient as applicable. Potential red flag symptoms discussed with the patient. Reviewed appropriate action plan to take if red flag symptoms occur. Patient agreeable to treatment plan. Tara Castellanos APRN.IGOR [address] [place] [address] documented in this encounterLake [facility] Telephone encounter Note * Telephone Encounter - So Freeman LPN - 01/22/2024 3:16 PM EDT Patient calling back to check status of refill, aware WARNING COORDINATION METEOROLOGIST is still seeing patients not addressed yet. [facility]04-26-2024 Miscellaneous Notes* Telephone Encounter - So Freeman LPN - 01/22/2024 3:16 PM EDT Patient calling back to check status of refill, aware WARNING COORDINATION METEOROLOGIST is still seeing patients not addressed yet. * Telephone Encounter - Chen Chauhan LPN - 01/22/2024 3:09 PM EDT Patient has been identified by name and date of : Yes, Patient phones for refill(s): Requested Prescriptions Pending Prescriptions Disp Refills ondansetron orally disintegrating (ZOFRAN ODT) 4 mg disintegrating tablet 30 tablet 1 Sig: Take 1 tablet by mouth every 6 hours as needed for nausea/vomiting. Date of last office visit in primary care: 01/12/2024 Date of next office visit in primary care: 03/18/2024 Please advise. Thank you. Chen Chauhan LPN. * Telephone Encounter - Nohelia Zacarias - 01/22/2024 2:31 PM EDT Patient has been identified by name and date of : Yes Requested Prescriptions Pending Prescriptions Disp Refills ondansetron orally disintegrating (ZOFRAN ODT) 4 mg disintegrating tablet 30 tablet 1 Sig: Take 1 tablet by mouth every 6 hours as needed for nausea/vomiting. RX INSTRUCTIONS: Patients new medication is causing her to feel nauseous Patient aware RX will be sent to pharmacy. No need to notify patient. Nohelia Zacarias documented in this encounterLake [facility]04-[facility] Telephone encounter Note * Telephone Encounter - Chen Chauhan LPN - 01/22/2024 3:09 PM EDT Patient has been identified by name and date of : Yes, Patient phones for refill(s): Requested Prescriptions Pending Prescriptions Disp Refills ondansetron orally disintegrating (ZOFRAN ODT) 4 mg disintegrating tablet 30 tablet 1 Sig: Take 1 tablet by mouth every 6 hours as needed for nausea/vomiting. Date of last office visit in primary care: 01/12/2024 Date of next office visit in primary care: 03/18/2024 Please advise. Thank you. Chen Chauhan LPN. [facility]04-26-2024 Telephone encounter Note* Telephone Encounter - Nohelia Zacarias - 01/22/2024 2:31 PM EDT Patient has been identified by name and date of : Yes Requested Prescriptions Pending Prescriptions Disp Refills ondansetron orally disintegrating (ZOFRAN ODT) 4 mg disintegrating tablet 30 tablet 1 Sig: Take 1 tablet by mouth every 6 hours as needed for nausea/vomiting. RX INSTRUCTIONS: Patients new medication is causing her to feel nauseous Patient aware RX will be sent to pharmacy. No need to notify patient. Nohelia Zacarias [facility]04-24-2024 Telephone encounter Note* Telephone Encounter - Soila Easton APRN.CNP - 01/20/2024 7:03 AM EDT PDMP website checked and validated. All prescriptions have been APPROPRIATELY filled. No suspiciousactivity was identified. 01/20/2024 by Soila Easton APRN.CNP [facility]04-24-2024 Miscellaneous Notes* Telephone Encounter - Soila Easton APRN.CNP - 01/20/2024 7:03 AM EDT PDMP website checked and validated. All prescriptions have been APPROPRIATELY filled. No suspiciousactivity was identified. 01/20/2024 by Soila Easton APRN.IGOR * Telephone Encounter - Marge Perkins RN - 01/18/2024 8:47 AM EDT Patient has been identified by name and date of : Yes, Provider Dr Elkins Date 01/18/24 Time 0849. Pharmacy phones for refill(s): Requested Prescriptions Pending Prescriptions Disp Refills LORazepam (ATIVAN) 0.5 mg 60 tablet 0 Sig: Take 1 tablet by mouth two times a day for 30 days. Date of last office visit in primary care: 01/12/2024 Date of next office visit in primary care: 01/19/2024 Please advise. Thank you. Marge Perkins RN. documented in this encounterLake County [facility]04-[facility]24 Discharge summary Author Erik Gomez [facility] January 19, 2024 11:52pm Note Date/Time January 19, 2024 10: 42pm [facility] Medical Records Department [address] [place] [id number] Emergency Department Summary 01/19/24 MR#: [id number] Acct: [id number] Name: GRACIE BANUELOS Rep #:[id number] : 1965 58 From: Erik Gomez MD PCP: CARMEN Salazar Status:REG ER Location: ED HPI History of Present Illness Chief Complaint: Edema Informant: patient Narrative Narrative: Patient presents with about 4 days of gradual onset pain in the right foot and swelling in that area and up just above the ankle. She has had no injury. She states it just hurts her when she puts weight on it. Moving her foot and leg around when not weightbearing is not painful. She has noticed no rashes or minor skin injuries that could be a nidus for infection. She was just admitted to the hospital recently, she had a 4-day inpatient stay for pneumonia and a COPD exacerbation according to her, she was discharged just over 2 weeks ago, she states she is still a little short of breath more than normal, but she states overall she feels like her breathing and pneumonia have been improving and states I am not worried about that. She has no history of DVT or PE. Sheis not on any anticoagulation. She states she was put on metoprolol as a new medication during this past admission, and her other antihypertensives have not changed which include lisinopril and amlodipine. She is also asking for something for her anxiety. She states she is very anxious right now, and that is not necessarily something new, she usually takes Ativan for this at nighttime and she has not had it yet tonight and it is 2230. Additionally, she usually does a breathing treatment before bedtime and she is asking for 1 of those. [facility] Medical History Acute on chronic hypoxic respiratory failure Anemia Anxiety and depression Arthritis Asthma Benign hypertension Chronic pancreatitis COPD (chronic obstructive pulmonary disease) GERD (gastroesophageal reflux disease) History of alcohol abuse History of back problems HLD (hyperlipidemia) HPV (human papilloma virus) infection Pneumonia Stage 3 severe COPD by GOLD classification Tobacco abuse Home Medications cholecalciferol (vitamin D3) 50 mcg (2,000 unit) capsule 50 mcg PO DAILY SUPPLEMENT 12/29/18 [History Last Taken 10/31/22] pantoprazole 40 mg tablet,delayed release 40 mg PO DAILY GERD 08/12/20 [History Last Taken 10/31/22] albuterol sulfate 90 mcg/actuation aerosol inhaler (Ventolin HFA) 2 puff inhalation Q4H PRN shortness of breath or wheezing #18 grams 11/14/20 [Rx Last Taken 01/01/24] aripiprazole 5 mg tablet (Abilify) 5 mg PO DAILY mood 01/22/21 [History Last Taken 10/31/22] hydroxyzine pamoate 25 mg capsule 25 mg PO QHS SLEEP 06/12/21 [History Last Taken 01/01/24] mirtazapine 45 mg tablet 45 mg PO QHS sleep 01/16/22 [History Last Taken 01/01/24] bppmze-mktnknmg-hxhexsx 24,000-76,000-120,000 unit capsule,delayed rel (Creon) 2cap PO BID Check with primary doctor 11/01/22 [History Last Taken 10/31/22] simvastatin 20 mg tablet 20 mg PO QHS cholesterol 11/01/22 [History Last Taken 01/01/24] fluticasone fur. 100 mcg-umeclid 62.5 mcg-vilant 25 mcg inhalat.powder (Trelegy Ellipta) 1 inh inhalation Q24H SOB 06/30/23 [History Last Taken 01/01/24] lorazepam 0.5 mg tablet 0.5 mg PO Q12H PRN ANXIETY 01/02/24 [History Last Taken 01/01/24] amlodipine 10 mg tablet 10 mg PO DAILY 30 days #30 tabs 01/05/24 [Rx Last Taken Unknown] hydrochlorothiazide 12.5 mg capsule 12.5 mg PO BREAKFAST 30 days #30 caps 01/05/24 [Rx Last Taken Unknown] ipratropium 0.5 mg-albuterol 3 mg (2.5 mg base)/3 mL nebulization soln 3 ml inhalation Q4H PRN shortness of breath or wheezing #90 mL 01/05/24 [Rx Last Taken Unknown] levofloxacin 500 mg tablet 500 mg PO DAILY 4 days #4 tabs 01/05/24 [Rx Last Taken Unknown] metoprolol tartrate 25 mg tablet 25 mg PO BID 30 days #60 tabs 01/05/24 [Rx Last Taken Unknown] pseudoephedrine-guaifenesin ER 120 mg-1,200 mg tab,extend release 12hr (Mucinex D Maximum Strength) 1 tab PO Q12H cold symptoms 1 week #14 tabs 01/05/24 [Rx Last Taken Unknown] tramadol 50 mg tablet 50 mg PO Q6H PRN pain 2 days #8 tabs 01/19/24 [Rx Last Taken Unknown] Allergy/AdvReac Type Severity Reaction Status Date / Time clindamycin Allergy Intermediate Hives Verified 01/19/24 22:09 Penicillins Allergy Hives Verified 01/19/24 22:09 sulfamethoxazole Allergy Other Verified 01/19/24 22:09 [From Bactrim] trimethoprim [From Bactrim] Allergy Other Verified 01/19/24 22:09 hydrocodone [From Bode] AdvReac Itching Verified 01/19/24 22:09 Family History Mother Diabetes Hypertension Heart disease High cholesterol Arthritis Thyroid disorder Brother Hypertension Sister Cancer cervical Thyroid disorder Father Kidney disease Daughter Thyroid disorder Surgical History History of appendectomy History of colonoscopy History of tubal ligation Social History household members: family Smoking Status: Current every day smoker tobacco type: cigarettes Tobacco: How many years used: 30 second hand exposure: Yes alcohol intake: former details: Sober since 2020. substance use type: does not use caffeine: Yes ROS ROS ED Constitutional Constitutional ED: Denies chills or fever(s) Cardiovascular Cardiovascular: Denies chest pain Respiratory/Chest Respiratory/Chest: Reports cough and dyspnea on exertion Musculoskeletal Musculoskeletal: Reports as per HPI and extremity pain; Denies neck pain Integumentary Denies Abrasions, rash or wounds Neurologic Neurologic: Denies paresthesias or weakness Psychiatric Psychiatric: Reports anxiety; Denies suicidal ideation EXAM Physical Exam Const Vital Signs: 01/19/24 22:07 01/19/24 23:14 01/19/24 23:33 Temperature 97.6 F L 98 F Temperature Source Temporal Oral Pulse Rate 114 H 102 H 104 H Respiratory Rate 20 H 24 H 28 H Respiratory Effort Respiratory Pattern Normal Blood Pressure 161/91 H 123/105 H Blood Pressure Mean 114 111 Pulse Ox 90 94 Oxygen Delivery Method Room Air Room Air 01/19/24 23:39 Temperature Temperature Source Pulse Rate Respiratory Rate Respiratory Effort Short of Breath Respiratory Pattern Normal Blood Pressure Blood Pressure Mean Pulse Ox Oxygen Delivery Method Positive well nourished and well developed General Appearance ED: well developed and NAD Neck full ROM and supple Resp normal respiratory effort Effort and Inspection: able to speak in complete sentences Back/Spine normal ROM and normal to inspection Extremity full ROM Extremity Narrative: There is mild edema in the right ankle that progresses up a couple of centimeters, whereas on the left it is normal. The right ankle moves without any pain actively. There is no erythema or excessive warmth. The foot is normal-appearing, she indicates the area of pain is in the posterior aspect of the arch and into the hindfoot, seems more medially but she indicates it is the entire area, there is no area of reproducible tenderness, no erythema or rash, or other lesion to suggest obvious infection or injury. The midfoot and forefoot are normal-appearing without edema. Dorsalis pedis pulses 2+. Neuro oriented x3, no focal motor deficits and no sensory deficits noted Sensorium / Orientation: alert Psych mental status grossly normal and thought process normal Mood & Affect: anxious Skin no wounds Rashes: no rashes MDM MDM MDM Narrative Medical decision making narrative: Patient has some swelling about the ankle without pain in the ankle, pain seemingly in the right hindfoot only, and only when she bears weight. She states she has sprained her right ankle many times in the past but not recently. Is possible this is a bony or soft tissue injury that was seemingly minor at the time and she did not notice it, so I obtained an x-ray of the right foot. 3views of my interpretation negative for anything acute. Also since she was recently admitted to the hospital, although she had heparin prophylaxis that washer main risk factor for DVT so I obtained a venous duplex Doppler of the right lower extremity, and per the smt technician's preliminary interpretation, it is negative for any clots. At her request, she was given a duo nebulizer treatment, and oral Ativan, and an oral tramadol. She is okay going home and asking for a prescription for the tramadol for pain which I think is fine. At this time, my clinical exam is very benign and I am at a very low suspicion for an emergent limb threatening process here such as a septic arthritis and I do not think she needs any arthrocentesis or blood tests right now. This may be aninflammatory arthritis of her ankle causing this, referring pain to the foot, orsome other podiatric issue. Will give her information for podiatry to follow-upwith that she does not have resolution with supportive care, but at this time I think she can continue her medications as prescribed, since I do not think the metoprolol is causing this, and if the amlodipine was causing it it would be more likely to be bilateral. Management Discussion w/another healthcare provider: Other (vascular u/s smt technician) Discharge Plan Triage Chief Complaint: Edema ED Provider: Erik Gomez Dx/Rx/DC Orders Clinical Impression: Acute pain of right foot, Right ankle swelling Instructions: Understanding Heel Pain Prescriptions: New tramadol 50 mg tablet 50 mg PO Q6H PRN (Reason: pain) 2 Days Qty: 8 0RF No Action albuterol sulfate [Ventolin HFA] 90 mcg/actuation HFA aerosol inhaler 2 puff INHALATION Q4H PRN (Reason: shortness of breath or wheezing) Qty: 18 6RF mirtazapine 45 mg tablet 45 mg PO QHS Trelegy Ellipta 100-62.5-25 mcg blister with device 1 inh inhalation Q24H cholecalciferol (vitamin D3) 2,000 UNIT capsule 50 mcg PO DAILY pantoprazole 40 MG tablet 40 mg PO DAILY aripiprazole [Abilify] 5 mg Tablet 5 mg PO DAILY hydroxyzine pamoate 25 mg Capsule 25 mg PO QHS Hold Instructions: Hold it while taking levofloxacin for drug drug interaction. Creon 24,000-76,000 -120,000 unit capsule,delayed release(DR/EC) 2 cap PO BID simvastatin 20 mg tablet 20 mg PO QHS lorazepam 0.5 mg tablet 0.5 mg PO Q12H PRN (Reason: ANXIETY) amlodipine 10 mg Tablet 10 mg PO DAILY 30 Days Qty: 30 1RF Rx Instructions: Hold for SBP less than 130 mmHg hydrochlorothiazide 12.5 mg Capsule 12.5 mg PO BREAKFAST 30 Days Qty: 30 2RF Rx Instructions: Hold for SBP less than 130 mmHg metoprolol tartrate 25 mg Tablet 25 mg PO BID 30 Days Qty: 60 0RF Rx Instructions: Hold for heart less than 50 or systolic blood pressure less than 100 mmHg. levofloxacin 500 mg tablet 500 mg PO DAILY 4 Days Qty: 4 0RF ipratropium-albuterol 0.5 mg-3 mg(2.5 mg base)/3 mL solution for nebulization 3 ml inhalation Q4H PRN (Reason: shortness of breath or wheezing) Qty: 90 0RF Rx Instructions: until breathing returns to target peak flow/parameters pseudoephedrine-guaifenesin [Mucinex D Maximum Strength] 120-1,200 mg tablet extended release 12 hr 1 tab PO Q12H 7 Days Qty: 14 0RF Primary Care Provider: Anat Gutiérrez WARNING COORDINATION METEOROLOGIST Referrals: Wunning,Alden, DPM [Med Staff - Active Staff] - 1 Week if not improving Anat Gutiérrez WARNING COORDINATION METEOROLOGIST, WARNING COORDINATION METEOROLOGIST-C [Primary Care Provider] - Disposition Disposition: Home, Self Care What to do if you have Problems For any increased pain, shortness of breath, bleeding, nausea or vomiting, chestpain, or any unexpected problems, contact your Primary Care Provider. Call [facility] ([phone]) or report to the closest Emergency Room. Call 911 if necessary. 01/19/242 <Electronically signed by Erik Gomez MD> Cosigner Signature (if applicable): CC: WARNING COORDINATION METEOROLOGIST-C Anat Older ~ Signed [facility] Work Phone: [phone] 577-630304-22-2024 Telephone encounter Note* Telephone Encounter - Marge Perkins RN - 01/18/2024 8:47 AM EDT Patient has been identified by name and date of : Yes, Provider Dr Elkins Date 01/18/24 Time 0849. Pharmacy phones for refill(s): Requested Prescriptions Pending Prescriptions Disp Refills LORazepam (ATIVAN) 0.5 mg 60 tablet 0 Sig: Take 1 tablet by mouth two times a day for 30 days. Date of last office visit in primary care: 01/12/2024 Date of next office visit in primary care: 01/19/2024 Please advise. Thank you. Marge Perkins RN. [facility]04-16-2024 Miscellaneous Notes* Telephone Encounter - So Freeman LPN - 01/12/2024 4:09 PM EDT Phoned pharmacy and aware Metoprolol rx had been sent in per WARNING COORDINATION METEOROLOGIST. * Telephone Encounter - Anat Gutiérrez APRN.DAYTIME CAREGIVER - 01/12/2024 2:52 PM EDT She was discharged home from the hospital on this. We will continue to refill Anat Gutiérrez APRN.IGOR * Telephone Encounter - So Freeman LPN - 01/12/2024 2:11 PM EDT Cathy from [facility]'s pharmacy calling received fax on patient medication changes. Fax says to continue Metoprolol 25 mg twice daily. They do not have a Metoprolol rx for the patient. Asking if WARNING COORDINATION METEOROLOGIST wanted to send rx for the patient, or if the patient gets from another provider? Please advise documented in [facility] Instructions* Patient Instructions* Anat Gutiérrez APRN.CNP - 01/12/2024 11:36 AM EDT FOR BLOOD PRESSURE: DISCONTINUE HYDROCHLOROTHIAZIDE. DECREASE AMLODIPINE TO 5 MG DAILY. CONTINUE WITH METOPROLOL 25 MG TWICE A DAY OKAY TO RESTART HYDROXYZINE HAVE LAB WORK DONE IN ONE WEEK documented in this [facility] History of Present illness Narrative* Anat Gutiérrez APRN.CNP - 01/12/2024 11:10 AM EDT Transitional Care Management TCM Eligibility Documentation The following information was gathered during patient outreach 01/06/2024 Date of Outreach: Outreach Attempt 1: Contact Made Date of Discharge 01/05/2024 Provider Documentation Gracie Banuelos is a 58 year old female here today for a follow up from recent hospitalization. I have reviewed the patient's hospital course including discharge summary, discharge medications , follow up needs, labs, CT, and EKG with the patient and any family members present at today's visit. CC: Patient presents with: Hospital F/U HPI Gracie Banuelos is a 58 year old female who presents today for above. She was admitted to [facility] from 4/6 to 01/04 for pneumonia and COPD exacerbation. She was treated with Solumedrol and IV antibiotics (Rocephin and azithromycin). She was tachycardic and BP was elevated during admission. She was startedon HCTZ 12.5 mg daily and Metoprolol 25 mg BID, Norvasc increased to 5 mg daily. Discharged home onprednisone burst with taper, Levaquin, Duoneb, Tessalon Perles and BP medications. Patient reports SOB and cough are much better, at baseline now. Wearing oxygen at home prior to admission, uses as needed. She is still feeling exhausted and gets lightheaded with position changes. BP is low today, she is unable to check at home. Taking all medications as prescribed except she is confused about a couple of the BP meds. Levaquin was completed and has a couple more days left of theprednisone. Review of Systems Constitutional: Positive for fatigue. Negative for chills, diaphoresis, fever and unexpected weightchange. HENT: Negative for congestion, postnasal drip, rhinorrhea, sinus pressure, sinus pain and sore throat. Respiratory: Shortness of breath: baseline. Cardiovascular: Negative for chest pain, palpitations and leg swelling. Gastrointestinal: Negative for abdominal pain, diarrhea, nausea and vomiting. Neurological: Positive for light-headedness (positional). Negative for dizziness, syncope, weakness, numbness and headaches. Psychiatric/Behavioral: Negative for confusion. PAST MEDICAL HISTORY Diagnosis Date Acute exacerbation of chronic obstructive airways disease (HCC) Alcohol dependence in remission ([facility]) 07/10/2015 Alcohol use disorder 08/27/2017 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 pancreatitis Alcoholic hepatitis 05/18/2012 Alcoholic liver disease (HCC) 11/16/2013 Anemia Anxiety with depression Asthma Chronic hypoxemic respiratory failure (HCC) COPD (chronic obstructive pulmonary disease) (HCC) 05/25/2012 DDD (degenerative disc disease), cervical 09/03/2018 Diaphragmatic hernia without mention of obstruction or gangrene Diarrhea Diverticulosis GERD (gastroesophageal reflux disease) Hemorrhoids HLD (hyperlipidemia) HTN (hypertension) Human papillomavirus in conditions classified elsewhere and of unspecified site Irritable bowel syndrome with both constipation and diarrhea 08/27/2017 Lumbar disc disease with radiculopathy 06/18/2012 Other and unspecified alcohol dependence, unspecified drinking behavior Ovarian cyst, right 12/27/2012 Pancreatitis chronic 05/26/2011 Pneumonia of both lungs due to infectious organism 2018 Severe protein-calorie malnutrition (HCC) 01/07/2019 Stage 3 severe COPD by GOLD classification (HCC) 2018 Tobacco use greater than 30 years Unspecified hemorrhoids without mention of complication Urine, incontinence, stress female 11/24/2014 PAST SURGICAL HISTORY Procedure Laterality Date APPENDECTOMY at age 14 COLONOSCOPY 04/15/[address], [address] Paul Perez. COLONOSCOPY 01/23/2015 2-Tubular adenomas. Dr. Víctor Lopez. COLONOSCOPY 07/29/2017 normal COLONOSCOPY - DIAGNOSTIC 01/10/2021 10 yr interval EGD 10/03/[address] Paul Perez. EGD 07/29/2017 mild gastritis, otherwise normal EGD 01/10/2021 EGD EUS 12/05/2019 mild gastritis, chronic pancreatitis with PD stone L'SCOPE CHOLECYSTECTOMY 06/14/2021 TUBAL LIGATION 1986 ALLERGIES Bactrim [Sulfamethoxazole-Trimethoprim], Hydrocodone, Penicillins, and Valium [Diazepam] MEDICATIONS amLODIPine (NORVASC) 2.5 mg tablet Take 1 tablet by mouth once daily. metoprolol tartrate, short acting, (LOPRESSOR) 25 mg tablet Take 25 mg by mouth. (hold for heart rate less then 50 or systolic blood pressure less than 100 mmHG. tfiqmt-dopqmhfv-ynxvkmo (CREON 24) 24,000-76,000 -120,000 unit delayed release capsule Take 3 capsules by mouth once daily. LORazepam (ATIVAN) 0.5 mg Take 1 tablet by mouth once daily. LORazepam (ATIVAN) 0.5 mg Take 1 tablet by mouth two times a day for [address] (PROTONIX) 40 mg tablet Take 1 tablet by mouth once daily. Cholecalciferol, Vitamin D3, 50 mcg (2,000 unit) cap Take 1 capsule by mouth once daily. lisinopril (ZESTRIL) 10 mg tablet Take 1 tablet by mouth once daily. ondansetron orally disintegrating (ZOFRAN ODT) 4 mg disintegrating tablet Take 1 tablet by mouth every 6 hours as needed for nausea/vomiting. cyclobenzaprine (FLEXERIL) 10 mg tablet Take 1 tablet by mouth twice daily as needed for muscle spasm. hydrOXYzine pamoate (VISTARIL) 25 mg capsule Take 1 capsule by mouth daily at bedtime. simvastatin (ZOCOR) 20 mg tablet Take 1 tablet by mouth daily at bedtime. albuterol HFA (VENTOLIN HFA) 90 mcg/actuation inhaler Inhale 2 Puffs as instructed four times dailyas needed. ferrous sulfate (SLOW FE) 140 mg (45 mg iron) TbER Take 1 tablet by mouth twice daily with meals. ziprasidone (GEODON) 20 mg capsule Patient unsure on dosage - prescribed by Dr. Talamantes. mirtazapine (REMERON) [address] Talamantes. multivitamin tablet Take 1 tablet by mouth once daily. ARIPiprazole (ABILIFY) 5 mg tablet Take by mouth. albuterol (PROVENTIL) 2.5 mg /3 mL (0.083 %) nebulizer solution Use 3 mL via nebulizer one time only for 1 dose. Use over 5-15minutes. OXYGEN, HOME THERAPY, Inhale as instructed as directed. Patient is on 2-3 liters COMPOUNDED PRESCRIPTION Pulse Oximetry COMPOUNDED PRESCRIPTION nebulizer supplies (tubing) FAMILY HISTORY Problem Relation Age of Onset Diabetes Mother Hypertension Mother Rheumatologic disease Mother other (lung cancer) Mother Lung Cancer Mother Diabetes Sister Cervical Cancer Sister X 2 Hypertension Brother Lung Cancer Brother Social History Tobacco Use Smoking status: Former Packs/day: 0.50 Years: 30.00 Additional pack years: 0.00 Total pack years: 15.00 Types: Cigarettes Quit date: 10/19/2022 Years since quittin.2 Smokeless tobacco: Never Vaping Use Vaping Use: Never used Substance Use Topics Alcohol use: Not Currently Comment: Alcoholic - November 2020 - last drink Drug use: Not Currently Types: Marijuana Comment: rarely- last time used was Oct 2019 BP 96/68 Pulse 105 Resp 18 Wt 61.7 kg (136 lb) LMP 05/29/2010 SpO2 90% BMI 24.09 kg/m Physical Exam Vitals reviewed. Constitutional: General: She is not in acute distress. Appearance: She is not ill-appearing or toxic-appearing. HENT: Mouth/Throat: Mouth: Mucous membranes are moist. Eyes: Conjunctiva/sclera: Conjunctivae normal. Cardiovascular: Rate and Rhythm: Normal rate and regular rhythm. Heart sounds: Normal heart sounds. Pulmonary: Effort: Pulmonary effort is normal. Breath sounds: Decreased breath sounds (all sherman) present. No wheezing, rhonchi or rales. Skin: General: Skin is warm and dry. Neurological: Mental Status: She is alert. Psychiatric: Mood and Affect: Mood and affect normal. Cognition and Memory: Cognition normal. DATA REVIEWED: Outside chart from [facility] admission reviewed. ASSESSMENT/PLAN: 1. Essential hypertension, benign - ICD9: 401.1, ICD10: I10 (primary diagnosis) BP is low today. In review of patient's discharge medication list she was given prescription for Norvasc 10 mg daily instead of the 5 mg dose it was increased to. Her BP has been historically well controlled on the low end of normal. She is hyponatremic, likely secondary to the HCTZ. - stop HCTZ and decrease Norvasc to 5 mg daily. Continue with Metoprolol 25 mg BID - Patient is confused about her discharge medications, these were reviewed in detail with patient as well medication changes I made today. Faxed updated med list to Cathy's pharmacy to ensure changesare made to her pill packs SHANNAN. - Recommend home blood pressure monitoring, to bring results to next visit, prescription for home machine given to patient - Follow up in 2 months for hypertension visit as scheduled or sooner as needed - BLOOD PRESSURE MONITOR KIT 2. Hyponatremia - ICD9: 276.1, ICD10: E87.1 Suspect secondary to HCTZ, see plan above - repeat BASIC METABOLIC PANEL in one weeks 3. Leukocytosis, unspecified type - ICD9: 288.60, ICD10: D72.829 WBC count 25 during admission, up to 34 on labs done 01/10. Suspect this is due to treatment with prednisone and Levaquin along with recent infection - repeat COMPLETE BLOOD COUNT AND DIFFERENTIAL in one week 4. COPD with exacerbation (HCC) - ICD9: 491.21, ICD10: J44.1 Symptoms improved, at baseline. Continue with nebulizer, inhalers and home oxygen 5. Pneumonia due to infectious organism, unspecified laterality, unspecified part of lung - ICD9: 486, ICD10: J18.9 Symptoms improved. Levaquin completed. Hydroxyzine was being held to due to drug interaction with Levaquin, okay to resume now. Prescription instructions reviewed with patient as applicable. Potential red flag symptoms discussed with the patient. Reviewed appropriate action plan to take if red flag symptoms occur. Patient agreeable to treatment plan. Anat Gutiérrez APRN.DAYTIME CAREGIVER documented in this encounterL[facility] Miscellaneous Notes* Telephone Encounter - Sylvia Chawla MA - 01/06/2024 6:24 PM EDT Pt informed, verbalized understanding Sylvia Chawla MA * Telephone Encounter - Deandra Botello LPN - 01/06/2024 2:10 PM EDT Called pt for hospital follow up.TCM note completed. She is taking an antibiotic for pneumonia and she reports she has a yeast infection. She is asking for treatment for this. documented in this encounterLake [facility] History of Present illness Narrative* Deandra Botello LPN - 01/06/2024 2:00 PM EDT TRANSITION CARE MANAGEMENT (TCM) INITIAL CONTACT Nozzle Operator Outreach Provider Action/FYI: TCM Initial contact with patient post discharge, spoke to patient. Patient identified by name and . TRANSITION CARE MANAGEMENT INITIAL OUTREACH DOCUMENTATION: 01/06/2024 Date of Outreach: Outreach Attempt 1: Contact Made Date of Discharge 01/05/2024 SUMMARY: -Pt discharged from [facility] on 01/05/24. -Admitted for: hypoxia,pneumonia,COPD exac Do you have a hospital follow up appointment with your PCP? Appointment on 01/12/24 with Anat Ghotra NP. Yes. Remind patient of appointment date, time, and location. If not within 14 calendar days of discharge - please reschedule accordingly. MEDICATIONS: Many patients have questions or concerns about their medications once they are home. Were you prescribed any new medications? If yes, what are those medications? Oxycodone 5 mg every 8 hours as needed #3 Amlodipine 10 mg daily Nicotine 21 mg/24 hours Hydrochlorothiazide 12.5 mg daily hold if blood pressureSBP is less than 130 mmhg Metoprolol tarterate 25mg one twice daily hold if heart rate is 50 or systolic blood pressure less than 100mmHg Levofloxican 500mg daily #4 Benzonate 200mg one three times daily as needed #21 Were you told to hold any medications? If yes, what are those medications? Hydroxyzine pamoate 25 mg while taking the levofloxacin Were any of your medications discontinued? If yes, what are those medications? Amiodipine 2.5mg Do you have any questions about getting or taking your medications? Yes, follow site specific process for handoff to RN or LIP. Your discharge instructions/After visit Summary (AVS) are important in guiding you through the recovery process. Is there anything I might help you understand? Yes, did not receive discharge instructions/AVS at all. Restate discharge instructions from [facility] verbally, copy/paste via MyChart, mail, or provide in person. Do you have all the necessary equipment and supplies at home? Yes Medical records from recent hospitalization: Placed for provider to review Pt filled new medicines [facility] [facility]. She will call [facility]'s pharmacy to see if they can pull the new rx she got from [facility] to make sure [facility]'s pharmacy has her updated medicines. [facility] pharmacy pre packages [facility] Discharge summary Author Bert Greenwood [facility] January 05, 2024 12:07pm Note Date/Time January 05, 2024 7:40 am [facility] Medical Records Department [address] [place] [id number] Instructions for Home/Discharge Instructions 01/05/24 0739 MR#: [id number] Acct: [id number] Name: GRACIE BANUELOS Salvatore Rep #:[id number] : 1965 58 From: Bert Back PCP: Anat Easton WARNING COORDINATION METEOROLOGIST-C Status:ADM IN Discharge Instructions Diet Discharge Diet: 2000 mg Sodium Diet Activity Discharge Activity: Return to Normal Activity Weight Bearing Status: Weight bearing as tolerated Dressing / Incision Call your doctor if you observe: Fever of 101 or Higher, Coldness, Increased Pain, Numbness or Tingling, Change in Color, Inability to urinate, Inability to have a bowel movement, Using more than 1 pad per hour, Shortness of breath, Dizziness, Fainting spells, Swelling in the ankles, Chest pain, Prolonged hiccupping, Increased palpitations (irregular heartbeat) and Calf discomfort Follow Up Care When: IN 2 WEEKS Test Results: Test results from this visit will be discussed in further detail at your follow- up appointment, if applicable. Discharge Plan Admission Admit Date/Time: 01/02/24 22:11 Primary Reason for Your Visit: Pneumonia with COPD exacerbation Attending Provider: Bert Greenwood Primary Care Provider: Anat Gutiérrez WARNING COORDINATION METEOROLOGIST Consulting Providers: Carin Meraz; Anastacia Bonilla Discharge Orders/Prescriptions Prescriptions: New tramadol 50 mg Tablet 50 mg PO Q6H PRN PRN (Reason: Pain Score 6-10) 3 Days Qty: 10 0RF amlodipine 10 mg Tablet 10 mg PO DAILY 30 Days Qty: 30 1RF Rx Instructions: Hold for SBP less than 130 mmHg nicotine 21 mg/24 hr Patch 24 Hour 21 mg transdermal DAILY 28 Days Qty: 28 0RF hydrochlorothiazide 12.5 mg Capsule 12.5 mg PO BREAKFAST 30 Days Qty: 30 2RF Rx Instructions: Hold for SBP less than 130 mmHg metoprolol tartrate 25 mg Tablet 25 mg PO BID 30 Days Qty: 60 0RF Rx Instructions: Hold for heart less than 50 or systolic blood pressure less than 100 mmHg. levofloxacin 500 mg tablet 500 mg PO DAILY 4 Days Qty: 4 0RF benzonatate 200 mg capsule 200 mg PO TID PRN (Reason: cough) 7 Days Qty: 21 0RF prednisone 10 mg tablet 10 mg PO DAILY Qty: 30 0RF Rx Instructions: 40 mg for 3 days 30 mg for 3 days, 20 mg for 3 days,and 10 mg for 3 days Continued albuterol sulfate [Ventolin HFA] 90 mcg/actuation HFA aerosol inhaler 2 puff INHALATION Q4H PRN (Reason: shortness of breath or wheezing) Qty: 18 6RF mirtazapine 45 mg tablet 45 mg PO QHS Trelegy Ellipta 100-62.5-25 mcg blister with device 1 inh inhalation Q24H cholecalciferol (vitamin D3) 2,000 UNIT capsule 50 mcg PO DAILY pantoprazole 40 MG tablet 40 mg PO DAILY aripiprazole [Abilify] 5 mg Tablet 5 mg PO DAILY Creon 24,000-76,000 -120,000 unit capsule,delayed release(DR/EC) 2 cap PO BID simvastatin 20 mg tablet 20 mg PO QHS lorazepam 0.5 mg tablet 0.5 mg PO Q12H PRN (Reason: ANXIETY) Held hydroxyzine pamoate 25 mg Capsule 25 mg PO QHS Hold Instructions: Hold it while taking levofloxacin for drug drug interaction. Discontinued amlodipine 2.5 mg tablet 2.5 mg PO DAILY oxycodone 5 mg tablet 5 mg PO Q8H PRN (Reason: pain) 1 Days Qty: 3 0RF Referrals / Follow Up: SOILA EASTON NP-C [Non-Staff] - Anat Gutiérrez NP, NP-C [Primary Care Provider] - Gonzalo Sebastian DO [Med Staff - Active Staff] - Within 2 Weeks Disposition Disposition (needs filled in before D/C Order can be placed): Home, Self Care 01/05/24 1207<Electronically signed by Bert Greenwood MD>Bert Greenwood MD CC: MARY-C Anat Easton; Dr. Carin Meraz MD; Dr. Anastacia Bonilla MD ~ Signed [facility] Work Phone: 1(374) 667-275804-08-2024 Progress note Author [facility] Timo [facility] January 04, 2024 1:21pm Note Date/Time January 04, 2024 8:28 am [facility] Medical Records Department [address] [place] [address] Progress Note - Hospitalist 01/04/24 0828 MR#: [id number] Acct: [id number] Name: GRACIE BANUELOS Rep #:[id number] : 1965 58 From: Bert Back PCP: CARMEN Salazar Status:ADM IN [place] [facility] Reason for Visit Reason for Visit: Diagnoses Pneumonia, unspecified organism (01/02/24) Objective Data Objective Data Vital Signs: Vital Signs Temp Pulse Resp BP Pulse Ox O2 Del Method O2 Flow Rate 98.1 F 118 H 20 H 151/73 H 91 Nasal Cannula 2 01/04/24 03:00 01/04/24 06:53 01/04/24 06:53 01/04/24 03:00 01/04/24 06:53 01/04/24 06:53 01/04/24 06:53 Oxygen Flow Rate (L/min) 2 Oxygen Delivery Method Nasal Cannula Weight: 132 lb 15.02 oz Body Mass Index (BMI) 23.5 Intake & Output: Intake and Output for Last 24 Hours 01/02/24 01/03/24 01/04/24 23:59 23:59 23:59 Intake Total 1050 / 1050 2810 / 3110 650 / 650 Balance 1050 / 1050 2810 / 3110 650 / 650 Lab / Micro Data 01/03/24 06:33 01/03/24 06:33 Micro: Microbiology 01/03/24 00:02 Mucosa - Nasopharyngeal Respiratory Panel (PCR) - Final Rhinovirus 01/02/24 19:25 Mucosa - Nose SARS-CoV-2, Influenza & RSV (PCR) - Final Physical Exam Narrative Patient has a history of COPD and is on 2 L of home oxygen. Patient states he also has CPAP at home but she is claustrophobic therefore does not use it. Complain of rib pain due to persistent cough. Wants some stronger cough medicine with codeine. Heart rate and blood pressure elevated Physical exam General: Alert, Oriented x3, Cooperative HEENT: Atraumatic, PERRLA, EOMI, Normocephalic Oral: No Gingival or Mucosal Lesions/ Ulcerations Neck: Supple, No JVD, Negative Carotid Bruits Chest wall/Lungs: Air entry diminished in bilateral lung bases. Bilateral expiratory rhonchi and wheezing present. Cardiovascular: Sinus tachycardia, Normal S1, Normal S2, No M/G/R Abdomen: Bowel Sounds Present, Soft, Non Tender, Non-Distended : No dysuria. No renal angle tenderness. No suprapubic tenderness. Extremities: No edema, Capillary Refill Less than 3 Seconds Skin: No rashes, No breakdown Musculoskeletal: No Tenderness to Palpation of Joints or Extremities Neurological: Cranial nerves II-XII grossly intact, DTR 2+/4. No acute focal neurological deficit. Psych/Mental Status: Anxiety and mild depression Assessment & Plan Assessment/Plan (1) Pneumonia: PLAN: Plan 58-year-old female admitted with shortness of breath along with URI symptoms for2 to 3 weeks. For last 1 week her symptoms worsen including chest congestion and cough, waking up at night feeling feverish with sweats. #Community acquired pneumonia * Patient feeling much better. She feels her breathing is improved. She is on 2 L of oxygen. * She is mildly tachypneic and tachycardic today. On IV ceftriaxone and azithromycin. * breathing treatment with bronchodilators * titrate oxygen to maintain sats >90% * WBC is elevated at 25.5. * Respiratory panel positive for rhinovirus 01/03: Patient still has shortness of breath and wheezing. Hypoxia got better on room air but then again patient on 2 to 3 L of oxygen. Incentive spirometry andPep. #Acute exacerbation of COPD * In the setting of upper respiratory tract infection due to rhinovirus infectio n as well as community-acquired pneumonia * On IV Solu-Medrol. Breathing treatments and bronchodilators. Titrate oxygen to saturation above 90%. #URTI due to rhinovirus infection * management as above * #Hypertension: On amlodipine. IV hydralazine as needed 01/03: Blood pressure and heart rate are elevated. Patient on 2.5 mg amlodipine at home increased to 5 mg daily. HCTZ 12.5 mg added. DuoNeb changed to ipratropium because of sinus tachycardia. Metoprolol 25 mg twice daily to control sinus tachycardia. #Hyperlipidemia: On statin #Anxiety and depression: Mirtazapine and Abilify #History of alcohol related chronic pancreatitis: On Creon #GERD: On PPI DVT prophylaxis: Lovenox * # Charges/Coding Visit Charges Inpatient E&M: 82056 Subs Hosp L2 01/04/24 1321 <Electronically signed by Bert Greenwood MD> Cosigner Signature (if applicable): CC: ~ Signed [facility] Work Phone: 1(306) 871-831904-07-2024 Progress note Author Anastacia Bonilla [facility] January 03, 2024 11:22am Note Date/Time January 03, 2024 9:13 am [facility] Medical Records Department [address] [place] [address] Progress Note 01/03/24 0908 MR#: [id number] Acct: [id number] Name: GRACIE BANUELOS Rep #:[id number] : 1965 58 From: Anastacia Bonilla MD PCP: Anat Easton, WARNING COORDINATION METEOROLOGIST-C Status:ADM IN Location: [facility]3 JY814-1 Subjective Subjective Patient seen and examined. She was admitted with a complaint of cough and feveras well as shortness of breath and has been managed for COPD exacerbation as well as community-acquired pneumonia. She says she is feeling better today. Her breathing has improved. She denies any palpitations, dizziness, nausea or vomiting. She still is coughing. Review of systems otherwise negative. Objective Data Objective Data Vital Signs: Vital Signs Temp Pulse Resp BP Pulse Ox O2 Del Method O2 Flow Rate 98.0 F 102 H 22 H 160/74 H 87 Nasal Cannula 2 01/03/24 05:28 01/03/24 07:13 01/03/24 07:13 01/03/24 05:28 01/03/24 07:13 01/03/24 07:13 01/03/24 07:13 Oxygen Flow Rate (L/min) 2 Oxygen Delivery Method Nasal Cannula Weight: 137 lb 9.095 oz Body Mass Index (BMI) 24.3 Intake & Output: Intake and Output for Last 24 Hours 01/01/24 01/02/24 01/03/24 23:59 23:59 23:59 Intake Total 1050 / 1050 1505 / 1505 Balance 1050 / 1050 1505 / 1505 Lab / Micro Data 01/03/24 06:33 01/03/24 06:33 Labs: Laboratory Results - last 24 hr 01/02/24 19:25: WBC 25.7 H, RBC 4.99, Hgb 12.9, Hct 41.5, MCV 83.2, MCH 25.9 L, MCHC 31.1 L, RDW Std Deviation 47.1 H, RDW Coeff of Min 15.6 H, Plt Count 311, MPV 9.8, Immature Gran % (Auto) 0.800, Neut % (Auto) 81.7 H, Lymph % (Auto) 9.6 L, Kenedy % (Auto) 6.9, Eos % (Auto) 0.6, Baso % (Auto) 0.4, Absolute Neuts (auto)21.0 H, Absolute Lymphs (auto) 2.46, Nucleated RBC % 0, Differential Comment SCANNED, Diff Path Review January, Sodium 133 L, Potassium 3.9, Chloride 101, Carbon Dioxide 25.0, Anion Gap 7, BUN 14, Creatinine 0.96, Estim Creat Clear Calc 51.55, Est GFR (MDRD) Af Amer 77, Est GFR (MDRD) Non-Af 63, BUN/Creatinine Ratio 14.7, Glucose 126 H, Calcium 8.9, Troponin I High Sens 13 01/02/24 19:33: PT 14.5, INR 1.1, APTT 32.2, Total Bilirubin 0.30, Direct Bilirubin 0.13, AST 14 L, ALT 13, Alkaline Phosphatase 148 H, B-Natriuretic Peptide 75.1, Total Protein 8.3 H, Albumin 3.2, Globulin 5.1 H 01/02/24 19:54: Procalcitonin 0.11 H 01/02/24 20:35: Lactic Acid 1.2 01/03/24 06:33: WBC 25.5 H, RBC 4.72, Hgb 12.2, Hct 40.2, MCV 85.2, MCH 25.8 L, MCHC 30.3 L, RDW Std Deviation 48.8 H, RDW Coeff of Min 15.6 H, Plt Count 332, MPV 10.2, Immature Gran % (Auto) 1.700 H, Neut % (Auto) 91.3 H, Lymph % (Auto) 4.0 L, Kenedy % (Auto) 2.5, Eos % (Auto) 0.2, Baso % (Auto) 0.3, Absolute Neuts (auto) 23.3 H, Absolute Lymphs (auto) 1.02, Nucleated RBC % 0, Sodium 135 L, Potassium 4.3, Chloride 105, Carbon Dioxide 23.0, Anion Gap 7, BUN 14, Creatinine 0.98, Estim Creat Clear Calc 50.50, Est GFR (MDRD) Af Amer 74, Est GFR (MDRD) Non-Af 61, BUN/Creatinine Ratio 14.3, Glucose 227 H, Calcium 8.9, Total Bilirubin 0.20, AST 12 L, ALT 12 L, Alkaline Phosphatase 129 H, Total Protein 7.9, Albumin 2.9 L, Globulin 5.0 H, Albumin/Globulin Ratio 0.6 L Micro: Microbiology 01/03/24 00:02 Mucosa - Nasopharyngeal Respiratory Panel (PCR) - Final Rhinovirus 01/02/24 19:25 Mucosa - Nose SARS-CoV-2, Influenza & RSV (PCR) - Final ABG Data ABG results: ABG 01/02/24 20:06 Specimen Type ART Sample Site R Radial pH 7.42 Bicarbonate Actual 20.7 L Total CO2 22 Base Excess -4 L O2 Saturation 92 L O2 % 21.0 ABG pCO2 32.2 L ABG pO2 62 L Sergei Test Positive O2 Delivery Device Room Air Vent Mode Not entered Radiography Diagnostic Testing: Radiology Impression Chest X-Ray 01/02/24 19:16 IMPRESSION: No radiographic evidence of acute cardiopulmonary disease. Electronically Signed: Jeff Thakkar MD at 20:22 EDT , Chest CTA 01/02/24 20:13 IMPRESSION: Normal CTA chest examination, without a demonstrated pulmonary embolism or arterial dissection. Right middle and upper lobe infiltrates consistent with pneumonia. Electronically Signed: Jeff Thakkar MD at 21:39 EDT Reading Location ID and State: [facility] / [place] Tel , Service support , Physical Exam Const alert, oriented x3 and no apparent distress Constitutional Narrative: looks older than stated age General Appearance: cooperative HEENT normocephalic and head/scalp atraumatic Eyes EOMs intact bilaterally Neck no lymphadenopathy, supple and no JVD Lymph Lymphatic: no lymphadenopathy noted and no lymphedema noted Resp Resp Narrative: moderately diminished breath sounds bilaterally, mild wheezing, no crackles. On 2L of oxygen by nasal canula. Effort and Inspection: tachypneic Cardio regular rhythm, S1 normal heart sound, S2 normal heart sound and no murmurs Rate: tachycardic GI normal to inspection, nondistended, normoactive bowel sounds, soft to palpation,non-tender and non-distended Extremity normal capillary refill, no clubbing, cyanosis or edema and no calf tenderness General Extremity: no tenderness to palpation of joints or extremities Skin General Skin Exam: no breakdown Neuro CN's II-XII intact bilaterally, no focal motor deficits, no sensory deficits noted and deep tendon reflexes 2+ bilaterally Motor Exam: strength 5/5 throughout and general weakness Psych thought process normal, cooperative and affect normal Appearance: appropriate Assessment & Plan Assessment/Plan (1) Pneumonia: PLAN: Plan #Community acquired pneumonia * Patient feeling much better. She feels her breathing is improved. She is on 2 L of oxygen. * She is mildly tachypneic and tachycardic today. On IV ceftriaxone and azithromycin. * breathing treatment with bronchodilators * titrate oxygen to maintain sats >90% * WBC is elevated at 25.5. * Respiratory panel positive for rhinovirus * #Acute exacerbation of COPD * In the setting of upper respiratory tract infection due to rhinovirus infectio n as well as community-acquired pneumonia * On IV Solu-Medrol. Breathing treatments and bronchodilators. Titrate oxygen to saturation above 90%. * #URTI due to rhinovirus infection * management as above * #Hypertension: On amlodipine. IV hydralazine as needed #Hyperlipidemia: On statin #Anxiety and depression: Mirtazapine and Abilify #History of alcohol related chronic pancreatitis: On Creon #GERD: On PPI DVT prophylaxis: Lovenox * # Charges/Coding Visit Charges Inpatient E&M: 18195 Subs Hosp L2 01/03/24 1122 <Electronically signed by Anastacia Bonilla MD> Anastacia Bonilla MD Cosigner Signature (if applicable): CC: ~ Signed [facility] Work Phone: 1(509) 242-417004-07-2024 Discharge summary Author Víctor Huerta [facility] January 02, 2024 11:55pm Note Date/Time January 02, 2024 7:21 pm [facility] Medical Records Department [address] [place] [address] Emergency Department Summary 01/02/24 MR#: [id number] Acct: [id number] Name: GRACIE BANUELOS Rep #:[id number] : 1965 58 From: Víctor Palumbo PCP: Anat Easton WARNING COORDINATION METEOROLOGISTSierraC Status:ADM IN [facility] History of Present Illness Chief Complaint: Shortness of Breath Informant: patient Narrative Narrative: 58-year-old female presenting to the emergency room with a chief complaint of shortness of breath. Patient has a history of COPD with as needed oxygen at home. She states that 2 to 3 weeks ago she began to have viral URI-like symptoms. For about a week now she feels that the cough has worsened and she now feels fluid in her chest. She notes chest soreness. She states she has been waking up at night with sweats and feeling feverish. She notes some associated diarrhea. Cough is mildly productive. She sees Dr. Perdue for pulmonology. She states over the past week she has put herself back on oxygen. She did have emesis earlier today. Patient notes anterior chest pain that is worse with cough and movement particularly at the right lower lung sherman and she states that she has had that before with pneumonia. [facility] Medical History (Updated 01/02/24 @ 22:[address] Carin Meraz MD) Anemia Anxiety and depression Arthritis Asthma Benign hypertension Chronic pancreatitis COPD (chronic obstructive pulmonary disease) GERD (gastroesophageal reflux disease) History of alcohol abuse History of back problems HLD (hyperlipidemia) HPV (human papilloma virus) infection Stage 3 severe COPD by GOLD classification Tobacco abuse Home Medications cholecalciferol (vitamin D3) 50 mcg (2,000 unit) capsule 50 mcg PO DAILY SUPPLEMENT 12/29/18 [History Last Taken 10/31/22] pantoprazole 40 mg tablet,delayed release 40 mg PO DAILY GERD 08/12/20 [History Last Taken 10/31/22] albuterol sulfate 90 mcg/actuation aerosol inhaler (Ventolin HFA) 2 puff inhalation Q4H PRN shortness of breath or wheezing #18 grams 11/14/20 [Rx Last Taken Unknown] aripiprazole 5 mg tablet (Abilify) 5 mg PO DAILY mood 01/22/21 [History Last Taken 10/31/22] hydroxyzine pamoate 25 mg capsule 25 mg PO Q6H PRN PRN Itching 06/12/21 [History Last Taken 10/31/22] mirtazapine 45 mg tablet 45 mg PO QHS sleep 01/16/22 [History Last Taken 10/31/22] amlodipine 2.5 mg tablet 2.5 mg PO DAILY BP 11/01/22 [History Last Taken Unknown] irjlik-gaafulfz-egatyec 24,000-76,000-120,000 unit capsule,delayed rel (Creon) 1cap PO TIDCM Check with primary doctor 02/04/23 [History Last Taken 10/31/22] loperamide 2 mg capsule 2 mg PO Q4H PRN PRN Diarrhea 11/01/22 [History Last Taken Unknown] simvastatin 20 mg tablet 20 mg PO QHS cholesterol 11/01/22 [History Last Taken 10/31/22] tramadol 50 mg tablet 50 mg PO Q6H PRN pain #7 tabs 06/02/23 [Rx Last Taken Unknown] fluticasone fur. 100 mcg-umeclid 62.5 mcg-vilant 25 mcg inhalat.powder (Trelegy Ellipta) 1 inh inhalation Q24H 06/30/23 [History Last Taken Unknown] doxycycline monohydrate 100 mg capsule 100 mg PO BID #20 CAPSULES 07/08/23 [Rx Last Taken Unknown] oxycodone 5 mg tablet 5 mg PO Q8H PRN pain 1 day #3 tabs 07/08/23 [Rx Last Taken Unknown] prednisone 20 mg tablet 40 mg (2 x 20 mg) PO DAILY #8 tabs 07/08/23 [Rx Last Taken Unknown] Allergy/AdvReac Type Severity Reaction Status Date / Time Penicillins Allergy Hives Verified 01/02/24 18:59 sulfamethoxazole Allergy Other Verified 01/02/24 18:59 [From Bactrim] trimethoprim [From Bactrim] Allergy Other Verified 01/02/24 18:59 hydrocodone [From Bode] AdvReac Itching Verified 01/02/24 18:59 Family History Mother Diabetes Hypertension Heart disease High cholesterol Arthritis Thyroid disorder Brother Hypertension Sister Cancer cervical Thyroid disorder Father Kidney disease Daughter Thyroid disorder Surgical History History of appendectomy History of colonoscopy History of tubal ligation Social History household members: none Smoking Status: Current every day smoker tobacco type: cigarettes Tobacco: How many years used: 30 second hand exposure: Yes alcohol intake: former substance use type: does not use caffeine: Yes ROS ROS ED Constitutional Constitutional ED: Reports chills, fever(s) and sweats; Denies weight loss Eyes Eyes: Denies change in vision or diplopia ENT ENT ED: Reports rhinorrhea; Denies ear pain or sore throat Cardiovascular Cardiovascular: Reports chest pain and racing heartbeat; Denies orthopnea or palpitations Respiratory/Chest Respiratory/Chest: Reports cough, dyspnea and dyspnea on exertion; Denies orthopnea Gastrointestinal Gastrointestinal: Reports diarrhea, nausea and vomiting; Denies abdominal pain Genitourinary Genitourinary ED: Denies dysuria, hematuria or urinary frequency Musculoskeletal Musculoskeletal: Reports myalgias; Denies arthralgias Integumentary Denies abscess or rash Neurologic Neurologic: Denies headache(s) or weakness Psychiatric Psychiatric: Denies anxiety, depression, suicidal ideation or suicidal thoughts Endocrine Endocrinology: Denies polydipsia, polyphagia or polyuria Allergic/Immunologic Allergic/Immunologic ED: Denies mouth swelling, tongue swelling or urticaria EXAM Physical Exam Narrative Exam Narrative: Patient is sitting forward in the bed. Not quite in a full tripod position. She has audible rhonchi and wheezes. Const Vital Signs: 01/02/24 18:57 01/02/24 18:57 01/02/24 18:59 Temperature 98.1 F 98.1 F 98.1 F Temperature Source Temporal Temporal Oral Pulse Rate 120 H 120 H 116 H Respiratory Rate 24 H 24 H 21 H Respiratory Effort Respiratory Depth Respiratory Pattern Blood Pressure 126/93 H 126/93 H 130/96 H Blood Pressure Mean 104 104 107 Pulse Ox 90 90 93 Oxygen Delivery Method Room Air Room Air Room Air Oxygen Flow Rate (L/min) 01/02/24 19:23 01/02/24 19:16 01/02/24 19:59 Temperature 97.8 F Temperature Source Oral Pulse Rate 115 H Respiratory Rate 32 H Respiratory Effort Short of Breath Respiratory Depth Shallow Respiratory Pattern Normal Blood Pressure 130/96 H Blood Pressure Mean 107 Pulse Ox 93 Oxygen Delivery Method Room Air Nasal Cannula Nasal Cannula Oxygen Flow Rate (L/min) 2 2 01/02/24 21:00 01/02/24 19:40 01/02/24 20:17 Temperature 98.8 F Temperature Source Oral Pulse Rate 127 H 122 H Respiratory Rate 26 H 24 H Respiratory Effort Respiratory Depth Respiratory Pattern Tachypnea Blood Pressure 135/84 H Blood Pressure Mean 101 Pulse Ox 93 93 Oxygen Delivery Method Nasal Cannula Nasal Cannula Oxygen Flow Rate (L/min) 2 2 01/02/24 19:21 01/02/24 19:30 01/02/24 19:45 Temperature Temperature Source Pulse Rate 115 H 111 H Respiratory Rate 32 H 25 H Respiratory Effort Respiratory Depth Respiratory Pattern Blood Pressure 130/96 H 136/117 H Blood Pressure Mean 104 124 Pulse Ox 88 90 90 Oxygen Delivery Method Oxygen Flow Rate (L/min) 01/02/24 19:46 01/02/24 20:00 01/02/24 20:15 Temperature Temperature Source Pulse Rate 120 H 123 H Respiratory Rate 31 H 32 H Respiratory Effort Respiratory Depth Respiratory Pattern Blood Pressure 132/78 H 123/89 H Blood Pressure Mean 96 98 Pulse Ox 93 93 95 Oxygen Delivery Method Oxygen Flow Rate (L/min) 2 01/02/24 20:16 01/02/24 20:30 01/02/24 20:45 Temperature Temperature Source Pulse Rate 123 H 121 H Respiratory Rate 32 H 27 H Respiratory Effort Respiratory Depth Respiratory Pattern Blood Pressure 132/97 H 145/94 H 126/89 H Blood Pressure Mean 108 109 101 Pulse Ox 95 94 Oxygen Delivery Method Oxygen Flow Rate (L/min) 01/02/24 21:01 01/02/24 21:03 01/02/24 21:15 Temperature Temperature Source Pulse Rate 125 H Respiratory Rate 42 H Respiratory Effort Respiratory Depth Respiratory Pattern Blood Pressure 104/88 H 126/99 H Blood Pressure Mean 93 108 Pulse Ox Oxygen Delivery Method Oxygen Flow Rate (L/min) 01/02/24 21:30 01/02/24 21:45 Temperature Temperature Source Pulse Rate 117 H 127 H Respiratory Rate 39 H 26 H Respiratory Effort Respiratory Depth Respiratory Pattern Blood Pressure 143/94 H 135/84 H Blood Pressure Mean 110 99 Pulse Ox 92 Oxygen Delivery Method Oxygen Flow Rate (L/min) Positive well nourished and well developed General Appearance ED: well developed HEENT Reports normocephalic, head/scalp atraumatic and moist mucous membranes Eyes PERRL and EOMs intact bilaterally Neck no lymphadenopathy, supple and no JVD Chest Wall Chest Narrative: Chest wall TTP Resp Resp Narrative: Tachypnea Auscultation: rhonchi and wheezes Cardio regular rate, regular rhythm and no murmurs Rate: tachycardic GI normal to inspection, nondistended, normoactive bowel sounds and non-tender Palpation: soft Back/Spine no CVA tenderness and normal ROM Extremity normal to inspection General Extremety ED: Negative for edema General Extremity: Negative for edema Neuro oriented x3 and CN's II-XII intact bilaterally Sensorium / Orientation: alert Motor Exam: strength 5/5 throughout Psych mental status grossly normal Mood & Affect: Negative for depressed or tearful Skin no wounds Skin Narrative: There is a slightly erythematous rash over the medial aspect of the left forearmstarting from just inferior to the elbow about 8 cm inferiorly and about 5 cm wide. No increased warmth. No discrete lesions. MDM MDM MDM Narrative Medical decision making narrative: My independent interpretation of the single view chest x-ray is no pneumothorax,no consolidation, no large pleural effusion. ABG shows a pH of 7.415 pCO2 of 32.2 pO2 62.3 bicarb of 20.7. This was on room air presumed FiO2 of 21% White count returned significantly elevated 25.7 with 81.7 neutrophils. INR 1.1PTT 32.2 BMP within normal limits except for glucose of 126 sodium 133 initial troponin 13. Lactic acid is normal. Liver panel within normal limits except for slightly elevated alkaline phosphatase. Patient continued to be tachycardic and tachypneic requiring supplemental oxygendespite breathing treatments. Therefore a CTA of the chest was obtained to ruleout pulmonary embolism. No pulmonary embolism was noted. Noted to be patchy infiltrates in the right middle and right upper lobe posteriorly. Therefore Rocephin and azithromycin were administered after blood cultures. Patient notesher pain is significantly improved with Toradol Plan will be admission into the hospital. History & Record Review Discussion w/independent historian: Patient Additional record(s) reviewed:: Prior inpatient record, Prior ED visit and Priorlabs Lab Data Attestation: I reviewed the patient's lab results. Labs: Laboratory Results - last 24 hr 01/02/24 01/02/24 01/02/24 19:25 19:33 20:35 WBC 25.7 H RBC 4.99 Hgb 12.9 Hct 41.5 MCV 83.2 MCH 25.9 L MCHC 31.1 L RDW Std Deviation 47.1 H RDW Coeff of Min 15.6 H Plt Count 311 MPV 9.8 Immature Gran % (Auto) 0.800 Neut % (Auto) 81.7 H Lymph % (Auto) 9.6 L Kenedy % (Auto) 6.9 Eos % (Auto) 0.6 Baso % (Auto) 0.4 Absolute Neuts (auto) 21.0 H Absolute Lymphs (auto) 2.46 Nucleated RBC % 0 Differential Comment SCANNED Diff Path Review May foll PT 14.5 INR 1.1 APTT 32.2 Sodium 133 L Potassium 3.9 Chloride 101 Carbon Dioxide 25.0 Anion Gap 7 BUN 14 Creatinine 0.96 Estim Creat Clear Calc 51.55 Est GFR (MDRD) Af Amer 77 Est GFR (MDRD) Non-Af 63 BUN/Creatinine Ratio 14.7 Glucose 126 H Lactic Acid 1.2 Calcium 8.9 Total Bilirubin 0.30 Direct Bilirubin 0.13 AST 14 L ALT 13 Alkaline Phosphatase 148 H Troponin I High Sens 13 B-Natriuretic Peptide 75.1 Total Protein 8.3 H Albumin 3.2 Globulin 5.1 H ABG Data ABG results: ABG 01/02/24 20:06 Specimen Type ART Sample Site R Radial pH 7.42 Bicarbonate Actual 20.7 L Total CO2 22 Base Excess -4 L O2 Saturation 92 L O2 % 21.0 ABG pCO2 32.2 L ABG pO2 62 L Sergei Test Positive O2 Delivery Device Room Air Vent Mode Not entered Radiography Diagnostic Testing: Clinical Impression(s) from Imaging Studies Chest X-Ray 01/02/24 19:16 IMPRESSION: No radiographic evidence of acute cardiopulmonary disease. Electronically Signed: Jeff Thakkar MD at 20:22 EDT , Chest CTA 01/02/24 20:13 IMPRESSION: Normal CTA chest examination, without a demonstrated pulmonary embolism or arterial dissection. Right middle and upper lobe infiltrates consistent with pneumonia. Electronically Signed: Jeff Thakkar MD at 21:39 EDT , EKG Initial EKG: Attestation: I personally reviewed and interpreted this EKG as follows: Comments: Sinus tachycardia with a ventricular rate of 111 bpm. Prior EKG tracings: available for review Prior: Unchanged Management Discussion w/another healthcare provider: Hospitalist Discharge Plan Dx/Rx/DC Orders Clinical Impression: Acute on chronic hypoxic respiratory failure, COPD (chronic obstructive pulmonary disease), Pneumonia Disposition Disposition: Acute Care Hospital [facility] What to do if you have Problems For any increased pain, shortness of breath, bleeding, nausea or vomiting, chestpain, or any unexpected problems, contact your Primary Care Provider. Call [facility] ([phone]) or report to the closest Emergency Room. Call 911 if necessary. 01/02/24 8575 <Electronically signed by Víctor Huerta DO> Cosigner Signature (if applicable): CC: WARNING COORDINATION METEOROLOGIST-C Anat Easton ~ Signed [facility] Work Phone: 1(809) 395-934904-07-2024 History and physical note Author Carin Meraz [facility] January 02, 2024 10:42pm Note Date/Time January 02, 2024 10:1 0pm [facility] Medical Records Department [address] [place] [address] H&P Exam - Hospitalist 01/02/242207 MR#: [id number] Acct: [id number] Name: GRACIE BANUELOS Rep #:[id number] : 1965 58 From: Carin Meraz MD PCP: CARMEN Salazar Status:ADM IN Location: [place] [address] HPI - General General Date of Admission: 01/02/24 Date of Service: 01/02/24 Chief Complaint: URI sxs, cough, dyspnea, worsening. HPI Narrative The patient is a 58 y/o F w/ PMHx: EtOH abuse, Tobacco use, COPD/Asthma w/ Chronic Hypoxic Respiratory Failure (PRN), HTN, HLD, Chronic anemia, Anxiety andDepression, Chronic pancreatitis associated with EtOH abuse who presents to the [facility] ED on 01/02/24 with history of onset of viral upper respiratory type symptoms starting 2 to 3 weeks prior to current presentation with now worsening cough which is moist and productive with subjective fevers and diaphoresis in additionto loose stools with worsening dyspnea placing her self back on supplemental oxygen with generalized pleuritic chest discomfort worse with coughing with movement in addition to nausea and an bout of emesis on day of presentation prompting eventual ED evaluation. Patient follows with pulmonary medicine Dr. Perdue. Workup in the ED included T98.1, heart rate 120, BP 126/93, respiratory rate 24, 90% on room air, CBC with WBC 25.7, hemoglobin 12.9, platelet 311 with left shift, unremarkable coags, BMP with sodium 133, glucose 126 otherwise unremarkable, troponin 13, chest x-ray with no acute cardiopulmonary findings, blood culture x 2 pending per ED, rapid SARS COVID/influenza/RSV PCR negative, ABG with pH 7.42, bicarb 20.7, pCO2 32.2, pO2 62, CTPA with no demonstrated PE or arterial dissection, right middle and upper lobe infiltrates consistent with pneumonia, Lactic acid 1.2, EKG with sinus tachycardia with no acute evidence ofischemia. In the ED patient ministered 1 L normal saline, DuoNeb therapy, Toradol 30 mg IV x 1, Solu-Medrol 60 mg IV x 1, azithromycin 500 mg IV x 1, Rocephin 1 g IV x 1. [facility] Medical History Anemia Anxiety and depression Arthritis Asthma Benign hypertension Chronic pancreatitis COPD (chronic obstructive pulmonary disease) GERD (gastroesophageal reflux disease) History of alcohol abuse History of back problems HLD (hyperlipidemia) HPV (human papilloma virus) infection Stage 3 severe COPD by GOLD classification Tobacco abuse Home Medications cholecalciferol (vitamin D3) 50 mcg (2,000 unit) capsule 50 mcg PO DAILY SUPPLEMENT 12/29/18 [History Last Taken 10/31/22] pantoprazole 40 mg tablet,delayed release 40 mg PO DAILY GERD 08/12/20 [History Last Taken 10/31/22] albuterol sulfate 90 mcg/actuation aerosol inhaler (Ventolin HFA) 2 puff inhalation Q4H PRN shortness of breath or wheezing #18 grams 11/14/20 [Rx Last Taken Unknown] aripiprazole 5 mg tablet (Abilify) 5 mg PO DAILY mood 01/22/21 [History Last Taken 10/31/22] hydroxyzine pamoate 25 mg capsule 25 mg PO Q6H PRN PRN Itching 06/12/21 [History Last Taken 10/31/22] mirtazapine 45 mg tablet 45 mg PO QHS sleep 01/16/22 [History Last Taken 10/31/22] amlodipine 2.5 mg tablet 2.5 mg PO DAILY BP 11/01/22 [History Last Taken Unknown] kvyfmx-itebmekm-wxaokhd 24,000-76,000-120,000 unit capsule,delayed rel (Creon) 1cap PO TIDCM Check with primary doctor 11/01/22 [History Last Taken 10/31/22] loperamide 2 mg capsule 2 mg PO Q4H PRN PRN Diarrhea 11/01/22 [History Last Taken Unknown] simvastatin 20 mg tablet 20 mg PO QHS cholesterol 11/01/22 [History Last Taken 10/31/22] tramadol 50 mg tablet 50 mg PO Q6H PRN pain #7 tabs 06/02/23 [Rx Last Taken Unknown] fluticasone fur. 100 mcg-umeclid 62.5 mcg-vilant 25 mcg inhalat.powder (Trelegy Ellipta) 1 inh inhalation Q24H 06/30/23 [History Last Taken Unknown] doxycycline monohydrate 100 mg capsule 100 mg PO BID #20 CAPSULES 07/08/23 [Rx Last Taken Unknown] oxycodone 5 mg tablet 5 mg PO Q8H PRN pain 1 day #3 tabs 07/08/23 [Rx Last Taken Unknown] prednisone 20 mg tablet 40 mg (2 x 20 mg) PO DAILY #8 tabs 07/08/23 [Rx Last Taken Unknown] Allergy/AdvReac Type Severity Reaction Status Date / Time clindamycin Allergy Intermediate Hives Verified 01/02/24 22:38 Penicillins Allergy Hives Verified 01/02/24 18:59 sulfamethoxazole Allergy Other Verified 01/02/24 18:59 [From Bactrim] trimethoprim [From Bactrim] Allergy Other Verified 01/02/24 18:59 hydrocodone [From Bode] AdvReac Itching Verified 01/02/24 18:59 Family History Mother Diabetes Hypertension Heart disease High cholesterol Arthritis Thyroid disorder Brother Hypertension Sister Cancer cervical Thyroid disorder Father Kidney disease Daughter Thyroid disorder Surgical History History of appendectomy History of colonoscopy History of tubal ligation Social History (Updated 01/02/24 @ 22:[address] Carin Meraz MD) household members: family Smoking Status: Current every day smoker tobacco type: cigarettes Smoking packsper day: 1 Smoking cigarettes per day: 20.0 Tobacco: How many years used: 30 second hand exposure: Yes alcohol intake: former details: Sober since 2020. substance use type: does not use caffeine: Yes ROS ROS Narrative Admission Review of Systems: CONSTITUTIONAL: No weight loss, fever, chills, + weakness or fatigue. HEENT: + Congestion, rhinorrhea. Eyes: No visual loss, blurred vision, double vision or yellow sclerae. Ears, Nose, Throat: No hearing loss, sneezing. SKIN: No rash or itching, lesions, wounds. CARDIOVASCULAR: + Pleuritic chest discomfort. No palpitations, edema, orthopnea, syncopal events. RESPIRATORY: Dyspnea, cough with productive sputum, wheezing. No hemoptysis. GASTROINTESTINAL: + Anorexia, nausea, emesis, loose stools. No abdominal pain, melena, BRBPR. GENITOURINARY: No dysuria, frequency, urgency or retention. NEUROLOGICAL: No headache, dizziness, syncope, paralysis, ataxia, numbness or tingling in the extremities, focal weakness, change in bowel or bladder control,seizure. MUSCULOSKELETAL: + muscle, back pain, joint pain or stiffness. HEMATOLOGIC: + History of anemia. No bleeding or bruising. LYMPHATICS: No enlarged nodes. No history of splenectomy. PSYCHIATRIC: + History of anxiety and depression. ENDOCRINOLOGIC: + reports of sweating, cold or heat intolerance. No polyuria or polydipsia. ALLERGIES: + History of asthma, allergic rhinitis. Vital Signs Vital Signs Vital Signs: 01/02/24 18:57 01/02/24 18:57 01/02/24 18:59 Temperature 98.1 F 98.1 F 98.1 F Temperature Source Temporal Temporal Oral Pulse Rate 120 H 120 H 116 H Respiratory Rate 24 H 24 H 21 H Respiratory Effort Respiratory Depth Respiratory Pattern Blood Pressure 126/93 H 126/93 H 130/96 H Blood Pressure Mean 104 104 107 Pulse Ox 90 90 93 Oxygen Delivery Method Room Air Room Air Room Air Oxygen Flow Rate (L/min) 01/02/24 19:23 01/02/24 19:16 01/02/24 19:59 Temperature 97.8 F Temperature Source Oral Pulse Rate 115 H Respiratory Rate 32 H Respiratory Effort Short of Breath Respiratory Depth Shallow Respiratory Pattern Normal Blood Pressure 130/96 H Blood Pressure Mean 107 Pulse Ox 93 Oxygen Delivery Method Room Air Nasal Cannula Nasal Cannula Oxygen Flow Rate (L/min) 2 2 01/02/24 21:00 01/02/24 19:40 01/02/24 20:17 Temperature 98.8 F Temperature Source Oral Pulse Rate 127 H 122 H Respiratory Rate 26 H 24 H Respiratory Effort Respiratory Depth Respiratory Pattern Tachypnea Blood Pressure 135/84 H Blood Pressure Mean 101 Pulse Ox 93 93 Oxygen Delivery Method Nasal Cannula Nasal Cannula Oxygen Flow Rate (L/min) 2 2 01/02/24 19:21 01/02/24 19:30 01/02/24 19:45 Temperature Temperature Source Pulse Rate 115 H 111 H Respiratory Rate 32 H 25 H Respiratory Effort Respiratory Depth Respiratory Pattern Blood Pressure 130/96 H 136/117 H Blood Pressure Mean 104 124 Pulse Ox 88 90 90 Oxygen Delivery Method Oxygen Flow Rate (L/min) 01/02/24 19:46 01/02/24 20:00 01/02/24 20:15 Temperature Temperature Source Pulse Rate 120 H 123 H Respiratory Rate 31 H 32 H Respiratory Effort Respiratory Depth Respiratory Pattern Blood Pressure 132/78 H 123/89 H Blood Pressure Mean 96 98 Pulse Ox 93 93 95 Oxygen Delivery Method Oxygen Flow Rate (L/min) 2 01/02/24 20:16 01/02/24 20:30 01/02/24 20:45 Temperature Temperature Source Pulse Rate 123 H 121 H Respiratory Rate 32 H 27 H Respiratory Effort Respiratory Depth Respiratory Pattern Blood Pressure 132/97 H 145/94 H 126/89 H Blood Pressure Mean 108 109 101 Pulse Ox 95 94 Oxygen Delivery Method Oxygen Flow Rate (L/min) 01/02/24 21:01 01/02/24 21:03 01/02/24 21:15 Temperature Temperature Source Pulse Rate 125 H Respiratory Rate 42 H Respiratory Effort Respiratory Depth Respiratory Pattern Blood Pressure 104/88 H 126/99 H Blood Pressure Mean 93 108 Pulse Ox Oxygen Delivery Method Oxygen Flow Rate (L/min) 01/02/24 21:30 01/02/24 21:45 Temperature Temperature Source Pulse Rate 117 H 127 H Respiratory Rate 39 H 26 H Respiratory Effort Respiratory Depth Respiratory Pattern Blood Pressure 143/94 H 135/84 H Blood Pressure Mean 110 99 Pulse Ox 92 Oxygen Delivery Method Oxygen Flow Rate (L/min) Weight Weight: 135 lb Body Mass Index (BMI) 23.9 Physical Exam Narrative Physical Examination: General: Awake, alert, oriented x 3 and cooperative, seated upright in the ED bed, fatigued, moist coughing during evaluation, ill-appearing. Skin: Normal color, normal turgor, no icterus, no cyanosis except occasional staged ecchymoses, erythematous rash upper extremity. HEENT: AT/NC, EOMI, PERRLA, moderately dry MM, no carotid bruits or JVD noted. Lungs: Diminished, greater bases, rhonchorous, right greater than left, end expiratory wheezing, some accessory muscle usage but no distress. Heart: Mildly tachycardic with regular rhythm; no gallop, rub audible. Abdomen: Soft, NTTP, appears distended but patient notes this is chronic, mildlytympanitic, hyperactive BS, no appreciated HSM but difficult given chronic distended status. Extremities: No cyanosis, clubbing, or edema. Neurological: Patient awake, alert, oriented as noted, cognitive function intact; pupils equally reactive to light and accommodation, cranial nerves grossly normal, moving all 4 extremities, no focal deficits, strength severely globally decreased secondary to acute presentation. Psychiatric: Affect appears fatigued, ill-appearing, no acute evidence of depressive or anxiety feelings but does have underlying history. Results Lab / Micro Data 01/02/24 19:25 01/02/24 19:25 Labs: Laboratory Results - last 24 hr 01/02/24 19:25: WBC 25.7 H, RBC 4.99, Hgb 12.9, Hct 41.5, MCV 83.2, MCH 25.9 L, MCHC 31.1 L, RDW Std Deviation 47.1 H, RDW Coeff of Min 15.6 H, Plt Count 311, MPV 9.8, Immature Gran % (Auto) 0.800, Neut % (Auto) 81.7 H, Lymph % (Auto) 9.6 L, Kenedy % (Auto) 6.9, Eos % (Auto) 0.6, Baso % (Auto) 0.4, Absolute Neuts (auto)21.0 H, Absolute Lymphs (auto) 2.46, Nucleated RBC % 0, Differential Comment SCANNED, Diff Path Review January, Sodium 133 L, Potassium 3.9, Chloride 101, Carbon Dioxide 25.0, Anion Gap 7, BUN 14, Creatinine 0.96, Estim Creat Clear Calc 51.55, Est GFR (MDRD) Af Amer 77, Est GFR (MDRD) Non-Af 63, BUN/Creatinine Ratio 14.7, Glucose 126 H, Calcium 8.9, Troponin I High Sens 13 01/02/24 19:33: PT 14.5, INR 1.1, APTT 32.2, Total Bilirubin 0.30, Direct Bilirubin 0.13, AST 14 L, ALT 13, Alkaline Phosphatase 148 H, B-Natriuretic Peptide 75.1, Total Protein 8.3 H, Albumin 3.2, Globulin 5.1 H 01/02/24 20:35: Lactic Acid 1.2 Micro: Microbiology 01/02/24 19:25 Mucosa - Nose SARS-CoV-2, Influenza & RSV (PCR) - Final ABG Data ABG results: ABG 01/02/24 20:06 Specimen Type ART Sample Site R Radial pH 7.42 Bicarbonate Actual 20.7 L Total CO2 22 Base Excess -4 L O2 Saturation 92 L O2 % 21.0 ABG pCO2 32.2 L ABG pO2 62 L Sergei Test Positive O2 Delivery Device Room Air Vent Mode Not entered Imaging Radiology Impression Chest X-Ray 01/02/24 19:16 IMPRESSION: No radiographic evidence of acute cardiopulmonary disease. Electronically Signed: Jeff Thakkar MD at 20:22 EDT , Chest CTA 01/02/24 20:13 IMPRESSION: Normal CTA chest examination, without a demonstrated pulmonary embolism or arterial dissection. Right middle and upper lobe infiltrates consistent with pneumonia. Electronically Signed: Jeff Thakkar MD at 21:39 EDT , Assessment & Plan Assessment/Plan (1) Pneumonia: PLAN: Plan The patient is a 58 y/o F w/ PMHx: EtOH abuse, Tobacco use, COPD/Asthma w/ Chronic Hypoxic Respiratory Failure (PRN), HTN, HLD, Chronic anemia, Anxiety andDepression, Chronic pancreatitis associated with EtOH abuse who presents to the [facility] ED on 01/02/24 with history of onset of viral upper respiratory type symptoms starting 2 to 3 weeks prior to current presentation with now worsening cough which is moist and productive with subjective fevers and diaphoresis in additionto loose stools with worsening dyspnea placing her self back on supplemental oxygen with generalized pleuritic chest discomfort worse with coughing with movement in addition to nausea and an bout of emesis on day of presentation prompting eventual ED evaluation. #1. Acute Hypoxia on Chronic (PRN supplemental) secondary to Recent suspected Acute Viral Syndrome with now Superimposed Acute right middle and upper lobe community-acquired pneumonia and concurrent Acute on Chronic COPD/Asthma Exacerbation: Will admit to MS telemetry, maintain on oxygen with wean as tolerated to room air, continue ATC duonebs, PRN albuterol, maintained on IV Rocephin and Azithromycin, IV Solu-Medrol, HOB, IS parameters w/ pending sputum cultures, full respiratory viral panel, procalcitonin and urine antigens. #2. Left forearm erythematous rash, unclear etiology: Left forearm with erythematous rash over the medial aspect just inferior to the elbow with no increased warmth or specific abrasions or lesions, as noted above #1 planned IV Solu-Medrol, continue to monitor. #3. Chronic normocytic anemia: Admission hemoglobin 12.9, MCV 83 point, baseline hemoglobin has vacillated however labs have not been done recently, last noted 11/07/2022 8.8 however this was during an acute presentation, previousto this baseline appears 11-13, will continue to trend. #4. History of EtOH Abuse: Reportedly sober since 2020, encourage continued sobriety. #5. Hypertension: Will continue patient home amlodipine regimen, PRN hydralazine. #6. Hyperlipidemia: We will continue patient on statin therapy. #7. Anxiety and depression: We will continue patient home mirtazapine as well as hydroxyzine and Abilify home regimen. #8. Chronic pancreatitis, alcohol related: We will continue patient home Creon regimen. #9. Tobacco Abuse: Encouraged cessation, inpatient consultation per RT, NR if desired. #10. GERD: We will continue patient home PPI. #11. DVT prophylaxis: Lovenox. #12. CODE status: Patient does not have healthcare power of deputy prosecuting attorney or living will in place but notes that if she needed a medical decision maker in the case that she was unable she would want her Sister Domonique Augustine to be her decision-maker. Discussed CODE status at length including difference between FULL code, DNR-CCA and DNR-CC status. Following discussions about the differences in these status, requested Full Code status. Advanced Care Planning Face to Face Time: 16minutes. Charges/Coding Visit Charges Inpatient E&M: 45754 Init Hosp L3 Procedures Hospitalists Procedures: 59229 Advncd Care Plan 30 Min 01/02/24 2242 <Electronically signed by Carin Meraz MD> Cosigner Signature (if applicable): CC: CARMEN Coppola Older; Dr. Carin Meraz MD~ Signed [facility] Work Phone: 1(471) 485-495603-20-2024 History of Present illness Narrative* Larry Talley PA-C - 12/16/2023 2:31 PM EDT CC: Patient presents with: Medication Follow-up HPI Gracie Banuelos is a 58 year old female who presents today for medication refills - creon and lorazepam. Per pt, Dr. Sebastian (pulm) had suggested that she go to someone who would rx her Ativan to help with her breathing. Has not drank alcohol for 6 months. REVIEW OF SYSTEMS See HPI All other systems negative. PAST MEDICAL HISTORY Diagnosis Date Acute exacerbation of chronic obstructive airways disease (HCC) Alcohol dependence in remission (HCC) 07/10/2015 Alcohol use disorder 08/27/2017 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 pancreatitis Alcoholic hepatitis 05/18/2012 Alcoholic liver disease (HCC) 11/16/2013 Anemia Anxiety with depression Asthma Chronic hypoxemic respiratory failure (HCC) COPD (chronic obstructive pulmonary disease) (HCC) 05/25/2012 DDD (degenerative disc disease), cervical 09/03/2018 Diaphragmatic hernia without mention of obstruction or gangrene Diarrhea Diverticulosis GERD (gastroesophageal reflux disease) Hemorrhoids HLD (hyperlipidemia) HTN (hypertension) Human papillomavirus in conditions classified elsewhere and of unspecified site Irritable bowel syndrome with both constipation and diarrhea 08/27/2017 Lumbar disc disease with radiculopathy 06/18/2012 Other and unspecified alcohol dependence, unspecified drinking behavior Ovarian cyst, right 12/27/2012 Pancreatitis chronic 05/26/2011 Pneumonia of both lungs due to infectious organism 2017 Severe protein-calorie malnutrition (HCC) 01/07/2019 Stage 3 severe COPD by GOLD classification ([facility]) 2018 Tobacco use greater than 30 years Unspecified hemorrhoids without mention of complication Urine, incontinence, stress female 11/24/2014 PAST SURGICAL HISTORY Procedure Laterality Date APPENDECTOMY at age 14 COLONOSCOPY 04/15/[address], [address] Paul Perez. COLONOSCOPY 01/23/2015 2-Tubular adenomas. Dr. Víctor Lopez. COLONOSCOPY 07/29/2017 normal COLONOSCOPY - DIAGNOSTIC 01/10/2021 10 yr interval EGD 10/03/[address] Paul Perez. EGD 07/29/2017 mild gastritis, otherwise normal EGD 01/10/2021 EGD EUS 12/05/2019 mild gastritis, chronic pancreatitis with PD stone L'SCOPE CHOLECYSTECTOMY 06/14/2021 TUBAL LIGATION HX 1986 ALLERGIES Bactrim [Sulfamethoxazole-Trimethoprim], Hydrocodone, Penicillins, and Valium [Diazepam] MEDICATIONS amLODIPine (NORVASC) 2.5 mg tablet Take 1 tablet by mouth once daily. pantoprazole DR (PROTONIX) 40 mg tablet Take 1 tablet by mouth once daily. Cholecalciferol, Vitamin D3, 50 mcg (2,000 unit) cap Take 1 capsule by mouth once daily. lisinopril (ZESTRIL) 10 mg tablet Take 1 tablet by mouth once daily. ondansetron orally disintegrating (ZOFRAN ODT) 4 mg disintegrating tablet Take 1 tablet by mouth every 6 hours as needed for nausea/vomiting. cyclobenzaprine (FLEXERIL) 10 mg tablet Take 1 tablet by mouth twice daily as needed for muscle spasm. hydrOXYzine pamoate (VISTARIL) 25 mg capsule Take 1 capsule by mouth daily at bedtime. simvastatin (ZOCOR) 20 mg tablet Take 1 tablet by mouth daily at bedtime. bxuxrr-vlzigulp-yivzbra (CREON 24) 24,000-76,000 -120,000 unit delayed release capsule Take 3 capsules by mouth once daily. albuterol HFA (VENTOLIN HFA) 90 mcg/actuation inhaler Inhale 2 Puffs as instructed four times dailyas needed. ferrous sulfate (SLOW FE) 140 mg (45 mg iron) TbER Take 1 tablet by mouth twice daily with meals. ziprasidone (GEODON) 20 mg capsule Patient unsure on dosage - prescribed by Dr. Talamantes. mirtazapine (REMERON) [address] Talamantes. multivitamin tablet Take 1 tablet by mouth once daily. ARIPiprazole (ABILIFY) 5 mg tablet Take by mouth. albuterol (PROVENTIL) 2.5 mg /3 mL (0.083 %) nebulizer solution Use 3 mL via nebulizer one time only for 1 dose. Use over 5-15minutes. OXYGEN, HOME THERAPY, Inhale as instructed as directed. Patient is on 2-3 liters COMPOUNDED PRESCRIPTION Pulse Oximetry COMPOUNDED PRESCRIPTION nebulizer supplies (tubing) FAMILY HISTORY Problem Relation Age of Onset Diabetes Mother Hypertension Mother Rheumatologic disease Mother other (lung cancer) Mother Lung Cancer Mother Diabetes Sister Cervical Cancer Sister X 2 Hypertension Brother Lung Cancer Brother Social History Tobacco Use Smoking status: Former Packs/day: 0.50 Years: 30.00 Additional pack years: 0.00 Total pack years: 15.00 Types: Cigarettes Quit date: 10/19/2022 Years since quittin.1 Smokeless tobacco: Never Vaping Use Vaping Use: Never used Substance Use Topics Alcohol use: Not Currently Comment: Alcoholic - November 2020 - last drink Drug use: Not Currently Types: Marijuana Comment: rarely- last time used was Oct 2019 PHYSICAL EXAM BP 124/74 Pulse (!) 130 Resp 18 Wt 61.1 kg (134 lb 9.6 oz) LMP 05/29/2010 SpO2 95% BMI 23.84 kg/m General Appearance: well appearing, in no acute distress, alert Psych: mood and affect broad and appropriate Skin: Skin color, texture, turgor normal for age Lungs: Lungs clear to auscultation. No wheezing, rhonchi, rales. Heart: RRR without murmur, gallop, or rubs. Extremities: No gross deformities, significant edema, skin discoloration, clubbing or cyanosis. Neurological: Gait normal. No focal neurological deficits. Sensation grossly intact. ASSESSMENT/PLAN: 1. Tachycardia - ICD9: 785.0, ICD10: R00.0 (primary diagnosis) Normalized upon recheck manually (97 Bpm) - CBC + DIFF - COMP METABOLIC PANEL 2. 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 chronic pancreatitis (HCC) - ICD9: 577.1, ICD10: K86.0 Refills provided per pt request - [id number] 24,000-76,000-120,000 UNIT CAPSULE,DELAYED REL - CBC + DIFF - COMP METABOLIC PANEL 3. Hyperlipidemia, unspecified hyperlipidemia type - ICD9: 272.4, ICD10: E78.5 - Control undetermined, due for labs - Counseled on healthy diet and regular exercise - LIPID PANEL BASIC - CBC + DIFF - COMP METABOLIC PANEL 4. Insomnia, unspecified type - ICD9: 780.52, ICD10: G47.00 CCM on remeron - CBC + DIFF - COMP METABOLIC PANEL 5. Vitamin D deficiency - ICD9: 268.9, ICD10: E55.9 Hx of this- will check updated levels - CBC + DIFF - COMP METABOLIC PANEL 6. Chronic obstructive pulmonary disease, unspecified COPD type (HCC) - ICD9: 496, ICD10: J44.9 As advised by pulDr. Romulo cisneros - PDMP website checked and validated. All prescriptions have been APPROPRIATELY filled. No suspiciousactivity was identified. 12/16/2023 by Larry Talley PA-C - LORAZEPAM 0.5 MG TABLET - CBC + DIFF - COMP METABOLIC PANEL 7. Prediabetes - ICD9: 790.29, ICD10: R73.03 Routine screening labs ordered to further evaluate. Will call pt pending results. - CBC + DIFF - COMP METABOLIC PANEL 3 mo. F/u ativan refills Prescription instructions reviewed with patient as applicable. Potential red flag symptoms discussed with the patient. Reviewed appropriate action plan to take if red flag symptoms occur. Patient agreeable to treatment plan. Larry Talley PA-C documented in [facility] Miscellaneous Notes* Telephone Encounter - Maribeth Owen LPN - 11/04/2023 9:30 AM EST [facility]oke with [facility] and message below was related to them. They will let pt know she will need to make an apt with her pcp to discuss medication. Maribeth Owen LPN * Telephone Encounter - Mariluz Roper LPN - 11/04/2023 8:[address] Elliott has never seen this patient and she is not a hem/onc patient. This was originally sent tous in error. It looks like this was previously prescribed by Dr. Bernard Galan. Mariluz Roper LPN * Telephone Encounter - Maribeth Owen LPN - 11/03/2023 8:18 AM EST Spoke with [facility] and they were trying to reach Dr. Elliott's office. Transferred rx there. Maribeth Owen LPN * Telephone Encounter - Soila Easton APRN.CNP - 11/02/2023 4:28 PM EST PCP has not prescribed lorazepam for patient. Is she getting this elsewhere? If so she needs to follow up with that provider. Thank you Soila Easton APRN.IGOR * Telephone Encounter - Gem Swartz - 11/02/2023 3:09 PM EST Patient has been identified by name and date of : Yes, Provider PRAVEENA Pharmacy phones for refill(s): Requested Prescriptions Pending Prescriptions Disp Refills LORazepam (ATIVAN) 0.5 mg Sig: Take 1 tablet by mouth two times a day as needed (anxiety). Date of last office visit in primary care: Visit date not found Date of next office visit in primary care: Visit date not found Please advise. Thank you. Gem Swartz. documented in this encounterL[facility]-13-[facility]23 Miscellaneous Notes* Telephone Encounter - Rissa Johnson OCCA - 07/10/2023 12:11 PM EDT TC to patient who verbalized understanding of providers message below. Patient asking for medication to go to [facility] pharmacy instead of [place].Please advise. Thank you. BERNADETTE James * Telephone Encounter - Larry Talley PA-C - 07/10/2023 11:31 AM EDT Please call patient let her know that I sent in a prescription for a topical antifungal called terconazole. She is unable to take Diflucan (the oral tablet) due to interactions with her medications. Larry Talley PA-C * Telephone Encounter - Tasneem Lock - 07/09/2023 4:01 PM EDT Pt called to see if she could get something for a yeast infection. She states she is on an antibiotic and always gets a yeast infection when taking them. Scheduled for ER follow up 07/20 documented in this encounterL[facility]09-15-2023 Miscellaneous Notes* Telephone Encounter - Mike Phan RN - 06/12/2023 2:38 PM EDT Patient has been identified by name and date of : Yes, Provider Ganta Date 06-12-23 Time 2:39 pm Pharmacy phones for refill(s): Requested Prescriptions Pending Prescriptions Disp Refills pantoprazole DR (PROTONIX) 40 mg tablet 90 tablet 2 Sig: Take 1 tablet by mouth once daily. Date of last office visit with pcp: 04-15-23. Next appt: none Last 2 Encounter Wt Readings: Date: Wt: 04/15/2023 59.4 kg (131 lb) 12/26/2022 59.4 kg (131 lb) Previous labs/tests for medication: Blood Pressure: BUN (mg/dL) Date Value 02/19/2023 14 03/26/2021 7 Sodium (mmol/L) Date Value 02/19/2023 137 03/26/2021 140 Last 1 Encounter BP Readings: Date: BP: 04/15/2023 104/52 Liver Function: ALT (U/L) Date Value 04/15/2023 21 03/26/2021 9 AST (U/L) Date Value 04/15/2023 27 03/26/2021 16 Please advise. Thank you. Mike Phan RN documented in this encounterL[facility]09-13-2023 Miscellaneous Notes* Telephone Encounter - Susy Barnes LPN - 06/10/2023 11:48 AM EDT Patient has been identified by name and date of : Yes Patient phones for refill(s): Requested Prescriptions Pending Prescriptions Disp Refills Cholecalciferol, Vitamin D3, 50 mcg (2,000 unit) cap 90 capsule 2 Sig: Take 1 capsule by mouth once daily. Date of last office visit in primary care: 04/15/2023 No future appt scheduled. Last 2 Encounter Wt Readings: Date: Wt: 04/15/2023 59.4 kg (131 lb) 12/26/2022 59.4 kg (131 lb) Previous labs/tests for medication: Not applicable Please advise. Thank you. Susy Barnes LPN * Telephone Encounter - Tasneem Lock - 06/10/2023 10:46 AM EDT Patient has been identified by name and date of : Yes Last office visit in this department: 04/15/2023 RX INSTRUCTIONS: Patient aware RX will be sent to pharmacy. No need to notify patient. Patient phones requesting refills as follows: Requested Prescriptions Pending Prescriptions Disp Refills Cholecalciferol, Vitamin D3, 50 mcg (2,000 unit) cap 90 capsule 2 Sig: Take 1 capsule by mouth once daily. Please review and advise. Tasneem Lock documented in this encounterLake [facility]09-05-2023 Discharge summary Author Levar Handy [facility] June 02, 2023 4:56pm Note Date/Time June 02, 2023 4:56pm [facility] Medical Records Department [address] [place] [address] Emergency Department Summary 06/02/23 MR#: [id number] Acct: [id number] Name: GRACIE BANUELOS Rep #:[id number] : 1965 58 From: Levar Handy DO PCP: SOILA EASTON, WARNING COORDINATION METEOROLOGIST-C Status:REG ER Location: ED HPI History of Present Illness Chief Complaint: Shortness of Breath Narrative Narrative: 58-year-old female with cough and shortness of breath for 3 weeks. She also complains of right-sided facial pain in her right frontal and right cheek region. Denies any trauma. Patient has history of orbital cellulitis in the past but is not feeling the same. She does have any pain with eye movement. There is no rash over the face. Patient has had some nasal drainage. Patient is a smoker with history of COPD. She states she has breathing treatments, oxygen and everything she needs at home. [facility] Medical History Abdominal pain Alcohol abuse Alcoholic hepatitis Anemia Anxiety and depression Arthritis Asthma Benign hypertension Chronic pancreatitis COPD (chronic obstructive pulmonary disease) Diarrhea GERD (gastroesophageal reflux disease) History of back problems HPV (human papilloma virus) infection Nicotine dependence, cigarettes, uncomplicated Stage 3 severe COPD by GOLD classification Tobacco abuse Unintentional weight loss Home Medications cholecalciferol (vitamin D3) 50 mcg (2,000 unit) capsule 50 mcg PO DAILY SUPPLEMENT 12/29/18 [History Last Taken 10/31/22] pantoprazole 40 mg tablet,delayed release 40 mg PO DAILY GERD 08/12/20 [History Last Taken 10/31/22] albuterol sulfate 90 mcg/actuation aerosol inhaler (Ventolin HFA) 2 puff inhalation Q4H PRN shortness of breath or wheezing #18 grams 11/14/20 [Rx Last Taken Unknown] aripiprazole 5 mg tablet (Abilify) 5 mg PO DAILY mood 01/22/21 [History Last Taken 10/31/22] hydroxyzine pamoate 25 mg capsule 25 mg PO Q6H PRN PRN Itching 06/12/21 [History Last Taken 10/31/22] mirtazapine 45 mg tablet 45 mg PO QHS sleep 01/16/22 [History Last Taken 10/31/22] amlodipine 2.5 mg tablet 2.5 mg PO DAILY BP 11/01/22 [History Last Taken Unknown] erythromycin 5 mg/gram (0.5 %) eye ointment 0.5 inch RIGHT EYE Q6H antibiotic 11/01/22 [History Last Taken Unknown] pjuhwg-nupgwacc-mucmsyw 24,000-76,000-120,000 unit capsule,delayed rel (Creon) 1cap PO TIDCM Check with primary doctor 11/01/22 [History Last Taken 10/31/22] loperamide 2 mg capsule 2 mg PO Q4H PRN PRN Diarrhea 11/01/22 [History Last Taken Unknown] polyvinyl alcohol 1.4 % eye drops 2 drp ophthalmic (eye) Q6H eye infection 11/01/22 [History Last Taken 11/01/22] simvastatin 20 mg tablet 20 mg PO QHS cholesterol 11/01/22 [History Last Taken 10/31/22] prednisone 20 mg tablet 40 mg (2 x 20 mg) PO BREAKFAST #8 tabs 11/07/22 [Rx Last Taken Unknown] doxycycline hyclate 100 mg tablet 100 mg PO BID #20 tabs 06/02/23 [Rx Last Taken Unknown] tramadol 50 mg tablet 50 mg PO Q6H PRN pain #7 tabs 06/02/23 [Rx Last Taken Unknown] Allergy/AdvReac Type Severity Reaction Status Date / Time Penicillins Allergy Hives Verified 11/01/22 19:37 hydrocodone [From Bode] AdvReac Itching Verified 11/01/22 19:37 Family History Mother Diabetes Hypertension Heart disease High cholesterol Arthritis Thyroid disorder Brother Hypertension Sister Cancer cervical Thyroid disorder Father Kidney disease Daughter Thyroid disorder Surgical History History of appendectomy History of colonoscopy History of tubal ligation Social History Smoking Status: Former smoker quit date: 02/20/18 pack-years: 75 Tobacco: How many years used: 30 second hand exposure: Yes alcohol intake: current alcohol intake frequency: 3 or more drinks per day Alcohol type: beer substance use type: does not use caffeine: Yes ROS ROS ED Constitutional Constitutional ED: Denies chills, fever(s) or sweats Eyes Eyes: Denies blurry vision or change in vision ENT ENT ED: Reports rhinorrhea and other Details: Sinus pressure in the right forehead and right facial region ; Denies ear pain or sore throat Cardiovascular Cardiovascular: Denies chest pain, palpitations or racing heartbeat Respiratory/Chest Respiratory/Chest: Reports cough and dyspnea; Denies sputum Gastrointestinal Gastrointestinal: Denies abdominal pain, constipation, diarrhea, nausea or vomiting Genitourinary Genitourinary ED: Denies dysuria, hematuria or urinary frequency Musculoskeletal Musculoskeletal: Denies arthralgias, myalgias or neck pain Integumentary Denies abscess, Abrasions or rash Neurologic Neurologic: Denies headache(s), paresthesias or weakness Psychiatric Psychiatric: Denies anxiety, depression, suicidal ideation or suicidal thoughts Endocrine Endocrinology: Denies polydipsia or polyuria EXAM Physical Exam Const Vital Signs: 06/02/23 15:01 06/02/23 15:55 Temperature 97.2 F L Temperature Source Temporal Pulse Rate 100 Respiratory Rate 17 Respiratory Effort Normal Respiratory Depth Normal Respiratory Pattern Normal Blood Pressure 148/99 H Blood Pressure Mean 115 Pulse Ox 95 Oxygen Delivery Method Room Air Room Air Positive well nourished General Appearance ED: NAD HEENT Reports moist mucous membranes Eyes PERRL and EOMs intact bilaterally Neck no lymphadenopathy and supple Resp normal respiratory effort Resp Narrative: Scattered mild wheezes. Cardio regular rate and regular rhythm Neuro oriented x3 and CN's II-XII intact bilaterally Sensorium / Orientation: alert Psych mental status grossly normal Skin no wounds General Skin Exam: Negative for jaundice MDM MDM MDM Narrative Medical decision making narrative: Patient presenting with shortness of breath and cough. Still having facial painand pressure. On exam she does have percussion tenderness of the frontal and maxillary sinuses. CBC was obtained to assess white blood cell count, hemoglobin, platelets. BMP to assess renal function and electrolytes. Chest x-raywas obtained to rule out pneumonia. Patient's lab work-up was ultimately unremarkable. Chest x-ray my interpretation shows no acute process. Radiologist interprets and agrees. She does have some scattered mild wheezes but does not want treatment. Does want to be treated for sinusitis due to her facial pain and pressure. I will start her on doxycycline because she has a severe penicillin allergy. Patient will also be given a short supply of tramadol for pain at home. Return precautions discussed. Impression: 1. Dyspnea 2. Cough 3. Sinusitis Lab Data Attestation: I reviewed the patient's lab results. Labs: Laboratory Results - last 24 hr 06/02/23 15:06 WBC 11.7 H RBC 4.88 Hgb 13.3 Hct 40.6 MCV 83.2 MCH 27.3 MCHC 32.8 RDW Std Deviation 46.1 H RDW Coeff of Min 15.3 H Plt Count 361 MPV 10.1 Immature Gran % (Auto) 0.800 Neut % (Auto) 63.1 Lymph % (Auto) 25.1 [place] % (Auto) 6.4 Eos % (Auto) 3.6 Baso % (Auto) 1.0 Absolute Neuts (auto) 7.4 Absolute Lymphs (auto) 2.95 Nucleated RBC % 0 Sodium 141 Potassium 4.2 Chloride 105 Carbon Dioxide 27.0 Anion Gap 9 BUN 6 L Creatinine 0.87 Estim Creat Clear Calc 56.88 Est GFR (MDRD) Af Amer 86 Est GFR (MDRD) Non-Af 71 BUN/Creatinine Ratio 6.9 L Glucose 117 H Calcium 9.3 Radiography Diagnostic Testing: Clinical Impression(s) from Imaging Studies Chest X-Ray 06/02/23 15:25 IMPRESSION: Hyperinflation. Decreased bronchovascular markings in the upper lobes suggestive of emphysematous change. Electronically Signed: Zaid Justice MD at 15:38 EDT , Discharge Plan Triage Chief Complaint: Shortness of Breath ED Provider: Levar Handy Dx/Rx/DC Orders Clinical Impression: Sinusitis Instructions: ED Sinusitis (Antibiotic Treatment) Prescriptions: New tramadol 50 mg tablet 50 mg PO Q6H PRN (Reason: pain) Qty: 7 0RF doxycycline hyclate 100 mg tablet 100 mg PO BID Qty: 20 0RF No Action albuterol sulfate [Ventolin HFA] 90 mcg/actuation HFA aerosol inhaler 2 puff INHALATION Q4H PRN (Reason: shortness of breath or wheezing) Qty: 18 6RF mirtazapine 45 mg tablet 45 mg PO QHS cholecalciferol (vitamin D3) 2,000 UNIT capsule 50 mcg PO DAILY pantoprazole 40 MG tablet 40 mg PO DAILY aripiprazole [Abilify] 5 mg Tablet 5 mg PO DAILY hydroxyzine pamoate 25 mg Capsule 25 mg PO Q6H PRN PRN (Reason: Itching) Creon 24,000-76,000 -120,000 unit capsule,delayed release(DR/EC) 1 cap PO TIDCM loperamide 2 mg capsule 2 mg PO Q4H PRN PRN (Reason: Diarrhea) polyvinyl alcohol 1.4 % drops 2 drp ophthalmic (eye) Q6H amlodipine 2.5 mg tablet 2.5 mg PO DAILY simvastatin 20 mg tablet 20 mg PO QHS erythromycin 5 mg/gram (0.5 %) ointment 0.5 inch RIGHT EYE Q6H prednisone 20 mg Tablet 40 mg PO BREAKFAST Qty: 8 0RF Primary Care Provider: SOILA EASTON Referrals: SOILA EASTON NP-C [Primary Care Provider] - Disposition Disposition: Home, Self Care What to do if you have Problems For any increased pain, shortness of breath, bleeding, nausea or vomiting, chestpain, or any unexpected problems, contact your Primary Care Provider. Call [facility] ([phone]) or report to the closest Emergency Room. Call 911 if necessary. 06/02/23 1656 <Electronically signed by Levar Handy DO> Cosigner Signature (if applicable): CC: CARMEN EASTON ~ Signed [facility] Work Phone: 1(901) 945-611608-21-2023 Miscellaneous Notes* Telephone Encounter - Eva Martines RN - 05/18/2023 1:32 PM EDT Last Office Visit: 04/12/2023 Future Office Visit: None Requested Prescriptions Pending Prescriptions Disp Refills lisinopril (ZESTRIL) 10 mg tablet 30 tablet 11 Sig: Take 1 tablet by mouth once daily. documented in this encounterL[facility] Instructions* Patient Instructions* Larry Talley PA-C - 04/15/2023 1:24 PM EDT [facility] to see if it's safe to take Cyclobenzaprine (Flexeril)at night with Geodon and Mirtazapine (Remeron) documented in this encounterLake [facility]07-19-[facility] History of Present illness Narrative* Larry Talley PA-C - 04/15/2023 12:43 PM EDT CC: Patient presents with: Right ear pain HPI Gracie Banuelos is a 57 year old female who presents today for multiple complaints. C/o R ear pain xa couple weeks. States that she held off going to the ED or UC because she was coming in here today. Intermittently waxes and wanes - described as throbbing sensation. Relieved w/ Tylenol temporarily, and then comes right back a couple hours later. Denies diminished hearing, drainage, vertigo. No hx of ear issues aside from isolated ear infected. 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 Tolliver suggested her dentures may notbe properly aligned/fitted. Does admit to using Q-tips on a regular basis. Notes her throat is somewhat irritated as well. Pt is also requesting refill on zofran for PRN nausea, which she tends to get with eating but states they never discovered a cause for this. REVIEW OF SYSTEMS Review of Systems Constitutional: Negative for chills and fever. HENT: Positive for ear pain, postnasal drip, rhinorrhea (Mucoid drainage, but states this is baseline w/ allergies), sinus pressure, sinus pain and sore throat. Negative for ear discharge and hearingloss. Respiratory: Negative for cough, shortness of breath and wheezing. Neurological: Negative for headaches. PAST MEDICAL HISTORY Diagnosis Date Acute exacerbation of chronic obstructive airways disease (HCC) Alcohol dependence in remission (HCC) 07/10/2015 Alcohol use disorder 08/27/2017 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 pancreatitis Alcoholic hepatitis 05/18/2012 Alcoholic liver disease (HCC) 11/16/2013 Anemia Anxiety with depression Asthma Chronic hypoxemic respiratory failure ([facility]) COPD (chronic obstructive pulmonary disease) ([facility]) 05/25/2012 DDD (degenerative disc disease), cervical 09/03/2018 Diaphragmatic hernia without mention of obstruction or gangrene Diarrhea Diverticulosis GERD (gastroesophageal reflux disease) Hemorrhoids HLD (hyperlipidemia) HTN (hypertension) Human papillomavirus in conditions classified elsewhere and of unspecified site Irritable bowel syndrome with both constipation and diarrhea 08/27/2017 Lumbar disc disease with radiculopathy 06/18/2012 Other and unspecified alcohol dependence, unspecified drinking behavior Ovarian cyst, right 12/27/2012 Pancreatitis chronic 05/26/2011 Pneumonia of both lungs due to infectious organism 2017 Severe protein-calorie malnutrition ([facility]) 01/07/2019 Stage 3 severe COPD by GOLD classification ([facility]) 2018 Tobacco use greater than 30 years Unspecified hemorrhoids without mention of complication Urine, incontinence, stress female 11/24/2014 PAST SURGICAL HISTORY Procedure Laterality Date APPENDECTOMY at age 14 COLONOSCOPY 04/15/[address], [address] Paul Perez. COLONOSCOPY 01/23/2015 2-Tubular adenomas. Dr. Víctor Lopez. COLONOSCOPY 07/29/2017 normal COLONOSCOPY - DIAGNOSTIC 01/10/2021 10 yr interval EGD 10/03/[address] Paul Perez. EGD 07/29/2017 mild gastritis, otherwise normal EGD 01/10/2021 EGD EUS 12/05/2019 mild gastritis, chronic pancreatitis with PD stone L'SCOPE CHOLECYSTECTOMY 06/14/2021 TUBAL LIGATION HX 1986 ALLERGIES Bactrim [Sulfamethoxazole-Trimethoprim], Hydrocodone, Penicillins, and Valium [Diazepam] MEDICATIONS amLODIPine (NORVASC) 2.5 mg tablet Take 1 tablet by mouth once daily. hydrOXYzine pamoate (VISTARIL) 25 mg capsule Take 1 capsule by mouth daily at bedtime. simvastatin (ZOCOR) 20 mg tablet Take 1 tablet by mouth daily at bedtime. czyinx-zothtjog-ujsdmlq (CREON 24) 24,000-76,000 -120,000 unit delayed release capsule Take 3 capsules by mouth once daily. nystatin (MYCOSTATIN) 100,000 unit/mL suspension Take 5 mL by mouth four times daily. 1tsp swish inmouth for several minutes, then swallow (or expectorate) 4 times daily until gone. Cholecalciferol, Vitamin D3, 50 mcg (2,000 unit) cap Take 1 capsule by mouth once daily. pantoprazole DR (PROTONIX) 40 mg tablet Take 1 tablet by mouth once daily. albuterol HFA (VENTOLIN HFA) 90 mcg/actuation inhaler Inhale 2 Puffs as instructed four times dailyas needed. lisinopril (ZESTRIL, PRINIVIL) 10 mg tablet Take 1 tablet by mouth once daily. bshuseyqemn-iqxorgxio-gogeibfv (TRELEGY ELLIPTA) 100-62.5-25 mcg inhalation powder DAILY ondansetron orally disintegrating (ZOFRAN ODT) 4 mg disintegrating tablet Take 1 tablet by mouth every 6 hours as needed for nausea/vomiting. ferrous sulfate (SLOW FE) 140 mg (45 mg iron) TbER Take 1 tablet by mouth twice daily with meals. ziprasidone (GEODON) 20 mg capsule Patient unsure on dosage - prescribed by Dr. Talamantes. mirtazapine (REMERON) [address] Talamantes. multivitamin tablet Take 1 tablet by mouth once daily. ARIPiprazole (ABILIFY) 5 mg tablet Take by mouth. busPIRone (BUSPAR) 10 mg tablet Take 1 tablet by mouth three times daily. Ear Thermometer misc 1 Each once daily as needed. albuterol (PROVENTIL) 2.5 mg /3 mL (0.083 %) nebulizer solution Use 3 mL via nebulizer one time only for 1 dose. Use over 5-15minutes. OXYGEN, HOME THERAPY, Inhale as instructed as directed. Patient is on 2-3 liters COMPOUNDED PRESCRIPTION Pulse Oximetry COMPOUNDED PRESCRIPTION nebulizer supplies (tubing) FAMILY HISTORY Problem Relation Age of Onset Diabetes Mother Hypertension Mother Rheumatologic disease Mother other (lung cancer) Mother Lung Cancer Mother Diabetes Sister Cervical Cancer Sister X 2 Hypertension Brother Lung Cancer Brother Social History Tobacco Use Smoking status: Former Packs/day: 0.50 Years: 30.00 Total pack years: 15.00 Types: Cigarettes Quit date: 10/19/2022 Years since quittin.4 Smokeless tobacco: Never Vaping Use Vaping Use: Never used Substance Use Topics Alcohol use: Not Currently Comment: Alcoholic - November 2020 - last drink Drug use: Not Currently Types: Marijuana Comment: rarely- last time used was Oct 2019 PHYSICAL EXAM BP 104/52 (BP Site: Left Arm, BP Position: Sitting, BP Cuff Size: Large Adult) Pulse 104 Temp 36.2 C (97.2 F) Resp 16 Ht 160 cm (5' 3) Wt 59.4 kg (131 lb) LMP 05/29/2010 SpO2 94% BMI23.21 kg/m Physical Exam Constitutional: General: She is not in acute distress. Appearance: She is not ill-appearing or toxic-appearing. HENT: Head: Normocephalic. Right Ear: Hearing, ear canal and external ear normal. No middle ear effusion. There is no impactedcerumen. Tympanic membrane is retracted. Tympanic membrane is not injected or bulging. Left Ear: Hearing, ear canal and external ear normal. No middle ear effusion. There is no impacted cerumen. Tympanic membrane is retracted. Tympanic membrane is not injected or bulging. Nose: Nose normal. Mouth/Throat: Mouth: Mucous membranes are moist. Comments: Denture wearer. Diminished ROM noted while checking TMJ. Rather significant tenderness and palpable muscle spasm noted TMJ bilaterally (R>L). Eyes: Conjunctiva/sclera: Conjunctivae normal. Cardiovascular: Rate and Rhythm: Normal rate and regular rhythm. Pulmonary: Effort: Pulmonary effort is normal. Breath sounds: No decreased breath sounds, wheezing or rhonchi. Neurological: Mental Status: She is alert. ASSESSMENT/PLAN: 1. Arthralgia of right temporomandibular joint - ICD9: 524.62, ICD10: M26.621 (primary diagnosis) Suspect otalgia to be referred pain secondary to TMJ arthalgia/possible clenching. Myofascial release technique performed with subjective relief in sx. Stretching exercises advised and/or handouts given, application of heat/ice advised, pain control addressed - CYCLOBENZAPRINE 10 MG TABLET 2. Insomnia, unspecified type - ICD9: 780.52, ICD10: G47.00 On Mirtazapine and Geodon - encouraged pt to speak to psych about adjusting treatment for this issue 3. Nausea - ICD9: 787.02, ICD10: R11.0 Refills provided on zofran per pt request - ONDANSETRON 4 MG DISINTEGRATING TABLET 4. Alcohol use disorder, moderate, dependence (HCC) - ICD9: 303.90, ICD10: F10.20 Reviewed all previous labs to see what was due for upcoming routine 3 mo. Visit -- all performed within past 3 months except for hepatic function - HEPATIC FUNCTION PNL Prescription instructions reviewed with patient as applicable. Potential red flag symptoms discussed with the patient. Reviewed appropriate action plan to take if red flag symptoms occur. Patient agreeable to treatment plan. Larry Talley PA-C documented in this encounterL[facility] Miscellaneous Notes* Telephone Encounter - Maribeth Mcgill Aysha CHIN - 03/24/2023 8:14 AM EDT Patient has been identified by name and date of : Yes, Provider Dr. Elkins Date 03/24/23 Time 8:14 am Pharmacy phones for refill(s): Requested Prescriptions Pending Prescriptions Disp Refills amLODIPine (NORVASC) 2.5 mg tablet 30 tablet 5 Sig: Take 1 tablet by mouth once daily. hydrOXYzine pamoate (VISTARIL) 25 mg capsule 30 capsule 11 Sig: Take 1 capsule by mouth daily at bedtime. simvastatin (ZOCOR) 20 mg tablet 30 tablet 11 Sig: Take 1 tablet by mouth daily at bedtime. Date of last office visit in primary care: 12/26/22 next apt 03/30/23 Last 2 Encounter Wt Readings: Date: Wt: 12/26/2022 59.4 kg (131 lb) 11/28/2022 58.5 kg (129 lb) Previous labs/tests for medication: Cholesterol: HDL Cholesterol (mg/dL) Date Value 04/17/2022 48 07/19/2021 52 LDL Cholesterol (mg/dL) Date Value 04/17/2022 80 07/19/2021 93 ALT (U/L) Date Value 04/17/2022 16 03/26/2021 9 Non HDL Cholesterol (mg/dL) Date Value 04/17/2022 125 07/19/2021 120 Blood Pressure: BUN (mg/dL) Date Value 02/19/2023 14 03/26/2021 7 Sodium (mmol/L) Date Value 02/19/2023 137 03/26/2021 140 Last 1 Encounter BP Readings: Date: BP: 12/26/2022 130/60 Thank you. Maribeth Owen LPN documented in this encounterL[facility] Miscellaneous Notes* Telephone Encounter - Soila Easton APRN.CNP - 12/31/2022 1:25 PM EDT Prescription refilled. Soila Easton APRN.CNP * Telephone Encounter - Efren Thao LPN - 12/31/2022 10:33 AM EDT Pt calling to see if she can get something called in for Thrush. Pt states she has had this in the past. She believes it is from her inhaler. States she doesn't always rinse her mouth as often as sheshould after use. Call pt only if problem. Efren Thao LPN documented in this encounterL[facility] History of Present illness Narrative* Soila Easton APRN.CNP - 11/28/2022 1:03 PM EST CC: Patient presents with: Recheck: Follow up, discuss labs HPI Gracie Banuelos is a 57 year old female who presents today to discuss prediabetes. Was seen by PCP last week and had blood work completed. Labs were adressed by PCP but HGBA1c was 6.4 so patient wanted to come in and discuss further. Was in the hospital for over a month for orbital cellulitis, acute kidney injury, and pneumonia with COPD exacerbation recently which she received large amount of steroids was received during the hospitalization and prednisone post discharge. Finished steroids about 2 weeks ago. No history of Diabetes and does not check her blood sugar at home. Drinks large amount of pop and desserts. Denies any weakness, increased thirst/hunger/urination, fatigue, chest pain, or any other concerns.Does have numbness to her thighs she is seeing neurology for. REVIEW OF SYSTEMS General: no fevers, no chills, no night sweats, no recurrent infections, no change in appetite, no change in energy, and no significant changes in weight Respiratory: no cough, no wheezing, no shortness of breath, no hemoptysis Cardiovascular: no chest pain, no chest pressure, no palpitations, and no swelling GI: No nausea, vomiting, or diarrhea Endocrine: no fatigue, no weight gain, no weight loss, no polyuria, no polyphagia, and no polydipsia Neurologic: No headache, weakness, numbness, tingling, dizziness, syncope. PAST MEDICAL HISTORY Diagnosis Date Acute exacerbation of chronic obstructive airways disease (HCC) Alcohol dependence in remission ([facility]) 07/10/2015 Alcohol use disorder 08/27/2017 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 pancreatitis Alcoholic hepatitis 05/18/2012 Alcoholic liver disease ([facility]) 11/16/2013 Anemia Anxiety with depression Asthma Chronic hypoxemic respiratory failure ([facility]) COPD (chronic obstructive pulmonary disease) ([facility]) 05/25/2012 DDD (degenerative disc disease), cervical 09/03/2018 Diaphragmatic hernia without mention of obstruction or gangrene Diarrhea Diverticulosis GERD (gastroesophageal reflux disease) Hemorrhoids HLD (hyperlipidemia) HTN (hypertension) Human papillomavirus in conditions classified elsewhere and of unspecified site Irritable bowel syndrome with both constipation and diarrhea 08/27/2017 Lumbar disc disease with radiculopathy 06/18/2012 Other and unspecified alcohol dependence, unspecified drinking behavior Ovarian cyst, right 12/27/2012 Pancreatitis chronic 05/26/2011 Pneumonia of both lungs due to infectious organism 2018 Stage 3 severe COPD by GOLD classification ([facility]) 2018 Tobacco use greater than 30 years Unspecified hemorrhoids without mention of complication Urine, incontinence, stress female 11/24/2014 PAST SURGICAL HISTORY Procedure Laterality Date APPENDECTOMY at age 14 COLONOSCOPY 04/15/[address], [address] Paul Perez. COLONOSCOPY 01/23/2015 2-Tubular adenomas. Dr. Víctor Lopez. COLONOSCOPY 07/29/2017 normal COLONOSCOPY - DIAGNOSTIC 01/10/2021 10 yr interval EGD 10/03/[address] Paul Perez. EGD 07/29/2017 mild gastritis, otherwise normal EGD 01/10/2021 EGD EUS 12/05/2019 mild gastritis, chronic pancreatitis with PD stone L'SCOPE CHOLECYSTECTOMY 06/14/2021 TUBAL LIGATION HX 1986 ALLERGIES Hydrocodone, Penicillins, and Valium [Diazepam] MEDICATIONS amLODIPine (NORVASC) 2.5 mg tablet Take 1 tablet by mouth once daily. Cholecalciferol, Vitamin D3, 50 mcg (2,000 unit) cap Take 1 capsule by mouth once daily. pantoprazole DR (PROTONIX) 40 mg tablet Take 1 tablet by mouth once daily. lisinopril (ZESTRIL, PRINIVIL) 10 mg tablet Take 1 tablet by mouth once daily. simvastatin (ZOCOR) 20 mg tablet Take 1 tablet by mouth daily at bedtime. hydrOXYzine pamoate (VISTARIL) 25 mg capsule Take 1 capsule by mouth daily at bedtime. ziprasidone (GEODON) 20 mg capsule Patient unsure on dosage - prescribed by Dr. Talamantes. mirtazapine (REMERON) [address] mg tablet Prescribed by Dr. Talamantes. ARIPiprazole (ABILIFY) 5 mg tablet Take by mouth. busPIRone (BUSPAR) 10 mg tablet Take 1 tablet by mouth three times daily. nystatin (MYCOSTATIN) 100,000 unit/mL suspension Take 5 mL by mouth four times daily. 1tsp swish inmouth for several minutes, then swallow (or expectorate) 4 times daily until gone. albuterol HFA (VENTOLIN HFA) 90 mcg/actuation inhaler Inhale 2 Puffs as instructed four times dailyas needed. ucimiyusgcw-banxmubtk-wkqopqnx (TRELEGY ELLIPTA) 100-62.5-25 mcg inhalation powder DAILY gzfuts-dxtqqunr-rwznwex (CREON 24) 24,000-76,000 -120,000 unit delayed release capsule Take 3 capsules by mouth once daily. ondansetron orally disintegrating (ZOFRAN ODT) 4 mg disintegrating tablet Take 1 tablet by mouth every 6 hours as needed for nausea/vomiting. ferrous sulfate (SLOW FE) 140 mg (45 mg iron) TbER Take 1 tablet by mouth twice daily with meals. multivitamin tablet Take 1 tablet by mouth once daily. Ear Thermometer misc 1 Each once daily as needed. albuterol (PROVENTIL) 2.5 mg /3 mL (0.083 %) nebulizer solution Use 3 mL via nebulizer one time only for 1 dose. Use over 5-15minutes. OXYGEN, HOME THERAPY, Inhale as instructed as directed. Patient is on 2-3 liters COMPOUNDED PRESCRIPTION Pulse Oximetry COMPOUNDED PRESCRIPTION nebulizer supplies (tubing) FAMILY HISTORY Problem Relation Age of Onset Diabetes Mother Hypertension Mother Rheumatologic disease Mother other (lung cancer) Mother Lung Cancer Mother Diabetes Sister Cervical Cancer Sister X 2 Hypertension Brother Lung Cancer Brother Social History Tobacco Use Smoking status: Former Packs/day: 0.50 Years: 30.00 Pack years: 15.00 Types: Cigarettes Quit date: 10/19/2022 Years since quittin.1 Smokeless tobacco: Never Vaping Use Vaping Use: Never used Substance Use Topics Alcohol use: Not Currently Comment: Alcoholic - November 2020 - last drink Drug use: Not Currently Types: Marijuana Comment: rarely- last time used was Oct 2019 PHYSICAL EXAM BP 98/62 Pulse 108 Temp 36.7 C (98 F) (Temporal) Resp 16 Wt 58.5 kg (129 lb) LMP 05/29/2010 SpO2 96% BMI 22.85 kg/m General Appearance: well appearing, in no acute distress, alert Eyes: conjunctiva pink and moist, no icterus, sclera white, non-injected Lungs: Lungs clear to auscultation. No wheezing, rhonchi, rales. Heart: RRR without murmur, gallop, or rubs. No ectopy Health maintenance reviewed with patient: MAMMOGRAM due on 08/28/2021 ALPHA-1 ANTITRYPSIN DEFICIENCY SCREENING due on 04/08/2023 PAP TESTING due on 04/17/2023 HIV SCREENING due on 04/17/2023 SHINGRIX VACCINE(1 of 2) due on 04/17/2023 COVID-19 VACCINE(3 - Booster for Pfizer series) due on 04/17/2023 ANNUAL PCP TEAM CHRONIC DISEASE VISIT due on 11/25/2023 BP CONTROLLED (<130/80) due on 11/27/2023 COLORECTAL CANCER SCREENING due on 01/11/2024 HPV TESTING due on 07/05/2024 DIABETES SCREEN due on 11/26/2025 LIPID SCREEN due on 04/17/2027 PNEUMOCOCCAL(3 - PPSV23 if available, else PCV20) due on 2028 SPIROMETRY Completed INFLUENZA Completed HEPATITIS C SCREENING Completed DTAP,TDAP,TD Discontinued DATA REVIEWED: Most recent labs ASSESSMENT/PLAN: 1. Prediabetes - ICD9: 790.29, ICD10: R73.03 - discussed importance of decreasing soda intake and sugary foods. Will recheck in 3 months - HGB A1C - BASIC METABOLIC PNL - keep upcoming appointment with PCP Prescription instructions reviewed with patient as applicable. Potential red flag symptoms discussed with the patient. Reviewed appropriate action plan to take if red flag symptoms occur. Patient agreeable to treatment plan. Soila Easton APRN.CNP documented in this encounterL[facility]03-02-[facility]23 Miscellaneous Notes* Telephone Encounter - Mihaela Cheng RN - 11/27/2022 4:03 PM EST Images from the original note were not included. Pt contacted with provider's messages below. Pt had Neurology appt 11/26/22. Pt made appt to see Soila Easton CNP for 11/28/22 to discuss labs and medications per Dr. Elkins recommendation. Mihaela Cheng RN Result Notes Annmarie Elkins MD 11/27/2022 2:53 PM EST Patient is currently prediabetic as per her labs. The vitamin levels are still to be back Regards, Annmarie Elkins MD 11/27/2022 2:51 PM EST Please pursue consult with neuro as the xr of the back did not really show any major issues Regards, Annmarie Elkins MD documented in this encounterL[facility]03-02-2023 Miscellaneous Notes* Telephone Encounter - Mihaela Cheng RN - 11/27/2022 4:02 PM EST Pt notified of message below. Appt made with Soila Easton CNP for 11/28/22 as advised by PCP below. Mihaela Cheng RN * Telephone Encounter - Annmarie Elkins MD - 11/27/2022 3:05 PM EST Please call patient and let her know that her kidney numbers are not improving but actually coming up so I would like for her to be seen tomorrow by me or soila We need to order for a kidney ultrasound , go over medication list and * Telephone Encounter - Janene Grimm RN - 11/26/2022 3:24 PM EST Patient calls to report that she is not going to be able to find transportation for EMG scheduled in [place]. Patient is requesting to have EMG done at [facility]. Order faxed per patient request. Referral placed. EMG not cancelled yet incase unable to schedule with [facility]. Janene Grimm RN documented in this encounterLake [facility]03-01-2023 Instructions* Patient Instructions* Mariluz Verduzco PA-C - 11/26/2022 2:03 PM EST EMG of the upper and lower extremity to rule out neuropathy vs bulging disc Laboratory studies Follow up in 3 months Go to the emergency department should you experience any difficulty walking, difficulty breathing, changes in bowel or bladder patterns, or if your numbness continues to progress upwards. Please reach out with any questions. [facility] address: [address] [place] [address] Dr. [place] [phone] documented in this encounterLake [facility]03-01-[facility]23 History of Present illness Narrative* Mariluz Verduzco PA-C - 11/26/2022 1:16 PM EST Images from the original note were not included. Neurology Outpatient Clinic Date: November 26, 2022 Patient Name: Gracie Banuelos Referring physician: Annmarie Bullock [facility] [address] Consult requested for paresthesias by Dr. Elkins. Recommendations will be communicated via shared medical record or US mail. Primary physician: [place] [address] Reason for Evaluation: Paresthesias Subjective HPI Gracie Banuelos is a 57 year old right-handed female with history of lumbar disc disease, alcohol use disorder, HLD, HTN, tobacco use disorder, malnutrition, DDD, suicide attempt, and anxiety who presents for evaluation of paresthesias. Dr. Elkins is the referring physician and the PCP. Chart review: Admitted for ocular cellulitis last month sustained CHUY. Saw PCP yesterday, reported leg numbness and back numbness that is constant with some tingling on and off. No muscle weakness orback pain. Patient presents for evaluation of numbness and tingling to the bilateral lower extremities. Patient notes symptoms began in the toes, and then she noticed progressive numbness of the legs. She notesthat the numbness stops at the top of her legs, has not progressed further over the last week. Denies any weakness, bowel or bladder incontinence, saddle anesthesia, eliciting event including injury,vaccine. Patient does note that just prior to onset, she was admitted to the hospital, had a respiratory emergency and states that she may have injured her back as she was being strapped down to the bed to have CPAP placed on her. She denies any falls, direct injury to the back. She notes that after she was discharged home, she noted progressive back pain and numbness as she continued to move around. Patient does note history of chronic back pain, never followed through spine. She notes that the numbness is located to the lateral legs bilaterally, top of the foot and back of the calf bilaterally. She does have occasional tingling, that comes and goes, lasting a few minutes. She has never experienced the symptoms before. She denies any pain, weakness, no dropping of foot, no gait change, notes that she is able to empty her bladder fully. She does note that prior to onset of this, she didhave 1 incident of bowel incontinence on Delia, has not happened since. Patient denies any upper extremity symptoms including numbness, tingling, weakness. Does note occasional neck pain but attributes this to stress. Does have history of degenerative changes in the C-spine, last MRI was August 2018 showing mild to moderate canal stenosis and moderate to severe bilateral neural for minimal narrowing. No difficulty breathing other than her baseline COPD. Patient notes history of heavy alcohol use, notes 40 years of drinking upwards of 12 tall boys and 1 day. She also states that she smokes marijuana daily, smokes tobacco for the last 50 years, 1.5 packs a day. She does take a multivitamin, but does not take any B vitamins. Denies any history of MS, no family history of MS or any other neurologic disorder. She does not have any diet restrictions including vegan or vegetarianism. Of note, patient sustained CHUY during her admission, last creatinine was 1.38, GFR 44. Patient notes that she is trying to drink 60 ounces of water a day, but has difficulty with this as she feels bloated. This is being managed through primary care provider. Primary care has also obtained x-ray of the lumbar spine, this is in process. Labs/Imaging B12- WNL TSH- WNL Syphillis- negative DALLAS- negative CRP- negative ESR- negative RF- negative IGG- WNL Renal function: creatinine of 1.38, GFR 44 MRI cervical spine 09/23/18 IMPRESSION: Degenerative change in the cervical spine greater at C5-6 with mild-moderate canal stenosis and moderate-severe bilateral neural foraminal narrowing. Medications: Current Outpatient Medications Medication Sig Dispense Refill amLODIPine (NORVASC) 2.5 mg tablet Take 1 tablet by mouth once daily. 30 tablet 5 Cholecalciferol, Vitamin D3, 50 mcg (2,000 unit) cap Take 1 capsule by mouth once daily. [address] (PROTONIX) 40 mg tablet Take 1 tablet by mouth once daily. 90 tablet 2 nystatin (MYCOSTATIN) 100,000 unit/mL suspension Take 5 mL by mouth four times daily. 1tsp swish inmouth for several minutes, then swallow (or expectorate) 4 times daily until gone. 200 mL 0 albuterol HFA (VENTOLIN HFA) 90 mcg/actuation inhaler Inhale 2 Puffs as instructed four times dailyas needed. 54 g 4 lisinopril (ZESTRIL, PRINIVIL) 10 mg tablet Take 1 tablet by mouth once daily. 30 tablet 11 sofhilowlou-nlljypyer-ayxberqq (TRELEGY ELLIPTA) 100-62.5-25 mcg inhalation powder DAILY wztdre-dpyxrzkg-yaauwce (CREON 24) 24,000-76,000 -120,000 unit delayed release capsule Take 3 capsules by mouth once daily. 270 capsule 2 simvastatin (ZOCOR) 20 mg tablet Take 1 tablet by mouth daily at bedtime. 30 tablet 11 hydrOXYzine pamoate (VISTARIL) 25 mg capsule Take 1 capsule by mouth daily at bedtime. 30 capsule 11 ondansetron orally disintegrating (ZOFRAN ODT) 4 mg disintegrating tablet Take 1 tablet by mouth every 6 hours as needed for nausea/vomiting. 30 tablet 1 ferrous sulfate (SLOW FE) 140 mg (45 mg iron) TbER Take 1 tablet by mouth twice daily with meals. 60 tablet 3 ziprasidone (GEODON) 20 mg capsule Patient unsure on dosage - prescribed by Dr. Talamantes. mirtazapine (REMERON) [address] tablet Prescribed by Dr. Talamantes. multivitamin tablet Take 1 tablet by mouth once daily. 30 tablet 11 ARIPiprazole (ABILIFY) 5 mg tablet Take by mouth. busPIRone (BUSPAR) 10 mg tablet Take 1 tablet by mouth three times daily. 90 tablet 1 Ear Thermometer misc 1 Each once daily as needed. 1 Each 0 OXYGEN, HOME THERAPY, Inhale as instructed as directed. Patient is on 2-3 liters COMPOUNDED PRESCRIPTION Pulse Oximetry 1 Device 0 COMPOUNDED PRESCRIPTION nebulizer supplies (tubing) 1 Each 5 albuterol (PROVENTIL) 2.5 mg /3 mL (0.083 %) nebulizer solution Use 3 mL via nebulizer one time only for 1 dose. Use over 5-15minutes. 20 Vial 3 No current facility-administered medications for this visit. ROS ROS: Her ROS was positive for that mentioned in the HPI. Otherwise a 10-point ROS was completed andwas negative. ALLERGIES Allergen Reactions Hydrocodone Itching Penicillins Other: See Comments hives Valium [Diazepam] Other: See Comments cross reaction with alcohol addiction Past Medical History: PAST MEDICAL HISTORY Diagnosis Date Acute exacerbation of chronic obstructive airways disease (HCC) Alcohol dependence in remission (HCC) 07/10/2015 Alcohol use disorder 08/27/2017 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 pancreatitis Alcoholic hepatitis 05/18/2012 Alcoholic liver disease (HCC) 11/16/2013 Anemia Anxiety with depression Asthma Chronic hypoxemic respiratory failure (HCC) COPD (chronic obstructive pulmonary disease) (HCC) 05/25/2012 DDD (degenerative disc disease), cervical 09/03/2018 Diaphragmatic hernia without mention of obstruction or gangrene Diarrhea Diverticulosis GERD (gastroesophageal reflux disease) Hemorrhoids HLD (hyperlipidemia) HTN (hypertension) Human papillomavirus in conditions classified elsewhere and of unspecified site Irritable bowel syndrome with both constipation and diarrhea 08/27/2017 Lumbar disc disease with radiculopathy 06/18/2012 Other and unspecified alcohol dependence, unspecified drinking behavior Ovarian cyst, right 12/27/2012 Pancreatitis chronic 05/26/2011 Pneumonia of both lungs due to infectious organism 2018 Stage 3 severe COPD by GOLD classification ([facility]) 2018 Tobacco use greater than 30 years Unspecified hemorrhoids without mention of complication Urine, incontinence, stress female 11/24/2014 Family History: FAMILY HISTORY Problem Relation Age of Onset Diabetes Mother Hypertension Mother Rheumatologic disease Mother other (lung cancer) Mother Lung Cancer Mother Diabetes Sister Cervical Cancer Sister X 2 Hypertension Brother Lung Cancer Brother Also includes: None. Social History: Social History Tobacco Use Smoking status: Former Packs/day: 0.50 Years: 30.00 Pack years: 15.00 Types: Cigarettes Quit date: 10/19/2022 Years since quittin.1 Smokeless tobacco: Never Vaping Use Vaping Use: Never used Substance Use Topics Alcohol use: Not Currently Comment: Alcoholic - November 2020 - last drink Drug use: Not Currently Types: Marijuana Comment: rarely- last time used was Oct 2019 Tobacco use, marijuana use, 40-year history of alcohol abuse Objective 11/26/22 1313 BP: 96/63 Pulse: 111 Resp: 24 Temp: 37.1 C (98.8 F) TempSrc: Left Tympanic SpO2: 96% Weight: 58.7 kg (129 lb 6.4 oz) Physical Examination General Appearance: Well appearing, alert, in no acute distress, well-hydrated, well nourished. Head: Normocephalic Pulm: Breathing comfortably Neck: Supple, full range of motion Psych: Cooperative, appropriate affect Neurological Examination: Mental Status: Alert and Oriented to Place, Person, Time and Situation and Patient follows commands.. Language: Is intact to Comprehension, Fluency and Repetition Cranial Nerves: CNII: Visual acuity normal, visual sherman full to confrontation CNIII, IV, : Pupils equal, round and reactive to light, full extraoccular movements, without nystagmus CN V: Facial sensation intact bilaterally to fine touch CN VII: Facial muscles symmetric and strong CN VIII: Hears finger rub well bilaterally CN IX: Gag Reflex not examined CN X: Palate elevates symmetrically CN XI: Full strength shoulder shrug bilaterally CN XII: Tongue protrusion full and midline Motor Exam: Tone - Normal Tone noted in all extremities Bulk - Normal bulk noted in all muscles tested. Inspection - Normal, no fasciculations. Mild tremor of the bilateral hands, patient notes that she does not have a tremor at home, attributes to anxiety Power: MUSCLES Upper Extremity RIGHT LEFT Deltoid / 5/5 Biceps /01/30 Triceps / 5/ Wrist Extension 01/30 5/ Wrist Flexion 01/30/ Finger Flexion 01/30/ Finger Extension 01/30/ Finger Abd 01/30/ Finger Add 01/30 01/30 MUSCLES Lower Extremity RIGHT LEFT Hip Flexion 01/30 5/ Hip Extension 01/30 5 BiFem (Knee Flex) 01/30 5 Quads (Knee Ext) 01/30 01/30 Gastroc (Plantflx) 01/30 01/30 TibAnt (Dorsiflx) 01/30 5 FlxHLong (Toe Flex) 01/30 5 ExtHLong (Toe Ext) 01/30 5 Sensory Examination Right lower extremity: Temperature is absent to the lateral leg and lateral foot, mildly decreased to the medial leg and medial foot. Sharp is diminished in same pattern. Decreased vibration throughout, improving moving proximally. Intact proprioception. Left lower extremity: Temperature and pinprick absent to top of foot, decreased to the back of the thigh, lateral thigh. Vibration decreased throughout, improving moving proximally. Intact proprioception. BUE: Decreasing temp and sharp distally, intact at wrist. Decreased vibration distally, intact at MCP. Intact propioception Reflexes Right Left Bicep 2/4 2/4 Tricep 2/4 2/4 BrRad 2/4 2/4 Knee 1/4 1/4 Ankle 1/ 1/ Loving Response Negative Negative Coordination: finger-to- nose-finger intact bilaterally and iogz-kk-uanz intact bilaterally. Gait: Patient's gait is normal DATA REVIEWED Actual films/image/tracing reviewed and summarized as follows: Laboratory studies Old records reviewed and summarized as follows: Internal medicine Assessment/Plan Assessment & Plan: Gracie Banuelos is a 57 year old right-handed female with a history of lumbar disc disease, alcohol use disorder, HLD, HTN, tobacco use disorder, malnutrition, DDD, suicide attempt, and anxiety. Her examination demonstrates patchy and diminished sensory exam including both small and large fibers in the lower extremity as noted above. Upper extremity with glove like distribution of both small and large fiber disease. Patient with 3+ weeks of gradually worsening numbness in the lower extremities with occasional tingling. No weakness, no bowel or bladder issues, no saddle anesthesia. Patient with history of lumbar disc disease, primary care did obtain x-ray but this is pending at this time. Exam is consistent with neuropathy findings, but patient reports numbness in L5 and S1 distribution. Patient with full strength on exam, normal gait, normal lower extremity tone, no red flag signs or symptoms of cord compression or severe cervical stenosis. No emergent imaging warranted at this time. Patient with historyof chronic alcohol use for 40 years as well as lumbar disc disease and cervical disc disease. We will obtain EMG of the upper and lower extremity to evaluate for any spinal cause versus isolated nerve disease versus neuropathy. Additionally, will obtain additional laboratory studies including B1, B6 and A1c. Patient with no pain, will refrain from medication at this time. Discussed red flag signs and symptoms that would warrant emergent evaluation in the emergency department, patient agrees and understands this. Patient agreeable to treatment plan of care at this time, all questions have been answered. Patient to follow-up in 3 months or sooner should any symptoms change or worsen. Gracie was seen today for new patient. Diagnoses and all orders for this visit: Neuropathy - EMG(NEURO/NI); Future - VITAMIN B1 (THIAMINE), WHOLE BLOOD; Future - VITAMIN B5(PANTOTHENIC AID) BIOASSAY; Future - HGB A1C; Future Numbness and tingling of both lower extremities - CONSULT TO NEUROLOGY - EMG(NEURO/NI); Future - VITAMIN B1 (THIAMINE), WHOLE BLOOD; Future - VITAMIN B5(PANTOTHENIC AID) BIOASSAY; Future - HGB A1C; Future Numbness and tingling of both feet - EMG(NEURO/NI); Future - VITAMIN B1 (THIAMINE), WHOLE BLOOD; Future - VITAMIN B5(PANTOTHENIC AID) BIOASSAY; Future - HGB A1C; Future Claustrophobia She should return to see me in 3 months. I spent a total of 55 minutes on the date of the service which included preparing to see the patient, gjka-lu-[id number] patient care, completing clinical documentation, obtaining and/or reviewing separately obtained history, performing a medically appropriate examination, counseling and educating the pat ient/family/caregiver, and ordering medications, tests, or procedures. Mariluz Verduzco PA-C [facility] This document has been created with the use of voice recognition technology. It may contain inaccuracies: (e.g. misspellings, inaccurate syntax or word sense) that have escaped review. documented in this encounterLake County [facility]-28-[facility] History of Present illness Narrative* Annmarie Elkins MD - 11/25/2022 10:19 AM EST Reason for Visit Patient presents with: Same Day Appointment: tingling and numbness in legs and back and abdomen Gracie Banuelos is a 57 year old female who presents here today for Above Complaints.. Health Maintenance MAMMOGRAM HPI This is a 57-year-old gentleman with a past medical history of mixed hyperlipidemia, hypertension, alcohol use in remission, tobacco use in remission, major depression, COPD, alcohol induced pancreatitis on use of Creon regularly. Was in admitted for ocular cellulitis last month at which time she hernandez d CHUY. Here for follow up and new concerns. Here today as she is concerned about her legs being numb, also numb in the thighs and back. It is constant. Some tingling on and off through out the day, night time it scares her because the pain andthe tingling causes more anxiety. No muscle weakness reported at this time, denies back pain. She is extremely anxious about her kidneys and thinks the above symptoms are from her chuy, wanted to see a specialist. We reassured her there was no renal emergency that her chuy may improve some other hodges still it is in the range of 48. Advice to drink a lot of water. She is back on lisinopril CKD: Stage 3, recent labs reviewed, shows GFR is stable, not significantly changed from previous labs. Discussed the importance of staying off the NSAIDs naproxen, motrin, brufen, aleve etc and contrast., adequate hydration Keeping blood pressure under control. No problem-specific Assessment & Plan notes found for this encounter. PAST MEDICAL HISTORY Diagnosis Date Acute exacerbation of chronic obstructive airways disease (HCC) Alcohol dependence in remission ([facility]) 07/10/2015 Alcohol use disorder 08/27/2017 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 pancreatitis Alcoholic hepatitis 05/18/2012 Alcoholic liver disease (HCC) 11/16/2013 Anemia Anxiety with depression Asthma Chronic hypoxemic respiratory failure (HCC) COPD (chronic obstructive pulmonary disease) (HCC) 05/25/2012 DDD (degenerative disc disease), cervical 09/03/2018 Diaphragmatic hernia without mention of obstruction or gangrene Diarrhea Diverticulosis GERD (gastroesophageal reflux disease) Hemorrhoids HLD (hyperlipidemia) HTN (hypertension) Human papillomavirus in conditions classified elsewhere and of unspecified site Irritable bowel syndrome with both constipation and diarrhea 08/27/2017 Lumbar disc disease with radiculopathy 06/18/2012 Other and unspecified alcohol dependence, unspecified drinking behavior Ovarian cyst, right 12/27/2012 Pancreatitis chronic 05/26/2011 Pneumonia of both lungs due to infectious organism 2017 Stage 3 severe COPD by GOLD classification ([facility]) 2018 Tobacco use greater than 30 years Unspecified hemorrhoids without mention of complication Urine, incontinence, stress female 11/24/2014 PAST SURGICAL HISTORY Procedure Laterality Date APPENDECTOMY at age 14 COLONOSCOPY 04/15/[address], [address] Paul Perez. COLONOSCOPY 01/23/2015 2-Tubular adenomas. Dr. Víctor Lopez. COLONOSCOPY 07/29/2017 normal COLONOSCOPY - DIAGNOSTIC 01/10/2021 10 yr interval EGD 10/03/[address] Paul Perez. EGD 07/29/2017 mild gastritis, otherwise normal EGD 01/10/2021 EGD EUS 12/05/2019 mild gastritis, chronic pancreatitis with PD stone L'SCOPE CHOLECYSTECTOMY 06/14/2021 TUBAL LIGATION HX 1987 FAMILY HISTORY Problem Relation Age of Onset Diabetes Mother Hypertension Mother Rheumatologic disease Mother other (lung cancer) Mother Lung Cancer Mother Diabetes Sister Cervical Cancer Sister X 2 Hypertension Brother Lung Cancer Brother Social History Tobacco Use Smoking status: Former Packs/day: 0.50 Years: 30.00 Pack years: 15.00 Types: Cigarettes Quit date: 10/19/2022 Years since quittin.1 Smokeless tobacco: Never Vaping Use Vaping Use: Never used Substance Use Topics Alcohol use: Not Currently Comment: Alcoholic - November 2020 - last drink Drug use: Not Currently Types: Marijuana Comment: rarely- last time used was Oct 2019 Past medical history, appointments, medications, allergies reviewed. Pertinent Lab/Diagnostic Studies are reviewed and discussed today Current Outpatient Medications: amLODIPine (NORVASC) 2.5 mg tablet Cholecalciferol, Vitamin D3, 50 mcg (2,000 unit) cap pantoprazole DR (PROTONIX) 40 mg tablet nystatin (MYCOSTATIN) 100,000 unit/mL suspension albuterol HFA (VENTOLIN HFA) 90 mcg/actuation inhaler lisinopril (ZESTRIL, PRINIVIL) 10 mg tablet agdgrycewer-zzpoxhqse-oadyejzs (TRELEGY ELLIPTA) 100-62.5-25 mcg inhalation powder wjllqg-hfgchsdh-hvbwuyh (CREON 24) 24,000-76,000 -120,000 unit delayed release capsule simvastatin (ZOCOR) 20 mg tablet hydrOXYzine pamoate (VISTARIL) 25 mg capsule ondansetron orally disintegrating (ZOFRAN ODT) 4 mg disintegrating tablet ferrous sulfate (SLOW FE) 140 mg (45 mg iron) TbER ziprasidone (GEODON) 20 mg capsule mirtazapine (REMERON) 45 mg tablet multivitamin tablet ARIPiprazole (ABILIFY) 5 mg tablet busPIRone (BUSPAR) 10 mg tablet Ear Thermometer misc albuterol (PROVENTIL) 2.5 mg /3 mL (0.083 %) nebulizer solution OXYGEN, HOME THERAPY, COMPOUNDED PRESCRIPTION COMPOUNDED PRESCRIPTION Review of Systems CONSTITUTIONAL: No fevers, chills night sweats, unintended weight loss CARDIOVASCULAR: No chest pain, dyspnea, palpitations, orthopnea, PND, ankle edema. PULM: No dyspnea, unexplained cough. GI: No dysphagia/odynophagia, problematic reflux, constipation, diarrhea, changes in stool habits, hematochezia, melena. : No new urinary complaints, including dysuria, gross hematuria or pyuria. NEURO: No new balance problems, peripheral weakness/paresthesias or numbness of concern. Physical Exam BP 132/60 (BP Site: Left Arm, BP Position: Sitting, BP Cuff Size: Regular Adult) Pulse 111 Temp36.4 C (97.5 F) Resp 16 Ht 160 cm (5' 3) Wt 59 kg (130 lb) LMP 05/29/2010 SpO2 97% BMI23.03 kg/m General appearance: Well appearing, alert, in no acute distress, well nourished. Skin: Skin color, texture, turgor normal, no suspicious rashes or lesions Head: Normocephalic, no masses, lesions, tenderness or abnormalities Eyes: Anicteric sclera. Pupils are equally round and reactive to light. Extraocular movements are intact. Lungs: Lungs clear to auscultation. No wheezing, rhonchi, rales Heart: RRR without murmur, gallop, or rubs. Extremities: No deformities, edema, skin discoloration, clubbing or cyanosis. Good capillary refill. Neuro: decreased feeling in the b/l lower extremities to feeling with cotton, as compared to the other side. Similar finding to touch and pain.. her plantar was negative for babinskys test Strength with the hip and knee flexors and extensor were grossly normal ASSESSMENT/PLAN: 1. Numbness and tingling of both lower extremities - ICD9: 782.0, ICD10: R20.0, R20.2 (primary diagnosis) Unclear reason, eval as beloe - VITAMIN B12 BLOOD - XR LUMBAR GENERAL 3V AP/LAT/L5-S1 - CONSULT TO NEUROLOGY 2. CHUY (acute kidney injury) (HCC) - ICD9: 584.9, ICD10: N17.9 - RENAL FUNCTION PANEL 3. Essential hypertension, benign - ICD9: 401.1, ICD10: I10 - good control - Recommended regular aerobic exercise. - Recommend home blood pressure monitoring, to bring results in on next visit - Goal of BP <130/80 4. Hyperlipidemia, unspecified hyperlipidemia type - ICD9: 272.4, ICD10: E78.5 - good control - Continue current medication. Annmarie Elkins MD documented in this encounterLake [facility]-28-[facility] Nurse Note* Eda Moore LPN - 11/25/2022 9:53 AM EST and had put a hold on eye surgery for now. Patient is going to main [facility] on December 03 for possible surgery documented in this encounterLake County [facility]02-15-2023 Miscellaneous Notes* Telephone Encounter - Eileen Chavez Ma - 11/12/2022 1:27 PM EST Patient notified. * Telephone Encounter - Eileen Chavez Ma - 11/12/2022 1:25 PM EST ----- Message from Annmarie Elkins MD sent at 11/12/2022 12:50 PM EST ----- Kidney numbers continue to remain the same. If she is not drinking too bottles of water or 64 ounces of water every day I would like her to stop doing that. At this point I would think that she had some trouble with her kidneys and in now what ever damage seems to be the same its not really worsening. documented in this encounterLake [facility]02-14-2023 History of Present illness Narrative* Sonja Victor RT(R) - 11/11/2022 4:50 PM EST Radiology Service Progress Note PATIENT NAME: Gracie Banuelos DATE OF SERVICE: November 11, 2022 TIME: 4:49 PM PATIENT IDENTITY VERIFICATION COMPLETED USING TWO (2) IDENTIFIERS: Name and Date of confirmedby patient verbally. FALL SCREENING: Has the patient had 2 falls in the last year or 1 fall with injury or currently using an Ambulatory Assistive Device (Walker, Cane, Wheelchair, Crutches, etc.)? No PATIENT GENDER DATA: Female. status: : No status: NO. PATIENT RELEVANT IMPLANT DATA REVIEWED: Yes RADIOLOGY DEPARTMENT: General X-ray: Exam(s) Completed: Chest X-Ray PERIPHERAL IV DATA: Not applicable SIGNED BY: RT Channing(R) November 11, 2022 4:49 PM documented in this encounterLake County [facility]02-14-2023 History of Present illness Narrative* Annmarie Elkins MD - 11/11/2022 4:16 PM EST Reason for Visit Patient presents with: Hospital F/U: RSV d/c'd 10/30/21 Gracie Banuelos is a 57 year old female who presents here today for Above Complaints. Health Maintenance MAMMOGRAM HPI Here with her \\sister, This is a 57-year-old gentleman with a past medical history of mixed hyperlipidemia, hypertension, alcohol use in remission, tobacco use in remission, major depression, COPD, alcohol induced pancreatitis on use of Creon regularly. Was admitted with ocular cellulitis at [facility] and was transferred to [facility] and for oculoplastics. No interventions were made by occulopastics as she got better on abx on her own In the [facility] she had an episode of respiratory distress which was thought to be on hindsight from Ativan and BuSpar. They did think she had some issue with the lung including a spot on it and clots but on rechecking the images by Dr. Sebastian and his team they said it was not blood clot. She is on baseline oxygen at home for the past 10 years and uses oxygen whenever she exerts herself like doing her work at home. She used to smoke but finally quit smoking few weeks ago with ocular cellulitis. During her hospital stay she also had acute kidney injury and when she was following up a couple weeks ago her kidney numbers especially the creatinine was still elevated at 1.2 but GFR was 5 6. Last visit she had diarrhea but today she notes diarrhea from abx slowly resolved and she is back on using her creon which is also helped her. She does have pancreatic issues from alcohol and malabsorption and need for enzymes Lisinopril was held in the ER and hospital stay. She is still holding it but her blood pressure is normal and in fact on the lower side She is coming up for cataract surgery surgery next month. She drinks a few beers on and off, no alcohol for a couple months , she has quit smoking after thisepisode. she stopped drinking pop and drinking a lot more of water. No problem-specific Assessment & Plan notes found for this encounter. PAST MEDICAL HISTORY Diagnosis Date Acute exacerbation of chronic obstructive airways disease (HCC) Alcohol dependence in remission (HCC) 07/10/2015 Alcohol use disorder 08/27/2017 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 pancreatitis Alcoholic hepatitis 05/18/2012 Alcoholic liver disease (HCC) 11/16/2013 Anemia Anxiety with depression Asthma Chronic hypoxemic respiratory failure (HCC) COPD (chronic obstructive pulmonary disease) (HCC) 05/25/2012 DDD (degenerative disc disease), cervical 09/03/2018 Diaphragmatic hernia without mention of obstruction or gangrene Diarrhea Diverticulosis GERD (gastroesophageal reflux disease) Hemorrhoids HLD (hyperlipidemia) HTN (hypertension) Human papillomavirus in conditions classified elsewhere and of unspecified site Irritable bowel syndrome with both constipation and diarrhea 08/27/2017 Lumbar disc disease with radiculopathy 06/18/2012 Other and unspecified alcohol dependence, unspecified drinking behavior Ovarian cyst, right 12/27/2012 Pancreatitis chronic 05/26/2011 Pneumonia of both lungs due to infectious organism 2018 Stage 3 severe COPD by GOLD classification ([facility]) 2018 Tobacco use greater than 30 years Unspecified hemorrhoids without mention of complication Urine, incontinence, stress female 11/24/2014 PAST SURGICAL HISTORY Procedure Laterality Date APPENDECTOMY at age 14 COLONOSCOPY 04/15/[address], [address] Paul Perez. COLONOSCOPY 01/23/2015 2-Tubular adenomas. Dr. Víctor Lopez. COLONOSCOPY 07/29/2017 normal COLONOSCOPY - DIAGNOSTIC 01/10/2021 10 yr interval EGD 10/03/[address] Paul Perez. EGD 07/29/2017 mild gastritis, otherwise normal EGD 01/10/2021 EGD EUS 12/05/2019 mild gastritis, chronic pancreatitis with PD stone L'SCOPE CHOLECYSTECTOMY 06/14/2021 TUBAL LIGATION HX 1987 FAMILY HISTORY Problem Relation Age of Onset Diabetes Mother Hypertension Mother Rheumatologic disease Mother other (lung cancer) Mother Lung Cancer Mother Diabetes Sister Cervical Cancer Sister X 2 Hypertension Brother Lung Cancer Brother Social History Tobacco Use Smoking status: Former Packs/day: 0.50 Years: 30.00 Pack years: 15.00 Types: Cigarettes Quit date: 10/19/2022 Years since quittin.0 Smokeless tobacco: Never Vaping Use Vaping Use: Never used Substance Use Topics Alcohol use: Not Currently Comment: Alcoholic - November 2020 - last drink Drug use: Not Currently Types: Marijuana Comment: rarely- last time used was Oct 2019 Past medical history, appointments, medications, allergies reviewed. Pertinent Lab/Diagnostic Studies are reviewed and discussed today Current Outpatient Medications: amLODIPine (NORVASC) 2.5 mg tablet Cholecalciferol, Vitamin D3, 50 mcg (2,000 unit) cap pantoprazole DR (PROTONIX) 40 mg tablet nystatin (MYCOSTATIN) 100,000 unit/mL suspension albuterol HFA (VENTOLIN HFA) 90 mcg/actuation inhaler lisinopril (ZESTRIL, PRINIVIL) 10 mg tablet acnbwxpcnwa-jfleoblzq-baufpmqs (TRELEGY ELLIPTA) 100-62.5-25 mcg inhalation powder gwupex-rocgyhje-jpcplnw (CREON 24) 24,000-76,000 -120,000 unit delayed release capsule simvastatin (ZOCOR) 20 mg tablet hydrOXYzine pamoate (VISTARIL) 25 mg capsule ondansetron orally disintegrating (ZOFRAN ODT) 4 mg disintegrating tablet ferrous sulfate (SLOW FE) 140 mg (45 mg iron) TbER ziprasidone (GEODON) 20 mg capsule mirtazapine (REMERON) 45 mg tablet multivitamin tablet ARIPiprazole (ABILIFY) 5 mg tablet busPIRone (BUSPAR) 10 mg tablet Ear Thermometer misc albuterol (PROVENTIL) 2.5 mg /3 mL (0.083 %) nebulizer solution OXYGEN, HOME THERAPY, COMPOUNDED PRESCRIPTION COMPOUNDED PRESCRIPTION Review of Systems CONSTITUTIONAL: No fevers, chills night sweats, unintended weight loss CARDIOVASCULAR: No chest pain, dyspnea, palpitations, orthopnea, PND, ankle edema. PULM: No dyspnea, unexplained cough. GI: No dysphagia/odynophagia, problematic reflux, constipation, diarrhea, changes in stool habits, hematochezia, melena. : No new urinary complaints, including dysuria, gross hematuria or pyuria. NEURO: No new balance problems, peripheral weakness/paresthesias or numbness of concern. Physical Exam BP 108/56 (BP Site: Left Arm, BP Position: Sitting, BP Cuff Size: Regular Adult) Pulse 96 Temp 36.5 C (97.7 F) Resp 12 Ht 160 cm (5' 3) Wt 59 kg (130 lb) LMP 05/29/2010 SpO2 99% BMI 23.03 kg/m General appearance: Well appearing, alert, in no acute distress, well nourished. Skin: Skin color, texture, turgor normal, no suspicious rashes or lesions Head: Normocephalic, no masses, lesions, tenderness or abnormalities Eyes: Anicteric sclera. Pupils are equally round and reactive to light. Extraocular movements are intact. Lungs: Lungs clear to auscultation. No wheezing, rhonchi, rales Heart: RRR without murmur, gallop, or rubs. Extremities: No deformities, edema, skin discoloration, clubbing or cyanosis. Good capillary refill. ASSESSMENT/PLAN: 1. CHUY (acute kidney injury) (HCC) - ICD9: 584.9, ICD10: N17.9 (primary diagnosis) - BASIC METABOLIC PNL 2. Chronic obstructive pulmonary disease, unspecified COPD type (HCC) - ICD9: 496, ICD10: J44.9 - XR CHEST 2V FRONTAL/LAT 3. Alcohol use disorder, moderate, dependence (HCC) - ICD9: 303.90, ICD10: F10.20 4. Essential hypertension, benign - ICD9: 401.1, ICD10: I10 Holding the lisinopril. Once her BMP today is back we will decide whether she can get back on it. Her blood pressure does on the lower side and is normal. She has quit smoking and drinking and lost little bit of weight. 5. Hyperlipidemia, unspecified hyperlipidemia type - ICD9: 272.4, ICD10: E78.5 Cont the statin use 6. Tobacco use disorder - ICD9: 305.1, ICD10: F17.200 - Cessation encouraged. - Physiologic and physical aspects of tobacco addiction as well as strategies for quitting were discussed. - Counseling was given focusing on the harmful effects of this addiction especially given the patient's medical condition(s) which will be worsened because of the chemicals in tobacco. 7. Reactive depression - ICD9: 300.4, ICD10: F32.9 Cont the geodon as needed 8. Moderate episode of recurrent major depressive disorder (HCC) - ICD9: 296.32, ICD10: F33.1 Cont all the medication she is currently taking 9. 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 chronic pancreatitis (HCC) - ICD9: 577.1, ICD10: K86.0 Annmarie Elkins MD documented in this encounterLake [facility]02-09-2023 NoteTeaching Physician Note: I have seen and examined the patient and supervised the procedures performed. I personally obtained the ochoa portions of the history and the ophthalmologic exam. I reviewed the resident's documentation and discussed the patient's history and examination with the resident. I agree with the resident's decision making as documented in the resident's note. Yumiko Guerin [facility] Bonilla [facility] November 06, 2022 3:03pm Note Date/Time November 06, 2022 9 :43[facility] Medical Records Department [address] [place] [address] Progress Note - Hospitalist 11/06/22939 MR#: [id number] Acct: [id number] Name: GRACIE BANUELOS Rep #:[id number] : 1965 57 From: Anastacia Bonilla MD [facility] Status:ADM IN Location: [place] [address] Reason for Visit Reason for Visit: Diagnoses Chronic obstructive pulmonary disease, unspecified (11/01/22) Acute kidney failure, unspecified (11/01/22) Nausea with vomiting, unspecified (11/01/22) Diarrhea, unspecified (11/01/22) Subjective Subjective Patient seen and examined. She feels much better today. Her breathing is much better and she is on 2L of oxygen She had an uneventful night and review of systems is otherwise negative. She does remain tachycardic with HR being 111 at time of review; respiratory rate was also 23. Objective Data Objective Data Vital Signs: Vital Signs Temp Pulse Resp BP Pulse Ox O2 Del Method O2 Flow Rate 99.1 F 111 H 23 H 157/94 H 95 Nasal Cannula 2 11/06/22 09:00 11/06/22 09:00 11/06/22 09:00 11/06/22 09:00 11/06/22 09:00 11/06/22 09:00 11/06/22 09:00 FiO2 30 11/05/22 07:21 Oxygen Flow Rate (L/min) 2 Oxygen Delivery Method Nasal Cannula Weight: 139 lb 5.314 oz Body Mass Index (BMI) 23.7 Intake & Output: Intake and Output for Last 24 Hours 11/04/22 11/05/22 11/06/22 23:59 23:59 23:59 Intake Total 2337.25 / 2337.25 2415.00 / 2415.00 50 / 50 Output Total 1900 / 1900 2600 / 2600 725 / 725 Balance 437.25 / 437.25 -185.00 / -185.00 -675 / -675 Lab / Micro Data Result Diagrams: 11/06/22 03:27 11/06/22 03:27 Labs: Laboratory Results - last 24 hr 11/02/22 09:15: Stool pH 6.0 L, Stool Calprotectin 118 11/06/22 03:27: WBC 15.3 H, RBC 3.26 L, Hgb 8.8 L, Hct 27.0 L, MCV 82.8, MCH 27.0, MCHC 32.6, RDW Std Deviation 47.2 H, RDW Coeff of Min 15.4 H, Plt Count 358, MPV 9.8, Immature Gran % (Auto) 2.800 H, Neut % (Auto) 74.3 H, Lymph % (Auto) 11.1 L, Kenedy % (Auto) 9.9, Eos % (Auto) 1.6, Baso % (Auto) 0.3, Absolute Neuts (auto) 11.3 H, Absolute Lymphs (auto) 1.69, Nucleated RBC % 0, Diff Path Review May foll, Anisocytosis 1+ 11/06/22 03:27: Sodium 140, Potassium 3.9, Chloride 105, Carbon Dioxide 29.0, Anion Gap 6, BUN 22 H, Creatinine 1.24 H, Estim Creat Clear Calc 40.41, Est GFR (MDRD) Af Amer 57 L, Est GFR (MDRD) Non-Af 47 L, BUN/Creatinine Ratio 17.7, Glucose 141 H, Calcium 8.8 Micro: Microbiology 11/04/22 12:31 Blood Culture (Wb) - Right Hand Blood Culture - Preliminary 11/04/22 12:08 Blood Culture (Wb) - Left Hand Blood Culture - Preliminary 11/03/22 07:40 Mucosa - Nasopharyngeal Respiratory Panel (PCR) - Final 11/02/22 09:15 Stool Stool Lactoferrin - Final 11/02/22 09:15 Stool Stool Occult Blood (AGNIESZKA) - Final Radiography Diagnostic Testing: Radiology Impression Venous Doppler Study 11/05/22 08:33 Interpretation Summary No evidence for acute deep venous thrombosis bilateral lower extremities with patent and compressible bilateral great saphenous veins. Pulsatile venous flow was noted bilaterally consistent with proximal venous hypertension or obstruction. Clinical correlation would be appropriate. Ordering Physician: Gonzalo Sebastian Referring Physician: Soila Easton Performed By: Som Mcneil RVT Rhythm Strip Rhythm Strip: Sinus Rhythm Rate: 99 Ectopy: None Physical Exam Const alert, oriented x3 and no apparent distress HEENT head/scalp atraumatic, moist oral mucous membranes and oropharynx normal Head and Scalp: normocephalic Mouth: oral and palatal mucosa normal Eyes PERRL, EOMs intact bilaterally and conjunctivae normal Neck no lymphadenopathy and supple Resp Resp Narrative: diminished breath sounds bibasally, no wheezes or crackles. on 2L of oxygen by nasal canula. Cardio regular rate, regular rhythm, S1 normal heart sound and S2 normal heart sound GI normal to inspection, nondistended, normoactive bowel sounds, soft to palpation,non-tender and non-distended Extremity normal to inspection, full ROM and no clubbing, cyanosis or edema Neuro oriented x3, CN's II-XII intact bilaterally and moves all extremities Sensorium / Orientation: awake and alert Motor Exam: strength 5/5 throughout Psych affect normal Assessment & Plan Assessment/Plan (1) Nausea & vomiting: (2) Diarrhea: PLAN: Plan #Acute on chronic hypoxic respiratory failure * resolving. Now down to 2L of oxygen. * duplex of lower extremities was negative for PE. Heparin drip was therefore discontinued * she remains on IV vancomycin and zosyn. * blood cultures are negative. Respiratory panel negative * #Acute renal injury due to volume depletion due to acute diarrhea * Cr down to 1.24 today. * resolving * nephrology on board. Will monitor * #Acute diarrhea * C diff ruled out * on immodium. * stool studies were negative. * diarrhea resolved * #Community acquired pneumonia * now down to 2L of oxygen. * CXR showed evidence of pneumonia * CT of the chest done yesterday showed small left pleural effusion or left basilar infiltration and/or atelectasis with minimal right pleural effusion. * critical care on board. * on IV vancomycin and zosyn. will dc antibiotics today since all cultures are negative * #sepsis * WBC is now down to 22 today from 27. * CT of the chest as above. CT of the abdomen and pelvis showed no evidence of infection. * Repeat blood cultures negative * On IV vancomycin and Zosyn. will dc today * #Hyperkalemia:resolved. #COPD: * breathing treatment with bronchodilators. * Titrate oxygen to maintain sats > 90% * #Non anion gap metabolic acidosis due to diarrhea * resolved. bicarb is 29. * nephrology on board. * * #Recent right orbital cellulitis * completed a course of bactrim * #Bipolar disorder and depression: on aripiprazole and buspar as well as remeron. #Chronic pancreatitis: on Creon. #Hypertension:on amlodipine DVT prophylaxis: heparin Charges/Coding Visit Charges Inpatient E&M: 54608 Subs Hosp L2 11/06/22 1503 <Electronically signed by Anastacia Bonilal MD> Cosigner Signature (if applicable): CC: ~ Signed [facility] Work Phone: 1(732) 677-942902-09-[address] Iverson [facility] November 06, 2022 2:28pm Note Date/Time November 06, 2022 2 :28pm [facility] Medical Records Department [address] [place] [id number] Progress Note - Nephrology 11/06/22 1427 MR#: [id number] Acct: [id number] Name: GRACIE BANUELOS Rep #:[id number] : 1965 57 From: Courtney sanders MD PCP: SOILA EASTON, WARNING COORDINATION METEOROLOGIST-C Status:ADM IN Location: [place] [address] Subjective Subjective No new complaints. Breathing looks better. Venous Dopplers negative. Objective Data Objective Data Vital Signs: Vital Signs Temp Pulse Resp BP Pulse Ox O2 Del Method O2 Flow Rate 98.5 F 97 16 141/92 H 94 Nasal Cannula 2 11/06/22 12:00 11/06/22 13:16 11/06/22 13:16 11/06/22 12:00 11/06/22 12:00 11/06/22 13:00 11/06/22 13:00 FiO2 30 11/05/22 07:21 Oxygen Flow Rate (L/min) 2 Oxygen Delivery Method Nasal Cannula Weight: 63.2 kg Body Mass Index (BMI) 23.7 Intake & Output: Intake and Output for Last 24 Hours 11/04/22 11/05/22 11/06/22 23:59 23:59 23:59 Intake Total 2337.25 / 2337.25 2415.00 / 2415.00 1470 / 1470 Output Total 1900 / 1900 2600 / 2600 1525 / 1525 Balance 437.25 / 437.25 -185.00 / -185.00 -55 / -55 Lab / Micro Data Result Diagrams: 11/06/22 03:27 11/06/22 03:27 Labs: Laboratory Results - last 24 hr 11/06/22 03:27: WBC 15.3 H, RBC 3.26 L, Hgb 8.8 L, Hct 27.0 L, MCV 82.8, MCH 27.0, MCHC 32.6, RDW Std Deviation 47.2 H, RDW Coeff of Min 15.4 H, Plt Count 358, MPV 9.8, Immature Gran % (Auto) 2.800 H, Neut % (Auto) 74.3 H, Lymph % (Auto) 11.1 L, Kenedy % (Auto) 9.9, Eos % (Auto) 1.6, Baso % (Auto) 0.3, Absolute Neuts (auto) 11.3 H, Absolute Lymphs (auto) 1.69, Nucleated RBC % 0, Diff Path Review Reviewed, Anisocytosis 1+ 11/06/22 03:27: Sodium 140, Potassium 3.9, Chloride 105, Carbon Dioxide 29.0, Anion Gap 6, BUN 22 H, Creatinine 1.24 H, Estim Creat Clear Calc 40.41, Est GFR (MDRD) Af Amer 57 L, Est GFR (MDRD) Non-Af 47 L, BUN/Creatinine Ratio 17.7, Glucose 141 H, Calcium 8.8 Micro: Microbiology 11/04/22 12:31 Blood Culture (Wb) - Right Hand Blood Culture - Preliminary 11/04/22 12:08 Blood Culture (Wb) - Left Hand Blood Culture - Preliminary 11/03/22 07:40 Mucosa - Nasopharyngeal Respiratory Panel (PCR) - Final 11/02/22 09:15 Stool Stool Lactoferrin - Final 11/02/22 09:15 Stool Stool Occult Blood (AGNIESZKA) - Final Radiography Diagnostic Testing: Radiology Impression Venous Doppler Study 11/05/22 08:33 Interpretation Summary No evidence for acute deep venous thrombosis bilateral lower extremities with patent and compressible bilateral great saphenous veins. Pulsatile venous flow was noted bilaterally consistent with proximal venous hypertension or obstruction. Clinical correlation would be appropriate. Ordering Physician: Gonzalo Sebastian Referring Physician: Soila Easton Performed By: Som Mcneil RVT Rhythm Strip Rhythm Strip: Sinus Rhythm Rate: 99 Ectopy: None Physical Exam Narrative Alert awake oriented x 3 no obvious distress no pallor no icterus no JVD s1s2 no murmurs lungs clear abdomen soft no organomegaly no edema no cyanosis frankel + Assessment & Plan Assessment/Plan (1) Acute kidney injury: PLAN: Acute renal failure. Prior to admission at [facility] and at the time ofad[facility] at [facility] creatinine was normal. She was subsequently transferred to [facility]. Discharge creatinine was 1.5. Urine analysis over there was fairly benign. She did receive vancomycin and Zosyn. Isee a vancomycin trough of 17. Possible she might have sustained ATN. She is admitted here with a creatinine of 2.0. She was started on Bactrim sinceshe had significant diarrhea from Augmentin. Currently has a Frankel catheter, obstructive disease unlikely. Urinalysis shows some hematuria, likely due to Frankel. Most likely this increase in creatinine is related to Bactrim. FinishedBactrim. Creatinine is improving. Good urine output. Hyperkalemia. Resolved CT chest without significant edema. DC fluids Can DC Frankel catheter 11/06/22 1428 <Electronically signed by Courtney Iverson MD> Cosigner Signature (if applicable): CC: ~ Signed [facility] Work Phone: 1(229) 494-625002-09-2023 History of Present illness Narrative* Yumiko Guerin MD - 11/06/2022 3:25 PM EST Teaching Physician Note: I have seen and examined the patient and supervised the procedures performed. I personally obtainedthe ochoa portions of the history and the ophthalmologic exam. I reviewed the resident's documentation and discussed the patient's history and examination with the resident. I agree with the resident'sdecision making as documented in the resident's note. Yumiko Guerin MD * Jeffery Jin MD - 10/20/2022 12:44 PM EST New consult from ED - new onset periocular swelling, redness for over a month, fluctuating - had been getting better on PO, but then worsened - no history of trauma or sinusitis - says eyelids infermittently swollen shut - localized throbbing headache, pain with EOM, kacie supraduction - presented to outside ED that did not have beds, sent to main campus for possible admission for orbital cellulitis - received one dose of clindamycin, apparently improving - PMH of COPD with recent exacerbation, ETOH hx of pancreatitis - Outside ED labs: WBC 13.9, ESR 75, CRP 42 - CT from OSH at 1900 on 10/19/22 not showing abscess Exam - VA 20/25-2 cc OD, 20/40-1 cc OS - IOP 14/12 - no APD - color plates full OU - EOM with pain, -2 infraduction, -1 supraduction OD - dane 15, 15 at 116 - boggy periorbital tissue with congested conjunvita - SLE exam otherwise unremarkable - DFE without evidence of optic neuropathy, retinal folds, vascular congestion 1. Periorbital/orbital swelling, OD - Ddx: NSOI, IgG4, orbital cellulitis, systemic inflammation (GPA, RA, SLE, Graves), orbital malignancy (less likely) - suspect most likely non-specific orbital inflammation given time course and CT from OSH without abscess or significant sinus disease; additionally, lateral rectus on right is grossly enlarged compared to the left - inflammatory markers elevated on recent labs - while infectious orbital cellulitis remains on differential, no apparent abscess to fit timeline or appearance on exam Recommendations: - needs MRI orbit with and without contrast - continue antibiotic coverage, consider ID consultation - would strongly suggest orbital biopsy if possible with ENT as there is high suspicion for inflammatory cause, in which case IV steroids would be necessary - Ancillary testing: - ARUNA - CXR - ANCA - IgG4 - Thyroid labs (TSH/T3/T4) Opthalmology will continue to follow for signs of optic neuropathy Please page with worsening vision, changing pupil exam, worsening swelling/proptosis on exam Jeffery Jin MD Ophthalmology Resident PGY-[address] Guerin documented in this [id number] Sebastian [facility] November 06, 2022 8:41am Note Date/Time November 06, 2022 5 :54am [facility] Medical Records Department [address] [place] [id number] Progress Note - Salon Leader 11/06/22 0553 MR#: [id number] Acct: [id number] Name: GRACIE BANUELOS Rep #:[id number] : 1965 57 From: Gonzalo Sebastian DO PCP: CARMEN STAHL Status:ADM IN Location: ICU CVICU20 3-1 Assessment & Plan Assessment/Plan (1) Stage 3 severe COPD by GOLD classification: PLAN: Plan RECOMMENDATIONS: 1. Continue baseline 2 L/min of supplemental oxygen. 2. Continue bronchodilators. 3. Antimicrobials can be discontinued from my perspective. 4. Transition to prednisone 40 mg daily for the next 5 days. 5. Minimize sedating medications. 6. Encourage incentive spirometer use and mobilize patient as tolerated. 7. The patient is medically stable for transfer out of the intensive care unit. 8. Given that the patient is at her baseline from a respiratory perspective, will sign off. Please call with any additional questions. IMPRESSIONS: 1. Acute on chronic hypoxemic respiratory failure The patient was transferred to the medical intensive care unit after becoming increasingly hypoxic with increased work of breathing, likely precipitated by anacute panic attack/generalized anxiety disorder. The patient has known obstructive lung disease and is already on triple therapy inhaler regimen on an outpatient basis. She does have a baseline 2 L/min oxygen requirement. The patient is currently at her baseline from a respiratory perspective. Plan to continue bronchodilators and prednisone 40 mg daily for the next 5 days. Antimicrobials can be discontinued from my perspective, given negative culture results. 2. Encephalopathy Clinical concern for metabolic etiology versus polypharmacy effects. With supportive care, the patient has improved and is currently at her baseline from a mentation perspective. I would try to limit sedating medications as feasible. 3. Diarrheal illness Unclear etiology. Defer further work-up and management to hospitalist. 4. Acute kidney injury Likely secondary to intravascular volume depletion/prerenal etiology in the setting of diarrhea. Continue to monitor urine output. No current indication for renal replacement therapy. Nephrology is following to assist with medical management. 5. Recent hospitalization for periorbital cellulitis/bipolar disorder/depression/anxiety/chronic pancreatitis Complicates care, management, recovery and prognosis. Continue home medicationsas indicated. This note was generated with [employer] dictation software. It may contain incorrectwords, spelling, and punctuation that were not noted in checking the note beforesigning. Subjective Subjective The patient was seen and examined at the bedside this morning. Events from the last 24 hours have been reviewed. The patient is currently afebrile, hemodynamically stable and maintaining appropriate oxygen saturations on 2 L/minvia nasal cannula. The patient is documented to be overall net +9.5 L for the hospitalization. White count has improved to 15,000. Creatinine has improved to1.24. The patient denies any resting shortness of breath. Objective Data Objective Data The patient's most recent lab work, culture data and imaging studies have all been personally reviewed. Infectious work-up has been unrevealing to date. Vital Signs: Vital Signs Temp Pulse Resp BP Pulse Ox O2 Del Method O2 Flow Rate 98.6 F 86 22 H 120/96 H 94 Nasal Cannula 2 11/06/22 05:00 11/06/22 05:00 11/06/22 05:00 11/06/22 05:00 11/06/22 05:00 11/06/22 05:00 11/06/22 05:00 FiO2 30 11/05/22 07:21 Oxygen Flow Rate (L/min) 2 Oxygen Delivery Method Nasal Cannula Weight: 139 lb 5.314 oz Body Mass Index (BMI) 23.7 Intake & Output: Intake and Output for Last 24 Hours 11/04/22 11/05/22 11/06/22 23:59 23:59 23:59 Intake Total 2337.25 / 2337.25 2415.00 / 2415.00 50 / 50 Output Total 1900 / 1900 2600 / 2600 Balance 437.25 / 437.25 -185.00 / -185.00 50 / 50 Lab / Micro Data Attestation: I reviewed the patient's lab results. Result Diagrams: 11/06/22 03:27 11/06/22 03:27 Labs: Laboratory Results - last 24 hr 11/02/22 09:15: Stool pH 6.0 L, Stool Calprotectin 118 11/05/22 03:52: Lipase 112 11/05/22 08:30: Random Vancomycin 18.2 H 11/05/22 08:30: APTT Cancelled 11/05/22 09:15: APTT 68.4 H 11/06/22 03:27: WBC 15.3 H, RBC 3.26 L, Hgb 8.8 L, Hct 27.0 L, MCV 82.8, MCH 27.0, MCHC 32.6, RDW Std Deviation 47.2 H, RDW Coeff of Min 15.4 H, Plt Count 358, MPV 9.8, Immature Gran % (Auto) 2.800 H, Neut % (Auto) 74.3 H, Lymph % (Auto) 11.1 L, Kenedy % (Auto) 9.9, Eos % (Auto) 1.6, Baso % (Auto) 0.3, Absolute Neuts (auto) 11.3 H, Absolute Lymphs (auto) 1.69, Nucleated RBC % 0, Diff Path Review May foll, Anisocytosis 1+ 11/06/22 03:27: Sodium 140, Potassium 3.9, Chloride 105, Carbon Dioxide 29.0, Anion Gap 6, BUN 22 H, Creatinine 1.24 H, Estim Creat Clear Calc 40.41, Est GFR (MDRD) Af Amer 57 L, Est GFR (MDRD) Non-Af 47 L, BUN/Creatinine Ratio 17.7, Glucose 141 H, Calcium 8.8 Micro: Microbiology 11/04/22 12:31 Blood Culture (Wb) - Right Hand Blood Culture - Preliminary 11/04/22 12:08 Blood Culture (Wb) - Left Hand Blood Culture - Preliminary 11/03/22 07:40 Mucosa - Nasopharyngeal Respiratory Panel (PCR) - Final 11/02/22 09:15 Stool Stool Lactoferrin - Final 11/02/22 09:15 Stool Stool Occult Blood (AGNIESZKA) - Final ABG Data ABG results: ABG 11/04/22 11/05/22 15:47 02:18 Specimen Type ART ART Sample Site R Radial L Radial pH 7.16 L* 7.21 L Bicarbonate Actual 16.9 L 17.6 L Total CO2 18 19 Base Excess -12 L -10 L O2 Saturation 93 L 97 O2 % 30 ABG pCO2 47.2 H 44.1 ABG pO2 83 107 H Sergei Test Positive N/A Respiration Rate 12 O2 Delivery Device BiPAP Cannula Liter Flow 3.0 Crit Call To/Read Back Yes Yes Blood Gas Notified Whom dr romulo Sebastian Radiography Diagnostic Testing: Radiology Impression Venous Doppler Study 11/05/22 08:33 Interpretation Summary No evidence for acute deep venous thrombosis bilateral lower extremities with patent and compressible bilateral great saphenous veins. Pulsatile venous flow was noted bilaterally consistent with proximal venous hypertension or obstruction. Clinical correlation would be appropriate. Ordering Physician: Gonzalo Sebastian Referring Physician: Soila Easton Performed By: Som Mcneil RVT Rhythm Strip Rhythm Strip: Sinus Rhythm Rate: 99 Ectopy: None Physical Exam Const alert, oriented x3 and no apparent distress General Appearance: cooperative HEENT normocephalic and head/scalp atraumatic Eyes PERRL, EOMs intact bilaterally and conjunctivae normal Neck supple General: trachea midline Chest inspection of chest normal Resp normal respiratory effort Auscultation: diminished lung sounds; Negative for rales, rhonchi or wheezes Cardio regular rate, regular rhythm, S1 normal heart sound and S2 normal heart sound GI normal to inspection, nondistended, normoactive bowel sounds Extremity no clubbing, cyanosis or edema Skin no rashes or lesions noted Neuro oriented x3, CN's II-XII intact bilaterally, moves all extremities and no focal motor deficits Psych cooperative Charges/Coding Visit Charges Inpatient E&M: 15222 Subs Hosp L2 11/06/22 0841 <Electronically signed by Gonzalo Sebastian DO> Cosigner Signature (if applicable): CC: ~ Signed [facility] Work Phone: [phone]) 438-264502-08-[address] Bonilla [facility] November 05, 2022 4:09pm Note Date/Time November 05, 2022 1 2:55pm [facility] Medical Records Department [address] [place] [address] Progress Note - Hospitalist 11/05/22 1252 MR#: [id number] Acct: [id number] Name: GRACIE BANUELOS Rep #:[id number] : 1965 57 From: Anastacia Bonilla MD PCP: SOILA EASTON, WARNING COORDINATION METEOROLOGIST-C Status:ADM IN Location: ICU CVICU20 3-1 Reason for Visit Reason for Visit: Diagnoses Chronic obstructive pulmonary disease, unspecified (11/01/22) Acute kidney failure, unspecified (11/01/22) Nausea with vomiting, unspecified (11/01/22) Diarrhea, unspecified (11/01/22) Subjective Subjective Patient seen and examined.She felt much better this morning. She got very short of breath yesternight, and had to be placed on BIPAP. She has been weaned down to 2 L of oxygen. She denied any coughing, chest pain, palpitations, dizziness,nausea vomiting or diarrhea. Review of systems otherwise negative. Review of systems is otherwise negative. She was started on heparin drip due to concerns about possible PE. Objective Data Objective Data Vital Signs: Vital Signs Temp Pulse Resp BP Pulse Ox O2 Del Method O2 Flow Rate 98.5 F 96 35 H 108/84 H 99 Bi-pap 3 11/05/22 07:00 11/05/22 07:21 11/05/22 07:21 11/05/22 07:00 11/05/22 07:21 11/05/22 08:00 11/05/22 05:00 FiO2 30 11/05/22 07:21 Oxygen Flow Rate (L/min) 3 Oxygen Delivery Method Bi-pap Weight: 136 lb 14.513 oz Body Mass Index (BMI) 23.7 Intake & Output: Intake and Output for Last 24 Hours 11/03/22 11/04/22 11/05/22 23:59 23:59 23:59 Intake Total 2556.0 / 2556.0 2337.25 / 2337.25 162 / 162 Output Total 1000 / 1000 1900 / 1900 1300 / 1300 Balance 1556.0 / 1556.0 437.25 / 437.25 -1138 / -1138 Lab / Micro Data Result Diagrams: 11/05/22 03:52 11/05/22 03:52 Labs: Laboratory Results - last 24 hr 11/02/22 09:15: Stool pH 6.0 L, Stool Calprotectin 118 11/04/22 15:40: Lactic Acid 1.4 11/04/22 15:40: Urine Creatinine 33.40, Urine Urea Nitrogen 302 11/04/22 15:40: Urine Color Yellow, Urine Clarity Clear, Urine pH 6.0, Ur Specific Greer 1.015, Urine Protein 30 H, Urine Glucose (UA) 50 H, Urine Ketones Negative, Urine Occult Blood 150 H, Urine Nitrite Negative, Urine Bilirubin Negative, Urine Urobilinogen Normal, Ur Leukocyte Esterase Negative, Urine RBC 10-25 SEEN, Urine WBC 0-5 SEEN, Ur Squamous Epith Cells 0 SEEN, Urine Bacteria RARE, Urine Mucus 0 SEEN 11/04/22 19:00: PT Cancelled, INR Cancelled, APTT Cancelled 11/04/22 19:35: PT 14.6, INR 1.2, APTT 27.3 11/04/22 20:33: Sodium 138, Potassium 5.4 H, Chloride 113 H, Carbon Dioxide 19.0L, Anion Gap 6, BUN 27 H, Creatinine 1.91 H, Estim Creat Clear Calc 26.23, Est GFR (MDRD) Af Amer 35 L, Est GFR (MDRD) Non-Af 29 L, BUN/Creatinine Ratio 14.1, Glucose 97, Calcium 8.9 11/05/22 01:40: APTT 83.8 H 11/05/22 03:52: WBC 22.6 H, RBC 3.38 L, Hgb 9.4 L, Hct 29.3 L, MCV 86.7, MCH 27.8, MCHC 32.1, RDW Std Deviation 50.5 H, RDW Coeff of Min 15.9 H, Plt Count 354, MPV 9.8, Immature Gran % (Auto) 4.400 H, Neut % (Auto) 85.4 H, Lymph % (Auto) 4.8 L, Kenedy % (Auto) 4.4, Eos % (Auto) 0.6, Baso % (Auto) 0.4, Absolute Neuts (auto) 19.3 H, Absolute Lymphs (auto) 1.08, Nucleated RBC % 0 11/05/22 03:52: Sodium 140, Potassium 5.4 H, Chloride 114 H, Carbon Dioxide 19.0L, Anion Gap 7, BUN 28 H, Creatinine 1.84 H, Estim Creat Clear Calc 27.23, Est GFR (MDRD) Af Amer 36 L, Est GFR (MDRD) Non-Af 30 L, BUN/Creatinine Ratio 15.2, Glucose 139 H, Calcium 9.1 11/05/22 03:52: Lipase 112 11/05/22 08:30: Random Vancomycin 18.2 H 11/05/22 08:30: APTT Cancelled 11/05/22 09:15: APTT 68.4 H Micro: Microbiology 11/04/22 12:31 Blood Culture (Wb) - Right Hand Blood Culture - Preliminary 11/04/22 12:08 Blood Culture (Wb) - Left Hand Blood Culture - Preliminary 11/03/22 07:40 Mucosa - Nasopharyngeal Respiratory Panel (PCR) - Final 11/02/22 09:15 Stool Stool Lactoferrin - Final 11/02/22 09:15 Stool Stool Occult Blood (AGNIESZKA) - Final ABG Data ABG results: ABG 11/04/22 11/05/22 15:47 02:18 Specimen Type ART ART Sample Site R Radial L Radial pH 7.16 L* 7.21 L Bicarbonate Actual 16.9 L 17.6 L Total CO2 18 19 Base Excess -12 L -10 L O2 Saturation 93 L 97 O2 % 30 ABG pCO2 47.2 H 44.1 ABG pO2 83 107 H Sergei Test Positive N/A Respiration Rate 12 O2 Delivery Device BiPAP Cannula Liter Flow 3.0 Crit Call To/Read Back Yes Yes Blood Gas Notified Whom dr romulo Sebastian Radiography Diagnostic Testing: Radiology Impression Chest/Abdomen/Pelvis CT 11/04/22 10:48 IMPRESSION: Small left pleural effusion or left basilar infiltration and/or atelectasis. Minimal right pleural effusion and mild right basilar atelectasis. Since prior study, the patient underwent a cholecystectomy. Multiple punctate calcifications are seen in the region of the head and uncinate processes of the pancreas in keeping with prior pancreatitis. Electronically Signed: Zaid Justice MD at 13:01 EST , Chest X-Ray 11/04/22 16:05 IMPRESSION: Mild interstitial prominence, no change from recent studies. Electronically Signed: Maribeth Andino MD at 17:01 EST Reading Location ID and State: [id number] / Tel , Service support , Rhythm Strip Rhythm Strip: Sinus Rhythm Rate: 99 Ectopy: None Physical Exam Const alert, oriented x3 and no apparent distress HEENT head/scalp atraumatic, moist oral mucous membranes and oropharynx normal Head and Scalp: normocephalic Eyes PERRL, EOMs intact bilaterally and conjunctivae normal Neck no lymphadenopathy and supple Resp Resp Narrative: diminished breath sounds bibasally, no wheezes or crackles. on 2L of oxygen by nasal canula. Cardio regular rate, regular rhythm, S1 normal heart sound and S2 normal heart sound GI normal to inspection, nondistended, normoactive bowel sounds, soft to palpation,non-tender and non-distended Extremity normal to inspection, full ROM and no clubbing, cyanosis or edema Neuro oriented x3, CN's II-XII intact bilaterally and moves all extremities Sensorium / Orientation: awake and alert Motor Exam: strength 5/5 throughout Psych affect normal Assessment & Plan Assessment/Plan (1) Nausea & vomiting: (2) Diarrhea: PLAN: Plan #Acute on chronic hypoxic respiratory failure * Patient became hypoxic overnight with increased work of breathing. She was having respiratory rate in the 50s. * She was placed on BiPAP but was weaned off of BiPAP onto 2 L of oxygen this morning. * Does not concern about possible PE but it does seem like patient had an acute panic attack and has generalized anxiety disorder. * She is on IV vancomycin and Zosyn and blood cultures also pending. Duplex of the lower extremities done today was negative for PE. * She was started on heparin drip due to concerns about PE. Per discussion with Critical care, her oxygen requirements has improved, so she can be taken off the heparin drip and placed on prophylactic heparin #Acute renal injury due to volume depletion due to acute diarrhea * Cr on admission was 2.05; hydrate gently with iVF * Creatinine is down to 1.84 today with EGFR of 30. * Nephrology on board. * * #Acute diarrhea * C diff ruled out * on immodium. * stool studies pending * diarrhea resolving * #Community acquired pneumonia * was transferred emergently to ICU due to acute respiratory distress * CXR showed evidence of pneumonia * CT of the chest done yesterday showed small left pleural effusion or left basilar infiltration and/or atelectasis with minimal right pleural effusion. * critical care on board. * #sepsis * WBC is now down to 22 today from 27. * CT of the chest as above. CT of the abdomen and pelvis showed no evidence of infection. * Repeat blood cultures pending. * On IV vancomycin and Zosyn. * #Hyperkalemia: Potassium is 5.4. Nephrology on board. Will benefit from Kayexalate. #COPD: * breathing treatment with bronchodilators. * Titrate oxygen to maintain sats > 90% * not in exacerbation #Non anion gap metabolic acidosis due to diarrhea * bicarb today is 19, with anion gap of 7. * nephrology on board. * * #Recent right orbital cellulitis * completed a course of bactrim * #Bipolar disorder and depression: on aripiprazole and buspar as well as remeron. #Chronic pancreatitis: on Creon. #Hypertension:on amlodipine DVT prophylaxis: heparin Charges/Coding Visit Charges Inpatient E&M: 64154 Subs Hosp L2 11/05/22 1605 <Electronically signed by Anastacia Bonilla MD> Cosigner Signature (if applicable): CC: ~ Signed [facility] Work Phone: 1(770) [phone] Bonilla [facility] November 05, 2022 4:07pm Note Date/Time November 05, 2022 9 :45[facility] Medical Records Department [address] [facility] [place] [address] Pharmacokinetic/Renal -Consult 11/05/22 0941 MR#: [id number] Acct: [id number] Name: GRACIE BANUELOS Rep #:[id number] : 1965 57 From: Donn Wilson PCP: SOILA EASTON, WARNING COORDINATION METEOROLOGIST-C Status:ADM IN Y Location: ICU CVICU20 3-1 Consult Pharmacy has been consulted to manage selected antiobiotic: Vancomycin Type of Consult: Follow-up Suspected Infection: Pneumonia Prior Doses of Antibiotics Received/Current Regimen: Received 1500mg iv x 1 on 11.04.22 @1950. Labs: Sodium 140 mmol/L (136-145) 11/05/22 03:52 Potassium 5.4 mmol/L (3.5-5.1) H 11/05/22 03:52 Chloride 114 mmol/L (98-107) H 11/05/22 03:52 Carbon Dioxide 19.0 mmol/L (21.0-32.0) L 11/05/22 03:52 Anion Gap 7 (5-15) 11/05/22 03:52 BUN 28 mg/dL (7-18) H 11/05/22 03:52 Creatinine 1.84 mg/dL (0.55-1.02) H 11/05/22 03:52 Est GFR (MDRD) Af Amer 36 mL/min (>60) L 11/05/22 03:52 Est GFR (MDRD) Non-Af 30 mL/min (>60) L 11/05/22 03:52 BUN/Creatinine Ratio 15.2 RATIO (10-20) 11/05/22 03:52 Glucose 139 mg/dL (74-106) H 11/05/22 03:52 Random Vancomycin 18.2 ug/mL (0.0-15.0) H 11/05/22 08:30 Microbiology: Microbiology 11/04/22 12:31 Blood Culture (Wb) - Right Hand Blood Culture - Preliminary 11/04/22 12:08 Blood Culture (Wb) - Left Hand Blood Culture - Preliminary 11/03/22 07:40 Mucosa - Nasopharyngeal Respiratory Panel (PCR) - Final 11/02/22 09:15 Stool Stool Lactoferrin - Final 11/02/22 09:15 Stool Stool Occult Blood (AGNIESZKA) - Final Weight used for dosin.1 kg Estimated Creatinine Clearance: 27 ml/min Goal Trough: 15-20 mcg/mL Pharmacy Plan for Drug Dosing: Random level this AM ~12.5 post dose was 18.2 and within goal range of 15-20 mcg/ml. Renal improved from Cr 2.16 to 1.84. Will begin scheduled dosing of 750mg IV per protocol with trough level ordered for before 3rd dose. Pharmacy Service will continue to monitor and adjust dosing as required. Follow-Up Labs: Trough Vancomycin - 2.10.23 @1330 before 1400 dose 11/05/22 0945 <Electronically signed by Donn Wilson > Date _ Donn Wilson 11/05/22 1607 <Electronically signed by Anastacia cisneros MD> Cosigner Signature (if applicable): Date Anastacia Bonilla MD CC: ~ Signed [facility] Work Phone: [phone]) 421-920602-08-[address] Iverson [facility] November 05, 2022 10:42am Note Date/Time November 05, 2022 1 0:42am [facility] Medical Records Department [address] [place] [address] Progress Note - Nephrology 11/05/22 1037 MR#: [id number] Acct: [id number] Name: GRACIE BANUELOS Rep #:[id number] : 1965 57 From: Courtney sanders MD PCP: SOILA EASTON, WARNING COORDINATION METEOROLOGIST-C Status:ADM IN Location: ICU CVICU20 3-1 Subjective Subjective No new complaints. Breathing looks somewhat better. Urine output is okay. Overnight she was started on heparin drip due to suspicion of PE. CT chest and abdomen without contrast without any significant findings. Objective Data Objective Data Vital Signs: Vital Signs Temp Pulse Resp BP Pulse Ox O2 Del Method O2 Flow Rate 98.5 F 96 35 H 108/84 H 99 Bi-pap 3 11/05/22 07:00 11/05/22 07:21 11/05/22 07:21 11/05/22 07:00 11/05/22 07:21 11/05/22 08:00 11/05/22 05:00 FiO2 30 11/05/22 07:21 Oxygen Flow Rate (L/min) 3 Oxygen Delivery Method Bi-pap Weight: 62.1 kg Body Mass Index (BMI) 23.7 Intake & Output: Intake and Output for Last 24 Hours 11/03/22 11/04/22 11/05/22 23:59 23:59 23:59 Intake Total 2556.0 / 2556.0 2337.25 / 2337.25 162 / 162 Output Total 1000 / 1000 1900 / 1900 550 / 550 Balance 1556.0 / 1556.0 437.25 / 437.25 -388 / -388 Lab / Micro Data Result Diagrams: 11/05/22 03:52 11/05/22 03:52 Labs: Laboratory Results - last 24 hr 11/02/22 09:15: Stool pH 6.0 L, Stool Calprotectin 118 11/04/22 15:40: Lactic Acid 1.4 11/04/22 15:40: Urine Creatinine 33.40, Urine Urea Nitrogen 302 11/04/22 15:40: Urine Color Yellow, Urine Clarity Clear, Urine pH 6.0, Ur Specific Greer 1.015, Urine Protein 30 H, Urine Glucose (UA) 50 H, Urine Ketones Negative, Urine Occult Blood 150 H, Urine Nitrite Negative, Urine Bilirubin Negative, Urine Urobilinogen Normal, Ur Leukocyte Esterase Negative, Urine RBC 10-25 SEEN, Urine WBC 0-5 SEEN, Ur Squamous Epith Cells 0 SEEN, Urine Bacteria RARE, Urine Mucus 0 SEEN 11/04/22 19:00: PT Cancelled, INR Cancelled, APTT Cancelled 11/04/22 19:35: PT 14.6, INR 1.2, APTT 27.3 11/04/22 20:33: Sodium 138, Potassium 5.4 H, Chloride 113 H, Carbon Dioxide 19.0L, Anion Gap 6, BUN 27 H, Creatinine 1.91 H, Estim Creat Clear Calc 26.23, Est GFR (MDRD) Af Amer 35 L, Est GFR (MDRD) Non-Af 29 L, BUN/Creatinine Ratio 14.1, Glucose 97, Calcium 8.9 11/05/22 01:40: APTT 83.8 H 11/05/22 03:52: WBC 22.6 H, RBC 3.38 L, Hgb 9.4 L, Hct 29.3 L, MCV 86.7, MCH 27.8, MCHC 32.1, RDW Std Deviation 50.5 H, RDW Coeff of Min 15.9 H, Plt Count 354, MPV 9.8, Immature Gran % (Auto) 4.400 H, Neut % (Auto) 85.4 H, Lymph % (Auto) 4.8 L, Kenedy % (Auto) 4.4, Eos % (Auto) 0.6, Baso % (Auto) 0.4, Absolute Neuts (auto) 19.3 H, Absolute Lymphs (auto) 1.08, Nucleated RBC % 0 11/05/22 03:52: Sodium 140, Potassium 5.4 H, Chloride 114 H, Carbon Dioxide 19.0L, Anion Gap 7, BUN 28 H, Creatinine 1.84 H, Estim Creat Clear Calc 27.23, Est GFR (MDRD) Af Amer 36 L, Est GFR (MDRD) Non-Af 30 L, BUN/Creatinine Ratio 15.2, Glucose 139 H, Calcium 9.1 11/05/22 03:52: Lipase 112 11/05/22 08:30: Random Vancomycin 18.2 H 11/05/22 08:30: APTT Cancelled 11/05/22 09:15: APTT 68.4 H Micro: Microbiology 11/04/22 12:31 Blood Culture (Wb) - Right Hand Blood Culture - Preliminary 11/04/22 12:08 Blood Culture (Wb) - Left Hand Blood Culture - Preliminary 11/03/22 07:40 Mucosa - Nasopharyngeal Respiratory Panel (PCR) - Final 11/02/22 09:15 Stool Stool Lactoferrin - Final 11/02/22 09:15 Stool Stool Occult Blood (AGNIESZKA) - Final ABG Data ABG results: ABG 11/04/22 11/05/22 15:47 02:18 Specimen Type ART ART Sample Site R Radial L Radial pH 7.16 L* 7.21 L Bicarbonate Actual 16.9 L 17.6 L Total CO2 18 19 Base Excess -12 L -10 L O2 Saturation 93 L 97 O2 % 30 ABG pCO2 47.2 H 44.1 ABG pO2 83 107 H Sergei Test Positive N/A Respiration Rate 12 O2 Delivery Device BiPAP Cannula Liter Flow 3.0 Crit Call To/Read Back Yes Yes Blood Gas Notified Whom dr romulo Sebastian Radiography Diagnostic Testing: Radiology Impression Chest/Abdomen/Pelvis CT 11/04/22 10:48 IMPRESSION: Small left pleural effusion or left basilar infiltration and/or atelectasis. Minimal right pleural effusion and mild right basilar atelectasis. Since prior study, the patient underwent a cholecystectomy. Multiple punctate calcifications are seen in the region of the head and uncinate processes of the pancreas in keeping with prior pancreatitis. Electronically Signed: Zaid Justice MD at 13:01 EST , Chest X-Ray 11/04/22 16:05 IMPRESSION: Mild interstitial prominence, no change from recent studies. Electronically Signed: Maribeth Andino MD at 17:01 EST Reading Location ID and State: [id number] / Tel , Service support , Rhythm Strip Rhythm Strip: Sinus Rhythm Rate: 99 Ectopy: None Physical Exam Narrative Alert awake oriented x 3 no obvious distress no pallor no icterus no JVD s1s2 no murmurs lungs clear abdomen soft no organomegaly no edema no cyanosis frankel + Assessment & Plan Assessment/Plan (1) Acute kidney injury: PLAN: Acute renal failure. Prior to admission at [facility] and at the time ofadmission at [facility] creatinine was normal. She was subsequently transferred to [facility]. Discharge creatinine was 1.5. Urine analysis over there was fairly benign. She did receive vancomycin and Zosyn. Isee a vancomycin trough of 17. Possible she might have sustained ATN. She is admitted here with a creatinine of 2.0. She was started on Bactrim sinceshe had significant diarrhea from Augmentin. Currently has a Frankel catheter, obstructive disease unlikely. Urinalysis shows some hematuria, likely due to Frankel. Most likely this increase in creatinine is related to Bactrim. FinishedBactrim. Creatinine is improving. Good urine output. Hyperkalemia. Again could be mediated by Bactrim. Will change bicarbonate to IV. CT chest without significant edema. IV fluids, bicarbonate. This should help with hyperkalemia as well. She may need CT PE protocol study since she improved with heparin drip. Maintain fluids for today Discussed with hospitalist 11/05/22 1042 <Electronically signed by Courtney Iverson MD> Cosigner Signature (if applicable): CC: ~ Signed [facility] Work Phone: [phone]) [phone] Sebastian [facility] November 05, 2022 9:58am Note Date/Time November 05, 2022 5 :52am [facility] Medical Records Department [address] [place] [address] Progress Note - Salon Leader 11/05/22 0551 MR#: [id number] Acct: [id number] Name: GRACIE BANUELOS Rep #:[id number] : 1965 57 From: Gonzalo Sebastian DO PCP: CARMEN STAHL Status:ADM IN Location: ICU CVICU20 3-1 Assessment & Plan Assessment/Plan (1) Stage 3 severe COPD by GOLD classification: PLAN: Plan RECOMMENDATIONS: 1. Attempt to wean from BiPAP to nasal cannula supplemental oxygen. 2. Continue bronchodilators. 3. Continue heparin infusion for now. Obtain lower extremity Doppler studies. 4. Continue empiric antimicrobials, pending culture results. 5. Hold all sedating medications for now. 6. Decrease methylprednisone to once daily. 7. Continue sodium bicarbonate repletion per nephrology. IMPRESSIONS: 1. Acute on chronic hypoxemic respiratory failure The patient was transferred to the medical intensive care unit after becoming increasingly hypoxic with increased work of breathing, likely precipitated by anacute panic attack/generalized anxiety disorder. The patient has known obstructive lung disease and is already on triple therapy inhaler regimen on an outpatient basis. She does have a baseline 2 L/min oxygen requirement. The patient can be weaned from BiPAP therapy at this time and transition back to nasal cannula supplemental oxygen. Empiric antimicrobials will be continued, pending culture results. 2. Encephalopathy Clinical concern for metabolic etiology versus polypharmacy effects. The patient seems to be more alert and cooperative this morning. Plan to hold all sedating medications for now. 3. Diarrheal illness Unclear etiology. Defer further work-up and management to hospitalist. 4. Acute kidney injury Likely secondary to intravascular volume depletion/prerenal etiology in the setting of diarrhea. Continue to monitor urine output. No current indication for renal replacement therapy. Nephrology is following to assist with medical management. 5. Recent hospitalization for periorbital cellulitis/bipolar disorder/depression/anxiety/chronic pancreatitis Complicates care, management, recovery and prognosis. Continue home medicationsas indicated. This note was generated with [employer] dictation software. It may contain incorrectwords, spelling, and punctuation that were not noted in checking the note beforesigning. Subjective Subjective The patient was seen and examined at the bedside this morning. Events from the last 24 hours have been reviewed. The patient is currently afebrile, hemodynamically stable and maintaining appropriate oxygen saturations on BiPAP with an FiO2 requirement of 30%. Yesterday afternoon into early evening, the patient became increasingly confused and disoriented. Her oxygen requirement increased and she became increasingly tachypneic. Due to her confusion, she had a great deal of difficulty in tolerating BiPAP utilization. Her white count remains elevated at 22,000 this morning. She was started yesterday empirically on a heparin infusion to cover for potential PE, given the inability to obtain a contrasted chest CT due to underlying renal insufficiency. Her creatinine is relatively stable this morning at 1.84 with a potassium of 5.4 and bicarbonate of 19. She is currently documented to be overall net +9.2 L for the hospitalization. I did call and personally speak with the patient's sister, Domonique, this morning toclarify the patient's drinking status. The patient's sister reported that she was previously a heavy drinker, but more recently has only been drinking on average 2-3 beers per week. Objective Data Objective Data The patient's most recent lab work, culture data and imaging studies have all been personally reviewed. Infectious work-up has been unrevealing to date. Vital Signs: Vital Signs Temp Pulse Resp BP Pulse Ox O2 Del Method O2 Flow Rate 98.3 F 106 H 34 H 98/78 97 Nasal Cannula 3 11/05/22 05:00 11/05/22 05:46 11/05/22 05:46 11/05/22 05:00 11/05/22 05:46 11/05/22 05:00 11/05/22 05:00 FiO2 30 11/05/22 05:46 Oxygen Flow Rate (L/min) 3 Oxygen Delivery Method Nasal Cannula Weight: 136 lb 14.513 oz Body Mass Index (BMI) 23.7 Intake & Output: Intake and Output for Last 24 Hours 11/03/22 11/04/22 11/05/22 23:59 23:59 23:59 Intake Total 2556.0 / 2556.0 2337.25 / 2337.25 112 / 112 Output Total 1000 / 1000 1900 / 1900 550 / 550 Balance 1556.0 / 1556.0 437.25 / 437.25 -438 / -438 Lab / Micro Data Attestation: I reviewed the patient's lab results. Result Diagrams: 11/05/22 03:52 11/05/22 03:52 Labs: Laboratory Results - last 24 hr 11/04/22 08:27: Sodium 137, Potassium 5.3 H, Chloride 114 H, Carbon Dioxide 16.0L, Anion Gap 7, BUN 27 H, Creatinine 2.16 H, Estim Creat Clear Calc 23.20, Est GFR (MDRD) Af Amer 30 L, Est GFR (MDRD) Non-Af 25 L, BUN/Creatinine Ratio 12.5, Glucose 129 H, Calcium 8.8 11/04/22 15:40: Lactic Acid 1.4 11/04/22 15:40: Urine Creatinine 33.40, Urine Urea Nitrogen 302 11/04/22 15:40: Urine Color Yellow, Urine Clarity Clear, Urine pH 6.0, Ur Specific Greer 1.015, Urine Protein 30 H, Urine Glucose (UA) 50 H, Urine Ketones Negative, Urine Occult Blood 150 H, Urine Nitrite Negative, Urine Bilirubin Negative, Urine Urobilinogen Normal, Ur Leukocyte Esterase Negative, Urine RBC 10-25 SEEN, Urine WBC 0-5 SEEN, Ur Squamous Epith Cells 0 SEEN, Urine Bacteria RARE, Urine Mucus 0 SEEN 11/04/22 19:00: PT Cancelled, INR Cancelled, APTT Cancelled 11/04/22 19:35: PT 14.6, INR 1.2, APTT 27.3 11/04/22 20:33: Sodium 138, Potassium 5.4 H, Chloride 113 H, Carbon Dioxide 19.0L, Anion Gap 6, BUN 27 H, Creatinine 1.91 H, Estim Creat Clear Calc 26.23, Est GFR (MDRD) Af Amer 35 L, Est GFR (MDRD) Non-Af 29 L, BUN/Creatinine Ratio 14.1, Glucose 97, Calcium 8.9 11/05/22 01:40: APTT 83.8 H 11/05/22 03:52: WBC 22.6 H, RBC 3.38 L, Hgb 9.4 L, Hct 29.3 L, MCV 86.7, MCH 27.8, MCHC 32.1, RDW Std Deviation 50.5 H, RDW Coeff of Min 15.9 H, Plt Count 354, MPV 9.8, Immature Gran % (Auto) 4.400 H, Neut % (Auto) 85.4 H, Lymph % (Auto) 4.8 L, Kenedy % (Auto) 4.4, Eos % (Auto) 0.6, Baso % (Auto) 0.4, Absolute Neuts (auto) 19.3 H, Absolute Lymphs (auto) 1.08, Nucleated RBC % 0 11/05/22 03:52: Sodium 140, Potassium 5.4 H, Chloride 114 H, Carbon Dioxide 19.0L, Anion Gap 7, BUN 28 H, Creatinine 1.84 H, Estim Creat Clear Calc 27.23, Est GFR (MDRD) Af Amer 36 L, Est GFR (MDRD) Non-Af 30 L, BUN/Creatinine Ratio 15.2, Glucose 139 H, Calcium 9.1 Micro: Microbiology 11/04/22 12:31 Blood Culture (Wb) - Right Hand Blood Culture - Preliminary 11/04/22 12:08 Blood Culture (Wb) - Left Hand Blood Culture - Preliminary 11/03/22 07:40 Mucosa - Nasopharyngeal Respiratory Panel (PCR) - Final 11/02/22 09:15 Stool Stool Lactoferrin - Final 11/02/22 09:15 Stool Stool Occult Blood (AGNIESZKA) - Final ABG Data ABG results: ABG 11/04/22 11/05/22 15:47 02:18 Specimen Type ART ART Sample Site R Radial L Radial pH 7.16 L* 7.21 L Bicarbonate Actual 16.9 L 17.6 L Total CO2 18 19 Base Excess -12 L -10 L O2 Saturation 93 L 97 O2 % 30 ABG pCO2 47.2 H 44.1 ABG pO2 83 107 H Sergei Test Positive N/A Respiration Rate 12 O2 Delivery Device BiPAP Cannula Liter Flow 3.0 Crit Call To/Read Back Yes Yes Blood Gas Notified Whom dr romulo Sebastian Radiography Diagnostic Testing: Radiology Impression Chest/Abdomen/Pelvis CT 11/04/22 10:48 IMPRESSION: Small left pleural effusion or left basilar infiltration and/or atelectasis. Minimal right pleural effusion and mild right basilar atelectasis. Since prior study, the patient underwent a cholecystectomy. Multiple punctate calcifications are seen in the region of the head and uncinate processes of the pancreas in keeping with prior pancreatitis. Electronically Signed: Zaid Justice MD at 13:01 EST , Chest X-Ray 11/04/22 16:05 IMPRESSION: Mild interstitial prominence, no change from recent studies. Electronically Signed: Maribeth Andino MD at 17:01 EST Reading Location ID and State: [id number] / Tel , Service support , Rhythm Strip Rhythm Strip: Sinus Rhythm Rate: 99 Ectopy: None Physical Exam Const alert and no apparent distress General Appearance: on BiPAP Orientation / Consciousness: confused and disoriented HEENT normocephalic and head/scalp atraumatic Eyes PERRL, EOMs intact bilaterally and conjunctivae normal Neck supple General: trachea midline Chest inspection of chest normal Resp Effort and Inspection: tachypneic Auscultation: wheezes and diminished lung sounds Cardio S1 normal heart sound and S2 normal heart sound Rate: tachycardic GI normal to inspection, nondistended, normoactive bowel sounds Extremity no clubbing, cyanosis or edema Skin no rashes or lesions noted Neuro moves all extremities and no focal motor deficits Psych Activity / Motor Behavior: restless Charges/Coding Visit Charges Inpatient E&M: 01175 Subs Hosp L3 11/05/22 0958 <Electronically signed by Gonzalo Sebastian DO> Cosigner Signature (if applicable): CC: ~ Signed [facility] Work Phone: [phone]) [phone] Bonilla [facility] November 05, 2022 7:20am Note Date/Time November 04, 2022 9 :22pm [facility] Medical Records Department [address] [facility] [place] [address] Pharmacokinetic/Renal -Consult 11/04/222119 MR#: [id number] Acct: [id number] Name: GRACIE BANUELOS Rep #:[id number] : 1965 57 From: Sudhir Lott [facility] PCP: CARMEN STAHL Status:ADM IN Y Location: ICU CVICU20 3-1 Consult Pharmacy has been consulted to manage selected antiobiotic: Vancomycin Type of Consult: New start Suspected Infection: Pneumonia Labs: Sodium 138 mmol/L (136-145) 11/04/22 20:33 Potassium 5.4 mmol/L (3.5-5.1) H 11/04/22 20:33 Chloride 113 mmol/L (98-107) H 11/04/22 20:33 Carbon Dioxide 19.0 mmol/L (21.0-32.0) L 11/04/22 20:33 Anion Gap 6 (5-15) 11/04/22 20:33 BUN 27 mg/dL (7-18) H 11/04/22 20:33 Creatinine 1.91 mg/dL (0.55-1.02) H 11/04/22 20:33 Est GFR (MDRD) Af Amer 35 mL/min (>60) L 11/04/22 20:33 Est GFR (MDRD) Non-Af 29 mL/min (>60) L 11/04/22 20:33 BUN/Creatinine Ratio 14.1 RATIO (10-20) 11/04/22 20:33 Glucose 97 mg/dL (74-106) 11/04/22 20:33 Microbiology: Microbiology 11/04/22 12:31 Blood Culture (Wb) - Right Hand Blood Culture - Preliminary 11/04/22 12:08 Blood Culture (Wb) - Left Hand Blood Culture - Preliminary 11/03/22 07:40 Mucosa - Nasopharyngeal Respiratory Panel (PCR) - Final 11/02/22 09:15 Stool Stool Lactoferrin - Final 11/02/22 09:15 Stool Stool Occult Blood (AGNIESZKA) - Final Goal Trough: 15-20 mcg/mL Pharmacy Plan for Drug Dosing: NEW START IV VANCOMYCIN Consulting Physician: Chad Indication: Pneumonia Goal Trough: 15-20 SrCr: 2.16 (increased from 2.01 on 11/03/22) CrCl: Comments: pt received a 25mg/kg loading dose on 11/04/22 at 1951 Vancomycin Dose: due to pts increasing SrCr, recommend checking a random level 12 hours after initial dose. That will also give time for the am lab draws to result and check renal function on 11/05/22 Pending Level: 11/05/22 at 0800 due to renal function Pharmacy Service will continue to monitor and adjust dosing as required. Follow-Up Labs: Trough Vancomycin - 11/05/22 at 0800 11/04/222121 <Electronically signed by Sudhir Cody [facility]> Date _ Sudhir Stanton [facility] 11/05/22 0720 <Electronically signed by Anastacia cisneros MD> Cosigner Signature (if applicable): Date Anastacia Bonilla MD CC: ~ Signed [facility] Work Phone: [phone]) 124-210002-07-[address] Bonilla [facility] November 04, 2022 3:49pm Note Date/Time November 04, 2022 1 0:[address] [place] [address] System Medical Records Department [address] [place] [address] Progress Note - Hospitalist 11/04/22 1020 MR#: [id number] Acct: [id number] Name: GRACIE BANUELOS Rep #:[id number] : 1965 57 From: Anastacia Bonilla MD PCP: SOILA EASTON, WARNING COORDINATION METEOROLOGIST-C Status:ADM IN Location: ICU CVICU20 3-1 Subjective Subjective Patient seen and examined. She had no active complaints. She was sleepy but would wake up to voice call. She denied any fever, chills, cough, chest pain, palpitations, dizziness, nausea, vomiting and diarrhea. Review of systems is otherwise negative. She is still tachycardic and tachypneic. Objective Data Objective Data Vital Signs: Vital Signs Temp Pulse Resp BP Pulse Ox O2 Del Method O2 Flow Rate 98.8 F 116 H 31 H 169/95 H 94 Nasal Cannula 2.5 11/04/22 04:00 11/04/22 07:23 11/04/22 07:23 11/04/22 04:00 11/04/22 07:23 11/04/22 07:23 11/04/22 07:23 FiO2 30 11/03/22 22:24 Oxygen Flow Rate (L/min) 2.5 Oxygen Delivery Method Nasal Cannula Weight: 137 lb 9.095 oz Body Mass Index (BMI) 23.7 Intake & Output: Intake and Output for Last 24 Hours 11/02/22 11/03/22 11/04/22 23:59 23:59 23:59 Intake Total 7461.42 / 7461.42 2556.0 / 2556.0 1033.50 / 1033.50 Output Total 800 / 800 1000 / 1000 650 / 650 Balance 6661.42 / 6661.42 1556.0 / 1556.0 383.50 / 383.50 Lab / Micro Data Result Diagrams: 11/04/22 04:50 11/04/22 08:27 Labs: Laboratory Results - last 24 hr 11/04/22 04:50: WBC 27.4 H, RBC 3.43 L, Hgb 9.3 L, Hct 29.3 L, MCV 85.4, MCH 27.1, MCHC 31.7 L, RDW Std Deviation 48.6 H, RDW Coeff of Min 15.4 H, Plt Count 362, MPV 9.8, Immature Gran % (Auto) 2.300 H, Neut % (Auto) 81.2 H, Lymph % (Auto) 5.6 L, Kenedy % (Auto) 4.6, Eos % (Auto) 5.9 H, Baso % (Auto) 0.4, AbsoluteNeuts (auto) 22.2 H, Absolute Lymphs (auto) 1.54, Nucleated RBC % 0, Anisocytosis 1+ 11/04/22 08:27: Sodium 137, Potassium 5.3 H, Chloride 114 H, Carbon Dioxide 16.0L, Anion Gap 7, BUN 27 H, Creatinine 2.16 H, Estim Creat Clear Calc 23.20, Est GFR (MDRD) Af Amer 30 L, Est GFR (MDRD) Non-Af 25 L, BUN/Creatinine Ratio 12.5, Glucose 129 H, Calcium 8.8 Micro: Microbiology 11/03/22 07:40 Mucosa - Nasopharyngeal Respiratory Panel (PCR) - Final 11/02/22 09:15 Stool Stool Lactoferrin - Final 11/02/22 09:15 Stool Stool Occult Blood (GANIESZKA) - Final Rhythm Strip Rhythm Strip: Sinus Rhythm Rate: 99 Ectopy: None Physical Exam Const alert, oriented x3 and no apparent distress HEENT head/scalp atraumatic, moist oral mucous membranes and oropharynx normal Head and Scalp: normocephalic Mouth: oral and palatal mucosa normal Eyes PERRL, EOMs intact bilaterally and conjunctivae normal Neck no lymphadenopathy and supple Resp Resp Narrative: diminished breath sounds bibasally, no wheezes or crackles. on 2L of oxygen by nasal canula. Cardio regular rate, regular rhythm, S1 normal heart sound and S2 normal heart sound GI normal to inspection, nondistended, normoactive bowel sounds, soft to palpation,non-tender and non-distended Extremity normal to inspection, full ROM and no clubbing, cyanosis or edema Neuro oriented x3, CN's II-XII intact bilaterally and moves all extremities Sensorium / Orientation: awake and alert Motor Exam: strength 5/5 throughout Psych affect normal Assessment & Plan Assessment/Plan (1) Nausea & vomiting: (2) Diarrhea: PLAN: Plan #Acute renal injury due to volume depletion due to acute diarrhea * Cr on admission was 2.05; hydrate gently with iVF * Cr is trending up today to 2.16 * nephrology consulted, as kidney function is not improving. * urine urea and Cr ordered to asses FeUrea. * #Acute diarrhea * C diff ruled out * on immodium. * stool studies pending * diarrhea improving * #Community acquired pneumonia * was transferred emergently to ICU due to acute respiratory distress * CXR showed evidence of pneumonia * on Iv zosyn * critical care on board. * #sepsis * is tachypneic, tachycardic and wbc has trended upwards from 15 yesterday to 27 today. * end organ damage is the worsening kidney function * CXR did show evidence of pneumonia; she is on IV zosyn * in light of her persistent and worsenign tachycardia, tachypnea and worsening wbc, will get CT of the chest, abdomen and pelvis without contrast (due to CHUY) to evaluate for any occult infection * will order repeat blood cultures * #COPD: * breathing treatment with bronchodilators. * Titrate oxygen to maintain sats > 90% * not in exacerbation #Non anion gap metabolic acidosis due to diarrhea * bicarb today is 15 * nephrology consulted * anion gap is 7 * #Recent right orbital cellulitis * on bactrim, with end date of 11/04. * on erythromycin eye drops. * #Bipolar disorder and depression: on aripiprazole and buspar as well as remeron. #Chronic pancreatitis: on Creon. #Hypertension:on amlodipine DVT prophylaxis: lovenox Charges/Coding Visit Charges Inpatient E&M: 62688 Subs Hosp L3 Reason for Visit Reason for Visit: Diagnoses Chronic obstructive pulmonary disease, unspecified (11/01/22) Acute kidney failure, unspecified (11/01/22) Nausea with vomiting, unspecified (11/01/22) Diarrhea, unspecified (11/01/22) 11/04/22 3298 <Electronically signed by Anastacia Bonilla MD> Cosigner Signature (if applicable): CC: ~ Signed [facility] Work Phone: [phone]) 577-939702-07-[address] Iverson [facility] November 04, 2022 11:44am Note Date/Time November 04, 2022 1 1:44am [facility] Medical Records Department [address] [place] [address] Consultation - Nephrology 11/04/22 1139 MR#: [id number] Acct: [id number] Name: GRACIE BANUELOS Rep #:[id number] : 1965 57 From: Courtney sanders MD PCP: SOILA EASTON, WARNING COORDINATION METEOROLOGIST-C Status:ADM IN Location: ICU CVICU20 3-1 Assessment & Plan Assessment/Plan (1) Acute kidney injury: PLAN: Acute renal failure. Prior to admission at [facility], at the time of admission at [facility] creatinine was normal. She was subsequently transferredto [facility]. Discharge creatinine was 1.5. Urine analysis over there was fairly benign. She did receive vancomycin and Zosyn. I see a vancomycin trough of 17. Possible she might have sustained ATN. She is admitted here with a creatinine of 2.0. She was started on Bactrim sinceshe had significant diarrhea from Augmentin. Currently has a Frankel catheter, obstructive disease unlikely. We will check repeat urine analysis. Most likelythis increase in creatinine is related to Bactrim. Discussed with primary attending. Today is the last dose of Bactrim. Hyperkalemia. Again could be mediated by Bactrim. She is also somewhat acidotic. Add oral bicarbonate. I will hold IV fluids due to her significant respiratory distress. She is getting a CT chest and abdomen in view of respiratory distress and worsening leukocytosis. If there is no pulmonary edema on CT chest, we may consider resuming IV fluids. She did have significant diarrhea prior to admission to [facility]. HPI Consult Data Date of Consult: 11/04/22 HPI Narrative Reason for Consultation: Acute renal failure HPI Narrative: GRACIE BANUELOS, is a 57 F who presents to the hospital with severe diarrhea. Nephrology on consultation for acute renal failure. No prior kidney disease. Baseline creatinine was normal. She was initially admitted to [facility] followed by [facility]. Admission diagnosis was orbital cellulitis. Was seen by ophthalmology at [facility] as well. Admission creatinine was normal. Discharge creatinine was around 1.4-1.5. She did receive vancomycin and Zosyn, was discharged on Augmentin. Apparently had severe diarrhea from Augmentin hence this was switched to Bactrim. Overall orbital cellulitis has improved. anca panel negative. Currently has a Frankel catheter. Urine output is present. In somewhat significant respiratory distress today. WBC count has increased significantly. Getting a CT chest abdomen. [facility] Medical History Abdominal pain Alcohol abuse Alcoholic hepatitis Anemia Anxiety and depression Arthritis Asthma Benign hypertension Chronic pancreatitis COPD (chronic obstructive pulmonary disease) Diarrhea GERD (gastroesophageal reflux disease) History of back problems HPV (human papilloma virus) infection Nicotine dependence, cigarettes, uncomplicated Tobacco abuse Unintentional weight loss Home Medications cholecalciferol (vitamin D3) 50 mcg (2,000 unit) capsule 50 mcg PO DAILY SUPPLEMENT 12/29/18 [History Last Taken 10/31/22] pantoprazole 40 mg tablet,delayed release 40 mg PO DAILY GERD 08/12/20 [History Last Taken 10/31/22] albuterol sulfate 90 mcg/actuation aerosol inhaler (Ventolin HFA) 2 puff inhalation Q4H PRN shortness of breath or wheezing #18 grams 11/14/20 [Rx Last Taken Unknown] aripiprazole 5 mg tablet (Abilify) 5 mg PO DAILY mood 01/22/21 [History Last Taken 10/31/22] hydroxyzine pamoate 25 mg capsule 25 mg PO Q6H PRN PRN Itching 06/12/21 [History Last Taken 10/31/22] mirtazapine 45 mg tablet 45 mg PO QHS sleep 01/16/22 [History Last Taken 10/31/22] amlodipine 2.5 mg tablet 2.5 mg PO DAILY BP 11/01/22 [History Last Taken Unknown] erythromycin 5 mg/gram (0.5 %) eye ointment 0.5 inch RIGHT EYE Q6H antibiotic 11/01/22 [History Last Taken Unknown] egoqwx-tspyfmxt-bdcylhw 24,000-76,000-120,000 unit capsule,delayed rel (Creon) 1cap PO TIDCM Check with primary doctor 11/01/22 [History Last Taken 10/31/22] loperamide 2 mg capsule 2 mg PO Q4H PRN PRN Diarrhea 11/01/22 [History Last Taken Unknown] polyvinyl alcohol 1.4 % eye drops 2 drp ophthalmic (eye) Q6H eye infection 11/01/22 [History Last Taken 11/01/22] simvastatin 20 mg tablet 20 mg PO QHS cholesterol 11/01/22 [History Last Taken 10/31/22] sulfamethoxazole 800 mg-trimethoprim 160 mg tablet 1 tab PO BID antibiotic 11/01/22 [History Last Taken 11/01/22] Allergy/AdvReac Type Severity Reaction Status Date / Time Penicillins Allergy Hives Verified 11/01/22 19:37 hydrocodone [From Bode] AdvReac Itching Verified 11/01/22 19:37 Family History Mother Diabetes Hypertension Heart disease High cholesterol Arthritis Thyroid disorder Brother Hypertension Sister Cancer cervical Thyroid disorder Father Kidney disease Daughter Thyroid disorder Surgical History History of appendectomy History of colonoscopy History of tubal ligation Social History Smoking Status: Former smoker quit date: 02/20/18 pack-years: 75 Tobacco: How many years used: 30 second hand exposure: Yes alcohol intake: current alcohol intake frequency: 3 or more drinks per day Alcohol type: beer substance use type: does not use caffeine: Yes ROS ROS Narrative Positive for dyspnea negative otherwise. Physical Exam Narrative Alert awake oriented x 3 respiratory distress no pallor no icterus no JVD s1s2 no murmurs lungs clear abdomen soft no organomegaly no edema no cyanosis frankel + Lab / Micro Data Result Diagrams: 11/04/22 04:50 11/04/22 08:27 Labs: Laboratory Results - last 24 hr 11/04/22 04:50: WBC 27.4 H, RBC 3.43 L, Hgb 9.3 L, Hct 29.3 L, MCV 85.4, MCH 27.1, MCHC 31.7 L, RDW Std Deviation 48.6 H, RDW Coeff of Min 15.4 H, Plt Count 362, MPV 9.8, Immature Gran % (Auto) 2.300 H, Neut % (Auto) 81.2 H, Lymph % (Auto) 5.6 L, Kenedy % (Auto) 4.6, Eos % (Auto) 5.9 H, Baso % (Auto) 0.4, AbsoluteNeuts (auto) 22.2 H, Absolute Lymphs (auto) 1.54, Nucleated RBC % 0, Anisocytosis 1+ 11/04/22 08:27: Sodium 137, Potassium 5.3 H, Chloride 114 H, Carbon Dioxide 16.0L, Anion Gap 7, BUN 27 H, Creatinine 2.16 H, Estim Creat Clear Calc 23.20, Est GFR (MDRD) Af Amer 30 L, Est GFR (MDRD) Non-Af 25 L, BUN/Creatinine Ratio 12.5, Glucose 129 H, Calcium 8.8 Micro: Microbiology 11/03/22 07:40 Mucosa - Nasopharyngeal Respiratory Panel (PCR) - Final Rhythm Strip Rhythm Strip: Sinus Rhythm Rate: 99 Ectopy: None 11/04/22 1144 <Electronically signed by Courtney Iverson MD> Cosigner Signature (if applicable): CC: WARNING COORDINATION METEOROLOGIST-C Ani Eduardo; WARNING COORDINATION METEOROLOGIST-C SOILA EASTON; Dr. Ciarra Ross MD; Dr. Freddie Perdue MD; Dr. Gonzalo Sebastian DO; Dr. Courtney Iverson MD; Dr. Olivier Coffman MD; Dr. Lisa Ochoa MD; Dr. Dieter Harrison MD~ Signed [facility] Work Phone: [phone]) 387-521002-07-[address] Sebastian [facility] November 04, 2022 10:07am Note Date/Time November 04, 2022 7 :12am [facility] Medical Records Department [address] [place] [address] Progress Note - Salon Leader 11/04/22 0709 MR#: [id number] Acct: [id number] Name: GRACIE BANUELOS Rep #:[id number] : 1965 57 From: Gonzalo Sebastian DO PCP: CARMEN STAHL Status:ADM IN Location: ICU CVICU20 3-1 Assessment & Plan Assessment/Plan (1) Stage 3 severe COPD by GOLD classification: PLAN: Plan RECOMMENDATIONS: 1. Continue 2 L/min of supplemental oxygen per baseline. 2. Continue bronchodilators. 3. Continue outpatient antimicrobials to address previously diagnosed periorbital cellulitis. 4. Continue aggressive medical management of anxiety. Continue BuSpar and as needed Ativan. 5. Encourage incentive spirometer use and mobilize patient as tolerated. 6. Given that the patient is at her baseline from a pulmonary perspective, we will sign off. Please call with any additional questions. IMPRESSIONS: 1. Acute on chronic hypoxemic respiratory failure The patient was transferred to the medical intensive care unit after becoming increasingly hypoxic with increased work of breathing, likely precipitated by anacute panic attack/generalized anxiety disorder. The patient has known obstructive lung disease and is already on triple therapy inhaler regimen on an outpatient basis. She does have a baseline 2 L/min oxygen requirement. There does not appear to be any acute cardiopulmonary process on chest imaging. The patient has known air trapping on her PFTs and will be prone to respiratory decompensation if she experiences future panic attacks. I agree with continuingscheduled bronchodilators as ordered. Continue BuSpar and as needed Ativan to address underlying anxiety. 2. Diarrheal illness Unclear etiology. Defer further work-up and management to hospitalist. 3. Acute kidney injury Likely secondary to intravascular volume depletion/prerenal etiology in the setting of diarrhea. Continue to monitor urine output. No current indication for renal replacement therapy. 4. Recent hospitalization for periorbital cellulitis/bipolar disorder/depression/anxiety/chronic pancreatitis Complicates care, management, recovery and prognosis. Continue home medicationsas indicated. This note was generated with [employer] dictation software. It may contain incorrectwords, spelling, and punctuation that were not noted in checking the note beforesigning. Subjective Subjective The patient was seen and examined at the bedside this morning. Events from the last 24 hours have been reviewed. The patient is currently afebrile, hemodynamically stable and maintaining appropriate oxygen saturations on her baseline 2 L/min via nasal cannula. The patient is currently documented to be overall net +9.3 L for the hospitalization. Objective Data Objective Data The patient's most recent lab work, culture data and imaging studies have all been personally reviewed. Infectious work-up has been unrevealing to date. Vital Signs: Vital Signs Temp Pulse Resp BP Pulse Ox O2 Del Method O2 Flow Rate 98.8 F 116 H 20 H 169/95 H 96 Nasal Cannula 2 11/04/22 04:00 11/04/22 04:00 11/04/22 04:00 11/04/22 04:00 11/04/22 04:00 11/04/22 04:00 11/04/22 04:00 FiO2 30 11/03/22 22:24 Oxygen Flow Rate (L/min) 2 Oxygen Delivery Method Nasal Cannula Weight: 137 lb 9.095 oz Body Mass Index (BMI) 23.7 Intake & Output: Intake and Output for Last 24 Hours 11/02/22 11/03/22 11/04/22 23:59 23:59 23:59 Intake Total 7461.42 / 7461.42 2556.0 / 2556.0 791.25 / 791.25 Output Total 800 / 800 1000 / 1000 650 / 650 Balance 6661.42 / 6661.42 1556.0 / 1556.0 141.25 / 141.25 Lab / Micro Data Attestation: I reviewed the patient's lab results. Result Diagrams: 11/04/22 04:50 11/04/22 08:27 Labs: Laboratory Results - last 24 hr 11/04/22 04:50: WBC 27.4 H, RBC 3.43 L, Hgb 9.3 L, Hct 29.3 L, MCV 85.4, MCH 27.1, MCHC 31.7 L, RDW Std Deviation 48.6 H, RDW Coeff of Min 15.4 H, Plt Count 362, MPV 9.8, Immature Gran % (Auto) 2.300 H, Neut % (Auto) 81.2 H, Lymph % (Auto) 5.6 L, Kenedy % (Auto) 4.6, Eos % (Auto) 5.9 H, Baso % (Auto) 0.4, AbsoluteNeuts (auto) 22.2 H, Absolute Lymphs (auto) 1.54, Nucleated RBC % 0, Anisocytosis 1+ Micro: Microbiology 11/03/22 07:40 Mucosa - Nasopharyngeal Respiratory Panel (PCR) - Final 11/02/22 09:15 Stool Stool Lactoferrin - Final 11/02/22 09:15 Stool Stool Occult Blood (AGNIESZKA) - Final Rhythm Strip Rhythm Strip: Sinus Rhythm Rate: 99 Ectopy: None Physical Exam Const alert and no apparent distress General Appearance: cooperative HEENT normocephalic and head/scalp atraumatic Eyes PERRL, EOMs intact bilaterally and conjunctivae normal Neck supple General: trachea midline Chest inspection of chest normal Resp normal respiratory effort Auscultation: diminished lung sounds; Negative for rales, rhonchi or wheezes Cardio regular rate and regular rhythm GI normal to inspection, nondistended, normoactive bowel sounds Extremity no clubbing, cyanosis or edema Skin no rashes or lesions noted Neuro oriented x3, CN's II-XII intact bilaterally and moves all extremities Psych cooperative and affect normal Charges/Coding Visit Charges Inpatient E&M: 27043 Subs Hosp L2 11/04/22 1007 <Electronically signed by Gonzalo Sebastian DO> Cosigner Signature (if applicable): CC: ~ Signed [facility] Work Phone: [phone]) 219-294402-06-[address] Bonilla [facility] November 03, 2022 3:59pm Note Date/Time November 03, 2022 3 :06pm [facility] Medical Records Department [address] [place] [address] Progress Note - Hospitalist 11/03/22 1501 MR#: [id number] Acct: [id number] Name: GRACIE BANUELOS Rep #:[id number] : 1965 57 From: Anastacia Bonilla MD PCP: CARMEN STAHL Status:ADM IN Location: ICU CVICU20 3-1 Subjective Subjective Patient seen and examined. She had no active complaints and had an uneventful night. Review of systems is otherwise negative. She has remained hemodynamicallystable. She was transferred emergently to the ICU on account of severe respiratory distress. She was found to be tachycardic, with increased use of respiratory muscles. She said she was having severe anxiety attack.She feels much better today. Review of systems is otherwise negative. CXR showed left lower lobe infiltrate. Objective Data Objective Data Vital Signs: Vital Signs Temp Pulse Resp BP Pulse Ox O2 Del Method O2 Flow Rate 99.7 F H 101 H 24 H 136/77 H 95 Nasal Cannula 2 11/03/22 14:00 11/03/22 14:00 11/03/22 14:00 11/03/22 14:00 11/03/22 14:00 11/03/22 14:30 11/03/22 14:30 FiO2 30 11/03/22 01:08 Oxygen Flow Rate (L/min) 2 Oxygen Delivery Method Nasal Cannula Weight: 137 lb 9.095 oz Body Mass Index (BMI) 23.7 Intake & Output: Intake and Output for Last 24 Hours 11/01/22 11/02/22 11/03/22 23:59 23:59 23:59 Intake Total 1000 / 1000 7461.42 / 7461.42 1528.5 / 1528.5 Output Total 800 / 800 600 / 600 Balance 1000 / 1000 6661.42 / 6661.42 928.5 / 928.5 Lab / Micro Data Result Diagrams: 11/03/22 05:06 11/03/22 05:06 Labs: Laboratory Results - last 24 hr 11/02/22 20:00: WBC 19.3 H, RBC 3.95 L, Hgb 10.7 L, Hct 34.1 L, MCV 86.3, MCH 27.1, MCHC 31.4 L, RDW Std Deviation 45.7 H, RDW Coeff of Min 14.4, Plt Count 372, MPV 9.6, Immature Gran % (Auto) 1.100 H, Neut % (Auto) 74.5 H, Lymph % (Auto) 11.6 L, Kenedy % (Auto) 6.9, Eos % (Auto) 5.0, Baso % (Auto) 0.9, Absolute Neuts (auto) 14.4 H, Absolute Lymphs (auto) 2.24, Nucleated RBC % 0 11/02/22 20:00: Sodium 138, Potassium 4.2, Chloride 111 H, Carbon Dioxide 18.0 L, Anion Gap 9, BUN 15, Creatinine 1.80 H, Estim Creat Clear Calc 27.84, Est GFR (MDRD) Af Amer 37 L, Est GFR (MDRD) Non-Af 31 L, BUN/Creatinine Ratio 8.3 L, Glucose 263 H, Calcium 8.3 L, Total Bilirubin 0.20, AST 31, ALT 29, Alkaline Phosphatase 114, Troponin I High Sens 92 H, Total Protein 7.3, Albumin 2.8 L, Globulin 4.5 H, Albumin/Globulin Ratio 0.6 L 11/03/22 05:06: WBC 15.3 H, RBC 3.13 L, Hgb 8.6 L, Hct 26.7 L, MCV 85.3, MCH 27.5, MCHC 32.2, RDW Std Deviation 45.1 H, RDW Coeff of Min 14.5, Plt Count 271, MPV 9.7, Immature Gran % (Auto) 1.200 H, Neut % (Auto) 94.5 H, Lymph % (Auto) 2.2 L, Kenedy % (Auto) 1.9, Eos % (Auto) 0.1, Baso % (Auto) 0.1, Absolute Neuts (auto) 14.5 H, Absolute Lymphs (auto) 0.34 L, Nucleated RBC % 0 11/03/22 05:06: Sodium 139, Potassium 3.9, Chloride 113 H, Carbon Dioxide 18.0 L, Anion Gap 8, BUN 18, Creatinine 2.01 H, Estim Creat Clear Calc 24.93, Est GFR (MDRD) Af Amer 33 L, Est GFR (MDRD) Non-Af 27 L, BUN/Creatinine Ratio 9.0 L, Glucose 146 H, Calcium 8.0 L, Total Bilirubin 0.20, AST 36, ALT 31, Alkaline Phosphatase 97, Total Protein 5.7 L, Albumin 2.2 L, Globulin 3.5, Albumin/Globulin Ratio 0.6 L Micro: Microbiology 11/03/22 07:40 Mucosa - Nasopharyngeal Respiratory Panel (PCR) - Final 11/02/22 09:15 Stool Stool Lactoferrin - Final 11/02/22 09:15 Stool Stool Occult Blood (AGNIESZKA) - Final ABG Data ABG results: ABG 11/02/22 11/02/22 19:59 23:05 Specimen Type ART ART Sample Site R Radial R Radial pH 7.14 L* 7.33 L Bicarbonate Actual 15.9 L 18.3 L Total CO2 17 19 Base Excess -13 L -8 L O2 Saturation 91 L 98 O2 % 100 45 ABG pCO2 46.9 H 34.6 L ABG pO2 80 111 H Sergei Test Positive Positive Respiration Rate 12 O2 Delivery Device NRB BiPAP POC PEEP 8 Crit Call To/Read Back Yes Radiography Diagnostic Testing: Radiology Impression Chest X-Ray 11/02/22 19:56 IMPRESSION: Lower lobe infiltrate suggesting pneumonia. Electronically Signed: Carl Zarco MD at 20:11 EST , Rhythm Strip Rhythm Strip: Sinus Rhythm Rate: 99 Ectopy: None Physical Exam Const alert, oriented x3 and no apparent distress HEENT head/scalp atraumatic, moist oral mucous membranes and oropharynx normal Head and Scalp: normocephalic Mouth: oral and palatal mucosa normal Eyes PERRL, EOMs intact bilaterally and conjunctivae normal Neck no lymphadenopathy and supple Resp Resp Narrative: diminished breath sounds bibasally, no wheezes or crackles. on 2L of oxygen by nasal canula. Cardio regular rate, regular rhythm, S1 normal heart sound and S2 normal heart sound GI normal to inspection, nondistended, normoactive bowel sounds, soft to palpation,non-tender and non-distended Extremity normal to inspection, full ROM and no clubbing, cyanosis or edema Neuro oriented x3, CN's II-XII intact bilaterally and moves all extremities Sensorium / Orientation: awake and alert Motor Exam: strength 5/5 throughout Psych affect normal Assessment & Plan Assessment/Plan (1) Nausea & vomiting: (2) Diarrhea: PLAN: Plan #Acute renal injury due to volume depletion due to acute diarrhea * Cr on admission was 2.05; hydrate gently with iVF * renal USG: * nephrology on board * #Acute diarrhea * C diff ruled ou8t * on immodium. * stool studies pending * #Community acquired pneumonia * was transferred emergently to ICU due to acute respiratory distress * CXR showed evidence of pneumonia * on Iv zosyn * critical care on board. * #COPD: * breathing treatment with bronchodilators. * Titrate oxygen to maintain sats > 90% * not in exacerbation #Non anion gap metabolic acidosis due to diarrhea * resolved. * #Recent right orbital cellulitis * on bactrim, with end date of 11/04. * on erythromycin eye drops. * #Bipolar disorder and depression: on aripiprazole and buspar as well as remeron. #Chronic pancreatitis: on Creon. #Hypertension:on amlodipine DVT prophylaxis: lovenox Charges/Coding Visit Charges Inpatient E&M: 77494 Subs Hosp L3 Reason for Visit Reason for Visit: Diagnoses Chronic obstructive pulmonary disease, unspecified (11/01/22) Acute kidney failure, unspecified (11/01/22) Diarrhea, unspecified (11/01/22) 11/03/22 2546 <Electronically signed by Anastacia Bonilla MD> Cosigner Signature (if applicable): CC: ~ Signed [facility] Work Phone: 1(163) [phone] Sebastian [facility] November 03, 2022 8:27am Note Date/Time November 03, 2022 7 :12am [facility] Medical Records Department [address] [place] [address] Consultation - Salon Leader 11/03/22 0710 MR#: [id number] Acct: [id number] Name: GRACIE BANUELOS Rep #:[id number] : 1965 57 From: Gonzalo Sebastian DO PCP: CARMEN STAHL Status:ADM IN Location: ICU CVICU20 3-1 Assessment & Plan Assessment/Plan (1) Stage 3 severe COPD by GOLD classification: PLAN: Plan RECOMMENDATIONS: 1. Continue 2 L/min of supplemental oxygen per baseline. 2. Continue bronchodilators. 3. Continue outpatient antimicrobials to address previously diagnosed periorbital cellulitis. 4. Discontinue IV steroids. 5. Recommend aggressive medical management of anxiety. Continue BuSpar. Will add as needed Ativan as well. 6. Encourage incentive spirometer use and mobilize patient as tolerated. 7. The patient is medically stable for transfer out of the intensive care unit. IMPRESSIONS: 1. Acute on chronic hypoxemic respiratory failure The patient was transferred to the medical intensive care unit after becoming increasingly hypoxic with increased work of breathing, likely precipitated by anacute panic attack/generalized anxiety disorder. The patient has known obstructive lung disease and is already on triple therapy inhaler regimen on an outpatient basis. She does have a baseline 2 L/min oxygen requirement. There does not appear to be any acute cardiopulmonary process on chest imaging. The patient has known air trapping on her PFTs and will be prone to respiratory decompensation if she experiences future panic attacks. I agree with continuingscheduled bronchodilators as ordered. Continue BuSpar to address underlying anxiety. In addition, will add as needed Ativan to her anxiolytic regimen. 2. Diarrheal illness Unclear etiology. Defer further work-up and management to hospitalist. 3. Acute kidney injury Likely secondary to intravascular volume depletion/prerenal etiology in the setting of diarrhea. Continue supplemental IV fluid hydration. Continue to monitor urine output. No current indication for renal replacement therapy. 4. Recent hospitalization for periorbital cellulitis/bipolar disorder/depression/anxiety/chronic pancreatitis Complicates care, management, recovery and prognosis. Continue home medicationsas indicated. This note was generated with [employer] dictation software. It may contain incorrectwords, spelling, and punctuation that were not noted in checking the note beforesigning. HPI Consult Data Date of Consult: 11/03/22 HPI Narrative Reason for Consultation: Respiratory failure HPI Narrative: The patient is a 57-year-old female, with a history as outlined below, who presented to the emergency department on November 01 with nausea, vomiting and diarrhea. The patient has a known history of COPD, chronic hypoxemic respiratory failure and tobacco dependency. She is currently followed by Dr. Perdue in the pulmonary medicine clinic. The patient is supposed to be utilizing Trelegy Ellipta daily as her maintenance inhaler medication. The patient was recently admitted in [place] for periorbital cellulitis. The patient reported to me that she has not smoked a cigarette for approximately 1 month. She utilizes 2 L/min of supplemental oxygen at her baseline. On presentation to the emergency department, the patient was noted to be afebrile hemodynamically stable. She was initially documented to be saturating 92% on room air at rest. Initial laboratory evaluation revealed a white blood cell count of 12,000. Chemistry profile was notable for a sodium of 130, bicarbonate of 20 and creatinine of 2.05. The patient was initially admitted to the medical surgical floor where she was maintained on supplemental IV fluids and as needed bronchodilators therapy. On the evening of November 02, a rapid response team was called as the patient was noted to be cyanotic in appearance with worsening hypoxemia. The patient was subsequently placed on BiPAP and transferred to the medical intensive care unit. She was treated with IV Solu-Medrol, Ativan and aerosol treatments. [facility] Medical History Abdominal pain Alcohol abuse Alcoholic hepatitis Anemia Anxiety and depression Arthritis Asthma Benign hypertension Chronic pancreatitis COPD (chronic obstructive pulmonary disease) Diarrhea GERD (gastroesophageal reflux disease) History of back problems HPV (human papilloma virus) infection Nicotine dependence, cigarettes, uncomplicated Tobacco abuse Unintentional weight loss Home Medications cholecalciferol (vitamin D3) 50 mcg (2,000 unit) capsule 50 mcg PO DAILY SUPPLEMENT 12/29/18 [History Last Taken 10/31/22] pantoprazole 40 mg tablet,delayed release 40 mg PO DAILY GERD 08/12/20 [History Last Taken 10/31/22] albuterol sulfate 90 mcg/actuation aerosol inhaler (Ventolin HFA) 2 puff inhalation Q4H PRN shortness of breath or wheezing #18 grams 11/14/20 [Rx Last Taken Unknown] aripiprazole 5 mg tablet (Abilify) 5 mg PO DAILY mood 01/22/21 [History Last Taken 10/31/22] hydroxyzine pamoate 25 mg capsule 25 mg PO Q6H PRN PRN Itching 06/12/21 [History Last Taken 10/31/22] mirtazapine 45 mg tablet 45 mg PO QHS sleep 01/16/22 [History Last Taken 10/31/22] amlodipine 2.5 mg tablet 2.5 mg PO DAILY BP 11/01/22 [History Last Taken Unknown] erythromycin 5 mg/gram (0.5 %) eye ointment 0.5 inch RIGHT EYE Q6H antibiotic 11/01/22 [History Last Taken Unknown] mpgyba-kqdorofy-hlxmyhc 24,000-76,000-120,000 unit capsule,delayed rel (Creon) 1cap PO TIDCM Check with primary doctor 11/01/22 [History Last Taken 10/31/22] loperamide 2 mg capsule 2 mg PO Q4H PRN PRN Diarrhea 11/01/22 [History Last Taken Unknown] polyvinyl alcohol 1.4 % eye drops 2 drp ophthalmic (eye) Q6H eye infection 11/01/22 [History Last Taken 11/01/22] simvastatin 20 mg tablet 20 mg PO QHS cholesterol 11/01/22 [History Last Taken 10/31/22] sulfamethoxazole 800 mg-trimethoprim 160 mg tablet 1 tab PO BID antibiotic 11/01/22 [History Last Taken 11/01/22] Allergy/AdvReac Type Severity Reaction Status Date / Time Penicillins Allergy Hives Verified 11/01/22 19:37 hydrocodone [From Bode] AdvReac Itching Verified 11/01/22 19:37 Family History Mother Diabetes Hypertension Heart disease High cholesterol Arthritis Thyroid disorder Brother Hypertension Sister Cancer cervical Thyroid disorder Father Kidney disease Daughter Thyroid disorder Surgical History History of appendectomy History of colonoscopy History of tubal ligation Social History Smoking Status: Former smoker quit date: 02/20/18 pack-years: 75 Tobacco: How many years used: 30 second hand exposure: Yes alcohol intake: current alcohol intake frequency: 3 or more drinks per day Alcohol type: beer substance use type: does not use caffeine: Yes ROS ROS Narrative 10 systems reviewed with pertinent positives as noted in the HPI above. Physical Exam Const alert, oriented x3 and no apparent distress General Appearance: cooperative HEENT normocephalic and head/scalp atraumatic Eyes PERRL, EOMs intact bilaterally and conjunctivae normal Neck supple General: trachea midline Chest inspection of chest normal Resp normal respiratory effort Auscultation: diminished lung sounds; Negative for rales, rhonchi or wheezes Cardio regular rate and regular rhythm GI normal to inspection, nondistended, normoactive bowel sounds Extremity no clubbing, cyanosis or edema Skin no rashes or lesions noted Neuro oriented x3, CN's II-XII intact bilaterally and moves all extremities Psych cooperative Mood & Affect: anxious Lab / Micro Data Result Diagrams: 11/03/22 05:06 11/03/22 05:06 Labs: Laboratory Results - last 24 hr 11/02/22 05:20: Sodium 135 L, Potassium 3.8, Chloride 107, Carbon Dioxide 20.0 L, Anion Gap 8, BUN 13, Creatinine 1.99 H, Estim Creat Clear Calc 25.18, Est GFR (MDRD) Af Amer 33 L, Est GFR (MDRD) Non-Af 27 L, BUN/Creatinine Ratio 6.5 L, Glucose 85, Calcium 7.9 L, Total Bilirubin 0.20, AST 14 L, ALT 24, Alkaline Phosphatase 86, Total Protein 5.8 L, Albumin 2.3 L, Globulin 3.5, Albumin/Globulin Ratio 0.7 L 11/02/22 20:00: WBC 19.3 H, RBC 3.95 L, Hgb 10.7 L, Hct 34.1 L, MCV 86.3, MCH 27.1, MCHC 31.4 L, RDW Std Deviation 45.7 H, RDW Coeff of Min 14.4, Plt Count 372, MPV 9.6, Immature Gran % (Auto) 1.100 H, Neut % (Auto) 74.5 H, Lymph % (Auto) 11.6 L, Kenedy % (Auto) 6.9, Eos % (Auto) 5.0, Baso % (Auto) 0.9, Absolute Neuts (auto) 14.4 H, Absolute Lymphs (auto) 2.24, Nucleated RBC % 0 11/02/22 20:00: Sodium 138, Potassium 4.2, Chloride 111 H, Carbon Dioxide 18.0 L, Anion Gap 9, BUN 15, Creatinine 1.80 H, Estim Creat Clear Calc 27.84, Est GFR (MDRD) Af Amer 37 L, Est GFR (MDRD) Non-Af 31 L, BUN/Creatinine Ratio 8.3 L, Glucose 263 H, Calcium 8.3 L, Total Bilirubin 0.20, AST 31, ALT 29, Alkaline Phosphatase 114, Troponin I High Sens 92 H, Total Protein 7.3, Albumin 2.8 L, Globulin 4.5 H, Albumin/Globulin Ratio 0.6 L 11/03/22 05:06: WBC 15.3 H, RBC 3.13 L, Hgb 8.6 L, Hct 26.7 L, MCV 85.3, MCH 27.5, MCHC 32.2, RDW Std Deviation 45.1 H, RDW Coeff of Min 14.5, Plt Count 271,MPV 9.7, Immature Gran % (Auto) 1.200 H, Neut % (Auto) 94.5 H, Lymph % (Auto) 2.2 L, Kenedy % (Auto) 1.9, Eos % (Auto) 0.1, Baso % (Auto) 0.1, Absolute Neuts (auto) 14.5 H, Absolute Lymphs (auto) 0.34 L, Nucleated RBC % 0 11/03/22 05:06: Sodium 139, Potassium 3.9, Chloride 113 H, Carbon Dioxide 18.0 L, Anion Gap 8, BUN 18, Creatinine 2.01 H, Estim Creat Clear Calc 24.93, Est GFR (MDRD) Af Amer 33 L, Est GFR (MDRD) Non-Af 27 L, BUN/Creatinine Ratio 9.0 L, Glucose 146 H, Calcium 8.0 L, Total Bilirubin 0.20, AST 36, ALT 31, Alkaline Phosphatase 97, Total Protein 5.7 L, Albumin 2.2 L, Globulin 3.5, Albumin/GlobulinRatio 0.6 L Micro: Microbiology 11/02/22 09:15 Stool Stool Lactoferrin - Final 11/02/22 09:15 Stool Stool Occult Blood (AGNIESZKA) - Final ABG Data ABG results: ABG 11/02/22 11/02/22 19:59 23:05 Specimen Type ART ART Sample Site R Radial R Radial pH 7.14 L* 7.33 L Bicarbonate Actual 15.9 L 18.3 L Total CO2 17 19 Base Excess -13 L -8 L O2 Saturation 91 L 98 O2 % 100 45 ABG pCO2 46.9 H 34.6 L ABG pO2 80 111 H Sergei Test Positive Positive Respiration Rate 12 O2 Delivery Device NRB BiPAP POC PEEP 8 Crit Call To/Read Back Yes Rhythm Strip Rhythm Strip: Sinus Rhythm Rate: 99 Ectopy: None Radiology Impression Chest X-Ray 11/02/22 19:56 IMPRESSION: Lower lobe infiltrate suggesting pneumonia. Electronically Signed: Carl Zarco MD at 20:11 EST , Charges/Coding Visit Charges Inpatient E&M: 44254 Init Hosp L3 11/03/22 0827 <Electronically signed by Gonzalo Sebastian DO> Cosigner Signature (if applicable): CC: WARNING COORDINATION METEOROLOGISTMiriam Eduardo; WARNING COORDINATION METEOROLOGIST-C SOILA EASTON; Dr. Ciarra Ross MD; Dr. Freddie Perdue MD; Dr. Gonzalo Sebastian DO; Dr. Olivier Coffman MD; Dr. Lisa Ochoa MD; Dr. Dieter Harrison MD~ Signed [facility] Work Phone: [phone]) 647-659402-05-[address] Ross [facility] November 02, 2022 9:51pm Note Date/Time November 02, 2022 9 :10pm [facility] Medical Records Department [facility] [place] [address] Progress Note 11/02/222107 MR#: [id number] Acct: [id number] Name: GRACIE BANUELOS Rep #:[id number] : 1965 57 From: Ciarra Ross MD PCP: SOILA EASTON, WARNING COORDINATION METEOROLOGIST-C Status:ADM IN Location: ICU CVICU20 3-1 Progress Note Seen patient in ICU. She is in severe respiratory distress, tachypneic, increased used of accessory muscles of respiratory. Patient states she is having severe anxiety attack Lung exam: Significant wheezes Given IV solumedrol and IV ativan 0.5mg x1 Started on Bipap, appears to be calm DC Duoneb, Ipratropium breathing treatments Q2h for 2 treatments, then Q4H Repeat ABG in 1 hour CXR done this evening showed left lower infiltrate Patient is on Bactrim for orbital cellulitis; will add IV Zosyn for now. 11/02/222150 <Electronically signed by Ciarra Ross MD> Ciarra Ross MD Cosigner Signature (if applicable): CC: ~ Signed [facility] Work Phone: [phone]) 760-367702-05-[address] Fatima [facility] November 02, 2022 8:23pm Note Date/Time November 02, 2022 8 :19pm [facility] Medical Records Department [address] [place] [address] Progress Note - Hospitalist 11/02/222014 MR#: [id number] Acct: [id number] Name: GRACIE BANUELOS Rep #:[id number] : 1965 57 From: Mahamed Fatima DO PCP: SOILA EASTON, WARNING COORDINATION METEOROLOGIST-C Status:ADM IN Location: ICU CVICU20 3-1 Hospitalist Note Rapid response team called due to hypoxia and appearing edwards. Nursing with check on the patient and noted that she was very listless, frothing at the mouthand appeared edwards. Pulse ox was noted to be in the 70s. Patient was put on a nonrebreather and her mentation improved and pulse ox went to the 90s. On exam,patient had diminished breath sounds throughout but no crackles. No lower extremity edema. Heart rate was tachycardic. Patient was moved to progressive care unit for further monitoring. Chest x-ray was personally reviewed and showed right lower lobe atelectasis. EKG was reviewed and shows some baseline artifact but appear to be sinus tachycardia. ABG performed and showed pH of 7.14, PCO2 of 46.9 and PO2 of 80. Consistent with metabolic acidosis but concomitant respiratory acidosis. Feel the patient's respiratory failure is probably due to her underlying lung disease and atelectasis. We will place her on BiPAP but also compounding this is a metabolic acidosis. Patient has been receiving IV fluids but does not appear to be volume overloaded. BMP is currently pending but will give the patient 2 liters of bicarb. Consult CCM. Transferred to the intensive care unitfor closer monitoring. Currently, the patient's vital signs are stable but given her acid-base imbalance, respiratory failure patient would be best observed in the ICU least overnight. Greater than 45 minutes of critical care time. Procedures Hospitalists Procedures: 50800 Critial Care 1st Hr 11/02/222022 <Electronically signed by Mahamed Fatima DO> Cosigner Signature (if applicable): CC: ~ Signed [facility] Work Phone: [phone]) 295-251802-05-[address] Ochoa [facility] November 02, 2022 12:07pm Note Date/Time November 02, 2022 1 2:07pm [facility] Medical Records Department [address] [place] [id number] Progress Note - Hospitalist 11/02/22 1156 MR#: [id number] Acct: [id number] Name: GRACIE BANUELOS Rep #:[id number] : 1965 57 From: Lisa Ochoa MD PCP: SOILA EASTON, WARNING COORDINATION METEOROLOGIST-C Status:ADM IN Location: [place] 251352-1 Subjective Subjective Reports still feeling little dehydrated and not eating well Objective Data Objective Data Vital Signs: Vital Signs Temp Pulse Resp BP Pulse Ox O2 Del Method 97.8 F 78 18 144/81 H 98 Room Air 11/02/22 09:04 11/02/22 09:04 11/02/22 09:04 11/02/22 09:04 11/02/22 09:04 11/02/22 09:04 Oxygen Delivery Method Room Air Weight: 61.4 kg Body Mass Index (BMI) 23.7 Intake & Output: Intake and Output for Last 24 Hours 10/31/22 11/01/22 11/02/22 23:59 23:59 23:59 Intake Total 1000 / 1000 4298.0 / 4298.0 Output Total 800 / 800 Balance 1000 / 1000 3498.0 / 3498.0 Lab / Micro Data Result Diagrams: 11/02/22 05:20 11/02/22 05:20 Labs: Laboratory Results - last 24 hr 11/01/22 20:32: Sodium 130 L, Potassium 3.9, Chloride 100, Carbon Dioxide 20.0 L, Anion Gap 10, BUN 13, Creatinine 2.05 H, Estim Creat Clear Calc 24.44, Est GFR(MDRD) Af Amer 32 L, Est GFR (MDRD) Non-Af 26 L, BUN/Creatinine Ratio 6.3 L, Glucose 95, Calcium 8.2 L 11/01/22 22:28: WBC 12.5 H, RBC 3.80 L, Hgb 10.2 L, Hct 31.9 L, MCV 83.9, MCH 26.8 L, MCHC 32.0, RDW Std Deviation 42.8, RDW Coeff of Min 14.0, Plt Count 278,MPV 9.8, Immature Gran % (Auto) 1.400 H, Neut % (Auto) 66.4, Lymph % (Auto) 16.8L, Kenedy % (Auto) 11.3 H, Eos % (Auto) 3.4, Baso % (Auto) 0.7, Absolute Neuts (auto) 8.3 H, Absolute Lymphs (auto) 2.10, Nucleated RBC % 0 11/02/22 05:20: WBC 10.0, RBC 3.48 L, Hgb 9.4 L, Hct 29.5 L, MCV 84.8, MCH 27.0,MCHC 31.9 L, RDW Std Deviation 43.5, RDW Coeff of Min 14.0, Plt Count 289, MPV 10.1, Immature Gran % (Auto) 0.900, Neut % (Auto) 62.9, Lymph % (Auto) 17.1 L, Kenedy % (Auto) 13.2 H, Eos % (Auto) 5.3 H, Baso % (Auto) 0.6, Absolute Neuts (auto) 6.3, Absolute Lymphs (auto) 1.71, Nucleated RBC % 0 11/02/22 05:20: Sodium 135 L, Potassium 3.8, Chloride 107, Carbon Dioxide 20.0 L, Anion Gap 8, BUN 13, Creatinine 1.99 H, Estim Creat Clear Calc 25.18, Est GFR (MDRD) Af Amer 33 L, Est GFR (MDRD) Non-Af 27 L, BUN/Creatinine Ratio 6.5 L, Glucose 85, Calcium 7.9 L, Total Bilirubin 0.20, AST 14 L, ALT 24, Alkaline Phosphatase 86, Total Protein 5.8 L, Albumin 2.3 L, Globulin 3.5, Albumin/Globulin Ratio 0.7 L Rhythm Strip Rhythm Strip: Sinus Rhythm Rate: 99 Ectopy: None Physical Exam Narrative General: Alert, oriented, no apparent distress HEENT: Atraumatic, normocephalic Eyes: Anicteric, normal conjunctiva, extraocular movements grossly intact Neck: Supple Respiratory: Clear to auscultation bilaterally, normal respiratory effort Cardiovascular: Regular rate and rhythm GI: Nontender, no rebound, guarding, rigidity Extremities: No edema Musculoskeletal: Moving all extremities Neuro: No overt focal neurological deficits Skin: No rashes appreciated Psych: Cooperative Assessment & Plan Assessment/Plan (1) Acute kidney injury: (2) Diarrhea: PLAN: Plan 57-year-old female history of alcoholic hepatitis, COPD, GERD who presented to [facility] 11/01 with poor urinary output and flank pain for 1 day. She was recently discharged from [facility] after being transferred from [facility] with right orbital cellulitis for acute ophthalmology evaluation. Her stay was complicated by severe diarrhea and CHUY. She was on Augmentin and that was switched to Bactrim and had improvement in her CHUY. She was just discharged home 10/29. Since being home she has been trying to maintain hydration but her urine output has been decreasing and she has been having diarrhea. #Acute kidney injury, likely prerenal, secondary to volume depletion from acute diarrhea -Recently had similar presentation and was discharged on 10/29 -Creatinine on admission 2.05 -Given IV fluids, trend BMP -We will attempt to evaluate underlying cause for diarrhea I suspect this is whyshe is dehydrated -Slightly better today, we will decrease fluids to 100 -If does not continue to improve can consider further urine studies and kidney ultrasound #Acute diarrhea, acute C. difficile ruled out in the past several weeks -On Imodium as needed -Enteric panel pending -Does have slight downtrend in her hemoglobin, will obtain FOBT as well as stoollactoferrin/WBC and calprotectin as well as pH to assess for underlying etiology #COPD -Albuterol as needed #None anion gap metabolic acidosis secondary to acute diarrhea -Continue to monitor #Recent orbital cellulitis on the right -On Bactrim, last date will be 11/04. If kidney function does not improved can consider changing Bactrim Erythromycin application to the right eye #chronic medical conditions including bipolar disorder/depression/chronic pancreatitis//COPD, not in acute exacerbation/Hypertension These all complicates patient's care and recovery as well as management Continue on amlodipine hydroxyzine, Creon, mirtazapine, pantoprazole, simvastatin #DVT ppx: Heparin subcu Lisa Ochoa MD Time spent in the patient's overall evaluation,decision-making process, review of diagnostic data, adjustment of management, discussion with other providers, nursing nursing and ancillary staff involved in patient's care documentation, 30minutes Charges/Coding Visit Charges Inpatient E&M: 38689 Subs Hosp L2 11/02/22 1207 <Electronically signed by Lisa Ochoa MD> Cosigner Signature (if applicable): CC: ~ Signed [facility] Work Phone: [phone] 212-472002-05-2023 History and physical note Author Dr. Ross [facility] November 02, 2022 1:42am Note Date/Time November 01, 2022 1 0:21pm [facility] Medical Records Department [address] [place], [place] [address] [address] H&P Exam - Hospitalist 11/01/22 2221 MR#: [id number] Acct: [id number] Name: GRACIE BANUELOS Rep #:[id number] : 1965 57 From: Ciarra Ross MD PCP: SOILA EASTON, WARNING COORDINATION METEOROLOGIST-C Status:ADM IN [place] [facility] [id number] HPI - General General Date of Admission: 11/01/22 Date of Service: 11/01/22 Chief Complaint: Poor urine output, bilateral flank pain- 1 day HPI Narrative Cristina BANUELOS, is a 57 F who presents the above. Patient was recently discharged from [facility] after being transferred from [facility] with right orbital cellulitis for acute ophthalmology evaluation. Over the course ofhis stay in the [facility], patient developed severe diarrhea with resultantAKI. She was on Augmentin. Her Augmentin was switched to Bactrim and had CHUY improved. She was discharged home on 10/29/2022. Patient stated that since being at home, she has been drinking lots of water buther urine output has been decreasing. She noticed today that she has increased frequency but when she goes to the restroom, she had very little urine output. She also had associated bilateral flank. She denied any dizziness or palpitations or nausea or vomiting. She admits to frequent bowel movements about 3 times a day, watery. In the emergency room, her blood pressure is 100/83, heart rate 98, respiratory 16, temperature 97.1 F, oxygen sat 92% on room air. BC is 12.5, hemoglobin 10.2, platelets 278, sodium is 130, potassium 3.9, chloride 100, CO2 20, BUN 30,creatinine 2.05, previous creatinine in our system on 10/19/2022 was 0.62 PFSH Medical History Abdominal pain Alcohol abuse Alcoholic hepatitis Anemia Anxiety and depression Arthritis Asthma Benign hypertension Chronic pancreatitis COPD (chronic obstructive pulmonary disease) Diarrhea GERD (gastroesophageal reflux disease) History of back problems HPV (human papilloma virus) infection Nicotine dependence, cigarettes, uncomplicated Tobacco abuse Unintentional weight loss Home Medications cholecalciferol (vitamin D3) 50 mcg (2,000 unit) capsule 50 mcg PO DAILY SUPPLEMENT 12/29/18 [History Last Taken 10/31/22] pantoprazole 40 mg tablet,delayed release 40 mg PO DAILY GERD 08/12/20 [History Last Taken 10/31/22] albuterol sulfate 90 mcg/actuation aerosol inhaler (Ventolin HFA) 2 puff inhalation Q4H PRN shortness of breath or wheezing #18 grams 11/14/20 [Rx Last Taken Unknown] aripiprazole 5 mg tablet (Abilify) 5 mg PO DAILY mood 01/22/21 [History Last Taken 10/31/22] hydroxyzine pamoate 25 mg capsule 25 mg PO Q6H PRN PRN Itching 06/12/21 [History Last Taken 10/31/22] mirtazapine 45 mg tablet 45 mg PO QHS sleep 01/16/22 [History Last Taken 10/31/22] amlodipine 2.5 mg tablet 2.5 mg PO DAILY BP 11/01/22 [History Last Taken Unknown] erythromycin 5 mg/gram (0.5 %) eye ointment 0.5 inch RIGHT EYE Q6H antibiotic 11/01/22 [History Last Taken Unknown] eewehm-iifqfibh-nteonwi 24,000-76,000-120,000 unit capsule,delayed rel (Creon) 1cap PO TIDCM Check with primary doctor 11/01/22 [History Last Taken 10/31/22] loperamide 2 mg capsule 2 mg PO Q4H PRN PRN Diarrhea 11/01/22 [History Last Taken Unknown] polyvinyl alcohol 1.4 % eye drops 2 drp ophthalmic (eye) Q6H eye infection 11/01/22 [History Last Taken 11/01/22] simvastatin 20 mg tablet 20 mg PO QHS cholesterol 11/01/22 [History Last Taken 10/31/22] sulfamethoxazole 800 mg-trimethoprim 160 mg tablet 1 tab PO BID antibiotic 11/01/22 [History Last Taken 11/01/22] Allergy/AdvReac Type Severity Reaction Status Date / Time Penicillins Allergy Hives Verified 11/01/22 19:37 hydrocodone [From Bode] AdvReac Itching Verified 11/01/22 19:37 Family History Mother Diabetes Hypertension Heart disease High cholesterol Arthritis Thyroid disorder Brother Hypertension Sister Cancer cervical Thyroid disorder Father Kidney disease Daughter Thyroid disorder Surgical History History of appendectomy History of colonoscopy History of tubal ligation Social History Smoking Status: Former smoker quit date: 02/20/18 pack-years: 75 Tobacco: How many years used: 30 second hand exposure: Yes alcohol intake: current alcohol intake frequency: 3 or more drinks per day Alcohol type: beer substance use type: does not use caffeine: Yes ROS ROS Narrative Constitutional: Reports: Malaise, Weakness, Fatigue. Denies: Anorexia, Chills, Fever, Night Sweats, Weight Change Eyes: Denies: Blurred vision, Cataracts, Conjunctivae Inflammation, Pain, Redness, Vision Change HEENT: Denies: Difficulty Hearing, Difficulty Swallowing, Head Aches, Hearing Changes, Sinus Congestion, Sinus Drainage Cardiovascular: Denies: Chest Pain, Orthopnea, Palpitations Respiratory: Denies: Cough, Shortness of breath at rest, Sputum production Gastrointestinal: Diarrhea denies: Abdominal Pain, Nausea, Vomiting Genitourinary: Denies: Dysuria Musculoskeletal: Denies: Joint Pain, Joint stiffness, Joint swelling, Joint Tenderness Skin: Denies: Rash, Wounds Neurological: Denies: Numbness, Tingling, Focal weakness Vital Signs Vital Signs Vital Signs: 11/01/22 19:35 Temperature 97.1 F L Temperature Source Temporal Pulse Rate 98 Respiratory Rate 16 Blood Pressure 100/83 H Blood Pressure Mean 88 Pulse Ox 92 Oxygen Delivery Method Room Air Weight Weight: 58.967 kg Body Mass Index (BMI) 23.0 Physical Exam Narrative Physical exam: General: Alert, Oriented x3, Cooperative, moderately dehydrated, appears fair HEENT: Atraumatic, slight erythema in the right periorbital region, no edema Oral: Moist Mucosa Neck: Supple Lungs: Diminished to auscultation Cardiovascular: HS I+II, regular, no murmurs Abdomen: Bowel Sounds Present, Soft, Non Tender Extremities: No edema Skin: No rashes, No breakdown Neurological: Grossly intact Psych/Mental Status: Appropriate Results Lab / Micro Data Result Diagrams: 11/01/22 22:28 11/01/22 20:32 Labs: Laboratory Results - last 24 hr 11/01/22 20:32: Sodium 130 L, Potassium 3.9, Chloride 100, Carbon Dioxide 20.0 L, Anion Gap 10, BUN 13, Creatinine 2.05 H, Estim Creat Clear Calc 24.44, Est GFR(MDRD) Af Amer 32 L, Est GFR (MDRD) Non-Af 26 L, BUN/Creatinine Ratio 6.3 L, Glucose 95, Calcium 8.2 L Rhythm Strip Rhythm Strip: Sinus Rhythm Rate: 99 Ectopy: None Assessment & Plan Assessment/Plan (1) Acute kidney injury: (2) Diarrhea: PLAN: Plan 1. Acute kidney injury, likely prerenal, from dehydration from acute diarrhea Patient with recent CHUY from hospitalization [facility], reportedly improved Admitted creatinine of 2.05 Will admit to MedSurg, aggressive IV fluids, trend labs Consider kidney bladder ultrasound as well as nephrology consult if renal function is not improving 2. Acute diarrhea, acute C. difficile ruled out a few weeks ago Patient is on Imodium as needed Will check enteric panel status, continue Imodium as needed 3. Leukocytosis, likely reactive versus improved from recent orbital cellulitis treatment Continue on Bactrim (adjusted for renal function) 4. [place] metabolic acidosis secondary to acute diarrhea, continue to monitor 5. Hyponatremia, hypovolemic, continue IV fluids, trend labs 6. Recent right orbital cellulitis, currently on Bactrim, last date is 11/04/2021 7. Nicotine dependence, advised to quit, continue nicotine replacement 8. Rest of chronic medical conditions including bipolar disorder/depression/chronic pancreatitis//COPD, not in acute exacerbation/Hypertension These all complicates patient's care and recovery as well as management Continue on amlodipine hydroxyzine, Creon, mirtazapine, pantoprazole, simvastatin 9. DVT prophylaxis?Heparin subcu Total time spent: 75 minutes of which the greater part was spent in reviewing patient's chart, laboratory investigations, imaging, discussing with emergency physician, taking history, physical examining patient and going over plan of care with patient at the bedside. Charges/Coding Visit Charges Inpatient E&M: 83061 Init Hosp L3 11/02/22 0142 <Electronically signed by Ciarra Ross MD> Cosigner Signature (if applicable): CC: WARNING COORDINATION METEOROLOGIST-C SOILA EASTON; Dr. Ciarra Ross MD~ Signed [facility] Work Phone: [phone]) 636-220202-05-[address] Tang [facility] November 01, 2022 10:20pm Note Date/Time November 01, 2022 8 :27pm [facility] Medical Records Department [address] [place] [address] Emergency Department Summary 11/01/22 MR#: [id number] Acct: [id number] Name: GRACIE BANUELOS Rep #:[id number] : 1965 57 From: Edmund Tang MD PCP: CARMEN STAHL Status:REG ER Location: ED HPI History of Present Illness Chief Complaint: Nausea/Vomiting/Diarrhea Detail of Chief Complaint: Nausea, vomiting diarrhea Informant: patient Onset/Context/Timing Onset: Today (Today) and Days (Diarrhea for several days, negative test for C. difficile) Context: Sudden Onset Timing: Intermittent Quality: Vomiting diarrhea Location: GI Current Severity: Mild Maximum Severity: Mild Worsened by: Unknown Relieved by: Nothing Associated Symptoms Associated Symptoms: Thirst, dry mouth, decreased urine output and lightheadedness with standing Narrative Narrative: Patient is a 57-year-old woman who was admitted on 10/20/2022 for orbital cellulitis. She was in the hospital for 3 days. Patient was transferred to [facility]. Records were reviewed. Patient did have stool test for C. difficile which was negative. She states she is had diarrhea since her hospitalization. The nausea and vomiting started today. She denies blood or coffee-ground in her emesis. She denies blood or mucus in her diarrhea. She denies odor. She is only having 3 loose stools a day this could be antibiotic induced. Patient states she has a sensation that she has not had enough to drink. She denies fever, chills night sweats. Denies headache. She denies visual, ocular auditory symptoms. She denies cardiac respiratory symptoms. She reportsdecreased urine output otherwise no urinary symptoms. She denies myalgias or arthralgias. She denies paresthesia or anesthesia. Prior similar symptoms: No Recent Illness/Hospitalization: [facility] Medical History Abdominal pain Alcohol abuse Alcoholic hepatitis Anemia Anxiety and depression Arthritis Asthma Benign hypertension Chronic pancreatitis COPD (chronic obstructive pulmonary disease) Diarrhea GERD (gastroesophageal reflux disease) History of back problems HPV (human papilloma virus) infection Nicotine dependence, cigarettes, uncomplicated Tobacco abuse Unintentional weight loss Home Medications cholecalciferol (vitamin D3) 50 mcg (2,000 unit) capsule 50 mcg PO DAILY SUPPLEMENT 12/29/18 [History Last Taken 06/11/21] lorazepam 0.5 mg tablet 0.5 - 1 mg PO DAILY PRN PRN Anxiety 04/19/19 [History Last Taken 06/10/21 21:00] ztzbgj-htiqzxaj-fgjpyoc 24,000-76,000-120,000 unit capsule,delayed rel 3 ea PO DAILY pancreas 12/10/19 [History Last Taken 06/11/21] pantoprazole 40 mg tablet,delayed release 40 mg PO DAILY GERD 08/12/20 [History Last Taken 06/11/21] albuterol sulfate 90 mcg/actuation aerosol inhaler (Ventolin HFA) 2 puff inhalation Q4H PRN shortness of breath or wheezing #18 grams 11/14/20 [Rx Last Taken Unknown] aripiprazole 5 mg tablet (Abilify) 5 mg PO QHS mood 01/22/21 [History Last Taken 06/10/21] buspirone 10 mg tablet 10 mg PO TID PRN Anxiety 01/22/21 [History Last Taken Unknown] hydroxyzine pamoate 25 mg capsule 25 mg PO QHS sleep 06/12/21 [History Last Taken 06/10/21] ibuprofen 400 mg tablet 400 mg PO Q4H pain 06/12/21 [History Last Taken Unknown] fluticasone fur. 100 mcg-umeclid 62.5 mcg-vilant 25 mcg inhalat.powder (Trelegy Ellipta) 1 inh inhalation DAILY COPD #60 ea 09/10/21 [Rx Last Taken Unknown] lisinopril 10 mg tablet 10 mg PO DAILY 01/16/22 [History Last Taken Unknown] melatonin 10 mg tablet,extended release 10 mg PO DAILY 01/16/22 [History Last Taken Unknown] mirtazapine 45 mg tablet 45 mg PO DAILY 01/16/22 [History Last Taken Unknown] albuterol sulfate 2.5 mg/3 mL (0.083 %) solution for nebulization 2.5 mg (3 mL) inhalation Q4H PRN #25 vials 03/03/22 [Rx Last Taken Unknown] benzonatate 100 mg capsule 200 mg PO TID PRN PRN Cough #20 caps 03/03/22 [Rx Last Taken Unknown] meloxicam 15 mg tablet 15 mg PO DAILY 10/19/22 [History Last Taken Unknown] Allergy/AdvReac Type Severity Reaction Status Date / Time Penicillins Allergy Hives Verified 11/01/22 19:37 hydrocodone [From Bode] AdvReac Itching Verified 11/01/22 19:37 Family History Mother Diabetes Hypertension Heart disease High cholesterol Arthritis Thyroid disorder Brother Hypertension Sister Cancer cervical Thyroid disorder Father Kidney disease Daughter Thyroid disorder Surgical History History of appendectomy History of colonoscopy History of tubal ligation Social History Smoking Status: Current every day smoker tobacco type: cigarettes Tobacco: How many years used: 30 second hand exposure: Yes alcohol intake: current alcohol intake frequency: 3 or more drinks per day Alcohol type: beer substance use type: does not use caffeine: Yes ROS ROS ED Constitutional Constitutional ED: Denies chills, fever(s), subjective, sweats or weight loss Eyes Eyes: Denies blurry vision, change in vision or diplopia ENT ENT ED: Denies ear pain, rhinorrhea or sore throat Cardiovascular Cardiovascular: Denies chest pain, orthopnea, palpitations or paroxysmal nocturnal dyspnea Respiratory/Chest Respiratory/Chest: Denies cough, dyspnea, dyspnea on exertion, orthopnea or paroxysmal nocturnal dyspnea Gastrointestinal Gastrointestinal: Reports abdominal pain; Denies diarrhea, nausea or vomiting Genitourinary Genitourinary ED: Denies dysuria, hematuria or urinary frequency Musculoskeletal Musculoskeletal: Denies arthralgias, back pain, myalgias or neck pain Integumentary Denies abscess, Abrasions or rash Neurologic Neurologic: Reports weakness; Denies headache(s) or paresthesias Psychiatric Psychiatric: Denies anxiety or depression Endocrine Endocrinology: Denies cold intolerance or heat intolerance Hematologic/Lymphatic Hematologic/Lymphatic: Reports systems reviewed and no addt'l complaints, exceptas documented EXAM Physical Exam Const Vital Signs: 11/01/22 19:35 Temperature 97.1 F L Temperature Source Temporal Pulse Rate 98 Respiratory Rate 16 Blood Pressure 100/83 H Blood Pressure Mean 88 Pulse Ox 92 Oxygen Delivery Method Room Air Positive well nourished and well developed General Appearance ED: well developed, NAD and pallor; Negative for cyanotic or diaphoretic HEENT Reports moist mucous membranes HEENT Narrative: Head is atraumatic normocephalic. Ears normal. TMs normal. Uvula midline. There is no erythema or exudate the posterior pharynx. There is no deviation with protrusion. Eyes PERRL and EOMs intact bilaterally General Eye ED: Negative for pale conjunctiva or scleral icterus Neck no lymphadenopathy and no JVD Chest Wall inspection of chest normal and palpation of chest normal Resp normal respiratory effort and clear to auscultation bilaterally Cardio regular rate, regular rhythm, S1 normal heart sound, S2 normal heart sound and no murmurs GI normal to inspection, nondistended, normoactive bowel sounds, non-tender and non-distended; Negative for hepatosplenomegaly or no masses Palpation: soft Back/Spine no CVA tenderness Extremity normal to inspection General Extremety ED: Negative for edema or tenderness General Extremity: Negative for edema Neuro oriented x3, CN's II-XII intact bilaterally and no sensory deficits noted Sensorium / Orientation: alert Psych mental status grossly normal Skin no rashes or lesions noted, no wounds and No skin turgor normal General Skin Exam: pallor; Negative for elasticity normal or jaundice MDM MDM MDM Narrative Medical decision making narrative: Since patient's had negative stool test for C. difficile this was not repeated. BMP was obtained to assess renal function, CO2 anion gap and electrolytes and specifically potassium. Since patient is clinically dehydrated give symptoms ofdehydration 1 L normal saline was ordered. She was treated with Zofran for her nausea. Blood pressure is borderline hypotensive. Systolic is greater than 90 and mean arterial is greater than 65. Records from outside facility reviewed. Detail documented in the HPI narrative CBC was added per the request of the hospitalist. She will follow results. Lab Data Attestation: I reviewed the patient's lab results. Lab results narrative: Basic metabolic panel reveals mild hyponatremia. Patient has acute kidney injury with a significant jump in creatinine to 2.05. GFR is 26. Since patienthas not been able to eat or drink anything for the past couple of days with acute kidney injury hospitalist has been paged for admission. Labs: Laboratory Results - last 24 hr 11/01/22 20:32 Sodium 130 L Potassium 3.9 Chloride 100 Carbon Dioxide 20.0 L Anion Gap 10 BUN 13 Creatinine 2.05 H Estim Creat Clear Calc 24.44 Est GFR (MDRD) Af Amer 32 L Est GFR (MDRD) Non-Af 26 L BUN/Creatinine Ratio 6.3 L Glucose 95 Calcium 8.2 L Rhythm Strip Rhythm Strip: Sinus Rhythm Rate: 99 Ectopy: None Discharge Plan Dx/Rx/DC Orders Clinical Impression: Nausea & vomiting, Diarrhea, Acute kidney injury, Acute hyponatremia Disposition Disposition: Acute Care [facility] What to do if you have Problems For any increased pain, shortness of breath, bleeding, nausea or vomiting, chestpain, or any unexpected problems, contact your Primary Care Provider. Call [facility] ([phone]) or report to the closest Emergency Room. Call 911 if necessary. 11/01/222219 <Electronically signed by Edmund Tang MD> Cosigner Signature (if applicable): CC: WARNING COORDINATION METEOROLOGISTMiriam EASTON ~ Signed [facility] Work Phone: [phone]) 180-378602-03-2023 History of Present illness Narrative* Annmarie Elkins MD - 10/31/2022 11:46 AM EST Reason for Visit Patient presents with: Hospital F/U: follow up from [facility] and , right eye cellulitis mass behind eye and mass found in lungs per patient Gracie Banuelos is a 57 year old female who presents here today for Above Complaints.. Health Maintenance MAMMOGRAM HPI Was admitted with ocular cellulitis at [facility] and was transferred to [facility] and for oculopastics Prior to it becoming this bad she was using abx ointment of the eye, for 2 weeks for redness underneats and above,the eye lids. But it did not get better. So was in the hospital . She then was treanferred as they were concerned about the swelling and from there to No interventions were made by occulopastics as she got better on abx on her own On reviewing the mri, it notes invasive fungal but id concurred with abx. Diarrhea likely from abx which is slowly better now, Her abx right now is bactrim She stopped her smoking after this episode She had chuy and her creat is a little high , she strained her self when she went to bin. Lisinopril was held. Cont the hold til results are back She is coming up for cataract surgery surgery next month. Some concern for lung mass and is seeing Dr Perdue. She drinks a few beers on and off, no alcohol for a couple months No problem-specific Assessment & Plan notes found for this encounter. PAST MEDICAL HISTORY Diagnosis Date Acute exacerbation of chronic obstructive airways disease (HCC) Alcohol dependence in remission (HCC) 07/10/2015 Alcohol use disorder 08/27/2017 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 pancreatitis Alcoholic hepatitis 05/18/2012 Alcoholic liver disease (HCC) 11/16/2013 Anemia Anxiety with depression Asthma Chronic hypoxemic respiratory failure (HCC) COPD (chronic obstructive pulmonary disease) (HCC) 05/25/2012 DDD (degenerative disc disease), cervical 09/03/2018 Diaphragmatic hernia without mention of obstruction or gangrene Diarrhea Diverticulosis GERD (gastroesophageal reflux disease) Hemorrhoids HLD (hyperlipidemia) HTN (hypertension) Human papillomavirus in conditions classified elsewhere and of unspecified site Irritable bowel syndrome with both constipation and diarrhea 08/27/2017 Lumbar disc disease with radiculopathy 06/18/2012 Other and unspecified alcohol dependence, unspecified drinking behavior Ovarian cyst, right 12/27/2012 Pancreatitis chronic 05/26/2011 Pneumonia of both lungs due to infectious organism 2017 Stage 3 severe COPD by GOLD classification ([facility]) 2018 Tobacco use greater than 30 years Unspecified hemorrhoids without mention of complication Urine, incontinence, stress female 11/24/2014 PAST SURGICAL HISTORY Procedure Laterality Date APPENDECTOMY at age 14 COLONOSCOPY 04/15/[address], [address] Paul Perez. COLONOSCOPY 01/23/2015 2-Tubular adenomas. Dr. Víctor Lopez. COLONOSCOPY 07/29/2017 normal COLONOSCOPY - DIAGNOSTIC 01/10/2021 10 yr interval EGD 10/03/[address] Paul Perez. EGD 07/29/2017 mild gastritis, otherwise normal EGD 01/10/2021 EGD EUS 12/05/2019 mild gastritis, chronic pancreatitis with PD stone L'SCOPE CHOLECYSTECTOMY 06/14/2021 TUBAL LIGATION HX 1987 FAMILY HISTORY Problem Relation Age of Onset Diabetes Mother Hypertension Mother Rheumatologic disease Mother other (lung cancer) Mother Lung Cancer Mother Diabetes Sister Cervical Cancer Sister X 2 Hypertension Brother Lung Cancer Brother Social History Tobacco Use Smoking status: Former Packs/day: 0.50 Years: 30.00 Pack years: 15.00 Types: Cigarettes Quit date: 10/19/2022 Years since quittin.1 Smokeless tobacco: Never Vaping Use Vaping Use: Never used Substance Use Topics Alcohol use: Not Currently Comment: Alcoholic - November 2020 - last drink Drug use: Not Currently Types: Marijuana Comment: rarely- last time used was Oct 2019 Past medical history, appointments, medications, allergies reviewed. Pertinent Lab/Diagnostic Studies are reviewed and discussed today Current Outpatient Medications: amLODIPine (NORVASC) 2.5 mg tablet Cholecalciferol, Vitamin D3, 50 mcg (2,000 unit) cap pantoprazole DR (PROTONIX) 40 mg tablet nystatin (MYCOSTATIN) 100,000 unit/mL suspension albuterol HFA (VENTOLIN HFA) 90 mcg/actuation inhaler lisinopril (ZESTRIL, PRINIVIL) 10 mg tablet usxbetmzuhg-aatbvlsxg-aziuqplu (TRELEGY ELLIPTA) 100-62.5-25 mcg inhalation powder ircxer-ticpesfn-sujftwn (CREON 24) 24,000-76,000 -120,000 unit delayed release capsule simvastatin (ZOCOR) 20 mg tablet hydrOXYzine pamoate (VISTARIL) 25 mg capsule ondansetron orally disintegrating (ZOFRAN ODT) 4 mg disintegrating tablet ferrous sulfate (SLOW FE) 140 mg (45 mg iron) TbER ziprasidone (GEODON) 20 mg capsule mirtazapine (REMERON) 45 mg tablet multivitamin tablet ARIPiprazole (ABILIFY) 5 mg tablet busPIRone (BUSPAR) 10 mg tablet Ear Thermometer misc albuterol (PROVENTIL) 2.5 mg /3 mL (0.083 %) nebulizer solution OXYGEN, HOME THERAPY, COMPOUNDED PRESCRIPTION COMPOUNDED PRESCRIPTION Review of Systems CONSTITUTIONAL: No fevers, chills night sweats, unintended weight loss CARDIOVASCULAR: No chest pain, dyspnea, palpitations, orthopnea, PND, ankle edema. PULM: No dyspnea, unexplained cough. GI: No dysphagia/odynophagia, problematic reflux, constipation, diarrhea, changes in stool habits, hematochezia, melena. : No new urinary complaints, including dysuria, gross hematuria or pyuria. NEURO: No new balance problems, peripheral weakness/paresthesias or numbness of concern. Physical Exam BP 140/60 (BP Site: Left Arm, BP Position: Sitting, BP Cuff Size: Large Adult) Pulse 101 Temp 36.7 C (98.1 F) Resp 20 Ht 160 cm (5' 3) Wt 59.9 kg (132 lb) LMP 05/29/2010 SpO2 94% BMI23.38 kg/m General appearance: Well appearing, alert, in no acute distress, well nourished. Skin: Skin color, texture, turgor normal, no suspicious rashes or lesions Head: Normocephalic, no masses, lesions, tenderness or abnormalities Eyes: Anicteric sclera. Pupils are equally round and reactive to light. Extraocular movements are intact. Lungs: Lungs clear to auscultation. No wheezing, rhonchi, rales Heart: RRR without murmur, gallop, or rubs. Extremities: No deformities, edema, skin discoloration, clubbing or cyanosis. Good capillary refill. ASSESSMENT/PLAN: 1. Cellulitis of right orbital region - ICD9: 376.01, ICD10: H05.011 (primary diagnosis) Reviewed records and reqested some too 2. CHUY (acute kidney injury) (HCC) - ICD9: 584.9, ICD10: N17.9 We need to monitor to see if her chuy gets better 3. Uncontrolled hypertension - ICD9: 401.9, ICD10: I10 - good control - Recommended regular aerobic exercise. - Recommend home blood pressure monitoring, to bring results in on next visit - Goal of BP <130/80 4. Tobacco abuse, in remission - ICD9: 305.1, ICD10: F17.201 - Cessation encouraged. - Physiologic and physical aspects of tobacco addiction as well as strategies for quitting were discussed. - Counseling was given focusing on the harmful effects of this addiction especially given the patient's medical condition(s) which will be worsened because of the chemicals in tobacco. Annmarie Elkins MD [facility] NoteSend Summary: Discharge Summary Providers: Provider RoleProvider Name ReferringCorrect Info, Needed AttendingJessica Ellis PrimaryPratikerSoila PrimaryFree, Text Entry Note Recipients: Tai Peoples MD Correct Pretty Galeas MD Free, Text Entry, Soila Devi, COSMETIC CONSULTANT-DAYTIME CAREGIVER Jessica Ellis MD Discharge: Summary: Admission Date: .23-Oct-2022 23:56:00 Discharge Date: 29-Oct-2022 Attending Physician at Discharge: Jessica Ellis Admission Reason: Preseptal Cellulitis(1) Final Discharge Diagnoses: Preseptal cellulitis of right eye Procedures: none Condition at Discharge: Fair Disposition at Discharge: .Home Vital Signs: T PRBPMAPSpO2 [id number]/6397% Date/Time10/29 5:122 5:122 5:122/ 5:122/ 5:12 Range(36.1C - 39C ) (69 - 109 ) (16 - 18 ) (93 - 124 )/ (63 - 83 ) (92% - 100% ) Highest temp of 39 C was recorded at 10/28 11:31 Physical Exam: Eyes: Right eye with mildly erythematous. Pain with movement is reduced. crosses midline. Respiratory/Thorax: Patent airways, CTAB, normal breath sounds with good chest expansion, Cardiovascular: Regular, rate and rhythm, no murmurs Gastrointestinal: Nondistended, soft, non-tender, no rebound tenderness or guarding, no organomegaly, Neurological: alert and oriented x3, intact senses, motor, response and normal strength Skin: Diffuse rash on her back, neck, and extremities Hospital Course: 57 year old woman presenting as a transfer form outside hospital for further evaluation of right orbit pain/swelling/concern for infiltrative mass vs. infection. Current workup favors infection vs. infiltrative mass. Vanc/zosyn were started at [facility]. Oculoplastic were consulted and there was a discussion with ENT to try to biopsy the lesion from a out of the Orbit location. ENT reviewed the patient's case and didn't recommend a biopsy from that location. However, given the improvement the patient had on antibiotics alone, Oculoplastics decided not to biopsy or repeat of imaging. Pt had an allergic reaction to Zosyn where she developed a macular rash over her back, trunk and extremities with a one time fever of 39 C. Zosyn was stopped, CBC w/ diff, and urine studies were normal. Pt was discharged on Bactrim. The patient is to follow up with them outpatient within a week of discharge. ID saw the patient and recommended Augmentin 875 BID until 11/04/22. Will need outpatient RFP for follow up of CHUY. Discharge Information: and Continuing Care: Lab Results - Pending: Culture, Blood Drawn at 28-Oct-2022 12:04:00 Culture, Blood Drawn at 28-Oct-2022 12:04:00 ANCA-ASSOCIATED VASCULITIS PROFILE [ANCA,MPO,PR3] Drawn at 27-Oct-2022 08:20:00 Radiology Results - Pending: None Discharge Instructions: Activity: activity as tolerated. Nutrition/Diet: regular Labs: Lab Test(s): RFP Date To Be Drawn: 10/30/22 Call Results To: Soila Easton CNP or Fax Results To: Comments: PCP consider monitoring improvement of CHUY upon recent hospital admission Respiratory: Oxygen: Administer oxygen at 2 liters/min via nasal cannula to maintain SpO2% of 88-92 with activity Additional Orders: Additional Instructions: Dear Ms. Banuelos, You presented to us as transfer from [facility] for a possible biopsy of the right eye infiltrate by our Oculoplastic service. You were evaluated by the eye doctors here and due to the great improvement in your eye's swelling and redness on antibiotics alone the decision was made to avoid biopsy in such a risky area (behind your right eye). Our Infectious Disease specialist saw you as well and decided to keep you on oral antibiotics after discharge. You were put on Augmentin 875mg twice a day until 11/04/22. While you were here you developed diarrhea possibly from the antibiotics. Work up for C. diff was negative. Diarrhea should resolve after ending the antibiotics course. Please stay hydrated by drinking water to replenish fluids loss. You also developed an acute kidney injury, possibly from the diarrhea and fluid loss. It should resolve once you are sufficiently hydrated and the diarrhea is under control. We held your blood pressure medication lisinopril as it might worsen kidney injury. Please discuss restarting it with your PCP as your kidney injury recovers. Follow Up Appointments: Follow-Up Appointment 01: Physician/Dept/Service: Primary:Lalito Hoskins MD Reason for Referral: Establish with Primary Care Provider Scheduled Date/Time: 15-Dec-2022 16:00 Location: [address] [place] [address], [address] [place] [address] fax Follow-Up Appointment 02: Physician/Dept/Service: Ophthalmology: Dr Ortega Scheduled Date/Time: 03-Dec-2022 15:30 Location: [facility] [address] , [address] [place] [address] Follow-Up Appointment 03: Physicia (more content not included)...[facility]01-31-2023 NoteThis report has been cancelled.[facility]01-27-2023 Note History of Present Illness: /Lactating: Are You no Are You Currently Breastfeedingno Admission Reason: Preseptal Cellulitis HPI: She is a 57 year old woman with history of COPD (GOLD Stage 3, FEV1 55%), anxiety, HTN, DLD who is presenting as a transfer to [facility] from [facility] for further management of preseptal cellulitis vs. infiltrative process of her right eye. She is seen on after arrival to this institution. She says that for the past month she has bene having headaches on the right side of her head, redness and swelling of her right eye, ear pain, pain with chewing, and blurry vision. Over the past month she has visited her outpatient eye doctor several times and tried oral antibiotics (azithromycin) and eye drops without improvement. She has not had any rhinorrhea or sinus pressure. She has had pain with chewing but no sore throat. She has had no fevers or chills but was waking up drenched in sweat the two evenings before she presented to the ER initially in [place]. A brief summary of her course prior to arrival to [facility] is seen in the two paragraphs below. On or about 10/19 she had pain in her right eye that worsened to the point she was unable to tolerate it at home with ibuprofen so she presented to the [place] [facility]. At that time she had a CT scan of her orbits which showed right orbital preseptal and orbital cellulitis without evidence of orbital compartment syndrome. She had elevated WBC count to 13.9 with neutrophilic predominance. She had CRP elevated to 42.6 and ESR of 75 mm/h. She was given one dose of clindamycin in the [place] ER. On 10/20 she arrived at the [facility] and evaluated by ophthalmology who recommended MRI orbit w and w/o contrast, broad spectrum antibiotics, ENT consult for possible orbital biopsy, and testing for thyroid disease, sarcoidosis, ANCA-vasculitis, and IgG4. She was started on vancomycin and pip/tazo at the recommendation of the ID consult service. She was evaluated by ENT who felt that biopsy was not needed at this time given improvement in swelling with antibiotics. They also on nasal scope did not see evidence of invasive fungal infection. She had an MRI performed which diffuse infiltration from orbital region into surrounding tissue (report copied and pasted below). On 10/22 ophthalmology recommended transfer to or [facility] for oculoplastics care given need for potential cut-down biopsy which was unable to be accommodated at [facility]. When I spoke with the patient her biggest concerns were continued pain of the right eye and surrounding tissue as well as the possibility that this could be a cancer causing her symptoms. Regarding the pain, it is 9/10 currently and radiates from the right eyelid down to her cheek and into her temples. It is exacerbated with movement, especially the transit from [facility]. It was controlled at OSH with oxycodone 5mg q4h PRN and morphine 1mg IVP q4h PRN breakthrough. She is having worsening of the pain with movement of her eyes, especially when looking to the right. She endorses light sensitivity. Her vision is occasionally double. PMHx: COPD (PFTs 2018 with FEV1 55%, FEV1/FVC 54%, TLC 106%) on 2L oxygen with activity, anxiety, HTN, HLD, severe depression, chronic pancreatitis due to EtOH, GERD Surgical Hx: Cholecystectomy Allergies: Penicillin (Hives as a child, has been receiving pip/tazo at w/o difficulty) Social: Lives with daughter and granddaughter, former heavy EtOH but now only drinking 2-3 beers on occasion, heavy tobacco use (denies need for nicotine patch, motivated to quit this admission) ROS: As above, endorses chronic diarrhea, denies chest pain, shortness of breath, abdominal pain, nausea, vomiting, constipation, leg swelling, cough Family History: Mother with RA, lung cancer, CAD, COPD. Brother with lung cancer. Sister with hypothyroidism. Daughter with hyperthyroidism. Medications (reviewed in chart and discussed with patient): Trelegy 1 puff daily Albuterol MDI PRN Simvastatin 20mg Lisinopril 10mg Creon 24,000 TID Meloxicam 7.5mg daily Hydroxyzine 25mg q6h PRN Geodon 20mg QHS Abilify 5mg in AM Pantoprazole 40mg daily Vitamin D3 2000U daily Melatonin 10mg daily Mirtazapine 45mg QHS Pertinent Labs/Imaging at [facility]/[place]: ESR/CRP elevated to 75 and 42 respectively. Blood Cx NGTD at [place] on arrival Rheumatoid Factor negative C. Diff negative 10/23 CT chest w/o mediastinal or hilar adenopathy (obtained to evaluate for sarcoidosis) IGG 842 (normal range) Imaging: CT Orbit Sella Inner 10/19/22 19:05 IMPRESSION: 1. Marked abnormality of the soft tissues of the RIGHT orbit including preseptal soft tissue swelling consistent with a cellulitis. Extensive enhancement of the conjunctival surface consistent with extensive conjunctivitis. There is enha (more content not included)...[facility]01-27-2023 NoteDISCHARGE SUMMARY PATIENT INFORMATION: Name: Gracie Banuelos Date of Admission: 10/20/2022 8:44 AM Discharge Date: 10/23/2022 : 1965 57 year old Admitting Physician: Robby Bush MD PCP: No primary care provider on file. Discharge Physician: ROBBY BUSH TRANSFERRED TO [facility] COURSE AND OUTCOME: Gracie Banuelos is a 57 year old year old female who presented to [facility] on 10/20/2022 8:44 AM. Ms. Banuelos is a 57 yof with COPD, active tobacco abuse, anxiety, HTN, sent from OSH [[place] [facility]] for evaluation of right eye swelling, erythema and pain with movement. Infectious diseases, ENT, and Ophthalmology is consulted and she was started on empiric abx. MRI orbit Abnormal infiltration throughout the right retroantral and extraconal fat as well as the pterygopalatine fossa and diffusely throughout the right assistant associate full professor space with asymmetry of the muscles of mastication. ENT performed nasal endoscopy - without signs of fungal infection. ID recommended to hold antifungals Ophthalmology strongly recommended orbital biopsy to r/o infectious vs inflammation or lymphoma which could not be arranged at [facility]. Per ophthalmology recommendations and after discussing the patient, patient was transferred to [facility] for further investigations. I examined pt on day of discharge. She was resting comfortably in bed, reports blurry vision and pain in her right eye Periorbital erythema and swelling much improved but eye redness persisted. She was transferred to [facility] on night of 10/23 ~2100. I was not at hospital during the transfer Please do not hesitate to contact [facility] division of Hospital Medicine if you have any questions or concerns. It was a pleasure getting to take care of your patient during her hospital stay. INPT CONSULTS IP ENT CONSULT IP INFECTIOUS DISEASE CONSULT F/U APPTS No follow-up provider specified. DIET: regular ACTIVITY: No restrictions DISPO: Discharged to TRANSFERRED TO F []Home, []HHC, []SNF, []ECF, []Hospice, []AMA CONDITION Stable DISCHARGE DIAGNOSES: Principal Problem: Orbital cellulitis on right Active Problems: Chronic bronchitis (HCC) Anxiety Tobacco abuse Therapeutic drug monitoring HTN (hypertension) DISCHARGE MEDICATIONS: Medication List ASK your doctor about these medications Abilify 5 MG tablet Generic drug: ARIPiprazole CREON 10 ORAL hydrOXYzine pamoate 25 MG capsule Commonly known as: VISTARIL lisinopril 10 MG tablet Commonly known as: ZESTRIL meloxicam 15 MG tablet Commonly known as: MOBIC mirtazapine 45 MG tablet Commonly known as: REMERON pantoprazole 40 MG Pack oral packet Commonly known as: PROTONIX simvastatin 20 MG tablet Commonly known as: ZOCOR vitamin D3 50 MCG (1999 [place]) Caps capsule TREATMENT TEAM: Treatment Team: Emergency Medicine Photographer News: Edwina Doyle; Consulting Physician: Consult, Ip Infectious Disease; PCNA: Sherron Briones; 1st call: Ani Thurman APRN-IGOR OBJECTIVE FINDINGS AT DISCHARGE: BP 119/90 (BP Location: right arm) Pulse 105 Temp 98.1 ???F (36.7 ???C) (Oral) Resp 20 Ht 5' 3 (1.6 m) SpO2 96% PF 80 L/min Comment: COUGHING BMI 23.55 kg/m??? PHYSICAL EXAM GEN: Awake female, no apparent distress. HENT: Mucous membranes are moist. Pharynx w/o exudates or thrush. RIGHT EYE Red, pain with EOMI, blurry vision in right eye, periorbital erythema improved RESP: CTAB. Symmetric chest movement. CARDIO/VASC S1/S2. RRR. No JVD. Pulses equal AND b/l. No peripheral edema. GI: Soft. No TTP in all quadrants. No hepatosplenomegaly. BS +. MSK: No gross joint deformities, moving all 4 extremities. SKIN: Normal coloration, warm, AND dry. NEURO: gear and spline grinder grossly intact, normal speech, no lateralizing weakness. PSYCH: Awake, alert, oriented x 4. Affect appropriate. LABS Recent Labs 10/22/22 0958 WBC 16.0* HCT 35.3* PLT 332 Universal Grinder Tool Assessment IMAGING: CT CHEST W/O CONTRAST Result Date: 10/20/2022 Narrative: EXAMINATION: CT CHEST W/O CONTRAST 10/20/2022 06:05 PM CLINICAL HISTORY: Hilar lymphadenopathy; Interstitial Lung disease; ?sarcoidosis ASSOCIATED DIAGNOSIS: Hilar lymphadenopathy Interstitial lung disease ?sarcoidosis ORDERING PROVIDER: ROBBY BUSH TECHNOLOGISTS NOTE: COMPARISON: None TECHNIQUE: Contiguous axial images of the chest without contrast were obtained from above the lung apices through the level of the adrenal glands. 2D sagittal and coronal reconstructions were obtained from the axial data. FINDINGS: Cardiovasculature: The heart is normal in size. Severe three-vessel coronary calcification. Atherosclerotic calcifications within the thoracic aorta. Mitral annular calcification. Mediastinum/Pericardium: Unremarkable Pleura: Unremarkable Central Airways: Widely patent. Layering of secretions in the right lower lobe bronchus. Lungs: Centrilobular emphysema is p (more content not included)...[facility] [id number] NoteDISCHARGE SUMMARY PATIENT INFORMATION: Name: Gracie Banuelos Date of Admission: 10/20/2022 8:44 AM Discharge Date: 10/23/2022 : 1965 57 year old Admitting Physician: Robby Bush MD PCP: No primary care provider on file. Discharge Physician: ROBBY BUSH TRANSFERRED TO [facility] COURSE AND OUTCOME: Gracie Banuelos is a 57 year old year old female who presented to [facility] on 10/20/2022 8:44 AM. Ms. Banuelos is a 57 yof with COPD, active tobacco abuse, anxiety, HTN, sent from OSH [[place] [facility]] for evaluation of right eye swelling, erythema and pain with movement. Infectious diseases, ENT, and Ophthalmology is consulted and she was started on empiric abx. MRI orbit Abnormal infiltration throughout the right retroantral and extraconal fat as well as the pterygopalatine fossa and diffusely throughout the right assistant associate full professor space with asymmetry of the muscles of mastication. ENT performed nasal endoscopy - without signs of fungal infection. ID recommended to hold antifungals Ophthalmology strongly recommended orbital biopsy to r/o infectious vs inflammation or lymphoma which could not be arranged at [facility]. Per ophthalmology recommendations and after discussing the patient, patient was transferred to [facility] for further investigations. I examined pt on day of discharge. She was resting comfortably in bed, reports blurry vision and pain in her right eye Periorbital erythema and swelling much improved but eye redness persisted. She was transferred to [facility] on night of 10/23 ~2100. I was not at hospital during the transfer Please do not hesitate to contact [facility] division of Hospital Medicine if you have any questions or concerns. It was a pleasure getting to take care of your patient during her hospital stay. INPT CONSULTS IP ENT CONSULT IP INFECTIOUS DISEASE CONSULT Ophthalmology F/U APPTS No follow-up provider specified. DIET: regular ACTIVITY: No restrictions DISPO: Discharged to TRANSFERRED TO [facility] []Home, []HHC, []SNF, []ECF, []Hospice, []AMA CONDITION Stable DISCHARGE DIAGNOSES: Principal Problem: Orbital cellulitis on right Active Problems: Chronic bronchitis (HCC) Anxiety Tobacco abuse Therapeutic drug monitoring HTN (hypertension) DISCHARGE MEDICATIONS: Medication List ASK your doctor about these medications Abilify 5 MG tablet Generic drug: ARIPiprazole CREON 10 ORAL hydrOXYzine pamoate 25 MG capsule Commonly known as: VISTARIL lisinopril 10 MG tablet Commonly known as: ZESTRIL meloxicam 15 MG tablet Commonly known as: MOBIC mirtazapine 45 MG tablet Commonly known as: REMERON pantoprazole 40 MG Pack oral packet Commonly known as: PROTONIX simvastatin 20 MG tablet Commonly known as: ZOCOR vitamin D3 50 MCG (1999) Caps capsule TREATMENT TEAM: Treatment Team: Emergency Medicine Photographer News: Edwina Doyle; Consulting Physician: Sofy, Stevie Infectious Disease; PCNA: Sherron Briones; 1st call: Ani Thurman APRN-IGOR OBJECTIVE FINDINGS AT DISCHARGE: BP 119/90 (BP Location: right arm) Pulse 105 Temp 98.1 ???F (36.7 ???C) (Oral) Resp 20 Ht 5' 3 (1.6 m) SpO2 96% PF 80 L/min Comment: COUGHING BMI 23.55 kg/m??? PHYSICAL EXAM GEN: Awake female, no apparent distress. HENT: Mucous membranes are moist. Pharynx w/o exudates or thrush. RIGHT EYE Red, pain with EOMI, blurry vision in right eye, periorbital erythema improved RESP: CTAB. Symmetric chest movement. CARDIO/VASC S1/S2. RRR. No JVD. Pulses equal AND b/l. No peripheral edema. GI: Soft. No TTP in all quadrants. No hepatosplenomegaly. BS +. MSK: No gross joint deformities, moving all 4 extremities. SKIN: Normal coloration, warm, AND dry. NEURO: gear and spline grinder grossly intact, normal speech, no lateralizing weakness. PSYCH: Awake, alert, oriented x 4. Affect appropriate. LABS No results for input(s): NA, K, CL, CO2, BUN, CREATININE, GLU, WBC, HCT, PLT in the last 72 hours. Invalid input(s): HEMOGLOBIN Universal Grinder Tool Assessment IMAGING: CT CHEST W/O CONTRAST Result Date: 10/20/2022 Narrative: EXAMINATION: CT CHEST W/O CONTRAST 10/20/2022 06:05 PM CLINICAL HISTORY: Hilar lymphadenopathy; Interstitial Lung disease; ?sarcoidosis ASSOCIATED DIAGNOSIS: Hilar lymphadenopathy Interstitial lung disease ?sarcoidosis ORDERING PROVIDER: ROBBY BUSH TECHNOLOGISTS NOTE: COMPARISON: None TECHNIQUE: Contiguous axial images of the chest without contrast were obtained from above the lung apices through the level of the adrenal glands. 2D sagittal and coronal reconstructions were obtained from the axial data. FINDINGS: Cardiovasculature: The heart is normal in size. Severe three-vessel coronary calcification. Atherosclerotic calcifications within the thoracic aorta. Mitral annular calcification. Mediastinum/Pericardium: Unremarkable Pleura: Unremarkable Central Airways: Widely patent. Layering of (more content not included)...[facility] [id number] NoteDAILY PROGRESS NOTE Length of stay: 3 day(s) She is anxious I will have surgery today I counseled her that we initiated the transfer process to [facility] for BIOPSY Reports pain in her right eye and blurry vision vancomycin, , Other, One Time Dose mirtazapine, 45 mg, Oral, At Bedtime ipratropium-albuterol, 3 mL, Nebulization, QID RT piperacillin/tazobactam, 3.375 g, Intravenous, Q6H Antibiotic esomeprazole, 40 mg, Oral, Daily 30 min before breakfast atorvastatin, 20 mg, Oral, At Bedtime [NOV Hold] albuterol, 2.5 mg, Nebulization, Q4H RT [MAR Hold] ipratropium, 0.5 mg, Nebulization, Q4H RT vancomycin iv, 20 mg/kg, Intravenous, Every 12 hours enoxaparin, 40 mg, Subcutaneous, Daily ARIPiprazole, 5 mg, Oral, At Bedtime copuxqg-whenct-yecistba, 12,000 Units, Oral, 3x Daily with Meals lisinopril, 10 mg, Oral, Daily PRN medications: glycerin-hypromellose-, acetaminophen, oxyCODONE, guaiFENesin, ondansetron, diphenhydrAMINE, albuterol, vancomycin dosing pharmacy consult, hydrOXYzine BP 99/72 (BP Location: right arm) Pulse 93 Temp 97.9 ???F (36.6 ???C) (Oral) Resp 18 Ht 5' 3 (1.6 m) SpO2 92% PF 80 L/min Comment: COUGHING BMI 23.55 kg/m??? No intake or output data in the 24 hours ending 10/23/22 1127 General: no apparent distress HENT: atraumatic Eyes: Right eye - periorbital cellulitis much improved, blurry vision and pain with EOMI persists Neck: trachea midline, no nuchal rigidity Cardiovascular: regular rate and rhythm, no murmurs or rubs or gallops Pulm: clear to auscultation bilaterally, no accessory muscle use Abd: soft, non-distended, non-tender without rebound or guarding Back: nontender without bony step-offs or deformities : no CVAT Extremities: WWP, no edema Neuro: A AND O, no focal deficits, strength and sensation intact in four extremities Psych: appropriate mood and affect Radiology and Labs reviewed Assessment Principal Problem: Orbital cellulitis on right Active Problems: Chronic bronchitis (HCC) Anxiety Tobacco abuse Therapeutic drug monitoring HTN (hypertension) Reviewed MRI orbit results - findings concerning for fungal sinusitis. She had nasal scope on 10/21 - no signs of fungal sinusitis. Her right periorbital region is much improved with IV abx but she still reports blurry vision. Per Ophthal, exam findings are unchanged with abx. fungal vs inflammatory in differential Plans Ophthalmology recommends transfer to [facility]/ orbital surgeon for biopsy. Discussed with patient and sister Domonique, they requested to try CC first. I initiated the transfer process today, awaiting call back from [facility]. Continue empiric vancomycin and zosyn. Per ENT no signs of fungal infection on nasal scope, ID recommends to hold antifungal for now. Continue oxy Q4 and morphine iv prn for breakthrough pain Appreciate consultants recs DVT Prophylaxis lovenox Code Status: full code Plan for Disposition: anticipate at least 2 [place] stay I appreciate the excellent care from the nursing staff, and server support technician I personally reviewed patient medical record including blood work and radiology report Total time spent with patient is greater than 30 minutes more than 70% of the time is spent in direct patient care Dictated using voice recognition software. Document may contain errors not identified before finalizing. Robby Bush MD MS Pager # [phone] [id number] Telephone encounter Note* Telephone Encounter - Jaime Aggarwal MD - 10/23/2022 12:45 PM EST Spoke to Domonique, pt sister Explained rationale for biopsy and transfer All questions answered [facility] Work Phone: [phone] Miscellaneous Notes* Telephone Encounter - Jaime Aggarwal MD - 10/23/2022 12:45 PM EST Spoke to Domonique, pt sister Explained rationale for biopsy and transfer All questions answered * Telephone Encounter - Airam Adam - 10/23/2022 12:08 PM EST PT's sister, Domonique calling in stating Dr. Aggarwal called and LVM for her regarding her sister that is inpatient. Please call Domonique back to discuss her sister Dx's [phone] ( PT will be home until 2:30 pm) documented in this [id number] Telephone encounter Note* Telephone Encounter - Airam Adam - 10/23/2022 12:08 PM EST PT's sister, Domonique calling in stating Dr. Aggarwal called and LVM for her regarding her sister that is inpatient. Please call Domonique back to discuss her sister Dx's [phone] ( PT will be home until 2:30 pm) [id number] NoteOTOLARYNGOLOGY HEAD AND NECK SURGERY DAILY PROGRESS NOTE Subjective: Pain continues to improve, though diplopia persists. Objective: BP 119/55 Pulse 90 Temp 98.5 ???F (36.9 ???C) (Oral) Resp 18 Ht 5' 3 (1.6 m) SpO2 91% PF 80 L/min Comment: COUGHING BMI 23.55 kg/m??? vCONSTITUTIONAL: No acute distress VOICE: No hoarseness or other abnormality RESPIRATION: Breathing comfortably, no stridor CV: No clubbing/cyanosis/edema in hands EYES: EOMI, right periorbital erythema which appears improved from previous HEAD AND FACE: Symmetric facial features, no masses or lesions, sinuses non-tender to palpation ORAL CAVITY/OROPHARYNX/LIPS: Normal mucous membranes, normal floor of mouth/tongue/OP, no masses or lesions, edentulous PHARYNGEAL HERNANDEZ: No masses or lesions Intake/Output Summary (Last 24 hours) at 10/22/2022 1538 Last data filed at 10/22/2022 0514 Gross per 24 hour Intake 1350 ml Output -- Net 1350 ml MRI Orbit Radiologic impression below from 10/21/22 IMPRESSION: No change in the infiltration of the retroantral fat pad extending into the pterygopalatine fossa and orbit. There is enhancement of the right vidian and V2 nerves. The Meckel's cave and cavernous sinus are normal. Assessment and Plan: 57 year old female with infection vs mass vs inflammation of the right orbit, and pterygopalatine fossa. No immunocompromise or history of DM. Scope without clinical signs of invasive fungal sinusitis. ESR was elevated at OSH before transfer to 74 and CRP to 42 favoring an infectious or inflammatory process. -Continue to monitor for clinical improvement with IV abx -Differential also is an infiltrative mass of the orbit and surrounding structures -ENT will continue to follow ENT [id number] Noman Prajapati MD PGY-3 Otolaryngology - Head AND Neck Surgery [facility] Service Pager: [phone] [id number] History of Present illness Narrative* Uri Peña MD - 10/22/2022 5:29 PM EST Teaching Physician Note: I saw and evaluated the patient. I personally obtained the ochoa and critical portions of the historyand physical exam. I reviewed the resident's documentation and discussed the patient with the resident. I agree with the resident's medical decision making as documented in the resident's note. red swell RT lids and eye x 2mo no fever or chills ; not toxic no injury RT lid erythema and entropion; mild proptosis mild i jection eom full MTI shows infiltartaive process to orbit and RT face plan-spoke with pcp , and we rec refer to orbital surgeon for biopsy: O-P at [facility] or Uri Peña MD * Jaime Aggarwal MD - 10/22/2022 4:18 PM EST Daily follow up visit 1. Periorbital/orbital inflammation, OD Course - new onset periocular swelling, redness for over a month, fluctuating nature - had been getting better on PO antibiotics, received azithromycin, but then worsened - no history of trauma or sinusitis - says eyelids infermittently swollen shut - localized throbbing headache, pain with EOM, kacie supraduction - presented to outside ED that did not have beds, sent to [facility] for possible admission for orbital cellulitis - received one dose of clindamycin, apparently improving - PMH of COPD with recent exacerbation, ETOH hx of pancreatitis - Since 10/20/22, tracking with daily examination Labs - Pending ANCA, IgG4 - CT Chest 10/20/22 - No acute process, no LAD. 2mm right upper nodule. - Outside ED labs: WBC 13.9, ESR 75, CRP 42 Imaging - CT from OSH at 1900 on 10/19/22 not showing abscess - MRI Orbit 10/21 showing No change from CT, reported diffuse infiltration of right pterygoid, temporalis, retroantral fat pad extending into the pterygopalatine fossa and through inferior orbital fissure into the inferior and lateral extraconal space. Thickening of the inferior and lateral rectus muscles. Thickening and infiltration of the lacrimal gland.There is minimal enhancement of the right vidian nerve (Series 15, Image 4-5) and the anterior aspect of T2 in the infraorbital canal (Series 14, Image 8) extending to the rotundum. On review of imaging, also see intraconal and extraconal fatstranding and thickening of the superior rectus muscle. Scope at bedside 10/21 was unremarkable Medications Vanc and zosyn day 2 Assessment - Right orbital inflammation extending from orbit into the pterygopalatine fossa; unclear etiology - Hertels at 116 today - Today's exam is unchanged over last 2 days : Patient has VA 20/25 ph, no APD, full color plates OU, -1 supraduction and -2 infraduction, mild injection and chemosis and caruncular edema on slit lamp exam. - Ddx: orbital malignancy, NSOI, IgG4, fungal infection, orbital cellulitis, systemic inflammation (GPA, RA, SLE, Graves) Recommendations: - continue broad spectrum antibiotic coverage - Recommend ID consultation and blood cultures - Muscle enlargement may indicate thryoid disease. Recommend thyroid labs (TSH/T3/T4) - Appreciate recommendations from ENT - Recommend transfer to or [facility] for oculoplastics care. The patient will likely require a cut-down biopsy to determine etiology of inflammation, which ophtho is not equipped to do. 2. 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 Pt Voices understanding of plan and AVS. Jaime Aggarwal MD Ophthalmology Resident Seen and discussed with Dr. Kidd and documented in this [id number] NoteDAILY PROGRESS NOTE Length of stay: 2 day(s) She is feeling better, but reports persistent right eye blurry vision and pain with movement [rt eye] She requested to updated her sister [RN] - I will call Slept well.. finally she says. Intermittent right eye pain persists ipratropium-albuterol, 3 mL, Nebulization, QID RT piperacillin/tazobactam, 3.375 g, Intravenous, Q6H Antibiotic esomeprazole, 40 mg, Oral, Daily 30 min before breakfast atorvastatin, 20 mg, Oral, At Bedtime [NOV Hold] albuterol, 2.5 mg, Nebulization, Q4H RT [NOV Hold] ipratropium, 0.5 mg, Nebulization, Q4H RT vancomycin iv, 20 mg/kg, Intravenous, Every 12 hours enoxaparin, 40 mg, Subcutaneous, Daily ARIPiprazole, 5 mg, Oral, At Bedtime yakvvns-kkchfc-xsswphqz, 12,000 Units, Oral, 3x Daily with Meals lisinopril, 10 mg, Oral, Daily PRN medications: guaiFENesin, ondansetron, diphenhydrAMINE, albuterol, vancomycin dosing pharmacy consult, HYDROmorphone HCl PF, hydrOXYzine BP 119/55 Pulse 90 Temp 98.5 ???F (36.9 ???C) (Oral) Resp 18 Ht 5' 3 (1.6 m) SpO2 91% PF 80 L/min Comment: COUGHING BMI 23.55 kg/m??? Intake/Output Summary (Last 24 hours) at 10/22/2022 1354 Last data filed at 10/22/2022 0514 Gross per 24 hour Intake 1350 ml Output -- Net 1350 ml General: no apparent distress HENT: atraumatic Eyes: Right eye - periorbital cellulitis much improved, blurry vision and pain with EOMI persists Neck: trachea midline, no nuchal rigidity Cardiovascular: regular rate and rhythm, no murmurs or rubs or gallops Pulm: clear to auscultation bilaterally, no accessory muscle use Abd: soft, non-distended, non-tender without rebound or guarding Back: nontender without bony step-offs or deformities : no CVAT Extremities: WWP, no edema Neuro: A AND O, no focal deficits, strength and sensation intact in four extremities Psych: appropriate mood and affect Radiology and Labs reviewed Assessment Principal Problem: Orbital cellulitis on right Active Problems: Chronic bronchitis (HCC) Anxiety Tobacco abuse HTN (hypertension) Reviewed MRI orbit results - findings concerning for fungal sinusitis. She had nasal scope on 10/21 - no signs of fungal sinusitis. Her right periorbital region is much improved with IV abx but she still reports blurry vision. Per Ophthal, exam findings are unchanged with abx. fungal vs inflammatory in differential Plans Continue empiric vancomycin and zosyn. CT chest no signs of sarcoidosis. ANCA and IgG is pending. Rpt ESR/CRP. Per ENT no signs of fungal infection on nasal scope, ID recommends to hold antifungal for now Appreciate consultants recs DVT Prophylaxis lovenox Code Status: full code Plan for Disposition: anticipate at least 2 [place] stay I appreciate the excellent care from the nursing staff, and server support technician I personally reviewed patient medical record including blood work and radiology report Total time spent with patient is greater than 30 minutes more than 70% of the time is spent in direct patient care Dictated using voice recognition software. Document may contain errors not identified before finalizing. Robby Bush MD MS Pager # [phone]oms [id number] NoteOTOLARYNGOLOGY HEAD AND NECK SURGERY DAILY PROGRESS NOTE Subjective: Patient thinks that the abx are helping and her right eye feels slightly better. Objective: BP 139/62 (BP Location: right arm) Pulse 100 Temp 98.5 ???F (36.9 ???C) (Oral) Resp 18 Ht 5' 3 (1.6 m) SpO2 94% PF 80 L/min Comment: COUGHING BMI 23.55 kg/m??? vCONSTITUTIONAL: No acute distress VOICE: No hoarseness or other abnormality RESPIRATION: Breathing comfortably, no stridor CV: No clubbing/cyanosis/edema in hands EYES: EOMI, right periorbital erythema which appears stable NEURO: Alert and oriented times 3, Cranial nerves II-XII grossly intact and symmetric bilaterally HEAD AND FACE: Symmetric facial features, no masses or lesions, sinuses non-tender to palpation NOSE: External nose midline, anterior rhinoscopy is normal with limited visualization to the anterior aspect of the interior turbinates, no bleeding or drainage, no lesions, septum deviated to the left ORAL CAVITY/OROPHARYNX/LIPS: Normal mucous membranes, normal floor of mouth/tongue/OP, no masses or lesions, edentulous, no lesions of the hard palate PHARYNGEAL HERNANDEZ: No masses or lesions Intake/Output Summary (Last 24 hours) at 10/21/2022 192 Last data filed at 10/21/2022 1014 Gross per 24 hour Intake 980 ml Output -- Net 980 ml Procedure Note: Nasal endoscopy Verbal informed consent was obtained from the patient. The scope was placed in the bilateral nares. The right septum, middle and inferior turbinate were without necrosis and were sensate. No evidence of active drainage from the middle meatus and no visualized masses The left septum was noted to be severely deviated and the inferior turbinate was normal in appearance MRI Orbit Radiologic impression below from 10/21/22 IMPRESSION: No change in the infiltration of the retroantral fat pad extending into the pterygopalatine fossa and orbit. There is enhancement of the right vidian and V2 nerves. The Meckel's cave and cavernous sinus are normal. Assessment and Plan: 57 year old female with infection vs mass vs inflammation of the right orbit, and pterygopalatine fossa. No immunocompromise or history of DM. Scope without clinical signs of invasive fungal sinusitis. ESR was elevated at OSH before transfer to 74 and CRP to 42 favoring an infectious or inflammatory process. -Continue to monitor for clinical improvement with IV abx -Differential also is an infiltrative mass of the orbit and surrounding structures -ENT will continue to follow ENT [id number] Note: ENT team attempted to scope patient two separate times earlier this afternoon after critical findings on the MRI were noted. Esdras Brambila DDS, MD ENT rotator ENT pager [phone] [id number] History of Present illness Narrative* Claire Ruiz - 10/21/2022 2:30 PM EST Pt states that she seeing double with both eyes open The images are vertical, one on top of the other. It doesn't happen all day. It comes and goes. VA: OD cc: 20/30+3 OS:cc: 20/40-2 Ph: 20/25-1 Pupil OU 3/round/minimal/none EOM: Full CVF OU: Full IOP OD: 11 OS:08 * Noreen Dneson MD - 10/21/2022 2:30 PM EST Follow up visit 1. Periorbital/orbital inflammation, OD Course - new onset periocular swelling, redness for over a month, fluctuating nature - had been getting better on PO antibiotics, received azithromycin, but then worsened - no history of trauma or sinusitis - says eyelids infermittently swollen shut - localized throbbing headache, pain with EOM, kacie supraduction - presented to outside ED that did not have beds, sent to main campus for possible admission for orbital cellulitis - received one dose of clindamycin, apparently improving - PMH of COPD with recent exacerbation, ETOH hx of pancreatitis Labs - Outside ED labs: WBC 13.9, ESR 75, CRP 42 Imaging - CT from OSH at 1900 on 10/19/22 not showing abscess - MRI Orbit 10/21 showing No change from CT, reported diffuse infiltration of right pterygoid, temporalis, retroantral fat pad extending into the pterygopalatine fossa and through inferior orbital fissure into the inferior and lateral extraconal space. Thickening of the inferior and lateral rectus muscles. Thickening and infiltration of the lacrimal gland.There is minimal enhancement of the right vidian nerve (Series 15, Image 4-5) and the anterior aspect of T2 in the infraorbital canal (Series 14, Image 8) extending to the rotundum. On review of imaging, also see intraconal and extraconal fat stranding and thickening of the superior rectus muscle. \\ Assessment - Right orbital inflammation extending from orbit into the pterygopalatine fossa; unclear etiology - Today's exam is unchanged from yesterday's: Patient has VA 20/25 ph, no APD, full color plates OU, -1 supraduction and -2 infraduction, mild injection and chemosis and caruncular edema on slit lampexam. Hertels 15, 15, at 103 mm. - Ddx: NSOI, IgG4, fungal infection, orbital cellulitis, systemic inflammation (GPA, RA, SLE, Graves), orbital malignancy (less likely) - inflammatory markers elevated on recent labs - May be fungal etiology given indolent nature vs. Inflammatory process - while infectious orbital cellulitis remains on differential, no apparent abscess to fit timeline or appearance on exam Recommendations: - continue broad spectrum antibiotic coverage, strongly recommend ID consultation for their assessment - Recommend obtaining blood cultures - Recommend ancillary testing to rule out inflammatory orbital process: - ARUNA - CXR - ANCA - IgG4 - Thyroid labs (TSH/T3/T4) - Appreciate recommendations from ENT, if patient does not improve on abx would recommend pursuing biopsy for definitive diagnosis Opthalmology will continue to follow for signs of optic neuropathy Please page with worsening vision, changing pupil exam, worsening swelling/proptosis on exam Noreen Denson MD and Jaime Aggarwal MD documented in this [id number] Note10/21/22 1143 Assessment and Discharge Planning Evaluation READMISSION LESS THAN 30 DAYS No READMISSION RISK SCORE IS Low Risk INTERVIEWED Patient;Chart Review COGNITIVE STATUS Oriented to person, place, time and location Functional Status Age Appropriate;Ambulates with certified medical biller (cane, walker, etc.) LIVING SITUATION Home - Own;Family PCP VERIFIED No ADMISSION INSURANCE [place] [facility] [place] [facility] [place] HEALTH CARE PRIOR TO ADMISSION No Dialysis No TENTATIVE DISCHARGE PLAN Home - Own READMISSION RISK SCORE SHOULD BE Remain Unchanged REASON READMISSION SCORE NEEDS ADJUSTED na CM met and spoke with patient bedside. Address and phone number verified. Pt in good spirits and minimal discomfort at this time. CM will await PT/OT recommendations prior to dc. CM will remain available to assist with discharge planning and needs as warranted. Katina Salas Corset Fitter (8:30-4:00)[facility]oms [id number] [facility] H[facility]ORY AND PHYSICAL EXAMINATION SERVICE DATE: 10/20/2022 PRIMARY CARE PHYSICIAN: No primary care provider on file. CHIEF COMPLAINT: right eyelid swelling and erythema HPI: Ms. Banuelos is a 57 yof with COPD, active tobacco abuse, anxiety, HTN, sent from OS [[place] [facility]] for evaluation of right eye swelling, erythema and pain with movement. Right eye swelling, erythema and pain with movement - she noticed since over a month. Its intermittent but for the past 4 days it has been persistent and pain was uncontrolled. She states she has seen her eye doctor 4 times and finally got an abx prescription which did not help. She reports subjective fever and chills. She was evaluated by Ophthalmology, recommended orbital bx to r/o inflammation. ENT recommended biopsy would not be required as she has improved with abx. Smokes too many to count. I quit alcohol and I can't quit everything - she says Denied chest pain but was coughing and anxious during my exam FUNCTIONAL STATUS: independent ED VITALS: ED Triage Vitals [10/20/22 0839] Temperature BP Heart Rate Respiratory Rate SpO2 Weight 98.2 ???F (36.8 ???C) 149/55 85 16 95 % -- ED MEDS: Medications ARIPiprazole (ABILIFY) tablet (has no administration in time range) itkpbbx-flnipy-gjfuogck (CREON) 04260 units capsule (12,000 Units Oral Given 10/20/22 1645) lisinopril (ZESTRIL) tablet (10 mg Oral Given 10/20/22 1645) hydrOXYzine (ATARAX) tablet (has no administration in time range) oxyCODONE immediate release tablet (has no administration in time range) HYDROmorphone (DILAUDID) 1 mg/mL injection (has no administration in time range) enoxaparin (LOVENOX) 40 MG/0.4ML injection 40 mg (has no administration in time range) vancomycin (VANCOCIN) 1,250 mg/250 mL iv soln (ROOM TEMP PREMIX) (has no administration in time range) vancomycin dosing pharmacy consult (has no administration in time range) atorvastatin (LIPITOR) tablet (has no administration in time range) albuterol (PROVENTIL) (2.5 MG/3ML) 0.083% nebulizer solution (has no administration in time range) albuterol (PROVENTIL) (2.5 MG/3ML) 0.083% nebulizer solution (has no administration in time range) ipratropium (ATROVENT) 0.02 % nebulizer solution (has no administration in time range) ipratropium-albuterol (DUO-NEB) 0.5-2.5 (3) MG/3ML nebulizer solution (has no administration in time range) esomeprazole (NEXIUM) capsule (has no administration in time range) diphenhydrAMINE (BENADRYL) 50 MG/ML injection (has no administration in time range) piperacillin-tazobactam in D5W (ZOSYN) 3,375 mg in dextrose 50 mL ivpb (has no administration in time range) morphine sulfate 4 MG/ML injection (4 mg Intravenous Push Given 10/20/22 0943) ondansetron (ZOFRAN) 4 MG/2ML injection (4 mg Intravenous Push Given 10/20/22 0943) morphine sulfate 4 MG/ML injection (4 mg Intravenous Push Given 10/20/22 1418) Medical Hx: No past medical history on file. Surgical Hx: No past surgical history on file. Medications PRIOR to arrival: No current facility-administered medications on file prior to encounter. No current outpatient medications on file prior to encounter. Allergies: Not on File FMH: No family history on file. Social Hx: Smokes too many to count. I quit alcohol and I can't quit everything - she says ALLERGIES: Not on File Review of Systems Constitutional: Positive for fever. Eyes: Positive for blurred vision, double vision, pain, discharge and redness. Skin: Positive for itching. Psychiatric/Behavioral: The patient is nervous/anxious. All other systems reviewed and are negative. General: no apparent distress Right eye: right periorbital erythema, and edema much improved from her (home pic), dilated pupils [returned from oph eval], and inflamed sclera HENT: atraumatic Eyes: EOMI, anicteric and non-injected sclera Neck: trachea midline, no nuchal rigidity Cardiovascular: regular rate and rhythm, no murmurs or rubs or gallops Pulm: clear to auscultation bilaterally, no accessory muscle use Abd: soft, non-distended, non-tender without rebound or guarding Back: nontender without bony step-offs or deformities : no CVAT Extremities: WWP, no edema Neuro: A AND O, no focal deficits, strength and sensation intact in four extremities Psych: appropriate mood and affect Reviewed labs and images SUMMARY Ms. Banuelos is a 57 yof with COPD, active tobacco abuse, anxiety, HTN, sent from OSH [[facility]] admitted with right orbital cellulitis Assessment Principal Problem: Orbital cellulitis on right Active Problems: Chronic bronchitis (HCC) Anxiety Tobacco abuse HTN (hypertension) Ophthalmology and ENT is consulted - following Plan MRI orbit w/wo is ordered. CT chest w/o. Empiric abx Vancomycin and Zosyn [she had rash with penicillins as kid, denied anaphylactic react (more content not included)...[employer] [id number] History of Present illness Narrative* Jeffery Jin MD - 10/20/2022 12:44 PM EST New consult from ED - new onset periocular swelling, redness for over a month, fluctuating - had been getting better on PO, but then worsened - no history of trauma or sinusitis - says eyelids infermittently swollen shut - localized throbbing headache, pain with EOM, kacie supraduction - presented to outside ED that did not have beds, sent to main campus for possible admission for orbital cellulitis - received one dose of clindamycin, apparently improving - PMH of COPD with recent exacerbation, ETOH hx of pancreatitis - Outside ED labs: WBC 13.9, ESR 75, CRP 42 - CT from OSH at 1900 on 10/19/22 not showing abscess Exam - VA 20/25-2 cc OD, 20/40-1 cc OS - IOP 14/12 - no APD - color plates full OU - EOM with pain, -2 infraduction, -1 supraduction OD - dane 15, 15 at 116 - boggy periorbital tissue with congested conjunvita - SLE exam otherwise unremarkable - DFE without evidence of optic neuropathy, retinal folds, vascular congestion 1. Periorbital/orbital swelling, OD - Ddx: NSOI, IgG4, orbital cellulitis, systemic inflammation (GPA, RA, SLE, Graves), orbital malignancy (less likely) - suspect most likely non-specific orbital inflammation given time course and CT from OSH without abscess or significant sinus disease; additionally, lateral rectus on right is grossly enlarged compared to the left - inflammatory markers elevated on recent labs - while infectious orbital cellulitis remains on differential, no apparent abscess to fit timeline or appearance on exam Recommendations: - needs MRI orbit with and without contrast - continue antibiotic coverage, consider ID consultation - would strongly suggest orbital biopsy if possible with ENT as there is high suspicion for inflammatory cause, in which case IV steroids would be necessary - Ancillary testing: - ARUNA - CXR - ANCA - IgG4 - Thyroid labs (TSH/T3/T4) Opthalmology will continue to follow for signs of optic neuropathy Please page with worsening vision, changing pupil exam, worsening swelling/proptosis on exam Jeffery Jin MD Ophthalmology Resident PGY-[address] Guerin documented in this [id number] Telephone encounter Note* Telephone Encounter - Jeffy Garner MD - 10/20/2022 5:17 AM EST I was called by [facility] regarding a transfer from [facility]. That facility is requesting transfer because patient needs ophthalmology evaluation. The clinical history is 57 yo female with PMH of HTN, HLD, COPD, GERD, pancreatitis, prior alcohol abuse who presents with right eye vision loss and pain. Patient has been following with ophthalmology for preseptal cellulitis with new concern for transformation to orbital cellulitis. Patient endorses vision changes and pain with eye movements. CT imagingin ED with signs of orbital cellulitis, no abscess seen. Patient started on clindamycin due to penicillin allergy. WBC 13, ESR/CRP elevated. Discussed with provider at [facility], advised they shoulddiscuss case with ophthalmology as patient may benefit from ED to ED transfer rather than direct admission to medicine for earlier ophthalmology evaluation. Patient is not accepted to medicine at this time, 5:18 AM 10/20/22. Jeffy Garner MD [id number] Miscellaneous Notes* Telephone Encounter - Jeffy Garner MD - 10/20/2022 5:17 AM EST I was called by [facility] regarding a transfer from [facility]. That facility is requesting transfer because patient needs ophthalmology evaluation. The clinical history is 57 yo female with PMH of HTN, HLD, COPD, GERD, pancreatitis, prior alcohol abuse who presents with right eye vision loss and pain. Patient has been following with ophthalmology for preseptal cellulitis with new concern for transformation to orbital cellulitis. Patient endorses vision changes and pain with eye movements. CT imagingin ED with signs of orbital cellulitis, no abscess seen. Patient started on clindamycin due to penicillin allergy. WBC 13, ESR/CRP elevated. Discussed with provider at [facility], advised they shoulddiscuss case with ophthalmology as patient may benefit from ED to ED transfer rather than direct admission to medicine for earlier ophthalmology evaluation. Patient is not accepted to medicine at this time, 5:18 AM 10/20/22. Jeffy Garner MD documented in this [id number] Discharge summary Author Mo Velasco [facility] October 20, 2022 5:55am Note Date/Time October 19, 2022 7 :10pm [facility] Medical Records Department [address] [place] [address] Emergency Department Summary 10/19/22 MR#: [id number] Acct: [id number] Name: GRACIE BANUELOS Rep #:[id number] : 1965 57 From: Tasneem Dykes MD PCP: CARMEN STAHL Status:REG ER Location: ED ADDENDUM by Dr. Mo Velasco DO on 10/20/22 at 0555 Patient has been in the department waiting for bed availability at [facility]. She was a level 1 initially multiple callbacks they are unable to deliver a bed. I spoke with the patient she was okay with trying other hospitalsystems in the [place] area. Her visual acuity obtained 20/40 OD, 20/50 OS, 20/70 OU. She is treated for additional pain in the ED. She was given second dose of antibiotic around 4:30 AM. I spoke with [facility] transfer line and hospitalist Dr. Garner discussed her history and findings. He states with orbital cellulitis he would like optical to see sooner rather than later and he will admit under his service once they see. Recommended going through the emergency department. Transfer line reach out to ophthalmology, patient will be seen in the ED. Patient excepted to Dr. Bettencourt in the ED. Patient be transported up there for operative evaluation and plan medicine admission. 10/20/22 0555<Electronically signed by Mo Gray> Cosigner Signature (if applicable): cc: WARNING COORDINATION METEOROLOGIST-C SOILA EASTON ~* Signed HPI History of Present Illness Chief Complaint: Eye Problem Detail of Chief Complaint: Right eye redness and pain Informant: patient Onset/Context/Timing Location: Right Eye Onset: Month(s) (1 month) Context: Gradual Onset Narrative Narrative: Patient presents with right periorbital redness and swelling that is been ongoing for the past month. Patient reports irritation to her eye with decreased vision. [facility]. She was started on oral azithromycin 3 days ago and had previously been given eyedrops. She states he was hoping to get a CAT scan later this week if she was not improving. He had advised her that if the symptoms do not improve she should go to the emergency room. [facility] Medical History Abdominal pain Alcohol abuse Alcoholic hepatitis Anemia Anxiety and depression Arthritis Asthma Benign hypertension Chronic pancreatitis COPD (chronic obstructive pulmonary disease) Diarrhea GERD (gastroesophageal reflux disease) History of back problems HPV (human papilloma virus) infection Nicotine dependence, cigarettes, uncomplicated Tobacco abuse Unintentional weight loss Home Medications cholecalciferol (vitamin D3) 50 mcg (2,000 unit) capsule 50 mcg PO DAILY SUPPLEMENT 12/29/18 [History Last Taken 06/11/21] lorazepam 0.5 mg tablet 0.5 - 1 mg PO DAILY PRN PRN Anxiety 04/19/19 [History Last Taken 06/10/21 21:00] erhlyy-kkkpplkw-zgfjfni 24,000-76,000-120,000 unit capsule,delayed rel 3 ea PO DAILY pancreas 12/10/19 [History Last Taken 06/11/21] pantoprazole 40 mg tablet,delayed release 40 mg PO DAILY GERD 08/12/20 [History Last Taken 06/11/21] albuterol sulfate 90 mcg/actuation aerosol inhaler (Ventolin HFA) 2 puff inhalation Q4H PRN shortness of breath or wheezing #18 grams 11/14/20 [Rx Last Taken Unknown] aripiprazole 5 mg tablet (Abilify) 5 mg PO QHS mood 01/22/21 [History Last Taken 06/10/21] buspirone 10 mg tablet 10 mg PO TID PRN Anxiety 01/22/21 [History Last Taken Unknown] hydroxyzine pamoate 25 mg capsule 25 mg PO QHS sleep 09/15/21 [History Last Taken 06/10/21] ibuprofen 400 mg tablet 400 mg PO Q4H pain 06/12/21 [History Last Taken Unknown] fluticasone fur. 100 mcg-umeclid 62.5 mcg-vilant 25 mcg inhalat.powder (Trelegy Ellipta) 1 inh inhalation DAILY COPD #60 ea 09/10/21 [Rx Last Taken Unknown] lisinopril 10 mg tablet 10 mg PO DAILY 01/16/22 [History Last Taken Unknown] melatonin 10 mg tablet,extended release 10 mg PO DAILY 01/16/22 [History Last Taken Unknown] mirtazapine 45 mg tablet 45 mg PO DAILY 01/16/22 [History Last Taken Unknown] albuterol sulfate 2.5 mg/3 mL (0.083 %) solution for nebulization 2.5 mg (3 mL) inhalation Q4H PRN #25 vials 03/03/22 [Rx Last Taken Unknown] benzonatate 100 mg capsule 200 mg PO TID PRN PRN Cough #20 caps 03/03/22 [Rx Last Taken Unknown] meloxicam 15 mg tablet 15 mg PO DAILY 10/19/22 [History Last Taken Unknown] Allergy/AdvReac Type Severity Reaction Status Date / Time Penicillins Allergy Hives Verified 10/19/22 18:59 hydrocodone [From Bode] AdvReac Itching Verified 10/19/22 18:59 Family History Mother Diabetes Hypertension Heart disease High cholesterol Arthritis Thyroid disorder Brother Hypertension Sister Cancer cervical Thyroid disorder Father Kidney disease Daughter Thyroid disorder Surgical History History of appendectomy History of colonoscopy History of tubal ligation Social History Smoking Status: Current every day smoker tobacco type: cigarettes Tobacco: How many years used: 30 second hand exposure: Yes alcohol intake: current alcohol intake frequency: 3 or more drinks per day Alcohol type: beer substance use type: does not use caffeine: Yes ROS ROS ED Constitutional Constitutional ED: Denies chills or fever(s) Eyes Eyes: Reports blurry vision right, change in vision right and other Details: Periorbital redness and swelling ENT ENT ED: Denies rhinorrhea or sore throat Cardiovascular Cardiovascular: Denies chest pain or palpitations Respiratory/Chest Respiratory/Chest: Denies cough or dyspnea Gastrointestinal Gastrointestinal: Denies abdominal pain, diarrhea, nausea or vomiting Genitourinary Genitourinary ED: Denies dysuria Musculoskeletal Musculoskeletal: Denies back pain or extremity pain Integumentary Denies Abrasions or rash Neurologic Neurologic: Denies headache(s) or weakness Psychiatric Psychiatric: Denies anxiety or depression Allergic/Immunologic Allergic/Immunologic ED: Denies lip swelling or urticaria EXAM Physical Exam Const Vital Signs: 10/19/22 18:57 Temperature 97.1 F L Temperature Source Temporal Pulse Rate 114 H Respiratory Rate 20 H Blood Pressure 163/100 H Blood Pressure Mean 121 Pulse Ox 93 Oxygen Delivery Method Room Air Positive well nourished and well developed General Appearance ED: well developed HEENT Reports normocephalic and head/scalp atraumatic Eyes Eyes Narrative: Mild right periorbital edema and erythema. Right eye is injected. Extraocular movements are fully intact. No ptosis noted. Neck supple Chest Wall inspection of chest normal and palpation of chest normal Resp normal respiratory effort Resp Narrative: Mild expiratory wheezes. Cardio regular rhythm Cardio Narrative: Tachycardia. GI normal to inspection, nondistended, normoactive bowel sounds Palpation: soft Back/Spine no CVA tenderness Extremity normal to inspection Neuro oriented x3 and no sensory deficits noted Sensorium / Orientation: alert Motor Exam: strength 5/5 throughout Psych mental status grossly normal MDM MDM MDM Narrative Medical decision making narrative: Patient was given fentanyl for pain. Lab work obtained including sed rate and CRP. CT of the orbits with contrast obtained to evaluate for preorbital or orbital cellulitis. Lab Data Attestation: I reviewed the patient's lab results. Labs: Impressions CT Orbit Sella Inner 10/19/22 19:05 IMPRESSION: 1. Marked abnormality of the soft tissues of the RIGHT orbit including preseptal soft tissue swelling consistent with a cellulitis. Extensive enhancement of the conjunctival surface consistent with extensive conjunctivitis. There is enhancement of the RIGHT lacrimal gland consistent with dacryoadenitis. 2. Significant soft tissue thickening and edema along the anterior lateral aspect of the extraconal compartment of the RIGHT orbit. Findings consistent with orbital cellulitis, however no organized fluid collections or orbital abscess noted. No evidence of orbital compartment syndrome. 3. Normal appearance of the globes, ocular lenses and optic nerves bilaterally. 4. Normal appearance of the soft tissues of the LEFT orbit. 5. Chronic RIGHT maxillary sinus mucosal thickening. Electronically Signed: Murtaza Stinson MD at 20:01 EST , 10/19/22 19:05 CT Orb [Orb Sella Post Fossa Ear W/CON] [CT] Stat Laboratory Results 10/19/22 10/19/22 19:15 19:15 WBC 13.9 H RBC 4.87 Hgb 13.6 Hct 41.4 MCV 85.0 MCH 27.9 MCHC 32.9 RDW Std Deviation 41.5 RDW Coeff of Min 13.2 Plt Count 384 MPV 9.6 Immature Gran % (Auto) 0.700 Neut % (Auto) 63.4 Lymph % (Auto) 23.6 [place] % (Auto) 7.1 Eos % (Auto) 4.4 Baso % (Auto) 0.8 Absolute Neuts (auto) 8.8 H Absolute Lymphs (auto) 3.28 Nucleated RBC % 0 ESR 75 H Sodium 137 Potassium 3.8 Chloride 107 Carbon Dioxide 26.0 Anion Gap 4 L BUN 7 Creatinine 0.62 Estim Creat Clear Calc 80.82 Est GFR (MDRD) Af Amer 127 Est GFR (MDRD) Non-Af 105 BUN/Creatinine Ratio 11.3 Glucose 97 Calcium 9.5 C-React Prot Ext Range 42.60 H Treatment and Re-Evaluation Narrative: CBC reveals elevated white count at 13.9 but no left shift is appreciated. Sed rate is 75 and CRP is 42.6. Chemistry studies are unremarkable. CT scan of the orbits with IV contrast reveals abnormality in the soft tissues of the right orbit including preseptal soft tissue swelling consistent with a cellulitis. There is extensive enhancement of the conjunctival surface as well as the right lacrimal duct. There is significant soft tissue thickening and edema along the anterior lateral aspect of the extraconal compartment of the right orbit. These findings are consistent with orbital cellulitis, however no organized fluid collection or abscesses noted. There is no evidence of orbital compartment syndrome. I spoke with Dr. Jurado, on-call Dr. Acosta, her sr. [employer] system administrator. He advises that if the patient had a CT read is orbital cellulitis she needs to be transferred to a tertiary care center where either ENT or orbital plastics would be available to closely monitor her for the development of an abscess. Patient has been given a dose of clindamycin here. She is given a dose of hydralazine to help with her high blood pressure. We spoke with both hospitals in [place] who are not excepting transfers at this time. Patient has been discussed with [facility] and patient has been accepted as a level 1 transfer. We are awaiting bed at this time. Discharge Plan Triage Chief Complaint: Eye Problem ED Provider: Tasneem Dykes Dx/Rx/DC Orders Clinical Impression: Cellulitis of right orbit Prescriptions: No Action albuterol sulfate [Ventolin HFA] 90 mcg/actuation HFA aerosol inhaler 2 puff INHALATION Q4H PRN (Reason: shortness of breath or wheezing) Qty: 18 6RF lisinopril 10 mg tablet 10 mg PO DAILY mirtazapine 45 mg tablet 45 mg PO DAILY melatonin 10 mg tablet extended release 10 mg PO DAILY cholecalciferol (vitamin D3) 2,000 UNIT capsule 50 mcg PO DAILY lorazepam 0.5 tablet 0.5 - 1 mg PO DAILY PRN PRN (Reason: Anxiety) cxzrdl-jytlxtjy-vowtpsb 1 CAPSULE capsule 3 ea PO DAILY pantoprazole 40 MG tablet 40 mg PO DAILY buspirone 10 mg Tablet 10 mg PO TID PRN (Reason: Anxiety) aripiprazole [Abilify] 5 mg Tablet 5 mg PO QHS ibuprofen 400 mg Tablet 400 mg PO Q4H hydroxyzine pamoate 25 mg Capsule 25 mg PO QHS benzonatate [benzonatate] 100 MG capsule 200 mg PO TID PRN PRN (Reason: Cough) Qty: 20 0RF albuterol sulfate 2.5 mg /3 mL (0.083 %) solution for nebulization 2.5 mg inhalation Q4H PRN Qty: 25 3RF Rx Instructions: Use q4 hours and PRN for wheezing meloxicam 15 mg tablet 15 mg PO DAILY Trelegy Ellipta 100-62.5-25 mcg blister with device 1 inh inhalation DAILY Qty: 60 6RF Primary Care Provider: SOILA EASTON Referrals: SOILA EASTON WARNING COORDINATION METEOROLOGIST-C [Primary Care Provider] - Disposition Disposition: Acute Care Hospital Discharge Location: [facility] What to do if you have Problems For any increased pain, shortness of breath, bleeding, nausea or vomiting, chestpain, or any unexpected problems, contact your Primary Care Provider. Call [facility] ([phone]) or report to the closest Emergency Room. Call 911 if necessary. 10/19/222224 <Electronically signed by Tasneem Dykes MD> Cosigner Signature (if applicable): CC: WARNING COORDINATION METEOROLOGIST-Nichole EASTON ~ Signed [facility] Work Phone: [phone]) 507-833211-30-2022 Instructions* Patient Instructions* Soila Easton APRN.CNP - 08/27/2022 1:16 PM EST Call [facility] and ask how to safely use your portable oxygen. Start trelegy daily as prescribed by pulmonology Use your oxygen at all times at 2L Use your albuterol inhaler as prescribed for shortness of breath. [facility] History of Present illness Narrative* Soila Easton APRN.CNP - 08/27/2022 12:53 PM EST CC: Patient presents with: Recheck: [facility] ER follow up, SOB, fevers in evenings HPI Gracie Banuelos is a 57 year old female who presents today for ER follow-up. Facility: [facility] ER Date of visit: 08/22/22 Reason for visit: weeks of nonproductive cough, shortness of breath, fever. Hospital course: Blood work unremarkable, CTA of chest negative for PE or pneumonia. Diagnosis: COPD exacerbation and virus Discharge: Home with prednisone burst for 5 days Current symptoms: No improvement in shortness of breath, still with nonproductive cough, feverish and sweaty at night, diarrhea, and nausea. Denies sinus drainage, vomiting, abdominal pain, difficulty or pain urinating, On arrival to office pulse ox was 82% but patient did not bring her home oxygen with her as she is supposed to be on 2L continuously. Pulse ox increased to 93% with oxygen application. States she is unsure how to appropriately reel hooker her portable oxygen. Also does not wear her oxygen at home unless she is very short of breath. Has not been taking her trelegy, does not wear her oxygen at home. Sees [facility] andwas instructed by them to go to ER. Has not scheduled a follow up appointment. Needs refill on her albuterol inhaler. Does not use albuterol often. REVIEW OF SYSTEMS General: no fevers, no chills, no night sweats, no recurrent infections, no change in appetite, no change in energy, and no significant changes in weight Respiratory: See HPI Cardiovascular: no chest pain, no chest pressure, no palpitations, and no swelling GI: See HPI : No history of dysuria, frequency or incontinence Skin: Negative for lesions, rash, and itching Neurologic: No weakness, numbness, tingling, dizziness, syncope. PAST MEDICAL HISTORY Diagnosis Date Acute exacerbation of chronic obstructive airways disease (HCC) Alcohol dependence in remission (HCC) 07/10/2015 Alcohol use disorder 08/27/2017 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 pancreatitis Alcoholic hepatitis 05/18/2012 Alcoholic liver disease (HCC) 11/16/2013 Anemia Anxiety with depression Asthma Chronic hypoxemic respiratory failure (HCC) COPD (chronic obstructive pulmonary disease) (HCC) 05/25/2012 DDD (degenerative disc disease), cervical 09/03/2018 Diaphragmatic hernia without mention of obstruction or gangrene Diarrhea Diverticulosis GERD (gastroesophageal reflux disease) Hemorrhoids HLD (hyperlipidemia) HTN (hypertension) Human papillomavirus in conditions classified elsewhere and of unspecified site Irritable bowel syndrome with both constipation and diarrhea 08/27/2017 Lumbar disc disease with radiculopathy 06/18/2012 Other and unspecified alcohol dependence, unspecified drinking behavior Ovarian cyst, right 12/27/2012 Pancreatitis chronic 05/26/2011 Pneumonia of both lungs due to infectious organism 2018 Stage 3 severe COPD by GOLD classification ([facility]) 2018 Tobacco use greater than 30 years Unspecified hemorrhoids without mention of complication Urine, incontinence, stress female 11/24/2014 PAST SURGICAL HISTORY Procedure Laterality Date APPENDECTOMY at age 14 COLONOSCOPY 04/15/[address], [address] Paul Perez. COLONOSCOPY 01/23/2015 2-Tubular adenomas. Dr. Víctor Lopez. COLONOSCOPY 07/29/2017 normal COLONOSCOPY - DIAGNOSTIC 01/10/2021 10 yr interval EGD 10/03/[address] Paul Perez. EGD 07/29/2017 mild gastritis, otherwise normal EGD 01/10/2021 EGD EUS 12/05/2019 mild gastritis, chronic pancreatitis with PD stone L'SCOPE CHOLECYSTECTOMY 06/14/2021 TUBAL LIGATION HX 1986 ALLERGIES Hydrocodone, Penicillins, and Valium [Diazepam] MEDICATIONS meloxicam (MOBIC) 15 mg tablet Take 1 tablet by mouth once daily. With food. lisinopril (ZESTRIL, PRINIVIL) 10 mg tablet Take 1 tablet by mouth once daily. ggwguappsjt-myvijlfpm-xoqqxzxl (TRELEGY ELLIPTA) 100-62.5-25 mcg inhalation powder DAILY miznmg-vqoxelmb-kvbtrnq (CREON 24) 24,000-76,000 -120,000 unit delayed release capsule Take 3 capsules by mouth once daily. Cholecalciferol, Vitamin D3, 50 mcg (2,000 unit) cap TAKE 1 CAPSULE BY MOUTH DAILY simvastatin (ZOCOR) 20 mg tablet Take 1 tablet by mouth daily at bedtime. hydrOXYzine pamoate (VISTARIL) 25 mg capsule Take 1 capsule by mouth daily at bedtime. pantoprazole DR (PROTONIX) 40 mg tablet Take 1 tablet by mouth once daily. ondansetron orally disintegrating (ZOFRAN ODT) 4 mg disintegrating tablet Take 1 tablet by mouth every 6 hours as needed for nausea/vomiting. ferrous sulfate (SLOW FE) 140 mg (45 mg iron) TbER Take 1 tablet by mouth twice daily with meals. ziprasidone (GEODON) 20 mg capsule Patient unsure on dosage - prescribed by Dr. aTlamantes. mirtazapine (REMERON) [address] tablet Pres[address] Talamantes. multivitamin tablet Take 1 tablet by mouth once daily. ARIPiprazole (ABILIFY) 5 mg tablet Take by mouth. busPIRone (BUSPAR) 10 mg tablet Take 1 tablet by mouth three times daily. albuterol HFA (VENTOLIN HFA) 90 mcg/actuation inhaler Inhale 2 Puffs as instructed four times dailyas needed. Ear Thermometer misc 1 Each once daily as needed. albuterol (PROVENTIL) 2.5 mg /3 mL (0.083 %) nebulizer solution Use 3 mL via nebulizer one time only for 1 dose. Use over 5-15minutes. OXYGEN, HOME THERAPY, Inhale as instructed as directed. Patient is on 2-3 liters COMPOUNDED PRESCRIPTION Pulse Oximetry COMPOUNDED PRESCRIPTION nebulizer supplies (tubing) FAMILY HISTORY Problem Relation Age of Onset Diabetes Mother Hypertension Mother Rheumatologic disease Mother other (lung cancer) Mother Lung Cancer Mother Diabetes Sister Cervical Cancer Sister X 2 Hypertension Brother Lung Cancer Brother Social History Tobacco Use Smoking status: Every Day Packs/day: 0.50 Years: 30.00 Pack years: 15.00 Types: Cigarettes Smokeless tobacco: Never Vaping Use Vaping Use: Never used Substance Use Topics Alcohol use: Not Currently Comment: Alcoholic - November 2020 - last drink Drug use: Not Currently Types: Marijuana Comment: rarely- last time used was Oct 2019 PHYSICAL EXAM BP 132/80 Pulse 80 Temp 36.8 C (98.3 F) (Temporal) Resp 16 Wt 59.9 kg (132 lb) LMP 06/08/2010 SpO2 (!) 82% BMI 23.38 kg/m General Appearance: well appearing, in no acute distress, alert Skin: Skin color, texture, turgor normal for age; Eyes: conjunctiva pink and moist, no icterus, sclera white, non-injected Ears: external ears normal to inspection and palpation, canals clear, Left tympanic membrane normal. , Right tympanic membrane normal Nose/sinus: Nares normal. Septum midline. Mucosa normal. No drainage. Neck: Thyroid normal size and symmetric without palpable nodules, No adenopathy Oropharynx: tongue midline and normal, soft palate, uvula, and tonsils normal, palpation of salivary glands negative Lymph nodes: No cervical lymphadenopathy and No supraclavicular lymphadenopathy Lungs: Expiratory wheezes throughout. No rhonchi, rales. Heart: RRR without murmur, gallop, or rubs. No ectopy MAMMOGRAM due on 08/28/2021 ALPHA-1 ANTITRYPSIN DEFICIENCY SCREENING due on 04/08/2023 PAP TESTING due on 04/17/2023 HIV SCREENING due on 04/17/2023 SHINGRIX VACCINE(1 of 2) due on 04/17/2023 COVID-19 VACCINE(3 - Booster for Pfizer series) due on 04/17/2023 ANNUAL PCP TEAM CHRONIC DISEASE VISIT due on 07/18/2023 BP CONTROLLED (<130/80) due on 07/18/2023 COLORECTAL CANCER SCREENING due on 01/11/2024 HPV TESTING due on 07/05/2024 DIABETES SCREEN due on 04/17/2025 LIPID SCREEN due on 04/17/2027 PNEUMOCOCCAL(3 - PPSV23 if available, else PCV20) due on 2028 SPIROMETRY Completed INFLUENZA Completed HEPATITIS C SCREENING Completed DTAP,TDAP,TD Discontinued DATA REVIEWED: Outside chart from [facility] reviewed. ASSESSMENT/PLAN: 1. Chronic obstructive pulmonary disease, unspecified COPD type (HCC) - ICD9: 496, ICD10: J44.9 - no respiratory distress noted - discussed with patient importance of taking her trelegy daily as prescribed and using albuterol when needed. Feel symptoms are from uncontrolled COPD and low oxygen levels. - Call [facility] and ask how to safely use your portable oxygen. Start trelegy daily as prescribed by pulmonology Use your oxygen at all times at 2L Use your albuterol inhaler as prescribed for shortness of breath. - if no improvement with utilizing her medications and oxygen, instructed her to call office and wewould order an antibiotic along with another dose of steroids - follow up with either me or pulmonology on Thursday - go to ER for increased shortness of breath, chest pain, or other urgent concern. Prescription instructions reviewed with patient as applicable. Potential red flag symptoms discussed with the patient. Reviewed appropriate action plan to take if red flag symptoms occur. Patient agreeable to treatment plan. Soila Easton APRN.CNP [facility] History of Present illness Narrative* Soila Easton APRN.CNP - 07/18/2022 10:01 AM EDT CC: Patient presents with: Recheck: 3 month follow up Immunizations: Flu vaccination HPI Gracie Banuelos is a 57 year old female who presents today for routine follow up. HTN: Ms. Banuelos indicates that she is feeling well and denies any symptoms referable to elevated blood pressure. Specifically denies headache, chest pain, palpitations, increase in chronic dyspnea, and peripheral edema. Patient denies any side effects of her medication(s) and is compliant with theirregimen. She does not check BP's generally. Gracie denies regular aerobic exercise. She watches [employer] for sodium, low fat and low cholesterol most of the time. Last 3 Encounter BP Readings: Date: BP: 07/18/2022 128/72 05/27/2022 116/72 04/17/2022 128/72 COPD: last exacerbation one month ago. Sees pulmonology for this. Had a recent issue with some sinus congestion and has had ear pain to the right ear for over a week now. Denies any fever, sinus congestion/pressure, headaches, drainage from ear, sore throat, or increase in her chronic cough, wheezing, or shortness of breath. Was started on meloxicam for chronic arthritic pain 3 months ago. States it has helped her leg painbut not completely. Legs tend to feel very heavy at time. Also reports bilateral hand aching as well. Has had these for rmany years. Mother has history of RA. Patient was tested for this over 8 yearsago and was negative at that time. Denies any edema, redness, decreased ROM, or change in sensation. Alcohol induced chronic pancreatitis. Following with GI again, last seen 2 months ago. Is currentlyon creon which is relieving her symptoms of diarrhea. Denies any nausea, vomiting, or abdominal pain. States she is continuing to refrain from drinking alcohol. REVIEW OF SYSTEMS General: no fevers, no chills, no night sweats, no recurrent infections, no change in appetite, no change in energy, and no significant changes in weight Respiratory: see HPI Cardiovascular: no chest pain, no chest pressure, no palpitations, and no swelling GI: See HPI Musculoskeletal: See HPI Neurologic: No headache, weakness, tingling, dizziness, memory loss, syncope. PAST MEDICAL HISTORY Diagnosis Date Acute exacerbation of chronic obstructive airways disease (HCC) Alcohol dependence in remission (HCC) 07/10/2015 Alcohol use disorder 08/27/2017 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 pancreatitis Alcoholic hepatitis 05/18/2012 Alcoholic liver disease (HCC) 11/16/2013 Anemia Anxiety with depression Asthma Chronic hypoxemic respiratory failure (HCC) COPD (chronic obstructive pulmonary disease) (HCC) 05/25/2012 DDD (degenerative disc disease), cervical 09/03/2018 Diaphragmatic hernia without mention of obstruction or gangrene Diarrhea Diverticulosis GERD (gastroesophageal reflux disease) Hemorrhoids HLD (hyperlipidemia) HTN (hypertension) Human papillomavirus in conditions classified elsewhere and of unspecified site Irritable bowel syndrome with both constipation and diarrhea 08/27/2017 Lumbar disc disease with radiculopathy 06/18/2012 Other and unspecified alcohol dependence, unspecified drinking behavior Ovarian cyst, right 12/27/2012 Pancreatitis chronic 05/26/2011 Pneumonia of both lungs due to infectious organism 2017 Stage 3 severe COPD by GOLD classification (HCC) 2018 Tobacco use greater than 30 years Unspecified hemorrhoids without mention of complication Urine, incontinence, stress female 11/24/2014 PAST SURGICAL HISTORY Procedure Laterality Date APPENDECTOMY at age 14 COLONOSCOPY 04/15/[address], [address] Paul Perez. COLONOSCOPY 01/23/2015 2-Tubular adenomas. Dr. Víctor Lopez. COLONOSCOPY 07/29/2017 normal COLONOSCOPY - DIAGNOSTIC 01/10/2021 10 yr interval EGD 10/03/[address] Paul Perez. EGD 07/29/2017 mild gastritis, otherwise normal EGD 01/10/2021 EGD EUS 12/05/2019 mild gastritis, chronic pancreatitis with PD stone L'SCOPE CHOLECYSTECTOMY 06/14/2021 TUBAL LIGATION HX 1986 ALLERGIES Hydrocodone, Penicillins, and Valium [Diazepam] MEDICATIONS lisinopril (ZESTRIL, PRINIVIL) 10 mg tablet Take 1 tablet by mouth once daily. benzonatate (TESSALON PERLE) 100 mg capsule Take 100 mg by mouth three times daily as needed. mnknvfhaarr-znfiwabrv-fqrwuxan (TRELEGY ELLIPTA) 100-62.5-25 mcg inhalation powder DAILY melatonin 10 mg TbER iglscy-vjzutfjx-jhkwibm (CREON 24) 24,000-76,000 -120,000 unit delayed release capsule Take 3 capsules by mouth once daily. meloxicam (MOBIC) 7.5 mg tablet Take 1 tablet by mouth once daily. Take with food. Cholecalciferol, Vitamin D3, 50 mcg (2,000 unit) cap TAKE 1 CAPSULE BY MOUTH DAILY simvastatin (ZOCOR) 20 mg tablet Take 1 tablet by mouth daily at bedtime. hydrOXYzine pamoate (VISTARIL) 25 mg capsule Take 1 capsule by mouth daily at bedtime. pantoprazole DR (PROTONIX) 40 mg tablet Take 1 tablet by mouth once daily. ondansetron orally disintegrating (ZOFRAN ODT) 4 mg disintegrating tablet Take 1 tablet by mouth every 6 hours as needed for nausea/vomiting. ferrous sulfate (SLOW FE) 140 mg (45 mg iron) TbER Take 1 tablet by mouth twice daily with meals. ziprasidone (GEODON) 20 mg capsule Patient unsure on dosage - prescribed by Dr. Talamantes. mirtazapine (REMERON) [address] tablet Prescribed by Dr. Talamantes. multivitamin tablet Take 1 tablet by mouth once daily. ARIPiprazole (ABILIFY) 5 mg tablet Take by mouth. busPIRone (BUSPAR) 10 mg tablet Take 1 tablet by mouth three times daily. albuterol HFA (VENTOLIN HFA) 90 mcg/actuation inhaler Inhale 2 Puffs as instructed four times dailyas needed. Ear Thermometer misc 1 Each once daily as needed. albuterol (PROVENTIL) 2.5 mg /3 mL (0.083 %) nebulizer solution Use 3 mL via nebulizer one time only for 1 dose. Use over 5-15minutes. OXYGEN, HOME THERAPY, Inhale as instructed as directed. Patient is on 2-3 liters COMPOUNDED PRESCRIPTION Pulse Oximetry COMPOUNDED PRESCRIPTION nebulizer supplies (tubing) FAMILY HISTORY Problem Relation Age of Onset Diabetes Mother Hypertension Mother Rheumatologic disease Mother other (lung cancer) Mother Lung Cancer Mother Diabetes Sister Cervical Cancer Sister X 2 Hypertension Brother Lung Cancer Brother Social History Tobacco Use Smoking status: Every Day Packs/day: 0.50 Years: 30.00 Pack years: 15.00 Types: Cigarettes Smokeless tobacco: Never Vaping Use Vaping Use: Never used Substance Use Topics Alcohol use: Not Currently Comment: Alcoholic - November 2020 - last drink Drug use: Not Currently Types: Marijuana Comment: rarely- last time used was Oct 2019 PHYSICAL EXAM BP 128/72 Pulse 72 Resp 16 Wt 60.3 kg (133 lb) LMP 06/08/2010 BMI 23.56 kg/m General Appearance: well appearing, in no acute distress, alert Skin: Skin color, texture, turgor normal for age; Eyes: conjunctiva pink and moist, no icterus, sclera white, non-injected Ears: external ears normal to inspection and palpation, canals clear, Left tympanic membrane normal. , right TM tender on exam and with erythema - no bulging noted Nose/sinus: Nares normal. Septum midline. Mucosa normal. No drainage. Neck: Thyroid normal size and symmetric without palpable nodules, No adenopathy Oropharynx: tongue midline and normal, soft palate, uvula, and tonsils normal, palpation of salivary glands negative Lymph nodes: No cervical lymphadenopathy and No supraclavicular lymphadenopathy Lungs: Lungs clear to auscultation. No wheezing, rhonchi, rales. Heart: RRR without murmur, gallop, or rubs. No ectopy Extremities: No deformities, edema, skin discoloration, clubbing or cyanosis. Good capillary refill. Musculoskeletal: No joint swelling, deformity, or tenderness Neurological: Gait normal. Reflexes normal and symmetric. Sensation grossly intact. Health maintenance reviewed with patient: MAMMOGRAM due on 08/28/2021 INFLUENZA(1) due on 05/29/2022 ALPHA-1 ANTITRYPSIN DEFICIENCY SCREENING due on 04/08/2023 PAP TESTING due on 04/17/2023 HIV SCREENING due on 04/17/2023 SHINGRIX VACCINE(1 of 2) due on 04/17/2023 COVID-19 VACCINE(3 - Booster for Pfizer series) due on 04/17/2023 ANNUAL PCP TEAM CHRONIC DISEASE VISIT due on 04/17/2023 BP CONTROLLED (<130/80) due on 05/27/2023 COLORECTAL CANCER SCREENING due on 01/11/2024 HPV TESTING due on 07/05/2024 DIABETES SCREEN due on 04/17/2025 LIPID SCREEN due on 04/17/2027 PNEUMOCOCCAL(3 - PPSV23 if available, else PCV20) due on 2028 SPIROMETRY Completed HEPATITIS C SCREENING Completed DTAP,TDAP,TD Discontinued DATA REVIEWED: No new labs ASSESSMENT/PLAN: 1. Essential hypertension, benign - ICD9: 401.1, ICD10: I10 (primary diagnosis) - good control - Continue current medication(s) - Recommended regular aerobic exercise. - Recommend home blood pressure monitoring, to bring results in on next visit - Goal of BP <130/80 2. Multiple joint pain - ICD9: 719.49, ICD10: M25.50 - increasing meloxicam - SED RATE WESTERGREN - C-REACTIVE PROTEIN (CRP) - RHEUMATOID FACTOR BL - [place] BY IFA SCREEN - MELOXICAM 15 MG TABLET 3. 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 chronic pancreatitis (HCC) - ICD9: 577.1, ICD10: K86.0 Controlled at this time - continue to refrain from drinking alcohol - continue to follow with GI and recommendations and treatment as ordered by them. 4. Chronic obstructive pulmonary disease, unspecified COPD type (HCC) - ICD9: 496, ICD10: J44.9 - stable at this time - continue with current treatment and seeing pulmonology/. 5. Right otitis media, unspecified otitis media type - ICD9: 382.9, ICD10: H66.91 - Will begin treatment with as per antibiotic as written, see orders - Supportive care with plenty of fluids, rest, and analgesia prn. - Follow up in 3-5 days if symptoms persist or worsen. 6. Need for influenza vaccination - ICD9: V04.81, ICD10: Z23 - INFLUENZA VACCINE QUADRIVALENT 6 MO - 64 YRS IM Prescription instructions reviewed with patient as applicable. Potential red flag symptoms discussed with the patient. Reviewed appropriate action plan to take if red flag symptoms occur. Patient agreeable to treatment plan. Soila Easton APRN.IGOR documented in this encounterL[facility] Miscellaneous Notes* Telephone Encounter - Evelyn Montgomery RN - 06/25/2022 11:21 AM EDT Patient recently on antibiotic for respiratory infection. C/o vaginal itching/irritation again now.Asking for refill of diflucan for yeast infection. Please file if okay. No need to call patient back if filed. Evelyn Montgomery RN documented in this encounterL[facility]-16-[facility]22 Miscellaneous Notes* Telephone Encounter - Janene Grimm RN - 06/13/2022 4:43 PM EDT Patient has been identified by name and date of : Yes Pharmacy phones for refill(s): Requested Prescriptions Pending Prescriptions Disp Refills lisinopril (ZESTRIL, PRINIVIL) 10 mg tablet 30 tablet 11 Sig: Take 1 tablet by mouth once daily. Date of last office visit with pcp: 04/17/2022 Future Appt: 07/18/2022 Last 2 Encounter Wt Readings: Date: Wt: 05/27/2022 59.1 kg (130 lb 3.2 oz) 04/17/2022 58.5 kg (129 lb) Previous labs/tests for medication: Blood Pressure: BUN (mg/dL) Date Value 04/17/2022 11 03/26/2021 7 Sodium (mmol/L) Date Value 04/17/2022 142 03/26/2021 140 Last 1 Encounter BP Readings: Date: BP: 05/27/2022 116/72 Liver Function: ALT (U/L) Date Value 04/17/2022 16 03/26/2021 9 AST (U/L) Date Value 04/17/2022 24 03/26/2021 16 Please advise. Thank you. Janene Grimm RN documented in this encounterL[facility]-30-[facility] History of Present illness Narrative* Claudia Odonnell MD - 05/27/2022 9:23 AM EDT HPI Gracie Banuelos is a 57 year old female here today for Alcohol induced chronic pancreatitis (Alcoholic hepatitis w/o ascites ) diarrhea and weight loss. We did EGd/ EUS which showed chronic pancreatitis and PD stone. We started her on Creon and PPI. She says that he diarrhea has improved and she is gaining weight. However, she does c/o- abdominal bloating which is more prominent after food intake. She was sober for 2 years but she again drank alcohol on her birthday. She had liver US which showed heterogenous parenchyma. However, her LFT and CBC is unremarkable. Current Outpatient Medications Medication Sig benzonatate (TESSALON PERLE) 100 mg capsule Take 100 mg by mouth three times daily as needed. erkclskokmn-omukvbihn-nsiybaxg (TRELEGY ELLIPTA) 100-62.5-25 mcg inhalation powder DAILY meloxicam (MOBIC) 7.5 mg tablet Take 1 tablet by mouth once daily. Take with food. Cholecalciferol, Vitamin D3, 50 mcg (2,000 unit) cap TAKE 1 CAPSULE BY MOUTH DAILY simvastatin (ZOCOR) 20 mg tablet Take 1 tablet by mouth daily at bedtime. hydrOXYzine pamoate (VISTARIL) 25 mg capsule Take 1 capsule by mouth daily at bedtime. pantoprazole DR (PROTONIX) 40 mg tablet Take 1 tablet by mouth once daily. jzgrho-pilwagob-crexbex (CREON 24) 24,000-76,000 -120,000 unit delayed release capsule Take 3 capsules by mouth once daily. ondansetron orally disintegrating (ZOFRAN ODT) 4 mg disintegrating tablet Take 1 tablet by mouth every 6 hours as needed for nausea/vomiting. ferrous sulfate (SLOW FE) 140 mg (45 mg iron) TbER Take 1 tablet by mouth twice daily with meals. ziprasidone (GEODON) 20 mg capsule Patient unsure on dosage - prescribed by Dr. Talamantes. mirtazapine (REMERON) [address] tablet Pres[address] Dr[address] Talamantes. lisinopril (ZESTRIL, PRINIVIL) 10 mg tablet Take 1 tablet by mouth once daily. multivitamin tablet Take 1 tablet by mouth once daily. ARIPiprazole (ABILIFY) 5 mg tablet Take by mouth. busPIRone (BUSPAR) 10 mg tablet Take 1 tablet by mouth three times daily. albuterol HFA (VENTOLIN HFA) 90 mcg/actuation inhaler Inhale 2 Puffs as instructed four times dailyas needed. Ear Thermometer misc 1 Each once daily as needed. OXYGEN, HOME THERAPY, Inhale as instructed as directed. Patient is on 2-3 liters COMPOUNDED PRESCRIPTION Pulse Oximetry COMPOUNDED PRESCRIPTION nebulizer supplies (tubing) melatonin 10 mg TbER albuterol (PROVENTIL) 2.5 mg /3 mL (0.083 %) nebulizer solution Use 3 mL via nebulizer one time only for 1 dose. Use over 5-15minutes. No current facility-administered medications for this visit. ALLERGIES Allergen Reactions Hydrocodone Itching Penicillins Other: See Comments hives Valium [Diazepam] Other: See Comments cross reaction with alcohol addiction Social History Tobacco Use Smoking status: Every Day Packs/day: 0.50 Years: 30.00 Pack years: 15.00 Types: Cigarettes Smokeless tobacco: Never Vaping Use Vaping Use: Never used Substance Use Topics Alcohol use: Not Currently Comment: Alcoholic - November 2020 - last drink Drug use: Not Currently Types: Marijuana Comment: rarely- last time used was Oct 2019 PAST MEDICAL HISTORY Diagnosis Date Acute exacerbation of chronic obstructive airways disease (HCC) Alcohol dependence in remission ([facility]) 07/10/2015 Alcohol use disorder 08/27/2017 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 pancreatitis Alcoholic hepatitis 05/18/2012 Alcoholic liver disease (HCC) 11/16/2013 Anemia Anxiety with depression Asthma Chronic hypoxemic respiratory failure (HCC) COPD (chronic obstructive pulmonary disease) ([facility]) 05/25/2012 DDD (degenerative disc disease), cervical 09/03/2018 Diaphragmatic hernia without mention of obstruction or gangrene Diarrhea Diverticulosis GERD (gastroesophageal reflux disease) Hemorrhoids HLD (hyperlipidemia) HTN (hypertension) Human papillomavirus in conditions classified elsewhere and of unspecified site Irritable bowel syndrome with both constipation and diarrhea 08/27/2017 Lumbar disc disease with radiculopathy 06/18/2012 Other and unspecified alcohol dependence, unspecified drinking behavior Ovarian cyst, right 12/27/2012 Pancreatitis chronic 05/26/2011 Pneumonia of both lungs due to infectious organism 2017 Stage 3 severe COPD by GOLD classification ([facility]) 2018 Tobacco use greater than 30 years Unspecified hemorrhoids without mention of complication Urine, incontinence, stress female 11/24/2014 PAST SURGICAL HISTORY Procedure Laterality Date APPENDECTOMY at age 14 COLONOSCOPY 04/15/[address], [address] Paul Perez. COLONOSCOPY 01/23/2015 2-Tubular adenomas. Dr. Víctor Lopez. COLONOSCOPY 07/29/2017 normal COLONOSCOPY - DIAGNOSTIC 01/10/2021 10 yr interval EGD 10/03/[address] Paul Perez. EGD 07/29/2017 mild gastritis, otherwise normal EGD 01/10/2021 EGD EUS 12/05/2019 mild gastritis, chronic pancreatitis with PD stone L'SCOPE CHOLECYSTECTOMY 06/14/2021 TUBAL LIGATION HX 1986 FAMILY HISTORY Problem Relation Age of Onset Diabetes Mother Hypertension Mother Rheumatologic disease Mother other (lung cancer) Mother Lung Cancer Mother Diabetes Sister Cervical Cancer Sister X 2 Hypertension Brother Lung Cancer Brother REVIEW OF SYSTEMS Review of Systems Respiratory: Positive for shortness of breath and wheezing. Gastrointestinal: Positive for diarrhea and nausea. Heartburn All other systems reviewed and are negative. I have confirmed and edited as necessary, the PFSH and ROS obtained by others. Hemoglobin (g/dL) Date Value 04/17/2022 14.3 03/26/2021 13.0 Hematocrit (%) Date Value 04/17/2022 46.4 03/26/2021 41.5 WBC (k/uL) Date Value 04/17/2022 12.50 03/26/2021 13.50 Platelet Count (k/uL) Date Value 04/17/2022 256 03/26/2021 335 CMP: Glucose 93 04/17/2022 BUN 11 04/17/2022 Creatinine 0.62 04/17/2022 Sodium 142 04/17/2022 Potassium 4.9 04/17/2022 Chloride 106 04/17/2022 CO2 26 04/17/2022 Protein, Total 7.2 04/17/2022 Albumin 4.3 04/17/2022 Calcium 10.0 04/17/2022 Alkaline Phosphatase 118 04/17/2022 Bilirubin, Total <0.2 04/17/2022 AST 24 04/17/2022 ALT 16 04/17/2022 PHYSICAL EXAM BP 116/72 Pulse 81 Ht 5' 3 (1.60m) Wt 130 lb 3.2 oz (59.1kg) LMP 06/08/2010 BMI 23.07 kg/(m^2). General appearance: Well appearing, alert, in no acute distress, well-hydrated, well nourished. Skin: Skin color, texture, turgor normal Head: Normocephalic, no masses, lesions, tenderness or abnormalities Eyes: Anicteric sclera. Pupils are equally round. Oropharynx: Lips, mucosa, and tongue normal, teeth and gums normal, oropharynx normal Neck: Supple, no adenopathy; thyroid symmetric, normal size, no bruits Lungs: Lungs clear to auscultation. No wheezing, rhonchi, rales. Heart: RRR without murmur, gallop, or rubs. No ectopy Abdomen: Normal abdominal exam, Abdomen soft, non-tender. Bowel sounds normal. No masses, organomegaly Extremities: No deformities, edema, skin discoloration, clubbing or cyanosis. Good capillary refill. ASSESSMENT: 57 year old female patient who is in our clinic with chronic pancreatitis (ETOH related). Her liver US showed heterogenous liver parenchyma but her LFT and CBC is normal. She continues to smoke. And recently she again drank alcohol PLAN: Advised to quit drinking. Also explained to her that she has high risk to develop pancreatic cancer if she continues to smoke. Continue with Creon. RTC- 6 months Claudia Odonnell MD DATE: 05/27/22 TIME: 9:23 AM documented in this encounterLake [facility]08-25-2022 Miscellaneous Notes* Telephone Encounter - Janene Grimm RN - 05/22/2022 10:57 AM EDT Patient has been identified by name and date of : Yes Pharmacy phones for refill(s): Requested Prescriptions Pending Prescriptions Disp Refills meloxicam (MOBIC) 7.5 mg tablet 30 tablet 1 Sig: Take 1 tablet by mouth once daily. Take with food. Date of last office visit with pcp:04/17/2022 Future appt: 07/18/2022 Last 2 Encounter Wt Readings: Date: Wt: 04/17/2022 58.5 kg (129 lb) 07/18/2021 56.5 kg (124 lb 9.6 oz) Previous labs/tests for medication: Blood Pressure: BUN (mg/dL) Date Value 04/17/2022 11 03/26/2021 7 Sodium (mmol/L) Date Value 04/17/2022 142 03/26/2021 140 Last 1 Encounter BP Readings: Date: BP: 04/17/2022 128/72 Liver Function: ALT (U/L) Date Value 04/17/2022 16 03/26/2021 9 AST (U/L) Date Value 04/17/2022 24 03/26/2021 16 Please advise. Thank you. Janene Grimm RN documented in this encounterL[facility]08-05-2022 History of Present illness Narrative* Gracie Pena RT(R) - 05/02/2022 9:15 AM EDT Radiology Service Progress Note PATIENT NAME: Gracie Banuelos DATE OF SERVICE: May 02, 2022 TIME: 9:43 AM PATIENT IDENTITY VERIFICATION COMPLETED USING TWO (2) IDENTIFIERS: Name and Date of confirmedby patient verbally. FALL SCREENING: Has the patient had 2 falls in the last year or 1 fall with injury or currently using an Ambulatory Assistive Device (Walker, Cane, Wheelchair, Crutches, etc.)? No PATIENT GENDER DATA: Female. status: : No status: NO. PATIENT RELEVANT IMPLANT DATA REVIEWED: Not Applicable RADIOLOGY DEPARTMENT: Ultrasound PERIPHERAL IV DATA: Not applicable SIGNED BY: RT Jose Angel(R) May 02, 2022 9:43 AM documented in this encounterLake [facility]07-22-2022 Miscellaneous Notes* Telephone Encounter - Eda Moore LPN - 04/18/2022 9:52 AM EDT Patient has been identified by name and date of : Yes Patient phones for refill(s): Pending Prescriptions Disp Refills CHOLECALCIFEROL (VITAMIN D3) 50 MCG (2,000 UNIT) CAPSULE 30 capsule Sig: TAKE 1 CAPSULE BY MOUTH DAILY THUY: Yes Date of last office visit in primary care: 04/17/22 Last 2 Encounter Wt Readings: Date: Wt: 04/17/2022 58.5 kg (129 lb) 07/18/2021 56.5 kg (124 lb 9.6 oz) Previous labs/tests for medication: Not applicable Please advise. Thank you. Eda Moore LPN documented in this encounterLake [facility]07-21-2022 Miscellaneous Notes* Telephone Encounter - Marge Perkins RN - 04/17/2022 11:28 AM EDT [facility] called and notified of providers message and instructions. She voices understanding. Marge Perkins RN * Telephone Encounter - Soila Easton APRN.IGOR - 04/17/2022 11:15 AM EDT [facility] Ibuprofen is discontinued. Was discussed later in appointment after prescription was sent. Only fill meloxicam at this time. Patient aware she should not take ibuprofen while on meloxicam as it was discussed in appointment. Thank you Soila Easton APRN.IGOR * Telephone Encounter - Suellen Leonard LPN - 04/17/2022 11:03 AM EDT Pharmacist Colleen from [facility] calling with med question. She received an Rx today for meloxicam & ibuprofen, pharmacist states these meds should not be taken at the same time & is asking if the directions should specify how far apart to take them? Please advise. Suellen Leonard LPN documented in this encounterLake [facility]07-21-2022 History of Present illness Narrative* Soila Easton APRN.IGOR - 04/17/2022 8:59 AM EDT CC: Patient presents with: Yearly Exam: Annual Exam HPI Gracie Banuelos is a 56 year old female who presents today for annual physical exam. Exercise: denies regular aerobic exercise. Diet: Watches diet for salt (salty snacks, added salt, processed frozen/canned foods), sugary/sweetsnacks, unhealthy fats: Yes HTN and HLD: Ms. Banuelos indicates that she is feeling well and denies any symptoms referable to elevated blood pressure. Specifically denies headache, chest pain, palpitations, dyspnea and peripheral edema. Patient denies any side effects of her medication(s) and is compliant with their regimen. Shedoes not check BP's generally. Gracie denies regular aerobic exercise. She watches her diet for sodium, low fat and low cholesterol most of the time. Last 3 Encounter BP Readings: Date: BP: 04/17/2022 128/72 07/18/2021 138/76 06/19/2021 144/82 GERD: Denies heartburn, difficulty swallowing, or abdominal pain. Has noticed she can get nauseatedduring the day from all of her medications and requesting some zofran. Denies vomiting, change in weight, dark sticky stools or blood in stools. Sees Dr. Talamantes for depression and anxiety and feels this is controlled with current medications.Is refraining from alcohol, but did have a few beers on weekend. Denies any other drugusage. No suicidal ideations or hallucinations. COPD/Emphysema: Uses albuterol inhaler with walking. Uses O2 at night time and walking at 2L. Had pneumonia 2 months ago. Goes to Dr Perdue at [facility], seen last fall for routine examand has an upcoming routine appointment at the end of April. Denies fever, increase in chronic cough, increase shortness of breath, or wheezing when first waking up. Smokes 1/2 pack a day. Various joint pain to multiple joints. Has difficulty walking because ankles will hurt. Denies injury, edema, redness, weakness, or decreased ROM. Has had these for years and was previously diagnosedwith arthritis. Will take ibuprofen which somewhat helps, but requesting a daily option Alcohol related cirrhosis and chronic pancreatitis: Last Saw by Dr. Odonnell from GI in 2019 with a 3 month follow up, but never followed up. Patient states she has ascites related to cirrhosis of the liver, but has not had any abdominal imaging in years. Denies changes in skin, itchiness, change in bowels, or pain. Is on Creon for the pancreatitis, but only takes daily because it causes bloating. Reports chronic fatigue for the past 6 month but denies memory issues, increase thirst/hunger/urination, or abnormal weight changes. 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 PAST MEDICAL HISTORY Diagnosis Date Acute exacerbation of chronic obstructive airways disease (HCC) Alcohol dependence in remission (HCC) 07/10/2015 Alcohol use disorder 08/27/2017 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 pancreatitis Alcoholic hepatitis 05/18/2012 Alcoholic liver disease (HCC) 11/16/2013 Anemia Anxiety with depression Asthma Chronic hypoxemic respiratory failure (HCC) COPD (chronic obstructive pulmonary disease) (HCC) 05/25/2012 DDD (degenerative disc disease), cervical 09/03/2018 Diaphragmatic hernia without mention of obstruction or gangrene Diarrhea Diverticulosis GERD (gastroesophageal reflux disease) Hemorrhoids HLD (hyperlipidemia) HTN (hypertension) Human papillomavirus in conditions classified elsewhere and of unspecified site Irritable bowel syndrome with both constipation and diarrhea 08/27/2017 Lumbar disc disease with radiculopathy 06/18/2012 Other and unspecified alcohol dependence, unspecified drinking behavior Ovarian cyst, right 12/27/2012 Pancreatitis chronic 05/26/2011 Pneumonia of both lungs due to infectious organism 2017 Stage 3 severe COPD by GOLD classification ([facility]) 2018 Tobacco use greater than 30 years Unspecified hemorrhoids without mention of complication Urine, incontinence, stress female 11/24/2014 PAST SURGICAL HISTORY Procedure Laterality Date APPENDECTOMY at age 14 COLONOSCOPY 04/15/[address], [address] Paul Perez. COLONOSCOPY 01/23/2015 2-Tubular adenomas. Dr. Víctor Lopez. COLONOSCOPY 07/29/2017 normal COLONOSCOPY - DIAGNOSTIC 01/10/2021 10 yr interval EGD 10/03/[address] Paul Perez. EGD 07/29/2017 mild gastritis, otherwise normal EGD 01/10/2021 EGD EUS 12/05/2019 mild gastritis, chronic pancreatitis with PD stone L'SCOPE CHOLECYSTECTOMY 06/14/2021 TUBAL LIGATION HX 1986 ALLERGIES Hydrocodone, Penicillins, and Valium [Diazepam] MEDICATIONS simvastatin (ZOCOR) 20 mg tablet TAKE 1 TABLET BY MOUTH AT BEDTIME hydrOXYzine pamoate (VISTARIL) 25 mg capsule TAKE 1 CAPSULE BY MOUTH AT BEDTIME Cholecalciferol, Vitamin D3, (D3-2000) 50 mcg (2,000 unit) cap Take 1 capsule by mouth once daily. vecbzm-fqizqydy-yapgajg (CREON 24) 24,000-76,000 -120,000 unit delayed release capsule Take 3 capsules by mouth twice daily with meals. pantoprazole DR (PROTONIX) 40 mg tablet TAKE 1 TABLET BY MOUTH DAILY SLOW RELEASE IRON 159 mg (45 mg iron) TbER TAKE 1 TABLET BY MOUTH TWICE A DAY WITH MEALS lisinopril (ZESTRIL, PRINIVIL) 10 mg tablet Take 1 tablet by mouth once daily. ibuprofen (MOTRIN) 400 mg tablet TAKE 1 TABLET BY MOUTH EVERY SIX HOURS NEEDED multivitamin tablet Take 1 tablet by mouth once daily. ferrous sulfate (SLOW FE) 140 mg (45 mg iron) TbER Take 1 tablet by mouth twice daily with meals. ARIPiprazole (ABILIFY) 5 mg tablet Take by mouth. loperamide (IMODIUM) 2 mg cap(s) Take 1 capsule by mouth four times daily as needed for diarrhea. busPIRone (BUSPAR) 10 mg tablet Take 1 tablet by mouth three times daily. ondansetron (ZOFRAN) 4 mg tablet Take 1 tablet by mouth every 8 hours as needed for Nausea/Vomiting. guaiFENesin (MUCINEX) 600 mg 12 hr tablet Take 2 tablets by mouth twice daily. albuterol HFA (VENTOLIN HFA) 90 mcg/actuation inhaler Inhale 2 Puffs as instructed four times dailyas needed. Ear Thermometer misc 1 Each once daily as needed. [DISCONTINUED] mirtazapine (REMERON) 15 mg tablet Take 1 tablet by mouth daily at bedtime. albuterol (PROVENTIL) 2.5 mg /3 mL (0.083 %) nebulizer solution Use 3 mL via nebulizer one time only for 1 dose. Use over 5-15minutes. OXYGEN, HOME THERAPY, Inhale as instructed as directed. Patient is on 2-3 liters COMPOUNDED PRESCRIPTION Pulse Oximetry COMPOUNDED PRESCRIPTION nebulizer supplies (tubing) FAMILY HISTORY Problem Relation Age of Onset Diabetes Mother Hypertension Mother Rheumatologic disease Mother other (lung cancer) Mother Lung Cancer Mother Diabetes Sister Cervical Cancer Sister X 2 Hypertension Brother Lung Cancer Brother Social History Tobacco Use Smoking status: Current Every Day Smoker Packs/day: 0.50 Years: 30.00 Pack years: 15.00 Types: Cigarettes Smokeless tobacco: Never Used Vaping Use Vaping Use: Never used Substance Use Topics Alcohol use: Not Currently Comment: Alcoholic - November 2020 - last drink Drug use: Yes Types: Marijuana Comment: rarely- last time used was Oct 2019 PHYSICAL EXAM BP 128/72 Pulse 92 Resp 16 Wt 58.5 kg (129 lb) LMP 06/08/2010 BMI 22.85 kg/m General Appearance: well appearing, in no acute distress, alert Pysch: mood and affect broad and appropriate Skin: Skin color, texture, turgor normal for age; Eyes: PERRLA, EOM's intact, conjunctiva pink and moist, no icterus, sclera white, non-injected Neck: Thyroid normal size and symmetric without palpable nodules, No adenopathy Lymph nodes: No cervical lymphadenopathy and No supraclavicular lymphadenopathy Lungs: Lungs clear to auscultation. No wheezing, rhonchi, rales. Heart: RRR without murmur, gallop, or rubs. No ectopy Abdomen: Abdomen soft, non-tender. Bowel sounds normal. No masses, Positive findings: ascites, organs difficult to palpate with fluid on abdomen Extremities: No deformities, edema, skin discoloration, clubbing or cyanosis. Good capillary refill. Musculoskeletal: No joint swelling, deformity, or tenderness Neurological: Gait normal Sensation grossly intact., Negative findings: speech normal, mental status intact, muscle tone normal, muscle strength normal HIV SCREENING Never done ALPHA-1 ANTITRYPSIN DEFICIENCY SCREENING Never done SHINGRIX VACCINE(1 of 2) Never done PAP TESTING due on 07/05/2020 MAMMOGRAM due on 08/28/2021 COVID-19 VACCINE(3 - Booster for Pfizer series) due on 12/27/2021 ANNUAL PCP TEAM CHRONIC DISEASE VISIT due on 03/26/2022 BP CONTROLLED (<130/80) due on 03/26/2022 INFLUENZA(1) due on 05/29/2022 COLORECTAL CANCER SCREENING due on 01/11/2024 DIABETES SCREEN due on 03/26/2024 HPV TESTING due on 07/05/2024 LIPID SCREEN due on 07/19/2026 PNEUMOCOCCAL(3 - PPSV23 or PCV20) due on 2028 SPIROMETRY Completed HEPATITIS C SCREENING Completed DTAP,TDAP,TD Discontinued ASSESSMENT/PLAN: 1. Essential hypertension, benign - ICD9: 401.1, ICD10: I10 (primary diagnosis) - good control - Continue current medication(s) - Encouraged dietary sodium restriction/DASH diet - Recommended regular aerobic exercise. - Recommend home blood pressure monitoring, to bring results in on next visit - Goal of BP <130/80 2. Hyperlipidemia, unspecified hyperlipidemia type - ICD9: 272.4, ICD10: E78.5 - to be determined upon return of lab results - Continue current medication. - Encouraged following a low fat, low cholesterol diet. - Discussed the benefits of regular aerobic exercise and weight loss. - SIMVASTATIN 20 MG TABLET - LIPID PANEL BASIC - COMP METABOLIC PANEL 3. Chronic fatigue - ICD9: 780.79, ICD10: R53.82 - multiple chronic conditions might be affecting this. - CBC + DIFF - TSH BLD - IRON + TIBC - FERRITIN BLD 4. Alcoholic hepatitis without ascites - ICD9: 571.1, ICD10: K70.10 - needs to continue to follow with GI, also had what felt like fluid on abdomen during exam - will further evaluate this - continue to refrain from alcohol and tylenol containing products - CONSULT TO GASTROENTEROLOGY - US ABD RT UPPER QUADRANT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 chronic pancreatitis (HCC) - ICD9: 577.1, ICD10: K86.0 As above - [id number] 24,000-76,000-120,000 UNIT CAPSULE,DELAYED REL - CONSULT TO GASTROENTEROLOGY - US ABD RT UPPER QUADRANT 5. Iron deficiency - ICD9: 280.9, ICD10: E61.1 - FERROUS SULFATE ER 140 MG (45 MG IRON) TABLET,EXTENDED RELEASE - CBC + DIFF - IRON + TIBC - FERRITIN BLD 7. Vitamin D deficiency - ICD9: 268.9, ICD10: E55.9 - VITAMIN D 25 HYDROXY 8. MICKEY (generalized anxiety disorder) - ICD9: 300.02, ICD10: F41.1 - patient feels this is controlled - continue to follow with Dr. Talamantes and medications as ordered by her. Did refill her PRN Hydroxyzine 9. Reactive depression - ICD9: 300.4, ICD10: F32.9 As above Prescription instructions reviewed with patient as applicable. Potential red flag symptoms discussed with the patient. Reviewed appropriate action plan to take if red flag symptoms occur. Patient agreeable to treatment plan. Soila Easton APRN.CNP documented in [facility] Miscellaneous Notes* Telephone Encounter - Maribeth Owen LPN - 03/24/2022 10:29 AM EDT Called pt and scheduled her for a yearly apt. Patient has been identified by name and date of : Yes Pharmacy phones for refill(s): Pending Prescriptions Disp Refills SIMVASTATIN 20 MG TABLET 30 tablet 0 Sig: TAKE 1 TABLET BY MOUTH AT BEDTIME THUY: Yes HYDROXYZINE PAMOATE 25 MG CAPSULE 30 capsule 0 Sig: TAKE 1 CAPSULE BY MOUTH AT BEDTIME THUY: Yes Date of last office visit in primary care: 03/26/21 Last 2 Encounter Wt Readings: Date: Wt: 07/18/2021 56.5 kg (124 lb 9.6 oz) 06/19/2021 58.1 kg (128 lb) Previous labs/tests for medication: Thank you. Maribeth Owen LPN documented in this encounterL[facility] Miscellaneous Notes* Telephone Encounter - Janene Grimm RN - 03/21/2022 4:49 PM EDT Patient has been identified by name and date of : Yes Pharmacy phones for refill(s): Pending Prescriptions Disp Refills CHOLECALCIFEROL (VITAMIN D3) 50 MCG (2,000 UNIT) CAPSULE 28 capsule 11 Sig: Take 1 capsule by mouth once daily. THUY: No [id number] 24,000-76,000-120,000 UNIT CAPSULE,DELAYED REL 180 capsule 11 Sig: Take 3 capsules by mouth twice daily with meals. THUY: No Date of last office visit with pcp: 03/26/2021 Future appt: none Left message for patient to call and schedule annual exam. Last 2 Encounter Wt Readings: Date: Wt: 07/18/2021 56.5 kg (124 lb 9.6 oz) 06/19/2021 58.1 kg (128 lb) Previous labs/tests for medication: Blood Pressure: BUN (mg/dL) Date Value 03/26/2021 7 Sodium (mmol/L) Date Value 03/26/2021 140 Last 1 Encounter BP Readings: Date: BP: 07/18/2021 138/76 Liver Function: ALT (U/L) Date Value 03/26/2021 9 AST (U/L) Date Value 03/26/2021 16 Please advise. Thank you. Janene Grimm RN documented in this encounterL[facility] Miscellaneous Notes* Telephone Encounter - Inge Holden APRN.CNP - 03/11/2022 3:35 PM EDT Order filed for Diflucan. nIge Holden APRN.CNP * Telephone Encounter - Tasneem Ocampo RN - 03/11/2022 3:26 PM EDT Patient has been taking antibiotic for upper respiratory infection/pnemonia for the last 7 days. Having vaginal itching. Denies discharge or odor. Requesting RX for Diflucan to be sent to [facility]. RX pending. Has not tried OTC Monistat. No need to call patient unless RX can't be sent. Tasneem Ocampo RN documented in this encounterL[facility] Miscellaneous Notes* Telephone Encounter - Eda Moore LPN - 02/21/2022 12:04 PM EDT Patient has been identified by name and date of : Yes Patient phones for refill(s): Pending Prescriptions Disp Refills HYDROXYZINE PAMOATE 25 MG CAPSULE 30 capsule Sig: TAKE 1 CAPSULE BY MOUTH AT BEDTIME THUY: Yes SIMVASTATIN 20 MG TABLET 30 tablet 5 Sig: TAKE 1 TABLET BY MOUTH AT BEDTIME THUY: Yes Date of last office visit in primary care: 03/26/2021 Last 2 Encounter Wt Readings: Date: Wt: 07/18/2021 56.5 kg (124 lb 9.6 oz) 06/19/2021 58.1 kg (128 lb) Previous labs/tests for medication: Cholesterol: HDL Cholesterol (mg/dL) Date Value 07/19/2021 52 LDL Cholesterol (mg/dL) Date Value 07/19/2021 93 ALT (U/L) Date Value 03/26/2021 9 Non HDL Cholesterol (mg/dL) Date Value 07/19/2021 120 Please advise. Thank you. Eda Moore LPN documented in this encounterL[facility] Miscellaneous Notes* Telephone Encounter - Zelda Cartagena Pss - 01/01/2022 12:50 PM EDT Called and scheduled patient for 01-10-22 with Soila Cartagena Pss * Telephone Encounter - Soila Easton APRN.DAYTIME CAREGIVER - 12/27/2021 12:54 PM EDT Patient needs routine follow up. Thank you Soila Easton APRN.DAYTIME CAREGIVER documented in this encounterL[facility]-15-[facility] History of Past illness Narrative* Problem Noted Date Resolved Date History of colonic polyps 01/10/20212020 Abdominal bloating 01/10/2021 01/10/2021 Alcohol dependence in remission 07/10/2015 11/02/2018 Pancreatitis chronic 05/26/2011 08/27/2017 Acute gastritis without mention of hemorrhage 01/03/2015 Gastroesophageal reflux disease 12/26/2009 01/10/2021 documented as of this encounter (statuses as of 01/01/2022) [facility] History of Past illness Narrative* Problem Noted Date Resolved Date History of colonic polyps 01/10/20212020 Abdominal bloating 01/10/2021 01/10/2021 Alcohol dependence in remission 07/10/2015 11/02/2018 Pancreatitis chronic 05/26/2011 08/27/2017 Acute gastritis without mention of hemorrhage 01/03/2015 Gastroesophageal reflux disease 12/26/2009 01/10/2021 documented as of this encounter (statuses as of 02/14/2022) [place] [address]-15-[address]21 History of Past illness Narrative* Problem Noted Date Resolved Date History of colonic polyps 01/10/20212020 Abdominal bloating 01/10/2021 01/10/2021 Alcohol dependence in remission 07/10/2015 11/02/2018 Pancreatitis chronic 05/26/2011 08/27/2017 Acute gastritis without mention of hemorrhage 01/03/2015 Gastroesophageal reflux disease 12/26/2009 01/10/2021 documented as of this encounter (statuses as of 02/21/2022) [facility] of Past illness Narrative* Problem Noted Date Resolved Date History of colonic polyps 01/10/20212020 Abdominal bloating 01/10/2021 01/10/2021 Alcohol dependence in remission 07/10/2015 11/02/2018 Pancreatitis chronic 05/26/2011 08/27/2017 Acute gastritis without mention of hemorrhage 01/03/2015 Gastroesophageal reflux disease 12/26/2009 01/10/2021 documented as of this encounter (statuses as of 03/11/2022) [facility] History of Past illness Narrative* Problem Noted Date Resolved Date History of colonic polyps 01/10/20212020 Abdominal bloating 01/10/2021 01/10/2021 Alcohol dependence in remission 07/10/2015 11/02/2018 Pancreatitis chronic 05/26/2011 08/27/2017 Acute gastritis without mention of hemorrhage 01/03/2015 Gastroesophageal reflux disease 12/26/2009 01/10/2021 documented as of this encounter (statuses as of 03/24/2022) [facility] of Past illness Narrative* Problem Noted Date Resolved Date History of colonic polyps 01/10/20212020 Abdominal bloating 01/10/2021 01/10/2021 Alcohol dependence in remission 07/10/2015 11/02/2018 Pancreatitis chronic 05/26/2011 08/27/2017 Acute gastritis without mention of hemorrhage 01/03/2015 Gastroesophageal reflux disease 12/26/2009 01/10/2021 documented as of this encounter (statuses as of 03/24/2022) [address]21 History of Past illness Narrative* Problem Noted Date Resolved Date History of colonic polyps 01/10/20212020 Abdominal bloating 01/10/2021 01/10/2021 Alcohol dependence in remission 07/10/2015 11/02/2018 Pancreatitis chronic 05/26/2011 08/27/2017 Acute gastritis without mention of hemorrhage 01/03/2015 Gastroesophageal reflux disease 12/26/2009 01/10/2021 documented as of this encounter (statuses as of 04/17/2022) [facility] of Past illness Narrative* Problem Noted Date Resolved Date History of colonic polyps 01/10/20212020 Abdominal bloating 01/10/2021 01/10/2021 Alcohol dependence in remission 07/10/2015 11/02/2018 Pancreatitis chronic 05/26/2011 08/27/2017 Acute gastritis without mention of hemorrhage 01/03/2015 Gastroesophageal reflux disease 12/26/2009 01/10/2021 documented as of this encounter (statuses as of 04/17/2022) [facility] of Past illness Narrative* Problem Noted Date Resolved Date History of colonic polyps 01/10/20212020 Abdominal bloating 01/10/2021 01/10/2021 Alcohol dependence in remission 07/10/2015 11/02/2018 Pancreatitis chronic 05/26/2011 08/27/2017 Acute gastritis without mention of hemorrhage 01/03/2015 Gastroesophageal reflux disease 12/26/2009 01/10/2021 documented as of this encounter (statuses as of 04/18/2022) [facility] of Past illness Narrative* Problem Noted Date Resolved Date History of colonic polyps 01/10/20212020 Abdominal bloating 01/10/2021 01/10/2021 Alcohol dependence in remission 07/10/2015 11/02/2018 Pancreatitis chronic 05/26/2011 08/27/2017 Acute gastritis without mention of hemorrhage 01/03/2015 Gastroesophageal reflux disease 12/26/2009 01/10/2021 documented as of this encounter (statuses as of 04/18/2022) [address]21 History of Past illness Narrative* Problem Noted Date Resolved Date History of colonic polyps 01/10/20212020 Abdominal bloating 01/10/2021 01/10/2021 Alcohol dependence in remission 07/10/2015 11/02/2018 Pancreatitis chronic 05/26/2011 08/27/2017 Acute gastritis without mention of hemorrhage 01/03/2015 Gastroesophageal reflux disease 12/26/2009 01/10/2021 documented as of this encounter (statuses as of 05/03/2022) [facility] of Past illness Narrative* Problem Noted Date Resolved Date History of colonic polyps 01/10/20212020 Abdominal bloating 01/10/2021 01/10/2021 Alcohol dependence in remission 07/10/2015 11/02/2018 Pancreatitis chronic 05/26/2011 08/27/2017 Acute gastritis without mention of hemorrhage 01/03/2015 Gastroesophageal reflux disease 12/26/2009 01/10/2021 documented as of this encounter (statuses as of 05/16/2022) [facility] of Past illness Narrative* Problem Noted Date Resolved Date History of colonic polyps 01/10/20212020 Abdominal bloating 01/10/2021 01/10/2021 Alcohol dependence in remission 07/10/2015 11/02/2018 Pancreatitis chronic 05/26/2011 08/27/2017 Acute gastritis without mention of hemorrhage 01/03/2015 Gastroesophageal reflux disease 12/26/2009 01/10/2021 documented as of this encounter (statuses as of 05/22/2022) [facility] of Past illness Narrative* Problem Noted Date Resolved Date History of colonic polyps 01/10/20212020 Abdominal bloating 01/10/2021 01/10/2021 Alcohol dependence in remission 07/10/2015 11/02/2018 Pancreatitis chronic 05/26/2011 08/27/2017 Acute gastritis without mention of hemorrhage 01/03/2015 Gastroesophageal reflux disease 12/26/2009 01/10/2021 documented as of this encounter (statuses as of 05/27/2022) [address]21 History of Past illness Narrative* Problem Noted Date Resolved Date History of colonic polyps 01/10/20212020 Abdominal bloating 01/10/2021 01/10/2021 Alcohol dependence in remission 07/10/2015 11/02/2018 Pancreatitis chronic 05/26/2011 08/27/2017 Acute gastritis without mention of hemorrhage 01/03/2015 Gastroesophageal reflux disease 12/26/2009 01/10/2021 documented as of this encounter (statuses as of 06/13/2022) [facility] of Past illness Narrative* Problem Noted Date Resolved Date History of colonic polyps 01/10/20212020 Abdominal bloating 01/10/2021 01/10/2021 Alcohol dependence in remission 07/10/2015 11/02/2018 Pancreatitis chronic 05/26/2011 08/27/2017 Acute gastritis without mention of hemorrhage 01/03/2015 Gastroesophageal reflux disease 12/26/2009 01/10/2021 documented as of this encounter (statuses as of 06/25/2022) [facility] of Past illness Narrative* Problem Noted Date Resolved Date History of colonic polyps 01/10/20212020 Abdominal bloating 01/10/2021 01/10/2021 Alcohol dependence in remission 07/10/2015 11/02/2018 Pancreatitis chronic 05/26/2011 08/27/2017 Acute gastritis without mention of hemorrhage 01/03/2015 Gastroesophageal reflux disease 12/26/2009 01/10/2021 documented as of this encounter (statuses as of 06/30/2022) [facility] History of Past illness Narrative* Problem Noted Date Resolved Date History of colonic polyps 01/10/20212020 Abdominal bloating 01/10/2021 01/10/2021 Alcohol dependence in remission 07/10/2015 11/02/2018 Pancreatitis chronic 05/26/2011 08/27/2017 Acute gastritis without mention of hemorrhage 01/03/2015 Gastroesophageal reflux disease 12/26/2009 01/10/2021 documented as of this encounter (statuses as of 07/18/2022) [address]21 History of Past illness Narrative* Problem Noted Date Resolved Date History of colonic polyps 01/10/20212020 Abdominal bloating 01/10/2021 01/10/2021 Alcohol dependence in remission 07/10/2015 11/02/2018 Pancreatitis chronic 05/26/2011 08/27/2017 Acute gastritis without mention of hemorrhage 01/03/2015 Gastroesophageal reflux disease 12/26/2009 01/10/2021 documented as of this encounter (statuses as of 08/27/2022) [facility] of Past illness Narrative* Problem Noted Date Resolved Date History of colonic polyps 01/10/20212020 Abdominal bloating 01/10/2021 01/10/2021 Alcohol dependence in remission 07/10/2015 11/02/2018 Pancreatitis chronic 05/26/2011 08/27/2017 Acute gastritis without mention of hemorrhage 01/03/2015 Gastroesophageal reflux disease 12/26/2009 01/10/2021 documented as of this encounter (statuses as of 11/12/2022) [facility] of Past illness Narrative* Problem Noted Date Resolved Date History of colonic polyps 01/10/20212020 Abdominal bloating 01/10/2021 01/10/2021 Alcohol dependence in remission 07/10/2015 11/02/2018 Pancreatitis chronic 05/26/2011 08/27/2017 Acute gastritis without mention of hemorrhage 01/03/2015 Gastroesophageal reflux disease 12/26/2009 01/10/2021 documented as of this encounter (statuses as of 11/12/2022) [facility] of Past illness Narrative* Problem Noted Date Resolved Date History of colonic polyps 01/10/20212020 Abdominal bloating 01/10/2021 01/10/2021 Alcohol dependence in remission 07/10/2015 11/02/2018 Pancreatitis chronic 05/26/2011 08/27/2017 Acute gastritis without mention of hemorrhage 01/03/2015 Gastroesophageal reflux disease 12/26/2009 01/10/2021 documented as of this encounter (statuses as of 11/25/2022) [address]21 History of Past illness Narrative* Problem Noted Date Resolved Date History of colonic polyps 01/10/20212020 Abdominal bloating 01/10/2021 01/10/2021 Alcohol dependence in remission 07/10/2015 11/02/2018 Pancreatitis chronic 05/26/2011 08/27/2017 Acute gastritis without mention of hemorrhage 01/03/2015 Gastroesophageal reflux disease 12/26/2009 01/10/2021 documented as of this encounter (statuses as of 11/26/2022) [facility] of Past illness Narrative* Problem Noted Date Resolved Date History of colonic polyps 01/10/20212020 Abdominal bloating 01/10/2021 01/10/2021 Alcohol dependence in remission 07/10/2015 11/02/2018 Pancreatitis chronic 05/26/2011 08/27/2017 Acute gastritis without mention of hemorrhage 01/03/2015 Gastroesophageal reflux disease 12/26/2009 01/10/2021 documented as of this encounter (statuses as of 11/27/2022) [facility] of Past illness Narrative* Problem Noted Date Resolved Date History of colonic polyps 01/10/20212020 Abdominal bloating 01/10/2021 01/10/2021 Alcohol dependence in remission 07/10/2015 11/02/2018 Pancreatitis chronic 05/26/2011 08/27/2017 Acute gastritis without mention of hemorrhage 01/03/2015 Gastroesophageal reflux disease 12/26/2009 01/10/2021 documented as of this encounter (statuses as of 11/27/2022) [facility] of Past illness Narrative* Problem Noted Date Resolved Date History of colonic polyps 01/10/20212020 Abdominal bloating 01/10/2021 01/10/2021 Alcohol dependence in remission 07/10/2015 11/02/2018 Pancreatitis chronic 05/26/2011 08/27/2017 Acute gastritis without mention of hemorrhage 01/03/2015 Gastroesophageal reflux disease 12/26/2009 01/10/2021 documented as of this encounter (statuses as of 11/27/2022) [address]21 History of Past illness Narrative* Problem Noted Date Resolved Date History of colonic polyps 01/10/20212020 Abdominal bloating 01/10/2021 01/10/2021 Alcohol dependence in remission 07/10/2015 11/02/2018 Pancreatitis chronic 05/26/2011 08/27/2017 Acute gastritis without mention of hemorrhage 01/03/2015 Gastroesophageal reflux disease 12/26/2009 01/10/2021 documented as of this encounter (statuses as of 11/28/2022) [facility] of Past illness Narrative* Problem Noted Date Resolved Date History of colonic polyps 01/10/20212020 Abdominal bloating 01/10/2021 01/10/2021 Severe protein-calorie malnutrition 01/07/2019 12/26/2022 Alcohol dependence in remission 07/10/2015 11/02/2018 Pancreatitis chronic 05/26/2011 08/27/2017 Acute gastritis without mention of hemorrhage 01/03/2015 Gastroesophageal reflux disease 12/26/2009 01/10/2021 documented as of this encounter (statuses as of 12/31/2022) [facility] of Past illness Narrative* Problem Noted Date Resolved Date History of colonic polyps 01/10/20212020 Abdominal bloating 01/10/2021 01/10/2021 Severe protein-calorie malnutrition 01/07/2019 12/26/2022 Alcohol dependence in remission 07/10/2015 11/02/2018 Pancreatitis chronic 05/26/2011 08/27/2017 Acute gastritis without mention of hemorrhage 01/03/2015 Gastroesophageal reflux disease 12/26/2009 01/10/2021 documented as of this encounter (statuses as of 03/13/2023) [facility] of Past illness Narrative* Problem Noted Date Resolved Date History of colonic polyps 01/10/20212020 Abdominal bloating 01/10/2021 01/10/2021 Severe protein-calorie malnutrition 01/07/2019 12/26/2022 Alcohol dependence in remission 07/10/2015 11/02/2018 Pancreatitis chronic 05/26/2011 08/27/2017 Acute gastritis without mention of hemorrhage 01/03/2015 Gastroesophageal reflux disease 12/26/2009 01/10/2021 documented as of this encounter (statuses as of 03/24/2023) [address] History of Past illness Narrative* Problem Noted Date Diagnosed Date Resolved Date History of colonic polyps 01/10/2021 Abdominal bloating 01/10/2021 Severe protein-calorie malnutrition 01/07/2019 12/26/2022 Alcohol dependence in remission 07/10/2015 11/02/2018 Pancreatitis chronic 05/26/2011 017 Acute gastritis without mention of hemorrhage 10/03/19 11 01/03/2015 Gastroesophageal reflux disease 12/26/2009 01/10/2021 documented as of this encounter (statuses as of 04/15/2023) [facility] of Past illness Narrative* Problem Noted Date Diagnosed Date Resolved Date History of colonic polyps 01/10/2021 Abdominal bloating 01/10/2021 Severe protein-calorie malnutrition 01/07/2019 12/26/2022 Alcohol dependence in remission 07/10/2015 11/02/2018 Pancreatitis chronic 05/26/2011 017 Acute gastritis without mention of hemorrhage 10/03/19 11 01/03/2015 Gastroesophageal reflux disease 12/26/2009 01/10/2021 documented as of this encounter (statuses as of 05/19/2023) [facility] of Past illness Narrative* Problem Noted Date Diagnosed Date Resolved Date History of colonic polyps 01/10/2021 Abdominal bloating 01/10/2021 Severe protein-calorie malnutrition 01/07/2019 12/26/2022 Alcohol dependence in remission 07/10/2015 11/02/2018 Pancreatitis chronic 05/26/2011 017 Acute gastritis without mention of hemorrhage 10/03/19 11 01/03/2015 Gastroesophageal reflux disease 12/26/2009 01/10/2021 documented as of this encounter (statuses as of 06/08/2023) [facility] of Past illness Narrative* Problem Noted Date Diagnosed Date Resolved Date History of colonic polyps 01/10/2021 Abdominal bloating 01/10/2021 Severe protein-calorie malnutrition 01/07/2019 12/26/2022 Alcohol dependence in remission 07/10/2015 11/02/2018 Pancreatitis chronic 05/26/2011 017 Acute gastritis without mention of hemorrhage 10/03/19 11 01/03/2015 Gastroesophageal reflux disease 12/26/2009 01/10/2021 documented as of this encounter (statuses as of 06/10/2023) [facility] of Past illness Narrative* Problem Noted Date Diagnosed Date Resolved Date History of colonic polyps 01/10/2021 Abdominal bloating 01/10/2021 Severe protein-calorie malnutrition 01/07/2019 12/26/2022 Alcohol dependence in remission 07/10/2015 11/02/2018 Pancreatitis chronic 05/26/2011 017 Acute gastritis without mention of hemorrhage 10/03/19 11 01/03/2015 Gastroesophageal reflux disease 12/26/2009 01/10/2021 documented as of this encounter (statuses as of 06/12/2023) [facility] of Past illness Narrative* Problem Noted Date Diagnosed Date Resolved Date History of colonic polyps 01/10/2021 Abdominal bloating 01/10/2021 Severe protein-calorie malnutrition 01/07/2019 12/26/2022 Alcohol dependence in remission 07/10/2015 11/02/2018 Pancreatitis chronic 05/26/2011 017 Acute gastritis without mention of hemorrhage 10/03/19 11 01/03/2015 Gastroesophageal reflux disease 12/26/2009 01/10/2021 documented as of this encounter (statuses as of 07/10/2023) [facility]04-15-2021 History of Past illness Narrative* Problem Noted Date Diagnosed Date Resolved Date History of colonic polyps 01/10/2021 Abdominal bloating 01/10/2021 Severe protein-calorie malnutrition 01/07/2019 12/26/2022 Alcohol dependence in remission 07/10/2015 11/02/2018 Pancreatitis chronic 05/26/2011 017 Acute gastritis without mention of hemorrhage 10/03/19 11 01/03/2015 Gastroesophageal reflux disease 12/26/2009 01/10/2021 documented as of this encounter (statuses as of 11/04/2023) [address]15-2021 History of Past illness Narrative* Problem Noted Date Diagnosed Date Resolved Date History of colonic polyps 01/10/2021 Abdominal bloating 01/10/2021 Severe protein-calorie malnutrition 01/07/2019 12/26/2022 Alcohol dependence in remission 07/10/2015 11/02/2018 Pancreatitis chronic 05/26/2011 017 Acute gastritis without mention of hemorrhage 10/03/19 11 01/03/2015 Gastroesophageal reflux disease 12/26/2009 01/10/2021 documented as of this encounter (statuses as of 12/17/2023) [facility]-15-2021 History of Past illness Narrative* Problem Noted Date Diagnosed Date Resolved Date History of colonic polyps 01/10/2021 Abdominal bloating 01/10/2021 Severe protein-calorie malnutrition 01/07/2019 12/26/2022 Alcohol dependence in remission 07/10/2015 11/02/2018 Pancreatitis chronic 05/26/2011 017 Acute gastritis without mention of hemorrhage 10/03/19 11 01/03/2015 Gastroesophageal reflux disease 12/26/2009 01/10/2021 documented as of this encounter (statuses as of 01/07/2024) [facility]-15-2021 History of Past illness Narrative* Problem Noted Date Diagnosed Date Resolved Date History of colonic polyps 01/10/2021 Abdominal bloating 01/10/2021 Severe protein-calorie malnutrition 01/07/2019 12/26/2022 Alcohol dependence in remission 07/10/2015 11/02/2018 Pancreatitis chronic 05/26/2011 017 Acute gastritis without mention of hemorrhage 10/03/19 11 01/03/2015 Gastroesophageal reflux disease 12/26/2009 01/10/2021 documented as of this encounter (statuses as of 01/07/2024) [facility]-2021 History of Past illness Narrative* Problem Noted Date Diagnosed Date Resolved Date History of colonic polyps 01/10/2021 Abdominal bloating 01/10/2021 Severe protein-calorie malnutrition 01/07/2019 12/26/2022 Alcohol dependence in remission 07/10/2015 11/02/2018 Pancreatitis chronic 05/26/2011 017 Acute gastritis without mention of hemorrhage 10/03/19 11 01/03/2015 Gastroesophageal reflux disease 12/26/2009 01/10/2021 documented as of this encounter (statuses as of 01/13/2024) [facility]2021 History of Past illness Narrative* Problem Noted Date Diagnosed Date Resolved Date History of colonic polyps 01/10/2021 Abdominal bloating 01/10/2021 Severe protein-calorie malnutrition 01/07/2019 12/26/2022 Alcohol dependence in remission 07/10/2015 11/02/2018 Pancreatitis chronic 05/26/2011 017 Acute gastritis without mention of hemorrhage 10/03/19 11 01/03/2015 Gastroesophageal reflux disease 12/26/2009 01/10/2021 documented as of this encounter (statuses as of 01/13/2024) [facility] Jeferson Breaux [facility] Note Date/Time December 12, 2024 6:2 5pm [facility] Medical Records Department [address] [place] [address] Anesthesia Postop Eval II 12/12/24 1751 MR#: [id number] Acct: [id number] Name: GRACIE BANUELOS Rep #:[id number] : 1965 59 From: Jeferson Breaux MD PCP: Dr. Annmarie Elkins MD Status:ADM I N Y Race: C Location: [place] [address] 3-1 Anesthesia Postop Eval I Sum Postop Eval Completion status Anesthesia document: Postop Eval 1 completed: Yes Anesthesia Postop Eval I Summary Anesthesia Postop Eval I Summary: Anesthesia Postop Eval I: Assessment Summary Airway patent Yes 12/12/24 13:08 ACID [email or web address] Spontaneous unlabored Yes 12/12/24 13:08 ACID [email or web address] respirations Mental status Awake,Calm 12/12/24 13:08 ACID [email or web address] nausea No 12/12/24 13:08 ACID [email or web address] Vomiting No 12/12/24 13:08 ACID [email or web address] Anesthesia Postop Eval I: Fluid Summary Crystalloid volume administer 30 12/12/24 13:08 ACID [email or web address] (ml) Colloids volume administered ( ml) Blood Product volume administered (ml) Total IV fluid infused 30 12/12/24 13:08 ACID [email or web address].PKJOSE FRANCISCO Anesthesia Postop Eval I: Summary Notes Anesthesia Complication No 12/12/24 13:08 ACID [email or web address].PKJOSE FRANCISCO Anesthesia Complication Comment: Post-operative progress note Anesthesia: Postop Eval II Evaluation Mental status: Awake and Calm Pain Level: 1 nausea: No Vomiting: No Complications Anesthesia Complication: No 12/12/24 5701 <Electronically signed by Jeferson carranza MD> Date _ Jeferson Breaux MD Cosigner Signature: Date CC: ~ Signed [facility] Work Phone: Discharge summary Author Dr. Bonilla [facility] November 07, 2022 12:09pm Note Date/Time November 07, 2022 12:09pm [facility] Medical Records Department [address] [place] [id number] Instructions for Home/Discharge Instructions 11/07/22 1208 MR#: [id number] Acct: [id number] Name: GRACIE BANUELOS Rep #:[id number] : 1965 57 From: Anastacia Bonilla MD PCP: KEN STAHLC Status:ADM IN Discharge Instructions Diet Discharge Diet: Low fat / Low cholesterol Activity Discharge Activity: Return to Normal Activity Weight Bearing Status: Weight bearing as tolerated Dressing / Incision Call your doctor if you observe: Fever of 101 or Higher, Shortness of breath, Dizziness, Swelling in the ankles, Chest pain and Increased palpitations (irregular heartbeat) Follow Up Care Test Results: Test results from this visit will be discussed in further detail at your follow- up appointment, if applicable. Discharge Plan Admission Admit Date/Time: 11/01/22 22:17 Primary Reason for Your Visit: CHUY, pneumonia, respiratory failure Attending Provider: Anastacia Bonilla Primary Care Provider: SOILA EASTNO Consulting Providers: Ciarra Ross ; Lisa Ochoa ; Freddie Perdue ; Gonzalo Sebastian ; Olivier Coffman ; Dieter Harrison ; Ani Eduardo NP ; Courtney Iverson Instructions Patient Instructions: Acute Kidney Failure Dc Discharge Orders/Prescriptions Prescriptions: New prednisone 20 mg Tablet 40 mg PO BREAKFAST Qty: 8 0RF Continued albuterol sulfate [Ventolin HFA] 90 mcg/actuation HFA aerosol inhaler 2 puff INHALATION Q4H PRN (Reason: shortness of breath or wheezing) Qty: 18 6RF mirtazapine 45 mg tablet 45 mg PO QHS cholecalciferol (vitamin D3) 2,000 UNIT capsule 50 mcg PO DAILY pantoprazole 40 MG tablet 40 mg PO DAILY aripiprazole [Abilify] 5 mg Tablet 5 mg PO DAILY hydroxyzine pamoate 25 mg Capsule 25 mg PO Q6H PRN PRN (Reason: Itching) Creon 24,000-76,000 -120,000 unit capsule,delayed release(DR/EC) 1 cap PO TIDCM loperamide 2 mg capsule 2 mg PO Q4H PRN PRN (Reason: Diarrhea) polyvinyl alcohol 1.4 % drops 2 drp ophthalmic (eye) Q6H amlodipine 2.5 mg tablet 2.5 mg PO DAILY simvastatin 20 mg tablet 20 mg PO QHS erythromycin 5 mg/gram (0.5 %) ointment 0.5 inch RIGHT EYE Q6H Discontinued sulfamethoxazole-trimethoprim 800-160 mg tablet 1 tab PO BID Referrals / Follow Up: SOILA EASTON NP-Nichole [Primary Care Provider] - Within 2 Weeks Disposition Disposition (needs filled in before D/C Order can be placed): Home, Self Care 11/07/22 1209<Electronically signed by Anastacia Bonilla MD>Anastacia Bonilla MD CC: WARNING COORDINATION METEOROLOGIST-C Ani Eduardo; WARNING COORDINATION METEOROLOGISTMiriam EASTON; Dr. Ciarra Ross MD; Dr. Freddie Perdue MD; Dr. Gonzalo Sebastian DO; Dr. Courtney Iverson MD; Dr. Olivier Coffman MD; Dr. Lisa Ochoa MD; Dr. Dieter Harrison MD ~ Signed [facility] Work Phone: Discharge summary Author Dr. Bonilla [facility] November 07, 2022 1:26pm Note Date/Time November 07, 2022 12:20pm [facility] Medical Records Department [address] [place] [address] Discharge Summary 11/07/22 1209 MR#: [id number] Acct: [id number] Name: GRACIE BANUELOS Rep #:[id number] : 1965 57 From: Anastacia Bonilla MD PCP: CARMEN STAHL Status:ADM IN Location: [id number] Providers Date of Admission: 11/01/22 Date of Discharge: 11/07/22 Primary Care Physician: CARMEN STAHL Consultations 11/02/22 20:18 Consult: Salon Leader / Pulmonary Medicine Routine Consulting Provider: Pulmonary Medicine [facility] Reason for Consult: respiratory failure. COPD EMERGENT Consult: No Notified: Yes Date Notified: 11/02/22 Time Notified: 20:18 Method of Notification: Text 11/04/22 10:49 Consult: Nephrology Routine Consulting Provider: Courtney Iverson Reason for Consult: CHUY EMERGENT Consult: No Notified: Yes Date Notified: 11/04/22 Time Notified: 10:49 Method of Notification: Verbal Reason For Visit: CHUY Diagnosis Discharge Diagnosis (1) Acute kidney injury: Status: Acute Code(s): N17.9 - Acute kidney failure, unspecified Plan #Acute on chronic hypoxic respiratory failure * resolving. Now down to 2L of oxygen. * duplex of lower extremities was negative for PE. Heparin drip was therefore discontinued * she remains on IV vancomycin and zosyn. * blood cultures are negative. Respiratory panel negative * #Acute renal injury due to volume depletion due to acute diarrhea * Cr down to 1.24 today. * resolving * nephrology on board. Will monitor * #Acute diarrhea * C diff ruled out * on immodium. * stool studies were negative. * diarrhea resolved * #Community acquired pneumonia * now down to 2L of oxygen. * CXR showed evidence of pneumonia * CT of the chest done yesterday showed small left pleural effusion or left basilar infiltration and/or atelectasis with minimal right pleural effusion. * critical care on board. * on IV vancomycin and zosyn. will dc antibiotics today since all cultures are negative * #sepsis * WBC is now down to 22 today from 27. * CT of the chest as above. CT of the abdomen and pelvis showed no evidence of infection. * Repeat blood cultures negative * On IV vancomycin and Zosyn. will dc today * #Hyperkalemia:resolved. #COPD: * breathing treatment with bronchodilators. * Titrate oxygen to maintain sats > 90% * #Non anion gap metabolic acidosis due to diarrhea * resolved. bicarb is 29. * nephrology on board. * * #Recent right orbital cellulitis * completed a course of bactrim * #Bipolar disorder and depression: on aripiprazole and buspar as well as remeron. #Chronic pancreatitis: on Creon. #Hypertension:on amlodipine DVT prophylaxis: heparin Medications at Discharge Home Medications cholecalciferol (vitamin D3) 50 mcg (2,000 unit) capsule 50 mcg PO DAILY SUPPLEMENT 12/29/18 pantoprazole 40 mg tablet,delayed release 40 mg PO DAILY GERD 08/12/20 albuterol sulfate 90 mcg/actuation aerosol inhaler (Ventolin HFA) 2 puff inhalation Q4H PRN shortness of breath or wheezing #18 grams 11/14/20 aripiprazole 5 mg tablet (Abilify) 5 mg PO DAILY mood 01/22/21 hydroxyzine pamoate 25 mg capsule 25 mg PO Q6H PRN PRN Itching 06/12/21 mirtazapine 45 mg tablet 45 mg PO QHS sleep 01/16/22 amlodipine 2.5 mg tablet 2.5 mg PO DAILY BP 11/01/22 erythromycin 5 mg/gram (0.5 %) eye ointment 0.5 inch RIGHT EYE Q6H antibiotic 11/01/22 [id number] 24,000-76,000-120,000 unit capsule,delayed rel (Creon) 1cap PO TIDCM Check with primary doctor 11/01/22 loperamide 2 mg capsule 2 mg PO Q4H PRN PRN Diarrhea 11/01/22 polyvinyl alcohol 1.4 % eye drops 2 drp ophthalmic (eye) Q6H eye infection 11/01/22 simvastatin 20 mg tablet 20 mg PO QHS cholesterol 11/01/22 prednisone 20 mg tablet 40 mg PO BREAKFAST #8 tabs 11/07/22 Hospital Course Operations None Procedures 2-D Echocardiogram Summary of Care Provided Minutes Spent on Discharge: 60 Hospital Course: Patient is a 57-year-old female with an extensive past medical history as outlined was admitted through the ED with a complaint of decreased urine output and bilateral flank pain. Of note, patient had recently been discharged from [facility] after she was transferred there from [facility] for acute ophthalmology evaluation due to right orbital cellulitis. That hospital stay has been complicated by severe diarrhea with CHUY. She was placed on Augmentin which was subsequently switched to Bactrim and he was discharged home on 10/29/2022. Patient said since she had gone home she had been drinking lots of fluids but her urine output had been decreasing. She also had bilateral flank pain and also admitted still having diarrhea. On admission labswere significant for sodium of 30 with creatinine of 2.05 with baseline creatinine noted to be 0.62. She was initially admitted and managed for CHUY likely prerenal due to dehydration from acute diarrhea. C. difficile had been ruled out with the acute diarrhea. She also had a non-anion gap metabolic acidosis which was due to the diarrhea as well as hyponatremia. Hospital coursewas complicated by patient having severe respiratory distress becoming tachypneic and having increased work of breathing which she ascribes to a severeanxiety attack. She was started on BiPAP and transferred to the ICU and startedon Zosyn due to concerns about pneumonia as chest x-ray showed left lower lobe infiltrate. She was also placed on Ativan for anxiety. Critical care was consulted. Patient again did have such severe shortness of breath and due to concerns about possible PE she was started on heparin drip. However duplex of the lower extremities ruled out DVT and she was weaned down to her baseline oxygen levels. She could not have a CT of the chest initially because of impaired kidney function. Her kidney function improved and her respiratory status also improved and heparin drip was stopped due to low suspicion for PE. Antibiotics were also discontinued after she completed a 5-day course. She was transferred out of the ICU to the regular nursing floor. Nephrology was also consulted on account of CHUY. CHUY subsequently resolved and creatinine trended down to normal. She was discharged home on 11/07/2022 and is to follow-up with her primary care doctor within 1 to 2 weeks. Patient seen and examined prior to discharge. She had no active complaints and had an uneventful night. Review of systems otherwise negative. Labs and vitalsreviewed. Medication reviewed and reconciled. Physical Exam Const alert, oriented x3 and no apparent distress General Appearance: cooperative Orientation / Consciousness: awake Exam Limitations: no limitations HEENT normocephalic, head/scalp atraumatic, hearing grossly normal bilaterally, moist oral mucous membranes and oropharynx normal Mouth: oral and palatal mucosa normal Eyes PERRL, EOMs intact bilaterally and conjunctivae normal Neck no lymphadenopathy and supple Resp Resp Narrative: diminished breath sounds bibasally, no wheezes or crackles. on room air Cardio regular rate, regular rhythm, S1 normal heart sound and S2 normal heart sound GI normal to inspection, nondistended, normoactive bowel sounds, soft to palpation,non-tender and non-distended Extremity normal to inspection, full ROM and no clubbing, cyanosis or edema Skin no rashes or lesions noted Neuro oriented x3, CN's II-XII intact bilaterally and moves all extremities Sensorium / Orientation: awake and alert Motor Exam: strength 5/5 throughout Psych affect normal Weight / BMI Weight Weight: 137 lb 2.04 oz Body Mass Index (BMI) 23.7 ABG / Lab / Microbiology Data Result Diagrams: 11/07/22 05:40 11/07/22 05:40 Laboratory: Laboratory Results - last 24 hr 11/06/22 03:27: Diff Path Review Reviewed 11/07/22 05:40: WBC 13.6 H, RBC 3.28 L, Hgb 8.8 L, Hct 27.4 L, MCV 83.5, MCH 26.8 L, MCHC 32.1, RDW Std Deviation 45.4 H, RDW Coeff of Min 14.8 H, Plt Count 395, MPV 9.9, Immature Gran % (Auto) 2.600 H, Neut % (Auto) 59.2, Lymph % (Auto)19.9, [place] % (Auto) 13.8 H, Eos % (Auto) 4.1, Baso % (Auto) 0.4, Absolute Neuts (auto) 8.0 H, Absolute Lymphs (auto) 2.70, Nucleated RBC % 0, Differential Comment SCANNED, Diff Path Review January foll 11/07/22 05:40: Sodium 141, Potassium 3.0 L, Chloride 99, Carbon Dioxide 36.0 H,Anion Gap 6, BUN 15, Creatinine 0.96, Estim Creat Clear Calc 52.20, Est GFR (MDRD) Af Amer 76, Est GFR (MDRD) Non-Af 63, BUN/Creatinine Ratio 15.6, Glucose 90, Calcium 8.4 L Microbiology: Microbiology 11/04/22 12:31 Blood Culture (Wb) - Right Hand Blood Culture - Preliminary 11/04/22 12:08 Blood Culture (Wb) - Left Hand Blood Culture - Preliminary 11/03/22 07:40 Mucosa - Nasopharyngeal Respiratory Panel (PCR) - Final 11/02/22 09:15 Stool Stool Lactoferrin - Final 11/02/22 09:15 Stool Stool Occult Blood (AGNIESZKA) - Final D/C Instructions Discharge Diet: Low fat / Low cholesterol Weight Bearing Status: Weight bearing as tolerated Call your doctor if you observe: Fever of 101 or Higher, Shortness of breath, Dizziness, Swelling in the ankles, Chest pain and Increased palpitations (irregular heartbeat) Meaningful Use Info Meaningful Use Diagnoses (Choose all that apply): None applicable Discharge Plan Admission Admit Date/Time: 11/01/22 22:17 Primary Reason for Your Visit: CHUY, pneumonia, respiratory failure Attending Provider: Anastacia Bonilla Primary Care Provider: SOILA EASTON Consulting Providers: Ciarra Ross ; Lisa Ochoa ; Freddie Perdue ; Gonzalo Sebastian ; Olivier Coffman ; Dieter Harrison ; Ani Eduardo WARNING COORDINATION METEOROLOGIST ; Courtney Iverson Instructions Patient Instructions: Acute Kidney Failure Dc Discharge Orders/Prescriptions Prescriptions: New prednisone 20 mg Tablet 40 mg PO BREAKFAST Qty: 8 0RF Continued albuterol sulfate [Ventolin HFA] 90 mcg/actuation HFA aerosol inhaler 2 puff INHALATION Q4H PRN (Reason: shortness of breath or wheezing) Qty: 18 6RF mirtazapine 45 mg tablet 45 mg PO QHS cholecalciferol (vitamin D3) 2,000 UNIT capsule 50 mcg PO DAILY pantoprazole 40 MG tablet 40 mg PO DAILY aripiprazole [Abilify] 5 mg Tablet 5 mg PO DAILY hydroxyzine pamoate 25 mg Capsule 25 mg PO Q6H PRN PRN (Reason: Itching) Creon 24,000-76,000 -120,000 unit capsule,delayed release(DR/EC) 1 cap PO TIDCM loperamide 2 mg capsule 2 mg PO Q4H PRN PRN (Reason: Diarrhea) polyvinyl alcohol 1.4 % drops 2 drp ophthalmic (eye) Q6H amlodipine 2.5 mg tablet 2.5 mg PO DAILY simvastatin 20 mg tablet 20 mg PO QHS erythromycin 5 mg/gram (0.5 %) ointment 0.5 inch RIGHT EYE Q6H Discontinued sulfamethoxazole-trimethoprim 800-160 mg tablet 1 tab PO BID Referrals / Follow Up: Annmarie Elkins MD [Med Staff - [employer]] - 11/11/22 4:00 pm Disposition Disposition (needs filled in before D/C Order can be placed): Home, Self Care Charges/Coding Visit Charges Inpatient E&M: 93356 Disch Hosp >30min 11/07/22 1326 <Electronically signed by Anastacia Bonilla MD> Cosigner Signature (if applicable): CC: WARNING COORDINATION METEOROLOGISTMiriam EASTON; Dr. Anastacia Bonilla MD~ Signed [facility] Work Phone: Evaluation note* Diagnosis Essential hypertension, benign documented in this encounter [facility] note* Diagnosis MICKEY (generalized anxiety disorder) Generalized anxiety disorder Hyperlipidemia, unspecified hyperlipidemia type documented in this encounter [facility] note* Diagnosis Onset Date Resolution Status Chronic respiratory failure with hypoxia chronic Smoking greater than 30 pack years chronic Stage 3 severe COPD by GOLD classification chronic [facility] Work Phone: Evaluation note* Diagnosis Vitamin D deficiency Unspecified vitamin D deficiency 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 chronic pancreatitis (HCC) Chronic pancreatitis [facility] Diagnosis Hyperlipidemia, unspecified hyperlipidemia type MICKEY (generalized anxiety disorder) Generalized anxiety disorder documented in this encounter [facility] note* Diagnosis Essential hypertension, benign- Primary Hyperlipidemia, unspecified hyperlipidemia type Chronic fatigue Other malaise and fatigue Alcoholic hepatitis without ascites Acute alcoholic hepatitis 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 chronic pancreatitis (HCC) Chronic pancreatitis Iron deficiency Iron deficiency anemia, unspecified Vitamin D deficiency Unspecified vitamin D deficiency MICKEY (generalized anxiety disorder) Generalized anxiety disorder Reactive depression Dysthymic disorder [facility] Diagnosis Vitamin D deficiency Unspecified vitamin D deficiency [facility] Diagnosis 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 chronic pancreatitis (HCC) Chronic pancreatitis Alcoholic hepatitis without ascites Acute alcoholic hepatitis [facility]* Diagnosis 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 chronic pancreatitis (HCC) Chronic pancreatitis Alcoholic hepatitis without ascites Acute alcoholic hepatitis documented in this encounter [facility] noteNo assessment information [facility] Work Phone: Evaluation note* Diagnosis Encounter for screening mammogram for breast cancer documented in this encounter [facility] note* Diagnosis Essential hypertension, benign- Primary Multiple joint pain Pain in joint, multiple sites 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 chronic pancreatitis (HCC) Chronic pancreatitis Chronic obstructive pulmonary disease, unspecified COPD type (HCC) Right otitis media, unspecified otitis media type Need for influenza vaccination Need for prophylactic vaccination and inoculation against influenza documented in this encounter [facility] note* Diagnosis Chronic obstructive pulmonary disease, unspecified COPD type (HCC)- Primary documented in this encounter [facility] note* Diagnosis Onset Date Resolution Status Chronic respiratory failure with hypoxia chronic Stage 3 severe COPD by GOLD classification [facility] Work Phone: Evaluation note* Diagnosis Inflammation of orbital region- Primary Unspecified chronic inflammation of orbit [facility] Diagnosis Orbital inflammation- Primary Unspecified chronic inflammation of orbit [facility]* Diagnosis Inflammation of orbital region- Primary Unspecified chronic inflammation of orbit [facility]* Neurological: alert and oriented x3, intact senses, motor, response and normal strengthGastrointestinal: Nondistended, soft, non- tender, no rebound tenderness or guarding, no organomegaly,Cardiovascular: Regular, rate and rhythm, no murmursRespiratory/Thorax: Patent airways, CTAB, normal breath sounds with good chest expansion,Eyes: Right eye with mildly erythematous. Pain with movement is reduced. crosses midline.Skin: Diffuse rash on her back, neck, and extremities [facility]* Diagnosis Inflammation of orbital region- Primary Unspecified chronic inflammation of orbit [facility] Diagnosis Onset Date Resolution Status Chronic respiratory failure with hypoxia chronic Stage 3 severe COPD by GOLD classification chronic Acute hyponatremia acute Acute kidney injury acute Diarrhea acute Nausea & vomiting acute Stage 3 severe COPD by GOLD classification [facility] Work Phone: Evaluation note* Diagnosis CHUY (acute kidney injury) (HCC)- Primary Acute kidney failure, unspecified Chronic obstructive pulmonary disease, unspecified COPD type (HCC) Alcohol use disorder, moderate, dependence (HCC) Essential hypertension, benign Hyperlipidemia, unspecified hyperlipidemia type Tobacco use disorder Reactive depression Dysthymic disorder Moderate episode of recurrent major depressive disorder (HCC) 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 chronic pancreatitis (HCC) Chronic pancreatitis [facility]* Diagnosis Numbness and tingling of both lower extremities- Primary CHUY (acute kidney injury) (HCC) Acute kidney failure, unspecified Essential hypertension, benign Hyperlipidemia, unspecified hyperlipidemia type [facility] Diagnosis Neuropathy- Primary Mononeuritis of unspecified site Numbness and tingling of both lower extremities Numbness and tingling of both feet Claustrophobia Other isolated or specific phobias [facility] Diagnosis CHUY (acute kidney injury) (HCC)- Primary Acute kidney failure, unspecified [facility] Diagnosis Cellulitis of right orbital region- Primary Orbital cellulitis CHUY (acute kidney injury) (HCC) Acute kidney failure, unspecified Uncontrolled hypertension Unspecified essential hypertension Tobacco abuse, in remission Personal history of tobacco use, presenting hazards to health Lung mass Swelling, mass, or lump in chest [facility] Diagnosis Prediabetes- Primary Other abnormal glucose [facility]* Diagnosis Thrush Candidiasis of mouth [facility]* Diagnosis Hyperlipidemia Other and unspecified [facility] Hyperlipidemia, unspecified hyperlipidemia type [facility]* Diagnosis Arthralgia of right temporomandibular joint- Primary Arthralgia of temporomandibular joint Insomnia, unspecified type Nausea Nausea alone Alcohol use disorder, moderate, dependence (HCC) [facility]* Diagnosis Encounter for screening mammogram for breast cancer [facility]* Diagnosis Vitamin D deficiency Unspecified vitamin D deficiency [facility]* Diagnosis Onset Date Resolution Status Asthma chronic Chronic respiratory failure with hypoxia chronic COPD (chronic obstructive pulmonary disease) chronic Smoking greater than 30 pack years [facility] Work Phone: Evaluation note* Diagnosis Tachycardia- Primary Tachycardia, unspecified 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 chronic pancreatitis (HCC) Chronic pancreatitis Hyperlipidemia, unspecified hyperlipidemia type Insomnia, unspecified type Vitamin D deficiency Unspecified vitamin D deficiency Chronic obstructive pulmonary disease, unspecified COPD type (HCC) Prediabetes Other abnormal glucose [facility]* Diagnosis Onset Date Resolution Status Pleurisy acute Pneumonia acute Acute on chronic hypoxic respiratory failure chronic COPD (chronic obstructive pulmonary disease) [facility] Work Phone: Evaluation note* Diagnosis Essential hypertension, benign- Primary Hyponatremia Hyposmolality and/or hyponatremia Leukocytosis, unspecified type COPD with exacerbation (HCC) Obstructive chronic bronchitis with exacerbation Pneumonia due to infectious organism, unspecified laterality, unspecified part of lung [facility]* Diagnosis Onset Date Resolution Status Pleurisy acute COPD (chronic obstructive pulmonary disease) [facility] Work Phone: Evaluation note* Diagnosis Chronic obstructive pulmonary disease, unspecified COPD type (HCC) [facility]* Diagnosis Nausea Nausea alone documented in this encounter [facility] note* Diagnosis Pneumonia due to infectious organism, unspecified laterality, unspecified part of lung- Primary Acute right ankle pain documented in this encounter [facility] note* Diagnosis Hyperlipidemia, unspecified hyperlipidemia type Vitamin D deficiency Unspecified vitamin D deficiency Chronic obstructive pulmonary disease, unspecified COPD type (HCC) documented [facility]* Diagnosis Chronic obstructive pulmonary disease, unspecified COPD type (HCC) documented [facility]* Diagnosis Chronic obstructive pulmonary disease, unspecified COPD type (HCC) documented [facility]* Diagnosis Chronic obstructive pulmonary disease, unspecified COPD type (HCC) documented [facility]* Diagnosis Encounter for screening mammogram for breast cancer documented in this encounter [facility] note* Diagnosis Anxiety- Primary Anxiety state, unspecified 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 chronic pancreatitis (HCC) Chronic pancreatitis Chronic obstructive pulmonary disease, unspecified COPD type (HCC) Essential hypertension Unspecified essential hypertension [facility]* Diagnosis Pneumonia due to infectious organism, unspecified laterality, unspecified part of lung Acute right ankle pain [facility]* Diagnosis Chronic obstructive pulmonary disease, unspecified COPD type (HCC) [facility]* Diagnosis Numbness and tingling of both lower extremities [facility]* Diagnosis Chronic obstructive pulmonary disease, unspecified COPD type (HCC) documented [facility]* Diagnosis Chronic obstructive pulmonary disease, unspecified COPD type (HCC) [facility]* Diagnosis Anxiety- Primary Anxiety state, unspecified 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 chronic pancreatitis (HCC) Chronic pancreatitis Nausea Nausea alone Encounter for immunization Need for other specified prophylactic vaccination against single bacterial disease Insomnia, unspecified type Leukocytosis, unspecified type [facility]* Diagnosis Shortness of breath- Primary Chronic obstructive pulmonary disease with acute exacerbation (HCC) Obstructive chronic bronchitis with exacerbation Upper abdominal pain Abdominal pain, other specified site Nausea Nausea alone Urinary incontinence, unspecified type Urinary frequency Elevated glucose Other abnormal glucose Tobacco use disorder Pulmonary emphysema, unspecified emphysema type (HCC) [facility]* Diagnosis Shortness of breath Chronic obstructive pulmonary disease with acute exacerbation (HCC) Obstructive chronic bronchitis with exacerbation Tobacco use disorder Pulmonary emphysema, unspecified emphysema type (HCC) documented [facility]* Diagnosis Chronic obstructive pulmonary disease, unspecified COPD type (HCC)- Primary Generalized abdominal tenderness without rebound tenderness Upper abdominal pain Abdominal pain, other specified site Elevated lipase Other nonspecific abnormal serum enzyme levels Nausea Nausea alone Alcoholic hepatitis without ascites Acute alcoholic hepatitis Alcohol use disorder, moderate, dependence (HCC) Acute pancreatitis, unspecified complication status, unspecified pancreatitis type [facility]* Diagnosis Chronic obstructive pulmonary disease, unspecified COPD type (HCC) [facility]* Diagnosis Alcoholic hepatitis without ascites Acute alcoholic hepatitis Acute pancreatitis, unspecified complication status, unspecified pancreatitis type Upper abdominal pain Abdominal pain, other specified site Nausea Nausea alone Elevated lipase Other nonspecific abnormal serum enzyme levels Generalized abdominal tenderness without rebound tenderness [facility]* Diagnosis Vitamin D deficiency Unspecified vitamin D deficiency [facility]* Diagnosis 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 chronic pancreatitis (HCC)- Primary Chronic pancreatitis Chronic recurrent pancreatitis (HCC) Chronic pancreatitis Chronic RUQ pain Abdominal pain, right upper quadrant Abdominal bloating Flatulence, eructation, and gas pain Nausea Nausea alone Gastroesophageal reflux disease without esophagitis Esophageal reflux documented [facility]* Diagnosis Cough with sputum- Primary Cough Essential hypertension Unspecified essential hypertension COPD with exacerbation (HCC) Obstructive chronic bronchitis with exacerbation COPD with exacerbation (HCC) Obstructive chronic bronchitis with exacerbation [facility]* Diagnosis COPD with exacerbation (HCC) Obstructive chronic bronchitis with exacerbation [facility]* Diagnosis Other chronic pancreatitis (HCC)- Primary documented [facility]* Diagnosis Chronic recurrent pancreatitis (HCC) Chronic pancreatitis 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 chronic pancreatitis (HCC) Chronic pancreatitis Chronic RUQ pain Abdominal pain, right upper quadrant documented [facility]* Diagnosis Hyperlipidemia Other and unspecified hyperlipidemia documented in this encounter [facility] note* Diagnosis Hospital discharge follow-up- Primary Other follow-up examination Chronic recurrent pancreatitis (HCC) Chronic pancreatitis Chronic obstructive pulmonary disease, unspecified COPD type (HCC) Dysphagia, unspecified type Essential hypertension, benign Tobacco use disorder Smoker Tobacco use disorder [facility]* Diagnosis Chronic recurrent pancreatitis (HCC) Chronic pancreatitis Chronic obstructive pulmonary disease, unspecified COPD type (HCC) Hospital discharge follow-up Other follow-up examination documented in this encounter [facility] note* Diagnosis Onset Date Resolution Status Admit Date Acute hypoxic respiratory failure acute December 04, 2024 6:03pm Chronic pancreatitis chronic Lino h 2024 6:03pm COPD with acute exacerbation chronic December 04, 2024 6:03pm [facility] Work Phone: Evaluation note* Diagnosis Chronic obstructive pulmonary disease with acute exacerbation (HCC) Obstructive chronic bronchitis with exacerbation [facility]* Diagnosis Gout, unspecified cause, unspecified chronicity, unspecified site- Primary Calculus of pancreatic duct (HCC) Other specified disease of pancreas Chronic recurrent pancreatitis (HCC) Chronic pancreatitis Chronic obstructive pulmonary disease, unspecified COPD type (HCC) Pulmonary emphysema, unspecified emphysema type (HCC) Tobacco use disorder [facility] Diagnosis Nausea Nausea alone [facility]* Diagnosis Hyperlipidemia, unspecified hyperlipidemia type [facility]* Diagnosis Other chronic pancreatitis (HCC) documented [facility] Author Carin Meraz [facility] January 02, 2024 10:42pm Note Date/Time January 02, 2024 10:1 0pm [facility] Medical Records Department [address] [place] [address] H&P Exam - Hospitalist 01/02/24 2208 MR#: [id number] Acct: [id number] Name: GRACIE BANUELOS Rep #:[id number] : 1965 58 From: Carin Meraz MD PCP: Anat Easton, WARNING COORDINATION METEOROLOGIST-C Status:ADM IN [place] [facility] [place] HPI - General General Date of Admission: 01/02/24 Date of Service: 01/02/24 Chief Complaint: URI sxs, cough, dyspnea, worsening. HPI Narrative The patient is a 58 y/o F w/ PMHx: EtOH abuse, Tobacco use, COPD/Asthma w/ Chronic Hypoxic Respiratory Failure (PRN), HTN, HLD, Chronic anemia, Anxiety andDepression, Chronic pancreatitis associated with EtOH abuse who presents to the [facility] ED on 01/02/24 with history of onset of viral upper respiratory type symptoms starting 2 to 3 weeks prior to current presentation with now worsening cough which is moist and productive with subjective fevers and diaphoresis in additionto loose stools with worsening dyspnea placing her self back on supplemental oxygen with generalized pleuritic chest discomfort worse with coughing with movement in addition to nausea and an bout of emesis on day of presentation prompting eventual ED evaluation. Patient follows with pulmonary medicine Dr. Perdue. Workup in the ED included T98.1, heart rate 120, BP 126/93, respiratory rate 24, 90% on room air, CBC with WBC 25.7, hemoglobin 12.9, platelet 311 with left shift, unremarkable coags, BMP with sodium 133, glucose 126 otherwise unremarkable, troponin 13, chest x-ray with no acute cardiopulmonary findings, blood culture x 2 pending per ED, rapid SARS COVID/influenza/RSV PCR negative, ABG with pH 7.42, bicarb 20.7, pCO2 32.2, pO2 62, CTPA with no demonstrated PE or arterial dissection, right middle and upper lobe infiltrates consistent with pneumonia, Lactic acid 1.2, EKG with sinus tachycardia with no acute evidence ofischemia. In the ED patient ministered 1 L normal saline, DuoNeb therapy, Toradol 30 mg IV x 1, Solu-Medrol 60 mg IV x 1, azithromycin 500 mg IV x 1, Rocephin 1 g IV x 1. PFSH Medical History Anemia Anxiety and depression Arthritis Asthma Benign hypertension Chronic pancreatitis COPD (chronic obstructive pulmonary disease) GERD (gastroesophageal reflux disease) History of alcohol abuse History of back problems HLD (hyperlipidemia) HPV (human papilloma virus) infection Stage 3 severe COPD by GOLD classification Tobacco abuse Home Medications cholecalciferol (vitamin D3) 50 mcg (2,000 unit) capsule 50 mcg PO DAILY SUPPLEMENT 12/29/18 [History Last Taken 10/31/22] pantoprazole 40 mg tablet,delayed release 40 mg PO DAILY GERD 08/12/20 [History Last Taken 10/31/22] albuterol sulfate 90 mcg/actuation aerosol inhaler (Ventolin HFA) 2 puff inhalation Q4H PRN shortness of breath or wheezing #18 grams 11/14/20 [Rx Last Taken Unknown] aripiprazole 5 mg tablet (Abilify) 5 mg PO DAILY mood 01/22/21 [History Last Taken 10/31/22] hydroxyzine pamoate 25 mg capsule 25 mg PO Q6H PRN PRN Itching 06/12/21 [History Last Taken 10/31/22] mirtazapine 45 mg tablet 45 mg PO QHS sleep 01/16/22 [History Last Taken 10/31/22] amlodipine 2.5 mg tablet 2.5 mg PO DAILY BP 11/01/22 [History Last Taken Unknown] frosdi-lhwbnizz-zrfjcxi 24,000-76,000-120,000 unit capsule,delayed rel (Creon) 1cap PO TIDCM Check with primary doctor 11/01/22 [History Last Taken 10/31/22] loperamide 2 mg capsule 2 mg PO Q4H PRN PRN Diarrhea 11/01/22 [History Last Taken Unknown] simvastatin 20 mg tablet 20 mg PO QHS cholesterol 11/01/22 [History Last Taken 10/31/22] tramadol 50 mg tablet 50 mg PO Q6H PRN pain #7 tabs 06/02/23 [Rx Last Taken Unknown] fluticasone fur. 100 mcg-umeclid 62.5 mcg-vilant 25 mcg inhalat.powder (Trelegy Ellipta) 1 inh inhalation Q24H 06/30/23 [History Last Taken Unknown] doxycycline monohydrate 100 mg capsule 100 mg PO BID #20 CAPSULES 07/08/23 [Rx Last Taken Unknown] oxycodone 5 mg tablet 5 mg PO Q8H PRN pain 1 day #3 tabs 07/08/23 [Rx Last Taken Unknown] prednisone 20 mg tablet 40 mg (2 x 20 mg) PO DAILY #8 tabs 07/08/23 [Rx Last Taken Unknown] Allergy/AdvReac Type Severity Reaction Status Date / Time clindamycin Allergy Intermediate Hives Verified 01/02/24 22:38 Penicillins Allergy Hives Verified 01/02/24 18:59 sulfamethoxazole Allergy Other Verified 01/02/24 18:59 [From Bactrim] trimethoprim [From Bactrim] Allergy Other Verified 01/02/24 18:59 hydrocodone [From Bode] AdvReac Itching Verified 01/02/24 18:59 Family History Mother Diabetes Hypertension Heart disease High cholesterol Arthritis Thyroid disorder Brother Hypertension Sister Cancer cervical Thyroid disorder Father Kidney disease Daughter Thyroid disorder Surgical History History of appendectomy History of colonoscopy History of tubal ligation Social History (Updated 01/02/24 @ 22:[address] Carin Meraz MD) household members: family Smoking Status: Current every day smoker tobacco type: cigarettes Smoking packsper day: 1 Smoking cigarettes per day: 20.0 Tobacco: How many years used: 30 second hand exposure: Yes alcohol intake: former details: Sober since 2020. substance use type: does not use caffeine: Yes ROS ROS Narrative Admission Review of Systems: CONSTITUTIONAL: No weight loss, fever, chills, + weakness or fatigue. HEENT: + Congestion, rhinorrhea. Eyes: No visual loss, blurred vision, double vision or yellow sclerae. Ears, Nose, Throat: No hearing loss, sneezing. SKIN: No rash or itching, lesions, wounds. CARDIOVASCULAR: + Pleuritic chest discomfort. No palpitations, edema, orthopnea, syncopal events. RESPIRATORY: Dyspnea, cough with productive sputum, wheezing. No hemoptysis. GASTROINTESTINAL: + Anorexia, nausea, emesis, loose stools. No abdominal pain, melena, BRBPR. GENITOURINARY: No dysuria, frequency, urgency or retention. NEUROLOGICAL: No headache, dizziness, syncope, paralysis, ataxia, numbness or tingling in the extremities, focal weakness, change in bowel or bladder control,seizure. MUSCULOSKELETAL: + muscle, back pain, joint pain or stiffness. HEMATOLOGIC: + History of anemia. No bleeding or bruising. LYMPHATICS: No enlarged nodes. No history of splenectomy. PSYCHIATRIC: + History of anxiety and depression. ENDOCRINOLOGIC: + reports of sweating, cold or heat intolerance. No polyuria or polydipsia. ALLERGIES: + History of asthma, allergic rhinitis. Vital Signs Vital Signs Vital Signs: 01/02/24 18:57 01/02/24 18:57 01/02/24 18:59 Temperature 98.1 F 98.1 F 98.1 F Temperature Source Temporal Temporal Oral Pulse Rate 120 H 120 H 116 H Respiratory Rate 24 H 24 H 21 H Respiratory Effort Respiratory Depth Respiratory Pattern Blood Pressure 126/93 H 126/93 H 130/96 H Blood Pressure Mean 104 104 107 Pulse Ox 90 90 93 Oxygen Delivery Method Room Air Room Air Room Air Oxygen Flow Rate (L/min) 01/02/24 19:23 01/02/24 19:16 01/02/24 19:59 Temperature 97.8 F Temperature Source Oral Pulse Rate 115 H Respiratory Rate 32 H Respiratory Effort Short of Breath Respiratory Depth Shallow Respiratory Pattern Normal Blood Pressure 130/96 H Blood Pressure Mean 107 Pulse Ox 93 Oxygen Delivery Method Room Air Nasal Cannula Nasal Cannula Oxygen Flow Rate (L/min) 2 2 01/02/24 21:00 01/02/24 19:40 01/02/24 20:17 Temperature 98.8 F Temperature Source Oral Pulse Rate 127 H 122 H Respiratory Rate 26 H 24 H Respiratory Effort Respiratory Depth Respiratory Pattern Tachypnea Blood Pressure 135/84 H Blood Pressure Mean 101 Pulse Ox 93 93 Oxygen Delivery Method Nasal Cannula Nasal Cannula Oxygen Flow Rate (L/min) 2 2 01/02/24 19:21 01/02/24 19:30 01/02/24 19:45 Temperature Temperature Source Pulse Rate 115 H 111 H Respiratory Rate 32 H 25 H Respiratory Effort Respiratory Depth Respiratory Pattern Blood Pressure 130/96 H 136/117 H Blood Pressure Mean 104 124 Pulse Ox 88 90 90 Oxygen Delivery Method Oxygen Flow Rate (L/min) 01/02/24 19:46 01/02/24 20:00 01/02/24 20:15 Temperature Temperature Source Pulse Rate 120 H 123 H Respiratory Rate 31 H 32 H Respiratory Effort Respiratory Depth Respiratory Pattern Blood Pressure 132/78 H 123/89 H Blood Pressure Mean 96 98 Pulse Ox 93 93 95 Oxygen Delivery Method Oxygen Flow Rate (L/min) 2 01/02/24 20:16 01/02/24 20:30 01/02/24 20:45 Temperature Temperature Source Pulse Rate 123 H 121 H Respiratory Rate 32 H 27 H Respiratory Effort Respiratory Depth Respiratory Pattern Blood Pressure 132/97 H 145/94 H 126/89 H Blood Pressure Mean 108 109 101 Pulse Ox 95 94 Oxygen Delivery Method Oxygen Flow Rate (L/min) 01/02/24 21:01 01/02/24 21:03 01/02/24 21:15 Temperature Temperature Source Pulse Rate 125 H Respiratory Rate 42 H Respiratory Effort Respiratory Depth Respiratory Pattern Blood Pressure 104/88 H 126/99 H Blood Pressure Mean 93 108 Pulse Ox Oxygen Delivery Method Oxygen Flow Rate (L/min) 01/02/24 21:30 01/02/24 21:45 Temperature Temperature Source Pulse Rate 117 H 127 H Respiratory Rate 39 H 26 H Respiratory Effort Respiratory Depth Respiratory Pattern Blood Pressure 143/94 H 135/84 H Blood Pressure Mean 110 99 Pulse Ox 92 Oxygen Delivery Method Oxygen Flow Rate (L/min) Weight Weight: 135 lb Body Mass Index (BMI) 23.9 Physical Exam Narrative Physical Examination: General: Awake, alert, oriented x 3 and cooperative, seated upright in the ED bed, fatigued, moist coughing during evaluation, ill-appearing. Skin: Normal color, normal turgor, no icterus, no cyanosis except occasional staged ecchymoses, erythematous rash upper extremity. HEENT: AT/NC, EOMI, PERRLA, moderately dry MM, no carotid bruits or JVD noted. Lungs: Diminished, greater bases, rhonchorous, right greater than left, end expiratory wheezing, some accessory muscle usage but no distress. Heart: Mildly tachycardic with regular rhythm; no gallop, rub audible. Abdomen: Soft, NTTP, appears distended but patient notes this is chronic, mildlytympanitic, hyperactive BS, no appreciated HSM but difficult given chronic distended status. Extremities: No cyanosis, clubbing, or edema. Neurological: Patient awake, alert, oriented as noted, cognitive function intact; pupils equally reactive to light and accommodation, cranial nerves grossly normal, moving all 4 extremities, no focal deficits, strength severely globally decreased secondary to acute presentation. Psychiatric: Affect appears fatigued, ill-appearing, no acute evidence of depressive or anxiety feelings but does have underlying history. Results Lab / Micro Data 01/02/24 19:25 01/02/24 19:25 Labs: Laboratory Results - last 24 hr 01/02/24 19:25: WBC 25.7 H, RBC 4.99, Hgb 12.9, Hct 41.5, MCV 83.2, MCH 25.9 L, MCHC 31.1 L, RDW Std Deviation 47.1 H, RDW Coeff of Min 15.6 H, Plt Count 311, MPV 9.8, Immature Gran % (Auto) 0.800, Neut % (Auto) 81.7 H, Lymph % (Auto) 9.6 L, [place] % (Auto) 6.9, Eos % (Auto) 0.6, Baso % (Auto) 0.4, Absolute Neuts (auto)21.0 H, Absolute Lymphs (auto) 2.46, Nucleated RBC % 0, Differential Comment SCANNED, Diff Path Review January, Sodium 133 L, Potassium 3.9, Chloride 101, Carbon Dioxide 25.0, Anion Gap 7, BUN 14, Creatinine 0.96, Estim Creat Clear Calc 51.55, Est GFR (MDRD) Af Amer 77, Est GFR (MDRD) Non-Af 63, BUN/Creatinine Ratio 14.7, Glucose 126 H, Calcium 8.9, Troponin I High Sens 13 01/02/24 19:33: PT 14.5, INR 1.1, APTT 32.2, Total Bilirubin 0.30, Direct Bilirubin 0.13, AST 14 L, ALT 13, Alkaline Phosphatase 148 H, B-Natriuretic Peptide 75.1, Total Protein 8.3 H, Albumin 3.2, Globulin 5.1 H 04/06/24 20:35: Lactic Acid 1.2 Micro: Microbiology 01/02/24 19:25 Mucosa - Nose SARS-CoV-2, Influenza & RSV (PCR) - Final ABG Data ABG results: ABG 01/02/24 20:06 Specimen Type ART Sample Site R Radial pH 7.42 Bicarbonate Actual 20.7 L Total CO2 22 Base Excess -4 L O2 Saturation 92 L O2 % 21.0 ABG pCO2 32.2 L ABG pO2 62 L Sergei Test Positive O2 Delivery Device Room Air Vent Mode Not entered Imaging Radiology Impression Chest X-Ray 01/02/24 19:16 IMPRESSION: No radiographic evidence of acute cardiopulmonary disease. Electronically Signed: Jeff Thakkar MD at 20:22 EDT , Chest CTA 01/02/24 20:13 IMPRESSION: Normal CTA chest examination, without a demonstrated pulmonary embolism or arterial dissection. Right middle and upper lobe infiltrates consistent with pneumonia. Electronically Signed: Jeff Thakkar MD at 21:39 EDT , Assessment & Plan Assessment/Plan (1) Pneumonia: PLAN: Plan The patient is a 58 y/o F w/ PMHx: EtOH abuse, Tobacco use, COPD/Asthma w/ Chronic Hypoxic Respiratory Failure (PRN), HTN, HLD, Chronic anemia, Anxiety andDepression, Chronic pancreatitis associated with EtOH abuse who presents to the [facility] ED on 01/02/24 with history of onset of viral upper respiratory type symptoms starting 2 to 3 weeks prior to current presentation with now worsening cough which is moist and productive with subjective fevers and diaphoresis in additionto loose stools with worsening dyspnea placing her self back on supplemental oxygen with generalized pleuritic chest discomfort worse with coughing with movement in addition to nausea and an bout of emesis on day of presentation prompting eventual ED evaluation. #1. Acute Hypoxia on Chronic (PRN supplemental) secondary to Recent suspected Acute Viral Syndrome with now Superimposed Acute right middle and upper lobe community-acquired pneumonia and concurrent Acute on Chronic COPD/Asthma Exacerbation: Will admit to MS telemetry, maintain on oxygen with wean as tolerated to room air, continue ATC duonebs, PRN albuterol, maintained on IV Rocephin and Azithromycin, IV Solu-Medrol, HOB, IS parameters w/ pending sputum cultures, full respiratory viral panel, procalcitonin and urine antigens. #2. Left forearm erythematous rash, unclear etiology: Left forearm with erythematous rash over the medial aspect just inferior to the elbow with no increased warmth or specific abrasions or lesions, as noted above #1 planned IV Solu-Medrol, continue to monitor. #3. Chronic normocytic anemia: Admission hemoglobin 12.9, MCV 83 point, baseline hemoglobin has vacillated however labs have not been done recently, last noted 11/07/2022 8.8 however this was during an acute presentation, previousto this baseline appears 11-13, will continue to trend. #4. History of EtOH Abuse: Reportedly sober since 2020, encourage continued sobriety. #5. Hypertension: Will continue patient home amlodipine regimen, PRN hydralazine. #6. Hyperlipidemia: We will continue patient on statin therapy. #7. Anxiety and depression: We will continue patient home mirtazapine as well as hydroxyzine and Abilify home regimen. #8. Chronic pancreatitis, alcohol related: We will continue patient home Creon regimen. #9. Tobacco Abuse: Encouraged cessation, inpatient consultation per RT, NR if desired. #10. GERD: We will continue patient home PPI. #11. DVT prophylaxis: Lovenox. #12. CODE status: Patient does not have healthcare power of deputy prosecuting attorney or living will in place but notes that if she needed a medical decision maker in the case that she was unable she would want her Sister Domonique Augustine to be her decision-maker. Discussed CODE status at length including difference between FULL code, DNR-CCA and DNR-CC status. Following discussions about the differences in these status, requested Full Code status. Advanced Care Planning Face to Face Time: 16minutes. Charges/Coding Visit Charges Inpatient E&M: 84367 Init Hosp L3 Procedures Hospitalists Procedures: 83094 Advncd Care Plan 30 Min 01/02/24 2242 <Electronically signed by Carin Meraz MD> Cosigner Signature (if applicable): CC: CRAMEN Easton; Dr. Carin Meraz MD~ Signed [facility] Work Phone: Hospital Discharge instructions* Activity:activity as tolerated. * Labs 1 (Modify Template):Lab Test(s): RFPDate To Be Drawn: 10/30/22Call Results To: Soila Easton CNP or Fax Results To: [phone]: PCP consider monitoring improvement of CHUY upon recent hospital admission * Oxygen:Administer oxygen at 2 liters/min via nasal cannula to maintain SpO2 % of 88-92 with activity. * Additional Orders:Additional Instructions: Dear Ms. Banuelos,You presented to us as transfer from [facility] for a possible biopsy of the right eye infiltrate by our Oculoplastic service. You were evaluated by the eye doctors here and due to the great improvement in your eye's swelling and redness on antibiotics alone the decision was made to avoid biopsy in such a risky area (behind your right eye). Our Infectious Disease specialist saw you as well and decided to keep you on oral antibiotics after discharge. You were put on Augmentin 875mg twice a day until 11/04/22. While you were here you developed diarrhea possibly from the antibiotics. Work up for C. diff was negative. Diarrhea should resolve after ending the antibiotics course. Please stay hydrated by drinking water to replenish fluidsloss. You also developed an acute kidney injury, possibly from the diarrhea and fluid loss. It should resolve once you are sufficiently hydrated and the diarrhea is under control. We held your blood pressure medication lisinopril as it might worsen kidney injury. Please discuss restarting it with your PCP as your kidney injury recovers. * Call Provider If:Any new concerning symptoms. * Follow Up Appointment 1:Physician/Dept/Service: Primary:Lorene Guzman for Referral: Establish with Primary Care ProviderScheduled Date/Time: 15-Dec-2022 16:00Location: [address] [place] [address], [address] [address] faxPhone Number: [phone]: Please bring your insurance card, photo id, a list of medication in the original bottle, any co-pays you may have, and the discharge summary * Follow Up Appointment 2:Physician/Dept/Service: Ophthalmology: Dr Ansari Date/Time: 03-Dec-2022 15:30Location: [facility] [address] , [address] [facility] [address] Number: [phone]: Please bring your insurance card, photo id, a list of medication in the original bottle, any co-pays you may have, and the discharge summary * Follow Up Appointment 3:Physician/Dept/Service: Soila Easton CNPLocation: [address] [facility] [address]Bgqrd Number: [facility] Additional Instructions Take medications as prescribed. Follow-up with your doctor.[facility] Work Phone: Hospital Discharge instructions Additional Instructions Follow-up with pain management on January 05 as scheduled. Quit smoking. Return with fever, increased pain, new or worsening symptoms.[facility] Work Phone: Hospital Discharge instructions Additional Instructions Your blood work and CT are normal but I this is a flareup of your chronic pancreatitis. I prescribed more Zofran. Use tramadol as needed for breakthrough pain. Follow-up with your GI specialist.[facility] Work Phone: Reason for referral (narrative)* Diagnostic Procedure Only (Routine) - Authorized Specialty Diagnoses / Procedures Referred By Travis melendez Referred To Contact US IMAGING Diagnoses 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 chronic pancreatitis (HCC) Alcoholic hepatitis without ascites Procedures US ABD RT UPPER QUADRANT US ABDOMINAL REAL TIME W/IMAGE LIMITED Soila Easton APRN.CNP [address] [place] [address] [facility] Referral ID Status Reason Start Date Expiration Date Visits Requested Visits Authorized [id number] Authorized Auto-Generat ed Referral 04/17/2022 05/17/2023 1 1 * Consult, Test, Treat (Routine) - Authorized Specialty Diagnoses / Procedures Referred By Contac t Referred To Contact Gastroenterology Diagnoses 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 chronic pancreatitis (HCC) Alcoholic hepatitis without ascites Procedures CONSULT TO GASTROENTEROLOGY OFFICE/OUTPATIENT NEW HIGH MDM 60-74 MINUTES Soila Easton APRN.CNP [address] [place] [address] Referral ID Status Reason Start Date Expiration Date Visits Requested Visits Authorized [id number] Authorized PCP Requested Referral 04/17/2022 04/17/2023 1 1 [facility] for referral (narrative)* Diagnostic Procedure Only (Routine) - Closed Specialty Diagnoses / Procedures Referred By Travis t Referred To Contact US IMAGING Diagnoses 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 chronic pancreatitis (HCC) Alcoholic hepatitis without ascites Procedures US ABD RT UPPER QUADRANT US ABDOMINAL REAL TIME W/IMAGE LIMITED Soila Easton APRN.CNP [address] [place] [address] Us Imaging Referral ID Status Reason Start Date Expiration Date V isits Requested Visits Authorized [id number] Closed Auto-Generate d Referral 04/17/2022 05/17/2023 1 1 [facility] for referral (narrative)* Diagnostic Procedure Only (Routine) - Pending Review Specialty Diagnoses / Procedures [facility] Referred To Contact BR [facility] Diagnoses Encounter for screening mammogram for breast cancer Procedures SIMI SCREENING SCREENING MAMMOGRAPHY BI 2-VIEW BREAST INC CAD Annmarie Elkins MD [address] [place] [address] [facility] [address] [place] [address] Referral ID Status Reason Start Date Expiration Date Visits Requested Visits Authorized [id number] Pending Review Auto-Generat ed Referral 06/25/2022 07/25/2023 1 1 [facility] for referral (narrative)* Outpatient Procedure (Routine) - Authorized Specialty Diagnoses / Procedures Referred By Contac t Referred To Contact [facility] Diagnoses Numbness and tingling of both lower extremities Neuropathy Numbness and tingling of both feet Procedures EMG(NEURO/NI) NERVE CONDUCTION STUDIES 9-10 Mariluz Gardiner PA-C [address] [place] [address] [facility] [address] [place] [address] Referral ID Status Reason Start Date Expiration Date Visits Requested Visits Authorized [id number] Authorized Auto-Generat ed Referral 11/26/2022 09/27/2023 1 1 [facility] for referral (narrative)* Diagnostic Procedure Only (Routine) - Pending Review Specialty Diagnoses / Procedures Referred By Travis melendez Referred To Contact BR IMAGING Diagnoses Encounter for screening mammogram for breast cancer Procedures SIMI SCREENING SCREENING MAMMOGRAPHY BI 2-VIEW BREAST INC Annmarie Chanel MD [address] [place] [address] [facility] [address] [place] [phone] Referral ID Status Reason Start Date Expiration Date Visits Requested Visits Authorized [id number] Pending Review Auto-Generat ed Referral 06/03/2023 07/02/2024 1 1 [facility] for referral (narrative)* Diagnostic Procedure Only (Routine) - New Request Specialty Diagnoses / Procedures Referred By Travis melendez Referred To Contact BR IMAGING Diagnoses Encounter for screening mammogram for breast cancer Procedures SIMI SCREENING W CYNTHIA SCREENING DIGITAL BREAST TOMOSYNTHESIS BI SCREENING MAMMOGRAPHY BI 2-VIEW BREAST INC Annmarie Chanel MD [address] [place] [address] [facility] [address] [place] [phone] Referral ID Status Reason Start Date Expiration Date Visits Requested Visits Authorized [id number] New Request Auto-Generat ed Referral 05/04/2024 06/03/2025 1 1 [facility] for referral (narrative)* Diagnostic Procedure Only (Routine) - Closed Specialty Diagnoses / Procedures [facility] Referred To Contact XR IMAGING Diagnoses Numbness and tingling of both lower extremities Procedures XR LUMBAR GENERAL 3V AP/LAT/L5-S1 RADEX SPINE LUMBOSACRAL 2/3 VIEWS Annmarie Elkins MD [address] [place] [address] [place] [address] Referral ID Status Reason Start Date Expiration Date V isits Requested Visits Authorized [id number] Closed Auto-Generate d Referral 11/25/2022 12/25/2023 1 1 [facility] for referral (narrative)* Diagnostic Procedure Only (Routine) - Authorized Specialty Diagnoses / Procedures [facility] Referred To Contact [facility] Diagnoses Upper abdominal pain Nausea Procedures US ABD RIGHT UPPER QUADRANT US ABDOMINAL REAL TIME W/IMAGE LIMITED Soila Easton APRN.DAYTIME CAREGIVER [address] [place] [address] [place] [address] Referral ID Status Reason Start Date Expiration Date Visits Requested Visits Authorized [id number] Authorized Auto-Generat ed Referral 09/09/2025 1 1 [facility] for referral (narrative)* Outpatient Procedure (Routine) - New Request Specialty Diagnoses / Procedures [facility] Referred To Contact [facility] Diagnoses Chronic recurrent pancreatitis (HCC) 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 chronic pancreatitis (HCC) Chronic RUQ pain Procedures EGD - THERAPEUTIC, EUS, OR TUBE INTERVENTIONS EGD TRANSORAL BIOPSY SINGLE/MULTIPLE Juan Senior APRN.DAYTIME CAREGIVER [address] [place] [address] [facility] [address] [place] [address] Referral ID Status Reason Start Date Expiration Date Visits Requested Visits Authorized [id number] New Request Auto-Generat ed Referral 11/02/2024 11/02/2025 1 1 * Consult, Test, Treat (Routine) - Pending Review Specialty Diagnoses / Procedures Referred By Contac t Referred To Contact [facility] Diagnoses Chronic recurrent pancreatitis (HCC) 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 chronic pancreatitis (HCC) Chronic RUQ pain Procedures [facility]SULT TO [facility] OFFICE/OUTPATIENT [facility] 60 MINUTES Juan Senior APRN.DAYTIME CAREGIVER [address] [place] [address] Referral ID Status Reason Start Date Expiration Date Visits Requested Visits Authorized [id number] Pending Review PCP Requested Referral 11/02/2024 01/31/2025 1 1 [facility] for referral (narrative)No reason for referral [facility]: Reason for visit Narrative* Diagnostic Procedure Only (Routine) - Closed Specialty Diagnoses / Procedures Referred By Contac t Referred To Contact XR IMAGING Diagnoses Numbness and tingling of both lower extremities Procedures XR LUMBAR GENERAL 3V AP/LAT/L5-S1 RADEX SPINE LUMBOSACRAL 2/3 VIEWS Annmarie Elkins MD [address] [place] [address] X[facility] [place] [address] Referral ID Status Reason Start Date Expiration Date V isits Requested Visits Authorized [id number] Closed Auto-Generate d Referral 11/25/2022 12/25/2023 1 1 [facility] for visit Narrative* Outpatient Procedure (Routine) - Closed Specialty Diagnoses / Procedures Referred By Contac t Referred To Contact [facility] Diagnoses Chronic recurrent pancreatitis (HCC) 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 chronic pancreatitis (HCC) Chronic RUQ pain Procedures EGD - THERAPEUTIC, EUS, OR TUBE INTERVENTIONS EGD TRANSORAL BIOPSY SINGLE/MULTIPLE Juan Senior APRN.DAYTIME CAREGIVER [address] [place] [address] Phone: tel: fax: [facility] [address] [place] [address] Referral ID Status Reason Start Date Expiration Date V isits Requested Visits Authorized [id number] Closed Auto-Generate d Referral 11/02/2024 11/02/2025 1 1 [facility] Outpatient Procedure (Routine) - Closed Specialty Diagnoses / Procedures Referred By Contac t Referred To Contact [facility] Diagnoses Other chronic pancreatitis (HCC) Procedures ERCP ERCP DX COLLECTION SPECIMEN BRUSHING/WASHING Jane Farrell MD [address] [address] Phone: tel: fax: [facility] [address] [place] [address] Referral ID Status Reason Start Date Expiration Date V isits Requested Visits Authorized [id number] Closed Auto-Generate d Referral 12/06/2024 09/27/2025 1 1 [facility] Summary Purpose Family History No Family History Records Found Relationship Condition Age at Onset Recorded Date/T ryan mother Diabetes mellitus Unknown Hypertension Unknown Cardiac disease Unknown High blood cholesterol Unknown Arthritis Unknown Disorder of thyroid Unknown brother Hypertension Unknown sister Malignant neoplasm Unknown father Kidney disorder Unknown daughter Disorder of thyroid Unknown Unknown Family Member Name Dates Details No significant family histor y: Mother, Father(V49.89, Z78.9) Status:Active Advance Directives No Advanced Directives Records FoundDocuments on File Type Date Recorded 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 Advance Directive(s) 01/10/2021 8:39 AM Advance Directive(s) 12/28/2020 10:28 AM Advance Directive(s) 12/05/2019 6:41 AM Advance Directive Response Recorded Date/ Time Advance Directives No October 11:35am Living Will No March 03, 2022 1 2:49pm Power of Pc Analyst No March 03, 2022 12:49pm Documents on File Type Date Recorded 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 Thi s is the code status chosen by the patient/surrogate. Latest Code Status on File Code Status Date Activated Date Inactivated Comments Full Code 10/20/2022 4:52 PM 10/24/2022 1:40 AM Advance Directive Response Recorded Date/ Time Advance Directives No October 10:35am Living Will No November 01 11:45pm Power of Pc Analyst No November 01, 2022 11:45pm Advance Directive Response Recorded Date/ Time Advance Directives No October 11:35am Living Will No June 02, 023 3:53pm Power of Pc Analyst No June 02, 2023 3:53pm Advance Directive Response Recorded Date/ Time Advance Directives No October 11:35am Living Will No July 08 6:10pm Power of Pc Analyst No July 08, 2023 6:10pm Advance Directive Response Recorded Date/ Time Advance Directives No October 11:35am Living Will No January 02, 2024 7:23pm Power of Pc Analyst No January 01 7:23pm Advance Directive Response Recorded Date/ Time Advance Directives No October 11:35am Living Will No January 02, 2024 11:15pm Power of Pc Analyst No January 01 11:15pm Advance Directive Response Recorded Date/ Time Advance Directives No October 11:35am Living Will No January 19, 2024 11:39pm Power of Pc Analyst No January 18 11:39pm Advance Directive Response Recorded Date/ Time Living Will No December 04, 2024 4:02pm Power of Pc Analyst No December 04 4:02pm Advance Directives No October 11:35am Advance Directive Response Recorded Date/ Time Living Will No December 04, 2024 8:21pm Power of Pc Analyst No December 04 8:21pm Advance Directives No October 11:35am Advance Directive Response Recorded Date/ Time Living Will No December 04, 2024 8:21pm Do you have a Healthcare Power of Pc Analyst? No December 04, 2024 8:21pm Living Will No December 24, 2024 8:13pm Do you have a Healthcare Power of Pc Analyst? No December 24, 2024 8:13pm Advance Directives No October 11:35am Advance Directive Response Recorded Date/ Time Living Will No December 04, 2024 8:21pm Do you have a Healthcare Power of Pc Analyst? No December 04, 2024 8:21pm Living Will No December 24, 2024 8:13pm Do you have a Healthcare Power of Pc Analyst? No December 24, 2024 8:13pm Living Will No January 01, 2025 8:27pm Do you have a Healthcare Power of Pc Analyst? No January 01, 2025 8:27pm Advance Directives No October 11:35am Advance Directive Response Recorded Date/ Time Living Will No January 19, 2024 11:39pm Do you have a Healthcare Power of Pc Analyst? No January 19, 2024 11:39pm Living Will No December 04, 2024 8:21pm Do you have a Healthcare Power of Pc Analyst? No December 04, 2024 8:21pm Living Will No December 24, 2024 8:13pm Do you have a Healthcare Power of Pc Analyst? No December 24, 2024 8:13pm Living Will No January 01, 2025 8:27pm Do you have a Healthcare Power of Pc Analyst? No January 01, 2025 8:27pm Do you have a Healthcare Power of Pc Analyst? Yes January 27, 2025 10:20am Name of Medical Power of Pc Analyst sister January 27, 2025 10:20am Advance Directives No October 11:35am Advance Directive Response Recorded Date/ Time Living Will No January 19, 2024 11:39pm Do you have a Healthcare Power of Pc Analyst? No January 19, 2024 11:39pm Living Will No December 04, 2024 8:21pm Do you have a Healthcare Power of Pc Analyst? No December 04, 2024 8:21pm Living Will No December 24, 2024 8:13pm Do you have a Healthcare Power of Pc Analyst? No December 24, 2024 8:13pm Living Will No January 01, 2025 8:27pm Do you have a Healthcare Power of Pc Analyst? No January 01, 2025 8:27pm Do you have a Healthcare Power of Pc Analyst? Yes January 27, 2025 10:20am Name of Medical Power of Pc Analyst sister January 27, 2025 10:20am Do you have a Healthcare Power of Pc Analyst? No February 26, 2025 2:12pm Advance Directives No October 11:35am Chief Complaint and Reason for Visit Chief Complaint 4 M FU SOB Reason for Visit Chronic respiratory failure with hypoxia Smoking greater than 30 pack years Stage 3 severe COPD by GOLD classification Chief Complaint SOB LOW DOSE TOBACCO ABUSE Chief Complaint SOB Hospital FU EYE PROBLEM Reason for Visit Chronic respiratory failure with hypoxia Stage 3 severe COPD by GOLD classification Chief Complaint SOB Hospital FU EYE PROBLEM CHUY CHUY CHUY Shortness of breath CHUY CHUY CHUY CHUY CHUY CHUY CHUY CHUY CHUY Reason for Visit Chronic respiratory failure with hypoxia Stage 3 severe COPD by GOLD classification Acute hyponatremia Acute kidney injury Diarrhea Nausea & vomiting Stage 3 severe COPD by GOLD classification Chief Complaint NICOTINE DEP SOB Chief Complaint NICOTINE DEP SOB Test results SOB Reason for Visit Asthma Chronic respiratory failure with hypoxia COPD (chronic obstructive pulmonary disease) Smoking greater than 30 pack years Chief Complaint HYPOXIA, PNA, COPD E XAC Reason for Visit Pleurisy Pneumonia Acute on chronic hypoxic respiratory failure COPD (chronic obstructive pulmonary disease) Chief Complaint HYPOXIA, PNA, COPD E XAC HYPOXIA, PNA, COPD EXAC HYPOXIA, PNA, COPD EXAC Reason for Visit Pleurisy Pneumonia Acute on chronic hypoxic respiratory failure COPD (chronic obstructive pulmonary disease) Chief Complaint HYPOXIA, PNA, COPD E XAC HYPOXIA, PNA, COPD EXAC HYPOXIA, PNA, COPD EXAC HYPOXIA, PNA, COPD EXAC Edema Reason for Visit Pleurisy COPD (chronic obstructive pulmonary disease) Chief Complaint Admit Date J43.2 - Centrilobular emphysema November 24, 2024 8:16am ACUTE HYPOXIC RESP FAILURE; SECONDA TO C OPD EXACER December 04, 2024 6:03pm Reason for Visit Admit Date Acute hypoxic respiratory failure December 04, 2024 6:03pm Chronic pancreatitis December 04, 2024 6:0 3pm COPD with acute exacerbation December 04, 2024 6:03pm Chief Complaint Admit Date J43.2 - Centrilobular emphysema November 24, 2024 8:16am ACUTE HYPOXIC RESP FAILURE; SECONDA TO C OPD EXACER December 04, 2024 6:03pm ACUTE HYPOXIC RESP FAILURE; SECONDA TO C OPD EXACER December 04, 2024 6:04pm ACUTE HYPOXIC RESP FAILURE; SECONDA TO C OPD EXACER December 05, 2024 1:14pm ACUTE HYPOXIC RESP FAILURE; SECONDA TO C OPD EXACER December 05, 2024 7:44pm ACUTE HYPOXIC RESP FAILURE; SECONDA TO C OPD EXACER December 06, 2024 11:34am ACUTE HYPOXIC RESP FAILURE; SECONDA TO C OPD EXACER December 06, 2024 8:24pm ACUTE HYPOXIC RESP FAILURE; SECONDA TO C OPD EXACER December 07, 2024 9:59am ACUTE HYPOXIC RESP FAILURE; SECONDA TO C OPD EXACER December 07, 2024 5:46pm Reason for Visit Admit Date Acute hypoxic respiratory failure December 04, 2024 6:03pm Pulmonary nodule December 04, 2024 6:03 pm Stenosis of left subclavian artery December 04, 2024 6:03pm Chronic pancreatitis December 04, 2024 6:0 3pm COPD with acute exacerbation December 04, 2024 6:03pm Chief Complaint Admit Date J43.2 - Centrilobular emphysema November 24, 2024 8:16am ACUTE HYPOXIC RESP FAILURE; SECONDA TO C OPD EXACER December 04, 2024 6:03pm ACUTE HYPOXIC RESP FAILURE; SECONDA TO C OPD EXACER December 04, 2024 6:04pm ACUTE HYPOXIC RESP FAILURE; SECONDA TO C OPD EXACER December 05, 2024 1:14pm ACUTE HYPOXIC RESP FAILURE; SECONDA TO C OPD EXACER December 05, 2024 7:44pm ACUTE HYPOXIC RESP FAILURE; SECONDA TO C OPD EXACER December 06, 2024 11:34am ACUTE HYPOXIC RESP FAILURE; SECONDA TO C [employer] December 06, 2024 8:24pm ACUTE HYPOXIC RESP FAILURE; SECONDA TO C [employer] December 07, 2024 9:59am ACUTE HYPOXIC RESP FAILURE; SECONDA TO C [employer] EX[employer] December 07, 2024 5:46pm ACUTE HYPOXIC RESP FAILURE; SECONDA TO C [employer] EXACER December 08, 2024 9:44am ACUTE HYPOXIC RESP FAILURE; SECONDA TO C [employer] EXACER December 08, 2024 4:20pm ACUTE HYPOXIC RESP FAILURE; SECONDA TO C [employer] EXACER December 09, 2024 8:09am ACUTE HYPOXIC RESP FAILURE; SECONDA TO C [employer] EXACER December 09, 2024 1:51pm ACUTE HYPOXIC RESP FAILURE; SECONDA TO C [employer] EXACER December 10, 2024 12:51pm ACUTE HYPOXIC RESP FAILURE; SECONDA TO C [employer] EXACER December 11, 2024 11:34am ACUTE HYPOXIC RESP FAILURE; SECONDA TO C [employer] EXACER December 12, 2024 10:00am ACUTE HYPOXIC RESP FAILURE; SECONDA TO C [employer] EXACER December 12, 2024 12:37pm ACUTE HYPOXIC RESP FAILURE; SECONDA TO C [employer] EXACER December 12, 2024 3:54pm Chief Complaint Admit Date J43.2 - Centrilobular emphysema November 24, 2024 8:16am ACUTE HYPOXIC RESP FAILURE; SECONDA TO C [employer] EX[employer]ER December 04, 2024 6:03pm ACUTE HYPOXIC RESP FAILURE; SECONDA TO C [employer] EXACER December 04, 2024 6:04pm ACUTE HYPOXIC RESP FAILURE; SECONDA TO C [employer] EXACER December 05, 2024 1:14pm ACUTE HYPOXIC RESP FAILURE; SECONDA TO C [employer]PD EXACER December 05, 2024 7:44pm ACUTE HYPOXIC RESP FAILURE; SECONDA TO C [employer] EXACER December 06, 2024 11:34am ACUTE HYPOXIC RESP FAILURE; SECONDA TO C [employer] EXACER December 06, 2024 8:24pm ACUTE HYPOXIC RESP FAILURE; SECONDA TO C [employer] EXACER December 07, 2024 9:59am ACUTE HYPOXIC RESP FAILURE; SECONDA TO C [employer] EXACER December 07, 2024 5:46pm ACUTE HYPOXIC RESP FAILURE; SECONDA TO C [employer] EXACER December 08, 2024 9:44am ACUTE HYPOXIC RESP FAILURE; SECONDA TO C [employer] EXACER December 08, 2024 4:20pm ACUTE HYPOXIC RESP FAILURE; SECONDA TO C [employer]PD EXACER December 09, 2024 8:09am ACUTE HYPOXIC RESP FAILURE; SECONDA TO C [employer]PD EXACER December 09, 2024 1:51pm ACUTE HYPOXIC RESP FAILURE; SECONDA TO C [employer]PD EXACER December 10, 2024 12:51pm ACUTE HYPOXIC RESP FAILURE; SECONDA TO C [employer]PD EXACER December 11, 2024 11:34am ACUTE HYPOXIC RESP FAILURE; SECONDA TO C [employer] EXACER December 12, 2024 10:00am ACUTE HYPOXIC RESP FAILURE; SECONDA TO C [employer] EXACER December 12, 2024 12:37pm ACUTE HYPOXIC RESP FAILURE; SECONDA TO C [employer] EXACER December 12, 2024 3:54pm ED follow up December 16, 2024 2:3 8pm Follow up December 23, 2024 9:5 9am ABDOMINAL PAIN AND RIGHT FOOT PAIN December 24, 2024 7:38pm Reason for Visit Admit Date COPD with acute exacerbation December 04, 2024 6:03pm Acute hypoxic respiratory failure December 04, 2024 6:03pm Chronic pancreatitis December 04, 2024 6:0 3pm Pulmonary nodule December 04, 2024 6:03 pm Stenosis of left subclavian artery December 04, 2024 6:03pm Dysphagia December 16, 2024 2:3 8pm Chronic pancreatitis December 16, 2024 2: 38pm Acute cholecystitis December 23, 2024 9:5 9am Alcoholic hepatitis December 23, 2024 9:5 9am Anxiety and depression December 23, 2024 9:59am Asthma December 23, 2024 9:5 9am Chronic pancreatitis December 23, 2024 9: 59am Chronic respiratory failure with hypoxia December 23, 2024 9:59am COPD (chronic obstructive pulmonary dise ase) December 23, 2024 9:59am Smoking greater than 30 pack years December 23, 2024 9:59am Chief Complaint Admit Date J43.2 - Centrilobular emphysema November 24, 2024 8:16am ACUTE HYPOXIC RESP FAILURE; SECONDA TO C [employer] EX[employer]ER December 04, 2024 6:03pm ACUTE HYPOXIC RESP FAILURE; SECONDA TO C [employer] EXACER December 04, 2024 6:04pm ACUTE HYPOXIC RESP FAILURE; SECONDA TO C [employer]PD EXACER December 05, 2024 1:14pm ACUTE HYPOXIC RESP FAILURE; SECONDA TO C OPD EXACER December 05, 2024 7:44pm ACUTE HYPOXIC RESP FAILURE; SECONDA TO C OPD EXACER December 06, 2024 11:34am ACUTE HYPOXIC RESP FAILURE; SECONDA TO C [employer]PD EXACER December 06, 2024 8:24pm ACUTE HYPOXIC RESP FAILURE; SECONDA TO C OPD EXACER December 07, 2024 9:59am ACUTE HYPOXIC RESP FAILURE; SECONDA TO C OPD EXACER December 07, 2024 5:46pm ACUTE HYPOXIC RESP FAILURE; SECONDA TO C OPD EXACER December 08, 2024 9:44am ACUTE HYPOXIC RESP FAILURE; SECONDA TO C OPD EXACER December 08, 2024 4:20pm ACUTE HYPOXIC RESP FAILURE; SECONDA TO C OPD EXACER December 09, 2024 8:09am ACUTE HYPOXIC RESP FAILURE; SECONDA TO C OPD EXACER December 09, 2024 1:51pm ACUTE HYPOXIC RESP FAILURE; SECONDA TO C OPD EXACER December 10, 2024 12:51pm ACUTE HYPOXIC RESP FAILURE; SECONDA TO C OPD EXACER December 11, 2024 11:34am ACUTE HYPOXIC RESP FAILURE; SECONDA TO C OPD EXACER December 12, 2024 10:00am ACUTE HYPOXIC RESP FAILURE; SECONDA TO C OPD EXACER December 12, 2024 12:37pm ACUTE HYPOXIC RESP FAILURE; SECONDA TO C [employer]PD EXACER December 12, 2024 3:54pm ED follow up December 16, 2024 2:3 8pm Follow up December 23, 2024 9:5 9am ABDOMINAL PAIN AND RIGHT FOOT PAIN December 24, 2024 7:38pm ABD PAIN January 01, 2025 8:27 pm Chief Complaint Admit Date J43.2 - Centrilobular emphysema November 24, 2024 8:16am ACUTE HYPOXIC RESP FAILURE; SECONDA TO C [employer] EXACER December 04, 2024 6:03pm ACUTE HYPOXIC RESP FAILURE; SECONDA TO C OPD EXACER December 04, 2024 6:04pm ACUTE HYPOXIC RESP FAILURE; SECONDA TO C OPD EXACER December 05, 2024 1:14pm ACUTE HYPOXIC RESP FAILURE; SECONDA TO C OPD EXACER December 05, 2024 7:44pm ACUTE HYPOXIC RESP FAILURE; SECONDA TO C OPD EXACER December 06, 2024 11:34am ACUTE HYPOXIC RESP FAILURE; SECONDA TO C OPD EXACER December 06, 2024 8:24pm ACUTE HYPOXIC RESP FAILURE; SECONDA TO C OPD EXACER December 07, 2024 9:59am ACUTE HYPOXIC RESP FAILURE; SECONDA TO C OPD EXACER December 07, 2024 5:46pm ACUTE HYPOXIC RESP FAILURE; SECONDA TO C OPD EXACER December 08, 2024 9:44am ACUTE HYPOXIC RESP FAILURE; SECONDA TO C OPD EXACER December 08, 2024 4:20pm ACUTE HYPOXIC RESP FAILURE; SECONDA TO C OPD EXACER December 09, 2024 8:09am ACUTE HYPOXIC RESP FAILURE; SECONDA TO C OPD EXACER December 09, 2024 1:51pm ACUTE HYPOXIC RESP FAILURE; SECONDA TO C OPD EXACER December 10, 2024 12:51pm ACUTE HYPOXIC RESP FAILURE; SECONDA TO C OPD EXACER December 11, 2024 11:34am ACUTE HYPOXIC RESP FAILURE; SECONDA TO C OPD EXACER December 12, 2024 10:00am ACUTE HYPOXIC RESP FAILURE; SECONDA TO C OPD EXACER December 12, 2024 12:37pm ACUTE HYPOXIC RESP FAILURE; SECONDA TO C [employer]PD EXACER December 12, 2024 3:54pm ED follow up December 16, 2024 2:3 8pm Follow up December 23, 2024 9:5 9am ABDOMINAL PAIN AND RIGHT FOOT PAIN December 24, 2024 7:38pm ABD PAIN January 01, 2025 8:27 pm sob January 27, 2025 10:13a m 9 M FU February 08, 2025 1:07p m Reason for Visit Admit Date COPD with acute exacerbation December 04, 2024 6:03pm Acute hypoxic respiratory failure December 04, 2024 6:03pm Chronic pancreatitis December 04, 2024 6:0 3pm Pulmonary nodule December 04, 2024 6:03 pm Stenosis of left subclavian artery December 04, 2024 6:03pm Dysphagia December 16, 2024 2:3 8pm Chronic pancreatitis December 16, 2024 2: 38pm Acute cholecystitis December 23, 2024 9:5 9am Alcoholic hepatitis December 23, 2024 9:5 9am Anxiety and depression December 23, 2024 9:59am Asthma December 23, 2024 9:5 9am Chronic pancreatitis December 23, 2024 9: 59am Chronic respiratory failure with hypoxia December 23, 2024 9:59am COPD (chronic obstructive pulmonary dise ase) December 23, 2024 9:59am Smoking greater than 30 pack years December 23, 2024 9:59am Acute cholecystitis February 08, 2025 1:07p m Alcoholic hepatitis February 08, 2025 1:07p m Anxiety and depression February 08, 2025 1: 07pm Asthma February 08, 2025 1:07p m Chronic pancreatitis February 08, 2025 1:07 pm Chronic respiratory failure with hypoxia February 08, 2025 1:07pm COPD (chronic obstructive pulmonary dise ase) February 08, 2025 1:07pm Smoking greater than 30 pack years January 262024 1:07pm Chief Complaint Admit Date J43.2 - Centrilobular emphysema November 24, 2024 8:16am ACUTE HYPOXIC RESP FAILURE; SECONDA TO C [employer] EXACER December 04, 2024 6:03pm ACUTE HYPOXIC RESP FAILURE; SECONDA TO C OPD EXACER December 04, 2024 6:04pm ACUTE HYPOXIC RESP FAILURE; SECONDA TO C OPD EXACER December 05, 2024 1:14pm ACUTE HYPOXIC RESP FAILURE; SECONDA TO C OPD EXACER December 05, 2024 7:44pm ACUTE HYPOXIC RESP FAILURE; SECONDA TO C OPD EXACER December 06, 2024 11:34am ACUTE HYPOXIC RESP FAILURE; SECONDA TO C OPD EXACER December 06, 2024 8:24pm ACUTE HYPOXIC RESP FAILURE; SECONDA TO C OPD EXACER December 07, 2024 9:59am ACUTE HYPOXIC RESP FAILURE; SECONDA TO C OPD EXACER December 07, 2024 5:46pm ACUTE HYPOXIC RESP FAILURE; SECONDA TO C OPD EXACER December 08, 2024 9:44am ACUTE HYPOXIC RESP FAILURE; SECONDA TO C OPD EXACER December 08, 2024 4:20pm ACUTE HYPOXIC RESP FAILURE; SECONDA TO C OPD EXACER December 09, 2024 8:09am ACUTE HYPOXIC RESP FAILURE; SECONDA TO C OPD EXACER December 09, 2024 1:51pm ACUTE HYPOXIC RESP FAILURE; SECONDA TO C OPD EXACER December 10, 2024 12:51pm ACUTE HYPOXIC RESP FAILURE; SECONDA TO C OPD EXACER December 11, 2024 11:34am ACUTE HYPOXIC RESP FAILURE; SECONDA TO C OPD EXACER December 12, 2024 10:00am ACUTE HYPOXIC RESP FAILURE; SECONDA TO C OPD EXACER December 12, 2024 12:37pm ACUTE HYPOXIC RESP FAILURE; SECONDA TO C OPD EXACER December 12, 2024 3:54pm ED follow up December 16, 2024 2:3 8pm Follow up December 23, 2024 9:5 9am ABDOMINAL PAIN AND RIGHT FOOT PAIN December 24, 2024 7:38pm ABD PAIN January 01, 2025 8:27 pm sob January 27, 2025 10:13a m 9 M FU February 08, 2025 1:07p m ABDOMINAL PAIN February 26, 2025 1:57p m Reason for Referral Specialty Diagnoses / Procedures Referred By Contac t Referred To Contact Neurology Diagnoses Numbness and tingling of both lower extremities Procedures CONSULT TO NEUROLOGY OFFICE/OUTPATIENT [facility] 60-74 MINUTES Annmarie Elkins MD [address] [place] [address] Referral ID Status Reason Start Date Expiration Date Visits Requested Visits Authorized [id number] Authorized PCP Requested Referral 11/25/2022 11/25/2023 1 1 Specialty Diagnoses / Procedures Referred By Contac t Referred To Contact XR IMAGING Diagnoses Numbness and tingling of both lower extremities Procedures XR LUMBAR GENERAL 3V AP/LAT/L5-S1 RADEX SPINE LUMBOSACRAL 2/3 VIEWS Annmarie Elkins MD [address] [place] [address] Xr Imaging Referral ID Status Reason Start Date Expiration Date V isits Requested Visits Authorized [id number] Closed Auto-Generate d Referral 11/25/2022 12/25/2023 1 1 Specialty Diagnoses / Procedures Referred By Contac t Referred To Contact CT IMAGING Diagnoses Alcoholic hepatitis without ascites Acute pancreatitis, unspecified complication status, unspecified pancreatitis type Upper abdominal pain Nausea Elevated lipase Generalized abdominal tenderness without rebound tenderness Procedures CT ABD/PEL W IVCON CT ABD & PELVIS W/CONTRAST Soila Easton APRN.IGOR [address] [place] [address] [place] [address] Referral ID Status Reason Start Date Expiration Date Visits Requested Visits Authorized [id number] Pending Review Auto-Generat ed Referral 09/14/2025 1 1 Additional Source Comments INFORMATION SOURCE (unrecogn ized section and content) DATE CREATED AUTHOR 03/24/2018 [facility] ([place]) DATE CREATED AUTHOR AUTHOR'S ORGANIZ ATION 12/05/2019 [facility] DATE CREATED AUTHOR AUTHOR'S ORGANIZ ATION 12/07/2019 [facility] DATE CREATED AUTHOR AUTHOR'S ORGANIZ ATION 11/07/2022 [facility] DATE CREATED AUTHOR AUTHOR'S ORGANIZ ATION 12/27/2022 [facility] DATE CREATED AUTHOR AUTHOR'S ORGANIZ ATION 06/12/2023 [facility] DATE CREATED AUTHOR AUTHOR'S ORGANIZ ATION 03/05/2025 [facility] DATE CREATED AUTHOR AUTHOR'S ORGANIZ ATION 03/13/2025 [facility] Source Comments (unrecognize d section and content) In the event this informatio n is protected by the Federal Confidentiality of Alcohol and Drug Abuse Patient Records regulations: The Federal rules restrict any use of the information to criminally investigate or prosecute any alcohol or drug abuse patient.[facility] the event this information is protected by the Federal Confidentiality of Alcohol and Drug Abuse Patient Records regulations: The Federal rules restrict any use of the information to criminally investigate or prosecute any alcohol or drug abuse patient.[facility]In the event this information is protected by the Federal Confidentiality of Alcohol and Drug Abuse Patient Records regulations: The Federal rules restrict any use of the information to criminally investigate or prosecute any alcohol or drug abuse patient.[facility]In the event this information is protected by the Federal Confidentiality of Alcohol and Drug Abuse Patient Records regulations: The Federal rules restrict any use of the information to criminally investigate or prosecute any alcohol or drug abuse patient.[facility]In the event this information is protected by the Federal Confidentiality of Alcohol and Drug Abuse Patient Records regulations: The Federal rules restrict any use of the information to criminally investigate or prosecute any alcohol or drug abuse patient.[facility] WestIn the event this information is protected by the Federal Confidentiality of Alcohol and Drug Abuse Patient Records regulations: The Federal rules restrict any use of the information to criminally investigate or prosecute any alcohol or drug abuse patient.[facility] WestIn the event this information is protected by the Federal Confidentiality of Alcohol and Drug Abuse Patient Records regulations: The Federal rules restrict any use of the information to criminally investigate or prosecute any alcohol or drug abuse patient.[facility] WestIn the event this information is protected by the Federal Confidentiality of Alcohol and Drug Abuse Patient Records regulations: The Federal rules restrict any use of the information to criminally investigate or prosecute any alcohol or drug abuse patient.[facility] WestIn the event this information is protected by the Federal Confidentiality of Alcohol and Drug Abuse Patient Records regulations: The Federal rules restrict any use of the information to criminally investigate or prosecute any alcohol or drug abuse patient.[facility] WestIn the event this information is protected by the Federal Confidentiality of Alcohol and Drug Abuse Patient Records regulations: The Federal rules restrict any use of the information to criminally investigate or prosecute any alcohol or drug abuse patient.[facility] WestIn the event this information is protected by the Federal Confidentiality of Alcohol and Drug Abuse Patient Records regulations: The Federal rules restrict any use of the information to criminally investigate or prosecute any alcohol or drug abuse patient.[facility] WestIn the event this information is protected by the Federal Confidentiality of Alcohol and Drug Abuse Patient Records regulations: The Federal rules restrict any use of the information to criminally investigate or prosecute any alcohol or drug abuse patient.[facility] WestIn the event this information is protected by the Federal Confidentiality of Alcohol and Drug Abuse Patient Records regulations: The Federal rules restrict any use of the information to criminally investigate or prosecute any alcohol or drug abuse patient.[facility] WestIn the event this information is protected by the Federal Confidentiality of Alcohol and Drug Abuse Patient Records regulations: The Federal rules restrict any use of the information to criminally investigate or prosecute any alcohol or drug abuse patient.[facility] WestIn the event this information is protected by the Federal Confidentiality of Alcohol and Drug Abuse Patient Records regulations: The Federal rules restrict any use of the information to criminally investigate or prosecute any alcohol or drug abuse patient.[facility] WestIn the event this information is protected by the Federal Confidentiality of Alcohol and Drug Abuse Patient Records regulations: The Federal rules restrict any use of the information to criminally investigate or prosecute any alcohol or drug abuse patient.[facility] WestIn the event this information is protected by the Federal Confidentiality of Alcohol and Drug Abuse Patient Records regulations: The Federal rules restrict any use of the information to criminally investigate or prosecute any alcohol or drug abuse patient.[facility] WestIn the event this information is protected by the Federal Confidentiality of Alcohol and Drug Abuse Patient Records regulations: The Federal rules restrict any use of the information to criminally investigate or prosecute any alcohol or drug abuse patient.[facility] WestIn the event this information is protected by the Federal Confidentiality of Alcohol and Drug Abuse Patient Records regulations: The Federal rules restrict any use of the information to criminally investigate or prosecute any alcohol or drug abuse patient.[facility] WestIn the event this information is protected by the Federal Confidentiality of Alcohol and Drug Abuse Patient Records regulations: The Federal rules restrict any use of the information to criminally investigate or prosecute any alcohol or drug abuse patient.[facility] WestIn the event this information is protected by the Federal Confidentiality of Alcohol and Drug Abuse Patient Records regulations: The Federal rules restrict any use of the information to criminally investigate or prosecute any alcohol or drug abuse patient.[facility] WestIn the event this information is protected by the Federal Confidentiality of Alcohol and Drug Abuse Patient Records regulations: The Federal rules restrict any use of the information to criminally investigate or prosecute any alcohol or drug abuse patient.[facility] WestIn the event this information is protected by the Federal Confidentiality of Alcohol and Drug Abuse Patient Records regulations: The Federal rules restrict any use of the information to criminally investigate or prosecute any alcohol or drug abuse patient.[facility] WestIn the event this information is protected by the Federal Confidentiality of Alcohol and Drug Abuse Patient Records regulations: The Federal rules restrict any use of the information to criminally investigate or prosecute any alcohol or drug abuse patient.[facility] WestIn the event this information is protected by the Federal Confidentiality of Alcohol and Drug Abuse Patient Records regulations: The Federal rules restrict any use of the information to criminally investigate or prosecute any alcohol or drug abuse patient.[facility] WestIn the event this information is protected by the Federal Confidentiality of Alcohol and Drug Abuse Patient Records regulations: The Federal rules restrict any use of the information to criminally investigate or prosecute any alcohol or drug abuse patient.[facility] WestIn the event this information is protected by the Federal Confidentiality of Alcohol and Drug Abuse Patient Records regulations: The Federal rules restrict any use of the information to criminally investigate or prosecute any alcohol or drug abuse patient.[facility] WestIn the event this information is protected by the Federal Confidentiality of Alcohol and Drug Abuse Patient Records regulations: The Federal rules restrict any use of the information to criminally investigate or prosecute any alcohol or drug abuse patient.[facility] WestIn the event this information is protected by the Federal Confidentiality of Alcohol and Drug Abuse Patient Records regulations: The Federal rules restrict any use of the information to criminally investigate or prosecute any alcohol or drug abuse patient.[facility] WestIn the event this information is protected by the Federal Confidentiality of Alcohol and Drug Abuse Patient Records regulations: The Federal rules restrict any use of the information to criminally investigate or prosecute any alcohol or drug abuse patient.[facility] WestIn the event this information is protected by the Federal Confidentiality of Alcohol and Drug Abuse Patient Records regulations: The Federal rules restrict any use of the information to criminally investigate or prosecute any alcohol or drug abuse patient.[facility] WestIn the event this information is protected by the Federal Confidentiality of Alcohol and Drug Abuse Patient Records regulations: The Federal rules restrict any use of the information to criminally investigate or prosecute any alcohol or drug abuse patient.[facility] WestIn the event this information is protected by the Federal Confidentiality of Alcohol and Drug Abuse Patient Records regulations: The Federal rules restrict any use of the information to criminally investigate or prosecute any alcohol or drug abuse patient.[facility] WestIn the event this information is protected by the Federal Confidentiality of Alcohol and Drug Abuse Patient Records regulations: The Federal rules restrict any use of the information to criminally investigate or prosecute any alcohol or drug abuse patient.[facility] WestIn the event this information is protected by the Federal Confidentiality of Alcohol and Drug Abuse Patient Records regulations: The Federal rules restrict any use of the information to criminally investigate or prosecute any alcohol or drug abuse patient.[facility] WestIn the event this information is protected by the Federal Confidentiality of Alcohol and Drug Abuse Patient Records regulations: The Federal rules restrict any use of the information to criminally investigate or prosecute any alcohol or drug abuse patient.[facility] WestIn the event this information is protected by the Federal Confidentiality of Alcohol and Drug Abuse Patient Records regulations: The Federal rules restrict any use of the information to criminally investigate or prosecute any alcohol or drug abuse patient.[facility]In the event this information is protected by the Federal Confidentiality of Alcohol and Drug Abuse Patient Records regulations: The Federal rules restrict any use of the information to criminally investigate or prosecute any alcohol or drug abuse patient.[facility] WestIn the event this information is protected by the Federal Confidentiality of Alcohol and Drug Abuse Patient Records regulations: The Federal rules restrict any use of the information to criminally investigate or prosecute any alcohol or drug abuse patient.[facility] WestIn the event this information is protected by the Federal Confidentiality of Alcohol and Drug Abuse Patient Records regulations: The Federal rules restrict any use of the information to criminally investigate or prosecute any alcohol or drug abuse patient.[facility] WestIn the event this information is protected by the Federal Confidentiality of Alcohol and Drug Abuse Patient Records regulations: The Federal rules restrict any use of the information to criminally investigate or prosecute any alcohol or drug abuse patient.[facility] WestIn the event this information is protected by the Federal Confidentiality of Alcohol and Drug Abuse Patient Records regulations: The Federal rules restrict any use of the information to criminally investigate or prosecute any alcohol or drug abuse patient.[facility] WestIn the event this information is protected by the Federal Confidentiality of Alcohol and Drug Abuse Patient Records regulations: The Federal rules restrict any use of the information to criminally investigate or prosecute any alcohol or drug abuse patient.[facility] WestIn the event this information is protected by the Federal Confidentiality of Alcohol and Drug Abuse Patient Records regulations: The Federal rules restrict any use of the information to criminally investigate or prosecute any alcohol or drug abuse patient.[facility] WestIn the event this information is protected by the Federal Confidentiality of Alcohol and Drug Abuse Patient Records regulations: The Federal rules restrict any use of the information to criminally investigate or prosecute any alcohol or drug abuse patient.[facility] WestIn the event this information is protected by the Federal Confidentiality of Alcohol and Drug Abuse Patient Records regulations: The Federal rules restrict any use of the information to criminally investigate or prosecute any alcohol or drug abuse patient.[facility] WestIn the event this information is protected by the Federal Confidentiality of Alcohol and Drug Abuse Patient Records regulations: The Federal rules restrict any use of the information to criminally investigate or prosecute any alcohol or drug abuse patient.[facility] WestIn the event this information is protected by the Federal Confidentiality of Alcohol and Drug Abuse Patient Records regulations: The Federal rules restrict any use of the information to criminally investigate or prosecute any alcohol or drug abuse patient.[facility] WestIn the event this information is protected by the Federal Confidentiality of Alcohol and Drug Abuse Patient Records regulations: The Federal rules restrict any use of the information to criminally investigate or prosecute any alcohol or drug abuse patient.[facility] WestIn the event this information is protected by the Federal Confidentiality of Alcohol and Drug Abuse Patient Records regulations: The Federal rules restrict any use of the information to criminally investigate or prosecute any alcohol or drug abuse patient.[facility] WestIn the event this information is protected by the Federal Confidentiality of Alcohol and Drug Abuse Patient Records regulations: The Federal rules restrict any use of the information to criminally investigate or prosecute any alcohol or drug abuse patient.[facility] WestIn the event this information is protected by the Federal Confidentiality of Alcohol and Drug Abuse Patient Records regulations: The Federal rules restrict any use of the information to criminally investigate or prosecute any alcohol or drug abuse patient.[facility] WestIn the event this information is protected by the Federal Confidentiality of Alcohol and Drug Abuse Patient Records regulations: The Federal rules restrict any use of the information to criminally investigate or prosecute any alcohol or drug abuse patient.[facility] WestIn the event this information is protected by the Federal Confidentiality of Alcohol and Drug Abuse Patient Records regulations: The Federal rules restrict any use of the information to criminally investigate or prosecute any alcohol or drug abuse patient.[facility] WestIn the event this information is protected by the Federal Confidentiality of Alcohol and Drug Abuse Patient Records regulations: The Federal rules restrict any use of the information to criminally investigate or prosecute any alcohol or drug abuse patient.[facility] WestIn the event this information is protected by the Federal Confidentiality of Alcohol and Drug Abuse Patient Records regulations: The Federal rules restrict any use of the information to criminally investigate or prosecute any alcohol or drug abuse patient.[facility] WestIn the event this information is protected by the Federal Confidentiality of Alcohol and Drug Abuse Patient Records regulations: The Federal rules restrict any use of the information to criminally investigate or prosecute any alcohol or drug abuse patient.[facility] WestIn the event this information is protected by the Federal Confidentiality of Alcohol and Drug Abuse Patient Records regulations: The Federal rules restrict any use of the information to criminally investigate or prosecute any alcohol or drug abuse patient.[facility] WestIn the event this information is protected by the Federal Confidentiality of Alcohol and Drug Abuse Patient Records regulations: The Federal rules restrict any use of the information to criminally investigate or prosecute any alcohol or drug abuse patient.[facility] WestIn the event this information is protected by the Federal Confidentiality of Alcohol and Drug Abuse Patient Records regulations: The Federal rules restrict any use of the information to criminally investigate or prosecute any alcohol or drug abuse patient.[facility] WestIn the event this information is protected by the Federal Confidentiality of Alcohol and Drug Abuse Patient Records regulations: The Federal rules restrict any use of the information to criminally investigate or prosecute any alcohol or drug abuse patient.[facility] WestIn the event this information is protected by the Federal Confidentiality of Alcohol and Drug Abuse Patient Records regulations: The Federal rules restrict any use of the information to criminally investigate or prosecute any alcohol or drug abuse patient.[facility] WestIn the event this information is protected by the Federal Confidentiality of Alcohol and Drug Abuse Patient Records regulations: The Federal rules restrict any use of the information to criminally investigate or prosecute any alcohol or drug abuse patient.[facility] WestIn the event this information is protected by the Federal Confidentiality of Alcohol and Drug Abuse Patient Records regulations: The Federal rules restrict any use of the information to criminally investigate or prosecute any alcohol or drug abuse patient.[facility] WestIn the event this information is protected by the Federal Confidentiality of Alcohol and Drug Abuse Patient Records regulations: The Federal rules restrict any use of the information to criminally investigate or prosecute any alcohol or drug abuse patient.[facility] WestIn the event this information is protected by the Federal Confidentiality of Alcohol and Drug Abuse Patient Records regulations: The Federal rules restrict any use of the information to criminally investigate or prosecute any alcohol or drug abuse patient.[facility] WestIn the event this information is protected by the Federal Confidentiality of Alcohol and Drug Abuse Patient Records regulations: The Federal rules restrict any use of the information to criminally investigate or prosecute any alcohol or drug abuse patient.[facility] WestIn the event this information is protected by the Federal Confidentiality of Alcohol and Drug Abuse Patient Records regulations: The Federal rules restrict any use of the information to criminally investigate or prosecute any alcohol or drug abuse patient.[facility] WestIn the event this information is protected by the Federal Confidentiality of Alcohol and Drug Abuse Patient Records regulations: The Federal rules restrict any use of the information to criminally investigate or prosecute any alcohol or drug abuse patient.[facility] WestIn the event this information is protected by the Federal Confidentiality of Alcohol and Drug Abuse Patient Records regulations: The Federal rules restrict any use of the information to criminally investigate or prosecute any alcohol or drug abuse patient.[facility] WestIn the event this information is protected by the Federal Confidentiality of Alcohol and Drug Abuse Patient Records regulations: The Federal rules restrict any use of the information to criminally investigate or prosecute any alcohol or drug abuse patient.[facility] WestIn the event this information is protected by the Federal Confidentiality of Alcohol and Drug Abuse Patient Records regulations: The Federal rules restrict any use of the information to criminally investigate or prosecute any alcohol or drug abuse patient.[facility] WestIn the event this information is protected by the Federal Confidentiality of Alcohol and Drug Abuse Patient Records regulations: The Federal rules restrict any use of the information to criminally investigate or prosecute any alcohol or drug abuse patient.[facility] WestIn the event this information is protected by the Federal Confidentiality of Alcohol and Drug Abuse Patient Records regulations: The Federal rules restrict any use of the information to criminally investigate or prosecute any alcohol or drug abuse patient.[facility] WestIn the event this information is protected by the Federal Confidentiality of Alcohol and Drug Abuse Patient Records regulations: The Federal rules restrict any use of the information to criminally investigate or prosecute any alcohol or drug abuse patient.[facility] WestIn the event this information is protected by the Federal Confidentiality of Alcohol and Drug Abuse Patient Records regulations: The Federal rules restrict any use of the information to criminally investigate or prosecute any alcohol or drug abuse patient.[facility] WestIn the event this information is protected by the Federal Confidentiality of Alcohol and Drug Abuse Patient Records regulations: The Federal rules restrict any use of the information to criminally investigate or prosecute any alcohol or drug abuse patient.[facility] WestIn the event this information is protected by the Federal Confidentiality of Alcohol and Drug Abuse Patient Records regulations: The Federal rules restrict any use of the information to criminally investigate or prosecute any alcohol or drug abuse patient.[facility] WestIn the event this information is protected by the Federal Confidentiality of Alcohol and Drug Abuse Patient Records regulations: The Federal rules restrict any use of the information to criminally investigate or prosecute any alcohol or drug abuse patient.[facility] WestIn the event this information is protected by the Federal Confidentiality of Alcohol and Drug Abuse Patient Records regulations: The Federal rules restrict any use of the information to criminally investigate or prosecute any alcohol or drug abuse patient.[facility] WestIn the event this information is protected by the Federal Confidentiality of Alcohol and Drug Abuse Patient Records regulations: The Federal rules restrict any use of the information to criminally investigate or prosecute any alcohol or drug abuse patient.[facility] WestIn the event this information is protected by the Federal Confidentiality of Alcohol and Drug Abuse Patient Records regulations: The Federal rules restrict any use of the information to criminally investigate or prosecute any alcohol or drug abuse patient.[facility] WestIn the event this information is protected by the Federal Confidentiality of Alcohol and Drug Abuse Patient Records regulations: The Federal rules restrict any use of the information to criminally investigate or prosecute any alcohol or drug abuse patient.[facility] WestIn the event this information is protected by the Federal Confidentiality of Alcohol and Drug Abuse Patient Records regulations: The Federal rules restrict any use of the information to criminally investigate or prosecute any alcohol or drug abuse patient.[facility] WestIn the event this information is protected by the Federal Confidentiality of Alcohol and Drug Abuse Patient Records regulations: The Federal rules restrict any use of the information to criminally investigate or prosecute any alcohol or drug abuse patient.[facility] WestIn the event this information is protected by the Federal Confidentiality of Alcohol and Drug Abuse Patient Records regulations: The Federal rules restrict any use of the information to criminally investigate or prosecute any alcohol or drug abuse patient.[facility] WestIn the event this information is protected by the Federal Confidentiality of Alcohol and Drug Abuse Patient Records regulations: The Federal rules restrict any use of the information to criminally investigate or prosecute any alcohol or drug abuse patient.[facility]In the event this information is protected by the Federal Confidentiality of Alcohol and Drug Abuse Patient Records regulations: The Federal rules restrict any use of the information to criminally investigate or prosecute any alcohol or drug abuse patient.[facility] WestIn the event this information is protected by the Federal Confidentiality of Alcohol and Drug Abuse Patient Records regulations: The Federal rules restrict any use of the information to criminally investigate or prosecute any alcohol or drug abuse patient.[facility] WestIn the event this information is protected by the Federal Confidentiality of Alcohol and Drug Abuse Patient Records regulations: The Federal rules restrict any use of the information to criminally investigate or prosecute any alcohol or drug abuse patient.[facility] WestIn the event this information is protected by the Federal Confidentiality of Alcohol and Drug Abuse Patient Records regulations: The Federal rules restrict any use of the information to criminally investigate or prosecute any alcohol or drug abuse patient.[facility]In the event this information is protected by the Federal Confidentiality of Alcohol and Drug Abuse Patient Records regulations: The Federal rules restrict any use of the information to criminally investigate or prosecute any alcohol or drug abuse patient.[facility] WestIn the event this information is protected by the Federal Confidentiality of Alcohol and Drug Abuse Patient Records regulations: The Federal rules restrict any use of the information to criminally investigate or prosecute any alcohol or drug abuse patient.[facility] WestIn the event this information is protected by the Federal Confidentiality of Alcohol and Drug Abuse Patient Records regulations: The Federal rules restrict any use of the information to criminally investigate or prosecute any alcohol or drug abuse patient.[facility] WestIn the event this information is protected by the Federal Confidentiality of Alcohol and Drug Abuse Patient Records regulations: The Federal rules restrict any use of the information to criminally investigate or prosecute any alcohol or drug abuse patient.[facility] WestIn the event this information is protected by the Federal Confidentiality of Alcohol and Drug Abuse Patient Records regulations: The Federal rules restrict any use of the information to criminally investigate or prosecute any alcohol or drug abuse patient.[facility]In the event this information is protected by the Federal Confidentiality of Alcohol and Drug Abuse Patient Records regulations: The Federal rules restrict any use of the information to criminally investigate or prosecute any alcohol or drug abuse patient.[facility]In the event this information is protected by the Federal Confidentiality of Alcohol and Drug Abuse Patient Records regulations: The Federal rules restrict any use of the information to criminally investigate or prosecute any alcohol or drug abuse patient.[facility]In the event this information is protected by the Federal Confidentiality of Alcohol and Drug Abuse Patient Records regulations: The Federal rules restrict any use of the information to criminally investigate or prosecute any alcohol or drug abuse patient.[facility] WestIn the event this information is protected by the Federal Confidentiality of Alcohol and Drug Abuse Patient Records regulations: The Federal rules restrict any use of the information to criminally investigate or prosecute any alcohol or drug abuse patient.[facility] WestIn the event this information is protected by the Federal Confidentiality of Alcohol and Drug Abuse Patient Records regulations: The Federal rules restrict any use of the information to criminally investigate or prosecute any alcohol or drug abuse patient.[facility] WestIn the event this information is protected by the Federal Confidentiality of Alcohol and Drug Abuse Patient Records regulations: The Federal rules restrict any use of the information to criminally investigate or prosecute any alcohol or drug abuse patient.[facility] WestIn the event this information is protected by the Federal Confidentiality of Alcohol and Drug Abuse Patient Records regulations: The Federal rules restrict any use of the information to criminally investigate or prosecute any alcohol or drug abuse patient.[facility] WestIn the event this information is protected by the Federal Confidentiality of Alcohol and Drug Abuse Patient Records regulations: The Federal rules restrict any use of the information to criminally investigate or prosecute any alcohol or drug abuse patient.[facility] WestIn the event this information is protected by the Federal Confidentiality of Alcohol and Drug Abuse Patient Records regulations: The Federal rules restrict any use of the information to criminally investigate or prosecute any alcohol or drug abuse patient.[facility] WestIn the event this information is protected by the Federal Confidentiality of Alcohol and Drug Abuse Patient Records regulations: The Federal rules restrict any use of the information to criminally investigate or prosecute any alcohol or drug abuse patient.[facility] WestIn the event this information is protected by the Federal Confidentiality of Alcohol and Drug Abuse Patient Records regulations: The Federal rules restrict any use of the information to criminally investigate or prosecute any alcohol or drug abuse patient.[facility] WestIn the event this information is protected by the Federal Confidentiality of Alcohol and Drug Abuse Patient Records regulations: The Federal rules restrict any use of the information to criminally investigate or prosecute any alcohol or drug abuse patient.[facility] WestIn the event this information is protected by the Federal Confidentiality of Alcohol and Drug Abuse Patient Records regulations: The Federal rules restrict any use of the information to criminally investigate or prosecute any alcohol or drug abuse patient.[facility] WestIn the event this information is protected by the Federal Confidentiality of Alcohol and Drug Abuse Patient Records regulations: The Federal rules restrict any use of the information to criminally investigate or prosecute any alcohol or drug abuse patient.[facility] WestIn the event this information is protected by the Federal Confidentiality of Alcohol and Drug Abuse Patient Records regulations: The Federal rules restrict any use of the information to criminally investigate or prosecute any alcohol or drug abuse patient.[facility] WestIn the event this information is protected by the Federal Confidentiality of Alcohol and Drug Abuse Patient Records regulations: The Federal rules restrict any use of the information to criminally investigate or prosecute any alcohol or drug abuse patient.[facility] WestIn the event this information is protected by the Federal Confidentiality of Alcohol and Drug Abuse Patient Records regulations: The Federal rules restrict any use of the information to criminally investigate or prosecute any alcohol or drug abuse patient.[facility] WestIn the event this information is protected by the Federal Confidentiality of Alcohol and Drug Abuse Patient Records regulations: The Federal rules restrict any use of the information to criminally investigate or prosecute any alcohol or drug abuse patient.[facility] WestIn the event this information is protected by the Federal Confidentiality of Alcohol and Drug Abuse Patient Records regulations: The Federal rules restrict any use of the information to criminally investigate or prosecute any alcohol or drug abuse patient.[facility] WestIn the event this information is protected by the Federal Confidentiality of Alcohol and Drug Abuse Patient Records regulations: The Federal rules restrict any use of the information to criminally investigate or prosecute any alcohol or drug abuse patient.[facility] Reason for Visit (unrecogniz ed section and content) Reason Comments cellulitis OD Specialty Diagnoses / Procedures Referred By Travis melendez Referred To Contact Emergency Medicine Diagnoses Orbital cellulitis on right [facility] [place] [address] Phone: [phone] [employer] [place] [address] Phone: [phone] Referral ID Status Reason Start Date Expiration Date Visits Re quested Visits Authorized [id number] 3 Reason Comments Refill Request Reason Comments Vaginal Problem Reason Onset Date Comments Refill Request 03/21/2022 Reason Comments Yearly Exam Annual Exam Reason Comments Medication Question Reason Comments Opened In Error Reason Comments Radiology US Specialty Diagnoses / Procedures Referred By Travis melendez Referred To Contact US IMAGING Diagnoses 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 chronic pancreatitis (HCC) Alcoholic hepatitis without ascites Procedures US ABD RT UPPER QUADRANT US ABDOMINAL REAL TIME W/IMAGE LIMITED Soila Easton APRN.[employer] [address] [place] [address] Us Imaging Referral ID Status Reason Start Date Expiration Date V isits Requested Visits Authorized [id number] Closed Auto-Generate d Referral 04/17/2022 05/17/2023 1 1 Reason Onset Date Comments Refill Request 05/22/2022 Reason Comments Alcohol induced chronic pancreatitis Alc oholic hepatitis w/o ascites Specialty Diagnoses / Procedures Referred By Contac t Referred To Contact Gastroenterology Diagnoses 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 chronic pancreatitis (HCC) Alcoholic hepatitis without ascites Procedures CONSULT TO GASTROENTEROLOGY OFFICE/OUTPATIENT NEW HIGH MDM 60-74 MINUTES Soila Easton APRN.CNP [address] [place] [address] Referral ID Status Reason Start Date Expiration Date V isits Requested Visits Authorized [id number] Closed PCP Requested Referral 04/17/2022 04/17/2023 1 1 Reason Onset Date Comments Refill Request 06/13/2022 Reason Onset Date Comments Recheck 3 month follow u p Immunizations 07/18/2022 Flu vaccination Reason Comments Recheck [facility] ER follow up, SO B, fevers in evenings Reason Onset Date Comments Speak to Provider 10/23/2022 Reason Comments Hospital F/U RSV d/c'd 10/30/21 Reason Comments Results Reason Comments Same Day Appointment tingling and numbne ss in legs and back and abdomen Reason Comments New Patient Specialty Diagnoses / Procedures Referred By Contac t Referred To Contact Neurology Diagnoses Numbness and tingling of both lower extremities Procedures CONSULT TO NEUROLOGY OFFICE/OUTPATIENT [facility] [facility] MDM 60-74 MINUTES Annmarie Elkins MD [address] [place] [address] Referral ID Status Reason Start Date Expiration Date V isits Requested Visits Authorized [id number] Closed PCP Requested Referral 11/25/2022 11/25/2023 1 1 Reason Comments Patient Update Reason Comments Erroneous encounter-disregard Reason Comments Hospital F/U follow up from [facility] and , right eye cellulitis mass behind eye and mass found in lungs per patient Reason Comments Recheck Follow up, discuss l abs Reason Comments Medication Request Reason Onset Date Comments Refill Request 03/24/2023 Reason Comments Right ear pain Reason Onset Date Comments Refill Request 05/18/2023 Reason Onset Date Comments Refill Request 06/12/2023 Reason Comments Patient Question Reason Onset Date Comments Refill Request 11/02/2023 Reason Comments Medication Follow-up Reason Onset Date Comments Transition Of Care 01/06/2024 Reason Comments Hospital F/U Reason Onset Date Comments Refill Request 01/18/2024 Reason Onset Date Comments Refill Request 01/22/2024 Reason Comments ER follow up Reason Onset Date Comments Refill Request 02/19/2024 Reason Onset Date Comments Refill Request 02/26/2024 Reason Onset Date Comments Refill Request 03/14/2024 Reason Onset Date Comments Refill Request 03/18/2024 Reason Onset Date Comments Refill Request 03/23/2024 Opened In Error 03/23/2024 Reason Onset Date Comments Refill Request 04/15/2024 Reason Onset Date Comments Refill Request 05/13/2024 Reason Comments medication check Reason Onset Date Comments Refill Request 06/15/2024 Reason Comments No Show Reason Onset Date Comments Refill Request 07/08/2024 Reason Comments Recheck Reason Comments Results Urinary Problem Reason Comments Urge Urinary Incontinence Urinary concer ns Reason Comments Recheck Follow up SOB Reason Onset Date Comments Refill Request 08/16/2024 Reason Comments medication issue Reason Comments Radiology CT Specialty Diagnoses / Procedures Referred By Contac t Referred To Contact CT IMAGING Diagnoses Alcoholic hepatitis without ascites Acute pancreatitis, unspecified complication status, unspecified pancreatitis type Upper abdominal pain Nausea Elevated lipase Generalized abdominal tenderness without rebound tenderness Procedures CT ABD/PEL W IVCON CT ABD & PELVIS W/CONTRAST Soila Easton, COSMETIC CONSULTANT.DAYTIME CAREGIVER [address] [place] [address] [place] [address] Referral ID Status Reason Start Date Expiration Date V isits Requested Visits Authorized [id number] Closed Auto-Generate d Referral 08/15/2024 10/14/2024 1 1 Specialty Diagnoses / Procedures Referred By Contac t Referred To Contact CT IMAGING Diagnoses Alcoholic hepatitis without ascites Acute pancreatitis, unspecified complication status, unspecified pancreatitis type Upper abdominal pain Nausea Elevated lipase Generalized abdominal tenderness without rebound tenderness Procedures CT ABD/PEL W IVCON CT ABD & PELVIS W/CONTRAST Rustam, Soila, COSMETIC CONSULTANT.DAYTIME CAREGIVER [address] [place] [address] [place] [address] Reason Onset Date Comments Refill Request 10/28/2024 Reason Comments New Patient Chronic recurrent pa ncreatitis (HCC) [K86.1]; 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] Specialty Diagnoses / Procedures Referred By Travis melendez Referred To Contact Gastroenterology Diagnoses Chronic recurrent pancreatitis (HCC) 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 chronic pancreatitis (HCC) Procedures CONSULT TO GASTROENTEROLOGY OFFICE/OUTPATIENT NEW HIGH MDM 60 MINUTES Older, UNA Romero.DAYTIME CAREGIVER [address] [place] [address] Referral ID Status Reason Start Date Expiration Date V isits Requested Visits Authorized [id number] Closed PCP Requested Referral 09/02/2024 09/02/2025 1 1 Reason Comments F/U 3 Month Reason Comments Medication Problem Reason Onset Date Comments Refill Request 11/21/2024 Reason Comments Medication Problem Medication for EGD Reason Comments Endoscopy Call Reason Comments hospital f/up Reason Comments Reminder Call Missed call Reason Comments Patient Update Pain Reason Comments Patient Request Reason Comments Order for Pull Ups Reason Comments Recheck Follow up Reason Onset Date Comments Refill Request 12/31/2024 Reason Onset Date Comments Refill Request 01/24/2025 Reason Onset Date Comments Refill Request 02/03/2025 Reason Comments Medical Clearance Reason Comments 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 Annmarie Elkins MD Primary Care Provider Active Team Status: Inactive Member Role Status Dates Dr. Annmarie Elkins MD Primary Care Provider Active Start: November 24, 2024 End: November 24, 2024 Ani Eduardo WARNING COORDINATION METEOROLOGIST, WARNING COORDINATION METEOROLOGIST-C Attending Provider Active Start: November 24, 2024 End: November 24, 2024 Ani Eduardo WARNING COORDINATION METEOROLOGIST, WARNING COORDINATION METEOROLOGIST-C Referring Provider Active Start: November 24, 2024 End: November 24, 2024 Team Status: Active Member Role Status Dates Dr. Annmarie Elkins MD Primary Care Provider Active Start: December 04, 2024 Dr. Franco Inman MD Emergency Provider Active S tart: December 04, 2024 Dr. Aleta Aguayo , Admit Provider Active Start : December 04, 2024 Dr. Aleta Aguayo , Other Provider Active Start : December 04, 2024 Dr. Yrn Kahn DO Attending Provider Active Start: December 04, 2024 Dr. Elton Abraham MD Other Provider Active Start: December 04, 2024 Dr. Ryan Ortega MD Other Provider Active Start: December 04, 2024 Dr. Freddie Perdue MD Other Provider Active Star t: December 04, 2024 Dr. Gonzalo Sebastian DO Other Provider Active Start : December 04, 2024 Dr. Jackson Britt MD Other Provider Active Sta rt: December 04, 2024 Dr. Jacky Perez MD Other Provider Active St art: December 04, 2024 Dr. Cricket Hoover MD Other Provider Active S tart: December 04, 2024 Dr. Rajni Avalos MD Other Provider Active Start: December 04, 2024 Dr. Kahlil Jeff MD Other Provider Active Start : December 04, 2024 Dr. Warren Anguiano MD Other Provider Active Start: December 04, 2024 Dr. Jaime Rey MD Other Provider Active Start : December 04, 2024 Dr. Maria Antonia Salinas MD Other Provider Active Star t: December 04, 2024 Dr. Michael Mistry MD Other Provider Active Sta rt: December 04, 2024 Dr. Sylvia Hurt MD Other Provider Active Sta rt: December 04, 2024 Dr. Jhony Arango MD Other Provider Active Star t: December 04, 2024 Dr. Alex Montesinos MD Other Provider Active St art: December 04, 2024 Dr. Franki Jackson MD Other Provider Active Star t: December 04, 2024 Dr. Hever Marrufo DO Other Provider Active St art: December 04, 2024 Dr. Gonzalo Cruz MD Other Provider Active Start: December 04, 2024 Dr. Nenita Armando MD Other Provider Active St art: December 04, 2024 Dr. Aris Black DO Other Provider Active Start: December 04, 2024 Dr. Estevan Govea MD Other Provider Active Star t: December 04, 2024 Dr. Demarco Cervantes MD Other Provider Active Sta rt: December 04, 2024 Team Status: Active Member Role Status Dates Dr. Annmarie Elkins MD Primary Care Provider Active Start: December 04, 2024 Dr. Franco Inman MD Emergency Provider Active S tart: December 04, 2024 Dr. Aleta Aguayo , Admit Provider Active Start : December 04, 2024 Dr. Aleta Aguayo DO Attending Provider Active S tart: December 04, 2024 Dr. Aleta Aguayo DO Other Provider Active Start : December 04, 2024 Team Status: Active Member Role Status Dates Dr. Annmarie Elkins MD Primary Care Provider Active Start: December 05, 2024 Dr. Franco Inman MD Emergency Provider Active S tart: December 05, 2024 Dr. Aleta Aguayo DO Admit Provider Active Start : December 05, 2024 Dr. Aleta Aguayo DO Other Provider Active Start : December 05, 2024 Dr. Yrn Kahn DO Other Provider Active S tart: December 05, 2024 Dr. Elton Abraham MD Other Provider Active Start: December 05, 2024 Dr. Ryan Ortega MD Other Provider Active Start: December 05, 2024 Dr. Freddie Perdue MD Other Provider Active Star t: December 05, 2024 Dr. Gonzalo Sebastian DO Attending Provider Active S tart: December 05, 2024 Dr. Gonzalo Sebastian DO Other Provider Active Start : December 05, 2024 Dr. Jackson Britt MD Other Provider Active Sta rt: December 05, 2024 Dr. Jacky Perez MD Other Provider Active St art: December 05, 2024 Dr. Cricket Hoover MD Other Provider Active S tart: December 05, 2024 Dr. Rajni Avalos MD Other Provider Active Start: December 05, 2024 Dr. Kahlil Jeff MD Other Provider Active Start : December 05, 2024 Dr. Warren Anguiano MD Other Provider Active Start: December 05, 2024 Dr. Jaime Rey MD Other Provider Active Start : December 05, 2024 Dr. Maria Antonia Salinas MD Other Provider Active Star t: December 05, 2024 Dr. Michael Mistry MD Other Provider Active Sta rt: December 05, 2024 Dr. Sylvia Hurt MD Other Provider Active Sta rt: December 05, 2024 Dr. Jhony Arango MD Other Provider Active Star t: December 05, 2024 Dr. Alex Montesinos MD Other Provider Active St art: December 05, 2024 Dr. Franki Jackson MD Other Provider Active Star t: December 05, 2024 Dr. Hever Marrufo , Other Provider Active St art: December 05, 2024 Dr. Gonzalo Cruz MD Other Provider Active Start: December 05, 2024 Dr. Nenita Armando MD Other Provider Active St art: December 05, 2024 Dr. Aris Black , Other Provider Active Start: December 05, 2024 Dr. Estevan Govea MD Other Provider Active Star t: December 05, 2024 Dr. Demarco Cervantes MD Other Provider Active Sta rt: December 05, 2024 Team Status: Active Member Role Status Dates Dr. Annmarie Elkins MD Primary Care Provider Active Start: December 05, 2024 Dr. Bridgette Gaxiola MD Attending Provider Activ e Start: December 05, 2024 Team Status: Active Member Role Status Dates Dr. Annmarie Elkins MD Primary Care Provider Active Start: December 05, 2024 Dr. Franco Inman MD Emergency Provider Active S tart: December 05, 2024 Dr. Aleta Aguayo DO Admit Provider Active Start : December 05, 2024 Dr. Aleta Aguayo DO Other Provider Active Start : December 05, 2024 Dr. Yrn Kahn DO Attending Provider Active Start: December 05, 2024 Dr. Yrn Kahn DO Other Provider Active S tart: December 05, 2024 Dr. Elton Abraham MD Other Provider Active Start: December 05, 2024 Dr. Ryan Ortega MD Other Provider Active Start: December 05, 2024 Dr. Freddie Perdue MD Other Provider Active Star t: December 05, 2024 Dr. Gonzalo Sebastian DO Other Provider Active Start : December 05, 2024 Dr. Jackson Britt MD Other Provider Active Sta rt: December 05, 2024 Dr. Jacky Perez MD Other Provider Active St art: December 05, 2024 Dr. Cricket Hoover MD Other Provider Active S tart: December 05, 2024 Dr. Rajni Avalos MD Other Provider Active Start: December 05, 2024 Dr. Kahlil Jeff MD Other Provider Active Start : December 05, 2024 Dr. Warren Anguiano MD Other Provider Active Start: December 05, 2024 Dr. Jaime Rey MD Other Provider Active Start : December 05, 2024 Dr. Maria Antonia Salinas MD Other Provider Active Star t: December 05, 2024 Dr. Michael Mistry MD Other Provider Active Sta rt: December 05, 2024 Dr. Sylvia Hurt MD Other Provider Active Sta rt: December 05, 2024 Dr. Jhony Arango MD Other Provider Active Star t: December 05, 2024 Dr. Alex Montesinos MD Other Provider Active St art: December 05, 2024 Dr. Franki Jackson MD Other Provider Active Star t: December 05, 2024 Dr. Hever Marrufo DO Other Provider Active St art: December 05, 2024 Dr. Gonzalo Cruz MD Other Provider Active Start: December 05, 2024 Dr. Nenita Armando MD Other Provider Active St art: December 05, 2024 Dr. Aris Black DO Other Provider Active Start: December 05, 2024 Dr. Estevan Govea MD Other Provider Active Star t: December 05, 2024 Dr. Demarco Cervantes MD Other Provider Active Sta rt: December 05, 2024 Team Status: Active Member Role Status Dates Dr. Annmarie Elkins MD Primary Care Provider Active Start: December 06, 2024 Dr. Franco Inman MD Emergency Provider Active S tart: December 06, 2024 Dr. Aleta Aguayo DO Admit Provider Active Start : December 06, 2024 Dr. Aleta Aguayo DO Other Provider Active Start : December 06, 2024 Dr. Yrn Kahn DO Other Provider Active S tart: December 06, 2024 Dr. Elton Abraham MD Other Provider Active Start: December 06, 2024 Dr. Ryan Ortega MD Other Provider Active Start: December 06, 2024 Dr. Freddie Perdue MD Other Provider Active Star t: December 06, 2024 Dr. Gonzalo Sebastian DO Attending Provider Active S tart: December 06, 2024 Dr. Gonzalo Sebastian DO Other Provider Active Start : December 06, 2024 Dr. Jackson Britt MD Other Provider Active Sta rt: December 06, 2024 Dr. Jacky Perez MD Other Provider Active St art: December 06, 2024 Dr. Cricket Hoover MD Other Provider Active S tart: December 06, 2024 Dr. Rajni Avalos MD Other Provider Active Start: December 06, 2024 Dr. Kahlil Jeff MD Other Provider Active Start : December 06, 2024 Dr. Warren Anguiano MD Other Provider Active Start: December 06, 2024 Dr. Jaime Rey MD Other Provider Active Start : December 06, 2024 Dr. Maria Antonia Salinas MD Other Provider Active Star t: December 06, 2024 Dr. Michael Mistry MD Other Provider Active Sta rt: December 06, 2024 Dr. Sylvia Hurt MD Other Provider Active Sta rt: December 06, 2024 Dr. Jhony Arango MD Other Provider Active Star t: December 06, 2024 Dr. Alex Montesinos MD Other Provider Active St art: December 06, 2024 Dr. Franki Jackson MD Other Provider Active Star t: December 06, 2024 Dr. Hever Marrufo DO Other Provider Active St art: December 06, 2024 Dr. Gonzalo Cruz MD Other Provider Active Start: December 06, 2024 Dr. Nenita Armando MD Other Provider Active St art: December 06, 2024 Dr. Aris Black DO Other Provider Active Start: December 06, 2024 Dr. Estevan Govea MD Other Provider Active Star t: December 06, 2024 Dr. Demarco Cervantes MD Other Provider Active Sta rt: December 06, 2024 Team Status: Active Member Role Status Dates Dr. Annmarie Elkins MD Primary Care Provider Active Start: December 06, 2024 Dr. Franco Inman MD Emergency Provider Active S tart: December 06, 2024 Dr. Aleta Aguayo DO Admit Provider Active Start : December 06, 2024 Dr. Aleta Aguayo DO Other Provider Active Start : December 06, 2024 Dr. Yrn Kahn DO Attending Provider Active Start: December 06, 2024 Dr. Yrn Kahn DO Other Provider Active S tart: December 06, 2024 Dr. Elton Abraham MD Other Provider Active Start: December 06, 2024 Dr. Ryan Ortega MD Other Provider Active Start: December 06, 2024 Dr. Freddie Perdue MD Other Provider Active Star t: December 06, 2024 Dr. Gonzalo Sebastian DO Other Provider Active Start : December 06, 2024 Dr. Jackson Britt MD Other Provider Active Sta rt: December 06, 2024 Dr. Jacky Perez MD Other Provider Active St art: December 06, 2024 Dr. Cricket Hoover MD Other Provider Active S tart: December 06, 2024 Dr. Rajni Aavlos MD Other Provider Active Start: December 06, 2024 Dr. Kahlil Jeff MD Other Provider Active Start : December 06, 2024 Dr. Warren Anguiano MD Other Provider Active Start: December 06, 2024 Dr. Jaime Rey MD Other Provider Active Start : December 06, 2024 Dr. Maria Antonia Salinas MD Other Provider Active Star t: December 06, 2024 Dr. Michael Mistry MD Other Provider Active Sta rt: December 06, 2024 Dr. Sylvia Hurt MD Other Provider Active Sta rt: December 06, 2024 Dr. Jhony Arango MD Other Provider Active Star t: December 06, 2024 Dr. Alex Montesinos MD Other Provider Active St art: December 06, 2024 Dr. Franki Jackson MD Other Provider Active Star t: December 06, 2024 Dr. Hever Marrufo DO Other Provider Active St art: December 06, 2024 Dr. Gonzalo Cruz MD Other Provider Active Start: December 06, 2024 Dr. Nenita Armando MD Other Provider Active St art: December 06, 2024 Dr. Aris Black DO Other Provider Active Start: December 06, 2024 Dr. Estevan Govea MD Other Provider Active Star t: December 06, 2024 Dr. Demarco Cervantes MD Other Provider Active Sta rt: December 06, 2024 Team Status: Active Member Role Status Dates Dr. Annmarie Elkins MD Primary Care Provider Active Start: December 07, 2024 Dr. Franco Inman MD Emergency Provider Active S tart: December 07, 2024 Dr. Aleta Olivier , DO Admit Provider Active Start : December 07, 2024 Dr. Aleta Aguayo DO Other Provider Active Start : December 07, 2024 Dr. Yrn Kahn , Other Provider Active S tart: December 07, 2024 Dr. Elton Abraham MD Other Provider Active Start: December 07, 2024 Dr. Ryan Ortega MD Other Provider Active Start: December 07, 2024 Dr. Freddie Perdue MD Other Provider Active Star t: December 07, 2024 Dr. Gonzalo Sebastian , Attending Provider Active S tart: December 07, 2024 Dr. Gonzalo Sebastian DO Other Provider Active Start : December 07, 2024 Dr. Jackson Britt MD Other Provider Active Sta rt: December 07, 2024 Dr. Jacky Perez MD Other Provider Active St art: December 07, 2024 Dr. Cricket Hoover MD Other Provider Active S tart: December 07, 2024 Dr. Rajni Avalos MD Other Provider Active Start: December 07, 2024 Dr. Kahlil Jeff MD Other Provider Active Start : December 07, 2024 Dr. Warren Anguiano MD Other Provider Active Start: December 07, 2024 Dr. Jaime Rey MD Other Provider Active Start : December 07, 2024 Dr. Maria Antonia Salinas MD Other Provider Active Star t: December 07, 2024 Dr. Michael Mistry MD Other Provider Active Sta rt: December 07, 2024 Dr. Sylvia Hurt MD Other Provider Active Sta rt: December 07, 2024 Dr. Jhony Arango MD Other Provider Active Star t: December 07, 2024 Dr. Alex Montesinos MD Other Provider Active St art: December 07, 2024 Dr. Franki Jackson MD Other Provider Active Star t: December 07, 2024 Dr. Hever Marrufo DO Other Provider Active St art: December 07, 2024 Dr. Gonzalo Cruz MD Other Provider Active Start: December 07, 2024 Dr. Nenita Armando MD Other Provider Active St art: December 07, 2024 Dr. Aris Black DO Other Provider Active Start: December 07, 2024 Dr. Estevan Govea MD Other Provider Active Star t: December 07, 2024 Dr. Demarco Cervantes MD Other Provider Active Sta rt: December 07, 2024 Team Status: Active Member Role Status Dates Dr. Annmarie Elkins MD Primary Care Provider Active Start: December 07, 2024 Dr. Franco Inman MD Emergency Provider Active S tart: December 07, 2024 Dr. Aleta Aguayo DO Admit Provider Active Start : December 07, 2024 Dr. Aleta Aguayo DO Other Provider Active Start : December 07, 2024 Dr. Yrn Kahn DO Attending Provider Active Start: December 07, 2024 Dr. Yrn Kahn DO Other Provider Active S tart: December 07, 2024 Dr. Elton Abraham MD Other Provider Active Start: December 07, 2024 Dr. Ryan Ortega MD Other Provider Active Start: December 07, 2024 Dr. Freddie Perdue MD Other Provider Active Star t: December 07, 2024 Dr. Gonzalo Sebastian DO Other Provider Active Start : December 07, 2024 Dr. Jackson Britt MD Other Provider Active Sta rt: December 07, 2024 Dr. Jacky Perez MD Other Provider Active St art: December 07, 2024 Dr. Cricket Hoover MD Other Provider Active S tart: December 07, 2024 Dr. Rajni Avalos MD Other Provider Active Start: December 07, 2024 Dr. Kahlil Jeff MD Other Provider Active Start : December 07, 2024 Dr. Warren Anguiano MD Other Provider Active Start: December 07, 2024 Dr. Jaime Rey MD Other Provider Active Start : December 07, 2024 Dr. Maria Antonia Salinas MD Other Provider Active Star t: December 07, 2024 Dr. Michael Mistry MD Other Provider Active Sta rt: December 07, 2024 Dr. Sylvia Hurt MD Other Provider Active Sta rt: December 07, 2024 Dr. Jhony Arango MD Other Provider Active Star t: December 07, 2024 Dr. Alex Montesinos MD Other Provider Active St art: December 07, 2024 Dr. Franki Jackson MD Other Provider Active Star t: December 07, 2024 Dr. Hever Marrufo DO Other Provider Active St art: December 07, 2024 Dr. Gonzalo Cruz MD Other Provider Active Start: December 07, 2024 Dr. Nenita Armando MD Other Provider Active St art: December 07, 2024 Dr. Aris Black DO Other Provider Active Start: December 07, 2024 Dr. Estevan Govea MD Other Provider Active Star t: December 07, 2024 Dr. Demarco Cervantes MD Other Provider Active Sta rt: December 07, 2024 Collections Clerk Relationship Specialty Start Date End Date Annmarie Elkins MD [address] [place] [address] PCP - General Internal Medicine 03/26/21 Collections Clerk Relationship Specialty Start Date End Date Annmarie Elkins MD [address] [place] [address] PCP - General Internal Medicine 03/26/21 Collections Clerk Relationship Specialty Start Date End Date Annmarie Elkins MD [address] [place] [address] PCP - General Internal Medicine 03/26/21 Collections Clerk Relationship Specialty Start Date End Date Annmarie Elkins MD [address] [place] [address] PCP - General Internal Medicine 03/26/21 Collections Clerk Relationship Specialty Start Date End Date Annmarie Elkins MD [address] [place] [address] PCP - General Internal Medicine 03/26/21 Collections Clerk Relationship Specialty Start Date End Date Annmarie Elkins MD [address] [place] [address] PCP - General Internal Medicine 03/26/21 Collections Clerk Relationship Specialty Start Date End Date Annmarie Elkins MD [address] [place] [address] PCP - General Internal Medicine 03/26/21 Collections Clerk Relationship Specialty Start Date End Date Annmarie Elkins MD [address] [place] [address] PCP - General Internal Medicine 03/26/21 Collections Clerk Relationship Specialty Start Date End Date Annmarie Elkins MD [address] [place] [address] PCP - General Internal Medicine 03/26/21 Collections Clerk Relationship Specialty Start Date End Date Annmarie Elkins MD [address] [place] [address] PCP - General Internal Medicine 03/26/21 Collections Clerk Relationship Specialty Start Date End Date Annmarie Elkins MD [address] [place] [address] PCP - General Internal Medicine 03/26/21 Collections Clerk Relationship Specialty Start Date End Date Annmarie Elkins MD [address] [place] [address] PCP - General Internal Medicine 03/26/21 Collections Clerk Relationship Specialty Start Date End Date Annmarie Elkins MD [address] [place] [address] PCP - General Internal Medicine 03/26/21 Team Status: Active Member Role Status Dates Dr. Bernard Galan III, MD Family Provider Active SOILA EASTON , WARNING COORDINATION METEOROLOGIST-C Primary Care Provider Active Team Status: Inactive Member Role Status Dates SOILA EASTON , WARNING COORDINATION METEOROLOGIST-C Primary Care Provider Active Ani Eduardo WARNING COORDINATION METEOROLOGIST, WARNING COORDINATION METEOROLOGIST-C Attending Provider, Referrin g Provider Active Team Status: Inactive Member Role Status Dates SOILA EASTON , WARNING COORDINATION METEOROLOGIST-C Primary Care Provider Active Dr. Levar Handy DO Attending Provider, Emergency Provider Active Team Status: Inactive Member Role Status Dates SOILA EASTON , WARNING COORDINATION METEOROLOGIST-C Primary Care Provider Active Dr. Tasneem Dykes MD Emergency Provider Active Collections Clerk Relationship Specialty Start Date End Date Jaime Aggarwal MD [address] [place], [place] [id number] Resident Ophthalmology 11/01/22 Jeffery Jin MD [address] [place] [address] Resident Ophthalmology 11/01/22 Team Status: Active Member Role Status Dates SOILA EASTON , WARNING COORDINATION METEOROLOGIST-C Primary Care Provider Active Dr. Edmund Tang MD Emergency Provider Active Dr. Ciarra Ross MD Admit Provider, Attending Provider , Other Provider Active Team Status: Active Member Role Status Dates SOILA EASTON , WARNING COORDINATION METEOROLOGIST-C Primary Care Provider Active Dr. Edmund Tang MD Emergency Provider Active Dr. Ciarra Ross MD Admit Provider, Other Provider Act lopez Dr. Lisa Ochoa MD Attending Provider, Other Provid er Active Team Status: Active Member Role Status Dates SOILA EASTON , WARNING COORDINATION METEOROLOGIST-C Primary Care Provider Active Dr. Edmund Tang MD Emergency Provider Active Dr. Ciarra Ross MD Admit Provider, Other Provider Act lopez Dr. Freddie Perdue MD Other Provider Active Dr. Gonzalo Sebastian , Attending Provider, Other Provide r Active Dr. Olivier Coffman MD Other Provider Active Dr. Dieter Harrison MD Other Provider Active Ani Eduardo WARNING COORDINATION METEOROLOGIST, WARNING COORDINATION METEOROLOGIST-C Other Provider Active Dr. Anastacia Bonilla MD Other Provider Active Dr. Lisa Ochoa MD Other Provider Active Team Status: Active Member Role Status Lily EASTON , WARNING COORDINATION METEOROLOGIST-C Primary Care Provider Active Dr. Edmund Tang MD Emergency Provider Active Dr. Ciarra Ross MD Admit Provider, Other Provider Act lopez Dr. Freddie Perdue MD Other Provider Active Dr. Gonzalo Sebastian DO Other Provider Active Dr. Olivier Coffman MD Other Provider Active Dr. Dieter Harrison MD Other Provider Active Ani Eduardo WARNING COORDINATION METEOROLOGIST, WARNING COORDINATION METEOROLOGIST-C Other Provider Active Dr. Anastacia Bonilla MD Attending Provider, Other Prov ider Active Dr. Lisa Ochoa MD Other Provider Active Team Status: Active Member Role Status Lily EASTON , WARNING COORDINATION METEOROLOGIST-C Primary Care Provider Active Dr. Edmund Tang MD Emergency Provider Active Dr. Ciarra Ross MD Admit Provider, Other Provider Act lopez Dr. Freddie Perdue MD Other Provider Active Dr. Gonzalo Sebastian , Other Provider Active Dr. Olivier Coffman MD Other Provider Active Dr. Dieter Harrison MD Other Provider Active Ani Eduardo WARNING COORDINATION METEOROLOGIST, WARNING COORDINATION METEOROLOGIST-C Other Provider Active Dr. Lisa Ochoa MD Other Provider Active Dr. Courtney Iverson MD Other Provider Active Dr. Anastacia Bonilla MD Attending Provider, Other Prov ider Active Team Status: Active Member Role Status Dates SOILA OLDER , WARNING COORDINATION METEOROLOGIST-C Primary Care Provider Active Dr. Edmund Tang MD Emergency Provider Active Dr. Ciarra Ross MD Admit Provider, Other Provider Act lopez Dr. Freddie Perdue MD Other Provider Active Dr. Gonzalo Sebastian DO Attending Provider, Other Provide r Active Dr. Olivier Coffman MD Other Provider Active Dr. Dieter Harrison MD Other Provider Active Ani Eduardo WARNING COORDINATION METEOROLOGIST, WARNING COORDINATION METEOROLOGIST-C Other Provider Active Dr. Lisa Ochoa MD Other Provider Active Dr. Courtney Iverson MD Other Provider Active Dr. Anastacia Bonilla MD Other Provider Active Team Status: Active Member Role Status Dates SOILA OLDER , WARNING COORDINATION METEOROLOGIST-C Primary Care Provider Active Dr. Donn Galan MD Attending Provider Active Team Status: Active Member Role Status Dates SOILA OLDER , WARNING COORDINATION METEOROLOGIST-C Primary Care Provider Active Dr. Nacho Vega MD Attending Provider Active Dr. Mahamed Fatima DO Referring Provider Active Team Status: Active Member Role Status Dates SOILA OLDER , WARNING COORDINATION METEOROLOGIST-C Primary Care Provider Active Dr. Edmund Tang MD Emergency Provider Active Dr. Ciarra Ross MD Admit Provider, Other Provider Act lopez Dr. Lisa Ochoa MD Other Provider Active Dr. Anastacia Bonilla MD Attending Provider, Other Prov ider Active Dr. Freddie Perdue MD Other Provider Active Dr. Gonzalo Sebastian DO Other Provider Active Dr. Olivier Coffman MD Other Provider Active Dr. Dieter Harrison MD Other Provider Active Ani Eduardo WARNING COORDINATION METEOROLOGIST, WARNING COORDINATION METEOROLOGIST-C Other Provider Active Dr. Courtney Iverson MD Other Provider Active Team Status: Inactive Member Role Status Dates SOILA OLDER , WARNING COORDINATION METEOROLOGIST-C Primary Care Provider Active Dr. Tasneem Dykes MD Attending Provider, Emergency Provider Active Team Status: Inactive Member Role Status Dates SOILA OLDER , WARNING COORDINATION METEOROLOGIST-C Primary Care Provider Active Dr. Edmund Tang MD Emergency Provider Active Dr. Ciarra Ross MD Admit Provider, Other Provider Act lopez Dr. Lisa Ochoa , MD Other Provider Active Dr. Anastacia Bonilla MD Attending Provider Active Dr. Freddie Perdue MD Other Provider Active Dr. Gonzalo Sebastian DO Other Provider Active Dr. Olivier Coffman MD Other Provider Active Dr. Dieter Harrison MD Other Provider Active Ani Eduardo WARNING COORDINATION METEOROLOGIST, WARNING COORDINATION METEOROLOGIST-C Other Provider Active Dr. Courtney Iverson MD Other Provider Active Collections Clerk Relationship Specialty Start Date End Date Annmarie Elkins MD [address] [place] [address] PCP - General Internal Medicine 03/26/21 Collections Clerk Relationship Specialty Start Date End Date Annmarie Elkins MD [address] [place] [address] PCP - General Internal Medicine 03/26/21 Collections Clerk Relationship Specialty Start Date End Date Annmarie Elkins MD [address] [place] [address] PCP - General Internal Medicine 03/26/21 Collections Clerk Relationship Specialty Start Date End Date Annmarie Elkins MD [address] [place] [address] PCP - General Internal Medicine 03/26/21 Collections Clerk Relationship Specialty Start Date End Date Annmarie Elkins MD [address] [place] [address] PCP - General Internal Medicine 03/26/21 Collections Clerk Relationship Specialty Start Date End Date Annmarie Elkins MD [address] [place] [address] PCP - General Internal Medicine 03/26/21 Collections Clerk Relationship Specialty Start Date End Date Annmarie Elkins MD [address] [place] [address] PCP - General Internal Medicine 03/26/21 Team Status: Active Member Role Status Dates Ani Eduardo WARNING COORDINATION METEOROLOGIST, WARNING COORDINATION METEOROLOGIST-C Attending Provider, Referrin g Provider Active SOILA EASTON , WARNING COORDINATION METEOROLOGIST-C Primary Care Provider Active Team Status: Inactive Member Role Status Dates SOILA EASTON WARNING COORDINATION METEOROLOGIST-C Primary Care Provider Active Dr. Levar Handy , DO Emergency Provider Active Collections Clerk Relationship Specialty Start Date End Date Annmarie Elkins MD [address] [place] [address] PCP - General Internal Medicine 03/26/21 Collections Clerk Relationship Specialty Start Date End Date Annmarie Elkins MD [address] [place] [address] PCP - General Internal Medicine 03/26/21 Team Status: Inactive Member Role Status Dates SOILA EASTON WARNING COORDINATION METEOROLOGIST-C Primary Care Provider, Referring Prov ider Active Ani Eduardo WARNING COORDINATION METEOROLOGIST, WARNING COORDINATION METEOROLOGIST-C Attending Provider Active Team Status: Inactive Member Role Status Dates Ani Eduardo WARNING COORDINATION METEOROLOGIST, WARNING COORDINATION METEOROLOGIST-C Attending Provider, Referrin g Provider Active SOILA EASTON WARNING COORDINATION METEOROLOGIST-C Primary Care Provider Active Collections Clerk Relationship Specialty Start Date End Date Annmarie Elkins MD [address] [place] [address] PCP - General Internal Medicine 03/26/21 Collections Clerk Relationship Specialty Start Date End Date Annmarie Elkins MD [address] [place] [address] PCP - General Internal Medicine 03/26/21 Team Status: Active Member Role Status Dates Dr. Bernard Galan III, MD Family Provider Active Anat Gutiérrez WARNING COORDINATION METEOROLOGIST, WARNING COORDINATION METEOROLOGIST-C Primary Care Provider Active Team Status: Active Member Role Status Dates Dr. Víctor Huerta DO Emergency Provider Active Anat Gutiérrez WARNING COORDINATION METEOROLOGIST, WARNING COORDINATION METEOROLOGIST-C Primary Care Provider Active Dr. Carin Meraz MD Admit Provider, Attending Prov ider Active Team Status: Active Member Role Status Dates Dr. Víctor [place] , DO Emergency Provider Active Anat Gutiérrez WARNING COORDINATION METEOROLOGIST, WARNING COORDINATION METEOROLOGIST-C Primary Care Provider Active Dr. Carin Meraz MD Admit Provider, Other Provider Active Dr. Anastacia Bonilla MD Attending Provider, Other Prov ider Active Team Status: Active Member Role Status Dates Dr. Víctor Huerta , DO Emergency Provider Active Anat Gutiérrez WARNING COORDINATION METEOROLOGIST, WARNING COORDINATION METEOROLOGIST-C Primary Care Provider Active Dr. Carin Meraz MD Admit Provider, Other Provider Active Dr. Bert Greenwood MD Attending Provider, Other Provi mary Active Dr. Anastacia Bonilla MD Other Provider Active Team Status: Inactive Member Role Status Dates Dr. Víctor Huerta , DO Emergency Provider Active Anat Gutiérrez WARNING COORDINATION METEOROLOGIST, WARNING COORDINATION METEOROLOGIST-C Primary Care Provider Active Dr. Carin Meraz MD Admit Provider, Other Provider Active Dr. Bert Greenwood MD Attending Provider Active Dr. Anastacia Bonilla MD Other Provider Active Collections Clerk Relationship Specialty Start Date End Date Annmarie Elkins MD [address] [place] [address] PCP - General Internal Medicine 03/26/21 Collections Clerk Relationship Specialty Start Date End Date Annmarie Elkins MD [address] [place] [address] PCP - General Internal Medicine 03/26/21 Collections Clerk Relationship Specialty Start Date End Date Annmarie Elkins MD [address] [place] [address] PCP - General Internal Medicine 03/26/21 Team Status: Inactive Member Role Status Dates Anat Gutiérrez WARNING COORDINATION METEOROLOGIST, WARNING COORDINATION METEOROLOGIST-C Primary Care Provider Active Dr. Erik Gomez MD Emergency Provider Active Collections Clerk Relationship Specialty Start Date End Date Annmarie Elkins MD [address] [place] [address] PCP - General Internal Medicine 03/26/21 Collections Clerk Relationship Specialty Start Date End Date Annmarie Elkins MD [address] [place] [address] PCP - General Internal Medicine 03/26/21 Collections Clerk Relationship Specialty Start Date End Date Annmarie Elkins MD [address] [place] [address] PCP - General Internal Medicine 03/26/21 Collections Clerk Relationship Specialty Start Date End Date Annmarie Elkins MD [address] [place] [address] PCP - General Internal Medicine 03/26/21 Collections Clerk Relationship Specialty Start Date End Date Annmarie Elkins MD [address] [place] [address] PCP - General Internal Medicine 03/26/21 Collections Clerk Relationship Specialty Start Date End Date Annmarie Elkins MD [address] [place] [address] PCP - General Internal Medicine 03/26/21 Collections Clerk Relationship Specialty Start Date End Date Annmarie Elkins MD [address] [place] [address] PCP - General Internal Medicine 03/26/21 Collections Clerk Relationship Specialty Start Date End Date Annmarie Elkins MD [address] [place] [address] PCP - General Internal Medicine 03/26/21 Collections Clerk Relationship Specialty Start Date End Date Annmarie Elkins MD [address] [place] [address] PCP - General Internal Medicine 03/26/21 Collections Clerk Relationship Specialty Start Date End Date Annmarie Elkins MD [address] [place] [address] PCP - General Internal Medicine 03/26/21 Collections Clerk Relationship Specialty Start Date End Date Annmarie Elkins MD [address] [place] [address] PCP - General Internal Medicine 03/26/21 Collections Clerk Relationship Specialty Start Date End Date Annmarie Elkins MD [address] [place] [address] PCP - General Internal Medicine 03/26/21 Collections Clerk Relationship Specialty Start Date End Date Annmarie Elkins MD [address] [place] [address] PCP - General Internal Medicine 03/26/21 Collections Clerk Relationship Specialty Start Date End Date Annmarie Elkins MD [address] [place] [address] PCP - General Internal Medicine 03/26/21 Collections Clerk Relationship Specialty Start Date End Date Annmarie Elkins MD [address] [place] [address] PCP - General Internal Medicine 03/26/21 Collections Clerk Relationship Specialty Start Date End Date Annmarie Elkins MD [address] [place] [address] PCP - General Internal Medicine 03/26/21 Collections Clerk Relationship Specialty Start Date End Date Annmarie Elkins MD [address] [place] [address] PCP - General Internal Medicine 03/26/21 Collections Clerk Relationship Specialty Start Date End Date Annmarie Elkins MD [address] [place] [address] PCP - General Internal Medicine 03/26/21 Larry Talley PA-C [address] [place] [address] [employer] [facility] [facility] 09/04/24 Soila Easton APRN.DAYTIME CAREGIVER [address] [place] [address] [employer] Work[employer] Internal Medicine 09/04/24 Nara Larson PA-C [address] [place] [address] [employer] Work[employer] Family Medicine 09/04/24 Collections Clerk Relationship Specialty Start Date End Date Annmarie Elkins MD [address] [place] [address] PCP - General Internal Medicine 03/26/21 Larry Talley PA-C [address] [place] [address] [employer] Work[employer] Family Medicine 09/04/24 Soila Easton, COSMETIC CONSULTANT.DAYTIME CAREGIVER [address] [place] [address] [employer] Work[employer] Internal Medicine 09/04/24 Nara Larson PA-C [address] [place] [address] [employer] Work[employer] Family Medicine 09/04/24 Collections Clerk Relationship Specialty Start Date End Date Annmarie Elkins MD [address] [place] [address] PCP - General Internal Medicine 03/26/21 Larry Talley PA-C [address] [place] [address] [place] Work[employer] Family Medicine 09/04/24 Soila Easton APRN.DAYTIME CAREGIVER [address] [place] [address] [employer] Worker Internal Medicine 09/04/24 Nara Larson PA-C [address] [place] [address] [employer] Work[employer] Family Medicine 09/04/24 Collections Clerk Relationship Specialty Start Date End Date Annmarie Elkins MD [address] [place] [address] PCP - General Internal Medicine 03/26/21 Larry Talley PA-C [address] [place] [address] [employer] Work[employer] Family Medicine 09/04/24 Soila Easton APRN.DAYTIME CAREGIVER [address] [place] [address] [employer] Worker Internal Medicine 09/04/24 Nara Larson PA-C [address] [place] [address] [employer] Work[employer] Family Medicine 09/04/24 Collections Clerk Relationship Specialty Start Date End Date Annmarie Elkins MD [address] [place] [address] PCP - General Internal Medicine 03/26/21 Larry Talley PA-C [address] [place] [address] [employer] Worker Family [facility] 09/04/24 Soila Easton APRN.DAYTIME CAREGIVER [address] [place] [address] [employer] Worker Internal Medicine 09/04/24 Nara Larson PA-C [address] [place] [address] [facility] 09/04/24 Collections Clerk Relationship Specialty Start Date End Date Annmarie Elkins MD [address] [place] [address] PCP - General Internal Medicine 03/26/21 Larry Talley PA-C [address] [place] [address] [facility] Medicine 09/04/24 Soila Easton APRN.DAYTIME CAREGIVER [address] [place] [address] [employer] Worker Internal Medicine 09/04/24 Nara Larson PA-C [address] [place] [address] [facility] Family Medicine 09/04/24 Collections Clerk Relationship Specialty Start Date End Date Annmarie Elkins MD [address] [place] [address] PCP - General Internal Medicine 03/26/21 Larry Talley PA-C [address] [place] [address] [employer] Work[employer] Family Medicine 09/04/24 Soila Easton APRN.DAYTIME CAREGIVER [address] [place] [address] [employer] Worker Internal Medicine 09/04/24 Nara Larson PA-C [address] [place] [address] [employer] Work[employer] Family Medicine 09/04/24 Collections Clerk Relationship Specialty Start Date End Date Annmarie Elkins MD [address] [place] [address] PCP - General Internal Medicine 03/26/21 Larry Talley PA-C [address] [place] [address] [employer] Work[employer] Family Medicine 09/04/24 Soila Easton APRN.DAYTIME CAREGIVER [address] [place] [address] [employer] Worker Internal Medicine 09/04/24 Nara Larson PA-C [address] [place] [address] [facility] Collections Clerk Relationship Specialty Start Date End Date Annmarie Elkins MD [address] [place] [address] PCP - General Internal Medicine 03/26/21 Larry Talley PA-C [address] [place] [address] [employer] Work[employer] Family Medicine 09/04/24 Solia Easton APRN.DAYTIME CAREGIVER [address] [place] [address] [employer] Work[employer] Internal Medicine 09/04/24 Nara Larson PA-C [address] [place] [address] [employer] Work[employer] Family Medicine 09/04/24 Collections Clerk Relationship Specialty Start Date End Date Annmarie Elkins MD [address] [place] [address] PCP - General Internal Medicine 03/26/21 Larry Talley PA-C [address] [place] [address] [employer] Worker Family Medicine 09/04/24 Soila Easton APRN.DAYTIME CAREGIVER [address] [place] [address] [employer] Work[employer] Internal Medicine 09/04/24 Nara Larson PA-C [address] [place] [address] [employer] Work[employer] Family Medicine 09/04/24 Collections Clerk Relationship Specialty Start Date End Date Annmarie Elkins MD [address] [place] [address] PCP - General Internal Medicine 03/26/21 Soila Easton APRN.DAYTIME CAREGIVER [address] [place] [address] [employer] Worker Internal Medicine 09/04/24 Collections Clerk Relationship Specialty Start Date End Date Annmarie Elkins MD [address] [place] [address] PCP - General Internal Medicine 03/26/21 Soila Easton APRN.DAYTIME CAREGIVER [address] [facility], [place] [address] [employer] Worker Internal Medicine 09/04/24 Collections Clerk Relationship Specialty Start Date End Date Annmarie Elkins MD [address] [facility], [place] [address] PCP - General Internal Medicine 03/26/21 Soila Easton APRN.DAYTIME CAREGIVER [address] [place] [address] [employer] Worker Internal Medicine 09/04/24 Collections Clerk Relationship Specialty Start Date End Date Annmarie Elkins MD [address] [place] [address] PCP - General Internal Medicine 03/26/21 Soila Easton APRN.DAYTIME CAREGIVER [address] [place] [address] [employer] Work[employer] Internal Medicine 09/04/24 Team Status: Active Member Role Status Dates Dr. Annmarie Elkins MD Primary Care Provider Active Start: November 24, 2024 Ani Eduardo WARNING COORDINATION METEOROLOGIST, WARNING COORDINATION METEOROLOGIST-C Attending Provider Active Start: November 24, 2024 Ani Eduardo WARNING COORDINATION METEOROLOGIST, WARNING COORDINATION METEOROLOGIST-C Referring Provider Active Start: November 24, 2024 Team Status: Active Member Role Status Dates Dr. Annmarie Elkins MD Primary Care Provider Active Start: December 04, 2024 Dr. Franco Inman MD Emergency Provider Active S tart: December 04, 2024 Dr. Aleta Aguayo DO Admit Provider Active Start : December 04, 2024 Dr. Aleta Olivier , DO Attending Provider Active S tart: December 04, 2024 Collections Clerk Relationship Specialty Start Date End Date Annmarie Elkins MD [address] [place] [address] PCP - General Internal Medicine 03/26/21 Older, EDWARD RomeroN.DAYTIME CAREGIVER [address] [place] [address] [employer] Worker Internal Medicine 09/04/24 Team Status: Inactive Member Role Status Dates Dr. Annmarie Elkins MD Primary Care Provider Active Start: December 04, 2024 End: December 12, 2024 Dr. Franco Inman MD Emergency Provider Active S tart: December 04, 2024 End: December 12, 2024 Dr. Aleta Aguayo , Admit Provider Active Start : December 04, 2024 End: December 12, 2024 Dr. Aleta Aguayo , Other Provider Active Start : December 04, 2024 End: December 12, 2024 Dr. Anastacia Bonilla MD Attending Provider Active Start: December 04, 2024 End: December 12, 2024 Dr. Yrn Kahn , Other Provider Active S tart: December 04, 2024 End: December 12, 2024 Team Status: Active Member Role Status Dates Dr. Annmarie Elkins MD Primary Care Provider Active Start: December 08, 2024 Dr. Franco Inman MD Emergency Provider Active S tart: December 08, 2024 Dr. Aleta Aguayo , Admit Provider Active Start : December 08, 2024 Dr. Aleta Aguayo DO Other Provider Active Start : December 08, 2024 Dr. Yrn Kahn , Other Provider Active S tart: December 08, 2024 Dr. Elton Abraham MD Other Provider Active Start: December 08, 2024 Dr. Ryan Ortega MD Other Provider Active Start: December 08, 2024 Dr. Freddie Perdue MD Other Provider Active Star t: December 08, 2024 Dr. Gonzalo Sebastian , Attending Provider Active S tart: December 08, 2024 Dr. Gonzalo Sebastian , Other Provider Active Start : December 08, 2024 Dr. Jackson Britt MD Other Provider Active Sta rt: December 08, 2024 Dr. Jacky Perez MD Other Provider Active St art: December 08, 2024 Dr. Cricket Hoover MD Other Provider Active S tart: December 08, 2024 Dr. Rajni Avalos MD Other Provider Active Start: December 08, 2024 Dr. Kahlil Jeff MD Other Provider Active Start : December 08, 2024 Dr. Warren Anguiano MD Other Provider Active Start: December 08, 2024 Dr. Jaime Rey MD Other Provider Active Start : December 08, 2024 Dr. Maria Antonia Salinas MD Other Provider Active Star t: December 08, 2024 Dr. Michael Mistry MD Other Provider Active Sta rt: December 08, 2024 Dr. Sylvia Hurt MD Other Provider Active Sta rt: December 08, 2024 Dr. Jhony Arango MD Other Provider Active Star t: December 08, 2024 Dr. Alex Montesinos MD Other Provider Active St art: December 08, 2024 Dr. Franki Jacksno MD Other Provider Active Star t: December 08, 2024 Dr. Hever Marrufo DO Other Provider Active St art: December 08, 2024 Dr. Gonzalo Cruz MD Other Provider Active Start: December 08, 2024 Dr. Nenita rAmando MD Other Provider Active St art: December 08, 2024 Dr. Aris Black DO Other Provider Active Start: December 08, 2024 Dr. Estevan Govea MD Other Provider Active Star t: December 08, 2024 Dr. Demarco Cervantes MD Other Provider Active Sta rt: December 08, 2024 Team Status: Active Member Role Status Dates Dr. Annmarie Elkins MD Primary Care Provider Active Start: December 08, 2024 Dr. Franco Inman MD Emergency Provider Active S tart: December 08, 2024 Dr. Aleta Aguayo DO Admit Provider Active Start : December 08, 2024 Dr. Aleta Aguayo DO Other Provider Active Start : December 08, 2024 Dr. Yrn Kahn DO Attending Provider Active Start: December 08, 2024 Dr. Yrn Kahn , Other Provider Active S tart: December 08, 2024 Dr. Elton Abraham MD Other Provider Active Start: December 08, 2024 Dr. Ryan Ortega MD Other Provider Active Start: December 08, 2024 Dr. Freddie Perdue MD Other Provider Active Star t: December 08, 2024 Dr. Gonzalo Sebastian , Other Provider Active Start : December 08, 2024 Dr. Jackson Britt MD Other Provider Active Sta rt: December 08, 2024 Dr. Jacky Perez MD Other Provider Active St art: December 08, 2024 Dr. Cricket Hoover MD Other Provider Active S tart: December 08, 2024 Dr. Rajni Avalos MD Other Provider Active Start: December 08, 2024 Dr. Kahlil Jeff MD Other Provider Active Start : December 08, 2024 Dr. Warren Anguiano MD Other Provider Active Start: December 08, 2024 Dr. Jaime Rey MD Other Provider Active Start : December 08, 2024 Dr. Maria Antonia Salinas MD Other Provider Active Star t: December 08, 2024 Dr. Michael Mistry MD Other Provider Active Sta rt: December 08, 2024 Dr. Sylvia Hurt MD Other Provider Active Sta rt: December 08, 2024 Dr. Jhony Arango MD Other Provider Active Star t: December 08, 2024 Dr. Alex Montesinos MD Other Provider Active St art: December 08, 2024 Dr. Franki Jackson MD Other Provider Active Star t: December 08, 2024 Dr. Hever Marrufo DO Other Provider Active St art: December 08, 2024 Dr. Gonzalo Cruz MD Other Provider Active Start: December 08, 2024 Dr. Nenita Armando MD Other Provider Active St art: December 08, 2024 Dr. Aris Black DO Other Provider Active Start: December 08, 2024 Dr. Estevan Govea MD Other Provider Active Star t: December 08, 2024 Dr. Demarco Cervantes MD Other Provider Active Sta rt: December 08, 2024 Team Status: Active Member Role Status Dates Dr. Annmarie Elkins MD Primary Care Provider Active Start: December 09, 2024 Dr. Franco Inman MD Emergency Provider Active S tart: December 09, 2024 Dr. Aleta Aguayo DO Admit Provider Active Start : December 09, 2024 Dr. Aleta Aguayo DO Other Provider Active Start : December 09, 2024 Dr. Elton Abraham MD Other Provider Active Start: December 09, 2024 Dr. Ryan Ortega MD Other Provider Active Start: December 09, 2024 Dr. Freddie Perdue MD Other Provider Active Star t: December 09, 2024 Dr. Gonzalo Sebastian DO Attending Provider Active S tart: December 09, 2024 Dr. Gonzalo Sebastian DO Other Provider Active Start : December 09, 2024 Dr. Jackson Britt MD Other Provider Active Sta rt: December 09, 2024 Dr. Jacky ePrez MD Other Provider Active St art: December 09, 2024 Dr. Cricket Hoover MD Other Provider Active S tart: December 09, 2024 Dr. Rajni Avalos MD Other Provider Active Start: December 09, 2024 Dr. Kahlil Jeff MD Other Provider Active Start : December 09, 2024 Dr. Warren Anguiano MD Other Provider Active Start: December 09, 2024 Dr. Jaime Rey MD Other Provider Active Start : December 09, 2024 Dr. Maria Antonia Salinas MD Other Provider Active Star t: December 09, 2024 Dr. Michael Mistry MD Other Provider Active Sta rt: December 09, 2024 Dr. Sylvia Hurt MD Other Provider Active Sta rt: December 09, 2024 Dr. Jhony Arango MD Other Provider Active Star t: December 09, 2024 Dr. Alex Montesinos MD Other Provider Active St art: December 09, 2024 Dr. Franki Jackson MD Other Provider Active Star t: December 09, 2024 Dr. Hever Marruof DO Other Provider Active St art: December 09, 2024 Dr. Gonzalo Cruz MD Other Provider Active Start: December 09, 2024 Dr. Nenita Armando MD Other Provider Active St art: December 09, 2024 Dr. Aris Black DO Other Provider Active Start: December 09, 2024 Dr. Estevan Govea MD Other Provider Active Star t: December 09, 2024 Dr. Demarco Cervantes MD Other Provider Active Sta rt: December 09, 2024 Dr. Anastacia Bonilla MD Other Provider Active St art: December 09, 2024 Dr. Yrn Kahn DO Other Provider Active S tart: December 09, 2024 Team Status: Active Member Role Status Dates Dr. Annmarie Elkins MD Primary Care Provider Active Start: December 09, 2024 Dr. Franco Inman MD Emergency Provider Active S tart: December 09, 2024 Dr. Aleta Aguayo DO Admit Provider Active Start : December 09, 2024 Dr. Aleta Aguayo DO Other Provider Active Start : December 09, 2024 Dr. Elton Abraham MD Other Provider Active Start: December 09, 2024 Dr. Ryan Ortega MD Other Provider Active Start: December 09, 2024 Dr. Freddie Perdue MD Other Provider Active Star t: December 09, 2024 Dr. Gonzalo Sebastian DO Other Provider Active Start : December 09, 2024 Dr. Jackson Britt MD Other Provider Active Sta rt: December 09, 2024 Dr. Jacyk Perez MD Other Provider Active St art: December 09, 2024 Dr. Cricket Hoover MD Other Provider Active S tart: December 09, 2024 Dr. Rajni Avalos MD Other Provider Active Start: December 09, 2024 Dr. Kahlil Jeff MD Other Provider Active Start : December 09, 2024 Dr. Warren Anguiano MD Other Provider Active Start: December 09, 2024 Dr. Jaime Rey MD Other Provider Active Start : December 09, 2024 Dr. Maria Antonia Salinas MD Other Provider Active Star t: December 09, 2024 Dr. Michael Mistry MD Other Provider Active Sta rt: December 09, 2024 Dr. Sylvia Hurt MD Other Provider Active Sta rt: December 09, 2024 Dr. Jhony Arango MD Other Provider Active Star t: December 09, 2024 Dr. Alex Montesinos MD Other Provider Active St art: December 09, 2024 Dr. Franki Jackson MD Other Provider Active Star t: December 09, 2024 Dr. Hever Marrufo , Other Provider Active St art: December 09, 2024 Dr. Gonzalo Cruz MD Other Provider Active Start: December 09, 2024 Dr. Nenita Armando MD Other Provider Active St art: December 09, 2024 Dr. Aris Black , Other Provider Active Start: December 09, 2024 Dr. Estevan Govea MD Other Provider Active Star t: December 09, 2024 Dr. Demarco Cervantes MD Other Provider Active Sta rt: December 09, 2024 Dr. Anastacia Bonilla MD Attending Provider Active Start: December 09, 2024 Dr. Anastacia Bonilla MD Other Provider Active St art: December 09, 2024 Dr. Yrn Kahn , Other Provider Active S tart: December 09, 2024 Team Status: Active Member Role Status Dates Dr. Annmarie Elkins MD Primary Care Provider Active Start: December 10, 2024 Dr. Franco Inman MD Emergency Provider Active S tart: December 10, 2024 Dr. Aleta Aguayo DO Admit Provider Active Start : December 10, 2024 Dr. Aleta Aguayo DO Other Provider Active Start : December 10, 2024 Dr. Elton Abraham MD Other Provider Active Start: December 10, 2024 Dr. Ryan Ortega MD Other Provider Active Start: December 10, 2024 Dr. Freddie Perdue MD Other Provider Active Star t: December 10, 2024 Dr. Gonzalo Sebastian , Other Provider Active Start : December 10, 2024 Dr. Jackson Britt MD Other Provider Active Sta rt: December 10, 2024 Dr. Jacky Perez MD Other Provider Active St art: December 10, 2024 Dr. Cricket Hoover MD Other Provider Active S tart: December 10, 2024 Dr. Rajni Avalos MD Other Provider Active Start: December 10, 2024 Dr. Kahlil Jeff MD Other Provider Active Start : December 10, 2024 Dr. Warren Anguiano MD Other Provider Active Start: December 10, 2024 Dr. Jaime Rey MD Other Provider Active Start : December 10, 2024 Dr. Maria Antonia Salinas MD Other Provider Active Star t: December 10, 2024 Dr. Michael Mistry MD Other Provider Active Sta rt: December 10, 2024 Dr. Sylvia Hurt MD Other Provider Active Sta rt: December 10, 2024 Dr. Jhony Arango MD Other Provider Active Star t: December 10, 2024 Dr. Alex Montesinos MD Other Provider Active St art: December 10, 2024 Dr. Franki Jakcson MD Other Provider Active Star t: December 10, 2024 Dr. Hever Marrufo , Other Provider Active St art: December 10, 2024 Dr. Gonzalo Cruz MD Other Provider Active Start: December 10, 2024 Dr. Nenita Armando MD Other Provider Active St art: December 10, 2024 Dr. Aris Black DO Other Provider Active Start: December 10, 2024 Dr. Estevan Govea MD Other Provider Active Star t: December 10, 2024 Dr. Demarco Cervantes MD Other Provider Active Sta rt: December 10, 2024 Dr. Anastacia Bonilla MD Attending Provider Active Start: December 10, 2024 Dr. Anastacia Bonilla MD Other Provider Active St art: December 10, 2024 Dr. Yrn Kahn DO Other Provider Active S tart: December 10, 2024 Team Status: Active Member Role Status Dates Dr. Annmarie Elkins MD Primary Care Provider Active Start: December 11, 2024 Dr. Franco Inman MD Emergency Provider Active S tart: December 11, 2024 Dr. Aleta Aguayo DO Admit Provider Active Start : December 11, 2024 Dr. Aleta Aguayo DO Other Provider Active Start : December 11, 2024 Dr. Elton Abraham MD Other Provider Active Start: December 11, 2024 Dr. Ryan Ortega MD Other Provider Active Start: December 11, 2024 Dr. Freddie Perdue MD Other Provider Active Star t: December 11, 2024 Dr. Gonzalo Sebastian DO Other Provider Active Start : December 11, 2024 Dr. Jackson Britt MD Other Provider Active Sta rt: December 11, 2024 Dr. Jacky Perez MD Other Provider Active St art: December 11, 2024 Dr. Cricket Hoover MD Other Provider Active S tart: December 11, 2024 Dr. Rajni Avalos MD Other Provider Active Start: December 11, 2024 Dr. Kahlil Jeff MD Other Provider Active Start : December 11, 2024 Dr. Warren Anguiano MD Other Provider Active Start: December 11, 2024 Dr. Jaime Rey MD Other Provider Active Start : December 11, 2024 Dr. Maria Antonia Salinas MD Other Provider Active Star t: December 11, 2024 Dr. Michael Mistry MD Other Provider Active Sta rt: December 11, 2024 Dr. Sylvia Hurt MD Other Provider Active Sta rt: December 11, 2024 Dr. Jhony Arango MD Other Provider Active Star t: December 11, 2024 Dr. Alex Montesinos MD Other Provider Active St art: December 11, 2024 Dr. Franki Jackson MD Other Provider Active Star t: December 11, 2024 Dr. Hever Marrufo DO Other Provider Active St art: December 11, 2024 Dr. Gonzalo Cruz MD Other Provider Active Start: December 11, 2024 Dr. Nenita Armando MD Other Provider Active St art: December 11, 2024 Dr. Aris Black DO Other Provider Active Start: December 11, 2024 Dr. Estevan Govea MD Other Provider Active Star t: December 11, 2024 Dr. Demarco Cervantes MD Other Provider Active Sta rt: December 11, 2024 Dr. Anastacia Bonilla MD Attending Provider Active Start: December 11, 2024 Dr. Anastacia Bonilla MD Other Provider Active St art: December 11, 2024 Dr. Yrn Kahn DO Other Provider Active S tart: December 11, 2024 Team Status: Active Member Role Status Dates Dr. Annmarie Elkins MD Primary Care Provider Active Start: December 12, 2024 Dr. Franco Inman MD Emergency Provider Active S tart: December 12, 2024 Dr. Aleta Aguayo DO Admit Provider Active Start : December 12, 2024 Dr. Aleta Aguayo , DO Other Provider Active Start : December 12, 2024 Dr. Anastacia Bonilla MD Other Provider Active St art: December 12, 2024 Dr. Yrn Kahn , DO Other Provider Active S tart: December 12, 2024 Dr. Gonzalo Sebastian , DO Attending Provider Active S tart: December 12, 2024 Team Status: Active Member Role Status Dates Dr. Annmarie Elkins MD Primary Care Provider Active Start: December 12, 2024 Dr. Franco Inman MD Emergency Provider Active S tart: December 12, 2024 Dr. Aleta Aguayo , Admit Provider Active Start : December 12, 2024 Dr. Aleat Aguayo , Other Provider Active Start : December 12, 2024 Dr. Anastacia Bonilla MD Other Provider Active St art: December 12, 2024 Dr. Yrn Kahn , Other Provider Active S tart: December 12, 2024 Dr. Marshal Segura , DO Attending Provider Active Start: December 12, 2024 Team Status: Active Member Role Status Dates Dr. Annmarie Elkins MD Primary Care Provider Active Start: December 12, 2024 Dr. Franco Inman MD Emergency Provider Active S tart: December 12, 2024 Dr. Aleta Aguayo , Admit Provider Active Start : December 12, 2024 Dr. Aleta Aguayo , Other Provider Active Start : December 12, 2024 Dr. Anastacia Bonilla MD Attending Provider Active Start: December 12, 2024 Dr. Anastacia Bonilla MD Other Provider Active St art: December 12, 2024 Dr. Yrn Kahn , Other Provider Active S tart: December 12, 2024 Team Status: Active Member Role Status Dates Dr. Annmarie Elkins MD Primary Care Provider Active Start: December 05, 2024 Dr. Franco Inman MD Emergency Provider Active S tart: December 05, 2024 Dr. Aleta Aguayo , Admit Provider Active Start : December 05, 2024 Dr. Aleta Aguayo , DO Other Provider Active Start : December 05, 2024 Dr. Yrn Kahn DO Referring Provider Active Start: December 05, 2024 Dr. Yrn Kahn , DO Other Provider Active S tart: December 05, 2024 Dr. Elton Abraham MD Other Provider Active Start: December 05, 2024 Dr. Ryan Ortega MD Other Provider Active Start: December 05, 2024 Dr. Freddie Perdue MD Other Provider Active Star t: December 05, 2024 Dr. Gonzalo Sebastian , Attending Provider Active S tart: December 05, 2024 Dr. Gonzalo Sebastian , Other Provider Active Start : December 05, 2024 Dr. Jackson Britt MD Other Provider Active Sta rt: December 05, 2024 Dr. Jacky Perez MD Other Provider Active St art: December 05, 2024 Dr. Cricket Hoover MD Other Provider Active S tart: December 05, 2024 Dr. Rajni Avalos MD Other Provider Active Start: December 05, 2024 Dr. Kahlil Jeff MD Other Provider Active Start : December 05, 2024 Dr. Warren Anguiano MD Other Provider Active Start: December 05, 2024 Dr. Jaime Rey MD Other Provider Active Start : December 05, 2024 Dr. Maria Antonia Salinas MD Other Provider Active Star t: December 05, 2024 Dr. Michael Mistry MD Other Provider Active Sta rt: December 05, 2024 Dr. Sylvia Hurt MD Other Provider Active Sta rt: December 05, 2024 Dr. Jhony Arango MD Other Provider Active Star t: December 05, 2024 Dr. Alex Montesinos MD Other Provider Active St art: December 05, 2024 Dr. Franki Jackson MD Other Provider Active Star t: December 05, 2024 Dr. Hever Marrufo , Other Provider Active St art: December 05, 2024 Dr. Gonzalo Cruz MD Other Provider Active Start: December 05, 2024 Dr. Nenita Armando MD Other Provider Active St art: December 05, 2024 Dr. Aris Black , Other Provider Active Start: December 05, 2024 Dr. Estevan Govea MD Other Provider Active Star t: December 05, 2024 Dr. Demarco Cervantes MD Other Provider Active Sta rt: December 05, 2024 Team Status: Active Member Role Status Dates Dr. Annmarie Elkins MD Primary Care Provider Active Start: December 06, 2024 Dr. Franco Inman MD Emergency Provider Active S tart: December 06, 2024 Dr. Aleta Aguayo , Admit Provider Active Start : December 06, 2024 Dr. Aleta Aguayo , Other Provider Active Start : December 06, 2024 Dr. Yrn Kahn DO Referring Provider Active Start: December 06, 2024 Dr. Yrn Kahn DO Other Provider Active S tart: December 06, 2024 Dr. Elton Abraham MD Other Provider Active Start: December 06, 2024 Dr. Ryan Ortega MD Other Provider Active Start: December 06, 2024 Dr. Freddie Perdue MD Other Provider Active Star t: December 06, 2024 Dr. Gonzalo Sebastian DO Attending Provider Active S tart: December 06, 2024 Dr. Gonzalo Sebastian DO Other Provider Active Start : December 06, 2024 Dr. Jackson Britt MD Other Provider Active Sta rt: December 06, 2024 Dr. Jacky Perez MD Other Provider Active St art: December 06, 2024 Dr. Cricket Hoover MD Other Provider Active S tart: December 06, 2024 Dr. Rajni Avalos MD Other Provider Active Start: December 06, 2024 Dr. Kahlil Jeff MD Other Provider Active Start : December 06, 2024 Dr. Warren Anguiano MD Other Provider Active Start: December 06, 2024 Dr. Jaime Rey MD Other Provider Active Start : December 06, 2024 Dr. Maria Antonia Salinas MD Other Provider Active Star t: December 06, 2024 Dr. Michael Mistry MD Other Provider Active Sta rt: December 06, 2024 Dr. Sylvia Hurt MD Other Provider Active Sta rt: December 06, 2024 Dr. Jhony Arango MD Other Provider Active Star t: December 06, 2024 Dr. Alex Montesinos MD Other Provider Active St art: December 06, 2024 Dr. Franki Jackson MD Other Provider Active Star t: December 06, 2024 Dr. Hever Marrufo DO Other Provider Active St art: December 06, 2024 Dr. Gonzalo Cruz MD Other Provider Active Start: December 06, 2024 Dr. Nenita Armando MD Other Provider Active St art: December 06, 2024 Dr. Aris Black DO Other Provider Active Start: December 06, 2024 Dr. Estevan Govea MD Other Provider Active Star t: December 06, 2024 Dr. Demarco Cervantes MD Other Provider Active Sta rt: December 06, 2024 Team Status: Active Member Role Status Dates Dr. Annmarie Elkins MD Primary Care Provider Active Start: December 07, 2024 Dr. Franco Inman MD Emergency Provider Active S tart: December 07, 2024 Dr. Aleta Aguayo DO Admit Provider Active Start : December 07, 2024 Dr. Aleta Aguayo DO Other Provider Active Start : December 07, 2024 Dr. Yrn Kahn DO Referring Provider Active Start: December 07, 2024 Dr. Yrn Kahn DO Other Provider Active S tart: December 07, 2024 Dr. Elton Abraham MD Other Provider Active Start: December 07, 2024 Dr. Ryan Ortega MD Other Provider Active Start: December 07, 2024 Dr. Freddie Perdue MD Other Provider Active Star t: December 07, 2024 Dr. Gonzalo Sebastian DO Attending Provider Active S tart: December 07, 2024 Dr. Gonzalo Sebastian DO Other Provider Active Start : December 07, 2024 Dr. Jackson Britt MD Other Provider Active Sta rt: December 07, 2024 Dr. Jacky Perez MD Other Provider Active St art: December 07, 2024 Dr. Cricket Hoover MD Other Provider Active S tart: December 07, 2024 Dr. Rajni Avalos MD Other Provider Active Start: December 07, 2024 Dr. Kahlil eJff MD Other Provider Active Start : December 07, 2024 Dr. Warren Anguiano MD Other Provider Active Start: December 07, 2024 Dr. Jaime Rey MD Other Provider Active Start : December 07, 2024 Dr. Maria Antonia Salinas MD Other Provider Active Star t: December 07, 2024 Dr. Michael Mistry MD Other Provider Active Sta rt: December 07, 2024 Dr. Sylvia Hurt MD Other Provider Active Sta rt: December 07, 2024 Dr. Jhony Arango MD Other Provider Active Star t: December 07, 2024 Dr. Alex Montesinos MD Other Provider Active St art: December 07, 2024 Dr. Franki Jackson MD Other Provider Active Star t: December 07, 2024 Dr. Hever Marrufo , Other Provider Active St art: December 07, 2024 Dr. Gonzalo Cruz MD Other Provider Active Start: December 07, 2024 Dr. Nenita Armando MD Other Provider Active St art: December 07, 2024 Dr. Aris Black , Other Provider Active Start: December 07, 2024 Dr. Estevan Govea MD Other Provider Active Star t: December 07, 2024 Dr. Demarco Cervantes MD Other Provider Active Sta rt: December 07, 2024 Team Status: Active Member Role Status Dates Dr. Annmarie Elkins MD Primary Care Provider Active Start: December 08, 2024 Dr. Franco Inman MD Emergency Provider Active S tart: December 08, 2024 Dr. Aleta Aguayo DO Admit Provider Active Start : December 08, 2024 Dr. Aleta Aguayo DO Other Provider Active Start : December 08, 2024 Dr. Yrn Kahn DO Referring Provider Active Start: December 08, 2024 Dr. Yrn Kahn DO Other Provider Active S tart: December 08, 2024 Dr. Elton Abraham MD Other Provider Active Start: December 08, 2024 Dr. Ryan Ortega MD Other Provider Active Start: December 08, 2024 Dr. Freddie Perdue MD Other Provider Active Star t: December 08, 2024 Dr. Gonzalo Sebastian DO Attending Provider Active S tart: December 08, 2024 Dr. Gonzalo Sebastian DO Other Provider Active Start : December 08, 2024 Dr. Jackson Britt MD Other Provider Active Sta rt: December 08, 2024 Dr. Jacky Perez MD Other Provider Active St art: December 08, 2024 Dr. Cricket Hoover MD Other Provider Active S tart: December 08, 2024 Dr. Rajni Avalos MD Other Provider Active Start: December 08, 2024 Dr. Kahlil Jeff MD Other Provider Active Start : December 08, 2024 Dr. Warren Anguiano MD Other Provider Active Start: December 08, 2024 Dr. Jaime Rey MD Other Provider Active Start : December 08, 2024 Dr. Maria Antonia Salinas MD Other Provider Active Star t: December 08, 2024 Dr. Michael Mistry MD Other Provider Active Sta rt: December 08, 2024 Dr. Sylvia Hurt MD Other Provider Active Sta rt: December 08, 2024 Dr. Jhony Arango MD Other Provider Active Star t: December 08, 2024 Dr. Alex Montesinos MD Other Provider Active St art: December 08, 2024 Dr. Franki Jackson MD Other Provider Active Star t: December 08, 2024 Dr. Hever Marrufo DO Other Provider Active St art: December 08, 2024 Dr. Gonzalo Cruz MD Other Provider Active Start: December 08, 2024 Dr. Nenita Armando MD Other Provider Active St art: December 08, 2024 Dr. Aris Black DO Other Provider Active Start: December 08, 2024 Dr. Estevan Govea MD Other Provider Active Star t: December 08, 2024 Dr. Demarco Cervantes MD Other Provider Active Sta rt: December 08, 2024 Team Status: Active Member Role Status Dates Dr. Annmarie Elkins MD Primary Care Provider Active Start: December 09, 2024 Dr. Franco Inman MD Emergency Provider Active S tart: December 09, 2024 Dr. Aleta Aguayo DO Admit Provider Active Start : December 09, 2024 Dr. Aleta Aguayo DO Other Provider Active Start : December 09, 2024 Dr. Elton Abraham MD Other Provider Active Start: December 09, 2024 Dr. Ryan Ortega MD Other Provider Active Start: December 09, 2024 Dr. Freddie Perdue MD Other Provider Active Star t: December 09, 2024 Dr. Gonzalo Sebastian DO Attending Provider Active S tart: December 09, 2024 Dr. Gonzalo Sebastian DO Other Provider Active Start : December 09, 2024 Dr. Jackson Britt MD Other Provider Active Sta rt: December 09, 2024 Dr. Jacky Perez MD Other Provider Active St art: December 09, 2024 Dr. Cricket Hoover MD Other Provider Active S tart: December 09, 2024 Dr. Rajni Avalos MD Other Provider Active Start: December 09, 2024 Dr. Kahlil Jeff MD Other Provider Active Start : December 09, 2024 Dr. Warren Anguiano MD Other Provider Active Start: December 09, 2024 Dr. Jaime Rey MD Other Provider Active Start : December 09, 2024 Dr. Maria Antonia Salinas MD Other Provider Active Star t: December 09, 2024 Dr. Michael Mistry MD Other Provider Active Sta rt: December 09, 2024 Dr. Sylvia Hurt MD Other Provider Active Sta rt: December 09, 2024 Dr. Jhony Arango MD Other Provider Active Star t: December 09, 2024 Dr. Alex Montesinos MD Other Provider Active St art: December 09, 2024 Dr. Franki Jackson MD Other Provider Active Star t: December 09, 2024 Dr. Hever Marrufo DO Other Provider Active St art: December 09, 2024 Dr. Gonzalo Cruz MD Other Provider Active Start: December 09, 2024 Dr. Nenita Armando MD Other Provider Active St art: December 09, 2024 Dr. Aris Black DO Other Provider Active Start: December 09, 2024 Dr. Estevan Govea MD Other Provider Active Star t: December 09, 2024 Dr. Demarco Cervantes MD Other Provider Active Sta rt: December 09, 2024 Dr. Anastacia Bonilla MD Other Provider Active St art: December 09, 2024 Dr. Yrn Kahn DO Referring Provider Active Start: December 09, 2024 Dr. Yrn Kahn DO Other Provider Active S tart: December 09, 2024 Team Status: Active Member Role Status Dates Dr. Annmarie Elkins MD Primary Care Provider Active Start: December 12, 2024 Dr. Franco Inman MD Emergency Provider Active S tart: December 12, 2024 Dr. Aleta Aguayo DO Admit Provider Active Start : December 12, 2024 Dr. Aleta Aguayo DO Other Provider Active Start : December 12, 2024 Dr. Anastacia Bonilla MD Referring Provider Active Start: December 12, 2024 Dr. Anastacia Bonilla MD Other Provider Active St art: December 12, 2024 Dr. Yrn Kahn , Other Provider Active S tart: December 12, 2024 Dr. Gonzalo Sebastian DO Attending Provider Active S tart: December 12, 2024 Team Status: Active Member Role Status Dates Dr. Annmarie Elkins MD Primary Care Provider Active Start: December 12, 2024 Dr. Franco Inman MD Emergency Provider Active S tart: December 12, 2024 Dr. Aleta Aguayo DO Admit Provider Active Start : December 12, 2024 Dr. Aleta Aguayo DO Other Provider Active Start : December 12, 2024 Dr. Anastacia Bonilla MD Referring Provider Active Start: December 12, 2024 Dr. Anastacia Bonilla MD Other Provider Active St art: December 12, 2024 Dr. Yrn Kahn , Other Provider Active S tart: December 12, 2024 Dr. Marshal Segura DO Attending Provider Active Start: December 12, 2024 Team Status: Inactive Member Role Status Dates Dr. Annmarie Elikns MD Primary Care Provider Active Start: December 16, 2024 End: December 16, 2024 Dr. Annmarie Elkins MD Referring Provider Active Start: December 16, 2024 End: December 16, 2024 RICARDO Corral Attending Provider Active Start: December 16, 2024 End: December 16, 2024 Team Status: Inactive Member Role Status Dates Dr. Annmarie Elkins MD Primary Care Provider Active Start: December 23, 2024 End: December 23, 2024 Dr. Annmarie Elkins MD Referring Provider Active Start: December 23, 2024 End: December 23, 2024 Ani Eduardo WARNING COORDINATION METEOROLOGIST, WARNING COORDINATION METEOROLOGIST-C Attending Provider Active Start: December 23, 2024 End: December 23, 2024 Team Status: Inactive Member Role Status Dates Dr. Annmarie Elkins MD Primary Care Provider Active Start: December 24, 2024 End: December 24, 2024 Dr. Mo Velasco DO Emergency Provider Active Start : December 24, 2024 End: December 24, 2024 Collections Clerk Relationship Specialty Start Date End Date Annmarie Elkins MD [address] [place], [place] [id number] PCP - General Internal Medicine 03/26/21 Soila Easton APRN.DAYTIME CAREGIVER [address] [place] [address] [place] Internal Medicine 09/04/24 Team Status: Inactive Member Role Status Dates Dr. Annmarie Elkins MD Primary Care Provider Active Start: December 24, 2024 End: December 24, 2024 Dr. Mo Velasco DO Attending Provider Active Start : December 24, 2024 End: December 24, 2024 Dr. Mo Velasco DO Emergency Provider Active Start : December 24, 2024 End: December 24, 2024 Team Status: Inactive Member Role Status Dates Dr. Annmarie Elkins MD Primary Care Provider Active Start: January 01, 2025 End: January 01, 2025 Leandro Sanchez MD Referring Provider Active Star t: January 01, 2025 End: January 01, 2025 Leandro Sanchez MD Emergency Provider Active Star t: January 01, 2025 End: January 01, 2025 Collections Clerk Relationship Specialty Start Date End Date Annmarie Elkins MD [address] [place] [address] PCP - General Internal Medicine 03/26/21 Soila Easton APRN.DAYTIME CAREGIVER [address] [place] [address] [employer] Internal Medicine 09/04/24 Collections Clerk Relationship Specialty Start Date End Date Annmarie Elkins MD [address] [facility] [place], [place] [id number] PCP - General Internal Medicine 03/26/21 Soila Easton APRN.DAYTIME CAREGIVER [address] [facility] [place], [place] [id number] [place] Worker Internal Medicine 09/04/24 Collections Clerk Relationship Specialty Start Date End Date Annmarie Elkins MD [address] [place], [place] [address] PCP - General Internal Medicine 03/26/21 Soila Easton APRN.DAYTIME CAREGIVER [address] [place] [address] [facility] Internal [facility] 09/04/24 Collections Clerk Relationship Specialty Start Date End Date Annmarie Elkins MD [address] [place], [place] [address] PCP - General Internal Medicine 03/26/21 Rustam, Soila, COSMETIC CONSULTANT.DAYTIME CAREGIVER [address] [place], [place] [id number] [place] Work[employer] Internal Medicine 09/04/24 Team Status: Inactive Member Role Status Dates Dr. Annmarie Elkins MD Primary Care Provider Active Start: January 01, 2025 End: January 01, 2025 Leandro Sanchez MD Attending Provider Active Star t: January 01, 2025 End: January 01, 2025 Leandro Sanchez MD Referring Provider Active Star t: January 01, 2025 End: January 01, 2025 Leandro Sanchez MD Emergency Provider Active Star t: January 01, 2025 End: January 01, 2025 Team Status: Inactive Member Role Status Dates Dr. Annmarie Elkins MD Primary Care Provider Active Start: January 27, 2025 End: January 27, 2025 Dr. Franco Inman MD Attending Provider Active S tart: January 27, 2025 End: January 27, 2025 Dr. Franco Inman MD Emergency Provider Active S tart: January 27, 2025 End: January 27, 2025 Team Status: Inactive Member Role Status Dates Anat Gutiérrez WARNING COORDINATION METEOROLOGIST, WARNING COORDINATION METEOROLOGIST-C Referring Provider Active Start: February 08, 2025 End: February 08, 2025 Ani Eduardo WARNING COORDINATION METEOROLOGIST, WARNING COORDINATION METEOROLOGIST-C Attending Provider Active Start: February 08, 2025 End: February 08, 2025 Dr. Annmarie Elkins MD Primary Care Provider Active Start: February 08, 2025 End: February 08, 2025 Collections Clerk Relationship Specialty Start Date End Date Annmarie Elkins MD [address] [facility], [place] [address] PCP - General Internal Medicine 03/26/21 Soila Easton APRN.DAYTIME CAREGIVER [address] [facility], [place] [address] [phone] [place] Worker Internal Medicine 09/04/24 Collections Clerk Relationship Specialty Start Date End Date Annmarie Elkins MD [address] [facility], [place] [address] PCP - General Internal Medicine 03/26/21 Soila Easton APRN.DAYTIME CAREGIVER [address] [facility], [place] [address] [place] Worker Internal Medicine 09/04/24 Team Status: Inactive Member Role Status Dates Dr. Annmarie Elkins MD Primary Care Provider Active Start: February 26, 2025 End: February 26, 2025 Dr. Franco Inman MD Emergency Provider Active S tart: February 26, 2025 End: February 26, 2025 Collections Clerk Relationship Specialty Start Date End Date Annmarie Elkins MD [address] [place] [address] PCP - General Internal Medicine 03/26/21 Soila Easton APRN.DAYTIME CAREGIVER [address] [place] [address] [place] Worker Internal Medicine 09/04/24 Goals (unrecognized section and content) Goals may be documented in a n alternate sectionGoals may be documented in an alternate sectionGoals may be documented in an alternate sectionGoals may be documented in an alternate sectionGoals may be documented in an alternate sectionGoals may be documented in an alternate sectionGoals may be documented in an alternate section <item> Privacy Markings (unrecogniz ed section and content) Section Author: Eda Phan PROHIBITION ON REDISCLOSURE OF CONFIDENTIAL INFORMATION This notice accompanies a disclosure of information concerning a client made to you with the consent of such client. FOR RECORDS PERTAINING TO PATIENTS WHO ARE OR HAVE BEEN ENROLLED IN A CHEMICAL DEPENDENCY/SUBSTANCEABUSE PROGRAM, SOME INFORMATION MAY BE OMITTED. This clinical summary was aggregated from multiple sources. Caution should be exercised in using it in the provision of clinical care. This summary normalizes information from multiple sources, and as a consequence, information in this document may materially change the coding, format and clinical context of patient data. In addition, data may be omitted in some cases. CLINICAL DECISIONS SHOULD BE BASED ON THE PRIMARY CLINICAL RECORDS. [employer] [facility]. provides no warranty or guarantee of the accuracy or completeness of information in this document."
[2025-03-14] VITALS (16 sets, daily range): BP systolic 132–180; BP diastolic 62–79; PULSE 78–115; RESP 18–28; TEMP 36.4–37.3; O2SAT 86–95; BMI 25.0
[2025-03-14] MEDS: 0.9% Normal Saline (1000mL) 1,000 ML 125 ML IV ×3 (01:25→18:28)
[2025-03-14] MEDS: Morphine 4 MG/ML Syringe IV ×4 (05:09→20:14)
[2025-03-14] MEDS: 0.9% Saline Lock 10 ML Syringe IV ×4 (05:09→20:14)
[2025-03-14 06:57] LABS: Absolute Lymphocyte Count 1.97 X10^3/uL (0.83-4.51); Absolute Neutrophil Count 17.9 X10^3/uL (2.0-7.7); Basophil# 0.09 X10^3/uL; Basophil% 0.4 % (0-1); Eosinophil# 0.26 X10^3/uL; Eosinophils% 1.2 % (0-5); Hematocrit 33.5 % (37-47); Hemoglobin 9.9 g/dL (12.0-15.0); Lymphocyte # 1.97 X10^3/ul (0.83-4.51); Mean Corp Hgb Conc 29.6 g/dL (32-36); Mean Corpuscular Hgb 26.3 pg (27.0-32.0); Mean Corpuscular Volume 88.9 fL (81-99); Mean Platelet Vol. 10.8 fl (6.2-12.0); Monocyte# 1.41 X10^3/uL; Monocyte% 6.4 % (0-10); NRBC Flagged by Analyzer 0 % (0-5); Neutrophil # 17.93 X10^3/uL (2.7-7.7); Neutrophil % 81.7 % (47-70); Platelet Count 263 K/mm3 (150-450); RBC Distribution Width CV 14.8 % (11.6-14.6); RBC Distribution Width SD 48.7 fl (35.1-43.9); Red Blood Count 3.77 M/mm3 (4.2-5.4); White Blood Count 21.9 K/mm3 (4.4-11.0)
[2025-03-14] MEDS: Budesonide Respules 0.5 MG/2 ML AMPUL.NEB. INHALATION ×2 (07:10→19:40)
[2025-03-14] MEDS: Ipratropium/Albuterol Sulfate 3 ML AMPUL.NEB INHALATION ×3 (07:10→19:40)
[2025-03-14 07:58] LABS: Lipase 362 U/L (13-75)
[2025-03-14 08:08] LABS: ALB/GLOB Ratio 1.1 RATIO (0.9-2.4); AST(SGOT) 22 U/L (<=31); Alanine Aminotransfer ALT/SGPT 29 U/L (<=34); Albumin, Serum 3.5 g/dL (3.4-4.8); Alkaline Phosphatase 188 U/L (35-104); Anion Gap 15 (5-15); BUN 19 mg/dL (4-19); BUN/Creat Ratio 20.6 RATIO (10-20); Calcium,Total 9.1 mg/dL (7.6-11.0); Carbon Dioxide 24.2 mmol/L (21.0-32.0); Chloride 101 mmol/L (98-108); EST Glomerular Filtration Rate 73 (>60); Estimated Creatinine Clearance 59.11 ml/min (50-250); Globulin 3.1 g/dL (2.2-4.2); Glucose 64 mg/dL (70-99); Potassium 4.1 mmol/L (3.3-5.1); Protein, Total 6.6 g/dL (5.9-8.4); Sodium Level 140 mmol/L (133-145); Total Bilirubin 0.23 mg/dL (0.00-1.30)
--- NOTE | 2025-03-14 10:06 | CASEMGMT ---
SW met with patient as she triggered [facility] assessment for transportation, utilities, and food. SW introduced self and role at [facility]. Patient stated she does not need resources on any of those things. Patient said she will need a ride home from [place] as she is being transferred there. Patient denied need for any other resources. Joanne MACHADO
--- NOTE | 2025-03-14 10:25 | PN.HOSP_ITS ---
Subjective Subjective No issues overnight, leukocytosis is slowly improving as his lipase Objective Data Objective Data Vital Signs: Vital Signs Temp Pulse Resp BP Pulse Ox O2 Del Method O2 Flow Rate 98.5 F 106 H 20 H 152/70 H 93 Airvo 50 03/14/25 06:25 03/14/25 07:10 03/14/25 07:10 03/14/25 06:25 03/14/25 07:10 03/14/25 07:10 03/14/25 07:10 FiO2 76 03/14/25 07:10 Oxygen Flow Rate (L/min) 50 Oxygen Delivery Method Airvo Weight: 141 lb 1.533 oz Body Mass Index (BMI) 25.0 Intake & Output: Intake and Output for Last 24 Hours 03/13/25 03/14/25 03/15/25 03:59 03:59 03:59 Intake Total 1698.33 / 1698.33 1000 / 1000 Output Total 400 / 400 Balance 1698.33 / 1698.33 600 / 600 Lab / Micro Data 03/14/25 06:34 03/14/25 06:34 Labs: Laboratory Results - last 24 hr 03/13/25 12:16: WBC 29.2 H, RBC 4.17 L, Hgb 11.2 L, Hct 35.9 L, MCV 86.1, MCH 26.9 L, MCHC 31.2 L, RDW Std Deviation 46.1 H, RDW Coeff of Min 14.7 H, Plt Count 277, MPV 10.8, Immature Gran % (Auto) 1.200 H, Neut % (Auto) 83.5 H, Lymph % (Auto) 6.3 L, [place] % (Auto) 8.1, Eos % (Auto) 0.5, Baso % (Auto) 0.4, Absolute Neuts (auto) 24.3 H, Absolute Lymphs (auto) 1.85, Nucleated RBC % 0, Differential Comment SCANNED, Sodium 134, Potassium 3.6, Chloride 92 L, Carbon Dioxide 28.0, Anion Gap 14, BUN 14, Creatinine 0.84, Estim Creat Clear Calc 58.18, Est GFR (MDRD) Non-Af 79, BUN/Creatinine Ratio 16.9, Glucose 100 H, Calcium 9.5, Total Bilirubin 0.49, Direct Bilirubin 0.29, AST 21, ALT 38 H, A lkaline Phosphatase 149 H, Total Protein 7.0, Albumin 3.8, Globulin 3.2, Lipase 378 H 03/13/25 12:32: Lactic Acid < 1.0 03/13/25 12:58: Ethyl Alcohol < 10.1 03/13/25 14:11: Urine Color Straw, Urine Clarity Clear, Urine pH 7.0, Ur Specific [place] 1.005, Urine Protein 30 H, Urine Glucose (UA) Normal, Urine Ketones Negative, Urine Occult Blood Negative, Urine Nitrite Negative, Urine Bilirubin Negative, Urine Urobilinogen Normal, Ur Leukocyte Esterase 100 H, Urine RBC 0-5 SEEN, Urine WBC 5-10 SEEN, Ur Squamous Epith Cells 0-5 SEEN, Urine Bacteria 0 SEEN, Urine Mucus 0 SEEN 03/14/25 06:34: WBC 21.9 H, RBC 3.77 L, Hgb 9.9 L, Hct 33.5 L, MCV 88.9, MCH 26.3 L, MCHC 29.6 L D, RDW Std Deviation 48.7 H, RDW Coeff of Min 14.8 H, Plt Count 263, MPV 10.8, Immature Gran % (Auto) 1.300 H, Neut % (Auto) 81.7 H, Lymph % (Auto) 9.0 L, [place] % (Auto) 6.4, Eos % (Auto) 1.2, Baso % (Auto) 0.4, Absolute Neuts (auto) 17.9 H, Absolute Lymphs (auto) 1.97, Nucleated RBC % 0, Sodium 140, Potassium 4.1, Chloride 101, Carbon Dioxide 24.2, Anion Gap 15, BUN 19, Creatinine 0.90, Estim Creat Clear Calc 59.11, Est GFR (MDRD) Non-Af 73, B UN/Creatinine Ratio 20.6 H, Glucose 64 L, Calcium 9.1, Total Bilirubin 0.23, AST 22, ALT 29, Alkaline Phosphatase 188 H, Total Protein 6.6, Albumin 3.5, Globulin 3.1, Albumin/Globulin Ratio 1.1, Lipase 362 H Radiography Diagnostic Testing: Radiology Impression Abdomen/Pelvis CT 03/13/25 12:22 IMPRESSION: There is a stent in the body of the pancreas extending into the head and 2nd-3rd portion of the duodenum, unchanged. There is peripancreatic inflammation at the body and head, extending into the mesenteric root and right and left pericolic gutter, new compared to the prior. There is no organized or drainable collection. Pancreatic calcifications are present which are consistent with chronic pancreatitis, predominantly in the head, similar to the prior. There is a 0.6 cm solid pulmonary nodule in the right lung base, image 6/118, unchanged from the February 26, 2025 exam, new compared to the November 04, [address] correlation is recommended. Critical results were discussed with Dr. Rand by Dr. Grover at the time of dictation. Reading Location: [facility] Chest X-Ray 03/13/25 12:40 IMPRESSION: No evidence of acute cardiopulmonary pathology. Reading Location: [facility] Physical Exam Narrative General: Alert, Oriented x3, Cooperative, No apparent distress HEENT: Atraumatic, PERRLA, EOMI, Normocephalic Oral: Moist Mucosa Neck: Supple, No JVD Lungs: Diminished, Normal air movement, No rhonchi, No wheeze, No rales Cardiovascular: Regular rate, Regular Rhythm, Normal S1, Normal S2, No murmurs Abdomen: Soft, mildly tender epigastric region, Non-Distended, No Hepato- splenomegaly Extremities: No edema, Capillary Refill Less than 3 Seconds Skin: No rashes, No breakdown Musculoskeletal: No Tenderness to Palpation of Joints or Extremities Neurological: No focal neurological deficits, Motor Exam 5/5 strength throughout, Sensory exam intact to light touch and pain Psych/Mental Status: Normal Affect, Appropriate Assessment & Plan Assessment/Plan (1) Smoking greater than 30 pack years: (2) COPD (chronic obstructive pulmonary disease): QUALIFIERS: COPD type: emphysema Emphysema type: centrilobular Q ualified Code(s): J43.2 - Centrilobular emphysema (3) Abdominal pain: (4) Chronic pancreatitis: QUALIFIERS: Pancreatitis type: alcohol induced Qualified Code(s): K86.0 - 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 chronic pancreatitis PLAN: Plan 1. Acute on chronic pancreatitis ? She recently had a pancreatic stent placed at an outside facility show she is pending transfer back to [facility] ? Remain n.p.o. ? Continue with IV fluids ? Continue with pain medications ? There was some thought that maybe her leukocytosis was reactive so she is not on any antibiotics, and it is improving therefore we will just continue to monitor 2. Essential HTN/HLD ? Continue with her home blood pressure medications ? Can hold her statin ? Will monitor and make adjustments as necessary 3. COPD ? Not in exacerbation ? Can continue with her home inhalers 4. Anxiety/depression ? Stable ? Continue with her home medications 5. Neuropathy ? Can hold her gabapentin 6. GERD ? Stable ? Continue with Synthroid DVT: Lovenox Charges/Coding Visit Charges Inpatient E&M: 31776 Subs Hosp L2
[2025-03-14] MEDS: Enoxaparin 40 MG/0.4 ML Syringe SC (10:33)
[2025-03-14] MEDS: LORazepam 0.5 MG Tablet PO (14:12)
[2025-03-14] MEDS: ARIPiprazole 5 MG Tablet PO (14:13)
[2025-03-14] MEDS: Ondansetron 4 MG/2 ML Vial IV (20:13)
[2025-03-14] MEDS: Mirtazapine 15 MG Tablet 45 MG PO (21:04)
[2025-03-14] MEDS: Metoprolol Tartrate 25 MG Tablet PO (21:05)
[2025-03-15] VITALS (44 sets, daily range): BP systolic 48–196; BP diastolic 32–105; PULSE 82–135; RESP 16–26; TEMP 36.6–36.9; O2SAT 76–100
[2025-03-15] MEDS: 0.9% Saline Lock 10 ML Syringe IV ×4 (02:06→20:42)
[2025-03-15] MEDS: Morphine 4 MG/ML Syringe IV ×5 (02:06→15:11)
[2025-03-15] MEDS: 0.9% Normal Saline (1000mL) 1,000 ML 125 ML IV (02:28)
[2025-03-15] MEDS: Ipratropium/Albuterol Sulfate 3 ML AMPUL.NEB INHALATION ×3 (05:13→19:12)
[2025-03-15] MEDS: Budesonide Respules 0.5 MG/2 ML AMPUL.NEB. INHALATION ×2 (05:13→19:12)
[2025-03-15 06:05] LABS: Base Excess -3 mmol/L (-2 to +2); Bicarbonate 25.8 mmol/L (22-26); Blood Gas Specimen Type ART; Mode 60L; O2 Delivery Device AIRVO; PO2 67 mmHG (75-100); SITE R Brach; SO2 86 % (95-99); Total Carbon Dioxide 28 mmol/L; pCO2 71.3 mmHg (35-45); pH 7.17 (7.35-7.45)
--- NOTE | 2025-03-15 06:20 | RAD_ITS ---
PROCEDURE: CHEST 1 VIEW (PORTABLE) 03/15/2025 REASON FOR EXAM: DESATURATION INCREASED OXYGEN DEMAND TECHNIQUE: Frontal view of the chest. COMPARISON: 03/13/2025. FINDINGS: Interval appearance of moderate interstitial pulmonary congestion/edema. Interval appearance of minimal bilateral pleural effusions with passive atelectatic airspace disease of the lower lobes. Enlarged cardiac silhouette. Normal mediastinum and [place]. Normal visualized pulmonary arteries. Atheromatous plaques of the visualized aortic arch and descending thoracic aorta. Diffuse spondylosis of the visualized thoracic spine. Normal visualized ribs, clavicles. Degenerative joint disease. There is no demonstrated abnormality of the visualized soft tissue structures of the upper abdomen. RAD/Chest 1 View (Portable) IMPRESSION: Interval appearance of moderate interstitial pulmonary congestion/edema. Interval appearance of minimal bilateral pleural effusions with passive atelect atic airspace disease of the lower lobes. Enlarged cardiac silhouette. Reading Location[facility]
[2025-03-15 06:33] LABS: Absolute Neutrophil Count 17.4 X10^3/uL (2.0-7.7); Basophil# 0.09 X10^3/uL; Basophil% 0.4 % (0-1); Eosinophil# 0.06 X10^3/uL; Eosinophils% 0.3 % (0-5); Hematocrit 37.1 % (37-47); Hemoglobin 10.9 g/dL (12.0-15.0); Lymphocyte % 5.8 % (19-41); Mean Corp Hgb Conc 29.4 g/dL (32-36); Mean Corpuscular Hgb 26.3 pg (27.0-32.0); Mean Corpuscular Volume 89.4 fL (81-99); Mean Platelet Vol. 10.1 fl (6.2-12.0); Monocyte# 1.26 X10^3/uL; Monocyte% 6.1 % (0-10); NRBC Flagged by Analyzer 0 % (0-5); Neutrophil # 17.41 X10^3/uL (2.7-7.7); Neutrophil % 83.6 % (47-70); POSITIVE MORPHOLOGY YES; Platelet Count 315 K/mm3 (150-450); RBC Distribution Width CV 14.6 % (11.6-14.6); RBC Distribution Width SD 48.1 fl (35.1-43.9); Red Blood Count 4.15 M/mm3 (4.2-5.4); White Blood Count 20.8 K/mm3 (4.4-11.0)
[2025-03-15 06:48] LABS: AST(SGOT) 18 U/L (<=31); Alanine Aminotransfer ALT/SGPT 24 U/L (<=34); Albumin, Serum 3.5 g/dL (3.4-4.8); Alkaline Phosphatase 191 U/L (35-104); Anion Gap 14 (5-15); BUN 11 mg/dL (4-19); BUN/Creat Ratio 15.6 RATIO (10-20); Calcium,Total 9.4 mg/dL (7.6-11.0); Carbon Dioxide 22.5 mmol/L (21.0-32.0); Chloride 103 mmol/L (98-108); Creatinine, Serum 0.73 mg/dL (0.70-1.20); EST Glomerular Filtration Rate 94 (>60); Estimated Creatinine Clearance 72.87 ml/min (50-250); Globulin 3.4 g/dL (2.2-4.2); Glucose 83 mg/dL (70-99); Potassium 4.4 mmol/L (3.3-5.1); Protein, Total 6.9 g/dL (5.9-8.4); Sodium Level 140 mmol/L (133-145); Total Bilirubin 0.24 mg/dL (0.00-1.30)
[2025-03-15 07:24] LABS: Differential Indicated SCAN CRITERIA MET
[2025-03-15 07:32] LABS: Pro- Brain NATRIURETIC PEPTIDE 4257 pg/mL (<=900)
[2025-03-15 07:36] LABS: Allen Test Positive; Base Excess -3 mmol/L (-2 to +2); Bicarbonate 26.1 mmol/L (22-26); Blood Gas Specimen Type ART; Mode avaps; O2 Delivery Device BiPAP; PEEP 10; PO2 85 mmHG (75-100); RR 16; SITE R Radial; SO2 92 % (95-99); Total Carbon Dioxide 28 mmol/L; pCO2 75.9 mmHg (35-45); pH 7.14 (7.35-7.45)
--- NOTE | 2025-03-15 07:43 | NURSING ---
dr cobbonas text for repeat blood gas results and new cxr findings. iv fluids stopped and now order for iv lasix. pt resting in bed with eyes closed now with bipap maintained with avaps.
[2025-03-15] MEDS: Furosemide 40 MG/4 ML Vial IV ×2 (07:50→14:59)
--- NOTE | 2025-03-15 08:03 | NURSING ---
0750 dr galarza in to eval pt. pt anxious and talking thru bipap. instructed to not try talking and to get benefits of bipap. iv lasix given per order stat. pt wanting sister called and dr. galarza will do. hr 122 and bp up from anxiety
--- NOTE | 2025-03-15 08:13 | NURSING ---
[id number] dr orozco in to see pt as consulted and will talk with michell regarding need to move to icu
--- NOTE | 2025-03-15 08:20 | EX.PCM.CONCC ---
Assessment & Plan Assessment/Plan (1) Acute on chronic respiratory failure with hypoxia and hypercapnia: PLAN: Plan RECOMMENDATIONS: 1. Continue AVAPS therapy and obtain follow-up ABG in 2 hours. 2. Stop continuous IV fluids. 3. Agree with administration of diuretics. 4. Continue scheduled bronchodilators. 5. Low threshold for intubation if respiratory status worsens. 6. Awaiting transfer to [facility], pending bed availability. IMPRESSIONS: 1. Acute on chronic combined respiratory failure The patient initially presented to the hospital with worsening abdominal pain in the setting of acute on chronic pancreatitis following recent pancreatic stent placement. She has a known history of end-stage obstructive lung disease and chronic hypoxemic respiratory failure requiring supplemental oxygen at 5 L/min and noninvasive positive pressure ventilatory support at her baseline. The patient was initially placed on continuous IV fluids on account of her pancreatitis, which I suspect has led to hypervolemia and subsequent pulmonary edema, leading to decompensation in her respiratory status. At the present time, the patient is clinically stable on AVAPS therapy, which will be continued. Will plan to obtain follow-up ABG in 2 hours. The patient is mentating appropriately. In the interim, diuretics will be provided, as tolerated by hemodynamics and renal function. However, I would have a low threshold for intubation, given the patient's limited respiratory reserve. 2. Acute on chronic pancreatitis The patient was recently discharged on Thursday from [facility] following pancreatic stent placement. She presented again with worsening abdominal pain and elevated lipase and was subsequently placed on supplemental IV fluids, with transfer pending to [facility] Main [place]. 3. History of hypertension/hyperlipidemia/anxiety/depression/GERD/hypothyroidism/tobacco dependency Complicates care, management, recovery and prognosis. Continue home medications as indicated along with supportive care as noted above. This note was generated with Dialed[employer] dictation software. It may contain incorrect words, spelling, and punctuation that were not noted in checking the note before signing. HPI Consult Data Date of Consult: 03/15/25 HPI Narrative Reason for Consultation: Acute on chronic combined respiratory failure HPI Narrative: The patient is a 59-year-old female, with a history as outlined below, who presented to the emergency department on March 13 with worsening abdominal pain. The patient has a known history of end-stage COPD on maximum triple therapy inhaler regimen, chronic tobacco dependency and chronic hypoxemic respiratory failure with baseline oxygen requirement of 5 L/min and home use of a noninvasive ventilator. Her medical history is also significant for chronic pancreatitis from prior alcohol use with recent hospitalization at [facility] last week for pancreatic stent placement, performed by Dr. Jane Zavala. The patient was reportedly discharged home 5 days ago only to present to the emergency department once again with worsening epigastric abdominal pain. On presentation to the emergency department, the patient was documented to be afebrile but was notably tachycardic and tachypneic. Laboratory evaluation revealed a white blood cell count of 29,000. Hemoglobin and platelet count were stable. Chemistry profile was unremarkable. Lactate was within normal limits. Lipase was elevated at 378. CT abdomen/pelvis demonstrated a stent in the body of the pancreas with peripancreatic inflammation at the body and head which was new compared to the prior study. A 6 mm right lower lobe pulmonary nodule was also noted. In light of the patient's recent stent placement, the decision was made to proceed with transfer to [facility] for further management. Although the patient was accepted, there was no bed available, which prompted her admission here. The patient was subsequently placed on the progressive care unit with IV fluid hydration and pain control with IV morphine. On the morning of March 15, I was asked to evaluate the patient secondary to worsening respiratory status. ABG obtained on the morning of March 15 demonstrated a pH of 7.17 with a PCO2 of 71 and PO2 of 67. The patient was subsequently placed on AVAPS therapy with follow-up ABG demonstrating a pH of 7.14, PCO2 of 76 and pO2 of 85. The patient is currently documented to be overall net +3.8 L for the hospitalization. Follow-up chest x-ray from this morning demonstrated pulmonary vascular congestion. BNP is elevated at 4257. [facility] Medical History (Reviewed 02/08/25 @ 13:18 by Ani Eduardo PAPER MACHINE BACKTENDER, PAPER MACHINE BACKTENDER-C) Stenosis of left subclavian artery Pulmonary nodule Acute hypoxic respiratory failure Chronic pancreatitis Pancreatic stones HLD (hyperlipidemia) History of alcohol abuse Pneumonia Acute on chronic hypoxic respiratory failure Stage 3 severe COPD by GOLD classification Asthma COPD (chronic obstructive pulmonary disease) Arthritis History of back problems Anxiety and depression Chronic pancreatitis HPV (human papilloma virus) infection Anemia Tobacco abuse GERD (gastroesophageal reflux disease) Benign hypertension Home Medications ?Medication ?Instructions ?Recorded ?Last Taken ?Type cholecalciferol (vitamin D3) 50 50 mcg PO DAILY SUPPLEMENT 12/29/18 03/13/25 09:00 History mcg (2,000 unit) capsule 50 mcg aripiprazole 5 mg tablet (Abilify) 5 mg PO DAILY mood 01/22/21 03/13/25 09:00 History 5 mg mirtazapine 45 mg tablet 45 mg PO QHS sleep 01/16/22 03/12/25 21:00 History 45 mg metoprolol tartrate 25 mg tablet 25 mg PO BID 30 days #60 tabs 01/05/24 03/13/25 09:00 Rx 25 mg lisinopril 10 mg tablet 10 mg PO QDAY hypertension 01/26/24 03/13/25 09:00 History 10 mg albuterol sulfate 90 mcg/actuation 2 puff inhalation Q4H PRN 05/11/24 03/13/25 09:00 Rx aerosol inhaler (Ventolin HFA) shortness of breath or wheezing 2 puff #18 grams nicotine 14 mg/24 hr daily 1 patch transdermal ONCE #28 ea 12/14/24 Unknown Rx transdermal patch guaifenesin 100 mg/5 mL oral liquid 200 mg (10 mL) PO Q4H PRN 12/16/24 Unknown Rx congestion #473 mL budesonide 160 mcg-glycopyr 9 2 inh inhalation BID #10.7 grams 12/23/24 Unknown Rx mcg-formot 4.8 mcg/actuation HFA inhaler (Breztri Aerosphere) hydroxyzine HCl 25 mg tablet 25 mg PO TID antihistamine 12/23/24 03/12/25 22:00 History 25 mg meloxicam 7.5 mg tablet 7.5 mg PO QDAY pain 12/23/24 Unknown History ondansetron 4 mg disintegrating 4 mg PO Q6 PRN nausea/vomiting 12/23/24 Unknown History tablet Shower chair #1 ea 12/30/24 Unknown Rx ipratropium 0.5 mg-albuterol 3 mg 3 ml inhalation Q4H shortness of 01/04/25 03/13/25 09:00 Rx (2.5 mg base)/3 mL nebulization breath or wheezing #360 mL 3 mL soln gabapentin 300 mg capsule 300 mg PO BID nerve pain 02/08/25 03/13/25 09:00 History 300 mg ondansetron 4 mg disintegrating 4 mg PO Q8H PRN PRN Nausea #12 tabs 02/26/25 Unknown Rx tablet albuterol sulfate 2.5 mg/3 mL 2.5 mg continuous nebulization PRN 03/13/25 03/13/25 09:00 History (0.083 %) solution for nebulization COPD 2.5 mg amlodipine 5 mg tablet 5 mg PO DAILY hypertension 03/13/25 03/13/25 09:00 History 5 mg pantoprazole 40 mg tablet,delayed 40 mg PO DAILY acid reflux 03/13/25 03/13/25 09:00 History release 40 mg simvastatin 20 mg tablet 20 mg PO QHS high cholesterol 03/13/25 03/12/25 21:00 History 20 mg Allergy/AdvReac Type Severity Reaction Status Date / Time clindamycin Allergy Intermediate Hives Verified 02/26/25 13:57 Penicillins Allergy Hives Verified 02/26/25 13:57 sulfamethoxazole (From Allergy Other Verified 02/26/25 13:57 Bactrim) trimethoprim (From Bactrim) Allergy Other Verified 02/26/25 13:57 hydrocodone (From [place]) AdvReac Itching Verified 02/26/25 13:57 Family History (Reviewed 02/08/25 @ 13:18 by Ani Eduardo PAPER MACHINE BACKTENDER, PAPER MACHINE BACKTENDER-C) Mother Diabetes Hypertension Heart disease High cholesterol Arthritis Thyroid disorder Brother Hypertension Sister Cancer cervical Thyroid disorder Father Kidney disease Daughter Thyroid disorder Surgical History History of tubal ligation History of colonoscopy History of appendectomy Social History household members: family Smoking Status: Current every day smoker tobacco type: cigarettes Tobacco: How many years used: 30 second hand exposure: Yes alcohol intake: former details: Sober since 2020. substance use type: does not use caffeine: Yes ROS ROS Narrative 10 systems were reviewed with pertinent positives as noted in the HPI above. Physical Exam Const alert Constitutional Narrative: Currently tolerating AVAPS. General Appearance: cooperative HEENT normocephalic and head/scalp atraumatic Eyes PERRL and EOMs intact bilaterally Neck supple General: trachea midline Chest inspection of chest normal Resp Auscultation: rales and diminished lung sounds Cardio S1 normal heart sound and S2 normal heart sound Rate: tachycardic GI soft to palpation Extremity no clubbing, cyanosis or edema Skin no rashes or lesions noted Neuro CN's II-XII intact bilaterally and no focal motor deficits Psych Mood & Affect: anxious Lab / Micro Data 03/15/25 06:20 03/15/25 06:20 Labs: Laboratory Results - last 24 hr 03/15/25 06:13: NT pro BNP II 4257 H 03/15/25 06:20: WBC 20.8 H, RBC 4.15 L, Hgb 10.9 L, Hct 37.1, MCV 89.4, MCH 26.3 L, MCHC 29.4 L, RDW Std Deviation 48.1 H, RDW Coeff of Min 14.6, Plt Count 315, MPV 10.1, Immature Gran % (Auto) 3.800 H, Neut % (Auto) 83.6 H, Lymph % (Auto) 5.8 L, [place] % (Auto) 6.1, Eos % (Auto) 0.3, Baso % (Auto) 0.4, Absolute Neuts (auto) 17.4 H, Absolute Lymphs (auto) 1.20, Nucleated RBC % 0, Sodium 140, Potassium 4.4, Chloride 103, Carbon Dioxide 22.5, Anion Gap 14, BUN 11, Creatinine 0.73, Estim Creat Clear Calc 72.87, Est GFR (MDRD) Non-Af 94, BUN/Creatinine Ratio 15.6, Glucose 83, Calcium 9.4, Total Bilirubin 0.24, AST 18, ALT 24, Alkaline Phosphatase 191 H, Total Protein 6.9, Albumin 3.5, Globulin 3.4, Albumin/Globulin Ratio 1.0 ABG Data ABG results: ABG 03/15/25 03/15/25 06:01 07:31 Specimen Type ART ART Sample Site R Brach R Radial pH 7.17 L* 7.14 L* Bicarbonate Actual 25.8 26.1 H Total CO2 28 28 Base Excess -3 L -3 L O2 Saturation 86 L 92 L O2 % 92.0 100.0 ABG pCO2 71.3 H* 75.9 H* ABG pO2 67 L 85 Alexis Test N/A Positive Respiration Rate 16 O2 Delivery Device AIRVO BiPAP Vent Mode 60L avaps Tidal Volume 450.0 POC PEEP 10 Crit Call To/Read Back Yes Yes Blood Gas Notified Whom DR de GABRIELLE de gabrielle Blood Gas Notified Time 06:03:13 07:33:57 Imaging Radiology Impression Chest X-Ray 03/15/25 06:20 IMPRESSION: Interval appearance of moderate interstitial pulmonary congestion/edema. Interval appearance of minimal bilateral pleural effusions with passive atelectatic airspace disease of the lower lobes. Enlarged cardiac silhouette. Reading Location: [facility] Charges/Coding Visit Charges Inpatient E&M: 83124 Init Hosp L3
[2025-03-15] MEDS: Lisinopril 10 MG Tablet PO (09:20)
[2025-03-15] MEDS: Metoprolol Tartrate 25 MG Tablet PO (09:21)
[2025-03-15] MEDS: ARIPiprazole 5 MG Tablet PO (09:21)
[2025-03-15] MEDS: Pantoprazole Sodium 40 MG Tablet PO (09:21)
[2025-03-15] MEDS: amLODIPine 5 MG Tablet PO (09:21)
[2025-03-15] MEDS: Enoxaparin 40 MG/0.4 ML Syringe SC (09:22)
[2025-03-15 10:04] LABS: Procalcitonin 0.28 ng/mL (<=0.10)
[2025-03-15 10:51] LABS: Base Excess 0 mmol/L (-2 to +2); Bicarbonate 28.9 mmol/L (22-26); Blood Gas Specimen Type ART; Mode BiLevel; O2 Delivery Device BiPAP; PEEP 10; PO2 81 mmHG (75-100); RR 16; SITE R Brach; SO2 92 % (95-99); Time Given 10:48:00; Total Carbon Dioxide 31 mmol/L; pCO2 79.1 mmHg (35-45); pH 7.17 (7.35-7.45)
[2025-03-15 15:56] LABS: Base Excess -1 mmol/L (-2 to +2); Bicarbonate 28.5 mmol/L (22-26); Blood Gas Specimen Type ART; Mode Not entered; O2 Delivery Device BiPAP; PEEP 10; PO2 74 mmHG (75-100); RR 16; SITE R Brach; SO2 88 % (95-99); Time Given 15:53:31; Total Carbon Dioxide 31 mmol/L; pCO2 83.5 mmHg (35-45); pH 7.14 (7.35-7.45)
[2025-03-15] MEDS: dexMEDEtomidine 400 MCG in 0.9% Normal Saline (100mL Bag) 96 ML 8 MCG CONT INF (16:58)
[2025-03-15] MEDS: fentaNYL drip 100 ML 5 MCG CONT INF (16:58)
--- NOTE | 2025-03-15 17:00 | RAD_ITS ---
PROCEDURE: CXR FOR LINE PLACEMENT 03/15/2025 REASON FOR EXAM: ETT AND OG PLACEMENT TECHNIQUE: CXR FOR LINE PLACEMENT COMPARISON: 03/15/2025. FINDINGS: Endotracheal tube terminates 2 cm above the [place]. Orogastric tube terminates in the gastric fundus. Similar findings of edema. Slightly decreased bilateral pleural effusions. RAD/CXR for Line Placement IMPRESSION: As above. Reading Location: [id number]
--- NOTE | 2025-03-15 17:45 | NURSING ---
called [facility] main transfer line and gave update on patient condition. Will call ICU back with update
[2025-03-15 17:55] LABS: Base Excess 1 mmol/L (-2 to +2); Bicarbonate 29.3 mmol/L (22-26); Blood Gas Specimen Type ART; Mode AC; O2 Delivery Device Adult Vent; PEEP 12; PO2 49 mmHG (75-100); RR 16; SITE R Brach; SO2 72 % (95-99); Time Given 17:53:45; Total Carbon Dioxide 32 mmol/L; pCO2 77.2 mmHg (35-45); pH 7.19 (7.35-7.45)
[2025-03-15] MEDS: Norepinephrine 8 MG in 0.9% Normal Saline (250mL Bag) 242 ML 9.4 MG CONT INF (18:46)
--- NOTE | 2025-03-15 19:08 | PCM.PN.HOSP ---
Subjective Subjective Seems to have some respiratory distress this morning likely from volume overload so we will trial her on a dose of IV Lasix. Chest x-ray does show some pulmonary edema Objective Data Objective Data Vital Signs: Vital Signs Temp Pulse Resp BP Pulse Ox O2 Del Method O2 Flow Rate 97.8 F 92 16 61/50 L 96 Mechanical Ventilator 60 03/15/25 12:00 03/15/25 18:46 03/15/25 18:46 03/15/25 18:46 03/15/25 18:46 03/15/25 18:46 03/15/25 01:34 FiO2 100 03/15/25 18:46 Oxygen Flow Rate (L/min) 60 Oxygen Delivery Method Mechanical Ventilator Weight: 141 lb 1.533 oz Body Mass Index (BMI) 25.0 Intake & Output: Intake and Output for Last 24 Hours 03/14/25 03/15/25 03/16/25 03:59 03:59 03:59 Intake Total 1698.33 / 1698.33 3050 / 3050 670.83 / 670.83 Output Total 1100 / 1100 500 / 500 Balance 1698.33 / 1698.33 1950 / 1950 170.83 / 170.83 Lab / Micro Data 03/15/25 06:20 03/15/25 06:20 Labs: Laboratory Results - last 24 hr 03/15/25 06:13: NT pro BNP II 4257 H 03/15/25 06:20: WBC 20.8 H, RBC 4.15 L, Hgb 10.9 L, Hct 37.1, MCV 89.4, MCH 26.3 L, MCHC 29.4 L, RDW Std Deviation 48.1 H, RDW Coeff of Min 14.6, Plt Count 315, MPV 10.1, Immature Gran % (Auto) 3.800 H, Neut % (Auto) 83.6 H, Lymph % (Auto) 5.8 L, [place] % (Auto) 6.1, Eos % (Auto) 0.3, Baso % (Auto) 0.4, Absolute Neuts (auto) 17.4 H, Absolute Lymphs (auto) 1.20, Nucleated RBC % 0, Sodium 140, Potassium 4.4, Chloride 103, Carbon Dioxide 22.5, Anion Gap 14, BUN 11, Creatinine 0.73, Estim Creat Clear Calc 72.87, Est GFR (MDRD) Non-Af 94, BUN/Creatinine Ratio 15.6, Glucose 83, Calcium 9.4, Total Bilirubin 0.24, AST 18, ALT 24, Alkaline Phosphatase 191 H, Total Protein 6.9, Albumin 3.5, Globulin 3.4, Albumin/Globulin Ratio 1.0, Procalcitonin 0.28 H Micro: Microbiology 03/13/25 14:11 Urine, Clean Catch Urine Culture - Final Mixed Gram Positive Organisms ABG Data ABG results: ABG 03/15/25 03/15/25 03/15/25 06:01 07:31 10:46 Specimen Type ART ART ART Sample Site R Brach R Radial R Brach pH 7.17 L* 7.14 L* 7.17 L* Bicarbonate Actual 25.8 26.1 H 28.9 H Total CO2 28 28 31 Base Excess -3 L -3 L 0 O2 Saturation 86 L 92 L 92 L O2 % 92.0 100.0 100.0 ABG pCO2 71.3 H* 75.9 H* 79.1 H* ABG pO2 67 L 85 81 Alexis Test N/A Positive Respiration Rate 16 16 O2 Delivery Device AIRVO BiPAP BiPAP Vent Mode 60L avaps BiLevel Tidal Volume 450.0 450.0 POC PEEP 10 10 Crit Call To/Read Back Yes Yes Yes Blood Gas Notified Whom DR Aleshia Ordonez Blood Gas Notified Time 06:03:13 07:33:57 10:48:00 03/15/25 03/15/25 15:51 17:52 Specimen Type ART ART Sample Site R Brach R Brach pH 7.14 L* 7.19 L* Bicarbonate Actual 28.5 H 29.3 H Total CO2 31 32 Base Excess -1 1 O2 Saturation 88 L 72 L O2 % 100.0 100.0 ABG pCO2 83.5 H* 77.2 H* ABG pO2 74 L 49 L Alexis Test Respiration Rate 16 16 O2 Delivery Device BiPAP Adult Vent Vent Mode Not entered AC Tidal Volume 450.0 400.0 POC PEEP 10 12 Crit Call To/Read Back Yes Yes Blood Gas Notified Whom WES HARVEY Blood Gas Notified Time 15:53:31 17:53:45 Radiography Diagnostic Testing: Radiology Impression Chest X-Ray 03/15/25 06:20 IMPRESSION: Interval appearance of moderate interstitial pulmonary congestion/edema. Interval appearance of minimal bilateral pleural effusions with passive atelectatic airspace disease of the lower lobes. Enlarged cardiac silhouette. [id number] 03/15/25 17:00 IMPRESSION: As above. Reading Location: [id number] Physical Exam Narrative General: Alert, Oriented x3, Cooperative, moderate respiratory distress HEENT: Atraumatic, PERRLA, EOMI, Normocephalic Oral: Moist Mucosa Neck: Supple, No JVD Lungs: Diminished, Normal air movement, No rhonchi, No wheeze, rales, tachypneic though somewhat conversational on BiPAP Cardiovascular: Regular rate, Regular Rhythm, Normal S1, Normal S2, No murmurs Abdomen: Soft, mildly tender epigastric region, Non-Distended, No Hepato-splenomegaly Extremities: No edema, Capillary Refill Less than 3 Seconds Skin: No rashes, No breakdown Musculoskeletal: No Tenderness to Palpation of Joints or Extremities Neurological: No focal neurological deficits, moves all extremities, Sensory exam intact to light touch and pain Psych/Mental Status: Anxious Assessment & Plan Assessment/Plan (1) Smoking greater than 30 pack years: (2) COPD (chronic obstructive pulmonary disease): QUALIFIERS: COPD type: emphysema Emphysema type: centrilobular Qualified Code(s): J43.2 - Centrilobular emphysema (3) Abdominal pain: (4) Chronic pancreatitis: QUALIFIERS: Pancreatitis type: alcohol induced Qualified Code(s): K86.0 - 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 chronic pancreatitis PLAN: Plan 1. Acute on chronic pancreatitis with acute hypoxic and hypercapnic respiratory failure secondary to volume overload from the treatment for her pancreatitis with respiratory acidosis ? She recently had a pancreatic stent placed at an outside facility show she is pending transfer back to [facility] ? Remain n.p.o. ? Will hold IV fluids ? Continue with pain medications ? There was some thought that maybe her leukocytosis was reactive so she is not on any antibiotics, and it is improving therefore we will just continue to monitor ? She was placed on BiPAP and an ABG was obtained at 6:00 this morning which showed a PCO2 of 71 and a pH of 7.17, will trial a dose of IV Lasix and consult pulmonology for assistance ? Will repeat ABG 2. Essential HTN/HLD ? Continue with her home blood pressure medications ? Can hold her statin ? Will monitor and make adjustments as necessary 3. COPD ? Not in exacerbation ? Can continue with her home inhalers 4. Anxiety/depression ? Stable ? Continue with her home medications 5. Neuropathy ? Can hold her gabapentin 6. GERD ? Stable ? Continue with Synthroid DVT: Lovenox Charges/Coding Visit Charges Inpatient E&M: 40535 Subs Hosp L3
--- NOTE | 2025-03-15 19:12 | PCM.PN.BLA ---
Progress Note Throughout the day her pCO2 continued to climb despite AVAPS and her pH stayed stable however she started having some altered mentation which is different from this morning so we elected to intubate. I discussed the risks and benefits with her sister who agreed with the intubation at this time. She has a chronic respiratory failure with needing 5 L nasal cannula at baseline so she has always been concerned that she would need to be intubated especially since she continues to smoke while on oxygen. I attempted to have this conversation with Gracie however she while would open her eyes to stimulation but not carry on a conversation with me. I feel at this time that intubation is emergent. Will also call the [facility] transfer line to change designation to critical care patient to see if this expedites transfer.
--- NOTE | 2025-03-15 19:14 | PCM.PN.BLA ---
Progress Note Intubation Indication: Acute hypoxic and hypercapnic respiratory failure Consent was obtained from: Emergent The patient was placed in the appropriate sniffing position. Preoxygenated sedation via BiPAP was provided for a minimum of 3 minutes. The patient had continuous cardiac as well as pulse oximetry monitoring during the procedure. Procedure sedation was provided by the administration of Precedex and fentanyl. Direct laryngoscopy was then performed using a number GlideScope, which revealed a grade 2B view. A 7.5 mm endotracheal tube was visualized advancing between the cords to the level of 23 cm at the lip. The stylette was then removed and discarded. Tube placement was confirmed by fogging in the tube along with equal and bilateral breath sounds. Colorimetric change was visualized on the CO2 meter. The cuff was then inflated and the tube secured using a commercially available device. A good pulse oximetry waveform was seen on the monitor throughout the procedure. A portable chest x-ray has been ordered to confirm appropriate placement. Given the difficulty of the view, the procedure was a little traumatic leading to bleeding of less than 1 cc. Procedures Hospitalists Procedures: 21013 Insert Emergency Airway
--- NOTE | 2025-03-15 19:18 | PCM.PN.BLA ---
Progress Note After intubation she was found to be hypoxic so we tried to increase PEEP however this led to some hypotension given her white count as well as the thick sputum during suction I elected to start her on meropenem as well as Levophed though the etiology of her hypotension is difficult to ascertain at the moment, it may be septic shock and I am limited in terms of IV fluids and that she cannot receive any given the pulmonary edema which led to her respiratory failure therefore we will continue with just Levophed. I discussed the case with [facility] who has accepted the patient in transfer and they did indicate that they had beds so it is a possibility of transfer this evening. Will attempt to get further access and may need to place a central line if there is a delay in transfer depending on how well she tolerates peripheral Levophed. Sputum culture was sent and will obtain blood cultures.
[2025-03-15] MEDS: 0.9% Normal Saline (500mL Bag) 500 ML 999 ML IV (20:20)
--- NOTE | 2025-03-15 20:37 | PCM.PN.BLA ---
Progress Note Attempted central line unsuccessful, good visualization of the jugular vein on the right however could not pass guidewire without hitting a blockage, the wire was retracted and bent. Overall 2 attempts were made both unsuccessful. Will attempt 500 cc fluid bolus given that she was given 80 mg of IV Lasix today to try to support her blood pressure she is currently on 10 of Levophed peripherally. Plan discharge to tertiary center within the hour.
[2025-03-15] MEDS: Meropenem 1 GM in 0.9% Normal Saline (100mL MB+) 100 ML IV (20:41)
[2025-03-15] MEDS: 0.9% Normal Saline (250mL Bag) 250 ML 15 ML IV (20:42)
[2025-03-15 21:01] LABS: Allen Test Positive; Base Excess 0 mmol/L (-2 to +2); Bicarbonate 26.8 mmol/L (22-26); Blood Gas Specimen Type ART; Mode AC; O2 Delivery Device ET Tube; PEEP 12; PO2 75 mmHG (75-100); RR 16; SITE R Radial; SO2 92 % (95-99); Total Carbon Dioxide 29 mmol/L; pCO2 59.5 mmHg (35-45); pH 7.26 (7.35-7.45)
--- NOTE | 2025-03-15 21:03 | NURSING ---
Dr. Izquierdo at bedside for central line placement. Sister Domonique Augustine signed consent form. MD unable to place line. Two more peripheral lines started. 500 cc bolus started per MD order.
--- NOTE | 2025-03-15 21:59 | NURSING ---
Report given to [facility] Transport team. Pt loaded onto cot. Belongings sent with patient's sister Domonique. Report given to RN at [facility].
--- NOTE | 2025-03-16 07:31 | DS.PCM_ITS ---
Providers Date of Admission: 03/13/25 Primary Care Physician: Dr. Annmarie Hay MD Consultations 03/15/25 08:06 Consult: [employer] / Pulmonary Medicine Routine Consulting Provider: Intensivists/Pulmonary Med Reason for Consult: increase work of breathing EMERGENT Consult: Yes Notified: Yes Date Notified: 03/15/25 Time Notified: 08:07 Method of Notification: ED Physician Initiated 03/15/25 09:36 Consult: [employer] / Pulmonary Medicine Routine Consulting Provider: Intensivists/Pulmonary Med Reason for Consult: Resp failure EMERGENT Consult: No Notified: Yes Date Notified: 03/15/25 Time Notified: 08:16 Method of Notification: Verbal Reason For Visit: PANCREATITIS, COMPLICATION WITH STENT Diagnosis Discharge Diagnosis (1) Smoking greater than 30 pack years: Status: Chronic Code(s): F17.210 - Nicotine dependence, cigarettes, uncomplicated (2) COPD (chronic obstructive pulmonary disease): Status: Chronic Code(s): J44.9 - Chronic obstructive pulmonary disease, unspecified Qualifiers: COPD type: emphysema Emphysema type: centrilobular Qualified Code(s): J43.2 - Centrilobular emphysema (3) Abdominal pain: Status: Acute Code(s): R10.9 - Unspecified abdominal pain (4) Chronic pancreatitis: Status: Chronic Code(s): K86.1 - Other chronic pancreatitis Qualifiers: Pancreatitis type: alcohol induced Qualified Code(s): K86.0 - Alcohol- induced chronic pancreatitis Medications at Discharge Home Medications cholecalciferol (vitamin D3) 50 mcg (2,000 unit) capsule 50 mcg PO DAILY SUPPLEMENT 12/29/18 aripiprazole 5 mg tablet (Abilify) 5 mg PO DAILY mood 01/22/21 mirtazapine 45 mg tablet 45 mg PO QHS sleep 01/16/22 metoprolol tartrate 25 mg tablet 25 mg PO BID 30 days #60 tabs 01/05/24 lisinopril 10 mg tablet 10 mg PO QDAY hypertension 01/26/24 albuterol sulfate 90 mcg/actuation aerosol inhaler (Ventolin HFA) 2 puff inhalation Q4H PRN shortness of breath or wheezing #18 grams 05/11/24 nicotine 14 mg/24 hr daily transdermal patch 1 patch transdermal ONCE #28 ea 12/14/24 guaifenesin 100 mg/5 mL oral liquid 200 mg (10 mL) PO Q4H PRN congestion #473 mL 12/16/24 budesonide 160 mcg-glycopyr 9 mcg-formot 4.8 mcg/actuation HFA inhaler (Breztri Aerosphere) 2 inh inhalation BID #10.7 grams 12/23/24 hydroxyzine HCl 25 mg tablet 25 mg PO TID antihistamine 12/23/24 meloxicam 7.5 mg tablet 7.5 mg PO QDAY pain 12/23/24 ondansetron 4 mg disintegrating tablet 4 mg PO Q6 PRN nausea/vomiting 12/23/24 Shower chair #1 ea 12/30/24 ipratropium 0.5 mg-albuterol 3 mg (2.5 mg base)/3 mL nebulization soln 3 ml inhalation Q4H shortness of breath or wheezing #360 mL 01/04/25 gabapentin 300 mg capsule 300 mg PO BID nerve pain 02/08/25 ondansetron 4 mg disintegrating tablet 4 mg PO Q8H PRN PRN Nausea #12 tabs 02/26/25 albuterol sulfate 2.5 mg/3 mL (0.083 %) solution for nebulization 2.5 mg continuous nebulization PRN COPD 03/13/25 amlodipine 5 mg tablet 5 mg PO DAILY hypertension 03/13/25 pantoprazole 40 mg tablet,delayed release 40 mg PO DAILY acid reflux 03/13/25 simvastatin 20 mg tablet 20 mg PO QHS high cholesterol 03/13/25 Hospital Course Operations None Procedures Intubation Summary of Care Provided Minutes Spent on Discharge: 36 Hospital Course: Per HPI: MIR KANG, is a 59 F who presents to the emergency room with chief complaint of abdominal pain. Patient has significant past medical history of hypertension, hyperlipidemia, COPD on 5 L nasal cannula at baseline, chronic pancreatitis with history of cholecystectomy and appendectomy. Patient states she has chronic pancreatitis secondary to alcohol abuse and has been sober for the past several months. She was recently admitted to [facility] and treated by GI specialist Dr. Portillo. She had a surgery performed for her pancreatitis and a stent was placed this past Thursday. Patient states she has had worsening epigastric abdominal pain since discharge on Thursday. She denies fever, chills, shortness of breath, chest pain, diarrhea constipation or dysuria. Patient has been accepted to [facility] for transfer from the emergency room, however, a bed is not available this evening and patient will be admitted temporarily in our facility while pending transfer to tertiary care facility to address pancreatic stent and acute pancreatitis. Hospital Course: 1. Acute on chronic pancreatitis progressing to respiratory acidosis due to acute on chronic hypoxic and hypercapnic respiratory failure from volume overload with pulmonary edema?59-year-old female presented to the hospital with abdominal pain and initially assumed to be pancreatitis as she had a procedure 3 days prior to admission at an outside hospital with pancreatic duct stent placement. In the process of managing her pancreatitis she was given a large volume of fluids which led to respiratory failure. On 03/15/2025 she was given a dose of Lasix in the morning however this did not help significantly so she was transferred to the ICU while on AVAPS. During the day her pCO2 continued to climb and ultimately her mentation got worse. She did get an extra dose of Lasix at 2:30 in the afternoon as well for diuresis. At 1630 I discussed with family the need to intubate her given her climbing pCO2 as well as her altered mentation. Her sister who is her POA per family designation agreed to the intubation. She was intubated at 1651 and placed on the ventilator. Her blood pressures did drop so she was started on peripheral Levophed and attempt for central line unfortunately was unsuccessful. Her blood pressure did get a little bit supported with reinitiation of gentle IV fluids, she was given a 500 cc bolus and then placed on a 75 mL/h drip of normal saline. She was accepted to [facility] and she was transported out of the hospital at 2159. 2. Essential hypertension, hyperlipidemia, COPD with chronic hypoxia needing 5 L nasal cannula, anxiety, depression, neuropathy, GERD her chronic medical conditions which complicate her care. Her home medications were continued where appropriate Physical Exam Const General Appearance: intubated and patient mechanically ventilated HEENT normocephalic Eyes PERRL and conjunctivae normal Neck supple and no JVD Resp normal respiratory effort, no retractions and no use of accessory muscles Auscultation: wheezes; Negative for crackles, rales or rhonchi Cardio regular rate, regular rhythm, S1 normal heart sound, S2 normal heart sound and no murmurs GI soft to palpation and non-distended; Negative for hepatosplenomegaly Extremity no clubbing, cyanosis or edema Skin no rashes or lesions noted Neuro Sensorium / Orientation: sedated on vent Psych Appearance: intubated Weight / BMI Weight Weight: 141 lb 1.533 oz Body Mass Index (BMI) 25.0 ABG / Lab / Microbiology Data 03/15/25 06:20 03/15/25 06:20 Laboratory: Laboratory Results - last 24 hr 03/15/25 06:13: NT pro BNP II 4257 H 03/15/25 06:20: Procalcitonin 0.28 H Microbiology: Microbiology 03/13/25 14:11 Urine, Clean Catch Urine Culture - Final Mixed Gram Positive Organisms ABG: ABG 03/15/25 03/15/25 03/15/25 07:31 10:46 15:51 Specimen Type ART ART ART Sample Site R Radial R Brach R Brach pH 7.14 L* 7.17 L* 7.14 L* Bicarbonate Actual 26.1 H 28.9 H 28.5 H Total CO2 28 31 31 Base Excess -3 L 0 -1 O2 Saturation 92 L 92 L 88 L O2 % 100.0 100.0 100.0 ABG pCO2 75.9 H* 79.1 H* 83.5 H* ABG pO2 85 81 74 L Alexis Test Positive Respiration Rate 16 16 16 O2 Delivery Device BiPAP BiPAP BiPAP Vent Mode avaps BiLevel Not entered Tidal Volume 450.0 450.0 450.0 POC PEEP 10 10 10 Crit Call To/Read Back Yes Yes Yes Blood Gas Notified Whom Ordonez BROWN Blood Gas Notified Time 07:33:57 10:48:00 15:53:31 03/15/25 03/15/25 17:52 20:58 Specimen Type ART ART Sample Site R Brach R Radial pH 7.19 L* 7.26 L Bicarbonate Actual 29.3 H 26.8 H Total CO2 32 29 Base Excess 1 0 O2 Saturation 72 L 92 L O2 % 100.0 90.0 ABG pCO2 77.2 H* 59.5 H ABG pO2 49 L 75 Alexis Test Positive Respiration Rate 16 16 O2 Delivery Device Adult Vent ET Tube Vent Mode AC AC Tidal Volume 400.0 450.0 POC PEEP 12 12 Crit Call To/Read Back Yes Blood Gas Notified Whom BROWN Blood Gas Notified Time 17:53:45 Radiography Diagnostic Testing: Radiology Impression Chest X-Ray 03/15/25 17:00 IMPRESSION: As above. Reading Location: [place] [address] D/C Instructions DC O2, CPAP, BIPAP Needs Home O2 Discharge instructions: No Meaningful Use Info Meaningful Use Meaningful Use Diagnoses (Choose all that apply): None applicable Ischemic Stroke Statin Dosing Therapy Reference: STATIN DOSE THERAPY REFERENCE: * Patients > 75 years receive moderate or high dose statin therapy. * Patients 75 years or YOUNGER should receive HIGH intensity statin dose unless contraindicated. You will be required to document reason for non-treatment if statin daily dose does not meet guidelines. HIGH DOSE STATIN THERAPY DAILY Atorvastatin > than or = to 40 mg Rosuvastatin > than or = to 20 mg Amlodipine + Atorvastatin > than or = to 2.5/40 mg Ezetimibe + Simvastatin 10/80 mg Simvastatin 80mg Discharge Plan Admission Admit Date/Time: 03/13/25 23:28 Attending Provider: Sudhir Izquierdo Primary Care Provider: Annmarie Hay Consulting Providers: Pako Fernández; Elton Abraham; Ryan Ortega; Freddie Perdue; Gonzalo Sebastian; Jackson Britt; Jacky Perez; Cricket Hoover; Rajni Avalos; Kahlil Jeff; Warren Anguiano; Jaime Rey; Maria Antonia Salinas; Michael Mistry; Sylvia Hurt; Jhony Arango; Alex Montesinos; Franki Jackson; Hever Marrufo; Gonzalo Cruz; Nenita Armando; Aris Black; Estevan Govea; Demarco Cervantes Discharge Orders/Prescriptions Prescriptions: No Action mirtazapine 45 mg tablet 45 mg PO QHS lisinopril 10 mg tablet 10 mg PO QDAY albuterol sulfate [Ventolin HFA] 90 mcg/actuation HFA aerosol inhaler 2 puff INHALATION Q4H PRN (Reason: shortness of breath or wheezing) Qty: 18 11RF gabapentin 300 mg capsule 300 mg PO BID meloxicam 7.5 mg tablet 7.5 mg PO QDAY ondansetron 4 mg tablet,disintegrating 4 mg PO Q6 PRN (Reason: nausea/vomiting) hydroxyzine HCl 25 mg tablet 25 mg PO TID Breztri Aerosphere 160-9-4.8 mcg/actuation HFA aerosol inhaler 2 inh inhalation BID Qty: 10.7 6RF cholecalciferol (vitamin D3) 2,000 UNIT capsule 50 mcg PO DAILY aripiprazole [Abilify] 5 mg Tablet 5 mg PO DAILY metoprolol tartrate 25 mg Tablet 25 mg PO BID 30 Days Qty: 60 0RF Rx Instructions: Hold for heart less than 50 or systolic blood pressure less than 100 mmHg. albuterol sulfate 2.5 mg /3 mL (0.083 %) solution for nebulization 2.5 mg continuous nebulization PRN Patient Comments: Use 3 mL via nebulizer one time only for 1 dose. Use over 5-15minutes. amlodipine 5 mg tablet 5 mg PO DAILY pantoprazole 40 mg tablet,delayed release (DR/EC) 40 mg PO DAILY simvastatin 20 mg tablet 20 mg PO QHS ondansetron 4 mg tablet,disintegrating 4 mg PO Q8H PRN PRN (Reason: Nausea) Qty: 12 0RF nicotine 14 mg/24 hr patch 24 hour 1 patch transdermal ONCE Qty: 28 1RF guaifenesin 100 mg/5 mL liquid 200 mg PO Q4H PRN (Reason: congestion) Qty: 473 0RF (DME) Shower chair See Rx Instructions .Route .MEDSUPPLY Qty: 1 0RF Rx Instructions: As directed ipratropium-albuterol 0.5 mg-3 mg(2.5 mg base)/3 mL solution for nebulization 3 ml inhalation Q4H Qty: 360 11RF Referrals / Follow Up: Annmarie Hay MD [Primary Care Provider] - Disposition Disposition (needs filled in before D/C Order can be placed): Acute Care Hospital Charges/Coding Visit Charges Inpatient E&M: 63471 Disch Hosp >30min
== END 2025-03-15 21:58 | disposition short-term general hospital (02) | DRG 282 ==
LOC: ED 12:30 → PCU 23:36 → ICU 03-15 09:25
PROVIDERS: Internal Medicine; Internal Medicine Critical Care Medicine; Admitting Provider Family Medicine; Emergency Provider Surgery; PCP Internal Medicine; Visit Provider Family Medicine
DX: K85.20 Alcohol induced acute pancreatitis without necrosis or infection (principal); J96.22 Acute and chronic respiratory failure with hypercapnia; J96.21 Acute and chronic respiratory failure with hypoxia; J43.2 Centrilobular emphysema; D64.9 Anemia, unspecified; I10 Essential (primary) hypertension; F32.A Depression, unspecified; K86.0 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 chronic pancreatitis; E87.29 Other acidosis; F17.210 Nicotine dependence, cigarettes, uncomplicated; E78.5 Hyperlipidemia, unspecified; K21.9 Gastro-esophageal reflux disease without esophagitis; G62.9 Polyneuropathy, unspecified; F41.9 Anxiety disorder, unspecified; E87.70 Fluid overload, unspecified; J44.9 Chronic obstructive pulmonary disease, unspecified; J81.1 Chronic pulmonary edema; K86.1 Other chronic pancreatitis; R91.1 Solitary pulmonary nodule; Z98.51 Tubal ligation status; Z90.49 Acquired absence of other specified parts of digestive tract; Z98.890 Other specified postprocedural states
CPT/HCPCS: 31500; 31720; 36415; 36600; 71045; 71046; 74177; 80048; 80053; 80076; 81001; 82077; 82803; 83605; 83690; 83880; 84145; 85025; 87070; 87077; 87086; 87088; 87186; 87205; 94002; 94003; 94640; 94660; 94762; 97802; 99252; 99283; J2185; Q9967; A4216; C1751; G0463; J1938; J2405

== ENCOUNTER 2025-04-15 22:48 | Inpatient (IN) | payer MEDICAID, SELFPAY ==
[2025-04-15 22:49] VITALS: BP 122/86; PULSE 102; RESP 24; TEMP 36.3; O2SAT 92; BMI 22.4
--- NOTE | 2025-04-15 23:16 | ED.VIS.GI ---
HPI HPI - GI History of Present Illness Chief Complaint: Abd Pain Informant: patient Narrative Narrative: 59-year-old female presenting with abdominal pain. It started last night in the middle of the night, it gradually worsened all day today and has become quite severe. She feels better when she lies down but it is much worse when she sits up and forward. It is kind of everywhere but the majority of it is right upper quadrant. She had a pancreatic stent put in on March 10 at [facility], it was placed due to chronic pancreatitis and stones in the duct, many of which were removed during that procedure. She states she has been having discomfort like this off-and-on since then but not this severe. She did not eat any fat or meat last night, she had some fruit and nothing else before going to bed later. No nausea or vomiting. It does radiate into her back a little. No fevers or chills. No abnormal bowel movements or urination since then. Has had no alcohol recently. Has also not had a cigarette in over 2 weeks. [facility] Medical History Encounter for replacement of pancreatic stent Stenosis of left subclavian artery Pulmonary nodule Acute hypoxic respiratory failure Chronic pancreatitis Pancreatic stones HLD (hyperlipidemia) History of alcohol abuse Pneumonia Acute on chronic hypoxic respiratory failure Stage 3 severe COPD by GOLD classification Asthma COPD (chronic obstructive pulmonary disease) Arthritis History of back problems Anxiety and depression Chronic pancreatitis HPV (human papilloma virus) infection Anemia Tobacco abuse GERD (gastroesophageal reflux disease) Benign hypertension Home Medications ?Medication ?Instructions ?Recorded ?Last Taken ?Type cholecalciferol (vitamin D3) 50 50 mcg PO DAILY SUPPLEMENT 12/29/18 03/13/25 09:00 History mcg (2,000 unit) capsule 50 mcg aripiprazole 5 mg tablet (Abilify) 5 mg PO DAILY mood 01/22/21 03/13/25 09:00 History 5 mg mirtazapine 45 mg tablet 45 mg PO QHS sleep 01/16/22 03/12/25 21:00 History 45 mg metoprolol tartrate 25 mg tablet 25 mg PO BID 30 days #60 tabs 01/05/24 03/13/25 09:00 Rx 25 mg lisinopril 10 mg tablet 10 mg PO QDAY hypertension 01/26/24 03/13/25 09:00 History 10 mg albuterol sulfate 90 mcg/actuation 2 puff inhalation Q4H PRN 05/11/24 03/13/25 09:00 Rx aerosol inhaler (Ventolin HFA) shortness of breath or wheezing 2 puff #18 grams nicotine 14 mg/24 hr daily 1 patch transdermal ONCE #28 ea 12/14/24 Unknown Rx transdermal patch guaifenesin 100 mg/5 mL oral liquid 200 mg (10 mL) PO Q4H PRN 12/16/24 Unknown Rx congestion #473 mL hydroxyzine HCl 25 mg tablet 25 mg PO TID antihistamine 12/23/24 03/12/25 22:00 History 25 mg meloxicam 7.5 mg tablet 7.5 mg PO QDAY pain 12/23/24 Unknown History ondansetron 4 mg disintegrating 4 mg PO Q6 PRN nausea/vomiting 12/23/24 Unknown History tablet Shower chair #1 ea 12/30/24 Unknown Rx ipratropium 0.5 mg-albuterol 3 mg 3 ml inhalation Q4H shortness of 01/04/25 03/13/25 09:00 Rx (2.5 mg base)/3 mL nebulization breath or wheezing #360 mL 3 mL soln gabapentin 300 mg capsule 300 mg PO BID nerve pain 02/08/25 03/13/25 09:00 History 300 mg ondansetron 4 mg disintegrating 4 mg PO Q8H PRN PRN Nausea #12 tabs 02/26/25 Unknown Rx tablet albuterol sulfate 2.5 mg/3 mL 2.5 mg continuous nebulization PRN 03/13/25 03/13/25 09:00 History (0.083 %) solution for nebulization COPD 2.5 mg amlodipine 5 mg tablet 5 mg PO DAILY hypertension 03/13/25 03/13/25 09:00 History 5 mg pantoprazole 40 mg tablet,delayed 40 mg PO DAILY acid reflux 03/13/25 03/13/25 09:00 History release 40 mg simvastatin 20 mg tablet 20 mg PO QHS high cholesterol 03/13/25 03/12/25 21:00 History 20 mg budesonide 160 mcg-glycopyr 9 2 inh inhalation BID #10.7 grams 04/10/25 Unknown Rx mcg-formot 4.8 mcg/actuation HFA inhaler (Breztri Aerosphere) hydroxyzine pamoate 25 mg capsule 25 mg PO QDAY PRN 04/10/25 Unknown History tramadol 50 mg tablet 50 mg PO Q6 PRN pain 04/10/25 Unknown History Allergy/AdvReac Type Severity Reaction Status Date / Time clindamycin Allergy Intermediate Hives Verified 04/15/25 22:49 Penicillins Allergy Hives Verified 04/15/25 22:49 sulfamethoxazole (From Allergy Other Verified 04/15/25 22:49 Bactrim) trimethoprim (From Bactrim) Allergy Other Verified 04/15/25 22:49 hydrocodone (From [place]) AdvReac Itching Verified 04/15/25 22:49 Family History Mother Diabetes Hypertension Heart disease High cholesterol Arthritis Thyroid disorder Brother Hypertension Sister Cancer cervical Thyroid disorder Father Kidney disease Daughter Thyroid disorder Surgical History History of tubal ligation History of colonoscopy History of appendectomy Social History household members: family Smoking Status: Former smoker quit date: 03/25/25 Tobacco: How many years used: 30 second hand exposure: Yes alcohol intake: former details: Sober since 2020. substance use type: does not use caffeine: Yes ROS ROS ED Constitutional Constitutional ED: Denies chills or fever(s) Eyes Eyes: Denies change in vision or diplopia ENT ENT ED: Denies rhinorrhea or sore throat Cardiovascular Cardiovascular: Denies chest pain or palpitations Respiratory/Chest Respiratory/Chest: Reports cough and other Details: chronic cough, not acutely worse ; Denies dyspnea Gastrointestinal Gastrointestinal: Reports abdominal pain; Denies diarrhea, melena, nausea or vomiting Genitourinary Genitourinary ED: Denies dysuria or hematuria Musculoskeletal Musculoskeletal: Reports back pain; Denies neck pain Integumentary Denies abscess or rash Neurologic Neurologic: Denies headache(s), paresthesias or weakness Psychiatric Psychiatric: Denies suicidal thoughts EXAM Physical Exam Const Vital Signs: 04/15/25 22:49 04/16/25 00:49 Temperature 97.4 F L Temperature Source Temporal Pulse Rate 102 H 93 Respiratory Rate 24 H 18 Blood Pressure 122/86 H 194/71 H Blood Pressure Mean 98 112 Pulse Ox 92 100 Oxygen Delivery Method Nasal Cannula Nasal Cannula Oxygen Flow Rate (L/min) 4 4 Positive well nourished and well developed General Appearance ED: well developed and NAD HEENT Reports moist mucous membranes normocephalic and atraumatic Eyes PERRL and EOMs intact bilaterally Neck full ROM and supple Resp normal respiratory effort and clear to auscultation bilaterally Resp Narrative: Diminished throughout no distress conversing in full sentences Cardio regular rate, regular rhythm and no murmurs GI non-distended GI Narrative: Mild diffuse tenderness, focused right upper quadrant and epigastrium more moderate to severe. No rebound tenderness no guarding. Auscultation: normoactive bowel sounds Palpation: soft Back/Spine no CVA tenderness General Back: other FROM Extremity normal to inspection General Extremety ED: Negative for edema, pulses abnormal or tenderness General Extremity: Negative for edema or pulses abnormal Neuro oriented x3, CN's II-XII intact bilaterally and no sensory deficits noted Sensorium / Orientation: awake and alert Motor Exam: strength 5/5 throughout Skin no rashes or lesions noted and no wounds MDM MDM MDM Narrative Medical decision making narrative: Patient was given morphine, IV fluids, Zofran while we did a workup with a CT, she presents after ultrasound is no longer available. The labs and CT both consistent with acute on chronic pancreatitis. She has a leukocytosis of 18.9 but she usually does have a leukocytosis and this is a little less than her prior. Urine unremarkable. Bilirubin is normal as are the rest of her liver enzymes except for slightly elevated alkaline phosphatase. I think she should be admitted and treated for pancreatitis and NPO, discussed with hospitalist. History & Record Review Additional record(s) reviewed:: Prior outpatient record (Procedure note shown by patient for ERCP and pancreatic stent placement 03/10/2025) Lab Data Attestation: I reviewed the patient's lab results. Labs: Laboratory Results - last 24 hr 04/15/25 04/16/25 23:25 00:11 WBC 18.9 H RBC 4.02 L Hgb 10.7 L Hct 33.6 L MCV 83.6 MCH 26.6 L MCHC 31.8 L RDW Std Deviation 45.1 H RDW Coeff of Min 14.6 Plt Count 291 MPV 9.5 Immature Gran % (Auto) 0.700 Neut % (Auto) 72.4 H Lymph % (Auto) 14.6 L [place] % (Auto) 7.0 Eos % (Auto) 4.9 Baso % (Auto) 0.4 Absolute Neuts (auto) 13.6 H Absolute Lymphs (auto) 2.76 Nucleated RBC % 0 Sodium 138 Potassium 3.6 Chloride 99 Carbon Dioxide 27.4 Anion Gap 11 BUN 4 Creatinine 0.69 L Estim Creat Clear Calc 70.83 Est GFR (MDRD) Non-Af 99 BUN/Creatinine Ratio 5.3 L Glucose 111 H Calcium 9.2 Total Bilirubin < 0.15 AST 16 ALT 13 Alkaline Phosphatase 127 H Total Protein 6.9 Albumin 3.4 Globulin 3.5 Albumin/Globulin Ratio 1.0 Lipase 239 H Urine Color Yellow Urine Clarity Clear Urine pH 7.0 Ur Specific [place] 1.005 Urine Protein 15 H Urine Glucose (UA) Normal Urine Ketones Negative Urine Occult Blood Negative Urine Nitrite Negative Urine Bilirubin Negative Urine Urobilinogen Normal Ur Leukocyte Esterase 25 H Urine RBC 0 SEEN Urine WBC 0-5 SEEN Ur Squamous Epith Cells 0-5 SEEN Urine Bacteria 0 SEEN Urine Mucus 0 SEEN Radiography Diagnostic Testing: Clinical Impression(s) from Imaging Studies Abdomen/Pelvis CT 04/15/25 23:48 IMPRESSION: Acute on chronic pancreatitis in the pancreatic head/uncinate process. [facility] Discussion w/another healthcare provider: Hospitalist Discharge Plan Dx/Rx/DC Orders Clinical Impression: Acute on chronic pancreatitis, Presence of pancreatic duct stent Disposition Disposition: [facility]
[2025-04-15] MEDS: 0.9% Normal Saline (1000mL) 1,000 ML 125 ML IV (23:23)
--- OUTSIDE RECORDS SUMMARY | 2025-04-15 23:24 | XMS RPT_ITS | CCD ---
Author Organization [facility] Care Team Providers Care Accounting Assistant Name Role Phone CHING MARI Unavailable Unavailable Misbah Elkins MD Primary Care Provider Ho PROTECTION ENGINEER, PROTECTION ENGINEER-C Theron Primary Care Provider Dr. Freddie Perdue Attending Provider Dr. Freddie Perdue Referring Provider Misbah Elkins MD Primary Care Provider Misbah Elkins MD Primary Care Provider RUSTAM PROTECTION ENGINEER-C SOILA Primary Care Provider Alesha PROTECTION ENGINEER, PROTECTION ENGINEER-C Ani Attending Provider [phone] Alesha PROTECTION ENGINEER, PROTECTION ENGINEER-C Ani Referring Provider [phone] Unavailable Primary Care Provider Unavailabl e Free, Text Entry Unavailable Unavailable Older, Soila A Unavailable Unavailable Yalamanchali, Varija Unavailable Unavailable Prendes, Yrn Unavailable Unavailable Older, Soila A Unavailable Jaime Aggarwal MD Unavailable Jeffery Jin MD Unavailable [phone] Edmund Tang Emergency Provider Dr. Ciarra Ross Admit Provider Dr. Ciarra Ross Attending Provider Dr. Ciarra Ross Other Provider Dr. Lisa Ochoa Attending Provider Dr. Lisa Ochoa Other Provider Dr. Nacho Vega Attending Provider Dr. Mahamed Fatima Referring Provider Dr. Freddie Perdue Other Provider Dr. Gonzalo Sebastian Attending Provider Dr. Gonzalo Sebastian Other Provider Dr. Olivier Coffman Other Provider Dr. Dieter Harrison Other Provider Unavailab anjelica Eduardo PROTECTION ENGINEER, PROTECTION ENGINEER-C Ani Other Provider Dr. Anastacia Bonilla Other [...] UNKNOWN Admitting Unavailable PROVIDER, UNKNOWN Attending Unavailable Misbah Elkins MD Primary Care Provider Prendes, Yrn Attending Unavailable Prendes, Yrn Attending Unavailable Prendes, Yrn Attending Unavailable Prendes, Yrn Attending Unavailable Prendes, Yrn Referring Unavailable Prendes, Yrn Attending Unavailable Prendes, Yrn Attending Unavailable Patient, Unavailable Referring Unavailable Jessica Ellis Attending Unavailable Dr. Tai Peoples Admitting Unavailable Pending, Provider Primary Care Unavailable OLDER, PROTECTION ENGINEER-C SOILA Primary Care Provider OLDER, PROTECTION ENGINEER-C SOILA Referring Provider Alesha PROTECTION ENGINEER, PROTECTION ENGINEER-C Ani Attending Provider Dr. Víctor Huerta Emergency Provider Brock PROTECTION ENGINEER, PROTECTION ENGINEER-C Anat Primary Care Provider Dr. Carin Meraz Admit Provider Dr. Carin Meraz Other Provider Dr. Anastacia Bonilla Attending Provider Dr. Anastacia Bonilla Other Provider Dr. Bert Greenwood Attending Provider Dr. Bert Greenwood Other Provider Brittni MENENDEZ, Misbah Primary Care Provider Mayank BELTRAN, Larry Snyder Unavailable [phone] Older REGIONAL LIAISON.RN FACULTY, Soila Unavailable Neo BELTRAN, Nara Unavailable Brittni MENENDEZ, Dr. Anguiano Primary Care Provider Alesha PROTECTION ENGINEER-C, Ani Attending Provider Alesha PROTECTION ENGINEER-C, Ani Referring Provider Storm MENENDEZ, Dr. Gamez Emergency Provider Dr. Aleta Aguayo DO Admit Provider Dr. Aleta Aguayo DO Attending Provider Dr. Aleta Aguayo DO Other Provider Dr. Yrn Kahn DO Attending Provider Leigh MENENDEZ, Dr. Conde Other Provider Shannon MENENDEZ, Dr. Davis Other Provider Iron MENENDEZ, Dr. Frazier Other Provider Dr. Gonzalo Sebastian DO Other Provider Lorenza MENENDEZ, Dr. Jackson Salas Other Provider Chris MENENDEZ, Dr. Rico Other Provider [phone] Kiko MENENDEZ, Dr. Harley Other Provider Robbie MENENDEZ, Dr. Urban Other Provider Randee MENENDEZ, Dr. Guillory Other Provider Silvio MENENDEZ, Dr. Kelley Other Provider Candido MENENDEZ, Dr. Sandoval Other Provider [phone] Brad MENENDEZ, Dr. Em Other Provider Fede MENENDEZ, Dr. Rodriguez Other [facility] cherry Hurt MD, Dr. Ward Other Provider [phone] Conchita MENENDEZ, Dr. Booker Other Provider Yamel MENENDEZ, Dr. Johnson Other Provider [phone] Manuel MENENDEZ, Dr. Doan Other Provider Niru LOTT, Dr. Kathleen Other Provider [phone] Nancy MENENDEZ, Dr. Sánchez Other Provider [phone] Wolf Armando MD, Dr. Gutierres Other Provider [phone] Sofia LOTT, Dr. Hurst Other Provider Jeferson [...] Chris MENENDEZ, Dr. Rico Other Provider [phone] Kiko MENENDEZ, Dr. Harley Other Provider [phone] Robbie MENENDEZ, Dr. Urban Other Provider [phone] Randee MENENDEZ, Dr. Guillory Other Provider [phone] Silvio MENENDEZ, Dr. Kelley Other Provider Candido MENENDEZ, Dr. Sandoval Other Provider Brad MENENDEZ, Dr. Em Other Provider Fede MENENDEZ, Dr. Rodriguez [facility] Hurt MD, Dr. Ward Other Provider [phone] Conchita MENENDEZ, Dr. Booker Other Provider Yamel MENENDEZ, Dr. Johnson Other Provider Manuel MENENDEZ, Dr. Doan Other Provider Niru LOTT, Dr. Kathleen Other Provider Nancy MENENDEZ, Dr. Sánchez Other Provider [phone] Tr MENENDEZ, Dr. Gutierres Other Provider [phone] Sofia LOTT, Dr. Hurst Other Provider Jeferson MENENDEZ, Dr. Barreto Other Provider Billy MENENDEZ, Dr. Pal Other Provider Dr. Yrn Kahn DO Attending Provider Chad MENENDEZ, Dr. Anastacia Ni Other Provider Dr. Marshal Segura DO Attending Provider Brittni MENENDEZ, Dr. Anguiano Primary Care Provider Alesha PROTECTION ENGINEER-C, Ani Attending Provider Alesha PROTECTION ENGINEER-C, Ani Referring Provider Storm MENENDEZ, Dr. Gamez [...] MENENDEZ, Dr. Jackson Salas Other Provider [phone] Chris MENENDEZ, Dr. Rico Other Provider [phone] Kiko MENENDEZ, Dr. Harley Other Provider Robbie MENENDEZ, Dr. Urban Other Provider Randee MENENDEZ, Dr. Guillory Other Provider [phone] Silvio MENENDEZ, Dr. Kelley Other Provider [phone] Dr. Jaime Rey MD Other Provider Dr. Maria Antonia Salinas MD Other Provider [phone] Dr. Michael Mistry MD Other Provider Unavailabl cherry Hurt MD, Dr. Ward Other Provider [phone] Conchita MENENDEZ, Dr. Booker Other Provider Yamel MENENDEZ, Dr. Johnson Other Provider [phone] Manuel MENENDEZ, Dr. Doan Other Provider Niru LOTT, Dr. Kathleen Other Provider [phone] Gonzalo Cruz MD Other Provider [phone] Tr MENENDEZ, Dr. Gutierres Other Provider [phone] Aris Black DO Other Provider Jeferson MENENDEZ, Dr. Barreto Other Provider [phone] Billy MENENDEZ, Dr. Pal Other Provider Minor MENENDEZ, Dr. Angeles Attending Provider Criss LOTT, Dr. Pool Attending Provider Chad MENENDEZ, Dr. Anastacia Ni Other Provider Chad MENENDEZ, Dr. Anastacia Ni Referring Provider Colton LOTT, Dr. Araya Attending Provider Brittni MENENDEZ, Dr. Anguiano Referring Provider Gabby Vela Attending Provider Anjelica LOTT, Dr. Hassan Emergency Provider Dr. Mo Velasco DO Attending Provider Daniel MENENDEZ, Leandro Referring Provider Leandro Sanchez MD Emergency Provider Leandro Sanchez MD Attending Provider Storm MENENDEZ, Dr. Gamez Attending Provider Brock PROTECTION ENGINEER-C, Anat Referring Provider Abi LOTT, Dr. Camacho Emergency Provider Jolene MENENDEZ, Dr. Min Attending Provider Jolene MENENDEZ, Dr. Min Admit Provider Dr. Pako Fernández MD Other Provider Felecia MENENDEZ, Dr. Sudhir Monte Attending Provider Felecia MENNEDEZ, Dr. Sudhir Monte Other Provider Provider MD, Gyant Unavailable Unavailable SANTA GUERRERO Admitting Unavailable MACARIO FELIZ Referring Unavailable BRITTNI, MISBAH Primary Care Unavailable GURJIT RAYO Attending Unavailable GERSON MCCALL Consulting Unavaila ble DANYEL, NGUYEN Referring Unavailable BRITTNI, MISBAH Primary Care Unavailable Brittni MENENDEZ, Dr. Anguiano Primary Care Provider [phone] Leigh MENENDEZ, Dr. Conde Other Provider Shannon MENENDEZ, Dr. Davis Other Provider Iron MENENDEZ, Dr. Frazier Other Provider Dr. Gonzalo Sebastian DO Other Provider Lorenza MENENDEZ, Dr. Jackson Salas Other Provider [phone] Chris MENENDEZ, Dr. Rico Other Provider [phone] Kiko MENENDEZ, Dr. Harley Other Provider [phone] Robbie MENENDEZ, Dr. Urban Other Provider [phone] Randee MENENDEZ, Dr. Guillory Other Provider [phone] Silvio MENENDEZ, Dr. Kelley Other Provider [phone] Candido MENENDEZ, Dr. Sandoval Other Provider Brad MENENDEZ, Dr. Em Other Provider Fede MENENDEZ, Dr. Rodriguez Other Provider Unavailabl Blu MENENDEZ, Dr. Ward Other Provider [phone] Conchita MENENDEZ, Dr. Booker Other Provider Yamel MENENDEZ, Dr. Johnson Other Provider Manuel MENENDEZ, Dr. Doan Other Provider Niru LOTT, Dr. Kathleen Other Provider Nancy MENENDEZ, Dr. Sánchez Other Provider [phone] Dr. Nenita Armando MD Other Provider [phone] Aris Black DO Other Provider Jeferson MENENDEZ, Dr. Barreto Other Provider Billy MENENDEZ, Dr. Pal Other Provider [phone] Chad MENENDEZ, Dr. Anastacia Ni Other Provider [phone] Dr. Gonzalo Sebastian DO Attending Provider [phone] Alesha PROTECTION ENGINEER-C, Ani Attending Provider Felecia MENENDEZ, Dr. Sudhir Monte Referring Provider Misbah Elkins Primary Care Unavailable Víctor Huerta [facility]ending [facility]available Mo Velasco Attending Unavailable Aleta Aguayo Consulting [facility]available [facility] Unavailable Aleta Aguayo Admitting Unavailable Yrn Kahn Attending Unavailable Elton Abraham Consulting Unavailable Ryan Ortega Consulting Unavailable Freddie Perdue Consulting Unavailable Gonzalo Sebastian Consulting Unavailable Jackson Britt Consulting Unavailable Jacky Perez Consulting Unavailable Cricket Hoover Consulting Unavailable Rajni Avalos Consulting Unavailab Kahlil Dietz Consulting Unavailable Warren Anguiano Consulting Unavailable Jaime Rey Consulting Unavailable Maria Antonia Salinas Consulting Unavailable Michael Mistry Consulting Unavailable Sylvia Hurt Consulting Unavailable Jhony Arango Consulting Unavailable Alex Montesinos Consulting Unavailable Franki Jackson Consulting Unavailable Hever Marrufo Consulting Unavailable Gonzalo Cruz Consulting Unavailable Nenita Armando Consulting Unavailable Aris Black Consulting Unavailable Estevan Govea Consulting Unavailable Demarco Cervantes Consulting Unavailable Yrn Kahn Consulting Unavailable [facility] Unavailable Alesha PROTECTION ENGINEER, Ani Attending Unavailable Alesha PROTECTION ENGINEER, Ani Referring Unavailable Franco Inman Attending Unavailable [facility] Primary Care Unavailable Gonzalo Sebastian Attending Unavailable Yrn Kahn Referring Unavailable Leandro Sanchez Referring Unavailable [facility] Primary Care Unavailable Leandro Sanchez Attending Unavailable Aleta Aguayo Admitting Unavailable Aleta Aguayo Consulting Unavailable Carlie Bonillaa Raine Attending Unavailable [facility] Primary Care Unavailable Yrn Kahn Consulting Unavailable Chad Anastacia Raine Attending Unavailable Chad, Anastacia Raine Consulting Unavailable Pako Fernández Attending Unavailable [facility] Primary Care Unavailable Alesha PROTECTION ENGINEER, Ani Attending Unavailable [facility], Misbah Referring Unavailable [facility], Misbah Primary Care Unavailable Brock PROTECTION ENGINEER, Anat Referring Unavailable Alesha PROTECTION ENGINEER, Ani Attending Unavailable Brock PROTECTION ENGINEER, Anat Primary Care Unavailable Pako Fernández Consulting Unavailable Pako Fernández Admitting Unavailable Sudhir Izquierdo Attending Unavailable [facility] Unavailable Sudhir Izquierdo Consulting Unavailable [facility], Misbah Referring Unavailable [facility], [facility] Primary Care Unavailable Gabby Martinez Attending Unavailable Alesha PROTECTION ENGINEER, Ani Attending Unavailable [facility] Referring Unavailable [facility] Primary Care Unavailable Brock PROTECTION ENGINEER, Anat Referring Unavailable Alesha PROTECTION ENGINEER, Ani Attending Unavailable [facility] Primary Care Unavailable Anastacia Bonilla Referring Unavailable Pako Fernández Consulting Unavailable [facility] Primary Care Unavailable Pako Fernández Admitting Unavailable Sudhir Izquierdo Attending Unavailable Elton Abraham Consulting Unavailable Ortega, Ryan Consulting Unavailable Freddie Perdue Consulting Unavailable Gonzalo Sebastian Consulting Unavailable Jackson Britt Consulting Unavailable Matheis, Edyessy Consulting Unavailable Kiko, Cricket Consulting Unavailable Habtegebriel, Rajni Consulting Unavailab le Dand, Kahlil Consulting Unavailable Anguiano, Warren Consulting Unavailable Rey, Jaime Consulting Unavailable Brad, Maria Antonia Consulting Unavailable Aljundi, Lamia Consulting Unavailable Hurt, Sylvia Consulting Unavailable Conchita, Jhony Consulting Unavailable Irukulla, Alex Consulting Unavailable Manuel, Franki Consulting Unavailable Dhesi, Hever Consulting Unavailable Cruz, Sujoy Consulting Unavailable Vermillion, Soleyah Consulting Unavailable Fernstrom, Aris Consulting Unavailable Jeferson, Estvean Consulting Unavailable Demarco Cervantes Consulting Unavailable Alesha PROTECTION ENGINEER, Ani Referring Unavailable Alesha PROTECTION ENGINEER, Ani Attending Unavailable [facility] Care Unavailable Gonzalo Sebastian Attending Unavailable Sudhir Izquierdo Referring Unavailable Elton Abraham Consulting Unavailable Ortega, Ryan Consulting Unavailable Freddie Perdue Consulting Unavailable Gonzalo Sebastian Consulting Unavailable Jackson Britt Consulting Unavailable Chris, Jacky Consulting Unavailable Kiko, Cricket Consulting Unavailable Habtegebriel, Rajni Consulting Unavailab le Dand, Kahlil Consulting Unavailable Anguiano, Warren Consulting Unavailable Rey, Jaime Consulting Unavailable Brad, Maria Antonia Consulting Unavailable Aljundi, Lamia Consulting Unavailable Hurt, Sylvia Consulting Unavailable Conchita, Jhony Consulting Unavailable Irukulla, Alex Consulting Unavailable Manuel, Franki Consulting Unavailable Dhesi, Hever Consulting Unavailable Cruz, Sujoy Consulting Unavailable Vermillion, Soleyah Consulting Unavailable Fernstrom, Aris Consulting Unavailable Jeferson, Estevan Consulting Unavailable Billy Demarco Consulting Unavailable Marshal Segura Attending Unavailable Alesha PROTECTION ENGINEER, Ani Referring Unavailable Gonzalo Sebastian Attending Unavailable Ganta, Misbah Primary Care Unavailable Aleta Aguayo Attending Unavailable Ganta, Misbah Primary Care Unavailable Bridgette Gaxiola Attending Unavailabl e Ganta, Misbah Primary Care Unavailable Franco Inman Attending Unavailable GANTA, MISBAH Primary Care Unavailable OLDER, SOILA Attending Unavailable GANTA, MISBAH Primary Care Unavailable JANE FARRELL Referring Unavailable VANESSA PEREZ Attending Unavailable GANTA, MISBAH Primary Care Unavailable GANTA, MISBAH Referring Unavailable GANTA, MISBAH Primary Care Unavailable TARA YOUNGBLOOD Referring Unavailabl e GANTA, MISBAH Primary Care Unavailable OLDER, SOILA Attending Unavailable GANTA, MISBAH Primary Care Unavailable OLDER, SOILA Referring Unavailable GANTA, MISBAH Primary Care Unavailable OLDER, SOILA Referring Unavailable GANTA, MISBAH Primary Care Unavailable OLDER, SOILA Referring Unavailable OLDER, SOILA Attending Unavailable GANTA, MISBAH Primary Care Unavailable QUBTI, GURJIT Referring Unavailable GREERIRVINGI Attending Unavailable GANTA, MISBAH Primary Care Unavailable GANTA, MISBAH Attending Unavailable GANTA, MISBAH Primary Care Unavailable GANTA, MISBAH Attending Unavailable GANTA, MISBAH Primary Care Unavailable OLDER, SOILA Referring Unavailable GANTA, MISBAH Primary Care Unavailable OLDER, SOILA Referring Unavailable GANTA, MISBAH Primary Care Unavailable OLDER, SOILA Referring Unavailable NADEEN, JUAN Attending Unavailable GANTA, MISBAH Primary Care Unavailable GANTA, MISBAH Attending Unavailable GANTA, MISBAH Primary Care Unavailable GANTA, MISBAH Referring Unavailable GANTA, MISBAH Primary Care Unavailable NADEEN, JUAN Referring Unavailable EDUARD GALEANO Attending Unavailable GANTA, MISBAH Primary Care Unavailable TARA YOUNGBLOOD Attending Unavailabl e GANTA, MISBAH Primary Care Unavailable TARA YOUNGBLOOD Referring Unavailabl e Allergies Allergy Classification Reported Allergen(s) Allergy Type Date of Onset Reaction(s) Facility (20 sources) diazePAM; Translations: [DIAZEPAM] Drug Allergy 11-02-19 14 Other: See Comments [facility] Work Phone: (20 sources) HYDROcodone; Translations: [HYDROCODONE] Drug Allergy 08-02-20 20 Itching [facility] Work Phone: (20 sources) Penicillins; Translations: [PENICILLINS] Drug Allergy 07-07-20 06 Other: See Comments [facility] Work Phone: (20 sources) Penicillins Drug Allergy 07-07-20 Other: See Comments [facility] Work Phone: (18 sources) Penicillins Allergy to substance 01-17-20 22 [facility] (6 sources) Acetaminophen / HYDROcodone; Translations: [ACETAMINOPHEN-HYDR OCODONE] Drug Allergy 10-21-19 23 [facility] Work Phone: (5 sources) Penicillins Propensity to adverse reactions to drug 10-21-19 23 [facility] (1 source) Penicillin Drug Allergy 09-28-[address] [facility] (20 sources) Sulfamethoxazole / Trimethoprim; Translations: [SULFAMETHOXAZOLE-T RIMETHOPRIM] Drug Allergy 11-29-19 23 [facility] Work Phone: (1 source) Piperacillin / tazobactam; Translations: [Zosyn] Drug Allergy [facility] Work Phone: (14 sources) Sulfamethoxazole Drug Allergy 07-08-20 23 Other [facility] (14 sources) Trimethoprim Drug Allergy 07-08-20 23 Other [facility] (13 sources) Clindamycin Drug Allergy 01-02-20 24 [facility] (20 sources) Penicillins Drug Allergy 07-07-20 06 Other: See Comments [facility] Work Phone: (1 source) Clindamycin Drug Allergy 02-27-20 25 [facility] (1 source) HYDROcodone Drug Allergy 02-27-20 25 [facility] (1 source) Penicillins Drug allergy (disorder) 02-27-20 25 [facility] (1 source) Sulfamethoxazole Drug Allergy 02-27-20 25 [facility] (1 source) Trimethoprim Drug Allergy 02-27-20 25 [facility] Medications Current Medications Medication Drug Class(es) Dates Sig (Normalized) Sig (Original) [id number] 200 actuat albuterol 0.09 mg/actuat metered dose inhaler (20 sources) beta2-Adrenergic Agonist Start: 03-23-2025 take 2 puff(s) by mouth four times daily as needed albuterol HFA (VENTOLIN HFA) 90 mcg/actuation inhaler Inhale 2 puffs by mouth into the lungs four times a day as needed. 8.5 g 03/23/2025 2:02 PM EDT 03/23/2025 Active Start: 03-13-2025 Start: 06-19-2021 End: 06-05-2022 Start: 06-19-2021 End: [...] daily as needed. 54 g 4 08/27/2022 Suspended Start: 12-10-2019 End: 04-06-2020 Start: 12-10-2019 End: [...] tablet 5 11/07/2024 Active Start: 01-05-2024 End: 03-13-2025 Start: 10-31-2022 End: 01-12-2024 amLODIPine Besyl ate 10 MG Oral Tablet Quantity: 0 Refills: 0 Ordered: 22-Dec-2022 DO Active Comment on above: Take 1 tablet by th once daily. ARIPiprazole 5 mg oral tablet (20 sources) Atypical Antipsychotic Start: 01-22-2021 ARIPiprazole (ABILIFY) 5 mg tablet Indications: Moderate episode of recurrent major depressive disorder (HCC) 5 mg once daily. 01/22/2021 Active ARIPiprazole TAB S Quantity: 0 Refills: 0 Ordered: 22-Dec-2022 DO Active Comment on above: Take by mouth. Blood Pressure Monitor ( sources) Start: 01-12-2024 Blood Pressure Monitor Indications: Essential hypertension, benign Home blood pressure monitor 1 Each 01/12/2024 Suspended Start: 01-12-2024 Blood Pressure Monitor Indications: Essential hypertension, benign Home blood pressure monitor 1 Each 01/12/2024 Active Start: 01-12-2024 Blood Pressure Monitor Indications: Essential hypertension, benign Home blood pressure monitor 1 Each 0 01/12/2024 Active Comment on above: Home blood pressure monitor Oeenoqcnmw-Uyqqmntf-Lhmuvwdg ol (9 sources) Corticosteroid, beta2-Adrenergic Agonist Start: 04-10-2025 Start: 04-10-2025 End: 04-10-2025 Start: 12-23-2024 End: 04-10-2025 Start: 12-23-2024 cholecalciferol 0.05 mg oral capsule (20 sources) Vitamin D Start: 12-29-2018 End: 10-28-2024 take 1 capsule by mouth once daily [...] above: Take 1 capsule by mo uth once daily. TAKE 1 CAPSULE BY MO UTH DAILY COMPOUNDED PRESCRIPTION (20 sources) Start: 03-11-2018 COMPOUNDED PRESCRIPTION Indications: Bacterial pneumonia Pulse Oximetry 1 Device 03/11/2018 Suspended Start: 03-11-2018 COMPOUNDED PRE SCRIPTION Indications: Bacterial pneumonia Pulse Oximetry 1 Device 03/11/2018 Active Start: 03-11-2018 COMPOUNDED PRE SCRIPTION Indications: Bacterial pneumonia Pulse Oximetry 1 Device 0 03/11/2018 Active Start: 12-08-2017 COMPOUNDED PRE SCRIPTION Indications: Chronic obstructive pulmonary disease with acute exacerbation (HCC) nebulizer supplies (tubing) 1 Each 5 12/08/2017 Suspended Start: 12-08-2017 COMPOUNDED PRE SCRIPTION Indications: Chronic obstructive pulmonary disease with acute exacerbation (HCC) nebulizer supplies (tubing) 1 Each 5 12/08/2017 Active Comment on above: nebulizer supplies ( tubing) Pulse Oximetry cyclobenzaprine hydrochloride 10 mg oral tablet (20 sources) Muscle Relaxant Start: 04-15-20 take 1 tablet by mouth twice daily as needed for muscle spasms cyclobenzaprine (FLEXERIL) 10 mg tablet Indications: Arthralgia of right temporomandibular joint Take 1 tablet by mouth twice daily as needed for muscle spasm. 15 tablet 1 04/15/2023 Active Comment on above: Take 1 tablet by diya th twice daily as needed for muscle spasm. dextran 70 1 mg/ml / glycerin 2 mg/ml / hypromellose 3 mg/ml ophthalmic solution (1 source) Plasma Volume Hair Designer, Non-Standardized Chemical Allergen Start: 10-29-19 End: 11-28-19 take 1 drop(s) into the eye(s) four times daily Artificial Tears ophthalmic solution ; 1 drop(s) in each eye 4 times a day PRN.ADOD - 2/1Meds to Beds - .Patient Location [address] [address] Quantity: 1 Refills: 0 Ordered: 29-Oct-2022 Katina Booker Start: 29-Oct-2022 End: 27-Nov-2022 Generic Substitution Allowed Comments: For the eye. Comment on above: For the eye. doxycycline hyclate 100 mg oral tablet (20 sources) Tetracycline-clas s Drug Start: 08-10-20 24 End: 08-20-20 take 1 tablet by mouth [...] 1 tablet by diya th twice daily for 7 days. enteric contrast [...] Comment on above: Take 1 tablet by [facility] one time only for 1 dose. gabapentin 300 mg oral capsule (20 sources) Anti-epileptic Agent Start: 02-08-2025 End: 03-19-2025 take 1 capsule by mouth three times daily gabapentin (NEURONTIN) 300 mg capsule Take 1 capsule by mouth three times a day for 30 days. 90 capsule 02/17/2025 Active Start: 01-09-2025 End: 03-05-2025 12 hr guaiFENesin 600 mg extended release oral tablet (7 sources) Start: 06-19-2020 End: 04-17-2022 take 2 tablets by mouth twice daily guaiFENesin (MUCINEX) 600 mg 12 hr tablet Take 2 tablets by mouth twice daily. 0 06/19/2020 04/17/2022 Discontinued (Discontinued by Patient) Comment on above: Take 2 tablets by [facility] twice daily. 12 hr guaiFENesin 1200 mg [...] EVERY 12 HOURS for cold SYMPTOMS hydrOXYzine pamoate 25 mg oral capsule (20 sources) Antihistamine Start: take 1 tablet by mouth every eight [...] ITCHING-.ADOD - .10/28Meds to Beds .Patient Location [address] [address]PRN Reason: Anxiety Quantity: 32 Refills: 0 Ordered: 28-Oct-2022 Donn Trammell Start: 28-Oct-2022 End: 04-Nov-2022 Generic Substitution Allowed Start: 06-12-2021 End: 03-21-2025 take 1 capsule by mouth once daily at bedtime hydrOXYzine pamoate (VISTARIL) 25 mg capsule Take 1 capsule by mouth daily at bedtime. 30 capsule 11 03/22/2025 Active Start: 06-12-2021 take 25 mg by [...] DO Active take 1 capsule by mo [facility] four times daily as needed for anxiety [...] (20 sources) Angiotensin Converting Enzyme Inhibitor Start: 1 End: 5 take 1 tablet by mouth once daily lisinopril (ZESTRIL) 10 mg tablet Take 1 tablet by mouth once daily. 30 tablet 11 03/22/2025 Active Start: 08-12-2020 End: 01-16-2022 Start: 08-12-2020 End: 01-16-2022 take 10 mg by mouth once daily Lisinopril Discontinued 10 MG PO DAILY August 12, 2020 1:00am January 16, 2022 9:32am Start: 10-29-2015 End: 02-05-2019 Lisinopril 20 MG Oral Tablet Quantity: 0 Refills: 0 Ordered: 22-Dec-2022 DO Active Comment on above: Take 1 tablet by diya once daily. melatonin 10 mg extended release [...] by mouth once daily. 30 tablet 04/18/2021 Suspended Start: 04-18-2021 take 1 tablet by diya th once daily multivitamin tablet Take 1 tablet by mouth once daily. 30 tablet 04/18/2021 Active Comment on above: Take 1 tablet by diya th once daily. 24 hr nicotine 0.583 mg/hr transdermal system (20 sources) Cholinergic Nicotinic Agonist Start: 12-14-2024 Start: 01-05-2024 End: 01-19-2024 Start: 01-05-2024 End: 01-19-2024 Nicotine Discontinued 21 MG TD DAILY January 05, 2024 12:00am January 19, 2024 11:42pm Start: 10-29-2022 End: 11-11-2022 Nicoderm C-Q Clear 21 mg/24 hr transdermal film, extended release ; 1 patch transdermally once a day -.ADOD - 10/29/22.Meds to Beds - .Patient Location [address] [address]26 Quantity: 14 Refills: 0 Ordered: [...] HOME THERAPY, (20 sources) OXYGEN, HOME THE JACQUES, Inhale as instructed as directed. Patient is on 2-3 liters Suspended OXYGEN, HOME THE RAPY, Inhale as instructed [...] 1 tablet by diya th once daily. simvastatin 20 mg oral tablet (20 sources) HMG-CoA Reductase Inhibitor Start: 1 End: 5 take 1 tablet by mouth [...] oral tablet (20 sources) Opioid Agonist Start: End: take 1 tablet by mouth every six hours as needed for pain traMADol (ULTRAM) 50 mg tablet Indications: Chronic recurrent pancreatitis (HCC) , Hospital discharge follow-up Take 1 tablet by mouth every 6 hours as needed for pain for up to 7 days. 28 tablet 04/10/2025 04/17/2025 Active Start: 12-24-2024 End: 03-14-2025 Start: 12-19-2024 End: 12-22-2024 take 1 tablet [...] Q8H as needed for pain 10 January 05, 2024 12:00am January 19, 2024 [...] 30 capsule 08/05/2024 Active Start: 04-17-2022 End: 08-21-2024 ziprasidone (GEODON) 20 mg c apsule Patient unsure on dosage - prescribed by Dr. Talamantes. 04/17/2022 05/18/2024 Discontinued Comment on above: Patient unsure on do berto - prescribed by Dr. Talamantes. (20 sources) Start: 12-30-2024 Start: 12-23-2024 Start: 12-16-2024 Start: 12-12-2024 End: 03-14-2025 Start: 01-16-2022 End: 09-05-2022 Start: 12-31-2018 End: [...] oxyCO DONE hydrochloride 5 mg oral tablet (19 sources) Opioid Agonist Start: 06-15-2021 End: 01-16-2022 Start: 06-15-2021 End: 01-16-2022 Oxycodone-Acetaminophen (End ocet) 5-325 mg tablet Discontinued 1 {tbl} PO EVERY 6 HOURS as needed for pain 20 June 15, 2021 January 16, 2022 9:33am 20 ml albumin human, chcf 250 mg/ml injection (1 source) Human Serum [...] hours Ipratropium-Albuterol Active 3 ML INHALATION Q4H January 05, 2024 12:00am until breathing returns to target peak flow/parameters amylase 970321 unt / lipase 67819 unt / protease 66369 unt delayed release oral capsule (20 sources) Start: 11-01-2022 take [id number] capsules by mouth three times daily at mealtime Pymgrg-Tathznzv-Axnkann (Creon) 24,000-76,000 -120,000 unit capsule,delayed release(DR/EC) Active 1 CAP PO 3 TIMES DAILY WITH MEALS November 01, 2022 1:00am Start: 03-26-2021 End: 01-26-2024 take [id number] capsules by mouth twice daily Jxudro-Ogmqssto-Byhxgeg (Creon) 24,000-76,000 -120,000 unit capsule,delayed release(DR/EC) Discontinued 2 NMA PO TWICE A DAY November 01, 2022 1:00am January 26, 2024 11:52am Start: 12-10-2019 End: 12-19-2024 Start: 12-10-2019 Lipase-Proteas e-Amylase Active 3 EACH PO TWICE A DAY December 10, 2019 6:59am Comment on above: Take 3 capsules by m outh twice daily with meals. Take 3 capsules by m outh once daily. Znnlwva-Vfekts-Qwhepnib (CREON 10 ORAL) (1 source) Ahtadvj-Mxcvsp-F rotea se (CREON 10 ORAL) Take 24,000 Units by mouth. 0 Suspended atropine sulfate 0.025 mg / diphenoxylate hydrochloride 2.5 mg oral tablet (19 sources) Anticholinergic, Cholinergic Muscarinic Antagonist, Antidiarrheal Start: 10-13-2013 End: 10-28-2013 Start: 10-13-2013 End: 10-28-2013 Diphenoxylate-Atropine (Lomo til 2.5-0.025 Mg Tablet) 1 EACH tablet Discontinued 1 NMA PO 4 TIMES DAILY NEEDED as needed for Diarrhea October 13, 2013 1:00am October 28, 2013 12:28pm azithromycin 250 mg oral tab let (19 sources) Macrolide Antimicrobial Start: 05-13-2019 End: 07-12-2019 benzonatate 200 mg oral caps ule (20 sources) Non-narcotic Antitussive Start: 01-05-2024 End: 01-19-2024 Start: 03-03-2022 End: 07-18-2022 take 1 capsule [...] Start: 01-22-2021 take 1 capsule by mo uth twice daily Benzonatate (Tessalon Perles) 100 mg capsule Active 100 MG PO TWICE A DAY January 22, 2021 9:57pm Comment on above: Take 100 mg by mouth three times daily as needed. Take 200 mg by mouth three times a day as needed. Budesonide-Formote rol (19 sources) Corticosteroid, beta2-Adrenergic Agonist Start: 11-14-2020 End: [...] on above: Take 1 tablet by diya three times daily. calcium chloride 0.0014 meq/ml / potassium chloride 0.004 meq/ml / sodium chloride 0.103 meq/ml / sodium lactate 0.028 meq/ml injectable solution (1 source) Start: 2024 End: 2024 take 150 mL intravenously every hour 150 mL/hr, INTRAVENOUS, CONTINUOUS, Starting on 03/10/25 at 1400, Until 03/11/25 at 0415, Preprocedure colchicine 0.6 mg oral tablet (16 sources) Start: 2024 colchicine 0.6 mg tablet Take 2 pills x1 now then take 1 tablet BID until gone 5 tablet 01/13/2025 Suspended dexmedeTOMIDine 400 mcg in NaCl 0.9% 100 mL (PRECEDEX) (1 source) Start: 2024 End: 2024 0.2-1.5 mcg/kg/hr 64 kg Order-specific weight (3.2-24 mL/hr), INTRAVENOUS, CONTINUOUS, Starting on Nora 03/16/25 at 0600, Until Nora 03/16/25 at 0705, Titrate to a RASS of 0 to -2 (light sedation) Start at 0.2-0.4 mcg/kg/hr or continue at current infusion rate. Titrate by 0.1-0.2 mcg/kg/hr every 15-30 minutes. Contact LIP if dose adjusted by more than 0.4 mcg/kg/hr within 30 minutes. If infusing for 24 hours and SAT indicated, turn infusion off and monitor for SAT failure. If patient fails SAT per protocol, then re-start at one-half of the previous dose and titrate to RASS goal. dicyclomine hydrochloride 10 mg oral capsule (19 sources) Anticholinergic Start: 2018 End: 2019 Start: [...] as needed. erythromycin 0.005 mg/mg ophthalmic ointment (17 sources) Macrolide, Macrolide Antimicrobial Start: 10-29-19 End: 06-30-20 escitalopram 10 mg oral tablet (5 sources) Serotonin Reuptake Inhibitor Start: 05-18-20 End: 08-05-20 take 1 tablet by mouth once daily, then take 0.5 tablet by mouth once daily, then take 1 tablet by mouth once daily escitalopram oxalate (LEXAPRO) 10 mg tablet Indications: Anxiety Take 1 tablet by mouth once daily. Please take half a pill a day for 7days and then go on to a full pill a day 30 tablet 5 05/18/2024 08/05/2024 Discontinued 1 ml fentaNYL 0.05 mg/ml injection (3 sources) Opioid Agonist Start: 03-16-20 End: 03-15-20 25 mcg, INTRAVENOUS, ONCE, 1 dose, On Nora 03/16/25 at 0600 Start: 03-16-2025 End: 03-15-2025 25 mcg, INTRAVENOUS, ONCE, 1 dose, On Nora 03/16/25 at 0600 Start: 03-16-2025 End: 03-15-2025 25 mcg, INTRAVENOUS, ONCE, 1 dose, On Nora 03/16/25 at 0600 Flucelvax Quad (flu vac qs (6 ms up) CD) 60 mcg (15 mcg x (1 source) Start: 08-30-2021 End: 08-30-2021 inject 15 ug by intramuscular injection once Flucelvax Quad (flu vac qs (6 ms up) CD) 60 mcg (15 mcg x Discontinued 60 MCG IM ONCE 0.5 August 30, 2021 11:53am August 30, 2021 12:26pm Fluticasone Propion-Salmeterol (19 sources) Corticosteroid , beta2-Adrenerg ic Agonist Start: 12-20-2019 End: 04-05-2020 Fluticasone Propion-Salmeterol (Advair Diskus) 500-50 mcg/dose blister [...] 20, 2019 12:00am April 05, 2020 10:01am Ojtfxcvwusf-Rkvhclfpe-Npssyu er (20 sources) Anticholinergic, Corticosteroid, beta2-Adrenergic Agonist Start: 06-30-2023 End: 01-26-2024 Start: 06-30-2023 End: 01-26-2024 Knhouulsorc-Oqlbxeova-Atkqax er (Trelegy Ellipta) 100-62.5-25 mcg blister with device Discontinued 1 NMA INHALATION Q24H June 30, 2023 12:00am January 26, 2024 11:27am Start: 06-30-2023 Fluticasone-Um eclidin-Vilanter (Trelegy Ellipta) 100-62.5-25 mcg blister with device Active 1 INH INHALATION Q24H June 30, 2023 12:00am Start: 09-10-2021 Fluticasone-Um eclidin-Vilanter (Trelegy Ellipta) 100-62.5-25 mcg blister with device Active 1 INH INHALATION DAILY 60 September 10, 2021 9:54am Start: 09-10-2021 Fluticasone-Um eclidin-Vilanter (Trelegy Ellipta) 100-62.5-25 mcg blister with device Active 1 INH INHALATION DAILY September 10, 2021 10:54am Start: 06-12-2021 End: 09-10-2021 Start: 06-12-2021 End: 09-10-2021 Undjbnwsmkm-Ufuygsjhj-Xfxhhk er (Trelegy Ellipta) 100-62.5-25 mcg blister with device Discontinued 1 NMA INHALATION DAILY June 12, 2021 2:44am September 10, 2021 10:54am Start: 06-12-2021 End: 09-10-2021 Itrkswybeds-Thiclprdw-Qiwrsh er (Trelegy Ellipta) 100-62.5-25 mcg blister with device Discontinued 1 INH INHALATION DAILY June 12, 2021 1:44am September 10, 2021 9:54am Start: 06-12-2021 End: 09-10-2021 Lyipharnxlr-Ozjprxtti-Ywcyoa er (Trelegy Ellipta) 100-62.5-25 mcg blister with device Discontinued 1 INH INHALATION DAILY June 12, 2021 2:44am September 10, 2021 10:54am Start: 03-29-2021 End: 06-12-2021 Ufkvofbyklu-Smmtrxmvw-Qrvvhe er (Trelegy Ellipta) 100-62.5-25 mcg blister with device Discontinued 1 INH INHALATION DAILY March 29, 2021 11:35am June 12, 2021 2:44am Start: 03-29-2021 End: 06-12-2021 Start: 03-29-2021 End: 06-12-2021 Tilpztilats-Qpdvmdghd-Vuivsz er (Trelegy Ellipta) 100-62.5-25 mcg blister with device Discontinued 1 NMA INHALATION DAILY 60 March 29, 2021 12:00am June 12, 2021 2:44am Start: 03-29-2021 End: 06-12-2021 Fzjytppklda-Txfturpcq-Jetuxq er (Trelegy Ellipta) 100-62.5-25 mcg blister with device Discontinued 1 INH INHALATION DAILY 60 March 28, 2021 11:00pm June 12, 2021 1:44am Start: 03-29-2021 End: 06-12-2021 Uflrbkujuou-Zbtoiolsy-Oiqrmi er (Trelegy Ellipta) 100-62.5-25 mcg blister with device Discontinued 1 INH INHALATION DAILY 60 March 29, 2021 12:00am June 12, 2021 2:44am Start: 04-06-2020 End: 04-15-2023 wivwdodeuoy-ibyoitqie-wjsyxt er (TRELEGY ELLIPTA) 100-62.5-25 mcg inhalation powder DAILY 04/06/2020 04/15/2023 Discontinued Comment on above: DAILY Fluticasone Furoate-Vilanterol (19 sources) Corticosteroid, beta2-Adrenergic Agonist Start: 06-16-2019 End: [...] water and spit out; do not swallow Poslyimldyp-Juomqjdgk-Cjlizw er (20 sources) Start: 08-29-2024 End: 12-23-2024 Start: 08-29-2024 Fluticasone-Um eclidin-Vilanter (Trelegy Ellipta) 200-62.5-25 mcg blister with device Active 1 NMA INHALATION DAILY 3 August 29, 2024 10:29am Start: 05-11-2024 End: 08-29-2024 Start: 05-11-2024 End: 08-29-2024 Ayivjabnjmd-Uhaylbyzj-Cgetvv er (Trelegy Ellipta) 200-62.5-25 mcg blister with device Discontinued 1 NMA INHALATION DAILY 3 May 11, 2024 1:32pm August 29, 2024 10:29am Start: 01-26-2024 End: 05-11-2024 Start: 01-26-2024 End: 05-11-2024 Uqlfxnvxylb-Qauzhntvo-Lovvsp er (Trelegy Ellipta) 200-62.5-25 mcg blister with [...] 2019 12:08am hydroCHLOROthiazide 12.5 mg oral capsule (13 sources) Thiazide Diuretic Start: 01-05-2024 End: 12-16-2024 Start: 01-05-2024 Hydrochlorothi azide 12.5 mg Capsule Active 12.5 mg PO WITH BREAKFAST January 05, 2024 12:00am Hold for SBP less than 130 mmHg Comment on above: TAKE 1 CAPSULE BY MO [facility] EVERY DAY with breakfast for 30 [...] Comment on above: TAKE 1 TABLET BY [facility] EVERY SIX HOURS NEEDED levoFLOXacin 500 mg [...] on above: Take 1 capsule by mo [facility] four times daily as needed for diarrhea. [...] on above: Take 1 tablet by diya two times a day for 30 days. Take 1 tablet by diya once daily. naproxen 500 mg oral tablet (19 sources) Nonsteroidal Anti-inflammatory Drug Start: 10-13-2013 End: 10-28-2013 Norepinephrine (1 source) Catecholamine Start: 03-16-2025 End: 03-16-2025 0.6-30 mcg/min (1.125-56.25 mL/hr, rounded to 1.13-56.25 mL/hr), INTRAVENOUS, CONTINUOUS, Starting on Nora 03/16/25 at 0600, Until Nora 03/16/25 at 0705, Refrigerate - Noncytotoxic Vesicant - Central Line Only. May be used peripherally under emergent circumstances while a central line is placed according to the Intentional Administration of Catecholamine Vasopressors via a Peripheral Intravenous Catheter Adult Protocol., Select One: Titrate, Choose target parameter: Mean Arterial Pressure (MAP), Titrate to a MAP (mmHg): 65-75, Starting Dose: 0.6-10 mcg/min or Continue at Current Infusion Rate, Titrate Amount/Interval: Titrate by 0.5-5 mcg/min every 1-2 minutes., Contact LIP: If dose adjusted by more than 20 mcg/min within 30 minutes., If this medication is paused for any duration of time and needs to be restarted: Restart at 0.6-10 mcg/min and titrate per order parameters. nystatin 538397 unt/ml oral suspension (20 sources) Polyene Antifungal Start: 01-07-2024 End: 01-19-2024 Start: 01-07-2024 End: 01-19-2024 Nystatin 100,000 unit/mL lorna pension Discontinued 5 mL MUCOUS MEM THREE TIMES A DAY January 07, 2024 12:00am January 19, 2024 11:42pm swish and swallow 5 cc three times per day for 10 days Start: 01-07-2024 End: 01-19-2024 Nystatin Discontinued 5 ML M UCOUS MEM THREE TIMES A DAY January 07, 2024 12:00am January 19, 2024 [...] gone. oxyCODONE hydrochloride 5 mg oral tablet (15 sources) Opioid Agonist Start: 07-08-2023 End: 01-05-2024 Start: 10-28-2022 End: 10-31-2022 take 1 tablet by mouth every six hours as needed oxyCODONE 5 mg oral tablet ; 1 tab(s) orally every 6 hours, As Needed -Pain - Severe (7-10) - G89.1.ADOD - .10/28Meds to Beds - .Patient Location [address] [address]26 Quantity: 16 Refills: 0 Ordered: 28-Oct-2022 Katina Booker Start: 28-Oct-2022 End: 31-Oct-2022 Generic Substitution Allowed polyvinyl alcohol 0.014 ml/m l ophthalmic solution (16 sources) Start: 11-01-2022 End: 06-30-2023 predniSONE 20 mg oral tablet (20 sources) Start: 06-02-2024 End: 03-14-2025 Start: 01-05-2024 End: 01-19-2024 Start: 01-05-2024 End: [...] 0 Refills: 0 Ordered: 22-Dec-2022 DO Active sulfamethoxazole 800 mg / trimethoprim 160 mg oral tablet (17 sources) Dihydrofolate Reductase Inhibitor Antibacterial, Sulfonamide Antimicrobial [...] of water. thiamine 100 mg oral tablet (19 sources) Start: 04-22-2019 End: 07-12-2019 60 actuat tiotropium 0.0025 mg/actuat inhalation spray (19 sources) Anticholinergic Start: 11-14-2020 End: 03-29-2021 Start: 11-14-2020 End: 03-29-2021 take 2.5 ug by inhalation once daily Tiotropium [place] (Spiriva Respimat) 2.5 mcg/actuation mist Discontinued 2 NMA INHALATION daily November 14, 2020 1:00am March 29, 2021 11:33am administer at approximately the same time(s) each day Start: 11-14-2020 End: 03-29-2021 take 1 puff(s) by inhalation once daily Tiotropium [place] (Spiriva Respimat) 2.5 mcg/actuation mist Discontinued 2 PUFF INHALATION daily November 14, 2020 1:00am March 29, 2021 11:33am administer at approximately the same time(s) each day vasopressin 20 Units in D5W 100 mL (VASOSTRICT) (1 source) Start: 03-16-2025 End: 03-16-2025 0.04 Units/min (12 mL/hr), INTRAVENOUS, CONTINUOUS, Starting on Nora 03/16/25 at 0600, Until Nora 03/16/25 at 0705, Exp: (18 HR) - Central Line Only Problems Active Problems Problem Classification Problem Date Documented Da te Episodic/Chronic Acute and unspecified renal failure (20 sources) Injury of kidney; Translations: [Acute kidney failure, unspecified] Onset: 3 11-01-2022 Episodic Alcohol-related disorders (20 sources) Alcoholic hepatitis; Translations: [Alcoholic hepatitis without ascites] Onset: 4 Resolved: 9 11-02-2018 Chronic Comment on above: Sobriety in 2020 Anxiety disorders (20 sources) Anxiety state; Translations: [Generalized anxiety disorder] Onset: 9 07-13-2017 Chronic Asthma (20 sources) Asthma; Translations: [Unspecified asthma, uncomplicated] Onset: 5 12-10-2019 Chronic Cardiac dysrhythmias (13 sources) Tachycardia; Translations: [Tachycardia, unspecified] Onset: 5 12-16-2023 Episodic Chronic obstructive pulmonary disease and bronchiectasis (20 sources) Chronic obstructive lung disease; Translations: [Chronic obstructive pulmonary disease, unspecified] Onset: 2 04-19-2019 Chronic Deficiency and other anemia (19 sources) Anemia; Translations: [Anemia, unspecified] 02-01-2019 Episodic Diseases of white blood cells (17 sources) Leukocytosis; Translations: [Elevated white blood cell [...] 9 09-04-2009 Chronic Fluid and electrolyte disorders (20 sources) Acute hyponatremia; Translations: [Hypo-osmolality and hyponatremia] Onset: 5 11-01-2022 Episodic Genitourinary symptoms and ill-defined conditions (20 sources) Female stress incontinence; Translations: [Stress incontinence (female) (male)] Onset: 5 11-24-2014 Chronic Gout and other crystal arthropathies (19 sources) Acute gout; Translations: [Gout, unspecified] Onset: 5 06-10-2024 Chronic Inflammation; infection of eye (except that caused by tuberculosis or sexually transmitteddisease) (7 sources) Inflammation of orbit; 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] Onset: 3 Chronic Inflammation; infection of eye (except that caused by tuberculosis or sexually transmitteddisease) (20 sources) Orbital cellulitis; Translations: [Cellulitis of right orbit] Onset: 3 10-19-2022 Episodic Intestinal infection (2 sources) Viral gastroenteritis due to Kiefer-like agent; Translations: [Acute gastroenteropathy due to Kiefer agent] Onset: 5 04-10-2025 Episodic Malaise and fatigue (1 source) Fatigue; Translations: [Chronic fatigue, unspecified] Chronic Malaise and fatigue (1 source) Weakness; Translations: [Weakness] Onset: 5 Episodic Menopausal disorders (20 sources) Postmenopausal bleeding; Translations: [Postmenopausal bleeding] Onset: 3 12-07-2012 Chronic Mood disorders (20 sources) Reactive depression (situational); Translations: [Major depressive disorder, single episode, unspecified] Onset: 9 04-28-2019 Chronic Mood disorders (1 source) Mood disorders; Translations: [Depression, unspecified] Onset: 3 Mycoses (1 source) Candidiasis of mouth; Translations: [Candidal stomatitis] Episodic Nutritional deficiencies (1 source) Iron deficiency; Translations: [Iron deficiency] Episodic Osteoarthritis (19 sources) Arthritis; Translations: [Unspecified osteoarthritis, unspecified site] 12-10-2019 Chronic Other aftercare (4 sources) Post-discharge follow-up; Translations: [Encounter for follow-up examination after completed treatment for conditions other than malignant neoplasm] 12-19-2024 Episodic Other circulatory disease (18 sources) Stenosis of left subclavian artery; Translations: [Stricture of artery] 12-04-2024 Chronic Other circulatory disease (1 source) Stricture of artery; Translations: [Stricture of artery] Onset: Chronic Other circulatory disease (1 source) H/O: hypertension; Translations: [Personal history of other diseases of circulatory system] Episodic Other connective tissue disease (11 sources) Foot pain; Translations: [Pain in right foot] 01-19-2024 Episodic Other connective tissue disease (10 sources) Swelling of right foot; Translations: [Other specified soft tissue disorders] 06-10-2024 Episodic Other connective tissue disease (10 sources) H/O: back problem; Translations: [Personal history of other diseases of the musculoskeletal system and connective tissue] 09-26-2019 Episodic Other eye disorders (1 source) Entropion of right lower eyelid; Translations: [Entropion, unspecified] 10-28-2022 Episodic Other gastrointestinal disorders (20 sources) Irritable bowel syndrome; Translations: [Mixed irritable bowel syndrome] Onset: 08-27-2017 Chronic Other gastrointestinal disorders (20 sources) Diarrhea; Translations: [Diarrhea, unspecified] 12-10-2019 Episodic Other gastrointestinal disorders (8 sources) History of pancreatitis; Translations: [Personal history of other diseases of digestive system] 12-24-2024 Episodic Other gastrointestinal disorders (15 sources) Dysphagia; Translations: [Dysphagia, unspecified] 12-19-2024 Episodic Other liver diseases (2 sources) High lipase level in serum; Translations: [Abnormal levels of other serum enzymes] 08-15-2024 Episodic Other lower respiratory disease (1 source) Lung mass; Translations: [Other nonspecific abnormal finding of lung field] Episodic Other lower respiratory disease (7 sources) Dyspnea; Translations: [Shortness of breath] 08-10-2024 Episodic Other lower respiratory disease (1 source) Productive cough ; Translations: [Cough with sputum] 11-07-2024 Episodic Other lower respiratory disease (20 sources) Nodule of lung; Translations: [Solitary pulmonary nodule] Onset: 5 12-04-2024 Episodic Other nervous system disorders (1 source) [...] unspecified joint] Episodic Other non-traumatic joint disorders (11 sources) Swollen ankle region; Translations: [Effusion, right ankle] 01-19-2024 Episodic Other non-traumatic joint disorders (2 sources) Acute ankle pain; Translations: [Pain in right ankle and joints of right foot] 01-25-2024 Episodic Other nutritional; endocrine; and metabolic disorders (14 sources) Hypomagnesemia; Translations: [Hypomagnesemia] Onset: 5 03-16-2025 Chronic Other nutritional; endocrine; and metabolic disorders (12 sources) Hypophosphatemia; Translations: [Other disorders of phosphorus metabolism] Onset: 5 03-17-2025 Chronic Other nutritional; endocrine; and metabolic disorders (19 sources) Unintentional weight loss; Translations: [Abnormal weight loss] 02-01-2019 Episodic Other screening for suspected conditions (not mental disorders or infectious disease) (8 sources) Patient encounter status; Translations: [Encounter for screening mammogram for malignant neoplasm of breast] Episodic Other upper respiratory infections (15 sources) Sinusitis; Translations: [Chronic sinusitis, unspecified] 06-02-2023 Chronic Other upper respiratory infections (10 sources) Viral upper respiratory tract infection; Translations: [...] 4 02-01-2019 Episodic Pleurisy; pneumothorax; pulmonary collapse (16 sources) Pleurisy; Translations: [Pleurisy] 01-02-2024 Episodic Pneumonia (except that caused by tuberculosis or sexually transmitted disease) (20 sources) Community acquired pneumonia; Translations: [Pneumonia, unspecified organism] Onset: 5 03-11-2022 Episodic Residual codes; unclassified (19 sources) Hypersomnia; Translations: [Hypersomnia, unspecified] 09-26-2019 Chronic Comment on above: May need PSG in futu re. Residual codes; unclassified (1 source) Device in situ; Translations: [Presence of other specified functional implants] 04-10-2025 Chronic Residual codes; unclassified (1 source) Presence of other specified functional implants; Translations: [Presence of pancreatic duct stent] Onset: 5 Chronic Residual codes; unclassified (19 sources) Noncompliance with medication regimen; Translations: [Patient's other noncompliance with medication regimen] 03-29-2021 Episodic Residual codes; unclassified (20 sources) Tobacco user; Translations: [Tobacco use] Onset: 3 02-01-2019 Episodic Residual codes; unclassified (19 sources) History of colonoscopy; Translations: [Other specified postprocedural states] 04-20-2019 Episodic Residual codes; unclassified (3 sources) Insomnia; Translations: [Insomnia, unspecified] 04-15-2023 Episodic Respiratory failure; insufficiency; arrest (adult) (20 sources) Chronic hypoxemic respiratory failure; Translations: [Chronic respiratory failure with hypoxia] Onset: 3 Chronic Respiratory failure; insufficiency; arrest (adult) (20 sources) Acute respiratory failure; Translations: [Acute respiratory failure with hypoxia] Onset: 5 12-04-2024 Episodic Respiratory failure; insufficiency; arrest (adult) (2 sources) Respiratory failure; insufficiency; arrest (adult) 10-27-2022 Septicemia (except in labor) (14 sources) Septic shock; Translations: [Sepsis, unspecified organism] Onset: 5 03-16-2025 Episodic Skin and subcutaneous tissue infections (20 sources) Cellulitis of abdominal wall ; Translations: [...] (1 source) Drug rash 10-29-2022 Viral infection (19 sources) Human papilloma virus infection; Translations: [Papillomavirus [...] medicines taken internally] Onset: 10-29-2022 10-29-2022 Episodic Biliary tract disease (20 sources) Acute cholecystitis; Translations: [Acute cholecystitis] Onset: 12-24-2024 06-12-2021 Episodic Blindness and vision defects (2 sources) [...] 01-07-2019 Chronic Other aftercare (1 source) Other joint terminal attack controller (current) drug therapy; Translations: [Other joint terminal attack controller (current) drug therapy] Onset: 10-29-2022 Episodic Other aftercare (1 source) Encounter for follow-up examination after completed treatment for conditions other than malignant neoplasm; Translations: [Hospital discharge follow-up] Onset: 12-19-2024 Episodic Other and unspecified benign neoplasm (20 [...] Translations: [Shortness of breath] Onset: 08-10-2024 Episodic Other lower respiratory disease (1 source) Solitary pulmonary nodule; Translations: [Solitary pulmonary nodule] Onset: 12-20-2024 Episodic Ovarian cyst (20 sources) Cyst of [...] Test Name Value Interpretation Reference Range Facility [facility] 04-11-2025 [facility] Telephone (PODCCP) GRACIE BANUELOS ([id number]) 1965 F Date Time Provider Department 04/11/25 [facility] ELKINS [facility] During your visit today, we recorded the following information about you: Yuly France 04/11/2025 9:34 AM Signed Transitional Care Management (TCM) [facility] Provider Action / FYI: na SUMMARY: Outreach type: INITIAL OUTREACH Discharge Network Status: In-Network Discharge Source of Patient: [facility] TCM Discharge Report Patient discharged from [facility] on 03.23.25. Admitted for acute on chronic respiratory failure with hypoxia. . . . . Contact made with patient: No - 2nd unsuccessful attempt - end outreach and close encounter. Yuly France April 11, 2025 9:34 AM Allergies As of Date: 04/11/2025 Noted Allergy Reaction BACTRIM (SULFAMETHOXAZOLE-TRIME TH*11/28/2022 4 - Hives HYDROCODONE 08/02/2020 9 - Itching PENICILLINS 07/07/2006 14 - Other: See Comments Comments: hives VALIUM (DIAZEPAM) 11/02/2013 14 - Other: See Comments Comments: cross reaction with alcohol addiction Date Reviewed: 04/10/2025 Reviewed by: Rosmery Barron LPN - Fully Assessed Reason for Visit: Transition Of Care [4074] Prescriptions as of 04/11/2025 - traMADol (ULTRAM) 50 mg tablet Take 1 tablet by mouth every 6 hours as needed for pain for up to 7 days. - albuterol HFA (VENTOLIN HFA) 90 mcg/actuation inhaler Inhale 2 puffs by mouth into the lungs four times a day as needed. - hydrOXYzine pamoate (VISTARIL) 25 mg capsule Take 1 capsule by mouth daily at bedtime. - lisinopril (ZESTRIL) 10 mg tablet Take 1 tablet by mouth once daily. - gabapentin (NEURONTIN) 300 mg capsule Take 1 capsule by mouth three times a day for 30 days. - simvastatin (ZOCOR) 20 mg tablet Take 1 tablet by mouth daily at bedtime. - albuterol (PROVENTIL) 2.5 mg /3 mL [...] 1 capsule by mouth once daily. - ziprasidone (GEODON) 40 mg capsule Take 1 capsule by mouth at bedtime as needed. - Blood Pressure Monitor Home blood pressure monitor - cyclobenzaprine (FLEXERIL) 10 mg tablet Take 1 tablet by mouth twice daily as needed for muscle spasm. - ferrous sulfate (SLOW FE) 140 mg [...] supplies (tubing) Problem List As Of Date 04/11/2025 Noted Resolved TOBACCO USE DISORDER [F17.200] 06/29/2008 Anxiety state [F41.1] 10/19/2008 Hyperlipidemia [E78.5] 01/31/2009 Essential hypertension, benign [I10] 09/04/2009 Gastroesophageal reflux disease [K21.9] 12/26/2009 01/10/2021 Acute gastritis without mention of hemorrhage [*10/03/2010 01/03/2015 Pancreatitis chronic 05/26/2011 08/27/2017 COPD without exacerbation (HCC) [J44.9] 05/25/2012 Lumbar disc disease with radiculopathy [M51.16] 06/18/2012 Postmenopausal bleeding [N95.0] 12/07/2012 Ovarian cyst, right [N83.201] 12/27/2012 Alcoholic hepatitis without ascites [K70.10] 11/16/2013 Urine, incontinence, stress female [N39.3] 11/24/2014 HPV test positive [[id number]] 11/24/2014 Alcohol dependence in remission (HCC) [F10.21] [...] 01/10/2021 01/10/2021 Abdominal bloating [R14.0] 01/10/2021 01/10/2021 Acute on chronic respiratory failure with hypox*03/15 (more content not included)... Normal [facility] CNOVon 04-10-2025 CNOV Office Visit (INTMWS ) GRACIE BANUELOS Salvatore ([id number]) 1965 F Date Time Provider Department 04/10/25 1:40 PM NICOLAS GREER INTMWS During your visit today, we recorded the following information about you: Pulse Respiration Blood pressure Weight 100/minute 16/minute 102/82 56 kg Nicolas Greer APRN.NATIONAL ACCOUNT MANAGER 04/10/2025 2:31 PM Signed Subjective Patient ID: Gracie is a 59 year old female who presents for Hospital F/U. HPI She was admitted to the hospital on March 15 through March 23 for acute on chronic hypoxic respiratory failure. Noted to have mild protein calorie malnutrition during admission. Discharge summary excerpted:HOSPITAL COURSE: 59-year-old female with past medical history of hypertension, hyperlipidemia, alcohol abuse, anxiety, COPD with chronic hypoxic respiratory failure on 5 L at baseline, chronic pancreatitis status post ERCP with stent placement 03/10. Patient was transferred from [facility]. There she was found to have acute pancreatitis. She had a stent placed in the body of the pancreas however on CT scan at the other hospital she had new peripancreatic inflammation. She was also experiencing acute hypoxic respiratory failure and was emergently intubated and transferred to [facility] ICU. She required vasopressor support due to septic shock and was noted to have bilateral pneumonia. She was extubated and transferred to the floors. She remained hemodynamically stable off pressors but had increasing oxygen requirements. She was followed by pulmonology and treated for bilateral pneumonia and COPD exacerbation and was subsequently able to wean oxygen back to her baseline of 5 L. She was cleared for discharge by pulmonology. 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 Pancreatic Stent Placement: - Stent placed by Dr. Garrido at [facility]. - Persistent abdominal pain radiating to the back, unchanged since hospital discharge. - Pain described as severe, causing sleep disturbances; currently managed with extra strength Tylenol, providing ~6 hours of relief. - Follow-up with Juan Canas scheduled for 04/17. - Denies nausea or emesis. - Bowel movements are generally solid with a normal diet; occasional loose stools attributed to gabapentin and coffee consumption. - No current alcohol consumption; quit drinking and smoking to avoid pancreatic irritation. Respiratory Failure: - Respiratory failure following stent placement led to hospitalization at [facility], then transferred to [facility] due to fluid overload and septic shock. - Required mechanical ventilation; diagnosed with bilateral pneumonia. - Follow-up with Ani Coto, pulmonology, today. She noted mild wheezing in the right lung; no current infection or pneumonia. - On 5L O2 continuously; advised by Dr. Coto to reduce to 3L if comfortable. - Albuterol prescription recently filled. - Reports she was unable to connect to a virtual visit on 04/13. Notes no alcohol or smoking for several months. Objective BP 102/82 Pulse 100 Resp 16 Wt 56 kg (123 lb 7.3 oz) LMP 05/29/2010 SpO2 99% BMI 20.54 kg/m? Physical Exam Latest Ref Rng 03/16/2025 03/18/2025 03/19/2025 03/20/2025 03/21/2025 03/22/2025 03/23/2025 Campylobacter species (C. jejuni/C. coli/C. upsaliensis) DNA Not Detected Not detected Plesiomonas shigelloides DNA Not Detected Not detected Salmonella species DNA Not Detected Not detected Vibrio species DNA Not Detected Not detected Vibrio cholerae DNA Not Detected Not detected Yersinia enterocolitica DNA Not Detected Not detected Enteroaggregative E. coli (EAEC) DNA Not Detected Not detected Enteropathogenic E. coli (EPEC) DNA Not detected Not detected Enterotoxigenic E. coli (ETEC) DNA Not Detected Not detected Shiga-like toxin producing E. coli (STEC) DNA Not Detected Not detected E. coli O157 DNA Not detected Not applicable Shigella/Enteroinvasive E. coli (EIEC) DNA Not Detected Not detected Adenovirus F 40/41 DNA Not Detected Not detected Astrovirus RNA Not Detected Not detected Norovirus GI/GII RNA Not Detected Detected ! Rotavirus A RNA Not Detected Not detected Sapovirus (Genogroups I, II, IV, V) RNA Not Detected Not detected Cryptosporidium DNA Not Detected Not detected Cyclospora cayetanensis DNA Not Detected Not detected Entamoeba histolytica DNA Not Detected Not detected Giardia lamblia DNA Not Detected Not detected pH, Venous 7.32 - 7.42 7.37 pCO2, Venous 42 - 55 mmHg 47 pO2, Venous 35 - 45 mmHg 33 (L) Base Excess, Venous 0 - 2 mmol/L 1 Bicarbonate, Venous 24 - 28 mmol/L 26 Oxyhemoglobin, Venous 4 - 98 % 60 Carboxyhemoglobin, Venous 0.0 - 2.0 % 1.0 Methemoglobin, Venous 0.0 - 1.5 % 0.1 Sodium, Whole Blood 136 - 144 mmol/L 139 135 (L) Potassium, Whole Blood 2.5 - 6.0 (more content not included)... Normal [facility] Matteo 04-10-2025 A[facility] Telephone ([facility]) GRACIE BANUELOS ([id number]) 1965 F Date Time Provider Department 04/10/25 MISBAH ELKINS During your visit today, we recorded the following information about you: Yuly [place] 04/10/2025 9:37 AM Signed Transitional Care Management (TCM) [facility] Provider Action / FYI: na SUMMARY: Outreach type: INITIAL OUTREACH Discharge Network Status: In-Network Discharge Source of Patient: [facility] TCM Discharge Report Patient discharged from [facility] on 03.23.25. Admitted for acute on chronic respiratory failure with hypoxia. . . . Contact made with patient: No - next outreach attempt will be on next . Yuly France April 10, 2025 9:37 AM Allergies As of Date: 04/10/2025 Noted Allergy Reaction BACTRIM (SULFAMETHOXAZOLE-TRIME TH*11/28/2022 4 - Hives HYDROCODONE 08/02/2020 9 - Itching PENICILLINS 07/07/2006 14 - Other: See Comments Comments: hives VALIUM (DIAZEPAM) 11/02/2013 14 - Other: See Comments Comments: cross reaction with alcohol addiction Date Reviewed: 03/23/2025 Reviewed by: Kerri Aaron RN - Fully Assessed Reason for Visit: Transition Of Care [3494] Prescriptions as of 04/10/2025 - albuterol HFA (VENTOLIN HFA) 90 mcg/actuation inhaler Inhale 2 puffs by mouth into the lungs four times a day as needed. - hydrOXYzine pamoate (VISTARIL) 25 mg capsule Take 1 capsule by mouth daily at bedtime. - lisinopril (ZESTRIL) 10 mg tablet Take 1 tablet by mouth once daily. - gabapentin (NEURONTIN) 300 mg capsule Take 1 capsule by mouth three times a day for 30 days. - simvastatin (ZOCOR) 20 mg tablet Take 1 tablet by mouth daily at bedtime. - albuterol (PROVENTIL) 2.5 mg /3 mL [...] 1 capsule by mouth once daily. - ziprasidone (GEODON) 40 mg capsule Take 1 capsule by mouth at bedtime as needed. - Blood Pressure Monitor Home blood pressure monitor - cyclobenzaprine (FLEXERIL) 10 mg tablet Take 1 tablet by mouth twice daily as needed for muscle spasm. - ferrous sulfate (SLOW FE) 140 mg [...] supplies (tubing) Problem List As Of Date 04/10/2025 Noted Resolved TOBACCO USE DISORDER [F17.200] 06/29/2008 Anxiety state [F41.1] 10/19/2008 Hyperlipidemia [E78.5] 01/31/2009 Essential hypertension, benign [I10] 09/04/2009 Gastroesophageal reflux disease [K21.9] 12/26/2009 01/10/2021 Acute gastritis without mention of hemorrhage [*10/03/2010 01/03/2015 Pancreatitis chronic 05/26/2011 08/27/2017 COPD without exacerbation (HCC) [J44.9] 05/25/2012 Lumbar disc disease with radiculopathy [M51.16] 06/18/2012 Postmenopausal bleeding [N95.0] 12/07/2012 Ovarian cyst, right [N83.201] 12/27/2012 Alcoholic hepatitis without ascites [K70.10] 11/16/2013 Urine, incontinence, stress female [N39.3] 11/24/2014 HPV test positive [[id number]] 11/24/2014 Alcohol dependence in remission (HCC) [F10.21] [...] 01/10/2021 01/10/2021 Abdominal bloating [R14.0] 01/10/2021 01/10/2021 Acute on chronic respiratory failure with hypox*03/15/2025 Pulmonary nodule [R91.1] 03/16/2025 Leukocytosis [D72.829] 03/16/2025 Acute on chronic pancreatitis (HCC) [K85.90, K8*0 (more content not included)... Normal [facility] Pulmonary Visit Reporton Pulmonary Visit Report Normal [facility] 04-04-2025 [facility] Telephone (4CQ) GRACIE BANUELOS ([id number]) 1965 F Date Time Provider Department 04/04/25 MISBAH ELKINS 4CQ During your visit today, we recorded the following information about you: Rosy Blancas 04/04/2025 3:15 PM Signed Transitional Care Management (TCM) [facility] Provider Action / FYI: NA SUMMARY: Outreach type: INITIAL OUTREACH Discharge Network Status: In-Network Discharge Source of Patient: [facility] TCM Discharge Report Patient discharged from [facility] on 03.23.25. Admitted for acute on chronic respiratory failure with hypoxia. . . Contact made with patient: No, for Follow-up - end outreach and close encounter. Rosy Blancas April 04, 2025 3:15 PM Allergies As of Date: 04/04/2025 Noted Allergy Reaction BACTRIM (SULFAMETHOXAZOLE-TRIME TH*11/28/2022 4 - Hives HYDROCODONE 08/02/2020 9 - Itching PENICILLINS 07/07/2006 14 - Other: See Comments Comments: hives VALIUM (DIAZEPAM) 11/02/2013 14 - Other: See Comments Comments: cross reaction with alcohol addiction Date Reviewed: 03/23/2025 Reviewed by: Kerri Aaron RN - Fully Assessed Reason for Visit: Transition Of Care [4074] Cmt: Left V/m Prescriptions as of 04/04/2025 - albuterol HFA (VENTOLIN HFA) 90 mcg/actuation inhaler Inhale 2 puffs by mouth into the lungs four times a day as needed. - hydrOXYzine pamoate (VISTARIL) 25 mg capsule Take 1 capsule by mouth daily at bedtime. - lisinopril (ZESTRIL) 10 mg tablet Take 1 tablet by mouth once daily. - gabapentin (NEURONTIN) 300 mg capsule Take 1 capsule by mouth three times a day for 30 days. - simvastatin (ZOCOR) 20 mg tablet Take 1 tablet by mouth daily at bedtime. - albuterol (PROVENTIL) 2.5 mg /3 mL [...] 1 capsule by mouth once daily. - ziprasidone (GEODON) 40 mg capsule Take 1 capsule by mouth at bedtime as needed. - Blood Pressure Monitor Home blood pressure monitor - cyclobenzaprine (FLEXERIL) 10 mg tablet Take 1 tablet by mouth twice daily as needed for muscle spasm. - ferrous sulfate (SLOW FE) 140 mg [...] supplies (tubing) Problem List As Of Date 04/04/2025 Noted Resolved TOBACCO USE DISORDER [F17.200] 06/29/2008 Anxiety state [F41.1] 10/19/2008 Hyperlipidemia [E78.5] 01/31/2009 Essential hypertension, benign [I10] 09/04/2009 Gastroesophageal reflux disease [K21.9] 12/26/2009 01/10/2021 Acute gastritis without mention of hemorrhage [*10/03/2010 01/03/2015 Pancreatitis chronic 05/26/2011 08/27/2017 COPD without exacerbation (HCC) [J44.9] 05/25/2012 Lumbar disc disease with radiculopathy [M51.16] 06/18/2012 Postmenopausal bleeding [N95.0] 12/07/2012 Ovarian cyst, right [N83.201] 12/27/2012 Alcoholic hepatitis without ascites [K70.10] 11/16/2013 Urine, incontinence, stress female [N39.3] 11/24/2014 HPV test positive [[id number]] 11/24/2014 Alcohol dependence in remission (HCC) [F10.21] [...] 01/10/2021 01/10/2021 Abdominal bloating [R14.0] 01/10/2021 01/10/2021 Acute on chronic respiratory failure with hypox*03/15/2025 Pulmonary nodule [R91.1] 03/16/2025 Leukocytosis [D72.829] 03/16/2025 Acute on chronic pancreatitis (HCC) [K85.90, K8 (more content not included)... Normal [facility] CNPN Telephone (PODCCP) GRACIE BANUELOS ([id number]) 1965 F Date Time Provider Department 04/04/25 MISBAH ELKINS PODCCP During your visit today, we recorded the following information about you: Yuly [place] 04/04/2025 9:47 AM Signed Transitional Care Management (TCM) [facility] Provider Action / FYI: na SUMMARY: Outreach type: INITIAL OUTREACH Discharge Network Status: In-Network Discharge Source of Patient: [facility] TCM Discharge Report Patient discharged from [facility] on 03.23.25. Admitted for acute on chronic respiratory failure with hypoxia. . Contact made with patient: No - 2nd unsuccessful attempt - end outreach and close encounter. Yuly France April 04, 2025 9:47 AM Allergies As of Date: 04/04/2025 Noted Allergy Reaction BACTRIM (SULFAMETHOXAZOLE-TRIME TH*11/28/2022 4 - Hives HYDROCODONE 08/02/2020 9 - Itching PENICILLINS 07/07/2006 14 - Other: See Comments Comments: hives VALIUM (DIAZEPAM) 11/02/2013 14 - Other: See Comments Comments: cross reaction with alcohol addiction Date Reviewed: 03/23/2025 Reviewed by: Kerri Aaron RN - Fully Assessed Reason for Visit: Transition Of Care [4074] Prescriptions as of 04/04/2025 - albuterol HFA (VENTOLIN HFA) 90 mcg/actuation inhaler Inhale 2 puffs by mouth into the lungs four times a day as needed. - hydrOXYzine pamoate (VISTARIL) 25 mg capsule Take 1 capsule by mouth daily at bedtime. - lisinopril (ZESTRIL) 10 mg tablet Take 1 tablet by mouth once daily. - gabapentin (NEURONTIN) 300 mg capsule Take 1 capsule by mouth three times a day for 30 days. - simvastatin (ZOCOR) 20 mg tablet Take 1 tablet by mouth daily at bedtime. - albuterol (PROVENTIL) 2.5 mg /3 mL [...] 1 capsule by mouth once daily. - ziprasidone (GEODON) 40 mg capsule Take 1 capsule by mouth at bedtime as needed. - Blood Pressure Monitor Home blood pressure monitor - cyclobenzaprine (FLEXERIL) 10 mg tablet Take 1 tablet by mouth twice daily as needed for muscle spasm. - ferrous sulfate (SLOW FE) 140 mg [...] supplies (tubing) Problem List As Of Date 04/04/2025 Noted Resolved TOBACCO USE DISORDER [F17.200] 06/29/2008 Anxiety state [F41.1] 10/19/2008 Hyperlipidemia [E78.5] 01/31/2009 Essential hypertension, benign [I10] 09/04/2009 Gastroesophageal reflux disease [K21.9] 12/26/2009 01/10/2021 Acute gastritis without mention of hemorrhage [*10/03/2010 01/03/2015 Pancreatitis chronic 05/26/2011 08/27/2017 COPD without exacerbation (HCC) [J44.9] 05/25/2012 Lumbar disc disease with radiculopathy [M51.16] 06/18/2012 Postmenopausal bleeding [N95.0] 12/07/2012 Ovarian cyst, right [N83.201] 12/27/2012 Alcoholic hepatitis without ascites [K70.10] 11/16/2013 Urine, incontinence, stress female [N39.3] 11/24/2014 HPV test positive [[id number]] 11/24/2014 Alcohol dependence in remission (HCC) [F10.21] [...] 01/10/2021 01/10/2021 Abdominal bloating [R14.0] 01/10/2021 01/10/2021 Acute on chronic respiratory failure with hypox*03/15/2025 Pulmonary nodule [R91.1] 03/16/2025 Leukocytosis [D72.829] 03/16/2025 Acute on chronic pancreatitis (HCC) [K85.90, K8 (more content not included)... Normal [facility] CNPN Telephone (INTMWS) GRACIE BANUELOS ([id number]) 1965 F Date Time Provider Department 04/04/25 MISBAH ELKINS INTMWS During your visit today, we recorded the following information about you: Juan Borjas MA 04/04/2025 1:20 PM Signed Patient has ER F/U scheduled this afternoon at 3:40 PM with PCP. PCP will be out of the office at time of appointment AND requests patient to be r/s to a later date or with Soila. Unable to reach patient. Left VM to return call to office. Please assist patient with r/s. CHERELLE Philip Brittany L, MA 04/04/2025 4:31 PM Signed Patient r/s to 04/10/25 with TB. Juan Borjas MA Allergies As of Date: 04/04/2025 Noted Allergy Reaction BACTRIM (SULFAMETHOXAZOLE-TRIME TH*11/28/2022 4 - Hives HYDROCODONE 08/02/2020 9 - Itching PENICILLINS 07/07/2006 14 - Other: See Comments Comments: hives VALIUM (DIAZEPAM) 11/02/2013 14 - Other: See Comments Comments: cross reaction with alcohol addiction Date Reviewed: 03/23/2025 Reviewed by: Kerri Aaron RN - Fully Assessed Prescriptions as of 04/04/2025 - albuterol HFA (VENTOLIN HFA) 90 mcg/actuation inhaler Inhale 2 puffs by mouth into the lungs four times a day as needed. - hydrOXYzine pamoate (VISTARIL) 25 mg capsule Take 1 capsule by mouth daily at bedtime. - lisinopril (ZESTRIL) 10 mg tablet Take 1 tablet by mouth once daily. - gabapentin (NEURONTIN) 300 mg capsule Take 1 capsule by mouth three times a day for 30 days. - simvastatin (ZOCOR) 20 mg tablet Take 1 tablet by mouth daily at bedtime. - albuterol (PROVENTIL) 2.5 mg /3 mL [...] 1 capsule by mouth once daily. - ziprasidone (GEODON) 40 mg capsule Take 1 capsule by mouth at bedtime as needed. - Blood Pressure Monitor Home blood pressure monitor - cyclobenzaprine (FLEXERIL) 10 mg tablet Take 1 tablet by mouth twice daily as needed for muscle spasm. - ferrous sulfate (SLOW FE) 140 mg [...] supplies (tubing) Problem List As Of Date 04/04/2025 Noted Resolved TOBACCO USE DISORDER [F17.200] 06/29/2008 Anxiety state [F41.1] 10/19/2008 Hyperlipidemia [E78.5] 01/31/2009 Essential hypertension, benign [I10] 09/04/2009 Gastroesophageal reflux disease [K21.9] 12/26/2009 01/10/2021 Acute gastritis without mention of hemorrhage [*10/03/2010 01/03/2015 Pancreatitis chronic 05/26/2011 08/27/2017 COPD without exacerbation (HCC) [J44.9] 05/25/2012 Lumbar disc disease with radiculopathy [M51.16] 06/18/2012 Postmenopausal bleeding [N95.0] 12/07/2012 Ovarian cyst, right [N83.201] 12/27/2012 Alcoholic hepatitis without ascites [K70.10] 11/16/2013 Urine, incontinence, stress female [N39.3] 11/24/2014 HPV test positive [[id number]] 11/24/2014 Alcohol dependence in remission (HCC) [F10.21] [...] 01/10/2021 01/10/2021 Abdominal bloating [R14.0] 01/10/2021 01/10/2021 Acute on chronic respiratory failure with hypox*03/15/2025 Pulmonary nodule [R91.1] 03/16/2025 Leukocytosis [D72.829] 03/16/2025 Acute on chronic pancreatitis (HCC) [K85.90, K8*03/16/2025 Septic shock (HCC) [A41.9, R65.21] 03/16/2025 Tobacco abuse [Z72.0] 03/16/2025 Pneumonia [ (more content not included)... [facility]AN[facility] ([id number]) 1965 F Date Time Provider Department 04/04/25 MILLY SALEH During your visit today, we recorded the following information about you: Srikanth Nellie 04/04/2025 2:30 PM Signed Patient unaware that her appt with Milly today was cancelled and she is looking to reschedule, please advise. Allergies As of Date: 04/04/2025 Noted Allergy Reaction BACTRIM (SULFAMETHOXAZOLE-TRIME TH*11/28/2022 4 - Hives HYDROCODONE 08/02/2020 9 - Itching PENICILLINS 07/07/2006 14 - Other: See Comments Comments: hives VALIUM (DIAZEPAM) 11/02/2013 14 - Other: See Comments Comments: cross reaction with alcohol addiction Date Reviewed: 03/23/2025 Reviewed by: Kerri Aaron RN - Fully Assessed Reason for Visit: Appointment [186] Prescriptions as of 04/07/2025 - albuterol HFA (VENTOLIN HFA) 90 mcg/actuation inhaler Inhale 2 puffs by mouth into the lungs four times a day as needed. - hydrOXYzine pamoate (VISTARIL) 25 mg capsule Take 1 capsule by mouth daily at bedtime. - lisinopril (ZESTRIL) 10 mg tablet Take 1 tablet by mouth once daily. - gabapentin (NEURONTIN) 300 mg capsule Take 1 capsule by mouth three times a day for 30 days. - simvastatin (ZOCOR) 20 mg tablet Take 1 tablet by mouth daily at bedtime. - albuterol (PROVENTIL) 2.5 mg /3 mL [...] 1 capsule by mouth once daily. - ziprasidone (GEODON) 40 mg capsule Take 1 capsule by mouth at bedtime as needed. - Blood Pressure Monitor Home blood pressure monitor - cyclobenzaprine (FLEXERIL) 10 mg tablet Take 1 tablet by mouth twice daily as needed for muscle spasm. - ferrous sulfate (SLOW FE) 140 mg [...] supplies (tubing) Problem List As Of Date 04/04/2025 Noted Resolved TOBACCO USE DISORDER [F17.200] 06/29/2008 Anxiety state [F41.1] 10/19/2008 Hyperlipidemia [E78.5] 01/31/2009 Essential hypertension, benign [I10] 09/04/2009 Gastroesophageal reflux disease [K21.9] 12/26/2009 01/10/2021 Acute gastritis without mention of hemorrhage [*10/03/2010 01/03/2015 Pancreatitis chronic 05/26/2011 08/27/2017 COPD without exacerbation (HCC) [J44.9] 05/25/2012 Lumbar disc disease with radiculopathy [M51.16] 06/18/2012 Postmenopausal bleeding [N95.0] 12/07/2012 Ovarian cyst, right [N83.201] 12/27/2012 Alcoholic hepatitis without ascites [K70.10] 11/16/2013 Urine, incontinence, stress female [N39.3] 11/24/2014 HPV test positive [[id number]] 11/24/2014 Alcohol dependence in remission (HCC) [F10.21] [...] 01/10/2021 01/10/2021 Abdominal bloating [R14.0] 01/10/2021 01/10/2021 Acute on chronic respiratory failure with hypox*03/15/2025 Pulmonary nodule [R91.1] 03/16/2025 Leukocytosis [D72.829] 03/16/2025 Acute on chronic pancreatitis (HCC) [K85.90, K8*03/16/2025 Septic shock (HCC) [A41.9, R65.21] 03/16/2025 Tobacco abuse [Z72.0] 03/16/2025 Pneumonia [J18.9] 03/16/2025 Hypomagnesemia [E83.42] 03/16/2025 Hyperlactatemia [E87.20] 03/16/2025 Ventilator dependence (HCC) [Z99.11] 03/16/2025 Hypophosphataemia [E83.39] 03/17/2025 Hypokalemia [E87.6] 03/17/2025 Tachycardia [R00.0] 03/19/2025 Encounter Number: [id number] (more content not included)... [facility]DDQ[facility] GRACIE BANUELOS ([id number]) 1965 F Date Time Provider Department 03/29/25 JUAN SENIOR During your visit today, we recorded the following information about you: Dayana Bone 03/29/2025 3:25 PM Addendum Patient called the office with concerns about counter server diarrhea. Patient is not sure if it is nte medication gabapetion or a virus. Patient would like a call back. Please review and advise. Juan Mahan LPN 03/29/2025 3:52 PM Signed VM left on listed number to discuss symptoms. MCKENNA Le Brittany, LPN 04/04/2025 2:55 PM Signed Patient called back - discharged from hospital with Norovirus- discussed the diarrhea was likely from this. - Gracie asked when she should have repeat ERCP - stent management. I discussed that Dr. Farrell impression - repeat in 4 months ( June 2025) We placed orders for this- Gracie voiced it this could be done at [facility]- I explained that if there was an advanced endoscopist available - yes. She could also have this performed at [facility] for stent management- if this was closer for her- She will notify us. MCKENNA Le Ida 04/07/2025 11:23 AM Signed This patient is on our call list / scheduling pool to schedule at [facility]. We do not have [facility] available in [place]. we only do procedural sedation and will not do ERCP in our out patient surgery center. Please have someone from your office explain this to patient and schedule appropriately. When I spoke with patient she was very confused about the procedure she thought she was getting an EGD under procedural sedation. Call patient @ [phone] Allergies As of Date: 03/29/2025 Noted Allergy Reaction BACTRIM (SULFAMETHOXAZOLE-TRIME TH*11/28/2022 4 - Hives HYDROCODONE 08/02/2020 9 - Itching PENICILLINS 07/07/2006 14 - Other: See Comments Comments: hives VALIUM (DIAZEPAM) 11/02/2013 14 - Other: See Comments Comments: cross reaction with alcohol addiction Date Reviewed: 03/23/2025 Reviewed by: Kerri Aaron RN - Fully Assessed Reason for Visit: Patient Question [5944] Prescriptions as of 04/07/2025 - albuterol HFA (VENTOLIN HFA) 90 mcg/actuation inhaler Inhale 2 puffs by mouth into the lungs four times a day as needed. - hydrOXYzine pamoate (VISTARIL) 25 mg capsule Take 1 capsule by mouth daily at bedtime. - lisinopril (ZESTRIL) 10 mg tablet Take 1 tablet by mouth once daily. - gabapentin (NEURONTIN) 300 mg capsule Take 1 capsule by mouth three times a day for 30 days. - simvastatin (ZOCOR) 20 mg tablet Take 1 tablet by mouth daily at bedtime. - albuterol (PROVENTIL) 2.5 mg /3 mL [...] 1 capsule by mouth once daily. - ziprasidone (GEODON) 40 mg capsule Take 1 capsule by mouth at bedtime as needed. - Blood Pressure Monitor Home blood pressure monitor - cyclobenzaprine (FLEXERIL) 10 mg tablet Take 1 tablet by mouth twice daily as needed for muscle spasm. - ferrous sulfate (SLOW FE) 140 mg [...] supplies (tubing) Problem List As Of Date 03/29/2025 Noted Resolved TOBACCO USE DISORDER [F17.200] 06/29/2008 Anxiety state [F41.1] 10/19/2008 Hyperlipidemia [E78.5] 01/31/2009 Essential hypertension, benign [I10] 09/04/2009 Gastroesophageal reflux disease [K21.9] 12/26/2009 01/10/2021 Acute gastritis without mention of hemorrhage [*10/03/2010 01/03/2015 Pancreatitis chronic 05/26/2011 08/27/2017 COPD without exacerbation (HCC) [J44.9] 05/25/2012 Lumbar disc disease with radiculopathy [M51.16] 06/18/2012 Postmenopausal bleeding [N95.0] 12/07/2012 Ovarian cyst, right [N83.201] 12/27/2012 Alcoholic hepatitis without ascites [K70.10] 11/16/2013 (more content not included)... Normal [facility] CNPNon 03-28-2025 CNPN Telephone (PODCCP) GRACIE BANUELOS ([id number]) 1965 F Date Time Provider Department 03/28/25 HERMAN NEVAREZ PODCCP During your visit today, we recorded the following information about you: Herman Nevarez RN 03/28/2025 1:05 PM Signed Transitional Care Management (TCM) [facility] Monitoring Program Provider Action / FYI: N/A SUMMARY: Outreach type: INITIAL OUTREACH Discharge Network Status: In-Network Discharge Source of Patient: [facility] TCM Discharge Report Patient discharged from [facility] on 03/23/25. Admitted for acute on chronic respiratory failure with hypoxia. Contact made with patient: No - next outreach attempt will be on next . Herman Nevarez RN March 28, 2025 1:04 PM Allergies As of Date: 03/28/2025 Noted Allergy Reaction BACTRIM (SULFAMETHOXAZOLE-TRIME TH*11/28/2022 4 - Hives HYDROCODONE 08/02/2020 9 - Itching PENICILLINS 07/07/2006 14 - Other: See Comments Comments: hives VALIUM (DIAZEPAM) 11/02/2013 14 - Other: See Comments Comments: cross reaction with alcohol addiction Date Reviewed: 03/23/2025 Reviewed by: Kerri Aaron RN - Fully Assessed Reason for Visit: Transition Of Care [5240] Cmt: RC f/u discharge LVM Prescriptions as of 03/28/2025 - albuterol HFA (VENTOLIN HFA) 90 mcg/actuation inhaler Inhale 2 puffs by mouth into the lungs four times a day as needed. - hydrOXYzine pamoate (VISTARIL) 25 mg capsule Take 1 capsule by mouth daily at bedtime. - lisinopril (ZESTRIL) 10 mg tablet Take 1 tablet by mouth once daily. - gabapentin (NEURONTIN) 300 mg capsule Take 1 capsule by mouth three times a day for 30 days. - simvastatin (ZOCOR) 20 mg tablet Take 1 tablet by mouth daily at bedtime. - albuterol (PROVENTIL) 2.5 mg /3 mL [...] 1 capsule by mouth once daily. - ziprasidone (GEODON) 40 mg capsule Take 1 capsule by mouth at bedtime as needed. - Blood Pressure Monitor Home blood pressure monitor - cyclobenzaprine (FLEXERIL) 10 mg tablet Take 1 tablet by mouth twice daily as needed for muscle spasm. - ferrous sulfate (SLOW FE) 140 mg [...] supplies (tubing) Problem List As Of Date 03/28/2025 Noted Resolved TOBACCO USE DISORDER [F17.200] 06/29/2008 Anxiety state [F41.1] 10/19/2008 Hyperlipidemia [E78.5] 01/31/2009 Essential hypertension, benign [I10] 09/04/2009 Gastroesophageal reflux disease [K21.9] 12/26/2009 01/10/2021 Acute gastritis without mention of hemorrhage [*10/03/2010 01/03/2015 Pancreatitis chronic 05/26/2011 08/27/2017 COPD without exacerbation (HCC) [J44.9] 05/25/2012 Lumbar disc disease with radiculopathy [M51.16] 06/18/2012 Postmenopausal bleeding [N95.0] 12/07/2012 Ovarian cyst, right [N83.201] 12/27/2012 Alcoholic hepatitis without ascites [K70.10] 11/16/2013 Urine, incontinence, stress female [N39.3] 11/24/2014 HPV test positive [ZFH4103] 11/24/2014 Alcohol dependence in remission (HCC) [F10.21] [...] 01/10/2021 01/10/2021 Abdominal bloating [R14.0] 01/10/2021 01/10/2021 Acute on chronic respiratory failure with hypox*03/15/2025 Pulmonary nodule [R91.1] 03/16/2025 Leukocytosis [D72.829] 03/16/2025 Acute on chronic pancre (more content not included)... Normal [facility] Basic metabolic 2000 panelon 03-23-2025 Anion gap [Moles/Vol] 7 mmol/L Normal 5-16 [facility] Comment on above: Order Comment: Speci men Type: BLOOD SPECIMEN Ordering Facility: [facility] Address: [address] [id number] Performed By: #### 2 4323-8, 3040-3, 61138-1, 2777-1, 2571-8 #### [facility] CLIA [id number] [address] [place], [place] [address] [place] Calcium [Mass/Vol] 9.2 mg/dL Normal 8.5-10.5 [facility] Comment on above: Order Comment: Speci men Type: BLOOD SPECIMEN Ordering Facility: [facility] Address: [address] [place] [address] Performed By: #### 2 4323-8, 3040-3, 79054-1, 2777-1, 2571-8 #### [facility] CLIA [id number] [address] [place], [place] [address] [place] Chloride [Moles/Vol] 101 mmol/L Normal 98-107 [facility] Comment on above: Order Comment: Speci men Type: BLOOD SPECIMEN Ordering Facility: [facility] Address: [address] [place] [address] Performed By: #### 2 4323-8, 3040-3, 32597-2, 2777-1, 2571-8 #### [facility] CLIA [id number] [address] [place], [place] [address] [place] CO2 [Moles/Vol] 29 mmol/L Normal 21-32 [facility] Comment on above: Order Comment: Speci men Type: BLOOD SPECIMEN Ordering Facility: [facility] Address: [address] [place] [address] Performed By: #### 2 4323-8, 3040-3, 03691-7, 2777-1, 2571-8 #### [facility] CLIA [id number] [address] [place], [place] [address] [place] Creatinine [Mass/Vol] 0.89 mg/dL Normal 0.51-0.95 [facility] Comment on above: Order Comment: Speci men Type: BLOOD SPECIMEN Ordering Facility: [facility] Address: [address], [place] [address] Result Comment: Gretta ents receiving either N-Acetylcysteine (NAC) or Metamizole prior to venipuncture, may have falsely depressed results. Performed By: #### 2 4323-8, 3040-3, 20071-5, 2777-1, 2570-8 #### [facility] CLIA [id number] [address] [place], [place] [address] [place] Creatinine and Glomerular filtration rate.predicted panel (S/P/Bld) 74 mL/min/1.73m??? Normal >=60 [facility] Comment on above: Order Comment: Reggie fajardo Type: BLOOD SPECIMEN Ordering Facility: [facility] Address: [address] [id number] Result Comment: Pavan mated Glomerular Filtration Rate [...] actual GFR. Performed By: #### 2 4323-8, 3040-3, 85822-9, 2777-1, 2570-8 #### [facility] CLIA [id number] [address] [place], [place] [address] [place] Glucose [Mass/Vol] 109 mg/dL High 70-100 [facility] Comment on above: Order Comment: Reggie fajardo Type: BLOOD SPECIMEN Ordering Facility: [facility] Address: [address] [place] [address] Result Comment: The [place] [employer] Association (ADA) provides guidance for cutoff [...] Standards of Medical Care in Diabetes 2016, [place] [employer]. Diabetes Care. 2016.39(Suppl 1). Results may be falsely elevated after the administration of Sulfapyridine. Results may be falsely depressed after the administration of Sulfasalazine. Performed By: #### 2 4323-8, 3040-3, 11791-9, 2777-1, 2571-8 #### [facility] CLIA [id number] [address] [place], [place] [address] [place] Potassium [Moles/Vol] 4.9 mmol/L Normal 3.5-5.1 [facility] Comment on above: Order Comment: Speci men Type: BLOOD SPECIMEN Ordering Facility: [facility] Address: [address] [place] [address] Performed By: #### 2 4323-8, 3040-3, 93336-8, 7-1, 2571-8 #### [facility] CLIA [id number] [address] [place] [address] [place] [facility] Sodium [Moles/Vol] 137 mmol/L Normal 136-145 [facility] Comment on above: Order Comment: Speci men Type: BLOOD SPECIMEN Ordering Facility: [facility] Address: [address] [place] [address] Performed By: #### 2 4323-8, 3040-3, 28072-9, 7-1, 2571-8 #### [facility] CLIA [id number] [address] [place], [place] [address] [place] Urea nitrogen [Mass/Vol] 15 mg/dL Normal 7-26 [facility] Comment on above: Order Comment: Speci men Type: BLOOD SPECIMEN Ordering Facility: [facility] Address: [address] [place] [address] Performed By: #### 2 4323-8, 3040-3, 28141-6, 2777-1, 2571-8 #### [facility] CLIA [id number] [address] [place], [place] [address] [place] CBC panel Auto (Bld)on 03-23 Erythrocyte distribution width (RBC) [Ratio] 15.8 % High 11.5-15.0 [facility] Comment on above: Order Comment: Speci men Type: BLOOD SPECIMEN Ordering Facility: [facility] Address: [address] [place] [address] Performed By: #### 2 4323-8, 3040-3, 30172-9, 2777-1, 257-8 #### [facility] CLIA [id number] [address] [place] [address] [place] Hematocrit (Bld) [Volume fraction] 30.7 % Low 36.0-46.0 [facility] Comment on above: Order Comment: Kettyi men Type: BLOOD SPECIMEN Ordering Facility: [facility] Address: [address] [place] [address] Performed By: #### 2 4323-8, 3040-3, 76396-3, 2777-1, 257-8 #### [facility] CLIA [id number] [address] [place] [address] [place] Hemoglobin (Bld) [Mass/Vol] 9.3 g/dL Low 11.5-15.5 [facility] Comment on above: Order Comment: Kettyi tana Type: BLOOD SPECIMEN Ordering Facility: [facility] Address: [address] [place] [address] Performed By: #### 2 4323-8, 3040-3, 39941-1, 2777-1, 257-8 #### [facility] CLIA [id number] [address] [place], [place] [address] [place] MCH (RBC) [Entitic mass] 26.7 pg Normal 26.0-34.0 [facility] Comment on above: Order Comment: Kettyi men Type: BLOOD SPECIMEN Ordering Facility: [facility] Address: [address] [place] [address] Performed By: #### 2 4323-8, 3040-3, 25765-1, 2777-1, 257-8 #### [facility] CLIA [id number] [address] [place], [place] [address] [place] [facility] MCHC (RBC) [Mass/Vol] 30.3 g/dL Low 30.5-36.0 [facility] Comment on above: Order Comment: Speci men Type: BLOOD SPECIMEN Ordering Facility: [facility] Address: [address] [place] [address] Performed By: #### 2 4323-8, 3040-3, 43916-2, 2776-1, 2570-8 #### [facility] CLIA [id number] [address] [place], [place] [address] [place] MCV (RBC) [Entitic vol] 88.2 fL Normal 80.0-100.0 [facility] Comment on above: Order Comment: Speci men Type: BLOOD SPECIMEN Ordering Facility: [facility] Address: [address] [place] [address] Performed By: #### 2 4323-8, 3040-3, 66154-5, 2776-, 2570-8 #### [facility] CLIA [id number] [address] [place] [address] [place] Nucleated RBC (Bld) [#/Vol] 10*3/uL Normal <0.01 [facility] Comment on above: Order Comment: Speci men Type: BLOOD SPECIMEN Ordering Facility: [facility] Address: [address] [place] [address] Performed By: #### 2 4323-8, 3040-3, 51533-7, 277-, 2570-8 #### [facility] CLIA [id number] [address] [place], [place] [address] [place] Platelet mean volume (Bld) [Entitic vol] 10.4 fL Normal 9.0-12.7 [facility] Comment on above: Order Comment: Speci men Type: BLOOD SPECIMEN Ordering Facility: [facility] Address: [address] [place] [address] Performed By: #### 2 4323-8, 3040-3, 15524-9, 277-1, 2570-8 #### [facility] CLIA [id number] [address] [place] [address] [place] Platelets (Bld) [#/Vol] 373 10*3/uL Normal 150-400 [facility] Comment on above: Order Comment: Speci men Type: BLOOD SPECIMEN Ordering Facility: [facility] Address: [address] [place] [address] Performed By: #### 2 4323-8, 3040-3, 86317-0, 2777-1, 2571-8 #### [facility] CLIA [id number] [address] [place], [place] [address] [place] RBC (Bld) [#/Vol] 3.48 10*6/uL Low 3.90-5.20 [facility] Comment on above: Order Comment: Speci men Type: BLOOD SPECIMEN Ordering Facility: [facility] Address: [address] [place] [address] Performed By: #### 2 4323-8, 3040-3, 70763-8, 2777-1, 2571-8 #### [facility] CLIA [id number] [address] [place], [place] [address] [place] WBC (Bld) [#/Vol] 16.85 10*3/uL High 3.70-11.00 [facility] Comment on above: Order Comment: Speci men Type: BLOOD SPECIMEN Ordering Facility: [facility] Address: [address] [place] [address] Performed By: #### 2 4323-8, 3040-3, 77590-3, 2777-1, 2571-8 #### [facility] CLIA [id number] [address] [place], [place] [address] [place] [facility] CNDSon 03-23-2025 CNDS HNO ID: [id number] Author: GURJIT RAYO MD Service: Hospital Medicine Author Type: Physician Type: Discharge Summary Filed: 03/23/2025 13:51 Note Text: DISCHARGE SUMMARY PATIENT NAME: Gracie Banuelos ADMISSION DATE: 03/15/2025 DISCHARGE DATE: 03/23/2025 ATTENDING PHYSICIAN: Gurjit Rayo MD Code Status: Full Code Highest Readmission Risk Score: 15 The 30 day readmissions risk score is derived from an internally validated risk model which evaluates patient level characteristics, utilization history, medication orders and lab results up until the day of discharge. Patients with a score of 39 or above are considered highest risk for readmission. Specific patient level drivers will be listed at the bottom of the summary. CONSULTING TEAMS DURING HOSPITALIZATION: Pulmonology: Treatment Team: Attending Provider: Gurjit Rayo MD Consulting: Gerson Mccall MD Attending: CHAYITO AUGUSTO REASON FOR HOSPITALIZATION: Acute on chronic hypoxic respiratory failure DIAGNOSIS: Malnutrition Diagnosis supported by Registered Dietitian:Mild Protein-Calorie Malnutrition Based on: Insufficient Energy Intake Assessment: I have reviewed the result of the malnutrition assessment and plan and agree Plan: Diet, Supplements, Medications, Vitamin/Mineral Supplements Principal Problem: Acute on chronic respiratory failure with hypoxia (HCC) (POA: Yes) Active Problems: Anxiety state (POA: Yes) Hyperlipidemia (POA: Yes) Essential hypertension, benign (POA: Yes) COPD without exacerbation (HCC) (POA: Yes) Alcohol use disorder, moderate, dependence (HCC) (POA: Yes) Leukocytosis (POA: Yes) Acute on chronic pancreatitis (HCC) (POA: Yes) Septic shock (HCC) (POA: Yes) Tobacco abuse (POA: Yes) Pneumonia (POA: Yes) Hypomagnesemia (POA: Yes) Hyperlactatemia (POA: No) Ventilator dependence (HCC) (POA: Yes) Hypophosphataemia (POA: No) Hypokalemia (POA: No) Tachycardia (POA: No) Resolved Problems: * No resolved hospital problems. * ACTIVE PROBLEM LIST Tobacco Use Disorder Anxiety State Hyperlipidemia Essential Hypertension, Benign Copd Without Exacerbation (Hcc) Lumbar Disc Disease With Radiculopathy Postmenopausal Bleeding Ovarian Cyst, Right Alcoholic Hepatitis Without Ascites (Hcc) Urine, Incontinence, Stress Female Hpv Test Positive Pulmonary Emphysema (Hcc) Irritable Bowel Syndrome With Both Constipation and Diarrhea Alcohol Use Disorder, Moderate, Dependence (Hcc) Ddd (Degenerative Disc Disease), Cervical Chronic Recurrent Pancreatitis (Hcc) Reactive Depression Alcohol-Induced Chronic Pancreatitis (Hcc) Moderate Episode of Recurrent Major Depressive Disorder (Hcc) Acute On Chronic Respiratory Failure With Hypoxia (Hcc) Pulmonary Nodule Leukocytosis Acute On Chronic Pancreatitis (Hcc) Septic Shock (Hcc) Tobacco Abuse Pneumonia Hypomagnesemia Hyperlactatemia Ventilator Dependence (Hcc) Hypophosphataemia Hypokalemia Tachycardia OPERATIONS DURING HOSPITALIZATION: None PROCEDURES DURING HOSPITALIZATION: No procedures performed HOSPITAL COURSE: 59-year-old female with past medical history of hypertension, hyperlipidemia, alcohol abuse, anxiety, COPD with chronic hypoxic respiratory failure on 5 L at baseline, chronic pancreatitis status post ERCP with stent placement 03/10. Patient was transferred from [facility]. There she was found to have acute pancreatitis. She had a stent placed in the body of the pancreas however on CT scan at the other hospital she had new peripancreatic inflammation. She was alsoexperiencing acute hypoxic respiratory failure and was emergently intubated and transferred to [facility] ICU. She required vasopressor support due to septic shock and was noted to have bilateral pneumonia. She was extubated and transferred to the floors. She remained hemodynamically stable off pressors but had increasing oxygen requirements. She was followed by pulmonology and treated for bilateral pneumonia and COPD exacerbation and was subsequently able to wean oxygen back to her baseline of 5 L. She was cleared for discharge by pulmonology. 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 Transitions of Care Critical Issues: N/a LABS AND PROCEDURES PENDING AT DISCHARGE: No pending results. PATIENT CONDITION AT DISCHARGE: Stable DISCHARGE DISPOSITION: Home with Self Care Gen: alert and oriented, NAD, vitals reviewed Head/Neck: NCAT; trachea appears midline, no gross LAD ENT: EOMI grossly, anicteric sclerae; MMM Resp: normal respiratory effort, symmetric chest rise CV: RRR; extremities well perfused GI: non-distended; no TTP Ext: no clubbing, cyanosis or edema Skin: no new rash or lesions on limited visual exam Neuro/MSK: moves all extremities Psych: normal mood; appropriate affect INFORMATION PROVIDED TO PATIENT: Please (more content not included)... Normal [facility] CONSULT PROGon 03-23-2025 CONSULT PROG HNO ID: [id number] Author: ESME HA APRN.CNP Service: Pulmonary Disease Author Type: Nurse Practitioner Type: Consult Progress Note Filed: 03/23/2025 15:13 Note Text: PULMONARY PROGRESS NOTE SERVICE DATE: 03/23/2025 SERVICE TIME: 10:45 AM INTERVAL HPI: Sitting in chair without distress. Stable overnight and reports continued improvement in her symptoms. Currently on 5L NC with resting SpO2 97% and I lowered O2 to 4L at this time. RT Christopher in to see patient and informed of O2 change. PAST MEDICAL HISTORY Diagnosis Date Acute exacerbation of chronic obstructive airways disease (HCC) Alcohol dependence in remission ([facility]) 07/10/2015 Alcohol use disorder 08/27/2017 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 pancreatitis (HCC) Alcoholic hepatitis (HCC) 05/18/2012 Alcoholic liver disease (HCC) 11/16/2013 Anemia Anxiety with depression Arthritis Asthma (HCC) Chronic hypoxemic respiratory failure (HCC) COPD (chronic obstructive pulmonary disease) ([facility]) 05/25/2012 DDD (degenerative disc disease), cervical 09/03/2018 [...] to infectious organism 2017 Severe protein-calorie malnutrition ([facility]) 01/07/2019 Stage 3 severe COPD by GOLD classification ([facility]) 2018 Tobacco use greater than 30 years Unspecified hemorrhoids without mention of complication Urine, incontinence, stress female 11/24/2014 gabapentin (NEURONTIN) 300 mg capsule, Take 1 capsule by mouth three times a day for 30 days., Disp: 90 capsule, Rfl: 0 simvastatin (ZOCOR) 20 mg tablet, Take 1 tablet by mouth daily at bedtime., Disp: 30 tablet, Rfl: 11 colchicine 0.6 mg tablet, Take 2 pills x1 now then take 1 tablet BID until gone, Disp: 5 tablet, Rfl: 0 albuterol (PROVENTIL) 2.5 mg /3 mL (0.083 %) nebulizer solution, Use 3 mL via nebulizer one time only for 1 dose. Use over 5-15minutes., Disp: 3 mL, Rfl: 0 ondansetron orally disintegrating (ZOFRAN ODT) 4 mg disintegrating tablet, Take 1 tablet by mouth every 6 hours as needed for nausea/vomiting., Disp: 30 tablet, Rfl: [address] (PROTONIX) 40 mg tablet, Take 1 tablet by mouth once daily., Disp: 90 tablet, Rfl: 2 metoprolol tartrate, short acting, (LOPRESSOR) 25 mg tablet, Take 1 tablet by mouth two times a day., Disp: 180 tablet, Rfl: 3 amLODIPine (NORVASC) 5 mg tablet, Take 1 tablet by mouth once daily., Disp: 30 tablet, Rfl: 5 hydrOXYzine HCl (ATARAX) 25 mg tablet, Take 1 tablet by mouth three times a day as needed for itching/rash., Disp: 90 tablet, Rfl: 3 MUCINEX D MAXIMUM STRENGTH 120-1,200 mg tab ER 12 hr, Take 1 tablet by mouth as needed., Disp: 30 tablet, Rfl: 0 Cholecalciferol, Vitamin D3, 50 mcg (2,000 unit) cap, Take 1 capsule by mouth once daily., Disp: 90 capsule, Rfl: 2 predniSONE (DELTASONE) 20 mg tablet, Take 2 tablets by mouth once daily. (Patient not taking: Reported on 11/02/2024), Disp: 5 tablet, Rfl: 0 ziprasidone (GEODON) 40 mg capsule, Take 1 capsule by mouth at bedtime as needed., Disp: 30 capsule, Rfl: Benzonatate 200 mg capsule, Take 200 mg by mouth three times a day as needed. (Patient not taking: Reported on 11/07/2024), Disp: , Rfl: Blood Pressure Monitor, Home blood pressure monitor, Disp: 1 Each, Rfl: 0 cyclobenzaprine (FLEXERIL) 10 mg tablet, Take 1 tablet by mouth twice daily as needed for muscle spasm., Disp: 15 tablet, Rfl: 1 albuterol HFA (VENTOLIN HFA) 90 mcg/actuation inhaler, Inhale 2 Puffs as instructed four times daily as needed., Disp: 54 g, Rfl: 4 ferrous sulfate (SLOW FE) 140 mg (45 mg iron) TbER, Take 1 tablet by mouth twice daily with meals., Disp: 60 tablet, Rfl: 3 mirtazapine (REMERON) 45 mg tablet, Prescribed by Dr. Talamantes., Disp: , Rfl: multivitamin tablet, Take 1 tablet by mouth once daily., Disp: 30 tablet, Rfl: 11 ARIPiprazole (ABILIFY) 5 mg tablet, 5 mg once daily., Disp: , Rfl: OXYGEN, HOME THERAPY,, Inhale as instructed as directed. Patient is on 2-3 liters, Disp: , Rfl: COMPOUNDED PRESCRIPTION, Pulse Oximetry, Disp: 1 Device, Rfl: 0 COMPOUNDED PRESCRIPTION, nebulizer supplies (tubing), Disp: 1 Each, Rfl: 5 Current Facility-Administered Medications Medication Dose Route Frequency iv contrast (radiology procedure) INTRAVENOUS DIRECTED PRN heparin 5,000 Units injection 5,000 Units SUBCUTANEOUS q 12 H NaCl 0.9% iv flush bag 20 mL INTRAVENOUS PRN ipratropium-albuterol 3 mL nebulizer solution (DUONEB) 3 mL INHALATION QID ondansetron 4 mg tab(s) (ZOF (more content not included)... Normal [facility] Magnesium SerPl-mCncon 03-23 Magnesium [Mass/Vol] 1.8 mg/dL Normal 1.6-2.6 [facility] Comment on above: Order Comment: Reggie fajardo Type: BLOOD SPECIMEN Ordering Facility: [facility] Address: [address] [place] [address] Performed By: #### 2 4323-8, 3040-3, 21352-8, 2777-1, 2571-8 #### [facility] CLIA [id number] [address] [place] [address] [place] [facility] NT-proBNP SerPl-mCncon 03-23 Natriuretic peptide.B prohormone N-Terminal [Mass/Vol] 1171 pg/mL High <125 [facility] Comment on above: Order Comment: Reggie fajardo Type: BLOOD SPECIMEN Ordering Facility: [facility] Address: [address] [id number] Result Comment: NT-p roBNP results of less than 300 pg/mL likely rules out acute congestive heart failure with 99% predictive value. NOTE: These cutoff points are suggested for ACUTE CHF DIAGNOSIS only Less than 50 years\X09\ Greater than 450 pg/mL 50 - 75 years\X09\\X09\ Greater than 900 pg/mL Greater than 75 years\X09\ Greater than 1800 pg/mL Performed By: #### 2 4323-8, 3040-3, 44357-2, 2777-1, 2571-8 #### [facility] CLIA [id number] [address] [place], [place] [address] [place] NUTRITIONon 03-23-2025 NUTRITION HNO ID: [id number] Author: KIRSTEN GARCIA RD Service: ? Author Type: Registered Dietitian Type: Nutrition Filed: 03/23/2025 09:41 Note Text: NUTRITION THERAPY REASSESSMENT NOTE SERVICE DATE: 03/23/2025 SERVICE TIME: Start Time: 837 Nutrition Assessment: Recommended Malnutrition Diagnosis: Mild Protein-Calorie Malnutrition (03/23/25921 : Kirsten Garcia RD) In the context of: Acute Illness or Injury Based on: Insufficient Energy Intake Nutrition Diagnosis: Problem: Suboptimal protein/energy intake (in state of increased needs) Related to: Acute illness As evidenced by: Food/nutrition related history, Medical condition Care Plan: Continue current diet Supplements: Mighty Shake No Sugar Added Vitamins and Minerals: Thiamine, Multivitamin with minerals, Folic Acid Medications: Stool softener (recommend changing to prn or discontinuing. Currently ordered BID) Orders written and provider collaborated with: Dr Rayo- discussed reviewing meds/ diarrhea Monitor and Evaluation: Meet greater than 75% of estimated needs, Monitor tolerance to tube feeding, Monitor bowel function, Monitor labs, I/Os, vital signs, weight, Monitor fluid/electrolyte balance Discharge Recommendations: Diet, Oral Supplements Diet: Heart healthy, 4-6 small frequent, high kcals, high protein meals daily Oral Supplements: Continue high protein, high kcals ONS 1-2 times daily Interval History: 59 yo f continues to receive treatment for acute resp failure 2/2 bilat pna, on 6L NC. Pulmonology following. +Norovirus. Pt initially admitted to ICU w VDRF, extubated 03/17. +CIWA. PMH: HTN, HLD, EtOH abuse, anxiety, COPD with chronic hypoxic respiratory failure on 5 L at baseline, pulmonary emphysema, chronic pancreatitis s/p ERCP with stent placement 03/10. IBS, GERD. Intake History: Nutrition Intake Prior to Admission: Less than 75% estimated energy needs greater than or equal to 1 month (Pt reports poor appetite and intake since passing of 10mo ago. Eats 1 meal daily and few small snacks. Lives w family. No ONS daily.) Current Nutrition Intake: Less than 75% estimated energy needs Current Intake Over time: Greater than or equal to 7 days Pt reports improving appetite, consistently consuming 50-75% of meals provided. Amenable to try MS SB (Pt requests strawberry ONS only). Dosing Weight: 60.8 kg (134 lb) Dosing Weight Type: Current weight Estimated kilocalorie needs: 2060-4829 Calorie Calculation Method: [place] (with activity factor) Estimated protein needs (grams): 75-90 Grams protein determined by: 1.2 - 1.5 g/kg Diet Orders (From admission, onward) Start Ordered 03/18/25 0815 DIET REGULAR START NOW 03/18/25 0810 Anthropometrics: Height: 165.1 cm (5' 5) Weight: 60.7 kg (133 lb 13.1 oz) Usual Weight: 62.1 kg (137 lb) 12/19/24 Usual Weight Obtained From: Chart Review Body mass index is 22.27 kg/m?. Weight change percentage over time: 2% loss x 3 mo Weight Change: Potentially clinically significant but does not meet criteria to support malnutrition diagnosis Last Wt 03/21/25 : 60.7 kg (133 lb 13.1 oz) 03/10/25 : 59 kg (130 lb) 01/13/25 : 62.6 kg (138 lb) 12/19/24 : 62.1 kg (137 lb) 11/02/24 : 62.6 kg (138 lb) 08/15/24 : 64.4 kg (142 lb) 08/10/24 : 64.4 kg (142 lb) 08/05/24 : 65 kg (143 lb 4.8 oz) 05/18/24 : 60.3 kg (133 lb) Physical Exam: Subcutaneous fat loss: No Subcutaneous Fat Loss Muscle loss: No Muscle Loss Potential micronutrient deficiency: Teeth Edema/Ascites: No edema, No ascites GI Symptoms: Nausea, Anorexia, Diarrhea Stool Amount: Improved (soft bms, less often.) Potential Signs of Inflammation: Chronic condition, Hyperglycemia, Tachycardia, Imaging studies, Leukocytosis, Microbiologic cultures Lines, Drains, and Airways None MNT Billing: $ Reassessment: 1 unit Time Spent (mins): 9 SIGNATURE: Kirsten Garcia RD PATIENT NAME: Gracie Banuelos DATE: March 23, 2025 TIME: 9:31 AM Normal [facility] Basic metabolic 2000 panelon 03-22-2025 Anion gap [Moles/Vol] 9 mmol/L Normal 5-16 [facility] Comment on above: Order Comment: Speci men Type: BLOOD SPECIMEN Ordering Facility: [facility] Address: [address] [place] [address] Performed By: #### 2 4323-8, 3040-3, 60131-1, 2776-1, 257-8 #### [facility] CLIA [id number] [address] [place], [place] [address] [place] Calcium [Mass/Vol] 9.6 mg/dL Normal 8.5-10.5 [facility] Comment on above: Order Comment: Speci men Type: BLOOD SPECIMEN Ordering Facility: [facility] Address: [address] [place] [address] Performed By: #### 2 4323-8, 3040-3, 54268-2, 2776-1, 257-8 #### [facility] CLIA [id number] [address] [place] [address] [place] Chloride [Moles/Vol] 99 mmol/L Normal 98-107 [facility] Comment on above: Order Comment: Speci men Type: BLOOD SPECIMEN Ordering Facility: [facility] Address: [address] [place], [place] [id number] Performed By: #### 2 4323-8, 3040-3, 55123-9, 2776-1, 2571-8 #### [facility] CLIA [id number] [address] [place] [address] [place] CO2 [Moles/Vol] 29 mmol/L Normal 21-32 [facility] Comment on above: Order Comment: Speci men Type: BLOOD SPECIMEN Ordering Facility: [facility] Address: [address] [place], [place] [address] Performed By: #### 2 4323-8, 3040-3, 83872-4, 2777-1, 2571-8 #### [facility] CLIA [id number] [address] [place] [address] [place] Creatinine [Mass/Vol] 0.77 mg/dL Normal 0.51-0.95 [facility] Comment on above: Order Comment: Reggie fajardo Type: BLOOD SPECIMEN Ordering Facility: [facility] Address: [address] [place] [address] Result Comment: Gretta ents receiving either N-Acetylcysteine (NAC) or Metamizole prior to venipuncture, may have falsely depressed results. Performed By: #### 2 4323-8, 3040-3, 30714-0, 2776-09, 2571-04 #### [facility] CLIA [id number] [address] [place] [address] Creatinine and Glomerular filtration rate.predicted panel (S/P/Bld) 88 mL/min/1.73m??? Normal >=60 [facility] Comment on above: Order Comment: Reggie fajardo Type: BLOOD SPECIMEN Ordering Facility: [facility] Address: [address] [place] [address] Result Comment: Pavan mated Glomerular Filtration Rate [...] actual GFR. Performed By: #### 2 4323-8, 3040-3, 43844-6, 2776-09, 2571-04 #### [facility] CLIA [id number] [address] [place], [place] [address] [place] Glucose [Mass/Vol] 102 mg/dL High 70-100 [facility] Comment on above: Order Comment: Reggie fajardo Type: BLOOD SPECIMEN Ordering Facility: [facility] Address: [address] [place] [address] Result Comment: The [place] [employer] Association (ADA) provides guidance for cutoff [...] Standards of Medical Care in Diabetes 2016, [place] [employer]. Diabetes Care. 2016.39(Suppl 1). Results may be falsely elevated after the administration of Sulfapyridine. Results may be falsely depressed after the administration of Sulfasalazine. Performed By: #### 2 4323-8, 3040-3, 31654-7, 2776-09, 2571-04 #### [facility] CLIA [id number] [address] [place] [address] [place] Potassium [Moles/Vol] 4.9 mmol/L Normal 3.5-5.1 [facility] Comment on above: Order Comment: Speci men Type: BLOOD SPECIMEN Ordering Facility: [facility] Address: [address] [place], [place] [address] Performed By: #### 2 4323-8, 3040-3, 70057-7, 2776-09, 2571-04 #### [facility] CLIA [id number] [address] [place], [place] [address] [place] Sodium [Moles/Vol] 137 mmol/L Normal 136-145 [facility] Comment on above: Order Comment: Speci men Type: BLOOD SPECIMEN Ordering Facility: [facility] Address: [address] [place] [address] Performed By: #### 2 4323-8, 3040-3, 27744-0, 2776-09, 2571-04 #### [facility] CLIA [id number] [address] [place], [place] [address] [place] Urea nitrogen [Mass/Vol] 12 mg/dL Normal 7-26 [facility] Comment on above: Order Comment: Speci men Type: BLOOD SPECIMEN Ordering Facility: [facility] Address: [facility] [place] [address] Performed By: #### 2 4323-8, 3040-3, 67434-9, 2776-1, 8 #### [facility] CLIA [id number] [address] [place], [place] [address] [place] CBC panel Auto (Bld)on 03-22 Erythrocyte distribution width (RBC) [Ratio] 15.4 % High 11.5-15.0 [facility] Comment on above: Order Comment: Speci men Type: BLOOD SPECIMEN Ordering Facility: [facility] Address: [facility] [place] [address] Performed By: #### 2 4323-8, 0-3, 96089-9, 2776-09, 8 #### [facility] CLIA [id number] [address] [place], [place] [address] [place] Hematocrit (Bld) [Volume fraction] 33.7 % Low 36.0-46.0 [facility] Comment on above: Order Comment: Speci men Type: BLOOD SPECIMEN Ordering Facility: [facility] Address: [facility] [place] [address] Performed By: #### 2 4323-8, 0-3, 30253-2, 1, 8 #### [facility] CLIA [id number] [address] [place], [place] [address] [place] Hemoglobin (Bld) [Mass/Vol] 10.2 g/dL Low 11.5-15.5 [facility] Comment on above: Order Comment: Speci men Type: BLOOD SPECIMEN Ordering Facility: [facility] Address: [facility] [place] [address] Performed By: #### 2 4323-8, 3040-3, 38665-0, 2776-1, 8 #### [facility] CLIA [id number] [address] [place], [place] [address] [place] MCH (RBC) [Entitic mass] 26.4 pg Normal 26.0-34.0 [facility] Comment on above: Order Comment: Speci men Type: BLOOD SPECIMEN Ordering Facility: [facility] Address: [address] [place] [address] Performed By: #### 2 4323-8, 3040-3, 00464-5, 7-1, 257-8 #### [facility] CLIA [id number] [address] [place], [place] [address] [place] MCHC (RBC) [Mass/Vol] 30.3 g/dL Low 30.5-36.0 [facility] Comment on above: Order Comment: Speci men Type: BLOOD SPECIMEN Ordering Facility: [facility] Address: [address] [place] [address] Performed By: #### 2 4323-8, 3040-3, 93169-0, 2776-1, 257-8 #### [facility] CLIA [id number] [address] [place] [address] [place] [facility] MCV (RBC) [Entitic vol] 87.3 fL Normal 80.0-100.0 [facility] Comment on above: Order Comment: Speci men Type: BLOOD SPECIMEN Ordering Facility: [facility] Address: [address] [place] [address] Performed By: #### 2 4323-8, 3040-3, 95133-4, 2776-1, 2571-8 #### [facility] CLIA [id number] [address] [place] [address] [place] Nucleated RBC (Bld) [#/Vol] 10*3/uL Normal <0.01 [facility] Comment on above: Order Comment: Speci men Type: BLOOD SPECIMEN Ordering Facility: [facility] Address: [address] [place] [address] Performed By: #### 2 4323-8, 3040-3, 85351-6, 7-1, 2571-8 #### [facility] CLIA [id number] [address] [place], [place] [address] [place] Platelet mean volume (Bld) [Entitic vol] 10.2 fL Normal 9.0-12.7 [facility] Comment on above: Order Comment: Speci men Type: BLOOD SPECIMEN Ordering Facility: [facility] Address: [address] [place] [address] Performed By: #### 2 4323-8, 3040-3, 59786-0, 2777-1, 2571-8 #### [facility] CLIA [id number] [address] [place] [address] [place] Platelets (Bld) [#/Vol] 411 10*3/uL High 150-400 [facility] Comment on above: Order Comment: Speci men Type: BLOOD SPECIMEN Ordering Facility: [facility] Address: [address] [place] [address] Performed By: #### 2 4323-8, 3040-3, 81677-1, 2777-1, 257-8 #### [facility] CLIA [id number] [address] [place] [address] [place] RBC (Bld) [#/Vol] 3.86 10*6/uL Low 3.90-5.20 [facility] Comment on above: Order Comment: Speci men Type: BLOOD SPECIMEN Ordering Facility: [facility] Address: [address] [place] [address] Performed By: #### 2 4323-8, 3040-3, 73328-5, 2777-1, 2571-8 #### [facility] CLIA [id number] [address] [place], [place] [address] [place] WBC (Bld) [#/Vol] 17.90 10*3/uL High 3.70-11.00 [facility] Comment on above: Order Comment: Speci men Type: BLOOD SPECIMEN Ordering Facility: [facility] Address: [address] [place] [address] Performed By: #### 2 4323-8, 3040-3, 62187-7, 2777-1, 2571-8 #### [facility] CLIA [id number] [address] [place] [address] [place] CONSULT PROGon 03-22-2025 CONSULT PROG HNO ID: [id number] Author: ESME HA APRN.IGOR Service: Pulmonary Disease Author Type: Nurse Practitioner Type: Consult Progress Note Filed: 03/22/2025 12:36 Note Text: PULMONARY PROGRESS NOTE SERVICE DATE: 03/22/2025 SERVICE TIME: 12:24 PM INTERVAL HPI: Sitting up in bed without distress. Reports improved breathing, feels she is clearing mucus well. Complains of watery rhinorrhea. Currently 96% on 7L cool HFNC and I lowered O2 to 6L. PAST MEDICAL HISTORY Diagnosis Date Acute exacerbation [...] Stage 3 severe COPD by GOLD classification ([facility]) 2018 Tobacco use greater than 30 years Unspecified hemorrhoids without mention of complication Urine, incontinence, stress female 11/24/2014 gabapentin (NEURONTIN) 300 mg capsule, Take 1 capsule by mouth three times a day for 30 days., Disp: 90 capsule, Rfl: 0 simvastatin (ZOCOR) 20 mg tablet, Take 1 tablet by mouth daily at bedtime., Disp: 30 tablet, Rfl: 11 colchicine 0.6 mg tablet, Take 2 pills x1 now then take 1 tablet BID until gone, Disp: 5 tablet, Rfl: 0 albuterol (PROVENTIL) 2.5 mg /3 mL (0.083 %) nebulizer solution, Use 3 mL via nebulizer one time only for 1 dose. Use over 5-15minutes., Disp: 3 mL, Rfl: 0 ondansetron orally disintegrating (ZOFRAN ODT) 4 mg disintegrating tablet, Take 1 tablet by mouth every 6 hours as needed for nausea/vomiting., Disp: 30 tablet, Rfl: [address] (PROTONIX) 40 mg tablet, Take 1 tablet by mouth once daily., Disp: 90 tablet, Rfl: 2 metoprolol tartrate, short acting, (LOPRESSOR) 25 mg tablet, Take 1 tablet by mouth two times a day., Disp: 180 tablet, Rfl: 3 amLODIPine (NORVASC) 5 mg tablet, Take 1 tablet by mouth once daily., Disp: 30 tablet, Rfl: 5 hydrOXYzine HCl (ATARAX) 25 mg tablet, Take 1 tablet by mouth three times a day as needed for itching/rash., Disp: 90 tablet, Rfl: 3 MUCINEX D MAXIMUM STRENGTH 120-1,200 mg tab ER 12 hr, Take 1 tablet by mouth as needed., Disp: 30 tablet, Rfl: 0 Cholecalciferol, Vitamin D3, 50 mcg (2,000 unit) cap, Take 1 capsule by mouth once daily., Disp: 90 capsule, Rfl: 2 predniSONE (DELTASONE) 20 mg tablet, Take 2 tablets by mouth once daily. (Patient not taking: Reported on 11/02/2024), Disp: 5 tablet, Rfl: 0 ziprasidone (GEODON) 40 mg capsule, Take 1 capsule by mouth at bedtime as needed., Disp: 30 capsule, Rfl: Benzonatate 200 mg capsule, Take 200 mg by mouth three times a day as needed. (Patient not taking: Reported on 11/07/2024), Disp: , Rfl: Blood Pressure Monitor, Home blood pressure monitor, Disp: 1 Each, Rfl: 0 cyclobenzaprine (FLEXERIL) 10 mg tablet, Take 1 tablet by mouth twice daily as needed for muscle spasm., Disp: 15 tablet, Rfl: 1 albuterol HFA (VENTOLIN HFA) 90 mcg/actuation inhaler, Inhale 2 Puffs as instructed four times daily as needed., Disp: 54 g, Rfl: 4 ferrous sulfate (SLOW FE) 140 mg (45 mg iron) TbER, Take 1 tablet by mouth twice daily with meals., Disp: 60 tablet, Rfl: 3 mirtazapine (REMERON) 45 mg tablet, Prescribed by Dr. Talamantes., Disp: , Rfl: multivitamin tablet, Take 1 tablet by mouth once daily., Disp: 30 tablet, Rfl: 11 ARIPiprazole (ABILIFY) 5 mg tablet, 5 mg once daily., Disp: , Rfl: OXYGEN, HOME THERAPY,, Inhale as instructed as directed. Patient is on 2-3 liters, Disp: , Rfl: COMPOUNDED PRESCRIPTION, Pulse Oximetry, Disp: 1 Device, Rfl: 0 COMPOUNDED PRESCRIPTION, nebulizer supplies (tubing), Disp: 1 Each, Rfl: 5 Current Facility-Administered Medications Medication Dose Route Frequency iv contrast (radiology procedure) INTRAVENOUS DIRECTED PRN heparin 5,000 Units injection 5,000 Units SUBCUTANEOUS q 12 H NaCl 0.9% iv flush bag 20 mL INTRAVENOUS PRN ipratropium-albuterol 3 mL nebulizer solution (DUONEB) 3 mL INHALATION QID ondansetron 4 mg tab(s) (ZOFRAN) 4 mg ORAL q 6 H PRN Or ondansetron (PF) 4 mg (more content not included)... Normal [facility] Magnesium SerPl-ncon 03-22 Magnesium [Mass/Vol] 1.9 mg/dL Normal 1.6-2.6 [facility] Comment on above: Order Comment: Speci men Type: BLOOD SPECIMEN Ordering Facility: [facility] Address: [address] [place] [address] Performed By: #### 2 4323-8, 3040-3, 82594-8, 2777-1, 2571-8 #### [facility] CLIA [id number] [address] [place] [address] OF [place] THERAPY NTon 03-22-2025 THERAPY NT HNO ID: [id number] Author: KERMIT MAGALLON PT Service: Physical Therapy Author Type: Physical Therapist Type: Therapy (PT/OT/Speech/Resp) Filed: 03/22/2025 10:55 Note Text: Physical Therapy Evaluation Summary SERVICE DATE: 03/22/2025 SERVICE TIME: 948 to 1016 ROOM: [place] [address] PT 6 Clicks Score: 22 DISCHARGE RECOMMENDATIONS Home PT Anticipated Discharge Needs: Physical Assist at Home Physical Assist at Home for: Cleaning, Laundry, Meals, Shopping, Transportation Recommended Discharge Equipment: Wheeled Walker (*does not own this device*) ASSESSMENT Response to Therapy Interventions: Good Participation in Activities, Improved Tolerance for Activity Pt. mobilizing well showing no significant SOB and SpO2 maintained >90% on 7L. Pt. very motivated, anticipate home with family support + HH for continued strengthening/endurance training. Recommend WW for discharge, does not own this device. PRECAUTIONS Fall Risk, Bed/Chair Alarm 7L, Norovirus CURRENT HOSPITAL COURSE Pt. admitted from outside facility with Acute on chronic respiratory failure with hypoxia, septic shock, acute on chronic pancreatitis. (+) Norovirus. Extubated 03/17. Txfer to [facility] 03/18. Relevant Past Medical History: chronic pancreatitis, alcoholic hepatitis, chronic hypoxic respiratory failure (5L baseline) HOME LIVING Patient Lives With: Family, Other: See Comment Comments: Will be discharging to sister's home. Home environment provide is sister's home. Assistance Available: 24-Hour, Other: See Comment Comments: sister, [id number]-[id number] and cousin Entry To Home: Stairs, With Rail Number Of Stairs Into Home: 3 Number Of Stairs To Bed/Bath: 0 Tub/Shower Type: tub/shower combo + shower chair + grabbar Laundry: in basement, family to complete Equipment Owned: Home Oxygen, Grab Bars- Shower, Shower Chair, Cane PRIOR FUNCTIONAL LEVEL Within Functional Limits Pt. reports IND ambulation using no device. IND ADLs, shares IADLs with family. 5L baseline O2. Denies recent falls. SUBJECTIVE Pt. easily agreeable to therapy. EAger to ambulate. Denies pain currently. THERAPY DIAGNOSIS Reduced mobility-other, Muscle Weakness (generalized) TREATMENT INTERVENTIONS Evaluation, Therapeutic Activity (32497) Timed Code Treatment (minutes): 10 Skilled Treatment Time (minutes): 28 TRAINING AND EDUCATION PROVIDED Bed Mobility, Benefits of In-Hospital Mobility, Role of Physical Therapy, Sitting Balance, Standing Balance, Transfers, Expected Functional Level, Falls Prevention THERAPEUTIC SKILLS USED Assessment of Tolerance Including Vitals Response to Activity, Cuing Verbal, Physical Assist, Teach-Back for Education FUNCTIONAL STATUS Bed Mobility Sit to Supine: Supervision Transfers Sit To Stand: Supervision, Verbal Cues Only Stand To Sit: Supervision, Verbal Cues Only Bed to Chair Gait Minimal Assistance, Additional Information v/c for sequencing, line management, monitoring of SpO2. Decreased gait speed. No significant SOB, SpO2 92% Gait Device: Wheeled Walker General Deviations/Observations : Christin decreased Gait Distance (feet): 60 Stairs GOALS Patient will demonstrate progress with functional mobility to allow safe discharge to home with available support and/or physical assistance. Rolling with: Modified Independent Transfer Supine to/from Sit with: Modified Independent Transfer Sit to/from Stand with: Modified Independent Ambulate with: Modified Independent Distance: 80 Device: Wheeled Walker Ambulate Up and Down Steps with: Supervision Number of Steps: 3 Device: Rail Rehab Potential: Good Good Rehab Potential Due To: Current objective clinical presentation, Good overall health status, Good motivation ACUTE CARE TREATMENT PLAN PT Frequency: 5 Times Per Week Treatment Interventions: Education, Self Care / Home Management, Strengthening, Functional Mobility Training, Balance Training, Neuromuscular Re-education SIGNATURE: Kermit Magallon PT PATIENT NAME: Gracie Banuelos DATE: March 22, 2025 TIME: 10:55 AM Normal [facility] XR CHEST 1V FRONTALon 2024 XR CHEST 1V FRONTAL * * *Final Report* * * DATE OF EXAM: Mar 22 2025 4:06PM RHX [id number] - XR CHEST 1V FRONTAL / PROCEDURE REASON: Pneumonia/aspiration * * * * Physician Interpretation * * * * EXAMINATION: CHEST RADIOGRAPH (SINGLE VIEW AP OR PA) CLINICAL HISTORY: Pneumonia/aspiration MQ: XC1_5 Comparison: 03/19/2025 RESULT: Lines, tubes, and devices: None. Lungs and pleura: Emphysematous changes. Stable trace left effusion and left lower lobe atelectasis. No new airspace disease or pneumothorax. Cardiomediastinal silhouette: Normal cardiomediastinal silhouette. Other: No acute osseous change. IMPRESSION: Stable trace left pleural effusion and left lobar atelectasis. Specialist Managers: BABATUNDE Transcribe Date/Time: Mar 23 2025 6:52A Dictated by : OZZY LATHAM MD This examination was interpreted and the report reviewed and electronically signed by: OZZY LATHAM MD on Mar 23 2025 6:55AM EST [id number] Normal [facility] Basic metabolic 2000 panelon 03-21-2025 Anion gap [Moles/Vol] 8 mmol/L Normal 5-16 [facility] Comment on above: Order Comment: Speci men Type: BLOOD SPECIMEN Ordering Facility: [facility] Address: [address] [place] [address] Performed By: #### 2 4323-8, 3040-3, 79751-4, 2776-1, 257-8 #### [facility] CLIA [id number] [address] [place], [place] [address] [place] Calcium [Mass/Vol] 9.5 mg/dL Normal 8.5-10.5 [facility] Comment on above: Order Comment: Speci men Type: BLOOD SPECIMEN Ordering Facility: [facility] Address: [address] [place] [address] Performed By: #### 2 4323-8, 3040-3, 06480-5, 2776-1, 2570-8 #### [facility] CLIA [id number] [address] [place] [address] [place] Chloride [Moles/Vol] 98 mmol/L Normal 98-107 [facility] Comment on above: Order Comment: Speci men Type: BLOOD SPECIMEN Ordering Facility: [facility] Address: [address] [place] [address] Performed By: #### 2 4323-8, 3040-3, 51005-7, 2776-1, 257-8 #### [facility] CLIA [id number] [address] [place] [address] [place] CO2 [Moles/Vol] 31 mmol/L Normal 21-32 [facility] Comment on above: Order Comment: Speci men Type: BLOOD SPECIMEN Ordering Facility: [facility] Address: [address] [place], [place] [address] Performed By: #### 2 4323-8, 3040-3, 91667-9, 2776-1, 257-8 #### [facility] CLIA [id number] [address] [place] [address] [place] Creatinine [Mass/Vol] 1.03 mg/dL High 0.51-0.95 [facility] Comment on above: Order Comment: Reggie fajardo Type: BLOOD SPECIMEN Ordering Facility: [facility] Address: [address] [place] [address] Result Comment: Gretta ents receiving either N-Acetylcysteine (NAC) or Metamizole prior to venipuncture, may have falsely depressed results. Performed By: #### 2 4323-8, 3040-3, 66725-5, 2776-09, 2571-04 #### [facility] CLIA [id number] [address] [place] [address] Creatinine and Glomerular filtration rate.predicted panel (S/P/Bld) 62 mL/min/1.73m??? Normal >=60 [facility] Comment on above: Order Comment: Reggie fajardo Type: BLOOD SPECIMEN Ordering Facility: [facility] Address: [address] [place] [address] Result Comment: Pavan mated Glomerular Filtration Rate [...] actual GFR. Performed By: #### 2 4323-8, 3040-3, 25594-8, 2776-09, 2571-04 #### [facility] CLIA [id number] [address] [place], [place] [address] [place] Glucose [Mass/Vol] 105 mg/dL High 70-100 [facility] Comment on above: Order Comment: Reggie fajardo Type: BLOOD SPECIMEN Ordering Facility: [facility] Address: [address] [place] [address] Result Comment: The [place] [employer] (ADA) provides guidance for cutoff [...] Standards of Medical Care in Diabetes 2016, [place] [employer]. Diabetes Care. 2016.39(Suppl 1). Results may be falsely elevated after the administration of Sulfapyridine. Results may be falsely depressed after the administration of Sulfasalazine. Performed By: #### 2 4323-8, 3040-3, 87770-6, 2776-09, 2571-04 #### [facility] CLIA [id number] [address] [place] [address] [place] Potassium [Moles/Vol] 4.4 mmol/L Normal 3.5-5.1 [facility] Comment on above: Order Comment: Speci men Type: BLOOD SPECIMEN Ordering Facility: [facility] Address: [address] [place], [place] [address] Performed By: #### 2 4323-8, 3040-3, 49602-3, 2776-09, 2571-04 #### [facility] CLIA [id number] [address] [place] [address] [place] Sodium [Moles/Vol] 137 mmol/L Normal 136-145 [facility] Comment on above: Order Comment: Speci men Type: BLOOD SPECIMEN Ordering Facility: [facility] Address: [address] [place], [place] [address] Performed By: #### 2 4323-8, 3040-3, 73862-5, 2776-09, 2571-04 #### [facility] CLIA [id number] [address] [place] [address] [place] Urea nitrogen [Mass/Vol] 17 mg/dL Normal 7-26 [facility] Comment on above: Order Comment: Speci men Type: BLOOD SPECIMEN Ordering Facility: [facility] Address: [facility] [place] [id number] Performed By: #### 2 4323-8, 3040-3, 64857-3, 1, 8 #### [facility] CLIA [id number] [address] [place], [place] [address] [place] CBC panel Auto (Bld)on 03-21 Erythrocyte distribution width (RBC) [Ratio] 15.3 % High 11.5-15.0 [facility] Comment on above: Order Comment: Speci men Type: BLOOD SPECIMEN Ordering Facility: [facility] Address: [facility] [place] [address] Performed By: #### 2 4323-8, 0-3, 52396-6, 2776-09, 8 #### [facility] CLIA [id number] [address] [place], [place] [address] [place] Hematocrit (Bld) [Volume fraction] 33.7 % Low 36.0-46.0 [facility] Comment on above: Order Comment: Speci men Type: BLOOD SPECIMEN Ordering Facility: [facility] Address: [facility] [place] [address] Performed By: #### 2 4323-8, 0-3, 76877-4, 2776-09, 8 #### [facility] CLIA [id number] [address] [place], [place] [address] [place] Hemoglobin (Bld) [Mass/Vol] 10.0 g/dL Low 11.5-15.5 [facility] Comment on above: Order Comment: Speci men Type: BLOOD SPECIMEN Ordering Facility: [facility] Address: [facility] [place] [address] Performed By: #### 2 4323-8, 3040-3, 59520-8, 1, 8 #### [facility] CLIA [id number] [address] [place], [place] [address] [place] MCH (RBC) [Entitic mass] 26.0 pg Normal 26.0-34.0 [facility] Comment on above: Order Comment: Speci men Type: BLOOD SPECIMEN Ordering Facility: [facility] Address: [address] [place] [address] Performed By: #### 2 4323-8, 3040-3, 72875-6, 7-1, 257-8 #### [facility] CLIA [id number] [address] [place], [place] [address] [place] MCHC (RBC) [Mass/Vol] 29.7 g/dL Low 30.5-36.0 [facility] Comment on above: Order Comment: Speci men Type: BLOOD SPECIMEN Ordering Facility: [facility] Address: [address] [place] [address] Performed By: #### 2 4323-8, 3040-3, 96629-3, 2776-1, 257-8 #### [facility] CLIA [id number] [address] [place] [address] [place] MCV (RBC) [Entitic vol] 87.8 fL Normal 80.0-100.0 [facility] Comment on above: Order Comment: Speci men Type: BLOOD SPECIMEN Ordering Facility: [facility] Address: [address] [place] [address] Performed By: #### 2 4323-8, 3040-3, 39917-6, 2776-1, 2571-8 #### [facility] CLIA [id number] [address] [place] [address] [place] Nucleated RBC (Bld) [#/Vol] 10*3/uL Normal <0.01 [facility] Comment on above: Order Comment: Speci men Type: BLOOD SPECIMEN Ordering Facility: [facility] Address: [address] [place] [address] Performed By: #### 2 4323-8, 3040-3, 93992-4, 7-1, 2571-8 #### [facility] CLIA [id number] [address] [place], [place] [address] [place] Platelet mean volume (Bld) [Entitic vol] 9.7 fL Normal 9.0-12.7 [facility] Comment on above: Order Comment: Speci men Type: BLOOD SPECIMEN Ordering Facility: [facility] Address: [address] [place] [address] Performed By: #### 2 4323-8, 3040-3, 89118-3, 2777-1, 2571-8 #### [facility] CLIA [id number] [address] [place], [place] [address] [place] Platelets (Bld) [#/Vol] 380 10*3/uL Normal 150-400 [facility] Comment on above: Order Comment: Speci men Type: BLOOD SPECIMEN Ordering Facility: [facility] Address: [address] [place] [address] Performed By: #### 2 4323-8, 3040-3, 39543-1, 2777-1, 257-8 #### [facility] CLIA [id number] [address] [place] [address] [place] RBC (Bld) [#/Vol] 3.84 10*6/uL Low 3.90-5.20 [facility] Comment on above: Order Comment: Speci men Type: BLOOD SPECIMEN Ordering Facility: [facility] Address: [address] [place] [address] Performed By: #### 2 4323-8, 3040-3, 87027-7, 2777-1, 2571-8 #### [facility] CLIA [id number] [address] [place], [place] [address] [place] WBC (Bld) [#/Vol] 16.40 10*3/uL High 3.70-11.00 [facility] Comment on above: Order Comment: Speci men Type: BLOOD SPECIMEN Ordering Facility: [facility] Address: [address] [place] [address] Performed By: #### 2 4323-8, 3040-3, 55759-3, 2777-1, 2571-8 #### [facility] CLIA [id number] [address] [place] [id number] [place] CONSULT PROGon 03-21-2025 CONSULT PROG HNO ID: [id number] Author: EUGENE VIRAMONTES APRN.IGOR Service: Pulmonary Disease Author Type: Nurse Practitioner Type: Consult Progress Note Filed: 03/21/2025 14:20 Note Text: [facility] PULMONARY PROGRESS NOTE SERVICE DATE: 03/21/2025 SERVICE TIME: 2:00 PM INTERVAL HPI: Patient states she is starting to cough up more phlegm today. She hates coughing because it makes her diarrhea worse. Resting SpO2 90-93% on 8L via cool flow HFNC during my evaluation. PAST MEDICAL HISTORY Diagnosis Date Acute exacerbation [...] Stage 3 severe COPD by GOLD classification ([facility]) 2018 Tobacco use greater than 30 years Unspecified hemorrhoids without mention of complication Urine, incontinence, stress female 11/24/2014 gabapentin (NEURONTIN) 300 mg capsule, Take 1 capsule by mouth three times a day for 30 days., Disp: 90 capsule, Rfl: 0 simvastatin (ZOCOR) 20 mg tablet, Take 1 tablet by mouth daily at bedtime., Disp: 30 tablet, Rfl: 11 colchicine 0.6 mg tablet, Take 2 pills x1 now then take 1 tablet BID until gone, Disp: 5 tablet, Rfl: 0 albuterol (PROVENTIL) 2.5 mg /3 mL (0.083 %) nebulizer solution, Use 3 mL via nebulizer one time only for 1 dose. Use over 5-15minutes., Disp: 3 mL, Rfl: 0 ondansetron orally disintegrating (ZOFRAN ODT) 4 mg disintegrating tablet, Take 1 tablet by mouth every 6 hours as needed for nausea/vomiting., Disp: 30 tablet, Rfl: [address] (PROTONIX) 40 mg tablet, Take 1 tablet by mouth once daily., Disp: 90 tablet, Rfl: 2 metoprolol tartrate, short acting, (LOPRESSOR) 25 mg tablet, Take 1 tablet by mouth two times a day., Disp: 180 tablet, Rfl: 3 amLODIPine (NORVASC) 5 mg tablet, Take 1 tablet by mouth once daily., Disp: 30 tablet, Rfl: 5 hydrOXYzine HCl (ATARAX) 25 mg tablet, Take 1 tablet by mouth three times a day as needed for itching/rash., Disp: 90 tablet, Rfl: 3 MUCINEX D MAXIMUM STRENGTH 120-1,200 mg tab ER 12 hr, Take 1 tablet by mouth as needed., Disp: 30 tablet, Rfl: 0 Cholecalciferol, Vitamin D3, 50 mcg (2,000 unit) cap, Take 1 capsule by mouth once daily., Disp: 90 capsule, Rfl: 2 predniSONE (DELTASONE) 20 mg tablet, Take 2 tablets by mouth once daily. (Patient not taking: Reported on 11/02/2024), Disp: 5 tablet, Rfl: 0 ziprasidone (GEODON) 40 mg capsule, Take 1 capsule by mouth at bedtime as needed., Disp: 30 capsule, Rfl: hydrOXYzine pamoate (VISTARIL) 25 mg capsule, Take 1 capsule by mouth daily at bedtime., Disp: 30 capsule, Rfl: 11 lisinopril (ZESTRIL) 10 mg tablet, Take 1 tablet by mouth once daily., Disp: 30 tablet, Rfl: 11 Benzonatate 200 mg capsule, Take 200 mg by mouth three times a day as needed. (Patient not taking: Reported on 11/07/2024), Disp: , Rfl: Blood Pressure Monitor, Home blood pressure monitor, Disp: 1 Each, Rfl: 0 cyclobenzaprine (FLEXERIL) 10 mg tablet, Take 1 tablet by mouth twice daily as needed for muscle spasm., Disp: 15 tablet, Rfl: 1 albuterol HFA (VENTOLIN HFA) 90 mcg/actuation inhaler, Inhale 2 Puffs as instructed four times daily as needed., Disp: 54 g, Rfl: 4 ferrous sulfate (SLOW FE) 140 mg (45 mg iron) TbER, Take 1 tablet by mouth twice daily with meals., Disp: 60 tablet, Rfl: 3 mirtazapine (REMERON) 45 mg tablet, Prescribed by Dr. Talamantes., Disp: , Rfl: multivitamin tablet, Take 1 tablet by mouth once daily., Disp: 30 tablet, Rfl: 11 ARIPiprazole (ABILIFY) 5 mg tablet, 5 mg once daily., Disp: , Rfl: OXYGEN, HOME THERAPY,, Inhale as instructed as directed. Patient is on 2-3 liters, Disp: , Rfl: COMPOUNDED PRESCRIPTION, Pulse Oximetry, Disp: 1 Device, Rfl: 0 COMPOUNDED PRESCRIPTION, nebulizer supplies (tubing), Disp: 1 Each, Rfl: 5 Current Facility-Administered Medications Medication Dose Route Frequency iv contrast (radiology procedure) INTRAVENOUS DIRECTED PRN heparin 5,000 Units injection 5,0 (more content not included)... Normal [facility] Magnesium [Mass/Vol] 2.3 mg/dL Normal 1.6-2.6 [facility] Comment on above: Order Comment: Reggie fajardo Type: BLOOD SPECIMEN Ordering Facility: [facility] Address: [address] [place] [address] Performed By: #### 2 4323-8, 3040-3, 06693-1, 2777-1, 2571-8 #### [facility] CLIA [id number] [facility] [place] [address] [place] NT-proBNP [facility] 03-21 Natriuretic peptide.B prohormone N-Terminal [Mass/Vol] 1416 pg/mL High <125 [facility] Comment on above: Order Comment: Reggie fajardo Type: BLOOD SPECIMEN Ordering Facility: [facility] Address: [address] [place] [address] Result Comment: NT-p roBNP results of less than 300 pg/mL likely rules out acute congestive heart failure with 99% predictive value. NOTE: These cutoff points are suggested for ACUTE CHF DIAGNOSIS only Less than 50 years\X09\ Greater than 450 pg/mL 50 - 75 years\X09\\X09\ Greater than 900 pg/mL Greater than 75 years\X09\ Greater than 1800 pg/mL Performed By: #### 2 4323-8, 3040-3, 24541-7, 2777-1, 2571-8 #### [facility] CLIA [id number] [address] [place] [address] [facility] ALLIED HEALTHon 03-20-2025 ALLIED HEALTH HNO ID: [id number] Author: ?, ?, ? Service: Infection Prevention Author Type: ? Type: Allied Health Filed: 03/20/2025 14:07 Note Text: Summary: isolation precautions ISOLATION NOTE Admission Date: 03/15/2025 Type of Isolation Recommended: Contact Precautions - Soap and Water (Brown Isolation Sign) Indication: Norovirus Date Isolation Initiated: 03/18/25 Anticipated Duration of Isolation: In consultation with Infection Prevention Type and Date of Positive Test(s): 03/18/25 SIGNATURE: Susan Helm PATIENT NAME: Gracie Banuelos DATE: March 20, 2025 TIME: 2:06 PM PAGER/CONTACT #: [phone] Infection Prevention after hours/weekend pager: [phone] [facility] Basic metabolic 2000 panelon 03-20-2025 Anion gap [Moles/Vol] 11 mmol/L Normal 5-16 [facility] Comment on above: Order Comment: Speci men Type: BLOOD SPECIMEN Ordering Facility: [facility] Address: [address] [place] [address] Performed By: #### S LACTR #### [facility] CLIA [id number] [address] [place] [address] [place] Calcium [Mass/Vol] 9.9 mg/dL Normal 8.5-10.5 [facility] Comment on above: Order Comment: Speci men Type: BLOOD SPECIMEN Ordering Facility: [facility] Address: [address] [place] [address] Performed By: #### S LACTR #### [facility] CLIA [id number] [address] [place] [address] [place] Chloride [Moles/Vol] 95 mmol/L Low 98-107 [facility] Comment on above: Order Comment: Speci men Type: BLOOD SPECIMEN Ordering Facility: [facility] Address: [address] [place] [address] Performed By: #### S LACTR #### [facility] CLIA [id number] [address] [place] [address] [place] CO2 [Moles/Vol] 29 mmol/L Normal 21-32 [facility] Comment on above: Order Comment: Speci men Type: BLOOD SPECIMEN Ordering Facility: [facility] Address: [address] [place] [address] Performed By: #### S LACTR #### [facility] CLIA [id number] [address] [place] [address] [place] Creatinine [Mass/Vol] 0.83 mg/dL Normal 0.51-0.95 [facility] Comment on above: Order Comment: Speci men Type: BLOOD SPECIMEN Ordering Facility: [facility] Address: [address] [place] [address] Result Comment: Gretta ents receiving either N-Acetylcysteine (NAC) or Metamizole prior to venipuncture, may have falsely depressed results. Performed By: #### S LACTR #### [facility] CLIA [id number] [address] [place] [address] [place] Creatinine and Glomerular filtration rate.predicted panel (S/P/Bld) 80 mL/min/1.73m??? Normal >=60 [facility] Comment on above: Order Comment: Reggie fajardo Type: BLOOD SPECIMEN Ordering Facility: [facility] Address: [address] [place] [address] Result Comment: Pavan mated Glomerular Filtration Rate [...] accurately reflect actual GFR. Performed By: #### S LACTR #### [facility] CLIA [id number] [address] [place] [address] [place] Glucose [Mass/Vol] 135 mg/dL High 70-100 [facility] Comment on above: Order Comment: Reggie fajardo Type: BLOOD SPECIMEN Ordering Facility: [facility] Address: [address] [place] [address] Result Comment: The [place] [employer] (ADA) provides guidance for cutoff [...] Standards of Medical Care in Diabetes 2016, [place] [employer]. Diabetes Care. 2016.39(Suppl 1). Results may be falsely elevated after the administration of Sulfapyridine. Results may be falsely depressed after the administration of Sulfasalazine. Performed By: #### S LACTR #### [facility] CLIA [id number] [address] [place] [address] [place] Potassium [Moles/Vol] 4.2 mmol/L Normal 3.5-5.1 [facility] Comment on above: Order Comment: Speci men Type: BLOOD SPECIMEN Ordering Facility: [facility] Address: [address] [place] [address] Performed By: #### S LACTR #### [facility] CLIA [id number] [address] [place] [address] [place] Sodium [Moles/Vol] 135 mmol/L Low 136-145 [facility] Comment on above: Order Comment: Speci men Type: BLOOD SPECIMEN Ordering Facility: [facility] Address: [address] [place] [address] Performed By: #### S LACTR #### [facility] CLIA [id number] [address] [place] [address] [place] Urea nitrogen [Mass/Vol] 15 mg/dL Normal 7-26 [facility] Comment on above: Order Comment: Speci men Type: BLOOD SPECIMEN Ordering Facility: [facility] Address: [address] [place] [address] Performed By: #### S LACTR #### [facility] CLIA [id number] [address] [place] [address] [place] CBC panel Auto (Bld)on 03-20 Erythrocyte distribution width (RBC) [Ratio] 15.4 % High 11.5-15.0 [facility] Comment on above: Order Comment: Speci men Type: BLOOD SPECIMEN Ordering Facility: [facility] Address: [address] [place] [address] Performed By: #### S LACTR #### [facility] CLIA [id number] [address] [place] [address] [place] Hematocrit (Bld) [Volume fraction] 37.7 % Normal 36.0-46.0 [facility] Comment on above: Order Comment: Speci men Type: BLOOD SPECIMEN Ordering Facility: [facility] Address: [address] [place] [address] Performed By: #### S LACTR #### [facility] CLIA [id number] [address] [place] [address] [place] Hemoglobin (Bld) [Mass/Vol] 11.7 g/dL Normal 11.5-15.5 [facility] Comment on above: Order Comment: Speci men Type: BLOOD SPECIMEN Ordering Facility: [facility] Address: [address] [place] [address] Performed By: #### S LACTR #### [facility] CLIA [id number] [address] [place] [address] [place] MCH (RBC) [Entitic mass] 26.7 pg Normal 26.0-34.0 [facility] Comment on above: Order Comment: Speci men Type: BLOOD SPECIMEN Ordering Facility: [facility] Address: [address] [place] [address] Performed By: #### S LACTR #### [facility] CLIA [id number] [address] [place] [address] [place] MCHC (RBC) [Mass/Vol] 31.0 g/dL Normal 30.5-36.0 [facility] Comment on above: Order Comment: Speci men Type: BLOOD SPECIMEN Ordering Facility: [facility] Address: [address] [place] [address] Performed By: #### S LACTR #### [facility] CLIA [id number] [address] [place] [address] [place] MCV (RBC) [Entitic vol] 86.1 fL Normal 80.0-100.0 M [facility] Comment on above: Order Comment: Speci men Type: BLOOD SPECIMEN Ordering Facility: [facility] Address: [address] [place] [address] Performed By: #### S LACTR #### [facility] CLIA [id number] [address] [place] [address] [place] Nucleated RBC (Bld) [#/Vol] 10*3/uL Normal <0.01 [facility] Comment on above: Order Comment: Speci men Type: BLOOD SPECIMEN Ordering Facility: [facility] Address: [address] [place] [address] Performed By: #### S LACTR #### [facility] CLIA [id number] [address] [place] [address] [place] Platelet mean volume (Bld) [Entitic vol] 10.0 fL Normal 9.0-12.7 [facility] Comment on above: Order Comment: Speci men Type: BLOOD SPECIMEN Ordering Facility: [facility] Address: [address] [place] [address] Performed By: #### S LACTR #### [facility] CLIA [id number] [address] [place] [address] [place] Platelets (Bld) [#/Vol] 447 10*3/uL High 150-400 [facility] Comment on above: Order Comment: Speci men Type: BLOOD SPECIMEN Ordering Facility: [facility] Address: [address] [place], [place] [address] Performed By: #### S LACTR #### [facility] CLIA [id number] [address] [place] [address] [place] RBC (Bld) [#/Vol] 4.38 10*6/uL Normal 3.90-5.20 [facility] Comment on above: Order Comment: Speci men Type: BLOOD SPECIMEN Ordering Facility: [facility] Address: [address] [place] [address] Performed By: #### S LACTR #### [facility] CLIA [id number] [address] [place], [place] [address] [place] WBC (Bld) [#/Vol] 18.58 10*3/uL High 3.70-11.00 [facility] Comment on above: Order Comment: Speci men Type: BLOOD SPECIMEN Ordering Facility: [facility] Address: [address] [place] [address] Performed By: #### S LACTR #### [facility] CLIA [id number] [address] [place] [id number] [place] CONSULT PROGon 03-20-2025 CONSULT PROG HNO ID: [id number] Author: ISIS BE RPh Service: Pharmacy Author Type: Pharmacist Type: Consult Progress Note Filed: 03/20/2025 13:51 Note Text: PHARMACY VANCOMYCIN DOSING NOTE Patient Name: Gracie Banuelos Admission Date: 03/15/2025 Date of Consult: 03/20/2025 Time of Consult: 1:51 PM RECOMMENDATIONS/PLAN: Pharmacy consulted for vancomycin dosing for Gracie Banuelos, a 59 year old female. Vancomycin therapy has been discontinued. Vancomycin level(s) have been discontinued: Yes. The pharmacy vancomycin dosing service will sign off. Thank you for allowing us to participate in this patient's care. Please contact pharmacy if there are questions. Isis Be RPh [facility] CONSULT PROG HNO ID: [id number] Author: EUGENE VIRAMONTES APRN.CNP Service: Pulmonary Disease Author Type: Nurse Practitioner Type: Consult Progress Note Filed: 03/20/2025 11:28 Note Text: [facility] PULMONARY PROGRESS NOTE SERVICE DATE: 03/20/2025 SERVICE TIME: 10:30 AM INTERVAL HPI: Patient states she is doing OK today. She complains of weakness. She states she walked from the cart to the CT scan last night without desaturating. She states she desaturates when she talks. During my evaluation, her SpO2 fluctuated from 88-91% on 10L via Cool Flow HFNC. PAST MEDICAL HISTORY Diagnosis Date Acute exacerbation [...] Stage 3 severe COPD by GOLD classification ([facility]) 2018 Tobacco use greater than 30 years Unspecified hemorrhoids without mention of complication Urine, incontinence, stress female 11/24/2014 gabapentin (NEURONTIN) 300 mg capsule, Take 1 capsule by mouth three times a day for 30 days., Disp: 90 capsule, Rfl: 0 simvastatin (ZOCOR) 20 mg tablet, Take 1 tablet by mouth daily at bedtime., Disp: 30 tablet, Rfl: 11 colchicine 0.6 mg tablet, Take 2 pills x1 now then take 1 tablet BID until gone, Disp: 5 tablet, Rfl: 0 albuterol (PROVENTIL) 2.5 mg /3 mL (0.083 %) nebulizer solution, Use 3 mL via nebulizer one time only for 1 dose. Use over 5-15minutes., Disp: 3 mL, Rfl: 0 ondansetron orally disintegrating (ZOFRAN ODT) 4 mg disintegrating tablet, Take 1 tablet by mouth every 6 hours as needed for nausea/vomiting., Disp: 30 tablet, Rfl: [address] (PROTONIX) 40 mg tablet, Take 1 tablet by mouth once daily., Disp: 90 tablet, Rfl: 2 metoprolol tartrate, short acting, (LOPRESSOR) 25 mg tablet, Take 1 tablet by mouth two times a day., Disp: 180 tablet, Rfl: 3 amLODIPine (NORVASC) 5 mg tablet, Take 1 tablet by mouth once daily., Disp: 30 tablet, Rfl: 5 hydrOXYzine HCl (ATARAX) 25 mg tablet, Take 1 tablet by mouth three times a day as needed for itching/rash., Disp: 90 tablet, Rfl: 3 MUCINEX D MAXIMUM STRENGTH 120-1,200 mg tab ER 12 hr, Take 1 tablet by mouth as needed., Disp: 30 tablet, Rfl: 0 Cholecalciferol, Vitamin D3, 50 mcg (2,000 unit) cap, Take 1 capsule by mouth once daily., Disp: 90 capsule, Rfl: 2 predniSONE (DELTASONE) 20 mg tablet, Take 2 tablets by mouth once daily. (Patient not taking: Reported on 11/02/2024), Disp: 5 tablet, Rfl: 0 ziprasidone (GEODON) 40 mg capsule, Take 1 capsule by mouth at bedtime as needed., Disp: 30 capsule, Rfl: hydrOXYzine pamoate (VISTARIL) 25 mg capsule, Take 1 capsule by mouth daily at bedtime., Disp: 30 capsule, Rfl: 11 lisinopril (ZESTRIL) 10 mg tablet, Take 1 tablet by mouth once daily., Disp: 30 tablet, Rfl: 11 Benzonatate 200 mg capsule, Take 200 mg by mouth three times a day as needed. (Patient not taking: Reported on 11/07/2024), Disp: , Rfl: Blood Pressure Monitor, Home blood pressure monitor, Disp: 1 Each, Rfl: 0 cyclobenzaprine (FLEXERIL) 10 mg tablet, Take 1 tablet by mouth twice daily as needed for muscle spasm., Disp: 15 tablet, Rfl: 1 albuterol HFA (VENTOLIN HFA) 90 mcg/actuation inhaler, Inhale 2 Puffs as instructed four times daily as needed., Disp: 54 g, Rfl: 4 ferrous sulfate (SLOW FE) 140 mg (45 mg iron) TbER, Take 1 tablet by mouth twice daily with meals., Disp: 60 tablet, Rfl: 3 mirtazapine (REMERON) 45 mg tablet, Prescribed by Dr. Talamantes., Disp: , Rfl: multivitamin tablet, Take 1 tablet by mouth once daily., Disp: 30 tablet, Rfl: 11 ARIPiprazole (ABILIFY) 5 mg tablet, 5 mg once daily., Disp: , Rfl: OXYGEN, HOME THERAPY,, Inhale as instructed as directed. Patient is on 2-3 liters, Disp: , Rfl: COMPOUNDED PRESCRIPTION, Pulse Oximetry, Disp: 1 Device, Rfl: 0 COMPOUNDED PRESCRIPTION, nebulizer supplies (tubing), Disp: 1 Each, Rfl: 5 Current Facility-Administered Medications Medication Dose Route Frequency iv con (more content not included)... [facility] ECHOon 03-20-2025 Echocardiography Echocardiography Report: Transthoracic Echo [facility] Date of service: 03/20/2025 9:25:59 AM Ordering physician: NGUYEN BUCHANANON Exam indication: Routine surveillance (>1yr) of Heart Failure with no change in clinical status Technologist: Dale Beth Interpreting physician: Claudia Young MD PATIENT: Name: MRS. GRACIE BANUELOS : 1965 Age: 59 years Gender: F History of hypertension, dyslipidemia, COPD and heart failure with hospitalization. Primary rhythm: sinus. Height: 165.10 cm BSA: 1.62 m Weight: 57.00 kg BMI: 20.9 kg/m Heart rate 111 bpm Blood pressure 104/72 mmHg Color Doppler was utilized to interrogate the cardiac valves assessed and spectral Doppler was utilized to determine the flow velocities and pressure gradients reported in this exam. MEASUREMENTS: Value Indexed Normal Max aortic dimension 3.4 cm Ao < 3.8 Left atrial volume 33 ml (Marvin's) 20 ml/m Shilpa <= 34 LV ID (diastole) 3.5 cm (2D) 2.16 cm/m LV ID (systole) 1.5 cm (2D) 0.93 cm/m IVS, leaflet tips 1.2 cm (2D) Posterior wall thickness 1.4 cm (2D) Left ventricular mass 154 g (2D) 95 g/m LV stroke volume 33 ml (2D biplane) LVOT stroke volume 48 ml 30 ml/m LV end diastolic volume 44 ml (2D biplane) 27.2 ml/m 29<=EDVi<62 LV end systolic volume 11 ml (2D biplane) 7.0 ml/m Ejection Fraction 74 % (2D biplane) EF > 54 FINDINGS: LEFT VENTRICLE The left ventricle is small. There is mild concentric left ventricular hypertrophy. Left ventricular systolic function is hyperdynamic. Normal left ventricular diastolic function. Mitral annular lateral E/e': 6.4. Mitral annular septal E/e': 7.8. Wall Motion: All scored segments are normal. RIGHT VENTRICLE The right ventricle is normal in size. Right ventricular systolic function is normal. RV systolic tissue Doppler velocity is 11.5 cm/s. Tricuspid annular displacement is 2.0 cm. Estimated right ventricular systolic pressure is likely underestimated due to a weak or incomplete tricuspid regurgitation signal and is, at least, 9 mmHg consistent with normal pulmonary artery pressures. Estimated right atrial pressure is 3 mmHg based on IVC assessment. LEFT ATRIUM The left atrial cavity is normal in size. RIGHT ATRIUM The right atrial cavity is normal in size. Inferior Vena Cava: The inferior vena cava appears normal measuring 1.4 cm. The vessel decreases greater than 50 percent with inspiration. MITRAL VALVE There is moderate mitral annular calcification observed posterior. There is trace (trace - 1+) mitral valve regurgitation. There is no thickening. The peak valve gradient is 12 mmHg. The mean valve gradient is 5 mmHg. The pressure half time is 46 msec. The peak mitral E/A ratio is 0.46. The average mitral E/e' ratio is 7.1. The mitral flow deceleration time is 158 msec. TRICUSPID VALVE There is no tricuspid valve stenosis. There is trace tricuspid valve regurgitation. AORTIC VALVE There is no aortic valve regurgitation. Tricuspid aortic valve. There is mild thickening. There is mild calcification. The peak gradient is 8 mmHg (peak velocity = 144.3 cm/s). The mean gradient is 5 mmHg. The LVOT mean velocity is 83.4 cm/s. The LVOT diameter is 1.8 cm. The aortic VTI is 22.5 cm. The mean velocity in the aortic valve is 111.3 cm/s. The dimensionless valve index is 0.84. AV area is 2.14 cm (1.32 cm /m ) by continuity, VTI. The LVOT stroke volume index is 30 ml/m . PULMONIC VALVE There is no pulmonic valve stenosis. There is trace pulmonic valve regurgitation. The peak gradient is 6 mmHg. AORTA The visualized aorta is normal in size. Measurements - Aortic valve annulus 1.6 cm. Sinus: 2.7 cm. Sinotubular junction 2.5 cm. Mid ascending aorta 3.4 cm. PULMONARY ARTERIES The pulmonary arteries are unseen or not interrogated. INTERATRIAL SEPTUM There is no evidence of intracardiac shunting as detected by Doppler. INTERVENTRICULAR SEPTUM There is no flow through the interventricular septum as detected by Doppler. PERICARDIUM The pericardium is normal. CONCLUSIONS: - Exam indication: Routine surveillance (>1yr) of Heart Failure with no change in clinical status - The left ventricle is small. There is mild concentric left ventricular hypertrophy. Left ventricular systolic function is hyperdynamic. EF = 74 5% (2D biplane) Normal left ventricular diastolic function. - The right ventricle is normal in size. Right ventricular systolic function is normal. * * * Final * * * CC [employer] Image : [id number] [id number] Normal [facility] Magnesium SerPl-mCncon 03-20 Magnesium [Mass/Vol] 2.1 mg/dL Normal 1.6-2.6 [facility] Comment on above: Order Comment: Speci men Type: BLOOD SPECIMEN Ordering Facility: [facility] Address: [address] [place] [address] Performed By: #### S LACTR #### [facility] CLIA [id number] [address] [place] [address] [facility] ALLIED HEALTHon 03-19-2025 ALLIED HEALTH HNO ID: [id number] Author: JENNIFER FUENTES RT(R) Service: Radiology Author Type: Technologist Type: Allied Health Filed: 03/19/2025 22:32 Note Text: Summary: ct Radiology Service Progress Note DATE OF SERVICE: March 19, 2025 TIME: 10:13 PM PATIENT IDENTITY VERIFICATION COMPLETED USING TWO (2) STANDARD IDENTIFIERS: Name and Date of confirmed by patient verbally. FALL SCREENING: Has the patient had 2 falls in the last year or 1 fall with injury or currently using an Ambulatory Assistive Device (Walker, Cane, Wheelchair, Crutches, etc.)? Inpatient: Screened on floor PATIENT GENDER DATA: Assigned female at . status: : No status: NO. PATIENT RELEVANT IMPLANT DATA REVIEWED: Not Applicable PATIENT PRESENTS WITH AN IMPLANTABLE OR ATTACHED PARK MANAGER: No ALLERGIES: Reviewed and unchanged CONTRAST ALLERGY: NO. EXAM: CT -CONTRAST INDUCED NEPHROPATHY RISK FACTORS: Patient age > 60 years CREATININE: Creatinine Date Value Ref Range Status 03/19/2025 0.57 0.51 - 0.95 mg/dL Final Comment: Patients receiving either N-Acetylcysteine (NAC) or Metamizole prior to venipuncture, may have falsely depressed results. 03/18/2025 0.52 0.51 - 0.95 mg/dL Final Comment: Patients receiving either N-Acetylcysteine (NAC) or Metamizole prior to venipuncture, may have falsely depressed results. 03/17/2025 0.65 0.51 - 0.95 mg/dL Final Comment: Patients receiving either N-Acetylcysteine (NAC) or Metamizole prior to venipuncture, may have falsely depressed results. Estimated Glomerular Filtration Rate Date Value Ref Range Status 03/19/2025 104 >=60 mL/min/1.73m? Final Comment: Estimated Glomerular Filtration [...] RESULTS: POC done: Yes, See Lab Tab March 19, 2025 TREATMENT: N/A PERIPHERAL IV DATA: Inpatient - refer to LDA documentation RADIOLOGY DEPARTMENT: CT; Exam(s) Completed: CTA Chest SIGNATURE: RT Alexandra(R) PATIENT NAME: Gracie Banuelos DATE: March 19, 2025 TIME: 10:13 PM Normal [facility] ARTERIAL BLOOD GASESon 03-19 Base excess Calc (Bld) [Moles/Vol] 3 mmol/L High 0-2 [facility] Comment on above: Order Comment: Speci men Type: BLOOD SPECIMEN Ordering Facility: [facility] Address: [address] [place] [address] Performed By: #### S LACTR #### [facility] CLIA [id number] [address] [place], [place] [address] [place] Body temperature 98.6 [degF] Normal [facility] Comment on above: Order Comment: Speci men Type: BLOOD SPECIMEN Ordering Facility: [facility] Address: [address] [place] [address] Performed By: #### S LACTR #### [facility] CLIA [id number] [address] [place] [address] [place] Calcium.ionized (Bld) [Mass/Vol] 1.25 mmol/L Normal 1.08-1.30 [facility] Comment on above: Order Comment: Speci men Type: BLOOD SPECIMEN Ordering Facility: [facility] Address: [address] [place] [address] Performed By: #### S LACTR #### [facility] CLIA [id number] [address] [place] [address] [place] Carboxyhemoglobin (BldA) [Mass fraction] 0.0 % Normal 0.0-2.0 [facility] Comment on above: Order Comment: Speci men Type: BLOOD SPECIMEN Ordering Facility: [facility] Address: [address] [place] [address] Result Comment: Carb oxyhemoglobin Reference Range for Smokers: 2.0-8.0% Performed By: #### S LACTR #### [facility] CLIA [id number] [address] [place] [address] [place] CO2 (Bld) [Partial pressure] 38 mm Hg Normal 36-46 [facility] Comment on above: Order Comment: Speci men Type: BLOOD SPECIMEN Ordering Facility: [facility] Address: [address] [place] [address] Performed By: #### S LACTR #### [facility] CLIA [id number] [address] [place] [address] [place] Glucose [Mass/Vol] 155 mg/dL High 60-105 [facility] Comment on above: Order Comment: Speci men Type: BLOOD SPECIMEN Ordering Facility: [facility] Address: [address] [place] [address] Performed By: #### S LACTR #### [facility] CLIA [id number] [address] [place] [address] [place] HCO3 (Bld) [Moles/Vol] 27 mmol/L High 22-26 [facility] Comment on above: Order Comment: Speci men Type: BLOOD SPECIMEN Ordering Facility: [facility] Address: [address] [place] [address] Performed By: #### S LACTR #### [facility] CLIA [id number] [address] [place] [address] [place] Hemoglobin (Bld) [Mass/Vol] 12.5 g/dL Normal 11.5-15.5 [facility] Comment on above: Order Comment: Speci men Type: BLOOD SPECIMEN Ordering Facility: [facility] Address: [address] [place] [address] Performed By: #### S LACTR #### [facility] IA [id number] [address] [place] [address] [place] Lactate [Moles/Vol] 0.8 mmol/L Normal 0.5-2.2 [facility] Comment on above: Order Comment: Speci men Type: BLOOD SPECIMEN Ordering Facility: [facility] Address: [address] [place] [address] Performed By: #### S LACTR #### [facility] CLIA [id number] [address] [place] [address] [place] LITERS 12 Liters/min Normal [facility] Comment on above: Order Comment: Speci men Type: BLOOD SPECIMEN Ordering Facility: [facility] Address: [address] [place] [address] Performed By: #### S LACTR #### [facility] CLIA [id number] [address] [place] [address] [place] Methemoglobin (Bld) [Mass fraction] 0.2 % Normal 0.0-1.5 [facility] Comment on above: Order Comment: Speci men Type: BLOOD SPECIMEN Ordering Facility: [facility] Address: [address] [place] [address] Performed By: #### S LACTR #### [facility] CLIA [id number] [address] [place] [address] [place] [facility] [place] O2 THERAPY [place] Humid = Nasal Cannula-Humidified (7-15 LPM) Normal [facility] Comment on above: Order Comment: Speci men Type: BLOOD SPECIMEN Ordering Facility: [facility] Address: [address] [place] [address] Performed By: #### S LACTR #### [facility] [place] [id number] [address] [place] [address] [place] Oxygen (Bld) [Partial pressure] 68 mm Hg Low 85-95 [facility] Comment on above: Order Comment: Speci men Type: BLOOD SPECIMEN Ordering Facility: [facility] Address: [address] [place] [address] Performed By: #### S LACTR #### [facility] IA [id number] [address] [place] [address] [place] Oxyhemoglobin (BldA) [Mass fraction] 93 % Low 95-98 [facility] Comment on above: Order Comment: Speci men Type: BLOOD SPECIMEN Ordering Facility: [facility] Address: [address] [place] [address] Performed By: #### S LACTR #### [facility] CLIA [id number] [address] [place] [address] [place] pH (Bld) 7.47 [pH] High 7.35-7.45 [facility] Comment on above: Order Comment: Speci men Type: BLOOD SPECIMEN Ordering Facility: [facility] Address: [address] [place] [address] Performed By: #### S LACTR #### [facility] CLIA [id number] [address] [place] [address] [place] Potassium [Moles/Vol] 4.4 mmol/L Normal 2.5-6.0 [facility] Comment on above: Order Comment: Speci men Type: BLOOD SPECIMEN Ordering Facility: [facility] Address: [address] [place] [address] Performed By: #### S LACTR #### [facility] CLIA [id number] [address] [place] [address] [place] Sodium [Moles/Vol] 135 mmol/L Low 136-144 [facility] Comment on above: Order Comment: Speci men Type: BLOOD SPECIMEN Ordering Facility: [facility] Address: [address] [place] [address] Performed By: #### S LACTR #### [facility] CLIA [id number] [address] [place] [address] [place] Basic metabolic 2000 panelon 03-19-2025 Anion gap [Moles/Vol] 10 mmol/L Normal 5-16 [facility] Comment on above: Order Comment: Speci men Type: BLOOD SPECIMEN Ordering Facility: [facility] Address: [address] [place] [address] Performed By: #### 3 4528-0, 24140-5 #### [facility] CLIA [id number] [address] [place] [address] [place] Calcium [Mass/Vol] 9.4 mg/dL Normal 8.5-10.5 [facility] Comment on above: Order Comment: Speci men Type: BLOOD SPECIMEN Ordering Facility: [facility] Address: [address] [place] [address] Performed By: #### 3 4528-0, 78360-8 #### [facility] CLIA [id number] [address] [place] [address] [place] Chloride [Moles/Vol] 100 mmol/L Normal 98-107 [facility] Comment on above: Order Comment: Speci men Type: BLOOD SPECIMEN Ordering Facility: [facility] Address: [address] [place] [address] Performed By: #### 3 4528-0, 83581-9 #### [facility] CLIA [id number] [address] [place] [address] [place] CO2 [Moles/Vol] 28 mmol/L Normal 21-32 [facility] Comment on above: Order Comment: Speci men Type: BLOOD SPECIMEN Ordering Facility: [facility] Address: [address] [place] [address] Performed By: #### 3 4528-0, 06054-7 #### [facility] CLIA [id number] [address] [place] [address] [place] Creatinine [Mass/Vol] 0.57 mg/dL Normal 0.51-0.95 [facility] Comment on above: Order Comment: Speci men Type: BLOOD SPECIMEN Ordering Facility: [facility] Address: [address] [place] [address] Result Comment: Gretta ents receiving either N-Acetylcysteine (NAC) or Metamizole prior to venipuncture, may have falsely depressed results. Performed By: #### 3 4528-0, 76469-5 #### [facility] CLIA [id number] [address] [place] [address] Creatinine and Glomerular filtration rate.predicted panel (S/P/Bld) 104 mL/min/1.73m??? Normal >=60 [facility] Comment on above: Order Comment: Reggie fajardo Type: BLOOD SPECIMEN Ordering Facility: [facility] Address: [address] [place] [address] Result Comment: Pavan mated Glomerular Filtration Rate [...] accurately reflect actual GFR. Performed By: #### 3 4528-0, 77518-9 #### [facility] CLIA [id number] [address] [place] [address] [place] Glucose [Mass/Vol] 102 mg/dL High 70-100 [facility] Comment on above: Order Comment: Reggie fajardo Type: BLOOD SPECIMEN Ordering Facility: [facility] Address: [address] [place] [address] Result Comment: The [place] [employer] (ADA) provides guidance for cutoff [...] Standards of Medical Care in Diabetes 2016, [place] [employer]. Diabetes Care. 2016.39(Suppl 1). Results may be falsely elevated after the administration of Sulfapyridine. Results may be falsely depressed after the administration of Sulfasalazine. Performed By: #### 3 4528-0, 41052-4 #### [facility] CLIA [id number] [address] [place] [address] [place] Potassium [Moles/Vol] 4.4 mmol/L Normal 3.5-5.1 [facility] Comment on above: Order Comment: Reggie fajardo Type: BLOOD SPECIMEN Ordering Facility: [facility] Address: [address] [place] [address] Performed By: #### 3 4528-0, 48876-3 #### [facility] CLIA [id number] [address] [place] [address] [place] Sodium [Moles/Vol] 138 mmol/L Normal 136-145 [facility] Comment on above: Order Comment: Reggie fajardo Type: BLOOD SPECIMEN Ordering Facility: [facility] Address: [address] [place] [address] Performed By: #### 3 4528-0, 14667-1 #### [facility] LABORATORY CLIA [id number] [address] [place] [address] [place] Urea nitrogen [Mass/Vol] 10 mg/dL Normal 7-26 [facility] Comment on above: Order Comment: Speci men Type: BLOOD SPECIMEN Ordering Facility: [facility] Address: [address] [place] [address] Performed By: #### 3 4528-0, 51038-4 #### [facility] CLIA [id number] [address] [place] [address] [place] CBC panel Auto (Bld)on 03-19 Erythrocyte distribution width (RBC) [Ratio] 15.1 % High 11.5-15.0 [facility] Comment on above: Order Comment: Speci men Type: BLOOD SPECIMEN Ordering Facility: [facility] Address: [address] [place] [address] Performed By: #### 3 4528-0, 55460-0 #### [facility] CLIA [id number] [address] [place] [address] [place] Hematocrit (Bld) [Volume fraction] 33.0 % Low 36.0-46.0 [facility] Comment on above: Order Comment: Speci men Type: BLOOD SPECIMEN Ordering Facility: [facility] Address: [address] [place] [address] Performed By: #### 3 4528-0, 24759-1 #### [facility] CLIA [id number] [address] [place] [address] [place] Hemoglobin (Bld) [Mass/Vol] 10.1 g/dL Low 11.5-15.5 [facility] Comment on above: Order Comment: Speci men Type: BLOOD SPECIMEN Ordering Facility: [facility] Address: [address] [place] [address] Performed By: #### 3 4528-0, 74440-9 #### [facility] CLIA [id number] [address] [place] [address] [place] MCH (RBC) [Entitic mass] 26.5 pg Normal 26.0-34.0 [facility] Comment on above: Order Comment: Speci men Type: BLOOD SPECIMEN Ordering Facility: [facility] Address: [address] [place] [address] Performed By: #### 3 4528-0, 07597-3 #### [facility] CLIA [id number] [address] [place] [address] [place] MCHC (RBC) [Mass/Vol] 30.6 g/dL Normal 30.5-36.0 [facility] Comment on above: Order Comment: Speci men Type: BLOOD SPECIMEN Ordering Facility: [facility] Address: [address] [place] [address] Performed By: #### 3 4528-0, 37176-3 #### [facility] CLIA [id number] [address] [place] [address] [place] MCV (RBC) [Entitic vol] 86.6 fL Normal 80.0-100.0 [facility] Comment on above: Order Comment: Speci men Type: BLOOD SPECIMEN Ordering Facility: [facility] Address: [address] [place] [address] Performed By: #### 3 4528-0, 10515-3 #### [facility] CLIA [id number] [address] [place] [address] [place] Nucleated RBC (Bld) [#/Vol] 10*3/uL Normal <0.01 [facility] Comment on above: Order Comment: Speci men Type: BLOOD SPECIMEN Ordering Facility: [facility] Address: [address] [place] [address] Performed By: #### 3 4528-0, 37885-5 #### [facility] CLIA [id number] [address] [place] [address] [place] Platelet mean volume (Bld) [Entitic vol] 9.9 fL Normal 9.0-12.7 [facility] Comment on above: Order Comment: Speci men Type: BLOOD SPECIMEN Ordering Facility: [facility] Address: [address] [place] [address] Performed By: #### 3 4528-0, 26495-4 #### [facility] CLIA [id number] [address] [place], [place] [address] [facility] [place] Platelets (Bld) [#/Vol] 397 10*3/uL Normal 150-400 [facility] Comment on above: Order Comment: Speci men Type: BLOOD SPECIMEN Ordering Facility: [facility] Address: [address] [place] [address] Performed By: #### 3 4528-0, 76374-9 #### [facility] CLIA [id number] [address] [place], [place] [address] [facility] [place] RBC (Bld) [#/Vol] 3.81 10*6/uL Low 3.90-5.20 [facility] Comment on above: Order Comment: Speci men Type: BLOOD SPECIMEN Ordering Facility: [facility] Address: [address] [place] [address] Performed By: #### 3 4528-0, 05804-4 #### [facility] CLIA [id number] [address] [place] [address] [place] WBC (Bld) [#/Vol] 14.59 10*3/uL High 3.70-11.00 [facility] Comment on above: Order Comment: Speci men Type: BLOOD SPECIMEN Ordering Facility: [facility] Address: [address] [place] [address] Performed By: #### 3 4528-0, 75160-0 #### [facility] CLIA [id number] [address] [place], [place] [address] [facility] CONSULT PROGon 03-19-2025 CONSULT PROG HNO ID: [id number] Author: BEENA MORTON RPh Service: Pharmacy Author Type: Pharmacist Type: Consult Progress Note Filed: 03/19/2025 16:47 Note Text: PHARMACY VANCOMYCIN DOSING NOTE Patient Name: Gracie Banuelos Admission Date: 03/15/2025 Date of Consult: 03/19/2025 Time of Consult: 4:47 PM Indication: Respiratory infection Goal Range: 15-20 mcg/mL RECOMMENDATIONS/PLAN: Pharmacy consulted for vancomycin dosing for Gracie Banuelos, a 59 year old female. 1. Patient is currently ordered Vancomycin 750 mg IV q12h. Today is day 1 of therapy. 2. No vancomycin level has been drawn for this dosing regimen. 3. The present dose of vancomycin is the recommended dosage for this patient at this time. Continue therapy as prescribed. 4. The next vancomycin level will be ordered for 03/21 unless clinically indicated sooner. (Pharmacy will order) 5. S. aureus nasal PCR swab ordered We will follow patient renal function, vancomycin levels and doses with you during the course of therapy. Additional recommendations will appear in follow up notes. If you have any questions, please contact pharmacy at [phone]. Age: [age] year old Allergies: ALLERGIES Allergen Reactions Bactrim [Sulfametho* Hives Hydrocodone Itching Penicillins Other: See Comments hives Valium [Diazepam] Other: See Comments cross reaction with alcohol addiction Last 3 Encounter Wt Readings: Date: Wt: 03/15/2025 57 kg (125 lb 10.6 oz) 03/10/2025 59 kg (130 lb) 01/13/2025 62.6 kg (138 lb) Last 1 Encounter Ht Readings: Date: Ht: 03/15/2025 165.1 cm (5' 5) CrCl: 93.3 mL/min Temp (24hrs), Av.9 ?C (98.4 ?F), Min:36.6 ?C (97.9 ?F), Max:37 ?C (98.6 ?F) - Current Temp: 36.9 ?C (98.4 ?F) Labs BUN (mg/dL) Date Value 03/19/2025 10 03/18/2025 10 03/17/2025 11 Creatinine (mg/dL) Date Value 03/19/2025 0.57 03/18/2025 0.52 03/17/2025 0.65 WBC (k/uL) Date Value 03/19/2025 14.59 (H) 03/18/2025 17.37 (H) 03/17/2025 19.89 (H) Vancomycin Levels: No results found for: FELTON MORTON, PHARMACIST, [facility] CTA CHEST (NONGATED) W IVCON on 03-19-2025 CTA CHEST (NONGATED) W IVCON * * *Final Report* * * DATE OF EXAM: Mar 19 2025 10:16PM [facility] 0123 - CTA CHEST (NONGATED) W IVCON / PROCEDURE REASON: Pulmonary embolism (PE) suspected, unknown D-dimer * * * * Physician Interpretation * * * * EXAMINATION: CHEST CT WITH CONTRAST (PULMONARY EMBOLISM PROTOCOL) CLINICAL HISTORY: Chest pain and shortness of breath Technique: Spiral CT acquisition of the chest from the thoracic inlet to the upper abdomen following IV contrast. Axial 1 and 3 mm thick slices plus coronal and sagittal reformatted images. MQ: CTCP_5 Contrast: 85 mL Omnipaque [address] Radiation dose: Integrated Dose-length product (DLP) for this visit = 347.74 mGy*cm CT Dose Reduction Employed: Automated exposure control(AEC) and iterative recon Comparison: 03/16/2025 RESULT: Limitations: None. Evaluation for thromboembolic disease: - Right heart chambers: No thromboembolic disease. - Main pulmonary arteries: No thromboembolic disease. - Lobar pulmonary arteries: No thromboembolic disease. - Segmental pulmonary arteries: No thromboembolic disease. - Subsegmental pulmonary arteries: No thromboembolic disease. - Additional pulmonary artery findings: The main pulmonary artery is normal in caliber. Lines, tubes, and devices: None. Lung parenchyma and airways: Evaluation of lung parenchyma demonstrates airspace consolidation involving the left lower lobe with minimal aeration noted. Findings have minimally improved since previous exam. There has been improvement in the previously noted right lower lobe airspace consolidation. No new infiltrate is present. Moderate emphysematous changes are noted. Pleural space: No pleural effusion. No pleural thickening. Lower neck, lymph nodes, and mediastinum: The imaged thyroid gland is normal. No lymphadenopathy in the supraclavicular, axillary, mediastinal, or hilar regions. Heart, pericardium, and thoracic vessels: The thoracic aorta is normal in caliber. The cardiac chambers are normal in size. No coronary artery atherosclerotic calcifications are noted, although the study is not optimized for coronary assessment. No pericardial effusion or thickening. Bones and soft tissues: No destructive bone lesion. Chest wall is unremarkable. Upper abdomen: No abnormality in the imaged upper abdomen. Localizer images: No additional findings. IMPRESSION: 1. No intraluminal filling defects are seen within the pulmonary arteries to suggest pulmonary artery emboli. 2. Near complete consolidation of the left lower lobe, mildly improved since previous exam. 3. Improved aeration of the right lung base since previous exam. 4. Moderate to advanced emphysema. Specialist Managers: PSCB Transcribe Date/Time: Mar 19 2025 11:10P Dictated by : DEBORAH PARK MD This examination was interpreted and the report reviewed and electronically signed by: DEBORAH PARK MD on Mar 19 2025 11:29PM EST [id number] Normal [facility] HIGH SENSITIVITY TROPONIN Io n 03-19-2025 Tropinin I.cardiac panel High sensitivity method 7.4 pg/mL Normal 0.0-34.0 [facility] Comment on above: Order Comment: Reggie fajardo Type: BLOOD SPECIMEN Ordering Facility: [facility] Address: [address] [place] [address] Performed By: #### 3 4528-0, 71290-1 #### [facility] CLIA [id number] [address] MEDICAL EMERon 03-19-2025 MEDICAL FREYA HNO ID: [id number] Author: CANDIE HORTA APRN.RN FACULTY Service: Critical Care Author Type: Nurse Practitioner Type: Chg in Clinical Condition Filed: 03/19/2025 16:13 Note Text: Rapid response was called as patient is found to be tachycardic, tachypneic, and hypoxic. Arrived to the room, patient has very tight breath sounds and states she is anxious. Of note, patient had similar presentation in the ICU before leaving. This was also treated with morphine, which assisted with resolution of symptoms. Sinus tachycardia noted on telemetry. CXR showed symptom compensated heart failure. Patient was given metoprolol, Lasix, and morphine. She was also given an aerosol treatment. With these interventions, patient's respiratory status and heart rate improved. She will remain on main. Attending physicianwas at bedside and was aware. CCT: 17 min Normal [facility] Magnesium SerPl-mCncon 03-19 Magnesium [Mass/Vol] 1.8 mg/dL Normal 1.6-2.6 [facility] Comment on above: Order Comment: Reggie fajadro Type: BLOOD SPECIMEN Ordering Facility: [facility] Address: [address] [place] [address] Performed By: #### 3 4528-0, 83210-6 #### [facility] CLIA [id number] [address] [place] [address] [place] NT-proBNP SerPl-ncon 03-19 Natriuretic peptide.B prohormone N-Terminal [Mass/Vol] 3517 pg/mL High <125 [facility] Comment on above: Order Comment: Reggie fajardo Type: BLOOD SPECIMEN Ordering Facility: [facility] Address: [address] [place] [address] Result Comment: NT-p roBNP results of less than 300 pg/mL likely rules out acute congestive heart failure with 99% predictive value. NOTE: These cutoff points are suggested for ACUTE CHF DIAGNOSIS only Less than 50 years\X09\ Greater than 450 pg/mL 50 - 75 years\X09\\X09\ Greater than 900 pg/mL Greater than 75 years\X09\ Greater than 1800 pg/mL Performed By: #### 3 4528-0, 90690-5 #### [facility] CLIA [id number] [address] [place] [address] [place] Procalcitonin [facility]-ncon 0 03-19-2025 Procalcitonin [Mass/Vol] 1.51 ng/mL High 0.00-0.50 [facility] Comment on above: Order Comment: Reggie fajardo Type: BLOOD SPECIMEN Ordering Facility: [facility] Address: [address] [place] [address] Result Comment: PCT Concentration Interpretation PCT <=0.1 ng/mL: Normal range for healthy adults PCT >0.1 ng/mL and <0.5 ng/mL: Systemic infection (sepsis) is possible and may require antibiotic treatment, but other conditions are known to elevate PCT as well. PCT >0.5 ng/mL: Should be considered at risk for developing severe sepsis or septic shock. PCT >2.0 ng/mL: Important systemic inflammatory response. Almost exclusively indicates episode of severe bacterial sepsis or septic shock. Performed By: #### 3 4528-0, 09618-7 #### [facility] CLIA [id number] [address] [place] [address] [place] STAPHYLOCOCCUS AUREUS AND MR SA SCREEN, PCR, NASALon 03-19-2025 S. aureus and MRSA panel KANDY+probe (Nose) Methicillin-SUSCEPTIBLE Staphylococcus aureus Detected Abnormal Not Detected [facility] Comment on above: Order Comment: Speci men Type: BLOOD SPECIMEN Ordering Facility: [facility] Address: [address] [place] [address] Performed By: #### S LACTR #### [facility] CLIA [id number] [address] [place] [address] [place] XR CHEST 1V FRONTALon 2024 XR CHEST 1V FRONTAL * * *Final Report* * * DATE OF EXAM: Mar 19 2025 3:35PM RHX 5290 - XR CHEST 1V FRONTAL / PROCEDURE REASON: Shortness of breath * * * * Physician Interpretation * * * * EXAMINATION: CHEST RADIOGRAPH (SINGLE VIEW AP OR PA) CLINICAL HISTORY: Shortness of breath MQ: XC1_5 Comparison: Chest x-ray 03/16/2025 , CT chest 03/16/2025. RESULT: Lines, tubes, and devices: Interval removal of the ET tube, enteric tube and left IJ central line. EKG leads overlie the chest. Lungs and pleura: There is improved aeration of the left lower lung with residual basilar and retrocardiac opacity. A skinfold is noted projecting over the left mid chest. The right lung appears clear. No significant effusion. No pneumothorax. Cardiomediastinal silhouette: Normal cardiomediastinal silhouette. Other: Osseous structures appear stable. IMPRESSION: Improved aeration in the left lower lung with residual basilar and retrocardiac opacity. Dictated by Capital Project Engineer: Daniel Castro DO I, Jose Guadalupe Morocho MD, have supervised the procedure and/or image review, and agree with the above interpretation and report. Specialist Managers: PSCB Transcribe Date/Time: Mar 19 2025 3:35P Dictated by : DANIEL CASTRO DO This examination was interpreted and the report reviewed and electronically signed by: JOSE GUADALUPE MOROCHO MD on Mar 19 2025 3:41PM EST [id number] Normal [facility] Basic metabolic 2000 panelon 03-18-2025 Anion gap [Moles/Vol] 10 mmol/L Normal 5-16 [facility] Comment on above: Order Comment: Speci men Type: BLOOD SPECIMENOrdering Facility: [facility] Address: [address] [place] [address] Performed By: #### 2 4321-2, 54955-6, 2777-1, 2276-4, 11431-9 ####[facility] [id number] [place] [address] [place] Calcium [Mass/Vol] 9.1 mg/dL Normal 8.5-10.5 [facility] Comment on above: Order Comment: Speci men Type: BLOOD SPECIMENOrdering Facility: [facility] Address: [address] [place] [address] Performed By: #### 2 4321-2, 52760-9, 2777-1, 6-4, 55258-0 ####[facility] [id number] [place] [address] [place] Chloride [Moles/Vol] 101 mmol/L Normal 98-107 [facility] Comment on above: Order Comment: Speci men Type: BLOOD SPECIMENOrdering Facility: [facility] Address: [address] [place] [address] Performed By: #### 2 4321-2, 83989-2, 2777-1, 6-4, 64515-6 ####[facility] [id number] [place] [address] [place] CO2 [Moles/Vol] 31 mmol/L Normal 21-32 [facility] Comment on above: Order Comment: Speci men Type: BLOOD SPECIMENOrdering Facility: [facility] Address: [address] [place] [address] Performed By: #### 2 4321-2, 29346-8, 2777-1, 6-4, 05933-9 ####[facility] [id number] [place] [address] [place] Creatinine [Mass/Vol] 0.52 mg/dL Normal 0.51-0.95 [facility] Comment on above: Order Comment: Reggie fajardo Type: BLOOD SPECIMENOrdering Facility: [facility] Address: [address] [place] [address] Result Comment: Gretta ents receiving either N-Acetylcysteine (NAC) or Metamizole prior to venipuncture, may have falsely depressed results. Performed By: #### 2 4321-2, 24010-6, 2777-1, 2276-4, 68626-6 ####[facility]ORY[facility]IA [id number] [place] [id number] [facility] Creatinine and Glomerular filtration rate.predicted panel (S/P/Bld) 106 mL/min/1.73m??? Normal >=60 [facility] Comment on above: Order Comment: Reggie fajardo Type: BLOOD SPECIMENOrdering Facility: [facility] Address: [address] [place] [address] Result Comment: Pavan mated Glomerular Filtration Rate [...] reflect actual GFR. Performed By: #### 2 4321-2, 63702-6, 2777-1, 2276-4, 17659-0 ####[facility] [id number] [place] [id number] [place] Glucose [Mass/Vol] 103 mg/dL High 70-100 [facility] Comment on above: Order Comment: Reggie fajardo Type: BLOOD SPECIMENOrdering Facility: [facility] Address: [address] [place] [address] Result Comment: The [place] Diabetes Association (ADA) provides guidance for cutoff [...] Standards of Medical Care in Diabetes 2016, [place] [employer]. Diabetes Care. 2016.39(Suppl 1). Results may be falsely elevated after the administration of Sulfapyridine. Results may be falsely depressed after the administration of Sulfasalazine. Performed By: #### 2 4321-2, 96225-6, 2777-1, 2276-4, 79158-3 ####[facility] [id number] [place] [id number] [place] Potassium [Moles/Vol] 3.5 mmol/L Normal 3.5-5.1 [facility] Comment on above: Order Comment: Reggie fajardo Type: BLOOD SPECIMENOrdering Facility: [facility] Address: [address] [place] [address] Performed By: #### 2 4321-2, 18394-0, 2777-1, 6-4, 96023-0 ####[facility]ORY[facility] [id number] [place] [id number] [place] Sodium [Moles/Vol] 142 mmol/L Normal 136-145 [facility] Comment on above: Order Comment: Reggie fajardo Type: BLOOD SPECIMENOrdering Facility: [facility] Address: [address] [place] [address] Performed By: #### 2 4321-2, 69326-6, 2777-1, 6-4, 31449-2 ####[facility]ORYCLIA [id number] [place] [id number] [place] Urea nitrogen [Mass/Vol] 10 mg/dL Normal 7-26 [facility] Comment on above: Order Comment: Reggie fajardo Type: BLOOD SPECIMENOrdering Facility: [facility] Address: [address] [place] [address] Performed By: #### 2 4321-2, 82229-3, 2777-1, 2276-4, 29370-0 ####[facility]ORYCLIA [id number] [place] [id number] [facility] [place] C diff Tox gens Stl Ql KANDY+p robeon 03-18-2025 C. difficile toxin genes KANDY+probe Ql (Stl) Negative Normal Negative for C. difficile toxin by PCR [facility] Comment on above: Order Comment: Speci men Type: BLOOD SPECIMEN Ordering Facility: [facility] Address: [address] [place] [address] Performed By: #### 3 4528-0, 23163-2 #### [facility] CLIA [id number] [facility] CBC panel Auto (Bld)on 03-18 Erythrocyte distribution width (RBC) [Ratio] 15.1 % High 11.5-15.0 [facility] Comment on above: Order Comment: Speci men Type: BLOOD SPECIMENOrdering Facility: [facility] Address: [address] [place] [address] Performed By: #### 5 8410-2 ####[facility]ORYCLIA [id number] [address] [place] Hematocrit (Bld) [Volume fraction] 29.5 % Low 36.0-46.0 [facility] Comment on above: Order Comment: Speci men Type: BLOOD SPECIMENOrdering Facility: [facility] Address: [address] [place] [address] Performed By: #### 5 8410-2 ####[facility]ORYCLIA [id number] [address] [place] Hemoglobin (Bld) [Mass/Vol] 9.2 g/dL Low 11.5-15.5 [facility] Comment on above: Order Comment: Speci men Type: BLOOD SPECIMENOrdering Facility: [facility] Address: [address] [place] [address] Performed By: #### 5 8410-2 ####[facility]ORYCLIA [id number] [address] [place] MCH (RBC) [Entitic mass] 26.7 pg Normal 26.0-34.0 [facility] Comment on above: Order Comment: Speci men Type: BLOOD SPECIMENOrdering Facility: [facility] Address: [address] [place] [address] Performed By: #### 5 8410-2 ####[facility]ORYCLIA [id number] [address] [place] MCHC (RBC) [Mass/Vol] 31.2 g/dL Normal 30.5-36.0 [facility] Comment on above: Order Comment: Speci men Type: BLOOD SPECIMENOrdering Facility: [facility] Address: [address] [place] [address] Performed By: #### 5 8410-2 ####[facility]ORYCLIA [id number] [address] MCV (RBC) [Entitic vol] 85.5 fL Normal 80.0-100.0 [facility] Comment on above: Order Comment: Speci men Type: BLOOD SPECIMENOrdering Facility: [facility] Address: [address] [place] [address] Performed By: #### 5 8410-2 ####[facility]ORYCLIA [id number] [address] [place] Nucleated RBC (Bld) [#/Vol] 10*3/uL Normal <0.01 [facility] Comment on above: Order Comment: Speci men Type: BLOOD SPECIMENOrdering Facility: [facility] Address: [address] [place] [address] Performed By: #### 5 8410-2 ####[facility]ORYCLIA [id number] [address] [place] Platelet mean volume (Bld) [Entitic vol] 9.8 fL Normal 9.0-12.7 [facility] Comment on above: Order Comment: Speci men Type: BLOOD SPECIMENOrdering Facility: [facility] Address: [address] [place] [address] Performed By: #### 5 8410-2 ####[facility]ORYCLIA [id number] [place] [id number] [facility] Platelets (Bld) [#/Vol] 332 10*3/uL Normal 150-400 [facility] Comment on above: Order Comment: Speci men Type: BLOOD SPECIMENOrdering Facility: [facility] Address: [address] [place] [address] Performed By: #### 5 8410-2 ####[facility]ORYCLIA [id number] [address] [place] RBC (Bld) [#/Vol] 3.45 10*6/uL Low 3.90-5.20 [facility] Comment on above: Order Comment: Speci men Type: BLOOD SPECIMENOrdering Facility: [facility] Address: [address] [place] [address] Performed By: #### 5 8410-2 ####[facility]ORYCLIA [id number] [address] [place] WBC (Bld) [#/Vol] 17.37 10*3/uL High 3.70-11.00 [facility] Comment on above: Order Comment: Speci men Type: BLOOD SPECIMENOrdering Facility: [facility] Address: [address] [place] [address] Performed By: #### 5 8410-2 ####[facility]ORYCLIA [id number] [place] [id number] [facility] Calcium.ionized [Moles/Vol]o n 03-18-2025 Calcium.ionized (Bld) [Mass/Vol] 1.20 mmol/L Normal 1.08-1.30 [facility] Comment on above: Order Comment: Speci men Type: BLOOD SPECIMENOrdering Facility: [facility] Address: [address] [place] [address] Performed By: #### 1 995-0 ####[facility]ORYCLIA [id number] [place] [address] [place] Calcium.ionized adjusted to pH 7.4 (Bld) [Moles/Vol] 1.22 mmol/L Normal 1.08-1.30 [facility] Comment on above: Order Comment: Speci men Type: BLOOD SPECIMENOrdering Facility: [facility] Address: [address] [place] [address] Performed By: #### 1 995-0 ####[facility]ORYCLIA [id number] [place] [address] [place] Ferritin SerPl-mCncon 2024 Ferritin [Mass/Vol] 203.9 ng/mL Normal 8.0-307.0 [facility] Comment on above: Order Comment: Speci [facility] Type: BLOOD SPECIMEN [facility] Address: [address] [place] [address] Performed By: #### 3 4528-0, 67910-4 #### [facility] CLIA [id number] [address] [place] [address] [place] Gastrointestinal pathogens p tuan KANDY+probe (Stl)on 03-18-2025 ADENOVIRUS F 40/41 DNA Not detected Normal Not Detecte d [facility] Comment on above: Order Comment: Speci [facility] Type: BLOOD SPECIMEN [facility] Address: [address] [place] [address] Performed By: #### 3 4528-0, 40048-3 #### [facility] CLIA [id number] [address] [place] [address] [place] ASTROVIRUS RNA Not detected Normal Not Detected [facility] Comment on above: Order Comment: Speci men Type: BLOOD SPECIMEN [facility] Address: [address] [place] [address] Performed By: #### 3 4528-0, 97207-6 #### [facility] CLIA [id number] [address] [place] [address] [facility] [place] C. cayetanensis DNA KANDY+probe Ql (Unsp spec) Not detected Normal Not Detected [facility] Comment on above: Order Comment: Speci men Type: BLOOD SPECIMEN [facility] Address: [address] [place] [address] Performed By: #### 3 4528-0, 00125-9 #### [facility] CLIA [id number] [address] [place] [address] [place] Campylobacter sp DNA.diarrheagenic KANDY+probe Ql (Stl) Not detected Normal Not Detected [facility] Comment on above: Order Comment: Speci men Type: BLOOD SPECIMEN [facility] Address: [address] [place] [address] Performed By: #### 3 4528-0, 89668-7 #### [facility] CLIA [id number] [address] [place] [address] [place] Cryptosporidium sp DNA KANDY+probe Ql (Unsp spec) Not detected Normal Not Detected [facility] Comment on above: Order Comment: Speci men Type: BLOOD SPECIMEN [facility] Address: [address] [place] [address] Performed By: #### 3 4528-0, 50159-4 #### [facility] CLIA [id number] [address] [place] [address] OF [place] E. coli O157:H7 DNA KANDY+probe Ql (Unsp spec) Not applicable Normal Not detected [facility] Comment on above: Order Comment: Speci men Type: BLOOD SPECIMEN [facility] Address: [address] [place] [address] Performed By: #### 3 4528-0, 67366-9 #### [facility] CLIA [id number] [address] [place] [address] [place] E. coli stx1+stx2 genes KANDY+probe Ql (Stl) Not detected Normal Not Detected [facility] Comment on above: Order Comment: Speci men Type: BLOOD SPECIMEN [facility] Address: [address] [place] [address] Performed By: #### 3 4528-0, 94566-9 #### [facility] CLIA [id number] [address] [place] [address] [facility] E. histolytica DNA KANDY+probe Ql (Unsp spec) Not detected Normal Not Detected [facility] Comment on above: Order Comment: Speci men Type: BLOOD SPECIMEN [facility] Address: [address] [place] [address] Performed By: #### 3 4528-0, 68002-9 #### [facility] CLIA [id number] [address] [place] [address] [facility] [place] ENTEROAGGREGATIVE E. COLI (EAEC) DNA Not detected Normal Not Detected [facility] Comment on above: Order Comment: Speci men Type: BLOOD SPECIMEN [facility] Address: [address] [place] [address] Performed By: #### 3 4528-0, 01156-4 #### [facility] CLIA [id number] [address] [place] [address] OF [place] ENTEROPATHOGENIC E. COLI (EPEC) DNA Not detected Normal Not detected [facility] Comment on above: Order Comment: Speci men Type: BLOOD SPECIMEN [facility] Address: [address] [place] [address] Performed By: #### 3 4528-0, 32195-2 #### [facility] CLIA [id number] [address] [place] [address] [facility] [place] ENTEROTOXIGENIC E. COLI (ETEC) DNA Not detected Normal Not Detected [facility] Comment on above: Order Comment: Speci men Type: BLOOD SPECIMEN [facility] Address: [address] [place] [address] Performed By: #### 3 4528-0, 58031-0 #### [facility] CLIA [id number] [address] [place] [address] [place] G. lamblia DNA KANDY+probe Ql (Unsp spec) Not detected Normal Not Detected [facility] Comment on above: Order Comment: Speci men Type: BLOOD SPECIMEN [facility] Address: [address] [place] [address] Performed By: #### 3 4528-0, 44743-9 #### [facility] CLIA [id number] [address] [place] [address] [place] NOROVIRUS GI/GII RNA Detected Abnormal Not Detected [facility] Comment on above: Order Comment: Speci men Type: BLOOD SPECIMEN [facility] Address: [address] [place] [address] Result Comment: The Domain [employer] Gastrointestinal Panel has known specificity limitations for norovirus detection. False positives are more likely when prevalence is low (ie. summer). Standalone norovirus PCR (SQNORPCR) is available if confirmation is desired. Performed By: #### 3 4528-0, 69708-5 #### [facility] CLIA [id number] [address] [place] [address] OF [facility] PLESIOMONAS SHIGELLOIDES DNA Not detected Normal Not Detected [facility] Comment on above: Order Comment: Reggie fajardo Type: BLOOD SPECIMEN [facility] Address: [address] [place] [address] Performed By: #### 3 4528-0, 21612-9 #### [facility] CLIA [id number] [address] [place] [address] [place] ROTAVIRUS A RNA Not detected Normal Not Detected [facility] Comment on above: Order Comment: Speci men Type: BLOOD SPECIMEN [facility] Address: [address] [place] [address] Performed By: #### 3 4528-0, 82655-5 #### [facility] CLIA [id number] [address] [place] [address] [facility] [place] Salmonella sp DNA KANDY+probe Ql (Unsp spec) Not detected Normal Not Detected [facility] Comment on above: Order Comment: Kettyi men Type: BLOOD SPECIMEN [facility] Address: [address] [place] [address] Performed By: #### 3 4528-0, 46072-9 #### [facility] CLIA [id number] [address] [place] [address] SAPOVIRUS (GENOGROUPS I, II, IV, V) RNA Not detected Normal Not Detected [facility] Comment on above: Order Comment: Speci men Type: BLOOD SPECIMEN [facility] Address: [address] [place] [address] Performed By: #### 3 4528-0, 23728-0 #### [facility] CLIA [id number] [address] [place] [address] [place] Shigella species+EIEC invasion plasmid antigen H ipaH gene KANDY+probe Ql (Stl) Not detected Normal Not Detected [facility] Comment on above: Order Comment: Speci men Type: BLOOD SPECIMEN [facility] Address: [address] [place] [address] Performed By: #### 3 4528-0, 68130-4 #### [facility] CLIA [id number] [address] [place] [address] [place] V. cholerae DNA KANDY+probe Ql (Unsp spec) Not detected Normal Not Detected [facility] Comment on above: Order Comment: Speci men Type: BLOOD SPECIMEN [facility] Address: [address] [place] [address] Performed By: #### 3 4528-0, 53975-3 #### [facility] CLIA [id number] [address] [place] [address] [place] Vibrio sp DNA KANDY+probe Nom (Unsp spec) Not detected Normal Not Detected [facility] Comment on above: Order Comment: Speci men Type: BLOOD SPECIMEN [facility] Address: [address] [place] [address] Performed By: #### 3 4528-0, 29375-9 #### [facility] CLIA [id number] Yersinia sp DNA KANDY+probe Nom (Unsp spec) Not detected Normal Not Detected [facility] Comment on above: Order Comment: Speci men Type: BLOOD SPECIMEN [facility] Address: [address] [place] [address] Performed By: #### 3 4528-0, 82989-1 #### [facility] CLIA [id number] [address] [place] [address] [place] Iron and Iron binding capaci ty panelon 03-18-2025 Iron [Mass/Vol] 16 ug/dL Low 50-170 [facility] Comment on above: Order Comment: Speci men Type: BLOOD SPECIMEN [facility] Address: [address] [place] [address] Result Comment: Gretta ents treated with metal-binding drugs (e.g.deferoxamine) may have depressed iron values, as chelated iron may not properly react in the Siemens iron assay. Performed By: #### 3 4528-0, 97842-4 #### [facility] CLIA [id number] [address] [place] [address] [place] Iron binding capacity [Mass/Vol] 203 ug/dL Low 221-481 [facility] Comment on above: Order Comment: Speci men Type: BLOOD SPECIMEN [facility] Address: [address] [place] [address] Performed By: #### 3 4528-0, 34930-5 #### [facility] CLIA [id number] [address] [place] [address] [place] Iron/TIBC [Molar ratio] 7.9 % Low 22.0-44.0 M [facility] Comment on above: Order Comment: Speci men Type: BLOOD SPECIMEN [facility] Address: [address] [place] [address] Performed By: #### 3 4528-0, 61939-3 #### [facility] CLIA [id number] [address] [place] [address] [place] Magnesium SerPl-mCncon 03-18 Magnesium [Mass/Vol] 1.6 mg/dL Normal 1.6-2.6 [facility] Comment on above: Order Comment: Reggie fajardo Type: BLOOD SPECIMEN [facility] Address: [address] [place], [place] [address] [address] Performed By: #### 3 4528-0, 54334-9 #### [facility] CLIA [id number] [address] [place], [place] [address] [facility] NURSING PROGon 03-18-2025 NURSING PROG HNO ID: [id number] Author: RINKU STERN RN Service: Nursing Author Type: Registered Nurse Type: Nursing Progress Note Filed: 03/18/2025 10:54 Note Text: Other: Patient Med Rec incomplete on transfer, Nurse Colleen Notified on 7m, patient unsure of medications, asked sister (Domonique) to bring in list from home. Report called, all questions answered. Normal [facility] 03-18 Phosphate [Mass/Vol] 3.8 mg/dL Normal 2.5-4.9 [facility] Comment on above: Order Comment: Reggie fajardo Type: BLOOD SPECIMEN [facility] Address: [address] [place] [address] Result Comment: DELT A CHECK&XA&Delta Check Reviewed Elevated m-protein (paraprotein) levels in the serum may be exhibited in patients with monoclonal gammopathies, causing falsely elevated inorganic phosphorus results. Performed By: #### 3 4528-0, 00239-8 #### [facility] CLIA [id number] [address] [place], [place] [address] [place] Respiratory Cultureon 2024 RESPC Normal [facility] Comment on above: Performed By: #### M 100.2000, M100.2400 ####[facility] [id number] [place], [place], [address] Basic metabolic 2000 panelon 03-17-2025 Anion gap [Moles/Vol] 4 mmol/L Low 5-16 [facility] Comment on above: Order Comment: Speci men Type: BLOOD SPECIMENOrdering Facility: [facility] Address: [address] [place] [id number] Performed By: #### 2 4321-2, , 2776-09 ####[facility]ORYCLIA [id number] [place] [id number] [place] Calcium [Mass/Vol] 9.0 mg/dL Normal 8.5-10.5 [facility] Comment on above: Order Comment: Speci men Type: BLOOD SPECIMENOrdering Facility: [facility] Address: [address] [place] [address] Performed By: #### 2 4321-2, , 2776-09 ####[facility]ATORYCLIA [id number] [place] [address] [place] Chloride [Moles/Vol] 104 mmol/L Normal 98-107 [facility] Comment on above: Order Comment: Speci men Type: BLOOD SPECIMENOrdering Facility: [facility] Address: [address] [place], [place] [address] Performed By: #### 2 4321-2, , 2776-09 ####[facility]ATORYCLIA [id number] [place] [address] [place] CO2 [Moles/Vol] 32 mmol/L Normal 21-32 [facility] Comment on above: Order Comment: Speci men Type: BLOOD SPECIMENOrdering Facility: [facility] Address: [address] [place] [address] Performed By: #### 2 4321-2, , 2776-09 ####[facility]ORYCLIA [id number] [place] [address] [place] Creatinine [Mass/Vol] 0.65 mg/dL Normal 0.51-0.95 [facility] Comment on above: Order Comment: Speci men Type: BLOOD SPECIMENOrdering Facility: [facility] Address: [address] [place] [address] Result Comment: Gretta ents receiving either N-Acetylcysteine (NAC) or Metamizole prior to venipuncture, may have falsely depressed results. Performed By: #### 2 4321-2, 93178-8, 2777-1 ####[facility]ORYCLIA [id number] [place] [id number] [place] Creatinine and Glomerular filtration rate.predicted panel (S/P/Bld) 100 mL/min/1.73m??? Normal >=60 [facility] Comment on above: Order Comment: eRggie fajardo Type: BLOOD SPECIMENOrdering Facility: [facility] Address: [address] [place] [address] Result Comment: Pavan mated Glomerular Filtration Rate [...] reflect actual GFR. Performed By: #### 2 4321-2, 30983-9, 277-1 ####[facility]ATORYCLIA [id number] [place] [address] [place] Glucose [Mass/Vol] 179 mg/dL High 70-100 [facility] Comment on above: Order Comment: Reggie fajardo Type: BLOOD SPECIMENOrdering Facility: [facility] Address: [address] [place] [address] Result Comment: The [place] [employer] (ADA) provides guidance for cutoff [...] Standards of Medical Care in Diabetes 2016, [place] [employer]. Diabetes Care. 2016.39(Suppl 1). Results may be falsely elevated after the administration of Sulfapyridine. Results may be falsely depressed after the administration of Sulfasalazine. Performed By: #### 2 4321-2, , 2776-09 ####[facility]ATORYCLIA [id number] [place] [id number] [place] Potassium [Moles/Vol] 2.4 mmol/L Critically low 3.5-5.1 [facility] Comment on above: Order Comment: Speci men Type: BLOOD SPECIMENOrdering Facility: [facility] Address: [address] [place] [address] Result Comment: CRIT ICAL Performed By: #### 2 4321-2, , 2776-09 ####[facility]ORYCLIA [id number] [place] [id number] [place] Sodium [Moles/Vol] 140 mmol/L Normal 136-145 [facility] Comment on above: Order Comment: Speci men Type: BLOOD SPECIMENOrdering Facility: [facility] Address: [address] [place], [place] [address] Performed By: #### 2 4321-2, , 2776-09 ####[facility]ORYCLIA [id number] [place] [address] [place] Urea nitrogen [Mass/Vol] 11 mg/dL Normal 7-26 [facility] Comment on above: Order Comment: Speci men Type: BLOOD SPECIMENOrdering Facility: [facility] Address: [address] [place] [address] Performed By: #### 2 4321-2, , 2776-09 ####[facility]ORYCLIA [id number] [place] [id number] [place] CBC panel Auto (Bld)on 03-17 Erythrocyte distribution width (RBC) [Ratio] 14.6 % Normal 11.5-15.0 [facility] Comment on above: Order Comment: Speci men Type: BLOOD SPECIMENOrdering Facility: [facility] Address: [address] [place] [address] Performed By: #### 5 8410-2 ####[facility]ORYCLIA [id number] [address] [place] Hematocrit (Bld) [Volume fraction] 29.9 % Low 36.0-46.0 [facility] Comment on above: Order Comment: Speci men Type: BLOOD SPECIMENOrdering Facility: [facility] Address: [address] [place] [address] Performed By: #### 5 8410-2 ####[facility]ORYCLIA [id number] [place] [address] [place] Hemoglobin (Bld) [Mass/Vol] 9.3 g/dL Low 11.5-15.5 [facility] Comment on above: Order Comment: Speci men Type: BLOOD SPECIMENOrdering Facility: [facility] Address: [address] [place] [address] Performed By: #### 5 8410-2 ####[facility]ORYCLIA [id number] [address] [place] MCH (RBC) [Entitic mass] 26.4 pg Normal 26.0-34.0 [facility] Comment on above: Order Comment: Speci men Type: BLOOD SPECIMENOrdering Facility: [facility] Address: [address] [place] [address] Performed By: #### 5 8410-2 ####[facility]ORYCLIA [id number] [place] [address] [place] MCHC (RBC) [Mass/Vol] 31.1 g/dL Normal 30.5-36.0 [facility] Comment on above: Order Comment: Speci men Type: BLOOD SPECIMENOrdering Facility: [facility] Address: [address] [place] [address] Performed By: #### 5 8410-2 ####[facility]ORYCLIA [id number] [place] [address] [place] MCV (RBC) [Entitic vol] 84.9 fL Normal 80.0-100.0 M [facility] Comment on above: Order Comment: Speci men Type: BLOOD SPECIMENOrdering Facility: [facility] Address: [address] [place] [address] Performed By: #### 5 8410-2 ####[facility]ORYCLIA [id number] [place] [id number] [place] Nucleated RBC (Bld) [#/Vol] 10*3/uL Normal <0.01 [facility] Comment on above: Order Comment: Speci men Type: BLOOD SPECIMENOrdering Facility: [facility] Address: [address] [place] [address] Performed By: #### 5 8410-2 ####[facility]ATORYCLIA [id number] [place] [address] [place] Platelet mean volume (Bld) [Entitic vol] 10.4 fL Normal 9.0-12.7 [facility] Comment on above: Order Comment: Speci men Type: BLOOD SPECIMENOrdering Facility: [facility] Address: [address] [place] [address] Performed By: #### 5 8410-2 ####[facility]ORYCLIA [id number] [place] [address] [place] Platelets (Bld) [#/Vol] 333 10*3/uL Normal 150-400 [facility] Comment on above: Order Comment: Speci men Type: BLOOD SPECIMENOrdering Facility: [facility] Address: [address] [place] [address] Performed By: #### 5 8410-2 ####[facility]ORYCLIA [id number] [place] [address] [place] RBC (Bld) [#/Vol] 3.52 10*6/uL Low 3.90-5.20 [facility] Comment on above: Order Comment: Speci men Type: BLOOD SPECIMENOrdering Facility: [facility] Address: [address] [place] [address] Performed By: #### 5 8410-2 ####[facility]ATORYCLIA [id number] [place] [address] [place] WBC (Bld) [#/Vol] 19.89 10*3/uL High 3.70-11.00 [facility] Comment on above: Order Comment: Reggie fajardo Type: BLOOD SPECIMENOrdering Facility: [facility] Address: [address] [place] [address] Performed By: #### 5 8410-2 ####[facility]ORYCLIA [id number] [address] OF [place] Magnesium SerPl-ncon 03-17 Magnesium [Mass/Vol] 1.8 mg/dL Normal 1.6-2.6 [facility] Comment on above: Order Comment: Reggie fajardo Type: BLOOD SPECIMENOrdering Facility: [facility] Address: [address] [place] [address] Performed By: #### 2 4321-2, 76610-3, 2777-1 ####[facility]ORYCLIA [id number] [address] OF [facility] Phosphate SerPl-ncon 03-17 Phosphate [Mass/Vol] 1.0 mg/dL Low 2.5-4.9 [facility] Comment on above: Order Comment: Reggie fajardo Type: BLOOD SPECIMENOrdering Facility: [facility] Address: [address] [place] [address] Result Comment: CRIT ICAL Elevated m-protein (paraprotein) levels in the serum may be exhibited in patients with monoclonal gammopathies, causing falsely elevated inorganic phosphorus results. Performed By: #### 2 4321-2, 57483-6, 2777-1 ####[facility]ORYCLIA [id number] [place] [id number] [place] ALLIED HEALTHon 03-16-2025 ALLIED HEALTH HNO ID: [id number] Author: SUELLEN CALDERON Tech Service: Radiology Author Type: Assistant Speech Language Pathologist Type: Allied Health Filed: 03/16/2025 01:47 Note Text: Summary: ct Radiology Service Progress Note DATE OF SERVICE: March 16, 2025 TIME: 1:46 AM PATIENT IDENTITY VERIFICATION COMPLETED USING TWO (2) STANDARD IDENTIFIERS: Name and Date of confirmed by identification band. FALL SCREENING: Has the patient had 2 falls in the last year or 1 fall with injury or currently using an Ambulatory Assistive Device (Walker, Cane, Wheelchair, Crutches, etc.)? Inpatient: Screened on floor PATIENT GENDER DATA: Assigned female at . status: : No status: N/A PATIENT RELEVANT IMPLANT DATA REVIEWED: Not Applicable PATIENT PRESENTS WITH AN IMPLANTABLE OR ATTACHED PARK MANAGER: No ALLERGIES: Reviewed and unchanged CONTRAST ALLERGY: NO. EXAM: CT -CONTRAST INDUCED NEPHROPATHY RISK FACTORS: Patient age > 60 years CREATININE: Creatinine Date Value Ref Range Status 03/16/2025 0.93 0.51 - 0.95 mg/dL Final Comment: Patients receiving either N-Acetylcysteine (NAC) or Metamizole prior to venipuncture, may have falsely depressed results. 12/19/2024 0.81 0.58 - 0.96 mg/dL Final 08/12/2024 0.82 0.58 - 0.96 mg/dL Final Estimated Glomerular Filtration Rate Date Value Ref Range Status 03/16/2025 70 >=60 mL/min/1.73m? Final Comment: Estimated Glomerular Filtration [...] RESULTS: POC done: Yes, See Lab Tab March 16, 2025 TREATMENT: N/A PERIPHERAL IV DATA: Inpatient - refer to LDA documentation RADIOLOGY DEPARTMENT: CT; Exam(s) Completed: Abdomen/Pelvis and PE Study SIGNATURE: Dimitri Strickland PATIENT NAME: Gracie Banuelos DATE: March 16, 2025 TIME: 1:46 AM Normal [facility] ARTERIAL BLOOD GASESon 03-16 Base deficit (BldA) [Moles/Vol] -5 mmol/L Low -2-0 [facility] Comment on above: Order Comment: Reggie fajardo Type: ARTERIAL BLOOD SPECIMEN Ordering Facility: [facility] Address: [address] [place] [address] Performed By: #### A LLBG #### [facility] CLIA [id number] [address] [place] [address] [place] Body temperature 97.52 [degF] Normal [facility] Comment on above: Order Comment: Reggie fajardo Type: ARTERIAL BLOOD SPECIMEN Ordering Facility: [facility] Address: [address] [place] [address] Performed By: #### A LLBG #### [facility] CLIA [id number] [address] [place] [address] [place] Calcium.ionized (Bld) [Mass/Vol] 1.20 mmol/L Normal 1.08-1.30 [facility] Comment on above: Order Comment: Reggie fajardo Type: ARTERIAL BLOOD SPECIMEN Ordering Facility: [facility] Address: [address] [place] [address] Performed By: #### A LLBG #### [facility] CLIA [id number] [address] [place] [address] [place] Carboxyhemoglobin (BldA) [Mass fraction] 0.3 % Normal 0.0-2.0 [facility] Comment on above: Order Comment: Reggie fajardo Type: ARTERIAL BLOOD SPECIMEN Ordering Facility: [facility] Address: [address] [place] [address] Result Comment: Carb oxyhemoglobin Reference Range for Smokers: 2.0-8.0% Performed By: #### A LLBG #### [facility] CLIA [id number] [address] [place] [address] [place] CO2 (Bld) [Partial pressure] 46 mm Hg Normal 36-46 [facility] Comment on above: Order Comment: Speci men Type: ARTERIAL BLOOD SPECIMEN Ordering Facility: [facility] Address: [address] [place] [address] Performed By: #### A LLBG #### [facility] CLIA [id number] [address] [place] [address] [place] CO2 adjusted to patient's actual temperature (Bld) [Partial pressure] Normal [facility] Comment on above: Order Comment: Speci men Type: ARTERIAL BLOOD SPECIMEN Ordering Facility: [facility] Address: [address] [place] [address] Performed By: #### A LLBG #### [facility] CLIA [id number] [address] [place] [address] [place] FIO2 100.0 % Normal [facility] Comment on above: Order Comment: Speci men Type: ARTERIAL BLOOD SPECIMEN Ordering Facility: [facility] Address: [address] [place] [address] Performed By: #### A LLBG #### [facility] CLIA [id number] [address] [place] [address] [place] Glucose [Mass/Vol] 187 mg/dL High 60-105 [facility] Comment on above: Order Comment: Speci men Type: ARTERIAL BLOOD SPECIMEN Ordering Facility: [facility] Address: [address] [place] [address] Performed By: #### A LLBG #### [facility] CLIA [id number] [address] [place] [address] [place] HCO3 (Bld) [Moles/Vol] 22 mmol/L Normal 22-26 [facility] Comment on above: Order Comment: Speci men Type: ARTERIAL BLOOD SPECIMEN Ordering Facility: [facility] Address: [address] [place] [address] Performed By: #### A LLBG #### [facility] CLIA [id number] [address] [place] [address] [place] Hemoglobin (Bld) [Mass/Vol] 11.4 g/dL Low 11.5-15.5 [facility] Comment on above: Order Comment: Speci men Type: ARTERIAL BLOOD SPECIMEN Ordering Facility: [facility] Address: [address] [place] [address] Performed By: #### A LLBG #### [facility] CLIA [id number] [address] [place] [address] [place] INHALED TIDAL VOLUME (ML) 420 Normal [facility] Comment on above: Order Comment: Speci men Type: ARTERIAL BLOOD SPECIMEN Ordering Facility: [facility] Address: [address] [place] [address] Performed By: #### A LLBG #### [facility] IA [id number] [address] [place] [address] [place] INVASIVE VENTILATOR MODE A/C PRVC or VC+ or APVcmv (PC-CMVa) Normal [facility] Comment on above: Order Comment: Speci men Type: ARTERIAL BLOOD SPECIMEN Ordering Facility: [facility] Address: [address] [place] [address] Performed By: #### A LLBG #### [facility] CLIA [id number] [address] [place] [address] [place] Lactate [Moles/Vol] 1.6 mmol/L Normal 0.5-2.2 [facility] Comment on above: Order Comment: Speci men Type: ARTERIAL BLOOD SPECIMEN Ordering Facility: [facility] Address: [address] [place] [address] Performed By: #### A LLBG #### [facility] CLIA [id number] [address] [place] [address] [place] Methemoglobin (Bld) [Mass fraction] 0.4 % Normal 0.0-1.5 [facility] Comment on above: Order Comment: Speci men Type: ARTERIAL BLOOD SPECIMEN Ordering Facility: [facility] Address: [address] [place] [address] Performed By: #### A LLBG #### [facility] CLIA [id number] [address] [place], [place] [address] [place] MINUTE VENTILATION 8 L/min Normal [facility] Comment on above: Order Comment: Speci men Type: ARTERIAL BLOOD SPECIMEN Ordering Facility: [facility] Address: [address] [place] [address] Performed By: #### A LLBG #### [facility] CLIA [id number] [address] [place] [address] [place] O2 THERAPY VENT=Ventilator Normal [facility] Comment on above: Order Comment: Speci men Type: ARTERIAL BLOOD SPECIMEN Ordering Facility: [facility] Address: [address] [place] [address] Performed By: #### A LLBG #### [facility] CLIA [id number] [address] [place], [place] [id number] [place] Oxygen (Bld) [Partial pressure] 92 mm Hg Normal 85-95 [facility] Comment on above: Order Comment: Speci men Type: ARTERIAL BLOOD SPECIMEN Ordering Facility: [facility] Address: [address] [place] [address] Performed By: #### A LLBG #### [facility] CLIA [id number] [address] [place], [place] [address] [place] Oxygen adjusted to patient's actual temperature (Bld) [Partial pressure] Normal [facility] Comment on above: Order Comment: Speci men Type: ARTERIAL BLOOD SPECIMEN Ordering Facility: [facility] Address: [address] [place] [address] Performed By: #### A LLBG #### [facility] CLIA [id number] [address] [place], [place] [address] [place] Oxyhemoglobin (BldA) [Mass fraction] 96 % Normal 95-98 [facility] Comment on above: Order Comment: Speci men Type: ARTERIAL BLOOD SPECIMEN Ordering Facility: [facility] Address: [address] [place] [address] Performed By: #### A LLBG #### [facility] CLIA [id number] [address] [place] [address] PEEP/CPAP 8 cmH2O Normal [facility] Comment on above: Order Comment: Speci men Type: ARTERIAL BLOOD SPECIMEN Ordering Facility: [facility] Address: [address] [place] [address] Performed By: #### A LLBG #### [facility] CLIA [id number] [address] [place] [address] [place] pH (Bld) 7.29 [pH] Low 7.35-7.45 [facility] Comment on above: Order Comment: Speci men Type: ARTERIAL BLOOD SPECIMEN Ordering Facility: [facility] Address: [address] [place] [address] Performed By: #### A LLBG #### [facility] CLIA [id number] [address] [place] [address] [place] pH adjusted to patient's actual temperature (Bld) Normal [facility] Comment on above: Order Comment: Speci men Type: ARTERIAL BLOOD SPECIMEN Ordering Facility: [facility] Address: [address] [place] [address] Performed By: #### A LLBG #### [facility] CLIA [id number] [address] [place] [address] [place] PO2 / FIO2 RATIO 92 mmHg Low >300 [facility] Comment on above: Order Comment: Speci men Type: ARTERIAL BLOOD SPECIMEN Ordering Facility: [facility] Address: [address] [place] [address] Performed By: #### A LLBG #### [facility] CLIA [id number] [address] [place] [address] [place] Potassium [Moles/Vol] 3.5 mmol/L Normal 2.5-6.0 [facility] Comment on above: Order Comment: Speci men Type: ARTERIAL BLOOD SPECIMEN Ordering Facility: [facility] Address: [address] [place] [address] Performed By: #### A LLBG #### [facility] CLIA [id number] [address] [place] [address] [place] SET VENTILATOR RESPIRATORY RATE (BPM) 20 BPM Normal [facility] Comment on above: Order Comment: Speci men Type: ARTERIAL BLOOD SPECIMEN Ordering Facility: [facility] Address: [address] [place] [address] Performed By: #### A LLBG #### [facility] CLIA [id number] [address] [place] [address] [place] Sodium [Moles/Vol] 140 mmol/L Normal 136-144 [facility] Comment on above: Order Comment: Speci men Type: ARTERIAL BLOOD SPECIMEN Ordering Facility: [facility] Address: [address] [place] [address] Performed By: #### A LLBG #### [facility] CLIA [id number] [address] [place] [address] [place] Bacteria Bld Culton 03-16-20 Bacteria identified Cx Nom (Bld) CULTURE, BLOOD: No growth 5 days Normal [facility] Comment on above: Performed By: #### 2 4323-8, 3040-3, 12477-3, 7-1, 2571-8 #### [facility] CLIA [id number] [address] [place] [address] [place] Bacteria identified Cx Nom (Bld) CULTURE, BLOOD: No growth 5 days Normal [facility] Comment on above: Performed By: #### 2 4323-8, 3040-3, 45836-6, 2777-1, 2571-8 #### [facility] CLIA [id number] [address] [place] [address] [place] Bacteria Spec Resp Culton Bacteria identified Respiratory culture Nom (Unsp spec) ORGANISM ID: 1 Moderate Streptococcus pneumoniae ORGANISM ID: 2 Rare Staphylococcus aureus ORGANISM ID: 3 Rare Streptococcus agalactiae (group b streptococcus) Susceptibility testing not performed on beta hemolytic streptococci due to predictable susceptibility to penicillin and other beta lactams. For testing, call Microbiology within 72 hours. GRAM STAIN: Many Polymorphonuclear leukocytes Few Epithelial cells Many Gram negative coccobacilli Few Gram positive cocci ORGANISM ID: 1 (STREPTOCOCCUS PNEUMONIAE) ANTIBIOTIC INTERPRETATION AGNIESZKA STATUS REFERENCE RANGE Penicillin (oral) S <=0.28958 F Susceptible <=0.06 , Intermediate >.06 , Resistant >1 Penicillin Non-Meningitis S <=0.26048 F Susceptible <=2 , Intermediate >2 , Resistant >=8 Penicillin Meningitis S <=0.39405 F Susceptible <=0.06 , Resistant >.06 Ceftriaxone Meningitis S <=0.0625 F Susceptible <=0.5 , Intermediate >.5 , Resistant >=2 Ceftriaxone Non-Meningitis S <=0.0625 F Susceptible <=1 , Intermediate >1 , Resistant >2 Cefepime S <=0.0625 F Susceptible <=1 , Intermediate >1 , Resistant >2 Meropenem S <=0.0625 F Susceptible <=0.25 , Intermediate >.25 , Resistant >.5 Erythromycin S <=0.47559 F Susceptible <=0.25 , Intermediate >.25 , Resistant >=1 Trimeth sulfameth S <=0.25 F Vancomycin S <=0.25 F Susceptible <=1 , Nonsusceptible >1 Levofloxacin S <=0.5 F Susceptible <=2 , Intermediate >2 , Resistant >4 Tetracycline S <=0.25 F Susceptible <=1 , Intermediate >1 , Resistant >2 ORGANISM ID: 2 (STAPHYLOCOCCUS AUREUS) ANTIBIOTIC INTERPRETATION AGNIESZKA STATUS REFERENCE RANGE Oxacillin S 0.5 F Susceptible <=2 , Intermediate >2 , Resistant >2 Oxacillin-susceptible staphylococci are susceptible to other penicilllinase-stable penicillins, beta-lactam/beta-lactam ase inhibitor combinations, anti-staphylococcal cephems, and carbapenems. Gentamicin S <=2 F Susceptible <=4 , Intermediate >4 , Resistant >8 Erythromycin R >4 F Susceptible <=0.5 , Intermediate >.5 , Resistant >4 Clindamycin R <=0.5 F This isolate is presumed to be resistant based on detection of inducible Clindamycin resistance. Clindamycin may still be effective in some patients. Trimeth sulfameth S <=1 F Vancomycin S 1 F Susceptible <=2 , Intermediate >2 , Resistant >=16 Rifampin S <=0.5 F Susceptible <=1 , Intermediate >1 , Resistant >2 Rifampin should not be used alone for antimicrobial therapy. Doxycycline S <=0.5 F Susceptible <=4 , Intermediate >4 , Resistant >8 Abnormal [facility] Comment on above: Performed By: #### 3 4528-0, 69962-3 #### [facility] CLIA [id number] [address] [place] [address] [place] Basic Metabolic Profile (BMP )on 03-16-2025 BUN Normal - [facility] Comment on above: Result Comment: Canc elled via OM: Order cancelled - Patient discharged Performed By: #### L 500.2500, L100.0100 ####[facility] [address] [place], [address] BUN/CRE Normal 10-20 [facility] Comment on above: Result Comment: Canc elled via OM: Order cancelled - Patient discharged Performed By: #### L 500.2500, L100.0100 ####[facility] [address] [place], [address] Calcium Normal 7.6-11.0 [facility] Comment on above: Result Comment: Canc elled via OM: Order cancelled - Patient discharged Performed By: #### L 500.2500, L100.0100 ####[facility] [address] [place], [address] CL Normal 98-108 [facility] Comment on above: Result Comment: Canc elled via OM: Order cancelled - Patient discharged Performed By: #### L 500.2500, L100.0100 ####[facility] [address] [place], [address] CO2 Normal 21.0-32.0 [facility] Comment on above: Result Comment: Canc elled via OM: Order cancelled - Patient discharged Performed By: #### L 500.2500, L100.0100 ####[facility] [address] [place], [address] CREAT,SERUM Normal 0.70-1.20 [facility] Comment on above: Result Comment: Canc elled via OM: Order cancelled - Patient discharged Performed By: #### L 500.2500, L100.0100 ####[facility] [address] [place], [address] eGFR Normal >60 [facility] Comment on above: Result Comment: Canc elled via OM: Order cancelled - Patient discharged Performed By: #### L 500.2500, L100.0100 ####[facility] [address] [place], [address] GAP Normal 5-15 [facility] Comment on above: Result Comment: Canc elled via OM: Order cancelled - Patient discharged Performed By: #### L 500.2500, L100.0100 ####[facility] [address] [place], [address] GLU Normal 70-99 [facility] Comment on above: Result Comment: Canc elled via OM: Order cancelled - Patient discharged Performed By: #### L 500.2500, L100.0100 ####[facility] [address] [place], [address] Potassium Normal 3.3-5.1 [facility] Comment on above: Result Comment: Canc elled via OM: Order cancelled - Patient discharged Performed By: #### L 500.2500, L100.0100 ####[facility] [address] [place], [address] Basic Metabolic Profile (BMP) Normal 133-145 [facility] Comment on above: Result Comment: Canc elled via OM: Order cancelled - Patient discharged Performed By: #### L 500.2500, L100.0100 ####[facility] [address] [place], [address] CBC W/Diff, Automatedon - Absolute Neut Normal 2.0-7.7 [facility] Comment on above: Result Comment: Canc elled via OM: Order cancelled - Patient discharged Performed By: #### L 500.2500, L100.0100 ####[facility] [address] [place], [address] HCT Normal 37-47 [facility] Comment on above: Result Comment: Canc elled via OM: Order cancelled - Patient discharged Performed By: #### L 500.2500, L100.0100 ####[facility] [address] [place], [address] HGB Normal 12.0-15.0 [facility] Comment on above: Result Comment: Canc elled via OM: Order cancelled - Patient discharged Performed By: #### L 500.2500, L100.0100 ####[facility] [address] [place], [address] MCH Normal 27.0-32.0 [facility] Comment on above: Result Comment: Canc elled via OM: Order cancelled - Patient discharged Performed By: #### L 500.2500, L100.0100 ####[facility] [address] [place], [address] MCHC Normal 32-36 [facility] Comment on above: Result Comment: Canc elled via OM: Order cancelled - Patient discharged Performed By: #### L 500.2500, L100.0100 ####[facility] [address] [place], [address] MCV Normal 81-99 [facility] Comment on above: Result Comment: Canc elled via OM: Order cancelled - Patient discharged Performed By: #### L 500.2500, L100.0100 ####[facility] [address] [place], [address] NEUT% Normal 47-70 [facility] Comment on above: Result Comment: Canc elled via OM: Order cancelled - Patient discharged Performed By: #### L 500.2500, L100.0100 ####[facility] [address] [place], [address] PLT Normal 150-450 [facility] Comment on above: Result Comment: Canc elled via OM: Order cancelled - Patient discharged Performed By: #### L 500.2500, L100.0100 ####[facility] [address] [place], [address] RBC Normal 4.2-5.4 [facility] Comment on above: Result Comment: Canc elled via OM: Order cancelled - Patient discharged Performed By: #### L 500.2500, L100.0100 ####[facility] [address] [place], [address] RDW CV Normal 11.6-14.6 [facility] Comment on above: Result Comment: Canc elled via OM: Order cancelled - Patient discharged Performed By: #### L 500.2500, L100.0100 ####[facility] [address] [place], [address] RDW SD Normal 35.1-43.9 [facility] Comment on above: Result Comment: Canc elled via OM: Order cancelled - Patient discharged Performed By: #### L 500.2500, L100.0100 ####[facility] [address] [place], [address] WBC Normal 4.4-11.0 [facility] Comment on above: Result Comment: Canc elled via OM: Order cancelled - Patient discharged Performed By: #### L 500.2500, L100.0100 ####[facility] [address] [place], [address] CBC panel Auto (Bld)on 03-16 Erythrocyte distribution width (RBC) [Ratio] 14.6 % Normal 11.5-15.0 [facility] Comment on above: Order Comment: Reggie fajardo Type: BLOOD SPECIMEN Ordering Facility: [facility] Address: [address] [place] [address] Performed By: #### 5 8410-2 #### [facility] CLIA [id number] [address] [place] [address] [place] Hematocrit (Bld) [Volume fraction] 32.8 % Low 36.0-46.0 [facility] Comment on above: Order Comment: Reggie fajardo Type: BLOOD SPECIMEN Ordering Facility: [facility] Address: [address] [place] [address] Performed By: #### 5 8410-2 #### [facility] CLIA [id number] [address] [place] [address] [place] Hemoglobin (Bld) [Mass/Vol] 10.1 g/dL Low 11.5-15.5 [facility] Comment on above: Order Comment: Speci men Type: BLOOD SPECIMEN Ordering Facility: [facility] Address: [address] [place] [address] Performed By: #### 5 8410-2 #### [facility] CLIA [id number] [address] [place] [address] [place] MCH (RBC) [Entitic mass] 27.2 pg Normal 26.0-34.0 [facility] Comment on above: Order Comment: Speci men Type: BLOOD SPECIMEN Ordering Facility: [facility] Address: [address] [place] [address] Performed By: #### 5 8410-2 #### [facility] CLIA [id number] [address] [place] [address] [place] MCHC (RBC) [Mass/Vol] 30.8 g/dL Normal 30.5-36.0 [facility] Comment on above: Order Comment: Speci men Type: BLOOD SPECIMEN Ordering Facility: [facility] Address: [address] [place] [address] Performed By: #### 5 8410-2 #### [facility] CLIA [id number] [address] [place] [address] [place] MCV (RBC) [Entitic vol] 88.2 fL Normal 80.0-100.0 [facility] Comment on above: Order Comment: Speci men Type: BLOOD SPECIMEN Ordering Facility: [facility] Address: [address] [place] [address] Performed By: #### 5 8410-2 #### [facility] CLIA [id number] [address] [place] [address] [place] Nucleated RBC (Bld) [#/Vol] 10*3/uL Normal <0.01 [facility] Comment on above: Order Comment: Speci men Type: BLOOD SPECIMEN Ordering Facility: [facility] Address: [address] [place] [address] Performed By: #### 5 8410-2 #### [facility] CLIA [id number] [address] [place] [address] [place] Platelet mean volume (Bld) [Entitic vol] 10.0 fL Normal 9.0-12.7 [facility] Comment on above: Order Comment: Speci men Type: BLOOD SPECIMEN Ordering Facility: [facility] Address: [address] [place] [address] Performed By: #### 5 8410-2 #### [facility] CLIA [id number] [address] [place] [address] [place] Platelets (Bld) [#/Vol] 337 10*3/uL Normal 150-400 [facility] Comment on above: Order Comment: Speci men Type: BLOOD SPECIMEN Ordering Facility: [facility] Address: [address] [place] [address] Performed By: #### 5 8410-2 #### [facility] CLIA [id number] [address] [place] [address] [place] RBC (Bld) [#/Vol] 3.72 10*6/uL Low 3.90-5.20 [facility] Comment on above: Order Comment: Speci men Type: BLOOD SPECIMEN Ordering Facility: [facility] Address: [address] [place] [address] Performed By: #### 5 8410-2 #### [facility] CLIA [id number] [address] [place] [address] [place] WBC (Bld) [#/Vol] 27.49 10*3/uL High 3.70-11.00 [facility] Comment on above: Order Comment: Speci men Type: BLOOD SPECIMEN Ordering Facility: [facility] Address: [address] [place] [address] Performed By: #### 5 8410-2 #### [facility] CLIA [id number] [facility] [address] STATES OF [facility] Matteo 03-16-2025 CNPN Telephone (INTMWS) GRACIE BANUELOS ([id number]) 1965 F Date Time Provider Department 03/16/25 MISBAH ELKINS INTMWS During your visit today, we recorded the following information about you: Eva Martines RN 03/16/2025 1:22 PM Signed Patient's daughter calls and wanted provider aware that patient is currently at [facility] on a Ventilator. Daughter apologizes for forgetting to cancel appointment yesterday. Daughter states that mother was being put on a ventilator at that time. Eva Martines RN Allergies As of Date: 03/16/2025 Noted Allergy Reaction BACTRIM (SULFAMETHOXAZOLE-TRIME TH*11/28/2022 4 - Hives HYDROCODONE 08/02/2020 9 - Itching PENICILLINS 07/07/2006 14 - Other: See Comments Comments: hives VALIUM (DIAZEPAM) 11/02/2013 14 - Other: See Comments Comments: cross reaction with alcohol addiction Date Reviewed: 03/16/2025 Reviewed by: Maksim Mendez, SARWAT - Fully Assessed Reason for Visit: Patient Update [1234] Prescriptions as of 03/16/2025 - gabapentin (NEURONTIN) 300 mg capsule Take [...] Oximetry - COMPOUNDED PRESCRIPTION nebulizer supplies (tubing) Facility-Administered Medications as of 03/16/2025 - acetaminophen 650 mg CUP (TYLENOL) - cefepime 2 g in D5W 100 mL Vial-Bag (MAXIPIME) - sodium chloride 3% solution 3 mL INHALATION ONLY - mupirocin 2 % 0.5 g nasal ointment (BACTROBAN) - budesonide 0.5 mg/2 mL 0.5 mg (PULMICORT) - dextrose 40 % 15 g - glucagon 1 mg injection - dextrose 10% iv bolus - insulin lispro injection (rapid acting) (ADMElog) - iv contrast (radiology procedure) - iv contrast (radiology procedure) - heparin 5,000 Units injection - NaCl 0.9% iv flush bag - fentaNYL 20 mcg/mL iv infusion in NaCl 0.9% 100 mL (SUBLIMAZE) - ipratropium-albuterol 3 mL nebulizer solution (DUONEB) - pantoprazole 40 mg injection (PROTONIX) - ondansetron 4 mg tab(s) (ZOFRAN) - ondansetron (PF) 4 mg injection (ZOFRAN) - NORepinephrine iv infusion 16 mg in D5W 250 mL (LEVOPHED) - propofol infusion (DIPRIVAN) Problem List As Of Date 03/16/2025 Noted Resolved TOBACCO USE DISORDER [F17.200] 06/29/2008 Anxiety state [F41.1] 10/19/2008 Hyperlipidemia [E78.5] 01/31/2009 Essential hypertension, benign [I10] 09/04/2009 Gastroesophageal reflux disease [K21.9] 12/26/2009 01/10/2021 Acute gastritis without mention of hemorrhage [*10/03/2010 01/03/2015 Pancreatitis chronic 05/26/2011 08/27/2017 COPD without exacerbation (HCC) [J44.9] 05/25/2012 Lumbar disc disease with radiculopathy [M51.16] 06/18/2012 Postmenopausal bleeding [N95.0] 12/07/2012 Ovarian cyst, right [N83.201] 12/27/2012 Alcoholic hepatitis without ascites [K70.10] 11/16/2013 Urine, incontinence, stress female [N39.3] (more content not included)... Normal [facility] CONSULT PROGon 03-16-2025 CONSULT PROG HNO ID: [id number] Author: DANIEL REYNA RPh Service: Pharmacy Author Type: Pharmacist Type: Consult Progress Note Filed: 03/16/2025 09:29 Note Text: PHARMACY VANCOMYCIN DOSING NOTE Patient Name: Gracie Banuelos Admission Date: 03/15/2025 Date of Consult: 03/16/2025 Time of Consult: 9:29 AM RECOMMENDATIONS/PLAN: Pharmacy consulted for vancomycin dosing for Gracie Banuelos, a 59 year old female. Vancomycin therapy has been discontinued. Vancomycin level(s) have been discontinued: Yes. The pharmacy vancomycin dosing service will sign off. Thank you for allowing us to participate in this patient's care. Please contact pharmacy if there are questions. Daniel Reyna [facility] CONSULT PROG HNO ID: [id number] Author: JOSE GUADALUPE GUZMAN [facility] Service: Pharmacy Author Type: Pharmacist Type: Consult Progress Note Filed: 03/16/2025 01:56 Note Text: PHARMACY VANCOMYCIN DOSING NOTE Patient Name: Gracie Banuelos Admission Date: 03/15/2025 Date of Consult: 03/16/2025 Time of Consult: 1:55 AM Indication: Intra-abdominal infection Goal Range: 10-20 mcg/mL RECOMMENDATIONS/PLAN: Pharmacy consulted for vancomycin dosing for Gracie Banuelos, a 59 year old female. 1. Patient is currently ordered Vancomycin 1 g IV q12h. Today is day two of therapy. 2. No vancomycin level has been drawn for this dosing regimen. 3. The present dose of vancomycin is the recommended dosage for this patient at this time. Continue therapy as prescribed. 4. The next vancomycin level has been ordered for 03/17 at 1000. (Completed) We will follow patient renal function, vancomycin levels and doses with you during the course of therapy. Additional recommendations will appear in follow up notes. If you have any questions, please contact pharmacy at [phone]. Age: [age] year old Allergies: ALLERGIES Allergen Reactions Bactrim [Sulfametho* Hives Hydrocodone Itching Penicillins Other: See Comments hives Valium [Diazepam] Other: See Comments cross reaction with alcohol addiction Last 3 Encounter Wt Readings: Date: Wt: 03/15/2025 63.8 kg (140 lb 10.5 oz) 03/10/2025 59 kg (130 lb) 01/13/2025 62.6 kg (138 lb) Last 1 Encounter Ht Readings: Date: Ht: 03/10/2025 160 cm (5' 3) CrCl: 57.2 mL/min No data recorded. - Current Labs BUN (mg/dL) Date Value 03/16/2025 12 12/19/2024 8 08/12/2024 15 Creatinine (mg/dL) Date Value 03/16/2025 0.93 12/19/2024 0.81 08/12/2024 0.82 WBC (k/uL) Date Value 03/16/2025 27.49 (H) 12/19/2024 25.58 (H) 08/05/2024 14.21 (H) Vancomycin Levels: No results found for: FELTON Guzman, [facility] CT ABD/PEL W IVCONon 025 CT ABD/PEL W IVCON * * *Final Report* * * DATE OF EXAM: Mar 16 2025 1:50AM [facility] 0530 - CT ABD/PEL W IVCON / PROCEDURE REASON: Abdominal abscess/infection suspected * * * * Physician Interpretation * * * * EXAMINATION: CT ABDOMEN AND PELVIS WITH IV CONTRAST CLINICAL HISTORY: Abdominal abscess/infection suspected. Recent pancreas procedure. TECHNIQUE: CT of the abdomen and pelvis was performed using standard technique, scanning from just above the dome of the diaphragm to the symphysis pubis. MQ: CTAP_3 Contrast: IV: 94 ml of Omnipaque 350 : ml of CT Radiation dose: Integrated Dose-length product (DLP) for this visit = 1181.11 mGy*cm. CT Dose Reduction Employed: Automated exposure control(AEC) and iterative recon COMPARISON: CT abdomen/pelvis 08/23/2024. RESULT: Lines/tubes: Nasogastric tube tip projects within the gastric fundus. Pancreatic duct stent as detailed below. Frankel catheter within the urinary bladder. Liver: Subcentimeter hypodense lesion of the right hepatic lobe is too small to characterize. No other abnormality. Biliary: No bile duct dilation. Gallbladder is absent. Spleen: No mass. No splenomegaly. Pancreas: Pancreatic duct placement with pigtail portion terminating within the duodenum. Mild peripancreatic and interstitial pancreatic edema at the pancreatic head. Redemonstrated coarse calcifications within the pancreatic head and uncinate process. Adrenals: No mass. Kidneys: No hydronephrosis. No urinary calculi. Atrophic right kidney. Simple attenuation left renal cyst. GI tract: No dilation or wall thickening. Lymph nodes: No abdominal or pelvic lymphadenopathy. Mesentery/Peritoneum: No ascites or mass. Retroperitoneum: No mass. Vasculature: Aortoiliac atherosclerotic disease without aneurysm. Aorta and branch vessels are patent. Portal venous system is patent. Opacified hepatic veins and IVC appear patent. Pelvis: No mass, ascites or fluid collection. Bones/Soft Tissues: No acute or aggressive osseous lesion. Lower thorax: See separately dictated CT chest report. Localizer images: No additional findings. IMPRESSION: * Mild peripancreatic and interstitial edema at the pancreatic head, which could reflect acute on chronic pancreatitis. * Interval placement of pancreatic duct stent. * No other acute abdominopelvic process. Specialist Managers: [employer] Transcribe Date/Time: Mar 16 2025 4:01A Dictated by : TRISH BAHENA MD This examination was interpreted and the report reviewed and electronically signed by: TRISH BAHENA MD on Mar 16 2025 4:21AM EST [id number] Normal [facility] CTA CHEST (NON GATED) W IVCO N PEon 03-16-2025 CTA CHEST (NON GATED) W IVCON PE * * *Final Report* * * DATE OF EXAM: Mar 16 2025 1:50AM [facility] 0564 - CTA CHEST (NON GATED) W IVCON PE / PROCEDURE REASON: Pulmonary embolism (PE) suspected, high prob * * * * Physician Interpretation * * * * EXAMINATION: CHEST CTA (NON GATED) WITH CONTRAST (PULMONARY EMBOLISM PROTOCOL) Clinical History: Pulmonary embolism suspected. Patient is vented. Technique: Spiral CT acquisition of the chest from the thoracic inlet to the upper abdomen following IV contrast. Axial 1 and 3 mm thick slices plus coronal and sagittal reformatted images. MQ: CTCP_5 Contrast: 94 mL Omnipaque [address] Radiation dose: Integrated Dose-length product (DLP) for this visit = 1181.11 mGy*cm CT Dose Reduction Employed: Automated exposure control(AEC) and iterative recon CTA: Post-processed images (Maximum intensity Projection (MIP), Volume-rendered (VR), or Surface shaded display images (SSD) were created, reviewed and archived. Comparison: No relevant prior studies available. RESULT: Limitations: None. Evaluation for thromboembolic disease: - Right heart chambers: No thromboembolic disease. - Main pulmonary arteries: No thromboembolic disease. - Lobar pulmonary arteries: No thromboembolic disease. - Segmental pulmonary arteries: No thromboembolic disease. - Subsegmental pulmonary arteries: No thromboembolic disease. - Additional pulmonary artery findings: The main pulmonary artery is normal in caliber. Lines, tubes, and devices: Endotracheal and enteric tubes. Lung parenchyma and airways: Diffuse emphysematous changes. Patchy dependent lung opacity in the lateral right middle lobe and right lower lobe, diffuse consolidative opacity at the left lower lobe, small amount opacity in the bronchus to the left superior segment and possibly subsegmental bronchi bilaterally. Bronchi appear otherwise patent. Pleural space: No pleural effusion. No pleural thickening. Lower neck, lymph nodes, and mediastinum: The imaged thyroid gland is normal. No lymphadenopathy in the supraclavicular, axillary, mediastinal, or hilar regions. Heart, pericardium, and thoracic vessels: The thoracic aorta is normal in caliber. The cardiac chambers are normal in size. No coronary artery atherosclerotic calcifications are noted, although the study is not optimized for coronary assessment. No pericardial effusion or thickening. Bones and soft tissues: No destructive bone lesion. Chest wall is unremarkable. Localizer images: No additional findings. IMPRESSION: 1. No CT evidence of pulmonary thromboembolism. 2. Consolidative opacity of the LEFT lower lobe with small amount of opacity in the bronchus to the superior segment of the LEFT lower lobe and possibly subsegmental bronchi bilaterally. 3. Patchy dependent lung opacity in the lateral RIGHT middle lobe and RIGHT lower lobe. Recommend follow-up to resolution, underlying lung nodules/mass not excluded. Specialist Managers: [employer] Transcribe Date/Time: Mar 16 2025 3:49A Dictated by : SUELLEN SÁNCHEZ MD This examination was interpreted and the report reviewed and electronically signed by: SUELLEN SÁNCHEZ MD on Mar 16 2025 4:00AM EST [id number] Normal [facility] Comprehensive metabolic 2000 panelon 03-16-2025 Albumin [Mass/Vol] 2.7 g/dL Low 3.2-5.0 [facility] Comment on above: Order Comment: Speci men Type: BLOOD SPECIMEN Ordering Facility: [facility] Address: [address] [place], [place] [address] Performed By: #### 2 4323-8, 3040-3, 05629-0, 2777-1, 2571-8 #### [facility] CLIA [id number] [address] [place] [address] [place] ALP [Catalytic activity/Vol] 143 U/L High 45-117 [facility] Comment on above: Order Comment: Speci men Type: BLOOD SPECIMEN Ordering Facility: [facility] Address: [address] [place] [address] Performed By: #### 2 4323-8, 3040-3, 80382-4, 2777-1, 2571-8 #### [facility] CLIA [id number] [address] [place], [place] [address] [place] ALT [Catalytic activity/Vol] 17 U/L Normal 13-61 [facility] Comment on above: Order Comment: Speci men Type: BLOOD SPECIMEN Ordering Facility: [facility] Address: [address] [place] [address] Result Comment: Resu lts may be falsely depressed after the administration of Sulfasalazine and/or Sulfapyridine. Performed By: #### 2 4323-8, 3040-3, 47092-7, 277-1, 257-8 #### [facility] CLIA [id number] [address] [place], [place] [address] [place] Anion gap [Moles/Vol] 18 mmol/L High 5-16 [facility] Comment on above: Order Comment: Speci men Type: BLOOD SPECIMEN Ordering Facility: [facility] Address: [address] [place] [address] Performed By: #### 2 4323-8, 3040-3, 01339-0, 277-1, 2571-8 #### [facility] CLIA [id number] [address] [place], [place] [address] [place] AST [Catalytic activity/Vol] 13 U/L Normal 8-34 [facility] Comment on above: Order Comment: Speci men Type: BLOOD SPECIMEN Ordering Facility: [facility] Address: [address] [place] [address] Result Comment: Resu lts may be falsely depressed after the administration of Sulfasalazine and/or Sulfapyridine. Performed By: #### 2 4323-8, 3040-3, 78631-1, 2777-1, 257-8 #### [facility] CLIA [id number] [address] [place], [place] [address] [place] Bilirubin [Mass/Vol] 0.3 mg/dL Normal 0.2-1.0 [facility] Comment on above: Order Comment: Speci men Type: BLOOD SPECIMEN Ordering Facility: [facility] Address: [address] [place] [address] Performed By: #### 2 4323-8, 3040-3, 86303-5, 2777-1, 257-8 #### [facility] CLIA [id number] [address] [place], [place] [address] [place] Calcium [Mass/Vol] 9.3 mg/dL Normal 8.5-10.5 [facility] Comment on above: Order Comment: Speci men Type: BLOOD SPECIMEN Ordering Facility: [facility] Address: [address] [place], [place] [address] Performed By: #### 2 4323-8, 3040-3, 27120-4, 277-1, 257-8 #### [facility] CLIA [id number] [address] [place], [place] [address] [place] Chloride [Moles/Vol] 99 mmol/L Normal 98-107 [facility] Comment on above: Order Comment: Speci men Type: BLOOD SPECIMEN Ordering Facility: [facility] Address: [address] [place] [address] Performed By: #### 2 4323-8, 3040-3, 66818-5, 2777-1, 257-8 #### [facility] CLIA [id number] [address] [place], [place] [address] [place] CO2 [Moles/Vol] 23 mmol/L Normal 21-32 [facility] Comment on above: Order Comment: Speci men Type: BLOOD SPECIMEN Ordering Facility: [facility] Address: [address] [place], [place] [address] Performed By: #### 2 4323-8, 3040-3, 01467-0, 2776-1, 2570-8 #### [facility] CLIA [id number] [address] [place], [place] [address] [place] Creatinine [Mass/Vol] 0.93 mg/dL Normal 0.51-0.95 [facility] Comment on above: Order Comment: Specmiya fajardo Type: BLOOD SPECIMEN Ordering Facility: [facility] Address: [address] [place] [address] Result Comment: Gretta ents receiving either N-Acetylcysteine (NAC) or Metamizole prior to venipuncture, may have falsely depressed results. Performed By: #### 2 4323-8, 3040-3, 94570-4, 2776-, 8 #### [facility] CLIA [id number] [address] [place] [address] [place] [facility] Creatinine and Glomerular filtration rate.predicted panel (S/P/Bld) 70 mL/min/1.73m??? Normal >=60 [facility] Comment on above: Order Comment: Kettyi tana Type: BLOOD SPECIMEN Ordering Facility: [facility] Address: [address] [place] [address] Result Comment: Pavan mated Glomerular Filtration Rate [...] actual GFR. Performed By: #### 2 4323-8, 3040-3, 94924-6, 2776-1, 2570-8 #### [facility] CLIA [id number] [address] [place], [place] [address] [place] Glucose [Mass/Vol] 175 mg/dL High 70-100 [facility] Comment on above: Order Comment: Reggie fajardo Type: BLOOD SPECIMEN Ordering Facility: [facility] Address: [address] [place] [address] Result Comment: The [place] [employer] (ADA) provides guidance for cutoff [...] Standards of Medical Care in Diabetes 2016, [place] [employer]. Diabetes Care. 2016.39(Suppl 1). Results may be falsely elevated after the administration of Sulfapyridine. Results may be falsely depressed after the administration of Sulfasalazine. Performed By: #### 2 4323-8, 3040-3, 76083-6, 2776-1, 2570-8 #### [facility] CLIA [id number] [address] [place], [place] [address] [place] Potassium [Moles/Vol] 3.9 mmol/L Normal 3.5-5.1 [facility] Comment on above: Order Comment: Speci men Type: BLOOD SPECIMEN Ordering Facility: [facility] Address: [address] [place] [address] Performed By: #### 2 4323-8, 3040-3, 70737-9, 2776-1, 257-8 #### [facility] CLIA [id number] [address] [place] [address] [place] Protein [Mass/Vol] 6.6 g/dL Normal 6.0-8.5 [facility] Comment on above: Order Comment: Speci men Type: BLOOD SPECIMEN Ordering Facility: [facility] Address: [address] [place], [place] [address] Performed By: #### 2 4323-8, 3040-3, 40227-2, 7-1, 257-8 #### [facility] CLIA [id number] [address] [place] [address] [place] Sodium [Moles/Vol] 140 mmol/L Normal 136-145 [facility] Comment on above: Order Comment: Speci men Type: BLOOD SPECIMEN Ordering Facility: [facility] Address: [address] [place] [address] Performed By: #### 2 4323-8, 3040-3, 69295-5, 2777-1, 2571-8 #### [facility] CLIA [id number] [address] [place], [place] [address] [place] Urea nitrogen [Mass/Vol] 12 mg/dL Normal 7- [facility] Comment on above: Order Comment: Speci men Type: BLOOD SPECIMEN Ordering Facility: [facility] Address: [address] [place] [address] Performed By: #### 2 4323-8, 3040-3, 69269-0, 2777-1, 2571-8 #### [facility] CLIA [id number] [address] [place], [place] [address] [place] Gas and Carbon monoxide pane l (BldV)on 03-16-2025 Base excess Calc (BldV) [Moles/Vol] 1 mmol/L Normal 0-2 [facility] Comment on above: Order Comment: Speci men Type: BLOOD SPECIMEN Ordering Facility: [facility] Address: [address] [place] [address] Performed By: #### 5 8410-2 #### [facility] CLIA [id number] [address] [place], [place] [address] [place] Body temperature 100.94 [degF] Normal [facility] Comment on above: Order Comment: Speci men Type: BLOOD SPECIMEN Ordering Facility: [facility] Address: [address] [place] [address] Performed By: #### 5 8410-2 #### [facility] CLIA [id number] [address] [place], [place] [address] [place] Calcium.ionized (Bld) [Mass/Vol] 1.14 mmol/L Normal 1.08-1.30 [facility] Comment on above: Order Comment: Speci men Type: BLOOD SPECIMEN Ordering Facility: [facility] Address: [address] [place] [address] Performed By: #### 5 8410-2 #### [facility] CLIA [id number] [address] [place] [address] [place] Carboxyhemoglobin (BldV) [Mass fraction] 1.0 % Normal 0.0-2.0 [facility] Comment on above: Order Comment: Speci men Type: BLOOD SPECIMEN Ordering Facility: [facility] Address: [address] [place] [address] Result Comment: Carb oxyhemoglobin Reference Range for Smokers: 2.0-8.0% Performed By: #### 5 8410-2 #### [facility] CLIA [id number] [address] [place] [address] [place] CO2 (BldV) [Partial pressure] 47 mm[Hg] Normal 42-55 [facility] Comment on above: Order Comment: Speci men Type: BLOOD SPECIMEN Ordering Facility: [facility] Address: [address] [place] [address] Performed By: #### 5 8410-2 #### [facility] CLIA [id number] [address] [place] [address] [place] CO2 adjusted to patient's actual temperature (BldV) [Partial pressure] Normal [facility] Comment on above: Order Comment: Speci men Type: BLOOD SPECIMEN Ordering Facility: [facility] Address: [address] [place] [address] Performed By: #### 5 8410-2 #### [facility] CLIA [id number] [address] [place] [address] [place] Glucose [Mass/Vol] 190 mg/dL High 60-105 [facility] Comment on above: Order Comment: Speci men Type: BLOOD SPECIMEN Ordering Facility: [facility] Address: [address] [place] [address] Performed By: #### 5 8410-2 #### [facility] CLIA [id number] [address] [place] [address] [place] HCO3 (Bld) [Moles/Vol] 26 mmol/L Normal 24-28 [facility] Comment on above: Order Comment: Speci men Type: BLOOD SPECIMEN Ordering Facility: [facility] Address: [address] [place] [address] Performed By: #### 5 8410-2 #### [facility] CLIA [id number] [address] [place] [address] [place] Hemoglobin (Bld) [Mass/Vol] 11.5 g/dL Normal 11.5-15.5 [facility] Comment on above: Order Comment: Speci men Type: BLOOD SPECIMEN Ordering Facility: [facility] Address: [address] [place] [address] Performed By: #### 5 8410-2 #### [facility] CLIA [id number] [address] [place] [address] [place] Lactate [Moles/Vol] 2.5 mmol/L High 0.5-2.2 [facility] Comment on above: Order Comment: Speci men Type: BLOOD SPECIMEN Ordering Facility: [facility] Address: [address] [place] [address] Performed By: #### 5 8410-2 #### [facility] CLIA [id number] [address] [place] [address] [place] Methemoglobin (Bld) [Mass fraction] 0.1 % Normal 0.0-1.5 [facility] Comment on above: Order Comment: Speci men Type: BLOOD SPECIMEN Ordering Facility: [facility] Address: [address] [place] [address] Performed By: #### 5 8410-2 #### [facility] CLIA [id number] [address] [place] [address] [place] O2 THERAPY VENT=Ventilator Normal [facility] Comment on above: Order Comment: Speci men Type: BLOOD SPECIMEN Ordering Facility: [facility] Address: [address] [place] [address] Performed By: #### 5 8410-2 #### [facility] CLIA [id number] [address] [place], [place] [address] [place] Oxygen (BldV) [Partial pressure] 33 mm[Hg] Low 35-45 [facility] Comment on above: Order Comment: Speci men Type: BLOOD SPECIMEN Ordering Facility: [facility] Address: [address] [place] [address] Performed By: #### 5 8410-2 #### [facility] CLIA [id number] [address] [place] [address] [place] Oxygen adjusted to patient's actual temperature (BldV) [Partial pressure] Normal [facility] Comment on above: Order Comment: Speci men Type: BLOOD SPECIMEN Ordering Facility: [facility] Address: [address] [place] [address] Performed By: #### 5 8410-2 #### [facility] CLIA [id number] [address] [place] [address] [place] Oxyhemoglobin (BldV) [Mass fraction] 60 % Normal 4-98 [facility] Comment on above: Order Comment: Speci men Type: BLOOD SPECIMEN Ordering Facility: [facility] Address: [address] [place] [address] Performed By: #### 5 8410-2 #### [facility] CLIA [id number] [address] [place], [place] [address] [place] pH (BldV) 7.37 [pH] Normal 7.32-7.42 [facility] Comment on above: Order Comment: Speci men Type: BLOOD SPECIMEN Ordering Facility: [facility] Address: [address] [place] [address] Performed By: #### 5 8410-2 #### [facility] CLIA [id number] [address] [place] [address] [place] pH adjusted to patient's actual temperature (BldV) [facility] Comment on above: Order Comment: Speci men Type: BLOOD SPECIMEN Ordering Facility: [facility] Address: [address] [place] [address] Performed By: #### 5 8410-2 #### [facility] CLIA [id number] [address] [place], [place] [address] [place] Potassium [Moles/Vol] 3.5 mmol/L Normal 2.5-6.0 [facility] Comment on above: Order Comment: Speci men Type: BLOOD SPECIMEN Ordering Facility: [facility] Address: [address] [place] [address] Performed By: #### 5 8410-2 #### [facility] CLIA [id number] [address] [place] [address] [place] Sodium [Moles/Vol] 139 mmol/L Normal 136-144 [facility] Comment on above: Order Comment: Speci men Type: BLOOD SPECIMEN Ordering Facility: [facility] Address: [address] [place] [address] Performed By: #### 5 8410-2 #### [facility] CLIA [id number] [address] [place] [address] [place] Gram Stainon 03-16-2025 GS Gram Stain 3+ Gram positive diplococci 2+ White Blood Cells No Epithelial cells Normal [facility] Comment on above: Performed By: #### M 100.2000, M100.2400 ####[facility] [id number] [place], [address] Legionella Ag Ur Qlon 2024 Legionella sp Ag Ql (U) Negative Normal Negative [facility] Comment on above: Order Comment: Speci men Type: ARTERIAL BLOOD SPECIMEN Ordering Facility: [facility] Address: [address] [place], [place] [address] Performed By: #### A LLBG #### [facility] CLIA [id number] [address] [place], [place] [address] [place] Lipase SerPl-cCncon 03-16-20 25 Lipase [Catalytic activity/Vol] 51 U/L Normal 12-60 [facility] Comment on above: Order Comment: Speci men Type: BLOOD SPECIMEN Ordering Facility: [facility] Address: [address] [place] [address] [place] [address] Performed By: #### 2 4323-8, 3040-3, 66514-7, 2777-1, 257-8 #### [facility] CLIA [id number] [address] [place], [place] [address] [place] Magnesium SerPl-mCncon 03-16 Magnesium [Mass/Vol] 1.1 mg/dL Low 1.6-2.6 [facility] Comment on above: Order Comment: Speci men Type: BLOOD SPECIMEN Ordering Facility: [facility] Address: [address] [place] [address] Performed By: #### 2 4323-8, 3040-3, 40171-0, 2777-1, 2578 #### [facility] CLIA [id number] [address] [place], [place] [address] [place] NUTRITIONon 03-16-2025 NUTRITION HNO ID: [id number] Author: GABE MILAN RD Service: Nutrition Therapy Author Type: Registered Dietitian Type: Nutrition Filed: 03/16/2025 15:46 Note Text: NUTRITION THERAPY INITIAL ASSESSMENT SERVICE DATE: 03/16/2025 SERVICE TIME: Start Time: 1435 Nutrition Assessment: Recommended Malnutrition Diagnosis: No Malnutrition Identified Nutrition Diagnosis: Problem: Suboptimal protein/energy intake Related to: Mechanical cause As evidenced by: Intubation Care Plan: Enteral Nutrition Tube Feeding Formula Type: Peptamen 1.5 Goal Rate (mL/hr x hours): 45 mL/hr x 24 hrs to provide 1080 mL formula, 1440 kcal, 73g protein, and 833 mL free water per day Water Flush Volume (mL x frequency): 30 mL q4h Recommended Enteral Access: Gastric, Oral Propofol providing an additional 151 kcal from lipids per day Monitor and Evaluation: Meet greater than 75% of estimated needs, Monitor tolerance to tube feeding, Monitor bowel function, Monitor labs, I/Os, vital signs, weight, Monitor fluid/electrolyte balance HPI: Pt admitted for septic shock and acute on chronic hypoxic respiratory failure due to pneumonia requiring mechanical ventilation. Also has history of acute on chronic pancreatitis s/p ERCP with stent placement 03/10. Other history as follows PAST MEDICAL HISTORY Diagnosis Date Acute exacerbation [...] Stage 3 severe COPD by GOLD classification ([facility]) 2018 Tobacco use greater than 30 years Unspecified hemorrhoids without mention of complication Urine, incontinence, stress female 11/24/2014 Intake History: Nutrition Intake Prior to Admission: Unable to determine Current Nutrition Intake: NPO Current Intake Over time: (1 day LOS) Dosing Weight: 60.8 kg (134 lb) Dosing Weight Type: Current weight Estimated kilocalorie needs: 3758-9761 Calorie Calculation Method: 25-30 kcals/kg Estimated protein needs (grams): 73-92 Grams protein determined by: 1.2 - 1.5 g/kg Diet Orders (From admission, onward) Start Ordered 03/15/25 2315 DIET NPO START NOW 03/15/25 2309 Anthropometrics: Height: 165.1 cm (5' 5) Weight: 61.1 kg (134 lb 11.2 oz) Usual Weight: 62.1 kg (137 lb) 12/19/24 Usual Weight Obtained From: Chart Review Body mass index is 22.42 kg/m?. Weight Change: Stable weight(s) Last Wt 03/16/25 : 61.1 kg (134 lb 11.2 oz) 03/10/25 : 59 kg (130 lb) 01/13/25 : 62.6 kg (138 lb) 12/19/24 : 62.1 kg (137 lb) 11/02/24 : 62.6 kg (138 lb) 08/15/24 : 64.4 kg (142 lb) 08/10/24 : 64.4 kg (142 lb) 08/05/24 : 65 kg (143 lb 4.8 oz) 05/18/24 : 60.3 kg (133 lb) Physical Exam: Subcutaneous fat loss: No Subcutaneous Fat Loss Muscle loss: No Muscle Loss Potential micronutrient deficiency: No deficiency identified Edema/Ascites: No edema GI Symptoms: None Functional Status: No Change Potential Signs of Inflammation: Chronic condition, Febrile, Tachycardia, Hypoalbuminemia, Hyperglycemia, Imaging studies, Microbiologic cultures, Leukocytosis, Shock, Sepsis Lines, Drains, and Airways Drain Duration GI/ Feeding 03/15/25 External Facility Gastric Mouth 1 day Indwelling Urinary Catheter 03/16/25 0000 External Facility Temperature Monitoring 16 Fr <1 day MNT Billing: $ Routine Care : 1 unit Time Spent (mins): 1 SIGNATURE: Gabe Milan RD PATIENT NAME: Gracie Banuelos DATE: March 16, 2025 TIME: 3:44 PM Normal [facility] PT panel Coag (PPP)on 2024 INR Coag (PPP) [Relative time] 1.1 {INR} Normal 0.9-1.3 [facility] Comment on above: Order Comment: Speci men Type: BLOOD SPECIMEN Ordering Facility: [facility] Address: [address] [place] [address] Result Comment: Zandra min K Antagonist (VKA) Therapeutic Range: INR 2 to 3 (Target INR of 2.5) Note: For patients treated with VKA drugs, such as warfarin, the [employer] 2012 Guideline recommends a therapeutic INR range of 2 to 3 (target INR of 2.5). This recommendation includes high-risk patients with antiphospholipid syndrome with previous arterial or venous thromboembolism, current-generation mechanical or bioprosthetic aortic heart valve replacement. Note: Patients with mechanical aortic valve replacement and additional risk factors for thromboembolic events (atrial fibrillation, previous thromboembolism, LV dysfunction, hypercoagulable conditions) or an older generation mechanical AVR (i.e., ball in-Cage) or any mechanical MVR should have a INR therapeutic range of 2.5 to 3.5 (target INR of 3). Pascual CAREY, et al. Chest 2012, 141:7S-47S Alessandro RA, et al. [facility] 2017, 70: 252-289 Performed By: #### 3 4528-0, 34321-1 #### [facility] CLIA [id number] [address] [place], [place] [address] [place] PT Coag (PPP) [Time] 12.1 s Normal 9.7-13.0 [facility] Comment on above: Order Comment: Reggie fajardo Type: BLOOD SPECIMEN Ordering Facility: [facility] Address: [address] [place] [address] Performed By: #### 3 4528-0, 51043-4 #### [facility] CLIA [id number] [address] [place], [place] [address] [place] Phosphate SerPl-mCncon 03-16 Phosphate [Mass/Vol] 2.9 mg/dL Normal 2.5-4.9 [facility] Comment on above: Order Comment: Reggie fajardo Type: ARTERIAL BLOOD SPECIMEN Ordering Facility: [facility] Address: [address] [id number] Result Comment: Elev ated m-protein (paraprotein) levels in the serum may be exhibited in patients with monoclonal gammopathies, causing falsely elevated inorganic phosphorus results. Performed By: #### A LLBG #### [facility] CLIA [id number] [address] [place] [address] [place] Procalcitonin SerPl-mCncon 0 03-16-2025 Procalcitonin [Mass/Vol] 0.68 ng/mL High 0.00-0.50 [facility] Comment on above: Order Comment: Reggie fajardo Type: ARTERIAL BLOOD SPECIMEN Ordering Facility: [facility] Address: [address] [place] [address] Result Comment: PCT Concentration Interpretation PCT <=0.1 ng/mL: Normal range for healthy adults PCT >0.1 ng/mL and <0.5 ng/mL: Systemic infection (sepsis) is possible and may require antibiotic treatment, but other conditions are known to elevate PCT as well. PCT >0.5 ng/mL: Should be considered at risk for developing severe sepsis or septic shock. PCT >2.0 ng/mL: Important systemic inflammatory response. Almost exclusively indicates episode of severe bacterial sepsis or septic shock. Performed By: #### A LLBG #### [facility] CLIA [id number] [address] [place] [address] [place] SEPSIS LACTATE W/ REFLEX (IN ITIAL)on 03-16-2025 Lactate [Moles/Vol] 1.3 mmol/L Normal 0.4-2.0 [facility] Comment on above: Order Comment: Speci men Type: BLOOD SPECIMEN Ordering Facility: [facility] Address: [address] [place] [address] Performed By: #### S LACTR #### [facility] CLIA [id number] [address] [place] [address] [place] STAPHYLOCOCCUS AUREUS AND MR SA SCREEN, PCR, NASALon 03-16-2025 S. aureus and MRSA panel KANDY+probe (Nose) Methicillin-SUSCEPTIBLE Staphylococcus aureus Detected Abnormal Not Detected [facility] Comment on above: Order Comment: Speci men Type: BLOOD SPECIMEN Ordering Facility: [facility] Address: [address] [place] [address] Performed By: #### 5 8410-2 #### [facility] CLIA [id number] [address] [place] [address] [place] STREPTOCOCCUS PNEUMONIAE ANT IGEN URINEon 03-16-2025 STREPTOCOCCUS PNEUMONIAE ANTIGEN URINE STREP PNEUMO AG RESULT: Negative for Streptococcus pneumoniae antigen. Presumptive negative for pneumococcal pneumonia, suggesting no current or recent pneumococcal infection. Infection due to S.pneumoniae cannot be ruled out since the antigen present in the sample may be below the detection limit of the test. Normal [facility] Comment on above: Performed By: #### A LLBG #### [facility] CLIA [id number] [address] [place] [address] [place] Trigl SerPl-mCncon Triglyceride [Mass/Vol] 159 mg/dL High 30-149 M [facility] Comment on above: Order Comment: Speci men Type: ARTERIAL BLOOD SPECIMEN Ordering Facility: [facility] Address: [address] [place] [address] Result Comment: <150 mg/dL, Normal 150-199 mg/dL, Borderline high 200-499 mg/dL, High >499 mg/dL, Very high Reference: 1. National Cholesterol Education Program ATP III Guideline At-A-Glance Quick Desk Reference: National Heart, Lung, and Blood [place]. National Institutes of Health. 2001: NIH Publication No. 01-3305. Patients receiving either N-Acetylcysteine (NAC) or Metamizole prior to venipuncture, may have falsely depressed results. Performed By: #### A LLBG #### [facility] CLIA [id number] [address] [place] [address] Triglyceride [Mass/Vol]on FASTING TIME Not none Normal [facility] Comment on above: Order Comment: Speci men Type: ARTERIAL BLOOD SPECIMEN Ordering Facility: [facility] Address: [address] [place] [address] Performed By: #### A LLBG #### [facility] CLIA [id number] [address] [place] [address] Urinalysis complete panel (U )on 03-16-2025 Bacteria LM.HPF (Urine sed) [#/Area] Rare Abnormal None Seen [facility] Comment on above: Order Comment: Speci men Type: ARTERIAL BLOOD SPECIMEN Ordering Facility: [facility] Address: [address] [place] [address] Performed By: #### A LLBG #### [facility] CLIA [id number] [address] [place] [address] Bilirubin Ql (U) Negative Normal Negative [facility] Comment on above: Order Comment: Speci men Type: ARTERIAL BLOOD SPECIMEN Ordering Facility: [facility] Address: [address] [place] [address] Performed By: #### A LLBG #### [facility] CLIA [id number] [address] [place] [address] Clarity (Unsp spec) Clear Normal Clear [facility] Comment on above: Order Comment: Speci men Type: ARTERIAL BLOOD SPECIMEN Ordering Facility: [facility] Address: [address] [place] [address] Performed By: #### A LLBG #### [facility] CLIA [id number] [address] [place] [address] [place] Color (U) Colorless Normal Yellow [facility] Comment on above: Order Comment: Speci men Type: ARTERIAL BLOOD SPECIMEN Ordering Facility: [facility] Address: [address] [place] [address] Performed By: #### A LLBG #### [facility] CLIA [id number] [address] [place] [address] [place] Epithelial cells LM.HPF (Urine sed) [#/Area] None Seen Normal [facility] Comment on above: Order Comment: Speci men Type: ARTERIAL BLOOD SPECIMEN Ordering Facility: [facility] Address: [address] [place] [address] Performed By: #### A LLBG #### [facility] CLIA [id number] [address] [place] [address] [place] Glucose Test strip (U) [Mass/Vol] 1+ Abnormal Negative [facility] Comment on above: Order Comment: Speci men Type: ARTERIAL BLOOD SPECIMEN Ordering Facility: [facility] Address: [address] [place] [address] Performed By: #### A LLBG #### [facility] CLIA [id number] [address] [place] [address] [place] Hemoglobin Ql (U) 1+ Abnormal Negative [facility] Comment on above: Order Comment: Speci men Type: ARTERIAL BLOOD SPECIMEN Ordering Facility: [facility] Address: [address] [place] [address] Performed By: #### A LLBG #### [facility] CLIA [id number] [address] [place] [address] [place] Ketones Ql (U) 1+ Abnormal Negative [facility] Comment on above: Order Comment: Speci men Type: ARTERIAL BLOOD SPECIMEN Ordering Facility: [facility] Address: [address] [place] [address] Performed By: #### A LLBG #### [facility] CLIA [id number] [address] [place] [address] Leukocyte esterase Test strip Ql (U) Negative Normal Negative [facility] Comment on above: Order Comment: Speci men Type: ARTERIAL BLOOD SPECIMEN Ordering Facility: [facility] Address: [address] [place] [address] Performed By: #### A LLBG #### [facility] CLIA [id number] [address] [place] [address] OF [facility] Nitrite Ql (U) Negative Normal Negative [facility] Comment on above: Order Comment: Speci men Type: ARTERIAL BLOOD SPECIMEN Ordering Facility: [facility] Address: [address] [place] [address] Performed By: #### A LLBG #### [facility] CLIA [id number] [address] [place] [address] [place] pH (U) 6.0 [pH] Normal 5.0-8.0 [facility] Comment on above: Order Comment: Speci men Type: ARTERIAL BLOOD SPECIMEN Ordering Facility: [facility] Address: [address] [place] [address] Performed By: #### A LLBG #### [facility] CLIA [id number] [address] [place] [address] [place] Protein (U) [Mass/Vol] Negative Normal Negative [facility] Comment on above: Order Comment: Speci men Type: ARTERIAL BLOOD SPECIMEN Ordering Facility: [facility] Address: [address] [place] [address] Performed By: #### A LLBG #### [facility] CLIA [id number] [address] [place] [address] RBC LM.HPF (Urine sed) [#/Area] 0-3 /HPF Normal 0-3 /HPF [facility] Comment on above: Order Comment: Speci men Type: ARTERIAL BLOOD SPECIMEN Ordering Facility: [facility] Address: [address] [place] [address] Performed By: #### A LLBG #### [facility] CLIA [id number] [address] [place] [address] [place] Specific gravity (U) [Rel density] 1.026 Normal 1.005-1.030 [facility] Comment on above: Order Comment: Speci men Type: ARTERIAL BLOOD SPECIMEN Ordering Facility: [facility] Address: [address] [place] [address] Performed By: #### A LLBG #### [facility] CLIA [id number] [address] [place] [address] [place] Urobilinogen Ql (U) Negative Normal Negative [facility] Comment on above: Order Comment: Speci men Type: ARTERIAL BLOOD SPECIMEN Ordering Facility: [facility] Address: [address] [place] [address] Performed By: #### A LLBG #### [facility] CLIA [id number] [address] [place] [address] [place] WBC LM.HPF (Urine sed) [#/Area] 0-5 /HPF Normal 0-5 /HPF [facility] Comment on above: Order Comment: Speci men Type: ARTERIAL BLOOD SPECIMEN Ordering Facility: [facility] Address: [address] [place] [address] Performed By: #### A LLBG #### [facility] CLIA [id number] [address] [place] [address] [place] XR CHEST 1V FRONTAL PORTon 0 03-16-2025 XR CHEST 1V FRONTAL PORT * * *Final Report* * * DATE OF EXAM: Mar 16 2025 2:20PM [id number] [id number] - XR CHEST 1V FRONTAL PORT / PROCEDURE REASON: Evaluate tube, line, or lead position * * * * Physician Interpretation * * * * EXAMINATION: CHEST RADIOGRAPH (PORTABLE SINGLE VIEW AP) Exam Date/Time: 03/16/2025 2:20 PM CLINICAL HISTORY: Evaluate tube, line, or lead position MQ: XCPR_5 Comparison: Portable upright chest 03/15/2025, CT thorax 03/16/2025. RESULT: Lines, tubes, and devices: The tip of the ET tube projects 5.6 cm above the sterling. Enteric tube extends into the stomach. There has been interval placement of a left IJ central line with the tip in the mid SVC region. Lungs and pleura: Stable bilateral costophrenic angle blunting with hazy opacity in the left lower lung. Skinfold projects over the upper left chest laterally. No pneumothorax. Cardiomediastinal silhouette: Stable cardiomediastinal silhouette. Mitral annular calcifications noted. There is atherosclerotic calcification at the aortic arch. Other: Osseous structures are stable. IMPRESSION: Left IJ central line in the SVC. No pneumothorax or other significant interval change in the appearance of the chest. Specialist Managers: PSCB Transcribe Date/Time: Mar 16 2025 2:26P Dictated by : JOSE GUADALUPE MOROCHO MD This examination was interpreted and the report reviewed and electronically signed by: JOSE GUADALUPE MOROCHO MD on Mar 16 2025 2:30PM EST [id number] Normal [facility] aPTT PPPon 03-16-2025 aPTT Coag (PPP) [Time] 26.3 s Normal 23.0-32.4 [facility] Comment on above: Order Comment: Speci men Type: BLOOD SPECIMEN Ordering Facility: [facility] Address: [address] [place] [address] Performed By: #### 3 4528-0, 72824-6 #### [facility] CLIA [id number] [address] [place] [address] [place] ALLIED HEALTHon 03-15-2025 ALLIED HEALTH HNO ID: [id number] Author: SYD CHOUDHARY RT(R) Service: ? Author Type: Assistant Speech Language Pathologist Type: Allied Health Filed: 03/15/2025 23:51 Note Text: Summary: xray Radiology Service Progress Note PATIENT NAME: Gracie Banuelos DATE OF SERVICE: March 15, 2025 TIME: 11:51 PM PATIENT IDENTITY VERIFICATION COMPLETED USING TWO (2) IDENTIFIERS: Name and Date of confirmed by identification band. FALL SCREENING: Has the patient had 2 falls in the last year or 1 fall with injury or currently using an Ambulatory Assistive Device (Walker, Cane, Wheelchair, Crutches, etc.)? Inpatient: Screened on floor PATIENT GENDER DATA: Assigned female at . status: : No status: NO. PATIENT RELEVANT IMPLANT DATA REVIEWED: Not Applicable PATIENT PRESENTS WITH AN IMPLANTABLE OR ATTACHED PARK MANAGER: No RADIOLOGY DEPARTMENT: General X-ray: Exam(s) Completed: Chest X-Ray Abdomen X-Ray: Abdomen PERIPHERAL IV DATA: Not applicable SIGNED BY: Syd Choudhary RT(R) March 15, 2025 11:51 PM [facility] Absolute lymphocyte countOrd ered By: Sudhir Izquierdo on 03-15-2025 Lymphocytes Auto (Unsp spec) [#/Vol] 1.20 10*3/uL 0.83-4.51 [facility] Anion gap in Serum or Plasma Ordered By: Sudhir Izquierdo on 03-15-2025 Anion gap [Moles/Vol] 14 mmol/L 5-15 [facility] Assessment of wrist artery p atency prior to arterial punctureOrdered By: Sudhir Izquierdo on 03-15-2025 Arterial patency Wrist artery --pre arterial puncture Positive [facility] Automated lymphocyte count a s percentage of total leukocytesOrdered By: Sudhir Izquierdo on 03-15-2025 Lymphocytes/100 WBC Auto (Unsp spec) 5.8 % Low 19-41 [facility] BUN/creatinine ratioOrdered By: Sudhir Izquierdo on 03-15-2025 Urea nitrogen/Creatinine [Mass ratio] 15.6 mg/mg 10-20 [facility] Basophil percentageOrdered B y: Sudhir Izquierdo on 03-15-2025 Basophils/100 WBC (Bld) 0.4 % 0-1 [facility] Bilirubin, totalOrdered By: Sudhir Izquierdo on 03-15-2025 Bilirubin [Mass/Vol] 0.24 mg/dL 0.00-1.30 [facility] Blood Gases by CPSon 025 SERGEI TEST Positive Normal [facility] Comment on above: Performed By: #### L 9000.0800 ####[facility] [id number] [place], [address] Base excess Calc (Bld) [Moles/Vol] 0 mmol/L Normal -2 to +2 [facility] Comment on above: Performed By: #### L 9000.0800 ####[facility] [id number] [place], [address] Blood Gas Type ART Normal [facility] Comment on above: Performed By: #### L 9000.0800 ####[facility] [id number] [place], [address] CO2 [Moles/Vol] 29 mmol/L [facility] Comment on above: Performed By: #### L 9000.0800 ####[facility] [id number] [place], [address] FI02 90.0 Normal [facility] Comment on above: Performed By: #### L 9000.0800 ####[facility] [address] [place], [address] HCO3 (Bld) [Moles/Vol] 26.8 mmol/L High 22-26 [facility] Comment on above: Performed By: #### L 9000.0800 ####[facility] [address] [place], [address] Mode AC Normal [facility] Comment on above: Performed By: #### L 9000.0800 ####[facility] [address] [place], [address] O2 Delivery Dev ET Tube Normal [facility] Comment on above: Performed By: #### L 9000.0800 ####[facility] [address] [place], [address] pCO2 59.5 mmHg High 35-45 [facility] Comment on above: Performed By: #### L 9000.0800 ####[facility] [address] [place], [address] PEEP 12 Normal [facility] Comment on above: Performed By: #### L 9000.0800 ####[facility] [address] [place], [address] pH (Bld) 7.26 [pH] Low 7.35-7.45 [facility] Comment on above: Performed By: #### L 9000.0800 ####[facility] [address] [place], [address] PO2 75 mmHG Normal 75-100 [facility] Comment on above: Performed By: #### L 9000.0800 ####[facility] [address] [place], [address] RR 16 Normal [facility] Comment on above: Performed By: #### L 9000.0800 ####[facility] [address] [place], [address] SITE R Radial Normal [facility] Comment on above: Performed By: #### L 9000.0800 ####[facility] [address] [place], [address] SO2 92 Low 95-99 [facility] Comment on above: Performed By: #### L 9000.0800 ####[facility] [address] [place], [address] Vt 450.0 mL Normal [facility] Comment on above: Performed By: #### L 8999.08 ####[facility] [address] [place], [address] Base excess Calc (Bld) [Moles/Vol] 1 mmol/L Normal -2 to +2 [facility] Comment on above: Performed By: #### L 8999.0800 ####[facility] [address] [place], [address] Blood Gas Type ART Normal [facility] Comment on above: Performed By: #### L 8999.08 ####[facility] [address] [place], [address] CO2 [Moles/Vol] 32 mmol/L Normal [facility] Comment on above: Performed By: #### L 8999.0800 ####[facility] [address] [place], [address] FI02 100.0 Normal [facility] Comment on above: Performed By: #### L 8999.0800 ####[facility] [address] [place], [address] HCO3 (Bld) [Moles/Vol] 29.3 mmol/L High 22-26 [facility] Comment on above: Performed By: #### L 8999.08 ####[facility] [address] [place], [address] Mode AC Normal [facility] Comment on above: Performed By: #### L 8999.08 ####[facility] [address] [place], [address] O2 Delivery Dev Adult Vent Normal [facility] Comment on above: Performed By: #### L 8999.0800 ####[facility] [address] [place], [address] pCO2 77.2 mmHg Invalid Interpretation Code 35-45 [facility] Comment on above: Performed By: #### L 9000.0800 ####[facility] [address] [place], [address] PEEP 12 Normal [facility] Comment on above: Performed By: #### L 9000.0800 ####[facility] [address] [place], [address] pH (Bld) 7.19 [pH] Invalid Interpretation Code 7.35-7.45 [facility] Comment on above: Performed By: #### L 9000.0800 ####[facility] [address] [place], [address] PO2 49 mmHG Low 75-100 [facility] Comment on above: Performed By: #### L 9000.0800 ####[facility] [address] [place], [address] Read Back By Yes [facility] Comment on above: Performed By: #### L 9000.0800 ####[facility] [address] [place], [address] Results To BROWN [facility] Comment on above: Performed By: #### L 9000.0800 ####[facility] [address] [place], [address] RR 16 Normal [facility] Comment on above: Performed By: #### L 9000.0800 ####[facility] [address] [place], [address] SITE R Brach [facility] Comment on above: Performed By: #### L 9000.0800 ####[facility] [address] [place], [address] SO2 72 Low 95-99 [facility] Comment on above: Performed By: #### L 9000.0800 ####[facility] [address] [place], [address] Time Given 17:53:45 Normal [facility] Comment on above: Performed By: #### L 9000.0800 ####[facility] [address] [place], [address] Vt 400.0 mL Normal [facility] Comment on above: Performed By: #### L 9000.0800 ####[facility] [address] [place], [address] Base excess Calc (Bld) [Moles/Vol] -1 mmol/L Normal -2 to +2 [facility] Comment on above: Performed By: #### L 9000.0800 ####[facility] [address] [place], [address] Blood Gas Type ART Normal [facility] Comment on above: Performed By: #### L 9000.0800 ####[facility] [address] [place], [address] CO2 [Moles/Vol] 31 mmol/L Normal [facility] Comment on above: Performed By: #### L 9000.0800 ####[facility] [address] [place], [address] FI02 100.0 Normal [facility] Comment on above: Performed By: #### L 9000.0800 ####[facility] [address] [place], [address] HCO3 (Bld) [Moles/Vol] 28.5 mmol/L High 22-26 [facility] Comment on above: Performed By: #### L 9000.0800 ####[facility] [address] [place], [address] Mode Not entered [facility] Comment on above: Performed By: #### L 9000.0800 ####[facility] [address] [place], [address] O2 Delivery Dev BiPAP [facility] Comment on above: Performed By: #### L 9000.0800 ####[facility] [address] [place], [address] pCO2 83.5 mmHg Invalid Interpretation Code 35-45 [facility] Comment on above: Performed By: #### L 9000.0800 ####[facility] [address] [place], [address] PEEP 10 [facility] Comment on above: Performed By: #### L 9000.0800 ####[facility] [address] [place], [address] pH (Bld) 7.14 [pH] Invalid Interpretation Code 7.35-7.45 [facility] Comment on above: Performed By: #### L 9000.0800 ####[facility] [address] [place], [address] PO2 74 mmHG Low 75-100 [facility] Comment on above: Performed By: #### L 9000.0800 ####[facility] [address] [place], [address] Read Back By Yes [facility] Comment on above: Performed By: #### L 9000.0800 ####[facility] [address] [place], [address] Results To BROWN [facility] Comment on above: Performed By: #### L 9000.0800 ####[facility] [address] [place], [address] RR 16 [facility] Comment on above: Performed By: #### L 9000.0800 ####[facility] [address] [place], [address] SITE R Brach Normal [facility] Comment on above: Performed By: #### L 8999.08 ####[facility] [address] [place], [address] SO2 88 Low 95-99 [facility] Comment on above: Performed By: #### L 8999.0800 ####[facility] [address] [place], [address] Time Given 15:53:31 Normal [facility] Comment on above: Performed By: #### L 8999.0800 ####[facility] [address] [place], [address] Vt 450.0 mL Normal [facility] Comment on above: Performed By: #### L 8999.08 ####[facility] [address] [place], [address] Base excess Calc (Bld) [Moles/Vol] 0 mmol/L Normal -2 to +2 [facility] Comment on above: Performed By: #### L 8999.0800 ####[facility] [address] [place], [address] Blood Gas Type ART Normal [facility] Comment on above: Performed By: #### L 8999.0800 ####[facility] [address] [place], [address] CO2 [Moles/Vol] 31 mmol/L Normal [facility] Comment on above: Performed By: #### L 8999.08 ####[facility] [address] [place], [address] FI02 100.0 Normal [facility] Comment on above: Performed By: #### L 8999.0800 ####[facility] [address] [place], [address] HCO3 (Bld) [Moles/Vol] 28.9 mmol/L High 22-26 [facility] Comment on above: Performed By: #### L 9000.0800 ####[facility] [address] [place], [address] Mode BiLevel Normal [facility] Comment on above: Performed By: #### L 9000.0800 ####[facility] [address] [place], [address] O2 Delivery Dev BiPAP Normal [facility] Comment on above: Performed By: #### L 9000.0800 ####[facility] [address] [place], [address] pCO2 79.1 mmHg Invalid Interpretation Code 35-45 [facility] Comment on above: Performed By: #### L 9000.0800 ####[facility] [address] [place], [address] PEEP 10 Normal [facility] Comment on above: Performed By: #### L 9000.0800 ####[facility] [address] [place], [address] pH (Bld) 7.17 [pH] Invalid Interpretation Code 7.35-7.45 [facility] Comment on above: Performed By: #### L 9000.0800 ####[facility] [address] [place], [address] PO2 81 mmHG Normal 75-100 [facility] Comment on above: Performed By: #### L 9000.0800 ####[facility] [address] [place], [address] Read Back By Yes Normal [facility] Comment on above: Performed By: #### L 9000.0800 ####[facility] [address] [place], [address] Results To BROWN [facility] Comment on above: Performed By: #### L 9000.0800 ####[facility] [address] [place], [address] RR 16 [facility] Comment on above: Performed By: #### L 9000.0800 ####[facility] [address] [place], [address] SITE R Brach [facility] Comment on above: Performed By: #### L 9000.0800 ####[facility] [address] [place], [address] SO2 92 Low 95-99 [facility] Comment on above: Performed By: #### L 9000.0800 ####[facility] [address] [place], [address] Time Given 10:48:00 [facility] Comment on above: Performed By: #### L 9000.0800 ####[facility] [address] [place], [address] Vt 450.0 mL [facility] Comment on above: Performed By: #### L 9000.0800 ####[facility] [address] [place], [address] SERGEI TEST Positive [facility] Comment on above: Performed By: #### L 9000.0800 ####[facility] [address] [place], [address] Base excess Calc (Bld) [Moles/Vol] -3 mmol/L Low -2 to +2 [facility] Comment on above: Performed By: #### L 9000.0800 ####[facility] [address] [place], [address] Blood Gas Type ART [facility] Comment on above: Performed By: #### L 9000.0800 ####[facility] [address] [place], [address] CO2 [Moles/Vol] 28 mmol/L Normal [facility] Comment on above: Performed By: #### L 9000.0800 ####[facility] [address] [place], [address] FI02 100.0 Normal [facility] Comment on above: Performed By: #### L 9000.0800 ####[facility] [address] [place], [address] HCO3 (Bld) [Moles/Vol] 26.1 mmol/L High 22-26 [facility] Comment on above: Performed By: #### L 9000.0800 ####[facility] [address] [place], [address] Mode avaps Normal [facility] Comment on above: Performed By: #### L 9000.0800 ####[facility] [address] [place], [address] O2 Delivery Dev BiPAP Normal [facility] Comment on above: Performed By: #### L 9000.0800 ####[facility] [address] [place], [address] pCO2 75.9 mmHg Invalid Interpretation Code 35-45 [facility] Comment on above: Performed By: #### L 9000.0800 ####[facility] [address] [place], [address] PEEP 10 Normal [facility] Comment on above: Performed By: #### L 9000.0800 ####[facility] [address] [place], [address] pH (Bld) 7.14 [pH] Invalid Interpretation Code 7.35-7.45 [facility] Comment on above: Performed By: #### L 0.0800 ####[facility] [address] [place], [address] PO2 85 mmHG Normal 75-100 [facility] Comment on above: Performed By: #### L 8999.0800 ####[facility] [address] [place], [address] Read Back By Yes Normal [facility] Comment on above: Performed By: #### L 0.0800 ####[facility] [address] [place], [address] Results To de dustin Normal [facility] Comment on above: Performed By: #### L 0.0800 ####[facility] [address] [place], [address] RR 16 Normal [facility] Comment on above: Performed By: #### L 0.0800 ####[facility] [address] [place], [address] SITE R Radial Normal [facility] Comment on above: Performed By: #### L 0.0800 ####[facility] [address] [place], [address] SO2 92 Low 95-99 [facility] Comment on above: Performed By: #### L 8999.0800 ####[facility] [address] [place], [address] Time Given 07:33:57 [facility] Comment on above: Performed By: #### L 9000.0800 ####[facility] [address] [place], [address] Vt 450.0 mL [facility] Comment on above: Performed By: #### L 9000.0800 ####[facility] [address] [place], [address] SERGEI TEST N/A Normal [facility] Comment on above: Performed By: #### L 9000.0800 ####[facility] [address] [place], [address] Base excess Calc (Bld) [Moles/Vol] -3 mmol/L Low -2 to +2 [facility] Comment on above: Performed By: #### L 9000.0800 ####[facility] [address] [place], [address] Blood Gas Type ART Normal [facility] Comment on above: Performed By: #### L 9000.0800 ####[facility] [address] [place], [address] CO2 [Moles/Vol] 28 mmol/L Normal [facility] Comment on above: Performed By: #### L 9000.0800 ####[facility] [address] [place], [address] FI02 92.0 Normal [facility] Comment on above: Performed By: #### L 9000.0800 ####[facility] [address] [place], [address] HCO3 (Bld) [Moles/Vol] 25.8 mmol/L Normal 22-26 [facility] Comment on above: Performed By: #### L 9000.0800 ####[facility] [address] [place], [address] Mode 60L Normal [facility] Comment on above: Performed By: #### L 9000.0800 ####[facility] [address] [place], [address] O2 Delivery Dev AIRVO Normal [facility] Comment on above: Performed By: #### L 9000.0800 ####[facility] [address] [place], [address] pCO2 71.3 mmHg Invalid Interpretation Code 35-45 [facility] Comment on above: Performed By: #### L 9000.0800 ####[facility] [address] [place], [address] pH (Bld) 7.17 [pH] Invalid Interpretation Code 7.35-7.45 [facility] Comment on above: Performed By: #### L 9000.0800 ####[facility] [address] [place], [address] PO2 67 mmHG Low 75-100 [facility] Comment on above: Performed By: #### L 9000.0800 ####[facility] [address] [place], [address] Read Back By Yes [facility] Comment on above: Performed By: #### L 9000.0800 ####[facility] [address] [place], [address] Monk [facility] Comment on above: Performed By: #### L 9000.0800 ####[facility] [address] [place], [address] SITE R Brach [facility] Comment on above: Performed By: #### L 9000.0800 ####[facility] [address] [place], [address] SO2 86 Low 95-99 [facility] Comment on above: Performed By: #### L 9000.0800 ####[facility] [address] [place], [address] Time Given 06:03:13 [facility] Comment on above: Performed By: #### L 9000.0800 ####[facility] [address] [place], [address] Blood base excess determinat ionOrdered By: Sudhir Izquierdo on 03-15-2025 Base excess Calc (BldV) [Moles/Vol] 0 mmol/L -2-2 [facility] Blood bicarbonate measuremen tOrdered By: Sudhir Izquierdo on 03-15-2025 HCO3 (Bld) [Moles/Vol] 26.8 mmol/L High 22-26 [facility] CBC W/Diff, Automatedon 02-26 Absolute Lymph 1.20 X10 3/uL Normal 0.83-4.51 [facility] Comment on above: Performed By: #### L 500.4050, L100.0100 ####[facility] [address] [place], [address] Absolute Neut 17.4 X10 3/uL High 2.0-7.7 [facility] Comment on above: Performed By: #### L 500.4050, L100.0100 ####[facility] [address] [place], [address] Basophils/100 WBC (Bld) 0.4 % Normal 0-1 [facility] Comment on above: Performed By: #### L 500.4050, L100.0100 ####[facility] [address] [place], [address] Eosinophils/100 WBC (Bld) 0.3 % Normal 0-5 [facility] Comment on above: Performed By: #### L 500.4050, L100.0100 ####[facility] [address] [place], [address] Erythrocyte distribution width (RBC) [Ratio] 14.6 % Normal 11.6-14.6 [facility] Comment on above: Performed By: #### L 500.4050, L100.0100 ####[facility] [address] [place], [address] Hematocrit (Bld) [Volume fraction] 37.1 % Normal 37-47 [facility] Comment on above: Performed By: #### L 500.4050, L100.0100 ####[facility] [address] [place], [address] Hemoglobin (Bld) [Mass/Vol] 10.9 g/dL Low 12.0-15.0 [facility] Comment on above: Performed By: #### L 500.4050, L100.0100 ####[facility] [address] [place], [address] IG% 3.800 High 0.0-0.9 [facility] Comment on above: Result Comment: IG% - Immature Granulocytes (promyelocytes, myelocytes andmetamyelocytes) > 1% indicates that a LEFT SHIFT is Present. Performed By: #### L 500.4050, L100.0100 ####[facility] [address] [place], [address] Lymphocytes/100 WBC (Bld) 5.8 % Low 19-41 [facility] Comment on above: Performed By: #### L 500.4050, L100.0100 ####[facility] [address] [place], [address] MCH (RBC) [Entitic mass] 26.3 pg Low 27.0-32.0 [facility] Comment on above: Performed By: #### L 500.4050, L100.0100 ####[facility] [address] [place], [address] MCHC (RBC) [Mass/Vol] 29.4 g/dL Low 32-36 [facility] Comment on above: Performed By: #### L 500.4050, L100.0100 ####[facility] [address] [place], [address] MCV (RBC) [Entitic vol] 89.4 fL Normal 81-99 [facility] Comment on above: Performed By: #### L 500.4050, L100.0100 ####[facility] [address] [place], [address] Monocytes/100 WBC (Bld) 6.1 % Normal 0-10 [facility] Comment on above: Performed By: #### L 500.4050, L100.0100 ####[facility] [address] [place], [address] Neutrophils/100 WBC (Bld) 83.6 % High 47-70 [facility] Comment on above: Performed By: #### L 500.4050, L100.0100 ####[facility] [address] [place], [address] Nucleated RBC (Bld) [#/Vol] 0 10*3/uL Normal 0-5 [facility] Comment on above: Performed By: #### L 500.4050, L100.0100 ####[facility] [address] [place], [address] Platelet mean volume (Bld) [Entitic vol] 10.1 fL Normal 6.2-12.0 [facility] Comment on above: Performed By: #### L 500.4050, L100.0100 ####[facility] [address] [place], [address] Platelets (Bld) [#/Vol] 315 10*3/uL Normal 150-450 [facility] Comment on above: Performed By: #### L 500.4050, L100.0100 ####[facility] [address] [place], [address] RBC (Bld) [#/Vol] 4.15 10*6/uL Low 4.2-5.4 [facility] Comment on above: Performed By: #### L 500.4050, L100.0100 ####[facility] [address] [place], [address] RDW SD 48.1 fl High 35.1-43.9 [facility] Comment on above: Performed By: #### L 500.4050, L100.0100 ####[facility] [address] [place], [place], [address] WBC (Bld) [#/Vol] 20.8 10*3/uL High 4.4-11.0 [facility] Comment on above: Performed By: #### L 500.4050, L100.0100 ####[facility] [address] [place], [place], [address] CNCRITCRon 03-15-2025 CNCRITCR Critical Care Transp ort (CCT) GRACIE BANUELOS ([id number]) 1965 F Date Time Provider Department 03/15/25 MAKSIM ANDERSON During your visit today, we recorded the following information about you: Maksim Anderson APRN.CNP 03/16/2025 7:05 AM Signed CRITICAL CARE TRANSPORT MEDICAL CONTROL CONSULT NOTE Patient Name: Gracie Banuelos Service Date: March 16, 2025 Referring Facility: [facility] Accepting Facility: [facility] REASON FOR TRANSPORT: Higher level intensive care services not available at the referring facility REASON FOR CONSULT: Hypotension and Sedation CCT MEDICAL CONTROL CONSULT SUMMARY: History, physical exam findings, and available background patient information from CCT Transport Nurse were reviewed at the time of consult. Pertinent additional information was reviewed as follows: CCT transport request log In brief, Gracie Banuelos is a 59 year old female with a history, known at time of consult, significant for Smoking and COPD (5L N/C at home) who was admitted to [facility] for evaluation of Acute on Chronic Pancreatitis s/p pancreatic duct shunt (03/12). On the morning of 03/15, patient started having increasing SOB with an elevated BNP. She was started on BIPAP and diuresed. Patient decompensated this afternoon and was intubated. She was placed on the ventilator A/C VCV Rate 16, TV 450, FIO2 90%, PEEP 12. Precedex was started for sedation. After intubation patient was hypotensive with BP 69/44. She was started on Levophed which was titrated for MAP >65. An ABG was completed with pH 7.26, PaCO2 59.5, PaO2 74.6, HCO3 26.8. Patient is being transferred to [facility] for higher level intensive care services not available at the referring facility. En route, patient continued to be hypotensive with MAP <65. Patient was awake on the ventilator with RASS 0 to +1. PLAN: Multiple factors considered including: patient history/condition/traje ctory/stability, referring and receiving destinations, duration of transport time, medications and therapies available during transport, patient safety, as well as crew capabilities. Orders given for: Levophed 8mg/250ml IV at 15mcg/min, titrate to MAP 65-75 Vasopressin 20units/100ml IV at 0.04units/min Precedex 400mcg/100ml IV at 0.7mcg/kg/hr, titrate to RASS 0 to -2 Fentanyl 25mcg IVP X3 Plan of care and orders confirmed and read back via telephone with [facility] Transport restaurant hourly team member, Dung Coe, Sound Truck Operator SIGNATURE: Maksim Anderson APRN.RN FACULTY Acute Care Nurse Practitioner Critical Care Transport Allergies As of Date: 03/15/2025 Noted Allergy Reaction BACTRIM (SULFAMETHOXAZOLE-TRIME TH*11/28/2022 4 - Hives HYDROCODONE 08/02/2020 9 - Itching PENICILLINS 07/07/2006 14 - Other: See Comments Comments: hives VALIUM (DIAZEPAM) 11/02/2013 14 - Other: See Comments Comments: cross reaction with alcohol addiction Date Reviewed: 03/10/2025 Reviewed by: Janis Ac RN - Fully Assessed Reason for Visit: Critical Care Transport [8] Order(s):[] fentaNYL 50 mcg/mL 25 mcg injection (SUBLIMAZE)Disp: Rfl: 0 [] fentaNYL 50 mcg/mL 25 mcg injection (SUBLIMAZE)Disp: Rfl: 0 [] fentaNYL 50 mcg/mL 25 mcg injection (SUBLIMAZE)Disp: Rfl: 0 Prescriptions as of 03/17/2025 - gabapentin (NEURONTIN) 300 mg capsule Take [...] day as needed. - Blood Pressure Monitor (more content not included)... Normal [facility] CXR for Line Placementon CXR for Line Placement Normal [facility] Carbon dioxide, total [Moles /volume] in Central venous bloodOrdered By: Sudhir Izquierdo on 03-15-2025 CO2 [Moles/Vol] 22.5 mmol/L 21.0-32.0 [facility] Chest 1 View (Portable)on Chest 1 View (Portable) Normal [facility] Chloride assayOrdered By: Rosana Izquierdo on 03-15-2025 Chloride [Moles/Vol] 103 mmol/L 98-108 [facility] Comprehensive Metabolic Prof ilon 03-15-2025 Albumin [Mass/Vol] 3.5 g/dL Normal 3.4-4.8 [facility] Comment on above: Performed By: #### L 500.4050, L100.0100 ####[facility] [address] [place], [address] Albumin/Globulin [Mass ratio] 1.0 {ratio} Normal 0.9-2.4 [facility] Comment on above: Performed By: #### L 500.4050, L100.0100 ####[facility] [address] [place], [address] ALK PHOS 191 U/L High 35-104 [facility] Comment on above: Performed By: #### L 500.4050, L100.0100 ####[facility] [address] [place], [address] ALT [Catalytic activity/Vol] 24 U/L Normal <=34 [facility] Comment on above: Performed By: #### L 500.4050, L100.0100 ####[facility] [address] [place], [address] AST [Catalytic activity/Vol] 18 U/L Normal <=31 [facility] Comment on above: Performed By: #### L 500.4050, L100.0100 ####[facility] [address] [place], [address] Bilirubin [Mass/Vol] 0.24 mg/dL Normal 0.00-1.30 [facility] Comment on above: Performed By: #### L 500.4050, L100.0100 ####[facility] [address] [place], [address] BUN/CRE 15.6 RATIO Normal 10-20 [facility] Comment on above: Performed By: #### L 500.4050, L100.0100 ####[facility] [address] [place], [address] Calcium [Mass/Vol] 9.4 mg/dL Normal 7.6-11.0 [facility] Comment on above: Performed By: #### L 500.4050, L100.0100 ####[facility] [address] [place], [address] Chloride [Moles/Vol] 103 mmol/L Normal 98-108 [facility] Comment on above: Performed By: #### L 500.4050, L100.0100 ####[facility] [address] [place], [address] CO2 [Moles/Vol] 22.5 mmol/L Normal 21.0-32.0 [facility] Comment on above: Performed By: #### L 500.4050, L100.0100 ####[facility] [address] [place], [address] Creatinine [Mass/Vol] 0.73 mg/dL Normal 0.70-1.20 [facility] Comment on above: Performed By: #### L 500.4050, L100.0100 ####[facility] [address] [place], [address] ECRCL 72.87 ml/min Normal 50-250 [facility] Comment on above: Performed By: #### L 500.4050, L100.0100 ####[facility] [address] [place], [address] GAP 14 Normal 5-15 [facility] Comment on above: Performed By: #### L 500.4050, L100.0100 ####[facility] [address] [place], [address] GFR/1.73 sq M.predicted among non-blacks MDRD (S/P/Bld) [Vol rate/Area] 94 mL/min/{1.73_m2} Normal >60 [facility] Comment on above: Result Comment: mL/m in/1.73m2 CKD-EPI Creatinine Equation (2020) Performed By: #### L 500.4050, L100.0100 ####[facility] [address] [place], [address] Globulin (S) [Mass/Vol] 3.4 g/dL Normal 2.2-4.2 [facility] Comment on above: Performed By: #### L 500.4050, L100.0100 ####[facility] [address] [place], [address] Glucose [Mass/Vol] 83 mg/dL Normal 70-99 [facility] Comment on above: Performed By: #### L 500.4050, L100.0100 ####[facility] [address] [place], [address] Potassium [Moles/Vol] 4.4 mmol/L Normal 3.3-5.1 [facility] Comment on above: Performed By: #### L 500.4050, L100.0100 ####[facility] [address] [place], [address] Sodium [Moles/Vol] 140 mmol/L Normal 133-145 [facility] Comment on above: Performed By: #### L 500.4050, L100.0100 ####[facility] [address] [place], [address] T PROT 6.9 g/dL Normal 5.9-8.4 [facility] Comment on above: Performed By: #### L 500.4050, L100.0100 ####[facility] [address] [place], [place], [address] Urea nitrogen [Mass/Vol] 11 mg/dL Normal 4-19 [facility] Comment on above: Performed By: #### L 500.4050, L100.0100 ####[facility] [address] [place], [address] Consultation - Intensiviston 03-15-2025 Consultation - Golf Course Manager Normal [facility] Eosinophil percentageOrdered By: Sudhir Izquierdo on 03-15-2025 Eosinophils/100 WBC (Bld) 0.3 % 0-5 [facility] Erythrocyte distribution wid th ratioOrdered By: Sudhir Izquierdo on 03-15-2025 Erythrocyte distribution width (RBC) [Ratio] 14.6 % 11.6-14.6 [facility] Erythrocyte distribution wid th standard deviationOrdered By: Sudhir Izquierdo on 03-15-2025 Erythrocyte distribution width (RBC) [Ratio] 48.1 fl High 35.1-43.9 [facility] Glomerular filtration rate ( GFR) estimation/1.73 sq m using serum, plasma, or whole bOrdered By: Sudhir Izquierdo on 03-15-2025 GFR/1.73 sq M.predicted among non-blacks MDRD (S/P/Bld) [Vol rate/Area] 94 mL/min/{1.73_m2} >60 [facility] Gram stainOrdered By: Gonzalo Sebastian on 03-15-2025 Microscopic observation Gram stain Nom (Unsp spec) [facility] HISTORY PHYSICALon HISTORY PHYSICAL HNO ID: [id number] Author: CURT PAEZ APRN.CNP Service: Critical Care Author Type: Nurse Practitioner Type: H&P Filed: 03/16/2025 00:38 Note Text: [facility] PULMONARY [facility] CRITICAL CARE SERVICE DATE: March 15, 2025 SERVICE TIME: 8:49 PM Consulting Doctor: Dr. Ana Paula LOTT - [facility] CHIEF COMPLAINT: Acute on chronic hypoxic respiratory failure, severe sepsis HPI: This 59 year old female who came to [facility] today from [facility] for acute on chronic hypoxic respiratory failure requiring intubation and ventilator dependence. Patient has a history of alcoholic pancreatitis. 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 She was recently admitted to [facility] where she was seen by GI specialist Dr. Garrido and had a pancreatic stent placed on Thursday. Per report from patient, she had been having worsening epigastric pain since then. She denied infectious symptoms, shortness of breath, chest pain, urinary symptoms, diarrhea, or constipation. She has a history of COPD and is on 5 L nasal cannula at baseline. Patient went to [facility] on 03/13 for this epigastric pain. She was found to have acute on chronic pancreatitis. CT of the abdomen showed a stent in the body of the pancreas extending into the head and 2nd/3rd portion of the duodenum, unchanged. They did note peripancreatic inflammation of the body and head which was new compared to previous CT scan. Given her recent stent placement at [facility], initiation of transfer made and was accepted. Unfortunately, no bed available at that time therefore patient admitted to [facility] for pain management and fluid resuscitation. While admitted, patient respiratory status continued to worsen. She required high flow nasal cannula and subsequently intubation while in their ICU. Per report, patient unable to be adequately oxygenated and more emergent transfer was sought out. Patient able to be transferred to regional [facility] was contacted. Patient was discussed extensively with physician and ICU team here at [facility]. Patient ultimately accepted for transfer. Upon arrival to the ICU, patient awake and appropriate on the ventilator. She is on Levophed and Vasopressin which is new from previous report earlier today. She is oxygenating adequately on vent settings. Will obtain an ABG and adjust vent accordingly. According to report from critical care transport, patient became increasingly hypotensive despite Levophed running upon their arrival to OSH and was then started on vasopressin. Family en route to [facility]. Orders placed. PAST MEDICAL HISTORY: SEE CHRONIC ISSUES: PAST MEDICAL HISTORY Diagnosis Date Acute exacerbation [...] Stage 3 severe COPD by GOLD classification ([facility]) 2018 Tobacco use greater than 30 years [...] Hypertension Brother Lung Cancer Brother Social History Toba (more content not included)... Normal [facility] Hematocrit Auto (Bld) [Volum e fraction]Ordered By: Sudhir Izquierdo on 03-15-2025 Hematocrit (Bld) [Volume fraction] 37.1 % 37-47 [facility] Hemoglobin measurementOrdere d By: Sudhir Izquierdo on 03-15-2025 Hemoglobin (Bld) [Mass/Vol] 10.9 g/dL Low 12.0-15.0 [facility] [facility] Immature granulocytes/100 WB C Auto (Bld)Ordered By: Sudhir Izquierdo on 03-15-2025 Immature granulocytes/100 WBC (Bld) 3.800 % High 0.0-0.9 [facility] L503.7505on 03-15-2025 Natriuretic peptide B (Bld) [Mass/Vol] 4257 pg/mL High <=900 [facility] Comment on above: Result Comment: Hear t Failure Unlikely: < 300 pg/mLHeart Failure Likely< 50 Years: > 450 pg/mL50-75 Years: > 900 pg/mL>75 Years: > 1800 pg/mL Performed By: #### L 503.7505 ####[facility] [address] [place], [place], [address] L509.7001on 03-15-2025 Procalcitonin 0.28 ng/mL High <=0.10 [facility] Comment on above: Result Comment: Inte rpretation:<0.10-0.25 ng/mL: Antibiotic therapy discouraged. Bacterialinfection unlikely.0.25-0.50 ng/mL: Antibiotic therapy encouraged. Bacterialinfection possible.>0.50 ng/mL: Antibiotic therapy strongly encouraged.Suggestive of presence of bacterial infection.PCT should always be interpreted in the clinical context ofthe patient. Therefore, clinicians should use the PCTresults in conjunction with other laboratory findings andclinical signs of the patient. Performed By: #### L 509.7006 ####[facility] [address] [place], [place], [address] MCV (mean corpuscular volume ) determinationOrdered By: Sudhir Izquierdo on 03-15-2025 MCV (RBC) [Entitic vol] 89.4 fL 81-99 [facility] Mean corpuscular hemoglobin (MCH) determinationOrdered By: Sudhir Izquierdo on 03-15-2025 MCH (RBC) [Entitic mass] 26.3 pg Low 27.0-32.0 [facility] Measurement, pHOrdered By: Nathalia Izquierdo on 03-15-2025 pH (Unsp spec) 7.26 [pH] Low 7.35-7.45 [facility] Microbial respiratory cultur eOrdered By: Gonzalo Sebastian on 03-15-2025 Microorganism identified Cx Nom (Unsp spec) Streptococcus pneumoniae Abnormal [facility] Microorganism identified Cx Nom (Unsp spec) Staphylococcus aureus Abnormal [facility] Monocyte percentageOrdered B y: Sudhir Izquierdo on 03-15-2025 Monocytes/100 WBC (Bld) 6.1 % 0-10 [facility] Natriuretic peptide.B prohor marium N-Terminal [Mass/volume] in Serum or PlasmaOrdered By: Jackson Chopra on 03-15-2025 Natriuretic peptide.B prohormone N-Terminal [Mass/Vol] 4257 pg/mL High <900 [facility] Neutrophil percentageOrdered By: Sudhir Izquierdo on 03-15-2025 Neutrophils/100 WBC (Bld) 83.6 % High 47-70 [facility] No Panel InformationOrdered By: Sudhir Izquierdo on 03-15-2025 ART [facility] R Radial [facility] AC [facility] ET Tube [facility] 450.0 mL [facility] 16 [facility] 12 [facility] 17:53:45 [facility] BROWN [facility] Yes [facility] 18 U/L <32 [facility] Platelet countOrdered By: Rosana Izquierdo on 03-15-2025 Platelets (Bld) [#/Vol] 315 10*3/uL 150-450 [facility] Potassium measurement (mass/ volume)Ordered By: Sudhir Izquierdo on 03-15-2025 Potassium (Unsp spec) [Mass/Vol] 4.4 mmol/L 3.3-5.1 [facility] Procalcitonin [Mass/volume] in Serum or Plasma by ImmunoassayOrdered By: Gonzalo Sebastian on 03-15-2025 Procalcitonin IA [Mass/Vol] 0.28 ng/mL High <0.11 [facility] RBC Auto (Bld) [#/Vol]Ordere d By: Sudhir Izquierdo on 03-15-2025 RBC (Bld) [#/Vol] 4.15 10*6/uL Low 4.2-5.4 [facility] Serum creatinine measurement (mass/volume)Ordered By: Sudhir Izquierdo on 03-15-2025 Creatinine [Mass/Vol] 0.73 mg/dL 0.70-1.20 [facility] Serum globulin measurementOr dered By: Sudhir Izquierdo on 03-15-2025 Globulin (S) [Mass/Vol] 3.4 g/dL 2.2-4.2 [facility] Serum glucose measurement (m ass/volume)Ordered By: Sudhir Izquierdo on 03-15-2025 Glucose [Mass/Vol] 83 mg/dL 70-99 [facility] Serum or plasma alanine pimentel otransferase (ALT) measurementOrdered By: Sudhir Izquierdo on 03-15-2025 ALT [Catalytic activity/Vol] 24 U/L <35 [facility] Serum or plasma albumin esthela urement (mass/volume)Ordered By: Sudhir Izquierdo on 03-15-2025 Albumin [Mass/Vol] 3.5 g/dL 3.4-4.8 [facility] Serum or plasma albumin/glob ulin mass ratioOrdered By: Sudhir Izquierdo on 03-15-2025 Albumin/Globulin [Mass ratio] 1.0 {ratio} 0.9-2.4 [facility] Serum or plasma alkaline jose sphatase measurementOrdered By: Sudhir Izquierdo on 03-15-2025 ALP [Catalytic activity/Vol] 191 U/L High 35-104 [facility] Serum or plasma calcium esthela urement (mass/volume)Ordered By: Sudhir Izquierdo on 03-15-2025 Calcium [Mass/Vol] 9.4 mg/dL 7.6-11.0 [facility] Serum or plasma urea nitroge n measurement (mass/volume)Ordered By: Sudhir Izquierdo on 03-15-2025 Urea nitrogen [Mass/Vol] 11 mg/dL 4-19 [facility] Sodium levelOrdered By: Sebastian Izquierdo on 03-15-2025 Sodium [Moles/Vol] 140 mmol/L 133-145 [facility] Total carbon dioxide measure mentOrdered By: Sudhir Izquierdo on 03-15-2025 CO2 [Moles/Vol] 29 mmol/L [facility] Total proteinOrdered By: Luis Izquierdo on 03-15-2025 Protein [Mass/Vol] 6.9 g/dL 5.9-8.4 [facility] Urine Cultureon 03-15-2025 URC Mixed Gram Positive Organisms [place] Count 80,000-100,000 MIXC Mixed contaminants. Submit a new specimen if indicated. Normal [facility] Comment on above: Performed By: #### M 100.2200 ####[facility] [address] [place], [place], [id number] White blood cell (WBC) count Ordered By: Sudhir Izquierdo on 03-15-2025 WBC (Bld) [#/Vol] 20.8 10*3/uL High 4.4-11.0 [facility] XR ABDOMEN 1V SUPINEon 03-15 XR ABDOMEN 1V SUPINE * * *Final Report* * * DATE OF EXAM: Mar 15 2025 11:50PM [id number] - XR ABDOMEN 1V SUPINE / PROCEDURE REASON: Evaluate tube, line or lead position * * * * Physician Interpretation * * * * EXAMINATION: CHEST RADIOGRAPH (PORTABLE UPRIGHT SINGLE VIEW AP), portable AP upright abdomen Exam Date/Time: 03/15/2025 11:50 PM CLINICAL HISTORY: Evaluate tube, line, or lead position (accession [id number]), Evaluate tube, line or lead position (accession [id number]) , establish chronic pancreatitis. MQ: XCPR_5 Comparison: 12/19/2024 RESULT: Lines, tubes, and devices: Tip of ET tube is 5 cm above the sterling. Enteric tube with tip in port beyond the gastroesophageal junction in the region of the stomach with the tip directed to the left. Lungs and pleura: Blunting of the costophrenic angles with hazy gradation of opacity in the left that obscures the hemidiaphragm and lower heart border. Skinfold artifacts. No pneumothorax. Nonspecific retrocardiac opacity. No visible consolidation. Cardiomediastinal silhouette: Stable nonenlarged cardiomediastinal silhouette. Other: No acute congestion. Pancreatic stent. No visible bowel distention or evidence of pneumoperitoneum. IMPRESSION: 1. Satisfactory ET tube and enteric tubes. 2. Bilateral pleural effusions with nonspecific retrocardiac opacity. Specialist Managers: BABATUNDE Transcribe Date/Time: Mar 16 2025 1:30A Dictated by : SUELLEN SÁNCHEZ MD This examination was interpreted and the report reviewed and electronically signed by: SUELLEN SÁNCHEZ MD on Mar 16 2025 1:33AM EST [id number] [facility] XR CHEST 1V FRONTAL PORTon 0 03-15-2025 XR CHEST 1V FRONTAL PORT * * *Final Report* * * DATE OF EXAM: Mar 15 2025 11:50PM [id number] [id number] - XR CHEST 1V FRONTAL PORT / PROCEDURE REASON: Evaluate tube, line, or lead position * * * * Physician Interpretation * * * * EXAMINATION: CHEST RADIOGRAPH (PORTABLE UPRIGHT SINGLE VIEW AP), portable AP upright abdomen Exam Date/Time: 03/15/2025 11:50 PM CLINICAL HISTORY: Evaluate tube, line, or lead position (accession [id number]), Evaluate tube, line or lead position (accession [id number]) , establish chronic pancreatitis. MQ: XCPR_5 Comparison: 12/19/2024 RESULT: Lines, tubes, and devices: Tip of ET tube is 5 cm above the sterling. Enteric tube with tip in port beyond the gastroesophageal junction in the region of the stomach with the tip directed to the left. Lungs and pleura: Blunting of the costophrenic angles with hazy gradation of opacity in the left that obscures the hemidiaphragm and lower heart border. Skinfold artifacts. No pneumothorax. Nonspecific retrocardiac opacity. No visible consolidation. Cardiomediastinal silhouette: Stable nonenlarged cardiomediastinal silhouette. Other: No acute congestion. Pancreatic stent. No visible bowel distention or evidence of pneumoperitoneum. IMPRESSION: 1. Satisfactory ET tube and enteric tubes. 2. Bilateral pleural effusions with nonspecific retrocardiac opacity. Specialist Managers: BABATUNDE Transcribe Date/Time: Mar 16 2025 1:30A Dictated by : SUELLEN SÁNCHEZ MD This examination was interpreted and the report reviewed and electronically signed by: SUELLEN SÁNCHEZ MD on Mar 16 2025 1:33AM EST [id number] Normal [facility] CBC W/Diff, Automatedon 06- Absolute Lymph 1.97 X10 3/uL Normal 0.83-4.51 [facility] Comment on above: Performed By: #### L 100.0100 ####[facility] [address] [place], [address] Absolute Neut 17.9 X10 3/uL High 2.0-7.7 [facility] Comment on above: Performed By: #### L 100.0100 ####[facility] [address] [place], [address] Basophils/100 WBC (Bld) 0.4 % Normal 0-1 [facility] Comment on above: Performed By: #### L 100.0100 ####[facility] [address] [place], [address] Eosinophils/100 WBC (Bld) 1.2 % Normal 0-5 [facility] Comment on above: Performed By: #### L 100.0100 ####[facility] [address] [place], [address] Erythrocyte distribution width (RBC) [Ratio] 14.8 % High 11.6-14.6 [facility] Comment on above: Performed By: #### L 100.0100 ####[facility] [address] [place], [address] Hematocrit (Bld) [Volume fraction] 33.5 % Low 37-47 [facility] Comment on above: Performed By: #### L 100.0100 ####[facility] [address] [place], [address] Hemoglobin (Bld) [Mass/Vol] 9.9 g/dL Low 12.0-15.0 [facility] Comment on above: Performed By: #### L 100.0100 ####[facility] [address] [place], [address] IG% 1.300 High 0.0-0.9 [facility] Comment on above: Result Comment: IG% - Immature Granulocytes (promyelocytes, myelocytes andmetamyelocytes) > 1% indicates that a LEFT SHIFT is Present. Performed By: #### L 100.0100 ####[facility] [address] [place], [address] Lymphocytes/100 WBC (Bld) 9.0 % Low 19-41 [facility] Comment on above: Performed By: #### L 100.0100 ####[facility] [address] [place], [address] MCH (RBC) [Entitic mass] 26.3 pg Low 27.0-32.0 [facility] Comment on above: Performed By: #### L 100.0100 ####[facility] [address] [place], [address] MCHC (RBC) [Mass/Vol] 29.6 g/dL Low 32-36 [facility] Comment on above: Performed By: #### L 100.0100 ####[facility] [address] [place], [address] MCV (RBC) [Entitic vol] 88.9 fL Normal 81-99 [facility] Comment on above: Performed By: #### L 100.0100 ####[facility] [address] [place], [address] Monocytes/100 WBC (Bld) 6.4 % Normal 0-10 [facility] Comment on above: Performed By: #### L 100.0100 ####[facility] [address] [place], [address] Neutrophils/100 WBC (Bld) 81.7 % High 47-70 [facility] Comment on above: Performed By: #### L 100.0100 ####[facility] [address] [place], [address] Nucleated RBC (Bld) [#/Vol] 0 10*3/uL Normal 0-5 [facility] Comment on above: Performed By: #### L 100.0100 ####[facility] [address] [place], [address] Platelet mean volume (Bld) [Entitic vol] 10.8 fL Normal 6.2-12.0 [facility] Comment on above: Performed By: #### L 100.0100 ####[facility] [address] [place], [address] Platelets (Bld) [#/Vol] 263 10*3/uL Normal 150-450 [facility] Comment on above: Performed By: #### L 100.0100 ####[facility] [address] [place], [address] RBC (Bld) [#/Vol] 3.77 10*6/uL Low 4.2-5.4 [facility] Comment on above: Performed By: #### L 100.0100 ####[facility] [address] [place], [address] RDW SD 48.7 fl High 35.1-43.9 [facility] Comment on above: Performed By: #### L 100.0100 ####[facility] [address] [place], [address] WBC (Bld) [#/Vol] 21.9 10*3/uL High 4.4-11.0 [facility] Comment on above: Performed By: #### L 100.0100 ####[facility] [address] [place], [address] Comprehensive Metabolic Prof il 03-14-2025 Albumin [Mass/Vol] 3.5 g/dL Normal 3.4-4.8 [facility] Comment on above: Performed By: #### L 500.4050, L501.2450 ####[facility] [address] [place], [address] Albumin/Globulin [Mass ratio] 1.1 {ratio} Normal 0.9-2.4 [facility] Comment on above: Performed By: #### L 500.4050, L501.2450 ####[facility] [address] [place], [address] ALK PHOS 188 U/L High 35-104 [facility] Comment on above: Performed By: #### L 500.4050, L501.2450 ####[facility] [address] [place], [address] ALT [Catalytic activity/Vol] 29 U/L Normal <=34 [facility] Comment on above: Performed By: #### L 500.4050, L501.2450 ####[facility] [address] [place], [address] AST [Catalytic activity/Vol] 22 U/L Normal <=31 [facility] Comment on above: Performed By: #### L 500.4050, L501.2450 ####[facility] [facility] [address] [place], [address] Bilirubin [Mass/Vol] 0.23 mg/dL Normal 0.00-1.30 [facility] Comment on above: Performed By: #### L 500.4050, L501.2450 ####[facility] [address] [place], [address] BUN/CRE 20.6 RATIO High 10-20 [facility] Comment on above: Performed By: #### L 500.4050, L501.2450 ####[facility] [address] [place], [address] Calcium [Mass/Vol] 9.1 mg/dL Normal 7.6-11.0 [facility] Comment on above: Performed By: #### L 500.4050, L501.2450 ####[facility] [address] [place], [address] Chloride [Moles/Vol] 101 mmol/L Normal 98-108 [facility] Comment on above: Performed By: #### L 500.4050, L501.2450 ####[facility] [address] [place], [address] CO2 [Moles/Vol] 24.2 mmol/L Normal 21.0-32.0 [facility] Comment on above: Performed By: #### L 500.4050, L501.2450 ####[facility] [address] [place], [address] Creatinine [Mass/Vol] 0.90 mg/dL Normal 0.70-1.20 [facility] Comment on above: Performed By: #### L 500.4050, L501.2450 ####[facility] [address] [place], [address] ECRCL 59.11 ml/min Normal 50-250 [facility] Comment on above: Performed By: #### L 500.4050, L501.2450 ####[facility] [address] [place], [address] GAP 15 Normal 5-15 [facility] Comment on above: Performed By: #### L 500.4050, L501.2450 ####[facility] [address] [place], [address] GFR/1.73 sq M.predicted among non-blacks MDRD (S/P/Bld) [Vol rate/Area] 73 mL/min/{1.73_m2} Normal >60 [facility] Comment on above: Result Comment: mL/m in/1.73m2 CKD-EPI Creatinine Equation (2020) Performed By: #### L 500.4050, L501.2450 ####[facility] [address] [place], [address] Globulin (S) [Mass/Vol] 3.1 g/dL Normal 2.2-4.2 [facility] Comment on above: Performed By: #### L 500.4050, L501.2450 ####[facility] [address] [place], [address] Glucose [Mass/Vol] 64 mg/dL Low 70-99 [facility] Comment on above: Performed By: #### L 500.4050, L501.2450 ####[facility] [address] [place], [address] Potassium [Moles/Vol] 4.1 mmol/L Normal 3.3-5.1 [facility] Comment on above: Performed By: #### L 500.4050, L501.2450 ####[facility] [address] [place], [address] Sodium [Moles/Vol] 140 mmol/L Normal 133-145 [facility] Comment on above: Performed By: #### L 500.4050, L501.2450 ####[facility] [address] [place], [address] T PROT 6.6 g/dL Normal 5.9-8.4 [facility] Comment on above: Performed By: #### L 500.4050, L501.2450 ####[facility] [address] [place], [address] Urea nitrogen [Mass/Vol] 19 mg/dL Normal 4-19 [facility] Comment on above: Performed By: #### L 500.4050, L501.2450 ####[facility] [address] [place], [address] Lipaseon 03-14-2025 Lipase [Catalytic activity/Vol] 362 U/L High 13-75 [facility] Comment on above: Result Comment: Jenny capellan note:LIPASE revised reference range effective 23.New Lipase methodology. Expected to produce lower valuesthan the previous assay method.NEW Reference Range: 13 - 75 U/L Performed By: #### L 500.4050, L501.2450 ####[facility] [address] [place], [place], [address] Abdomen/Pelvis W IV Cont ONL Yon 03-13-2025 Abdomen/Pelvis W IV Cont ONLY Normal [facility] Absolute lymphocyte countOrd ered By: Macario Alex on 03-13-2025 Lymphocytes Auto (Unsp spec) [#/Vol] 1.85 10*3/uL 0.83-4.51 [facility] Alcohol, Blood (Medical)-Ser umon 03-13-2025 SERUM ETOH < 10.1 Normal <=10.0 [facility] Comment on above: Result Comment: This test is for medical purposes only. The legaldefinition of intoxication varies according to local law. Performed By: #### L 501.9100 ####[facility] [address] [place], [address] Anion gap in Serum or Plasma Ordered By: Macario Alex on 03-13-2025 Anion gap [Moles/Vol] 14 mmol/L 5-15 [facility] Automated lymphocyte count a s percentage of total leukocytesOrdered By: Macario Alex on 03-13-2025 Lymphocytes/100 WBC Auto (Unsp spec) 6.3 % Low 19-41 [facility] BUN/creatinine ratioOrdered By: Macario Alex on 03-13-2025 Urea nitrogen/Creatinine [Mass ratio] 16.9 mg/mg 10- [facility] Basic Metabolic Profile (BMP )on 03-13-2025 BUN/CRE 16.9 RATIO Normal - [facility] Comment on above: Performed By: #### L 500.3400, L500.2500, L501.2450 ####[facility] [address] [place], [address] Calcium [Mass/Vol] 9.5 mg/dL Normal 7.6-11.0 [facility] Comment on above: Performed By: #### L 500.3400, L500.2500, L501.2450 ####[facility] [address] [place], [address] Chloride [Moles/Vol] 92 mmol/L Low 98-108 [facility] Comment on above: Performed By: #### L 500.3400, L500.2500, L501.2450 ####[facility] [address] [place], [address] CO2 [Moles/Vol] 28.0 mmol/L Normal 21.0-32.0 [facility] Comment on above: Performed By: #### L 500.3400, L500.2500, L501.2450 ####[facility] [address] [place], [address] Creatinine [Mass/Vol] 0.84 mg/dL Normal 0.70-1.20 [facility] Comment on above: Performed By: #### L 500.3400, L500.2500, L501.2450 ####[facility] [address] [place], [address] ECRCL 58.18 ml/min Normal 50-250 [facility] Comment on above: Performed By: #### L 500.3400, L500.2500, L501.2450 ####[facility] [address] [place], [address] GAP 14 Normal 5-15 [facility] Comment on above: Performed By: #### L 500.3400, L500.2500, L501.2450 ####[facility] [address] [place], [address] GFR/1.73 sq M.predicted among non-blacks MDRD (S/P/Bld) [Vol rate/Area] 79 mL/min/{1.73_m2} Normal >60 [facility] Comment on above: Result Comment: mL/m in/1.73m2 CKD-EPI Creatinine Equation (2020) Performed By: #### L 500.3400, L500.2500, L501.2450 ####[facility] [address] [place], [address] Glucose [Mass/Vol] 100 mg/dL High 70-99 [facility] Comment on above: Performed By: #### L 500.3400, L500.2500, L501.2450 ####[facility] [address] [place], [address] Potassium [Moles/Vol] 3.6 mmol/L Normal 3.3-5.1 [facility] Comment on above: Performed By: #### L 500.3400, L500.2500, L501.2450 ####[facility] [address] [place], [address] Sodium [Moles/Vol] 134 mmol/L Normal 133-145 [facility] Comment on above: Performed By: #### L 500.3400, L500.2500, L501.2450 ####[facility] [address] [place], [address] Urea nitrogen [Mass/Vol] 14 mg/dL Normal 4-19 [facility] Comment on above: Performed By: #### L 500.3400, L500.2500, L501.2450 ####[facility] [address] [place], [address] Basophil percentageOrdered B y: Macario Alex on 03-13-2025 Basophils/100 WBC (Bld) 0.4 % 0-1 [facility] Bilirubin Test strip Ql (U)O rdered By: Macario Alex on 03-13-2025 Bilirubin Ql (U) Negative Negative [facility] Bilirubin directOrdered By: Macario Alex on 03-13-2025 Bilirubin.direct [Mass/Vol] 0.29 mg/dL 0.00-0.30 [facility] Bilirubin, totalOrdered By: Macario Alex on 03-13-2025 Bilirubin [Mass/Vol] 0.49 mg/dL 0.00-1.30 [facility] Blood manual differential co mment interpretation (narrative result)Ordered By: Macario Alex on 03-13-2025 Manual differential comment Geovany (Bld) [Interp] SCANNED [facility] CBC W/Diff, Automatedon 02-26 SMEAR COMMENT SCANNED Normal [facility] Comment on above: Result Comment: NEUT ROPHILIA NOTEDMONOCYTOSIS NOTED Performed By: #### L 503.6005, L100.0100 ####[facility] [address] [facility] [place], [address] Carbon dioxide, total [Moles /volume] in Central venous bloodOrdered By: Macario Alex on 03-13-2025 CO2 [Moles/Vol] 28.0 mmol/L 21.0-32.0 [facility] Chest PA and Lateralon 03-13 Chest PA and Lateral Normal [facility] Chloride assayOrdered By: David Alex on 03-13-2025 Chloride [Moles/Vol] 92 mmol/L Low 98-108 [facility] Emergency Department Summary on 03-13-2025 Emergency Department Summary Normal [facility] Eosinophil percentageOrdered By: Macario Alex on 03-13-2025 Eosinophils/100 WBC (Bld) 0.5 % 0-5 [facility] Erythrocyte distribution wid th ratioOrdered By: Macario Alex on 03-13-2025 Erythrocyte distribution width (RBC) [Ratio] 14.7 % High 11.6-14.6 [facility] Erythrocyte distribution wid th standard deviationOrdered By: Macariodee Elise on 03-13-2025 Erythrocyte distribution width (RBC) [Ratio] 46.1 fl High 35.1-43.9 [facility] Glomerular filtration rate ( GFR) estimation/1.73 sq m using serum, plasma, or whole bOrdered By: Macario Tab on 03-13-2025 GFR/1.73 sq M.predicted among non-blacks MDRD (S/P/Bld) [Vol rate/Area] 79 mL/min/{1.73_m2} >60 [facility] Hematocrit Auto (Bld) [Volum e fraction]Ordered By: [facility] on 03-13-2025 Hematocrit (Bld) [Volume fraction] 35.9 % Low 37-47 [facility] Hemoglobin measurementOrdere d By: [facility]ierraGosia on 03-13-2025 Hemoglobin (Bld) [Mass/Vol] 11.2 g/dL Low 12.0-15.0 [facility] Immature granulocytes/100 WB C Auto (Bld)Ordered By: [facility] Hospital[facility] on 03-13-2025 Immature granulocytes/100 WBC (Bld) 1.200 % High 0.0-0.9 [facility] Ketones Test strip Ql (U)Ord ered By: [facility] on 03-13-2025 Ketones Ql (U) Negative Negative [facility] Lactic Acidon 03-13-2025 Lactate [Moles/Vol] mmol/L Normal 0.0-2.0 [facility] Comment on above: Order Comment: Y Performed By: #### L 503.6005, L100.0100 ####[facility] [address] [place], [place], [address] Lipaseon 03-13-2025 Lipase [Catalytic activity/Vol] 378 U/L High 13-75 [facility] Comment on above: Result Comment: Jenny capellan note:LIPASE revised reference range effective 23.New Lipase methodology. Expected to produce lower valuesthan the previous assay method.NEW Reference Range: 13 - 75 U/L Performed By: #### L 500.3400, L500.2500, L501.2450 ####[facility] [address] [place], [address] Liver Profileon 03-13-2025 Albumin [Mass/Vol] 3.8 g/dL Normal 3.4-4.8 [facility] Comment on above: Performed By: #### L 500.3400, L500.2500, L501.2450 ####[facility] [address] [place], [address] ALK PHOS 149 U/L High 35-104 [facility] Comment on above: Performed By: #### L 500.3400, L500.2500, L501.2450 ####[facility] [address] [place], [address] ALT [Catalytic activity/Vol] 38 U/L High <=34 [facility] Comment on above: Performed By: #### L 500.3400, L500.2500, L501.2450 ####[facility] [address] [place], [address] AST [Catalytic activity/Vol] 21 U/L Normal <=31 [facility] Comment on above: Performed By: #### L 500.3400, L500.2500, L501.2450 ####[facility] [address] [place], [address] Bilirubin [Mass/Vol] 0.49 mg/dL Normal 0.00-1.30 [facility] Comment on above: Performed By: #### L 500.3400, L500.2500, L501.2450 ####[facility] [address] [place], [address] Bilirubin.direct [Mass/Vol] 0.29 mg/dL Normal 0.00-0.30 [facility] Comment on above: Performed By: #### L 500.3400, L500.2500, L501.2450 ####[facility] [address] [place], [address] Globulin (S) [Mass/Vol] 3.2 g/dL Normal 2.2-4.2 [facility] Comment on above: Performed By: #### L 500.3400, L500.2500, L501.2450 ####[facility] [address] [place], [address] T PROT 7.0 g/dL Normal 5.9-8.4 [facility] Comment on above: Performed By: #### L 500.3400, L500.2500, L501.2450 ####[facility] [address] [place], [address] MCV (mean corpuscular volume ) determinationOrdered By: Macario Alex on 03-13-2025 MCV (RBC) [Entitic vol] 86.1 fL 81-99 [facility] Mean corpuscular hemoglobin (MCH) determinationOrdered By: Macario Alex on 03-13-2025 MCH (RBC) [Entitic mass] 26.9 pg Low 27.0-32.0 [facility] Monocyte percentageOrdered B y: Macario Alex on 03-13-2025 Monocytes/100 WBC (Bld) 8.1 % 0-10 [facility] Mucus LM Ql (Urine sed)Order ed By: Macario Alex on 03-13-2025 Mucus Ql (Urine sed) 0 SEEN /hpf [facility] Neutrophil percentageOrdered By: Macario Alex on 03-13-2025 Neutrophils/100 WBC (Bld) 83.5 % High 47-70 [facility] Nitrite Test strip Ql (U)Ord ered By: Macario Alex on 03-13-2025 Nitrite Ql (U) Negative Negative [facility] No Panel InformationOrdered By: Macario Alex on 03-13-2025 21 U/L <32 [facility] Platelet countOrdered By: David Alex on 03-13-2025 Platelets (Bld) [#/Vol] 277 10*3/uL 150-450 [facility] Potassium measurement (mass/ volume)Ordered By: Macario Alex on 03-13-2025 Potassium (Unsp spec) [Mass/Vol] 3.6 mmol/L 3.3-5.1 [facility] Protein Test strip Ql (U)Ord ered By: Macario Alex on 03-13-2025 Protein Ql (U) 30 mg/dl High Negative [facility] RBC Auto (Bld) [#/Vol]Ordere d By: Macario Alex on 03-13-2025 RBC (Bld) [#/Vol] 4.17 10*6/uL Low 4.2-5.4 [facility] Serum creatinine measurement (mass/volume)Ordered By: Macario Alex on 03-13-2025 Creatinine [Mass/Vol] 0.84 mg/dL 0.70-1.20 [facility] Serum globulin measurementOr dered By: Macario Alex on 03-13-2025 Globulin (S) [Mass/Vol] 3.2 g/dL 2.2-4.2 [facility] Serum glucose measurement (m ass/volume)Ordered By: Macario Alex on 03-13-2025 Glucose [Mass/Vol] 100 mg/dL High 70-99 [facility] Serum or plasma alanine pimentel otransferase (ALT) measurementOrdered By: Macario Alex on 03-13-2025 ALT [Catalytic activity/Vol] 38 U/L High <35 [facility] Serum or plasma albumin esthela urement (mass/volume)Ordered By: Macario Elise on 03-13-2025 Albumin [Mass/Vol] 3.8 g/dL 3.4-4.8 [facility] Serum or plasma alkaline jose sphatase measurementOrdered By: Macario Alex on 03-13-2025 ALP [Catalytic activity/Vol] 149 U/L High 35-104 [facility] Serum or plasma calcium esthela urement (mass/volume)Ordered By: Macario Elise on 03-13-2025 Calcium [Mass/Vol] 9.5 mg/dL 7.6-11.0 [facility] Serum or plasma ethanol esthela urement (mass/volume)Ordered By: Macario Elise on 03-13-2025 Ethanol [Mass/Vol] mg/dL <10.1 [facility] Serum or plasma urea nitroge n measurement (mass/volume)Ordered By: Macario Alex on 03-13-2025 Urea nitrogen [Mass/Vol] 14 mg/dL 4-19 [facility] Sodium levelOrdered By: Beto Alex on 03-13-2025 Sodium [Moles/Vol] 134 mmol/L 133-145 [facility] Squamous epithelial cells de tection in urine sediment by light microscopyOrdered By: Macario Alex on 03-13-2025 Epithelial cells.squamous LM Ql (Urine sed) 0-5 SEEN /hpf 5-10 [facility] Total proteinOrdered By: Gumaro Alex on 03-13-2025 Protein [Mass/Vol] 7.0 g/dL 5.9-8.4 [facility] Urinalysis, Completeon 03-13 EPI,SQUAMOUS 0-5 SEEN Normal 5-10 [facility] Comment on above: Order Comment: CLEAN CATCH Performed By: #### L 400.0001 ####[facility] [address] [place], [address] RBC 0-5 SEEN Normal 0-5 [facility] Comment on above: Order Comment: CLEAN CATCH Performed By: #### L 400.0001 ####[facility] [address] [place], [address] WBC 5-10 SEEN Normal 0-5 [facility] Comment on above: Order Comment: CLEAN CATCH Performed By: #### L 400.0001 ####[facility] [address] [place], [address] BACTERIA 0 SEEN Normal None Seen [facility] Comment on above: Order Comment: CLEAN CATCH Performed By: #### L 400.0001 ####[facility] [address] [place], [address] Mucus Ql (Urine sed) 0 SEEN Normal [facility] Comment on above: Order Comment: CLEAN CATCH Performed By: #### L 400.0001 ####[facility] [address] [place], [address] Urine clarityOrdered By: Gumaro Alex on 03-13-2025 Clarity (U) Clear Clear [facility] Urine color determinationOrd ered By: Macario Alex on 03-13-2025 Color (U) Straw Yellow [facility] Urine cultureOrdered By: Gumaro Alex on 03-13-2025 Bacteria identified Cx Nom (U) Positive Abnormal [facility] Urine glucose detectionOrder ed By: Macario Alex on 03-13-2025 Glucose Ql (U) Normal mg/dl Normal [facility] Urine leukocyte esterase det ection by dipstickOrdered By: Macario Alex on 03-13-2025 Leukocyte esterase Test strip Ql (U) 100 /ul High Negative [facility] Urine pHOrdered By: Macario Barth on 03-13-2025 pH (U) 7.0 [pH] 5.0 - 8.0 [facility] Urine sediment bacteria coun t by microscopy (number/high power field)Ordered By: Macario Alex on 03-13-2025 Bacteria LM.HPF (Urine sed) [#/Area] 0 /[HPF] None Seen [facility] Urine specific gravity measu rementOrdered By: Macario Alex on 03-13-2025 Specific gravity (U) [Rel density] 1.005 1.002-1.030 [facility] Urine urobilinogen measureme ntOrdered By: Macario Alex on 03-13-2025 Urobilinogen Ql (U) Normal mg/dl Normal [facility] White blood cell (WBC) count Ordered By: Macario Alex on 03-13-2025 WBC (Bld) [#/Vol] 29.2 10*3/uL High 4.4-11.0 [facility] White blood cell countOrdere d By: Macario Ayalat on 03-13-2025 White blood cell count 5-10 SEEN /hpf 0-5 [facility] ANES POSTPROC EVALon 025 ANES POSTPROC EVAL HNO ID: [id number] Author: JOSE MARIA CHAKRABORTY MD Service: ? Author Type: Anesthesiologist Type: Anesthesia Postprocedure Evaluation Filed: 03/10/2025 15:51 Note Text: POST ANESTHESIA EVALUATION NOTE : 1965 Procedure Summary Date: 03/10/25 Room / Location: Gastroenterology Anesthesia Start: 1359 Anesthesia Stop: Procedure: ERCP Diagnosis: Other chronic pancreatitis (HCC) Scheduled Providers: Jane Farrell MD; Jose Maria Chakraborty MD; Vanessa Perez APRN.HADOOP CONSULTANT Responsible Provider: Jose Maria Chakraboryt MD Anesthesia Type: general ASA Status: 3 [...] March 10, 2025 TIME: 3:16 PM CSN: [id number] Normal [facility] ANES PRE-OPon 03-10-2025 ANES PRE-OP HNO ID: [id number] Author: JOSE MARIA CHAKRABORTY MD Service: ? Author Type: Anesthesiologist Type: Anesthesia Preprocedure Evaluation Filed: 03/10/2025 12:26 Note Text: ANESTHESIOLOGY DAY OF SURGERY NOTE : 1965 Procedure Information Date/Time: 03/10/25 1300 Scheduled providers: Jane Farrell MD; Jose Maria Chakraborty MD; Vanessa Perez APRN.HADOOP CONSULTANT Procedure: ERCP Location: Gastroenterology Estimated body mass [...] and consent discussed: yes. Patient / Responsible Constitution Party agrees to proceed: yes Patient / [...] 48 areli (more content not included)... Normal [facility] ERCP Study observation Narra tijosé miguel 03-10-2025 [facility] Radiology Study observation (narrative) Minoo back [facility] NURSING PROGon 03-10-2025 NURSING PROG HNO ID: [id number] Author: JANIS AC RN Service: Gastroenterology Author Type: Registered Nurse Type: Nursing Progress Note Filed: 03/10/2025 17:07 Note Text: Dr Chakraborty anesthesia ok d patient to be discharged Three hot packs given to patient for right arm Normal [facility] NURSING PROG HNO ID: [id number] Author: JANIS AC RN Service: Gastroenterology Author Type: Registered Nurse Type: Nursing Progress Note Filed: 03/10/2025 16:51 Note Text: Patient states her arm where the infiltration occurred it is burning Patient informed to keep an eye on the infiltrated area so a blister does not form of it does go to the Emergency room Normal [facility] NURSING PROG HNO ID: [id number] Author: JANIS AC RN Service: Gastroenterology Author Type: Registered Nurse Type: Nursing Progress Note Filed: 03/10/2025 16:24 Note Text: Right AC IV infiltrated with 100cc IV Propofol large swollen red hard area Hot pack applied Patient crying stating arm hurts patient Gracie and sister Magui spoke to [employer] nurse hospitality manager Reshma Perezmen office number given. Pharmacy called, Zelda pharmacist notified unable to help. Called Drug information line spoke with Milan fallon monitor patient There is no information in regards to amount of time Propofol will take to infuse .Patient is awake alert oriented x3 Normal [facility] NURSING PROG HNO ID: [id number] Author: JANIS AC RN Service: Gastroenterology Author Type: Registered Nurse Type: Nursing Progress Note Filed: 03/10/2025 15:51 Note Text: Dr Chakraborty anesthesia notified patients blood pressure low 73/52 74/51 Albumin 25 grams given Patient awake alert oriented x3 skin warm and dry Normal [facility] NURSING PROG HNO ID: [id number] Author: JANIS AC RN Service: Gastroenterology Author [...] Electronically Signed By: Janis Ac RN Normal [facility] NURSING PROG HNO ID: [id number] Author: ADRIAN EDMOND RN Service: ? Author [...] Adrian Edmond RN In Department: GASTROENTEROLOGY Normal [facility] CNP[facility] Telephone (GASTMN) GRACIE BANUELOS ([id number]) 1965 F Date Time Provider Department 03/07/25 JUAN SENIOR GASTMN During your visit today, we recorded the following information about you: Ejffery Isis 03/07/2025 11:48 AM Signed She stated there was supposed to be a letter or some document to be faxed over to [employer] to help pay for her gas prior to her ERCP on 03/10/25 Email: [email or web address] Are we able to get that sent over for patient? Thank you Juan Mike LPN 03/07/2025 12:29 PM Signed Jane Farrell MD Department of Gastroenterology- [facility] [address] [place] [address] 03/07/2025 Pt. name: Gracie Banuelos 1965 MEDICAL Procedure This is to certify that Gracie Banuelos this is a letter to confirm that Gracie has a procedure at [facility] on 03/10 with an arrival time of 12pm. This appointment needs to have a responsible adult motor coach bus driver to accompany her for transportation to and after her procedure. Sincerely, Isis Long MD 03/07/2025 2:30 PM Signed Patient called, did not receive email. She stated it had to all be in lower case. I resent email Thank you Isis Joe Allergies As of Date: 03/07/2025 Noted Allergy Reaction BACTRIM (SULFAMETHOXAZOLE-TRIME TH*11/28/2022 4 - Hives HYDROCODONE 08/02/2020 9 - Itching PENICILLINS 07/07/2006 14 - Other: See Comments Comments: hives VALIUM (DIAZEPAM) 11/02/2013 14 - Other: See Comments Comments: cross reaction with alcohol addiction Date Reviewed: 01/13/2025 Reviewed by: Soila Easton APRN.CNP - Fully Assessed Reason for Visit: Orders [...] stress female [N39.3] 11/24/2014 HPV test positive [[id number]] 11/24/2014 Alcohol dependence in remission (HCC) [F10.21] 07/10/2015 11/02/2018 Pulm (more content not included)... Normal [facility] Matteo 03-06-2025 ALE Telephone (GAPRA3) GRACIE BANUELOS ([id number]) 1965 F Date Time Provider Department 03/06/25 [...] Date Reviewed: 01/13/2025 Reviewed by: Soila Easton APRN.RN FACULTY - Fully Assessed Reason for Visit: Patient Question [0277] Prescriptions as of 03/06/2025 - gabapentin (NEURONTIN) [...] stress female [N39.3] 11/24/2014 HPV test positive [[id number]] 11/24/2014 Alcohol dependence in remission (HCC) [F10.21] [...] Encounter Status:Closed by RAISA JIMENEZ [facility] ([id number]) 1965 F Date Time Provider Department 03/06/25 JUAN SENIOR During your visit today, we recorded the following information about you: Isis Gil 03/06/2025 9:10 AM Signed Gracie calling #[phone] Patient is calling regarding wanting to speak [...] Date Reviewed: 01/13/2025 Reviewed by: Soila Easton APRN.RN FACULTY - Fully Assessed Reason for Visit: Patient [...] stress female [N39.3] 11/24/2014 HPV test positive [[id number]] 11/24/2014 Alcohol dependence in remission (HCC) [F10.21] [...] of co (more content not included)... [facility] ([id number]) 1965 F Date Time Provider Department 03/06/25 CAITLIN OBRIEN ENMN During your visit today, we recorded the following information about you: Caitlin Obrien, SARWAT 03/06/2025 11:30 AM Signed Attempted to reach [...] Date Reviewed: 01/13/2025 Reviewed by: Soila Easton APRN.RN FACULTY - Fully Assessed Prescriptions as of 03/06/2025 [...] stress female [N39.3] 11/24/2014 HPV test positive [[id number]] 11/24/2014 Alcohol dependence in remission (HCC) [F10.21] [...] Encounter Status:Closed by CAITLIN OBRIEN on 03/06/25 [facility] NURSING PROGon 03-03-2025 NURSING PROG HNO ID: [id number] Author: JAELYN KOTHARI RN Service: ? Author Type: Registered Nurse Type: Nursing Progress Note Filed: 03/03/2025 09:48 Note Text: Attempted to reach the patient at the contact number that they provided [phone] (home) . Unable to speak with patient so without identifying the patient the following information was left on their voice mail: Date of procedure, location and report time A message was left informing the patient/patient customer account representative they must have a responsible adult [...] Number to call with questions or concerns [phone] Number to call to cancel their procedure [phone] Jaelyn Kothari RN Normal [facility] Abdomen/Pelvis W IV Cont ONL Yon 02-26-2025 Abdomen/Pelvis W IV Cont ONLY Normal [facility] Absolute lymphocyte countOrd ered By: Katina Price on 02-26-2025 Lymphocytes Auto (Unsp spec) [#/Vol] 2.50 10*3/uL 0.83-4.51 [facility] Anion gap in Serum or Plasma Ordered By: Katina Price on 02-26-2025 Anion gap [Moles/Vol] 11 mmol/L 5-15 [facility] Automated lymphocyte count a s percentage of total leukocytesOrdered By: Katina Price on 02-26-2025 Lymphocytes/100 WBC Auto (Unsp spec) 20.2 % 19-41 [facility] BUN/creatinine ratioOrdered By: Katina Price on 02-26-2025 Urea nitrogen/Creatinine [Mass ratio] 7.6 mg/mg Low 10-20 [facility] Basophil percentageOrdered B y: Katina Price on 02-26-2025 Basophils/100 WBC (Bld) 1.0 % 0-1 [facility] Bilirubin, totalOrdered By: Katina Price on 02-26-2025 Bilirubin [Mass/Vol] mg/dL 0.00-1.30 [facility] CBC W/Diff, Automatedon 06-0 -2024 Absolute Lymph 2.50 X10 3/uL Normal 0.83-4.51 [facility] Comment on above: Performed By: #### L 501.2450, L100.0100, L500.4050 ####[facility] [address] [place], [address] Absolute Neut 7.9 X10 3/uL High 2.0-7.7 [facility] Comment on above: Performed By: #### L 501.2450, L100.0100, L500.4050 ####[facility] [address] [place], [address] Basophils/100 WBC (Bld) 1.0 % Normal 0-1 [facility] Comment on above: Performed By: #### L 501.2450, L100.0100, L500.4050 ####[facility] [address] [place], [address] Eosinophils/100 WBC (Bld) 6.1 % High 0-5 [facility] Comment on above: Performed By: #### L 501.2450, L100.0100, L500.4050 ####[facility] [address] [place], [address] Erythrocyte distribution width (RBC) [Ratio] 14.6 % Normal 11.6-14.6 [facility] Comment on above: Performed By: #### L 501.2450, L100.0100, L500.4050 ####[facility] [address] [place], [address] Hematocrit (Bld) [Volume fraction] 39.8 % Normal 37-47 [facility] Comment on above: Performed By: #### L 501.2450, L100.0100, L500.4050 ####[facility] [address] [place], [address] Hemoglobin (Bld) [Mass/Vol] 12.1 g/dL Normal 12.0-15.0 [facility] Comment on above: Performed By: #### L 501.2450, L100.0100, L500.4050 ####[facility] [address] [place], [address] IG% 0.900 Normal 0.0-0.9 [facility] Comment on above: Result Comment: IG% - Immature Granulocytes (promyelocytes, myelocytes andmetamyelocytes) > 1% indicates that a LEFT SHIFT is Present. Performed By: #### L 501.2450, L100.0100, L500.4050 ####[facility] [address] [place], [address] Lymphocytes/100 WBC (Bld) 20.2 % Normal 19-41 [facility] Comment on above: Performed By: #### L 501.2450, L100.0100, L500.4050 ####[facility] [address] [place], [address] MCH (RBC) [Entitic mass] 26.8 pg Low 27.0-32.0 [facility] Comment on above: Performed By: #### L 501.2450, L100.0100, L500.4050 ####[facility] [address] [place], [address] MCHC (RBC) [Mass/Vol] 30.4 g/dL Low 32-36 [facility] Comment on above: Performed By: #### L 501.2450, L100.0100, L500.4050 ####[facility] [address] [place], [address] MCV (RBC) [Entitic vol] 88.2 fL Normal 81-99 [facility] Comment on above: Performed By: #### L 501.2450, L100.0100, L500.4050 ####[facility] [address] [place], [address] Monocytes/100 WBC (Bld) 8.2 % Normal 0-10 [facility] Comment on above: Performed By: #### L 501.2450, L100.0100, L500.4050 ####[facility] [address] [place], [address] Neutrophils/100 WBC (Bld) 63.6 % Normal 47-70 [facility] Comment on above: Performed By: #### L 501.2450, L100.0100, L500.4050 ####[facility] [address] [place], [address] Nucleated RBC (Bld) [#/Vol] 0 10*3/uL Normal 0-5 [facility] Comment on above: Performed By: #### L 501.2450, L100.0100, L500.4050 ####[facility] [address] [place], [address] Platelet mean volume (Bld) [Entitic vol] 10.6 fL Normal 6.2-12.0 [facility] Comment on above: Performed By: #### L 501.2450, L100.0100, L500.4050 ####[facility] [address] [place], [address] Platelets (Bld) [#/Vol] 293 10*3/uL Normal 150-450 [facility] Comment on above: Performed By: #### L 501.2450, L100.0100, L500.4050 ####[facility] [address] [place], [address] RBC (Bld) [#/Vol] 4.51 10*6/uL Normal 4.2-5.4 [facility] Comment on above: Performed By: #### L 501.2450, L100.0100, L500.4050 ####[facility] [address] [place], [address] RDW SD 46.9 fl High 35.1-43.9 [facility] Comment on above: Performed By: #### L 501.2450, L100.0100, L500.4050 ####[facility] [address] [place], [address] WBC (Bld) [#/Vol] 12.4 10*3/uL High 4.4-11.0 [facility] Comment on above: Performed By: #### L 501.2450, L100.0100, L500.4050 ####[facility] [address] [place], [address] Carbon dioxide, total [Moles /volume] in Central venous bloodOrdered By: Katina Price on 02-26-2025 CO2 [Moles/Vol] 30.6 mmol/L 21.0-32.0 [facility] Chloride assayOrdered By: Afia Price on 02-26-2025 Chloride [Moles/Vol] 99 mmol/L 98-108 [facility] Comprehensive Metabolic Prof ilon 02-26-2025 Albumin [Mass/Vol] 4.1 g/dL Normal 3.4-4.8 [facility] Comment on above: Performed By: #### L 501.2450, L100.0100, L500.4050 ####[facility] [address] [place], [address] Albumin/Globulin [Mass ratio] 1.3 {ratio} Normal 0.9-2.4 [facility] Comment on above: Performed By: #### L 501.2450, L100.0100, L500.4050 ####[facility] [address] [place], [address] ALK PHOS 113 U/L High 35-104 [facility] Comment on above: Performed By: #### L 501.2450, L100.0100, L500.4050 ####[facility] [address] [place], [address] ALT [Catalytic activity/Vol] 10 U/L Normal <=34 [facility] Comment on above: Performed By: #### L 501.2450, L100.0100, L500.4050 ####[facility] [address] [place], [address] AST [Catalytic activity/Vol] 17 U/L Normal <=31 [facility] Comment on above: Performed By: #### L 501.2450, L100.0100, L500.4050 ####[facility] [address] [place], [address] BUN/CRE 7.6 RATIO Low 10-20 [facility] Comment on above: Performed By: #### L 501.2450, L100.0100, L500.4050 ####[facility] [address] [place], [address] Calcium [Mass/Vol] 9.5 mg/dL Normal 7.6-11.0 [facility] Comment on above: Performed By: #### L 501.2450, L100.0100, L500.4050 ####[facility] [address] [place], [address] Chloride [Moles/Vol] 99 mmol/L Normal 98-108 [facility] Comment on above: Performed By: #### L 501.2450, L100.0100, L500.4050 ####[facility] [address] [place], [address] CO2 [Moles/Vol] 30.6 mmol/L Normal 21.0-32.0 [facility] Comment on above: Performed By: #### L 501.2450, L100.0100, L500.4050 ####[facility] [address] [place], [address] Creatinine [Mass/Vol] 0.82 mg/dL Normal 0.70-1.20 [facility] Comment on above: Performed By: #### L 501.2450, L100.0100, L500.4050 ####[facility] [address] [place], [address] ECRCL 59.60 ml/min Normal 50-250 [facility] Comment on above: Performed By: #### L 501.2450, L100.0100, L500.4050 ####[facility] [address] [place], [address] GAP 11 Normal 5-15 [facility] Comment on above: Performed By: #### L 501.2450, L100.0100, L500.4050 ####[facility] [address] [place], [address] GFR/1.73 sq M.predicted among non-blacks MDRD (S/P/Bld) [Vol rate/Area] 81 mL/min/{1.73_m2} Normal >60 [facility] Comment on above: Result Comment: mL/m in/1.73m2 CKD-EPI Creatinine Equation (2020) Performed By: #### L 501.2450, L100.0100, L500.4050 ####[facility] [address] [place], [address] Globulin (S) [Mass/Vol] 3.1 g/dL Normal 2.2-4.2 [facility] Comment on above: Performed By: #### L 501.2450, L100.0100, L500.4050 ####[facility] [address] [place], [address] Glucose [Mass/Vol] 83 mg/dL Normal 70-99 [facility] Comment on above: Performed By: #### L 501.2450, L100.0100, L500.4050 ####[facility] [address] [place], [address] Potassium [Moles/Vol] 4.1 mmol/L Normal 3.3-5.1 [facility] Comment on above: Performed By: #### L 501.2450, L100.0100, L500.4050 ####[facility] [address] [place], [address] Sodium [Moles/Vol] 140 mmol/L Normal 133-145 [facility] Comment on above: Performed By: #### L 501.2450, L100.0100, L500.4050 ####[facility] [address] [place], [address] T BILI < 0.15 Normal 0.00-1.30 [facility] Comment on above: Performed By: #### L 501.2450, L100.0100, L500.4050 ####[facility] [address] [place], [address] T PROT 7.2 g/dL Normal 5.9-8.4 [facility] Comment on above: Performed By: #### L 501.2450, L100.0100, L500.4050 ####[facility] [address] [place], [address] Urea nitrogen [Mass/Vol] 6 mg/dL Normal 4-19 [facility] Comment on above: Performed By: #### L 501.2450, L100.0100, L500.4050 ####[facility] [address] [place], [address] Emergency Department Summary on 02-26-2025 Emergency Department Summary Normal [facility] Eosinophil percentageOrdered By: Katina Price on 02-26-2025 Eosinophils/100 WBC (Bld) 6.1 % High 0-5 [facility] Erythrocyte distribution wid th ratioOrdered By: Katina Price on 02-26-2025 Erythrocyte distribution width (RBC) [Ratio] 14.6 % 11.6-14.6 [facility] Erythrocyte distribution wid th standard deviationOrdered By: Katina Price on 02-26-2025 Erythrocyte distribution width (RBC) [Ratio] 46.9 fl High 35.1-43.9 [facility] Glomerular filtration rate ( GFR) estimation/1.73 sq m using serum, plasma, or whole bOrdered By: Katina Price on 02-26-2025 GFR/1.73 sq M.predicted among non-blacks MDRD (S/P/Bld) [Vol rate/Area] 81 mL/min/{1.73_m2} >60 [facility] Hematocrit Auto (Bld) [Volum e fraction]Ordered By: Katina Price on 02-26-2025 Hematocrit (Bld) [Volume fraction] 39.8 % 37-47 [facility] Hemoglobin measurementOrdere d By: Katina Price on 02-26-2025 Hemoglobin (Bld) [Mass/Vol] 12.1 g/dL 12.0-15.0 [facility] Immature granulocytes/100 WB C Auto (Bld)Ordered By: Katina Price on 02-26-2025 Immature granulocytes/100 WBC (Bld) 0.900 % 0.0-0.9 [facility] Lipaseon 02-26-2025 Lipase [Catalytic activity/Vol] 45 U/L Normal 13-75 [facility] Comment on above: Result Comment: Jenny capellan note:LIPASE revised reference range effective 23.New Lipase methodology. Expected to produce lower valuesthan the previous assay method.NEW Reference Range: 13 - 75 U/L Performed By: #### L 501.2450, L100.0100, L500.4050 ####[facility] [address] [place], [place], [id number] MCV (mean corpuscular volume ) determinationOrdered By: Katina Price on 02-26-2025 MCV (RBC) [Entitic vol] 88.2 fL 81-99 [facility] Mean corpuscular hemoglobin (MCH) determinationOrdered By: Katina Price on 02-26-2025 MCH (RBC) [Entitic mass] 26.8 pg Low 27.0-32.0 [facility] Monocyte percentageOrdered B y: Katina Price on 02-26-2025 Monocytes/100 WBC (Bld) 8.2 % 0-10 [facility] Neutrophil percentageOrdered By: Katina Price on 02-26-2025 Neutrophils/100 WBC (Bld) 63.6 % 47-70 [facility] No Panel InformationOrdered By: Katina Price on 02-26-2025 17 U/L <32 [facility] Platelet countOrdered By: Afia Price on 02-26-2025 Platelets (Bld) [#/Vol] 293 10*3/uL 150-450 [facility] Potassium measurement (mass/ volume)Ordered By: Katina Price on 02-26-2025 Potassium (Unsp spec) [Mass/Vol] 4.1 mmol/L 3.3-5.1 [facility] RBC Auto (Bld) [#/Vol]Ordere d By: Katina Price on 02-26-2025 RBC (Bld) [#/Vol] 4.51 10*6/uL 4.2-5.4 [facility] Serum creatinine measurement (mass/volume)Ordered By: Katina Price on 02-26-2025 Creatinine [Mass/Vol] 0.82 mg/dL 0.70-1.20 [facility] Serum globulin measurementOr dered By: Katina Price on 02-26-2025 Globulin (S) [Mass/Vol] 3.1 g/dL 2.2-4.2 [facility] Serum glucose measurement (m ass/volume)Ordered By: Katina Price on 02-26-2025 Glucose [Mass/Vol] 83 mg/dL 70-99 [facility] Serum or plasma alanine pimentel otransferase (ALT) measurementOrdered By: Katina Price on 02-26-2025 ALT [Catalytic activity/Vol] 10 U/L <35 [facility] Serum or plasma albumin esthela urement (mass/volume)Ordered By: Katina Price on 02-26-2025 Albumin [Mass/Vol] 4.1 g/dL 3.4-4.8 [facility] Serum or plasma albumin/glob ulin mass ratioOrdered By: Katina Price on 02-26-2025 Albumin/Globulin [Mass ratio] 1.3 {ratio} 0.9-2.4 [facility] Serum or plasma alkaline jose sphatase measurementOrdered By: Katina Price on 02-26-2025 ALP [Catalytic activity/Vol] 113 U/L High 35-104 [facility] Serum or plasma calcium esthela urement (mass/volume)Ordered By: Katina Price on 02-26-2025 Calcium [Mass/Vol] 9.5 mg/dL 7.6-11.0 [facility] Serum or plasma urea nitroge n measurement (mass/volume)Ordered By: Katina Price on 02-26-2025 Urea nitrogen [Mass/Vol] 6 mg/dL 4-19 [facility] Sodium levelOrdered By: Katina Price on 02-26-2025 Sodium [Moles/Vol] 140 mmol/L 133-145 [facility] Total proteinOrdered By: Valeria Price on 02-26-2025 Protein [Mass/Vol] 7.2 g/dL 5.9-8.4 [facility] White blood cell (WBC) count Ordered By: Katina Price on 02-26-2025 WBC (Bld) [#/Vol] 12.4 10*3/uL High 4.4-11.0 [facility] Pulmonary Visit Reporton Pulmonary Visit Report Normal [facility] 12 Lead EKGon 01-27-2025 12 Lead EKG Normal [facility] Absolute lymphocyte countOrd ered By: Franco Inman on 01-27-2025 Lymphocytes Auto (Unsp spec) [#/Vol] 2.62 10*3/uL 0.83-4.51 [facility] Anion gap in Serum or Plasma Ordered By: Franco Inman on 01-27-2025 Anion gap [Moles/Vol] 11 mmol/L 5-15 [facility] Automated blood erythrocyte countOrdered By: Franco Inman on 01-27-2025 RBC (Bld) [#/Vol] 4.32 10*6/uL Normal 4.2-5.4 [facility] Comment on above: Performed By: #### L 100.0100 ####[facility] [address] [place], [place], [id number]) Automated blood hematocrit ( percentage)Ordered By: Franco Inman on 01-27-2025 Hematocrit (Bld) [Volume fraction] 37.5 % Normal 37-47 [facility] Comment on above: Performed By: #### L 100.0100 ####[facility] [address] [place], [address] Automated lymphocyte count a s percentage of total leukocytesOrdered By: Franco Inman on 01-27-2025 Lymphocytes/100 WBC Auto (Unsp spec) 16.8 % Low 19-41 [facility] BUN/creatinine ratioOrdered By: Franco Inman on 01-27-2025 Urea nitrogen/Creatinine [Mass ratio] 7.1 mg/mg Low 10-20 [facility] Basophil percentageOrdered B y: Franco Inman on 01-27-2025 Basophils/100 WBC (Bld) 1.0 % Normal 0-1 [facility] Comment on above: Performed By: #### L 100.0100 ####[facility] [address] [place], [place], [id number] Bilirubin, totalOrdered By: Franco Inman on 01-27-2025 Bilirubin [Mass/Vol] mg/dL 0.00-1.30 [facility] CBC W/Diff, Automatedon Absolute Lymph 2.62 X10 3/uL Normal 0.83-4.51 [facility] Comment on above: Performed By: #### L 100.0100 ####[facility] [address] [place], [address] Absolute Neut 11.0 X10 3/uL High 2.0-7.7 [facility] Comment on above: Performed By: #### L 100.0100 ####[facility] [address] [place], [address] IG% 0.800 Normal 0.0-0.9 [facility] Comment on above: Result Comment: IG% - Immature Granulocytes (promyelocytes, myelocytes andmetamyelocytes) > 1% indicates that a LEFT SHIFT is Present. Performed By: #### L 100.0100 ####[facility] [address] [place], [address] Lymphocytes/100 WBC (Bld) 16.8 % Low 19-41 [facility] Comment on above: Performed By: #### L 100.0100 ####[facility] [address] [place], [address] MCHC (RBC) [Mass/Vol] 30.7 g/dL Low 32-36 [facility] Comment on above: Performed By: #### L 100.0100 ####[facility] [address] [place], [address] Nucleated RBC (Bld) [#/Vol] 0 10*3/uL Normal 0-5 [facility] Comment on above: Performed By: #### L 100.0100 ####[facility] [address] [place], [address] Platelet mean volume (Bld) [Entitic vol] 9.8 fL Normal 6.2-12.0 [facility] Comment on above: Performed By: #### L 100.0100 ####[facility] [address] [place], [address] RDW SD 46.0 fl High 35.1-43.9 [facility] Comment on above: Performed By: #### L 100.0100 ####[facility] [address] [place], [address] Carbon dioxide, total [Moles /volume] in Central venous bloodOrdered By: Franco Inman on 01-27-2025 CO2 [Moles/Vol] 27.5 mmol/L Normal 21.0-32.0 [facility] Comment on above: Performed By: #### L 500.4050, L501.2450 ####[facility] [address] [place], [address] Chest PA and Lateralon 01-27 Chest PA and Lateral Normal [facility] Chloride assayOrdered By: Leo Inman on 01-27-2025 Chloride [Moles/Vol] 98 mmol/L Normal 98-108 [facility] Comment on above: Performed By: #### L 500.4050, L501.2450 ####[facility] [address] [place], [address] Comprehensive Metabolic Prof ilon 01-27-2025 ALK PHOS 108 U/L High 35-104 [facility] Comment on above: Performed By: #### L 500.4050, L501.2450 ####[facility] [address] [place], [address] AST [Catalytic activity/Vol] 19 U/L Normal <=31 [facility] Comment on above: Performed By: #### L 500.4050, L501.2450 ####[facility] [address] [place], [address] BUN/CRE 7.1 RATIO Low 10-20 [facility] Comment on above: Performed By: #### L 500.4050, L501.2450 ####[facility] [address] [place], [address] ECRCL 65.16 ml/min Normal 50-250 [facility] Comment on above: Performed By: #### L 500.4050, L501.2450 ####[facility] [address] [place], [address] GAP 11 Normal 5-15 [facility] Comment on above: Performed By: #### L 500.4050, L501.2450 ####[facility] [address] [place], [address] Potassium [Moles/Vol] 4.3 mmol/L Normal 3.3-5.1 [facility] Comment on above: Performed By: #### L 500.4050, L501.2450 ####[facility] [address] [place], [address] T BILI < 0.15 Normal 0.00-1.30 [facility] Comment on above: Performed By: #### L 500.4050, L501.2450 ####[facility] [address] [place], [address] T PROT 7.1 g/dL Normal 5.9-8.4 [facility] Comment on above: Performed By: #### L 500.4050, L501.2450 ####[facility] [address] [place], [address] Emergency Department Summary on 01-27-2025 Emergency Department Summary Normal [facility] Eosinophil percentageOrdered By: Franco Inman on 01-27-2025 Eosinophils/100 WBC (Bld) 5.3 % High 0-5 [facility] Comment on above: Performed By: #### L 100.0100 ####[facility] [address] [place], [address] Erythrocyte distribution wid th ratioOrdered By: Franco Inman on 01-27-2025 Erythrocyte distribution width (RBC) [Ratio] 14.5 % Normal 11.6-14.6 [facility] Comment on above: Performed By: #### L 100.0100 ####[facility] [address] [place], [address] Erythrocyte distribution wid th standard deviationOrdered By: Franco Inman on 01-27-2025 Erythrocyte distribution width (RBC) [Ratio] 46.0 fl High 35.1-43.9 [facility] Glomerular filtration rate ( GFR) estimation/1.73 sq m using serum, plasma, or whole bOrdered By: Franco Inman on 01-27-2025 GFR/1.73 sq M.predicted among non-blacks MDRD (S/P/Bld) [Vol rate/Area] 90 mL/min/{1.73_m2} Normal >60 [facility] Comment on above: Result Comment: mL/m in/1.73m2 CKD-EPI Creatinine Equation (2020) Performed By: #### L 500.4050, L501.2450 ####[facility] [address] [place], [address] Hemoglobin measurementOrdere d By: Franco Inman on 01-27-2025 Hemoglobin (Bld) [Mass/Vol] 11.5 g/dL Low 12.0-15.0 [facility] Comment on above: Performed By: #### L 100.0100 ####[facility] [address] [place], [address] Immature granulocytes/100 WB C Auto (Bld)Ordered By: Franco Inman on 01-27-2025 Immature granulocytes/100 WBC (Bld) 0.800 % 0.0-0.9 [facility] Lipaseon 01-27-2025 Lipase [Catalytic activity/Vol] 32 U/L Normal 13-75 [facility] Comment on above: Result Comment: Jenny capellan note:LIPASE revised reference range effective 23.New Lipase methodology. Expected to produce lower valuesthan the previous assay method.NEW Reference Range: 13 - 75 U/L Performed By: #### L 500.4050, L501.2450 ####[facility] [address] [place], [address] MCV (mean corpuscular volume ) determinationOrdered By: Franco Inman on 01-27-2025 MCV (RBC) [Entitic vol] 86.8 fL Normal 81-99 [facility] Comment on above: Performed By: #### L 100.0100 ####[facility] [address] [place], [address] Mean corpuscular hemoglobin (MCH) determinationOrdered By: Franco Inman on 01-27-2025 MCH (RBC) [Entitic mass] 26.6 pg Low 27.0-32.0 [facility] Comment on above: Performed By: #### L 100.0100 ####[facility] [address] [place], [address] Monocyte percentageOrdered B y: Franco Inman on 01-27-2025 Monocytes/100 WBC (Bld) 5.9 % Normal 0-10 [facility] Comment on above: Performed By: #### L 100.0100 ####[facility] [address] [place], [address] Neutrophil percentageOrdered By: Franco Inman on 01-27-2025 Neutrophils/100 WBC (Bld) 70.2 % High 47-70 [facility] Comment on above: Performed By: #### L 100.0100 ####[facility] [address] [place], [address] No Panel InformationOrdered By: Franco Inman on 01-27-2025 19 U/L <32 [facility] Platelet countOrdered By: Leo Inman on 01-27-2025 Platelets (Bld) [#/Vol] 377 10*3/uL Normal 150-450 [facility] Comment on above: Performed By: #### L 100.0100 ####[facility] [address] [place], [address] Potassium measurement (mass/ volume)Ordered By: Franco Inman on 01-27-2025 Potassium (Unsp spec) [Mass/Vol] 4.3 mmol/L 3.3-5.1 [facility] Serum creatinine measurement (mass/volume)Ordered By: Franco Inman on 01-27-2025 Creatinine [Mass/Vol] 0.75 mg/dL Normal 0.70-1.20 [facility] Comment on above: Performed By: #### L 500.4050, L501.2450 ####[facility] [address] [place], [address] Serum globulin measurementOr dered By: Franco Inman on 01-27-2025 Globulin (S) [Mass/Vol] 3.1 g/dL Normal 2.2-4.2 [facility] Comment on above: Performed By: #### L 500.4050, L501.2450 ####[facility] [address] [place], [address] Serum glucose measurement (m ass/volume)Ordered By: Franco Inman on 01-27-2025 Glucose [Mass/Vol] 130 mg/dL High 70-99 [facility] Comment on above: Performed By: #### L 500.4050, L501.2450 ####[facility] [address] [place], [address] Serum or plasma alanine pimentel otransferase (ALT) measurementOrdered By: Franco Inman on 01-27-2025 ALT [Catalytic activity/Vol] 13 U/L Normal <=34 [facility] Comment on above: Performed By: #### L 500.4050, L501.2450 ####[facility] [address] [place], [address] Serum or plasma albumin esthela urement (mass/volume)Ordered By: Franco Inman on 01-27-2025 Albumin [Mass/Vol] 4.0 g/dL Normal 3.4-4.8 [facility] Comment on above: Performed By: #### L 500.4050, L501.2450 ####[facility] [address] [place], [address] Serum or plasma albumin/glob ulin mass ratioOrdered By: Franco Inman on 01-27-2025 Albumin/Globulin [Mass ratio] 1.3 {ratio} Normal 0.9-2.4 [facility] Comment on above: Performed By: #### L 500.4050, L501.2450 ####[facility] [address] [place], [address] Serum or plasma alkaline jose sphatase measurementOrdered By: Franco Inman on 01-27-2025 ALP [Catalytic activity/Vol] 108 U/L High 35-104 [facility] Serum or plasma calcium esthela urement (mass/volume)Ordered By: Franco Inman on 01-27-2025 Calcium [Mass/Vol] 9.2 mg/dL Normal 7.6-11.0 [facility] Comment on above: Performed By: #### L 500.4050, L501.2450 ####[facility] [address] [place], [address] Serum or plasma urea nitroge n measurement (mass/volume)Ordered By: Franco Inman on 01-27-2025 Urea nitrogen [Mass/Vol] 5 mg/dL Normal 4-19 [facility] Comment on above: Performed By: #### L 500.4050, L501.2450 ####[facility] [address] [place], [address] Sodium levelOrdered By: Franco Inman on 01-27-2025 Sodium [Moles/Vol] 137 mmol/L Normal 133-145 [facility] Comment on above: Performed By: #### L 500.4050, L501.2450 ####[facility] [address] [place], [address] Total proteinOrdered By: Ezra Inman on 01-27-2025 Protein [Mass/Vol] 7.1 g/dL 5.9-8.4 [facility] White blood cell (WBC) count Ordered By: Franco Inman on 01-27-2025 WBC (Bld) [#/Vol] 15.6 10*3/uL High 4.4-11.0 [facility] Comment on above: Performed By: #### L 100.0100 ####[facility] [address] [place], [address] CNOVon 01-13-2025 CNOV Office Visit (INTMWS ) GRACIE BANUELOS ([id number]) 1965 F Date Time Provider Department 01/13/25 10:40 AM SOILA EASTON During your visit today, we recorded the following information about you: Pulse Respiration Blood pressure Weight 88/minute 16/minute 108/60 62.6 kg OlderSoila APRN.CNP 01/13/2025 11:33 AM Signed CC: Patient presents with: Recheck: Follow up HPI Gracie Banuelos is a 59 year old female who presents today for gout concerns. Recording using [employer] software for draft documentation of the visit was discussed with the patient/authorized customer account representative; all questions welcomed and answered. Patient/authorized customer account representative agreed to proceed Gout: - Under [...] of months ago asa ordered by her emergency response officer. - Denies redness or red streaking; COPD [...] will be in the 90s. States her parks worker is aware of this. - Concerns about potential need for ventilator post-surgery. - Under care of Dr. Sebastian and Ani at [facility]. - No recent infections, fever, or [...] Stage 3 severe COPD by GOLD classification ([facility]) 2018 Tobacco use greater than 30 years [...] for nausea/ (more content not included)... Normal [facility] CBC W/Diff, Automatedon 12-27 PATH REV Reviewed Normal [facility] Comment on above: Result Comment: SEE REPORT IN PATIENT'S EMR AMENDED REPORT 01/11/25 1354 PATH REV previously reported as: May foll Performed By: #### L 100.0100, L500.2500 ####[facility] [address] [place], [place], [address] PATH REV Reviewed Normal [facility] Comment on above: Result Comment: SEE REPORT IN PATIENT'S EMR AMENDED REPORT 01/11/25 1352 PATH REV previously reported as: May foll Performed By: #### L 100.0100 ####[facility] [address] [place], [place], [address] Performed By: #### L 100.0100, L500.2500 ####[facility] [address] [place], [place], [address] PATH REV Reviewed [facility] Comment on above: Result Comment: SEE REPORT IN PATIENT'S EMR AMENDED REPORT 01/11/25 1342 PATH REV previously reported as: May foll Performed By: #### L 500.2500, L503.7505, L509.7001, L100.0100 ####[facility] [address] [place], [place], [address] CNPMalou 01-09-2025 [facility] Telephone (INTMWS) GRACIE BANUELOS ([id number]) 1965 F Date Time Provider Department 01/09/25 MISBAH ELKINS During your visit today, we recorded the following information about you: Marge Perkins RN 01/09/2025 7:18 PM Signed Pt called in and reports she can get pull ups paid for through [employer]. She states the provider jst has to [...] for which she needs the pull ups, Misbah Cisneros MD, Kathryn, MA 01/10/2025 9:54 AM Signed Spoke with pt, she states she has urinary incontinence and trouble holding her urine when she is outside her home. Sent rx to [facility]. FYI: Pt scheduled appt tomorrow with Soila Easton to discuss multiple concerns. CHERELLE Jones Amanda, RN 01/12/2025 1:15 PM Signed Pt has appointment with Soila [facility] [employer] on 01/14/24. Allergies As of Date: 01/09/2025 Noted Allergy Reaction BACTRIM (SULFAMETHOXAZOLE-TRIME TH*11/28/2022 4 - Hives HYDROCODONE 08/02/2020 9 - Itching PENICILLINS 07/07/2006 14 - Other: See Comments Comments: hives VALIUM (DIAZEPAM) 11/02/2013 14 - Other: See Comments Comments: cross reaction with alcohol addiction Date Reviewed: 12/31/2024 Reviewed by: Marge Handy, RN - Fully Assessed Reason for Visit: [...] stress female [N39.3] 11/24/2014 HPV test positive [[id number]] 11/24/2014 Alcohol depe (more content not included)... Normal [facility] CBC W/Diff, Automatedon 04-0 PATH REV N/A Normal [facility] Comment on above: Result Comment: AMENDED REPORT 01/04/252142 PATH REV previously reported as: January Performed By: #### L 500.4050, L501.2450, L100.0100 ####[facility] [address] [place], [address] 12 Lead EKGon 01-01-2025 12 Lead EKG Normal [facility] ALP [Catalytic activity/Vol] Ordered By: Leandro Sanchez on 01-01-2025 Serum or plasma alkaline phosphatase measurement 111 U/L High 35-104 [facility] ALT [Catalytic activity/Vol] Ordered By: Leandro Sanchez on 01-01-2025 Serum or plasma alanine aminotransferase (ALT) measurement 8 U/L <35 [facility] Absolute lymphocyte countOrd ered By: Leandro Sanchez on 01-01-2025 Lymphocytes Auto (Unsp spec) [#/Vol] 3.90 10*3/uL 0.83-4.51 [facility] Absolute neutrophil countOrd ered By: Leandro Sanchez on 01-01-2025 Absolute neutrophil count 8.9 X10^3/uL High 2.0-7.7 [facility] Albumin [Mass/Vol]Ordered By : Leandro Sanchez on 01-01-2025 Serum or plasma albumin measurement (mass/volume) 3.7 g/dL 3.4-4.8 [facility] Albumin/Globulin [Mass ratio ]Ordered By: Leandro Sanchez on 01-01-2025 Serum or plasma albumin/globulin mass ratio 1.2 RATIO 0.9-2.4 [facility] Anion gap [Moles/Vol]Ordered By: Leandro Sanchez on 01-01-2025 Anion gap in Serum or Plasma 11 5-15 [facility] Anion gap in Serum or Plasma Ordered By: Leandro Sanchez on 01-01-2025 Anion gap [Moles/Vol] 11 mmol/L 5-15 [facility] BUN/creatinine ratioOrdered By: Leandro Sanchez on 01-01-2025 Urea nitrogen/Creatinine [Mass ratio] 8.7 mg/mg Low 10-20 [facility] BUN/creatinine ratio 8.7 RATIO Low 10-20 [facility] Bilirubin, totalOrdered By: Leandro Sanchez on 01-01-2025 Bilirubin [Mass/Vol] mg/dL 0.00-1.30 [facility] Bilirubin, total < 0.15 mg/dL 0.00-1.30 [facility] Blood basophils/100 leukocyt esOrdered By: Leandro Sanchez on 01-01-2025 Basophils/100 WBC (Bld) 1 % 0-1 [facility] Blood eosinophils/100 leukoc ytesOrdered By: Leandro Sanchez on 01-01-2025 Eosinophils/100 WBC (Bld) 6 % High 0-5 [facility] Blood lymphocytes/100 leukoc ytesOrdered By: Leandro Sanchez on 01-01-2025 Lymphocytes/100 WBC (Bld) 24 % 19-41 [facility] Blood metamyelocytes/100 scott kocytesOrdered By: Leandro Sanchez on 01-01-2025 Metamyelocytes/100 WBC (Bld) 7 % High 0-1 [facility] Blood metamyelocytes/100 leukocytes 7 % 0-10 [facility] Blood monocytes/100 leukocyt esOrdered By: Leandro Sanchez on 01-01-2025 Monocytes/100 WBC (Bld) 7 % 0-10 [facility] Blood segmented neutrophils/ 100 leukocytesOrdered By: Leandro Sanchez on 01-01-2025 Segmented neutrophils/100 WBC (Bld) 54 % 47-70 [facility] CBC W/Diff, Automatedon PATH REV N/A Normal [facility] Comment on above: Result Comment: AMENDED REPORT 01/01/251802 PATH REV previously reported as: January ana maría Performed By: #### L 500.2500, L100.0100 ####[facility] [address] [place], [address] Calcium [Mass/Vol]Ordered By : Leandro Sanchez on 01-01-2025 Serum or plasma calcium measurement (mass/volume) 9.0 mg/dL 7.6-11.0 [facility] Carbon dioxide, total [Moles /volume] in Central venous bloodOrdered By: Leandro Sanchez on 01-01-2025 CO2 [Moles/Vol] 28.7 mmol/L 21.0-32.0 [facility] Carbon dioxide, total [Moles/volume] in Central venous blood 28.7 mmol/L 21.0-32.0 [facility] Cells counted Molgen (Bld/Ti ss) [#]Ordered By: Leandro Sanchez on 01-01-2025 Total cell count 100 MANUAL DIFF [facility] Chest 1 View (Portable)on Chest 1 View (Portable) Normal [facility] Chloride assayOrdered By: Jose Sanchez on 01-01-2025 Chloride [Moles/Vol] 91 mmol/L Low 98-108 [facility] Chloride assay 91 mmol/L Low 98-108 [facility] Comprehensive Metabolic Prof ilon 01-01-2025 Albumin [Mass/Vol] 3.7 g/dL Normal 3.4-4.8 [facility] Comment on above: Performed By: #### L 500.4050, L501.2450, L100.0100 ####[facility] [address] [place], [address] Albumin/Globulin [Mass ratio] 1.2 {ratio} Normal 0.9-2.4 [facility] Comment on above: Performed By: #### L 500.4050, L501.2450, L100.0100 ####[facility] [address] [place], [address] ALK PHOS 111 U/L High 35-104 [facility] Comment on above: Performed By: #### L 500.4050, L501.2450, L100.0100 ####[facility] [address] [place], [address] ALT [Catalytic activity/Vol] 8 U/L Normal <=34 [facility] Comment on above: Performed By: #### L 500.4050, L501.2450, L100.0100 ####[facility] [address] [place], [address] AST [Catalytic activity/Vol] 13 U/L Normal <=31 [facility] Comment on above: Performed By: #### L 500.4050, L501.2450, L100.0100 ####[facility] [address] [place], [address] BUN/CRE 8.7 RATIO Low 10-20 [facility] Comment on above: Performed By: #### L 500.4050, L501.2450, L100.0100 ####[facility] [address] [place], [address] Calcium [Mass/Vol] 9.0 mg/dL Normal 7.6-11.0 [facility] Comment on above: Performed By: #### L 500.4050, L501.2450, L100.0100 ####[facility] [address] [place], [address] Chloride [Moles/Vol] 91 mmol/L Low 98-108 [facility] Comment on above: Performed By: #### L 500.4050, L501.2450, L100.0100 ####[facility] [address] [place], [address] CO2 [Moles/Vol] 28.7 mmol/L Normal 21.0-32.0 [facility] Comment on above: Performed By: #### L 500.4050, L501.2450, L100.0100 ####[facility] [address] [place], [address] Creatinine [Mass/Vol] 0.76 mg/dL Normal 0.70-1.20 [facility] Comment on above: Performed By: #### L 500.4050, L501.2450, L100.0100 ####[facility] [address] [place], [address] ECRCL 69.70 ml/min Normal 50-250 [facility] Comment on above: Performed By: #### L 500.4050, L501.2450, L100.0100 ####[facility] [address] [place], [address] GAP 11 Normal 5-15 [facility] Comment on above: Performed By: #### L 500.4050, L501.2450, L100.0100 ####[facility] [address] [place], [address] GFR/1.73 sq M.predicted among non-blacks MDRD (S/P/Bld) [Vol rate/Area] 89 mL/min/{1.73_m2} Normal >60 [facility] Comment on above: Result Comment: mL/m in/1.73m2 CKD-EPI Creatinine Equation (2020) Performed By: #### L 500.4050, L501.2450, L100.0100 ####[facility] [address] [place], [address] Globulin (S) [Mass/Vol] 3.2 g/dL Normal 2.2-4.2 [facility] Comment on above: Performed By: #### L 500.4050, L501.2450, L100.0100 ####[facility] [address] [place], [address] Glucose [Mass/Vol] 111 mg/dL High 70-99 [facility] Comment on above: Performed By: #### L 500.4050, L501.2450, L100.0100 ####[facility] [address] [place], [address] Potassium [Moles/Vol] 4.0 mmol/L Normal 3.3-5.1 [facility] Comment on above: Performed By: #### L 500.4050, L501.2450, L100.0100 ####[facility] [address] [place], [address] Sodium [Moles/Vol] 130 mmol/L Low 133-145 [facility] Comment on above: Performed By: #### L 500.4050, L501.2450, L100.0100 ####[facility] [address] [place], [address] T BILI < 0.15 Normal 0.00-1.30 [facility] Comment on above: Performed By: #### L 500.4050, L501.2450, L100.0100 ####[facility] [address] [place], [address] T PROT 6.9 g/dL Normal 5.9-8.4 [facility] Comment on above: Performed By: #### L 500.4050, L501.2450, L100.0100 ####[facility] [address] [place], [address] Urea nitrogen [Mass/Vol] 7 mg/dL Normal 4-19 [facility] Comment on above: Performed By: #### L 500.4050, L501.2450, L100.0100 ####[facility] [address] [place], [address] Creatinine [Mass/Vol]Ordered By: Leandro Sanchez on 01-01-2025 Serum creatinine measurement (mass/volume) 0.76 mg/dL 0.70-1.20 [facility] Emergency Department Summary on 01-01-2025 Emergency Department Summary Normal [facility] Eosinophils/100 WBC (Bld)Ord ered By: Leandro Sanchez on 01-01-2025 Blood eosinophils/100 leukocytes 6 % High 0-5 [facility] Erythrocyte distribution wid th (RBC) [Ratio]Ordered By: Leandro Sanchez on 01-01-2025 Erythrocyte distribution width ratio 15.2 % High 11.6-14.6 [facility] Erythrocyte distribution width standard deviation 47.7 fl High 35.1-43.9 [facility] Erythrocyte distribution wid th ratioOrdered By: Leandro Sanchez on 01-01-2025 Erythrocyte distribution width (RBC) [Ratio] 15.2 % High 11.6-14.6 [facility] Erythrocyte distribution wid th standard deviationOrdered By: Leandro Sanchez on 01-01-2025 Erythrocyte distribution width (RBC) [Ratio] 47.7 fl High 35.1-43.9 [facility] Estimation of creatinine frankie aranceOrdered By: Leandro Sanchez on 01-01-2025 Estimation of creatinine clearance 69.70 ml/min 50-250 [facility] GFR/1.73 sq M.predicted gregory g non-blacks MDRD (S/P/Bld) [Vol rate/Area]Ordered By: Leandro Sanchez on 01-01-2025 Glomerular filtration rate (GFR) estimation/1.73 sq m using serum, plasma, or whole b 89 >60 [facility] Glomerular filtration rate ( GFR) estimation/1.73 sq m using serum, plasma, or whole bOrdered By: Leandro Sanchez on 01-01-2025 GFR/1.73 sq M.predicted among non-blacks MDRD (S/P/Bld) [Vol rate/Area] 89 mL/min/{1.73_m2} >60 [facility] Glucose [Mass/Vol]Ordered By : Leandro Sanchez on 01-01-2025 Serum glucose measurement (mass/volume) 111 mg/dL High 70-99 [facility] Hematocrit Auto (Bld) [Volum e fraction]Ordered By: Leandro Sanchez on 01-01-2025 Hematocrit (Bld) [Volume fraction] 39.1 % 37-47 [facility] Automated blood hematocrit (percentage) 39.1 % 37-47 [facility] Hemoglobin measurementOrdere d By: Leandro Sanchez on 01-01-2025 Hemoglobin (Bld) [Mass/Vol] 12.0 g/dL 12.0-15.0 [facility] Hemoglobin measurement 12.0 g/dL 12.0-15.0 [facility] Lipaseon 01-01-2025 Lipase [Catalytic activity/Vol] 75 U/L Normal 13-75 [facility] Comment on above: Result Comment: Jenny capellan note:LIPASE revised reference range effective 23.New Lipase methodology. Expected to produce lower valuesthan the previous assay method.NEW Reference Range: 13 - 75 U/L Performed By: #### L 500.4050, L501.2450, L100.0100 ####[facility] [address] [place], [address] Lipase measurementOrdered By : Leandro Sanchez on 01-01-2025 Lipase measurement 75 U/L 13-75 [facility] Lymphocytes Auto (Unsp spec) [#/Vol]Ordered By: Leandro Sanchez on 01-01-2025 Absolute lymphocyte count 3.90 X10^3/uL 0.83-4.51 [facility] Lymphocytes/100 WBC (Bld)Ord ered By: Leandro Sanchez on 01-01-2025 Blood lymphocytes/100 leukocytes 24 % 19-41 [facility] MCV (RBC) [Entitic vol]Order ed By: Leandro Sanchez on 01-01-2025 MCV (mean corpuscular volume) determination 86.7 fL 81-99 [facility] MCV (mean corpuscular volume ) determinationOrdered By: Leandro Sanchez on 01-01-2025 MCV (RBC) [Entitic vol] 86.7 fL 81-99 [facility] Mean corpuscular hemoglobin (MCH) determinationOrdered By: Leandro Sanchez on 01-01-2025 MCH (RBC) [Entitic mass] 26.6 pg Low 27.0-32.0 [facility] Mean corpuscular hemoglobin (MCH) determination 26.6 pg Low 27.0-32.0 [facility] Mean corpuscular hemoglobin concentration (MCHC) determinationOrdered By: Leandro Sanchez on 01-01-2025 Mean corpuscular hemoglobin concentration (MCHC) determination 30.7 g/dL Low 32-36 [facility] Mean platelet volume determi nationOrdered By: Leandro Sanchez on 01-01-2025 Mean platelet volume determination 8.9 fl 6.2-12.0 [facility] Microcytosis evaluation pane lOrdered By: Leandro Sanchez on 01-01-2025 Microcytosis evaluation panel 1+ [facility] Myelocyte %Ordered By: Leandro Sanchez on 01-01-2025 Myelocyte % 1 % 0-1 [facility] Neutrophil percentageOrdered By: Leandro Sanchez on 01-01-2025 Neutrophil percentage Not Reportable [facility] No Panel InformationOrdered By: Leandro Sanchez on 01-01-2025 13 U/L <32 [facility] Pathologist review Geovany (Unsp spec) [Interp]Ordered By: Leandro Sanchez on 01-01-2025 Review by pathologist Tiesha gotti [facility] Platelet countOrdered By: Jose Sanchez on 01-01-2025 Platelets (Bld) [#/Vol] 553 10*3/uL High 150-450 [facility] Platelet count 553 K/mm3 High 150-450 [facility] Potassium (Unsp spec) [Mass/ Vol]Ordered By: Leandro Sanchez on 01-01-2025 Potassium measurement (mass/volume) 4.0 mmol/L 3.3-5.1 [facility] Potassium measurement (mass/ volume)Ordered By: Leandro Sanchez on 01-01-2025 Potassium (Unsp spec) [Mass/Vol] 4.0 mmol/L 3.3-5.1 [facility] RBC Auto (Bld) [#/Vol]Ordere d By: Leandro Sanchez on 01-01-2025 RBC (Bld) [#/Vol] 4.51 10*6/uL 4.2-5.4 [facility] Automated blood erythrocyte count 4.51 M/mm3 4.2-5.4 [facility] Review by pathologistOrdered By: Leandro Sanchez on 01-01-2025 Pathologist review Geovany (Unsp spec) [Interp] N/A [facility] Segmented neutrophils/100 WB C (Bld)Ordered By: Leandro Sanchez on 01-01-2025 Blood segmented neutrophils/100 leukocytes 54 % 47-70 [facility] Serum creatinine measurement (mass/volume)Ordered By: Leandro Sanchez on 01-01-2025 Creatinine [Mass/Vol] 0.76 mg/dL 0.70-1.20 [facility] Serum globulin measurementOr dered By: Leandro Sanchez on 01-01-2025 Globulin (S) [Mass/Vol] 3.2 g/dL 2.2-4.2 [facility] Serum globulin measurement 3.2 g/dL 2.2-4.2 [facility] Serum glucose measurement (m ass/volume)Ordered By: Leandro Sanchez on 01-01-2025 Glucose [Mass/Vol] 111 mg/dL High 70-99 [facility] Serum or plasma alanine pimentel otransferase (ALT) measurementOrdered By: Leandro Sanchez on 01-01-2025 ALT [Catalytic activity/Vol] 8 U/L <35 [facility] Serum or plasma albumin esthela urement (mass/volume)Ordered By: Leandro Sanchez on 01-01-2025 Albumin [Mass/Vol] 3.7 g/dL 3.4-4.8 [facility] Serum or plasma albumin/glob ulin mass ratioOrdered By: Leandro Sanchez on 01-01-2025 Albumin/Globulin [Mass ratio] 1.2 {ratio} 0.9-2.4 [facility] Serum or plasma alkaline jose sphatase measurementOrdered By: Leandro Sanchez on 01-01-2025 ALP [Catalytic activity/Vol] 111 U/L High 35-104 [facility] Serum or plasma calcium esthela urement (mass/volume)Ordered By: Leandro Sanchez on 01-01-2025 Calcium [Mass/Vol] 9.0 mg/dL 7.6-11.0 [facility] Serum or plasma urea nitroge n measurement (mass/volume)Ordered By: Leandro Sanchez on 01-01-2025 Urea nitrogen [Mass/Vol] 7 mg/dL 4- [facility] Sodium levelOrdered By: Leandro Sanchez on 01-01-2025 Sodium [Moles/Vol] 130 mmol/L Low 133-145 [facility] Sodium level 130 mmol/L Low 133-145 [facility] Total cell countOrdered By: Leandro Sanchez on 01-01-2025 Cells counted Molgen (Bld/Tiss) [#] 100 MANUAL DIFF [facility] Total proteinOrdered By: Bhargavi Sanchez on 01-01-2025 Protein [Mass/Vol] 6.9 g/dL 5.9-8.4 [facility] Total protein 6.9 g/dL 5.9-8.4 [facility] Urea nitrogen [Mass/Vol]Orde red By: Leandro Sanchez on 01-01-2025 Serum or plasma urea nitrogen measurement (mass/volume) 7 mg/dL 4- [facility] White blood cell (WBC) count Ordered By: Leandro Sanchez on 01-01-2025 WBC (Bld) [#/Vol] 16.5 10*3/uL High 4.4-11.0 [facility] White blood cell (WBC) count 16.5 K/mm3 High 4.4-11.0 [facility] CNPNon 12-27-2024 CNPN Telephone (DDQ) GRACIE BANUELOS ([id number]) 1965 F Date Time Provider Department 12/27/24 JUAN SENIOR DDRupali During your visit today, we recorded the [...] Patient returned call. Can be reached at: [phone] (home) Juan Bloom LPN 12/28/2024 3:45 PM [...] Juan Senior as well Juan Bloom LPN Noemí Self 01/04/2025 3:16 PM Signed Patient called back. She would like to speak with Juna Senior to touch base. She has a pain management appt at 1:00 tomorrow. [phone] (home) Juan Senior APRN.CNP 01/05/2025 10:42 AM Signed Spoke with patient. She says she is feeling better but still experiencing abdominal pain. Has been going to ER in [place] for IV Morphine, they also give her PO Toradol to go home with. She has an appointment with pain management today. She is down to 5 L NC, reports she quit drinking and is down to 6 cigarettes a day. Order placed for [facility] to assess readiness for repeat ERCP procedure. Patient agreeable to plan with all questions answered. 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 Normal [facility] ALP [Catalytic activity/Vol] Ordered By: Mo Velasco on 12-24-2024 Serum or plasma alkaline phosphatase measurement 117 U/L High 35-104 [facility] ALT [Catalytic activity/Vol] Ordered By: Mo Velasco on 12-24-2024 Serum or plasma alanine aminotransferase (ALT) measurement 18 U/L <35 [facility] Absolute lymphocyte countOrd ered By: Mo Velasco on 12-24-2024 Lymphocytes Auto (Unsp spec) [#/Vol] 2.44 10*3/uL 0.83-4.51 [facility] Absolute neutrophil countOrd ered By: Mo Velasco on 03-29-2025 Absolute neutrophil count 14.1 X10^3/uL High 2.0-7.7 [facility] Albumin [Mass/Vol]Ordered By : Mo Velasco on 12-24-2024 Serum or plasma albumin measurement (mass/volume) 3.4 g/dL 3.4-4.8 [facility] Anion gap [Moles/Vol]Ordered By: Mo Velasco on 12-24-2024 Anion gap in Serum or Plasma 13 5-15 [facility] Anion gap in Serum or Plasma Ordered By: Mo Velasco on 12-24-2024 Anion gap [Moles/Vol] 13 mmol/L 5- [facility] Automated lymphocyte count a s percentage of total leukocytesOrdered By: Mo Velsaco on 12-24-2024 Lymphocytes/100 WBC Auto (Unsp spec) 13.4 % Low 19-41 [facility] BUN/creatinine ratioOrdered By: Mo Velasco on 12-24-2024 Urea nitrogen/Creatinine [Mass ratio] 4.2 mg/mg Low 10-20 [facility] BUN/creatinine ratio 4.2 RATIO Low 10-20 [facility] Basic Metabolic Profile (BMP )on 12-24-2024 BUN/CRE 4.2 RATIO Low 10-20 [facility] Comment on above: Performed By: #### L 100.0100, L501.2450, L500.2500, L500.3400 ####[facility] [address] [place], [address] Calcium [Mass/Vol] 9.3 mg/dL Normal 7.6-11.0 [facility] Comment on above: Performed By: #### L 100.0100, L501.2450, L500.2500, L500.3400 ####[facility] [address] [place], [address] Chloride [Moles/Vol] 97 mmol/L Low 98-108 [facility] Comment on above: Performed By: #### L 100.0100, L501.2450, L500.2500, L500.3400 ####[facility] [address] [place], [address] CO2 [Moles/Vol] 28.1 mmol/L Normal 21.0-32.0 [facility] Comment on above: Performed By: #### L 100.0100, L501.2450, L500.2500, L500.3400 ####[facility] [address] [place], [address] Creatinine [Mass/Vol] 0.77 mg/dL Normal 0.70-1.20 [facility] Comment on above: Performed By: #### L 100.0100, L501.2450, L500.2500, L500.3400 ####[facility] [address] [place], [address] ECRCL 63.47 ml/min Normal 50-250 [facility] Comment on above: Performed By: #### L 100.0100, L501.2450, L500.2500, L500.3400 ####[facility] [address] [place], [address] GAP 13 Normal 5-15 [facility] Comment on above: Performed By: #### L 100.0100, L501.2450, L500.2500, L500.3400 ####[facility] [address] [place], [address] GFR/1.73 sq M.predicted among non-blacks MDRD (S/P/Bld) [Vol rate/Area] 88 mL/min/{1.73_m2} Normal >60 [facility] Comment on above: Result Comment: mL/m in/1.73m2 CKD-EPI Creatinine Equation (2020) Performed By: #### L 100.0100, L501.2450, L500.2500, L500.3400 ####[facility] [address] [place], [address] Glucose [Mass/Vol] 131 mg/dL High 70-99 [facility] Comment on above: Performed By: #### L 100.0100, L501.2450, L500.2500, L500.3400 ####[facility] [address] [place], [address] Potassium [Moles/Vol] 4.1 mmol/L Normal 3.3-5.1 [facility] Comment on above: Performed By: #### L 100.0100, L501.2450, L500.2500, L500.3400 ####[facility] [address] [place], [address] Sodium [Moles/Vol] 137 mmol/L Normal 133-145 [facility] Comment on above: Performed By: #### L 100.0100, L501.2450, L500.2500, L500.3400 ####[facility] [address] [place], [address] Urea nitrogen [Mass/Vol] 3 mg/dL Low 4-19 [facility] Comment on above: Performed By: #### L 100.0100, L501.2450, L500.2500, L500.3400 ####[facility] [address] [place], [address] Basophil percentageOrdered B y: Mo Velasco on 12-24-2024 Basophils/100 WBC (Bld) 0.7 % 0-1 [facility] Basophil percentage 0.7 % 0-1 [facility] Bilirubin directOrdered By: Mo Velasco on 12-24-2024 Bilirubin.direct [Mass/Vol] 0.09 mg/dL 0.00-0.30 [facility] Bilirubin, totalOrdered By: Mo Velasco on 12-24-2024 Bilirubin [Mass/Vol] 0.19 mg/dL 0.00-1.30 [facility] Bilirubin, total 0.19 mg/dL 0.00-1.30 [facility] Bilirubin.direct [Mass/Vol]O rdered By: Mo Velasco on 12-24-2024 Bilirubin direct 0.09 mg/dL 0.00-0.30 [facility] CBC W/Diff, Automatedon 03-2 Absolute Lymph 2.44 X10 3/uL Normal 0.83-4.51 [facility] Comment on above: Performed By: #### L 100.0100, L501.2450, L500.2500, L500.3400 ####[facility] [address] [place], [address] Absolute Neut 14.1 X10 3/uL High 2.0-7.7 [facility] Comment on above: Performed By: #### L 100.0100, L501.2450, L500.2500, L500.3400 ####[facility] [address] [place], [address] Basophils/100 WBC (Bld) 0.7 % Normal 0-1 [facility] Comment on above: Performed By: #### L 100.0100, L501.2450, L500.2500, L500.3400 ####[facility] [address] [place], [address] Eosinophils/100 WBC (Bld) 2.3 % Normal 0-5 [facility] Comment on above: Performed By: #### L 100.0100, L501.2450, L500.2500, L500.3400 ####[facility] [address] [place], [address] Erythrocyte distribution width (RBC) [Ratio] 14.6 % Normal 11.6-14.6 [facility] Comment on above: Performed By: #### L 100.0100, L501.2450, L500.2500, L500.3400 ####[facility] [address] [place], [address] Hematocrit (Bld) [Volume fraction] 33.8 % Low 37-47 [facility] Comment on above: Performed By: #### L 100.0100, L501.2450, L500.2500, L500.3400 ####[facility] [address] [place], [address] Hemoglobin (Bld) [Mass/Vol] 10.8 g/dL Low 12.0-15.0 [facility] Comment on above: Performed By: #### L 100.0100, L501.2450, L500.2500, L500.3400 ####[facility] [address] [place], [address] IG% 0.900 Normal 0.0-0.9 [facility] Comment on above: Result Comment: IG% - Immature Granulocytes (promyelocytes, myelocytes andmetamyelocytes) > 1% indicates that a LEFT SHIFT is Present. Performed By: #### L 100.0100, L501.2450, L500.2500, L500.3400 ####[facility] [address] [place], [address] Lymphocytes/100 WBC (Bld) 13.4 % Low 19-41 [facility] Comment on above: Performed By: #### L 100.0100, L501.2450, L500.2500, L500.3400 ####[facility] [address] [place], [address] MCH (RBC) [Entitic mass] 26.9 pg Low 27.0-32.0 [facility] Comment on above: Performed By: #### L 100.0100, L501.2450, L500.2500, L500.3400 ####[facility] [address] [place], [address] MCHC (RBC) [Mass/Vol] 32.0 g/dL Normal 32-36 [facility] Comment on above: Performed By: #### L 100.0100, L501.2450, L500.2500, L500.3400 ####[facility] [address] [place], [address] MCV (RBC) [Entitic vol] 84.1 fL Normal 81-99 [facility] Comment on above: Performed By: #### L 100.0100, L501.2450, L500.2500, L500.3400 ####[facility] [address] [place], [address] Monocytes/100 WBC (Bld) 5.5 % Normal 0-10 [facility] Comment on above: Performed By: #### L 100.0100, L501.2450, L500.2500, L500.3400 ####[facility] [address] [place], [address] Neutrophils/100 WBC (Bld) 77.2 % High 47-70 [facility] Comment on above: Performed By: #### L 100.0100, L501.2450, L500.2500, L500.3400 ####[facility] [address] [place], [address] Nucleated RBC (Bld) [#/Vol] 0 10*3/uL Normal 0-5 [facility] Comment on above: Performed By: #### L 100.0100, L501.2450, L500.2500, L500.3400 ####[facility] [address] [place], [address] Platelet mean volume (Bld) [Entitic vol] 9.3 fL Normal 6.2-12.0 [facility] Comment on above: Performed By: #### L 100.0100, L501.2450, L500.2500, L500.3400 ####[facility] [address] [place], [address] Platelets (Bld) [#/Vol] 396 10*3/uL Normal 150-450 [facility] Comment on above: Performed By: #### L 100.0100, L501.2450, L500.2500, L500.3400 ####[facility] [address] [place], [address] RBC (Bld) [#/Vol] 4.02 10*6/uL Low 4.2-5.4 [facility] Comment on above: Performed By: #### L 100.0100, L501.2450, L500.2500, L500.3400 ####[facility] [address] [place], [address] RDW SD 45.1 fl High 35.1-43.9 [facility] Comment on above: Performed By: #### L 100.0100, L501.2450, L500.2500, L500.3400 ####[facility] [address] [place], [address] WBC (Bld) [#/Vol] 18.2 10*3/uL High 4.4-11.0 [facility] Comment on above: Performed By: #### L 100.0100, L501.2450, L500.2500, L500.3400 ####[facility] [address] [place], [address] Calcium [Mass/Vol]Ordered By : Mo Velasco on 12-24-2024 Serum or plasma calcium measurement (mass/volume) 9.3 mg/dL 7.6-11.0 [facility] Carbon dioxide, total [Moles /volume] in Central venous bloodOrdered By: Mo Velasco on 12-24-2024 CO2 [Moles/Vol] 28.1 mmol/L 21.0-32.0 [facility] Carbon dioxide, total [Moles/volume] in Central venous blood 28.1 mmol/L 21.0-32.0 [facility] Chloride assayOrdered By: Roman eVlasco on 12-24-2024 Chloride [Moles/Vol] 97 mmol/L Low 98-108 [facility] Chloride assay 97 mmol/L Low 98-108 [facility] Creatinine [Mass/Vol]Ordered By: Mo Velasco on 12-24-2024 Serum creatinine measurement (mass/volume) 0.77 mg/dL 0.70-1.20 [facility] Emergency Department Summary on 12-24-2024 Emergency Department Summary Normal [facility] Eosinophil percentageOrdered By: Mo Velasco on 12-24-2024 Eosinophils/100 WBC (Bld) 2.3 % 0-5 [facility] Eosinophil percentage 2.3 % 0-5 [facility] Erythrocyte distribution wid th (RBC) [Ratio]Ordered By: Mo Velasco on 12-24-2024 Erythrocyte distribution width ratio 14.6 % 11.6-14.6 [facility] Erythrocyte distribution wid th ratioOrdered By: Mo Velasco on 12-24-2024 Erythrocyte distribution width (RBC) [Ratio] 14.6 % 11.6-14.6 [facility] Erythrocyte distribution wid th standard deviationOrdered By: Mo Velasco on 12-24-2024 Erythrocyte distribution width (RBC) [Ratio] 45.1 fl High 35.1-43.9 [facility] Erythrocyte distribution width standard deviation 45.1 fl High 35.1-43.9 [facility] Estimation of creatinine frankie aranceOrdered By: Mo Velasco on 12-24-2024 Estimation of creatinine clearance 63.47 ml/min 50-250 [facility] GFR/1.73 sq M.predicted gregory g non-blacks MDRD (S/P/Bld) [Vol rate/Area]Ordered By: Mo Velasco on 12-24-2024 Glomerular filtration rate (GFR) estimation/1.73 sq m using serum, plasma, or whole b 88 >60 [facility] Glomerular filtration rate ( GFR) estimation/1.73 sq m using serum, plasma, or whole bOrdered By: Mo Velasco on 12-24-2024 GFR/1.73 sq M.predicted among non-blacks MDRD (S/P/Bld) [Vol rate/Area] 88 mL/min/{1.73_m2} >60 [facility] Glucose [Mass/Vol]Ordered By : Mo Velasco on 12-24-2024 Serum glucose measurement (mass/volume) 131 mg/dL High 70-99 [facility] Hematocrit Auto (Bld) [Volum e fraction]Ordered By: Mo Velasco on 12-24-2024 Hematocrit (Bld) [Volume fraction] 33.8 % Low 37-47 [facility] Automated blood hematocrit (percentage) 33.8 % Low 37-47 [facility] Hemoglobin measurementOrdere d By: Mo Velasco on 12-24-2024 Hemoglobin (Bld) [Mass/Vol] 10.8 g/dL Low 12.0-15.0 [facility] Hemoglobin measurement 10.8 g/dL Low 12.0-15.0 [facility] Immature granulocytes/100 WB C Auto (Bld)Ordered By: Mo Velasco on 12-24-2024 Immature granulocytes/100 WBC (Bld) 0.900 % 0.0-0.9 [facility] Automated immature granulocyte percentage 0.900 % 0.0-0.9 [facility] Lipaseon 12-24-2024 Lipase [Catalytic activity/Vol] 34 U/L Normal 13-75 [facility] Comment on above: Result Comment: Jenny capellan note:LIPASE revised reference range effective 23.New Lipase methodology. Expected to produce lower valuesthan the previous assay method.NEW Reference Range: 13 - 75 U/L Performed By: #### L 100.0100, L501.2450, L500.2500, L500.3400 ####[facility] [address] [place], [address] Lipase measurementOrdered By : Mo Velasco on 12-24-2024 Lipase measurement 34 U/L 13-75 [facility] Liver Profileon 12-24-2024 Albumin [Mass/Vol] 3.4 g/dL Normal 3.4-4.8 [facility] Comment on above: Performed By: #### L 100.0100, L501.2450, L500.2500, L500.3400 ####[facility] [address] [place], [address] ALK PHOS 117 U/L High 35-104 [facility] Comment on above: Performed By: #### L 100.0100, L501.2450, L500.2500, L500.3400 ####[facility] [address] [place], [address] ALT [Catalytic activity/Vol] 18 U/L Normal <=34 [facility] Comment on above: Performed By: #### L 100.0100, L501.2450, L500.2500, L500.3400 ####[facility] [address] [place], [address] AST [Catalytic activity/Vol] 16 U/L Normal <=31 [facility] Comment on above: Performed By: #### L 100.0100, L501.2450, L500.2500, L500.3400 ####[facility] [address] [place], [address] Bilirubin [Mass/Vol] 0.19 mg/dL Normal 0.00-1.30 [facility] Comment on above: Performed By: #### L 100.0100, L501.2450, L500.2500, L500.3400 ####[facility] [address] [place], [address] Bilirubin.direct [Mass/Vol] 0.09 mg/dL Normal 0.00-0.30 [facility] Comment on above: Performed By: #### L 100.0100, L501.2450, L500.2500, L500.3400 ####[facility] [address] [place], [address] Globulin (S) [Mass/Vol] 3.7 g/dL Normal 2.2-4.2 [facility] Comment on above: Performed By: #### L 100.0100, L501.2450, L500.2500, L500.3400 ####[facility] [address] [place], [address] T PROT 7.1 g/dL Normal 5.9-8.4 [facility] Comment on above: Performed By: #### L 100.0100, L501.2450, L500.2500, L500.3400 ####[facility] [address] [place], [address] Lymphocytes Auto (Unsp spec) [#/Vol]Ordered By: Mo Velasco on 12-24-2024 Absolute lymphocyte count 2.44 X10^3/uL 0.83-4.51 [facility] Lymphocytes/100 WBC Auto (Un sp spec)Ordered By: Mo Velasco on 12-24-2024 Automated lymphocyte count as percentage of total leukocytes 13.4 % Low 19-41 [facility] MCV (RBC) [Entitic vol]Order ed By: Mo Velasco on 12-24-2024 MCV (mean corpuscular volume) determination 84.1 fL 81-99 [facility] MCV (mean corpuscular volume ) determinationOrdered By: Mo Velasco on 12-24-2024 MCV (RBC) [Entitic vol] 84.1 fL 81-99 [facility] Mean corpuscular hemoglobin (MCH) determinationOrdered By: Mo Velasco on 12-24-2024 MCH (RBC) [Entitic mass] 26.9 pg Low 27.0-32.0 [facility] Mean corpuscular hemoglobin (MCH) determination 26.9 pg Low 27.0-32.0 [facility] Mean corpuscular hemoglobin concentration (MCHC) determinationOrdered By: Mo Velasco on 12-24-2024 Mean corpuscular hemoglobin concentration (MCHC) determination 32.0 g/dL 32-36 [facility] Mean platelet volume determi nationOrdered By: oM Velasco on 12-24-2024 Mean platelet volume determination 9.3 fl 6.2-12.0 [facility] Monocyte percentageOrdered B y: Mo Velasco on 12-24-2024 Monocytes/100 WBC (Bld) 5.5 % 0-10 [facility] Monocyte percentage 5.5 % 0-10 [facility] Neutrophil percentageOrdered By: Mo Velasco on 12-24-2024 Neutrophils/100 WBC (Bld) 77.2 % High 47-70 [facility] Neutrophil percentage 77.2 % High 47-70 [facility] No Panel InformationOrdered By: Mo Velasco on 12-24-2024 16 U/L <32 [facility] Nucleated red blood cell per centageOrdered By: Mo Velasco on 12-24-2024 Nucleated red blood cell percentage 0 % 0-5 [facility] Platelet countOrdered By: Roman Velasco on 12-24-2024 Platelets (Bld) [#/Vol] 396 10*3/uL 150-450 [facility] Platelet count 396 K/mm3 150-450 [facility] Potassium (Unsp spec) [Mass/ Vol]Ordered By: Mo Velasco on 12-24-2024 Potassium measurement (mass/volume) 4.1 mmol/L 3.3-5.1 [facility] Potassium measurement (mass/ volume)Ordered By: Mo Velasco on 12-24-2024 Potassium (Unsp spec) [Mass/Vol] 4.1 mmol/L 3.3-5.1 [facility] RBC Auto (Bld) [#/Vol]Ordere d By: Mo Velasco on 12-24-2024 RBC (Bld) [#/Vol] 4.02 10*6/uL Low 4.2-5.4 [facility] Automated blood erythrocyte count 4.02 M/mm3 Low 4.2-5.4 [facility] Serum creatinine measurement (mass/volume)Ordered By: Mo Velasco on 12-24-2024 Creatinine [Mass/Vol] 0.77 mg/dL 0.70-1.20 [facility] Serum globulin measurementOr dered By: Mo Velasco on 12-24-2024 Globulin (S) [Mass/Vol] 3.7 g/dL 2.2-4.2 [facility] Serum globulin measurement 3.7 g/dL 2.2-4.2 [facility] Serum glucose measurement (m ass/volume)Ordered By: Mo Velasco on 12-24-2024 Glucose [Mass/Vol] 131 mg/dL High 70-99 [facility] Serum or plasma alanine pimentel otransferase (ALT) measurementOrdered By: Mo Velasco on 12-24-2024 ALT [Catalytic activity/Vol] 18 U/L <35 [facility] Serum or plasma albumin esthela urement (mass/volume)Ordered By: Mo Velasco on 12-24-2024 Albumin [Mass/Vol] 3.4 g/dL 3.4-4.8 [facility] Serum or plasma alkaline jose sphatase measurementOrdered By: Mo Velasco on 12-24-2024 ALP [Catalytic activity/Vol] 117 U/L High 35-104 [facility] Serum or plasma calcium esthela urement (mass/volume)Ordered By: Mo Velasco on 12-24-2024 Calcium [Mass/Vol] 9.3 mg/dL 7.6-11.0 [facility] Serum or plasma urea nitroge n measurement (mass/volume)Ordered By: Mo Velasco on 12-24-2024 Urea nitrogen [Mass/Vol] 3 mg/dL Low 4-19 [facility] Sodium levelOrdered By: Mo Velasco on 12-24-2024 Sodium [Moles/Vol] 137 mmol/L 133-145 [facility] Sodium level 137 mmol/L 133-145 [facility] Total proteinOrdered By: Bruce Velasco on 12-24-2024 Protein [Mass/Vol] 7.1 g/dL 5.9-8.4 [facility] Total protein 7.1 g/dL 5.9-8.4 [facility] Urea nitrogen [Mass/Vol]Orde red By: Mo Velasco on 12-24-2024 Serum or plasma urea nitrogen measurement (mass/volume) 3 mg/dL Low 4-19 [facility] White blood cell (WBC) count Ordered By: Mo Velasco on 12-24-2024 WBC (Bld) [#/Vol] 18.2 10*3/uL High 4.4-11.0 [facility] White blood cell (WBC) count 18.2 K/mm3 High 4.4-11.0 [facility] CNPNon 12-23-2024 CNPN Telephone (GAPRA3) GRACIE BANUELOS ([id number]) 1965 F Date Time Provider Department 12/23/24 RAISA JIMENEZ [facility] During your visit today, we recorded the following information about you: Raisa Jimenez, RN 12/23/2024 12:32 PM Signed Spoke with pt and went over instructions and directions for her appt on 12/27/24. Pt wrote down verbal instructions and confirmed understanding Raisa Jimenez MA (Nell) Allergies As of Date: 12/23/2024 Noted Allergy Reaction BACTRIM (SULFAMETHOXAZOLE-TRIME TH*11/28/2022 4 - Hives HYDROCODONE 08/02/2020 9 - Itching PENICILLINS 07/07/2006 14 - Other: See Comments Comments: hives VALIUM (DIAZEPAM) 11/02/2013 14 - Other: See Comments Comments: cross reaction with alcohol addiction Date Reviewed: 12/19/2024 Reviewed by: Tara Youngblood APRN.RN FACULTY - Fully Assessed Reason for Visit: Reminder Call [9341] Cmt: Missed call Prescriptions as of 12/23/2024 [...] stress female [N39.3] 11/24/2014 HPV test positive [[id number]] 11/24/2014 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 Author Type: Registered Nurse Type: Nursing Progress Note Filed: 12/20/2024 14:56 Note Text: Attempted to reach the patient at the contact number that they provided [phone] (home) . Unable to speak with patient so without identifying the patient the following information was left on their voice mail: Date of procedure, location and report time Prep instructions A message was left informing the patient/patient customer account representative they must have a responsible adult [...] Number to call with questions or concerns [phone] Number to call to cancel their procedure [phone] Carroll Leblanc RN Normal [facility] CBC W Auto Differential pane l (Bld)on 12-19-2024 Basophils (Bld) [#/Vol] 0.23 10*3/uL High <0.11 [facility] Comment on above: Order Comment: Speci men Type: BLOOD SPECIMENOrdering Facility: [facility] Address: [address] [place] [address] Performed By: #### 5 7021-8 ####[facility] LABCLIA [id number] [place] [address] [place] Basophils/100 WBC (Bld) 0.9 % Normal [facility] Comment on above: Order Comment: Speci men Type: BLOOD SPECIMENOrdering Facility: [facility] Address: [address] [place] [address] Performed By: #### 5 7021-8 ####[facility] LABCLIA [id number] [place] [address] [place] Dacrocytes LM Ql (Bld) Few Normal Cl [facility] Comment on above: Order Comment: Speci men Type: BLOOD SPECIMENOrdering Facility: [facility] Address: [address] [place] [address] Performed By: #### 5 7021-8 ####[facility] LABCLIA [id number] [address] [place] Differential cell count method Nom (Bld) Manual Normal [facility] Comment on above: Order Comment: Speci men Type: BLOOD SPECIMENOrdering Facility: [facility] Address: [address] [place] [address] Performed By: #### 5 7021-8 ####[facility] LABCLIA [id number] [place] [address] [place] Eosinophils (Bld) [#/Vol] 0.00 10*3/uL Normal <0.46 [facility] Comment on above: Order Comment: Speci men Type: BLOOD SPECIMENOrdering Facility: [facility] Address: [address] [place] [address] Performed By: #### 5 7021-8 ####[facility] LABCLIA [id number] [address] [place] [address] [place] Eosinophils/100 WBC (Bld) 0.0 % Normal [facility] Comment on above: Order Comment: Speci men Type: BLOOD SPECIMENOrdering Facility: [facility] Address: [address] [place] [address] Performed By: #### 5 7021-8 ####[facility] LABCLIA [id number] [address], [place] [address] [place] Erythrocyte distribution width (RBC) [Ratio] 14.7 % Normal 11.5-15.0 [facility] Comment on above: Order Comment: Speci men Type: BLOOD SPECIMENOrdering Facility: [facility] Address: [address] [place] [address] Performed By: #### 5 7021-8 ####[facility] LABCLIA [id number] [address], [place] [address] [place] Hematocrit (Bld) [Volume fraction] 38.4 % Normal 36.0-46.0 [facility] Comment on above: Order Comment: Speci men Type: BLOOD SPECIMENOrdering Facility: [facility] Address: [address] [place] [address] Performed By: #### 5 7021-8 ####[facility] LABCLIA [id number] [address], [place] [address] [place] Hemoglobin (Bld) [Mass/Vol] 11.6 g/dL Normal 11.5-15.5 [facility] Comment on above: Order Comment: Speci men Type: BLOOD SPECIMENOrdering Facility: [facility] Address: [address] [place] [address] Performed By: #### 5 7021-8 ####[facility] LABCLIA [id number] [address], [facility] [place] Lymphocytes (Bld) [#/Vol] 3.58 10*3/uL Normal 1.00-4.00 [facility] Comment on above: Order Comment: Speci men Type: BLOOD SPECIMENOrdering Facility: [facility] Address: [address] [place] [address] Performed By: #### 5 7021-8 ####[facility] LABIA [id number] [place] [address] [place] Lymphocytes/100 WBC (Bld) 14.0 % Normal [facility] Comment on above: Order Comment: Speci men Type: BLOOD SPECIMENOrdering Facility: [facility] Address: [address] [place] [address] Performed By: #### 5 7021-8 ####[facility] LABIA [id number] [place] [address] [place] MCH (RBC) [Entitic mass] 26.7 pg Normal 26.0-34.0 [facility] Comment on above: Order Comment: Speci men Type: BLOOD SPECIMENOrdering Facility: [facility] Address: [address] [place] [address] Performed By: #### 5 7021-8 ####[facility] LABIA [id number] [place] [address] [place] MCHC (RBC) [Mass/Vol] 30.2 g/dL Low 30.5-36.0 [facility] Comment on above: Order Comment: Speci men Type: BLOOD SPECIMENOrdering Facility: [facility] Address: [address] [place] [address] Performed By: #### 5 7021-8 ####[facility] LABIA [id number] [place] [address] [place] MCV (RBC) [Entitic vol] 88.5 fL Normal 80.0-100.0 [facility] Comment on above: Order Comment: Speci men Type: BLOOD SPECIMENOrdering Facility: [facility] Address: [address] [place] [address] Performed By: #### 5 7021-8 ####[facility] LABCLIA [id number] [place] [address] [place] Metamyelocytes/100 WBC (Bld) 0.9 % Normal [facility] Comment on above: Order Comment: Speci men Type: BLOOD SPECIMENOrdering Facility: [facility] Address: [address] [place] [address] Performed By: #### 5 7021-8 ####[facility] LABCLIA [id number] [place] [address] [place] Monocytes (Bld) [#/Vol] 0.90 10*3/uL High <0.87 [facility] Comment on above: Order Comment: Speci men Type: BLOOD SPECIMENOrdering Facility: [facility] Address: [address] [place] [address] Performed By: #### 5 7021-8 ####[facility] LABIA [id number] [place] [address] [place] Monocytes/100 WBC (Bld) 3.5 % Normal [facility] Comment on above: Order Comment: Speci men Type: BLOOD SPECIMENOrdering Facility: [facility] Address: [address] [place] [address] Performed By: #### 5 7021-8 ####[facility] LABCLIA [id number] [place] [address] [place] Neutrophils (Bld) [#/Vol] 20.64 10*3/uL High 1.45-7.50 [facility] Comment on above: Order Comment: Speci men Type: BLOOD SPECIMENOrdering Facility: [facility] Address: [address] [place] [address] Performed By: #### 5 7021-8 ####[facility] LABIA [id number] [place] [address] [place] Neutrophils/100 WBC (Bld) 80.7 % Normal [facility] Comment on above: Order Comment: Speci men Type: BLOOD SPECIMENOrdering Facility: [facility] Address: [address] [place] [address] Performed By: #### 5 7021-8 ####[facility] LABCLIA [id number] [facility] [address], [place] [address] [place] Nucleated RBC (Bld) [#/Vol] 10*3/uL Normal <0.01 [facility] Comment on above: Order Comment: Speci men Type: BLOOD SPECIMENOrdering Facility: [facility] Address: [address] [place] [address] Performed By: #### 5 7021-8 ####[facility] LABCLIA [id number] [address], [place] [address] [place] Nucleated RBC/100 WBC (Bld) [Ratio] 0.0 /100 WBC Normal [facility] Comment on above: Order Comment: Speci men Type: BLOOD SPECIMENOrdering Facility: [facility] Address: [address] [place] [address] Performed By: #### 5 7021-8 ####[facility] LABCLIA [id number] [address], [place] [address] [place] Ovalocytes LM Ql (Bld) Few Normal Cl [facility] Comment on above: Order Comment: Speci men Type: BLOOD SPECIMENOrdering Facility: [facility] Address: [address] [place] [address] Performed By: #### 5 7021-8 ####[facility] LABCLIA [id number] [place] [address] [place] Platelet mean volume (Bld) [Entitic vol] 10.9 fL Normal 9.0-12.7 [facility] Comment on above: Order Comment: Speci men Type: BLOOD SPECIMENOrdering Facility: [facility] Address: [address] [place] [address] Performed By: #### 5 7021-8 ####[facility] LABCLIA [id number] [address] [place] [address] [place] Platelets (Bld) [#/Vol] 331 10*3/uL Normal 150-400 [facility] Comment on above: Order Comment: Speci men Type: BLOOD SPECIMENOrdering Facility: [facility] Address: [address] [place] [address] Performed By: #### 5 7021-8 ####[facility] LABCLIA [id number] [address] [place] [address] [place] Platelets Estimate (Bld) [#/Vol] Adequate Normal [facility] Comment on above: Order Comment: Speci men Type: BLOOD SPECIMENOrdering Facility: [facility] Address: [address] [place] [address] Performed By: #### 5 7021-8 ####[facility] LABCLIA [id number] [address] [place] [address] [place] Polychromasia LM Ql (Bld) Slight Normal [facility] Comment on above: Order Comment: Speci men Type: BLOOD SPECIMENOrdering Facility: [facility] Address: [address] [place] [address] Performed By: #### 5 7021-8 ####[facility] LABCLIA [id number] [address] [place] [address] [place] RBC (Bld) [#/Vol] 4.34 10*6/uL Normal 3.90-5.20 [facility] Comment on above: Order Comment: Speci men Type: BLOOD SPECIMENOrdering Facility: [facility] Address: [address] [place] [address] Performed By: #### 5 7021-8 ####[facility] LABCLIA [id number] [address] [place] [address] [place] RED CELL MORPH Reviewed: see result s of individual morphologies Normal [facility] Comment on above: Order Comment: Speci men Type: BLOOD SPECIMENOrdering Facility: [facility] Address: [address] [place] [address] Performed By: #### 5 7021-8 ####[facility] LABCLIA [id number] [place] [address] [place] Target cells LM Ql (Bld) Few Normal [facility] Comment on above: Order Comment: Speci men Type: BLOOD SPECIMENOrdering Facility: [facility] Address: [address] [place] [address] Performed By: #### 5 7021-8 ####[facility] LABIA [id number] [place] [address] [place] WBC (Bld) [#/Vol] 25.58 10*3/uL High 3.70-11.[address] [facility] Comment on above: Order Comment: Speci men Type: BLOOD SPECIMENOrdering Facility: [facility] Address: [address] [place] [address] Performed By: #### 5 7021-8 ####[facility] LABIA [id number] [place] [address] [place] WBC Left Shift Ql (Bld) Present [facility] Comment on above: Order Comment: Speci men Type: BLOOD SPECIMENOrdering Facility: [facility] Address: [address] [place] [address] Performed By: #### 5 7021-8 ####[facility] LABIA [id number] [place] [id number] [place] CNOVon 12-19-2024 CNOV Office Visit (FAMPWS ) GRACIE BANUELOS ([id number]) 1965 F Date Time Provider Department 12/19/24 2:40 PM TARA YOUNGBLOOD During your visit today, we recorded the following information about you: Pulse Respiration Blood pressure Weight 103/minute 16/minute 118/62 62.1 kg Tara Youngblood, REGIONAL LIAISON.RN FACULTY 12/19/2024 3:33 PM Signed Chief Complaint Patient presents with: hospital f/up HPI Gracie Banuelos is a 59 year old female who presents here today for Above Complaints. Gracie is an established patient of Dr. Brittni MD. Concerns today.. Hospital follow-up--- [facility] admission from 12/04-12/12 d/t acute [...] help her quit. 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 Chronic recurrent pancreatitis -- had recent surgery [...] failure (HCC) COPD (chronic obstructive pulmonary disease) ([facility]) 05/25/2012 DDD (degenerative disc disease), cervical 09/03/2018 [...] Stage 3 severe COPD by GOLD classification ([facility]) 2018 Tobacco use greater than 30 years [...] Other: See (more content not included)... Normal [facility] 12-19-2024 CNPN Telephone (INTMWS) BANUELOSGRACIE Salvatore ([id number]) 1965 F Date Time Provider Department 12/19/24 MISBAH ELKINS INTWS During your visit today, we recorded the following information about you: Marge Perkins, SARWAT 12/19/2024 6:52 PM Signed Pt called in for x-ray results. I let Pt know they are not back in yet and provider would call her when they are. Soila Easton APRN.RN FACULTY 12/22/2024 8:08 AM Signed I am assuming this is regards to the chest xray as ordered by tara Youngblood. If so please see her result note on the xray. If not, please specify which xray I need to address. Thank you Soila Easton APRN.[facility] Scott EileenCHERELLE doshi 12/22/2024 9:01 AM Signed Message sent. Allergies As of Date: 12/19/2024 Noted Allergy Reaction BACTRIM (SULFAMETHOXAZOLE-TRIME TH*11/28/2022 4 - Hives HYDROCODONE 08/02/2020 9 - Itching PENICILLINS 07/07/2006 14 - Other: See Comments Comments: hives VALIUM (DIAZEPAM) 11/02/2013 14 - Other: See Comments Comments: cross reaction with alcohol addiction Date Reviewed: 12/19/2024 Reviewed by: Tara Youngblood APRN.[facility] - Fully Assessed Reason for Visit: Results [...] stress female [N39.3] 11/24/2014 HPV test positive [[id number]] 11/24/2014 Alcohol dependence in remission (HCC) [F10.21] [...] Encounter Status:Hiral (more content not included)... Normal [facility] metabolic 2000 panelon 12-19-2024 Albumin [Mass/Vol] 3.6 g/dL Low 3.9-4.9 [facility] Comment on above: Order Comment: Speci men Type: BLOOD SPECIMENOrdering Facility: [facility] Address: [address] [place] [id number] Performed By: #### 2 4323-8, 3040-3 ####[facility] LABCLIA [id number] [facility] [place] [id number] [place] ALP [Catalytic activity/Vol] 97 U/L Normal 34-123 [facility] Comment on above: Order Comment: Speci men Type: BLOOD SPECIMENOrdering Facility: [facility] Address: [address] [place] [address] Performed By: #### 2 4323-8, 3039-3 ####[facility] LABCLIA [id number] [place] [address] [place] ALT [Catalytic activity/Vol] 16 U/L Normal 7-38 [facility] Comment on above: Order Comment: Speci men Type: BLOOD SPECIMENOrdering Facility: [facility] Address: [address] [place] [address] Performed By: #### 2 4323-8, 0-3 ####[facility] LABCLIA [id number] [facility] [place] [id number] [place] Anion gap [Moles/Vol] 13 mmol/L Normal 8-15 [facility] Comment on above: Order Comment: Speci men Type: BLOOD SPECIMENOrdering Facility: [facility] Address: [address] [place] [id number] Performed By: #### 2 4323-8, 3040-3 ####[facility] LABCLIA [id number] [facility] [place] [address] [place] AST [Catalytic activity/Vol] 14 U/L Normal 13-35 [facility] Comment on above: Order Comment: Speci men Type: BLOOD SPECIMENOrdering Facility: [facility] Address: [address] [place] [address] Performed By: #### 2 4323-8, 3039-3 ####[facility] LABCLIA [id number] [address] [address] [place] Bilirubin [Mass/Vol] 0.3 mg/dL Normal 0.2-1.[address] [facility] Comment on above: Order Comment: Speci men Type: BLOOD SPECIMENOrdering Facility: [facility] Address: [address] [place], [place] [address] Performed By: #### 2 4323-8, 3039-3 ####[facility] LABCLIA [id number] [place] [id number] [place] Calcium [Mass/Vol] 8.9 mg/dL Normal 8.5-10.2 [facility] Comment on above: Order Comment: Speci men Type: BLOOD SPECIMENOrdering Facility: [facility] Address: [address] [place], [place] [address] Performed By: #### 2 4323-8, 3039-3 ####[facility] LABCLIA [id number] [place] [address] [place] Chloride [Moles/Vol] 97 mmol/L Low 98-[address] [facility] Comment on above: Order Comment: Speci men Type: BLOOD SPECIMENOrdering Facility: [facility] Address: [address] [place], [place] [address] Performed By: #### 2 4323-8, 3039-3 ####[facility] LABCLIA [id number] [address] [address] [place] CO2 [Moles/Vol] 30 mmol/L Normal 22-30 [facility] Comment on above: Order Comment: Speci men Type: BLOOD SPECIMENOrdering Facility: [facility] Address: [address] [place], [place] [address] Performed By: #### 2 4323-8, 3039-3 ####[facility] LABCLIA [id number] [address] [address] [place] Creatinine [Mass/Vol] 0.81 mg/dL Normal 0.58-0.96 [facility] Comment on above: Order Comment: Reggie fajardo Type: BLOOD SPECIMENOrdering Facility: [facility] Address: [address] [place] [address] Performed By: #### 2 4323-8, 0-3 ####[facility] [id number] [place] [address] [place] [facility] [place] Creatinine and Glomerular filtration rate.predicted panel (S/P/Bld) 83 mL/min/1.73m??? Normal >=60 [facility] Comment on above: Order Comment: Reggie fajardo Type: BLOOD SPECIMENOrdering Facility: [facility] Address: [address] [place] [address] Result Comment: Pavan mated Glomerular Filtration Rate [...] GFR. Performed By: #### 2 4323-8, 3039-3 ####[facility] [id number] [address] [address] [place] Glucose [Mass/Vol] 86 mg/dL Normal 74-99 [facility] Comment on above: Order Comment: Reggie tana Type: BLOOD SPECIMENOrdering Facility: [facility] Address: [address] [place] [address] Result Comment: The [place] [employer] (ADA) provides guidance for cutoff [...] Standards of Medical Care in Diabetes 2016, [place] [employer]. Diabetes Care. 2016.39(Suppl 1). Performed By: #### 2 4323-8, 0-3 ####[facility] LABCLIA [id number] [address] [address] [place] Potassium [Moles/Vol] 4.0 mmol/L Normal 3.7-5.1 [facility] Comment on above: Order Comment: Speci men Type: BLOOD SPECIMENOrdering Facility: [facility] Address: [address] [place] [address] Performed By: #### 2 4323-8, 3039-3 ####[facility] LABCLIA [id number] [address] [address] [place] Protein [Mass/Vol] 6.1 g/dL Low 6.3-8.0 [facility] Comment on above: Order Comment: Speci men Type: BLOOD SPECIMENOrdering Facility: [facility] Address: [address] [place] [address] Performed By: #### 2 4323-8, 3039-3 ####[facility] LABCLIA [id number] [address] [address] [place] Sodium [Moles/Vol] 140 mmol/L Normal 136-144 [facility] Comment on above: Order Comment: Speci men Type: BLOOD SPECIMENOrdering Facility: [facility] Address: [address] [place], [place] [address] Performed By: #### 2 4323-8, 3039-3 ####[facility] LABCLIA [id number] [facility] [address] [address] [place] Urea nitrogen [Mass/Vol] 8 mg/dL Normal 7-21 [facility] Comment on above: Order Comment: Speci men Type: BLOOD SPECIMENOrdering Facility: [facility] Address: [address] [place] [address] Performed By: #### 2 4323-8, 3040-3 ####[facility] LABCLIA [id number] [place] [id number] [place] Lipase SerPl-cCncon 12-20-19 25 Lipase [Catalytic activity/Vol] 32 U/L Normal 16-61 [facility] Comment on above: Order Comment: Speci men Type: BLOOD SPECIMENOrdering Facility: [facility] Address: [address] [place] [address] Performed By: #### 2 4323-8, 3040-3 ####[facility] LABCLIA [id number] [place] [address] [place] XR CHEST 2V FRONTAL/LATon XR CHEST 2V [...] tissues: Unremarkable. IMPRESSION: No acute radiographic abnormality. Specialist Managers: PSCB Transcribe Date/Time: Dec 21 2024 4:06P Dictated by : JEAN-CLAUDE MANRIQUEZ MD This examination was interpreted and the report reviewed and electronically signed by: JEAN-CLAUDE MANRIQUEZ MD on Dec 21 2024 4:07PM EST [id number] Normal [facility] Basic Metabolic Profile (BMP )on 12-17-2024 BUN Normal 4-19 [facility] Comment on above: Result Comment: Canc elled via OM: Order cancelled - Patient discharged Performed By: #### L 500.2500, L100.0100 ####[facility] [id number] [place], [address] BUN/CRE Normal 10-20 [facility] Comment on above: Result Comment: Canc elled via OM: Order cancelled - Patient discharged Performed By: #### L 500.2500, L100.0100 ####[facility] [id number] [place], [address] Calcium Normal 7.6-11.0 [facility] Comment on above: Result Comment: Canc elled via OM: Order cancelled - Patient discharged Performed By: #### L 500.2500, L100.0100 ####[facility] [address] [place], [address] CL Normal 98-108 [facility] Comment on above: Result Comment: Canc elled via OM: Order cancelled - Patient discharged Performed By: #### L 500.2500, L100.0100 ####[facility] [address] [place], [address] CO2 Normal 21.0-32.0 [facility] Comment on above: Result Comment: Canc elled via OM: Order cancelled - Patient discharged Performed By: #### L 500.2500, L100.0100 ####[facility] [address] [place], [address] CREAT,SERUM Normal 0.70-1.20 [facility] Comment on above: Result Comment: Canc elled via OM: Order cancelled - Patient discharged Performed By: #### L 500.2500, L100.0100 ####[facility] [address] [place], [address] eGFR Normal >60 [facility] Comment on above: Result Comment: Canc elled via OM: Order cancelled - Patient discharged Performed By: #### L 500.2500, L100.0100 ####[facility] [address] [place], [address] GAP Normal 5-15 [facility] Comment on above: Result Comment: Canc elled via OM: Order cancelled - Patient discharged Performed By: #### L 500.2500, L100.0100 ####[facility] [address] [place], [address] GLU Normal 70-99 [facility] Comment on above: Result Comment: Canc elled via OM: Order cancelled - Patient discharged Performed By: #### L 500.2500, L100.0100 ####[facility] [address] [place], [address] Potassium Normal 3.3-5.1 [facility] Comment on above: Result Comment: Canc elled via OM: Order cancelled - Patient discharged Performed By: #### L 500.2500, L100.0100 ####[facility] [address] [place], [address] Basic Metabolic Profile (BMP) Normal 133-145 [facility] Comment on above: Result Comment: Canc elled via OM: Order cancelled - Patient discharged Performed By: #### L 500.2500, L100.0100 ####[facility] [address] [place], [address] CBC W/Diff, Automatedon 03-2 Absolute Neut Normal 2.0-7.7 [facility] Comment on above: Result Comment: Canc elled via OM: Order cancelled - Patient discharged Performed By: #### L 500.2500, L100.0100 ####[facility] [address] [place], [address] HCT Normal 37-47 [facility] Comment on above: Result Comment: Canc elled via OM: Order cancelled - Patient discharged Performed By: #### L 500.2500, L100.0100 ####[facility] [address] [place], [address] HGB Normal 12.0-15.0 [facility] Comment on above: Result Comment: Canc elled via OM: Order cancelled - Patient discharged Performed By: #### L 500.2500, L100.0100 ####[facility] [address] [place], [address] MCH Normal 27.0-32.0 [facility] Comment on above: Result Comment: Canc elled via OM: Order cancelled - Patient discharged Performed By: #### L 500.2500, L100.0100 ####[facility] [address] [place], [address] MCHC Normal 32-36 [facility] Comment on above: Result Comment: Canc elled via OM: Order cancelled - Patient discharged Performed By: #### L 500.2500, L100.0100 ####[facility] [address] [place], [address] MCV Normal 81-99 [facility] Comment on above: Result Comment: Canc elled via OM: Order cancelled - Patient discharged Performed By: #### L 500.2500, L100.0100 ####[facility] [address] [place], [address] NEUT% Normal 47-70 [facility] Comment on above: Result Comment: Canc elled via OM: Order cancelled - Patient discharged Performed By: #### L 500.2500, L100.0100 ####[facility] [address] [place], [address] PLT Normal 150-450 [facility] Comment on above: Result Comment: Canc elled via OM: Order cancelled - Patient discharged Performed By: #### L 500.2500, L100.0100 ####[facility] [address] [place], [address] RBC Normal 4.2-5.4 [facility] Comment on above: Result Comment: Canc elled via OM: Order cancelled - Patient discharged Performed By: #### L 500.2500, L100.0100 ####[facility] [address] [place], [address] RDW CV Normal 11.6-14.6 [facility] Comment on above: Result Comment: Canc elled via OM: Order cancelled - Patient discharged Performed By: #### L 500.2500, L100.0100 ####[facility] [address] [place], [address] RDW SD Normal 35.1-43.9 [facility] Comment on above: Result Comment: Canc elled via OM: Order cancelled - Patient discharged Performed By: #### L 500.2500, L100.0100 ####[facility] [address] [place], [address] WBC Normal 4.4-11.0 [facility] Comment on above: Result Comment: Canc elled via OM: Order cancelled - Patient discharged Performed By: #### L 500.2500, L100.0100 ####[facility] [address] [place], [address] Basic Metabolic Profile (BMP )on 12-16-2024 BUN Normal 4-19 [facility] Comment on above: Result Comment: Canc elled via OM: Order cancelled - Patient discharged Performed By: #### L 500.2500, L100.0100 ####[facility] [address] [place], [address] BUN/CRE Normal 10-20 [facility] Comment on above: Result Comment: Canc elled via OM: Order cancelled - Patient discharged Performed By: #### L 500.2500, L100.0100 ####[facility] [address] [place], [address] Calcium Normal 7.6-11.0 [facility] Comment on above: Result Comment: Canc elled via OM: Order cancelled - Patient discharged Performed By: #### L 500.2500, L100.0100 ####[facility] [address] [place], [address] CL Normal 98-108 [facility] Comment on above: Result Comment: Canc elled via OM: Order cancelled - Patient discharged Performed By: #### L 500.2500, L100.0100 ####[facility] [address] [place], [address] CO2 Normal 21.0-32.0 [facility] Comment on above: Result Comment: Canc elled via OM: Order cancelled - Patient discharged Performed By: #### L 500.2500, L100.0100 ####[facility] [address] [place], [address] CREAT,SERUM Normal 0.70-1.20 [facility] Comment on above: Result Comment: Canc elled via OM: Order cancelled - Patient discharged Performed By: #### L 500.2500, L100.0100 ####[facility] [address] [place], [address] eGFR Normal >60 [facility] Comment on above: Result Comment: Canc elled via OM: Order cancelled - Patient discharged Performed By: #### L 500.2500, L100.0100 ####[facility] [address] [place], [address] GAP Normal 5-15 [facility] Comment on above: Result Comment: Canc elled via OM: Order cancelled - Patient discharged Performed By: #### L 500.2500, L100.0100 ####[facility] [address] [place], [address] GLU Normal 70-99 [facility] Comment on above: Result Comment: Canc elled via OM: Order cancelled - Patient discharged Performed By: #### L 500.2500, L100.0100 ####[facility] [address] [place], [address] Potassium Normal 3.3-5.1 [facility] Comment on above: Result Comment: Canc elled via OM: Order cancelled - Patient discharged Performed By: #### L 500.2500, L100.0100 ####[facility] [address] [place], [address] Basic Metabolic Profile (BMP) Normal 133-145 [facility] Comment on above: Result Comment: Canc elled via OM: Order cancelled - Patient discharged Performed By: #### L 500.2500, L100.0100 ####[facility] [address] [place], [address] CBC W/Diff, Automatedon 03-2 Absolute Neut Normal 2.0-7.7 [facility] Comment on above: Result Comment: Canc elled via OM: Order cancelled - Patient discharged Performed By: #### L 500.2500, L100.0100 ####[facility] [address] [place], [address] HCT Normal 37-47 [facility] Comment on above: Result Comment: Canc elled via OM: Order cancelled - Patient discharged Performed By: #### L 500.2500, L100.0100 ####[facility] [address] [place], [address] HGB Normal 12.0-15.0 [facility] Comment on above: Result Comment: Canc elled via OM: Order cancelled - Patient discharged Performed By: #### L 500.2500, L100.0100 ####[facility] [address] [place], [address] MCH Normal 27.0-32.0 [facility] Comment on above: Result Comment: Canc elled via OM: Order cancelled - Patient discharged Performed By: #### L 500.2500, L100.0100 ####[facility] [address] [place], [address] MCHC Normal 32-36 [facility] Comment on above: Result Comment: Canc elled via OM: Order cancelled - Patient discharged Performed By: #### L 500.2500, L100.0100 ####[facility] [address] [place], [address] MCV Normal 81-99 [facility] Comment on above: Result Comment: Canc elled via OM: Order cancelled - Patient discharged Performed By: #### L 500.2500, L100.0100 ####[facility] [address] [place], [address] NEUT% Normal 47-70 [facility] Comment on above: Result Comment: Canc elled via OM: Order cancelled - Patient discharged Performed By: #### L 500.2500, L100.0100 ####[facility] [address] [place], [address] PLT Normal 150-450 [facility] Comment on above: Result Comment: Canc elled via OM: Order cancelled - Patient discharged Performed By: #### L 500.2500, L100.0100 ####[facility] [address] [place], [address] RBC Normal 4.2-5.4 [facility] Comment on above: Result Comment: Canc elled via OM: Order cancelled - Patient discharged Performed By: #### L 500.2500, L100.0100 ####[facility] [address] [place], [address] RDW CV Normal 11.6-14.6 [facility] Comment on above: Result Comment: Canc elled via OM: Order cancelled - Patient discharged Performed By: #### L 500.2500, L100.0100 ####[facility] [address] [place], [address] RDW SD Normal 35.1-43.9 [facility] Comment on above: Result Comment: Canc elled via OM: Order cancelled - Patient discharged Performed By: #### L 500.2500, L100.0100 ####[facility] [address] [place], [address] WBC Normal 4.4-11.0 [facility] Comment on above: Result Comment: Canc elled via OM: Order cancelled - Patient discharged Performed By: #### L 500.2500, L100.0100 ####[facility] [address] [place], [address] Gastroenterology Visit Repor ton 12-16-2024 Gastroenterology Visit Report Normal [facility] Basic Metabolic Profile (BMP )on 12-15-2024 BUN Normal 4-19 [facility] Comment on above: Result Comment: Canc elled via OM: Order cancelled - Patient discharged Performed By: #### L 500.2500, L100.0100 ####[facility] [address] [place], [address] BUN/CRE Normal 10-20 [facility] Comment on above: Result Comment: Canc elled via OM: Order cancelled - Patient discharged Performed By: #### L 500.2500, L100.0100 ####[facility] [address] [place], [address] Calcium Normal 7.6-11.0 [facility] Comment on above: Result Comment: Canc elled via OM: Order cancelled - Patient discharged Performed By: #### L 500.2500, L100.0100 ####[facility] [address] [place], [address] CL Normal 98-108 [facility] Comment on above: Result Comment: Canc elled via OM: Order cancelled - Patient discharged Performed By: #### L 500.2500, L100.0100 ####[facility] [address] [place], [address] CO2 Normal 21.0-32.0 [facility] Comment on above: Result Comment: Canc elled via OM: Order cancelled - Patient discharged Performed By: #### L 500.2500, L100.0100 ####[facility] [address] [place], [address] CREAT,SERUM Normal 0.70-1.20 [facility] Comment on above: Result Comment: Canc elled via OM: Order cancelled - Patient discharged Performed By: #### L 500.2500, L100.0100 ####[facility] [address] [place], [address] eGFR Normal >60 [facility] Comment on above: Result Comment: Canc elled via OM: Order cancelled - Patient discharged Performed By: #### L 500.2500, L100.0100 ####[facility] [address] [place], [address] GAP Normal 5-15 [facility] Comment on above: Result Comment: Canc elled via OM: Order cancelled - Patient discharged Performed By: #### L 500.2500, L100.0100 ####[facility] [address] [place], [address] GLU Normal 70-99 [facility] Comment on above: Result Comment: Canc elled via OM: Order cancelled - Patient discharged Performed By: #### L 500.2500, L100.0100 ####[facility] [address] [place], [address] Potassium Normal 3.3-5.1 [facility] Comment on above: Result Comment: Canc elled via OM: Order cancelled - Patient discharged Performed By: #### L 500.2500, L100.0100 ####[facility] [address] [place], [address] Basic Metabolic Profile (BMP) Normal 133-145 [facility] Comment on above: Result Comment: Canc elled via OM: Order cancelled - Patient discharged Performed By: #### L 500.2500, L100.0100 ####[facility] [address] [place], [address] CBC W/Diff, Automatedon --2024 Absolute Neut Normal 2.0-7.7 [facility] Comment on above: Result Comment: Canc elled via OM: Order cancelled - Patient discharged Performed By: #### L 500.2500, L100.0100 ####[facility] [address] [place], [address] HCT Normal 37-47 [facility] Comment on above: Result Comment: Canc elled via OM: Order cancelled - Patient discharged Performed By: #### L 500.2500, L100.0100 ####[facility] [address] [place], [address] HGB Normal 12.0-15.0 [facility] Comment on above: Result Comment: Canc elled via OM: Order cancelled - Patient discharged Performed By: #### L 500.2500, L100.0100 ####[facility] [address] [place], [address] MCH Normal 27.0-32.0 [facility] Comment on above: Result Comment: Canc elled via OM: Order cancelled - Patient discharged Performed By: #### L 500.2500, L100.0100 ####[facility] [address] [place], [address] MCHC Normal 32-36 [facility] Comment on above: Result Comment: Canc elled via OM: Order cancelled - Patient discharged Performed By: #### L 500.2500, L100.0100 ####[facility] [address] [place], [address] MCV Normal 81-99 [facility] Comment on above: Result Comment: Canc elled via OM: Order cancelled - Patient discharged Performed By: #### L 500.2500, L100.0100 ####[facility] [address] [place], [address] NEUT% Normal 47-70 [facility] Comment on above: Result Comment: Canc elled via OM: Order cancelled - Patient discharged Performed By: #### L 500.2500, L100.0100 ####[facility] [address] [place], [address] PLT Normal 150-450 [facility] Comment on above: Result Comment: Canc elled via OM: Order cancelled - Patient discharged Performed By: #### L 500.2500, L100.0100 ####[facility] [address] [place], [address] RBC Normal 4.2-5.4 [facility] Comment on above: Result Comment: Canc elled via OM: Order cancelled - Patient discharged Performed By: #### L 500.2500, L100.0100 ####[facility] [address] [place], [address] RDW CV Normal 11.6-14.6 [facility] Comment on above: Result Comment: Canc elled via OM: Order cancelled - Patient discharged Performed By: #### L 500.2500, L100.0100 ####[facility] [address] [place], [address] RDW SD Normal 35.1-43.9 [facility] Comment on above: Result Comment: Canc elled via OM: Order cancelled - Patient discharged Performed By: #### L 500.2500, L100.0100 ####[facility] [address] [place], [address] WBC Normal 4.4-11.0 [facility] Comment on above: Result Comment: Canc elled via OM: Order cancelled - Patient discharged Performed By: #### L 500.2500, L100.0100 ####[facility] [address] [place], [address] Basic Metabolic Profile (BMP )on 12-14-2024 BUN Normal - [facility] Comment on above: Result Comment: Canc elled via OM: Order cancelled - Patient discharged Performed By: #### L 100.0100, L500.2500 ####[facility] [address] [place], [address] BUN/CRE Normal -20 [facility] Comment on above: Result Comment: Canc elled via OM: Order cancelled - Patient discharged Performed By: #### L 100.0100, L500.2500 ####[facility] [address] [place], [address] Calcium Normal 7.6-11.0 [facility] Comment on above: Result Comment: Canc elled via OM: Order cancelled - Patient discharged Performed By: #### L 100.0100, L500.2500 ####[facility] [address] [place], [address] CL Normal 98-108 [facility] Comment on above: Result Comment: Canc elled via OM: Order cancelled - Patient discharged Performed By: #### L 100.0100, L500.2500 ####[facility] [address] [place], [address] CO2 Normal 21.0-32.0 [facility] Comment on above: Result Comment: Canc elled via OM: Order cancelled - Patient discharged Performed By: #### L 100.0100, L500.2500 ####[facility] [address] [place], [address] CREAT,SERUM Normal 0.70-1.20 [facility] Comment on above: Result Comment: Canc elled via OM: Order cancelled - Patient discharged Performed By: #### L 100.0100, L500.2500 ####[facility] [address] [place], [address] eGFR Normal >60 [facility] Comment on above: Result Comment: Canc elled via OM: Order cancelled - Patient discharged Performed By: #### L 100.0100, L500.2500 ####[facility] [address] [place], [address] GAP Normal 5-15 [facility] Comment on above: Result Comment: Canc elled via OM: Order cancelled - Patient discharged Performed By: #### L 100.0100, L500.2500 ####[facility] [address] [place], [address] GLU Normal 70-99 [facility] Comment on above: Result Comment: Canc elled via OM: Order cancelled - Patient discharged Performed By: #### L 100.0100, L500.2500 ####[facility] [address] [place], [address] Potassium Normal 3.3-5.1 [facility] Comment on above: Result Comment: Canc elled via OM: Order cancelled - Patient discharged Performed By: #### L 100.0100, L500.2500 ####[facility] [address] [place], [address] Basic Metabolic Profile (BMP) Normal 133-145 [facility] Comment on above: Result Comment: Canc elled via OM: Order cancelled - Patient discharged Performed By: #### L 100.0100, L500.2500 ####[facility] [address] [place], [address] CBC W/Diff, Automatedon - Absolute Neut Normal 2.0-7.7 [facility] Comment on above: Result Comment: Canc elled via OM: Order cancelled - Patient discharged Performed By: #### L 100.0100, L500.2500 ####[facility] [address] [place], [address] HCT Normal 37-47 [facility] Comment on above: Result Comment: Canc elled via OM: Order cancelled - Patient discharged Performed By: #### L 100.0100, L500.2500 ####[facility] [address] [place], [address] HGB Normal 12.0-15.0 [facility] Comment on above: Result Comment: Canc elled via OM: Order cancelled - Patient discharged Performed By: #### L 100.0100, L500.2500 ####[facility] [address] [place], [address] MCH Normal 27.0-32.0 [facility] Comment on above: Result Comment: Canc elled via OM: Order cancelled - Patient discharged Performed By: #### L 100.0100, L500.2500 ####[facility] [address] [place], [address] MCHC Normal 32-36 [facility] Comment on above: Result Comment: Canc elled via OM: Order cancelled - Patient discharged Performed By: #### L 100.0100, L500.2500 ####[facility] [address] [place], [address] MCV Normal 81-99 [facility] Comment on above: Result Comment: Canc elled via OM: Order cancelled - Patient discharged Performed By: #### L 100.0100, L500.2500 ####[facility] [address] [place], [address] NEUT% Normal 47-70 [facility] Comment on above: Result Comment: Canc elled via OM: Order cancelled - Patient discharged Performed By: #### L 100.0100, L500.2500 ####[facility] [address] [place], [address] PLT Normal 150-450 [facility] Comment on above: Result Comment: Canc elled via OM: Order cancelled - Patient discharged Performed By: #### L 100.0100, L500.2500 ####[facility] [address] [place], [address] RBC Normal 4.2-5.4 [facility] Comment on above: Result Comment: Canc elled via OM: Order cancelled - Patient discharged Performed By: #### L 100.0100, L500.2500 ####[facility] [address] [place], [address] RDW CV Normal 11.6-14.6 [facility] Comment on above: Result Comment: Canc elled via OM: Order cancelled - Patient discharged Performed By: #### L 100.0100, L500.2500 ####[facility] [address] [place], [address] RDW SD Normal 35.1-43.9 [facility] Comment on above: Result Comment: Canc elled via OM: Order cancelled - Patient discharged Performed By: #### L 100.0100, L500.2500 ####[facility] [address] [place], [address] WBC Normal 4.4-11.0 [facility] Comment on above: Result Comment: Canc elled via OM: Order cancelled - Patient discharged Performed By: #### L 100.0100, L500.2500 ####[facility] [address] [place], [address] Basic Metabolic Profile (BMP )on 12-13-2024 BUN Normal 4-19 [facility] Comment on above: Result Comment: Canc elled via OM: Order cancelled - Patient discharged Performed By: #### L 100.0100, L500.2500 ####[facility] [address] [place], [address] BUN/CRE Normal 10-20 [facility] Comment on above: Result Comment: Canc elled via OM: Order cancelled - Patient discharged Performed By: #### L 100.0100, L500.2500 ####[facility] [address] [place], [address] Calcium Normal 7.6-11.0 [facility] Comment on above: Result Comment: Canc elled via OM: Order cancelled - Patient discharged Performed By: #### L 100.0100, L500.2500 ####[facility] [address] [place], [address] CL Normal 98-108 [facility] Comment on above: Result Comment: Canc elled via OM: Order cancelled - Patient discharged Performed By: #### L 100.0100, L500.2500 ####[facility] [address] [place], [address] CO2 Normal 21.0-32.0 [facility] Comment on above: Result Comment: Canc elled via OM: Order cancelled - Patient discharged Performed By: #### L 100.0100, L500.2500 ####[facility] [address] [place], [address] CREAT,SERUM Normal 0.70-1.20 [facility] Comment on above: Result Comment: Canc elled via OM: Order cancelled - Patient discharged Performed By: #### L 100.0100, L500.2500 ####[facility] [address] [place], [address] eGFR Normal >60 [facility] Comment on above: Result Comment: Canc elled via OM: Order cancelled - Patient discharged Performed By: #### L 100.0100, L500.2500 ####[facility] [address] [place], [address] GAP Normal 5-15 [facility] Comment on above: Result Comment: Canc elled via OM: Order cancelled - Patient discharged Performed By: #### L 100.0100, L500.2500 ####[facility] [address] [place], [address] GLU Normal 70-99 [facility] Comment on above: Result Comment: Canc elled via OM: Order cancelled - Patient discharged Performed By: #### L 100.0100, L500.2500 ####[facility] [address] [place], [address] Potassium Normal 3.3-5.1 Access [facility] Comment on above: Result Comment: Canc elled via OM: Order cancelled - Patient discharged Performed By: #### L 100.0100, L500.2500 ####[facility] [address] [place], [address] Basic Metabolic Profile (BMP) Normal 133-145 [facility] Comment on above: Result Comment: Canc elled via OM: Order cancelled - Patient discharged Performed By: #### L 100.0100, L500.2500 ####[facility] [address] [place], [address] CBC W/Diff, Automatedon 03-1 Absolute Neut Normal 2.0-7.7 [facility] Comment on above: Result Comment: Canc elled via OM: Order cancelled - Patient discharged Performed By: #### L 100.0100, L500.2500 ####[facility] [address] [place], [address] HCT Normal 37-47 [facility] Comment on above: Result Comment: Canc elled via OM: Order cancelled - Patient discharged Performed By: #### L 100.0100, L500.2500 ####[facility] [address] [place], [address] HGB Normal 12.0-15.0 [facility] Comment on above: Result Comment: Canc elled via OM: Order cancelled - Patient discharged Performed By: #### L 100.0100, L500.2500 ####[facility] [address] [place], [address] MCH Normal 27.0-32.0 [facility] Comment on above: Result Comment: Canc elled via OM: Order cancelled - Patient discharged Performed By: #### L 100.0100, L500.2500 ####[facility] [address] [place], [address] MCHC Normal 32-36 [facility] Comment on above: Result Comment: Canc elled via OM: Order cancelled - Patient discharged Performed By: #### L 100.0100, L500.2500 ####[facility] [address] [place], [address] MCV Normal 81-99 [facility] Comment on above: Result Comment: Canc elled via OM: Order cancelled - Patient discharged Performed By: #### L 100.0100, L500.2500 ####[facility] [address] [place], [address] NEUT% Normal 47-70 [facility] Comment on above: Result Comment: Canc elled via OM: Order cancelled - Patient discharged Performed By: #### L 100.0100, L500.2500 ####[facility] [address] [place], [address] PLT Normal 150-450 [facility] Comment on above: Result Comment: Canc elled via OM: Order cancelled - Patient discharged Performed By: #### L 100.0100, L500.2500 ####[facility] [address] [place], [address] RBC Normal 4.2-5.4 [facility] Comment on above: Result Comment: Canc elled via OM: Order cancelled - Patient discharged Performed By: #### L 100.0100, L500.2500 ####[facility] [address] [place], [address] RDW CV Normal 11.6-14.6 [facility] Comment on above: Result Comment: Canc elled via OM: Order cancelled - Patient discharged Performed By: #### L 100.0100, L500.2500 ####[facility] [address] [place], [address] RDW SD Normal 35.1-43.9 [facility] Comment on above: Result Comment: Canc elled via OM: Order cancelled - Patient discharged Performed By: #### L 100.0100, L500.2500 ####[facility] [address] [place], [address] WBC Normal 4.4-11.0 [facility] Comment on above: Result Comment: Canc elled via OM: Order cancelled - Patient discharged Performed By: #### L 100.0100, L500.2500 ####[facility] [address] [place], [address] Respiratory Cultureon 2024 RESPC Mixed normal respiratory benjie. No Streptococcus pneumoniae, beta-hemolytic Streptococcus or Staphylococcus aureus isolated. Normal [facility] Comment on above: Performed By: #### M 100.2400, M100.2000 ####[facility] [address] [place], [address] Absolute lymphocyte countOrd ered By: Anastacia Bonilla on 12-12-2024 Lymphocytes Auto (Unsp spec) [#/Vol] 4.36 10*3/uL 0.83-4.51 [facility] Absolute neutrophil countOrd ered By: Anastacia Bonilla on 12-12-2024 Neutrophils (Bld) [#/Vol] 17.2 10*3/uL High 2.0-7.7 [facility] Absolute neutrophil count 17.2 X10^3/uL High 2.0-7.7 [facility] Anion gap [Moles/Vol]Ordered By: Anastacia Bonilla on 12-12-2024 Anion gap in Serum or Plasma 8 02-09 [facility] Anion gap in Serum or Plasma Ordered By: Anastacia Bonilla on 12-12-2024 Anion gap [Moles/Vol] 8 mmol/L 02-09 [facility] BUN/creatinine ratioOrdered By: Anastacia Bonilla on 12-12-2024 Urea nitrogen/Creatinine [Mass ratio] 32.0 mg/mg High 07-17 [facility] BUN/creatinine ratio 32.0 RATIO High 07-17 [facility] Band form neutrophils/100 WB C (Bld)Ordered By: Anastacia Bonilla on 12-12-2024 Blood band neutrophil count as percentage of total leukocytes 2 % 0- [facility] Basic Metabolic Profile (BMP )on 12-12-2024 BUN/CRE 32.0 RATIO High 07-17 [facility] Comment on above: Performed By: #### L 500.2500, L100.0100 ####[facility] [address] [place], [address] Calcium [Mass/Vol] 8.9 mg/dL Normal 7.6-11.0 [facility] Comment on above: Performed By: #### L 500.2500, L100.0100 ####[facility] [address] [place], [address] Chloride [Moles/Vol] 95 mmol/L Low 98-108 [facility] Comment on above: Performed By: #### L 500.2500, L100.0100 ####[facility] [address] [place], [address] CO2 [Moles/Vol] 34.4 mmol/L High 21.0-32.0 [facility] Comment on above: Performed By: #### L 500.2500, L100.0100 ####[facility] [address] [place], [address] Creatinine [Mass/Vol] 0.77 mg/dL Normal 0.70-1.20 [facility] Comment on above: Performed By: #### L 500.2500, L100.0100 ####[facility] [address] [place], [address] ECRCL 63.47 ml/min Normal 50-250 [facility] Comment on above: Performed By: #### L 500.2500, L100.0100 ####[facility] [address] [place], [address] GAP 8 Normal 5-15 [facility] Comment on above: Performed By: #### L 500.2500, L100.0100 ####[facility] [address] [place], [address] GFR/1.73 sq M.predicted among non-blacks MDRD (S/P/Bld) [Vol rate/Area] 87 mL/min/{1.73_m2} Normal >60 [facility] Comment on above: Result Comment: mL/m in/1.73m2 CKD-EPI Creatinine Equation (2020) Performed By: #### L 500.2500, L100.0100 ####[facility] [address] [place], [address] Glucose [Mass/Vol] 80 mg/dL Normal 70-99 [facility] Comment on above: Performed By: #### L 500.2500, L100.0100 ####[facility] [address] [place], [address] Potassium [Moles/Vol] 4.1 mmol/L Normal 3.3-5.1 [facility] Comment on above: Performed By: #### L 500.2500, L100.0100 ####[facility] [address] [place], [address] Sodium [Moles/Vol] 137 mmol/L Normal 133-145 [facility] Comment on above: Performed By: #### L 500.2500, L100.0100 ####[facility] [address] [place], [place], [address] Urea nitrogen [Mass/Vol] 25 mg/dL High 4-19 [facility] Comment on above: Performed By: #### L 500.2500, L100.0100 ####[facility] [address] [place], [place], [address] Blood band neutrophil count as percentage of total leukocytesOrdered By: Anastacia Bonilla on 12-12-2024 Band form neutrophils/100 WBC (Bld) 2 % 0-5 [facility] Blood lymphocytes/100 leukoc ytesOrdered By: Anastacia Bonilla on 12-12-2024 Lymphocytes/100 WBC (Bld) 17 % Low 19-41 [facility] Blood manual differential co mment interpretation (narrative result)Ordered By: Anastacia Bonilla on 12-12-2024 Manual differential comment Geovany (Bld) [Interp] SCANNED [facility] Blood metamyelocytes/100 scott kocytesOrdered By: Anastacia Bonilla on 12-12-2024 Metamyelocytes/100 WBC (Bld) 1 % 0-1 [facility] Blood monocytes/100 leukocyt esOrdered By: Anastacia Bonilla on 12-12-2024 Monocytes/100 WBC (Bld) 5 % 0-10 [facility] Blood segmented neutrophils/ 100 leukocytesOrdered By: Anastacia Bonilla on 12-12-2024 Segmented neutrophils/100 WBC (Bld) 65 % 47-70 [facility] Calcium [Mass/Vol]Ordered By : Anastacia Bonilla on 12-12-2024 Serum or plasma calcium measurement (mass/volume) 8.9 mg/dL 7.6-11.0 [facility] Carbon dioxide, total [Moles /volume] in Central venous bloodOrdered By: Anastacia Bonilla on 12-12-2024 CO2 [Moles/Vol] 34.4 mmol/L High 21.0-32.0 [facility] Carbon dioxide, total [Moles/volume] in Central venous blood 34.4 mmol/L High 21.0-32.0 [facility] Cells counted Molgen (Bld/Ti ss) [#]Ordered By: Anastacia Bonilla on 12-12-2024 Differential Total Cells Counted 100 MANUAL DIFF [facility] Total cell count 100 MANUAL DIFF [facility] Chloride assayOrdered By: Emily Bonilla on 12-12-2024 Chloride [Moles/Vol] 95 mmol/L Low 98-108 [facility] Chloride assay 95 mmol/L Low 98-108 [facility] Creatinine [Mass/Vol]Ordered By: Anastacia Bonilla on 12-12-2024 Serum creatinine measurement (mass/volume) 0.77 mg/dL 0.70-1.20 [facility] Discharge Instructionon 11-26 Discharge Instruction Normal [facility] EGD Reporton 12-12-2024 EGD Report Normal [facility] Erythrocyte distribution wid th (RBC) [Ratio]Ordered By: Anastacia Bonilla on 12-12-2024 Erythrocyte distribution width ratio 14.6 % 11.6-14.6 [facility] Erythrocyte distribution wid th ratioOrdered By: Anastacia Bonilla on 12-12-2024 Erythrocyte distribution width (RBC) [Ratio] 14.6 % 11.6-14.6 [facility] Erythrocyte distribution wid th standard deviationOrdered By: Anastacia Bonilla on 12-12-2024 Erythrocyte distribution width (RBC) [Entitic vol] 46.5 fL High 35.1-43.9 [facility] Erythrocyte distribution width (RBC) [Ratio] 46.5 fl High 35.1-43.9 [facility] Erythrocyte distribution width standard deviation 46.5 fl High 35.1-43.9 [facility] Estimation of creatinine frankie aranceOrdered By: Anastacia Bonilla on 12-12-2024 Estimated Creatinine Clearance Calc 63.47 ml/min 50-250 [facility] Estimation of creatinine clearance 63.47 ml/min 50-250 [facility] GFR/1.73 sq M.predicted gregory g non-blacks MDRD (S/P/Bld) [Vol rate/Area]Ordered By: Anastacia Bonilla on 12-12-2024 Estimated GFR (MDRD) Non-Af Amer 87 >60 [facility] Comment on above: mL/min/1.73m2 CKD-EP I Creatinine Equation (2020) Glomerular filtration rate (GFR) estimation/1.73 sq m using serum, plasma, or whole b 87 >60 [facility] Glomerular filtration rate ( GFR) estimation/1.73 sq m using serum, plasma, or whole bOrdered By: Anastacia Bonilla on 12-12-2024 GFR/1.73 sq M.predicted among non-blacks MDRD (S/P/Bld) [Vol rate/Area] 87 mL/min/{1.73_m2} >60 [facility] Glucose [Mass/Vol]Ordered By : Anastacia Bonilla on 12-12-2024 Serum glucose measurement (mass/volume) 80 mg/dL 70-99 [facility] Hematocrit Auto (Bld) [Volum e fraction]Ordered By: Anastacia Bonilla on 12-12-2024 Hematocrit (Bld) [Volume fraction] 44.4 % 37-47 [facility] Automated blood hematocrit (percentage) 44.4 % 37-47 [facility] Hemoglobin measurementOrdere d By: Anastacia Bonilla on 12-12-2024 Hemoglobin (Bld) [Mass/Vol] 13.7 g/dL 12.0-15.0 [facility] Hemoglobin measurement 13.7 g/dL 12.0-15.0 [facility] Lymphocytes Auto (Unsp spec) [#/Vol]Ordered By: Anastacia Bonilla on 12-12-2024 Lymphocytes (Bld) [#/Vol] 4.36 10*3/uL 0.83-4.51 [facility] Absolute lymphocyte count 4.36 X10^3/uL 0.83-4.51 [facility] Lymphocytes/100 WBC (Bld)Ord ered By: Anastacia Bonilla on 12-12-2024 Blood lymphocytes/100 leukocytes 17 % Low 19-41 [facility] MCV (RBC) [Entitic vol]Order ed By: Anastacia Bonilla on 12-12-2024 MCV (mean corpuscular volume) determination 86.2 fL 81-99 [facility] MCV (mean corpuscular volume ) determinationOrdered By: Anastacia Bonilla on 12-12-2024 MCV (RBC) [Entitic vol] 86.2 fL 81-99 [facility] MR/POSTOP.ANEon 12-12-2024 MR/POSTOP.ANE Normal [facility] MR/KNCMULOF0uy 12-12-2024 MR/POSTOPAN2 Normal [facility] Manual differential comment Geovany (Bld) [Interp]Ordered By: Anastacia Bonilla on 12-12-2024 Differential Comment SCANNED [facility] Comment on above: LYMPHOCYTOSIS PRESEN TMONOCYTOSIS PRESENT Blood manual differential comment interpretation (narrative result) SCANNED [facility] Mean corpuscular hemoglobin (MCH) determinationOrdered By: Anastacia Bonilla on 12-12-2024 MCH (RBC) [Entitic mass] 26.6 pg Low 27.0-32.0 [facility] Mean corpuscular hemoglobin (MCH) determination 26.6 pg Low 27.0-32.0 [facility] Mean corpuscular hemoglobin concentration (MCHC) determinationOrdered By: Anastacia Bonilla on 12-12-2024 MCHC (RBC) [Mass/Vol] 30.9 g/dL Low 32-36 [facility] Mean corpuscular hemoglobin concentration (MCHC) determination 30.9 g/dL Low 32-36 [facility] Mean platelet volume determi nationOrdered By: Anastacia Bonilla on 12-12-2024 Platelet mean volume (Bld) [Entitic vol] 10.1 fL 6.2-12.0 [facility] Mean platelet volume determination 10.1 fl 6.2-12.0 [facility] Metamyelocytes/100 WBC (Bld) Ordered By: Anastacia Bonilla on 12-12-2024 Blood metamyelocytes/100 leukocytes 1 % 0-1 [facility] Monocytes/100 WBC (Bld)Order ed By: Anastacia Bonilla on 12-12-2024 Blood monocytes/100 leukocytes 5 % 0-10 [facility] Myelocyte %Ordered By: Anastacia Bonilla on 12-12-2024 Myelocytes/100 WBC (Bld) 7 % High 0-0 [facility] Myelocyte % 7 % High 0-0 [facility] Neutrophil percentageOrdered By: Anastacia Bonilla on 12-12-2024 Neutrophils (%) (Auto) Not Reportable [facility] Neutrophil percentage Not Reportable [facility] Pathologist review Geovany (Unsp spec) [Interp]Ordered By: Anastacia Bonilla on 12-12-2024 Differential Pathologist's Review January [facility] Review by pathologist January [facility] Review by pathologist N/A [facility] Platelet countOrdered By: Emily Bonilla on 12-12-2024 Platelets (Bld) [#/Vol] 345 10*3/uL 150-450 [facility] Platelet count 345 K/mm3 150-450 [facility] Potassium (Unsp spec) [Mass/ Vol]Ordered By: Anastacia Bonilla on 12-12-2024 Potassium [Moles/Vol] 4.1 mmol/L 3.3-5.1 [facility] Potassium measurement (mass/volume) 4.1 mmol/L 3.3-5.1 [facility] Potassium measurement (mass/ volume)Ordered By: Anastacia Bonilla on 12-12-2024 Potassium (Unsp spec) [Mass/Vol] 4.1 mmol/L 3.3-5.1 [facility] RBC Auto (Bld) [#/Vol]Ordere d By: Anastacia Bonilla on 12-12-2024 RBC (Bld) [#/Vol] 5.15 10*6/uL 4.2-5.4 [facility] Automated blood erythrocyte count 5.15 M/mm3 4.2-5.4 [facility] Review by pathologistOrdered By: Anastacia Bonilla on 12-12-2024 Pathologist review Geovany (Unsp spec) [Interp] N/A [facility] Segmented neutrophils/100 WB C (Bld)Ordered By: Anastacia Bonilla on 12-12-2024 Neutrophils/100 WBC (Bld) 65 % 47-70 [facility] Blood segmented neutrophils/100 leukocytes 65 % 47-70 [facility] Serum creatinine measurement (mass/volume)Ordered By: Anastacia Bonilla on 12-12-2024 Creatinine [Mass/Vol] 0.77 mg/dL 0.70-1.20 [facility] Serum glucose measurement (m ass/volume)Ordered By: Anastacia Bonilla on 12-12-2024 Glucose [Mass/Vol] 80 mg/dL 70-99 [facility] Serum or plasma calcium esthela urement (mass/volume)Ordered By: Anastacia Bonilla on 12-12-2024 Calcium [Mass/Vol] 8.9 mg/dL 7.6-11.0 [facility] Serum or plasma urea nitroge n measurement (mass/volume)Ordered By: Anastacia Chad on 12-12-2024 Urea nitrogen [Mass/Vol] 25 mg/dL High 01-14 [facility] Sodium levelOrdered By: Anastaciagerri Bonilla on 12-12-2024 Sodium [Moles/Vol] 137 mmol/L 133-145 [facility] Sodium level 137 mmol/L 133-145 [facility] Total cell countOrdered By: Anastaciagerri Bonilla on 12-12-2024 Cells counted Molgen (Bld/Tiss) [#] 100 MANUAL DIFF [facility] Urea nitrogen [Mass/Vol]Orde red By: Anastaciagerri Bonilla on 12-12-2024 Serum or plasma urea nitrogen measurement (mass/volume) 25 mg/dL High 01-14 [facility] White blood cell (WBC) count Ordered By: Anastacia Bonilla on 12-12-2024 WBC (Bld) [#/Vol] 25.7 10*3/uL High 4.4-11.0 [facility] White blood cell (WBC) count 25.7 K/mm3 High 4.4-11.0 [facility] Basic Metabolic Profile (BMP )on 12-11-2024 BUN/CRE 36.7 RATIO High 10-20 [facility] Comment on above: Performed By: #### L 100.0100, L500.2500 ####[facility] [address] [place], [address] Calcium [Mass/Vol] 9.0 mg/dL Normal 7.6-11.0 [facility] Comment on above: Performed By: #### L 100.0100, L500.2500 ####[facility] [address] [place], [address] Chloride [Moles/Vol] 96 mmol/L Low 98-108 [facility] Comment on above: Performed By: #### L 100.0100, L500.2500 ####[facility] [address] [place], [address] CO2 [Moles/Vol] 27.6 mmol/L Normal 21.0-32.0 [facility] Comment on above: Performed By: #### L 100.0100, L500.2500 ####[facility] [address] [place], [address] Creatinine [Mass/Vol] 0.79 mg/dL Normal 0.70-1.20 [facility] Comment on above: Performed By: #### L 100.0100, L500.2500 ####[facility] [address] [place], [address] ECRCL 61.86 ml/min Normal 50-250 [facility] Comment on above: Performed By: #### L 100.0100, L500.2500 ####[facility] [address] [place], [address] GAP 13 Normal 5-15 [facility] Comment on above: Performed By: #### L 100.0100, L500.2500 ####[facility] [address] [place], [address] GFR/1.73 sq M.predicted among non-blacks MDRD (S/P/Bld) [Vol rate/Area] 85 mL/min/{1.73_m2} Normal >60 [facility] Comment on above: Result Comment: mL/m in/1.73m2 CKD-EPI Creatinine Equation (2020) Performed By: #### L 100.0100, L500.2500 ####[facility] [address] [place], [address] Glucose [Mass/Vol] 79 mg/dL Normal 70-99 [facility] Comment on above: Performed By: #### L 100.0100, L500.2500 ####[facility] [address] [place], [address] Potassium [Moles/Vol] 4.4 mmol/L Normal 3.3-5.1 [facility] Comment on above: Performed By: #### L 100.0100, L500.2500 ####[facility] [address] [place], [address] Sodium [Moles/Vol] 137 mmol/L Normal 133-145 [facility] Comment on above: Performed By: #### L 100.0100, L500.2500 ####[facility] [address] [place], [address] Urea nitrogen [Mass/Vol] 29 mg/dL High 4-19 [facility] Comment on above: Performed By: #### L 100.0100, L500.2500 ####[facility] [address] [place], [address] Gram Stainon 12-11-2024 GS Acceptable Specimen? Yes (<25 Epithelial cells per/lpf) Gram Stain 1+ Gram positive cocci 1+ Epithelial cells No White Blood Cells Normal [facility] Comment on above: Performed By: #### M 100.2400, M100.2000 ####[facility] [address] [place], [address] Laboratory - Hematology and Cell countsOrdered By: Anastacia Bonilla on 12-11-2024 Anisocytosis Ql (Bld) 1+ [facility] Microcytosis evaluation pane lOrdered By: Anastacia Bonilla on 12-11-2024 Microcytosis 1+ [facility] Microcytosis evaluation panel 1+ [facility] Ovalocyte detectionOrdered B y: Anastacia Bonilla on 12-11-2024 Ovalocytes LM Ql (Bld) 1+ [facility] Ovalocytes LM Ql (Bld)Ordere d By: Anastacia Bonilla on 12-11-2024 Ovalocytes 1+ [facility] Platelet estimateOrdered By: Anastacia Bonilla on 12-11-2024 Platelets LM Ql (Bld) ADEQUATE ADEQ [facility] Platelets LM Ql (Bld)Ordered By: Anastacia Bonilla on 12-11-2024 Platelet Estimate ADEQUATE ADEQ [facility] Platelet estimate ADEQUATE [facility] MARYVALEQ [facility] Basic Metabolic Profile (BMP )on 12-10-2024 BUN/CRE 41.3 RATIO High 10-20 [facility] Comment on above: Performed By: #### L 100.0100, L500.2500 ####[facility] [address] [place], [address] Calcium [Mass/Vol] 9.5 mg/dL Normal 7.6-11.0 [facility] Comment on above: Performed By: #### L 100.0100, L500.2500 ####[facility] [address] [place], [address] Chloride [Moles/Vol] 97 mmol/L Low 98-108 [facility] Comment on above: Performed By: #### L 100.0100, L500.2500 ####[facility] [address] [place], [address] CO2 [Moles/Vol] 28.4 mmol/L Normal 21.0-32.0 [facility] Comment on above: Performed By: #### L 100.0100, L500.2500 ####[facility] [address] [place], [address] Creatinine [Mass/Vol] 0.82 mg/dL Normal 0.70-1.20 [facility] Comment on above: Performed By: #### L 100.0100, L500.2500 ####[facility] [address] [place], [address] ECRCL 59.60 ml/min Normal 50-250 [facility] Comment on above: Performed By: #### L 100.0100, L500.2500 ####[facility] [address] [place], [address] GAP 11 Normal 5-15 [facility] Comment on above: Performed By: #### L 100.0100, L500.2500 ####[facility] [address] [place], [address] GFR/1.73 sq M.predicted among non-blacks MDRD (S/P/Bld) [Vol rate/Area] 81 mL/min/{1.73_m2} Normal >60 [facility] Comment on above: Result Comment: mL/m in/1.73m2 CKD-EPI Creatinine Equation (2020) Performed By: #### L 100.0100, L500.2500 ####[facility] [address] [place], [address] Glucose [Mass/Vol] 157 mg/dL High 70-99 [facility] Comment on above: Performed By: #### L 100.0100, L500.2500 ####[facility] [address] [place], [address] Potassium [Moles/Vol] 5.2 mmol/L High 3.3-5.1 [facility] Comment on above: Performed By: #### L 100.0100, L500.2500 ####[facility] [address] [place], [address] Sodium [Moles/Vol] 136 mmol/L Normal 133-145 [facility] Comment on above: Performed By: #### L 100.0100, L500.2500 ####[facility] [address] [place], [address] Urea nitrogen [Mass/Vol] 34 mg/dL High 4-19 [facility] Comment on above: Performed By: #### L 100.0100, L500.2500 ####[facility] [address] [place], [address] Blood eosinophils/100 leukoc ytesOrdered By: Anastacia Bonilla on 12-10-2024 Eosinophils/100 WBC (Bld) 1 % 0-5 [facility] Eosinophils/100 WBC (Bld)Ord ered By: Anastacia Bonilla on 12-10-2024 Blood eosinophils/100 leukocytes 1 % 0-5 [facility] Gram stainOrdered By: Ever Aguayo on 12-10-2024 Microscopic observation Gram stain Nom (Unsp spec) [facility] Microbial respiratory cultur eOrdered By: Aleta Aguayo on 12-10-2024 Microorganism identified Cx Nom (Unsp spec) or Staphylococcus aureus isolated. [facility] Microorganism identified Cx Nom (Unsp spec)Ordered By: Aleta Aguayo on 12-10-2024 Microbial respiratory culture or Staphylococcus aureus isolated. [facility] Platelet morphologyOrdered B y: Anastacia Bonilla on 12-10-2024 Platelet morphology finding Nom (Bld) G [facility] Platelet morphology finding Nom (Bld)Ordered By: Anastacia Bonilla on 12-10-2024 Platelet Morphology Comment G [facility] Platelet morphology G [facility] Basic Metabolic Profile (BMP )on 12-09-2024 BUN/CRE 40.8 RATIO High 10-20 [facility] Comment on above: Performed By: #### L 500.2500 ####[facility] [address] [place], [address] Calcium [Mass/Vol] 9.8 mg/dL Normal 7.6-11.0 [facility] Comment on above: Performed By: #### L 500.2500 ####[facility] [address] [place], [address] Chloride [Moles/Vol] 96 mmol/L Low 98-108 [facility] Comment on above: Performed By: #### L 500.2500 ####[facility] [address] [place], [address] CO2 [Moles/Vol] 27.3 mmol/L Normal 21.0-32.0 [facility] Comment on above: Performed By: #### L 500.2500 ####[facility] [address] [place], [address] Creatinine [Mass/Vol] 0.85 mg/dL Normal 0.70-1.20 [facility] Comment on above: Performed By: #### L 500.2500 ####[facility] [address] [place], [address] ECRCL 57.49 ml/min Normal 50-250 [facility] Comment on above: Performed By: #### L 500.2500 ####[facility] [address] [place], [address] GAP 13 Normal 5-15 [facility] Comment on above: Performed By: #### L 500.2500 ####[facility] [address] [place], [address] GFR/1.73 sq M.predicted among non-blacks MDRD (S/P/Bld) [Vol rate/Area] 78 mL/min/{1.73_m2} Normal >60 [facility] Comment on above: Result Comment: mL/m in/1.73m2 CKD-EPI Creatinine Equation (2020) Performed By: #### L 500.2500 ####[facility] [address] [place], [address] Glucose [Mass/Vol] 176 mg/dL High 70-99 [facility] Comment on above: Performed By: #### L 500.2500 ####[facility] [address] [place], [address] Potassium [Moles/Vol] 5.0 mmol/L Normal 3.3-5.1 [facility] Comment on above: Performed By: #### L 500.2500 ####[facility] [address] [place], [address] Sodium [Moles/Vol] 135 mmol/L Normal 133-145 [facility] Comment on above: Performed By: #### L 500.2500 ####[facility] [address] [place], [address] Urea nitrogen [Mass/Vol] 35 mg/dL High 4-19 [facility] Comment on above: Performed By: #### L 500.2500 ####[facility] [address] [place], [address] Erythrocyte morphology asses smentOrdered By: Gonzalo Sebastian on 12-09-2024 RBC morphology finding Nom (Bld) NORM C+C NORMAL NORM C&C [facility] RBC morphology finding Nom ( Bld)Ordered By: Gonzalo Sebastian on 12-09-2024 Red Blood Cell Morphology NORM C+C NORMAL NORM C&C [facility] Erythrocyte morphology assessment NORM C+C NORMAL NORM C&C [facility] CBC W/Diff, Automatedon 11-26 Absolute Neut Normal 2.0-7.7 [facility] Comment on above: Result Comment: Canc elled via OM: Order edited - Discontinuing original order Performed By: #### L 100.0100 ####[facility] [address] [place], [address] HCT Normal 37-47 [facility] Comment on above: Result Comment: Canc elled via OM: Order edited - Discontinuing original order Performed By: #### L 100.0100 ####[facility] [address] [place], [address] HGB Normal 12.0-15.0 [facility] Comment on above: Result Comment: Canc elled via OM: Order edited - Discontinuing original order Performed By: #### L 100.0100 ####[facility] [address] [place], [address] MCH Normal 27.0-32.0 [facility] Comment on above: Result Comment: Canc elled via OM: Order edited - Discontinuing original order Performed By: #### L 100.0100 ####[facility] [address] [place], [address] MCHC Normal 32-36 [facility] Comment on above: Result Comment: Canc elled via OM: Order edited - Discontinuing original order Performed By: #### L 100.0100 ####[facility] [address] [place], [address] MCV Normal 81-99 [facility] Comment on above: Result Comment: Canc elled via OM: Order edited - Discontinuing original order Performed By: #### L 100.0100 ####[facility] [address] [place], [address] NEUT% Normal 47-70 [facility] Comment on above: Result Comment: Canc elled via OM: Order edited - Discontinuing original order Performed By: #### L 100.0100 ####[facility] [address] [place], [address] PLT Normal 150-450 [facility] Comment on above: Result Comment: Canc elled via OM: Order edited - Discontinuing original order Performed By: #### L 100.0100 ####[facility] [address] [place], [address] RBC Normal 4.2-5.4 [facility] Comment on above: Result Comment: Canc elled via OM: Order edited - Discontinuing original order Performed By: #### L 100.0100 ####[facility] [address] [place], [address] RDW CV Normal 11.6-14.6 [facility] Comment on above: Result Comment: Canc elled via OM: Order edited - Discontinuing original order Performed By: #### L 100.0100 ####[facility] [address] [place], [address] RDW SD Normal 35.1-43.9 [facility] Comment on above: Result Comment: Canc elled via OM: Order edited - Discontinuing original order Performed By: #### L 100.0100 ####[facility] [address] [place], [address] WBC Normal 4.4-11.0 [facility] Comment on above: Result Comment: Canc elled via OM: Order edited - Discontinuing original order Performed By: #### L 100.0100 ####[facility] [address] [place], [address] Modified Barium Swallow Stud yon 12-08-2024 Modified Barium Swallow Study Normal [facility] Influenza virus A and B and SARS-CoV-2 (COVID-19) and Respiratory syncytial virus RNAOrdered By: Gonzalo Sebastian on 12-07-2024 SARS-CoV-2 (COVID-19) RNA KANDY+probe Ql (Unsp spec) [facility] L503.7505on 12-07-2024 Natriuretic peptide B (Bld) [Mass/Vol] 3318 pg/mL High <=900 [facility] Comment on above: Result Comment: Hear t Failure Unlikely: < 300 pg/mLHeart Failure Likely< 50 Years: > 450 pg/mL50-75 Years: > 900 pg/mL>75 Years: > 1800 pg/mL Performed By: #### L 503.7505 ####[facility] [address] [place], [address] Laboratory - Chemistry and C hemistry - challengeOrdered By: Gonzalo Sebastian on 12-07-2024 Natriuretic peptide B (Bld) [Mass/Vol] 3318 pg/mL High <900 [facility] Comment on above: Heart Failure Unlike ly: < 300 pg/mLHeart Failure Likely< 50 Years: > 450 pg/mL50-75 Years: > 900 pg/mL>75 Years: > 1800 pg/mL M100.678on 12-07-2024 M100.678 Pending SARS-CoV-2 (COVID 19) Negative INFLUENZA A Negative INFLUENZA B Negative RSV PCR Negative Normal [facility] Comment on above: Performed By: #### M 100.678 ####[facility] [address] [place], [address] No Panel InformationOrdered By: Gonzalo Sebastian on 12-07-2024 3318 pg/mL High <900 [facility] Absolute neutrophil countOrd ered By: Gonzalo Sebastian on 12-06-2024 Neutrophils (Bld) [#/Vol] 23.2 10*3/uL High 2.0-7.7 [facility] Anion gap in Serum or Plasma Ordered By: Gonzalo Sebastian on 12-06-2024 Anion gap [Moles/Vol] 13 mmol/L 5-15 [facility] Automated lymphocyte count a s percentage of total leukocytesOrdered By: Gonzalo Sebastian on 12-06-2024 Lymphocytes/100 WBC Auto (Unsp spec) 4.5 % Low 19-41 [facility] BUN/creatinine ratioOrdered By: Gonzalo Sebastian on 12-06-2024 Urea nitrogen/Creatinine [Mass ratio] 27.8 mg/mg High 10-20 [facility] Basic Metabolic Profile (BMP )on 12-06-2024 BUN/CRE 27.8 RATIO High 10-20 [facility] Comment on above: Performed By: #### L 500.2500, L503.7505, L509.7001, L100.0100 ####[facility] [address] [place], [address] Calcium [Mass/Vol] 9.3 mg/dL Normal 7.6-11.0 [facility] Comment on above: Performed By: #### L 500.2500, L503.7505, L509.7001, L100.0100 ####[facility] [address] [place], [address] Chloride [Moles/Vol] 98 mmol/L Normal 98-108 [facility] Comment on above: Performed By: #### L 500.2500, L503.7505, L509.7001, L100.0100 ####[facility] [address] [place], [address] CO2 [Moles/Vol] 23.2 mmol/L Normal 21.0-32.0 [facility] Comment on above: Performed By: #### L 500.2500, L503.7505, L509.7001, L100.0100 ####[facility] [address] [place], [address] Creatinine [Mass/Vol] 1.57 mg/dL High 0.70-1.20 [facility] Comment on above: Performed By: #### L 500.2500, L503.7505, L509.7001, L100.0100 ####[facility] [address] [place], [address] ECRCL 31.13 ml/min Low 50-250 [facility] Comment on above: Performed By: #### L 500.2500, L503.7505, L509.7001, L100.0100 ####[facility] [address] [place], [address] GAP 13 Normal 5-15 [facility] Comment on above: Performed By: #### L 500.2500, L503.7505, L509.7001, L100.0100 ####[facility] [address] [place], [address] GFR/1.73 sq M.predicted among non-blacks MDRD (S/P/Bld) [Vol rate/Area] 37 mL/min/{1.73_m2} Low >60 [facility] Comment on above: Result Comment: mL/m in/1.73m2 CKD-EPI Creatinine Equation (2020) Performed By: #### L 500.2500, L503.7505, L509.7001, L100.0100 ####[facility] [address] [place], [address] Glucose [Mass/Vol] 166 mg/dL High 70-99 [facility] Comment on above: Performed By: #### L 500.2500, L503.7505, L509.7001, L100.0100 ####[facility] [address] [place], [address] Potassium [Moles/Vol] 4.9 mmol/L Normal 3.3-5.1 [facility] Comment on above: Performed By: #### L 500.2500, L503.7505, L509.7001, L100.0100 ####[facility] [address] [place], [address] Sodium [Moles/Vol] 134 mmol/L Normal 133-145 [facility] Comment on above: Performed By: #### L 500.2500, L503.7505, L509.7001, L100.0100 ####[facility] [address] [place], [address] Urea nitrogen [Mass/Vol] 44 mg/dL High 4-19 [facility] Comment on above: Performed By: #### L 500.2500, L503.7505, L509.7001, L100.0100 ####[facility] [address] [place], [address] Basophil percentageOrdered B y: Gonzalo Sebastian on 12-06-2024 Basophils/100 WBC (Bld) 0.2 % 0-1 [facility] Basophil percentage 0.2 % 0-1 [facility] Carbon dioxide, total [Moles /volume] in Central venous bloodOrdered By: Gonzalo Sebastian on 12-06-2024 CO2 [Moles/Vol] 23.2 mmol/L 21.0-32.0 [facility] Chloride assayOrdered By: Soares on 12-06-2024 Chloride [Moles/Vol] 98 mmol/L 98-108 [facility] Echocardiogram study reportO rdered By: Bridgette Gaxiola on 12-06-2024 Study report [facility] [address] [place] [address] Echo Complete 12/05/24 1413 MR#: [id number] Acct: [id number] Name: GRACIE BANUELOS Rep #:[id number] : 1965 59 From: Bridgette lopez MD Attending Dr: Dr. Yrn Kahn, DO Status: ADM IN Ordering Dr: Gonzalo Sebastian DO Date: 07/22 Location: [facility] Sex: F C Admitted: 12/04/24 Reason For [...] insufficiency. Ordering Physician: Gonzalo Sebastian Referring Physician: MISBAH ELKINS Performed By: Grazyna Lazaro RCS 12/06/24 1251 Date _ Bridgette Gaxiola MD CC: Dr. Misbah Elkins MD; Dr. Gonzalo Sebastian DO; Dr. Yrn Kahn DO ~ Date Dictated: 12/05/24 1413 Date Transcribed: 12/06/24 1251 Specialist Managers: Signed [facility] Work Phone: Eosinophil percentageOrdered By: Gonzalo Sebastian on 12-06-2024 Eosinophils/100 WBC (Bld) 0.0 % 0-5 [facility] Eosinophil percentage 0.0 % 0-5 [facility] Erythrocyte distribution wid th ratioOrdered By: Gonzalo Sebastian on 12-06-2024 Erythrocyte distribution width (RBC) [Ratio] 15.3 % High 11.6-14.6 [facility] Erythrocyte distribution wid th standard deviationOrdered By: Gonzalo Sebastian on 12-06-2024 Erythrocyte distribution width (RBC) [Entitic vol] 47.7 fL High 35.1-43.9 [facility] Estimation of creatinine frankie aranceOrdered By: Gonzalo Sebastian on 12-06-2024 Estimated Creatinine Clearance Calc 31.13 ml/min Low 50-250 [facility] GFR/1.73 sq M.predicted gregory g non-blacks MDRD (S/P/Bld) [Vol rate/Area]Ordered By: Gonzalo Sebastian on 12-06-2024 Estimated GFR (MDRD) Non-Af Amer 37 Low >60 [facility] Comment on above: mL/min/1.73m2 CKD-EP I Creatinine Equation (2020) Hematocrit Auto (Bld) [Volum e fraction]Ordered By: Gonzalo Sebastian on 12-06-2024 Hematocrit (Bld) [Volume fraction] 39.6 % 37-47 [facility] Hemoglobin measurementOrdere d By: Gonzalo Sebastian on 12-06-2024 Hemoglobin (Bld) [Mass/Vol] 12.6 g/dL 12.0-15.0 [facility] Immature granulocytes/100 WB C Auto (Bld)Ordered By: Gonzalo Sebastian on 12-06-2024 Immature granulocytes/100 WBC (Bld) 0.900 % 0.0-0.9 [facility] Comment on above: IG% - Immature Granu locytes (promyelocytes, myelocytes and metamyelocytes) > 1% indicates that a LEFT SHIFT is Present. Automated immature granulocyte percentage 0.900 % 0.0-0.9 [facility] L503.7505on 12-06-2024 Natriuretic peptide B (Bld) [Mass/Vol] 2014 pg/mL High <=900 [facility] Comment on above: Result Comment: Hear t Failure Unlikely: < 300 pg/mLHeart Failure Likely< 50 Years: > 450 pg/mL50-75 Years: > 900 pg/mL>75 Years: > 1800 pg/mL Performed By: #### L 500.2500, L503.7505, L509.7001, L100.0100 ####[facility] [address] [facility] [place], [address] L509.7001on 12-06-2024 Procalcitonin 0.31 ng/mL High <=0.10 [facility] Comment on above: Result Comment: Inte rpretation:<0.10-0.25 ng/mL: Antibiotic therapy discouraged. Bacterialinfection unlikely.0.25-0.50 ng/mL: Antibiotic therapy encouraged. Bacterialinfection possible.>0.50 ng/mL: Antibiotic therapy strongly encouraged.Suggestive of presence of bacterial infection.PCT should always be interpreted in the clinical context ofthe patient. Therefore, clinicians should use the PCTresults in conjunction with other laboratory findings andclinical signs of the patient. Performed By: #### L 500.2500, L503.7505, L509.7001, L100.0100 ####[facility] [address] [place], [place], [address] Lymphocytes Auto (Unsp spec) [#/Vol]Ordered By: Gonzalo Sebastian on 12-06-2024 Lymphocytes (Bld) [#/Vol] 1.17 10*3/uL 0.83-4.51 [facility] Lymphocytes/100 WBC Auto (Un sp spec)Ordered By: Gonzalo Sebastian on 12-06-2024 Lymphocytes/100 WBC (Bld) 4.5 % Low 19- [facility] Automated lymphocyte count as percentage of total leukocytes 4.5 % Low 19- [facility] MCV (mean corpuscular volume ) determinationOrdered By: Gonzalo Sebastian on 12-06-2024 MCV (RBC) [Entitic vol] 85.7 fL 81-99 [facility] Mean corpuscular hemoglobin (MCH) determinationOrdered By: Gonzalo Sebastian on 12-06-2024 MCH (RBC) [Entitic mass] 27.3 pg 27.0-32.0 [facility] Mean corpuscular hemoglobin concentration (MCHC) determinationOrdered By: Gonzalo Sebastian on 12-06-2024 MCHC (RBC) [Mass/Vol] 31.8 g/dL Low 32-36 [facility] Mean platelet volume determi nationOrdered By: Gonzalo Sebastian on 12-06-2024 Platelet mean volume (Bld) [Entitic vol] 10.5 fL 6.2-12.0 [facility] Monocyte percentageOrdered B y: Gonzalo Sebastian on 12-06-2024 Monocytes/100 WBC (Bld) 6.0 % 0-10 [facility] Monocyte percentage 6.0 % 0-10 [facility] Neutrophil percentageOrdered By: Gonzalo Sebastian on 12-06-2024 Neutrophils/100 WBC (Bld) 88.4 % High 47-70 [facility] No Panel InformationOrdered By: Gonzalo Sebastian on 12-06-2024 Procalcitonin 0.31 ng/mL High <0.11 [facility] Comment on above: Interpretation:<0.10 -0.25 ng/mL: Antibiotic [...] of the patient. 0.31 ng/mL High <0.11 [facility] Nucleated red blood cell per centageOrdered By: Gonzalo Sebastian on 12-06-2024 Nucleated RBC/100 WBC (Bld) [Ratio] 0 % 0-5 [facility] Nucleated red blood cell percentage 0 % 0-5 [facility] Pathologist review Geovany (Unsp spec) [Interp]Ordered By: Gonzalo Sebastian on 12-06-2024 Differential Pathologist's Review January [facility] Platelet countOrdered By: Soares on 12-06-2024 Platelets (Bld) [#/Vol] 260 10*3/uL 150-450 [facility] Platelets LM Ql (Bld)Ordered By: Gonzalo Sebastian on 12-06-2024 Platelet Estimate A ADEQ [facility] Potassium (Unsp spec) [Mass/ Vol]Ordered By: Gonzalo Sebastian on 12-06-2024 Potassium [Moles/Vol] 4.9 mmol/L 3.3-5.1 [facility] RBC Auto (Bld) [#/Vol]Ordere d By: Gonzalo Sebastian on 12-06-2024 RBC (Bld) [#/Vol] 4.62 10*6/uL 4.2-5.4 [facility] Serum creatinine measurement (mass/volume)Ordered By: Gonzalo Sebastian on 12-06-2024 Creatinine [Mass/Vol] 1.57 mg/dL High 0.70-1.20 [facility] Serum glucose measurement (m ass/volume)Ordered By: Gonzalo Sebastian on 12-06-2024 Glucose [Mass/Vol] 166 mg/dL High 70-99 [facility] Serum or plasma calcium esthela urement (mass/volume)Ordered By: Gonzalo Sebastian on 12-06-2024 Calcium [Mass/Vol] 9.3 mg/dL 7.6-11.0 [facility] Serum or plasma urea nitroge n measurement (mass/volume)Ordered By: Gonzalo Sebastian on 12-06-2024 Urea nitrogen [Mass/Vol] 44 mg/dL High 4-19 [facility] Sodium levelOrdered By: Matt Sebastian on 12-06-2024 Sodium [Moles/Vol] 134 mmol/L 133-145 [facility] White blood cell (WBC) count Ordered By: Gonzalo Sebastian on 12-06-2024 WBC (Bld) [#/Vol] 26.2 10*3/uL High 4.4-11.0 [facility] ALP [Catalytic activity/Vol] Ordered By: Aleta Aguayo on 12-05-2024 Serum or plasma alkaline phosphatase measurement 149 U/L High 35-104 [facility] ALT [Catalytic activity/Vol] Ordered By: Aleta Aguayo on 12-05-2024 Serum or plasma alanine aminotransferase (ALT) measurement 39 U/L High <35 [facility] Albumin [Mass/Vol]Ordered By : Aleta Aguayo on 12-05-2024 Serum or plasma albumin measurement (mass/volume) 3.8 g/dL 3.4-4.8 [facility] Albumin/Globulin [Mass ratio ]Ordered By: Aleta Aguayo on 12-05-2024 Serum or plasma albumin/globulin mass ratio 1.2 RATIO 0.9-2.4 [facility] Arterial patency Wrist arter y --pre arterial punctureOrdered By: Yrn Kahn on 12-05-2024 Sergei Test Positive [facility] Assessment of wrist artery patency prior to arterial puncture Positive [facility] Assessment of wrist artery p atency prior to arterial punctureOrdered By: Yrn Kahn on 12-05-2024 Arterial patency Wrist artery --pre arterial puncture Positive [facility] Base excess Calc (BldV) [Mol es/Vol]Ordered By: Yrn Kahn on 12-05-2024 Blood Gas Base Excess -1 mmol/L -2-2 [facility] Blood base excess determination -1 mmol/L -2-2 [facility] Bilirubin, totalOrdered By: Aleta Aguayo on 12-05-2024 Bilirubin [Mass/Vol] 0.18 mg/dL 0.00-1.30 [facility] Bilirubin, total 0.18 mg/dL 0.00-1.30 [facility] Base excess Calc (Bld) [Moles/Vol] -1 mmol/L Normal -2 to +2 [facility] Comment on above: Performed By: #### L 9000.0800 ####[facility] [address] [place], [place], [address] Blood Gas Type ART Normal [facility] Comment on above: Performed By: #### L 9000.0800 ####[facility] [address] [place], [place], [address] CO2 [Moles/Vol] 28 mmol/L Normal [facility] Comment on above: Performed By: #### L 9000.0800 ####[facility] [address] [place], [address] Comment 60 75 Normal [facility] Comment on above: Performed By: #### L 9000.0800 ####[facility] [address] [place], [address] HCO3 (Bld) [Moles/Vol] 26.4 mmol/L High 22-26 [facility] Comment on above: Performed By: #### L 9000.0800 ####[facility] [address] [place], [address] Mode Not entered [facility] Comment on above: Performed By: #### L 9000.0800 ####[facility] [address] [place], [address] O2 Delivery Dev Not entered [facility] Comment on above: Performed By: #### L 9000.0800 ####[facility] [address] [place], [address] pCO2 61.0 mmHg High 35-45 [facility] Comment on above: Performed By: #### L 9000.0800 ####[facility] [address] [place], [address] pH (Bld) 7.24 [pH] Low 7.35-7.45 [facility] Comment on above: Performed By: #### L 9000.0800 ####[facility] [address] [place], [address] PO2 68 mmHG Low 75-100 [facility] Comment on above: Performed By: #### L 9000.0800 ####[facility] [address] [place], [address] SITE R Radial Normal [facility] Comment on above: Performed By: #### L 9000.0800 ####[facility] [address] [place], [address] SO2 89 Low 95-99 [facility] Comment on above: Performed By: #### L 9000.0800 ####[facility] [address] [place], [address] SERGEI TEST Positive Normal [facility] Comment on above: Performed By: #### L 9000.0800 ####[facility] [address] [place], [address] Base excess Calc (Bld) [Moles/Vol] -3 mmol/L Low -2 to +2 [facility] Comment on above: Performed By: #### L 9000.0800 ####[facility] [address] [place], [address] Blood Gas Type ART [facility] Comment on above: Performed By: #### L 9000.0800 ####[facility] [address] [place], [address] CO2 [Moles/Vol] 25 mmol/L [facility] Comment on above: Performed By: #### L 9000.0800 ####[facility] [address] [place], [address] Comment 425 Normal [facility] Comment on above: Performed By: #### L 9000.0800 ####[facility] [address] [place], [address] FI02 45.0 Normal [facility] Comment on above: Performed By: #### L 9000.0800 ####[facility] [address] [place], [address] HCO3 (Bld) [Moles/Vol] 23.8 mmol/L Normal 22-26 [facility] Comment on above: Performed By: #### L 9000.0800 ####[facility] [address] [place], [address] Mode Not entered Normal [facility] Comment on above: Performed By: #### L 9000.0800 ####[facility] [address] [place], [address] O2 Delivery Dev BiPAP Normal [facility] Comment on above: Performed By: #### L 9000.0800 ####[facility] [address] [place], [address] pCO2 51.6 mmHg High 35-45 [facility] Comment on above: Performed By: #### L 9000.0800 ####[facility] [address] [place], [address] pH (Bld) 7.27 [pH] Low 7.35-7.45 [facility] Comment on above: Performed By: #### L 9000.0800 ####[facility] [address] [place], [address] PO2 57 mmHG Low 75-100 [facility] Comment on above: Performed By: #### L 9000.0800 ####[facility] [address] [place], [address] RR 14 Normal [facility] Comment on above: Performed By: #### L 9000.0800 ####[facility] [address] [place], [address] SITE R Radial Normal [facility] Comment on above: Performed By: #### L 9000.0800 ####[facility] [address] [place], [address] SO2 85 Low 95-99 [facility] Comment on above: Performed By: #### L 9000.0800 ####[facility] [address] [place], [address] Blood base excess determinat ionOrdered By: Yrn Kahn on 12-05-2024 Base excess Calc (BldV) [Moles/Vol] -1 mmol/L -2-2 [facility] Blood bicarbonate measuremen tOrdered By: Yrn Kahn on 12-05-2024 Blood Gas Bicarbonate Actual 26.4 mmol/L High [facility] HCO3 (Bld) [Moles/Vol] 26.4 mmol/L High [facility] Blood bicarbonate measurement 26.4 mmol/L High [facility] CBC W/Diff, Automatedon 11-26 Absolute Lymph 0.86 X10 3/uL Normal 0.83-4.51 [facility] Comment on above: Performed By: #### L 100.0100, L501.5200, L500.4050, L501.2300 ####[facility] [address] [place], [address] Absolute Neut 15.1 X10 3/uL High 2.0-7.7 [facility] Comment on above: Performed By: #### L 100.0100, L501.5200, L500.4050, L501.2300 ####[facility] [address] [place], [address] Basophils/100 WBC (Bld) 0.4 % Normal 0-1 [facility] Comment on above: Performed By: #### L 100.0100, L501.5200, L500.4050, L501.2300 ####[facility] [address] [place], [address] Eosinophils/100 WBC (Bld) 0.1 % Normal 0-5 [facility] Comment on above: Performed By: #### L 100.0100, L501.5200, L500.4050, L501.2300 ####[facility] [address] [place], [address] Erythrocyte distribution width (RBC) [Ratio] 14.9 % High 11.6-14.6 [facility] Comment on above: Performed By: #### L 100.0100, L501.5200, L500.4050, L501.2300 ####[facility] [address] [place], [address] Hematocrit (Bld) [Volume fraction] 39.2 % Normal 37-47 [facility] Comment on above: Performed By: #### L 100.0100, L501.5200, L500.4050, L501.2300 ####[facility] [address] [place], [address] Hemoglobin (Bld) [Mass/Vol] 12.2 g/dL Normal 12.0-15.0 [facility] Comment on above: Performed By: #### L 100.0100, L501.5200, L500.4050, L501.2300 ####[facility] [address] [place], [address] IG% 1.400 High 0.0-0.9 [facility] Comment on above: Result Comment: IG% - Immature Granulocytes (promyelocytes, myelocytes andmetamyelocytes) > 1% indicates that a LEFT SHIFT is Present. Performed By: #### L 100.0100, L501.5200, L500.4050, L501.2300 ####[facility] [address] [place], [address] Lymphocytes/100 WBC (Bld) 5.1 % Low 19-41 [facility] Comment on above: Performed By: #### L 100.0100, L501.5200, L500.4050, L501.2300 ####[facility] [address] [place], [address] MCH (RBC) [Entitic mass] 26.5 pg Low 27.0-32.0 [facility] Comment on above: Performed By: #### L 100.0100, L501.5200, L500.4050, L501.2300 ####[facility] [address] [place], [address] MCHC (RBC) [Mass/Vol] 31.1 g/dL Low 32-36 [facility] Comment on above: Performed By: #### L 100.0100, L501.5200, L500.4050, L501.2300 ####[facility] [address] [place], [address] MCV (RBC) [Entitic vol] 85.0 fL Normal 81-99 [facility] Comment on above: Performed By: #### L 100.0100, L501.5200, L500.4050, L501.2300 ####[facility] [address] [place], [address] Monocytes/100 WBC (Bld) 4.0 % Normal 0-10 [facility] Comment on above: Performed By: #### L 100.0100, L501.5200, L500.4050, L501.2300 ####[facility] [address] [place], [address] Neutrophils/100 WBC (Bld) 89.0 % High 47-70 [facility] Comment on above: Performed By: #### L 100.0100, L501.5200, L500.4050, L501.2300 ####[facility] [address] [place], [address] Nucleated RBC (Bld) [#/Vol] 0 10*3/uL Normal 0-5 [facility] Comment on above: Performed By: #### L 100.0100, L501.5200, L500.4050, L501.2300 ####[facility] [address] [place], [address] Platelet mean volume (Bld) [Entitic vol] 10.9 fL Normal 6.2-12.0 [facility] Comment on above: Performed By: #### L 100.0100, L501.5200, L500.4050, L501.2300 ####[facility] [address] [place], [address] Platelets (Bld) [#/Vol] 250 10*3/uL Normal 150-450 [facility] Comment on above: Performed By: #### L 100.0100, L501.5200, L500.4050, L501.2300 ####[facility] [address] [place], [address] RBC (Bld) [#/Vol] 4.61 10*6/uL Normal 4.2-5.4 [facility] Comment on above: Performed By: #### L 100.0100, L501.5200, L500.4050, L501.2300 ####[facility] [address] [place], [address] RDW SD 46.7 fl High 35.1-43.9 [facility] Comment on above: Performed By: #### L 100.0100, L501.5200, L500.4050, L501.2300 ####[facility] [address] [place], [address] WBC (Bld) [#/Vol] 16.9 10*3/uL High 4.4-11.0 [facility] Comment on above: Performed By: #### L 100.0100, L501.5200, L500.4050, L501.2300 ####[facility] [address] [place], [address] Comprehensive Metabolic Prof ilon 12-05-2024 Albumin [Mass/Vol] 3.8 g/dL Normal 3.4-4.8 [facility] Comment on above: Performed By: #### L 100.0100, L501.5200, L500.4050, L501.2300 ####[facility] [address] [place], [address] Albumin/Globulin [Mass ratio] 1.2 {ratio} Normal 0.9-2.4 [facility] Comment on above: Performed By: #### L 100.0100, L501.5200, L500.4050, L501.2300 ####[facility] [address] [place], [address] ALK PHOS 149 U/L High 35-104 [facility] Comment on above: Performed By: #### L 100.0100, L501.5200, L500.4050, L501.2300 ####[facility] [address] [place], [address] ALT [Catalytic activity/Vol] 39 U/L High <=34 [facility] Comment on above: Performed By: #### L 100.0100, L501.5200, L500.4050, L501.2300 ####[facility] [address] [place], [address] AST [Catalytic activity/Vol] 62 U/L High <=31 [facility] Comment on above: Performed By: #### L 100.0100, L501.5200, L500.4050, L501.2300 ####[facility] [address] [place], [address] Bilirubin [Mass/Vol] 0.18 mg/dL Normal 0.00-1.30 [facility] Comment on above: Performed By: #### L 100.0100, L501.5200, L500.4050, L501.2300 ####[facility] [address] [place], [address] BUN/CRE 14.0 RATIO Normal 10-20 [facility] Comment on above: Performed By: #### L 100.0100, L501.5200, L500.4050, L501.2300 ####[facility] [address] [place], [address] Calcium [Mass/Vol] 6.7 mg/dL Low 7.6-11.0 [facility] Comment on above: Performed By: #### L 100.0100, L501.5200, L500.4050, L501.2300 ####[facility] [address] [place], [address] Chloride [Moles/Vol] 97 mmol/L Low 98-108 [facility] Comment on above: Performed By: #### L 100.0100, L501.5200, L500.4050, L501.2300 ####[facility] [address] [place], [address] CO2 [Moles/Vol] 21.0 mmol/L Normal 21.0-32.0 [facility] Comment on above: Performed By: #### L 100.0100, L501.5200, L500.4050, L501.2300 ####[facility] [address] [place], [address] Creatinine [Mass/Vol] 1.37 mg/dL High 0.70-1.20 [facility] Comment on above: Performed By: #### L 100.0100, L501.5200, L500.4050, L501.2300 ####[facility] [address] [place], [address] ECRCL 35.67 ml/min Low 50-250 [facility] Comment on above: Performed By: #### L 100.0100, L501.5200, L500.4050, L501.2300 ####[facility] [address] [place], [address] GAP 16 High 5-15 [facility] Comment on above: Performed By: #### L 100.0100, L501.5200, L500.4050, L501.2300 ####[facility] [address] [place], [address] GFR/1.73 sq M.predicted among non-blacks MDRD (S/P/Bld) [Vol rate/Area] 44 mL/min/{1.73_m2} Low >60 [facility] Comment on above: Result Comment: mL/m in/1.73m2 CKD-EPI Creatinine Equation (2020) Performed By: #### L 100.0100, L501.5200, L500.4050, L501.2300 ####[facility] [address] [place], [address] Globulin (S) [Mass/Vol] 3.2 g/dL Normal 2.2-4.2 [facility] Comment on above: Performed By: #### L 100.0100, L501.5200, L500.4050, L501.2300 ####[facility] [address] [place], [address] Glucose [Mass/Vol] 144 mg/dL High 70-99 [facility] Comment on above: Performed By: #### L 100.0100, L501.5200, L500.4050, L501.2300 ####[facility] [address] [place], [address] Potassium [Moles/Vol] 4.8 mmol/L Normal 3.3-5.1 [facility] Comment on above: Performed By: #### L 100.0100, L501.5200, L500.4050, L501.2300 ####[facility] [address] [place], [address] Sodium [Moles/Vol] 134 mmol/L Normal 133-145 [facility] Comment on above: Performed By: #### L 100.0100, L501.5200, L500.4050, L501.2300 ####[facility] [address] [place], [address] T PROT 7.0 g/dL Normal 5.9-8.4 [facility] Comment on above: Performed By: #### L 100.0100, L501.5200, L500.4050, L501.2300 ####[facility] [address] [place], [address] Urea nitrogen [Mass/Vol] 19 mg/dL Normal 4-19 [facility] Comment on above: Performed By: #### L 100.0100, L501.5200, L500.4050, L501.2300 ####[facility] [address] [place], [address] Consultation - Intensiviston 12-05-2024 Consultation - Golf Course Manager Normal [facility] Determination of fraction of inspired oxygenOrdered By: Yrn Kahn on 12-05-2024 Blood Gas Oxygen Percent 45.0 [facility] Determination of fraction of inspired oxygen 45.0 [facility] Echo Completeon 12-05-2024 Echo Complete Normal [facility] Electrocardiogram reportOrde red By: Jose Guadalupe Cotter on 12-05-2024 EKG study [facility] [address] [place] [address] 12 Lead EKG 12/04/24 1614 MR#: [id number] Acct: [id number] Name: GRACIE BANUELOS Rep #:[id number] : 1965 59 From: Jose Guadalupe gomez MD Attending Dr: Dr. Yrn Kahn, DO Status: ADM IN Ordering Dr: Franco Inman MD Date: 06/22 Location: U Sex: F C Admitted: 12/04/24 Test Reason [...] undetermined Abnormal ECG baseline artifact Confirmed by Jose Guadalupe Cotter ([id number]), purchase request editor LEONARD BAUTISTA ([id number]) on 12/05/2024 10:48:28 AM Referred By: Confirmed By: Jose Guadalupe Cotter 12/05/24 1048 Date _ Jose Guadalupe Cotter MD CC: Dr. Misbah Elkins MD; Dr. Franco Inman MD; Dr. Yrn Kahn, DO ~ Signed [facility] Other Phone: Laboratory - Chemistry and C hemistry - challengeOrdered By: Aleta Aguayo on 12-05-2024 AST [Catalytic activity/Vol] 62 U/L High <32 [facility] Magnesiumon 12-05-2024 Magnesium [Mass/Vol] 2.0 mg/dL Normal 1.5-2.2 [facility] Comment on above: Performed By: #### L 100.0100, L501.5200, L500.4050, L501.2300 ####[facility] [address] [place], [place], [address] Magnesium (Unsp spec) [Mass/ Vol]Ordered By: Aleta Aguayo on 12-05-2024 Magnesium [Mass/Vol] 2.0 mg/dL 1.5-2.2 [facility] Magnesium measurement (mass/volume) 2.0 mg/dL 1.5-2.2 [facility] Magnesium measurement (mass/ volume)Ordered By: Aleta Aguayo on 12-05-2024 Magnesium (Unsp spec) [Mass/Vol] 2.0 mg/dL 1.5-2.2 [facility] Measurement, pHOrdered By: Mike Kahn on 12-05-2024 pH (Unsp spec) 7.24 [pH] Low 7.35-7.45 [facility] No Panel InformationOrdered By: Yrn Kahn on 12-05-2024 Blood Gas Clinical Comments 60 75 [facility] Blood Gas Sample Site R Radial [facility] Blood Gas Specimen Type ART [facility] Blood Gas Vent Mode Not entered [facility] Oxygen Delivery Device Not entered [facility] ART [facility] R Radial [facility] Not entered [facility] 60 75 [facility] Blood Gas Respiration Rate 14 [facility] 14 [facility] No Panel InformationOrdered By: Aleta Aguayo on 12-05-2024 62 U/L High <32 [facility] Oxygen saturation measuremen tOrdered By: Yrn Kahn on 12-05-2024 Blood Gas Oxygen Saturation 89 % Low 95-99 [facility] Oxygen saturation measurement 89 % Low 95-99 [facility] Partial pressure of carbon d ioxide measurementOrdered By: Yrn Kahn on 12-05-2024 Arterial Blood Partial Pressure CO2 61.0 mmHg High 35-45 [facility] Partial pressure of carbon dioxide measurement 61.0 mmHg High 35-45 [facility] Partial pressure of oxygen m easurementOrdered By: Yrn Kahn on 12-05-2024 Arterial Blood Partial Pressure O2 68 mmHG Low 75-100 [facility] Partial pressure of oxygen measurement 68 mmHG Low 75-100 [facility] Phosphoruson 12-05-2024 Phosphate [Mass/Vol] 6.2 mg/dL High 2.7-4.5 [facility] Comment on above: Performed By: #### L 100.0100, L501.5200, L500.4050, L501.2300 ####[facility] [address] [place], [place], [address] RESPIRATORY PANEL MOLECULARo n 12-05-2024 RP PANEL Normal [facility] Comment on above: Performed By: #### M 100.638 ####[facility] [address] [place], [place], [address] Serum globulin measurementOr dered By: Aleta Aguayo on 12-05-2024 Globulin (S) [Mass/Vol] 3.2 g/dL 2.2-4.2 [facility] Serum globulin measurement 3.2 g/dL 2.2-4.2 [facility] Serum or plasma alanine pimentel otransferase (ALT) measurementOrdered By: Aleta Aguayo on 12-05-2024 ALT [Catalytic activity/Vol] 39 U/L High <35 [facility] Serum or plasma albumin esthela urement (mass/volume)Ordered By: Aleta Aguayo on 12-05-2024 Albumin [Mass/Vol] 3.8 g/dL 3.4-4.8 [facility] Serum or plasma albumin/glob ulin mass ratioOrdered By: Aleta Aguayo on 12-05-2024 Albumin/Globulin [Mass ratio] 1.2 {ratio} 0.9-2.4 [facility] Serum or plasma alkaline jose sphatase measurementOrdered By: Aleta Aguayo on 12-05-2024 ALP [Catalytic activity/Vol] 149 U/L High 35-104 [facility] Serum phosphorus measurement Ordered By: Aleta Aguayo on 12-05-2024 Phosphorus Level 6.2 mg/dL High 2.7-4.5 [facility] Serum phosphorus measurement 6.2 mg/dL High 2.7-4.5 [facility] Total carbon dioxide measure mentOrdered By: Yrn Kahn on 12-05-2024 Blood Gas Total CO2 28 mmol/L [facility] CO2 [Moles/Vol] 28 mmol/L [facility] Total carbon dioxide measurement 28 mmol/L [facility] Total proteinOrdered By: Lilibeth Aguayo on 12-05-2024 Protein [Mass/Vol] 7.0 g/dL 5.9-8.4 [facility] Total protein 7.0 g/dL 5.9-8.4 [facility] pH (Unsp spec)Ordered By: Cherelle Kahn on 12-05-2024 Blood Gas pH 7.24 Low 7.35-7.45 [facility] Measurement, pH 7.24 Low 7.35-7.45 [facility] 12 Lead EKGon 12-04-2024 12 Lead EKG Normal [facility] Absolute neutrophil countOrd ered By: Franco Inman on 12-04-2024 Neutrophils (Bld) [#/Vol] 11.4 10*3/uL High 2.0-7.7 [facility] Anion gap in Serum or Plasma Ordered By: Franco Inman on 12-04-2024 Anion gap [Moles/Vol] 13 mmol/L 5-15 [facility] Assessment of wrist artery p atency prior to arterial punctureOrdered By: Aleta Aguayo on 12-04-2024 Sergei Test Positive Normal [facility] Comment on above: Performed By: #### L 9000.0800 ####[facility] [address] [place], [address] BUN/creatinine ratioOrdered By: Franco Inman on 12-04-2024 Urea nitrogen/Creatinine [Mass ratio] 10.4 mg/mg 10- [facility] Base excess Calc (BldV) [Mol es/Vol]Ordered By: Aleta Aguayo on 12-04-2024 Blood Gas Base Excess 1 mmol/L -2-2 [facility] Basic Metabolic Profile (BMP )on 12-04-2024 BUN/CRE 10.4 RATIO Normal 07-17 [facility] Comment on above: Performed By: #### L 500.2500, L100.0100 ####[facility] [address] [place], [address] Calcium [Mass/Vol] 9.2 mg/dL Normal 7.6-11.0 [facility] Comment on above: Performed By: #### L 500.2500, L100.0100 ####[facility] [address] [place], [address] Chloride [Moles/Vol] 99 mmol/L Normal 98-108 [facility] Comment on above: Performed By: #### L 500.2500, L100.0100 ####[facility] [address] [place], [address] CO2 [Moles/Vol] 24.6 mmol/L Normal 21.0-32.0 [facility] Comment on above: Performed By: #### L 500.2500, L100.0100 ####[facility] [address] [place], [address] Creatinine [Mass/Vol] 0.92 mg/dL Normal 0.70-1.20 [facility] Comment on above: Performed By: #### L 500.2500, L100.0100 ####[facility] [address] [place], [address] ECRCL 53.12 ml/min Normal 50-250 [facility] Comment on above: Performed By: #### L 500.2500, L100.0100 ####[facility] [address] [place], [address] GAP 13 Normal 5-15 [facility] Comment on above: Performed By: #### L 500.2500, L100.0100 ####[facility] [address] [place], [address] GFR/1.73 sq M.predicted among non-blacks MDRD (S/P/Bld) [Vol rate/Area] 71 mL/min/{1.73_m2} Normal >60 [facility] Comment on above: Result Comment: mL/m in/1.73m2 CKD-EPI Creatinine Equation (2020) Performed By: #### L 500.2500, L100.0100 ####[facility] [address] [place], [address] Glucose [Mass/Vol] 118 mg/dL High 70-99 [facility] Comment on above: Performed By: #### L 500.2500, L100.0100 ####[facility] [address] [place], [address] Potassium [Moles/Vol] 4.2 mmol/L Normal 3.3-5.1 [facility] Comment on above: Performed By: #### L 500.2500, L100.0100 ####[facility] [address] [place], [address] Sodium [Moles/Vol] 137 mmol/L Normal 133-145 [facility] Comment on above: Performed By: #### L 500.2500, L100.0100 ####[facility] [address] [place], [address] Urea nitrogen [Mass/Vol] 10 mg/dL Normal 4-19 [facility] Comment on above: Performed By: #### L 500.2500, L100.0100 ####[facility] [address] [place], [address] Basophil percentageOrdered B y: Franco Inman on 12-04-2024 Basophils/100 WBC (Bld) 0.9 % 0-1 [facility] Base excess Calc (Bld) [Moles/Vol] 1 mmol/L Normal -2 to +2 [facility] Comment on above: Performed By: #### L 9000.0800 ####[facility] [address] [place], [address] Blood Gas Type ART Normal [facility] Comment on above: Performed By: #### L 9000.0800 ####[facility] [address] [place], [address] CO2 [Moles/Vol] 30 mmol/L [facility] Comment on above: Performed By: #### L 9000.0800 ####[facility] [address] [place], [address] FI02 5.0 Normal [facility] Comment on above: Performed By: #### L 9000.0800 ####[facility] [address] [place], [address] HCO3 (Bld) [Moles/Vol] 28.1 mmol/L High 22-26 [facility] Comment on above: Performed By: #### L 9000.0800 ####[facility] [address] [place], [address] Mode Not entered Normal [facility] Comment on above: Performed By: #### L 9000.0800 ####[facility] [address] [place], [address] O2 Delivery Dev Cannula Normal [facility] Comment on above: Performed By: #### L 9000.0800 ####[facility] [address] [place], [address] pCO2 65.4 mmHg High 35-45 [facility] Comment on above: Performed By: #### L 9000.0800 ####[facility] [address] [place], [address] pH (Bld) 7.24 [pH] Low 7.35-7.45 [facility] Comment on above: Performed By: #### L 9000.0800 ####[facility] [address] [place], [address] PO2 68 mmHG Low 75-100 [facility] Comment on above: Performed By: #### L 9000.0800 ####[facility] [address] [place], [address] SITE R Radial Normal [facility] Comment on above: Performed By: #### L 9000.0800 ####[facility] [address] [place], [address] SO2 89 Low 95-99 [facility] Comment on above: Performed By: #### L 9000.0800 ####[facility] [address] [place], [address] Blood bicarbonate measuremen tOrdered By: Aleta Aguayo on 12-04-2024 Blood Gas Bicarbonate Actual 28.1 mmol/L High 22-26 [facility] CBC W/Diff, Automatedon 03-0 Absolute Lymph 0.96 X10 3/uL Normal 0.83-4.51 [facility] Comment on above: Performed By: #### L 500.2500, L100.0100 ####[facility] [address] [place], [address] Absolute Neut 11.4 X10 3/uL High 2.0-7.7 [facility] Comment on above: Performed By: #### L 500.2500, L100.0100 ####[facility] [address] [place], [address] Basophils/100 WBC (Bld) 0.9 % Normal 0-1 [facility] Comment on above: Performed By: #### L 500.2500, L100.0100 ####[facility] [address] [place], [address] Eosinophils/100 WBC (Bld) 0.6 % Normal 0-5 [facility] Comment on above: Performed By: #### L 500.2500, L100.0100 ####[facility] [address] [place], [address] Erythrocyte distribution width (RBC) [Ratio] 14.7 % High 11.6-14.6 [facility] Comment on above: Performed By: #### L 500.2500, L100.0100 ####[facility] [address] [place], [address] Hematocrit (Bld) [Volume fraction] 43.7 % Normal 37-47 [facility] Comment on above: Performed By: #### L 500.2500, L100.0100 ####[facility] [address] [place], [address] Hemoglobin (Bld) [Mass/Vol] 14.1 g/dL Normal 12.0-15.0 [facility] Comment on above: Performed By: #### L 500.2500, L100.0100 ####[facility] [address] [place], [address] IG% 0.800 Normal 0.0-0.9 [facility] Comment on above: Result Comment: IG% - Immature Granulocytes (promyelocytes, myelocytes andmetamyelocytes) > 1% indicates that a LEFT SHIFT is Present. Performed By: #### L 500.2500, L100.0100 ####[facility] [address] [place], [address] Lymphocytes/100 WBC (Bld) 6.8 % Low 19-41 [facility] Comment on above: Performed By: #### L 500.2500, L100.0100 ####[facility] [address] [place], [address] MCH (RBC) [Entitic mass] 26.9 pg Low 27.0-32.0 [facility] Comment on above: Performed By: #### L 500.2500, L100.0100 ####[facility] [address] [place], [address] MCHC (RBC) [Mass/Vol] 32.3 g/dL Normal 32-36 [facility] Comment on above: Performed By: #### L 500.2500, L100.0100 ####[facility] [address] [place], [address] MCV (RBC) [Entitic vol] 83.4 fL Normal 81-99 [facility] Comment on above: Performed By: #### L 500.2500, L100.0100 ####[facility] [address] [place], [address] Monocytes/100 WBC (Bld) 10.4 % High 0-10 [facility] Comment on above: Performed By: #### L 500.2500, L100.0100 ####[facility] [address] [place], [address] Neutrophils/100 WBC (Bld) 80.5 % High 47-70 [facility] Comment on above: Performed By: #### L 500.2500, L100.0100 ####[facility] [address] [place], [address] Nucleated RBC (Bld) [#/Vol] 0 10*3/uL Normal 0-5 [facility] Comment on above: Performed By: #### L 500.2500, L100.0100 ####[facility] [address] [place], [address] Platelet mean volume (Bld) [Entitic vol] 10.2 fL Normal 6.2-12.0 [facility] Comment on above: Performed By: #### L 500.2500, L100.0100 ####[facility] [address] [place], [address] Platelets (Bld) [#/Vol] 271 10*3/uL Normal 150-450 [facility] Comment on above: Performed By: #### L 500.2500, L100.0100 ####[facility] [address] [place], [address] RBC (Bld) [#/Vol] 5.24 10*6/uL Normal 4.2-5.4 [facility] Comment on above: Performed By: #### L 500.2500, L100.0100 ####[facility] [address] [place], [address] RDW SD 44.6 fl High 35.1-43.9 [facility] Comment on above: Performed By: #### L 500.2500, L100.0100 ####[facility] [address] [place], [address] WBC (Bld) [#/Vol] 14.1 10*3/uL High 4.4-11.0 [facility] Comment on above: Performed By: #### L 500.2500, L100.0100 ####[facility] [address] [place], [address] CTA Chest W/WO Contraston CTA Chest W/WO Contrast Normal [facility] Carbon dioxide, total [Moles /volume] in Central venous bloodOrdered By: Franco Inman on 12-04-2024 CO2 [Moles/Vol] 24.6 mmol/L 21.0-32.0 [facility] Chest PA and Lateralon 12-04 Chest PA and Lateral Normal [facility] Chloride assayOrdered By: Leo Inman on 12-04-2024 Chloride [Moles/Vol] 99 mmol/L 98-108 [facility] Determination of fraction of inspired oxygenOrdered By: Aleta Aguayo on 12-04-2024 Blood Gas Oxygen Percent 5.0 [facility] Emergency Department Summary on 12-04-2024 Emergency Department Summary Normal [facility] Eosinophil percentageOrdered By: Franco Inman on 12-04-2024 Eosinophils/100 WBC (Bld) 0.6 % 0-5 [facility] Erythrocyte distribution wid th ratioOrdered By: Franco Inman on 12-04-2024 Erythrocyte distribution width (RBC) [Ratio] 14.7 % High 11.6-14.6 [facility] Erythrocyte distribution wid th standard deviationOrdered By: Franco Inman on 12-04-2024 Erythrocyte distribution width (RBC) [Entitic vol] 44.6 fL High 35.1-43.9 [facility] Estimation of creatinine frankie aranceOrdered By: Franco Inman on 12-04-2024 Estimated Creatinine Clearance Calc 53.12 ml/min 50-250 [facility] GFR/1.73 sq M.predicted gregory g non-blacks MDRD (S/P/Bld) [Vol rate/Area]Ordered By: Franco Inman on 12-04-2024 Estimated GFR (MDRD) Non-Af Amer 71 >60 [facility] Comment on above: mL/min/1.73m2 CKD-EP I Creatinine Equation (2020) H AND P Exam - [facility] 12-04-2024 H&P Exam - Hospitalist Normal [facility] Hematocrit Auto (Bld) [Volum e fraction]Ordered By: Franco Inman on 12-04-2024 Hematocrit (Bld) [Volume fraction] 43.7 % 37-47 [facility] Hemoglobin measurementOrdere d By: Franco Inman on 12-04-2024 Hemoglobin (Bld) [Mass/Vol] 14.1 g/dL 12.0-15.0 [facility] Immature granulocytes/100 WB C Auto (Bld)Ordered By: Franco Inman on 12-04-2024 Immature granulocytes/100 WBC (Bld) 0.800 % 0.0-0.9 [facility] Comment on above: IG% - Immature Granu locytes (promyelocytes, myelocytes and metamyelocytes) > 1% indicates that a LEFT SHIFT is Present. Influenza virus A and B and SARS-CoV-2 (COVID-19) and Respiratory syncytial virus RNAOrdered By: Franco Inman on 12-04-2024 SARS-CoV-2 (COVID-19) RNA KANDY+probe Ql (Unsp spec) [facility] Lipaseon 12-04-2024 Lipase [Catalytic activity/Vol] 25 U/L Normal 13-75 [facility] Comment on above: Result Comment: Jenny capellan note:LIPASE revised reference range effective 23.New Lipase methodology. Expected to produce lower valuesthan the previous assay method.NEW Reference Range: 13 - 75 U/L Performed By: #### L 501.2450 ####[facility] [address] [place], [place], [address] Lipase measurementOrdered By : Franco Inman on 12-04-2024 Lipase [Catalytic activity/Vol] 25 U/L 13-75 [facility] Comment on above: Please note:LIPASE r evised reference range effective 23. New Lipase methodology. Expected to produce lower values than the previous assay method. NEW Reference Range: 13 - 75 U/L Lipase measurement 25 U/L 13-75 [facility] Lymphocytes Auto (Unsp spec) [#/Vol]Ordered By: Franco Inman on 12-04-2024 Lymphocytes (Bld) [#/Vol] 0.96 10*3/uL 0.83-4.51 [facility] Lymphocytes/100 WBC Auto (Un sp spec)Ordered By: Franco Inman on 12-04-2024 Lymphocytes/100 WBC (Bld) 6.8 % Low 19-41 [facility] M100.678on 12-04-2024 M100.678 Pending SARS-CoV-2 (COVID 19) Negative INFLUENZA A Negative INFLUENZA B Negative RSV PCR Negative Normal [facility] Comment on above: Performed By: #### M 100673 ####[facility] [address] [place], [address] MCV (mean corpuscular volume ) determinationOrdered By: Franco Inman on 12-04-2024 MCV (RBC) [Entitic vol] 83.4 fL 81-99 [facility] Mean corpuscular hemoglobin (MCH) determinationOrdered By: Franco Inman on 12-04-2024 MCH (RBC) [Entitic mass] 26.9 pg Low 27.0-32.0 [facility] Mean corpuscular hemoglobin concentration (MCHC) determinationOrdered By: Franco Inman on 12-04-2024 MCHC (RBC) [Mass/Vol] 32.3 g/dL 32-36 [facility] Mean platelet volume determi nationOrdered By: Fracno Inman on 12-04-2024 Platelet mean volume (Bld) [Entitic vol] 10.2 fL 6.2-12.0 [facility] Monocyte percentageOrdered B y: Franco Inman on 12-04-2024 Monocytes/100 WBC (Bld) 10.4 % High 0-10 [facility] Neutrophil percentageOrdered By: Franco Inman on 12-04-2024 Neutrophils/100 WBC (Bld) 80.5 % High 47-70 [facility] No Panel InformationOrdered By: Aleta Aguayo on 12-04-2024 Blood Gas Sample Site R Radial [facility] Blood Gas Specimen Type ART [facility] Blood Gas Vent Mode Not entered [facility] Oxygen Delivery Device Cannula [facility] Nucleated red blood cell per centageOrdered By: Franco Inman on 12-04-2024 Nucleated RBC/100 WBC (Bld) [Ratio] 0 % 0-5 [facility] Oxygen saturation measuremen tOrdered By: Aleta Aguayo on 12-04-2024 Blood Gas Oxygen Saturation 89 % Low 95-99 [facility] Partial pressure of carbon d ioxide measurementOrdered By: Aleta Aguayo on 12-04-2024 Arterial Blood Partial Pressure CO2 65.4 mmHg High 35-45 [facility] Partial pressure of oxygen m easurementOrdered By: Aleta Aguayo on 12-04-2024 Arterial Blood Partial Pressure O2 68 mmHG Low 75-100 [facility] Platelet countOrdered By: Leo Inman on 12-04-2024 Platelets (Bld) [#/Vol] 271 10*3/uL 150-450 [facility] Potassium (Unsp spec) [Mass/ Vol]Ordered By: Franco Inman on 12-04-2024 Potassium [Moles/Vol] 4.2 mmol/L 3.3-5.1 [facility] RBC Auto (Bld) [#/Vol]Ordere d By: Franco Inman on 12-04-2024 RBC (Bld) [#/Vol] 5.24 10*6/uL 4.2-5.4 [facility] Respiratory pathogens DNA an d RNA panel KANDY+probe (Resp)Ordered By: Aleta Aguayo on 12-04-2024 Respiratory Panel (PCR) [facility] Respiratory pathogens detect ion panel by molecular detection methodOrdered By: Aleta Aguayo on 12-04-2024 Respiratory pathogens DNA and RNA panel KANDY+probe (Resp) [facility] Serum creatinine measurement (mass/volume)Ordered By: Franco Inman on 12-04-2024 Creatinine [Mass/Vol] 0.92 mg/dL 0.70-1.20 [facility] Serum glucose measurement (m ass/volume)Ordered By: Franco Inman on 12-04-2024 Glucose [Mass/Vol] 118 mg/dL High 70-99 [facility] Serum or plasma calcium esthela urement (mass/volume)Ordered By: Franco Inman on 12-04-2024 Calcium [Mass/Vol] 9.2 mg/dL 7.6-11.0 [facility] Serum or plasma urea nitroge n measurement (mass/volume)Ordered By: Franco Inman on 12-04-2024 Urea nitrogen [Mass/Vol] 10 mg/dL 4-19 [facility] Sodium levelOrdered By: Franco Inman on 12-04-2024 Sodium [Moles/Vol] 137 mmol/L 133-145 [facility] Total carbon dioxide measure mentOrdered By: Aleta Aguayo on 12-04-2024 Blood Gas Total CO2 30 mmol/L [facility] White blood cell (WBC) count Ordered By: Franco Inman on 12-04-2024 WBC (Bld) [#/Vol] 14.1 10*3/uL High 4.4-11.0 [facility] pH (Unsp spec)Ordered By: Malinda lehman Olivier on 12-04-2024 Blood Gas pH 7.24 Low 7.35-7.45 [facility] ANES POSTPROC EVALon 025 ANES POSTPROC EVAL HNO ID: [id number] Author: EDUARD GALEANO MD Service: ? Author [...] Scheduled Providers: Jane Farrell MD; Adrian Laird APRN.HADOOP CONSULTANT; Eduard Galeano MD Responsible Provider: Eduard Galeano [...] December 01, 2024 TIME: 11:19 AM CSN: [id number] Normal [facility] ANES PRE-OPon 12-01-2024 ANES PRE-OP HNO ID: [id number] Author: EDUARD GALEANO MD Service: ? Author Type: Anesthesiologist Type: Anesthesia Preprocedure Evaluation Filed: 12/01/2024 10:04 Note Text: ANESTHESIOLOGY DAY OF SURGERY NOTE : 1965 Procedure Information Anesthesia Start Date/Time: 12/01/24 1002 Scheduled providers: Jane Farrell MD; Adrian Laird APRN.HADOOP CONSULTANT; Eduard Galeano MD Procedure: EGD - THERAPEUTIC, [...] and consent discussed: yes. Patient / Responsible [employer] Party agrees to proceed: yes Patient / [...] 0950 Pulse 78 12/01/24 0950 Resp 16 12/01/2450 Temp 36 ?C (96.8 ?F) 12/01/24949 SpO2 93 % 12/01/2450 Outpatient Medications as of 12/01/2024 Medication Sig [...] capsule by mouth at bedtime as needed. gkblfi-ddnkaxza-vlklzfg (CREON 24) 24,000-76,000 -120,000 unit delayed release [...] This conta (more content not included)... Normal [facility] 12-01-2024 CNPN Telephone (GASTPR) GRACIE BANUELOS ([id number]) 1965 F Date Time Provider Department 12/01/24 JANE FARRELL [facility] During your visit today, we recorded the [...] pancreatitis (HCC) [K86.1] Order(s):ERCP [GI18] Order #: [id number] FUTURE Prescriptions as of 12/01/2024 - pantoprazole [...] by mouth at bedtime as needed. - jzyozo-ifrmclcj-kuaycbf (CREON 24) 24,000-76,000 -120,000 unit delayed release [...] stress female [N39.3] 11/24/2014 HPV test positive [[id number]] 11/24/2014 Alcohol dependence in remission (HCC) [F10.21] [...] Status:Closed by JANE FARRELL on 12/01/24 Normal [facility] EGD Study observation Narrat iveon 12-01-2024 [facility] Radiology Study observation (narrative) [facility] NURSING PROGon 12-01-2024 NURSING PROG HNO ID: [id number] Author: RESHMA TELLES RN Service: Nursing Author [...] None Electronically Signed By: Reshma Telles RN Normal [facility] NURSING PROG HNO ID: [id number] Author: KATHIE DORANTES RN Service: ? Author [...] By: Kathie Dorantes RN In Department: GASTROENTEROLOGY Normal [facility] Matteo 11-25-2024 CNPN Telephone (GAPRA3) GRACIE BANUELOS ([id number]) 1965 F Date Time Provider Department 11/25/24 RAISA JIMENEZ GAPRA3 During your visit today, we recorded the [...] by mouth at bedtime as needed. - nhizjr-cvsbdien-ynqnbdi (CREON 24) 24,000-76,000 -120,000 unit delayed release [...] stress female [N39.3] 11/24/2014 HPV test positive [[id number]] 11/24/2014 Alcohol dependence in remission (HCC) [F10.21] [...] Encounter Status:Closed by [facility] ([id number]) 1965 F Date Time Provider Department 11/25/24 JANE FARRELL GASTMA During your visit today, we recorded the [...] you do prescribe or if you won't [phone] (does not use MyChart) Juan Abbott LPN [...] by mouth at bedtime as needed. - pocllr-mnofmafr-mbmecov (CREON 24) 24,000-76,000 -120,000 unit delayed release [...] stress female [N39.3] 11/24/2014 HPV test positive [[id number]] 11/24/2014 Alcohol dependence in remission (HCC) [F10.21] 07/10/2015 11/02/2018 Pulmonary emphysema (HCC) [J43.9] 11/27/2015 Irritable bowel syndrome with both constipation*08/27/2017 Alcohol use disorder, moderate, dependence (HCC*08/27/2017 DDD (degenerative disc disease), cervical [M50.*09/03/2018 Severe protein-calorie malnutrition (HCC) [E43] 01/07/2019 12/26/2022 Chronic recurrent pancreatitis (HCC) [K86.1] 01/07/2019 Reactive depression [F32.9] 04/28/2019 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 chronic pancreatitis (HCC) [K86*07/26/2019 Mo (more content not included)... Normal [facility] NURSING PROGon 11-24-2024 NURSING PROG HNO ID: [id number] Author: CARROLL LEBLANC RN Service: ? Author Type: Registered Nurse Type: Nursing Progress Note Filed: 11/24/2024 16:10 Note Text: Attempted to reach the patient at the contact number that they provided [phone] (home) . Unable to speak with patient so without identifying the patient the following information was left on their voice mail: Date of procedure, location and report time Prep instructions A message was left informing the patient/patient customer account representative they must have a responsible adult [...] Number to call with questions or concerns [phone] Number to call to cancel their procedure [phone] Carroll Leblanc RN [facility] IGORMalou 11-08-2024 CNPN Telephone (INTMWS) PEARLGRACIE ([id number]) 1965 F Date Time Provider Department 11/08/24 MISBAH ELKINS INTMWS During your visit today, we [...] please ask her to use it. Regards, Larry Byers MD, MA 11/09/2024 11:41 AM Signed Patient notified [...] by mouth at bedtime as needed. - jnsord-lmxjhrvf-lzktejn (CREON 24) 24,000-76,000 -120,000 unit delayed release [...] stress female [N39.3] 11/24/2014 HPV test positive [[id number]] 11/24/2014 Alcohol dependence in remission (HCC) [F10.21] 07/10/2015 11/02/2018 Pulmonary emphysema (HCC) [J43.9] 11/27/2015 Irritable bowel syndrome with both constipation*08/27/2017 Alcohol use disorder, moderate, dependence (HCC*08/27/2017 DDD (degenerative disc disease), cervical [M50.*09/03/2018 Severe protein-calorie malnutrition (HCC) [E43] 01/07/2019 12/26/2022 Chronic recurrent pancreatitis (HCC) [K86.1] 01/07/2019 Reactive depression [F32.9] 04/28/2019 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 chronic pancreatitis (HCC) [K86*07/26 (more content not included)... Normal [facility] CNOVon 11-07-2024 CNOV Office Visit (INTMWS ) GRACIE BANUELOS ([id number]) 1965 F Date Time Provider Department 11/07/24 2:00 PM MISBAH ELKINS INTMikeWS During your visit today, we recorded the following information about you: Temperature Pulse Respiration Blood pressure 97.3 degrees 81/minute 20/minute 83/53 Misbah Elkins MD 11/07/2024 6:00 PM Signed HPI Gracie is a 59-year-old woman with a past medical history of hypertension, hyperlipidemia, alcohol use disorder with moderate dependence currently only using alcohol twice a month, alcohol hepatitis and pancreatitis, tobacco abuse disorder, pulmonary emphysema, lumbar disc disease with radiculopathy, anxiety and depression. She was admitted to [facility] from 01/01 to 01/04 for [...] as needed (more content not included)... Normal [facility] XR CHEST 2V FRONTAL/LATon XR CHEST [...] tissues: Unremarkable. IMPRESSION: No acute radiographic abnormality. Specialist Managers: BABATUNDE Transcribe Date/Time: Nov 07 2024 4:49P Dictated by : EDUARDO MATTHEWS MD This examination was interpreted and the report reviewed and electronically signed by: EDUARDO MATTHEWS MD on Nov 07 2024 4:49PM EST [id number] Normal [facility] XR Chest PA and Lateralon IMPRESSION: No acute radiographic abnormality. Specialist Managers: BABATUNDE Transcribe Date/Time: Nov 07 2024 4:49P [...] soft tissues: Unremarkable. DIVISION OF RADIOLOGY Provider, Jacques Portillo [facility] - 11/07/2024 * * *Final Report* * [...] Unremarkable. IMPRESSION IMPRESSION: No acute radiographic abnormality. Specialist Managers: PSCB Transcribe Date/Time: Nov 07 2024 4:49P Dictated by : EDUARDO MATTHEWS MD This examination was interpreted and the report reviewed and electronically signed by: EDUARDO MATTHEWS MD on Nov 07 2024 4:49PM EST [facility] Radiology Study observation (narrative) Minoo Pierce XR Chest PA and LateralOrder ed By: Cc Provider on 11-07-2024 [facility] CNPMalou 08-31-2024 CNPN Telephone (FAMPWS) GRACIE BANUELOS ([id number]) 1965 F Date Time Provider Department 08/31/24 [...] seen a GI doctor. SARWAT Dias Joy, APRN.IGOR 09/02/2024 7:16 AM Signed Our records show she was seeing Dr. Odonnell and last seen in 2021 with a recommendation of a follow up in 6 months. I am reconsulting her. Thank you Soila Easton APRN.RN FACULTY Allergies As of Date: 08/31/2024 Noted Allergy Reaction BACTRIM (SULFAMETHOXAZOLE-TRIME TH*11/28/2022 4 - Hives HYDROCODONE 08/02/2020 9 - Itching PENICILLINS 07/07/2006 14 - Other: See Comments Comments: hives VALIUM (DIAZEPAM) 11/02/2013 14 - Other: See Comments Comments: cross reaction with alcohol addiction Date Reviewed: 08/22/2024 Reviewed by: Nadeen Bobby, RT(R) - Fully Assessed Reason for Visit: Results [95] Primary Visit Diagnosis:Chronic recurrent pancreatitis (HCC) [K86.1] Other Visit Diagnosis:Alcohol-induc ed chronic pancreatitis (HCC) [K86.0] Order(s):CONSULT TO GASTROENTEROLOGY [9010] Order #: [id number]: 1 FUTURE Prescriptions as of 02/06/2025 - [...] stress female [N39.3] 11/24/2014 HPV test positive [[id number]] 11/24/2014 Alcohol dependence in remission (HCC) [F10.21] 07/10/2015 11/02/2018 Pulmonary emphysema (HCC) [J43.9] 11/27/2015 Irritable bowel syndrome with both constipation*08/27/2017 Alcohol use di (more content not included)... Normal [facility] CT ABD/PEL W IVCONon 024 CT ABD/PEL W IVCON * * *Final Report* * * DATE OF EXAM: Aug 23 2024 9:53AM [facility] 0530 - CT ABD/PEL W IVCON / [...] finding of the abdomen or pelvis seen. Specialist Managers: [facility] Transcribe Date/Time: Aug 25 2024 10:38P Dictated by : YIN HERNANDEZ MD This examination was interpreted and the report reviewed and electronically signed by: YIN HERNANDEZ MD on Aug 25 2024 10:47PM EST [id number] [facility] Telephone (INTMWS) GRACIE BANUELOS ([id number]) 1965 F [place] Date Time Provider Department 08/19/24 MISBAH ELKINS During your visit today, we recorded the following information about you: Maribeth Owen LPN 08/19/2024 11:37 AM Signed Pt called in to reports she is still getting the Lexapro in her packs. I called [facility] and they will pick her packs [...] 1 tablet by mouth once daily. - gzyarm-yuasfwph-lxxipgh (CREON 24) 24,000-76,000 -120,000 unit delayed release [...] stress female [N39.3] 11/24/2014 HPV test positive [[id number]] 11/24/2014 Alcohol dependence in remission (HCC) [F10.21] [...] Encounter Status:Closed by MARIBETH OWEN on 08/19/24 [facility] Mikel 08-15-2024 CNOV Office Visit (INTMWS ) GRACIE BANUELOS ([id number]) 1965 F [place] Date Time Provider Department 08/15/24 11:40 AM OLDER, SOILA INTMWS During your visit today, we recorded the following information about you: Pulse Respiration Blood pressure Weight 80/minute 16/minute 112/78 64.4 kg Older, EDWARD RodriguezN.IGOR 08/15/2024 12:40 PM Signed CC: Patient presents [...] shortness of breath all improving. Goes to [facility] with next routine exam in September. [...] Take 1 tablet by mouth once daily. reklgi-hbgcmyoy-nhvybff (CREON 24) 24,000-76,000 -120,000 unit delayed release [...] daily. panto (more content not included)... Normal [facility] Amylase SerPl-cCncon 024 Amylase [Catalytic activity/Vol] 104 U/L Normal 30-104 [facility] Comment on above: Order Comment: Speci men Type: BLOOD SPECIMENOrdering Facility: [facility] Address: [address] [place] [address] Performed By: #### 1 798-8, 04055-0, 3040-3 ####[facility] LABCLIA [id number] [place] [address] [place] Comprehensive metabolic 2000 panelon 08-12-2024 Albumin [Mass/Vol] 4.4 g/dL Normal 3.9-4.9 [facility] Comment on above: Order Comment: Speci men Type: BLOOD SPECIMENOrdering Facility: [facility] Address: [address] [place] [address] Performed By: #### 1 798-8, 77619-3, 3040-3 ####[facility] LABCLIA [id number] [place] [address] [place] ALP [Catalytic activity/Vol] 142 U/L High 34-123 [facility] Comment on above: Order Comment: Speci men Type: BLOOD SPECIMENOrdering Facility: [facility] Address: [address] [place] [address] Performed By: #### 1 798-8, 14715-1, 3040-3 ####[facility] LABCLIA [id number] [place] [id number] [place] ALT [Catalytic activity/Vol] 12 U/L Normal 7-38 [facility] Comment on above: Order Comment: Speci men Type: BLOOD SPECIMENOrdering Facility: [facility] Address: [address] [place] [address] Performed By: #### 1 798-8, 79734-5, 3040-3 ####[facility] LABCLIA [id number] [place] [address] [place] Anion gap [Moles/Vol] 12 mmol/L Normal 8-15 [facility] Comment on above: Order Comment: Speci men Type: BLOOD SPECIMENOrdering Facility: [facility] Address: [address] [place] [address] Performed By: #### 1 798-8, 85478-4, 3040-3 ####[facility] LABCLIA [id number] [place] [address] [place] AST [Catalytic activity/Vol] 15 U/L Normal 13-35 [facility] Comment on above: Order Comment: Speci men Type: BLOOD SPECIMENOrdering Facility: [facility] Address: [address] [place] [address] Performed By: #### 1 798-8, 88180-6, 3040-3 ####[facility] LABCLIA [id number] [place] [address] [place] Bilirubin [Mass/Vol] 0.2 mg/dL Normal 0.2-1.[address] [facility] Comment on above: Order Comment: Speci men Type: BLOOD SPECIMENOrdering Facility: [facility] Address: [address] [place] [address] Performed By: #### 1 798-8, 64915-3, 3040-3 ####[facility] LABCLIA [id number] [place] [address] [place] Calcium [Mass/Vol] 9.6 mg/dL Normal 8.5-10.2 [facility] Comment on above: Order Comment: Speci men Type: BLOOD SPECIMENOrdering Facility: [facility] Address: [address] [place] [address] Performed By: #### 1 798-8, 27606-6, 3040-3 ####[facility] LABCLIA [id number] [place] [address] [place] Chloride [Moles/Vol] 97 mmol/L Low 98-[address] [facility] Comment on above: Order Comment: Speci men Type: BLOOD SPECIMENOrdering Facility: [facility] Address: [address] [place] [address] Performed By: #### 1 798-8, 06357-3, 3040-3 ####[facility] LABCLIA [id number] [place] [address] [place] CO2 [Moles/Vol] 26 mmol/L Normal 22-30 [facility] Comment on above: Order Comment: Speci men Type: BLOOD SPECIMENOrdering Facility: [facility] Address: [address] [place] [address] Performed By: #### 1 798-8, 24973-7, 3040-3 ####[facility] LABCLIA [id number] [place] [address] [place] Creatinine [Mass/Vol] 0.82 mg/dL Normal 0.58-0.96 [facility] Comment on above: Order Comment: Speci men Type: BLOOD SPECIMENOrdering Facility: [facility] Address: [address] [place] [address] Performed By: #### 1 798-8, 50735-9, 3040-3 ####[facility] LABCLIA [id number] [place] [address] [place] Creatinine and Glomerular filtration rate.predicted panel (S/P/Bld) 81 mL/min/1.73m??? Normal >=60 [facility] Comment on above: Order Comment: Speci men Type: BLOOD SPECIMENOrdering Facility: [facility] Address: [address] [place] [address] Result Comment: Pavan mated Glomerular Filtration Rate [...] actual GFR. Performed By: #### 1 798-8, 28960-7, 3039-3 ####[facility] LABCLIA [id number] [address] [address] [place] Glucose [Mass/Vol] 101 mg/dL High 74-99 [facility] Comment on above: Order Comment: Speci men Type: BLOOD SPECIMENOrdering Facility: [facility] Address: [address] [place] [address] Result Comment: The [place] Diabetes Association (ADA) provides guidance for cutoff [...] Standards of Medical Care in Diabetes 2016, [place] [employer] Association. Diabetes Care. 2016.39(Suppl 1). Performed By: #### 1 798-8, 39366-8, 3 ####[facility] LABCLIA [id number] [address] [address] [place] Potassium [Moles/Vol] 4.6 mmol/L Normal 3.7-5.1 [facility] Comment on above: Order Comment: Speci men Type: BLOOD SPECIMENOrdering Facility: [facility] Address: [address] [place] [address] Performed By: #### 1 798-8, 90490-6, 3039-3 ####[facility] LABCLIA [id number] [address] [address] [place] Protein [Mass/Vol] 7.7 g/dL Normal 6.3-8.0 [facility] Comment on above: Order Comment: Speci men Type: BLOOD SPECIMENOrdering Facility: [facility] Address: [address] [place] [address] Performed By: #### 1 798-8, 36316-1, 3039-3 ####[facility] LABCLIA [id number] [address] [address] [place] Sodium [Moles/Vol] 135 mmol/L Low 136-144 [facility] Comment on above: Order Comment: Speci men Type: BLOOD SPECIMENOrdering Facility: [facility] Address: [address] [place] [address] Performed By: #### 1 798-8, 11285-7, 3039-3 ####[facility] LABIA [id number] [place] [address] [place] Urea nitrogen [Mass/Vol] 15 mg/dL Normal 7-21 [facility] Comment on above: Order Comment: Speci men Type: BLOOD SPECIMENOrdering Facility: [facility] Address: [address] [place] [address] Performed By: #### 1 798-8, 31160-3, 3039-3 ####[facility] LABIA [id number] [place] [address] [place] HbA1c (Bld)on 08-12-2024 Average glucose Estimated from glycated hemoglobin (Bld) [Mass/Vol] 131 mg/dL Normal [facility] Comment on above: Order Comment: Speci men Type: BLOOD SPECIMENOrdering Facility: [facility] Address: [address] [place] [address] Result Comment: eAG: (Estimated average glucose) is a calculated value from HgbA1c and is customer account representative of the average blood glucose level in the last 2-3 month period. Performed By: #### 5 5454-3 ####[facility] LABIA [id number] [place] [address] [place] HbA1c (Bld) [Mass fraction] 6.2 % High 4.3-5.6 [facility] Comment on above: Order Comment: Reggie fajardo Type: BLOOD SPECIMENOrdering Facility: [facility] Address: [address] [place] [address] Result Comment: [place]ay[place] ican Diabetes Association guidelines indicate that patients with HgbA1c in the range 5.7-6.4% are at increased risk for development of diabetes, and intervention by lifestyle modification may be beneficial. HgbA1c greater or equal to 6.5% is considered diagnostic of diabetes. Performed By: #### 5 5454-3 ####[facility] LABCLIA [id number] [address] [place] Lipase SerPl-[facility] 08-12-20 24 Lipase [Catalytic activity/Vol] 87 U/L High 16-61 [facility] Comment on above: Order Comment: Reggie tana Type: BLOOD SPECIMENOrdering Facility: [facility] Address: [address] [place], [place] [address] [address] Performed By: #### 1 798-8, 28232-7, 3040-3 ####[facility] LABCLIA [id number] [address] [place] Matteo 08-11-2024 CNPN Telephone (INTMWS) GRACIE BANUELOS ([id number]) 1965 [address] [employer] Date Time Provider Department 08/11/24 MISBAH ELKINS INTWS During your visit today, we recorded the following information about you: Maribeth Owen LPN 08/11/2024 3:21 PM Signed ----- Message from Soila Easton APRN.RN FACULTY sent at 08/11/2024 3:16 PM EST ----- [...] 1 tablet by mouth once daily. - pwbduy-ahwhvveq-khpijkt (CREON 24) 24,000-76,000 -120,000 unit delayed release [...] stress female [N39.3] 11/24/2014 HPV test positive [[id number]] 11/24/2014 Alcohol dependence in remission (HCC) [F10.21] [...] colonic polyps (more content not included)... Normal [facility] CNOVon 08-10-2024 CNOV Office Visit (INTMWS ) GRACIE BANUELOS ([id number]) 1965 [employer] Date Time Provider Department 08/10/24 5:00 PM SOILA EASTON INTMWS During your visit today, we recorded [...] Stage 3 severe COPD by GOLD classification ([facility]) 2018 Tobacco use greater than 30 years [...] Take 1 tablet by mouth once daily. ibfduw-hvovmtnn-yfslbhr (CREON 24) 24,000-76,000 -120,000 unit delayed release [...] by m (more content not included)... Normal [facility] Matteo 08-10-2024 ALE Telephone (INTWS) PEARLGRACIE S ([id number]) 1965 [employer] Date Time Provider Department 08/10/24 MISBAH ELKINS During your visit today, we recorded the following information about you: Caroline Miller RN 08/10/2024 1:14 PM Signed ----- Message from Misbah Elkins MD sent at 08/10/2024 12:44 PM EST ----- Gracie neff while count always tends to be high, We will evaluate that in the next visit. Regards, Caroline Bee MD, RN 08/10/2024 1:29 PM Signed Called and spoke [...] 1 tablet by mouth once daily. - ylokyd-kzhzgyrq-vpzrchi (CREON 24) 24,000-76,000 -120,000 unit delayed release [...] stress female [N39.3] 11/24/2014 HPV test positive [[id number]] 11/24/2014 Alcohol dependence in remission (HCC) [F10.21] 07/10/2015 11/02/2018 Pulmonary emphysema (HCC) [J43.9] 11/27/2015 Irritable bowel syndrome with both constipation*08/27/2017 Alcohol use disorder, moderate, dependence (HCC*08/27/2017 DDD (de (more content not included)... Normal [facility] UA DIP, URINE (POC)on 2023 BILIRUBIN UA (POCT) Negative Negative [facility] CLARITY UA (POCT) Clear [facility] COLOR UA (POCT) Yellow [facility] GLUCOSE UA (POCT) Negative Negative mg/dL [facility] Hemoglobin Ql (U) Negative Negative [facility] KETONE UA (POCT) Negative Negative mg/dL [facility] LEUKOCYTES UA (POCT) Negative Negative [facility] NITRITE UA (POCT) Negative Negative [facility] PH UA (POCT) 6.0 4.5 - 8.0 [facility] Protein Ql (U) Negative Negative mg/dL [facility] SPECIFIC GRAVITY UA (POCT) 1.010 1.005 - 1.030 [facility] UROBILINOGEN UA (POCT) 0.2 Regina l E.U./dL [facility] Location:[facility], [address] [place] [address], [place], [place], [id number] [place] [address] POINT OF CARE [facility] XR CHEST 2V FRONTAL/LATon XR CHEST [...] tissues: Unremarkable. IMPRESSION: No acute radiographic abnormality. Specialist Managers: PSCTova Transcribe Date/Time: Aug 11 2024 2:55P Dictated by : JEAN-CLAUDE MANRIQUEZ MD This examination was interpreted and the report reviewed and electronically signed by: JEAN-CLAUDE MANRIQUEZ MD on Aug 11 2024 2:56PM EST [id number] Normal [facility] CBC W Auto Differential pane l (Bld)on 08-05-2024 Basophils (Bld) [#/Vol] 0.16 10*3/uL High <0.11 [facility] Comment on above: Order Comment: Speci men Type: BLOOD SPECIMENOrdering Facility: [facility] Address: [address] [place] [address] Performed By: #### 5 7021-8 ####[facility] LABCLIA [id number] [place] [address] [place] Basophils/100 WBC (Bld) 1.1 % Normal [facility] Comment on above: Order Comment: Speci men Type: BLOOD SPECIMENOrdering Facility: [facility] Address: [address] [place] [address] Performed By: #### 5 7021-8 ####[facility] LABCLIA [id number] [place] [address] [place] Differential cell count method Nom (Bld) Auto Normal [facility] Comment on above: Order Comment: Speci men Type: BLOOD SPECIMENOrdering Facility: [facility] Address: [address] [place] [address] Performed By: #### 5 7021-8 ####[facility] LABCLIA [id number] [place] [address] [place] Eosinophils (Bld) [#/Vol] 0.39 10*3/uL Normal <0.46 [facility] Comment on above: Order Comment: Speci men Type: BLOOD SPECIMENOrdering Facility: [facility] Address: [address] [place] [address] Performed By: #### 5 7021-8 ####[facility] LABCLIA [id number] [place] [address] [place] Eosinophils/100 WBC (Bld) 2.7 % Normal [facility] Comment on above: Order Comment: Speci men Type: BLOOD SPECIMENOrdering Facility: [facility] Address: [address] [place] [address] Performed By: #### 5 7021-8 ####[facility] LABIA [id number] [place] [address] [place] Erythrocyte distribution width (RBC) [Ratio] 15.7 % High 11.5-15.0 [facility] Comment on above: Order Comment: Speci men Type: BLOOD SPECIMENOrdering Facility: [facility] Address: [address] [place] [address] Performed By: #### 5 7021-8 ####[facility] LABCLIA [id number] [place] [address] [place] Hematocrit (Bld) [Volume fraction] 42.5 % Normal 36.0-46.0 [facility] Comment on above: Order Comment: Speci men Type: BLOOD SPECIMENOrdering Facility: [facility] Address: [address] [place] [address] Performed By: #### 5 7021-8 ####[facility] LABCLIA [id number] [place] [address] [place] Hemoglobin (Bld) [Mass/Vol] 13.6 g/dL Normal 11.5-15.5 [facility] Comment on above: Order Comment: Speci men Type: BLOOD SPECIMENOrdering Facility: [facility] Address: [address] [place] [address] Performed By: #### 5 7021-8 ####[facility] LABCLIA [id number] [place] [address] [place] Immature granulocytes (Bld) [#/Vol] 0.12 10*3/uL High <0.10 [facility] Comment on above: Order Comment: Speci men Type: BLOOD SPECIMENOrdering Facility: [facility] Address: [address] [place] [address] Performed By: #### 5 7021-8 ####[facility] LABCLIA [id number] [place] [address] [place] Immature granulocytes/100 WBC (Bld) 0.8 % Normal [facility] Comment on above: Order Comment: Speci men Type: BLOOD SPECIMENOrdering Facility: [facility] Address: [address] [place] [address] Performed By: #### 5 7021-8 ####[facility] LABIA [id number] [place] [address] [place] Lymphocytes (Bld) [#/Vol] 3.77 10*3/uL Normal 1.00-4.00 [facility] Comment on above: Order Comment: Speci men Type: BLOOD SPECIMENOrdering Facility: [facility] Address: [address] [place] [address] Performed By: #### 5 7021-8 ####[facility] LABIA [id number] [place] [address] [place] Lymphocytes/100 WBC (Bld) 26.5 % Normal [facility] Comment on above: Order Comment: Speci men Type: BLOOD SPECIMENOrdering Facility: [facility] Address: [address] [place] [address] Performed By: #### 5 7021-8 ####[facility] LABIA [id number] [place] [address] [place] MCH (RBC) [Entitic mass] 26.8 pg Normal 26.0-34.0 [facility] Comment on above: Order Comment: Speci men Type: BLOOD SPECIMENOrdering Facility: [facility] Address: [address] [place] [address] Performed By: #### 5 7021-8 ####[facility] LABIA [id number] [place] [address] [place] MCHC (RBC) [Mass/Vol] 32.0 g/dL Normal 30.5-36.0 [facility] Comment on above: Order Comment: Speci men Type: BLOOD SPECIMENOrdering Facility: [facility] Address: [address] [place] [address] Performed By: #### 5 7021-8 ####[facility] LABIA [id number] [place] [address] [place] MCV (RBC) [Entitic vol] 83.8 fL Normal 80.0-100.0 [facility] Comment on above: Order Comment: Speci men Type: BLOOD SPECIMENOrdering Facility: [facility] Address: [address] [place] [address] Performed By: #### 5 7021-8 ####[facility] LABIA [id number] [address] [id number] [address] [place] Monocytes (Bld) [#/Vol] 1.27 10*3/uL High <0.87 [facility] Comment on above: Order Comment: Speci men Type: BLOOD SPECIMENOrdering Facility: [facility] Address: [address] [place] [address] Performed By: #### 5 7021-8 ####[facility] LABCLIA [id number] [place] [address] [place] Monocytes/100 WBC (Bld) 8.9 % Normal [facility] Comment on above: Order Comment: Speci men Type: BLOOD SPECIMENOrdering Facility: [facility] Address: [address] [place] [address] Performed By: #### 5 7021-8 ####[facility] LABCLIA [id number] [place] [address] [place] Neutrophils (Bld) [#/Vol] 8.50 10*3/uL High 1.45-7.50 [facility] Comment on above: Order Comment: Speci men Type: BLOOD SPECIMENOrdering Facility: [facility] Address: [address] [place] [address] Performed By: #### 5 7021-8 ####[facility] LABCLIA [id number] [place] [address] [place] Neutrophils/100 WBC (Bld) 60.0 % Normal [facility] Comment on above: Order Comment: Speci men Type: BLOOD SPECIMENOrdering Facility: [facility] Address: [address] [place] [address] Performed By: #### 5 7021-8 ####[facility] LABCLIA [id number] [place] [address] [place] Nucleated RBC (Bld) [#/Vol] 10*3/uL Normal <0.01 [facility] Comment on above: Order Comment: Speci men Type: BLOOD SPECIMENOrdering Facility: [facility] Address: [address] [place] [address] Performed By: #### 5 7021-8 ####[facility] LABCLIA [id number] [place] [address] [place] Nucleated RBC/100 WBC (Bld) [Ratio] 0.0 /100 WBC Normal [facility] Comment on above: Order Comment: Speci men Type: BLOOD SPECIMENOrdering Facility: [facility] Address: [address] [place] [address] Performed By: #### 5 7021-8 ####[facility] LABIA [id number] [place] [address] [place] Platelet mean volume (Bld) [Entitic vol] 10.5 fL Normal 9.0-12.7 [facility] Comment on above: Order Comment: Speci men Type: BLOOD SPECIMENOrdering Facility: [facility] Address: [address] [place] [address] Performed By: #### 5 7021-8 ####[facility] LABIA [id number] [place] [address] [place] Platelets (Bld) [#/Vol] 340 10*3/uL Normal 150-400 [facility] Comment on above: Order Comment: Speci men Type: BLOOD SPECIMENOrdering Facility: [facility] Address: [address] [place] [address] Performed By: #### 5 7021-8 ####[facility] LABCLIA [id number] [place] [address] [place] RBC (Bld) [#/Vol] 5.07 10*6/uL Normal 3.90-5.20 [facility] Comment on above: Order Comment: Speci men Type: BLOOD SPECIMENOrdering Facility: [facility] Address: [address] [place] [address] Performed By: #### 5 7021-8 ####[facility] LABCLIA [id number] [place] [id number] [place] WBC (Bld) [#/Vol] 14.21 10*3/uL High 3.70-11.00 [facility] Comment on above: Order Comment: Speci men Type: BLOOD SPECIMENOrdering Facility: [facility] Address: [address] [place] [address] Performed By: #### 5 7021-8 ####[facility] LABCLIA [id number] [place] [id number] [place] CNOVon 08-05-2024 CNOV Office Visit (INTMWS ) GRACIE BANUELOS S ([id number]) 1965 [address] [employer] Date Time Provider Department 08/05/24 3:40 PM MISBAH ELKINS INTMWS During your visit today, we recorded the following information about you: Pulse Blood pressure Weight 91/minute 118/72 65 kg Misbah Elkins MD 08/05/2024 5:23 PM Signed HPI Gracie is a 59-year-old woman with a past medical history of hypertension, hyperlipidemia, alcohol use disorder with moderate dependence currently only using alcohol twice a month, alcohol hepatitis and pancreatitis, tobacco abuse disorder, pulmonary emphysema, lumbar disc disease with radiculopathy, anxiety and depression. She was admitted to [facility] from 01/01 to 01/04 for [...] times and is only getting Remeron from [facility]. She says she has panic and [...] to infectious organism 2017 Severe protein-calorie malnutrition ([facility]) 01/07/2019 Stage 3 severe COPD by GOLD classification ([facility]) 2018 Tobacco use greater than 30 years Unspecified hemorrhoids without mention of complication Urine, incontinence, stress female 11/24/2014 PAST SURGICAL HISTORY Procedure Laterality Date APPENDECTOMY at age 14 COLONOSCOPY 04/15/[address], [address] Paul Perez. COLONOSCOPY 01/23/2015 2-Tubular adenomas. D (more content not included)... Normal [facility] CNCOon 07-13-2024 CNCO Letter Text Normal [facility] GRAC[facility] BANUELOS ([id number]) 1965 [address] [employer] Date Time Provider Department 06/21/24 MISBAH ELKINS INTWS During your visit today, we [...] 1 tablet by mouth once daily. - xcrjwa-irquikre-nwkjfgw (CREON 24) 24,000-76,000 -120,000 unit delayed release [...] stress female [N39.3] 11/24/2014 HPV test positive [[id number]] 11/24/2014 Alcohol dependence in remission (HCC) [F10.21] [...] Status:Closed by LARRY HASTINGS on 06/21/24 Normal [facility] Emergency Department Summary on 06-02-2024 Emergency Department Summary Normal [facility] Venous Duplex US, Unilateral on 06-02-2024 Venous Duplex US, Unilateral Normal [facility] CNOVon 05-18-2024 CNOV Office Visit (INTMWS ) GRACIE BANUELOS ([id number]) 1965 F [facility]* Date Time Provider Department 05/18/24 4:00 PM MISBAH ELKINS INTMWS During your visit today, we recorded the following information about you: Pulse Respiration Blood pressure Weight 76/minute 16/minute 128/72 60.3 kg Misbah Elkins MD 05/18/2024 5:57 PM Signed HPI Gracie is a 59-year-old woman with a past medical history of hypertension, hyperlipidemia, alcohol use disorder with moderate dependence currently only using alcohol twice a month, alcohol hepatitis and pancreatitis, tobacco abuse disorder, pulmonary emphysema, lumbar disc disease with radiculopathy, anxiety and depression. She was admitted to [facility] from 01/01 to 01/04 for [...] (HCC) 05/25/2012: COPD (chronic obstructive pulmonary disease) (HCC) 09/03/2018: DDD (degenerative disc disease), cervical No [...] Comment: 1986: TUBAL LIGATION HX ALLERGIES Bactrim [Sulfamethoxazole-Trime thoprim], Hydrocodone, Penicillins, and Valium [Di (more content not included)... Normal [facility] Pulmonary Visit Reporton Pulmonary Visit Report Normal [facility] XR Chest PA and Lateralon IMPRESSION: Bibasilar pulmonary infiltrates versus atelectasis. Specialist Managers: BABATUNDE Transcribe Date/Time: Jan 27 2024 4:18P Dictated by : CHELA GAMING MD This examination was interpreted and the report reviewed and electronically signed by: CHELA GAMING MD on Jan 27 2024 4:20PM [facility] DIVISION OF RADIOLOGY * * *Final Report* [...] shows degenerative changes. DIVISION OF RADIOLOGY Provider, [facility] - 01/27/2024 * * *Final [...] IMPRESSION IMPRESSION: Bibasilar pulmonary infiltrates versus atelectasis. Specialist Managers: BABATUNDE Transcribe Date/Time: Jan 27 2024 4:18P Dictated by : CHELA GAMING MD This examination was interpreted and the report reviewed and electronically signed by: CHELA GAMING MD on Jan 27 2024 4:20PM [facility] XR Chest PA and LateralOrder ed By: Ccf Provider on 01-27-2024 [facility] XR Chest PA and Lateralon Radiology Study observation (narrative) [facility] Absolute lymphocyte countOrd ered By: Bert Greenwood on 01-05-2024 Lymphocytes Auto (Unsp spec) [#/Vol] 3.82 10*3/uL 0.83-4.51 [facility] Basophil percentageOrdered B y: Bert Greenwood on 01-05-2024 Basophil percentage Not Reportable [facility] Chloride [Moles/Vol] 99 mmol/L 98-107 [facility] Glucose [Mass/Vol] 122 mg/dL 74-106 [facility] Comment on above: Fasting Glucose resu lt from 100 to 125 mg/dL suggests IMPAIRED HOMEOSTASIS per A.D.A. criteria. Hemoglobin (Bld) [Mass/Vol] 13.1 g/dL 12.0-15.0 [facility] Neutrophils (Bld) [#/Vol] 24.7 10*3/uL 2.0-7.7 [facility] Potassium [Moles/Vol] 5.0 mmol/L 3.5-5.1 [facility] Sodium [Moles/Vol] 132 mmol/L 136-145 [facility] WBC (Bld) [#/Vol] 29.4 10*3/uL 4.4-11.0 [facility] Blood band neutrophil count as percentage of total leukocytesOrdered By: Bert Greenwood on 01-05-2024 Band form neutrophils/100 WBC (Bld) 3 % 0-5 [facility] Blood lymphocytes/100 leukoc ytesOrdered By: Bert Greenwood on 01-05-2024 Lymphocytes/100 WBC (Bld) 13 % 19-41 [facility] Blood monocytes/100 leukocyt esOrdered By: Bert Greenwood on 01-05-2024 Monocytes/100 WBC (Bld) 2 % 0-10 [facility] Blood platelet adequacy dete ction by light microscopyOrdered By: Bert Greenwood on 01-05-2024 Platelets LM Ql (Bld) MOD INC ADEQ [facility] Blood segmented neutrophils/ 100 leukocytesOrdered By: Bert Greenwood on 01-05-2024 Segmented neutrophils/100 WBC (Bld) 81 % 47-70 [facility] Determination of erythrocyte mean corpuscular volume (MCV)Ordered By: Bert Greenwood on 01-05-2024 MCV (RBC) [Entitic vol] 83.2 fL 81-99 [facility] Erythrocyte distribution wid th ratioOrdered By: Bert Greenwood on 01-05-2024 Erythrocyte distribution width (RBC) [Ratio] 16.0 % 11.6-14.6 [facility] Erythrocyte distribution wid th standard deviationOrdered By: Bert Greenwood on 01-05-2024 Erythrocyte distribution width (RBC) [Entitic vol] 48.2 fL 35.1-43.9 [facility] Hematocrit Auto (Bld) [Volum e fraction]Ordered By: Bert Greenwood on 01-05-2024 Hematocrit (Bld) [Volume fraction] 42.2 % 37-47 [facility] Laboratory - Chemistry and C hemistry - challengeOrdered By: Bert Greenwood on 01-05-2024 CO2 [Moles/Vol] 26.0 mmol/L 21.0-32.0 [facility] Urea nitrogen/Creatinine [Mass ratio] 28.0 mg/mg 10-20 [facility] Laboratory - Hematology and Cell countsOrdered By: Bert Greenwood on 01-05-2024 MCH (RBC) [Entitic mass] 25.8 pg 27.0-32.0 [facility] MCHC (RBC) [Mass/Vol] 31.0 g/dL 32-36 [facility] Myelocytes/100 WBC (Bld) 1 % 0-0 [facility] Platelet mean volume (Bld) [Entitic vol] 10.1 fL 6.2-12.0 [facility] Platelets (Bld) [#/Vol] 498 10*3/uL 150-450 [facility] No Panel InformationOrdered By: Bert Greenwood on 01-05-2024 Estimated Creatinine Clearance Calc 60.35 ml/min [facility] Estimated GFR (MDRD) Amer 91 mL/min >60 [facility] Comment on above: GFR Calc Estimated GFR (MDRD) Non-Af Amer 75 mL/min >60 [facility] Comment on above: Non- GFR Calc RBC Auto (Bld) [#/Vol]Ordere d By: Bert Greenwood on 01-05-2024 RBC (Bld) [#/Vol] 5.07 10*6/uL 4.2-5.4 [facility] RBC morphologyOrdered By: Dorian Greenwood on 01-05-2024 RBC morphology finding Nom (Bld) NORM C+C NORMAL NORM C&C [facility] Review by pathologistOrdered By: Bert Greenwood on 01-05-2024 Pathologist review Geovany (Unsp spec) [Interp] Tiesha gotti [facility] Pathologist review Geovany (Unsp spec) [Interp] Reviewed [facility] Comment on above: Previous reported re sult: Tiesha gotti Edited by: DESHAWN on 01/06/24:1540Neutrophilic leukocytosis with left shift.Thrombocytosis.Clinical correlation necessary.Javier Best M.D. 01/06/24 AMENDED REPORT 01/06/24 1540 PATH REV previously reported as: Tiesha gotti Serum or plasma calcium esthela urement (mass/volume)Ordered By: Bert Greenwood on 01-05-2024 Calcium [Mass/Vol] 10.5 mg/dL 8.5-10.1 [facility] Serum or plasma creatinine m easurement (mass/volume)Ordered By: Bert Greenwood on 01-05-2024 Creatinine [Mass/Vol] 0.82 mg/dL 0.55-1.02 [facility] Comment on above: The validity of the calculated GFR & GFRAA in patients over 70 years has not been determined. Clinical correlation is essential. Serum or plasma urea nitroge n measurement (mass/volume)Ordered By: Bert Greenwood on 01-05-2024 Urea nitrogen [Mass/Vol] 23 mg/dL 7-18 [facility] Thin prep Papanicolaou smear with manual screeningOrdered By: Bert Greenwood on 01-05-2024 Thin prep Papanicolaou smear with manual screening 7 5-15 [facility] Total cell countOrdered By: Bert Greenwood on 01-05-2024 Cells counted Molgen (Bld/Tiss) [#] 100 MANUAL DIFF [facility] Bacteria identified Respirat ory culture Nom (Unsp spec)Ordered By: Carin Meraz on 01-04-2024 Respiratory Culture Presumptive C albicans [facility] Gram stain for investigation of transfusion reactionOrdered By: Carin Kt on 01-04-2024 Microscopic observation Gram stain Nom (Unsp spec) [facility] Automated lymphocyte count a s percentage of total leukocytesOrdered By: Carin Meraz on 01-03-2024 Lymphocytes/100 WBC Auto (Unsp spec) 4.0 % 19-41 [facility] Basophil percentageOrdered B y: Kt on 01-03-2024 Basophils/100 WBC (Bld) 0.3 % 0-1 [facility] Bilirubin [Mass/Vol] 0.20 mg/dL 0.20-1.00 [facility] Comment on above: For patients on eltr ombopag therapy, use of Dimension Tiff TBIL is not recommended. Chloride [Moles/Vol] 105 mmol/L 98-107 [facility] Eosinophils/100 WBC (Bld) 0.2 % 0-5 [facility] Glucose [Mass/Vol] 227 mg/dL 74-106 [facility] Comment on above: Glucose result great er than or equal to 200 mg/dLsuggests DIABETES MELLITUS per A.D.A. criteria. Monocytes/100 WBC (Bld) 2.5 % 0-10 [facility] Potassium [Moles/Vol] 4.3 mmol/L 3.5-5.1 [facility] Protein [Mass/Vol] 7.9 g/dL 6.4-8.2 [facility] Sodium [Moles/Vol] 135 mmol/L 136-145 [facility] Immature granulocytes/100 WB C Auto (Bld)Ordered By: Carin Meraz on 01-03-2024 Immature granulocytes/100 WBC (Bld) 1.700 % 0.0-0.9 [facility] Comment on above: IG% - Immature Granu locytes (promyelocytes, myelocytes and metamyelocytes) > 1% indicates that a LEFT SHIFT is Present. Laboratory - Chemistry and C hemistry - challengeOrdered By: Carin Meraz on 01-03-2024 Albumin/Globulin [Mass ratio] 0.6 {ratio} 0.9-2.4 [facility] ALP [Catalytic activity/Vol] 129 U/L 45-117 [facility] ALT [Catalytic activity/Vol] 12 U/L 13-56 [facility] CO2 [Moles/Vol] 23.0 mmol/L 21.0-32.0 [facility] Globulin (S) [Mass/Vol] 5.0 g/dL 2.2-4.2 [facility] Urea nitrogen/Creatinine [Mass ratio] 14.3 mg/mg 10-20 [facility] Laboratory - Hematology and Cell countsOrdered By: Carin Meraz on 01-03-2024 Nucleated RBC/100 WBC (Bld) [Ratio] 0 % 0-5 [facility] No Panel InformationOrdered By: Carin Meraz on 01-03-2024 Estimated Creatinine Clearance Calc 50.50 ml/min [facility] Estimated GFR (MDRD) Amer 74 mL/min >60 [facility] Comment on above: GFR Calc Estimated GFR (MDRD) Non-Af Amer 61 mL/min >60 [facility] Comment on above: Non- GFR Calc Serum or plasma calcium esthela urement (mass/volume)Ordered By: Carin Meraz on 01-03-2024 Calcium [Mass/Vol] 8.9 mg/dL 8.5-10.1 [facility] Serum or plasma creatinine m easurement (mass/volume)Ordered By: Carin Meraz on 01-03-2024 Creatinine [Mass/Vol] 0.98 mg/dL 0.55-1.02 [facility] Comment on above: The validity of the calculated GFR & GFRAA in patients over 70 years has not been determined. Clinical correlation is essential. Serum or plasma urea nitroge n measurement (mass/volume)Ordered By: Carin Meraz on 01-03-2024 Urea nitrogen [Mass/Vol] 14 mg/dL 7-18 [facility] Thin prep Papanicolaou smear with manual screeningOrdered By: Carin Meraz on 01-03-2024 Thin prep Papanicolaou smear with manual screening 2.9 g/dL 3.2-5.0 [facility] Thin prep Papanicolaou smear with manual screening 12 U/L 15-37 [facility] Thin prep Papanicolaou smear with manual screening 7 5-15 [facility] Absolute lymphocyte countOrd ered By: Víctor Huerta on 01-02-2024 Lymphocytes Auto (Unsp spec) [#/Vol] 2.46 10*3/uL 0.83-4.51 [facility] Activated partial thrombopla stin time (aPTT) in platelet poor plasma by coagulation aOrdered By: Víctor Huerta on 01-02-2024 aPTT Coag (PPP) [Time] 32.2 s 24.1-36.2 [facility] Assessment of wrist artery p atency prior to arterial punctureOrdered By: Víctor Huerta on 01-02-2024 Arterial patency Wrist artery --pre arterial puncture Positive [facility] Automated lymphocyte count a s percentage of total leukocytesOrdered By: Víctor Huerta on 01-02-2024 Lymphocytes/100 WBC Auto (Unsp spec) 9.6 % 19-41 [facility] Base excessOrdered By: Brandon Huerta on 01-02-2024 Base excess Calc (BldV) [Moles/Vol] -4 mmol/L -2-2 [facility] Basophil percentageOrdered B y: Víctor Huerta on 01-02-2024 Lactate [Moles/Vol] 1.2 mmol/L 0.4-2.0 [facility] Basophil percentage 22 mmol/L [facility] Basophils/100 WBC (Bld) 92 % 95-99 [facility] Bilirubin [Mass/Vol] 0.30 mg/dL 0.20-1.00 [facility] Comment on above: For patients on eltr ombopag therapy, use of Dimension Tiff TBIL is not recommended. Protein [Mass/Vol] 8.3 g/dL 6.4-8.2 [facility] Basophils/100 WBC (Bld) 0.4 % 0-1 [facility] Chloride [Moles/Vol] 101 mmol/L 98-107 [facility] Eosinophils/100 WBC (Bld) 0.6 % 0-5 [facility] Glucose [Mass/Vol] 126 mg/dL 74-106 [facility] Comment on above: Fasting Glucose resu lt greater than or equal to 126 mg/dL suggests DIABETES MELLITUS per A.D.A. criteria. Hemoglobin (Bld) [Mass/Vol] 12.9 g/dL 12.0-15.0 [facility] Monocytes/100 WBC (Bld) 6.9 % 0-10 [facility] Neutrophils (Bld) [#/Vol] 21.0 10*3/uL 2.0-7.7 [facility] Neutrophils/100 WBC (Bld) 81.7 % 47-70 [facility] Potassium [Moles/Vol] 3.9 mmol/L 3.5-5.1 [facility] Sodium [Moles/Vol] 133 mmol/L 136-145 [facility] WBC (Bld) [#/Vol] 25.7 10*3/uL 4.4-11.0 [facility] Blood manual differential co mment interpretation (narrative result)Ordered By: Víctor Huerta on 01-02-2024 Manual differential comment Geovany (Bld) [Interp] SCANNED [facility] Determination of erythrocyte mean corpuscular volume (MCV)Ordered By: Víctor Huerta on 01-02-2024 MCV (RBC) [Entitic vol] 83.2 fL 81-99 [facility] Direct bilirubinOrdered By: Víctor Huerat on 01-02-2024 Bilirubin.direct [Mass/Vol] 0.13 mg/dL 0.00-0.30 [facility] Erythrocyte distribution wid th ratioOrdered By: Víctor Huerta on 01-02-2024 Erythrocyte distribution width (RBC) [Ratio] 15.6 % 11.6-14.6 [facility] Erythrocyte distribution wid th standard deviationOrdered By: Víctor Huerta on 01-02-2024 Erythrocyte distribution width (RBC) [Entitic vol] 47.1 fL 35.1-43.9 [facility] Hematocrit Auto (Bld) [Volum e fraction]Ordered By: Víctor Huerta on 01-02-2024 Hematocrit (Bld) [Volume fraction] 41.5 % 37-47 [facility] Immature granulocytes/100 WB C Auto (Bld)Ordered By: Víctor Huerta on 01-02-2024 Immature granulocytes/100 WBC (Bld) 0.800 % 0.0-0.9 [facility] Comment on above: IG% - Immature Granu locytes (promyelocytes, myelocytes and metamyelocytes) > 1% indicates that a LEFT SHIFT is Present. Laboratory - Chemistry and C hemistry - challengeOrdered By: Víctor Huerta on 01-02-2024 ALP [Catalytic activity/Vol] 148 U/L 45-117 [facility] ALT [Catalytic activity/Vol] 13 U/L 13-56 [facility] Globulin (S) [Mass/Vol] 5.1 g/dL 2.2-4.2 [facility] Natriuretic peptide B (Bld) [Mass/Vol] 75.1 pg/mL 0-100 [facility] CO2 [Moles/Vol] 25.0 mmol/L 21.0-32.0 [facility] Urea nitrogen/Creatinine [Mass ratio] 14.7 mg/mg 10-20 [facility] Laboratory - CoagulationOrde red By: Víctor Huerta on 01-02-2024 INR Coag (Bld) [Relative time] 1.1 {INR} [facility] PT Coag (PPP) [Time] 14.5 s 11.7-14.9 [facility] Laboratory - Hematology and Cell countsOrdered By: Víctor Huerta on 01-02-2024 MCH (RBC) [Entitic mass] 25.9 pg 27.0-32.0 [facility] MCHC (RBC) [Mass/Vol] 31.1 g/dL 32-36 [facility] Nucleated RBC/100 WBC (Bld) [Ratio] 0 % 0-5 [facility] Platelet mean volume (Bld) [Entitic vol] 9.8 fL 6.2-12.0 [facility] Platelets (Bld) [#/Vol] 311 10*3/uL 150-450 [facility] Laboratory - Microbiology an d Antimicrobial susceptibilityOrdered By: Víctor Huerta on 01-02-2024 Bacteria identified Cx Nom (Bld) No growth in 5 days. [facility] SARS-CoV-2 (COVID-19) RNA KANDY+probe Ql (Unsp spec) [facility] Measurement, pHOrdered By: Tiffani Huerta on 01-02-2024 pH (Unsp spec) 7.42 [pH] 7.35-7.45 [facility] No Panel InformationOrdered By: Víctor Huerta on 04-06-2024 Arterial Blood Partial Pressure CO2 32.2 mmHg 35-45 [facility] Arterial Blood Partial Pressure O2 62 mmHG 75-100 [facility] Blood Gas Bicarbonate Actual 20.7 mmol/L 22-26 [facility] Blood Gas Oxygen Percent 21.0 [facility] Blood Gas Sample Site R Radial [facility] Blood Gas Specimen Type ART [facility] Blood Gas Vent Mode Not entered [facility] Oxygen Delivery Device Room Air [facility] Estimated Creatinine Clearance Calc 51.55 ml/min [facility] Estimated GFR (MDRD) Amer 77 mL/min >60 [facility] Comment on above: GFR Calc Estimated GFR (MDRD) Non-Af Amer 63 mL/min >60 [facility] Comment on above: Non- GFR Calc Troponin I High Sensitivity 13 pg/mL 3.0-54.0 [facility] Comment on above: Please Note: [place] t Units and Gender Specific Reference Ranges. For more information see Policy Stat Procedure Tiff High Sensitivity Troponin (TNIH) and attachments. RBC Auto (Bld) [#/Vol]Ordere d By: Víctor Huerta on 01-02-2024 RBC (Bld) [#/Vol] 4.99 10*6/uL 4.2-5.4 [facility] Review by pathologistOrdered By: Víctor Huerta on 01-02-2024 Pathologist review Geovany (Unsp spec) [Interp] January [facility] Serum or plasma calcium esthela urement (mass/volume)Ordered By: Víctor Huerta on 01-02-2024 Calcium [Mass/Vol] 8.9 mg/dL 8.5-10.1 [facility] Serum or plasma creatinine m easurement (mass/volume)Ordered By: Víctor Huerta on 01-02-2024 Creatinine [Mass/Vol] 0.96 mg/dL 0.55-1.02 [facility] Comment on above: The validity of the calculated GFR & GFRAA in patients over 70 years has not been determined. Clinical correlation is essential. Serum or plasma urea nitroge n measurement (mass/volume)Ordered By: Víctor Huerta on 01-02-2024 Urea nitrogen [Mass/Vol] 14 mg/dL 7-18 [facility] Serum procalcitonin measurem entOrdered By: Carin Meraz on 01-02-2024 Procalcitonin [Mass/Vol] 0.11 ng/mL 0.00-0.09 [facility] Comment on above: A procalcitonin (PCT ) [...] smear with manual screening 3.2 g/dL 3.2-5.0 [facility] Thin prep Papanicolaou smear with manual screening 14 U/L 15-37 [facility] Thin prep Papanicolaou smear with manual screening 7 5-15 [facility] Influenza virus A and B and SARS-CoV-2 (COVID-19) Ag panel - Upper respiratory specimOrdered By: Tasneem Dykes on 07-08-2023 SARS-CoV-2 (COVID-19) RNA KANDY+probe Ql (Resp) [facility] Absolute lymphocyte countOrd ered By: ED PROVIDER on 06-02-2023 Lymphocytes Auto (Unsp spec) [#/Vol] 2.95 10*3/uL 0.83-4.51 [facility] Basophil percentageOrdered B y: ED PROVIDER on 06-02-2023 Basophils/100 WBC (Bld) 1.0 % 0-1 [facility] Chloride [Moles/Vol] 105 mmol/L 98-107 [facility] Eosinophils/100 WBC (Bld) 3.6 % 0-5 [facility] Glucose [Mass/Vol] 117 mg/dL 74-106 [facility] Comment on above: Fasting Glucose resu lt from 100 to 125 mg/dL suggests IMPAIRED HOMEOSTASIS per A.D.A. criteria. Neutrophils (Bld) [#/Vol] 7.4 10*3/uL 2.0-7.7 [facility] Neutrophils/100 WBC (Bld) 63.1 % 47-70 [facility] Potassium [Moles/Vol] 4.2 mmol/L 3.5-5.1 [facility] Sodium [Moles/Vol] 141 mmol/L 136-145 [facility] WBC (Bld) [#/Vol] 11.7 10*3/uL 4.4-11.0 [facility] Blood erythrocytes count (nu mber/volume)Ordered By: ED PROVIDER on 06-02-2023 RBC (Bld) [#/Vol] 4.88 10*6/uL 4.2-5.4 [facility] Blood hemoglobin measurement (mass/volume)Ordered By: ED PROVIDER on 06-02-2023 Hemoglobin (Bld) [Mass/Vol] 13.3 g/dL 12.0-15.0 [facility] Blood lymphocytes/100 leukoc ytesOrdered By: ED PROVIDER on 06-02-2023 Lymphocytes/100 WBC (Bld) 25.1 % 19-41 [facility] Blood monocytes/100 leukocyt esOrdered By: ED PROVIDER on 06-02-2023 Monocytes/100 WBC (Bld) 6.4 % 0-10 [facility] Blood platelet mean volumeOr dered By: ED PROVIDER on 06-02-2023 Platelet mean volume (Bld) [Entitic vol] 10.1 fL 6.2-12.0 [facility] Determination of erythrocyte mean corpuscular volume (MCV)Ordered By: ED PROVIDER on 06-02-2023 MCV (RBC) [Entitic vol] 83.2 fL 81-99 [facility] Hematocrit Auto (Bld) [Volum e fraction]Ordered By: ED PROVIDER on 06-02-2023 Hematocrit (Bld) [Volume fraction] 40.6 % 37-47 [facility] Influenza virus A and B and SARS-CoV-2 (COVID-19) Ag panel - Upper respiratory specimOrdered By: Levar Handy on 06-02-2023 SARS-CoV-2 (COVID-19) RNA KANDY+probe Ql (Resp) [facility] Laboratory - Chemistry and C hemistry - challengeOrdered By: ED PROVIDER on 06-02-2023 CO2 [Moles/Vol] 27.0 mmol/L 21.0-32.0 [facility] Urea nitrogen/Creatinine [Mass ratio] 6.9 mg/mg 10-20 [facility] Laboratory - Hematology and Cell countsOrdered By: ED PROVIDER on 06-02-2023 Erythrocyte distribution width (RBC) [Entitic vol] 46.1 fL 35.1-43.9 [facility] Erythrocyte distribution width (RBC) [Ratio] 15.3 % 11.6-14.6 [facility] Immature granulocytes/100 WBC (Bld) 0.800 % 0.0-0.9 [facility] Comment on above: IG% - Immature Granu locytes (promyelocytes, myelocytes and metamyelocytes) > 1% indicates that a LEFT SHIFT is Present. MCH (RBC) [Entitic mass] 27.3 pg 27.0-32.0 [facility] Nucleated RBC/100 WBC (Bld) [Ratio] 0 % 0-5 [facility] MCHC Auto (RBC) [Mass/Vol]Or dered By: ED PROVIDER on 06-02-2023 MCHC (RBC) [Mass/Vol] 32.8 g/dL 32-36 [facility] No Panel InformationOrdered By: ED PROVIDER on 06-02-2023 Estimated Creatinine Clearance Calc 56.88 ml/min [facility] Estimated GFR (MDRD) Amer 86 mL/min >60 [facility] Comment on above: GFR Calc Estimated GFR (MDRD) Non-Af Amer 71 mL/min >60 [facility] Comment on above: Non- GFR Calc Platelets bldOrdered By: ED PROVIDER on 06-02-2023 Platelets (Bld) [#/Vol] 361 10*3/uL 150-450 [facility] Serum or plasma calcium esthela urement (mass/volume)Ordered By: ED PROVIDER on 06-02-2023 Calcium [Mass/Vol] 9.3 mg/dL 8.5-10.1 [facility] Serum or plasma creatinine m easurement (mass/volume)Ordered By: ED PROVIDER on 06-02-2023 Creatinine [Mass/Vol] 0.87 mg/dL 0.55-1.02 [facility] Comment on above: The validity of the calculated GFR & GFRAA in patients over 70 years has not been determined. Clinical correlation is essential. Serum or plasma urea nitroge n measurement (mass/volume)Ordered By: ED PROVIDER on 06-02-2023 Urea nitrogen [Mass/Vol] 6 mg/dL 7-18 [facility] Thin prep Papanicolaou smear with manual screeningOrdered By: ED PROVIDER on 06-02-2023 Thin prep Papanicolaou smear with manual screening 9 5-15 [facility] Ophthalmic Eye [facility] 2022 Ophthalmic Eye Exam DOCUMENT REVIEWED BY : Yrn Ortega DOCUMENT SIGNED ELECTRONICALLY BY Yrn Ortega ON 12/23/2022 09:55:17 PM [id number] [place], [address] THIS DOCUMENT WAS CREATED ON: 12/22/2022 02:52:23 PM BY: MARCELLA Hutchinson [id number] Exam Date: Thursday, December 22, 2022 PATIENT [...] to be resolving - Dr Jurado in [facility], No Mri done recently Context/Onset-several weeks ago, Location-right eye, HISTORY OF PRESENT ILLNESS: PROBLEM: Pt sts orbital swelling seen in ED and admission and resolved with antibiotics PT sts has reoccurrance about 3 weeks ago with swelling above right eye and currently on oral prednisone 20mg and was on oral antibiotics and seems to be resolving - Dr Jurado in [facility] CONTEXT/ONSET: several weeks ago LOCATION: right eye [...] [Reported] ARIPiprazole TABS - Tablet, [Reported] Creon [id number] UNIT Oral Capsule Delayed Release Particles - [...] CUP TO DISC: 0.4 0.4 OPTIC DISC: [place] and sharp [place] and sharp VITREOUS: Clear Clear Impression 1 [...] without biopsy. - will inform Dr. Jurado ([facility]) [address] [place] [address], [place] [id number], phone [phone] fax [phone] - consider further imaging if there is another recurrence of swelling f/u 10 weeks Yrn Ortega DOCUMENT CREATE DATE: 12/22/2022 02:52:23 PM Received for:Yrn Ortega MD Dec 23 2022 9:55PM [place] Standard Time Normal Mandae XR Lumbar spine 3 Viewson IMPRESSION: Lumbar spine degenerative changes as described above. Specialist Managers: BABATUNDE Transcribe Date/Time: Nov 26 2022 2:44P Dictated by : CHELA GAMING MD This examination was interpreted and the report reviewed and electronically signed by: CHELA GAMING MD on Nov 26 2022 2:59PM [facility] DIVISION OF RADIOLOGY * * *Final Report* [...] spine are presented. FINDINGS: There are five ynm-xyl-[id number] lumbar vertebrae. No acute fracture or subluxations are noted. The disc spaces are well preserved. There is minimal osteophyte formation. Kissing spine seen on lateral view. Others: There are vascular calcifications. DIVISION OF RADIOLOGY Provider, Jacques Bacon - 11/26/2022 * * *Final Report* * [...] spine are presented. FINDINGS: There are five zof-gvo-zekmibv lumbar vertebrae. No acute fracture or subluxations are noted. The disc spaces are well preserved. There is minimal osteophyte formation. Kissing spine seen on lateral view. Others: There are vascular calcifications. IMPRESSION IMPRESSION: Lumbar spine degenerative changes as described above. Specialist Managers: BABATUNDE Transcribe Date/Time: Nov 26 2022 2:44P Dictated by : CHELA GAMING MD This examination was interpreted and the report reviewed and electronically signed by: CHELA GAMING MD on Nov 26 2022 2:59PM EST [facility] XR Lumbar spine 3 ViewsOrder ed By: [facility] Provider on 11-26-2022 [facility] XR Lumbar spine 3 Viewson Radiology Study observation (narrative) [facility] XR CHEST 2V FRONTAL/LATon [facility] XR Chest PA and Lateralon IMPRESSION: No acute radiographic abnormality. Specialist Managers: PSCTova Transcribe Date/Time: Nov 11 2022 10:22P Dictated by : NANETTE OGDEN MD This examination was interpreted and the report reviewed and electronically signed by: NANETTE GODEN MD on Nov 11 2022 10:23PM [facility] DIVISION OF RADIOLOGY * * *Final Report* [...] soft tissues: Unremarkable. DIVISION OF RADIOLOGY Provider, [facility] [facility] - 11/11/2022 * * *Final Report* * [...] Unremarkable. IMPRESSION IMPRESSION: No acute radiographic abnormality. Specialist Managers: BABATUNDE Transcribe Date/Time: Nov 11 2022 10:22P Dictated by : NANETTE OGDEN MD This examination was interpreted and the report reviewed and electronically signed by: NANETTE OGDEN MD on Nov 11 2022 10:23PM EST [facility] Radiology Study observation (narrative) Minoo back [facility] XR Chest PA and LateralOrder ed By: Ccf Provider on 11-11-2022 [facility] Absolute lymphocyte countOrd ered By: Dr. Bonilla on 11-07-2022 Lymphocytes Auto (Unsp spec) [#/Vol] 2.70 10*3/uL 0.83-4.51 [facility] Basophil percentageOrdered B y: Dr. Bonilla on 11-07-2022 Basophils/100 WBC (Bld) 0.4 % 0-1 [facility] Chloride [Moles/Vol] 99 mmol/L 98-107 [facility] Eosinophils/100 WBC (Bld) 4.1 % 0-5 [facility] Glucose [Mass/Vol] 90 mg/dL 74-106 [facility] Neutrophils (Bld) [#/Vol] 8.0 10*3/uL 2.0-7.7 [facility] Neutrophils/100 WBC (Bld) 59.2 % 47-70 [facility] Potassium [Moles/Vol] 3.0 mmol/L 3.5-5.1 [facility] Sodium [Moles/Vol] 141 mmol/L 136-145 [facility] WBC (Bld) [#/Vol] 13.6 10*3/uL 4.4-11.0 [facility] Blood erythrocytes count (nu mber/volume)Ordered By: Dr. Bonilla on 11-07-2022 RBC (Bld) [#/Vol] 3.28 10*6/uL 4.2-5.4 [facility] Blood hemoglobin measurement (mass/volume)Ordered By: Dr. Bonilla on 11-07-2022 Hemoglobin (Bld) [Mass/Vol] 8.8 g/dL 12.0-15.0 [facility] Blood lymphocytes/100 leukoc ytesOrdered By: Dr. Bonilla on 11-07-2022 Lymphocytes/100 WBC (Bld) 19.9 % 19-41 [facility] Blood manual differential co mment interpretation (narrative result)Ordered By: Dr. Bonilla on 11-07-2022 Manual differential comment Geovany (Bld) [Interp] SCANNED [facility] Blood monocytes/100 leukocyt esOrdered By: Dr. Bonilla on 11-07-2022 Monocytes/100 WBC (Bld) 13.8 % 0-10 [facility] Blood platelet mean volumeOr dered By: Dr. Bonilla on 11-07-2022 Platelet mean volume (Bld) [Entitic vol] 9.9 fL 6.2-12.0 [facility] Determination of erythrocyte mean corpuscular volume (MCV)Ordered By: Dr. Bonilla on 11-07-2022 MCV (RBC) [Entitic vol] 83.5 fL 81-99 [facility] Hematocrit Auto (Bld) [Volum e fraction]Ordered By: Dr. Bonilla on 11-07-2022 Hematocrit (Bld) [Volume fraction] 27.4 % 37-47 [facility] Laboratory - Chemistry and C hemistry - challengeOrdered By: Dr. Bonilla on 11-07-2022 CO2 [Moles/Vol] 36.0 mmol/L 21.0-32.0 [facility] Urea nitrogen/Creatinine [Mass ratio] 15.6 mg/mg 10-20 [facility] Laboratory - Hematology and Cell countsOrdered By: Dr. Bonilla on 11-07-2022 Erythrocyte distribution width (RBC) [Entitic vol] 45.4 fL 35.1-43.9 [facility] Erythrocyte distribution width (RBC) [Ratio] 14.8 % 11.6-14.6 [facility] Immature granulocytes/100 WBC (Bld) 2.600 % 0.0-0.9 [facility] Comment on above: IG% - Immature Granu locytes (promyelocytes, myelocytes and metamyelocytes) > 1% indicates that a LEFT SHIFT is Present. MCH (RBC) [Entitic mass] 26.8 pg 27.0-32.0 [facility] Nucleated RBC/100 WBC (Bld) [Ratio] 0 % 0-5 [facility] MCHC Auto (RBC) [Mass/Vol]Or dered By: Dr. Bonilla on 11-07-2022 MCHC (RBC) [Mass/Vol] 32.1 g/dL 32-36 [facility] No Panel InformationOrdered By: Dr. Bonilla on 11-07-2022 Estimated Creatinine Clearance Calc 52.20 ml/min [facility] Estimated GFR (MDRD) Amer 76 mL/min >60 [facility] Comment on above: GFR Calc Estimated GFR (MDRD) Non-Af Amer 63 mL/min >60 [facility] Comment on above: Non- GFR Calc Platelets bldOrdered By: Dr. Bonilla on 11-07-2022 Platelets (Bld) [#/Vol] 395 10*3/uL 150-450 [facility] Review by pathologistOrdered By: Dr. Bonilla on 11-07-2022 Pathologist review Geovany (Unsp spec) [Interp] Reviewed [facility] Comment on above: Previous reported re sult: January ana maría Edited by: RGOOD on 11/07/22:1323Leukocytosis with Neutrophilic left shift. Normocytic anemia.Clinical correlation necessary.Javier Best M.D. 11/07/22 AMENDED REPORT 11/07/22 1323 PATH REV previously reported as: January ana maría Serum or plasma calcium esthela urement (mass/volume)Ordered By: Dr. Bonilla on 11-07-2022 Calcium [Mass/Vol] 8.4 mg/dL 8.5-10.1 [facility] Serum or plasma creatinine m easurement (mass/volume)Ordered By: Dr. Bonilla on 11-07-2022 Creatinine [Mass/Vol] 0.96 mg/dL 0.55-1.02 [facility] Comment on above: The validity of the calculated GFR & GFRAA in patients over 70 years has not been determined. Clinical correlation is essential. Serum or plasma urea nitroge n measurement (mass/volume)Ordered By: Dr. Bonilla on 11-07-2022 Urea nitrogen [Mass/Vol] 15 mg/dL 7-18 [facility] Thin prep Papanicolaou smear with manual screeningOrdered By: Dr. Bonilla on 11-07-2022 Thin prep Papanicolaou smear with manual screening 6 5-15 [facility] Laboratory - Hematology and Cell countsOrdered By: Dr. Bonilla on 11-06-2022 Anisocytosis Ql (Bld) 1+ [facility] Assessment of wrist artery p atency prior to arterial punctureOrdered By: Dr. Bonilla on 11-05-2022 Arterial patency Wrist artery --pre arterial puncture N/A [facility] Base excessOrdered By: Dr. Melchor camargo on 11-05-2022 Base excess Calc (BldV) [Moles/Vol] -10 mmol/L -2-2 [facility] Basophil percentageOrdered B y: Dr. Bonilla on 11-05-2022 Basophil percentage 17.6 mmol/L 22-26 [facility] Basophils/100 WBC (Bld) 97 % 95-99 [facility] CO2 (BldA) [Partial pressure ]Ordered By: Dr. Bonilla on 11-05-2022 CO2 (Bld) [Partial pressure] 44.1 mm[Hg] 35-45 [facility] Laboratory - Chemistry and C hemistry - challengeOrdered By: Dr. Sebastian on 11-05-2022 Lipase [Catalytic activity/Vol] 112 U/L 73-393 [facility] Laboratory - CoagulationOrde red By: Dr. Bonilla on 11-05-2022 aPTT Coag (Bld) [Time] 68.4 s 24.1-36.2 [facility] No Panel InformationOrdered By: Dr. Bonilla on 11-05-2022 Bld Gas Crit Called To/Read Back By Yes [facility] Blood Gas Liter Flow 3.0 /min [facility] Blood Gas Notified Whom Dr Sebastian [facility] Blood Gas Sample Site L Radial [facility] Blood Gas Specimen Type ART [facility] Blood Gas Total CO2 19 mmol/L [facility] Oxygen Delivery Device Cannula [facility] Oxygen (BldA) [Partial press ure]Ordered By: Dr. Bonilla on 11-05-2022 Oxygen (Bld) [Partial pressure] 107 mmHG 75-100 [facility] Serum or plasma vancomycin m easurement (mass/volume)Ordered By: Dr. Bonilla on 11-05-2022 Vancomycin [Mass/Vol] 18.2 ug/mL 0.0-15.0 [facility] Comment on above: VANCOMYCIN STANDARD DRUG THERAPY: CRITICAL VALUE IS > 15.0 mg/L VANCOMYCIN HIGH INTENSITY THERAPY: CRITICAL VALUE IS > 20.0 mg/L PLEASE CONTACT PHARMACY SERVICES (#[id number]) FOR INTERPRETATIONOF RESULTS. THIS RESULT DOES NOT REPRESENT A PEAK OR TROUGHLEVEL FOR THIS DRUG. pH measurementOrdered By: Dr Max Bonilla on 11-05-2022 pH (Unsp spec) 7.21 [pH] 7.35-7.45 [facility] Basophil percentageOrdered B y: Dr. Iverson on 11-04-2022 Basophil percentage 0-5 SEEN /hpf 0-5 [facility] Basophil percentageOrdered B y: Dr. Bonilla on 11-04-2022 Lactate [Moles/Vol] 1.4 mmol/L 0.4-2.0 [facility] Bilirubin Test strip Ql (U)O rdered By: Dr. Iverson on 11-04-2022 Bilirubin Ql (U) Negative Negative [facility] INR in Blood by Coagulation assayOrdered By: Dr. Bonilla on 11-04-2022 INR Coag (Bld) [Relative time] 1.2 {INR} [facility] Ketones Test strip Ql (U)Ord ered By: Dr. Iverson on 11-04-2022 Ketones Ql (U) Negative Negative [facility] Laboratory - CoagulationOrde red By: Dr. Bonilla on 11-04-2022 PT Coag (PPP) [Time] 14.6 s 11.7-14.9 [facility] Mucus LM Ql (Urine sed)Order ed By: Dr. Iverson on 11-04-2022 Mucus Ql (Urine sed) 0 SEEN /hpf [facility] Nitrite Test strip Ql (U)Ord ered By: Dr. Iverosn on 11-04-2022 Nitrite Ql (U) Negative Negative [facility] No Panel InformationOrdered By: Dr. Bonilla on 11-04-2022 Blood Gas Oxygen Percent 30 [facility] Blood Gas Respiration Rate 12 [facility] Urine Urea Nitrogen 302 mg/dL NO RANGE EST. [facility] Protein Test strip Ql (U)Ord ered By: Dr. Iverson on 11-04-2022 Protein Ql (U) 30 mg/dl Negative [facility] Squamous epithelial cells de tection in urine sediment by light microscopyOrdered By: Dr. Iverson on 11-04-2022 Epithelial cells.squamous LM Ql (Urine sed) 0 SEEN /hpf 5-10 [facility] Urine blood detectionOrdered By: Dr. Iverson on 11-04-2022 RBC Ql (U) 150 /ul Negative [facility] RBC Ql (U) 10-25 SEEN /hpf 0-5 [facility] Urine clarityOrdered By: Dr. Iverson on 11-04-2022 Clarity (U) Clear Clear [facility] Urine color determinationOrd ered By: Dr. Iverson on 11-04-2022 Color (U) Yellow Yellow [facility] Urine creatinine measurement (mass/volume)Ordered By: Dr. Bonilla on 11-04-2022 Creatinine (U) [Mass/Vol] 33.40 mg/dL NO RANGE EST. [facility] Urine glucose detectionOrder ed By: Dr. Iverson on 11-04-2022 Glucose Ql (U) 50 mg/dl Normal [facility] Urine leukocyte esterase det ection by dipstickOrdered By: Dr. Iverson on 11-04-2022 Leukocyte esterase Test strip Ql (U) Negative Negative [facility] Urine pHOrdered By: Dr. Feng sanders on 11-04-2022 pH (U) 6.0 [pH] 5.0 - 8.0 [facility] Urine sediment bacteria coun t by microscopy (number/high power field)Ordered By: Dr. Iverson on 11-04-2022 Bacteria LM.HPF (Urine sed) [#/Area] RARE /hpf None Seen [facility] Urine specific gravity measu rementOrdered By: Dr. Iverson on 11-04-2022 Specific gravity (U) [Rel density] 1.015 1.002-1.030 [facility] Urobilinogen Auto test strip Ql (U)Ordered By: Dr. Iverson on 11-04-2022 Urobilinogen Ql (U) Normal mg/dl Normal [facility] Basophil percentageOrdered B y: Dr. Ross on 11-03-2022 Bilirubin [Mass/Vol] 0.20 mg/dL 0.20-1.00 [facility] Comment on above: For patients on eltr ombopag therapy, use of Dimension Tiff TBIL is not recommended. Protein [Mass/Vol] 5.7 g/dL 6.4-8.2 [facility] Laboratory - Chemistry and C hemistry - challengeOrdered By: Dr. Ross on 11-03-2022 ALP [Catalytic activity/Vol] 97 U/L 45-117 [facility] ALT [Catalytic activity/Vol] 31 U/L 13-56 [facility] Globulin (S) [Mass/Vol] 3.5 g/dL 2.2-4.2 [facility] Laboratory - Microbiology an d Antimicrobial susceptibilityOrdered By: Dr. Ross on 11-03-2022 Respiratory pathogens DNA and RNA 12b panel KANDY+probe (Unsp spec) [facility] Serum or plasma albumin esthela urement (mass/volume)Ordered By: Dr. Ross on 11-03-2022 Albumin [Mass/Vol] 2.2 g/dL 3.2-5.0 [facility] Serum or plasma albumin/glob ulin mass ratioOrdered By: Dr. Ross on 11-03-2022 Albumin/Globulin [Mass ratio] 0.6 {ratio} 0.9-2.4 [facility] Thin prep Papanicolaou smear with manual screeningOrdered By: Dr. Ross on 11-03-2022 Thin prep Papanicolaou smear with manual screening 36 U/L 15-37 [facility] No Panel InformationOrdered By: Dr. Ochoa on 11-02-2022 Bedside Blood Gas PEEP 8 [facility] Stool Calprotectin 118 ug/g 0-120 [facility] Comment on above: Concentration Interp retation Follow-Up<16 - 50 ug/g Normal None>50 -120 ug/g Borderline Re-evaluate in 4-6 weeks >120 ug/g Abnormal Repeat as clinically indicated No Panel InformationOrdered By: Dr. Fatima on 11-02-2022 Troponin I High Sensitivity 92 pg/mL 3.0-54.0 [facility] Comment on above: Please Note: [place] t Units and Gender Specific Reference Ranges. For more information see Policy Stat Procedure Tiff High Sensitivity Troponin (TNIH) and attachments. Stool pHOrdered By: Dr. Pj smallwood on 11-02-2022 pH (Stl) 6.0 7.0-7.5 [facility] Comment on above: Performed at: [address] [id number] Director: Marvin Quintanilla MD, Phone: [phone] at: [facility] [id number] Director: Tj Mendoza PhD, Phone: [phone] Chart Updateon 11-01-2022 Chart Update Chart Update Received page to [facility] pager that Pt is calling for internal medicine. Reviewed chart and noted pt was not a [facility] patient but had recently been D/C from [facility]. Attempted to call phone answering service but was unable to connect with the flow coordinator who processed the call for more information. Called pt and informed her that I was a resident with the [facility] clinic and her message was likely sent to me in error, she was concerned that she had not been urinating much recently despite drinking a significant amount of water (estimated 12 12 oz bottles since last night). She further stated she had called her PCP office today regarding this issue and reached an on-call PROTECTION ENGINEER who recommended she present to the ED [...] Nov 01 2022 11:56AM EST (Author) Normal Mandae Telephone Encounteron 2022 Preparer Authentication Interface Message Text Situation: Patient states she was prescribed medication by and medication making her mouth dry (Patient not established with PCP at this time) Background: see above Assessment: Advised patient to reached out to prescribing provider- Recommendation: Verbalized understanding-Provided number to Normal [facility] ANCA-ASSOCIATED VASCULITIS P ROFILE [ANCA,MPO,PR3]on 10-30-2022 ANCA IFA PATTERN Not detected Normal None Detected [facility] Comment on above: Result Comment: INTE RPRETIVE INFORMATION: ANCA IFA Pattern Neutrophil Cytoplasmic Antibodies (C-ANCA = granular cytoplasmic staining, P-ANCA = perinuclear staining) are found in the serum of over 90 percent of patients with certain necrotizing systemic vasculitides, and usually in less than 5 percent of patients with collagen vascular disease or arthritis. Performed By: [facility] [address] [place] [address] Glass Toughening Operator: Kyle Hyatt MD, PhD Performed By: #### A NCMP #### [facility] [address] [place] [address] ANCA IFA TITER <1:20 Normal <1:20 [facility] Comment on above: Performed By: #### A NCMP #### [facility] [address] [place] [address] MYELOPEROXIDASE AB 0 AU/mL Normal 0-19 [facility] Comment on above: Result Comment: INTE RPRETIVE INFORMATION: Myeloperoxidase Abs, IgG 19 AU/mL or Less ......... Negative 20-25 AU/mL .............. Equivocal 26 AU/mL or Greater ...... Positive Approximately 90% of patients with a P-ANCA pattern by IFA have antibodies specific for MPO. Performed By: #### A NC #### [facility] [address] [place] [address] PROTEINASE-3 0 AU/mL Normal 0-19 [facility] Comment on above: Result Comment: INTE RPRETIVE INFORMATION: Serine Proteinase 3, IgG 19 AU/mL or Less ........ Negative 20-25 AU/mL ............. Equivocal 26 AU/mL or Greater ..... Positive Approximately 85% of patients with a C-ANCA pattern by IFA have antibodies specific for PR3. Performed By: #### A NC #### [facility] [address] [place] [address] Clinical Event Note-Ophthalm ology follow upon 10-29-2022 [...] Updated: 30-Oct-2022 12:22 by Yrn Ortega) Normal [facility] LYSOZYMEon 10-29-2022 LYSOZYME 9.0 ug/mL Normal 2.5-12.9 [facility] Comment on above: Result Comment: [...] 9.5 Performed By: #### C MP #### [facility] [address] [place] [address] RENAL FUNCTION PANELon 10-29 Albumin [Mass/Vol] 3.8 g/dL Normal 3.4 - 5.0 [facility] Comment on above: Performed By: #### R ENAL #### [facility] [address] [place] [address] Anion gap [Moles/Vol] 15 mmol/L Normal 10 - 20 [facility] Comment on above: Performed By: #### R ENAL #### [facility] [address] [place] [address] Calcium [Mass/Vol] 9.5 mg/dL Normal 8.6 - 10.6 [facility] Comment on above: Performed By: #### R ENAL #### [facility] [address] [place] [address] Chloride [Moles/Vol] 100 mmol/L Normal 98 - 107 [facility] Comment on above: Performed By: #### R ENAL #### [facility] [address] [place] [address] Creatinine [Mass/Vol] 1.40 mg/dL High 0.50 - 1.05 [facility] Comment on above: Performed By: #### R ENAL #### [facility] [address] [place] [address] GFR/1.73 sq M.predicted among non-blacks MDRD (S/P/Bld) [Vol rate/Area] 43 mL/min/{1.73_m2} Abnormal >90 [facility] Comment on above: Result Comment: CALC ULATIONS OF ESTIMATED GFR ARE PERFORMED USING THE 2020 CKD-EPI STUDY REFIT EQUATION WITHOUT THE RACE VARIABLE FOR THE IDMS-TRACEABLE CREATININE METHODS. https://jasn.asnjournals.org/content/early/ASN.2020 675599 Performed By: #### R ENAL #### [facility] [address] [place] [address] Glucose [Mass/Vol] 109 mg/dL High 74 - 99 [facility] Comment on above: Performed By: #### R ENAL #### [facility] [address] [place] [address] HCO3 (Bld) [Moles/Vol] 23 mmol/L Normal 21 - 32 [facility] Comment on above: Performed By: #### R ENAL #### [facility] [address] [place] [address] Phosphate [Mass/Vol] 4.4 mg/dL Normal 2.5 - 4.9 [facility] Comment on above: Result Comment: The performance characteristics of phosphorus testing in heparinized plasma have been validated by the individual laboratory site where testing is performed. Testing on heparinized plasma is not approved by the FDA; however, such approval is not necessary. Performed By: #### R ENAL #### [facility] [address] [place] [address] Potassium [Moles/Vol] 3.4 mmol/L Low 3.5 - 5.3 [facility] Comment on above: Performed By: #### R ENAL #### [facility] [address] [place] [address] Sodium [Moles/Vol] 135 mmol/L Low 136 - 145 [facility] Comment on above: Performed By: #### R ENAL #### [facility] [address] [place] [address] Urea nitrogen [Mass/Vol] 11 mg/dL Normal 6 - 23 [facility] Comment on above: Performed By: #### R ENAL #### [facility] [address] [place] [address] Renal Function Panelon 10-29 Albumin BCP dye [Mass/Vol] 3.8 g/dL 3.4 - 5.0 [facility] Work Phone: Anion gap [Moles/Vol] 15 mmol/L 10 - 20 [facility] Work Phone: [phone] Calcium [Mass/Vol] 9.5 mg/dL 8.6 - 10.6 [facility] Work Phone: Chloride [Moles/Vol] 100 mmol/L 98 - 107 [facility] Work Phone: CO2 [Moles/Vol] 23 mmol/L 21 - 32 [facility] Work Phone: [phone] Creatinine [Mass/Vol] 1.40 mg/dL above high threshold See Below [facility] Work Phone: Comment on above: Reference Range: 0.5 0 - 1.05 Glucose [Mass/Vol] 109 mg/dL above high threshold 74 - 99 [facility] Work Phone: Phosphate [Mass/Vol] 4.4 mg/dL 2.5 - 4.9 [facility]anny[facility] Work Phone: Comment on above: The performance bruce acteristics of phosphorus testing in heparinized plasma have been validated by the individual laboratory site where testing is performed. Testing on heparinized plasma is not approved by the FDA; however, such approval is not necessary. Potassium [Moles/Vol] 3.4 mmol/L below low threshold 3.5 - 5.3 [facility] Work Phone: Sodium [Moles/Vol] 135 mmol/L [...] RACE VARIABLE FOR THE IDMS-TRACEABLE CREATININE METHODS.https://jasn.asnjournals.org/content/early// ASN.0219935644 BLOOD CULTURE, BACTERIALon 0 10-28-2022 BLOOD CULTURE, BACTERIAL PATIENT: GRACIE BANUELOS LOCATION: L020 L20 BILL#: [id number] : 61 AGE: SEX: F ORDERED BY: JUSTYN RICHTER SOURCE: Blood COLLECTED: 10/28/22 12:04 ANTIBIOTICS AT DEB.: RECEIVED : 10/28/22 16:14 SITE: PERIPHERAL R E S U L T S BLOOD CULTURE, BACTERIAL FINAL 11/01/22 17:42 No Growth at 1 days No Growth at 2 days No Growth at 3 days NO GROWTH at 4 days - FINAL REPORT Normal [facility] Comment on above: Performed By: #### B LDC #### [facility] [address] [place] [address] BLOOD CULTURE, BACTERIAL PATIENT: GRACIE BANUELOS LOCATION: L020 L20 BILL#: [id number] : 61 AGE: SEX: F ORDERED BY: JUSTYN RICHTER SOURCE: Blood COLLECTED: 10/28/22 12:04 ANTIBIOTICS AT DEB.: RECEIVED : 10/28/22 16:14 SITE: PERIPHERAL R E S U L T S BLOOD CULTURE, BACTERIAL FINAL 11/01/22 17:42 No Growth at 1 days No Growth at 2 days No Growth at 3 days NO GROWTH at 4 days - FINAL REPORT Normal [facility] Comment on above: Performed By: #### C MP #### [facility] [address] [place] [address] CBC AND DIFFERENTIALon 10-28 % AUTOMATED IMMATURE GRAN 0.9 % Normal 0.0 - 0.9 [facility] Comment on above: Result Comment: Iram ture Granulocyte Count (IG) includes promyelocytes, myelocytes and metamyelocytes but does not include bands. Percent differential counts (%) should be interpreted in the context of the absolute cell counts (cells/L). Performed By: #### C BCDF #### [facility] [address] [place] [address] Basophils (Bld) [#/Vol] 0.04 10*3/uL Normal 0.00 - 0.1 0 [facility] Comment on above: Performed By: #### C BCDF #### [facility] [address] [place] [address] Basophils/100 WBC (Bld) 0.5 % Normal 0.0 - 2.0 [facility] Comment on above: Performed By: #### C BCDF #### [facility] [address] [place] [address] Eosinophils (Bld) [#/Vol] 0.45 10*3/uL Normal 0.00 - 0.70 [facility] Comment on above: Performed By: #### C BCDF #### [facility] [address] [place] [address] Eosinophils/100 WBC (Bld) 5.5 % Normal 0.0 - 6.0 [facility] Comment on above: Performed By: #### C BCDF #### [facility] [address] [place] [address] Erythrocyte distribution width (RBC) [Ratio] 13.5 % Normal 11.5 - 14.5 [facility] Comment on above: Performed By: #### C BCDF #### [facility] [address] [place] [address] Hematocrit (Bld) [Volume fraction] 35.2 % Low 36.0 - 46.0 [facility] Comment on above: Performed By: #### C BCDF #### [facility] [address] [place] [address] Hemoglobin (Bld) [Mass/Vol] 11.2 g/dL Low 12.0 - 16.0 [facility] Comment on above: Performed By: #### C BCDF #### [facility] [address] [place] [address] Lymphocytes (Bld) [#/Vol] 0.72 10*3/uL Low 1.20 - 4.80 [facility] Comment on above: Performed By: #### C BCDF #### [facility] [address] [place] [address] Lymphocytes/100 WBC (Bld) 8.7 % Normal 13.0 - 44.0 [facility] Comment on above: Performed By: #### C BCDF #### [facility] [address] [place] [address] MCHC (RBC) [Mass/Vol] 31.8 g/dL Low 32.0 - 36.0 [facility] Comment on above: Performed By: #### C BCDF #### [facility] [address] [place] [address] MCV (RBC) [Entitic vol] 85 fL Normal 80 - 100 [facility] Comment on above: Performed By: #### C BCDF #### [facility] [address] [place] [address] Monocytes (Bld) [#/Vol] 0.72 10*3/uL Normal 0.10 - 1.0 0 [facility] Comment on above: Performed By: #### C BCDF #### [facility] [address] [place] [address] Monocytes/100 WBC (Bld) 8.7 % Normal 2.0 - 10.0 [facility] Comment on above: Performed By: #### C BCDF #### [facility] [address] [place] [address] Neutrophils (Bld) [#/Vol] 6.23 10*3/uL Normal 1.20 - 7.70 [facility] Comment on above: Performed By: #### C BCDF #### [facility] [address] [place] [address] Neutrophils/100 WBC (Bld) 75.7 % Normal 40.0 - 80.0 [facility] Comment on above: Performed By: #### C BCDF #### [facility] [address] [place] [address] NUCLEATED RBC 0.0 /100 WBC Normal 0.0-0.0 [facility] Comment on above: Performed By: #### C BCDF #### [facility] [address] [place] [address] Platelets (Bld) [#/Vol] 233 10*3/uL Normal 150 - 450 [facility] Comment on above: Performed By: #### C BCDF #### [facility] [address] [place] [address] RBC 4.15 x10E12/L Normal 4.00 - 5.20 [facility] Comment on above: Performed By: #### C BCDF #### [facility] [address] [place] [address] WBC (Bld) [#/Vol] 8.2 10*3/uL Normal 4.4 - 11.3 [facility] Comment on above: Performed By: #### C BCDF #### [facility] [address] [place] [address] % AUTOMATED IMMATURE GRAN Canceled Normal [facility] Comment on above: Order Comment: TEST CBC AND DIFFERENTIAL WAS CANCELLED, 10/28/2022 16:16 Result Comment: Iram ture Granulocyte Count (IG) includes promyelocytes, myelocytes and metamyelocytes but does not include bands. Percent differential counts (%) should be interpreted in the context of the absolute cell counts (cells/L). Performed By: #### V ANCU #### [facility] [address] [place] [address] % BASOPHIL Canceled Normal [facility] Comment on above: Order Comment: TEST CBC AND DIFFERENTIAL WAS CANCELLED, 10/28/2022 16:16 Performed By: #### V ANCU #### [facility] [address] [place] [address] % EOSINOPHIL Canceled Normal [facility] Comment on above: Order Comment: TEST CBC AND DIFFERENTIAL WAS CANCELLED, 10/28/2022 16:16 Performed By: #### V ANCU #### [facility] [address] [place] [address] % LYMPHOCYTE Canceled Normal [facility] Comment on above: Order Comment: TEST CBC AND DIFFERENTIAL WAS CANCELLED, 10/28/2022 16:16 Performed By: #### V ANCU #### [facility] [address] [place] [address] % MONOCYTE Canceled Normal [facility] Comment on above: Order Comment: TEST CBC AND DIFFERENTIAL WAS CANCELLED, 10/28/2022 16:16 Performed By: #### V ANCU #### [facility] [address] [place] [address] % NEUTROPHIL Canceled Normal [facility] Comment on above: Order Comment: TEST CBC AND DIFFERENTIAL WAS CANCELLED, 10/28/2022 16:16 Performed By: #### V ANCU #### [facility] [address] [place] [address] BASOPHIL Canceled Normal [facility] Comment on above: Order Comment: TEST CBC AND DIFFERENTIAL WAS CANCELLED, 10/28/2022 16:16 Performed By: #### V ANCU #### [facility] [address] [place] [address] DIFFERENTIAL Canceled Normal [facility] Comment on above: Order Comment: TEST CBC AND DIFFERENTIAL WAS CANCELLED, 10/28/2022 16:16 Performed By: #### V ANCU #### [facility] [address] [place] [address] EOSINOPHIL Canceled Normal [facility] Comment on above: Order Comment: TEST CBC AND DIFFERENTIAL WAS CANCELLED, 10/28/2022 16:16 Performed By: #### V ANCU #### [facility] [address] [place] [address] HCT Canceled Normal [facility] Comment on above: Order Comment: TEST CBC AND DIFFERENTIAL WAS CANCELLED, 10/28/2022 16:16 Performed By: #### V ANCU #### [facility] [address] [place] [address] HGB Canceled Normal [facility] Comment on above: Order Comment: TEST CBC AND DIFFERENTIAL WAS CANCELLED, 10/28/2022 16:16 Performed By: #### V ANCU #### [facility] [address] [place] [address] LYMPHOCYTE Canceled Normal [facility] Comment on above: Order Comment: TEST CBC AND DIFFERENTIAL WAS CANCELLED, 10/28/2022 16:16 Performed By: #### V ANCU #### [facility] [address] [place] [address] MCHC Canceled Normal [facility] Comment on above: Order Comment: TEST CBC AND DIFFERENTIAL WAS CANCELLED, 10/28/2022 16:16 Performed By: #### V ANCU #### [facility] [address] [place] [address] MCV Canceled Normal [facility] Comment on above: Order Comment: TEST CBC AND DIFFERENTIAL WAS CANCELLED, 10/28/2022 16:16 Performed By: #### V ANCU #### [facility] [address] [place] [address] MONOCYTE Canceled Normal [facility] Comment on above: Order Comment: TEST CBC AND DIFFERENTIAL WAS CANCELLED, 10/28/2022 16:16 Performed By: #### V ANCU #### [facility] [address] [place] [address] NEUTROPHIL Canceled Normal [facility] Comment on above: Order Comment: TEST CBC AND DIFFERENTIAL WAS CANCELLED, 10/28/2022 16:16 Performed By: #### V ANCU #### [facility] [address] [place] [address] NUCLEATED RBC Canceled Normal [facility] Comment on above: Order Comment: TEST CBC AND DIFFERENTIAL WAS CANCELLED, 10/28/2022 16:16 Performed By: #### V ANCU #### [facility] [address] [place] [address] PLT Canceled Normal [facility] Comment on above: Order Comment: TEST CBC AND DIFFERENTIAL WAS CANCELLED, 10/28/2022 16:16 Performed By: #### V ANCU #### [facility] [address] [place] [address] RBC Canceled Normal [facility] Comment on above: Order Comment: TEST CBC AND DIFFERENTIAL WAS CANCELLED, 10/28/2022 16:16 Performed By: #### V ANCU #### [facility] [address] [place] [address] RDW-CV Canceled Normal [facility] Comment on above: Order Comment: TEST CBC AND DIFFERENTIAL WAS CANCELLED, 10/28/2022 16:16 Performed By: #### V ANCU #### [facility] [address] [place] [address] WBC Canceled Normal [facility] Comment on above: Order Comment: TEST CBC AND DIFFERENTIAL WAS CANCELLED, 10/28/2022 16:16 Performed By: #### V ANCU #### [facility] [address] 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 Patient Location [address] Drug Name: Bactrim DS 800 mg-160 mg oral tablet Instructions: 1 tab(s) orally 2 times a day STOP DATE 11/04/22 -.ADOD - .10/28 Meds to Beds .Patient Location [address] Drug Name: hydrOXYzine hydrochloride 25 mg oral tablet Instructions: 1 tab(s) orally every 6 hours, As needed, ITCHING -.ADOD - .10/28 Meds to Beds .Patient Location [address] Drug Name: loperamide 2 mg oral capsule Instructions: 1 cap(s) orally every 4 hours, As needed, Diarrhea -.ADOD - .10/28 Meds to Beds .Patient Location [address] Medications Deliveredsee above Medications Delivered Topatient; nurse Delivery Date/[id number] 11:43 Controlled Medications Given ToElizabeth Shanae Medications ReviewedReviewed medication timing, indication, and ADR with patient. Education TopicADR counseling; dosage, frequency, storage; medication indication; medication interactions Learnerpatient Barriers to Learningnone Methodverbal Outcome Evaluation2=meets goals/outcomes Allergy: Allergies Summary Allergy Allergen: penicillin Type: Drug Reaction: Hives/Urticaria Electronic Signatures: Aris Pugh ([facility]) (Signed 30-Oct-2022 07:56) Co-Signer: Discharge Meds, Allergy Hollis Archibald ([facility]) (Signed 28-Oct-2022 12:44) Authored: Discharge Meds, Allergy Last Updated: 30-Oct-2022 07:56 by Aris Pugh ([facility]) Normal [facility] Complete Blood Count + Diffe rentialon 10-28-2022 Basophils/100 WBC (Bld) 0.5 % 0.0 - 2.0 M [facility] Work Phone: Erythrocyte distribution width (RBC) [Ratio] 13.5 % See Below [facility]- [employer] Work Phone: Comment on above: Reference Range: 11. 5 - 14.5 Hematocrit (Bld) [Volume fraction] 35.2 % below low threshold See Below [facility] [employer] Work Phone: Comment on above: Reference Range: 36. 0 - 46.0 Hemoglobin (Bld) [Mass/Vol] 11.2 g/dL below low threshold See Below [facility] [employer] Work Phone: Comment on above: Reference Range: 12. 0 - 16.0 Lymphocytes/100 WBC (Bld) 8.7 % See Below [facility] Work Phone: Comment on above: Reference Range: 13. 0 - 44.0 MCHC (RBC) [Mass/Vol] 31.8 g/dL below low threshold See Below MGSliceMedicine- [employer] Work Phone: Comment on above: Reference Range: 32. 0 - 36.0 MCV (RBC) [Entitic vol] 85 fL 80 - 100 M Kusum Giang Work Phone: Monocytes/100 WBC (Bld) 8.7 % 2.0 - 10.0 M [employer] Work Phone: [phone] Neutrophils/100 WBC (Bld) 75.7 % See Below Jerod Giang Work Phone: Comment on above: Reference Range: 40. 0 - 80.0 Platelets (Bld) [#/Vol] 233 10*3/uL 150 - 450 -Ulices Ginag Work Phone: RBC (Bld) [#/Vol] 4.15 {x10E12/L} See Below -Ulices Giang Work Phone: Comment on above: Reference Range: 4.0 0 - 5.20 WBC (Bld) [#/Vol] 8.2 10*3/uL 4.4 - 11.3 [facility]ineSierra [facility] Work Phone: Complete Blood Count + Differential 0.04 {x10E9/L} See Below [facility] Work Phone: Comment on above: Reference Range: 0.0 0 - 0.10 Complete Blood Count + Differential 0.45 {x10E9/L} See Below -Ulices Giang Work Phone: Comment on above: Reference Range: 0.0 0 - 0.70 Complete Blood Count + Differential 0.72 {x10E9/L} below low threshold See Below [facility] Work Phone: Comment on above: Reference Range: 0.1 0 - 1.00 Reference Range: 1.2 0 - 4.80 Complete Blood Count + Differential 6.23 {x10E9/L} See Below [facility] Work Phone: Comment on above: Reference Range: 1.2 0 - 7.70 Complete Blood Count + Differential 5.5 % 0.0 - 6.0 [facility] Work Phone: Complete Blood Count + [...] sloughing. Objective Data: Objective Information: T PRBPMAPSpO2 [id number]/8292% Date/Time10/28 13: 13: 13: 13: 13:07 Range(36.1C - 39C ) (75 - 109 ) (16 - 19 ) (100 - 149 )/ (68 - 86 ) (91% - 97% ) Highest temp of 39 C was recorded at 10/28 11:31 Pain reported at 10/28 14:25: 6 = [...] Recent Lab Results: Results: CBC: 10/28/2022 16:30 \ Hgb / \ 11.2 L / WBC Plt 8.2 233 / Hct \ / 35.2 L \ RBC: 4.15 MCV: 85 Neutrophil %: 75.7 RFP: 10/28/2022 06:24 NA+ Cl- BUN / 139 104 10 / --------- Glucose ---- 85 K+ HCO3- Creat \ 3.9 26 1.39 H \ Calcium : 8.7Anion Gap : 13 Albumin [...] OSH. First full day of therapy at [facility] was on 10/21. MRSA swab collected here today. Would continue to treat w/ PO amox-clav once ready for d/c. If MRSA swab is p (more content not included)... Normal [facility] Daily Progress Note-Ophthalm yung 10-28-2022 Daily Progress Note-Ophthalmology Service: Ophthalmology Subjective Data: GRACIE BANUELOS is a 57 year old Female who is Hospital Day # 6. Objective Data: Objective Information: T PRBPMAPSpO2 [id number]/7793% Date/Time10/28 11: 11: 11: 11: 11:31 Range(36.1C [...] --------- Glucose ---- 85 K+ HCO3- Creat \ 3.9 26 1.39 H \ Calcium : 8.7Anion Gap : 13 Albumin [...] progressed. On 10/19/22 she presented to the [facility] and CT orbits showed findings concerning for right orbital cellulitis. WBC was reportedly 13.9, ESR 75, and CRP 42.6. She was prescribed clindamycin to take at home, but her pain only worsened and she presented to [facility] on 10/20/22 for further management. [...] CT Orbit Sella Inner, by report from [facility] shows: 1. Marked abnormality of the [...] which I personally reviewed, by report from [employer] shows Abnormal infiltration throughout the right retroantral and extraconal fat as well as the pterygopalatine fossa and diffusely throughout the right clinical trial coordinator space with asymmetry of the muscles of mastication. Additional mild enlargement of the right inferior and lateral rectus. These fi (more content not included)... Normal [facility] HEPATIC FUNCTION PANELon Albumin [Mass/Vol] 3.5 g/dL Normal 3.4 - 5.0 [facility] Comment on above: Performed By: #### C MP #### [facility] [address] [place] [address] ALP [Catalytic activity/Vol] 90 U/L Normal 33 - 110 [facility] Comment on above: Performed By: #### C MP #### [facility] [address] [place] [address] ALT [Catalytic activity/Vol] 23 U/L Normal 7 - 45 [facility] Comment on above: Result Comment: Gretta ents treated with Sulfasalazine may generate falsely decreased results for ALT. Performed By: #### C MP #### [facility] [address] [place] [address] AST [Catalytic activity/Vol] 23 U/L Normal 9 - 39 [facility] Comment on above: Performed By: #### C MP #### [facility] [address] [place] [address] Bilirubin [Mass/Vol] 0.2 mg/dL Normal 0.0 - 1.2 [facility] Comment on above: Performed By: #### C MP #### [facility] [address] [place] [address] Bilirubin.indirect [Mass/Vol] 0.1 mg/dL Normal 0.0 - 0.3 [facility] Comment on above: Performed By: #### C MP #### [facility] [address] [place] [address] Protein [Mass/Vol] 6.3 g/dL Low 6.4 - 8.2 [facility] Comment on above: Performed By: #### C MP #### [facility] [address] [place] [address] Hepatic Function Panelon Albumin BCP dye [Mass/Vol] 3.5 g/dL 3.4 - 5.0 [facility] Wilfrid [facility] Work Phone: [phone] ALP [Catalytic activity/Vol] 90 U/L 33 - 110 [facility] Work Phone: [phone] ALT With P-5'-P [Catalytic activity/Vol] 23 U/L 7 - 45 [facility] Wil[facility]id [facility] Work Phone: [phone] Comment on above: Patients treated wit h Sulfasalazine may generate falsely decreased results for ALT. AST With P-5'-P [Catalytic activity/Vol] 23 U/L 9 - 39 [facility] [employer] Work Phone: [phone] Bilirubin [Mass/Vol] 0.2 mg/dL 0.0 - 1.2 [facility] [employer] Work Phone: [phone] Bilirubin.direct [Mass/Vol] 0.1 mg/dL 0.0 - 0.3 [facility] Work Phone: [phone] Protein [Mass/Vol] 6.3 g/dL below low threshold 6.4 - 8.2 [facility] Wilfrid [facility]ang Work Phone: [phone] RENAL FUNCTION PANELon 10-28 Albumin [Mass/Vol] 3.4 g/dL Normal 3.4 - 5.0 [facility] Comment on above: Performed By: #### C MP #### [facility] [address] [place] Anion gap [Moles/Vol] 13 mmol/L Normal 10 - 20 [facility] Comment on above: Performed By: #### C MP #### [facility] [address] [place] [address] Calcium [Mass/Vol] 8.7 mg/dL Normal 8.6 - 10.6 [facility] Comment on above: Performed By: #### C MP #### [facility] [address] [place] [address] Chloride [Moles/Vol] 104 mmol/L Normal 98 - 107 [facility] Comment on above: Performed By: #### C MP #### [facility] [address] [place] [address] Creatinine [Mass/Vol] 1.39 mg/dL High 0.50 - 1.05 [facility] Comment on above: Performed By: #### C MP #### [facility] [address] [place] [address] GFR/1.73 sq M.predicted among non-blacks MDRD (S/P/Bld) [Vol rate/Area] 44 mL/min/{1.73_m2} Abnormal >90 [facility] Comment on above: Result Comment: CALC ULATIONS OF ESTIMATED GFR ARE PERFORMED USING THE 2020 CKD-EPI STUDY REFIT EQUATION WITHOUT THE RACE VARIABLE FOR THE IDMS-TRACEABLE CREATININE METHODS. https://jasn.asnjournals.org/content/early//ASN.2020 506650 Performed By: #### C MP #### [facility] [address] [place] [address] Glucose [Mass/Vol] 85 mg/dL Normal 74 - 99 [facility] Comment on above: Performed By: #### C MP #### [facility] [address] [place] [address] HCO3 (Bld) [Moles/Vol] 26 mmol/L Normal 21 - 32 [facility] Comment on above: Performed By: #### C MP #### [facility] [address] [place] [address] Phosphate [Mass/Vol] 4.1 mg/dL Normal 2.5 - 4.9 [facility] Comment on above: Result Comment: The performance characteristics of phosphorus testing in heparinized plasma have been validated by the individual laboratory site where testing is performed. Testing on heparinized plasma is not approved by the FDA; however, such approval is not necessary. Performed By: #### C MP #### [facility] [address] [place] [address] Potassium [Moles/Vol] 3.9 mmol/L Normal 3.5 - 5.3 [facility] Comment on above: Performed By: #### C MP #### [facility] [address] [place] [address] Sodium [Moles/Vol] 139 mmol/L Normal 136 - 145 [facility] Comment on above: Performed By: #### C MP #### [facility] [address] [place] [address] Urea nitrogen [Mass/Vol] 10 mg/dL Normal 6 - 23 [facility] Comment on above: Performed By: #### C MP #### [facility] [address] [place] [address] Renal Function Panelon 10-28 Albumin BCP dye [Mass/Vol] 3.4 g/dL 3.4 - 5.0 [facility]id [facility] Work Phone: Anion gap [Moles/Vol] 13 mmol/L 10 - 20 [facility]id [facility] Work Phone: Calcium [Mass/Vol] 8.7 mg/dL 8.6 - 10.6 [facility]- Wilfrid Giang Work Phone: Chloride [Moles/Vol] 104 mmol/L 98 - 107 [facility] Wilfrid Giang Work Phone: CO2 [Moles/Vol] 26 mmol/L 21 - 32 [facility] ne- Wilfrid Giang Work Phone: Creatinine [Mass/Vol] 1.39 mg/dL above high threshold See Below [facility]icineSierra [facility] Work Phone: Comment on above: Reference Range: 0.5 0 - 1.05 Glucose [Mass/Vol] 85 mg/dL 74 - 99 [facility] [employer]juliana[employer] GamingWilfrid Reichhold Work Phone: Phosphate [Mass/Vol] 4.1 mg/dL 2.5 - 4.9 [facility] Wilfrid Giang Work Phone: Comment on above: The performance bruce acteristics of phosphorus testing in heparinized plasma have been validated by the individual laboratory site where testing is performed. Testing on heparinized plasma is not approved by the FDA; however, such approval is not necessary. Potassium [Moles/Vol] 3.9 mmol/L 3.5 - 5.3 [facility] Wilfrid Reichhold Work Phone: Sodium [Moles/Vol] 139 mmol/L 136 - 145 [facility] [employer] Wilfrid Giang Work Phone: Urea nitrogen [Mass/Vol] 10 mg/dL 6 - 23 [facility] Wilfrid Giang Work Phone: Renal Function Panel 44 {mL/min/1.73m2} Abnormal >90 [facility] Wilfrid Giang Work Phone: Comment on above: CALCULATIONS OF PAVAN MATED GFR ARE PERFORMED USING THE 2020 CKD-EPI STUDY REFIT EQUATION WITHOUT THE RACE VARIABLE FOR THE IDMS-TRACEABLE CREATININE METHODS.https://jasn.asnjournals.org/content/early/ ASN.4417942281 UA MICROSCOPICon 10-28-2022 RBC 2 /HPF Normal 0-5 [facility] Comment on above: Performed By: #### C MP #### [facility] [address] [place] [address] SQUAMOUS EPITH. CELLS 7 /HPF Normal [facility] Comment on above: Performed By: #### C MP #### [facility] [address] [place] [address] WBC 2 /HPF Normal 0-5 [facility] Comment on above: Performed By: #### C MP #### [facility] [address] [place] [address] URINALYSIS WITH CULTURE IF I NDICATEDon 10-28-2022 Appearance (U) HAZY Normal CLEAR [facility] Comment on above: Performed By: #### C MP #### [facility] [address] [place] [address] Bilirubin Ql (U) Negative Normal NEGATIVE [facility] [place] Comment on above: Performed By: #### C MP #### [facility] [address] [place] [address] Color (U) YELLOW Normal STRAW,YELLOW [facility] Comment on above: Performed By: #### C MP #### [facility] [address] [place] [address] Glucose Ql (U) Negative Normal NEGATIVE [facility] Comment on above: Performed By: #### C MP #### [facility] [address] [place] [address] Hemoglobin Ql (U) Negative Normal NEGATIVE [facility] Comment on above: Performed By: #### C MP #### [facility] [address] [place] [address] Ketones Ql (U) Negative Normal NEGATIVE [facility] Comment on above: Performed By: #### C MP #### [facility] [address] [place] [address] Leukocyte esterase Test strip Ql (U) Negative Normal NEGATIVE [facility] Comment on above: Performed By: #### C MP #### [facility] [address] [place] [address] Nitrite Ql (U) Negative Normal NEGATIVE [facility] Comment on above: Performed By: #### C MP #### [facility] [address] [place] [address] pH (U) 6.0 [pH] Normal 5.0 - 8.0 [facility] Comment on above: Performed By: #### C MP #### [facility] [address] [place] [address] Protein Ql (U) 30 (1+) Abnormal NEGATIVE [facility] Comment on above: Performed By: #### C MP #### [facility] [address] [place] [address] Specific gravity (U) [Rel density] 1.020 Normal 1.005 - 1.035 [facility] Comment on above: Performed By: #### C MP #### [facility] [address] [place] [address] Urobilinogen (U) [Mass/Vol] mg/dL Normal 0.0 - 1.9 [facility] Comment on above: Performed By: #### C MP #### [facility] [address] [place] [address] Color (U) YELLOW See Below [facility] Wilfrid Giang Work Phone: [phone] Comment on above: Reference Range: STR AW,YELLOW Glucose Ql (U) Negative NEGATIVE [facility]- Wilfrid Giang Work Phone: [phone] Ketones Ql (U) Negative NEGATIVE [facility] Wilfrid Giang Work Phone: [phone] Leukocyte esterase Test strip Ql (U) Negative NEGATIVE [facility] Wilfrid Giang Work Phone: pH (U) 6.0 [pH] 5.0 - 8.0 [facility] Wilfrid [facility]ang Work Phone: [phone] Protein (U) [Mass/Vol] 30 (1+) Abnormal NEGATIVE [facility] Wilfrid Giang Work Phone: [phone] RBC (U) [#/Vol] Negative NEGATIVE [facility] ne- Wilfrid Giang Work Phone: [phone] Specific gravity (U) [Rel density] 1.020 1 See Below [facility] Wilfrid Giang Work Phone: [phone] Comment on above: Reference Range: 1.0 05 - 1.035 URINALYSIS WITH CULTURE IF INDICATED Negative NEGATIVE [facility] Wilfrid Giang Work Phone: [phone] URINALYSIS WITH CULTURE IF INDICATED <2.0 0.0 - 1.9 [facility] Wilfrid [facility] Work Phone: [phone] URINALYSIS WITH CULTURE IF INDICATED HAZY CLEAR [facility] Wilfrid Giang Work Phone: [phone] Urinalysis, Microscopicon Urinalysis, Microscopic 7 {/HPF} M [facility] Work Phone: Urinalysis, Microscopic 2 {/HPF} 0-5 M [facility] Work Phone: VANCOMYCINon 10-28-2022 VANCOMYCIN 13.7 ug/mL Normal [facility] Comment on above: Result Comment: .The rapeutic Ranges: Peak: All ages: 30.0-40.0 ug/mL . Trough: Age <18y: 5.0-10.0 ug/mL . Age >/= 18y: 5.0-20.0 ug/mL . Vancomycin trough concentrations drawn immediately prior to the next dose at steady-state are preferred for monitoring patients treated with vancomycin. Ref.: Am J Health-Syst Pharm 66: 83-98, 2008. Performed By: #### C #### [facility] [address] [place] [address] ANCA-ASSOCIATED VASCULITIS P ROFILE [ANCA,MPO,PR3]on 10-27-2022 Myeloperoxidase Ab Qn (S) 0 AU/mL 0-19 [facility] Work Phone: Comment on above: INTERPRETIVE INFORMA TION: Myeloperoxidase Abs, IgG 19 AU/mL or Less ......... Negative 20-25 AU/mL .............. Equivocal 26 AU/mL or Greater ...... PositiveApproximately 90% of patients with a P-ANCA pattern by IFA have antibodies specific for MPO. Proteinase 3 Ab Qn (S) 0 AU/mL 0-19 [facility] Work Phone: Comment on above: INTERPRETIVE INFORMA TION: Serine Proteinase 3, IgG 19 AU/mL or Less ........ Negative 20-25 AU/mL ............. Equivocal 26 AU/mL or Greater ..... PositiveApproximately 85% of patients with a C-ANCA pattern by IFA have antibodies specific for PR3. ANCA-ASSOCIATED VASCULITIS PROFILE [ANCA,MPO,PR3] Not detected See Below [facility] Wilfrid Giang Work Phone: Comment on above: Reference Range: Non e DetectedINTERPRETIVE INFORMATION: ANCA IFA Pattern Neutrophil Cytoplasmic Antibodies (C-ANCA = granular cytoplasmic staining, P-ANCA = perinuclear staining) are found in the serum of over 90 percent of patients with certain necrotizing systemic vasculitides, and usually in less than 5 percent of patients with collagen vascular disease or arthritis.Performed By: [employer] [place] [id number] Director: Kyle Hyatt MD, PhD ANCA-ASSOCIATED VASCULITIS PROFILE [ANCA,MPO,PR3] <1:20 <1:20 [facility] Wilfrid Giang Work Phone: CBC AND DIFFERENTIALon 10-27 % AUTOMATED IMMATURE GRAN 0.7 % Normal 0.0 - 0.9 [facility] Comment on above: Result Comment: Iram ture Granulocyte Count (IG) includes promyelocytes, myelocytes and metamyelocytes but does not include bands. Percent differential counts (%) should be interpreted in the context of the absolute cell counts (cells/L). Performed By: #### U A #### [facility] [address] [place] [address] Basophils (Bld) [#/Vol] 0.05 10*3/uL Normal 0.00 - 0.1 0 [facility] Comment on above: Performed By: #### U A #### [facility] [address] [place] [address] Basophils/100 WBC (Bld) 0.5 % Normal 0.0 - 2.0 U [facility] Comment on above: Performed By: #### U A #### [facility] [address] [place] [address] Eosinophils (Bld) [#/Vol] 0.99 10*3/uL High 0.00 - 0.70 [facility] Comment on above: Performed By: #### U A #### [facility] [address] [place] [address] Eosinophils/100 WBC (Bld) 10.6 % Normal 0.0 - 6.0 [facility] Comment on above: Performed By: #### U A #### [facility] [address] [place] [address] Erythrocyte distribution width (RBC) [Ratio] 13.3 % Normal 11.5 - 14.5 [facility] Comment on above: Performed By: #### U A #### [facility] [address] [place] [address] Hematocrit (Bld) [Volume fraction] 35.9 % Low 36.0 - 46.0 [facility] Comment on above: Performed By: #### U A #### [facility] [address] [place] [address] Hemoglobin (Bld) [Mass/Vol] 11.7 g/dL Low 12.0 - 16.0 [facility] Comment on above: Performed By: #### U A #### [facility] [address] [place] [address] Lymphocytes (Bld) [#/Vol] 1.29 10*3/uL Normal 1.20 - 4.80 [facility] Comment on above: Performed By: #### U A #### [facility] [address] [place] [address] Lymphocytes/100 WBC (Bld) 13.8 % Normal 13.0 - 44.0 [facility] Comment on above: Performed By: #### U A #### [facility] [address] [place] [address] MCHC (RBC) [Mass/Vol] 32.6 g/dL Normal 32.0 - 36.0 [facility] Comment on above: Performed By: #### U A #### [facility] [address] [place] [address] MCV (RBC) [Entitic vol] 82 fL Normal 80 - 100 [facility] Comment on above: Performed By: #### U A #### [facility] [address] [place] [address] Monocytes (Bld) [#/Vol] 1.18 10*3/uL High 0.10 - 1.0 0 [facility] Comment on above: Performed By: #### U A #### [facility] [address] [place] [address] Monocytes/100 WBC (Bld) 12.6 % Normal 2.0 - 10.0 [facility] Comment on above: Performed By: #### U A #### [facility] [address] [place] [address] Neutrophils (Bld) [#/Vol] 5.78 10*3/uL Normal 1.20 - 7.70 [facility] Comment on above: Performed By: #### U A #### [facility] [address] [place] [address] Neutrophils/100 WBC (Bld) 61.8 % Normal 40.0 - 80.0 [facility] Comment on above: Performed By: #### U A #### [facility] [address] [place] [address] NUCLEATED RBC 0.0 /100 WBC Normal 0.0-0.0 [facility] Comment on above: Performed By: #### U A #### [facility] [address] [place] [address] Platelets (Bld) [#/Vol] 318 10*3/uL Normal 150 - 450 [facility] Comment on above: Performed By: #### U A #### [facility] [address] [place] [address] RBC 4.40 x10E12/L Normal 4.00 - 5.20 [facility] Comment on above: Performed By: #### U A #### [facility] [address] [place] [address] WBC (Bld) [#/Vol] 9.4 10*3/uL Normal 4.4 - 11.3 [facility] Comment on above: Performed By: #### U A #### [facility] [address] [place] [address] COMPREHENSIVE PANELon 2022 Albumin [Mass/Vol] 3.5 g/dL Normal 3.4 - 5.0 [facility] Comment on above: Performed By: #### U A #### [facility] [address] [place] [address] ALP [Catalytic activity/Vol] 109 U/L Normal 33 - 110 [facility] Comment on above: Performed By: #### U A #### [facility] [address] [place] [address] ALT [Catalytic activity/Vol] 20 U/L Normal 7 - 45 [facility] Comment on above: Result Comment: Gretta ents treated with Sulfasalazine may generate falsely decreased results for ALT. Performed By: #### U A #### [facility] [address] [place] [address] Anion gap [Moles/Vol] 15 mmol/L Normal 10 - 20 [facility] Comment on above: Performed By: #### U A #### [facility] [address] [place] [address] AST [Catalytic activity/Vol] 20 U/L Normal 9 - 39 [facility] Comment on above: Performed By: #### U A #### [facility] [address] [place] [address] Bilirubin [Mass/Vol] 0.3 mg/dL Normal 0.0 - 1.2 [facility] Comment on above: Performed By: #### U A #### [facility] [address] [place] [address] Calcium [Mass/Vol] 9.2 mg/dL Normal 8.6 - 10.6 [facility] Comment on above: Performed By: #### U A #### [facility] [address] [place] [address] Chloride [Moles/Vol] 102 mmol/L Normal 98 - 107 [facility] Comment on above: Performed By: #### U A #### [facility] [address] [place] [address] Creatinine [Mass/Vol] 1.53 mg/dL High 0.50 - 1.05 [facility] Comment on above: Performed By: #### U A #### [facility] [address] [place] [address] GFR/1.73 sq M.predicted among non-blacks MDRD (S/P/Bld) [Vol rate/Area] 39 mL/min/{1.73_m2} Abnormal >90 [facility] Comment on above: Result Comment: CALC ULATIONS OF ESTIMATED GFR ARE PERFORMED USING THE 2020 CKD-EPI STUDY REFIT EQUATION WITHOUT THE RACE VARIABLE FOR THE IDMS-TRACEABLE CREATININE METHODS. https://jasn.asnjournals.org/content/early/ASN.2020 794627 Performed By: #### U A #### [facility] [address] [place] [address] Glucose [Mass/Vol] 91 mg/dL Normal 74 - 99 [facility] Comment on above: Performed By: #### U A #### [facility] [address] [place] [address] HCO3 (Bld) [Moles/Vol] 24 mmol/L Normal 21 - 32 [facility] Comment on above: Performed By: #### U A #### [facility] [address] [place] [address] Potassium [Moles/Vol] 4.4 mmol/L Normal 3.5 - 5.3 [facility] Comment on above: Performed By: #### U A #### [facility] [address] [place] [address] Protein [Mass/Vol] 6.6 g/dL Normal 6.4 - 8.2 [facility] Comment on above: Performed By: #### U A #### [facility] [address] [place] [address] Sodium [Moles/Vol] 137 mmol/L Normal 136 - 145 [facility] Comment on above: Performed By: #### U A #### [facility] [address] [place] [address] Urea nitrogen [Mass/Vol] 12 mg/dL Normal 6 - 23 [facility] Comment on above: Performed By: #### U A #### [facility] [address] [place] [address] Complete Blood Count + Diffe yamil 10-27-2022 Basophils/100 WBC (Bld) 0.5 % 0.0 - 2.0 M [facility]es [facility]ang Work Phone: Erythrocyte distribution width (RBC) [Ratio] 13.3 % See Below [facility] Work Phone: Comment on above: Reference Range: 11. 5 - 14.5 Hematocrit (Bld) [Volume fraction] 35.9 % below low threshold See Below [facility] Work Phone: [phone] Comment on above: Reference Range: 36. 0 - 46.0 Hemoglobin (Bld) [Mass/Vol] 11.7 g/dL below low threshold See Below Ulices Giang Work Phone: [phone] Comment on above: Reference Range: 12. 0 - 16.0 Lymphocytes/100 WBC (Bld) 13.8 % See Below [facility] Work Phone: [phone] Comment on above: Reference Range: 13. 0 - 44.0 MCHC (RBC) [Mass/Vol] 32.6 g/dL See Below [facility] Work Phone: Comment on above: Reference Range: 32. 0 - 36.0 MCV (RBC) [Entitic vol] 82 fL 80 - 100 M KayleyUlices Giang Work Phone: [phone] Monocytes/100 WBC (Bld) 12.6 % 2.0 - 10.0 M [facility] Work Phone: [phone] Neutrophils/100 WBC (Bld) 61.8 % See Below [facility] Work Phone: Comment on above: Reference Range: 40. 0 - 80.0 Platelets (Bld) [#/Vol] 318 10*3/uL 150 - 450 Jerod Giang Work Phone: [phone] RBC (Bld) [#/Vol] 4.40 {x10E12/L} See Below Slice[facility]lic[facility]ang Work Phone: Comment on above: Reference Range: 4.0 0 - 5.20 WBC (Bld) [#/Vol] 9.4 10*3/uL 4.4 - 11.3 [facility]- Wilfrid Giang Work Phone: Complete Blood Count + Differential 0.05 {x10E9/L} See Below [facility] Work Phone: Comment on above: Reference Range: 0.0 0 - 0.10 Complete Blood Count + Differential 0.99 {x10E9/L} above high threshold See Below [facility]MedicineSierra [facility]ang Work Phone: Comment on above: Reference Range: 0.0 0 - 0.70 Complete Blood Count + Differential 1.18 {x10E9/L} above high threshold See Below [facility] Work Phone: Comment on above: Reference Range: 0.1 0 - 1.00 Complete Blood Count + Differential 1.29 {x10E9/L} See Below [facility] Work Phone: Comment on above: Reference Range: 1.2 0 - 4.80 Complete Blood Count + Differential 5.78 {x10E9/L} See Below [facility] Work Phone: Comment on above: Reference Range: 1.2 0 - 7.70 Complete Blood Count + Differential 10.6 % 0.0 - 6.0 -Ulices Giang Work Phone: Complete Blood Count + Differential 0.7 % 0.0 - 0.9 [facility] Work Phone: Comment on above: Immature [...] improved. Objective Data: Objective Information: T PRBPMAPSpO2 [id number]/7893% Date/Time10/27 14: 14: 14: 14: 14:12 Range(36.2C [...] Recent Lab Results: Results: CBC: 10/27/2022 08:24 \ Hgb / \ 11.7 L / WBC Plt 9.4 318 / Hct \ / 35.9 L \ RBC: 4.40 MCV: 82 Neutrophil %: 61.8 CMP: 10/27/2022 08:24 NA+ Cl- BUN / 137 102 12 / --------- Glucose ---- 91 K+ HCO3- Creat \ 4.4 24 1.53 H \ \ T Bili / \ 0.3 / AST x ---- x ALT 20 x ---- x 20 / Alk P \ / 109 \ Calcium : 9.2 Anion Gap : 15 [...] OSH. First full day of therapy at [facility] was on 10/21. MRSA swab collected here today. Would continue to treat w/ PO amox-clav once ready for d/c. If MRSA swab is positive, can transition or change to TMP-SMX. #CHUY Baseline <1, Cr 1.5. Could be combination of vanc and pip-tazo; Cr currently stab (more content not included)... Normal [facility] Daily Progress Note-Medicine on 10-27-2022 [...] lid. Objective Data: Objective Information: T PRBPMAPSpO2 [id number]/8297% Date/Time10/27 4: 4: 4: 4: 4:29 Range(36.3C - 36.6C ) (75 - 96 ) (16 - 18 ) (136 - 150 )/ (76 - 97 ) (93% - 97% ) Pain reported at 1/30 0:25: 7 = Severe Physical Exam by [...] Glucose ---- 124 H K+ HCO3- Creat \ 4.1 24 1.57 H \ Calcium : 9.2Anion Gap : 14 Albumin [...] that it started the day she left [facility]. C. diff work up at [facility] came back negative - Likely due to Abx - Started on Immodium as needed - Will consider C diff PCR if diarrhea continues (more content not included)... Normal [facility] Daily Progress Note-Ophthalm ologyon 10-27-2022 Daily Progress Note-Ophthalmology Service: Ophthalmology Subjective Data: GRACIE BANUELOS is a 57 year old Female who is Hospital Day # 5. Objective Data: Objective Information: T PRBPMAPSpO2 [id number]/8297% Date/Time10/27 4: 4: 4: 4: 4:29 Range(36.3C - 36.6C ) (75 - 96 ) (16 - 18 ) (136 - 150 )/ (76 - 97 ) (93% - 97% ) Pain reported at 10/27 9:14: 4 = Moderate Recent Lab Results: Results: CBC: 10/27/2022 08:24 \ Hgb / \ 11.7 L / WBC Plt 9.4 318 / Hct \ / 35.9 L \ RBC: 4.40 MCV: 82 Neutrophil %: 61.8 CMP: 10/27/2022 08:24 NA+ Cl- BUN / 137 102 12 / --------- Glucose ---- 91 K+ HCO3- Creat \ 4.4 24 1.53 H \ \ T Bili / \ 0.3 / AST x ---- x ALT 20 x ---- x 20 / Alk P \ / 109 \ Calcium : 9.2 Anion Gap : 15 Albumin : 3.5 T Protein : 6.6 RFP: 10/26/2022 11:30 NA+ Cl- BUN / 136 102 15 / --------- Glucose ---- 124 H K+ HCO3- Creat \ 4.1 24 1.57 H \ Calcium : 9.2Anion Gap : 14 Albumin [...] progressed. On 10/19/22 she presented to the [facility] and CT orbits showed findings concerning for right orbital cellulitis. WBC was reportedly 13.9, ESR 75, and CRP 42.6. She was prescribed clindamycin to take at home, but her pain only worsened and she presented to [facility] on 10/20/22 for further management. [...] CT Orbit Sella Inner, by report from [facility] shows: 1. Marked abnormality of the soft [...] orbit. 5. (more content not included)... Normal [facility] EMR ADDONon 10-27-2022 ADDON CONFIRMATION REQUEST REC'D Normal [facility] Comment on above: Performed By: #### U A #### [facility] [address] [place] [address] GLUCOSE-POCTon 10-27-2022 Glucose [Mass/Vol] 100 mg/dL High 74 - 99 [facility] Comment on above: Performed By: #### U A #### [facility] [address] [place] [address] Laboratory - Chemistry and C hemistry - challengeon 10-27-2022 Potassium (U) [Moles/Vol] 6 mmol/L See Below [facility] Wilfrid Giang Work Phone: Comment on above: Reference Range: Not Established Potassium/Creatinine (U) [Molar ratio] 22 {mmol/g_Creat} See Below [facility] Wilfrid Giang Work Phone: [phone] Comment on above: Reference Range: Not Established Sodium (U) [Moles/Vol] 18 mmol/L See Below [facility] Wilfrid Giang Work Phone: [phone] Comment on above: Reference Range: Not Established Sodium/Creatinine (U) [Ratio] 67 {mmol/g_Creat} See Below [facility] Wilfrid Giang Work Phone: [phone] Comment on above: Reference Range: Not Established Glucose [Mass/Vol] 100 mg/dL above high threshold 74 - 99 [facility] Wilfrid Giang Work Phone: [phone] Albumin BCP dye [Mass/Vol] 3.5 g/dL 3.4 - 5.0 [facility] Wilfrid Lynn Work Phone: [phone] ALP [Catalytic activity/Vol] 109 U/L 33 - 110 [facility] Work Phone: [phone] ALT With P-5'-P [Catalytic activity/Vol] 20 U/L 7 - 45 [facility] Work Phone: [phone] Comment on above: Patients treated wit h Sulfasalazine may generate falsely decreased results for ALT. Anion gap [Moles/Vol] 15 mmol/L 10 - 20 [facility] Wilfrid Lynn Work Phone: [phone] AST With P-5'-P [Catalytic activity/Vol] 20 U/L 9 - 39 [facility] Work Phone: [phone] Bilirubin [Mass/Vol] 0.3 mg/dL 0.0 - 1.2 [facility] Work Phone: [phone] Calcium [Mass/Vol] 9.2 mg/dL 8.6 - 10.6 [facility] Work Phone: Chloride [Moles/Vol] 102 mmol/L 98 - 107 [facility] edicineSierra Giang Work Phone: CO2 [Moles/Vol] 24 mmol/L 21 - 32 [facility] neSierra Giang Work Phone: Creatinine [Mass/Vol] 1.53 mg/dL above high threshold See Below [facility] Work Phone: Comment on above: Reference Range: 0.5 0 - 1.05 Glucose [Mass/Vol] 91 mg/dL 74 - 99 [facility] rigoberto Giang Work Phone: Potassium [Moles/Vol] 4.4 mmol/L 3.5 - 5.3 MG- Ulices [facility]ang Work Phone: Protein [Mass/Vol] 6.6 g/dL 6.4 - 8.2 [facility] rigoberto Giang Work Phone: Sodium [Moles/Vol] 137 mmol/L 136 - 145 [facility] rigoberto Giang Work Phone: Urea nitrogen [Mass/Vol] 12 mg/dL 6 - 23 MGNathalie Giang Work Phone: MRSA Screenon 10-27-2022 Staphylococcus sp identified Org specific cx Nom (Unsp spec) Jerod Giang Work Phone: No Panel Informationon 10-27 39 {mL/min/1.73m2} Abnormal >90 [facility] rigoberto Giang Work Phone: Comment on above: CALCULATIONS OF PAVAN MATED GFR ARE PERFORMED USING THE 2020 CKD-EPI STUDY REFIT EQUATION WITHOUT THE RACE VARIABLE FOR THE IDMS-TRACEABLE CREATININE METHODS.https://jasn.asnjournals.org/content/early/ ASN.9194141152 POTASSIUM, URINE SPOTon 09-30 POT/CREAT RATIO 22 mmol/g Creat Normal Not Established [facility] Comment on above: Performed By: #### U A #### [facility] [address] [place] [address] POTASSIUM,URINE SPOT 6 mmol/L Normal Not Established [facility] Comment on above: Performed By: #### U A #### [facility] [address] [place] [address] SODIUM, URINE SPOTon 023 CREATININE,URINE 27.0 mg/dL Normal 20.0 - 320.0 [facility] Comment on above: Performed By: #### C MP #### [facility] [address] [place] [address] Performed By: #### U A #### [facility] [address] [place] [address] Sodium (U) [Moles/Vol] 18 mmol/L Normal Not Established [facility] Comment on above: Performed By: #### C MP #### [facility] [address] [place] [address] SODIUM/CREAT RATIO 67 mmol/g Creat Normal Not Established [facility] Comment on above: Performed By: #### C MP #### [facility] [address] [place] [address] STAPH/MRSA SCREENon 10-27-19 STAPH/MRSA SCREEN PATIENT: FERNIE BANUELOS LOCATION: [place] [address] BILL#: [id number] : 61 AGE: SEX: F ORDERED BY: JUSTYN RICHTER SOURCE: ANTERIOR NARES COLLECTED: 10/27/22 15:12 ANTIBIOTICS AT DEB.: RECEIVED : 10/27/22 17:38 SITE: Nares R E S U L T S STAPH/MRSA SCREEN FINAL 10/29/22 11:04 NO Staphylococcus aureus ISOLATED. Normal [facility] Comment on above: Performed By: #### S TAPH #### [facility] [address] [place] [address] T-SPOT TBon 10-27-2022 NIL[NEG]CONTROL SPOT COUNT Passed Normal [facility] Comment on above: Performed By: #### V ANCU #### [facility] [address] [place] [id number] PANEL A SPOT COUNT 0 Normal [facility] Comment on above: Performed By: #### V ANCU #### [facility] [address] [place] PANEL B SPOT COUNT 0 Normal [facility] Comment on above: Performed By: #### V ANCU #### [facility] [address] [place] [address] POS CONTROL SPOT COUNT Passed Normal [facility] Comment on above: Performed By: #### V ANCU #### [facility] [address] [place] [id number] T-SPOT.TB INTERP Negative Normal Normal Value: Negative [facility] Comment on above: Result Comment: [...] test. Performed By: #### V ANCU #### [facility] [address] [place] [address] TOTAL PROTEIN, URINE SPOTon 10-27-2022 T. PROTEIN/CREAT RATIO 0.19 mg/mg Creat High 0.00 - 0.17 [facility] Comment on above: Performed By: #### C MP #### [facility] [address] [place] [address] TOTAL PROT,URINE SPOT 5 mg/dL Normal 5 - 24 [facility] Comment on above: Performed By: #### C MP #### [facility] [address] [place] [address] Telephone Encounteron 2022 Preparer Authentication Interface Message Text Ynes from called requesting a 2 week follow appointment for this pt. Pt is being discharged today for eye pain. Pt was recently seen on 10/22/2022. Where should I schedule this pt ? Thank you Sarah Voss [employer] [facility] Total Protein, Urine Spoton 10-27-2022 Creatinine (U) [Mass/Vol] 27.0 mg/dL See Below [employer] Work Phone: Comment on above: Reference Range: 20. 0 - 320.0 Protein (U) [Mass/Vol] 5 mg/dL 5 - 24 [employer] Work Phone: Protein/Creatinine (U) [Ratio] 0.19 {mg/mg_Creat} above high threshold See Below [employer] Work Phone: Comment on above: Reference Range: 0.0 0 - 0.17 URINALYSISon 10-27-2022 Appearance (U) CLEAR Normal CLEAR [facility] Comment on above: Performed By: #### U A #### [facility] [address] [place] [address] Bilirubin Ql (U) Negative Normal NEGATIVE [facility] Comment on above: Performed By: #### U A #### [facility] [address] [place] [address] Color (U) STRAW Normal STRAW,YELLOW [facility] Comment on above: Performed By: #### U A #### [facility] [address] [place] [address] Glucose Ql (U) 50 (TRACE) Abnormal NEGATIVE [facility] Comment on above: Performed By: #### U A #### [facility] [address] [place] [address] Hemoglobin Ql (U) Negative Normal NEGATIVE [facility] Comment on above: Performed By: #### U A #### [facility] [address] [place] [address] Ketones Ql (U) Negative Normal NEGATIVE [facility] Comment on above: Performed By: #### U A #### [facility] [address] [place] [address] Leukocyte esterase Test strip Ql (U) Negative Normal NEGATIVE [facility] Comment on above: Performed By: #### U A #### [facility] [address] [place] [address] Nitrite Ql (U) Negative Normal NEGATIVE [facility] Comment on above: Performed By: #### U A #### [facility] [address] [place] [address] pH (U) 6.0 [pH] Normal 5.0 - 8.0 [facility] Comment on above: Performed By: #### U A #### [facility] [address] [place] [address] Protein Ql (U) Negative Normal NEGATIVE [facility] Comment on above: Performed By: #### U A #### [facility] [address] [place] [address] Specific gravity (U) [Rel density] 1.006 Normal 1.005 - 1.035 [facility] Comment on above: Performed By: #### U A #### [facility] [address] [place] [address] Urobilinogen (U) [Mass/Vol] mg/dL Normal 0.0 - 1.9 [facility] Comment on above: Performed By: #### U A #### [facility] [address] [place] [address] Urinalysison 10-27-2022 Color (U) STRAW See Below [facility]- Wilfrid Giang Work Phone: Comment on above: Reference Range: STR AW,YELLOW Glucose Ql (U) 50 (TRACE) Abnormal NEGATIVE [facility]Medicin e- Wilfrid Giang Work Phone: Ketones Ql (U) Negative NEGATIVE [facility] e- Wilfrid Igang Work Phone: Leukocyte esterase Test strip Ql (U) Negative NEGATIVE [facility]- Wilfrid Giang Work Phone: pH (U) 6.0 [pH] 5.0 - 8.0 [facility]- Wilfrid Giang Work Phone: Protein (U) [Mass/Vol] Negative NEGATIVE MG -Ulices Giang Work Phone: [phone] RBC (U) [#/Vol] Negative NEGATIVE [facility]-Medici maria esther Giang Work Phone: [phone] Specific gravity (U) [Rel density] 1.006 1 See Below -Ulices Giang Work Phone: Comment on above: Reference Range: 1.0 05 - 1.035 Urinalysis Negative NEGATIVE MG-MedicineSierra Giang Work Phone: Urinalysis <2.0 0.0 - 1.9 -Ulices Giang Work Phone: [phone] Urinalysis CLEAR CLEAR Jerod Giang Work Phone: Vancomycin Level, Randomon 0 10-27-2022 Vancomycin [Mass/Vol] 13.7 ug/mL - Ulices Giang Work Phone: Comment on above: .Therapeutic Ranges: Peak: All ages: 30.0-40.0 ug/mL. Trough: Age <18y: 5.0-10.0 ug/mL. Age >/= 18y: 5.0-20.0 ug/mL. Vancomycin trough concentrations drawn immediately prior to the next dose at steady-state are preferred for monitoring patients treated with vancomycin. Ref.: Am J Health-Syst Pharm 66: 83-98, 2009. ANGIOTENSIN CONV ENZYMEon ANGIOTENSIN CONV ENZYME <10 Low 16-85 [facility] Comment on above: Result Comment: Perf ormed By: [employer] [address] [place] [id number] Glass Toughening Operator: Kyle Hyatt MD, PhD Performed By: #### U A #### [facility] [address] [place] [address] Daily Progress Note-Medicine on 10-26-2022 Daily Progress [...] diarrhea. Objective Data: Objective Information: T PRBPMAPSpO2 [id number]/9594% Date/Time10/26 3: 3: 3: 3: 3:37 Range(36.3C [...] Recent Lab Results: Results: CBC: 10/25/2022 09:24 \ Hgb / \ 11.5 L / WBC Plt 10.1 306 / Hct \ / 34.5 L \ RBC: 4.23 MCV: 82 RFP: 10/25/2022 09:24 NA+ Cl- BUN / 135 L 101 10 / --------- Glucose ---- 104 H K+ HCO3- Creat \ 3.7 25 1.09 H \ Calcium : 9.0Anion Gap : 13 Albumin [...] Ophthalmology/ENT; continue to follow recc - CHUY 10/30 vanc; dosing per pharmacy (trough this PM) [...] on antibiotics. (more content not included)... Normal [facility] Daily Progress Note-Ophthalm ologyon 10-26-2022 Daily Progress Note-Ophthalmology Service: Ophthalmology Subjective Data: GRACIE BANUELOS is a 57 year old Female who is Hospital Day # 4. Objective Data: Objective Information: T PRBPMAPSpO2 [id number]/7694% Date/Time10/26 3: 12: 12: 12: 3:37 Range(36.3C - 37.5C ) (75 - 102 ) (16 - 18 ) (106 - 145 )/ (68 - 95 ) (91% - 94% ) Highest temp of 37.5 C was recorded at 10/25 13:31 Pain reported at 10/26 11:41: 8 = Severe Recent Lab Results: Results: CBC: 10/24/2022 08:44 \ Hgb / \ 11.4 L / WBC Plt 10.5 322 / Hct \ / 34.0 L \ RBC: 4.16 MCV: 82 Neutrophil %: 63.8 CMP: 10/24/2022 08:44 NA+ Cl- BUN / 139 103 9 / --------- Glucose ---- 95 K+ HCO3- Creat \ 4.1 25 0.92 \ \ T Bili / \ 0.3 / AST x ---- x ALT 26 x ---- x 23 / Alk P \ / 107 \ Calcium : 9.2 Anion Gap : 15 [...] progressed. On 10/19/22 she presented to the [facility] and CT orbits showed findings concerning for right orbital cellulitis. WBC was reportedly 13.9, ESR 75, and CRP 42.6. She was prescribed clindamycin to take at home, but her pain only worsened and she presented to [facility] on 10/20/22 for further management. [...] CT Orbit Sella Inner, by report from [facility] shows: 1. Marked abnormality of the [...] which I personally reviewed, by report from [employer] shows Abnormal infiltration throughout the right retroan (more content not included)... Normal [facility] RENAL FUNCTION PANELon 10-26 Albumin [Mass/Vol] 3.9 g/dL Normal 3.4 - 5.0 [facility] Comment on above: Performed By: #### U A #### [facility] [address] [place] [address] Anion gap [Moles/Vol] 14 mmol/L Normal 10 - 20 [facility] Comment on above: Performed By: #### U A #### [facility] [address] [place] [address] Calcium [Mass/Vol] 9.2 mg/dL Normal 8.6 - 10.6 [facility] Comment on above: Performed By: #### U A #### [facility] [address] [place] [address] Chloride [Moles/Vol] 102 mmol/L Normal 98 - 107 [facility] Comment on above: Performed By: #### U A #### [facility] [address] [place] [address] Creatinine [Mass/Vol] 1.57 mg/dL High 0.50 - 1.05 [facility] Comment on above: Performed By: #### U A #### [facility] [address] [place] [address] GFR/1.73 sq M.predicted among non-blacks MDRD (S/P/Bld) [Vol rate/Area] 38 mL/min/{1.73_m2} Abnormal >90 [facility] Comment on above: Result Comment: CALC ULATIONS OF ESTIMATED GFR ARE PERFORMED USING THE 2020 CKD-EPI STUDY REFIT EQUATION WITHOUT THE RACE VARIABLE FOR THE IDMS-TRACEABLE CREATININE METHODS. https://jasn.asnjournals.org/content/early//ASN.2020 293822 Performed By: #### U A #### [facility] [address] [place] [address] Glucose [Mass/Vol] 124 mg/dL High 74 - 99 [facility] Comment on above: Performed By: #### U A #### [facility] [address] [place] [address] HCO3 (Bld) [Moles/Vol] 24 mmol/L Normal 21 - 32 [facility] Comment on above: Performed By: #### U A #### [facility] [address] [place] [address] Phosphate [Mass/Vol] 5.3 mg/dL High 2.5 - 4.9 [facility] Comment on above: Result Comment: The performance characteristics of phosphorus testing in heparinized plasma have been validated by the individual laboratory site where testing is performed. Testing on heparinized plasma is not approved by the FDA; however, such approval is not necessary. Performed By: #### U A #### [facility] [address] [place] [address] Potassium [Moles/Vol] 4.1 mmol/L Normal 3.5 - 5.3 [facility] Comment on above: Performed By: #### U A #### [facility] [address] [place] [address] Sodium [Moles/Vol] 136 mmol/L Normal 136 - 145 [facility] Comment on above: Performed By: #### U A #### [facility] [address] [place] [address] Urea nitrogen [Mass/Vol] 15 mg/dL Normal 6 - 23 [facility] Comment on above: Performed By: #### U A #### [facility] [address] [place] [address] Renal Function Panelon 10-26 Albumin BCP dye [Mass/Vol] 3.9 g/dL 3.4 - 5.0 [facility]- Wilfrid Giang Work Phone: Anion gap [Moles/Vol] 14 mmol/L 10 - 20 MG- Ulices Giang Work Phone: Calcium [Mass/Vol] 9.2 mg/dL 8.6 - 10.6 MG-Med icimaria esther Giang Work Phone: Chloride [Moles/Vol] 102 mmol/L 98 - 107 MG-M edicineSierra Giang Work Phone: CO2 [Moles/Vol] 24 mmol/L 21 - 32 MG-Medici neSierra Giang Work Phone: Creatinine [Mass/Vol] 1.57 mg/dL above high threshold See Below [facility]MedicineSierra Giang Work Phone: Comment on above: Reference Range: 0.5 0 - 1.05 Glucose [Mass/Vol] 124 mg/dL above high threshold 74 - 99 [facility]MedicineSierra [facility] Work Phone: Phosphate [Mass/Vol] 5.3 mg/dL above high threshold 2.5 - 4.9 MG-Ulices Giang Work Phone: Comment on above: The performance bruce acteristics of phosphorus testing in heparinized plasma have been validated by the individual laboratory site where testing is performed. Testing on heparinized plasma is not approved by the FDA; however, such approval is not necessary. Potassium [Moles/Vol] 4.1 mmol/L 3.5 - 5.3 MG- Ulices Giang Work Phone: Sodium [Moles/Vol] 136 mmol/L 136 - 145 MG-Med icimaria esther Giang Work Phone: Urea nitrogen [Mass/Vol] 15 mg/dL 6 - 23 MG-Ulices Giang Work Phone: [phone] Renal Function Panel 38 {mL/min/1.73m2} Abnormal >90 [facility]-Ulices Giang Work Phone: Comment on above: CALCULATIONS OF PAVAN MATED GFR ARE PERFORMED USING THE 2020 CKD-EPI STUDY REFIT EQUATION WITHOUT THE RACE VARIABLE FOR THE IDMS-TRACEABLE CREATININE METHODS.https://jasn.asnjournals.org/content// ASN.9248161121 VANCOMYCINon 10-26-2022 VANCOMYCIN 14.6 ug/mL Normal [facility] Comment on above: Result Comment: .The rapeutic Ranges: Peak: All ages: 30.0-40.0 ug/mL . Trough: Age <18y: 5.0-10.0 ug/mL . Age >/= 18y: 5.0-20.0 ug/mL . Vancomycin trough concentrations drawn immediately prior to the next dose at steady-state are preferred for monitoring patients treated with vancomycin. Ref.: Am J Health-Syst Pharm 66: 83-98, 2008. Performed By: #### V ANCU #### [facility] [address] [place] [address] Vancomycin Level, Randomon 0 10-26-2022 Vancomycin [Mass/Vol] 14.6 ug/mL [employer] Work Phone: Comment on above: .Therapeutic Ranges: Peak: All ages: 30.0-40.0 ug/mL. Trough: Age <18y: 5.0-10.0 ug/mL. Age >/= 18y: 5.0-20.0 ug/mL. Vancomycin trough concentrations drawn immediately prior to the next dose at steady-state are preferred for monitoring patients treated with vancomycin. Ref.: Am J Health-Syst Pharm 66: 83-98, 2008. Angiotensin Converting Enzym e, Serumon 10-25-2022 Angiotensin converting enzyme [Catalytic activity/Vol] U/L below low threshold 16-85 [employer] Work Phone: Comment on above: Performed By: RAJENDRA Snyder [address] [id number] Director: Kyle Hyatt MD, PhD CBCon 10-25-2022 Erythrocyte distribution width (RBC) [Ratio] 13.3 % Normal 11.5 - 14.5 [facility] Comment on above: Performed By: #### V ANCU #### [facility] [address] [place] [address] Hematocrit (Bld) [Volume fraction] 34.5 % Low 36.0 - 46.0 [facility] Comment on above: Performed By: #### V ANCU #### [facility] [address] [place] [address] Hemoglobin (Bld) [Mass/Vol] 11.5 g/dL Low 12.0 - 16.0 [facility] Comment on above: Performed By: #### V ANCU #### [facility] [address] [place] [address] MCHC (RBC) [Mass/Vol] 33.3 g/dL Normal 32.0 - 36.0 [facility] Comment on above: Performed By: #### V ANCU #### [facility] [address] [place] [address] MCV (RBC) [Entitic vol] 82 fL Normal 80 - 100 [facility] Comment on above: Performed By: #### V ANCU #### [facility] [address] [place] [address] NUCLEATED RBC 0.0 /100 WBC Normal 0.0-0.0 [facility] Comment on above: Performed By: #### V ANCU #### [facility] [address] [place] [address] Platelets (Bld) [#/Vol] 306 10*3/uL Normal 150 - 450 [facility] Comment on above: Performed By: #### V ANCU #### [facility] [address] [place] [address] RBC 4.23 x10E12/L Normal 4.00 - 5.20 [facility] Comment on above: Performed By: #### V ANCU #### [facility] [address] [place] [address] WBC (Bld) [#/Vol] 10.1 10*3/uL Normal 4.4 - 11.3 [facility] Comment on above: Performed By: #### V ANCU #### [facility] [address] [place] [address] Daily Progress Note-Medicine on 10-25-2022 Daily Progress Note-Medicine Service: Medicine Subjective Data: GRACIE BANUELOS is a 57 year old Female who is Hospital Day # 3. No overnight events. Pt states the swelling in her right eye is better. She endorses at least 3 episodes of diarrhea a day since she came here. Objective Data: Objective Information: T PRBPMAPSpO2 [id number]/6893% Date/Time10/25 6: 6: 6: 6: 6:08 Range(36C [...] Recent Lab Results: Results: CBC: 10/25/2022 09:24 \ Hgb / \ 11.5 L / WBC Plt 10.1 306 / Hct \ / 34.5 L \ RBC: 4.23 MCV: 82 RFP: 10/25/2022 09:24 NA+ Cl- BUN / 135 L 101 10 / --------- Glucose ---- 104 H K+ HCO3- Creat \ 3.7 25 1.09 H \ Calcium : 9.0Anion Gap : 13 Albumin [...] that it started the day she left [facility]. C. diff work up at [facility] came back negative - Likely due to Abx - Started on Immodium as needed - Will consider C diff PC (more content not included)... Normal [facility] Daily Progress Note-Ophthalm ologyon 10-25-2022 Daily Progress Note-Ophthalmology Service: Ophthalmology Subjective Data: GRACIE BANUELOS is a 57 year old Female who is Hospital Day # 3. Objective Data: Objective Information: T PRBPMAPSpO2 [id number]/6893% Date/Time10/25 6: 6: 6: 6: 6:08 Range(36C - 36.7C ) (82 - 102 ) (18 - 18 ) (93 - 151 )/ (62 - 84 ) (91% - 95% ) Pain reported at 10/25 6:08: 7 = Severe Recent Lab Results: Results: CBC: 10/24/2022 08:44 \ Hgb / \ 11.4 L / WBC Plt 10.5 322 / Hct \ / 34.0 L \ RBC: 4.16 MCV: 82 Neutrophil %: 63.8 CMP: 10/24/2022 08:44 NA+ Cl- BUN / 139 103 9 / --------- Glucose ---- 95 K+ HCO3- Creat \ 4.1 25 0.92 \ \ T Bili / \ 0.3 / AST x ---- x ALT 26 x ---- x 23 / Alk P \ / 107 \ Calcium : 9.2 Anion Gap : 15 [...] progressed. On 10/19/22 she presented to the [facility] and CT orbits showed findings concerning for right orbital cellulitis. WBC was reportedly 13.9, ESR 75, and CRP 42.6. She was prescribed clindamycin to take at home, but her pain only worsened and she presented to [facility] on 10/20/22 for further management. [...] CT Orbit Sella Inner, by report from [facility] shows: 1. Marked abnormality of the soft [...] which I personally reviewed, by report from [employer] shows Abnormal infiltration throughout the right retroantral and extraconal fat as well as the pterygopalatine fo (more content not included)... Normal [facility] Laboratory - Hematology and Cell countson 10-25-2022 Erythrocyte distribution width (RBC) [Ratio] 13.3 % See Below -Medicine- Wilfrid Giang Work Phone: Comment on above: Reference Range: 11. 5 - 14.5 Hematocrit (Bld) [Volume fraction] 34.5 % below low threshold See Below 1000memoriesUlices Giang Work Phone: Comment on above: Reference Range: 36. 0 - 46.0 Hemoglobin (Bld) [Mass/Vol] 11.5 g/dL below low threshold See Below 1000memoriesUlices Giang Work Phone: Comment on above: Reference Range: 12. 0 - 16.0 MCHC (RBC) [Mass/Vol] 33.3 g/dL See Below 1000memories Ulices Giang Work Phone: Comment on above: Reference Range: 32. 0 - 36.0 MCV (RBC) [Entitic vol] 82 fL 80 - 100 M Kusum Giang Work Phone: Platelets (Bld) [#/Vol] 306 10*3/uL 150 - 450 Jerod Giang Work Phone: RBC (Bld) [#/Vol] 4.23 {x10E12/L} See Below SeamlessUlices Giang Work Phone: Comment on above: Reference Range: 4.0 0 - 5.20 WBC (Bld) [#/Vol] 10.1 10*3/uL 4.4 - 11.3 Lars Giang Work Phone: Laboratory - Microbiology an d Antimicrobial susceptibilityOrdered By: Dr. Dykes on 10-25-2022 Bacteria identified Cx Nom (Bld) No growth in 5 days. [facility] Lysozyme, Serumon 10-25-2022 Lysozyme [Mass/Vol] 9.0 ug/mL 2.5-12.9 MG-Me lou Giang Work Phone: Comment on above: Effective [...] No Panel Informationon 10-25 0.0 {/100_WBC} 0.0-0.0 MG-Ty Giang Work Phone: RENAL FUNCTION PANELon 10-25 Albumin [Mass/Vol] 3.3 g/dL Low 3.4 - 5.0 [facility] Comment on above: Performed By: #### U A #### [facility] [address] [place] [address] Anion gap [Moles/Vol] 13 mmol/L Normal 10 - 20 [facility] Comment on above: Performed By: #### U A #### [facility] [address] [place] [address] Calcium [Mass/Vol] 9.0 mg/dL Normal 8.6 - 10.6 [facility] Comment on above: Performed By: #### U A #### [facility] [address] [place] [address] Chloride [Moles/Vol] 101 mmol/L Normal 98 - 107 [facility] Comment on above: Performed By: #### U A #### [facility] [address] [place] [address] Creatinine [Mass/Vol] 1.09 mg/dL High 0.50 - 1.05 [facility] Comment on above: Performed By: #### U A #### [facility] [address] [place] [address] GFR/1.73 sq M.predicted among non-blacks MDRD (S/P/Bld) [Vol rate/Area] 58 mL/min/{1.73_m2} Abnormal >90 [facility] Comment on above: Result Comment: CALC ULATIONS OF ESTIMATED GFR ARE PERFORMED USING THE 2020 CKD-EPI STUDY REFIT EQUATION WITHOUT THE RACE VARIABLE FOR THE IDMS-TRACEABLE CREATININE METHODS. https://jasn.asnjournals.org/content/early/ASN.2020 837635 Performed By: #### U A #### [facility] [address] [place] [address] Glucose [Mass/Vol] 104 mg/dL High 74 - 99 [facility] Comment on above: Performed By: #### U A #### [facility] [address] [place] [address] HCO3 (Bld) [Moles/Vol] 25 mmol/L Normal 21 - 32 [facility] Comment on above: Performed By: #### U A #### [facility] [address] [place] [address] Phosphate [Mass/Vol] 4.3 mg/dL Normal 2.5 - 4.9 [facility] Comment on above: Result Comment: The performance characteristics of phosphorus testing in heparinized plasma have been validated by the individual laboratory site where testing is performed. Testing on heparinized plasma is not approved by the FDA; however, such approval is not necessary. Performed By: #### U A #### [facility] [address] [place] [address] Potassium [Moles/Vol] 3.7 mmol/L Normal 3.5 - 5.3 [facility] Comment on above: Performed By: #### U A #### [facility] [address] [place] [address] Sodium [Moles/Vol] 135 mmol/L Low 136 - 145 [facility] Comment on above: Performed By: #### U A #### [facility] [address] [place] [address] Urea nitrogen [Mass/Vol] 10 mg/dL Normal 6 - 23 [facility] Comment on above: Performed By: #### U A #### [facility] [address] [place] [address] RPR WITH TITER SYPHILIS ESTELLA TORINGon 10-25-2022 RPR MONITORING Canceled Normal [facility] Comment on above: Order Comment: TEST RPR WITH TITER SYPHILIS MONITORING WAS CANCELLED, 10/25/2022 00:46 RBS update.. Performed By: #### R PRSM #### [facility] [address] [place] [address] Lab Specimen Source Normal [facility] Comment on above: Order Comment: TEST RPR WITH TITER SYPHILIS MONITORING WAS CANCELLED, 10/25/2022 00:46 RBS update.. Performed By: #### R PRS #### [facility] [address] [place] [address] Renal Function Panelon 10-25 Albumin BCP dye [Mass/Vol] 3.3 g/dL below low threshold 3.4 - 5.0 [facility]- Wilfridjodi Giang Work Phone: Anion gap [Moles/Vol] 13 [...] Medicine- Wilfrid Giang Work Phone: Sodium [Moles/Vol] 135 mmol/L below low threshold 136 - 145 [facility]- Wilfridjodi Giang Work Phone: Urea nitrogen [Mass/Vol] 10 mg/dL 6 - 23 Jerod Giang Work Phone: Renal Function Panel 58 {mL/min/1.73m2} Abnormal >90 Jerdo Giang Work Phone: Comment on above: CALCULATIONS OF PAVAN MATED GFR ARE PERFORMED USING THE 2020 CKD-EPI STUDY REFIT EQUATION WITHOUT THE RACE VARIABLE FOR THE IDMS-TRACEABLE CREATININE METHODS.https://jasn.asnjournals.org/content/early// ASN.0903633828 SYPHILIS SCREENING WITH REFL EXon 10-25-2022 SYPHILIS TOTAL AB Non-Reactive Normal NONREACTIVE [facility] Comment on above: Result Comment: No s ignificant level of Treponema pallidum antibody detected. 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 Performed By: #### U A #### [facility] [address] [place] [address] Lab Specimen Source Normal [facility] Comment on above: Performed By: #### U A #### [facility] [address] [place] [address] T. pallidum IgG+IgM IA Ql (S) Non-Reactive See Below Jerod Giang Work Phone: Comment on above: SOURCE: Reference Ra nge: NONREACTIVENo significant level of Treponema pallidum antibody detected. 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 VANCOMYCIN,TROUGHon 10-25-19 VANCOMYCIN,TROUGH 27.0 ug/mL Critically high 5.0 - 20.0 [facility] Comment on above: Order Comment: [...] Ref.: Am J Health-Syst Pharm 66: 83-98, 2008. VANCT CALLED TO BRANDI WAGONER, 10/25/2022 17:09 Performed By: #### A [facility] #### [facility] [address] [place] [address] Vancomycin Level, Troughon 0 10-25-2022 Vancomycin trough [Mass/Vol] 27.0 ug/mL Critically high 5.0 - 20.0 [facility]- Wilfrid Giang Work Phone: Comment on above: [...] AlertFor Ebola-like Symptoms: Isolate Patient and Notify Provider/Rent Control Office Manager For Contact: Notify Provider/Rent Control Office Manager Advance Directive: Advance Directive/DNRno Advance Directive Information [...] video; verbal instruction Cultural Considerationsnone Developmental Considerationsnone Caodaism Considerationsnone Learning Assessment (Other Learner): Other learner availableno Depression Screen: During the past month, have you often been bothered by feeling down, depressed or hopelessno During the past month, have you often had little interest or pleasure in doing thingsno Have you had any thoughts of harming anyone elseno [place] Suicide: Risk Screen Not Applicable/Able to Answerable to be screened In the Past Month: Have you wished you were or could go to sleep and not wake upno In the Past Month: Have you had any actual thoughts of killing yourselfno Lifetime: Have you ever done, started to do, or prepared to do anything to end your lifeno [place] Suicide Risknegative Adult Nutrition Screen: Have you [...] Spiritual Screen: Are there any cultural, spiritual, jewish practices/values/needs that are important for us to knowno CAGE: Is this an inju (more content not included)... Normal [facility] C Reactive Protein, Serumon 10-24-2022 CRP [Mass/Vol] 6.50 mg/dL Abnormal [facility] cherry- Wilfrid Giang Work Phone: Comment on above: REF VALUE< 1.00 C-REACTIVE PROTEINon 023 C-REACTIVE PROTEIN 6.50 mg/dL Abnormal [facility] Comment on above: Result Comment: REF VALUE < 1.00 Performed By: #### U A #### [facility] [address] [place] [address] CBC AND DIFFERENTIALon 10-24 % AUTOMATED IMMATURE GRAN 0.5 % Normal 0.0 - 0.9 [facility] Comment on above: Result Comment: Iram ture Granulocyte Count (IG) includes promyelocytes, myelocytes and metamyelocytes but does not include bands. Percent differential counts (%) should be interpreted in the context of the absolute cell counts (cells/L). Performed By: #### C BCDF #### [facility] [address] [place] [address] Basophils (Bld) [#/Vol] 0.11 10*3/uL High 0.00 - 0.1 0 [facility] Comment on above: Performed By: #### C BCDF #### [facility] [address] [place] [address] Basophils/100 WBC (Bld) 1.1 % Normal 0.0 - 2.0 [facility] Comment on above: Performed By: #### C BCDF #### [facility] [address] [place] [address] Eosinophils (Bld) [#/Vol] 0.75 10*3/uL High 0.00 - 0.70 [facility] Comment on above: Performed By: #### C BCDF #### [facility] [address] [place] [address] Eosinophils/100 WBC (Bld) 7.2 % Normal 0.0 - 6.0 [facility] Comment on above: Performed By: #### C BCDF #### [facility] [address] [place] [address] Erythrocyte distribution width (RBC) [Ratio] 13.4 % Normal 11.5 - 14.5 [facility] Comment on above: Performed By: #### C BCDF #### [facility] [address] [place] [address] Hematocrit (Bld) [Volume fraction] 34.0 % Low 36.0 - 46.0 [facility] Comment on above: Performed By: #### C BCDF #### [facility] [address] [place] [address] Hemoglobin (Bld) [Mass/Vol] 11.4 g/dL Low 12.0 - 16.0 [facility] Comment on above: Performed By: #### C BCDF #### [facility] [address] [place] [address] Lymphocytes (Bld) [#/Vol] 1.67 10*3/uL Normal 1.20 - 4.80 [facility] Comment on above: Performed By: #### C BCDF #### [facility] [address] [place] [address] Lymphocytes/100 WBC (Bld) 16.0 % Normal 13.0 - 44.0 [facility] Comment on above: Performed By: #### C BCDF #### [facility] [address] [place] [address] MCHC (RBC) [Mass/Vol] 33.5 g/dL Normal 32.0 - 36.0 [facility] Comment on above: Performed By: #### C BCDF #### [facility] [address] [place] [address] MCV (RBC) [Entitic vol] 82 fL Normal 80 - 100 [facility] Comment on above: Performed By: #### C BCDF #### [facility] [address] [place] [address] Monocytes (Bld) [#/Vol] 1.19 10*3/uL High 0.10 - 1.0 0 [facility] Comment on above: Performed By: #### C BCDF #### [facility] [address] [place] [address] Monocytes/100 WBC (Bld) 11.4 % Normal 2.0 - 10.0 [facility] Comment on above: Performed By: #### C BCDF #### [facility] [address] [place] [address] Neutrophils (Bld) [#/Vol] 6.68 10*3/uL Normal 1.20 - 7.70 [facility] Comment on above: Performed By: #### C BCDF #### [facility] [address] [place] [address] Neutrophils/100 WBC (Bld) 63.8 % Normal 40.0 - 80.0 [facility] Comment on above: Performed By: #### C BCDF #### [facility] [address] [place] [address] NUCLEATED RBC 0.0 /100 WBC Normal 0.0-0.0 [facility] Comment on above: Performed By: #### C BCDF #### [facility] [address] [place] [address] Platelets (Bld) [#/Vol] 322 10*3/uL Normal 150 - 450 [facility] Comment on above: Performed By: #### C BCDF #### [facility] [address] [place] [address] RBC 4.16 x10E12/L Normal 4.00 - 5.20 [facility] Comment on above: Performed By: #### C BCDF #### [facility] [address] [place] [address] WBC (Bld) [#/Vol] 10.5 10*3/uL Normal 4.4 - 11.3 [facility] Comment on above: Performed By: #### C BCDF #### [facility] [address] [place] [address] COMPREHENSIVE PANELon 2022 Albumin [Mass/Vol] 3.6 g/dL Normal 3.4 - 5.0 [facility] Comment on above: Performed By: #### C MP #### [facility] [address] [place] [address] ALP [Catalytic activity/Vol] 107 U/L Normal 33 - 110 [facility] Comment on above: Performed By: #### C MP #### [facility] [address] [place] [address] ALT [Catalytic activity/Vol] 23 U/L Normal 7 - 45 [facility] Comment on above: Result Comment: Gretta ents treated with Sulfasalazine may generate falsely decreased results for ALT. Performed By: #### C MP #### [facility] [address] [place] [address] Anion gap [Moles/Vol] 15 mmol/L Normal 10 - 20 [facility] Comment on above: Performed By: #### C MP #### [facility] [address] [place] [address] AST [Catalytic activity/Vol] 26 U/L Normal 9 - 39 [facility] Comment on above: Performed By: #### C MP #### [facility] [address] [place] [address] Bilirubin [Mass/Vol] 0.3 mg/dL Normal 0.0 - 1.2 [facility] Comment on above: Performed By: #### C MP #### [facility] [address] [place] [address] Calcium [Mass/Vol] 9.2 mg/dL Normal 8.6 - 10.6 [facility] Comment on above: Performed By: #### C MP #### [facility] [address] [place] [address] Chloride [Moles/Vol] 103 mmol/L Normal 98 - 107 [facility] Comment on above: Performed By: #### C MP #### [facility] [address] [place] [address] Creatinine [Mass/Vol] 0.92 mg/dL Normal 0.50 - 1.05 [facility] Comment on above: Performed By: #### C MP #### [facility] [address] [place] [address] GFR/1.73 sq M.predicted among non-blacks MDRD (S/P/Bld) [Vol rate/Area] 72 mL/min/{1.73_m2} Normal >90 [facility] Comment on above: Result Comment: CALC ULATIONS OF ESTIMATED GFR ARE PERFORMED USING THE 2020 CKD-EPI STUDY REFIT EQUATION WITHOUT THE RACE VARIABLE FOR THE IDMS-TRACEABLE CREATININE METHODS. https://jasn.asnjournals.org/content/early/ASN.2020 977832 Performed By: #### C MP #### [facility] [address] [place] [address] Glucose [Mass/Vol] 95 mg/dL Normal 74 - 99 [facility] Comment on above: Performed By: #### C MP #### [facility] [address] [place] [address] HCO3 (Bld) [Moles/Vol] 25 mmol/L Normal 21 - 32 [facility] Comment on above: Performed By: #### C MP #### [facility] [address] [place] [address] Potassium [Moles/Vol] 4.1 mmol/L Normal 3.5 - 5.3 [facility] Comment on above: Performed By: #### C MP #### [facility] [address] [place] [address] Protein [Mass/Vol] 6.4 g/dL Normal 6.4 - 8.2 [facility] Comment on above: Performed By: #### C MP #### [facility] [address] [place] [address] Sodium [Moles/Vol] 139 mmol/L Normal 136 - 145 [facility] Comment on above: Performed By: #### C MP #### [facility] [address] [place] [address] Urea nitrogen [Mass/Vol] 9 mg/dL Normal 6 - 23 [facility] Comment on above: Performed By: #### C MP #### [facility] [address] [place] [address] Clinical Event Note-AH@H Scr eenon 10-24-2022 Clinical Event Note-AH@H Screen Clinical Event: Clinical Event Note: TopicAH@H Screen Details Patient was referred to AH@H program. Upon review with Provider and/or Social Assessment patient does not qualify for the program due to pt declined. 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 Sources used to confirm home medication list: Patient interview/ HIE [facility] 10/20/2022 Additional comments: Patient was recently discharged from [facility] on 10/23/2022. Creon dosage was confirmed with patient of 24,000 units 1 capsule 3 times a day with meals. Medication reconciliation complete Please reach out via [employer] for questions Brandi Lr, PharmD, Meds Meds Ambulatory and Retail Services Is This Intervention Medication Reconciliation Relatedyes Time [id number] - 60 minutes Additional NotesDrug Name: mirtazapine [...] Authored: Discharge Meds, Education, Allergy Constance Buckley ([facility]) (Signed 27-Oct-2022 09:36) Co-Signer: Discharge Meds, Education, Allergy Last Updated: 27-Oct-2022 09:36 by Constance Buckley ([facility]) Normal [facility] Complete Blood Count + Diffe yamil 10-24-2022 Basophils/100 WBC (Bld) 1.1 % 0.0 - 2.0 M [facility] [employer] Work Phone: Erythrocyte distribution width (RBC) [Ratio] 13.4 % See Below [facility] [employer] Work Phone: Comment on above: Reference Range: 11. 5 - 14.5 Hematocrit (Bld) [Volume fraction] 34.0 % below low threshold See Below [employer] [employer] Work Phone: Comment on above: Reference Range: 36. 0 - 46.0 Hemoglobin (Bld) [Mass/Vol] 11.4 g/dL below low threshold See Below Jerod Giang Work Phone: [phone] Comment on above: Reference Range: 12. 0 - 16.0 Lymphocytes/100 WBC (Bld) 16.0 % See Below Jerod Giang Work Phone: [phone] Comment on above: Reference Range: 13. 0 - 44.0 MCHC (RBC) [Mass/Vol] 33.5 g/dL See Below JUAN Giang Work Phone: [phone] Comment on above: Reference Range: 32. 0 - 36.0 MCV (RBC) [Entitic vol] 82 fL 80 - 100 M Kusum Giang Work Phone: [phone] Monocytes/100 WBC (Bld) 11.4 % 2.0 - 10.0 M Kusum [facility] Work Phone: [phone] Neutrophils/100 WBC (Bld) 63.8 % See Below Jerod Giang Work Phone: [phone] Comment on above: Reference Range: 40. 0 - 80.0 Platelets (Bld) [#/Vol] 322 10*3/uL 150 - 450 Jerod Giang Work Phone: [phone] RBC (Bld) [#/Vol] 4.16 {x10E12/L} See Below MG Nathalie Giang Work Phone: [phone] Comment on above: Reference Range: 4.0 0 - 5.20 WBC (Bld) [#/Vol] 10.5 10*3/uL 4.4 - 11.3 -Nm dicineSierra Giang Work Phone: [phone] Complete Blood Count + Differential 0.11 {x10E9/L} above high threshold See Below Jerod Giang Work Phone: Comment on above: Reference Range: 0.0 0 - 0.10 Complete Blood Count + Differential 0.75 {x10E9/L} above high threshold See Below [facility]Ulices [facility] Work Phone: Comment on above: Reference Range: 0.0 0 - 0.70 Complete Blood Count + Differential 1.19 {x10E9/L} above high threshold See Below [facility] Work Phone: Comment on above: Reference Range: 0.1 0 - 1.00 Complete Blood Count + Differential 1.67 {x10E9/L} See Below [facility] Work Phone: Comment on above: Reference Range: 1.2 0 - 4.80 Complete Blood Count + Differential 6.68 {x10E9/L} See Below [facility] Work Phone: Comment on above: Reference Range: 1.2 0 - 7.70 Complete Blood Count + Differential 7.2 % 0.0 - 6.0 [facility] Work Phone: Complete Blood Count + Differential 0.5 % 0.0 - 0.9 [facility] Yuen [facility] Work Phone: Comment on above: Immature Granulocyte Count (IG) includes promyelocytes, myelocytes and metamyelocytes but does not include bands. Percent differential counts (%) should be interpreted in the context of the absolute cell counts (cells/L). Complete Blood Count + Differential 0.0 {/100_WBC} 0.0-0.0 [facility] Yuen [facility] Work Phone: Consult-ENTon 10-24-2022 Consult-ENT Service: Service: ENT Consult: Consult requested by (Attending Name): Tai Peoples Reason: 57 yo female coming [facility] as a transfer from [facility] for R eye evaluation for a cut-down biopsy of diffuse inflitration from the orbit into surroiunding tissue. Pt had an extensive work up at [facility] and [place] and rheumatologic or infectious causes were ruled [...] imaging. Pt noted to originally present to [facility] for 1 month of worseninig right eye pain/right headache/episodes of blurry and double vision without other symptoms. Denies eye trauma. Denies similar prior episodes. Denies nasal congestion/drainage. No inciting event. No relief with outpt antibiotics. At [facility] some improvement noted with antibiotics. Rheum c/s determined no rheum cause. Has not tried steroids yet. ENT at [facility] determined no need for biopsy at [...] a 57 year old female transferred from [facility] for evaluation by oculoplastics here for biopsy [...] Fortino Mathews DO, PGY2 Adult Service Pager: [phone] [facility] Service Pager: [phone] [phone]. Review Family/Social History and ROS: Social History: Smoking Status: unable to assess (1) Alcohol Use: denies(1) Drug Use: denies (1) Allergies: penicillin: Hives/Urticaria Consult Status: Consult Order ID: [id number] Attestation: Note Completion: I am a: Resident/Fellow [...] the note. I personally evaluated the patient [id number] Electronic Signatures: Fortino Mathews ( (R (more content not included)... [facility] Consult-Infectious Diseaseon 10-24-2022 Consult-Infectious Disease Service: Service: Infectious Disease Consult: Consult requested by (Attending Name): Tai Peoples Reason: 57 year old woman who is presenting as a transfer to [facility] from [facility] for further management of preseptal cellulitis vs. infiltrative process of her right eye seen on MRI orbit. ID at [facility] recommended Vanc/zosyn History of Present Illness: HPI: GRACIE BANUELOS is a 57 year old woman pmhx sig for COPD, HTN, transferred from [facility] on 10/23 for inflammatory eye disease/possible preseptal cellulitis. HPI per notes and pt. Pt reports ~1 mos R eye redness, swelling and pain. Was treated by outpt eye doctor w/ azithromycin x 5 days on 10/17. Presented to [facility]. Given 1 dose clindamycin and transferred to [facility]. Admits to having fever and chills prior to [facility] admission, but describes them as sweats which [...] candles. Never had this before. 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 [facility] Consult-Ophthalmologyon 09-29 Consult-Ophthalmology Service: Service: Ophthalmology Consult: Consult requested by (Attending Name): Tai Peoples Reason: 57 yo female coming as a transfer from [facility] for R eye evaluation for oculoplastic need for a cut-down biopsy of diffuse inflitration from the orbit into surroiunding tissue. Pt had an extensive work up at [facility] and [place] and rheumatologic or infectious causes were ruled [...] progressed. On 10/19/22 she presented to the [place] [facility] and CT orbits showed findings concerning for right orbital cellulitis. WBC was reportedly 13.9, ESR 75, and CRP 42.6. She was prescribed clindamycin to take at home, but her pain only worsened and she presented to [facility] on 10/20/22 for further management. [...] CT Orbit Sella Inner, by report from [facility] shows: 1. Marked abnormality of the soft [...] which I personally reviewed, by report from [facility] shows Abnormal infiltration throughout the right retroantral and extraconal fat as well as the pterygopalatine fossa and diffusely throughout the right clinical trial coordinator space with asymmetry of the muscles of mastication. Additional mild enlargement of the right inferior and lateral rectus. These findings are highly concerning for invasive fungal sinusitis until proven otherwise. Mild as (more content not included)... [facility] Discharge Planning [id number] 0 10-24-2022 Discharge Planning Note2 Discharge Planning: Needs Prior to Discharge (ex. Home Care Orders, IV/O2 prescriptions) f/u appts Discharge Barriersnone Planned Dispositionhome Discharge DestinationHome with family vs HC if IV abx needed AMPAC < 20no Anticipated Discharge [id number] Discharge Planning 10/23/22-Admission [id number] arrived to unit from [facility] via stretcher per community care in stable [...] Await ID reccs; opthalmology on board. Payer: [facility] Status: inpatient Discharge disposition: HC RN if IV abx needed. Potential Barriers: none ADOD: 10/29 Vicki Varela RNdirector of corporate responsibility Coordinator Assessment: Discharge Planning Assessment Discharge Planning Assessment Completed Umberto Varela RNdirector of corporate responsibility Coordinator Primary Contact Name and NumberTina Augustine (sister)-[phone] Prior Level of Functioningind with ADLS Lives Withadult child(rama); dependent child(rama); daughter and granddaughter Living Arrangementshouse PCPJoy Older [facility] [place] Recent Falls/ Injury/ Need Assist with Ambulationdenies Equipment Currently Used at [facility] DME Supplier Name/Numbern/a Home Care Agency/Support Servicesn/a Diabetic/Supplies Neededn/a Hemodialysis Schedulen/a [facility] Anticipated at Transitionnone PCP Last Date Seencouple months ago InsuranceCaresource Equipment Needed After Dischargenone Anticipated Discharge Facility/Level of Care Needs.Home Discharge Planning CommentsPt has transportation to medical appointments, feels safe at home. Address, phone and emergency contact information verified. All questions and concerns answered. Will continue to follow for discharge needs. Vicki Varela, director of corporate responsibility Coordinator Social Determinants of Health Identifiedpast hx of ETOH use Transportation Home Who/Howsister Medication Adherence/Afford/Obtain yes Home O2/BiPAP/CPAPHome O2 O2 LPM2L NC PRN Home O2 SupplierDasko Discharge Documentation: Code StatusCode Status order at time of discharge: Full Code Electronic Signatures: Vicki Varela ([facility]) (Signed 27-Oct-2022 13:57) Authored: Discharge Planning, Assessment, Discharge Documentation Humberto Arriaga (SARWAT) (Signed 24-Oct-2022 00:15) Authored: Discharge Planning, Assessment Last Updated: 27-Oct-2022 13:57 by Vicki Varela ([facility]) [facility] Discharge [id number] 023 Discharge Profile2 Discharge Orders: Anticipated Discharge Date: Anticipated Discharge [id number] DNAR: Code Status at Discharge: Full Code Activity: activity as tolerated. Diet: Dietregular Labs 1: Lab Test(s)RFP Date To Be Drawn10/30/22 Call Results ToSoila Easton CNP or Fax Results [phone] CommentsPCP consider monitoring improvement of CHUY upon recent hospital admission Oxygen: Administer oxygen at 2 liters/min via nasal cannula to maintain SpO2 % of 88-92 with activity. Additional Orders: Additional Instructions Dear Ms. Banuelos, You presented to us as transfer from [facility] for a possible biopsy of the [...] vs. infiltrative mass. Vanc/zosyn were started at [facility]. Oculoplastic were consulted and there was a [...] for ReferralEstablish with Primary Care Provider Scheduled Date/[id number] 16:[address], [address] [place] [address] fax Phone [phone] CommentsPlease bring your insurance card, photo id, a list of medication in the original bottle, any co-pays you may have, and the discharge summary Follow-Up Appointment 02: Physician/Dept/Shamar phthalmology: Dr Ortega Scheduled Date/[id number]-8294 15:30 [facility] [address] [facility] [address] [facility] [address] CommentsPlease bring your insurance card, photo id, a list of medication in the original bottle, any co-pays you may have, and the discharge summary Follow-Up Appointment 03: Physician/Dept/Baudilio Easton CNP Call to Schedule inPatient is to call upon discharge and schedule follow up for Thursday10/31/[address] [place] [address] or Electronic Signatures: Annie Escobedo (PT ACC REP) (Signed 28-Oct-2022 09:45) Authored: Discharge Orders, Appointments Justyn Richter (Resident)) (Signed 29-Oct-2022 11:30) Authored: Discharge Orders, Hospital Course (Home Care/Gold Form), Provider FINAL REVIEW of Orders Katina Booker (REGIONAL LIAISON-RN FACULTY) (Signed 28-Oct-2022 09:22) Authored: Discharge Orders, Provider FINAL REVIEW of Orders, Gold Form - Heavy Equipment Mechanic Summary Donn Trammell ( (Resident)) (Signed 29-Oct-2022 12:36) Authored: Discharge Orders, Hospital Course (Home Care/Gold Form), Provider FINAL REVIEW of Orders, Appointments Last Updated: 29-Oct-2022 12:36 by Donn Trammell ( (Resident)) [facility] Electrocardiogram 12 Leadon 10-24-2022 Electrocardiogram 12 Lead Ventricular Rate 82 Atrial Rate 82 P-R Interval 168 QRS Duration 74 Q-T Interval 394 QTC Calculation(Bazett) 460 P Bergoo 50 R Bergoo 76 T Bergoo 79 QRS Count 14 Q Onset 233 P Onset 149 P Offset 196 T Offset 430 QTC Fredericia 437 Diagnosis Class Abnormal Diagnosis Normal sinus rhythm Anterior infarct , age undetermined Abnormal ECG No previous ECGs available Confirmed by Dinesh Najera ([id number]) on 10/24/2022 11:13:15 AM Normal [facility] Laboratory - Chemistry and C hemistry - challengeon 10-24-2022 Albumin BCP dye [Mass/Vol] 3.6 g/dL 3.4 - 5.0 [facility] Wilfrid Giang Work Phone: [phone] ALP [Catalytic activity/Vol] 107 U/L 33 - 110 [facility] Giang Work Phone: [phone] ALT With P-5'-P [Catalytic activity/Vol] 23 U/L 7 - 45 [facility] Work Phone: [phone] Comment on above: Patients treated wit h Sulfasalazine may generate falsely decreased results for ALT. Anion gap [Moles/Vol] 15 mmol/L 10 - 20 [facility] Giang Work Phone: [phone] AST With P-5'-P [Catalytic activity/Vol] 26 U/L 9 - 39 [facility] Giang Work Phone: [phone] Bilirubin [Mass/Vol] 0.3 mg/dL 0.0 - 1.2 [facility] [employer] Work Phone: [phone] Calcium [Mass/Vol] 9.2 mg/dL 8.6 - 10.6 [facility] Wilfrid Giang Work Phone: [phone] Chloride [Moles/Vol] 103 mmol/L 98 - 107 [facility] Wilfrid Reichhold Work Phone: [phone] CO2 [Moles/Vol] 25 mmol/L 21 - 32 [facility] [employer] Work Phone: [phone] Creatinine [Mass/Vol] 0.92 mg/dL See Below [facility] Giang Work Phone: [phone] Comment on above: Reference Range: 0.5 0 - 1.05 Glucose [Mass/Vol] 95 mg/dL 74 - 99 [facility] Wilfrid Giang Work Phone: [phone] Potassium [Moles/Vol] 4.1 mmol/L 3.5 - 5.3 [facility] Giang Work Phone: Protein [Mass/Vol] 6.4 g/dL 6.4 - 8.2 [facility] rigoberto Giang Work Phone: Sodium [Moles/Vol] 139 mmol/L 136 - 145 [facility] rigoberto Giang Work Phone: Urea nitrogen [Mass/Vol] 9 mg/dL 6 - 23 [facility]MedicineSeirra Giang Work Phone: MAGNESIUMon 10-24-2022 Magnesium [Mass/Vol] 1.75 mg/dL Normal 1.60 - 2.40 [facility] Comment on above: Performed By: #### V ANCU #### [facility] [address] [place] [address] Magnesium, Serumon Magnesium [Mass/Vol] 1.75 mg/dL See Below MG-M edrigoberto Giang Work Phone: Comment on above: Reference Range: 1.6 0 - 2.40 No Panel Informationon 10-24 72 {mL/min/1.73m2} >90 [facility] rigoberto Giang Work Phone: Comment on above: CALCULATIONS OF PAVAN MATED GFR ARE PERFORMED USING THE 2020 CKD-EPI STUDY REFIT EQUATION WITHOUT THE RACE VARIABLE FOR THE IDMS-TRACEABLE CREATININE METHODS.https://jasn.asnjournals.org/content/early/ ASN.1634907959 https://MUSEXPRDWE B01 :8080/musescripts/musew eb.dll?RetrieveTestByDa teTime?MnoqyvtXD=742985 393&Date=24-10-2022&Jose Luis e=06%3a25%3a35%3a00&Shabana tType=ECG&Site=1&Output Type=PDF&Ext=PDF [facility]es Gi[facility] Work Phone: Normal sinus rhythm MG-Me [...] (Advanced Practice Nurse-Admit) done by Katina Booker (REGIONAL LIAISON-[facility]) Discharge - Partial Reconciliation: 24-Oct-2022 08:06 by: Katina Booker (REGIONAL LIAISON-[facility]) Discharge - Partial Reconciliation: 27-Oct-2022 06:53 by: Katina Booker ([place] [facility] Discharge - Partial Reconciliation: 27-Oct-2022 07:55 by: Katina Booker ([facility]) Discharge - Partial Reconciliation: 27-Oct-2022 13:27 by: Katina Booker ([facility]) Discharge - Partial Reconciliation: 28-Oct-2022 07:04 by: Katina Booker ([facility]) Discharge - Reconciliation: 28-Oct-2022 07:09 by: Katina Booker ([facility]) Discharge - Reset to Incomplete: 28-Oct-2022 07:11 by: Katina Booker ([facility]) Discharge - Reconciliation: 28-Oct-2022 07:11 by: Katina Booker ([facility]) Discharge - Reset to Incomplete: 28-Oct-2022 09:07 by: Katina Booker ([facility]) Discharge - Partial Reconciliation: 28-Oct-2022 09:08 by: Katina Booker ([facility]) Discharge - Reconciliation: 28-Oct-2022 09:08 by: Katina Booker ([facility]) Discharge - Reset to Incomplete: 28-Oct-2022 09:09 by: Katina Booker ([facility]) Discharge - Reconciliation: 28-Oct-2022 09:16 by: Katina Booker ([facility]) Discharge - Reset to Incomplete: 28-Oct-2022 10:10 by: Donn Trammell ( (Resident)) Discharge - Reconciliation: 28-Oct-2022 10:16 by: Donn Trmamell ( (Resident)) Discharge - Reset to Incomplete: 28-Oct-2022 11:05 by: Noemí Asif ( (Resident)) Discharge - Partial Reconciliation: 28-Oct-2022 11:06 by: Noemí Asif ( (Resident)) Discharge - Reconciliation: 28-Oct-2022 11:08 by: Katina Booker ([facility]) Discharge - Reset to Incomplete: 29-Oct-2022 07:20 by: Katina Booker ([facility]) Discharge - Partial Reconciliation: 29-Oct-2022 07:21 by: Katina Booker ([facility]) Discharge - Reconciliation: 29-Oct-2022 08:21 by: Katina Booker ([facility]) Discharge - Reset to Incomplete: 29-Oct-2022 11:27 by: Katina Booker ([facility]) Discharge - Reconciliation: 29-Oct-2022 11:31 by: Katina Booker ([facility]) Discharge - Reset to Incomplete: 29-Oct-2022 13:31 by: Katina Booker ([facility]) Discharge - Reconciliation: 29-Oct-2022 13:34 by: Katina Booker ([facility]) Home Medications EnteredHOME MEDICATIONS AT DISCHARGE DateReconciliation [...] not required Albuterol 90 micrograms/ Inhalation MDI (PROVENTIL VENTOLIN)DOSE = 2 inha (more content not included)... Normal [facility] Order Reconciliation Page 1 Admission [...] Notes: Was receiving vancomycin 1,250mg q12h at [facility], last dose given 1700 on 10/23. Vancomycin trough 17.4 obtained 10/23 16:19 Normal [facility] Patient Profile - Adult v2on [...] Health: Weight in kg60.1 kilogram(s)(1) Weight in cth160.4 pound(s) Weight Methodactual (measured) Scale Typebed Height [...] From History and Physical 24-Oct-2022 02:31 Normal [facility] SEDIMENTATION RATE, ERYTHROC YTEon 10-24-2022 SEDIMENTATION RATE, ERYTHROCYTE 80 mm/h High 0 - 30 [facility] Comment on above: Performed By: #### V ANCU #### [facility] [address] [place] [address] Sedimentation Rate, Erythroc yteon 10-24-2022 ESR (Bld) [Velocity] 80 mm/h above high threshold 0 - 30 [facility] Wilfrid Giang Work Phone: T-SPOT. TBon 10-24-2022 T-SPOT. TB Passed [facility] Wilfrid Giang Work Phone: T-SP[employer]. TB 0 1 [facility]- Wilfrid Reichhold Work Phone: T-SP[employer]. TB Negative See Below [facility] Wilfrid Giang Work Phone: [...] 10-23-2022 MYELOPEROXIDASE < 0.2 Normal <1.0 The [facility] Comment on above: Performed By: #### A NCA ROCHA VAS #### [facility] [address], [place], MYELOPEROXIDASE INTERPRETATION Negative Normal Negative The [facility] Comment on above: Performed By: #### A NCA ROCHA VAS #### [facility] [address], [place], PROTEINASE-3 < 0.2 Normal <1.0 The [facility] Comment on above: Performed By: #### A NCA ROCHA VAS #### [facility] [address], [place], PROTEINASE-3 INTERPRETATION Negative Normal Negative The [facility] Comment on above: Performed By: #### A NCA ROCHA VAS #### [facility] [address], [place], C-REACTIVE PROTEINon 023 CRP 4.6 mg/dL High <0.8 The [facility] Comment on above: Performed By: #### T SH HS, T3, CRP #### [facility] [address], [place], CLOSTRIDIUM DIFFICILEon 09-29 CLOSTRIDIUM DIFFICILE Negative Normal Negative The [facility] Comment on above: Order Comment: Resul ts obtained by using a real-time PCR based qualitative in vitro diagnostic test for the direct detection of the C. difficile toxin A gene (tcdA) and toxin B gene (tcdB) targets in stool specimens.Results should be interpreted in conjunction with information from the patient clinical evaluation and other diagnostic testing Performed By: #### C DD ####[facility] [id number] [facility] [place], [place] Care Plan Noteon 10-23-2022 Preparer Authentication Interface Message Text [facility] wait time is extensive per transfer. I spoke with pt and Domonique - they are agreeable to pursue . Please initiate transfer to Orbital surgery for biopsy Pt is accepted to [facility] by Dr. Jannette Eid, pending bed availability. However, as there is extensive wait time for the bed will initiate transfer. Normal [facility] Preparer Authentication Interface Message Text Problem: Routine Care: [...] and/or be maintained Outcome: Progressing Normal [facility] ERYTHROCYTE SEDIMENTATION RA Km 10-23-2022 ESR (Bld) [Velocity] 53 mm/h High <=30 [facility] Comment on above: Performed By: #### C OVID19 #### S [facility] [address] [place] [address], IMMUNOGLOBULIN Sudeep IgG [Mass/Vol] 842 mg/dL Normal [id number] [facility] Comment on above: Performed By: #### C OVID19 #### [facility] [address], [place], NOVEL CORONAVIRUS (COVID-19) on 10-23-2022 SARS-CoV-2 (COVID-19) RNA KANDY+probe Ql (Unsp spec) Not detected Normal Not Detected [facility] Comment on above: Order Comment: Not D etected results are indicative of the absence of SARS-CoV-2 in the specimen submitted for testing. False negative results are possible based on the timing and quality of specimen submitted for testing. This test is intended for use only under Emergency Use Authorization (EUA). This test was developed, and its performance characteristics determined by [facility] which is certified under CLIA as qualified to perform high complexity clinical laboratory testing. Result Comment: This assay was performed using [employer] RTPCR technology. Performed By: #### C OVID19 #### [facility] [address], [place], Progress Noteson 10-23-2022 Preparer Authentication Interface Message Text [id number] Transferred to via ambulette Normal [facility] Preparer Authentication Interface Message Text [id number] Received a call from that patient has a bed held for her. She will be going to [facility], [place] [address], Bed 0271. Requesting copy of chart to accompany pt. Call nursing report to [phone]. Cuca, [facility] notified. 2148 Ambulance request placed. Patient notified. Chart being prepped by [facility] [facility]. 2329 Report called SARWAT Pastrana. Pt transported via ambulette with all belongings. Pt updated her family of her transfer. Normal [facility] Preparer Authentication Interface Message Text Pharmacokinetic Dosing Service - VANCOMYCIN Name: Gracie Banuelos Age:[age] year old Gender: female Ht: 5' 3 Wt: no weight Indication: orbital cellulitis/NATIONAL ACCOUNT MANAGER (?) Desired Ranges: 15-20 Day of therapy: 4 Assessment and Recommendations: 10/23/22 PLAPPONI- Day4: orbital cellulitis/NATIONAL ACCOUNT MANAGER (?) ; Renal function: stable; Current level:17.4. [...] Source/Reason for Therapy Answer: Central Nervous System (NATIONAL ACCOUNT MANAGER) -- 10/20/221652 vancomycin dosing pharmacy consult Other, As Directed Question: Suspected Source/Reason for Therapy Answer: Central Nervous System (NATIONAL ACCOUNT MANAGER) -- Lab Values: Creatinine Date Value Ref Range Status 10/20/2022 0.56 0.50 - 1.10 mg/dL Final Lab Results Component Value Date/Time VANCTR 17.4 10/23/2022 04:19 PM VANCTR 16.6 10/21/2022 03:44 PM No results found for: VANCR Serum creatinine: 0.56 mg/dL 10/20/22 0910 Estimated creatinine clearance: 89.48 mL/min Culture(s): FRIEDA ANDERSON, [facility] - Department of Pharmacy Services Normal [facility] Preparer Authentication Interface Message Text CM aware of transfer process that has begun to [facility]. CM will remain available to assist with discharge planning and needs as warranted. Katina GALLOWAY, dissolver operator (8:30-4:00) Normal [facility] Preparer Authentication Interface Message Text Daily follow up visit [facility] No APD Color plates OU External OD notable for Entropion - [...] that did not have beds, sent to [facility] for possible admission for orbital cellulitis - [...] Syphilis Tb - Recommend transfer to or [facility] for oculoplastics care. The patient will likely [...] and AVS. Jaime Aggarwal MD Ophthalmology Resident Plan discussed with Dr. Marti Voss [facility] Preparer Authentication Interface Message Text ID FOLLOW UP [...] IV -Ophthalmology on board. Awaiting transfer to [facility] or for oculoplasty and biopsy to determine etiology due to concern for infiltrative process. -Consider repeat MRI orbit to reassess if transfer is delay. -Continue to monitor BM as she has diarrhea. Noted Cdiff negative. -Ok to remove contact precautions. ID will continue to follow Findings and recommendations discussed with Dr. Oliveira. Car Dorado MD ID fellow, PGY-4 Pager: [phone] Normal [facility] RHEUMATOID FACTORon 01-26-20 23 RHEUMATOID FACTOR < 10 Normal <10 [email or web address] Comment on above: Performed By: #### C OVID19 #### S [facility] LAB[facility]AT[facility] [address] [place] [address], SYPHILIS WITH CONFIRMATIONon 10-23-2022 SYPHILIS TOTAL (IGG/IGM) Non-Reactive Normal Non-Reactive [email or web address] Comment on above: Order Comment: Not D etected results are indicative of the absence of SARS-CoV-2 in the specimen submitted for testing. False negative results are possible based on the timing and quality of specimen submitted for testing. This test is intended for use only under Emergency Use Authorization (EUA). This test was developed, and its performance characteristics determined by [facility] which is certified under CLIA as qualified to perform high complexity clinical laboratory testing. Performed By: #### C OVID19 #### [facility] [address] [place] [address], TPPA Normal [email or web address] Comment on above: Order Comment: Not D etected results are indicative of the absence of SARS-CoV-2 in the specimen submitted for testing. False negative results are possible based on the timing and quality of specimen submitted for testing. This test is intended for use only under Emergency Use Authorization (EUA). This test was developed, and its performance characteristics determined by [email or web address] which is certified under CLIA as qualified to perform high complexity clinical laboratory testing. Performed By: #### C OVID19 #### [facility] [address] [place] [address], TRIIODOTHYRONINE (T3)on 09-29 T3 135.6 ng/dL Normal 87.0-179.0 [email or web address] Comment on above: Performed By: #### T SH HS, T3, CRP #### [facility] [address], [place], TSHon 10-23-2022 TSH 3.964 uIU/mL Normal 0.450-5.330 [email or web address] Comment on above: Result Comment: Refe ludin range for women as applicable: First Trimester: 0. 050 to 3.700 uIU/mL Second Trimester: 0. 310 to 4.350 uIU/mL Third Trimester: 0. 410 to 5.180 uIU/mL Performed By: #### T SH HS, T3, CRP #### [facility] [address], [place], Telephone Encounteron 2022 Preparer Authentication Interface Message Text Spoke to Domonique, pt sister Explained rationale for biopsy and transfer All questions answered Normal [facility] Preparer Authentication Interface Message Text PT's sister, Domonique calling in stating Dr. Aggarwal called and LVM for her regarding her sister that is inpatient. Please call Domonique back to discuss her sister Dx's [phone] ( PT will be home until 2:30 pm) Normal [facility] VANCOMYCIN TROUGHon 10-23-19 23 VANC TR 17.4 ug/mL Normal 10.0-20.0 [facility] Comment on above: Performed By: #### V ANC TR #### [facility] [address], [place], CBC WITH DIFFERENTIALon 09-29 Basophils (Bld) [#/Vol] 0.12 10*3/uL Normal 0.00-0.20 [facility] Comment on above: Performed By: #### C BCDSAT ####[facility] [id number] [place], [place], Basophils/100 WBC (Bld) 0.7 % Normal <=1.9 [facility] Comment on above: Performed By: #### C BCDSAT ####[facility] [id number] [place], [place], Eosinophils (Bld) [#/Vol] 0.54 10*3/uL Normal 0.00-0.70 [facility] Comment on above: Performed By: #### C BCDSAT ####[facility] [id number] [place], [place], Eosinophils/100 WBC (Bld) 3.4 % Normal 0.1-4.0 [email or web address] Comment on above: Performed By: #### C BCDSAT ####[facility] [id number] [place], [place], Erythrocyte distribution width (RBC) [Ratio] 14.1 % Normal 11.5-14.5 [facility] Comment on above: Performed By: #### C BCDSAT ####[facility] [id number] [place], [place], Hematocrit (Bld) [Volume fraction] 35.3 % Low 36.0-46.0 [facility] Comment on above: Performed By: #### C JANINAAT ####[facility] PATH[facility] [id number] [place] [address], Hemoglobin (Bld) [Mass/Vol] 11.4 g/dL Low 12.0-15.0 [facility] Comment on above: Performed By: #### C BCDSAT ####[facility] PATH[facility] [id number] [place] [address], Lymphocytes (Bld) [#/Vol] 2.11 10*3/uL Normal 1.00-4.80 [facility] Comment on above: Performed By: #### C JANINAAT ####[facility] PATH[facility] [id number] [place] [address], Lymphocytes/100 WBC (Bld) 13.2 % Low 24.0-44.0 The [facility] Comment on above: Performed By: #### C JANINAAT ####[facility] PATH[facility] [id number] [place] [address], MCH (RBC) [Entitic mass] 27.4 pg Normal 26.0-34.0 The [facility] Comment on above: Performed By: #### C BCMIGNONAT ####[facility] PATHOLOG[facility] [id number] [place] [address], MCHC (RBC) [Mass/Vol] 32.3 g/dL Normal 32.0-35.9 [facility] Comment on above: Performed By: #### C BCMIGNONAT ####[facility] PATHOLOG[facility] [id number] [place] [address], MCV (RBC) [Entitic vol] 85 fL Normal 80-100 T [facility] Comment on above: Performed By: #### C JANINAAT ####[facility] PATHOLOGY [id number] [place] [address], MONOCYTE DISTRIBUTION WIDTH Normal [facility] Comment on above: Performed By: #### C HALIMADSAT ####[facility] PATH[facility] [id number] [place], [place], Monocytes (Bld) [#/Vol] 1.11 10*3/uL High 0.20-1.00 [facility] Comment on above: Performed By: #### C JANINAAT ####[facility] PATH[facility] [id number] [place], [place], Monocytes/100 WBC (Bld) 7.0 % Normal 2.0-11.0 T [facility] Comment on above: Performed By: #### C JANINAAT ####[facility] PATH[facility] [id number] [place], [place], Neutrophils (Bld) [#/Vol] 12.11 10*3/uL High 1.50-8.00 [facility] Comment on above: Performed By: #### C JANINAAT ####[facility] PATHOLOGY [id number] [place] [address], Neutrophils/100 WBC (Bld) 75.7 % Normal 31.0-76.0 The [facility] Comment on above: Performed By: #### Nichole ROAAT ####[facility] PATH[facility] [id number] [place], [place], Platelet mean volume (Bld) [Entitic vol] 8.0 fL Normal 7.5-11.2 [facility] Comment on above: Performed By: #### C BCMIGNONAT ####S PATHOLOGY [id number] [place], [place], Platelets (Bld) [#/Vol] 332 10*3/uL Normal 150-400 [facility] Comment on above: Performed By: #### C BCMIGNONAT ####S PATHOLOGY [id number] [place], [place], RBC (Bld) [#/Vol] 4.16 10*6/uL Normal 4.00-5.20 [facility] Comment on above: Performed By: #### C BCMIGNONAT ####S PATHOLOGY [id number] [place], [place], WBC (Bld) [#/Vol] 16.0 10*3/uL High 4.5-11.5 [facility] Comment on above: Performed By: #### C BCDSAT ####[facility] [id number] [place], [place], Care Plan Noteon 10-22-2022 Preparer Authentication Interface Message Text Ophthal called me and recommended transfer to [facility]/ for Oculoplastic Orbital surgery for biopsy Patient requested me to talk with her sister, Domonique who is a HCW. I discussed the above recommendations and she preferred [facility] transfer. Will initiate the process tomorrow. Normal [facility] Preparer Authentication Interface Message Text Problem: Routine Care: [...] will be met Outcome: Progressing Normal [facility] Progress Noteson 10-22-2022 Preparer Authentication Interface Message Text Attestation signed by [...] she remains afebrile. Ophthalmology recommended transfer to [facility] or for oculoplasty due to concern of [...] (10/21) -Ophthalmology on board. Recommended transfer to [facility] or for oculoplasty and biopsy to determine etiology due to concern for infiltrative process. ID will continue to follow Findings and recommendations discussed with Dr. Oliveira. Car Dorado MD ID fellow, PGY-4 Pager: [phone] Normal The [facility] Message Text Teaching Physician Note: I saw and evaluated the patient. I personally obtained the [place] and critical portions of the history and [...] to orbital surgeon for biopsy: O-P at [facility] or Uri Peña MD Normal [facility] Message Text Daily follow up visit [...] into the pterygopalatine fossa; unclear [facility] Today's exam is [...] from ENT - Recommend transfer to or [facility] for oculoplastics care. The patient will likely [...] Seen and discussed with Dr. Kidd and DrKatie Voss [facility] Care Plan Noteon 10-21-2022 Preparer Authentication Interface Message Text Problem: Routine Care: [...] will be met Outcome: Progressing Normal [facility] Preparer Authentication Interface Message Text Problem: Routine Care: [...] will be met Outcome: Progressing Normal [facility] Consultson 10-21-2022 Preparer Authentication Interface Message Text Attestation signed by [...] pertinent surgical history. Allergies: Allergies Allergen Reactions Rembrandt [Acetaminophen-Hydrocod one] Penicillins Medications: Current Facility-Administered Medications [...] mg Nebulization Q4H RT 2.5 mg at 10/21/2256 albuterol (PROVENTIL) (2.5 MG/3ML) 0.083% nebulizer solution 2.5 mg Nebulization Q4H PRN [MAR Hold] ipratropium (ATROVENT) 0.02 % nebulizer solution 0.5 mg Nebulization Q4H RT 0.5 mg at 10/21/22 005 vancomycin (VANCOCIN) 1,250 mg/250 mL iv soln (ROOM TEMP PREMIX) 20 mg/kg Intravenous Every 12 hours 125 mL/hr at 10/21/22 1845 1,250 mg at 10/21/22 184 vancomycin dosing pharmacy consult Other As Directed [...] At Bedtime 5 mg at 10/20/22 2209 [id number] (CREON (more content not included)... Normal [facility] MR HEAD/ORBIT W/Oon 10-21-19 MR HEAD/ORBIT [...] and diffuse abnormal infiltration throughout the right clinical trial coordinator space with asymmetric enlargement of the right [...] pterygopalatine fossa and diffusely throughout the right clinical trial coordinator space with asymmetry of the muscles of mastication. Additional mild enlargement of the right inferior and lateral rectus. These findings are highly concerning for invasive fungal sinusitis until proven otherwise. 3. Mild asymmetric right proptosis. MACRO: Notification of the critical finding of suspected invasive fungal sinusitiswas initiated at 11:27 AM EST on 10/21/2022. Jose Guadalupe Kamara successfully contacted Dr. Daniel Rapp at 11:27 AM EST on 10/21/2022, via telephone, who acknowledged the critical finding with read back verification. (-CF-) Normal [facility] MR ORBIT W/+W/Oon 10-21-2022 MR ORBIT W/+W/O EXAMINATION: MR ORBI T W/+W/O 10/21/2022 02:17 PM CLINICAL HISTORY: Periorbital cellulitis ASSOCIATED DIAGNOSIS: Periorbital cellulitis ORDERING PROVIDER: [facility] TECHNOLOGISTS NOTE: COMPARISON: None TECHNIQUE: Patient questionnaire [...] infiltration of the right muscles of the clinical trial coordinator (pterygoids and the temporalis), retroantral fat pad [...] sinus are normal. MACRO: None Normal [facility] Progress Noteson 10-21-2022 Preparer Authentication Interface Message Text [address] Stein requesting robitussin. Normal [facility] Preparer Authentication Interface Message Text Pharmacokinetic Dosing Service - VANCOMYCIN Name: Gracie Banuelos Age:[age] year old Gender: female Ht: 5' 3 Wt: no weight Indication: Central Nervous System (NATIONAL ACCOUNT MANAGER) and orbital cellulitis Desired Ranges: 15-20 Day of therapy: 2 Assessment and Recommendations: 10/21/22 HROBINSON1- Day 2: Central Nervous System (NATIONAL ACCOUNT MANAGER) and orbital cellulitis ; Renal function: stable; No change recommended. Next level Due:prior to 4th dose. Level not ordered Current Dose Active Vancomycin Orders (From admission, onward) Start Stop 10/20/221654 vancomycin (VANCOCIN) 1,250 mg/250 mL iv soln (ROOM TEMP PREMIX) 20 mg/kg, Intravenous, EVERY 12 HOURS Question: Suspected Source/Reason for Therapy Answer: Central Nervous System (NATIONAL ACCOUNT MANAGER) -- 10/20/221652 vancomycin dosing pharmacy consult Other, As Directed Question: Suspected Source/Reason for Therapy Answer: Central Nervous System (NATIONAL ACCOUNT MANAGER) -- Lab Values: Creatinine Date Value Ref Range Status 10/20/2022 0.56 0.50 - 1.10 mg/dL Final Lab Results Component Value Date/Time VANCTR 16.6 10/21/2022 03:44 PM No results found for: VANCR Serum creatinine: 0.56 mg/dL 10/20/22 0910 Estimated creatinine clearance: 89.48 mL/min Culture(s): PENDING. Chelsea Montilla [facility] - Department of Pharmacy Services Normal [email or web address] Preparer Authentication Interface Message Text Follow up visit [...] MD and Jaime Aggarwal MD Normal [facility] Preparer Authentication Interface Message Text Pt states that she seeing double with both eyes open The images are vertical, one on top of the other. It doesn't happen all day. It comes and goes. VA: OD cc: 20/30+3 OS:cc: 20/40-2 Ph: 20/25-1 Pupil OU 3/round/minimal/none EOM: Full CVF OU: Full IOP OD: 11 OS:08 Normal [facility] VANCOMYCIN TROUGHon 10-21-19 23 VANC TR 16.6 ug/mL Normal 10.0-20.0 [email or web address] Comment on above: Performed By: #### V ANC TR ####S PATHOLOGY [id number] [place], [place], BASIC METABOLIC PANELon 09-29 Anion gap [Moles/Vol] 11 mmol/L Normal 10-20 [email or web address] Comment on above: Performed By: #### C H8 #### S PATHOLOGY LABORATORY [address] [place] [address], Calcium [Mass/Vol] 9.4 mg/dL Normal 8.4-10.4 [email or web address] Comment on above: Performed By: #### C H8 #### S PATHOLOGY LABORATORY [address] [place] [address], Chloride [Moles/Vol] 102 mmol/L Normal 97-111 [email or web address] Comment on above: Performed By: #### C H8 #### [facility] [address] [place] [address], CO2 [Moles/Vol] 28 mmol/L Normal 21-30 [email or web address] Comment on above: Performed By: #### C H8 #### [facility] [address] [place] [address], Creatinine [Mass/Vol] 0.56 mg/dL Normal 0.50-1.10 [facility] Comment on above: Performed By: #### C H8 #### S PATHOLOGY LABORATORY [address] [place] [address], ESTIMATED GFR (CKD-EPI) 105 mL/min/1.73sqm Normal >=60 [facility] Comment on above: Result Comment: 2020 CKD EPI Equation using Creatinine without Race Comment: Estimated glomerular filtration rate (eGFR) is calculated without a race coefficient. Values should be interpreted in the context of the patient's full clinical presentation. Reference: 1. Judson C, Amanda M, Isamar DC, et al.. A Unifying Approach for GFR Estimation: Recommendations of the NKF-ASN Task Force on Reassessing the Inclusion of Race in Diagnosing Kidney Disease. Filipino Journal of Kidney Diseases 2021;79(2):268-88.e1. 2. N Engl J Med 2020 Vol. 385 Issue 19 Pages 6205-1321 Performed By: #### C H8 #### S PATHOLOGY LABORATORY [address] [place] [address], Glucose [Mass/Vol] 96 mg/dL Normal 68-110 [facility] Comment on above: Performed By: #### C H8 #### S PATHOLOGY LABORATORY [address] [place] [address], Potassium [Moles/Vol] 4.3 mmol/L Normal 3.3-5.3 [facility] Comment on above: Performed By: #### C H8 #### S PATHOLOGY LABORATORY [address] [place] [address], Sodium [Moles/Vol] 137 mmol/L Normal 135-148 [facility] Comment on above: Performed By: #### C H8 #### S PATHOLOGY LABORATORY [address] [place] [address], Urea nitrogen [Mass/Vol] 10 mg/dL Normal 8-22 [facility] Comment on above: Performed By: #### C H8 #### S PATHOLOGY LABORATORY [address] [place] [address], CBC WITH DIFFERENTIALon 09-29 Basophils (Bld) [#/Vol] 0.19 10*3/uL Normal 0.00-0.20 [facility] Comment on above: Performed By: #### C OVID19 #### [facility] PATH[facility] [address] [place] [address], Basophils/100 WBC (Bld) 1.3 % Normal <=1.9 T [facility] Comment on above: Performed By: #### C OVID19 #### [facility] PATH[facility] [address] [place] [address], Eosinophils (Bld) [#/Vol] 0.52 10*3/uL Normal 0.00-0.70 [facility] Comment on above: Performed By: #### C OVID19 #### [facility] [address] [place] [address], Eosinophils/100 WBC (Bld) 3.5 % Normal 0.1-4.0 [facility] Comment on above: Performed By: #### C OVID19 #### [facility] [address] [place] [address], Erythrocyte distribution width (RBC) [Ratio] 14.0 % Normal 11.5-14.5 [facility] Comment on above: Performed By: #### C OVID19 #### [facility] [address] [place] [address], Hematocrit (Bld) [Volume fraction] 37.4 % Normal 36.0-46.0 [facility] Comment on above: Performed By: #### C OVID19 #### [facility] [address] [place] [address], Hemoglobin (Bld) [Mass/Vol] 12.4 g/dL Normal 12.0-15.0 [facility] Comment on above: Performed By: #### C OVID19 #### [facility] [address] [place] [address], Lymphocytes (Bld) [#/Vol] 2.87 10*3/uL Normal 1.00-4.80 [facility] Comment on above: Performed By: #### C OVID19 #### [facility] [address] [place] [address], Lymphocytes/100 WBC (Bld) 19.5 % Low 24.0-44.0 [facility] Comment on above: Performed By: #### C OVID19 #### [facility] [address] [place] [address], MCH (RBC) [Entitic mass] 28.1 pg Normal 26.0-34.0 [facility] Comment on above: Performed By: #### C OVID19 #### [facility] [address] [place] [address], MCHC (RBC) [Mass/Vol] 33.2 g/dL Normal 32.0-35.9 [facility] Comment on above: Performed By: #### C OVID19 #### [facility] [address] [place] [address], MCV (RBC) [Entitic vol] 85 fL Normal 80-100 T [facility] Comment on above: Performed By: #### C OVID19 #### [facility] [address] [place] [address], MONOCYTE DISTRIBUTION WIDTH 19 Normal <=20 The [facility] Comment on above: Performed By: #### C OVID19 #### [facility] [address] [place] [address], Monocytes (Bld) [#/Vol] 1.30 10*3/uL High 0.20-1.00 The [facility] Comment on above: Performed By: #### C OVID19 #### [facility] [address] [place] [address], Monocytes/100 WBC (Bld) 8.8 % Normal 2.0-11.0 T [facility] Comment on above: Performed By: #### C OVID19 #### [facility] [address] [place] [address], Neutrophils (Bld) [#/Vol] 9.87 10*3/uL High 1.50-8.00 The [facility] Comment on above: Performed By: #### C OVID19 #### [facility] [address] [place] [address], Neutrophils/100 WBC (Bld) 66.9 % Normal 31.0-76.0 [email or web address] Comment on above: Performed By: #### C OVID19 #### [facility] [address] [place], [place], Platelet mean volume (Bld) [Entitic vol] 8.1 fL Normal 7.5-11.2 [email or web address] Comment on above: Performed By: #### C OVID19 #### [facility] [address], [place], Platelets (Bld) [#/Vol] 359 10*3/uL Normal 150-400 [facility] Comment on above: Performed By: #### C OVID19 #### [facility] [address], [place], RBC (Bld) [#/Vol] 4.41 10*6/uL Normal 4.00-5.20 [facility] Comment on above: Performed By: #### C OVID19 #### [facility] [address], [place], WBC (Bld) [#/Vol] 14.8 10*3/uL High 4.5-11.5 [facility] Comment on above: Performed By: #### C OVID19 #### [facility] [address] [place], [place], CT CHEST W/O CONTRASTon 09-29 CT [...] risk, a follow-up CHEST W/O CONTRAST (code: [id number]) is optional at 12 months. 4. Severe coronary artery calcifications. Mitral annular calcification. MACRO: None Normal [facility] Consultson 10-20-2022 Preparer Authentication Interface Message Text Attestation signed by [...] was started on clindamycin yesterday in the [place] ED with improvement in her symptoms. She [...] sinus. Other Studies/Information: I personally reviewed the pmo consultant notes or primary team notes as [...] Head AND Neck Surgery ENT Team Pager: [phone] Normal [facility] ED Provider Noteson 10-20-19 Preparer Authentication Interface Message Text ENT and med [...] evaluated, recommend admission for IV abx, further [id number] as delineated in their note. No indication for biopsy at this time. Will repage team 7 med and update. Janeth Kamara MD Normal [facility] Preparer Authentication Interface Message Text EMERGENCY DEPARTMENT - VISIT NOTE ------- HISTORY OF PRESENT ILLNESS --- Chief Complaint Patient presents with Eye pain Transfer from osh for R eye cellulitis Rigger Third: not needed - patient preferred language is Uruguayan. The history is provided by the Patient. [...] beds available at OSH and transferred to [facility] for admission. Currently on clindamycin. Morphine [...] incorporated. Review of External (Non- ED) Notes: [facility] ED notes reviewed and show Intake notes [...] [address] 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 Bush, accepted pending final optho recs [MH] 1422 Discussed with team 7 not accepted due to need for orbital biopsy [MH] 1424 Discussed with ENT - will see patient if orbital biopsy is possible [MH] 1503 Discussed with ENT, Bx felt not necessary will see patient [MH] ED Course User Index [MH] Rick Vaughn MD Assessment AND Plan: 57 year old F transferred from OSH for 1 month of eye pain/swelling, found to have septal/preseptal cellulitis w/out abscess, currently on clindamycin. 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 Pain treated with morphine/zofran. (more content not included)... Normal [facility] Influenza virus A and B and SARS-CoV-2 (COVID-19) Ag panel - Upper respiratory specimOrdered By: Dr. 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 Truong Voss [facility] Telephone Encounteron 2022 Preparer Authentication Interface Message Text I was called by [facility] regarding a transfer from [facility]. That facility is requesting transfer because patient [...] 13, ESR/CRP elevated. Discussed with provider at [facility], advised they should discuss case with ophthalmology as patient may benefit from ED to ED transfer rather than direct admission to medicine for earlier ophthalmology evaluation. Patient is not accepted to medicine at this time, 5:18 AM 10/20/22. Jeffy Garner MD Normal [email or web address] Absolute lymphocyte countOrd ered By: Dr. Dykes on 10-19-2022 Lymphocytes Auto (Unsp spec) [#/Vol] 3.28 10*3/uL 0.83-4.51 [facility] Basophil percentageOrdered B y: Dr. Dykes on 10-19-2022 Basophils/100 WBC (Bld) 0.8 % 0-1 [facility] Chloride [Moles/Vol] 107 mmol/L 98-[facility] Eosinophils/100 WBC (Bld) 4.4 % 0-5 [facility] Glucose [Mass/Vol] 97 mg/dL 74-106 [facility] Neutrophils (Bld) [#/Vol] 8.8 10*3/uL 2.0-7.7 [facility] Neutrophils/100 WBC (Bld) 63.4 % 47-70 [facility] Potassium [Moles/Vol] 3.8 mmol/L 3.5-5.1 [facility] Sodium [Moles/Vol] 137 mmol/L 136-145 [facility] WBC (Bld) [#/Vol] 13.9 10*3/uL 4.4-11.0 [facility] Blood erythrocytes count (nu mber/volume)Ordered By: Dr. Dykes on 10-19-2022 RBC (Bld) [#/Vol] 4.87 10*6/uL 4.2-5.4 [facility] Blood hemoglobin measurement (mass/volume)Ordered By: Dr. Dykes on 10-19-2022 Hemoglobin (Bld) [Mass/Vol] 13.6 g/dL 12.0-15.0 [facility] Blood lymphocytes/100 leukoc ytesOrdered By: Dr. Dykes on 10-19-2022 Lymphocytes/100 WBC (Bld) 23.6 % 19-41 [facility] Blood monocytes/100 leukocyt esOrdered By: Dr. Dykes on 10-19-2022 Monocytes/100 WBC (Bld) 7.1 % 0-10 [facility] Blood platelet mean volumeOr dered By: Dr. Dykes on 10-19-2022 Platelet mean volume (Bld) [Entitic vol] 9.6 fL 6.2-12.0 [facility] Determination of erythrocyte mean corpuscular volume (MCV)Ordered By: Dr. Dykes on 10-19-2022 MCV (RBC) [Entitic vol] 85.0 fL 81-99 [facility] Erythrocyte sedimentation ra teOrdered By: Dr. Dykes on 10-19-2022 ESR (Bld) [Velocity] 75 mm/h 0-30 [facility] Hematocrit Auto (Bld) [Volum e fraction]Ordered By: Dr. Dykes on 10-19-2022 Hematocrit (Bld) [Volume fraction] 41.4 % 37-47 [facility] Influenza virus A and B and SARS-CoV-2 (COVID-19) Ag panel - Upper respiratory specimOrdered By: Dr. Dykes on 10-19-2022 SARS-CoV-2 (COVID-19) RNA KANDY+probe Ql (Resp) [facility] Laboratory - Chemistry and C hemistry - challengeOrdered By: Dr. Dykes on 10-19-2022 CO2 [Moles/Vol] 26.0 mmol/L 21.0-32.0 [facility] Urea nitrogen/Creatinine [Mass ratio] 11.3 mg/mg 10-20 [facility] Laboratory - Hematology and Cell countsOrdered By: Dr. Dykes on 10-19-2022 Erythrocyte distribution width (RBC) [Entitic vol] 41.5 fL 35.1-43.9 [facility] Erythrocyte distribution width (RBC) [Ratio] 13.2 % 11.6-14.6 [facility] Immature granulocytes/100 WBC (Bld) 0.700 % 0.0-0.9 [facility] Comment on above: IG% - Immature Granu locytes (promyelocytes, myelocytes and metamyelocytes) > 1% indicates that a LEFT SHIFT is Present. MCH (RBC) [Entitic mass] 27.9 pg 27.0-32.0 [facility] Nucleated RBC/100 WBC (Bld) [Ratio] 0 % 0-5 [facility] MCHC Auto (RBC) [Mass/Vol]Or dered By: Dr. Dykes on 10-19-2022 MCHC (RBC) [Mass/Vol] 32.9 g/dL 32-36 [facility] No Panel InformationOrdered By: Dr. Dykes on 10-19-2022 Estimated Creatinine Clearance Calc 80.82 ml/min [facility] Estimated GFR (MDRD) Amer 127 mL/min >60 [facility] Comment on above: GFR Calc Estimated GFR (MDRD) Non-Af Amer 105 mL/min >60 [facility] Comment on above: Non- GFR Calc Platelets bldOrdered By: Dr. Dykes on 10-19-2022 Platelets (Bld) [#/Vol] 384 10*3/uL 150-450 [facility] Serum or plasma C reactive p rotein measurement (mass/volume)Ordered By: Dr. Dykes on 10-19-2022 CRP [Mass/Vol] 42.60 mg/L 0.0-3.0 [facility] Comment on above: C-Reactive Protein ( CRP) provides useful information for thediagnosis, therapy and monitoring of inflammatory processesand associated diseases. For the evaluation of Relative Riskfor Cardiovascular Disease, a High Sensitivity CRP (HSCRP)should be ordered. Serum or plasma calcium esthela urement (mass/volume)Ordered By: Dr. Dykes on 10-19-2022 Calcium [Mass/Vol] 9.5 mg/dL 8.5-10.1 [facility] Serum or plasma creatinine m easurement (mass/volume)Ordered By: Dr. Dykes on 10-19-2022 Creatinine [Mass/Vol] 0.62 mg/dL 0.55-1.02 [facility] Comment on above: The validity of the calculated GFR & GFRAA in patients over 70 years has not been determined. Clinical correlation is essential. Serum or plasma urea nitroge n measurement (mass/volume)Ordered By: Dr. Dykes on 10-19-2022 Urea nitrogen [Mass/Vol] 7 mg/dL 7-18 [facility] Thin prep Papanicolaou smear with manual screeningOrdered By: Dr. Dykes on 10-19-2022 Thin prep Papanicolaou smear with manual screening 4 5-15 [facility] Laboratory - Microbiology an d Antimicrobial susceptibilityOrdered By: Dr. Handy on 08-28-2022 Bacteria identified Cx Nom (Bld) No growth in 5 days. [facility] Culture, urineOrdered By: Dr Max Handy on 08-24-2022 Bacteria identified Cx Nom (U) Positive [facility] Absolute lymphocyte countOrd ered By: Dr. Handy on 08-22-2022 Lymphocytes Auto (Unsp spec) [#/Vol] 2.04 10*3/uL 0.83-4.51 [facility] Basophil percentageOrdered B y: Dr. Handy on 08-22-2022 Basophil percentage 0 SEEN /hpf 0-5 [facility] Basophils/100 WBC (Bld) 0.3 % 0-1 [facility] Bilirubin [Mass/Vol] 0.20 mg/dL 0.20-1.00 [facility] Comment on above: For patients on eltr ombopag therapy, use of Dimension Tiff TBIL is not recommended. Chloride [Moles/Vol] 95 mmol/L 98-107 [facility] Eosinophils/100 WBC (Bld) 0.6 % 0-5 [facility] Glucose [Mass/Vol] 115 mg/dL 74-106 [facility] Comment on above: Fasting Glucose resu lt from 100 to 125 mg/dL suggests IMPAIRED HOMEOSTASIS per A.D.A. criteria. Lactate [Moles/Vol] 0.7 mmol/L 0.4-2.0 [facility] Neutrophils (Bld) [#/Vol] 6.4 10*3/uL 2.0-7.7 [facility] Neutrophils/100 WBC (Bld) 66.3 % 47-70 [facility] Potassium [Moles/Vol] 3.9 mmol/L 3.5-5.1 [facility] Protein [Mass/Vol] 7.5 g/dL 6.4-8.2 [facility] Sodium [Moles/Vol] 131 mmol/L 136-145 [facility] WBC (Bld) [#/Vol] 9.6 10*3/uL 4.4-11.0 [facility] Bilirubin Test strip Ql (U)O rdered By: Dr. Handy on 08-22-2022 Bilirubin Ql (U) Negative Negative [facility] Blood erythrocytes count (nu mber/volume)Ordered By: Dr. Handy on 08-22-2022 RBC (Bld) [#/Vol] 5.09 10*6/uL 4.2-5.4 [facility] Blood hemoglobin measurement (mass/volume)Ordered By: Dr. Handy on 08-22-2022 Hemoglobin (Bld) [Mass/Vol] 15.2 g/dL 12.0-15.0 [facility] Blood lymphocytes/100 leukoc ytesOrdered By: Dr. Handy on 08-22-2022 Lymphocytes/100 WBC (Bld) 21.2 % 19-41 [facility] Blood monocytes/100 leukocyt esOrdered By: Dr. Handy on 08-22-2022 Monocytes/100 WBC (Bld) 11.3 % 0-10 [facility] Blood platelet mean volumeOr dered By: Dr. Handy on 08-22-2022 Platelet mean volume (Bld) [Entitic vol] 10.8 fL 6.2-12.0 [facility] Determination of erythrocyte mean corpuscular volume (MCV)Ordered By: Dr. Handy on 08-22-2022 MCV (RBC) [Entitic vol] 86.1 fL 81-99 [facility] Hematocrit Auto (Bld) [Volum e fraction]Ordered By: Dr. Handy on 08-22-2022 Hematocrit (Bld) [Volume fraction] 43.8 % 37-47 [facility] INR in Blood by Coagulation assayOrdered By: Dr. Handy on 08-22-2022 INR Coag (Bld) [Relative time] 0.9 {INR} [facility] Influenza virus A and B and SARS-CoV-2 (COVID-19) Ag panel - Upper respiratory specimOrdered By: Dr. Handy on 08-22-2022 SARS-CoV-2 (COVID-19) RNA KANDY+probe Ql (Resp) [facility] Ketones Test strip Ql (U)Ord ered By: Dr. Handy on 08-22-2022 Ketones Ql (U) Negative Negative [facility] Laboratory - Chemistry and C hemistry - challengeOrdered By: Dr. Handy on 08-22-2022 ALP [Catalytic activity/Vol] 108 U/L 45-117 [facility] ALT [Catalytic activity/Vol] 21 U/L 13-56 [facility] CO2 [Moles/Vol] 30.0 mmol/L 21.0-32.0 [facility] Globulin (S) [Mass/Vol] 4.1 g/dL 2.2-4.2 [facility] Urea nitrogen/Creatinine [Mass ratio] 15.0 mg/mg 10-20 [facility] Laboratory - CoagulationOrde red By: Dr. Handy on 08-22-2022 aPTT Coag (Bld) [Time] 28.9 s 24.1-36.2 [facility] PT Coag (PPP) [Time] 12.3 s 11.7-14.9 [facility] Laboratory - Hematology and Cell countsOrdered By: Dr. Handy on 08-22-2022 Erythrocyte distribution width (RBC) [Entitic vol] 42.4 fL 35.1-43.9 [facility] Erythrocyte distribution width (RBC) [Ratio] 13.4 % 11.6-14.6 [facility] Immature granulocytes/100 WBC (Bld) 0.300 % 0.0-0.9 [facility] Comment on above: IG% - Immature Granu locytes (promyelocytes, myelocytes and metamyelocytes) > 1% indicates that a LEFT SHIFT is Present. MCH (RBC) [Entitic mass] 29.9 pg 27.0-32.0 [facility] Nucleated RBC/100 WBC (Bld) [Ratio] 0 % 0-5 [facility] MCHC Auto (RBC) [Mass/Vol]Or dered By: Dr. Handy on 08-22-2022 MCHC (RBC) [Mass/Vol] 34.7 g/dL 32-36 [facility] Mucus LM Ql (Urine sed)Order ed By: Dr. Handy on 08-22-2022 Mucus Ql (Urine sed) 0 SEEN /hpf [facility] Nitrite Test strip Ql (U)Ord ered By: Dr. Handy on 08-22-2022 Nitrite Ql (U) Negative Negative [facility] No Panel InformationOrdered By: Dr. Handy on 08-22-2022 Estimated Creatinine Clearance Calc 83.51 ml/min [facility] Estimated GFR (MDRD) Amer 132 mL/min >60 [facility] Comment on above: GFR Calc Estimated GFR (MDRD) Non-Af Amer 109 mL/min >60 [facility] Comment on above: Non- GFR Calc Troponin I High Sensitivity 25 pg/mL 3.0-54.0 [facility] Comment on above: Please Note: [place] t Units and Gender Specific Reference Ranges. For more information see Policy Stat Procedure Tiff High Sensitivity Troponin (TNIH) and attachments. Platelets bldOrdered By: Dr. Handy on 08-22-2022 Platelets (Bld) [#/Vol] 226 10*3/uL 150-450 [facility] Protein Test strip Ql (U)Ord ered By: Dr. Handy on 08-22-2022 Protein Ql (U) Negative Negative [facility] RSV Ag EIAOrdered By: Dr. Kam lou on 08-22-2022 RSV Ag Immune stain Ql (Tiss) [facility] Serum or plasma albumin esthela urement (mass/volume)Ordered By: Dr. Handy on 08-22-2022 Albumin [Mass/Vol] 3.4 g/dL 3.2-5.0 [facility] Serum or plasma albumin/glob ulin mass ratioOrdered By: Dr. Handy on 08-22-2022 Albumin/Globulin [Mass ratio] 0.8 {ratio} 0.9-2.4 [facility] Serum or plasma calcium esthela urement (mass/volume)Ordered By: Dr. Handy on 08-22-2022 Calcium [Mass/Vol] 8.7 mg/dL 8.5-10.1 [facility] Serum or plasma creatinine m easurement (mass/volume)Ordered By: Dr. Handy on 08-22-2022 Creatinine [Mass/Vol] 0.60 mg/dL 0.55-1.02 [facility] Comment on above: The validity of the calculated GFR & GFRAA in patients over 70 years has not been determined. Clinical correlation is essential. Serum or plasma urea nitroge n measurement (mass/volume)Ordered By: Dr. Handy on 08-22-2022 Urea nitrogen [Mass/Vol] 9 mg/dL 7-18 [facility] Squamous epithelial cells de tection in urine sediment by light microscopyOrdered By: Dr. Handy on 08-22-2022 Epithelial cells.squamous LM Ql (Urine sed) 0-5 SEEN /hpf 5-10 [facility] Thin prep Papanicolaou smear with manual screeningOrdered By: Dr. Handy on 08-22-2022 Thin prep Papanicolaou smear with manual screening 17 U/L 15-37 [facility] Thin prep Papanicolaou smear with manual screening 6 5-15 [facility] Urine blood detectionOrdered By: Dr. Handy on 08-22-2022 RBC Ql (U) Negative Negative [facility] RBC Ql (U) 0 SEEN /hpf 0-5 [facility] Urine clarityOrdered By: Dr. Handy on 08-22-2022 Clarity (U) Sl. Cloudy Clear [facility] Urine color determinationOrd ered By: Dr. Handy on 08-22-2022 Color (U) [facility] Urine glucose detectionOrder ed By: Dr. Handy on 08-22-2022 Glucose Ql (U) Normal mg/dl Normal [facility] Urine leukocyte esterase det ection by dipstickOrdered By: Dr. Handy on 08-22-2022 Leukocyte esterase Test strip Ql (U) Negative Negative [facility] Urine pHOrdered By: Dr. Rashad lay on 08-22-2022 pH (U) 6.5 [pH] 5.0 - 8.0 [facility] Urine sediment bacteria coun t by microscopy (number/high power field)Ordered By: Dr. Handy on 08-22-2022 Bacteria LM.HPF (Urine sed) [#/Area] RARE /hpf None Seen [facility] Urine specific gravity measu rementOrdered By: Dr. Handy on 08-22-2022 Specific gravity (U) [Rel density] 1.005 1.002-1.030 [facility] Urobilinogen Auto test strip Ql (U)Ordered By: Dr. Handy on 08-22-2022 Urobilinogen Ql (U) Normal mg/dl Normal [facility] Absolute lymphocyte counton 03-03-2022 Lymphocytes Auto (Unsp spec) [#/Vol] 2.54 10*3/uL 0.83-4.51 [facility] Work Phone: Basophil percentageon 2021 Basophils/100 WBC (Bld) 0.8 % 0-1 [facility] Work Phone: Chloride [Moles/Vol] 107 mmol/L 98-107 [facility] Work Phone: Eosinophils/100 WBC (Bld) 2.4 % 0-5 [facility] Work Phone: Glucose [Mass/Vol] 149 mg/dL 74-106 [facility] Work Phone: Comment on above: Fasting Glucose resu lt greater than or equal to 126 mg/dL suggests DIABETES MELLITUS per A.D.A. criteria. Neutrophils (Bld) [#/Vol] 7.8 10*3/uL 2.0-7.7 [facility] Work Phone: Neutrophils/100 WBC (Bld) 66.0 % 47-70 [facility] Work Phone: Potassium [Moles/Vol] 3.6 mmol/L 3.5-5.1 [facility] Work Phone: Sodium [Moles/Vol] 139 mmol/L 136-145 [facility] Work Phone: WBC (Bld) [#/Vol] 11.8 10*3/uL 4.4-11.0 [facility] Work Phone: Blood erythrocytes count (nu mber/volume)on 03-03-2022 RBC (Bld) [#/Vol] 4.79 10*6/uL 4.2-5.4 [facility] Work Phone: Blood hemoglobin measurement (mass/volume)on 03-03-2022 Hemoglobin (Bld) [Mass/Vol] 13.4 g/dL 12.0-15.0 [facility] Work Phone: Blood lymphocytes/100 leukoc yteson 03-03-2022 Lymphocytes/100 WBC (Bld) 21.6 % 19-41 [facility] Work Phone: Blood monocytes/100 leukocyt eson 03-03-2022 Monocytes/100 WBC (Bld) 8.4 % 0-10 [facility] Work Phone: Blood platelet mean volumeon 03-03-2022 Platelet mean volume (Bld) [Entitic vol] 10.4 fL 6.2-12.0 [facility] Work Phone: [phone] Determination of erythrocyte mean corpuscular volume (MCV)on 03-03-2022 MCV (RBC) [Entitic vol] 89.4 fL 81-99 [facility] Work Phone: [phone] Hematocrit Auto (Bld) [Volum e fraction]on 03-03-2022 Hematocrit (Bld) [Volume fraction] 42.8 % 37-47 [facility] Work Phone: [phone] Laboratory - Chemistry and C hemistry - challengeon 03-03-2022 CO2 [Moles/Vol] 27.0 mmol/L 21.0-32.0 [facility] Work Phone: [phone] Urea nitrogen/Creatinine [Mass ratio] 6.7 mg/mg 10-20 [facility] Work Phone: [phone] Laboratory - Hematology and Cell countson 03-03-2022 Erythrocyte distribution width (RBC) [Entitic vol] 45.1 fL 35.1-43.9 [facility] Work Phone: [phone] Erythrocyte distribution width (RBC) [Ratio] 13.8 % 11.6-14.6 [facility] Work Phone: [phone] Immature granulocytes/100 WBC (Bld) 0.800 % 0.0-0.9 [facility] Work Phone: [phone] Comment on above: IG% - Immature Granu locytes (promyelocytes, myelocytes and metamyelocytes) > 1% indicates that a LEFT SHIFT is Present. MCH (RBC) [Entitic mass] 28.0 pg 27.0-32.0 [facility] Work Phone: [phone] Nucleated RBC/100 WBC (Bld) [Ratio] 0 % 0-5 [facility] Work Phone: [phone] MCHC Auto (RBC) [Mass/Vol]on 03-03-2022 MCHC (RBC) [Mass/Vol] 31.3 g/dL 32-36 [facility] Work Phone: [phone] No Panel Informationon 06-06 -2022 Estimated Creatinine Clearance Calc 84.54 ml/min [facility] Work Phone: Estimated GFR (MDRD) Amer 131 mL/min >60 [facility] Work Phone: Comment on above: GFR Calc Estimated GFR (MDRD) Non-Af Amer 109 mL/min >60 [facility] Work Phone: Comment on above: Non- GFR Calc SARS-CoV-2 & FLU Antigen (Rapid) [facility] Work Phone: Troponin I High Sensitivity 14 pg/mL 3.0-54.0 [facility] Work Phone: Comment on above: Please Note: New [place] t Units and Gender Specific Reference Ranges. For more information see Policy Stat Procedure Tiff High Sensitivity Troponin (TNIH) and attachments. Platelets bldon 03-03-2022 Platelets (Bld) [#/Vol] 251 10*3/uL 150-450 [facility] Work Phone: Serum or plasma calcium esthela urement (mass/volume)on 03-03-2022 Calcium [Mass/Vol] 9.0 mg/dL 8.5-10.1 [facility] Work Phone: Serum or plasma creatinine m easurement (mass/volume)on 03-03-2022 Creatinine [Mass/Vol] 0.60 mg/dL 0.55-1.02 [facility] Work Phone: Comment on above: The validity of the calculated GFR & GFRAA in patients over 70 years has not been determined. Clinical correlation is essential. Serum or plasma urea nitroge n measurement (mass/volume)on 03-03-2022 Urea nitrogen [Mass/Vol] 4 mg/dL 7-18 [facility] Work Phone: Thin prep Papanicolaou smear with manual screeningon 03-03-2022 Thin prep Papanicolaou smear with manual screening 5 5-15 [facility] Work Phone: ANES Pily 12-05-2019 ANES POST HNO ID: [id number] Author: Mark Saab Service: Anesthesiology Author Type: Physician Type: Anesthesia PostOp Filed: 12/05/2019 1:36 PM Note Text: POST ANESTHESIA EVALUATION NOTE SERVICE DATE: 12/05/2019 SERVICE TIME: 1:36 PM : 1965 Vitals: 12/05/1956 Temp: 36 ?C (96.8 ?F) 12/05/19 0654 [...] 05, 2019 TIME: 1:36 PM PAGER/CONTACT #: [phone] [facility] ANES PREOPon 12-05-2019 ANES PREOP HNO ID: [id number] Author: Mark Saab Service: Anesthesiology Author Type: Physician Type: Anesthesia PreOp Filed: 12/05/2019 7:50 AM Note Text: ANESTHESIOLOGY DAY OF SURGERY NOTE SERVICE DATE: 12/05/2019 SERVICE TIME: 7:47 AM : 1965 Procedure(s) (LRB): ENDOSCOPY UPPER GI W/ ENDOSCOPIC ULTRASOUND EXAMINATION, (Left) Surgeon(s): Claudia Odonnell Estimated body mass index is 19.66 kg/m? as calculated from the following: Height as of 2/12/20: 160 cm (5' 3). Weight as of [...] Stage 2 moderate COPD by GOLD classification ([facility]) 2017 - Tobacco use - Unspecified hemorrhoids without [...] File Prior to Encounter Medication Sig - xiietz-tyctslun-hdkexxo (CREON 24) 24,000-76,000 -120,000 unit cpDR Take [...] CONTINUOUS Juan E Bucur 30 mL/hr at 12/05/1927 30 mL/hr at 12/05/19726 Allergies: ALLERGIES Allergen [...] December 05, 2019 TIME: 7:47 AM CSN: [id number] Normal [facility] Glucose Meteron 12-05-2019 Glucose [Mass/Vol] 107 mg/dL High 70-99 [facility] Comment on above: Result Comment: SARWAT N OTIFIED Performed By: #### G LMET #### [place] [address] OPERATIVE NOon 12-05-2019 OPERATIVE NO HNO ID: [id number] Author: Claudia Odonnell Service: Gastroenterology Author Type: Physician Type: Operative Report Filed: 12/05/2019 9:08 AM Note Text: OPERATIVE/PROCEDURE REPORT LOG ID: [id number] Surgery/Procedure Date: 12/05/2019 Incision/Procedure Start Time: 8:27 AM Incision Close/Procedure End Time: 8:45 AM Surgeon(s)/Proceduralis t(s) and Scale Expert(s): Surgeon(s) and Role: * Claudia Odonnell - [...] December 05, 2019 TIME: 8:46 AM PAGER/CONTACT #:[phone] [facility] PROGRESSon 12-05-2019 PROGRESS HNO ID: [id number] Author: Juan Everett Service: General Surgery Author Type: Nurse Practitioner Type: Progress Notes Filed: 12/05/2019 7:17 AM Note Text: HANDP completed by Dr. Claudia Odonnell on 11/09/2019. Orders for fluid and IV in Epic. Order for BS check in pre op. Last few BMPs- low glucose. Pt denies history of hypoglycemia. [facility] PT EDon 12-05-2019 PT ED HNO ID: [id number] Author: Ani MunroeRn) SARWAT Ortiz Service: Nursing Author Type: Registered [...] Signed By: Ani Ortiz RN In Department[facility] ED HNO ID: [id number] Author: Gabby MunroeRnBlanca Walker RN Service: Nursing Author Type: Registered Nurse [...] EUS Patient Name: Gracie Banuelos [place] Readiness To Learn Motivation To Learn: Interested Instruction Provided To: Patient and family member Learning Response Patient/Family Response: Verbalizes understanding of: PRE-PROCEDURE INSTRUCTIONS-Correct action to take to follow pre-procedure instructions Method of Instruction: Individual instruction Verbal instruction Follow-Up Plan: Complete - No need for follow-up Electronically signed by: Gabby Walker RN Normal [facility] Surgical Tissue Examon 12-04 Surgical Tissue Exam Test performed at [place] [address] NAME: GRACIE BANUELOS REQUESTING: CLAUDIA ODONNELL FINAL [...] PRINTED: 12/07/2019 Page 1 of 1 Normal [facility] Comment on above: Performed By: #### S URG #### [place] [address] HOSPon 11-10-2019 HOSP Patient:Gracie Banuelos MRN: Height:5' 3(1.6 m) Weight:111 lb (50.349 kg) Outpatient Medications as of 12/05/19: tocobq-pjmdsqkz-jpwueev (CREON 24) 24,000-76,000 -120,000 unit cpDR pantoprazole [...] incontinence, stress female [N39.3] HPV test positive [[id number]] Pulmonary emphysema (HCC) [J43.9] Irritable bowel syndrome [...] following basenames: K,HCT Progress Notes (): Juan Everett APRN.RN FACULTY 12/05/2019 7:17 AM Addendum HANDP completed by [...] EUS Patient Name: [facility]ac[facility] Readiness To Learn Motivation To Learn: Interested [...] Stage 2 moderate COPD by GOLD classification ([facility]) 2018 - Tobacco use - Unspecified hemorrhoids [...] File Prior to Encounter Medication Sig - vaceta-slufusff-aevvivh (CREON 24) 24,000-76,000 -120,000 unit cpDR Take [...] CONTINUOUS Juan E Bucur 30 mL/hr at 12/05/19 0727 30 mL/hr at 12/05/19 07 Allergies: ALLERGIES Allergen Reactions - Ativan [Lorazepam] [...] December 05, 2019 TIME: 7:47 AM CSN: [id number] Progress Notes ([facility]): Claudia Odonnell MD 11/09/2019 3:06 PM Signed HPI:Gracie Banuelos is a 54 year old female who presents for Chronic Pancreatitis. She has h/o- alcohol abuse- quit 10 months ago. She has c/o- pain lower abdomen which is chronic for several years and unrelated to food intake. Also has c/o- diarrhea. She has also difficulty to gain weight. She had CT-scan abdomen from [facility] which shows calcifications in pancreas- suggestive of chronic pancreatitis. No h/o- nausea, vomiting, loss of appetite, hematemesis, bleeding NE, unexplained weight loss, diarrhea, tenesmus, nocturnal diarrhea. [...] 11/09/19 TIME: 2:32 PM Previous Version Normal [facility] Pulmonary Functiono n 06-19-2017 [place] [facility] Function Normal Pending Sale To [facility] ([place]) No Panel Information SARS-CoV-2 & FLU Antigen (Rapid) [facility] Work Phone: Vital Signs Date Time Vital Sign Value Performing Clinician Facility 04-10-2025 13:37-0400 Body mass index (BMI) [Ratio] 20.54 kg/m2 Nicolas Greer REGIONAL LIAISON.NATIONAL ACCOUNT MANAGER Work Phone: [facility] 04-10-2025 13:37-0400 Body weight 56 kg Nicolas Greer [employer]IONAL LIAISON.NATIONAL ACCOUNT MANAGER Work Phone: [facility] 04-10-2025 13:37-0400 Diastolic blood pressure 82 mm[Hg] Nicolas Greer REGIONAL LIAISON.NATIONAL ACCOUNT MANAGER Work Phone: [facility] 04-10-2025 13:37-0400 Heart rate 100 /min Nicolas Greer REGIONAL LIAISON.NATIONAL ACCOUNT MANAGER Work Phone: [facility] 04-10-2025 13:37-0400 Respiratory rate 16 /min Nicolas Greer REGIONAL LIAISON.NATIONAL ACCOUNT MANAGER Work Phone: [facility] 04-10-2025 13:37-0400 SaO2% (BldA) [Mass fraction] 99 % Nicolas Shuklas REGIONAL LIAISON.NATIONAL ACCOUNT MANAGER Work Phone: [facility] 04-10-2025 13:37-0400 Systolic blood pressure 102 mm[Hg] Nicolas Greer REGIONAL LIAISON.NATIONAL ACCOUNT MANAGER Work Phone: [facility] 04-10-2025 07:55-0400 Body height 160.[address] Misbah Elkins MD Work Phone: 8(101)193-408431 [place] [address] 04-10-2025 07:55-0400 Body mass index (BMI) [Ratio] 21.7 kg/m2 Dr. Misbah Elkins MD Work Phone: 8(787)388-426031 [place] [address] 04-10-2025 07:55-0400 Body temperature 97.4 [degF] Dr. Misbah Elkins MD Work Phone: 0(537)156-844631 [place] [address] 04-10-2025 07:55-0400 Body weight 55.[address] Misbah Elkins MD Work Phone: 0(632)470-399331 [place] [address] 04-10-2025 07:55-0400 Diastolic blood pressure 71 mm[Hg] Dr. Misbah Elkins MD Work Phone: 2(079)592-242231 [place] [address] 04-10-2025 07:55-0400 Heart rate 103 /min Dr. Misbah Elkins MD Work Phone: 9(060)583-068031 [place] [address] 04-10-2025 07:55-0400 Inhaled oxygen flow rate 3 L/min Dr. Misbah Elkins MD Work Phone: 4(670)822-132231 [place] [address] 04-10-2025 07:55-0400 Respiratory rate 16 /min Dr. Misbah Elkins MD Work Phone: 1(343)063-800931 [place] [address] 04-10-2025 07:55-0400 SaO2% (BldA) [Mass fraction] 95 % Dr. Misbah Elkins MD Work Phone: 6(988)559-971631 [place] [address] 04-10-2025 07:55-0400 Systolic blood pressure 101 mm[Hg] Dr. Misbah Elkins MD Work Phone: 9(845)443-612731 [place] [address] 03-15-2025 21:00-0400 Diastolic blood pressure 63 mm[Hg] Dr. Misbah Elkins MD Work Phone: 9(524)375-938031 [place] [address] 03-15-2025 21:00-0400 Heart rate 105 /min Dr. Misbah Elkins MD Work Phone: 2(957)621-320431 [place] [address] 03-15-2025 21:00-0400 Inhaled oxygen concentration 90 % Dr. Misbah Elkins MD Work Phone: 5(663)770-652631 [place] [address] 03-15-2025 21:00-0400 Respiratory rate 16 /min Dr. Misbah Elkins MD Work Phone: 9(549)764-006131 [place] [address] 03-15-2025 21:00-0400 SaO2% (BldA) [Mass fraction] 96 % Dr. Misbah Elkins MD Work Phone: 6(521)086-049531 [place] [address] 03-15-2025 21:00-0400 Systolic blood pressure 79 mm[Hg] Dr. Misbah Elkins MD Work Phone: 2(840)383-907231 [place] [address] 03-15-2025 12:00-0400 Body temperature 97.8 [degF] Dr. Misbah Elkins MD Work Phone: 4(454)558-237131 [place] [address] 03-15-2025 01:34-0400 Inhaled oxygen flow rate 60 L/min Dr. Misbah Elkins MD Work Phone: 7(120)823-681731 [place] [address] 03-14-2025 14:24-0400 Body height 160.[address] Misbah Elkins MD Work Phone: 5(151)798-738331 [place] [address] 03-14-2025 14:24-0400 Body weight [address] Misbah Elkins MD Work Phone: 9(107)087-291831 [place] [address] 03-14-2025 00:37-0400 Body mass index (BMI) [Ratio] 25 kg/m2 Dr. Misbah Elkins MD Work Phone: 4(588)405-338531 [place] [address] 03-13-2025 23:24-0400 Body temperature 98.7 [degF] Dr. Misbah Elkins MD Work Phone: 0(411)995-827231 [place] [address] 03-13-2025 23:24-0400 Diastolic blood pressure 61 mm[Hg] Dr. Misbah Elkins MD Work Phone: 9(575)017-378531 [place] [address] 03-13-2025 23:24-0400 Heart rate 106 /min Dr. Misbah Elkins MD Work Phone: 5(824)251-348031 [place] [address] 03-13-2025 23:24-0400 Respiratory rate 17 /min Dr. Misbah Elkins MD Work Phone: [facility] 03-13-2025 23:24-0400 SaO2% (BldA) [Mass fraction] 87 % Dr. Misbah Elkins MD Work Phone: [facility] 03-13-2025 23:24-0400 Systolic blood pressure 119 mm[Hg] Dr. Misbah Elkins MD Work Phone: [facility] 03-13-2025 23:00-0400 Inhaled oxygen flow rate 8 L/min Dr. Misbah Elkins MD Work Phone: 0(889)318-311897 [place] [address] 03-13-2025 11:02-0400 Body height 160.[address] Misbah Elkins MD Work Phone: 6(657)035-799697 [place] [address] 03-13-2025 11:02-0400 Body mass index (BMI) [Ratio] 23.3 kg/m2 Dr. Misbah Elkins MD Work Phone: 2(858)451-675297 [place] [address] 03-13-2025 11:02-0400 Body weight 59.[address] Misbah Elkins MD Work Phone: [facility] 03-10-2025 17:00-0400 Diastolic blood pressure 62 mm[Hg] Jane Farrell MD Work Phone: [facility] 03-10-2025 17:00-0400 Heart rate 88 /min Jane Farrell MD Work Phone: [facility] 03-10-2025 17:00-0400 Respiratory rate 18 /min Jane Farrell MD Work Phone: [facility] 03-10-2025 17:00-0400 SaO2% (BldA) [Mass fraction] 94 % Jane Farrell MD Work Phone: [facility] 03-10-2025 17:00-0400 Systolic blood pressure 94 mm[Hg] Jane Farrell MD Work Phone: [facility] 03-10-2025 15:20-0400 Body temperature 97.5 [degF] Jane Farrell MD Work Phone: [facility] 03-10-2025 12:26-0400 Body height 160 cm Jane Farrell MD Work Phone: [facility] 03-10-2025 12:26-0400 Body mass index (BMI) [Ratio] 23.03 kg/m2 Jane Farrell MD Work Phone: [facility] 03-10-2025 12:26-0400 Body weight 58.97 kg Jane Farrell MD Work Phone: [facility] 02-26-2025 15:48-0400 Body temperature 98.7 [degF] Dr. Misbah Elkins MD Work Phone: 3(825)416-416797 [place] [address] 02-26-2025 15:48-0400 Diastolic blood pressure 78 mm[Hg] Dr. Misbah Elkins MD Work Phone: 6(838)228-060097 [place] [address] 02-26-2025 15:48-0400 Heart rate 67 /min Dr. Misbah Elkins MD Work Phone: 5(313)090-650031 [place] [address] 02-26-2025 15:48-0400 Respiratory rate 12 /min Dr. Misbah Elkins MD Work Phone: 3(072)785-627897 [place] [address] 02-26-2025 15:48-0400 SaO2% (BldA) [Mass fraction] 94 % Dr. Misbah Elkins MD Work Phone: 2(735)841-414697 [place] [address] 02-26-2025 15:48-0400 Systolic blood pressure 145 mm[Hg] Dr. Misbah Elkins MD Work Phone: 8(994)676-134731 [place] [address] 02-26-2025 15:07-0400 Inhaled oxygen flow rate 5 L/min Dr. Misbah Elkins MD Work Phone: 6(138)052-190097 [place] [address] 02-26-2025 13:57-0400 Body height 160.[address] Misbah Elkins MD Work Phone: 9(861)070-062231 [place] [address] 02-26-2025 13:57-0400 Body mass index (BMI) [Ratio] 23.9 kg/m2 Dr. Misbah Elkins MD Work Phone: 7(603)168-264431 [place] [address] 02-26-2025 13:57-0400 Body weight 61.[address] Misbah Elkins MD Work Phone: 2(911)982-245731 [place] [address] 02-08-2025 08:20-0400 Body mass index (BMI) [Ratio] 23.7 kg/m2 Dr. Misbah Elkins MD Work Phone: 1(191)234-021031 [place] [address] 02-08-2025 08:20-0400 Body temperature 97.6 [degF] Dr. Misbah Elkins MD Work Phone: 7(035)685-595031 [place] [address] 02-08-2025 08:20-0400 Body weight 60.[address] Misbah Elkins MD Work Phone: 3(839)066-221531 [place] [address] 02-08-2025 08:20-0400 Diastolic blood pressure 67 mm[Hg] Dr. Misbah Elkins MD Work Phone: 3(330)025-549731 [place] [address] 02-08-2025 08:20-0400 Heart rate 87 /min Dr. Misbah Elkins MD Work Phone: 8(898)663-019831 [place] [address] 02-08-2025 08:20-0400 Inhaled oxygen flow rate 5 L/min Dr. Misbah Elkins MD Work Phone: 7(555)122-002531 [place] [address] 02-08-2025 08:20-0400 Respiratory rate 20 /min Dr. Misbah Elkins MD Work Phone: 5(539)209-274131 [place] [address] 02-08-2025 08:20-0400 SaO2% (BldA) [Mass fraction] 92 % Dr. Misbah Elkins MD Work Phone: 5(643)226-692431 [place] [address] 02-08-2025 08:20-0400 Systolic blood pressure 116 mm[Hg] Dr. Misbah Elkins MD Work Phone: 8(556)635-845831 [place] [address] 01-27-2025 12:55-0400 Diastolic blood pressure 76 mm[Hg] Dr. Misbah Elkins MD Work Phone: 8(786)471-361297 [place] [address] 01-27-2025 12:55-0400 Heart rate 93 /min Dr. Misbah Elkins MD Work Phone: 7(243)008-451331 [place] [address] 01-27-2025 12:55-0400 Respiratory rate 18 /min Dr. Misbah Elkins MD Work Phone: 5(634)638-890631 [place] [address] 01-27-2025 12:55-0400 SaO2% (BldA) [Mass fraction] 97 % Dr. Misbah Elkins MD Work Phone: 4(995)403-321731 [place] [address] 01-27-2025 12:55-0400 Systolic blood pressure 162 mm[Hg] Dr. Misbah Elkins MD Work Phone: 2(273)458-667631 [place] [address] 01-27-2025 12:00-0400 Body temperature 97.8 [degF] Dr. Misbah Elkins MD Work Phone: 2(362)000-153231 [place] [address] 01-27-2025 12:00-0400 Inhaled oxygen flow rate 5 L/min Dr. Misbah Elkins MD Work Phone: 0(494)868-229831 [place] [address] 01-27-2025 10:14-0400 Body height 160.[address] Misbah Elkins MD Work Phone: 8(956)880-015331 [place] [address] 01-27-2025 10:14-0400 Body mass index (BMI) [Ratio] 23.5 kg/m2 Dr. Misbah Elkins MD Work Phone: 5(727)633-286731 [place] [address] 01-27-2025 10:14-0400 Body weight 60.[address] Misbah Elkins MD Work Phone: 2(110)994-005331 [place] [address] 01-13-2025 10:51-0400 Body mass index (BMI) [Ratio] 24.45 kg/m2 Soila Older REGIONAL LIAISON.RN FACULTY Work Phone: 5(117)771-234495 [place] [address] 01-13-2025 10:51-0400 Body weight 62.6 kg Soila Older REGIONAL LIAISON.RN FACULTY Work Phone: 0(819)580-852495 [place] [address] 01-13-2025 10:51-0400 Diastolic blood pressure 60 mm[Hg] Soila Older REGIONAL LIAISON.RN FACULTY Work Phone: [facility] 01-13-2025 10:51-0400 Heart rate 88 /min Soila Older REGIONAL LIAISON.RN FACULTY Work Phone: [facility] 01-13-2025 10:51-0400 Respiratory rate 16 /min Soila Older REGIONAL LIAISON.RN FACULTY Work Phone: [facility] 01-13-2025 10:51-0400 SaO2% (BldA) [Mass fraction] 85 % Soila Older REGIONAL LIAISON.RN FACULTY Work Phone: [facility] 01-13-2025 10:51-0400 Systolic blood pressure 108 mm[Hg] Soila Older REGIONAL LIAISON.RN FACULTY Work Phone: [facility] 01-01-2025 22:15-0400 Body temperature 97.9 [degF] Dr. Misbah Elkins MD Work Phone: [facility] 01-01-2025 22:15-0400 Diastolic blood pressure 70 mm[Hg] Dr. Misbah Elkins MD Work Phone: 8(634)468-306597 [place] [address] 01-01-2025 22:15-0400 Heart rate 108 /min Dr. Misbah Elkins MD Work Phone: [facility] 01-01-2025 22:15-0400 Respiratory rate 24 /min Dr. Misbah Elkins MD Work Phone: [facility] 01-01-2025 22:15-0400 SaO2% (BldA) [Mass fraction] 96 % Dr. Misbah Elkins MD Work Phone: [facility] 01-01-2025 22:15-0400 Systolic blood pressure 104 mm[Hg] Dr. Misbah Elkins MD Work Phone: 1(879)677-591297 [place] [address] 01-01-2025 21:01-0400 Inhaled oxygen flow rate 5 L/min Dr. Misbah Elkins MD Work Phone: 1(201)539-620597 [place] [address] 01-01-2025 20:52-0400 Body mass index (BMI) [Ratio] 24.7 kg/m2 Dr. Misbah Elkins MD Work Phone: 0(836)205-086231 [place] [address] 01-01-2025 20:52-0400 Body weight 63.[address] Misbah Elkins MD Work Phone: 9(638)442-624731 [place] [address] 01-01-2025 20:27-0400 Body height 160.[address] Misbah Elkins MD Work Phone: 1(825)674-901031 [place] [address] 12-24-2024 21:38-0400 Body temperature 97.8 [degF] Dr. Misbah Elkins MD Work Phone: 2(532)172-729831 [place] [address] 12-24-2024 21:38-0400 Diastolic blood pressure 89 mm[Hg] Dr. Misbah Elkins MD Work Phone: 2(601)514-096231 [place] [address] 12-24-2024 21:38-0400 Heart rate 98 /min Dr. Misbah Elkins MD Work Phone: 2(933)863-169231 [place] [address] 12-24-2024 21:38-0400 Respiratory rate 24 /min Dr. Misbah Elkins MD Work Phone: 7(513)439-108531 [place] [address] 12-24-2024 21:38-0400 SaO2% (BldA) [Mass fraction] 98 % Dr. Misbah Elkins MD Work Phone: 8(490)531-058231 [place] [address] 12-24-2024 21:38-0400 Systolic blood pressure 148 mm[Hg] Dr. Misbah Elkins MD Work Phone: 2(305)191-994931 [place] [address] 12-24-2024 20:46-0400 Inhaled oxygen flow rate 5 L/min Dr. Misbah Elkins MD Work Phone: 7(828)406-672531 [place] [address] 12-24-2024 19:39-0400 Body height 160.[address] Misbah Elkins MD Work Phone: 4(382)803-059231 [place] [address] 12-24-2024 19:39-0400 Body mass index (BMI) [Ratio] 24.3 kg/m2 Dr. Misbah Elkins MD Work Phone: 8(809)374-460931 [place] [address] 12-24-2024 19:39-0400 Body weight 62.[address] Misbah Elkins MD Work Phone: 8(854)274-545931 [place] [address] 12-23-2024 08:11-0400 Body mass index (BMI) [Ratio] 24.6 kg/m2 Dr. Misbah Elkins MD Work Phone: 8(467)435-559731 [place] [address] 12-23-2024 08:11-0400 Body temperature 97.4 [degF] Dr. Misbah Elkins MD Work Phone: 9(711)565-055831 [place] [address] 12-23-2024 08:11-0400 Body weight 63.[address] Misbha Elkins MD Work Phone: 1(149)375-975731 [place] [address] 12-23-2024 08:11-0400 Diastolic blood pressure 73 mm[Hg] Dr. Misbah Elkins MD Work Phone: 7(367)973-087531 [place] [address] 12-23-2024 08:11-0400 Heart rate 97 /min Dr. Misbah Elkins MD Work Phone: 5(296)872-645631 [place] [address] 12-23-2024 08:11-0400 Inhaled oxygen flow rate 3 L/min Dr. Misbah Elkins MD Work Phone: 1(335)822-945531 [place] [address] 12-23-2024 08:11-0400 Respiratory rate 22 /min Dr. Misbah Elkins MD Work Phone: 6(153)279-959731 [place] [address] 12-23-2024 08:11-0400 SaO2% (BldA) [Mass fraction] 90 % Dr. Misbah Elkins MD Work Phone: 5(940)045-184031 [place] [address] 12-23-2024 08:11-0400 Systolic blood pressure 153 mm[Hg] Dr. Misbah Elkins MD Work Phone: 6(839)291-610331 [place] [address] 12-19-2024 14:49-0400 Body mass index (BMI) [Ratio] 24.27 kg/m2 Tara Youngblood APRN.RN FACULTY Work Phone: [facility] 12-19-2024 14:49-0400 Body weight 62.14 kg Tara Youngblood APRN.RN FACULTY Work Phone: [facility] 12-19-2024 14:49-0400 Diastolic blood pressure 62 mm[Hg] Tara Youngblood REGIONAL LIAISON.RN FACULTY Work Phone: [facility] 12-19-2024 14:49-0400 Heart rate 103 /min Tara Youngblood REGIONAL LIAISON.RN FACULTY Work Phone: [facility] 12-19-2024 14:49-0400 Respiratory rate 16 /min Tara Youngblood REGIONAL LIAISON.RN FACULTY Work Phone: [facility] 12-19-2024 14:49-0400 SaO2% (BldA) [Mass fraction] 93 % Tara Youngblood REGIONAL LIAISON.RN FACULTY Work Phone: [facility] Comment on above: on 4 liters 12-19-2024 14:49-0400 Systolic blood pressure 118 mm[Hg] Tara Youngblood REGIONAL LIAISON.RN FACULTY Work Phone: [facility] 12-12-2024 15:22-0400 Heart rate 87 /min Dr. Misbah Elkins MD Work Phone: [facility] 12-12-2024 15:22-0400 Respiratory rate 18 /min Dr. Misbah Elkins MD Work Phone: [facility] 12-12-2024 14:00-0400 Inhaled oxygen flow rate 3 L/min Dr. Misbha Elkins MD Work Phone: [facility] 12-12-2024 14:00-0400 SaO2% (BldA) [Mass fraction] 93 % Dr. Misbah Elkins MD Work Phone: [facility] 12-12-2024 13:21-0400 Body temperature 99.1 [degF] Dr. Misbah Elkins MD Work Phone: [facility] 12-12-2024 13:21-0400 Diastolic blood pressure 63 mm[Hg] Dr. Misbah Elkins MD Work Phone: [facility] 12-12-2024 13:21-0400 Systolic blood pressure 129 mm[Hg] Dr. Misbah Elkins MD Work Phone: 9(799)168-420331 [place] [address] 12-12-2024 12:07-0400 Inhaled oxygen concentration 56 % Dr. Misbah Elkins MD Work Phone: 0(091)942-438531 [place] [address] 12-12-2024 05:02-0400 Body mass index (BMI) [Ratio] 23.7 kg/m2 Dr. Misbah Elkins MD Work Phone: 4(103)886-860331 [place] [address] 12-12-2024 05:02-0400 Body weight 60.[address] Misbah Elkins MD Work Phone: 6(027)090-115331 [place] [address] 12-11-2024 13:34-0400 Body height 160.[address] Misbah Elkins MD Work Phone: 0(727)844-092631 [place] [address] 12-08-2024 07:52-0400 Inhaled oxygen flow rate 13 L/min Dr. Misbah Elkins MD Work Phone: 8(440)678-596631 [place] [address] 12-08-2024 07:52-0400 SaO2% (BldA) [Mass fraction] 92 % Dr. Misbah Elkins MD Work Phone: 7(785)727-825131 [place] [address] 12-08-2024 07:16-0400 Heart rate 79 /min Dr. Misbah Elkins MD Work Phone: 5(583)750-657731 [place] [address] 12-08-2024 07:16-0400 Respiratory rate 20 /min Dr. Misbah Elkins MD Work Phone: 8(011)371-726431 [place] [address] 12-08-2024 06:00-0400 Body mass index (BMI) [Ratio] 23.8 kg/m2 Dr. Misbah Elkins MD Work Phone: 4(115)241-894931 [place] [address] 12-08-2024 06:00-0400 Body weight 61.[address] Misbah Elkins MD Work Phone: 7(583)037-834931 [place] [address] 12-08-2024 04:47-0400 Body temperature 97.8 [degF] Dr. Misbah Elkins MD Work Phone: 1(328)287-625831 [place] [address] 12-08-2024 04:47-0400 Diastolic blood pressure 59 mm[Hg] Dr. Misbah Elkins MD Work Phone: 4(432)354-831131 [place] [address] 12-08-2024 04:47-0400 Systolic blood pressure 106 mm[Hg] Dr. Misbah Elkins MD Work Phone: 2(348)555-305631 [place] [address] 12-07-2024 08:56-0400 Inhaled oxygen concentration 56 % Dr. Misbah Elkins MD Work Phone: 0(430)528-607531 [place] [address] 12-06-2024 12:53-0400 Body height 160.[address] Mibsah Elkins MD Work Phone: 1(651)333-415631 [place] [address] 12-04-2024 19:00-0400 Heart rate 101 /min Dr. Misbah Elkins MD Work Phone: 6(721)774-888531 [place] [address] 12-04-2024 19:00-0400 Respiratory rate 23 /min Dr. Misbah Elkins MD Work Phone: 8(268)465-236531 [place] [address] 12-04-2024 19:00-0400 SaO2% (BldA) [Mass fraction] 94 % Dr. Misbah Elkins MD Work Phone: 0(581)281-147131 [place] [address] 12-04-2024 18:06-0400 Body temperature 97.7 [degF] Dr. Misbah Elkins MD Work Phone: 1(646)079-904431 [place] [address] 12-04-2024 18:06-0400 Diastolic blood pressure 93 mm[Hg] Dr. Misbah Elkins MD Work Phone: 6(529)565-681331 [place] [address] 12-04-2024 18:06-0400 Systolic blood pressure 129 mm[Hg] Dr. Misbah Elkins MD Work Phone: 6(723)224-256831 [place] [address] 12-04-2024 18:00-0400 Inhaled oxygen flow rate 5 L/min Dr. Misbah Elkins MD Work Phone: 1(260)554-106031 [place] [address] 12-04-2024 15:51-0400 Body height 160.[address] Misbah Elkins MD Work Phone: 8(976)463-454831 [place] [address] 12-04-2024 15:51-0400 Body mass index (BMI) [Ratio] 23 kg/m2 Dr. Misbah Elkins MD Work Phone: [facility] 12-04-2024 15:51-0400 Body weight 58.[address] Misbah Elkins MD Work Phone: [facility] 12-01-2024 12:20-0500 Heart rate 90 /min Jane Farrell MD Work Phone: [facility] 12-01-2024 12:20-0500 Respiratory rate 16 /min Jane Farrell MD Work Phone: [facility] 12-01-2024 12:20-0500 SaO2% (BldA) [Mass fraction] 89 % Jane Farrell MD Work Phone: [facility] 12-01-2024 12:10-0500 Diastolic blood pressure 66 mm[Hg] Jane Farrell MD Work Phone: [facility] 12-01-2024 12:10-0500 Systolic blood pressure 97 mm[Hg] Jane Farrell MD Work Phone: [facility] 12-01-2024 10:46-0500 Body temperature 97.3 [degF] Jane Farrell MD Work Phone: [facility] 11-07-2024 14:03-0500 Body temperature 97.3 [degF] Misbah Elkins MD Work Phone: [facility] 11-07-2024 14:03-0500 Diastolic blood pressure 53 mm[Hg] Misbah Elkins MD Work Phone: [facility] 11-07-2024 14:03-0500 Heart rate 81 /min Misbah Elkins MD Work Phone: [facility] 11-07-2024 14:03-0500 Respiratory rate 20 /min Misbah Elkins MD Work Phone: [facility] 11-07-2024 14:03-0500 SaO2% (BldA) [Mass fraction] 93 % Misbah Elkins MD Work Phone: [facility] 11-07-2024 14:03-0500 Systolic blood pressure 83 mm[Hg] Misbah Elkins MD Work Phone: [facility] 11-02-2024 13:57-0500 Body height 160 cm Juan Nadeen REGIONAL LIAISON.RN FACULTY Work Phone: [facility] 11-02-2024 13:57-0500 Body mass index (BMI) [Ratio] 24.45 kg/m2 Juan Nadeen REGIONAL LIAISON.RN FACULTY Work Phone: [facility] 11-02-2024 13:57-0500 Body weight 62.6 kg Juan Nadeen REGIONAL LIAISON.RN FACULTY Work Phone: [facility] 11-02-2024 13:57-0500 Diastolic blood pressure 71 mm[Hg] Juan Nadeen REGIONAL LIAISON.RN FACULTY Work Phone: [facility] 11-02-2024 13:57-0500 Heart rate 84 /min Juan Nadeen REGIONAL LIAISON.RN FACULTY Work Phone: [facility] 11-02-2024 13:57-0500 SaO2% (BldA) [Mass fraction] 97 % Juan Nadeen REGIONAL LIAISON.RN FACULTY Work Phone: [facility] Comment on above: 97 2L 11-02-2024 13:57-0500 Systolic blood pressure 140 mm[Hg] Juan Nadeen REGIONAL LIAISON.RN FACULTY Work Phone: [facility] 08-15-2024 11:31-0500 Body mass index (BMI) [Ratio] 25.15 kg/m2 Soila Older REGIONAL LIAISON.RN FACULTY Work Phone: [facility] 08-15-2024 11:31-0500 Body weight 64.41 kg Soila Older REGIONAL LIAISON.RN FACULTY Work Phone: [facility] 08-15-2024 11:31-0500 Diastolic blood pressure 78 mm[Hg] Soila Older REGIONAL LIAISON.RN FACULTY Work Phone: [facility] 08-15-2024 11:31-0500 Heart rate 80 /min Soila Older REGIONAL LIAISON.RN FACULTY Work Phone: [facility] 08-15-2024 11:31-0500 Respiratory rate 16 /min Soila Older REGIONAL LIAISON.RN FACULTY Work Phone: [facility] 08-15-2024 11:31-0500 SaO2% (BldA) [Mass fraction] 93 % Soila Older REGIONAL LIAISON.RN FACULTY Work Phone: [facility] 08-15-2024 11:31-0500 Systolic blood pressure 112 mm[Hg] Soila Older REGIONAL LIAISON.RN FACULTY Work Phone: [facility] 08-10-2024 16:58-0500 Body mass index (BMI) [Ratio] 25.15 kg/m2 Soila Older REGIONAL LIAISON.RN FACULTY Work Phone: [facility] 08-10-2024 16:58-0500 Body weight 64.41 kg Soila Older REGIONAL LIAISON.RN FACULTY Work Phone: [facility] 08-10-2024 16:58-0500 Diastolic blood pressure 80 mm[Hg] Soila Older REGIONAL LIAISON.RN FACULTY Work Phone: [facility] 08-10-2024 16:58-0500 Heart rate 96 /min Soila Older REGIONAL LIAISON.RN FACULTY Work Phone: [facility] 08-10-2024 16:58-0500 Respiratory rate 16 /min Soila Older REGIONAL LIAISON.RN FACULTY Work Phone: [facility] 08-10-2024 16:58-0500 SaO2% (BldA) [Mass fraction] 92 % Soila Older REGIONAL LIAISON.RN FACULTY Work Phone: [facility] 08-10-2024 16:58-0500 Systolic blood pressure 118 mm[Hg] Soila Older REGIONAL LIAISON.RN FACULTY Work Phone: [facility] 08-05-2024 15:36-0500 Body mass index (BMI) [Ratio] 25.38 kg/m2 Misbah Elkins MD Work Phone: [facility] 08-05-2024 15:36-0500 Body weight 65 kg Misbah Elkins MD Work Phone: [facility] 08-05-2024 15:36-0500 Diastolic blood pressure 72 mm[Hg] Misbah Elkins MD Work Phone: [facility] 08-05-2024 15:36-0500 Heart rate 91 /min Misbah Elkins MD Work Phone: [facility] 08-05-2024 15:36-0500 SaO2% (BldA) [Mass fraction] 95 % Misbah Elkins MD Work Phone: [facility] 08-05-2024 15:36-0500 Systolic blood pressure 118 mm[Hg] Misbah Elkins MD Work Phone: [facility] 05-18-2024 16:31-0400 Body mass index (BMI) [Ratio] 23.56 kg/m2 Misbah Elkins MD Work Phone: [facility] 05-18-2024 16:31-0400 Body weight 60.33 kg Misbah Elkins MD Work Phone: [facility] 05-18-2024 16:31-0400 Diastolic blood pressure 72 mm[Hg] Misbah Elkins MD Work Phone: [facility] 05-18-2024 16:31-0400 Heart rate 76 /min Misbah Elkins MD Work Phone: [facility] 05-18-2024 16:31-0400 Respiratory rate 16 /min Misbah Elkins MD Work Phone: [facility] 05-18-2024 16:31-0400 Systolic blood pressure 128 mm[Hg] Misbah Elkins MD Work Phone: [facility] 01-25-2024 14:02-0400 Body mass index (BMI) [Ratio] 24.45 kg/m2 Tara Youngblood APRN.CNP Work Phone: [facility] 01-25-2024 14:02-0400 Body temperature 99.19 [degF] Tara Youngblood [employer]IONAL LIAISON.RN FACULTY Work Phone: [facility] 01-25-2024 14:02-0400 Body weight 62.6 kg Tara Youngblood REGIONAL LIAISON.RN FACULTY Work Phone: [facility] 01-25-2024 14:02-0400 Diastolic blood pressure 70 mm[Hg] Tara Youngblood REGIONAL LIAISON.RN FACULTY Work Phone: [facility] 01-25-2024 14:02-0400 Heart rate 108 /min Tara Youngblood REGIONAL LIAISON.RN FACULTY Work Phone: [facility] 01-25-2024 14:02-0400 SaO2% (BldA) [Mass fraction] 95 % Tara Youngblood REGIONAL LIAISON.RN FACULTY Work Phone: [facility] Comment on above: 3L [place] 01-25-2024 14:02-0400 Systolic blood pressure 170 mm[Hg] Tara Youngblood REGIONAL LIAISON.RN FACULTY Work Phone: [facility] 01-19-2024 23:56-0400 Body temperature 97.9 [degF] Dr. Víctor Huerta Work Phone: [facility] 01-19-2024 23:56-0400 Diastolic blood pressure 81 mm[Hg] Dr. Víctor Huerta Work Phone: [facility] 01-19-2024 23:56-0400 Heart rate 105 /min Dr. Víctor Huerta Work Phone: [facility] 01-19-2024 23:56-0400 Respiratory rate 20 /min Dr. Víctor Huerta Work Phone: [facility] 01-19-2024 23:56-0400 SaO2% (BldA) [Mass fraction] 95 % Dr. Víctor Huerta Work Phone: [facility] 01-19-2024 23:56-0400 Systolic blood pressure 174 mm[Hg] Dr. Víctor Huerta Work Phone: [facility] 01-19-2024 22:07-0400 Body height 160.[address] Víctor Huerta Work Phone: [facility] 01-19-2024 22:07-0400 Body mass index (BMI) [Ratio] 24.5 kg/m2 Dr. Víctor Huerta Work Phone: [facility] 01-19-2024 22:07-0400 Body weight 62.[address] Víctor Huerta Work Phone: [facility] 01-12-2024 11:30-0400 Heart rate 96 /min Anat PulidoBrock REGIONAL LIAISON.RN FACULTY Work Phone: [facility] 01-12-2024 11:08-0400 Body weight 61.69 kg Anat Gutiérrez REGIONAL LIAISON.RN FACULTY Work Phone: [facility] 01-12-2024 11:08-0400 Diastolic blood pressure 68 mm[Hg] Anat PulidoBrock REGIONAL LIAISON.RN FACULTY Work Phone: [facility] 01-12-2024 11:08-0400 Respiratory rate 18 /min Anat Gutiérrez REGIONAL LIAISON.RN FACULTY Work Phone: [facility] 01-12-2024 11:08-0400 SaO2% (BldA) [Mass fraction] 90 % Anat PulidoBrock REGIONAL LIAISON.RN FACULTY Work Phone: [facility] 01-12-2024 11:08-0400 Systolic blood pressure 96 mm[Hg] Anat JohnsonBrock REGIONAL LIAISON.RN FACULTY Work Phone: [facility] 01-05-2024 11:24-0400 Body temperature 97.8 [degF] Dr. Víctor Huerta Work Phone: [facility] 01-05-2024 11:24-0400 Diastolic blood pressure 99 mm[Hg] Dr. Víctor Huerta Work Phone: [facility] 01-05-2024 11:24-0400 Heart rate 98 /min Dr. Víctor uHerta Work Phone: [facility] 01-05-2024 11:24-0400 Inhaled oxygen flow rate 2 L/min Dr. Víctor uHerta Work Phone: [facility] 01-05-2024 11:24-0400 Respiratory rate 18 /min Dr. Víctor Huerta Work Phone: [facility] 01-05-2024 11:24-0400 SaO2% (BldA) [Mass fraction] 92 % Dr. Víctor Huerta Work Phone: [facility] 01-05-2024 11:24-0400 Systolic blood pressure 155 mm[Hg] Dr. Víctor Huerta Work Phone: [facility] 01-05-2024 05:32-0400 Body mass index (BMI) [Ratio] 23.2 kg/m2 Dr. Víctor Huerta Work Phone: [facility] 01-05-2024 05:32-0400 Body weight 59.[address] Víctor Huerta Work Phone: [facility] 01-04-2024 11:11-0400 Body height 160.[address] Víctor Huerta Work Phone: [facility] 01-02-2024 22:48-0400 Body temperature 98.7 [degF] [facility] 01-02-2024 22:48-0400 Diastolic blood pressure 81 mm[Hg] [facility] 01-02-2024 22:48-0400 Heart rate 115 /min [facility] 01-02-2024 22:48-0400 Respiratory rate 21 /min [facility] 01-02-2024 22:48-0400 SaO2% (BldA) [Mass fraction] 93 % [facility] 01-02-2024 22:48-0400 Systolic blood pressure 102 mm[Hg] [facility] 01-02-2024 22:00-0400 Inhaled oxygen flow rate 2 L/min [facility] 01-02-2024 18:57-0400 Body height 160.02 cm [facility] 01-02-2024 18:57-0400 Body mass index (BMI) [Ratio] 23.9 kg/m2 [facility] 01-02-2024 18:57-0400 Body weight 61.23 kg [facility] 12-16-2023 14:13-0400 Body weight 61.05 kg Larry Denbow PA-C Work Phone: [facility] 12-16-2023 14:13-0400 Diastolic blood pressure 74 mm[Hg] Larry Denbow PA-C Work Phone: [facility] 12-16-2023 14:13-0400 Heart rate 130 /min Larry Denbow PA-C Work Phone: [facility] 12-16-2023 14:13-0400 Respiratory rate 18 /min Larry Denbow PA-C Work Phone: [facility] 12-16-2023 14:13-0400 SaO2% (BldA) [Mass fraction] 95 % Larry Denbow PA-C Work Phone: [facility] 12-16-2023 14:13-0400 Systolic blood pressure 124 mm[Hg] Larry Denbow PA-C Work Phone: [facility] 07-08-2023 20:38-0400 Diastolic blood pressure 68 mm[Hg] PROTECTION ENGINEER-C SOILA OLDER Work Phone: [facility] 07-08-2023 20:38-0400 Respiratory rate 20 /min PROTECTION ENGINEER-C SOILA OLDER Work Phone: [facility] 07-08-2023 20:38-0400 SaO2% (BldA) [Mass fraction] 97 % PROTECTION ENGINEER-C SOILA OLDER Work Phone: [facility] 07-08-2023 20:38-0400 Systolic blood pressure 150 mm[Hg] PROTECTION ENGINEER-C SOILA OLDER Work Phone: [facility] 07-08-2023 18:57-0400 Heart rate 103 /min PROTECTION ENGINEER-C SOILA OLDER Work Phone: [facility] 07-08-2023 18:11-0400 Body height 160.02 cm PROTECTION ENGINEER-C SOILA OLDER Work Phone: [facility] 07-08-2023 18:11-0400 Body mass index (BMI) [Ratio] 23.9 kg/m2 PROTECTION ENGINEER-C SOILA OLDER Work Phone: [facility] 07-08-2023 18:11-0400 Body temperature 98.1 [degF] PROTECTION ENGINEER-C SOILA OLDER Work Phone: [facility] 07-08-2023 18:11-0400 Body weight 61.23 kg PROTECTION ENGINEER-C SOILA OLDER Work Phone: [facility] 06-30-2023 07:55-0400 Body mass index (BMI) [Ratio] 23.3 kg/m2 PROTECTION ENGINEER-C SOILA OLDER Work Phone: 7(586)773-834[address] [place] [address] 06-30-2023 07:55-0400 Body temperature 97.4 [degF] PROTECTION ENGINEER-C SOILA OLDER Work Phone: [facility] 06-30-2023 07:55-0400 Body weight 59.87 kg PROTECTION ENGINEER-C SOILA OLDER Work Phone: [facility] 06-30-2023 07:55-0400 Diastolic blood pressure 87 mm[Hg] PROTECTION ENGINEER-C SOILA OLDER Work Phone: [facility] 06-30-2023 07:55-0400 Heart rate 98 /min PROTECTION ENGINEER-C SOILA OLDER Work Phone: [facility] 06-30-2023 07:55-0400 Respiratory rate 20 /min PROTECTION ENGINEER-C SOILA OLDER Work Phone: [facility] 06-30-2023 07:55-0400 SaO2% (BldA) [Mass fraction] 94 % PROTECTION ENGINEER-C SOILA OLDER Work Phone: [facility] 06-30-2023 07:55-0400 Systolic blood pressure 150 mm[Hg] PROTECTION ENGINEER-C SOILA OLDER Work Phone: [facility] 06-02-2023 15:01-0400 Body height 160.02 cm [facility] 06-02-2023 15:01-0400 Body mass index (BMI) [Ratio] 23 kg/m2 [facility] 06-02-2023 15:01-0400 Body temperature 97.2 [degF] [facility] 06-02-2023 15:01-0400 Body weight 58.96 kg [facility] 06-02-2023 15:01-0400 Diastolic blood pressure 99 mm[Hg] [facility] 06-02-2023 15:01-0400 Heart rate 100 /min [facility] 06-02-2023 15:01-0400 Respiratory rate 17 /min [facility] 06-02-2023 15:01-0400 SaO2% (BldA) [Mass fraction] 95 % [facility] 06-02-2023 15:01-0400 Systolic blood pressure 148 mm[Hg] [facility] 04-15-2023 12:39-0400 Body height 160 cm Larry Denbow PA-C Work Phone: [facility] 04-15-2023 12:39-0400 Body temperature 97.2 [degF] Larry Denbow PA-C Work Phone: [facility] 04-15-2023 12:39-0400 Body weight 59.42 kg Larry Denbow PA-C Work Phone: [facility] 04-15-2023 12:39-0400 Diastolic blood pressure 52 mm[Hg] Larry Denbow PA-C Work Phone: [facility] 04-15-2023 12:39-0400 Heart rate 104 /min Larry Denbow PA-C Work Phone: [facility] 04-15-2023 12:39-0400 Respiratory rate 16 /min Larry Denbow PA-C Work Phone: [facility] 04-15-2023 12:39-0400 SaO2% (BldA) [Mass fraction] 94 % Larry Talley PA-C Work Phone: [facility] 04-15-2023 12:39-0400 Systolic blood pressure 104 mm[Hg] Larry Talley PA-C Work Phone: [facility] 11-28-2022 13:00-0500 Body temperature 98.01 [degF] Soila Older REGIONAL LIAISON.RN FACULTY Work Phone: [facility] 11-28-2022 13:00-0500 Body weight 58.51 kg Soila Older REGIONAL LIAISON.RN FACULTY Work Phone: [facility] 11-28-2022 13:00-0500 Diastolic blood pressure 62 mm[Hg] Soila Older REGIONAL LIAISON.RN FACULTY Work Phone: [facility] 11-28-2022 13:00-0500 Heart rate 108 /min Soila Older REGIONAL LIAISON.RN FACULTY Work Phone: [facility] 11-28-2022 13:00-0500 Respiratory rate 16 /min Soila Older REGIONAL LIAISON.RN FACULTY Work Phone: [facility] 11-28-2022 13:00-0500 SaO2% (BldA) [Mass fraction] 96 % Soila Older REGIONAL LIAISON.RN FACULTY Work Phone: [facility] 11-28-2022 13:00-0500 Systolic blood pressure 98 mm[Hg] Soila Older REGIONAL LIAISON.RN FACULTY Work Phone: [facility] 11-26-2022 13:13-0500 Body temperature 98.8 [degF] Mariluz Verduzco PA-C Work Phone: [facility] 11-26-2022 13:13-0500 Body weight 58.7 kg Mariluz Verduzco PA-C Work Phone: [facility] 11-26-2022 13:13-0500 Diastolic blood pressure 63 mm[Hg] Mariluz Teraner PA-C Work Phone: [facility] 11-26-2022 13:13-0500 Heart rate 111 /min Mariluz Teraner PA-C Work Phone: [facility] 11-26-2022 13:13-0500 Respiratory rate 24 /min Mariluz Verduzco PA-C Work Phone: [facility] 11-26-2022 13:13-0500 SaO2% (BldA) [Mass fraction] 96 % Mariluz Verduzco PA-C Work Phone: [facility] 11-26-2022 13:13-0500 Systolic blood pressure 96 mm[Hg] Mariluz Verduzco PA-C Work Phone: [facility] 11-25-2022 09:50-0500 Body height 160 cm Misbah Elkins MD Work Phone: [facility] 11-25-2022 09:50-0500 Body temperature 97.5 [degF] Misbah Elkins MD Work Phone: [facility] 11-25-2022 09:50-0500 Body weight 58.97 kg Misbah Elkins MD Work Phone: [facility] 11-25-2022 09:50-0500 Diastolic blood pressure 60 mm[Hg] Misbah Elkins MD Work Phone: [facility] 11-25-2022 09:50-0500 Heart rate 111 /min Misbah Elkins MD Work Phone: [facility] 11-25-2022 09:50-0500 Respiratory rate 16 /min Misbah Elkins MD Work Phone: [facility] 11-25-2022 09:50-0500 SaO2% (BldA) [Mass fraction] 97 % Misbah Elkins MD Work Phone: [facility] 11-25-2022 09:50-0500 Systolic blood pressure 132 mm[Hg] Misbah Elkins MD Work Phone: [facility] 11-11-2022 15:59-0500 Body height 160 cm Misbah Elkins MD Work Phone: [facility] 11-11-2022 15:59-0500 Body temperature 97.7 [degF] Misbah Elkins MD Work Phone: [facility] 11-11-2022 15:59-0500 Body weight 58.97 kg Misbah Elkins MD Work Phone: [facility] 11-11-2022 15:59-0500 Diastolic blood pressure 56 mm[Hg] Misbah Elkins MD Work Phone: [facility] 11-11-2022 15:59-0500 Heart rate 96 /min Misbah Elkins MD Work Phone: [facility] 11-11-2022 15:59-0500 Respiratory rate 12 /min Misbah Elkins MD Work Phone: [facility] 11-11-2022 15:59-0500 SaO2% (BldA) [Mass fraction] 99 % Misbah Elkins MD Work Phone: [facility] 11-11-2022 15:59-0500 Systolic blood pressure 108 mm[Hg] Misbah Elkins MD Work Phone: [facility] 11-07-2022 13:41-0500 Heart rate 96 /min PROTECTION ENGINEER-C SOILA OLDER Work Phone: [facility] 11-07-2022 13:41-0500 Inhaled oxygen flow rate 2 L/min PROTECTION ENGINEER-C SOILA OLDER Work Phone: [facility] 11-07-2022 13:41-0500 Respiratory rate 20 /min PROTECTION ENGINEER-C SOILA OLDER Work Phone: [facility] 11-07-2022 13:41-0500 SaO2% (BldA) [Mass fraction] 95 % PROTECTION ENGINEER-C SOILA OLDER Work Phone: [facility] 11-07-2022 09:20-0500 Body temperature 98 [degF] PROTECTION ENGINEER-C SOILA OLDER Work Phone: [facility] 11-07-2022 09:20-0500 Diastolic blood pressure 85 mm[Hg] PROTECTION ENGINEER-C SOILA OLDER Work Phone: [facility] 11-07-2022 09:20-0500 Systolic blood pressure 126 mm[Hg] PROTECTION ENGINEER-C SOILA EASTON Work Phone: [facility] 11-07-2022 06:00-0500 Body weight 62.2 kg PROTECTION ENGINEER-C SOILA OLDER Work Phone: [facility] 11-05-2022 10:20-0500 Body height 160.02 cm PROTECTION ENGINEER-C SOILA OLDER Work Phone: [facility] 11-05-2022 07:21-0500 Inhaled oxygen concentration 30 % PROTECTION ENGINEER-C SOILA OLDER Work Phone: [facility] 11-03-2022 08:46-0500 Body height 160 cm Misbah Elkins MD Work Phone: [facility] 11-03-2022 08:46-0500 Body temperature 98.1 [degF] Misbah Elkins MD Work Phone: [facility] 11-03-2022 08:46-0500 Body weight 59.88 kg Misbah Elkins MD Work Phone: [facility] 11-03-2022 08:46-0500 Diastolic blood pressure 60 mm[Hg] Misbah Elkins MD Work Phone: [facility] 11-03-2022 08:46-0500 Heart rate 101 /min Misbah Elkins MD Work Phone: [facility] 11-03-2022 08:46-0500 Respiratory rate 20 /min Misbah Elkins MD Work Phone: [facility] 11-03-2022 08:46-0500 SaO2% (BldA) [Mass fraction] 94 % Misbah Elkins MD Work Phone: [facility] 11-03-2022 08:46-0500 Systolic blood pressure 140 mm[Hg] Misbah Elkins MD Work Phone: [facility] 11-01-2022 23:22-0500 Body mass index (BMI) [Ratio] 23.7 kg/m2 PROTECTION ENGINEER-C SOILA EASTON Work Phone: [facility] 10-29-2022 07:12-0500 Body temperature 97.7 [degF] Text Entry [facility] 10-29-2022 07:12-0500 Diastolic blood pressure 63 mm[Hg] Text Entry [facility] 10-29-2022 07:12-0500 Heart rate 69 /min Text Entry [facility] 10-29-2022 07:12-0500 Respiratory rate 18 /min Text Entry [facility] 10-29-2022 07:12-0500 SaO2% (BldA) [Mass fraction] 97 % Text Entry [facility] 10-29-2022 07:12-0500 Systolic blood pressure 100 mm[Hg] Text Entry [facility] 10-20-2022 07:01-0500 Body temperature 9 [degF] PROTECTION ENGINEER-C SOILA OLDER Work Phone: [facility] 10-20-2022 07:01-0500 Diastolic blood pressure 74 mm[Hg] PROTECTION ENGINEER-C SOILA OLDER Work Phone: [facility] 10-20-2022 07:01-0500 Heart rate 99 /min PROTECTION ENGINEER-C SOILA OLDER Work Phone: [facility] 10-20-2022 07:01-0500 Respiratory rate 15 /min PROTECTION ENGINEER-C SOILA OLDER Work Phone: [facility] 10-20-2022 07:01-0500 SaO2% (BldA) [Mass fraction] 94 % PROTECTION ENGINEER-C SOILA OLDER Work Phone: [facility] 10-20-2022 07:01-0500 Systolic blood pressure 167 mm[Hg] PROTECTION ENGINEER-C SOILA OLDER Work Phone: [facility] 10-19-2022 18:57-0500 Body height 160.02 cm PROTECTION ENGINEER-C SOILA OLDER Work Phone: [facility] 10-19-2022 18:57-0500 Body mass index (BMI) [Ratio] 23.6 kg/m2 PROTECTION ENGINEER-C SOILA OLDER Work Phone: 6(508)250-963697 [place] [address] 10-19-2022 18:57-0500 Body weight 60.32 kg PROTECTION ENGINEER-C SOILA OLDER Work Phone: [facility] 09-05-2022 13:43-0500 Body mass index (BMI) [Ratio] 23.4 kg/m2 PROTECTION ENGINEER-C SOILA OLDER Work Phone: [facility] 09-05-2022 13:43-0500 Body temperature 98.4 [degF] PROTECTION ENGINEER-C SOILA OLDER Work Phone: [facility] 09-05-2022 13:43-0500 Body weight 60.04 kg PROTECTION ENGINEER-C SOILA OLDER Work Phone: 9(311)536-055097 [place] [address] 09-05-2022 13:43-0500 Diastolic blood pressure 74 mm[Hg] PROTECTION ENGINEER-C SOILA OLDER Work Phone: 1(930)422-221797 [place] [address] 09-05-2022 13:43-0500 Heart rate 93 /min PROTECTION ENGINEER-C SOILA OLDER Work Phone: [facility] 09-05-2022 13:43-0500 Inhaled oxygen flow rate 2 L/min PROTECTION ENGINEER-C SOILA OLDER Work Phone: [facility] 09-05-2022 13:43-0500 Respiratory rate 18 /min PROTECTION ENGINEER-C SOILA OLDER Work Phone: [facility] 09-05-2022 13:43-0500 SaO2% (BldA) [Mass fraction] 96 % PROTECTION ENGINEER-C SOILA OLDER Work Phone: [facility] 09-05-2022 13:43-0500 Systolic blood pressure 104 mm[Hg] PROTECTION ENGINEER-C SOILA OLDER Work Phone: [facility] 08-27-2022 12:49-0500 Body temperature 98.29 [degF] Soila Older REGIONAL LIAISON.RN FACULTY Work Phone: [facility] 08-27-2022 12:49-0500 Body weight 59.88 kg Soila Older REGIONAL LIAISON.RN FACULTY Work Phone: [facility] 08-27-2022 12:49-0500 Diastolic blood pressure 80 mm[Hg] Soila Older REGIONAL LIAISON.RN FACULTY Work Phone: [facility] 08-27-2022 12:49-0500 Heart rate 80 /min Soila Older REGIONAL LIAISON.RN FACULTY Work Phone: [facility] 08-27-2022 12:49-0500 Respiratory rate 16 /min Soila Older REGIONAL LIAISON.RN FACULTY Work Phone: [facility] 08-27-2022 12:49-0500 SaO2% (BldA) [Mass fraction] 82 % Soila Older REGIONAL LIAISON.RN FACULTY Work Phone: [facility] 08-27-2022 12:49-0500 Systolic blood pressure 132 mm[Hg] Soila Older REGIONAL LIAISON.RN FACULTY Work Phone: [facility] 08-22-2022 19:41-0500 Diastolic blood pressure 91 mm[Hg] PROTECTION ENGINEER-C SOILA OLDER Work Phone: [facility] 08-22-2022 19:41-0500 Heart rate 100 /min PROTECTION ENGINEER-C SOILA OLDER Work Phone: [facility] 08-22-2022 19:41-0500 Respiratory rate 24 /min PROTECTION ENGINEER-C SOILA OLDER Work Phone: [facility] 08-22-2022 19:41-0500 SaO2% (BldA) [Mass fraction] 93 % PROTECTION ENGINEER-C SOILA OLDER Work Phone: [facility] 08-22-2022 19:41-0500 Systolic blood pressure 146 mm[Hg] PROTECTION ENGINEER-C SOILA OLDER Work Phone: [facility] 08-22-2022 18:11-0500 Body temperature 97.8 [degF] PROTECTION ENGINEER-C SOILA OLDER Work Phone: [facility] 08-22-2022 18:11-0500 Inhaled oxygen flow rate 2 L/min PROTECTION ENGINEER-C SOILA OLDER Work Phone: [facility] 08-22-2022 16:06-0500 Body mass index (BMI) [Ratio] 23.5 kg/m2 PROTECTION ENGINEER-C SOILA OLDER Work Phone: [facility] 08-22-2022 16:06-0500 Body weight 60.2 kg PROTECTION ENGINEER-C SOILA OLDER Work Phone: [facility] 07-18-2022 09:56-0400 Body weight 60.33 kg Soila Older REGIONAL LIAISON.RN FACULTY Work Phone: [facility] 07-18-2022 09:56-0400 Diastolic blood pressure 72 mm[Hg] Soila Older REGIONAL LIAISON.RN FACULTY Work Phone: [facility] 07-18-2022 09:56-0400 Heart rate 72 /min Soila Older REGIONAL LIAISON.RN FACULTY Work Phone: [facility] 07-18-2022 09:56-0400 Respiratory rate 16 /min Soila Older REGIONAL LIAISON.RN FACULTY Work Phone: [facility] 07-18-2022 09:56-0400 Systolic blood pressure 128 mm[Hg] Soila Older REGIONAL LIAISON.RN FACULTY Work Phone: [facility] 05-27-2022 09:13-0400 Body height 160 cm Claudia Odonnell MD Work Phone: [facility] 05-27-2022 09:13-0400 Body weight 59.06 kg Claudia Odonnell MD Work Phone: [facility] 05-27-2022 09:13-0400 Diastolic blood pressure 72 mm[Hg] Claudia Odonnell MD Work Phone: [facility] 05-27-2022 09:13-0400 Heart rate 81 /min Claudia Odonnell MD Work Phone: [facility] 05-27-2022 09:13-0400 Systolic blood pressure 116 mm[Hg] Claudia Odonnell MD Work Phone: [facility] 04-17-2022 08:57-0400 Body weight 58.51 kg Soila Older REGIONAL LIAISON.RN FACULTY Work Phone: [facility] 04-17-2022 08:57-0400 Diastolic blood pressure 72 mm[Hg] Soila Older REGIONAL LIAISON.RN FACULTY Work Phone: [facility] 04-17-2022 08:57-0400 Heart rate 92 /min Soila Older REGIONAL LIAISON.RN FACULTY Work Phone: [facility] 04-17-2022 08:57-0400 Respiratory rate 16 /min Soila Older REGIONAL LIAISON.RN FACULTY Work Phone: [facility] 04-17-2022 08:57-0400 Systolic blood pressure 128 mm[Hg] Soila Older REGIONAL LIAISON.RN FACULTY Work Phone: [facility] 03-03-2022 14:20-0400 Inhaled oxygen flow rate 2 L/min [facility] Work Phone: 03-03-2022 14:20-0400 SaO2% (BldA) [Mass fraction] 94 % PROTECTION ENGINEER-C Theron Teague PROTECTION ENGINEER Work Phone: [facility] Work Phone: 03-03-2022 14:16-0400 Diastolic blood pressure 84 mm[Hg] PROTECTION ENGINEER-C Theron Teague PROTECTION ENGINEER Work Phone: [facility] Work Phone: 03-03-2022 14:16-0400 Heart rate 91 /min PROTECTION ENGINEER-C Theron Teague PROTECTION ENGINEER Work Phone: [facility] Work Phone: 03-03-2022 14:16-0400 Respiratory rate 16 /min PROTECTION ENGINEER-C Theron Teague PROTECTION ENGINEER Work Phone: [facility] Work Phone: 03-03-2022 14:16-0400 Systolic blood pressure 108 mm[Hg] PROTECTION ENGINEER-C Theron Teague PROTECTION ENGINEER Work Phone: [facility] Work Phone: 03-03-2022 11:36-0400 Body height 160.02 cm PROTECTION ENGINEER-C Theron Teague PROTECTION ENGINEER Work Phone: [facility] Work Phone: 03-03-2022 11:36-0400 Body mass index (BMI) [Ratio] 23.9 kg/m2 PROTECTION ENGINEER-Nichole Teague PROTECTION ENGINEER Work Phone: [facility] Work Phone: 03-03-2022 11:36-0400 Body temperature 97.8 [degF] PROTECTION ENGINEER-C Theron Teague PROTECTION ENGINEER Work Phone: [facility] Work Phone: 03-03-2022 11:36-0400 Body weight 61.23 kg PROTECTION ENGINEER-C Theron Teague PROTECTION ENGINEER Work Phone: [facility] Work Phone: 01-16-2022 09:30-0400 Body mass index (BMI) [Ratio] 22.8 kg/m2 PROTECTION ENGINEER-Nichole Teague PROTECTION ENGINEER Work Phone: [facility] Work Phone: 01-16-2022 09:30-0400 Body temperature 98.9 [degF] PROTECTION ENGINEER-C Theron Teague PROTECTION ENGINEER Work Phone: [facility] Work Phone: 01-16-2022 09:30-0400 Body weight 58.51 kg PROTECTION ENGINEER-Nichole Teague PROTECTION ENGINEER Work Phone: [facility] Work Phone: 01-16-2022 09:30-0400 Diastolic blood pressure 82 mm[Hg] PROTECTION ENGINEER-Nichole Teague PROTECTION ENGINEER Work Phone: [facility] Work Phone: 01-16-2022 09:30-0400 Heart rate 108 /min PROTECTION ENGINEER-Nichole Teague PROTECTION ENGINEER Work Phone: [facility] Work Phone: 01-16-2022 09:30-0400 Respiratory rate 19 /min PROTECTION ENGINEER-Nichole Teague PROTECTION ENGINEER Work Phone: [facility] Work Phone: 01-16-2022 09:30-0400 SaO2% (BldA) [Mass fraction] 96 % PROTECTION ENGINEER-Nichole Teague PROTECTION ENGINEER Work Phone: [facility] Work Phone: 01-16-2022 09:30-0400 Systolic blood pressure 104 mm[Hg] PROTECTION ENGINEER-C Theron Teague PROTECTION ENGINEER Work Phone: [facility] Work Phone: Encounters Encounter Date Encounter Type Care Provider Facility Start: 04-11-2025 End: 04-11-2025 Telephone encounter Misbah Elkins MD Work Phone: NOC Comment on above: Transition Of Care Start: 04-10-2025 End: 04-10-2025 Telephone encounter Misbah Elkins MD Work Phone: NOC Comment on above: Transition Of Care Start: 04-10-2025 End: 04-10-2025 Office outpatient visit 25 minutes Nicolas Greer APRN.NATIONAL ACCOUNT MANAGER Work Phone: [facility] [place] Comment on above: Hospital discharge f ollow-up (Primary Dx); Acute respiratory failure with hypoxia (HCC); Chronic recurrent pancreatitis (HCC); Norovirus; Pneumonia of both lungs due to infectious organism, unspecified part of lung; Presence of pancreatic duct stent; Alcoholic hepatitis without ascites (HCC); Alcohol use disorder, moderate, dependence (HCC) Start: 04-10-2025 End: 04-10-2025 ambulatory MISBAH ELKINS Facility:[facility] Start: 04-10-2025 End: 04-10-2025 Ani Eduardo PROTECTION ENGINEER-C -[facility] Work Phone: Start: 04-10-2025 End: 04-10-[address] Misbah Elkins MD Work Phone: -[facility] Start: 04-07-2025 End: 04-07-2025 Telephone encounter Floresita Villaseñor APRN.RN FACULTY Work Phone: Gastroenterology Comment on above: Opened In Error Start: 04-04-2025 End: 04-07-2025 Telephone encounter Misbah Elkins MD Work Phone: NOC Comment on above: Transition Of Care Chronic recurrent pa ncreatitis (HCC) (Primary Dx) Transition Of Care ( Left V/m ) Appointment Start: 03-29-2025 End: 03-29-2025 Telephone encounter Juan Senior APRN.RN FACULTY Work Phone: [facility] Comment on above: Patient Question Start: 03-28-2025 End: 03-28-2025 Telephone encounter Herman Nevarez RN NOC Comment on above: Transition Of Care ( RC f/u discharge LVM /) Start: 03-21-2025 End: 03-22-2025 Refill Misbah Elkins MD Work Phone: [facility] [place] Comment on above: Refill Request Start: 03-20-2025 End: 03-20-2025 Evaluation and management of inpatient NGUYEN PALACIOS Facility:[id number] Start: 03-16-2025 End: 03-16-2025 Telephone encounter Misbah Elkins MD Work Phone: [facility] [place] Comment on above: Patient Update Start: 03-16-2025 Dr. Sudhir Izquierdo MD -[facility] Work Phone: Start: 03-15-2025 End: 03-23-2025 Evaluation and management of inpatient SANTA GUERRERO Facility:[id number] Start: 03-15-2025 Dr. Sudhir Izquierdo MD -[facility] Work Phone: Start: 03-15-2025 End: 03-16-2025 ambulatory Maksim Anderson APRN.RN FACULTY Work Phone: Critical Care Start: 03-15-2025 Dr. Gonzalo Sebastian DO -[facility] -PM Start: 03-14-2025 Dr. Sudhir Izquierdo MD -[facility] Work Phone: Start: 03-13-2025 End: 03-15-2025 Evaluation and management of inpatient Dr. Misbah Elkins MD Work Phone: [facility] Work Phone: Start: 03-13-2025 ambulatory Pako Fernández Facility:[facility] Start: 03-13-2025 End: 03-15-2025 Dr. Pako Fernández MD -[facility] Work Phone: Start: 03-13-2025 End: 03-13-2025 Telephone encounter Jane Farrell MD Work Phone: Gastroenterology Comment on above: Patient Update (Symp toms after ERCP ) Start: 03-10-2025 ambulatory MISBAH ELKINS Facility:[facility] Start: 03-10-2025 End: 03-10-2025 Subsequent hospital visit by physician Jane Farrell MD Work Phone: Gastroenterology Comment on above: Other chronic pancre atitis (HCC) [K86.1] Start: 03-07-2025 End: 03-07-2025 Telephone encounter Juan Senior APRN.RN FACULTY Work Phone: Gastroenterology Comment on above: Orders Start: 03-06-2025 End: 03-06-2025 Telephone encounter Raisa Jimenez physician ophthalmologist Comment on above: Patient Question Patient Question (Qu estions Prior to ERCP) Start: 03-03-2025 End: 03-03-2025 ambulatory Jaelyn Kothari RN Gastroenterology Start: 02-26-2025 End: 02-26-2025 Emergency department patient visit Dr. Misbah Elkins MD Work Phone: [facility] Work Phone: Start: 02-26-2025 End: 02-26-2025 Dr. Misbah Elkins MD Work Phone: -Emergency Department Work Phone: Start: 02-10-2025 End: 02-13-2025 Telephone encounter Juan Senior APRN.RN FACULTY Work Phone: Gastroenterology Comment on above: Medical Clearance Start: 02-08-2025 End: 02-08-2025 Ani ROGERSC -[facility] Work Phone: Start: 02-08-2025 End: 02-08-[address] Misbah Elkins MD Work Phone: [facility] Work Phone: Start: 02-03-2025 End: 03-06-2025 Refill Juan Senior APRN.CNP Work Phone: Gastroenterology Comment on above: Refill Request Start: 01-27-2025 End: 01-27-2025 [facility]: Start: 01-27-2025 End: 01-27-2025 Emergency department patient visit Franco Inman Facility:[facility] Start: 01-24-2025 End: 01-24-2025 Refill Misbah Elkins MD Work Phone: [facility] [place] Comment on above: Refill Request Start: 01-18-2025 [facility] Facility:[facility] Start: 01-13-2025 End: 01-13-2025 Patient encounter procedure Soila Easton APRN.RN FACULTY Work Phone: [facility] [place] Comment on above: Gout, unspecified ca use, unspecified chronicity, unspecified site (Primary Dx); Calculus of pancreatic duct (HCC); Chronic recurrent pancreatitis (HCC); Chronic obstructive pulmonary disease, unspecified COPD type (HCC); Pulmonary emphysema, unspecified emphysema type (HCC); Tobacco use disorder Start: 01-13-2025 End: 01-13-2025 [facility] Facility:[facility] Start: 01-09-2025 End: 01-12-2025 Telephone encounter Raisa Jimenez RNphysician ophthalmologist Comment on above: Patient Update (Pain ) Order for Pull Ups Start: 01-06-2025 End: 01-09-2025 Telephone encounter Juan Senior APRN.RN FACULTY Work Phone: [facility] Comment on above: Patient Question Start: 01-05-2025 End: 01-11-2025 Telephone encounter Juan Senior APRN.CNP Work Phone: Gastroenterology Comment on above: Patient Request Start: 01-03-2025 End: 01-03-2025 Refhollie Elkins MD Work Phone: [facility] Comment on above: Refill Request Start: 01-01-2025 End: 01-01-2025 Dr. Misbah Elkins MD Work Phone: -Emergency Department Work Phone: Start: 01-01-2025 End: 01-01-2025 Emergency department patient visit Dr. Misbah Elkins MD Work Phone: [facility] Work Phone: Start: 12-31-2024 End: 01-18-2025 ambulatory Marge Handy RN Work Phone: NURSE ASSISTANT [employer] Comment on above: Medication Question Refill Request Start: 12-27-2024 End: 12-28-2024 Telephone encounter Juan Senior APRN.RN FACULTY Work Phone: [facility] Comment on above: Patient Update Start: 12-24-2024 End: 12-24-2024 Dr. Misbah Elkins MD Work Phone: -Emergency Department Work Phone: Start: 12-24-2024 End: 12-24-2024 Emergency department patient visit Dr. Misbah Elkins MD Work Phone: [facility] Work Phone: Start: 12-23-2024 End: 12-23-2024 Telephone encounter Raisa Jimenez RNphysician ophthalmologist Comment on above: Reminder Call (Misse d call) Start: 12-23-2024 End: 12-23-2024 Ani Eduardo PROTECTION ENGINEER-C -[facility] Work Phone: Start: 12-23-2024 End: 12-23-2024 ambulatory Ani Eduardo PROTECTION ENGINEER [place] Start: 12-21-2024 End: 02-20-2025 Follow-up encounter Tara Youngblood APRN.RN FACULTY Work Phone: [facility] Start: 12-20-2024 End: 12-20-2024 ambulatory Carroll Leblanc physician ophthalmologist Start: 12-19-2024 End: 12-19-2024 Subsequent hospital visit by physician Xr [facility] [place] Work Phone: Radiology Comment on above: Chronic recurrent pa ncreatitis (HCC) [K86.1] Start: 12-19-2024 End: 12-19-2024 ambulatory [facility] Facility:[facility] Start: 12-19-2024 End: 12-19-2024 Patient encounter procedure Tara Kristin Youngblood APRN.CNP Work Phone: [facility] [place] Comment on above: Hospital discharge f ollow-up (Primary Dx); Chronic recurrent pancreatitis (HCC); Chronic obstructive pulmonary disease, unspecified COPD type (HCC); Dysphagia, unspecified type; Essential hypertension, benign; Tobacco use disorder; Smoker Start: 12-19-2024 End: 12-22-2024 Telephone encounter Misbah Elkins MD Work Phone: [facility] [place] Comment on above: Results Start: 12-16-2024 End: 12-16-2024 Gabby SILVA [facility] Work Phone: Start: 12-16-2024 End: 12-16-2024 ambulatory [facility] [place] Start: 12-12-2024 Non-patient / Non-visit Dr. Emily [facility] Work Phone: Start: 12-12-2024 Dr. Anastacia [facility] Work Phone: Start: 12-12-2024 Non-patient / Non-visit Marshal Kay nd [facility] Start: 12-12-[address] [facility] Start: 12-11-2024 Non-patient / Non-visit Dr. Emily [facility] Work Phone: Start: 12-11-2024 Dr. Anastacia [facility] Work Phone: Start: 12-10-2024 Non-patient / Non-visit Dr. Emily [facility] Work Phone: Start: 12-10-2024 Dr. Anastacia camargo [facility] Work Phone: Start: 12-09-2024 Non-patient / Non-visit Dr. Emily Bonilla [facility] Work Phone: Start: 12-09-2024 Dr. Anastacia camargo [facility] Work Phone: Start: 12-09-2024 Non-patient / Non-visit Dr. Gonzalo oLpez own DO -[facility] Start: 12-09-2024 Dr. Gonzalo Sebastian DO -[facility] Start: 12-08-2024 Non-patient / Non-visit Dr. Cherelle Kahn [facility] Work Phone: Start: 12-08-2024 Dr. Yrn vilchis [facility] Work Phone: Start: 12-08-2024 Non-patient / Non-visit Dr. Gonzalo Lopez own DO -[facility] Start: 12-08-2024 Dr. Gonzalo Sebastian DO -[facility] Start: 12-07-2024 Non-patient / Non-visit Dr. Cherelle Kahn [facility] Work Phone: Start: 12-07-2024 Dr. Yrn vilchis [facility] Work Phone: Start: 12-07-2024 Non-patient / Non-visit Dr. Gonzalo Lopez own DO -[facility] Start: 12-07-2024 Dr. Gonzalo Sebastian DO -[facility] Start: 12-06-2024 Non-patient / Non-visit Dr. Cherelle Kahn [facility] Work Phone: Start: 12-06-2024 Dr. Yrn vilchis [facility] Work Phone: Start: 12-06-2024 Non-patient / Non-visit Dr. Gonzalo Lopez own DO -[facility] Start: 12-06-2024 Dr. [facility] -[facility] Start: 12-05-2024 Non-patient / Non-visit Dr. Cherelle Kahn [facility] Inpatient Physicians Work Phone: Start: 12-05-2024 Dr. Yrn vilchis [facility] Inpatient Physicians Work Phone: Start: 12-05-2024 ambulatory [facility] Facility:[facility] [place] Start: 12-05-2024 End: 12-05-2024 Telephone encounter Juan Senior APRN.CNP Work Phone: Gastroenterology Start: 12-05-2024 Non-patient / Non-visit Dr. Emily Gaxiola MD -[facility] Start: 12-05-2024 Dr. Bridgette Gaxiola MD -[facility] Start: 12-04-2024 Non-patient / Non-visit Dr. Aleta Aguayo [facility] Inpatient Physicians Work Phone: Start: 12-04-2024 ambulatory Aleta Aguayo Facility:[facility] Start: 12-04-2024 End: 12-12-2024 Evaluation and management of inpatient Dr. Aleta Aguayo DO -[facility] Work Phone: Start: 12-04-2024 End: 12-12-2024 Dr. Anastacia Bonilla MD -Progressive Care Unit Work Phone: Start: 12-01-2024 End: 12-01-2024 Telephone encounter Jane Farrell MD Work Phone: Gastroenterology Comment on above: Endoscopy Call Start: 12-01-2024 End: 12-01-2024 ambulatory [facility] Facility:[facility] Start: 12-01-2024 End: 12-01-2024 Subsequent hospital visit by physician Jane Farrell MD Work Phone: Gastroenterology Comment on above: Chronic recurrent pa ncreatitis (HCC) [K86.1] Start: 11-29-2024 End: 12-02-2024 ambulatory Misbah Elkins MD Work Phone: Internal Medicine [facility] Start: 11-25-2024 End: 11-25-2024 Telephone encounter Raisa Jimenez physician ophthalmologist Comment on above: Medication Problem ( Medication for EGD) Start: 11-24-2024 End: 11-24-2024 Patient encounter procedure Ani Eduardo PROTECTION ENGINEER-C -Pulmonary Services/Neurology Work Phone: Start: 11-24-2024 End: 11-24-2024 Ani Eduardo PROTECTION ENGINEER-C -Pulmonary Services/Neurology Work Phone: Start: 11-24-2024 End: 11-24-2024 ambulatory Carroll Leblanc physician ophthalmologist Start: 11-24-2024 End: 11-24-2024 ambulatory Ani Eduardo PROTECTION ENGINEER Facility:[facility] Start: 11-21-2024 End: 11-21-2024 Refill Misbah Elkins MD Work Phone: Internal Medicine [place] Comment on above: Refill Request Start: 11-08-2024 End: 11-09-2024 Follow-up encounter Misbah Elkins MD Work Phone: Internal Medicine [place] Start: 11-08-2024 End: 11-09-2024 Telephone encounter Misbah Elkins MD Work Phone: Internal Medicine [place] Comment on above: Medication Problem Start: 11-07-2024 End: 11-07-2024 Subsequent hospital visit by physician [facility] Work Phone: Radiology Comment on above: COPD with exacerbati on (HCC) [J44.1] Start: 11-07-2024 End: 11-07-2024 ambulatory MISBAH ELKINS Facility:[facility] Start: 11-07-2024 End: 11-07-2024 Office outpatient visit 25 minutes Misbah Elkins MD Work Phone: Internal Medicine [place] Comment on above: Cough with sputum (P rimary Dx); Essential hypertension; COPD with exacerbation (HCC) Start: 11-02-2024 End: 11-02-2024 Office outpatient new 30 minutes Juan Senior APRN.CNP Work Phone: Gastroenterology Comment on above: 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); Chronic recurrent pancreatitis (HCC); Chronic RUQ pain; Abdominal bloating; Nausea; Gastroesophageal reflux disease without esophagitis Start: 11-02-2024 End: 11-02-2024 [facility] Facility:[facility] Start: 10-28-2024 End: 10-28-2024 Refill Misbah Elkins MD Work Phone: Internal Medicine [place] Comment on above: Refill Request Start: 08-23-2024 End: 08-23-2024 [facility] Facility:[facility] Start: 08-23-2024 End: 08-23-2024 Subsequent hospital visit by physician [facility] (I-Stat) Work Phone: Cat Scan Comment on above: Alcoholic hepatitis without ascites [K70.10] Start: 08-19-2024 End: 08-19-2024 Telephone encounter Misbah Elkins MD Work Phone: Internal Medicine [place] Comment on above: medication issue Start: 08-16-2024 End: 08-17-2024 Refill Misbah Elkins MD Work Phone: Family Medicine [place] Comment on above: Refill Request Start: 08-15-2024 End: 08-15-2024 [facility] Facility:[facility] Start: 08-15-2024 End: 08-15-2024 Patient encounter procedure Soila Easton APRN.CNP Work Phone: Internal Medicine [place] Comment on above: Chronic obstructive pulmonary disease, unspecified COPD type (HCC) (Primary Dx); Generalized abdominal tenderness without rebound tenderness; Upper abdominal pain; Elevated lipase; Nausea; Alcoholic hepatitis without ascites; Alcohol use disorder, moderate, dependence (HCC); Acute pancreatitis, unspecified complication status, unspecified pancreatitis type Start: 08-12-2024 End: 08-12-2024 [facility] Facility:[facility] Start: 08-11-2024 End: 08-11-2024 Telephone encounter Misbah Elkins MD Work Phone: Internal Medicine [place] Comment on above: Results Start: 08-10-2024 End: 08-10-2024 Subsequent hospital visit by physician Aki [facility] [place] Work Phone: Radiology Comment on above: Shortness of breath [R06.02] Start: 08-10-2024 End: 08-10-2024 Patient encounter procedure Soila Easton APRN.CNP Work Phone: Internal Medicine [place] Comment on above: Shortness of breath (Primary Dx); Chronic obstructive pulmonary disease with acute exacerbation (HCC); Upper abdominal pain; Nausea; Urinary incontinence, unspecified type; Urinary frequency; Elevated glucose; Tobacco use disorder; Pulmonary emphysema, unspecified emphysema type (HCC) Start: 08-10-2024 End: 08-10-2024 [facility] Facility:[facility] Start: 08-10-2024 End: 08-10-2024 Telephone encounter Misbah Elkins MD Work Phone: Internal Medicine [place] Comment on above: Results; Urinary Pro blem Start: 08-05-2024 End: 08-05-2024 [facility] Facility:[facility] Start: 08-05-2024 End: 08-05-2024 Office outpatient visit 25 minutes Misbah Elkins MD Work Phone: Internal Medicine [place] Comment on above: Anxiety (Primary Dx) ; 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 chronic pancreatitis (HCC); Nausea; Encounter for immunization; Insomnia, unspecified type; Leukocytosis, unspecified type Start: 08-05-2024 End: 08-05-2024 [facility] Facility:[facility] Start: 07-08-2024 End: 07-08-2024 Refill Misbah Elkins MD Work Phone: Internal Medicine [place] Comment on above: Refill Request Start: 06-21-2024 End: 06-21-2024 Telephone encounter Misbah Elkins MD Work Phone: Internal Medicine [place] Comment on above: No Show Start: 06-15-2024 End: 06-16-2024 Refill Misbah Elkins MD Work Phone: Internal Medicine [place] Comment on above: Refill Request Start: 06-02-2024 End: 06-02-2024 Emergency department patient visit Misbah Elkins Facility:[facility] Start: 05-18-2024 End: 05-18-2024 Office outpatient visit 25 minutes Misbah Elkins MD Work Phone: Internal Medicine [place] Comment on above: Anxiety (Primary Dx) ; 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 chronic pancreatitis (HCC); Chronic obstructive pulmonary disease, unspecified COPD type (HCC); Essential hypertension Start: 05-18-2024 End: 05-18-2024 ambulatory MISBAH ELKINS Facility:[facility] Start: 05-13-2024 End: 05-16-2024 Refill Misbah Elkins MD Work Phone: Internal Medicine [place] Comment on above: Refill Request Start: 05-11-2024 End: 05-11-2024 ambulatory Anat Gutiérrez NP [place] Start: 05-04-2024 ambulatory Misbah Elkins M Tiffani Work Phone: Internal Medicine [place] [id number] Start: 04-15-2024 Refill Misabh Elkins M D Work Phone: Internal Medicine [place] Comment on above: Refill Request Start: 03-23-2024 Refill Misbah Elkins M D Work Phone: Internal Medicine [place] Comment on above: Refill Request; Open ed In Error Start: 03-18-2024 Refill Misbah Schofieldta M D Work Phone: Internal Medicine [place] Comment on above: Refill Request Start: 03-14-2024 Refill Misbah Elkins M D Work Phone: Family Medicine [place] Comment on above: Refill Request Start: 02-26-2024 Refill Misbah Elkins M D Work Phone: Internal Medicine [place] Comment on above: Refill Request Start: 02-19-2024 Refill Misbah Elkins M D Work Phone: Internal Medicine [place] Comment on above: Refill Request Start: 02-04-2024 Telephone encounter Misbah michelle MD Work Phone: Internal Medicine [place] Comment on above: Patient Update Start: 01-27-2024 Telephone encounter Tara nayak REGIONAL LIAISON.RN FACULTY Work Phone: Family Medicine [place] Comment on above: Results Start: 01-25-2024 End: 01-25-2024 Subsequent hospital visit by physician Xr [facility] [place] Work Phone: Radiology Comment on above: Pneumonia due to inf ectious organism, unspecified laterality, unspecified part of lung [J18.9] Start: 01-25-2024 End: 01-25-2024 Patient encounter procedure Tara Youngblood REGIONAL LIAISON.RN FACULTY Work Phone: Family Medicine [place] Comment on above: Pneumonia due to inf ectious organism, unspecified laterality, unspecified part of lung (Primary Dx); Acute right ankle pain Start: 01-22-2024 Refill Misbah Back Work Phone: Internal Medicine [place] Comment on above: Refill Request Start: 01-19-2024 End: 01-20-2024 Emergency department patient visit Dr. Víctor Huerta Work Phone: [facility]-Emergency Department Work Phone: Start: 01-18-2024 Refill Misbah Back Work Phone: Internal Medicine [place] Comment on above: Refill Request Start: 01-12-2024 Telephone encounter Aant ventura REGIONAL LIAISON.RN FACULTY Work Phone: Internal Medicine [place] Comment on above: Medication Question Start: 01-12-2024 End: 01-12-2024 Patient encounter procedure Anat Gutiérrez REGIONAL LIAISON.RN FACULTY Work Phone: Internal Medicine [place] Comment on above: Essential hypertensi on, benign (Primary Dx); Hyponatremia; Leukocytosis, unspecified type; COPD with exacerbation (HCC); Pneumonia due to infectious organism, unspecified laterality, unspecified part of lung Start: 01-06-2024 ambulatory Misbah Back Work Phone: [facility] Start: 01-06-2024 Telephone encounter Misbah michelle MD Work Phone: Internal Medicine [place] Comment on above: Vaginal Problem Transition Of Care Start: 01-05-2024 Non-patient / Non-visit Dr. Cary Work Phone: [facility] Inpatient Physicians Work Phone: Start: 01-04-2024 Non-patient / Non-visit Dr. Cary Work Phone: [facility] Inpatient Physicians Work Phone: Start: 01-03-2024 Non-patient / Non-visit Dr. Cary Work Phone: [facility] Inpatient Physicians Work Phone: Start: 01-02-2024 End: 01-05-2024 Evaluation and management of inpatient [facility] Work Phone: Start: 12-16-2023 End: 12-16-2023 Patient encounter procedure Larry Talley PA-C Work Phone: Internal Medicine [place] Comment on above: Tachycardia (Primary Dx); 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 chronic pancreatitis (HCC); Hyperlipidemia, unspecified hyperlipidemia type; Insomnia, unspecified type; Vitamin D deficiency; Chronic obstructive pulmonary disease, unspecified COPD type (HCC); Prediabetes Start: 11-02-2023 Refill Pako Palumbo Work Phone: Hematology/Oncology Comment on above: Refill Request Start: 07-09-2023 Telephone encounter Larry Lee PA-C Work Phone: Internal Medicine [place] Comment on above: Patient Question Start: 07-08-2023 End: 07-08-2023 Emergency department patient visit PROTECTION ENGINEER-C SOILA EASTON Work Phone: [facility]-Emergency Department Work Phone: Start: 06-30-2023 End: 06-30-2023 Patient encounter procedure PROTECTION ENGINEERMiriam EASTON Work Phone: [facility]-Pulmonary Medicine [facility] Work Phone: Start: 06-12-2023 Refill Misbah Back Work Phone: Internal Medicine [place] Comment on above: Refill Request Start: 06-10-2023 Refill Soila Easton APRN, .CNP Work Phone: Internal Medicine [place] Comment on above: Refill Request Start: 06-03-2023 ambulatory Misbah Back Work Phone: Internal Medicine [facility] Start: 06-02-2023 End: 06-02-2023 Emergency department patient visit [facility] Work Phone: Start: 06-02-2023 End: 06-02-2023 Patient encounter procedure [facility]Cat Scan, [facility] Work Phone: Start: 05-18-2023 Refill Misbah Back Work Phone: Internal Medicine [place] Comment on above: Refill Request Start: 05-05-2023 ambulatory Yrn Ortega Facility:[id number] Start: 04-15-2023 End: 04-15-2023 Patient encounter procedure Larry Talley PA-C Work Phone: Internal Medicine [place] Comment on above: Arthralgia of right temporomandibular joint (Primary Dx); Insomnia, unspecified type; Nausea; Alcohol use disorder, moderate, dependence (HCC) Start: 03-24-2023 Refill Misbah Back Work Phone: Internal Medicine [place] Comment on above: Refill Request Start: 03-10-2023 ambulatory Misbah Back Work Phone: Internal [facility] Start: 03-09-2023 ambulatory Yrn Shannon Facility:[id number] Start: 01-28-2023 ambulatory Yrn Ortega Facility:[id number] Start: 12-31-2022 Telephone encounter Misbah michelle MD Work Phone: Family Medicine [place] Comment on above: Medication Request Start: 12-22-2022 Patient encounter procedure Soila Easton Work Phone: [facility] Work Phone: Start: 12-22-2022 [id number] Start: 12-03-2022 ambulatory Yrn [facility] Facility:[id number] Start: 11-28-2022 End: 11-28-2022 Patient encounter procedure Soila Easton APRN.CNP Work Phone: Internal Medicine [place] Comment on above: Prediabetes (Primary Dx) Start: 11-27-2022 Telephone encounter Misbah michelle MD Work Phone: Internal Medicine [place] Comment on above: Erroneous encounter- disregard Results [...] End: 11-25-2022 Subsequent hospital visit by physician Xr [facility] [place] Work Phone: Radiology Comment on above: Numbness and tinglin g of both lower extremities [R20.0, R20.2] Start: 11-25-2022 End: 11-25-2022 Patient encounter procedure Misbah Elkins MD Work Phone: Internal Medicine [place] Comment on above: Numbness and tinglin g of both lower extremities (Primary Dx); CHUY (acute kidney injury) (HCC); Essential hypertension, benign; Hyperlipidemia, unspecified hyperlipidemia type Start: 11-12-2022 Telephone encounter Misbah michelle MD Work Phone: Family Medicine [place] Comment on above: Results Start: 11-11-2022 End: 11-11-2022 Subsequent hospital visit by physician Xr [facility] [place] Work Phone: Radiology Comment on above: Chronic obstructive pulmonary disease, unspecified COPD type (HCC) [J44.9] Start: 11-11-2022 End: 11-11-2022 Patient encounter procedure Misbah Elkins MD Work Phone: Internal Medicine [place] Comment on above: CHUY (acute kidney in jury) (HCC) (Primary Dx); Chronic obstructive pulmonary disease, unspecified COPD type (HCC); Alcohol use disorder, moderate, dependence (HCC); Essential hypertension, benign; Hyperlipidemia, unspecified hyperlipidemia type; Tobacco use disorder; Reactive depression; Moderate episode of recurrent major depressive disorder (HCC); 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 chronic pancreatitis (HCC) Start: 11-07-2022 Non-patient / Non-visit PROTECTION ENGINEER-C J OY OLDER Work Phone: [facility] Inpatient Physicians Start: 11-06-2022 Non-patient / Non-visit PROTECTION ENGINEER-C J OY OLDER Work Phone: [facility] Inpatient Physicians Start: 11-06-2022 Non-patient / Non-visit PROTECTION ENGINEER-C J OY OLDER Work Phone: [facility] Start: 11-05-2022 Non-patient / Non-visit PROTECTION ENGINEER-C J OY OLDER Work Phone: [facility] Inpatient Physicians Start: 11-05-2022 Non-patient / Non-visit PROTECTION ENGINEER-C J OY OLDER Work Phone: [facility] Start: 11-05-2022 Non-patient / Non-visit PROTECTION ENGINEER-C J OY OLDER Work Phone: [facility] Start: 11-04-2022 Non-patient / Non-visit PROTECTION ENGINEER-C J OY OLDER Work Phone: [facility] Inpatient Physicians Start: 11-04-2022 Non-patient / Non-visit PROTECTION ENGINEER-C J OY OLDER Work Phone: [facility] Start: 11-03-2022 Non-patient / Non-visit PROTECTION ENGINEER-C J OY OLDER Work Phone: [facility] Inpatient Physicians Start: 11-03-2022 Non-patient / Non-visit PROTECTION ENGINEER-C J OY OLDER Work Phone: [facility] Start: 11-02-2022 End: 11-02-2022 Non-patient / Non-visit PROTECTION ENGINEER-C SOILA RUSTAM Work Phone: [facility] Start: 11-02-2022 Non-patient / Non-visit PROTECTION ENGINEER-C J OY OLDER Work Phone: [facility] Inpatient Physicians Start: 11-01-2022 Non-patient / Non-visit PROTECTION ENGINEER-C J OY OLDER Work Phone: [facility] Inpatient Physicians Start: 11-01-2022 End: 11-07-2022 Evaluation and management of inpatient PROTECTION ENGINEER-C SOILA OLDER Work Phone: [facility]-Progressive Care Unit Start: 11-01-2022 Chart Update Soila Valdes Older Work Phone: [facility] Work Phone: Start: 10-31-2022 End: 10-31-2022 Patient encounter procedure Misbah Elkins MD Work Phone: Internal Medicine [place] Comment on above: Cellulitis of right orbital region (Primary Dx); CHUY (acute kidney injury) (HCC); Uncontrolled hypertension; Tobacco abuse, in remission; Lung mass Start: 10-24-2022 End: 10-29-2022 Evaluation and management of inpatient Chrisja Ch[place]ali [facility] Rm 2026 09 Start: 10-23-2022 Telephone encounter Jaime rodriguez MD Work Phone: [facility] Ophthalmology (Eye) Residents Comment on above: Speak to Provider Start: 10-22-2022 End: 10-22-2022 ambulatory UNKNOWN PROVIDER Facility:[facility] Start: 10-21-2022 ambulatory UNKNOWN PROVIDER Facili ty:[facility] Start: 10-21-2022 Evaluation and manag ement of inpatient [facility] Start: 10-20-2022 End: 10-24-2022 Evaluation and management of inpatient [facility] Start: 10-20-2022 Telephone encounter Jeffy price MD Work Phone: [facility] Start: 10-20-2022 End: 10-20-2022 ambulatory UNKNOWN PROVIDER Facility:[facility] Start: 10-20-2022 Emergency department patient visit UNKNOWN PROVIDER Facility:[facility] Start: 10-20-2022 End: 10-20-2022 Office outpatient visit 25 minutes Jeffery Jin MD Work Phone: [facility] Ophthalmology (Eye) Residents Comment on above: Inflammation of orbi kristopher region (Primary Dx) Start: 10-19-2022 End: 10-20-2022 Emergency department patient visit PROTECTION ENGINEER-Nichole EASTON [facility] Start: 09-05-2022 End: 09-05-2022 Patient encounter procedure PROTECTION ENGINEERMiriam EASTON [facility] Start: 08-27-2022 End: 08-27-2022 Patient encounter procedure Soila Easton APRN.RN FACULTY Work Phone: Internal [facility] Comment on above: Chronic obstructive pulmonary disease, unspecified COPD type (HCC) (Primary Dx) Start: 08-22-2022 End: 08-22-2022 Emergency department patient visit PROTECTION ENGINEERMiriam EASTON [facility] Start: 07-18-2022 End: 07-18-2022 Patient encounter procedure Soila Easton APRN.RN FACULTY Work Phone: Internal Medicine [place] Comment on above: Essential hypertensi on, benign (Primary Dx); Multiple joint pain; 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 chronic pancreatitis (HCC); Chronic obstructive pulmonary disease, unspecified COPD type (HCC); Right otitis media, unspecified otitis media type; Need for influenza vaccination Start: 06-25-2022 ambulatory Misbah Back Work Phone: Internal [facility] [place] Start: 06-25-2022 Telephone encounter Inge doshi APRN.CNP Work Phone: OB/Gynecology Comment on above: Vaginal Problem Start: 06-13-2022 Refill Misbah Back Work Phone: Internal Medicine [place] Comment on above: Refill Request Start: 05-28-2022 End: 05-28-2022 ambulatory [facility] Work Phone: Start: 05-28-2022 End: 05-28-2022 Patient encounter procedure [facility] Start: 05-27-2022 End: 05-27-2022 Patient encounter procedure Claudia Odonnell MD Work Phone: Gastroenterology [place] Comment on above: 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 receiving checker luis pancreatitis (HCC); Alcoholic hepatitis without ascites Start: 05-22-2022 Refill Misbah Back Work Phone: Internal Medicine [place] Comment on above: Refill Request Start: 05-16-2022 Refill Soila Older REGIONAL LIAISON .IGOR Work Phone: Internal Medicine [place] Comment on above: Refill Request Start: 05-02-2022 End: 05-02-2022 Subsequent hospital visit by physician [facility] Work Phone: Radiology Comment on above: 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 receiving checker luis pancreatitis (HCC) [K86.0] Start: 04-18-2022 Refill Soila Older REGIONAL LIAISON .IGOR Work Phone: Internal Medicine [place] Comment on above: Refill Request Start: 04-18-2022 Telephone encounter Soila Easton REGIONAL LIAISON.IGOR Work Phone: Family Medicine [place] Comment on above: Opened In Error Start: 04-17-2022 Telephone encounter Soila Older REGIONAL LIAISON.IGOR Work Phone: Family Medicine [place] Comment on above: Medication Question Start: 04-17-2022 End: 04-17-2022 Patient encounter procedure Soila Older REGIONAL LIAISON.IGOR Work Phone: Internal Medicine [place] Comment on above: Essential hypertensi on, benign (Primary Dx); Hyperlipidemia, unspecified hyperlipidemia type; Chronic fatigue; Alcoholic hepatitis without ascites; 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 chronic pancreatitis (HCC); Iron deficiency; Vitamin D deficiency; MICKEY (generalized anxiety disorder); Reactive depression Start: 03-21-2022 Refill Misbah Back Work Phone: Internal [facility] Comment on above: Refill Request Start: 03-21-2022 Refill Soila SantanaRN FACULTY Work Phone: Internal [facility] Comment on above: Refill Request Start: 03-11-2022 Telephone encounter Inge doshi APRN.RN FACULTY Work Phone: OB/Gynecology Comment on above: Vaginal Problem Start: 03-03-2022 End: 03-03-2022 Emergency department patient visit PROTECTION ENGINEER-Nichole Teague NP Work Phone: [facility]-Emergency Department Start: 02-21-2022 Refill Soila SantanaRN FACULTY Work Phone: [facility] Comment on above: Refill Request Start: 02-11-2022 ambulatory Misbah Back Work Phone: [facility] Start: 01-16-2022 End: 01-16-2022 Patient encounter procedure CARMEN Teague PROTECTION ENGINEER Work Phone[facility] Start: 12-27-2021 Refill Víctor Mcpherson APRN.RN FACULTY, DNP Work Phone: [facility] Comment on above: Refill Request Start: 06-11-2017 End: 06-12-2017 Ambulatory CHING MARI Facility:[facility] Procedures Date Procedure Procedure Detail Performing Clinician Start: 03-15-2025 Carbon dioxide measurement, partial pressure Dr. Misbah Elkins MD Work Phone: Start: 03-15-2025 Gases blood o2 saturation only direct esthela Dr. Misbah Elkins MD Work Phone: Start: 03-15-2025 Measurement of partial pressure of oxygen in blood Dr. Misbah Elkins MD Work Phone: Start: 03-15-[address] Misbah Elkins MD Work Phone: Start: 03-15-[address] Misbah Elkins MD Work Phone: Start: 03-15-[address] Misbah Elkins MD Work Phone: Start: 03-15-2025 Blood count smear mcrscp w/mnl difrntl wbc count Dr. Misbah Elkins MD Work Phone: Start: 03-15-[address] Tayla Elkins MD Work Phone: Start: 03-15-2025 Mean corpuscular hemoglobin concentration determination Dr. Misbah Elkins MD Work Phone: Start: 03-15-2025 Nucleated red blood cell count procedure Dr. Misbah Elkins MD Work Phone: Start: 03-15-2025 End: 03-15-2025 Plain chest X-ray Dr. Misbah Elkins MD Work Phone: Start: 03-15-2025 Platelet mean volume determination Dr. Misbah Elkins MD Work Phone: Start: 03-14-[address] Misbah Elkins MD Work Phone: Start: 03-13-2025 Urine microscopy: red cells Dr. Misbah swann MD Work Phone: Start: 03-13-2025 Urnls dip stick/tablet reagent auto microscopy Dr. Misbah Elkins MD Work Phone: Start: 03-13-[address] Misbah Elkins MD Work Phone: Start: 03-13-2025 X-ray of chest, PA and lateral views Dr. Misbah Elkins MD Work Phone: Start: 03-13-2025 End: 03-13-[address] Misbah Elkins MD Work Phone: Start: 03-13-2025 Computed tomography of abdomen and pelvis with intravenous contrast Dr. Misbah Elkins MD Work Phone: Start: 03-13-[address] Tayla Elkins MD Work Phone: Start: 03-13-2025 Mean corpuscular hemoglobin concentration determination Dr. Misbah Elkins MD Work Phone: Start: 03-13-2025 Nucleated red blood cell count procedure Dr. Misbah Elkins MD Work Phone: Start: 03-13-2025 Platelet mean volume determination Dr. Misbah Elkins MD Work Phone: Start: 03-13-[address] Misbah Elkins MD Work Phone: Start: 03-10-2025 Ercp dx collection specimen brushing/washing Jane Farrell MD Work Phone: Start: 02-26-2025 Computed tomography of abdomen and pelvis with intravenous contrast Dr. Misbah Elkins MD Work Phone: Start: 02-26-2025 Blood count smear mcrscp w/mnl difrntl wbc count Dr. Misbah Elkins MD Work Phone: Start: 02-26-[address] Tayla Elkins MD Work Phone: Start: 02-26-2025 Mean corpuscular hemoglobin concentration determination Dr. Misbah Elkins MD Work Phone: Start: 02-26-2025 Nucleated red blood cell count procedure Dr. Misbah Elkins MD Work Phone: Start: 02-26-2025 Platelet mean volume determination Dr. Misbah Elikns MD Work Phone: Start: 02-26-[address] Misbah Elkins MD Work Phone: Start: 01-27-2025 X-ray of chest, PA and lateral views Dr. Misbah Elkins MD Work Phone: Start: 01-27-2025 Blood count smear mcrscp w/mnl difrntl wbc count Dr. Misbah Elkins MD Work Phone: Start: 01-27-[address] Tayla Elkins MD Work Phone: Start: 01-27-2025 Mean corpuscular hemoglobin concentration determination Dr. Misbah Elkins MD Work Phone: Start: 01-27-2025 Nucleated red blood cell count procedure Dr. Misbah Elkins MD Work Phone: Start: 01-27-2025 Platelet mean volume determination Dr. Misbah Elkins MD Work Phone: Start: 01-27-[address] Misbah Elkins MD Work Phone: Start: 01-01-2025 Plain chest X-ray Dr. Misbah Elkins MD Work Phone: Start: 01-01-2025 Blood count smear mcrscp w/mnl difrntl wbc count Dr. Misbah Elkins MD Work Phone: Start: 01-01-2025 Blood disorder - initial assessment Dr. Misbah Elkins MD Work Phone: Start: 01-01-[address] Tayla Elkins MD Work Phone: Start: 01-01-2025 Flow cytometry cell surf marker techl only 1st Dr. Misbah Elkins MD Work Phone: Start: 01-01-2025 Mean corpuscular hemoglobin concentration determination Dr. Misbah Elkins MD Work Phone: Start: 01-01-2025 Myelocyte percent differential count Dr. Misbah Elkins MD Work Phone: Start: 01-01-2025 Platelet mean volume determination Dr. Misbah Elkins MD Work Phone: Start: 01-01-[address] Misbah Elkins MD Work Phone: Start: 12-24-2024 Blood count smear mcrscp w/mnl difrntl wbc count Dr. Misbah Elkins MD Work Phone: Start: 12-24-[address] Tayla Elkins MD Work Phone: Start: 12-24-2024 Mean corpuscular hemoglobin concentration determination Dr. Misbah Elkins MD Work Phone: Start: 12-24-2024 Nucleated red blood cell count procedure Dr. Misbah Elkins MD Work Phone: Start: 12-24-2024 Platelet mean volume determination Dr. Misbah Elkins MD Work Phone: Start: 12-24-[address] Misbah Elkins MD Work Phone: Start: 12-12-[address] Misbah ramirez MD Work Phone: Start: 12-12-2024 Blood count smear mcrscp w/mnl difrntl wbc count Dr. Misbah Elkins MD Work Phone: Start: 12-12-[address] Tayla Elkins MD Work Phone: Start: 12-12-2024 Flow cytometry cell surf marker techl only 1st Dr. Misbah Elkins MD Work Phone: Start: 12-12-2024 Mean corpuscular hemoglobin concentration determination Dr. Misbah Elkins MD Work Phone: Start: 12-12-2024 Myelocyte percent differential count Dr. Misbah Elkins MD Work Phone: Start: 12-12-2024 Platelet mean volume determination Dr. Misbah Elkins MD Work Phone: Start: 12-11-2024 Blood disorder - initial assessment Dr. Misbah Elkins MD Work Phone: Start: 12-10-[address] Misbah Elkins MD Work Phone: Start: 12-10-[address] Misbah Elkins MD Work Phone: Start: 12-08-[address] Misbah Elkins MD Work Phone: Start: 12-07-2024 SARS-CoV-2, Influenza & RSV (PCR) Dr. Jennifer Elkins MD Work Phone: Start: 12-07-2024 Dr. Misbah Elkins MD Work Phone: Start: 12-06-2024 Nucleated red blood cell count procedure Dr. Misbah Elkins MD Work Phone: Start: 12-05-2024 Carbon dioxide measurement, partial pressure Dr. Misbah Elkins MD Work Phone: Start: 12-05-2024 Gases blood o2 saturation only direct esthela Dr. Misbah Elkins MD Work Phone: Start: 12-05-2024 Measurement of partial pressure of oxygen in blood Dr. Misbah Elkins MD Work Phone: Start: 12-05-[address] Misbah Elkins MD Work Phone: Start: 12-05-2024 Serum inorganic phosphate measurement Dr. Misbah Elkins MD Work Phone: Start: 12-04-2024 CT angiography of chest with contrast Dr. Misbah Elkins MD Work Phone: Start: 12-04-[address] Misbah Elkins MD Work Phone: Start: 12-04-2024 X-ray of chest, PA and lateral views Dr. Misbah Elkins MD Work Phone: Start: 12-04-[address] Misbah Elkins MD Work Phone: Start: 12-04-2024 SARS-CoV-2, Influenza & RSV (PCR) Dr. Jennifer Elkins MD Work Phone: Start: 12-04-2024 Dr. Misbah Elkins MD Work Phone: Start: 12-01-2024 Esophagoscp rig transoral hypopharynx crv breanne Senior REGIONAL LIAISON.RN FACULTY Work Phone: Start: 11-07-2024 Radiologic exam chest 2 views Misbah michelle MD Work Phone: Start: 08-10-2024 Urnls dip stick/tablet rgnt auto w/o microscopy Soila Easton REGIONAL LIAISON.RN FACULTY Work Phone: Start: 01-25-2024 Radiologic exam chest 2 views Tara nayak REGIONAL LIAISON.RN FACULTY Work Phone: Start: 01-19-2024 X-ray of both feet Dr. Víctor Huerta Work Phone: Start: 01-11-2024 Lipid 1996 panel - Serum or Plasma Anat Gutiérrez REGIONAL LIAISON.RN FACULTY Work Phone: Start: 01-04-2024 Investigation of transfusion reaction Dr. Víctor Huerta Work Phone: Start: 01-04-[address] Víctor Huerta Work Phone: Start: 01-02-2024 CT angiography of chest with contrast Start: 01-02-2024 Plain chest X-ray Start: 01-02-2024 Bacteria identified in Blood by Culture Dr. Víctor Huerta Work Phone: Start: 01-02-2024 SARS-CoV-2, Influenza & RSV (PCR) Start: 07-08-2023 Plain chest X-ray PROTECTION ENGINEER-C SOILA EASTON Work Phone: Start: 07-08-2023 SARS-CoV-2 & FLU Antigen (Rapid) PROTECTION ENGINEER-C DIOGENES EASTON Work Phone: Start: 06-02-2023 Plain chest X-ray Start: 06-02-2023 CT of chest PROTECTION ENGINEER-C SOILA EASTON Work Phone: Start: 06-02-2023 SARS-CoV-2 & FLU Antigen (Rapid) Start: 11-25-2022 Radex spine lumbosacral 2/3 views Misbah Elkins MD Work Phone: Start: 11-11-2022 Radiologic exam chest 2 views Misbah michelle MD Work Phone: Start: 11-04-2022 Plain chest X-ray PROTECTION ENGINEER-C SOILAMicaela EASTON Work Phone: Start: 11-04-2022 CT of chest, abdomen and pelvis without contrast PROTECTION ENGINEER-C SOILA EASTON Work Phone: Start: 11-02-2022 Plain chest X-ray PROTECTION ENGINEER-C SOILA EASTON Work Phone: Start: 10-24-2022 Renal function 2000 panel - Serum or Plasma Demarco Moya Start: 10-22-2022 End: 10-22-2022 [facility]eval intermediate [facility] pt Inflammation of orbital region Jaime Aggarwal MD Work Phone: Comment on above: Inflammation of orbital region (Primary Dx) Start: 10-21-2022 End: 10-21-2022 [facility]eval intermediate [facility] pt Orbital inflammation Installation Helper Comment on above: Orbital inflammation (Primary Dx) Start: 10-19-2022 CT of head with contrast PROTECTION ENGINEER-Nichole EASTON Work Phone: Start: 08-22-2022 CT angiography of chest with contrast PROTECTION ENGINEER-C SOILA EASTON Work Phone: Start: 08-22-2022 Plain chest X-ray PROTECTION ENGINEER-C SOILA EASTON Work Phone: Start: 07-18-2022 INFLUENZA VACCINE QUADRIVALENT 6 MO - 64 YRS IM Soila Easton REGIONAL LIAISON.RN FACULTY Work Phone: Start: 05-28-2022 CT of chest Start: 05-02-2022 Us abdominal real time w/image limited Soila Easton APRN.RN FACULTY Work Phone: Start: 04-17-2022 Lipid 1996 panel - Serum or Plasma Soila Easton REGIONAL LIAISON.RN FACULTY Work Phone: Start: 03-03-2022 SARS-CoV-2 & FLU Antigen (Rapid) PROTECTION ENGINEER-C Onesimo Teague PROTECTION ENGINEER Work Phone: Start: 03-03-2022 Plain chest X-ray PROTECTION ENGINEER-C Theron Teague PROTECTION ENGINEER Work Phone: Start: 01-10-2021 Colonoscopy Víctor Mcpherson APRN.RN FACULTY, DNP Work Phone: Start: 08-28-2020 Mammography Víctor Mcpherson APRN.RN FACULTY, DNP Work Phone: Appendectomy Soila Easton Work Phone: Bacteria identified in Blood by Culture PROTECTION ENGINEER-Nichole EASTON Work Phone: Bacteria identified in Blood by Culture PROTECTION ENGINEER-Nichole EASTON Work Phone: Cholecystectomy Soila Valdes Older Work Phone: Enteric Bacteriology PROTECTION ENGINEER-C DIOGENES EASTON Work Phone: H/O: tubal ligation History of t ubal ligation PROTECTION ENGINEER-C Theron Teague PROTECTION ENGINEER Work Phone: History of appendectomy History of appendectomy PROTECTION ENGINEER-C Theron Teague PROTECTION ENGINEER Work Phone: Respiratory Panel (PCR) PROTECTION ENGINEER-Nichole RODRIGUEZ [facility] Work Phone: Respiratory syncytia l virus antigen assay PROTECTION ENGINEER-Nichole RODRIGUEZ [facility] Work Phone: SARS-CoV-2 & FLU Antigen (Rapid) SARS-CoV-2 & FLU Antigen (Rapid) PROTECTION ENGINEER-Nichole RODRIGUEZ [facility] Work Phone: SARS-CoV-2 & FLU Antigen (Rapid) PROTECTION ENGINEER-Nichole EASTON Work Phone: SARS-CoV-2 & FLU Antigen (Rapid) PROTECTION ENGINEER-Nichole RODRIGUEZ [facility] Work Phone: Urine culture PROTECTION ENGINEER-Nichole EASTON Work Phone: Plan of Treatment Date Care Activity Detail Author Start: 08-12-2030 Tetanus vaccination Tetanus (Td or Tdap) Booster [facility] Start: 01-10-2029 Lipid panel Lipid Screening [facility] Start: 2028 PNEUMOCOCCAL (3 - PPSV23 if available, else PCV20) PNEUMOCOCCAL (3 - PPSV23 if available, else PCV20) [facility] Start: 2028 PNEUMOCOCCAL (3 - PPSV23 or PCV20) PNEUMOCOCCAL (3 - PPSV23 or PCV20) [facility] Start: 2028 Pneumococcal vaccination [facility] Start: 03-23-2028 Diabetes Screening Diabetes Screening [facility] Start: 03-22-2028 Diabetes Screening Diabetes Screening [facility] Start: 03-16-2028 Diabetes Screening Diabetes Screening [facility] Start: 12-20-2027 Diabetes Screening Diabetes Screening [facility] Start: 08-12-2027 Diabetes Screening Diabetes Screening [facility] Start: 04-17-2027 Cholesterol [Mass/volume] in Serum or Plasma Cholesterol [facility] Start: 04-17-2027 Lipid 1996 panel - Serum or Plasma Lipid Screening [facility] Start: 04-17-2027 Lipid panel Lipid Screening [facility] Start: 04-17-2027 LIPID SCREEN LIPID SCREEN [facility] Start: 01-10-2027 Diabetes Screening Diabetes Screening [facility] Start: 07-19-2026 LIPID SCREEN LIPID SCREEN [facility] Start: 02-19-2026 DIABETES SCREEN DIABETES SCREEN [facility] Start: 02-19-2026 Diabetes Screening Diabetes Screening [facility] Start: 01-13-2026 Annual PCP Team Chronic Disease Visit Annual PCP Team Chronic Disease Visit [facility] Start: 01-13-2026 BP Controlled (<130/80) BP Controlled (<130/80) [facility] Start: 01-13-2026 zzBP Controlled (<130/80) (Retired) zzBP Controlled (<130/80) (Retired) [facility] Start: 12-19-2025 Annual PCP Team Chronic Disease Visit Annual PCP Team Chronic Disease Visit [facility] Start: 12-19-2025 BP Controlled (<130/80) BP Controlled (<130/80) [facility] Start: 11-26-2025 DIABETES SCREEN DIABETES SCREEN [facility] Start: 11-11-2025 DIABETES SCREEN DIABETES SCREEN [facility] Start: 11-07-2025 Annual PCP Team Chronic Disease Visit Annual PCP Team Chronic Disease Visit [facility] Start: 11-07-2025 BP Controlled (<130/80) BP Controlled (<130/80) [facility] Start: 10-20-2025 DIABETES SCREEN DIABETES SCREEN [facility] Start: 08-15-2025 Annual PCP Team Chronic Disease Visit Annual PCP Team Chronic Disease Visit [facility] Start: 08-15-2025 BP Controlled (<130/80) BP Controlled (<130/80) [facility] Start: 08-10-2025 Annual PCP Team Chronic Disease Visit Annual PCP Team Chronic Disease Visit [facility] Start: 08-05-2025 Annual PCP Team Chronic Disease Visit Annual PCP Team Chronic Disease Visit [facility] Start: 08-05-2025 BP Controlled (<130/80) BP Controlled (<130/80) [facility] Start: 07-10-2025 End: 07-10-2025 Patient encounter procedure 07/10/2025 11:00 AM EDT Appointment Gastroenterology [address] [address] Jane Farrell MD [address] [address] Chronic recurrent pancreatitis (HCC) [K86.1]4month f/u Gastroenterology Comment on above: Chronic recurrent pancreatitis (HCC) [K8 6.1]4mon f/u Start: 05-29-2025 Influenza vaccination Influenza Vaccine (#1) [facility] Start: 05-18-2025 Annual PCP Team Chronic Disease Visit Annual PCP Team Chronic Disease Visit [facility] Start: 05-18-2025 BP Controlled (<130/80) BP Controlled (<130/80) [facility] Start: 04-25-2025 End: 04-25-2025 ambulatory 04/25/2025 10:00 AM EDT [facility] Neurology Pain [address] [place], [place] [id number] Milly Saleh, UNA.RN FACULTY, DNP [address] [place], [place] [id number] Chronic recurrent pancreatitis (HCC) [K86.1]; 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]; Chronic RUQ pain [R10.11, G89.29] Neurology Pain Comment on above: Chronic recurrent pancreatitis (HCC) [K8 6.1]; 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]; Chronic RUQ pain [R10.11, G89.29] Start: 04-18-2025 End: 04-18-2025 Patient encounter procedure 04/18/2025 2:30 PM EDT Office Visit Gastroenterology [address] [address] Juan Senior, REGIONAL LIAISON.RN FACULTY [address] [place] [address] Follow up ERCP Gastroenterology Comment on above: Follow up ERCP Start: 04-17-2025 DIABETES SCREEN DIABETES SCREEN [facility] Start: 04-17-2025 End: 04-17-2025 Patient encounter procedure 04/17/2025 1:00 PM EDT Office Visit [facility] [place] [address] [place] [address] Soila Easton APRN.RN FACULTY [address] [place] [address] 3 month follow up [facility] [place] Comment on above: 3 month follow up Start: 04-12-2025 End: 04-12-2025 Patient encounter procedure 04/12/2025 11:00 AM EDT Office Visit Pulmonary Medicine [address] [place] [address] Madeline Sebastian MD [address] [place] [address] hosp follow up [facility] Pulmonary Medicine Comment on above: hosp follow up [facility] Start: 04-10-2025 End: 04-10-2025 Patient encounter procedure 04/10/2025 1:40 PM EDT Office Visit [facility] [place] [address] [place] [address] Nicolas Greer APRN.NATIONAL ACCOUNT MANAGER [address] [place] [address] rescheduled from 04/04 [facility] [place] Comment on above: rescheduled from 04/04 Start: 04-04-2025 End: 04-04-2025 Patient encounter procedure 04/04/2025 3:40 PM EDT Office Visit [facility] [place] [address] [place] [address] Misbah Elkins MD [address] [place] [address] hosp follow up from [facility] for pneumonia 03/15-03/23 [facility] [place] Comment on above: hosp follow up from [facility] for pneumonia 03/15-03/23 Start: 04-04-2025 End: 04-04-2025 ambulatory 04/04/2025 2:30 PM EDT [facility] Neurology Pain [address] [place] [address] Milly Saleh APRN.RN FACULTY, DNP [address] [place] [address] Chronic recurrent pancreatitis (HCC) [K86.1]; 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]; Chronic RUQ pain [R10.11, G89.29] Neurology Pain Comment on above: Chronic recurrent pancreatitis (HCC) [K8 6.1]; 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]; Chronic RUQ pain [R10.11, G89.29] Start: 03-29-2025 End: 03-29-2025 Patient encounter procedure 03/29/2025 11:40 AM EDT Office Visit [facility] [place] [address] [place] [address] Kervin Salmeron MD [address] [place] [address] hosp follow up [facility] Internal [facility] Comment on above: hosp follow up [facility] Start: 03-15-2025 Patient discharge [facility] Start: 03-15-2025 End: 03-15-2025 [facility] Start: 03-15-2025 Airway suction technique [facility] Start: 03-15-2025 End: 03-15-2025 Patient encounter procedure 03/15/2025 5:40 PM EDT Office Visit [facility] [place] [address] [place] [address] Soila Easton APRN.RN FACULTY [address] [place] [address] blood pressure low at ERCP procedure on 03/10 at [facility] Internal [facility] [place] Comment on above: blood pressure low at ERCP procedure on 03/10 at main campus Start: 03-15-2025 Consultation [facility] Start: 03-15-2025 Consultation [facility] Start: 03-15-2025 Continuous pulse oximetry [facility] Start: 03-15-2025 Care planning and problem solving actions [facility] Start: 03-15-2025 Following clinical pathway protocol [facility] Start: 03-15-2025 [facility] Start: 03-14-2025 End: 03-14-2025 ambulatory 03/14/2025 10:00 AM EDT [facility] Neurology Pain [address] [place] [address] Milly Saleh APRN.RN FACULTY, DNP [address] [place] [address] Chronic recurrent pancreatitis (HCC) [K86.1]; 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]; Chronic RUQ pain [R10.11, G89.29] Neurology Pain Comment on above: Chronic recurrent pancreatitis (HCC) [K8 6.1]; 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]; Chronic RUQ pain [R10.11, G89.29] Start: 03-14-2025 Triacylglycerol lipase measurement [facility] Start: 03-14-2025 Following clinical pathway protocol [facility] Start: 03-14-2025 Ambulation without limitation [facility] Start: 03-14-2025 Assessment of risk of venous thromboembolism [facility] Start: 03-14-2025 Insertion of catheter into peripheral vein [facility] Start: 03-14-2025 Oxygen therapy [facility] Start: 03-14-2025 Providing care according to standard [facility] Start: 03-14-2025 [facility] Start: 03-14-2025 Consultation [facility] Start: 03-14-2025 Inhalation therapy procedure [facility] Start: 03-14-2025 Patient referral to dietitian [facility] Start: 03-13-2025 Verification routine [facility] Start: 03-13-2025 Admission procedure [facility] Start: 03-13-2025 Hospital admission, emergency, from emergency room, medical nature [facility] Start: 03-13-2025 End: 03-13-2025 [facility] Start: 03-10-2025 End: 03-10-2025 Patient encounter procedure 03/10/2025 1:00 PM EDT Appointment Gastroenterology [address] [address] Jane Farrell MD [address] [place] [id number] Other chronic pancreatitis (HCC) [K86.1] Gastroenterology Comment on above: Other chronic pancreatitis (HCC) [K86.1] Start: 02-26-2025 End: 02-26-2025 [facility] Start: 02-06-2025 End: 02-06-2025 Patient encounter procedure 02/06/2025 9:00 AM EDT Appointment Gastroenterology [address] [address] Jane Farrell MD [address] [place] [phone] Other chronic pancreatitis (HCC) [K86.1]w/o interventions Gastroenterology Comment on above: Other chronic pancreatitis (HCC) [K86.1] w/o interventions Start: 01-30-2025 End: 01-30-2025 Anesthesia consultation 01/30/2025 11:10 AM EDT PAT Pre Anesthesia [address] [place] [id number] pre procedure 02/06 Pre Anesthesia Comment on above: pre procedure 02/06 Start: 01-27-2025 [facility] Start: 01-27-2025 [facility] Start: 01-24-2025 Annual PCP Team Chronic Disease Visit Annual PCP Team Chronic Disease Visit [facility] Start: 01-13-2025 End: 01-13-2025 Patient encounter procedure [facility] [place] Comment on above: multiple concerns multiple concerns. S ee TE from 01/09/25. Start: 01-11-2025 Annual PCP Team Chronic Disease Visit Annual PCP Team Chronic Disease Visit [facility] Start: 01-11-2025 BP Controlled (<130/80) BP Controlled (<130/80) [facility] Start: 01-05-2025 End: 01-05-2025 ambulatory 01/05/2025 1:00 PM EDT [facility] Neurology Pain [address] [place] [address] Milly Saleh APRN.RN FACULTY, DNP [address] [place], [place] [id number] Chronic recurrent pancreatitis (HCC) [K86.1]; 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]; Chronic RUQ pain [R10.11, G89.29] Neurology Pain Comment on above: Chronic recurrent pancreatitis (HCC) [K8 6.1]; 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]; Chronic RUQ pain [R10.11, G89.29] Start: 01-02-2025 End: 01-02-2025 Patient encounter procedure 01/02/2025 8:30 AM EDT Office Visit Neurology Pain [address] [place] [address] [place] [address] [place], [place] [id number] [facility]) Neurology Pain Comment on above: [facility] TO [facility] (CHR ONIC PAIN) Start: 01-01-2025 [facility] Start: 01-01-2025 [facility] Start: 12-27-2024 End: 12-27-2024 Patient encounter procedure 12/27/2024 1:00 PM EDT Appointment Gastroenterology [address] [address] Jane Farrell MD [address] [address] Other chronic pancreatitis (HCC) [K86.1] Gastroenterology Comment on above: Other chronic pancreatitis (HCC) [K86.1] Start: 12-24-2024 [facility] Start: 12-19-2024 End: 03-20-2025 CBC W Auto Differential panel - Blood [facility] Comment on above: Expected: 12/19/2024, Expires: Start: 12-19-2024 End: 03-20-2025 Comprehensive metabolic 2000 panel - Serum or Plasma [facility] Comment on above: Expected: 12/19/2024, Expires: Start: 12-19-2024 End: 03-20-2025 Lipase [Enzymatic activity/volume] in Serum or Plasma [facility] Comment on above: Expected: 12/19/2024, Expires: Start: 12-16-2024 Patient referral [facility] Work Phone: Start: 12-15-2024 Annual PCP Team Chronic Disease Visit Annual PCP Team Chronic Disease Visit [facility] Start: 12-15-2024 BP Controlled (<130/80) BP Controlled (<130/80) [facility] Start: 12-12-2024 Patient discharge [facility] Start: 12-12-2024 End: 12-12-2024 Patient encounter procedure 12/12/2024 11:00 AM EDT Office Visit [facility] [place] [address] [place] [address] Misbah Elkins MD [address] [place] [address] 1 Month F/U [facility] [place] Comment on above: 1 Month F/U Start: 12-10-2024 Respiratory Culture Respiratory Culture [facility] Start: 12-09-2024 Referral to gastroenterology service [facility] Start: 12-08-2024 Videoswallow [facility] Start: 12-08-2024 Inhalation therapy procedure [facility] Start: 12-07-2024 Speech therapy assessment [facility] Start: 12-07-2024 Continuous pulse oximetry [facility] Start: 12-07-2024 [facility] Start: 12-05-2024 Referral to service [facility] Start: 12-05-2024 Consultation [facility] Start: 12-05-2024 Continuous positive airway pressure ventilation treatment [facility] Start: 12-04-2024 Following clinical pathway protocol [facility] Start: 12-04-2024 Ambulation without limitation [facility] Start: 12-04-2024 Assessment of risk of venous thromboembolism [facility] Start: 12-04-2024 Bacteria identified in Sputum by Culture [facility] Start: 12-04-2024 Catheterization of vein [facility] Start: 12-04-2024 Incentive spirometry [facility] Start: 12-04-2024 Insertion of catheter into peripheral vein [facility] Start: 12-04-2024 Measuring intake and output [facility] Start: 12-04-2024 Oxygen therapy [facility] Start: 12-04-2024 Providing care according to standard [facility] Start: 12-04-2024 Referral to service [facility] Start: 12-04-2024 Tobacco use cessation education [facility] Start: 12-04-2024 [facility] Start: 12-04-2024 Respiratory pathogens DNA and RNA panel - Respiratory specimen by KANDY with probe detection [facility] Start: 12-04-2024 Verification routine [facility] Start: 12-04-2024 Admission procedure [facility] Start: 12-04-2024 Hospital admission, emergency, from emergency room, medical nature [facility] Start: 12-04-2024 End: 12-04-2024 [facility] Start: 12-01-2024 End: 12-01-2024 Patient encounter procedure 12/01/2024 10:00 AM EST Appointment Gastroenterology [address] [place] [address] Jane Farrell MD [address] [place] [address] Chronic recurrent pancreatitis (HCC) [K86.1] Gastroenterology Comment on above: Chronic recurrent pancreatitis (HCC) [K8 6.1] Start: 11-29-2024 End: 02-28-2025 Lipid 1996 panel - Serum or Plasma LIPID PANEL BASIC Lab Routine Hyperlipidemia Expected: 11/29/2024, Expires: 02/28/2025 [facility] Work Phone: Comment on above: Expected: 11/29/2024, Expires: Start: 11-07-2024 End: 11-07-2024 Patient encounter procedure [facility] [place] Comment on above: 3 month follow up 3 month follow up-arianne duron elevated WBC Start: 11-02-2024 End: 11-02-2024 Patient encounter procedure 11/02/2024 2:00 PM EST Office Visit Gastroenterology [address] [address] Juan Senior APRN.RN FACULTY [address] [place] [address] Chronic recurrent pancreatitis (HCC) [K86.1]; 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 chronic [...] abdominal pain Nausea Expected: 08/10/2024, Expires: 11/09/2024 [facility] Comment on above: Expected: 08/10/2024, Expires: Start: 08-10-2024 End: 11-09-2024 Comprehensive metabolic 2000 panel - Serum or Plasma COMPREHENSIVE METABOLIC PANEL Lab Routine Upper abdominal pain Nausea Expected: 08/10/2024, Expires: 11/09/2024 [facility] Comment on above: Expected: 08/10/2024, Expires: Start: 08-10-2024 End: 11-09-2024 Hemoglobin A1c in Blood HEMOGLOBIN A1C Lab Routine Urinary incontinence, unspecified type Urinary frequency Elevated glucose Expected: 08/10/2024, Expires: 11/09/2024 [facility] Comment on above: Expected: 08/10/2024, Expires: Start: 08-10-2024 End: 11-09-2024 Lipase [Enzymatic activity/volume] in Serum or Plasma LIPASE Lab Routine Upper abdominal pain Nausea Expected: 08/10/2024, Expires: 11/09/2024 [facility] Work Phone: Comment on above: Expected: 08/10/2024, Expires: Start: 08-05-2024 End: 11-04-2024 CBC W Auto Differential panel - Blood [facility] Work Phone: Comment on above: Expected: 08/05/2024, Expires: Start: 07-13-2024 End: 07-13-2024 Patient encounter procedure 07/13/2024 3:00 PM EDT Office Visit [facility] [place] [address] [place], [place] [id number] Soila Easton APRN.RN FACULTY [address] [place] [address] medication f/u [facility] [place] Comment on above: medication f/u Start: 07-05-2024 HPV TESTING HPV TESTING [facility] Start: 07-05-2024 Screening for malignant neoplasm of cervix HPV Testing [facility] Start: 06-21-2024 End: 06-21-2024 Patient encounter procedure 06/21/2024 2:00 PM EDT Office Visit [facility] [place] [address] [place] [address] Misbah Elkins MD [address] [place] [address] med check [facility] [place] Comment on above: med check Start: 05-29-2024 Covid-19 Vaccine ( season) Covid-19 Vaccine ( season) [facility] Start: 05-29-2024 Covid-19 Vaccine ( season) Covid-19 Vaccine ( season) [facility] Start: 05-29-2024 Influenza vaccination [facility] Start: 05-23-2024 End: 05-23-2024 Patient encounter procedure 05/23/2024 1:00 PM EDT Office Visit [facility] [place] [address] [place] [address] Soila Easton APRN.RN FACULTY [address] [place] [address] medication f/u [facility] [place] Comment on above: medication f/u Start: 05-17-2024 End: 05-17-2024 Patient encounter procedure 05/17/2024 4:00 PM EDT Office Visit [facility] [place] [address] [place] [address] Misbah Elkins MD [address] [place] [address] medication follow up [facility] [place] Comment on above: medication follow up Start: 05-10-2024 End: 05-10-2024 Patient encounter procedure 05/10/2024 1:40 PM EDT Office Visit [facility] [place] [address] [place] [address] Soila Easton REGIONAL LIAISON.RN FACULTY [address] [place] [address] 3 month follow up [facility] Comment on above: 3 month follow up [facility] Start: 04-21-2024 End: 04-21-2024 Patient encounter procedure 04/21/2024 8:20 AM EDT Office Visit [facility] [place] [address] [place] [address] Soila Easton, REGIONAL LIAISON.RN FACULTY [address] [place] [address] 3 month follow up [facility] [place] Comment on above: 3 month follow up [facility] Start: 04-15-2024 ANNUAL PCP TEAM CHRONIC DISEASE VISIT ANNUAL PCP TEAM CHRONIC DISEASE VISIT [facility] Start: 04-15-2024 BP CONTROLLED (<130/80) BP CONTROLLED (<130/80) [facility] Start: 03-26-2024 DIABETES SCREEN DIABETES SCREEN [facility] Start: 03-18-2024 End: 03-18-2024 Patient encounter procedure 03/18/2024 1:20 PM EDT Office Visit [facility] [place] [address] [place] [address] Soila Easton APRN.RN FACULTY [address] [place] [address] 3 month follow up [facility] [place] Comment on above: 3 month follow up [facility] Start: 01-25-2024 End: 01-25-2024 Patient encounter procedure 01/25/2024 1:20 PM EDT Office Visit [facility] [place] [address] [place] [address] Tara Youngblood, REGIONAL LIAISON.RN FACULTY [address] [facility] [place] [address] [facility] ER follow up, acute pain right foot and ankle, no clot [facility] [place] Comment on above: [facility] ER follow up, acute pain right foot and ankle, no clot Start: 01-19-2024 [facility] Start: 01-19-2024 End: 04-19-2024 Basic metabolic 2000 panel - Serum or Plasma BASIC METABOLIC PANEL Lab Routine Hyponatremia Expected: 01/19/2024 (Approximate), Expires: 04/19/2024 [facility] Work Phone: Comment on above: Expected: 01/19/2024 (Approximate), Expi res: 04/19/2024 Start: 01-19-2024 End: 04-19-2024 CBC W Auto Differential panel - Blood COMPLETE BLOOD COUNT AND DIFFERENTIAL Lab Routine Leukocytosis, unspecified type Expected: 01/19/2024 (Approximate), Expires: 04/19/2024 [facility] Work Phone: Comment on above: Expected: 01/19/2024 (Approximate), Expi res: 04/19/2024 Start: 01-11-2024 Colonoscopy COLONOSCOPY [facility] Start: 01-11-2024 COLORECTAL CANCER SCREENING COLORECTAL CANCER SCREENING [facility] Start: 01-11-2024 Screening for malignant neoplasm of colon [facility] Start: 01-05-2024 Patient discharge [facility] Start: 01-05-2024 Blood chemistry [facility] Start: 01-04-2024 Respiratory microbial culture Respiratory Culture [facility] Start: 01-04-2024 [facility] Start: 01-03-2024 Respiratory secretion precautions [facility] Start: 01-02-2024 Assessment of risk of venous thromboembolism [facility] Start: 01-02-2024 Inhalation therapy procedure [facility] Start: 01-02-2024 Insertion of catheter into peripheral vein [facility] Start: 01-02-2024 Introduction of urinary catheter [facility] Start: 01-02-2024 Measuring intake and output [facility] Start: 01-02-2024 Oxygen therapy [facility] Start: 01-02-2024 Providing care according to standard [facility] Start: 01-02-2024 Provision of activity privileges [facility] Start: 01-02-2024 Referral to service [facility] Start: 01-02-2024 Tobacco use cessation education [facility] Start: 01-02-2024 [facility] Start: 01-02-2024 Following clinical pathway protocol [facility] Start: 01-02-2024 Legionella pneumophila Ag [Presence] in Urine [facility] Start: 01-02-2024 Respiratory pathogens DNA and RNA panel - Respiratory specimen by KANDY with probe detection [facility] Start: 01-02-2024 End: 01-02-2024 Streptococcus pneumoniae antigen assay [facility] Start: 01-02-2024 Hospital admission, emergency, from emergency room, medical nature [facility] Start: 01-02-2024 Admission procedure [facility] Start: 01-02-2024 Verification routine [facility] Start: 01-02-2024 End: 01-02-2024 Blood culture [facility] Start: 01-02-2024 [facility] Start: 01-02-2024 Bacteria identified in Blood by Culture Blood Culture [facility] Start: 01-02-2024 Legionella Antigen Legionella Antigen [facility] Start: 01-02-2024 Streptococcus pneumoniae Antigen (M Streptococcus pneumoniae Antigen (M [facility] Start: 12-27-2023 ANNUAL PCP TEAM CHRONIC DISEASE VISIT ANNUAL PCP TEAM CHRONIC DISEASE VISIT [facility] Start: 12-16-2023 End: 03-16-2024 25-hydroxyvitamin D3 [Mass/volume] in Serum or Plasma VITAMIN D 25 HYDROXY Lab Routine Vitamin D deficiency Expected: 12/16/2023, Expires: 03/16/2024 [facility] Work Phone: Comment on above: Expected: 12/16/2023, Expires: Start: 12-16-2023 End: 03-16-2024 CBC W Auto Differential panel - Blood CBC + DIFF Lab Routine 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 chronic pancreatitis (HCC) Tachycardia Hyperlipidemia, unspecified hyperlipidemia type Insomnia, unspecified type Vitamin D deficiency Chronic obstructive pulmonary disease, unspecified COPD type (HCC) Prediabetes Expected: 12/16/2023, Expires: 03/16/2024 [facility] Work Phone: Comment on above: Expected: 12/16/2023, Expires: Start: 12-16-2023 End: 03-16-2024 Comprehensive metabolic 2000 panel - Serum or Plasma COMP METABOLIC PANEL Lab Routine 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 chronic pancreatitis (HCC) Tachycardia Hyperlipidemia, unspecified hyperlipidemia type Insomnia, unspecified type Vitamin D deficiency Chronic obstructive pulmonary disease, unspecified COPD type (HCC) Prediabetes Expected: 12/16/2023, Expires: 03/16/2024 [facility] Work Phone: Comment on above: Expected: 12/16/2023, Expires: Start: 12-16-2023 End: 03-16-2024 Lipid 1996 panel - Serum or Plasma LIPID PANEL BASIC Lab Routine Hyperlipidemia, unspecified hyperlipidemia type Expected: 12/16/2023, Expires: 03/16/2024 [facility] Work Phone: Comment on above: Expected: 12/16/2023, Expires: 4 Start: 11-29-2023 ANNUAL PCP TEAM CHRONIC DISEASE VISIT ANNUAL PCP TEAM CHRONIC DISEASE VISIT [facility] Start: 11-29-2023 BP CONTROLLED (<130/80) BP CONTROLLED (<130/80) [facility] Start: 11-27-2023 BP CONTROLLED (<130/80) BP CONTROLLED (<130/80) [facility] Start: 11-25-2023 ANNUAL PCP TEAM CHRONIC DISEASE VISIT ANNUAL PCP TEAM CHRONIC DISEASE VISIT [facility] Start: 11-11-2023 ANNUAL PCP TEAM CHRONIC DISEASE VISIT ANNUAL PCP TEAM CHRONIC DISEASE VISIT [facility] Start: 11-11-2023 BP CONTROLLED (<130/80) BP CONTROLLED (<130/80) [facility] Start: 10-20-2023 Basic metabolic 2000 panel - Serum or Plasma Basic Metabolic Panel [facility] Start: 08-31-2023 Pneumococcal Vaccine: 50+ (3 of 3 - PCV20 or PCV21) Pneumococcal Vaccine: 50+ (3 of 3 - PCV20 or PCV21) [facility] Start: 08-27-2023 ANNUAL PCP TEAM CHRONIC DISEASE VISIT ANNUAL PCP TEAM CHRONIC DISEASE VISIT [facility] Start: 07-18-2023 ANNUAL PCP TEAM CHRONIC DISEASE VISIT ANNUAL PCP TEAM CHRONIC DISEASE VISIT [facility] Start: 07-18-2023 BP CONTROLLED (<130/80) BP CONTROLLED (<130/80) [facility] Start: 07-08-2023 [facility] Start: 06-30-2023 Patient referral [facility] Work Phone: Start: 06-02-2023 [facility] Start: 06-02-2023 CT of chest Low Dose CT Lung Screening [facility] Start: 06-02-2023 CT THORAX LUNG CANCER SCR C- CT THORAX LUNG CANCER SCR C- [facility] Start: 05-29-2023 Covid-19 Vaccine () Covid-19 Vaccine () [facility] Start: 05-29-2023 Influenza vaccination [facility] Start: 05-27-2023 BP CONTROLLED (<130/80) BP CONTROLLED (<130/80) [facility] Start: 2023 RSV Vaccine (1 - 1-dose 60+ series) RSV Vaccine (1 - 1-dose 60+ series) [facility] Start: 2023 RSV Vaccine (1 - Risk 60-74 years 1-dose series) RSV Vaccine (1 - Risk 60-74 years 1-dose series) [facility] Start: 04-17-2023 ANNUAL PCP TEAM CHRONIC DISEASE VISIT ANNUAL PCP TEAM CHRONIC DISEASE VISIT [facility] Start: 04-17-2023 BP CONTROLLED (<130/80) BP CONTROLLED (<130/80) [facility] Start: 04-17-2023 COVID-19 VACCINE (3 - Booster for Pfizer series) COVID-19 VACCINE (3 - Booster for Pfizer series) [facility] Comment on above: Postponed from 12/27/2021 (Declined at t his time) Postponed from 09/23 (Declined at this time) Start: 04-17-2023 COVID-19 VACCINE (3 - Pfizer series) COVID-19 VACCINE (3 - Pfizer series) [facility] Comment on above: Postponed from 09/23/2021 (Declined at t his time) Start: 04-17-2023 HIV SCREENING HIV SCREENING [facility] Comment on above: Postponed from 1981 (Declined at t his time) Start: 04-17-2023 PAP TESTING PAP TESTING [facility] Comment on above: Postponed from 07/05/2020 (Declined at t his time) Start: 04-17-2023 SHINGRIX VACCINE (1 of 2) SHINGRIX VACCINE (1 of 2) [facility] Comment on above: Postponed from 2013 (Declined at t his time) Start: 04-15-2023 End: 06-15-2023 Hepatic function 2000 panel - Serum or Plasma [facility] Work Phone: Comment on above: Expected: 04/15/2023, Expires: Start: 04-08-2023 Zoledronic acid therapy ALPHA-1 ANTITRYPSIN DEFICIENCY SCREENING [facility] Comment on above: Postponed from 1993 (Declined at t his time) Start: 03-10-2023 End: 05-10-2023 Lipid 1996 panel - Serum or Plasma LIPID PANEL BASIC Lab Routine Hyperlipidemia Expected: 03/10/2023, Expires: 05/10/2023 [facility] Work Phone: Comment on above: Expected: 03/10/2023, Expires: Start: 03-09-2023 EPVPLASTIC, Provider: Yrn Ortega, Status: Pen, Time: 1:15 PM EPVPLASTIC, Provider: Yrn Ortega, Status: Pen, Time: 1:15 PM [id number]-[id number] l 3200 Work Phone: Start: 02-28-2023 End: 04-30-2023 Hemoglobin A1c in Blood HGB A1C Lab Routine Prediabetes Expected: 02/28/2023 (Approximate), Expires: 04/30/2023 [facility] Work Phone: Comment on above: Expected: 02/28/2023 (Approximate), Expi res: 04/30/2023 Start: 01-28-2023 NPVPLASTIC, Provider: Yrn Ortega, Status: Pen, Time: 2:00 PM NPVPLASTIC, Provider: Yrn Ortega, Status: Pen, Time: 2:00 PM [id number]-[id number] l 3200 Work Phone: Start: 12-15-2022 End: 12-15-2022 Patient encounter procedure 12/15/2022 Office Visit Family Practice Lalito Hoskins MD [address] [place] [address], [address] [place] [id number] [facility] Start: 12-03-2022 NPVPLASTIC, Provider: Yrn Ortega, Status: Pen, Time: 3:30 PM NPVPLASTIC, Provider: Yrn Ortega, Status: Pen, Time: 3:30 PM [id number] Giang Work Phone: Start: 12-03-2022 Patient encounter procedure [facility] [place] Start: 11-28-2022 End: 01-28-2023 Basic metabolic 2000 panel - Serum or Plasma BASIC METABOLIC PNL Lab Routine Prediabetes Expected: 11/28/2022, Expires: 01/28/2023 [facility] Work Phone: Comment on above: Expected: 11/28/2022, Expires: 3 Start: 11-27-2022 End: 01-27-2023 Urinalysis complete panel - Urine URINALYSIS, WITH MICROSCOPIC Lab Routine CHUY (acute kidney injury) (HCC) Expected: 11/27/2022, Expires: 01/27/2023 [facility] Work Phone: Comment on above: Expected: 11/27/2022, Expires: 3 Start: 11-26-2022 End: 01-26-2023 Hemoglobin A1c in Blood [facility] Work Phone: Comment on above: Expected: 11/26/2022, Expires: 3 Start: 11-26-2022 End: 01-26-2023 VITAMIN B1 (THIAMINE), WHOLE BLOOD [facility] Work Phone: Comment on above: Expected: 11/26/2022, Expires: 3 Start: 11-26-2022 End: 01-26-2023 VITAMIN B5(PANTOTHENIC AID) BIOASSAY [facility] Work Phone: Comment on above: Expected: 11/26/2022, Expires: 3 Start: 11-25-2022 End: 01-25-2023 Cobalamin (Vitamin B12) [Mass/volume] in Serum or Plasma [facility] Work Phone: Comment on above: Expected: 11/25/2022, Expires: 3 Start: 11-25-2022 End: 01-25-2023 Renal function 2000 panel - Serum or Plasma [facility] Work Phone: Comment on above: Expected: 11/25/2022, Expires: 3 Start: 11-11-2022 End: 01-11-2023 Basic metabolic 2000 panel - Serum or Plasma [facility] Work Phone: Comment on above: Expected: 11/11/2022, Expires: 3 Start: 11-11-2022 End: 11-11-2022 Patient encounter procedure 11/11/2022 Office Visit Ophthalmology Deny Dumont MD [address] [place] [address] [facility] Ophthalmology (Eye) Residents Start: 11-07-2022 Patient discharge [facility] Start: 11-06-2022 End: 11-06-2022 Removal of urinary catheter [facility] Start: 11-06-2022 Care planning and problem solving actions [facility] Start: 11-06-2022 [facility] Start: 11-05-2022 Referral to occupational therapist [facility] Start: 11-05-2022 Referral to service [facility] Start: 11-04-2022 Care planning and problem solving actions [facility] Start: 11-04-2022 End: 11-04-2022 Blood culture [facility] Start: 11-04-2022 Referral to director of medicare [facility] Start: 11-04-2022 [facility] Start: 11-04-2022 [facility] Start: 11-03-2022 Care planning and problem solving actions [facility] Start: 11-03-2022 Oxygen therapy [facility] Start: 11-02-2022 Following clinical pathway protocol [facility] Start: 11-02-2022 Physiotherapy of chest [facility] Start: 11-02-2022 Consultation [facility] Start: 11-02-2022 Continuous pulse oximetry [facility] Start: 11-02-2022 Dual pressure spontaneous ventilation support [facility] Start: 11-02-2022 Inhalation therapy procedure [facility] Start: 11-01-2022 Admission procedure [facility] Start: 10-25-2022 End: 10-26-2023 Phenylephrine 0.25% Topical (Preparation H) 1 application Ointment Every 8 Hours ; OintmentDOSE = 1 application(s) Topical Every 8 Hours, PRN HemorrhoidsApply to Buttock Start: 25-Oct-2022 End: 25-Oct-2023 Ordered: 25-Oct-2022 Justyn Richter Intent [facility] Start: 10-24-2022 End: 10-25-2023 [facility] Start: 10-19-2022 Blood culture [facility] Start: 08-22-2022 [facility] Start: 07-18-2022 End: 09-17-2022 [place] BY IFA SCREEN [facility] Work Phone: Comment on above: Expected: 07/18/2022, Expires: 2 Start: 07-18-2022 End: 09-17-2022 C reactive protein [Mass/volume] in Serum or Plasma [facility] Work Phone: Comment on above: Expected: 07/18/2022, Expires: 2 Start: 07-18-2022 End: 09-17-2022 Erythrocyte sedimentation rate [facility] Work Phone: Comment on above: Expected: 07/18/2022, Expires: 2 Start: 07-18-2022 End: 09-17-2022 Rheumatoid factor [Units/volume] in Serum or Plasma [facility] Work Phone: Comment on above: Expected: 07/18/2022, Expires: 2 Start: 06-28-2022 Influenza vaccination Influenza Vaccine (#1) [facility] Start: 05-29-2022 Influenza vaccination [facility] Start: 04-17-2022 End: 06-17-2022 25-hydroxyvitamin D3 [Mass/volume] in Serum or Plasma [facility] Work Phone: Comment on above: Expected: 04/17/2022, Expires: 2 Start: 04-17-2022 End: 06-17-2022 CBC W Auto Differential panel - Blood [facility] Work Phone: Comment on above: Expected: 04/17/2022, Expires: 2 Start: 04-17-2022 End: 06-17-2022 Comprehensive metabolic 2000 panel - Serum or Plasma [facility] Work Phone: Comment on above: Expected: 04/17/2022, Expires: 2 Start: 04-17-2022 End: 06-17-2022 Ferritin [Mass/volume] in Serum or Plasma [facility] Work Phone: Comment on above: Expected: 04/17/2022, Expires: 2 Start: 04-17-2022 End: 06-17-2022 Iron and Iron binding capacity panel - Serum or Plasma [facility] Work Phone: Comment on above: Expected: 04/17/2022, Expires: 2 Start: 04-17-2022 End: 06-17-2022 Lipid 1996 panel - Serum or Plasma [facility] Work Phone: Comment on above: Expected: 04/17/2022, Expires: 2 Start: 04-17-2022 End: 06-17-2022 Thyrotropin [Units/volume] in Serum or Plasma [facility] Work Phone: Comment on above: Expected: 04/17/2022, Expires: 2 Start: 03-26-2022 ANNUAL PCP TEAM CHRONIC DISEASE VISIT ANNUAL PCP TEAM CHRONIC DISEASE VISIT [facility] Start: 03-26-2022 BP CONTROLLED (<130/80) BP CONTROLLED (<130/80) [facility] Start: 03-03-2022 [facility] Work Phone: Start: 02-11-2022 End: 04-13-2022 Basic metabolic 2000 panel - Serum or Plasma BASIC METABOLIC PNL Lab Routine Essential hypertension, benign Expected: 02/11/2022, Expires: 04/13/2022 [facility] Work Phone: Comment on above: Expected: 02/11/2022, Expires: 2 Start: 02-11-2022 End: 04-13-2022 SCHEDULE LAB TESTING SCHEDULE LAB TESTING Lab Routine Expected: 02/11/2022, Expires: 04/13/2022 [facility] Work Phone: Comment on above: Expected: 02/11/2022, Expires: 2 Start: 09-23-2021 COVID-19 Vaccine (3 - Booster for Pfizer series) COVID-19 Vaccine (3 - Booster for Pfizer series) [facility] Start: 09-23-2021 COVID-19 VACCINE (3 - Pfizer series) COVID-19 VACCINE (3 - Pfizer series) [facility] Start: 08-28-2021 Mammography [facility] Start: 08-28-2021 Screening for malignant neoplasm of breast Mammogram Screening [facility] Start: 07-09-2021 COVID-19 VACCINE (2 - Pfizer 3-dose series) COVID-19 VACCINE (2 - Pfizer 3-dose series) [facility] Start: 07-09-2021 COVID-19 VACCINE (2 - Pfizer series) COVID-19 VACCINE (2 - Pfizer series) [facility] Start: 07-05-2020 PAP TESTING PAP TESTING [facility] Start: 07-05-2020 Screening for malignant neoplasm of cervix [facility] Start: 12-20-2015 FECAL OCCULT BLOOD FECAL OCCULT BLOOD [facility] Start: 12-20-2015 Screening for malignant neoplasm of colon Fecal Occult Blood [facility] Start: 2013 Measurement of occult blood in single stool specimen FIT [facility] Start: 2013 Screening for malignant neoplasm of colon CRC Screening [facility] Start: 2013 Shingles (RZV) Vaccine (1 of 2) Shingles (RZV) Vaccine (1 of 2) [facility] Start: 2013 SHINGRIX VACCINE (1 of 2) SHINGRIX VACCINE (1 of 2) [facility] Start: 2008 Cholesterol [Mass/volume] in Serum or Plasma Cholesterol [facility] Start: 2008 COLOGUARD (FIT-DNA) COLOGUARD (FIT-DNA) [facility] Start: [address] COLONOGRAPHY [facility] Start: 2008 Screening for malignant neoplasm of colon [facility] Start: 2008 SIGMOIDOSCOPY SIGMOIDOSCOPY [facility] Start: 2003 Screening for malignant neoplasm of breast Mammography [facility] Start: 1993 Zoledronic acid therapy ALPHA-1 ANTITRYPSIN DEFICIENCY SCREENING [facility] Start: 1984 Screening for malignant neoplasm of cervix Pap Smear [facility] Start: 1981 Hepatitis C screening [facility]atitis [facility] Start: 1981 HIV SCREENING HIV SCREENING [facility] Start: 1981 HIV screening HIV Screening [facility] Start: 1981 Tetanus + diphtheria + acellular pertussis vaccine (product) Tdap Booster [facility] Start: 1978 HIV screening HIV Test [facility] Start: 1963 Abdominal aortic aneurysm screening Pulmonary Function Testing [facility] Start: 1963 Screening for malignant neoplasm of colon Colonoscopy [facility] Anion gap in Serum o r Plasma [facility] Anion gap measurement [facility] Bacteria identified in Blood by Culture Blood Culture [facility] Bacteria identified in Blood by Culture Blood Culture [facility] Bacteria identified in Sputum by Respiratory culture [facility] BUN/Creatinine ratio [facility] BUN/Creatinine ratio [facility] Calcium [Mass/volume ] in Serum or Plasma [facility] Calcium [Mass/volume ] in Serum or Plasma [facility] Carbon dioxide, tota l [Moles/volume] in Central venous blood [facility] Carbon dioxide, tota l [Moles/volume] in Serum or Plasma [facility] Chloride [Moles/volu me] in Serum or Plasma [facility] Creatinine [Mass/vol ume] in Serum or Plasma [facility] Creatinine [Moles/volume] in Serum or Plasma [facility] End: 09-14-2025 CT Abdomen and Pelvis W contrast IV CT ABD/PEL W IVCON Radiology Routine Alcoholic hepatitis without ascites Acute pancreatitis, unspecified complication status, unspecified pancreatitis type Upper abdominal pain Nausea Elevated lipase Generalized abdominal tenderness without rebound tenderness 1 Occurrences starting 08/15/2024 until 09/14/2025 [facility] Work Phone: Comment on above: 1 Occurrences starting 08/15/2024 until 09/14/2025 CT Abdomen and Pelvi s W contrast IV CT ABD/PEL W IVCON Radiology Routine Alcoholic hepatitis without ascites Acute pancreatitis, unspecified complication status, unspecified pancreatitis type Upper abdominal pain Nausea Elevated lipase Generalized abdominal tenderness without rebound tenderness 08/23/2024 9:53 AM EST [facility] Work Phone: CT Chest [facility] CT Chest [facility] End: 06-03-2025 DBT Breast - bilateral screening SIMI SCREENING W CYNTHIA Radiology Routine Encounter for screening mammogram for breast cancer 1 Occurrences starting 05/04/2024 until 06/03/2025 [facility] Work Phone: Comment on above: 1 Occurrences starting 05/04/2024 until 06/03/2025 End: 11-02-2025 EGD - THERAPEUTIC, EUS, OR TUBE INTERVENTIONS EGD - THERAPEUTIC, EUS, OR TUBE INTERVENTIONS Endoscopy Routine Chronic recurrent pancreatitis (HCC) 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 chronic pancreatitis (HCC) Chronic RUQ pain 1 Occurrences starting 11/02/2024 until 11/02/2025 [facility] Work Phone: Comment on above: 1 Occurrences starting 11/02/2024 until 11/02/2025 End: 11-27-2023 EMG(NEURO/NI) EMG(NEURO/NI) EMG Routine Numbness and tingling of both lower extremities Neuropathy Numbness and tingling of both feet 1 Occurrences starting 11/26/2022 until 11/27/2023 [facility] Work Phone: Comment on above: 1 Occurrences starting 11/26/2022 until 11/27/2023 End: 12-01-2025 ERCP ERCP Endoscopy Routine Other chronic pancreatitis (HCC) 1 Occurrences starting 12/01/2024 until 12/01/2025 [facility] Work Phone: Comment on above: 1 Occurrences starting 12/01/2024 until 12/01/2025 End: 04-04-2026 ERCP ERCP Endoscopy Routine Chronic recurrent pancreatitis (HCC) 1 Occurrences starting 04/04/2025 until 04/04/2026 [facility] Work Phone: Comment on above: 1 Occurrences starting 04/04/2025 until 04/04/2026 Erythrocyte mean corpuscular volume determination [facility] Glucose [Mass/volume ] in Serum or Plasma [facility] Glucose [Mass/volume ] in Serum or Plasma [facility] Hematocrit [Volume Fraction] of Blood [facility] Hemoglobin [Mass/vol ume] in Blood [facility] Legionella pneumophi la Ag [Presence] in Urine [facility] Leukocytes [#/volume ] in Blood [facility] End: 07-02-2024 SIMI SCREENING SIMI SCREENING Radiology Routine Encounter for screening mammogram for breast cancer 1 Occurrences starting 06/03/2023 until 07/02/2024 [facility] Work Phone: Comment on above: 1 Occurrences starting 06/03/2023 until 07/02/2024 Mean corpuscular hemoglobin concentration determination [facility] Mean corpuscular hemoglobin determination [facility] Measurement of renal function [facility] Measurement of renal function [facility] Microorganism identi fied in Unspecified specimen by Culture [facility] Microscopic observat ion [Identifier] in Unspecified specimen by Gram stain [facility] Neutrophil count [facility] Neutrophil percent differential count [facility] Patient Education [facility] Work Phone: Patient referral [facility] Work Phone: Platelets [#/volume] in Blood [facility] Potassium [Moles/vol ume] in Serum or Plasma [facility] Potassium measurement [facility] End: 12-25-2023 Radex spine lumbosacral 2/3 views XR LUMBAR GENERAL 3V AP/LAT/L5-S1 Radiology Routine Numbness and tingling of both lower extremities 1 Occurrences starting 11/25/2022 until 12/25/2023 [facility] Work Phone: Comment on above: 1 Occurrences starting 11/25/2022 until 12/25/2023 Radex spine lumbosac ral 2/3 views XR LUMBAR GENERAL 3V AP/LAT/L5-S1 Radiology Routine Numbness and tingling of both lower extremities 11/25/2022 11:18 AM EST [facility] Work Phone: Red blood cell count [facility] Red cell distributio n width determination [facility] End: 07-25-2023 Screening mammography bi 2-view breast inc cad SIMI SCREENING Radiology Routine Encounter for screening mammogram for breast cancer 1 Occurrences starting 06/25/2022 until 07/25/2023 [facility] Work Phone: Comment on above: 1 Occurrences starting 06/25/2022 until 07/25/2023 Serum chloride measurement [facility] Sodium [Moles/volume ] in Serum or Plasma [facility] Sodium measurement [facility] Streptococcus pneumo niae antigen assay [facility] UA DIP, URINE (POC) UA DIP, URIN E (POC) Lab Routine Urinary incontinence, unspecified type Urinary frequency Ordered: 08/10/2024 [facility] Comment on above: Ordered: 08/10/2024 Urea nitrogen [Mass/volume] in Serum or Plasma [facility] Urea nitrogen [Mass/volume] in Serum or Plasma [facility] Urine culture [facility] End: 09-09-2025 US Abdomen RUQ US ABD RIGHT UPPER QUADRANT Radiology Routine Upper abdominal pain Nausea 1 Occurrences starting 08/10/2024 until 09/09/2025 [facility] Comment on above: 1 Occurrences starting 08/10/2024 until 09/09/2025 End: 05-17-2023 Us abdominal real time w/image limited US ABD RT UPPER QUADRANT Radiology Routine 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 chronic pancreatitis (HCC) Alcoholic hepatitis without ascites 1 Occurrences starting 04/17/2022 until 05/17/2023 [facility] Work Phone: Comment on above: 1 Occurrences starting 04/17/2022 until 05/17/2023 Us abdominal real ti me w/image limited US ABD RT UPPER QUADRANT Radiology Routine 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 chronic pancreatitis (HCC) Alcoholic hepatitis without ascites 05/02/2022 9:37 AM EDT [facility] Work Phone: End: 02-23-2025 XR Chest PA and Lateral XR CHEST 2V FRONTAL/LAT Radiology Routine Pneumonia due to infectious organism, unspecified laterality, unspecified part of lung Acute right ankle pain 1 Occurrences starting 01/25/2024 until 02/23/2025 [facility] Work Phone: Comment on above: 1 Occurrences starting 01/25/2024 until 02/23/2025 XR Chest PA and Lateral XR CHEST 2V FRONTAL/LAT Radiology Routine Pneumonia due to infectious organism, unspecified laterality, unspecified part of lung Acute right ankle pain 01/25/2024 2:13 PM EDT [facility] End: 09-09-2025 XR Chest PA and Lateral XR CHEST 2V FRONTAL/LAT Radiology Routine Shortness of breath Chronic obstructive pulmonary disease with acute exacerbation (HCC) Tobacco use disorder Pulmonary emphysema, unspecified emphysema type (HCC) 1 Occurrences starting 08/10/2024 until 09/09/2025 [facility] Comment on above: 1 Occurrences starting 08/10/2024 until 09/09/2025 XR Chest PA and Lateral XR CHEST 2V FRONTAL/LAT Radiology Routine Shortness of breath Chronic obstructive pulmonary disease with acute exacerbation (HCC) Tobacco use disorder Pulmonary emphysema, unspecified emphysema type (HCC) 08/10/2024 5:47 PM EST [facility] End: 01-18-2026 XR Chest PA and Lateral XR CHEST 2V FRONTAL/LAT Radiology Routine Chronic recurrent pancreatitis (HCC) Chronic obstructive pulmonary disease, unspecified COPD type (HCC) Hospital discharge follow-up 1 Occurrences starting 12/19/2024 until 01/18/2026 [facility] Work Phone: Comment on above: 1 Occurrences starting 12/19/2024 until 01/18/2026 XR Chest PA and Lateral XR CHEST 2V FRONTAL/LAT Radiology Routine Chronic recurrent pancreatitis (HCC) Chronic obstructive pulmonary disease, unspecified COPD type (HCC) Hospital discharge follow-up 12/19/2024 4:01 PM EDT [facility] Immunizations Immunization Date Immunization Notes Care Provider [facility] 08-05-2024 influenza, seasonal, injectable Misbah Elkins MD Work Phone: [facility] 08-05-2024 influenza virus vacc ine, unspecified formulation Herman Nevarez RN [facility] 07-18-2022 influenza, injectabl e, quadrivalent, contains preservative Soila Older REGIONAL LIAISON.RN FACULTY Work Phone: [facility] 07-18-2022 influenza, injectabl e, quadrivalent, preservative free PROTECTION ENGINEER-C SOILA EASTON Work Phone: [facility] 07-18-2022 influenza, seasonal, injectable PROTECTION ENGINEER-C SOILA OLDER Work Phone: [facility] 07-18-2022 influenza virus vacc ine, unspecified formulation Soila Easton APRN.RN FACULTY Work Phone: [facility] 06-18-2021 Covid (Pfizer) PROTECTION ENGINEER-C SOILA SCHNEIDER R Work Phone: [facility] 08-12-2020 tetanus toxoid, redu enid diphtheria toxoid, and acellular pertussis vaccine, adsorbed Víctor Mcpherson REGIONAL LIAISON.[facility] [place] Work Phone: [facility] Work Phone: 05-24-2020 influenza, injectabl e, quadrivalent, contains preservative Víctor Mcpherson REGIONAL LIAISON.[facility] [place] Work Phone: [facility] 07-26-2019 influenza, injectabl e, quadrivalent, contains preservative Víctor Mcpherson REGIONAL LIAISON.[facility] [place] Work Phone: [facility] 08-31-2018 pneumococcal polysaccharide vaccine, 23 valent Víctor Mcpherson APRN.[facility] [place] Work Phone: [facility] 08-17-2018 influenza, seasonal, injectable Víctor Mcpherson REGIONAL LIAISON.[facility] [place] Work Phone: [facility] 08-11-2018 Influenza, injectabl e, Madin [place] Canine Kidney, preservative free, quadrivalent Víctor Mcpherson REGIONAL LIAISON.[facility] [place] Work Phone: [facility] Work Phone: 07-13-2018 influenza, injectabl e, quadrivalent, preservative free PROTECTION ENGINEER-C SOILA EASTON Work Phone: [facility] 07-13-2018 influenza, seasonal, injectable PROTECTION ENGINEER-C Theron Teague PROTECTION ENGINEER Work Phone: [facility] 07-13-2018 influenza, seasonal, injectable, preservative free Víctor Mcpherson REGIONAL LIAISON.[facility] [place] Work Phone: [facility] Work Phone: 08-27-2017 pneumococcal conjuga te vaccine, 13 valent Víctor Mcpherson REGIONAL LIAISON.[facility] [place] Work Phone: [facility] 07-13-2017 influenza, injectabl e, quadrivalent, contains preservative Víctor Mcpherson REGIONAL LIAISON.[facility] Work Phone: [facility] 06-24-2016 influenza, injectabl e, quadrivalent, contains preservative Víctor Vida REGIONAL LIAISON.[facility] Work Phone: [facility] 10-28-2013 Influenza virus vaccine PROTECTION ENGINEER-C Theron Teague NP Work Phone: [facility] 10-28-2013 influenza, seasonal, injectable, preservative free Víctor Mcpherson REGIONAL LIAISON.[facility] Work Phone: [facility] Work Phone: 07-17-2012 influenza virus vacc ine, unspecified formulation Víctor Blaz REGIONAL LIAISON.[facility] Work Phone: [facility] 07-19-2011 influenza virus vacc ine, unspecified formulation Víctor Blaz REGIONAL LIAISON.[facility] Work Phone: [facility] Work Phone: 07-30-2010 influenza virus vacc ine, unspecified formulation Víctor Blarose REGIONAL LIAISON.[facility] Work Phone: [facility] 10-05-2009 pneumococcal polysaccharide vaccine, 23 valent Víctor Blaz REGIONAL LIAISON.[facility] Work Phone: [facility] Work Phone: 10-05-2009 Pneumococcal Vaccine PROTECTION ENGINEER-C Onesimo Teague NP Work Phone: [facility] Work Phone: 10-05-2009 pneumococcal vaccine , unspecified formulation PROTECTION ENGINEER-C SOILA EASTON Work Phone: [facility] 08-14-2009 novel influenza-H1N1 -09, all formulations Víctor Mcpherson REGIONAL LIAISON.[facility] Work Phone: [facility] 07-06-2009 influenza virus vacc ine, unspecified formulation Víctor Blaz REGIONAL LIAISON.[facility] [place] Work Phone: [facility] Work Phone: 03-28-2007 pneumococcal polysaccharide vaccine, 23 valent Víctor Blaz REGIONAL LIAISON.RN FACULTY, DNP Work Phone: [facility] Payers Date Payer Category Payer Self-pay 2015 Unknown [id number] 2015 Unknown [id number] 2006 Medicaid [employer] [facility] [id number] 2006-Present [phone] [address] [place] [address] Medicaid [id number] 2006 Medicaid [id number]. [id number] 1963 Unknown [id number] 2.16.840.1.202385.3.579.2.732 1963 Unknown [id number] 2.16.840.1.481620.3.579.2.73 1963 Unknown [id number] 2.16.840.1.175045.3.579.2.732 1963 Unknown [id number] 2.16.840.1.013701.3.579.2.732 1963 Unknown [id number] 2.16.840.1.661059.3.579.2.73 1963 Unknown [id number] 2.16.840.1.500490.3.579.2.732 1963 Unknown [id number] 2.16.840.1.559862.3.579.2.732 1963 Unknown [id number] 2.16.840.1.396315.3.579.2.732 1963 Unknown [id number] 2.16.840.1.045085.3.579.2.732 1963 Unknown [id number] 2.840.1.250252.3.579.2.356 1963 Unknown [id number] 2.840.1.200657.3.579.2.356 1963 Unknown [id number] 2.840.1.262691.3.579.2. 1963 Unknown [id number] 2.840.1.000441.3.579.2. 1963 Unknown [id number] 2.840.1.899361.3.579.2. 1963 Unknown [id number] 2.840.1.617608.3.579.2. 1963 Unknown [id number] 2.840.1.207766.3.579.2.356 Unknown Unknown [id number] .840.1.672259.3.579.2.462 Unknown [id number] .840.1.480376.3.579.2.462 Unknown [id number] 2.0.1.682555.3.579.2.462 Unknown [id number] .840.1.009621.3.579.2.462 Unknown [id number] .840.1.865415.3.579.2.462 Unknown [id number] .840.1.679842.3.579.2.462 Unknown [id number] .840.1.431395.3.579.2.462 Unknown [id number] 2.840.1.660725.3.579.2.462 Unknown [id number] 2.840.1.502958.3.579.2.462 Unknown [id number] 2.840.1.865456.3.579.2.462 Unknown [id number] 2.16.840.1.915529.3.579.2.462 Unknown [id number] 2.16.840.1.772599.3.579.2.462 Unknown [id number] 2.16.840.1.357538.3.579.2.462 Unknown [id number] 2.16.840.1.971901.3.579.2.462 Unknown [id number] 2.16.840.1.997739.3.579.2.462 Unknown [id number] 2.16.840.1.285648.3.579.2.462 Unknown [id number] 2.16.840.1.524135.3.579.2.462 Unknown [id number] 2.16.840.1.426162.3.579.2.462 Unknown [id number] 2.16.840.1.845992.3.579.2.462 Unknown [id number] 2.16.840.1.573306.3.579.2.462 Unknown [id number] 2.16.840.1.132747.3.579.2.462 Unknown [id number] 2.16.840.1.550525.3.579.2.462 Unknown [id number] 2.16.840.1.024778.3.579.2.462 Unknown [id number] 2.16.840.1.418639.3.579.2.462 Unknown [id number] 2.16.840.1.865729.3.579.2.462 Unknown [id number] 2.16.840.1.443665.3.579.2.462 Unknown [id number] 2.16.840.1.509445.3.579.2.462 Unknown [id number] 2.16.840.1.804939.3.579.2.462 Unknown [id number] 2.16.840.1.439044.3.579.2.462 Unknown [id number] 2.16.840.1.658093.3.579.2.462 Unknown [id number] 2.16.840.1.131048.3.579.2.462 Unknown [id number] 2.16.840.1.764799.3.579.2.462 Unknown [id number] 2.16.840.1.364557.3.579.2.462 Unknown [id number] 2.16.840.1.628227.3.579.2.462 Unknown [id number] 2.16.840.1.139830.3.579.2.462 Unknown [id number] 2.16.840.1.211889.3.579.2.462 Unknown [id number] 2.16.840.1.342785.3.579.2.462 Social History Date Type Detail Facility Start: 10-19-1992 End: 12-01-2024 Tobacco smoking status AZIS Smokes tobacco daily [facility] Start: 10-19-1992 End: 10-19-2022 History of tobacco use Cigarette Smoker [facility] Start: 07-05-2019 End: 03-30-2023 Cigarettes smoked current (pack per day) - Reported 0.5 [facility] Start: 07-05-2019 End: 12-01-2024 Tobacco use and exposure Smokeless tobacco non-user [facility] Start: 07-18-2021 End: 04-10-2025 Alcohol intake Ex-drinker (finding) [facility] Start: 03-26-2021 History SDOH Alcohol Comment Alcoholic - November 2020 - last drink [facility] Start: 1965 Sex Assigned At Not on file [facility] Start: 03-03-2022 End: 01-19-2024 Tobacco smoking status [facility] Unknown if ever smoked [facility] Start: [facility] Start: 01-22-2021 Marijuana [facility] Start: 02-01-2019 [facility] Start: 01-22-2021 Cigarettes [facility] Start: 1965 Sex Assigned At Female [facility] Start: 03-11-2022 End: 05-27-2022 Exposure to SARS-CoV-2 (event) Not sure [facility] Start: 10-21-2022 Tobacco use and exposure User of smokeless tobacco [facility] Start: 11-11-2022 End: 04-10-2025 Tobacco smoking status NHIS Ex-smoker [facility] Work Phone: Start: 10-19-1992 End: 10-19-2022 History of tobacco use Current smoker [facility] Work Phone: Start: 03-30-2023 End: 04-15-2023 Tobacco use panel [facility] Adult Depression Screening Assessment 4 [facility] Start: 12-04-2024 End: 12-06-2024 Tobacco smoking status AZIS Current Heavy tobacco smoker [facility] Start: 12-04-2024 End: 01-01-2025 Sex Female (finding) [facility] Start: 12-24-2024 End: 02-26-2025 Tobacco smoking status AZIS Current some day smoker [facility] Has the [employer], oil, or water [employer] threatened to shut off services in your home in past 12Mo No [facility] (I/We) worried tara friend (my/our) food would run out before (I/we) got money to buy more. Never true [facility] Medical Equipment Procedure Code Equipment Code Equipment Origin al Text Equipment Identifier Dates Total cholecystectomy with exploration of common bile duct [id number] FDA Start: 06-14-2021 Stent Zimmon 7fr Duodenal Pigtail Curve Purple Polyethylene 11cm Pancreatic - [id number] Start: 03-10-2025 Goals Date Patient Goal Desired Activity /State Functional Status Date Assessment Result Facility 03-23-2025 Are you deaf, or do you have serious difficulty hearing No 03/23/2025 5:10 PM Kerri Hardin RN No [facility] 03-23-2025 Are you blind, or do you have serious difficulty seeing, even when wearing glasses No 03/23/2025 5:10 PM Kerri Hardin RN [facility] 03-23-2025 Do you have serious difficulty walking or climbing stairs No 03/23/2025 5:10 PM Kerri Hardin RN No [facility] 03-23-2025 Do you have difficul ty dressing or bathing No 03/23/2025 5:10 PM Kerri Hardin RN No [facility] 03-23-2025 Because of a physica l, mental, or emotional condition, do you have difficulty doing errands alone such as visiting a physician's office or shopping No 03/23/2025 5:10 PM Kerri Hardin RN No [facility] 03-15-2025 Functional status Bedrest [facility] Work Phone: 12-12-2024 Functional status Ambulates;Bath room [facility] Work Phone: 12-08-2024 Functional status [facility] Work Phone: 01-05-2024 Functional status [facility] Work Phone: 11-07-2022 Functional status [facility] Work Phone: 02-02-2015 Are you deaf, or do you have serious difficulty hearing No 02/02/2015 9:44 AM Alondra Mackenzie RN No [facility] 02-02-2015 Are you blind, or do you have serious difficulty seeing, even when wearing glasses No 02/02/2015 9:44 AM Alondra Mackenzie RN No [facility] 02-02-2015 Do you have serious difficulty walking or climbing stairs No 02/02/2015 9:44 AM Alondra Mackenzie RN No [facility] 02-02-2015 Do you have difficul ty dressing or bathing No 02/02/2015 9:44 AM Alondra Mackenzie RN No [facility] 02-02-2015 Because of a physica l, mental, or emotional condition, do you have difficulty doing errands alone such as visiting a physician's office or shopping No 02/02/2015 9:44 AM Alondra Mackenzie RN No [facility] Functional observable [facility] Mental Status Date Assessment Result Facility 03-23-2025 Because of a physica l, mental, or emotional condition, do you have serious difficulty concentrating, remembering, or making decisions No 03/23/2025 5:10 PM EDT Kerri Aaron, RN No [facility] 03-15-2025 Cognitive function Unable to Comprehend [facility] Work Phone: 03-15-2025 Cognitive function Voice/Name [facility] Work Phone: 12-12-2024 Cognitive function Voice/Name [facility] Work Phone: 12-11-2024 Cognitive function Appropriate;Cooperativ e [facility] Work Phone: 12-08-2024 Cognitive function Voice/Name [facility] Work Phone: 01-19-2024 Cognitive function Level Of Cons ciousness Awake;Alert;Appropriate [facility] Work Phone: 01-05-2024 Cognitive function Voice/Name [facility] Work Phone: 06-02-2023 Cognitive function Level Of Cons ciousness Awake;Alert;Appropriate;Fol lows Commands [facility] Work Phone: 11-07-2022 Cognitive function Voice/Name [facility] Work Phone: 10-24-2022 Cognitive functi ons [id number] [facility] 02-02-2015 Because of a physica l, mental, or emotional condition, do you have serious difficulty concentrating, remembering, or making decisions No 02/02/2015 9:44 AM EDT Alondra Otto RN No [facility] Clinical Notes 01-10-2021 to 04-11-2025 Telephone Encounter - Yuly [place] - 04/11/2025 9:33 AM EDTTelephone Encounter - Yuly [place] - 04/11/2025 9:33 AM Nicolas Richard APRN.NATIONAL ACCOUNT MANAGER - 04/10/2025 1:55 PM EDT Note Date & Type Note Facility 04-11-2025 Telephone encounter Note Transitional Care Management (TCM) [facility] Provider Action / FYI: na SUMMARY: Outreach type: INITIAL OUTREACH Discharge Network Status: In-Network Discharge Source of Patient: [facility] TCM Discharge Report Patient discharged from [facility] on 03.23.25. Admitted for acute on chronic respiratory failure with hypoxia. . . . . Contact made with patient: No - 2nd unsuccessful attempt - end outreach and close encounter. Yuly France April 11, 2025 9:34 AM [facility] 04-11-2025 Miscellaneous Notes Transitional Care Management (TCM) [facility] Provider Action / FYI: na SUMMARY: Outreach type: INITIAL OUTREACH Discharge Network Status: In-Network Discharge Source of Patient: [facility] TCM Discharge Report Patient discharged from [facility] on 03.23.25. Admitted for acute on chronic respiratory failure with hypoxia. . . . . Contact made with patient: No - 2nd unsuccessful attempt - end outreach and close encounter. Yuly France April 11, 2025 9:34 AM documented in this encounter [facility] 04-10-2025 Note HNO ID: [id number] Author: NICOLAS GREER APRN.NATIONAL ACCOUNT MANAGER Service: ? Author Type: Nurse Specialist Type: Progress Notes Filed: 04/10/2025 14:31 Note Text: Subjective Patient ID: Gracie is a 59 year old female who presents for Hospital F/U. HPI She was admitted to the hospital on March 15 through March 23 for acute on chronic hypoxic respiratory failure. Noted to have mild protein calorie malnutrition during admission. Discharge summary excerpted:HOSPITAL COURSE: 59-year-old female with past medical history of hypertension, hyperlipidemia, alcohol abuse, anxiety, COPD with chronic hypoxic respiratory failure on 5 L at baseline, chronic pancreatitis status post ERCP with stent placement 03/10. Patient was transferred from [facility]. There she was found to have acute pancreatitis. She had a stent placed in the body of the pancreas however on CT scan at the other hospital she had new peripancreatic inflammation. She was also experiencing acute hypoxic respiratory failure and was emergently intubated and transferred to [facility] ICU. She required vasopressor support due to septic shock and was noted to have bilateral pneumonia. She was extubated and transferred to the floors. She remained hemodynamically stable off pressors but had increasing oxygen requirements. She was followed by pulmonology and treated for bilateral pneumonia and COPD exacerbation and was subsequently able to wean oxygen back to her baseline of 5 L. She was cleared for discharge by pulmonology. 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 Pancreatic Stent Placement: - Stent placed by Dr. Garrido at [facility]. - Persistent abdominal pain radiating to the back, unchanged since hospital discharge. - Pain described as severe, causing sleep disturbances; currently managed with extra strength Tylenol, providing ~6 hours of relief. - Follow-up with Juan Canas scheduled for 04/17. - Denies nausea or emesis. - Bowel movements are generally solid with a normal diet; occasional loose stools attributed to gabapentin and coffee consumption. - No current alcohol consumption; quit drinking and smoking to avoid pancreatic irritation. Respiratory Failure: - Respiratory failure following stent placement led to hospitalization at [facility], then transferred to [facility] due to fluid overload and septic shock. - Required mechanical ventilation; diagnosed with bilateral pneumonia. - Follow-up with Ani Ctoo, pulmonology, today. She noted mild wheezing in the right lung; no current infection or pneumonia. - On 5L O2 continuously; advised by Dr. Coto to reduce to 3L if comfortable. - Albuterol prescription recently filled. - Reports she was unable to connect to a virtual visit on 04/13. Notes no alcohol or smoking for several months. Objective BP 102/82 Pulse 100 Resp 16 Wt 56 kg (123 lb 7.3 oz) LMP 05/29/2010 SpO2 99% BMI 20.54 kg/m? Physical Exam Latest Ref Rng 03/16/2025 03/18/2025 03/19/2025 03/20/2025 03/21/2025 03/22/2025 03/23/2025 Campylobacter species (C. jejuni/C. coli/C. upsaliensis) DNA Not Detected Not detected Plesiomonas shigelloides DNA Not Detected Not detected Salmonella species DNA Not Detected Not detected Vibrio species DNA Not Detected Not detected Vibrio cholerae DNA Not Detected Not detected Yersinia enterocolitica DNA Not Detected Not detected Enteroaggregative E. coli (EAEC) DNA Not Detected Not detected Enteropathogenic E. coli (EPEC) DNA Not detected Not detected Enterotoxigenic E. coli (ETEC) DNA Not Detected Not detected Shiga-like toxin producing E. coli (STEC) DNA Not Detected Not detected E. coli O157 DNA Not detected Not applicable Shigella/Enteroinvasive E. coli (EIEC) DNA Not Detected Not detected Adenovirus F 40/41 DNA Not Detected Not detected Astrovirus RNA Not Detected Not detected Norovirus GI/GII RNA Not Detected Detected ! Rotavirus A RNA Not Detected Not detected Sapovirus (Genogroups I, II, IV, V) RNA Not Detected Not detected Cryptosporidium DNA Not Detected Not detected Cyclospora cayetanensis DNA Not Detected Not detected Entamoeba histolytica DNA Not Detected Not detected Giardia lamblia DNA Not Detected Not detected pH, Venous 7.32 - 7.42 7.37 pCO2, Venous 42 - 55 mmHg 47 pO2, Venous 35 - 45 mmHg 33 (L) Base Excess, Venous 0 - 2 mmol/L 1 Bicarbonate, Venous 24 - 28 mmol/L 26 Oxyhemoglobin, Venous 4 - 98 % 60 Carboxyhemoglobin, Venous 0.0 - 2.0 % 1.0 Methemoglobin, Venous 0.0 - 1.5 % 0.1 Sodium, Whole Blood 136 - 144 mmol/L 139 135 (L) Potassium, Whole Blood 2.5 - 6.0 mmol/L 3.5 4.4 Ionized Calcium 1.08 - 1.30 mmol/L 1.14 1.20 1.25 Glucose, Whole Blood 60 - 105 mg/dL 190 (H) 155 (H) Lactate 0.5 - 2.2 mmol/L 2.5 (H) 0.8 Hemoglobin Total, Whole Blood 11.5 - 15.5 g/dL 11.5 12.5 Temperature, Body C 38.3 37.0 O2 Thera (more content not included)... [facility] 04-10-2025 History of Presen t illness Narrative Subjective Patient ID: Gracie is a 59 year old female who presents for Hospital F/U. HPI She was admitted to the hospital on March 15 through March 23 for acute on chronic hypoxic respiratory failure. Noted to have mild protein calorie malnutrition during admission. Discharge summary excerpted:HOSPITAL COURSE: 59-year-old female with past medical history of hypertension, hyperlipidemia, alcohol abuse, anxiety, COPD with chronic hypoxic respiratory failure on 5 L at baseline, chronic pancreatitis status post ERCP with stent placement 03/10. Patient was transferred from [facility]. There she was found to have acute pancreatitis. She had a stent placed in the body of the pancreas however on CT scan at the other hospital she had new peripancreatic inflammation. She was also experiencing acute hypoxic respiratory failure and was emergently intubated and transferred to [facility] ICU. She required vasopressor support due to septic shock and was noted to have bilateral pneumonia. She was extubated and transferred to the floors. She remained hemodynamically stable off pressors but had increasing oxygen requirements. She was followed by pulmonology and treated for bilateral pneumonia and COPD exacerbation and was subsequently able to wean oxygen back to her baseline of 5 L. She was cleared for discharge by pulmonology. 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 Pancreatic Stent Placement: - Stent placed by Dr. Garrido at [facility]. - Persistent abdominal pain radiating to the back, unchanged since hospital discharge. - Pain described as severe, causing sleep disturbances; currently managed with extra strength Tylenol, providing ~6 hours of relief. - Follow-up with Juan Canas scheduled for 04/17. - Denies nausea or emesis. - Bowel movements are generally solid with a normal diet; occasional loose stools attributed to gabapentin and coffee consumption. - No current alcohol consumption; quit drinking and smoking to avoid pancreatic irritation. Respiratory Failure: - Respiratory failure following stent placement led to hospitalization at [facility], then transferred to [facility] due to fluid overload and septic shock. - Required mechanical ventilation; diagnosed with bilateral pneumonia. - Follow-up with Ani Coto, pulmonology, today. She noted mild wheezing in the right lung; no current infection or pneumonia. - On 5L O2 continuously; advised by Dr. Coto to reduce to 3L if comfortable. - Albuterol prescription recently filled. - Reports she was unable to connect to a virtual visit on 04/13. Notes no alcohol or smoking for several months. Objective BP 102/82 Pulse 100 Resp 16 Wt 56 kg (123 lb 7.3 oz) LMP 05/29/2010 SpO2 99% BMI 20.54 kg/m Physical Exam Latest Ref Rng 03/16/2025 03/18/2025 03/19/2025 03/20/2025 03/21/2025 03/22/2025 03/23/2025 Campylobacter species (C. jejuni/C. coli/C. upsaliensis) DNA Not Detected Not detected Plesiomonas shigelloides DNA Not Detected Not detected Salmonella species DNA Not Detected Not detected Vibrio species DNA Not Detected Not detected Vibrio cholerae DNA Not Detected Not detected Yersinia enterocolitica DNA Not Detected Not detected Enteroaggregative E. coli (EAEC) DNA Not Detected Not detected Enteropathogenic E. coli (EPEC) DNA Not detected Not detected Enterotoxigenic E. coli (ETEC) DNA Not Detected Not detected Shiga-like toxin producing E. coli (STEC) DNA Not Detected Not detected E. coli O157 DNA Not detected Not applicable Shigella/Enteroinvasive E. coli (EIEC) DNA Not Detected Not detected Adenovirus F 40/41 DNA Not Detected Not detected Astrovirus RNA Not Detected Not detected Norovirus GI/GII RNA Not Detected Detected ! Rotavirus A RNA Not Detected Not detected Sapovirus (Genogroups I, II, IV, V) RNA Not Detected Not detected Cryptosporidium DNA Not Detected Not detected Cyclospora cayetanensis DNA Not Detected Not detected Entamoeba histolytica DNA Not Detected Not detected Giardia lamblia DNA Not Detected Not detected pH, Venous 7.32 - 7.42 7.37 pCO2, Venous 42 - 55 mmHg 47 pO2, Venous 35 - 45 mmHg 33 (L) Base Excess, Venous 0 - 2 mmol/L 1 Bicarbonate, Venous 24 - 28 mmol/L 26 Oxyhemoglobin, Venous 4 - 98 % 60 Carboxyhemoglobin, Venous 0.0 - 2.0 % 1.0 Methemoglobin, Venous 0.0 - 1.5 % 0.1 Sodium, Whole Blood 136 - 144 mmol/L 139 135 (L) Potassium, Whole Blood 2.5 - 6.0 mmol/L 3.5 4.4 Ionized Calcium 1.08 - 1.30 mmol/L 1.14 1.20 1.25 Glucose, Whole Blood 60 - 105 mg/dL 190 (H) 155 (H) Lactate 0.5 - 2.2 mmol/L 2.5 (H) 0.8 Hemoglobin Total, Whole Blood 11.5 - 15.5 g/dL 11.5 12.5 Temperature, Body C 38.3 37.0 O2 Therapy VENT=Ventilator NC Humid = Nasal Cannula-Humidified (7-15 LPM) SARS-CoV-2 (Agent of COVID-19) RNA See comment Not detected SARS-CoV-2 (Agent of COVID-19) RNA See comment Not detected Influenza A RNA Not Detected Not detected Influenza A RNA Not detected Not detected Influenza B RNA Not Detected Not detected Influenza B RNA Not detected Not detected Respiratory syncytial virus (RSV) RNA Not Detected Not detected Respiratory syncytial virus (RSV) RNA Not detected Not detected Human metapneumovirus (hMPV) RNA Not detected Not detected Human rhinovirus/enterovirus RNA Not detected Not detected Adenovirus DNA Not detected Not detected Parainfluenza 1 RNA Not detected Not detected Parainfluenza 2 RNA Not detected Not detected Parainfluenza 3 RNA Not detected Not detected Parainfluenza 4 RNA Not detected Not detected Coronavirus 229E RNA Not detected Not detected Coronavirus OC43 RNA Not detected Not detected Coronavirus NL63 RNA Not detected Not detected Coronavirus HKU1 RNA Not detected Not detected Chlamydia pneumoniae DNA Not detected Not detected Mycoplasma pneumoniae DNA Not detected Not detected Bordetella pertussis DNA Not detected Not detected Bordetella parapertussis DNA Not detected Not detected pH, Arterial 7.35 - 7.45 7.47 (H) pCO2, Arterial 36 - 46 mm Hg 38 pO2, Arterial 85 - 95 mm Hg 68 (L) Bicarbonate, Arterial 22 - 26 mmol/L 27 (H) Base Excess, Arterial 0 - 2 mmol/L 3 (H) Oxyhemoglobin, Arterial 95 - 98 % 93 (L) Carboxyhemoglobin, Arterial 0.0 - 2.0 % 0.0 Methemoglobin, Arterial 0.0 - 1.5 % 0.2 Liters Liters/min 12 Color Yellow Colorless Clarity Clear Clear Glucose, Urine Negative 1+ ! Bilirubin, Urine Negative Negative Ketones, Urine Negative 1+ ! Specific [place], Ur 1.005 - 1.030 1.026 Hemoglobin/Blood,Ur Negative 1+ ! pH, Urine 5.0 - 8.0 6.0 Protein, Urine Negative Negative Urobilinogen Negative Negative Nitrites Negative Negative Leukest Negative Negative WBC, Urine 0-5 /HPF 0-5 /HPF RBC, Urine 0-3 /HPF 0-3 /HPF Bacteria None Seen /HPF Rare ! Epithelial Cells /HPF None Seen WBC 3.70 - 11.00 k/uL 17.37 (H) 14.59 (H) 18.58 (H) 16.40 (H) 17.90 (H) 16.85 (H) RBC 3.90 - 5.20 m/uL 3.45 (L) 3.81 (L) 4.38 3.84 (L) 3.86 (L) 3.48 (L) Hemoglobin 11.5 - 15.5 g/dL 9.2 (L) 10.1 (L) 11.7 10.0 (L) 10.2 (L) 9.3 (L) Hematocrit 36.0 - 46.0 % 29.5 (L) 33.0 (L) 37.7 33.7 (L) 33.7 (L) 30.7 (L) MCV 80.0 - 100.0 fL 85.5 86.6 86.1 87.8 87.3 88.2 MCH 26.0 - 34.0 pg 26.7 26.5 26.7 26.0 26.4 26.7 MCHC 30.5 - 36.0 g/dL 31.2 30.6 31.0 29.7 (L) 30.3 (L) 30.3 (L) RDW-CV 11.5 - 15.0 % 15.1 (H) 15.1 (H) 15.4 (H) 15.3 (H) 15.4 (H) 15.8 (H) Platelet Count 150 - 400 k/uL 332 397 447 (H) 380 411 (H) 373 MPV 9.0 - 12.7 fL 9.8 9.9 10.0 9.7 10.2 10.4 Absolute nRBC <0.01 k/uL <0.01 <0.01 <0.01 <0.01 <0.01 <0.01 Glucose 70 - 100 mg/dL 103 (H) 102 (H) 135 (H) 105 (H) 102 (H) 109 (H) BUN 7 - 26 mg/dL 10 10 15 17 12 15 Creatinine 0.51 - 0.95 mg/dL 0.52 0.57 0.83 1.03 (H) 0.77 0.89 Sodium 136 - 145 mmol/L 142 138 135 (L) 137 137 137 Potassium 3.5 - 5.1 mmol/L 3.5 4.4 4.2 4.4 4.9 4.9 Chloride 98 - 107 mmol/L 101 100 95 (L) 98 99 101 CO2 21 - 32 mmol/L 31 28 29 31 29 29 Anion Gap 5 - 16 mmol/L 10 10 11 8 9 7 Calcium 8.5 - 10.5 mg/dL 9.1 9.4 9.9 9.5 9.6 9.2 eGFR >=60 mL/min/1.73m 106 104 80 62 88 74 Culture Moderate Streptococcus pneumoniae ! Culture Rare Staphylococcus aureus ! Culture Rare Streptococcus agalactiae (group b streptococcus) ! Culture No growth 5 days Smear Result Many Polymorphonuclear leukocytes ! Smear Result Few Epithelial cells ! Smear Result Many Gram negative coccobacilli ! Smear Result Few Gram positive cocci ! Iron 50 - 170 ug/dL 16 (L) TIBC 221 - 481 ug/dL 203 (L) Transferrin Saturation 22.0 - 44.0 % 7.9 (L) Normalized Calcium 1.08 - 1.30 mmol/L 1.22 Staphylococcus aureus DNA Not Detected Methicillin-SUSCEPTIBLE Staphylococcus aureus Detected ! Methicillin-SUSCEPTIBLE Staphylococcus aureus Detected ! Legionella Urine Ag Negative Negative Test Result Negative Negative for Streptococcus pneumoniae antigen. Magnesium 1.6 - 2.6 mg/dL 1.6 1.8 2.1 2.3 1.9 1.8 Phosphorus 2.5 - 4.9 mg/dL 3.8 Ferritin 8.0 - 307.0 ng/mL 203.9 C. difficile PCR Negative for C. difficile toxin by PCR Negative for C. difficile toxin by PCR NT Pro BNP <125 pg/mL 3,517 (H) 1,416 (H) 1,171 (H) Procalcitonin 0.00 - 0.50 ng/mL 1.51 (H) TROPONIN I HIGH SENSITIVITY 0.0 - 34.0 pg/mL 7.4 1. Hospital discharge follow-up (Z09) 2. Acute respiratory failure with hypoxia (HCC) (J96.01) 3. Pneumonia of both lungs due to infectious organism, unspecified part of lung (J18.9) - Recent hospitalization for acute respiratory failure secondary to pneumonia; required mechanical ventilation. - Follow-up with parks worker Dr. Ani Post today; noted mild wheezing in the right lung, but no evidence of active infection. - Recent chest X-ray post-discharge showed resolution of pneumonia. - Currently on 5L O2 via nasal cannula; advised by Dr. Post to reduce to 3L as tolerated. - Continue current respiratory management; no changes in medication regimen. 4. Chronic recurrent pancreatitis (HCC) (K86.1) 5. Presence of pancreatic duct stent (Z96.89) - Recent pancreatic duct stent placement by Dr. Garrido at [facility]. - Persistent abdominal pain, described as severe and radiating to the back; no significant improvement since hospital discharge on the . - Currently managing pain with extra strength Tylenol, providing partial relief. - Prescribed Tramadol for breakthrough pain; instructed to take at bedtime and as needed during the day. Can be taken concurrently with Tylenol if necessary. - Follow-up appointment with Dr. Garrido scheduled for April 17. 6. Norovirus (A08.11) - Recent norovirus infection; symptoms have improved. - Stools are returning to baseline consistency; occasional loose stools attributed to Gabapentin and dietary factors. - No current nausea or vomiting; has Zofran available if needed. - Advised on strict hand hygiene and environmental cleaning to prevent transmission. Nicolas Greer APRN.NATIONAL ACCOUNT MANAGER Medical Decision Making: Problems: Moderate: Acute illness with systemic symptoms Data: Unique source(s) for external note(s) reviewed: 1 Unique test result(s) reviewed: 3+ Risk: Moderate: Drug management Medical Decision Making Level: 4 - Moderate documented in this encounter [facility] 04-10-2025 Telephone encounter Note Transitional Care Management (TCM) [facility] Monitoring Program Provider Action / FYI: na SUMMARY: Outreach type: INITIAL OUTREACH Discharge Network Status: In-Network Discharge Source of Patient: [facility] TCM Discharge Report Patient discharged from [facility] on 03.23.25. Admitted for acute on chronic respiratory failure with hypoxia. . . . Contact made with patient: No - next outreach attempt will be on next . Yuly France April 10, 2025 9:37 AM [facility] 04-10-2025 Miscellaneous Notes Transitional Care Management (TCM) [facility] Monitoring [facility] Provider Action / FYI: na SUMMARY: Outreach type: INITIAL OUTREACH Discharge Network Status: In-Network Discharge Source of Patient: [facility] TCM Discharge Report Patient discharged from [facility] on 03.23.25. Admitted for acute on chronic respiratory failure with hypoxia. . . . Contact made with patient: No - next outreach attempt will be on next . Yuly France April 10, 2025 9:37 AM documented in this encounter [facility] 04-04-2025 Telephone encounter Note Patient r/s to 04/10/25 with TB. Juan Borjas MA [facility] 04-04-2025 Miscellaneous Notes Patient r/s to 04/10/25 with TB. Juan Borjas MA Patient has ER F/U scheduled this afternoon at 3:40 PM with PCP. PCP will be out of the office at time of appointment & requests patient to be r/s to a later date or with Osila. Unable to reach patient. Left VM to return call to office. Please assist patient with r/s. Juan Borjas MA documented in this encounter [facility] 04-04-2025 Telephone encounter Note Transitional Care Management (TCM) [facility] Provider Action / FYI: NA SUMMARY: Outreach type: INITIAL OUTREACH Discharge Network Status: In-Network Discharge Source of Patient: [facility] TCM Discharge Report Patient discharged from [facility] on 03.23.25. Admitted for acute on chronic respiratory failure with hypoxia. . . Contact made with patient: No, for Follow-up - end outreach and close encounter. Rosy Sanonling April 04, 2025 3:15 PM [facility] 04-04-2025 Miscellaneous Notes Transitional Care Management (TCM) [facility] Monitoring [facility] Provider Action / FYI: NA SUMMARY: Outreach type: INITIAL OUTREACH Discharge Network Status: In-Network Discharge Source of Patient: [facility] TCM Discharge Report Patient discharged from [facility] on 03.23.25. Admitted for acute on chronic respiratory failure with hypoxia. . . Contact made with patient: No, for Follow-up - end outreach and close encounter. Rosy Yonny April 04, 2025 3:15 PM documented in this encounter [facility] 04-04-2025 Telephone encounter Note Patient unaware that her appt with Milly today was cancelled and she is looking to reschedule, please advise. [facility] 04-04-2025 Miscellaneous Notes Patient unaware that her appt with Milly today was cancelled and she is looking to reschedule, please advise. documented in this encounter [facility] 04-04-2025 Telephone encounter Note Patient has ER F/U scheduled this afternoon at 3:40 PM with PCP. PCP will be out of the office at time of appointment & requests patient to be r/s to a later date or with Soila. Unable to reach patient. Left VM to return call to office. Please assist patient with r/s. Juan Borjas MA [facility] 04-04-2025 Telephone encounter Note Transitional Care Management (TCM) [facility] Monitoring [facility] Provider Action / FYI: na SUMMARY: Outreach type: INITIAL OUTREACH Discharge Network Status: In-Network Discharge Source of Patient: [facility] TCM Discharge Report Patient discharged from [facility] on 03.23.25. Admitted for acute on chronic respiratory failure with hypoxia. . Contact made with patient: No - 2nd unsuccessful attempt - end outreach and close encounter. Yuly France April 04, 2025 9:47 AM [facility] 04-04-2025 Miscellaneous Notes Transitional Care Management (TCM) [facility] Monitoring Program Provider Action / FYI: na SUMMARY: Outreach type: INITIAL OUTREACH Discharge Network Status: In-Network Discharge Source of Patient: [facility] TCM Discharge Report Patient discharged from [facility] on 03.23.25. Admitted for acute on chronic respiratory failure with hypoxia. . Contact made with patient: No - 2nd unsuccessful attempt - end outreach and close encounter. Yuly France April 04, 2025 9:47 AM documented in this encounter [facility] 03-29-2025 Telephone encounter Note VM left on listed number to discuss symptoms. Juan Bloom LPN [facility] Work Phone: 03-29-2025 Miscellaneous Notes VM left on listed number to discuss symptoms. Juan Bloom LPN Patient called the office with concerns about counter server diarrhea. Patient is not sure if it is nte medication gabapetion or a virus. Patient would like a call back. Please review and advise. Dayana documented in this encounter [facility] 03-29-2025 Telephone encounter Note Patient called the office with concerns about counter server diarrhea. Patient is not sure if it is nte medication gabapetion or a virus. Patient would like a call back. Please review and advise. Dayana [facility] 03-28-2025 Telephone encounter Note Transitional Care Management (TCM) [facility] Monitoring [facility] Provider Action / FYI: N/A SUMMARY: Outreach type: INITIAL OUTREACH Discharge Network Status: In-Network Discharge Source of Patient: [facility] TCM Discharge Report Patient discharged from [facility] on 03/23/25. Admitted for acute on chronic respiratory failure with hypoxia. Contact made with patient: No - next outreach attempt will be on next business day. Herman Nevarez RN March 28, 2025 1:04 PM [facility] 03-28-2025 Miscellaneous Notes Transitional Care Management (TCM) [facility] Provider Action / FYI: N/A SUMMARY: Outreach type: INITIAL OUTREACH Discharge Network Status: In-Network Discharge Source of Patient: [facility] TCM Discharge Report Patient discharged from [facility] on 03/23/25. Admitted for acute on chronic respiratory failure with hypoxia. Contact made with patient: No - next outreach attempt will be on next business day. Herman Nevarez RN March 28, 2025 1:04 PM documented in this encounter [facility] 03-23-2025 Note HNO ID: [id number] Author: KERRI AARON RN Service: Nursing Author Type: Registered Nurse Type: Progress Notes Filed: 03/23/2025 19:49 Note Text: Patient has been discharged from the unit. IV removed with tip intact. Telemetry removed, cleaned and returned. Discharge papers and instructions given to patient. Oxygen tank provided to patient upon discharge. [facility] 03-23-2025 Note HNO ID: [id number] Author: INNA SEBASTIAN RN Service: Care Management Author Type: Registered Nurse Type: Care Mgt Progress Note Filed: 03/23/2025 15:06 Note Text: CARE MANAGEMENT DISCHARGE NOTE SERVICE DATE: March 23, 2025 SERVICE TIME: 3:03 PM Admission Date: 03/15/2025 LOS: 8 days Discharge Arrangement Discharge Arrangement: Home with Self Care Services Arranged DME Provider Name: [facility] Caregiver Assessment Caregiver is ready, willing and able to meet the patient's needs as recommended by the inter-professional team: No Caregiver needed Transportation Arrangements Transportation Arrangements: Uber/Lyft (through [employer]) Handoff Communication: Handoff to: Highway Technician Highway Technician Name/Phone: misbah elkins Additional Information: N/A Discharge Information Row Name Admission (Current) from 03/15/2025 in [facility] Durable Medical Equipment Agency [facility] Equipment Needed walker delivered to room prior to discharge Patient discharging home this date with self care. Patient originally told this CM she was going home with sister. Upon calling sister to update per patient request, sister states patient will not be going to the sister home but the patient home. Sister and family cannot transport as sister is at work and all other family does not have a car. provided patient [facility] transport number to call for transport home. Cm also called [facility] a tank to patient today for transport home. Walker delivered to room per [facility]. Patient declines need for home care. Exercises provided per therapy. Of note, patient states there is carbon monoxide possible leak in the home as patient alarm was going off. Fire department and [employer] company visiting the home at 3pm to investigate. Fire department will need to get o2 concentrator out of the home if home truly has carbon monoxide leak. Patient can stay with granddaughter if need be. Plan home. CM following for transition of care. SIGNATURE: Inna Sebastian RN PATIENT NAME: Gracie Banuelos DATE: March 23, 2025 TIME: 3:02 PM [facility] 03-23-2025 Note HNO ID: [id number] Author: AGUSTINA MURRAY CPhT Service: ? Author Type: Valve Grinder Type: Plan of Care Filed: 03/23/2025 14:12 Note Text: PHARMACY BEDSIDE DELIVERY SERVICE Patient Name: Gracie Banuelos The marked outpatient medications were Filled at: [facility] and delivered to the patient's bedside to pt Medication List CONTINUE taking these medications * albuterol 2.5 mg /3 mL (0.083 %) nebulizer solution Commonly known as: PROVENTIL Use 3 mL via nebulizer one time only for 1 dose. Use over 5-15minutes. * albuterol HFA 90 mcg/actuation inhaler Commonly known as: VENTOLIN HFA Inhale 2 puffs by mouth into the lungs four times a day as needed. delivered amLODIPine 5 mg tablet Commonly known as: NORVASC Take 1 tablet by mouth once daily. ARIPiprazole 5 mg tablet Commonly known as: ABILIFY Blood Pressure Monitor Home blood pressure monitor Cholecalciferol (Vitamin D3) 50 mcg (2,000 unit) Cap Take 1 capsule by mouth once daily. COMPOUNDED PRESCRIPTION nebulizer supplies (tubing) COMPOUNDED PRESCRIPTION Pulse Oximetry cyclobenzaprine 10 mg tablet Commonly known as: FLEXERIL Take 1 tablet by mouth twice daily as needed for muscle spasm. ferrous sulfate 140 mg (45 mg iron) Tber Commonly known as: SLOW FE Take 1 tablet by mouth twice daily with meals. gabapentin 300 mg capsule Commonly known as: NEURONTIN Take 1 capsule by mouth three times a day for 30 days. hydrOXYzine HCl 25 mg tablet Commonly known as: ATARAX Take 1 tablet by mouth three times a day as needed for itching/rash. hydrOXYzine pamoate 25 mg capsule Commonly known as: VISTARIL Take 1 capsule by mouth daily at bedtime. lisinopril 10 mg tablet Commonly known as: ZESTRIL Take 1 tablet by mouth once daily. metoprolol tartrate (short acting) 25 mg tablet Commonly known as: LOPRESSOR Take 1 tablet by mouth two times a day. mirtazapine 45 mg tablet Commonly known as: REMERON Prescribed by Dr. Talamantes. MUCINEX D MAXIMUM STRENGTH 120-1,200 mg Tab er 12 hr Generic drug: Pseudoephedrine-guaiFENesin Take 1 tablet by mouth as needed. multivitamin tablet Take 1 tablet by mouth once daily. ondansetron orally disintegrating 4 mg disintegrating tablet Commonly known as: ZOFRAN ODT Take 1 tablet by mouth every 6 hours as needed for nausea/vomiting. OXYGEN (HOME THERAPY) pantoprazole DR 40 mg tablet Commonly known as: PROTONIX Take 1 tablet by mouth once daily. simvastatin 20 mg tablet Commonly known as: ZOCOR Take 1 tablet by mouth daily at bedtime. ziprasidone 40 mg capsule Commonly known as: GEODON Take 1 capsule by mouth at bedtime as needed. * This list has 2 medication(s) that are the same as other medications prescribed for you. Read the directions carefully, and ask your doctor or other care provider to review them with you. You might also be taking other medications not listed above. If you have questions about any of your other medications, talk to the person who prescribed them or your Primary Care Provider. STOP taking these medications Benzonatate 200 mg capsule colchicine 0.6 mg tablet predniSONE 20 mg tablet Commonly known as: DELTASONE Agustina [facility] PAGER: kaur March 23, 2025 2:03 PM [facility] 03-23-2025 Note HNO ID: [id number] Author: INNA SEBASTIAN RN Service: Care Management Author Type: Registered Nurse Type: Care Mgt Progress Note Filed: 03/23/2025 08:54 Note Text: CARE MANAGEMENT PROGRESS NOTE SERVICE DATE: 03/23/2025 SERVICE TIME: 8:53 AM LOS: 8 days Chart reviewed. Patient admitted from home with 2 children for epigastric pain, acute respiratory failure. Patient on 6L NC, (baseline 5L NC), IVAB. PT recommending HHC. Patient baseline functionally independent, relies on family for transport. DME use noted of BIPAP, 5L NC via [employer], (home concentrator goes to 10L per patient), shower chair. Patient active with PCP listed in chart. Patient wishes to go home, denies need for skilled home care or home therapy on dc. Patient is interested in EXPENDITURE REQUISITION CLERK, plans to go home with sister and sister can assist in all care. Maribel called insurance about EXPENDITURE REQUISITION CLERK and YANI also provided EXPENDITURE REQUISITION CLERK information provided 03/21. Patient requesting walker for home going. FOC provided as ginana. Order placed and gianna notified of need. Plan home, CM monitoring for need for increase in o2 at home. [place] needs notified on day of dc to deliver walker. Order placed. CM will follow. SIGNATURE: Inna Sebastian RN PATIENT NAME: Gracie Banuelos DATE: March 23, 2025 TIME: 8:53 AM [facility] 03-22-2025 Note HNO ID: [id number] Author: GURJIT RAYO MD Service: Hospital Medicine Author Type: Physician Type: Progress Notes Filed: 03/22/2025 13:35 Note Text: HOSPITALIST SERVICE DAILY PROGRESS NOTE PRIMARY CARE PHYSICIAN: Misbah Elkins MD Subjective SUBJECTIVE: No acute events overnight. No acute complaints. Currently on 7 L oxygen via nasal cannula. Discussed her case with pulmonology. Still having diarrhea. Current Facility-Administered Medications Medication Dose Route Frequency iv contrast (radiology procedure) INTRAVENOUS DIRECTED PRN heparin 5,000 Units injection 5,000 Units SUBCUTANEOUS q 12 H NaCl 0.9% iv flush bag 20 mL INTRAVENOUS PRN ipratropium-albuterol 3 mL nebulizer solution (DUONEB) 3 mL INHALATION QID ondansetron 4 mg tab(s) (ZOFRAN) 4 mg ORAL q 6 H PRN Or ondansetron (PF) 4 mg injection (ZOFRAN) 4 mg INTRAVENOUS q 6 H PRN acetaminophen 650 mg CUP (TYLENOL) 650 mg ORAL/FEEDING TUBE q 4 H PRN budesonide 0.5 mg/2 mL 0.5 mg (PULMICORT) 0.5 mg INHALATION BID dextrose 40 % 15 g 15 g ORAL PRN Or glucagon 1 mg injection 1 mg INTRAMUSCULAR PRN Or dextrose 10% iv bolus 12.5 g INTRAVENOUS PRN thiamine 100 mg tab(s) (VITAMIN B1) 100 mg ORAL DAILY folic acid 1 mg tab(s) 1 mg ORAL DAILY multivitamin-ferrous fumarate-folic acid 1 tablet (CENTRUM) 1 tablet ORAL DAILY morphine 2 mg injection 2 mg INTRAVENOUS q 4 H PRN melatonin 6 mg tab(s) 6 mg ORAL DAILY (8 PM) amLODIPine 5 mg tab(s) (NORVASC) 5 mg ORAL DAILY lisinopril 10 mg tab(s) (ZESTRIL) 10 mg ORAL DAILY metoprolol tartrate (short acting) 25 mg tab(s) (LOPRESSOR) 25 mg ORAL BID ARIPiprazole 5 mg tab(s) (ABILIFY) 5 mg ORAL DAILY mirtazapine 45 mg (REMERON) 45 mg ORAL AT BEDTIME nicotine 21 mg/24 hr 1 patch (NICODERM) 1 patch TRANSDERMAL DAILY And nicotine -- REMOVE patch OTHER DAILY And nicotine - verify patch OTHER q 8 H gabapentin 300 mg cap(s) (NEURONTIN) 300 mg ORAL TID pantop[address]ole [address] 40 mg tab(s) (PROTONIX) 40 mg ORAL DAILY simvastatin 20 mg tab(s) (ZOCOR) 20 mg ORAL AT BEDTIME magnesium oxide 800 mg tab(s) (MAG-OX) 800 mg ORAL BID docusate sodium 100 mg cap(s) (COLACE) 100 mg ORAL BID calcium carbonate 500 mg chewable tab(s) (TUMS) 500 mg ORAL TID PRN loperamide 2 mg cap(s) (IMODIUM) 2 mg ORAL TID PRN hydrOXYzine pamoate 25 mg cap(s) (VISTARIL) 25 mg ORAL q 6 H PRN sodium chloride 0.9 % (flush) 2-10 mL (BD POSIFLUSH) 2-10 mL INTRAVENOUS DIRECTED PRN And perflutren lipid microspheres 1.1 mg/mL 1.3 mL injection (DEFINITY) 1.3 mL INTRAVENOUS DIRECTED PRN acetylcysteine 200 mg/mL (20 %) 400 mg (MUCOMYST) 400 mg INHALATION QID ferric gluconate 125 mg in NaCl 0.9% 100 mL (FERRLECIT) 125 mg INTRAVENOUS DAILY AT 6 PM cefTRIAXone 2 g in D5W 100 mL Vial-Bag (ROCEPHIN) 2 g INTRAVENOUS q 24 H guaiFENesin 1,200 mg ER tab(s) (MUCINEX) 1,200 mg ORAL q 12 H Ipratropium [place] 1 spray nasal spray (ATROVENT) 1 spray INTRANASAL TID Objective PHYSICAL EXAM: BP 160/84 Pulse 92 Temp (Src) 98.4 (Oral) Resp 20 Ht 5' 5 (1.65m) Wt 133 lb 13.1 oz (60.7kg) SpO2 92% LMP 05/29/2010 BMI 22.27 kg/(m2). O2 Therapy: Nasal Cannula-Humidified (7-15 LPM), Liters (Numeric Only): (S) 6 Physical Exam Performed Gen: alert and oriented, NAD, vitals reviewed Head/Neck: NCAT; trachea appears midline, no gross LAD ENT: EOMI grossly, anicteric sclerae; MMM Resp: normal respiratory effort, symmetric chest rise CV: RRR; extremities well perfused GI: non-distended; no TTP Ext: no clubbing, cyanosis or edema Skin: no new rash or lesions on limited visual exam Neuro/MSK: moves all extremities Psych: normal mood; appropriate affect DATA: Diagnostic tests reviewed for today's visit: Most recent labs and imaging results. Assessment/Plan ASSESSMENT AND PLAN: 59-year-old female with past medical history of hypertension, hyperlipidemia, alcohol abuse, anxiety, COPD with chronic hypoxic respiratory failure on 5 L at baseline, chronic pancreatitis status post ERCP with stent placement 03/10. Patient was transferred from [facility]. There she was found to have acute pancreatitis. She had a stent placed in the body of the pancreas however on CT scan at the other hospital she had new peripancreatic inflammation. She was alsoexperiencing acute hypoxic respiratory failure and was emergently intubated and transferred to [facility] ICU. She required vasopressor support due to septic shock and was noted to have bilateral pneumonia. She was extubated and transferred to the floors. She remained hemodynamically stable off pressors but had increasing oxygen requirements. Acute on chronic hypoxic respiratory failure - Currently saturating well on 7 L via nasal cannula - Baseline 5 L - Continue oxygen, wean as able - Breathing treatments - Treatment of pneumonia and COPD exacerbation as below, BNP also elevated - CTA done negative for PE and showed improvement of aeration - Pulm following (more content not included)... [facility] 03-22-2025 Note HNO ID: [id number] Author: INNA SEBASTIAN, RN Service: Care Management Author Type: Registered Nurse Type: Care Mgt Progress Note Filed: 03/22/2025 09:47 Note Text: CARE MANAGEMENT PROGRESS NOTE SERVICE DATE: 03/22/2025 SERVICE TIME: 9:46 AM LOS: 7 days Chart reviewed. Patient admitted from home with 2 children for epigastric pain, acute respiratory failure. Patient on 7L high flow (baseline 5L NC), IVAB. Therapy ordered to eval due to desaturation with activity. Patient baseline functionally independent, relies on family for transport. DME use noted of BIPAP, 5L NC via [employer], shower chair. Patient active with PCP listed in chart. CM met with patient 03/21 to discuss dc planning. Patient wishes to go home, denies need for skilled home care or home therapy on dc. Patient is interested in EXPENDITURE REQUISITION CLERK, plans to go home with sister and sister can assist in all care. Paient instructed to call insurance about EXPENDITURE REQUISITION CLERK and EXPENDITURE REQUISITION CLERK information provided this date. Patient requesting walker for home going. FOC provided as gianna. Order placed and gianna notified of need. Patient will also call [employer] to bring tank to her for discharge and see how high her home concentrator goes (if it goes to 5L or 10L). Plan home, CM monitoring for need for increase in o2 at home. [place] needs notified on day of dc to deliver walker. Order placed. CM will follow. SIGNATURE: Inna Sebastian RN PATIENT NAME: Gracie Banuelos DATE: March 22, 2025 TIME: 9:46 AM [facility] 03-21-2025 Note HNO ID: [id number] Author: INNA SEBASTIAN RN Service: Care Management Author Type: Registered Nurse Type: Care Mgt Progress Note Filed: 03/21/2025 11:09 Note Text: CARE MANAGEMENT PROGRESS NOTE SERVICE DATE: 03/21/2025 SERVICE TIME: 11:06 AM LOS: 6 days [place] of Choice Given: Yes Level of Care Discussed: Other: See Comment (DME) Financial Disclosure Provided: Yes Provider List: DME Provider list within the patient's requested geographic area shared with the patient/family: No Chart reviewed. Patient admitted from home with 2 children for epigastric pain, acute respiratory failure. Patient on 10L high flow (baseline 5L NC), IVAB. Therapy ordered to eval due to desaturation with activity. Patient baseline functionally independent, relies on family for transport. DME use noted of BIPAP, 5L NC via [employer], shower chair. Patient active with PCP listed in chart. CM met with patient this AM to discuss dc planning. Patient wishes to go home, denies need for skilled home care or home therapy on dc. Patient is interested in EXPENDITURE REQUISITION CLERK, plans to go home with sister and sister can assist in all care. Paimichele instructed to call insurance about EXPENDITURE REQUISITION CLERK and EXPENDITURE REQUISITION CLERK information provided this date. Patient requesting walker for home going. FOC provided as gianna. Order placed and gianna notified of need. Patient will also call [facility] to bring tank to her for discharge and see how high her home concentrator goes (if it goes to 5L or 10L). Plan home, CM monitoring for need for increase in o2 at home. [place] needs notified on day of dc to deliver walker. Order placed. CM will follow. SIGNATURE: Inna Sebastian RN PATIENT NAME: Gracie Banuelos DATE: March 21, 2025 TIME: 11:06 AM [facility] 03-21-2025 Telephone encounter Note Prescription Refill Information The patient has been identified by name and date of : Yes Caregiver verified no other encounters exist for this prescription request: Yes Caregiver confirmed with patient/requestor that no other refills are due, in the near future, with this provider at this time: Yes The last office visit in the department: 02-08-25 Does the patient have a future office visit with this provider/department: Yes Requested Prescriptions Pending Prescriptions Disp Refills hydrOXYzine pamoate (VISTARIL) 25 mg capsule 30 capsule 11 Sig: Take 1 capsule by mouth daily at bedtime. lisinopril (ZESTRIL) 10 mg tablet 30 tablet 11 Sig: Take 1 tablet by mouth once daily. Holly Jensen March 21, 2025 8:57 AM T [facility] 03-21-2025 Miscellaneous Notes Prescription Refill Information The patient has been identified by name and date of : Yes Caregiver verified no other encounters exist for this prescription request: Yes Caregiver confirmed with patient/requestor that no other refills are due, in the near future, with this provider at this time: Yes The last office visit in the department: 02-08-25 Does the patient have a future office visit with this provider/department: Yes Requested Prescriptions Pending Prescriptions Disp Refills hydrOXYzine pamoate (VISTARIL) 25 mg capsule 30 capsule 11 Sig: Take 1 capsule by mouth daily at bedtime. lisinopril (ZESTRIL) 10 mg tablet 30 tablet 11 Sig: Take 1 tablet by mouth once daily. Holly Aysha Jensen March 21, 2025 8:57 AM documented in this encounter [facility] 03-21-2025 Note HNO ID: [id number] Author: GURJIT RAYO MD Service: Hospital Medicine Author Type: Physician Type: Progress Notes Filed: 03/21/2025 14:40 Note Text: HOSPITALIST SERVICE DAILY PROGRESS NOTE PRIMARY CARE PHYSICIAN: Misbah Elkins MD Subjective SUBJECTIVE: No acute events overnight. No acute complaints. Remains on 10 L high flow nasal cannula. Discussed her case with pulm. Current Facility-Administered Medications Medication Dose Route Frequency iv contrast (radiology procedure) INTRAVENOUS DIRECTED PRN heparin 5,000 Units injection 5,000 Units SUBCUTANEOUS q 12 H NaCl 0.9% iv flush bag 20 mL INTRAVENOUS PRN ipratropium-albuterol 3 mL nebulizer solution (DUONEB) 3 mL INHALATION QID ondansetron 4 mg tab(s) (ZOFRAN) 4 mg ORAL q 6 H PRN Or ondansetron (PF) 4 mg injection (ZOFRAN) 4 mg INTRAVENOUS q 6 H PRN acetaminophen 650 mg CUP (TYLENOL) 650 mg ORAL/FEEDING TUBE q 4 H PRN budesonide 0.5 mg/2 mL 0.5 mg (PULMICORT) 0.5 mg INHALATION BID dextrose 40 % 15 g 15 g ORAL PRN Or glucagon 1 mg injection 1 mg INTRAMUSCULAR PRN Or dextrose 10% iv bolus 12.5 g INTRAVENOUS PRN thiamine 100 mg tab(s) (VITAMIN B1) 100 mg ORAL DAILY folic acid 1 mg tab(s) 1 mg ORAL DAILY multivitamin-ferrous fumarate-folic acid 1 tablet (CENTRUM) 1 tablet ORAL DAILY morphine 2 mg injection 2 mg INTRAVENOUS q 4 H PRN melatonin 6 mg tab(s) 6 mg ORAL DAILY (8 PM) amLODIPine 5 mg tab(s) (NORVASC) 5 mg ORAL DAILY lisinopril 10 mg tab(s) (ZESTRIL) 10 mg ORAL DAILY metoprolol tartrate (short acting) 25 mg tab(s) (LOPRESSOR) 25 mg ORAL BID ARIPiprazole 5 mg tab(s) (ABILIFY) 5 mg ORAL DAILY mirtazapine 45 mg (REMERON) 45 mg ORAL AT BEDTIME nicotine 21 mg/24 hr 1 patch (NICODERM) 1 patch TRANSDERMAL DAILY And nicotine -- REMOVE patch OTHER DAILY And nicotine - verify patch OTHER q 8 H gabapentin 300 mg cap(s) (NEURONTIN) 300 mg ORAL TID pantoprazole DR 40 mg tab(s) (PROTONIX) 40 mg ORAL DAILY simvastatin 20 mg tab(s) (ZOCOR) 20 mg ORAL AT BEDTIME magnesium oxide 800 mg tab(s) (MAG-OX) 800 mg ORAL BID docusate sodium 100 mg cap(s) (COLACE) 100 mg ORAL BID calcium carbonate 500 mg chewable tab(s) (TUMS) 500 mg ORAL TID PRN loperamide 2 mg cap(s) (IMODIUM) 2 mg ORAL TID PRN hydrOXYzine pamoate 25 mg cap(s) (VISTARIL) 25 mg ORAL q 6 H PRN sodium chloride 0.9 % (flush) 2-10 mL (BD POSIFLUSH) 2-10 mL INTRAVENOUS DIRECTED PRN And perflutren lipid microspheres 1.1 mg/mL 1.3 mL injection (DEFINITY) 1.3 mL INTRAVENOUS DIRECTED PRN acetylcysteine 200 mg/mL (20 %) 400 mg (MUCOMYST) 400 mg INHALATION QID ferric gluconate 125 mg in NaCl 0.9% 100 mL (FERRLECIT) 125 mg INTRAVENOUS DAILY AT 6 PM cefTRIAXone 2 g in D5W 100 mL Vial-Bag (ROCEPHIN) 2 g INTRAVENOUS q 24 H Objective PHYSICAL EXAM: BP 100/76 Pulse 104 Temp (Src) 97.4 (Axillary) Resp 22 Ht 5' 5 (1.65m) Wt 133 lb 13.1 oz (60.7kg) SpO2 91% LMP 05/29/2010 BMI 22.27 kg/(m2). O2 Therapy: Nasal Cannula, Liters (Numeric Only): 10.0 Physical Exam Performed Gen: alert and oriented, NAD, vitals reviewed Head/Neck: NCAT; trachea appears midline, no gross LAD ENT: EOMI grossly, anicteric sclerae; MMM Resp: normal respiratory effort, symmetric chest rise CV: RRR; extremities well perfused GI: non-distended; no TTP Ext: no clubbing, cyanosis or edema Skin: no new rash or lesions on limited visual exam Neuro/MSK: moves all extremities Psych: normal mood; appropriate affect DATA: Diagnostic tests reviewed for today's visit: Most recent labs and imaging results. Assessment/Plan ASSESSMENT AND PLAN: 59-year-old female with past medical history of hypertension, hyperlipidemia, alcohol abuse, anxiety, COPD with chronic hypoxic respiratory failure on 5 L at baseline, chronic pancreatitis status post ERCP with stent placement 03/10. Patient was transferred from [facility]. There she was found to have acute pancreatitis. She had a stent placed in the body of the pancreas however on CT scan at the other hospital she had new peripancreatic inflammation. She was alsoexperiencing acute hypoxic respiratory failure and was emerg[facility] [facility] She required vasopressor support due to septic shock and was noted to have bilateral pneumonia. She was extubated and transferred to the floors. She remained hemodynamically stable off pressors but had increasing oxygen requirements. Acute on chronic hypoxic respiratory failure - Currently saturating well on 10 L via nasal cannula - Baseline 5 L - Continue oxygen, wean as able - Breathing treatments - Treatment of pneumonia and COPD exacerbation as below, BNP also elevated - CTA done yesterday negative for PE and showed improvement of aeration - Pulm following Bilateral pneumonia - Continue empiric antibiotics, expanded to cefepime and vancomycin on 03/19 due to worsening hypoxia - MRSA swab showing MSSA, can DC vancomycin - Spu (more content not included)... [facility] 03-20-2025 Note HNO ID: [id number] Author: GURJIT RAYO MD Service: Hospital Medicine Author Type: Physician Type: Progress Notes Filed: 03/20/2025 13:31 Note Text: HOSPITALIST SERVICE DAILY PROGRESS NOTE PRIMARY CARE PHYSICIAN: Misbah Elkins MD Subjective SUBJECTIVE: Yesterday had rapid response called for tachycardia and tachypnea, hypoxia. Was given metoprolol, Lasix, morphine with improvement. CTA chest was checked and negative for PE and showed improvement of her initial findings. Otherwise no acute events overnight. She continues to have multiple bowel movements. Currently on 10 L high flow nasal cannula. No acute complaints. Current Facility-Administered Medications Medication Dose Route Frequency iv contrast (radiology procedure) INTRAVENOUS DIRECTED PRN heparin 5,000 Units injection 5,000 Units SUBCUTANEOUS q 12 H NaCl 0.9% iv flush bag 20 mL INTRAVENOUS PRN ipratropium-albuterol 3 mL nebulizer solution (DUONEB) 3 mL INHALATION QID ondansetron 4 mg tab(s) (ZOFRAN) 4 mg ORAL q 6 H PRN Or ondansetron (PF) 4 mg injection (ZOFRAN) 4 mg INTRAVENOUS q 6 H PRN acetaminophen 650 mg CUP (TYLENOL) 650 mg ORAL/FEEDING TUBE q 4 H PRN mupirocin 2 % 0.5 g nasal ointment (BACTROBAN) 0.5 g NASAL BID budesonide 0.5 mg/2 mL 0.5 mg (PULMICORT) 0.5 mg INHALATION BID dextrose 40 % 15 g 15 g ORAL PRN Or glucagon 1 mg injection 1 mg INTRAMUSCULAR PRN Or dextrose 10% iv bolus 12.5 g INTRAVENOUS PRN thiamine 100 mg tab(s) (VITAMIN B1) 100 mg ORAL DAILY folic acid 1 mg tab(s) 1 mg ORAL DAILY multivitamin-ferrous fumarate-folic acid 1 tablet (CENTRUM) 1 tablet ORAL DAILY morphine 2 mg injection 2 mg INTRAVENOUS q 4 H PRN melatonin 6 mg tab(s) 6 mg ORAL DAILY (8 PM) amLODIPine 5 mg tab(s) (NORVASC) 5 mg ORAL DAILY lisinopril 10 mg tab(s) (ZESTRIL) 10 mg ORAL DAILY metoprolol tartrate (short acting) 25 mg tab(s) (LOPRESSOR) 25 mg ORAL BID ARIPiprazole 5 mg tab(s) (ABILIFY) 5 mg ORAL DAILY mirtazapine 45 mg (REMERON) 45 mg ORAL AT BEDTIME nicotine 21 mg/24 hr 1 patch (NICODERM) 1 patch TRANSDERMAL DAILY And nicotine -- REMOVE patch OTHER DAILY And nicotine - verify patch OTHER q 8 H gabapentin 300 mg cap(s) (NEURONTIN) 300 mg OR[address] TID pantop[address] 40 mg tab(s) (PROTONIX) 40 mg ORAL DAILY simvastatin 20 mg tab(s) (ZOCOR) 20 mg ORAL AT BEDTIME magnesium oxide 800 mg tab(s) (MAG-OX) 800 mg ORAL BID docusate sodium 100 mg cap(s) (COLACE) 100 mg ORAL BID calcium carbonate 500 mg chewable tab(s) (TUMS) 500 mg ORAL TID PRN loperamide 2 mg cap(s) (IMODIUM) 2 mg ORAL TID PRN ferrous sulfate 325 mg tab(s) 325 mg ORAL DAILY hydrOXYzine pamoate 25 mg cap(s) (VISTARIL) 25 mg ORAL q 6 H PRN sodium chloride 0.9 % (flush) 2-10 mL (BD POSIFLUSH) 2-10 mL INTRAVENOUS DIRECTED PRN And perflutren lipid microspheres 1.1 mg/mL 1.3 mL injection (DEFINITY) 1.3 mL INTRAVENOUS DIRECTED PRN vancomycin dosing and monitoring per pharmacy OTHER As Directed cefepime 1 g in D5W 100 mL Vial-Bag (MAXIPIME) 1 g INTRAVENOUS q 8 H iv contrast (radiology procedure) INTRAVENOUS DIRECTED PRN vancomycin 750 mg in D5W 250 mL Vial-Bag (VANCOCIN) 0.75 g INTRAVENOUS q 12 HR acetylcysteine 200 mg/mL (20 %) 400 mg (MUCOMYST) 400 mg INHALATION QID Objective PHYSICAL EXAM: BP 104/72 Pulse 105 Temp (Src) 97.4 (Oral) Resp 24 Ht 5' 5 (1.65m) Wt 125 lb 10.6 oz (57.0kg) SpO2 93% LMP 05/29/2010 BMI 20.91 kg/(m2). O2 Therapy: Nasal Cannula, Liters (Numeric Only): 10.0 Physical Exam Performed Gen: alert and oriented, NAD, vitals reviewed Head/Neck: NCAT; trachea appears midline, no gross LAD ENT: EOMI grossly, anicteric sclerae; MMM Resp: normal respiratory effort, symmetric chest rise CV: RRR; extremities well perfused GI: non-distended; no TTP Ext: no clubbing, cyanosis or edema Skin: no new rash or lesions on limited visual exam Neuro/MSK: moves all extremities Psych: normal mood; appropriate affect DATA: Diagnostic tests reviewed for today's visit: Most recent labs and imaging results. Assessment/Plan ASSESSMENT AND PLAN: 59-year-old female with past medical history of hypertension, hyperlipidemia, alcohol abuse, anxiety, COPD with chronic hypoxic respiratory failure on 5 L at baseline, chronic pancreatitis status post ERCP with stent placement 03/10. Patient was transferred from [facility]. There she was found to have acute pancreatitis. She had a stent placed in the body of the pancreas however on CT scan at the other hospital she had new peripancreatic inflammation. She was alsoexperiencing acute hypoxic respiratory failure and was emergently intubated and transferred to [facility] ICU. She required vasopressor support due to septic shock and was noted to have bilateral pneumonia. She was extubated and transferred to the floors. She remained hemodynamically stable off pressors but had increasing oxygen requirements. Acute on chronic hypoxic respiratory failure (more content not included)... [facility] 03-20-2025 Note HNO ID: [id number] Author: INNA SEBASTIAN RN Service: Care Management Author Type: Registered Nurse Type: Care Mgt Progress Note Filed: 03/20/2025 08:38 Note Text: CARE MANAGEMENT PROGRESS NOTE SERVICE DATE: 03/20/2025 SERVICE TIME: 8:36 AM LOS: 5 days Chart reviewed. Patient admitted from home with 2 children for epigastric pain, acute respiratory failure. Patient on 10L high flow (baseline 5L NC), IVAB, pending echo. Patient baseline functionally independent, relies on family for transport. DME use noted of BIPAP, 5L NC via [employer], shower chair. Patient active with PCP listed in chart. Plan home, CM monitoring for need for increase in o2 at home. CM will follow. SIGNATURE: Inna Sebastian RN PATIENT NAME: Gracie Banuelos DATE: March 20, 2025 TIME: 8:36 AM [facility] 03-19-2025 Note HNO ID: [id number] Author: NGUYEN PALACIOS DO Service: Hospital Medicine Author Type: Physician Type: Plan of Care Filed: 03/28/2025 17:20 Note Text: There was a EVENT SECURITY OFFICER called on this patient due to elevated blood pressure, tachycardia, and worsening hypoxia. I ordered CXR and EKG. CXR did show overall improved aeration. Procalcitonin did trend up. EKG is still pending. There is down trending yet persistent leukocytosis and so I Dced rocephin and placed patient on cefepime and vancomycin. I will order MRSA surveillance. Viral respiratory panel from 03/16 is negative. Will also order CTA chest to R/O PE. Echo does not show CHF. [facility] 03-19-2025 Note HNO ID: [id number] Author: NGUYEN PALACIOS DO Service: Hospital Medicine Author Type: Physician Type: Progress Notes Filed: 03/19/2025 11:49 Note Text: DEPARTMENT OF HOSPITAL MEDICINE PROGRESS NOTE SERVICE DATE: 03/19/2025 SERVICE TIME: 10:59 AM Hospital Medicine/Primary Attending: Nguyen Palacios DO PRIMARY CARE PHYSICIAN: Misbah Elkins MD Readmission: Highest Readmission Risk Score: 14 Subjective INTERVAL HPI: This is a 59 year old female with past medical history of COPD, Chronic hypoxic respiratory failure on 5 L NC. Patient was transferred from [facility]. There she was found to have acute pancreatitis. She had a stent placed in the body of the pancrease however on CT scan at the other hospital she had new peripancreatic inflammation. She was also experiencing acute hypoxic respiratory failure and was emergently intubated and transferred to [facility]. Patient was admitted [facility] ICU. She was on levophed and vasopressin. She was treated for bilateral pneumonia (L>R) as well as COPD exacerbation. Currently on rocephin and breathing treatments. Stopped Vancomycin (Day 2). De-escalated Cefepime (Day 1) to Ceftriaxone (Day 1). She was then extubated and transferred to the floors. Current Facility-Administered Medications Medication Dose Route Frequency iv contrast (radiology procedure) INTRAVENOUS DIRECTED PRN heparin 5,000 Units injection 5,000 Units SUBCUTANEOUS q 12 H NaCl 0.9% iv flush bag 20 mL INTRAVENOUS PRN ipratropium-albuterol 3 mL nebulizer solution (DUONEB) 3 mL INHALATION QID pantoprazole 40 mg injection (PROTONIX) 40 mg INTRAVENOUS DAILY (6 AM) ondansetron 4 mg tab(s) (ZOFRAN) 4 mg ORAL q 6 H PRN Or ondansetron (PF) 4 mg injection (ZOFRAN) 4 mg INTRAVENOUS q 6 H PRN acetaminophen 650 mg CUP (TYLENOL) 650 mg ORAL/FEEDING TUBE q 4 H PRN sodium chloride 3% solution 3 mL INHALATION ONLY 3 mL INHALATION QID mupirocin 2 % 0.5 g nasal ointment (BACTROBAN) 0.5 g NASAL BID budesonide 0.5 mg/2 mL 0.5 mg (PULMICORT) 0.5 mg INHALATION BID dextrose 40 % 15 g 15 g ORAL PRN Or glucagon 1 mg injection 1 mg INTRAMUSCULAR PRN Or dextrose 10% iv bolus 12.5 g INTRAVENOUS PRN cefTRIAXone 2 g in D5W 100 mL Vial-Bag (ROCEPHIN) 2 g INTRAVENOUS q 24 H thiamine 100 mg tab(s) (VITAMIN B1) 100 mg ORAL DAILY folic acid 1 mg tab(s) 1 mg ORAL DAILY multivitamin-ferrous fumarate-folic acid 1 tablet (CENTRUM) 1 tablet ORAL DAILY morphine 2 mg injection 2 mg INTRAVENOUS q 4 H PRN hydrALAZINE 10 mg injection (APRESOLINE) 10 mg INTRAVENOUS q 4 H PRN labetalol 10 mg injection syringe (NORMODYNE) 10 mg INTRAVENOUS q 2 H PRN melatonin 6 mg tab(s) 6 mg ORAL DAILY (8 PM) amLODIPine 5 mg tab(s) (NORVASC) 5 mg ORAL DAILY lisinopril 10 mg tab(s) (ZESTRIL) 10 mg ORAL DAILY metoprolol tartrate (short acting) 25 mg tab(s) (LOPRESSOR) 25 mg ORAL BID ARIPiprazole 5 mg tab(s) (ABILIFY) 5 mg ORAL DAILY mirtazapine 45 mg (REMERON) 45 mg ORAL AT BEDTIME nicotine 21 mg/24 hr 1 patch (NICODERM) 1 patch TRANSDERMAL DAILY And nicotine -- REMOVE patch OTHER DAILY And nicotine - verify patch OTHER q 8 H gabapentin 300 mg cap(s) (NEURONTIN) 300 mg ORAL TID pantop[address] 40 mg tab(s) (PROTONIX) 40 mg ORAL DAILY simvastatin 20 mg tab(s) (ZOCOR) 20 mg ORAL AT BEDTIME magnesium oxide 800 mg tab(s) (MAG-OX) 800 mg ORAL BID docusate sodium 100 mg cap(s) (COLACE) 100 mg ORAL BID calcium carbonate 500 mg chewable tab(s) (TUMS) 500 mg ORAL TID PRN loperamide 2 mg cap(s) (IMODIUM) 2 mg ORAL TID PRN Objective PHYSICAL EXAM: BP 126/93 Pulse 94 Temp (Src) 98.6 (Oral) Resp 20 Ht 5' 5 (1.65m) Wt 125 lb 10.6 oz (57.0kg) SpO2 90% LMP 05/29/2010 BMI 20.91 kg/(m2). O2 Therapy: Nasal Cannula-Humidified (7-15 LPM), Liters (Numeric Only): 7 Physical Exam Performed PHYSICAL EXAMINATION: General appearance: Well appearing, alert, in no acute distress, well-hydrated, well nourished. Lungs: Lungs clear to auscultation. No wheezing, rhonchi, rales. Heart: RRR without murmur, gallop, or rubs. No ectopy Abdomen: Normal abdominal exam, Abdomen soft, non-tender. Bowel sounds normal. No masses, organomegaly Extremities: No deformities, edema, skin discoloration, clubbing or cyanosis. Good capillary refill. Musculoskeletal: No joint swelling, deformity, or tenderness Peripheral pulses: Normal Neuro: Gait normal. Reflexes normal and symmetric. Sensation grossly intact. Lines, Drains, and Airways Line Duration Peripheral 03/16/25 0000 [facility] Short Right Forearm 18 Gauge 3 days Peripheral 03/16/25 0000 External Facility Short Left Antecubital 20 Gauge 3 days Peripheral 03/16/25 External Facility Short Right Antecubital 20 Gauge 3 days Reviewed lines and needs to be continued: REASONS: Difficulty in obtaining/maintaining access DATA: Diagnostic tests reviewed for today's visit: Most recent labs Most recent imaging Assessment/Virgen (more content not included)... [facility] 03-19-2025 Note HNO ID: [id number] Author: AGUSTINA PACHECO, RN Service: Care Management Author Type: Registered Nurse Type: Care Mgt Progress Note Filed: 03/19/2025 10:23 Note Text: CARE MANAGEMENT PROGRESS NOTE SERVICE DATE: 03/19/2025 SERVICE TIME: 10:08 AM LOS: 4 days Chart reviewed. Patient came to the hospital from home with two of her adult children for epigastric pain. Her pain reportedly started following a pancreatic stent placement which was completed 03/10. She initially presented to [facility] but was a transfer to [facility] following intubation. She is being treated for respiratory failure/PNA/chronic pancreatitis/sepsis.She is being treated with aerosols, IV antibiotics, and vasopressor support. At her baseline she is independent in her ADL's with the exception of transport which her family provides. Her DME includes a bipap, shower chair, and [place] [facility] is established with her PCP, uses no community resources, and can afford her medications. Plan is for Pt to return home. She has been OOB in room with stand by assist. Pt remains on increased humidified O2 @ 7L at this time. Will need to wean down to baseline. Family can transport home. CM to follow and assist with needs. SIGNATURE: Agustina Pacheco RN PATIENT NAME: Gracie Banuelos DATE: March 19, 2025 TIME: 10:08 AM [facility] 03-18-2025 Note HNO ID: [id number] Author: NGUYEN PALACIOS DO Service: Hospital Medicine Author Type: Physician Type: Plan of Care Filed: 03/18/2025 13:58 Note Text: This is a 59 year old female with past medical history of COPD, Chronic hypoxic respiratory failure on 5 L NC. Patient was transferred from [facility]. There she was found to have acute pancreatitis. She had a stent placed in the body of the pancrease however on CT scan at the other hospital she had new peripancreatic inflammation. She was also experiencing acute hypoxic respiratory failure and was emergently intubated and transferred to [facility]. Patient was admitted [facility] ICU. She was on levophed and vasopressin. She was treated for bilateral pneumonia (L>R) as well as COPD exacerbation. Currently on rocephin and breathing treatments. Stopped Vancomycin (Day 2). De-escalated Cefepime (Day 1) to Ceftriaxone (Day 1). She was then extubated and transferred to the floors. Acute hypoxic respiratory failure - Currently on 2 L NC. Sputum culture positive for strept pneumonia. MRSA surveillance is positive. Negative viral respiratory panel Septic shock 2/2 B/L PNA - She has been weaned off of pressors. Continue rocephin. Leukocytosis is down trending. Sputum culture positive for strept pneumonia. Bcx are negative times 2 days Acute on chronic normocytic anemia - Will check iron studies. Keep hemoglobin greater than 7 [facility] 03-18-2025 Note HNO ID: [id number] Author: GERSON MCCALL MD Service: Critical Care Author Type: Physician Type: Progress Notes Filed: 03/18/2025 09:04 Note Text: PULMONARY/CRITICAL CARE INTENSIVE MEDICAL/SURGICAL CARE UNIT PROGRESS NOTE Patient Name: Gracie Banuelos Account #: Data Unavailable Admission Date: 03/15/2025 Date of Evaluation: 03/18/2025 Time of Evaluation: 7:57 AM SUBJECTIVE VITALS 03/18/25 0700 03/18/25 0715 03/18/25 0730 03/18/25 0746 BP: 154/72 Pulse: 90 88 98 103 Resp: Temp: 36.7 ?C (98.1 ?F) TempSrc: Oral SpO2: 95% 94% 93% 91% Weight: Height: PHYSICAL EXAM Gen: Alert AND Oriented x 3, No acute distress HEENT: Normocephalic, Atraumatic, Pupils Equally Reactive to light and accomodation, moist mucous membranes, Neck: Supple, no rigidity, Trachea is midline, no Lymphadenopathy Lungs: Clear to Auscultation bilaterally , No wheezing, rhonchi or rales Heart: Regular Rate and Rhythm, Normal S1 and S2, no murmurs Abd: Soft, Nontender and nondistended, Positive Bowel Sounds x all four quadrants Ext: No edema, +2 pulses Neuro: CN II - XII grossly intact, no sensory/motor deficits noted 24 hour Intake AND Output: Intake/Output Summary (Last 24 hours) at 03/18/2025 0813 Last data filed at 03/18/2025 0745 Gross per 24 hour Intake 949 ml Output 1150 ml Net -201 ml INPATIENT MEDICATIONS : Current Facility-Administered Medications Medication Dose Route Frequency iv contrast (radiology procedure) INTRAVENOUS DIRECTED PRN heparin 5,000 Units injection 5,000 Units SUBCUTANEOUS q 12 H NaCl 0.9% iv flush bag 20 mL INTRAVENOUS PRN ipratropium-albuterol 3 mL nebulizer solution (DUONEB) 3 mL INHALATION QID pantoprazole 40 mg injection (PROTONIX) 40 mg INTRAVENOUS DAILY (6 AM) ondansetron 4 mg tab(s) (ZOFRAN) 4 mg ORAL q 6 H PRN Or ondansetron (PF) 4 mg injection (ZOFRAN) 4 mg INTRAVENOUS q 6 H PRN acetaminophen 650 mg CUP (TYLENOL) 650 mg ORAL/FEEDING TUBE q 4 H PRN sodium chloride 3% solution 3 mL INHALATION ONLY 3 mL INHALATION QID mupirocin 2 % 0.5 g nasal ointment (BACTROBAN) 0.5 g NASAL BID budesonide 0.5 mg/2 mL 0.5 mg (PULMICORT) 0.5 mg INHALATION BID dextrose 40 % 15 g 15 g ORAL PRN Or glucagon 1 mg injection 1 mg INTRAMUSCULAR PRN Or dextrose 10% iv bolus 12.5 g INTRAVENOUS PRN cefTRIAXone 2 g in D5W 100 mL Vial-Bag (ROCEPHIN) 2 g INTRAVENOUS q 24 H thiamine 100 mg tab(s) (VITAMIN B1) 100 mg ORAL DAILY folic acid 1 mg tab(s) 1 mg ORAL DAILY multivitamin-ferrous fumarate-folic acid 1 tablet (CENTRUM) 1 tablet ORAL DAILY morphine 2 mg injection 2 mg INTRAVENOUS q 4 H PRN hydrALAZINE 10 mg injection (APRESOLINE) 10 mg INTRAVENOUS q 4 H PRN labetalol 10 mg injection syringe (NORMODYNE) 10 mg INTRAVENOUS q 2 H PRN melatonin 6 mg tab(s) 6 mg ORAL DAILY (8 PM) amLODIPine 5 mg tab(s) (NORVASC) 5 mg ORAL DAILY lisinopril 10 mg tab(s) (ZESTRIL) 10 mg ORAL DAILY metoprolol tartrate (short acting) 25 mg tab(s) (LOPRESSOR) 25 mg ORAL BID ARIPiprazole 5 mg tab(s) (ABILIFY) 5 mg ORAL DAILY mirtazapine 45 mg (REMERON) 45 mg ORAL AT BEDTIME nicotine 21 mg/24 hr 1 patch (NICODERM) 1 patch TRANSDERMAL DAILY And [START ON 03/19/2025] nicotine -- REMOVE patch OTHER DAILY And nicotine - verify patch OTHER q 8 H gabapentin 300 mg cap(s) (NEURONTIN) 300 mg ORAL TID pantop[address] 40 mg tab(s) (PROTONIX) 40 mg ORAL DAILY simvastatin 20 mg tab(s) (ZOCOR) 20 mg ORAL AT BEDTIME HOME MEDICATIONS: gabapentin (NEURONTIN) 300 mg capsuleTake 1 capsule by mouth three times a day for 30 days.Disp: 90 capsuleRfl: 0 simvastatin (ZOCOR) 20 mg tabletTake 1 tablet by mouth daily at bedtime.Disp: 30 tabletRfl: 11 colchicine 0.6 mg tabletTake 2 pills x1 now then take 1 tablet BID until goneDisp: 5 tabletRfl: 0 albuterol (PROVENTIL) 2.5 mg /3 mL (0.083 %) nebulizer solutionUse 3 mL via nebulizer one time only for 1 dose. Use over 5-15minutes.Disp: 3 mLRfl: 0 ondansetron orally disintegrating (ZOFRAN ODT) 4 mg disintegrating tabletTake 1 tablet by mouth every 6 hours as needed for nausea/vomiting.Disp: 30 tabletRfl: [address] (PROTONIX) 40 mg tabletTake 1 tablet by mouth once daily.Disp: 90 tabletRfl: 2 metoprolol tartrate, short acting, (LOPRESSOR) 25 mg tabletTake 1 tablet by mouth two times a day.Disp: 180 tabletRfl: 3 amLODIPine (NORVASC) 5 mg tabletTake 1 tablet by mouth once daily.Disp: 30 tabletRfl: 5 hydrOXYzine HCl (ATARAX) 25 mg tabletTake 1 tablet by mouth three times a day as needed for itching/rash.Disp: 90 tabletRfl: 3 MUCINEX D MAXIMUM STRENGTH 120-1,200 mg tab ER 12 hrTake 1 tablet by mouth as needed.Disp: 30 tabletRfl: 0 Cholecalciferol, Vitamin D3, 50 mcg (2,000 unit) capTake 1 capsule by mouth once daily.Disp: 90 capsuleRfl: 2 predniSONE (DELTASONE) 20 mg tabletTake 2 tablets by mouth once daily.Disp: 5 tabletRfl: 0 (Patient not taking: Reported on 11/02/2024) ziprasidone (GEODON) 40 mg caps (more content not included)... [facility] 03-17-2025 Note HNO ID: [id number] Author: GERSON MCCALL MD Service: Critical Care Author Type: Physician Type: Progress Notes Filed: 03/17/2025 10:35 Note Text: PULMONARY/CRITICAL CARE INTENSIVE MEDICAL/SURGICAL CARE UNIT PROGRESS NOTE Patient Name: Gracie Banuelos Account #: Data Unavailable Admission Date: 03/15/2025 Date of Evaluation: 03/17/2025 Time of Evaluation: 9:35 AM SUBJECTIVE Overnight, patient's ventilator settings were weaned. Patient is on SBT and doing well. Will extubate. VITALS 03/17/25 0830 03/17/25 0845 03/17/25 0857 03/17/25 0940 BP: 169/100 (!) 212/108 Pulse: 120 (!) 130 (!) 131 (!) 122 Resp: 29 (!) 33 24 (!) 31 Temp: TempSrc: SpO2: (!) 89% 92% 97% 90% Weight: Height: PHYSICAL EXAM General: Intubated. Appears comfortable. On SBT. NAD. Skin: Warm, dry, intact, no lesion or rashes. HEENT: NC/AT, PERRLA, MMM. Neck: Trachea midline, neck supple, No JVD. CV: RRR. S1-S2 normal no murmurs, rubs, or gallops. Pulm: No vent dyssynchrony. Symmetric chest wall expansion. No accessory muscle use. Diffusely diminished breath sounds bilaterally. Abdomen: Bowel sounds present, abdomen soft, nonrigid, nontender. Ext: No peripheral edema noted. Palpable 2+ radial/2+ DP pulses bilaterally. Neuro: Off sedation. Moves all extremities and follows commands. No focal deficits. 24 hour Intake AND Output: Intake/Output Summary (Last 24 hours) at 03/17/2025 0945 Last data filed at 03/17/2025 0800 Gross per 24 hour Intake 1514 ml Output 2143 ml Net -629 ml INPATIENT MEDICATIONS : Current Facility-Administered Medications Medication Dose Route Frequency iv contrast (radiology procedure) INTRAVENOUS DIRECTED PRN heparin 5,000 Units injection 5,000 Units SUBCUTANEOUS q 12 H NaCl 0.9% iv flush bag 20 mL INTRAVENOUS PRN fentaNYL 20 mcg/mL iv infusion in NaCl 0.9% 100 mL (SUBLIMAZE) 25-150 mcg/hr INTRAVENOUS CONTINUOUS ipratropium-albuterol 3 mL nebulizer solution (DUONEB) 3 mL INHALATION QID pantoprazole 40 mg injection (PROTONIX) 40 mg INTRAVENOUS DAILY (6 AM) ondansetron 4 mg tab(s) (ZOFRAN) 4 mg ORAL q 6 H PRN Or ondansetron (PF) 4 mg injection (ZOFRAN) 4 mg INTRAVENOUS q 6 H PRN NORepinephrine iv infusion 16 mg in D5W 250 mL (LEVOPHED) 0.6-50 mcg/min INTRAVENOUS CONTINUOUS propofol infusion (DIPRIVAN) 5-60 mcg/kg/min INTRAVENOUS CONTINUOUS acetaminophen 650 mg CUP (TYLENOL) 650 mg ORAL/FEEDING TUBE q 4 H PRN cefepime 2 g in D5W 100 mL Vial-Bag (MAXIPIME) 2 g INTRAVENOUS q 12 HR sodium chloride 3% solution 3 mL INHALATION ONLY 3 mL INHALATION QID mupirocin 2 % 0.5 g nasal ointment (BACTROBAN) 0.5 g NASAL BID budesonide 0.5 mg/2 mL 0.5 mg (PULMICORT) 0.5 mg INHALATION BID dextrose 40 % 15 g 15 g ORAL PRN Or glucagon 1 mg injection 1 mg INTRAMUSCULAR PRN Or dextrose 10% iv bolus 12.5 g INTRAVENOUS PRN insulin lispro injection (rapid acting) (ADMElog) SUBCUTANEOUS q 6 H potassium chloride iv piggyback 20 mEq/100 mL 20 mEq INTRAVENOUS q 1 H HOME MEDICATIONS: gabapentin (NEURONTIN) 300 mg capsuleTake 1 capsule by mouth three times a day for 30 days.Disp: 90 capsuleRfl: 0 simvastatin (ZOCOR) 20 mg tabletTake 1 tablet by mouth daily at bedtime.Disp: 30 tabletRfl: 11 colchicine 0.6 mg tabletTake 2 pills x1 now then take 1 tablet BID until goneDisp: 5 tabletRfl: 0 albuterol (PROVENTIL) 2.5 mg /3 mL (0.083 %) nebulizer solutionUse 3 mL via nebulizer one time only for 1 dose. Use over 5-15minutes.Disp: 3 mLRfl: 0 ondansetron orally disintegrating (ZOFRAN ODT) 4 mg disintegrating tabletTake 1 tablet by mouth every 6 hours as needed for nausea/vomiting.Disp: 30 tabletRfl: [address] (PROTONIX) 40 mg tabletTake 1 tablet by mouth once daily.Disp: 90 tabletRfl: 2 metoprolol tartrate, short acting, (LOPRESSOR) 25 mg tabletTake 1 tablet by mouth two times a day.Disp: 180 tabletRfl: 3 amLODIPine (NORVASC) 5 mg tabletTake 1 tablet by mouth once daily.Disp: 30 tabletRfl: 5 hydrOXYzine HCl (ATARAX) 25 mg tabletTake 1 tablet by mouth three times a day as needed for itching/rash.Disp: 90 tabletRfl: 3 MUCINEX D MAXIMUM STRENGTH 120-1,200 mg tab ER 12 hrTake 1 tablet by mouth as needed.Disp: 30 tabletRfl: 0 Cholecalciferol, Vitamin D3, 50 mcg (2,000 unit) capTake 1 capsule by mouth once daily.Disp: 90 capsuleRfl: 2 predniSONE (DELTASONE) 20 mg tabletTake 2 tablets by mouth once daily.Disp: 5 tabletRfl: 0 (Patient not taking: Reported on 11/02/2024) ziprasidone (GEODON) 40 mg capsuleTake 1 capsule by mouth at bedtime as needed.Disp: 30 capsuleRfl: hydrOXYzine pamoate (VISTARIL) 25 mg capsuleTake 1 capsule by mouth daily at bedtime.Disp: 30 capsuleRfl: 11 lisinopril (ZESTRIL) 10 mg tabletTake 1 tablet by mouth once daily.Disp: 30 tabletRfl: 11 Benzonatate 200 mg capsuleTake 200 mg by mouth three times a day as needed.Disp: Rfl: (Patient not taking: Reported on 11/07/2024) Blood Pressure MonitorHome blood pressure monitorDisp (more content not included)... [facility] 03-16-2025 Note HNO ID: [id number] Author: ANNETTA HUYNH, RN Service: Care Management Author Type: Registered Nurse Type: Care Mgt Initial Assessment Filed: 03/17/2025 09:01 Note Text: CARE MANAGEMENT: ASSESSMENT AND DISCHARGE PLAN SERVICE DATE: March 16, 2025 SERVICE TIME: 1400 PCP: Misbah Elkins MD Primary Contact: Extended Emergency Contact Information Primary Emergency Contact: Domonique Banuelos Mobile Relation: Sister Secondary Emergency Contact: Kasie Hernandez [place] Relation: Daughter Admission Status: Inpatient Insurance Provider: [employer] Discharge Planning requested by: Per Department Practice Potential Transition Plans Home, Home Care, Home OT/PT, Shelter Facility/Intermediate Care Facility, To Be Determined Advance Directives Current Advance Directive: Health Care Power of Tugboat Operator In Chart: No Cashiers Supervisor Attempted to Assist with AD Completion: No Unable to Assist Due To:: Sedation Current Living Arrangements and Support Lives with: Children Type of Residence: Private Residence (House) Support: Family members, Children, Friends/neighbors How do you manage to accomplish the following: Independent: Ambulation, Bathe/Shower, Dress, Meals/Meal Prep, Going to the bathroom, Medication Management Dependent: Transportation to appointments/community Current Services/Equipment Discharge Planning Patient Goal(s): Be able to go home, General wellness Russell of Choice Explained: Russell of Choice Given: Yes Level of Care Discussed: Home Care, Shelter Facility Are you interested in bedside delivery of your medications? No Discharge Planning Participant(s): Patient Patient/Family Comments: Caregiver Assessment: Transport at Discharge: Transportation Arrangements: To Be Determined Needs Prior to Discharge: Needs Prior to Discharge: To Be Determined Post-Acute Discharge Plan: Intimate Partner Violence We have begun to talk to patients about safe and healthy relationships because it can have a large impact on your health. Do you feel safe around your partner or ex-partner?: Yes (Completed with daughter Kasie) Food Insecurity Within the past 12 months, you worried that your food would run out before you got the money to buy more.: Never true Within the past 12 months, the food you bought just didn't last and you didn't have money to get more.: Never true Transportation Needs In the past 12 months, has lack of transportation kept you from medical appointments or from getting medications?: No In the past 12 months, has lack of transportation kept you from meetings, work, or from getting things needed for daily living?: No Housing Stability In the last 12 months, was there a time when you were not able to pay the mortgage or rent on time?: No At any time in the past 12 months, were you homeless or living in a nursing home (including now)?: No Utilities In the past 12 months has the [employer] gas, oil, or water [employer] threatened to shut off services in your home?: No Russell of Choice Given: Yes Level of Care Discussed: Home Care, Shelter Facility Financial Disclosure Provided: Yes Provider List: Home Care, Shelter Facility Provider list within the patient's requested geographic area shared with the patient/family: Yes within: 20 miles of zip code: [address] Quality and resource use metrics shared with the patient that are relevant to the patient's goals of care and treatment preferences:: Yes Late entry 03/17 0850. Chart reviewed. Patient came to the hospital from home with two of her adult children for epigastric pain. Her pain reportedly started following a pancreatic stent placement which was completed 03/10. She initially presented to [facility] but was a transfer to [facility] following intubation. She is being treated for respiratory failure/PNA/chronic pancreatitis/sepsis.She is being treated with aerosols, IV antibiotics, and vasopressor support.As she is vented/sedated plan was discussed with her daughter Caitie Ferro. At her baseline she is independent in her ADL's with the exception of transport which her family provides. Her DME includes a bipap, shower chair, and 5L NC reportedly from [employer]. Her home oxygen orders will need verified. She is established with her PCP, uses no community resources, and can afford her medications. At this time plan is TBD pending clinical course. I provided SNF/HHC lists for her family to review. Patient has a HCPOA on file which appoints her daughter Caitie hernandez. Her contact number is [phone]. The first alternate is her sister Domonique Banuelos- [phone]. SIGNATURE: Annetta Huynh RN PATIENT NAME: Gracie Banuelos DATE: March 16, 2025 TIME: 2:52 PM [facility] 03-16-2025 Note HNO ID: [id number] Author: TRENTON HECK APRN.IGOR Service: Critical Care Author Type: Nurse Practitioner Type: Procedures Filed: 03/16/2025 14:10 Note Text: BEDSIDE PROCEDURE NOTE CENTRAL LINE INSERTION Date/Start Time: 03/16/2025 1:30 PM Date/Stop Time: 03/16/2025 1:50 PM Performed by: Trenton Heck APRN.RN FACULTY Authorized by: Trenton Heck APRN.RN FACULTY Where was Patient When this Procedure was Performed: Bedside/Unscheduled Procedure Room Informed Consent Consent Obtained: Verbal (Sister Domonique) [place] Protocol A moment to CARE was completed. SIGN IN Personnel directly involved with the procedure wore the appropriate PPE. Special Equipment: Yes Patient/Surrogate Stated/Verified: Patient name, Date of , Relevant allergies and Intended procedure TIME OUT Relevant labs, photos, and/or imaging studies have been reviewed. Intended patient and procedure match source documents. Consent obtained and matches the intended procedure. No correct side/site applicable for marking and visibility. No medications required for procedure. No fire risk assessment and interventions applicable. No implant(s) inserted. Pre-Procedure Details: The area was prepped with chlorhexidine (Chloroprep) and allowed to dry. A sterile full body drape was applied following the usual aseptic technique. [facility] Central Line Insertion Checklist, attached to the Central Line- Associated Bloodstream Infection Prevention policy utilized: Yes Medications: Local Anesthesia (see MAR): Lidocaine 1% Procedure Details: Indication: Vasoactive medication and venous access Patient Position: flat Site: Left internal jugular vein New Stick: The vein was cannulated with direct imaging visualization with an 18 gauge needle.Ultrasound guidance used and image not captured. A 20 cm triple-lumen, 7 Fr, non-tunneled, pressure injectable, antimicrobial catheter was advanced over the guidewire and left in situ while the guidewire was removed. The catheter was secured in place at 20 cm. Securement: Line sutured, occlusive dressing applied, sterile caps on all hubs and sterile dressing applied Assessment: Blood return through all ports, no pneumothorax on x-ray and placement verified by x-ray All catheters, needles, and wires were accounted for and intact Number of Attempts: 1 Successful Placement: yes Post-Procedure Details: Patient Tolerance: Patient tolerated the procedure well with no immediate complications Estimated Blood Loss: none Specimens Sent: none SIGN OUT No specimen collected. All instruments, equipment, possible retained foreign bodies accounted for. The post-procedure POC has been communicated to the patient or surrogate. Post-procedure POC communicated to patient's multidisciplinary team (including bedside nurse for hospitalized patients). SIGNATURE: Trenton Heck APRN.CNP PATIENT NAME: Pako Clarke DATE: March 16, 2025 TIME: 2:07 PM [facility] 03-16-2025 Telephone encounter Note Patient's daughter calls and wanted provider aware that patient is currently at [facility] on a Ventilator. Daughter apologizes for forgetting to cancel appointment yesterday. Daughter states that mother was being put on a ventilator at that time. Eva Martines RN [facility] 03-16-2025 Miscellaneous Notes Patient's daughter calls and wanted provider aware that patient is currently at [facility] on a Ventilator. Daughter apologizes for forgetting to cancel appointment yesterday. Daughter states that mother was being put on a ventilator at that time. Eva Martines RN documented in this encounter [facility] 03-16-2025 Note HNO ID: [id number] Author: GERSON MCCALL MD Service: Critical Care Author Type: Physician Type: Progress Notes Filed: 03/16/2025 09:50 Note Text: PULMONARY/CRITICAL CARE INTENSIVE MEDICAL/SURGICAL CARE UNIT PROGRESS NOTE Patient Name: Gracie Banuelos Account #: Data Unavailable Admission Date: 03/15/2025 Date of Evaluation: 03/16/2025 Time of Evaluation: 9:10 AM SUBJECTIVE VITALS 03/16/25 0830 03/16/25 0845 03/16/25 0853 03/16/25 0900 BP: (!) 72/50 93/52 93/57 94/60 Pulse: 81 89 91 94 Resp: 22 23 22 22 Temp: TempSrc: SpO2: 91% 93% 93% 92% Weight: Height: PHYSICAL EXAM Gen: Alert AND Oriented x 3, No acute distress HEENT: Normocephalic, Atraumatic, Pupils Equally Reactive to light and accomodation, moist mucous membranes, Neck: Supple, no rigidity, Trachea is midline, no Lymphadenopathy Lungs: Clear to Auscultation bilaterally , No wheezing, rhonchi or rales Heart: Regular Rate and Rhythm, Normal S1 and S2, no murmurs Abd: Soft, Nontender and nondistended, Positive Bowel Sounds x all four quadrants Ext: No edema, +2 pulses Neuro: CN II - XII grossly intact, no sensory/motor deficits noted 24 hour Intake AND Output: Intake/Output Summary (Last 24 hours) at 03/16/2025 0924 Last data filed at 03/16/2025 0800 Gross per 24 hour Intake 811 ml Output 1145 ml Net -334 ml INPATIENT MEDICATIONS : Current Facility-Administered Medications Medication Dose Route Frequency iv contrast (radiology procedure) INTRAVENOUS DIRECTED PRN iv contrast (radiology procedure) INTRAVENOUS DIRECTED PRN heparin 5,000 Units injection 5,000 Units SUBCUTANEOUS q 12 H NaCl 0.9% iv flush bag 20 mL INTRAVENOUS PRN fentaNYL 20 mcg/mL iv infusion in NaCl 0.9% 100 mL (SUBLIMAZE) 25-150 mcg/hr INTRAVENOUS CONTINUOUS ipratropium-albuterol 3 mL nebulizer solution (DUONEB) 3 mL INHALATION QID pantoprazole 40 mg injection (PROTONIX) 40 mg INTRAVENOUS DAILY (6 AM) ondansetron 4 mg tab(s) (ZOFRAN) 4 mg ORAL q 6 H PRN Or ondansetron (PF) 4 mg injection (ZOFRAN) 4 mg INTRAVENOUS q 6 H PRN vancomycin dosing and monitoring per pharmacy OTHER As Directed NORepinephrine iv infusion 16 mg in D5W 250 mL (LEVOPHED) 0.6-50 mcg/min INTRAVENOUS CONTINUOUS propofol infusion (DIPRIVAN) 5-60 mcg/kg/min INTRAVENOUS CONTINUOUS midazolam (PF) 2 mg injection (VERSED) 2 mg INTRAVENOUS q 2 H PRN acetaminophen 650 mg CUP (TYLENOL) 650 mg ORAL/FEEDING TUBE q 4 H PRN cefepime 2 g in D5W 100 mL Vial-Bag (MAXIPIME) 2 g INTRAVENOUS q 12 HR vancomycin iv piggyback 1 g in D5W 200 mL (VANCOCIN) 1 g INTRAVENOUS q 12 HR sodium chloride 3% solution 3 mL INHALATION ONLY 3 mL INHALATION QID NaCl 0.9% iv infusion 100 mL/hr INTRAVENOUS CONTINUOUS mupirocin 2 % 0.5 g nasal ointment (BACTROBAN) 0.5 g NASAL BID budesonide 0.5 mg/2 mL 0.5 mg (PULMICORT) 0.5 mg INHALATION BID HOME MEDICATIONS: gabapentin (NEURONTIN) 300 mg capsuleTake 1 capsule by mouth three times a day for 30 days.Disp: 90 capsuleRfl: 0 simvastatin (ZOCOR) 20 mg tabletTake 1 tablet by mouth daily at bedtime.Disp: 30 tabletRfl: 11 colchicine 0.6 mg tabletTake 2 pills x1 now then take 1 tablet BID until goneDisp: 5 tabletRfl: 0 albuterol (PROVENTIL) 2.5 mg /3 mL (0.083 %) nebulizer solutionUse 3 mL via nebulizer one time only for 1 dose. Use over 5-15minutes.Disp: 3 mLRfl: 0 ondansetron orally disintegrating (ZOFRAN ODT) 4 mg disintegrating tabletTake 1 tablet by mouth every 6 hours as needed for nausea/vomiting.Disp: 30 tabletRfl: [address] (PROTONIX) 40 mg tabletTake 1 tablet by mouth once daily.Disp: 90 tabletRfl: 2 metoprolol tartrate, short acting, (LOPRESSOR) 25 mg tabletTake 1 tablet by mouth two times a day.Disp: 180 tabletRfl: 3 amLODIPine (NORVASC) 5 mg tabletTake 1 tablet by mouth once daily.Disp: 30 tabletRfl: 5 hydrOXYzine HCl (ATARAX) 25 mg tabletTake 1 tablet by mouth three times a day as needed for itching/rash.Disp: 90 tabletRfl: 3 MUCINEX D MAXIMUM STRENGTH 120-1,200 mg tab ER 12 hrTake 1 tablet by mouth as needed.Disp: 30 tabletRfl: 0 Cholecalciferol, Vitamin D3, 50 mcg (2,000 unit) capTake 1 capsule by mouth once daily.Disp: 90 capsuleRfl: 2 predniSONE (DELTASONE) 20 mg tabletTake 2 tablets by mouth once daily.Disp: 5 tabletRfl: 0 (Patient not taking: Reported on 11/02/2024) ziprasidone (GEODON) 40 mg capsuleTake 1 capsule by mouth at bedtime as needed.Disp: 30 capsuleRfl: hydrOXYzine pamoate (VISTARIL) 25 mg capsuleTake 1 capsule by mouth daily at bedtime.Disp: 30 capsuleRfl: 11 lisinopril (ZESTRIL) 10 mg tabletTake 1 tablet by mouth once daily.Disp: 30 tabletRfl: 11 Benzonatate 200 mg capsuleTake 200 mg by mouth three times a day as needed.Disp: Rfl: (Patient not taking: Reported on 11/07/2024) Blood Pressure MonitorHome blood pressure monitorDisp: 1 EachRfl: 0 cyclobenzaprine (FLEXERIL) 10 mg tabletTake 1 tablet by mouth twice daily as needed for muscle spasm.Disp: 15 table (more content not included)... [facility] 03-16-2025 Note [facility] 03-16-2025 Note HNO ID: [id number] Author: MAKSIM ANDERSON APRN.RN FACULTY Service: ? Author Type: Nurse Practitioner Type: Progress Notes Filed: 03/16/2025 07:05 Note Text: CRITICAL CARE TRANSPORT MEDICAL CONTROL CONSULT NOTE Patient Name: Gracie Banuelos Service Date: March 16, 2025 Referring Facility: [facility] Accepting Facility: [facility] REASON FOR TRANSPORT: Higher level intensive care services not available at the referring facility REASON FOR CONSULT: Hypotension and Sedation CCT MEDICAL CONTROL CONSULT SUMMARY: History, physical exam findings, and available background patient information from [facility] Transport Nurse were reviewed at the time of consult. Pertinent additional information was reviewed as follows: [facility] transport request log In brief, Gracie Banuelos is a 59 year old female with a history, known at time of consult, significant for Smoking and COPD (5L N/C at home) who was admitted to [facility] for evaluation of Acute on Chronic Pancreatitis s/p pancreatic duct shunt (03/12). On the morning of 03/15, patient started having increasing SOB with an elevated BNP. She was started on BIPAP and diuresed. Patient decompensated this afternoon and was intubated. She was placed on the ventilator A/C VCV Rate 16, TV 450, FIO2 90%, PEEP 12. Precedex was started for sedation. After intubation patient was hypotensive with BP 69/44. She was started on Levophed which was titrated for MAP >65. An ABG was completed with pH 7.26, PaCO2 59.5, PaO2 74.6, HCO3 26.8. Patient is being transferred to [facility] for higher level intensive care services not available at the referring facility. En route, patient continued to be hypotensive with MAP <65. Patient was awake on the ventilator with RASS 0 to +1. PLAN: Multiple factors considered including: patient history/condition/trajectory/sta bility, referring and receiving destinations, duration of transport time, medications and therapies available during transport, patient safety, as well as crew capabilities. Orders given for: Levophed 8mg/250ml IV at 15mcg/min, titrate to MAP 65-75 Vasopressin 20units/100ml IV at 0.04units/min Precedex 400mcg/100ml IV at 0.7mcg/kg/hr, titrate to RASS 0 to -2 Fentanyl 25mcg IVP X3 Plan of care and orders confirmed and read back via telephone with [facility] Transport restaurant hourly team member, Dung Coe, Sound Truck Operator SIGNATURE: Maksim Anderson APRN.[facility] Acute Care Nurse Practitioner Critical Care Transport [facility] 03-16-2025 History of Presen t illness Narrative Images from the original note were not included. CRITICAL CARE TRANSPORT MEDICAL CONTROL CONSULT NOTE Patient Name: Gracie Banuelos Service Date: March 16, 2025 Referring Facility: [facility] Accepting Facility: [facility] REASON FOR TRANSPORT: Higher level intensive care services not available at the referring facility REASON FOR CONSULT: Hypotension and Sedation CCT MEDICAL CONTROL CONSULT SUMMARY: History, physical exam findings, and available background patient information from [facility] Transport Nurse were reviewed at the time of consult. Pertinent additional information was reviewed as follows: [facility] transport request log In brief, Gracie Banuelos is a 59 year old female with a history, known at time of consult, significant for Smoking and COPD (5L N/C at home) who was admitted to [facility] for evaluation of Acute on Chronic Pancreatitis s/p pancreatic duct shunt (03/12). On the morning of 03/15, patient started having increasing SOB with an elevated BNP. She was started on BIPAP and diuresed. Patient decompensated this afternoon and was intubated. She was placed on the ventilator A/C VCV Rate 16, TV 450, FIO2 90%, PEEP 12. Precedex was started for sedation. After intubation patient was hypotensive with BP 69/44. She was started on Levophed which was titrated for MAP >65. An ABG was completed with pH 7.26, PaCO2 59.5, PaO2 74.6, HCO3 26.8. Patient is being transferred to [facility] for higher level intensive care services not available at the referring facility. En route, patient continued to be hypotensive with MAP <65. Patient was awake on the ventilator with RASS 0 to +1. PLAN: Multiple factors considered including: patient history/condition/trajectory/sta bility, referring and receiving destinations, duration of transport time, medications and therapies available during transport, patient safety, as well as crew capabilities. Orders given for: Levophed 8mg/250ml IV at 15mcg/min, titrate to MAP 65-75 Vasopressin 20units/100ml IV at 0.04units/min Precedex 400mcg/100ml IV at 0.7mcg/kg/hr, titrate to RASS 0 to -2 Fentanyl 25mcg IVP X3 Plan of care and orders confirmed and read back via telephone with [facility] Transport restaurant hourly team member, Dung Coe, Sound Truck Operator SIGNATURE: Maksim Anderson APRN.CNP Acute Care Nurse Practitioner Critical Care Transport documented in this encounter [facility] 03-16-2025 Note SARS-COV-2 (AGENT OF COVID-19) RNA: Not detected INFLUENZA A RNA: Not detected INFLUENZA B RNA: Not detected RESPIRATORY SYNCYTIAL VIRUS (RSV) RNA: Not detected [facility] Comment on above: Performed By: #### 5 8410-2 #### [facility] CLIA [id number] [address] [place], [place] [id number] [facility] 03-16-2025 Respiratory pathogens DNA and RNA 12b panel KANDY+probe (Unsp spec) SARS-COV-2 (AGENT OF COVID-19) RNA: Not detected INFLUENZA A RNA: Not detected INFLUENZA B RNA: Not detected RESPIRATORY SYNCYTIAL VIRUS (RSV) RNA: Not detected HUMAN METAPNEUMOVIRUS (HMPV) RNA: Not detected HUMAN RHINOVIRUS/ENTEROVIRUS RNA: Not detected ADENOVIRUS DNA: Not detected PARAINFLUENZA 1 RNA: Not detected PARAINFLUENZA 2 RNA: Not detected PARAINFLUENZA 3 RNA: Not detected PARAINFLUENZA 4 RNA: Not detected CORONAVIRUS 229E RNA: Not detected CORONAVIRUS OC43 RNA: Not detected CORONAVIRUS NL63 RNA: Not detected CORONAVIRUS HKU1 RNA: Not detected CHLAMYDIA PNEUMONIAE DNA: Not detected MYCOPLASMA PNEUMONIAE DNA: Not detected BORDETELLA PERTUSSIS DNA: Not detected BORDETELLA PARAPERTUSSIS DNA: Not detected [facility] Comment on above: Performed By: #### 5 8410-2 #### [facility] CLIA [id number] [address] [place], [place] [id number] [facility] 03-15-2025 Progress note Note Date/Time March 15, 2025 8:39pm [facility] Medical Records Department [address] [place] [address] Progress Note 03/15/252036 MR#: [id number] Acct: [id number] Name: GRACIE BANUELOS Rep #:[id number] : 1965 59 From: Sudhir pace MD PCP: Dr. Misbah Elkins MD Status:ADM I N Location: ICU CVICU20 3-1 Progress Note Attempted central line unsuccessful, good visualization of the jugular vein on the right however could not pass guidewire without hitting a blockage, the wire was retracted and bent. Overall 2 attempts were made both unsuccessful. Will attempt 500 cc fluid bolus given that she was given 80 mg of IV Lasix today to try to support her blood pressure she is currently on 10 of Levophed peripherally. Plan discharge to tertiary center within the hour. 03/15/252038 <Electronically signed by Sudhir Izquierdo MD> Sudhir Izquierdo MD Cosigner Signature (if applicable): CC: ~ Signed [facility] Work Phone: 1(940) 763-864006-18-2025 Progress note Author Sudhir Izquierdo [facility] Note Date/Time March 15, 2025 7:20 pm [facility] Records Department [address] [place] [address] Progress Note 03/15/251917 MR#: [id number] Acct: [id number] Name: GRACIE BANUELOS Rep #:[id number] : 1965 59 From: Sudhir pace MD PCP: Dr. Misbah Elkins MD Status:ADM I N Location: ICU CVICU20 3-1 Progress Note After intubation she was found to be hypoxic so we tried to increase PEEP however this led to some hypotension given her white count as well as the thick sputum during suction I elected to start her on meropenem as well as Levophed though the etiology of her hypotension is difficult to ascertain at the moment, it may be septic shock and I am limited in terms of IV fluids and that she cannot receive any given the pulmonary edema which led to her respiratory failure therefore we will continue with just Levophed. I discussed the case with [facility] who has accepted the patient in transfer and they did indicate that they had beds so it is a possibility of transfer this evening. Will attempt to get further access and may need to place a central line if there is a delay in transfer depending on how well she tolerates peripheral Levophed. Sputum culture was sent and will obtain blood cultures. 03/15/251919 <Electronically signed by Sudhir Izquierdo MD> Sudhir Izquierdo MD Cosigner Signature (if applicable): CC: ~ Signed [facility] Work Phone: 1(472) 758-325706-18-2025 Progress note Author Sudhir Izquierdo [facility] Note Date/Time March 15, 2025 7:17 pm [facility] Medical Records Department [address] [place] [address] Progress Note 03/15/251913 MR#: [id number] Acct: [id number] Name: GRACIE BANUELOS Rep #:[id number] : 1965 59 From: Sudhir pace MD PCP: Dr. Misbah Elkins MD Status:ADM I N Location: ICU CVICU 3-1 Progress Note Intubation Indication: Acute hypoxic and hypercapnic respiratory failure Consent was obtained from: Emergent The patient was placed in the appropriate sniffing position. Preoxygenated sedation via BiPAP was provided for a minimum of 3 minutes. The patient had continuous cardiac as well as pulse oximetry monitoring during the procedure. Procedure sedation was provided by the administration of Precedex and fentanyl. Direct laryngoscopy was then performed using a number GlideScope, which revealeda grade 2B view. A 7.5 mm endotracheal tube was visualized advancing between the cords to the level of 23 cm at the lip. The stylette was then removed and discarded. Tube placement was confirmed by fogging in the tube along with equaland bilateral breath sounds. Colorimetric change was visualized on the CO2 meter. The cuff was then inflated and the tube secured using a commercially available device. A good pulse oximetry waveform was seen on the monitor throughout the procedure. A portable chest x-ray has been ordered to confirm appropriate placement. Given the difficulty of the view, the procedure was a little traumatic leading to bleeding of less than 1 cc. Procedures Hospitalists Procedures: 93970 Insert Emergency Airway 03/15/251916 <Electronically signed by Sudhir Izquierdo MD> Sudhir Izquierdo MD Cosigner Signature (if applicable): CC: ~ Signed [facility] Work Phone: [phone]) 534-679006-18-2025 Progress note Author Sudhir Izquierdo [facility] Note Date/Time March 15, 2025 7:13 pm [facility] Medical Records Department [address] [place] [address] Progress Note 03/15/251911 MR#: [id number] Acct: [id number] Name: GRACIE BANUELOS Rep #:[id number] : 1965 59 From: Sudhir pace MD PCP: Dr. Misbah Elkins MD Status:ADM I N Location: ICU CVICU20 3-1 Progress Note Throughout the day her pCO2 continued to climb despite AVAPS and her pH stayed stable however she started having some altered mentation which is different fromthis morning so we elected to intubate. I discussed the risks and benefits withher sister who agreed with the intubation at this time. She has a chronic respiratory failure with needing 5 L nasal cannula at baseline so she has alwaysbeen concerned that she would need to be intubated especially since she continues to smoke while on oxygen. I attempted to have this conversation with Gracie however she while would open her eyes to stimulation but not carry on a conversation with me. I feel at this time that intubation is emergent. Will also call the [facility] transfer line to change designation to critical care patient to see if this expedites transfer. 03/15/251912 <Electronically signed by Sudhir Izquierdo MD> Sudhir Izquierdo MD Cosigner Signature (if applicable): CC: ~ Signed [facility] Work Phone: 1(687) 508-246206-18-2025 Progress note Author Sudhiralina Izquierdo [facility] Note Date/Time March 15, 2025 7:12 pm [facility] Medical Records Department [address] [place] [address] Progress Note - Hospitalist 03/15/251907 MR#: [id number] Acct: [id number] Name: GRACIE BANUELOS Rep #:[id number] : 1965 59 From: Sudhir pace MD PCP: Dr. Misbah Elkins MD Status:ADM I N Location: ICU CVICU20 3-1 Subjective Subjective Seems to have some respiratory distress this morning likely from volume overloadso we will trial her on a dose of IV Lasix. Chest x-ray does show some pulmonary edema Objective Data Objective Data Vital Signs: Vital Signs Temp Pulse Resp BP Pulse Ox O2 Del Method O2 Flow Rate 97.8 F 92 16 61/50 L 96 Mechanical Ventilator 60 03/15/25 12:00 03/15/25 18:46 03/15/25 18:46 03/15/25 18:46 03/15/25 18:46 03/15/25 18:46 03/15/25 01:34 FiO2 100 03/15/25 18:46 Oxygen Flow Rate (L/min) 60 Oxygen Delivery Method Mechanical Ventilator Weight: 141 lb 1.533 oz Body Mass Index (BMI) 25.0 Intake & Output: Intake and Output for Last 24 Hours 03/14/25 03/15/25 03/16/25 03:59 03:59 03:59 Intake Total 1698.33 / 1698.33 3050 / 3050 670.83 / 670.83 Output Total 1100 / 1100 500 / 500 Balance 1698.33 / 1698.33 1950 / 1950 170.83 / 170.83 Lab / Micro Data 03/15/25 06:20 03/15/25 06:20 Labs: Laboratory Results - last 24 hr 03/15/25 06:13: NT pro BNP II 4257 H 03/15/25 06:20: WBC 20.8 H, RBC 4.15 L, Hgb 10.9 L, Hct 37.1, MCV 89.4, MCH 26.3L, MCHC 29.4 L, RDW Std Deviation 48.1 H, RDW Coeff of Min 14.6, Plt Count 315, MPV 10.1, Immature Gran % (Auto) 3.800 H, Neut % (Auto) 83.6 H, Lymph % (Auto) 5.8 L, Emmons % (Auto) 6.1, Eos % (Auto) 0.3, Baso % (Auto) 0.4, Absolute Neuts (auto) 17.4 H, Absolute Lymphs (auto) 1.20, Nucleated RBC % 0, Sodium 140, Potassium 4.4, Chloride 103, Carbon Dioxide 22.5, Anion Gap 14, BUN 11, Creatinine 0.73, Estim Creat Clear Calc 72.87, Est GFR (MDRD) Non-Af 94, BUN/Creatinine Ratio 15.6, Glucose 83, Calcium 9.4, Total Bilirubin 0.24, AST 18, ALT 24, Alkaline Phosphatase 191 H, Total Protein 6.9, Albumin 3.5, Globulin3.4, Albumin/Globulin Ratio 1.0, Procalcitonin 0.28 H Micro: Microbiology 03/13/25 14:11 Urine, Clean Catch Urine Culture - Final Mixed Gram Positive Organisms ABG Data ABG results: ABG 03/15/25 03/15/25 03/15/25 06:01 07:31 10:46 Specimen Type ART ART ART Sample Site R Brach R Radial R Brach pH 7.17 L* 7.14 L* 7.17 L* Bicarbonate Actual 25.8 26.1 H 28.9 H Total CO2 28 28 31 Base Excess -3 L -3 L 0 O2 Saturation 86 L 92 L 92 L O2 % 92.0 100.0 100.0 ABG pCO2 71.3 H* 75.9 H* 79.1 H* ABG pO2 67 L 85 81 Sergei Test N/A Positive Respiration Rate 16 16 O2 Delivery Device AIRVO BiPAP BiPAP Vent Mode 60L avaps BiLevel Tidal Volume 450.0 450.0 POC PEEP 10 10 Crit Call To/Read Back Yes Yes Yes Blood Gas Notified Whom DR Aleshia Ordonez Blood Gas Notified Time 06:03:13 07:33:57 10:48:00 03/15/25 03/15/25 15:51 17:52 Specimen Type ART ART Sample Site R Brach R Brach pH 7.14 L* 7.19 L* Bicarbonate Actual 28.5 H 29.3 H Total CO2 31 32 Base Excess -1 1 O2 Saturation 88 L 72 L O2 % 100.0 100.0 ABG pCO2 83.5 H* 77.2 H* ABG pO2 74 L 49 L Sergei Test Respiration Rate 16 16 O2 Delivery Device BiPAP Adult Vent Vent Mode Not entered AC Tidal Volume 450.0 400.0 POC PEEP 10 12 Crit Call To/Read Back Yes Yes Blood Gas Notified Whom ROMULO SEBASTIAN Blood Gas Notified Time 15:53:31 17:53:45 Radiography Diagnostic Testing: Radiology Impression Chest X-Ray 03/15/25 06:20 IMPRESSION: Interval appearance of moderate interstitial pulmonary congestion/edema. Interval appearance of minimal bilateral pleural effusions with passive atelectatic airspace disease of the lower lobes. Enlarged cardiac silhouette. [facility]-Ray 03/15/25 17:00 IMPRESSION: As above. Reading Location: [place] [address] Physical Exam Narrative General: Alert, Oriented x3, Cooperative, moderate respiratory distress HEENT: Atraumatic, PERRLA, EOMI, Normocephalic Oral: Moist Mucosa Neck: Supple, No JVD Lungs: Diminished, Normal air movement, No rhonchi, No wheeze, rales, tachypneicthough somewhat conversational on BiPAP Cardiovascular: Regular rate, Regular Rhythm, Normal S1, Normal S2, No murmurs Abdomen: Soft, mildly tender epigastric region, Non-Distended, No Hepato- splenomegaly Extremities: No edema, Capillary Refill Less than 3 Seconds Skin: No rashes, No breakdown Musculoskeletal: No Tenderness to Palpation of Joints or Extremities Neurological: No focal neurological deficits, moves all extremities, Sensory exam intact to light touch and pain Psych/Mental Status: Anxious Assessment & Plan Assessment/Plan (1) Smoking greater than 30 pack years: (2) COPD (chronic obstructive pulmonary disease): QUALIFIERS: COPD type: emphysema Emphysema type: centrilobular Qualified Code(s): J43.2 - Centrilobular emphysema (3) Abdominal pain: (4) Chronic pancreatitis: QUALIFIERS: Pancreatitis type: alcohol induced Qualified Code(s):K86.0 - 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 chronic pancreatitis PLAN: Plan 1. Acute on chronic pancreatitis with acute hypoxic and hypercapnic respiratoryfailure secondary to volume overload from the treatment for her pancreatitis with respiratory acidosis ? She recently had a pancreatic stent placed at an outside facility show she is pending transfer back to [facility] ? Remain n.p.o. ? Will hold IV fluids ? Continue with pain medications ? There was some thought that maybe her leukocytosis was reactive so she is not on any antibiotics, and it is improving therefore we will just continue to monitor ? She was placed on BiPAP and an ABG was obtained at 6:00 this morning which showed a PCO2 of 71 and a pH of 7.17, will trial a dose of IV Lasix and consult pulmonology for assistance ? Will repeat ABG 2. Essential HTN/HLD ? Continue with her home blood pressure medications ? Can hold her statin ? Will monitor and make adjustments as necessary 3. COPD ? Not in exacerbation ? Can continue with her home inhalers 4. Anxiety/depression ? Stable ? Continue with her home medications 5. Neuropathy ? Can hold her gabapentin 6. GERD ? Stable ? Continue with Synthroid DVT: Lovenox Charges/Coding Visit Charges Inpatient E&M: 94071 Subs Hosp L3 03/15/251911 <Electronically signed by Sudhir Izquierdo MD> Edigner Signature (if applicable): CC: ~ Signed [facility] Work Phone: [phone]) 998-324206-18-2025 Radiology Diagnostic study [facility]06-18-2025 Consult note Author Gonzalo Sebastian [facility] Note Date/Time March 15, 2025 11:5 1am [facility] Medical Records Department [address] [place] [address] Consultation - Golf Course Manager 03/15/25819 MR#: [id number] Acct: [id number] Name: GRACIE BANUELOS Rep #:[id number] : 1965 59 From: Gonzalo Sebastian DO PCP: Dr. Misbah Elkins MD Status:ADM I N Location: ICU CVICU20 3-1 Assessment & Plan Assessment/Plan (1) Acute on chronic respiratory failure with hypoxia and hypercapnia: PLAN: Plan RECOMMENDATIONS: 1. Continue AVAPS therapy and obtain follow-up ABG in 2 hours. 2. Stop continuous IV fluids. 3. Agree with administration of diuretics. 4. Continue scheduled bronchodilators. 5. Low threshold for intubation if respiratory status worsens. 6. Awaiting transfer to [facility], pending bed availability. IMPRESSIONS: 1. Acute on chronic combined respiratory failure The patient initially presented to the hospital with worsening abdominal pain inthe setting of acute on chronic pancreatitis following recent pancreatic stent placement. She has a known history of end-stage obstructive lung disease and chronic hypoxemic respiratory failure requiring supplemental oxygen at 5 L/min and noninvasive positive pressure ventilatory support at her baseline. The patient was initially placed on continuous IV fluids on account of her pancreatitis, which I suspect has led to hypervolemia and subsequent pulmonary edema, leading to decompensation in her respiratory status. At the present time, the patient is clinically stable on AVAPS therapy, which will be continued. Will plan to obtain follow-up ABG in 2 hours. The patient is mentating appropriately. In the interim, diuretics will be provided, as tolerated by hemodynamics and renal function. However, I would have a low threshold for intubation, given the patient's limited respiratory reserve. 2. Acute on chronic pancreatitis The patient was recently discharged on Thursday from [facility] following pancreatic stent placement. She presented again with worsening abdominal pain and elevatedlipase and was subsequently placed on supplemental IV fluids, with transfer pending to [facility]. 3. History of hypertension/hyperlipidemia/anxiety/depression/GERD/hypothyroidism/tobacco dependency Complicates care, management, recovery and prognosis. Continue home medicationsas indicated along with supportive care as noted above. This note was generated with [employer] dictation software. It may contain incorrectwords, spelling, and punctuation that were not noted in checking the note beforesigning. HPI Consult Data Date of Consult: 03/15/25 HPI Narrative Reason for Consultation: Acute on chronic combined respiratory failure HPI Narrative: The patient is a 59-year-old female, with a history as outlined below, who presented to the emergency department on March 13 with worsening abdominal pain. The patient has a known history of end-stage COPD on maximum triple therapy inhaler regimen, chronic tobacco dependency and chronic hypoxemic respiratory failure with baseline oxygen requirement of 5 L/min and home use of a noninvasive ventilator. Her medical history is also significant for chronic pancreatitis from prior alcohol use with recent hospitalization at [facility] last week for pancreatic stent placement, performed by Dr. Jane Farrell. The patient was reportedly discharged home 5 days ago only to present to the emergency department once again with worsening epigastric abdominal pain. On presentation to the emergency department, the patient was documented to be afebrile but was notably tachycardic and tachypneic. Laboratory evaluation revealed a white blood cell count of 29,000. Hemoglobin and platelet count werestable. Chemistry profile was unremarkable. Lactate was within normal limits. Lipase was elevated at 378. CT abdomen/pelvis demonstrated a stent in the body of the pancreas with peripancreatic inflammation at the body and head which was new compared to the prior study. A 6 mm right lower lobe pulmonary nodule was also noted. In light of the patient's recent stent placement, the decision was made to proceed with transfer to [facility] for further management. Although the patient was accepted, there was no bed available, which prompted her admission here. The patient was subsequently placed on the progressive careunit with IV fluid hydration and pain control with IV morphine. On the morning of March 15, I was asked to evaluate the patient secondary to worsening respiratory status. ABG obtained on the morning of March 15 demonstrated a pH of 7.17 with a PCO2 of 71 and PO2 of 67. The patient was subsequently placed on AVAPS therapy with follow-up ABG demonstrating a pH of 7.14, PCO2 of 76 and pO2 of 85. The patient is currently documented to be overall net +3.8 L for the hospitalization. Follow-up chest x-ray from this morning demonstrated pulmonary vascular congestion. BNP is elevated at 4257. [facility] Medical History Stenosis of left subclavian [...] 50 mcg PO DAILY SUPPLE MENT 12/29/18 03/13/25 09:00 History mcg (2,000 unit) capsule 50 mcg aripiprazole 5 mg tablet (Abilify) 5 mg PO DAILY mood 01/22/21 03/13/25 09:00 History 5 mg mirtazapine 45 mg tablet 45 mg PO QHS sleep 01/16/22 03/12/25 21:00 History 45 mg metoprolol tartrate 25 mg tablet 25 mg PO BID 30 days #60 tabs 01/05/24 03/13/25 09:00 Rx 25 mg lisinopril 10 mg tablet 10 mg PO QDAY hypertension 0 01/26/24 03/13/25 09:00 History 10 mg albuterol sulfate 90 mcg/actuation 2 puff inhalation Q 4H PRN 05/11/24 03/13/25 09:00 Rx aerosol inhaler (Ventolin HFA) shortness of breath or wheezing 2 puff #18 grams nicotine 14 mg/24 hr daily 1 patch [...] 25 mg tablet 25 mg PO TID antihistamin e 12/23/24 03/12/25 22:00 History 25 mg meloxicam 7.5 mg tablet 7.5 mg PO QDAY pain 12/23/24 Unknown History ondansetron 4 mg disintegrating 4 mg PO Q6 PRN nausea/ vomiting 12/23/24 Unknown History tablet Shower chair #1 ea 12/30/24 Unknown Rx ipratropium 0.5 mg-albuterol 3 mg 3 ml inhalation Q4H shortness of 01/04/25 03/13/25 09:00 Rx (2.5 mg base)/3 mL nebulization breath or wheezing #36 0 mL 3 mL soln gabapentin 300 mg capsule 300 mg PO BID nerve pain 03/13/25 09:00 History 300 mg ondansetron 4 mg disintegrating 4 mg PO Q8H PRN PRN Na usea #12 tabs 02/26/25 Unknown Rx tablet albuterol sulfate 2.5 mg/3 mL 2.5 mg continuous nebuli zation PRN 03/13/25 03/13/25 09:00 History (0.083 %) solution for nebulization COPD 2.5 mg amlodipine 5 mg tablet 5 mg PO DAILY hypertension 0 03/13/25 03/13/25 09:00 History 5 mg pantoprazole 40 mg tablet,delayed 40 mg PO DAILY acid reflux 03/13/25 03/13/25 09:00 History release 40 mg simvastatin 20 mg tablet 20 mg PO QHS high cholestero l 03/13/25 03/12/25 21:00 History 20 mg Allergy/AdvReac Type Severity Reaction Status Date / Time clindamycin Allergy Intermediate Hives Verified 02/26/25 13:57 Penicillins Allergy Hives Verified 02/26/25 13:57 sulfamethoxazole (From Allergy Other Verified 02/26/25 13:57 Bactrim) trimethoprim (From Bactrim) Allergy Other Verified 02/26/25 13:57 hydrocodone (From Rembrandt) AdvReac Itching Verified 02/26/25 13:57 Family History Mother Diabetes Hypertension Heart disease [...] the HPI above. Physical Exam Const alert Constitutional Narrative: Currently tolerating AVAPS. General Appearance: cooperative HEENT normocephalic and head/scalp atraumatic Eyes PERRL and EOMs intact bilaterally Neck supple General: trachea midline Chest inspection of chest normal Resp Auscultation: rales and diminished lung sounds Cardio S1 normal heart sound and S2 normal heart sound Rate: tachycardic GI soft to palpation Extremity no clubbing, cyanosis or edema Skin no rashes or lesions noted Neuro CN's II-XII intact bilaterally and no focal motor deficits Psych Mood & Affect: anxious Lab / Micro Data 03/15/25 06:20 03/15/25 06:20 Labs: Laboratory Results - last 24 hr 03/15/25 06:13: NT pro BNP II 4257 H 03/15/25 06:20: WBC 20.8 H, RBC 4.15 L, Hgb 10.9 L, Hct 37.1, MCV 89.4, MCH 26.3L, MCHC 29.4 L, RDW Std Deviation 48.1 H, RDW Coeff of Min 14.6, Plt Count 315, MPV 10.1, Immature Gran % (Auto) 3.800 H, Neut % (Auto) 83.6 H, Lymph % (Auto) 5.8 L, Emmons % (Auto) 6.1, Eos % (Auto) 0.3, Baso % (Auto) 0.4, Absolute Neuts (auto) 17.4 H, Absolute Lymphs (auto) 1.20, Nucleated RBC % 0, Sodium 140, Potassium 4.4, Chloride 103, Carbon Dioxide 22.5, Anion Gap 14, BUN 11, Creatinine 0.73, Estim Creat Clear Calc 72.87, Est GFR (MDRD) Non-Af 94, BUN/Creatinine Ratio 15.6, Glucose 83, Calcium 9.4, Total Bilirubin 0.24, AST 18, ALT 24, Alkaline Phosphatase 191 H, Total Protein 6.9, Albumin 3.5, Globulin3.4, Albumin/Globulin Ratio 1.0 ABG Data ABG results: ABG 03/15/25 03/15/25 06:01 07:31 Specimen Type ART ART Sample Site R Brach R Radial pH 7.17 L* 7.14 L* Bicarbonate Actual 25.8 26.1 H Total CO2 28 28 Base Excess -3 L -3 L O2 Saturation 86 L 92 L O2 % 92.0 100.0 ABG pCO2 71.3 H* 75.9 H* ABG pO2 67 L 85 Sergei Test N/A Positive Respiration Rate 16 O2 Delivery Device AIRVO BiPAP Vent Mode 60L avaps Tidal Volume 450.0 POC PEEP 10 Crit Call To/Read Back Yes Yes Blood Gas Notified Whom DR Aleshia monk Blood Gas Notified Time 06:03:13 07:33:57 Imaging Radiology Impression Chest X-Ray 03/15/25 06:20 IMPRESSION: Interval appearance of moderate interstitial pulmonary congestion/edema. Interval appearance of minimal bilateral pleural effusions with passive atelectatic airspace disease of the lower lobes. Enlarged cardiac silhouette. Reading Location: [place] [address] Charges/Coding Visit Charges Inpatient E&M: 57456 Init Hosp L3 03/15/25 1151 <Electronically signed by Gonzalo Sebastian DO> Cosigner Signature (if applicable): CC: Dr. Misbah Elkins MD~ Signed [facility] Work Phone: 1([phone]) 222-281806-18-2025 Radiology Diagnostic study [facility]06-17-2025 Progress note Author Sudhir Izquierdo [facility] Note Date/Time March 14, 2025 10:3 6am [facility] Medical Records Department [address] [place] [address] Progress Note - Hospitalist 03/14/25 1025 MR#: [id number] Acct: [id number] Name: GRACIE BANUELOS Rep #:[id number] : 1965 59 From: Sudhir pace MD PCP: Dr. Misbah Elkins MD Status:ADM I N Location: [place] [address] Subjective Subjective No issues overnight, leukocytosis is slowly improving as his lipase Objective Data Objective Data Vital Signs: Vital Signs Temp Pulse Resp BP Pulse Ox O2 Del Method O2 Flow Rate 98.5 F 106 H 20 H 152/70 H 93 Airvo 50 03/14/25 06:25 03/14/25 07:10 03/14/25 07:10 03/14/25 06:25 03/14/25 07:10 03/14/25 07:10 03/14/25 07:10 FiO2 76 03/14/25 07:10 Oxygen Flow Rate (L/min) 50 Oxygen Delivery Method Airvo Weight: 141 lb 1.533 oz Body Mass Index (BMI) 25.0 Intake & Output: Intake and Output for Last 24 Hours 03/13/25 03/14/25 03/15/25 03:59 03:59 03:59 Intake Total 1698.33 / 1698.33 1000 / 1000 Output Total 400 / 400 Balance 1698.33 / 1698.33 600 / 600 Lab / Micro Data 03/14/25 06:34 03/14/25 06:34 Labs: Laboratory Results - last 24 hr 03/13/25 12:16: WBC 29.2 H, RBC 4.17 L, Hgb 11.2 L, Hct 35.9 L, MCV 86.1, MCH 26.9 L, MCHC 31.2 L, RDW Std Deviation 46.1 H, RDW Coeff of Min 14.7 H, Plt Count 277, MPV 10.8, Immature Gran % (Auto) 1.200 H, Neut % (Auto) 83.5 H, Lymph% (Auto) 6.3 L, Emmons % (Auto) 8.1, Eos % (Auto) 0.5, Baso % (Auto) 0.4, AbsoluteNeuts (auto) 24.3 H, Absolute Lymphs (auto) 1.85, Nucleated RBC % 0, Differential Comment SCANNED, Sodium 134, Potassium 3.6, Chloride 92 L, Carbon Dioxide 28.0, Anion Gap 14, BUN 14, Creatinine 0.84, Estim Creat Clear Calc 58.18, Est GFR (MDRD) Non-Af 79, BUN/Creatinine Ratio 16.9, Glucose 100 H, Calcium 9.5, Total Bilirubin 0.49, Direct Bilirubin 0.29, AST 21, ALT 38 H, Alkaline Phosphatase 149 H, Total Protein 7.0, Albumin 3.8, Globulin 3.2, Lipase 378 H 03/13/25 12:32: Lactic Acid < 1.0 03/13/25 12:58: Ethyl Alcohol < 10.1 03/13/25 14:11: Urine Color Straw, Urine Clarity Clear, Urine pH 7.0, Ur Specific [place] 1.005, Urine Protein 30 H, Urine Glucose (UA) Normal, Urine Ketones Negative, Urine Occult Blood Negative, Urine Nitrite Negative, Urine Bilirubin Negative, Urine Urobilinogen Normal, Ur Leukocyte Esterase 100 H, Urine RBC 0-5 SEEN, Urine WBC 5-10 SEEN, Ur Squamous Epith Cells 0-5 SEEN, UrineBacteria 0 SEEN, Urine Mucus 0 SEEN 03/14/25 06:34: WBC 21.9 H, RBC 3.77 L, Hgb 9.9 L, Hct 33.5 L, MCV 88.9, MCH 26.3 L, MCHC 29.6 L D, RDW Std Deviation 48.7 H, RDW Coeff of Min 14.8 H, Plt Count 263, MPV 10.8, Immature Gran % (Auto) 1.300 H, Neut % (Auto) 81.7 H, Lymph% (Auto) 9.0 L, Emmons % (Auto) 6.4, Eos % (Auto) 1.2, Baso % (Auto) 0.4, AbsoluteNeuts (auto) 17.9 H, Absolute Lymphs (auto) 1.97, Nucleated RBC % 0, Sodium 140,Potassium 4.1, Chloride 101, Carbon Dioxide 24.2, Anion Gap 15, BUN 19, Creatinine 0.90, Estim Creat Clear Calc 59.11, Est GFR (MDRD) Non-Af 73, BUN/Creatinine Ratio 20.6 H, Glucose 64 L, Calcium 9.1, Total Bilirubin 0.23, AST22, ALT 29, Alkaline Phosphatase 188 H, Total Protein 6.6, Albumin 3.5, Globulin3.1, Albumin/Globulin Ratio 1.1, Lipase 362 H Radiography Diagnostic Testing: Radiology Impression Abdomen/Pelvis CT 03/13/25 12:22 IMPRESSION: There is a stent in the body of the pancreas extending into the head and 2nd-3rdportion of the duodenum, unchanged. There is peripancreatic inflammation at the body and head, extending into the mesenteric root and right and left pericolic gutter, new compared to the prior. There is no organized or drainable collection. Pancreaticcalcifications are present which are consistent with chronic pancreatitis, predominantly in the head, similar to the prior. There is a 0.6 cm solid pulmonary nodule in the right lung base, image 6/118, unchanged from the February 26, 2025 exam, new compared to the November 04, [address] correlation is recommended. Critical results were discussed with Dr. Rand by Dr. Grover at the time of dictation. Reading Location: [facility] Chest X-Ray 03/13/25 12:40 IMPRESSION: No evidence of acute cardiopulmonary pathology. Reading Location: [facility] Physical Exam Narrative General: Alert, Oriented x3, Cooperative, No apparent distress HEENT: Atraumatic, PERRLA, EOMI, Normocephalic Oral: Moist Mucosa Neck: Supple, No JVD Lungs: Diminished, Normal air movement, No rhonchi, No wheeze, No rales Cardiovascular: Regular rate, Regular Rhythm, Normal S1, Normal S2, No murmurs Abdomen: Soft, mildly tender epigastric region, Non-Distended, No Hepato- splenomegaly Extremities: No edema, Capillary Refill Less than 3 Seconds Skin: No rashes, No breakdown Musculoskeletal: No Tenderness to Palpation of Joints or Extremities Neurological: No focal neurological deficits, Motor Exam 5/5 strength throughout, Sensory exam intact to light touch and pain Psych/Mental Status: Normal Affect, Appropriate Assessment & Plan Assessment/Plan (1) Smoking greater than 30 pack years: (2) COPD (chronic obstructive pulmonary disease): QUALIFIERS: COPD type: emphysema Emphysema type: centrilobular Qualified Code(s): J43.2 - Centrilobular emphysema (3) Abdominal pain: (4) Chronic pancreatitis: QUALIFIERS: Pancreatitis type: alcohol induced Qualified Code(s):K86.0 - 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 chronic pancreatitis PLAN: Plan 1. Acute on chronic pancreatitis ? She recently had a pancreatic stent placed at an outside facility show she is pending transfer back to [facility] ? Remain n.p.o. ? Continue with IV fluids ? Continue with pain medications ? There was some thought that maybe her leukocytosis was reactive so she is not on any antibiotics, and it is improving therefore we will just continue to monitor 2. Essential HTN/HLD ? Continue with her home blood pressure medications ? Can hold her statin ? Will monitor and make adjustments as necessary 3. COPD ? Not in exacerbation ? Can continue with her home inhalers 4. Anxiety/depression ? Stable ? Continue with her home medications 5. Neuropathy ? Can hold her gabapentin 6. GERD ? Stable ? Continue with Synthroid DVT: Lovenox Charges/Coding Visit Charges Inpatient E&M: 50819 Subs Hosp L2 03/14/25 1036 <Electronically signed by Sudhir Izquierdo MD> Cosigner Signature (if applicable): CC: ~ Signed [facility] Work Phone: [phone] 612-104206-17-2025 History and physical note Author Pako Fernández [facility] Note Date/Time March 13, 2025 11:2 8pm [facility] Medical Records Department [address] [place] [address] History & Physical Exam 03/13/25 2320 MR#: [id number] Acct: [id number] Name: GRACIE BANUELOS Rep #:[id number] : 1965 59 From: Pako Fernández MD PCP: Dr. Misbah Elkins MD Status:REG E R Location: ED HPI - General General Date of Admission: 03/13/25 Date of Service: 03/13/25 Chief Complaint: Abdominal pain HPI Narrative GRACIE BANUELOS, is a 59 F who presents to the emergency room with chief complaint of abdominal pain. Patient has significant past medical history of hypertension, hyperlipidemia, COPD on 5 L nasal cannula at baseline, chronic pancreatitis with history of cholecystectomy and appendectomy. Patient states she has chronic pancreatitis secondary to alcohol abuse and has been sober for the past several months. She was recently admitted to [facility] and treated by GI specialist Dr. Portillo. She had a surgery performed for her pancreatitis and a stent was placed this past Thursday. Patient states she has had worsening epigastric abdominal pain since discharge on Thursday. She denies fever, chills, shortness of breath, chest pain, diarrhea constipation or dysuria. Patient has been accepted to [facility] for transferfrom the emergency room, however, a bed is not available this evening and patient will be admitted temporarily in our facility while pending transfer to tertiary care facility to address pancreatic stent and acute pancreatitis. [facility] Medical History Stenosis of left subclavian [...] 30 days #60 tabs 01/05/24 Unknown Rx lisinopril 10 mg tablet 10 mg PO [...] mg PO TID 12/23/24 Unk nown History meloxicam 7.5 mg tablet 7.5 mg PO [...] 3 days #12 01/01/25 Unknown Rx tabs ipratropium 0.5 mg-albuterol 3 mg 3 ml inhalation Q4H shortness of 01/04/25 Unknown Rx (2.5 mg base)/3 mL nebulization breath or wheezing #36 0 mL soln prednisone 20 mg tablet 40 mg (2 x 20 mg) PO DAILY 5 days 01/27/25 Unknown Rx #10 tabs gabapentin 300 mg capsule 300 mg PO BID 02/08/25 Unkno wn History ondansetron 4 mg disintegrating 4 mg PO Q8H PRN PRN Na usea #12 tabs 02/26/25 Unknown Rx tablet tramadol 50 mg tablet 50 mg PO Q6H PRN PRN Pain 3 days 02/26/25 Unknown Rx #12 tabs albuterol sulfate 2.5 mg/3 mL mg 03/13/25 Unknown Hist ory (0.083 %) solution for nebulization amlodipine 5 mg tablet 5 mg PO DAILY 03/13/25 Unkno wn History pantoprazole 40 mg tablet,delayed 40 mg PO DAILY 03/13 Unknown History release simvastatin 20 mg tablet 20 mg PO QHS 03/13/25 Unknow n History Allergy/AdvReac Type Severity Reaction Status Date / Time clindamycin Allergy Intermediate Hives Verified 02/26/25 13:57 Penicillins Allergy Hives Verified 02/26/25 13:57 sulfamethoxazole (From Allergy Other Verified 02/26/25 13:57 Bactrim) trimethoprim (From Bactrim) Allergy Other Verified 02/26/25 13:57 hydrocodone (From Rembrandt) AdvReac Itching Verified 02/26/25 13:57 Family History Mother Diabetes Hypertension Heart disease [...] type: does not use caffeine: Yes ROS Constitutional Constitutional: Denies chills or fever(s) Eyes Eyes: Denies blurry vision ENT HEENT: Denies abnormal hearing Cardiovascular Cardiovascular: Denies chest pain Respiratory/Chest Respiratory/Chest: Reports shortness of breath with exertion Gastrointestinal Gastrointestinal: Reports abdominal pain Genitourinary Genitourinary: Denies dysuria Musculoskeletal Musculoskeletal: Denies back pain Integumentary Integumentary: Denies dry skin Neurologic Neurologic: Denies abnormal gait Psychiatric Psychiatric: Denies depression Vital Signs Vital Signs Vital Signs: 03/13/25 11:02 03/13/25 13:00 03/13/25 14:00 Temperature 98.3 F 98.4 F 98.1 F Temperature Source Oral Oral Oral Pulse Rate 124 H 97 109 H Respiratory Rate 20 H 15 19 H Blood Pressure 103/72 130/65 H 162/77 H Blood Pressure Mean 82 86 105 Pulse Ox 91 100 100 Oxygen Delivery Method Nasal Cannula Room Air Nasal Cannula Oxygen Flow Rate (L/min) 5 03/13/25 15:00 03/13/25 16:00 03/13/25 17:00 Temperature 98.6 F 98.2 F 97.9 F Temperature Source Oral Oral Oral Pulse Rate 104 H 94 93 Respiratory Rate 22 H 17 19 H Blood Pressure 112/61 135/58 H 105/59 L Blood Pressure Mean 78 83 74 Pulse Ox 94 95 96 Oxygen Delivery Method Nasal Cannula Nasal Cannula Nasal Cannula Oxygen Flow Rate (L/min) 03/13/25 19:00 03/13/25 20:30 03/13/25 21:00 Temperature Temperature Source Pulse Rate 70 80 113 H Respiratory Rate 20 H 15 22 H Blood Pressure 164/60 H 116/67 Blood Pressure Mean 94 83 Pulse Ox 96 89 Oxygen Delivery Method Room Air Nasal Cannula Oxygen Flow Rate (L/min) 6 03/13/25 21:29 03/13/25 23:00 Temperature Temperature Source Pulse Rate 111 H 107 H Respiratory Rate 20 H 17 Blood Pressure 116/67 125/60 H Blood Pressure Mean 83 81 Pulse Ox 91 87 Oxygen Delivery Method High Flow Nasal Cannula Oxygen Flow Rate (L/min) 8 8 Weight Weight: 131 lb 11.2 oz Body Mass Index (BMI) 23.3 Physical Exam Const alert General Appearance: cooperative and well developed HEENT normocephalic Eyes PERRL Neck no lymphadenopathy Lymph Lymphatic: no lymphadenopathy noted Resp normal respiratory effort, normal air movement and clear to auscultation bilaterally Cardio regular rate, regular rhythm, S1 normal heart sound and S2 normal heart sound GI Inspection: abdominal distention Palpation: tender epigastric Extremity normal capillary refill Skin General Skin Exam: no breakdown Neuro no focal motor deficits and no sensory deficits noted Psych cooperative and affect normal Results Lab / Micro Data 03/13/25 12:16 03/13/25 12:16 Labs: Laboratory Results - last 24 hr 03/13/25 12:16: WBC 29.2 H, RBC 4.17 L, Hgb 11.2 L, Hct 35.9 L, MCV 86.1, MCH 26.9 L, MCHC 31.2 L, RDW Std Deviation 46.1 H, RDW Coeff of Min 14.7 H, Plt Count 277, MPV 10.8, Immature Gran % (Auto) 1.200 H, Neut % (Auto) 83.5 H, Lymph% (Auto) 6.3 L, Emmons % (Auto) 8.1, Eos % (Auto) 0.5, Baso % (Auto) 0.4, AbsoluteNeuts (auto) 24.3 H, Absolute Lymphs (auto) 1.85, Nucleated RBC % 0, Differential Comment SCANNED, Sodium 134, Potassium 3.6, Chloride 92 L, Carbon Dioxide 28.0, Anion Gap 14, BUN 14, Creatinine 0.84, Estim Creat Clear Calc 58.18, Est GFR (MDRD) Non-Af 79, BUN/Creatinine Ratio 16.9, Glucose 100 H, Calcium 9.5, Total Bilirubin 0.49, Direct Bilirubin 0.29, AST 21, ALT 38 H, Alkaline Phosphatase 149 H, Total Protein 7.0, Albumin 3.8, Globulin 3.2, Lipase 378 H 03/13/25 12:32: Lactic Acid < 1.0 03/13/25 12:58: Ethyl Alcohol < 10.1 03/13/25 14:11: Urine Color Straw, Urine Clarity Clear, Urine pH 7.0, Ur Specific [place] 1.005, Urine Protein 30 H, Urine Glucose (UA) Normal, Urine Ketones Negative, Urine Occult Blood Negative, Urine Nitrite Negative, Urine Bilirubin Negative, Urine Urobilinogen Normal, Ur Leukocyte Esterase 100 H, Urine RBC 0-5 SEEN, Urine WBC 5-10 SEEN, Ur Squamous Epith Cells 0-5 SEEN, UrineBacteria 0 SEEN, Urine Mucus 0 SEEN Imaging Radiology Impression Abdomen/Pelvis CT 03/13/25 12:22 IMPRESSION: There is a stent in the body of the pancreas extending into the head and 2nd-3rdportion of the duodenum, unchanged. There is peripancreatic inflammation at the body and head, extending into the mesenteric root and right and left pericolic gutter, new compared to the prior. There is no organized or drainable collection. Pancreaticcalcifications are present which are consistent with chronic pancreatitis, predominantly in the head, similar to the prior. There is a 0.6 cm solid pulmonary nodule in the right lung base, image 6/118, unchanged from the February 26, 2025 exam, new compared to the November 04, [address] correlation is recommended. Critical results were discussed with Dr. Rand by Dr. Grover at the time of dictation. Reading Location: [facility] Chest X-Ray 03/13/25 12:40 IMPRESSION: No evidence of acute cardiopulmonary pathology. Reading Location: [id number] Assessment & Plan Assessment/Plan (1) Smoking greater than 30 pack years: (2) COPD (chronic obstructive pulmonary disease): QUALIFIERS: COPD type: emphysema Emphysema type: centrilobular Qualified Code(s): J43.2 - Centrilobular emphysema (3) Abdominal pain: (4) Chronic pancreatitis: QUALIFIERS: Pancreatitis type: alcohol induced Qualified Code(s):K86.0 - 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 chronic pancreatitis PLAN: Plan 1. Acute on chronic pancreatitis?admit patient temporarily to our facility pending transfer to [facility], make n.p.o., IV normal saline at a rate of 125 cc/h, morphine 2 to 4 mg every 3 hours as needed pain. Transfer patient as soon as bed is available, repeat CBC, CMP, lipase in a.m. 2. Leukocytosis with left shift?patient is currently afebrile will monitor as she has just had a stent placed this past Thursday and suspect some of this may bereactive change to that procedure 3. COPD continue routine inhalation medications and 5 L nasal cannula which shehas been on routinely 4. DVT prophylaxis?low molecular weight heparin 03/13/257 <Electronically signed by Pako Fernández MD> Cosigner Signature (if applicable): CC: Dr. Misbah Elkins MD; Dr. Pako Fernández MD~ Signed [facility] Work Phone: [phone] Discharge summary Author Macario Zhanggett [facility] Note Date/Time March 13, 2025 11:1 5pm [facility] Medical Records Department [address] [place] [address] Emergency Department Summary 03/13/25 MR#: [id number] Acct: [id number] Name: GRACIE BANUELOS Rep #:[id number] : 1965 59 From: Macario mccain DO PCP: Dr. Misbah Elkins MD Status:REG E R Location: ED ADDENDUM by Dr. Rica Doe DO on 03/13/25 at 2315 Care of patient turned over to me awaiting transfer to [facility] for abdominal pain and pancreatitis. Patient had more abdominal discomfort while awaiting transfer and I did give her 4 mg of morphine and 4 mg of Zofran. Patient also walked to the bathroom and back and became hypoxic on her oxygen. She has history of COPD. I did give her a DuoNeb aerosol. [facility] was contacted and they will not have a bed available today and I was asked to admit the patient to our facility until a bed becomes available. Spokewith Dr. Pako Fernández who will see patient for admission. 03/13/25 9602<Electronically signed by Rica Doe DO> Cosigner Signature (if applicable): cc: Dr. Misbah Elkins MD ~* Signed HPI History of Present Illness Chief Complaint: Abd Pain Narrative Narrative: Chief complaint and HPI: Epigastric abdominal pain. 59-year-old female with past medical history of HTN, HLD, COPD on 5 L nasal cannula baseline, chronic pancreatitis with history of cholecystectomy and appendectomy presents for evaluation of epigastric abdominal pain. Patient states she has history of pancreatitis secondary to alcohol abuse. States she has been sober for the pastseveral months. She states she had a recent admission at [facility] in which she wasseen by a GI specialist Dr. Garrido. She states she had a pain surgery performed for her pancreatitis recently as well as a pancreatic stent placed on Thursday. Patient states since Thursday she has had worsening epigastric abdominal pain. She denies any fever, chills, shortness of breath, chest pain, diarrhea,constipation, dysuria. Patient states she has a chronic cough. Review of systems: See HPI Medications: As listed on the chart Allergies: As listed on the chart PFSH: Per chart Vital signs: As listed on the chart. Reviewed. Physical exam: Gen: A&O x3, NAD Head: Normocephalic, atraumatic Eyes: No sclera icterus, conjunctiva clear ENT: Moist mucous membranes Neck: Trachea midline, No JVD CV: RRR, no murmurs, no peripheral edema Resp: Lungs CTA BL, no w/r/c, on baseline 5 L nasal NC GI: Abd soft, non-distended, tender to palpation in the epigastrium, voluntary guarding, no rebound or rigidity : No CVA tenderness Musc: Full ROM, no deformity Skin: Warm, dry Neuro: Alert, oriented, grossly intact, sensation intact Psych: Cooperative, appropriate mood and affect PFSH PFSH Medical History Stenosis of left subclavian artery [...] mg PO TID 12/23/24 Unk nown History meloxicam 7.5 mg tablet 7.5 mg PO [...] 3 days #12 01/01/25 Unknown Rx tabs ipratropium 0.5 mg-albuterol 3 mg 3 ml inhalation Q4H shortness of 01/04/25 Unknown Rx (2.5 mg base)/3 mL nebulization breath or wheezing #36 0 mL soln prednisone 20 mg tablet 40 mg (2 x 20 mg) PO DAILY 5 days 01/27/25 Unknown Rx #10 tabs gabapentin 300 mg capsule 300 mg PO BID 02/08/25 Unkno wn History ondansetron 4 mg disintegrating 4 mg PO Q8H PRN PRN Na usea #12 tabs 02/26/25 Unknown Rx tablet tramadol 50 mg tablet 50 mg PO Q6H PRN PRN Pain 3 days 02/26/25 Unknown Rx #12 tabs Allergy/AdvReac Type Severity Reaction Status Date / Time clindamycin Allergy Intermediate Hives Verified 02/26/25 13:57 Penicillins Allergy Hives Verified 02/26/25 13:57 sulfamethoxazole (From Allergy Other Verified 02/26/25 13:57 Bactrim) trimethoprim (From Bactrim) Allergy Other Verified 02/26/25 13:57 hydrocodone (From Rembrandt) AdvReac Itching Verified 02/26/25 13:57 Family History Mother Diabetes Hypertension Heart disease [...] use type: does not use caffeine: Yes EXAM Physical Exam Const Vital Signs: 03/13/25 11:02 03/13/25 13:00 03/13/25 14:00 Temperature 98.3 F 98.4 F 98.1 F Temperature Source Oral Oral Oral Pulse Rate 124 H 97 109 H Respiratory Rate 20 H 15 19 H Blood Pressure 103/72 130/65 H 162/77 H Blood Pressure Mean 82 86 105 Pulse Ox 91 100 100 Oxygen Delivery Method Nasal Cannula Room Air Nasal Cannula Oxygen Flow Rate (L/min) 5 03/13/25 15:00 03/13/25 16:00 Temperature 98.6 F 98.2 F Temperature Source Oral Oral Pulse Rate 104 H 94 Respiratory Rate 22 H 17 Blood Pressure 112/61 135/58 H Blood Pressure Mean 78 83 Pulse Ox 94 95 Oxygen Delivery Method Nasal Cannula Nasal Cannula Oxygen Flow Rate (L/min) MDM MDM MDM Narrative Medical decision making narrative: 59-year-old female with past medical history of HTN, HLD, COPD on 5 L nasal cannula baseline, chronic pancreatitis with history of cholecystectomy and appendectomy presents for evaluation of epigastric abdominal pain. Patient states that she had a pancreatic stent placed on Thursday with Dr. Garrido at [facility]. Differential diagnosis includes but is not limited to acute pancreatitis, chronic pancreatitis, pseudocyst, pancreatic necrosis, electrolyteabnormality, CHUY, UTI. Patient is on her baseline 5 L nasal cannula without shortness of breath or chest pain however given her chronic cough will get chestx-ray to assess for pneumonia given recent procedure. I did try to [facility] the patient multiple times to obtain her record however could not get the website to work. CBC shows leukocytosis of 29.2. On chart review, she has had leukocytosis in the past periodically in the 20s. Patient has anemia with hemoglobin 11.2. On chart review, she has a history of anemia. Platelet count unremarkable. CMP unremarkable without significant electrolyte abnormality or CHUY. Patient does have mild ALT elevation at 38. AST unremarkable. No hyperbilirubinemia. Lipase elevated at 378. UA negative for nitrites but positive for leuk esterase. 5-10 WBCs but no bacteria. Not consistent with a true UTI however will send for culture. Patient not endorsing any dysuria. Alcohol level unremarkable. Chest x-ray personally viewed interpreted by me, ED physician, no pneumonia, effusion, cardiomegaly, pneumothorax. Radiology in agreement. CT of the abdomen pelvis shows a stent in the body of the pancreas ascending into the Abby and 2nd/3rd portion of the duodenum, unchanged. There is. Pancreatic inflammation at the body of the head, extending into the mesenteric root in the right left paracolic gutter, new compared to previous exam. No organized or drainable collection. Pancreatic calcifications consistent with chronic pancreatitis. 0.6 cm solid pulmonary nodule in the right lung base, unchanged from February. New compared to October. Recommend CT chest for further evaluation. At this point in time I do not think there is anyemergent need for CT chest. Patient has acute on chronic pancreatitis. On reevaluation she is still having abdominal pain, more morphine ordered. Patientwill warrant admission for her intractable pain secondary to pancreatitis. I did speak with the hospitalist service who recommended transfer given patient recently had stent. Patient originally states she does not want to be transferred but then is in agreement. We reached out to [facility], they have no record of the patient. Patient was informed of this and now states she cannot care at [facility]. Reached out to the transfer line at [facility]. I spoke with Dr. Pascual BENÍTEZ who accepted admission for transfer. States patient had an ERCP with stent placed. At this point in time, no clear etiology for patient's leukocytosis although I suspect that it is likely reactive to her pancreatitis. No need for antibiotics at this time per Dr. Garner. Patient will be transferred. Patient was updated on the results and from understand the plan. Impression: 1. Acute on chronic pancreatitis, postoperative from ERCP and stent placement 2. Anemia Lab Data Labs: Laboratory Results - last 24 hr 03/13/25 03/13/25 03/13/25 12:16 12:32 12:58 WBC 29.2 H RBC 4.17 L Hgb 11.2 L Hct 35.9 L MCV 86.1 MCH 26.9 L MCHC 31.2 L RDW Std Deviation 46.1 H RDW Coeff of Min 14.7 H Plt Count 277 MPV 10.8 Immature Gran % (Auto) 1.200 H Neut % (Auto) 83.5 H Lymph % (Auto) 6.3 L Emmons % (Auto) 8.1 Eos % (Auto) 0.5 Baso % (Auto) 0.4 Absolute Neuts (auto) 24.3 H Absolute Lymphs (auto) 1.85 Nucleated RBC % 0 Differential Comment SCANNED Sodium 134 Potassium 3.6 Chloride 92 L Carbon Dioxide 28.0 Anion Gap 14 BUN 14 Creatinine 0.84 Estim Creat Clear Calc 58.18 Est GFR (MDRD) Non-Af 79 BUN/Creatinine Ratio 16.9 Glucose 100 H Lactic Acid < 1.0 Calcium 9.5 Total Bilirubin 0.49 Direct Bilirubin 0.29 AST 21 ALT 38 H Alkaline Phosphatase 149 H Total Protein 7.0 Albumin 3.8 Globulin 3.2 Lipase 378 H Urine Color Urine Clarity Urine pH Ur Specific [place] Urine Protein Urine Glucose (UA) Urine Ketones Urine Occult Blood Urine Nitrite Urine Bilirubin Urine Urobilinogen Ur Leukocyte Esterase Urine RBC Urine WBC Ur Squamous Epith Cells Urine Bacteria Urine Mucus Ethyl Alcohol < 10.1 03/13/25 14:11 WBC RBC Hgb Hct MCV MCH MCHC RDW Std Deviation RDW Coeff of Min Plt Count MPV Immature Gran % (Auto) Neut % (Auto) Lymph % (Auto) Emmons % (Auto) Eos % (Auto) Baso % (Auto) Absolute Neuts (auto) Absolute Lymphs (auto) Nucleated RBC % Differential Comment Sodium Potassium Chloride Carbon Dioxide Anion Gap BUN Creatinine Estim Creat Clear Calc Est GFR (MDRD) Non-Af BUN/Creatinine Ratio Glucose Lactic Acid Calcium Total Bilirubin Direct Bilirubin AST ALT Alkaline Phosphatase Total Protein Albumin Globulin Lipase Urine Color Straw Urine Clarity Clear Urine pH 7.0 Ur Specific [place] 1.005 Urine Protein 30 H Urine Glucose (UA) Normal Urine Ketones Negative Urine Occult Blood Negative Urine Nitrite Negative Urine Bilirubin Negative Urine Urobilinogen Normal Ur Leukocyte Esterase 100 H Urine RBC 0-5 SEEN Urine WBC 5-10 SEEN Ur Squamous Epith Cells 0-5 SEEN Urine Bacteria 0 SEEN Urine Mucus 0 SEEN Ethyl Alcohol Radiography Diagnostic Testing: Clinical Impression(s) from Imaging Studies Abdomen/Pelvis CT 03/13/25 12:22 IMPRESSION: There is a stent in the body of the pancreas extending into the head and 2nd-3rdportion of the duodenum, unchanged. There is peripancreatic inflammation at the body and head, extending into the mesenteric root and right and left pericolic gutter, new compared to the prior. There is no organized or drainable collection. Pancreaticcalcifications are present which are consistent with chronic pancreatitis, predominantly in the head, similar to the prior. There is a 0.6 cm solid pulmonary nodule in the right lung base, image 6/118, unchanged from the February 26, 2025 exam, new compared to the November 04, [address] correlation is recommended. Critical results were discussed with Dr. Rand by Dr. Grover at the time of dictation. Reading Location: [facility] Chest X-Ray 03/13/25 12:40 IMPRESSION: No evidence of acute cardiopulmonary pathology. Reading Location: [id number] Discharge Plan Triage Chief Complaint: Abd Pain ED Provider: Macario Alex Dx/Rx/DC Orders Prescriptions: No Action mirtazapine 45 mg tablet 45 mg PO QHS amlodipine 10 mg tablet 5 mg PO DAILY Rx Instructions: Hold for SBP less than 130 mmHg lisinopril 10 mg tablet 10 mg PO QDAY albuterol sulfate [Ventolin HFA] 90 mcg/actuation HFA aerosol inhaler 2 puff INHALATION Q4H PRN (Reason: shortness of breath or wheezing) Qty: 18 11RF gabapentin 300 mg capsule 300 mg PO BID meloxicam 7.5 mg tablet 7.5 mg PO QDAY ondansetron 4 mg tablet,disintegrating 4 mg PO Q6 PRN (Reason: nausea/vomiting) hydroxyzine HCl 25 mg tablet 25 mg PO TID Breztri Aerosphere 160-9-4.8 mcg/actuation HFA aerosol inhaler [...] Q6H PRN (Reason: pain) Qty: 12 0RF tramadol 50 mg tablet 50 mg PO Q6H PRN (Reason: pain) 3 Days Qty: 12 0RF prednisone 20 mg tablet 40 mg PO DAILY 5 Days Qty: 10 0RF ondansetron 4 mg tablet,disintegrating 4 mg PO Q8H PRN PRN (Reason: Nausea) Qty: 12 0RF tramadol 50 mg tablet 50 mg PO Q6H PRN PRN (Reason: Pain) 3 Days Qty: 12 0RF nicotine 14 mg/24 hr patch 24 hour 1 patch transdermal ONCE Qty: 28 1RF guaifenesin 100 mg/5 mL liquid 200 mg PO Q4H PRN (Reason: congestion) Qty: 473 0RF (DME) Shower chair See Rx Instructions .Route .MEDSUPPLY Qty: 1 0RF Rx Instructions: As directed ipratropium-albuterol 0.5 mg-3 mg(2.5 mg base)/3 mL solution for nebulization 3 ml inhalation Q4H Qty: 360 11RF Primary Care Provider: Misbah Elkins Referrals: Misbah Elkins MD [Primary Care Provider] - Print Language: Uruguayan What to do if you have Problems For any increased pain, shortness of breath, bleeding, nausea or vomiting, chestpain, or any unexpected problems, contact your Primary Care Provider. Call [facility] ([phone]) or report to the closest Emergency Room. Call 911 if necessary. 03/13/25 1716 <Electronically signed by Macario Alex DO> Cosigner Signature (if applicable): CC: Dr. Misbah Elkins MD ~ Signed [facility] Work Phone: 1(460) 770-477906-16-2025 [facility]06-16-2025 Discharge summary Author Macario Alex [facility] Note Date/Time March 13, 2025 11:1 5pm [facility] Medical Records Department [address] [place] [address] Emergency Department Summary 03/13/25 MR#: [id number] Acct: [id number] Name: GRACIE BANUELOS Salvatore Rep #:[id number] : 1965 59 From: Macario mccain DO PCP: Dr. Misbah Elkins MD Status:REG E R Location: ED ADDENDUM by Dr. Rica Doe DO on 03/13/25 at 2315 Care of patient turned over to me awaiting transfer to [facility] for abdominal pain and pancreatitis. Patient had more abdominal discomfort while awaiting transfer and I did give her 4 mg of morphine and 4 mg of Zofran. Patient also walked to the bathroom and back and became hypoxic on her oxygen. She has history of COPD. I did give her a DuoNeb aerosol. [facility] was contacted and they will not have a bed available today and I was asked to admit the patient to our facility until a bed becomes available. Spokewith Dr. Pako Fernández who will see patient for admission. 03/13/25 2315<Electronically signed by Rica Doe DO> Cosigner Signature (if applicable): cc: Dr. Misbah Elkins MD ~* Signed HPI History of Present Illness Chief Complaint: Abd Pain Narrative Narrative: Chief complaint and HPI: Epigastric abdominal pain. 59-year-old female with past medical history of HTN, HLD, COPD on 5 L nasal cannula baseline, chronic pancreatitis with history of cholecystectomy and appendectomy presents for evaluation of epigastric abdominal pain. Patient states she has history of pancreatitis secondary to alcohol abuse. States she has been sober for the pastseveral months. She states she had a recent admission at [facility] in which she wasseen by a GI specialist Dr. Garrido. She states she had a pain surgery performed for her pancreatitis recently as well as a pancreatic stent placed on Thursday. Patient states since Thursday she has had worsening epigastric abdominal pain. She denies any fever, chills, shortness of breath, chest pain, diarrhea,constipation, dysuria. Patient states she has a chronic cough. Review of systems: See HPI Medications: As listed on the chart Allergies: As listed on the chart PFSH: Per chart Vital signs: As listed on the chart. Reviewed. Physical exam: Gen: A&O x3, NAD Head: Normocephalic, atraumatic Eyes: No sclera icterus, conjunctiva clear ENT: Moist mucous membranes Neck: Trachea midline, No JVD CV: RRR, no murmurs, no peripheral edema Resp: Lungs CTA BL, no w/r/c, on baseline 5 L nasal NC GI: Abd soft, non-distended, tender to palpation in the epigastrium, voluntary guarding, no rebound or rigidity : No CVA tenderness Musc: Full ROM, no deformity Skin: Warm, dry Neuro: Alert, oriented, grossly intact, sensation intact Psych: Cooperative, appropriate mood and affect [facility] Medical History Stenosis of left subclavian artery [...] mg PO TID 12/23/24 Unk nown History meloxicam 7.5 mg tablet 7.5 mg PO [...] 3 days #12 01/01/25 Unknown Rx tabs ipratropium 0.5 mg-albuterol 3 mg 3 ml inhalation Q4H shortness of 01/04/25 Unknown Rx (2.5 mg base)/3 mL nebulization breath or wheezing #36 0 mL soln prednisone 20 mg tablet 40 mg (2 x 20 mg) PO DAILY 5 days 01/27/25 Unknown Rx #10 tabs gabapentin 300 mg capsule 300 mg PO BID 02/08/25 Unkno wn History ondansetron 4 mg disintegrating 4 mg PO Q8H PRN PRN Na usea #12 tabs 02/26/25 Unknown Rx tablet tramadol 50 mg tablet 50 mg PO Q6H PRN PRN Pain 3 days 02/26/25 Unknown Rx #12 tabs Allergy/AdvReac Type Severity Reaction Status Date / Time clindamycin Allergy Intermediate Hives Verified 02/26/25 13:57 Penicillins Allergy Hives Verified 02/26/25 13:57 sulfamethoxazole (From Allergy Other Verified 02/26/25 13:57 Bactrim) trimethoprim (From Bactrim) Allergy Other Verified 02/26/25 13:57 hydrocodone (From Rembrandt) AdvReac Itching Verified 02/26/25 13:57 Family History Mother Diabetes Hypertension Heart disease [...] use type: does not use caffeine: Yes EXAM Physical Exam Const Vital Signs: 03/13/25 11:02 03/13/25 13:00 03/13/25 14:00 Temperature 98.3 F 98.4 F 98.1 F Temperature Source Oral Oral Oral Pulse Rate 124 H 97 109 H Respiratory Rate 20 H 15 19 H Blood Pressure 103/72 130/65 H 162/77 H Blood Pressure Mean 82 86 105 Pulse Ox 91 100 100 Oxygen Delivery Method Nasal Cannula Room Air Nasal Cannula Oxygen Flow Rate (L/min) 5 03/13/25 15:00 03/13/25 16:00 Temperature 98.6 F 98.2 F Temperature Source Oral Oral Pulse Rate 104 H 94 Respiratory Rate 22 H 17 Blood Pressure 112/61 135/58 H Blood Pressure Mean 78 83 Pulse Ox 94 95 Oxygen Delivery Method Nasal Cannula Nasal Cannula Oxygen Flow Rate (L/min) MDM MDM MDM Narrative Medical decision making narrative: 59-year-old female with past medical history of HTN, HLD, COPD on 5 L nasal cannula baseline, chronic pancreatitis with history of cholecystectomy and appendectomy presents for evaluation of epigastric abdominal pain. Patient states that she had a pancreatic stent placed on Thursday with Dr. Garrido at [facility]. Differential diagnosis includes but is not limited to acute pancreatitis, chronic pancreatitis, pseudocyst, pancreatic necrosis, electrolyteabnormality, CHUY, UTI. Patient is on her baseline 5 L nasal cannula without shortness of breath or chest pain however given her chronic cough will get chestx-ray to assess for pneumonia given recent procedure. I did try to [facility] the patient multiple times to obtain her record however could not get the website to work. CBC shows leukocytosis of 29.2. On chart review, she has had leukocytosis in the past periodically in the 20s. Patient has anemia with hemoglobin 11.2. On chart review, she has a history of anemia. Platelet count unremarkable. CMP unremarkable without significant electrolyte abnormality or CHUY. Patient does have mild ALT elevation at 38. AST unremarkable. No hyperbilirubinemia. Lipase elevated at 378. UA negative for nitrites but positive for leuk esterase. 5-10 WBCs but no bacteria. Not consistent with a true UTI however will send for culture. Patient not endorsing any dysuria. Alcohol level unremarkable. Chest x-ray personally viewed interpreted by me, ED physician, no pneumonia, effusion, cardiomegaly, pneumothorax. Radiology in agreement. CT of the abdomen pelvis shows a stent in the body of the pancreas ascending into the Abby and 2nd/3rd portion of the duodenum, unchanged. There is. Pancreatic inflammation at the body of the head, extending into the mesenteric root in the right left paracolic gutter, new compared to previous exam. No organized or drainable collection. Pancreatic calcifications consistent with chronic pancreatitis. 0.6 cm solid pulmonary nodule in the right lung base, unchanged from February. New compared to October. Recommend CT chest for further evaluation. At this point in time I do not think there is anyemergent need for CT chest. Patient has acute on chronic pancreatitis. On reevaluation she is still having abdominal pain, more morphine ordered. Patientwill warrant admission for her intractable pain secondary to pancreatitis. I did speak with the hospitalist service who recommended transfer given patient recently had stent. Patient originally states she does not want to be transferred but then is in agreement. We reached out to [facility], they have no record of the patient. Patient was informed of this and now states she cannot care at [facility]. Reached out to the transfer line at [facility]. I spoke with Dr. Pascual BENÍTEZ who accepted admission for transfer. States patient had an ERCP with stent placed. At this point in time, no clear etiology for patient's leukocytosis although I suspect that it is likely reactive to her pancreatitis. No need for antibiotics at this time per Dr. Garner. Patient will be transferred. Patient was updated on the results and from understand the plan. Impression: 1. Acute on chronic pancreatitis, postoperative from ERCP and stent placement 2. Anemia Lab Data Labs: Laboratory Results - last 24 hr 03/13/25 03/13/25 03/13/25 12:16 12:32 12:58 WBC 29.2 H RBC 4.17 L Hgb 11.2 L Hct 35.9 L MCV 86.1 MCH 26.9 L MCHC 31.2 L RDW Std Deviation 46.1 H RDW Coeff of Min 14.7 H Plt Count 277 MPV 10.8 Immature Gran % (Auto) 1.200 H Neut % (Auto) 83.5 H Lymph % (Auto) 6.3 L Emmons % (Auto) 8.1 Eos % (Auto) 0.5 Baso % (Auto) 0.4 Absolute Neuts (auto) 24.3 H Absolute Lymphs (auto) 1.85 Nucleated RBC % 0 Differential Comment SCANNED Sodium 134 Potassium 3.6 Chloride 92 L Carbon Dioxide 28.0 Anion Gap 14 BUN 14 Creatinine 0.84 Estim Creat Clear Calc 58.18 Est GFR (MDRD) Non-Af 79 BUN/Creatinine Ratio 16.9 Glucose 100 H Lactic Acid < 1.0 Calcium 9.5 Total Bilirubin 0.49 Direct Bilirubin 0.29 AST 21 ALT 38 H Alkaline Phosphatase 149 H Total Protein 7.0 Albumin 3.8 Globulin 3.2 Lipase 378 H Urine Color Urine Clarity Urine pH Ur Specific [place] Urine Protein Urine Glucose (UA) Urine Ketones Urine Occult Blood Urine Nitrite Urine Bilirubin Urine Urobilinogen Ur Leukocyte Esterase Urine RBC Urine WBC Ur Squamous Epith Cells Urine Bacteria Urine Mucus Ethyl Alcohol < 10.1 03/13/25 14:11 WBC RBC Hgb Hct MCV MCH MCHC RDW Std Deviation RDW Coeff of Min Plt Count MPV Immature Gran % (Auto) Neut % (Auto) Lymph % (Auto) Emmons % (Auto) Eos % (Auto) Baso % (Auto) Absolute Neuts (auto) Absolute Lymphs (auto) Nucleated RBC % Differential Comment Sodium Potassium Chloride Carbon Dioxide Anion Gap BUN Creatinine Estim Creat Clear Calc Est GFR (MDRD) Non-Af BUN/Creatinine Ratio Glucose Lactic Acid Calcium Total Bilirubin Direct Bilirubin AST ALT Alkaline Phosphatase Total Protein Albumin Globulin Lipase Urine Color Straw Urine Clarity Clear Urine pH 7.0 Ur Specific [place] 1.005 Urine Protein 30 H Urine Glucose (UA) Normal Urine Ketones Negative Urine Occult Blood Negative Urine Nitrite Negative Urine Bilirubin Negative Urine Urobilinogen Normal Ur Leukocyte Esterase 100 H Urine RBC 0-5 SEEN Urine WBC 5-10 SEEN Ur Squamous Epith Cells 0-5 SEEN Urine Bacteria 0 SEEN Urine Mucus 0 SEEN Ethyl Alcohol Radiography Diagnostic Testing: Clinical Impression(s) from Imaging Studies Abdomen/Pelvis CT 03/13/25 12:22 IMPRESSION: There is a stent in the body of the pancreas extending into the head and 2nd-3rdportion of the duodenum, unchanged. There is peripancreatic inflammation at the body and head, extending into the mesenteric root and right and left pericolic gutter, new compared to the prior. There is no organized or drainable collection. Pancreaticcalcifications are present which are consistent with chronic pancreatitis, predominantly in the head, similar to the prior. There is a 0.6 cm solid pulmonary nodule in the right lung base, image 6/118, unchanged from the February 26, 2025 exam, new compared to the November 04, [address] correlation is recommended. Critical results were discussed with Dr. Rand by Dr. Grover at the time of dictation. Reading Location: [facility] Chest X-Ray 03/13/25 12:40 IMPRESSION: No evidence of acute cardiopulmonary pathology. Reading Location: [id number] Discharge Plan Triage Chief Complaint: Abd Pain ED Provider: Macario Alex Dx/Rx/DC Orders Prescriptions: No Action mirtazapine 45 mg tablet 45 mg PO QHS amlodipine 10 mg tablet 5 mg PO DAILY Rx Instructions: Hold for SBP less than 130 mmHg lisinopril 10 mg tablet 10 mg PO QDAY albuterol sulfate [Ventolin HFA] 90 mcg/actuation HFA aerosol inhaler 2 puff INHALATION Q4H PRN (Reason: shortness of breath or wheezing) Qty: 18 11RF gabapentin 300 mg capsule 300 mg PO BID meloxicam 7.5 mg tablet 7.5 mg PO QDAY ondansetron 4 mg tablet,disintegrating 4 mg PO Q6 PRN (Reason: nausea/vomiting) hydroxyzine HCl 25 mg tablet 25 mg PO TID Breztri Aerosphere 160-9-4.8 mcg/actuation HFA aerosol inhaler [...] Q6H PRN (Reason: pain) Qty: 12 0RF tramadol 50 mg tablet 50 mg PO Q6H PRN (Reason: pain) 3 Days Qty: 12 0RF prednisone 20 mg tablet 40 mg PO DAILY 5 Days Qty: 10 0RF ondansetron 4 mg tablet,disintegrating 4 mg PO Q8H PRN PRN (Reason: Nausea) Qty: 12 0RF tramadol 50 mg tablet 50 mg PO Q6H PRN PRN (Reason: Pain) 3 Days Qty: 12 0RF nicotine 14 mg/24 hr patch 24 hour 1 patch transdermal ONCE Qty: 28 1RF guaifenesin 100 mg/5 mL liquid 200 mg PO Q4H PRN (Reason: congestion) Qty: 473 0RF (DME) Shower chair See Rx Instructions .Route .MEDSUPPLY Qty: 1 0RF Rx Instructions: As directed ipratropium-albuterol 0.5 mg-3 mg(2.5 mg base)/3 mL solution for nebulization 3 ml inhalation Q4H Qty: 360 11RF Primary Care Provider: Misbah Elkisn Referrals: Misbah Elkins MD [Primary Care Provider] - Print Language: Uruguayan What to do if you have Problems For any increased pain, shortness of breath, bleeding, nausea or vomiting, chestpain, or any unexpected problems, contact your Primary Care Provider. Call [facility] ([phone]) or report to the closest Emergency Room. Call 911 if necessary. 03/13/25 1716 <Electronically signed by Macario Alex > Cosigner Signature (if applicable): CC: Dr. Misbah Elkins MD ~ Signed [facility] Work Phone: 1(479) 348-668106-16-2025 Radiology Diagnostic study [facility]06-16-2025 Radiology Diagnostic study [facility] Work Phone: [phone]) 414-305206-16-2025 Telephone encounter Note* Telephone Encounter - Juan Bloom LPN - 03/13/2025 10:27 AM EDT Called and spoke with Gracie- went over that the pain has not subsided and has gotten worse since Saturday 03/10- ERCP with PD dilation and removal of stones hx CP- I discussed that we may have caused Gracie to develop Acute Pancreatitis - which is a risk of the ERCP - discussed that she will need to be seen in local ED for medical assessment. She understood but wanted me to call her sister to discuss- I confirmed that this was Domonique- and she helps Gracie with her medical issues- I have attempted x3 to call Domonique - listed number - it goes straight to voicemail and the mail box is full and I am unable to leave a message. Juan Bloom LPN [facility] Work Phone: [phone]) 695-391906-16-2025 Miscellaneous Notes* Telephone Encounter - Juan Bloom LPN - 03/13/2025 10:27 AM EDT Called and spoke with Gracie- went over that the pain has not subsided and has gotten worse since Saturday 03/10- ERCP with PD dilation and removal of stones hx CP- I discussed that we may have caused Gracie to develop Acute Pancreatitis - which is a risk of the ERCP - discussed that she will need to be seen in local ED for medical assessment. She understood but wanted me to call her sister to discuss- I confirmed that this was Domonique- and she helps Gracie with her medical issues- I have attempted x3 to call Domonique - listed number - it goes straight to voicemail and the mail box is full and I am unable to leave a message. Juan Bloom LPN * Telephone Encounter - Isis Gil - 03/13/2025 9:57 AM EDT Gracie calling #[phone] Patient states she's in a lot of pain, She's been taking extra strength tylenol with no relief. Pain is within the whole stomach area. She is not experiencing any nausea, vomiting or fever. Would like to speak to a nurse on what she should do, she would like to speak to someone today as she is concerned with the amount of pain she is under, mentioned the ED but would like to speak to someone first. Thank you Isis R documented [facility]06-[facility]-20[facility] Telephone encounter Note * Telephone Encounter - Isis Gil - 03/13/2025 9:57 AM EDT Gracie calling #[phone] Patient states she's in a lot of pain, She's been taking extra strength tylenol with no relief. Pain is within the whole stomach area. She is not experiencing any nausea, vomiting or fever. Would like to speak to a nurse on what she should do, she would like to speak to someone today as she is concerned with the amount of pain she is under, mentioned the ED but would like to speak to someone first. Thank you Isis R [facility]06-13-2025 Nurse Note* Janis Ac RN - 03/10/2025 5:[address] Chakraborty anesthesia ok d patient to be discharged Three hot packs given to patient for right arm [facility]06-13-2025 Nurse Note* Janis Ac, SARWAT - 03/10/2025 5:[address] Chakraborty anesthesia ok d patient to be discharged Three hot packs given to patient for right arm * Janis Ac RN - 03/10/2025 4:33 PM EDT Patient states her arm where the infiltration occurred it is burning Patient informed to keep an eye on the infiltrated area so a blister does not form of it does go to the Emergency room * Janis Ac RN - 03/10/2025 4:02 PM EDT Right AC IV infiltrated with 100cc IV Propofol large swollen red hard area Hot pack applied Patientcrying stating arm hurts patient Gracie and sister Magui spoke to Scale Expert nurse hospitality manager Reshma [facility] [place]. Pharmacy called, [facility] pharmacist notified unable to help. Called Drug information line spoke with Milan fallon monitor patient There is no information in regards to amount of time Propofol will take to infuse .Patient is awake alert oriented x3 * Janis Ac RN - 03/10/2025 3:[address] Chakraborty anesthesia notified patients blood pressure low 73/52 74/51 Albumin 25 grams given Patient awake alert oriented x3 skin warm and dry * Janis Ac RN - 03/10/2025 3:27 PM EDT AMBULATORY PATIENT EDUCATION NOTE TOPIC: GI PROCEDURES: [...] Procedure Discharge Instructions REFERRAL (RECOMMENDATION): None * Adrian Edmond RN - 03/10/2025 12:30 PM EDT PRE OP LEARNING ASSESSMENT PROCEDURE/SURGERY: GI PROCEDURES: ERCP READINESS TO LEARN COGNITIVE ABILITY: Alert and oriented MOTIVATION TO LEARN: Eager FAMILY SUPPORT: High - Very involved in pt care PATIENT LEARNS BEST BY: Individual Instruction Verbal Instruction FACTORS AFFECTING LEARNING: None PHYSICAL LIMITATIONS AFFECTING LEARNING: None Electronically Signed By: Adrian Edmond RN In Department: GASTROENTEROLOGY documented in this encounterA[facility]06-13-20[facility] Nurse Note* Janis Ac RN - 03/10/2025 4:33 PM EDT Patient states her arm where the infiltration occurred it is burning Patient informed to keep an eye on the infiltrated area so a blister does not form of it does go to the Emergency room [facility]06-13-2025 Nurse Note* Janis Ac RN - 03/10/2025 4:02 PM EDT Right AC IV infiltrated with 100cc IV Propofol large swollen red hard area Hot pack applied Patientcrying stating arm hurts patient Gracie and sister Magui spoke to [employer] Expert nurse hospitality [facility]. Pharmacy called, [facility] pharmacist notified unable to help. Called Drug information line spoke with Milan fallon monitor patient There is no information in regards to amount of time Propofol will take to infuse .Patient is awake alert oriented x3 [facility]06-13-2025 Nurse Note* Janis Ac RN - 03/10/2025 3:[address] Chakraborty anesthesia notified patients blood pressure low 73/52 74/51 Albumin 25 grams given Patient awake alert oriented x3 skin warm and dry [facility]06-13-2025 Nurse Note* Janis Ac RN - 03/10/2025 3:27 PM EDT AMBULATORY PATIENT EDUCATION NOTE TOPIC: GI PROCEDURES: [...] MATERIAL: Procedure Discharge Instructions REFERRAL (RECOMMENDATION): None [facility]06-13-2025 NoteQ3 Patient Name: Gracie Banuelos Procedure Date: 03/10/2025 1:46 PM Date of : 1965 Admit Type: Outpatient Age: 59 Gender: Female Note Status: Finalized Attending MD: Jane Farrell MD, [id number] Procedure: ERCP Indications: Chronic pancreatitis, For therapy [...] procedure well. Moderate Sedation: GA Findings: A addressograph operator film of the abdomen was obtained. Multiple [...] remove stent. Procedure Code(s): --- Professional --- 87987, Endoscopic retrograde cholangiopancreatography (ERCP); with placement of endoscopic stent into biliary or pancreatic duct, including pre- and post-dilation and guide wire passage, when performed, including sphincterotomy, when performed, each stent 81783, Endoscopic retrograde cholangiopancreatography (ERCP); with removal of calculi/debris from (more content not included)...[id number] NoteHNO ID: [id number] Author: VANESSA PEREZ APRN.CRNA Service: ? Author Type: Nurse Business Relationship Manager Type: Anesthesia Procedure Notes Filed: 03/10/2025 14:41 Note Text: ANESTHESIOLOGY PROCEDURE NOTE Airway General Information Procedure Start Time/Medication Administration: 03/10/2025 2:15 PM Procedure End Time: 03/10/2025 2:15 PM Patient location during procedure: OR Timeout Performed Pre-procedure: timeout performed Consent Obtained: Yes Patient identity confirmed: arm band, care support team assoc and patient Staffing HADOOP CONSULTANT: Vanessa Perez APRN.HADOOP CONSULTANT Performed by: LISETTE Indications and Patient Condition Indications for airway management: anesthesia and airway protection Preoxygenated: yes anesthesia circuit Patient position: sniffing Method: sleep Difficult Mask: No Final Airway Details Final airway type: endotracheal airway Final Endotracheal Airway: ETT Cuffed: yes Successful intubation technique: video laryngoscopy Devices used: [employer] Endotracheal tube insertion site: oral Blade size: #3 ETT size (mm): 7.0 Measured from: lips Measurement (cm): 21 Placement verified by: capnometry Cormack-Lehane Classification: grade I - full view of glottis Number of attempts at approach: 1 Airway not difficult SIGNATURE: Vanessa Perez APRN.CRNA PATIENT NAME: Gracie Banuelos DATE: March 10, 2025 TIME: 2:40 PM CSN: [id number] NoteQ3 Patient Name: Gracie Banuelos Procedure Date: 03/10/2025 1:46 PM Date of : 1965 Admit Type: Outpatient Age: 59 Gender: Female Note Status: Finalized Attending MD: Jane Farrell MD, [id number] Procedure: ERCP Indications: Chronic pancreatitis, For therapy [...] procedure well. Moderate Sedation: GA Findings: A addressograph operator film of the abdomen was obtained. Multiple [...] remove stent. Procedure Code(s): --- Professional --- 72739, Endoscopic retrograde cholangiopancreatography (ERCP); with placement of endoscopic stent into biliary or pancreatic duct, including pre- and post-dilation and guide wire passage, when performed, including sphincterotomy, when performed, each stent 61891, Endoscopic retrograde cholangiopancreatography (ERCP); with removal of calculi/debris from biliary/pancreatic duct(s) 49739, Endoscopic catheterization of the pancreatic ductal system, radiological supervision and interpretation Diagnosis Code(s): --- Professional --- K86.89, Other specified diseases of pancreas K86.1, Other chronic pancreatitis R93.2, Abnormal findings on diagnostic imaging of liver and biliary tract CPT copyright 2020 [employer]. All rights reserved. Attending Participation: I personally performed the entire procedure. Scope In: 2:28:14 PM Scope Out: 2:49:25 PM MD Jane Fields MD 03/10/2025 3:19:29 PM This report has been signed electronically by Jane Farrell MD Number of Addenda: 0 Note Initiated On: 03/10/2025 1:[address] [facility]06-13-2025 Nurse Note* Adrian Edmond RN - 03/10/2025 12:30 PM EDT PRE OP LEARNING ASSESSMENT PROCEDURE/SURGERY: GI PROCEDURES: ERCP READINESS TO LEARN COGNITIVE ABILITY: Alert and oriented MOTIVATION TO LEARN: Eager FAMILY SUPPORT: High - Very involved in pt care PATIENT LEARNS BEST BY: Individual Instruction Verbal Instruction FACTORS AFFECTING LEARNING: None PHYSICAL LIMITATIONS AFFECTING LEARNING: None Electronically Signed By: Adrian Edmond RN In Department: GASTROENTEROLOGY [facility]06-10-2025 Telephone encounter Note* Telephone Encounter - Isis Gil - 03/07/2025 2:29 PM EDT Patient called, did not receive email. She stated it had to all be in lower case. I resent email Thank you Isis Joe [facility]06-10-2025 Miscellaneous Notes* Telephone Encounter - Isis Gil - 03/07/2025 2:29 PM EDT Patient called, did not receive email. She stated it had to all be in lower case. I resent email Thank you Isis R * Telephone Encounter - Juan Bloom LPN - 03/07/2025 12:28 PM EDT Images from the original note were not included. Jane Farrell MD Department of Gastroenterology- Advanced Endoscopy [address] [place], [place] [id number] 03/07/2025 Pt. name: Gracie Banuelos 1965 MEDICAL Procedure This is to certify that Gracie Banuelos this is a letter to confirm that Gracie has a procedure at [facility] on 03/10 with an arrival time of 12pm. This appointment needs to have a responsible adult motor coach bus driver to accompany her for transportation to and after her procedure. Sincerely, Jane Farrell MD * Telephone Encounter - Isis Gil - 03/07/2025 11:40 AM EDT She stated there was supposed to be a letter or some document to be faxed over to [facility] to help pay for her gas prior to her ERCP on 03/10/25 Email: [email or web address] Are we able to get that sent over for patient? Thank you Isis Joe documented in this encounterAult[facility] Alliance Community [facility] Telephone encounter Note * Telephone Encounter - Juan Bloom LPN - 03/07/2025 12:28 PM EDT Images from the original note were not included. Jane Farrell MD Department of Gastroenterology- Advanced Endoscopy [address] [id number] 03/07/2025 Pt. name: Gracie Banuelos 1965 MEDICAL Procedure This is to certify that Gracie Banuelos this is a letter to confirm that Gracie has a procedure at [facility] on 03/10 with an arrival time of 12pm. This appointment needs to have a responsible adult motor coach bus driver to accompany her for transportation to and after her procedure. Sincerely, Jane Farrell MD [facility] Work Phone: 1(343) 328-453106-10-2025 NoteHNO ID: [id number] Author: JUAN BLOOM LPN Service: ? Author Type: LICENSED NURSE Type: Progress Notes Filed: 03/07/2025 12:28 Note Text: Jane Farrell MD Department of Gastroenterology- Advanced Endoscopy [address] [id number] 03/07/2025 Pt. name: Gracie Banuelos 1965 MEDICAL Procedure This is to certify that Gracie Banuelos this is a letter to confirm that Gracie has a procedure at [facility] on 03/10 with an arrival time of 12pm. This appointment needs to have a responsible adult motor coach bus driver to accompany her for transportation to and after her procedure. Sincerely, Jane Farrell [facility]06-10-2025 History of Present illness Narrative* Juan Bloom LPN - 03/07/2025 11:57 AM EDT Images from the original note were not included. Jane Farrell MD Department of Gastroenterology- Advanced Endoscopy [address] [id number] 03/07/2025 Pt. name: Gracie Banuelos 1965 MEDICAL Procedure This is to certify that Gracie Banuelos this is a letter to confirm that Gracie has a procedure at [facility] on 03/10 with an arrival time of 12pm. This appointment needs to have a responsible adult motor coach bus driver to accompany her for transportation to and after her procedure. Sincerely, Jane Farrell MD documented [facility] encounterA[facility]06[facility] Telephone encounter Note * Telephone Encounter - Isis Gil - 03/07/2025 11:40 AM EDT She stated there was supposed to be a letter or some document to be faxed over to [employer] to help pay for her gas prior to her ERCP on 03/10/25 Email: [email or web address] Are we able to get that sent over for patient? Thank you Isis Joe [facility]06-09-2025 Telephone encounter Note* Telephone Encounter - Juan Senior APRN.CNP - 03/06/2025 3:53 PM EDT Patient calling to discuss anxiety related to ERCP on Saturday 03/10. She is wondering if she can receive something for anxiety prior to procedure. Patient instructed to ask Dr. Farrell prior. Patient also asking for email to be sent to [employer] ([employer] action assistance program) with proof ofprocedure for gas money. Patient also reports diarrhea and changes in mental status/forgetfulness and extreme fatigue after increasing gabapentin dose. Instructed patient to decrease dose from TID to BID. Also strongly encouraged patient to keep upcoming appointment with pain management. All questions answered at this time. Will follow up after procedure. Juan Senior APRN.CNP [facility] Work Phone: [phone]) [phone] Miscellaneous Notes* Telephone Encounter - Juan Senior APRN.CNP - 03/06/2025 3:53 PM EDT Patient calling to discuss anxiety related to ERCP on Saturday 03/10. She is wondering if she can receive something for anxiety prior to procedure. Patient instructed to ask Dr. Farrell prior. Patient also asking for email to be sent to [employer] ([employer] action assistance program) with proof ofprocedure for gas money. Patient also reports diarrhea and changes in mental status/forgetfulness and extreme fatigue after increasing gabapentin dose. Instructed patient to decrease dose from TID to BID. Also strongly encouraged patient to keep upcoming appointment with pain management. All questions answered at this time. Will follow up after procedure. Juan Senior APRN.CNP * Telephone Encounter - Dayana Bone - 02/03/2025 2:45 PM EDT Patient called the office and would like a refill for gabapentin (NEURONTIN) 300 mg capsule. Please send script to: [facility] [address] [place] [address] - [address] - [phone] [[phone]] Dayana Martell documented in this encounterAultman [facility] Hospital06-09-2025 Telephone encounter Note * Telephone Encounter - Caitlin Obrien RN - 03/06/2025 11:30 AM EDT Attempted to reach patient to answer he questions from call this morning, no answer. VM left to call the office back. [facility] Work Phone: [phone] Miscellaneous Notes* Telephone Encounter - Caitlin Obrien RN - 03/06/2025 11:30 AM EDT Attempted to reach patient to answer he questions from call this morning, no answer. VM left to call the office back. documented in this encounterAultman [facility] Hospital06-09-2025 Telephone encounter Note * Telephone Encounter - Isis Gil - 03/06/2025 9:04 AM EDT Gracie calling #[phone] Patient is calling regarding wanting to speak [...] voicemail is ok. Thank you Isis Joe [facility]06-09-2025 Miscellaneous Notes* Telephone Encounter - Isis Gil - 03/06/2025 9:04 AM EDT Gracie calling #[phone] Patient is calling regarding wanting to speak [...] Thank you Isis Joe documented in this encounterAultman Alliance [facility] Hospital06-06-2025 Nurse Note* Jaelyn Kothari RN - 03/03/2025 9:48 AM EDT Attempted to reach the patient at the contact number that they provided [phone] (home) . Unable to speak with patient so without identifying the patient the following information was left on their voice mail: Date of procedure, location and report time A message was left informing the patient/patient customer account representative they must have a responsible adult [...] Number to call with questions or concerns [phone] Number to call to cancel their procedure [phone] Jaelyn Kothari RN [facility]06-06-2025 Nurse Note* Jaelyn Kothari RN - 03/03/2025 9:48 AM EDT Attempted to reach the patient at the contact number that they provided [phone] (home) . Unable to speak with patient so without identifying the patient the following information was left on their voice mail: Date of procedure, location and report time A message was left informing the patient/patient customer account representative they must have a responsible adult [...] Number to call with questions or concerns [phone] Number to call to cancel their procedure [phone] Jaelyn Kothari, RN documented in this encounterAultman [facility] Hospital06-01-2025 Radiology Diagnostic study [facility]05-16-2025 Telephone encounter Note* Telephone Encounter - Pam Pino - 02/10/2025 11:31 AM EDT Received / transmitted outside records to patient's chart. See scanned documents tab (clearance letter). [facility] Work Phone: [phone]) [phone] Miscellaneous Notes* Telephone Encounter - Pam Pino - 02/10/2025 11:31 AM EDT Received / transmitted outside records to patient's chart. See scanned documents tab (clearance letter). documented in this encounterAultman [facility] Hospital05-09-2025 Telephone encounter Note * Telephone Encounter - Dayana Bone - 02/03/2025 2:45 PM EDT Patient called the office and would like a refill for gabapentin (NEURONTIN) 300 mg capsule. Please send script to: [facility] [address] [place] [address] - [address] [facility] - [phone] [539] Dayana Martell [facility]04-29-2025 Telephone encounter Note* Telephone Encounter - Holly Herrera - 01/24/2025 8:59 AM EDT Prescription Refill Information The patient has [...] Holly Jensen January 24, 2025 8:59 AM [facility]04-29-2025 Miscellaneous Notes* Telephone Encounter - Holly Herrera - 01/24/2025 8:59 AM EDT Prescription Refill Information The patient has [...] 24, 2025 8:59 AM documented in this encounterAultman Alliance Community Hospital04-22-2025 Telephone encounter Note * Telephone Encounter - Mihaela Cadena - 01/17/2025 12:01 PM EDT Appears patient was seen on 01/13/25 [facility]04-22-2025 Miscellaneous Notes* Telephone Encounter - Mihaela Cadena - 01/17/2025 12:01 PM EDT Appears patient was seen on 01/13/25 * Telephone Encounter - Eva Guardado - 01/02/2025 2:11 PM EDT Left message for patient to return call. When patient calls, please obtain the answers to Soila Easton's questions below or transfer to nurse to get the requested information. Eva Guardado * Telephone Encounter - Soila Easton APRN.CNP - 01/02/2025 9:26 AM EDT Hesitant to send the ibuprofen. What has she been taking for pain? She was jsut in hospital with EGD and found blood in her mouth any recent Gi bleeds? Ibuprofen can cause GI bleeds. Thank you Soila Easton APRN.IGOR * Telephone Encounter - Chen Chauhan LPN - 01/02/2025 8:30 AM EDT Prescription Refill Information The patient has [...] Chauhan LPN January 02, 2025 8:30 AM * Telephone Encounter - Carolyne Trimble - 12/31/2024 9:25 AM EDT Patient called stating she has pain mgmt appt on 01/05. Patient is requesting zofran, and extra strength Ibuprofen 400 mg. Patient uses [facility] [place]. documented in this encounterAultman Alliance Community Hospital04-18-2025 NoteHNO ID: [id number] Author: SOILA EASTON APRN.IGOR Service: ? Author Type: Nurse Practitioner Type: Progress Notes Filed: 01/13/2025 11:33 Note Text: CC: Patient presents with: Recheck: Follow up HPI Gracie Banuelos is a 59 year old female who presents today for gout concerns. Recording using [employer] software for draft documentation of the visit was discussed with the patient/authorized customer account representative; all questions welcomed and answered. Patient/authorized customer account representative agreed to proceed Gout: - Under [...] of months ago asa ordered by her emergency response officer. - Denies redness or red streaking; COPD [...] will be in the 90s. States her parks worker is aware of this. - Concerns about potential need for ventilator post-surgery. - Under care of Dr. Sebastian and Ani at [facility]. - No recent infections, fever, or [...] Stage 3 severe COPD by GOLD classification ([facility]) 2018 Tobacco use greater than 30 years [...] by mouth once daily. (more content not included)...[facility]04-18-2025 History of Present illness Narrative* Rustam, UNA Rodriguez.RN FACULTY - 01/13/2025 11:11 AM EDT CC: Patient presents with: Recheck: Follow up HPI Gracie Banuelos is a 59 year old female who presents today for gout concerns. Recording using [employer] software for draft documentation of the visit was discussed with the patient/authorized customer account representative; all questions welcomed and answered. Patient/authorized customer account representative agreed to proceed Gout: - Under [...] of months ago asa ordered by her emergency response officer. 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 - Previously on 12 L of oxygen, now reduced to 5 L; goal is 2 L for upcoming pancreatic stent placement. - currently on portable O2 compressor which delivers on demand versus continuous so oxygen level inoffice is in 80s. Patient reports that is typical for her and when she is at home on her continuouscompressor, she will be in the 90s. States her parks worker is aware of this. - Concerns about potential need for ventilator post-surgery. - Under care of Dr. Sebastian and Ani at [facility]. - No recent infections, fever, or [...] Stage 3 severe COPD by GOLD classification ([facility]) 2018 Tobacco use greater than 30 years [...] colchicine confirmed; instructed to take 2 tablets immediately,followed by 1 tablet twice daily until go - Advised to monitor for improvement; if symptoms persist or worsen, further evaluation will be necessary. - Recommended tart keene juice for anti-inflammatory benefits. 2. Calculus of pancreatic duct (HCC) (K86.89) 3. Chronic recurrent pancreatitis (HCC) (K86.1) - Undergoing evaluation and management by GI specialists at [facility]. - Awaiting pancreatic stent placement; pulmonary status being optimized to 2L O2 to facilitate safeanesthesia. - Continue with recommendations by GI 4. Chronic obstructive pulmonary disease, unspecified COPD type (HCC) (J44.9) 5. Pulmonary emphysema, unspecified emphysema type (HCC) (J43.9) - Severe COPD with 30-37% lung function; currently on 5L O2, aiming to reduce to 2L for upcoming procedure. - Under care of Dr. Sebastian and Ani at [facility]. - No recent infections, fever, or [...] plan. Soila Easton APRN.CNP documented in this encounterAultman Alliance Community Hospital04-17-2025 Telephone encounter Note * Telephone Encounter - Marge Perkins RN - 01/12/2025 1:15 PM EDT Pt has appointment with Soila Easton [employer] Driver on 01/14/24. [place] [address]-17-2025 Miscellaneous Notes* Telephone Encounter - Marge Perkins RN - 01/12/2025 1:15 PM EDT Pt has appointment with Soila Easton [employer] on 01/14/24. * Telephone Encounter - Aleta Carroll MA - 01/10/2025 9:51 AM EDT Spoke with pt, she states she has urinary incontinence and trouble holding her urine when she is outside her home. Sent rx to [facility]. FYI: Pt scheduled appt tomorrow with Soila Easton to discuss multiple concerns. Aleta Carroll MA * Telephone Encounter - Misbah Elkins MD - 01/09/2025 10:00 PM EDT Please confirm with her, the symptoms for which she needs the pull ups, RegardsMisbah MD * Telephone Encounter - Marge Perkins RN - 01/09/2025 7:13 PM EDT Pt called in and reports she can get pull ups paid for through [employer]. She states the provider jst has to [...] the provider usually has to send the ordersto a DME not a pharmacy, but I would have them call her tomorrow if they had any questions. Please call and advise. Marge Perkins RN documented in this encounterAultman Alliance Community Hospital04-15-2025 Telephone encounter Note * Telephone Encounter - Aleta Carroll MA - 01/10/2025 9:51 AM EDT Spoke with pt, she states she has urinary incontinence and trouble holding her urine when she is outside her home. Sent rx to [facility]. FYI: Pt scheduled appt tomorrow with Soila Easton to discuss multiple concerns. Aleta Carroll MA [facility]04-14-2025 Telephone encounter Note* Telephone Encounter - Misbah Elkins MD - 01/09/2025 10:00 PM EDT Please confirm with her, the symptoms for which she needs the pull ups, RegardsMisbah MD [facility]04-14-2025 Telephone encounter Note* Telephone Encounter - Marge Perkins RN - 01/09/2025 7:13 PM EDT Pt called in and reports she can get pull ups paid for through [employer]. She states the provider jst has to [...] the provider usually has to send the ordersto a DME not a pharmacy, but I would have them call her tomorrow if they had any questions. Please call and advise. Marge Babulski, RN [facility]04-14-2025 Telephone encounter Note* Telephone Encounter - Juan Bloom LPN - 01/09/2025 12:44 PM EDT Disp Refills Start End gabapentin (NEURONTIN) 300 mg capsule 60 capsule 0 01/09/2025 02/08/2025 Sig: Take 1 capsule by mouth two times a day for 30 days. Sent to pharmacy as: gabapentin (NEURONTIN) 300 mg capsule Class: Normal Route: ORAL Order: [id number] Cosign for Ordering: Required by Juan Senior APRN.RN FACULTY E-Prescribing Status: Sent to pharmacy (01/09/2025 12:43 PM EDT) [facility] Work Phone: [phone] Miscellaneous Notes* Telephone Encounter - Juan Bloom LPN - 01/09/2025 12:44 PM EDT Disp Refills Start End gabapentin (NEURONTIN) 300 mg capsule 60 capsule 0 01/09/2025 02/08/2025 Sig: Take 1 capsule by mouth two times a day for 30 days. Sent to pharmacy as: gabapentin (NEURONTIN) 300 mg capsule Class: Normal Route: ORAL Order: [id number] Cosign for Ordering: Required by Juan Senior APRN.RN FACULTY E-Prescribing Status: Sent to pharmacy (01/09/2025 12:43 PM EDT) * Telephone Encounter - Dayana Bone - 01/06/2025 12:39 PM EDT Patient called the office stating that she missed her pain management appointment and would like toknow if the office would be able to prescribe her some pain medication until she is able to have her appointment in February. Please review and advise. Dayana Martell Traffic Police Officer documented in this encounterAultman Alliance Community Hospital04-14-2025 Telephone encounter Note * Telephone Encounter - Juan Bloom LPN - 01/09/2025 9:22 AM EDT I spoke with Gracie - discussed for [...] Juan Senior for recommendations. Juan Bloom LPN [facility] Work Phone: 1(282) 307-978004-14-2025 Miscellaneous Notes* Telephone Encounter - Juan Bloom LPN - 01/09/2025 9:22 AM EDT I spoke with Gracie - discussed for [...] Juan Senior for recommendations. Juan Bloom LPN * Telephone Encounter - Raisa Jimenez RN - 01/09/2025 8:53 AM EDT Pt is calling asking that someone please contact her. She is in extreme pain and missed her pain management appt She's left several messages but is asking if you can put a script in for pain? Raisa Jimenez MA documented in this encounterAultman Alliance Community Hospital04-14-2025 Telephone encounter Note * Telephone Encounter - Raisa Jimenez RN - 01/09/2025 8:53 AM EDT Pt is calling asking that someone please contact her. She is in extreme pain and missed her pain management appt She's left several messages but is asking if you can put a script in for pain? Raisa Jimenez MA [facility]04-11-2025 Telephone encounter Note* Telephone Encounter - Dayana Bone - 01/06/2025 12:39 PM EDT Patient called the office stating that she missed her pain management appointment and would like toknow if the office would be able to prescribe her some pain medication until she is able to have her appointment in February. Please review and advise. Dayana Martell Traffic Police Officer [facility]04-10-2025 Telephone encounter Note* Telephone Encounter - Noemí Self - 01/05/2025 1:36 PM EDT Patient called. She missed her pain management appointment today. She was rescheduled for March 14. She would like to speak to you regarding this today, if possible. [phone] (home) [facility] Work Phone: 1(656) 643-315804-10-2025 Miscellaneous Notes* Telephone Encounter - Noemí Self - 01/05/2025 1:36 PM EDT Patient called. She missed her pain management appointment today. She was rescheduled for March 14. She would like to speak to you regarding this today, if possible. [phone] (home) documented in this encounterAultman Alliance Community Hospital04-08-2025 Telephone encounter Note * Telephone Encounter - Eladio Zayasdi - 01/03/2025 12:23 PM EDT Prescription Refill Information The patient has been identified by name and date of : Yes Caregiver verified no other encounters exist for this prescription request: Yes Caregiver confirmed with patient/requestor that no other refills are due, in the near future, with this provider at this time: Yes NOTE: patient is completely out of this medication. Please send today [facility] [place], per patient she was told to ask [...] Jordana Estes January 03, 2025 12:24 PM [facility]04-08-2025 Miscellaneous Notes* Telephone Encounter - Angelorobert Germandionte Jordana - 01/03/2025 12:23 PM EDT Prescription Refill Information The patient has been identified by name and date of : Yes Caregiver verified no other encounters exist for this prescription request: Yes Caregiver confirmed with patient/requestor that no other refills are due, in the near future, with this provider at this time: Yes NOTE: patient is completely out of this medication. Please send today [facility] [place], per patient she was told to ask [...] 03, 2025 12:24 PM documented in this encounterAultman Alliance Community Hospital04-07-2025 Telephone encounter Note * Telephone Encounter - Eva Guardado - 01/02/2025 2:11 PM EDT Left message for patient to return call. When patient calls, please obtain the answers to Soila Easton's questions below or transfer to nurse to get the requested information. Eva Guardado [facility]04-07-2025 Telephone encounter Note* Telephone Encounter - Soila Easton APRN.CNP - 01/02/2025 9:26 AM EDT Hesitant to send the ibuprofen. What has she been taking for pain? She was jsut in hospital with EGD and found blood in her mouth any recent Gi bleeds? Ibuprofen can cause GI bleeds. Thank you Soila Easton APRN.CNP [facility]04-07-2025 Telephone encounter Note* Telephone Encounter - Chen Chauhan LPN - 01/02/2025 8:30 AM EDT Prescription Refill Information The patient has [...] Chauhan LPN January 02, 2025 8:30 AM [facility]04-06-2025 Radiology Diagnostic study [facility]04-06-2025 Discharge summary Author Leandro Sanchez [facility] Note Date/Time January 01, 2025 10:0 6pm [facility] Medical Records Department [address] [place] [address] Emergency Department Summary 01/01/25 MR#: [id number] Acct: [id number] Name: GRACIE BANUELOS Rep #:[id number] : 1965 59 From: Leandro Sanchez MD PCP: Dr. Misbah Elkins MD Status:REG E R Location: ED [...] to have surgery on December 27 at [facility], but it was postponed secondary to her parks worker stating that she should not have surgery [...] on January 05, 4 days from now. [facility] Medical History Stenosis of left subclavian artery [...] Allergy Other Verified 01/01/25 20:30 hydrocodone (From [facility]) AdvReac Itching Verified 01/01/25 20:30 Family History [...] was bolused normal saline 1 L intravenously. [id number] with a normal anion gap of 11. [...] not have a pain appointment until the that she was told tocome to the [...] interstitial markings. No focal consolidation. [facility] Chief Complaint: Abd [...] until breathing returns to target peak flow/parameters [employer] 160-9-4.8 mcg/actuation HFA aerosol inhaler 2 [...] Rx Instructions: As directed Primary Care Provider: Misbah Elkins Referrals: Misbah Elkins MD [Primary Care Provider] - 1-2 Days if not improving Activity Restrictions/Additional Instructions: Follow-up with pain management on January 05 as scheduled. Quit smoking. Return with fever, increased pain, new or worsening symptoms. Print Language: Uruguayan Disposition Disposition: Home, Self Care What to do if you have Problems For any increased pain, shortness of breath, bleeding, nausea or vomiting, chestpain, or any unexpected problems, contact your Primary Care Provider. Call [facility] ([phone]) or report to the closest Emergency Room. Call 911 if necessary. 01/01/252205 <Electronically signed by Leandro Sanchez MD> Cosigner Signature (if applicable): CC: Dr. Misbah Elkins MD ~ Signed [facility] Work Phone: 1(327) 645-429604-05-2025 Telephone encounter Note* Telephone Encounter - Tyra Meraz RN - 12/31/2024 2:32 PM EDT Patient calling with request for medication/refill: Patient/caregiver requesting refill of Motrin and Zofran be called to [facility] at [phone]., Allergies reviewed: Yes, Medication, dosage and sig reviewed: Yes. , Do you have enough medication to last until the office reopens? Yes. ,and Have you contacted your pharmacy to ask for enough medication to get by until the office reopens? No. Patient denies any new or worsening symptoms of which a provider is not aware: Yes. [facility]04-05-2025 Miscellaneous Notes* Telephone Encounter - Tyra Meraz RN - 12/31/2024 2:32 PM EDT Patient calling with request for medication/refill: Patient/caregiver requesting refill of Motrin and Zofran be called to [facility] at [phone]., Allergies reviewed: Yes, Medication, dosage and sig reviewed: Yes. , Do you have enough medication to last until the office reopens? Yes. ,and Have you contacted your pharmacy to ask for enough medication to get by until the office reopens? No. Patient denies any new or worsening symptoms of which a provider is not aware: Yes. [facility] Tele[facility] encounter Note * Telephone Encounter - Marge Handy RN - 12/31/2024 2:08 PM EDT Patient calling with medication/refill: Patient/caregiver requesting refill of ibuprofen be called to [facility]) pharmacy at [phone]., Allergies reviewed: Yes, Medication, dosage and sig [...] and had no further questions or concerns. [facility] Work Phone: 1(855) 801-556004-05-2025 Miscellaneous Notes* Telephone Encounter - Marge Handy RN - 12/31/2024 2:08 PM EDT Patient calling with medication/refill: Patient/caregiver requesting refill of ibuprofen be called to [facility] pharmacy at [phone]., Allergies reviewed: Yes, Medication, dosage and sig [...] requested a refill of ondansetron but per [facility], she should have a refill available. [...] further questions or concerns. documented in this encounterA[facility]04[facility] Telephone encounter Note * Telephone Encounter - Carolyne Trimble - 12/31/2024 9:25 AM EDT Patient called stating she has pain mgmt appt on 01/05. Patient is requesting zofran, and extra strength Ibuprofen 400 mg. Patient uses [facility] [place], [place]. [facility] Work Phone: 1(688) 290-106004-02-2025 Telephone encounter Note* Telephone Encounter - Juan [...] Juan Senior as well Juan Bloom LPN [facility] Work Phone: 1(287) 615-157504-02-2025 Miscellaneous Notes* Telephone Encounter - Juan Bloom [...] Patient returned call. Can be reached at: [phone] (home) * Telephone Encounter - Juan Bolom LPN - 12/28/2024 3:02 PM EDT VM left for Gracie Banuelos to discuss current symptoms Offered to call office for discussion. Juan Bloom LPN * Telephone Encounter - Lyric Yeung - 12/28/2024 8:53 AM EDT Outside pulmonary function test & CT lung screen results scanned in [facility] Lyric Yeung * Telephone Encounter - Dayana [...] and advise. Dayana Martell documented in this encounterA[facility]04-[facility] Telephone encounter Note * Telephone Encounter - Noemí Self - 12/28/2024 3:14 PM EDT Patient returned call. Can be reached at: [phone] (home) [facility] Work Phone: 1(602) 120-693404-02-2025 Telephone encounter Note* Telephone Encounter - Juan Bloom LPN - 12/28/2024 3:02 PM EDT VM left for Gracie Banuelos to discuss current symptoms Offered to call office for discussion. Juan Bloom LPN [facility]04-02-2025 Telephone encounter Note* Telephone Encounter - Lyric Yeung - 12/28/2024 8:53 AM EDT Outside pulmonary function test & CT lung screen results scanned in [facility] Lyric Yeung [facility]04-01-2025 Telephone encounter Note* Telephone Encounter - Jasbir Jensen Dayana - 12/27/2024 12:58 PM EDT Patient called the office and would like a call back to discuss current health changes. Patient stated that she had to cancel her procedure due to her recent hospital stay. Patients stated that she was in the hospital for a week due to her COPD. Please review and advise. Dayana Quintanillae [facility]03-28-2025 Telephone encounter Note* Telephone Encounter - Raisa Jimenez RN - 12/23/2024 12:30 PM EDT Spoke with pt and went over instructions and directions for her appt on 12/27/24. Pt wrote down verbal instructions and confirmed understanding Raisa Jimenez MA (Nell) [facility]03-28-2025 Miscellaneous Notes* Telephone Encounter - Raisa Jimenez RN - 12/23/2024 12:30 PM EDT Spoke with pt and went over instructions and directions for her appt on 12/27/24. Pt wrote down verbal instructions and confirmed understanding Raisa Jimenez MA (Nell) documented in this encounterA[facility]03-27-2025 Telephone encounter Note * Telephone Encounter - Eileen Chavez MA - 12/22/2024 9:01 AM EDT Message sent. [facility]03-27-2025 Miscellaneous Notes* Telephone Encounter - Eileen Chavez MA - 12/22/2024 9:01 AM EDT Message sent. * Telephone Encounter - Solia Easton APRN.CNP - 12/22/2024 8:07 AM EDT [...] her when they are. documented in this encounterA[facility]03-27-2025 Telephone encounter Note * Telephone Encounter - Soila Easton APRN.CNP - 12/22/2024 8:07 AM EDT I am assuming this is regards to the chest xray as ordered by tara Youngblood. If so please see her result note on the xray. If not, please specify which xray I need to address. Thank you Soila Easton APRN.CNP [facility]03-26-2025 Telephone encounter Note* Telephone Encounter - Sylvia Chawla MA - 12/21/2024 2:05 PM EDT Pt informed Pt asking for xray results but still in process Sylvia Chawla MA [facility]03-26-2025 Miscellaneous Notes* Telephone Encounter - Sylvia Chawla [...] discussed in office. Thank you, Tara Youngblood APRN.RN FACULTY documented in this encounterA[facility]03-26-2025 Telephone encounter Note * Telephone Encounter - Tara Youngblood APRN.CNP - 12/21/2024 9:25 AM EDT Please call patient and let her know that lab work results are improving. WBC is actually slightly improved from inpatient recent labs. Lipase level is WNL which is great. Continue as discussed in office. Thank you, Tara Youngblood APRN.RN FACULTY [facility] Work Phone: 1(334) 801-877803-25-2025 Nurse Note* Carroll Leblanc RN - 12/20/2024 2:55 PM EDT Attempted to reach the patient at the contact number that they provided [phone] (home) . Unable to speak with patient so without identifying the patient the following information was left on their voice mail: Date of procedure, location and report time Prep instructions A message was left informing the patient/patient customer account representative they must have a responsible adult [...] Number to call with questions or concerns [phone] Number to call to cancel their procedure [phone] Carroll Leblanc RN [facility]03-25-2025 Nurse Note* Carroll Leblanc RN - 12/20/2024 2:55 PM EDT Attempted to reach the patient at the contact number that they provided [phone] (home) . Unable to speak with patient so without identifying the patient the following information was left on their voice mail: Date of procedure, location and report time Prep instructions A message was left informing the patient/patient customer account representative they must have a responsible adult [...] Number to call with questions or concerns [phone] Number to call to cancel their procedure [phone] Carroll Leblanc RN documented in this encounterA[facility]03-24-2025 Telephone encounter Note * Telephone Encounter - Marge Perkins RN - 12/19/2024 6:51 PM EDT Pt called in for x-ray results. I let Pt know they are not back in yet and provider would call her when they are. [facility]03-24-2025 History of Present illness Narrative* Roland Camargo, RT(R) - 12/19/2024 3:50 PM EDT Radiology [...] PATIENT PRESENTS WITH AN IMPLANTABLE OR ATTACHED PARK MANAGER: No RADIOLOGY DEPARTMENT: General X-ray: Exam(s) Completed: Chest X-Ray PERIPHERAL IV DATA: Not applicable SIGNED BY: RT Oneyda(Heath) December 19, 2024 3:53 PM documented in this encounterAult[facility]03-24-2025 NoteHNO ID: [id number] Author: ROLAND CAMARGO RT(R) Service: Radiology Author [...] PATIENT PRESENTS WITH AN IMPLANTABLE OR ATTACHED PARK MANAGER: No RADIOLOGY DEPARTMENT: General X-ray: Exam(s) Completed: Chest X-Ray PERIPHERAL IV DATA: Not applicable SIGNED BY: RT Oneyda(Heath) December 19, 2024 3:[address] [facility]03-24-2025 History of Present illness Narrative* Tara Youngblood, REGIONAL LIAISON.RN FACULTY - 12/19/2024 2:40 PM EDT Chief Complaint Patient presents with: hospital f/up HPI Gracie Banuelos is a 59 year old female who presents here today for Above Complaints. Gracie is an established patient of Dr. Brittni MD. Concerns today.. Hospital follow-up--- [facility] admission from 12/04-12/12 d/t acute [...] help her quit. 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 Chronic recurrent pancreatitis -- had recent surgery [...] airways disease (HCC) Alcohol dependence in remission ([facility]) 07/10/2015 Alcohol use disorder 08/27/2017 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 pancreatitis Alcoholic hepatitis 05/18/2012 Alcoholic liver disease ([facility]) 11/16/2013 Anemia Anxiety with depression Arthritis Asthma Chronic hypoxemic respiratory failure (HCC) COPD (chronic obstructive pulmonary disease) ([facility]) 05/25/2012 DDD (degenerative disc disease), cervical 09/03/2018 [...] to infectious organism 2017 Severe protein-calorie malnutrition ([facility]) 01/07/2019 Stage 3 severe COPD by GOLD classification ([facility]) 2018 Tobacco use greater than 30 years [...] capsule by mouth at bedtime as needed. gyagmh-kibwwbai-gqxifnq (CREON 24) 24,000-76,000 -120,000 unit delayed release [...] ICD10: F17.200 - Cessation encouraged. Pt declined nurses aide to help with cessation. Pt has [...] Patient agreeable to treatment plan. Tara Youngblood APRN.RN FACULTY [address] [place] [address] documented in this encounterAultman [facility]03-24-2025 NoteHNO ID: [id number] Author: TARA YOUNGBLOOD APRN.IGOR Service: ? Author Type: Nurse Practitioner Type: Progress Notes Filed: 12/19/2024 15:33 Note Text: Chief Complaint Patient presents with: hospital f/up HPI Gracie Banuelos is a 59 year old female who presents here today for Above Complaints. Gracie is an established patient of Dr. Brittni MD. Concerns today.. Hospital follow-up--- [facility] admission from 12/04-12/12 d/t acute [...] help her quit. 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 Chronic recurrent pancreatitis -- had recent surgery [...] Stage 3 severe COPD by GOLD classification ([facility]) 2018 Tobacco use greater than 30 years [...] L'SCOPE CHOLECYSTECTOMY 06/14/2021 TUBAL LIGATION HX 1986 Family History FAMILY HISTORY Problem Relation [...] (LOPRESSOR) 25 mg ta (more content not included)...[facility]03-17-2025 Consult note [facility] Medical Records Department [address] [place] [address] Anesthesia Postop Eval II 12/12/24 1751 MR#: [id number] Acct: [id number] Name: GRACIE BANUELOS Rep #:[id number] : 1965 59 From: Jeferson Breaux MD PCP: Dr. Misbah Elkins MD Status:ADM I N Y Race: C Location: [place] [address] 3-1 Anesthesia Postop Eval I Sum Postop Eval Completion status Anesthesia document: Postop Eval 1 completed: Yes Anesthesia Postop Eval I Summary Anesthesia Postop Eval I Summary: Anesthesia Postop Eval I: Assessment Summary Airway patent Yes 12/12/24 13:08 HADOOP CONSULTANT.PKEL Spontaneous unlabored Yes 12/12/24 13:08 HADOOP CONSULTANT.PKEL respirations Mental status Awake,Calm 12/12/24 13:08 HADOOP CONSULTANT.PKEL nausea No 12/12/24 13:08 HADOOP CONSULTANT.PKEL Vomiting No 12/12/24 13:08 HADOOP CONSULTANT.PKEL Anesthesia Postop Eval I: Fluid Summary Crystalloid volume administer 30 12/12/24 13:08 HADOOP CONSULTANT.PKEL (ml) Colloids volume administered ( ml) Blood Product volume administered (ml) Total IV fluid infused 30 12/12/24 13:08 HADOOP CONSULTANT.PKEL Anesthesia Postop Eval I: Summary Notes Anesthesia Complication No 12/12/24 13:08 HADOOP CONSULTANT.PKEL Anesthesia Complication Comment: Post-operative progress note Anesthesia: Postop Eval II Evaluation Mental status: Awake and Calm Pain Level: 1 nausea: No Vomiting: No Complications Anesthesia Complication: No 12/12/24 1751 dillon MENENDEZ> Date _ Jeferson Breaux MD Cosigner Signature: Date CC: ~ Signed [facility]03-17-2025 Discharge summary [facility] Note Date/Time December 12, 2024 3:5 4pm [facility] Medical Records Department [address] [place] [address] Instructions for Home/Discharge Instructions 12/12/24 1547 MR#: [id number] Acct: [id number] Name: GRACIE BANUELOS Rep #:[id number] : 1965 59 From: Anastacia Bonilla MD PCP: Dr. Misbah Elkins MD Status:ADM I N Discharge Instructions [...] Attending Provider: Anastacia Bonilla Primary Care Provider: Misbah Elkins Consulting Providers: Aleta Aguayo; Yrn Kahn [...] Qty: 3 3RF Referrals / Follow Up: Misbah Elkins MD [Primary Care Provider] - Within 1 Week Disposition Disposition (needs filled in before D/C Order can be placed): Home, Self Care 12/12/24 1554<Electronically signed by Anastacia Bonilla MD>Anastacia Bonilla MD CC: Dr. Misbah Elkins MD; Dr. Aleta Aguayo DO; Dr. Yrn Kahn DO ~ Signed [facility] Work Phone: 1(748) 280-765603-17-2025 Discharge summary Author Anastacia [facility] Note Date/Time December 12, 2024 4:5 7pm [facility] Medical Records Department [address] [place] [address] Discharge Summary 12/12/24 1554 MR#: [id number] Acct: [id number] Name: GRACIE BANUELOS Rep #:[id number] : 1965 59 From: Anastacia Bonilla MD PCP: Dr. Misbah Elkins MD Status:ADM I N Location: [place] [address] Providers Date of Admission: 12/04/24 Date of Discharge: 12/12/24 Primary Care Physician: Dr. Misbah Elkins MD Consultations 12/05/24 09:19 Consult: Golf Course Manager / Pulmonary Medicine Routine Consulting Provider: Intensivists/Pulmonary Med Reason for Consult: respiratory failure EMERGENT Consult: No Notified: Yes Date Notified: 12/05/24 Time Notified: 09:19 Method of Notification: Text 12/09/24 17:42 Consult: Gastroenterology Routine Consulting Provider: [facility] Reason for Consult: dysphagia EMERGENT Consult: Urmila MENENDEZ Notified: Yes Date Notified: 12/09/24 Time Notified: [...] H, Differential Comment SCANNED, Diff Path Review May foll, Sodium 137, Potassium 4.1, Chloride 95 L, [...] Attending Provider: Anastacia Bonilla Primary Care Provider: Misbah Elkins Consulting Providers: Aleta Aguayo; Yrn Kahn [...] Qty: 3 3RF Referrals / Follow Up: Misbah Elkins MD [Primary Care Provider] - Within 1 Week Disposition Disposition (needs filled in before D/C Order can be placed): Home, Self Care Charges/Coding Visit Charges Inpatient E&M: 14480 Disch Hosp >30min 12/12/24 1610 <Electronically signed by Anastacia Bonilla MD> Cosigner Signature (if applicable): CC: Dr. Misbah Elkins MD; Dr. Anastacia Bonilla MD~ Signed [...] MD> Cosigner Signature (if applicable): cc: Dr. Misbah Elkins MD; Dr. Anastacia Bonilla MD ~* Signed [facility] Work Phone: 1(898) 769-781603-17-2025 Discharge summary [facility] Medical Records Department [address] [place] [address] Discharge Summary 12/12/24 1554 MR#: [id number] Acct: [id number] Name: GRACIE BANUELOS Rep #:[id number] : 1965 59 From: Anastacia Bonilla MD PCP: Dr. Misbah Elkins MD Status:ADM I N Location: [place] [address] Providers Date of Admission: 12/04/24 Date of Discharge: 12/12/24 Primary Care Physician: Dr. Misbah Elkins MD Consultations 12/05/24 09:19 Consult: Golf Course Manager / Pulmonary Medicine Routine Consulting Provider: Intensivists/Pulmonary Med Reason for Consult: respiratory failure EMERGENT Consult: No Notified: Yes Date Notified: 12/05/24 Time Notified: 09:19 Method of Notification: Text 12/09/24 17:42 Consult: Gastroenterology Routine Consulting Provider: [facility] Reason for Consult: dysphagia EMERGENT Consult: [...] H, Differential Comment SCANNED, Diff Path Review January foll, Sodium 137, Potassium 4.1, Chloride 95 L, [...] Attending Provider: Anastacia Bonilla Primary Care Provider: Misbah Elkins Consulting Providers: Aleta Aguayo; Yrn Kahn [...] Qty: 3 3RF Referrals / Follow Up: Misbah Elkins MD [Primary Care Provider] - Within 1 Week Disposition Disposition (needs filled in before D/C Order can be placed): Home, Self Care Charges/Coding Visit Charges Inpatient E&M: 02437 Disch Hosp >30min 12/12/24 1610 Cosigner Signature (if applicable): CC: Dr. Misbah Elkisn MD; Dr. Anastacia Bonilla MD~ Signed ADDENDUM [...] 1657 Cosigner Signature (if applicable): cc: Dr. Misbah Elkins MD; Dr. Anastacia Bonilla MD ~* Signed [facility]03-17-2025 Discharge summary [facility] Medical Records Department [address] [place] [address] Instructions for Home/Discharge Instructions 12/12/24 1547 MR#: [id number] Acct: [id number] Name: GRACIE BANUELOS Rep #:[id number] : 1965 59 From: Anastacia Bonilla MD PCP: Dr. Misbah Elkins MD Status:ADM I N Discharge Instructions [...] Attending Provider: Anastacia Bonilla Primary Care Provider: Misbah Elkins Consulting Providers: Aleta Aguayo; Yrn Kahn [...] Qty: 3 3RF Referrals / Follow Up: Misbah Elkins MD [Primary Care Provider] - Within 1 Week Disposition Disposition (needs filled in before D/C Order can be placed): Home, Self Care 12/12/24 1554Nangerri Bonilla MD CC: Dr. Misbah Elkins MD; Dr. Aleta Aguayo DO; Dr. Yrn Kahn DO ~ Signed [facility]03-17-2025 [facility]03-17-2025 Consult note Author Guevara Jimenez [facility] Note Date/Time December 12, 2024 1:0 8pm [facility] Medical Records Department [address] [facility] [place] [address] Anesthesia Postop Eval I 12/12/24 1307 MR#: [id number] Acct: [id number] Name: GRACIE BANUELOS Rep #:[id number] : 1965 59 From: Guevara Jimenez CRNA PCP: Dr. Misbah Elkins MD Status:ADM I N Y Race: C Location: [place] [address] 11-26 Anesthesia: Postop Eval I Current Vital Signs [...] borges CRNA> Date _ Guevara Jimenez CRNA [facility] Signature: Date CC: ~ Signed [facility] Work Phone: 1(818) 802-553903-17-2025 Progress note Author Marshal Segura [facility] Note Date/Time December 12, 2024 12: 39pm [facility] Medical Records Department [address] [facility] [place] [address] Progress Note 12/12/24 1237 MR#: [id number] Acct: [id number] Name: GRACIE BANUELOS Rep #:[id number] : 1965 59 From: Marshal Segura DO PCP: Dr. Misbah Elkins MD Status:ADM I N Location: [place] [address] Progress Note Patient has been n.p.o. for [...] ASA of 3. Visit Charges Inpatient E&M: 17656 Subs Hosp L2 12/12/24 1239 <Electronically signed by Marshal Segura DO> Marshal Segura DO Cosigner Signature (if applicable): CC: ~ Signed [facility] Work Phone: 1(824) 485-480003-17-2025 Consult note Author Jeferson [facility] Note Date/Time December 12, 2024 12: 15pm [facility] Medical Records Department [address] [place] [address] Pre-Anesthesia Evaluation 12/12/24 1203 MR#: [id number] Acct: [id number] Name: GRACIE BANUELOS Rep #:[id number] : 1965 59 From: Jeferson Breaux MD PCP: Dr. Misbah Elkins MD Status:ADM I N Y Race: C Location: [place] [address] 3-1 ASA Classification* ASA Classification ASA Classification: [...] possible dilation. Anesthesia History Anesthesia History - fur puller: Anesthesia History - fur puller Hx Hospitalization Yes 08/12/20 11:23 Any Problems [...] sips of water?: Yes PONV PONV - fur puller: PONV - fur puller Female HX of Motion Sickness HX of N/V After Surgery Non-Smoker Duration of Surgery greater than 60 minutes Number of Risk Factors PONV Score Height & Weight Height & Weight: Anesthesia: Height & Weight Height 5 ft 3 in 12/11/24 13:34 Weight: 60.7 kg 12/12/24 05:02 Body Mass Index (BMI) 23.7 12/12/24 05:02 Respiratory Assessment Respiratory Assessment - fur puller: Respiratory Tract Infection Hx - fur puller Hx Respiratory Tract Infection No 06/12/21 02:55 STOP Sleep Apnea STOP Sleep Apnea - fur puller: STOP Sleep Apnea - fur puller Hx Hypertension Yes 12/04/24 20:21 Hx Sleep [...] Tobacco Use History Tobacco Use History - fur puller: Tobacco Use History - fur puller Tobacco Use Cigarettes 01/22/21 20:43 Smoking Status Heavy Smoker (>10/day) 12/06/24 05:11 Hx Tobacco Use Yes 12/04/24 20:21 Years Smoking Packs Smoked per Day Smoking Cessation Date was within the last 15 years Hx Smoking Cessation Date Hx Smoking Cessation No 12/04/24 20:21 Counseling Hematologic Medial History Hematologic Hx - fur puller: 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 Hx of Blood Transfusion No 12/04/24 20:21 [...] confused, unrespo /Reproduction History /Reproductive History - fur puller: /Reproductive Hx- fur puller Hx Now Gestational Age (in weeks): EDC: [...] Allergy Other Verified 12/04/24 15:55 hydrocodone (From Rembrandt) AdvReac Itching Verified 12/04/24 15:55 Family History [...] MD Cosigner Signature: Date CC: ~ Signed [facility] Work Phone: 1(143) 212-141803-17-2025 Progress note Author Gonzalo Sebastian [facility] Note Date/Time December 12, 2024 11: 29am [facility] Medical Records Department [address] [facility] [place] [place] [address] Progress Note - Golf Course Manager 12/12/24 1000 MR#: [id number] Acct: [id number] Name: GRACIE BANUELOS Rep #:[id number] : 1965 59 From: Gonzalo Sebastian DO PCP: Dr. Misbah Elkins MD Status:ADM I N Location: [place] [address] Assessment & Plan Assessment/Plan (1) COPD with [...] medicationsas indicated. This note was generated with [employer] dictation software. It may contain incorrectwords, spelling, [...] insufficiency. Ordering Physician: Gonzalo Sebastian Referring Physician: MISBAH ELKINS Performed By: Grazyna Lazaro RCS Rhythm [...] Affect: anxious Charges/Coding Visit Charges Inpatient E&M: 08598 Subs Hosp L2 12/12/24 1129 <Electronically signed by Gonzalo Sebastian DO> Cosigner Signature (if applicable): CC: ~ Signed [facility] Work Phone: 1(164) 880-786203-17-2025 Consult note [facility] Medical Records Department [address] [place] [address] Anesthesia Postop Eval I 12/12/24 1307 MR#: [id number] Acct: [id number] Name: GRACIE BANUELOS Rep #:[id number] : 1965 59 From: Guevara Jimenez CRNA PCP: Dr. Misbah Elkins MD Status:ADM I N Y Race: C Location: [place] [address] Anesthesia: Postop Eval I Current Vital Signs [...] Eval 1 completed: Yes 12/12/24 1308 y HADOOP CONSULTANT> Date _ Guevara Jimenez HADOOP CONSULTANT Cosigner Signature: Date CC: ~ Signed [facility]03-17-2025 Procedure note [facility] Medical Records Department [address] [place] [address] EGD Report MR#: [id number] Acct: [id number] Name: GRACIE BANUELOS Rep #:[id number] : 1965 59 From: Marshal Segura DO PCP: Dr. Misbah Elkins MD Status:ADM I N Patient Name: [...] present medications. Procedure Code(s): --- Professional --- 34184, Esophagogastroduodenoscopy, flexible, transoral; with insertion of guide wire followed by passage of dilator(s) through esophagus over guide wire CPT copyright 2021 [employer]. All rights reserved. The codes documented in this report are preliminary and upon auto garage attendant review may be revised to meet current compliance requirements. Marshal Segura DO 12/12/2024 1:07:14 PM This report has been signed electronically. Number of Addenda: 0 Note Initiated On: 12/12/2024 12:40 PM 12/12/24 1307 Date _ Marshal Segura DO Cosigner Signature: Date (if indicated) CC: Dr. Misbah Elkins MD; Marshal Segura DO ~ Date Dictated: 12/12/24 1240 Date Transcribed: Specialist Managers: RF Signed [facility]03-17-2025 Procedure note [facility] Medical Records Department [address] [place] [address] Operative Report - CC Letter MR#: [id number] Acct: [id number] Name: GRACIE BANUELOS Rep #:[id number] : 1965 59 From: Marshal Segura DO PCP: Dr. Misbah Elkins MD Status:ADM I N 12/12/2024 Misbah Elkins [address] [place] [address] Re : Upper GI endoscopy procedure for [...] Cosigner Signature: Date (if indicated) CC: Dr. Misbah Elkins MD; Dr. Aleta Aguayo DO; Dr. Yrn Kahn DO; Dr. Anastacia Bonilla MD ~ Date Dictated: 12/12/24 1240 Date Transcribed: Specialist Managers: RF Signed [facility]03-17-2025 Progress note [facility] Medical Records Department [address] [place] [address] Progress Note 12/12/24 1237 MR#: [id number] Acct: [id number] Name: GRACIE BANUELOS Rep #:[id number] : 1965 59 From: Marshal Segura DO PCP: Dr. Misbah Elkins MD Status:ADM I N Location: [place] [address] Progress Note Patient has been n.p.o. for [...] ASA of 3. Visit Charges Inpatient E&M: 37624 Subs Hosp L2 12/12/24 1239 Marshal Friend DO Cosigner Signature (if applicable): CC: ~ Signed [facility]03-17-2025 Consult note [facility] Medical Records Department [address] [place] [address] Pre-Anesthesia Evaluation 12/12/24 1203 MR#: [id number] Acct: [id number] Name: GRACIE BANUELOS Rep #:[id number] : 1965 59 From: Jeferson Breaux MD PCP: Dr. Misbah Elkins MD Status:ADM I N Y Race: C Location: [place] [address] 3-1 ASA Classification* ASA Classification ASA Classification: [...] possible dilation. Anesthesia History Anesthesia History - fur puller: Anesthesia History - fur puller Hx Hospitalization Yes 08/12/20 11:23 Any Problems [...] sips of water?: Yes PONV PONV - fur puller: PONV - fur puller Female HX of Motion Sickness HX of N/V After Surgery Non-Smoker Duration of Surgery greater than 60 minutes Number of Risk Factors PONV Score Height & Weight Height & Weight: Anesthesia: Height & Weight Height 5 ft 3 in 12/11/24 13:34 Weight: 60.7 kg 12/12/24 05:02 Body Mass Index (BMI) 23.7 12/12/24 05:02 Respiratory Assessment Respiratory Assessment - fur puller: Respiratory Tract Infection Hx - fur puller Hx Respiratory Tract Infection No 06/12/21 02:55 STOP Sleep Apnea STOP Sleep Apnea - fur puller: STOP Sleep Apnea - fur puller Hx Hypertension Yes 12/04/24 20:21 Hx Sleep [...] Tobacco Use History Tobacco Use History - fur puller: Tobacco Use History - fur puller Tobacco Use Cigarettes 01/22/21 20:43 Smoking Status Heavy Smoker (>10/day) 12/06/24 05:11 Hx Tobacco Use Yes 12/04/24 20:21 Years Smoking Packs Smoked per Day Smoking Cessation Date was within the last 15 years Hx Smoking Cessation Date Hx Smoking Cessation No 12/04/24 20:21 Counseling Hematologic Medial History Hematologic Hx - fur puller: 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 Hx of Blood Transfusion No 12/04/24 20:21 [...] confused, unrespo /Reproduction History /Reproductive History - fur puller: /Reproductive Hx- fur puller Hx Now Gestational Age (in weeks): EDC: [...] Allergy Other Verified 12/04/24 15:55 hydrocodone (From Rembrandt) AdvReac Itching Verified 12/04/24 15:55 Family History [...] MD Cosigner Signature: Date CC: ~ Signed [facility]03-17-2025 Progress note [facility] Medical Records Department [address] [place] [address] Progress Note - Golf Course Manager 12/12/24 1000 MR#: [id number] Acct: [id number] Name: GRACIE BANUELOS Rep #:[id number] : 1965 59 From: Gonzalo Sebastian DO PCP: Dr. Misbah Elkins MD Status:ADM I N Location: [place] [address] Assessment & Plan Assessment/Plan (1) COPD with [...] medicationsas indicated. This note was generated with [employer] Society dictation software. It may contain incorrectwords, spelling, [...] insufficiency. Ordering Physician: Gonzalo Sebastian Referring Physician: MISBAH ELKINS Performed By: Grazyna Lazaro RCS Rhythm [...] Affect: anxious Charges/Coding Visit Charges Inpatient E&M: 89525 Subs Hosp L2 12/12/24 1129 Cosigner Signature (if applicable): CC: ~ Signed [facility]03-16-2025 Progress note Author Anastacia Bonilla [facility] Note Date/Time December 11, 2024 11: 50[facility] Medical Records Department [address] [place] [address] Progress Note 12/11/24 1134 MR#: [id number] Acct: [id number] Name: GRACIE BANUELOS Rep #:[id number] : 1965 59 From: Anastacia Bonilla MD PCP: Dr. Misbah Elkins MD Status:ADM I N Location: [place] [address] Subjective Subjective Patient seen and examined. She [...] prophylaxis: lovenox Charges/Coding Visit Charges Inpatient E&M: 46952 Subs Hosp L2 12/11/24 1150 <Electronically signed by Anastacia Bonilla MD> Anastacia Bonilla MD Cosigner Signature (if applicable): CC: ~ Signed [facility] Work Phone: 1(130) 738-458903-16-2025 Progress note [facility] Medical Records Department [address] [place] [address] Progress Note 12/11/24 1134 MR#: [id number] Acct: [id number] Name: GRACIE BANUELOS Rep #:[id number] : 1965 59 From: Anastacia Bonilla MD PCP: Dr. Misbah Elkins MD Status:ADM I N Location: [place] [address] Subjective Subjective Patient seen and examined. She [...] % 1 H, Diff Path Review May foll, Platelet Estimate ADEQUATE, Anisocytosis 1+, Microcytosis 1+, [...] prophylaxis: lovenox Charges/Coding Visit Charges Inpatient E&M: 52790 Subs Hosp L2 12/11/24 1150 Anastacia Bonilla MD Cosigner Signature (if applicable): CC: ~ Signed [facility]03-15-2025 Progress note Author Anastacia [facility] Note Date/Time December 10, 2024 12: 56pm [facility] Medical Records Department [address] [place] [address] Progress Note 12/10/24 1251 MR#: [id number] Acct: [id number] Name: GRACIE BANUELOS Rep #:[id number] : 1965 59 From: Anastacia Bonilla MD PCP: Dr. Misbah Ganta, MD Status:ADM I N Location: [place] [address] 1 Subjective Subjective Patient seen and examined. She [...] % (Manual) 1 L, Diff Path Review January, Platelet Estimate A, Plt Morphology Comment G, [...] prophylaxis: lovenox Charges/Coding Visit Charges Inpatient E&M: 00286 Subs Hosp L2 12/10/24 1256 <Electronically signed by Anastacia Bonilla MD> Anastacia Bonilla MD Cosigner Signature (if applicable): CC: ~ Signed [facility] Work Phone: 1(902) 386-936603-15-2025 Progress note [facility] Medical Records Department [address] [place] [address] Progress Note 12/10/24 1251 MR#: [id number] Acct: [id number] Name: GRACIE BANUELOS Rep #:[id number] : 1965 59 From: Anastacia Bonilla MD PCP: Dr. Misbah Elkins MD Status:ADM I N Location: [place] [address] Subjective Subjective Patient seen and examined. She [...] Neutrophils % (Manual) 1L, Diff Path Review January, Platelet Estimate A, Plt Morphology Comment G, [...] prophylaxis: lovenox Charges/Coding Visit Charges Inpatient E&M: 99854 Subs Hosp L2 12/10/24 5712 Anastacia Bonilla MD Cosigner Signature (if applicable): CC: ~ Signed [facility]03-14-2025 Progress note Author Anastacia Bonilla [facility] Note Date/Time December 09, 2024 4:3 3pm [facility] Medical Records Department [address] [place] [address] [place] [address] Progress Note 12/09/24 1351 MR#: [id number] Acct: [id number] Name: GRACIE BANUELOS Rep #:[id number] : 1965 59 From: Anastacia Bonilla MD PCP: Dr. Misbah Elkins MD Status:ADM I N Location: [place] [address] Subjective Subjective Patient seen and examined. She [...] (MDRD) Non-Af 78, BUN/Creatinine Ratio 40.8 H, Objtunp020 H, Calcium 9.8 Micro: Microbiology 12/07/24 14:40 [...] prophylaxis: lovenox Charges/Coding Visit Charges Inpatient E&M: 66591 Subs Hosp L2 12/09/24 1633 <Electronically signed by Anastacia Bonilla MD> Anastacia Bonilla MD Cosigner Signature (if applicable): CC: ~ Signed [facility] Work Phone: 1(310) 319-125203-14-2025 Progress note [facility] Medical Records Department [address] [place] [address] Progress Note 12/09/24 1351 MR#: [id number] Acct: [id number] Name: GRACIE BANUELOS Rep #:[id number] : 1965 59 From: Anastacia Bonilla MD PCP: Dr. Misbah Elkins MD Status:ADM I N Location: [place] [address] Subjective Subjective Patient seen and examined. She [...] (MDRD) Non-Af 78, BUN/Creatinine Ratio 40.8 H, [id number] H, Calcium 9.8 Micro: Microbiology 12/07/24 14:40 [...] prophylaxis: lovenox Charges/Coding Visit Charges Inpatient E&M: 38420 Subs Hosp L2 12/09/24 1633 Anastacia Bonilla MD Cosigner Signature (if applicable): CC: ~ Signed [facility]03-14-2025 Progress note Author Gonzalo Sebastian [facility] Note Date/Time December 09, 2024 11: 16am [facility] Medical Records Department [address] [place] [address] Progress Note - Golf Course Manager [address] MR#: [id number] Acct: [id number] Name: GRACIE BANUELOS Rep #:[id number] : 1965 59 From: Gonzalo Sebastian DO PCP: Dr. Misbah Elkins MD Status:ADM I N Location: [place] [address] Assessment & Plan Assessment/Plan (1) COPD with [...] medicationsas indicated. This note was generated with CatchFreeation software. It may contain incorrectwords, spelling, and [...] insufficiency. Ordering Physician: Gonzalo Sebastian Referring Physician: MISBAH ELKINS Performed By: Grazyna Lazaro RCS Rhythm [...] Affect: anxious Charges/Coding Visit Charges Inpatient E&M: 92024 Subs Hosp L2 12/09/24 1116 <Electronically signed by Gonzalo Sebastian DO> Cosigner Signature (if applicable): CC: ~ Signed [facility] Work Phone: 1(713) 912-759003-14-2025 Progress note [facility] Medical Records Department [address] [place] [address] Progress Note - Golf Course Manager 12/09/24 08 MR#: [id number] Acct: [id number] Name: GRACIE BANUELOS Rep #:[id number] : 1965 59 From: Gonzalo Sebastian DO PCP: Dr. Misbah Elkins MD Status:ADM I N Location: [place] [address] Assessment & Plan Assessment/Plan (1) COPD with [...] medicationsas indicated. This note was generated with The Society dictation software. It may contain incorrectwords, spelling, [...] insufficiency. Ordering Physician: Gonzalo Sebastian Referring Physician: MISBAH ELKINS Performed By: Grazyna Lazaro RCS Rhythm [...] Affect: anxious Charges/Coding Visit Charges Inpatient E&M: 52513 Subs Hosp L2 12/09/24 1116 Cosigner Signature (if applicable): CC: ~ Signed [facility]03-13-2025 Progress note [facility] Note Date/Time December 08, 2024 4:2 3pm [facility] Medical Records Department [address] [place] [address] Progress Note - Hospitalist 12/08/24 1620 MR#: [id number] Acct: [id number] Name: GRACIE BANUELOS Rep #:[id number] : 1965 59 From: Yrn Kahn DO PCP: Dr. Misbah Elkins MD Status:ADM I N Location: [place] [address] Reason for Visit Reason for Visit: Diagnoses [...] 35 minutes Charges/Coding Visit Charges Inpatient E&M: 82253 Subs Hosp L2 12/08/24 9555 <Electronically signed by Yrn Kahn DO> Cosigner Signature (if applicable): CC: ~ Signed [facility] Work Phone: 1(798) 429-935803-13-2025 Progress note [facility] Medical Records Department [address] [place] [address] Progress Note - Hospitalist 12/08/24 1620 MR#: [id number] Acct: [id number] Name: GRACIE BANUELOS Rep #:[id number] : 1965 59 From: Yrn Kahn DO PCP: Dr. Misbah Elkins MD Status:ADM I N Location: [place] [address] Reason for Visit Reason for Visit: Diagnoses [...] 35 minutes Charges/Coding Visit Charges Inpatient E&M: 85973 Subs Hosp L2 12/08/24 1623 Cosigner Signature (if applicable): CC: ~ Signed [facility]03-13-2025 Procedure note [facility] Speech Pathology [address] [place] [address] Modified Barium Swallow Study MR#: [id number] Acct: [id number] Name: GRACIE BANUELOS Rep #:[id number] : 1965 59 From: Maksim Ramos, [facility]-[employer] Modified Barium Swallow Patient Information Study Date: [...] History: Pt presented to the ED at [facility] on 12/04/2024 with the chief [...] Result: 3= enters airways/above vocal folds/not ejected Nicholson Thick Liquid via small single sip: cup: [...] Status Active ST Patient: Active Contact Information [facility] Speech Therapy:: Maksim Up M.A. CCC-[employer]ER? Speech-Language Pathologist?? [facility] [address] [place] [address]? [email or web address]?? [phone] 12/08/24 1525 CARLOS Duenas-[employer]RIER TAILER> Date/Time Maksim Up M.A., CCC-[employer] TA[employer]ER Co-Signature Required for all Medicare patients Date/Time Co-Signature CC: ~ [facility]03-13-2025 Progress note Author Gonzalo Sebastian [facility] Note Date/Time December 08, 2024 10: 27am [facility] Medical Records Department [address] [place] [address] Progress Note - Golf Course Manager 12/08/24 0944 MR#: [id number] Acct: [id number] Name: GRACEI BANUELOS Salvatore Rep #:[id number] : 1965 59 From: Gonzalo Sebastian DO PCP: Dr. Misbah Elkins MD Status:ADM I N Location: [place] [address] Assessment & Plan Assessment/Plan (1) COPD with [...] medicationsas indicated. This note was generated with The Society dictation software. It may contain incorrectwords, spelling, [...] insufficiency. Ordering Physician: Gonzalo Sebastian Referring Physician: MISBAH ELKINS Performed By: Grazyna Lazaro RCS Rhythm [...] Affect: anxious Charges/Coding Visit Charges Inpatient E&M: 86747 Subs Hosp L2 12/08/24 1027 <Electronically signed by Gonzalo Sebastian DO> Cosigner Signature (if applicable): CC: ~ Signed [facility] Work Phone: 1([phone] 248-123803-13-2025 Progress note [facility] Medical Records Department [address] [place] [address] Progress Note - Golf Course Manager 12/08/24 0944 MR#: [id number] Acct: [id number] Name: GRACIE BANUELOS Rep #:[id number] : 1965 59 From: Gonzalo Sebastian DO PCP: Dr. Misbah Elkins MD Status:ADM I N Location: [place] [address] Assessment & Plan Assessment/Plan (1) COPD with [...] medicationsas indicated. This note was generated with CatchFreeation software. It may contain incorrectwords, spelling, and [...] insufficiency. Ordering Physician: Gonzalo Sebastian Referring Physician: MISBAH ELKINS Performed By: Grazyna Lazaro RCS Rhythm [...] Affect: anxious Charges/Coding Visit Charges Inpatient E&M: 26238 Subs Hosp L2 12/08/24 1027 Cosigner Signature (if applicable): CC: ~ Signed [facility]03-12-2025 Progress note Author Yrn Kahn [facility] Note Date/Time December 07, 2024 5:4 7pm [facility] Medical Records Department [address] [place] [address] Progress Note - Hospitalist 12/07/24 1746 MR#: [id number] Acct: [id number] Name: GRACIE BANUELOS Rep #:[id number] : 1965 59 From: Yrn Kahn DO PCP: Dr. Misbah Elkins MD Status:ADM I N Location: [place] [address] Reason for Visit Reason for Visit: Diagnoses [...] 35 minutes Charges/Coding Visit Charges Inpatient E&M: 85147 Subs Hosp L2 12/07/24 1747 <Electronically signed by Yrn Kahn DO> Cosigner Signature (if applicable): CC: ~ Signed [facility] Work Phone: 1(973) 419-747603-12-2025 Progress note [facility] Medical Records Department [address] [place] [address] Progress Note - Hospitalist 12/07/24 1746 MR#: [id number] Acct: [id number] Name: GRACIE BANUELOS Rep #:[id number] : 1965 59 From: Yrn Kahn DO PCP: Dr. Misbah Elkins MD Status:ADM I N Location: [place] [address] Reason for Visit Reason for Visit: Diagnoses [...] 35 minutes Charges/Coding Visit Charges Inpatient E&M: 02069 Subs Hosp L2 12/07/24 9999 Cosigner Signature (if applicable): CC: ~ Signed [facility]03-12-2025 Progress note Author Gonzalo Sebastian [facility] Note Date/Time December 07, 2024 12: 23pm [facility] Medical Records Department [address] [place] [address] Progress Note - Golf Course Manager 12/07/24 0959 MR#: [id number] Acct: [id number] Name: GRACIE BANUELOS Rep #:[id number] : 1965 59 From: Gonzalo Sebastian DO PCP: Dr. Misbah Elkins MD Status:ADM I N Location: [place] [address] Assessment & Plan Assessment/Plan (1) COPD with [...] medicationsas indicated. This note was generated with The Society dictation software. It may contain incorrectwords, spelling, [...] (Auto) 88.4 H, Lymph % (Auto) 4.5L, Emmons % (Auto) 6.0, Eos % (Auto) 0.0, [...] insufficiency. Ordering Physician: Gonzalo Sebastian Referring Physician: MISBAH ELKINS Performed By: Grazyna Lazaro RCS Rhythm [...] Affect: anxious Charges/Coding Visit Charges Inpatient E&M: 46647 Subs Hosp L2 12/07/24 1223 <Electronically signed by Gonzalo Sebastian DO> Cosigner Signature (if applicable): CC: ~ Signed [facility] Work Phone: 1([phone] 294-962303-12-2025 Progress note [facility] Medical Records Department [address] [place] [address] Progress Note - Golf Course Manager 12/07/24 0959 MR#: [id number] Acct: [id number] Name: GRACIE BANUELOS Rep #:[id number] : 1965 59 From: Gonzalo Sebastian DO PCP: Dr. Misbah Elkins MD Status:ADM I N Location: [place] [address] Assessment & Plan Assessment/Plan (1) COPD with [...] medicationsas indicated. This note was generated with The Society dictation software. It may contain incorrectwords, spelling, [...] (Auto) 88.4 H, Lymph % (Auto) 4.5L, Emmons % (Auto) 6.0, Eos % (Auto) 0.0, [...] insufficiency. Ordering Physician: Gonzalo Sebastian Referring Physician: MISBAH ELKINS Performed By: Grazyna Lazaro RCS Rhythm [...] Affect: anxious Charges/Coding Visit Charges Inpatient E&M: 39847 Subs Hosp L2 12/07/24 1223 Cosigner Signature (if applicable): CC: ~ Signed [facility]03-11-2025 Progress note Author Yrn Kahn [facility] Note Date/Time December 06, 2024 8:2 6pm [facility] Medical Records Department [address] [place] [address] Progress Note - Hospitalist 12/06/242023 MR#: [id number] Acct: [id number] Name: BANUELOSGRACIE Salvatore Rep #:[id number] : 1965 59 From: Yrn Kahn DO PCP: Dr. Misbah Elkins MD Status:ADM I N Location: [place] [address] Reason for Visit Reason for Visit: Diagnoses [...] (Auto) 88.4 H, Lymph % (Auto) 4.5L, Emmons % (Auto) 6.0, Eos % (Auto) 0.0, [...] insufficiency. Ordering Physician: Gonzalo Sebastian Referring Physician: MISBAH ELKINS Performed By: Grazyna Lazaro RCS Rhythm [...] 35 minutes Charges/Coding Visit Charges Inpatient E&M: 53627 Subs Hosp L2 12/06/242025 <Electronically signed by Yrn Kahn DO> Cosigner Signature (if applicable): CC: ~ Signed [facility] Work Phone: 1(674) 750-705503-11-2025 Progress note Author [facility] Note Date/Time December 06, 2024 8:2 4pm [facility] Medical Records Department [address] [place] [address] Progress Note - Hospitalist 12/05/241943 MR#: [id number] Acct: [id number] Name: GRACIE BANUELOS Rep #:[id number] : 1965 59 From: Yrn Kahn DO PCP: Dr. Misbah Elkins MD Status:ADM I N Location: [place] [address] Reason for Visit Reason for Visit: Diagnoses [...] 89.0 H, Lymph % (Auto) 5.1 L, Emmons % (Auto) 4.0, Eos % (Auto) 0.1, [...] 50 minutes Charges/Coding Visit Charges Inpatient E&M: 98628 Subs Hosp L3 12/06/242023 <Electronically signed by Yrn Kahn DO> Cosigner Signature (if applicable): CC: ~ Signed [facility] Work Phone: 1(224) 373-672103-11-2025 Progress note [facility] Medical Records Department [address] [place] [address] Progress Note - Hospitalist 12/06/242023 MR#: [id number] Acct: [id number] Name: GRACIE BANUELOS Rep #:[id number] : 1965 59 From: Yrn Kahn DO PCP: Dr. Misbah Elkins MD Status:ADM I N Location: [place] [address] Reason for Visit Reason for Visit: Diagnoses [...] (Auto) 88.4 H, Lymph % (Auto) 4.5L, Emmons % (Auto) 6.0, Eos % (Auto) 0.0, [...] insufficiency. Ordering Physician: Gonzalo Sebastian Referring Physician: MISBAH ELKINS Performed By: Grazyna Lazaro RCS Rhythm [...] 35 minutes Charges/Coding Visit Charges Inpatient E&M: 34663 Subs Hosp L2 12/06/242025 Cosigner Signature (if applicable): CC: ~ Signed [facility]03-11-2025 Progress note [facility] Medical Records Department [address] [place] [address] Progress Note - Hospitalist 12/05/241943 MR#: [id number] Acct: [id number] Name: GRACIE BANUELOS Rep #:[id number] : 1965 59 From: Yrn Kahn DO PCP: Dr. Misbah Elkins MD Status:ADM I N Location: [place] [address] Reason for Visit Reason for Visit: Diagnoses [...] 89.0 H, Lymph % (Auto) 5.1 L, Emmons % (Auto) 4.0, Eos % (Auto) 0.1, [...] 50 minutes Charges/Coding Visit Charges Inpatient E&M: 78066 Subs Hosp L3 12/06/242023 Cosigner Signature (if applicable): CC: ~ Signed [facility]03-11-2025 Progress note Author Gonzalo Sebastian [facility] Note Date/Time December 06, 2024 11: 38am [facility] Medical Records Department [address] [place] [address] Progress Note - Golf Course Manager 12/06/24 1134 MR#: [id number] Acct: [id number] Name: GRACIE BANUELOS Rep #:[id number] : 1965 59 From: Gonzalo Sebastian DO PCP: Dr. Misbah Elkins MD Status:ADM I N Location: [place] [address] Assessment & Plan Assessment/Plan (1) COPD with [...] medicationsas indicated. This note was generated with CatchFreeation software. It may contain incorrectwords, spelling, and [...] (Auto) 88.4 H, Lymph % (Auto) 4.5L, Emmons % (Auto) 6.0, Eos % (Auto) 0.0, [...] Affect: anxious Charges/Coding Visit Charges Inpatient E&M: 23143 Subs Hosp L2 12/06/24 1138 <Electronically signed by Gonzalo Sebastian DO> Cosigner Signature (if applicable): CC: ~ Signed [facility] Work Phone: 1(292) 185-510503-11-2025 Progress note [facility] Medical Records Department [address] [place] [address] Progress Note - Golf Course Manager 12/06/24 1134 MR#: [id number] Acct: [id number] Name: GRACIE BANUELOS Rep #:[id number] : 1965 59 From: Gonzalo Sebastian DO PCP: Dr. Misbah Elkins MD Status:ADM I N Location: [place] [address] Assessment & Plan Assessment/Plan (1) COPD with [...] medicationsas indicated. This note was generated with The Society dictation software. It may contain incorrectwords, spelling, [...] (Auto) 88.4 H, Lymph % (Auto) 4.5L, Emmons % (Auto) 6.0, Eos % (Auto) 0.0, [...] Affect: anxious Charges/Coding Visit Charges Inpatient E&M: 06496 Subs Hosp L2 12/06/24 1138 Cosigner Signature (if applicable): CC: ~ Signed [facility]03-10-2025 Consult note Author Gonzalo Sebastian [facility] Note Date/Time December 05, 2024 1:2 4pm [facility] Medical Records Department [address] [place] [address] Consultation - Golf Course Manager 12/05/24 1314 MR#: [id number] Acct: [id number] Name: GRACIE BANUELOS Rep #:[id number] : 1965 59 From: Gonzalo Sebastian DO PCP: Dr. Misbah Elkins MD Status:ADM I N Location: [place] [address] Assessment & Plan Assessment/Plan (1) COPD with [...] should be noted that the patient had [facility] hospital admission in October 2022 in the setting of a panic attack with generalized anxiety disorder leading to acute decompensation in her respiratory status. 2. Chronic tobacco dependency/bipolar disorder/depression/anxiety/chronic pancreatitis Complicates care, management, recovery and prognosis. Continue home medicationsas indicated. This note was generated with CatchFreeation software. It may contain incorrectwords, spelling, and [...] felt as if she was being suffocated. [facility] Medical History Pancreatic stones HLD (hyperlipidemia) History [...] Allergy Other Verified 12/04/24 15:55 hydrocodone (From Rembrandt) AdvReac Itching Verified 12/04/24 15:55 Family History [...] 80.5 H, Lymph % (Auto) 6.8 L, Emmons % (Auto) 10.4 H, Eos % (Auto) [...] 89.0 H, Lymph % (Auto) 5.1 L, Emmons % (Auto) 4.0, Eos % (Auto) 0.1, [...] Location: [facility] Charges/Coding Visit Charges Inpatient E&M: 07200 Init Hosp L3 12/05/24 1324 <Electronically signed by Gonzalo Sebastian DO> Cosigner Signature (if applicable): CC: Dr. Misbah Elkins MD~ Signed [facility] Work Phone: 1(985) 725-681303-10-2025 Consult note [facility] Medical Records Department [facility] [place] [address] Consultation - Golf Course Manager 12/05/24 1311 MR#: [id number] Acct: [id number] Name: GRACIE BANUELOS Rep #:[id number] : 1965 59 From: Gonzalo Sebastian DO PCP: Dr. Misbah Elkins MD Status:ADM I N Location: [place] [address] Assessment & Plan Assessment/Plan (1) COPD with [...] should be noted that the patient had [facility] admission in October 2022 in the setting of a panic attack with generalized anxiety disorder leading to acute decompensation in her respiratory status. 2. Chronic tobacco dependency/bipolar disorder/depression/anxiety/chronic pancreatitis Complicates care, management, recovery and prognosis. Continue home medicationsas indicated. This note was generated with CatchFreeation software. It may contain incorrectwords, spelling, and [...] felt as if she was being suffocated. [facility] Medical History Pancreatic stones HLD (hyperlipidemia) History [...] Allergy Other Verified 12/04/24 15:55 hydrocodone (From Rembrandt) AdvReac Itching Verified 12/04/24 15:55 Family History [...] 80.5 H, Lymph % (Auto) 6.8 L, Emmons % (Auto) 10.4 H, Eos % (Auto) [...] 89.0 H, Lymph % (Auto) 5.1 L, Emmons % (Auto) 4.0, Eos % (Auto) 0.1, [...] entered Not entered Clinical Comments 425 60 82 Rhythm Strip Rhythm Strip: Sinus Tach Rate: [...] Location: [facility] Charges/Coding Visit Charges Inpatient E&M: 97661 Init Hosp L3 12/05/24 1324 Cosigner Signature (if applicable): CC: Dr. Misbah Elkins MD~ Signed [facility]03-10-2025 Telephone encounter Note* Telephone Encounter - Juan Senior APRN.CNP - 12/05/2024 10:49 AM EDT Called to follow up with patient after EUS on 12/01. No answer, left voicemail with call back number. [facility] Work Phone: 1(617) 218-650403-10-2025 Miscellaneous Notes* Telephone Encounter - Juan Senior APRN.CNP - 12/05/2024 10:49 AM EDT Called to follow up with patient after EUS on 12/01. No answer, left voicemail with call back number. documented in this encounterA[facility] History and physical note Author Aleta Aguayo [facility] Note Date/Time December 04, 2024 9:09 pm [facility] Medical Records Department [address] [place] [address] H&P Exam - Hospitalist 12/04/24 1806 MR#: [id number] Acct: [id number] Name: GRACIE BANUELOS Rep #:[id number] : 1965 59 From: Aleta Aguayo DO PCP: Dr. Misbah Elkins MD Status:ADM I N Location: [address] 1 HPI - General General Date of Admission: 12/04/24 Date of Service: 12/04/24 Chief Complaint: Shortness of Breath HPI Narrative GRACIE BANUELOS, is a 59 F who presented to the ED at [facility] on 12/04/2024 with the chief complaint of SOB. Pt has a h/o chronic pancreatitis and had a pancreatic block done at [facility] Thu of last week as a an [...] waiting abdominal pain despite procedure done at [facility] and has follow-up with them upcoming. She has followed up with pulmonary medicine here previously and her FEV1 on [facility] recent PFTs is 33% predicted. Again she [...] emergency department request for admission was made. [facility] Medical History Pancreatic stones HLD (hyperlipidemia) History [...] Allergy Other Verified 12/04/24 15:55 hydrocodone (From Rembrandt) AdvReac Itching Verified 12/04/24 15:55 Family History [...] 80.5 H, Lymph % (Auto) 6.8 L, Emmons % (Auto) 10.4 H, Eos % (Auto) [...] of admission Charges/Coding Visit Charges Inpatient E&M: 72467 Init Hosp L2 12/04/242108 <Electronically signed by Aleta Aguayo DO> Cosigner Signature (if applicable): CC: Dr. Misbah Elkins MD; Dr. Aleta Aguayo DO~ Signed [facility] Work Phone: 1(713) 573-418003-09-2025 History and physical note [facility] Medical Records Department [address] [place] [address] [place] [address] H&P Exam - Hospitalist 12/04/24 1804 MR#: [id number] Acct: [id number] Name: GRACIE BANUELOS Rep #:[id number] : 1965 59 From: Aleta Aguayo DO PCP: Dr. Misbah Elkins MD Status:ADM I N Location: [place] [id number]- 1 HPI - General General Date of Admission: 12/04/24 Date of Service: 12/04/24 Chief Complaint: Shortness of Breath HPI Narrative GRACIE BANUELOS, is a 59 F who presented to the ED at [facility] on 12/04/2024 with the chief complaint of SOB.Pt has a h/o chronic pancreatitis and had a pancreatic block done at [facility] Thu of last week as a an [...] still waiting abdominal pain despiteprocedure done at [facility] and has follow-up with them upcoming. She has followed up with pulmonary medicine here previously and her FEV1 on [facility] recent PFTs is 33% predicted. Again she [...] emergency department request for admission was made. [facility] Medical History Pancreatic stones HLD (hyperlipidemia) History [...] Allergy Other Verified 12/04/24 15:55 hydrocodone (From Rembrandt) AdvReac Itching Verified 12/04/24 15:55 Family History [...] 80.5 H, Lymph % (Auto) 6.8 L, Emmons % (Auto) 10.4 H, Eos % (Auto) [...] of admission Charges/Coding Visit Charges Inpatient E&M: 77299 Init Hosp L2 12/04/242108 Cosigner Signature (if applicable): CC: Dr. Misbah Elkins MD; Dr. Aleta Aguayo DO~ Signed [facility]03-09-2025 Discharge summary Author Franco Inman [facility] Note Date/Time December 04, 2024 6:46 pm [facility] Medical Records Department [address] [place] [address] Emergency Department Summary 12/04/24 MR#: [id number] Acct: [id number] Name: GRACIE BANUELOS Rep #:[id number] : 1965 59 From: Franco Inman MD PCP: Dr. Misbah Elkins MD Status:ADM I N Location: [place] [address] HPI History of Present Illness Chief Complaint: [...] had a pancreatic block done at the [facility] was discharged the same day. She is [...] Allergy Other Verified 12/04/24 15:55 hydrocodone (From Rembrandt) AdvReac Itching Verified 12/04/24 15:55 Family History [...] Back nontender. Moving all 4 extremities. Normal operations specialist strength. Normal dorsi plantarflexion. Calves are nontender [...] 80.5 H Lymph % (Auto) 6.8 L Emmons % (Auto) 10.4 H Eos % (Auto) [...] No acute airspace abnormality. Emphysema. Reading Location: [facility] Chest x-ray, 2 views, AP and lateral, [...] rate of 121. No acute signs of IN or ischemia. No dysrhythmia. Discharge Plan Dx/Rx/DC Orders Clinical Impression: Viral URI, COPD exacerbation, Hypoxia, Chronic pancreatitis Disposition Disposition: Acute Care Hospital [facility] What to do if you have Problems For any increased pain, shortness of breath, bleeding, nausea or vomiting, chestpain, or any unexpected problems, contact your Primary Care Provider. Call [facility] ([phone]) or report to the closest Emergency Room. Call 911 if necessary. 12/04/24 184 <Electronically signed by Franco Inman MD> Cosigner Signature (if applicable): CC: Dr. Misbah Elkins MD ~ Signed [facility] Work Phone: 1(828) 757-808903-09-2025 Evaluation note* Diagnosis Onset Date Resolution Status Admit Date Acute hypoxic respiratory failure acute December 04, 2024 6:03pm Pulmonary nodule acute November 6:03pm Stenosis of left subclavian artery acute December 04, 2024 6:03pm Chronic pancreatitis chronic Lino h 2024 6:03pm COPD with acute exacerbation chronic December 04, 2024 6:03pm [facility] Work Phone: 1(554) 570-808203-09-2025 Evaluation note* Diagnosis Onset Date Resolution Status [...] 2024 9:59am Anxiety and depression chronic [facility] 2024 9:59am Asthma chronic December 23 9:59am Chronic pancreatitis chronic Lino h 2024 9:59am Chronic respiratory failure with hypoxia chronic December 23, 2024 9:59am COPD (chronic obstructive pulmonary disease) chronic December 23 025 9:59am Smoking greater than 30 pack years chronic December 23, 2024 9:59am [facility] Work Phone: 1(263) 179-678103-09-2025 Evaluation note* Diagnosis Onset Date Resolution Status [...] 2024 9:59am Anxiety and depression chronic [facility] 2024 9:59am Asthma chronic December 23 9:59am [...] years chronic February 08, 2025 1 :07pm [facility] Work Phone: 1(896) 498-364903-09-2025 Evaluation note* Diagnosis Onset Date Resolution Status [...] 2024 9:59am Anxiety and depression chronic Ma [facility] 2024 9:59am Asthma chronic December 23 9:59am [...] years chronic February 08, 2025 1 :07pm Abdominal pain acute March 13, 2025 11:28pm Chronic pancreatitis chronic March 13, 2025 11:28pm COPD (chronic obstructive pulmonary disease) chronic March 13 11:28pm Smoking greater than 30 pack years chronic March 13, 2025 11:28pm [facility] Work Phone: 1(359) 948-935703-09-2025 Evaluation note* Diagnosis Onset Date Resolution Status [...] 2024 9:59am Anxiety and depression chronic Ma [facility] 2024 9:59am Asthma chronic December 23 9:59am [...] years chronic February 08, 2025 1 :07pm Abdominal pain acute March 13, 2025 11:28pm Acute on chronic respiratory failure with hypoxia and hypercapnia chronic March 13, 2025 11:28pm Chronic pancreatitis chronic March 13, 2025 11:28pm COPD (chronic obstructive pulmonary disease) chronic March 13 11:28pm Smoking greater than 30 pack years chronic March 13, 2025 11:28pm [facility] Work Phone: 1(957) 549-956403-09-2025 Radiology Diagnostic study note [facility] Imaging Services [address] [place] [address] CTA Chest W/WO Contrast MR#: [id number] Acct: [id number] Name: GRACIE BANUELOS Rep #: [id number] : 1965 F 59 From: Jay Juarez DO PCP: Dr. Misbah Elkins MD Status: ADM I N Study:CTA Chest W/WO Contrast Date of Exam: 12/04/24 Exam# [id number] Ordering Dr: Kaitlin Aguayo DO PROCEDURE: CTA [...] reconstruction technique). Reading Location: [facility] CC: Dr. Misbah Elkins MD; Dr. Aleta Aguayo, DO ~ Specialist Managers: Signed [facility]03-09-2025 Discharge summary [facility] Medical Records Department [address] [place] [address] Emergency Department Summary 12/04/24 MR#: [id number] Acct: [id number] Name: GRACIE BANUELOS Rep #:[id number] : 1965 59 From: Franco Inman MD PCP: Dr. Misbah Elkins MD Status:ADM I N Location: [place] [address] HPI History of Present Illness Chief Complaint: [...] had a pancreatic block done at the [facility] was discharged the same day. Sheis on [...] Allergy Other Verified 12/04/24 15:55 hydrocodone (From Rembrandt) AdvReac Itching Verified 12/04/24 15:55 Family History [...] Back nontender. Moving all 4 extremities. Normal operations specialist strength. Normal dorsi plantarflexion. Calves are nontender [...] 80.5 H Lymph % (Auto) 6.8 L Emmons % (Auto) 10.4 H Eos % (Auto) [...] No acute airspace abnormality. Emphysema. [facility] x-[facility], 2 views, AP and lateral, [...] rate of 121. No acute signs of IN or ischemia. No dysrhythmia. Discharge Plan Dx/Rx/DC Orders Clinical Impression: Viral URI, COPD exacerbation, Hypoxia, Chronic pancreatitis Disposition Disposition: Acute Care Hospital [facility] What to do if you have Problems For any increased pain, shortness of breath, bleeding, nausea or vomiting, chestpain, or any unexpected problems, contact your Primary Care Provider. Call [facility] ([phone]) or report tothe closest Emergency Room. Call 911 if necessary. 12/04/24 1846 Cosigner Signature (if applicable): CC: Dr. Misbah Elkins MD ~ Signed [facility]03-09-2025 Radiology Diagnostic study note [facility] Imaging Services [address] [place] [address] Chest PA and Lateral MR#: [id number] Acct: [id number] Name: GRACIE BANUELOS Rep #: [id number] : 1965 F 59 From: Jay Juarez DO PCP: Dr. Misbah Elkins MD Status: REG E R Study:Chest PA and Lateral Date of Exam: 12/04/24 Exam# [id number] Ordering Dr: Ema Inman MD PROCEDURE: CHEST PA AND LATERAL REASON FOR EXAM: Cough, hypoxia TECHNIQUE: Frontal and lateral views of the chest. COMPARISON: 01/02/2024 FINDINGS: Cardiomediastinal silhouette is within normal limits. No focal consolidation, sizeable pleural effusion or pneumothorax. Moderate emphysema. RAD/Chest PA and Lateral IMPRESSION: No acute airspace abnormality. Emphysema. [facility] CC: Dr. Misbah Elkins MD; Dr. Franco Inman MD ~ Specialist Managers: Signed [facility]03-09-2025 Discharge summary Author Franco Inman [facility] Note Date/Time December 04, 2024 6:46 pm [facility] Medical Records Department [address] [place] [address] Emergency Department Summary 12/04/24 MR#: [id number] Acct: [id number] Name: GRACIE BANUELOS Rep #:[id number] : 1965 59 From: Franco Inman MD PCP: Dr. Misbah Elkins MD Status:ADM I N Location: [place] [address] HPI History of Present Illness Chief Complaint: [...] had a pancreatic block done at the [facility] was discharged the same day. She is [...] or Recent travel Recent Illness/Hospitalization: No PFSH PFS Medical History Pancreatic stones HLD (hyperlipidemia) History [...] Allergy Other Verified 12/04/24 15:55 hydrocodone (From Rembrandt) AdvReac Itching Verified 12/04/24 15:55 Family History [...] Back nontender. Moving all 4 extremities. Normal operations specialist strength. Normal dorsi plantarflexion. Calves are nontender [...] 80.5 H Lymph % (Auto) 6.8 L Emmons % (Auto) 10.4 H Eos % (Auto) [...] rate of 121. No acute signs of IN or ischemia. No dysrhythmia. Discharge Plan Dx/Rx/DC Orders Clinical Impression: Viral URI, COPD exacerbation, Hypoxia, Chronic pancreatitis Disposition Disposition: Acute Care Hospital [facility] What to do if you have Problems For any increased pain, shortness of breath, bleeding, nausea or vomiting, chestpain, or any unexpected problems, contact your Primary Care Provider. Call [facility] ([phone]) or report to the closest Emergency Room. Call 911 if necessary. 12/04/24 1846 <Electronically signed by Franco Inman MD> Cosigner Signature (if applicable): CC: Dr. Misbah Elkins MD ~ Signed [facility] Work Phone: [phone] 630-222903-06-2025 Telephone encounter Note* Telephone Encounter - Jane Farrell MD - 12/01/2024 11:58 AM EST Orders [facility]03-06-2025 Miscellaneous Notes* Telephone Encounter - Jane Farrell MD - 12/01/2024 11:58 AM EST Orders documented in this encounterA[facility]03-06-2025 Nurse Note* Reshma Telles RN - 12/01/2024 [...] MATERIAL: Procedure Discharge Instructions REFERRAL (RECOMMENDATION): None [facility]03-06-2025 Nurse Note* Reshma Telles RN - 12/01/2024 [...] RN In Department: GASTROENTEROLOGY documented in this encounterA[facility]03-06-2025 NoteQ3 Patient Name: Gracie Banuelos Procedure Date: 12/01/2024 9:53 AM Date of : 1965 Admit Type: Outpatient Age: 59 Gender: Female Note Status: Finalized Attending MD: Jane Farrell MD, [id number] Procedure: Upper EUS Indications: Celiac plexus block [...] present medications. Procedure Code(s): --- Professional --- 89328, Esophagogastroduodenoscopy, flexible, transoral; with endoscopic ultrasound examination limited to the esophagus, stomach or duodenum, and adjacent structures Diagnosis Code(s): --- Professional --- K86.9, Disease of pancreas, unspecified K86.1, Other chronic pancreatitis R93.3, Abnormal findings on diagnostic imaging of other parts of digestive tract CPT copyright 2020 [employer]. All rights reserved. Attending Participation: I personally performed the entire procedure. Scope In: 10:14:38 AM Scope Out: 10:28:19 AM MD Jane Fields MD 12/01/2024 10:35:18 AM This report has been signed electronically by Jane Farrell MD Number of Addenda: 0 Note Initiated On: 12/01/2024 9:53 [id number] NoteQ3 Patient Name: Gracie Banuelos Procedure Date: 12/01/2024 9:53 AM Date of : 1965 Admit Type: Outpatient Age: 59 Gender: Female Note Status: Finalized Attending MD: Jane Farrell MD, [id number] Procedure: Upper EUS Indications: Celiac plexus block [...] present medications. Procedure Code(s): --- Professional --- 46492, Esophagogastroduodenoscopy, flexible, transoral; with endoscopic ultrasound examination limited to the esophagus, stomach or duodenum, and adjacent structures Diagnosis Code(s): --- Professional --- K86.9, Disease of pancreas, unspecified K86.1, Other chronic pancreatitis R93.3, Abnormal findings on diagnostic imaging of other parts of digestive tract CPT copyright 2020 [employer]. All rights reserved. Attending Participation: I personally performed the entire procedure. Scope In: 10:14:38 AM Scope Out: 10:28:19 AM MD Jane Fields MD 12/01/2024 10:35:18 AM This report has been signed electronically by Jane Farrell MD Number of Addenda: 0 Note Initiated On: 12/01/2024 9:53 [facility]03-06-2025 Nurse Note* Kathie Dorantes RN - [...] By: Kathie Dorantes RN In Department: GASTROENTEROLOGY [facility]03-04-2025 NotePatient Outreach (INTMMN) GRACIE BANUELOS ([id number]) 1965 F Date Time Provider Department 11/29/24 BRITTNI MISBAH CONTEH During your visit today, we recorded the [...] [E78.5] Order(s):LIPID PANEL BASIC [SQLIPB] Order #: [id number] FUTURE Prescriptions as of 12/02/2024 - pantoprazole [...] by mouth at bedtime as needed. - hvcnca-zwtugtfh-hwwuwxj (CREON 24) 24,000-76,000 -120,000 unit delayed release [...] stress female [N39.3] 11/24/2014 HPV test positive [AXM3453] 11/24/2014 Alcohol dependence in remission (HCC) [F10.21] [...] bloating [R14.0] 01/10/2021 01/10/2021 Encounter Status:Closed by [employer], PRODUSER on 12/02/24[facility] 11-25-2024 Telephone encounter Note* Telephone Encounter - Juan Bloom LPN - 11/25/2024 3:57 PM EST Spoke with Gracie, discussed that [facility] staff will be talking to patient in preoperative area and will give any medications IV to help with anxiety, patient understands and has no other questions. Juan Bloom LPN [facility] Work Phone: 1([phone]) 903-973302-28-2025 Miscellaneous Notes* Telephone Encounter - Juan Bloom LPN - 11/25/2024 3:57 PM EST Spoke with Gracie, discussed that [facility] staff will be talking to patient in preoperative area and will give any medications IV to help with anxiety, patient understands and has no other questions. Juan Bloom LPN * Telephone Encounter - Lyric Yeugn - 11/25/2024 12:24 PM EST Patient scheduled for EGD December 01 with provider. States she has anxiety and is asking provider to prescribe something she can take prior to the procedure; she has not used a medication in the past for this issue Please let her know if you do prescribe or if you won't [phone] (does not use MyChart) Lyric Yeung documented in this encounterA[facility]02-28-2025 Telephone encounter Note * Telephone Encounter - [...] you do prescribe or if you won't [phone] (does not use MyChart) Lyric Yeung [facility]02-28-2025 Telephone encounter Note* Telephone Encounter - Raisa Jimenez RN - 11/25/2024 12:00 PM EST Spoke with pt and went over prep instructions, answering all her questions until pt was comfortableand verbalized understanding Raisa Jimenez MA [facility]02-28-2025 Miscellaneous Notes* Telephone Encounter - Raisa Jimenez RN - 11/25/2024 12:00 PM EST Spoke with pt and went over prep instructions, answering all her questions until pt was comfortableand verbalized understanding Raisa Jimenez MA documented in this encounterAultman [facility] Hospital02-27-2025 Nurse Note* Carroll Leblanc RN - 11/24/2024 4:09 PM EST Attempted to reach the patient at the contact number that they provided [phone] (home) . Unable to speak with patient so without identifying the patient the following information was left on their voice mail: Date of procedure, location and report time Prep instructions A message was left informing the patient/patient customer account representative they must have a responsible adult [...] Number to call with questions or concerns [phone] Number to call to cancel their procedure [phone] Carroll Leblanc RN [facility]02-27-2025 Nurse Note* Carroll Leblanc RN - 11/24/2024 4:09 PM EST Attempted to reach the patient at the contact number that they provided [phone] (home) . Unable to speak with patient so without identifying the patient the following information was left on their voice mail: Date of procedure, location and report time Prep instructions A message was left informing the patient/patient customer account representative they must have a responsible adult [...] Number to call with questions or concerns [phone] Number to call to cancel their procedure [phone] Carroll Leblanc RN documented in this encounterAult[facility]02-24-2025 Telephone encounter Note * Telephone Encounter - [...] Phan RN November 21, 2024 2:14 PM [facility]02-24-2025 Miscellaneous Notes* Telephone Encounter - Mike Phan [...] 21, 2024 2:14 PM documented in this encounterAultman [facility]02-12-2025 Telephone encounter Note * Telephone Encounter - Larry Hastings MA - 11/09/2024 11:38 AM EST Patient notified and verbalized understanding. Larry Hastings MA [facility]02-12-2025 Miscellaneous Notes* Telephone Encounter - Larry Hastings MA - 11/09/2024 11:38 AM EST Patient notified and verbalized understanding. Larry Hastings MA * Telephone Encounter - Misbah Elkins MD - 11/09/2024 10:22 AM EST The medication Is for anxiety, and was the medication she requested. So please ask her to use it. Regards, Misbah Elkins MD * Telephone Encounter - Maribeth [...] back. Maribeth Owen LPN documented in this encounterAultman [facility]02-12-2025 Telephone encounter Note * Telephone Encounter - Misbah Elkins MD - 11/09/2024 10:22 AM EST The medication Is for anxiety, and was the medication she requested. So please ask her to use it. Regards, Misbah Elkins MD [facility]02-12-2025 Telephone encounter Note* Telephone Encounter - Marisela Rico LPN - 11/09/2024 8:17 AM EST Called and updated patient, voiced understanding. Marisela Rico LPN November 09, 2024 8:18 AM [facility]02-12-2025 Miscellaneous Notes* Telephone Encounter - Marisela Rico LPN - 11/09/2024 8:17 AM EST Called and updated patient, voiced understanding. Marisela Rico LPN November 09, 2024 8:18 AM * Telephone Encounter - Marisela Rico LPN - 11/09/2024 8:10 AM EST ----- Message from Misbah Elkins MD sent at 11/08/2024 5:00 PM EST ----- Chest xr is normal . Misbah Cisneros MD documented in this encounterAultman [facility]02-12-2025 Telephone encounter Note * Telephone Encounter - Marisela Rico LPN - 11/09/2024 8:10 AM EST ----- Message from Misbah Elkins MD sent at 11/08/2024 5:00 PM EST ----- Chest xr is normal . Misbah Cisneros MD [facility]02-11-2025 Telephone encounter Note* Telephone Encounter - Maribeth [...] and advise pt back. Maribeth Owen LPN [facility]02-10-2025 History of Present illness Narrative* Roland Camargo RT(Heath) - 11/07/2024 3:00 PM EST Radiology Service [...] PATIENT PRESENTS WITH AN IMPLANTABLE OR ATTACHED PARK MANAGER: No RADIOLOGY DEPARTMENT: General X-ray: Exam(s) Completed: Chest X-Ray PERIPHERAL IV DATA: Not applicable SIGNED BY: ASTRID Call) November 07, 2024 3:11 PM documented in this encounterAultman Alliance [facility] Hospital02-10-2025 NoteHNO ID: [id number] Author: ROLAND CAMARGO RT (R) Service: Radiology Author Type: Technologist Type: Progress [...] PATIENT PRESENTS WITH AN IMPLANTABLE OR ATTACHED PARK MANAGER: No RADIOLOGY DEPARTMENT: General X-ray: Exam(s) Completed: Chest X-Ray PERIPHERAL IV DATA: Not applicable SIGNED BY: Roland Camargo, RT(R) November 07, 2024 3:[address] [facility]02-10-2025 NoteHNO ID: [id number] Author: MISBAH ELKINS MD Service: ? Author Type: Physician Type: Progress Notes Filed: 11/07/2024 18:00 Note Text: BESSIE Bowman is a 59-year-old woman with a past medical history of hypertension, hyperlipidemia, alcohol use disorder with moderate dependence currently only using alcohol twice a month, alcohol hepatitis and pancreatitis, tobacco abuse disorder, pulmonary emphysema, lumbar disc disease with radiculopathy, anxiety and depression. She was admitted to [facility] from 01/01 to 01/04 for [...] Take 1 tablet by mouth once daily. yswrmw-etxwmwhq-vvczzli (CREON 24) 24,000-76,000 -120,000 unit delayed release capsule Take 3 capsules by mouth once daily. (Patient not taking: Reported on 11/02/2024) metoprolol tartrate, short acting (more content not included)...[facility]02-10-2025 History of Present illness Narrative* Misbah Elkins MD - 11/07/2024 2:01 PM EST BESSIE Bowman is a 59-year-old woman with a past medical history of hypertension, hyperlipidemia, alcohol use disorder with moderate dependence currently only using alcohol twice a month, alcohol hepatitis and pancreatitis, tobacco abuse disorder, pulmonary emphysema, lumbar disc disease with radiculopathy, anxiety and depression. She was admitted to [facility] from 01/01 to 01/04 for [...] times and is only getting Remeron from [facility]. She says she has rocha ic [...] Take 1 tablet by mouth once daily. brkyra-iazipfcn-ookvoxt (CREON 24) 24,000-76,000 -120,000 unit delayed release [...] ICD10: J44.1 - XR CHEST 2V FRONTAL/LAT Misbah Elkins MD documented in this encounterAultman [facility]02-05-[facility] Instructions* Patient Instructions* Juan Senior APRN.CNP - 11/02/2024 2:41 PM EST Schedule pain block Schedule appointment with pain management Small frequent meals, lean protein (chicken, fish, pork or turkey are preferred), low fat and high antioxidants [email or web address] for diet tips Follow up in 3-6 months documented in this encounterAultman Alliance [facility] Hospital02-05-2025 History of Present illness Narrative* Juan Senior [...] muscles on the left is partially imaged. [facility] 08/15/2024 HPI Gracie [...] shortness of breath all improving. Goes to [facility] with next routine exam in September. [...] and nausea. Denies anyvomiting or bowel changes. [facility] 05/27/2022 HPI Gracie Banuelos is a [...] 02, 2024 12:34 PM documented in this encounterAultman Alliance Community Hospital02-05-2025 NoteHNO ID: [id number] Author: JUAN SENIOR APRN.CNP Service: ? Author [...] muscles on the left is partially imaged. [facility] Rodriguez [facility] 08/15/2024 HPI Gracie Banuelos is [...] shortness of breath all improving. Goes to [facility] with next routine exam in September. [...] nausea. Denies any vomiting or bowel changes. [facility] Reynoldsi [facility] 05/27/2022 HPI Gracie Banuelos is a [...] Oct 2019 SYMPTOMS History (more content not included)...[facility]01-31-2025 Telephone encounter Note* Telephone Encounter - [...] by mouth once daily. Mihaela Cheng RN [facility]01-31-2025 Miscellaneous Notes* Telephone Encounter - Mihaela Cheng [...] daily. Mihaela Cheng RN documented in this encounterAultman Alliance [facility] Hospital11-26-2024 History of Present illness Narrative* Nadeen Bobby, (R) - 08/23/2024 9:20 AM EST Radiology Service [...] PATIENT PRESENTS WITH AN IMPLANTABLE OR ATTACHED PARK MANAGER: No ALLERGIES: Reviewed and unchanged CONTRAST ALLERGY: [...] 2024 TIME: 10:05 AM documented in this encounterAultman Alliance Community Hospital11-26-2024 NoteHNO ID: [id number] Author: NADEEN BOBBY RT (R) Service: ? Author Type: Assistant Speech Language Pathologist Type: Progress Notes Filed: 08/23/2024 10:05 Note [...] PATIENT PRESENTS WITH AN IMPLANTABLE OR ATTACHED PARK MANAGER: No ALLERGIES: Reviewed and unchanged CONTRAST ALLERGY: [...] Banuelos DATE: August 23, 2024 TIME: 10:05 [facility]11-22-2024 Telephone encounter Note* Telephone Encounter - Maribeth Owen LPN - 08/19/2024 11:35 AM EST Pt called in to reports she is still getting the Lexapro in her packs. I called [facility] and they will pick her packs up today and remove the Lexapro and then deliver back to pt today. Pt notified. Maribeth Owen LPN [facility]11-22-2024 Miscellaneous Notes* Telephone Encounter - Maribeth Owen LPN - 08/19/2024 11:35 AM EST Pt called in to reports she is still getting the Lexapro in her packs. I called [facility] and they will pick her packs up today and remove the Lexapro and then deliver back to pt today. Pt notified. Maribeth Owen LPN documented in this encounterAultman Alliance [facility] Hospital11-20-2024 Telephone encounter Note * Telephone Encounter - Soila Easton APRN.CNP - 08/17/2024 7:19 AM EST PDMP website checked and validated. All prescriptions have been APPROPRIATELY filled. No suspiciousactivity was identified. 08/17/2024 by Soila Easton APRN.IGOR [facility]11-20-2024 Miscellaneous Notes* Telephone Encounter - Soila Easton APRN.CNP - 08/17/2024 7:19 AM EST PDMP website [...] 16, 2024 9:30 AM documented in this encounterAultman Alliance [facility] Hospital11-19-2024 Telephone encounter Note * Telephone Encounter - [...] Pennington LPN August 16, 2024 9:30 AM [facility]11-18-2024 NoteHNO ID: [id number] Author: SOILA EASTON APRN.RN FACULTY Service: ? Author Type: Nurse Practitioner Type: [...] shortness of breath all improving. Goes to [facility] with next routine exam in September. [...] Stage 3 severe COPD by GOLD classification ([facility]) 2018 Tobacco use greater than 30 years [...] Take 1 tablet by mouth once daily. udbnuw-qgqrcwnh-ovwkjah (CREON 24) 24,000-76,000 -120,000 unit delayed release [...] 200 mg capsule Take (more content not included)...[facility]11-18-2024 History of Present illness Narrative* Soila Easton APRN.RN FACULTY - 08/15/2024 11:36 AM EST CC: Patient [...] shortness of breath all improving. Goes to [facility] with next routine exam in September. [...] Stage 3 severe COPD by GOLD classification ([facility]) 2018 Tobacco use greater than 30 years [...] Take 1 tablet by mouth once daily. kjhbbk-gbelkhwq-qwdbscy (CREON 24) 24,000-76,000 -120,000 unit delayed release [...] plan. Soila Easton APRN.CNP documented in this encounterAultman Alliance [facility] Hospital11-14-2024 Telephone encounter Note * Telephone Encounter - Eva Martines RN - 08/11/2024 3:26 PM EST Patient notified of results and provider's instructions. Patient verbalizes understanding. Eva Martines RN [facility]11-14-2024 Miscellaneous Notes* Telephone Encounter - Eva Martines [...] PM EST ----- Message from Soila Easton APRN.RN FACULTY sent at 08/11/2024 3:16 PM EST ----- No pneumonia on chest xray. Continue current treatment and upcoming follow up appointment. Thank you Soila Easton APRN.RN FACULTY documented in this encounterAultman Alliance Community Hospital11-14-2024 Telephone encounter Note * Telephone Encounter - Maribeth Owen LPN - 08/11/2024 3:21 PM EST .Left a message for pt to call the office and ask to speak to a nurse. Maribeth Owen LPN [facility]11-14-2024 Telephone encounter Note* Telephone Encounter - Maribeth Owen LPN - 08/11/2024 3:21 PM EST ----- Message from Soila aEston APRN.RN FACULTY sent at 08/11/2024 3:16 PM EST ----- No pneumonia on chest xray. Continue current treatment and upcoming follow up appointment. Thank you Soila Esaton APRN.RN FACULTY [facility]11-13-[facility] History of Present illness Narrative* Contreras Mack RT(R) - 08/10/2024 5:40 PM EST Radiology [...] PATIENT PRESENTS WITH AN IMPLANTABLE OR ATTACHED PARK MANAGER: No RADIOLOGY DEPARTMENT: General X-ray: Exam(s) Completed: Chest X-Ray PERIPHERAL IV DATA: Not applicable SIGNED BY: ASTRID Muniz) August 10, 2024 5:40 PM documented in this encounterAultman Alliance Community Hospital11-13-2024 NoteHNO ID: [id number] Author: CONTRERAS MACK RT(R) Service: ? Author Type: Assistant Speech Language Pathologist Type: Progress Notes Filed: 08/10/2024 17:47 Note [...] PATIENT PRESENTS WITH AN IMPLANTABLE OR ATTACHED PARK MANAGER: No RADIOLOGY DEPARTMENT: General X-ray: Exam(s) Completed: Chest X-Ray PERIPHERAL IV DATA: Not applicable SIGNED BY: RT Cristy(R) August 10, 2024 5:[address] [facility]11-13-2024 NoteHNO ID: [id number] Author: SOILA EASTON APRN.RN FACULTY Service: ? Author Type: Nurse Practitioner Type: [...] Stage 3 severe COPD by GOLD classification ([facility]) 2018 Tobacco use greater than 30 years [...] Take 1 tablet by mouth once daily. igqopg-bswjsvpt-dstkydz (CREON 24) 24,000-76,000 -120,000 unit delayed release [...] daily with meals. luciano (more content not included)...[facility]11-13-2024 History of Present illness Narrative* Soila Easton APRN.RN FACULTY - 08/10/2024 5:05 PM EST CC: Patient [...] Stage 3 severe COPD by GOLD classification ([facility]) 2018 Tobacco use greater than 30 years [...] Take 1 tablet by mouth once daily. rpxbaw-tkzrhjxn-mlfzxas (CREON 24) 24,000-76,000 -120,000 unit delayed release [...] Screening due on 01/11/2024 Covid-19 Vaccine( - season) due on 05/29/2024 Annual PCP [...] occur. Patient agreeable to treatment plan. Soila Esaton APRN.IGOR documented in this encounterAultman Alliance [facility] Hospital11-13-2024 Telephone encounter Note * Telephone Encounter - [...] urine sample to test for a UTI. [facility]11-13-2024 Miscellaneous Notes* Telephone Encounter - Caroline Miller [...] 08/10/2024 1:14 PM EST ----- Message from Misbah Elkins MD sent at 08/10/2024 12:44 PM EST ----- Gracie your while count always tends to be high, We will evaluate that in the next visit. Regards, Misbah Elkins MD documented in this encounterAultman Alliance [facility] Hospital11-13-2024 Telephone encounter Note * Telephone Encounter - Caroline Miller RN - 08/10/2024 1:14 PM EST ----- Message from Misbah Elkins MD sent at 08/10/2024 12:44 PM EST ----- Gracie your while count always tends to be high, We will evaluate that in the next visit. RegardsMisbah MD [facility]11-08-2024 Instructions* Patient Instructions* Misbah Elkins MD - 08/05/2024 4:09 PM EST [...] Sleep Foundation at [email or web address]. documented in this encounterAultman Alliance [facility] Hospital11-08-2024 History of Present illness Narrative* Misbah Elkins MD - 08/05/2024 3:40 PM EST BESSIE Bowman is a 59-year-old woman with a past medical history of hypertension, hyperlipidemia, alcohol use disorder with moderate dependence currently only using alcohol twice a month, alcohol hepatitis and pancreatitis, tobacco abuse disorder, pulmonary emphysema, lumbar disc disease with radiculopathy, anxiety and depression. She was admitted to [facility] from 01/01 to 01/04 for [...] Take 1 tablet by mouth once daily. kzsfcx-pchxruec-dqhccvs (CREON 24) 24,000-76,000 -120,000 unit delayed release [...] D72.829 - COMPLETE BLOOD COUNT AND DIFFERENTIAL Misbah Elkins MD documented in this encounterAultman Alliance [facility] Hospital11-08-2024 NoteHNO ID: [id number] Author: MISBAH ELKINS MD Service: ? Author Type: Physician Type: Progress Notes Filed: 08/05/2024 17:23 Note Text: BESSIE Bowman is a 59-year-old woman with a past medical history of hypertension, hyperlipidemia, alcohol use disorder with moderate dependence currently only using alcohol twice a month, alcohol hepatitis and pancreatitis, tobacco abuse disorder, pulmonary emphysema, lumbar disc disease with radiculopathy, anxiety and depression. She was admitted to [facility] from 01/01 to 01/04 for [...] airways disease (HCC) Alcohol dependence in remission ([facility]) 07/10/2015 Alcohol use disorder 08/27/2017 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 pancreatitis Alcoholic hepatitis 05/18/2012 Alcoholic liver disease ([facility]) 11/16/2013 Anemia Anxiety with depression Asthma Chronic hypoxemic respiratory failure ([facility]) COPD (chronic obstructive pulmonary disease) ([facility]) 05/25/2012 DDD (degenerative disc disease), cervical 09/03/2018 [...] Stage 3 severe COPD by GOLD classification ([facility]) 2018 Tobacco use greater than 30 years [...] EGD EUS 12/05/2019 mil (more content not included)...[facility]10-11-2024 Telephone encounter Note* Telephone Encounter - Soila Easton APRN.CNP - 07/08/2024 2:43 PM EDT PDMP website checked and validated. All prescriptions have been APPROPRIATELY filled. No suspiciousactivity was identified. 07/08/2024 by Soila Easton APRN.RN FACULTY [facility]10-11-2024 Miscellaneous Notes* Telephone Encounter - Soila Easton APRN.RN FACULTY - 07/08/2024 2:43 PM EDT PDMP website checked and validated. All prescriptions have been APPROPRIATELY filled. No suspiciousactivity was identified. 07/08/2024 by Soila Easton APRN.RN FACULTY * Telephone Encounter - Mike Phan RN [...] 08, 2024 1:52 PM documented in this encounterAultman Alliance [facility] Hospital10-11-2024 Telephone encounter Note * Telephone Encounter - [...] Phan RN July 08, 2024 1:52 PM [facility]09-24-2024 Telephone encounter Note* Telephone Encounter - Larry Hastings MA - 06/21/2024 2:32 PM EDT Patient no showed to today's appt. Letter sent. Larry Hastings MA [facility]09-24-2024 Miscellaneous Notes* Telephone Encounter - Larry Hastings MA - 06/21/2024 2:32 PM EDT Patient no showed to today's appt. Letter sent. Larry Hastings MA documented in this encounterAultman Alliance [facility] Hospital09-19-2024 Telephone encounter Note * Telephone Encounter - Soila Easton APRN.CNP - 06/16/2024 12:39 PM EDT PDMP website checked and validated. All prescriptions have been APPROPRIATELY filled. No suspiciousactivity was identified. 06/16/2024 by Soila Easton APRN.IGOR [facility]09-19-2024 Miscellaneous Notes* Telephone Encounter - Soila Easton APRN.CNP - 06/16/2024 12:39 PM EDT PDMP website checked and validated. All prescriptions have been APPROPRIATELY filled. No suspiciousactivity was identified. 06/16/2024 by Soila Easton APRN.IGOR * Telephone Encounter - Eda Velazquez LPN [...] Holly Jensen June 15, 2024 2:33 PM documented in this encounterAultman [facility]09-18-2024 Telephone encounter Note * Telephone Encounter - [...] Velazquez LPN June 15, 2024 5:21 PM [facility]09-18-2024 Telephone encounter Note* Telephone Encounter - Holly Herrera - 06/15/2024 [...] Holly Jensen June 15, 2024 2:33 PM [facility]08-21-2024 NoteHNO ID: [id number] Author: MISBAH ELKINS MD Service: ? Author Type: Physician Type: Progress Notes Filed: 05/18/2024 17:57 Note Text: BESSIE Bowman is a 59-year-old woman with a past medical history of hypertension, hyperlipidemia, alcohol use disorder with moderate dependence currently only using alcohol twice a month, alcohol hepatitis and pancreatitis, tobacco abuse disorder, pulmonary emphysema, lumbar disc disease with radiculopathy, anxiety and depression. She was admitted to [facility] from 01/01 to 01/04 for [...] Acute exacerbation of chronic obstructive airways disease ([facility]) 07/10/2015: Alcohol dependence in remission ([facility]) 08/27/2017: Alcohol use disorder No date: 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 pancreatitis 05/18/2012: Alcoholic hepatitis 11/16/2013: Alcoholic liver disease ([facility]) No date: Anemia No date: Anxiety with depression No date: Asthma No date: Chronic hypoxemic respiratory failure ([facility]) 05/25/2012: COPD (chronic obstructive pulmonary disease) ([facility]) 09/03/2018: DDD (degenerative disc disease), cervical No [...] to infectious organism 01/07/2019: Severe protein-calorie malnutrition ([facility]) 2018: Stage 3 severe COPD by GOLD classification ([facility]) No date: Tobacco use Comment: greater than [...] Comment: 1987: TUBAL LIGATION HX ALLERGIES Bactrim [Sulfamethoxazole-Trimethoprim], Hydrocodone, Penicillins, and Valium [Diazepam] MEDICATIONS hydrOXYzine pamoate (VISTARIL) 25 mg capsule Take 1 capsule by mouth daily at bedtime. lisinopril (ZESTRIL) 10 mg tablet Take 1 tablet by mouth once daily. pantoprazole DR (PROTONIX) 40 mg tablet Take 1 tablet by mouth once daily. simvastatin (ZOC (more content not included)...[facility] 05-18-2024 History of Present illness Narrative* Misbah Elkins MD - 05/18/2024 4:37 PM EDT BESSIE Bowman is a 59-year-old woman with a past medical history of hypertension, hyperlipidemia, alcohol use disorder with moderate dependence currently only using alcohol twice a month, alcohol hepatitis and pancreatitis, tobacco abuse disorder, pulmonary emphysema, lumbar disc disease with radiculopathy, anxiety and depression. She was admitted to [facility] from 01/01 to 01/04 for [...] Acute exacerbation of chronic obstructive airways disease ([facility]) 07/10/2015: Alcohol dependence in remission ([facility]) 08/27/2017: Alcohol use disorder No date: 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 pancreatitis 05/18/2012: Alcoholic hepatitis 11/16/2013: Alcoholic liver disease ([facility]) No date: Anemia No date: Anxiety with depression No date: Asthma No date: Chronic hypoxemic respiratory failure ([facility]) 05/25/2012: COPD (chronic obstructive pulmonary disease) ([facility]) 09/03/2018: DDD (degenerative disc disease), cervical No [...] Stage 3 severe COPD by GOLD classification ([facility]) No date: Tobacco use Comment: greater than 30 years No date: Unspecified hemorrhoids without mention of complication 11/24/2014: Urine, incontinence, stress female PAST SURGICAL HISTORY No date: APPENDECTOMY Comment: at age 14 04/15/2011: COLONOSCOPY Comment: Hemorrhoids, Diverticulosis. Dr. Paul Perze. 01/23/2015: COLONOSCOPY Comment: 2-Tubular adenomas. Dr. Víctor [...] tablet by mouth two times a day. vnkrkf-joervngq-bdjukzl (CREON 24) 24,000-76,000 -120,000 unit delayed release [...] 577.1, ICD10: K86.0 Refilled her Creon - FBSJPD-JZBEDURI-UOQHZWH 24,000-76,000-120,000 UNIT CAPSULE,DELAYED REL 3. Chronic obstructive [...] TABLET - METOPROLOL TARTRATE 25 MG TABLET Misbah Elkins MD documented in this encounterAultman Alliance [facility] Hospital08-19-2024 Telephone encounter Note * Telephone Encounter - Maribeth Owen LPN - 05/16/2024 7:28 PM EDT Spoke with pt and apt booked for tomorrow. Pt not out of medication. Pt will discuss medication below at apt. Maribeth Owen LPN [facility]08-19-2024 Miscellaneous Notes* Telephone Encounter - Maribeth Owen [...] patient via phone and does not use [employer]. Patients phone has restriction on it and can not receive call. Patient has an appointment with Soila Easton on 05/23/24 if unable to contact patient sooner. Marisela Rico LPN May 13, 2024 3:59 PM * Telephone Encounter - Misbah Elkins MD - 05/13/2024 12:34 PM EDT Please set gracie to see me on Thursday to discuss this refill Misbah Cisneros MD * Telephone Encounter - Maribeth [...] 13, 2024 12:12 PM documented in this encounterAultman Alliance [facility] Hospital08-19-2024 Telephone encounter Note * Telephone Encounter - Susy Barnes LPN - 05/16/2024 6:57 PM EDT Unable to reach Patient, phone has restrictions and can not receive call. Called Domonique/Sister, asking for Patient to call & speak to nurse. Susy Barnes LPN [facility]08-16-2024 Telephone encounter Note* Telephone Encounter - Marisela Rico LPN - 05/13/2024 3:58 PM EDT Unable to contact patient via phone and does not use MyChart. Patients phone has restriction on it and can not receive call. Patient has an appointment with Soila Easton on 05/23/24 if unable to contact patient sooner. Marisela Rico LPN May 13, 2024 3:59 PM [facility]08-16-2024 Telephone encounter Note* Telephone Encounter - Misbah Elkins MD - 05/13/2024 12:34 PM EDT Please set gracie to see me on Thursday to discuss this refill Misbah Cisneros MD [facility]08-16-2024 Telephone encounter Note* Telephone Encounter - Maribeth [...] Owen LPN May 13, 2024 12:12 PM [facility]08-07-2024 NotePatient Outreach (INTMMN) GRACIE BANUELOS ([id number]) 1965 [address] [place]* Date Time Provider Department 05/04/24 MISBAH ELKINS During your visit today, we recorded the following information about you: Allergies As of Date: 05/04/2024 Noted Allergy Reaction BACTRIM (SULFAMETHOXAZOLE-TRIMETH*11/28/2022 4 - Hives HYDROCODONE 08/02/2020 9 - Itching PENICILLINS 07/07/2006 14 - Other: See Comments Comments: hives VALIUM (DIAZEPAM) 11/02/2013 14 - Other: See Comments Comments: cross reaction with alcohol addiction Date Reviewed: 01/25/2024 Reviewed by: aTra Youngblood APRN.RN FACULTY - Fully Assessed Visit Diagnosis:Encounter for screening mammogram for breast cancer [Z12.31] Order(s):[facility] SCREENING [facility] [place] [[id number]] Order #: [id number] FUTURE Prescriptions as of 05/09/2024 - hydrOXYzine [...] by mouth two times a day. - aexuyh-wrvmlayp-gvmzhvs (CREON 24) 24,000-76,000 -120,000 unit delayed release [...] stress female [N39.3] 11/24/2014 HPV test positive [[id number]] 11/24/2014 Alcohol dependence in remission (HCC) [F10.21] [...] 01/10/2021 Encounter Status:Closed by MAYCOL PEMBERTON on 05/09/24[facility] Telephone encounter Note* Telephone Encounter - Soila Easton APRN.CNP - 04/15/2024 2:36 PM EDT PDMP website checked and validated. All prescriptions have been APPROPRIATELY filled. No suspiciousactivity was identified. 04/15/2024 by Soila Easton APRN.CNP [facility]07-19-2024 Miscellaneous Notes* Telephone Encounter - Soila Easton APRN.CNP - 04/15/2024 2:36 PM EDT [facility]. All prescriptions have [...] 15, 2024 1:32 PM documented in this encounterAultman Alliance [facility] Hospital07-19-2024 Telephone encounter Note * Telephone Encounter - [...] Phan RN April 15, 2024 1:32 PM [facility]06-21-2024 Telephone encounter Note* Telephone Encounter - Annette Hayes APRN.CNP - 03/18/2024 3:09 PM EDT PDMP website checked and validated. All prescriptions have been APPROPRIATELY filled. No suspiciousactivity was identified. 03/18/2024 by Annette Hayes APRN.CNP [facility]06-21-2024 Miscellaneous Notes* Telephone Encounter - Annette Hayes [...] two times a day for 30 days. Tanseem Jensen March 18, 2024 2:51 PM documented in this encounterAultman Alliance [facility] Hospital06-21-2024 Telephone encounter Note * Telephone Encounter - Tasneem Breen - [...] Tasneem Jensen March 18, 2024 2:51 PM [facility]06-17-2024 Telephone encounter Note* Telephone Encounter - Eda Shine LPN - 03/14/2024 2:02 PM EDT Phoned patient and left message that she should have enough medication to get her to her appointment next week with Soila Easton on 03/18/24. Eda Shine LPN [facility]06-17-2024 Miscellaneous Notes* Telephone Encounter - Eda Shine [...] 14, 2024 11:25 AM documented in this encounterAultman Alliance Community Hospital06-17-2024 Telephone encounter Note * Telephone Encounter - Julissa Burgos MD - 03/14/2024 12:53 PM EDT Last RX 02/25 for 28 day supply so should have enough to last till 03/25 Has 03/18 appointment with Soila, so should be able to get refills next week [facility] Work Phone: [phone] 258-321006-17-2024 Telephone encounter Note* Telephone Encounter - Catherine [...] Pennington LPN March 14, 2024 11:25 AM [facility]05-31-2024 Telephone encounter Note* Telephone Encounter - Annette Hayes APRN.CNP - 02/26/2024 3:25 PM EDT PDMP website checked and validated. All prescriptions have been APPROPRIATELY filled. No suspiciousactivity was identified. 02/26/2024 by Annette Hayes APRN.CNP [facility]05-31-2024 Miscellaneous Notes* Telephone Encounter - Annette Hayes APRN.CNP - 02/26/2024 3:25 PM EDT PDMP website checked and validated. All prescriptions have been APPROPRIATELY filled. No suspiciousactivity was identified. 02/26/2024 by Annette Hayes APRN.CNP * Telephone Encounter - Kiara Miramontes LPN - 02/26/2024 2:31 PM EDT Patient is now using [facility]. [facility] is unable to transfer this from [facility] since it is a controlled medication. Patient [...] you. Kiara Miramontes LPN. documented in this encounterAultman [facility]05-[facility] Telephone encounter Note * Telephone Encounter - Kiara Miramontes LPN - 02/26/2024 2:31 PM EDT Patient is now using [facility]. [facility] is unable to transfer this from [facility] since it is a controlled medication. Patient [...] Please advise. Thank you. Kiara Miramontes LPN. [facility]05-24-2024 Telephone encounter Note* Telephone Encounter - Soila Easton APRN.CNP - 02/19/2024 2:30 PM EDT PDMP website checked and validated. All prescriptions have been APPROPRIATELY filled. No suspiciousactivity was identified. 02/19/2024 by Soila Easton APRN.IGOR [facility]05-24-2024 Miscellaneous Notes* Telephone Encounter - Soila Easton [...] Thank you. Pily Dewitt. documented in this encounterAultman Alliance [facility] Hospital05-24-2024 Telephone encounter Note * Telephone Encounter - [...] Please advise. Thank you. Eda Shine LPN. [facility]05-24-2024 Telephone encounter Note* Telephone Encounter - Pily [...] 03/18/2024 Please advise. Thank you. Pily Dewitt. [facility]05-09-2024 Miscellaneous Notes* Telephone Encounter - Soila Easton APRN.CNP - 02/04/2024 12:37 PM EDT Noted Soila Easton APRN.CNP * Telephone Encounter - Mihaela Cheng RN - 02/04/2024 9:19 AM EDT FYI: Patient calling in to update PCP that she was seen by Dr. Owen Del Rosario at [facility] recently and diagnosed with gout in her right foot. She has been prescribed medication/treatment and will be following up with them next week. Patient states if PCP team needs any of these records, to contact DR. Del Rosario's office for them. Patient will be seeing Soila Easton CNP in February. Mihaela Cheng RN documented in this encounterAultman [facility]05-09-2024 Telephone encounter Note * Telephone Encounter - Soila Easton APRN.CNP - 02/04/2024 12:37 PM EDT Noted Soila Easton APRN.CNP [facility]05-09-2024 Telephone encounter Note* Telephone Encounter - Mihaela Cheng RN - 02/04/2024 9:19 AM EDT FYI: Patient calling in to update PCP that she was seen by Dr. Owen Del Rosario at [facility] recently and diagnosed with gout in her right foot. She has been prescribed medication/treatment and will be following up with them next week. Patient states if PCP team needs any of these records, to contact DR. Del Rosario's office for them. Patient will be seeing Soila Easton CNP in February. Mihaela Cheng RN [facility]05-01-2024 Telephone encounter Note* Telephone Encounter - María Elena Sheth RN - 01/27/2024 6:04 PM EDT Spoke with patient. Given message from provider's office. Patient verbalizes understanding. María Elena Sheth RN [facility]05-01-2024 Miscellaneous Notes* Telephone Encounter - María Elena Sheth RN - 01/27/2024 6:04 PM EDT Spoke with patient. Given message from provider's office. Patient verbalizes understanding. María Elena Sheth RN * Telephone Encounter - Traa Youngblood APRN.CNP - 01/27/2024 5:19 PM EDT Only if symptoms do not resolve. Thank you, Tara Youngblood APRN.RN FACULTY * Telephone Encounter - Pam Jones LPN [...] you, Tara Youngblood APRN.IGOR documented in this encounterAultman Alliance [facility] Hospital05-01-2024 Telephone encounter Note * Telephone Encounter - Tara Youngblood APRN.CNP - 01/27/2024 5:19 PM EDT Only if symptoms do not resolve. Thank you, Tara Youngblood APRN.CNP [facility]05-01-2024 Telephone encounter Note* Telephone Encounter - Pam Jones LPN - 01/27/2024 5:13 PM EDT T/C to pt gave information provided. Pt voices understanding. She asks when done with atb . Should she come back to make sure its resolved? Placed records in your basket of pulmonary visit. [facility]05-01-2024 Telephone encounter Note* Telephone Encounter - Tara [...] weget these records. Thank you, Tara Youngblood APRN.CNP [facility]04-29-2024 History of Present illness Narrative* Sonja Victor [...] PATIENT PRESENTS WITH AN IMPLANTABLE OR ATTACHED PARK MANAGER: No RADIOLOGY DEPARTMENT: General X-ray: Exam(s) Completed: Chest X-Ray PERIPHERAL IV DATA: Not applicable SIGNED BY: RT Channing(R) January 25, 2024 2:07 PM documented in this encounterAultman Alliance Community Hospital04-29-2024 History of Present illness Narrative* Tara Youngblood APRN.CNP - 01/25/2024 1:20 PM EDT Chief Complaint Patient presents with: ER follow up HPI Gracie Banuelos is a 58 year old female who presents here today for Above Complaints. Gracie is an established patient of Dr. Brittni MD. She is a new patient to me today. [employer] computer system was down at time of this appointment. No access to chart during assessment/exam. Pt was aware of this prior to appointment and still agreed to appointment. Concerns today... ER follow-up --- [facility] ER visit on 01/18 d/t [...] not cleared up from prior admission at [facility] from 12/31-01/04. Stillvery wheezy and [...] airways disease (HCC) Alcohol dependence in remission ([facility]) 07/10/2015 Alcohol use disorder 08/27/2017 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 pancreatitis Alcoholic hepatitis 05/18/2012 Alcoholic liver disease ([facility]) 11/16/2013 Anemia Anxiety with depression Asthma Chronic hypoxemic respiratory failure (HCC) COPD (chronic obstructive pulmonary disease) ([facility]) 05/25/2012 DDD (degenerative disc disease), cervical 09/03/2018 [...] PD stone L'SCOPE CHOLECYSTECTOMY 06/14/2021 TUBAL LIGATION 1987 Family History FAMILY HISTORY Problem Relation [...] tablet by mouth two times a day. mcqils-kqmbvnqr-mznitzp (CREON 24) 24,000-76,000 -120,000 unit delayed release [...] - 1-dose 60+ series) Never done Covid-19 Vaccine(3 - season) due on 05/29/2023 Colorectal Cancer Screening [...] look for resolution of prior pneumonia from [facility] admission 3 weeks ago. Concern [...] suspiciousactivity was identified. 01/25/2024 by Tara Youngblood APRN.RN FACULTY RTO as needed. Prescription instructions reviewed with patient as applicable. Potential red flag symptoms discussed with the patient. Reviewed appropriate action plan to take if red flag symptoms occur. Patient agreeable to treatment plan. Tara Castellanos APRN.RN FACULTY [address] [place] [address] documented in this encounterAultman [facility]04-26-2024 Telephone encounter Note * Telephone Encounter - So Freeman LPN - 01/22/2024 3:16 PM EDT Patient calling back to check status of refill, aware PROTECTION ENGINEER is still seeing patients not addressed yet. [facility]04-26-2024 Miscellaneous Notes* Telephone Encounter - So Freeman LPN - 01/22/2024 3:16 PM EDT Patient calling back to check status of refill, aware PROTECTION ENGINEER is still seeing patients not addressed yet. [...] notify patient. Nohelia Zacarias documented in this encounterAultman Alliance [facility] Hospital04-26-2024 Telephone encounter Note * Telephone Encounter - [...] Please advise. Thank you. Chen Chauhan LPN. [facility]04-26-2024 Telephone encounter Note* Telephone Encounter - Nohelia [...] No need to notify patient. Nohelia Zacarias [facility]04-24-2024 Telephone encounter Note* Telephone Encounter - Soila Easton APRN.CNP - 01/20/2024 7:03 AM EDT PDMP website checked and validated. All prescriptions have been APPROPRIATELY filled. No suspiciousactivity was identified. 01/20/2024 by Soila Easton APRN.CNP [facility]04-24-2024 Miscellaneous Notes* Telephone Encounter - Soila Easton APRN.CNP - 01/20/2024 7:03 AM EDT PDMP website checked and validated. All prescriptions have been APPROPRIATELY filled. No suspiciousactivity was identified. 01/20/2024 by Soila Easton APRN.CNP * Telephone Encounter [...] you. Marge Perkins RN. documented in this encounterAultman [facility]04-23-2024 Discharge summary Author Erik Gomez [facility] January 19, 2024 11:52pm Note Date/Time January 19, 2024 10: 42pm [facility] Medical Records Department [address] [place] [address] Emergency Department Summary 01/19/24 MR#: [id number] Acct: [id number] Name: GRACIE BANUELOS Rep #:[id number] : 1965 58 From: Erik Gomez MD PCP: Anat Easton PROTECTION ENGINEER-C Status:REG ER Location: ED HPI History of [...] she is asking for 1 of those. [facility] Medical History Acute on chronic hypoxic respiratory [...] QHS sleep 01/16/22 [History Last Taken 01/01/24] uvzzht-gtwkpygs-ayykdqu 24,000-76,000-120,000 unit capsule,delayed rel (Creon) 2cap PO [...] Allergy Other Verified 01/19/24 22:09 hydrocodone [From Rembrandt] AdvReac Itching Verified 01/19/24 22:09 Family History [...] the right lower extremity, and per the sterile technician's preliminary interpretation, it is negative for [...] Discussion w/another healthcare provider: Other (vascular u/s sterile technician) Discharge Plan Triage Chief Complaint: Edema [...] 14 0RF Primary Care Provider: Anat Gutiérrez NP Referrals: Alden Monroy DPM [Med Staff - Active Staff] - 1 Week if not improving Anat Gutiérrez PROTECTION ENGINEER, MARY-C [Primary Care Provider] - Disposition Disposition: Home, Self Care What to do if you have Problems For any increased pain, shortness of breath, bleeding, nausea or vomiting, chestpain, or any unexpected problems, contact your Primary Care Provider. Call [facility] ([phone]) or report to the closest Emergency Room. Call 911 if necessary. 01/19/24 5782 <Electronically signed by Erik Gomez MD> Cosigner Signature (if applicable): CC: CARMEN Coppola Older ~ Signed [facility] Work Phone: 1(353) 140-412104-22-2024 Telephone encounter Note* Telephone Encounter - Marge [...] care: 01/19/2024 Please advise. Thank you. Marge Perkins, SARWAT. [facility]04-16-2024 Miscellaneous Notes* Telephone Encounter - So Freeman LPN - 01/12/2024 4:09 PM EDT Phoned pharmacy and aware Metoprolol rx had been sent in per PROTECTION ENGINEER. * Telephone Encounter - Anat Gutiérrez APRN.CNP - 01/12/2024 2:52 PM EDT She was discharged home from the hospital on this. We will continue to refill Anat Gutiérrez APRN.CNP * Telephone Encounter - So Freeman LPN - 01/12/2024 2:11 PM EDT [facility] received fax on patient medication changes. Fax says to continue Metoprolol 25 mg twice daily. They do not have a Metoprolol rx for the patient. Asking if PROTECTION ENGINEER wanted to send rx for the patient, or if the patient gets from another provider? Please advise documented in this encounterAultman [facility]04-16-2024 Instructions* Patient Instructions* Anat Gutiérrez APRN.CNP - 01/12/2024 11:36 AM EDT FOR BLOOD PRESSURE: DISCONTINUE HYDROCHLOROTHIAZIDE. DECREASE AMLODIPINE TO 5 MG DAILY. CONTINUE WITH METOPROLOL 25 MG TWICE A DAY OKAY TO RESTART HYDROXYZINE HAVE LAB WORK DONE IN ONE WEEK documented in this encounterAultman Alliance Community Hospital04-16-2024 History of Present illness Narrative* Anat Gutiérrez APRN.IGOR - 01/12/2024 11:10 AM EDT Transitional Care [...] today for above. She was admitted to [facility] from 01/01 to 01/04 for [...] airways disease (HCC) Alcohol dependence in remission ([facility]) 07/10/2015 Alcohol use disorder 08/27/2017 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 pancreatitis Alcoholic hepatitis 05/18/2012 Alcoholic liver disease (HCC) 11/16/2013 Anemia Anxiety with depression Asthma Chronic hypoxemic respiratory failure (HCC) COPD (chronic obstructive pulmonary disease) ([facility]) 05/25/2012 DDD (degenerative disc disease), cervical 09/03/2018 [...] to infectious organism 2017 Severe protein-calorie malnutrition ([facility]) 01/07/2019 Stage 3 severe COPD by GOLD classification ([facility]) 2018 Tobacco use greater than 30 years [...] systolic blood pressure less than 100 mmHG. rqtern-cmihekyg-hsdrrnl (CREON 24) 24,000-76,000 -120,000 unit delayed release [...] Cognition normal. DATA REVIEWED: Outside chart from [facility] admission reviewed. ASSESSMENT/PLAN: 1. Essential [...] made today. Faxed updated med list to [facility] pharmacy to ensure changesare made to her [...] Patient agreeable to treatment plan. Anat Gutiérrez APRN.RN FACULTY documented in this encounterAultman [facility]04-10-2024 Miscellaneous Notes* Telephone Encounter - Sylvia Chawla [...] for treatment for this. documented in this encounterAultman [facility]04-10-2024 History of Present illness Narrative* Deandra BotelloMCKENNA - 01/06/2024 2:00 PM EDT TRANSITION CARE MANAGEMENT (TCM) INITIAL CONTACT [employer] Outreach Provider Action/FYI: TCM Initial contact with patient post discharge, spoke to patient. Patient identified by name and . TRANSITION CARE MANAGEMENT INITIAL OUTREACH DOCUMENTATION: 01/06/2024 Date of Outreach: Outreach Attempt 1: Contact Made Date of Discharge 01/05/2024 SUMMARY: -Pt discharged from [facility] on 01/05/24. -Admitted for: hypoxia,pneumonia,COPD [...] instructions/AVS at all. Restate discharge instructions from [facility] verbally, copy/paste via [employer], mail, or provide in person. Do you have all the necessary equipment and supplies at home? Yes Medical records from recent hospitalization: Placed for provider to review Pt filled [facility] medicines [facility] but [facility] is her normal [facility]. [facility] to see [facility]. [facility] pre [facility] pt medicines documented in this encounterAultman [facility]04-09-2024 Discharge summary Author Bert Greenwood [facility] January 05, 2024 12:07pm Note Date/Time January 05, 2024 7:40 am [facility] Medical Records Department [address] [place] [address] Instructions for Home/Discharge Instructions 01/05/24 0739 MR#: [id number] Acct: [id number] Name: GRACIE BANUELOS Rep #:[id number] : 1965 58 From: Bert Back PCP: Anat Easton PROTECTION ENGINEER-C Status:ADM IN Discharge Instructions Diet Discharge Diet: [...] Bert Greenwood Primary Care Provider: Anat Gutiérrez NP Consulting Providers: Carin Meraz; Anastacia Bonilla Discharge [...] 0RF Referrals / Follow Up: SOILA EASTON PROTECTION ENGINEER-C [Non-Staff] - Anat Gutiérrez NP, PROTECTION ENGINEER-C [Primary Care Provider] - Gonzalo Sebastian DO [Med Staff - Active Staff] - Within 2 Weeks Disposition Disposition (needs filled in before D/C Order can be placed): Home, Self Care 01/05/24 1207<Electronically signed by Bert Greenwood MD>Bert Greenwood MD CC: PROTECTION ENGINEER-C Anat Easton; Dr. Carin Meraz MD; Dr. Anastacia Bonilla MD ~ Signed [facility] Work Phone: 1(964) 597-733904-08-2024 Progress note Author Bert Greenwood [facility] January 04, 2024 1:21pm Note Date/Time January 04, 2024 8:28 am [facility] Medical Records Department [address] [place] [address] Progress Note - Hospitalist 01/04/24827 MR#: [id number] Acct: [id number] Name: GRACIE BANUELOS Rep #:[id number] : 1965 58 From: Bert Back PCP: Anat Easton, PROTECTION ENGINEER-C Status:ADM IN Location: [place] [address] Reason for Visit Reason for Visit: Diagnoses [...] * # Charges/Coding Visit Charges Inpatient E&M: 05636 Subs Hosp L2 01/04/24 1321 <Electronically signed by Bert Greenwood MD> Cosigner Signature (if applicable): CC: ~ Signed [facility] Work Phone: 1(748) 763-332204-07-2024 Progress note [facility] January 03, 2024 11:22am Note Date/Time January 03, 2024 9:13 am [facility] Medical Records Department [address] [place] [address] Progress Note 01/03/2408 MR#: [id number] Acct: [id number] Name: GRACIE BANUELOS Rep #:[id number] : 1965 58 From: Anastacia Bonilla MD PCP: CARMEN Salazar Status:ADM IN Location: [place] [address]-1 Subjective Subjective Patient seen and examined. She [...] 81.7 H, Lymph % (Auto) 9.6 L, Emmons % (Auto) 6.9, Eos % (Auto) 0.6, [...] 91.3 H, Lymph % (Auto) 4.0 L, Emmons % (Auto) 2.5, Eos % (Auto) 0.2, [...] Jeff Thakkar MD at 21:39 EDT , Physical Exam Const alert, oriented x3 [...] * # Charges/Coding Visit Charges Inpatient E&M: 18582 Subs Hosp L2 01/03/24 1122 <Electronically signed by Anastacia Bonilla MD> Anastacia Bonilla MD Cosigner Signature (if applicable): CC: ~ Signed [facility] Work Phone: 1(816) 137-518404-07-2024 Discharge summary Author Víctor Huerta [facility] January 02, 2024 11:55pm Note Date/Time January 02, 2024 7:21 pm [facility] Medical Records Department [address] [place] [address] Emergency Department Summary 01/02/24 MR#: [id number] Acct: [id number] Name: GRACIE BANUELOS Rep #:[id number] : 1965 58 From: Víctor Palumbo PCP: Anat Easton, PROTECTION ENGINEER-C Status:ADM IN Location: [place] [address] HPI History of Present Illness Chief Complaint: [...] she has had that before with pneumonia. [facility] Medical History (Updated 01/02/24 @ 22:10 by [...] DAILY BP 11/01/22 [History Last Taken Unknown] xlnntg-hqutqgpq-ewqjiiv 24,000-76,000-120,000 unit capsule,delayed rel (Creon) 1cap PO [...] Allergy Other Verified 01/02/24 18:59 hydrocodone [From Rembrandt] AdvReac Itching Verified 01/02/24 18:59 Family History [...] 81.7 H Lymph % (Auto) 9.6 L Emmons % (Auto) 6.9 Eos % (Auto) 0.6 Baso % (Auto) 0.4 Absolute Neuts (auto) 21.0 H Absolute Lymphs (auto) 2.46 Nucleated RBC % 0 Differential Comment SCANNED Diff Path Review January foll PT 14.5 INR 1.1 APTT 32.2 [...] disease), Pneumonia Disposition Disposition: Acute Care Hospital [facility] What to do if you have Problems For any increased pain, shortness of breath, bleeding, nausea or vomiting, chestpain, or any unexpected problems, contact your Primary Care Provider. Call [facility] ([phone]) or report to the closest Emergency Room. Call 911 if necessary. 01/02/24 8307 <Electronically signed by Víctor Huerta DO> Cosigner Signature (if applicable): CC: CARMEN Coppola Older ~ Signed [facility] Work Phone: 1(225) 887-974104-07-2024 History and physical note Author Carin Meraz [facility] January 02, 2024 10:42pm Note Date/Time January 02, 2024 10:1 0pm [facility] Medical Records Department [address] [place] [address] H&P Exam - Hospitalist 01/02/242207 MR#: [id number] Acct: [id number] Name: GRACIE BANUELOS Rep #:[id number] : 1965 58 From: Carin Meraz MD PCP: Anat Easton, PROTECTION ENGINEER-C Status:ADM IN Location: [facility] [id number] HPI - General General Date of Admission: 01/02/24 Date of Service: 01/02/24 Chief Complaint: URI sxs, cough, dyspnea, worsening. HPI Narrative The patient is a 58 y/o F w/ PMHx: EtOH abuse, Tobacco use, COPD/Asthma w/ Chronic Hypoxic Respiratory Failure (PRN), HTN, HLD, Chronic anemia, Anxiety andDepression, Chronic pancreatitis associated with EtOH abuse who presents to the [facility] ED on 01/02/24 with history [...] 1, Rocephin 1 g IV x 1. [facility] Medical History Anemia Anxiety and depression Arthritis [...] DAILY BP 11/01/22 [History Last Taken Unknown] cjfxqb-kaszzcqo-qtjuyeo 24,000-76,000-120,000 unit capsule,delayed rel (Creon) 1cap PO [...] Allergy Other Verified 01/02/24 18:59 hydrocodone [From Rembrandt] AdvReac Itching Verified 01/02/24 18:59 Family History [...] 81.7 H, Lymph % (Auto) 9.6 L, Emmons % (Auto) 6.9, Eos % (Auto) 0.6, [...] with EtOH abuse who presents to the [facility] ED on 01/02/24 with history [...] Patient does not have healthcare power of employment law attorney or living will in place but [...] Time: 16minutes. Charges/Coding Visit Charges Inpatient E&M: 45058 Init Hosp L3 Procedures Hospitalists Procedures: 13427 Advncd Care Plan 30 Min 01/02/24 2242 <Electronically signed by Carin Meraz MD> Cosigner Signature (if applicable): CC: CARMEN Coppola Older; Dr. Carin Meraz MD~ Signed [facility] Work Phone: 1(348) 873-730803-20-2024 History of Present illness Narrative* Larry Talley [...] Stage 3 severe COPD by GOLD classification ([facility]) 2018 Tobacco use greater than 30 years [...] 1 tablet by mouth daily at bedtime. dwmmfs-ashtnmyy-sjopcwe (CREON 24) 24,000-76,000 -120,000 unit delayed release [...] K86.0 Refills provided per pt request - YMPNEU-KIWQHWLY-MEZSQVE 24,000-76,000-120,000 UNIT CAPSULE,DELAYED REL - CBC + [...] plan. Larry Talley PA-C documented in this encounterAultman [facility] Hospital02-07-2024 Miscellaneous Notes* Telephone Encounter - Maribeth Owen LPN - 11/04/2023 9:30 AM EST Spoke with [facility] pharmacy and message below was related to [...] - 11/03/2023 8:18 AM EST Spoke with [facility] and they were trying to reach Dr. Elliott's office. Transferred rx there. Maribeth Owen LPN * Telephone Encounter - Soila Easton APRN.RN FACULTY - 11/02/2023 4:28 PM EST PCP has not prescribed lorazepam for patient. Is she getting this elsewhere? If so she needs to follow up with that provider. Thank you Soila Easton APRN.RN FACULTY * Telephone Encounter - Gem Swartz - 11/02/2023 3:09 PM EST Patient has been identified by name and date of : Yes, Provider [facility] Pharmacy phones for refill(s): Requested Prescriptions Pending Prescriptions Disp Refills LORazepam (ATIVAN) 0.5 mg Sig: Take 1 tablet by mouth two times a day as needed (anxiety). Date of last office visit in primary care: Visit date not found Date of next office visit in primary care: Visit date not found Please advise. Thank you. Gem Swartz. documented in this encounterAultman [facility] Hospital10-13-2023 Miscellaneous Notes* Telephone Encounter - Rissa Johnson OCCA - 07/10/2023 12:11 PM EDT TC to patient who verbalized understanding of providers message below. Patient asking for medication to go to [facility]'s pharmacy instead of [place].Please advise. Thank you. BERNADETTE James * Telephone [...] ER follow up 07/20 documented in this encounterAultman Alliance [facility] Hospital09-15-2023 Miscellaneous Notes* Telephone Encounter - Mike Phan RN - 06/12/2023 2:38 PM EDT Patient has been identified by name and date of : Yes, Provider Brittni Date 06-12-23 Time 2:39 pm Pharmacy phones [...] you. Mike Phan RN documented in this encounterAultman Alliance [facility] Hospital09-13-2023 Miscellaneous Notes* Telephone Encounter - Susy Barnes [...] and advise. Tasneem Lock documented in this encounterAultman Alliance Community Hospital09-05-2023 Discharge summary Author Levar Handy [facility] June 02, 2023 4:56pm Note Date/Time June 02, 2023 4:56pm [facility] Medical Records Department [address] [place] [address] Emergency Department Summary 06/02/23 MR#: [id number] Acct: [id number] Name: GRACIE BANUELOS Rep #:[id number] : 1965 58 From: Levar Handy DO PCP: SOILA EASTON PROTECTION ENGINEER-C Status:REG ER Location: ED HPI History of [...] oxygen and everything she needs at home. [facility] Medical History Abdominal pain Alcohol abuse Alcoholic [...] Q6H antibiotic 11/01/22 [History Last Taken Unknown] agjnhd-xqnwsmit-fibqget 24,000-76,000-120,000 unit capsule,delayed rel (Creon) 1cap PO [...] Allergy Hives Verified 11/01/22 19:37 hydrocodone [From Rembrandt] AdvReac Itching Verified 11/01/22 19:37 Family History [...] % (Auto) 63.1 Lymph % (Auto) 25.1 Emmons % (Auto) 6.4 Eos % (Auto) 3.6 [...] your Primary Care Provider. Call [facility] ([phone]) or report to the closest Emergency Room. Call 911 if necessary. 06/02/23 1656 <Electronically signed by Levar Handy DO> Cosigner Signature (if applicable): CC: MARY-Nichole EASTON ~ Signed [facility] Work Phone: 1(448) 870-805308-21-2023 Miscellaneous Notes* Telephone Encounter - Eva Martines RN - 05/18/2023 1:32 PM EDT Last Office Visit: 04/12/2023 Future Office Visit: None Requested Prescriptions Pending Prescriptions Disp Refills lisinopril (ZESTRIL) 10 mg tablet 30 tablet 11 Sig: Take 1 tablet by mouth once daily. documented in this encounterAult[facility]07-19-2023 Instructions* Patient Instructions* Larry Talley PA-C - 04/15/2023 1:24 PM EDT Double check with [facility] to see if it's safe to take Cyclobenzaprine (Flexeril)at night with Geodon and Mirtazapine (Remeron) documented in this encounterAultman Alliance [facility] Hospital07-19-2023 History of Present illness Narrative* Larry Talley [...] airways disease (HCC) Alcohol dependence in remission ([facility]) 07/10/2015 Alcohol use disorder 08/27/2017 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 pancreatitis Alcoholic hepatitis 05/18/2012 Alcoholic liver disease ([facility]) 11/16/2013 Anemia Anxiety with depression Asthma Chronic hypoxemic respiratory failure (HCC) COPD (chronic obstructive pulmonary disease) ([facility]) 05/25/2012 DDD (degenerative disc disease), cervical 09/03/2018 [...] Stage 3 severe COPD by GOLD classification ([facility]) 2018 Tobacco use greater than 30 years [...] 1 tablet by mouth daily at bedtime. tclxlc-vpnumrdz-upwrnad (CREON 24) 24,000-76,000 -120,000 unit delayed release [...] Take 1 tablet by mouth once daily. skfyaamkeul-quyjykkmy-mimepyvm (TRELEGY ELLIPTA) 100-62.5-25 mcg inhalation powder DAILY [...] plan. Larry Talley PA-C documented in this encounterAultman [facility]06-27-2023 Miscellaneous Notes* Telephone Encounter - Maribeth Owen LPN - 03/24/2023 8:14 AM EDT Patient has [...] you. Maribeth Owen LPN documented in this encounterAultman [facility]04-05-2023 Miscellaneous Notes* Telephone Encounter - Soila Easton [...] problem. Efren Thao LPN documented in this encounterAultman Alliance [facility] Hospital03-03-2023 History of Present illness Narrative* Soila Rustam, REGIONAL LIAISON.RN FACULTY - 11/28/2022 1:03 PM EST CC: Patient [...] Stage 3 severe COPD by GOLD classification ([facility]) 2018 Tobacco use greater than 30 years [...] Puffs as instructed four times dailyas needed. baaocsxfsxa-pjayjisml-aplgtaly (TRELEGY ELLIPTA) 100-62.5-25 mcg inhalation powder DAILY xroots-ootbovqh-uuuhmwg (CREON 24) 24,000-76,000 -120,000 unit delayed release [...] plan. Soila Easton APRN.CNP documented in this encounterAultman Alliance [facility] Hospital03-02-2023 Miscellaneous Notes* Telephone Encounter - Mihaela Cheng RN - 11/27/2022 4:03 PM EST Images from the original note were not included. Pt contacted with provider's messages below. Pt had Neurology appt 11/26/22. Pt made appt to see Soila Easton CNP for 11/28/22 to discuss labs and medications per Dr. Elkins recommendation. Mihaela Cheng RN Result Notes Misbah Elkins MD 11/27/2022 2:53 PM EST Patient is currently prediabetic as per her labs. The vitamin levels are still to be back Regards, Misbah Elkins MD 11/27/2022 2:51 PM EST Please pursue consult with neuro as the xr of the back did not really show any major issues Regards, Misbah Elkins MD documented in this encounterAultman Alliance [facility] Hospital03-02-2023 Miscellaneous Notes* Telephone Encounter - Mihaela Cheng RN - 11/27/2022 4:02 PM EST Pt notified of message below. Appt made with Soila Easton CNP for 11/28/22 as advised by PCP below. Mihaela Cheng RN * Telephone Encounter - Misbah Elkins MD - 11/27/2022 3:05 PM EST [...] to find transportation for EMG scheduled in [place]. Patient is requesting to have EMG done at [facility]. Order faxed per patient request. Referral placed. EMG not cancelled yet incase unable to schedule with [facility]. Janene Grimm RN documented in this encounterAultman Alliance [facility] Hospital03-01-2023 Instructions* Patient Instructions* Mariluz Verduzco PA-C - [...] Please reach out with any questions. [facility] address: [address] [place] [address] Dr. [place] [address] documented in this encounterAultman Alliance [facility] Hospital03-01-2023 History of Present illness Narrative* Mariluz Verduzco PA-C - 11/26/2022 1:16 PM EST Images from the original note were not included. Neurology Outpatient Clinic Date: November 26, 2022 Patient Name: Gracie Banuelos Referring physician: Misbah Elkins [address] [place] [address] Consult requested for paresthesias by Dr. Elkins. Recommendations will be communicated via shared medical record or US mail. Primary physician: Misbah Elkins [address] [place], [place] [id number] Reason for Evaluation: Paresthesias Subjective HPI Gracie [...] didhave 1 incident of bowel incontinence on Dleia, has not happened since. Patient denies any [...] of 1.38, GFR 44 MRI cervical spine 12/27/18 IMPRESSION: Degenerative change in the cervical spine [...] by mouth once daily. 30 tablet 11 oshtxmwlrxw-kgtclkulg-xentjsjs (TRELEGY ELLIPTA) 100-62.5-25 mcg inhalation powder DAILY yjkcnh-wrtxawnq-wppbqbn (CREON 24) 24,000-76,000 -120,000 unit delayed release [...] airways disease (HCC) Alcohol dependence in remission ([facility]) 07/10/2015 Alcohol use disorder 08/27/2017 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 pancreatitis Alcoholic hepatitis 05/18/2012 Alcoholic liver disease ([facility]) 11/16/2013 Anemia Anxiety with depression Asthma Chronic hypoxemic respiratory failure (HCC) COPD (chronic obstructive pulmonary disease) ([facility]) 05/25/2012 DDD (degenerative disc disease), cervical 09/03/2018 [...] Stage 3 severe COPD by GOLD classification ([facility]) 2018 Tobacco use greater than 30 years [...] Cranial Nerves: CNII: Visual acuity normal, visual shemran full to confrontation CNIII, IV, : Pupils [...] Power: MUSCLES Upper Extremity RIGHT LEFT Deltoid 5/5 5/5 Biceps 5/5 5/5 Triceps 5/5 5/5 Wrist Extension 5/5 5/5 Wrist Flexion 5/5 5/5 Finger Flexion 5/5 5/5 Finger Extension 5/5 5/5 Finger Abd 5/5 5/5 Finger Add 5/5 5/5 MUSCLES Lower Extremity RIGHT LEFT Hip Flexion 5/5 5/5 Hip Extension 5/5 5/5 BiFem (Knee Flex) 5/5 5/5 Quads (Knee Ext) 5/5 5/5 Gastroc (Plantflx) 5/5 5/5 TibAnt (Dorsiflx) 5/5 5/5 FlxHLong (Toe Flex) 5/5 5/5 ExtHLong (Toe Ext) 5/5 5/5 Sensory Examination Right lower extremity: Temperature is [...] MCP. Intact propioception Reflexes Right Left Bicep /4 2/4 Tricep /4 / BrRad /4 / Knee /12 27/ Ankle /10/01 Loving Response Negative Negative Coordination: finger-to- nose-finger intact bilaterally and buap-iv-gesa intact bilaterally. Gait: Patient's gait is normal [...] which included preparing to see the patient, wpfr-jm-rzql patient care, completing clinical documentation, obtaining and/or reviewing separately obtained history, performing a medically appropriate examination, counseling and educating the pat ient/family/caregiver, and ordering medications, tests, or procedures. Mariluz Verduzco PA-C [facility] Neurology This document has been created with the use of voice recognition technology. It may contain inaccuracies: (e.g. misspellings, inaccurate syntax or word sense) that have escaped review. documented in this encounterAultman Alliance [facility] Hospital02-28-2023 History of Present illness Narrative* Misbah Elkins MD - 11/25/2022 10:19 AM EST [...] airways disease (HCC) Alcohol dependence in remission ([facility]) 07/10/2015 Alcohol use disorder 08/27/2017 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 pancreatitis [...] inhaler lisinopril (ZESTRIL, PRINIVIL) 10 mg tablet nkycqbouaug-ibnytiudf-cmaoqcxx (TRELEGY ELLIPTA) 100-62.5-25 mcg inhalation powder hwmtov-omxjldtt-mkzhcpx (CREON 24) 24,000-76,000 -120,000 unit delayed release [...] - good control - Continue current medication. Misbah Elkins MD documented in this encounterAultman Alliance Community Hospital02-28-2023 Nurse Note* Eda Moore LPN - 11/25/2022 9:53 AM EST and had put a hold on eye surgery for now. Patient is going to main [facility] on December 03 for possible surgery documented in this encounterAultman Alliance [facility] Hospital02-15-2023 Miscellaneous Notes* Telephone Encounter - Eileen Chavez Ma - 11/12/2022 1:27 PM EST Patient notified. * Telephone Encounter - Eileen Chavez Ma - 11/12/2022 1:25 PM EST ----- Message from Misbah Elkins MD sent at 11/12/2022 12:50 PM [...] its not really worsening. documented in this encounterAultman Alliance [facility] Hospital02-14-2023 History of Present illness Narrative* Sonja Victor [...] 11, 2022 4:49 PM documented in this encounterAultman Alliance [facility] Hospital02-14-2023 History of Present illness Narrative* Misbah Elkins MD - 11/11/2022 4:16 PM EST Reason for Visit Patient presents with: Hospital F/U: RSV d/c'd 10/30/21 Gracie Banuelos is a 57 year old female who presents here today for Above Complaints. Health Maintenance MAMMOGRAM HPI Here with her \sister, This is a 57-year-old gentleman with a past medical history of mixed hyperlipidemia, hypertension, alcohol use in remission, tobacco use in remission, major depression, COPD, alcohol induced pancreatitis on use of Creon regularly. Was admitted with ocular cellulitis at [facility] and was transferred to [facility] for oculoplastics. No interventions were made by occulopastics as she got better on abx on her own In the [facility] she had an episode of respiratory [...] airways disease (HCC) Alcohol dependence in remission ([facility]) 07/10/2015 Alcohol use disorder 08/27/2017 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 pancreatitis Alcoholic hepatitis 05/18/2012 Alcoholic liver disease ([facility]) 11/16/2013 Anemia Anxiety with depression Asthma Chronic hypoxemic respiratory failure ([facility]) COPD (chronic obstructive pulmonary disease) ([facility]) 05/25/2012 DDD (degenerative disc disease), cervical 09/03/2018 [...] Stage 3 severe COPD by GOLD classification ([facility]) 2018 Tobacco use greater than 30 years [...] inhaler lisinopril (ZESTRIL, PRINIVIL) 10 mg tablet hodzbjkiwmi-ngivdrpcl-gbpgjgwn (TRELEGY ELLIPTA) 100-62.5-25 mcg inhalation powder qbljev-xaybtvnp-cpnvpks (CREON 24) 24,000-76,000 -120,000 unit delayed release [...] FRONTAL/LAT 3. Alcohol use disorder, moderate, dependence ([facility]) - ICD9: 303.90, ICD10: F10.20 4. Essential [...] pancreatitis (HCC) - ICD9: 577.1, ICD10: K86.0 Misbah Elkins MD documented in this encounterAultman Alliance [facility] Hospital02-09-2023 NoteTeaching Physician Note: I have seen and examined the patient and supervised the procedures performed. I personally obtained the ochoa portions of the history and the ophthalmologic exam. I reviewed the resident's documentation and discussed the patient's history and examination with the resident. I agree with the resident's decision making as documented in the resident's note. Yumiko Guerin MDOhioHealth Dublin [facility]02-09-[address] Bonilla [facility] November 06, 2022 3:03pm Note Date/Time November 06, 2022 9 :43am [facility] Medical Records Department [address] [place] [address] Progress Note - Hospitalist 11/06/22 0940 MR#: [id number] Acct: [id number] Name: GRACIE BANUELOS Rep #:[id number] : 1965 57 From: Anastacia Bonilla MD PCP: SOILA OLDER, PROTECTION ENGINEER-C Status:ADM IN Location: [place] [address] Reason for Visit Reason for Visit: Diagnoses [...] 74.3 H, Lymph % (Auto) 11.1 L, Emmons % (Auto) 9.9, Eos % (Auto) 1.6, [...] prophylaxis: heparin Charges/Coding Visit Charges Inpatient E&M: 65045 Subs Hosp L2 11/06/22 1503 <Electronically signed by Anastacia Bonilla MD> Cosigner Signature (if applicable): CC: ~ Signed [facility] Work Phone: [phone]) 481-924602-09-[address] Iverson [facility] November 06, 2022 2:28pm Note Date/Time November 06, 2022 2 :28pm [facility] Medical Records Department [address] [place] [address] Progress Note - Nephrology 11/06/22 1427 MR#: [id number] Acct: [id number] Name: GRACIE BANUELOS Rep #:[id number] : 1965 57 From: Courtney sanders MD PCP: SOILA EASTON PROTECTION ENGINEER-C Status:ADM IN Location: [place] [address] Subjective Subjective No new complaints. Breathing looks [...] 74.3 H, Lymph % (Auto) 11.1 L, Emmons % (Auto) 9.9, Eos % (Auto) 1.6, [...] Acute renal failure. Prior to admission at [facility] and at the time ofadmission at [facility] creatinine was normal. She was subsequently transferred to [facility]. Discharge creatinine was 1.5. Urine analysis [...] edema. DC fluids Can DC Frankel catheter 11/06/228 <Electronically signed by Courtney Iverson MD> Cosigner Signature (if applicable): CC: ~ Signed [facility] Work Phone: [phone]) 742-383202-09-2023 History of Present illness Narrative* Yumiko Guerin [...] resident's note. Yumiko Guerin MD * Jeffery iJn MD - 10/20/2022 12:44 PM EST New [...] did not have beds, sent [facility] admission for orbital cellulitis - [...] Seen with Dr. Guerin documented in this [id number] Sebastian [facility] November 06, 2022 8:41am Note Date/Time November 06, 2022 5 :54am [facility] Records Department [address] [place] [address] Progress Note - Golf Course Manager 11/06/22 0553 MR#: [id number] Acct: [id number] Name: GRACIE BANUELOS Rep #:[id number] : 1965 57 From: Gonzalo Sebastian DO PCP: SOILA EASTON PROTECTION ENGINEER-C Status:ADM IN Location: ICU CVICU20 3-1 Assessment [...] medicationsas indicated. This note was generated with [employer] dictation software. It may contain incorrectwords, spelling, [...] 74.3 H, Lymph % (Auto) 11.1 L, Emmons % (Auto) 9.9, Eos % (Auto) 1.6, [...] Psych cooperative Charges/Coding Visit Charges Inpatient E&M: 62712 Subs Hosp L2 11/06/22 0841 <Electronically signed by Gonzalo Sebastian DO> Cosigner Signature (if applicable): CC: ~ Signed [facility] Work Phone: [phone]) 150-655102-08-[address] Bonilla [facility] November 05, 2022 4:09pm Note Date/Time November 05, 2022 1 2:55pm [facility] Records Department [address] [place] [address] Progress Note - Hospitalist 11/05/22 1252 MR#: [id number] Acct: [id number] Name: GRACIE BANUELOS Rep #:[id number] : 1965 57 From: Anastacia Bonilla MD PCP: SOILA EASTON, PROTECTION ENGINEER-C Status:ADM IN Location: ICU CVICU20 3-1 Reason [...] Clarity Clear, Urine pH 6.0, Ur Specific [place] 1.015, Urine Protein 30 H, Urine Glucose [...] 85.4 H, Lymph % (Auto) 4.8 L, Emmons % (Auto) 4.4, Eos % (Auto) 0.6, [...] Signed: Maribeth Andino MD at 17:01 EST , Rhythm Strip Rhythm Strip: Sinus [...] prophylaxis: heparin Charges/Coding Visit Charges Inpatient E&M: 61854 Subs Hosp L2 11/05/22 1609 <Electronically signed by Anastacia Bonilla MD> Cosigner Signature (if applicable): CC: ~ Signed [facility] Work Phone: [phone]) 448-220102-08-[address] Bonilla [facility] November 05, 2022 4:07pm Note Date/Time November 05, 2022 9 :45[facility] [address] [facility] [place] [address] Pharmacokinetic/Renal -Consult 11/05/22 0941 MR#: [id number] Acct: [id number] Name: GRACIE BANUELOS Rep #:[id number] : 1965 57 From: Donn Wilson PCP: SOILA EASTON, PROTECTION ENGINEER-C Status:ADM IN Y Location: ICU CVICU20 3-1 [...] as required. Follow-Up Labs: Trough Vancomycin - 2.10. @1330 before 1400 dose 11/05/22 0945 <Electronically signed by Donn Wilson > Date _ Donn Wilson 11/05/22 1607 <Electronically signed by Anastacia cisneros MD> Cosigner Signature (if applicable): Date Anastacia Bonilla MD CC: ~ Signed [facility] Work Phone: [phone]) 922-773302-08-[address] Iverson [facility] November 05, 2022 10:42am Note Date/Time November 05, 2022 1 0:42am [facility] Medical Records Department [address] [place] [address] Progress Note - Nephrology 11/05/22 1037 MR#: [id number] Acct: [id number] Name: GRACIE BANUELOS Rep #:[id number] : 1965 57 From: Courtney sanders MD PCP: SOILA EASTON, PROTECTION ENGINEER-C Status:ADM IN Location: ICU CVICU20 3-1 Subjective [...] Clarity Clear, Urine pH 6.0, Ur Specific [place] 1.015, Urine Protein 30 H, Urine Glucose [...] 85.4 H, Lymph % (Auto) 4.8 L, Emmons % (Auto) 4.4, Eos % (Auto) 0.6, [...] Acute renal failure. Prior to admission at [facility] and at the time ofadmission at [facility] creatinine was normal. She was subsequently transferred to [facility]. Discharge creatinine was 1.5. Urine analysis [...] Cosigner Signature (if applicable): CC: ~ Signed [facility] Work Phone: [phone]) 103-935202-08-[address] Sebastian [facility] November 05, 2022 9:58am Note Date/Time November 05, 2022 5 :52am [facility] Medical Records Department [address] [place] [address] Progress Note - Golf Course Manager 11/05/22 0551 MR#: [id number] Acct: [id number] Name: GRACIE BANUELOS Rep #:[id number] : 1965 57 From: Gonzalo Sebastian DO [...] medicationsas indicated. This note was generated with The Society dictation software. It may contain incorrectwords, spelling, [...] Clarity Clear, Urine pH 6.0, Ur Specific [place] 1.015, Urine Protein 30 H, Urine Glucose [...] 85.4 H, Lymph % (Auto) 4.8 L, Emmons % (Auto) 4.4, Eos % (Auto) 0.6, [...] Behavior: restless Charges/Coding Visit Charges Inpatient E&M: 94864 Subs Hosp L3 11/05/22 0958 <Electronically signed by Gonzalo Sebastian DO> Cosigner Signature (if applicable): CC: ~ Signed [facility] Work Phone: [phone]) 245-239302-08-[address] Bonilla [facility] November 05, 2022 7:20am Note Date/Time November 04, 2022 9 :22pm [facility] Medical Records Department [facility] [place] [address] Pharmacokinetic/Renal -Consult 11/04/222119 MR#: [id number] Acct: [id number] Name: GRACIE BANUELOS Rep #:[id number] : 1965 57 From: Sudhir Lott [facility] PCP: SOILA EASTON, PROTECTION ENGINEER-C Status:ADM IN Y Location: ICU CVICU20 3-1 [...] at 0800 11/04/222121 <Electronically signed by Sudhir Varela Do [facility]> Date _ [facility] 11/05/22719 <Electronically signed by Anastacia cisneros MD> Cosigner Signature (if applicable): Date Anastacia Bonilla MD CC: ~ Signed [facility] Work Phone: [phone]) [phone] [facility] November 04, 2022 3:49pm Note Date/Time November 04, 2022 1 0:22[facility] Medical Records Department [address] [place] [address] Progress Note - Hospitalist 11/04/22 1020 MR#: [id number] Acct: [id number] Name: GRACIE BANUELOS Rep #:[id number] : 1965 57 From: Anastacia Bonilla MD PCP: SOILA EASTON PROTECTION ENGINEERSierraC Status:ADM IN Location: ICU CVICU20 3-1 Subjective [...] 81.2 H, Lymph % (Auto) 5.6 L, Emmons % (Auto) 4.6, Eos % (Auto) 5.9 [...] prophylaxis: lovenox Charges/Coding Visit Charges Inpatient E&M: 13746 Subs Hosp L3 Reason for Visit Reason for Visit: Diagnoses Chronic obstructive pulmonary disease, unspecified (11/01/22) Acute kidney failure, unspecified (11/01/22) Nausea with vomiting, unspecified (11/01/22) Diarrhea, unspecified (11/01/22) 11/04/22 8540 <Electronically signed by Anastacia Bonilla MD> Cosigner Signature (if applicable): CC: ~ Signed [facility] Work Phone: [phone]) 879-563602-07-[address] Iverson [facility] November 04, 2022 11:44am Note Date/Time November 04, 2022 1 1:44am [facility] Medical Records Department [address] [place] [address] Consultation - Nephrology 11/04/22 1139 MR#: [id number] Acct: [id number] Name: GRACIE BANUELOS Rep #:[id number] : 1965 57 From: Courtney sanders MD PCP: SOILA EASTON, PROTECTION ENGINEER-C Status:ADM IN Location: ICU CVICU20 3-1 Assessment & Plan Assessment/Plan (1) Acute kidney injury: PLAN: Acute renal failure. Prior to admission at [facility], at the time of admission at [facility] creatinine was normal. [facility] was [facility]. Discharge creatinine was 1.5. Urine analysis [...] have significant diarrhea prior to admission to [facility]. HPI Consult Data Date of Consult: 11/04/22 HPI Narrative Reason for Consultation: Acute renal failure HPI Narrative: GRACIE BANUELOS, is a 57 F who presents to the hospital with severe diarrhea. Nephrology on consultation for acute renal failure. No prior kidney disease. Baseline creatinine was normal. She was initially admitted to [facility] followed by [facility]. Admission diagnosis was orbital cellulitis. Was seen by ophthalmology at [facility] as well. Admission creatinine was normal. [...] increased significantly. Getting a CT chest abdomen. [facility] Medical History Abdominal pain Alcohol abuse [...] Q6H antibiotic 11/01/22 [History Last Taken Unknown] ruzirc-ffpvvgwa-tzadout 24,000-76,000-120,000 unit capsule,delayed rel (Creon) 1cap PO [...] Allergy Hives Verified 11/01/22 19:37 hydrocodone [From Rembrandt] AdvReac Itching Verified 11/01/22 19:37 Family History [...] 81.2 H, Lymph % (Auto) 5.6 L, Emmons % (Auto) 4.6, Eos % (Auto) 5.9 [...] Iverson MD> Cosigner Signature (if applicable): CC: PROTECTION ENGINEERMiriam Eduardo; PROTECTION ENGINEERMiriam EASTON; Dr. Ciarra Ross MD; Dr. Freddie Perdue MD; Dr. Gonzalo Sebastian DO; Dr. Courtney Iverson MD; Dr. Olivier Coffman MD; Dr. Lisa Ochoa MD; Dr. Dieter Harrison MD~ Signed [facility] Work Phone: [phone]) 391-803802-07-[address] Sebastian [facility] November 04, 2022 10:07am Note Date/Time November 04, 2022 7 :12am [facility] Medical Records Department [address] [place] [address] Progress Note - Golf Course Manager 11/04/22 0709 MR#: [id number] Acct: [id number] Name: GRACIE BANUELOS Rep #:[id number] : 1965 57 From: Gonzalo Sebastian DO [...] medicationsas indicated. This note was generated with The Society dictation software. It may contain incorrectwords, spelling, [...] 81.2 H, Lymph % (Auto) 5.6 L, Emmons % (Auto) 4.6, Eos % (Auto) 5.9 [...] affect normal Charges/Coding Visit Charges Inpatient E&M: 62030 Subs Hosp L2 11/04/22 1007 <Electronically signed by Gonzalo Sebastian DO> Cosigner Signature (if applicable): CC: ~ Signed [facility] Work Phone: 1(796) 229-281702-06-[address] Bonilla [facility] November 03, 2022 3:59pm Note Date/Time November 03, 2022 3 :06pm [facility] Medical Records Department [address] [place] [address] [place] [address] Progress Note - Hospitalist 11/03/22 1501 MR#: [id number] Acct: [id number] Name: GRACIE BANUELOS Rep #:[id number] : 1965 57 From: Anastacia Bonilla MD PCP: SOILA EASTON, PROTECTION ENGINEER-C Status:ADM IN Location: ICU CVICU20 3-1 Subjective [...] 74.5 H, Lymph % (Auto) 11.6 L, Emmons % (Auto) 6.9, Eos % (Auto) 5.0, [...] 94.5 H, Lymph % (Auto) 2.2 L, Emmons % (Auto) 1.9, Eos % (Auto) 0.1, [...] Signed: Carl Zarco MD at 20:11 EST Reading Location ID and State: [facility] / [place] , Service support , Rhythm Strip Rhythm [...] prophylaxis: lovenox Charges/Coding Visit Charges Inpatient E&M: 05263 Subs Hosp L3 Reason for Visit Reason for Visit: Diagnoses Chronic obstructive pulmonary disease, unspecified (11/01/22) Acute kidney failure, unspecified (11/01/22) Diarrhea, unspecified (11/01/22) 11/03/22 7556 <Electronically signed by Anastacia Bonilla MD> Cosigner Signature (if applicable): CC: ~ Signed [facility] Work Phone: [phone]) 285-431902-06-[address] Sebastian [facility] November 03, 2022 8:27am Note Date/Time November 03, 2022 7 :12am [facility] Medical Records Department [address] [place] [address] Consultation - Golf Course Manager 11/03/22 0710 MR#: [id number] Acct: [id number] Name: BANUELOSFERNIEGRACIE S Rep #:[id number] : 1965 57 From: Gonzalo Sebastian DO PCP: SOILA EASTON, PROTECTION ENGINEER-C Status:ADM IN Location: ICU CVICU20 3-1 Assessment [...] medicationsas indicated. This note was generated with [employer] dictation software. It may contain incorrectwords, spelling, [...] medication. The patient was recently admitted in [place] for periorbital cellulitis. The patient reported to [...] with IV Solu-Medrol, Ativan and aerosol treatments. [facility] Medical History Abdominal pain Alcohol abuse [...] Q6H antibiotic 11/01/22 [History Last Taken Unknown] tdrncy-qfozvpov-wiaxezp 24,000-76,000-120,000 unit capsule,delayed rel (Creon) 1cap PO [...] Allergy Hives Verified 11/01/22 19:37 hydrocodone [From Rembrandt] AdvReac Itching Verified 11/01/22 19:37 Family History [...] 74.5 H, Lymph % (Auto) 11.6 L, Emmons % (Auto) 6.9, Eos % (Auto) 5.0, [...] 94.5 H, Lymph % (Auto) 2.2 L, Emmons % (Auto) 1.9, Eos % (Auto) 0.1, [...] EST , Charges/Coding Visit Charges Inpatient E&M: 00665 Init Hosp L3 11/03/22 0827 <Electronically signed by Gonzalo Sebastian DO> Cosigner Signature (if applicable): CC: PROTECTION ENGINEER-C Ani Eduardo; PROTECTION ENGINEER-C SOILA EASTON; Dr. Ciarra Ross MD; Dr. Freddie Perdue MD; Dr. Gonzalo Sebastian DO; Dr. Olivier Coffman MD; Dr. Lisa Ochoa MD; Dr. Dieter Harrison MD~ Signed [facility] Work Phone: 1([phone]) 209-160702-05-[address] Ross [facility] November 02, 2022 9:51pm Note Date/Time November 02, 2022 9 :10pm [facility] Medical Records Department [address] [place] [address] Progress Note 11/02/222107 MR#: [id number] Acct: [id number] Name: GRACIE BANUELOS Rep #:[id number] : 1965 57 From: Ciarra Ross MD PCP: KEN STAHLC Status:ADM IN Location: ICU CVICU20 3-1 Progress [...] Cosigner Signature (if applicable): CC: ~ Signed [facility] Work Phone: 1(775) 687-888302-05-[address] Fatima [facility] November 02, 2022 8:23pm Note Date/Time November 02, 2022 8 :19pm [facility] Medical Records Department [address] [place] [address] Progress Note - Hospitalist 11/02/222014 MR#: [id number] Acct: [id number] Name: GRACIE BANUELOS Rep #:[id number] : 1965 57 From: Mahamed Fatima DO PCP: CARMEN STAHL Status:ADM IN Location: ICU CVICU20 3-1 Hospitalist [...] of critical care time. Procedures Hospitalists Procedures: 08074 Critial Care 1st Hr 11/02/222022 <Electronically signed by Mahamed Fatima DO> Cosigner Signature (if applicable): CC: ~ Signed [facility] Work Phone: 1([phone]) 494-910602-05-[address] Ochoa [facility] November 02, 2022 12:07pm Note Date/Time November 02, 2022 1 2:07pm [facility] Medical Records Department [address] [place] [address] Progress Note - Hospitalist 11/02/22 1156 MR#: [id number] Acct: [id number] Name: GRACIE BANUELOS Rep #:[id number] : 1965 57 From: Lisa Ochoa MD PCP: KEN STAHLC Status:ADM IN Location: [place] 190132-1 Subjective Subjective Reports still feeling little dehydrated [...] % (Auto) 66.4, Lymph % (Auto) 16.8L, Emmons % (Auto) 11.3 H, Eos % (Auto) [...] (Auto) 62.9, Lymph % (Auto) 17.1 L, Emmons % (Auto) 13.2 H, Eos % (Auto) [...] alcoholic hepatitis, COPD, GERD who presented to [facility] 11/01 with poor urinary output and flank pain for 1 day. She was recently discharged from [facility] after being transferred from [facility] with right orbital cellulitis for acute ophthalmology [...] documentation, 30minutes Charges/Coding Visit Charges Inpatient E&M: 80687 Subs Hosp L2 11/02/22 1207 <Electronically signed by Lisa Ochoa MD> Cosigner Signature (if applicable): CC: ~ Signed [facility] Work Phone: [phone] 532-469302-05-2023 History and physical note Author Dr. Ross [facility] November 02, 2022 1:42am Note Date/Time November 01, 2022 1 0:21pm [facility] Medical Records Department [address] [place] [address] H&P Exam - Hospitalist 11/01/222220 MR#: [id number] Acct: [id number] Name: GRACIE BANUELOS Rep #:[id number] : 1965 57 From: Ciarra Ross MD PCP: SOILA EASTON PROTECTION ENGINEERSierraC Status:ADM IN Location: [facility] GJ660-6 HPI - General General Date of Admission: 11/01/22 Date of Service: 11/01/22 Chief Complaint: Poor urine output, bilateral flank pain- 1 day HPI Narrative Cristina BANUELOS, is a 57 F who presents the above. Patient was recently discharged from [facility] after being transferred from [facility] with right orbital cellulitis for acute ophthalmology evaluation. Over the course ofhis stay in the [facility], patient developed severe diarrhea with resultantAKI. She [...] Q6H antibiotic 11/01/22 [History Last Taken Unknown] kmffdx-wkrhzaxh-wdyeead 24,000-76,000-120,000 unit capsule,delayed rel (Creon) 1cap PO [...] Allergy Hives Verified 11/01/22 19:37 hydrocodone [From Rembrandt] AdvReac Itching Verified 11/01/22 19:37 Family History [...] diarrhea Patient with recent CHUY from hospitalization [facility], reportedly improved Admitted creatinine of 2.05 Will [...] the bedside. Charges/Coding Visit Charges Inpatient E&M: 55329 Init Hosp L3 11/02/22 0142 <Electronically signed by Ciarra Ross MD> Cosigner Signature (if applicable): CC: PROTECTION ENGINEER-C SOILA EASTON; Dr. Ciarra Ross MD~ Signed [facility] Work Phone: [phone]) [phone] Tang [facility] November 01, 2022 10:20pm Note Date/Time November 01, 2022 8 :27pm [facility] Medical Records Department [address] [place] [address] Emergency Department Summary 11/01/22 MR#: [id number] Acct: [id number] Name: GRACIE BANUELOS Rep #:[id number] : 1965 57 From: Edmund Tang MD [...] for 3 days. Patient was transferred to [facility]. Records were reviewed. Patient did have stool [...] Prior similar symptoms: No Recent Illness/Hospitalization: No PFSH PFSH Medical History Abdominal pain Alcohol abuse [...] Anxiety 04/19/19 [History Last Taken 06/10/21 21:00] yvvmrt-pgjipilj-gbdtcng 24,000-76,000-120,000 unit capsule,delayed rel 3 ea PO [...] Allergy Hives Verified 11/01/22 19:37 hydrocodone [From Rembrandt] AdvReac Itching Verified 11/01/22 19:37 Family History [...] outside facility reviewed. Detail documented in the [facility] narrative CBC was added per the request [...] injury, Acute hyponatremia Disposition Disposition: Acute Care Hospital [facility] What to do if you have Problems For any increased pain, shortness of breath, bleeding, nausea or vomiting, chestpain, or any unexpected problems, contact your Primary Care Provider. Call [facility] ([phone]) or report to the closest Emergency Room. Call 911 if necessary. 11/01/222219 <Electronically signed by Edmund Tang MD> Cosigner Signature (if applicable): CC: CARMEN EASTON ~ Signed [facility] Work Phone: [phone]) 291-314902-03-2023 History of Present illness Narrative* Misbah Elkins MD - 10/31/2022 11:46 AM EST Reason for Visit Patient presents with: Hospital F/U: follow up from [facility] and , right eye cellulitis mass behind eye and mass found in lungs per patient Gracie Banuelos is a 57 year old female who presents here today for Above Complaints.. Health Maintenance MAMMOGRAM HPI Was admitted with ocular cellulitis at [facility] and was transferred to [facility] for oculopastics Prior to it becoming this [...] strained her self when she went to [facility]. Lisinopril was held. Cont the hold til [...] airways disease (HCC) Alcohol dependence in remission ([facility]) 07/10/2015 Alcohol use disorder 08/27/2017 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 pancreatitis Alcoholic hepatitis 05/18/2012 Alcoholic liver disease ([facility]) 11/16/2013 Anemia Anxiety with depression Asthma Chronic hypoxemic respiratory failure (HCC) COPD (chronic obstructive pulmonary disease) ([facility]) 05/25/2012 DDD (degenerative disc disease), cervical 09/03/2018 [...] Stage 3 severe COPD by GOLD classification ([facility]) 2018 Tobacco use greater than 30 years [...] inhaler lisinopril (ZESTRIL, PRINIVIL) 10 mg tablet dmvrvwmjvbn-fyhtufxph-etqavivh (TRELEGY ELLIPTA) 100-62.5-25 mcg inhalation powder wlguia-jlfybtfy-rioqkne (CREON 24) 24,000-76,000 -120,000 unit delayed release [...] worsened because of the chemicals in tobacco. Misbah Elkins MD [facility] NoteSend Summary: Discharge Summary Providers: Provider RoleProvider Name ReferringCorrect Info, Needed Jessica HammonderSoila PrimaryFree, Text Entry Note Recipients: Tai Peoples MD Correct Info, NeededMD Free, Text Entry, Soila Devi, REGIONAL LIAISON-RN FACULTY Jessica Ellis MD Discharge: Summary: Admission Date: .23-Oct-2022 23:56:00 Discharge Date: 29-Oct-2022 Attending Physician at Discharge: Jessica Ellis Admission Reason: Preseptal Cellulitis(1) Final Discharge Diagnoses: Preseptal cellulitis of right eye Procedures: none Condition at Discharge: Fair Disposition at Discharge: .Home Vital Signs: T PRBPMAPSpO2 Value36.48318479/6397% Date/Time10/29 5:122/1 5:122/1 5:122/1 5:122/1 5:12 Range(36.1C - 39C ) (69 - [...] vs. infiltrative mass. Vanc/zosyn were started at [facility]. Oculoplastic were consulted and there was a [...] You presented to us as transfer from [facility] for a possible biopsy of the [...] on Augmentin 875mg twice a day until 2/7/23. While you were here you developed diarrhea [...] Care Provider Scheduled Date/Time: 15-Dec-2022 16:00 Location: [address] [place] [address], [address] [place] [phone] fax Follow-Up Appointment 02: Physician/Dept/Service: Ophthalmology: Dr Ortega Scheduled Date/Time: 03-Dec-2022 15:30 Location: [facility] [address] , [address] [facility] [address] Follow-Up Appointment 03: Physicia (more content not included)...[facility]01-31-2023 NoteThis report has been cancelled.[facility]01-27-2023 Note History of Present Illness: /Lactating: Are You no Are You Currently Breastfeedingno Admission Reason: Preseptal Cellulitis HPI: She is a 57 year old woman with history of COPD (GOLD Stage 3, FEV1 55%), anxiety, HTN, DLD who is presenting as a transfer to [facility] from [facility] for further management of preseptal cellulitis [...] she presented to the ER initially in [place]. A brief summary of her course prior to arrival to [facility] is seen in the two paragraphs below. On or about 10/19 she had pain in her right eye that worsened to the point she was unable to tolerate it at home with ibuprofen so she presented to the [place] [facility] Department. At that time she had a CT scan of her orbits which showed right orbital preseptal and orbital cellulitis without evidence of orbital compartment syndrome. She had elevated WBC count to 13.9 with neutrophilic predominance. She had CRP elevated to 42.6 and ESR of 75 mm/h. She was given one dose of clindamycin in the [place] ER. On 10/20 she arrived at the [facility] and evaluated by ophthalmology who [...] On 10/22 ophthalmology recommended transfer to or [facility] for oculoplastics care given need for potential cut-down biopsy which was unable to be accommodated at [facility]. When I spoke with the patient [...] exacerbated with movement, especially the transit from [facility]. It was controlled at OSH with oxycodone [...] daily Mirtazapine 45mg QHS Pertinent Labs/Imaging at [facility]/[place]: ESR/CRP elevated to 75 and 42 respectively. Blood Cx NGTD at [place] on arrival Rheumatoid Factor negative C. Diff [...] conjunctivitis. There is enha (more content not included)...[facility]01-27-2023 NoteDISCHARGE SUMMARY PATIENT INFORMATION: Name: Gracie Banuelos Date of Admission: 10/20/2022 8:44 AM Discharge Date: 10/23/2022 : 1965 57 year old Admitting Physician: Robby Bush MD PCP: No primary care provider on file. Discharge Physician: ROBBY BUSH TRANSFERRED TO [facility] COURSE AND OUTCOME: Gracie Banuelos is a 57 year old year old female who presented to [facility] on 10/20/2022 8:44 AM. Ms. Banuelos is a 57 yof with COPD, active tobacco abuse, anxiety, HTN, sent from OSH [[place] [facility]] for evaluation of right eye swelling, erythema and pain with movement. Infectious diseases, ENT, and Ophthalmology is consulted and she was started on empiric abx. MRI orbit Abnormal infiltration throughout the right retroantral and extraconal fat as well as the pterygopalatine fossa and diffusely throughout the right clinical trial coordinator space with asymmetry of the muscles of mastication. ENT performed nasal endoscopy - without signs of fungal infection. ID recommended to hold antifungals Ophthalmology strongly recommended orbital biopsy to r/o infectious vs inflammation or lymphoma which could not be arranged at [facility]. Per ophthalmology recommendations and after discussing the patient, patient was transferred [facility]. I examined pt on day of discharge. She was resting comfortably in bed, reports blurry vision and pain in her right eye Periorbital erythema and swelling much improved but eye redness persisted. She was transferred to [facility] on night of 10/23 ~2099. I was not at hospital during the transfer Please do not hesitate to contact [facility] division of Hospital Medicine if you have any questions or concerns. It was a pleasure getting to take care of your patient during her hospital stay. INPT CONSULTS IP ENT CONSULT IP INFECTIOUS DISEASE CONSULT F/U APPTS No follow-up provider specified. DIET: regular ACTIVITY: No restrictions DISPO: Discharged to TRANSFERRED TO [facility] []Home, []HHC, []SNF, []ECF, []Hospice, []AMA CONDITION [...] capsule TREATMENT TEAM: Treatment Team: Emergency Medicine Drug Safety Physician: Edwina Doyle; Consulting Physician: Stevie Goetz Infectious Disease; PCNA: Sherron Briones; 1st call: Ani Tuhrman APRN-IGOR OBJECTIVE FINDINGS AT DISCHARGE: BP 119/90 [...] SKIN: Normal coloration, warm, AND dry. NEURO: subway conductor grossly intact, normal speech, no lateralizing weakness. PSYCH: Awake, alert, oriented x 4. Affect appropriate. LABS Recent Labs 10/22/22 0958 WBC 16.0* HCT 35.3* PLT 332 Transmitter Chief Assessment IMAGING: CT CHEST W/O CONTRAST Result [...] emphysema is p (more content not included)...[facility] [id number] NoteDISCHARGE SUMMARY PATIENT INFORMATION: Name: Gracie Banuelos Date of Admission: 10/20/2022 8:44 AM Discharge Date: 10/23/2022 : 1965 57 year old Admitting Physician: Robby Bush MD PCP: No primary care provider on file. Discharge Physician: ROBBY BUSH TRANSFERRED TO [facility] COURSE AND OUTCOME: Gracie Banuelos is a 57 year old year old female who presented to [facility] on 10/20/2022 8:44 AM. Ms. Banuelos is a 57 yof with COPD, active tobacco abuse, anxiety, HTN, sent from OSH [[place] [facility]] for evaluation of right eye swelling, erythema and pain with movement. Infectious diseases, ENT, and Ophthalmology is consulted and she was started on empiric abx. MRI orbit Abnormal infiltration throughout the right retroantral and extraconal fat as well as the pterygopalatine fossa and diffusely throughout the right clinical trial coordinator space with asymmetry of the muscles of mastication. ENT performed nasal endoscopy - without signs of fungal infection. ID recommended to hold antifungals Ophthalmology strongly recommended orbital biopsy to r/o infectious vs inflammation or lymphoma which could not be arranged at [facility]. Per ophthalmology recommendations and after discussing the patient, patient was transferred to [facility] for further investigations. I examined pt on day of discharge. She was resting comfortably in bed, reports blurry vision and pain in her right eye Periorbital erythema and swelling much improved but eye redness persisted. She was transferred to [facility] on night of 10/23 ~2100. I was not at hospital during the transfer Please do not hesitate to contact [facility] division of Hospital Medicine if you have any questions or concerns. It was a pleasure getting to take care of your patient during her hospital stay. INPT CONSULTS IP ENT CONSULT IP INFECTIOUS DISEASE CONSULT Ophthalmology F/U APPTS No follow-up provider specified. DIET: regular ACTIVITY: No restrictions DISPO: Discharged to TRANSFERRED TO [facility] []Home, []HHC, []SNF, []ECF, []Hospice, []AMA CONDITION [...] capsule TREATMENT TEAM: Treatment Team: Emergency Medicine Drug Safety Physician: Edwina Doyle; Consulting Physician: Consult, Ip Infectious [...] SKIN: Normal coloration, warm, AND dry. NEURO: subway conductor grossly intact, normal speech, no lateralizing weakness. PSYCH: Awake, alert, oriented x 4. Affect appropriate. LABS No results for input(s): NA, K, CL, CO2, BUN, CREATININE, GLU, WBC, HCT, PLT in the last 72 hours. Invalid input(s): HEMOGLOBIN Transmitter Chief Assessment IMAGING: CT CHEST W/O CONTRAST Result [...] patent. Layering of (more content not included)...[facility] [id number] NoteDAILY PROGRESS NOTE Length of stay: 3 [...] breakfast atorvastatin, 20 mg, Oral, At Bedtime [MAR Hold] albuterol, 2.5 mg, Nebulization, Q4H RT [MAR Hold] ipratropium, 0.5 mg, Nebulization, Q4H RT vancomycin iv, 20 mg/kg, Intravenous, Every 12 hours enoxaparin, 40 mg, Subcutaneous, Daily ARIPiprazole, 5 mg, Oral, At Bedtime inzxsfp-xcpslv-qzlmrbpr, 12,000 Units, Oral, 3x Daily with Meals [...] in differential Plans Ophthalmology recommends transfer to [facility]/ orbital surgeon for biopsy. Discussed with patient and sister Domonique, they requested to try [facility] first. I initiated the transfer process today, awaiting call back from F. Continue empiric vancomycin and zosyn. Per ENT no signs of fungal infection on nasal scope, ID recommends to hold antifungal for now. Continue oxy Q4 and morphine iv prn for breakthrough pain Appreciate consultants recs DVT Prophylaxis lovenox Code Status: full code Plan for Disposition: anticipate at least 2 [place] stay I appreciate the excellent care from the nursing staff, and applications support engineer I personally reviewed patient medical record including blood work and radiology report Total time spent with patient is greater than 30 minutes more than 70% of the time is spent in direct patient care Dictated using voice recognition software. Document may contain errors not identified before finalizing. Robby Bush MD MS Pager # [phone] [employer] [id number] Telephone encounter Note* Telephone Encounter - Jaime Aggarwal MD - 10/23/2022 12:45 PM EST Spoke to Domonique, pt sister Explained rationale for biopsy and transfer All questions answered [facility] [employer] Work Phone: 1([phone]) 668-330301-26-2023 Miscellaneous Notes* Telephone Encounter - Jaime Aggarwal [...] Domonique back to discuss her sister Dx's [phone] ( PT will be home until 2:30 pm) documented in this [id number] Telephone encounter Note* Telephone Encounter - Airam Adam - 10/23/2022 12:08 PM EST PT's sister, Domonique calling in stating Dr. Aggarwal called and LVM for her regarding her sister that is inpatient. Please call Domonique back to discuss her sister Dx's [phone] ( PT will be home until 2:30 pm) [id number] NoteOTOLARYNGOLOGY HEAD AND NECK SURGERY DAILY PROGRESS [...] structures -ENT will continue to follow ENT [id number] Noman Prajapati MD PGY-3 Otolaryngology - Head AND Neck Surgery [facility] Service Pager: [phone] [id number] History of Present illness Narrative* Uri Peña [...] to orbital surgeon for biopsy: O-P at [facility] or Uri Peña MD * Jaime Aggarwal [...] from ENT - Recommend transfer to or [facility] for oculoplastics care. The patient will likely [...] with Dr. Kidd and documented in this [id number] NoteDAILY PROGRESS NOTE Length of stay: 2 [...] breakfast atorvastatin, 20 mg, Oral, At Bedtime [MAR Hold] albuterol, 2.5 mg, Nebulization, Q4H RT [MAR Hold] ipratropium, 0.5 mg, Nebulization, Q4H RT vancomycin iv, 20 mg/kg, Intravenous, Every 12 hours enoxaparin, 40 mg, Subcutaneous, Daily ARIPiprazole, 5 mg, Oral, At Bedtime rhsceva-anrcpm-xkcfpcwe, 12,000 Units, Oral, 3x Daily with Meals lisinopril, 10 mg, Oral, Daily PRN medications: guaiFENesin, ondansetron, diphenhydrAMINE, albuterol, vancomycin dosing pharmacy consult, HYDROmorphone HCl PF, hydrOXYzine BP 119/55 Pulse 90 Temp 98.5 ???F (36.9 ???C) (Oral) Resp 18 Ht 5' 3 (1.6 m) SpO2 91% PF 80 L/min Comment: COUGHING BMI 23.55 kg/m??? Intake/Output Summary (Last 24 hours) at 10/22/2022 1353 Last data filed at 10/22/2022 0514 Gross [...] excellent care from the nursing staff, and applications support engineer I personally reviewed patient medical record including blood work and radiology report Total time spent with patient is greater than 30 minutes more than 70% of the time is spent in direct patient care Dictated using voice recognition software. Document may contain errors not identified before finalizing. Robby Bush MD MS Pager # [phone] [employer] [id number] NoteOTOLARYNGOLOGY HEAD AND NECK SURGERY DAILY PROGRESS [...] Intake/Output Summary (Last 24 hours) at 10/21/2022 1922 Last data filed at 10/21/2022 1014 Gross [...] was elevated at OSH before transfer to and CRP to 42 favoring an infectious or inflammatory process. -Continue to monitor for clinical improvement with IV abx -Differential also is an infiltrative mass of the orbit and surrounding structures -ENT will continue to follow ENT [id number] Note: ENT team attempted to scope patient two separate times earlier this afternoon after critical findings on the MRI were noted. Esdras Brambila DDS, MD ENT rotator ENT pager [phone] [phone] History of Present illness Narrative* Claire Ruiz - 10/21/2022 2:30 PM EST Pt states that she seeing double with both eyes open The images are vertical, one on top of the other. It doesn't happen all day. It comes and goes. [facility]: OD cc: 20/30+3 OS:cc: 20/40-2 Ph: 20/25-1 Pupil OU 3/round/minimal/none EOM: Full CVF OU: Full IOP OD: 11 OS:08 * Noreen Denson MD - 10/21/2022 2:30 PM EST Follow [...] that did not have beds, sent to [facility] for possible admission for orbital cellulitis - [...] and thickening of the superior rectus muscle. \ Assessment - Right orbital inflammation extending from [...] and Jaime Aggarwal MD documented in this [id number] Note10/21/22 1143 Assessment and Discharge Planning Evaluation READMISSION LESS THAN 30 DAYS No READMISSION RISK SCORE IS Low Risk INTERVIEWED Patient;Chart Review COGNITIVE STATUS Oriented to person, place, time and location Functional Status Age Appropriate;Ambulates with medical center manager (cane, walker, etc.) LIVING SITUATION Home - Own;Family PCP VERIFIED No ADMISSION INSURANCE Medicaid Medicaid HMO- [facility] HOME HEALTH CARE PRIOR TO ADMISSION No [...] planning and needs as warranted. Katina Salas Ethylbenzene Cracking Supervisor (8:30-4:00)[facility] [employer] [id number] NoteDEPARTSCHOOLCRAFT [facility]IAL [facility] MEDIC[facility] HISTORY AND PHYSICAL EXAMINATION SERVICE DATE: 10/20/2022 PRIMARY CARE PHYSICIAN: No primary care provider on file. CHIEF COMPLAINT: right eyelid swelling and erythema HPI: Ms. Banuelos is a 57 yof with COPD, active tobacco abuse, anxiety, HTN, sent from OS [[facility]] for evaluation of right eye swelling, [...] tablet (has no administration in time range) xkmgksm-mynnpp-watbksqz (CREON) 00076 units capsule (12,000 Units Oral Given 10/20/221644) lisinopril (ZESTRIL) tablet (10 mg Oral Given 10/20/221644) hydrOXYzine (ATARAX) tablet (has no administration in [...] tobacco abuse, anxiety, HTN, sent from OSH [[facility]] admitted with right orbital cellulitis Assessment Principal Problem: Orbital cellulitis on right Active Problems: Chronic bronchitis (HCC) Anxiety Tobacco abuse HTN (hypertension) Ophthalmology and ENT is consulted - following Plan MRI orbit w/wo is ordered. CT chest w/o. Empiric abx Vancomycin and Zosyn [she had rash with penicillins as kid, denied anaphylactic react (more content not included)...[facility] [id number] History of Present illness Narrative* Jeffery Jin [...] Seen with Dr. Guerin documented in this [id number] Telephone encounter Note* Telephone Encounter - Jeffy Garner MD - 10/20/2022 5:17 AM EST I was called by [facility] regarding a transfer from [facility]. That facility is requesting transfer because [...] 13, ESR/CRP elevated. Discussed with provider at [facility], advised they shoulddiscuss case with ophthalmology as patient may benefit from ED to ED transfer rather than direct admission to medicine for earlier ophthalmology evaluation. Patient is not accepted to medicine at this time, 5:18 AM 10/20/22. Jeffy Garner MD [id number] Miscellaneous Notes* Telephone Encounter - Jeffy Garner MD - 10/20/2022 5:17 AM EST I was called by [facility] regarding a transfer from [facility]. That facility is requesting transfer because [...] 13, ESR/CRP elevated. Discussed with provider at [facility], advised they shoulddiscuss case with ophthalmology as patient may benefit from ED to ED transfer rather than direct admission to medicine for earlier ophthalmology evaluation. Patient is not accepted to medicine at this time, 5:18 AM 10/20/22. Jeffy Garner MD documented in this [id number] Discharge summary Author Mo Velasco [facility] October 20, 2022 5:55am Note Date/Time October 19, 2022 7 :10pm [facility] Medical Records Department [address] [place] [address] Emergency Department Summary 10/19/22 MR#: [id number] Acct: [id number] Name: GRACIE BANUELOS Rep #:[id number] : 1965 57 From: Tasneem Dykes MD PCP: KEN STAHLC Status:REG ER Location: ED ADDENDUM by Dr. Mo Velasco DO on 10/20/22 at 0555 Patient has been in the department waiting for bed availability at [facility]. She was a level 1 initially multiple callbacks they are unable to deliver a bed. I spoke with the patient she was okay with trying other hospitalsystems in the [place] area. Her visual acuity obtained 20/40 OD, [...] Mo Gray> Cosigner Signature (if applicable): cc: PROTECTION ENGINEER-C SOILA EASTON ~* Signed HPI History of [...] she should go to the emergency room. [facility] Medical History Abdominal pain Alcohol abuse Alcoholic [...] Anxiety 04/19/19 [History Last Taken 06/10/21 21:00] pzewdg-sqdfujeh-zvdaokd 24,000-76,000-120,000 unit capsule,delayed rel 3 ea PO [...] Allergy Hives Verified 10/19/22 18:59 hydrocodone [From Rembrandt] AdvReac Itching Verified 10/19/22 18:59 Family History [...] % (Auto) 63.4 Lymph % (Auto) 23.6 Emmons % (Auto) 7.1 Eos % (Auto) 4.4 [...] with Dr. Jurado, on-call Dr. Acosta, her vice president of compliance. He advises that if the patient had [...] pressure. We spoke with both hospitals in [place] who are not excepting transfers at this time. Patient has been discussed with [facility] and patient has been accepted as a [...] mg PO DAILY PRN PRN (Reason: Anxiety) fmxjky-tzkucaco-xckjghs 1 CAPSULE capsule 3 ea PO DAILY [...] NP-C [Primary Care Provider] - Disposition Disposition: Acute Care Hospital Discharge Location: [facility] What to do if you have Problems For any increased pain, shortness of breath, bleeding, nausea or vomiting, chestpain, or any unexpected problems, contact your Primary Care Provider. Call [facility] ([phone]) or report to the closest Emergency Room. Call 911 if necessary. 10/19/222224 <Electronically signed by Tasneem Dykes MD> Cosigner Signature (if applicable): CC: CARMEN EASTON ~ Signed [facility] Work Phone: 1(337) 834-777311-30-2022 Instructions* Patient Instructions* Soila Easton APRN.RN FACULTY - 08/27/2022 1:16 PM EST Call [facility] and ask how to safely use your portable oxygen. Start trelegy daily as prescribed by pulmonology Use your oxygen at all times at 2L Use your albuterol inhaler as prescribed for shortness of breath. documented in this encounterAultman [facility]11-30-2022 History of Present illness Narrative* Soila Easton APRN.CNP - 08/27/2022 12:53 PM EST CC: Patient presents with: Recheck: [facility] ER follow up, SOB, fevers [...] States she is unsure how to appropriately fisher sponge hooking her portable oxygen. Also does not wear her oxygen at home unless she is very short of breath. Has not been taking her trelegy, does not wear her oxygen at home. Sees [facility] andwas instructed by them to go [...] Stage 3 severe COPD by GOLD classification ([facility]) 2018 Tobacco use greater than 30 years [...] Take 1 tablet by mouth once daily. urwwjjofnpr-jbdairqfy-qhwtmvcq (TRELEGY ELLIPTA) 100-62.5-25 mcg inhalation powder DAILY urgrtv-oozjicpq-gvkmuap (CREON 24) 24,000-76,000 -120,000 unit delayed release [...] plan. Soila Easton APRN.CNP documented in this encounterAultman Alliance [facility] Hospital10-21-2022 History of Present illness Narrative* Soila Easton [...] Gracie denies regular aerobic exercise. She watches Ecast for sodium, low fat and low cholesterol [...] airways disease (HCC) Alcohol dependence in remission ([facility]) 07/10/2015 Alcohol use disorder 08/27/2017 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 pancreatitis Alcoholic hepatitis 05/18/2012 Alcoholic liver disease ([facility]) 11/16/2013 Anemia Anxiety with depression Asthma Chronic hypoxemic respiratory failure ([facility]) COPD (chronic obstructive pulmonary disease) ([facility]) 05/25/2012 DDD (degenerative disc disease), cervical 09/03/2018 [...] Stage 3 severe COPD by GOLD classification ([facility]) 2018 Tobacco use greater than 30 years [...] by mouth three times daily as needed. wpuzwgeyioo-ansdmxdvs-iaeurkxx (TRELEGY ELLIPTA) 100-62.5-25 mcg inhalation powder DAILY melatonin 10 mg TbER wfzsyf-onxsqrxy-jxfuubz (CREON 24) 24,000-76,000 -120,000 unit delayed release [...] (REMERON) 45 mg tablet Prescribed by Dr. Talamantse. multivitamin tablet Take 1 tablet by mouth [...] Patient agreeable to treatment plan. Soila Easton APRN.RN FACULTY documented in this encounterAultman Alliance Community Hospital09-28-2022 Miscellaneous Notes* Telephone Encounter - Evelyn Montgomery RN - 06/25/2022 11:21 AM EDT Patient recently on antibiotic for respiratory infection. C/o vaginal itching/irritation again now.Asking for refill of diflucan for yeast infection. Please file if okay. No need to call patient back if filed. Evelyn Montgomery RN documented in this encounterAultman Alliance [facility] Hospital09-16-2022 Miscellaneous Notes* Telephone Encounter - Janene Grimm [...] you. Janene Grimm RN documented in this encounterAultman Alliance Community Hospital08-30-2022 History of Present illness Narrative* Claudia Odonnell [...] by mouth three times daily as needed. qkkbmwtybhl-yaqsdqjhd-zbwxfhht (TRELEGY ELLIPTA) 100-62.5-25 mcg inhalation powder DAILY [...] Take 1 tablet by mouth once daily. zwabwl-wkwuekfi-xyqqyfq (CREON 24) 24,000-76,000 -120,000 unit delayed release [...] airways disease (HCC) Alcohol dependence in remission ([facility]) 07/10/2015 Alcohol use disorder 08/27/2017 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 pancreatitis [...] 05/27/22 TIME: 9:23 AM documented in this encounterAultman Alliance [facility] Hospital08-25-2022 Miscellaneous Notes* Telephone Encounter - Janene Grimm [...] you. Janene Grimm RN documented in this encounterAultman Alliance [facility] Hospital08-05-2022 History of Present illness Narrative* RT Jose Angel(R) - 05/02/2022 9:15 AM EDT Radiology Service [...] 02, 2022 9:43 AM documented in this encounterAultman Alliance Community Hospital07-22-2022 Miscellaneous Notes* Telephone Encounter - Eda Moore [...] you. Eda Moore LPN documented in this encounterAultman Alliance Community Hospital07-21-2022 Miscellaneous Notes* Telephone Encounter - Marge Perkins RN - 04/17/2022 11:28 AM EDT [facility] called and notified of providers message and instructions. She voices understanding. Marge Perkins RN * Telephone Encounter - Soila Easton APRN.CNP - 04/17/2022 11:15 AM EDT Please call [facility] and let them know Ibuprofen is discontinued. Was discussed later in appointment after prescription was sent. Only fill meloxicam at this time. Patient aware she should not take ibuprofen while on meloxicam as it was discussed in appointment. Thank you Soila Easton APRN.IGOR * Telephone Encounter - Suellen Leonard LPN - 04/17/2022 11:03 AM EDT Pharmacist Colleen from [facility] calling with med question. She received an Rx today for meloxicam & ibuprofen, pharmacist states these meds should not be taken at the same time & is asking if the directions should specify how far apart to take them? Please advise. Suellen Leonard LPN documented in this encounterAultman Alliance [facility] Hospital07-21-2022 History of Present illness Narrative* Soila Easton APRN.CNP - 04/17/2022 8:59 AM EDT CC: Patient [...] months ago. Goes to Dr Perdue at [facility], seen last fall for routine examand [...] No history of dysuria, frequency or incontinence ORTHOTIC/PROSTHETIC CLINICIAN: Negative for abnormal vaginal bleeding, abnormal vaginal discharge Skin: Negative for lesions, rash, and itching Endocrine: no weight gain, no weight loss, no cold intolerance, no heat intolerance, no polyuria, no polyphagia and no polydipsia Neurologic: No headache, weakness, numbness, tingling, dizziness, memory loss, syncope. PAST MEDICAL HISTORY Diagnosis Date Acute exacerbation of chronic obstructive airways disease (HCC) Alcohol dependence in remission ([facility]) 07/10/2015 Alcohol use disorder 08/27/2017 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 pancreatitis [...] Stage 3 severe COPD by GOLD classification ([facility]) 2018 Tobacco use greater than 30 years [...] [facility] CHOLECYSTECTOMY 06/14/2021 TUBAL LIGATION 1986 ALLERGIES Hydrocodone, Penicillins, and Valium [Diazepam] MEDICATIONS simvastatin (ZOCOR) 20 mg tablet TAKE 1 TABLET BY MOUTH AT BEDTIME hydrOXYzine pamoate (VISTARIL) 25 mg capsule TAKE 1 CAPSULE BY MOUTH AT BEDTIME Cholecalciferol, Vitamin D3, (D3-2000) 50 mcg (2,000 unit) cap Take 1 capsule by mouth once daily. hkjfsi-cdglswpl-uyrkoep (CREON 24) 24,000-76,000 -120,000 unit delayed release [...] ICD9: 577.1, ICD10: K86.0 As above - BQOTOQ-LNXIMXBV-GCPPGQT 24,000-76,000-120,000 UNIT CAPSULE,DELAYED REL - CONSULT TO [...] plan. Soila Easton APRN.IGOR documented in this encounterAultman [facility] Hospital06-27-2022 Miscellaneous Notes* Telephone Encounter - Maribeth Owen [...] you. Maribeth Owen LPN documented in this encounterAultman Alliance [facility] Hospital06-24-2022 Miscellaneous Notes* Telephone Encounter - Janene Grimm RN - 03/21/2022 4:49 PM EDT Patient has been identified by name and date of : Yes Pharmacy phones for refill(s): Pending Prescriptions Disp Refills CHOLECALCIFEROL (VITAMIN D3) 50 MCG (2,000 UNIT) CAPSULE 28 capsule 11 Sig: Take 1 capsule by mouth once daily. THUY: No YWUBPG-JCCWIFBN-AEVEBQY 24,000-76,000-120,000 UNIT CAPSULE,DELAYED REL 180 capsule 11 [...] you. Janene Grimm RN documented in this encounterAultman Alliance [facility] Hospital06-14-2022 Miscellaneous Notes* Telephone Encounter - Inge Holden APRN.CNP - 03/11/2022 3:35 PM EDT Order filed for Diflucan. Inge Holden APRN.CNP * Telephone Encounter - Tasneem Ocampo RN - 03/11/2022 3:26 PM EDT Patient has been taking antibiotic for upper respiratory infection/pnemonia for the last 7 days. Having vaginal itching. Denies discharge or odor. Requesting RX for Diflucan to be sent to [facility] pharmacy. RX pending. Has not tried OTC Monistat. No need to call patient unless RX can't be sent. Tasneem Ocampo RN documented in this encounterAultman Alliance [facility] Hospital05-27-2022 Miscellaneous Notes* Telephone Encounter - Eda Moore [...] you. Eda Moore LPN documented in this encounterAultman Alliance Community Hospital04-06-2022 Miscellaneous Notes* Telephone Encounter - Zelda Cartagena Pss - 01/01/2022 12:50 PM EDT Called and scheduled patient for 01-10-22 with Soila Cartagena Pss * Telephone Encounter - Soila Easton APRN.CNP - 12/27/2021 12:54 PM EDT Patient needs routine follow up. Thank you Soila Easton APRN.CNP documented in this encounterAultman Alliance Community Hospital04-15-2021 History of Past illness Narrative* Problem Noted Date Resolved Date History of colonic polyps 01/10/20212020 Abdominal bloating 01/10/2021 01/10/2021 Alcohol dependence in remission 07/10/2015 11/02/2018 Pancreatitis chronic 05/26/2011 08/27/2017 Acute gastritis without mention of hemorrhage 01/03/2015 Gastroesophageal reflux disease 12/26/2009 01/10/2021 documented as of this encounter (statuses as of 01/01/2022) [facility]04-[facility] History of Past illness Narrative* Problem Noted Date Resolved Date History of colonic polyps 01/10/20212020 Abdominal bloating 01/10/2021 01/10/2021 Alcohol dependence in remission 07/10/2015 11/02/2018 Pancreatitis chronic 05/26/2011 08/27/2017 Acute gastritis without mention of hemorrhage 01/03/2015 Gastroesophageal reflux disease 12/26/2009 01/10/2021 documented as of this encounter (statuses as of 02/14/2022) [facility] of Past illness Narrative* Problem Noted Date Resolved Date History of colonic polyps 01/10/20212020 Abdominal bloating 01/10/2021 01/10/2021 Alcohol dependence in remission 07/10/2015 11/02/2018 Pancreatitis chronic 05/26/2011 08/27/2017 Acute gastritis without mention of hemorrhage 01/03/2015 Gastroesophageal reflux disease 12/26/2009 01/10/2021 documented as of this encounter (statuses as of 02/21/2022) [facility] of Past illness Narrative* Problem Noted Date Resolved Date History of colonic polyps 01/10/20212020 Abdominal bloating 01/10/2021 01/10/2021 Alcohol dependence in remission 07/10/2015 11/02/2018 Pancreatitis chronic 05/26/2011 08/27/2017 Acute gastritis without mention of hemorrhage 01/03/2015 Gastroesophageal reflux disease 12/26/2009 01/10/2021 documented as of this encounter (statuses as of 03/11/2022) [address]15-2021 History of Past illness Narrative* Problem Noted Date Resolved Date History of colonic polyps 01/10/20212020 Abdominal bloating 01/10/2021 01/10/2021 Alcohol dependence in remission 07/10/2015 11/02/2018 Pancreatitis chronic 05/26/2011 08/27/2017 Acute gastritis without mention of hemorrhage 01/03/2015 Gastroesophageal reflux disease 12/26/2009 01/10/2021 documented as of this encounter (statuses as of 03/24/2022) [facility] of Past illness Narrative* Problem Noted Date Resolved Date History of colonic polyps 01/10/20212020 Abdominal bloating 01/10/2021 01/10/2021 Alcohol dependence in remission 07/10/2015 11/02/2018 Pancreatitis chronic 05/26/2011 08/27/2017 Acute gastritis without mention of hemorrhage 01/03/2015 Gastroesophageal reflux disease 12/26/2009 01/10/2021 documented as of this encounter (statuses as of 03/24/2022) [facility] of Past illness Narrative* Problem Noted Date Resolved Date History of colonic polyps 01/10/20212020 Abdominal bloating 01/10/2021 01/10/2021 Alcohol dependence in remission 07/10/2015 11/02/2018 Pancreatitis chronic 05/26/2011 08/27/2017 Acute gastritis without mention of hemorrhage 01/03/2015 Gastroesophageal reflux disease 12/26/2009 01/10/2021 documented as of this encounter (statuses as of 04/17/2022) [facility] of Past illness Narrative* Problem Noted Date Resolved Date History of colonic polyps 01/10/20212020 Abdominal bloating 01/10/2021 01/10/2021 Alcohol dependence in remission 07/10/2015 11/02/2018 Pancreatitis chronic 05/26/2011 08/27/2017 Acute gastritis without mention of hemorrhage 01/03/2015 Gastroesophageal reflux disease 12/26/2009 01/10/2021 documented as of this encounter (statuses as of 04/17/2022) [place] [address]-15-2021 History of Past illness Narrative* Problem Noted Date Resolved Date History of colonic polyps 01/10/20212020 Abdominal bloating 01/10/2021 01/10/2021 Alcohol dependence in remission 07/10/2015 11/02/2018 Pancreatitis chronic 05/26/2011 08/27/2017 Acute gastritis without mention of hemorrhage 01/03/2015 Gastroesophageal reflux disease 12/26/2009 01/10/2021 documented as of this encounter (statuses as of 04/18/2022) [facility] of Past illness Narrative* Problem Noted Date Resolved Date History of colonic polyps 01/10/20212020 Abdominal bloating 01/10/2021 01/10/2021 Alcohol dependence in remission 07/10/2015 11/02/2018 Pancreatitis chronic 05/26/2011 08/27/2017 Acute gastritis without mention of hemorrhage 01/03/2015 Gastroesophageal reflux disease 12/26/2009 01/10/2021 documented as of this encounter (statuses as of 04/18/2022) [facility] of Past illness Narrative* Problem Noted Date Resolved Date History of colonic polyps 01/10/20212020 Abdominal bloating 01/10/2021 01/10/2021 Alcohol dependence in remission 07/10/2015 11/02/2018 Pancreatitis chronic 05/26/2011 08/27/2017 Acute gastritis without mention of hemorrhage 01/03/2015 Gastroesophageal reflux disease 12/26/2009 01/10/2021 documented as of this encounter (statuses as of 05/03/2022) [facility] of Past illness Narrative* Problem Noted Date Resolved Date History of colonic polyps 01/10/20212020 Abdominal bloating 01/10/2021 01/10/2021 Alcohol dependence in remission 07/10/2015 11/02/2018 Pancreatitis chronic 05/26/2011 08/27/2017 Acute gastritis without mention of hemorrhage 01/03/2015 Gastroesophageal reflux disease 12/26/2009 01/10/2021 documented as of this encounter (statuses as of 05/16/2022) [address]21 History of Past illness Narrative* Problem Noted Date Resolved Date History of colonic polyps 01/10/20212020 Abdominal bloating 01/10/2021 01/10/2021 Alcohol dependence in remission 07/10/2015 11/02/2018 Pancreatitis chronic 05/26/2011 08/27/2017 Acute gastritis without mention of hemorrhage 01/03/2015 Gastroesophageal reflux disease 12/26/2009 01/10/2021 documented as of this encounter (statuses as of 05/22/2022) [facility] of Past illness Narrative* Problem Noted Date Resolved Date History of colonic polyps 01/10/20212020 Abdominal bloating 01/10/2021 01/10/2021 Alcohol dependence in remission 07/10/2015 11/02/2018 Pancreatitis chronic 05/26/2011 08/27/2017 Acute gastritis without mention of hemorrhage 01/03/2015 Gastroesophageal reflux disease 12/26/2009 01/10/2021 documented as of this encounter (statuses as of 05/27/2022) [facility] of Past illness Narrative* Problem Noted Date Resolved Date History of colonic polyps 01/10/20212020 Abdominal bloating 01/10/2021 01/10/2021 Alcohol dependence in remission 07/10/2015 11/02/2018 Pancreatitis chronic 05/26/2011 08/27/2017 Acute gastritis without mention of hemorrhage 01/03/2015 Gastroesophageal reflux disease 12/26/2009 01/10/2021 documented as of this encounter (statuses as of 06/13/2022) [address]21 History of Past illness Narrative* Problem Noted Date Resolved Date History of colonic polyps 01/10/20212020 Abdominal bloating 01/10/2021 01/10/2021 Alcohol dependence in remission 07/10/2015 11/02/2018 Pancreatitis chronic 05/26/2011 08/27/2017 Acute gastritis without mention of hemorrhage 01/03/2015 Gastroesophageal reflux disease 12/26/2009 01/10/2021 documented as of this encounter (statuses as of 06/25/2022) [address]21 History of Past illness Narrative* Problem Noted Date Resolved Date History of colonic polyps 01/10/20211 Abdominal bloating 01/10/2021 01/10/2021 Alcohol dependence in remission 07/10/2015 11/02/2018 Pancreatitis chronic 05/26/2011 08/27/2017 Acute gastritis without mention of hemorrhage 01/03/2015 Gastroesophageal reflux disease 12/26/2009 01/10/2021 documented as of this encounter (statuses as of 06/30/2022) [facility] of Past illness Narrative* Problem Noted Date Resolved Date History of colonic polyps 01/10/20212020 Abdominal bloating 01/10/2021 01/10/2021 Alcohol dependence in remission 07/10/2015 11/02/2018 Pancreatitis chronic 05/26/2011 08/27/2017 Acute gastritis without mention of hemorrhage 01/03/2015 Gastroesophageal reflux disease 12/26/2009 01/10/2021 documented as of this encounter (statuses as of 07/18/2022) [facility] of Past illness Narrative* Problem Noted Date Resolved Date History of colonic polyps 01/10/20212020 Abdominal bloating 01/10/2021 01/10/2021 Alcohol dependence in remission 07/10/2015 11/02/2018 Pancreatitis chronic 05/26/2011 08/27/2017 Acute gastritis without mention of hemorrhage 01/03/2015 Gastroesophageal reflux disease 12/26/2009 01/10/2021 documented as of this encounter (statuses as of 08/27/2022) [facility] of Past illness Narrative* Problem Noted Date Resolved Date History of colonic polyps 01/10/20212020 Abdominal bloating 01/10/2021 01/10/2021 Alcohol dependence in remission 07/10/2015 11/02/2018 Pancreatitis chronic 05/26/2011 08/27/2017 Acute gastritis without mention of hemorrhage 01/03/2015 Gastroesophageal reflux disease 12/26/2009 01/10/2021 documented as of this encounter (statuses as of 11/12/2022) [address]15-2021 History of Past illness Narrative* Problem Noted Date Resolved Date History of colonic polyps 01/10/20212020 Abdominal bloating 01/10/2021 01/10/2021 Alcohol dependence in remission 07/10/2015 11/02/2018 Pancreatitis chronic 05/26/2011 08/27/2017 Acute gastritis without mention of hemorrhage 01/03/2015 Gastroesophageal reflux disease 12/26/2009 01/10/2021 documented as of this encounter (statuses as of 11/12/2022) [facility]04-15-2021 History of Past illness Narrative* Problem Noted Date Resolved Date History of colonic polyps 01/10/20212020 Abdominal bloating 01/10/2021 01/10/2021 Alcohol dependence in remission 07/10/2015 11/02/2018 Pancreatitis chronic 05/26/2011 08/27/2017 Acute gastritis without mention of hemorrhage 01/03/2015 Gastroesophageal reflux disease 12/26/2009 01/10/2021 documented as of this encounter (statuses as of 11/25/2022) [facility]2021 History of Past illness Narrative* Problem Noted Date Resolved Date History of colonic polyps 01/10/20212020 Abdominal bloating 01/10/2021 01/10/2021 Alcohol dependence in remission 07/10/2015 11/02/2018 Pancreatitis chronic 05/26/2011 08/27/2017 Acute gastritis without mention of hemorrhage 01/03/2015 Gastroesophageal reflux disease 12/26/2009 01/10/2021 documented as of this encounter (statuses as of 11/26/2022) [facility]2021 History of Past illness Narrative* Problem Noted Date Resolved Date History of colonic polyps 01/10/20212020 Abdominal bloating 01/10/2021 01/10/2021 Alcohol dependence in remission 07/10/2015 11/02/2018 Pancreatitis chronic 05/26/2011 08/27/2017 Acute gastritis without mention of hemorrhage 01/03/2015 Gastroesophageal reflux disease 12/26/2009 01/10/2021 documented as of this encounter (statuses as of 11/27/2022) [facility]2021 History of Past illness Narrative* Problem Noted Date Resolved Date History of colonic polyps 01/10/20212020 Abdominal bloating 01/10/2021 01/10/2021 Alcohol dependence in remission 07/10/2015 11/02/2018 Pancreatitis chronic 05/26/2011 08/27/2017 Acute gastritis without mention of hemorrhage 01/03/2015 Gastroesophageal reflux disease 12/26/2009 01/10/2021 documented as of this encounter (statuses as of 11/27/2022) [facility]21 History of Past illness Narrative* Problem Noted Date Resolved Date History of colonic polyps 01/10/20212020 Abdominal bloating 01/10/2021 01/10/2021 Alcohol dependence in remission 07/10/2015 11/02/2018 Pancreatitis chronic 05/26/2011 08/27/2017 Acute gastritis without mention of hemorrhage 01/03/2015 Gastroesophageal reflux disease 12/26/2009 01/10/2021 documented as of this encounter (statuses as of 11/27/2022) [facility]21 History of Past illness Narrative* Problem Noted Date Resolved Date History of colonic polyps 01/10/20212020 Abdominal bloating 01/10/2021 01/10/2021 Alcohol dependence in remission 07/10/2015 11/02/2018 Pancreatitis chronic 05/26/2011 08/27/2017 Acute gastritis without mention of hemorrhage 01/03/2015 Gastroesophageal reflux disease 12/26/2009 01/10/2021 documented as of this encounter (statuses as of 11/28/2022) [facility]21 History of Past illness Narrative* Problem Noted Date Resolved Date History of colonic polyps 01/10/20212020 Abdominal bloating 01/10/2021 01/10/2021 Severe protein-calorie malnutrition 01/07/2019 12/26/2022 Alcohol dependence in remission 07/10/2015 11/02/2018 Pancreatitis chronic 05/26/2011 08/27/2017 Acute gastritis without mention of hemorrhage 01/03/2015 Gastroesophageal reflux disease 12/26/2009 01/10/2021 documented as of this encounter (statuses as of 12/31/2022) [facility] History of Past illness Narrative* Problem Noted Date Resolved Date History of colonic polyps 01/10/20212020 Abdominal bloating 01/10/2021 01/10/2021 Severe protein-calorie malnutrition 01/07/2019 12/26/2022 Alcohol dependence in remission 07/10/2015 11/02/2018 Pancreatitis chronic 05/26/2011 08/27/2017 Acute gastritis without mention of hemorrhage 01/03/2015 Gastroesophageal reflux disease 12/26/2009 01/10/2021 documented as of this encounter (statuses as of 03/13/2023) [facility] History of Past illness Narrative* Problem Noted Date Resolved Date History of colonic polyps 01/10/20212020 Abdominal bloating 01/10/2021 01/10/2021 Severe protein-calorie malnutrition 01/07/2019 12/26/2022 Alcohol dependence in remission 07/10/2015 11/02/2018 Pancreatitis chronic 05/26/2011 08/27/2017 Acute gastritis without mention of hemorrhage 01/03/2015 Gastroesophageal reflux disease 12/26/2009 01/10/2021 documented as of this encounter (statuses as of 03/24/2023) [facility]2021 History of Past illness Narrative* Problem Noted Date Diagnosed Date Resolved Date History of colonic polyps 01/10/2021 Abdominal bloating 01/10/2021 Severe protein-calorie malnutrition 01/07/2019 12/26/2022 Alcohol dependence in remission 07/10/2015 11/02/2018 Pancreatitis chronic 05/26/2011 017 Acute gastritis without mention of hemorrhage 10/03/19 11 01/03/2015 Gastroesophageal reflux disease 12/26/2009 01/10/2021 documented as of this encounter (statuses as of 04/15/2023) [facility] History of Past illness Narrative* Problem Noted Date Diagnosed Date Resolved Date History of colonic polyps 01/10/2021 Abdominal bloating 01/10/2021 Severe protein-calorie malnutrition 01/07/2019 12/26/2022 Alcohol dependence in remission 07/10/2015 11/02/2018 Pancreatitis chronic 05/26/2011 017 Acute gastritis without mention of hemorrhage 10/03/19 11 01/03/2015 Gastroesophageal reflux disease 12/26/2009 01/10/2021 documented as of this encounter (statuses as of 05/19/2023) [address]15-2021 History of Past illness Narrative* Problem Noted Date Diagnosed Date Resolved Date History of colonic polyps 01/10/2021 Abdominal bloating 01/10/2021 Severe protein-calorie malnutrition 01/07/2019 12/26/2022 Alcohol dependence in remission 07/10/2015 11/02/2018 Pancreatitis chronic 05/26/2011 017 Acute gastritis without mention of hemorrhage 10/03/19 11 01/03/2015 Gastroesophageal reflux disease 12/26/2009 01/10/2021 documented as of this encounter (statuses as of 06/08/2023) [facility]2021 History of Past illness Narrative* Problem Noted Date Diagnosed Date Resolved Date History of colonic polyps 01/10/2021 Abdominal bloating 01/10/2021 Severe protein-calorie malnutrition 01/07/2019 12/26/2022 Alcohol dependence in remission 07/10/2015 11/02/2018 Pancreatitis chronic 05/26/2011 017 Acute gastritis without mention of hemorrhage 10/03/19 11 01/03/2015 Gastroesophageal reflux disease 12/26/2009 01/10/2021 documented as of this encounter (statuses as of 06/10/2023) [facility]2021 History of Past illness Narrative* Problem Noted Date Diagnosed Date Resolved Date History of colonic polyps 01/10/2021 Abdominal bloating 01/10/2021 Severe protein-calorie malnutrition 01/07/2019 12/26/2022 Alcohol dependence in remission 07/10/2015 11/02/2018 Pancreatitis chronic 05/26/2011 017 Acute gastritis without mention of hemorrhage 10/03/19 11 01/03/2015 Gastroesophageal reflux disease 12/26/2009 01/10/2021 documented as of this encounter (statuses as of 06/12/2023) [address]15-2021 History of Past illness Narrative* Problem Noted Date Diagnosed Date Resolved Date History of colonic polyps 01/10/2021 Abdominal bloating 01/10/2021 Severe protein-calorie malnutrition 01/07/2019 12/26/2022 Alcohol dependence in remission 07/10/2015 11/02/2018 Pancreatitis chronic 05/26/2011 017 Acute gastritis without mention of hemorrhage 10/03/19 11 01/03/2015 Gastroesophageal reflux disease 12/26/2009 01/10/2021 documented as of this encounter (statuses as of 07/10/2023) [facility]21 History of Past illness Narrative* Problem Noted Date Diagnosed Date Resolved Date History of colonic polyps 01/10/2021 Abdominal bloating 01/10/2021 Severe protein-calorie malnutrition 01/07/2019 12/26/2022 Alcohol dependence in remission 07/10/2015 11/02/2018 Pancreatitis chronic 05/26/2011 017 Acute gastritis without mention of hemorrhage 10/03/19 11 01/03/2015 Gastroesophageal reflux disease 12/26/2009 01/10/2021 documented as of this encounter (statuses as of 11/04/2023) [facility] History of Past illness Narrative* Problem Noted Date Diagnosed Date Resolved Date History of colonic polyps 01/10/2021 Abdominal bloating 01/10/2021 Severe protein-calorie malnutrition 01/07/2019 12/26/2022 Alcohol dependence in remission 07/10/2015 11/02/2018 Pancreatitis chronic 05/26/2011 017 Acute gastritis without mention of hemorrhage 10/03/19 11 01/03/2015 Gastroesophageal reflux disease 12/26/2009 01/10/2021 documented as of this encounter (statuses as of 12/17/2023) [facility]21 History of Past illness Narrative* Problem Noted Date Diagnosed Date Resolved Date History of colonic polyps 01/10/2021 Abdominal bloating 01/10/2021 Severe protein-calorie malnutrition 01/07/2019 12/26/2022 Alcohol dependence in remission 07/10/2015 11/02/2018 Pancreatitis chronic 05/26/2011 017 Acute gastritis without mention of hemorrhage 10/03/19 11 01/03/2015 Gastroesophageal reflux disease 12/26/2009 01/10/2021 documented as of this encounter (statuses as of 01/07/2024) [facility] History of Past illness Narrative* Problem Noted Date Diagnosed Date Resolved Date History of colonic polyps 01/10/2021 Abdominal bloating 01/10/2021 Severe protein-calorie malnutrition 01/07/2019 12/26/2022 Alcohol dependence in remission 07/10/2015 11/02/2018 Pancreatitis chronic 05/26/2011 017 Acute gastritis without mention of hemorrhage 10/03/19 11 01/03/2015 Gastroesophageal reflux disease 12/26/2009 01/10/2021 documented as of this encounter (statuses as of 01/07/2024) [facility]2021 History of Past illness Narrative* Problem Noted Date Diagnosed Date Resolved Date History of colonic polyps 01/10/2021 Abdominal bloating 01/10/2021 Severe protein-calorie malnutrition 01/07/2019 12/26/2022 Alcohol dependence in remission 07/10/2015 11/02/2018 Pancreatitis chronic 05/26/2011 017 Acute gastritis without mention of hemorrhage 10/03/19 11 01/03/2015 Gastroesophageal reflux disease 12/26/2009 01/10/2021 documented as of this encounter (statuses as of 01/13/2024) [facility]21 History of Past illness Narrative* Problem Noted Date Diagnosed Date Resolved Date History of colonic polyps 01/10/2021 Abdominal bloating 01/10/2021 Severe protein-calorie malnutrition 01/07/2019 12/26/2022 Alcohol dependence in remission 07/10/2015 11/02/2018 Pancreatitis chronic 05/26/2011 017 Acute gastritis without mention of hemorrhage 10/03/19 11 01/03/2015 Gastroesophageal reflux disease 12/26/2009 01/10/2021 documented as of this encounter (statuses as of 01/13/2024) [facility] Jeferson [facility] Note Date/Time December 12, 2024 6:2 5pm [facility] Medical Records Department [address] [place] [address] Anesthesia Postop Eval II 12/12/241750 MR#: [id number] Acct: [id number] Name: GRACIE BANUELOS Rep #:[id number] : 1965 59 From: Jeferson Breaux MD PCP: Dr. Misbah Elkins MD Status:ADM I N Y Race: C Location: [place] [address] 3-1 Anesthesia Postop Eval I Sum Postop Eval Completion status Anesthesia document: Postop Eval 1 completed: Yes Anesthesia Postop Eval I Summary Anesthesia Postop Eval I Summary: Anesthesia Postop Eval I: Assessment Summary Airway patent Yes 12/12/24 13:08 HADOOP [email or web address] Spontaneous unlabored Yes 12/12/24 13:08 HADOOP [email or web address] respirations Mental status Awake,Calm 12/12/24 13:08 HADOOP [email or web address] nausea No 12/12/24 13:08 HADOOP [email or web address] Vomiting No 12/12/24 13:08 HADOOP [email or web address] Anesthesia Postop Eval I: Fluid Summary Crystalloid volume administer 30 12/12/24 13:08 HADOOP [email or web address] (ml) Colloids volume administered ( ml) Blood Product volume administered (ml) Total IV fluid infused 30 12/12/24 13:08 HADOOP [email or web address] Anesthesia Postop Eval I: Summary Notes Anesthesia Complication No 12/12/24 13:08 HADOOP [email or web address] Anesthesia Complication Comment: Post-operative progress note Anesthesia: Postop Eval II Evaluation Mental status: Awake and Calm Pain Level: 1 nausea: No Vomiting: No Complications Anesthesia Complication: No 12/12/241750 <Electronically signed by Jeferson carranza MD> Date _ Jeferson Breaux MD Cosigner Signature: Date CC: ~ Signed [facility] Work Phone: Discharge summary Author Dr. Bonilla [facility] November 07, 2022 12:09pm Note Date/Time November 07, 2022 12:09pm [facility] Medical Records Department [address] [place] [address] Instructions for Home/Discharge Instructions 11/07/22 1208 MR#: [id number] Acct: [id number] Name: GRACIE BANUELOS Rep #:[id number] : 1965 57 From: Anastacia Bonilla MD PCP: SOILA EASTON NP-C Status:ADM IN Discharge Instructions Diet Discharge Diet: [...] Coffman ; Dieter Harrison ; Ani Eduardo PROTECTION ENGINEER ; Courtney Iverson Instructions Patient Instructions: Acute [...] BID Referrals / Follow Up: SOILA EASTON NP-C [Primary Care Provider] - Within 2 Weeks Disposition Disposition (needs filled in before D/C Order can be placed): Home, Self Care 11/07/22 1209<Electronically signed by Anastacia Bonilla MD>Anastacia Bonilla MD CC: PROTECTION ENGINEER-C Ani Eduardo; PROTECTION ENGINEER-C SOILA EASTON; Dr. Ciarra Rsos MD; Dr. Freddie Perdue MD; Dr. Gonzalo Sebastian DO; Dr. Courtney Iverson MD; Dr. Olivier Coffman MD; Dr. Lisa Ochoa MD; Dr. Dieter Harrison MD ~ Signed [facility] Work Phone: Discharge summary Author Dr. Bonilla [facility] November 07, 2022 1:26pm Note Date/Time November 07, 2022 12:20pm [facility] Medical Records Department [address] [place] [address] Discharge Summary 11/07/22 1209 MR#: [id number] Acct: [id number] Name: GRACIE BANUELOS Rep #:[id number] : 1965 57 From: Anastacia Bonilla MD PCP: CARMEN STAHL Status:ADM IN Location: [facility] [id number] Providers Date of Admission: 11/01/22 Date of Discharge: 11/07/22 Primary Care Physician: CARMEN STAHL Consultations 11/02/22 20:18 Consult: Golf Course Manager / Pulmonary Medicine Routine Consulting Provider: Pulmonary Medicine [facility] Reason for Consult: respiratory failure. COPD EMERGENT Consult: No MD Notified: Yes Date Notified: 11/02/22 Time Notified: [...] 0.5 inch RIGHT EYE Q6H antibiotic 11/01/22 [id number] 24,000-76,000-120,000 unit capsule,delayed rel (Creon) 1cap PO [...] note, patient had recently been discharged from [facility] after she was transferred there from [facility] for acute ophthalmology evaluation due to right [...] Neut % (Auto) 59.2, Lymph % (Auto)19.9, Emmons % (Auto) 13.8 H, Eos % (Auto) 4.1, Baso % (Auto) 0.4, Absolute Neuts (auto) 8.0 H, Absolute Lymphs (auto) 2.70, Nucleated RBC % 0, Differential Comment SCANNED, Diff Path Review May foll 11/07/22 05:40: Sodium 141, Potassium 3.0 [...] SOILA EASTON Consulting Providers: Ciarra Ross ; Lias Ochoa ; Freddie Perdue ; Gonzalo Sebastian ; Olivier Coffman ; Dieter Harrison ; Ani Eduardo PROTECTION ENGINEER ; Courtney Iverson Instructions Patient Instructions: Acute [...] tab PO BID Referrals / Follow Up: Misbah Elkins MD [Med Staff - Registered Occupational Therapist] - 11/11/22 4:00 pm Disposition Disposition (needs filled in before D/C Order can be placed): Home, Self Care Charges/Coding Visit Charges Inpatient E&M: 40465 Disch Hosp >30min 11/07/22 1326 <Electronically signed by Anastacia Bonilla MD> Cosigner Signature (if applicable): CC: PROTECTION ENGINEER-C SOILA EASTON; Dr. Anastacia Bonilla MD~ Signed [facility] Work Phone: Evaluation note* Diagnosis Essential hypertension, benign [facility] Diagnosis MICKEY (generalized anxiety disorder) Generalized anxiety disorder Hyperlipidemia, unspecified hyperlipidemia type [facility]* Diagnosis Onset Date Resolution Status Chronic respiratory failure with hypoxia chronic Smoking greater than 30 pack years chronic Stage 3 severe COPD by GOLD classification [facility] Work Phone: Evaluation note* Diagnosis Vitamin D deficiency Unspecified vitamin D deficiency 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 chronic pancreatitis (HCC) Chronic pancreatitis [facility] Diagnosis Hyperlipidemia, unspecified hyperlipidemia type MICKEY (generalized anxiety disorder) Generalized anxiety disorder [facility]* Diagnosis Essential hypertension, benign- Primary Hyperlipidemia, unspecified hyperlipidemia type Chronic fatigue Other malaise and fatigue Alcoholic hepatitis without ascites Acute alcoholic hepatitis 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 chronic pancreatitis (HCC) Chronic pancreatitis Iron deficiency Iron deficiency anemia, unspecified Vitamin D deficiency Unspecified vitamin D deficiency MICKEY (generalized anxiety disorder) Generalized anxiety disorder Reactive depression Dysthymic disorder [facility] Diagnosis Vitamin D deficiency Unspecified vitamin D deficiency [facility]* Diagnosis 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 chronic pancreatitis (HCC) Chronic pancreatitis Alcoholic hepatitis without ascites Acute alcoholic hepatitis [facility]* Diagnosis 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 chronic pancreatitis (HCC) Chronic pancreatitis Alcoholic hepatitis without ascites Acute alcoholic hepatitis [facility] noteNo assessment information availableWHenry [facility] Work Phone: Evaluation note* Diagnosis Encounter for screening mammogram for breast cancer [facility]* Diagnosis Essential hypertension, benign- Primary Multiple joint pain Pain in joint, multiple sites 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 chronic pancreatitis (HCC) Chronic pancreatitis Chronic obstructive pulmonary disease, unspecified COPD type (HCC) Right otitis media, unspecified otitis media type Need for influenza vaccination Need for prophylactic vaccination and inoculation against influenza [facility]* Diagnosis Chronic obstructive pulmonary disease, unspecified COPD type (HCC)- Primary [facility]* Diagnosis Onset Date Resolution Status Chronic respiratory failure with hypoxia chronic Stage 3 severe COPD by GOLD classification [facility] Work Phone: Evaluation note* Diagnosis Inflammation [...] rash on her back, neck, and [facility] Inflammation of orbital region- Primary Unspecified chronic inflammation of orbit [facility] Diagnosis Onset Date Resolution Status Chronic respiratory failure with hypoxia chronic Stage 3 severe COPD by GOLD classification chronic Acute hyponatremia acute Acute kidney injury acute Diarrhea acute Nausea & vomiting acute Stage 3 severe COPD by GOLD classification [facility] Work Phone: Evaluation note* Diagnosis CHUY (acute kidney injury) (HCC)- Primary Acute kidney failure, unspecified Chronic obstructive pulmonary disease, unspecified COPD type (HCC) Alcohol use disorder, moderate, dependence (HCC) Essential hypertension, benign Hyperlipidemia, unspecified hyperlipidemia type Tobacco use disorder Reactive depression Dysthymic disorder Moderate episode of recurrent major depressive disorder (HCC) 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 chronic pancreatitis (HCC) Chronic pancreatitis [facility]* Diagnosis Numbness and tingling of both lower extremities- Primary CHUY (acute kidney injury) (HCC) Acute kidney failure, unspecified Essential hypertension, benign Hyperlipidemia, unspecified hyperlipidemia type [facility]* Diagnosis Neuropathy- Primary Mononeuritis of unspecified site Numbness and tingling of both lower extremities Numbness and tingling of both feet Claustrophobia Other isolated or specific phobias documented in this encounter [facility] note* Diagnosis CHUY (acute kidney injury) (HCC)- Primary Acute kidney failure, unspecified documented in this encounter [facility] note* Diagnosis Cellulitis of right orbital region- Primary Orbital cellulitis CHUY (acute kidney injury) (HCC) Acute kidney failure, unspecified Uncontrolled hypertension Unspecified essential hypertension Tobacco abuse, in remission Personal history of tobacco use, presenting hazards to health Lung mass Swelling, mass, or lump in chest documented in this encounter [facility] note* Diagnosis Prediabetes- Primary Other abnormal glucose documented in this encounter [facility] note* Diagnosis Thrush Candidiasis of mouth documented in this encounter [facility] note* Diagnosis Hyperlipidemia Other and unspecified hyperlipidemia documented in this encounter [facility] note* Diagnosis Hyperlipidemia, unspecified hyperlipidemia type documented in this encounter [facility] note* Diagnosis Arthralgia of right temporomandibular joint- Primary Arthralgia of temporomandibular joint Insomnia, unspecified type Nausea Nausea alone Alcohol use disorder, moderate, dependence (HCC) documented in this encounter [facility] note* Diagnosis Encounter for screening mammogram for breast cancer [facility] Diagnosis Vitamin D deficiency Unspecified vitamin D deficiency documented in this encounter [facility] note* Diagnosis Onset Date Resolution Status Asthma chronic Chronic respiratory failure with hypoxia chronic COPD (chronic obstructive pulmonary disease) chronic Smoking greater than 30 pack years chronic [facility] Work Phone: Evaluation note* Diagnosis Tachycardia- Primary Tachycardia, unspecified 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 chronic pancreatitis (HCC) Chronic pancreatitis Hyperlipidemia, unspecified hyperlipidemia type Insomnia, unspecified type Vitamin D deficiency Unspecified vitamin D deficiency Chronic obstructive pulmonary disease, unspecified COPD type (HCC) Prediabetes Other abnormal glucose documented in this encounter [facility] note* Diagnosis Onset Date Resolution Status Pleurisy acute Pneumonia acute Acute on chronic hypoxic respiratory failure chronic COPD (chronic obstructive pulmonary disease) chronic [facility] Work Phone: Evaluation note* Diagnosis Essential hypertension, benign- Primary Hyponatremia Hyposmolality and/or hyponatremia Leukocytosis, unspecified type COPD with exacerbation (HCC) Obstructive chronic bronchitis with exacerbation Pneumonia due to infectious organism, unspecified laterality, unspecified part of lung documented in this encounter [facility] note* Diagnosis Onset Date Resolution Status Pleurisy acute COPD (chronic obstructive pulmonary disease) [facility] Work Phone: Evaluation note* Diagnosis Chronic obstructive pulmonary disease, unspecified COPD type (HCC) documented in this encounter [facility] note* Diagnosis Nausea Nausea alone documented in this encounter [facility] note* Diagnosis Pneumonia due to infectious organism, unspecified laterality, unspecified part of lung- Primary Acute right ankle pain documented in this encounter [facility] note* Diagnosis Hyperlipidemia, unspecified hyperlipidemia type Vitamin D deficiency Unspecified vitamin D deficiency Chronic obstructive pulmonary disease, unspecified COPD type (HCC) documented in this encounter [facility] note* Diagnosis Chronic obstructive pulmonary disease, unspecified COPD type (HCC) documented in this encounter [facility] note* Diagnosis Chronic obstructive pulmonary disease, unspecified COPD type (HCC) documented in this encounter [facility] note* Diagnosis Chronic obstructive pulmonary disease, unspecified COPD type (HCC) documented in this encounter [facility] note* Diagnosis Encounter for screening mammogram for breast cancer documented in this encounter [facility] note* Diagnosis Anxiety- Primary Anxiety state, unspecified 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 chronic pancreatitis (HCC) Chronic pancreatitis Chronic obstructive pulmonary disease, unspecified COPD type (HCC) Essential hypertension Unspecified essential hypertension documented in this encounter [facility] note* Diagnosis Pneumonia due to infectious organism, unspecified laterality, unspecified part of lung Acute right ankle pain documented in this encounter [facility] note* Diagnosis Chronic obstructive pulmonary disease, unspecified COPD type (HCC) documented in this encounter [facility] note* Diagnosis Numbness and tingling of both lower extremities documented in this encounter [facility] note* Diagnosis Chronic obstructive pulmonary disease, unspecified COPD type (HCC) documented in this encounter [facility] note* Diagnosis Chronic obstructive pulmonary disease, unspecified COPD type (HCC) documented in this encounter [facility] note* Diagnosis Anxiety- Primary Anxiety state, unspecified 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 chronic pancreatitis (HCC) Chronic pancreatitis Nausea Nausea alone Encounter for immunization Need for other specified prophylactic vaccination against single bacterial disease Insomnia, unspecified type Leukocytosis, unspecified type documented in this encounter [facility] note* Diagnosis Shortness of breath- Primary Chronic obstructive pulmonary disease with acute exacerbation (HCC) Obstructive chronic bronchitis with exacerbation Upper abdominal pain Abdominal pain, other specified site Nausea Nausea alone Urinary incontinence, unspecified type Urinary frequency Elevated glucose Other abnormal glucose Tobacco use disorder Pulmonary emphysema, unspecified emphysema type (HCC) [facility] Diagnosis Shortness of breath Chronic obstructive pulmonary disease with acute exacerbation (HCC) Obstructive chronic bronchitis with exacerbation Tobacco use disorder Pulmonary emphysema, unspecified emphysema type (HCC) [facility] Diagnosis Chronic obstructive pulmonary disease, unspecified COPD type (HCC)- Primary Generalized abdominal tenderness without rebound tenderness Upper abdominal pain Abdominal pain, other specified site Elevated lipase Other nonspecific abnormal serum enzyme levels Nausea Nausea alone Alcoholic hepatitis without ascites Acute alcoholic hepatitis Alcohol use disorder, moderate, dependence (HCC) Acute pancreatitis, unspecified complication status, unspecified pancreatitis type [facility] Diagnosis Chronic obstructive pulmonary disease, unspecified COPD type (HCC) [facility]* Diagnosis Alcoholic hepatitis without ascites Acute alcoholic hepatitis Acute pancreatitis, unspecified complication status, unspecified pancreatitis type Upper abdominal pain Abdominal pain, other specified site Nausea Nausea alone Elevated lipase Other nonspecific abnormal serum enzyme levels Generalized abdominal tenderness without rebound tenderness [facility] Diagnosis Vitamin D deficiency Unspecified vitamin D deficiency [facility] Diagnosis 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 chronic pancreatitis (HCC)- Primary Chronic pancreatitis Chronic recurrent pancreatitis (HCC) Chronic pancreatitis Chronic RUQ pain Abdominal pain, right upper quadrant Abdominal bloating Flatulence, eructation, and gas pain Nausea Nausea alone Gastroesophageal reflux disease without esophagitis Esophageal reflux [facility] Diagnosis Cough with sputum- Primary Cough Essential hypertension Unspecified essential hypertension COPD with exacerbation (HCC) Obstructive chronic bronchitis with exacerbation COPD with exacerbation (HCC) Obstructive chronic bronchitis with exacerbation [facility] Diagnosis COPD with exacerbation (HCC) Obstructive chronic bronchitis with exacerbation [facility] Diagnosis Other chronic pancreatitis (HCC)- Primary [facility]* Diagnosis Chronic recurrent pancreatitis (HCC) Chronic pancreatitis 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 chronic pancreatitis (HCC) Chronic pancreatitis Chronic RUQ pain Abdominal pain, right upper quadrant [facility]* Diagnosis Hyperlipidemia Other and unspecified hyperlipidemia [facility] Diagnosis Hospital discharge follow-up- Primary Other follow-up examination Chronic recurrent pancreatitis (HCC) Chronic pancreatitis Chronic obstructive pulmonary disease, unspecified COPD type (HCC) Dysphagia, unspecified type Essential hypertension, benign Tobacco use disorder Smoker Tobacco use disorder documented in this encounter [facility] note* Diagnosis Chronic recurrent pancreatitis (HCC) Chronic pancreatitis Chronic obstructive pulmonary disease, unspecified COPD type (HCC) Hospital discharge follow-up Other follow-up examination documented in this encounter [facility] note* Diagnosis Onset Date Resolution Status Admit Date Acute hypoxic respiratory failure acute December 04, 2024 6:03pm Chronic pancreatitis chronic Lino h 2024 6:03pm COPD with acute exacerbation chronic December 04, 2024 6:03pm [facility] Work Phone: Evaluation note* Diagnosis Chronic obstructive pulmonary disease with acute exacerbation (HCC) Obstructive chronic bronchitis with exacerbation documented in this encounter [facility] note* Diagnosis Gout, unspecified cause, unspecified chronicity, unspecified site- Primary Calculus of pancreatic duct (HCC) Other specified disease of pancreas Chronic recurrent pancreatitis (HCC) Chronic pancreatitis Chronic obstructive pulmonary disease, unspecified COPD type (HCC) Pulmonary emphysema, unspecified emphysema type (HCC) Tobacco use disorder [facility]* Diagnosis Nausea Nausea alone documented in this encounter [facility] note* Diagnosis Hyperlipidemia, unspecified hyperlipidemia type documented in this encounter [facility] note* Diagnosis Other chronic pancreatitis (HCC) [facility] Diagnosis Chronic recurrent pancreatitis (HCC)- Primary Chronic pancreatitis documented in this encounter [facility] note* Diagnosis Hospital discharge follow-up- Primary Other follow-up examination Acute respiratory failure with hypoxia (HCC) Acute respiratory failure Chronic recurrent pancreatitis (HCC) Chronic pancreatitis Norovirus Enteritis due to Kiefer virus Pneumonia of both lungs due to infectious organism, unspecified part of lung Presence of pancreatic duct stent Alcoholic hepatitis without ascites (HCC) Acute alcoholic hepatitis Alcohol use disorder, moderate, dependence (HCC) [facility] Author Carin Meraz [facility] January 02, 2024 10:42pm Note Date/Time January 02, 2024 10:1 0pm [facility] Medical Records Department [address] [place] [address] H&P Exam - Hospitalist 01/02/248 MR#: [id number] Acct: [id number] Name: GRACIE BANUELOS Rep #:[id number] : 1965 58 From: Carin Meraz MD PCP: nAat Easton, [employer]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 HPI Narrative The patient is a 58 y/o F w/ PMHx: EtOH abuse, Tobacco use, COPD/Asthma w/ Chronic Hypoxic Respiratory Failure (PRN), HTN, HLD, Chronic anemia, Anxiety andDepression, Chronic pancreatitis associated with EtOH abuse who presents to the [facility] ED on 01/02/24 with history [...] 1, Rocephin 1 g IV x 1. [facility] Medical History Anemia Anxiety and depression Arthritis [...] DAILY BP 11/01/22 [History Last Taken Unknown] kqreyl-daageroc-lbabrev 24,000-76,000-120,000 unit capsule,delayed rel (Creon) 1cap PO [...] Allergy Other Verified 01/02/24 18:59 hydrocodone [From Rembrandt] AdvReac Itching Verified 01/02/24 18:59 Family History [...] 81.7 H, Lymph % (Auto) 9.6 L, Emmons % (Auto) 6.9, Eos % (Auto) 0.6, [...] with EtOH abuse who presents to the [facility] ED on 01/02/24 with history [...] Patient does not have healthcare power of employment law attorney or living will in place but [...] Time: 16minutes. Charges/Coding Visit Charges Inpatient E&M: 28640 Init Hosp L3 Procedures Hospitalists Procedures: 99978 Advncd Care Plan 30 Min 01/02/24 2242 <Electronically signed by Carin Meraz MD> Cosigner Signature (if applicable): CC: CARMEN Coppola Older; Dr. Carin Meraz MD~ Signed [facility] Work Phone: History and physical note Author Pako Fernández [facility] Note Date/Time March 13, 2025 11:2 8pm [facility] Medical Records Department [address] [place], [place] [address] [address] History & Physical Exam 03/13/25 2320 MR#: [id number] Acct: [id number] Name: GRACIE BANUELOS Rep #:[id number] : 1965 59 From: Pako Fernández MD PCP: Dr. Misbah Elkins MD Status:REG E R Location: ED HPI - General General Date of Admission: 03/13/25 Date of Service: 03/13/25 Chief Complaint: Abdominal pain HPI Narrative GRACIE BANUELOS, is a 59 F who presents to the emergency room with chief complaint of abdominal pain. Patient has significant past medical history of hypertension, hyperlipidemia, COPD on 5 L nasal cannula at baseline, chronic pancreatitis with history of cholecystectomy and appendectomy. Patient states she has chronic pancreatitis secondary to alcohol abuse and has been sober for the past several months. She was recently admitted to [facility] and treated by GI specialist Dr. Portillo. She had a surgery performed for her pancreatitis and a stent was placed this past Thursday. Patient states she has had worsening epigastric abdominal pain since discharge on Thursday. She denies fever, chills, shortness of breath, chest pain, diarrhea constipation or dysuria. Patient has been accepted to [facility] for transferfrom the emergency room, however, a bed is not available this evening and patient will be admitted temporarily in our facility while pending transfer to tertiary care facility to address pancreatic stent and acute pancreatitis. [facility] Medical History Stenosis of left subclavian [...] 30 days #60 tabs 01/05/24 Unknown Rx lisinopril 10 mg tablet 10 mg PO [...] mg PO TID 12/23/24 Unk nown History meloxicam 7.5 mg tablet 7.5 mg PO [...] 3 days #12 01/01/25 Unknown Rx tabs ipratropium 0.5 mg-albuterol 3 mg 3 ml inhalation Q4H shortness of 01/04/25 Unknown Rx (2.5 mg base)/3 mL nebulization breath or wheezing #36 0 mL soln prednisone 20 mg tablet 40 mg (2 x 20 mg) PO DAILY 5 days 01/27/25 Unknown Rx #10 tabs gabapentin 300 mg capsule 300 mg PO BID 02/08/25 Unkno wn History ondansetron 4 mg disintegrating 4 mg PO Q8H PRN PRN Na usea #12 tabs 02/26/25 Unknown Rx tablet tramadol 50 mg tablet 50 mg PO Q6H PRN PRN Pain 3 days 02/26/25 Unknown Rx #12 tabs albuterol sulfate 2.5 mg/3 mL mg 03/13/25 Unknown Hist ory (0.083 %) solution for nebulization amlodipine 5 mg tablet 5 mg PO DAILY 03/13/25 Unkno wn History pantoprazole 40 mg tablet,delayed 40 mg PO DAILY 03/13 Unknown History release simvastatin 20 mg tablet 20 mg PO QHS 03/13/25 Unknow n History Allergy/AdvReac Type Severity Reaction Status Date / Time clindamycin Allergy Intermediate Hives Verified 02/26/25 13:57 Penicillins Allergy Hives Verified 02/26/25 13:57 sulfamethoxazole (From Allergy Other Verified 02/26/25 13:57 Bactrim) trimethoprim (From Bactrim) Allergy Other Verified 02/26/25 13:57 hydrocodone (From Rembrandt) AdvReac Itching Verified 02/26/25 13:57 Family History Mother Diabetes Hypertension Heart disease [...] type: does not use caffeine: Yes ROS Constitutional Constitutional: Denies chills or fever(s) Eyes Eyes: Denies blurry vision ENT HEENT: Denies abnormal hearing Cardiovascular Cardiovascular: Denies chest pain Respiratory/Chest Respiratory/Chest: Reports shortness of breath with exertion Gastrointestinal Gastrointestinal: Reports abdominal pain Genitourinary Genitourinary: Denies dysuria Musculoskeletal Musculoskeletal: Denies back pain Integumentary Integumentary: Denies dry skin Neurologic Neurologic: Denies abnormal gait Psychiatric Psychiatric: Denies depression Vital Signs Vital Signs Vital Signs: 03/13/25 11:02 03/13/25 13:00 03/13/25 14:00 Temperature 98.3 F 98.4 F 98.1 F Temperature Source Oral Oral Oral Pulse Rate 124 H 97 109 H Respiratory Rate 20 H 15 19 H Blood Pressure 103/72 130/65 H 162/77 H Blood Pressure Mean 82 86 105 Pulse Ox 91 100 100 Oxygen Delivery Method Nasal Cannula Room Air Nasal Cannula Oxygen Flow Rate (L/min) 5 03/13/25 15:00 03/13/25 16:00 03/13/25 17:00 Temperature 98.6 F 98.2 F 97.9 F Temperature Source Oral Oral Oral Pulse Rate 104 H 94 93 Respiratory Rate 22 H 17 19 H Blood Pressure 112/61 135/58 H 105/59 L Blood Pressure Mean 78 83 74 Pulse Ox 94 95 96 Oxygen Delivery Method Nasal Cannula Nasal Cannula Nasal Cannula Oxygen Flow Rate (L/min) 03/13/25 19:00 03/13/25 20:30 03/13/25 21:00 Temperature Temperature Source Pulse Rate 70 80 113 H Respiratory Rate 20 H 15 22 H Blood Pressure 164/60 H 116/67 Blood Pressure Mean 94 83 Pulse Ox 96 89 Oxygen Delivery Method Room Air Nasal Cannula Oxygen Flow Rate (L/min) 6 03/13/25 21:29 03/13/25 23:00 Temperature Temperature Source Pulse Rate 111 H 107 H Respiratory Rate 20 H 17 Blood Pressure 116/67 125/60 H Blood Pressure Mean 83 81 Pulse Ox 91 87 Oxygen Delivery Method High Flow Nasal Cannula Oxygen Flow Rate (L/min) 8 8 Weight Weight: 131 lb 11.2 oz Body Mass Index (BMI) 23.3 Physical Exam Const alert General Appearance: cooperative and well developed HEENT normocephalic Eyes PERRL Neck no lymphadenopathy Lymph Lymphatic: no lymphadenopathy noted Resp normal respiratory effort, normal air movement and clear to auscultation bilaterally Cardio regular rate, regular rhythm, S1 normal heart sound and S2 normal heart sound GI Inspection: abdominal distention Palpation: tender epigastric Extremity normal capillary refill Skin General Skin Exam: no breakdown Neuro no focal motor deficits and no sensory deficits noted Psych cooperative and affect normal Results Lab / Micro Data 03/13/25 12:16 03/13/25 12:16 Labs: Laboratory Results - last 24 hr 03/13/25 12:16: WBC 29.2 H, RBC 4.17 L, Hgb 11.2 L, Hct 35.9 L, MCV 86.1, MCH 26.9 L, MCHC 31.2 L, RDW Std Deviation 46.1 H, RDW Coeff of Min 14.7 H, Plt Count 277, MPV 10.8, Immature Gran % (Auto) 1.200 H, Neut % (Auto) 83.5 H, Lymph% (Auto) 6.3 L, Emmons % (Auto) 8.1, Eos % (Auto) 0.5, Baso % (Auto) 0.4, AbsoluteNeuts (auto) 24.3 H, Absolute Lymphs (auto) 1.85, Nucleated RBC % 0, Differential Comment SCANNED, Sodium 134, Potassium 3.6, Chloride 92 L, Carbon Dioxide 28.0, Anion Gap 14, BUN 14, Creatinine 0.84, Estim Creat Clear Calc 58.18, Est GFR (MDRD) Non-Af 79, BUN/Creatinine Ratio 16.9, Glucose 100 H, Calcium 9.5, Total Bilirubin 0.49, Direct Bilirubin 0.29, AST 21, ALT 38 H, Alkaline Phosphatase 149 H, Total Protein 7.0, Albumin 3.8, Globulin 3.2, Lipase 378 H 03/13/25 12:32: Lactic Acid < 1.0 03/13/25 12:58: Ethyl Alcohol < 10.1 03/13/25 14:11: Urine Color Straw, Urine Clarity Clear, Urine pH 7.0, Ur Specific [place] 1.005, Urine Protein 30 H, Urine Glucose (UA) Normal, Urine Ketones Negative, Urine Occult Blood Negative, Urine Nitrite Negative, Urine Bilirubin Negative, Urine Urobilinogen Normal, Ur Leukocyte Esterase 100 H, Urine RBC 0-5 SEEN, Urine WBC 5-10 SEEN, Ur Squamous Epith Cells 0-5 SEEN, UrineBacteria 0 SEEN, Urine Mucus 0 SEEN Imaging Radiology Impression Abdomen/Pelvis CT 03/13/25 12:22 IMPRESSION: There is a stent in the body of the pancreas extending into the head and 2nd-3rdportion of the duodenum, unchanged. There is peripancreatic inflammation at the body and head, extending into the mesenteric root and right and left pericolic gutter, new compared to the prior. There is no organized or drainable collection. Pancreaticcalcifications are present which are consistent with chronic pancreatitis, predominantly in the head, similar to the prior. There is a 0.6 cm solid pulmonary nodule in the right lung base, image 6/118, unchanged from the February 26, 2025 exam, new compared to the November 04, [address] correlation is recommended. Critical results were discussed with Dr. Rand by Dr. Grover at the time of dictation. Reading Location: [facility] Chest X-Ray 03/13/25 12:40 IMPRESSION: No evidence of acute cardiopulmonary pathology. Reading Location: [id number] Assessment & Plan Assessment/Plan (1) Smoking greater than 30 pack years: (2) COPD (chronic obstructive pulmonary disease): QUALIFIERS: COPD type: emphysema Emphysema type: centrilobular Qualified Code(s): J43.2 - Centrilobular emphysema (3) Abdominal pain: (4) Chronic pancreatitis: QUALIFIERS: Pancreatitis type: alcohol induced Qualified Code(s):K86.0 - 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 chronic pancreatitis PLAN: Plan 1. Acute on chronic pancreatitis?admit patient temporarily to our facility pending transfer to [facility], make n.p.o., IV normal saline at a rate of 125 cc/h, morphine 2 to 4 mg every 3 hours as needed pain. Transfer patient as soon as bed is available, repeat CBC, CMP, lipase in a.m. 2. Leukocytosis with left shift?patient is currently afebrile will monitor as she has just had a stent placed this past Thursday and suspect some of this may bereactive change to that procedure 3. COPD continue routine inhalation medications and 5 L nasal cannula which shehas been on routinely 4. DVT prophylaxis?low molecular weight heparin 03/13/251 <Electronically signed by Pako Fernández MD> Cosigner Signature (if applicable): CC: Dr. Misbah Elkins MD; Dr. Pako Fernández MD~ Signed [facility] Work Phone: Hospital Discharge instructions* Activity:activity as tolerated. * Labs 1 (Modify Template):Lab Test(s): RFPDate To Be Drawn: 2/2/23Call Results To: Soila Easton, RN FACULTY or Fax Results To: [phone]: PCP consider monitoring improvement of CHUY upon recent hospital admission * Oxygen:Administer oxygen at 2 liters/min via nasal cannula to maintain SpO2 % of 88-92 with activity. * Additional Orders:Additional Instructions: Dear Ms. Banuelos,You presented to us as transfer from [facility] for a possible biopsy of the [...] with Primary Care ProviderScheduled Date/Time: 15-Dec-2022 16:00Location: [address] [place] [address], [address] [address] faxPhone Number: [phone]: Please bring your insurance card, photo id, a list of medication in the original bottle, any co-pays you may have, and the discharge summary * Follow Up Appointment 2:Physician/Dept/Service: Ophthalmology: Dr Marsheduled Date/Time: 03-Dec-2022 15:30Location: [facility] [address] , [address] [place] [address]Icncm Number: [phone]: Please bring your insurance card, photo id, a list of medication in the original bottle, any co-pays you may have, and the discharge summary * Follow Up Appointment 3:Physician/Dept/Service: Soila Easton CNPLocation: [phone] [facility] [place] [address]Oqrig [facility] Additional Instructions Take medications as prescribed. Follow-up with your doctor.[facility] Work Phone: Hospital Discharge instructions Additional Instructions Follow-up with pain management on January 05 as scheduled. Quit smoking. Return with fever, increased pain, new or worsening symptoms.[facility] Work Phone: Hospital Discharge instructions Additional Instructions Your blood work and CT are normal but I this is a flareup of your chronic pancreatitis. I prescribed more Zofran. Use tramadol as needed for breakthrough pain. Follow-up with your GI specialist.[facility] Work Phone: Reason for referral (narrative)* Diagnostic Procedure Only (Routine) - Authorized Specialty Diagnoses / Procedures Referred By Travis melendez Referred To Contact US IMAGING Diagnoses 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 chronic pancreatitis (HCC) Alcoholic hepatitis without ascites Procedures US ABD RT UPPER QUADRANT US ABDOMINAL REAL TIME W/IMAGE LIMITED Soila Easton APRN.RN FACULTY [address] [place] [address] Us Imaging Referral ID Status Reason Start Date Expiration Date Visits Requested Visits Authorized [id number] Authorized Auto-Generat ed Referral 04/17/2022 05/17/2023 1 1 * Consult, Test, Treat (Routine) - Authorized Specialty Diagnoses / Procedures Referred By Contkar t Referred To Contact Gastroenterology Diagnoses 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 chronic pancreatitis (HCC) Alcoholic hepatitis without ascites Procedures CONSULT TO GASTROENTEROLOGY OFFICE/OUTPATIENT NEW HIGH MDM 60-74 MINUTES Soila Easton APRN.CNP [address] [place] [address] Referral ID Status Reason Start Date Expiration Date Visits Requested Visits Authorized [id number] Authorized PCP Requested Referral 04/17/2022 04/17/2023 1 1 [facility] for referral (narrative)* Diagnostic Procedure Only (Routine) - Closed Specialty Diagnoses / Procedures Referred By Travis melendez Referred To Contact US IMAGING Diagnoses 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 chronic pancreatitis (HCC) Alcoholic hepatitis without ascites Procedures US ABD RT UPPER QUADRANT US ABDOMINAL REAL TIME W/IMAGE LIMITED Soila Easton APRN.CNP [address] [place] [address] Us Imaging Referral ID Status Reason Start Date Expiration Date V isits Requested Visits Authorized [id number] Closed Auto-Generate d Referral 04/17/2022 05/17/2023 1 1 [facility] for referral (narrative)* Diagnostic Procedure Only (Routine) - Pending Review Specialty Diagnoses / Procedures Referred By Travis melendez Referred To Contact BR IMAGING Diagnoses Encounter for screening mammogram for breast cancer Procedures SIMI SCREENING SCREENING MAMMOGRAPHY BI 2-VIEW BREAST INC CAD Misbah Elkins MD [address] [place] [address] [facility] [address] [place] [id number] Referral ID Status Reason Start Date Expiration Date Visits Requested Visits Authorized [id number] Pending Review Auto-Generat ed Referral 06/25/2022 07/25/2023 1 1 [facility] for referral (narrative)* Outpatient Procedure (Routine) - Authorized Specialty Diagnoses / Procedures Referred By Travis t Referred To Contact [facility] Diagnoses Numbness and tingling of both lower extremities Neuropathy Numbness and tingling of both feet Procedures EMG(NEURO/NI) NERVE CONDUCTION STUDIES 9-10 STUDIES Mariluz Verduzco PA-C [address] [place] [address] [facility] [place] [address] [place] [id number] Referral ID Status Reason Start Date Expiration Date Visits Requested Visits Authorized [id number] Authorized Auto-Generat ed Referral 11/26/2022 09/27/2023 1 1 [facility] for referral (narrative)* Diagnostic Procedure Only (Routine) - Pending Review Specialty Diagnoses / Procedures Referred By Travis melendez Referred To Contact [facility] Diagnoses Encounter for screening mammogram for breast cancer Procedures SIMI SCREENING SCREENING MAMMOGRAPHY BI 2-VIEW BREAST INC Misbah Chanel MD [address] [place] [address] [facility] [address] [place] [address] Referral ID Status Reason Start Date Expiration Date Visits Requested Visits Authorized [id number] Pending Review Auto-Generat ed Referral 06/03/2023 07/02/2024 1 1 [facility] for referral (narrative)* Diagnostic Procedure Only (Routine) - New Request Specialty Diagnoses / Procedures Referred By Travis melendez Referred To Contact [facility] Diagnoses Encounter for screening mammogram for breast cancer Procedures SIMI SCREENING W CYNTHIA SCREENING DIGITAL BREAST TOMOSYNTHESIS BI SCREENING MAMMOGRAPHY BI 2-VIEW BREAST INC Misbah Chanel MD [address] [place] [address] [facility] [address] [place] [address] Referral ID Status Reason Start Date Expiration Date Visits Requested Visits Authorized [id number] New Request Auto-Generat ed Referral 05/04/2024 06/03/2025 1 1 [facility] for referral (narrative)* Diagnostic Procedure Only (Routine) - Closed Specialty Diagnoses / Procedures Referred By Travis melendez Referred To Contact XR IMAGING Diagnoses Numbness and tingling of both lower extremities Procedures XR LUMBAR GENERAL 3V AP/LAT/L5-S1 RADEX SPINE LUMBOSACRAL 2/3 VIEWS Misbah Elkins MD [address] [place] [address] [place] [address] Referral ID Status Reason Start Date Expiration Date V isits Requested Visits Authorized [id number] Closed Auto-Generate d Referral 11/25/2022 12/25/2023 1 1 [facility] for referral (narrative)* Diagnostic Procedure Only (Routine) - Authorized Specialty Diagnoses / Procedures Referred By Contac t Referred To Contact [facility] Diagnoses Upper abdominal pain Nausea Procedures US ABD RIGHT UPPER QUADRANT US ABDOMINAL REAL TIME W/IMAGE LIMITED Soila Easton APRN.CNP [address] [place] [address] [facility] Referral ID Status Reason Start Date Expiration Date Visits Requested Visits Authorized [id number] Authorized Auto-Generat ed Referral 09/09/2025 1 1 [facility] for referral (narrative)* Outpatient Procedure (Routine) - New Request Specialty Diagnoses / Procedures Referred By Contac t Referred To Contact [facility] Diagnoses Chronic recurrent pancreatitis (HCC) 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 chronic pancreatitis (HCC) Chronic RUQ pain Procedures EGD - THERAPEUTIC, EUS, OR TUBE INTERVENTIONS EGD TRANSORAL BIOPSY SINGLE/MULTIPLE Juan Senior APRN.CNP [address] [place] [address] [facility] [place] [address] [place], [place] [address]d [place] [id number] Referral ID Status Reason Start Date Expiration Date Visits Requested Visits Authorized [id number] New Request Auto-Generat ed Referral 11/02/2024 11/02/2025 1 1 * Consult, Test, Treat (Routine) - Pending Review Specialty Diagnoses / Procedures Referred By Contac t Referred To Contact [facility] [place] Diagnoses Chronic recurrent pancreatitis (HCC) 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 chronic pancreatitis (HCC) Chronic RUQ pain Procedures [facility]SULT TO [facility] ([facility]) OFFICE/OUTPATIENT [facility] 60 MINUTES Juan Senior APRN.RN FACULTY [address] [place] [address] Referral ID Status Reason Start Date Expiration Date Visits Requested Visits Authorized [id number] Pending Review PCP Requested Referral 11/02/2024 01/31/2025 1 1 [facility] for referral (narrative)No reason for referral information [facility]: Reason for visit Narrative* Diagnostic Procedure Only (Routine) - Closed Specialty Diagnoses / Procedures Referred By Contac t Referred To Contact XR IMAGING Diagnoses Numbness and tingling of both lower extremities Procedures XR LUMBAR GENERAL 3V AP/LAT/L5-S1 RADEX SPINE LUMBOSACRAL 2/3 VIEWS Misbah Elkins MD [address] [place] [address] X[facility] [place] [address] Referral ID Status Reason Start Date Expiration Date V isits Requested Visits Authorized [id number] Closed Auto-Generate d Referral 11/25/2022 12/25/2023 1 1 [facility] for visit Narrative* Outpatient Procedure (Routine) - Closed Specialty Diagnoses / Procedures Referred By Contac t Referred To Contact [facility] Diagnoses Chronic recurrent pancreatitis (HCC) 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 chronic pancreatitis (HCC) Chronic RUQ pain Procedures EGD - THERAPEUTIC, EUS, OR TUBE INTERVENTIONS EGD TRANSORAL BIOPSY SINGLE/MULTIPLE Juan Senior APRN.RN FACULTY [address] [place] [address] Phone: tel: fax: [facility] [address] [place] [address] Referral ID Status Reason Start Date Expiration Date V isits Requested Visits Authorized [id number] Closed Auto-Generate d Referral 11/02/2024 11/02/2025 1 1 [facility] for visit Narrative* Outpatient Procedure (Routine) - Closed Specialty Diagnoses / Procedures Referred By Contac t Referred To Contact [facility] Diagnoses Other chronic pancreatitis (HCC) Procedures ERCP ERCP DX COLLECTION SPECIMEN BRUSHING/WASHING Jane Farrell MD [address] [address] Phone: tel: fax: [facility] [address] [place] [address] Referral ID Status Reason Start Date Expiration Date V isits Requested Visits Authorized [id number] Closed Auto-Generate d Referral 12/06/2024 09/27/2025 1 1 [facility] Summary Purpose Family History No Family History [...] FoundDocuments on File Type Date Recorded Patient Drug Safety Physician Expl anation Advance Directive(s) 03/16/2025 3:08 PM Date Activated Date Inactivated Comments 03/15/2025 11:09 PM Question Answer Comments Full Code Order Discussed With: Discussion Not M edically Appropriate Documents on File Type Date Recorded Patient Drug Safety Physician Expl anation Advance Directive(s) 01/10/2021 8:39 AM Advance Directive(s) 12/28/2020 10:28 AM Advance Directive(s) 12/05/2019 6:41 AM Advance Directive Response Recorded Date/ Time Advance Directives No October 11:35am Living Will No March 03, 2022 1 2:49pm Power of Tugboat Operator No March 03, 2022 12:49pm Documents on File Type Date Recorded Patient Drug Safety Physician Expl anation Advance Directive(s) 01/10/2021 8:39 AM Advance Directive(s) 12/28/2020 10:28 AM Advance Directive(s) 12/05/2019 6:41 AM Advance Directive Response Recorded Date/ Time Advance Directives No October 10:35am Living Will No October 19 7:08pm Power of Tugboat Operator No October 19, 2022 7:08pm Latest Code [...] Will No November 01 11:45pm Power of Tugboat Operator No November 01, 2022 11:45pm Advance Directive Response Recorded Date/ Time Advance Directives No October 11:35am Living Will No June 02, 023 3:53pm Power of Tugboat Operator No June 02, 2023 3:53pm Advance Directive Response Recorded Date/ Time Advance Directives No October 11:35am Living Will No July 08 6:10pm Power of Tugboat Operator No July 08, 2023 6:10pm Advance Directive Response Recorded Date/ Time Advance Directives No October 11:35am Living Will No January 02, 2024 7:23pm Power of Tugboat Operator No January 01 7:23pm Advance Directive Response Recorded Date/ Time Advance Directives No October 11:35am Living Will No January 02, 2024 11:15pm Power of Tugboat Operator No January 01 11:15pm Advance Directive Response Recorded Date/ Time Advance Directives No October 11:35am Living Will No January 19, 2024 11:39pm Power of Tugboat Operator No January 18 11:39pm Advance Directive Response Recorded Date/ Time Living Will No December 04, 2024 4:02pm Power of Tugboat Operator No December 04 4:02pm Advance Directives No October 11:35am Advance Directive Response Recorded Date/ Time Living Will No December 04, 2024 8:21pm Power of Tugboat Operator No December 04 8:21pm Advance Directives No October 11:35am Advance Directive Response Recorded Date/ Time Living Will No December 04, 2024 8:21pm Do you have a Healthcare Power of Tugboat Operator? No December 04, 2024 8:21pm Living Will No December 24, 2024 8:13pm Do you have a Healthcare Power of Tugboat Operator? No December 24, 2024 8:13pm Advance Directives No October 11:35am Advance Directive Response Recorded Date/ Time Living Will No December 04, 2024 8:21pm Do you have a Healthcare Power of Tugboat Operator? No December 04, 2024 8:21pm Living Will No December 24, 2024 8:13pm Do you have a Healthcare Power of Tugboat Operator? No December 24, 2024 8:13pm Living Will No January 01, 2025 8:27pm Do you have a Healthcare Power of Tugboat Operator? No January 01, 2025 8:27pm Advance Directives No October 11:35am Advance Directive Response Recorded Date/ Time Living Will No January 19, 2024 11:39pm Do you have a Healthcare Power of Tugboat Operator? No January 19, 2024 11:39pm Living Will No December 04, 2024 8:21pm Do you have a Healthcare Power of Tugboat Operator? No December 04, 2024 8:21pm Living Will No December 24, 2024 8:13pm Do you have a Healthcare Power of Tugboat Operator? No December 24, 2024 8:13pm Living Will No January 01, 2025 8:27pm Do you have a Healthcare Power of Tugboat Operator? No January 01, 2025 8:27pm Do you have a Healthcare Power of Tugboat Operator? Yes January 27, 2025 10:20am Name of Medical Power of Tugboat Operator sister January 27, 2025 10:20am Advance Directives No October 11:35am Advance Directive Response Recorded Date/ Time Living Will No January 19, 2024 11:39pm Do you have a Healthcare Power of Tugboat Operator? No January 19, 2024 11:39pm Living Will No December 04, 2024 8:21pm Do you have a Healthcare Power of Tugboat Operator? No December 04, 2024 8:21pm Living Will No December 24, 2024 8:13pm Do you have a Healthcare Power of Tugboat Operator? No December 24, 2024 8:13pm Living Will No January 01, 2025 8:27pm Do you have a Healthcare Power of Tugboat Operator? No January 01, 2025 8:27pm Do you have a Healthcare Power of Tugboat Operator? Yes January 27, 2025 10:20am Name of Medical Power of Tugboat Operator sister January 27, 2025 10:20am Do you have a Healthcare Power of Tugboat Operator? No February 26, 2025 2:12pm Advance Directives No October 11:35am Advance Directive Response Recorded Date/ Time Living Will No January 19, 2024 11:39pm Do you have a Healthcare Power of Tugboat Operator? No January 19, 2024 11:39pm Living Will No December 04, 2024 8:21pm Do you have a Healthcare Power of Tugboat Operator? No December 04, 2024 8:21pm Living Will No December 24, 2024 8:13pm Do you have a Healthcare Power of Tugboat Operator? No December 24, 2024 8:13pm Living Will No January 01, 2025 8:27pm Do you have a Healthcare Power of Tugboat Operator? No January 01, 2025 8:27pm Do you have a Healthcare Power of Tugboat Operator? Yes January 27, 2025 10:20am Name of Medical Power of Tugboat Operator sister January 27, 2025 10:20am Do you have a Healthcare Power of Tugboat Operator? No March 13, 2025 12:02pm Do you have a Healthcare Power of Tugboat Operator? No February 26, 2025 2:12pm Advance Directives No October 11:35am Advance Directive Response Recorded Date/ Time Living Will No January 19, 2024 11:39pm Do you have a Healthcare Power of Tugboat Operator? No January 19, 2024 11:39pm Living Will No December 04, 2024 8:21pm Do you have a Healthcare Power of Tugboat Operator? No December 04, 2024 8:21pm Living Will No December 24, 2024 8:13pm Do you have a Healthcare Power of Tugboat Operator? No December 24, 2024 8:13pm Living Will No January 01, 2025 8:27pm Do you have a Healthcare Power of Tugboat Operator? No January 01, 2025 8:27pm Do you have a Healthcare Power of Tugboat Operator? Yes January 27, 2025 10:20am Name of Medical Power of Tugboat Operator sister January 27, 2025 10:20am Do you have a Healthcare Power of Tugboat Operator? No March 14, 2025 1:26am Do you have a Healthcare Power of Tugboat Operator? No February 26, 2025 2:12pm Advance Directives No October 11:35am Date Activated Date Inactivated Comments 03/15/2025 11:09 PM 03/23/2025 10:54 PM Documents on File Type Date Recorded Patient Drug Safety Physician Expl anation Advance Directive(s) 03/16/2025 3:08 PM Date Activated Date Inactivated Comments 03/15/2025 11:09 PM 03/23/2025 10:54 PM Question Answer Comments Full Code Order Discussed With: Discussion Not M edically Appropriate Chief Complaint and Reason for Visit Chief [...] ABDOMINAL PAIN February 26, 2025 1:57p m Chief Complaint Admit Date J43.2 - Centrilobular [...] ABDOMINAL PAIN February 26, 2025 1:57p m sob March 13, 2025 11:2 0pm PANCREATITIS, COMPLICATION WITH STENT Ju 2024 11:28pm Reason for Visit Admit Date COPD with [...] than 30 pack years January 262024 1:07pm Abdominal pain March 13, 2025 11:2 8pm Chronic pancreatitis March 13, 2025 11: 28pm COPD (chronic obstructive pulmonary dise ase) March 13, 2025 11:28pm Smoking greater than 30 pack years March 13, 2025 11:28pm Chief Complaint Admit Date J43.2 - Centrilobular [...] ABDOMINAL PAIN February 26, 2025 1:57p m sob March 13, 2025 11:2 0pm PANCREATITIS, COMPLICATION WITH STENT Ju ne 2024 11:28pm PANCREATITIS, COMPLICATION WITH STENT Ju ne 2024 10:25am PANCREATITIS, COMPLICATION WITH STENT Ju ne 2024 8:20am PANCREATITIS, COMPLICATION WITH STENT Ju ne 2024 7:08pm Reason for Visit Admit Date COPD with [...] than 30 pack years January 262024 1:07pm Abdominal pain March 13, 2025 11:2 8pm Acute on chronic respiratory failure with hypoxia and hypercapnia March 13, 2025 11:28pm Chronic pancreatitis March 13, 2025 11: 28pm COPD (chronic obstructive pulmonary dise ase) March 13, 2025 11:28pm Smoking greater than 30 pack years March 13, 2025 11:28pm Chief Complaint Admit Date ACUTE HYPOXIC RESP FAILURE; SECONDA TO C [...] ABDOMINAL PAIN February 26, 2025 1:57p m sob March 13, 2025 11:2 0pm PANCREATITIS, COMPLICATION WITH STENT Ju ks 2024 11:28pm PANCREATITIS, COMPLICATION WITH STENT Ju ks 2024 10:25am PANCREATITIS, COMPLICATION WITH STENT Ju ks 2024 8:20am PANCREATITIS, COMPLICATION WITH STENT Ju ks 2024 7:08pm PANCREATITIS, COMPLICATION WITH STENT Ju ks 2024 7:31am follow up April 10, 2025 9:57 am Reason for Referral Specialty Diagnoses / Procedures Referred By Travis melendez Referred To Contact Neurology Diagnoses Numbness and tingling of both lower extremities Procedures CONSULT TO NEUROLOGY OFFICE/OUTPATIENT [facility] 60-74 MINUTES Misbah Elkins MD [address] [place] [address] Referral ID Status Reason Start Date Expiration Date Visits Requested Visits Authorized [id number] Authorized PCP Requested Referral 11/25/2022 11/25/2023 1 1 Specialty Diagnoses / Procedures Referred By Travis melendez Referred To Contact XR IMAGING Diagnoses Numbness and tingling of both lower extremities Procedures XR LUMBAR GENERAL 3V AP/LAT/L5-S1 RADEX SPINE LUMBOSACRAL 2/3 VIEWS Misbah Elkins MD [address] [place] [address] Xr Imaging Referral ID Status Reason Start Date Expiration Date V isits Requested Visits Authorized [id number] Closed Auto-Generate d Referral 11/25/2022 12/25/2023 1 1 Specialty Diagnoses / Procedures Referred By Contac t Referred To Contact CT IMAGING Diagnoses Alcoholic hepatitis without ascites Acute pancreatitis, unspecified complication status, unspecified pancreatitis type Upper abdominal pain Nausea Elevated lipase Generalized abdominal tenderness without rebound tenderness Procedures CT ABD/PEL W IVCON CT ABD & PELVIS W/CONTRAST Soila Easton APRN.IGOR [address] [place] [address] [place] [address] Referral ID Status Reason Start Date Expiration Date Visits Requested Visits Authorized [id number] Pending Review Auto-Generat ed Referral 09/14/2025 1 1 Additional Source Comments INFORMATION SOURCE (unrecogn ized section and content) DATE CREATED AUTHOR 03/24/2018 [facility] ([place]) DATE CREATED AUTHOR AUTHOR'S ORGANIZ ATION 12/05/2019 [facility] DATE CREATED AUTHOR AUTHOR'S ORGANIZ ATION 12/07/2019 [facility] DATE CREATED AUTHOR AUTHOR'S ORGANIZ ATION 11/07/2022 [facility] DATE CREATED AUTHOR AUTHOR'S ORGANIZ ATION 12/27/2022 [employer] DATE CREATED AUTHOR AUTHOR'S ORGANIZ ATION 06/12/2023 [facility] DATE CREATED AUTHOR AUTHOR'S ORGANIZ ATION 03/30/2025 [facility] DATE CREATED AUTHOR AUTHOR'S ORGANIZ ATION 04/13/2025 [facility] DATE CREATED AUTHOR AUTHOR'S ORGANIZ ATION 04/13/2025 [facility] Source Comments (unrecognize d section and content) In the event this informatio n is protected by the Federal Confidentiality of Alcohol and Drug Abuse Patient Records regulations: The Federal rules restrict any use of the information to criminally investigate or prosecute any alcohol or drug abuse patient.[facility] the event this information is protected by the Federal Confidentiality of Alcohol and Drug Abuse Patient Records regulations: The Federal rules restrict any use of the information to criminally investigate or prosecute any alcohol or drug abuse patient.[facility] Hospital[facility] the event this information is protected by the Federal Confidentiality of Alcohol and Drug Abuse Patient Records regulations: The Federal rules restrict any use of the information to criminally investigate or prosecute any alcohol or drug abuse patient.[facility] Hospital[facility] the event this information is protected by the Federal Confidentiality of Alcohol and Drug Abuse Patient Records regulations: The Federal rules restrict any use of the information to criminally investigate or prosecute any alcohol or drug abuse patient.[facility] the event this information is protected by the Federal Confidentiality of Alcohol and Drug Abuse Patient Records regulations: The Federal rules restrict any use of the information to criminally investigate or prosecute any alcohol or drug abuse patient.[facility] the event this information is protected by the Federal Confidentiality of Alcohol and Drug Abuse Patient Records regulations: The Federal rules restrict any use of the information to criminally investigate or prosecute any alcohol or drug abuse patient.[facility] Hospital[facility] the event this information is protected by the Federal Confidentiality of Alcohol and Drug Abuse Patient Records regulations: The Federal rules restrict any use of the information to criminally investigate or prosecute any alcohol or drug abuse patient.[facility] Hospital[facility] the event this information is protected by the Federal Confidentiality of Alcohol and Drug Abuse Patient Records regulations: The Federal rules restrict any use of the information to criminally investigate or prosecute any alcohol or drug abuse patient.[facility] the event this information is protected by the Federal Confidentiality of Alcohol and Drug Abuse Patient Records regulations: The Federal rules restrict any use of the information to criminally investigate or prosecute any alcohol or drug abuse patient.[facility] the event this information is protected by the Federal Confidentiality of Alcohol and Drug Abuse Patient Records regulations: The Federal rules restrict any use of the information to criminally investigate or prosecute any alcohol or drug abuse patient.[facility] Hospital[facility] the event this information is protected by the Federal Confidentiality of Alcohol and Drug Abuse Patient Records regulations: The Federal rules restrict any use of the information to criminally investigate or prosecute any alcohol or drug abuse patient.[facility] Hospital[facility] the event this information is protected by the Federal Confidentiality of Alcohol and Drug Abuse Patient Records regulations: The Federal rules restrict any use of the information to criminally investigate or prosecute any alcohol or drug abuse patient.[facility] Hospital[facility] the event this information is protected by the Federal Confidentiality of Alcohol and Drug Abuse Patient Records regulations: The Federal rules restrict any use of the information to criminally investigate or prosecute any alcohol or drug abuse patient.[facility] Hospital[facility] the event this information is protected by the Federal Confidentiality of Alcohol and Drug Abuse Patient Records regulations: The Federal rules restrict any use of the information to criminally investigate or prosecute any alcohol or drug abuse patient.[facility] Hospital[facility] the event this information is protected by the Federal Confidentiality of Alcohol and Drug Abuse Patient Records regulations: The Federal rules restrict any use of the information to criminally investigate or prosecute any alcohol or drug abuse patient.[facility] Hospital[facility] the event this information is protected by the Federal Confidentiality of Alcohol and Drug Abuse Patient Records regulations: The Federal rules restrict any use of the information to criminally investigate or prosecute any alcohol or drug abuse patient.[facility] Hospital[facility] the event this information is protected by the Federal Confidentiality of Alcohol and Drug Abuse Patient Records regulations: The Federal rules restrict any use of the information to criminally investigate or prosecute any alcohol or drug abuse patient.[facility] Hospital[facility] the event this information is protected by the Federal Confidentiality of Alcohol and Drug Abuse Patient Records regulations: The Federal rules restrict any use of the information to criminally investigate or prosecute any alcohol or drug abuse patient.[facility] Hospital[facility] the event this information is protected by the Federal Confidentiality of Alcohol and Drug Abuse Patient Records regulations: The Federal rules restrict any use of the information to criminally investigate or prosecute any alcohol or drug abuse patient.[facility] HospitalIn the event this information is protected by the Federal Confidentiality of Alcohol and Drug Abuse Patient Records regulations: The Federal rules restrict any use of the information to criminally investigate or prosecute any alcohol or drug abuse patient.[facility] HospitalIn the event this information is protected by the Federal Confidentiality of Alcohol and Drug Abuse Patient Records regulations: The Federal rules restrict any use of the information to criminally investigate or prosecute any alcohol or drug abuse patient.[facility] HospitalIn the event this information is protected by the Federal Confidentiality of Alcohol and Drug Abuse Patient Records regulations: The Federal rules restrict any use of the information to criminally investigate or prosecute any alcohol or drug abuse patient.[facility] HospitalIn the event this information is protected by the Federal Confidentiality of Alcohol and Drug Abuse Patient Records regulations: The Federal rules restrict any use of the information to criminally investigate or prosecute any alcohol or drug abuse patient.[facility] HospitalIn the event this information is protected by the Federal Confidentiality of Alcohol and Drug Abuse Patient Records regulations: The Federal rules restrict any use of the information to criminally investigate or prosecute any alcohol or drug abuse patient.[facility] HospitalIn the event this information is protected by the Federal Confidentiality of Alcohol and Drug Abuse Patient Records regulations: The Federal rules restrict any use of the information to criminally investigate or prosecute any alcohol or drug abuse patient.[facility] HospitalIn the event this information is protected by the Federal Confidentiality of Alcohol and Drug Abuse Patient Records regulations: The Federal rules restrict any use of the information to criminally investigate or prosecute any alcohol or drug abuse patient.[facility] HospitalIn the event this information is protected by the Federal Confidentiality of Alcohol and Drug Abuse Patient Records regulations: The Federal rules restrict any use of the information to criminally investigate or prosecute any alcohol or drug abuse patient.[facility] HospitalIn the event this information is protected by the Federal Confidentiality of Alcohol and Drug Abuse Patient Records regulations: The Federal rules restrict any use of the information to criminally investigate or prosecute any alcohol or drug abuse patient.[facility] HospitalIn the event this information is protected by the Federal Confidentiality of Alcohol and Drug Abuse Patient Records regulations: The Federal rules restrict any use of the information to criminally investigate or prosecute any alcohol or drug abuse patient.[facility] HospitalIn the event this information is protected by the Federal Confidentiality of Alcohol and Drug Abuse Patient Records regulations: The Federal rules restrict any use of the information to criminally investigate or prosecute any alcohol or drug abuse patient.[facility] HospitalIn the event this information is protected by the Federal Confidentiality of Alcohol and Drug Abuse Patient Records regulations: The Federal rules restrict any use of the information to criminally investigate or prosecute any alcohol or drug abuse patient.[facility] HospitalIn the event this information is protected by the Federal Confidentiality of Alcohol and Drug Abuse Patient Records regulations: The Federal rules restrict any use of the information to criminally investigate or prosecute any alcohol or drug abuse patient.[facility] HospitalIn the event this information is protected by the Federal Confidentiality of Alcohol and Drug Abuse Patient Records regulations: The Federal rules restrict any use of the information to criminally investigate or prosecute any alcohol or drug abuse patient.[facility] HospitalIn the event this information is protected by the Federal Confidentiality of Alcohol and Drug Abuse Patient Records regulations: The Federal rules restrict any use of the information to criminally investigate or prosecute any alcohol or drug abuse patient.[facility] HospitalIn the event this information is protected by the Federal Confidentiality of Alcohol and Drug Abuse Patient Records regulations: The Federal rules restrict any use of the information to criminally investigate or prosecute any alcohol or drug abuse patient.[facility] HospitalIn the event this information is protected by the Federal Confidentiality of Alcohol and Drug Abuse Patient Records regulations: The Federal rules restrict any use of the information to criminally investigate or prosecute any alcohol or drug abuse patient.[facility] HospitalIn the event this information is protected by the Federal Confidentiality of Alcohol and Drug Abuse Patient Records regulations: The Federal rules restrict any use of the information to criminally investigate or prosecute any alcohol or drug abuse patient.[facility] HospitalIn the event this information is protected by the Federal Confidentiality of Alcohol and Drug Abuse Patient Records regulations: The Federal rules restrict any use of the information to criminally investigate or prosecute any alcohol or drug abuse patient.[facility] HospitalIn the event this information is protected by the Federal Confidentiality of Alcohol and Drug Abuse Patient Records regulations: The Federal rules restrict any use of the information to criminally investigate or prosecute any alcohol or drug abuse patient.[facility] HospitalIn the event this information is protected by the Federal Confidentiality of Alcohol and Drug Abuse Patient Records regulations: The Federal rules restrict any use of the information to criminally investigate or prosecute any alcohol or drug abuse patient.[facility] HospitalIn the event this information is protected by the Federal Confidentiality of Alcohol and Drug Abuse Patient Records regulations: The Federal rules restrict any use of the information to criminally investigate or prosecute any alcohol or drug abuse patient.[facility] HospitalIn the event this information is protected by the Federal Confidentiality of Alcohol and Drug Abuse Patient Records regulations: The Federal rules restrict any use of the information to criminally investigate or prosecute any alcohol or drug abuse patient.[facility] HospitalIn the event this information is protected by the Federal Confidentiality of Alcohol and Drug Abuse Patient Records regulations: The Federal rules restrict any use of the information to criminally investigate or prosecute any alcohol or drug abuse patient.[facility] HospitalIn the event this information is protected by the Federal Confidentiality of Alcohol and Drug Abuse Patient Records regulations: The Federal rules restrict any use of the information to criminally investigate or prosecute any alcohol or drug abuse patient.[facility] HospitalIn the event this information is protected by the Federal Confidentiality of Alcohol and Drug Abuse Patient Records regulations: The Federal rules restrict any use of the information to criminally investigate or prosecute any alcohol or drug abuse patient.[facility] HospitalIn the event this information is protected by the Federal Confidentiality of Alcohol and Drug Abuse Patient Records regulations: The Federal rules restrict any use of the information to criminally investigate or prosecute any alcohol or drug abuse patient.[facility] HospitalIn the event this information is protected by the Federal Confidentiality of Alcohol and Drug Abuse Patient Records regulations: The Federal rules restrict any use of the information to criminally investigate or prosecute any alcohol or drug abuse patient.[facility] HospitalIn the event this information is protected by the Federal Confidentiality of Alcohol and Drug Abuse Patient Records regulations: The Federal rules restrict any use of the information to criminally investigate or prosecute any alcohol or drug abuse patient.[facility] HospitalIn the event this information is protected by the Federal Confidentiality of Alcohol and Drug Abuse Patient Records regulations: The Federal rules restrict any use of the information to criminally investigate or prosecute any alcohol or drug abuse patient.[facility] HospitalIn the event this information is protected by the Federal Confidentiality of Alcohol and Drug Abuse Patient Records regulations: The Federal rules restrict any use of the information to criminally investigate or prosecute any alcohol or drug abuse patient.[facility] HospitalIn the event this information is protected by the Federal Confidentiality of Alcohol and Drug Abuse Patient Records regulations: The Federal rules restrict any use of the information to criminally investigate or prosecute any alcohol or drug abuse patient.[facility] HospitalIn the event this information is protected by the Federal Confidentiality of Alcohol and Drug Abuse Patient Records regulations: The Federal rules restrict any use of the information to criminally investigate or prosecute any alcohol or drug abuse patient.[facility] HospitalIn the event this information is protected by the Federal Confidentiality of Alcohol and Drug Abuse Patient Records regulations: The Federal rules restrict any use of the information to criminally investigate or prosecute any alcohol or drug abuse patient.[facility] HospitalIn the event this information is protected by the Federal Confidentiality of Alcohol and Drug Abuse Patient Records regulations: The Federal rules restrict any use of the information to criminally investigate or prosecute any alcohol or drug abuse patient.[facility] HospitalIn the event this information is protected by the Federal Confidentiality of Alcohol and Drug Abuse Patient Records regulations: The Federal rules restrict any use of the information to criminally investigate or prosecute any alcohol or drug abuse patient.[facility] HospitalIn the event this information is protected by the Federal Confidentiality of Alcohol and Drug Abuse Patient Records regulations: The Federal rules restrict any use of the information to criminally investigate or prosecute any alcohol or drug abuse patient.[facility] HospitalIn the event this information is protected by the Federal Confidentiality of Alcohol and Drug Abuse Patient Records regulations: The Federal rules restrict any use of the information to criminally investigate or prosecute any alcohol or drug abuse patient.[facility] HospitalIn the event this information is protected by the Federal Confidentiality of Alcohol and Drug Abuse Patient Records regulations: The Federal rules restrict any use of the information to criminally investigate or prosecute any alcohol or drug abuse patient.[facility] HospitalIn the event this information is protected by the Federal Confidentiality of Alcohol and Drug Abuse Patient Records regulations: The Federal rules restrict any use of the information to criminally investigate or prosecute any alcohol or drug abuse patient.[facility] HospitalIn the event this information is protected by the Federal Confidentiality of Alcohol and Drug Abuse Patient Records regulations: The Federal rules restrict any use of the information to criminally investigate or prosecute any alcohol or drug abuse patient.[facility] HospitalIn the event this information is protected by the Federal Confidentiality of Alcohol and Drug Abuse Patient Records regulations: The Federal rules restrict any use of the information to criminally investigate or prosecute any alcohol or drug abuse patient.[facility] HospitalIn the event this information is protected by the Federal Confidentiality of Alcohol and Drug Abuse Patient Records regulations: The Federal rules restrict any use of the information to criminally investigate or prosecute any alcohol or drug abuse patient.[facility] HospitalIn the event this information is protected by the Federal Confidentiality of Alcohol and Drug Abuse Patient Records regulations: The Federal rules restrict any use of the information to criminally investigate or prosecute any alcohol or drug abuse patient.[facility] HospitalIn the event this information is protected by the Federal Confidentiality of Alcohol and Drug Abuse Patient Records regulations: The Federal rules restrict any use of the information to criminally investigate or prosecute any alcohol or drug abuse patient.[facility] HospitalIn the event this information is protected by the Federal Confidentiality of Alcohol and Drug Abuse Patient Records regulations: The Federal rules restrict any use of the information to criminally investigate or prosecute any alcohol or drug abuse patient.[facility] HospitalIn the event this information is protected by the Federal Confidentiality of Alcohol and Drug Abuse Patient Records regulations: The Federal rules restrict any use of the information to criminally investigate or prosecute any alcohol or drug abuse patient.[facility] HospitalIn the event this information is protected by the Federal Confidentiality of Alcohol and Drug Abuse Patient Records regulations: The Federal rules restrict any use of the information to criminally investigate or prosecute any alcohol or drug abuse patient.[facility] HospitalIn the event this information is protected by the Federal Confidentiality of Alcohol and Drug Abuse Patient Records regulations: The Federal rules restrict any use of the information to criminally investigate or prosecute any alcohol or drug abuse patient.[facility] HospitalIn the event this information is protected by the Federal Confidentiality of Alcohol and Drug Abuse Patient Records regulations: The Federal rules restrict any use of the information to criminally investigate or prosecute any alcohol or drug abuse patient.[facility] HospitalIn the event this information is protected by the Federal Confidentiality of Alcohol and Drug Abuse Patient Records regulations: The Federal rules restrict any use of the information to criminally investigate or prosecute any alcohol or drug abuse patient.[facility] HospitalIn the event this information is protected by the Federal Confidentiality of Alcohol and Drug Abuse Patient Records regulations: The Federal rules restrict any use of the information to criminally investigate or prosecute any alcohol or drug abuse patient.[facility] HospitalIn the event this information is protected by the Federal Confidentiality of Alcohol and Drug Abuse Patient Records regulations: The Federal rules restrict any use of the information to criminally investigate or prosecute any alcohol or drug abuse patient.[facility] HospitalIn the event this information is protected by the Federal Confidentiality of Alcohol and Drug Abuse Patient Records regulations: The Federal rules restrict any use of the information to criminally investigate or prosecute any alcohol or drug abuse patient.[facility] HospitalIn the event this information is protected by the Federal Confidentiality of Alcohol and Drug Abuse Patient Records regulations: The Federal rules restrict any use of the information to criminally investigate or prosecute any alcohol or drug abuse patient.[facility] HospitalIn the event this information is protected by the Federal Confidentiality of Alcohol and Drug Abuse Patient Records regulations: The Federal rules restrict any use of the information to criminally investigate or prosecute any alcohol or drug abuse patient.[facility] HospitalIn the event this information is protected by the Federal Confidentiality of Alcohol and Drug Abuse Patient Records regulations: The Federal rules restrict any use of the information to criminally investigate or prosecute any alcohol or drug abuse patient.[facility] HospitalIn the event this information is protected by the Federal Confidentiality of Alcohol and Drug Abuse Patient Records regulations: The Federal rules restrict any use of the information to criminally investigate or prosecute any alcohol or drug abuse patient.[facility] HospitalIn the event this information is protected by the Federal Confidentiality of Alcohol and Drug Abuse Patient Records regulations: The Federal rules restrict any use of the information to criminally investigate or prosecute any alcohol or drug abuse patient.[facility] HospitalIn the event this information is protected by the Federal Confidentiality of Alcohol and Drug Abuse Patient Records regulations: The Federal rules restrict any use of the information to criminally investigate or prosecute any alcohol or drug abuse patient.[facility] HospitalIn the event this information is protected by the Federal Confidentiality of Alcohol and Drug Abuse Patient Records regulations: The Federal rules restrict any use of the information to criminally investigate or prosecute any alcohol or drug abuse patient.[facility] HospitalIn the event this information is protected by the Federal Confidentiality of Alcohol and Drug Abuse Patient Records regulations: The Federal rules restrict any use of the information to criminally investigate or prosecute any alcohol or drug abuse patient.[facility] HospitalIn the event this information is protected by the Federal Confidentiality of Alcohol and Drug Abuse Patient Records regulations: The Federal rules restrict any use of the information to criminally investigate or prosecute any alcohol or drug abuse patient.[facility] HospitalIn the event this information is protected by the Federal Confidentiality of Alcohol and Drug Abuse Patient Records regulations: The Federal rules restrict any use of the information to criminally investigate or prosecute any alcohol or drug abuse patient.[facility] HospitalIn the event this information is protected by the Federal Confidentiality of Alcohol and Drug Abuse Patient Records regulations: The Federal rules restrict any use of the information to criminally investigate or prosecute any alcohol or drug abuse patient.[facility] HospitalIn the event this information is protected by the Federal Confidentiality of Alcohol and Drug Abuse Patient Records regulations: The Federal rules restrict any use of the information to criminally investigate or prosecute any alcohol or drug abuse patient.[facility] HospitalIn the event this information is protected by the Federal Confidentiality of Alcohol and Drug Abuse Patient Records regulations: The Federal rules restrict any use of the information to criminally investigate or prosecute any alcohol or drug abuse patient.[facility] HospitalIn the event this information is protected by the Federal Confidentiality of Alcohol and Drug Abuse Patient Records regulations: The Federal rules restrict any use of the information to criminally investigate or prosecute any alcohol or drug abuse patient.[facility] HospitalIn the event this information is protected by the Federal Confidentiality of Alcohol and Drug Abuse Patient Records regulations: The Federal rules restrict any use of the information to criminally investigate or prosecute any alcohol or drug abuse patient.[facility] HospitalIn the event this information is protected by the Federal Confidentiality of Alcohol and Drug Abuse Patient Records regulations: The Federal rules restrict any use of the information to criminally investigate or prosecute any alcohol or drug abuse patient.[facility] HospitalIn the event this information is protected by the Federal Confidentiality of Alcohol and Drug Abuse Patient Records regulations: The Federal rules restrict any use of the information to criminally investigate or prosecute any alcohol or drug abuse patient.[facility] HospitalIn the event this information is protected by the Federal Confidentiality of Alcohol and Drug Abuse Patient Records regulations: The Federal rules restrict any use of the information to criminally investigate or prosecute any alcohol or drug abuse patient.[facility] HospitalIn the event this information is protected by the Federal Confidentiality of Alcohol and Drug Abuse Patient Records regulations: The Federal rules restrict any use of the information to criminally investigate or prosecute any alcohol or drug abuse patient.[facility] HospitalIn the event this information is protected by the Federal Confidentiality of Alcohol and Drug Abuse Patient Records regulations: The Federal rules restrict any use of the information to criminally investigate or prosecute any alcohol or drug abuse patient.[facility] HospitalIn the event this information is protected by the Federal Confidentiality of Alcohol and Drug Abuse Patient Records regulations: The Federal rules restrict any use of the information to criminally investigate or prosecute any alcohol or drug abuse patient.[facility] HospitalIn the event this information is protected by the Federal Confidentiality of Alcohol and Drug Abuse Patient Records regulations: The Federal rules restrict any use of the information to criminally investigate or prosecute any alcohol or drug abuse patient.[facility] HospitalIn the event this information is protected by the Federal Confidentiality of Alcohol and Drug Abuse Patient Records regulations: The Federal rules restrict any use of the information to criminally investigate or prosecute any alcohol or drug abuse patient.[facility] HospitalIn the event this information is protected by the Federal Confidentiality of Alcohol and Drug Abuse Patient Records regulations: The Federal rules restrict any use of the information to criminally investigate or prosecute any alcohol or drug abuse patient.[facility] HospitalIn the event this information is protected by the Federal Confidentiality of Alcohol and Drug Abuse Patient Records regulations: The Federal rules restrict any use of the information to criminally investigate or prosecute any alcohol or drug abuse patient.[facility] HospitalIn the event this information is protected by the Federal Confidentiality of Alcohol and Drug Abuse Patient Records regulations: The Federal rules restrict any use of the information to criminally investigate or prosecute any alcohol or drug abuse patient.[facility] HospitalIn the event this information is protected by the Federal Confidentiality of Alcohol and Drug Abuse Patient Records regulations: The Federal rules restrict any use of the information to criminally investigate or prosecute any alcohol or drug abuse patient.[facility] HospitalIn the event this information is protected by the Federal Confidentiality of Alcohol and Drug Abuse Patient Records regulations: The Federal rules restrict any use of the information to criminally investigate or prosecute any alcohol or drug abuse patient.[facility] HospitalIn the event this information is protected by the Federal Confidentiality of Alcohol and Drug Abuse Patient Records regulations: The Federal rules restrict any use of the information to criminally investigate or prosecute any alcohol or drug abuse patient.[facility] HospitalIn the event this information is protected by the Federal Confidentiality of Alcohol and Drug Abuse Patient Records regulations: The Federal rules restrict any use of the information to criminally investigate or prosecute any alcohol or drug abuse patient.[facility] HospitalIn the event this information is protected by the Federal Confidentiality of Alcohol and Drug Abuse Patient Records regulations: The Federal rules restrict any use of the information to criminally investigate or prosecute any alcohol or drug abuse patient.[facility] HospitalIn the event this information is protected by the Federal Confidentiality of Alcohol and Drug Abuse Patient Records regulations: The Federal rules restrict any use of the information to criminally investigate or prosecute any alcohol or drug abuse patient.[facility] HospitalIn the event this information is protected by the Federal Confidentiality of Alcohol and Drug Abuse Patient Records regulations: The Federal rules restrict any use of the information to criminally investigate or prosecute any alcohol or drug abuse patient.[facility]In the event this information is protected by the Federal Confidentiality of Alcohol and Drug Abuse Patient Records regulations: The Federal rules restrict any use of the information to criminally investigate or prosecute any alcohol or drug abuse patient.[facility] HospitalIn the event this information is protected by the Federal Confidentiality of Alcohol and Drug Abuse Patient Records regulations: The Federal rules restrict any use of the information to criminally investigate or prosecute any alcohol or drug abuse patient.[facility]In the event this information is protected by the Federal Confidentiality of Alcohol and Drug Abuse Patient Records regulations: The Federal rules restrict any use of the information to criminally investigate or prosecute any alcohol or drug abuse patient.[facility] HospitalIn the event this information is protected by the Federal Confidentiality of Alcohol and Drug Abuse Patient Records regulations: The Federal rules restrict any use of the information to criminally investigate or prosecute any alcohol or drug abuse patient.[facility] HospitalIn the event this information is protected by the Federal Confidentiality of Alcohol and Drug Abuse Patient Records regulations: The Federal rules restrict any use of the information to criminally investigate or prosecute any alcohol or drug abuse patient.[facility] HospitalIn the event this information is protected by the Federal Confidentiality of Alcohol and Drug Abuse Patient Records regulations: The Federal rules restrict any use of the information to criminally investigate or prosecute any alcohol or drug abuse patient.[facility] HospitalIn the event this information is protected by the Federal Confidentiality of Alcohol and Drug Abuse Patient Records regulations: The Federal rules restrict any use of the information to criminally investigate or prosecute any alcohol or drug abuse patient.[facility] HospitalIn the event this information is protected by the Federal Confidentiality of Alcohol and Drug Abuse Patient Records regulations: The Federal rules restrict any use of the information to criminally investigate or prosecute any alcohol or drug abuse patient.[facility]In the event this information is protected by the Federal Confidentiality of Alcohol and Drug Abuse Patient Records regulations: The Federal rules restrict any use of the information to criminally investigate or prosecute any alcohol or drug abuse patient.[facility] HospitalIn the event this information is protected by the Federal Confidentiality of Alcohol and Drug Abuse Patient Records regulations: The Federal rules restrict any use of the information to criminally investigate or prosecute any alcohol or drug abuse patient.[facility] HospitalIn the event this information is protected by the Federal Confidentiality of Alcohol and Drug Abuse Patient Records regulations: The Federal rules restrict any use of the information to criminally investigate or prosecute any alcohol or drug abuse patient.[facility] HospitalIn the event this information is protected by the Federal Confidentiality of Alcohol and Drug Abuse Patient Records regulations: The Federal rules restrict any use of the information to criminally investigate or prosecute any alcohol or drug abuse patient.[facility] HospitalIn the event this information is protected by the Federal Confidentiality of Alcohol and Drug Abuse Patient Records regulations: The Federal rules restrict any use of the information to criminally investigate or prosecute any alcohol or drug abuse patient.[facility] HospitalIn the event this information is protected by the Federal Confidentiality of Alcohol and Drug Abuse Patient Records regulations: The Federal rules restrict any use of the information to criminally investigate or prosecute any alcohol or drug abuse patient.[facility] HospitalIn the event this information is protected by the Federal Confidentiality of Alcohol and Drug Abuse Patient Records regulations: The Federal rules restrict any use of the information to criminally investigate or prosecute any alcohol or drug abuse patient.[facility] HospitalIn the event this information is protected by the Federal Confidentiality of Alcohol and Drug Abuse Patient Records regulations: The Federal rules restrict any use of the information to criminally investigate or prosecute any alcohol or drug abuse patient.[facility] HospitalIn the event this information is protected by the Federal Confidentiality of Alcohol and Drug Abuse Patient Records regulations: The Federal rules restrict any use of the information to criminally investigate or prosecute any alcohol or drug abuse patient.[facility] HospitalIn the event this information is protected by the Federal Confidentiality of Alcohol and Drug Abuse Patient Records regulations: The Federal rules restrict any use of the information to criminally investigate or prosecute any alcohol or drug abuse patient.[facility] HospitalIn the event this information is protected by the Federal Confidentiality of Alcohol and Drug Abuse Patient Records regulations: The Federal rules restrict any use of the information to criminally investigate or prosecute any alcohol or drug abuse patient.[facility] HospitalIn the event this information is protected by the Federal Confidentiality of Alcohol and Drug Abuse Patient Records regulations: The Federal rules restrict any use of the information to criminally investigate or prosecute any alcohol or drug abuse patient.[facility] HospitalIn the event this information is protected by the Federal Confidentiality of Alcohol and Drug Abuse Patient Records regulations: The Federal rules restrict any use of the information to criminally investigate or prosecute any alcohol or drug abuse patient.[facility] HospitalIn the event this information is protected by the Federal Confidentiality of Alcohol and Drug Abuse Patient Records regulations: The Federal rules restrict any use of the information to criminally investigate or prosecute any alcohol or drug abuse patient.[facility]In the event this information is protected by the Federal Confidentiality of Alcohol and Drug Abuse Patient Records regulations: The Federal rules restrict any use of the information to criminally investigate or prosecute any alcohol or drug abuse patient.[facility]In the event this information is protected by the Federal Confidentiality of Alcohol and Drug Abuse Patient Records regulations: The Federal rules restrict any use of the information to criminally investigate or prosecute any alcohol or drug abuse patient.[facility] HospitalIn the event this information is protected by the Federal Confidentiality of Alcohol and Drug Abuse Patient Records regulations: The Federal rules restrict any use of the information to criminally investigate or prosecute any alcohol or drug abuse patient.[facility] Reason for Visit (unrecogniz ed section and content) Reason Comments cellulitis OD Specialty Diagnoses / Procedures Referred By Contac t Referred To Contact Emergency Medicine Diagnoses Orbital cellulitis on right [facility] [address] [place] [address] Phone: [phone] [facility] [address] [place] [address] Phone: [phone] Referral ID Status Reason Start Date Expiration Date Visits Re quested Visits Authorized [id number] 3 Reason Comments Refill Request Reason Comments Vaginal Problem Reason Onset Date Comments Refill Request 03/21/2022 Reason Comments Yearly Exam Annual Exam Reason Comments Medication Question Reason Comments Opened In Error Reason Comments Radiology US Specialty Diagnoses / Procedures Referred By Contac t Referred To Contact US IMAGING Diagnoses 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 chronic pancreatitis (HCC) Alcoholic hepatitis without ascites Procedures US ABD RT UPPER QUADRANT US ABDOMINAL REAL TIME W/IMAGE LIMITED Soila Easton APRN.RN FACULTY [address] [place] [address] Us Imaging Referral ID Status Reason Start Date Expiration Date V isits Requested Visits Authorized [id number] Closed Auto-Generate d Referral 04/17/2022 05/17/2023 1 1 Reason Onset Date Comments Refill Request 05/22/2022 Reason Comments Alcohol induced chronic pancreatitis Alc oholic hepatitis w/o ascites Specialty Diagnoses / Procedures Referred By Contac t Referred To Contact Gastroenterology Diagnoses 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 chronic pancreatitis (HCC) Alcoholic hepatitis without ascites Procedures CONSULT TO GASTROENTEROLOGY OFFICE/OUTPATIENT NEW HIGH MDM 60-74 MINUTES Soila Easton APRN.RN FACULTY [address] [place] [address] Referral ID Status Reason Start Date Expiration Date V isits Requested Visits Authorized [id number] Closed PCP Requested Referral 04/17/2022 04/17/2023 1 1 Reason Onset Date Comments Refill Request 06/13/2022 Reason Onset Date Comments Recheck 3 month follow u p Immunizations 07/18/2022 Flu vaccination Reason Comments Recheck [facility] ER follow up, SO B, fevers in evenings Reason Onset Date Comments Speak to Provider 10/23/2022 Reason Comments Hospital F/U RSV d/c'd 10/30/21 Reason Comments Results Reason Comments Same Day Appointment tingling and numbne ss in legs and back and abdomen Reason Comments New Patient Specialty Diagnoses / Procedures Referred By Travis t Referred To Contact Neurology Diagnoses Numbness and tingling of both lower extremities Procedures CONSULT TO NEUROLOGY OFFICE/OUTPATIENT NEW HIGH MDM 60-74 MINUTES Misbah Elkins MD [address] [place] [address] Referral ID Status Reason Start Date Expiration Date V isits Requested Visits Authorized [id number] Closed PCP Requested Referral 11/25/2022 11/25/2023 1 [...] CT Specialty Diagnoses / Procedures Referred By Travis t Referred To Contact CT IMAGING Diagnoses Alcoholic hepatitis without ascites Acute pancreatitis, unspecified complication status, unspecified pancreatitis type Upper abdominal pain Nausea Elevated lipase Generalized abdominal tenderness without rebound tenderness Procedures CT ABD/PEL W IVCON CT ABD & PELVIS W/CONTRAST Soila Easton APRN.RN FACULTY [address] [place] [address] [place] [address] Referral ID Status Reason Start Date Expiration Date V isits Requested Visits Authorized [id number] Closed Auto-Generate d Referral 08/15/2024 10/14/2024 1 1 Specialty Diagnoses / Procedures Referred By Contac t Referred To Contact CT IMAGING Diagnoses Alcoholic hepatitis without ascites Acute pancreatitis, unspecified complication status, unspecified pancreatitis type Upper abdominal pain Nausea Elevated lipase Generalized abdominal tenderness without rebound tenderness Procedures CT ABD/PEL W IVCON CT ABD & PELVIS W/CONTRAST Soila Easton, UNA.RN FACULTY [address] [place] [address] [place] [address] Reason Onset Date Comments Refill Request 10/28/2024 Reason Comments New Patient Chronic recurrent pa ncreatitis (HCC) [K86.1]; 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] Specialty Diagnoses / Procedures Referred By Contac t Referred To Contact Gastroenterology Diagnoses Chronic recurrent pancreatitis (HCC) 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 chronic pancreatitis (HCC) Procedures CONSULT TO GASTROENTEROLOGY OFFICE/OUTPATIENT NEW HIGH MDM 60 MINUTES Soila Easton APRN.RN FACULTY [address] [place] [address] Referral ID Status Reason Start Date Expiration Date V isits Requested Visits Authorized [id number] Closed PCP Requested Referral 09/02/2024 09/02/2025 1 [...] Comments Patient Question 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 Misbah Elkins MD Primary Care Provider Active Team Status: Inactive Member Role Status Dates Dr. Misbah Elkins MD Primary Care Provider Active Start: November 24, 2024 End: November 24, 2024 Ani Eduardo PROTECTION ENGINEER, PROTECTION ENGINEER-C Attending Provider Active Start: November 24, 2024 End: November 24, 2024 Ani Eduardo PROTECTION ENGINEER, PROTECTION ENGINEER-C Referring Provider Active Start: November 24, 2024 End: November 24, 2024 Team Status: Active Member Role Status Dates Dr. Misbah Elkins MD Primary Care Provider Active Start: [...] t: December 04, 2024 Dr. Hever Marrufo , Other Provider Active St art: December 04, 2024 Dr. Gonzalo Cruz MD Other Provider Active Start: December 04, 2024 Dr. Nenita Armando MD Other Provider Active St art: December 04, 2024 Dr. Aris Black DO Other Provider Active Start: December 04, 2024 Dr. Estevan Govea MD Other Provider Active Star t: December 04, 2024 Dr. eDmarco Cervantes MD Other Provider Active Sta rt: December 04, 2024 Team Status: Active Member Role Status Dates Dr. Misbah Elkins MD Primary Care Provider Active Start: [...] Status: Active Member Role Status Dates Dr. Misbah Elkins MD Primary Care Provider Active Start: [...] Status: Active Member Role Status Dates Dr. Misbah Elkins MD Primary Care Provider Active Start: December 05, 2024 Dr. Bridgette Gaxiola MD Attending Provider Activ e Start: December 05, 2024 Team Status: Active Member Role Status Dates Dr. Misbah Elkins MD Primary Care Provider Active Start: December 05, 2024 Dr. Franco Inman MD Emergency Provider Active S tart: December 05, 2024 Dr. Aleta Aguayo , DO Admit Provider Active Start : December 05, 2024 Dr. Aleta Aguayo , Other Provider Active Start : December 05, 2024 Dr. Yrn Kahn DO Attending Provider Active Start: December 05, 2024 Dr. Yrn Kahn , Other Provider Active S tart: December 05, [...] Active St art: December 05, 2024 Dr. Arsi Black , Other Provider Active Start: December 05, 2024 Dr. Estevan Govea MD Other Provider Active Star t: December 05, 2024 Dr. Demarco Cervantes MD Other Provider Active Sta rt: December 05, 2024 Team Status: Active Member Role Status Dates Dr. Misbah Elkins MD Primary Care Provider Active Start: December 06, 2024 Dr. Franco Inman MD Emergency Provider Active S tart: December 06, 2024 Dr. Aleta Aguayo , Admit Provider Active Start : December 06, 2024 Dr. Aleta Aguayo , DO Other Provider Active Start : December 06, 2024 Dr. Yrn Kahn , Other Provider Active S tart: December 06, 2024 Dr. Elton Abraham MD Other Provider Active Start: December 06, 2024 Dr. Ryan Ortega MD Other Provider Active Start: December 06, 2024 Dr. Freddie Perdue MD Other Provider Active Star t: December 06, 2024 Dr. Gonzalo Sebastian , Attending Provider Active S tart: December 06, [...] t: December 06, 2024 Dr. Hever Marrufo , Other Provider Active St art: December 06, 2024 Dr. Gonzalo Cruz MD Other Provider Active Start: December 06, 2024 Dr. Nenita Armando MD Other Provider Active St art: December 06, 2024 Dr. Aris Black , Other Provider Active Start: December 06, 2024 Dr. Estevan Govea MD Other Provider Active Star t: December 06, 2024 Dr. Demarco Cervantes MD Other Provider Active Sta rt: December 06, 2024 Team Status: Active Member Role Status Dates Dr. Misbah Elkins MD Primary Care Provider Active Start: [...] : December 06, 2024 Dr. Maria Antonia aSlinas MD Other Provider Active Star t: December [...] t: December 06, 2024 Dr. Hever Marrufo , Other Provider Active St art: December 06, [...] Status: Active Member Role Status Dates Dr. Misbah Elkins MD Primary Care Provider Active Start: [...] Status: Active Member Role Status Dates Dr. Misbah Elkins MD Primary Care Provider Active Start: [...] December 07, 2024 Dr. Gonzalo Sebastian , Other Provider Active Start : December 07, [...] Provider Active Sta rt: December 07, 2024 Accounting Assistant Relationship Specialty Start Date End Date Misbah Elkins MD [address] [place] [address] PCP - General Internal Medicine 03/26/21 Accounting Assistant Relationship Specialty Start Date End Date Misbah Elkins MD [address] [place] [address] PCP - General Internal Medicine 03/26/21 Accounting Assistant Relationship Specialty Start Date End Date Misbah Elkins MD [address] [place], [place] [id number] PCP - General Internal Medicine 03/26/21 Accounting Assistant Relationship Specialty Start Date End Date Misbah Elkins MD [address] [facility] [place] [address] PCP - General Internal Medicine 03/26/21 Accounting Assistant Relationship Specialty Start Date End Date Misbah Elkins MD [address] [facility] [place] [address] PCP - General Internal Medicine 03/26/21 Accounting Assistant Relationship Specialty Start Date End Date Misbah Elkins MD [address] [facility] [place] [address] PCP - General Internal Medicine 03/26/21 Accounting Assistant Relationship Specialty Start Date End Date Misbah Elkins MD [address] [facility] [place] [address] PCP - General Internal Medicine 03/26/21 Accounting Assistant Relationship Specialty Start Date End Date Misbah Elkins MD [address] [facility] [place] [address] PCP - General Internal Medicine 03/26/21 Accounting Assistant Relationship Specialty Start Date End Date Misbah Elkins MD [address] [place] [address] PCP - General Internal Medicine 03/26/21 Accounting Assistant Relationship Specialty Start Date End Date Misbah Elkins MD [address] [place] [address] PCP - General Internal Medicine 03/26/21 Accounting Assistant Relationship Specialty Start Date End Date Misbah Elkins MD [address] [facility] [place] [address] PCP - General Internal Medicine 03/26/21 Accounting Assistant Relationship Specialty Start Date End Date Misbah Elkins MD [address] [facility] [place] [address] PCP - General Internal Medicine 03/26/21 Accounting Assistant Relationship Specialty Start Date End Date Misbah Elkins MD [address] [place] [address] PCP - General Internal Medicine 03/26/21 Team Status: Active Member Role Status Dates Dr. Bernard Galan III, MD Family Provider Active SOILA OLDER , PROTECTION ENGINEER-C Primary Care Provider Active Team Status: Inactive Member Role Status Dates SOILA OLDER , PROTECTION ENGINEER-C Primary Care Provider Active Ani Eduardo PROTECTION ENGINEER, PROTECTION ENGINEER-C Attending Provider, [facility] Active Team Status: Inactive Member Role Status Dates SOILA OLDER , PROTECTION ENGINEER-C Primary Care Provider Active Dr. Levar Handy DO Attending Provider, Emergency Provider Active Team Status: Inactive Member Role Status Dates SOILA OLDER , PROTECTION ENGINEER-C Primary Care Provider Active Dr. Tasneem Dykes MD Emergency Provider Active Accounting Assistant Relationship Specialty Start Date End Date Jaime Aggarwal MD [address] [place] [address] Resident Ophthalmology 11/01/22 Jeffery Jin MD [address] [place] [address] Resident Ophthalmology 11/01/22 Team Status: Active Member Role Status Dates SOILA OLDER , PROTECTION ENGINEER-C Primary Care Provider Active Dr. Edmund Tang MD Emergency Provider Active Dr. Ciarra Ross MD Admit Provider, Attending Provider , Other Provider Active Team Status: Active Member Role Status Dates SOILA OLDER , PROTECTION ENGINEER-C Primary Care Provider Active Dr. Edmund Tang MD Emergency Provider Active Dr. Ciarra Ross MD Admit Provider, Other Provider Act lopez Dr. Lisa Ochoa MD Attending Provider, Other Provid er Active Team Status: Active Member Role Status Dates SOILA OLDER , PROTECTION ENGINEER-C Primary Care Provider Active Dr. Edmund Tang MD Emergency Provider Active Dr. Ciarra Ross MD Admit Provider, Other Provider Act lopez Dr. Freddie Predue MD Other Provider Active Dr. Gonzalo Sebastian DO Attending Provider, Other Provide r Active Dr. Olivier Coffman MD Other Provider Active Dr. Dieter Harrison MD Other Provider Active Ani Eduardo PROTECTION ENGINEER, PROTECTION ENGINEER-C Other Provider Active Dr. Anastacia Bonilla MD Other Provider Active Dr. Lisa Ochoa MD Other Provider Active Team Status: Active Member Role Status Lily EASTON , PROTECTION ENGINEER-C Primary Care Provider Active Dr. Edmund Tang MD Emergency Provider Active Dr. Ciarra Ross MD Admit Provider, Other Provider Act lopez Dr. Freddie Perdue MD Other Provider Active Dr. Gonzalo Sebastian , Other Provider Active Dr. Olivier Coffman MD Other Provider Active Dr. Dieter Harrison MD Other Provider Active Ani Eduardo PROTECTION ENGINEER, PROTECTION ENGINEER-C Other Provider Active Dr. Anastacia Bonilla MD Attending Provider, Other Prov ider Active Dr. Lisa Ochoa MD Other Provider Active Team Status: Active Member Role Status Lily EASTON , PROTECTION ENGINEER-C Primary Care Provider Active Dr. Edmund Tang MD Emergency Provider Active Dr. Ciarra Ross MD Admit Provider, Other Provider Act lopez Dr. Freddie Perdue MD Other Provider Active Dr. Gonzalo Sebastian DO Other Provider Active Dr. Olivier Coffman MD Other Provider Active Dr. Dieter Harrison MD Other Provider Active Ani Eduardo PROTECTION ENGINEER, PROTECTION ENGINEER-C Other Provider Active Dr. Lisa Ochoa MD Other Provider Active Dr. Courtney Iverson MD Other Provider Active Dr. Anastacia Bonilla MD Attending Provider, Other Prov ider Active Team Status: Active Member Role Status Lily EASTON , PROTECTION ENGINEER-C Primary Care Provider Active Dr. Edmund Tang MD Emergency Provider Active Dr. Ciarra Ross MD Admit Provider, Other Provider Act lopez Dr. Freddie Perdue MD Other Provider Active Dr. Gonzalo Sebastian , Attending Provider, Other Provide r Active Dr. Olivier Coffman MD Other Provider Active Dr. Dieter Hrarison MD Other Provider Active Ani Eduardo PROTECTION ENGINEER, PROTECTION ENGINEER-C Other Provider Active Dr. Lisa Ochoa MD Other Provider Active Dr. Courtney Iverson MD Other Provider Active Dr. Anastacia Bonilla MD Other Provider Active Team Status: Active Member Role Status Lily EASTON , PROTECTION ENGINEER-C Primary Care Provider Active Dr. Donn Galan MD Attending Provider Active Team Status: Active Member Role Status Dates SOILA OLDER , PROTECTION ENGINEER-C Primary Care Provider Active Dr. Nacho Vega MD Attending Provider Active Dr. Mahamed Fatima DO Referring Provider Active Team Status: Active Member Role Status Dates SOILA OLDER , PROTECTION ENGINEER-C Primary Care Provider Active Dr. Edmund Tang [...] Harrison MD Other Provider Active Ani Eduardo PROTECTION ENGINEER, PROTECTION ENGINEER-C Other Provider Active Dr. Courtney Iverson MD Other Provider Active Team Status: Inactive Member Role Status Dates SOILA OLDER , PROTECTION ENGINEER-C Primary Care Provider Active Dr. Tasneem Dykes MD Attending Provider, Emergency Provider Active Team Status: Inactive Member Role Status Dates SOILA OLDER , PROTECTION ENGINEER-C Primary Care Provider Active Dr. Edmund Tang MD Emergency Provider Active Dr. iCarra Ross MD Admit Provider, Other Provider Act lopez Dr. Lisa Ochoa MD Other Provider Active Dr. Anastacia Bonilla MD Attending Provider Active Dr. Freddie Perdue MD Other Provider Active Dr. Gonzalo Sebastian DO Other Provider Active Dr. Olivier Coffman MD Other Provider Active Dr. Dieter Harrison MD Other Provider Active Ani Eduardo PROTECTION ENGINEER, PROTECTION ENGINEER-C Other Provider Active Dr. Courtney Iverson MD Other Provider Active Accounting Assistant Relationship Specialty Start Date End Date Misbah Elkins MD [address] [place], [place] [id number] PCP - General Internal Medicine 03/26/21 Accounting Assistant Relationship Specialty Start Date End Date Misbah Elkins MD [address] [place] [address] PCP - General Internal Medicine 03/26/21 Accounting Assistant Relationship Specialty Start Date End Date Misbah Elkins MD [address] [place] [address] PCP - General Internal Medicine 03/26/21 Accounting Assistant Relationship Specialty Start Date End Date Misbah Elkins MD [address] [place] [address] PCP - General Internal Medicine 03/26/21 Accounting Assistant Relationship Specialty Start Date End Date Misbah Elkins MD [address] [place] [address] PCP - General Internal Medicine 03/26/21 Accounting Assistant Relationship Specialty Start Date End Date Misbah Elkins MD [address] [place] [address] PCP - General Internal Medicine 03/26/21 Accounting Assistant Relationship Specialty Start Date End Date Misbah Elkins MD [address] [place] [address] PCP - General Internal Medicine 03/26/21 Team Status: Active Member Role Status Dates Ani Eduardo PROTECTION ENGINEER, PROTECTION ENGINEER-C Attending Provider, Referrin g Provider Active SOILA EASTON , PROTECTION ENGINEER-C Primary Care Provider Active Team Status: Inactive Member Role Status Dates SOILA EASTON PROTECTION ENGINEER-C Primary Care Provider Active Dr. Levar Handy , DO Emergency Provider Active Accounting Assistant Relationship Specialty Start Date End Date Misbah Elkins MD [address] [place] [address] PCP - General Internal Medicine 03/26/21 Accounting Assistant Relationship Specialty Start Date End Date Misbah Elkins MD [address] [place] [address] PCP - General Internal Medicine 03/26/21 Team Status: Inactive Member Role Status Dates SOILA EASTON PROTECTION ENGINEER-C Primary Care Provider, Referring Prov ider Active Ani Eduardo PROTECTION ENGINEER, PROTECTION ENGINEER-C Attending Provider Active Team Status: Inactive Member Role Status Dates Ani Eduardo NP, PROTECTION ENGINEER-C Attending Provider, Referrin g Provider Active SOILA EASTON PROTECTION ENGINEER-C Primary Care Provider Active Accounting Assistant Relationship Specialty Start Date End Date Misbah Elkins MD [address] [place] [address] PCP - General Internal Medicine 03/26/21 Accounting Assistant Relationship Specialty Start Date End Date Misbah Elkins MD [address] [place] [address] PCP - General Internal Medicine 03/26/21 Team Status: Active Member Role Status Dates Dr. Bernard Galan III, MD Family Provider Active Anat Gutiérrez PROTECTION ENGINEER, PROTECTION ENGINEER-C Primary Care Provider Active Team Status: Active Member Role Status Dates Dr. Víctor Huerta DO Emergency Provider Active Anat Gutiérrez PROTECTION ENGINEER, PROTECTION ENGINEER-C Primary Care Provider Active Dr. Carin Meraz MD Admit Provider, Attending Prov ider Active Team Status: Active Member Role Status Dates Dr. Víctor Huerta DO Emergency Provider Active Anat Gutiérrez PROTECTION ENGINEER, PROTECTION ENGINEER-C Primary Care Provider Active Dr. Carin Meraz MD Admit Provider, Other Provider Active Dr. Anastacia Bonilla MD Attending Provider, Other Prov ider Active Team Status: Active Member Role Status Dates Dr. Víctor Huerta DO Emergency Provider Active Anat Gutiérrez NP, PROTECTION ENGINEER-C Primary Care Provider Active Dr. Carin Meraz MD Admit Provider, Other Provider Active Dr. Bert Greenwood MD Attending Provider, Other Provi mary Active Dr. Anastacia Bonilla MD Other Provider Active Team Status: Inactive Member Role Status Dates Dr. Víctor Huerta DO Emergency Provider Active Anat Gutiérrez NP, PROTECTION ENGINEER-C Primary Care Provider Active Dr. Carin Meraz MD Admit Provider, Other Provider Active Dr. Bert Greenwood MD Attending Provider Active Dr. Anastacia Bonilla MD Other Provider Active Accounting Assistant Relationship Specialty Start Date End Date Misbah Elkins MD [address] [facility] [address] PCP - General Internal Medicine 03/26/21 Accounting Assistant Relationship Specialty Start Date End Date Misbah Elkins MD [address] [place] [address] PCP - General Internal Medicine 03/26/21 Accounting Assistant Relationship Specialty Start Date End Date Misbah Elkins MD [address] [place] [address] PCP - General Internal Medicine 03/26/21 Team Status: Inactive Member Role Status Dates Anat Gutiérrez PROTECTION ENGINEER, PROTECTION ENGINEER-C Primary Care Provider Active Dr. Erik Gomez MD Emergency Provider Active Accounting Assistant Relationship Specialty Start Date End Date Misbah Elkins MD [address] [place] [address] PCP - General Internal Medicine 03/26/21 Accounting Assistant Relationship Specialty Start Date End Date Misbah Elkins MD [address] [place] [address] PCP - General Internal Medicine 03/26/21 Accounting Assistant Relationship Specialty Start Date End Date Misbah Elkins MD [address] [place] [address] PCP - General Internal Medicine 03/26/21 Accounting Assistant Relationship Specialty Start Date End Date Misbah Elkins MD [address] [place] [address] PCP - General Internal Medicine 03/26/21 Accounting Assistant Relationship Specialty Start Date End Date Misbah Elkins MD [address] [place] [address] PCP - General Internal Medicine 03/26/21 Accounting Assistant Relationship Specialty Start Date End Date Misbah Elkins MD [address] [place] [address] PCP - General Internal Medicine 03/26/21 Accounting Assistant Relationship Specialty Start Date End Date Misbah Elkins MD [address] [place] [address] PCP - General Internal Medicine 03/26/21 Accounting Assistant Relationship Specialty Start Date End Date Misbah Elkins MD [address] [place] [address] PCP - General Internal Medicine 03/26/21 Accounting Assistant Relationship Specialty Start Date End Date Misbah Elkins MD [address] [place] [address] PCP - General Internal Medicine 03/26/21 Accounting Assistant Relationship Specialty Start Date End Date Misbah Elkins MD [address] [place] [address] PCP - General Internal Medicine 03/26/21 Accounting Assistant Relationship Specialty Start Date End Date Misbah Elkins MD [address] [place] [address] PCP - General Internal Medicine 03/26/21 Accounting Assistant Relationship Specialty Start Date End Date Misbah Elkins MD [address] [place] [address] PCP - General Internal Medicine 03/26/21 Accounting Assistant Relationship Specialty Start Date End Date Misbah Elkins MD [address] [place] [address] PCP - General Internal Medicine 03/26/21 Accounting Assistant Relationship Specialty Start Date End Date Misbah Elkins MD [address] [place] [address] PCP - General Internal Medicine 03/26/21 Accounting Assistant Relationship Specialty Start Date End Date Misbah Elkins MD [address] [place] [address] PCP - General Internal Medicine 03/26/21 Accounting Assistant Relationship Specialty Start Date End Date Misbah Elkins MD [address] [place] [address] PCP - General Internal Medicine 03/26/21 Accounting Assistant Relationship Specialty Start Date End Date Misbah Elkins MD [address] [place] [address] PCP - General Internal Medicine 03/26/21 Accounting Assistant Relationship Specialty Start Date End Date Misbah Elkins MD [address] [place] [address] PCP - General Internal Medicine 03/26/21 Larry Talley PA-C [address] [place] [address] Transition Coach Family Medicine 09/04/24 Soila Easton APRN.CNP [address] [place] [address] Transition Coach Internal Medicine 09/04/24 Nara Larson PA-C [address] [place] [address] Transition Coach Family Medicine 09/04/24 Accounting Assistant Relationship Specialty Start Date End Date Misbah Elkins MD [address] [place] [address] PCP - General Internal Medicine 03/26/21 Larry Talley PA-C [address] [place] [address] Transition Coach Family Medicine 09/04/24 Soila Easton APRN.RN FACULTY [address] [place] [address] Transition Coach Internal Medicine 09/04/24 Nara Larson PA-C [address] [place] [address] Transition Coach Family Medicine 09/04/24 Accounting Assistant Relationship Specialty Start Date End Date Misbah Elkins MD [address] [place] [address] PCP - General Internal Medicine 03/26/21 Larry Talley PA-C [address] [place] [address] Transition Coach Family Medicine 09/04/24 Soila Easton APRN.RN FACULTY [address] [place] [address] Transition Coach Internal Medicine 09/04/24 Nara Larson PA-C [address] [place] [address] Transition Coach Family Medicine 09/04/24 Accounting Assistant Relationship Specialty Start Date End Date Misbah Elkins MD [address] [facility] [address] PCP - General Internal Medicine 03/26/21 Larry Talley PA-C [address] [place] [address] Transition Coach Family Medicine 09/04/24 Soila Easton APRN.RN FACULTY [address] [place] [address] Transition Coach Internal Medicine 09/04/24 Nara Larson PA-C [address] [place] [address] Transition Coach Family Medicine 09/04/24 Accounting Assistant Relationship Specialty Start Date End Date Misbah Elkins MD [address] [place] [address] PCP - General Internal Medicine 03/26/21 Larry Talley PA-C [address] [place] [address] Transition Coach Family Medicine 09/04/24 Soila Easton, REGIONAL LIAISON.RN FACULTY [address] [place] [address] Transition Coach Internal Medicine 09/04/24 Nara Larson PA-C [address] [place] [address] Transition Coach Family Medicine 09/04/24 Accounting Assistant Relationship Specialty Start Date End Date Misbah Elkins MD [address] [place] [address] PCP - General Internal Medicine 03/26/21 Larry Talley PA-C [address] [place] [address] Transition Coach Family Medicine 09/04/24 Soila Easton APRN.RN FACULTY [address] [place] [address] Transition Coach Internal Medicine 09/04/24 Nara Larson PA-C [address] [place] [address] Transition Coach Family Medicine 09/04/24 Accounting Assistant Relationship Specialty Start Date End Date Misbah Elkins MD [address] [place] [address] PCP - General Internal Medicine 03/26/21 Larry Talley PA-C [address] [place] [address] Transition Coach Family Medicine 09/04/24 Soila Easton APRN.RN FACULTY [address] [place] [address] Transition Coach Internal Medicine 09/04/24 Nara Larson PA-C [address] [place] [address] Transition Coach Family Medicine 09/04/24 Accounting Assistant Relationship Specialty Start Date End Date Misbah Elkins MD [address] [place] [address] PCP - General Internal Medicine 03/26/21 Larry Talley PA-C [address] [place] [address] [facility] Soila Easton APRN.RN FACULTY [address] [place] [address] Transition Coach Internal Medicine 09/04/24 Nara Larson PA-C [address] [place] [address] [facility] Accounting Assistant Relationship Specialty Start Date End Date Misbah Elkins MD [address] [place] [address] PCP - General Internal Medicine 03/26/21 Larry Talley PA-C [address] [place] [address] [facility] 09/04/24 Soila Easton APRN.RN FACULTY [address] [place] [address] Transition Coach Internal Medicine 09/04/24 Nara Larson PA-C [address] [place] [address] [facility] Accounting Assistant Relationship Specialty Start Date End Date Misbah Elkins MD [address] [place] [address] PCP - General Internal Medicine 03/26/21 Larry Talley PA-C [address] [place] [address] Transition Coach Family Medicine 09/04/24 Soila Easton APRN.RN FACULTY [address] [place] [address] Transition Coach Internal Medicine 09/04/24 Nara Larson PA-C [address] [place] [address] Transition Coach Family Medicine 09/04/24 Accounting Assistant Relationship Specialty Start Date End Date Misbah Elkins MD [address] [place] [address] PCP - General Internal Medicine 03/26/21 Soila Easton APRN.RN FACULTY [address] [place] [address] Transition Coach Internal Medicine 09/04/24 Accounting Assistant Relationship Specialty Start Date End Date Misbah Elkins MD [address] [place] [address] PCP - General Internal Medicine 03/26/21 Soila Easton APRN.RN FACULTY [address] [place] [address] Transition Coach Internal Medicine 09/04/24 Accounting Assistant Relationship Specialty Start Date End Date Misbah Elkins MD [address] [place] [address] PCP - General Internal Medicine 03/26/21 Soila Easton APRN.RN FACULTY [address] [place] [address] Transition Coach Internal Medicine 09/04/24 Accounting Assistant Relationship Specialty Start Date End Date Misbah Elkins MD [address] [facility], [place] [address] PCP - General Internal Medicine 03/26/21 Soila Easton APRN.RN FACULTY [address] [place] [address] [facility] Internal Medicine 09/04/24 Team Status: Active Member Role Status Dates Dr. Misbah Elkins MD Primary Care Provider Active Start: November 24, 2024 Ani Eduardo PROTECTION ENGINEER, PROTECTION ENGINEER-C Attending Provider Active Start: November 24, 2024 Ani Eduardo PROTECTION ENGINEER, PROTECTION ENGINEER-C Referring Provider Active Start: November 24, 2024 Team Status: Active Member Role Status Dates Dr. Misbah Elkins MD Primary Care Provider Active Start: December 04, 2024 Dr. Franco Inman MD Emergency Provider Active S tart: December 04, 2024 Dr. Aleta Aguayo DO Admit Provider Active Start : December 04, 2024 Dr. Aleta Aguayo DO Attending Provider Active S tart: December 04, 2024 Accounting Assistant Relationship Specialty Start Date End Date Misbah Elkins MD [address] [place], [place] [address] PCP - General Internal Medicine 03/26/21 Soila Easton APRN.RN FACULTY [address] [place] [address] [facility] Internal Medicine 09/04/24 Team Status: Inactive Member Role Status Dates Dr. Misbah Elkins MD Primary Care Provider Active Start: December 04, 2024 End: December 12, 2024 Dr. Franco Inman MD Emergency Provider Active S tart: December 04, 2024 End: December 12, 2024 Dr. Aleta Aguayo DO Admit Provider Active Start : December 04, 2024 End: December 12, 2024 Dr. Aleta Aguayo , Other Provider Active Start : December 04, 2024 End: December 12, 2024 Dr. Anastacia Bonilla MD Attending Provider Active Start: December 04, 2024 End: December 12, 2024 Dr. Yrn Kahn DO Other Provider Active S tart: December 04, 2024 End: December 12, 2024 Team Status: Active Member Role Status Dates Dr. Misbah Elkins MD Primary Care Provider Active Start: [...] Status: Active Member Role Status Dates Dr. Misbah Elkins MD Primary Care Provider Active Start: [...] Status: Active Member Role Status Dates Dr. Misbah Elkins MD Primary Care Provider Active Start: [...] Status: Active Member Role Status Dates Dr. Misbah Elkins MD Primary Care Provider Active Start: [...] t: December 09, 2024 Dr. Gonzalo Sebastian , Other Provider Active Start : December 09, [...] Status: Active Member Role Status Dates Dr. Misbah Elkins MD Primary Care Provider Active Start: December 10, 2024 Dr. Franco Inman MD Emergency Provider Active S tart: December 10, 2024 Dr. Aleta Aguayo , Admit Provider Active Start : December 10, [...] St art: December 10, 2024 Dr. Franki Jackson MD Other Provider [...] Status: Active Member Role Status Dates Dr. Misbah Elkins MD Primary Care Provider Active Start: [...] t: December 11, 2024 Dr. Hever Marrufo , DO Other Provider Active St art: December 11, 2024 Dr. Gonzalo Cruz MD Other Provider Active Start: December 11, 2024 Dr. Nenita Armando MD Other Provider Active St art: December 11, 2024 Dr. Aris Black , Other Provider Active Start: December 11, 2024 Dr. Estevan Govea MD Other Provider Active Star t: December 11, 2024 Dr. Demarco Cervantes MD Other Provider Active Sta rt: December 11, 2024 Dr. Anastacia Bonilla MD Attending Provider Active Start: December 11, 2024 Dr. Anastacia Bonilla MD Other Provider Active St art: December 11, 2024 Dr. Yrn Kahn , Other Provider Active S tart: December 11, 2024 Team Status: Active Member Role Status Dates Dr. Misbah Elkins MD Primary Care Provider Active Start: [...] December 12, 2024 Dr. Gonzalo Sebastian , Attending Provider Active S tart: December 12, 2024 Team Status: Active Member Role Status Dates Dr. Misbah Elkins MD Primary Care Provider Active Start: [...] Status: Active Member Role Status Dates Dr. Misbah Elkins MD Primary Care Provider Active Start: [...] art: December 12, 2024 Dr. Yrn Kahn DO Other Provider Active S tart: December 12, 2024 Team Status: Active Member Role Status Dates Dr. Misbah Elkins MD Primary Care Provider Active Start: [...] Status: Active Member Role Status Dates Dr. Misbah Elkins MD Primary Care Provider Active Start: [...] Status: Active Member Role Status Dates Dr. Misbah Elkins MD Primary Care Provider Active Start: [...] Status: Active Member Role Status Dates Dr. Misbah Elkins MD Primary Care Provider Active Start: [...] Status: Active Member Role Status Dates Dr. Misbah Elkins MD Primary Care Provider Active Start: [...] December 09, 2024 Dr. Hever Marrufo , DO Other Provider Active St art: December [...] Status: Active Member Role Status Dates Dr. Misbah Elkins MD Primary Care Provider Active Start: December 12, 2024 Dr. Franco Inman MD Emergency Provider Active S tart: December 12, 2024 Dr. Aleta Aguayo , Admit Provider Active Start : December 12, 2024 Dr. Aleta Aguayo , Other Provider Active Start : December 12, 2024 Dr. Anasatcia Bonilla MD Referring Provider Active Start: December 12, 2024 Dr. Anastacia Bonilla MD Other Provider Active St art: December 12, 2024 Dr. Yrn Kahn DO Other Provider Active S tart: December 12, 2024 Dr. Gonzalo Sebastian , Attending Provider Active S tart: December 12, 2024 Team Status: Active Member Role Status Dates Dr. Misbah Elkins MD Primary Care Provider Active Start: [...] art: December 12, 2024 Dr. Yrn Kahn DO Other Provider Active S tart: December 12, 2024 Dr. Marshal Segura DO Attending Provider Active Start: December 12, 2024 Team Status: Inactive Member Role Status Dates Dr. Misbah Elkins MD Primary Care Provider Active Start: December 16, 2024 End: December 16, 2024 Dr. Misbah Elkins MD Referring Provider Active Start: December 16, 2024 End: December 16, 2024 RICARDO Corral Attending Provider Active Start: December 16, 2024 End: December 16, 2024 Team Status: Inactive Member Role Status Dates Dr. Misbah Elkins MD Primary Care Provider Active Start: December 23, 2024 End: December 23, 2024 Dr. Misbah Elkins MD Referring Provider Active Start: December 23, 2024 End: December 23, 2024 Ani Eduardo PROTECTION ENGINEER, PROTECTION ENGINEER-C Attending Provider Active Start: December 23, 2024 End: December 23, 2024 Team Status: Inactive Member Role Status Dates Dr. Misbah Elkins MD Primary Care Provider Active Start: December 24, 2024 End: December 24, 2024 Dr. Mo Velasco DO Emergency Provider Active Start : December 24, 2024 End: December 24, 2024 Accounting Assistant Relationship Specialty Start Date End Date Misbah Elkins MD [address] [place] [address] PCP - General Internal Medicine 03/26/21 Rustam, APRN. SoilaRN FACULTY [address] [place] [address] Transition Coach Internal Medicine 09/04/24 Team Status: Inactive Member Role Status Dates Dr. Misbah Elkins MD Primary Care Provider Active Start: December 24, 2024 End: December 24, 2024 Dr. Mo Velasco DO Attending Provider Active Start : December 24, 2024 End: December 24, 2024 Dr. Mo Velasco DO Emergency Provider Active Start : December 24, 2024 End: December 24, 2024 Team Status: Inactive Member Role Status Dates Dr. Misbah Elkins MD Primary Care Provider Active Start: January 01, 2025 End: January 01, 2025 Leandro Sanchez MD Referring Provider Active Star t: January 01, 2025 End: January 01, 2025 Leandro Sanchez MD Emergency Provider Active Star t: January 01, 2025 End: January 01, 2025 Accounting Assistant Relationship Specialty Start Date End Date Misbah Elkins MD [address] [facility] [address] PCP - General Internal Medicine 03/26/21 Soila Easton, REGIONAL LIAISON.RN FACULTY [address] [place] [address] Transition Coach Internal Medicine 09/04/24 Accounting Assistant Relationship Specialty Start Date End Date Misbah Elkins MD [address] [place] [address] PCP - General Internal Medicine 03/26/21 Soila Easton, REGIONAL LIAISON.RN FACULTY [address] [place] [address] Transition Coach Internal Medicine 09/04/24 Accounting Assistant Relationship Specialty Start Date End Date Misbah Elkins MD [address] [place] [address] PCP - General Internal Medicine 03/26/21 Rustam, Soila, REGIONAL LIAISON.RN FACULTY [address] [place] [address] Transition Coach Internal Medicine 09/04/24 Accounting Assistant Relationship Specialty Start Date End Date Misbah Elkins MD [address] [place] [place] [address] PCP - General Internal Medicine 03/26/21 Soila Easton, REGIONAL LIAISON.RN FACULTY [address] [facility], [place] [address] Transition Coach Internal Medicine 09/04/24 Team Status: Inactive Member Role Status Dates Dr. Misbah Elkins MD Primary Care Provider Active Start: [...] Status: Inactive Member Role Status Dates Dr. Misbah Elkins MD Primary Care Provider Active Start: January 27, 2025 End: January 27, 2025 Dr. Franco Inman MD Attending Provider Active S tart: January 27, 2025 End: January 27, 2025 Dr. Franco Inman MD Emergency Provider Active S tart: January 27, 2025 End: January 27, 2025 Team Status: Inactive Member Role Status Dates Anat Gutiérrez PROTECTION ENGINEER, PROTECTION ENGINEER-C Referring Provider Active Start: February 08, 2025 End: February 08, 2025 Ani Eduardo PROTECTION ENGINEER, PROTECTION ENGINEER-C Attending Provider Active Start: February 08, 2025 End: February 08, 2025 Dr. Misbah Elkins MD Primary Care Provider Active Start: February 08, 2025 End: February 08, 2025 Accounting Assistant Relationship Specialty Start Date End Date Misbah Elkins MD [address] [facility] [place] [address] PCP - General Internal Medicine 03/26/21 Soila Easton APRN.RN FACULTY [address] [facility], [place] [address] Transition Coach Internal Medicine 09/04/24 Accounting Assistant Relationship Specialty Start Date End Date Misbah Elkins MD [address] [facility], [place] [address] PCP - General Internal Medicine 03/26/21 OlderSoila APRN.RN FACULTY [address] [place] [address] [facility] Internal Medicine 09/04/24 Team Status: Inactive Member Role Status Dates Dr. Misbah Elkins MD Primary Care Provider Active Start: February 26, 2025 End: February 26, 2025 Dr. Franco Inman MD Emergency Provider Active S tart: February 26, 2025 End: February 26, 2025 Accounting Assistant Relationship Specialty Start Date End Date Misbah Elkins MD [address] [place] [address] PCP - General Internal Medicine 03/26/21 Older, EDWARD RodriguezN.RN FACULTY [address] [place] [address] [facility] Internal Medicine 09/04/24 Team Status: Inactive Member Role Status Dates Dr. Misbah Elkins MD Primary Care Provider Active Start: February 26, 2025 End: February 26, 2025 Dr. Franco Inman MD Attending Provider Active S tart: February 26, 2025 End: February 26, 2025 Dr. Franco Inman MD Emergency Provider Active S tart: February 26, 2025 End: February 26, 2025 Team Status: Active Member Role Status Dates Dr. Misbah Elkins MD Primary Care Provider Active Start: March 13, 2025 Dr. Macario Alex , DO Emergency Provider Activ e Start: March 13, 2025 Dr. Pako Fernández MD Attending Provider Active Start: March 13, 2025 Team Status: Active Member Role Status Dates Dr. Misbah Elkins MD Primary Care Provider Active Start: March 13, 2025 Dr. Macario Alex DO Emergency Provider Activ e Start: March 13, 2025 Dr. Pako Fernández MD Admit Provider Active Star t: March 13, 2025 Dr. Pako Fernández MD Attending Provider Active Start: March 13, 2025 Team Status: Inactive Member Role Status Dates Dr. Misbah Elkins MD Primary Care Provider Active Start: March 13, 2025 End: March 15, 2025 Dr. Macario Alex DO Emergency Provider Activ e Start: March 13, 2025 End: March 15, 2025 Dr. Pako Fernández MD Admit Provider Active Star t: March 13, 2025 End: March 15, 2025 Dr. Pako Fernández MD Other Provider Active Star t: March 13, 2025 End: March 15, 2025 Dr. Sudhir Izquierdo MD Attending Provider Active Start: March 13, 2025 End: March 15, 2025 Dr. Elton Abraham MD Other Provider Active Start: March 13, 2025 End: March 15, 2025 Dr. Ryan Ortega MD Other Provider Active Start: March 13, 2025 End: March 15, 2025 Dr. Freddie Perdue MD Other Provider Active Star t: March 13, 2025 End: March 15, 2025 Dr. Gonzalo Sebastian DO Other Provider Active Start : March 13, 2025 End: March 15, 2025 Dr. Jackson Britt MD Other Provider Active Sta rt: March 13, 2025 End: March 15, 2025 Dr. Jacky Perez MD Other Provider Active St art: March 13, 2025 End: March 15, 2025 Dr. Cricket Hoover MD Other Provider Active S tart: March 13, 2025 End: March 15, 2025 Dr. Rajni Avalos MD Other Provider Active Start: March 13, 2025 End: March 15, 2025 Dr. Kahlil Jeff MD Other Provider Active Start : March 13, 2025 End: March 15, 2025 Dr. Warren Anguiano MD Other Provider Active Start: March 13, 2025 End: March 15, 2025 Dr. Jaime Rey MD Other Provider Active Start : March 13, 2025 End: March 15, 2025 Dr. Maria Antonia Salinas MD Other Provider Active Star t: March 13, 2025 End: March 15, 2025 Dr. Michael Mistry MD Other Provider Active Sta rt: March 13, 2025 End: March 15, 2025 Dr. Sylvia Hurt MD Other Provider Active Sta rt: March 13, 2025 End: March 15, 2025 Dr. Jhony Arango MD Other Provider Active Star t: March 13, 2025 End: March 15, 2025 Dr. Alex Montesinos MD Other Provider Active St art: March 13, 2025 End: March 15, 2025 Dr. Franki Jackson MD Other Provider Active Star t: March 13, 2025 End: March 15, 2025 Dr. Hever Marrufo , Other Provider Active St art: March 13, 2025 End: March 15, 2025 Dr. Gonzalo Cruz MD Other Provider Active Start: March 13, 2025 End: March 15, 2025 Dr. Nenita Armando MD Other Provider Active St art: March 13, 2025 End: March 15, 2025 Dr. Aris Black , Other Provider Active Start: March 13, 2025 End: March 15, 2025 Dr. Estevan Govea MD Other Provider Active Star t: March 13, 2025 End: March 15, 2025 Dr. Demarco Cervantes MD Other Provider Active Sta rt: March 13, 2025 End: March 15, 2025 Team Status: Active Member Role Status Dates Dr. Misbah Elkins MD Primary Care Provider Active Start: March 14, 2025 Dr. Macario Alex DO Emergency Provider Activ e Start: March 14, 2025 Dr. Pako Fernández MD Admit Provider Active Star t: March 14, 2025 Dr. Pako Fernández MD Other Provider Active Star t: March 14, 2025 Dr. Sudhir Izquierdo MD Attending Provider Active Start: March 14, 2025 Dr. Sudhir Izquierdo MD Other Provider Active Start: March 14, 2025 Team Status: Active Member Role Status Dates Dr. Misbah Elkins MD Primary Care Provider Active Start: March 15, 2025 Dr. Macario Alex DO Emergency Provider Activ e Start: March 15, 2025 Dr. Pako Fernández MD Admit Provider Active Star t: March 15, 2025 Dr. Pako Fernández MD Other Provider Active Star t: March 15, 2025 Dr. Sudhir Izquierdo MD Other Provider Active Start: March 15, 2025 Dr. Elton Abraham MD Other Provider Active Start: March 15, 2025 Dr. Ryan Ortega MD Other Provider Active Start: March 15, 2025 Dr. Freddie Perdue MD Other Provider Active Star t: March 15, 2025 Dr. Gonzalo Sebastian DO Attending Provider Active S tart: March 15, 2025 Dr. Gonzalo Sebastian DO Other Provider Active Start : March 15, 2025 Dr. Jackson Britt MD Other Provider Active Sta rt: March 15, 2025 Dr. Jacky Perez MD Other Provider Active St art: March 15, 2025 Dr. Cricket Hoover MD Other Provider Active S tart: March 15, 2025 Dr. Rajni Avalos MD Other Provider Active Start: March 15, 2025 Dr. Kahlil Jeff MD Other Provider Active Start : March 15, 2025 Dr. Warren Anguiano MD Other Provider Active Start: March 15, 2025 Dr. Jaime Rey MD Other Provider Active Start : March 15, 2025 Dr. Maria Antonia Salinas MD Other Provider Active Star t: March 15, 2025 Dr. Michael Mistry MD Other Provider Active Sta rt: March 15, 2025 Dr. Sylvia Hurt MD Other Provider Active Sta rt: March 15, 2025 Dr. Jhony Arango MD Other Provider Active Star t: March 15, 2025 Dr. Alex Montesinos MD Other Provider Active St art: March 15, 2025 Dr. Franki Jackson MD Other Provider Active Star t: March 15, 2025 Dr. Hever Marrufo DO Other Provider Active St art: March 15, 2025 Dr. Gonzalo Cruz MD Other Provider Active Start: March 15, 2025 Dr. Nenita Armando MD Other Provider Active St art: March 15, 2025 Dr. Aris Black DO Other Provider Active Start: March 15, 2025 Dr. Estevan Govea MD Other Provider Active Star t: March 15, 2025 Dr. Demarco Cervantes MD Other Provider Active Sta rt: March 15, 2025 Team Status: Active Member Role Status Dates Dr. Misbah Elkins MD Primary Care Provider Active Start: March 15, 2025 Dr. Macario Alex DO Emergency Provider Activ e Start: March 15, 2025 Dr. Pako Fernández MD Admit Provider Active Star t: March 15, 2025 Dr. Pako Fernández MD Other Provider Active Star t: March 15, 2025 Dr. Sudhir Izquierdo MD Attending Provider Active Start: March 15, 2025 Dr. Sudhir Izquierdo MD Other Provider Active Start: March 15, 2025 Dr. Elton Abraham MD Other Provider Active Start: March 15, 2025 Dr. Ryan Ortega MD Other Provider Active Start: March 15, 2025 Dr. Freddie Perdue MD Other Provider Active Star t: March 15, 2025 Dr. Gonzalo Sebastian DO Other Provider Active Start : March 15, 2025 Dr. Jackson Britt MD Other Provider Active Sta rt: March 15, 2025 Dr. Jacky Perez MD Other Provider Active St art: March 15, 2025 Dr. Cricket Hoover MD Other Provider Active S tart: March 15, 2025 Dr. Rajni Avalos MD Other Provider Active Start: March 15, 2025 Dr. Kahlil Jeff MD Other Provider Active Start : March 15, 2025 Dr. Warren Anguiano MD Other Provider Active Start: March 15, 2025 Dr. Jaime Rey MD Other Provider Active Start : March 15, 2025 Dr. Maria Antonia Salinas MD Other Provider Active Star t: March 15, 2025 Dr. Michael Mistry MD Other Provider Active Sta rt: March 15, 2025 Dr. Sylvia Hurt MD Other Provider Active Sta rt: March 15, 2025 Dr. Jhony Arango MD Other Provider Active Star t: March 15, 2025 Dr. Alex Montesinos MD Other Provider Active St art: March 15, 2025 Dr. Franki Jackson MD Other Provider Active Star t: March 15, 2025 Dr. Hever Marrufo DO Other Provider Active St art: March 15, 2025 Dr. Gonzalo Cruz MD Other Provider Active Start: March 15, 2025 Dr. Nenita Armando MD Other Provider Active St art: March 15, 2025 Dr. Aris Black DO Other Provider Active Start: March 15, 2025 Dr. Estevan Govea MD Other Provider Active Star t: March 15, 2025 Dr. Demarco Cervantes MD Other Provider Active Sta rt: March 15, 2025 Accounting Assistant Relationship Specialty Start Date End Date Misbah Elkins MD [address] [place], [place] [id number] PCP - General Internal Medicine 03/26/21 Soila Easton APRN.RN FACULTY [address] [place] [address] Transition Coach Internal Medicine 09/04/24 Accounting Assistant Relationship Specialty Start Date End Date Misbah Elkins MD [address] [place] [address] PCP - General Internal Medicine 03/26/21 Soila Easton, UNA.RN FACULTY [address] [place] [address] Transition Coach Internal Medicine 09/04/24 ProviderElisa MD Transition Coach 03/23/25 04/06/25 Accounting Assistant Relationship Specialty Start Date End Date Misbah Elkins MD [address] [place] [address] PCP - General Internal Medicine 03/26/21 Soila Easton APRN.RN FACULTY [address] [place] [address] Transition Coach Internal Medicine 09/04/24 Elisa Branch MD Transition Coach 03/23/25 04/06/25 Accounting Assistant Relationship Specialty Start Date End Date Misbah Elkins MD [address] [place] [address] PCP - General Internal Medicine 03/26/21 Soila Easton REGIONAL LIAISON.RN FACULTY [address] [place] [address] Transition Coach Internal Medicine 09/04/24 Elisa Branch MD Transition Coach 03/23/25 04/06/25 Accounting Assistant Relationship Specialty Start Date End Date Misbah Elkins MD [address] [place] [address] PCP - General Internal Medicine 03/26/21 Soila Easton, REGIONAL LIAISON.RN FACULTY [address] [place] [address] Transition Coach Internal Medicine 09/04/24 Elisa Branch MD Transition Coach 03/23/25 04/06/25 Accounting Assistant Relationship Specialty Start Date End Date Misbah Elkins MD [address] [place] [address] PCP - General Internal Medicine 03/26/21 Soila Easton, REGIONAL LIAISON.RN FACULTY [address] [place] [address] Transition Coach Internal Medicine 09/04/24 Elisa Branch MD Transition Coach 03/23/25 04/06/25 Accounting Assistant Relationship Specialty Start Date End Date Misbah Elkins MD [address] [place] [address] PCP - General Internal Medicine 03/26/21 Older, UNA Rodriguez.RN FACULTY [address] [place] [address] Transition Coach Internal Medicine 09/04/24 Team Status: Active Member Role/Relationship Status Dates Dr. Misbah Elkins MD Primary Care Provider Active Team Status: Inactive Member Role/Relationship Status Dates Dr. Misbah Elkins MD Primary Care Provider Active Start: December 04, 2024 End: December 12, 2024 Dr. Franco Inman MD Emergency Provider Active S tart: December 04, 2024 End: December 12, 2024 Dr. Aleta Aguayo , Admit Provider Active Start : December 04, 2024 End: December 12, 2024 Dr. Aleta Aguayo DO Other Provider Active Start : December 04, 2024 End: December 12, 2024 Dr. Anastacia Bonilla MD Attending Provider Active Start: December 04, 2024 End: December 12, 2024 Dr. Yrn Kahn , Other Provider Active S tart: December 04, 2024 End: December 12, 2024 Team Status: Active Member Role/Relationship Status Dates Dr. Misbah Elkins MD Primary Care Provider Active Start: [...] t: December 11, 2024 Dr. Gonzalo Sebastian , Other Provider Active Start : December 11, [...] December 11, 2024 Team Status: Active Member Role/Relationship Status Dates Dr. Misbah Elkins MD Primary Care Provider Active Start: [...] December 12, 2024 Dr. Gonzalo Sebastian , Attending Provider Active S tart: December 12, 2024 Team Status: Active Member Role/Relationship Status Dates Dr. Misbah Elkins MD Primary Care Provider Active Start: [...] art: December 12, 2024 Dr. Yrn Kahn DO Other Provider Active S tart: December 12, 2024 Dr. Marshal Segura DO Attending Provider Active Start: December 12, 2024 Team Status: Active Member Role/Relationship Status Dates Dr. Misbah Elkins MD Primary Care Provider Active Start: [...] art: December 12, 2024 Dr. Yrn Kahn DO Other Provider Active S tart: December 12, 2024 Team Status: Inactive Member Role/Relationship Status Dates Dr. Misbah Elkins MD Primary Care Provider Active Start: December 16, 2024 End: December 16, 2024 Dr. Misbah Elkins MD Referring Provider Active Start: December 16, 2024 End: December 16, 2024 RICARDO Corral Attending Provider Active Start: December 16, 2024 End: December 16, 2024 Team Status: Inactive Member Role/Relationship Status Dates Dr. Misbah Elkins MD Primary Care Provider Active Start: December 23, 2024 End: December 23, 2024 Dr. Misbah Elkins MD Referring Provider Active Start: December 23, 2024 End: December 23, 2024 Ani Eduardo PROTECTION ENGINEER, PROTECTION ENGINEER-C Attending Provider Active Start: December 23, 2024 End: December 23, 2024 Team Status: Inactive Member Role/Relationship Status Dates Dr. Misbah Elkins MD Primary Care Provider Active Start: December 24, 2024 End: December 24, 2024 Dr. Mo Velasco DO Attending Provider Active Start : December 24, 2024 End: December 24, 2024 Dr. Mo Velasco DO Emergency Provider Active Start : December 24, 2024 End: December 24, 2024 Team Status: Inactive Member Role/Relationship Status Dates Dr. Misbah Elkins MD Primary Care Provider Active Start: January 01, 2025 End: January 01, 2025 Leandro Sanchez MD Attending Provider Active Star t: January 01, 2025 End: January 01, 2025 Leandro Sanchez MD Referring Provider Active Star t: January 01, 2025 End: January 01, 2025 Leandro Sanchez MD Emergency Provider Active Star t: January 01, 2025 End: January 01, 2025 Team Status: Inactive Member Role/Relationship Status Dates Dr. Misbah Elkins MD Primary Care Provider Active Start: January 27, 2025 End: January 27, 2025 Dr. Franco Inman MD Attending Provider Active S tart: January 27, 2025 End: January 27, 2025 Dr. Franco Inman MD Emergency Provider Active S tart: January 27, 2025 End: January 27, 2025 Team Status: Inactive Member Role/Relationship Status Dates Anat Gutiérrez NP, PROTECTION ENGINEER-C Referring Provider Active Start: February 08, 2025 End: February 08, 2025 Ani Eduardo PROTECTION ENGINEER, PROTECTION ENGINEER-C Attending Provider Active Start: February 08, 2025 End: February 08, 2025 Dr. Misbah Elkins MD Primary Care Provider Active Start: February 08, 2025 End: February 08, 2025 Team Status: Inactive Member Role/Relationship Status Dates Dr. Misbah Elkins MD Primary Care Provider Active Start: February 26, 2025 End: February 26, 2025 Dr. Franco Inman MD Attending Provider Active S tart: February 26, 2025 End: February 26, 2025 Dr. Franco Inman MD Emergency Provider Active S tart: February 26, 2025 End: February 26, 2025 Team Status: Active Member Role/Relationship Status Dates Dr. Misbah Elkins MD Primary Care Provider Active Start: March 13, 2025 Dr. Macario Alex DO Emergency Provider Activ e Start: March 13, 2025 Dr. Pako Fernández MD Attending Provider Active Start: March 13, 2025 Team Status: Inactive Member Role/Relationship Status Dates Dr. Misbah Elkins MD Primary Care Provider Active Start: March 13, 2025 End: March 15, 2025 Dr. Macario Alex DO Emergency Provider Activ e Start: March 13, 2025 End: March 15, 2025 Dr. Pako Fernández MD Admit Provider Active Star t: March 13, 2025 End: March 15, 2025 Dr. Pako Fernández MD Other Provider Active Star t: March 13, 2025 End: March 15, 2025 Dr. Sudhir Izquierdo MD Attending Provider Active Start: March 13, 2025 End: March 15, 2025 Dr. Elton Abraham MD Other Provider Active Start: March 13, 2025 End: March 15, 2025 Dr. Ryan Ortega MD Other Provider Active Start: March 13, 2025 End: March 15, 2025 Dr. Ferddie Perdue MD Other Provider Active Star t: March 13, 2025 End: March 15, 2025 Dr. Gonzalo Sebastian DO Other Provider Active Start : March 13, 2025 End: March 15, 2025 Dr. Jackson Britt MD Other Provider Active Sta rt: March 13, 2025 End: March 15, 2025 Dr. Jacky Perez MD Other Provider Active St art: March 13, 2025 End: March 15, 2025 Dr. Cricket Hoover MD Other Provider Active S tart: March 13, 2025 End: March 15, 2025 Dr. Rajni Avalos MD Other Provider Active Start: March 13, 2025 End: March 15, 2025 Dr. Kahlil Jeff MD Other Provider Active Start : March 13, 2025 End: March 15, 2025 Dr. Warren Anguiano MD Other Provider Active Start: March 13, 2025 End: March 15, 2025 Dr. Jaime Rey MD Other Provider Active Start : March 13, 2025 End: March 15, 2025 Dr. Maria Antonia Salinas MD Other Provider Active Star t: March 13, 2025 End: March 15, 2025 Dr. Michael Mistry MD Other Provider Active Sta rt: March 13, 2025 End: March 15, 2025 Dr. Sylvia Hurt MD Other Provider Active Sta rt: March 13, 2025 End: March 15, 2025 Dr. Jhony Arango MD Other Provider Active Star t: March 13, 2025 End: March 15, 2025 Dr. Alex Montesinos MD Other Provider Active St art: March 13, 2025 End: March 15, 2025 Dr. Franki Jackson MD Other Provider Active Star t: March 13, 2025 End: March 15, 2025 Dr. Hever Marrufo DO Other Provider Active St art: March 13, 2025 End: March 15, 2025 Dr. Gonzalo Cruz MD Other Provider Active Start: March 13, 2025 End: March 15, 2025 Dr. Nenita Armando MD Other Provider Active St art: March 13, 2025 End: March 15, 2025 Dr. Aris Black DO Other Provider Active Start: March 13, 2025 End: March 15, 2025 Dr. Estevan Govea MD Other Provider Active Star t: March 13, 2025 End: March 15, 2025 Dr. Demarco Cervantes MD Other Provider Active Sta rt: March 13, 2025 End: March 15, 2025 Team Status: Active Member Role/Relationship Status Dates Dr. Misbah Elkins MD Primary Care Provider Active Start: March 14, 2025 Dr. Macario Alex DO Emergency Provider Activ e Start: March 14, 2025 Dr. Pako Fernández MD Admit Provider Active Star t: March 14, 2025 Dr. Pako Fernández MD Other Provider Active Star t: March 14, 2025 Dr. Sudhir Izquierdo MD Attending Provider Active Start: March 14, 2025 Dr. Sudhir Izquierdo MD Other Provider Active Start: March 14, 2025 Team Status: Active Member Role/Relationship Status Dates Dr. Misbah Elkins MD Primary Care Provider Active Start: March 15, 2025 Dr. Macario Alex DO Emergency Provider Activ e Start: March 15, 2025 Dr. Pako Fernández MD Admit Provider Active Star t: March 15, 2025 Dr. Pako Fernández MD Other Provider Active Star t: March 15, 2025 Dr. Sudhir Izquierdo MD Referring Provider Active Start: March 15, 2025 Dr. Sudhir Izquierdo MD Other Provider Active Start: March 15, 2025 Dr. Elton Abraham MD Other Provider Active Start: March 15, 2025 Dr. Ryan Ortega MD Other Provider Active Start: March 15, 2025 Dr. Freddie Perdue MD Other Provider Active Star t: March 15, 2025 Dr. Gonzalo Sebastian DO Attending Provider Active S tart: March 15, 2025 Dr. Gonzalo Sebastian DO Other Provider Active Start : March 15, 2025 Dr. Jackson Britt MD Other Provider Active Sta rt: March 15, 2025 Dr. Jacky Perez MD Other Provider Active St art: March 15, 2025 Dr. Cricket Hoover MD Other Provider Active S tart: March 15, 2025 Dr. Rajni Avalos MD Other Provider Active Start: March 15, 2025 Dr. Kahlil Jeff MD Other Provider Active Start : March 15, 2025 Dr. Warren Anguiano MD Other Provider Active Start: March 15, 2025 Dr. Jaime Rey MD Other Provider Active Start : March 15, 2025 Dr. Maria Antonia Salinas MD Other Provider Active Star t: March 15, 2025 Dr. Michael Mistry MD Other Provider Active Sta rt: March 15, 2025 Dr. Sylvia Hurt MD Other Provider Active Sta rt: March 15, 2025 Dr. Jhony Arango MD Other Provider Active Star t: March 15, 2025 Dr. Alex Montesinos MD Other Provider Active St art: March 15, 2025 Dr. Franki Jackson MD Other Provider Active Star t: March 15, 2025 Dr. Hever Marrufo DO Other Provider Active St art: March 15, 2025 Dr. Gonzalo Cruz MD Other Provider Active Start: March 15, 2025 Dr. Nenita Armando MD Other Provider Active St art: March 15, 2025 Dr. Aris Black DO Other Provider Active Start: March 15, 2025 Dr. Estevan Govea MD Other Provider Active Star t: March 15, 2025 Dr. Demarco Cervantes MD Other Provider Active Sta rt: March 15, 2025 Team Status: Active Member Role/Relationship Status Dates Dr. Misbah Elkins MD Primary Care Provider Active Start: March 15, 2025 Dr. Macario Alex DO Emergency Provider Activ e Start: March 15, 2025 Dr. Pako Fernández MD Admit Provider Active Star t: March 15, 2025 Dr. Pako Fernández MD Other Provider Active Star t: March 15, 2025 Dr. Sudhir Izquierdo MD Attending Provider Active Start: March 15, 2025 Dr. Sudhir Izquierdo MD Other Provider Active Start: March 15, 2025 Dr. Elton Abraham MD Other Provider Active Start: March 15, 2025 Dr. Ryan Ortega MD Other Provider Active Start: March 15, 2025 Dr. Freddie Perdue MD Other Provider Active Star t: March 15, 2025 Dr. Gonzalo Sebastian DO Other Provider Active Start : March 15, 2025 Dr. Jackson Britt MD Other Provider Active Sta rt: March 15, 2025 Dr. Jacky Perez MD Other Provider Active St art: March 15, 2025 Dr. Cricket Hoover MD Other Provider Active S tart: March 15, 2025 Dr. Rajni Avalos MD Other Provider Active Start: March 15, 2025 Dr. Kahlil Jeff MD Other Provider Active Start : March 15, 2025 Dr. Warren Anguiano MD Other Provider Active Start: March 15, 2025 Dr. Jaime Rey MD Other Provider Active Start : March 15, 2025 Dr. Maria Antonia Salinas MD Other Provider Active Star t: March 15, 2025 Dr. Michael Mistry MD Other Provider Active Sta rt: March 15, 2025 Dr. Sylvia Hurt MD Other Provider Active Sta rt: March 15, 2025 Dr. Jhony Arango MD Other Provider Active Star t: March 15, 2025 Dr. Alex Montesinos MD Other Provider Active St art: March 15, 2025 Dr. Franki Jackson MD Other Provider Active Star t: March 15, 2025 Dr. Hever Marrufo DO Other Provider Active St art: March 15, 2025 Dr. Gonzalo Cruz MD Other Provider Active Start: March 15, 2025 Dr. Nenita Armando MD Other Provider Active St art: March 15, 2025 Dr. Aris Black DO Other Provider Active Start: March 15, 2025 Dr. Estevan Govea MD Other Provider Active Star t: March 15, 2025 Dr. Demarco Cervantes MD Other Provider Active Sta rt: March 15, 2025 Team Status: Active Member Role/Relationship Status Dates Dr. Misbah Elkins MD Primary Care Provider Active Start: March 16, 2025 Dr. Macario Alex DO Emergency Provider Activ e Start: March 16, 2025 Dr. Pako Fernández MD Admit Provider Active Star t: March 16, 2025 Dr. Pako Fernández MD Other Provider Active Star t: March 16, 2025 Dr. Sudhir Izquierdo MD Attending Provider Active Start: March 16, 2025 Dr. Sudhir Izquierdo MD Other Provider Active Start: March 16, 2025 Dr. Elton Abraham MD Other Provider Active Start: March 16, 2025 Dr. Ryan Ortega MD Other Provider Active Start: March 16, 2025 Dr. Freddie Perdue MD Other Provider Active Star t: March 16, 2025 Dr. Gonzalo Sebastian DO Other Provider Active Start : March 16, 2025 Dr. Jackson Britt MD Other Provider Active Sta rt: March 16, 2025 Dr. Jacky Perez MD Other Provider Active St art: March 16, 2025 Dr. Cricket Hoover MD Other Provider Active S tart: March 16, 2025 Dr. Rajni Avalos MD Other Provider Active Start: March 16, 2025 Dr. Kahlil Jeff MD Other Provider Active Start : March 16, 2025 Dr. Warren Anguiano MD Other Provider Active Start: March 16, 2025 Dr. Jaime Rey MD Other Provider Active Start : March 16, 2025 Dr. Maria Antonia Salinas MD Other Provider Active Star t: March 16, 2025 Dr. Michael Mistry MD Other Provider Active Sta rt: March 16, 2025 Dr. Sylvia Hurt MD Other Provider Active Sta rt: March 16, 2025 Dr. Jhony Arango MD Other Provider Active Star t: March 16, 2025 Dr. Alex Montesinos MD Other Provider Active St art: March 16, 2025 Dr. Franki Jackson MD Other Provider Active Star t: March 16, 2025 Dr. Hever Marrufo DO Other Provider Active St art: March 16, 2025 Dr. Gonzalo Cruz MD Other Provider Active Start: March 16, 2025 Dr. Nenita Armando MD Other Provider Active St art: March 16, 2025 Dr. Aris Black DO Other Provider Active Start: March 16, 2025 Dr. Estevan Govea MD Other Provider Active Star t: March 16, 2025 Dr. Demarco Cervantes MD Other Provider Active Sta rt: March 16, 2025 Team Status: Inactive Member Role/Relationship Status Dates Dr. Misbah Elkins MD Primary Care Provider Active Start: April 10, 2025 End: April 10, 2025 Dr. Misbah Elkins MD Referring Provider Active Start: April 10, 2025 End: April 10, 2025 Ani Eduardo PROTECTION ENGINEER, PROTECTION ENGINEER-C Attending Provider Active Start: April 10, 2025 End: April 10, 2025 Accounting Assistant Relationship Specialty Start Date End Date Misbah Elkins MD [address] [place] [address] PCP - General Internal Medicine 03/26/21 Soila Easton APRN.RN FACULTY [address] [place], [place] [address] Transition Coach Internal Medicine 09/04/24 Accounting Assistant Relationship Specialty Start Date End Date Misbah Elkins MD [address] [place], [place] [address] PCP - General Internal Medicine 03/26/21 Soila Easton APRN.RN FACULTY [address] [place], [place] [id number] Transition Coach Internal Medicine 09/04/24 Goals (unrecognized section and [...] BE BASED ON THE PRIMARY CLINICAL RECORDS. [facility]. provides no warranty or guarantee of the accuracy or completeness of information in this document.
[2025-04-15 23:31] LABS: Hematocrit 33.6 % (37-47); Hemoglobin 10.7 g/dL (12.0-15.0); Immature Granulocytes Count 0.140 X10^3/uL (0.0-0.0); Mean Corp Hgb Conc 31.8 g/dL (32-36); Mean Corpuscular Volume 83.6 fL (81-99); Mean Platelet Vol. 9.5 fl (6.2-12.0); NRBC Flagged by Analyzer 0 % (0-5); Platelet Count 291 K/mm3 (150-450); RBC Distribution Width CV 14.6 % (11.6-14.6); RBC Distribution Width SD 45.1 fl (35.1-43.9); Red Blood Count 4.02 M/mm3 (4.2-5.4); White Blood Count 18.9 K/mm3 (4.4-11.0)
--- NOTE | 2025-04-15 23:48 | CT_ITS ---
PROCEDURE: ABDOMEN/PELVIS W IV CONT ONLY 04/15/2025 REASON FOR EXAM: UPPER ABD PAIN, HAS PANCREATIC STENT TECHNIQUE: ABDOMEN/PELVIS W IV CONT ONLY Coronal and Sagittal reconstruction series were provided. CONTRAST: Isovue 370 VOLUME: 90 mL One or more dose reduction techniques were used (e.g., Automated exposure control, adjustment of the mA and/or kV according to patient size, use of iterative reconstruction technique. RADIATION DOSE SUMMARY: CTDlvol: 34 mGy DLP: 524 mGycm COMPARISON: 03/13/2025 FINDINGS: Lung bases are clear. Normal heart size. Subcentimeter liver cyst. Status post cholecystectomy. Redemonstration of a pancreatic stent in good position. Chronic pancreatitis changes with numerous calcifications. Superimposed acute pancreatitis in the head/uncinate process region with pancreatic swelling and peripancreatic fat stranding. Normal spleen, adrenal glands. Right-sided renal scarring and focal atrophy. Simple left renal cyst. No hydronephrosis or ureteral stone. Normal bladder. Normal uterus and ovaries. No retroperitoneal or pelvic adenopathy. No free air. Nondistended bowel. No signs of appendicitis. No acute large bowel findings. Lumbar spine degeneration. No acute abdominal wall findings. Old fracture at the sacrococcygeal junction. CT/Abdomen/Pelvis W IV Cont ONLY IMPRESSION: Acute on chronic pancreatitis in the pancreatic head/uncinate process. Reading Location: [place] [id number]
[2025-04-15 23:50] LABS: AST(SGOT) 16 U/L (<=31); Alanine Aminotransfer ALT/SGPT 13 U/L (<=34); Albumin, Serum 3.4 g/dL (3.4-4.8); Alkaline Phosphatase 127 U/L (35-104); Anion Gap 11 (5-15); BUN 4 mg/dL (4-19); BUN/Creat Ratio 5.3 RATIO (10-20); Calcium,Total 9.2 mg/dL (7.6-11.0); Carbon Dioxide 27.4 mmol/L (21.0-32.0); Chloride 99 mmol/L (98-108); Estimated Creatinine Clearance 70.83 ml/min (50-250); Globulin 3.5 g/dL (2.2-4.2); Glucose 111 mg/dL (70-99); Lipase 239 U/L (13-75); Potassium 3.6 mmol/L (3.3-5.1)
[2025-04-16] VITALS (15 sets, daily range): BP systolic 113–194; BP diastolic 56–94; PULSE 85–115; RESP 16–18; TEMP 36.2–37.1; O2SAT 95–100; BMI 21.9
[2025-04-16 00:16] LABS: Mucous, Urine 0 SEEN /hpf (<or=2+); Red Blood Cells-Urine 0 SEEN /hpf (0-5)
[2025-04-16 00:18] LABS: Color, Urine Yellow (Yellow); Glucose, Dipstick Normal (Normal); Ketone-Dipstick Negative (Negative); Leukocyte Esterase-Dipstick 25 /ul (Negative); Nitrite-Dipstick Negative (Negative); Occult Blood-Urine Negative /ul (Negative); Protein-Dipstick 15 mg/dl (Negative); Specific Gravity, Urine 1.005 (1.002-1.030); Urine Bilirubin Dipstick Negative (Negative)
[2025-04-16 00:32] LABS: Squamous Epithelial Cells - UA 0-5 SEEN /hpf (5-10)
--- NOTE | 2025-04-16 00:49 | HP.PCM.HOS_ITS ---
[facility] - General General Date of Admission: 04/16/25 Date of Service: 04/16/25 Chief Complaint: Abdominal Pain. HPI Narrative MIR BANUELOS, is a 59 F with a past medical history of essential hypertension; on amlodipine and lisinopril, hyperlipidemia; on simvastatin, history of tobacco abuse for more than 30 years before quitting (02/2025); with subsequent asthma/stage III COPD, chronic hypoxic respiratory failure on 5L NC, remote history of EtOH abuse (quit 2020) with history of chronic pancreatitis, history of pancreatic stent placement at [facility] on March 10, 2025 with patient in the process of transferring her care to Dr. Segura of gastroenterology here, history of stenosis of Left subclavian artery, chronic anemia, depression with anxiety; on aripiprazole and mirtazapine, GERD; on pantoprazole and OA; with chronic back pain on meloxicam and as needed tramadol every 6 hours who presents to [facility] ER complaining of abdominal pain. Ms. Banuelos reports her symptoms began on the evening of April 14, 2025 with the abrupt-onset of pain in the middle of the night and gradually worsened throughout the day and has now become quite severe. She states her pain is better when she lies down but is much worse when she sits up and forward. She states her pain is primarily emanating from her RUQ with radiation into her back with chronic intermittent pain since her recent treatment at [facility] that included pancreatic duct placement with removal of multiple stones - but this is much worse. She states she did not eat any fatty meal or meat last night and she denies recent EtOH intake. She denies related fever, chills, nausea, vomiting, abnormal bowel movements, chest pain, palpitations, heart racing, lower extremity edema, dysuria, hematuria, headache or rash. In the ER she underwent CT of the abdomen and pelvis which revealed Tnwlr-[id number] Pancreatitis in the pancreatic head/uncinate process with corresponding laboratory evidence of elevated lipase of 239 units/L and Leukocytosis of 18.9 K present on admission complicated by Hypertensive Urgency with elevated blood pressure of 194/71 mmHg noted shortly after admission. She was then admitted to the general medical floor for ongoing care for state that is expected to extend beyond 2 midnights. [facility] Medical History (Updated 04/16/25 @ 01:[address] Jackson de Nav, DO) Encounter for replacement of pancreatic stent Stenosis of left subclavian artery Pulmonary nodule Acute hypoxic respiratory failure Chronic pancreatitis Pancreatic stones HLD (hyperlipidemia) History of alcohol abuse Pneumonia Acute on chronic hypoxic respiratory failure Stage 3 severe COPD by GOLD classification Asthma COPD (chronic obstructive pulmonary disease) Arthritis History of back problems Anxiety and depression Chronic pancreatitis HPV (human papilloma virus) infection Anemia Tobacco abuse GERD (gastroesophageal reflux disease) Benign hypertension Home Medications ?Medication ?Instructions ?Recorded ?Last Taken ?Type cholecalciferol (vitamin D3) 50 50 mcg PO DAILY SUPPLE MENT 12/29/18 03/13/25 09:00 History mcg (2,000 unit) capsule 50 mcg aripiprazole 5 mg tablet (Abilify) 5 mg PO DAILY mood 01/22/21 03/13/25 09:00 History 5 mg mirtazapine 45 mg tablet 45 mg PO QHS sleep 01/16/22 03/12/25 21:00 History 45 mg metoprolol tartrate 25 mg tablet 25 mg PO BID 30 days #60 tabs 01/05/24 03/13/25 09:00 Rx 25 mg lisinopril 10 mg tablet 10 mg PO QDAY hypertension 0 01/26/24 03/13/25 09:00 History 10 mg albuterol sulfate 90 mcg/actuation 2 puff inhalation Q 4H PRN 05/11/24 03/13/25 09:00 Rx aerosol inhaler (Ventolin HFA) shortness of breath or wheezing 2 puff #18 grams nicotine 14 mg/24 hr daily 1 patch transdermal ONCE #2 8 ea 12/14/24 Unknown Rx transdermal patch guaifenesin 100 mg/5 mL oral liquid 200 mg (10 mL) PO Q4H PRN 12/16/24 Unknown Rx congestion #473 mL meloxicam 7.5 mg tablet 7.5 mg PO QDAY pain 12/23/24 Unknown History ondansetron 4 mg disintegrating 4 mg PO Q6 PRN nausea/ vomiting 12/23/24 Unknown History tablet Shower chair #1 ea 12/30/24 Unknown Rx ipratropium 0.5 mg-albuterol 3 mg 3 ml inhalation Q4H shortness of 01/04/25 03/13/25 09:00 Rx (2.5 mg base)/3 mL nebulization breath or wheezing #36 0 mL 3 mL soln gabapentin 300 mg capsule 300 mg PO BID nerve pain 03/13/25 09:00 History 300 mg ondansetron 4 mg disintegrating 4 mg PO Q8H PRN PRN Na usea #12 tabs 02/26/25 Unknown Rx tablet albuterol sulfate 2.5 mg/3 mL 2.5 mg continuous nebuli zation PRN 03/13/25 03/13/25 09:00 History (0.083 %) solution for nebulization COPD 2.5 mg amlodipine 5 mg tablet 5 mg PO DAILY hypertension 0 03/13/25 03/13/25 09:00 History 5 mg pantoprazole 40 mg tablet,delayed 40 mg PO DAILY acid reflux 03/13/25 03/13/25 09:00 History release 40 mg simvastatin 20 mg tablet 20 mg PO QHS high cholestero l 03/13/25 03/12/25 21:00 History 20 mg budesonide 160 mcg-glycopyr 9 2 inh inhalation BID #10 .7 grams 04/10/25 Unknown Rx mcg-formot 4.8 mcg/actuation HFA inhaler (Breztri Aerosphere) hydroxyzine pamoate 25 mg capsule 25 mg PO QDAY PRN an xiety 04/10/25 Unknown History tramadol 50 mg tablet 50 mg PO Q6 PRN pain 5 Unknown History Allergy/AdvReac Type Severity Reaction Status Date / Time clindamycin Allergy Intermediate Hives Verified 04/15/25 22:49 Penicillins Allergy Hives Verified 04/15/25 22:49 sulfamethoxazole (From Allergy Other Verified 04/15/25 22:49 Bactrim) trimethoprim (From Bactrim) Allergy Other Verified 04/15/25 22:49 hydrocodone (From [place]) AdvReac Itching Verified 04/15/25 22:49 Family History Mother Diabetes Hypertension Heart disease High cholesterol Arthritis Thyroid disorder Brother Hypertension Sister Cancer cervical Thyroid disorder Father Kidney disease Daughter Thyroid disorder Surgical History History of tubal ligation History of colonoscopy History of appendectomy Social History household members: family Smoking Status: Former smoker quit date: 03/25/25 Tobacco: How many years used: 30 second hand exposure: Yes alcohol intake: former details: Sober since 2020. substance use type: does not use caffeine: Yes ROS ROS Narrative Review of Systems: Constitutional: Patient denies fever or chills. Eyes: Patient denies changes in vision or discharge from eyes. ENT: Patient denies runny nose, sore throat or ear pain. Resp: Patient denies acute increase in her chronic shortness of breath and she denies cough or wheezing. CV: Patient denies chest pain, palpitations, heart racing or lower extremity edema. GI: Patient admits to abdominal pain primarily from her RUQ radiating to her back but she denies nausea, vomiting, diarrhea or constipation. : Patient denies dysuria, hematuria urinary frequency. MSK: Patient admits to back pain but she denies neck pain. Skin: Patient denies rash, abscess, wounds or jaundice. Psych: Patient denies symptoms uncontrolled depression or anxiety. Neuro: Patient denies headache, paresthesias or focal neurologic deficits. Allergy: Patient denies lip swelling, tongue swelling or urticaria. Hematology: Patient denies easy bleeding or easy bruisability. Endocrinology: Patient denies polyuria, polydipsia, polyphagia or heat/cold intolerance. 14 point ROS otherwise negative except for positives noted above in HPI. Vital Signs Vital Signs Vital Signs: 04/15/25 22:49 Temperature 97.4 F L Temperature Source Temporal Pulse Rate 102 H Respiratory Rate 24 H Blood Pressure 122/86 H Blood Pressure Mean 98 Pulse Ox 92 Oxygen Delivery Method Nasal Cannula Oxygen Flow Rate (L/min) 4 Weight Weight: 126 lb 15.78 oz Body Mass Index (BMI) 22.4 Physical Exam Const alert, oriented x3, no apparent distress and average body habitus General Appearance: cooperative HEENT normocephalic, head/scalp atraumatic, hearing grossly normal bilaterally and moist oral mucous membranes Eyes PERRL, EOMs intact bilaterally and conjunctivae normal Neck no lymphadenopathy, supple and no JVD Resp Resp Narrative: Diminished breath sounds throughout. Cardio regular rate and regular rhythm GI GI Narrative: Mild diffuse tenderness focused in the RUQ and epigastrium that is moderate to severe. No rebound tenderness or guarding noted. Normoactive bowel sounds also noted. Extremity normal to inspection, full ROM and no clubbing, cyanosis or edema Skin Skin Narrative: Patient has no evidence of rash, abscess, wounds or jaundice. Neuro oriented x3, CN's II-XII intact bilaterally, moves all extremities and no focal motor deficits Sensorium / Orientation: awake, alert, oriented to person, oriented to place and oriented to time Speech: speech normal Psych affect normal Results Medical Records Data Attestation: I reviewed the patient's medical records Lab / Micro Data Attestation: I reviewed the patient's lab results. 04/16/25 05:30 04/15/25 23:25 Labs: Laboratory Results - last 24 hr 04/15/25 23:25: WBC 18.9 H, RBC 4.02 L, Hgb 10.7 L, Hct 33.6 L, MCV 83.6, MCH 26.6 L, MCHC 31.8 L, RDW Std Deviation 45.1 H, RDW Coeff of Min 14.6, Plt Count 291, MPV 9.5, Immature Gran % (Auto) 0.700, Neut % (Auto) 72.4 H, Lymph % (Auto) 14.6 L, Bailey % (Auto) 7.0, Eos % (Auto) 4.9, Baso % (Auto) 0.4, Absolute Neuts (auto) 13.6 H, Absolute Lymphs (auto) 2.76, Nucleated RBC % 0, Sodium 138, Potassium 3.6, Chloride 99, Carbon Dioxide 27.4, Anion Gap 11, BUN 4, Creatinine 0.69 L, Estim Creat Clear Calc 70.83, Est GFR (MDRD) Non-Af 99, BUN/Creatinine Ratio 5.3 L, Glucose 111 H, Calcium 9.2, Total Bilirubin < 0.15, AST 16, ALT 13, Alkaline Phosphatase 127 H, Total Protein 6.9, Albumin 3.4, Globulin 3.5, Albumin/Globulin Ratio 1.0, Lipase 239 H 04/16/25 00:11: Urine Color Yellow, Urine Clarity Clear, Urine pH 7.0, Ur Specific [place] 1.005, Urine Protein 15 H, Urine Glucose (UA) Normal, Urine Ketones Negative, Urine Occult Blood Negative, Urine Nitrite Negative, Urine Bilirubin Negative, Urine Urobilinogen Normal, Ur Leukocyte Esterase 25 H, Urine RBC 0 SEEN, Urine WBC 0-5 SEEN, Ur Squamous Epith Cells 0-5 SEEN, Urine Bacteria 0 SEEN, Urine Mucus 0 SEEN Imaging Radiology Impression Abdomen/Pelvis CT 04/15/25 23:48 IMPRESSION: Acute on chronic pancreatitis in the pancreatic head/uncinate process. Reading Location: [place] [address] Assessment & Plan Assessment/Plan (1) Acute on chronic pancreatitis: (2) Leukocytosis: QUALIFIERS: Leukocytosis type: unspecified Qualified Code(s): D 72.829 - Elevated white blood cell count, unspecified (3) Hypertensive urgency: (4) Presence of pancreatic duct stent: (5) History of alcohol abuse: (6) History of tobacco abuse: (7) COPD (chronic obstructive pulmonary disease): QUALIFIERS: COPD type: emphysema Emphysema type: centrilobular Q ualified Code(s): J43.2 - Centrilobular emphysema PLAN: Plan 1. CT of the abdomen and pelvis which revealed [id number] Pancreatitis in the pancreatic head/uncinate process with corresponding laboratory evidence of elevated lipase of 239 units/L - Admit to general medical floor. Keep strict NPO. Give pantoprazole 40 mg IV daily. Give ondansetron IV as needed nausea vomiting. Give promethazine IM as needed for breakthrough nausea. Give ketorolac IV for [id number] (level 1-5/10) pain or fever. Give morphine IV as needed for severe (level 6-10/10) pain. Check MRCP. Finally, we will consult gastroenterology to see this patient on rounds in the a.m. for further recommendations with help appreciated in advance. 2. Leukocytosis of 18.9 K present on admission suspected to be due to acute stress response arising from #1 with no obvious identifiable source of infection at this time - Check CBC daily to follow trend. 3. Hypertensive Urgency with elevated blood pressure of 194/71 mmHg noted shortly after admission likely due to #1 - Hold oral antihypertensives and give hydralazine IV as needed for systolic blood pressure greater than 160 mmHg. 4. History of pancreatic stent placement at [facility] on March 10, 2025 with patient in the process of transferring her care to Dr. Segura of gastroenterology here adding to the medical complexity of #1 - #3 - Noted with the patient not actually having been seen by Dr. Segura as of yet. 5. Remote history of EtOH abuse (quit 2020) with history of chronic pancreatitis adding to the burden of disease outlined from #1 - #4 - Check JOLANTA ad UDS to confirm sobriety. 6. History of tobacco abuse for more than 30 years before quitting (02/2025); with subsequent asthma/stage III COPD, chronic hypoxic respiratory failure on ~4-5L NC - Stable with no evidence of acute flare at this time. Continue as needed nebulizers. 7. Essential hypertension; on amlodipine and lisinopril - Hold oral antihypertensives as noted above and give hydralazine IV as needed for systolic pressure greater than 160 mmHg. 8. Hyperlipidemia; on simvastatin - Hold statin and check lipid profile in case of underlying hypertriglyceridemia as a cause for #1. 9. History of stenosis of Left subclavian artery - Noted. 10. Chronic anemia - Apparently stable with hemoglobin of 10.7 g/dL and MCV of 83.6 fL present on admission. 11. Depression with anxiety; on aripiprazole and mirtazapine - Hold oral medications until patient can safely tolerate oral intake. 12. GERD; on pantoprazole - Patient switched to PPI as outlined in #1. 13. OA; with chronic back pain on meloxicam and as needed tramadol every 6 hours - We will follow pain regimen and scale as outlined in #1. 14. DVT/GI prophylaxis - Enoxaparin 40 mg subcu daily plus SCDs. Pantoprazole 40 mg IV daily. Total time: Approximately (midnight less than) 75 minutes. Charges/Coding Visit Charges Inpatient E&M: 34937 Init Hosp L3
[2025-04-16 01:53] LABS: Magnesium 1.5 mg/dL (1.5-2.2)
[2025-04-16] MEDS: 0.9% Normal Saline (1000mL) 1,000 ML 125 ML IV ×2 (02:47→09:37)
[2025-04-16] MEDS: Pantoprazole Sodium 40 MG in 0.9% Normal Saline (100mL MB+) 100 ML 330 MG IV ×2 (02:53→22:31)
[2025-04-16 02:55] LABS: Alcohol, Blood (Medical)-Serum < 10.1 mg/dL (<=10.0)
[2025-04-16 03:49] LABS: Barbiturate Urine NEGATIVE (< 200 ng/mL); Benzodiazepine Urine NEGATIVE (< 200 ng/mL); PCP Urine NEGATIVE (< 25 ng/mL); THC Urine NEGATIVE (< 50 ng/mL)
[2025-04-16 05:56] LABS: Hematocrit 30.1 % (37-47); Hemoglobin 9.3 g/dL (12.0-15.0); Immature Granulocytes Count 0.090 X10^3/uL (0.0-0.0); Mean Corp Hgb Conc 30.9 g/dL (32-36); Mean Corpuscular Volume 86.2 fL (81-99); Mean Platelet Vol. 9.7 fl (6.2-12.0); NRBC Flagged by Analyzer 0 % (0-5); Platelet Count 275 K/mm3 (150-450); RBC Distribution Width CV 14.7 % (11.6-14.6); RBC Distribution Width SD 46.5 fl (35.1-43.9); Red Blood Count 3.49 M/mm3 (4.2-5.4); White Blood Count 15.3 K/mm3 (4.4-11.0)
[2025-04-16 06:33] LABS: FOLATES,SERUM (FOLIC ACID) 10.50 ng/mL (4.60-34.80)
[2025-04-16 06:34] LABS: Cholesterol 128 mg/dL (<=200); Low Density Lipoprotein Calc. 58 mg/dL; Triglycerides 122 mg/dL; Very Low Density Lipoprotein 24 mg/dL (5-40); Vitamin B12 415 pg/mL (180-914); cholesterol:hdl ratio screen 2.78
[2025-04-16 06:39] LABS: AST(SGOT) 12 U/L (<=31); Alanine Aminotransfer ALT/SGPT 11 U/L (<=34); Albumin, Serum 3.0 g/dL (3.4-4.8); Alkaline Phosphatase 114 U/L (35-104); Anion Gap 11 (5-15); Calcium,Total 8.7 mg/dL (7.6-11.0); Carbon Dioxide 24.6 mmol/L (21.0-32.0); Chloride 103 mmol/L (98-108); Estimated Creatinine Clearance 85.74 ml/min (50-250); Globulin 3.2 g/dL (2.2-4.2); Glucose 102 mg/dL (70-99); Potassium 3.7 mmol/L (3.3-5.1)
[2025-04-16 06:45] LABS: BUN 3 mg/dL (4-19); BUN/Creat Ratio 5.0 RATIO (10-20)
[2025-04-16] MEDS: Budesonide Respules 0.5 MG/2 ML AMPUL.NEB. INHALATION ×2 (07:28→19:30)
--- NOTE | 2025-04-16 15:03 | PCM.PN.HOSP ---
Reason for Visit Chief Complaint: Abdominal Pain. Objective Data Objective Data Vital Signs: Vital Signs Temp Pulse Resp BP Pulse Ox O2 Del Method O2 Flow Rate 97.8 F 114 H 18 113/74 97 Nasal Cannula 4 04/16/25 14:02 04/16/25 14:02 04/16/25 14:02 04/16/25 14:02 04/16/25 14:02 04/16/25 14:02 04/16/25 14:02 Oxygen Flow Rate (L/min) 4 Oxygen Delivery Method Nasal Cannula Weight: 123 lb 14.397 oz Body Mass Index (BMI) 21.9 Intake & Output: Intake and Output for Last 24 Hours 04/14/25 04/15/25 04/16/25 23:59 23:59 23:59 Intake Total 1489.59 / 1489.59 Balance 1489.59 / 1489.59 Lab / Micro Data 04/16/25 05:30 04/16/25 05:30 Labs: Laboratory Results - last 24 hr 04/15/25 23:25: WBC 18.9 H, RBC 4.02 L, Hgb 10.7 L, Hct 33.6 L, MCV 83.6, MCH 26.6 L, MCHC 31.8 L, RDW Std Deviation 45.1 H, RDW Coeff of Min 14.6, Plt Count 291, MPV 9.5, Immature Gran % (Auto) 0.700, Neut % (Auto) 72.4 H, Lymph % (Auto) 14.6 L, [place] % (Auto) 7.0, Eos % (Auto) 4.9, Baso % (Auto) 0.4, Absolute Neuts (auto) 13.6 H, Absolute Lymphs (auto) 2.76, Nucleated RBC % 0, Sodium 138, Potassium 3.6, Chloride 99, Carbon Dioxide 27.4, Anion Gap 11, BUN 4, Creatinine 0.69 L, Estim Creat Clear Calc 70.83, Est GFR (MDRD) Non-Af 99, BUN/Creatinine Ratio 5.3 L, Glucose 111 H, Calcium 9.2, Magnesium 1.5, Total Bilirubin < 0.15, AST 16, ALT 13, Alkaline Phosphatase 127 H, Total Protein 6.9, Albumin 3.4, Globulin 3.5, Albumin/Globulin Ratio 1.0, Lipase 239 H, Ethyl Alcohol < 10.1 04/16/25 00:11: Urine Color Yellow, Urine Clarity Clear, Urine pH 7.0, Ur Specific [place] 1.005, Urine Protein 15 H, Urine Glucose (UA) Normal, Urine Ketones Negative, Urine Occult Blood Negative, Urine Nitrite Negative, Urine Bilirubin Negative, Urine Urobilinogen Normal, Ur Leukocyte Esterase 25 H, Urine RBC 0 SEEN, Urine WBC 0-5 SEEN, Ur Squamous Epith Cells 0-5 SEEN, Urine Bacteria 0 SEEN, Urine Mucus 0 SEEN, Urine Opiates Screen PRESUMPTIVE POSITIVE, U Buprenorphine Qual NEGATIVE, Ur Oxycodone Screen NEGATIVE, Urine Methadone Screen NEGATIVE, Urine Fentanyl Screen NEGATIVE, Ur Barbiturates Screen NEGATIVE, Ur Phencyclidine Scrn NEGATIVE, Ur Amphetamines Screen NEGATIVE, U Benzodiazepines Scrn NEGATIVE, Urine Cocaine Screen NEGATIVE, U Cannabinoids Screen NEGATIVE 04/16/25 05:30: WBC 15.3 H, RBC 3.49 L, Hgb 9.3 L, Hct 30.1 L, MCV 86.2, MCH 26.6 L, MCHC 30.9 L, RDW Std Deviation 46.5 H, RDW Coeff of Min 14.7 H, Plt Count 275, MPV 9.7, Immature Gran % (Auto) 0.600, Neut % (Auto) 74.2 H, Lymph % (Auto) 14.2 L, [place] % (Auto) 7.0, Eos % (Auto) 3.7, Baso % (Auto) 0.3, Absolute Neuts (auto) 11.4 H, Absolute Lymphs (auto) 2.17, Nucleated RBC % 0, Sodium 139, Potassium 3.7, Chloride 103, Carbon Dioxide 24.6, Anion Gap 11, BUN 3 L, Creatinine 0.57 L, Estim Creat Clear Calc 85.74, Est GFR (MDRD) Non-Af 103, BUN/Creatinine Ratio 5.0 L, Glucose 102 H, Calcium 8.7, Phosphorus 4.4, Total Bilirubin < 0.15, AST 12, ALT 11, Alkaline Phosphatase 114 H, Total Protein 6.2, Albumin 3.0 L, Globulin 3.2, Albumin/Globulin Ratio 0.9, Triglycerides 122, Cholesterol 128, LDL Cholesterol, Calc 58, VLDL Cholesterol 24, HDL Cholesterol 46, Cholesterol/HDL Ratio 2.78, Vitamin B12 415, Serum Folate 10.50, TSH 1.340 Radiography Diagnostic Testing: Radiology Impression Abdomen/Pelvis CT 04/15/25 23:48 IMPRESSION: Acute on chronic pancreatitis in the pancreatic head/uncinate process. Reading Location: [place] [id number] Physical Exam Narrative Seen and examined. Admitted for acute on chronic pancreatitis She was admitted last time in second week of February and at that time she had a fluid overload resulting into respiratory failure, intubation and then transferred to [facility]. Patient is very concerned of fluid overload at this time. She complained of pain 7-8 in right lower quadrant though she is tender all over. No fever. She had a pancreatic stent in the past in [facility] by Dr. Portillo. She also had pain injection probably in celiac block but she states she has injection in the pancreas Physical exam General: Alert, Oriented x3, Cooperative HEENT: Atraumatic, PERRLA, EOMI, Normocephalic. Oral: No Gingival or Mucosal Lesions/ Ulcerations Neck: Supple, No JVD, Negative Carotid Bruits Chest wall/Lungs: Air entry diminished in bilateral lung bases. No crepitation/rhonchi Cardiovascular: Regular rate and rhythm, Normal S1,S2, No M/G/R Abdomen: Bowel Sounds Present, Soft, tenderness present in right upper and lower quadrant. Tenderness present in paraspinal lumbar, L1-L2 on left side : No dysuria. No renal angle tenderness. No suprapubic tenderness. Extremities: No edema, Capillary Refill Less than 3 Seconds Skin: No rashes, No breakdown Musculoskeletal: No Tenderness to Palpation of Joints or Extremities Neurological: Cranial nerves II-XII grossly intact, DTR 2+/4. No acute focal neurological deficit. Psych/Mental Status: Normal Affect, Appropriate. Assessment & Plan Assessment/Plan (1) Acute on chronic pancreatitis: (2) Leukocytosis: QUALIFIERS: Leukocytosis type: unspecified Qualified Code(s): D72.829 - Elevated white blood cell count, unspecified (3) Hypertensive urgency: (4) Presence of pancreatic duct stent: (5) History of alcohol abuse: (6) History of tobacco abuse: (7) COPD (chronic obstructive pulmonary disease): QUALIFIERS: COPD type: emphysema Emphysema type: centrilobular Qualified Code(s): J43.2 - Centrilobular emphysema PLAN: Plan 59-year-old female admitted with abdominal pain and night before admission. History of chronic pancreatitis with pancreatic stent on 03/11/[address] Portillo in [facility]. She was discharged on 03/15/transferred to [facility]. 1. Acute on chronic pancreatitis: CT abdomen initially reviewed which shows chronic pancreatitis changes with numerous calcification with superimposed acute pancreatitis in head and uncinate process with pancreatic swelling and peripancreatic fat stranding. She has pancreatic duct stent. Patient stated she quit smoking and drinking alcohol 10 months ago. Patient is very apprehensive of fluid overload therefore IV fluid cut down to 75 mg daily per hour with clear liquid. [place] criteria is 2 point though LDH not available and ordered. I think that is 1% predicted mortality. IV morphine for pain control. Continue IV PPI 2. Hypertensive Urgency with elevated blood pressure of 194/71 mmHg noted shortly after admission: BP fluctuates. Currently 113/74. Heart rate 114/min it was 190/71 last midnight. Clonidine 0.2 mg p.o. twice daily ordered. IV labetalol ordered. Will avoid IV hydralazine because it can cause tachycardia. 3. Dyslipidemia on simvastatin. Fasting profile shows LDL 58, TC 128, TG 122.. 4. Recently quit alcohol smoking: B12 415. Folate 2.5. TSH 1.34. 5 6. Hyperlipidemia; on simvastatin - Hold statin and check lipid profile in case of underlying hypertriglyceridemia as a cause for #1. . Anemia of chronic disease: H&H 10.6/33.6%, normocytic on admission. Repeat hemoglobin 9.3/hematocrit 30%. No significant drop. History of chronic stenosis left subclavian artery Anxiety and depression GERD on pantoprazole, osteoarthritis with chronic back pain on meloxicam: Hold NSAID/meloxicam. History of stenosis of Left subclavian artery - Noted. DVT/GI prophylaxis - Enoxaparin 40 mg subcu daily plus SCDs. Pantoprazole 40 mg IV daily. Laboratory Results 04/15/25 23:25: WBC 18.9 H, RBC 4.02 L, Hgb 10.7 L, Hct 33.6 L, MCV 83.6, MCH 26.6 L, MCHC 31.8 L, RDW Std Deviation 45.1 H, RDW Coeff of Min 14.6, Plt Count 291, MPV 9.5, Immature Gran % (Auto) 0.700, Neut % (Auto) 72.4 H, Lymph % (Auto) 14.6 L, [place] % (Auto) 7.0, Eos % (Auto) 4.9, Baso % (Auto) 0.4, Absolute Neuts (auto) 13.6 H, Absolute Lymphs (auto) 2.76, Nucleated RBC % 0, Sodium 138, Potassium 3.6, Chloride 99, Carbon Dioxide 27.4, Anion Gap 11, BUN 4, Creatinine 0.69 L, Estim Creat Clear Calc 70.83, Est GFR (MDRD) Non-Af 99, BUN/Creatinine Ratio 5.3 L, Glucose 111 H, Calcium 9.2, Magnesium 1.5, Total Bilirubin < 0.15, AST 16, ALT 13, Alkaline Phosphatase 127 H, Total Protein 6.9, Albumin 3.4, Globulin 3.5, Albumin/Globulin Ratio 1.0, Lipase 239 H, Ethyl Alcohol < 10.1 04/16/25 00:11: Urine Color Yellow, Urine Clarity Clear, Urine pH 7.0, Ur Specific [place] 1.005, Urine Protein 15 H, Urine Glucose (UA) Normal, Urine Ketones Negative, Urine Occult Blood Negative, Urine Nitrite Negative, Urine Bilirubin Negative, Urine Urobilinogen Normal, Ur Leukocyte Esterase 25 H, Urine RBC 0 SEEN, Urine WBC 0-5 SEEN, Ur Squamous Epith Cells 0-5 SEEN, Urine Bacteria 0 SEEN, Urine Mucus 0 SEEN, Urine Opiates Screen PRESUMPTIVE POSITIVE, U Buprenorphine Qual NEGATIVE, Ur Oxycodone Screen NEGATIVE, Urine Methadone Screen NEGATIVE, Urine Fentanyl Screen NEGATIVE, Ur Barbiturates Screen NEGATIVE, Ur Phencyclidine Scrn NEGATIVE, Ur Amphetamines Screen NEGATIVE, U Benzodiazepines Scrn NEGATIVE, Urine Cocaine Screen NEGATIVE, U Cannabinoids Screen NEGATIVE 04/16/25 05:30: WBC 15.3 H, RBC 3.49 L, Hgb 9.3 L, Hct 30.1 L, MCV 86.2, MCH 26.6 L, MCHC 30.9 L, RDW Std Deviation 46.5 H, RDW Coeff of Min 14.7 H, Plt Count 275, MPV 9.7, Immature Gran % (Auto) 0.600, Neut % (Auto) 74.2 H, Lymph % (Auto) 14.2 L, [place] % (Auto) 7.0, Eos % (Auto) 3.7, Baso % (Auto) 0.3, Absolute Neuts (auto) 11.4 H, Absolute Lymphs (auto) 2.17, Nucleated RBC % 0, Sodium 139, Potassium 3.7, Chloride 103, Carbon Dioxide 24.6, Anion Gap 11, BUN 3 L, Creatinine 0.57 L, Estim Creat Clear Calc 85.74, Est GFR (MDRD) Non-Af 103, BUN/Creatinine Ratio 5.0 L, Glucose 102 H, Calcium 8.7, Phosphorus 4.4, Total Bilirubin < 0.15, AST 12, ALT 11, Alkaline Phosphatase 114 H, Total Protein 6.2, Albumin 3.0 L, Globulin 3.2, Albumin/Globulin Ratio 0.9, Triglycerides 122, Cholesterol 128, LDL Cholesterol, Calc 58, VLDL Cholesterol 24, HDL Cholesterol 46, Cholesterol/HDL Ratio 2.78, Vitamin B12 415, Serum Folate 10.50, TSH 1.340 Charges/Coding Visit Charges Inpatient E&M: 34965 Subs Hosp L2
[2025-04-16 16:08] LABS: LDH 160 U/L (84-246)
[2025-04-16] MEDS: hydrOXYzine PAM 25 MG Capsule PO (22:31)
[2025-04-17] VITALS (10 sets, daily range): BP systolic 92–149; BP diastolic 64–115; PULSE 77–105; RESP 16–19; TEMP 36.7–36.8; O2SAT 89–98; BMI 22.2
[2025-04-17] MEDS: 0.9% Saline Lock 10 ML Syringe IV ×2 (02:49→06:53)
[2025-04-17] MEDS: Budesonide Respules 0.5 MG/2 ML AMPUL.NEB. INHALATION ×2 (06:50→18:55)
[2025-04-17 08:13] LABS: LDH 145 U/L (84-246)
[2025-04-17 09:39] LABS: Hematocrit 28.3 % (37-47); Hemoglobin 8.9 g/dL (12.0-15.0); Immature Granulocytes Count 0.080 X10^3/uL (0.0-0.0); Mean Corp Hgb Conc 31.4 g/dL (32-36); Mean Corpuscular Volume 85.2 fL (81-99); Mean Platelet Vol. 10.3 fl (6.2-12.0); NRBC Flagged by Analyzer 0 % (0-5); Platelet Count 310 K/mm3 (150-450); RBC Distribution Width CV 14.9 % (11.6-14.6); RBC Distribution Width SD 46.7 fl (35.1-43.9); Red Blood Count 3.32 M/mm3 (4.2-5.4); White Blood Count 12.7 K/mm3 (4.4-11.0)
[2025-04-17 10:11] LABS: Lipase 90 U/L (13-75)
[2025-04-17 10:12] LABS: AST(SGOT) 11 U/L (<=31); Alanine Aminotransfer ALT/SGPT 9 U/L (<=34); Albumin, Serum 3.0 g/dL (3.4-4.8); Alkaline Phosphatase 113 U/L (35-104); Anion Gap 12 (5-15); BUN 4 mg/dL (4-19); BUN/Creat Ratio 7.7 RATIO (10-20); Calcium,Total 9.1 mg/dL (7.6-11.0); Carbon Dioxide 26.9 mmol/L (21.0-32.0); Chloride 101 mmol/L (98-108); Estimated Creatinine Clearance 85.74 ml/min (50-250); Globulin 3.0 g/dL (2.2-4.2); Glucose 107 mg/dL (70-99); Potassium 3.8 mmol/L (3.3-5.1)
--- NOTE | 2025-04-17 10:53 | CASEMGMT ---
SARWAT LOMELI Assessment: Face to Face with pt for initial transition planning/care coordination assessment. SARWAT LOMELI introduced self and role at [facility], pt voices understanding and consents to assessment. Pt is A&O x4 and answers all questions appropriately at this time. Care providers, pharmacy, and demographics verified/updated. Strata:3 Admitting Dx: Acute on chronic pancreatitis with leukocytosis. PCP: [facility] Specialists: Romulo, Prototype Carpenter; GI at [facility], planning on transferring care to [facility] GI. [facility] Insurance: [employer] Prescription Benefit: yes LNOK: Sister, Domonique; Daughter, Caitie Living Arrangements: Pt lives with adult son and daughter in a 2 story home with 5 steps to enter. ADLs: Pt states she is I at home with ADLs. Transportation: Pt daughter provides transportation, pt also uses hospital van and [id number]. DME: walker, shower bench, raised toilet seat. Pulse ox, Home O2 through [facility]. Portable O2 in the room. HHC/SNF: Denies history of Pt states no concerns with going home at time of dc. Pt states no further concerns/needs. CM to follow. Advised pt to ask CM if any further question/concerns/needs arise, voices understanding. Pt Goal: Home Plan: Home with family support. Follow up with Pt at time of DC to see if pt needs assistance with transportation. Follow for O2 changes. Buzz FAM CM
--- NOTE | 2025-04-17 16:40 | PCM.PN.HOSP ---
Reason for Visit Chief Complaint: Abdominal Pain. Objective Data Objective Data Vital Signs: Vital Signs Temp Pulse Resp BP Pulse Ox O2 Del Method O2 Flow Rate 98.1 F 93 19 H 122/101 H 98 Nasal Cannula 4 04/17/25 14:40 04/17/25 14:40 04/17/25 14:40 04/17/25 14:40 04/17/25 14:40 04/17/25 14:40 04/17/25 14:40 Oxygen Flow Rate (L/min) 4 Oxygen Delivery Method Nasal Cannula Weight: 125 lb 10.616 oz Body Mass Index (BMI) 22.2 Intake & Output: Intake and Output for Last 24 Hours 04/15/25 04/16/25 04/17/25 23:59 23:59 23:59 Intake Total 2957.09 / 2957.09 480 / 480 Balance 2957.09 / 2957.09 480 / 480 Lab / Micro Data 04/17/25 06:49 04/17/25 06:49 Labs: Laboratory Results - last 24 hr 04/17/25 06:49: WBC 12.7 H, RBC 3.32 L, Hgb 8.9 L, Hct 28.3 L, MCV 85.2, MCH 26.8 L, MCHC 31.4 L, RDW Std Deviation 46.7 H, RDW Coeff of Min 14.9 H, Plt Count 310, MPV 10.3, Immature Gran % (Auto) 0.600, Neut % (Auto) 69.0, Lymph % (Auto) 16.6 L, [place] % (Auto) 8.3, Eos % (Auto) 5.0, Baso % (Auto) 0.5, Absolute Neuts (auto) 8.8 H, Absolute Lymphs (auto) 2.11, Nucleated RBC % 0, Sodium 139, Potassium 3.8, Chloride 101, Carbon Dioxide 26.9, Anion Gap 12, BUN 4, Creatinine 0.57 L, Estim Creat Clear Calc 85.74, Est GFR (MDRD) Non-Af 103, BUN/Creatinine Ratio 7.7 L, Glucose 107 H, Calcium 9.1, Total Bilirubin 0.18, AST 11, ALT 9, Alkaline Phosphatase 113 H, Lactate Dehydrogenase 145, Total Protein 6.0, Albumin 3.0 L, Globulin 3.0, Albumin/Globulin Ratio 1.0, Lipase 90 H Physical Exam Narrative Seen and examined. Her abdominal pain is better. She tolerated full liquid diet. Advance to soft transitional diet. Admitted for acute on chronic pancreatitis She was admitted last time in second week of February and at that time she had a fluid overload resulting into respiratory failure, intubation and then transferred to [facility]. Patient is very concerned of fluid overload at this time. She complained of pain 7-8 in right lower quadrant though she is tender all over. No fever. She had a pancreatic stent in the past in [facility] by Dr. Portillo. She also had pain injection probably in celiac block but she states she has injection in the pancreas Physical exam General: Alert, Oriented x3, Cooperative HEENT: Atraumatic, PERRLA, EOMI, Normocephalic. Oral: No Gingival or Mucosal Lesions/ Ulcerations Neck: Supple, No JVD, Negative Carotid Bruits Chest wall/Lungs: Air entry diminished in bilateral lung bases. No crepitation/rhonchi Cardiovascular: Regular rate and rhythm, Normal S1,S2, No M/G/R Abdomen: Bowel Sounds Present, Soft, mild tenderness present in right upper and lower quadrant. No tenderness in paralumbar area : No dysuria. No renal angle tenderness. No suprapubic tenderness. Extremities: No edema, Capillary Refill Less than 3 Seconds Skin: No rashes, No breakdown Musculoskeletal: No Tenderness to Palpation of Joints or Extremities Neurological: Cranial nerves II-XII grossly intact, DTR 2+/4. No acute focal neurological deficit. Psych/Mental Status: Normal Affect, Appropriate. Assessment & Plan Assessment/Plan (1) Acute on chronic pancreatitis: (2) Leukocytosis: QUALIFIERS: Leukocytosis type: unspecified Qualified Code(s): D72.829 - Elevated white blood cell count, unspecified (3) Hypertensive urgency: (4) Presence of pancreatic duct stent: (5) History of alcohol abuse: (6) History of tobacco abuse: (7) COPD (chronic obstructive pulmonary disease): QUALIFIERS: COPD type: emphysema Emphysema type: centrilobular Qualified Code(s): J43.2 - Centrilobular emphysema PLAN: Plan 59-year-old female admitted with abdominal pain and night before admission. History of chronic pancreatitis with pancreatic stent on 03/11/[address] Portillo in [facility]. She was discharged on 03/15/transferred to [facility]. 1. Acute on chronic pancreatitis: CT abdomen initially reviewed which shows chronic pancreatitis changes with numerous calcification with superimposed acute pancreatitis in head and uncinate process with pancreatic swelling and peripancreatic fat stranding. She has pancreatic duct stent. Patient stated she quit smoking and drinking alcohol 10 months ago. Patient is very apprehensive of fluid overload therefore IV fluid cut down to 75 mg daily per hour with clear liquid. [place] criteria is 2 point though LDH not available and ordered. I think that is 1% predicted mortality. IV morphine for pain control. Continue IV PPI 04/17: Diet advanced to full liquid to soft diet mashed potato, bland without fat or oil. TB normal. Transaminases normal. ALP 113, LDH 145. Lipase 90 upper limit normal. Leukocytosis improved to 12.7 K. Anticipate discharge tomorrow 2. Hypertensive Urgency with elevated blood pressure of 194/71 mmHg noted shortly after admission: BP fluctuates. Currently 113/74. Heart rate 114/min it was 190/71 last midnight. Clonidine 0.2 mg p.o. twice daily ordered. IV labetalol ordered. Will avoid IV hydralazine because it can cause tachycardia. 04/17: Heart rate And BP is controlled. BP 122/100. 3. Dyslipidemia on simvastatin. Fasting profile shows LDL 58, TC 128, TG 122.. 4. Recently quit alcohol smoking: B12 415. Folate 2.5. TSH 1.34. 5 6. Hyperlipidemia; on simvastatin - Hold statin and check lipid profile in case of underlying hypertriglyceridemia as a cause for #1. . Anemia of chronic disease: H&H 10.6/33.6%, normocytic on admission. Repeat hemoglobin 9.3/hematocrit 30%. No significant drop. History of chronic stenosis left subclavian artery Anxiety and depression GERD on pantoprazole, osteoarthritis with chronic back pain on meloxicam: Hold NSAID/meloxicam. History of stenosis of Left subclavian artery - Noted. DVT/GI prophylaxis - Enoxaparin 40 mg subcu daily plus SCDs. Pantoprazole 40 mg IV daily. Anticipate discharge tomorrow a.m. Laboratory Results 04/15/25 23:25: WBC 18.9 H, RBC 4.02 L, Hgb 10.7 L, Hct 33.6 L, MCV 83.6, MCH 26.6 L, MCHC 31.8 L, RDW Std Deviation 45.1 H, RDW Coeff of Min 14.6, Plt Count 291, MPV 9.5, Immature Gran % (Auto) 0.700, Neut % (Auto) 72.4 H, Lymph % (Auto) 14.6 L, [place] % (Auto) 7.0, Eos % (Auto) 4.9, Baso % (Auto) 0.4, Absolute Neuts (auto) 13.6 H, Absolute Lymphs (auto) 2.76, Nucleated RBC % 0, Sodium 138, Potassium 3.6, Chloride 99, Carbon Dioxide 27.4, Anion Gap 11, BUN 4, Creatinine 0.69 L, Estim Creat Clear Calc 70.83, Est GFR (MDRD) Non-Af 99, BUN/Creatinine Ratio 5.3 L, Glucose 111 H, Calcium 9.2, Magnesium 1.5, Total Bilirubin < 0.15, AST 16, ALT 13, Alkaline Phosphatase 127 H, Total Protein 6.9, Albumin 3.4, Globulin 3.5, Albumin/Globulin Ratio 1.0, Lipase 239 H, Ethyl Alcohol < 10.1 04/16/25 00:11: Urine Color Yellow, Urine Clarity Clear, Urine pH 7.0, Ur Specific [place] 1.005, Urine Protein 15 H, Urine Glucose (UA) Normal, Urine Ketones Negative, Urine Occult Blood Negative, Urine Nitrite Negative, Urine Bilirubin Negative, Urine Urobilinogen Normal, Ur Leukocyte Esterase 25 H, Urine RBC 0 SEEN, Urine WBC 0-5 SEEN, Ur Squamous Epith Cells 0-5 SEEN, Urine Bacteria 0 SEEN, Urine Mucus 0 SEEN, Urine Opiates Screen PRESUMPTIVE POSITIVE, U Buprenorphine Qual NEGATIVE, Ur Oxycodone Screen NEGATIVE, Urine Methadone Screen NEGATIVE, Urine Fentanyl Screen NEGATIVE, Ur Barbiturates Screen NEGATIVE, Ur Phencyclidine Scrn NEGATIVE, Ur Amphetamines Screen NEGATIVE, U Benzodiazepines Scrn NEGATIVE, Urine Cocaine Screen NEGATIVE, U Cannabinoids Screen NEGATIVE 04/16/25 05:30: WBC 15.3 H, RBC 3.49 L, Hgb 9.3 L, Hct 30.1 L, MCV 86.2, MCH 26.6 L, MCHC 30.9 L, RDW Std Deviation 46.5 H, RDW Coeff of Min 14.7 H, Plt Count 275, MPV 9.7, Immature Gran % (Auto) 0.600, Neut % (Auto) 74.2 H, Lymph % (Auto) 14.2 L, [place] % (Auto) 7.0, Eos % (Auto) 3.7, Baso % (Auto) 0.3, Absolute Neuts (auto) 11.4 H, Absolute Lymphs (auto) 2.17, Nucleated RBC % 0, Sodium 139, Potassium 3.7, Chloride 103, Carbon Dioxide 24.6, Anion Gap 11, BUN 3 L, Creatinine 0.57 L, Estim Creat Clear Calc 85.74, Est GFR (MDRD) Non-Af 103, BUN/Creatinine Ratio 5.0 L, Glucose 102 H, Calcium 8.7, Phosphorus 4.4, Total Bilirubin < 0.15, AST 12, ALT 11, Alkaline Phosphatase 114 H, Total Protein 6.2, Albumin 3.0 L, Globulin 3.2, Albumin/Globulin Ratio 0.9, Triglycerides 122, Cholesterol 128, LDL Cholesterol, Calc 58, VLDL Cholesterol 24, HDL Cholesterol 46, Cholesterol/HDL Ratio 2.78, Vitamin B12 415, Serum Folate 10.50, TSH 1.340 Laboratory Results 04/17/25 06:49: WBC 12.7 H, RBC 3.32 L, Hgb 8.9 L, Hct 28.3 L, MCV 85.2, MCH 26.8 L, MCHC 31.4 L, RDW Std Deviation 46.7 H, RDW Coeff of Min 14.9 H, Plt Count 310, MPV 10.3, Immature Gran % (Auto) 0.600, Neut % (Auto) 69.0, Lymph % (Auto) 16.6 L, [place] % (Auto) 8.3, Eos % (Auto) 5.0, Baso % (Auto) 0.5, Absolute Neuts (auto) 8.8 H, Absolute Lymphs (auto) 2.11, Nucleated RBC % 0, Sodium 139, Potassium 3.8, Chloride 101, Carbon Dioxide 26.9, Anion Gap 12, BUN 4, Creatinine 0.57 L, Estim Creat Clear Calc 85.74, Est GFR (MDRD) Non-Af 103, BUN/Creatinine Ratio 7.7 L, Glucose 107 H, Calcium 9.1, Total Bilirubin 0.18, AST 11, ALT 9, Alkaline Phosphatase 113 H, Lactate Dehydrogenase 145, Total Protein 6.0, Albumin 3.0 L, Globulin 3.0, Albumin/Globulin Ratio 1.0, Lipase 90 H Charges/Coding Visit Charges Inpatient E&M: 47542 Subs Hosp L2
[2025-04-17] MEDS: Ensure Plus High Protein 120 ML LIQUID PO (17:40)
[2025-04-17] MEDS: Pantoprazole Sodium 40 MG in 0.9% Normal Saline (100mL MB+) 100 ML 330 MG IV (20:50)
[2025-04-18] VITALS (9 sets, daily range): BP systolic 138–167; BP diastolic 73–87; PULSE 76–97; RESP 15–18; TEMP 36.6–37.2; O2SAT 93–98; BMI 21.9
[2025-04-18] MEDS: 0.9% Saline Lock 10 ML Syringe IV ×2 (00:49→22:51)
[2025-04-18 06:03] LABS: Hematocrit 28.1 % (37-47); Hemoglobin 8.8 g/dL (12.0-15.0); Immature Granulocytes Count 0.060 X10^3/uL (0.0-0.0); Mean Corp Hgb Conc 31.3 g/dL (32-36); Mean Corpuscular Volume 84.1 fL (81-99); Mean Platelet Vol. 9.9 fl (6.2-12.0); NRBC Flagged by Analyzer 0 % (0-5); Platelet Count 303 K/mm3 (150-450); RBC Distribution Width CV 14.8 % (11.6-14.6); RBC Distribution Width SD 45.5 fl (35.1-43.9); Red Blood Count 3.34 M/mm3 (4.2-5.4); White Blood Count 11.1 K/mm3 (4.4-11.0)
[2025-04-18 06:18] LABS: Anion Gap 12 (5-15); BUN 5 mg/dL (4-19); BUN/Creat Ratio 8.6 RATIO (10-20); Calcium,Total 8.8 mg/dL (7.6-11.0); Carbon Dioxide 27.2 mmol/L (21.0-32.0); Chloride 101 mmol/L (98-108); Estimated Creatinine Clearance 85.74 ml/min (50-250); Glucose 121 mg/dL (70-99); Potassium 3.7 mmol/L (3.3-5.1)
[2025-04-18] MEDS: Ensure Plus High Protein 120 ML LIQUID PO ×2 (08:40→17:03)
--- NOTE | 2025-04-18 16:37 | CASEMGMT ---
SARWAT LOMELI NOTE: Per Terence @ [facility], pt's concentrator goes up to 5 L/M. Jenny GALLOWAY RN CM
--- NOTE | 2025-04-18 17:44 | PN.HOSP_ITS ---
Subjective Subjective History of chronic pancreatitis continue abdominal pain. P.o. intake is not exacerbating her pain today. Objective Data Objective Data Vital Signs: Vital Signs Temp Pulse Resp BP Pulse Ox O2 Del Method O2 Flow Rate 98.2 F 94 18 149/73 H 94 Nasal Cannula 3 04/18/25 13:28 04/18/25 13:28 04/18/25 13:28 04/18/25 13:28 04/18/25 13:28 04/18/25 14:20 04/18/25 14:20 Oxygen Flow Rate (L/min) 3 Oxygen Delivery Method Nasal Cannula Weight: 123 lb 14.397 oz Body Mass Index (BMI) 21.9 Intake & Output: Intake and Output for Last 24 Hours 04/17/25 04/18/25 04/19/25 03:59 03:59 03:59 Intake Total 2321.67 / 2321.67 1360 / 1360 Balance 2321.67 / 2321.67 1360 / 1360 Lab / Micro Data 04/18/25 05:26 04/18/25 05:26 Labs: Laboratory Results - last 24 hr 04/18/25 05:26: WBC 11.1 H, RBC 3.34 L, Hgb 8.8 L, Hct 28.1 L, MCV 84.1, MCH 26.3 L, MCHC 31.3 L, RDW Std Deviation 45.5 H, RDW Coeff of Min 14.8 H, Plt Count 303, MPV 9.9, Immature Gran % (Auto) 0.500, Neut % (Auto) 60.1, Lymph % (Auto) 23.8, [place] % (Auto) 7.0, Eos % (Auto) 8.1 H, Baso % (Auto) 0.5, Absolute Neuts (auto) 6.6, Absolute Lymphs (auto) 2.64, Nucleated RBC % 0, Sodium 139, Potassium 3.7, Chloride 101, Carbon Dioxide 27.2, Anion Gap 12, BUN 5, C reatinine 0.57 L, Estim Creat Clear Calc 85.74, Est GFR (MDRD) Non-Af 103, B UN/Creatinine Ratio 8.6 L, Glucose 121 H, Calcium 8.8 Physical Exam Narrative General: Alert, Oriented x3, Cooperative, No apparent distress HEENT: Atraumatic, PERRLA, EOMI, Normocephalic Oral: Moist Mucosa Neck: Supple, No JVD Lungs: Diminished, Normal air movement, No rhonchi, No wheeze, No rales Cardiovascular: Regular rate, Regular Rhythm, Normal S1, Normal S2, No murmurs Abdomen: Soft, tender to palpation epigastric region, Non-Distended, No Hepato- splenomegaly Extremities: No edema, Capillary Refill Less than 3 Seconds Skin: No rashes, No breakdown Musculoskeletal: No Tenderness to Palpation of Joints or Extremities Neurological: No focal neurological deficits, Motor Exam 5/5 strength throughout, Sensory exam intact to light touch and pain Psych/Mental Status: Normal Affect, Appropriate Assessment & Plan Assessment/Plan (1) Acute on chronic pancreatitis: (2) Leukocytosis: QUALIFIERS: Leukocytosis type: unspecified Qualified Code(s): D 72.829 - Elevated white blood cell count, unspecified (3) Hypertensive urgency: (4) Presence of pancreatic duct stent: (5) History of alcohol abuse: (6) History of tobacco abuse: (7) COPD (chronic obstructive pulmonary disease): QUALIFIERS: COPD type: emphysema Emphysema type: centrilobular Q ualified Code(s): J43.2 - Centrilobular emphysema PLAN: Plan 1. Acute on chronic pancreatitis: CT abdomen initially reviewed which shows chronic pancreatitis changes with numerous calcification with superimposed acute pancreatitis in head and uncinate process with pancreatic swelling and peripancreatic fat stranding. She has pancreatic duct stent. Patient stated she quit smoking and drinking alcohol 10 months ago. Patient is very apprehensive of fluid overload therefore IV fluid cut down to 75 mg daily per hour with clear liquid. [place] criteria is 2 point though LDH not available and ordered. I think that is 1% predicted mortality. IV morphine for pain control. Continue IV PPI 04/17: Diet advanced to full liquid to soft diet mashed potato, bland without fat or oil. TB normal. Transaminases normal. ALP 113, LDH 145. Lipase 90 upper limit normal. Leukocytosis improved to 12.7 K. Anticipate discharge tomorrow 04/18/2025: Tolerating a diet without any significant increase in abdominal pain. I discontinued her morphine and will see how she tolerates oxycodone prior to discharge 2. Hypertensive Urgency with elevated blood pressure of 194/71 mmHg noted shortly after admission: BP fluctuates. Currently 113/74. Heart rate 114/min it was 190/71 last midnight. Clonidine 0.2 mg p.o. twice daily ordered. IV labetalol ordered. Will avoid IV hydralazine because it can cause tachycardia. 04/17: Heart rate And BP is controlled. BP 122/100. 04/18/2025: Blood pressure and heart rate are stable 3. Dyslipidemia on simvastatin. Fasting profile shows LDL 58, TC 128, TG 122.. 4. Recently quit alcohol smoking: B12 415. Folate 2.5. TSH 1.34. 5. Hyperlipidemia; on simvastatin - Hold statin and check lipid profile in case of underlying hypertriglyceridemia as a cause for #1. 6. Anemia of chronic disease: H&H 10.6/33.6%, normocytic on admission. Repeat hemoglobin 9.3/hematocrit 30%. No significant drop. 04/18/2025: Remains stable we will continue to monitor 7. Anxiety and depression ? Continue with her home medications 8. GERD ? Stable ? Continue with pantoprazole DVT: Lovenox Charges/Coding Visit Charges Inpatient E&M: 09960 Subs Hosp L2
[2025-04-18] MEDS: Budesonide Respules 0.5 MG/2 ML AMPUL.NEB. INHALATION (19:12)
[2025-04-18] MEDS: Pantoprazole Sodium 40 MG in 0.9% Normal Saline (100mL MB+) 100 ML 330 MG IV (22:48)
[2025-04-19] VITALS (8 sets, daily range): BP systolic 102–148; BP diastolic 70–77; PULSE 77–105; RESP 18–24; TEMP 36.9–37.1; O2SAT 93–97; BMI 23.7
[2025-04-19] MEDS: Albuterol 2.5 MG/3 ML VIAL.NEB. INHALATION (05:12)
[2025-04-19 05:52] LABS: Hematocrit 28.0 % (37-47); Hemoglobin 8.8 g/dL (12.0-15.0); Immature Granulocytes Count 0.110 X10^3/uL (0.0-0.0); Mean Corp Hgb Conc 31.4 g/dL (32-36); Mean Corpuscular Volume 84.1 fL (81-99); Mean Platelet Vol. 9.6 fl (6.2-12.0); NRBC Flagged by Analyzer 0 % (0-5); Platelet Count 330 K/mm3 (150-450); RBC Distribution Width CV 14.5 % (11.6-14.6); RBC Distribution Width SD 44.5 fl (35.1-43.9); Red Blood Count 3.33 M/mm3 (4.2-5.4); White Blood Count 10.3 K/mm3 (4.4-11.0)
[2025-04-19] MEDS: Budesonide Respules 0.5 MG/2 ML AMPUL.NEB. INHALATION (07:22)
[2025-04-19] MEDS: 0.9% Saline Lock 10 ML Syringe IV ×2 (09:05→12:22)
--- NOTE | 2025-04-19 09:07 | PCM.DC ---
Discharge Instructions DC O2, CPAP, BIPAP needs Home O2 Discharge instructions: No Dressing / Incision Discharge Activity: Return to Normal Activity Dressing / Incision Call your doctor if you observe: Fever of 101 or Higher, Shortness of breath, Dizziness, Fainting spells, Swelling in the ankles, Chest pain and Increased palpitations (irregular heartbeat) Follow Up Care Test Results: Test results from this visit will be discussed in further detail at your follow-up appointment, if applicable. Discharge Plan Admission Admit Date/Time: 04/16/25 01:14 Attending Provider: Sudhir Izquierdo Primary Care Provider: Annmarie Hay Consulting Providers: Jackson Elizalde; Bert Greenwood Instructions Patient Instructions: Pancreatitis Chronic Dc Discharge Orders/Prescriptions Prescriptions: New oxycodone 5 mg Tablet 5 mg PO Q8H PRN PRN (Reason: Pain Score 6-10) 3 Days Qty: 10 0RF Continued mirtazapine 45 mg tablet 45 mg PO QHS lisinopril 10 mg tablet 10 mg PO QDAY albuterol sulfate [Ventolin HFA] 90 mcg/actuation HFA aerosol inhaler 2 puff INHALATION Q4H PRN (Reason: shortness of breath or wheezing) Qty: 18 11RF gabapentin 300 mg capsule 300 mg PO BID meloxicam 7.5 mg tablet 7.5 mg PO QDAY ondansetron 4 mg tablet,disintegrating 4 mg PO Q6 PRN (Reason: nausea/vomiting) tramadol 50 mg tablet 50 mg PO Q6 PRN (Reason: pain) hydroxyzine pamoate 25 mg capsule 25 mg PO QDAY PRN (Reason: anxiety) Breztri Aerosphere 160-9-4.8 mcg/actuation HFA aerosol inhaler 2 inh inhalation BID Qty: 10.7 6RF cholecalciferol (vitamin D3) 2,000 UNIT capsule 50 mcg PO DAILY aripiprazole [Abilify] 5 mg Tablet 5 mg PO DAILY metoprolol tartrate 25 mg Tablet 25 mg PO BID 30 Days Qty: 60 0RF Rx Instructions: Hold for heart less than 50 or systolic blood pressure less than 100 mmHg. albuterol sulfate 2.5 mg /3 mL (0.083 %) solution for nebulization 2.5 mg continuous nebulization PRN Patient Comments: Use 3 mL via nebulizer one time only for 1 dose. Use over 5-15minutes. amlodipine 5 mg tablet 5 mg PO DAILY pantoprazole 40 mg tablet,delayed release (DR/EC) 40 mg PO DAILY simvastatin 20 mg tablet 20 mg PO QHS ondansetron 4 mg tablet,disintegrating 4 mg PO Q8H PRN PRN (Reason: Nausea) Qty: 12 0RF nicotine 14 mg/24 hr patch 24 hour 1 patch transdermal ONCE Qty: 28 1RF guaifenesin 100 mg/5 mL liquid 200 mg PO Q4H PRN (Reason: congestion) Qty: 473 0RF (DME) Shower chair See Rx Instructions .Route .MEDSUPPLY Qty: 1 0RF Rx Instructions: As directed ipratropium-albuterol 0.5 mg-3 mg(2.5 mg base)/3 mL solution for nebulization 3 ml inhalation Q4H Qty: 360 11RF Referrals / Follow Up: Annmarie Hay MD [Primary Care Provider] - Within 1 Week Marshal Segura DO [Med Staff - Active Staff] - Within 1 Month Disposition Disposition (needs filled in before D/C Order can be placed): Home, Self Care
--- NOTE | 2025-04-19 10:08 | CASEMGMT ---
Addendum entered by María Montgomery 04/19/25 11:00: Home O2 amb testing has been completed. Pt does not need any higher O2 liter flow than she was on prior to admission. Original Note: SARWAT LOMELI NOTE: Discharge order is in. SARWAT LOMELI to room. Pt resting in bed. Introduced self and role. Pt aware she is discharging home today and feels comfortable with this. Her sister will be taking her home. She is aware Rx has been sent to [facility] and states this can be picked up today. She has her portable O2 tank in her room to dc home on. She denies having any discharge needs or concerns. She is aware to f/u with Dr Hay in 1 week. She already has an appt w/ Friend 04/27 @ 1:30 PM. This was added to pt's discharge plan. Jenny GALLOWAY RN, CM
--- NOTE | 2025-04-19 10:31 | PHA.DC_ITS ---
Pharmacy [facility] Counseling Pharmacy Service has performed discharge medication reconciliation and counseling for this patient. 1. OXYCODONE 5MG PO Q8H PRN PAIN (DO NOT TAKE WITH TRAMADOL) The patient's discharge medication list was reviewed for discrepancies and discrepancies were resolved. The patient was counseled on the following discharge medications and changes in medications for homegoing were reviewed. The Reason for Use, instructions for use, and potential side effects were reviewed for all new medications. The patient's questions regarding all of their medications were answered. The patient was able to verbally demonstrate an understanding of their discharge medications. Medications at Discharge Home Medications cholecalciferol (vitamin D3) 50 mcg (2,000 unit) capsule 50 mcg PO DAILY SUPPLEMENT 12/29/18 aripiprazole 5 mg tablet (Abilify) 5 mg PO DAILY mood 01/22/21 mirtazapine 45 mg tablet 45 mg PO QHS sleep 01/16/22 metoprolol tartrate 25 mg tablet 25 mg PO BID 30 days #60 tabs 01/05/24 lisinopril 10 mg tablet 10 mg PO QDAY hypertension 01/26/24 albuterol sulfate 90 mcg/actuation aerosol inhaler (Ventolin HFA) 2 puff inhalation Q4H PRN shortness of breath or wheezing #18 grams 05/11/24 nicotine 14 mg/24 hr daily transdermal patch 1 patch transdermal ONCE #28 ea 12/14/24 guaifenesin 100 mg/5 mL oral liquid 200 mg (10 mL) PO Q4H PRN congestion #473 mL 12/16/24 meloxicam 7.5 mg tablet 7.5 mg PO QDAY pain 12/23/24 ondansetron 4 mg disintegrating tablet 4 mg PO Q6 PRN nausea/vomiting 12/23/24 Shower chair #1 ea 12/30/24 ipratropium 0.5 mg-albuterol 3 mg (2.5 mg base)/3 mL nebulization soln 3 ml inhalation Q4H shortness of breath or wheezing #360 mL 01/04/25 gabapentin 300 mg capsule 300 mg PO BID nerve pain 02/08/25 ondansetron 4 mg disintegrating tablet 4 mg PO Q8H PRN PRN Nausea #12 tabs 02/26/25 albuterol sulfate 2.5 mg/3 mL (0.083 %) solution for nebulization 2.5 mg continuous nebulization PRN COPD 03/13/25 amlodipine 5 mg tablet 5 mg PO DAILY hypertension 03/13/25 pantoprazole 40 mg tablet,delayed release 40 mg PO DAILY acid reflux 03/13/25 simvastatin 20 mg tablet 20 mg PO QHS high cholesterol 03/13/25 budesonide 160 mcg-glycopyr 9 mcg-formot 4.8 mcg/actuation HFA inhaler ([employer]) 2 inh inhalation BID #10.7 grams 04/10/25 hydroxyzine pamoate 25 mg capsule 25 mg PO QDAY PRN anxiety 04/10/25 tramadol 50 mg tablet 50 mg PO Q6 PRN pain 04/10/25 oxycodone 5 mg tablet 5 mg PO Q8H PRN PRN Pain Score 6-10 3 days #10 tabs 04/19/25
--- NOTE | 2025-04-19 14:13 | DS.PCM_ITS ---
Providers Date of Admission: 04/16/25 Primary Care Physician: Dr. Annmarie Hay MD Reason For Visit: ACUTE ON CHRONIC PANCREATITIS WITH LEUKOCYTOSIS Diagnosis Discharge Diagnosis (1) Acute on chronic pancreatitis: Status: Chronic Code(s): K85.90 - Acute pancreatitis without necrosis or infection, unspecified; K86.1 - Other chronic pancreatitis (2) Leukocytosis: Status: Acute Code(s): D72.829 - Elevated white blood cell count, unspecified Qualifiers: Leukocytosis type: unspecified Qualified Code(s): D72.829 - Elevated white blood cell count, unspecified (3) Hypertensive urgency: Status: Acute Code(s): I16.0 - Hypertensive urgency (4) Presence of pancreatic duct stent: Status: Acute Code(s): Z96.89 - Presence of other specified functional implants (5) History of alcohol abuse: Status: Acute Code(s): F10.11 - Alcohol abuse, in remission (6) History of tobacco abuse: Status: Acute Code(s): Z87.891 - Personal history of nicotine dependence (7) COPD (chronic obstructive pulmonary disease): Status: Chronic Code(s): J44.9 - Chronic obstructive pulmonary disease, unspecified Qualifiers: COPD type: emphysema Emphysema type: centrilobular Qualified Code(s): J43.2 - Centrilobular emphysema Medications at Discharge Home Medications cholecalciferol (vitamin D3) 50 mcg (2,000 unit) capsule 50 mcg PO DAILY SUPPLEMENT 12/29/18 aripiprazole 5 mg tablet (Abilify) 5 mg PO DAILY mood 01/22/21 mirtazapine 45 mg tablet 45 mg PO QHS sleep 01/16/22 metoprolol tartrate 25 mg tablet 25 mg PO BID 30 days #60 tabs 01/05/24 lisinopril 10 mg tablet 10 mg PO QDAY hypertension 01/26/24 albuterol sulfate 90 mcg/actuation aerosol inhaler (Ventolin HFA) 2 puff inhalation Q4H PRN shortness of breath or wheezing #18 grams 05/11/24 nicotine 14 mg/24 hr daily transdermal patch 1 patch transdermal ONCE #28 ea 12/14/24 guaifenesin 100 mg/5 mL oral liquid 200 mg (10 mL) PO Q4H PRN congestion #473 mL 12/16/24 meloxicam 7.5 mg tablet 7.5 mg PO QDAY pain 12/23/24 ondansetron 4 mg disintegrating tablet 4 mg PO Q6 PRN nausea/vomiting 12/23/24 Shower chair #1 ea 12/30/24 ipratropium 0.5 mg-albuterol 3 mg (2.5 mg base)/3 mL nebulization soln 3 ml inhalation Q4H shortness of breath or wheezing #360 mL 01/04/25 gabapentin 300 mg capsule 300 mg PO BID nerve pain 02/08/25 ondansetron 4 mg disintegrating tablet 4 mg PO Q8H PRN PRN Nausea #12 tabs 02/26/25 albuterol sulfate 2.5 mg/3 mL (0.083 %) solution for nebulization 2.5 mg continuous nebulization PRN COPD 03/13/25 amlodipine 5 mg tablet 5 mg PO DAILY hypertension 03/13/25 pantoprazole 40 mg tablet,delayed release 40 mg PO DAILY acid reflux 03/13/25 simvastatin 20 mg tablet 20 mg PO QHS high cholesterol 03/13/25 budesonide 160 mcg-glycopyr 9 mcg-formot 4.8 mcg/actuation HFA inhaler (Breztri Aerosphere) 2 inh inhalation BID #10.7 grams 04/10/25 hydroxyzine pamoate 25 mg capsule 25 mg PO QDAY PRN anxiety 04/10/25 tramadol 50 mg tablet 50 mg PO Q6 PRN pain 04/10/25 oxycodone 5 mg tablet 5 mg PO Q8H PRN PRN Pain Score 6-10 3 days #10 tabs 04/19/25 Hospital Course Operations None Procedures None Summary of Care Provided Minutes Spent on Discharge: 37 Hospital Course: Per HPI: MIR BANUELOS, is a 59 F with a past medical history of essential hypertension; on amlodipine and lisinopril, hyperlipidemia; on simvastatin, history of tobacco abuse for more than 30 years before quitting (02/2025); with subsequent asthma/stage III COPD, chronic hypoxic respiratory failure on 5L NC, remote history of EtOH abuse (quit 2020) with history of chronic pancreatitis, history of pancreatic stent placement at [facility] on March 10, 2025 with patient in the process of transferring her care to Dr. Segura of gastroenterology here, history of stenosis of Left subclavian artery, chronic anemia, depression with anxiety; on aripiprazole and mirtazapine, GERD; on pantoprazole and OA; with chronic back pain on meloxicam and as needed tramadol every 6 hours who presents to [facility] ER complaining of abdominal pain. Ms. Banuelos reports her symptoms began on the evening of April 14, 2025 with the abrupt-onset of pain in the middle of the night and gradually worsened throughout the day and has now become quite severe. She states her pain is better when she lies down but is much worse when she sits up and forward. She states her pain is primarily emanating from her RUQ with radiation into her back with chronic intermittent pain since her recent treatment at [facility] that included pancreatic duct placement with removal of multiple stones - but this is much worse. She states she did not eat any fatty meal or meat last night and she denies recent EtOH intake. She denies related fever, chills, nausea, vomiting, abnormal bowel movements, chest pain, palpitations, heart racing, lower extremity edema, dysuria, hematuria, headache or rash. In the ER she underwent CT of the abdomen and pelvis which revealed [id number] Pancreatitis in the pancreatic head/uncinate process with corresponding laboratory evidence of elevated lipase of 239 units/L and Leukocytosis of 18.9 K present on admission complicated by Hypertensive Urgency with elevated blood pressure of 194/71 mmHg noted shortly after admission. She was then admitted to the general medical floor for ongoing care for state that is expected to extend beyond 2 midnights. Hospital Course: 1. Acute on chronic pancreatitis: CT abdomen initially reviewed which shows chronic pancreatitis changes with numerous calcification with superimposed acute pancreatitis in head and uncinate process with pancreatic swelling and peripancreatic fat stranding. She has pancreatic duct stent. Patient stated she quit smoking and drinking alcohol 10 months ago. Patient is very apprehensive of fluid overload therefore IV fluid cut down to 75 mg daily per hour with clear liquid. Efren criteria is 2 point though LDH not available and ordered. I think that is 1% predicted mortality. IV morphine for pain control. Continue IV PPI 04/17: Diet advanced to full liquid to soft diet mashed potato, bland without fat or oil. TB normal. Transaminases normal. ALP 113, LDH 145. Lipase 90 upper limit normal. Leukocytosis improved to 12.7 K. Anticipate discharge tomorrow 04/18/2025: Tolerating a diet without any significant increase in abdominal pain. I discontinued her morphine and will see how she tolerates oxycodone prior to discharge 04/19/2025: Feels much better today, minimal abdominal pain with food. Discussed dietary restrictions and she requested discharge home. She did express understanding of the risk and benefits of going home and would like to go home today. She says that she is transferring all of her GI stuff from the [facility] down to our director of digital marketing so I did make a referral for outpatient follow-up. 2. Hypertensive Urgency with elevated blood pressure of 194/71 mmHg noted shortly after admission: BP fluctuates. Currently 113/74. Heart rate 114/min it was 190/71 last midnight. Clonidine 0.2 mg p.o. twice daily ordered. IV labetalol ordered. Will avoid IV hydralazine because it can cause tachycardia. 04/17: Heart rate And BP is controlled. BP 122/100. 04/18/2025: Blood pressure and heart rate are stable 3. Dyslipidemia on simvastatin. Fasting profile shows LDL 58, TC 128, TG 122.. 4. Recently quit alcohol smoking: B12 415. Folate 2.5. TSH 1.34. 5. Hyperlipidemia; on simvastatin - Hold statin and check lipid profile in case of underlying hypertriglyceridemia as a cause for #1. 6. Anemia of chronic disease: H&H 10.6/33.6%, normocytic on admission. Repeat hemoglobin 9.3/hematocrit 30%. No significant drop. 04/18/2025: Remains stable we will continue to monitor 7. Anxiety and depression ? Continue with her home medications 8. GERD ? Stable ? Continue with pantoprazole Physical Exam Narrative General: Alert, Oriented x3, Cooperative, No apparent distress HEENT: Atraumatic, PERRLA, EOMI, Normocephalic Oral: Moist Mucosa Neck: Supple, No JVD Lungs: Diminished, Normal air movement, No rhonchi, No wheeze, No rales Cardiovascular: Regular rate, Regular Rhythm, Normal S1, Normal S2, No murmurs Abdomen: Soft, tender to palpation epigastric region, Non-Distended, No Hepato- splenomegaly Extremities: No edema, Capillary Refill Less than 3 Seconds Skin: No rashes, No breakdown Musculoskeletal: No Tenderness to Palpation of Joints or Extremities Neurological: No focal neurological deficits, Motor Exam 5/5 strength throughout, Sensory exam intact to light touch and pain Psych/Mental Status: Normal Affect, Appropriate Weight / BMI Weight Weight: 133 lb 13.129 oz Body Mass Index (BMI) 23.7 ABG / Lab / Microbiology Data 04/19/25 05:19 04/18/25 05:26 Laboratory: Laboratory Results - last 24 hr 04/19/25 05:19: WBC 10.3, RBC 3.33 L, Hgb 8.8 L, Hct 28.0 L, MCV 84.1, MCH 26.4 L, MCHC 31.4 L, RDW Std Deviation 44.5 H, RDW Coeff of Min 14.5, Plt Count 330, MPV 9.6, Immature Gran % (Auto) 1.100 H, Neut % (Auto) 54.6, Lymph % (Auto) 24.2, Bee % (Auto) 7.2, Eos % (Auto) 12.2 H, Baso % (Auto) 0.7, Absolute Neuts (auto) 5.6, Absolute Lymphs (auto) 2.49, Nucleated RBC % 0 D/C Instructions Call your doctor if you observe: Fever of 101 or Higher, Shortness of breath, Dizziness, Fainting spells, Swelling in the ankles, Chest pain and Increased palpitations (irregular heartbeat) DC O2, CPAP, BIPAP Needs Home O2 Discharge instructions: No Meaningful Use Info Meaningful Use Meaningful Use Diagnoses (Choose all that apply): None applicable Discharge Plan Admission Admit Date/Time: 04/16/25 01:14 Attending Provider: Sudhir Izquierdo Primary Care Provider: Annmarie Hay Consulting Providers: Jackson Elizalde; Bert Greenwood Instructions Patient Instructions: Pancreatitis Chronic Dc Discharge Orders/Prescriptions Prescriptions: New oxycodone 5 mg Tablet 5 mg PO Q8H PRN PRN (Reason: Pain Score 6-10) 3 Days Qty: 10 0RF Continued mirtazapine 45 mg tablet 45 mg PO QHS lisinopril 10 mg tablet 10 mg PO QDAY albuterol sulfate [Ventolin HFA] 90 mcg/actuation HFA aerosol inhaler 2 puff INHALATION Q4H PRN (Reason: shortness of breath or wheezing) Qty: 18 11RF gabapentin 300 mg capsule 300 mg PO BID meloxicam 7.5 mg tablet 7.5 mg PO QDAY ondansetron 4 mg tablet,disintegrating 4 mg PO Q6 PRN (Reason: nausea/vomiting) tramadol 50 mg tablet 50 mg PO Q6 PRN (Reason: pain) hydroxyzine pamoate 25 mg capsule 25 mg PO QDAY PRN (Reason: anxiety) Breztri Aerosphere 160-9-4.8 mcg/actuation HFA aerosol inhaler 2 inh inhalation BID Qty: 10.7 6RF cholecalciferol (vitamin D3) 2,000 UNIT capsule 50 mcg PO DAILY aripiprazole [Abilify] 5 mg Tablet 5 mg PO DAILY metoprolol tartrate 25 mg Tablet 25 mg PO BID 30 Days Qty: 60 0RF Rx Instructions: Hold for heart less than 50 or systolic blood pressure less than 100 mmHg. albuterol sulfate 2.5 mg /3 mL (0.083 %) solution for nebulization 2.5 mg continuous nebulization PRN Patient Comments: Use 3 mL via nebulizer one time only for 1 dose. Use over 5-15minutes. amlodipine 5 mg tablet 5 mg PO DAILY pantoprazole 40 mg tablet,delayed release (DR/EC) 40 mg PO DAILY simvastatin 20 mg tablet 20 mg PO QHS ondansetron 4 mg tablet,disintegrating 4 mg PO Q8H PRN PRN (Reason: Nausea) Qty: 12 0RF nicotine 14 mg/24 hr patch 24 hour 1 patch transdermal ONCE Qty: 28 1RF guaifenesin 100 mg/5 mL liquid 200 mg PO Q4H PRN (Reason: congestion) Qty: 473 0RF (DME) Shower chair See Rx Instructions .Route .MEDSUPPLY Qty: 1 0RF Rx Instructions: As directed ipratropium-albuterol 0.5 mg-3 mg(2.5 mg base)/3 mL solution for nebulization 3 ml inhalation Q4H Qty: 360 11RF Referrals / Follow Up: Annmarie Hay MD [Primary Care Provider] - Within 1 Week Marshal eSgura DO [Med Staff - Active Staff] - 04/27/25 1:30 pm (As previously scheduled by pt. ) Disposition Disposition (needs filled in before D/C Order can be placed): Home, Self Care Charges/Coding Visit Charges Inpatient E&M: 13354 Disch Hosp >30min
== END 2025-04-19 13:16 | disposition home or self-care (01) | DRG 282 ==
LOC: ED 04-16 00:40 → MS3 04-16 01:22
PROVIDERS: Internal Medicine; Admitting Provider Internal Medicine; Emergency Provider Emergency Medicine; PCP Internal Medicine; Referring Provider Emergency Medicine; Visit Provider Family Medicine
DX: K85.90 Acute pancreatitis without necrosis or infection, unspecified (principal); D63.8 Anemia in other chronic diseases classified elsewhere; J43.2 Centrilobular emphysema; I10 Essential (primary) hypertension; F10.11 Alcohol abuse, in remission; J96.11 Chronic respiratory failure with hypoxia; K86.1 Other chronic pancreatitis; M19.90 Unspecified osteoarthritis, unspecified site; K21.9 Gastro-esophageal reflux disease without esophagitis; E78.5 Hyperlipidemia, unspecified; I16.0 Hypertensive urgency; D72.829 Elevated white blood cell count, unspecified; F41.8 Other specified anxiety disorders; Z79.891 Long term (current) use of opiate analgesic; Z79.899 Other long term (current) drug therapy; Z87.891 Personal history of nicotine dependence; Z96.89 Presence of other specified functional implants
CPT/HCPCS: 36415; 74177; 80048; 80053; 80061; 80307; 81001; 82077; 82607; 82746; 83615; 83690; 83735; 84100; 84443; 85025; 94640; 94668; 97162; 99252; 99285; 99406; Q9967; A4216; G0463; J2405

== ENCOUNTER → 2025-04-26 | Outpatient (CLI) | payer MEDICAID, SELFPAY ==
--- NOTE | 2025-04-26 14:43 | RAD_ITS ---
PROCEDURE: ABDOMEN SINGLE VIEW 04/26/2025 REASON FOR EXAM: PANCREATIC STENT TECHNIQUE: ABDOMEN SINGLE VIEW COMPARISON: CT 04/15/2025 FINDINGS: Pancreatic stent appears to be in good position. Chronic pancreatitis. Clear lung bases. No free air. Nonobstructed bowel. Mild stool. Aortoiliac calcifications. RAD/Abdomen Single View IMPRESSION: Pancreatic stent in good position. Reading Location: [facility]
[2025-04-26 15:27] LABS: Lipase 353 U/L (13-75)
== END | disposition home or self-care (01) ==
LOC: RAD 14:25
PROVIDERS: PCP Internal Medicine; Referring Provider Student in an Organized Health Care Education/Training Program; Visit Provider Student in an Organized Health Care Education/Training Program
DX: K86.0 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 chronic pancreatitis (principal); Z98.890 Other specified postprocedural states; R19.5 Other fecal abnormalities
CPT/HCPCS: 36415; 74018; 83690

== ENCOUNTER → 2025-04-27 | Outpatient (CLI) | payer MEDICAID, SELFPAY ==
[2025-05-01 08:07] LABS: Calprotectin, Stool 20 ug/g (0-120)
[2025-05-01 14:08] LABS: Pancreatic Elastase, Fecal 462 (>200)
== END | disposition home or self-care (01) ==
LOC: LABSPEC 10:26
PROVIDERS: PCP Internal Medicine; Referring Provider Student in an Organized Health Care Education/Training Program; Visit Provider Student in an Organized Health Care Education/Training Program
DX: K58.9 Irritable bowel syndrome, unspecified (principal); K86.1 Other chronic pancreatitis; K86.0 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 chronic pancreatitis; K85.90 Acute pancreatitis without necrosis or infection, unspecified; R19.5 Other fecal abnormalities
CPT/HCPCS: 82653; 83993; 87177; 87209; 87329; 87493; 87506

== ENCOUNTER 2025-05-10 20:30 | Emergency (ER) | payer MEDICAID, SELFPAY ==
[2025-05-10 20:32] VITALS: BP 120/80; PULSE 100; RESP 20; TEMP 36.4; O2SAT 90; BMI 23.6
--- OUTSIDE RECORDS SUMMARY | 2025-05-10 21:26 | XMS RPT_ITS | CCD ---
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 Freddie Perdue Attending Provider Dr. Freddie Perdue Referring Provider Misbah Elkins MD Primary Care Provider Misbah Elkins MD Primary Care Provider RUSTAM, POLYSTYRENE MOLDING MACHINE TENDER-C SOILA Primary Care Provider Alesha POLYSTYRENE MOLDING MACHINE TENDER, POLYSTYRENE MOLDING MACHINE TENDER-C Ani Attending Provider [phone] Alesha POLYSTYRENE MOLDING MACHINE TENDER, POLYSTYRENE MOLDING MACHINE TENDER-C Ani Referring Provider Unavailable Primary Care Provider Unavailabl e Free, Text Entry Unavailable Unavailable Older, Soila A Unavailable Unavailable Yalamanchali, Varija Unavailable Unavailable Prennorah, Yrn Unavailable Unavailable Older, Soila A Unavailable Jaime Aggarwal MD Unavailable Jeffery Jin MD Unavailable Dr. Edmund Tang Emergency Provider Dr. Ciarra [...] Dieter Harrison Other Provider Unavailab anjelica Eduardo POLYSTYRENE MOLDING MACHINE TENDER, POLYSTYRENE MOLDING MACHINE TENDER-C Ani Other Provider Dr. Anastacia Bonilla Other Provider [phone] Dr. Anastacia Bonilla Attending Provider [phone] Dr. Courtney Iverson Other Provider [phone] Donn Galan Attending Provider PROVIDER, UNKNOWN [...] Yrn Attending Unavailable Patient, Unavailable Referring Unavailable Caleb, Varija Attending Unavailable Dr. Tai Peoples Admitting Unavailable Pending, Provider Primary Care Unavailable OLDER, POLYSTYRENE MOLDING MACHINE TENDER-C SOILA Primary Care Provider OLDER, POLYSTYRENE MOLDING MACHINE TENDER-C SOILA Referring Provider Alesha POLYSTYRENE MOLDING MACHINE TENDER, POLYSTYRENE MOLDING MACHINE TENDER-C Ani Attending Provider Dr. Víctor Huerta Emergency Provider [phone] Brock POLYSTYRENE MOLDING MACHINE TENDER, POLYSTYRENE MOLDING MACHINE TENDER-C Anat Primary Care Provider Dr. Carin Meraz Admit Provider Dr. Carin Meraz Other Provider Dr. Anastacia Bonilla Attending Provider Dr. Anastacia Bonilla Other Provider Dr. Bert Greenwood Attending Provider Dr. Bert Greenwood Other Provider Satnam MENENDEZ, Misbah Primary Care Provider Larry Talley PA-C Unavailable Older LEI MAKER.BOX TOE MAKER, Soila Unavailable Neo BELTRAN, Nara Unavailable Satnam MENENDEZ, Dr. Anguiano Primary Care Provider Alesha POLYSTYRENE MOLDING MACHINE TENDER-C, Ani Attending Provider Alesha POLYSTYRENE MOLDING MACHINE TENDER-CAni Referring Provider Storm MENENDEZ, Dr. Gamez Emergency Provider [phone] Dr. Aleta Aguayo DO Admit Provider Dr. Aleta Aguayo DO Attending Provider Dr. Aleta Aguayo DO Other Provider Dr. Yrn Kahn DO Attending Provider Leigh MENENDEZ, Dr. Conde Other Provider Shannon MENENDEZ, Dr. Davis Other Provider Iron MENENDEZ, Dr. Frazier Other Provider Dr. Gonzalo Sebastian DO Other Provider Lorenza MENENDEZ, Dr. Jackson Salas Other Provider [phone] Chris MENENDEZ, Dr. Rico Other Provider [phone] Kiko MENENDEZ, Dr. Harley Other Provider Robbie MENENDEZ, Dr. Urban Other Provider Randee MENENDEZ, Dr. Guillory Other Provider Silvio MENENDEZ, Dr. Kelley Other Provider [phone] Candido MENENDEZ, Dr. Sandoval Other Provider [phone] Brad MENENDEZ, Dr. Em Other Provider Fede MENENDEZ, Dr. Rodriguez Other [facility] cherry Hurt MD, Dr. Ward Other Provider [phone] Conchita MENENDEZ, Dr. Booker Other Provider Yamel MENENDEZ, Dr. Johnson Other Provider Manuel MENENDEZ, Dr. Doan Other Provider Niru LOTT, Dr. Kathleen Other Provider Nancy MENENDEZ, Dr. Sánchez Other Provider [phone] Tr MENENDEZ, Dr. [...] Provider Dr. Yrn Kahn DO Other Provider Leigh MENENDEZ, Dr. Conde Other Provider Shannon MENENDEZ, Dr. Davis Other Provider Iron MENENDEZ, Dr. Frazier Other Provider Dr. Gonzalo Sebastian DO Other Provider Lorenza MENENDEZ, Dr. Jackson Salas Other Provider Chris MENENDEZ, Dr. Rico Other Provider [phone] Kiko MENENDEZ, Dr. Harley Other Provider [phone] Robbie MENENDEZ, Dr. Urban Other Provider Randee MENENDEZ, Dr. Guillory Other Provider [phone] Silvio MENENDEZ, Dr. Kelley Other Provider [phone] Candido MENENDEZ, Dr. Sandoval Other Provider [phone] Brad MENENDEZ, Dr. Em Other Provider Fede MENENDEZ, Dr. Rodriguez Other Provider Unavailabl cherry Hurt MD, Dr. Ward Other Provider [phone] Conchita MENENDEZ, Dr. Booker Other Provider Yamel MENENDEZ, Dr. Johnson Other Provider [phone] Manuel MENENDEZ, Dr. Doan Other Provider Niru LOTT, Dr. Kathleen Other Provider Nancy MENENDEZ, Dr. Sánchez Other Provider [phone] Tr MENENDEZ, Dr. Gutierres Other Provider [phone] Sofia LOTT, Dr. Hurst Other Provider Jeferson MENENDEZ, Dr. Barreto Other Provider Billy MENENDEZ, Dr. Pal Other Provider Dr. Yrn Kahn DO Attending Provider Chad MENENDEZ, Dr. Anastacia Ni Other Provider Dr. Marshal Segura DO Attending Provider Satnam MENENDEZ, Dr. Anguiano Primary Care Provider [phone] Alesha POLYSTYRENE MOLDING MACHINE TENDER-CAni Attending Provider Alesha POLYSTYRENE MOLDING MACHINE TENDER-CAni Referring Provider Storm MENENDEZ, Dr. Gamez Emergency Provider Olivier LOTT, Dr. River Admit Provider Dr. Aleta Aguayo DO Other Provider Chad MENENDEZ, Dr. Anastacia Ni Attending Provider Criss LOTT, Dr. Pool Other Provider Olivier LOTT, Dr. River Attending [...] Provider Robbie MENENDEZ, Dr. Urban Other Provider [phone] Randee MENENDEZ, Dr. Guillory Other Provider Silvio MENENDEZ, Dr. Kelley Other Provider [phone] Dr. Jaime Rey MD Other Provider Brad MENENDEZ, Dr. Em Other Provider Fede MENENDEZ, Dr. Rodriguez Other [facility] cherry Hurt MD, Dr. Ward Other Provider Dr. Jhony Arango MD Other Provider Yamel MENENDEZ, Dr. Johnson Other Provider Dr. Franki Jackson MD Other Provider [phone] Hever Marrufo DO Other Provider Nancy MENENDEZ, Dr. Sánchez Other Provider Dr. Nenita Armando MD Other Provider Dr. Aris Black DO Other Provider Jeferson MENENDEZ, Dr. Barreto Other Provider [phone] Billy MENENDEZ, Dr. Pal Other Provider Minor MENENDEZ, Dr. Angeles Attending Provider Criss LOTT, Dr. Pool Attending Provider Chad MENENDEZ, Dr. Anastacia Ni Other Provider Chad MENENDEZ, Dr. Anastacia Ni Referring Provider Colton LOTT, Dr. Araya Attending Provider Satnam MENENDEZ, Dr. Anguiano Referring Provider Gabby Vela Attending Provider Anjelica LOTT, Dr. Hassan Emergency Provider Dr. Mo Velasco DO Attending Provider Leandro Sanchez MD Referring Provider Leandro Sanchez MD Emergency Provider Leandro Sanchez MD Attending Provider Storm MENENDEZ, Dr. Gamez Attending Provider Brock POLYSTYRENE MOLDING MACHINE TENDER-C, Anat Referring Provider Abi LOTT, Dr. Camacho Emergency Provider Jolene MENENDEZ, Dr. Min Attending Provider Jolene MENENDEZ, Dr. Min Admit Provider Jolene MENENDEZ, Dr. Min Other Provider Felecia MENENDEZ, Dr. Sudhir Monte Attending Provider Felecia MENENDEZ, Dr. Sudhir Monte Other Provider Provider , Elisa Elkins MD, Dr. Anguiano Primary Care Provider Leigh MENENDEZ, Dr. Conde Other Provider Shannon MENENDEZ, Dr. Davis Other Provider Iron MENENDEZ, Dr. Frazier Other Provider Dr. Gonzalo Sebastian DO Other Provider Lorenza MENENDEZ, Dr. Jackson Salas Other Provider Chris MENENDEZ, Dr. Rico Other Provider [phone] Kiko MENENDEZ, Dr. Harley Other Provider Robbie MENENDEZ, Dr. Urban Other Provider [phone] Randee MENENDEZ, Dr. Guillory Other Provider [phone] Silvio MENENDEZ, Dr. Kelley Other Provider [phone] Candido MENENDEZ, Dr. Sandoval Other Provider [phone] Brad MENENDEZ, Dr. Em Other Provider Fede MENENDEZ, Dr. Rodriguez Other Provider Unavailabl cherry Hurt MD, Dr. Ward Other Provider [phone] Conchita MENENDEZ, Dr. Booker Other Provider Yamel MENEDNEZ, Dr. Johnson Other Provider Manuel MENENDEZ, Dr. Doan Other Provider Niru LOTT, Dr. Kathleen Other Provider Nancy MENENDEZ, Dr. Sánchez Other Provider [phone] Tr MENENDEZ, Dr. Gutierres Other Provider [phone] Aris Black DO Other Provider Jeferson MENENDEZ, Dr. Barreto Other Provider Billy MENENDEZ, Dr. Pal Other Provider Chad MENENDEZ, Dr. Anastacia Ni Other Provider [phone] Dr. Gonzalo Sebastian DO Attending Provider Alesha HERNANDEZ-C, Ani Attending Provider Felecia MENENDEZ, Dr. Sudhir Monte Referring Provider Satnam MENENDEZ, Dr. Anguiano Primary Care Provider [phone] Satnam MENENDEZ, Dr. Anguiano Referring Provider Storm MENENDEZ, Dr. Gamez Emergency Provider Leigh MENENDEZ, Dr. Conde Other Provider Shannon MENENDEZ, Dr. Davis Other Provider Iron MENENDEZ, Dr. Frazier Other Provider Romulo LOTT, Dr. Sánchez Other Provider Lorenza MENENDEZ, Dr. Jackson Salas Other Provider [phone] Chris MENENDEZ, Dr. Rico Other Provider [phone] Kiko MENENDEZ, Dr. Harley Other Provider Robbie MENENDEZ, Dr. Urban Other Provider Randee MENENDEZ, Dr. Guillory Other Provider [phone] Silvio MENENDEZ, Dr. Kelley Other Provider [phone] Candido MENENDEZ, Dr. Sandoval Other Provider [phone] Brad MENENDEZ, Dr. Em Other Provider Fede MENENDEZ, Dr. Rodriguez Other Provider Unavailabl cherry Hurt MD, Dr. Ward Other Provider [phone] Conchita MENENDEZ, Dr. Booker Other Provider Yamel MENENDEZ, Dr. Johnson Other Provider [phone] Manuel MENENDEZ, Dr. Doan Other Provider [phone] Hever Marrufo DO Other Provider [phone] Nancy MENENDEZ, Dr. Sánchez Other Provider [phone] Tr MENENDEZ, Dr. Gutierres Other Provider [phone] Aris Black DO Other Provider Jeferson MENENDEZ, Dr. Barreto Other Provider Billy MENENDEZ, Dr. Pal Other Provider [phone] Romulo LOTT, Dr. Sánchez Attending Provider Patricia MENENDEZ, Dr. Valencia Referring Provider Patricia MENENDEZ, Dr. Valencia Emergency Provider de Nav DO, Dr. Paz Admit Provider Unavail able de Nav LOTT, Dr. Paz Attending Provider Unav ailable de Nav LOTT, Dr. Paz Other Provider Unavail able Timo MENENDEZ, Dr. Noel Other Provider Timo MENENDEZ, Dr. Noel Attending Provider SANTA GUERRERO Admitting Unavailable KLUSTY, MACARIO Referring Unavailable GANTA, MISBAH Primary Care Unavailable QUBTI, GURJIT Attending Unavailable GERSON MCCALL SANG Consulting Unavaila ble DANYEL, NGUYEN Referring Unavailable GANTA, MISBAH Primary Care Unavailable Satnam MENENDEZ, Dr. Anguiano Primary Care Provider [phone] Alesha POLYSTYRENE MOLDING MACHINE TENDER-CAni Attending Provider Satnam MENENDEZ, Dr. Anguiano Referring Provider Gabby Vela Attending Provider [phone] GANTA, MISBAH Primary Care Unavailable GANTA, MISBAH Attending Unavailable GANTA, MISBAH Primary Care Unavailable TARA YOUNGBLOOD Referring Unavailabl e GANTA, MISBAH Primary Care Unavailable TARA YOUNGBLOOD Attending Unavailabl e GANTA, MISBAH Primary Care Unavailable QUBTI, GURJIT Referring Unavailable GREERIRVINGI Attending Unavailable GANTA, MISBAH Primary Care Unavailable OLDER, SOILA Referring Unavailable GANTA, MISBAH Primary Care Unavailable OLDER, SOILA Referring Unavailable GANTA, MISBAH Primary Care Unavailable GANTA, MISBAH Attending Unavailable GANTA, MISBAH Primary Care Unavailable OLDER, SOILA Attending Unavailable GANTA, MISBAH Primary Care Unavailable GANTA, MISBAH Referring Unavailable GANTA, MISBAH Primary Care Unavailable GANTA, MISBAH Attending Unavailable GANTA, MISBAH Primary Care Unavailable Siddiki, Lara Referring Unavailable DIONICIO, RAFIU A Attending Unavailable GANTA, MISBAH Primary Care Unavailable OLDER, SOILA Attending Unavailable GANTA, MISBAH Primary Care Unavailable TARA YOUNGBLOOD Referring Unavailabl e GANTA, MISBAH Primary Care Unavailable NADEEN, JUAN Referring Unavailable EDUARD GALEANO Attending Unavailable GANTA, MISBAH Primary Care Unavailable GANTA, MISBAH Referring Unavailable GANTA, MISBAH Primary Care Unavailable GANTA, MISBAH Attending Unavailable GANTA, MISBAH Primary Care Unavailable OLDER, SOILA Referring Unavailable JUAN SENIOR Attending Unavailable GANTA, MISBAH Primary Care Unavailable OLDER, SOILA Referring Unavailable GANTA, MISBAH Primary Care Unavailable OLDER, SOILA Referring Unavailable GANTA, MISBAH Primary Care Unavailable OLDER, SOILA Referring Unavailable OLDER, SOILA Attending Unavailable Dr. Misbah Elkins MD Primary Care Provider Gabby Vela Referring Provider [phone] Aleta Aguayo Consulting Unavailable Aleta Aguayo Admitting Unavailable Koram, Anastacia Raine Attending Unavailable Ganta, Misbah Primary Care Unavailable Elton Abraham Consulting Unavailable Shannon, Ryan Consulting Unavailable Freddie Perdue Consulting Unavailable Gonzalo Sebastian Consulting Unavailable Jackson Britt Consulting Unavailable Jacky Perez Consulting Unavailable Cricket Hoover Consulting Unavailable Rajni Avalos Consulting UnavailKahlil Garcia Consulting Unavailable Warren Anguiano Consulting Unavailable Jaime Rey Consulting Unavailable Maria Antonia Salinas Consulting Unavailable Michael Mistry Consulting Unavailable Sylvia Hurt Consulting Unavailable Conchita, Jhony Consulting Unavailable Alex Montesinos Consulting Unavailable Franki Jackson Consulting Unavailable Hever Marrufo Consulting Unavailable Gonzalo Cruz Consulting Unavailable Nenita Armando Consulting Unavailable Aris Black Consulting Unavailable Estevan Govea Consulting Unavailable Demarco Cervantes Consulting Unavailable Yrn Kahn Consulting Unavailable Koram, Anastacia Raine Consulting Unavailable Alesha POLYSTYRENE MOLDING MACHINE TENDER, Ani Referring Unavailable Alesha POLYSTYRENE MOLDING MACHINE TENDER, Ani Attending Unavailable Ganta, Misbah Primary Care Unavailable Marshal Segura Attending Unavailable Ganta, Misbah Primary Care Unavailable Ganta, Misbah Primary Care Unavailable Gabby Martinez Attending Unavailable Gabby Martinez Referring Unavailable Gonzalo Sebastian Attending Unavailable Yrn Kahn Referring Unavailable Ganta, Misbah Primary Care Unavailable Sudhir Izquierdo Attending Unavailable Pako Fernández Admitting Unavailable Pako Fernández Consulting Unavailable Elton Abraham Consulting Unavailable Shannon, Ryan Consulting Unavailable Freddie Perdue Consulting Unavailable Gonzalo Sebastian Consulting Unavailable Jackson Britt Consulting Unavailable Jacky Perez Consulting Unavailable Kiko, Cricket Consulting Unavailable Habtegebriel, Rajni Consulting Unavailab le Dand, Kahlil Consulting Unavailable Anguiano, Warren Consulting Unavailable Rey, Jaime Consulting Unavailable Brad, Maria Antonia Consulting Unavailable Aljundi, Lamia Consulting Unavailable Hurt, Sylvia Consulting Unavailable Conchita, Jhony Consulting Unavailable Irukulla, Alex Consulting Unavailable Manuel, Franki Consulting Unavailable Dhesi, Hever Consulting Unavailable Cruz, Sujoy Consulting Unavailable Krakow, Soleyah Consulting Unavailable Fernstrom, Aris Consulting Unavailable Jeferson, Estevan Consulting Unavailable Demarco Cervantes Consulting Unavailable [facility] Unavailable Gabby Martinez Referring Unavailable Gabby Martinez Attending Unavailable Alesha POLYSTYRENE MOLDING MACHINE TENDER, Ani Referring Unavailable Alesha POLYSTYRENE MOLDING MACHINE TENDER, Ani Attending Unavailable [facility] Unavailable Erik Gomez Referring Unavailable [facility] Unavailable Sudhir Izquierdo Attending Unavailable Jackson Monk Consulting Unavailable Jackson Monk Admitting Unavailable Bert Greenwood Consulting Unavailable [facility] Unavailable Víctor Huerta Attending Unavailable Gonzalo Sebastian Attending Unavailable [facility] Unavailable Sudhir Izquierdo Referring Unavailable Pako Fernández Admitting Unavailable Pako Fernández Consulting Unavailable Elton Abraham Consulting Unavailable Ryan Ortega Consulting Unavailable Freddie Perdue Consulting Unavailable Gonzalo Sebastian Consulting Unavailable Jackson Britt Consulting Unavailable Jacky Perez Consulting Unavailable Kiko, Cricket Consulting Unavailable Habtegebriel, Rajni Consulting Unavailab le Dand, Kahlil Consulting Unavailable Anguiano, Warren Consulting Unavailable Candido, Jaime Consulting Unavailable Brad, Maria Antonia Consulting Unavailable Aljundi, Lamia Consulting Unavailable Hurt, Sylvia Consulting Unavailable Conchita, Jhony Consulting Unavailable Irukulla, Alex Consulting Unavailable Manule, Franki Consulting Unavailable Dhesi, Hever Consulting Unavailable Cruz, Sujoy Consulting Unavailable Krakow, Soleyah Consulting Unavailable Fernstrom, Aris Consulting Unavailable Jeferson, Estevan Consulting Unavailable Demarco Cervantes Consulting Unavailable Sudhir Izquierdo Consulting Unavailable Sudhir Izquierdo Attending Unavailable Yrn Kahn Attending Unavailable [facility] Unavailable Franco Inman Attending Unavailable Ganta, Misbah Primary Care Unavailable Franco Inman Attending Unavailable Ganta, Misbah Primary Care Unavailable Mo Velasco Attending Unavailable Aleta Aguayo Attending Unavailable Aleta Aguayo Consulting Unavailable Aleta Aguayo Admitting Unavailable Koram, Anastacia Raine Attending Unavailable Ganta, Misbah Primary Care Unavailable Yrn Kahn Consulting Unavailable Leandro Sanchez Attending Unavailable Ganta, Misbah Primary Care Unavailable Daniel, Leandro Referring Unavailable Koram, Anastacia Raine Referring Unavailable aMrshal Segura Attending Unavailable Ganta, Misbah Primary Care Unavailable Pako Fernández Attending Unavailable Sudhir Izquierdo Attending Unavailable Jackson Monk Admitting Unavailable Erik Gomez Referring Unavailable Jackson Monk Consulting Unavailable Ganta, Misbah Primary Care Unavailable Bert Greenwood Consulting Unavailable Sudhir Izquierdo Consulting Unavailable Jacksno Monk Attending Unavailable Bert Greenwood Attending Unavailable Brock POLYSTYRENE MOLDING MACHINE TENDER, Anat Referring Unavailable Brock POLYSTYRENE MOLDING MACHINE TENDER, Anat Primary Care Unavailable Alesha POLYSTYRENE MOLDING MACHINE TENDER, Ani Attending Unavailable Ganta, Misbah Primary Care Unavailable Ganta, Misbah Referring Unavailable Gabby Martinez Attending Unavailable Eduardo POLYSTYRENE MOLDING MACHINE TENDER, Ani Attending Unavailable Brock POLYSTYRENE MOLDING MACHINE TENDER, Anat Referring Unavailable Ganta, Misbah Primary Care Unavailable Alesha POLYSTYRENE MOLDING MACHINE TENDER, Ani Attending Unavailable Ganta, Misbah Primary Care Unavailable Ganta, Misbah Referring Unavailable Ganta, Misbah Primary Care Unavailable Alesha POLYSTYRENE MOLDING MACHINE TENDER, Ani Attending Unavailable Ganta, Misbah Referring Unavailable Ganta, Misbah Referring Unavailable Ganta, Misbah Primary Care Unavailable Gabby Martinez Attending Unavailable Eduardo POLYSTYRENE MOLDING MACHINE TENDER, Ani Referring Unavailable Gonzalo Sebastian Attending Unavailable Ganta, Misbah Primary Care Unavailable Bridgette Gaxiola Attending Unavailabl e Ganta, Misbah Primary Care Unavailable Allergies Allergy Classification Reported Allergen(s) Allergy Type Date of Onset Reaction(s) Facility (20 sources) diazePAM; Translations: [DIAZEPAM] Drug Allergy 11-02-19 14 Other: See Comments [facility] Work Phone: (20 sources) HYDROcodone; Translations: [HYDROCODONE] Drug Allergy 08-02-20 20 Itching [facility] Work Phone: (20 sources) Penicillins; Translations: [PENICILLINS] Drug Allergy 07-07-20 06 Other: See Comments [facility] Work Phone: (20 sources) Penicillins Drug Allergy 07-07-20 Other: See Comments [facility] Work Phone: (20 sources) Penicillins Allergy to substance 01-17-20 22 [facility] (6 sources) Acetaminophen / HYDROcodone; Translations: [ACETAMINOPHEN-HYDR OCODONE] Drug Allergy 10-21-19 23 [facility] Work Phone: (5 sources) Penicillins Propensity to adverse reactions to drug 10-21-19 23 [facility] (1 source) Penicillin Drug Allergy 09-28-18 73 [facility] (20 sources) Sulfamethoxazole / Trimethoprim; Translations: [SULFAMETHOXAZOLE-T RIMETHOPRIM] Drug Allergy 11-29-19 23 [facility] Work Phone: (1 source) Piperacillin / tazobactam; Translations: [Zosyn] Drug Allergy [facility] Work Phone: (19 sources) Sulfamethoxazole Drug Allergy 07-08-20 23 Other [facility] (19 sources) Trimethoprim Drug Allergy 07-08-20 23 Other [facility] (18 sources) Clindamycin Drug Allergy 01-02-20 24 [facility] (20 sources) Penicillins Drug Allergy 07-07-20 06 Other: See Comments [facility] Work Phone: (1 source) Clindamycin Drug Allergy 04-15-20 25 [facility] (1 source) HYDROcodone Drug Allergy 04-15-20 25 [facility] (1 source) Penicillins Drug allergy (disorder) 04-15-20 25 [facility] (1 source) Sulfamethoxazole Drug Allergy 04-15-20 25 [facility] (1 source) Trimethoprim Drug Allergy 04-15-20 25 [facility] Medications Current Medications Medication Drug Class(es) Dates Sig (Normalized) Sig (Original) [id number] 200 actuat albuterol 0.09 mg/actuat metered dose [...] (20 sources) Dihydropyridine Calcium Channel [place] Start: 03-13-2025 Start: 01-12-2024 End: 11-07-2024 take 1 tablet by mouth once daily amLODIPine (NORVASC) 5 mg tablet Indications: Essential hypertension Take 1 tablet by mouth once daily. 30 tablet 5 11/07/2024 Active Start: 01-05-2024 End: 03-13-2025 Start: 10-31-2022 End: 01-12-2024 amLODIPine Besyl ate 10 MG Oral Tablet Quantity: 0 Refills: 0 Ordered: 22-Dec-2022 DO Active Comment on above: Take 1 tablet by diya th once daily. ARIPiprazole 5 mg oral table t (20 sources) Atypical Antipsychotic Start: 01-22-2021 ARIPiprazole TAB S Quantity: 0 Refills: 0 Ordered: 22-Dec-2022 DO Active Comment on above: Take by mouth. Blood Pressure Monitor (20 sources) Start: 01-12-2024 [...] Comment on above: Home blood pressure monitor Yyyezfksbe-Kdazydpf-Typzsbje ol (20 sources) Corticosteroid, beta2-Adrenergic Agonist Start: 04-10-2025 Start: 04-10-2025 End: 04-10-2025 Start: 12-23-2024 End: 04-10-2025 Start: 12-23-2024 cholecalciferol 0.05 mg oral capsule (20 sources) Vitamin D Start: 12-29-2018 End: 10-28-2024 Start: 12-29-2018 Cholecalcifero l (Vitamin D3) 2,000 [...] mg/ml ophthalmic solution (1 source) Plasma Volume Production Sampler, Non-Standardized Chemical Allergen Start: 10-29-19 End: 11-28-19 take 1 drop(s) into the eye(s) four times daily Artificial Tears ophthalmic solution ; 1 drop(s) in each eye 4 times a day PRN.ADOD - 2/1Meds to Beds - .Patient Location [address] [address]26 Quantity: 1 Refills: 0 Ordered: [...] diya one time only for 1 dose. 12 hr guaiFENesin 600 mg extended release oral tablet (7 sources) Start: 0 End: 2 take 2 tablets by mouth twice daily guaiFENesin (MUCINEX) 600 mg 12 hr tablet Take 2 tablets by mouth twice daily. 0 06/19/2020 04/17/2022 Discontinued (Discontinued by Patient) Comment on above: Take [address] [facility] twice daily. 12 hr guaiFENesin 1200 mg / pseudoephedrine hydrochloride 120 mg extended release oral tablet (20 sources) alpha-Adrenergic Agonist Start: take 120-1200 mg by mouth every twelve [...] for cold SYMPTOMS hydrOXYzine pamoate 25 mg or al capsule (20 sources) Antihistamine Start: 04-10-2025 Start: 11-07-2024 End: 04-16-2025 Start: 10-28-2022 End: 11-04-2022 take 1 tablet by mouth every six hours as needed hydrOXYzine hydrochloride 25 mg oral tablet ; 1 tab(s) orally every 6 hours, As needed, ITCHING-.ADOD - .10/28Meds to Beds .Patient Location [address] [address]PRN Reason: Anxiety Quantity: 32 Refills: 0 Ordered: 28-Oct-2022 Donn Trammell Start: 28-Oct-2022 End: 04-Nov-2022 Generic Substitution Allowed Start: 06-12-2021 End: 03-21-2025 Start: 06-12-2021 take 25 mg by mouth [...] test) (1 source) Start: 08-15-2024 End: 08-16-2024 iv contrast (will be provided with radiology [...] (20 sources) Angiotensin Converting Enzyme Inhibitor Start: 07-12-2021 End: 03-21-2025 Start: 08-12-2020 End: 01-16-2022 Start: 08-12-2020 End: [...] with food. Take 1 tablet by diya once daily. With food. metoprolol tartrate 25 mg or al tablet (20 sources) beta-Adrenergic [place] Start: 01-05-2024 End: 11-07-2025 Start: 01-05-2024 Metoprolol Tar trate 25 mg Tablet Active 25 mg PO TWICE A DAY January 05, 2024 12:00am Hold for heart less than 50 or systolic blood pressure less than 100 mmHg. Comment on above: Take 1 tablet by diya two times a day. Take 25 mg by mouth. (hold for heart rate less then 50 or systolic blood pressure less than 100 mmHG. mirtazapine 45 mg oral table t (20 sources) Start: 01-16-2022 Start: 08-12-2020 End: 01-16-2022 Start: 08-12-2020 End: [...] Start: 04-18-2021 take 1 tablet by diya once daily multivitamin tablet Take 1 tablet by mouth once daily. 30 tablet 04/18/2021 Active Comment on above: Take 1 tablet by diya once daily. 24 hr nicotine 0.583 mg/hr [...] - 10/29/22.Meds to Beds - .Patient Location [address] [address]26 Quantity: 14 Refills: 0 Ordered: [...] applying a new patch. ondansetron 4 mg disintegrat ing oral tablet (20 sources) Serotonin-3 Receptor Antagonist Start: 02-26-2025 Start: 04-17-2022 End: 01-02-2025 Start: 06-19-2020 End: 04-17-2022 take 1 tablet [...] THERAPY, (20 sources) OXYGEN, HOME THE RAPY, 5 L/min by Nasal Cannula route as directed. Patient is on 5 L/min continuous Active OXYGEN, HOME THE RAPY, Inhale as [...] tablet (20 sources) Proton Pump Inhibitor Start: 03-13-2025 Start: 08-12-2020 End: 12-16-2024 Pantoprazole Sod ium 40 MG Oral Tablet Delayed Release Quantity: 0 Refills: 0 Ordered: 22-Dec-2022 DO Active take 40 mg by mouth once daily p antoprazole (PROTONIX) 40 MG PACK oral packet Take 40 mg by mouth daily. 0 Suspended Comment on above: TAKE 1 TABLET BY DIYA TH DAILY Take 1 tablet by diya th once daily. simvastatin 20 mg oral table t (20 sources) HMG-CoA Reductase Inhibitor Start: 03-13-2025 Start: 09-18-2021 End: 01-24-2025 Simvastatin 20 M G Oral Tablet Quantity: [...] inally daily at bedtime for 3 days. ziprasidone 40 mg oral capsule (20 sources) Atypical Antipsychotic Start: 4 take 1 capsule by mouth every twenty-four [...] oxyCO DONE hydrochloride 5 mg oral tablet (20 sources) Opioid Agonist Start: 06-15-2021 End: 01-16-2022 Start: 06-15-2021 End: 01-16-2022 Oxycodone-Acetaminophen (End ocet) 5-325 mg tablet Discontinued 1 {tbl} PO EVERY 6 HOURS as needed for pain 14 02June 15, 2021 January 16, 2022 9:33am 20 ml albumin human, senior living 250 mg/ml injection (1 source) Human Serum [...] breathing returns to target peak flow/parameters amylase 546864 unt / lipase 44398 unt / protease 25336 unt delayed release oral capsule (20 sources) Start: 11-01-2022 take 57471-00505 capsules by mouth three times daily at mealtime Scwwct-Gvryopnc-Nojamid (Creon) 24,000-76,000 -120,000 unit capsule,delayed release(DR/EC) Active 1 CAP PO 3 TIMES DAILY WITH MEALS November 01, 2022 1:00am Start: 03-26-2021 End: 01-26-2024 take [id number] capsules by mouth twice daily Tcpcuf-Jrueyodx-Vgcrzdi (Creon) 24,000-76,000 -120,000 unit capsule,delayed release(DR/EC) Discontinued 2 NMA PO TWICE A DAY November 01, 2022 1:00am January 26, 2024 11:52am Start: 12-10-2019 End: 12-19-2024 Start: 12-10-2019 Lipase-Proteas e-Amylase Active 3 EACH PO TWICE A DAY December 10, 2019 6:59am Comment on above: Take 3 capsules by m outh twice daily with meals. Take 3 capsules by m outh once daily. Orntouu-Srfhao-Nurohyic (CREON 10 ORAL) (1 source) Favbavr-Fedgps-X rotea se (CREON 10 ORAL) Take 24,000 Units by mouth. 0 Suspended atropine sulfate 0.025 mg / diphenoxylate hydrochloride 2.5 mg oral tablet (20 sources) Anticholinergic, Cholinergic Muscarinic Antagonist, Antidiarrheal Start: 10-13-2013 End: 10-28-2013 Start: 10-13-2013 End: 10-28-2013 Diphenoxylate-Atropine (Lomo til 2.5-0.025 Mg Tablet) 1 EACH tablet Discontinued 1 NMA PO 4 TIMES DAILY NEEDED as needed for Diarrhea October 13, 2013 1:00am October 28, 2013 12:28pm azithromycin 250 mg oral tab let (20 sources) Macrolide Antimicrobial Start: 05-13-2019 End: 07-12-2019 [...] 11:00pm Start: 01-22-2021 take 1 capsule by [facility] twice daily Benzonatate (Tessalon Perles) 100 mg capsule Active 100 MG PO TWICE A DAY January 22, 2021 9:57pm Comment on above: Take 100 mg by mouth three times daily as needed. Take 200 mg by mouth three times a day as needed. Budesonide-Formote rol (20 sources) Corticosteroid, beta2-Adrenergic Agonist Start: 11-14-2020 End: [...] Comment on above: Take 1 tablet by [facility] three times daily. calcium chloride 0.0014 meq/ml [...] goal. dicyclomine hydrochloride 10 mg oral capsule (20 sources) Anticholinergic Start: 2018 End: 2019 Start: [...] as needed. erythromycin 0.005 mg/mg ophthalmic ointment (20 sources) Macrolide, Macrolide Antimicrobial Start: 10-29-2022 End: 06-30-2023 escitalopram 10 mg oral tabl et (10 sources) Serotonin Reuptake Inhibitor Start: 04-16-2025 End: 04-16-2025 Start: 05-18-2024 End: 08-05-2024 take 1 tablet by mouth once daily, [...] mg/ml injection (3 sources) Opioid Agonist Start: 03-16-2025 End: 03-15-2025 25 mcg, INTRAVENOUS, [...] 11:53am August 30, 2021 12:26pm Fluticasone Propion-Salmeterol (20 sources) Corticosteroid , beta2-Adrenerg ic Agonist Start: [...] 20, 2019 12:00am April 05, 2020 10:01am Nbvmgvptkdl-Ibcovhvhy-Bvlqqa er (20 sources) Anticholinergic, Corticosteroid, beta2-Adrenergic Agonist Start: 06-30-2023 End: 01-26-2024 Start: 06-30-2023 End: 01-26-2024 Uinyllkyzjp-Jlmgwxqqh-Ypnodv er (Trelegy Ellipta) 100-62.5-25 mcg blister with [...] 06-12-2021 End: 09-10-2021 Start: 06-12-2021 End: 09-10-2021 Hqilncyslrg-Eraapdzhd-Pzifhq er (Trelegy Ellipta) 100-62.5-25 mcg blister with device Discontinued 1 NMA INHALATION DAILY June 12, 2021 2:44am September 10, 2021 10:54am Start: 06-12-2021 End: 09-10-2021 Dinvrkqgwdz-Cuopcbwlo-Jbmurv er (Trelegy Ellipta) 100-62.5-25 mcg blister with device Discontinued 1 INH INHALATION DAILY June 12, 2021 1:44am September 10, 2021 9:54am Start: 06-12-2021 End: 09-10-2021 Bwjdozggleu-Hfqleyegy-Gudehi er (Trelegy Ellipta) 100-62.5-25 mcg blister with device Discontinued 1 INH INHALATION DAILY June 12, 2021 2:44am September 10, 2021 10:54am Start: 03-29-2021 End: 06-12-2021 Gkwcvoqeckp-Zquclvcta-Fywrjr er (Trelegy Ellipta) 100-62.5-25 mcg blister with device Discontinued 1 INH INHALATION DAILY March 29, 2021 11:35am June 12, 2021 2:44am Start: 03-29-2021 End: 06-12-2021 Start: 03-29-2021 End: 06-12-2021 Uokkkjgewdl-Euwrmlzpu-Ttkjve er (Trelegy Ellipta) 100-62.5-25 mcg blister with device Discontinued 1 NMA INHALATION DAILY March 29, 2021 12:00am June 12, 2021 2:44am Start: 03-29-2021 End: 06-12-2021 Hpbdtgqjwaj-Qczggvgfu-Fknmml er (Trelegy Ellipta) 100-62.5-25 mcg blister with device Discontinued 1 INH INHALATION DAILY 60 March 28, 2021 11:00pm June 12, 2021 1:44am Start: 03-29-2021 End: 06-12-2021 Itynsyndlqt-Gbodpgabe-Wkoyhg er (Trelegy Ellipta) 100-62.5-25 mcg blister with device Discontinued 1 INH INHALATION DAILY March 29, 2021 12:00am June 12, 2021 2:44am Start: 04-06-2020 End: 04-15-2023 sdqbaxippru-yxqerbbcm-sbkmhy er (TRELEGY ELLIPTA) 100-62.5-25 mcg inhalation powder DAILY 04/06/2020 04/15/2023 Discontinued Comment on above: DAILY Fluticasone Furoate-Vilanterol (20 sources) Corticosteroid, beta2-Adrenergic Agonist Start: 06-16-2019 End: [...] water and spit out; do not swallow Savdfjsevxm-Bfgbynouv-Hahrvy er (20 sources) Start: 08-29-2024 End: 12-23-2024 Start: 08-29-2024 Fluticasone-Um eclidin-Vilanter (Trelegy Ellipta) 200-62.5-25 mcg blister with device Active 1 NMA INHALATION DAILY August 29, 2024 10:29am Start: 05-11-2024 End: 08-29-2024 Start: 05-11-2024 End: 08-29-2024 Fsfzjjyxiqs-Bzsrkysjt-Lqwaqq er (Trelegy Ellipta) 200-62.5-25 mcg blister with device Discontinued 1 NMA INHALATION DAILY May 11, 2024 1:32pm August 29, 2024 10:29am Start: 01-26-2024 End: 05-11-2024 Start: 01-26-2024 End: 05-11-2024 Fnzramvcnja-Pohyxkjqt-Gwshxl er (Trelegy Ellipta) 200-62.5-25 mcg blister with device Discontinued 1 NMA INHALATION DAILY January 26, 2024 12:00am May 11, 2024 [...] 31, 2018 12:00am January 30, 2019 12:08am gabapentin 300 mg oral capsu le (20 sources) Anti-epileptic Agent Start: 02-08-2025 End: 04-26-2025 Start: 01-09-2025 End: 03-05-2025 hydroCHLOROthiazide 12.5 mg oral capsule (18 sources) Thiazide Diuretic Start: 01-05-2024 End: 12-16-2024 Start: 01-05-2024 Hydrochlorothi azide 12.5 mg Capsule Active 12.5 mg PO WITH BREAKFAST January 05, 2024 12:00am Hold for SBP less than 130 mmHg Comment on above: TAKE 1 CAPSULE BY MO [facility] EVERY DAY with breakfast for 30 days; Hold for SBP less than 130 mmHg ibuprofen 400 mg oral tablet (20 sources) Nonsteroidal Anti-inflammatory Drug Start: 1 End: 2 take 1 tablet by mouth [...] above: TAKE 1 TABLET BY DIYA TH EVERY SIX HOURS NEEDED levoFLOXacin 500 mg [...] above: Take 1 capsule by mo uth four times daily as needed for diarrhea. [...] Start: 04-19-2019 take 0.5-1 mg by diya th once daily as needed Lorazepam Active 0.5 - 1 MG PO DAILY NEEDED April 18, 2019 11:00pm Start: 07-28-2013 End: 10-28-2013 Comment on above: Take 1 tablet by [facility] two times a day for 30 days. Take 1 tablet by [facility] once daily. naproxen 500 mg oral tablet (20 sources) Nonsteroidal Anti-inflammatory Drug Start: 10-13-2013 End: [...] mcg/min and titrate per order parameters. nystatin 081098 unt/ml oral suspension (20 sources) Polyene Antifungal [...] gone. oxyCODONE hydrochloride 5 mg oral tablet (20 sources) Opioid Agonist Start: 04-19-2025 End: 05-02-2025 Start: 04-19-2025 End: 04-24-2025 take 1 tablet by mouth every six hours as needed for pain oxyCODONE IR (ROXICODONE) 5 mg immediate release tablet Indications: Chronic recurrent pancreatitis (HCC) Take 1 tablet by mouth every 6 hours as needed for pain for up to 3 days. 10 tablet 04/21/2025 04/24/2025 Active Start: 07-08-2023 End: 01-05-2024 Start: 10-28-2022 End: 10-31-2022 take 1 tablet by mouth every six hours as needed oxyCODONE 5 mg oral tablet ; 1 tab(s) orally every 6 hours, As Needed -Pain - Severe (7-10) - G89.1.ADOD - .10/28Meds to Beds - .Patient Location [address] [address]26 Quantity: 16 Refills: 0 Ordered: 28-Oct-2022 Katina Booker Start: 28-Oct-2022 End: 31-Oct-2022 Generic Substitution Allowed polyvinyl alcohol 0.014 ml/m l ophthalmic solution (20 sources) Start: 11-01-2022 End: 06-30-2023 predniSONE 20 [...] mg / trimethoprim 160 mg oral tablet (20 sources) Dihydrofolate Reductase Inhibitor Antibacterial, Sulfonamide Antimicrobial [...] of water. thiamine 100 mg oral tablet (20 sources) Start: 04-22-2019 End: 07-12-2019 60 actuat tiotropium 0.0025 mg/actuat inhalation spray (20 sources) Anticholinergic Start: 11-14-2020 End: 03-29-2021 Start: 11-14-2020 End: 03-29-2021 take 2.5 ug by inhalation once daily Tiotropium [place] (Spiriva Respimat) 2.5 mcg/actuation mist Discontinued 2 NMA INHALATION daily November 14, 2020 1:00am March 29, 2021 11:33am administer at approximately the same time(s) each day Start: 11-14-2020 End: 03-29-2021 take 1 puff(s) by inhalation once daily Tiotropium [place] (Spiriva Respimat) 2.5 mcg/actuation mist Discontinued 2 PUFF INHALATION daily November 14, 2020 1:00am March 29, 2021 11:33am administer at approximately the same time(s) each day traMADol hydrochloride 50 mg oral tablet (20 sources) Opioid Agonist Start: 12-24-2024 End: 05-02-2025 Start: 12-19-2024 End: 12-22-2024 take 1 tablet [...] PO Q8H as needed for pain 10 3 January 05, 2024 12:00am January 19, 2024 [...] 01/28/2024 Comment on above: Take by mouth. vasopressin 20 Units in D5W 100 mL (VASOSTRICT) (1 source) Start: 03-16-2025 End: 03-16-2025 0.04 Units/min (12 mL/hr), INTRAVENOUS, CONTINUOUS, Starting on Nora 03/16/25 at 0600, Until Nora 03/16/25 at 0705, Exp: (18 HR) - Central Line Only Problems Active Problems Problem Classification Problem Date Documented Da te Episodic/Chronic Abdominal pain (20 sources) Right upper quadrant pain; Translations: [Right upper quadrant pain] Onset: 4 01-16-2022 Episodic Acute and unspecified renal failure (20 sources) [...] uncomplicated] Onset: 5 12-10-2019 Chronic Cardiac dysrhythmias (16 sources) Tachycardia; Translations: [Tachycardia, unspecified] Onset: 5 12-16-2023 Episodic Chronic obstructive pulmonary disease and bronchiectasis (20 sources) Chronic obstructive lung disease; Translations: [Chronic obstructive pulmonary disease, unspecified] Onset: 2 04-19-2019 Chronic Deficiency and other anemia (20 sources) Anemia; Translations: [Anemia, unspecified] 02-01-2019 Episodic Diseases of white blood cells (20 sources) Leukocytosis; Translations: [Elevated white blood cell [...] 11-24-2014 Chronic Gout and other crystal arthropathies (20 sources) Acute gout; Translations: [Gout, unspecified] Onset: 5 06-10-2024 Chronic Hypertension with complications and secondary hypertension (12 sources) Hypertensive urgency ; Translations: [Hypertensive urgency] Onset: 5 04-16-2025 Chronic Inflammation; infection of eye (except that caused by tuberculosis or sexually transmitteddisease) (7 sources) Inflammation of orbit; 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] Onset: 3 Chronic Inflammation; infection of eye (except that caused by tuberculosis or sexually transmitteddisease) (20 sources) Orbital cellulitis; Translations: [Cellulitis of right orbit] Onset: 3 10-19-2022 Episodic Intestinal infection (2 sources) Viral gastroenteritis due to [place]-like agent; Translations: [Acute gastroenteropathy due to [place] agent] Onset: 5 04-10-2025 Episodic Malaise and [...] Candidiasis of mouth; Translations: [Candidal stomatitis] Episodic Nausea and vomiting (20 sources) Nausea and vomiting; Translations: [Nausea with vomiting, unspecified] Onset: 3 11-01-2022 Episodic Nutritional deficiencies (1 source) Iron deficiency; Translations: [Iron deficiency] Episodic Occlusion or stenosis of precerebral arteries (3 sources) Left carotid artery stenosis; Translations: [Occlusion and stenosis of left carotid artery] Onset: 5 04-25-2025 Chronic Osteoarthritis (20 sources) Arthritis; Translations: [Unspecified osteoarthritis, unspecified site] 12-10-2019 Chronic Other aftercare (4 sources) Post-discharge follow-up; Translations: [Encounter for follow-up examination after completed treatment for conditions other than malignant neoplasm] 12-19-2024 Episodic Other circulatory disease (20 sources) Stenosis of left subclavian artery; Translations: [Stricture of artery] 12-04-2024 Chronic Other circulatory disease (2 sources) Stricture of artery; Translations: [Subclavian arterial stenosis] Onset: 5 Chronic Other circulatory disease (1 source) H/O: hypertension; Translations: [Personal history of other diseases of circulatory system] Episodic Other connective tissue disease (16 sources) Foot pain; Translations: [Pain in right foot] 01-19-2024 Episodic Other connective tissue disease (15 sources) Swelling of right foot; Translations: [Other specified soft tissue disorders] 06-10-2024 Episodic Other connective tissue disease (15 sources) H/O: back problem; Translations: [Personal history of other diseases of the musculoskeletal system and connective tissue] 09-26-2019 Episodic Other eye disorders (1 source) Entropion of right lower eyelid; Translations: [Entropion, unspecified] 10-28-2022 Episodic Other gastrointestinal disorders (20 sources) Irritable bowel syndrome; Translations: [Mixed irritable bowel syndrome] Onset: 7 08-27-2017 Chronic Other gastrointestinal disorders (1 source) Irritable bowel syndrome without diarrhea; Translations: [Irritable bowel syndrome, unspecified] Onset: Chronic Other gastrointestinal disorders (20 sources) Diarrhea; Translations: [Diarrhea, unspecified] 12-10-2019 Episodic Other gastrointestinal disorders (13 sources) History of pancreatitis; Translations: [Personal history of other diseases of digestive system] 12-24-2024 Episodic Other gastrointestinal disorders (20 sources) Dysphagia; Translations: [Dysphagia, unspecified] 12-19-2024 Episodic Other gastrointestinal disorders (6 sources) Loose stool; Translations: [Other fecal abnormalities] 04-26-2025 Episodic Other gastrointestinal disorders (1 source) Other fecal abnormalities; Translations: [Other fecal abnormalities] Onset: Episodic Other liver diseases (2 sources) High lipase level in serum; Translations: [Abnormal levels of other serum enzymes] 08-15-2024 Episodic Other lower respiratory disease (1 source) Lung mass; Translations: [Other nonspecific abnormal finding of lung field] Episodic Other lower respiratory disease (12 sources) Dyspnea; Translations: [Shortness of breath] 08-10-2024 [...] unspecified joint] Episodic Other non-traumatic joint disorders (16 sources) Swollen ankle region; Translations: [Effusion, right ankle] 01-19-2024 Episodic Other non-traumatic joint disorders (2 sources) Acute ankle pain; Translations: [Pain in right ankle and joints of right foot] 01-25-2024 Episodic Other nutritional; endocrine; and metabolic disorders (17 sources) Hypomagnesemia; Translations: [Hypomagnesemia] Onset: 5 03-16-2025 Chronic Other nutritional; endocrine; and metabolic disorders (15 sources) Hypophosphatemia; Translations: [Other disorders of phosphorus metabolism] Onset: 5 03-17-2025 Chronic Other nutritional; endocrine; and metabolic disorders (20 sources) Unintentional weight loss; Translations: [Abnormal weight loss] 02-01-2019 Episodic Other screening for suspected conditions (not mental disorders or infectious disease) (8 sources) Patient encounter status; Translations: [Encounter for screening mammogram for malignant neoplasm of breast] Episodic Other upper respiratory infections (20 sources) Sinusitis; Translations: [Chronic sinusitis, unspecified] 06-02-2023 Chronic Other upper respiratory infections (15 sources) Viral upper respiratory tract infection; Translations: [...] or infection, unspecified] Onset: 4 02-01-2019 Episodic Peripheral and visceral atherosclerosis (2 sources) Subclavian artery stenosis; Translations: [Stricture of artery] 04-25-2025 Chronic Pleurisy; pneumothorax; pulmonary collapse (20 sources) Pleurisy; Translations: [Pleurisy] 01-02-2024 Episodic Pneumonia (except that caused by tuberculosis or sexually transmitted disease) (20 sources) Community acquired pneumonia; Translations: [Pneumonia, unspecified organism] Onset: 5 03-11-2022 Episodic Residual codes; unclassified (20 sources) Hypersomnia; Translations: [Hypersomnia, unspecified] 09-26-2019 Chronic Comment on above: May need PSG in futu re. Residual codes; unclassified (11 sources) Device in situ; Translations: [Presence of other specified functional implants] 04-10-2025 Chronic Residual codes; unclassified (2 sources) Presence of other specified functional implants; Translations: [Presence of pancreatic duct stent] Onset: 5 Chronic Residual codes; unclassified (20 sources) Noncompliance with medication regimen; Translations: [Patient's other noncompliance with medication regimen] 03-29-2021 Episodic Residual codes; unclassified (20 sources) Tobacco user; Translations: [Tobacco use] Onset: 3 02-01-2019 Episodic Residual codes; unclassified (20 sources) History of colonoscopy; Translations: [Other specified postprocedural states] 04-20-2019 Episodic Residual codes; unclassified (3 sources) Insomnia; Translations: [Insomnia, unspecified] 04-15-2023 Episodic Residual codes; unclassified (1 source) Other specified postprocedural states; Translations: [Other specified postprocedural states] Onset: 5 Episodic Respiratory failure; insufficiency; arrest (adult) (20 sources) Chronic hypoxemic respiratory failure; Translations: [Chronic respiratory failure with hypoxia] Onset: 3 Chronic Respiratory failure; insufficiency; arrest (adult) (2 sources) Respiratory failure; insufficiency; arrest (adult) 10-27-2022 Screening and history of mental health and substance abuse codes (11 sources) Tobacco use and exposure - finding; Translations: [Personal history of nicotine dependence] Onset: 5 04-16-2025 Episodic Septicemia (except in labor) (17 sources) Septic shock; Translations: [Sepsis, unspecified organism] [...] (1 source) Drug rash 10-29-2022 Viral infection (20 sources) Human papilloma virus infection; Translations: [Papillomavirus as the cause of diseases classified elsewhere] 02-01-2019 Episodic Past or Other Problems Problem Classification Problem Date Documented Da te Episodic/Chronic Allergic reactions (3 sources) Eruption due to drug; Translations: [Dermatitis due to drugs and medicines taken internally] Onset: 10-29-2022 10-29-2022 Episodic Biliary tract disease (20 sources) Acute cholecystitis; Translations: [Acute cholecystitis] Onset: 12-24-2024 06-12-2021 Episodic Blindness and vision defects (2 sources) Other visual disturbances; Translations: [Diplopia] Onset: 10-29-2022 Episodic Diabetes mellitus without complication (4 sources) Prediabetes; Translations: [Prediabetes] Onset: 08-12-2024 Episodic E Codes: Adverse effects of medical [...] of urination; Translations: [Frequency of micturition] Onset: 08-12-2024 08-10-2024 Episodic Immunizations and screening for infectious disease (2 sources) Needs influenza immunization; Translations: [Encounter for immunization] Onset: 08-05-2024 Episodic Nutritional deficiencies (20 sources) Deficiency of macronutrients; Translations: [Unspecified severe protein-calorie malnutrition] Onset: 01-07-2019 Resolved: 12-26-2022 01-07-2019 Chronic Other aftercare (1 source) 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; Translations: [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] Onset: 10-29-2022 Episodic Other [...] 11-24-2014 Episodic Residual codes; unclassified (1 source) Insomnia, unspecified; Translations: [Insomnia, unspecified type] Onset: 08-05-2024 Episodic Residual codes; unclassified (1 source) Edema, unspecified; Translations: [Edema, unspecified] Onset: 11-07-2024 Episodic Respiratory failure; insufficiency; arrest (adult) (20 sources) Acute respiratory failure; Translations: [Acute respiratory failure with hypoxia] Onset: 12-20-2024 12-04-2024 Episodic Spondylosis; intervertebral disc disorders; other back problems (20 sources) Lumbar disc prolapse with radiculopathy; Translations: [Intervertebral disc disorders with radiculopathy, lumbar region] Onset: 06-18-2012 06-18-2012 Episodic Results Test Name Value Interpretation Reference Range Facility [id number] 05-05-2025 [id number] Normal [facility] Comment on above: Performed By: #### M 7400.3302, M600.5000, L7000.0700 ####[facility] [id number] [place], [place], [id number] Ova and Parasites 8623on OP Normal [facility] Comment on above: Performed By: #### M 7400.3302, M600.5000, L7000.0700 ####[facility] [address] [place], [address] Calprotectin, Stoolon [address] 20 ug/g Normal 0-120 [facility] Comment on above: Result Comment: Conc entration Interpretation Follow-Up< 5 - 50 ug/g Normal None>50 -120 ug/g Borderline Re-evaluate in 4-6 weeks >120 ug/g Abnormal Repeat as clinically indicatedPerformed at: - [facility] [id number] Director: Marvin Quintanilla MD, Phone: [phone] Performed By: #### M 7400.3302, M600.5000, L7000.0700 ####[facility] [address] [place], [place], [id number] [id number] 05-01-2025 P ELASTASE,FECA 462 Normal >200 [facility] Comment on above: Result Comment: Resu lt Units: ug Elast./g Severe Pancreatic Insufficiency: <100 Moderate Pancreatic Insufficiency: 100 - 200 Normal: >200Performed at: [facility] [address] [id number] Director: Marvin Quintanilla MD, Phone: [phone] Performed By: #### M 100.9196, [id number], L7000.0750 ####[facility] [address] [place], [place], [id number] CDIFF (PCR)on 04-27-2025 CDIFF Pending [id number] NAP1-B1 Presumptive Negative *for epidemiolologic???use C. Diff PCR Negative- No toxigenic C. Diff Detected Normal [facility] Comment on above: Performed By: #### M [id number], [id number], L7000.0750 ####[facility] [address] [place], [address] Calprotectin stoolOrdered By : Gabby Martinez on 04-27-2025 Calprotectin stool 20 ug/g 0-120 [facility] Clostridium difficile detect ion by polymerase chain reactionOrdered By: aGbby Martinez on 04-27-2025 C. difficile DNA KANDY+probe Ql (Unsp spec) [facility] ENTERIC PATHOGEN PANEL STOOL on 04-27-2025 EP PANEL CAMPYLOBACTER Not Detected Norovirus Not Detected Rotavirus Not Detected Salmonella Not Detected Shiga Toxin Not Detected Shigella sp. Not Detected VIBRIO Not Detected Yersinia Not Detected Normal [facility] Comment on above: Performed By: #### M 100.6796, M100.637, L7000.0750 ####[facility] [address] [place], [place], [address] Stool pancreatic elastase me asurement (mass/mass)Ordered By: Gabby Martinez on 04-27-2025 Elastase.pancreatic (Stl) [Mass/Mass] 462 >200 [facility] Abdomen Single Viewon 2024 Abdomen Single View Normal [facility] Gastroenterology Visit Repor ton 04-26-2025 Gastroenterology Visit Report Normal [facility] Lipaseon 04-26-2025 Lipase [Catalytic activity/Vol] 353 U/L High 13-75 [facility] Comment on above: Result Comment: Jenny capellan note:LIPASE revised reference range effective 23.New Lipase methodology. Expected to produce lower valuesthan the previous assay method.NEW Reference Range: 13 - 75 U/L Performed By: #### L 501.2450 ####[facility] [address] [place], [address] CNOVon 04-25-2025 CNOV Office Visit (INTMWS ) GRACIE BANUELOS ([id number]) 1965 F Date Time Provider Department 04/25/25 3:40 PM MISBAH ELKINS INTMWS During your visit today, we recorded the following information about you: Pulse Respiration Blood pressure Weight 104/minute 18/minute 116/84 55.8 kg Misbah Elkins MD 04/25/2025 10:28 PM Signed Reason for Visit Follow up HPI Gracie Banuelos is a 59-year-old female with a history of chronic pancreatitis, COPD, and anxiety, presenting for follow-up after a recent hospitalization for acute pancreatitis. Gracie was admitted to the hospital on 04/16/2025 and discharged on 04/19/2025, at [facility], following an episode of acute pancreatitis. She reports that the pain began on 04/14/2025, starting in the middle of the night and gradually worsening throughout the day, prompting her to seek emergency care. The pain was exacerbated by sitting up and alleviated by lying down. She describes the pain as severe, located in the right upper quadrant, and radiating to her back. She notes that this pain was more intense than her usual chronic intermittent pain, which she has experienced since her recent pancreatic duct stent placement and removal of multiple stones at [facility] in [place] on 03/10/2025. During her recent hospitalization, a CT scan of the abdomen revealed acute and chronic pancreatitis in the pancreatic head and uncinate process, with corresponding lab evidence of elevated lipase (239 U/L) and leukocytosis (WBC count: 18,000/ microL). She was also found to have very high blood pressures of 197/[address] scan showed chronic pancreatitis changes with numerous calcifications and superimposed acute pancreatitis in the head and uncinate process, with pancreatic swelling and peripancreatic fat stranding. She was initially kept NPO and later advanced to a full liquid diet, which she tolerated well. She was discharged on clonidine 0.2 mg twice daily and labetalol. Gracie has a history of chronic pancreatitis and pancreatic stent placement at [facility] on 03/10/2025. She reports ongoing pain since the stent placement, which she describes as worse than before. She is scheduled to see Dr. Segura in gastroenterology tomorrow for further evaluation. Gracie also has a history of COPD and is on 5 liters of nasal cannula oxygen. She reports that she was intubated and placed on a ventilator during a previous in [place] hospitalization, which she attributes to fluid overload. She expresses fear of being intubated again and reports anxiety related to her health and hospitalizations. She is currently taking ziprasidone and mirtazapine for anxiety and depression but reports that these medications are not fully effective in managing her symptoms. She denies current use of clonidine. Gracie has a history of alcohol and tobacco abuse but reports that she quit smoking 19 days ago and stopped drinking alcohol in 2020. She also has a history of hypertension, for which she is taking amlodipine and lisinopril, and hyperlipidemia, for which she is taking simvastatin. She has a history of GERD and is taking pantoprazole. She also has osteoarthritis with chronic back pain and is taking meloxicam and tramadol as needed for pain. She reports that she was prescribed Toradol and morphine for pain during her recent hospitalization and is currently taking oxycodone 5 mg and tramadol for pain management. She is also taking an vilt-vkb-jhphyph medication called Ease to manage constipation associated with opioid use. Gracie expresses concern about her blood pressure readings, which she reports are high in one arm and low in the other. She was told by her doctors that she might have a blood clot and is requesting a referral to a salad counter attendant for further evaluation. She also reports dryness in her nose, which she attributes to her oxygen use, and requests a recommendation for a moisturizing agent. Social History Tobacco Use Smoking status: Every Day Current packs/day: 0.00 Average packs/day: 0.5 packs/day for 30.0 years (15.0 ttl pk-yrs) Types: Cigarettes Start date: 10/19/1992 Last attempt to quit: 10/19/2022 Years since quittin.5 Smokeless tobacco: Never Vaping Use Vaping status: Never Used Substance Use Topics Alcohol use: Not Currently Comment: Alcoholic - November 2020 - last drink Drug use: Yes Types: Marijuana Comment: rarely- last time used was Oct 2019 Past medical history, appointments, medications, allergies reviewed. Pertinent Lab/Diagnostic Studies are reviewed and discussed today Current Outpatient Medications: albuterol HFA (VENTOLIN HFA) 90 mcg/actuation inhaler hydrOXYzine pamoate (VISTARIL) 25 mg capsule lisinopril (ZESTRIL) 10 mg tablet simvastatin (ZOCOR) [address] (PROTONIX) 40 mg tablet metoprolol tartrate, short acting, (LOPRESSOR) 25 (more content not included)... Normal [facility] Matteo 04-25-2025 ALE Telephone (INTMWS) GRACIE BANUELOS ([id number]) 1965 F Date Time Provider Department 04/25/25 MISBAH ELKINS During your visit today, we recorded the following information about you: Caroline Miller, RN 04/25/2025 6:01 PM Signed Pt just in and saw Dr. Elkins and checked out at 454 pm. Pt calling in asking about her pain med refill and see if it has been sent to the pharmacy yet. She states she doesn't want to get all the way home and have to come back out in the heat. (can hear a TV in the background). It appears note is not completed so pain med has not been sent in yet. Pt states she would rather have the Tramadol instead of the Oxycodone sent in. She is asking for a call back when the med has been sent in as her daughter is out and about and could pick it up for her. Explained that it is after hours and this might not get completed until tomorrow sometime. Pt verbalizes understanding but is hoping for the med tonight as she does not want to go back to the ER. Misbah Elkins MD 04/25/2025 7:03 PM Signed I sent tramadol as requested to [facility] Misbah Cisneros MD, Barbara, RN 04/26/2025 8:24 AM Signed Called pt and she said she already picked up the Tramadol. Allergies As of Date: 04/25/2025 Noted Allergy Reaction BACTRIM (SULFAMETHOXAZOLE-TRIME TH*11/28/2022 4 - Hives HYDROCODONE 08/02/2020 9 - Itching PENICILLINS 07/07/2006 14 - Other: See Comments Comments: hives VALIUM (DIAZEPAM) 11/02/2013 14 - Other: See Comments Comments: cross reaction with alcohol addiction Date Reviewed: 04/25/2025 Reviewed by: Juan Borjas MA - Fully Assessed Reason for Visit: Pain medication [Other] Primary Visit Diagnosis:Chronic pancreatitis, unspecified pancreatitis type (HCC) [K86.1] Other Visit Diagnosis:Generalized abdominal pain [R10.84] Order(s):traMADol (ULTRAM) 50 mg tabletTake 1 tablet by mouth every 6 hours as needed for up to 7 days.Disp: 28 tabletRfl: 0 Prescriptions as of 04/26/2025 - oxyCODONE IR (ROXICODONE) 5 mg immediate release tablet Take 1 tablet by mouth every 8 hours as needed for pain for up to 7 days. - traMADol (ULTRAM) 50 mg tablet Take 1 tablet by mouth every 6 hours as needed for up to 7 days. - albuterol [...] mg once daily. - OXYGEN, HOME THERAPY, 5 L/min by Nasal Cannula route as directed. Patient is on 5 L/min continuous - COMPOUNDED PRESCRIPTION Pulse Oximetry - COMPOUNDED PRESCRIPTION nebulizer supplies (tubing) Problem List As Of Date 04/25/2025 Noted Resolved TOBACCO USE DISORDER [F17.200] 06/29/2008 Anxiety state [F41.1] 10/19/2008 Hyperlipidemia [E78.5] 01/31/2009 Essential hypertension, benign [I10] 09/04/2009 Gastroesophageal reflux disease [K21.9] 12/26/2009 01/10/2021 Acute gastritis without mention of hemorrhage [*10/03/2010 01/03/2015 Pancreatitis chronic 05/26/2011 08/27/2017 COPD without exacerbation (HCC) [J44.9] 05/25/2012 Lumbar disc disease with radiculopathy [M51.16] 06/18/2012 Postmenopausal bleeding [N95.0] 12/07/2012 Ovarian cyst, righ (more content not included)... Normal [facility] 04-20-2025 [facility] Telephone (INTMWS) GRACIE BANUELOS ([id number]) 1965 F Date Time Provider Department 04/20/25 MISBAH ELKINS INTMikeWS During your visit today, we recorded the following information about you: Kiana Christy 04/20/2025 8:59 AM Signed Patient calling in to let office know she was just discharged from [facility]. She made an appt to see on 04/25, however she states they gave her oxycodone to help with her pain, and she only has 4 left. She is wondering if she is able to get another refill. Please review and advise. Kiana Aguayo Westley April 20, 2025 8:59 AM Misbah Elkins MD 04/20/2025 4:58 PM Signed [facility] does not show that she got any oxycodoe Staff do you see anything or does [facility] Er not have connection to oarrrs? Regards, Juan Holland MD, MA 04/21/2025 8:47 AM Signed Reconcile dispense list shows a fill of Oxycodone HCL 5 MG qty: 10 tablets on 04/19/25. CHERELLE Philip Chitra, MD 04/21/2025 11:10 AM Signed I will not be able to refill except for 10 pills. Thank you Juan Borjas MA 04/21/2025 11:45 AM Signed Unable to reach patient. Left VM to return call to office. Please read below and advise. CHERELLE Philip Barbara, SARWAT 04/22/2025 9:18 AM Signed LM pt has a script at the pharmacy. Allergies As of Date: 04/20/2025 Noted Allergy Reaction BACTRIM (SULFAMETHOXAZOLE-TRIME TH*11/28/2022 4 - Hives HYDROCODONE 08/02/2020 9 - Itching PENICILLINS 07/07/2006 14 - Other: See Comments Comments: hives VALIUM (DIAZEPAM) 11/02/2013 14 - Other: See Comments Comments: cross reaction with alcohol addiction Date Reviewed: 04/10/2025 Reviewed by: Rosmery Barron LPN - Fully Assessed Reason for Visit: Patient Update [1234] Primary Visit Diagnosis:Chronic recurrent pancreatitis (HCC) [K86.1] Order(s):oxyCODONE IR (ROXICODONE) 5 mg immediate release tabletTake 1 tablet by mouth every 6 hours as needed for pain for up to 3 days.Disp: 10 tabletRfl: 0 Prescriptions as of 04/22/2025 - oxyCODONE IR (ROXICODONE) 5 mg immediate release tablet Take 1 tablet by mouth every 6 hours as needed for pain for up to 3 days. - albuterol HFA (VENTOLIN HFA) 90 [...] supplies (tubing) Problem List As Of Date 04/20/2025 Noted Resolved TOBACCO USE DISORDER [F17.200] 06/29/2008 [...] 12/27/2012 Alcoholic hepatitis without ascites [K70.10] 11/16/2013 Uri (more content not included)... Normal [facility] Absolute lymphocyte countOrd ered By: Sudhir Izuqierdo on 04-19-2025 Lymphocytes Auto (Unsp spec) [#/Vol] 2.49 10*3/uL 0.83-4.51 [facility] Automated lymphocyte count a s percentage of total leukocytesOrdered By: Sudhir Izquierdo on 04-19-2025 Lymphocytes/100 WBC Auto (Unsp spec) 24.2 % 19-41 [facility] Basophil percentageOrdered B y: Sudhir Izquierdo on 04-19-2025 Basophils/100 WBC (Bld) 0.7 % 0-1 [facility] CBC W/Diff, Automatedon 03-29 Absolute Lymph 2.49 X10 3/uL Normal 0.83-4.51 [facility] Comment on above: Performed By: #### L 100.0100 ####[facility] [address] [place], [address] Absolute Neut 5.6 X10 3/uL Normal 2.0-7.7 [facility] Comment on above: Performed By: #### L 100.0100 ####[facility] [address] [place], [address] Basophils/100 WBC (Bld) 0.7 % Normal 0-1 [facility] Comment on above: Performed By: #### L 100.0100 ####[facility] [address] [place], [address] Eosinophils/100 WBC (Bld) 12.2 % High 0-5 [facility] Comment on above: Performed By: #### L 100.0100 ####[facility] [address] [place], [address] Erythrocyte distribution width (RBC) [Ratio] 14.5 % Normal 11.6-14.6 [facility] Comment on above: Performed By: #### L 100.0100 ####[facility] [address] [place], [address] Hematocrit (Bld) [Volume fraction] 28.0 % Low 37-47 [facility] Comment on above: Performed By: #### L 100.0100 ####[facility] [address] [place], [address] Hemoglobin (Bld) [Mass/Vol] 8.8 g/dL Low 12.0-15.0 [facility] Comment on above: Performed By: #### L 100.0100 ####[facility] [address] [place], [address] IG% 1.100 High 0.0-0.9 [facility] Comment on above: Result Comment: IG% - Immature Granulocytes (promyelocytes, myelocytes andmetamyelocytes) > 1% indicates that a LEFT SHIFT is Present. Performed By: #### L 100.0100 ####[facility] [address] [place], [address] Lymphocytes/100 WBC (Bld) 24.2 % Normal 19-41 [facility] Comment on above: Performed By: #### L 100.0100 ####[facility] [address] [place], [address] MCH (RBC) [Entitic mass] 26.4 pg Low 27.0-32.0 [facility] Comment on above: Performed By: #### L 100.0100 ####[facility] [address] [place], [address] MCHC (RBC) [Mass/Vol] 31.4 g/dL Low 32-36 [facility] Comment on above: Performed By: #### L 100.0100 ####[facility] [address] [place], [address] MCV (RBC) [Entitic vol] 84.1 fL Normal 81-99 [facility] Comment on above: Performed By: #### L 100.0100 ####[facility] [address] [place], [address] Monocytes/100 WBC (Bld) 7.2 % Normal 0-10 [facility] Comment on above: Performed By: #### L 100.0100 ####[facility] [address] [place], [address] Neutrophils/100 WBC (Bld) 54.6 % Normal 47-70 [facility] Comment on above: Performed By: #### L 100.0100 ####[facility] [address] [place], [address] Nucleated RBC (Bld) [#/Vol] 0 10*3/uL Normal 0-5 [facility] Comment on above: Performed By: #### L 100.0100 ####[facility] [address] [place], [address] Platelet mean volume (Bld) [Entitic vol] 9.6 fL Normal 6.2-12.0 [facility] Comment on above: Performed By: #### L 100.0100 ####[facility] [address] [place], [address] Platelets (Bld) [#/Vol] 330 10*3/uL Normal 150-450 [facility] Comment on above: Performed By: #### L 100.0100 ####[facility] [address] [place], [address] RBC (Bld) [#/Vol] 3.33 10*6/uL Low 4.2-5.4 [facility] Comment on above: Performed By: #### L 100.0100 ####[facility] [address] [place], [address] RDW SD 44.5 fl High 35.1-43.9 [facility] Comment on above: Performed By: #### L 100.0100 ####[facility] [address] [place], [address] WBC (Bld) [#/Vol] 10.3 10*3/uL Normal 4.4-11.0 [facility] Comment on above: Performed By: #### L 100.0100 ####[facility] [address] [place], [address] Discharge Instructionon 03-29 Discharge Instruction Normal [facility] Eosinophil percentageOrdered By: Sudhir Izquierdo on 04-19-2025 Eosinophils/100 WBC (Bld) 12.2 % High 0-5 [facility] Erythrocyte distribution wid th ratioOrdered By: Sudhir Izquierdo on 04-19-2025 Erythrocyte distribution width (RBC) [Ratio] 14.5 % 11.6-14.6 [facility] Erythrocyte distribution wid th standard deviationOrdered By: Sudhir Izquierdo on 04-19-2025 Erythrocyte distribution width (RBC) [Ratio] 44.5 fl High 35.1-43.9 [facility] Hematocrit Auto (Bld) [Volum e fraction]Ordered By: Sudhir Izquierdo on 04-19-2025 Hematocrit (Bld) [Volume fraction] 28.0 % Low 37-47 [facility] Hemoglobin measurementOrdere d By: Sudhir Izquierdo on 04-19-2025 Hemoglobin (Bld) [Mass/Vol] 8.8 g/dL Low 12.0-15.0 [facility] Immature granulocytes/100 WB C Auto (Bld)Ordered By: Sudhir Izquierdo on 04-19-2025 Immature granulocytes/100 WBC (Bld) 1.100 % High 0.0-0.9 [facility] MCV (mean corpuscular volume ) determinationOrdered By: Sudhir Izquierdo on 04-19-2025 MCV (RBC) [Entitic vol] 84.1 fL 81-99 [facility] Mean corpuscular hemoglobin (MCH) determinationOrdered By: Sudhir Izquierdo on 04-19-2025 MCH (RBC) [Entitic mass] 26.4 pg Low 27.0-32.0 [facility] Monocyte percentageOrdered B y: Sudhir Izquierdo on 04-19-2025 Monocytes/100 WBC (Bld) 7.2 % 0-10 [facility] Neutrophil percentageOrdered By: Sudhir Izquierdo on 04-19-2025 Neutrophils/100 WBC (Bld) 54.6 % 47-70 [facility] Platelet countOrdered By: Rosana Izquierdo on 04-19-2025 Platelets (Bld) [#/Vol] 330 10*3/uL 150-450 [facility] RBC Auto (Bld) [#/Vol]Ordere d By: Sudhir Izquierdo on 04-19-2025 RBC (Bld) [#/Vol] 3.33 10*6/uL Low 4.2-5.4 [facility] White blood cell (WBC) count Ordered By: Sudhir Izquierdo on 04-19-2025 WBC (Bld) [#/Vol] 10.3 10*3/uL 4.4-11.0 [facility] Anion gap in Serum or Plasma Ordered By: Bert Greenwood on 04-18-2025 Anion gap [Moles/Vol] 12 mmol/L 5-15 [facility] BUN/creatinine ratioOrdered By: Bert Greenwood on 04-18-2025 Urea nitrogen/Creatinine [Mass ratio] 8.6 mg/mg Low 10-20 [facility] Basic Metabolic Profile (BMP )on 04-18-2025 BUN/CRE 8.6 RATIO Low 10-20 [facility] Comment on above: Performed By: #### L 100.0100, L500.2500 ####[facility] [address] [place], [address] Calcium [Mass/Vol] 8.8 mg/dL Normal 7.6-11.0 [facility] Comment on above: Performed By: #### L 100.0100, L500.2500 ####[facility] [address] [place], [address] Chloride [Moles/Vol] 101 mmol/L Normal 98-108 [facility] Comment on above: Performed By: #### L 100.0100, L500.2500 ####[facility] [address] [place], [address] CO2 [Moles/Vol] 27.2 mmol/L Normal 21.0-32.0 [facility] Comment on above: Performed By: #### L 100.0100, L500.2500 ####[facility] [address] [place], [address] Creatinine [Mass/Vol] 0.57 mg/dL Low 0.70-1.20 [facility] Comment on above: Performed By: #### L 100.0100, L500.2500 ####[facility] [address] [place], [address] ECRCL 85.74 ml/min Normal 50-250 [facility] Comment on above: Performed By: #### L 100.0100, L500.2500 ####[facility] [address] [place], [address] GAP 12 Normal 5-15 [facility] Comment on above: Performed By: #### L 100.0100, L500.2500 ####[facility] [address] [place], [address] GFR/1.73 sq M.predicted among non-blacks MDRD (S/P/Bld) [Vol rate/Area] 103 mL/min/{1.73_m2} Normal >60 [facility] Comment on above: Result Comment: mL/m in/1.73m2 CKD-EPI Creatinine Equation (2020) Performed By: #### L 100.0100, L500.2500 ####[facility] [address] [place], [address] Glucose [Mass/Vol] 121 mg/dL High 70-99 [facility] Comment on above: Performed By: #### L 100.0100, L500.2500 ####[facility] [address] [place], [address] Potassium [Moles/Vol] 3.7 mmol/L Normal 3.3-5.1 [facility] Comment on above: Performed By: #### L 100.0100, L500.2500 ####[facility] [address] [place], [address] Sodium [Moles/Vol] 139 mmol/L Normal 133-145 [facility] Comment on above: Performed By: #### L 100.0100, L500.2500 ####[facility] [address] [place], [address] Urea nitrogen [Mass/Vol] 5 mg/dL Normal 4-19 [facility] Comment on above: Performed By: #### L 100.0100, L500.2500 ####[facility] [address] [place], [address] CBC W/Diff, Automatedon 07-2 Absolute Lymph 2.64 X10 3/uL Normal 0.83-4.51 [facility] Comment on above: Performed By: #### L 100.0100, L500.2500 ####[facility] [address] [place], [address] Absolute Neut 6.6 X10 3/uL Normal 2.0-7.7 [facility] Comment on above: Performed By: #### L 100.0100, L500.2500 ####[facility] [address] [place], [address] Basophils/100 WBC (Bld) 0.5 % Normal 0-1 [facility] Comment on above: Performed By: #### L 100.0100, L500.2500 ####[facility] [address] [place], [address] Eosinophils/100 WBC (Bld) 8.1 % High 0-5 [facility] Comment on above: Performed By: #### L 100.0100, L500.2500 ####[facility] [address] [place], [address] Erythrocyte distribution width (RBC) [Ratio] 14.8 % High 11.6-14.6 [facility] Comment on above: Performed By: #### L 100.0100, L500.2500 ####[facility] [address] [place], [address] Hematocrit (Bld) [Volume fraction] 28.1 % Low 37-47 [facility] Comment on above: Performed By: #### L 100.0100, L500.2500 ####[facility] [address] [place], [address] Hemoglobin (Bld) [Mass/Vol] 8.8 g/dL Low 12.0-15.0 [facility] Comment on above: Performed By: #### L 100.0100, L500.2500 ####[facility] [address] [place], [address] IG% 0.500 Normal 0.0-0.9 [facility] Comment on above: Result Comment: IG% - Immature Granulocytes (promyelocytes, myelocytes andmetamyelocytes) > 1% indicates that a LEFT SHIFT is Present. Performed By: #### L 100.0100, L500.2500 ####[facility] [address] [place], [address] Lymphocytes/100 WBC (Bld) 23.8 % Normal 19-41 [facility] Comment on above: Performed By: #### L 100.0100, L500.2500 ####[facility] [address] [place], [address] MCH (RBC) [Entitic mass] 26.3 pg Low 27.0-32.0 [facility] Comment on above: Performed By: #### L 100.0100, L500.2500 ####[facility] [address] [place], [address] MCHC (RBC) [Mass/Vol] 31.3 g/dL Low 32-36 [facility] Comment on above: Performed By: #### L 100.0100, L500.2500 ####[facility] [address] [place], [address] MCV (RBC) [Entitic vol] 84.1 fL Normal 81-99 [facility] Comment on above: Performed By: #### L 100.0100, L500.2500 ####[facility] [address] [place], [address] Monocytes/100 WBC (Bld) 7.0 % Normal 0-10 [facility] Comment on above: Performed By: #### L 100.0100, L500.2500 ####[facility] [address] [place], [address] Neutrophils/100 WBC (Bld) 60.1 % Normal 47-70 [facility] Comment on above: Performed By: #### L 100.0100, L500.2500 ####[facility] [address] [place], [address] Nucleated RBC (Bld) [#/Vol] 0 10*3/uL Normal 0-5 [facility] Comment on above: Performed By: #### L 100.0100, L500.2500 ####[facility] [address] [place], [address] Platelet mean volume (Bld) [Entitic vol] 9.9 fL Normal 6.2-12.0 [facility] Comment on above: Performed By: #### L 100.0100, L500.2500 ####[facility] [address] [place], [address] Platelets (Bld) [#/Vol] 303 10*3/uL Normal 150-450 [facility] Comment on above: Performed By: #### L 100.0100, L500.2500 ####[facility] [address] [place], [address] RBC (Bld) [#/Vol] 3.34 10*6/uL Low 4.2-5.4 [facility] Comment on above: Performed By: #### L 100.0100, L500.2500 ####[facility] [address] [place], [address] RDW SD 45.5 fl High 35.1-43.9 [facility] Comment on above: Performed By: #### L 100.0100, L500.2500 ####[facility] [address] [place], [address] WBC (Bld) [#/Vol] 11.1 10*3/uL High 4.4-11.0 [facility] Comment on above: Performed By: #### L 100.0100, L500.2500 ####[facility] [address] [place], [address] Carbon dioxide, total [Moles /volume] in Central venous bloodOrdered By: Bert Greenwood on 04-18-2025 CO2 [Moles/Vol] 27.2 mmol/L 21.0-32.0 [facility] Chloride assayOrdered By: Dorian Greenwood on 04-18-2025 Chloride [Moles/Vol] 101 mmol/L 98-108 [facility] Glomerular filtration rate ( GFR) estimation/1.73 sq m using serum, plasma, or whole bOrdered By: Bert Greenwood on 04-18-2025 GFR/1.73 sq M.predicted among non-blacks MDRD (S/P/Bld) [Vol rate/Area] 103 mL/min/{1.73_m2} >60 [facility] Potassium measurement (mass/ volume)Ordered By: Bert Greenwood on 04-18-2025 Potassium (Unsp spec) [Mass/Vol] 3.7 mmol/L 3.3-5.1 [facility] Serum creatinine measurement (mass/volume)Ordered By: Bert Greenwood on 04-18-2025 Creatinine [Mass/Vol] 0.57 mg/dL Low 0.70-1.20 [facility] Serum glucose measurement (m ass/volume)Ordered By: Bert Greenwood on 04-18-2025 Glucose [Mass/Vol] 121 mg/dL High 70-99 [facility] Serum or plasma calcium esthela urement (mass/volume)Ordered By: Bert Greenwood on 04-18-2025 Calcium [Mass/Vol] 8.8 mg/dL 7.6-11.0 [facility] Serum or plasma urea nitroge n measurement (mass/volume)Ordered By: Bert Greenwood on 04-18-2025 Urea nitrogen [Mass/Vol] 5 mg/dL 4-19 [facility] Sodium levelOrdered By: Mandy Greenwood on 04-18-2025 Sodium [Moles/Vol] 139 mmol/L 133-145 [facility] Bilirubin, totalOrdered By: Bert Greenwood on 04-17-2025 Bilirubin [Mass/Vol] 0.18 mg/dL 0.00-1.30 [facility] CBC W/Diff, Automatedon 07-2 Absolute Lymph 2.11 X10 3/uL Normal 0.83-4.51 [facility] Comment on above: Performed By: #### L 500.4050, L100.0100, L501.2450 ####[facility] [address] [place], [address] Absolute Neut 8.8 X10 3/uL High 2.0-7.7 [facility] Comment on above: Performed By: #### L 500.4050, L100.0100, L501.2450 ####[facility] [address] [place], [address] Basophils/100 WBC (Bld) 0.5 % Normal 0-1 [facility] Comment on above: Performed By: #### L 500.4050, L100.0100, L501.2450 ####[facility] [address] [place], [address] Eosinophils/100 WBC (Bld) 5.0 % Normal 0-5 [facility] Comment on above: Performed By: #### L 500.4050, L100.0100, L501.2450 ####[facility] [address] [place], [address] Erythrocyte distribution width (RBC) [Ratio] 14.9 % High 11.6-14.6 [facility] Comment on above: Performed By: #### L 500.4050, L100.0100, L501.2450 ####[facility] [address] [place], [address] Hematocrit (Bld) [Volume fraction] 28.3 % Low 37-47 [facility] Comment on above: Performed By: #### L 500.4050, L100.0100, L501.2450 ####[facility] [address] [place], [address] Hemoglobin (Bld) [Mass/Vol] 8.9 g/dL Low 12.0-15.0 [facility] Comment on above: Performed By: #### L 500.4050, L100.0100, L501.2450 ####[facility] [address] [place], [address] IG% 0.600 Normal 0.0-0.9 [facility] Comment on above: Result Comment: IG% - Immature Granulocytes (promyelocytes, myelocytes andmetamyelocytes) > 1% indicates that a LEFT SHIFT is Present. Performed By: #### L 500.4050, L100.0100, L501.2450 ####[facility] [address] [place], [address] Lymphocytes/100 WBC (Bld) 16.6 % Low 19-41 [facility] Comment on above: Performed By: #### L 500.4050, L100.0100, L501.2450 ####[facility] [address] [place], [address] MCH (RBC) [Entitic mass] 26.8 pg Low 27.0-32.0 [facility] Comment on above: Performed By: #### L 500.4050, L100.0100, L501.2450 ####[facility] [address] [place], [address] MCHC (RBC) [Mass/Vol] 31.4 g/dL Low 32-36 [facility] Comment on above: Performed By: #### L 500.4050, L100.0100, L501.2450 ####[facility] [address] [place], [address] MCV (RBC) [Entitic vol] 85.2 fL Normal 81-99 [facility] Comment on above: Performed By: #### L 500.4050, L100.0100, L501.2450 ####[facility] [address] [place], [address] Monocytes/100 WBC (Bld) 8.3 % Normal 0-10 [facility] Comment on above: Performed By: #### L 500.4050, L100.0100, L501.2450 ####[facility] [address] [place], [address] Neutrophils/100 WBC (Bld) 69.0 % Normal 47-70 [facility] Comment on above: Performed By: #### L 500.4050, L100.0100, L501.2450 ####[facility] [address] [place], [address] Nucleated RBC (Bld) [#/Vol] 0 10*3/uL Normal 0-5 [facility] Comment on above: Performed By: #### L 500.4050, L100.0100, L501.2450 ####[facility] [address] [place], [address] Platelet mean volume (Bld) [Entitic vol] 10.3 fL Normal 6.2-12.0 [facility] Comment on above: Performed By: #### L 500.4050, L100.0100, L501.2450 ####[facility] [address] [place], [address] Platelets (Bld) [#/Vol] 310 10*3/uL Normal 150-450 [facility] Comment on above: Performed By: #### L 500.4050, L100.0100, L501.2450 ####[facility] [address] [place], [address] RBC (Bld) [#/Vol] 3.32 10*6/uL Low 4.2-5.4 [facility] Comment on above: Performed By: #### L 500.4050, L100.0100, L501.2450 ####[facility] [address] [place], [address] RDW SD 46.7 fl High 35.1-43.9 [facility] Comment on above: Performed By: #### L 500.4050, L100.0100, L501.2450 ####[facility] [address] [place], [address] WBC (Bld) [#/Vol] 12.7 10*3/uL High 4.4-11.0 [facility] Comment on above: Performed By: #### L 500.4050, L100.0100, L501.2450 ####[facility] [address] [place], [address] Comprehensive Metabolic Prof [facility] 04-17-2025 Albumin [Mass/Vol] 3.0 g/dL Low 3.4-4.8 [facility] Comment on above: Performed By: #### L 500.4050, L100.0100, L501.2450 ####[facility] [address] [place], [address] Albumin/Globulin [Mass ratio] 1.0 {ratio} Normal 0.9-2.4 [facility] Comment on above: Performed By: #### L 500.4050, L100.0100, L501.2450 ####[facility] [address] [place], [address] ALK PHOS 113 U/L High 35-104 [facility] Comment on above: Performed By: #### L 500.4050, L100.0100, L501.2450 ####[facility] [address] [place], [address] ALT [Catalytic activity/Vol] 9 U/L Normal <=34 [facility] Comment on above: Performed By: #### L 500.4050, L100.0100, L501.2450 ####[facility] [address] [place], [address] AST [Catalytic activity/Vol] 11 U/L Normal <=31 [facility] Comment on above: Performed By: #### L 500.4050, L100.0100, L501.2450 ####[facility] [address] [place], [address] Bilirubin [Mass/Vol] 0.18 mg/dL Normal 0.00-1.30 [facility] Comment on above: Performed By: #### L 500.4050, L100.0100, L501.2450 ####[facility] [address] [place], [address] BUN/CRE 7.7 RATIO Low 10-20 [facility] Comment on above: Performed By: #### L 500.4050, L100.0100, L501.2450 ####[facility] [address] [place], [address] Calcium [Mass/Vol] 9.1 mg/dL Normal 7.6-11.0 [facility] Comment on above: Performed By: #### L 500.4050, L100.0100, L501.2450 ####[facility] [address] [place], [address] Chloride [Moles/Vol] 101 mmol/L Normal 98-108 [facility] Comment on above: Performed By: #### L 500.4050, L100.0100, L501.2450 ####[facility] [address] [place], [address] CO2 [Moles/Vol] 26.9 mmol/L Normal 21.0-32.0 [facility] Comment on above: Performed By: #### L 500.4050, L100.0100, L501.2450 ####[facility] [address] [place], [address] Creatinine [Mass/Vol] 0.57 mg/dL Low 0.70-1.20 [facility] Comment on above: Performed By: #### L 500.4050, L100.0100, L501.2450 ####[facility] [address] [place], [address] ECRCL 85.74 ml/min Normal 50-250 [facility] Comment on above: Performed By: #### L 500.4050, L100.0100, L501.2450 ####[facility] [address] [place], [address] GAP 12 Normal 5-15 [facility] Comment on above: Performed By: #### L 500.4050, L100.0100, L501.2450 ####[facility] [address] [place], [address] GFR/1.73 sq M.predicted among non-blacks MDRD (S/P/Bld) [Vol rate/Area] 103 mL/min/{1.73_m2} Normal >60 [facility] Comment on above: Result Comment: mL/m in/1.73m2 CKD-EPI Creatinine Equation (2020) Performed By: #### L 500.4050, L100.0100, L501.2450 ####[facility] [address] [place], [address] Globulin (S) [Mass/Vol] 3.0 g/dL Normal 2.2-4.2 [facility] Comment on above: Performed By: #### L 500.4050, L100.0100, L501.2450 ####[facility] [address] [place], [address] Glucose [Mass/Vol] 107 mg/dL High 70-99 [facility] Comment on above: Performed By: #### L 500.4050, L100.0100, L501.2450 ####[facility] [address] [place], [address] Potassium [Moles/Vol] 3.8 mmol/L Normal 3.3-5.1 [facility] Comment on above: Performed By: #### L 500.4050, L100.0100, L501.2450 ####[facility] [address] [place], [address] Sodium [Moles/Vol] 139 mmol/L Normal 133-145 [facility] Comment on above: Performed By: #### L 500.4050, L100.0100, L501.2450 ####[facility] [address] [place], [address] T PROT 6.0 g/dL Normal 5.9-8.4 [facility] Comment on above: Performed By: #### L 500.4050, L100.0100, L501.2450 ####[facility] [address] [place], [address] Urea nitrogen [Mass/Vol] 4 mg/dL Normal 4-19 [facility] Comment on above: Performed By: #### L 500.4050, L100.0100, L501.2450 ####[facility] [address] [place], [address] LDHon 04-17-2025 LDH 145 U/L Normal 84-246 [facility] Comment on above: Performed By: #### L 504.2610 ####[facility] [address] [place], [address] Lipaseon 04-17-2025 Lipase [Catalytic activity/Vol] 90 U/L High 13-75 [facility] Comment on above: Result Comment: Jenny capellan note:LIPASE revised reference range effective 23.New Lipase methodology. Expected to produce lower valuesthan the previous assay method.NEW Reference Range: 13 - 75 U/L Performed By: #### L 500.4050, L100.0100, L501.2450 ####[facility] [address] [place], [place], [id number] No Panel InformationOrdered By: Bert Greenwood on 04-17-2025 11 U/L <32 [facility] Serum globulin measurementOr dered By: Bert Greenwood on 04-17-2025 Globulin (S) [Mass/Vol] 3.0 g/dL 2.2-4.2 [facility] Serum or plasma alanine pimentel otransferase (ALT) measurementOrdered By: Bert Greenwood on 04-17-2025 ALT [Catalytic activity/Vol] 9 U/L <35 [facility] Serum or plasma albumin esthela urement (mass/volume)Ordered By: Bert Greenwood on 04-17-2025 Albumin [Mass/Vol] 3.0 g/dL Low 3.4-4.8 [facility] Serum or plasma albumin/glob ulin mass ratioOrdered By: Bert Greenwood on 04-17-2025 Albumin/Globulin [Mass ratio] 1.0 {ratio} 0.9-2.4 [facility] Serum or plasma alkaline jose sphatase measurementOrdered By: Bert Greenwood on 04-17-2025 ALP [Catalytic activity/Vol] 113 U/L High 35-104 [facility] Total proteinOrdered By: Art Greenwood on 04-17-2025 Protein [Mass/Vol] 6.0 g/dL 5.9-8.4 [facility] Alcohol, Blood (Medical)-Ser umon 04-16-2025 SERUM ETOH < 10.1 Normal <=10.0 [facility] Comment on above: Result Comment: This test is for medical purposes only. The legaldefinition of intoxication varies according to local law. Performed By: #### L 501.9100, L505.5000 ####[facility] [address] [place], [place], [address] Amphetamine detection with 1 000 ng/mL as cutoffOrdered By: Jackson Chopra on 04-16-2025 Amphetamines Screen method >1000 ng/mL Ql (U) Negative < 200 ng/mL [facility] Bilirubin Test strip Ql (U)O rdered By: Erik Gomez on 04-16-2025 Bilirubin Ql (U) Negative Negative [facility] CBC W/Diff, Automatedon 03-29 Absolute Lymph 2.17 X10 3/uL Normal 0.83-4.51 [facility] Comment on above: Performed By: #### L 100.0100, L501.2300, L501.9520, L500.4050, L503.0106, L500.4100 ####[facility] [address] [place], [address] Absolute Neut 11.4 X10 3/uL High 2.0-7.7 [facility] Comment on above: Performed By: #### L 100.0100, L501.2300, L501.9520, L500.4050, L503.0106, L500.4100 ####[facility] [address] [place], [address] Basophils/100 WBC (Bld) 0.3 % Normal 0-1 [facility] Comment on above: Performed By: #### L 100.0100, L501.2300, L501.9520, L500.4050, L503.0106, L500.4100 ####[facility] [address] [place], [address] Eosinophils/100 WBC (Bld) 3.7 % Normal 0-5 [facility] Comment on above: Performed By: #### L 100.0100, L501.2300, L501.9520, L500.4050, L503.0106, L500.4100 ####[facility] [address] [place], [address] Erythrocyte distribution width (RBC) [Ratio] 14.7 % High 11.6-14.6 [facility] Comment on above: Performed By: #### L 100.0100, L501.2300, L501.9520, L500.4050, L503.0106, L500.4100 ####[facility] [address] [place], [address] Hematocrit (Bld) [Volume fraction] 30.1 % Low 37-47 [facility] Comment on above: Performed By: #### L 100.0100, L501.2300, L501.9520, L500.4050, L503.0106, L500.4100 ####[facility] [address] [place], [address] Hemoglobin (Bld) [Mass/Vol] 9.3 g/dL Low 12.0-15.0 [facility] Comment on above: Performed By: #### L 100.0100, L501.2300, L501.9520, L500.4050, L503.0106, L500.4100 ####[facility] [address] [place], [address] IG% 0.600 Normal 0.0-0.9 [facility] Comment on above: Result Comment: IG% - Immature Granulocytes (promyelocytes, myelocytes andmetamyelocytes) > 1% indicates that a LEFT SHIFT is Present. Performed By: #### L 100.0100, L501.2300, L501.9520, L500.4050, L503.0106, L500.4100 ####[facility] [address] [place], [address] Lymphocytes/100 WBC (Bld) 14.2 % Low 19-41 [facility] Comment on above: Performed By: #### L 100.0100, L501.2300, L501.9520, L500.4050, L503.0106, L500.4100 ####[facility] [address] [place], [address] MCH (RBC) [Entitic mass] 26.6 pg Low 27.0-32.0 [facility] Comment on above: Performed By: #### L 100.0100, L501.2300, L501.9520, L500.4050, L503.0106, L500.4100 ####[facility] [address] [place], [address] MCHC (RBC) [Mass/Vol] 30.9 g/dL Low 32-36 [facility] Comment on above: Performed By: #### L 100.0100, L501.2300, L501.9520, L500.4050, L503.0106, L500.4100 ####[facility] [address] [place], [address] MCV (RBC) [Entitic vol] 86.2 fL Normal 81-99 [facility] Comment on above: Performed By: #### L 100.0100, L501.2300, L501.9520, L500.4050, L503.0106, L500.4100 ####[facility] [address] [place], [address] Monocytes/100 WBC (Bld) 7.0 % Normal 0-10 [facility] Comment on above: Performed By: #### L 100.0100, L501.2300, L501.9520, L500.4050, L503.0106, L500.4100 ####[facility] [address] [place], [address] Neutrophils/100 WBC (Bld) 74.2 % High 47-70 [facility] Comment on above: Performed By: #### L 100.0100, L501.2300, L501.9520, L500.4050, L503.0106, L500.4100 ####[facility] [address] [place], [address] Nucleated RBC (Bld) [#/Vol] 0 10*3/uL Normal 0-5 [facility] Comment on above: Performed By: #### L 100.0100, L501.2300, L501.9520, L500.4050, L503.0106, L500.4100 ####[facility] [address] [place], [address] Platelet mean volume (Bld) [Entitic vol] 9.7 fL Normal 6.2-12.0 [facility] Comment on above: Performed By: #### L 100.0100, L501.2300, L501.9520, L500.4050, L503.0106, L500.4100 ####[facility] [address] [place], [address] Platelets (Bld) [#/Vol] 275 10*3/uL Normal 150-450 [facility] Comment on above: Performed By: #### L 100.0100, L501.2300, L501.9520, L500.4050, L503.0106, L500.4100 ####[facility] [address] [place], [address] RBC (Bld) [#/Vol] 3.49 10*6/uL Low 4.2-5.4 [facility] Comment on above: Performed By: #### L 100.0100, L501.2300, L501.9520, L500.4050, L503.0106, L500.4100 ####[facility] [address] [place], [address] RDW SD 46.5 fl High 35.1-43.9 [facility] Comment on above: Performed By: #### L 100.0100, L501.2300, L501.9520, L500.4050, L503.0106, L500.4100 ####[facility] [address] [place], [address] WBC (Bld) [#/Vol] 15.3 10*3/uL High 4.4-11.0 [facility] Comment on above: Performed By: #### L 100.0100, L501.2300, L501.9520, L500.4050, L503.0106, L500.4100 ####[facility] [address] [place], [place], [address] Calculated very low density lipoprotein (VLDL) cholesterol measurementOrdered By: Jackson Chopra on 04-16-2025 Calculated very low density lipoprotein (VLDL) cholesterol measurement 24 mg/dL [facility] Comprehensive Metabolic Prof ilon 04-16-2025 BUN/CRE 5.0 RATIO Low 07-17 [facility] Comment on above: Result Comment: AMENDED REPORT 04/16/25 0645 BUN/CRE previously reported as: 3.9 L RATIO Performed By: #### L 100.0100, L501.2300, L501.9520, L500.4050, L503.0106, L500.4100 ####[facility] [address] [place], [place], [address] Urea nitrogen [Mass/Vol] 3 mg/dL Low 01-14 [facility] Comment on above: Result Comment: AMENDED REPORT 04/16/25 0645 BUN previously reported as: 2 L mg/dL Performed By: #### L 100.0100, L501.2300, L501.9520, L500.4050, L503.0106, L500.4100 ####[facility] [address] [place], [place], [id number] Folate [Mass/volume] in Seru m or PlasmaOrdered By: Jackson Chopra on 04-16-2025 Folate [Mass/Vol] 10.50 ng/mL 4.60-34.80 [facility] Folates,Serum (Folic Acid)on 04-16-2025 FOLATES,SERUM 10.50 ng/mL Normal 4.60-34.80 [facility] Comment on above: Result Comment: Hemo lysis, Results will be affected, Requires Recollection. Performed By: #### L 506.0200, L501.5200 ####[facility] [address] [place], [address] H AND P Exam - Hospitaliston 04-16-2025 H&P Exam - Hospitalist Normal [facility] Ketones Test strip Ql (U)Ord ered By: Erik Gomez on 04-16-2025 Ketones Ql (U) Negative Negative [facility] LDHon 04-16-2025 LDH 160 U/L Normal 84-246 [facility] Comment on above: Performed By: #### L 504.2610 ####[facility] [address] [place], [address] LDL calc ser/plasOrdered By: Jackson Chopra on 04-16-2025 Cholesterol in LDL [Mass/Vol] 58 mg/dL [facility] Lipid Profileon 04-16-2025 CHOL:HDL 2.78 Normal [facility] Comment on above: Performed By: #### L 100.0100, L501.2300, L501.9520, L500.4050, L503.0106, L500.4100 ####[facility] [address] [place], [address] Cholesterol [Mass/Vol] 128 mg/dL Normal <=200 [facility] Comment on above: Result Comment: Chol esterol level, Desirable <200 mg/dLBorderline high cholesterol 200-239 mg/dLHigh cholesterol >=240 mg/dLRecommendations of the NCEP Adult Treatment Panel for thefollowing risk-cutoff thresholds for the [place] Americanpopulation. Performed By: #### L 100.0100, L501.2300, L501.9520, L500.4050, L503.0106, L500.4100 ####[facility] [address] [place], [address] Cholesterol in HDL [Mass/Vol] 46 mg/dL Normal [facility] Comment on above: Result Comment: Jazlyn onal Cholesterol Education Program (NCEP) guidelines:<40 mg/dL: Low HDL-cholesterol (major risk factor for CHD)>= 60 mg/dL: High HDL-cholesterol (negative risk factor forCHD)HDL-cholesterol is affected by a number of factors, e.g.smoking, exercise, hormones, sex and age. Performed By: #### L 100.0100, L501.2300, L501.9520, L500.4050, L503.0106, L500.4100 ####[facility] [address] [place], [address] Cholesterol in LDL [Mass/Vol] 58 mg/dL Normal [facility] Comment on above: Result Comment: Bord ivrbns=181-453 mg/dL Higher Pqcb=355 mg/dL or greater Performed By: #### L 100.0100, L501.2300, L501.9520, L500.4050, L503.0106, L500.4100 ####[facility] [address] [place], [address] Cholesterol in VLDL [Mass/Vol] 24 mg/dL Normal 5-40 [facility] Comment on above: Performed By: #### L 100.0100, L501.2300, L501.9520, L500.4050, L503.0106, L500.4100 ####[facility] [address] [place], [address] Triglyceride [Mass/Vol] 122 mg/dL Normal [facility] Comment on above: Result Comment: The drugs N-Acetylcysteine and Metamizole may falselydepress this assay.Normal range: <150 mg/dLBorderline High: 150-199 mg/dLHigh: 200-499 mg/dLVery High: >500 mg/dL Performed By: #### L 100.0100, L501.2300, L501.9520, L500.4050, L503.0106, L500.4100 ####[facility] [address] [place], [address] Magnesiumon 04-16-2025 Magnesium [Mass/Vol] 1.5 mg/dL Normal 1.5-2.2 [facility] Comment on above: Performed By: #### L 506.0200, L501.5200 ####[facility] [address] [place], [place], [id number] Mucus LM Ql (Urine sed)Order ed By: Erik Gomez on 04-16-2025 Mucus Ql (Urine sed) 0 SEEN /hpf [facility] Nitrite Test strip Ql (U)Ord ered By: Erik Gomez on 04-16-2025 Nitrite Ql (U) Negative Negative [facility] No Panel InformationOrdered By: Jackson Chopra on 04-16-2025 Negative < 200 ng/mL [facility] Phosphoruson 04-16-2025 Phosphate [Mass/Vol] 4.4 mg/dL Normal 2.7-4.5 [facility] Comment on above: Performed By: #### L 100.0100, L501.2300, L501.9520, L500.4050, L503.0106, L500.4100 ####[facility] [address] [place], [place], [address] Protein Test strip Ql (U)Ord ered By: Erik Gomez on 04-16-2025 Protein Ql (U) 15 mg/dl High Negative [facility] Screening urine fentanyl samir surementOrdered By: Jackson Chopra on 04-16-2025 fentaNYL Screen Ql (U) Negative [facility] Serum or plasma cholesterol in HDL measurement (mass/volume)Ordered By: Jackson Chopra on 04-16-2025 Cholesterol in HDL [Mass/Vol] 46 mg/dL >40 [facility] Serum or plasma cholesterol measurement (mass/volume)Ordered By: Jackson Chopra on 04-16-2025 Cholesterol [Mass/Vol] 128 mg/dL <201 [facility] Squamous epithelial cells de tection in urine sediment by light microscopyOrdered By: Erik Gomez on 04-16-2025 Epithelial cells.squamous LM Ql (Urine sed) 0-5 SEEN /hpf 5-10 [facility] TSH DL <= 0.005 mIU/L QnOrde red By: Jackson Chopra on 04-16-2025 TSH Qn 1.340 uIU/mL 0.300-4.200 [facility] Thyroid Stim Hormone (TSH)on 04-16-2025 TSH 1.340 uIU/mL Normal 0.300-4.200 [facility] Comment on above: Performed By: #### L 100.0100, L501.2300, L501.9520, L500.4050, L503.0106, L500.4100 ####[facility] [address] [place], [address] Urinalysis, Completeon 04-16 EPI,SQUAMOUS 0-5 SEEN Normal 5-10 [facility] Comment on above: Order Comment: CLEAN CATCH Performed By: #### L 400.0001 ####[facility] [address] [place], [address] WBC 0-5 SEEN Normal 0-5 [facility] Comment on above: Order Comment: CLEAN CATCH Performed By: #### L 400.0001 ####[facility] [address] [place], [address] BACTERIA 0 SEEN Normal None Seen [facility] Comment on above: Order Comment: CLEAN CATCH Performed By: #### L 400.0001 ####[facility] [address] [place], [address] Mucus Ql (Urine sed) 0 SEEN Normal [facility] Comment on above: Order Comment: CLEAN CATCH Performed By: #### L 400.0001 ####[facility] [address] [place], [address] RBC 0 SEEN Normal 0-5 [facility] Comment on above: Order Comment: CLEAN CATCH Performed By: #### L 400.0001 ####[facility] [address] [place], [address] Urine Drug Screen (VISTA)on 04-16-2025 AMPHETAMINES Negative Normal <1000 ng/mL [facility] Comment on above: Order Comment: U Performed By: #### L 501.9100, L505.5000 ####[facility] [address] [place], [address] BARBITIURATES Negative Normal < 200 ng/mL [facility] Comment on above: Order Comment: U Performed By: #### L 501.9100, L505.5000 ####[facility] [address] [place], [address] BENZODIAZIPINE Negative Normal < 200 ng/mL [facility] Comment on above: Order Comment: U Performed By: #### L 501.9100, L505.5000 ####[facility] [address] [place], [address] BUP Ur Drug Scr Negative Normal < 200 ng/mL [facility] Comment on above: Order Comment: U Performed By: #### L 501.9100, L505.5000 ####[facility] [address] [place], [address] COCAINE Negative Normal < 300 ng/mL [facility] Comment on above: Order Comment: U Performed By: #### L 501.9100, L505.5000 ####[facility] [address] [place], [address] Fentanyl Negative Normal [facility] Comment on above: Order Comment: U Performed By: #### L 501.9100, L505.5000 ####[facility] [address] [place], [address] METHADONE Negative Normal < 300 ng/mL [facility] Comment on above: Order Comment: U Performed By: #### L 501.9100, L505.5000 ####[facility] [address] [place], [address] OPIATES Positive Normal < 300 ng/mL [facility] Comment on above: Order Comment: U Result Comment: If c onfirmation testing is needed, a separate order will berequired to send out testing to the reference laboratory. Performed By: #### L 501.9100, L505.5000 ####[facility] [address] [place], [address] OXYCODONE Negative Normal < 100 ng/mL [facility] Comment on above: Order Comment: U Performed By: #### L 501.9100, L505.5000 ####[facility] [address] [place], [address] PCP Negative Normal < 25 ng/mL [facility] Comment on above: Order Comment: U Performed By: #### L 501.9100, L505.5000 ####[facility] [address] [place], [address] THC Negative Normal < 50 ng/mL [facility] Comment on above: Order Comment: U Performed By: #### L 501.9100, L505.5000 ####[facility] [address] [place], [address] Urine clarityOrdered By: Di Gomez on 04-16-2025 Clarity (U) Clear Clear [facility] Urine color determinationOrd ered By: Erik Gomez on 04-16-2025 Color (U) Yellow Yellow [facility] Urine glucose detectionOrder ed By: Erik Gomez on 04-16-2025 Glucose Ql (U) Normal mg/dl Normal [facility] Urine leukocyte esterase det ection by dipstickOrdered By: Erik Gomez on 04-16-2025 Leukocyte esterase Test strip Ql (U) 25 /ul High Negative [facility] Urine pHOrdered By: Erik Gomez on 04-16-2025 pH (U) 7.0 [pH] 5.0 - 8.0 [facility] Urine phencyclidine (PCP) de tectionOrdered By: Jackson Chopra on 04-16-2025 Phencyclidine Ql (U) Negative < 25 ng/mL [facility] Urine sediment bacteria coun t by microscopy (number/high power field)Ordered By: Erik Gomez on 04-16-2025 Bacteria LM.HPF (Urine sed) [#/Area] 0 /[HPF] None Seen [facility] Urine specific gravity measu rementOrdered By: Erik Gomez on 04-16-2025 Specific gravity (U) [Rel density] 1.005 1.002-1.030 [facility] Urine urobilinogen measureme ntOrdered By: Eirk Gomez on 04-16-2025 Urobilinogen Ql (U) Normal mg/dl Normal [facility] Vitamin B12on 04-16-2025 Cobalamin (Vitamin B12) [Mass/Vol] 415 pg/mL Normal 180-914 [facility] Comment on above: Performed By: #### L 100.0100, L501.2300, L501.9520, L500.4050, L503.0106, L500.4100 ####[facility] [address] [place], [place], [id number] Vitamin B12 ser/plasOrdered By: Jackson Chopra on 04-16-2025 Cobalamin (Vitamin B12) [Mass/Vol] 415 pg/mL 180-914 [facility] White blood cell countOrdere d By: Erik Gomez on 04-16-2025 White blood cell count 0-5 SEEN /hpf 0-5 [facility] Abdomen/Pelvis W IV Cont ONL Yon 04-15-2025 Abdomen/Pelvis W IV Cont ONLY Normal [facility] Absolute lymphocyte countOrd ered By: Erik Gomez on 04-15-2025 Lymphocytes Auto (Unsp spec) [#/Vol] 2.76 10*3/uL 0.83-4.51 [facility] Anion gap in Serum or Plasma Ordered By: Erik Gomez on 04-15-2025 Anion gap [Moles/Vol] 11 mmol/L 5-15 [facility] Automated lymphocyte count a s percentage of total leukocytesOrdered By: Erik Gomez on 04-15-2025 Lymphocytes/100 WBC Auto (Unsp spec) 14.6 % Low 19-41 [facility] BUN/creatinine ratioOrdered By: Erik Gomez on 04-15-2025 Urea nitrogen/Creatinine [Mass ratio] 5.3 mg/mg Low 10-20 [facility] Basophil percentageOrdered B y: Erik Gomez on 04-15-2025 Basophils/100 WBC (Bld) 0.4 % 0-1 [facility] Bilirubin, totalOrdered By: Erik Gomez on 04-15-2025 Bilirubin [Mass/Vol] mg/dL 0.00-1.30 [facility] CBC W/Diff, Automatedon 03-28 Absolute Lymph 2.76 X10 3/uL Normal 0.83-4.51 [facility] Comment on above: Performed By: #### L 501.2450, L500.4050, L100.0100 ####[facility] [address] [place], [address] Absolute Neut 13.6 X10 3/uL High 2.0-7.7 [facility] Comment on above: Performed By: #### L 501.2450, L500.4050, L100.0100 ####[facility] [address] [place], [address] Basophils/100 WBC (Bld) 0.4 % Normal 0-1 [facility] Comment on above: Performed By: #### L 501.2450, L500.4050, L100.0100 ####[facility] [address] [place], [address] Eosinophils/100 WBC (Bld) 4.9 % Normal 0-5 [facility] Comment on above: Performed By: #### L 501.2450, L500.4050, L100.0100 ####[facility] [address] [place], [address] Erythrocyte distribution width (RBC) [Ratio] 14.6 % Normal 11.6-14.6 [facility] Comment on above: Performed By: #### L 501.2450, L500.4050, L100.0100 ####[facility] [address] [place], [address] Hematocrit (Bld) [Volume fraction] 33.6 % Low 37-47 [facility] Comment on above: Performed By: #### L 501.2450, L500.4050, L100.0100 ####[facility] [address] [place], [address] Hemoglobin (Bld) [Mass/Vol] 10.7 g/dL Low 12.0-15.0 [facility] Comment on above: Performed By: #### L 501.2450, L500.4050, L100.0100 ####[facility] [address] [place], [address] IG% 0.700 Normal 0.0-0.9 [facility] Comment on above: Result Comment: IG% - Immature Granulocytes (promyelocytes, myelocytes andmetamyelocytes) > 1% indicates that a LEFT SHIFT is Present. Performed By: #### L 501.2450, L500.4050, L100.0100 ####[facility] [address] [place], [address] Lymphocytes/100 WBC (Bld) 14.6 % Low 19-41 [facility] Comment on above: Performed By: #### L 501.2450, L500.4050, L100.0100 ####[facility] [address] [place], [address] MCH (RBC) [Entitic mass] 26.6 pg Low 27.0-32.0 [facility] Comment on above: Performed By: #### L 501.2450, L500.4050, L100.0100 ####[facility] [address] [place], [address] MCHC (RBC) [Mass/Vol] 31.8 g/dL Low 32-36 [facility] Comment on above: Performed By: #### L 501.2450, L500.4050, L100.0100 ####[facility] [address] [place], [address] MCV (RBC) [Entitic vol] 83.6 fL Normal 81-99 [facility] Comment on above: Performed By: #### L 501.2450, L500.4050, L100.0100 ####[facility] [address] [place], [address] Monocytes/100 WBC (Bld) 7.0 % Normal 0-10 [facility] Comment on above: Performed By: #### L 501.2450, L500.4050, L100.0100 ####[facility] [address] [place], [address] Neutrophils/100 WBC (Bld) 72.4 % High 47-70 [facility] Comment on above: Performed By: #### L 501.2450, L500.4050, L100.0100 ####[facility] [address] [place], [address] Nucleated RBC (Bld) [#/Vol] 0 10*3/uL Normal 0-5 [facility] Comment on above: Performed By: #### L 501.2450, L500.4050, L100.0100 ####[facility] [address] [place], [address] Platelet mean volume (Bld) [Entitic vol] 9.5 fL Normal 6.2-12.0 [facility] Comment on above: Performed By: #### L 501.2450, L500.4050, L100.0100 ####[facility] [address] [place], [address] Platelets (Bld) [#/Vol] 291 10*3/uL Normal 150-450 [facility] Comment on above: Performed By: #### L 501.2450, L500.4050, L100.0100 ####[facility] [address] [place], [address] RBC (Bld) [#/Vol] 4.02 10*6/uL Low 4.2-5.4 [facility] Comment on above: Performed By: #### L 501.2450, L500.4050, L100.0100 ####[facility] [address] [place], [address] RDW SD 45.1 fl High 35.1-43.9 [facility] Comment on above: Performed By: #### L 501.2450, L500.4050, L100.0100 ####[facility] [address] [place], [address] WBC (Bld) [#/Vol] 18.9 10*3/uL High 4.4-11.0 [facility] Comment on above: Performed By: #### L 501.2450, L500.4050, L100.0100 ####[facility] [address] [place], [address] Carbon dioxide, total [Moles /volume] in Central venous bloodOrdered By: Erik Gomez on 04-15-2025 CO2 [Moles/Vol] 27.4 mmol/L 21.0-32.0 [facility] Chloride assayOrdered By: John Gomez on 04-15-2025 Chloride [Moles/Vol] 99 mmol/L 98-108 [facility] Comprehensive Metabolic Prof ilon 04-15-2025 Albumin [Mass/Vol] 3.4 g/dL Normal 3.4-4.8 [facility] Comment on above: Performed By: #### L 501.2450, L500.4050, L100.0100 ####[facility] [address] [place], [address] Albumin/Globulin [Mass ratio] 1.0 {ratio} Normal 0.9-2.4 [facility] Comment on above: Performed By: #### L 501.2450, L500.4050, L100.0100 ####[facility] [address] [place], [address] ALK PHOS 127 U/L High 35-104 [facility] Comment on above: Performed By: #### L 501.2450, L500.4050, L100.0100 ####[facility] [address] [place], [address] ALT [Catalytic activity/Vol] 13 U/L Normal <=34 [facility] Comment on above: Performed By: #### L 501.2450, L500.4050, L100.0100 ####[facility] [address] [place], [address] AST [Catalytic activity/Vol] 16 U/L Normal <=31 [facility] Comment on above: Performed By: #### L 501.2450, L500.4050, L100.0100 ####[facility] [address] [place], [address] BUN/CRE 5.3 RATIO Low 10-20 [facility] Comment on above: Performed By: #### L 501.2450, L500.4050, L100.0100 ####[facility] [address] [place], [address] Calcium [Mass/Vol] 9.2 mg/dL Normal 7.6-11.0 [facility] Comment on above: Performed By: #### L 501.2450, L500.4050, L100.0100 ####[facility] [address] [place], [address] Chloride [Moles/Vol] 99 mmol/L Normal 98-108 [facility] Comment on above: Performed By: #### L 501.2450, L500.4050, L100.0100 ####[facility] [address] [place], [address] CO2 [Moles/Vol] 27.4 mmol/L Normal 21.0-32.0 [facility] Comment on above: Performed By: #### L 501.2450, L500.4050, L100.0100 ####[facility] [address] [place], [address] Creatinine [Mass/Vol] 0.69 mg/dL Low 0.70-1.20 [facility] Comment on above: Performed By: #### L 501.2450, L500.4050, L100.0100 ####[facility] [address] [place], [address] ECRCL 70.83 ml/min Normal 50-250 [facility] Comment on above: Performed By: #### L 501.2450, L500.4050, L100.0100 ####[facility] [address] [place], [address] GAP 11 Normal 5-15 [facility] Comment on above: Performed By: #### L 501.2450, L500.4050, L100.0100 ####[facility] [address] [place], [address] GFR/1.73 sq M.predicted among non-blacks MDRD (S/P/Bld) [Vol rate/Area] 99 mL/min/{1.73_m2} Normal >60 [facility] Comment on above: Result Comment: mL/m in/1.73m2 CKD-EPI Creatinine Equation (2020) Performed By: #### L 501.2450, L500.4050, L100.0100 ####[facility] [address] [place], [address] Globulin (S) [Mass/Vol] 3.5 g/dL Normal 2.2-4.2 [facility] Comment on above: Performed By: #### L 501.2450, L500.4050, L100.0100 ####[facility] [address] [place], [address] Glucose [Mass/Vol] 111 mg/dL High 70-99 [facility] Comment on above: Performed By: #### L 501.2450, L500.4050, L100.0100 ####[facility] [address] [place], [address] Potassium [Moles/Vol] 3.6 mmol/L Normal 3.3-5.1 [facility] Comment on above: Result Comment: Hemo lysis present, Results??could be affected.?? Performed By: #### L 501.2450, L500.4050, L100.0100 ####[facility] [address] [place], [address] Sodium [Moles/Vol] 138 mmol/L Normal 133-145 [facility] Comment on above: Performed By: #### L 501.2450, L500.4050, L100.0100 ####[facility] [address] [place], [address] T BILI < 0.15 Normal 0.00-1.30 [facility] Comment on above: Performed By: #### L 501.2450, L500.4050, L100.0100 ####[facility] [address] [place], [address] T PROT 6.9 g/dL Normal 5.9-8.4 [facility] Comment on above: Performed By: #### L 501.2450, L500.4050, L100.0100 ####[facility] [address] [place], [address] Urea nitrogen [Mass/Vol] 4 mg/dL Normal 01-14 [facility] Comment on above: Performed By: #### L 501.2450, L500.4050, L100.0100 ####[facility] [address] [place], [address] Emergency Department Summary on 04-15-2025 Emergency Department Summary Normal [facility] Eosinophil percentageOrdered By: Frannie Patricia on 04-15-2025 Eosinophils/100 WBC (Bld) 4.9 % 0-5 [facility] Erythrocyte distribution wid th ratioOrdered By: Erik Patricia on 04-15-2025 Erythrocyte distribution width (RBC) [Ratio] 14.6 % 11.6-14.6 [facility] Erythrocyte distribution wid th standard deviationOrdered By: [facility] on 04-15-2025 Erythrocyte distribution width (RBC) [Ratio] 45.1 fl High 35.1-43.9 [facility] Glomerular filtration rate ( GFR) estimation/1.73 sq m using serum, plasma, or whole bOrdered By: Frannie Patricia on 04-15-2025 GFR/1.73 sq M.predicted among non-blacks MDRD (S/P/Bld) [Vol rate/Area] 99 mL/min/{1.73_m2} >60 [facility] Hematocrit Auto (Bld) [Volum e fraction]Ordered By: Erik Gomez on 04-15-2025 Hematocrit (Bld) [Volume fraction] 33.6 % Low 37-47 [facility] Hemoglobin measurementOrdere d By: Erik Gomez on 04-15-2025 Hemoglobin (Bld) [Mass/Vol] 10.7 g/dL Low 12.0-15.0 [facility] Immature granulocytes/100 WB C Auto (Bld)Ordered By: Erik Gomez on 04-15-2025 Immature granulocytes/100 WBC (Bld) 0.700 % 0.0-0.9 [facility] Lipaseon 04-15-2025 Lipase [Catalytic activity/Vol] 239 U/L High 13-75 [facility] Comment on above: Result Comment: Jenny capellan note:LIPASE revised reference range effective 23.New Lipase methodology. Expected to produce lower valuesthan the previous assay method.NEW Reference Range: 13 - 75 U/L Performed By: #### L 501.2450, L500.4050, L100.0100 ####[facility] [address] [place], [address] MCV (mean corpuscular volume ) determinationOrdered By: Erik Gomez on 04-15-2025 MCV (RBC) [Entitic vol] 83.6 fL 81-99 [facility] Magnesium measurement (mass/ volume)Ordered By: Jackson Chopra on 04-15-2025 Magnesium (Unsp spec) [Mass/Vol] 1.5 mg/dL 1.5-2.2 [facility] Mean corpuscular hemoglobin (MCH) determinationOrdered By: Erik Gomez on 04-15-2025 MCH (RBC) [Entitic mass] 26.6 pg Low 27.0-32.0 [facility] Monocyte percentageOrdered B y: Erik Gomez on 04-15-2025 Monocytes/100 WBC (Bld) 7.0 % 0-10 [facility] Neutrophil percentageOrdered By: Erik Gomez on 04-15-2025 Neutrophils/100 WBC (Bld) 72.4 % High 47-70 [facility] No Panel InformationOrdered By: Erik Gomez on 04-15-2025 16 U/L <32 [facility] Platelet countOrdered By: John Gomez on 04-15-2025 Platelets (Bld) [#/Vol] 291 10*3/uL 150-450 [facility] Potassium measurement (mass/ volume)Ordered By: Erik Gomez on 04-15-2025 Potassium (Unsp spec) [Mass/Vol] 3.6 mmol/L 3.3-5.1 [facility] RBC Auto (Bld) [#/Vol]Ordere d By: Erik Gomez on 04-15-2025 RBC (Bld) [#/Vol] 4.02 10*6/uL Low 4.2-5.4 [facility] Serum creatinine measurement (mass/volume)Ordered By: Erik Gomez on 04-15-2025 Creatinine [Mass/Vol] 0.69 mg/dL Low 0.70-1.20 [facility] Serum globulin measurementOr dered By: Erik Gomez on 04-15-2025 Globulin (S) [Mass/Vol] 3.5 g/dL 2.2-4.2 [facility] Serum glucose measurement (m ass/volume)Ordered By: Erik Gomez on 04-15-2025 Glucose [Mass/Vol] 111 mg/dL High 70-99 [facility] Serum or plasma alanine pimentel otransferase (ALT) measurementOrdered By: Erik Gmoez on 04-15-2025 ALT [Catalytic activity/Vol] 13 U/L <35 [facility] Serum or plasma albumin esthela urement (mass/volume)Ordered By: Erik Gomez on 04-15-2025 Albumin [Mass/Vol] 3.4 g/dL 3.4-4.8 [facility] Serum or plasma albumin/glob ulin mass ratioOrdered By: Erik Gomez on 04-15-2025 Albumin/Globulin [Mass ratio] 1.0 {ratio} 0.9-2.4 [facility] Serum or plasma alkaline jose sphatase measurementOrdered By: Erik Gomez on 04-15-2025 ALP [Catalytic activity/Vol] 127 U/L High 35-104 [facility] Serum or plasma calcium esthela urement (mass/volume)Ordered By: Erik Gomez on 04-15-2025 Calcium [Mass/Vol] 9.2 mg/dL 7.6-11.0 [facility] Serum or plasma ethanol esthela urement (mass/volume)Ordered By: Jackson Chopra on 04-15-2025 Ethanol [Mass/Vol] mg/dL <10.1 [facility] Serum or plasma urea nitroge n measurement (mass/volume)Ordered By: Erik Gomez on 04-15-2025 Urea nitrogen [Mass/Vol] 4 mg/dL 4-19 [facility] Sodium levelOrdered By: Meet Gomez on 04-15-2025 Sodium [Moles/Vol] 138 mmol/L 133-145 [facility] Total proteinOrdered By: Di Gomez on 04-15-2025 Protein [Mass/Vol] 6.9 g/dL 5.9-8.4 [facility] White blood cell (WBC) count Ordered By: Erik Mgone on 04-15-2025 WBC (Bld) [#/Vol] 18.9 10*3/uL High 4.4-11.0 [facility] CNPNon 04-11-2025 CNPN Telephone (PODCCP) GRACIE BANUELOS ([id number]) 1965 F Date Time Provider Department 04/11/25 MISBAH ELKINS PODCCP During your visit today, we recorded the following information about you: Yuly France 04/11/2025 9:34 AM Signed Transitional Care Management (TCM) [facility] Provider Action / FYI: na SUMMARY: Outreach type: INITIAL OUTREACH Discharge Network Status: In-Network Discharge Source of Patient: [facility] TCM Discharge Report Patient discharged from [facility] on 03.23.25. Admitted for acute on chronic [...] stress female [N39.3] 11/24/2014 HPV test positive [[id number]] 11/24/2014 Alcohol dependence in remission (HCC) [F10.21] [...] with hypox*03/15 (more content not included)... Normal [facility] CNOVon 04-10-2025 CNOV Office Visit (INTMWS ) GRACIE BANUELOS ([id number]) 1965 F Date Time Provider Department 04/10/25 1:40 PM NICOLAS GREER INTMWS During your visit today, we recorded the following information about you: Pulse Respiration Blood pressure Weight 100/minute 16/minute 102/82 56 kg Nicolas Greer, LEI MAKER.[facility] 04/10/2025 2:31 PM Signed Subjective Patient ID: [...] stent placement 03/10. Patient was transferred from [facility]. There she was found to have acute pancreatitis. She had a stent placed in the body of the pancreas however on CT scan at the other hospital she had new peripancreatic inflammation. She was also experiencing acute hypoxic respiratory failure and was emergently intubated and transferred to [facility] ICU. 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 Pancreatic Stent Placement: - Stent placed by Dr. Garrido at [facility]. - Persistent abdominal pain radiating to the [...] following stent placement led to hospitalization at [facility], then transferred to [facility] due to fluid overload and septic shock. [...] - 6.0 (more content not included)... Normal [facility] CNPNon 04-10-2025 CNPN Telephone (PODCCP) GRACIE BANUELOS ([id number]) 1965 F Date Time Provider Department 04/10/25 MISBAH ELKINS PODCCP During your visit today, we recorded the following information about you: Yuly France 04/10/2025 9:37 AM Signed Transitional Care Management (TCM) [facility] Monitoring [facility] Provider Action / FYI: na SUMMARY: Outreach type: INITIAL OUTREACH Discharge Network Status: In-Network Discharge Source of Patient: [facility] TCM Discharge Report Patient discharged from [facility] on 03.23.25. Admitted for acute on chronic [...] Transition Of Care [4074] Prescriptions as of 04/10/2025 - albuterol HFA [...] stress female [N39.3] 11/24/2014 HPV test positive [[id number]] 11/24/2014 Alcohol dependence in remission (HCC) [F10.21] [...] [K85.90, K8*0 (more content not included)... Normal [facility] Pulmonary Visit Reporton Pulmonary Visit Report Normal [facility] CNPNon 04-04-2025 CNPN Telephone (INTMWS) GRACIE BANUELOS ([id number]) 1965 F Date Time Provider Department 04/04/25 [...] stress female [N39.3] 11/24/2014 HPV test positive [[id number]] 11/24/2014 Alcohol dependence in remission (HCC) [F10.21] [...] Pneumonia [ (more content not included)... Normal [facility] CNPN Telephone (PODCCP) GRACIE BANUELOS ([id number]) 1965 F Date Time Provider Department 04/04/25 MISBAH ELKINS PODCCP During your visit today, we recorded the following information about you: Yuly France 04/04/2025 9:47 AM Signed [facility] Provider Action / FYI: na SUMMARY: Outreach type: INITIAL OUTREACH Discharge Network Status: In-Network Discharge Source of Patient: [facility] TCM Discharge Report Patient discharged from [facility] on 03.23.25. Admitted for acute on chronic [...] Assessed Reason for Visit: Transition Of Care [1634] Prescriptions as of 04/04/2025 - albuterol HFA [...] stress female [N39.3] 11/24/2014 HPV test positive [[id number]] 11/24/2014 Alcohol dependence in remission (HCC) [F10.21] [...] [K85.90, K8 (more content not included)... Normal [facility] Telephone (4CQ) GRACIE BANUELOS ([id number]) 1965 F Date Time Provider Department 04/04/25 MISBAH ELKINS 4CQ During your visit today, we recorded the following information about you: Yonny, Rosy 04/04/2025 3:15 PM Signed Transitional Care Management (TCM) [facility] Provider Action / FYI: NA SUMMARY: Outreach type: INITIAL OUTREACH Discharge Network Status: In-Network Discharge Source of Patient: [facility] TCM Discharge Report Patient discharged from [facility] on 03.23.25. Admitted for acute on chronic [...] Assessed Reason for Visit: Transition Of Care [6744] Cmt: Left V/m Prescriptions as of 04/04/2025 [...] stress female [N39.3] 11/24/2014 HPV test positive [[id number]] 11/24/2014 Alcohol dependence in remission (HCC) [F10.21] [...] [K85.90, K8 (more content not included)... Normal [facility] CNPN Telephone (NEPREM) GRACIE BANUELOS ([id number]) 1965 F Date Time Provider Department 04/04/25 MILLY SALEH During your visit today, we recorded the following information about you: Nellie Duke 04/04/2025 2:30 PM Signed Patient unaware that [...] stress female [N39.3] 11/24/2014 HPV test positive [[id number]] 11/24/2014 Alcohol dependence in remission (HCC) [F10.21] [...] Number: 9 (more content not included)... Normal [facility] Matteo 03-29-2025 ALE Telephone (DDQ) GRACEI BANUELOS ([id number]) 1965 F Date Time Provider Department 03/29/25 JUAN SENIOR DDQ During your visit today, we recorded the following information about you: Jasbir JensenDayana 03/29/2025 3:25 PM Addendum Patient called the office with concerns about cafe server diarrhea. Patient is not sure if [...] voiced it this could be done at [facility]- I explained that if there was an advanced endoscopist available - yes. She could also have this performed at [facility] for stent management- if this was closer for her- She will notify us. MCKENNA Le Ida 04/07/2025 11:23 AM Signed This patient is on our call list / scheduling pool to schedule at [facility]. We do not have [facility] available in [place]. we only do procedural sedation and will not do ERCP in our out patient surgery center. Please have someone from your office explain this to patient and schedule appropriately. When I spoke with patient she was very confused about the procedure she thought she was getting an EGD under procedural sedation. Call patient @ [phone] Allergies As of Date: 03/29/2025 Noted Allergy Reaction BACTRIM (SULFAMETHOXAZOLE-TRIME TH*11/28/2022 4 - Hives HYDROCODONE 08/02/2020 9 - Itching PENICILLINS 07/07/2006 14 - Other: See Comments Comments: hives VALIUM (DIAZEPAM) 11/02/2013 14 - Other: See Comments Comments: cross reaction with alcohol addiction Date Reviewed: 03/23/2025 Reviewed by: Kerri Aaron RN - Fully Assessed Reason for Visit: Patient Question [1477] Prescriptions as of 04/07/2025 - albuterol HFA [...] [K70.10] 11/16/2013 (more content not included)... Normal [facility] CNPNon 03-28-2025 CNPN Telephone (PODCCP) GRACIE BANUELOS ([id number]) 1965 F Date Time Provider Department 03/28/25 HERMAN NEVAREZ PODCCP During your visit today, we recorded the following information about you: Herman Nevarez RN 03/28/2025 1:05 PM Signed Transitional Care Management (TCM) [facility] Monitoring [facility] Provider Action / FYI: N/A SUMMARY: Outreach type: INITIAL OUTREACH Discharge Network Status: In-Network Discharge Source of Patient: [facility] TCM Discharge Report Patient discharged from [facility] on 03/23/25. Admitted for acute on chronic [...] for Visit: Transition Of Care [4074] Cmt: RC f/u discharge LVM Prescriptions as [...] stress female [N39.3] 11/24/2014 HPV test positive [[id number]] 11/24/2014 Alcohol dependence in remission (HCC) [F10.21] [...] chronic pancre (more content not included)... Normal [facility] Basic metabolic 2000 panelon 03-23-2025 Anion gap [Moles/Vol] 7 mmol/L Normal 5-16 [facility] Comment on above: Order Comment: Speci men Type: BLOOD SPECIMEN Ordering Facility: [facility] Address: [address] [place], [place] [address] Performed By: #### 2 4323-8, 3040-3, 86891-6, 2777-1, 257-8 #### [facility] CLIA [id number] [address] [place] [address] [place] Calcium [Mass/Vol] 9.2 mg/dL Normal 8.5-10.5 [facility] Comment on above: Order Comment: Kettyi tana Type: BLOOD SPECIMEN Ordering Facility: [facility] Address: [address] [place] [address] Performed By: #### 2 4323-8, 3040-3, 01156-2, 2777-1, 257-8 #### [facility] CLIA [id number] [address] [place], [place] [address] [place] Chloride [Moles/Vol] 101 mmol/L Normal 98-107 [facility] Comment on above: Order Comment: Kettyi men Type: BLOOD SPECIMEN Ordering Facility: [facility] Address: [address] [place] [address] Performed By: #### 2 4323-8, 3040-3, 29612-6, 2776-1, 8 #### [facility] CLIA [id number] [address] [place], [place] [address] [place] CO2 [Moles/Vol] 29 mmol/L Normal 21-32 [facility] Comment on above: Order Comment: Specmiya fajardo Type: BLOOD SPECIMEN Ordering Facility: [facility] Address: [address] [place] [address] Performed By: #### 2 4323-8, 3040-3, 96662-2, 2776-1, 8 #### [facility] CLIA [id number] [address] [place] [address] [place] Creatinine [Mass/Vol] 0.89 mg/dL Normal 0.51-0.95 [facility] Comment on above: Order Comment: Reggie fajardo Type: BLOOD SPECIMEN Ordering Facility: [facility] Address: [address] [place] [address] Result Comment: Gretta ents receiving either N-Acetylcysteine (NAC) or Metamizole prior to venipuncture, may have falsely depressed results. Performed By: #### 2 4323-8, 3040-3, 87969-7, 2776-09, 2571-04 #### [facility] CLIA [id number] [address] [place] [address] [place] Creatinine and Glomerular filtration rate.predicted panel (S/P/Bld) 74 mL/min/1.73m??? Normal >=60 [facility] Comment on above: Order Comment: Speci tana Type: BLOOD SPECIMEN Ordering Facility: [facility] Address: [address] [place] [address] Result Comment: Pavan mated Glomerular Filtration Rate [...] GFR. Performed By: #### 2 4323-8, 3040-3, 04199-3, 2776-1, 2571-04 #### [facility] CLIA [id number] [address] [place], [place] [address] [place] Glucose [Mass/Vol] 109 mg/dL High 70-100 [facility] Comment on above: Order Comment: Speci men Type: BLOOD SPECIMEN Ordering Facility: [facility] Address: [address] [place] [address] Result Comment: The [place] Diabetes Association (ADA) provides guidance for cutoff [...] Standards of Medical Care in Diabetes 2016, [place] [employer]. Diabetes Care. 2016.39(Suppl 1). Results may be falsely elevated after the administration of Sulfapyridine. Results may be falsely depressed after the administration of Sulfasalazine. Performed By: #### 2 4323-8, 0-3, 95881-6, 2776-09, 2571-04 #### [facility] CLIA [id number] [address] [place], [place] [address] [place] Potassium [Moles/Vol] 4.9 mmol/L Normal 3.5-5.1 [facility] Comment on above: Order Comment: Speci men Type: BLOOD SPECIMEN Ordering Facility: [facility] Address: [address] [place] [address] Performed By: #### 2 4323-8, 3040-3, 80444-8, 2776-09, 2571-04 #### [facility] CLIA [id number] [address] [place], [place] [address] [place] Sodium [Moles/Vol] 137 mmol/L Normal 136-145 [facility] Comment on above: Order Comment: Speci men Type: BLOOD SPECIMEN Ordering Facility: [facility] Address: [facility] [place] [address] Performed By: #### 2 4323-8, 3040-3, 28537-7, 2776-1, 257-8 #### [facility] CLIA [id number] [address] [place], [place] [address] [place] Urea nitrogen [Mass/Vol] 15 mg/dL Normal 04-22 [facility] Comment on above: Order Comment: Speci men Type: BLOOD SPECIMEN Ordering Facility: [facility] Address: [address] [place] [address] [place] [address] Performed By: #### 2 4323-8, 3040-3, 68501-2, 2776-1, 257-8 #### [facility] CLIA [id number] [address] [place], [place] [address] [place] CBC panel Auto (Bld)on 03-23 Erythrocyte distribution width (RBC) [Ratio] 15.8 % High 11.5-15.0 [facility] Comment on above: Order Comment: Speci men Type: BLOOD SPECIMEN Ordering Facility: [facility] Address: [facility] [address] Performed By: #### 2 4323-8, 3040-3, 75476-4, 2776-1, 257-8 #### [facility] CLIA [id number] [address] [place], [place] [address] [place] Hematocrit (Bld) [Volume fraction] 30.7 % Low 36.0-46.0 [facility] Comment on above: Order Comment: Speci men Type: BLOOD SPECIMEN Ordering Facility: [facility] Address: [facility] [place] [address] Performed By: #### 2 4323-8, 3040-3, 30288-1, 2776-1, 257-8 #### [facility] CLIA [id number] [address] [place], [place] [address] [place] Hemoglobin (Bld) [Mass/Vol] 9.3 g/dL Low 11.5-15.5 [facility] Comment on above: Order Comment: Speci men Type: BLOOD SPECIMEN Ordering Facility: [facility] Address: [address] [place] [address] Performed By: #### 2 4323-8, 3040-3, 85095-6, 2777-1, 257-8 #### [facility] CLIA [id number] [address] [place] [address] MCH (RBC) [Entitic mass] 26.7 pg Normal 26.0-34.0 [facility] Comment on above: Order Comment: Speci men Type: BLOOD SPECIMEN Ordering Facility: [facility] Address: [address] [place] [address] Performed By: #### 2 4323-8, 3040-3, 76018-3, 7-1, 257-8 #### [facility] CLIA [id number] [address] [place] [address] MCHC (RBC) [Mass/Vol] 30.3 g/dL Low 30.5-36.0 [facility] Comment on above: Order Comment: Speci men Type: BLOOD SPECIMEN Ordering Facility: [facility] Address: [address] [place] [address] Performed By: #### 2 4323-8, 3040-3, 84996-6, 2777-1, 2571-8 #### [facility] CLIA [id number] [address] [place] [address] MCV (RBC) [Entitic vol] 88.2 fL Normal 80.0-100.0 [facility] Comment on above: Order Comment: Speci men Type: BLOOD SPECIMEN Ordering Facility: [facility] Address: [address] [place] [address] Performed By: #### 2 4323-8, 3040-3, 43950-0, 2777-1, 2571-8 #### [facility] CLIA [id number] [address] [place], [place] [address] [place] Nucleated RBC (Bld) [#/Vol] 10*3/uL Normal <0.01 [facility] Comment on above: Order Comment: Speci men Type: BLOOD SPECIMEN Ordering Facility: [facility] Address: [address] [place] [address] Performed By: #### 2 4323-8, 3040-3, 63421-2, 2777-1, 257-8 #### [facility] CLIA [id number] [address] [place] [address] [place] Platelet mean volume (Bld) [Entitic vol] 10.4 fL Normal 9.0-12.7 [facility] Comment on above: Order Comment: Speci men Type: BLOOD SPECIMEN Ordering Facility: [facility] Address: [address] [place] [address] Performed By: #### 2 4323-8, 3040-3, 25441-0, 277-1, 257-8 #### [facility] CLIA [id number] [address] [place] [address] [place] Platelets (Bld) [#/Vol] 373 10*3/uL Normal 150-400 [facility] Comment on above: Order Comment: Speci men Type: BLOOD SPECIMEN Ordering Facility: [facility] Address: [address] [place] [address] Performed By: #### 2 4323-8, 3040-3, 78330-5, 277-1, 257-8 #### [facility] CLIA [id number] [address] [place], [place] [address] [place] RBC (Bld) [#/Vol] 3.48 10*6/uL Low 3.90-5.20 [facility] Comment on above: Order Comment: Speci men Type: BLOOD SPECIMEN Ordering Facility: [facility] Address: [address] [place] [address] Performed By: #### 2 4323-8, 3040-3, 20602-5, 2777-1, 257-8 #### [facility] CLIA [id number] [address] [place] [address] [place] WBC (Bld) [#/Vol] 16.85 10*3/uL High 3.70-11.00 [facility] Comment on above: Order Comment: Speci men Type: BLOOD SPECIMEN Ordering Facility: [facility] Address: [facility] [place] [address] Performed By: #### 2 4323-8, 3040-3, 55073-3, 2777-1, 2571-8 #### [facility] CLIA [id number] [address] [place], [place] [address] [facility] CNDSon 03-23-2025 CNDS HNO ID: [id number] Author: GURJIT RAYO MD Service: Hospital Medicine [...] Rayo MD Consulting: Gerson Mccall MD Attending: MR CHAYITO CASAS REASON FOR HOSPITALIZATION: Acute on chronic hypoxic [...] stent placement 03/10. Patient was transferred from [facility]. There she was found to have acute pancreatitis. She had a stent placed in the body of the pancreas however on CT scan at the other hospital she had new peripancreatic inflammation. She was alsoexperiencing acute hypoxic respiratory failure and was emergently intubated and transferred to [facility] ICU. 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 Transitions of Care Critical Issues: N/a LABS [...] TO PATIENT: Please (more content not included)... [facility] CONSULT PROGon 03-23-2025 CONSULT PROG HNO ID: [id number] Author: ESME HA APRN.BOX TOE MAKER Service: Pulmonary Disease Author Type: Nurse Practitioner [...] Stage 3 severe COPD by GOLD classification ([facility]) 2018 Tobacco use greater than 30 years [...] tab(s) (ZOF (more content not included)... Normal [facility] Magnesium SerPl-ncon 03-23 Magnesium [Mass/Vol] 1.8 mg/dL Normal 1.6-2.6 [facility] Comment on above: Order Comment: Speci men Type: BLOOD SPECIMEN Ordering Facility: [facility] Address: [address] [place] [address] Performed By: #### 2 4323-8, 3040-3, 74781-8, 2777-1, 2571-8 #### [facility] CLIA [id number] [address] [place], [place] [address] [facility] NT-proBNP [facility] 03-23 Natriuretic peptide.B prohormone N-Terminal [Mass/Vol] 1171 pg/mL High <125 [facility] Comment on above: Order Comment: Speci men Type: BLOOD SPECIMEN Ordering Facility: [facility] Address: [address] [place] [address] [place] [address] Result Comment: NT-p roBNP results of less than 300 pg/mL likely rules out acute congestive heart failure with 99% predictive value. NOTE: These cutoff points are suggested for ACUTE CHF DIAGNOSIS only Less than 50 years\X09\ Greater than 450 pg/mL 50 - 75 years\X09\\X09\ Greater than 900 pg/mL Greater than 75 years\X09\ Greater than 1800 pg/mL Performed By: #### 2 4323-8, 3040-3, 57506-0, 2777-1, 2571-8 #### [facility] CLIA [id number] [address] [place], [place] [address] [facility] NUTRITIONon 03-23-2025 NUTRITION HNO ID: [id number] Author: KIRSTEN GARCIA RD Service: ? Author Type: Registered Dietitian Type: Nutrition Filed: 03/23/2025 09:41 Note Text: NUTRITION THERAPY REASSESSMENT NOTE SERVICE DATE: 03/23/2025 SERVICE TIME: Start Time: 837 Nutrition Assessment: Recommended Malnutrition Diagnosis: Mild Protein-Calorie Malnutrition (03/23/25 0922 : Kirsten Garcia RD) In the context [...] to receive treatment for acute resp failure 2/ bilat pna, on 6L [place]. Pulmonology following. [...] Weight Type: Current weight Estimated kilocalorie needs: 0394-3456 Calorie Calculation Method: [place]-St. Jeor (with activity factor) Estimated protein needs (grams): [...] March 23, 2025 TIME: 9:31 AM Normal [facility] Basic metabolic 2000 panelon 03-22-2025 Anion gap [Moles/Vol] 9 mmol/L Normal 5-16 [facility] Comment on above: Order Comment: Reggie fajardo Type: BLOOD SPECIMEN Ordering Facility: [facility] Address: [address] [place] [address] Performed By: #### 2 4323-8, 3040-3, 67960-2, 2777-1, 2570-8 #### [facility] CLIA [id number] [address] [place] [address] [place] Calcium [Mass/Vol] 9.6 mg/dL Normal 8.5-10.5 [facility] Comment on above: Order Comment: Reggie fajardo Type: BLOOD SPECIMEN Ordering Facility: [facility] Address: [address] [place] [address] Performed By: #### 2 4323-8, 3040-3, 84394-3, 2777-1, 2570-8 #### [facility] CLIA [id number] [address] [place] [address] [place] Chloride [Moles/Vol] 99 mmol/L Normal 98-107 [facility] Comment on above: Order Comment: Speci men Type: BLOOD SPECIMEN Ordering Facility: [facility] Address: [address] [place] [address] Performed By: #### 2 4323-8, 3040-3, 23416-9, 7-1, 257-8 #### [facility] CLIA [id number] [address] [place] [address] [place] CO2 [Moles/Vol] 29 mmol/L Normal 21-32 [facility] Comment on above: Order Comment: Speci men Type: BLOOD SPECIMEN Ordering Facility: [facility] Address: [address] [place] [address] Performed By: #### 2 4323-8, 3040-3, 70877-4, 2776-1, 257-8 #### [facility] CLIA [id number] [address] [place], [place] [address] [place] Creatinine [Mass/Vol] 0.77 mg/dL Normal 0.51-0.95 [facility] Comment on above: Order Comment: Speci men Type: BLOOD SPECIMEN Ordering Facility: [facility] Address: [address] [place] [address] Result Comment: Gretta ents receiving either N-Acetylcysteine (NAC) or Metamizole prior to venipuncture, may have falsely depressed results. Performed By: #### 2 4323-8, 3040-3, 99979-1, 2777-1, 257-8 #### [facility] CLIA [id number] [address] [place], [place] [address] [place] Creatinine and Glomerular filtration rate.predicted panel (S/P/Bld) 88 mL/min/1.73m??? Normal >=60 [facility] Comment on above: Order Comment: Speci men Type: BLOOD SPECIMEN Ordering Facility: [facility] Address: [address] [place] [address] Result Comment: Pavan mated Glomerular Filtration Rate [...] GFR. Performed By: #### 2 4323-8, 3040-3, 36785-5, 2776-1, 8 #### [facility] CLIA [id number] [address] [place] [address] [place] Glucose [Mass/Vol] 102 mg/dL High 70-100 [facility] Comment on above: Order Comment: Reggie fajardo Type: BLOOD SPECIMEN Ordering Facility: [facility] Address: [address] [place] [address] Result Comment: The [place] Diabetes Association (ADA) provides guidance for cutoff [...] Standards of Medical Care in Diabetes 2016, [place] [employer]. Diabetes Care. 2016.39(Suppl 1). Results may be falsely elevated after the administration of Sulfapyridine. Results may be falsely depressed after the administration of Sulfasalazine. Performed By: #### 2 4323-8, 3040-3, 80147-2, 2776-1, 8 #### [facility] CLIA [id number] [address] [place], [place] [address] [place] Potassium [Moles/Vol] 4.9 mmol/L Normal 3.5-5.1 [facility] Comment on above: Order Comment: Reggie fajardo Type: BLOOD SPECIMEN Ordering Facility: [facility] Address: [address] [place] [address] Performed By: #### 2 4323-8, 3040-3, 33320-0, 2776-1, 8 #### [facility] CLIA [id number] [address] [place] [address] [place] Sodium [Moles/Vol] 137 mmol/L Normal 136-145 [facility] Comment on above: Order Comment: Speci men Type: BLOOD SPECIMEN Ordering Facility: [facility] Address: [address] [place] [address] Performed By: #### 2 4323-8, 3040-3, 65370-3, 2776-1, 8 #### [facility] CLIA [id number] [address] [place] [address] [place] Urea nitrogen [Mass/Vol] 12 mg/dL Normal 7-26 [facility] Comment on above: Order Comment: Speci men Type: BLOOD SPECIMEN Ordering Facility: [facility] Address: [address] [place] [address] 09447 Performed By: #### 2 4323-8, 3040-3, 02169-5, 2776-1, 2571-04 #### [facility] CLIA [id number] [address] [place] [address] [place] CBC panel Auto (Bld)on 03-22 Erythrocyte distribution width (RBC) [Ratio] 15.4 % High 11.5-15.0 [facility] Comment on above: Order Comment: Speci men Type: BLOOD SPECIMEN Ordering Facility: [facility] Address: [address] [place] [address] Performed By: #### 2 4323-8, 3040-3, 31461-2, 277-1, 8 #### [facility] CLIA [id number] [address] [place] [address] [place] Hematocrit (Bld) [Volume fraction] 33.7 % Low 36.0-46.0 [facility] Comment on above: Order Comment: Speci men Type: BLOOD SPECIMEN Ordering Facility: [facility] Address: [address] [place] [address] Performed By: #### 2 4323-8, 3040-3, 73781-6, 2776-09, 8 #### [facility] CLIA [id number] [address] [place], [place] [address] [place] Hemoglobin (Bld) [Mass/Vol] 10.2 g/dL Low 11.5-15.5 [facility] Comment on above: Order Comment: Speci men Type: BLOOD SPECIMEN Ordering Facility: [facility] Address: [address] [place], [place] [address] Performed By: #### 2 4323-8, 304-3, , 2776-09, 2571-04 #### [facility] CLIA [id number] [address] [place], [place] [address] [place] MCH (RBC) [Entitic mass] 26.4 pg Normal 26.0-34.0 [facility] Comment on above: Order Comment: Speci men Type: BLOOD SPECIMEN Ordering Facility: [facility] Address: [address] [place] [address] Performed By: #### 2 4323-8, 3040-3, 63984-2, 2776-09, 8 #### [facility] CLIA [id number] [address] [place], [place] [address] [place] MCHC (RBC) [Mass/Vol] 30.3 g/dL Low 30.5-36.0 [facility] Comment on above: Order Comment: Speci men Type: BLOOD SPECIMEN Ordering Facility: [facility] Address: [address] [place], [place] [address] Performed By: #### 2 4323-8, 304-3, 19761-0, 2776-09, 2571-04 #### [facility] CLIA [id number] [address] [place], [place] [address] [place] MCV (RBC) [Entitic vol] 87.3 fL Normal 80.0-100.0 [facility] Comment on above: Order Comment: Speci men Type: BLOOD SPECIMEN Ordering Facility: [facility] Address: [facility] [place] [id number] Performed By: #### 2 4323-8, 3040-3, 41612-3, 7-1, 257-8 #### [facility] CLIA [id number] [address] [place] [address] [place] Nucleated RBC (Bld) [#/Vol] 10*3/uL Normal <0.01 [facility] Comment on above: Order Comment: Speci men Type: BLOOD SPECIMEN Ordering Facility: [facility] Address: [address] [place], [place] [address] Performed By: #### 2 4323-8, 3040-3, 24953-7, 2776-1, 257-8 #### [facility] CLIA [id number] [address] [place], [place] [address] [place] Platelet mean volume (Bld) [Entitic vol] 10.2 fL Normal 9.0-12.7 [facility] Comment on above: Order Comment: Speci men Type: BLOOD SPECIMEN Ordering Facility: [facility] Address: [address] [place] [address] Performed By: #### 2 4323-8, 0-3, 84588-1, 2776-1, 257-8 #### [facility] CLIA [id number] [address] [place], [place] [address] [place] Platelets (Bld) [#/Vol] 411 10*3/uL High 150-400 [facility] Comment on above: Order Comment: Speci men Type: BLOOD SPECIMEN Ordering Facility: [facility] Address: [address] [place], [place] [address] Performed By: #### 2 4323-8, 3040-3, 18833-2, 7-1, 2571-8 #### [facility] CLIA [id number] [address] [place] [address] 9[address]75 [place] RBC (Bld) [#/Vol] 3.86 10*6/uL Low 3.90-5.20 [facility] Comment on above: Order Comment: Speci tana Type: BLOOD SPECIMEN Ordering Facility: [facility] Address: [address] [place] [address] Performed By: #### 2 4323-8, 3040-3, 66222-0, 2777-1, 2571-8 #### [facility] CLIA [id number] [address] [place] [address] [facility] WBC (Bld) [#/Vol] 17.90 10*3/uL High 3.70-11.00 [facility] Comment on above: Order Comment: Reggie fajardo Type: BLOOD SPECIMEN Ordering Facility: [facility] Address: [address] [place] [address] Performed By: #### 2 4323-8, 3040-3, 47509-5, 2777-1, 2571-8 #### [facility] CLIA [id number] [address] [place], [place] [address] [facility] CONSULT PROGon 03-22-2025 CONSULT PROG HNO ID: [id number] Author: ESME HA APRN.BOX TOE MAKER Service: Pulmonary Disease Author Type: Nurse Practitioner [...] Stage 3 severe COPD by GOLD classification ([facility]) 2018 Tobacco use greater than 30 years [...] 4 mg (more content not included)... Normal [facility] Magnesium SerPl-mCncon 03-22 Magnesium [Mass/Vol] 1.9 mg/dL Normal 1.6-2.6 [facility] Comment on above: Order Comment: Speci men Type: BLOOD SPECIMEN Ordering Facility: [facility] Address: [address] [place], [place] [address] [address] Performed By: #### 2 4323-8, 3040-3, 05702-4, 2777-1, 2571-8 #### [facility] CLIA [id number] [address] [place] [address] THERAPY NTon 03-22-2025 THERAPY NT HNO ID: [id number] Author: KERMIT MAGALLON PT Service: Physical Therapy Author Type: Physical Therapist Type: Therapy (PT/OT/Speech/Resp) Filed: 03/22/2025 10:55 Note Text: Physical Therapy Evaluation Summary SERVICE DATE: 03/22/2025 SERVICE TIME: 948 to 1016 ROOM: [place] [address] PT 6 Clicks Score: 22 DISCHARGE RECOMMENDATIONS [...] pancreatitis. (+) Norovirus. Extubated 03/17. Txfer to [facility] 03/18. Relevant Past Medical History: chronic pancreatitis, alcoholic hepatitis, chronic hypoxic respiratory failure (5L baseline) HOME LIVING Patient Lives With: Family, Other: See Comment Comments: Will be discharging to sister's home. Home environment provide is sister's home. Assistance Available: 24-Hour, Other: See Comment Comments: sister, [id number]-[id number] and cousin Entry To Home: Stairs, With [...] Weakness (generalized) TREATMENT INTERVENTIONS Evaluation, Therapeutic Activity (28025) Timed Code Treatment (minutes): 10 Skilled Treatment [...] March 22, 2025 TIME: 10:55 AM Normal [facility] XR CHEST 1V FRONTALon 2024 XR [...] left pleural effusion and left lobar atelectasis. Weathercaster: BABATUNDE Transcribe Date/Time: Mar 23 2025 6:52A Dictated by : OZZY LATHAM MD This examination was interpreted and the report reviewed and electronically signed by: OZZY LATHAM MD on Mar 23 2025 6:55AM EST [id number] Normal [facility] Basic metabolic 2000 panelon 03-21-2025 Anion gap [Moles/Vol] 8 mmol/L Normal 5-16 [facility] Comment on above: Order Comment: Reggie fajardo Type: BLOOD SPECIMEN Ordering Facility: [facility] Address: [address] [place] [address] Performed By: #### 2 4323-8, 3040-3, 27417-7, 2777-1, 2570-8 #### [facility] CLIA [id number] [address] [place] [address] [place] Calcium [Mass/Vol] 9.5 mg/dL Normal 8.5-10.5 [facility] Comment on above: Order Comment: Reggie fajardo Type: BLOOD SPECIMEN Ordering Facility: [facility] Address: [address] [place] [address] Performed By: #### 2 4323-8, 3040-3, 69004-5, 2777-1, 257-8 #### [facility] CLIA [id number] [address] [place] [address] [place] Chloride [Moles/Vol] 98 mmol/L Normal 98-107 [facility] Comment on above: Order Comment: Speci men Type: BLOOD SPECIMEN Ordering Facility: [facility] Address: [address] [place] [address] Performed By: #### 2 4323-8, 3040-3, 61079-7, 7-1, 257-8 #### [facility] CLIA [id number] [address] [place], [place] [address] [place] CO2 [Moles/Vol] 31 mmol/L Normal 21-32 [facility] Comment on above: Order Comment: Speci men Type: BLOOD SPECIMEN Ordering Facility: [facility] Address: [address] [place] [address] Performed By: #### 2 4323-8, 3040-3, 90326-3, 2776-1, 257-8 #### [facility] CLIA [id number] [address] [place], [place] [address] [place] Creatinine [Mass/Vol] 1.03 mg/dL High 0.51-0.95 [facility] Comment on above: Order Comment: Speci men Type: BLOOD SPECIMEN Ordering Facility: [facility] Address: [address] [place] [address] Result Comment: Gretta ents receiving either N-Acetylcysteine (NAC) or Metamizole prior to venipuncture, may have falsely depressed results. Performed By: #### 2 4323-8, 3040-3, 39985-7, 277-1, 257-8 #### [facility] CLIA [id number] [address] [place], [place] [address] [place] Creatinine and Glomerular filtration rate.predicted panel (S/P/Bld) 62 mL/min/1.73m??? Normal >=60 [facility] Comment on above: Order Comment: Speci men Type: BLOOD SPECIMEN Ordering Facility: [facility] Address: [address] [place] [address] Result Comment: Pavan mated Glomerular Filtration Rate [...] GFR. Performed By: #### 2 4323-8, 3040-3, 50073-7, 2776-1, 8 #### [facility] CLIA [id number] [address] [place] [address] [place] Glucose [Mass/Vol] 105 mg/dL High 70-100 [facility] Comment on above: Order Comment: Reggie fajardo Type: BLOOD SPECIMEN Ordering Facility: [facility] Address: [address] [place] [address] Result Comment: The [place] Diabetes [employer] (ADA) provides guidance for cutoff [...] Standards of Medical Care in Diabetes 2016, [place] [employer]. Diabetes Care. 2016.39(Suppl 1). Results may be falsely elevated after the administration of Sulfapyridine. Results may be falsely depressed after the administration of Sulfasalazine. Performed By: #### 2 4323-8, 3040-3, 62832-5, 2776-1, 8 #### [facility] CLIA [id number] [address] [place], [place] [address] [place] Potassium [Moles/Vol] 4.4 mmol/L Normal 3.5-5.1 [facility] Comment on above: Order Comment: Reggie fajardo Type: BLOOD SPECIMEN Ordering Facility: [facility] Address: [address] [place] [address]66 Performed By: #### 2 4323-8, 3040-3, 47003-9, 2776-1, 8 #### [facility] CLIA [id number] [address] [place] [address] [place] Sodium [Moles/Vol] 137 mmol/L Normal 136-145 [facility] Comment on above: Order Comment: Speci men Type: BLOOD SPECIMEN Ordering Facility: [facility] Address: [address] [place], [place] [address] Performed By: #### 2 4323-8, 3040-3, 82588-0, 2776-1, 8 #### [facility] CLIA [id number] [address] [place] [address] [place] Urea nitrogen [Mass/Vol] 17 mg/dL Normal 7-26 [facility] Comment on above: Order Comment: Speci men Type: BLOOD SPECIMEN Ordering Facility: [facility] Address: [address] [place], [place] [address] Performed By: #### 2 4323-8, 3040-3, 85493-9, 2776-1, 8 #### [facility] CLIA [id number] [address] [place] [address] [place] CBC panel Auto (Bld)on 03-21 Erythrocyte distribution width (RBC) [Ratio] 15.3 % High 11.5-15.0 [facility] Comment on above: Order Comment: Speci men Type: BLOOD SPECIMEN Ordering Facility: [facility] Address: [address] [place] [address]83 Performed By: #### 2 4323-8, 3040-3, 72483-7, 27703-28, 8 #### [facility] CLIA [id number] [address] [place] [address] [place] Hematocrit (Bld) [Volume fraction] 33.7 % Low 36.0-46.0 [facility] Comment on above: Order Comment: Speci men Type: BLOOD SPECIMEN Ordering Facility: [facility] Address: [address] [place] [address] Performed By: #### 2 4323-8, 3040-3, 79351-2, 2776-09, 8 #### [facility] CLIA [id number] [address] [place] [address] [place] Hemoglobin (Bld) [Mass/Vol] 10.0 g/dL Low 11.5-15.5 [facility] Comment on above: Order Comment: Speci men Type: BLOOD SPECIMEN Ordering Facility: [facility] Address: [address] [place] [address] Performed By: #### 2 4323-8, 304-3, 13483-4, 2776-09, 2571-04 #### [facility] CLIA [id number] [address] [place], [place] [address] [place] MCH (RBC) [Entitic mass] 26.0 pg Normal 26.0-34.0 [facility] Comment on above: Order Comment: Speci men Type: BLOOD SPECIMEN Ordering Facility: [facility] Address: [address] [place] [address] Performed By: #### 2 4323-8, 3040-3, 98733-1, 2776-09, 2571-04 #### [facility] CLIA [id number] [address] [place], [place] [address] [place] MCHC (RBC) [Mass/Vol] 29.7 g/dL Low 30.5-36.0 [facility] Comment on above: Order Comment: Speci men Type: BLOOD SPECIMEN Ordering Facility: [facility] Address: [address] [place] [address] Performed By: #### 2 4323-8, 304-3, 44434-9, 2776-09, 2571-04 #### [facility] CLIA [id number] [address] [place], [place] [address] [place] MCV (RBC) [Entitic vol] 87.8 fL Normal 80.0-100.0 [facility] Comment on above: Order Comment: Speci men Type: BLOOD SPECIMEN Ordering Facility: [facility] Address: [facility] [place] [address] Performed By: #### 2 4323-8, 3040-3, 56849-1, 7-1, 257-8 #### [facility] CLIA [id number] [address] [place] [address] [place] Nucleated RBC (Bld) [#/Vol] 10*3/uL Normal <0.01 [facility] Comment on above: Order Comment: Speci men Type: BLOOD SPECIMEN Ordering Facility: [facility] Address: [facility] [place] [address] Performed By: #### 2 4323-8, 3040-3, 95921-0, 2776-1, 257-8 #### [facility] CLIA [id number] [address] [place], [place] [address] [place] Platelet mean volume (Bld) [Entitic vol] 9.7 fL Normal 9.0-12.7 [facility] Comment on above: Order Comment: Speci men Type: BLOOD SPECIMEN Ordering Facility: [facility] Address: [facility] [place] [address] Performed By: #### 2 4323-8, 0-3, 59398-5, 2776-1, 257-8 #### [facility] CLIA [id number] [address] [place], [place] [address] [place] Platelets (Bld) [#/Vol] 380 10*3/uL Normal 150-400 [facility] Comment on above: Order Comment: Speci men Type: BLOOD SPECIMEN Ordering Facility: [facility] Address: [facility] [place] [address] Performed By: #### 2 4323-8, 3040-3, 00624-5, 2776-1, 257-8 #### [facility] CLIA [id number] [address] [place] [address] [place] RBC (Bld) [#/Vol] 3.84 10*6/uL Low 3.90-5.20 [facility] Comment on above: Order Comment: Speci men Type: BLOOD SPECIMEN Ordering Facility: [facility] Address: [address] [place] [address] Performed By: #### 2 4323-8, 3040-3, 91036-0, 2777-1, 2571-8 #### [facility] CLIA [id number] [address] [place] [address] [facility] WBC (Bld) [#/Vol] 16.40 10*3/uL High 3.70-11.00 [facility] Comment on above: Order Comment: Speci tana Type: BLOOD SPECIMEN Ordering Facility: [facility] Address: [address] [place] [address] Performed By: #### 2 4323-8, 3040-3, 66484-6, 2777-1, 2571-8 #### [facility] CLIA [id number] [address] [place], [place] [address] [facility] CONSULT PROGon 03-21-2025 CONSULT PROG HNO ID: [id number] Author: EUGENE VIRAMONTES APRN.BOX TOE MAKER Service: Pulmonary Disease Author Type: Nurse Practitioner Type: Consult Progress Note Filed: 03/21/2025 14:20 Note Text: [facility] PULMONARY PROGRESS NOTE SERVICE DATE: 03/21/2025 [...] Stage 3 severe COPD by GOLD classification ([facility]) 2018 Tobacco use greater than 30 years [...] injection 5,0 (more content not included)... Normal [facility] Magnesium [facility] 03-21 Magnesium [Mass/Vol] 2.3 mg/dL Normal 1.6-2.6 [facility] Comment on above: Order Comment: Reggie fajardo Type: BLOOD SPECIMEN Ordering Facility: [facility] Address: [address] [place] [address] Performed By: #### 2 4323-8, 3040-3, 40291-2, 2777-1, 2571-8 #### [facility] CLIA [id number] [address] [place] [address] NT-proBNP [facility] 03-21 Natriuretic peptide.B prohormone N-Terminal [Mass/Vol] 1416 pg/mL High <125 [facility] Comment on above: Order Comment: Reggie fajardo Type: BLOOD SPECIMEN Ordering Facility: [facility] Address: [address] [place] [address] Result Comment: NT-p roBNP results of less than 300 pg/mL likely rules out acute congestive heart failure with 99% predictive value. NOTE: These cutoff points are suggested for ACUTE CHF DIAGNOSIS only Less than 50 years\X09\ Greater than 450 pg/mL 50 - 75 years\X09\\X09\ Greater than 900 pg/mL Greater than 75 years\X09\ Greater than 1800 pg/mL Performed By: #### 2 4323-8, 3040-3, 99385-6, 2777-1, 2571-8 #### [facility] CLIA [id number] [address] [place], [place] [address] [facility] ALLIED HEALTHon 03-20-2025 ALLIED HEALTH HNO ID: [id number] Author: ?, ?, ? Service: Infection Prevention [...] 20, 2025 TIME: 2:06 PM PAGER/CONTACT #: [phone] Infection Prevention after hours/weekend pager: [phone] Normal [facility] Basic metabolic 2000 panelon 03-20-2025 Anion gap [Moles/Vol] 11 mmol/L Normal 5-16 [facility] Comment on above: Order Comment: Reggie fajardo Type: BLOOD SPECIMEN Ordering Facility: [facility] Address: [address] [place] [address] Performed By: #### S LACTR #### [facility] CLIA [id number] [address] [place] [address] [place] Calcium [Mass/Vol] 9.9 mg/dL Normal 8.5-10.5 [facility] Comment on above: Order Comment: Reggie fajardo Type: BLOOD SPECIMEN Ordering Facility: [facility] Address: [address] [place] [address] Performed By: #### S LACTR #### [facility] CLIA [id number] [address] [place] [address] [place] Chloride [Moles/Vol] 95 mmol/L Low 98-107 [facility] Comment on above: Order Comment: Reggie fajardo Type: BLOOD SPECIMEN Ordering Facility: [facility] Address: [address] [place] [address] Performed By: #### S LACTR #### [facility] CLIA [id number] [address] [place] [address] [place] CO2 [Moles/Vol] 29 mmol/L Normal 21-32 [facility] Comment on above: Order Comment: Speci men Type: BLOOD SPECIMEN Ordering Facility: [facility] Address: [address] [place] [address] Performed By: #### S LACTR #### [facility] CLIA [id number] [address] [place] [address] [place] Creatinine [Mass/Vol] 0.83 mg/dL Normal 0.51-0.95 [facility] Comment on above: Order Comment: Speci men Type: BLOOD SPECIMEN Ordering Facility: [facility] Address: [address] [place] [address] Result Comment: Gretta ents receiving either N-Acetylcysteine (NAC) or Metamizole prior to venipuncture, may have falsely depressed results. Performed By: #### S LACTR #### [facility] CLIA [id number] [address] [place] [address] [facility] [place] Creatinine and Glomerular filtration rate.predicted panel (S/P/Bld) 80 mL/min/1.73m??? Normal >=60 [facility] Comment on above: Order Comment: Speci men Type: BLOOD SPECIMEN Ordering Facility: [facility] Address: [address] [place] [address] Result Comment: Pavan mated Glomerular Filtration Rate [...] GFR. Performed By: #### S LACTR #### [facility] CLIA [id number] [address] [place] [address] [place] Glucose [Mass/Vol] 135 mg/dL High 70-100 [facility] Comment on above: Order Comment: Reggie fajardo Type: BLOOD SPECIMEN Ordering Facility: [facility] Address: [address] [place] [address] Result Comment: The [place] Diabetes [employer] (ADA) provides guidance for cutoff [...] Standards of Medical Care in Diabetes 2016, [place] [employer]. Diabetes Care. 2016.39(Suppl 1). Results may be falsely elevated after the administration of Sulfapyridine. Results may be falsely depressed after the administration of Sulfasalazine. Performed By: #### S LACTR #### [facility] CLIA [id number] [address] [place] [address] [place] Potassium [Moles/Vol] 4.2 mmol/L Normal 3.5-5.1 [facility] Comment on above: Order Comment: Reggie fajardo Type: BLOOD SPECIMEN Ordering Facility: [facility] Address: [address] [place] [address] Performed By: #### S LACTR #### [facility] CLIA [id number] [address] [place] [address] [place] Sodium [Moles/Vol] 135 mmol/L Low 136-145 [facility] Comment on above: Order Comment: Reggie fajardo Type: BLOOD SPECIMEN Ordering Facility: [facility] Address: [address] [place], [place] [id number] Performed By: #### S LACTR #### [facility] CLIA [id number] [address] [place] [address] [place] Urea nitrogen [Mass/Vol] 15 mg/dL Normal 7-26 New [facility] Comment on above: Order Comment: Speci men Type: BLOOD SPECIMEN Ordering Facility: [facility] Address: [address] [place] [address] Performed By: #### S LACTR #### [facility] CLIA [id number] [address] [place] [address] [place] CBC panel Auto (Bld)on 03-20 Erythrocyte distribution width (RBC) [Ratio] 15.4 % High 11.5-15.0 [facility] Comment on above: Order Comment: Speci men Type: BLOOD SPECIMEN Ordering Facility: [facility] Address: [address] [place] [address] Performed By: #### S LACTR #### [facility] CLIA [id number] [address] [place] [address] [place] Hematocrit (Bld) [Volume fraction] 37.7 % Normal 36.0-46.0 [facility] Comment on above: Order Comment: Speci men Type: BLOOD SPECIMEN Ordering Facility: [facility] Address: [address] [place] [address] Performed By: #### S LACTR #### [facility] CLIA [id number] [address] [place] [address] [place] Hemoglobin (Bld) [Mass/Vol] 11.7 g/dL Normal 11.5-15.5 [facility] Comment on above: Order Comment: Speci men Type: BLOOD SPECIMEN Ordering Facility: [facility] Address: [address] [place] [address] Performed By: #### S LACTR #### [facility] CLIA [id number] [address] [place] [address] [place] MCH (RBC) [Entitic mass] 26.7 pg Normal 26.0-34.0 [facility] Comment on above: Order Comment: Speci men Type: BLOOD SPECIMEN Ordering Facility: [facility] Address: [address] [place] [address] Performed By: #### S LACTR #### [facility] CLIA [id number] [address] [place] [address] [place] MCHC (RBC) [Mass/Vol] 31.0 g/dL Normal 30.5-36.0 [facility] Comment on above: Order Comment: Speci men Type: BLOOD SPECIMEN Ordering Facility: [facility] Address: [address] [place] [address] Performed By: #### S LACTR #### [facility] CLIA [id number] [address] [place] [address] [place] MCV (RBC) [Entitic vol] 86.1 fL Normal 80.0-100.0 [facility] Comment on above: Order Comment: Speci men Type: BLOOD SPECIMEN Ordering Facility: [facility] Address: [address] [place] [address] Performed By: #### S LACTR #### [facility] CLIA [id number] [address] [place] [address] [place] Nucleated RBC (Bld) [#/Vol] 10*3/uL Normal <0.01 [facility] Comment on above: Order Comment: Speci men Type: BLOOD SPECIMEN Ordering Facility: [facility] Address: [address] [place] [address] Performed By: #### S LACTR #### [facility] CLIA [id number] [address] [place] [address] [place] Platelet mean volume (Bld) [Entitic vol] 10.0 fL Normal 9.0-12.7 [facility] Comment on above: Order Comment: Speci men Type: BLOOD SPECIMEN Ordering Facility: [facility] Address: [address] [place] [address] Performed By: #### S LACTR #### [facility] CLIA [id number] [address] [place] [address] [place] Platelets (Bld) [#/Vol] 447 10*3/uL High 150-400 [facility] Comment on above: Order Comment: Speci men Type: BLOOD SPECIMEN Ordering Facility: [facility] Address: [address] [place] [address] Performed By: #### S LACTR #### [facility] CLIA [id number] [address] [place] [address] [place] RBC (Bld) [#/Vol] 4.38 10*6/uL Normal 3.90-5.20 [facility] Comment on above: Order Comment: Speci men Type: BLOOD SPECIMEN Ordering Facility: [facility] Address: [address] [place] [address] Performed By: #### S LACTR #### [facility] CLIA [id number] [address] [place] [address] [facility] [place] WBC (Bld) [#/Vol] 18.58 10*3/uL High 3.70-11.00 [facility] Comment on above: Order Comment: Speci men Type: BLOOD SPECIMEN Ordering Facility: [facility] Address: [address] [place] [address] Performed By: #### S LACTR #### [facility] CLIA [id number] [address] [place], [place] [address] [facility] CONSULT PROGon 03-20-2025 CONSULT PROG HNO ID: [id number] Author: ISIS BE RPh Service: Pharmacy Author [...] if there are questions. Isis Be RPh Normal [facility] CONSULT PROG HNO ID: [id number] Author: EUGENE VIRAMONTES APRN.CNP Service: Pulmonary Disease Author Type: Nurse Practitioner Type: Consult Progress Note Filed: 03/20/2025 11:28 Note Text: [facility] PULMONARY PROGRESS NOTE SERVICE DATE: 03/20/2025 [...] failure (HCC) COPD (chronic obstructive pulmonary disease) ([facility]) 05/25/2012 DDD (degenerative disc disease), cervical 09/03/2018 [...] Stage 3 severe COPD by GOLD classification ([facility]) 2018 Tobacco use greater than 30 years [...] Frequency iv con (more content not included)... Normal [facility] ECHOon 03-20-2025 Echocardiography Echocardiography Report: Transthoracic Echo [facility] Date of service: 03/20/2025 9:25:59 AM Ordering physician: NGUYEN PALACIOS Exam indication: Routine surveillance (>1yr) of Heart [...] * * Final * * * CC [facility] : [id number] ISUID Normal [facility] Magnesium SerPl-mCncon 03-20 Magnesium [Mass/Vol] 2.1 mg/dL Normal 1.6-2.6 [facility] Comment on above: Order Comment: Speci men Type: BLOOD SPECIMEN Ordering Facility: [facility] Address: [address] [place] [address] Performed By: #### S LACTR #### [facility] CLIA [id number] [address] [place] [address] [place] ALLIED HEALTHon 03-19-2025 ALLIED HEALTH HNO ID: [id number] Author: AMY FUENTES RT(Heath) Service: Radiology Author Type: Technologist Type: Allied [...] PATIENT PRESENTS WITH AN IMPLANTABLE OR ATTACHED EXOTIC DANCER: No ALLERGIES: Reviewed and unchanged CONTRAST ALLERGY: [...] DEPARTMENT: CT; Exam(s) Completed: CTA Chest SIGNATURE: Amy Fuentes, RT(R) PATIENT NAME: Gracie Banuelos DATE: March 19, 2025 TIME: 10:13 PM Normal [facility] ARTERIAL BLOOD GASESon 03-19 Base excess Calc (Bld) [Moles/Vol] 3 mmol/L High 0-2 [facility] Comment on above: Order Comment: Reggie fajardo Type: BLOOD SPECIMEN Ordering Facility: [facility] Address: [address] [place] [address] Performed By: #### S LACTR #### [facility] CLIA [id number] [address] [place] [address] [place] Body temperature 98.6 [degF] Normal [facility] Comment on above: Order Comment: Reggie fajardo Type: BLOOD SPECIMEN Ordering Facility: [facility] Address: [address] [place] [address] Performed By: #### S LACTR #### [facility] CLIA [id number] [address] [place] [address] [place] Calcium.ionized (Bld) [Mass/Vol] 1.25 mmol/L Normal 1.08-1.30 [facility] Comment on above: Order Comment: Reggie fajardo Type: BLOOD SPECIMEN Ordering Facility: [facility] Address: [address] [place] [address] Performed By: #### S LACTR #### [facility] CLIA [id number] [address] [place] [address] [place] Carboxyhemoglobin (BldA) [Mass fraction] 0.0 % Normal 0.0-2.0 [facility] Comment on above: Order Comment: Speci men Type: BLOOD SPECIMEN Ordering Facility: [facility] Address: [address] [place] [address] Result Comment: Carb oxyhemoglobin Reference Range for Smokers: 2.0-8.0% Performed By: #### S LACTR #### [facility] CLIA [id number] [address] [place] [address] [place] CO2 (Bld) [Partial pressure] 38 mm Hg Normal 36-46 [facility] Comment on above: Order Comment: Speci men Type: BLOOD SPECIMEN Ordering Facility: [facility] Address: [address] [place] [address] Performed By: #### S LACTR #### [facility] CLIA [id number] [address] [place] [address] [place] Glucose [Mass/Vol] 155 mg/dL High 60-105 [facility] Comment on above: Order Comment: Speci men Type: BLOOD SPECIMEN Ordering Facility: [facility] Address: [address] [place] [address] Performed By: #### S LACTR #### [facility] CLIA [id number] [address] [place] [address] [place] HCO3 (Bld) [Moles/Vol] 27 mmol/L High 22-26 [facility] Comment on above: Order Comment: Speci men Type: BLOOD SPECIMEN Ordering Facility: [facility] Address: [address] [place] [address] Performed By: #### S LACTR #### [facility] CLIA [id number] [address] [place] [address] [place] Hemoglobin (Bld) [Mass/Vol] 12.5 g/dL Normal 11.5-15.5 [facility] Comment on above: Order Comment: Speci men Type: BLOOD SPECIMEN Ordering Facility: [facility] Address: [address] [place] [address] Performed By: #### S LACTR #### [facility] CLIA [id number] [address] [place] [address] [place] Lactate [Moles/Vol] 0.8 mmol/L Normal 0.5-2.2 [facility] Comment on above: Order Comment: Speci men Type: BLOOD SPECIMEN Ordering Facility: [facility] Address: [address] [place] [address] Performed By: #### S LACTR #### [facility] CLIA [id number] [address] [place] [address] [place] LITERS 12 Liters/min Normal [facility] Comment on above: Order Comment: Speci men Type: BLOOD SPECIMEN Ordering Facility: [facility] Address: [address] [place] [address] Performed By: #### S LACTR #### [facility] IA [id number] [address] [place] [address] [place] Methemoglobin (Bld) [Mass fraction] 0.2 % Normal 0.0-1.5 [facility] Comment on above: Order Comment: Speci men Type: BLOOD SPECIMEN Ordering Facility: [facility] Address: [address] [place] [address] Performed By: #### S LACTR #### [facility] IA [id number] [address] [place] [address] [place] O2 THERAPY [place] Humid = Nasal Cannula-Humidified (7-15 LPM) [facility] Comment on above: Order Comment: Speci men Type: BLOOD SPECIMEN Ordering Facility: [facility] Address: [address] [place] [address] Performed By: #### S LACTR #### [facility] IA [id number] [address] [place] [address] [place] Oxygen (Bld) [Partial pressure] 68 mm Hg Low 85-95 [facility] Comment on above: Order Comment: Speci men Type: BLOOD SPECIMEN Ordering Facility: [facility] Address: [address] [place] [address] Performed By: #### S LACTR #### [facility] CLIA [id number] [address] [place] [address] [place] Oxyhemoglobin (BldA) [Mass fraction] 93 % Low 95-98 [facility] Comment on above: Order Comment: Speci men Type: BLOOD SPECIMEN Ordering Facility: [facility] Address: [address] [place] [address] Performed By: #### S LACTR #### [facility] CLIA [id number] [address] [place] [address] [place] pH (Bld) 7.47 [pH] High 7.35-7.45 [facility] Comment on above: Order Comment: Speci men Type: BLOOD SPECIMEN Ordering Facility: [facility] Address: [address] [place] [address] Performed By: #### S LACTR #### [facility] IA [id number] [address] [place] [address] [place] Potassium [Moles/Vol] 4.4 mmol/L Normal 2.5-6.0 [facility] Comment on above: Order Comment: Speci men Type: BLOOD SPECIMEN Ordering Facility: [facility] Address: [address] [place] [address] Performed By: #### S LACTR #### [facility] CLIA [id number] [address] [place] [address] [place] Sodium [Moles/Vol] 135 mmol/L Low 136-144 [facility] Comment on above: Order Comment: Speci men Type: BLOOD SPECIMEN Ordering Facility: [facility] Address: [address] [place] [address] Performed By: #### S LACTR #### [facility] CLIA [id number] [address] [place] [address] [place] Basic metabolic 2000 panelon 03-19-2025 Anion gap [Moles/Vol] 10 mmol/L Normal 5-16 [facility] Comment on above: Order Comment: Speci men Type: BLOOD SPECIMEN Ordering Facility: [facility] Address: [address] [place] [address] Performed By: #### 3 4528-0, 51911-4 #### [facility] CLIA [id number] [address] [place] [address] [place] Calcium [Mass/Vol] 9.4 mg/dL Normal 8.5-10.5 [facility] Comment on above: Order Comment: Speci men Type: BLOOD SPECIMEN Ordering Facility: [facility] Address: [address] [place] [address] Performed By: #### 3 4528-0, 54707-8 #### [facility] CLIA [id number] [address] [place] [address] [place] Chloride [Moles/Vol] 100 mmol/L Normal 98-107 [facility] Comment on above: Order Comment: Speci men Type: BLOOD SPECIMEN Ordering Facility: [facility] Address: [address] [place] [address] Performed By: #### 3 4528-0, 94751-7 #### [facility] CLIA [id number] [address] [place] [address] [place] CO2 [Moles/Vol] 28 mmol/L Normal 21-32 [facility] Comment on above: Order Comment: Speci men Type: BLOOD SPECIMEN Ordering Facility: [facility] Address: [address] [place] [address] Performed By: #### 3 4528-0, 01745-1 #### [facility] CLIA [id number] [address] [place] [address] [place] Creatinine [Mass/Vol] 0.57 mg/dL Normal 0.51-0.95 [facility] Comment on above: Order Comment: Speci men Type: BLOOD SPECIMEN Ordering Facility: [facility] Address: [address] [place] [address] Result Comment: Gretta ents receiving either N-Acetylcysteine (NAC) or Metamizole prior to venipuncture, may have falsely depressed results. Performed By: #### 3 4528-0, 87331-2 #### [facility] CLIA [id number] [address] [place] [address] [place] Creatinine and Glomerular filtration rate.predicted panel (S/P/Bld) 104 mL/min/1.73m??? Normal >=60 [facility] Comment on above: Order Comment: Reggie fajardo Type: BLOOD SPECIMEN Ordering Facility: [facility] Address: [address] [place] [address] Result Comment: Pavan mated Glomerular Filtration Rate [...] actual GFR. Performed By: #### 3 4528-0, 42462-4 #### [facility] CLIA [id number] [address] [place] [address] [place] Glucose [Mass/Vol] 102 mg/dL High 70-100 [facility] Comment on above: Order Comment: Reggie fajardo Type: BLOOD SPECIMEN Ordering Facility: [facility] Address: [address] [place] [address] Result Comment: The [place] [employer] Association (ADA) provides guidance for cutoff [...] Standards of Medical Care in Diabetes 2016, [place] [employer]. Diabetes Care. 2016.39(Suppl 1). Results may be falsely elevated after the administration of Sulfapyridine. Results may be falsely depressed after the administration of Sulfasalazine. Performed By: #### 3 4528-0, 21014-3 #### [facility] CLIA [id number] [address] [place] [address] [place] Potassium [Moles/Vol] 4.4 mmol/L Normal 3.5-5.1 [facility] Comment on above: Order Comment: Speci men Type: BLOOD SPECIMEN Ordering Facility: [facility] Address: [address] [place] [address] Performed By: #### 3 4528-0, 62749-5 #### [facility] CLIA [id number] [address] [place] [address] [place] Sodium [Moles/Vol] 138 mmol/L Normal 136-145 [facility] Comment on above: Order Comment: Speci men Type: BLOOD SPECIMEN Ordering Facility: [facility] Address: [address] [place] [address] Performed By: #### 3 4528-0, 39468-9 #### [facility] CLIA [id number] [address] [place] [address] [place] Urea nitrogen [Mass/Vol] 10 mg/dL Normal 7-26 [facility] Comment on above: Order Comment: Speci men Type: BLOOD SPECIMEN Ordering Facility: [facility] Address: [address] [place] [address] Performed By: #### 3 4528-0, 11471-4 #### [facility] CLIA [id number] [address] [place] [address] [place] CBC panel Auto (Bld)on 03-19 Erythrocyte distribution width (RBC) [Ratio] 15.1 % High 11.5-15.0 [facility] Comment on above: Order Comment: Speci men Type: BLOOD SPECIMEN Ordering Facility: [facility] Address: [address] [place] [address] Performed By: #### 3 4528-0, 68062-8 #### [facility] CLIA [id number] [address] [place] [address] [place] Hematocrit (Bld) [Volume fraction] 33.0 % Low 36.0-46.0 [facility] Comment on above: Order Comment: Speci men Type: BLOOD SPECIMEN Ordering Facility: [facility] Address: [address] [place] [address] Performed By: #### 3 4528-0, 06207-3 #### [facility] CLIA [id number] [address] [place] [address] [place] Hemoglobin (Bld) [Mass/Vol] 10.1 g/dL Low 11.5-15.5 [facility] Comment on above: Order Comment: Speci men Type: BLOOD SPECIMEN Ordering Facility: [facility] Address: [address] [place] [address] Performed By: #### 3 4528-0, 39275-5 #### [facility] CLIA [id number] [address] [place] [address] [place] MCH (RBC) [Entitic mass] 26.5 pg Normal 26.0-34.0 [facility] Comment on above: Order Comment: Speci men Type: BLOOD SPECIMEN Ordering Facility: [facility] Address: [address] [place], [place] [address] Performed By: #### 3 4528-0, 45238-8 #### [facility] CLIA [id number] [address] [place] [address] [place] MCHC (RBC) [Mass/Vol] 30.6 g/dL Normal 30.5-36.0 [facility] Comment on above: Order Comment: Speci men Type: BLOOD SPECIMEN Ordering Facility: [facility] Address: [address] [place] [address] Performed By: #### 3 4528-0, 36402-2 #### [facility] CLIA [id number] [address] [place] [address] [place] MCV (RBC) [Entitic vol] 86.6 fL Normal 80.0-100.0 [facility] Comment on above: Order Comment: Speci men Type: BLOOD SPECIMEN Ordering Facility: [facility] Address: [address] [place] [address] Performed By: #### 3 4528-0, 82569-0 #### [facility] CLIA [id number] [address] [place] [address] [place] Nucleated RBC (Bld) [#/Vol] 10*3/uL Normal <0.01 [facility] Comment on above: Order Comment: Speci men Type: BLOOD SPECIMEN Ordering Facility: [facility] Address: [address] [place] [address] Performed By: #### 3 4528-0, 12920-4 #### [facility] CLIA [id number] [address] [place], [place] [id number] [place] Platelet mean volume (Bld) [Entitic vol] 9.9 fL Normal 9.0-12.7 [facility] Comment on above: Order Comment: Speci men Type: BLOOD SPECIMEN Ordering Facility: [facility] Address: [address] [place] [address] Performed By: #### 3 4528-0, 17313-3 #### [facility] CLIA [id number] [address] [place] [address] [place] Platelets (Bld) [#/Vol] 397 10*3/uL Normal 150-400 [facility] Comment on above: Order Comment: Speci men Type: BLOOD SPECIMEN Ordering Facility: [facility] Address: [address] [place] [address] Performed By: #### 3 4528-0, 04957-1 #### [facility] CLIA [id number] [address] [place] [address] [place] RBC (Bld) [#/Vol] 3.81 10*6/uL Low 3.90-5.20 [facility] Comment on above: Order Comment: Speci men Type: BLOOD SPECIMEN Ordering Facility: [facility] Address: [address] [place] [address] Performed By: #### 3 4528-0, 69116-4 #### [facility] CLIA [id number] [address] [place], [place] [address] [place] WBC (Bld) [#/Vol] 14.59 10*3/uL High 3.70-11.00 [facility] Comment on above: Order Comment: Speci men Type: BLOOD SPECIMEN Ordering Facility: [facility] Address: [address] [place] [address] Performed By: #### 3 4528-0, 90614-1 #### [facility] CLIA [id number] [address] [place] [id number] [facility] [place] CONSULT PROGon 03-19-2025 CONSULT PROG HNO ID: [id number] Author: BEENA MORTON RPh Service: Pharmacy Author [...] No results found for: FELTON MORTON, PHARMACIST, [facility] CTA CHEST (NONGATED) W IVCON on 03-19-2025 CTA CHEST (NONGATED) W IVCON * * *Final Report* * * DATE OF EXAM: Mar 19 2025 10:16PM [facility] 0123 - CTA CHEST (NONGATED) W IVCON [...] previous exam. 4. Moderate to advanced emphysema. [facility] Trans[facility] Date/Time: Mar 19 2025 11:10P Dictated by : DEBORAH PARK MD This examination was interpreted and the report reviewed and electronically signed by: DEBORAH PARK MD on Mar 19 2025 11:29PM EST [id number] Normal [facility] ECG COMPLETEon 03-19-2025 ECG COMPLETE Ventricular Rate : 1 26 BPM Atrial Rate : 126 BPM P-R Interval : 174 ms QRS Duration : 78 ms Q-T Interval : 316 ms QTC Calculation(Bazett) : 457 ms Calculated P Dewar : 77 degrees Calculated R Dewar : 67 degrees Calculated T Dewar : 63 degrees Sinus tachycardia Minimal voltage criteria for LVH, may be normal variant ( [place]ell product ) Septal infarct , age undetermined Abnormal ECG No previous ECGs available Confirmed by TASNEEM BALDWIN MD ([id number]) on 04/19/2025 4:38:09 PM NAME : GRACIE BANUELOS PID : [id number] : 1965 Gender : Female Race : ORD : [id number] Procedure Date : Mar 19 2025 15:33:31 Edit Date : Apr 19 2025 16:38:12 Diagnosis: Sinus tachycardia Minimal voltage criteria for LVH, may be normal variant ( [place] product ) Septal infarct , age undetermined Abnormal ECG No previous ECGs available Confirmed by TASNEEM BALDWIN MD ([id number]) on 04/19/2025 4:38:09 PM Test Reason : HCS Location : 8 : [place] [address] Overread By : TASNEEM BALDWIN MD Edited By : TASNEEM BALDWIN MD Referred By : MACARIO FELIZ Acquired by : 7m, Normal [facility] HIGH SENSITIVITY TROPONIN Io n 03-19-2025 Tropinin I.cardiac panel High sensitivity method 7.4 pg/mL Normal 0.0-34.0 [facility] Comment on above: Order Comment: Speci men Type: BLOOD SPECIMEN Ordering Facility: [facility] Address: [address] [place] [address] Performed By: #### 3 4528-0, 33866-7 #### [facility] CLIA [id number] [address] [place] [address] MEDICAL EMERon 03-19-2025 MEDICAL FREYA HNO ID: [id number] Author: CANDIE HORTA APRN.CNP Service: Critical Care Author Type: Nurse [...] heart rate improved. She will remain on [facility]. Attending physicianwas at bedside and was aware. CCT: 17 min Normal [facility] Magnesium SerPl-mCncon 03-19 Magnesium [Mass/Vol] 1.8 mg/dL Normal 1.6-2.6 [facility] Comment on above: Order Comment: Reggie fajardo Type: BLOOD SPECIMEN Ordering Facility: [facility] Address: [address] [place] [address] Performed By: #### 3 4528-0, 94431-1 #### [facility] CLIA [id number] [address] [place] [address] [place] NT-proBNP SerPl-ncon 03-19 Natriuretic peptide.B prohormone N-Terminal [Mass/Vol] 3517 pg/mL High <125 [facility] Comment on above: Order Comment: Reggie fajardo Type: BLOOD SPECIMEN Ordering Facility: [facility] Address: [address] [place] [address] Result Comment: NT-p roBNP results of less than 300 pg/mL likely rules out acute congestive heart failure with 99% predictive value. NOTE: These cutoff points are suggested for ACUTE CHF DIAGNOSIS only Less than 50 years\X09\ Greater than 450 pg/mL 50 - 75 years\X09\\X09\ Greater than 900 pg/mL Greater than 75 years\X09\ Greater than 1800 pg/mL Performed By: #### 3 4528-0, 45776-0 #### [facility] CLIA [id number] [address] [place] [address] [place] Procalcitonin SerPl-ncon 0 03-19-2025 Procalcitonin [Mass/Vol] 1.51 ng/mL High 0.00-0.50 [facility] Comment on above: Order Comment: Reggie fajardo Type: BLOOD SPECIMEN Ordering Facility: [facility] Address: [address] [place] [address] Result Comment: PCT Concentration Interpretation PCT <=0.1 [...] septic shock. Performed By: #### 3 4528-0, 16419-7 #### [facility] CLIA [id number] [address] [place] [id number] [place] STAPHYLOCOCCUS AUREUS AND MR SA SCREEN, PCR, NASALon 03-19-2025 S. aureus and MRSA panel KANDY+probe (Nose) Methicillin-SUSCEPTIBLE Staphylococcus aureus Detected Abnormal Not Detected [facility] Comment on above: Order Comment: Speci men Type: BLOOD SPECIMEN Ordering Facility: [facility] Address: [address] [place] [address] [place] [id number] Performed By: #### S LACTR #### [facility] CLIA [id number] [address] [id number] [place] XR CHEST 1V [...] residual basilar and retrocardiac opacity. Dictated by Molten Iron Pourer: Daniel Castro DO I, Jose Guadalupe Morocho MD, have supervised the procedure and/or image review, and agree with the above interpretation and report. Weathercaster: PSCB Transcribe Date/Time: Mar 19 2025 3:35P Dictated by : DANIEL CASTRO DO This examination was interpreted and the report reviewed and electronically signed by: JOSE GUADALUPE MOROCHO MD on Mar 19 2025 3:41PM EST [id number] Normal [facility] Basic metabolic 2000 panelon 03-18-2025 Anion gap [Moles/Vol] 10 mmol/L Normal 5-16 [facility] Comment on above: Order Comment: Speci men Type: BLOOD SPECIMENOrdering Facility: [facility] Address: [address] [place] [address] Performed By: #### 2 4321-2, 77649-8, 2777-1, 6-4, 82818-0 ####[facility]IA [id number] [place] [id number] [place] Calcium [Mass/Vol] 9.1 mg/dL Normal 8.5-10.5 [facility] Comment on above: Order Comment: Speci men Type: BLOOD SPECIMENOrdering Facility: [facility] Address: [address] [place] [address] Performed By: #### 2 4321-2, 67786-2, 277-1, 2275-4, 91876-5 ####[facility]ORYCLIA [id number] [place] [address] [place] Chloride [Moles/Vol] 101 mmol/L Normal 98-107 [facility] Comment on above: Order Comment: Speci men Type: BLOOD SPECIMENOrdering Facility: [facility] Address: [address] [place], [place] [address] Performed By: #### 2 4321-2, 98545-8, 277-1, 2275-4, 12733-5 ####[facility]ORY[facility]IA [id number] [place] [address] [place] CO2 [Moles/Vol] 31 mmol/L Normal 21-32 [facility] Comment on above: Order Comment: Speci men Type: BLOOD SPECIMENOrdering Facility: [facility] Address: [address] [place], [place] [address] Performed By: #### 2 4321-2, 60476-0, 2777-1, 6-4, 97411-0 ####[facility]ORY[facility]IA [id number] [place] [id number] [place] Creatinine [Mass/Vol] 0.52 mg/dL Normal 0.51-0.95 [facility] Comment on above: Order Comment: Speci men Type: BLOOD SPECIMENOrdering Facility: [facility] Address: [address] [place] [address] Result Comment: Gretta ents receiving either N-Acetylcysteine (NAC) or Metamizole prior to venipuncture, may have falsely depressed results. Performed By: #### 2 4321-2, 81122-7, 2777-1, 6-4, 73885-6 ####[facility]ORYCLIA [id number] [place] [address] [facility] Creatinine and Glomerular filtration rate.predicted panel (S/P/Bld) 106 mL/min/1.73m??? Normal >=60 [facility] Comment on above: Order Comment: Speci men Type: BLOOD SPECIMENOrdering Facility: [facility] Address: [address] [place] [address] Result Comment: Pavan mated Glomerular Filtration Rate [...] actual GFR. Performed By: #### 2 4321-2, 77218-0, 2777-1, 6-4, 73480-9 ####[facility]IA [id number] [place] [id number] [place] Glucose [Mass/Vol] 103 mg/dL High 70-100 [facility] Comment on above: Order Comment: Speci men Type: BLOOD SPECIMENOrdering Facility: [facility] Address: [address] [place] [address] Result Comment: The [place] Diabetes Association (ADA) provides guidance for cutoff [...] Standards of Medical Care in Diabetes 2016, [place] [employer]. Diabetes Care. 2016.39(Suppl 1). Results may be falsely elevated after the administration of Sulfapyridine. Results may be falsely depressed after the administration of Sulfasalazine. Performed By: #### 2 4321-2, 96398-2, 2777-1, 6-4, 71488-9 ####[facility]ORYCLIA [id number] [place] [phone] [place] Potassium [Moles/Vol] 3.5 mmol/L Normal 3.5-5.1 [facility] Comment on above: Order Comment: Speci men Type: BLOOD SPECIMENOrdering Facility: [facility] Address: [address] [place] [address] Performed By: #### 2 4321-2, 50427-4, 277-, 2275-, 13254-8 ####[facility]ORYCLIA [id number] [place] [phone] [place] Sodium [Moles/Vol] 142 mmol/L Normal 136-145 [facility] Comment on above: Order Comment: Speci men Type: BLOOD SPECIMENOrdering Facility: [facility] Address: [address] [place] [address] Performed By: #### 2 4321-2, 58587-3, 2777-1, 2275-4, 14607-9 ####[facility]ORYCLIA [id number] [place] [phone] [place] Urea nitrogen [Mass/Vol] 10 mg/dL Normal 7-26 [facility] Comment on above: Order Comment: Speci men Type: BLOOD SPECIMENOrdering Facility: [facility] Address: [address] [place] [address] Performed By: #### 2 4321-2, 05886-7, 2777-1, 2276-4, 29584-3 ####[facility]ORYCLIA [id number] [address] [place] C diff Tox gens Stl Ql KANDY+p robeon 03-18-2025 C. difficile toxin genes KANDY+probe Ql (Stl) Negative Normal Negative for C. difficile toxin by PCR [facility] Comment on above: Order Comment: Speci men Type: BLOOD SPECIMEN Ordering Facility: [facility] Address: [address] [place] [address] Performed By: #### 3 4528-0, 65083-7 #### [facility] CLIA [id number] [address] [place] [address] [place] CBC panel Auto (Bld)on 03-18 Erythrocyte distribution width (RBC) [Ratio] 15.1 % High 11.5-15.0 [facility] Comment on above: Order Comment: Speci men Type: BLOOD SPECIMENOrdering Facility: [facility] Address: [address] [place] [address] Performed By: #### 5 8410-2 ####[facility]ORYCLIA [id number] [address] [place] Hematocrit (Bld) [Volume fraction] 29.5 % Low 36.0-46.0 [facility] Comment on above: Order Comment: Speci men Type: BLOOD SPECIMENOrdering Facility: [facility] Address: [address] [place] [address] Performed By: #### 5 8410-2 ####[facility]ORYCLIA [id number] [place] [id number] [place] Hemoglobin (Bld) [Mass/Vol] 9.2 g/dL Low 11.5-15.5 [facility] Comment on above: Order Comment: Speci men Type: BLOOD SPECIMENOrdering Facility: [facility] Address: [address] [place] [address] Performed By: #### 5 8410-2 ####[facility]ORYCLIA [id number] [address] MCH (RBC) [Entitic mass] 26.7 pg Normal 26.0-34.0 [facility] Comment on above: Order Comment: Speci men Type: BLOOD SPECIMENOrdering Facility: [facility] Address: [address] [place] [address] Performed By: #### 5 8410-2 ####[facility]ORYCLIA [id number] [address] [place] MCHC (RBC) [Mass/Vol] 31.2 g/dL Normal 30.5-36.0 [facility] Comment on above: Order Comment: Speci men Type: BLOOD SPECIMENOrdering Facility: [facility] Address: [address] [place] [address] Performed By: #### 5 8410-2 ####[facility]ORYCLIA [id number] [address] [place] MCV (RBC) [Entitic vol] 85.5 fL Normal 80.0-100.0 [facility] Comment on above: Order Comment: Speci men Type: BLOOD SPECIMENOrdering Facility: [facility] Address: [address] [place] [address] Performed By: #### 5 8410-2 ####[facility]ORYCLIA [id number] [address] Nucleated RBC (Bld) [#/Vol] 10*3/uL Normal <0.01 [facility] Comment on above: Order Comment: Speci men Type: BLOOD SPECIMENOrdering Facility: [facility] Address: [address] [place] [address] Performed By: #### 5 8410-2 ####[facility]ORYCLIA [id number] [address] [place] Platelet mean volume (Bld) [Entitic vol] 9.8 fL Normal 9.0-12.7 [facility] Comment on above: Order Comment: Speci men Type: BLOOD SPECIMENOrdering Facility: [facility] Address: [address] [place] [address] Performed By: #### 5 8410-2 ####[facility]ORYCLIA [id number] [place] [id number] [place] Platelets (Bld) [#/Vol] 332 10*3/uL Normal 150-400 [facility] Comment on above: Order Comment: Speci men Type: BLOOD SPECIMENOrdering Facility: [facility] Address: [address] [place] [address] Performed By: #### 5 8410-2 ####[facility]ORYCLIA [id number] [place] [id number] [place] RBC (Bld) [#/Vol] 3.45 10*6/uL Low 3.90-5.20 [facility] Comment on above: Order Comment: Speci men Type: BLOOD SPECIMENOrdering Facility: [facility] Address: [address] [place] [address] Performed By: #### 5 8410-2 ####[facility]ORYCLIA [id number] [address] OF [place] WBC (Bld) [#/Vol] 17.37 10*3/uL High 3.70-11.00 [facility] Comment on above: Order Comment: Speci men Type: BLOOD SPECIMENOrdering Facility: [facility] Address: [address] [place] [address] Performed By: #### 5 8410-2 ####[facility]ORYCLIA [id number] [place] [phone] [facility] [place] Calcium.ionized [Moles/Vol]o n 03-18-2025 Calcium.ionized (Bld) [Mass/Vol] 1.20 mmol/L Normal 1.08-1.30 [facility] Comment on above: Order Comment: Speci men Type: BLOOD SPECIMENOrdering Facility: [facility] Address: [address] [place], [place] [address] Performed By: #### 1 995-0 ####[facility]ORYCLIA [id number] [place] [address] [place] Calcium.ionized adjusted to pH 7.4 (Bld) [Moles/Vol] 1.22 mmol/L Normal 1.08-1.30 [facility] Comment on above: Order Comment: Speci men Type: BLOOD SPECIMENOrdering Facility: [facility] Address: [address] [place] [address] Performed By: #### 1 995-0 ####[facility]ORYCLIA [id number] [place] [id number] [place] Ferritin SerPl-mCncon 2024 Ferritin [Mass/Vol] 203.9 ng/mL Normal 8.0-307.0 [facility] Comment on above: Order Comment: Speci men Type: BLOOD SPECIMEN Ordering Facility: [facility] Address: [address] [place] [address] Performed By: #### 3 4528-0, 18041-9 #### [facility] CLIA [id number] [address] [place] [address] [place] Gastrointestinal pathogens p tuan KANDY+probe (Stl)on 03-18-2025 ADENOVIRUS F 40/41 DNA Not detected Normal Not Detecte d [facility] Comment on above: Order Comment: Speci men Type: BLOOD SPECIMEN Ordering Facility: [facility] Address: [address] [place] [address] Performed By: #### 3 4528-0, 60500-4 #### [facility] CLIA [id number] [address] [place] [address] [facility] [place] ASTROVIRUS RNA Not detected Normal Not Detected [facility] Comment on above: Order Comment: Speci men Type: BLOOD SPECIMEN Ordering Facility: [facility] Address: [address] [place] [address] Performed By: #### 3 4528-0, 91578-0 #### [facility] CLIA [id number] [address] [place] [address] [facility] [place] C. cayetanensis DNA KANDY+probe Ql (Unsp spec) Not detected Normal Not Detected [facility] Comment on above: Order Comment: Speci men Type: BLOOD SPECIMEN Ordering Facility: [facility] Address: [address] [place] [address] Performed By: #### 3 4528-0, 80653-6 #### [facility] CLIA [id number] [address] [place] [address] [place] Campylobacter sp DNA.diarrheagenic KANDY+probe Ql (Stl) Not detected Normal Not Detected [facility] Comment on above: Order Comment: Speci men Type: BLOOD SPECIMEN Ordering Facility: [facility] Address: [address] [place] [address] Performed By: #### 3 4528-0, 22585-0 #### [facility] CLIA [id number] [address] [place] [address] OF [place] Cryptosporidium sp DNA KANDY+probe Ql (Unsp spec) Not detected Normal Not Detected [facility] Comment on above: Order Comment: Speci men Type: BLOOD SPECIMEN Ordering Facility: [facility] Address: [address] [place] [address] Performed By: #### 3 4528-0, 65340-7 #### [facility] CLIA [id number] [address] [place] [address] [facility] [place] E. coli O157:H7 DNA KANDY+probe Ql (Unsp spec) Not applicable Normal Not detected [facility] Comment on above: Order Comment: Speci men Type: BLOOD SPECIMEN Ordering Facility: [facility] Address: [address] [place] [address] Performed By: #### 3 4528-0, 48773-7 #### [facility] CLIA [id number] [address] [place] [address] [facility] [place] E. coli stx1+stx2 genes KANDY+probe Ql (Stl) Not detected Normal Not Detected [facility] Comment on above: Order Comment: Speci men Type: BLOOD SPECIMEN Ordering Facility: [facility] Address: [address] [place] [address] Performed By: #### 3 4528-0, 08057-5 #### [facility] CLIA [id number] [address] [place] [address] [facility] [place] E. histolytica DNA KANDY+probe Ql (Unsp spec) Not detected Normal Not Detected [facility] Comment on above: Order Comment: Speci men Type: BLOOD SPECIMEN Ordering Facility: [facility] Address: [address] [place] [address] Performed By: #### 3 4528-0, 14907-2 #### [facility] CLIA [id number] [address] [place] [address] [place] ENTEROAGGREGATIVE E. COLI (EAEC) DNA Not detected Normal Not Detected [facility] Comment on above: Order Comment: Speci men Type: BLOOD SPECIMEN Ordering Facility: [facility] Address: [address] [place] [address] Performed By: #### 3 4528-0, 73908-7 #### [facility] CLIA [id number] [address] [place] [address] [place] ENTEROPATHOGENIC E. COLI (EPEC) DNA Not detected Normal Not detected [facility] Comment on above: Order Comment: Speci men Type: BLOOD SPECIMEN [facility]ing Facility: [facility] Address: [facility] [place] [address] Performed By: #### 3 4528-0, 98631-1 #### [facility] CLIA [id number] [address] [place] [address] [facility] [place] ENTEROTOXIGENIC E. COLI (ETEC) DNA Not detected Normal Not Detected [facility] Comment on above: Order Comment: Speci men Type: BLOOD SPECIMEN Ordering Facility: [facility] Address: [address] [place] [address] Performed By: #### 3 4528-0, 40305-7 #### [facility] CLIA [id number] [address] [place] [address] [place] G. lamblia DNA KANDY+probe Ql (Unsp spec) Not detected Normal Not Detected [facility] Comment on above: Order Comment: Kettyi men Type: BLOOD SPECIMEN Ordering Facility: [facility] Address: [address] [place] [address] Performed By: #### 3 4528-0, 56332-9 #### [facility] CLIA [id number] [address] [place] [address] [place] NOROVIRUS GI/GII RNA Detected Abnormal Not Detected [facility] Comment on above: Order Comment: Speci men Type: BLOOD SPECIMEN Ordering Facility: [facility] Address: [address] [place] [address] Result Comment: The Expensify Filmarray Gastrointestinal Panel has known specificity limitations for norovirus detection. False positives are more likely when prevalence is low (ie. summer). Standalone norovirus PCR (SQNORPCR) is available if confirmation is desired. Performed By: #### 3 4528-0, 25541-1 #### [facility] CLIA [id number] [address] [place] [address] OF [place] PLESIOMONAS SHIGELLOIDES DNA Not detected Normal Not Detected [facility] Comment on above: Order Comment: Reggie fajardo Type: BLOOD SPECIMEN [facility] Facility[facility] Address: [address] [place] [address] Performed By: #### 3 4528-0, 17538-0 #### [facility] CLIA [id number] [address] [place] [address] [place] ROTAVIRUS A RNA Not detected Normal Not Detected [facility] Comment on above: Order Comment: Reggie fajardo Type: BLOOD SPECIMEN [facility]ing Facility: [facility] Address: [address] [place] [address] Performed By: #### 3 4528-0, 83645-5 #### [facility] CLIA [id number] [address] [place] [address] [place] Salmonella sp DNA KANDY+probe Ql (Unsp spec) Not detected Normal Not Detected [facility] Comment on above: Order Comment: Speci men Type: BLOOD SPECIMEN Ordering Facility: [facility] Address: [address] [place] [address] Performed By: #### 3 4528-0, 61790-5 #### [facility] CLIA [id number] [address] [place] [address] [place] SAPOVIRUS (GENOGROUPS I, II, IV, V) RNA Not detected Normal Not Detected [facility] Comment on above: Order Comment: Speci men Type: BLOOD SPECIMEN [facility]ing Facility: [facility] Address: [address] [place] [address] Performed By: #### 3 4528-0, 70601-5 #### [facility] CLIA [id number] [address] [place] [address] [place] Shigella species+EIEC invasion plasmid antigen H ipaH gene KANDY+probe Ql (Stl) Not detected Normal Not Detected [facility] Comment on above: Order Comment: Speci men Type: BLOOD SPECIMEN Ordering Facility: [facility] Address: [address] [place] [address] Performed By: #### 3 4528-0, 87353-3 #### [facility] CLIA [id number] [address] [place] [address] [place] V. cholerae DNA KANDY+probe Ql (Unsp spec) Not detected Normal Not Detected [facility] Comment on above: Order Comment: Speci men Type: BLOOD SPECIMEN Ordering Facility: [facility] Address: [address] [place] [address] Performed By: #### 3 4528-0, 57052-9 #### [facility] CLIA [id number] [address] [place] [address] [facility] [place] Vibrio sp DNA KANDY+probe Nom (Unsp spec) Not detected Normal Not Detected [facility] Comment on above: Order Comment: Speci men Type: BLOOD SPECIMEN Ordering Facility: [facility] Address: [address] [place] [address] Performed By: #### 3 4528-0, 12832-4 #### [facility] CLIA [id number] [address] [place] [address] [place] Yersinia sp DNA KANDY+probe Nom (Unsp spec) Not detected Normal Not Detected [facility] Comment on above: Order Comment: Speci men Type: BLOOD SPECIMEN Ordering Facility: [facility] Address: [address] [place] [address] Performed By: #### 3 4528-0, 38456-4 #### [facility] CLIA [id number] [address] [place], [place] [address] [place] Iron and Iron binding capaci ty panelon 03-18-2025 Iron [Mass/Vol] 16 ug/dL Low 50-170 [facility] Comment on above: Order Comment: Speci men Type: BLOOD SPECIMEN Ordering Facility: [facility] Address: [address] [place] [address] Result Comment: Gretta ents treated with metal-binding drugs (e.g.deferoxamine) may have depressed iron values, as chelated iron may not properly react in the Siemens iron assay. Performed By: #### 3 4528-0, 32257-3 #### [facility] CLIA [id number] [address] [place] [address] [place] Iron binding capacity [Mass/Vol] 203 ug/dL Low 221-481 [facility] Comment on above: Order Comment: Speci men Type: BLOOD SPECIMEN Ordering Facility: [facility] Address: [address] [place] [address] Performed By: #### 3 4528-0, 51677-7 #### [facility] [facility] CLIA [id number] [address] [place] [address] [place] Iron/TIBC [Molar ratio] 7.9 % Low 22.0-44.0 M [facility] Comment on above: Order Comment: Speci men Type: BLOOD SPECIMEN Ordering Facility: [facility] Address: [address] [place] [address] Performed By: #### 3 4528-0, 10160-4 #### [facility] CLIA [id number] [address] [place] [address] [place] Magnesium SerPl-ncon 03-18 Magnesium [Mass/Vol] 1.6 mg/dL Normal 1.6-2.6 [facility] Comment on above: Order Comment: Reggie fajardo Type: BLOOD SPECIMEN Ordering Facility: [facility] Address: [address] [place] [address] Performed By: #### 3 4528-0, 63606-9 #### [facility] CLIA [id number] [address] [place] [address] [place] NURSING PROGon 03-18-2025 NURSING PROG HNO ID: [id number] Author: RINKU STERN, SARWAT Service: Nursing Author Type: Registered Nurse Type: Nursing Progress Note Filed: 03/18/2025 10:54 Note Text: Other: Patient Med Rec incomplete on transfer, Nurse Colleen Notified on 7m, patient unsure of medications, asked sister (Domonique) to bring in list from home. Report called, all questions answered. Normal [facility] Phosphate [Mass/Vol] 3.8 mg/dL Normal 2.5-4.9 [facility] Comment on above: Order Comment: Reggie fajardo Type: BLOOD SPECIMEN Ordering Facility: [facility] Address: [address] [place] [address] Result Comment: DELT A CHECK&XA&Delta Check Reviewed Elevated m-protein (paraprotein) levels in the serum may be exhibited in patients with monoclonal gammopathies, causing falsely elevated inorganic phosphorus results. Performed By: #### 3 4528-0, 79503-9 #### [facility] CLIA [id number] [address] [place], [place] [address] [place] Respiratory Cultureon 2024 RESPC Normal [facility] Comment on above: Performed By: #### M 100.2000, M100.2400 ####[facility] [id number] [place], [address] Basic metabolic 2000 panelon 03-17-2025 Anion gap [Moles/Vol] 4 mmol/L Low 5-16 [facility] Comment on above: Order Comment: Speci men Type: BLOOD SPECIMENOrdering Facility: [facility] Address: [address] [place] [id number] Performed By: #### 2 4321-2, , 2776-09 ####[facility] [id number] [place] [id number] [place] Calcium [Mass/Vol] 9.0 mg/dL Normal 8.5-10.5 [facility] Comment on above: Order Comment: Speci men Type: BLOOD SPECIMENOrdering Facility: [facility] Address: [address] [place] [address] [place] [address] Performed By: #### 2 4321-2, , 2776-09 ####[facility]IA [id number] [place] [address] [place] Chloride [Moles/Vol] 104 mmol/L Normal 98-107 [facility] Comment on above: Order Comment: Speci men Type: BLOOD SPECIMENOrdering Facility: [facility] Address: [address] [place] [address] Performed By: #### 2 4321-2, , 2776-09 ####[facility]IA [id number] [place] [id number] [place] CO2 [Moles/Vol] 32 mmol/L Normal 21-32 [facility] Comment on above: Order Comment: Speci men Type: BLOOD SPECIMENOrdering Facility: [facility] Address: [address] [place] [address] [place] [id number] Performed By: #### 2 4321-2, , 2776-09 ####[facility]IA [id number] [place] [id number] [place] Creatinine [Mass/Vol] 0.65 mg/dL Normal 0.51-0.95 [facility] Comment on above: Order Comment: Speci men Type: BLOOD SPECIMENOrdering Facility: [facility] Address: [address] [place] [address] Result Comment: Gretta ents receiving either N-Acetylcysteine (NAC) or Metamizole prior to venipuncture, may have falsely depressed results. Performed By: #### 2 4321-2, , 2776-09 ####[facility]IA [id number] [place] [address] [place] Creatinine and Glomerular filtration rate.predicted panel (S/P/Bld) 100 mL/min/1.73m??? Normal >=60 [facility] Comment on above: Order Comment: Reggie fajardo Type: BLOOD SPECIMENOrdering Facility: [facility] Address: [address] [place] [address] Result Comment: Pavan mated Glomerular Filtration Rate [...] actual GFR. Performed By: #### 2 4321-2, , 2776-09 ####[facility]IA [id number] [place] [address] [place] Glucose [Mass/Vol] 179 mg/dL High 70-100 [facility] Comment on above: Order Comment: Reggie fajardo Type: BLOOD SPECIMENOrdering Facility: [facility] Address: [address] [place] [address] Result Comment: The [place] Diabetes Association (ADA) provides guidance for cutoff [...] Standards of Medical Care in Diabetes 2016, [place] [employer]. Diabetes Care. 2016.39(Suppl 1). Results may be falsely elevated after the administration of Sulfapyridine. Results may be falsely depressed after the administration of Sulfasalazine. Performed By: #### 2 4321-2, , 2776-09 ####[facility]IA [id number] [place] [id number] [place] Potassium [Moles/Vol] 2.4 mmol/L Critically low 3.5-5.1 [facility] Comment on above: Order Comment: Speci men Type: BLOOD SPECIMENOrdering Facility: [facility] Address: [address] [place] [address] Result Comment: CRIT ICAL Performed By: #### 2 4321-2, , 2776-09 ####[facility]IA [id number] [place] [address] [place] Sodium [Moles/Vol] 140 mmol/L Normal 136-145 [facility] Comment on above: Order Comment: Speci men Type: BLOOD SPECIMENOrdering Facility: [facility] Address: [address] [place] [address] Performed By: #### 2 4321-2, , 2776-09 ####[facility]IA [id number] [address] [place] Urea nitrogen [Mass/Vol] 11 mg/dL Normal 7-26 [facility] Comment on above: Order Comment: Speci men Type: BLOOD SPECIMENOrdering Facility: [facility] Address: [address] [place] [address] Performed By: #### 2 4321-2, , 2776-09 ####[facility]IA [id number] [place] [id number] [place] CBC panel Auto (Bld)on 03-17 Erythrocyte distribution width (RBC) [Ratio] 14.6 % Normal 11.5-15.0 [facility] Comment on above: Order Comment: Speci men Type: BLOOD SPECIMENOrdering Facility: [facility] Address: [address] [place] [address] Performed By: #### 5 8410-2 ####[facility]IA [id number] [address] OF [place] Hematocrit (Bld) [Volume fraction] 29.9 % Low 36.0-46.0 [facility] Comment on above: Order Comment: Speci men Type: BLOOD SPECIMENOrdering Facility: [facility] Address: [address] [place] [address] Performed By: #### 5 8410-2 ####[facility]IA [id number] [address] [place] Hemoglobin (Bld) [Mass/Vol] 9.3 g/dL Low 11.5-15.5 [facility] Comment on above: Order Comment: Speci men Type: BLOOD SPECIMENOrdering Facility: [facility] Address: [address] [place] [address] Performed By: #### 5 8410-2 ####[facility]ORYCLIA [id number] [address] OF [place] MCH (RBC) [Entitic mass] 26.4 pg Normal 26.0-34.0 [facility] Comment on above: Order Comment: Speci men Type: BLOOD SPECIMENOrdering Facility: [facility] Address: [address] [place] [address] Performed By: #### 5 8410-2 ####[facility]CLIA [id number] [address] [place] MCHC (RBC) [Mass/Vol] 31.1 g/dL Normal 30.5-36.0 [facility] Comment on above: Order Comment: Speci men Type: BLOOD SPECIMENOrdering Facility: [facility] Address: [address] [place] [address] Performed By: #### 5 8410-2 ####[facility]ORYCLIA [id number] [address] OF [place] MCV (RBC) [Entitic vol] 84.9 fL Normal 80.0-100.0 M [facility] Comment on above: Order Comment: Speci men Type: BLOOD SPECIMENOrdering Facility: [facility] Address: [address] [place] [address] Performed By: #### 5 8410-2 ####[facility]ORYCLIA [id number] [place] [address] [place] Nucleated RBC (Bld) [#/Vol] 10*3/uL Normal <0.01 [facility] Comment on above: Order Comment: Speci men Type: BLOOD SPECIMENOrdering Facility: [facility] Address: [address] [place] [address] Performed By: #### 5 8410-2 ####[facility]ORYCLIA [id number] [place] [address] [place] Platelet mean volume (Bld) [Entitic vol] 10.4 fL Normal 9.0-12.7 [facility] Comment on above: Order Comment: Speci men Type: BLOOD SPECIMENOrdering Facility: [facility] Address: [address] [place] [address] Performed By: #### 5 8410-2 ####[facility]ORYCLIA [id number] [place] [address] [place] Platelets (Bld) [#/Vol] 333 10*3/uL Normal 150-400 [facility] Comment on above: Order Comment: Speci men Type: BLOOD SPECIMENOrdering Facility: [facility] Address: [address] [place] [address] Performed By: #### 5 8410-2 ####[facility]ORYCLIA [id number] [place] [address] [place] RBC (Bld) [#/Vol] 3.52 10*6/uL Low 3.90-5.20 [facility] Comment on above: Order Comment: Speci men Type: BLOOD SPECIMENOrdering Facility: [facility] Address: [address] [place], [place] [address] Performed By: #### 5 8410-2 ####[facility]ORYCLIA [id number] [place] [address] [place] WBC (Bld) [#/Vol] 19.89 10*3/uL High 3.70-11.00 [facility] Comment on above: Order Comment: Speci men Type: BLOOD SPECIMENOrdering Facility: [facility] Address: [address] [place], [place] [address] Performed By: #### 5 8410-2 ####[facility]ORYCLIA [id number] [place] [id number] [facility] Magnesium SerPl-ncon 03-17 Magnesium [Mass/Vol] 1.8 mg/dL Normal 1.6-2.6 [facility] Comment on above: Order Comment: Speci men Type: BLOOD SPECIMENOrdering Facility: [facility] Address: [address] [place], [place] [address] Performed By: #### 2 4321-2, 47766-7, 2776-09 ####[facility]ORYCLIA [id number] [place] [id number] [place] Phosphate SerPl-mCncon 03-17 Phosphate [Mass/Vol] 1.0 mg/dL Low 2.5-4.9 [facility] Comment on above: Order Comment: Speci men Type: BLOOD SPECIMENOrdering Facility: [facility] Address: [address] [place], [place] [address] Result Comment: CRIT ICAL Elevated m-protein (paraprotein) levels in the serum may be exhibited in patients with monoclonal gammopathies, causing falsely elevated inorganic phosphorus results. Performed By: #### 2 4321-2, 66744-8, 2777-1 ####[facility]ORYCLIA [id number] [place] [id number] [place] ALLIED HEALTHon 03-16-2025 ALLIED HEALTH HNO ID: [id number] Author: SUELLEN CALDERON Tech Service: Radiology Author Type: Facility Administrator Type: Allied Health Filed: 03/16/2025 01:47 Note [...] PATIENT PRESENTS WITH AN IMPLANTABLE OR ATTACHED EXOTIC DANCER: No ALLERGIES: Reviewed and unchanged CONTRAST ALLERGY: [...] March 16, 2025 TIME: 1:46 AM Normal [facility] ARTERIAL BLOOD GASESon 03-16 Base deficit (BldA) [Moles/Vol] -5 mmol/L Low -2-0 [facility] Comment on above: Order Comment: Specmiya fajardo Type: ARTERIAL BLOOD SPECIMEN Order[facility] Facility: [facility] Address: [address] [place] [address] Performed By: #### A LLBG #### [facility] CLIA [id number] [address] [place] [address] [place] Body temperature 97.52 [degF] Normal [facility] Comment on above: Order Comment: Reggie fajardo Type: ARTERIAL BLOOD SPECIMEN Ordering Facility: [facility] Address: [address] [place] [address] Performed By: #### A LLBG #### [facility] CLIA [id number] [address] [place] [address] [place] Calcium.ionized (Bld) [Mass/Vol] 1.20 mmol/L Normal 1.08-1.30 [facility] Comment on above: Order Comment: Speci tana Type: ARTERIAL BLOOD SPECIMEN Ordering Facility: [facility] Address: [address] [place] [address] Performed By: #### A LLBG #### [facility] CLIA [id number] [address] [place] [address] [place] Carboxyhemoglobin (BldA) [Mass fraction] 0.3 % Normal 0.0-2.0 [facility] Comment on above: Order Comment: Speci men Type: ARTERIAL BLOOD SPECIMEN Ordering Facility: [facility] Address: [address] [place] [address] Result Comment: Carb oxyhemoglobin Reference Range for Smokers: 2.0-8.0% Performed By: #### A LLBG #### [facility] CLIA [id number] [address] [place] [address] [place] CO2 (Bld) [Partial pressure] 46 mm Hg Normal 36-46 [facility] Comment on above: Order Comment: Speci men Type: ARTERIAL BLOOD SPECIMEN Ordering Facility: [facility] Address: [address] [place] [address] Performed By: #### A LLBG #### [facility] CLIA [id number] [address] [place] [address] [place] CO2 adjusted to patient's actual temperature (Bld) [Partial pressure] Normal [facility] Comment on above: Order Comment: Speci men Type: ARTERIAL BLOOD SPECIMEN Ordering Facility: [facility] Address: [address] [place] [address] Performed By: #### A LLBG #### [facility] CLIA [id number] [address] [place] [address] [place] FIO2 100.0 % Normal [facility] Comment on above: Order Comment: Speci men Type: ARTERIAL BLOOD SPECIMEN [facility] Address: [address] [place] [address] Performed By: #### A LLBG #### [facility] CLIA [id number] [address] [place] [address] [place] Glucose [Mass/Vol] 187 mg/dL High 60-105 [facility] Comment on above: Order Comment: Speci men Type: ARTERIAL BLOOD SPECIMEN [facility] Address: [address] [place] [address] Performed By: #### A LLBG #### [facility] CLIA [id number] [address] [place] [address] [place] HCO3 (Bld) [Moles/Vol] 22 mmol/L Normal 22-26 [facility] Comment on above: Order Comment: Speci men Type: ARTERIAL BLOOD SPECIMEN [facility] Facility[facility] Address: [address] [place] [address] Performed By: #### A LLBG #### [facility] CLIA [id number] [address] [place] [address] [place] Hemoglobin (Bld) [Mass/Vol] 11.4 g/dL Low 11.5-15.5 [facility] Comment on above: Order Comment: Speci men Type: ARTERIAL BLOOD SPECIMEN Ordering Facility: [facility] Address: [address] [place] [address] Performed By: #### A LLBG #### [facility] CLIA [id number] [address] [place] [address] [place] INHALED TIDAL VOLUME (ML) 420 [facility] Comment on above: Order Comment: Speci men Type: ARTERIAL BLOOD SPECIMEN Ordering Facility: [facility] Address: [address] [place] [address] Performed By: #### A LLBG #### [facility] CLIA [id number] [address] [place] [address] OF [place] INVASIVE VENTILATOR MODE A/C PRVC or VC+ or APVcmv (PC-CMVa) [facility] Comment on above: Order Comment: Speci men Type: ARTERIAL BLOOD SPECIMEN Ordering Facility: [facility] Address: [address] [place] [address] Performed By: #### A LLBG #### [facility] CLIA [id number] [address] [place] [address] [place] Lactate [Moles/Vol] 1.6 mmol/L Normal 0.5-2.2 [facility] Comment on above: Order Comment: Speci men Type: ARTERIAL BLOOD SPECIMEN [facility] Facility[facility] Address: [address] [place] [address] Performed By: #### A LLBG #### [facility] CLIA [id number] [address] [place] [address] [place] Methemoglobin (Bld) [Mass fraction] 0.4 % Normal 0.0-1.5 [facility] Comment on above: Order Comment: Speci men Type: ARTERIAL BLOOD SPECIMEN Ordering [facility]: [facility] Address: [address] [place] [address] Performed By: #### A LLBG #### [facility] CLIA [id number] [address] [place] [address] [place] MINUTE VENTILATION 8 L/min Normal [facility] Comment on above: Order Comment: Speci men Type: ARTERIAL BLOOD SPECIMEN [facility] Facility[facility] Address: [address] [place] [address] Performed By: #### A LLBG #### [facility] CLIA [id number] [address] [place] [address] O2 THERAPY VENT=Ventilator Normal [facility] Comment on above: Order Comment: Speci men Type: ARTERIAL BLOOD SPECIMEN Order[facility] Facility: [facility] Address: [address] [place] [address] Performed By: #### A LLBG #### [facility] CLIA [id number] [address] [place] [address] [place] Oxygen (Bld) [Partial pressure] 92 mm Hg Normal 85-95 [facility] Comment on above: Order Comment: Speci men Type: ARTERIAL BLOOD SPECIMEN Order[facility] Facility: [facility] Address: [address] [place] [address] Performed By: #### A LLBG #### [facility] CLIA [id number] [address] [place] [address] [place] Oxygen adjusted to patient's actual temperature (Bld) [Partial pressure] [facility] Comment on above: Order Comment: Speci men Type: ARTERIAL BLOOD SPECIMEN Order[facility] Facility: [facility] Address: [address] [place] [address] Performed By: #### A LLBG #### [facility] CLIA [id number] [address] [place] [address] [place] Oxyhemoglobin (BldA) [Mass fraction] 96 % Normal 95-98 [facility] Comment on above: Order Comment: Speci men Type: ARTERIAL BLOOD SPECIMEN Ordering Facility: [facility] Address: [address] [place] [address] Performed By: #### A LLBG #### [facility] CLIA [id number] [address] [place] [address] [place] PEEP/CPAP 8 cmH2O Normal [facility] Comment on above: Order Comment: Speci men Type: ARTERIAL BLOOD SPECIMEN Ordering Facility: [facility] Address: [address] [place] [address] Performed By: #### A LLBG #### [facility] CLIA [id number] [address] [place] [address] [place] pH (Bld) 7.29 [pH] Low 7.35-7.45 [facility] Comment on above: Order Comment: Speci men Type: ARTERIAL BLOOD SPECIMEN Ordering Facility: [facility] Address: [address] [place] [address] Performed By: #### A LLBG #### [facility] CLIA [id number] [address] [place] [address] pH adjusted to patient's actual temperature (Bld) Normal [facility] Comment on above: Order Comment: Speci men Type: ARTERIAL BLOOD SPECIMEN Ordering Facility: [facility] Address: [address] [place] [address] Performed By: #### A LLBG #### [facility] CLIA [id number] [address] [place] [address] [place] PO2 / FIO2 RATIO 92 mmHg Low >300 [facility] Comment on above: Order Comment: Speci men Type: ARTERIAL BLOOD SPECIMEN Ordering Facility: [facility] Address: [address] [place] [address] Performed By: #### A LLBG #### [facility] CLIA [id number] [address] [place] [address] [place] Potassium [Moles/Vol] 3.5 mmol/L Normal 2.5-6.0 [facility] Comment on above: Order Comment: Speci men Type: ARTERIAL BLOOD SPECIMEN Ordering Facility: [facility] Address: [address] [place] [address] Performed By: #### A LLBG #### [facility] CLIA [id number] [address] [place] [address] [place] SET VENTILATOR RESPIRATORY RATE (BPM) 20 BPM Normal [facility] Comment on above: Order Comment: Speci men Type: ARTERIAL BLOOD SPECIMEN Ordering Facility: [facility] Address: [address] [place] [address] Performed By: #### A LLBG #### [facility] CLIA [id number] [address] [place] [address] [place] Sodium [Moles/Vol] 140 mmol/L Normal 136-144 [facility] Comment on above: Order Comment: Speci men Type: ARTERIAL BLOOD SPECIMEN Ordering Facility: [facility] Address: [address] [place] [address] Performed By: #### A LLBG #### [facility] CLIA [id number] [address] [place] [address] [place] Bacteria Bld Culton 03-16-20 Bacteria identified Cx Nom (Bld) CULTURE, BLOOD: No growth 5 days Normal [facility] Comment on above: Performed By: #### 2 4323-8, 3040-3, 25121-7, 2777-1, 2571-8 #### [facility] CLIA [id number] [address] [place] [address] [place] Bacteria identified Cx Nom (Bld) CULTURE, BLOOD: No growth 5 days Normal [facility] Comment on above: Performed By: #### 2 4323-8, 3040-3, 20241-6, 2777-1, 2571-8 #### [facility] CLIA [id number] [address] [place] [address] [place] Bacteria Spec Resp [...] AGNIESZKA STATUS REFERENCE RANGE Penicillin (oral) S <=0.05277 F Susceptible <=0.06 , Intermediate >.06 , Resistant >1 Penicillin Non-Meningitis S <=0.77487 F Susceptible <=2 , Intermediate >2 , Resistant >=8 Penicillin Meningitis S <=0.24067 F Susceptible <=0.06 , Resistant >.06 Ceftriaxone Meningitis S <=0.0625 F Susceptible <=0.5 , Intermediate >.5 , Resistant >=2 Ceftriaxone Non-Meningitis S <=0.0625 F Susceptible <=1 , Intermediate >1 , Resistant >2 Cefepime S <=0.0625 F Susceptible <=1 , Intermediate >1 , Resistant >2 Meropenem S <=0.0625 F Susceptible <=0.25 , Intermediate >.25 , Resistant >.5 Erythromycin S <=0.98215 F Susceptible <=0.25 , Intermediate >.25 , [...] , Intermediate >4 , Resistant >8 Abnormal [facility] Comment on above: Performed By: #### 3 4528-0, 49078-5 #### [facility] CLIA [id number] [address] [place] [address] [place] Basic Metabolic Profile (BMP )on 03-16-2025 BUN Normal 4-19 [facility] Comment on above: Result Comment: Canc elled via OM: Order cancelled - Patient discharged Performed By: #### L 500.2500, L100.0100 ####[facility] [id number] [place], [place], [address] BUN/CRE Normal 10-20 [facility] Comment on above: Result Comment: Canc elled via OM: Order cancelled - Patient discharged Performed By: #### L 500.2500, L100.0100 ####[facility] [address] [place], [address] Calcium Normal 7.6-11.0 [facility] Comment on above: Result Comment: Canc elled via OM: Order cancelled - Patient discharged Performed By: #### L 500.2500, L100.0100 ####[facility] [address] [place], [address] CL Normal 98-108 [facility] Comment on above: Result Comment: Canc elled via OM: Order cancelled - Patient discharged Performed By: #### L 500.2500, L100.0100 ####[facility] [address] [place], [address] CO2 Normal 21.0-32.0 [facility] Comment on above: Result Comment: Canc elled via OM: Order cancelled - Patient discharged Performed By: #### L 500.2500, L100.0100 ####[facility] [address] [place], [address] CREAT,SERUM Normal 0.70-1.20 [facility] Comment on above: Result Comment: Canc elled via OM: Order cancelled - Patient discharged Performed By: #### L 500.2500, L100.0100 ####[facility] [address] [place], [address] eGFR Normal >60 [facility] Comment on above: Result Comment: Canc elled via OM: Order cancelled - Patient discharged Performed By: #### L 500.2500, L100.0100 ####[facility] [address] [place], [address] GAP Normal 5-15 [facility] Comment on above: Result Comment: Canc elled via OM: Order cancelled - Patient discharged Performed By: #### L 500.2500, L100.0100 ####[facility] [address] [place], [address] GLU Normal 70-99 [facility] Comment on above: Result Comment: Canc elled via OM: Order cancelled - Patient discharged Performed By: #### L 500.2500, L100.0100 ####[facility] [address] [place], [address] Potassium Normal 3.3-5.1 [facility] Comment on above: Result Comment: Canc elled via OM: Order cancelled - Patient discharged Performed By: #### L 500.2500, L100.0100 ####[facility] [address] [place], [address] Basic Metabolic Profile (BMP) Normal 133-145 [facility] Comment on above: Result Comment: Canc elled via OM: Order cancelled - Patient discharged Performed By: #### L 500.2500, L100.0100 ####[facility] [address] [place], [address] CBC W/Diff, Automatedon 06-1 Absolute Neut Normal 2.0-7.7 [facility] Comment on above: Result Comment: Canc elled via OM: Order cancelled - Patient discharged Performed By: #### L 500.2500, L100.0100 ####[facility] [address] [place], [address] HCT Normal 37-47 [facility] Comment on above: Result Comment: Canc elled via OM: Order cancelled - Patient discharged Performed By: #### L 500.2500, L100.0100 ####[facility] [address] [place], [address] HGB Normal 12.0-15.0 [facility] Comment on above: Result Comment: Canc elled via OM: Order cancelled - Patient discharged Performed By: #### L 500.2500, L100.0100 ####[facility] [address] [place], [address] MCH Normal 27.0-32.0 [facility] Comment on above: Result Comment: Canc elled via OM: Order cancelled - Patient discharged Performed By: #### L 500.2500, L100.0100 ####[facility] [address] [place], [address] MCHC Normal 32-36 [facility] Comment on above: Result Comment: Canc elled via OM: Order cancelled - Patient discharged Performed By: #### L 500.2500, L100.0100 ####[facility] [address] [place], [address] MCV Normal 81-99 [facility] Comment on above: Result Comment: Canc elled via OM: Order cancelled - Patient discharged Performed By: #### L 500.2500, L100.0100 ####[facility] [address] [place], [address] NEUT% Normal 47-70 [facility] Comment on above: Result Comment: Canc elled via OM: Order cancelled - Patient discharged Performed By: #### L 500.2500, L100.0100 ####[facility] [address] [place], [address] PLT Normal 150-450 [facility] Comment on above: Result Comment: Canc elled via OM: Order cancelled - Patient discharged Performed By: #### L 500.2500, L100.0100 ####[facility] [address] [place], [address] RBC Normal 4.2-5.4 [facility] Comment on above: Result Comment: Canc elled via OM: Order cancelled - Patient discharged Performed By: #### L 500.2500, L100.0100 ####[facility] [address] [place], [address] RDW CV Normal 11.6-14.6 [facility] Comment on above: Result Comment: Canc elled via OM: Order cancelled - Patient discharged Performed By: #### L 500.2500, L100.0100 ####[facility] [address] [place], [address] RDW SD Normal 35.1-43.9 [facility] Comment on above: Result Comment: Canc elled via OM: Order cancelled - Patient discharged Performed By: #### L 500.2500, L100.0100 ####[facility] [address] [place], [address] WBC Normal 4.4-11.0 [facility] Comment on above: Result Comment: Canc elled via OM: Order cancelled - Patient discharged Performed By: #### L 500.2500, L100.0100 ####[facility] [address] [place], [address] CBC panel Auto (Bld)on 03-16 Erythrocyte distribution width (RBC) [Ratio] 14.6 % Normal 11.5-15.0 [facility] Comment on above: Order Comment: Speci men Type: BLOOD SPECIMEN Ordering Facility: [facility] Address: [address] [place] [address] Performed By: #### 5 8410-2 #### [facility] CLIA [id number] [address] [place] [address] [place] Hematocrit (Bld) [Volume fraction] 32.8 % Low 36.0-46.0 [facility] Comment on above: Order Comment: Speci men Type: BLOOD SPECIMEN Ordering Facility: [facility] Address: [address] [place] [address] Performed By: #### 5 8410-2 #### [facility] CLIA [id number] [address] [place] [address] [place] Hemoglobin (Bld) [Mass/Vol] 10.1 g/dL Low 11.5-15.5 [facility] Comment on above: Order Comment: Speci men Type: BLOOD SPECIMEN Ordering Facility: [facility] Address: [address] [place] [address] Performed By: #### 5 8410-2 #### [facility] CLIA [id number] [address] [place] [address] [place] MCH (RBC) [Entitic mass] 27.2 pg Normal 26.0-34.0 [facility] Comment on above: Order Comment: Speci men Type: BLOOD SPECIMEN Ordering Facility: [facility] Address: [address] [place] [address] Performed By: #### 5 8410-2 #### [facility] CLIA [id number] [address] [place] [address] [place] MCHC (RBC) [Mass/Vol] 30.8 g/dL Normal 30.5-36.0 [facility] Comment on above: Order Comment: Speci men Type: BLOOD SPECIMEN Ordering Facility: [facility] Address: [address] [place] [address] Performed By: #### 5 8410-2 #### [facility] CLIA [id number] [address] [place] [address] [place] MCV (RBC) [Entitic vol] 88.2 fL Normal 80.0-100.0 [facility] Comment on above: Order Comment: Speci men Type: BLOOD SPECIMEN Ordering Facility: [facility] Address: [address] [place] [address] Performed By: #### 5 8410-2 #### [facility] CLIA [id number] [address] [place] [address] [place] Nucleated RBC (Bld) [#/Vol] 10*3/uL Normal <0.01 [facility] Comment on above: Order Comment: Speci men Type: BLOOD SPECIMEN Ordering Facility: [facility] Address: [address] [place] [address] Performed By: #### 5 8410-2 #### [facility] CLIA [id number] [address] [place] [address] [place] Platelet mean volume (Bld) [Entitic vol] 10.0 fL Normal 9.0-12.7 [facility] Comment on above: Order Comment: Speci men Type: BLOOD SPECIMEN Ordering Facility: [facility] Address: [address] [place] [address] Performed By: #### 5 8410-2 #### [facility] CLIA [id number] [address] [place] [address] [place] Platelets (Bld) [#/Vol] 337 10*3/uL Normal 150-400 [facility] Comment on above: Order Comment: Speci men Type: BLOOD SPECIMEN Ordering Facility: [facility] Address: [address] [place] [address] Performed By: #### 5 8410-2 #### [facility] CLIA [id number] [address] [place] [address] [place] RBC (Bld) [#/Vol] 3.72 10*6/uL Low 3.90-5.20 [facility] Comment on above: Order Comment: Speci men Type: BLOOD SPECIMEN Ordering Facility: [facility] Address: [address] [place] [address] Performed By: #### 5 8410-2 #### [facility] CLIA [id number] [address] [place] [address] [place] WBC (Bld) [#/Vol] 27.49 10*3/uL High 3.70-11.00 [facility] Comment on above: Order Comment: Speci men Type: BLOOD SPECIMEN Ordering Facility: [facility] Address: [address], [place] [address] Performed By: #### 5 8410-2 #### [facility] CLIA [id number] [address] [place] [address] [place] Matteo 03-16-2025 CNPN Telephone (INTMWS) GRACIE BANUELOS ([id number]) 1965 F Date Time Provider Department 03/16/25 MISBAH ELKINS INTMWS During your visit today, we recorded the following information about you: Eva Martines RN 03/16/2025 1:22 PM Signed Patient's daughter calls and wanted provider aware that patient is currently at [facility] on a Ventilator. Daughter apologizes for forgetting [...] female [N39.3] (more content not included)... Normal [facility] CONSULT PROGon 03-16-2025 CONSULT PROG HNO ID: [id number] Author: DANIEL REYNA RPh Service: Pharmacy Author [...] contact pharmacy if there are questions. Daniel Renya, [facility] CONSULT PROG HNO ID: [id number] Author: JOSE GUADALUPE GUZMAN [facility] Service: Pharmacy Author Type: Pharmacist Type: Consult [...] Levels: No results found for: FELTON Guzman, [facility] CT ABD/PEL W IVCONon 025 CT ABD/PEL W IVCON * * *Final Report* * * DATE OF EXAM: Mar 16 2025 1:50AM [facility] 0530 - CT ABD/PEL W IVCON / [...] stent. * No other acute abdominopelvic process. Weathercaster: [facility] Transcribe Date/Time: Mar 16 2025 4:01A Dictated by : TRISH BAHENA MD This examination was interpreted and the report reviewed and electronically signed by: TRISH BAHENA MD on Mar 16 2025 4:21AM EST [id number] Normal [facility] CTA CHEST (NON GATED) W IVCO N PEon 03-16-2025 CTA CHEST (NON GATED) W IVCON PE * * *Final Report* * * DATE OF EXAM: Mar 16 2025 1:50AM [facility] 0564 - CTA CHEST (NON GATED) W [...] to resolution, underlying lung nodules/mass not excluded. Weathercaster: [facility] Transcribe Date/Time: Mar 16 2025 3:49A Dictated by : SUELLEN SÁNCHEZ MD This examination was interpreted and the report reviewed and electronically signed by: SUELLEN SÁNCHEZ MD on Mar 16 2025 4:00AM EST [id number] Normal [facility] Comprehensive metabolic 2000 panelon 03-16-2025 Albumin [Mass/Vol] 2.7 g/dL Low 3.2-5.0 [facility] Comment on above: Order Comment: Speci men Type: BLOOD SPECIMEN Ordering Facility: [facility] Address: [address] [place] [address] Performed By: #### 2 4323-8, 3040-3, 81747-8, 2777-1, 257-8 #### [facility] CLIA [id number] [address] [place] [address] [place] ALP [Catalytic activity/Vol] 143 U/L High 45-117 [facility] Comment on above: Order Comment: Speci men Type: BLOOD SPECIMEN Ordering Facility: [facility] Address: [address] [place] [address] Performed By: #### 2 4323-8, 3040-3, 89405-0, 2777-1, 257-8 #### [facility] CLIA [id number] [address] [place], [place] [address] [place] ALT [Catalytic activity/Vol] 17 U/L Normal 13-61 [facility] Comment on above: Order Comment: Speci men Type: BLOOD SPECIMEN Ordering Facility: [facility] Address: [address] [place] [address] Result Comment: Resu lts may be falsely depressed after the administration of Sulfasalazine and/or Sulfapyridine. Performed By: #### 2 4323-8, 3040-3, 04821-4, 277-1, 257-8 #### [facility] CLIA [id number] [address] [place], [place] [address] [place] [facility] Anion gap [Moles/Vol] 18 mmol/L High 5-16 [facility] Comment on above: Order Comment: Speci men Type: BLOOD SPECIMEN Ordering Facility: [facility] Address: [address] [place] [address] Performed By: #### 2 4323-8, 3040-3, 70643-6, 2777-1, 257-8 #### [facility] CLIA [id number] [address] [place], [place] [address] [place] AST [Catalytic activity/Vol] 13 U/L Normal 8-34 [facility] Comment on above: Order Comment: Speci men Type: BLOOD SPECIMEN Ordering Facility: [facility] Address: [address] [place] [address] Result Comment: Resu lts may be falsely depressed after the administration of Sulfasalazine and/or Sulfapyridine. Performed By: #### 2 4323-8, 3040-3, 20385-8, 2776-09, 2571-04 #### [facility] CLIA [id number] [address] [place] [address] [place] Bilirubin [Mass/Vol] 0.3 mg/dL Normal 0.2-1.0 [facility] Comment on above: Order Comment: Speci men Type: BLOOD SPECIMEN Ordering Facility: [facility] Address: [address] [place] [address] Performed By: #### 2 4323-8, 3040-3, 36830-7, 2776-09, 2571-04 #### [facility] CLIA [id number] [address] [place], [place] [address] [place] Calcium [Mass/Vol] 9.3 mg/dL Normal 8.5-10.5 [facility] Comment on above: Order Comment: Speci men Type: BLOOD SPECIMEN Ordering Facility: [facility] Address: [address] [place] [address] Performed By: #### 2 4323-8, 3040-3, 39371-3, 2776-09, 2571-04 #### [facility] CLIA [id number] [address] [place], [place] [address] [place] Chloride [Moles/Vol] 99 mmol/L Normal 98-107 [facility] Comment on above: Order Comment: Speci men Type: BLOOD SPECIMEN Ordering Facility: [facility] Address: [address] [place] [address] Performed By: #### 2 4323-8, 3040-3, 98969-9, 2776-09, 2571-04 #### [facility] CLIA [id number] [address] [place] [address] [place] CO2 [Moles/Vol] 23 mmol/L Normal 21-32 [facility] Comment on above: Order Comment: Speci men Type: BLOOD SPECIMEN Ordering Facility: [facility] Address: [address] [place] [address] Performed By: #### 2 4323-8, 3040-3, 49639-4, 2776-, 2571-04 #### [facility] CLIA [id number] [address] [place], [place] [address] [place] Creatinine [Mass/Vol] 0.93 mg/dL Normal 0.51-0.95 [facility] Comment on above: Order Comment: Reggie fajardo Type: BLOOD SPECIMEN Ordering Facility: [facility] Address: [address] [place] [address] Result Comment: Gretta ents receiving either N-Acetylcysteine (NAC) or Metamizole prior to venipuncture, may have falsely depressed results. Performed By: #### 2 4323-8, 3040-3, 69556-5, 2776-09, 2571-04 #### [facility] CLIA [id number] [address] [place] [address] [place] Creatinine and Glomerular filtration rate.predicted panel (S/P/Bld) 70 mL/min/1.73m??? Normal >=60 [facility] Comment on above: Order Comment: Reggie fajardo Type: BLOOD SPECIMEN Ordering Facility: [facility] Address: [address] [place] [address] Result Comment: Pavan mated Glomerular Filtration Rate [...] GFR. Performed By: #### 2 4323-8, 3040-3, 93063-0, 2776-, 2571-04 #### [facility] CLIA [id number] [address] [place], [place] [address] [place] Glucose [Mass/Vol] 175 mg/dL High 70-100 [facility] Comment on above: Order Comment: Reggie fajardo Type: BLOOD SPECIMEN Ordering Facility: [facility] Address: [address] [place] [address] Result Comment: The [place] [employer] (ADA) provides guidance for cutoff [...] Standards of Medical Care in Diabetes 2016, [place] [employer]. Diabetes Care. 2016.39(Suppl 1). Results may be falsely elevated after the administration of Sulfapyridine. Results may be falsely depressed after the administration of Sulfasalazine. Performed By: #### 2 4323-8, 3040-3, 81811-6, 2777-1, 2570-8 #### [facility] CLIA [id number] [address] [place] [address] [place] Potassium [Moles/Vol] 3.9 mmol/L Normal 3.5-5.1 [facility] Comment on above: Order Comment: Reggie fajardo Type: BLOOD SPECIMEN Ordering Facility: [facility] Address: [address] [place] [address] Performed By: #### 2 4323-8, 3040-3, 15222-3, 2777-1, 2570-8 #### [facility] CLIA [id number] [address] [place] [id number] [place] Protein [Mass/Vol] 6.6 g/dL Normal 6.0-8.5 [facility] Comment on above: Order Comment: Reggie fajardo Type: BLOOD SPECIMEN Ordering Facility: [facility] Address: [address] [place] [address] Performed By: #### 2 4323-8, 3040-3, 67362-2, 2777-1, 2570-8 #### [facility] CLIA [id number] [address] [place], [place] [address] [place] Sodium [Moles/Vol] 140 mmol/L Normal 136-145 [facility] Comment on above: Order Comment: Speci men Type: BLOOD SPECIMEN Ordering Facility: [facility] Address: [address] [place] [address] Performed By: #### 2 4323-8, 3040-3, 27638-8, 2777-1, 2571-8 #### [facility] CLIA [id number] [address] [place], [place] [address] [place] Urea nitrogen [Mass/Vol] 12 mg/dL Normal 7- [facility] Comment on above: Order Comment: Speci men Type: BLOOD SPECIMEN Ordering Facility: [facility] Address: [address] [place] [address] Performed By: #### 2 4323-8, 3040-3, 04497-5, 2777-1, 2571-8 #### [facility] CLIA [id number] [address] [place] [address] [place] Gas and Carbon monoxide pane l (BldV)on 03-16-2025 Base excess Calc (BldV) [Moles/Vol] 1 mmol/L Normal 0-2 [facility] Comment on above: Order Comment: Speci men Type: BLOOD SPECIMEN Ordering Facility: [facility] Address: [address] [place] [address] Performed By: #### 5 8410-2 #### [facility] CLIA [id number] [address] [place], [place] [address] [place] Body temperature 100.94 [degF] Normal [facility] Comment on above: Order Comment: Speci men Type: BLOOD SPECIMEN Ordering Facility: [facility] Address: [address] [place] [address] Performed By: #### 5 8410-2 #### [facility] CLIA [id number] [address] [place], [place] [address] [place] Calcium.ionized (Bld) [Mass/Vol] 1.14 mmol/L Normal 1.08-1.30 [facility] Comment on above: Order Comment: Speci men Type: BLOOD SPECIMEN Ordering Facility: [facility] Address: [address] [place] [address] Performed By: #### 5 8410-2 #### [facility] CLIA [id number] [address] [place], [place] [address] [place] Carboxyhemoglobin (BldV) [Mass fraction] 1.0 % Normal 0.0-2.0 [facility] Comment on above: Order Comment: Speci men Type: BLOOD SPECIMEN Ordering Facility: [facility] Address: [address] [place] [address] Result Comment: Carb oxyhemoglobin Reference Range for Smokers: 2.0-8.0% Performed By: #### 5 8410-2 #### [facility] CLIA [id number] [address] [place] [address] [place] CO2 (BldV) [Partial pressure] 47 mm[Hg] Normal 42-55 [facility] Comment on above: Order Comment: Speci men Type: BLOOD SPECIMEN Ordering Facility: [facility] Address: [address] [place] [address] Performed By: #### 5 8410-2 #### [facility] CLIA [id number] [address] [place] [address] [place] CO2 adjusted to patient's actual temperature (BldV) [Partial pressure] Normal [facility] Comment on above: Order Comment: Speci men Type: BLOOD SPECIMEN Ordering Facility: [facility] Address: [address] [place] [address] Performed By: #### 5 8410-2 #### [facility] CLIA [id number] [address] [place], [place] [address] [place] Glucose [Mass/Vol] 190 mg/dL High 60-105 [facility] Comment on above: Order Comment: Speci men Type: BLOOD SPECIMEN Ordering Facility: [facility] Address: [address] [place] [address] Performed By: #### 5 8410-2 #### [facility] CLIA [id number] [address] [place], [place] [address] [place] HCO3 (Bld) [Moles/Vol] 26 mmol/L Normal 24-28 [facility] Comment on above: Order Comment: Speci men Type: BLOOD SPECIMEN Ordering Facility: [facility] Address: [address] [place] [address] Performed By: #### 5 8410-2 #### [facility] CLIA [id number] [address] [place] [address] [place] Hemoglobin (Bld) [Mass/Vol] 11.5 g/dL Normal 11.5-15.5 [facility] Comment on above: Order Comment: Speci men Type: BLOOD SPECIMEN Ordering Facility: [facility] Address: [address] [place] [address] Performed By: #### 5 8410-2 #### [facility] CLIA [id number] [address] [place] [address] [place] Lactate [Moles/Vol] 2.5 mmol/L High 0.5-2.2 [facility] Comment on above: Order Comment: Speci men Type: BLOOD SPECIMEN Ordering Facility: [facility] Address: [address] [place] [address] Performed By: #### 5 8410-2 #### [facility] CLIA [id number] [address] [place] [address] [place] Methemoglobin (Bld) [Mass fraction] 0.1 % Normal 0.0-1.5 [facility] Comment on above: Order Comment: Speci men Type: BLOOD SPECIMEN Ordering Facility: [facility] Address: [address] [place] [address] Performed By: #### 5 8410-2 #### [facility] CLIA [id number] [address] [place] [address] [place] O2 THERAPY VENT=Ventilator Normal [facility] [facility] Comment on above: Order Comment: Speci men Type: BLOOD SPECIMEN Ordering Facility: [facility] Address: [address] [id number] Performed By: #### 5 8410-2 #### [facility] CLIA [id number] [address] [place], [place] [id number] [place] Oxygen (BldV) [Partial pressure] 33 mm[Hg] Low 35-45 [facility] Comment on above: Order Comment: Speci men Type: BLOOD SPECIMEN Ordering Facility: [facility] Address: [address] [place] [address] Performed By: #### 5 8410-2 #### [facility] CLIA [id number] [address] [place] [address] [place] Oxygen adjusted to patient's actual temperature (BldV) [Partial pressure] Normal [facility] Comment on above: Order Comment: Speci men Type: BLOOD SPECIMEN Ordering Facility: [facility] Address: [address] [place] [address] Performed By: #### 5 8410-2 #### [facility] CLIA [id number] [address] [place] [address] [place] Oxyhemoglobin (BldV) [Mass fraction] 60 % Normal 4-98 [facility] Comment on above: Order Comment: Speci men Type: BLOOD SPECIMEN Ordering Facility: [facility] Address: [address] [place] [address] Performed By: #### 5 8410-2 #### [facility] CLIA [id number] [address] [place] [address] [place] pH (BldV) 7.37 [pH] Normal 7.32-7.42 [facility] Comment on above: Order Comment: Speci men Type: BLOOD SPECIMEN Ordering Facility: [facility] Address: [address] [place] [address] Performed By: #### 5 8410-2 #### [facility] CLIA [id number] [address] [place] [address] [place] pH adjusted to patient's actual temperature (BldV) Normal [facility] Comment on above: Order Comment: Speci men Type: BLOOD SPECIMEN Ordering Facility: [facility] Address: [address] [place] [address] Performed By: #### 5 8410-2 #### [facility] CLIA [id number] [address] [place], [place] [address] [place] Potassium [Moles/Vol] 3.5 mmol/L Normal 2.5-6.0 [facility] Comment on above: Order Comment: Speci men Type: BLOOD SPECIMEN Ordering Facility: [facility] Address: [address] [place] [address] Performed By: #### 5 8410-2 #### [facility] IA [id number] [address] [place] [address] [place] Sodium [Moles/Vol] 139 mmol/L Normal 136-144 [facility] Comment on above: Order Comment: Speci men Type: BLOOD SPECIMEN Ordering Facility: [facility] Address: [address] [place] [address] Performed By: #### 5 8410-2 #### [facility] IA [id number] [address] [place], [place] [address] [place] Gram Stainon 03-16-2025 GS Gram Stain 3+ Gram positive diplococci 2+ White Blood Cells No Epithelial cells Normal [facility] Comment on above: Performed By: #### M 100.2000, M100.2400 ####[facility] [address] [facility] [place], [address] Legionella Ag Ur Qlon 2024 Legionella sp Ag Ql (U) Negative Normal Negative [facility] Comment on above: Order Comment: Speci men Type: ARTERIAL BLOOD SPECIMEN Ordering Facility: [facility] Address: [address] [place], [place] [address] Performed By: #### A LLBG #### [facility] CLIA [id number] [address] [place], [place] [address] [place] Lipase SerPl-cCncon 03-16-20 25 Lipase [Catalytic activity/Vol] 51 U/L Normal 12-60 [facility] Comment on above: Order Comment: Specmiya fajardo Type: BLOOD SPECIMEN Ordering Facility: [facility] Address: [facility] [address] [id number] Performed By: #### 2 4323-8, 3040-3, 84454-2, 2777-1, 2571-8 #### [facility] CLIA [id number] [address] [place] [address] Magnesium SerPl-mCncon 03-16 Magnesium [Mass/Vol] 1.1 mg/dL Low 1.6-2.6 [facility] Comment on above: Order Comment: Specmiya fajardo Type: BLOOD SPECIMEN Ordering Facility: [facility] Address: [address] [place] [address] Performed By: #### 2 4323-8, 3040-3, 90937-1, 2777-1, 2571-8 #### [facility] CLIA [id number] [address] [place], [place] [address] [facility] NUTRITIONon 03-16-2025 NUTRITION HNO ID: [id number] Author: GABE MILAN RD Service: Nutrition Therapy [...] Stage 3 severe COPD by GOLD classification ([facility]) 2018 Tobacco use greater than 30 years Unspecified hemorrhoids without mention of complication Urine, incontinence, stress female 11/24/2014 Intake History: Nutrition Intake Prior to Admission: Unable to determine Current Nutrition Intake: NPO Current Intake Over time: (1 day LOS) Dosing Weight: 60.8 kg (134 lb) Dosing Weight Type: Current weight Estimated kilocalorie needs: 7825-8770 Calorie Calculation Method: 25-30 kcals/kg Estimated protein needs (grams): 73-92 Grams protein determined by: 1.2 - 1.5 g/kg Diet Orders (From admission, onward) Start Ordered 03/15/25 2315 DIET NPO START NOW 03/15/25 2301 Anthropometrics: Height: 165.1 cm (5' 5) Weight: [...] March 16, 2025 TIME: 3:44 PM Normal [facility] PT panel Coag (PPP)on 2024 INR Coag (PPP) [Relative time] 1.1 {INR} Normal 0.9-1.3 [facility] Comment on above: Order Comment: Speci men Type: BLOOD SPECIMEN Ordering Facility: [facility] Address: [address] [place] [address] Result Comment: Zandra min K Antagonist (VKA) Therapeutic Range: INR 2 to 3 (Target INR of 2.5) Note: For patients treated with VKA drugs, such as warfarin, the [place] [employer] 2012 Guideline recommends [...] to 3.5 (target INR of 3). Pascual GH, et al. Chest 2012, 141:7S-47S Alessandro RA, et al. [facility] 2017, 70: 252-289 Performed By: #### 3 4528-0, 21179-6 #### [facility] CLIA [id number] [address] [place], [place] [address] [place] PT Coag (PPP) [Time] 12.1 s Normal 9.7-13.0 [facility] Comment on above: Order Comment: Reggie fajardo Type: BLOOD SPECIMEN Ordering Facility: [facility] Address: [address] [place] [address] Performed By: #### 3 4528-0, 82004-5 #### [facility] CLIA [id number] [address] [place], [place] [address] [place] Phosphate SerPl-ncon 03-16 Phosphate [Mass/Vol] 2.9 mg/dL Normal 2.5-4.9 [facility] Comment on above: Order Comment: Reggie fajardo Type: ARTERIAL BLOOD SPECIMEN Ordering Facility: [facility] Address: [address] [place] [address] Result Comment: Elev ated m-protein (paraprotein) levels in the serum may be exhibited in patients with monoclonal gammopathies, causing falsely elevated inorganic phosphorus results. Performed By: #### A LLBG #### [facility] CLIA [id number] [address] [place] [address] [place] Procalcitonin SerPl-mCncon 0 03-16-2025 Procalcitonin [Mass/Vol] 0.68 ng/mL High 0.00-0.50 [facility] Comment on above: Order Comment: Reggie fajardo Type: ARTERIAL BLOOD SPECIMEN Ordering Facility: [facility] Address: [address] [place] [address] Result Comment: PCT Concentration Interpretation PCT <=0.1 [...] shock. Performed By: #### A LLBG #### [facility] CLIA [id number] [address] [place] [address] [place] SEPSIS LACTATE W/ REFLEX (IN ITIAL)on 03-16-2025 Lactate [Moles/Vol] 1.3 mmol/L Normal 0.4-2.0 [facility] Comment on above: Order Comment: Speci men Type: BLOOD SPECIMEN Ordering Facility: [facility] Address: [address] [place] [address] Performed By: #### S LACTR #### [facility] CLIA [id number] [address] [place] [address] [place] STAPHYLOCOCCUS AUREUS AND MR SA SCREEN, PCR, NASALon 03-16-2025 S. aureus and MRSA panel KANDY+probe (Nose) Methicillin-SUSCEPTIBLE Staphylococcus aureus Detected Abnormal Not Detected [facility] Comment on above: Order Comment: Speci men Type: BLOOD SPECIMEN Ordering Facility: [facility] Address: [address] [place] [address] Performed By: #### 5 8410-2 #### [facility] CLIA [id number] [address] [place] [address] [place] STREPTOCOCCUS PNEUMONIAE ANT IGEN URINEon 03-16-2025 STREPTOCOCCUS PNEUMONIAE ANTIGEN URINE STREP PNEUMO AG RESULT: Negative for Streptococcus pneumoniae antigen. Presumptive negative for pneumococcal pneumonia, suggesting no current or recent pneumococcal infection. Infection due to S.pneumoniae cannot be ruled out since the antigen present in the sample may be below the detection limit of the test. Normal [facility] Comment on above: Performed By: #### A LLBG #### [facility] CLIA [id number] [address] [place] [address] [place] Trigl SerPl-mCncon 06-19-202 5 Triglyceride [Mass/Vol] 159 mg/dL High 30-149 M [facility] Comment on above: Order Comment: Specmiya men Type: ARTERIAL BLOOD SPECIMEN Ordering Facility: [facility] Address: [address] [place] [address] Result Comment: <150 mg/dL, Normal 150-199 mg/dL, Borderline high 200-499 mg/dL, High >499 mg/dL, Very high Reference: 1. National Cholesterol Education Program ATP III Guideline At-A-Glance Quick Desk Reference: National Heart, Lung, and Blood Otter. National Institutes of Health. 2001: NIH Publication No. 01-3305. Patients receiving either N-Acetylcysteine (NAC) or Metamizole prior to venipuncture, may have falsely depressed results. Performed By: #### A LLBG #### [facility] CLIA [id number] [address] [place] [address] [place] Triglyceride [Mass/Vol]on FASTING TIME Not none Normal [facility] Comment on above: Order Comment: Reggie tana Type: ARTERIAL BLOOD SPECIMEN Ordering Facility: [facility] Address: [address] [place] [address] Performed By: #### A LLBG #### [facility] CLIA [id number] [address] [place] [address] Urinalysis complete panel (U )on 03-16-2025 Bacteria LM.HPF (Urine sed) [#/Area] Rare Abnormal None Seen [facility] Comment on above: Order Comment: Speci men Type: ARTERIAL BLOOD SPECIMEN Ordering Facility: [facility] Address: [address] [place] [address] Performed By: #### A LLBG #### [facility] CLIA [id number] [address] [place] [address] Bilirubin Ql (U) Negative Normal Negative [facility] Comment on above: Order Comment: Kettyi men Type: ARTERIAL BLOOD SPECIMEN Ordering Facility: [facility] Address: [address] [place] [address] Performed By: #### A LLBG #### [facility] CLIA [id number] [address] [place] [address] [place] Clarity (Unsp spec) Clear Normal Clear [facility] Comment on above: Order Comment: Speci men Type: ARTERIAL BLOOD SPECIMEN Ordering Facility: [facility] Address: [address] [place] [address] Performed By: #### A LLBG #### [facility] CLIA [id number] [address] [place] [address] [place] Color (U) Colorless Normal Yellow [facility] Comment on above: Order Comment: Speci men Type: ARTERIAL BLOOD SPECIMEN Ordering Facility: [facility] Address: [address] [place] [address] Performed By: #### A LLBG #### [facility] CLIA [id number] [address] [place] [address] Epithelial cells LM.HPF (Urine sed) [#/Area] None Seen Normal [facility] Comment on above: Order Comment: Speci men Type: ARTERIAL BLOOD SPECIMEN Ordering Facility: [facility] Address: [address] [place] [address] Performed By: #### A LLBG #### [facility] CLIA [id number] [address] [place] [address] Glucose Test strip (U) [Mass/Vol] 1+ Abnormal Negative [facility] Comment on above: Order Comment: Speci men Type: ARTERIAL BLOOD SPECIMEN Ordering Facility: [facility] Address: [address] [place] [address] Performed By: #### A LLBG #### [facility] CLIA [id number] [address] [place] [address] [place] Hemoglobin Ql (U) 1+ Abnormal Negative [facility] Comment on above: Order Comment: Speci men Type: ARTERIAL BLOOD SPECIMEN Ordering Facility: [facility] Address: [address] [place] [address] Performed By: #### A LLBG #### [facility] CLIA [id number] [address] [place] [address] [place] Ketones Ql (U) 1+ Abnormal Negative [facility] Comment on above: Order Comment: Speci men Type: ARTERIAL BLOOD SPECIMEN Ordering Facility: [facility] Address: [address] [place] [address] Performed By: #### A LLBG #### [facility] CLIA [id number] [address] [place] [address] [place] Leukocyte esterase Test strip Ql (U) Negative Normal Negative [facility] Comment on above: Order Comment: Speci men Type: ARTERIAL BLOOD SPECIMEN Ordering Facility: [facility] Address: [address] [place] [address] Performed By: #### A LLBG #### [facility] CLIA [id number] [address] [place] [address] Nitrite Ql (U) Negative Normal Negative [facility] Comment on above: Order Comment: Speci men Type: ARTERIAL BLOOD SPECIMEN Ordering Facility: [facility] Address: [address] [place] [address] Performed By: #### A LLBG #### [facility] CLIA [id number] [address] [place] [address] [place] pH (U) 6.0 [pH] Normal 5.0-8.0 [facility] Comment on above: Order Comment: Speci men Type: ARTERIAL BLOOD SPECIMEN Ordering Facility: [facility] Address: [address] [place] [address] Performed By: #### A LLBG #### [facility] CLIA [id number] [address] [place] [address] [place] Protein (U) [Mass/Vol] Negative Normal Negative [facility] Comment on above: Order Comment: Speci men Type: ARTERIAL BLOOD SPECIMEN Ordering Facility: [facility] Address: [address] [place] [address] Performed By: #### A LLBG #### [facility] CLIA [id number] [address] [place] [address] [place] RBC LM.HPF (Urine sed) [#/Area] 0-3 /HPF Normal 0-3 /HPF [facility] Comment on above: Order Comment: Speci men Type: ARTERIAL BLOOD SPECIMEN Ordering Facility: [facility] Address: [address] [place] [address] Performed By: #### A LLBG #### [facility] CLIA [id number] [address] [place] [address] Specific gravity (U) [Rel density] 1.026 Normal 1.005-1.030 [facility] Comment on above: Order Comment: Speci men Type: ARTERIAL BLOOD SPECIMEN Ordering Facility: [facility] Address: [address] [place] [address] Performed By: #### A LLBG #### [facility] CLIA [id number] [address] [place] [address] [place] Urobilinogen Ql (U) Negative Normal Negative [facility] Comment on above: Order Comment: Speci men Type: ARTERIAL BLOOD SPECIMEN Ordering Facility: [facility] Address: [address] [place] [address] Performed By: #### A LLBG #### [facility] CLIA [id number] [address] [place] [address] [place] WBC LM.HPF (Urine sed) [#/Area] 0-5 /HPF Normal 0-5 /HPF [facility] Comment on above: Order Comment: Speci men Type: ARTERIAL BLOOD SPECIMEN Ordering Facility: [facility] Address: [address] [place] [address] Performed By: #### A LLBG #### [facility] CLIA [id number] [address] [place] [address] [place] XR CHEST 1V FRONTAL [...] change in the appearance of the chest. Weathercaster: BABATUNDE Transcribe Date/Time: Mar 16 2025 2:26P Dictated by : JOSE GUADALUPE MOROCHO MD This examination was interpreted and the report reviewed and electronically signed by: JOSE GUADALUPE MOROCHO MD on Mar 16 2025 2:30PM EST [id number] Normal [facility] aPTT PPPon 03-16-2025 aPTT Coag (PPP) [Time] 26.3 s Normal 23.0-32.4 [facility] Comment on above: Order Comment: Speci men Type: BLOOD SPECIMEN Ordering Facility: [facility] Address: [address] [place] [address] Performed By: #### 3 4528-0, 18161-2 #### [facility] CLIA [id number] [address] [place] [address] [place] ALLIED HEALTHon 03-15-2025 ALLIED HEALTH HNO ID: [id number] Author: SYD CHOUDHARY RT(R) Service: ? Author Type: Facility Administrator Type: Allied Health Filed: 03/15/2025 23:51 Note [...] PATIENT PRESENTS WITH AN IMPLANTABLE OR ATTACHED EXOTIC DANCER: No RADIOLOGY DEPARTMENT: General X-ray: Exam(s) Completed: Chest X-Ray Abdomen X-Ray: Abdomen PERIPHERAL IV DATA: Not applicable SIGNED BY: Syd Choudhary RT(R) March 15, 2025 11:51 PM [facility] Absolute lymphocyte countOrd ered By: Sudhir Izquierdo on 03-15-2025 Lymphocytes Auto (Unsp spec) [#/Vol] 1.20 10*3/uL 0.83-4.51 [facility] Anion gap in Serum or Plasma Ordered By: Sudhir Izquierdo on 03-15-2025 Anion gap [Moles/Vol] 14 mmol/L 5-15 [facility] Assessment of wrist artery p atency prior to arterial punctureOrdered By: Sudhir Izquierdo on 03-15-2025 Arterial patency Wrist artery --pre arterial puncture Positive [facility] Automated lymphocyte count a s percentage of total leukocytesOrdered By: Sudhir Izquierdo on 03-15-2025 Lymphocytes/100 WBC Auto (Unsp spec) 5.8 % Low 19-41 [facility] BUN/creatinine ratioOrdered By: Sudhirsalvatore Izquierdo on 03-15-2025 Urea nitrogen/Creatinine [Mass ratio] 15.6 mg/mg 10-20 [facility] Basophil percentageOrdered B y: Sudhir Felecia on 03-15-2025 Basophils/100 WBC (Bld) 0.4 % 0-1 [facility] Bilirubin, totalOrdered By: Sudhir Izquierdo on 03-15-2025 Bilirubin [Mass/Vol] 0.24 mg/dL 0.00-1.30 [facility] SERGEI TEST Positive Normal [facility] Comment on above: Performed By: #### L 9000.0800 ####[facility] [address] [place], [address] Base excess Calc (Bld) [Moles/Vol] 0 mmol/L Normal -2 to +2 [facility] Comment on above: Performed By: #### L 9000.0800 ####[facility] [address] [place], [address] Blood Gas Type ART Normal [facility] Comment on above: Performed By: #### L 9000.0800 ####[facility] [address] [place], [address] CO2 [Moles/Vol] 29 mmol/L Normal [facility] Comment on above: Performed By: #### L 9000.0800 ####[facility] [address] [place], [address] FI02 90.0 Normal [facility] Comment on above: Performed By: #### L 9000.0800 ####[facility] [address] [place], [address] HCO3 (Bld) [Moles/Vol] 26.8 mmol/L High 22-26 [facility] Comment on above: Performed By: #### L 9000.0800 ####[facility] [address] [place], [address] Mode AC Normal [facility] Comment on above: Performed By: #### L 9000.0800 ####[facility] [address] [place], [address] O2 Delivery Dev ET Tube Normal [facility] Comment on above: Performed By: #### L 9000.0800 ####[facility] [address] [place], [address] pCO2 59.5 mmHg High 35-45 [facility] Comment on above: Performed By: #### L 9000.0800 ####[facility] [address] [place], [address] PEEP 12 Normal [facility] Comment on above: Performed By: #### L 9000.0800 ####[facility] [address] [place], [address] pH (Bld) 7.26 [pH] Low 7.35-7.45 [facility] Comment on above: Performed By: #### L 9000.0800 ####[facility] [address] [place], [address] PO2 75 mmHG Normal 75-100 [facility] Comment on above: Performed By: #### L 9000.0800 ####[facility] [address] [place], [address] RR 16 Normal [facility] Comment on above: Performed By: #### L 9000.0800 ####[facility] [address] [place], [address] SITE R Radial Normal [facility] Comment on above: Performed By: #### L 9000.0800 ####[facility] [address] [place], [address] SO2 92 Low 95-99 [facility] Comment on above: Performed By: #### L 9000.0800 ####[facility] [address] [place], [address] Vt 450.0 mL Normal [facility] Comment on above: Performed By: #### L 9000.0800 ####[facility] [address] [place], [address] Base excess Calc (Bld) [Moles/Vol] 1 mmol/L Normal -2 to +2 [facility] Comment on above: Performed By: #### L 9000.0800 ####[facility] [address] [place], [address] Blood Gas Type ART Normal [facility] Comment on above: Performed By: #### L 9000.0800 ####[facility] [address] [place], [address] CO2 [Moles/Vol] 32 mmol/L Normal [facility] Comment on above: Performed By: #### L 9000.0800 ####[facility] [address] [place], [address] FI02 100.0 Normal [facility] Comment on above: Performed By: #### L 9000.0800 ####[facility] [address] [place], [address] HCO3 (Bld) [Moles/Vol] 29.3 mmol/L High 22-26 [facility] Comment on above: Performed By: #### L 9000.0800 ####[facility] [address] [place], [address] Mode AC Normal [facility] Comment on above: Performed By: #### L 9000.0800 ####[facility] [address] [place], [address] O2 Delivery Dev Adult Vent Normal [facility] Comment on above: Performed By: #### L 9000.0800 ####[facility] [address] [place], [address] pCO2 77.2 mmHg Invalid Interpretation Code 35-45 [facility] Comment on above: Performed By: #### L 9000.0800 ####[facility] [address] [place], [address] PEEP 12 Normal [facility] Comment on above: Performed By: #### L 9000.0800 ####[facility] [address] [place], [address] pH (Bld) 7.19 [pH] Invalid Interpretation Code 7.35-7.45 [facility] Comment on above: Performed By: #### L 9000.0800 ####[facility] [address] [place], [address] PO2 49 mmHG Low 75-100 [facility] Comment on above: Performed By: #### L 9000.0800 ####[facility] [address] [place], [address] Read Back By Yes [facility] Comment on above: Performed By: #### L 9000.0800 ####[facility] [facility] [address] [place], [address] Results To [facility] Comment on above: Performed By: #### L 9000.0800 ####[facility] [address] [place], [address] RR 16 [facility] Comment on above: Performed By: #### L 9000.0800 ####[facility] [address] [place], [address] SITE R Brach [facility] Comment on above: Performed By: #### L 9000.0800 ####[facility] [address] [place], [address] SO2 72 Low 95-99 [facility] Comment on above: Performed By: #### L 8999.0800 ####[facility] [address] [place], [address] Time Given 17:53:45 Normal [facility] Comment on above: Performed By: #### L 8999.0800 ####[facility] [address] [place], [address] Vt 400.0 mL Normal [facility] Comment on above: Performed By: #### L 8999.0800 ####[facility] [address] [place], [address] Base excess Calc (Bld) [Moles/Vol] -1 mmol/L Normal -2 to +2 [facility] Comment on above: Performed By: #### L 8999.0800 ####[facility] [address] [place], [address] Blood Gas Type ART Normal [facility] Comment on above: Performed By: #### L 8999.0800 ####[facility] [address] [place], [address] CO2 [Moles/Vol] 31 mmol/L Normal [facility] Comment on above: Performed By: #### L 8999.0800 ####[facility] [address] [place], [address] FI02 100.0 Normal [facility] Comment on above: Performed By: #### L 8999.0800 ####[facility] [address] [place], [address] HCO3 (Bld) [Moles/Vol] 28.5 mmol/L High 22-26 [facility] Comment on above: Performed By: #### L 8999.0800 ####[facility] [address] [place], [address] Mode Not entered Normal [facility] Comment on above: Performed By: #### L 9000.0800 ####[facility] [address] [place], [address] O2 Delivery Dev BiPAP Normal [facility] Comment on above: Performed By: #### L 9000.0800 ####[facility] [address] [place], [address] pCO2 83.5 mmHg Invalid Interpretation Code 35-45 [facility] Comment on above: Performed By: #### L 9000.0800 ####[facility] [address] [place], [address] PEEP 10 Normal [facility] Comment on above: Performed By: #### L 9000.0800 ####[facility] [address] [place], [address] pH (Bld) 7.14 [pH] Invalid Interpretation Code 7.35-7.45 [facility] Comment on above: Performed By: #### L 9000.0800 ####[facility] [address] [place], [address] PO2 74 mmHG Low 75-100 [facility] Comment on above: Performed By: #### L 9000.0800 ####[facility] [address] [place], [address] Read Back By Yes [facility] Comment on above: Performed By: #### L 9000.0800 ####[facility] [address] [place], [address] Results To BROWN [facility] Comment on above: Performed By: #### L 9000.0800 ####[facility] [address] [place], [address] RR 16 [facility] Comment on above: Performed By: #### L 9000.0800 ####[facility] [address] [place], [address] SITE R Brach [facility] Comment on above: Performed By: #### L 9000.0800 ####[facility] [address] [place], [address] SO2 88 Low 95-99 [facility] Comment on above: Performed By: #### L 9000.0800 ####[facility] [address] [place], [address] Time Given 15:53:31 [facility] Comment on above: Performed By: #### L 9000.0800 ####[facility] [address] [place], [address] Vt 450.0 mL [facility] Comment on above: Performed By: #### L 9000.0800 ####[facility] [address] [place], [address] Base excess Calc (Bld) [Moles/Vol] 0 mmol/L Normal -2 to +2 [facility] Comment on above: Performed By: #### L 9000.0800 ####[facility] [address] [place], [address] Blood Gas Type ART [facility] Comment on above: Performed By: #### L 9000.0800 ####[facility] [address] [place], [address] CO2 [Moles/Vol] 31 mmol/L [facility] Comment on above: Performed By: #### L 9000.0800 ####[facility] [address] [place], [address] FI02 100.0 [facility] Comment on above: Performed By: #### L 9000.0800 ####[facility] [address] [place], [address] HCO3 (Bld) [Moles/Vol] 28.9 mmol/L High 22-26 [facility] Comment on above: Performed By: #### L 9000.0800 ####[facility] [address] [place], [address] Mode BiLevel Normal [facility] Comment on above: Performed By: #### L 9000.0800 ####[facility] [address] [place], [address] O2 Delivery Dev BiPAP Normal [facility] Comment on above: Performed By: #### L 9000.0800 ####[facility] [address] [place], [address] pCO2 79.1 mmHg Invalid Interpretation Code 35-45 [facility] Comment on above: Performed By: #### L 9000.0800 ####[facility] [address] [place], [address] PEEP 10 Normal [facility] Comment on above: Performed By: #### L 9000.0800 ####[facility] [address] [place], [address] pH (Bld) 7.17 [pH] Invalid Interpretation Code 7.35-7.45 [facility] Comment on above: Performed By: #### L 9000.0800 ####[facility] [address] [place], [address] PO2 81 mmHG Normal 75-100 [facility] Comment on above: Performed By: #### L 9000.0800 ####[facility] [address] [place], [address] Read Back By Yes Normal [facility] Comment on above: Performed By: #### L 0.0800 ####[facility] [address] [place], [address] Results To BROWN Normal [facility] Comment on above: Performed By: #### L 8999.0800 ####[facility] [address] [place], [address] RR 16 Normal [facility] Comment on above: Performed By: #### L 0.0800 ####[facility] [address] [place], [address] SITE R Brach Normal [facility] Comment on above: Performed By: #### L 8999.0800 ####[facility] [address] [place], [address] SO2 92 Low 95-99 [facility] Comment on above: Performed By: #### L 8999.0800 ####[facility] [address] [place], [address] Time Given 10:48:00 [facility] Comment on above: Performed By: #### L 8999.0800 ####[facility] [address] [place], [address] Vt 450.0 mL Normal [facility] Comment on above: Performed By: #### L 0.0800 ####[facility] [address] [place], [address] SERGEI TEST Positive Normal [facility] Comment on above: Performed By: #### L 0.0800 ####[facility] [address] [place], [address] Base excess Calc (Bld) [Moles/Vol] -3 mmol/L Low -2 to +2 [facility] Comment on above: Performed By: #### L 0.0800 ####[facility] [address] [place], [address] Blood Gas Type ART Normal [facility] Comment on above: Performed By: #### L 9000.0800 ####[facility] [address] [place], [address] CO2 [Moles/Vol] 28 mmol/L Normal [facility] Comment on above: Performed By: #### L 9000.0800 ####[facility] [address] [place], [address] FI02 100.0 Normal [facility] Comment on above: Performed By: #### L 9000.0800 ####[facility] [address] [place], [address] HCO3 (Bld) [Moles/Vol] 26.1 mmol/L High 22-26 [facility] Comment on above: Performed By: #### L 9000.0800 ####[facility] [address] [place], [address] Mode avaps Normal [facility] Comment on above: Performed By: #### L 9000.0800 ####[facility] [address] [place], [address] O2 Delivery Dev BiPAP Normal [facility] Comment on above: Performed By: #### L 9000.0800 ####[facility] [address] [place], [address] pCO2 75.9 mmHg Invalid Interpretation Code 35-45 [facility] Comment on above: Performed By: #### L 9000.0800 ####[facility] [address] [place], [address] PEEP 10 Normal [facility] Comment on above: Performed By: #### L 9000.0800 ####[facility] [address] [place], [address] pH (Bld) 7.14 [pH] Invalid Interpretation Code 7.35-7.45 [facility] Comment on above: Performed By: #### L 9000.0800 ####[facility] [address] [place], [address] PO2 85 mmHG Normal 75-100 [facility] Comment on above: Performed By: #### L 9000.0800 ####[facility] [address] [place], [address] Read Back By Yes [facility] Comment on above: Performed By: #### L 9000.0800 ####[facility] [address] [place], [address] Results To monk [facility] Comment on above: Performed By: #### L 9000.0800 ####[facility] [address] [place], [address] RR 16 Normal [facility] Comment on above: Performed By: #### L 9000.0800 ####[facility] [address] [place], [address] SITE R Radial [facility] Comment on above: Performed By: #### L 9000.0800 ####[facility] [address] [place], [address] SO2 92 Low 95-99 [facility] Comment on above: Performed By: #### L 9000.0800 ####[facility] [address] [place], [address] Time Given 07:33:57 [facility] Comment on above: Performed By: #### L 9000.0800 ####[facility] [address] [place], [address] Vt 450.0 mL [facility] Comment on above: Performed By: #### L 9000.0800 ####[facility] [address] [place], [address] SERGEI TEST N/A Normal [facility] Comment on above: Performed By: #### L 0.0800 ####[facility] [address] [place], [address] Base excess Calc (Bld) [Moles/Vol] -3 mmol/L Low -2 to +2 [facility] Comment on above: Performed By: #### L 8999.0800 ####[facility] [address] [place], [address] Blood Gas Type ART Normal [facility] Comment on above: Performed By: #### L 8999.0800 ####[facility] [address] [place], [address] CO2 [Moles/Vol] 28 mmol/L Normal [facility] Comment on above: Performed By: #### L 8999.0800 ####[facility] [address] [place], [address] FI02 92.0 [facility] Comment on above: Performed By: #### L 8999.0800 ####[facility] [address] [place], [address] HCO3 (Bld) [Moles/Vol] 25.8 mmol/L Normal 22-26 [facility] Comment on above: Performed By: #### L 8999.0800 ####[facility] [address] [place], [address] Mode 60L Normal [facility] Comment on above: Performed By: #### L 0.0800 ####[facility] [address] [place], [address] O2 Delivery Dev AIRVO Normal [facility] Comment on above: Performed By: #### L 0.0800 ####[facility] [address] [place], [address] pCO2 71.3 mmHg Invalid Interpretation Code 35-45 [facility] Comment on above: Performed By: #### L 9000.0800 ####[facility] [address] [place], [address] pH (Bld) 7.17 [pH] Invalid Interpretation Code 7.35-7.45 [facility] Comment on above: Performed By: #### L 9000.0800 ####[facility] [address] [place], [address] PO2 67 mmHG Low 75-100 [facility] Comment on above: Performed By: #### L 0.0800 ####[facility] [address] [place], [address] Read Back By Yes [facility] Comment on above: Performed By: #### L 0.0800 ####[facility] [address] [place], [address] Monk [facility] Comment on above: Performed By: #### L 0.0800 ####[facility] [address] [place], [address] SITE R Brach Normal [facility] Comment on above: Performed By: #### L 9000.0800 ####[facility] [address] [place], [address] SO2 86 Low 95-99 [facility] Comment on above: Performed By: #### L 0.0800 ####[facility] [address] [place], [address] Time Given 06:03:13 [facility] Comment on above: Performed By: #### L 0.0800 ####[facility] [address] [place], [address] Blood base excess determinat ionOrdered By: Sudhir Izquierdo on 03-15-2025 Base excess Calc (BldV) [Moles/Vol] 0 mmol/L -2-2 [facility] Blood bicarbonate measuremen tOrdered By: Sudhir Izquierdo on 03-15-2025 HCO3 (Bld) [Moles/Vol] 26.8 mmol/L High 22-26 [facility] CBC W/Diff, Automatedon 02-26 Absolute Lymph 1.20 X10 3/uL Normal 0.83-4.51 [facility] Comment on above: Performed By: #### L 500.4050, L100.0100 ####[facility] [address] [place], [address] Absolute Neut 17.4 X10 3/uL High 2.0-7.7 [facility] Comment on above: Performed By: #### L 500.4050, L100.0100 ####[facility] [address] [place], [address] Basophils/100 WBC (Bld) 0.4 % Normal 0-1 [facility] Comment on above: Performed By: #### L 500.4050, L100.0100 ####[facility] [address] [place], [address] Eosinophils/100 WBC (Bld) 0.3 % Normal 0-5 [facility] Comment on above: Performed By: #### L 500.4050, L100.0100 ####[facility] [address] [place], [address] Erythrocyte distribution width (RBC) [Ratio] 14.6 % Normal 11.6-14.6 [facility] Comment on above: Performed By: #### L 500.4050, L100.0100 ####[facility] [address] [place], [address] Hematocrit (Bld) [Volume fraction] 37.1 % Normal 37-47 [facility] Comment on above: Performed By: #### L 500.4050, L100.0100 ####[facility] [address] [place], [address] Hemoglobin (Bld) [Mass/Vol] 10.9 g/dL Low 12.0-15.0 [facility] Comment on above: Performed By: #### L 500.4050, L100.0100 ####[facility] [address] [place], [address] IG% 3.800 High 0.0-0.9 [facility] Comment on above: Result Comment: IG% - Immature Granulocytes (promyelocytes, myelocytes andmetamyelocytes) > 1% indicates that a LEFT SHIFT is Present. Performed By: #### L 500.4050, L100.0100 ####[facility] [address] [place], [address] Lymphocytes/100 WBC (Bld) 5.8 % Low 19-41 [facility] Comment on above: Performed By: #### L 500.4050, L100.0100 ####[facility] [address] [place], [address] MCH (RBC) [Entitic mass] 26.3 pg Low 27.0-32.0 [facility] Comment on above: Performed By: #### L 500.4050, L100.0100 ####[facility] [address] [place], [address] MCHC (RBC) [Mass/Vol] 29.4 g/dL Low 32-36 [facility] Comment on above: Performed By: #### L 500.4050, L100.0100 ####[facility] [address] [place], [address] MCV (RBC) [Entitic vol] 89.4 fL Normal 81-99 [facility] Comment on above: Performed By: #### L 500.4050, L100.0100 ####[facility] [address] [place], [address] Monocytes/100 WBC (Bld) 6.1 % Normal 0-10 [facility] Comment on above: Performed By: #### L 500.4050, L100.0100 ####[facility] [address] [place], [address] Neutrophils/100 WBC (Bld) 83.6 % High 47-70 [facility] Comment on above: Performed By: #### L 500.4050, L100.0100 ####[facility] [address] [place], [address] Nucleated RBC (Bld) [#/Vol] 0 10*3/uL Normal 0-5 [facility] Comment on above: Performed By: #### L 500.4050, L100.0100 ####[facility] [address] [place], [address] Platelet mean volume (Bld) [Entitic vol] 10.1 fL Normal 6.2-12.0 [facility] Comment on above: Performed By: #### L 500.4050, L100.0100 ####[facility] [address] [place], [address] Platelets (Bld) [#/Vol] 315 10*3/uL Normal 150-450 [facility] Comment on above: Performed By: #### L 500.4050, L100.0100 ####[facility] [address] [place], [address] RBC (Bld) [#/Vol] 4.15 10*6/uL Low 4.2-5.4 [facility] Comment on above: Performed By: #### L 500.4050, L100.0100 ####[facility] [address] [place], [address] RDW SD 48.1 fl High 35.1-43.9 [facility] Comment on above: Performed By: #### L 500.4050, L100.0100 ####[facility] [address] [place], [address] WBC (Bld) [#/Vol] 20.8 10*3/uL High 4.4-11.0 [facility] Comment on above: Performed By: #### L 500.4050, L100.0100 ####[facility] [address] [place], [address] CNCRITCRon 03-15-2025 CNCRITCR Critical Care Transp ort (CCT) GRACIE BANUELOS ([id number]) 1965 F Date Time Provider Department 03/15/25 MAKSIM ANDERSON During your visit today, we recorded the following information about you: Maksim Anderson APRN.[employer] 03/16/2025 7:05 AM Signed CRITICAL CARE TRANSPORT MEDICAL CONTROL CONSULT NOTE Patient Name: Gracie Banuelos Service Date: March 16, 2025 Referring Facility: [facility] Accepting Facility: [facility] REASON FOR TRANSPORT: Higher level intensive care [...] N/C at home) who was admitted to [facility] for evaluation of Acute on Chronic Pancreatitis [...] HCO3 26.8. Patient is being transferred to [facility] for higher level intensive care services [...] confirmed and read back via telephone with [facility] Transport membership solicitor, [employer], [employer] SIGNATURE: Maksim Anderson APRN.[facility] Acute Care Nurse Practitioner Critical Care Transport [...] Assessed Reason for Visit: Critical Care Transport [1718] Order(s):[] fentaNYL 50 mcg/mL 25 mcg injection [...] Pressure Monitor (more content not included)... Normal [facility] CXR for Line Placementon CXR for Line Placement Normal [facility] Carbon dioxide, total [Moles /volume] in Central venous bloodOrdered By: Sudhir Izquierdo on 03-15-2025 CO2 [Moles/Vol] 22.5 mmol/L 21.0-32.0 [facility] Chest 1 View (Portable)on Chest 1 View (Portable) Normal [facility] Chloride assayOrdered By: Rosana Izquierdo on 03-15-2025 Chloride [Moles/Vol] 103 mmol/L 98-108 [facility] Comprehensive Metabolic Prof ilon 03-15-2025 Albumin [Mass/Vol] 3.5 g/dL Normal 3.4-4.8 [facility] Comment on above: Performed By: #### L 500.4050, L100.0100 ####[facility] [address] [place], [address] Albumin/Globulin [Mass ratio] 1.0 {ratio} Normal 0.9-2.4 [facility] Comment on above: Performed By: #### L 500.4050, L100.0100 ####[facility] [address] [place], [address] ALK PHOS 191 U/L High 35-104 [facility] Comment on above: Performed By: #### L 500.4050, L100.0100 ####[facility] [address] [place], [address] ALT [Catalytic activity/Vol] 24 U/L Normal <=34 [facility] Comment on above: Performed By: #### L 500.4050, L100.0100 ####[facility] [address] [place], [address] AST [Catalytic activity/Vol] 18 U/L Normal <=31 [facility] Comment on above: Performed By: #### L 500.4050, L100.0100 ####[facility] [address] [place], [address] Bilirubin [Mass/Vol] 0.24 mg/dL Normal 0.00-1.30 [facility] Comment on above: Performed By: #### L 500.4050, L100.0100 ####[facility] [address] [place], [address] BUN/CRE 15.6 RATIO Normal 10-20 [facility] Comment on above: Performed By: #### L 500.4050, L100.0100 ####[facility] [address] [place], [address] Calcium [Mass/Vol] 9.4 mg/dL Normal 7.6-11.0 [facility] Comment on above: Performed By: #### L 500.4050, L100.0100 ####[facility] [address] [place], [address] Chloride [Moles/Vol] 103 mmol/L Normal 98-108 [facility] Comment on above: Performed By: #### L 500.4050, L100.0100 ####[facility] [address] [place], [address] CO2 [Moles/Vol] 22.5 mmol/L Normal 21.0-32.0 [facility] Comment on above: Performed By: #### L 500.4050, L100.0100 ####[facility] [address] [place], [address] Creatinine [Mass/Vol] 0.73 mg/dL Normal 0.70-1.20 [facility] Comment on above: Performed By: #### L 500.4050, L100.0100 ####[facility] [address] [place], [address] ECRCL 72.87 ml/min Normal 50-250 [facility] Comment on above: Performed By: #### L 500.4050, L100.0100 ####[facility] [address] [place], [address] GAP 14 Normal 5-15 [facility] Comment on above: Performed By: #### L 500.4050, L100.0100 ####[facility] [address] [place], [address] GFR/1.73 sq M.predicted among non-blacks MDRD (S/P/Bld) [Vol rate/Area] 94 mL/min/{1.73_m2} Normal >60 [facility] Comment on above: Result Comment: mL/m in/1.73m2 CKD-EPI Creatinine Equation (2020) Performed By: #### L 500.4050, L100.0100 ####[facility] [address] [place], [address] Globulin (S) [Mass/Vol] 3.4 g/dL Normal 2.2-4.2 [facility] Comment on above: Performed By: #### L 500.4050, L100.0100 ####[facility] [address] [place], [address] Glucose [Mass/Vol] 83 mg/dL Normal 70-99 [facility] Comment on above: Performed By: #### L 500.4050, L100.0100 ####[facility] [address] [place], [address] Potassium [Moles/Vol] 4.4 mmol/L Normal 3.3-5.1 [facility] Comment on above: Performed By: #### L 500.4050, L100.0100 ####[facility] [address] [place], [address] Sodium [Moles/Vol] 140 mmol/L Normal 133-145 [facility] Comment on above: Performed By: #### L 500.4050, L100.0100 ####[facility] [address] [place], [address] T PROT 6.9 g/dL Normal 5.9-8.4 [facility] Comment on above: Performed By: #### L 500.4050, L100.0100 ####[facility] [address] [place], [address] Urea nitrogen [Mass/Vol] 11 mg/dL Normal 4- [facility] Comment on above: Performed By: #### L 500.4050, L100.0100 ####[facility] [address] [place], [address] Consultation - Intensiviston 03-15-2025 Consultation - Paint Stock Clerk Normal [facility] Eosinophil percentageOrdered By: Sudhir Izquierdo on 03-15-2025 Eosinophils/100 WBC (Bld) 0.3 % 0-5 [facility] Erythrocyte distribution wid th ratioOrdered By: Sudhirsalvatore Izquierdo on 03-15-2025 Erythrocyte distribution width (RBC) [Ratio] 14.6 % 11.6-14.6 [facility] Erythrocyte distribution wid th standard deviationOrdered By: Sudhir Nelidaacmh hospitalsalvatore on 03-15-2025 Erythrocyte distribution width (RBC) [Ratio] 48.1 fl High 35.1-43.9 [facility] Glomerular filtration rate ( GFR) estimation/1.73 sq m using serum, plasma, or whole bOrdered By: Sudhir Izquierdo on 03-15-2025 GFR/1.73 sq M.predicted among non-blacks MDRD (S/P/Bld) [Vol rate/Area] 94 mL/min/{1.73_m2} >60 [facility] Gram stainOrdered By: Gonzalo Sebastian on 03-15-2025 Microscopic observation Gram stain Nom (Unsp spec) [facility] HISTORY PHYSICALon HISTORY PHYSICAL HNO ID: [id number] Author: CURT PAEZ APRN.BOX TOE MAKER Service: Critical Care Author Type: Nurse Practitioner Type: H&P Filed: 03/16/2025 00:38 Note Text: [facility] SERVICE DATE: March 15, 2025 SERVICE TIME: 8:49 PM Consulting Doctor: Dr. Ana Paula LOTT - [facility] CHIEF COMPLAINT: Acute on chronic hypoxic respiratory failure, severe sepsis HPI: This 59 [facility] for acute on chronic hypoxic respiratory failure requiring intubation and ventilator dependence. Patient has a history of alcoholic pancreatitis. 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 She was recently admitted to [facility] where she was seen by GI specialist Dr. Garrido and had a pancreatic stent placed on Thursday. Per report from patient, she had been having worsening epigastric pain since then. She denied infectious symptoms, shortness of breath, chest pain, urinary symptoms, diarrhea, or constipation. She has a history of COPD and is on 5 L nasal cannula at baseline. Patient went to [facility] on 03/13 for this epigastric pain. [...] scan. Given her recent stent placement at [facility], initiation of transfer made and was accepted. Unfortunately, no bed available at that time therefore patient admitted to [facility] for pain management and fluid resuscitation. While admitted, patient respiratory status continued to worsen. She required high flow nasal cannula and subsequently intubation while in their ICU. Per report, patient unable to be adequately oxygenated and more emergent transfer was sought out. Patient able to be transferred to [facility] was contacted. Patient was discussed extensively with physician and ICU team here at [facility]. Patient ultimately accepted for transfer. Upon arrival [...] started on vasopressin. Family en route to [facility]. Orders placed. PAST MEDICAL HISTORY: SEE CHRONIC [...] Stage 3 severe COPD by GOLD classification ([facility]) 2018 Tobacco use greater than 30 years [...] History Toba (more content not included)... Normal [facility] Hematocrit Auto (Bld) [Volum e fraction]Ordered By: Sudhir Izquierdo on 03-15-2025 Hematocrit (Bld) [Volume fraction] 37.1 % 37-47 [facility] Hemoglobin measurementOrdere d By: Sudhir Izquierdo on 03-15-2025 Hemoglobin (Bld) [Mass/Vol] 10.9 g/dL Low 12.0-15.0 [facility] Immature granulocytes/100 WB C Auto (Bld)Ordered By: Sudhir Izquierdo on 03-15-2025 Immature granulocytes/100 WBC (Bld) 3.800 % High 0.0-0.9 [facility] L503.7505on 03-15-2025 Natriuretic peptide B (Bld) [Mass/Vol] 4257 pg/mL High <=900 [facility] Comment on above: Result Comment: Hear t Failure Unlikely: < 300 pg/mLHeart Failure Likely< 50 Years: > 450 pg/mL50-75 Years: > 900 pg/mL>75 Years: > 1800 pg/mL Performed By: #### L 503.7505 ####[facility] [address] [place], [place], [id number] L509.7001on 03-15-2025 Procalcitonin 0.28 ng/mL High <=0.10 [facility] Comment on above: Result Comment: Inte rpretation:<0.10-0.25 ng/mL: Antibiotic therapy discouraged. Bacterialinfection unlikely.0.25-0.50 ng/mL: Antibiotic therapy encouraged. Bacterialinfection possible.>0.50 ng/mL: Antibiotic therapy strongly encouraged.Suggestive of presence of bacterial infection.PCT should always be interpreted in the clinical context ofthe patient. Therefore, clinicians should use the PCTresults in conjunction with other laboratory findings andclinical signs of the patient. Performed By: #### L 509.7006 ####[facility] [address] [facility] [place], [place], [id number] MCV (mean corpuscular volume ) determinationOrdered By: Sudhir Izquierdo on 03-15-2025 MCV (RBC) [Entitic vol] 89.4 fL 81-99 [facility] Mean corpuscular hemoglobin (MCH) determinationOrdered By: Sudhir Izquierdo on 03-15-2025 MCH (RBC) [Entitic mass] 26.3 pg Low 27.0-32.0 [facility] Measurement, pHOrdered By: Nathalia Izquierdo on 03-15-2025 pH (Unsp spec) 7.26 [pH] Low 7.35-7.45 [facility] Microbial respiratory cultur eOrdered By: Gonzalo Sebastian on 03-15-2025 Microorganism identified Cx Nom (Unsp spec) Streptococcus pneumoniae Abnormal [facility] Microorganism identified Cx Nom (Unsp spec) Staphylococcus aureus Abnormal [facility] Monocyte percentageOrdered B y: Sudhir Izquierdo on 03-15-2025 Monocytes/100 WBC (Bld) 6.1 % 0-10 [facility] Natriuretic peptide.B prohor marium N-Terminal [Mass/volume] in Serum or PlasmaOrdered By: Jackson Chopra on 03-15-2025 Natriuretic peptide.B prohormone N-Terminal [Mass/Vol] 4257 pg/mL High <900 [facility] Neutrophil percentageOrdered By: Sudhir Izquierdo on 03-15-2025 Neutrophils/100 WBC (Bld) 83.6 % High 47-70 [facility] No Panel InformationOrdered By: Sudhir Izquierdo on 03-15-2025 ART [facility] R Radial [facility] AC [facility] ET Tube [facility] 450.0 mL [facility] 16 [facility] 12 [facility] 17:53:45 [facility] BROWN [facility] Yes [facility] 18 U/L <32 [facility] Platelet countOrdered By: Rosana Izquierdo on 03-15-2025 Platelets (Bld) [#/Vol] 315 10*3/uL 150-450 [facility] Potassium measurement (mass/ volume)Ordered By: Sudhir Izquierdo on 03-15-2025 Potassium (Unsp spec) [Mass/Vol] 4.4 mmol/L 3.3-5.1 [facility] Procalcitonin [Mass/volume] in Serum or Plasma by ImmunoassayOrdered By: Gonzalo Sebastian on 03-15-2025 Procalcitonin IA [Mass/Vol] 0.28 ng/mL High <0.11 [facility] RBC Auto (Bld) [#/Vol]Ordere d By: Sudhir Izquierdo on 03-15-2025 RBC (Bld) [#/Vol] 4.15 10*6/uL Low 4.2-5.4 [facility] Serum creatinine measurement (mass/volume)Ordered By: Sudhir Izquierdo on 03-15-2025 Creatinine [Mass/Vol] 0.73 mg/dL 0.70-1.20 [facility] Serum globulin measurementOr dered By: Sudhir Izquierdo on 03-15-2025 Globulin (S) [Mass/Vol] 3.4 g/dL 2.2-4.2 [facility] Serum glucose measurement (m ass/volume)Ordered By: Sudhir Izquierdo on 03-15-2025 Glucose [Mass/Vol] 83 mg/dL 70-99 [facility] Serum or plasma alanine pimentel otransferase (ALT) measurementOrdered By: Sudhir Izquierdo on 03-15-2025 ALT [Catalytic activity/Vol] 24 U/L <35 [facility] Serum or plasma albumin esthela urement (mass/volume)Ordered By: Sudhir Izquierdo on 03-15-2025 Albumin [Mass/Vol] 3.5 g/dL 3.4-4.8 [facility] Serum or plasma albumin/glob ulin mass ratioOrdered By: Sudhir Izquierdo on 03-15-2025 Albumin/Globulin [Mass ratio] 1.0 {ratio} 0.9-2.4 [facility] Serum or plasma alkaline jose sphatase measurementOrdered By: Sudhir Izquierdo on 03-15-2025 ALP [Catalytic activity/Vol] 191 U/L High 35-104 [facility] Serum or plasma calcium esthela urement (mass/volume)Ordered By: Sudhir Izquierdo on 03-15-2025 Calcium [Mass/Vol] 9.4 mg/dL 7.6-11.0 [facility] Serum or plasma urea nitroge n measurement (mass/volume)Ordered By: Sudhir Izquierdo on 03-15-2025 Urea nitrogen [Mass/Vol] 11 mg/dL 4-19 [facility] Sodium levelOrdered By: Sebastian Izquierdo on 03-15-2025 Sodium [Moles/Vol] 140 mmol/L 133-145 [facility] Total carbon dioxide measure mentOrdered By: Sudhir Izquierdo on 03-15-2025 CO2 [Moles/Vol] 29 mmol/L [facility] Total proteinOrdered By: Luis Izquierdo on 03-15-2025 Protein [Mass/Vol] 6.9 g/dL 5.9-8.4 [facility] Urine Cultureon 03-15-2025 URC Mixed Gram Positive Organisms [place] Count 80,000-100,000 MIXC Mixed contaminants. Submit a new specimen if indicated. Normal [facility] Comment on above: Performed By: #### M 100.2200 ####[facility] [address] [place], [address] White blood cell (WBC) count Ordered By: Sudhir Izquierdo on 03-15-2025 WBC (Bld) [#/Vol] 20.8 10*3/uL High 4.4-11.0 [facility] XR ABDOMEN 1V SUPINEon 03-15 XR ABDOMEN [...] Evaluate tube, line, or lead position (accession [id number]), Evaluate tube, line or lead position (accession [id number]) , establish chronic pancreatitis. MQ: XCPR_5 Comparison: [...] Bilateral pleural effusions with nonspecific retrocardiac opacity. Weathercaster: BABATUNDE Transcribe Date/Time: Mar 16 2025 1:30A Dictated by : SUELLEN SÁNCHEZ MD This examination was interpreted and the report reviewed and electronically signed by: SUELLEN SÁNCHEZ MD on Mar 16 2025 1:33AM EST [id number] Normal [facility] XR CHEST 1V FRONTAL PORTon 0 [...] Evaluate tube, line, or lead position (accession [id number]), Evaluate tube, line or lead position (accession [id number]) , establish chronic pancreatitis. MQ: XCPR_5 Comparison: [...] Bilateral pleural effusions with nonspecific retrocardiac opacity. Weathercaster: BABATUNDE Transcribe Date/Time: Mar 16 2025 1:30A Dictated by : SUELLEN SÁNCHEZ MD This examination was interpreted and the report reviewed and electronically signed by: SUELLEN SÁNCHEZ MD on Mar 16 2025 1:33AM EST [id number] Normal [facility] CBC W/Diff, Automatedon 06- Absolute Lymph 1.97 X10 3/uL Normal 0.83-4.51 [facility] Comment on above: Performed By: #### L 100.0100 ####[facility] [address] [place], [address] Absolute Neut 17.9 X10 3/uL High 2.0-7.7 [facility] Comment on above: Performed By: #### L 100.0100 ####[facility] [address] [place], [address] Basophils/100 WBC (Bld) 0.4 % Normal 0-1 [facility] Comment on above: Performed By: #### L 100.0100 ####[facility] [address] [place], [address] Eosinophils/100 WBC (Bld) 1.2 % Normal 0-5 [facility] Comment on above: Performed By: #### L 100.0100 ####[facility] [address] [place], [address] Erythrocyte distribution width (RBC) [Ratio] 14.8 % High 11.6-14.6 [facility] Comment on above: Performed By: #### L 100.0100 ####[facility] [address] [place], [address] Hematocrit (Bld) [Volume fraction] 33.5 % Low 37-47 [facility] Comment on above: Performed By: #### L 100.0100 ####[facility] [address] [place], [address] Hemoglobin (Bld) [Mass/Vol] 9.9 g/dL Low 12.0-15.0 [facility] Comment on above: Performed By: #### L 100.0100 ####[facility] [address] [place], [address] IG% 1.300 High 0.0-0.9 [facility] Comment on above: Result Comment: IG% - Immature Granulocytes (promyelocytes, myelocytes andmetamyelocytes) > 1% indicates that a LEFT SHIFT is Present. Performed By: #### L 100.0100 ####[facility] [address] [place], [address] Lymphocytes/100 WBC (Bld) 9.0 % Low 19-41 [facility] Comment on above: Performed By: #### L 100.0100 ####[facility] [address] [place], [address] MCH (RBC) [Entitic mass] 26.3 pg Low 27.0-32.0 [facility] Comment on above: Performed By: #### L 100.0100 ####[facility] [address] [place], [address] MCHC (RBC) [Mass/Vol] 29.6 g/dL Low 32-36 [facility] Comment on above: Performed By: #### L 100.0100 ####[facility] [address] [place], [address] MCV (RBC) [Entitic vol] 88.9 fL Normal 81-99 [facility] Comment on above: Performed By: #### L 100.0100 ####[facility] [address] [place], [address] Monocytes/100 WBC (Bld) 6.4 % Normal 0-10 [facility] Comment on above: Performed By: #### L 100.0100 ####[facility] [address] [place], [address] Neutrophils/100 WBC (Bld) 81.7 % High 47-70 [facility] Comment on above: Performed By: #### L 100.0100 ####[facility] [address] [place], [address] Nucleated RBC (Bld) [#/Vol] 0 10*3/uL Normal 0-5 [facility] Comment on above: Performed By: #### L 100.0100 ####[facility] [address] [place], [address] Platelet mean volume (Bld) [Entitic vol] 10.8 fL Normal 6.2-12.0 [facility] Comment on above: Performed By: #### L 100.0100 ####[facility] [address] [place], [address] Platelets (Bld) [#/Vol] 263 10*3/uL Normal 150-450 [facility] Comment on above: Performed By: #### L 100.0100 ####[facility] [address] [place], [address] RBC (Bld) [#/Vol] 3.77 10*6/uL Low 4.2-5.4 [facility] Comment on above: Performed By: #### L 100.0100 ####[facility] [address] [place], [address] RDW SD 48.7 fl High 35.1-43.9 [facility] Comment on above: Performed By: #### L 100.0100 ####[facility] [address] [place], [address] WBC (Bld) [#/Vol] 21.9 10*3/uL High 4.4-11.0 [facility] Comment on above: Performed By: #### L 100.0100 ####[facility] [address] [place], [address] Comprehensive Metabolic Prof azsandor 03-14-2025 Albumin [Mass/Vol] 3.5 g/dL Normal 3.4-4.8 [facility] Comment on above: Performed By: #### L 501.2450, L500.4050 ####[facility] [address] [place], [address] Albumin/Globulin [Mass ratio] 1.1 {ratio} Normal 0.9-2.4 [facility] Comment on above: Performed By: #### L 501.2450, L500.4050 ####[facility] [address] [place], [address] ALK PHOS 188 U/L High 35-104 [facility] Comment on above: Performed By: #### L 501.2450, L500.4050 ####[facility] [address] [place], [address] ALT [Catalytic activity/Vol] 29 U/L Normal <=34 [facility] Comment on above: Performed By: #### L 501.2450, L500.4050 ####[facility] [address] [place], [address] AST [Catalytic activity/Vol] 22 U/L Normal <=31 [facility] Comment on above: Performed By: #### L 501.2450, L500.4050 ####[facility] [address] [place], [address] Bilirubin [Mass/Vol] 0.23 mg/dL Normal 0.00-1.30 [facility] Comment on above: Performed By: #### L 501.2450, L500.4050 ####[facility] [address] [place], [address] BUN/CRE 20.6 RATIO High 10-20 [facility] Comment on above: Performed By: #### L 501.2450, L500.4050 ####[facility] [address] [place], [address] Calcium [Mass/Vol] 9.1 mg/dL Normal 7.6-11.0 [facility] Comment on above: Performed By: #### L 501.2450, L500.4050 ####[facility] [address] [place], [address] Chloride [Moles/Vol] 101 mmol/L Normal 98-108 [facility] Comment on above: Performed By: #### L 501.2450, L500.4050 ####[facility] [address] [place], [address] CO2 [Moles/Vol] 24.2 mmol/L Normal 21.0-32.0 [facility] Comment on above: Performed By: #### L 501.2450, L500.4050 ####[facility] [address] [place], [address] Creatinine [Mass/Vol] 0.90 mg/dL Normal 0.70-1.20 [facility] Comment on above: Performed By: #### L 501.2450, L500.4050 ####[facility] [address] [place], [address] ECRCL 59.11 ml/min Normal 50-250 [facility] Comment on above: Performed By: #### L 501.2450, L500.4050 ####[facility] [address] [place], [address] GAP 15 Normal 5-15 [facility] Comment on above: Performed By: #### L 501.2450, L500.4050 ####[facility] [address] [place], [address] GFR/1.73 sq M.predicted among non-blacks MDRD (S/P/Bld) [Vol rate/Area] 73 mL/min/{1.73_m2} Normal >60 [facility] Comment on above: Result Comment: mL/m in/1.73m2 CKD-EPI Creatinine Equation (2020) Performed By: #### L 501.2450, L500.4050 ####[facility] [address] [place], [address] Globulin (S) [Mass/Vol] 3.1 g/dL Normal 2.2-4.2 [facility] Comment on above: Performed By: #### L 501.2450, L500.4050 ####[facility] [address] [place], [address] Glucose [Mass/Vol] 64 mg/dL Low 70-99 [facility] Comment on above: Performed By: #### L 501.2450, L500.4050 ####[facility] [address] [place], [address] Potassium [Moles/Vol] 4.1 mmol/L Normal 3.3-5.1 [facility] Comment on above: Performed By: #### L 501.2450, L500.4050 ####[facility] [address] [place], [address] Sodium [Moles/Vol] 140 mmol/L Normal 133-145 [facility] Comment on above: Performed By: #### L 501.2450, L500.4050 ####[facility] [address] [place], [address] T PROT 6.6 g/dL Normal 5.9-8.4 [facility] Comment on above: Performed By: #### L 501.2450, L500.4050 ####[facility] [address] [place], [address] Urea nitrogen [Mass/Vol] 19 mg/dL Normal 4-19 [facility] Comment on above: Performed By: #### L 501.2450, L500.4050 ####[facility] [address] [place], [address] Lipaseon 03-14-2025 Lipase [Catalytic activity/Vol] 362 U/L High 13-75 [facility] Comment on above: Result Comment: Jenny capellan note:LIPASE revised reference range effective 23.New Lipase methodology. Expected to produce lower valuesthan the previous assay method.NEW Reference Range: 13 - 75 U/L Performed By: #### L 501.2450, L500.4050 ####[facility] [address] [place], [address] Abdomen/Pelvis W IV Cont ONL Yon 03-13-2025 Abdomen/Pelvis W IV Cont ONLY Normal [facility] Absolute lymphocyte countOrd ered By: Macario Alex on 03-13-2025 Lymphocytes Auto (Unsp spec) [#/Vol] 1.85 10*3/uL 0.83-4.51 [facility] Alcohol, Blood (Medical)-Ser umon 03-13-2025 SERUM ETOH < 10.1 Normal <=10.0 [facility] Comment on above: Result Comment: This test is for medical purposes only. The legaldefinition of intoxication varies according to local law. Performed By: #### L 501.9100 ####[facility] [address] [place], [address] Anion gap in Serum or Plasma Ordered By: Macario Alex on 03-13-2025 Anion gap [Moles/Vol] 14 mmol/L 5-15 [facility] Automated lymphocyte count a s percentage of total leukocytesOrdered By: Macario Alex on 03-13-2025 Lymphocytes/100 WBC Auto (Unsp spec) 6.3 % Low 19-41 [facility] BUN/creatinine ratioOrdered By: Macario Alex on 03-13-2025 Urea nitrogen/Creatinine [Mass ratio] 16.9 mg/mg 10-20 [facility] Basic Metabolic Profile (BMP )on 03-13-2025 BUN/CRE 16.9 RATIO Normal 10-20 [facility] Comment on above: Performed By: #### L 501.2450, L500.3400, L500.2500 ####[facility] [address] [place], [address] Calcium [Mass/Vol] 9.5 mg/dL Normal 7.6-11.0 [facility] Comment on above: Performed By: #### L 501.2450, L500.3400, L500.2500 ####[facility] [address] [place], [address] Chloride [Moles/Vol] 92 mmol/L Low 98-108 [facility] Comment on above: Performed By: #### L 501.2450, L500.3400, L500.2500 ####[facility] [address] [place], [address] CO2 [Moles/Vol] 28.0 mmol/L Normal 21.0-32.0 [facility] Comment on above: Performed By: #### L 501.2450, L500.3400, L500.2500 ####[facility] [address] [place], [address] Creatinine [Mass/Vol] 0.84 mg/dL Normal 0.70-1.20 [facility] Comment on above: Performed By: #### L 501.2450, L500.3400, L500.2500 ####[facility] [address] [place], [address] ECRCL 58.18 ml/min Normal 50-250 [facility] Comment on above: Performed By: #### L 501.2450, L500.3400, L500.2500 ####[facility] [address] [place], [address] GAP 14 Normal 5-15 [facility] Comment on above: Performed By: #### L 501.2450, L500.3400, L500.2500 ####[facility] [address] [place], [address] GFR/1.73 sq M.predicted among non-blacks MDRD (S/P/Bld) [Vol rate/Area] 79 mL/min/{1.73_m2} Normal >60 [facility] Comment on above: Result Comment: mL/m in/1.73m2 CKD-EPI Creatinine Equation (2020) Performed By: #### L 501.2450, L500.3400, L500.2500 ####[facility] [address] [place], [address] Glucose [Mass/Vol] 100 mg/dL High 70-99 [facility] Comment on above: Performed By: #### L 501.2450, L500.3400, L500.2500 ####[facility] [address] [place], [address] Potassium [Moles/Vol] 3.6 mmol/L Normal 3.3-5.1 [facility] Comment on above: Performed By: #### L 501.2450, L500.3400, L500.2500 ####[facility] [address] [place], [address] Sodium [Moles/Vol] 134 mmol/L Normal 133-145 [facility] Comment on above: Performed By: #### L 501.2450, L500.3400, L500.2500 ####[facility] [address] [place], [address] Urea nitrogen [Mass/Vol] 14 mg/dL Normal 4-19 [facility] Comment on above: Performed By: #### L 501.2450, L500.3400, L500.2500 ####[facility] [address] [place], [address] Basophil percentageOrdered B y: Macario Alex on 03-13-2025 Basophils/100 WBC (Bld) 0.4 % 0-1 [facility] Bilirubin Test strip Ql (U)O rdered By: Macario Alex on 03-13-2025 Bilirubin Ql (U) Negative Negative [facility] Bilirubin directOrdered By: Macario Alex on 03-13-2025 Bilirubin.direct [Mass/Vol] 0.29 mg/dL 0.00-0.30 [facility] Bilirubin, totalOrdered By: Macario Alex on 03-13-2025 Bilirubin [Mass/Vol] 0.49 mg/dL 0.00-1.30 [facility] Blood manual differential co mment interpretation (narrative result)Ordered By: Macario Alex on 03-13-2025 Manual differential comment [place] (Bld) [Interp] SCANNED [facility] CBC W/Diff, Automatedon 02-26 SMEAR COMMENT SCANNED Normal [facility] Comment on above: Result Comment: NEUT ROPHILIA NOTEDMONOCYTOSIS NOTED Performed By: #### L 503.6005, L100.0100 ####[facility] [address] [place], [place], [id number] Carbon dioxide, total [Moles /volume] in Central venous bloodOrdered By: Macario Alex on 03-13-2025 CO2 [Moles/Vol] 28.0 mmol/L 21.0-32.0 [facility] Chest PA and Lateralon 03-13 Chest PA and Lateral Normal [facility] Chloride assayOrdered By: David Alex on 03-13-2025 Chloride [Moles/Vol] 92 mmol/L Low 98-108 [facility] Emergency Department Summary on 03-13-2025 Emergency Department Summary Normal [facility] Eosinophil percentageOrdered By: Macario Alex on 03-13-2025 Eosinophils/100 WBC (Bld) 0.5 % 0-5 [facility] Erythrocyte distribution wid th ratioOrdered By: Macario Alex on 03-13-2025 Erythrocyte distribution width (RBC) [Ratio] 14.7 % High 11.6-14.6 [facility] Erythrocyte distribution wid th standard deviationOrdered By: Macaroi Elise on 03-13-2025 Erythrocyte distribution width (RBC) [Ratio] 46.1 fl High 35.1-43.9 [facility] Glomerular filtration rate ( GFR) estimation/1.73 sq m using serum, plasma, or whole bOrdered By: Macariodee Alex on 03-13-2025 GFR/1.73 sq M.predicted among non-blacks MDRD (S/P/Bld) [Vol rate/Area] 79 mL/min/{1.73_m2} >60 [facility] Hematocrit Auto (Bld) [Volum e fraction]Ordered By: [facility]ablo[facility]os[facility] on 03-13-2025 Hematocrit (Bld) [Volume fraction] 35.9 % Low 37-47 [facility] Hemoglobin measurementOrdere d By: Macariodee RiceGosia on 03-13-2025 Hemoglobin (Bld) [Mass/Vol] 11.2 g/dL Low 12.0-15.0 [facility] Immature granulocytes/100 WB C Auto (Bld)Ordered By: [facility] on 03-13-2025 Immature granulocytes/100 WBC (Bld) 1.200 % High 0.0-0.9 [facility] Ketones Test strip Ql (U)Ord ered By: [facility]ablo[facility] on 03-13-2025 Ketones Ql (U) Negative Negative [facility] Lactic Acidon 03-13-2025 Lactate [Moles/Vol] mmol/L Normal 0.0-2.0 [facility] Comment on above: Order Comment: Y Performed By: #### L 503.6005, L100.0100 ####[facility] [address] [place], [address] Lipaseon 03-13-2025 Lipase [Catalytic activity/Vol] 378 U/L High 13-75 [facility] Comment on above: Result Comment: Jenny capellan note:LIPASE revised reference range effective 23.New Lipase methodology. Expected to produce lower valuesthan the previous assay method.NEW Reference Range: 13 - 75 U/L Performed By: #### L 501.2450, L500.3400, L500.2500 ####[facility] [address] [place], [address] Liver Profileon 03-13-2025 Albumin [Mass/Vol] 3.8 g/dL Normal 3.4-4.8 [facility] Comment on above: Performed By: #### L 501.2450, L500.3400, L500.2500 ####[facility] [address] [place], [address] ALK PHOS 149 U/L High 35-104 [facility] Comment on above: Performed By: #### L 501.2450, L500.3400, L500.2500 ####[facility] [address] [place], [address] ALT [Catalytic activity/Vol] 38 U/L High <=34 [facility] Comment on above: Performed By: #### L 501.2450, L500.3400, L500.2500 ####[facility] [address] [place], [address] AST [Catalytic activity/Vol] 21 U/L Normal <=31 [facility] Comment on above: Performed By: #### L 501.2450, L500.3400, L500.2500 ####[facility] [address] [place], [address] Bilirubin [Mass/Vol] 0.49 mg/dL Normal 0.00-1.30 [facility] Comment on above: Performed By: #### L 501.2450, L500.3400, L500.2500 ####[facility] [address] [place], [address] Bilirubin.direct [Mass/Vol] 0.29 mg/dL Normal 0.00-0.30 [facility] Comment on above: Performed By: #### L 501.2450, L500.3400, L500.2500 ####[facility] [address] [place], [address] Globulin (S) [Mass/Vol] 3.2 g/dL Normal 2.2-4.2 [facility] Comment on above: Performed By: #### L 501.2450, L500.3400, L500.2500 ####[facility] [address] [place], [address] T PROT 7.0 g/dL Normal 5.9-8.4 [facility] Comment on above: Performed By: #### L 501.2450, L500.3400, L500.2500 ####[facility] [address] [place], [address] MCV (mean corpuscular volume ) determinationOrdered By: Macario Alex on 03-13-2025 MCV (RBC) [Entitic vol] 86.1 fL 81-99 [facility] Mean corpuscular hemoglobin (MCH) determinationOrdered By: Macario Alex on 03-13-2025 MCH (RBC) [Entitic mass] 26.9 pg Low 27.0-32.0 [facility] Monocyte percentageOrdered B y: Macario Alex on 03-13-2025 Monocytes/100 WBC (Bld) 8.1 % 0-10 [facility] Mucus LM Ql (Urine sed)Order ed By: Macario Alex on 03-13-2025 Mucus Ql (Urine sed) 0 SEEN /hpf [facility] Neutrophil percentageOrdered By: Macario Alex on 03-13-2025 Neutrophils/100 WBC (Bld) 83.5 % High 47-70 [facility] Nitrite Test strip Ql (U)Ord ered By: Macario Alex on 03-13-2025 Nitrite Ql (U) Negative Negative [facility] No Panel InformationOrdered By: Macario Alex on 03-13-2025 21 U/L <32 [facility] Platelet countOrdered By: David Alex on 03-13-2025 Platelets (Bld) [#/Vol] 277 10*3/uL 150-450 [facility] Potassium measurement (mass/ volume)Ordered By: Macario Alex on 03-13-2025 Potassium (Unsp spec) [Mass/Vol] 3.6 mmol/L 3.3-5.1 [facility] Protein Test strip Ql (U)Ord ered By: Macario Alex on 03-13-2025 Protein Ql (U) 30 mg/dl High Negative [facility] RBC Auto (Bld) [#/Vol]Ordere d By: Macario Alex on 03-13-2025 RBC (Bld) [#/Vol] 4.17 10*6/uL Low 4.2-5.4 [facility] Serum creatinine measurement (mass/volume)Ordered By: Macario Alex on 03-13-2025 Creatinine [Mass/Vol] 0.84 mg/dL 0.70-1.20 [facility] Serum globulin measurementOr dered By: Macario Alex on 03-13-2025 Globulin (S) [Mass/Vol] 3.2 g/dL 2.2-4.2 [facility] Serum glucose measurement (m ass/volume)Ordered By: Macario Alex on 03-13-2025 Glucose [Mass/Vol] 100 mg/dL High 70-99 [facility] Serum or plasma alanine pimentel otransferase (ALT) measurementOrdered By: Macario Alex on 03-13-2025 ALT [Catalytic activity/Vol] 38 U/L High <35 [facility] Serum or plasma albumin esthela urement (mass/volume)Ordered By: Macario Elise on 03-13-2025 Albumin [Mass/Vol] 3.8 g/dL 3.4-4.8 [facility] Serum or plasma alkaline jose sphatase measurementOrdered By: Macario Alex on 03-13-2025 ALP [Catalytic activity/Vol] 149 U/L High 35-104 [facility] Serum or plasma calcium esthela urement (mass/volume)Ordered By: Macario Elise on 03-13-2025 Calcium [Mass/Vol] 9.5 mg/dL 7.6-11.0 [facility] Serum or plasma ethanol esthela urement (mass/volume)Ordered By: Macario Elise on 03-13-2025 Ethanol [Mass/Vol] mg/dL <10.1 [facility] Serum or plasma urea nitroge n measurement (mass/volume)Ordered By: Macario Alex on 03-13-2025 Urea nitrogen [Mass/Vol] 14 mg/dL 4-19 [facility] Sodium levelOrdered By: Beto Alex on 03-13-2025 Sodium [Moles/Vol] 134 mmol/L 133-145 [facility] Squamous epithelial cells de tection in urine sediment by light microscopyOrdered By: Macario Alex on 03-13-2025 Epithelial cells.squamous LM Ql (Urine sed) 0-5 SEEN /hpf 5-10 [facility] Total proteinOrdered By: Gumaro Alex on 03-13-2025 Protein [Mass/Vol] 7.0 g/dL 5.9-8.4 [facility] Urinalysis, Completeon 03-13 EPI,SQUAMOUS 0-5 SEEN Normal 5-10 [facility] Comment on above: Order Comment: CLEAN CATCH Performed By: #### L 400.0001 ####[facility] [address] [place], [place], [id number] RBC 0-5 SEEN Normal 0-5 [facility] Comment on above: Order Comment: CLEAN CATCH Performed By: #### L 400.0001 ####[facility] [address] [place], [address] WBC 5-10 SEEN Normal 0-5 [facility] Comment on above: Order Comment: CLEAN CATCH Performed By: #### L 400.0001 ####[facility] [address] [place], [address] BACTERIA 0 SEEN Normal None Seen [facility] Comment on above: Order Comment: CLEAN CATCH Performed By: #### L 400.0001 ####[facility] [address] [place], [address] Mucus Ql (Urine sed) 0 SEEN Normal [facility] Comment on above: Order Comment: CLEAN CATCH Performed By: #### L 400.0001 ####[facility] [address] [place], [place], [address] Urine clarityOrdered By: Gumaro Alex on 03-13-2025 Clarity (U) Clear Clear [facility] Urine color determinationOrd ered By: Macario Alex on 03-13-2025 Color (U) Straw Yellow [facility] Urine cultureOrdered By: Gumaro Alex on 03-13-2025 Bacteria identified Cx Nom (U) Positive Abnormal [facility] Urine glucose detectionOrder ed By: Macario Alex on 03-13-2025 Glucose Ql (U) Normal mg/dl Normal [facility] Urine leukocyte esterase det ection by dipstickOrdered By: Macario Alex on 03-13-2025 Leukocyte esterase Test strip Ql (U) 100 /ul High Negative [facility] Urine pHOrdered By: Macario Barth on 03-13-2025 pH (U) 7.0 [pH] 5.0 - 8.0 [facility] Urine sediment bacteria coun t by microscopy (number/high power field)Ordered By: Macario Alex on 03-13-2025 Bacteria LM.HPF (Urine sed) [#/Area] 0 /[HPF] None Seen [facility] Urine specific gravity measu rementOrdered By: Macario Alex on 03-13-2025 Specific gravity (U) [Rel density] 1.005 1.002-1.030 [facility] Urine urobilinogen measureme ntOrdered By: Macario KlTab on 03-13-2025 Urobilinogen Ql (U) Normal mg/dl Normal [facility] White blood cell (WBC) count Ordered By: Macario [facility]ymimbres memorial hospitalSandee on 03-13-2025 WBC (Bld) [#/Vol] 29.2 10*3/uL High 4.4-11.0 [facility] White blood cell countOrdere d By: Macario Abi on 03-13-2025 White blood cell count 5-10 SEEN /hpf 0-5 [facility] ANES POSTPROC EVALon 025 ANES POSTPROC EVAL HNO ID: [id number] Author: JOSE MARIA CHAKRABORTY MD Service: ? Author Type: Anesthesiologist Type: Anesthesia Postprocedure Evaluation Filed: 03/10/2025 15:51 Note Text: POST ANESTHESIA EVALUATION NOTE : 1965 Procedure Summary Date: 03/10/25 Room / Location: Gastroenterology Anesthesia Start: 1359 Anesthesia Stop: Procedure: ERCP Diagnosis: Other chronic pancreatitis (HCC) Scheduled Providers: Jane Farrell MD; Jose Maria Chakraborty MD; Vanessa Perez APRN.DISTRIBUTION SPECIALIST Responsible Provider: Jose Maria Chakraborty MD Anesthesia [...] March 10, 2025 TIME: 3:16 PM CSN: [id number] Normal [facility] ANES PRE-OPon 03-10-2025 ANES PRE-OP HNO ID: [id number] Author: JOSE MARIA CHAKRABORTY MD Service: ? Author Type: Anesthesiologist Type: Anesthesia Preprocedure Evaluation Filed: 03/10/2025 12:26 Note Text: ANESTHESIOLOGY DAY OF SURGERY NOTE : 1965 Procedure Information Date/Time: 03/10/25 1300 Scheduled providers: Jane Farrell MD; Jose Maria Chakraborty MD; Vanessa Perez APRN.DISTRIBUTION SPECIALIST Procedure: ERCP Location: Gastroenterology Estimated body mass [...] and consent discussed: yes. Patient / Responsible [employer] Party agrees to proceed: yes Patient / [...] 48 areli (more content not included)... Normal [facility] ERCP Study observation Narra tiveon 03-10-2025 [facility] Radiology Study [facility]narrative[facility] NURSING PROGon 03-10-2025 NURSING PROG HNO ID: [id number] Author: JANIS AC RN Service: Gastroenterology Author Type: Registered Nurse Type: Nursing Progress Note Filed: 03/10/2025 17:07 Note Text: Dr Chakraborty anesthesia ok d patient to be discharged Three hot packs given to patient for right arm Normal [facility] NURSING PROG HNO ID: [id number] Author: JANIS AC, SARWAT Service: Gastroenterology Author Type: Registered Nurse Type: Nursing Progress Note Filed: 03/10/2025 16:51 Note Text: Patient states her arm where the infiltration occurred it is burning Patient informed to keep an eye on the infiltrated area so a blister does not form of it does go to the Emergency room Normal [facility] NURSING PROG HNO ID: [id number] Author: JANIS AC, SARWAT Service: Gastroenterology Author Type: Registered Nurse Type: Nursing Progress Note Filed: 03/10/2025 16:24 Note Text: Right AC IV infiltrated with 100cc IV Propofol large swollen red hard area Hot pack applied Patient crying stating arm hurts patient Gracie and sister Magui spoke to Insole Doubler nurse business manager [facility]hma [facility] office number given. Pharmacy called, Zelda pharmacist notified unable to help. Called Drug information line spoke with Milan fallon monitor patient There is no information in regards to amount of time Propofol will take to infuse .Patient is awake alert oriented x3 Normal [facility] NURSING PROG HNO ID: [id number] Author: JANIS AC RN Service: Gastroenterology Author Type: Registered Nurse Type: Nursing Progress Note Filed: 03/10/2025 15:51 Note Text: Dr Chakraborty anesthesia notified patients blood pressure low 73/52 74/51 Albumin 25 grams given Patient awake alert oriented x3 skin warm and dry Normal [facility] NURSING PROG HNO ID: [id number] Author: JANIS AC RN Service: Gastroenterology Author [...] Electronically Signed By: Janis Ac RN Normal [facility] NURSING PROG HNO ID: [id number] Author: ADRIAN EDMOND RN Service: ? Author [...] Adrian Edmond RN In Department: GASTROENTEROLOGY Normal [facility] Matteo 03-07-2025 CNPN Telephone (GASTMN) GRACIE BANUELOS ([id number]) 1965 F Date Time Provider Department 03/07/25 JUAN SENIOR GASTPA During your visit today, we recorded the following information about you: Isis Gil 03/07/2025 11:48 AM Signed She stated there was supposed to be a letter or some document to be faxed over to [facility] to help pay for her gas prior to her ERCP on 03/10/25 Email: [email or web address] Are we able to get that sent over for patient? Thank you Juan Mike LPN 03/07/2025 12:29 PM Signed Jane Farrell MD Department of Gastroenterology- [facility] [address] [place] [address] 03/07/2025 Pt. name: Gracie Banuelos 1965 MEDICAL Procedure This is to certify that Gracie Banuelos this is a letter to confirm that Gracie has a procedure at [facility] on 03/10 with an arrival time of 12pm. 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 Normal [facility] Matteo 03-06-2025 [facility] Telephone (GAPRA3) GRACIE BANUELOS ([id number]) 1965 F Date Time Provider Department 03/06/25 [...] Date Reviewed: 01/13/2025 Reviewed by: Soila Easton APRN.BOX TOE MAKER - Fully Assessed Reason for Visit: Patient Question [9607] Prescriptions as of 03/06/2025 - gabapentin (NEURONTIN) [...] stress female [N39.3] 11/24/2014 HPV test positive [[id number]] 11/24/2014 Alcohol dependence in remission (HCC) [F10.21] [...] Encounter Status:Closed by RAISA JIMENEZ on 03/06/25 [facility] CNPN Telephone (GGENMN) GRACIE BANUELOS ([id number]) 1965 F Date Time Provider Department 03/06/25 CAITLIN OBRIEN GGENMN During your visit today, we recorded the following information about you: Caitlin Obrien, RN 03/06/2025 11:30 AM Signed Attempted to [...] Date Reviewed: 01/13/2025 Reviewed by: Soila Easton APRN.BOX TOE MAKER - Fully Assessed Prescriptions as of 03/06/2025 [...] stress female [N39.3] 11/24/2014 HPV test positive [[id number]] 11/24/2014 Alcohol dependence in remission (HCC) [F10.21] [...] Encounter Status:Closed by CAITLIN OBRIEN on 03/06/25 [facility] CNPN Telephone (GASTMN) GRACIE BANUELOS ([id number]) 1965 F Date Time Provider Department 03/06/25 JUAN SENIOR During your visit today, we recorded the following information about you: Isis Gil 03/06/2025 9:10 AM Signed Gracie calling #[phone] Patient is calling regarding wanting to speak [...] Date Reviewed: 01/13/2025 Reviewed by: Soila Easton APRN.BOX TOE MAKER - Fully Assessed Reason for Visit: Patient Question [0513] Cmt: Questions Prior to ERCP Prescriptions as [...] (REMERON) 45 mg tablet Prescribed by Dr. Astrieka. - multivitamin tablet Take 1 tablet by [...] stress female [N39.3] 11/24/2014 HPV test positive [[id number]] 11/24/2014 Alcohol dependence in remission (HCC) [F10.21] [...] of co (more content not included)... Normal [facility] NURSING PROGon 03-03-2025 NURSING PROG HNO ID: [id number] Author: JAELYN KOTHARI RN Service: ? Author Type: Registered Nurse Type: Nursing Progress Note Filed: 03/03/2025 09:48 Note Text: Attempted to reach the patient at the contact number that they provided [phone] (home) . Unable to speak with patient so without identifying the patient the following information was left on their voice mail: Date of procedure, location and report time A message was left informing the patient/patient branch sales and service representative they must have a responsible adult [...] Number to call with questions or concerns [phone] Number to call to cancel their procedure [phone] Jaelyn Kothari RN Normal [facility] Abdomen/Pelvis W IV Cont ONL Yon 02-26-2025 Abdomen/Pelvis W IV Cont ONLY Normal [facility] Absolute lymphocyte countOrd ered By: Katina Price on 02-26-2025 Lymphocytes Auto (Unsp spec) [#/Vol] 2.50 10*3/uL 0.83-4.51 [facility] Anion gap in Serum or Plasma Ordered By: Katina Price on 02-26-2025 Anion gap [Moles/Vol] 11 mmol/L 5-15 [facility] Automated lymphocyte count a s percentage of total leukocytesOrdered By: Katina Price on 02-26-2025 Lymphocytes/100 WBC Auto (Unsp spec) 20.2 % 19-41 [facility] BUN/creatinine ratioOrdered By: Katina Price on 02-26-2025 Urea nitrogen/Creatinine [Mass ratio] 7.6 mg/mg Low 10-20 [facility] Basophil percentageOrdered B y: Katina Price on 02-26-2025 Basophils/100 WBC (Bld) 1.0 % 0-1 [facility] Bilirubin, totalOrdered By: Katina Price on 02-26-2025 Bilirubin [Mass/Vol] mg/dL 0.00-1.30 [facility] CBC W/Diff, Automatedon 06-0 Absolute Lymph 2.50 X10 3/uL Normal 0.83-4.51 [facility] Comment on above: Performed By: #### L 501.2450, L100.0100, L500.4050 ####[facility] [address] [place], [address] Absolute Neut 7.9 X10 3/uL High 2.0-7.7 [facility] Comment on above: Performed By: #### L 501.2450, L100.0100, L500.4050 ####[facility] [address] [place], [address] Basophils/100 WBC (Bld) 1.0 % Normal 0-1 [facility] Comment on above: Performed By: #### L 501.2450, L100.0100, L500.4050 ####[facility] [address] [place], [address] Eosinophils/100 WBC (Bld) 6.1 % High 0-5 [facility] Comment on above: Performed By: #### L 501.2450, L100.0100, L500.4050 ####[facility] [address] [place], [address] Erythrocyte distribution width (RBC) [Ratio] 14.6 % Normal 11.6-14.6 [facility] Comment on above: Performed By: #### L 501.2450, L100.0100, L500.4050 ####[facility] [address] [place], [address] Hematocrit (Bld) [Volume fraction] 39.8 % Normal 37-47 [facility] Comment on above: Performed By: #### L 501.2450, L100.0100, L500.4050 ####[facility] [address] [place], [address] Hemoglobin (Bld) [Mass/Vol] 12.1 g/dL Normal 12.0-15.0 [facility] Comment on above: Performed By: #### L 501.2450, L100.0100, L500.4050 ####[facility] [address] [place], [address] IG% 0.900 Normal 0.0-0.9 [facility] Comment on above: Result Comment: IG% - Immature Granulocytes (promyelocytes, myelocytes andmetamyelocytes) > 1% indicates that a LEFT SHIFT is Present. Performed By: #### L 501.2450, L100.0100, L500.4050 ####[facility] [address] [place], [address] Lymphocytes/100 WBC (Bld) 20.2 % Normal 19-41 [facility] Comment on above: Performed By: #### L 501.2450, L100.0100, L500.4050 ####[facility] [address] [place], [address] MCH (RBC) [Entitic mass] 26.8 pg Low 27.0-32.0 [facility] Comment on above: Performed By: #### L 501.2450, L100.0100, L500.4050 ####[facility] [address] [place], [address] MCHC (RBC) [Mass/Vol] 30.4 g/dL Low 32-36 [facility] Comment on above: Performed By: #### L 501.2450, L100.0100, L500.4050 ####[facility] [address] [place], [address] MCV (RBC) [Entitic vol] 88.2 fL Normal 81-99 [facility] Comment on above: Performed By: #### L 501.2450, L100.0100, L500.4050 ####[facility] [address] [place], [address] Monocytes/100 WBC (Bld) 8.2 % Normal 0-10 [facility] Comment on above: Performed By: #### L 501.2450, L100.0100, L500.4050 ####[facility] [address] [place], [address] Neutrophils/100 WBC (Bld) 63.6 % Normal 47-70 [facility] Comment on above: Performed By: #### L 501.2450, L100.0100, L500.4050 ####[facility] [address] [place], [address] Nucleated RBC (Bld) [#/Vol] 0 10*3/uL Normal 0-5 [facility] Comment on above: Performed By: #### L 501.2450, L100.0100, L500.4050 ####[facility] [address] [place], [address] Platelet mean volume (Bld) [Entitic vol] 10.6 fL Normal 6.2-12.0 [facility] Comment on above: Performed By: #### L 501.2450, L100.0100, L500.4050 ####[facility] [address] [place], [address] Platelets (Bld) [#/Vol] 293 10*3/uL Normal 150-450 [facility] Comment on above: Performed By: #### L 501.2450, L100.0100, L500.4050 ####[facility] [address] [place], [address] RBC (Bld) [#/Vol] 4.51 10*6/uL Normal 4.2-5.4 [facility] Comment on above: Performed By: #### L 501.2450, L100.0100, L500.4050 ####[facility] [address] [place], [address] RDW SD 46.9 fl High 35.1-43.9 [facility] Comment on above: Performed By: #### L 501.2450, L100.0100, L500.4050 ####[facility] [address] [place], [address] WBC (Bld) [#/Vol] 12.4 10*3/uL High 4.4-11.0 [facility] Comment on above: Performed By: #### L 501.2450, L100.0100, L500.4050 ####[facility] [address] [place], [address] Carbon dioxide, total [Moles /volume] in Central venous bloodOrdered By: Katina Price on 02-26-2025 CO2 [Moles/Vol] 30.6 mmol/L 21.0-32.0 [facility] Chloride assayOrdered By: Tyson Price on 02-26-2025 Chloride [Moles/Vol] 99 mmol/L 98-108 [facility] Comprehensive Metabolic Prof ilon 02-26-2025 Albumin [Mass/Vol] 4.1 g/dL Normal 3.4-4.8 [facility] Comment on above: Performed By: #### L 501.2450, L100.0100, L500.4050 ####[facility] [address] [place], [address] Albumin/Globulin [Mass ratio] 1.3 {ratio} Normal 0.9-2.4 [facility] Comment on above: Performed By: #### L 501.2450, L100.0100, L500.4050 ####[facility] [address] [place], [address] ALK PHOS 113 U/L High 35-104 [facility] Comment on above: Performed By: #### L 501.2450, L100.0100, L500.4050 ####[facility] [address] [place], [address] ALT [Catalytic activity/Vol] 10 U/L Normal <=34 [facility] Comment on above: Performed By: #### L 501.2450, L100.0100, L500.4050 ####[facility] [address] [place], [address] AST [Catalytic activity/Vol] 17 U/L Normal <=31 [facility] Comment on above: Performed By: #### L 501.2450, L100.0100, L500.4050 ####[facility] [address] [place], [address] BUN/CRE 7.6 RATIO Low 10-20 [facility] Comment on above: Performed By: #### L 501.2450, L100.0100, L500.4050 ####[facility] [address] [place], [address] Calcium [Mass/Vol] 9.5 mg/dL Normal 7.6-11.0 [facility] Comment on above: Performed By: #### L 501.2450, L100.0100, L500.4050 ####[facility] [address] [place], [address] Chloride [Moles/Vol] 99 mmol/L Normal 98-108 [facility] Comment on above: Performed By: #### L 501.2450, L100.0100, L500.4050 ####[facility] [address] [place], [address] CO2 [Moles/Vol] 30.6 mmol/L Normal 21.0-32.0 [facility] Comment on above: Performed By: #### L 501.2450, L100.0100, L500.4050 ####[facility] [address] [place], [address] Creatinine [Mass/Vol] 0.82 mg/dL Normal 0.70-1.20 [facility] Comment on above: Performed By: #### L 501.2450, L100.0100, L500.4050 ####[facility] [address] [place], [address] ECRCL 59.60 ml/min Normal 50-250 [facility] Comment on above: Performed By: #### L 501.2450, L100.0100, L500.4050 ####[facility] [address] [place], [address] GAP 11 Normal 5-15 [facility] Comment on above: Performed By: #### L 501.2450, L100.0100, L500.4050 ####[facility] [address] [place], [address] GFR/1.73 sq M.predicted among non-blacks MDRD (S/P/Bld) [Vol rate/Area] 81 mL/min/{1.73_m2} Normal >60 [facility] Comment on above: Result Comment: mL/m in/1.73m2 CKD-EPI Creatinine Equation (2020) Performed By: #### L 501.2450, L100.0100, L500.4050 ####[facility] [address] [place], [address] Globulin (S) [Mass/Vol] 3.1 g/dL Normal 2.2-4.2 [facility] Comment on above: Performed By: #### L 501.2450, L100.0100, L500.4050 ####[facility] [address] [place], [address] Glucose [Mass/Vol] 83 mg/dL Normal 70-99 [facility] Comment on above: Performed By: #### L 501.2450, L100.0100, L500.4050 ####[facility] [address] [place], [address] Potassium [Moles/Vol] 4.1 mmol/L Normal 3.3-5.1 [facility] Comment on above: Performed By: #### L 501.2450, L100.0100, L500.4050 ####[facility] [address] [place], [address] Sodium [Moles/Vol] 140 mmol/L Normal 133-145 [facility] Comment on above: Performed By: #### L 501.2450, L100.0100, L500.4050 ####[facility] [address] [place], [address] T BILI < 0.15 Normal 0.00-1.30 [facility] Comment on above: Performed By: #### L 501.2450, L100.0100, L500.4050 ####[facility] [address] [place], [address] T PROT 7.2 g/dL Normal 5.9-8.4 [facility] Comment on above: Performed By: #### L 501.2450, L100.0100, L500.4050 ####[facility] [address] [place], [address] Urea nitrogen [Mass/Vol] 6 mg/dL Normal 4-19 [facility] Comment on above: Performed By: #### L 501.2450, L100.0100, L500.4050 ####[facility] [address] [place], [address] Emergency Department Summary on 02-26-2025 Emergency Department Summary Normal [facility] Eosinophil percentageOrdered By: Katina Price on 06-01-2025 Eosinophils/100 WBC (Bld) 6.1 % High 0-5 [facility] Erythrocyte distribution wid th ratioOrdered By: Katina Price on 02-26-2025 Erythrocyte distribution width (RBC) [Ratio] 14.6 % 11.6-14.6 [facility] Erythrocyte distribution wid th standard deviationOrdered By: Katina Price on 02-26-2025 Erythrocyte distribution width (RBC) [Ratio] 46.9 fl High 35.1-43.9 [facility] Glomerular filtration rate ( GFR) estimation/1.73 sq m using serum, plasma, or whole bOrdered By: Katina Price on 02-26-2025 GFR/1.73 sq M.predicted among non-blacks MDRD (S/P/Bld) [Vol rate/Area] 81 mL/min/{1.73_m2} >60 [facility] Hematocrit Auto (Bld) [Volum e fraction]Ordered By: Katina Pirce on 02-26-2025 Hematocrit (Bld) [Volume fraction] 39.8 % 37-47 [facility] Hemoglobin measurementOrdere d By: Katina Price on 02-26-2025 Hemoglobin (Bld) [Mass/Vol] 12.1 g/dL 12.0-15.0 [facility] Immature granulocytes/100 WB C Auto (Bld)Ordered By: Katina Price on 02-26-2025 Immature granulocytes/100 WBC (Bld) 0.900 % 0.0-0.9 [facility] Lipaseon 02-26-2025 Lipase [Catalytic activity/Vol] 45 U/L Normal 13-75 [facility] Comment on above: Result Comment: Jenny capellan note:LIPASE revised reference range effective 23.New Lipase methodology. Expected to produce lower valuesthan the previous assay method.NEW Reference Range: 13 - 75 U/L Performed By: #### L 501.2450, L100.0100, L500.4050 ####[facility] [address] [place], [address] MCV (mean corpuscular volume ) determinationOrdered By: Katina Price on 02-26-2025 MCV (RBC) [Entitic vol] 88.2 fL 81-99 [facility] Mean corpuscular hemoglobin (MCH) determinationOrdered By: Katina Price on 02-26-2025 MCH (RBC) [Entitic mass] 26.8 pg Low 27.0-32.0 [facility] Monocyte percentageOrdered B y: Katina Price on 02-26-2025 Monocytes/100 WBC (Bld) 8.2 % 0-10 [facility] Neutrophil percentageOrdered By: Katina Price on 02-26-2025 Neutrophils/100 WBC (Bld) 63.6 % 47-70 [facility] No Panel InformationOrdered By: Katina Price on 02-26-2025 17 U/L <32 [facility] Platelet countOrdered By: Tyson Price on 02-26-2025 Platelets (Bld) [#/Vol] 293 10*3/uL 150-450 [facility] Potassium measurement (mass/ volume)Ordered By: Katina Price on 02-26-2025 Potassium (Unsp spec) [Mass/Vol] 4.1 mmol/L 3.3-5.1 [facility] RBC Auto (Bld) [#/Vol]Ordere d By: Katina Price on 02-26-2025 RBC (Bld) [#/Vol] 4.51 10*6/uL 4.2-5.4 [facility] Serum creatinine measurement (mass/volume)Ordered By: Katina Price on 02-26-2025 Creatinine [Mass/Vol] 0.82 mg/dL 0.70-1.20 [facility] Serum globulin measurementOr dered By: Katina Price on 02-26-2025 Globulin (S) [Mass/Vol] 3.1 g/dL 2.2-4.2 [facility] Serum glucose measurement (m ass/volume)Ordered By: Katina Price on 02-26-2025 Glucose [Mass/Vol] 83 mg/dL 70-99 [facility] Serum or plasma alanine pimentel otransferase (ALT) measurementOrdered By: Katina Price on 02-26-2025 ALT [Catalytic activity/Vol] 10 U/L <35 [facility] Serum or plasma albumin esthela urement (mass/volume)Ordered By: Katina Price on 02-26-2025 Albumin [Mass/Vol] 4.1 g/dL 3.4-4.8 [facility] Serum or plasma albumin/glob ulin mass ratioOrdered By: Katina Price on 02-26-2025 Albumin/Globulin [Mass ratio] 1.3 {ratio} 0.9-2.4 [facility] Serum or plasma alkaline jose sphatase measurementOrdered By: Katina Price on 02-26-2025 ALP [Catalytic activity/Vol] 113 U/L High 35-104 [facility] Serum or plasma calcium esthela urement (mass/volume)Ordered By: Katina Price on 02-26-2025 Calcium [Mass/Vol] 9.5 mg/dL 7.6-11.0 [facility] Serum or plasma urea nitroge n measurement (mass/volume)Ordered By: Katina Price on 02-26-2025 Urea nitrogen [Mass/Vol] 6 mg/dL 4-19 [facility] Sodium levelOrdered By: Katina Price on 02-26-2025 Sodium [Moles/Vol] 140 mmol/L 133-145 [facility] Total proteinOrdered By: Valeria Price on 02-26-2025 Protein [Mass/Vol] 7.2 g/dL 5.9-8.4 [facility] White blood cell (WBC) count Ordered By: Katina Price on 02-26-2025 WBC (Bld) [#/Vol] 12.4 10*3/uL High 4.4-11.0 [facility] Pulmonary Visit Reporton Pulmonary Visit Report Normal [facility] 12 Lead EKGon 01-27-2025 12 Lead EKG Normal [facility] Absolute lymphocyte countOrd ered By: Franco Inman on 01-27-2025 Lymphocytes Auto (Unsp spec) [#/Vol] 2.62 10*3/uL 0.83-4.51 [facility] Anion gap in Serum or Plasma Ordered By: Franco Inman on 01-27-2025 Anion gap [Moles/Vol] 11 mmol/L 5-15 [facility] Automated blood erythrocyte countOrdered By: Franco Inman on 01-27-2025 RBC (Bld) [#/Vol] 4.32 10*6/uL Normal 4.2-5.4 [facility] Comment on above: Performed By: #### L 100.0100 ####[facility] [address] [place], [place], [address] Automated blood hematocrit ( percentage)Ordered By: Franco Inman on 01-27-2025 Hematocrit (Bld) [Volume fraction] 37.5 % Normal 37-47 [facility] Comment on above: Performed By: #### L 100.0100 ####[facility] [address] [place], [place], [address] Automated lymphocyte count a s percentage of total leukocytesOrdered By: Franco Inman on 01-27-2025 Lymphocytes/100 WBC Auto (Unsp spec) 16.8 % Low 19-41 [facility] BUN/creatinine ratioOrdered By: Franco Inman on 01-27-2025 Urea nitrogen/Creatinine [Mass ratio] 7.1 mg/mg Low 10-20 [facility] Basophil percentageOrdered B y: Franco Inman on 01-27-2025 Basophils/100 WBC (Bld) 1.0 % Normal 0-1 [facility] Comment on above: Performed By: #### L 100.0100 ####[facility] [address] [place], [place], [address] Bilirubin, totalOrdered By: Franco Inman on 01-27-2025 Bilirubin [Mass/Vol] mg/dL 0.00-1.30 [facility] CBC W/Diff, Automatedon Absolute Lymph 2.62 X10 3/uL Normal 0.83-4.51 [facility] Comment on above: Performed By: #### L 100.0100 ####[facility] [address] [place], [place], [phone]) Absolute Neut 11.0 X10 3/uL High 2.0-7.7 [facility] Comment on above: Performed By: #### L 100.0100 ####[facility] [address] [place], [address] IG% 0.800 Normal 0.0-0.9 [facility] Comment on above: Result Comment: IG% - Immature Granulocytes (promyelocytes, myelocytes andmetamyelocytes) > 1% indicates that a LEFT SHIFT is Present. Performed By: #### L 100.0100 ####[facility] [address] [place], [address] Lymphocytes/100 WBC (Bld) 16.8 % Low 19-41 [facility] Comment on above: Performed By: #### L 100.0100 ####[facility] [address] [place], [address] MCHC (RBC) [Mass/Vol] 30.7 g/dL Low 32-36 [facility] Comment on above: Performed By: #### L 100.0100 ####[facility] [address] [place], [address] Nucleated RBC (Bld) [#/Vol] 0 10*3/uL Normal 0-5 [facility] Comment on above: Performed By: #### L 100.0100 ####[facility] [address] [place], [address] Platelet mean volume (Bld) [Entitic vol] 9.8 fL Normal 6.2-12.0 [facility] Comment on above: Performed By: #### L 100.0100 ####[facility] [address] [place], [address] RDW SD 46.0 fl High 35.1-43.9 [facility] Comment on above: Performed By: #### L 100.0100 ####[facility] [address] [place], [address] Carbon dioxide, total [Moles /volume] in Central venous bloodOrdered By: Franco Inman on 01-27-2025 CO2 [Moles/Vol] 27.5 mmol/L Normal 21.0-32.0 [facility] Comment on above: Performed By: #### L 500.4050, L501.2450 ####[facility] [address] [place], [address] Chest PA and Lateralon 01-27 Chest PA and Lateral Normal [facility] Chloride assayOrdered By: Leo Inman on 01-27-2025 Chloride [Moles/Vol] 98 mmol/L Normal 98-108 [facility] Comment on above: Performed By: #### L 500.4050, L501.2450 ####[facility] [address] [place], [address] Comprehensive Metabolic Prof ilon 01-27-2025 ALK PHOS 108 U/L High 35-104 [facility] Comment on above: Performed By: #### L 500.4050, L501.2450 ####[facility] [address] [place], [address] AST [Catalytic activity/Vol] 19 U/L Normal <=31 [facility] Comment on above: Performed By: #### L 500.4050, L501.2450 ####[facility] [address] [place], [address] BUN/CRE 7.1 RATIO Low 10-20 [facility] Comment on above: Performed By: #### L 500.4050, L501.2450 ####[facility] [address] [place], [address] ECRCL 65.16 ml/min Normal 50-250 [facility] Comment on above: Performed By: #### L 500.4050, L501.2450 ####[facility] [address] [place], [address] GAP 11 Normal 5-15 [facility] Comment on above: Performed By: #### L 500.4050, L501.2450 ####[facility] [address] [place], [address] Potassium [Moles/Vol] 4.3 mmol/L Normal 3.3-5.1 [facility] Comment on above: Performed By: #### L 500.4050, L501.2450 ####[facility] [address] [place], [address] T BILI < 0.15 Normal 0.00-1.30 [facility] Comment on above: Performed By: #### L 500.4050, L501.2450 ####[facility] [address] [place], [address] T PROT 7.1 g/dL Normal 5.9-8.4 [facility] Comment on above: Performed By: #### L 500.4050, L501.2450 ####[facility] [address] [place], [address] Emergency Department Summary on 01-27-2025 Emergency Department Summary Normal [facility] Eosinophil percentageOrdered By: Franco Inman on 01-27-2025 Eosinophils/100 WBC (Bld) 5.3 % High 0-5 [facility] Comment on above: Performed By: #### L 100.0100 ####[facility] [address] [place], [address] Erythrocyte distribution wid th ratioOrdered By: Franco Inman on 01-27-2025 Erythrocyte distribution width (RBC) [Ratio] 14.5 % Normal 11.6-14.6 [facility] Comment on above: Performed By: #### L 100.0100 ####[facility] [address] [place], [address] Erythrocyte distribution wid th standard deviationOrdered By: Franco Inman on 01-27-2025 Erythrocyte distribution width (RBC) [Ratio] 46.0 fl High 35.1-43.9 [facility] Glomerular filtration rate ( GFR) estimation/1.73 sq m using serum, plasma, or whole bOrdered By: Franco Inman on 01-27-2025 GFR/1.73 sq M.predicted among non-blacks MDRD (S/P/Bld) [Vol rate/Area] 90 mL/min/{1.73_m2} Normal >60 [facility] Comment on above: Result Comment: mL/m in/1.73m2 CKD-EPI Creatinine Equation (2020) Performed By: #### L 500.4050, L501.2450 ####[facility] [address] [place], [address] Hemoglobin measurementOrdere d By: Franco Inman on 01-27-2025 Hemoglobin (Bld) [Mass/Vol] 11.5 g/dL Low 12.0-15.0 [facility] Comment on above: Performed By: #### L 100.0100 ####[facility] [address] [place], [address] Immature granulocytes/100 WB C Auto (Bld)Ordered By: Franco Inman on 01-27-2025 Immature granulocytes/100 WBC (Bld) 0.800 % 0.0-0.9 [facility] Lipaseon 01-27-2025 Lipase [Catalytic activity/Vol] 32 U/L Normal 13-75 [facility] Comment on above: Result Comment: Jenny capellan note:LIPASE revised reference range effective 23.New Lipase methodology. Expected to produce lower valuesthan the previous assay method.NEW Reference Range: 13 - 75 U/L Performed By: #### L 500.4050, L501.2450 ####[facility] [address] [place], [address] MCV (mean corpuscular volume ) determinationOrdered By: Franco Inman on 01-27-2025 MCV (RBC) [Entitic vol] 86.8 fL Normal 81-99 [facility] Comment on above: Performed By: #### L 100.0100 ####[facility] [address] [place], [place], [address] Mean corpuscular hemoglobin (MCH) determinationOrdered By: Franco Inman on 01-27-2025 MCH (RBC) [Entitic mass] 26.6 pg Low 27.0-32.0 [facility] Comment on above: Performed By: #### L 100.0100 ####[facility] [address] [place], [place], [address] Monocyte percentageOrdered B y: Franco Inman on 01-27-2025 Monocytes/100 WBC (Bld) 5.9 % Normal 0-10 [facility] Comment on above: Performed By: #### L 100.0100 ####[facility] [address] [place], [place], [address] Neutrophil percentageOrdered By: Franco Inman on 01-27-2025 Neutrophils/100 WBC (Bld) 70.2 % High 47-70 [facility] Comment on above: Performed By: #### L 100.0100 ####[facility] [address] [place], [place], [address] No Panel InformationOrdered By: Franco Inman on 01-27-2025 19 U/L <32 [facility] Platelet countOrdered By: Leo Inman on 01-27-2025 Platelets (Bld) [#/Vol] 377 10*3/uL Normal 150-450 [facility] Comment on above: Performed By: #### L 100.0100 ####[facility] [address] [place], [address] Potassium measurement (mass/ volume)Ordered By: Franco Inman on 01-27-2025 Potassium (Unsp spec) [Mass/Vol] 4.3 mmol/L 3.3-5.1 [facility] Serum creatinine measurement (mass/volume)Ordered By: Franco Inman on 01-27-2025 Creatinine [Mass/Vol] 0.75 mg/dL Normal 0.70-1.20 [facility] Comment on above: Performed By: #### L 500.4050, L501.2450 ####[facility] [address] [place], [address] Serum globulin measurementOr dered By: Franco Inman on 01-27-2025 Globulin (S) [Mass/Vol] 3.1 g/dL Normal 2.2-4.2 [facility] Comment on above: Performed By: #### L 500.4050, L501.2450 ####[facility] [address] [place], [address] Serum glucose measurement (m ass/volume)Ordered By: Franco Inman on 01-27-2025 Glucose [Mass/Vol] 130 mg/dL High 70-99 [facility] Comment on above: Performed By: #### L 500.4050, L501.2450 ####[facility] [address] [place], [address] Serum or plasma alanine pimentel otransferase (ALT) measurementOrdered By: Franco Inman on 01-27-2025 ALT [Catalytic activity/Vol] 13 U/L Normal <=34 [facility] Comment on above: Performed By: #### L 500.4050, L501.2450 ####[facility] [address] [place], [address] Serum or plasma albumin esthela urement (mass/volume)Ordered By: Franco Inman on 01-27-2025 Albumin [Mass/Vol] 4.0 g/dL Normal 3.4-4.8 [facility] Comment on above: Performed By: #### L 500.4050, L501.2450 ####[facility] [address] [place], [address] Serum or plasma albumin/glob ulin mass ratioOrdered By: Franco Inman on 01-27-2025 Albumin/Globulin [Mass ratio] 1.3 {ratio} Normal 0.9-2.4 [facility] Comment on above: Performed By: #### L 500.4050, L501.2450 ####[facility] [address] [place], [address] Serum or plasma alkaline jose sphatase measurementOrdered By: Franco Inman on 01-27-2025 ALP [Catalytic activity/Vol] 108 U/L High 35-104 [facility] Serum or plasma calcium esthela urement (mass/volume)Ordered By: Franco Inman on 01-27-2025 Calcium [Mass/Vol] 9.2 mg/dL Normal 7.6-11.0 [facility] Comment on above: Performed By: #### L 500.4050, L501.2450 ####[facility] [address] [place], [address] Serum or plasma urea nitroge n measurement (mass/volume)Ordered By: Franco Inman on 01-27-2025 Urea nitrogen [Mass/Vol] 5 mg/dL Normal 4-19 [facility] Comment on above: Performed By: #### L 500.4050, L501.2450 ####[facility] [address] [place], [address] Sodium levelOrdered By: Franco Inman on 01-27-2025 Sodium [Moles/Vol] 137 mmol/L Normal 133-145 [facility] Comment on above: Performed By: #### L 500.4050, L501.2450 ####[facility] [address] [place], [address] Total proteinOrdered By: Ezra Inman on 01-27-2025 Protein [Mass/Vol] 7.1 g/dL 5.9-8.4 [facility] White blood cell (WBC) count Ordered By: Franco Inman on 01-27-2025 WBC (Bld) [#/Vol] 15.6 10*3/uL High 4.4-11.0 [facility] Comment on above: Performed By: #### L 100.0100 ####[facility] [address] [place], [address] CNOVon 01-13-2025 CNOV Office Visit (INTMWS ) GRACIE BANUELOS ([id number]) 1965 F Date Time Provider Department 01/13/25 10:40 AM SOILA EASTON INTMWS During your visit today, we recorded the following information about you: Pulse Respiration Blood pressure Weight 88/minute 16/minute 108/60 62.6 kg Soila Easton APRN.[facility] 01/13/2025 11:33 AM Signed CC: Patient presents with: Recheck: Follow up HPI Gracie Banuelos is a 59 year old female who presents today for gout concerns. Recording using [employer] software for draft documentation of the visit was discussed with the patient/authorized branch sales and service representative; all questions welcomed and answered. Patient/authorized branch sales and service representative agreed to proceed Gout: - Under [...] of months ago asa ordered by her excel analyst. - Denies redness or red streaking; COPD [...] will be in the 90s. States her makeup sales advisor is aware of this. - Concerns about potential need for ventilator post-surgery. - Under care of Dr. Sebastian and Ani at [facility]. - No recent infections, fever, or [...] Stage 3 severe COPD by GOLD classification ([facility]) 2018 Tobacco use greater than 30 years [...] for nausea/ (more content not included)... Normal [facility] CBC W/Diff, Automatedon 12-27 PATH REV Reviewed Normal [facility] Comment on above: Result Comment: SEE REPORT IN PATIENT'S EMR AMENDED REPORT 01/11/25 1354 PATH REV previously reported as: May foll Performed By: #### L 100.0100, L500.2500 ####[facility] [address] [place], [address] PATH REV Reviewed Normal [facility] Comment on above: Result Comment: SEE REPORT IN PATIENT'S EMR AMENDED REPORT 01/11/25 1352 PATH REV previously reported as: May foll Performed By: #### L 100.0100, L500.2500 ####[facility] [address] [place], [address] Performed By: #### L 100.0100 ####[facility] [address] [place], [address] PATH REV Reviewed [facility] Comment on above: Result Comment: SEE REPORT IN PATIENT'S EMR AMENDED REPORT 01/11/25 1342 PATH REV previously reported as: May foll Performed By: #### L 503.7505, L500.2500, L100.0100, L509.7001 ####[facility] [address] [place], [address] Matteo 01-09-2025 CNPN Telephone (INTMWS) GRACIE BANUELOS ([id number]) 1965 F Date Time Provider Department 01/09/25 MISBAH ELKINS INTMWS During your visit today, we recorded the following information about you: Marge Perkins RN 01/09/2025 7:18 PM Signed Pt called in and reports she can get pull ups paid for through [employer]. She states the provider jst has to [...] outside her home. Sent rx to [facility]. FYI: Pt scheduled appt tomorrow with Soila Easton to discuss multiple concerns. CHERELLE Jones Amanda, RN 01/12/2025 1:15 PM Signed Pt has appointment with Soila Easton Phytopathology Teacher on 01/14/24. Allergies As of Date: 01/09/2025 [...] stress female [N39.3] 11/24/2014 HPV test positive [[id number]] 11/24/2014 Alcohol depe (more content not included)... Normal [facility] CBC W/Diff, Automatedon 04-0 PATH REV N/A Normal [facility] Comment on above: Result Comment: AMENDED REPORT 01/04/252142 PATH REV previously reported as: January Performed By: #### L 501.4390, L500.4050, L100.0100 ####[facility] [address] [place], [place], [id number] 12 Lead EKGon 01-01-2025 12 Lead EKG Normal [facility] ALP [Catalytic activity/Vol] Ordered By: Leandro Sanchez on 01-01-2025 Serum or plasma alkaline phosphatase measurement 111 U/L High 35-104 [facility] ALT [Catalytic activity/Vol] Ordered By: Leandro Sanchez on 01-01-2025 Serum or plasma alanine aminotransferase (ALT) measurement 8 U/L <35 [facility] Absolute lymphocyte countOrd ered By: Leandro Sanchez on 01-01-2025 Lymphocytes Auto (Unsp spec) [#/Vol] 3.90 10*3/uL 0.83-4.51 [facility] Absolute neutrophil countOrd ered By: Leandro Sanchez on 01-01-2025 Absolute neutrophil count 8.9 X10^3/uL High 2.0-7.7 [facility] Albumin [Mass/Vol]Ordered By : Leandro Sanchez on 01-01-2025 Serum or plasma albumin measurement (mass/volume) 3.7 g/dL 3.4-4.8 [facility] Albumin/Globulin [Mass ratio ]Ordered By: Leandro Sanchez on 01-01-2025 Serum or plasma albumin/globulin mass ratio 1.2 RATIO 0.9-2.4 [facility] Anion gap [Moles/Vol]Ordered By: Leandro Sanchez on 01-01-2025 Anion gap in Serum or Plasma 11 5-15 [facility] Anion gap in Serum or Plasma Ordered By: Leandro Sanchez on 01-01-2025 Anion gap [Moles/Vol] 11 mmol/L 5-15 [facility] BUN/creatinine ratioOrdered By: Leandro Sanchez on 01-01-2025 Urea nitrogen/Creatinine [Mass ratio] 8.7 mg/mg Low 10-20 [facility] BUN/creatinine ratio 8.7 RATIO Low 10-20 [facility] Bilirubin, totalOrdered By: Leandro Sanchez on 01-01-2025 Bilirubin [Mass/Vol] mg/dL 0.00-1.30 [facility] Bilirubin, total < 0.15 mg/dL 0.00-1.30 [facility] Blood basophils/100 leukocyt esOrdered By: Leandro Sanchez on 01-01-2025 Basophils/100 WBC (Bld) 1 % 0-1 [facility] Blood eosinophils/100 leukoc ytesOrdered By: Leandro Sanchez on 01-01-2025 Eosinophils/100 WBC (Bld) 6 % High 0-5 [facility] Blood lymphocytes/100 leukoc ytesOrdered By: Leandro Sanchez on 01-01-2025 Lymphocytes/100 WBC (Bld) 24 % 19-41 [facility] Blood metamyelocytes/100 scott kocytesOrdered By: Leandro Sanchez on 01-01-2025 Metamyelocytes/100 WBC (Bld) 7 % High 0-1 [facility] Blood metamyelocytes/100 leukocytes 7 % 0-10 [facility] Blood monocytes/100 leukocyt esOrdered By: Leandro Sanchez on 01-01-2025 Monocytes/100 WBC (Bld) 7 % 0-10 [facility] Blood segmented neutrophils/ 100 leukocytesOrdered By: Leandro Sanchez on 01-01-2025 Segmented neutrophils/100 WBC (Bld) 54 % 47-70 [facility] CBC W/Diff, Automatedon PATH REV N/A Normal [facility] Comment on above: Result Comment: AMENDED REPORT 01/01/25 180 PATH REV previously reported as: January Performed By: #### L 500.2500, L100.0100 ####[facility] [address] [place], [address] Calcium [Mass/Vol]Ordered By : Leandro Sanchez on 01-01-2025 Serum or plasma calcium measurement (mass/volume) 9.0 mg/dL 7.6-11.0 [facility] Carbon dioxide, total [Moles /volume] in Central venous bloodOrdered By: Leandro Sanchez on 01-01-2025 CO2 [Moles/Vol] 28.7 mmol/L 21.0-32.0 [facility] Carbon dioxide, total [Moles/volume] in Central venous blood 28.7 mmol/L 21.0-32.0 [facility] Cells counted Molgen (Bld/Ti ss) [#]Ordered By: Leandro Sanchez on 01-01-2025 Total cell count 100 MANUAL DIFF [facility] Chest 1 View (Portable)on Chest 1 View (Portable) Normal [facility] Chloride assayOrdered By: Jose Fostershellygerri on 01-01-2025 Chloride [Moles/Vol] 91 mmol/L Low 98-108 [facility] Chloride assay 91 mmol/L Low 98-108 [facility] Comprehensive Metabolic Prof ilon 01-01-2025 Albumin [Mass/Vol] 3.7 g/dL Normal 3.4-4.8 [facility] Comment on above: Performed By: #### L 501.2450, L500.4050, L100.0100 ####[facility] [address] [place], [address] Albumin/Globulin [Mass ratio] 1.2 {ratio} Normal 0.9-2.4 [facility] Comment on above: Performed By: #### L 501.2450, L500.4050, L100.0100 ####[facility] [address] [place], [address] ALK PHOS 111 U/L High 35-104 [facility] Comment on above: Performed By: #### L 501.2450, L500.4050, L100.0100 ####[facility] [address] [place], [address] ALT [Catalytic activity/Vol] 8 U/L Normal <=34 [facility] Comment on above: Performed By: #### L 501.2450, L500.4050, L100.0100 ####[facility] [address] [place], [address] AST [Catalytic activity/Vol] 13 U/L Normal <=31 [facility] Comment on above: Performed By: #### L 501.2450, L500.4050, L100.0100 ####[facility] [address] [place], [address] BUN/CRE 8.7 RATIO Low 10-20 [facility] Comment on above: Performed By: #### L 501.2450, L500.4050, L100.0100 ####[facility] [address] [place], [address] Calcium [Mass/Vol] 9.0 mg/dL Normal 7.6-11.0 [facility] Comment on above: Performed By: #### L 501.2450, L500.4050, L100.0100 ####[facility] [address] [place], [address] Chloride [Moles/Vol] 91 mmol/L Low 98-108 [facility] Comment on above: Performed By: #### L 501.2450, L500.4050, L100.0100 ####[facility] [address] [place], [address] CO2 [Moles/Vol] 28.7 mmol/L Normal 21.0-32.0 [facility] Comment on above: Performed By: #### L 501.2450, L500.4050, L100.0100 ####[facility] [address] [place], [address] Creatinine [Mass/Vol] 0.76 mg/dL Normal 0.70-1.20 [facility] Comment on above: Performed By: #### L 501.2450, L500.4050, L100.0100 ####[facility] [address] [place], [address] ECRCL 69.70 ml/min Normal 50-250 [facility] Comment on above: Performed By: #### L 501.2450, L500.4050, L100.0100 ####[facility] [address] [place], [address] GAP 11 Normal 5-15 [facility] Comment on above: Performed By: #### L 501.2450, L500.4050, L100.0100 ####[facility] [address] [place], [address] GFR/1.73 sq M.predicted among non-blacks MDRD (S/P/Bld) [Vol rate/Area] 89 mL/min/{1.73_m2} Normal >60 [facility] Comment on above: Result Comment: mL/m in/1.73m2 CKD-EPI Creatinine Equation (2020) Performed By: #### L 501.2450, L500.4050, L100.0100 ####[facility] [address] [place], [address] Globulin (S) [Mass/Vol] 3.2 g/dL Normal 2.2-4.2 [facility] Comment on above: Performed By: #### L 501.2450, L500.4050, L100.0100 ####[facility] [address] [place], [address] Glucose [Mass/Vol] 111 mg/dL High 70-99 [facility] Comment on above: Performed By: #### L 501.2450, L500.4050, L100.0100 ####[facility] [address] [place], [address] Potassium [Moles/Vol] 4.0 mmol/L Normal 3.3-5.1 [facility] Comment on above: Performed By: #### L 501.2450, L500.4050, L100.0100 ####[facility] [address] [place], [address] Sodium [Moles/Vol] 130 mmol/L Low 133-145 [facility] Comment on above: Performed By: #### L 501.2450, L500.4050, L100.0100 ####[facility] [address] [place], [address] T BILI < 0.15 Normal 0.00-1.30 [facility] Comment on above: Performed By: #### L 501.2450, L500.4050, L100.0100 ####[facility] [address] [place], [address] T PROT 6.9 g/dL Normal 5.9-8.4 [facility] Comment on above: Performed By: #### L 501.2450, L500.4050, L100.0100 ####[facility] [address] [place], [address] Urea nitrogen [Mass/Vol] 7 mg/dL Normal 4-19 [facility] Comment on above: Performed By: #### L 501.2450, L500.4050, L100.0100 ####[facility] [address] [place], [address] Creatinine [Mass/Vol]Ordered By: Leandro Sanchez on 01-01-2025 Serum creatinine measurement (mass/volume) 0.76 mg/dL 0.70-1.20 [facility] Emergency Department Summary on 01-01-2025 Emergency Department Summary Normal [facility] Eosinophils/100 WBC (Bld)Ord ered By: Leandro Sanchez on 01-01-2025 Blood eosinophils/100 leukocytes 6 % High 0-5 [facility] Erythrocyte distribution wid th (RBC) [Ratio]Ordered By: Leandro Sanchez on 01-01-2025 Erythrocyte distribution width ratio 15.2 % High 11.6-14.6 [facility] Erythrocyte distribution width standard deviation 47.7 fl High 35.1-43.9 [facility] Erythrocyte distribution wid th ratioOrdered By: Leandro Sanchez on 01-01-2025 Erythrocyte distribution width (RBC) [Ratio] 15.2 % High 11.6-14.6 [facility] Erythrocyte distribution wid th standard deviationOrdered By: Leandro Sanchez on 01-01-2025 Erythrocyte distribution width (RBC) [Ratio] 47.7 fl High 35.1-43.9 [facility] Estimation of creatinine binu aranceOrdered By: Leandro Sanchez on 01-01-2025 Estimation of creatinine clearance 69.70 ml/min 50-250 [facility] GFR/1.73 sq M.predicted gregory g non-blacks MDRD (S/P/Bld) [Vol rate/Area]Ordered By: Leandor Sanchez on 01-01-2025 Glomerular filtration rate (GFR) estimation/1.73 sq m using serum, plasma, or whole b 89 >60 [facility] Glomerular filtration rate ( GFR) estimation/1.73 sq m using serum, plasma, or whole bOrdered By: Leandro Sanhcez on 01-01-2025 GFR/1.73 sq M.predicted among non-blacks MDRD (S/P/Bld) [Vol rate/Area] 89 mL/min/{1.73_m2} >60 [facility] Glucose [Mass/Vol]Ordered By : Leandro Sanchez on 01-01-2025 Serum glucose measurement (mass/volume) 111 mg/dL High 70-99 [facility] Hematocrit Auto (Bld) [Volum e fraction]Ordered By: Leandro Sanchez on 01-01-2025 Hematocrit (Bld) [Volume fraction] 39.1 % 37-47 [facility] Automated blood hematocrit (percentage) 39.1 % 37-47 [facility] Hemoglobin measurementOrdere d By: Leandro Sanchez on 01-01-2025 Hemoglobin (Bld) [Mass/Vol] 12.0 g/dL 12.0-15.0 [facility] Hemoglobin measurement 12.0 g/dL 12.0-15.0 [facility] Lipaseon 01-01-2025 Lipase [Catalytic activity/Vol] 75 U/L Normal 13-75 [facility] Comment on above: Result Comment: Jenny capellan note:LIPASE revised reference range effective 23.New Lipase methodology. Expected to produce lower valuesthan the previous assay method.NEW Reference Range: 13 - 75 U/L Performed By: #### L 501.2450, L500.4050, L100.0100 ####[facility] [address] [place], [address] Lipase measurementOrdered By : Leandro Sanchez on 01-01-2025 Lipase measurement 75 U/L 13-75 [facility] Lymphocytes Auto (Unsp spec) [#/Vol]Ordered By: Leandro Sanchez on 01-01-2025 Absolute lymphocyte count 3.90 X10^3/uL 0.83-4.51 [facility] Lymphocytes/100 WBC (Bld)Ord ered By: Leandro Sanchez on 01-01-2025 Blood lymphocytes/100 leukocytes 24 % 19-41 [facility] MCV (RBC) [Entitic vol]Order ed By: Leandro Sanchez on 01-01-2025 MCV (mean corpuscular volume) determination 86.7 fL 81-99 [facility] MCV (mean corpuscular volume ) determinationOrdered By: Leandro Sanchez on 01-01-2025 MCV (RBC) [Entitic vol] 86.7 fL 81-99 [facility] Mean corpuscular hemoglobin (MCH) determinationOrdered By: Leandro Sanchez on 01-01-2025 MCH (RBC) [Entitic mass] 26.6 pg Low 27.0-32.0 [facility] Mean corpuscular hemoglobin (MCH) determination 26.6 pg Low 27.0-32.0 [facility] Mean corpuscular hemoglobin concentration (MCHC) determinationOrdered By: Leandro Sanchez on 01-01-2025 Mean corpuscular hemoglobin concentration (MCHC) determination 30.7 g/dL Low 32-36 [facility] Mean platelet volume determi nationOrdered By: Leandro Sanchez on 01-01-2025 Mean platelet volume determination 8.9 fl 6.2-12.0 [facility] Microcytosis evaluation pane lOrdered By: Leandro Sanchez on 01-01-2025 Microcytosis evaluation panel 1+ [facility] Myelocyte %Ordered By: Leandro Sanchez on 01-01-2025 Myelocyte % 1 % 0-1 [facility] Neutrophil percentageOrdered By: Leandro Sanchez on 01-01-2025 Neutrophil percentage Not Reportable [facility] No Panel InformationOrdered By: Leandro Sanchez on 01-01-2025 13 U/L <32 [facility] Pathologist review Geovany (Unsp spec) [Interp]Ordered By: Leandro Sanchez on 01-01-2025 Review by pathologist Tiesha gotti [facility] Platelet countOrdered By: Jsoe Sanchez on 01-01-2025 Platelets (Bld) [#/Vol] 553 10*3/uL High 150-450 [facility] Platelet count 553 K/mm3 High 150-450 [facility] Potassium (Unsp spec) [Mass/ Vol]Ordered By: Leandro Sanchez on 01-01-2025 Potassium measurement (mass/volume) 4.0 mmol/L 3.3-5.1 [facility] Potassium measurement (mass/ volume)Ordered By: Leandro Sanchez on 01-01-2025 Potassium (Unsp spec) [Mass/Vol] 4.0 mmol/L 3.3-5.1 [facility] RBC Auto (Bld) [#/Vol]Ordere d By: Leandro Sanchez on 01-01-2025 RBC (Bld) [#/Vol] 4.51 10*6/uL 4.2-5.4 [facility] Automated blood erythrocyte count 4.51 M/mm3 4.2-5.4 [facility] Review by pathologistOrdered By: Leandro Sanchez on 01-01-2025 Pathologist review Geovany (Unsp spec) [Interp] N/A [facility] Segmented neutrophils/100 WB C (Bld)Ordered By: Leandro Sanchez on 01-01-2025 Blood segmented neutrophils/100 leukocytes 54 % 47-70 [facility] Serum creatinine measurement (mass/volume)Ordered By: Leandro Snachez on 01-01-2025 Creatinine [Mass/Vol] 0.76 mg/dL 0.70-1.20 [facility] Serum globulin measurementOr dered By: Leandro Sanchez on 01-01-2025 Globulin (S) [Mass/Vol] 3.2 g/dL 2.2-4.2 [facility] Serum globulin measurement 3.2 g/dL 2.2-4.2 [facility] Serum glucose measurement (m ass/volume)Ordered By: Leandro Sanchez on 01-01-2025 Glucose [Mass/Vol] 111 mg/dL High 70-99 [facility] Serum or plasma alanine pimentel otransferase (ALT) measurementOrdered By: Leandro Sanchez on 01-01-2025 ALT [Catalytic activity/Vol] 8 U/L <35 [facility] Serum or plasma albumin esthela urement (mass/volume)Ordered By: Leandro Sanchez on 01-01-2025 Albumin [Mass/Vol] 3.7 g/dL 3.4-4.8 [facility] Serum or plasma albumin/glob ulin mass ratioOrdered By: Leandro Sanchez on 01-01-2025 Albumin/Globulin [Mass ratio] 1.2 {ratio} 0.9-2.4 [facility] Serum or plasma alkaline jose sphatase measurementOrdered By: Leandro Sanchez on 01-01-2025 ALP [Catalytic activity/Vol] 111 U/L High 35-104 [facility] Serum or plasma calcium esthela urement (mass/volume)Ordered By: Leandro Sanchez on 01-01-2025 Calcium [Mass/Vol] 9.0 mg/dL 7.6-11.0 [facility] Serum or plasma urea nitroge n measurement (mass/volume)Ordered By: Leandro Sanchez on 01-01-2025 Urea nitrogen [Mass/Vol] 7 mg/dL - [facility] Sodium levelOrdered By: Leandro Sanchez on 01-01-2025 Sodium [Moles/Vol] 130 mmol/L Low 133-145 [facility] Sodium level 130 mmol/L Low 133-145 [facility] Total cell countOrdered By: Leandro Sanchez on 01-01-2025 Cells counted Molgen (Bld/Tiss) [#] 100 MANUAL DIFF [facility] Total proteinOrdered By: Bhargavi Sanchez on 01-01-2025 Protein [Mass/Vol] 6.9 g/dL 5.9-8.4 [facility] Total protein 6.9 g/dL 5.9-8.4 [facility] Urea nitrogen [Mass/Vol]Orde red By: Leandro Sanchez on 01-01-2025 Serum or plasma urea nitrogen measurement (mass/volume) 7 mg/dL 4-19 [facility] White blood cell (WBC) count Ordered By: Leandro Sanchez on 01-01-2025 WBC (Bld) [#/Vol] 16.5 10*3/uL High 4.4-11.0 [facility] White blood cell (WBC) count 16.5 K/mm3 High 4.4-11.0 [facility] Matteo 12-27-2024 CNPNathalia Telephone (DDQ) GRACIE BANUELOS ([id number]) 1965 F Date Time Provider Department 12/27/24 JUAN SENIOR DDQ During your visit today, we recorded the [...] AND CT lung screen results scanned in [facility] Juan Abbott LPN 12/28/2024 3:02 PM Signed VM left for Gracie Banuelos to discuss current symptoms Offered to call office for discussion. MCKENNA Le Patricia 12/28/2024 3:14 PM Signed Patient returned call. Can be reached at: [phone] (home) Juan Bloom LPN 12/28/2024 3:45 PM [...] for review. Patient has Pain Management on 4/10 she does have current C/O abdominal pain- I did discuss her taking tylenol, ibuprofen to help with pain- which she states does help a bit, but is wondering if she could get some pain medication until her pain management appointment. I informed her that I would notify Juan Senior as well MCKENNA LeViraj Mgia 01/04/2025 3:16 PM Signed Patient called back. She would like to speak with Juan Senior to touch base. She has a pain management appt at 1:00 tomorrow. [phone] (home) Juan Senior APRN.CNP 01/05/2025 10:42 AM Signed Spoke with patient. She says she is feeling better but still experiencing abdominal pain. 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 Normal [facility] ALP [Catalytic activity/Vol] Ordered By: Mo Velasco on 12-24-2024 Serum or plasma alkaline phosphatase measurement 117 U/L High 35-104 [facility] ALT [Catalytic activity/Vol] Ordered By: Mo Velasco on 12-24-2024 Serum or plasma alanine aminotransferase (ALT) measurement 18 U/L <35 [facility] Absolute lymphocyte countOrd ered By: Mo Velasco on 12-24-2024 Lymphocytes Auto (Unsp spec) [#/Vol] 2.44 10*3/uL 0.83-4.51 [facility] Absolute neutrophil countOrd ered By: Mo Velasco on 12-24-2024 Absolute neutrophil count 14.1 X10^3/uL High 2.0-7.7 [facility] Albumin [Mass/Vol]Ordered By : Mo Velasco on 12-24-2024 Serum or plasma albumin measurement (mass/volume) 3.4 g/dL 3.4-4.8 [facility] Anion gap [Moles/Vol]Ordered By: Mo Velasco on 12-24-2024 Anion gap in Serum or Plasma 13 5-15 [facility] Anion gap in Serum or Plasma Ordered By: Mo Velasco on 12-24-2024 Anion gap [Moles/Vol] 13 mmol/L - [facility] Automated lymphocyte count a s percentage of total leukocytesOrdered By: Mo Velasco on 12-24-2024 Lymphocytes/100 WBC Auto (Unsp spec) 13.4 % Low 19-41 [facility] BUN/creatinine ratioOrdered By: Mo Velasco on 12-24-2024 Urea nitrogen/Creatinine [Mass ratio] 4.2 mg/mg Low 10-20 [facility] BUN/creatinine ratio 4.2 RATIO Low 10-20 [facility] Basic Metabolic Profile (BMP )on 12-24-2024 BUN/CRE 4.2 RATIO Low 10-20 [facility] Comment on above: Performed By: #### L 501.2450, L100.0100, L500.3400, L500.2500 ####[facility] [address] [place], [address] Calcium [Mass/Vol] 9.3 mg/dL Normal 7.6-11.0 [facility] Comment on above: Performed By: #### L 501.2450, L100.0100, L500.3400, L500.2500 ####[facility] [address] [place], [address] Chloride [Moles/Vol] 97 mmol/L Low 98-108 [facility] Comment on above: Performed By: #### L 501.2450, L100.0100, L500.3400, L500.2500 ####[facility] [address] [place], [address] CO2 [Moles/Vol] 28.1 mmol/L Normal 21.0-32.0 [facility] Comment on above: Performed By: #### L 501.2450, L100.0100, L500.3400, L500.2500 ####[facility] [address] [place], [address] Creatinine [Mass/Vol] 0.77 mg/dL Normal 0.70-1.20 [facility] Comment on above: Performed By: #### L 501.2450, L100.0100, L500.3400, L500.2500 ####[facility] [address] [place], [address] ECRCL 63.47 ml/min Normal 50-250 [facility] Comment on above: Performed By: #### L 501.2450, L100.0100, L500.3400, L500.2500 ####[facility] [address] [place], [address] GAP 13 Normal 5-15 [facility] Comment on above: Performed By: #### L 501.2450, L100.0100, L500.3400, L500.2500 ####[facility] [address] [place], [address] GFR/1.73 sq M.predicted among non-blacks MDRD (S/P/Bld) [Vol rate/Area] 88 mL/min/{1.73_m2} Normal >60 [facility] Comment on above: Result Comment: mL/m in/1.73m2 CKD-EPI Creatinine Equation (2020) Performed By: #### L 501.2450, L100.0100, L500.3400, L500.2500 ####[facility] [address] [place], [address] Glucose [Mass/Vol] 131 mg/dL High 70-99 [facility] Comment on above: Performed By: #### L 501.2450, L100.0100, L500.3400, L500.2500 ####[facility] [address] [place], [address] Potassium [Moles/Vol] 4.1 mmol/L Normal 3.3-5.1 [facility] Comment on above: Performed By: #### L 501.2450, L100.0100, L500.3400, L500.2500 ####[facility] [address] [place], [address] Sodium [Moles/Vol] 137 mmol/L Normal 133-145 [facility] Comment on above: Performed By: #### L 501.2450, L100.0100, L500.3400, L500.2500 ####[facility] [address] [place], [address] Urea nitrogen [Mass/Vol] 3 mg/dL Low 4-19 [facility] Comment on above: Performed By: #### L 501.2450, L100.0100, L500.3400, L500.2500 ####[facility] [address] [place], [address] Basophil percentageOrdered B y: Mo Velasco on 12-24-2024 Basophils/100 WBC (Bld) 0.7 % 0-1 [facility] Basophil percentage 0.7 % 0-1 [facility] Bilirubin directOrdered By: Mo Velasco on 12-24-2024 Bilirubin.direct [Mass/Vol] 0.09 mg/dL 0.00-0.30 [facility] Bilirubin, totalOrdered By: Mo Velasco on 12-24-2024 Bilirubin [Mass/Vol] 0.19 mg/dL 0.00-1.30 [facility] Bilirubin, total 0.19 mg/dL 0.00-1.30 [facility] Bilirubin.direct [Mass/Vol]O rdered By: Mo Velasco on 12-24-2024 Bilirubin direct 0.09 mg/dL 0.00-0.30 [facility] CBC W/Diff, Automatedon 11-27 Absolute Lymph 2.44 X10 3/uL Normal 0.83-4.51 [facility] Comment on above: Performed By: #### L 501.2450, L100.0100, L500.3400, L500.2500 ####[facility] [address] [place], [address] Absolute Neut 14.1 X10 3/uL High 2.0-7.7 [facility] Comment on above: Performed By: #### L 501.2450, L100.0100, L500.3400, L500.2500 ####[facility] [address] [place], [address] Basophils/100 WBC (Bld) 0.7 % Normal 0-1 [facility] Comment on above: Performed By: #### L 501.2450, L100.0100, L500.3400, L500.2500 ####[facility] [address] [place], [address] Eosinophils/100 WBC (Bld) 2.3 % Normal 0-5 [facility] Comment on above: Performed By: #### L 501.2450, L100.0100, L500.3400, L500.2500 ####[facility] [address] [place], [address] Erythrocyte distribution width (RBC) [Ratio] 14.6 % Normal 11.6-14.6 [facility] Comment on above: Performed By: #### L 501.2450, L100.0100, L500.3400, L500.2500 ####[facility] [address] [place], [address] Hematocrit (Bld) [Volume fraction] 33.8 % Low 37-47 [facility] Comment on above: Performed By: #### L 501.2450, L100.0100, L500.3400, L500.2500 ####[facility] [address] [place], [address] Hemoglobin (Bld) [Mass/Vol] 10.8 g/dL Low 12.0-15.0 [facility] Comment on above: Performed By: #### L 501.2450, L100.0100, L500.3400, L500.2500 ####[facility] [address] [place], [address] IG% 0.900 Normal 0.0-0.9 [facility] Comment on above: Result Comment: IG% - Immature Granulocytes (promyelocytes, myelocytes andmetamyelocytes) > 1% indicates that a LEFT SHIFT is Present. Performed By: #### L 501.2450, L100.0100, L500.3400, L500.2500 ####[facility] [address] [place], [address] Lymphocytes/100 WBC (Bld) 13.4 % Low 19-41 [facility] Comment on above: Performed By: #### L 501.2450, L100.0100, L500.3400, L500.2500 ####[facility] [address] [place], [address] MCH (RBC) [Entitic mass] 26.9 pg Low 27.0-32.0 [facility] Comment on above: Performed By: #### L 501.2450, L100.0100, L500.3400, L500.2500 ####[facility] [address] [place], [address] MCHC (RBC) [Mass/Vol] 32.0 g/dL Normal 32-36 [facility] Comment on above: Performed By: #### L 501.2450, L100.0100, L500.3400, L500.2500 ####[facility] [address] [place], [address] MCV (RBC) [Entitic vol] 84.1 fL Normal 81-99 [facility] Comment on above: Performed By: #### L 501.2450, L100.0100, L500.3400, L500.2500 ####[facility] [address] [place], [address] Monocytes/100 WBC (Bld) 5.5 % Normal 0-10 [facility] Comment on above: Performed By: #### L 501.2450, L100.0100, L500.3400, L500.2500 ####[facility] [address] [place], [address] Neutrophils/100 WBC (Bld) 77.2 % High 47-70 [facility] Comment on above: Performed By: #### L 501.2450, L100.0100, L500.3400, L500.2500 ####[facility] [address] [place], [address] Nucleated RBC (Bld) [#/Vol] 0 10*3/uL Normal 0-5 [facility] Comment on above: Performed By: #### L 501.2450, L100.0100, L500.3400, L500.2500 ####[facility] [address] [place], [address] Platelet mean volume (Bld) [Entitic vol] 9.3 fL Normal 6.2-12.0 [facility] Comment on above: Performed By: #### L 501.2450, L100.0100, L500.3400, L500.2500 ####[facility] [address] [place], [address] Platelets (Bld) [#/Vol] 396 10*3/uL Normal 150-450 [facility] Comment on above: Performed By: #### L 501.2450, L100.0100, L500.3400, L500.2500 ####[facility] [address] [place], [address] RBC (Bld) [#/Vol] 4.02 10*6/uL Low 4.2-5.4 [facility] Comment on above: Performed By: #### L 501.2450, L100.0100, L500.3400, L500.2500 ####[facility] [address] [place], [address] RDW SD 45.1 fl High 35.1-43.9 [facility] Comment on above: Performed By: #### L 501.2450, L100.0100, L500.3400, L500.2500 ####[facility] [address] [place], [address] WBC (Bld) [#/Vol] 18.2 10*3/uL High 4.4-11.0 [facility] Comment on above: Performed By: #### L 501.2450, L100.0100, L500.3400, L500.2500 ####[facility] [address] [place], [address] Calcium [Mass/Vol]Ordered By : Mo Velasco on 12-24-2024 Serum or plasma calcium measurement (mass/volume) 9.3 mg/dL 7.6-11.0 [facility] Carbon dioxide, total [Moles /volume] in Central venous bloodOrdered By: Mo Velasco on 12-24-2024 CO2 [Moles/Vol] 28.1 mmol/L 21.0-32.0 [facility] Carbon dioxide, total [Moles/volume] in Central venous blood 28.1 mmol/L 21.0-32.0 [facility] Chloride assayOrdered By: Roman Velasco on 12-24-2024 Chloride [Moles/Vol] 97 mmol/L Low 98-108 [facility] Chloride assay 97 mmol/L Low 98-108 [facility] Creatinine [Mass/Vol]Ordered By: Mo Velasco on 12-24-2024 Serum creatinine measurement (mass/volume) 0.77 mg/dL 0.70-1.20 [facility] Emergency Department Summary on 12-24-2024 Emergency Department Summary Normal [facility] Eosinophil percentageOrdered By: Mo Velasco on 12-24-2024 Eosinophils/100 WBC (Bld) 2.3 % 0-5 [facility] Eosinophil percentage 2.3 % 0-5 [facility] Erythrocyte distribution wid th (RBC) [Ratio]Ordered By: Mo Velasco on 12-24-2024 Erythrocyte distribution width ratio 14.6 % 11.6-14.6 [facility] Erythrocyte distribution wid th ratioOrdered By: Mo Velasco on 12-24-2024 Erythrocyte distribution width (RBC) [Ratio] 14.6 % 11.6-14.6 [facility] Erythrocyte distribution wid th standard deviationOrdered By: Mo Velasco on 12-24-2024 Erythrocyte distribution width (RBC) [Ratio] 45.1 fl High 35.1-43.9 [facility] Erythrocyte distribution width standard deviation 45.1 fl High 35.1-43.9 [facility] Estimation of creatinine binu aranceOrdered By: Mo Velasco on 12-24-2024 Estimation of creatinine clearance 63.47 ml/min 50-250 [facility] GFR/1.73 sq M.predicted gregory g non-blacks MDRD (S/P/Bld) [Vol rate/Area]Ordered By: Mo Velasco on 12-24-2024 Glomerular filtration rate (GFR) estimation/1.73 sq m using serum, plasma, or whole b 88 >60 [facility] Glomerular filtration rate ( GFR) estimation/1.73 sq m using serum, plasma, or whole bOrdered By: Mo Velasco on 12-24-2024 GFR/1.73 sq M.predicted among non-blacks MDRD (S/P/Bld) [Vol rate/Area] 88 mL/min/{1.73_m2} >60 [facility] Glucose [Mass/Vol]Ordered By : Mo Velasco on 12-24-2024 Serum glucose measurement (mass/volume) 131 mg/dL High 70-99 [facility] Hematocrit Auto (Bld) [Volum e fraction]Ordered By: Mo Velasco on 12-24-2024 Hematocrit (Bld) [Volume fraction] 33.8 % Low 37-47 [facility] Automated blood hematocrit (percentage) 33.8 % Low 37-47 [facility] Hemoglobin measurementOrdere d By: Mo Velasco on 12-24-2024 Hemoglobin (Bld) [Mass/Vol] 10.8 g/dL Low 12.0-15.0 [facility] Hemoglobin measurement 10.8 g/dL Low 12.0-15.0 [facility] Immature granulocytes/100 WB C Auto (Bld)Ordered By: Mo Velasco on 12-24-2024 Immature granulocytes/100 WBC (Bld) 0.900 % 0.0-0.9 [facility] Automated immature granulocyte percentage 0.900 % 0.0-0.9 [facility] Lipaseon 12-24-2024 Lipase [Catalytic activity/Vol] 34 U/L Normal 13-75 [facility] Comment on above: Result Comment: Jenny capellan note:LIPASE revised reference range effective 23.New Lipase methodology. Expected to produce lower valuesthan the previous assay method.NEW Reference Range: 13 - 75 U/L Performed By: #### L 501.2450, L100.0100, L500.3400, L500.2500 ####[facility] [address] [place], [address] Lipase measurementOrdered By : Mo Velasco on 12-24-2024 Lipase measurement 34 U/L [facility] Liver Profileon 12-24-2024 Albumin [Mass/Vol] 3.4 g/dL Normal 3.4-4.8 [facility] Comment on above: Performed By: #### L 501.2450, L100.0100, L500.3400, L500.2500 ####[facility] [address] [place], [address] ALK PHOS 117 U/L High 35-104 [facility] Comment on above: Performed By: #### L 501.2450, L100.0100, L500.3400, L500.2500 ####[facility] [address] [place], [address] ALT [Catalytic activity/Vol] 18 U/L Normal <=34 [facility] Comment on above: Performed By: #### L 501.2450, L100.0100, L500.3400, L500.2500 ####[facility] [address] [place], [address] AST [Catalytic activity/Vol] 16 U/L Normal <=31 [facility] Comment on above: Performed By: #### L 501.2450, L100.0100, L500.3400, L500.2500 ####[facility] [address] [place], [address] Bilirubin [Mass/Vol] 0.19 mg/dL Normal 0.00-1.30 [facility] Comment on above: Performed By: #### L 501.2450, L100.0100, L500.3400, L500.2500 ####[facility] [address] [place], [address] Bilirubin.direct [Mass/Vol] 0.09 mg/dL Normal 0.00-0.30 [facility] Comment on above: Performed By: #### L 501.2450, L100.0100, L500.3400, L500.2500 ####[facility] [address] [place], [address] Globulin (S) [Mass/Vol] 3.7 g/dL Normal 2.2-4.2 [facility] Comment on above: Performed By: #### L 501.2450, L100.0100, L500.3400, L500.2500 ####[facility] [address] [place], [address] T PROT 7.1 g/dL Normal 5.9-8.4 [facility] Comment on above: Performed By: #### L 501.2450, L100.0100, L500.3400, L500.2500 ####[facility] [address] [place], [address] Lymphocytes Auto (Unsp spec) [#/Vol]Ordered By: Mo Velasco on 12-24-2024 Absolute lymphocyte count 2.44 X10^3/uL 0.83-4.51 [facility] Lymphocytes/100 WBC Auto (Un sp spec)Ordered By: Mo Velasco on 12-24-2024 Automated lymphocyte count as percentage of total leukocytes 13.4 % Low 19-41 [facility] MCV (RBC) [Entitic vol]Order ed By: Mo Velasco on 12-24-2024 MCV (mean corpuscular volume) determination 84.1 fL 81-99 [facility] MCV (mean corpuscular volume ) determinationOrdered By: Mo Velasco on 12-24-2024 MCV (RBC) [Entitic vol] 84.1 fL 81-99 [facility] Mean corpuscular hemoglobin (MCH) determinationOrdered By: Mo Velasco on 12-24-2024 MCH (RBC) [Entitic mass] 26.9 pg Low 27.0-32.0 [facility] Mean corpuscular hemoglobin (MCH) determination 26.9 pg Low 27.0-32.0 [facility] Mean corpuscular hemoglobin concentration (MCHC) determinationOrdered By: Mo Velasco on 12-24-2024 Mean corpuscular hemoglobin concentration (MCHC) determination 32.0 g/dL 32-36 [facility] Mean platelet volume determi nationOrdered By: Mo Velasco on 12-24-2024 Mean platelet volume determination 9.3 fl 6.2-12.0 [facility] Monocyte percentageOrdered B y: Mo Velasoc on 12-24-2024 Monocytes/100 WBC (Bld) 5.5 % 0-10 [facility] Monocyte percentage 5.5 % 0-10 [facility] Neutrophil percentageOrdered By: Mo Velasco on 12-24-2024 Neutrophils/100 WBC (Bld) 77.2 % High 47-70 [facility] Neutrophil percentage 77.2 % High 47-70 [facility] No Panel InformationOrdered By: Mo Velasco on 12-24-2024 16 U/L <32 [facility] Nucleated red blood cell per centageOrdered By: Mo Velasco on 12-24-2024 Nucleated red blood cell percentage 0 % 0-5 [facility] Platelet countOrdered By: Roman Velasco on 12-24-2024 Platelets (Bld) [#/Vol] 396 10*3/uL 150-450 [facility] Platelet count 396 K/mm3 150-450 [facility] Potassium (Unsp spec) [Mass/ Vol]Ordered By: Mo Velasco on 12-24-2024 Potassium measurement (mass/volume) 4.1 mmol/L 3.3-5.1 [facility] Potassium measurement (mass/ volume)Ordered By: Mo Velasco on 12-24-2024 Potassium (Unsp spec) [Mass/Vol] 4.1 mmol/L 3.3-5.1 [facility] RBC Auto (Bld) [#/Vol]Ordere d By: Mo Velasco on 12-24-2024 RBC (Bld) [#/Vol] 4.02 10*6/uL Low 4.2-5.4 [facility] Automated blood erythrocyte count 4.02 M/mm3 Low 4.2-5.4 [facility] Serum creatinine measurement (mass/volume)Ordered By: Mo Velasco on 12-24-2024 Creatinine [Mass/Vol] 0.77 mg/dL 0.70-1.20 [facility] Serum globulin measurementOr dered By: Mo Velasco on 12-24-2024 Globulin (S) [Mass/Vol] 3.7 g/dL 2.2-4.2 [facility] Serum globulin measurement 3.7 g/dL 2.2-4.2 [facility] Serum glucose measurement (m ass/volume)Ordered By: Mo Velasco on 12-24-2024 Glucose [Mass/Vol] 131 mg/dL High 70-99 [facility] Serum or plasma alanine pimentel otransferase (ALT) measurementOrdered By: Mo Velasco on 12-24-2024 ALT [Catalytic activity/Vol] 18 U/L <35 [facility] Serum or plasma albumin esthela urement (mass/volume)Ordered By: Mo Velasco on 12-24-2024 Albumin [Mass/Vol] 3.4 g/dL 3.4-4.8 [facility] Serum or plasma alkaline jose sphatase measurementOrdered By: Mo Velasco on 12-24-2024 ALP [Catalytic activity/Vol] 117 U/L High 35-104 [facility] Serum or plasma calcium esthela urement (mass/volume)Ordered By: Mo Velasco on 12-24-2024 Calcium [Mass/Vol] 9.3 mg/dL 7.6-11.0 [facility] Serum or plasma urea nitroge n measurement (mass/volume)Ordered By: Mo Velasco on 12-24-2024 Urea nitrogen [Mass/Vol] 3 mg/dL Low - [facility] Sodium levelOrdered By: Mo Velasco on 12-24-2024 Sodium [Moles/Vol] 137 mmol/L 133-145 [facility] Sodium level 137 mmol/L 133-145 [facility] Total proteinOrdered By: Bruce Velasco on 12-24-2024 Protein [Mass/Vol] 7.1 g/dL 5.9-8.4 [facility] Total protein 7.1 g/dL 5.9-8.4 [facility] Urea nitrogen [Mass/Vol]Orde red By: Mo Velacso on 12-24-2024 Serum or plasma urea nitrogen measurement (mass/volume) 3 mg/dL Low 4-19 [facility] White blood cell (WBC) count Ordered By: Mo Velasco on 12-24-2024 WBC (Bld) [#/Vol] 18.2 10*3/uL High 4.4-11.0 [facility] White blood cell (WBC) count 18.2 K/mm3 High 4.4-11.0 [facility] CNPNon 12-23-2024 IGORN Telephone (GAPRA3) GRACIE BANUELOS ([id number]) 1965 F Date Time Provider Department 12/23/24 RAISA JIMENEZ GAPRA3 During your visit today, [...] Date Reviewed: 12/19/2024 Reviewed by: Tara Youngblood APRN.BOX [employer]E [employer]ER - Fully Assessed Reason for Visit: Reminder Call [[id number]] Cmt: Missed call Prescriptions as of 12/23/2024 [...] stress female [N39.3] 11/24/2014 HPV test positive [BUQ7204] 11/24/2014 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 Author Type: Registered Nurse Type: Nursing Progress Note Filed: 12/20/2024 14:56 Note Text: Attempted to reach the patient at the contact number that they provided [phone] (home) . 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 they must have a responsible adult [...] Number to call with questions or concerns [phone] Number to call to cancel their procedure [phone] Carroll Leblanc RN Normal [facility] CBC W Auto Differential pane l (Bld)on 12-19-2024 Basophils (Bld) [#/Vol] 0.23 10*3/uL High <0.11 [facility] Comment on above: Order Comment: Speci men Type: BLOOD SPECIMEN Ordering Facility: [facility] Address: [address] [place] [address] Performed By: #### 5 7021-8 #### [facility] CLIA [id number] [address] [place] [address] [place] Basophils/100 WBC (Bld) 0.9 % Normal C [facility] Comment on above: Order Comment: Speci men Type: BLOOD SPECIMEN Ordering Facility: [facility] Address: [address] [place] [address] Performed By: #### 5 7021-8 #### [facility] CLIA [id number] [address] [place] [address] [place] Dacrocytes LM Ql (Bld) Few Normal [facility] Comment on above: Order Comment: Speci men Type: BLOOD SPECIMEN Ordering Facility: [facility] Address: [address] [place] [address] Performed By: #### 5 7021-8 #### [facility] CLIA [id number] [address] [place] [address] [place] Differential cell count method Nom (Bld) Manual Normal [facility] Comment on above: Order Comment: Speci men Type: BLOOD SPECIMEN Ordering Facility: [facility] Address: [address] [place] [address] Performed By: #### 5 7021-8 #### [facility] CLIA [id number] [address] [place] [address] [place] Eosinophils (Bld) [#/Vol] 0.00 10*3/uL Normal <0.46 [facility] Comment on above: Order Comment: Speci men Type: BLOOD SPECIMEN Ordering Facility: [facility] Address: [address] [place] [address] Performed By: #### 5 7021-8 #### [facility] CLIA [id number] [address] [place] [address] [place] Eosinophils/100 WBC (Bld) 0.0 % Normal [facility] Comment on above: Order Comment: Speci men Type: BLOOD SPECIMEN Ordering Facility: [facility] Address: [address] [place] [address] Performed By: #### 5 7021-8 #### [facility] CLIA [id number] [address] [place] [address] [place] Erythrocyte distribution width (RBC) [Ratio] 14.7 % Normal 11.5-15.0 [facility] Comment on above: Order Comment: Speci men Type: BLOOD SPECIMEN Ordering Facility: [facility] Address: [address] [place] [address] Performed By: #### 5 7021-8 #### [facility] CLIA [id number] [address] [place] [address] [place] Hematocrit (Bld) [Volume fraction] 38.4 % Normal 36.0-46.0 [facility] Comment on above: Order Comment: Speci men Type: BLOOD SPECIMEN Ordering Facility: [facility] Address: [address] [place] [address] Performed By: #### 5 7021-8 #### [facility] CLIA [id number] [address] [place] [address] [place] Hemoglobin (Bld) [Mass/Vol] 11.6 g/dL Normal 11.5-15.5 [facility] Comment on above: Order Comment: Speci men Type: BLOOD SPECIMEN Ordering Facility: [facility] Address: [address] [place] [address] Performed By: #### 5 7021-8 #### [facility] CLIA [id number] [address] [place] [address] [place] Lymphocytes (Bld) [#/Vol] 3.58 10*3/uL Normal 1.00-4.00 [facility] Comment on above: Order Comment: Speci men Type: BLOOD SPECIMEN Ordering Facility: [facility] Address: [address] [place] [address] Performed By: #### 5 7021-8 #### [facility] CLIA [id number] [address] [place] [address] [place] Lymphocytes/100 WBC (Bld) 14.0 % Normal [facility] Comment on above: Order Comment: Speci men Type: BLOOD SPECIMEN Ordering Facility: [facility] Address: [address] [place] [address] Performed By: #### 5 7021-8 #### [facility] CLIA [id number] [address] [place] [address] [place] MCH (RBC) [Entitic mass] 26.7 pg Normal 26.0-34.0 [facility] Comment on above: Order Comment: Speci men Type: BLOOD SPECIMEN Ordering Facility: [facility] Address: [address] [place] [address] Performed By: #### 5 7021-8 #### [facility] CLIA [id number] [address] [place] [address] [place] MCHC (RBC) [Mass/Vol] 30.2 g/dL Low 30.5-36.0 [facility] Comment on above: Order Comment: Speci men Type: BLOOD SPECIMEN Ordering Facility: [facility] Address: [address] [place] [address] Performed By: #### 5 7021-8 #### [facility] CLIA [id number] [address] [place] [address] [place] MCV (RBC) [Entitic vol] 88.5 fL Normal 80.0-100.0 C [facility] Comment on above: Order Comment: Speci men Type: BLOOD SPECIMEN Ordering Facility: [facility] Address: [address] [place] [address] Performed By: #### 5 7021-8 #### [facility] CLIA [id number] [address] [place] [address] [place] Metamyelocytes/100 WBC (Bld) 0.9 % Normal [facility] Comment on above: Order Comment: Speci men Type: BLOOD SPECIMEN Ordering Facility: [facility] Address: [address] [place] [address] Performed By: #### 5 7021-8 #### [facility] CLIA [id number] [address] [place] [address] [place] Monocytes (Bld) [#/Vol] 0.90 10*3/uL High <0.87 [facility] Comment on above: Order Comment: Speci men Type: BLOOD SPECIMEN Ordering Facility: [facility] Address: [address] [place] [address] Performed By: #### 5 7021-8 #### [facility] CLIA [id number] [address] [place] [address] [place] Monocytes/100 WBC (Bld) 3.5 % Normal [facility] Comment on above: Order Comment: Speci men Type: BLOOD SPECIMEN Ordering Facility: [facility] Address: [address] [place] [address] Performed By: #### 5 7021-8 #### [facility] CLIA [id number] [address] [place] [address] [place] Neutrophils (Bld) [#/Vol] 20.64 10*3/uL High 1.45-7.50 [facility] Comment on above: Order Comment: Speci men Type: BLOOD SPECIMEN Ordering Facility: [facility] Address: [address] [place] [address] Performed By: #### 5 7021-8 #### [facility] CLIA [id number] [address] [place] [address] [place] Neutrophils/100 WBC (Bld) 80.7 % Normal [facility] Comment on above: Order Comment: Speci men Type: BLOOD SPECIMEN Ordering Facility: [facility] Address: [address] [place] [address] Performed By: #### 5 7021-8 #### [facility] CLIA [id number] [address] [place] [address] [place] Nucleated RBC (Bld) [#/Vol] 10*3/uL Normal <0.01 [facility] Comment on above: Order Comment: Speci men Type: BLOOD SPECIMEN Ordering Facility: [facility] Address: [address] [place] [address] Performed By: #### 5 7021-8 #### [facility] CLIA [id number] [address] [place] [address] [place] Nucleated RBC/100 WBC (Bld) [Ratio] 0.0 /100 [facility] Normal [facility] Comment on above: Order Comment: Speci men Type: BLOOD SPECIMEN Ordering Facility: [facility] Address: [address] [place] [address] Performed By: #### 5 7021-8 #### [facility] CLIA [id number] [address] [place] [address] [place] Ovalocytes LM Ql (Bld) Few Normal [facility] Comment on above: Order Comment: Speci men Type: BLOOD SPECIMEN Ordering Facility: [facility] Address: [address] [place] [address] Performed By: #### 5 7021-8 #### [facility] CLIA [id number] [address] [place] [address] [place] Platelet mean volume (Bld) [Entitic vol] 10.9 fL Normal 9.0-12.7 [facility] Comment on above: Order Comment: Speci men Type: BLOOD SPECIMEN Ordering Facility: [facility] Address: [address] [place] [address] Performed By: #### 5 7021-8 #### [facility] CLIA [id number] [address] [place] [address] [place] Platelets (Bld) [#/Vol] 331 10*3/uL Normal 150-400 [facility] Comment on above: Order Comment: Speci men Type: BLOOD SPECIMEN Ordering Facility: [facility] Address: [address] [place] [address] Performed By: #### 5 7021-8 #### [facility] CLIA [id number] [address] [place] [address] [place] Platelets Estimate (Bld) [#/Vol] Adequate Normal [facility] Comment on above: Order Comment: Speci men Type: BLOOD SPECIMEN Ordering Facility: [facility] Address: [address] [place] [address] Performed By: #### 5 7021-8 #### [facility] CLIA [id number] [address] [place] [address] [place] Polychromasia LM Ql (Bld) Slight Normal [facility] Comment on above: Order Comment: Speci men Type: BLOOD SPECIMEN Ordering Facility: [facility] Address: [address] [place] [address] Performed By: #### 5 7021-8 #### [facility] CLIA [id number] [address] [place], [place] [address] [place] RBC (Bld) [#/Vol] 4.34 10*6/uL Normal 3.90-5.20 [facility] Comment on above: Order Comment: Speci men Type: BLOOD SPECIMEN Ordering Facility: [facility] Address: [address] [place] [address] Performed By: #### 5 7021-8 #### [facility] CLIA [id number] [address] [place] [address] [place] RED CELL MORPH Reviewed: see result s of individual morphologies Normal [facility] Comment on above: Order Comment: Speci men Type: BLOOD SPECIMEN Ordering Facility: [facility] Address: [address] [place] [address] Performed By: #### 5 7021-8 #### [facility] CLIA [id number] [address] [place] [address] [place] Target cells LM Ql (Bld) Few Normal [facility] Comment on above: Order Comment: Speci men Type: BLOOD SPECIMEN Ordering Facility: [facility] Address: [address] [place] [address] Performed By: #### 5 7021-8 #### [facility] CLIA [id number] [address] [place] [address] [place] WBC (Bld) [#/Vol] 25.58 10*3/uL High 3.70-11.00 [facility] Comment on above: Order Comment: Speci men Type: BLOOD SPECIMEN Ordering Facility: [facility] Address: [address] [place] [address] Performed By: #### 5 7021-8 #### [facility] CLIA [id number] [address] [place] [address] [place] WBC Left Shift Ql (Bld) Present Normal [facility] Comment on above: Order Comment: Speci men Type: BLOOD SPECIMEN Ordering Facility: [facility] Address: [address] [place] [address] Performed By: #### 5 7021-8 #### [facility] CLIA [id number] [address] [place] [address] [place] CNOVon 12-19-2024 CNOV Office Visit (FAMPWS ) GRACIE BANUELOS ([id number]) 1965 F Date Time Provider Department 12/19/24 2:40 PM TARA YOUNGBLOOD During your visit today, we recorded the following information about you: Pulse Respiration Blood pressure Weight 103/minute 16/minute 118/62 62.1 kg Tara Youngblood, UNA.BOX TOE MAKER 12/19/2024 3:33 PM Signed Chief Complaint Patient presents with: hospital f/up HPI Gracie Banuelos is a 59 year old female who presents here today for Above Complaints. Gracie is an established patient of Dr. Satnam MD. Concerns today.. Hospital follow-up--- [facility] admission from 12/04-12/12 d/t acute hypoxic respiratory [...] help her quit. 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 Chronic recurrent pancreatitis -- had recent surgery [...] failure (HCC) COPD (chronic obstructive pulmonary disease) ([facility]) 05/25/2012 DDD (degenerative disc disease), cervical 09/03/2018 [...] Stage 3 severe COPD by GOLD classification ([facility]) 2018 Tobacco use greater than 30 years [...] Other: See (more content not included)... [facility]INT[facility] GRACIE BANUELOS ([id number]) 1965 F Date Time Provider Department 12/19/24 MISBAH ELKINS INTMWS During your visit today, we recorded the following information about you: Marge Perkins RN 12/19/2024 6:52 PM Signed Pt called in for x-ray results. I let Pt know they are not back in yet and provider would call her when they are. Soila Easton APRN.BOX TOE MAKER 12/22/2024 8:08 AM Signed I am assuming this is regards to the chest xray as ordered by tara Youngblood. If so please see her result note on the xray. If not, please specify which xray I need to address. Thank you Soila Easton APRN.Eileen Lai MA 12/22/2024 9:01 AM Signed Message sent. 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 Normal [facility] Comprehensive metabolic 2000 panelon 12-19-2024 Albumin [Mass/Vol] 3.6 g/dL Low 3.9-4.9 [facility] Comment on above: Order Comment: Speci men Type: BLOOD SPECIMEN Ordering Facility: [facility] Address: [address] [place] [address] Performed By: #### 2 4323-8, 3040-3 #### [facility] CLIA [id number] [address] [place] [address] [place] ALP [Catalytic activity/Vol] 97 U/L Normal 34-123 [facility] Comment on above: Order Comment: Speci men Type: BLOOD SPECIMEN Ordering Facility: [facility] Address: [address] [place] [address] Performed By: #### 2 4323-8, 3040-3 #### [facility] CLIA [id number] [address] [place] [address] [place] ALT [Catalytic activity/Vol] 16 U/L Normal 7-38 [facility] Comment on above: Order Comment: Speci men Type: BLOOD SPECIMEN Ordering Facility: [facility] Address: [address] [place] [address] Performed By: #### 2 4323-8, 3040-3 #### [facility] CLIA [id number] [address] [place] [address] [place] Anion gap [Moles/Vol] 13 mmol/L Normal 8-15 [facility] Comment on above: Order Comment: Speci men Type: BLOOD SPECIMEN Ordering Facility: [facility] Address: [address] [place] [address] Performed By: #### 2 4323-8, 3040-3 #### [facility] CLIA [id number] [address] [place], [place] [address] [place] AST [Catalytic activity/Vol] 14 U/L Normal 13-35 [facility] Comment on above: Order Comment: Speci men Type: BLOOD SPECIMEN Ordering Facility: [facility] Address: [address] [place] [id number] Performed By: #### 2 4323-8, 3039-3 #### [facility] CLIA [id number] [address] [id number] [place] Bilirubin [Mass/Vol] 0.3 mg/dL Normal 0.2-1.3 [facility] Comment on above: Order Comment: Speci men Type: BLOOD SPECIMEN Ordering Facility: [facility] Address: [address] [id number] Performed By: #### 2 4323-8, 3039-3 #### [facility] CLIA [id number] [address] [place] [address] [place] Calcium [Mass/Vol] 8.9 mg/dL Normal 8.5-10.2 [facility] Comment on above: Order Comment: Speci men Type: BLOOD SPECIMEN Ordering Facility: [facility] Address: [address] [id number] Performed By: #### 2 4323-8, 3039-3 #### [facility] CLIA [id number] [address] [place], [place] [address] [place] Chloride [Moles/Vol] 97 mmol/L Low 98-107 [facility] Comment on above: Order Comment: Speci men Type: BLOOD SPECIMEN Ordering Facility: [facility] Address: [address] [id number] Performed By: #### 2 4323-8, 3039-3 #### [facility] CLIA [id number] [address] [place], [place] [address] [place] CO2 [Moles/Vol] 30 mmol/L Normal 22-30 [facility] Comment on above: Order Comment: Speci men Type: BLOOD SPECIMEN Ordering Facility: [facility] Address: [address] [id number] Performed By: #### 2 4323-8, 3040-3 #### [facility] CLIA [id number] [address] [place] [address] [place] Creatinine [Mass/Vol] 0.81 mg/dL Normal 0.58-0.96 [facility] Comment on above: Order Comment: Speci men Type: BLOOD SPECIMEN Ordering Facility: [facility] Address: [address] [place] [address] Performed By: #### 2 4323-8, 3040-3 #### [facility] CLIA [id number] [address] [place] [address] [place] Creatinine and Glomerular filtration rate.predicted panel (S/P/Bld) 83 mL/min/1.73m??? Normal >=60 [facility] Comment on above: Order Comment: Reggie fajardo Type: BLOOD SPECIMEN Ordering Facility: [facility] Address: [address] [place] [address] Result Comment: Pavan mated Glomerular Filtration Rate [...] actual GFR. Performed By: #### 2 4323-8, 3040-3 #### [facility] CLIA [id number] [address] [place] [address] [place] Glucose [Mass/Vol] 86 mg/dL Normal 74-99 [facility] Comment on above: Order Comment: Kettyi men Type: BLOOD SPECIMEN Ordering Facility: [facility] Address: [address] [place] [address] Result Comment: The [place] [employer] (ADA) provides guidance for cutoff [...] Standards of Medical Care in Diabetes 2016, [place] [employer]. Diabetes Care. 2016.39(Suppl 1). Performed By: #### 2 4323-8, 3039-3 #### [facility] CLIA [id number] [address] [place], [place] [address] [place] Potassium [Moles/Vol] 4.0 mmol/L Normal 3.7-5.1 [facility] Comment on above: Order Comment: Speci men Type: BLOOD SPECIMEN Ordering Facility: [facility] Address: [address] [place] [address] Performed By: #### 2 43238, 3039-3 #### [facility] CLIA [id number] [address] [place], [place] [address] [place] Protein [Mass/Vol] 6.1 g/dL Low 6.3-8.0 [facility] Comment on above: Order Comment: Speci men Type: BLOOD SPECIMEN Ordering Facility: [facility] Address: [address] [place] [address] Performed By: #### 2 4323-8, 3039-3 #### [facility] CLIA [id number] [address] [place], [place] [address] [place] Sodium [Moles/Vol] 140 mmol/L Normal 136-144 [facility] Comment on above: Order Comment: Speci men Type: BLOOD SPECIMEN Ordering Facility: [facility] Address: [address] [place] [address] Performed By: #### 2 4323-8, 0-3 #### [facility] CLIA [id number] [address] [place], [place] [address] [place] Urea nitrogen [Mass/Vol] 8 mg/dL Normal 7-21 [facility] Comment on above: Order Comment: Speci men Type: BLOOD SPECIMEN Ordering Facility: [facility] Address: [address] [place] [address] Performed By: #### 2 4323-8, 3040-3 #### [facility] CLIA [id number] [address] [place] [address] [place] Lipase SerPl-cCncon 12-20-19 25 Lipase [Catalytic activity/Vol] 32 U/L Normal 16-61 [facility] Comment on above: Order Comment: Speci men Type: BLOOD SPECIMENOrdering Facility: [facility] Address: [address] [place] [address] Performed By: #### 2 4323-8, 3040-3 ####[facility] [id number] [address] [place] XR CHEST 2V FRONTAL/LATon [...] tissues: Unremarkable. IMPRESSION: No acute radiographic abnormality. Weathercaster: BABATUNDE Transcribe Date/Time: Dec 21 2024 4:06P Dictated by : JEAN-CLAUDE MANRIQUEZ MD This examination was interpreted and the report reviewed and electronically signed by: JEAN-CLAUDE MANRIQUEZ MD on Dec 21 2024 4:07PM EST [id number] Normal [facility] Basic Metabolic Profile (BMP )on 12-17-2024 BUN Normal 4-19 [facility] Comment on above: Result Comment: Canc elled via OM: Order cancelled - Patient discharged Performed By: #### L 100.0100, L500.2500 ####[facility] [address] [place], [address] BUN/CRE Normal 10-20 [facility] Comment on above: Result Comment: Canc elled via OM: Order cancelled - Patient discharged Performed By: #### L 100.0100, L500.2500 ####[facility] [address] [place], [address] Calcium Normal 7.6-11.0 [facility] Comment on above: Result Comment: Canc elled via OM: Order cancelled - Patient discharged Performed By: #### L 100.0100, L500.2500 ####[facility] [address] [place], [address] CL Normal 98-108 [facility] Comment on above: Result Comment: Canc elled via OM: Order cancelled - Patient discharged Performed By: #### L 100.0100, L500.2500 ####[facility] [address] [place], [address] CO2 Normal 21.0-32.0 [facility] Comment on above: Result Comment: Canc elled via OM: Order cancelled - Patient discharged Performed By: #### L 100.0100, L500.2500 ####[facility] [address] [place], [address] CREAT,SERUM Normal 0.70-1.20 [facility] Comment on above: Result Comment: Canc elled via OM: Order cancelled - Patient discharged Performed By: #### L 100.0100, L500.2500 ####[facility] [address] [place], [address] eGFR Normal >60 [facility] Comment on above: Result Comment: Canc elled via OM: Order cancelled - Patient discharged Performed By: #### L 100.0100, L500.2500 ####[facility] [address] [place], [address] GAP Normal 5-15 [facility] Comment on above: Result Comment: Canc elled via OM: Order cancelled - Patient discharged Performed By: #### L 100.0100, L500.2500 ####[facility] [address] [place], [address] GLU Normal 70-99 [facility] Comment on above: Result Comment: Canc elled via OM: Order cancelled - Patient discharged Performed By: #### L 100.0100, L500.2500 ####[facility] [address] [place], [address] Potassium Normal 3.3-5.1 [facility] Comment on above: Result Comment: Canc elled via OM: Order cancelled - Patient discharged Performed By: #### L 100.0100, L500.2500 ####[facility] [address] [place], [address] Basic Metabolic Profile (BMP) Normal 133-145 [facility] Comment on above: Result Comment: Canc elled via OM: Order cancelled - Patient discharged Performed By: #### L 100.0100, L500.2500 ####[facility] [address] [place], [address] CBC W/Diff, Automatedon 03-2 Absolute Neut Normal 2.0-7.7 [facility] Comment on above: Result Comment: Canc elled via OM: Order cancelled - Patient discharged Performed By: #### L 100.0100, L500.2500 ####[facility] [address] [place], [address] HCT Normal 37-47 [facility] Comment on above: Result Comment: Canc elled via OM: Order cancelled - Patient discharged Performed By: #### L 100.0100, L500.2500 ####[facility] [address] [place], [address] HGB Normal 12.0-15.0 [facility] Comment on above: Result Comment: Canc elled via OM: Order cancelled - Patient discharged Performed By: #### L 100.0100, L500.2500 ####[facility] [address] [place], [address] MCH Normal 27.0-32.0 [facility] Comment on above: Result Comment: Canc elled via OM: Order cancelled - Patient discharged Performed By: #### L 100.0100, L500.2500 ####[facility] [address] [place], [address] MCHC Normal 32-36 [facility] Comment on above: Result Comment: Canc elled via OM: Order cancelled - Patient discharged Performed By: #### L 100.0100, L500.2500 ####[facility] [address] [place], [address] MCV Normal 81-99 [facility] Comment on above: Result Comment: Canc elled via OM: Order cancelled - Patient discharged Performed By: #### L 100.0100, L500.2500 ####[facility] [address] [place], [address] NEUT% Normal 47-70 [facility] Comment on above: Result Comment: Canc elled via OM: Order cancelled - Patient discharged Performed By: #### L 100.0100, L500.2500 ####[facility] [address] [place], [address] PLT Normal 150-450 [facility] Comment on above: Result Comment: Canc elled via OM: Order cancelled - Patient discharged Performed By: #### L 100.0100, L500.2500 ####[facility] [address] [place], [address] RBC Normal 4.2-5.4 [facility] Comment on above: Result Comment: Canc elled via OM: Order cancelled - Patient discharged Performed By: #### L 100.0100, L500.2500 ####[facility] [address] [place], [address] RDW CV Normal 11.6-14.6 [facility] Comment on above: Result Comment: Canc elled via OM: Order cancelled - Patient discharged Performed By: #### L 100.0100, L500.2500 ####[facility] [address] [place], [address] RDW SD Normal 35.1-43.9 [facility] Comment on above: Result Comment: Canc elled via OM: Order cancelled - Patient discharged Performed By: #### L 100.0100, L500.2500 ####[facility] [address] [place], [address] WBC Normal 4.4-11.0 [facility] Comment on above: Result Comment: Canc elled via OM: Order cancelled - Patient discharged Performed By: #### L 100.0100, L500.2500 ####[facility] [address] [place], [address] Basic Metabolic Profile (BMP )on 12-16-2024 BUN Normal 4-19 [facility] Comment on above: Result Comment: Canc elled via OM: Order cancelled - Patient discharged Performed By: #### L 500.2500, L100.0100 ####[facility] [address] [place], [address] BUN/CRE Normal 10-20 [facility] Comment on above: Result Comment: Canc elled via OM: Order cancelled - Patient discharged Performed By: #### L 500.2500, L100.0100 ####[facility] [address] [place], [address] Calcium Normal 7.6-11.0 [facility] Comment on above: Result Comment: Canc elled via OM: Order cancelled - Patient discharged Performed By: #### L 500.2500, L100.0100 ####[facility] [address] [place], [address] CL Normal 98-108 [facility] Comment on above: Result Comment: Canc elled via OM: Order cancelled - Patient discharged Performed By: #### L 500.2500, L100.0100 ####[facility] [address] [place], [address] CO2 Normal 21.0-32.0 [facility] Comment on above: Result Comment: Canc elled via OM: Order cancelled - Patient discharged Performed By: #### L 500.2500, L100.0100 ####[facility] [address] [place], [address] CREAT,SERUM Normal 0.70-1.20 [facility] Comment on above: Result Comment: Canc elled via OM: Order cancelled - Patient discharged Performed By: #### L 500.2500, L100.0100 ####[facility] [address] [place], [address] eGFR Normal >60 [facility] Comment on above: Result Comment: Canc elled via OM: Order cancelled - Patient discharged Performed By: #### L 500.2500, L100.0100 ####[facility] [address] [place], [address] GAP Normal 5-15 [facility] Comment on above: Result Comment: Canc elled via OM: Order cancelled - Patient discharged Performed By: #### L 500.2500, L100.0100 ####[facility] [address] [place], [address] GLU Normal 70-99 [facility] Comment on above: Result Comment: Canc elled via OM: Order cancelled - Patient discharged Performed By: #### L 500.2500, L100.0100 ####[facility] [address] [place], [address] Potassium Normal 3.3-5.1 [facility] Comment on above: Result Comment: Canc elled via OM: Order cancelled - Patient discharged Performed By: #### L 500.2500, L100.0100 ####[facility] [address] [place], [address] Basic Metabolic Profile (BMP) Normal 133-145 [facility] Comment on above: Result Comment: Canc elled via OM: Order cancelled - Patient discharged Performed By: #### L 500.2500, L100.0100 ####[facility] [address] [place], [address] CBC W/Diff, Automatedon 03-2 Absolute Neut Normal 2.0-7.7 [facility] Comment on above: Result Comment: Canc elled via OM: Order cancelled - Patient discharged Performed By: #### L 500.2500, L100.0100 ####[facility] [address] [place], [address] HCT Normal 37-47 [facility] Comment on above: Result Comment: Canc elled via OM: Order cancelled - Patient discharged Performed By: #### L 500.2500, L100.0100 ####[facility] [address] [place], [address] HGB Normal 12.0-15.0 [facility] Comment on above: Result Comment: Canc elled via OM: Order cancelled - Patient discharged Performed By: #### L 500.2500, L100.0100 ####[facility] [address] [place], [address] MCH Normal 27.0-32.0 [facility] Comment on above: Result Comment: Canc elled via OM: Order cancelled - Patient discharged Performed By: #### L 500.2500, L100.0100 ####[facility] [address] [place], [address] MCHC Normal 32-36 [facility] Comment on above: Result Comment: Canc elled via OM: Order cancelled - Patient discharged Performed By: #### L 500.2500, L100.0100 ####[facility] [address] [place], [address] MCV Normal 81-99 [facility] Comment on above: Result Comment: Canc elled via OM: Order cancelled - Patient discharged Performed By: #### L 500.2500, L100.0100 ####[facility] [address] [place], [address] NEUT% Normal 47-70 [facility] Comment on above: Result Comment: Canc elled via OM: Order cancelled - Patient discharged Performed By: #### L 500.2500, L100.0100 ####[facility] [address] [place], [address] PLT Normal 150-450 [facility] Comment on above: Result Comment: Canc elled via OM: Order cancelled - Patient discharged Performed By: #### L 500.2500, L100.0100 ####[facility] [address] [place], [address] RBC Normal 4.2-5.4 [facility] Comment on above: Result Comment: Canc elled via OM: Order cancelled - Patient discharged Performed By: #### L 500.2500, L100.0100 ####[facility] [address] [place], [address] RDW CV Normal 11.6-14.6 [facility] Comment on above: Result Comment: Canc elled via OM: Order cancelled - Patient discharged Performed By: #### L 500.2500, L100.0100 ####[facility] [address] [place], [address] RDW SD Normal 35.1-43.9 [facility] Comment on above: Result Comment: Canc elled via OM: Order cancelled - Patient discharged Performed By: #### L 500.2500, L100.0100 ####[facility] [address] [place], [address] WBC Normal 4.4-11.0 [facility] Comment on above: Result Comment: Canc elled via OM: Order cancelled - Patient discharged Performed By: #### L 500.2500, L100.0100 ####[facility] [address] [place], [address] Gastroenterology Visit Repor ton 12-16-2024 Gastroenterology Visit Report Normal [facility] Basic Metabolic Profile (BMP )on 12-15-2024 BUN Normal 4-19 [facility] Comment on above: Result Comment: Canc elled via OM: Order cancelled - Patient discharged Performed By: #### L 500.2500, L100.0100 ####[facility] [address] [place], [address] BUN/CRE Normal 10-20 [facility] Comment on above: Result Comment: Canc elled via OM: Order cancelled - Patient discharged Performed By: #### L 500.2500, L100.0100 ####[facility] [address] [place], [address] Calcium Normal 7.6-11.0 [facility] Comment on above: Result Comment: Canc elled via OM: Order cancelled - Patient discharged Performed By: #### L 500.2500, L100.0100 ####[facility] [address] [place], [address] CL Normal 98-108 [facility] Comment on above: Result Comment: Canc elled via OM: Order cancelled - Patient discharged Performed By: #### L 500.2500, L100.0100 ####[facility] [address] [place], [address] CO2 Normal 21.0-32.0 [facility] Comment on above: Result Comment: Canc elled via OM: Order cancelled - Patient discharged Performed By: #### L 500.2500, L100.0100 ####[facility] [address] [place], [address] CREAT,SERUM Normal 0.70-1.20 [facility] Comment on above: Result Comment: Canc elled via OM: Order cancelled - Patient discharged Performed By: #### L 500.2500, L100.0100 ####[facility] [address] [place], [address] eGFR Normal >60 [facility] Comment on above: Result Comment: Canc elled via OM: Order cancelled - Patient discharged Performed By: #### L 500.2500, L100.0100 ####[facility] [address] [place], [address] GAP Normal 5-15 [facility] Comment on above: Result Comment: Canc elled via OM: Order cancelled - Patient discharged Performed By: #### L 500.2500, L100.0100 ####[facility] [address] [place], [address] GLU Normal 70-99 [facility] Comment on above: Result Comment: Canc elled via OM: Order cancelled - Patient discharged Performed By: #### L 500.2500, L100.0100 ####[facility] [address] [place], [address] Potassium Normal 3.3-5.1 [facility] Comment on above: Result Comment: Canc elled via OM: Order cancelled - Patient discharged Performed By: #### L 500.2500, L100.0100 ####[facility] [address] [place], [address] Basic Metabolic Profile (BMP) Normal 133-145 [facility] Comment on above: Result Comment: Canc elled via OM: Order cancelled - Patient discharged Performed By: #### L 500.2500, L100.0100 ####[facility] [address] [place], [address] CBC W/Diff, Automatedon 03-2 0-2024 Absolute Neut Normal 2.0-7.7 [facility] Comment on above: Result Comment: Canc elled via OM: Order cancelled - Patient discharged Performed By: #### L 500.2500, L100.0100 ####[facility] [address] [place], [address] HCT Normal 37-47 [facility] Comment on above: Result Comment: Canc elled via OM: Order cancelled - Patient discharged Performed By: #### L 500.2500, L100.0100 ####[facility] [address] [place], [address] HGB Normal 12.0-15.0 [facility] Comment on above: Result Comment: Canc elled via OM: Order cancelled - Patient discharged Performed By: #### L 500.2500, L100.0100 ####[facility] [address] [place], [address] MCH Normal 27.0-32.0 [facility] Comment on above: Result Comment: Canc elled via OM: Order cancelled - Patient discharged Performed By: #### L 500.2500, L100.0100 ####[facility] [address] [place], [address] MCHC Normal 32-36 [facility] Comment on above: Result Comment: Canc elled via OM: Order cancelled - Patient discharged Performed By: #### L 500.2500, L100.0100 ####[facility] [address] [place], [address] MCV Normal 81-99 [facility] Comment on above: Result Comment: Canc elled via OM: Order cancelled - Patient discharged Performed By: #### L 500.2500, L100.0100 ####[facility] [address] [place], [address] NEUT% Normal 47-70 [facility] Comment on above: Result Comment: Canc elled via OM: Order cancelled - Patient discharged Performed By: #### L 500.2500, L100.0100 ####[facility] [address] [place], [address] PLT Normal 150-450 [facility] Comment on above: Result Comment: Canc elled via OM: Order cancelled - Patient discharged Performed By: #### L 500.2500, L100.0100 ####[facility] [address] [place], [address] RBC Normal 4.2-5.4 [facility] Comment on above: Result Comment: Canc elled via OM: Order cancelled - Patient discharged Performed By: #### L 500.2500, L100.0100 ####[facility] [address] [place], [address] RDW CV Normal 11.6-14.6 [facility] Comment on above: Result Comment: Canc elled via OM: Order cancelled - Patient discharged Performed By: #### L 500.2500, L100.0100 ####[facility] [address] [place], [address] RDW SD Normal 35.1-43.9 [facility] Comment on above: Result Comment: Canc elled via OM: Order cancelled - Patient discharged Performed By: #### L 500.2500, L100.0100 ####[facility] [address] [place], [address] WBC Normal 4.4-11.0 [facility] Comment on above: Result Comment: Canc elled via OM: Order cancelled - Patient discharged Performed By: #### L 500.2500, L100.0100 ####[facility] [address] [place], [address] Basic Metabolic Profile (BMP )on 12-14-2024 BUN Normal 4-19 [facility] Comment on above: Result Comment: Canc elled via OM: Order cancelled - Patient discharged Performed By: #### L 100.0100, L500.2500 ####[facility] [address] [place], [address] BUN/CRE Normal 10-20 [facility] Comment on above: Result Comment: Canc elled via OM: Order cancelled - Patient discharged Performed By: #### L 100.0100, L500.2500 ####[facility] [address] [place], [address] Calcium Normal 7.6-11.0 [facility] Comment on above: Result Comment: Canc elled via OM: Order cancelled - Patient discharged Performed By: #### L 100.0100, L500.2500 ####[facility] [address] [place], [address] CL Normal 98-108 [facility] Comment on above: Result Comment: Canc elled via OM: Order cancelled - Patient discharged Performed By: #### L 100.0100, L500.2500 ####[facility] [address] [place], [address] CO2 Normal 21.0-32.0 [facility] Comment on above: Result Comment: Canc elled via OM: Order cancelled - Patient discharged Performed By: #### L 100.0100, L500.2500 ####[facility] [address] [place], [address] CREAT,SERUM Normal 0.70-1.20 [facility] Comment on above: Result Comment: Canc elled via OM: Order cancelled - Patient discharged Performed By: #### L 100.0100, L500.2500 ####[facility] [address] [place], [address] eGFR Normal >60 [facility] Comment on above: Result Comment: Canc elled via OM: Order cancelled - Patient discharged Performed By: #### L 100.0100, L500.2500 ####[facility] [address] [place], [address] GAP Normal 5-15 [facility] Comment on above: Result Comment: Canc elled via OM: Order cancelled - Patient discharged Performed By: #### L 100.0100, L500.2500 ####[facility] [address] [place], [address] GLU Normal 70-99 [facility] Comment on above: Result Comment: Canc elled via OM: Order cancelled - Patient discharged Performed By: #### L 100.0100, L500.2500 ####[facility] [address] [place], [address] Potassium Normal 3.3-5.1 [facility] Comment on above: Result Comment: Canc elled via OM: Order cancelled - Patient discharged Performed By: #### L 100.0100, L500.2500 ####[facility] [address] [place], [address] Basic Metabolic Profile (BMP) Normal 133-145 [facility] Comment on above: Result Comment: Canc elled via OM: Order cancelled - Patient discharged Performed By: #### L 100.0100, L500.2500 ####[facility] [address] [place], [address] CBC W/Diff, Automatedon 03- Absolute Neut Normal 2.0-7.7 [facility] Comment on above: Result Comment: Canc elled via OM: Order cancelled - Patient discharged Performed By: #### L 100.0100, L500.2500 ####[facility] [address] [place], [address] HCT Normal 37-47 [facility] Comment on above: Result Comment: Canc elled via OM: Order cancelled - Patient discharged Performed By: #### L 100.0100, L500.2500 ####[facility] [address] [place], [address] HGB Normal 12.0-15.0 [facility] Comment on above: Result Comment: Canc elled via OM: Order cancelled - Patient discharged Performed By: #### L 100.0100, L500.2500 ####[facility] [address] [place], [address] MCH Normal 27.0-32.0 [facility] Comment on above: Result Comment: Canc elled via OM: Order cancelled - Patient discharged Performed By: #### L 100.0100, L500.2500 ####[facility] [address] [place], [address] MCHC Normal 32-36 [facility] Comment on above: Result Comment: Canc elled via OM: Order cancelled - Patient discharged Performed By: #### L 100.0100, L500.2500 ####[facility] [address] [place], [address] MCV Normal 81-99 [facility] Comment on above: Result Comment: Canc elled via OM: Order cancelled - Patient discharged Performed By: #### L 100.0100, L500.2500 ####[facility] [address] [place], [address] NEUT% Normal 47-70 [facility] Comment on above: Result Comment: Canc elled via OM: Order cancelled - Patient discharged Performed By: #### L 100.0100, L500.2500 ####[facility] [address] [place], [address] PLT Normal 150-450 [facility] Comment on above: Result Comment: Canc elled via OM: Order cancelled - Patient discharged Performed By: #### L 100.0100, L500.2500 ####[facility] [address] [place], [address] RBC Normal 4.2-5.4 [facility] Comment on above: Result Comment: Canc elled via OM: Order cancelled - Patient discharged Performed By: #### L 100.0100, L500.2500 ####[facility] [address] [place], [address] RDW CV Normal 11.6-14.6 [facility] Comment on above: Result Comment: Canc elled via OM: Order cancelled - Patient discharged Performed By: #### L 100.0100, L500.2500 ####[facility] [address] [place], [address] RDW SD Normal 35.1-43.9 [facility] Comment on above: Result Comment: Canc elled via OM: Order cancelled - Patient discharged Performed By: #### L 100.0100, L500.2500 ####[facility] [address] [place], [address] WBC Normal 4.4-11.0 [facility] Comment on above: Result Comment: Canc elled via OM: Order cancelled - Patient discharged Performed By: #### L 100.0100, L500.2500 ####[facility] [address] [place], [address] Basic Metabolic Profile (BMP )on 12-13-2024 BUN Normal 4-19 [facility] Comment on above: Result Comment: Canc elled via OM: Order cancelled - Patient discharged Performed By: #### L 100.0100, L500.2500 ####[facility] [address] [place], [address] BUN/CRE Normal 10-20 [facility] Comment on above: Result Comment: Canc elled via OM: Order cancelled - Patient discharged Performed By: #### L 100.0100, L500.2500 ####[facility] [address] [place], [address] Calcium Normal 7.6-11.0 [facility] Comment on above: Result Comment: Canc elled via OM: Order cancelled - Patient discharged Performed By: #### L 100.0100, L500.2500 ####[facility] [address] [place], [address] CL Normal 98-108 [facility] Comment on above: Result Comment: Canc elled via OM: Order cancelled - Patient discharged Performed By: #### L 100.0100, L500.2500 ####[facility] [address] [place], [address] CO2 Normal 21.0-32.0 [facility] Comment on above: Result Comment: Canc elled via OM: Order cancelled - Patient discharged Performed By: #### L 100.0100, L500.2500 ####[facility] [address] [place], [address] CREAT,SERUM Normal 0.70-1.20 [facility] Comment on above: Result Comment: Canc elled via OM: Order cancelled - Patient discharged Performed By: #### L 100.0100, L500.2500 ####[facility] [address] [place], [address] eGFR Normal >60 [facility] Comment on above: Result Comment: Canc elled via OM: Order cancelled - Patient discharged Performed By: #### L 100.0100, L500.2500 ####[facility] [address] [place], [address] GAP Normal 5-15 [facility] Comment on above: Result Comment: Canc elled via OM: Order cancelled - Patient discharged Performed By: #### L 100.0100, L500.2500 ####[facility] [address] [place], [address] GLU Normal 70-99 [facility] Comment on above: Result Comment: Canc elled via OM: Order cancelled - Patient discharged Performed By: #### L 100.0100, L500.2500 ####[facility] [address] [place], [address] Potassium Normal 3.3-5.1 [facility] Comment on above: Result Comment: Canc elled via OM: Order cancelled - Patient discharged Performed By: #### L 100.0100, L500.2500 ####[facility] [address] [place], [address] Basic Metabolic Profile (BMP) Normal 133-145 [facility] Comment on above: Result Comment: Canc elled via OM: Order cancelled - Patient discharged Performed By: #### L 100.0100, L500.2500 ####[facility] [address] [place], [address] CBC W/Diff, Automatedon - Absolute Neut Normal 2.0-7.7 [facility] Comment on above: Result Comment: Canc elled via OM: Order cancelled - Patient discharged Performed By: #### L 100.0100, L500.2500 ####[facility] [address] [place], [address] HCT Normal 37-47 [facility] Comment on above: Result Comment: Canc elled via OM: Order cancelled - Patient discharged Performed By: #### L 100.0100, L500.2500 ####[facility] [address] [place], [address] HGB Normal 12.0-15.0 [facility] Comment on above: Result Comment: Canc elled via OM: Order cancelled - Patient discharged Performed By: #### L 100.0100, L500.2500 ####[facility] [address] [place], [address] MCH Normal 27.0-32.0 [facility] Comment on above: Result Comment: Canc elled via OM: Order cancelled - Patient discharged Performed By: #### L 100.0100, L500.2500 ####[facility] [address] [place], [address] MCHC Normal 32-36 [facility] Comment on above: Result Comment: Canc elled via OM: Order cancelled - Patient discharged Performed By: #### L 100.0100, L500.2500 ####[facility] [address] [place], [address] MCV Normal 81-99 [facility] Comment on above: Result Comment: Canc elled via OM: Order cancelled - Patient discharged Performed By: #### L 100.0100, L500.2500 ####[facility] [address] [place], [address] NEUT% Normal 47-70 [facility] Comment on above: Result Comment: Canc elled via OM: Order cancelled - Patient discharged Performed By: #### L 100.0100, L500.2500 ####[facility] [address] [place], [address] PLT Normal 150-450 [facility] Comment on above: Result Comment: Canc elled via OM: Order cancelled - Patient discharged Performed By: #### L 100.0100, L500.2500 ####[facility] [address] [place], [address] RBC Normal 4.2-5.4 [facility] Comment on above: Result Comment: Canc elled via OM: Order cancelled - Patient discharged Performed By: #### L 100.0100, L500.2500 ####[facility] [address] [place], [address] RDW CV Normal 11.6-14.6 [facility] Comment on above: Result Comment: Canc elled via OM: Order cancelled - Patient discharged Performed By: #### L 100.0100, L500.2500 ####[facility] [address] [place], [address] RDW SD Normal 35.1-43.9 [facility] Comment on above: Result Comment: Canc elled via OM: Order cancelled - Patient discharged Performed By: #### L 100.0100, L500.2500 ####[facility] [address] [place], [address] WBC Normal 4.4-11.0 [facility] Comment on above: Result Comment: Canc elled via OM: Order cancelled - Patient discharged Performed By: #### L 100.0100, L500.2500 ####[facility] [address] [place], [address] Respiratory Cultureon 2024 RESPC Mixed normal respiratory benjie. No Streptococcus pneumoniae, beta-hemolytic Streptococcus or Staphylococcus aureus isolated. Normal [facility] Comment on above: Performed By: #### M 100.2000, M100.2400 ####[facility] [address] [place], [address] Absolute lymphocyte countOrd ered By: Anastacia Bonilla on 12-12-2024 Lymphocytes Auto (Unsp spec) [#/Vol] 4.36 10*3/uL 0.83-4.51 [facility] Absolute neutrophil countOrd ered By: Anastacia Bonilla on 12-12-2024 Neutrophils (Bld) [#/Vol] 17.2 10*3/uL High 2.0-7.7 [facility] Absolute neutrophil count 17.2 X10^3/uL High 2.0-7.7 [facility] Anion gap [Moles/Vol]Ordered By: Anastacia Bonilla on 12-12-2024 Anion gap in Serum or Plasma 8 02-09 [facility] Anion gap in Serum or Plasma Ordered By: Anastacia Bonilla on 12-12-2024 Anion gap [Moles/Vol] 8 mmol/L 02-09 [facility] BUN/creatinine ratioOrdered By: Anastacia Bonilla on 12-12-2024 Urea nitrogen/Creatinine [Mass ratio] 32.0 mg/mg High 07-17 [facility] BUN/creatinine ratio 32.0 RATIO High 07-17 [facility] Band form neutrophils/100 WB C (Bld)Ordered By: Anastacia Bonilla on 12-12-2024 Blood band neutrophil count as percentage of total leukocytes 2 % 0 [facility] Basic Metabolic Profile (BMP )on 12-12-2024 BUN/CRE 32.0 RATIO High 07-17 [facility] Comment on above: Performed By: #### L 500.2500, L100.0100 ####[facility] [address] [place], [address] Calcium [Mass/Vol] 8.9 mg/dL Normal 7.6-11.0 [facility] Comment on above: Performed By: #### L 500.2500, L100.0100 ####[facility] [address] [place], [address] Chloride [Moles/Vol] 95 mmol/L Low 98-108 [facility] Comment on above: Performed By: #### L 500.2500, L100.0100 ####[facility] [address] [place], [address] CO2 [Moles/Vol] 34.4 mmol/L High 21.0-32.0 [facility] Comment on above: Performed By: #### L 500.2500, L100.0100 ####[facility] [address] [place], [address] Creatinine [Mass/Vol] 0.77 mg/dL Normal 0.70-1.20 [facility] Comment on above: Performed By: #### L 500.2500, L100.0100 ####[facility] [address] [place], [address] ECRCL 63.47 ml/min Normal 50-250 [facility] Comment on above: Performed By: #### L 500.2500, L100.0100 ####[facility] [address] [place], [address] GAP 8 Normal 5-15 [facility] Comment on above: Performed By: #### L 500.2500, L100.0100 ####[facility] [address] [place], [address] GFR/1.73 sq M.predicted among non-blacks MDRD (S/P/Bld) [Vol rate/Area] 87 mL/min/{1.73_m2} Normal >60 [facility] Comment on above: Result Comment: mL/m in/1.73m2 CKD-EPI Creatinine Equation (2020) Performed By: #### L 500.2500, L100.0100 ####[facility] [address] [place], [address] Glucose [Mass/Vol] 80 mg/dL Normal 70-99 [facility] Comment on above: Performed By: #### L 500.2500, L100.0100 ####[facility] [address] [place], [address] Potassium [Moles/Vol] 4.1 mmol/L Normal 3.3-5.1 [facility] Comment on above: Performed By: #### L 500.2500, L100.0100 ####[facility] [address] [place], [address] Sodium [Moles/Vol] 137 mmol/L Normal 133-145 [facility] Comment on above: Performed By: #### L 500.2500, L100.0100 ####[facility] [address] [place], [address] Urea nitrogen [Mass/Vol] 25 mg/dL High 4-19 [facility] Comment on above: Performed By: #### L 500.2500, L100.0100 ####[facility] [address] [place], [address] Blood band neutrophil count as percentage of total leukocytesOrdered By: Anastacia Bonilla on 12-12-2024 Band form neutrophils/100 WBC (Bld) 2 % 0-5 [facility] Blood lymphocytes/100 leukoc ytesOrdered By: Anastacia Bonilla on 12-12-2024 Lymphocytes/100 WBC (Bld) 17 % Low 19-41 [facility] Blood manual differential co mment interpretation (narrative result)Ordered By: Anastacia Bonilla on 12-12-2024 Manual differential comment Geovany (Bld) [Interp] SCANNED [facility] Blood metamyelocytes/100 scott kocytesOrdered By: Anastacia Bonilla on 12-12-2024 Metamyelocytes/100 WBC (Bld) 1 % 0-1 [facility] Blood monocytes/100 leukocyt esOrdered By: Anastacia Bonilla on 12-12-2024 Monocytes/100 WBC (Bld) 5 % 0-10 [facility] Blood segmented neutrophils/ 100 leukocytesOrdered By: Anastacia Bonilla on 12-12-2024 Segmented neutrophils/100 WBC (Bld) 65 % 47-70 [facility] Calcium [Mass/Vol]Ordered By : Anastacia Bonilla on 12-12-2024 Serum or plasma calcium measurement (mass/volume) 8.9 mg/dL 7.6-11.0 [facility] Carbon dioxide, total [Moles /volume] in Central venous bloodOrdered By: Anastacia Bonilla on 12-12-2024 CO2 [Moles/Vol] 34.4 mmol/L High 21.0-32.0 [facility] Carbon dioxide, total [Moles/volume] in Central venous blood 34.4 mmol/L High 21.0-32.0 [facility] Cells counted Molgen (Bld/Ti ss) [#]Ordered By: Anastacia Bonilla on 12-12-2024 Differential Total Cells Counted 100 MANUAL DIFF [facility] Total cell count 100 MANUAL DIFF [facility] Chloride assayOrdered By: Na emily Bonilla on 12-12-2024 Chloride [Moles/Vol] 95 mmol/L Low 98-108 [facility] Chloride assay 95 mmol/L Low 98-108 [facility] Creatinine [Mass/Vol]Ordered By: Anastacia Bonilla on 12-12-2024 Serum creatinine measurement (mass/volume) 0.77 mg/dL 0.70-1.20 [facility] Discharge Instructionon 11-26 Discharge Instruction Normal [facility] EGD Reporton 12-12-2024 EGD Report Normal [facility] Erythrocyte distribution wid th (RBC) [Ratio]Ordered By: Anastacia Bonilla on 12-12-2024 Erythrocyte distribution width ratio 14.6 % 11.6-14.6 [facility] Erythrocyte distribution wid th ratioOrdered By: Anastacia Bonilla on 12-12-2024 Erythrocyte distribution width (RBC) [Ratio] 14.6 % 11.6-14.6 [facility] Erythrocyte distribution wid th standard deviationOrdered By: Anastacia Bonilla on 12-12-2024 Erythrocyte distribution width (RBC) [Entitic vol] 46.5 fL High 35.1-43.9 [facility] Erythrocyte distribution width (RBC) [Ratio] 46.5 fl High 35.1-43.9 [facility] Erythrocyte distribution width standard deviation 46.5 fl High 35.1-43.9 [facility] Estimation of creatinine binu aranceOrdered By: Anastacia Bonilla on 12-12-2024 Estimated Creatinine Clearance Calc 63.47 ml/min 50-250 [facility] Estimation of creatinine clearance 63.47 ml/min 50-250 [facility] GFR/1.73 sq M.predicted gregory g non-blacks MDRD (S/P/Bld) [Vol rate/Area]Ordered By: Anastacia Bonilla on 12-12-2024 Estimated GFR (MDRD) Non-Af Amer 87 >60 [facility] Comment on above: mL/min/1.73m2 CKD-EP I Creatinine Equation (2020) Glomerular filtration rate (GFR) estimation/1.73 sq m using serum, plasma, or whole b 87 >60 [facility] Glomerular filtration rate ( GFR) estimation/1.73 sq m using serum, plasma, or whole bOrdered By: Anastacia Bonilla on 12-12-2024 GFR/1.73 sq M.predicted among non-blacks MDRD (S/P/Bld) [Vol rate/Area] 87 mL/min/{1.73_m2} >60 [facility] Glucose [Mass/Vol]Ordered By : Anastacia Bonilla on 12-12-2024 Serum glucose measurement (mass/volume) 80 mg/dL 70-99 [facility] Hematocrit Auto (Bld) [Volum e fraction]Ordered By: Anastacia Bonilla on 12-12-2024 Hematocrit (Bld) [Volume fraction] 44.4 % 37-47 [facility] Automated blood hematocrit (percentage) 44.4 % 37-47 [facility] Hemoglobin measurementOrdere d By: Anastacia Bonilla on 12-12-2024 Hemoglobin (Bld) [Mass/Vol] 13.7 g/dL 12.0-15.0 [facility] Hemoglobin measurement 13.7 g/dL 12.0-15.0 [facility] Lymphocytes Auto (Unsp spec) [#/Vol]Ordered By: Anastacia Bonilla on 12-12-2024 Lymphocytes (Bld) [#/Vol] 4.36 10*3/uL 0.83-4.51 [facility] Absolute lymphocyte count 4.36 X10^3/uL 0.83-4.51 [facility] Lymphocytes/100 WBC (Bld)Ord ered By: Anastacia Bonilla on 12-12-2024 Blood lymphocytes/100 leukocytes 17 % Low 19-41 [facility] MCV (RBC) [Entitic vol]Order ed By: Anastacia Bonilla on 12-12-2024 MCV (mean corpuscular volume) determination 86.2 fL 81-99 [facility] MCV (mean corpuscular volume ) determinationOrdered By: Anastacia Bonilla on 12-12-2024 MCV (RBC) [Entitic vol] 86.2 fL 81-99 [facility] MR/POSTOP.ANEon 12-12-2024 MR/POSTOP.ANE Normal [facility] MR/[id number] 12-12-2024 MR/POSTOPAN2 Normal [facility] Manual differential comment Geovany (Bld) [Interp]Ordered By: Anastacia Bonilla on 12-12-2024 Differential Comment SCANNED [facility] Comment on above: LYMPHOCYTOSIS PRESEN TMONOCYTOSIS PRESENT Blood manual differential comment interpretation (narrative result) SCANNED [facility] Mean corpuscular hemoglobin (MCH) determinationOrdered By: Anastacia Bonilla on 12-12-2024 MCH (RBC) [Entitic mass] 26.6 pg Low 27.0-32.0 [facility] Mean corpuscular hemoglobin (MCH) determination 26.6 pg Low 27.0-32.0 [facility] Mean corpuscular hemoglobin concentration (MCHC) determinationOrdered By: Anastacia Bonilla on 12-12-2024 MCHC (RBC) [Mass/Vol] 30.9 g/dL Low 32-36 [facility] Mean corpuscular hemoglobin concentration (MCHC) determination 30.9 g/dL Low 32-36 [facility] Mean platelet volume determi nationOrdered By: Anastacia Bonilla on 12-12-2024 Platelet mean volume (Bld) [Entitic vol] 10.1 fL 6.2-12.0 [facility] Mean platelet volume determination 10.1 fl 6.2-12.0 [facility] Metamyelocytes/100 WBC (Bld) Ordered By: Anastacia Bonilla on 12-12-2024 Blood metamyelocytes/100 leukocytes 1 % 0-1 [facility] Monocytes/100 WBC (Bld)Order ed By: Anastacia Bonilla on 12-12-2024 Blood monocytes/100 leukocytes 5 % 0-10 [facility] Myelocyte %Ordered By: Anastacia Bonilla on 12-12-2024 Myelocytes/100 WBC (Bld) 7 % High 0-0 [facility] Myelocyte % 7 % High 0-0 [facility] Neutrophil percentageOrdered By: Anastacia Bonilla on 12-12-2024 Neutrophils (%) (Auto) Not Reportable [facility] Neutrophil percentage Not Reportable [facility] Pathologist review Geovany (Unsp spec) [Interp]Ordered By: Anastacia Bonilla on 12-12-2024 Differential Pathologist's Review January [facility] Review by pathologist January [facility] Review by pathologist N/A [facility] Platelet countOrdered By: Emily Bonilla on 12-12-2024 Platelets (Bld) [#/Vol] 345 10*3/uL 150-450 [facility] Platelet count 345 K/mm3 150-450 [facility] Potassium (Unsp spec) [Mass/ Vol]Ordered By: Anastacia Bonilla on 12-12-2024 Potassium [Moles/Vol] 4.1 mmol/L 3.3-5.1 [facility] Potassium measurement (mass/volume) 4.1 mmol/L 3.3-5.1 [facility] Potassium measurement (mass/ volume)Ordered By: Anastacia Bonilla on 12-12-2024 Potassium (Unsp spec) [Mass/Vol] 4.1 mmol/L 3.3-5.1 [facility] RBC Auto (Bld) [#/Vol]Ordere d By: Anastacia Bonilla on 12-12-2024 RBC (Bld) [#/Vol] 5.15 10*6/uL 4.2-5.4 [facility] Automated blood erythrocyte count 5.15 M/mm3 4.2-5.4 [facility] Review by pathologistOrdered By: Anastacia Bonilla on 12-12-2024 Pathologist review Geovany (Unsp spec) [Interp] N/A [facility] Segmented neutrophils/100 WB C (Bld)Ordered By: Anastacia Bonilla on 12-12-2024 Neutrophils/100 WBC (Bld) 65 % 47-70 [facility] Blood segmented neutrophils/100 leukocytes 65 % 47-70 [facility] Serum creatinine measurement (mass/volume)Ordered By: Anastacia Bonilla on 12-12-2024 Creatinine [Mass/Vol] 0.77 mg/dL 0.70-1.20 [facility] Serum glucose measurement (m ass/volume)Ordered By: Anastacia Bonilla on 12-12-2024 Glucose [Mass/Vol] 80 mg/dL 70-99 [facility] Serum or plasma calcium esthela urement (mass/volume)Ordered By: Anastacia Bonilla on 12-12-2024 Calcium [Mass/Vol] 8.9 mg/dL 7.6-11.0 [facility] Serum or plasma urea nitroge n measurement (mass/volume)Ordered By: Anastacia Bonilla on 12-12-2024 Urea nitrogen [Mass/Vol] 25 mg/dL High 01-14 [facility] Sodium levelOrdered By: Anastacia Bonilla on 12-12-2024 Sodium [Moles/Vol] 137 mmol/L 133-145 [facility] Sodium level 137 mmol/L 133-145 [facility] Total cell countOrdered By: Anastacia Bonilla on 12-12-2024 Cells counted Molgen (Bld/Tiss) [#] 100 MANUAL DIFF [facility] Urea nitrogen [Mass/Vol]Orde red By: Anastacia Bonilla on 12-12-2024 Serum or plasma urea nitrogen measurement (mass/volume) 25 mg/dL High 01-14 [facility] White blood cell (WBC) count Ordered By: Anastacia Bonilla on 12-12-2024 WBC (Bld) [#/Vol] 25.7 10*3/uL High 4.4-11.0 [facility] White blood cell (WBC) count 25.7 K/mm3 High 4.4-11.0 [facility] Basic Metabolic Profile (BMP )on 12-11-2024 BUN/CRE 36.7 RATIO High 10-20 [facility] Comment on above: Performed By: #### L 100.0100, L500.2500 ####[facility] [address] [place], [address] Calcium [Mass/Vol] 9.0 mg/dL Normal 7.6-11.0 [facility] Comment on above: Performed By: #### L 100.0100, L500.2500 ####[facility] [address] [place], [address] Chloride [Moles/Vol] 96 mmol/L Low 98-108 [facility] Comment on above: Performed By: #### L 100.0100, L500.2500 ####[facility] [address] [place], [address] CO2 [Moles/Vol] 27.6 mmol/L Normal 21.0-32.0 [facility] Comment on above: Performed By: #### L 100.0100, L500.2500 ####[facility] [address] [place], [address] Creatinine [Mass/Vol] 0.79 mg/dL Normal 0.70-1.20 [facility] Comment on above: Performed By: #### L 100.0100, L500.2500 ####[facility] [address] [place], [address] ECRCL 61.86 ml/min Normal 50-250 [facility] Comment on above: Performed By: #### L 100.0100, L500.2500 ####[facility] [address] [place], [address] GAP 13 Normal 5-15 [facility] Comment on above: Performed By: #### L 100.0100, L500.2500 ####[facility] [address] [place], [address] GFR/1.73 sq M.predicted among non-blacks MDRD (S/P/Bld) [Vol rate/Area] 85 mL/min/{1.73_m2} Normal >60 [facility] Comment on above: Result Comment: mL/m in/1.73m2 CKD-EPI Creatinine Equation (2020) Performed By: #### L 100.0100, L500.2500 ####[facility] [address] [place], [address] Glucose [Mass/Vol] 79 mg/dL Normal 70-99 [facility] Comment on above: Performed By: #### L 100.0100, L500.2500 ####[facility] [address] [place], [address] Potassium [Moles/Vol] 4.4 mmol/L Normal 3.3-5.1 [facility] Comment on above: Performed By: #### L 100.0100, L500.2500 ####[facility] [address] [place], [address] Sodium [Moles/Vol] 137 mmol/L Normal 133-145 [facility] Comment on above: Performed By: #### L 100.0100, L500.2500 ####[facility] [address] [place], [address] Urea nitrogen [Mass/Vol] 29 mg/dL High 4-19 [facility] Comment on above: Performed By: #### L 100.0100, L500.2500 ####[facility] [address] [place], [address] Gram Stainon 12-11-2024 GS Acceptable Specimen? Yes (<25 Epithelial cells per/lpf) Gram Stain 1+ Gram positive cocci 1+ Epithelial cells No White Blood Cells Normal [facility] Comment on above: Performed By: #### M 100.2000, M100.2400 ####[facility] [address] [place], [address] Laboratory - Hematology and Cell countsOrdered By: Anastacia Bonilla on 12-11-2024 Anisocytosis Ql (Bld) 1+ [facility] Microcytosis evaluation pane lOrdered By: Anastacia Bonilla on 12-11-2024 Microcytosis 1+ [facility] Microcytosis evaluation panel 1+ [facility] Ovalocyte detectionOrdered B y: Anastacia Bonilla on 12-11-2024 Ovalocytes LM Ql (Bld) 1+ [facility] Ovalocytes LM Ql (Bld)Ordere d By: Anastacia Bonilla on 12-11-2024 Ovalocytes 1+ [facility] Platelet estimateOrdered By: Anastacia Bonilla on 12-11-2024 Platelets LM Ql (Bld) ADEQUATE ADEQ [facility] Platelets LM Ql (Bld)Ordered By: Anastacia Bonilla on 12-11-2024 Platelet Est[facility] Platelet estimate ADEQUATE [facility] Basic Metabolic Profile (BMP )on 12-10-2024 BUN/CRE 41.3 RATIO High 10-20 [facility] Comment on above: Performed By: #### L 100.0100, L500.2500 ####[facility] [address] [place], [address] Calcium [Mass/Vol] 9.5 mg/dL Normal 7.6-11.0 [facility] Comment on above: Performed By: #### L 100.0100, L500.2500 ####[facility] [address] [place], [address] Chloride [Moles/Vol] 97 mmol/L Low 98-108 [facility] Comment on above: Performed By: #### L 100.0100, L500.2500 ####[facility] [address] [place], [address] CO2 [Moles/Vol] 28.4 mmol/L Normal 21.0-32.0 [facility] Comment on above: Performed By: #### L 100.0100, L500.2500 ####[facility] [address] [place], [address] Creatinine [Mass/Vol] 0.82 mg/dL Normal 0.70-1.20 [facility] Comment on above: Performed By: #### L 100.0100, L500.2500 ####[facility] [address] [place], [address] ECRCL 59.60 ml/min Normal 50-250 [facility] Comment on above: Performed By: #### L 100.0100, L500.2500 ####[facility] [address] [place], [address] GAP 11 Normal 5-15 [facility] Comment on above: Performed By: #### L 100.0100, L500.2500 ####[facility] [address] [place], [address] GFR/1.73 sq M.predicted among non-blacks MDRD (S/P/Bld) [Vol rate/Area] 81 mL/min/{1.73_m2} Normal >60 [facility] Comment on above: Result Comment: mL/m in/1.73m2 CKD-EPI Creatinine Equation (2020) Performed By: #### L 100.0100, L500.2500 ####[facility] [address] [place], [address] Glucose [Mass/Vol] 157 mg/dL High 70-99 [facility] Comment on above: Performed By: #### L 100.0100, L500.2500 ####[facility] [address] [place], [address] Potassium [Moles/Vol] 5.2 mmol/L High 3.3-5.1 [facility] Comment on above: Performed By: #### L 100.0100, L500.2500 ####[facility] [address] [place], [address] Sodium [Moles/Vol] 136 mmol/L Normal 133-145 [facility] Comment on above: Performed By: #### L 100.0100, L500.2500 ####[facility] [address] [place], [address] Urea nitrogen [Mass/Vol] 34 mg/dL High 4-19 [facility] Comment on above: Performed By: #### L 100.0100, L500.2500 ####[facility] [address] [place], [address] Blood eosinophils/100 leukoc ytesOrdered By: Anastacia Bonilla on 12-10-2024 Eosinophils/100 WBC (Bld) 1 % 0-5 [facility] Eosinophils/100 WBC (Bld)Ord ered By: Anastacia Bonilla on 12-10-2024 Blood eosinophils/100 leukocytes 1 % 0-5 [facility] Gram stainOrdered By: Ever Aguayo on 12-10-2024 Microscopic observation Gram stain Nom (Unsp spec) [facility] Microbial respiratory cultur eOrdered By: Aleta Aguayo on 12-10-2024 Microorganism identified Cx Nom (Unsp spec) or Staphylococcus aureus isolated. [facility] Microorganism identified Cx Nom (Unsp spec)Ordered By: Aleta Aguayo on 12-10-2024 Microbial respiratory culture or Staphylococcus aureus isolated. [facility] Platelet morphologyOrdered B y: Anastacia Bonilla on 12-10-2024 Platelet morphology finding Nom (Bld) G [facility] Platelet morphology finding Nom (Bld)Ordered By: Anastacia Bonilla on 12-10-2024 Platelet Morphology Comment G [facility] Platelet morphology G [facility] Basic Metabolic Profile (BMP )on 12-09-2024 BUN/CRE 40.8 RATIO High 10-20 [facility] Comment on above: Performed By: #### L 500.2500 ####[facility] [address] [facility] [address] Calcium [Mass/Vol] 9.8 mg/dL Normal 7.6-11.0 [facility] Comment on above: Performed By: #### L 500.2500 ####[facility] [address] [place], [address] Chloride [Moles/Vol] 96 mmol/L Low 98-108 [facility] Comment on above: Performed By: #### L 500.2500 ####[facility] [address] [facility] [address] CO2 [Moles/Vol] 27.3 mmol/L Normal 21.0-32.0 [facility] Comment on above: Performed By: #### L 500.2500 ####[facility] [address] [place], [address] Creatinine [Mass/Vol] 0.85 mg/dL Normal 0.70-1.20 [facility] Comment on above: Performed By: #### L 500.2500 ####[facility] [address] [place], [address] ECRCL 57.49 ml/min Normal 50-250 [facility] Comment on above: Performed By: #### L 500.2500 ####[facility] [address] [place], [address] GAP 13 Normal 5-15 [facility] Comment on above: Performed By: #### L 500.2500 ####[facility] [address] [place], [address] GFR/1.73 sq M.predicted among non-blacks MDRD (S/P/Bld) [Vol rate/Area] 78 mL/min/{1.73_m2} Normal >60 [facility] Comment on above: Result Comment: mL/m in/1.73m2 CKD-EPI Creatinine Equation (2020) Performed By: #### L 500.2500 ####[facility] [address] [place], [address] Glucose [Mass/Vol] 176 mg/dL High 70-99 [facility] Comment on above: Performed By: #### L 500.2500 ####[facility] [address] [place], [address] Potassium [Moles/Vol] 5.0 mmol/L Normal 3.3-5.1 [facility] Comment on above: Performed By: #### L 500.2500 ####[facility] [address] [place], [address] Sodium [Moles/Vol] 135 mmol/L Normal 133-145 [facility] Comment on above: Performed By: #### L 500.2500 ####[facility] [address] [place], [address] Urea nitrogen [Mass/Vol] 35 mg/dL High 4-19 [facility] Comment on above: Performed By: #### L 500.2500 ####[facility] [address] [place], [address] Erythrocyte morphology asses smentOrdered By: Gonzalo Sebastian on 12-09-2024 RBC morphology finding Nom (Bld) NORM C+C NORMAL NORM C&C [facility] RBC morphology finding Nom ( Bld)Ordered By: Gonzalo Sebastian on 12-09-2024 Red Blood Cell Morphology NORM C+C NORMAL NORM C&C [facility] Erythrocyte morphology assessment NORM C+C NORMAL NORM C&C [facility] CBC W/Diff, Automatedon 11-26 Absolute Neut Normal 2.0-7.7 [facility] Comment on above: Result Comment: Canc elled via OM: Order edited - Discontinuing original order Performed By: #### L 100.0100 ####[facility] [address] [place], [address] HCT Normal 37-47 [facility] Comment on above: Result Comment: Canc elled via OM: Order edited - Discontinuing original order Performed By: #### L 100.0100 ####[facility] [address] [place], [address] HGB Normal 12.0-15.0 [facility] Comment on above: Result Comment: Canc elled via OM: Order edited - Discontinuing original order Performed By: #### L 100.0100 ####[facility] [address] [place], [address] MCH Normal 27.0-32.0 [facility] Comment on above: Result Comment: Canc elled via OM: Order edited - Discontinuing original order Performed By: #### L 100.0100 ####[facility] [address] [place], [address] MCHC Normal 32-36 [facility] Comment on above: Result Comment: Canc elled via OM: Order edited - Discontinuing original order Performed By: #### L 100.0100 ####[facility] [address] [place], [address] MCV Normal 81-99 [facility] Comment on above: Result Comment: Canc elled via OM: Order edited - Discontinuing original order Performed By: #### L 100.0100 ####[facility] [address] [place], [address] NEUT% Normal 47-70 [facility] Comment on above: Result Comment: Canc elled via OM: Order edited - Discontinuing original order Performed By: #### L 100.0100 ####[facility] [address] [place], [address] PLT Normal 150-450 [facility] Comment on above: Result Comment: Canc elled via OM: Order edited - Discontinuing original order Performed By: #### L 100.0100 ####[facility] [address] [place], [address] RBC Normal 4.2-5.4 [facility] Comment on above: Result Comment: Canc elled via OM: Order edited - Discontinuing original order Performed By: #### L 100.0100 ####[facility] [address] [place], [address] RDW CV Normal 11.6-14.6 [facility] Comment on above: Result Comment: Canc elled via OM: Order edited - Discontinuing original order Performed By: #### L 100.0100 ####[facility] [address] [place], [address] RDW SD Normal 35.1-43.9 [facility] Comment on above: Result Comment: Canc elled via OM: Order edited - Discontinuing original order Performed By: #### L 100.0100 ####[facility] [address] [place], [place], [address] WBC Normal 4.4-11.0 [facility] Comment on above: Result Comment: Canc elled via OM: Order edited - Discontinuing original order Performed By: #### L 100.0100 ####[facility] [address] [place], [place], [id number] Modified Barium Swallow Stud yon 12-08-2024 Modified Barium Swallow Study Normal [facility] Influenza virus A and B and SARS-CoV-2 (COVID-19) and Respiratory syncytial virus RNAOrdered By: Gonzalo Sebastian on 12-07-2024 SARS-CoV-2 (COVID-19) RNA KANDY+probe Ql (Unsp spec) [facility] L503.7505on 12-07-2024 Natriuretic peptide B (Bld) [Mass/Vol] 3318 pg/mL High <=900 [facility] Comment on above: Result Comment: Hear t Failure Unlikely: < 300 pg/mLHeart Failure Likely< 50 Years: > 450 pg/mL50-75 Years: > 900 pg/mL>75 Years: > 1800 pg/mL Performed By: #### L 503.7505 ####[facility] [address] [place], [address] Laboratory - Chemistry and C hemistry - challengeOrdered By: Gonzalo Sebastian on 12-07-2024 Natriuretic peptide B (Bld) [Mass/Vol] 3318 pg/mL High <900 [facility] Comment on above: Heart Failure Unlike ly: < 300 pg/mLHeart Failure Likely< 50 Years: > 450 pg/mL50-75 Years: > 900 pg/mL>75 Years: > 1800 pg/mL M100.678on 12-07-2024 M100.678 Pending SARS-CoV-2 (COVID 19) Negative INFLUENZA A Negative INFLUENZA B Negative RSV PCR Negative Normal [facility] [facility] Comment on above: Performed By: #### M 100.678 ####[facility] [address] [place], [address] No Panel InformationOrdered By: Gonzalo Sebastian on 12-07-2024 3318 pg/mL High <900 [facility] Absolute neutrophil countOrd ered By: Gonzalo Sebastian on 12-06-2024 Neutrophils (Bld) [#/Vol] 23.2 10*3/uL High 2.0-7.7 [facility] Anion gap in Serum or Plasma Ordered By: Gonzalo Sebastian on 12-06-2024 Anion gap [Moles/Vol] 13 mmol/L 5-15 [facility] Automated lymphocyte count a s percentage of total leukocytesOrdered By: Gonzalo Sebastian on 12-06-2024 Lymphocytes/100 WBC Auto (Unsp spec) 4.5 % Low 19-41 [facility] BUN/creatinine ratioOrdered By: Gonzalo Sebastian on 12-06-2024 Urea nitrogen/Creatinine [Mass ratio] 27.8 mg/mg High 10-20 [facility] Basic Metabolic Profile (BMP )on 12-06-2024 BUN/CRE 27.8 RATIO High 10-20 [facility] Comment on above: Performed By: #### L 503.7505, L500.2500, L100.0100, L509.7001 ####[facility] [address] [place], [address] Calcium [Mass/Vol] 9.3 mg/dL Normal 7.6-11.0 [facility] Comment on above: Performed By: #### L 503.7505, L500.2500, L100.0100, L509.7001 ####[facility] [address] [place], [address] Chloride [Moles/Vol] 98 mmol/L Normal 98-108 [facility] Comment on above: Performed By: #### L 503.7505, L500.2500, L100.0100, L509.7001 ####[facility] [address] [place], [address] CO2 [Moles/Vol] 23.2 mmol/L Normal 21.0-32.0 [facility] Comment on above: Performed By: #### L 503.7505, L500.2500, L100.0100, L509.7001 ####[facility] [address] [place], [address] Creatinine [Mass/Vol] 1.57 mg/dL High 0.70-1.20 [facility] Comment on above: Performed By: #### L 503.7505, L500.2500, L100.0100, L509.7001 ####[facility] [address] [place], [address] ECRCL 31.13 ml/min Low 50-250 [facility] Comment on above: Performed By: #### L 503.7505, L500.2500, L100.0100, L509.7001 ####[facility] [address] [place], [address] GAP 13 Normal 5-15 [facility] Comment on above: Performed By: #### L 503.7505, L500.2500, L100.0100, L509.7001 ####[facility] [address] [place], [address] GFR/1.73 sq M.predicted among non-blacks MDRD (S/P/Bld) [Vol rate/Area] 37 mL/min/{1.73_m2} Low >60 [facility] Comment on above: Result Comment: mL/m in/1.73m2 CKD-EPI Creatinine Equation (2020) Performed By: #### L 503.7505, L500.2500, L100.0100, L509.7001 ####[facility] [address] [place], [address] Glucose [Mass/Vol] 166 mg/dL High 70-99 [facility] Comment on above: Performed By: #### L 503.7505, L500.2500, L100.0100, L509.7001 ####[facility] [address] [place], [address] Potassium [Moles/Vol] 4.9 mmol/L Normal 3.3-5.1 [facility] Comment on above: Performed By: #### L 503.7505, L500.2500, L100.0100, L509.7001 ####[facility] [address] [place], [address] Sodium [Moles/Vol] 134 mmol/L Normal 133-145 [facility] Comment on above: Performed By: #### L 503.7505, L500.2500, L100.0100, L509.7001 ####[facility] [address] [place], [address] Urea nitrogen [Mass/Vol] 44 mg/dL High 4-19 [facility] Comment on above: Performed By: #### L 503.7505, L500.2500, L100.0100, L509.7001 ####[facility] [address] [place], [address] Basophil percentageOrdered B y: Gonzalo Sebastian on 12-06-2024 Basophils/100 WBC (Bld) 0.2 % 0-1 [facility] Basophil percentage 0.2 % 0-1 [facility] Carbon dioxide, total [Moles /volume] in Central venous bloodOrdered By: Gonzalo Sebastian on 12-06-2024 CO2 [Moles/Vol] 23.2 mmol/L 21.0-32.0 [facility] Chloride assayOrdered By: Soares on 12-06-2024 Chloride [Moles/Vol] 98 mmol/L 98-108 [facility] Echocardiogram study reportO rdered By: Bridgette Gaxiola on 12-06-2024 Study report [facility] [address] [place] [address] Echo Complete 12/05/24 1413 MR#: [id number] Acct: [id number] Name: GRACIE BANUELOS Rep #:[id number] : 1965 59 From: Bridgette lopez MD Attending Dr: Dr. Yrn Kahn DO Status: ADM IN Ordering Dr: Gonzalo Sebastian DO Date: 07/22 Location: [facility] Sex: F C Admitted: 12/04/24 Reason [...] Dictated: 12/05/24 1413 Date Transcribed: 12/06/24 1251 Weathercaster: Signed [facility] Work Phone: [phone] Eosinophil percentageOrdered By: Gonzalo Sebastian on 12-06-2024 Eosinophils/100 WBC (Bld) 0.0 % 0-5 [facility] Eosinophil percentage 0.0 % 0-5 [facility] Erythrocyte distribution wid th ratioOrdered By: Gonzalo Sebastian on 12-06-2024 Erythrocyte distribution width (RBC) [Ratio] 15.3 % High 11.6-14.6 [facility] Erythrocyte distribution wid th standard deviationOrdered By: Gonzalo Sebastian on 12-06-2024 Erythrocyte distribution width (RBC) [Entitic vol] 47.7 fL High 35.1-43.9 [facility] Estimation of creatinine binu aranceOrdered By: Gonzalo Sebastian on 12-06-2024 Estimated Creatinine Clearance Calc 31.13 ml/min Low 50-250 [facility] GFR/1.73 sq M.predicted gregory g non-blacks MDRD (S/P/Bld) [Vol rate/Area]Ordered By: Gonzalo Sebastian on 12-06-2024 Estimated GFR (MDRD) Non-Af Amer 37 Low >60 [facility] Comment on above: mL/min/1.73m2 CKD-EP I Creatinine Equation (2020) Hematocrit Auto (Bld) [Volum e fraction]Ordered By: Gonzalo Sebastian on 12-06-2024 Hematocrit (Bld) [Volume fraction] 39.6 % 37-47 [facility] Hemoglobin measurementOrdere d By: Gonzalo Sebastian on 12-06-2024 Hemoglobin (Bld) [Mass/Vol] 12.6 g/dL 12.0-15.0 [facility] Immature granulocytes/100 WB C Auto (Bld)Ordered By: Gonzalo Sebastian on 03-11-2025 Immature granulocytes/100 WBC (Bld) 0.900 % 0.0-0.9 [facility] Comment on above: IG% - Immature Granu locytes (promyelocytes, myelocytes and metamyelocytes) > 1% indicates that a LEFT SHIFT is Present. Automated immature granulocyte percentage 0.900 % 0.0-0.9 [facility] L503.7505on 12-06-2024 Natriuretic peptide B (Bld) [Mass/Vol] 2014 pg/mL High <=900 [facility] Comment on above: Result Comment: Hear t Failure Unlikely: < 300 pg/mLHeart Failure Likely< 50 Years: > 450 pg/mL50-75 Years: > 900 pg/mL>75 Years: > 1800 pg/mL Performed By: #### L 503.7505, L500.2500, L100.0100, L509.7001 ####[facility] [address] [place], [place], [id number] L509.7001on 12-06-2024 Procalcitonin 0.31 ng/mL High <=0.10 [facility] Comment on above: Result Comment: Inte [...] By: #### L 503.7505, L500.2500, L100.0100, L509.7001 ####[facility] [address] [place], [place], [id number] Lymphocytes Auto (Unsp spec) [#/Vol]Ordered By: Gonzalo Sebastian on 12-06-2024 Lymphocytes (Bld) [#/Vol] 1.17 10*3/uL 0.83-4.51 [facility] Lymphocytes/100 WBC Auto (Un sp spec)Ordered By: Gonzalo Sebastian on 03-11-2025 Lymphocytes/100 WBC (Bld) 4.5 % Low 19-41 [facility] Automated lymphocyte count as percentage of total leukocytes 4.5 % Low 19-41 [facility] MCV (mean corpuscular volume ) determinationOrdered By: Gonzalo Sebastian on 12-06-2024 MCV (RBC) [Entitic vol] 85.7 fL 81-99 [facility] Mean corpuscular hemoglobin (MCH) determinationOrdered By: Gonzalo Sebastian on 12-06-2024 MCH (RBC) [Entitic mass] 27.3 pg 27.0-32.0 [facility] Mean corpuscular hemoglobin concentration (MCHC) determinationOrdered By: Gonzalo Sebastian on 12-06-2024 MCHC (RBC) [Mass/Vol] 31.8 g/dL Low 32-36 [facility] Mean platelet volume determi nationOrdered By: Gonzalo Sebastian on 12-06-2024 Platelet mean volume (Bld) [Entitic vol] 10.5 fL 6.2-12.0 [facility] Monocyte percentageOrdered B y: Gonzalo Sebastian on 12-06-2024 Monocytes/100 WBC (Bld) 6.0 % 0-10 [facility] Monocyte percentage 6.0 % 0-10 [facility] Neutrophil percentageOrdered By: Gonzalo Sebastian on 12-06-2024 Neutrophils/100 WBC (Bld) 88.4 % High 47-70 [facility] No Panel InformationOrdered By: Gonzalo Sebastian on 12-06-2024 Procalcitonin 0.31 ng/mL High <0.11 [facility] Comment on above: Interpretation:<0.10 -0.25 ng/mL: [...] of the patient. 0.31 ng/mL High <0.11 [facility] Nucleated red blood cell per centageOrdered By: Gonzalo Sebastian on 12-06-2024 Nucleated RBC/100 WBC (Bld) [Ratio] 0 % 0-5 [facility] Nucleated red blood cell percentage 0 % 0-5 [facility] Pathologist review Geovany (Unsp spec) [Interp]Ordered By: Gonzalo Sebastian on 12-06-2024 Differential Pathologist's Review May foll [facility] Platelet countOrdered By: Soares on 12-06-2024 Platelets (Bld) [#/Vol] 260 10*3/uL 150-450 [facility] Platelets LM Ql (Bld)Ordered By: Gonzalo Sebastian on 12-06-2024 Platelet Estimate A ADEQ [facility] Potassium (Unsp spec) [Mass/ Vol]Ordered By: Gonzalo Sebastian on 12-06-2024 Potassium [Moles/Vol] 4.9 mmol/L 3.3-5.1 [facility] RBC Auto (Bld) [#/Vol]Ordere d By: Gonzalo Sebastian on 12-06-2024 RBC (Bld) [#/Vol] 4.62 10*6/uL 4.2-5.4 [facility] Serum creatinine measurement (mass/volume)Ordered By: Gonzalo Sebastian on 12-06-2024 Creatinine [Mass/Vol] 1.57 mg/dL High 0.70-1.20 [facility] Serum glucose measurement (m ass/volume)Ordered By: Gonzalo Sebastian on 12-06-2024 Glucose [Mass/Vol] 166 mg/dL High 70-99 [facility] Serum or plasma calcium esthela urement (mass/volume)Ordered By: Gonzalo Sebastian on 12-06-2024 Calcium [Mass/Vol] 9.3 mg/dL 7.6-11.0 [facility] Serum or plasma urea nitroge n measurement (mass/volume)Ordered By: Gonzalo Sebastian on 12-06-2024 Urea nitrogen [Mass/Vol] 44 mg/dL High 4-19 [facility] Sodium levelOrdered By: Matt Sebastian on 12-06-2024 Sodium [Moles/Vol] 134 mmol/L 133-145 [facility] White blood cell (WBC) count Ordered By: Gonzalo Sebastian on 12-06-2024 WBC (Bld) [#/Vol] 26.2 10*3/uL High 4.4-11.0 [facility] ALP [Catalytic activity/Vol] Ordered By: Aleta Aguayo on 12-05-2024 Serum or plasma alkaline phosphatase measurement 149 U/L High 35-104 [facility] ALT [Catalytic activity/Vol] Ordered By: Aleta Aguayo on 12-05-2024 Serum or plasma alanine aminotransferase (ALT) measurement 39 U/L High <35 [facility] Albumin [Mass/Vol]Ordered By : Aleta Aguayo on 12-05-2024 Serum or plasma albumin measurement (mass/volume) 3.8 g/dL 3.4-4.8 [facility] Albumin/Globulin [Mass ratio ]Ordered By: Aleta Aguayo on 12-05-2024 Serum or plasma albumin/globulin mass ratio 1.2 RATIO 0.9-2.4 [facility] Arterial patency Wrist arter y --pre arterial punctureOrdered By: Yrn Kahn on 12-05-2024 Sergei Test Positive [facility] Assessment of wrist artery patency prior to arterial puncture Positive [facility] Assessment of wrist artery p atency prior to arterial punctureOrdered By: Yrn Kahn on 12-05-2024 Arterial patency Wrist artery --pre arterial puncture Positive [facility] Base excess Calc (BldV) [Mol es/Vol]Ordered By: Yrn Kahn on 12-05-2024 Blood Gas Base Excess -1 mmol/L -2-2 [facility] Blood base excess determination -1 mmol/L -2-2 [facility] Bilirubin, totalOrdered By: Aleta Aguayo on 12-05-2024 Bilirubin [Mass/Vol] 0.18 mg/dL 0.00-1.30 [facility] Bilirubin, total 0.18 mg/dL 0.00-1.30 [facility] Blood Gases by CPSon 025 Base excess Calc (Bld) [Moles/Vol] -1 mmol/L Normal -2 to +2 [facility] Comment on above: Performed By: #### L 8999.799 ####[facility] [address] [place], [address] Blood Gas Type ART Normal [facility] Comment on above: Performed By: #### L 8999.00 ####[facility] [address] [place], [address] CO2 [Moles/Vol] 28 mmol/L Normal [facility] Comment on above: Performed By: #### L 9000.0800 ####[facility] [address] [place], [address] Comment 60 75 Normal [facility] Comment on above: Performed By: #### L 9000.0800 ####[facility] [address] [place], [address] HCO3 (Bld) [Moles/Vol] 26.4 mmol/L High 22-26 [facility] Comment on above: Performed By: #### L 9000.0800 ####[facility] [address] [place], [address] Mode Not entered [facility] Comment on above: Performed By: #### L 9000.0800 ####[facility] [address] [place], [address] O2 Delivery Dev Not entered Normal [facility] Comment on above: Performed By: #### L 9000.0800 ####[facility] [address] [place], [address] pCO2 61.0 mmHg High 35-45 [facility] Comment on above: Performed By: #### L 9000.0800 ####[facility] [address] [place], [address] pH (Bld) 7.24 [pH] Low 7.35-7.45 [facility] Comment on above: Performed By: #### L 9000.0800 ####[facility] [address] [place], [address] PO2 68 mmHG Low 75-100 [facility] Comment on above: Performed By: #### L 0.0800 ####[facility] [address] [place], [address] SITE R Radial Normal [facility] Comment on above: Performed By: #### L 0.0800 ####[facility] [address] [place], [address] SO2 89 Low 95-99 [facility] Comment on above: Performed By: #### L 0.0800 ####[facility] [address] [place], [address] SERGEI TEST Positive Normal [facility] Comment on above: Performed By: #### L 9000.0800 ####[facility] [address] [place], [address] Base excess Calc (Bld) [Moles/Vol] -3 mmol/L Low -2 to +2 [facility] Comment on above: Performed By: #### L 0.0800 ####[facility] [address] [place], [address] Blood Gas Type ART Normal [facility] Comment on above: Performed By: #### L 8999.0800 ####[facility] [address] [place], [address] CO2 [Moles/Vol] 25 mmol/L Normal [facility] Comment on above: Performed By: #### L 0.0800 ####[facility] [address] [place], [address] Comment 425 Normal [facility] Comment on above: Performed By: #### L 9000.0800 ####[facility] [address] [place], [address] FI02 45.0 Normal [facility] Comment on above: Performed By: #### L 0.0800 ####[facility] [address] [place], [address] HCO3 (Bld) [Moles/Vol] 23.8 mmol/L Normal 22-26 [facility] Comment on above: Performed By: #### L 9000.0800 ####[facility] [address] [place], [address] Mode Not entered Normal [facility] Comment on above: Performed By: #### L 9000.0800 ####[facility] [address] [place], [address] O2 Delivery Dev BiPAP Normal [facility] Comment on above: Performed By: #### L 9000.0800 ####[facility] [address] [place], [address] pCO2 51.6 mmHg High 35-45 [facility] Comment on above: Performed By: #### L 9000.0800 ####[facility] [address] [place], [address] pH (Bld) 7.27 [pH] Low 7.35-7.45 [facility] Comment on above: Performed By: #### L 9000.0800 ####[facility] [address] [place], [address] PO2 57 mmHG Low 75-100 [facility] Comment on above: Performed By: #### L 9000.0800 ####[facility] [address] [place], [address] RR 14 Normal [facility] Comment on above: Performed By: #### L 9000.0800 ####[facility] [address] [place], [address] SITE R Radial Normal [facility] Comment on above: Performed By: #### L 9000.0800 ####[facility] [address] [place], [address] SO2 85 Low 95-99 [facility] Comment on above: Performed By: #### L 9000.0800 ####[facility] [address] [place], [address] Blood base excess determinat ionOrdered By: Yrn Kahn on 12-05-2024 Base excess Calc (BldV) [Moles/Vol] -1 mmol/L -2-2 [facility] Blood bicarbonate measuremen tOrdered By: Yrn Kahn on 12-05-2024 Blood Gas Bicarbonate Actual 26.4 mmol/L High [facility] HCO3 (Bld) [Moles/Vol] 26.4 mmol/L High [facility] Blood bicarbonate measurement 26.4 mmol/L High [facility] CBC W/Diff, Automatedon 11-26 Absolute Lymph 0.86 X10 3/uL Normal 0.83-4.51 [facility] Comment on above: Performed By: #### L 100.0100, L501.5200, L500.4050, L501.2300 ####[facility] [address] [place], [address] Absolute Neut 15.1 X10 3/uL High 2.0-7.7 [facility] Comment on above: Performed By: #### L 100.0100, L501.5200, L500.4050, L501.2300 ####[facility] [address] [place], [address] Basophils/100 WBC (Bld) 0.4 % Normal 0-1 [facility] Comment on above: Performed By: #### L 100.0100, L501.5200, L500.4050, L501.2300 ####[facility] [address] [place], [address] Eosinophils/100 WBC (Bld) 0.1 % Normal 0-5 [facility] Comment on above: Performed By: #### L 100.0100, L501.5200, L500.4050, L501.2300 ####[facility] [address] [place], [address] Erythrocyte distribution width (RBC) [Ratio] 14.9 % High 11.6-14.6 [facility] Comment on above: Performed By: #### L 100.0100, L501.5200, L500.4050, L501.2300 ####[facility] [address] [place], [address] Hematocrit (Bld) [Volume fraction] 39.2 % Normal 37-47 [facility] Comment on above: Performed By: #### L 100.0100, L501.5200, L500.4050, L501.2300 ####[facility] [address] [place], [address] Hemoglobin (Bld) [Mass/Vol] 12.2 g/dL Normal 12.0-15.0 [facility] Comment on above: Performed By: #### L 100.0100, L501.5200, L500.4050, L501.2300 ####[facility] [address] [place], [address] IG% 1.400 High 0.0-0.9 [facility] Comment on above: Result Comment: IG% - Immature Granulocytes (promyelocytes, myelocytes andmetamyelocytes) > 1% indicates that a LEFT SHIFT is Present. Performed By: #### L 100.0100, L501.5200, L500.4050, L501.2300 ####[facility] [address] [place], [address] Lymphocytes/100 WBC (Bld) 5.1 % Low 19-41 [facility] Comment on above: Performed By: #### L 100.0100, L501.5200, L500.4050, L501.2300 ####[facility] [address] [place], [address] MCH (RBC) [Entitic mass] 26.5 pg Low 27.0-32.0 [facility] Comment on above: Performed By: #### L 100.0100, L501.5200, L500.4050, L501.2300 ####[facility] [address] [place], [address] MCHC (RBC) [Mass/Vol] 31.1 g/dL Low 32-36 [facility] Comment on above: Performed By: #### L 100.0100, L501.5200, L500.4050, L501.2300 ####[facility] [address] [place], [address] MCV (RBC) [Entitic vol] 85.0 fL Normal 81-99 [facility] Comment on above: Performed By: #### L 100.0100, L501.5200, L500.4050, L501.2300 ####[facility] [address] [place], [address] Monocytes/100 WBC (Bld) 4.0 % Normal 0-10 [facility] Comment on above: Performed By: #### L 100.0100, L501.5200, L500.4050, L501.2300 ####[facility] [address] [place], [address] Neutrophils/100 WBC (Bld) 89.0 % High 47-70 [facility] Comment on above: Performed By: #### L 100.0100, L501.5200, L500.4050, L501.2300 ####[facility] [address] [place], [address] Nucleated RBC (Bld) [#/Vol] 0 10*3/uL Normal 0-5 [facility] Comment on above: Performed By: #### L 100.0100, L501.5200, L500.4050, L501.2300 ####[facility] [address] [place], [address] Platelet mean volume (Bld) [Entitic vol] 10.9 fL Normal 6.2-12.0 [facility] Comment on above: Performed By: #### L 100.0100, L501.5200, L500.4050, L501.2300 ####[facility] [address] [place], [address] Platelets (Bld) [#/Vol] 250 10*3/uL Normal 150-450 [facility] Comment on above: Performed By: #### L 100.0100, L501.5200, L500.4050, L501.2300 ####[facility] [address] [place], [address] RBC (Bld) [#/Vol] 4.61 10*6/uL Normal 4.2-5.4 [facility] Comment on above: Performed By: #### L 100.0100, L501.5200, L500.4050, L501.2300 ####[facility] [address] [place], [address] RDW SD 46.7 fl High 35.1-43.9 [facility] Comment on above: Performed By: #### L 100.0100, L501.5200, L500.4050, L501.2300 ####[facility] [address] [place], [address] WBC (Bld) [#/Vol] 16.9 10*3/uL High 4.4-11.0 [facility] Comment on above: Performed By: #### L 100.0100, L501.5200, L500.4050, L501.2300 ####[facility] [address] [place], [address] Comprehensive Metabolic Prof ilon 12-05-2024 Albumin [Mass/Vol] 3.8 g/dL Normal 3.4-4.8 [facility] Comment on above: Performed By: #### L 100.0100, L501.5200, L500.4050, L501.2300 ####[facility] [address] [place], [address] Albumin/Globulin [Mass ratio] 1.2 {ratio} Normal 0.9-2.4 [facility] Comment on above: Performed By: #### L 100.0100, L501.5200, L500.4050, L501.2300 ####[facility] [address] [place], [address] ALK PHOS 149 U/L High 35-104 [facility] Comment on above: Performed By: #### L 100.0100, L501.5200, L500.4050, L501.2300 ####[facility] [address] [place], [address] ALT [Catalytic activity/Vol] 39 U/L High <=34 [facility] Comment on above: Performed By: #### L 100.0100, L501.5200, L500.4050, L501.2300 ####[facility] [address] [place], [address] AST [Catalytic activity/Vol] 62 U/L High <=31 [facility] Comment on above: Performed By: #### L 100.0100, L501.5200, L500.4050, L501.2300 ####[facility] [address] [place], [address] Bilirubin [Mass/Vol] 0.18 mg/dL Normal 0.00-1.30 [facility] Comment on above: Performed By: #### L 100.0100, L501.5200, L500.4050, L501.2300 ####[facility] [address] [place], [address] BUN/CRE 14.0 RATIO Normal 10-20 [facility] Comment on above: Performed By: #### L 100.0100, L501.5200, L500.4050, L501.2300 ####[facility] [address] [place], [address] Calcium [Mass/Vol] 6.7 mg/dL Low 7.6-11.0 [facility] Comment on above: Performed By: #### L 100.0100, L501.5200, L500.4050, L501.2300 ####[facility] [address] [place], [address] Chloride [Moles/Vol] 97 mmol/L Low 98-108 [facility] Comment on above: Performed By: #### L 100.0100, L501.5200, L500.4050, L501.2300 ####[facility] [address] [place], [address] CO2 [Moles/Vol] 21.0 mmol/L Normal 21.0-32.0 [facility] Comment on above: Performed By: #### L 100.0100, L501.5200, L500.4050, L501.2300 ####[facility] [address] [place], [address] Creatinine [Mass/Vol] 1.37 mg/dL High 0.70-1.20 [facility] Comment on above: Performed By: #### L 100.0100, L501.5200, L500.4050, L501.2300 ####[facility] [address] [place], [address] ECRCL 35.67 ml/min Low 50-250 [facility] Comment on above: Performed By: #### L 100.0100, L501.5200, L500.4050, L501.2300 ####[facility] [address] [place], [address] GAP 16 High 5-15 [facility] Comment on above: Performed By: #### L 100.0100, L501.5200, L500.4050, L501.2300 ####[facility] [address] [place], [address] GFR/1.73 sq M.predicted among non-blacks MDRD (S/P/Bld) [Vol rate/Area] 44 mL/min/{1.73_m2} Low >60 [facility] Comment on above: Result Comment: mL/m in/1.73m2 CKD-EPI Creatinine Equation (2020) Performed By: #### L 100.0100, L501.5200, L500.4050, L501.2300 ####[facility] [address] [place], [address] Globulin (S) [Mass/Vol] 3.2 g/dL Normal 2.2-4.2 [facility] Comment on above: Performed By: #### L 100.0100, L501.5200, L500.4050, L501.2300 ####[facility] [address] [place], [address] Glucose [Mass/Vol] 144 mg/dL High 70-99 [facility] Comment on above: Performed By: #### L 100.0100, L501.5200, L500.4050, L501.2300 ####[facility] [address] [place], [address] Potassium [Moles/Vol] 4.8 mmol/L Normal 3.3-5.1 [facility] Comment on above: Performed By: #### L 100.0100, L501.5200, L500.4050, L501.2300 ####[facility] [address] [place], [address] Sodium [Moles/Vol] 134 mmol/L Normal 133-145 [facility] Comment on above: Performed By: #### L 100.0100, L501.5200, L500.4050, L501.2300 ####[facility] [address] [place], [address] T PROT 7.0 g/dL Normal 5.9-8.4 [facility] Comment on above: Performed By: #### L 100.0100, L501.5200, L500.4050, L501.2300 ####[facility] [address] [place], [address] Urea nitrogen [Mass/Vol] 19 mg/dL Normal 4-19 [facility] Comment on above: Performed By: #### L 100.0100, L501.5200, L500.4050, L501.2300 ####[facility] [address] [place], [address] Consultation - Intensiviston 12-05-2024 Consultation - Paint Stock Clerk Normal [facility] Determination of fraction of inspired oxygenOrdered By: Yrn Kahn on 12-05-2024 Blood Gas Oxygen Percent 45.0 [facility] Determination of fraction of inspired oxygen 45.0 [facility] Echo Completeon 12-05-2024 Echo Complete Normal [facility] Electrocardiogram reportOrde red By: Jose Guadalupe Cotter on 12-05-2024 EKG study [facility] [address] [place] [address] 12 Lead EKG 12/04/24 1614 MR#: [id number] Acct: [id number] Name: GRACIE BANUELOS Rep #:[id number] : 1965 59 From: Jose Guadalupe gomez [...] baseline artifact Confirmed by Jose Guadalupe Cotter ([id number]), news video editor LEONARD BAUTISTA ([id number]) on 12/05/2024 10:48:28 AM Referred By: Confirmed By: Jose Guadalupe Cotter 12/05/24 1048 Date _ Jose Guadalupe Cotter MD CC: Dr. Misbah Elkins MD; Dr. Franco Inman MD; Dr. Yrn Kahn, DO ~ Signed [facility] Other Phone: Laboratory - Chemistry and C hemistry - challengeOrdered By: Aleta Aguayo on 12-05-2024 AST [Catalytic activity/Vol] 62 U/L High <32 [facility] Magnesiumon 12-05-2024 Magnesium [Mass/Vol] 2.0 mg/dL Normal 1.5-2.2 [facility] Comment on above: Performed By: #### L 100.0100, L501.5200, L500.4050, L501.2300 ####[facility] [address] [facility] [place], [address] Magnesium (Unsp spec) [Mass/ Vol]Ordered By: Aleta Aguayo on 12-05-2024 Magnesium [Mass/Vol] 2.0 mg/dL 1.5-2.2 [facility] Magnesium measurement (mass/volume) 2.0 mg/dL 1.5-2.2 [facility] Magnesium measurement (mass/ volume)Ordered By: Aleta Aguayo on 12-05-2024 Magnesium (Unsp spec) [Mass/Vol] 2.0 mg/dL 1.5-2.2 [facility] Measurement, pHOrdered By: Mike Kahn on 12-05-2024 pH (Unsp spec) 7.24 [pH] Low 7.35-7.45 [facility] No Panel InformationOrdered By: Yrn Kahn on 12-05-2024 Blood Gas Clinical Comments 60 75 [facility] Blood Gas Sample Site R Radial [facility] Blood Gas Specimen Type ART [facility] Blood Gas Vent Mode Not entered [facility] Oxygen Delivery Device Not entered [facility] ART [facility] R Radial [facility] Not entered [facility] 60 75 [facility] Blood Gas Respiration Rate 14 [facility] 14 [facility] No Panel InformationOrdered By: Aleta Aguayo on 12-05-2024 62 U/L High <32 [facility] Oxygen saturation measuremen tOrdered By: Yrn Kahn on 12-05-2024 Blood Gas Oxygen Saturation 89 % Low 95-99 [facility] Oxygen saturation measurement 89 % Low 95-99 [facility] Partial pressure of carbon d ioxide measurementOrdered By: Yrn Kahn on 12-05-2024 Arterial Blood Partial Pressure CO2 61.0 mmHg High 35-45 [facility] Partial pressure of carbon dioxide measurement 61.0 mmHg High 35-45 [facility] Partial pressure of oxygen m easurementOrdered By: Yrn Kahn on 12-05-2024 Arterial Blood Partial Pressure O2 68 mmHG Low 75-100 [facility] Partial pressure of oxygen measurement 68 mmHG Low 75-100 [facility] Phosphoruson 12-05-2024 Phosphate [Mass/Vol] 6.2 mg/dL High 2.7-4.5 [facility] Comment on above: Performed By: #### L 100.0100, L501.5200, L500.4050, L501.2300 ####[facility] [address] [place], [place], [id number] RESPIRATORY PANEL MOLECULARo n 12-05-2024 RP PANEL Normal [facility] Comment on above: Performed By: #### M 100.638 ####[facility] [address] [place], [place], [address] Serum globulin measurementOr dered By: Aleta Aguayo on 12-05-2024 Globulin (S) [Mass/Vol] 3.2 g/dL 2.2-4.2 [facility] Serum globulin measurement 3.2 g/dL 2.2-4.2 [facility] Serum or plasma alanine pimentel otransferase (ALT) measurementOrdered By: Aleta Aguayo on 12-05-2024 ALT [Catalytic activity/Vol] 39 U/L High <35 [facility] Serum or plasma albumin esthela urement (mass/volume)Ordered By: Aleta Aguayo on 12-05-2024 Albumin [Mass/Vol] 3.8 g/dL 3.4-4.8 [facility] Serum or plasma albumin/glob ulin mass ratioOrdered By: Aleta Aguayo on 12-05-2024 Albumin/Globulin [Mass ratio] 1.2 {ratio} 0.9-2.4 [facility] Serum or plasma alkaline jose sphatase measurementOrdered By: Aleta Aguayo on 12-05-2024 ALP [Catalytic activity/Vol] 149 U/L High 35-104 [facility] Serum phosphorus measurement Ordered By: Aleta Aguayo on 12-05-2024 Phosphorus Level 6.2 mg/dL High 2.7-4.5 [facility] Serum phosphorus measurement 6.2 mg/dL High 2.7-4.5 [facility] Total carbon dioxide measure mentOrdered By: Yrn Kahn on 12-05-2024 Blood Gas Total CO2 28 mmol/L [facility] CO2 [Moles/Vol] 28 mmol/L [facility] Total carbon dioxide measurement 28 mmol/L [facility] Total proteinOrdered By: Lilibeth Aguayo on 12-05-2024 Protein [Mass/Vol] 7.0 g/dL 5.9-8.4 [facility] Total protein 7.0 g/dL 5.9-8.4 [facility] pH (Unsp spec)Ordered By: Cherelle Kahn on 12-05-2024 Blood Gas pH 7.24 Low 7.35-7.45 [facility] Measurement, pH 7.24 Low 7.35-7.45 [facility] 12 Lead EKGon 12-04-2024 12 Lead EKG Normal [facility] Absolute neutrophil countOrd ered By: Franco Inman on 12-04-2024 Neutrophils (Bld) [#/Vol] 11.4 10*3/uL High 2.0-7.7 [facility] Anion gap in Serum or Plasma Ordered By: Franco Inman on 12-04-2024 Anion gap [Moles/Vol] 13 mmol/L 5-15 [facility] Assessment of wrist artery p atency prior to arterial punctureOrdered By: Aleta Aguayo on 12-04-2024 Sergei Test Positive Normal [facility] Comment on above: Performed By: #### L 9000.0800 ####[facility] [address] [place], [address] BUN/creatinine ratioOrdered By: Franco Inman on 12-04-2024 Urea nitrogen/Creatinine [Mass ratio] 10.4 mg/mg 07-17 [facility] Base excess Calc (BldV) [Mol es/Vol]Ordered By: Aleta Aguayo on 12-04-2024 Blood Gas Base Excess 1 mmol/L -2-2 [facility] Basic Metabolic Profile (BMP )on 12-04-2024 BUN/CRE 10.4 RATIO Normal 07-17 [facility] Comment on above: Performed By: #### L 100.0100, L500.2500 ####[facility] [address] [place], [address] Calcium [Mass/Vol] 9.2 mg/dL Normal 7.6-11.0 [facility] Comment on above: Performed By: #### L 100.0100, L500.2500 ####[facility] [address] [place], [address] Chloride [Moles/Vol] 99 mmol/L Normal 98-108 [facility] Comment on above: Performed By: #### L 100.0100, L500.2500 ####[facility] [address] [place], [address] CO2 [Moles/Vol] 24.6 mmol/L Normal 21.0-32.0 [facility] Comment on above: Performed By: #### L 100.0100, L500.2500 ####[facility] [address] [place], [address] Creatinine [Mass/Vol] 0.92 mg/dL Normal 0.70-1.20 [facility] Comment on above: Performed By: #### L 100.0100, L500.2500 ####[facility] [address] [place], [address] ECRCL 53.12 ml/min Normal 50-250 [facility] Comment on above: Performed By: #### L 100.0100, L500.2500 ####[facility] [address] [place], [address] GAP 13 Normal 5-15 [facility] Comment on above: Performed By: #### L 100.0100, L500.2500 ####[facility] [address] [place], [address] GFR/1.73 sq M.predicted among non-blacks MDRD (S/P/Bld) [Vol rate/Area] 71 mL/min/{1.73_m2} Normal >60 [facility] Comment on above: Result Comment: mL/m in/1.73m2 CKD-EPI Creatinine Equation (2020) Performed By: #### L 100.0100, L500.2500 ####[facility] [address] [place], [address] Glucose [Mass/Vol] 118 mg/dL High 70-99 [facility] Comment on above: Performed By: #### L 100.0100, L500.2500 ####[facility] [address] [place], [address] Potassium [Moles/Vol] 4.2 mmol/L Normal 3.3-5.1 [facility] Comment on above: Performed By: #### L 100.0100, L500.2500 ####[facility] [address] [place], [address] Sodium [Moles/Vol] 137 mmol/L Normal 133-145 [facility] Comment on above: Performed By: #### L 100.0100, L500.2500 ####[facility] [address] [place], [address] Urea nitrogen [Mass/Vol] 10 mg/dL Normal 4-19 [facility] Comment on above: Performed By: #### L 100.0100, L500.2500 ####[facility] [address] [place], [address] Basophil percentageOrdered B y: Franco Inman on 12-04-2024 Basophils/100 WBC (Bld) 0.9 % 0-1 [facility] Blood Gases by CPSon 025 Base excess Calc (Bld) [Moles/Vol] 1 mmol/L Normal -2 to +2 [facility] Comment on above: Performed By: #### L 9000.0800 ####[facility] [address] [place], [address] Blood Gas Type ART Normal [facility] Comment on above: Performed By: #### L 9000.0800 ####[facility] [address] [place], [address] CO2 [Moles/Vol] 30 mmol/L Normal [facility] Comment on above: Performed By: #### L 9000.0800 ####[facility] [address] [place], [address] FI02 5.0 Normal [facility] Comment on above: Performed By: #### L 9000.0800 ####[facility] [address] [place], [address] HCO3 (Bld) [Moles/Vol] 28.1 mmol/L High 22-26 [facility] Comment on above: Performed By: #### L 9000.0800 ####[facility] [address] [place], [address] Mode Not entered Normal [facility] Comment on above: Performed By: #### L 9000.0800 ####[facility] [address] [place], [address] O2 Delivery Dev Cannula Normal [facility] Comment on above: Performed By: #### L 9000.0800 ####[facility] [address] [place], [address] pCO2 65.4 mmHg High 35-45 [facility] Comment on above: Performed By: #### L 9000.0800 ####[facility] [address] [place], [address] pH (Bld) 7.24 [pH] Low 7.35-7.45 [facility] Comment on above: Performed By: #### L 9000.0800 ####[facility] [address] [place], [address] PO2 68 mmHG Low 75-100 [facility] Comment on above: Performed By: #### L 9000.0800 ####[facility] [address] [place], [address] SITE R Radial Normal [facility] Comment on above: Performed By: #### L 9000.0800 ####[facility] [address] [place], [address] SO2 89 Low 95-99 [facility] Comment on above: Performed By: #### L 9000.0800 ####[facility] [address] [place], [address] Blood bicarbonate measuremen tOrdered By: Aleta Aguayo on 12-04-2024 Blood Gas Bicarbonate Actual 28.1 mmol/L High 22-26 [facility] CBC W/Diff, Automatedon 03-0 Absolute Lymph 0.96 X10 3/uL Normal 0.83-4.51 [facility] Comment on above: Performed By: #### L 100.0100, L500.2500 ####[facility] [address] [place], [address] Absolute Neut 11.4 X10 3/uL High 2.0-7.7 [facility] Comment on above: Performed By: #### L 100.0100, L500.2500 ####[facility] [address] [place], [address] Basophils/100 WBC (Bld) 0.9 % Normal 0-1 [facility] Comment on above: Performed By: #### L 100.0100, L500.2500 ####[facility] [address] [place], [address] Eosinophils/100 WBC (Bld) 0.6 % Normal 0-5 [facility] Comment on above: Performed By: #### L 100.0100, L500.2500 ####[facility] [address] [place], [address] Erythrocyte distribution width (RBC) [Ratio] 14.7 % High 11.6-14.6 [facility] Comment on above: Performed By: #### L 100.0100, L500.2500 ####[facility] [address] [place], [address] Hematocrit (Bld) [Volume fraction] 43.7 % Normal 37-47 [facility] Comment on above: Performed By: #### L 100.0100, L500.2500 ####[facility] [address] [place], [address] Hemoglobin (Bld) [Mass/Vol] 14.1 g/dL Normal 12.0-15.0 [facility] Comment on above: Performed By: #### L 100.0100, L500.2500 ####[facility] [address] [place], [address] IG% 0.800 Normal 0.0-0.9 [facility] Comment on above: Result Comment: IG% - Immature Granulocytes (promyelocytes, myelocytes andmetamyelocytes) > 1% indicates that a LEFT SHIFT is Present. Performed By: #### L 100.0100, L500.2500 ####[facility] [address] [place], [address] Lymphocytes/100 WBC (Bld) 6.8 % Low 19-41 [facility] Comment on above: Performed By: #### L 100.0100, L500.2500 ####[facility] [address] [place], [address] MCH (RBC) [Entitic mass] 26.9 pg Low 27.0-32.0 [facility] Comment on above: Performed By: #### L 100.0100, L500.2500 ####[facility] [address] [place], [address] MCHC (RBC) [Mass/Vol] 32.3 g/dL Normal 32-36 [facility] Comment on above: Performed By: #### L 100.0100, L500.2500 ####[facility] [address] [place], [address] MCV (RBC) [Entitic vol] 83.4 fL Normal 81-99 [facility] Comment on above: Performed By: #### L 100.0100, L500.2500 ####[facility] [address] [place], [address] Monocytes/100 WBC (Bld) 10.4 % High 0-10 [facility] Comment on above: Performed By: #### L 100.0100, L500.2500 ####[facility] [address] [place], [address] Neutrophils/100 WBC (Bld) 80.5 % High 47-70 [facility] Comment on above: Performed By: #### L 100.0100, L500.2500 ####[facility] [address] [place], [address] Nucleated RBC (Bld) [#/Vol] 0 10*3/uL Normal 0-5 [facility] Comment on above: Performed By: #### L 100.0100, L500.2500 ####[facility] [address] [place], [address] Platelet mean volume (Bld) [Entitic vol] 10.2 fL Normal 6.2-12.0 [facility] Comment on above: Performed By: #### L 100.0100, L500.2500 ####[facility] [address] [place], [address] Platelets (Bld) [#/Vol] 271 10*3/uL Normal 150-450 [facility] Comment on above: Performed By: #### L 100.0100, L500.2500 ####[facility] [address] [place], [address] RBC (Bld) [#/Vol] 5.24 10*6/uL Normal 4.2-5.4 [facility] Comment on above: Performed By: #### L 100.0100, L500.2500 ####[facility] [address] [place], [address] RDW SD 44.6 fl High 35.1-43.9 [facility] Comment on above: Performed By: #### L 100.0100, L500.2500 ####[facility] [address] [place], [address] WBC (Bld) [#/Vol] 14.1 10*3/uL High 4.4-11.0 [facility] Comment on above: Performed By: #### L 100.0100, L500.2500 ####[facility] [address] [place], [address] CTA Chest W/WO Contraston CTA Chest W/WO Contrast Normal [facility] Carbon dioxide, total [Moles /volume] in Central venous bloodOrdered By: Franco Inman on 12-04-2024 CO2 [Moles/Vol] 24.6 mmol/L 21.0-32.0 [facility] Chest PA and Lateralon 12-04 Chest PA and Lateral Normal [facility] Chloride assayOrdered By: Leo Inman on 12-04-2024 Chloride [Moles/Vol] 99 mmol/L 98-108 [facility] Determination of fraction of inspired oxygenOrdered By: Aleta Aguayo on 12-04-2024 Blood Gas Oxygen Percent 5.0 [facility] Emergency Department Summary on 12-04-2024 Emergency Department Summary Normal [facility] Eosinophil percentageOrdered By: Franco Inman on 12-04-2024 Eosinophils/100 WBC (Bld) 0.6 % 0-5 [facility] Erythrocyte distribution wid th ratioOrdered By: Franco Inman on 12-04-2024 Erythrocyte distribution width (RBC) [Ratio] 14.7 % High 11.6-14.6 [facility] Erythrocyte distribution wid th standard deviationOrdered By: Franco Inman on 12-04-2024 Erythrocyte distribution width (RBC) [Entitic vol] 44.6 fL High 35.1-43.9 [facility] Estimation of creatinine binu aranceOrdered By: Franco Inman on 12-04-2024 Estimated Creatinine Clearance Calc 53.12 ml/min 50-250 [facility] GFR/1.73 sq M.predicted gregory g non-blacks MDRD (S/P/Bld) [Vol rate/Area]Ordered By: Franco Inman on 12-04-2024 Estimated GFR (MDRD) Non-Af Amer 71 >60 [facility] Comment on above: mL/min/1.73m2 CKD-EP I Creatinine Equation (2020) H AND P Exam - Hospitaliston 12-04-2024 H&P Exam - Hospitalist Normal [facility] Hematocrit Auto (Bld) [Volum e fraction]Ordered By: Franco Inman on 12-04-2024 Hematocrit (Bld) [Volume fraction] 43.7 % 37-47 [facility] Hemoglobin measurementOrdere d By: Franco Inman on 12-04-2024 Hemoglobin (Bld) [Mass/Vol] 14.1 g/dL 12.0-15.0 [facility] Immature granulocytes/100 WB C Auto (Bld)Ordered By: Franco Inman on 12-04-2024 Immature granulocytes/100 WBC (Bld) 0.800 % 0.0-0.9 [facility] Comment on above: IG% - Immature Granu locytes (promyelocytes, myelocytes and metamyelocytes) > 1% indicates that a LEFT SHIFT is Present. Influenza virus A and B and SARS-CoV-2 (COVID-19) and Respiratory syncytial virus RNAOrdered By: Franco Inman on 12-04-2024 SARS-CoV-2 (COVID-19) RNA KANDY+probe Ql (Unsp spec) [facility] Lipaseon 12-04-2024 Lipase [Catalytic activity/Vol] 25 U/L Normal - [facility] Comment on above: Result Comment: Jenny capellan note:LIPASE revised reference range effective 23.New Lipase methodology. Expected to produce lower valuesthan the previous assay method.NEW Reference Range: 13 - 75 U/L Performed By: #### L 501.2450 ####[facility] [address] [place], [address] Lipase measurementOrdered By : Franco Inman on 12-04-2024 Lipase [Catalytic activity/Vol] 25 U/L - [facility] Comment on above: Please note:LIPASE r evised reference range effective 23. New Lipase methodology. Expected to produce lower values than the previous assay method. NEW Reference Range: 13 - 75 U/L Lipase measurement 25 U/L -75 [facility] Lymphocytes Auto (Unsp spec) [#/Vol]Ordered By: Franco Inman on 12-04-2024 Lymphocytes (Bld) [#/Vol] 0.96 10*3/uL 0.83-4.51 [facility] Lymphocytes/100 WBC Auto (Un sp spec)Ordered By: Franco Inman on 12-04-2024 Lymphocytes/100 WBC (Bld) 6.8 % Low 19-41 [facility] M100.678on 12-04-2024 M100.678 Pending SARS-CoV-2 (COVID 19) Negative INFLUENZA A Negative INFLUENZA B Negative RSV PCR Negative Normal [facility] Comment on above: Performed By: #### M 100.575 ####[facility] [address] [place], [address] MCV (mean corpuscular volume ) determinationOrdered By: Franco Inman on 12-04-2024 MCV (RBC) [Entitic vol] 83.4 fL 81-99 [facility] Mean corpuscular hemoglobin (MCH) determinationOrdered By: Franco Inman on 12-04-2024 MCH (RBC) [Entitic mass] 26.9 pg Low 27.0-32.0 [facility] Mean corpuscular hemoglobin concentration (MCHC) determinationOrdered By: Franco Inman on 12-04-2024 MCHC (RBC) [Mass/Vol] 32.3 g/dL 32-36 [facility] Mean platelet volume determi nationOrdered By: Franco Inman on 12-04-2024 Platelet mean volume (Bld) [Entitic vol] 10.2 fL 6.2-12.0 [facility] Monocyte percentageOrdered B y: Franco Inman on 12-04-2024 Monocytes/100 WBC (Bld) 10.4 % High 0-10 [facility] Neutrophil percentageOrdered By: Franco Inman on 12-04-2024 Neutrophils/100 WBC (Bld) 80.5 % High 47-70 [facility] No Panel InformationOrdered By: Aleta Aguayo on 12-04-2024 Blood Gas Sample Site R Radial [facility] Blood Gas Specimen Type ART [facility] Blood Gas Vent Mode Not entered [facility] Oxygen Delivery Device Cannula [facility] Nucleated red blood cell per centageOrdered By: Franco Inman on 12-04-2024 Nucleated RBC/100 WBC (Bld) [Ratio] 0 % 0-5 [facility] Oxygen saturation measuremen tOrdered By: Aleta Aguayo on 12-04-2024 Blood Gas Oxygen Saturation 89 % Low 95-99 [facility] Partial pressure of carbon d ioxide measurementOrdered By: Aleta Aguayo on 12-04-2024 Arterial Blood Partial Pressure CO2 65.4 mmHg High 35-45 [facility] Partial pressure of oxygen m easurementOrdered By: Aleta Aguayo on 12-04-2024 Arterial Blood Partial Pressure O2 68 mmHG Low 75-100 [facility] Platelet countOrdered By: Leo Inman on 12-04-2024 Platelets (Bld) [#/Vol] 271 10*3/uL 150-450 [facility] Potassium (Unsp spec) [Mass/ Vol]Ordered By: Franco Inman on 12-04-2024 Potassium [Moles/Vol] 4.2 mmol/L 3.3-5.1 [facility] RBC Auto (Bld) [#/Vol]Ordere d By: Franco Inman on 12-04-2024 RBC (Bld) [#/Vol] 5.24 10*6/uL 4.2-5.4 [facility] Respiratory pathogens DNA an d RNA panel KANDY+probe (Resp)Ordered By: Aleta Aguayo on 12-04-2024 Respiratory Panel (PCR) [facility] Respiratory pathogens detect ion panel by molecular detection methodOrdered By: Aleta Aguayo on 12-04-2024 Respiratory pathogens DNA and RNA panel KANDY+probe (Resp) [facility] Serum creatinine measurement (mass/volume)Ordered By: Franco Inman on 12-04-2024 Creatinine [Mass/Vol] 0.92 mg/dL 0.70-1.20 [facility] Serum glucose measurement (m ass/volume)Ordered By: Franco Inman on 12-04-2024 Glucose [Mass/Vol] 118 mg/dL High 70-99 [facility] Serum or plasma calcium esthela urement (mass/volume)Ordered By: Franco Inman on 12-04-2024 Calcium [Mass/Vol] 9.2 mg/dL 7.6-11.0 [facility] Serum or plasma urea nitroge n measurement (mass/volume)Ordered By: Franco Inman on 12-04-2024 Urea nitrogen [Mass/Vol] 10 mg/dL 4-19 [facility] Sodium levelOrdered By: Franco Inman on 12-04-2024 Sodium [Moles/Vol] 137 mmol/L 133-145 [facility] Total carbon dioxide measure mentOrdered By: Aleta Aguayo on 12-04-2024 Blood Gas Total CO2 30 mmol/L [facility] White blood cell (WBC) count Ordered By: Franco Inman on 12-04-2024 WBC (Bld) [#/Vol] 14.1 10*3/uL High 4.4-11.0 [facility] pH (Unsp spec)Ordered By: Malinda Aguayo on 12-04-2024 Blood Gas pH 7.24 Low 7.35-7.45 [facility] ANES POSTPROC EVALon 025 ANES POSTPROC EVAL HNO ID: [id number] Author: EDUARD GALEANO MD Service: ? Author [...] Scheduled Providers: Jane Farrell MD; Adrian Laird APRN.DISTRIBUTION SPECIALIST; Eduard Galeano MD Responsible Provider: Eduard Galeano [...] December 01, 2024 TIME: 11:19 AM CSN: [id number] Normal [facility] ANES PRE-OPon 12-01-2024 ANES PRE-OP HNO ID: [id number] Author: EDUARD GALEANO MD Service: ? Author Type: Anesthesiologist Type: Anesthesia Preprocedure Evaluation Filed: 12/01/2024 10:04 Note Text: ANESTHESIOLOGY DAY OF SURGERY NOTE : 1965 Procedure Information Anesthesia Start Date/Time: 12/01/24 1002 Scheduled providers: Jane Farrell MD; Adrian Laird APRN.DISTRIBUTION SPECIALIST; Eduard Galeano MD Procedure: EGD - THERAPEUTIC, [...] and consent discussed: yes. Patient / Responsible [employer] agrees to proceed: yes Patient / [...] capsule by mouth at bedtime as needed. rabrky-cntdxbdj-tizvvao (CREON 24) 24,000-76,000 -120,000 unit delayed release [...] This conta (more content not included)... Normal [facility]20[facility] GRACIE BANUELOS ([id number]) 1965 F Date Time Provider Department 12/01/24 JANE FARRELL [facility] During your visit today, we recorded [...] pancreatitis (HCC) [K86.1] Order(s):ERCP [GI18] Order #: [id number] FUTURE Prescriptions as of 12/01/2024 - pantoprazole [...] by mouth at bedtime as needed. - diszls-krakhygf-jtxaltb (CREON 24) 24,000-76,000 -120,000 unit delayed release [...] stress female [N39.3] 11/24/2014 HPV test positive [[id number]] 11/24/2014 Alcohol dependence in remission (HCC) [F10.21] [...] Encounter Status:Closed by JANE FARRELL on 12/01/24 [facility] EGD Study observation Narrat iveon 12-01-2024 [facility] Radiology Study observation (narrative) Minoo back [facility] NURSING PROGon 12-01-2024 NURSING PROG HNO ID: [id number] Author: RESHMA TELLES RN Service: Nursing Author [...] Electronically Signed By: Reshma Telles RN Normal [facility] NURSING PROG HNO ID: [id number] Author: KATHIE DORANTES RN Service: ? Author [...] Kathie Dorantes RN In Department: GASTROENTEROLOGY Normal [facility] Matteo 11-25-2024 CNPN Telephone (GASTMN) GRACIE BANUELOS ([id number]) 1965 F Date Time Provider Department 11/25/24 JANE FARRELL [facility] During your visit today, we recorded [...] you do prescribe or if you won't [phone] (does not use MyChart) Juan Abbott LPN [...] by mouth at bedtime as needed. - hcswni-xylppobm-rmwbtud (CREON 24) 24,000-76,000 -120,000 unit delayed release [...] stress female [N39.3] 11/24/2014 HPV test positive [[id number]] 11/24/2014 Alcohol dependence in remission (HCC) [F10.21] 07/10/2015 11/02/2018 Pulmonary emphysema (HCC) [J43.9] 11/27/2015 Irritable bowel syndrome with both constipation*08/27/2017 Alcohol use disorder, moderate, dependence (HCC*08/27/2017 DDD (degenerative disc disease), cervical [M50.*09/03/2018 Severe protein-calorie malnutrition (HCC) [E43] 01/07/2019 12/26/2022 Chronic recurrent pancreatitis (HCC) [K86.1] 01/07/2019 Reactive depression [F32.9] 04/28/2019 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 chronic pancreatitis (HCC) [K86*07/26/2019 Mo (more content not included)... [facility] GRACIE BANUELOS ([id number]) 1965 F Date Time Provider Department 11/25/24 RAISA JIMENEZ3 During your visit today, we recorded the [...] by mouth at bedtime as needed. - szdnfp-pvuezurk-jjdsjmy (CREON 24) 24,000-76,000 -120,000 unit delayed release [...] stress female [N39.3] 11/24/2014 HPV test positive [AHS3689] 11/24/2014 Alcohol dependence in remission (HCC) [F10.21] [...] Encounter Status:Closed by RAISA JIMENEZ on 11/25/24 [facility] NURSING PROGon 11-24-2024 NURSING PROG HNO ID: [id number] Author: CARROLL LEBLANC RN Service: ? Author Type: Registered Nurse Type: Nursing Progress Note Filed: 11/24/2024 16:10 Note Text: Attempted to reach the patient at the contact number that they provided [phone] (home) . 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 they must have a responsible adult [...] Number to call with questions or concerns [phone] Number to call to cancel their procedure [phone] [facility]INTMWS[facility] GRACIE BANUELOS ([id number]) 1965 F Date Time Provider Department 11/08/24 MISBAH ELKINS INTMikeWS During your visit today, [...] So please ask her to use it. Misbah Cisneros MD, Rachel L, MA 11/09/2024 11:41 [...] by mouth at bedtime as needed. - qpprzn-pxubeyxy-cdkbekl (CREON 24) 24,000-76,000 -120,000 unit delayed release [...] stress female [N39.3] 11/24/2014 HPV test positive [[id number]] 11/24/2014 Alcohol dependence in remission (HCC) [F10.21] 07/10/2015 11/02/2018 Pulmonary emphysema (HCC) [J43.9] 11/27/2015 Irritable bowel syndrome with both constipation*08/27/2017 Alcohol use disorder, moderate, dependence (HCC*08/27/2017 DDD (degenerative disc disease), cervical [M50.*09/03/2018 Severe protein-calorie malnutrition (HCC) [E43] 01/07/2019 12/26/2022 Chronic recurrent pancreatitis (HCC) [K86.1] 01/07/2019 Reactive depression [F32.9] 04/28/2019 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 chronic pancreatitis (HCC) [K86*07/26 (more content not included)... Normal [facility] CNOVon 11-07-2024 CNOV Office Visit (INTMWS ) GRACIE BANUELOS ([id number]) 1965 F Date Time Provider Department 11/07/24 2:00 PM MISBAH ELKINS INTMRAQUEL During your visit today, we recorded the [...] anxiety and depression. She was admitted to [facility] from 01/01 to 01/04 for pneumonia and [...] as needed (more content not included)... Normal [facility] XR CHEST 2V FRONTAL/LATon XR CHEST [...] tissues: Unremarkable. IMPRESSION: No acute radiographic abnormality. Weathercaster: BABATUNDE Transcribe Date/Time: Nov 07 2024 4:49P Dictated by : EDUARDO MATTHEWS MD This examination was interpreted and the report reviewed and electronically signed by: EDUARDO MATTHEWS MD on Nov 07 2024 4:49PM EST [id number] Normal [facility] XR Chest PA and Lateralon IMPRESSION: No acute radiographic abnormality. Weathercaster: PSCB Transcribe Date/Time: Nov 07 2024 4:49P Dictated by : EDUARDO MATTHEWS MD This examination was interpreted and the report reviewed and electronically signed by: EDUARDO MATTHEWS MD on Nov 07 2024 4:49PM [facility] DIVISION OF RADIOLOGY * * *Final [...] soft tissues: Unremarkable. DIVISION OF RADIOLOGY Provider, [facility] - 11/07/2024 * * *Final Report* * [...] Unremarkable. IMPRESSION IMPRESSION: No acute radiographic abnormality. Weathercaster: PSCB Transcribe Date/Time: Nov 07 2024 4:49P Dictated by : EDUARDO MATTHEWS MD This examination was interpreted and the report reviewed and electronically signed by: EDUARDO MATTHEWS MD on Nov 07 2024 4:49PM [facility] Radiology Study observation (narrative) Minoo back [facility] XR Chest PA and LateralOrder ed By: Ccf Provider on 11-07-2024 [facility] Matteo 08-31-2024 IGORN Telephone (FAMMaritzaWS) GRACIE BANUELOS ([id number]) 1965 F Date Time Provider Department 08/31/24 [...] am reconsulting her. Thank you Soila Easton APRN.BOX TOE MAKER Allergies As of Date: 08/31/2024 Noted Allergy [...] chronic pancreatitis (HCC) [K86.0] Order(s):CONSULT TO GASTROENTEROLOGY [5828] Order #: [id number]: 1 FUTURE Prescriptions as of 02/06/2025 - [...] stress female [N39.3] 11/24/2014 HPV test positive [[id number]] 11/24/2014 Alcohol dependence in remission (HCC) [F10.21] 07/10/2015 11/02/2018 Pulmonary emphysema (HCC) [J43.9] 11/27/2015 Irritable bowel syndrome with both constipation*08/27/2017 Alcohol use di (more content not included)... Normal [facility] CT ABD/PEL W IVCONon 024 CT ABD/PEL W IVCON * * *Final Report* * * DATE OF EXAM: Aug 23 2024 9:53AM [facility] 0530 - CT ABD/PEL W IVCON [...] finding of the abdomen or pelvis seen. Weathercaster: BABATUNDE Transcribe Date/Time: Aug 25 2024 10:38P Dictated by : YIN HERNANDEZ MD This examination was interpreted and the report reviewed and electronically signed by: YIN HERNANDEZ MD on Aug 25 2024 10:47PM EST [id number] Normal [facility] Matteo 08-19-2024 ALE Telephone (INTMWS) VINGRACIE S ([id number]) 1965 F [place]* Date Time Provider Department 08/19/24 MISBAH ELKINS During your visit today, we recorded the following information about you: Maribeth Owen LPN 08/19/2024 11:37 AM Signed Pt called in to reports she is still getting the Lexapro in her packs. I called [facility] and they will pick her packs [...] 1 tablet by mouth once daily. - zimovw-ucbkankv-ccltqlp (CREON 24) 24,000-76,000 -120,000 unit delayed release [...] stress female [N39.3] 11/24/2014 HPV test positive [UBH1494] 11/24/2014 Alcohol dependence in remission (HCC) [F10.21] [...] Encounter Status:Closed by MARIBETH OWEN on 08/19/24 [facility] CNOVsandor 08-15-2024 CNOV Office Visit (INTMWS ) GRACIE BANUELOS ([id number]) 1965 Lavell Yanez* Date Time Provider Department 08/15/24 11:40 AM SOILA EASTON During your visit today, we recorded the following information about you: Pulse Respiration Blood pressure Weight 80/minute 16/minute 112/78 64.4 kg Soila Easton APRN.CNP 08/15/2024 12:40 PM Signed CC: Patient presents [...] shortness of breath all improving. Goes to [facility] with next routine exam in September. [...] Stage 3 severe COPD by GOLD classification ([facility]) 2018 Tobacco use greater than 30 years [...] Take 1 tablet by mouth once daily. qbnobg-vyjzndjh-xisxbxp (CREON 24) 24,000-76,000 -120,000 unit delayed release [...] daily. panto (more content not included)... Normal [facility] Amylase SerPl-cCncon 024 Amylase [Catalytic activity/Vol] 104 U/L Normal 30-104 [facility] Comment on above: Order Comment: Speci men Type: BLOOD SPECIMEN Ordering Facility: [facility] Address: [address] [place] [address] Performed By: #### 1 798-8, 80357-7, 3040-3 #### [facility] CLIA [id number] [address] [place] [address] [place] Comprehensive metabolic 2000 panelon 08-12-2024 Albumin [Mass/Vol] 4.4 g/dL Normal 3.9-4.9 [facility] Comment on above: Order Comment: Speci men Type: BLOOD SPECIMEN Ordering Facility: [facility] Address: [address] [place] [address] Performed By: #### 1 798-8, 29279-2, 3040-3 #### [facility] CLIA [id number] [address] [place] [address] [place] ALP [Catalytic activity/Vol] 142 U/L High 34-123 [facility] Comment on above: Order Comment: Speci men Type: BLOOD SPECIMEN Ordering Facility: [facility] Address: [address] [place] [address] Performed By: #### 1 798-8, 15743-2, 3040-3 #### [facility] CLIA [id number] [address] [place] [address] [place] ALT [Catalytic activity/Vol] 12 U/L Normal 7-38 [facility] Comment on above: Order Comment: Speci men Type: BLOOD SPECIMEN Ordering Facility: [facility] Address: [address] [place] [address] Performed By: #### 1 798-8, 40921-6, 3040-3 #### [facility] CLIA [id number] [address] [place] [address] [place] Anion gap [Moles/Vol] 12 mmol/L Normal 8-15 [facility] Comment on above: Order Comment: Speci men Type: BLOOD SPECIMEN Ordering Facility: [facility] Address: [address] [place] [address] Performed By: #### 1 798-8, 21698-5, 3040-3 #### [facility] CLIA [id number] [address] [place] [address] [place] AST [Catalytic activity/Vol] 15 U/L Normal 13-35 [facility] Comment on above: Order Comment: Speci men Type: BLOOD SPECIMEN Ordering Facility: [facility] Address: [address] [place] [address] Performed By: #### 1 798-8, 32627-7, 0-3 #### [facility] CLIA [id number] [address] [place] [address] [place] Bilirubin [Mass/Vol] 0.2 mg/dL Normal 0.2-1.3 [facility] Comment on above: Order Comment: Speci men Type: BLOOD SPECIMEN Ordering Facility: [facility] Address: [address] [place] [address] Performed By: #### 1 798-8, 82426-6, 0-3 #### [facility] CLIA [id number] [address] [place], [place] [id number] [place] Calcium [Mass/Vol] 9.6 mg/dL Normal 8.5-10.2 [facility] Comment on above: Order Comment: Speci men Type: BLOOD SPECIMEN Ordering Facility: [facility] Address: [address] [place] [address] Performed By: #### 1 798-8, 93137-7, 0-3 #### [facility] CLIA [id number] [address] [place] [address] [place] Chloride [Moles/Vol] 97 mmol/L Low 98-107 [facility] Comment on above: Order Comment: Speci men Type: BLOOD SPECIMEN Ordering Facility: [facility] Address: [address] [place] [address] Performed By: #### 1 798-8, 22304-6, 3040-3 #### [facility] CLIA [id number] [address] [place] [address] [place] CO2 [Moles/Vol] 26 mmol/L Normal 22-30 [facility] Comment on above: Order Comment: Speci men Type: BLOOD SPECIMEN Ordering Facility: [facility] Address: [address] [place] [address] Performed By: #### 1 798-8, 67962-6, 3040-3 #### [facility] CLIA [id number] [address] [place] [address] [place] Creatinine [Mass/Vol] 0.82 mg/dL Normal 0.58-0.96 [facility] Comment on above: Order Comment: Speci men Type: BLOOD SPECIMEN Ordering Facility: [facility] Address: [address] [place] [address] Performed By: #### 1 798-8, 76209-4, 3040-3 #### [facility] CLIA [id number] [address] [place] [address] [place] Creatinine and Glomerular filtration rate.predicted panel (S/P/Bld) 81 mL/min/1.73m??? Normal >=60 [facility] Comment on above: Order Comment: Speci men Type: BLOOD SPECIMEN Ordering Facility: [facility] Address: [address] [place] [address] Result Comment: Pavan mated Glomerular Filtration Rate [...] actual GFR. Performed By: #### 1 798-8, 67615-6, 0-3 #### [facility] CLIA [id number] [address] [place] [address] [place] Glucose [Mass/Vol] 101 mg/dL High 74-99 [facility] Comment on above: Order Comment: Reggie fajardo Type: BLOOD SPECIMEN Ordering Facility: [facility] Address: [address] [place] [address] Result Comment: The [place] Diabetes Association (ADA) provides guidance for cutoff [...] Standards of Medical Care in Diabetes 2016, [place] [employer] Association. Diabetes Care. 2016.39(Suppl 1). Performed By: #### 1 798-8, 23988-0, 0-3 #### [facility] CLIA [id number] [address] [place] [address] [place] Potassium [Moles/Vol] 4.6 mmol/L Normal 3.7-5.1 [facility] Comment on above: Order Comment: Reggie fajardo Type: BLOOD SPECIMEN Ordering Facility: [facility] Address: [address] [place] [address] Performed By: #### 1 798-8, 17223-9, 0-3 #### [facility] CLIA [id number] [address] [place] [address] [place] Protein [Mass/Vol] 7.7 g/dL Normal 6.3-8.0 [facility] Comment on above: Order Comment: Speci men Type: BLOOD SPECIMEN Ordering Facility: [facility] Address: [address] [place] [address] Performed By: #### 1 798-8, 24257-9, 3040-3 #### [facility] CLIA [id number] [address] [place] [address] [place] Sodium [Moles/Vol] 135 mmol/L Low 136-144 [facility] Comment on above: Order Comment: Speci men Type: BLOOD SPECIMEN Ordering Facility: [facility] Address: [address] [place] [address] Performed By: #### 1 798-8, 32058-2, 3040-3 #### [facility] CLIA [id number] [address] [place] [address] [place] Urea nitrogen [Mass/Vol] 15 mg/dL Normal 7-21 [facility] Comment on above: Order Comment: Speci men Type: BLOOD SPECIMEN Ordering Facility: [facility] Address: [address] [place] [address] Performed By: #### 1 798-8, 69868-5, 3040-3 #### [facility] CLIA [id number] [address] [place] [address] [place] HbA1c (Bld)on 08-12-2024 Average glucose Estimated from glycated hemoglobin (Bld) [Mass/Vol] 131 mg/dL Normal [facility] Comment on above: Order Comment: Speci men Type: BLOOD SPECIMENOrdering Facility: [facility] Address: [address] [place] [address] Result Comment: eAG: (Estimated average glucose) is a calculated value from HgbA1c and is branch sales and service representative of the average blood glucose level in the last 2-3 month period. Performed By: #### 5 5454-3 ####[facility] [id number] [place] [address] [place] HbA1c (Bld) [Mass fraction] 6.2 % High 4.3-5.6 [facility] Comment on above: Order Comment: Reggie fajardo Type: BLOOD SPECIMENOrdering Facility: [facility] Address: [address] [place] [address] Result Comment: [place] Diabetes Association guidelines indicate that patients with HgbA1c in the range 5.7-6.4% are at increased risk for development of diabetes, and intervention by lifestyle modification may be beneficial. HgbA1c greater or equal to 6.5% is considered diagnostic of diabetes. Performed By: #### 5 5454-3 ####[facility] [id number] [place] [address] [place] Lipase SerPl-[facility] 08-12-20 24 Lipase [Catalytic activity/Vol] 87 U/L High 16-61 [facility] Comment on above: Order Comment: Reggie fajardo Type: BLOOD SPECIMEN Ordering Facility: [facility] Address: [address] [place] [address] Performed By: #### 1 798-8, 05690-5, 3040-3 #### [facility] CLIA [id number] [address] [place], [place] [address] [address] [place] Matteo 08-11-2024 CNPN Telephone (INTMWS) GRACIE BANUELOS ([id number]) 1965 Lav[place] Yanez* Date Time Provider Department 08/11/24 MISBAH ELKINS INTWS During your visit today, we recorded the following information about you: Maribeth Owen LPN 08/11/2024 3:21 PM Signed ----- Message from Soila Easton APRN.BOX TOE MAKER sent at 08/11/2024 3:16 PM EST ----- [...] 1 tablet by mouth once daily. - dbbokq-quniocmt-eawhulp (CREON 24) 24,000-76,000 -120,000 unit delayed release [...] stress female [N39.3] 11/24/2014 HPV test positive [[id number]] 11/24/2014 Alcohol dependence in remission (HCC) [F10.21] [...] colonic polyps (more content not included)... Normal [facility] CNOVon 08-10-2024 CNOV Office Visit (INTMWS ) GRACIE BANUELOS ([id number]) 1965 F [place]* Date Time Provider Department 08/10/24 5:00 PM SOILA EASTON INTMWS During your visit today, we recorded the following information about you: Pulse Respiration Blood pressure Weight 96/minute 16/minute 118/80 64.4 kg Soila Easton APRN.CNP 08/10/2024 6:11 PM Signed CC: Patient presents with: Urge Urinary Incontinence: Urinary concerns HPI Gracie Chase Vin is a 59 [...] airways disease (HCC) Alcohol dependence in remission ([facility]) 07/10/2015 Alcohol use disorder 08/27/2017 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 pancreatitis [...] Stage 3 severe COPD by GOLD classification ([facility]) 2018 Tobacco use greater than 30 years [...] Take 1 tablet by mouth once daily. pnefqj-ygzicbvi-ibavynp (CREON 24) 24,000-76,000 -120,000 unit delayed release [...] by m (more content not included)... Normal [facility] Matteo 08-10-2024 [facility] Telephone (INTMWS) GRACIE BANUELOS ([id number]) 1965 [place]* Date Time Provider [...] Pt booked for an appt with Soila Rustam today at 5 pm. Explained that she [...] 1 tablet by mouth once daily. - ottjtd-lnvjtqwc-nzkypys (CREON 24) 24,000-76,000 -120,000 unit delayed release [...] stress female [N39.3] 11/24/2014 HPV test positive [[id number]] 11/24/2014 Alcohol dependence in remission (HCC) [F10.21] 07/10/2015 11/02/2018 Pulmonary emphysema (HCC) [J43.9] 11/27/2015 Irritable bowel syndrome with both constipation*08/27/2017 Alcohol use disorder, moderate, dependence (HCC*08/27/2017 DDD (de (more content not included)... Normal [facility] UA DIP, URINE (POC)on 2023 BILIRUBIN UA (POCT) Negative Negative [facility] CLARITY [facility] (POCT[facility]OR [facility]A (PO[facility]) Yellow [facility] GLUCOSE UA (POCT) Negative Negative mg/dL [facility] Hemoglobin Ql (U) Negative Negative [facility] KETONE UA (POCT) Negative Negative mg/dL [facility] LEUKOCYTES UA (POCT) Negative Negative [facility] NITRITE UA (POCT) Negative Negative [facility] PH UA (POCT) 6.0 4.5 - 8.0 [facility] Protein Ql (U) Negative Negative mg/dL [facility] SPECIFIC GRAVITY UA (POCT) 1.010 1.005 - 1.030 [facility] UROBILINOGEN UA (POCT) 0.2 Regina l E.U./dL [facility] Location:[address], [place], [place], [id number] [place] [address] POINT OF CARE [facility] XR CHEST 2V FRONTAL/LATon XR CHEST 2V [...] tissues: Unremarkable. IMPRESSION: No acute radiographic abnormality. Weathercaster: PSCB Transcribe Date/Time: Aug 11 2024 2:55P Dictated by : JEAN-CLAUDE MANRIQUEZ MD This examination was interpreted and the report reviewed and electronically signed by: JEAN-CLAUDE MANRIQUEZ MD on Aug 11 2024 2:56PM EST [id number] Normal [facility] CBC W Auto Differential pane l (Bld)on 08-05-2024 Basophils (Bld) [#/Vol] 0.16 10*3/uL High <0.11 [facility] Comment on above: Order Comment: Speci men Type: BLOOD SPECIMENOrdering Facility: [facility] Address: [address] [place] [address] Performed By: #### 5 7021-8 ####[facility] LABCLIA [id number] [facility] [id number] [address] [place] Basophils/100 WBC (Bld) 1.1 % Normal C [facility] Comment on above: Order Comment: Speci men Type: BLOOD SPECIMENOrdering Facility: [facility] Address: [address] [place] [address] Performed By: #### 5 7021-8 ####[facility] LABCLIA [id number] [place] [address] [place] Differential cell count method Nom (Bld) Auto Normal [facility] Comment on above: Order Comment: Speci men Type: BLOOD SPECIMENOrdering Facility: [facility] Address: [address] [place] [address] Performed By: #### 5 7021-8 ####[facility] LABCLIA [id number] [place] [address] [place] Eosinophils (Bld) [#/Vol] 0.39 10*3/uL Normal <0.46 [facility] Comment on above: Order Comment: Speci men Type: BLOOD SPECIMENOrdering Facility: [facility] Address: [address] [place] [address] Performed By: #### 5 7021-8 ####[facility] LABCLIA [id number] [place] [address] [place] Eosinophils/100 WBC (Bld) 2.7 % Normal [facility] Comment on above: Order Comment: Speci men Type: BLOOD SPECIMENOrdering Facility: [facility] Address: [address] [place] [address] Performed By: #### 5 7021-8 ####[facility] LABCLIA [id number] [place] [address] [place] Erythrocyte distribution width (RBC) [Ratio] 15.7 % High 11.5-15.0 [facility] Comment on above: Order Comment: Speci men Type: BLOOD SPECIMENOrdering Facility: [facility] Address: [address] [place] [address] Performed By: #### 5 7021-8 ####[facility] LABCLIA [id number] [place] [address] [place] Hematocrit (Bld) [Volume fraction] 42.5 % Normal 36.0-46.0 [facility] Comment on above: Order Comment: Speci men Type: BLOOD SPECIMENOrdering Facility: [facility] Address: [address] [place] [address] Performed By: #### 5 7021-8 ####[facility] LABCLIA [id number] [place] [address] [place] Hemoglobin (Bld) [Mass/Vol] 13.6 g/dL Normal 11.5-15.5 [facility] Comment on above: Order Comment: Speci men Type: BLOOD SPECIMENOrdering Facility: [facility] Address: [address] [place] [address] Performed By: #### 5 7021-8 ####[facility] LABCLIA [id number] [place] [address] [place] Immature granulocytes (Bld) [#/Vol] 0.12 10*3/uL High <0.10 [facility] Comment on above: Order Comment: Speci men Type: BLOOD SPECIMENOrdering Facility: [facility] Address: [address] [place] [address] Performed By: #### 5 7021-8 ####[facility] LABCLIA [id number] [place] [address] [place] Immature granulocytes/100 WBC (Bld) 0.8 % Normal [facility] Comment on above: Order Comment: Speci men Type: BLOOD SPECIMENOrdering Facility: [facility] Address: [address] [place] [address] Performed By: #### 5 7021-8 ####[facility] LABCLIA [id number] [place] [address] [place] Lymphocytes (Bld) [#/Vol] 3.77 10*3/uL Normal 1.00-4.00 [facility] Comment on above: Order Comment: Speci men Type: BLOOD SPECIMENOrdering Facility: [facility] Address: [address] [place] [address] Performed By: #### 5 7021-8 ####[facility] LABIA [id number] [place] [address] [place] Lymphocytes/100 WBC (Bld) 26.5 % Normal [facility] Comment on above: Order Comment: Speci men Type: BLOOD SPECIMENOrdering Facility: [facility] Address: [address] [place] [address] Performed By: #### 5 7021-8 ####[facility] LABIA [id number] [place] [address] [place] MCH (RBC) [Entitic mass] 26.8 pg Normal 26.0-34.0 [facility] Comment on above: Order Comment: Speci men Type: BLOOD SPECIMENOrdering Facility: [facility] Address: [address] [place] [address] Performed By: #### 5 7021-8 ####[facility] LABIA [id number] [place] [address] [place] MCHC (RBC) [Mass/Vol] 32.0 g/dL Normal 30.5-36.0 [facility] Comment on above: Order Comment: Speci men Type: BLOOD SPECIMENOrdering Facility: [facility] Address: [address] [place] [address] Performed By: #### 5 7021-8 ####[facility] LABIA [id number] [place] [address] [place] MCV (RBC) [Entitic vol] 83.8 fL Normal 80.0-100.0 [facility] Comment on above: Order Comment: Speci men Type: BLOOD SPECIMENOrdering Facility: [facility] Address: [address] [place] [address] Performed By: #### 5 7021-8 ####[facility] LABCLIA [id number] [place] [address] [place] Monocytes (Bld) [#/Vol] 1.27 10*3/uL High <0.87 [facility] Comment on above: Order Comment: Speci men Type: BLOOD SPECIMENOrdering Facility: [facility] Address: [address] [place] [address] Performed By: #### 5 7021-8 ####[facility] LABCLIA [id number] [place] [address] [place] Monocytes/100 WBC (Bld) 8.9 % Normal [facility] Comment on above: Order Comment: Speci men Type: BLOOD SPECIMENOrdering Facility: [facility] Address: [address] [place] [address] Performed By: #### 5 7021-8 ####[facility] LABCLIA [id number] [place] [address] [place] Neutrophils (Bld) [#/Vol] 8.50 10*3/uL High 1.45-7.50 [facility] Comment on above: Order Comment: Speci men Type: BLOOD SPECIMENOrdering Facility: [facility] Address: [address] [place] [address] Performed By: #### 5 7021-8 ####[facility] LABCLIA [id number] [place] [address] [place] Neutrophils/100 WBC (Bld) 60.0 % Normal [facility] Comment on above: Order Comment: Speci men Type: BLOOD SPECIMENOrdering Facility: [facility] Address: [address] [place] [address] Performed By: #### 5 7021-8 ####[facility] LABCLIA [id number] [place] [address] [place] Nucleated RBC (Bld) [#/Vol] 10*3/uL Normal <0.01 [facility] Comment on above: Order Comment: Speci men Type: BLOOD SPECIMENOrdering Facility: [facility] Address: [address] [place] [address] Performed By: #### 5 7021-8 ####[facility] LABIA [id number] [place] [address] [place] Nucleated RBC/100 WBC (Bld) [Ratio] 0.0 /100 WBC Normal [facility] Comment on above: Order Comment: Speci men Type: BLOOD SPECIMENOrdering Facility: [facility] Address: [address] [place] [address] Performed By: #### 5 7021-8 ####[facility] LABIA [id number] [place] [address] [place] Platelet mean volume (Bld) [Entitic vol] 10.5 fL Normal 9.0-12.7 [facility] Comment on above: Order Comment: Speci men Type: BLOOD SPECIMENOrdering Facility: [facility] Address: [address] [place] [address] Performed By: #### 5 7021-8 ####[facility] LABIA [id number] [place] [address] [place] Platelets (Bld) [#/Vol] 340 10*3/uL Normal 150-400 [facility] Comment on above: Order Comment: Speci men Type: BLOOD SPECIMENOrdering Facility: [facility] Address: [address] [place] [address] Performed By: #### 5 7021-8 ####[facility] LABIA [id number] [place] [address] [place] RBC (Bld) [#/Vol] 5.07 10*6/uL Normal 3.90-5.20 [facility] Comment on above: Order Comment: Speci men Type: BLOOD SPECIMENOrdering Facility: [facility] Address: [address] [place] [address] Performed By: #### 5 7021-8 ####[facility] LABCLIA [id number] [place] [address] [place] WBC (Bld) [#/Vol] 14.21 10*3/uL High 3.70-11.00 [facility] Comment on above: Order Comment: Speci men Type: BLOOD SPECIMENOrdering Facility: [facility] Address: [address] [id number] Performed By: #### 5 7021-8 ####[facility] LABCLIA [id number] [place] [address] [place] CNOVon 08-05-2024 CNOV Office Visit (INTMWS ) GRACIE BANUELOS ([id number]) 1965 F [place]* Date Time Provider [...] anxiety and depression. She was admitted to [facility] from 01/01 to 01/04 for pneumonia and [...] airways disease (HCC) Alcohol dependence in remission ([facility]) 07/10/2015 Alcohol use disorder 08/27/2017 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 pancreatitis Alcoholic hepatitis 05/18/2012 Alcoholic liver disease (HCC) 11/16/2013 Anemia Anxiety with depression Asthma Chronic hypoxemic respiratory failure (HCC) COPD (chronic obstructive pulmonary disease) ([facility]) 05/25/2012 DDD (degenerative disc disease), cervical 09/03/2018 [...] to infectious organism 2017 Severe protein-calorie malnutrition ([facility]) 01/07/2019 Stage 3 severe COPD by GOLD classification ([facility]) 2018 Tobacco use greater than 30 years Unspecified hemorrhoids without mention of complication Urine, incontinence, stress female 11/24/2014 PAST SURGICAL HISTORY Procedure Laterality Date APPENDECTOMY at age 14 COLONOSCOPY 04/15/[address], [address] Paul Perez. COLONOSCOPY 01/23/2015 2-Tubular adenomas. D (more content not included)... Normal [facility] CNCOon 07-13-2024 CNCO Letter Text Normal [facility] CNPNon 06-21-2024 CNPN Telephone (INTMWS) GRACIE BANUELOS ([id number]) 1965 [place]* Date Time Provider Department 06/21/24 MISBAH ELKINS INTMWS During your visit today, [...] 1 tablet by mouth once daily. - fjajhd-wzlnplqy-owtknjf (CREON 24) 24,000-76,000 -120,000 unit delayed release [...] stress female [N39.3] 11/24/2014 HPV test positive [[id number]] 11/24/2014 Alcohol dependence in remission (HCC) [F10.21] [...] Status:Closed by LARRY HASTINGS on 06/21/24 Normal [facility] Emergency Department Summary on 06-02-2024 Emergency Department Summary Normal [facility] Venous Duplex US, Unilateral on 06-02-2024 Venous Duplex US, Unilateral Normal [facility] CNOVon 05-18-2024 CNOV Office Visit (INTMWS ) GRACIE BANUELOS ([id number]) 1965 F [facility]* Date Time Provider Department 05/18/24 4:00 [...] anxiety and depression. She was admitted to [facility] from 01/01 to 01/04 for pneumonia and [...] disease (HCC) 07/10/2015: Alcohol dependence in remission ([facility]) 08/27/2017: Alcohol use disorder No date: 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 pancreatitis 05/18/2012: Alcoholic hepatitis 11/16/2013: Alcoholic liver disease (HCC) No date: Anemia No date: Anxiety with depression No date: Asthma No date: Chronic hypoxemic respiratory failure ([facility]) 05/25/2012: COPD (chronic obstructive pulmonary disease) ([facility]) 09/03/2018: DDD (degenerative disc disease), cervical No [...] to infectious organism 01/07/2019: Severe protein-calorie malnutrition ([facility]) 2018: Stage 3 severe COPD by GOLD classification ([facility]) No date: Tobacco use Comment: greater than [...] Valium [Di (more content not included)... Normal [facility] Pulmonary Visit Reporton Pulmonary Visit Report Normal [facility] XR Chest PA and Lateralon IMPRESSION: Bibasilar pulmonary infiltrates versus atelectasis. Weathercaster: BABATUNDE Transcribe Date/Time: Jan 27 2024 4:18P Dictated by : CHELA GAMING MD This examination was interpreted and the report reviewed and electronically signed by: CHELA GAMING MD on Jan 27 2024 4:20PM [facility] DIVISION OF RADIOLOGY * * *Final [...] shows degenerative changes. DIVISION OF RADIOLOGY Provider, [facility] - 01/27/2024 * * *Final Report* * [...] IMPRESSION IMPRESSION: Bibasilar pulmonary infiltrates versus atelectasis. Weathercaster: PSCB Transcribe Date/Time: Jan 27 2024 4:18P Dictated by : CHELA GAMING MD This examination was interpreted and the report reviewed and electronically signed by: CHELA GAMING MD on Jan 27 2024 4:20PM EST [facility] XR Chest PA and LateralOrder ed By: Ccf Provider on 01-27-2024 [facility] XR Chest PA and Lateralon Radiology Study observation (narrative) [facility] Absolute lymphocyte countOrd ered By: Bert Greenwood on 01-05-2024 Lymphocytes Auto (Unsp spec) [#/Vol] 3.82 10*3/uL 0.83-4.51 [facility] Basophil percentageOrdered B y: Bert Greenwood on 01-05-2024 Basophil percentage Not Reportable [facility] Chloride [Moles/Vol] 99 mmol/L 98-107 [facility] Glucose [Mass/Vol] 122 mg/dL 74-106 [facility] Comment on above: Fasting Glucose resu lt from 100 to 125 mg/dL suggests IMPAIRED HOMEOSTASIS per A.D.A. criteria. Hemoglobin (Bld) [Mass/Vol] 13.1 g/dL 12.0-15.0 [facility] Neutrophils (Bld) [#/Vol] 24.7 10*3/uL 2.0-7.7 [facility] Potassium [Moles/Vol] 5.0 mmol/L 3.5-5.1 [facility] Sodium [Moles/Vol] 132 mmol/L 136-145 [facility] WBC (Bld) [#/Vol] 29.4 10*3/uL 4.4-11.0 [facility] Blood band neutrophil count as percentage of total leukocytesOrdered By: Bert Greenwood on 01-05-2024 Band form neutrophils/100 WBC (Bld) 3 % 0-5 [facility] Blood lymphocytes/100 leukoc ytesOrdered By: Bert Greenwood on 01-05-2024 Lymphocytes/100 WBC (Bld) 13 % 19-41 [facility] Blood monocytes/100 leukocyt esOrdered By: Bert Greenwood on 01-05-2024 Monocytes/100 WBC (Bld) 2 % 0-10 [facility] Blood platelet adequacy dete ction by light microscopyOrdered By: Bert Greenwood on 01-05-2024 Platelets LM Ql (Bld) MOD INC ADEQ [facility] Blood segmented neutrophils/ 100 leukocytesOrdered By: Bert Greenwood on 01-05-2024 Segmented neutrophils/100 WBC (Bld) 81 % 47-70 [facility] Determination of erythrocyte mean corpuscular volume (MCV)Ordered By: Bert Greenwood on 01-05-2024 MCV (RBC) [Entitic vol] 83.2 fL 81-99 [facility] Erythrocyte distribution wid th ratioOrdered By: Bert Greenwood on 01-05-2024 Erythrocyte distribution width (RBC) [Ratio] 16.0 % 11.6-14.6 [facility] Erythrocyte distribution wid th standard deviationOrdered By: Bert Greenwood on 01-05-2024 Erythrocyte distribution width (RBC) [Entitic vol] 48.2 fL 35.1-43.9 [facility] Hematocrit Auto (Bld) [Volum e fraction]Ordered By: Bert Greenwood on 01-05-2024 Hematocrit (Bld) [Volume fraction] 42.2 % 37-47 [facility] Laboratory - Chemistry and C hemistry - challengeOrdered By: Bert Greenwood on 01-05-2024 CO2 [Moles/Vol] 26.0 mmol/L 21.0-32.0 [facility] Urea nitrogen/Creatinine [Mass ratio] 28.0 mg/mg 10-20 [facility] Laboratory - Hematology and Cell countsOrdered By: Bert Greenwood on 01-05-2024 MCH (RBC) [Entitic mass] 25.8 pg 27.0-32.0 [facility] MCHC (RBC) [Mass/Vol] 31.0 g/dL 32-36 [facility] Myelocytes/100 WBC (Bld) 1 % 0-0 [facility] Platelet mean volume (Bld) [Entitic vol] 10.1 fL 6.2-12.0 [facility] Platelets (Bld) [#/Vol] 498 10*3/uL 150-450 [facility] No Panel InformationOrdered By: Bert Greenwood on 01-05-2024 Estimated Creatinine Clearance Calc 60.35 ml/min [facility] Estimated GFR (MDRD) Amer 91 mL/min >60 [facility] Comment on above: GFR Calc Estimated GFR (MDRD) Non-Af Amer 75 mL/min >60 [facility] Comment on above: Non- GFR Calc RBC Auto (Bld) [#/Vol]Ordere d By: Bert Greenwood on 01-05-2024 RBC (Bld) [#/Vol] 5.07 10*6/uL 4.2-5.4 [facility] RBC morphologyOrdered By: Dorian Greenwood on 01-05-2024 RBC morphology finding Nom (Bld) NORM C+C NORMAL NORM C&C [facility] Review by pathologistOrdered By: Bert Greenwood on 01-05-2024 Pathologist review Geovany (Unsp spec) [Interp] Tiesha gotti [facility] Pathologist review Geovany (Unsp spec) [Interp] Reviewed [facility] Comment on above: Previous reported re sult: Tiesha gotti Edited by: DESHAWN on 01/06/24:1540Neutrophilic leukocytosis with left shift.Thrombocytosis.Clinical correlation necessary.Javier Best M.D. 01/06/24 AMENDED REPORT 01/06/24 1540 PATH REV previously reported as: Tiesha gotti Serum or plasma calcium esthela urement (mass/volume)Ordered By: Bert Greenwood on 01-05-2024 Calcium [Mass/Vol] 10.5 mg/dL 8.5-10.1 [facility] Serum or plasma creatinine m easurement (mass/volume)Ordered By: Bert Greenwood on 01-05-2024 Creatinine [Mass/Vol] 0.82 mg/dL 0.55-1.02 [facility] Comment on above: The validity of the calculated GFR & GFRAA in patients over 70 years has not been determined. Clinical correlation is essential. Serum or plasma urea nitroge n measurement (mass/volume)Ordered By: Bert Greenwood on 01-05-2024 Urea nitrogen [Mass/Vol] 23 mg/dL 7-18 [facility] Thin prep Papanicolaou smear with manual screeningOrdered By: Bert Greenwood on 01-05-2024 Thin prep Papanicolaou smear with manual screening 7 5-15 [facility] Total cell countOrdered By: Bert Greenwood on 04-09-2024 Cells counted Molgen (Bld/Tiss) [#] 100 MANUAL DIFF [facility] Bacteria identified Respirat ory culture Nom (Unsp spec)Ordered By: Carin Kt on 01-04-2024 Respiratory Culture Presumptive C albicans [facility] Gram stain for investigation of transfusion reactionOrdered By: Kt on 01-04-2024 Microscopic observation Gram stain Nom (Unsp spec) [facility] Automated lymphocyte count a s percentage of total leukocytesOrdered By: Kt on 01-03-2024 Lymphocytes/100 WBC Auto (Unsp spec) 4.0 % 19-41 [facility] Basophil percentageOrdered B y: Kt on 01-03-2024 Basophils/100 WBC (Bld) 0.3 % 0-1 [facility] Bilirubin [Mass/Vol] 0.20 mg/dL 0.20-1.00 [facility] Comment on above: For patients on eltr ombopag therapy, use of Dimension [place] TBIL is not recommended. Chloride [Moles/Vol] 105 mmol/L 98-107 [facility] Eosinophils/100 WBC (Bld) 0.2 % 0-5 [facility] Glucose [Mass/Vol] 227 mg/dL 74-106 [facility] Comment on above: Glucose result great er than or equal to 200 mg/dLsuggests DIABETES MELLITUS per A.D.A. criteria. Monocytes/100 WBC (Bld) 2.5 % 0-10 [facility] Potassium [Moles/Vol] 4.3 mmol/L 3.5-5.1 [facility] Protein [Mass/Vol] 7.9 g/dL 6.4-8.2 [facility] Sodium [Moles/Vol] 135 mmol/L 136-145 [facility] Immature granulocytes/100 WB C Auto (Bld)Ordered By: Carin Meraz on 01-03-2024 Immature granulocytes/100 WBC (Bld) 1.700 % 0.0-0.9 [facility] Comment on above: IG% - Immature Granu locytes (promyelocytes, myelocytes and metamyelocytes) > 1% indicates that a LEFT SHIFT is Present. Laboratory - Chemistry and C hemistry - challengeOrdered By: Carin Meraz on 01-03-2024 Albumin/Globulin [Mass ratio] 0.6 {ratio} 0.9-2.4 [facility] ALP [Catalytic activity/Vol] 129 U/L 45-117 [facility] ALT [Catalytic activity/Vol] 12 U/L 13-56 [facility] CO2 [Moles/Vol] 23.0 mmol/L 21.0-32.0 [facility] Globulin (S) [Mass/Vol] 5.0 g/dL 2.2-4.2 [facility] Urea nitrogen/Creatinine [Mass ratio] 14.3 mg/mg 10-20 [facility] Laboratory - Hematology and Cell countsOrdered By: Carin Meraz on 01-03-2024 Nucleated RBC/100 WBC (Bld) [Ratio] 0 % 0-5 [facility] No Panel InformationOrdered By: Carin Meraz on 01-03-2024 Estimated Creatinine Clearance Calc 50.50 ml/min [facility] Estimated GFR (MDRD) Amer 74 mL/min >60 [facility] Comment on above: GFR Calc Estimated GFR (MDRD) Non-Af Amer 61 mL/min >60 [facility] Comment on above: Non- GFR Calc Serum or plasma calcium esthela urement (mass/volume)Ordered By: Carin Meraz on 01-03-2024 Calcium [Mass/Vol] 8.9 mg/dL 8.5-10.1 [facility] Serum or plasma creatinine m easurement (mass/volume)Ordered By: Carin Meraz on 01-03-2024 Creatinine [Mass/Vol] 0.98 mg/dL 0.55-1.02 [facility] Comment on above: The validity of the calculated GFR & GFRAA in patients over 70 years has not been determined. Clinical correlation is essential. Serum or plasma urea nitroge n measurement (mass/volume)Ordered By: Carin Meraz on 01-03-2024 Urea nitrogen [Mass/Vol] 14 mg/dL 7-18 [facility] Thin prep Papanicolaou smear with manual screeningOrdered By: Carin Meraz on 01-03-2024 Thin prep Papanicolaou smear with manual screening 2.9 g/dL 3.2-5.0 [facility] Thin prep Papanicolaou smear with manual screening 12 U/L 15-37 [facility] Thin prep Papanicolaou smear with manual screening 7 5-15 [facility] Absolute lymphocyte countOrd ered By: Víctor Huerta on 01-02-2024 Lymphocytes Auto (Unsp spec) [#/Vol] 2.46 10*3/uL 0.83-4.51 [facility] Activated partial thrombopla stin time (aPTT) in platelet poor plasma by coagulation aOrdered By: Víctor Huerta on 01-02-2024 aPTT Coag (PPP) [Time] 32.2 s 24.1-36.2 [facility] Assessment of wrist artery p atency prior to arterial punctureOrdered By: Víctor Huerta on 01-02-2024 Arterial patency Wrist artery --pre arterial puncture Positive [facility] Automated lymphocyte count a s percentage of total leukocytesOrdered By: Víctor Huerta on 01-02-2024 Lymphocytes/100 WBC Auto (Unsp spec) 9.6 % 19-41 [facility] Base excessOrdered By: Brandon Huerta on 01-02-2024 Base excess Calc (BldV) [Moles/Vol] -4 mmol/L -2-2 [facility] Basophil percentageOrdered B y: Víctor Huerta on 01-02-2024 Lactate [Moles/Vol] 1.2 mmol/L 0.4-2.0 [facility] [facility] Basophil percentage 22 mmol/L [facility] Basophils/100 WBC (Bld) 92 % 95-99 [facility] Bilirubin [Mass/Vol] 0.30 mg/dL 0.20-1.00 [facility] Comment on above: For patients on eltr ombopag therapy, use of Dimension [place] TBIL is not recommended. Protein [Mass/Vol] 8.3 g/dL 6.4-8.2 [facility] Basophils/100 WBC (Bld) 0.4 % 0-1 [facility] Chloride [Moles/Vol] 101 mmol/L 98-107 [facility] Eosinophils/100 WBC (Bld) 0.6 % 0-5 [facility] Glucose [Mass/Vol] 126 mg/dL 74-106 [facility] Comment on above: Fasting Glucose resu lt greater than or equal to 126 mg/dL suggests DIABETES MELLITUS per A.D.A. criteria. Hemoglobin (Bld) [Mass/Vol] 12.9 g/dL 12.0-15.0 [facility] Monocytes/100 WBC (Bld) 6.9 % 0-10 [facility] Neutrophils (Bld) [#/Vol] 21.0 10*3/uL 2.0-7.7 [facility] Neutrophils/100 WBC (Bld) 81.7 % 47-70 [facility] Potassium [Moles/Vol] 3.9 mmol/L 3.5-5.1 [facility] Sodium [Moles/Vol] 133 mmol/L 136-145 [facility] WBC (Bld) [#/Vol] 25.7 10*3/uL 4.4-11.[address] [facility] er [facility] Blood manual differential co mment interpretation (narrative result)Ordered By: Víctor Huerta on 01-02-2024 Manual differential comment Geovany (Bld) [Interp] SCANNED [facility] Determination of erythrocyte mean corpuscular volume (MCV)Ordered By: Víctor Huerta on 01-02-2024 MCV (RBC) [Entitic vol] 83.2 fL 81-99 [facility] Direct bilirubinOrdered By: Víctor Huerta on 01-02-2024 Bilirubin.direct [Mass/Vol] 0.13 mg/dL 0.00-0.30 [facility] Erythrocyte distribution wid th ratioOrdered By: Víctor Huerta on 01-02-2024 Erythrocyte distribution width (RBC) [Ratio] 15.6 % 11.6-14.6 [facility] Erythrocyte distribution wid th standard deviationOrdered By: Víctor Huerta on 01-02-2024 Erythrocyte distribution width (RBC) [Entitic vol] 47.1 fL 35.1-43.9 [facility] Hematocrit Auto (Bld) [Volum e fraction]Ordered By: Víctor Huerta on 01-02-2024 Hematocrit (Bld) [Volume fraction] 41.5 % 37-47 [facility] Immature granulocytes/100 WB C Auto (Bld)Ordered By: Víctor Huerta on 01-02-2024 Immature granulocytes/100 WBC (Bld) 0.800 % 0.0-0.9 [facility] Comment on above: IG% - Immature Granu locytes (promyelocytes, myelocytes and metamyelocytes) > 1% indicates that a LEFT SHIFT is Present. Laboratory - Chemistry and C hemistry - challengeOrdered By: Víctor Huerta on 01-02-2024 ALP [Catalytic activity/Vol] 148 U/L 45-117 [facility] ALT [Catalytic activity/Vol] 13 U/L 13-56 [facility] Globulin (S) [Mass/Vol] 5.1 g/dL 2.2-4.2 [facility] Natriuretic peptide B (Bld) [Mass/Vol] 75.1 pg/mL 0-100 [facility] CO2 [Moles/Vol] 25.0 mmol/L 21.0-32.0 [facility] Urea nitrogen/Creatinine [Mass ratio] 14.7 mg/mg 10-20 [facility] Laboratory - CoagulationOrde red By: Víctor Huerta on 01-02-2024 INR Coag (Bld) [Relative time] 1.1 {INR} [facility] PT Coag (PPP) [Time] 14.5 s 11.7-14.9 [facility] Laboratory - Hematology and Cell countsOrdered By: Víctor Huerta on 01-02-2024 MCH (RBC) [Entitic mass] 25.9 pg 27.0-32.0 [facility] MCHC (RBC) [Mass/Vol] 31.1 g/dL 32-36 [facility] Nucleated RBC/100 WBC (Bld) [Ratio] 0 % 0-5 [facility] Platelet mean volume (Bld) [Entitic vol] 9.8 fL 6.2-12.0 [facility] Platelets (Bld) [#/Vol] 311 10*3/uL 150-450 [facility] Laboratory - Microbiology an d Antimicrobial susceptibilityOrdered By: Víctor Huerta on 01-02-2024 Bacteria identified Cx Nom (Bld) No growth in 5 days. [facility] SARS-CoV-2 (COVID-19) RNA KANDY+probe Ql (Unsp spec) [facility] Measurement, pHOrdered By: Tiffani Huerta on 01-02-2024 pH (Unsp spec) 7.42 [pH] 7.35-7.45 [facility] No Panel InformationOrdered By: Víctor Huerta on 01-02-2024 Arterial Blood Partial Pressure CO2 32.2 mmHg 35-45 [facility] Arterial Blood Partial Pressure O2 62 mmHG 75-100 [facility] Blood Gas Bicarbonate Actual 20.7 mmol/L 22-26 [facility] Blood Gas Oxygen Percent 21.0 [facility] Blood Gas Sample Site R Radial [facility] Blood Gas Specimen Type ART [facility] Blood Gas Vent Mode Not entered [facility] Oxygen Delivery Device Room Air [facility] Estimated Creatinine Clearance Calc 51.55 ml/min [facility] Estimated GFR (MDRD) Amer 77 mL/min >60 [facility] Comment on above: GFR Calc Estimated GFR (MDRD) Non-Af Amer 63 mL/min >60 [facility] Comment on above: Non- GFR Calc Troponin I High Sensitivity 13 pg/mL 3.0-54.0 [facility] Comment on above: Please Note: [place] t Units and Gender Specific Reference Ranges. For more information see Policy Stat Procedure [place] High Sensitivity Troponin (TNIH) and attachments. RBC Auto (Bld) [#/Vol]Ordere d By: Víctor Huerta on 01-02-2024 RBC (Bld) [#/Vol] 4.99 10*6/uL 4.2-5.4 [facility] Review by pathologistOrdered By: Víctor Huerta on 01-02-2024 Pathologist review Geovany (Unsp spec) [Interp] January [facility] Serum or plasma calcium esthela urement (mass/volume)Ordered By: Víctor Huerta on 01-02-2024 Calcium [Mass/Vol] 8.9 mg/dL 8.5-10.1 [facility] Serum or plasma creatinine m easurement (mass/volume)Ordered By: Víctor Huerta on 01-02-2024 Creatinine [Mass/Vol] 0.96 mg/dL 0.55-1.02 [facility] Comment on above: The validity of the calculated GFR & GFRAA in patients over 70 years has not been determined. Clinical correlation is essential. Serum or plasma urea nitroge n measurement (mass/volume)Ordered By: Víctor Huerta on 01-02-2024 Urea nitrogen [Mass/Vol] 14 mg/dL 7-18 [facility] Serum procalcitonin measurem entOrdered By: Carin Meraz on 01-02-2024 Procalcitonin [Mass/Vol] 0.11 ng/mL 0.00-0.09 [facility] Comment on above: A procalcitonin (PCT [...] smear with manual screening 3.2 g/dL 3.2-5.0 [facility] Thin prep Papanicolaou smear with manual screening 14 U/L 15-37 [facility] Thin prep Papanicolaou smear with manual screening 7 5-15 [facility] Influenza virus A and B and SARS-CoV-2 (COVID-19) Ag panel - Upper respiratory specimOrdered By: Tasneem Dykes on 07-08-2023 SARS-CoV-2 (COVID-19) RNA KANDY+probe Ql (Resp) [facility] Absolute lymphocyte countOrd ered By: ED PROVIDER on 06-02-2023 Lymphocytes Auto (Unsp spec) [#/Vol] 2.95 10*3/uL 0.83-4.51 [facility] Basophil percentageOrdered B y: ED PROVIDER on 06-02-2023 Basophils/100 WBC (Bld) 1.0 % 0-1 [facility] Chloride [Moles/Vol] 105 mmol/L 98-107 [facility] Eosinophils/100 WBC (Bld) 3.6 % 0-5 [facility] Glucose [Mass/Vol] 117 mg/dL 74-106 [facility] Comment on above: Fasting Glucose resu lt from 100 to 125 mg/dL suggests IMPAIRED HOMEOSTASIS per A.D.A. criteria. Neutrophils (Bld) [#/Vol] 7.4 10*3/uL 2.0-7.7 [facility] Neutrophils/100 WBC (Bld) 63.1 % 47-70 [facility] Potassium [Moles/Vol] 4.2 mmol/L 3.5-5.1 [facility] Sodium [Moles/Vol] 141 mmol/L 136-145 [facility] WBC (Bld) [#/Vol] 11.7 10*3/uL 4.4-11.0 [facility] Blood erythrocytes count (nu mber/volume)Ordered By: ED PROVIDER on 06-02-2023 RBC (Bld) [#/Vol] 4.88 10*6/uL 4.2-5.4 [facility] Blood hemoglobin measurement (mass/volume)Ordered By: ED PROVIDER on 06-02-2023 Hemoglobin (Bld) [Mass/Vol] 13.3 g/dL 12.0-15.0 [facility] Blood lymphocytes/100 leukoc ytesOrdered By: ED PROVIDER on 06-02-2023 Lymphocytes/100 WBC (Bld) 25.1 % 19-41 [facility] Blood monocytes/100 leukocyt esOrdered By: ED PROVIDER on 06-02-2023 Monocytes/100 WBC (Bld) 6.4 % 0-10 [facility] Blood platelet mean volumeOr dered By: ED PROVIDER on 06-02-2023 Platelet mean volume (Bld) [Entitic vol] 10.1 fL 6.2-12.0 [facility] Determination of erythrocyte mean corpuscular volume (MCV)Ordered By: ED PROVIDER on 06-02-2023 MCV (RBC) [Entitic vol] 83.2 fL 81-99 [facility] Hematocrit Auto (Bld) [Volum e fraction]Ordered By: ED PROVIDER on 06-02-2023 Hematocrit (Bld) [Volume fraction] 40.6 % 37-47 [facility] Influenza virus A and B and SARS-CoV-2 (COVID-19) Ag panel - Upper respiratory specimOrdered By: Levar Handy on 06-02-2023 SARS-CoV-2 (COVID-19) RNA KANDY+probe Ql (Resp) [facility] Laboratory - Chemistry and C hemistry - challengeOrdered By: ED PROVIDER on 06-02-2023 CO2 [Moles/Vol] 27.0 mmol/L 21.0-32.0 [facility] Urea nitrogen/Creatinine [Mass ratio] 6.9 mg/mg 10-20 [facility] Laboratory - Hematology and Cell countsOrdered By: ED PROVIDER on 06-02-2023 Erythrocyte distribution width (RBC) [Entitic vol] 46.1 fL 35.1-43.9 [facility] Erythrocyte distribution width (RBC) [Ratio] 15.3 % 11.6-14.6 [facility] Immature granulocytes/100 WBC (Bld) 0.800 % 0.0-0.9 [facility] Comment on above: IG% - Immature Granu locytes (promyelocytes, myelocytes and metamyelocytes) > 1% indicates that a LEFT SHIFT is Present. MCH (RBC) [Entitic mass] 27.3 pg 27.0-32.0 [facility] Nucleated RBC/100 WBC (Bld) [Ratio] 0 % 0-5 [facility] MCHC Auto (RBC) [Mass/Vol]Or dered By: ED PROVIDER on 06-02-2023 MCHC (RBC) [Mass/Vol] 32.8 g/dL 32-36 [facility] No Panel InformationOrdered By: ED PROVIDER on 06-02-2023 Estimated Creatinine Clearance Calc 56.88 ml/min [facility] Estimated GFR (MDRD) Amer 86 mL/min >60 [facility] Comment on above: GFR Calc Estimated GFR (MDRD) Non-Af Amer 71 mL/min >60 [facility] Comment on above: Non- GFR Calc Platelets bldOrdered By: ED PROVIDER on 06-02-2023 Platelets (Bld) [#/Vol] 361 10*3/uL 150-450 [facility] Serum or plasma calcium esthela urement (mass/volume)Ordered By: ED PROVIDER on 06-02-2023 Calcium [Mass/Vol] 9.3 mg/dL 8.5-10.1 [facility] Serum or plasma creatinine m easurement (mass/volume)Ordered By: ED PROVIDER on 06-02-2023 Creatinine [Mass/Vol] 0.87 mg/dL 0.55-1.02 [facility] Comment on above: The validity of the calculated GFR & GFRAA in patients over 70 years has not been determined. Clinical correlation is essential. Serum or plasma urea nitroge n measurement (mass/volume)Ordered By: ED PROVIDER on 06-02-2023 Urea nitrogen [Mass/Vol] 6 mg/dL 7-18 [facility] Thin prep Papanicolaou smear with manual screeningOrdered By: ED PROVIDER on 06-02-2023 Thin prep Papanicolaou smear with manual screening 9 5-15 [facility] Ophthalmic Eye [place] 2022 Ophthalmic Eye Exam DOCUMENT REVIEWED BY : Yrn Ortega DOCUMENT SIGNED ELECTRONICALLY BY Yrn Ortega ON 12/23/2022 09:55:17 PM [id number] [place], [address] THIS DOCUMENT WAS CREATED ON: 12/22/2022 02:52:23 PM BY: MARCELLA Hutchinson [id number] Exam Date: Thursday, December 22, 2022 PATIENT [...] to be resolving - Dr Jurado in [facility], No Mri done recently Context/Onset-several weeks ago, Location-right eye, HISTORY OF PRESENT ILLNESS: PROBLEM: Pt sts orbital swelling seen in ED and admission and resolved with antibiotics PT sts has reoccurrance about 3 weeks ago with swelling above right eye and currently on oral prednisone 20mg and was on oral antibiotics and seems to be resolving - Dr Jurado in [facility] CONTEXT/ONSET: several weeks ago LOCATION: right eye [...] [Reported] ARIPiprazole TABS - Tablet, [Reported] Creon [id number] UNIT Oral Capsule Delayed Release Particles - [...] CUP TO DISC: 0.4 0.4 OPTIC DISC: [place] and sharp [place] sharp VITREOUS: Clear Clear Impression 1 [...] without biopsy. - will inform Dr. Jurado ([facility]) [address] [place], [place] [id number], phone [phone] fax [phone] - consider further imaging if there is another recurrence of swelling f/u 10 weeks Yrn Ortega DOCUMENT CREATE DATE: 12/22/2022 02:52:23 PM Received for:Yrn Ortega MD Dec 23 2022 9:55PM Eastern Standard Time Normal [facility]works XR Lumbar spine 3 Viewson IMPRESSION: Lumbar spine degenerative changes as described above. Weathercaster: BABATUNDE Transcribe Date/Time: Nov 26 2022 2:44P Dictated by : CHELA GAMING MD This examination was interpreted and the report reviewed and electronically signed by: CHELA GAMING MD on Nov 26 2022 2:59PM [facility] DIVISION OF RADIOLOGY * * *Final [...] spine are presented. FINDINGS: There are five [id number] lumbar vertebrae. No acute fracture or subluxations [...] spine are presented. FINDINGS: There are five [id number] lumbar vertebrae. No acute fracture or subluxations are noted. The disc spaces are well preserved. There is minimal osteophyte formation. Kissing spine seen on lateral view. Others: There are vascular calcifications. IMPRESSION IMPRESSION: Lumbar spine degenerative changes as described above. Weathercaster[facility] Transcribe Date/Time: Nov 26 2022 2:44P Dictated by : CHELA GAMING MD This examination was interpreted and the report reviewed and electronically signed by: CHELA GAMING MD on Nov 26 2022 2:59PM EST [facility] XR Lumbar spine 3 ViewsOrder ed By: [facility] Provider on 11-26-2022 [facility] XR Lumbar spine 3 Viewson Radiology Study observation (narrative) [facility] XR CHEST 2V FRONTAL/LATon [facility] XR Chest PA and Lateralon IMPRESSION: No acute radiographic abnormality. Weathercaster: [facility] Transcribe Date/Time: Nov 11 2022 10:22P Dictated by : NANETTE OGDEN MD This examination was interpreted and the report reviewed and electronically signed by: NANETTE OGDEN MD on Nov 11 2022 10:23PM [facility] DIVISION OF RADIOLOGY * * *Final [...] soft tissues: Unremarkable. DIVISION OF RADIOLOGY Provider, [facility] - 11/11/2022 * * *Final Report* * [...] Unremarkable. IMPRESSION IMPRESSION: No acute radiographic abnormality. Weathercaster: [facility] Transcribe Date/Time: Nov 11 2022 10:22P Dictated by : NANETTE OGDEN MD This examination was interpreted and the report reviewed and electronically signed by: NANETTE OGDEN MD on Nov 11 2022 10:23PM EST [facility] Radiology Study observation (narrative) [facility] back [facility] XR Chest PA and LateralOrder ed By: [facility] Provider on 11-11-2022 [facility] Absolute lymphocyte countOrd ered By: Dr. Bonilla on 11-07-2022 Lymphocytes Auto (Unsp spec) [#/Vol] 2.70 10*3/uL 0.83-4.51 [facility] Basophil percentageOrdered B y: Dr. Bonilla on 11-07-2022 Basophils/100 WBC (Bld) 0.4 % 0-1 [facility] Chloride [Moles/Vol] 99 mmol/L 98-107 [facility] Eosinophils/100 WBC (Bld) 4.1 % 0-5 [facility] Glucose [Mass/Vol] 90 mg/dL 74-106 [facility] Neutrophils (Bld) [#/Vol] 8.0 10*3/uL 2.0-7.7 [facility] Neutrophils/100 WBC (Bld) 59.2 % 47-70 [facility] Potassium [Moles/Vol] 3.0 mmol/L 3.5-5.1 [facility] Sodium [Moles/Vol] 141 mmol/L 136-145 [facility] WBC (Bld) [#/Vol] 13.6 10*3/uL 4.4-11.0 [facility] Blood erythrocytes count (nu mber/volume)Ordered By: Dr. Bonilla on 11-07-2022 RBC (Bld) [#/Vol] 3.28 10*6/uL 4.2-5.4 [facility] Blood hemoglobin measurement (mass/volume)Ordered By: Dr. Bonilla on 11-07-2022 Hemoglobin (Bld) [Mass/Vol] 8.8 g/dL 12.0-15.0 [facility] Blood lymphocytes/100 leukoc ytesOrdered By: Dr. Bonilla on 11-07-2022 Lymphocytes/100 WBC (Bld) 19.9 % 19-41 [facility] Blood manual differential co mment interpretation (narrative result)Ordered By: Dr. Bonilla on 11-07-2022 Manual differential comment Geovany (Bld) [Interp] SCANNED [facility] Blood monocytes/100 leukocyt esOrdered By: Dr. Bonilla on 11-07-2022 Monocytes/100 WBC (Bld) 13.8 % 0-10 [facility] Blood platelet mean volumeOr dered By: Dr. Bonilla on 11-07-2022 Platelet mean volume (Bld) [Entitic vol] 9.9 fL 6.2-12.0 [facility] Determination of erythrocyte mean corpuscular volume (MCV)Ordered By: Dr. Bonilla on 11-07-2022 MCV (RBC) [Entitic vol] 83.5 fL 81-99 [facility] Hematocrit Auto (Bld) [Volum e fraction]Ordered By: Dr. Bonilla on 11-07-2022 Hematocrit (Bld) [Volume fraction] 27.4 % 37-47 [facility] Laboratory - Chemistry and C hemistry - challengeOrdered By: Dr. Bonilla on 11-07-2022 CO2 [Moles/Vol] 36.0 mmol/L 21.0-32.0 [facility] Urea nitrogen/Creatinine [Mass ratio] 15.6 mg/mg 10-20 [facility] Laboratory - Hematology and Cell countsOrdered By: Dr. Bonilla on 11-07-2022 Erythrocyte distribution width (RBC) [Entitic vol] 45.4 fL 35.1-43.9 [facility] Erythrocyte distribution width (RBC) [Ratio] 14.8 % 11.6-14.6 [facility] Immature granulocytes/100 WBC (Bld) 2.600 % 0.0-0.9 [facility] Comment on above: IG% - Immature Granu locytes (promyelocytes, myelocytes and metamyelocytes) > 1% indicates that a LEFT SHIFT is Present. MCH (RBC) [Entitic mass] 26.8 pg 27.0-32.0 [facility] Nucleated RBC/100 WBC (Bld) [Ratio] 0 % 0-5 [facility] MCHC Auto (RBC) [Mass/Vol]Or dered By: Dr. Bonilla on 11-07-2022 MCHC (RBC) [Mass/Vol] 32.1 g/dL 32-36 [facility] No Panel InformationOrdered By: Dr. Bonilla on 11-07-2022 Estimated Creatinine Clearance Calc 52.20 ml/min [facility] Estimated GFR (MDRD) Amer 76 mL/min >60 [facility] Comment on above: GFR Calc Estimated GFR (MDRD) Non-Af Amer 63 mL/min >60 [facility] Comment on above: Non- GFR Calc Platelets bldOrdered By: Dr. Bonilla on 11-07-2022 Platelets (Bld) [#/Vol] 395 10*3/uL 150-450 [facility] Review by pathologistOrdered By: Dr. Bonilla on 11-07-2022 Pathologist review Geovany (Unsp spec) [Interp] Reviewed [facility] Comment on above: Previous reported re sult: Tiesha gotti Edited by: RGOOD on 11/07/22:1323Leukocytosis with Neutrophilic left shift. Normocytic anemia.Clinical correlation necessary.Javier Best M.D. 11/07/22 AMENDED REPORT 11/07/22 1323 PATH REV previously reported as: Tiesha gotti Serum or plasma calcium esthela urement (mass/volume)Ordered By: Dr. Bonilla on 11-07-2022 Calcium [Mass/Vol] 8.4 mg/dL 8.5-10.1 [facility] Serum or plasma creatinine m easurement (mass/volume)Ordered By: Dr. Bonilla on 11-07-2022 Creatinine [Mass/Vol] 0.96 mg/dL 0.55-1.02 [facility] Comment on above: The validity of the calculated GFR & GFRAA in patients over 70 years has not been determined. Clinical correlation is essential. Serum or plasma urea nitroge n measurement (mass/volume)Ordered By: Dr. Bonilla on 11-07-2022 Urea nitrogen [Mass/Vol] 15 mg/dL 7-18 [facility] Thin prep Papanicolaou smear with manual screeningOrdered By: Dr. Bonilla on 11-07-2022 Thin prep Papanicolaou smear with manual screening 6 5-15 [facility] Laboratory - Hematology and Cell countsOrdered By: Dr. Bonilla on 11-06-2022 Anisocytosis Ql (Bld) 1+ [facility] Assessment of wrist artery p atency prior to arterial punctureOrdered By: Dr. Bonilla on 11-05-2022 Arterial patency Wrist artery --pre arterial puncture N/A [facility] Base excessOrdered By: Dr. Melchor camargo on 11-05-2022 Base excess Calc (BldV) [Moles/Vol] -10 mmol/L -2-2 [facility] Basophil percentageOrdered B y: Dr. Bonilla on 11-05-2022 Basophil percentage 17.6 mmol/L 22-26 [facility] Basophils/100 WBC (Bld) 97 % 95-99 [facility] CO2 (BldA) [Partial pressure ]Ordered By: Dr. Bonilla on 11-05-2022 CO2 (Bld) [Partial pressure] 44.1 mm[Hg] 35-45 [facility] Laboratory - Chemistry and C hemistry - challengeOrdered By: Dr. Sebastian on 11-05-2022 Lipase [Catalytic activity/Vol] 112 U/L 73-393 [facility] Laboratory - CoagulationOrde red By: Dr. Bonilla on 11-05-2022 aPTT Coag (Bld) [Time] 68.4 s 24.1-36.2 [facility] No Panel InformationOrdered By: Dr. Bonilla on 11-05-2022 Bld Gas Crit Called To/Read Back By Yes [facility] Blood Gas Liter Flow 3.0 /min [facility] Blood Gas Notified Whom Dr Sebastian [facility] Blood Gas Sample Site L Radial [facility] Blood Gas Specimen Type ART [facility] Blood Gas Total CO2 19 mmol/L [facility] Oxygen Delivery Device Cannula [facility] Oxygen (BldA) [Partial press ure]Ordered By: Dr. Bonilla on 11-05-2022 Oxygen (Bld) [Partial pressure] 107 mmHG 75-100 [facility] Serum or plasma vancomycin m easurement (mass/volume)Ordered By: Dr. Bonilla on 11-05-2022 Vancomycin [Mass/Vol] 18.2 ug/mL 0.0-15.0 [facility] Comment on above: VANCOMYCIN STANDARD DRUG THERAPY: CRITICAL VALUE IS > 15.0 mg/L VANCOMYCIN HIGH INTENSITY THERAPY: CRITICAL VALUE IS > 20.0 mg/L PLEASE CONTACT PHARMACY SERVICES (#[id number]) FOR INTERPRETATIONOF RESULTS. THIS RESULT DOES NOT REPRESENT A PEAK OR TROUGHLEVEL FOR THIS DRUG. pH measurementOrdered By: Dr Max Bonilla on 11-05-2022 pH (Unsp spec) 7.21 [pH] 7.35-7.45 [facility] Basophil percentageOrdered B y: Dr. Iverson on 11-04-2022 Basophil percentage 0-5 SEEN /hpf 0-5 [facility] Basophil percentageOrdered B y: Dr. Bonilla on 11-04-2022 Lactate [Moles/Vol] 1.4 mmol/L 0.4-2.0 [facility] Bilirubin Test strip Ql (U)O rdered By: Dr. Iverson on 11-04-2022 Bilirubin Ql (U) Negative Negative [facility] INR in Blood by Coagulation assayOrdered By: Dr. Bonilla on 11-04-2022 INR Coag (Bld) [Relative time] 1.2 {INR} [facility] Ketones Test strip Ql (U)Ord ered By: Dr. Iverson on 11-04-2022 Ketones Ql (U) Negative Negative [facility] Laboratory - CoagulationOrde red By: Dr. Bonilla on 11-04-2022 PT Coag (PPP) [Time] 14.6 s 11.7-14.9 [facility] Mucus LM Ql (Urine sed)Order ed By: Dr. Iverson on 11-04-2022 Mucus Ql (Urine sed) 0 SEEN /hpf [facility] Nitrite Test strip Ql (U)Ord ered By: Dr. Iverson on 11-04-2022 Nitrite Ql (U) Negative Negative [facility] No Panel InformationOrdered By: Dr. Bonilla on 11-04-2022 Blood Gas Oxygen Percent 30 [facility] Blood Gas Respiration Rate 12 [facility] Urine Urea Nitrogen 302 mg/dL NO RANGE EST. [facility] Protein Test strip Ql (U)Ord ered By: Dr. Iverson on 11-04-2022 Protein Ql (U) 30 mg/dl Negative [facility] Squamous epithelial cells de tection in urine sediment by light microscopyOrdered By: Dr. Iverson on 11-04-2022 Epithelial cells.squamous LM Ql (Urine sed) 0 SEEN /hpf 5-10 [facility] Urine blood detectionOrdered By: Dr. Iverson on 11-04-2022 RBC Ql (U) 150 /ul Negative [facility] RBC Ql (U) 10-25 SEEN /hpf 0-5 [facility] Urine clarityOrdered By: Dr. Iverson on 11-04-2022 Clarity (U) Clear Clear [facility] Urine color determinationOrd ered By: Dr. Iverson on 11-04-2022 Color (U) Yellow Yellow [facility] Urine creatinine measurement (mass/volume)Ordered By: Dr. Bonilla on 11-04-2022 Creatinine (U) [Mass/Vol] 33.40 mg/dL NO RANGE EST. [facility] Urine glucose detectionOrder ed By: Dr. Iverson on 11-04-2022 Glucose Ql (U) 50 mg/dl Normal [facility] Urine leukocyte esterase det ection by dipstickOrdered By: Dr. Iverson on 11-04-2022 Leukocyte esterase Test strip Ql (U) Negative Negative [facility] Urine pHOrdered By: Dr. Feng sanders on 11-04-2022 pH (U) 6.0 [pH] 5.0 - 8.0 [facility] Urine sediment bacteria coun t by microscopy (number/high power field)Ordered By: Dr. Iverson on 11-04-2022 Bacteria LM.HPF (Urine sed) [#/Area] RARE /hpf None Seen [facility] Urine specific gravity measu rementOrdered By: Dr. Iverson on 11-04-2022 Specific gravity (U) [Rel density] 1.015 1.002-1.030 [facility] Urobilinogen Auto test strip Ql (U)Ordered By: Dr. Iverson on 11-04-2022 Urobilinogen Ql (U) Normal mg/dl Normal [facility] Basophil percentageOrdered B y: Dr. Ross on 11-03-2022 Bilirubin [Mass/Vol] 0.20 mg/dL 0.20-1.00 [facility] Comment on above: For patients on eltr ombopag therapy, use of Dimension [place] TBIL is not recommended. Protein [Mass/Vol] 5.7 g/dL 6.4-8.2 [facility] Laboratory - Chemistry and C hemistry - challengeOrdered By: Dr. Ross on 11-03-2022 ALP [Catalytic activity/Vol] 97 U/L 45-117 [facility] ALT [Catalytic activity/Vol] 31 U/L 13-56 [facility] Globulin (S) [Mass/Vol] 3.5 g/dL 2.2-4.2 [facility] Laboratory - Microbiology an d Antimicrobial susceptibilityOrdered By: Dr. Ross on 11-03-2022 Respiratory pathogens DNA and RNA 12b panel KANDY+probe (Unsp spec) [facility] Serum or plasma albumin esthela urement (mass/volume)Ordered By: Dr. Ross on 11-03-2022 Albumin [Mass/Vol] 2.2 g/dL 3.2-5.0 [facility] Serum or plasma albumin/glob ulin mass ratioOrdered By: Dr. Ross on 11-03-2022 Albumin/Globulin [Mass ratio] 0.6 {ratio} 0.9-2.4 [facility] Thin prep Papanicolaou smear with manual screeningOrdered By: Dr. Ross on 11-03-2022 Thin prep Papanicolaou smear with manual screening 36 U/L 15-37 [facility] No Panel InformationOrdered By: Dr. Ochoa on 11-02-2022 Bedside Blood Gas PEEP 8 [facility] Stool Calprotectin 118 ug/g 0-120 [facility] Comment on above: Concentration Interp retation Follow-Up<16 - 50 ug/g Normal None>50 -120 ug/g Borderline Re-evaluate in 4-6 weeks >120 ug/g Abnormal Repeat as clinically indicated No Panel InformationOrdered By: Dr. Fatima on 11-02-2022 Troponin I High Sensitivity 92 pg/mL 3.0-54.0 [facility] Comment on above: Please Note: New [place] t Units and Gender Specific Reference Ranges. For more information see Policy Stat Procedure [place] High Sensitivity Troponin (TNIH) and attachments. Stool pHOrdered By: Dr. Pj smallwood on 11-02-2022 pH (Stl) 6.0 7.0-7.5 [facility] Comment on above: Performed at: - [address] [id number] Director: Marvin Quintanilla MD, Phone: [phone] at: - [facility] [id number] Director: Tj Mendoza PhD, Phone: [phone] Chart Updateon 11-01-2022 Chart Update Chart Update Received page to [facility] clinic pager that Pt is calling for internal medicine. Reviewed chart and noted pt was not a [facility] clinic patient but had recently been D/C from [facility]. Attempted to call phone answering service but was unable to connect with the entertainment agent who processed the call for more information. Called pt and informed her that I was a resident with the [facility] clinic and her message was likely sent to me in error, she was concerned that she had not been urinating much recently despite drinking a significant amount of water (estimated 12 12 oz bottles since last night). She further stated she had called her PCP office today regarding this issue and reached an on-call POLYSTYRENE MOLDING MACHINE TENDER who recommended she present to the ED [...] Nov 01 2022 11:56AM EST (Author) Normal [employer] Telephone Encounteron 2022 Heavy Equipment Field Mechanic Authentication Interface Message Text Situation: Patient states she was prescribed medication by and medication making her mouth dry (Patient not established with PCP at this time) Background: see above Assessment: Advised patient to reached out to prescribing provider- Recommendation: Verbalized understanding-Provided number to Normal [employer] ANCA-ASSOCIATED VASCULITIS P ROFILE [ANCA,MPO,PR3]on 10-30-2022 ANCA IFA PATTERN Not detected Normal None Detected [facility] Comment on above: Result Comment: INTE RPRETIVE INFORMATION: ANCA IFA Pattern Neutrophil Cytoplasmic Antibodies (C-ANCA = granular cytoplasmic staining, P-ANCA = perinuclear staining) are found in the serum of over 90 percent of patients with certain necrotizing systemic vasculitides, and usually in less than 5 percent of patients with collagen vascular disease or arthritis. Performed By: [employer] [address] [place] [address] Hyperbaric Technologist: Kyle Hyatt MD, PhD Performed By: #### A [facility] #### [employer] [address] [place] [address] ANCA IFA TITER <1:20 Normal <1:20 [facility] Comment on above: Performed By: #### A [place] #### [address] [place] [address] MYELOPEROXIDASE AB 0 AU/mL Normal 0-19 [facility] Comment on above: Result Comment: INTE RPRETIVE INFORMATION: Myeloperoxidase Abs, IgG 19 AU/mL or Less ......... Negative 20-25 AU/mL .............. Equivocal 26 AU/mL or Greater ...... Positive Approximately 90% of patients with a P-ANCA pattern by IFA have antibodies specific for MPO. Performed By: #### A NC #### [address] [address] PROTEINASE-3 0 AU/mL Normal 0-19 [facility] Comment on above: Result Comment: INTE RPRETIVE INFORMATION: Serine Proteinase 3, IgG 19 AU/mL or Less ........ Negative 20-25 AU/mL ............. Equivocal 26 AU/mL or Greater ..... Positive Approximately 85% of patients with a C-ANCA pattern by IFA have antibodies specific for PR3. Performed By: #### A [facility] #### [address] [address] Clinical Event Note-Ophthalm ology follow upon 10-29-2022 [...] Note Last Updated: 30-Oct-2022 12:22 by Yrn Ortgea) Normal [facility] LYSOZYMEon 10-29-2022 LYSOZYME 9.0 ug/mL Normal 2.5-12.9 [facility] Comment on above: Result Comment: [...] 9.5 Performed By: #### C MP #### [facility] [address] [place] [address] RENAL FUNCTION PANELon 10-29 Albumin [Mass/Vol] 3.8 g/dL Normal 3.4 - 5.0 [facility] Comment on above: Performed By: #### R ENAL #### [facility] [address] [place] [address] Anion gap [Moles/Vol] 15 mmol/L Normal 10 - 20 [facility] Comment on above: Performed By: #### R ENAL #### [facility] [address] [place] [address] Calcium [Mass/Vol] 9.5 mg/dL Normal 8.6 - 10.6 [facility] Comment on above: Performed By: #### R ENAL #### [facility] [address] [place] [address] Chloride [Moles/Vol] 100 mmol/L Normal 98 - 107 [facility] Comment on above: Performed By: #### R ENAL #### [facility] [address] [place] [address] Creatinine [Mass/Vol] 1.40 mg/dL High 0.50 - 1.05 [facility] Comment on above: Performed By: #### R ENAL #### [facility] [address] [place] [address] GFR/1.73 sq M.predicted among non-blacks MDRD (S/P/Bld) [Vol rate/Area] 43 mL/min/{1.73_m2} Abnormal >90 [facility] Comment on above: Result Comment: CALC ULATIONS OF ESTIMATED GFR ARE PERFORMED USING THE 2020 CKD-EPI STUDY REFIT EQUATION WITHOUT THE RACE VARIABLE FOR THE IDMS-TRACEABLE CREATININE METHODS. https://jasn.asnjournals.org/content/early/ASN.2020 566802 Performed By: #### R ENAL #### [facility] [address] [place] [address] Glucose [Mass/Vol] 109 mg/dL High 74 - 99 [facility] Comment on above: Performed By: #### R ENAL #### [facility] [address] [place] [address] HCO3 (Bld) [Moles/Vol] 23 mmol/L Normal 21 - 32 [facility] Comment on above: Performed By: #### R ENAL #### [facility] [address] [place] [address] Phosphate [Mass/Vol] 4.4 mg/dL Normal 2.5 - 4.9 [facility] Comment on above: Result Comment: The performance characteristics of phosphorus testing in heparinized plasma have been validated by the individual laboratory site where testing is performed. Testing on heparinized plasma is not approved by the FDA; however, such approval is not necessary. Performed By: #### R ENAL #### [facility] [address] [place] [address] Potassium [Moles/Vol] 3.4 mmol/L Low 3.5 - 5.3 [facility] Comment on above: Performed By: #### R ENAL #### [facility] [address] [place] [address] Sodium [Moles/Vol] 135 mmol/L Low 136 - 145 [facility] Comment on above: Performed By: #### R ENAL #### [facility] [address] [place] [address] Urea nitrogen [Mass/Vol] 11 mg/dL Normal 6 - 23 [facility] Comment on above: Performed By: #### R ENAL #### [facility] [address] [place] [address] Renal Function Panelon 10-29 Albumin BCP dye [...] [Mass/Vol] 4.4 mg/dL 2.5 - 4.9 [facility]- Wilfrid Giang Work Phone: Comment on above: [...] nitrogen [Mass/Vol] 11 mg/dL 6 - 23 [facility] Work Phone: Renal Function Panel 43 {mL/min/1.73m2} Abnormal >90 [facility] Work Phone: Comment on above: CALCULATIONS OF PAVAN MATED GFR ARE PERFORMED USING THE 2020 CKD-EPI STUDY REFIT EQUATION WITHOUT THE RACE VARIABLE FOR THE IDMS-TRACEABLE CREATININE METHODS.https://jasn.asnjournals.org/content/early/ ASN.7527204042 BLOOD CULTURE, BACTERIALon 0 10-28-2022 BLOOD CULTURE, BACTERIAL PATIENT: GRACIE BANUELOS LOCATION: [place] [address] BILL#: [id number] : 61 AGE: SEX: F ORDERED BY: JUSTYN RICHTER SOURCE: Blood COLLECTED: 10/28/22 12:04 ANTIBIOTICS AT DEB.: RECEIVED : 10/28/22 16:14 SITE: PERIPHERAL R E S U L T S BLOOD CULTURE, BACTERIAL FINAL 11/01/22 17:42 No Growth at 1 days No Growth at 2 days No Growth at 3 days NO GROWTH at 4 days - FINAL REPORT Normal [facility] Comment on above: Performed By: #### B [facility] #### [facility] [address] [facility] [place] [address] BLOOD CULTURE, BACTERIAL PATIENT: GRACIE BANUELOS LOCATION: 020 0 BILL#: [id number] : 61 AGE: SEX: F ORDERED BY: JUSTYN RICHTER SOURCE: Blood COLLECTED: 10/28/22 12:04 ANTIBIOTICS AT DEB.: RECEIVED : 10/28/22 16:14 SITE: PERIPHERAL R E S U L T S BLOOD CULTURE, BACTERIAL FINAL 11/01/22 17:42 No Growth at 1 days No Growth at 2 days No Growth at 3 days NO GROWTH at 4 days - FINAL REPORT Normal [facility] Comment on above: Performed By: #### C #### [facility] [address] [place] [address] CBC AND DIFFERENTIALon 10-28 % AUTOMATED IMMATURE GRAN 0.9 % Normal 0.0 - 0.9 [facility] Comment on above: Result Comment: Iram ture Granulocyte Count (IG) includes promyelocytes, myelocytes and metamyelocytes but does not include bands. Percent differential counts (%) should be interpreted in the context of the absolute cell counts (cells/L). Performed By: #### C BCDF #### [facility] [address] [place] [address] Basophils (Bld) [#/Vol] 0.04 10*3/uL Normal 0.00 - 0.[address] [facility] Comment on above: Performed By: #### C BCDF #### [facility] [address] [place] [address] Basophils/100 WBC (Bld) 0.5 % Normal 0.0 - 2.0 U [facility] Comment on above: Performed By: #### C BCDF #### [facility] [address] [place] [address] Eosinophils (Bld) [#/Vol] 0.45 10*3/uL Normal 0.00 - 0.70 [facility] Comment on above: Performed By: #### C BCDF #### [facility] [address] [place] [address] Eosinophils/100 WBC (Bld) 5.5 % Normal 0.0 - 6.0 [facility] Comment on above: Performed By: #### C BCDF #### [facility] [address] [place] [address] Erythrocyte distribution width (RBC) [Ratio] 13.5 % Normal 11.5 - 14.5 [facility] Comment on above: Performed By: #### C BCDF #### [facility] [address] [place] [address] Hematocrit (Bld) [Volume fraction] 35.2 % Low 36.0 - 46.0 [facility] Comment on above: Performed By: #### C BCDF #### [facility] [address] [place] [address] Hemoglobin (Bld) [Mass/Vol] 11.2 g/dL Low 12.0 - 16.0 [facility] Comment on above: Performed By: #### C BCDF #### [facility] [address] [place] [address] Lymphocytes (Bld) [#/Vol] 0.72 10*3/uL Low 1.20 - 4.80 [facility] Comment on above: Performed By: #### C BCDF #### [facility] [address] [place] [address] Lymphocytes/100 WBC (Bld) 8.7 % Normal 13.0 - 44.0 [facility] Comment on above: Performed By: #### C BCDF #### [facility] [address] [place] [address] MCHC (RBC) [Mass/Vol] 31.8 g/dL Low 32.0 - 36.0 [facility] Comment on above: Performed By: #### C BCDF #### [facility] [address] [place] [address] MCV (RBC) [Entitic vol] 85 fL Normal 80 - 100 [facility] Comment on above: Performed By: #### C BCDF #### [facility] [address] [place] [address] Monocytes (Bld) [#/Vol] 0.72 10*3/uL Normal 0.10 - 1.[address] [facility] Comment on above: Performed By: #### C BCDF #### [facility] [address] [place] [address] Monocytes/100 WBC (Bld) 8.7 % Normal 2.0 - 10.0 [facility] Comment on above: Performed By: #### C BCDF #### [facility] [address] [place] [address] Neutrophils (Bld) [#/Vol] 6.23 10*3/uL Normal 1.20 - 7.70 [facility] Comment on above: Performed By: #### C BCDF #### [facility] [address] [place] [address] Neutrophils/100 WBC (Bld) 75.7 % Normal 40.0 - 80.0 [facility] Comment on above: Performed By: #### C BCDF #### [facility] [address] [place] [address] NUCLEATED RBC 0.0 /100 WBC Normal 0.0-0.0 [facility] Comment on above: Performed By: #### C BCDF #### [facility] [address] [place] [address] Platelets (Bld) [#/Vol] 233 10*3/uL Normal 150 - 450 [facility] Comment on above: Performed By: #### C BCDF #### [facility] [address] [place] [address] RBC 4.15 x10E12/L Normal 4.00 - 5.20 [facility] Comment on above: Performed By: #### C BCDF #### [facility] [address] [place] [address] WBC (Bld) [#/Vol] 8.2 10*3/uL Normal 4.4 - 11.3 [facility] Comment on above: Performed By: #### C BCDF #### [facility] [address] [place] [address] % AUTOMATED IMMATURE GRAN Canceled Normal [facility] Comment on above: Order Comment: TEST CBC AND DIFFERENTIAL WAS CANCELLED, 10/28/2022 16:16 Result Comment: Iram ture Granulocyte Count (IG) includes promyelocytes, myelocytes and metamyelocytes but does not include bands. Percent differential counts (%) should be interpreted in the context of the absolute cell counts (cells/L). Performed By: #### V ANCU #### [facility] [address] [place] [address] % BASOPHIL Canceled Normal [facility] Comment on above: Order Comment: TEST CBC AND DIFFERENTIAL WAS CANCELLED, 10/28/2022 16:16 Performed By: #### V ANCU #### [facility] [address] [place] [address] % EOSINOPHIL Canceled Normal [facility] Comment on above: Order Comment: TEST CBC AND DIFFERENTIAL WAS CANCELLED, 10/28/2022 16:16 Performed By: #### V ANCU #### [facility] [address] [place] [address] % LYMPHOCYTE Canceled Normal [facility] Comment on above: Order Comment: TEST CBC AND DIFFERENTIAL WAS CANCELLED, 10/28/2022 16:16 Performed By: #### V ANCU #### [facility] [address] [place] [address] % MONOCYTE Canceled Normal [facility] Comment on above: Order Comment: TEST CBC AND DIFFERENTIAL WAS CANCELLED, 10/28/2022 16:16 Performed By: #### V ANCU #### [facility] [address] [place] [address] % NEUTROPHIL Canceled Normal [facility] Comment on above: Order Comment: TEST CBC AND DIFFERENTIAL WAS CANCELLED, 10/28/2022 16:16 Performed By: #### V ANCU #### [facility] [address] [place] [address] [address] [facility] Comment on above: Order Comment: TEST CBC AND DIFFERENTIAL WAS CANCELLED, 10/28/2022 16:16 Performed By: #### V ANCU #### [facility] [address] [place] [address] [facility] Comment on above: Order Comment: TEST CBC AND DIFFERENTIAL WAS CANCELLED, 10/28/2022 16:16 Performed By: #### V ANCU #### [facility] [address] [place] [address] [address] [facility] Comment on above: Order Comment: TEST CBC AND DIFFERENTIAL WAS CANCELLED, 10/28/2022 16:16 Performed By: #### V ANCU #### [facility] [address] [place] [address] [facility] Comment on above: Order Comment: TEST CBC AND DIFFERENTIAL WAS CANCELLED, 10/28/2022 16:16 Performed By: #### V ANCU #### [facility] [address] [place] [address] [facility] Comment on above: Order Comment: TEST CBC AND DIFFERENTIAL WAS CANCELLED, 10/28/2022 16:16 Performed By: #### V ANCU #### [facility] [address] [place] [address] L[address] C[address] Normal [facility] Comment on above: Order Comment: TEST CBC AND DIFFERENTIAL WAS CANCELLED, 10/28/2022 16:16 Performed By: #### V ANCU #### [facility] [address] [place] [id number] MCHC Canceled Normal [facility] Comment on above: Order Comment: TEST CBC AND DIFFERENTIAL WAS CANCELLED, 10/28/2022 16:16 Performed By: #### V ANCU #### [facility] [address] [place] [address] MCV Canceled Normal [facility] Comment on above: Order Comment: TEST CBC AND DIFFERENTIAL WAS CANCELLED, 10/28/2022 16:16 Performed By: #### V ANCU #### [facility] [address] [place] [address] MONOCYTE Canceled Normal [facility] Comment on above: Order Comment: TEST CBC AND DIFFERENTIAL WAS CANCELLED, 10/28/2022 16:16 Performed By: #### V ANCU #### [facility] [address] [place] [address] NEUTROPHIL Canceled Normal [facility] Comment on above: Order Comment: TEST CBC AND DIFFERENTIAL WAS CANCELLED, 10/28/2022 16:16 Performed By: #### V ANCU #### [facility] [address] [place] [address] NUCLEATED RBC Canceled Normal [facility] Comment on above: Order Comment: TEST CBC AND DIFFERENTIAL WAS CANCELLED, 10/28/2022 16:16 Performed By: #### V ANCU #### [facility] [address] [place] [address] [facility] Comment on above: Order Comment: TEST CBC AND DIFFERENTIAL WAS CANCELLED, 10/28/2022 16:16 Performed By: #### V ANCU #### [facility] [address] [place] [address] [facility] Comment on above: Order Comment: TEST CBC AND DIFFERENTIAL WAS CANCELLED, 10/28/2022 16:16 Performed By: #### V ANCU #### [facility] [address] [place] [address] RDW-CV Canceled Normal [facility] Comment on above: Order Comment: TEST CBC AND DIFFERENTIAL WAS CANCELLED, 10/28/2022 16:16 Performed By: #### V ANCU #### [facility] [address] [place] [address] [facility] Comment on above: Order Comment: TEST CBC AND DIFFERENTIAL WAS CANCELLED, 10/28/2022 16:16 Performed By: #### V ANCU #### [facility] [address] 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 Patient Location [address] Drug Name: Bactrim DS 800 mg-160 mg oral tablet Instructions: 1 tab(s) orally 2 times a day STOP DATE 11/04/22 -.ADOD - .10/28 Meds to Beds .Patient Location [address] Drug Name: hydrOXYzine hydrochloride 25 mg oral tablet Instructions: 1 tab(s) orally every 6 hours, As needed, ITCHING -.ADOD - .10/28 Meds to Beds .Patient Location [address] Drug Name: loperamide 2 mg oral capsule Instructions: 1 cap(s) orally every 4 hours, As needed, Diarrhea -.ADOD - .10/28 Meds to Beds .Patient Location [address] 2026 Medications Deliveredsee above Medications Delivered Topatient; nurse Delivery Date/[id number] 11:43 Controlled Medications Given ToElizabeth Shanae Medications ReviewedReviewed medication timing, indication, and ADR with patient. Education TopicADR counseling; dosage, frequency, storage; medication indication; medication interactions Learnerpatient Barriers to Learningnone Methodverbal Outcome Evaluation2=meets goals/outcomes Allergy: Allergies Summary Allergy Allergen: penicillin Type: Drug Reaction: Hives/Urticaria Electronic Signatures: Aris Pugh ([facility]) (Signed 30-Oct-2022 07:56) Co-Signer: Discharge Meds, Allergy Hollis Archibald ([facility]) (Signed 28-Oct-2022 12:44) Authored: Discharge Meds, Allergy Last Updated: 30-Oct-2022 07:56 by Aris Pugh ([facility]) Normal [facility] Complete Blood Count + Diffe yamil 10-28-2022 Basophils/100 WBC (Bld) 0.5 % 0.0 - 2.0 M [facility]fr[facility]ang Work Phone: Erythrocyte distribution width (RBC) [Ratio] 13.5 % See Below [employer] [email or web address] Work Phone: Comment on above: Reference Range: 11. 5 - 14.5 Hematocrit (Bld) [Volume fraction] 35.2 % below low threshold See Below [facility]- Wilfrid Giang Work Phone: Comment on above: Reference Range: 36. 0 - 46.0 Hemoglobin (Bld) [Mass/Vol] 11.2 g/dL below low threshold See Below [facility] Wilfrid Giang Work Phone: Comment on above: Reference Range: 12. 0 - 16.0 Lymphocytes/100 WBC (Bld) 8.7 % See Below [facility]- Wilfrid Giang Work Phone: Comment on above: Reference Range: 13. 0 - 44.0 MCHC (RBC) [Mass/Vol] 31.8 g/dL below low threshold See Below [facility] Wilfrid Giang Work Phone: [phone] Comment on above: Reference Range: 32. 0 - 36.0 MCV (RBC) [Entitic vol] 85 fL 80 - 100 M [employer]ley[employer]lices Giang Work Phone: [phone] Monocytes/100 WBC (Bld) 8.7 % 2.0 - 10.0 M KayleyUlices Giang Work Phone: [phone] Neutrophils/100 WBC (Bld) 75.7 % See Below [facility] Work Phone: [phone] Comment on above: Reference Range: 40. 0 - 80.0 Platelets (Bld) [#/Vol] 233 10*3/uL 150 - 450 Ulices Giang Work Phone: [phone] RBC (Bld) [#/Vol] 4.15 {x10E12/L} See Below Ulices Giang Work Phone: [phone] Comment on above: Reference Range: 4.0 0 - 5.20 WBC (Bld) [#/Vol] 8.2 10*3/uL 4.4 - 11.3 [facility] Work Phone: [phone] Complete Blood Count + Differential 0.04 {x10E9/L} See Below Ulices Giang Work Phone: [phone] Comment on above: Reference Range: 0.0 0 - 0.10 Complete Blood Count + Differential 0.45 {x10E9/L} See Below Ulices Giang Work Phone: [phone] Comment on above: Reference Range: 0.0 0 - 0.70 Complete Blood Count + Differential 0.72 {x10E9/L} below low threshold See Below Jerod Giang Work Phone: Comment on above: Reference Range: 0.1 0 - 1.00 Reference Range: 1.2 0 - 4.80 Complete Blood Count + Differential 6.23 {x10E9/L} See Below Ulices Giang Work Phone: [phone] Comment on above: Reference Range: 1.2 0 - 7.70 Complete Blood Count + Differential 5.5 % 0.0 - 6.0 [employer] Work Phone: Complete Blood Count + Differential 0.9 % 0.0 - 0.9 [employer] Work Phone: Comment on above: Immature Granulocyte Count (IG) includes promyelocytes, myelocytes and metamyelocytes but does not include bands. Percent differential counts (%) should be interpreted in the context of the absolute cell counts (cells/L). Complete Blood Count + Differential 0.0 {/100_WBC} 0.0-0.0 [employer] Work Phone: Cult, Bloodon 10-28-2022 Bacteria identified Cx Nom (Bld) [employer] Work Phone: Daily Progress Note-Infectio us Diseaseon [...] sloughing. Objective Data: Objective Information: T PRBPMAPSpO2 [id number]/8292% Date/Time10/28 13: 13: 13: 13: 13:07 Range(36.1C [...] OSH. First full day of therapy at [facility] was on 10/21. MRSA swab collected here today. Would continue to treat w/ PO amox-clav once ready for d/c. If MRSA swab is p (more content not included)... Normal [facility] Daily Progress Note-Ophthalm ologyon 10-28-2022 Daily Progress Note-Ophthalmology Service: Ophthalmology Subjective Data: GRACIE BANUELOS is a 57 year old Female who is Hospital Day # 6. Objective Data: Objective Information: T PRBPMAPSpO2 [id number]/7793% Date/Time10/28 11: 11: 11: 11: 11:31 Range(36.1C [...] progressed. On 10/19/22 she presented to the [place] [facility] and CT orbits showed findings concerning for right orbital cellulitis. WBC was reportedly 13.9, ESR 75, and CRP 42.6. She was prescribed clindamycin to take at home, but her pain only worsened and she presented to [facility] on 10/20/22 for further management. MRI orbits [...] CT Orbit Sella Inner, by report from [facility] shows: 1. Marked abnormality of the soft [...] which I personally reviewed, by report from [employer] shows Abnormal infiltration throughout the right retroantral and extraconal fat as well as the pterygopalatine fossa and diffusely throughout the right documentation liaison space with asymmetry of the muscles of mastication. Additional mild enlargement of the right inferior and lateral rectus. These fi (more content not included)... Normal [facility] HEPATIC FUNCTION PANELon Albumin [Mass/Vol] 3.5 g/dL Normal 3.4 - 5.0 [facility] Comment on above: Performed By: #### C MP #### [facility] [address] [place] [address] ALP [Catalytic activity/Vol] 90 U/L Normal 33 - 110 [facility] Comment on above: Performed By: #### C MP #### [facility] [address] [place] [address] ALT [Catalytic activity/Vol] 23 U/L Normal 7 - 45 [facility] Comment on above: Result Comment: Gretta ents treated with Sulfasalazine may generate falsely decreased results for ALT. Performed By: #### C MP #### [facility] [address] [place] [address] AST [Catalytic activity/Vol] 23 U/L Normal 9 - 39 [facility] Comment on above: Performed By: #### C MP #### [facility] [address] [place] [address] Bilirubin [Mass/Vol] 0.2 mg/dL Normal 0.0 - 1.2 [facility] Comment on above: Performed By: #### C MP #### [facility] [address] [place] [address] Bilirubin.indirect [Mass/Vol] 0.1 mg/dL Normal 0.0 - 0.3 [facility] Comment on above: Performed By: #### C MP #### [facility] [address] [place] [address] Protein [Mass/Vol] 6.3 g/dL Low 6.4 - 8.2 [facility] Comment on above: Performed By: #### C MP #### [facility] [address] [place] [address] Hepatic Function Panelon Albumin BCP dye [Mass/Vol] 3.5 g/dL 3.4 - 5.0 [facility] Wilfrid [facility]ang Work Phone: ALP [Catalytic activity/Vol] 90 U/L 33 - 110 [facility] Wilfrid [employer] Work Phone: [phone] ALT With P-5'-P [Catalytic activity/Vol] 23 U/L 7 - 45 [facility] Wilfrid Giang Work Phone: [phone] Comment on above: Patients treated wit h Sulfasalazine may generate falsely decreased results for ALT. AST With P-5'-P [Catalytic activity/Vol] 23 U/L 9 - 39 [facility] [email or web address] Work Phone: [phone] Bilirubin [Mass/Vol] 0.2 mg/dL 0.0 - 1.2 [facility] [email or web address] Work Phone: [phone] Bilirubin.direct [Mass/Vol] 0.1 mg/dL 0.0 - 0.3 [facility] [email or web address] Work Phone: Protein [Mass/Vol] 6.3 g/dL below low threshold 6.4 - 8.2 [facility] Wilfrid Giang Work Phone: RENAL FUNCTION PANELon 10-28 Albumin [Mass/Vol] 3.4 g/dL Normal 3.4 - 5.0 [facility] Comment on above: Performed By: #### C MP #### [facility] [address] [place] [address] Anion gap [Moles/Vol] 13 mmol/L Normal 10 - 20 [facility] Comment on above: Performed By: #### C MP #### [facility] [address] [place] [address] Calcium [Mass/Vol] 8.7 mg/dL Normal 8.6 - 10.6 [facility] Comment on above: Performed By: #### C MP #### [facility] [address] [place] [address] Chloride [Moles/Vol] 104 mmol/L Normal 98 - 107 [facility] Comment on above: Performed By: #### C MP #### [place] [address] [place] [address] Creatinine [Mass/Vol] 1.39 mg/dL High 0.50 - 1.05 [facility] Comment on above: Performed By: #### C MP #### [facility] [address] [place] [address] GFR/1.73 sq M.predicted among non-blacks MDRD (S/P/Bld) [Vol rate/Area] 44 mL/min/{1.73_m2} Abnormal >90 [facility] Comment on above: Result Comment: CALC ULATIONS OF ESTIMATED GFR ARE PERFORMED USING THE 2020 CKD-EPI STUDY REFIT EQUATION WITHOUT THE RACE VARIABLE FOR THE IDMS-TRACEABLE CREATININE METHODS. https://jasn.asnjournals.org/content/early/ASN.2020 832831 Performed By: #### C MP #### [facility] [address] [place] [address] Glucose [Mass/Vol] 85 mg/dL Normal 74 - 99 [facility] Comment on above: Performed By: #### C MP #### [facility] [address] [place] [address] HCO3 (Bld) [Moles/Vol] 26 mmol/L Normal 21 - 32 [facility] Comment on above: Performed By: #### C MP #### [facility] [address] [place] [address] Phosphate [Mass/Vol] 4.1 mg/dL Normal 2.5 - 4.9 [facility] Comment on above: Result Comment: The performance characteristics of phosphorus testing in heparinized plasma have been validated by the individual laboratory site where testing is performed. Testing on heparinized plasma is not approved by the FDA; however, such approval is not necessary. Performed By: #### C MP #### [facility] [address] [place] [address] Potassium [Moles/Vol] 3.9 mmol/L Normal 3.5 - 5.3 [facility] Comment on above: Performed By: #### C MP #### [facility] [address] [place] [address] Sodium [Moles/Vol] 139 mmol/L Normal 136 - 145 [facility] Comment on above: Performed By: #### C MP #### [facility] [address] [place] [address] Urea nitrogen [Mass/Vol] 10 mg/dL Normal 6 - 23 [facility] Comment on above: Performed By: #### C MP #### [facility] [address] [place] [address] Renal Function Panelon 10-28 Albumin BCP dye [...] [Moles/Vol] 26 mmol/L 21 - 32 [facility] Wilfrid Giang Work Phone: Creatinine [Mass/Vol] 1.39 mg/dL above high threshold See Below [facility] Wilfrid Giang Work Phone: Comment on above: Reference Range: 0.5 0 - 1.05 Glucose [Mass/Vol] 85 mg/dL 74 - 99 [facility] rigoberto Giang Work Phone: Phosphate [Mass/Vol] 4.1 mg/dL 2.5 - 4.9 [facility] edrigoberto Giang Work Phone: Comment on above: The performance bruce acteristics of phosphorus testing in heparinized plasma have been validated by the individual laboratory site where testing is performed. Testing on heparinized plasma is not approved by the FDA; however, such approval is not necessary. Potassium [Moles/Vol] 3.9 mmol/L 3.5 - 5.3 [facility] Ulices Giang Work Phone: Sodium [Moles/Vol] 139 mmol/L 136 - 145 [facility] Work Phone: Urea nitrogen [Mass/Vol] 10 mg/dL 6 - 23 [facility] Work Phone: Renal Function Panel 44 {mL/min/1.73m2} Abnormal >90 [facility] Work Phone: Comment on above: CALCULATIONS OF PAVAN MATED GFR ARE PERFORMED USING THE 2020 CKD-EPI STUDY REFIT EQUATION WITHOUT THE RACE VARIABLE FOR THE IDMS-TRACEABLE CREATININE METHODS.https://jasn.asnjournals.org/content/early/ ASN.5971364579 UA MICROSCOPICon 10-28-2022 RBC 2 /HPF Normal 0-5 [facility] Comment on above: Performed By: #### C MP #### [facility] [address] [place] [address] SQUAMOUS EPITH. CELLS 7 /HPF Normal [facility] Comment on above: Performed By: #### C MP #### [place] [address] [place] [address] WBC 2 /HPF Normal 0-5 [facility] Comment on above: Performed By: #### C MP #### [facility] [address] [place] [address] URINALYSIS WITH CULTURE IF I NDICATEDon 10-28-2022 Appearance (U) HAZY Normal CLEAR [facility] Comment on above: Performed By: #### C MP #### [facility] [address] [place] [address] Bilirubin Ql (U) Negative Normal NEGATIVE [facility] Comment on above: Performed By: #### C MP #### [facility] [address] [place] [address] Color (U) YELLOW Normal STRAW,YELLOW [facility] Comment on above: Performed By: #### C MP #### [facility] [address] [place] [address] Glucose Ql (U) Negative Normal NEGATIVE [facility] Comment on above: Performed By: #### C MP #### [facility] [address] [place] [address] Hemoglobin Ql (U) Negative Normal NEGATIVE [facility] Comment on above: Performed By: #### C MP #### [facility] [address] [place] [address] Ketones Ql (U) Negative Normal NEGATIVE [facility] Comment on above: Performed By: #### C MP #### [facility] [address] [place] [address] Leukocyte esterase Test strip Ql (U) Negative Normal NEGATIVE [facility] Comment on above: Performed By: #### C MP #### [facility] [address] [place] [address] Nitrite Ql (U) Negative Normal NEGATIVE [facility] Comment on above: Performed By: #### C MP #### [facility] [address] [place] [address] pH (U) 6.0 [pH] Normal 5.0 - 8.0 [facility] Comment on above: Performed By: #### C MP #### [facility] [address] [place] [address] Protein Ql (U) 30 (1+) Abnormal NEGATIVE [facility] Comment on above: Performed By: #### C MP #### [facility] [address] [place] [address] Specific gravity (U) [Rel density] 1.020 Normal 1.005 - 1.035 [facility] Comment on above: Performed By: #### C MP #### [facility] [address] [place] [address] Urobilinogen (U) [Mass/Vol] mg/dL Normal 0.0 - 1.9 [facility] Comment on above: Performed By: #### C MP #### [facility] [address] [place] [address] Color (U) YELLOW See Below [facility] Wilfrid Giang Work Phone: [phone] Comment on above: Reference Range: STR AW,YELLOW Glucose Ql (U) Negative NEGATIVE [facility] Wilfrid Giang Work Phone: [phone] Ketones Ql (U) Negative NEGATIVE [facility] Wilfrid Giang Work Phone: Leukocyte esterase Test strip Ql (U) Negative NEGATIVE [facility] Wilfrid Giang Work Phone: [phone] pH (U) 6.0 [pH] 5.0 - 8.0 [facility] Wilfrid Giang Work Phone: [phone] Protein (U) [Mass/Vol] 30 (1+) Abnormal NEGATIVE [facility] Wilfrid Giang Work Phone: [phone] RBC (U) [#/Vol] Negative NEGATIVE [facility]- Wilfrid Giang Work Phone: [phone] Specific gravity (U) [Rel density] 1.020 1 See Below [facility] Wilfrid Giang Work Phone: Comment on above: Reference Range: 1.0 05 - 1.035 URINALYSIS WITH CULTURE IF INDICATED Negative NEGATIVE [facility] Wilfrid Giang Work Phone: [phone] URINALYSIS WITH CULTURE IF INDICATED <2.0 0.0 - 1.9 [facility] Wilfrid Giang Work Phone: URINALYSIS WITH CULTURE IF INDICATED HAZY CLEAR -[facility]- [place] Work Phone: Urinalysis, Microscopicon Urinalysis, Microscopic 7 {/HPF} M [facility] Wilfrid [place] Work Phone: Urinalysis, Microscopic 2 {/HPF} 0-5 M [facility] Work Phone: VANCOMYCINon 10-28-2022 VANCOMYCIN 13.7 ug/mL Normal [facility] Comment on above: Result Comment: .The rapeutic Ranges: Peak: All ages: 30.0-40.0 ug/mL . Trough: Age <18y: 5.0-10.0 ug/mL . Age >/= 18y: 5.0-20.0 ug/mL . Vancomycin trough concentrations drawn immediately prior to the next dose at steady-state are preferred for monitoring patients treated with vancomycin. Ref.: Am J Health-Syst Pharm 66: 83-98, 2008. Performed By: #### C MP #### [facility] [address] [address] ANCA-ASSOCIATED VASCULITIS P ROFILE [ANCA,MPO,PR3]on 10-27-2022 Myeloperoxidase Ab Qn (S) 0 AU/mL 0-19 [facility] Wilfrid [place] Work Phone: Comment on above: INTERPRETIVE INFORMA TION: Myeloperoxidase Abs, IgG 19 AU/mL or Less ......... Negative 20-25 AU/mL .............. Equivocal 26 AU/mL or Greater ...... PositiveApproximately 90% of patients with a P-ANCA pattern by IFA have antibodies specific for MPO. Proteinase 3 Ab Qn (S) 0 AU/mL 0-19 [facility] Work [facility]: Comment on above: INTERPRETIVE INFORMA TION: Serine Proteinase 3, IgG 19 AU/mL or Less ........ Negative 20-25 AU/mL ............. Equivocal 26 AU/mL or Greater ..... PositiveApproximately 85% of patients with a C-ANCA pattern by IFA have antibodies specific for PR3. ANCA-ASSOCIATED VASCULITIS PROFILE [ANCA,MPO,PR3] Not detected See Below [facility] Wilfrid Giang Work Phone: Comment on above: Reference Range: Non e DetectedINTERPRETIVE INFORMATION: ANCA IFA Pattern Neutrophil Cytoplasmic Antibodies (C-ANCA = granular cytoplasmic staining, P-ANCA = perinuclear staining) are found in the serum of over 90 percent of patients with certain necrotizing systemic vasculitides, and usually in less than 5 percent of patients with collagen vascular disease or arthritis.Performed By: [employer] [place] [id number] Director: Kyle Hyatt MD, PhD ANCA-ASSOCIATED VASCULITIS PROFILE [ANCA,MPO,PR3] <1:20 <1:20 [facility] Wilfrid Giang Work Phone: CBC AND DIFFERENTIALon 10-27 % AUTOMATED IMMATURE GRAN 0.7 % Normal 0.0 - 0.9 [facility] Comment on above: Result Comment: Iram ture Granulocyte Count (IG) includes promyelocytes, myelocytes and metamyelocytes but does not include bands. Percent differential counts (%) should be interpreted in the context of the absolute cell counts (cells/L). Performed By: #### U A #### [facility] [address] [place] [address] Basophils (Bld) [#/Vol] 0.05 10*3/uL Normal 0.00 - 0.[address] [facility] Comment on above: Performed By: #### U A #### [facility] [address] [place] [address] Basophils/100 WBC (Bld) 0.5 % Normal 0.0 - 2.0 U [facility] Comment on above: Performed By: #### U A #### [facility] [address] [place] [address] Eosinophils (Bld) [#/Vol] 0.99 10*3/uL High 0.00 - 0.70 [facility] Comment on above: Performed By: #### U A #### [facility] [address] [place] [address] Eosinophils/100 WBC (Bld) 10.6 % Normal 0.0 - 6.0 [facility] Comment on above: Performed By: #### U A #### [facility] [address] [place] [address] Erythrocyte distribution width (RBC) [Ratio] 13.3 % Normal 11.5 - 14.5 [facility] Comment on above: Performed By: #### U A #### [facility] [address] [place] [address] Hematocrit (Bld) [Volume fraction] 35.9 % Low 36.0 - 46.0 [facility] Comment on above: Performed By: #### U A #### [facility] [address] [place] [address] Hemoglobin (Bld) [Mass/Vol] 11.7 g/dL Low 12.0 - 16.0 [facility] Comment on above: Performed By: #### U A #### [place] [id number] [place] [address] Lymphocytes (Bld) [#/Vol] 1.29 10*3/uL Normal 1.20 - 4.80 [facility] Comment on above: Performed By: #### U A #### [facility] [address] [place] [address] Lymphocytes/100 WBC (Bld) 13.8 % Normal 13.0 - 44.0 [facility] Comment on above: Performed By: #### U A #### [facility] [address] [place] [address] MCHC (RBC) [Mass/Vol] 32.6 g/dL Normal 32.0 - 36.0 [facility] Comment on above: Performed By: #### U A #### [facility] [address] [place] [address] MCV (RBC) [Entitic vol] 82 fL Normal 80 - 100 U [facility] Comment on above: Performed By: #### U A #### [facility] [address] [place] [address] Monocytes (Bld) [#/Vol] 1.18 10*3/uL High 0.10 - 1.[address] [facility] Comment on above: Performed By: #### U A #### [facility] [address] [place] [address] Monocytes/100 WBC (Bld) 12.6 % Normal 2.0 - 10.0 [facility] Comment on above: Performed By: #### U A #### [facility] [address] [place] [address] Neutrophils (Bld) [#/Vol] 5.78 10*3/uL Normal 1.20 - 7.70 [facility] Comment on above: Performed By: #### U A #### [facility] [address] [place] [address] Neutrophils/100 WBC (Bld) 61.8 % Normal 40.0 - 80.0 [facility] Comment on above: Performed By: #### U A #### [facility] [address] [place] [address] NUCLEATED RBC 0.0 /100 WBC Normal 0.0-0.0 [facility] Comment on above: Performed By: #### U A #### [facility] [address] [place] [address] Platelets (Bld) [#/Vol] 318 10*3/uL Normal 150 - 450 [facility] Comment on above: Performed By: #### U A #### [facility] [address] [place] [address] RBC 4.40 x10E12/L Normal 4.00 - 5.20 [facility] Comment on above: Performed By: #### U A #### [facility] [address] [place] [address] WBC (Bld) [#/Vol] 9.4 10*3/uL Normal 4.4 - 11.3 [facility] Comment on above: Performed By: #### U A #### [facility] [address] [place] [address] COMPREHENSIVE PANELon 2022 Albumin [Mass/Vol] 3.5 g/dL Normal 3.4 - 5.0 [facility] Comment on above: Performed By: #### U A #### [facility] [address] [place] [address] ALP [Catalytic activity/Vol] 109 U/L Normal 33 - 110 [facility] Comment on above: Performed By: #### U A #### [facility] [address] [place] [address] ALT [Catalytic activity/Vol] 20 U/L Normal 7 - 45 [facility] Comment on above: Result Comment: Gretta ents treated with Sulfasalazine may generate falsely decreased results for ALT. Performed By: #### U A #### [facility] [address] [place] [address] Anion gap [Moles/Vol] 15 mmol/L Normal 10 - 20 [facility] Comment on above: Performed By: #### U A #### [facility] [address] [place] [address] AST [Catalytic activity/Vol] 20 U/L Normal 9 - 39 [facility] Comment on above: Performed By: #### U A #### [facility] [address] [place] [address] Bilirubin [Mass/Vol] 0.3 mg/dL Normal 0.0 - 1.2 [facility] Comment on above: Performed By: #### U A #### [facility] [address] [place] [address] Calcium [Mass/Vol] 9.2 mg/dL Normal 8.6 - 10.6 [facility] Comment on above: Performed By: #### U A #### [facility] [address] [place] [address] Chloride [Moles/Vol] 102 mmol/L Normal 98 - 107 [facility] Comment on above: Performed By: #### U A #### [facility] [address] [place] [address] Creatinine [Mass/Vol] 1.53 mg/dL High 0.50 - 1.05 [facility] Comment on above: Performed By: #### U A #### [facility] [address] [place] [address] GFR/1.73 sq M.predicted among non-blacks MDRD (S/P/Bld) [Vol rate/Area] 39 mL/min/{1.73_m2} Abnormal >90 [facility] Comment on above: Result Comment: CALC ULATIONS OF ESTIMATED GFR ARE PERFORMED USING THE 2020 CKD-EPI STUDY REFIT EQUATION WITHOUT THE RACE VARIABLE FOR THE IDMS-TRACEABLE CREATININE METHODS. https://jasn.asnjournals.org/content/early//ASN.2020 302633 Performed By: #### U A #### [facility] [address] [place] [address] Glucose [Mass/Vol] 91 mg/dL Normal 74 - 99 [facility] Comment on above: Performed By: #### U A #### [facility] [address] [place] [address] HCO3 (Bld) [Moles/Vol] 24 mmol/L Normal 21 - 32 [facility] Comment on above: Performed By: #### U A #### [facility] [address] [place] [address] Potassium [Moles/Vol] 4.4 mmol/L Normal 3.5 - 5.3 [facility] Comment on above: Performed By: #### U A #### [facility] [address] [place] [address] Protein [Mass/Vol] 6.6 g/dL Normal 6.4 - 8.2 [facility] Comment on above: Performed By: #### U A #### [facility] [address] [place] [address] Sodium [Moles/Vol] 137 mmol/L Normal 136 - 145 [facility] Comment on above: Performed By: #### U A #### [facility] [address] [place] [address] Urea nitrogen [Mass/Vol] 12 mg/dL Normal 6 - 23 [facility] Comment on above: Performed By: #### U A #### [facility] [address] [place] [address] Complete Blood Count + Diffe yamil 10-27-2022 Basophils/100 WBC (Bld) 0.5 % 0.0 - 2.0 M [employer] Work Phone: [phone] Erythrocyte distribution width (RBC) [Ratio] 13.3 % See Below LO[employer] Wilfird Giang Work Phone: [phone] Comment on above: Reference Range: 11. 5 - 14.5 Hematocrit (Bld) [Volume fraction] 35.9 % below low threshold See Below [employer] Wilfrid Giang Work Phone: [phone] Comment on above: Reference Range: 36. 0 - 46.0 Hemoglobin (Bld) [Mass/Vol] 11.7 g/dL below low threshold See Below [employer] Wilfrid Giang Work Phone: [phone] Comment on above: Reference Range: 12. 0 - 16.0 Lymphocytes/100 WBC (Bld) 13.8 % See Below [employer] Wilfrid Giang Work Phone: [phone] Comment on above: Reference Range: 13. 0 - 44.0 MCHC (RBC) [Mass/Vol] 32.6 g/dL See Below [employer] Wilfrid Giang Work Phone: [phone] Comment on above: Reference Range: 32. 0 - 36.0 MCV (RBC) [Entitic vol] 82 fL 80 - 100 M [employer] Wilfrid Giang Work Phone: [phone] Monocytes/100 WBC (Bld) 12.6 % 2.0 - 10.0 M [employer] Wilfrid Giang Work Phone: [phone] Neutrophils/100 WBC (Bld) 61.8 % See Below LO[employer] Wilfrid Giang Work Phone: [phone] Comment on above: Reference Range: 40. 0 - 80.0 Platelets (Bld) [#/Vol] 318 10*3/uL 150 - 450 [employer] Giang Work Phone: [phone] RBC (Bld) [#/Vol] 4.40 {x10E12/L} See Below MG -MedicineSierra Giang Work Phone: Comment on above: Reference Range: 4.0 0 - 5.20 WBC (Bld) [#/Vol] 9.4 10*3/uL 4.4 - 11.3 [facility] rigoberto Giang Work Phone: Complete Blood Count + Differential 0.05 {x10E9/L} See Below -Ulices Giang Work Phone: Comment on above: Reference Range: 0.0 0 - 0.10 Complete Blood Count + Differential 0.99 {x10E9/L} above high threshold See Below Jerod Giang Work Phone: Comment on above: Reference Range: 0.0 0 - 0.70 Complete Blood Count + Differential 1.18 {x10E9/L} above high threshold See Below -Ulices Giang Work Phone: Comment on above: Reference Range: 0.1 0 - 1.00 Complete Blood Count + Differential 1.29 {x10E9/L} See Below Jerod Giang Work Phone: Comment on above: Reference Range: 1.2 0 - 4.80 Complete Blood Count + Differential 5.78 {x10E9/L} See Below Jerod Giang Work Phone: [...] Blood Count + Differential 0.0 {/100_WBC} 0.0-0.0 -Ulices Giang Work Phone: Daily Progress Note-Infectio us [...] improved. Objective Data: Objective Information: T PRBPMAPSpO2 [id number]/7893% Date/Time10/27 14: 14: 14: 14: 14:12 Range(36.2C [...] OSH. First full day of therapy at [facility] was on 10/21. MRSA swab collected here today. Would continue to treat w/ PO amox-clav once ready for d/c. If MRSA swab is positive, can transition or change to TMP-SMX. #CHUY Baseline <1, Cr 1.5. Could be combination of vanc and pip-tazo; Cr currently stab (more content not included)... Normal [facility] Daily Progress Note-Medicine on 10-27-2022 [...] lid. Objective Data: Objective Information: T PRBPMAPSpO2 [id number]/8297% Date/Time10/27 4: 4: 4: 4: 4:29 Range(36.3C [...] that it started the day she left [facility]. C. diff work up at [facility] came back negative - Likely due to Abx - Started on Immodium as needed - Will consider C diff PCR if diarrhea continues (more content not included)... Normal [facility] Daily Progress Note-Ophthalm ologyon 10-27-2022 Daily Progress Note-Ophthalmology Service: Ophthalmology Subjective Data: GRACIE BANUELOS is a 57 year old Female who is Hospital Day # 5. Objective Data: Objective Information: T PRBPMAPSpO2 [id number]/8297% Date/Time10/27 4: 4: 4: 4: 4:29 Range(36.3C [...] progressed. On 10/19/22 she presented to the [place] [facility] and CT orbits showed findings concerning for right orbital cellulitis. WBC was reportedly 13.9, ESR 75, and CRP 42.6. She was prescribed clindamycin to take at home, but her pain only worsened and she presented to [facility] on 10/20/22 for further management. MRI orbits [...] CT Orbit Sella Inner, by report from [facility] shows: 1. Marked abnormality of the soft [...] orbit. 5. (more content not included)... Normal [facility] EMR ADDONon 10-27-2022 ADDON CONFIRMATION REQUEST REC'D Normal [facility] Comment on above: Performed By: #### U A #### [facility] [address] [place] [address] GLUCOSE-POCTon 10-27-2022 Glucose [Mass/Vol] 100 mg/dL High 74 - 99 [facility] Comment on above: Performed By: #### U A #### [facility] [address] [place] [address] Laboratory - Chemistry and C hemistry - challengeon 10-27-2022 Potassium (U) [Moles/Vol] 6 mmol/L See Below [facility] Wilfrid Giang Work Phone: Comment on above: Reference Range: Not Established Potassium/Creatinine (U) [Molar ratio] 22 {mmol/g_Creat} See Below [facility] Work Phone: Comment on above: Reference Range: Not Established Sodium (U) [Moles/Vol] 18 mmol/L See Below [facility] Work Phone: Comment on above: Reference Range: Not Established Sodium/Creatinine (U) [Ratio] 67 {mmol/g_Creat} See Below [facility] Work Phone: Comment on above: Reference Range: Not Established Glucose [Mass/Vol] 100 mg/dL above high threshold 74 - 99 [facility] Work Phone: Albumin BCP dye [Mass/Vol] 3.5 g/dL 3.4 - 5.0 [facility] Work Phone: ALP [Catalytic activity/Vol] 109 U/L 33 - 110 [facility] Work Phone: ALT With P-5'-P [Catalytic activity/Vol] 20 U/L 7 - 45 [facility] Work Phone: Comment on above: Patients treated wit h Sulfasalazine may generate falsely decreased results for ALT. Anion gap [Moles/Vol] 15 mmol/L 10 - 20 [facility] Work Phone: AST With P-5'-P [Catalytic activity/Vol] 20 U/L 9 - 39 [facility] Work Phone: [phone] Bilirubin [Mass/Vol] 0.3 mg/dL 0.0 - 1.2 [facility] Work Phone: [phone] Calcium [Mass/Vol] 9.2 mg/dL 8.6 - 10.6 [facility] rigoberto Giang Work Phone: Chloride [Moles/Vol] 102 mmol/L 98 - 107 [facility] edicineSierra Giang Work Phone: CO2 [Moles/Vol] 24 mmol/L 21 - 32 [facility] neSierra Giang Work Phone: Creatinine [Mass/Vol] 1.53 mg/dL above high threshold See Below [facility]Ulices [facility] Work Phone: Comment on above: Reference Range: 0.5 0 - 1.05 Glucose [Mass/Vol] 91 mg/dL 74 - 99 [facility] rigoberto Giang Work Phone: Potassium [Moles/Vol] 4.4 mmol/L 3.5 - 5.3 JUAN Giang Work Phone: Protein [Mass/Vol] 6.6 g/dL 6.4 - 8.2 [facility] rigoberto Giang Work Phone: Sodium [Moles/Vol] 137 mmol/L 136 - 145 [facility] rigoberto Giang Work Phone: Urea nitrogen [Mass/Vol] 12 mg/dL 6 - 23 [facility] Work Phone: MRSA Screenon 10-27-2022 Staphylococcus sp identified Org specific cx Nom (Unsp spec) MGNathalie Giang Work Phone: No Panel Informationon 10-27 39 {mL/min/1.73m2} Abnormal >90 [facility] rigoberto Giang Work Phone: Comment on above: CALCULATIONS OF PAVAN MATED GFR ARE PERFORMED USING THE 2020 CKD-EPI STUDY REFIT EQUATION WITHOUT THE RACE VARIABLE FOR THE IDMS-TRACEABLE CREATININE METHODS.https://jasn.asnjournals.org/content// ASN.2537491109 POTASSIUM, URINE SPOTon 09-30 POT/CREAT RATIO 22 mmol/g Creat Normal Not Established [facility] Comment on above: Performed By: #### U A #### [facility] [address] [place] [address] POTASSIUM,URINE SPOT 6 mmol/L Normal Not Established [facility] Comment on above: Performed By: #### U A #### [facility] [address] [place] [address] SODIUM, URINE SPOTon 023 CREATININE,URINE 27.0 mg/dL Normal 20.0 - 320.0 [facility] Comment on above: Performed By: #### C MP #### [facility] [address] [place] [address] Performed By: #### U A #### [facility] [address] [place] [address] Sodium (U) [Moles/Vol] 18 mmol/L Normal Not Established [facility] Comment on above: Performed By: #### C MP #### [facility] [address] [place] [address] SODIUM/CREAT RATIO 67 mmol/g Creat Normal Not Established [facility] Comment on above: Performed By: #### C MP #### [facility] [address] [place] [address] STAPH/MRSA SCREENon 10-27-19 STAPH/MRSA SCREEN PATIENT: FERNIE BANUELOS LOCATION: [place] [address] BILL#: [id number] : 61 AGE: SEX: F ORDERED BY: JUSTYN RICHTER SOURCE: ANTERIOR NARES COLLECTED: 10/27/22 15:12 ANTIBIOTICS AT DEB.: RECEIVED : 10/27/22 17:38 SITE: Nares R E S U L T S STAPH/MRSA SCREEN FINAL 10/29/22 11:04 NO Staphylococcus aureus ISOLATED. Normal [facility] Comment on above: Performed By: #### S TAPH #### [facility] [address] [place] [address] T-SPOT TBon 10-27-2022 NIL[NEG]CONTROL SPOT COUNT Passed Normal [facility] Comment on above: Performed By: #### V ANCU #### [facility] [address] [place] [address] PANEL A SPOT COUNT 0 Normal [facility] Comment on above: Performed By: #### V ANCU #### [facility] [address] [place] [address] PANEL B SPOT COUNT 0 Normal [facility] Comment on above: Performed By: #### V ANCU #### [facility] [address] [place] [address] POS CONTROL SPOT COUNT Passed Normal [facility] Comment on above: Performed By: #### V ANCU #### [facility] [address] [place] [address] T-SPOT.TB INTERP Negative Normal Normal Value: Negative [facility] Comment on above: Result Comment: [...] test. Performed By: #### V ANCU #### [facility] [address] [place] [address] TOTAL PROTEIN, URINE SPOTon 10-27-2022 T. PROTEIN/CREAT RATIO 0.19 mg/mg Creat High 0.00 - 0.17 [facility] Comment on above: Performed By: #### C MP #### [facility] [address] [place] [address] TOTAL PROT,URINE SPOT 5 mg/dL Normal 5 - 24 [facility] Comment on above: Performed By: #### C MP #### [facility] [address] [place] [address] Telephone Encounteron 2022 [employer] Authentication Interface Message Text Ynes from called requesting a 2 week follow appointment for this pt. Pt is being discharged today for eye pain. Pt was recently seen on 10/22/2022. Where should I schedule this pt ? Thank you Sarah Conde Normal [employer] Total Protein, Urine Spoton 10-27-2022 Creatinine (U) [Mass/Vol] 27.0 mg/dL See Below [employer] Work Phone: Comment on above: Reference Range: 20. 0 - 320.0 Protein (U) [Mass/Vol] 5 mg/dL 5 - 24 [employer] Work Phone: Protein/Creatinine (U) [Ratio] 0.19 {mg/mg_Creat} above high threshold See Below [employer] Work Phone: Comment on above: Reference Range: 0.0 0 - 0.17 URINALYSISon 10-27-2022 Appearance (U) CLEAR Normal CLEAR [facility] Comment on above: Performed By: #### U A #### [facility] [address] [place] [address] Bilirubin Ql (U) Negative Normal NEGATIVE [facility] Comment on above: Performed By: #### U A #### [facility] [address] [place] [address] Color (U) STRAW Normal STRAW,YELLOW [facility] Comment on above: Performed By: #### U A #### [facility] [address] [place] [address] Glucose Ql (U) 50 (TRACE) Abnormal NEGATIVE [facility] Comment on above: Performed By: #### U A #### [facility] [address] [place] [address] Hemoglobin Ql (U) Negative Normal NEGATIVE [facility] Comment on above: Performed By: #### U A #### [facility] [address] [place] [address] Ketones Ql (U) Negative Normal NEGATIVE [facility] Comment on above: Performed By: #### U A #### [facility] [address] [place] [address] Leukocyte esterase Test strip Ql (U) Negative Normal NEGATIVE [facility] Comment on above: Performed By: #### U A #### [facility] [address] [place] [address] Nitrite Ql (U) Negative Normal NEGATIVE [facility] Comment on above: Performed By: #### U A #### [facility] [address] [place] [address] pH (U) 6.0 [pH] Normal 5.0 - 8.0 [facility] Comment on above: Performed By: #### U A #### [facility] [address] [place] [address] Protein Ql (U) Negative Normal NEGATIVE [facility] Comment on above: Performed By: #### U A #### [facility] [address] [place] [address] Specific gravity (U) [Rel density] 1.006 Normal 1.005 - 1.035 [facility] Comment on above: Performed By: #### U A #### [facility] [address] [place] [address] Urobilinogen (U) [Mass/Vol] mg/dL Normal 0.0 - 1.9 [facility] Comment on above: Performed By: #### U A #### [facility] [address] [place] [address] Urinalysison 10-27-2022 Color (U) STRAW See Below [facility] Wilfrid Giang Work Phone: Comment on above: Reference Range: STR AW,YELLOW Glucose Ql (U) 50 (TRACE) Abnormal NEGATIVE [facility] Wilfrid Giang Work Phone: Ketones Ql (U) Negative NEGATIVE [facility] Wilfrid Giang Work Phone: Leukocyte esterase Test strip Ql (U) Negative NEGATIVE [facility] Work Phone: pH (U) 6.0 [pH] 5.0 - 8.0 [facility] Work Phone: [phone] Protein (U) [Mass/Vol] Negative NEGATIVE [facility] Work Phone: [phone] RBC (U) [#/Vol] Negative NEGATIVE [facility] ne- Wilfrid Giang Work Phone: [phone] Specific gravity (U) [Rel density] 1.006 1 See Below Jerod Giang Work Phone: Comment on above: Reference Range: 1.0 05 - 1.035 Urinalysis Negative NEGATIVE [facility]Ulices [facility] Work Phone: Urinalysis <2.0 0.0 - 1.9 Jerod [facility] Work Phone: Urinalysis CLEAR CLEAR Jerod Giang Work Phone: [phone] Vancomycin Level, Randomon 0 10-27-2022 Vancomycin [Mass/Vol] 13.7 ug/mL JUAN Giang Work Phone: Comment on above: .Therapeutic Ranges: Peak: All ages: 30.0-40.0 ug/mL. Trough: Age <18y: 5.0-10.0 ug/mL. Age >/= 18y: 5.0-20.0 ug/mL. Vancomycin trough concentrations drawn immediately prior to the next dose at steady-state are preferred for monitoring patients treated with vancomycin. Ref.: Am J Health-Syst Pharm 66: 83-98, 2009. ANGIOTENSIN CONV ENZYMEon ANGIOTENSIN CONV ENZYME <10 Low 16-85 [facility] Comment on above: Result Comment: Perf ormed By: [employer] [address] [place] [id number] Hyperbaric Technologist: Kyle Hyatt MD, PhD Performed By: #### U A #### [facility] [address] [place] [address] Daily Progress Note-Medicine on 10-26-2022 Daily Progress [...] diarrhea. Objective Data: Objective Information: T PRBPMAPSpO2 [id number]/9594% Date/Time10/26 3: 3: 3: 3: 3:37 Range(36.3C [...] on antibiotics. (more content not included)... Normal [facility] Daily Progress Note-Ophthalm ologyon 10-26-2022 Daily Progress Note-Ophthalmology Service: Ophthalmology Subjective Data: GRACIE BANUELOS is a 57 year old Female who is Hospital Day # 4. Objective Data: Objective Information: T PRBPMAPSpO2 [id number]/7694% Date/Time10/26 3: 12: 12: 12: 3:37 Range(36.3C [...] progressed. On 10/19/22 she presented to the [place] [facility] Department and CT orbits showed findings concerning for right orbital cellulitis. WBC was reportedly 13.9, ESR 75, and CRP 42.6. She was prescribed clindamycin to take at home, but her pain only worsened and she presented to [facility] on 10/20/22 for further management. MRI orbits [...] CT Orbit Sella Inner, by report from [facility] shows: 1. Marked abnormality of the soft [...] which I personally reviewed, by report from [employer] shows Abnormal infiltration throughout the right retroan (more content not included)... Normal [facility] RENAL FUNCTION PANELon 10-26 Albumin [Mass/Vol] 3.9 g/dL Normal 3.4 - 5.0 [facility] Comment on above: Performed By: #### U A #### [facility] [address] [place] [address] Anion gap [Moles/Vol] 14 mmol/L Normal 10 - 20 [facility] Comment on above: Performed By: #### U A #### [facility] [address] [place] [address] Calcium [Mass/Vol] 9.2 mg/dL Normal 8.6 - 10.6 [facility] Comment on above: Performed By: #### U A #### [facility] [address] [place] [address] Chloride [Moles/Vol] 102 mmol/L Normal 98 - 107 [facility] Comment on above: Performed By: #### U A #### [facility] [address] [place] [address] Creatinine [Mass/Vol] 1.57 mg/dL High 0.50 - 1.05 [facility] Comment on above: Performed By: #### U A #### [facility] [address] [place] [address] GFR/1.73 sq M.predicted among non-blacks MDRD (S/P/Bld) [Vol rate/Area] 38 mL/min/{1.73_m2} Abnormal >90 [facility] Comment on above: Result Comment: CALC ULATIONS OF ESTIMATED GFR ARE PERFORMED USING THE 2020 CKD-EPI STUDY REFIT EQUATION WITHOUT THE RACE VARIABLE FOR THE IDMS-TRACEABLE CREATININE METHODS. https://jasn.asnjournals.org/content//ASN.2020 317550 Performed By: #### U A #### [facility] [address] [place] [address] Glucose [Mass/Vol] 124 mg/dL High 74 - 99 [facility] Comment on above: Performed By: #### U A #### [facility] [address] [place] [address] HCO3 (Bld) [Moles/Vol] 24 mmol/L Normal 21 - 32 [facility] Comment on above: Performed By: #### U A #### [facility] [address] [place] [address] Phosphate [Mass/Vol] 5.3 mg/dL High 2.5 - 4.9 [facility] Comment on above: Result Comment: The performance characteristics of phosphorus testing in heparinized plasma have been validated by the individual laboratory site where testing is performed. Testing on heparinized plasma is not approved by the FDA; however, such approval is not necessary. Performed By: #### U A #### [facility] [address] [place] [address] Potassium [Moles/Vol] 4.1 mmol/L Normal 3.5 - 5.3 [facility] Comment on above: Performed By: #### U A #### [facility] [address] [place] [address] Sodium [Moles/Vol] 136 mmol/L Normal 136 - 145 [facility] Comment on above: Performed By: #### U A #### [facility] [address] [place] [address] Urea nitrogen [Mass/Vol] 15 mg/dL Normal 6 - 23 [facility] Comment on above: Performed By: #### U A #### [facility] [address] [place] [address] Renal Function Panelon 10-26 Albumin BCP dye [Mass/Vol] 3.9 g/dL 3.4 - 5.0 [facility] Work Phone: Anion gap [Moles/Vol] 14 mmol/L 10 - 20 [facility] U[facility] Work Phone: Calcium [Mass/Vol] 9.2 mg/dL 8.6 - 10.6 [facility] icineSierra Giang Work Phone: [phone] Chloride [Moles/Vol] 102 mmol/L 98 - 107 [facility] Wilfrid Giang Work Phone: [phone] CO2 [Moles/Vol] 24 mmol/L 21 - 32 [facility] neSierra Giang Work Phone: [phone] Creatinine [Mass/Vol] 1.57 mg/dL above high threshold See Below [facility] Work Phone: [phone] Comment on above: Reference Range: 0.5 0 - 1.05 Glucose [Mass/Vol] 124 mg/dL above high threshold 74 - 99 [facility] Work Phone: [phone] Phosphate [Mass/Vol] 5.3 mg/dL above high threshold 2.5 - 4.9 [facility] Work Phone: [phone] Comment on above: The performance bruce acteristics of phosphorus testing in heparinized plasma have been validated by the individual laboratory site where testing is performed. Testing on heparinized plasma is not approved by the FDA; however, such approval is not necessary. Potassium [Moles/Vol] 4.1 mmol/L 3.5 - 5.3 [facility] Work Phone: [phone] Sodium [Moles/Vol] 136 mmol/L 136 - 145 [facility] rigoberto Giang Work Phone: [phone] Urea nitrogen [Mass/Vol] 15 mg/dL 6 - 23 [facility] Work Phone: [phone] Renal Function Panel 38 {mL/min/1.73m2} Abnormal >90 [facility] Work Phone: [phone] Comment on above: CALCULATIONS OF PAVAN MATED GFR ARE PERFORMED USING THE 2020 CKD-EPI STUDY REFIT EQUATION WITHOUT THE RACE VARIABLE FOR THE IDMS-TRACEABLE CREATININE METHODS.https://jasn.asnjournals.org/content/early/ ASN.1432048232 VANCOMYCINon 10-26-2022 VANCOMYCIN 14.6 ug/mL Normal [facility] Comment on above: Result Comment: .The rapeutic Ranges: Peak: All ages: 30.0-40.0 ug/mL . Trough: Age <18y: 5.0-10.0 ug/mL . Age >/= 18y: 5.0-20.0 ug/mL . Vancomycin trough concentrations drawn immediately prior to the next dose at steady-state are preferred for monitoring patients treated with vancomycin. Ref.: Am J Health-Syst Pharm 66: 83-98, 2008. Performed By: #### V ANCU #### [facility] [address] [place] [address] Vancomycin Level, Randomon 0 10-26-2022 Vancomycin [Mass/Vol] 14.6 ug/mL - [employer] Work Phone: Comment on above: .Therapeutic Ranges: [...] [Catalytic activity/Vol] U/L below low threshold 16-85 [facility] [facility] Work Phone: Comment on above: Performed By: RAJENDRA [address] [place] [id number] Director: Kyle Hyatt MD, PhD CBCon 10-25-2022 Erythrocyte distribution width (RBC) [Ratio] 13.3 % Normal 11.5 - 14.5 [facility] Comment on above: Performed By: #### V ANCU #### [facility] [address] [place] [address] Hematocrit (Bld) [Volume fraction] 34.5 % Low 36.0 - 46.0 [facility] Comment on above: Performed By: #### V ANCU #### [facility] [address] [place] [address] Hemoglobin (Bld) [Mass/Vol] 11.5 g/dL Low 12.0 - 16.0 [facility] Comment on above: Performed By: #### V ANCU #### [facility] [address] [place] [address] MCHC (RBC) [Mass/Vol] 33.3 g/dL Normal 32.0 - 36.0 [facility] Comment on above: Performed By: #### V ANCU #### [facility] [address] [place] [address] MCV (RBC) [Entitic vol] 82 fL Normal 80 - 100 [facility] Comment on above: Performed By: #### V ANCU #### [facility] [address] [place] [address] NUCLEATED RBC 0.0 /100 WBC Normal 0.0-0.0 [facility] Comment on above: Performed By: #### V ANCU #### [facility] [address] [place] [address] Platelets (Bld) [#/Vol] 306 10*3/uL Normal 150 - 450 [facility] Comment on above: Performed By: #### V ANCU #### [facility] [address] [place] [address] RBC 4.23 x10E12/L Normal 4.00 - 5.20 [facility] Comment on above: Performed By: #### V ANCU #### [facility] [address] [place] [address] WBC (Bld) [#/Vol] 10.1 10*3/uL Normal 4.4 - 11.3 [facility] Comment on above: Performed By: #### V ANCU #### [facility] [address] [place] [address] Daily Progress Note-Medicine on 10-25-2022 Daily Progress Note-Medicine Service: Medicine Subjective Data: GRACIE BANUELOS is a 57 year old Female who is Hospital Day # 3. No overnight events. Pt states the swelling in her right eye is better. She endorses at least 3 episodes of diarrhea a day since she came here. Objective Data: Objective Information: T PRBPMAPSpO2 [id number]/6893% Date/Time10/25 6: 6: 6: 6: 6:08 Range(36C [...] that it started the day she left [facility]. C. diff work up at [facility] came back negative - Likely due to Abx - Started on Immodium as needed - Will consider C diff PC (more content not included)... Normal [facility] Daily Progress Note-Ophthalm ologyon 10-25-2022 Daily Progress Note-Ophthalmology Service: Ophthalmology Subjective Data: GRACIE BANUELOS is a 57 year old Female who is Hospital Day # 3. Objective Data: Objective Information: T PRBPMAPSpO2 [id number]/6893% Date/Time10/25 6: 6: 6: 6: 6:08 Range(36C [...] progressed. On 10/19/22 she presented to the [place] [facility] and CT orbits showed findings concerning for right orbital cellulitis. WBC was reportedly 13.9, ESR 75, and CRP 42.6. She was prescribed clindamycin to take at home, but her pain only worsened and she presented to [facility] on 10/20/22 for further management. MRI orbits [...] CT Orbit Sella Inner, by report from [employer] shows: 1. Marked abnormality of the soft [...] which I personally reviewed, by report from [employer] shows Abnormal infiltration throughout the right retroantral and extraconal fat as well as the pterygopalatine fo (more content not included)... Normal [facility] Laboratory - Hematology and Cell countson 10-25-2022 Erythrocyte distribution width (RBC) [Ratio] 13.3 % See Below -Medicine- Wilfrid Giang Work Phone: Comment on above: Reference Range: 11. 5 - 14.5 Hematocrit (Bld) [Volume fraction] 34.5 % below low threshold See Below AvidbotsUlices Giang Work Phone: Comment on above: Reference Range: 36. 0 - 46.0 Hemoglobin (Bld) [Mass/Vol] 11.5 g/dL below low threshold See Below [employer]lic[employer] Giang Work Phone: Comment on above: Reference Range: 12. 0 - 16.0 MCHC (RBC) [Mass/Vol] 33.3 g/dL See Below [employer] Ulices Giang Work Phone: Comment on above: Reference Range: 32. 0 - 36.0 MCV (RBC) [Entitic vol] 82 fL 80 - 100 M Kusum Giang Work Phone: Platelets (Bld) [#/Vol] 306 10*3/uL 150 - 450 Jerod Giang Work Phone: RBC (Bld) [#/Vol] 4.23 {x10E12/L} See Below [employer]ots[employer]lices Giang Work Phone: Comment on above: Reference Range: 4.0 0 - 5.20 WBC (Bld) [#/Vol] 10.1 10*3/uL 4.4 - 11.3 Lars Giang Work Phone: Laboratory - Microbiology an d Antimicrobial susceptibilityOrdered By: Dr. Dykes on 10-25-2022 Bacteria identified Cx Nom (Bld) No growth in 5 days. [facility] Lysozyme, Serumon 10-25-2022 Lysozyme [Mass/Vol] 9.0 [...] No Panel Informationon 10-25 0.0 {/100_WBC} 0.0-0.0 MG-Medicbunny cherryiSerra Wilfrid Giang Work Phone: RENAL FUNCTION PANELon 10-25 Albumin [Mass/Vol] 3.3 g/dL Low 3.4 - 5.0 [facility] Comment on above: Performed By: #### U A #### [place] [address] [place] [address] Anion gap [Moles/Vol] 13 mmol/L Normal 10 - 20 [facility] Comment on above: Performed By: #### U A #### [facility] [address] [place] [address] Calcium [Mass/Vol] 9.0 mg/dL Normal 8.6 - 10.6 [facility] Comment on above: Performed By: #### U A #### [facility] [address] [place] [address] Chloride [Moles/Vol] 101 mmol/L Normal 98 - 107 [facility] Comment on above: Performed By: #### U A #### [facility] [address] [place] [address] Creatinine [Mass/Vol] 1.09 mg/dL High 0.50 - 1.05 [facility] Comment on above: Performed By: #### U A #### [facility] [address] [place] [address] GFR/1.73 sq M.predicted among non-blacks MDRD (S/P/Bld) [Vol rate/Area] 58 mL/min/{1.73_m2} Abnormal >90 [facility] Comment on above: Result Comment: CALC ULATIONS OF ESTIMATED GFR ARE PERFORMED USING THE 2020 CKD-EPI STUDY REFIT EQUATION WITHOUT THE RACE VARIABLE FOR THE IDMS-TRACEABLE CREATININE METHODS. https://jasn.asnjournals.org/content/early/ 439721 Performed By: #### U A #### [facility] [address] [place] [address] Glucose [Mass/Vol] 104 mg/dL High 74 - 99 [facility] Comment on above: Performed By: #### U A #### [facility] [address] [place] [address] HCO3 (Bld) [Moles/Vol] 25 mmol/L Normal 21 - 32 [facility] Comment on above: Performed By: #### U A #### [facility] [address] [place] [address] Phosphate [Mass/Vol] 4.3 mg/dL Normal 2.5 - 4.9 [facility] Comment on above: Result Comment: The performance characteristics of phosphorus testing in heparinized plasma have been validated by the individual laboratory site where testing is performed. Testing on heparinized plasma is not approved by the FDA; however, such approval is not necessary. Performed By: #### U A #### [facility] [address] [place] [address] Potassium [Moles/Vol] 3.7 mmol/L Normal 3.5 - 5.3 [facility] Comment on above: Performed By: #### U A #### [facility] [address] [place] [address] Sodium [Moles/Vol] 135 mmol/L Low 136 - 145 [facility] Comment on above: Performed By: #### U A #### [facility] [address] [place] [address] Urea nitrogen [Mass/Vol] 10 mg/dL Normal 6 - 23 [facility] Comment on above: Performed By: #### U A #### [facility] [address] [place] [address] RPR WITH TITER SYPHILIS ESTELLA CYRon 10-25-2022 RPR MONITORING Canceled Normal [facility] Comment on above: Order Comment: TEST RPR WITH TITER SYPHILIS MONITORING WAS CANCELLED, 10/25/2022 00:46 RBS update.. Performed By: #### R PRSM #### [facility] [address] [place] [address] Lab Specimen Source Normal [facility] Comment on above: Order Comment: TEST RPR WITH TITER SYPHILIS MONITORING WAS CANCELLED, 10/25/2022 00:46 RBS update.. Performed By: #### R PRSM #### [facility] [address] [place] [address] Renal Function Panelon 10-25 Albumin BCP dye [...] mmol/L below low threshold 136 - 145 [facility] Work Phone: Urea nitrogen [Mass/Vol] 10 mg/dL 6 - 23 Jerod Giang Work Phone: Renal Function Panel 58 {mL/min/1.73m2} Abnormal >90 Ulices Giang Work Phone: Comment on above: CALCULATIONS OF PAVAN MATED GFR ARE PERFORMED USING THE 2020 CKD-EPI STUDY REFIT EQUATION WITHOUT THE RACE VARIABLE FOR THE IDMS-TRACEABLE CREATININE METHODS.https://jasn.asnjournals.org/content/early// ASN.9963175340 SYPHILIS SCREENING WITH REFL EXon 10-25-2022 SYPHILIS TOTAL AB Non-Reactive Normal NONREACTIVE [facility] Comment on above: Result Comment: No s ignificant level of Treponema pallidum antibody detected. 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 Performed By: #### U A #### [facility] [address] [place] [address] Lab Specimen Source Normal [facility] Comment on above: Performed By: #### U A #### [facility] [address] [place] [address] T. pallidum IgG+IgM IA Ql (S) Non-Reactive See Below [facility] Work Phone: Comment on above: SOURCE: Reference Ra nge: NONREACTIVENo significant level of Treponema pallidum antibody detected. 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 VANCOMYCIN,TROUGHon 10-25-19 VANCOMYCIN,TROUGH 27.0 ug/mL Critically high 5.0 - 20.0 [facility] Comment on above: Order Comment: [...] Am J Health-Syst Pharm 66: 83-98, 2008. ISABELLT CALLED TO BRANDI WAGONER, 10/25/2022 17:09 Performed By: #### A [facility] #### [employer] [address] [place] [address] Vancomycin Level, Troughon 0 10-25-2022 Vancomycin trough [Mass/Vol] 27.0 ug/mL Critically high 5.0 - 20.0 [facility]- Wilfrid Giagn Work Phone: Comment on above: Vancomycin levels sh ould be interpreted in conjunction with the dose, disease being treated, vancomycin AGNIESZKA, time of draw (trough concentrations should be obtained just before the next dose at steady-state), and other clinical information. Trough concentrations of 15-20 ug/mL are desired for severe infections. Ref.: Am J Health-Syst Pharm 66: 83-98, 2009.ISABELLT CALLED TO BRANDI WAGONER, 10/25/2022 17:09 Admission [...] AlertFor Ebola-like Symptoms: Isolate Patient and Notify Provider/Internal Communications Writer For Contact: Notify Provider/Internal Communications Writer Advance Directive: Advance Directive/DNRno Advance Directive Information [...] video; verbal instruction Cultural Considerationsnone Developmental Considerationsnone Zoroastrian Considerationsnone Learning Assessment (Other Learner): Other learner availableno Depression Screen: During the past month, have you often been bothered by feeling down, depressed or hopelessno During the past month, have you often had little interest or pleasure in doing thingsno Have you had any thoughts of harming anyone elseno [place] Suicide: Risk Screen Not Applicable/Able to Answerable to be screened In the Past Month: Have you wished you were or could go to sleep and not wake upno In the Past Month: Have you had any actual thoughts of killing yourselfno Lifetime: Have you ever done, started to do, or prepared to do anything to end your lifeno [place] Suicide Risknegative Adult Nutrition Screen: Have you [...] Spiritual Screen: Are there any cultural, spiritual, sikh practices/values/needs that are important for us to knowno CAGE: Is this an inju (more content not included)... Normal [facility] C Reactive Protein, Serumon 10-24-2022 CRP [Mass/Vol] 6.50 mg/dL Abnormal MG-Medicin sally Giang Work Phone: Comment on above: REF VALUE< 1.00 C-REACTIVE PROTEINon 023 C-REACTIVE PROTEIN 6.50 mg/dL Abnormal [facility] Comment on above: Result Comment: REF VALUE < 1.00 Performed By: #### U A #### [facility] [address] [place] [address] CBC AND DIFFERENTIALon 10-24 % AUTOMATED IMMATURE GRAN 0.5 % Normal 0.0 - 0.9 [facility] Comment on above: Result Comment: Iram ture Granulocyte Count (IG) includes promyelocytes, myelocytes and metamyelocytes but does not include bands. Percent differential counts (%) should be interpreted in the context of the absolute cell counts (cells/L). Performed By: #### C BCDF #### [facility] [address] [place] [address] Basophils (Bld) [#/Vol] 0.11 10*3/uL High 0.00 - 0.[address] [facility] Comment on above: Performed By: #### C BCDF #### [facility] [address] [place] [address] Basophils/100 WBC (Bld) 1.1 % Normal 0.0 - 2.0 U [facility] Comment on above: Performed By: #### C BCDF #### [facility] [address] [place] [address] Eosinophils (Bld) [#/Vol] 0.75 10*3/uL High 0.00 - 0.70 [facility] Comment on above: Performed By: #### C BCDF #### [facility] [address] [place] [address] Eosinophils/100 WBC (Bld) 7.2 % Normal 0.0 - 6.0 [facility] Comment on above: Performed By: #### C BCDF #### [facility] [address] [place] [address] Erythrocyte distribution width (RBC) [Ratio] 13.4 % Normal 11.5 - 14.5 [facility] Comment on above: Performed By: #### C BCDF #### [facility] [address] [place] [address] Hematocrit (Bld) [Volume fraction] 34.0 % Low 36.0 - 46.0 [facility] Comment on above: Performed By: #### C BCDF #### [facility] [address] [place] [address] Hemoglobin (Bld) [Mass/Vol] 11.4 g/dL Low 12.0 - 16.0 [facility] Comment on above: Performed By: #### C BCDF #### [facility] [address] [place] [address] Lymphocytes (Bld) [#/Vol] 1.67 10*3/uL Normal 1.20 - 4.80 [facility] Comment on above: Performed By: #### C BCDF #### [facility] [address] [place] [address] Lymphocytes/100 WBC (Bld) 16.0 % Normal 13.0 - 44.0 [facility] Comment on above: Performed By: #### C BCDF #### [facility] [address] [place] [address] MCHC (RBC) [Mass/Vol] 33.5 g/dL Normal 32.0 - 36.0 [facility] Comment on above: Performed By: #### C BCDF #### [facility] [address] [place] [address] MCV (RBC) [Entitic vol] 82 fL Normal 80 - 100 [facility] Comment on above: Performed By: #### C BCDF #### [facility] [address] [place] [address] Monocytes (Bld) [#/Vol] 1.19 10*3/uL High 0.10 - 1.[address] [facility] Comment on above: Performed By: #### C BCDF #### [facility] [address] [place] [address] Monocytes/100 WBC (Bld) 11.4 % Normal 2.0 - 10.0 [facility] Comment on above: Performed By: #### C BCDF #### [facility] [address] [place] [address] Neutrophils (Bld) [#/Vol] 6.68 10*3/uL Normal 1.20 - 7.70 [facility] Comment on above: Performed By: #### C BCDF #### [facility] [address] [place] [address] Neutrophils/100 WBC (Bld) 63.8 % Normal 40.0 - 80.0 [facility] Comment on above: Performed By: #### C BCDF #### [facility] [address] [place] [address] NUCLEATED RBC 0.0 /100 WBC Normal 0.0-0.0 [facility] Comment on above: Performed By: #### C BCDF #### [facility] [address] [place] [address] Platelets (Bld) [#/Vol] 322 10*3/uL Normal 150 - 450 [facility] Comment on above: Performed By: #### C BCDF #### [facility] [address] [place] [address] RBC 4.16 x10E12/L Normal 4.00 - 5.20 [facility] Comment on above: Performed By: #### C BCDF #### [facility] [address] [place] [address] WBC (Bld) [#/Vol] 10.5 10*3/uL Normal 4.4 - 11.3 [facility] Comment on above: Performed By: #### C BCDF #### [facility] [address] [place] [address] COMPREHENSIVE PANELon 2022 Albumin [Mass/Vol] 3.6 g/dL Normal 3.4 - 5.0 [facility] Comment on above: Performed By: #### C MP #### [facility] [address] [place] [address] ALP [Catalytic activity/Vol] 107 U/L Normal 33 - 110 [facility] Comment on above: Performed By: #### C MP #### [facility] [address] [place] [address] ALT [Catalytic activity/Vol] 23 U/L Normal 7 - 45 [facility] Comment on above: Result Comment: Gretta ents treated with Sulfasalazine may generate falsely decreased results for ALT. Performed By: #### C MP #### [facility] [address] [place] [address] Anion gap [Moles/Vol] 15 mmol/L Normal 10 - 20 [facility] Comment on above: Performed By: #### C MP #### [facility] [address] [place] [address] AST [Catalytic activity/Vol] 26 U/L Normal 9 - 39 [facility] Comment on above: Performed By: #### C MP #### [facility] [address] [place] [address] Bilirubin [Mass/Vol] 0.3 mg/dL Normal 0.0 - 1.2 [facility] Comment on above: Performed By: #### C MP #### [facility] [address] [place] [address] Calcium [Mass/Vol] 9.2 mg/dL Normal 8.6 - 10.6 [facility] Comment on above: Performed By: #### C MP #### [facility] [address] [place] [address] Chloride [Moles/Vol] 103 mmol/L Normal 98 - 107 [facility] Comment on above: Performed By: #### C MP #### [facility] [address] [place] [address] Creatinine [Mass/Vol] 0.92 mg/dL Normal 0.50 - 1.05 [facility] Comment on above: Performed By: #### C MP #### [facility] [address] [place] [address] GFR/1.73 sq M.predicted among non-blacks MDRD (S/P/Bld) [Vol rate/Area] 72 mL/min/{1.73_m2} Normal >90 [facility] Comment on above: Result Comment: CALC ULATIONS OF ESTIMATED GFR ARE PERFORMED USING THE 2020 CKD-EPI STUDY REFIT EQUATION WITHOUT THE RACE VARIABLE FOR THE IDMS-TRACEABLE CREATININE METHODS. https://jasn.asnjournals.org/content//ASN.2020 913118 Performed By: #### C MP #### [place] [address] [place] [address] Glucose [Mass/Vol] 95 mg/dL Normal 74 - 99 [facility] Comment on above: Performed By: #### C MP #### [facility] [address] [place] [address] HCO3 (Bld) [Moles/Vol] 25 mmol/L Normal 21 - 32 [facility] Comment on above: Performed By: #### C MP #### [facility] [address] [place] [address] Potassium [Moles/Vol] 4.1 mmol/L Normal 3.5 - 5.3 [facility] Comment on above: Performed By: #### C MP #### [facility] [address] [place] [address] Protein [Mass/Vol] 6.4 g/dL Normal 6.4 - 8.2 [facility] Comment on above: Performed By: #### C MP #### [facility] [address] [place] [address] Sodium [Moles/Vol] 139 mmol/L Normal 136 - 145 [facility] Comment on above: Performed By: #### C MP #### [facility] [address] [place] [address] Urea nitrogen [Mass/Vol] 9 mg/dL Normal 6 - 23 [facility] Comment on above: Performed By: #### C MP #### [facility] [address] [place] [address] Clinical Event Note-AH@H Scr eenon 10-24-2022 Clinical Event Note-AH@H Screen Clinical Event: Clinical Event Note: TopicAH@H Screen Details Patient was referred to AH@H program. Upon review with Provider and/or Social Assessment patient does not qualify for the program due to pt declined. Vicki Varela RNexperimental physicist Coordinator Electronic Signatures: Vicki Varela ([employer]) (Signed 24-Oct-2022 15:07) Authored: Clinical Event Note Last Updated: 24-Oct-2022 15:07 by Vicki Varela ([employer]IN [employer]) Normal 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 Sources used to confirm home medication list: Patient interview/ [facility]IE [facility] 10/20/2022 Additional comments: Patient was recently discharged from [facility] on 10/23/2022. Creon dosage was confirmed with patient of 24,000 units 1 capsule 3 times a day with meals. Medication reconciliation complete Please reach out via [employer] for questions Brandi Lr, PharmD, Meds Meds Ambulatory and Retail Services Is This Intervention Medication Reconciliation Relatedyes Time [id number] - 60 minutes Additional NotesDrug Name: mirtazapine [...] Discharge Meds, Education, Allergy Constance Buckley ([facility]) (Signed 27-Oct-2022 09:36) Co-Signer: Discharge Meds, Education, Allergy Last Updated: 27-Oct-2022 09:36 by Constance Buckley ([facility]) Normal [facility] Complete Blood Count + Diffe rentialon 10-24-2022 Basophils/100 WBC (Bld) 1.1 % 0.0 - 2.0 M [facility]- [email or web address] Work Phone: Erythrocyte distribution width (RBC) [Ratio] 13.4 % See Below [employer]MedicineLiving [employer] Work Phone: Comment on above: Reference Range: 11. 5 - 14.5 Hematocrit (Bld) [Volume fraction] 34.0 % below low threshold See Below -Ulices Giang Work Phone: Comment on above: Reference Range: 36. 0 - 46.0 Hemoglobin (Bld) [Mass/Vol] 11.4 g/dL below low threshold See Below MG-Ulices Giang Work Phone: Comment on above: Reference Range: 12. 0 - 16.0 Lymphocytes/100 WBC (Bld) 16.0 % See Below [facility]-Ulices Giang Work Phone: [phone] Comment on above: Reference Range: 13. 0 - 44.0 MCHC (RBC) [Mass/Vol] 33.5 g/dL See Below JUAN Giang Work Phone: [phone] Comment on above: Reference Range: 32. 0 - 36.0 MCV (RBC) [Entitic vol] 82 fL 80 - 100 M Kusum Giang Work Phone: [phone] Monocytes/100 WBC (Bld) 11.4 % 2.0 - 10.0 M KayleyUlices Giang Work Phone: [phone] Neutrophils/100 WBC (Bld) 63.8 % See Below Jerod Giang Work Phone: [phone] Comment on above: Reference Range: 40. 0 - 80.0 Platelets (Bld) [#/Vol] 322 10*3/uL 150 - 450 Jerod Giang Work Phone: [phone] RBC (Bld) [#/Vol] 4.16 {x10E12/L} See Below MG Nathalie Giang Work Phone: [phone] Comment on above: Reference Range: 4.0 0 - 5.20 WBC (Bld) [#/Vol] 10.5 10*3/uL 4.4 - 11.3 MG-Az dicineSierra Giang Work Phone: [phone] Complete Blood Count + Differential 0.11 {x10E9/L} above high threshold See Below Jerod Giang Work Phone: [phone] Comment on above: Reference Range: 0.0 0 - 0.10 Complete Blood Count + Differential 0.75 {x10E9/L} above high threshold See Below [facility] Work Phone: Comment on above: Reference Range: 0.0 0 - 0.70 Complete Blood Count + Differential 1.19 {x10E9/L} above high threshold See Below [facility] Wilfrid Giang Work Phone: Comment on above: Reference Range: 0.1 0 - 1.00 Complete Blood Count + Differential 1.67 {x10E9/L} See Below [facility] Wilfrid Giang Work Phone: Comment on above: Reference Range: 1.2 0 - 4.80 Complete Blood Count + Differential 6.68 {x10E9/L} See Below [facility] Yuen Giang Work Phone: Comment on above: Reference Range: 1.2 0 - 7.70 Complete Blood Count + Differential 7.2 % 0.0 - 6.0 [facility] Yuen Giang Work Phone: Complete Blood Count + Differential 0.5 % 0.0 - 0.9 [facility] Wilfrid Giang Work Phone: Comment on above: Immature Granulocyte Count (IG) includes promyelocytes, myelocytes and metamyelocytes but does not include bands. Percent differential counts (%) should be interpreted in the context of the absolute cell counts (cells/L). Complete Blood Count + Differential 0.0 {/100_WBC} 0.0-0.0 [facility] Wilfrid [place] Work Phone: Consult-ENTon 10-24-2022 Consult-ENT Service: Service: ENT Consult: Consult requested by (Attending Name): Tai Peoples Reason: 57 yo female coming [facility] as a transfer from [facility] for R eye evaluation for a cut-down biopsy of diffuse inflitration from the orbit into aspirus onton[facility] hospitaling tissue. Pt had an extensive work up at [facility] and [place] and rheumatologic or infectious causes [...] imaging. Pt noted to originally present to [facility] for 1 month of worseninig right eye pain/right headache/episodes of blurry and double vision without other symptoms. Denies eye trauma. Denies similar prior episodes. Denies nasal congestion/drainage. No inciting event. No relief with outpt antibiotics. At [facility] some improvement noted with antibiotics. Rheum c/s determined no rheum cause. Has not tried steroids yet. ENT at [facility] determined no need for biopsy at [...] 57 year old female transferred from [facility] for evaluation by oculoplastics here for biopsy [...] Fortino Mathews DO, PGY2 Adult Service Pager: [phone] Peds Service Pager: [phone] [phone]. Review Family/Social History and ROS: Social History: Smoking Status: unable to assess (1) Alcohol Use: denies(1) Drug Use: denies (1) Allergies: penicillin: Hives/Urticaria Consult Status: Consult Order ID: [id number] Attestation: Note Completion: I am a: Resident/Fellow [...] the note. I personally evaluated the patient [id number] Electronic Signatures: Fortino Mathews ( (R (more content not included)... Normal [facility] Consult-Infectious Diseaseon 10-24-2022 Consult-Infectious Disease Service: Service: Infectious Disease Consult: Consult requested by (Attending Name): Tai Peoples Reason: 57 year old woman who is presenting as a transfer to [facility] from [facility] for further management of preseptal cellulitis vs. infiltrative process of her right eye seen on MRI orbit. ID at [facility] recommended Vanc/zosyn History of Present Illness: HPI: GRACIE BANUELOS is a 57 year old woman pmhx sig for COPD, HTN, transferred from [facility] on 10/23 for inflammatory eye disease/possible preseptal cellulitis. HPI per notes and pt. Pt reports ~1 mos R eye redness, swelling and pain. Was treated by outpt eye doctor w/ azithromycin x 5 days on 10/17. Presented to [facility]. Given 1 dose clindamycin and transferred to [facility]. Admits to having fever and chills prior to [facility] admission, but describes them as sweats which [...] candles. Never had this before. 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 Normal [facility] Consult-Ophthalmologyon 09-29 Consult-Ophthalmology Service: Service: Ophthalmology Consult: Consult requested by (Attending Name): Tai Peoples Reason: 57 yo female coming as a transfer from [facility] for R eye evaluation for oculoplastic need for a cut-down biopsy of diffuse inflitration from the orbit into surroiunding tissue. Pt had an extensive work up at [facility] and [place] and rheumatologic or infectious causes were ruled [...] progressed. On 10/19/22 she presented to the [place] Emergency Department and CT orbits showed findings concerning for right orbital cellulitis. WBC was reportedly 13.9, ESR 75, and CRP 42.6. She was prescribed clindamycin to take at home, but her pain only worsened and she presented to [facility] on 10/20/22 for further management. MRI orbits [...] CT Orbit Sella Inner, by report from [employer] shows: 1. Marked abnormality of the soft [...] which I personally reviewed, by report from [facility] shows Abnormal infiltration throughout the right retroantral and extraconal fat as well as the pterygopalatine fossa and diffusely throughout the right documentation liaison space with asymmetry of the muscles of mastication. Additional mild enlargement of the right inferior and lateral rectus. These findings are highly concerning for invasive fungal sinusitis until proven otherwise. Mild as (more content not included)... Normal [facility] Discharge Planning [id number] 10-24-2022 Discharge Planning Note2 Discharge Planning: Needs Prior to Discharge (ex. Home Care Orders, IV/O2 prescriptions) f/u appts Discharge Barriersnone Planned Dispositionhome Discharge DestinationHome with family vs HC if IV abx needed AMPAC < 20no Anticipated Discharge [id number] Discharge Planning 10/23/22-Admission [id number] arrived to unit from [facility] via stretcher per community care in stable [...] Await ID reccs; opthalmology on board. Payer: [facility] Status: inpatient Discharge disposition: HC RN if IV abx needed. Potential Barriers: none ADOD: 10/29 Vicki Varela RNexperimental physicist Coordinator Assessment: Discharge Planning Assessment Discharge Planning Assessment Completed Umberto Varela RNexperimental physicist Coordinator Primary Contact Name and NumberTina Augustine (sister)-[phone] Prior Level of Functioningind with ADLS Lives Withadult child(rama); dependent child(rama); daughter and granddaughter Living Arrangementshouse PCPJoy Older [facility] [place] Recent Falls/ Injury/ Need Assist with Ambulationdenies Equipment Currently Used at [facility] DME Supplier Name/Numbern/a Home Care Agency/Support Servicesn/a Diabetic/Supplies Neededn/a Hemodialysis Schedulen/a [facility] Anticipated at [facility] PCP Last Date Seencouple months ago InsuranceCaresource Equipment Needed After Dischargenone Anticipated Discharge Facility/Level of Care Needs.Home Discharge Planning CommentsPt has transportation to medical appointments, feels safe at home. Address, phone and emergency contact information verified. All questions and concerns answered. Will continue to follow for discharge needs. Vicki Varela experimental physicist Coordinator Social Determinants of Health Identifiedpast hx of ETOH use Transportation Home Who/Howsister Medication Adherence/Afford/Obtain yes Home O2/BiPAP/CPAPHome O2 O2 LPM2L NC PRN Home O2 SupplierDasko Discharge Documentation: Code StatusCode Status order at time of discharge: Full Code Electronic Signatures: Vicki Varela (CLIN COOR) (Signed 27-Oct-2022 13:57) Authored: Discharge Planning, Assessment, Discharge Documentation Humberto Arriaga (RN) (Signed 24-Oct-2022 00:15) Authored: Discharge Planning, Assessment Last Updated: 27-Oct-2022 13:57 by Vicki Varela (CLIN COOR) Normal [facility] Discharge [id number] Discharge Profile2 Discharge Orders: Anticipated Discharge Date: Anticipated Discharge [id number] DNAR: Code Status at Discharge: Full Code Activity: activity as tolerated. Diet: Dietregular Labs 1: Lab Test(s)RFP Date To Be Drawn10/30/22 Call Results ToSoila Easton CNP or Fax Results [phone] CommentsPCP consider monitoring improvement of CHUY upon recent hospital admission Oxygen: Administer oxygen at 2 liters/min via nasal cannula to maintain SpO2 % of 88-92 with activity. Additional Orders: Additional Instructions Dear Ms. Banuelos, You presented to us as transfer from [facility] for a possible biopsy of the right [...] vs. infiltrative mass. Vanc/zosyn were started at [facility]. Oculoplastic were consulted and there was a [...] for ReferralEstablish with Primary Care Provider Scheduled Date/[id number] 16:[address] [place] [address], [address] [place] [address] fax Phone [phone] CommentsPlease bring your insurance card, photo id, a list of medication in the original bottle, any co-pays you may have, and the discharge summary Follow-Up Appointment 02: Physician/Dept/ServiceO phthalmology: Dr Ortega Scheduled Date/[id number] 15:30 [facility] [address] , [address] [facility] [address] CommentsPlease bring your insurance card, photo id, a list of medication in the original bottle, any co-pays you may have, and the discharge summary Follow-Up Appointment 03: Physician/Dept/ServiceJ bre Easton CNP Call to Schedule inPatient is to call upon discharge and schedule follow up for Thursday10/31/[address] [place] [address] or Electronic Signatures: Annie Escobedo (PT ACC REP) (Signed 28-Oct-2022 09:45) Authored: Discharge Orders, Appointments Justyn Richter (Resident)) (Signed 29-Oct-2022 11:30) Authored: Discharge Orders, Hospital Course (Home Care/Gold Form), Provider FINAL REVIEW of Orders Katina Booker (LEI MAKER-BOX TOE MAKER) (Signed 28-Oct-2022 09:22) Authored: Discharge Orders, Provider FINAL REVIEW of Orders, Gold Form - Surgical Nurse Practitioner Summary Donn Trammell (Resident)) (Signed 29-Oct-2022 12:36) Authored: Discharge Orders, Hospital Course (Home Care/Gold Form), Provider FINAL REVIEW of Orders, Appointments Last Updated: 29-Oct-2022 12:36 by Donn Trammell ( (Resident)) Normal [facility] Electrocardiogram 12 Leadon 10-24-2022 Electrocardiogram 12 Lead Ventricular Rate 82 Atrial Rate 82 P-R Interval 168 QRS Duration 74 Q-T Interval 394 QTC Calculation(Bazett) 460 P Dewar 50 R Dewar 76 T Dewar 79 QRS Count 14 Q Onset 233 P Onset 149 P Offset 196 T Offset 430 QTC Fredericia 437 Diagnosis Class Abnormal Diagnosis Normal sinus rhythm Anterior infarct , age undetermined Abnormal ECG No previous ECGs available Confirmed by Dinesh Najera ([id number]) on 10/24/2022 11:13:[address] [facility] Laboratory - Chemistry and C hemistry - challengeon 10-24-2022 Albumin BCP dye [Mass/Vol] 3.6 g/dL 3.4 - 5.0 [facility] Wilfrid Giang Work Phone: [phone] ALP [Catalytic activity/Vol] 107 U/L 33 - 110 [facility] Giang Work Phone: ALT With P-5'-P [Catalytic activity/Vol] 23 U/L 7 - 45 [facility] Work Phone: Comment on above: Patients treated wit h Sulfasalazine may generate falsely decreased results for ALT. Anion gap [Moles/Vol] 15 mmol/L 10 - 20 MG- [facility] Wilfrid Giang Work Phone: AST With P-5'-P [Catalytic activity/Vol] 26 U/L 9 - 39 [facility] Work Phone: Bilirubin [Mass/Vol] 0.3 mg/dL 0.0 - 1.2 [facility] Giang Work Phone: [phone] Calcium [Mass/Vol] 9.2 mg/dL 8.6 - 10.6 [facility] Work Phone: [phone] Chloride [Moles/Vol] 103 mmol/L 98 - 107 [facility] Wilfrid Giang Work Phone: CO2 [Moles/Vol] 25 mmol/L 21 - 32 [facility] Giang Work Phone: Creatinine [Mass/Vol] 0.92 mg/dL See Below - [facility] Work Phone: Comment on above: Reference Range: 0.5 0 - 1.05 Glucose [Mass/Vol] 95 mg/dL 74 - 99 [facility] rigoberto Giang Work Phone: Potassium [Moles/Vol] 4.1 mmol/L 3.5 - 5.3 MG- Medicine- Wilfrid Giang Work Phone: [phone] Protein [Mass/Vol] 6.4 g/dL 6.4 - 8.2 [facility] rigoberto Giang Work Phone: [phone] Sodium [Moles/Vol] 139 mmol/L 136 - 145 MG-Med giovany- Wilfrid Giang Work Phone: [phone] Urea nitrogen [Mass/Vol] 9 mg/dL 6 - 23 MG-Ulices Giang Work Phone: MAGNESIUMon 10-24-2022 Magnesium [Mass/Vol] 1.75 mg/dL Normal 1.60 - 2.40 [facility] Comment on above: Performed By: #### V ANCU #### [facility] [address] [address] Magnesium, Serumon Magnesium [Mass/Vol] 1.75 mg/dL See Below MG-M mack Giang Work Phone: Comment on above: Reference Range: 1.6 0 - 2.40 No Panel Informationon 10-24 72 {mL/min/1.73m2} >90 [facility] rigoberto Giang Work Phone: Comment on above: CALCULATIONS OF PAVAN MATED GFR ARE PERFORMED USING THE 2020 CKD-EPI STUDY REFIT EQUATION WITHOUT THE RACE VARIABLE FOR THE IDMS-TRACEABLE CREATININE METHODS.https://jasn.asnjournals.org/content/early// ASN.6015621741 https://MUSEXPRDWE B01 :8080/radhascripts/radhaw eb.dll?RetrieveTestByDa Domi?SyporttCC=635368 393&Date=24-10-2022&Jose Luis e=06%3a25%3a35%3a00&Shabana tType=ECG&Site=1&Output Type=PDF&Ext=PDF MG-Ulices Giang Work Phone: Normal sinus rhythm MG-Me dicine- Wilfrid Rahat Work Phone: Abnormal [facility]- Wilfrid Giang Work [...] (Advanced Practice Nurse-Admit) done by Katina Booker (LEI MAKER-BOX TOE MAKER) Discharge - Partial Reconciliation: 24-Oct-2022 08:06 by: Katina Booker (LEI MAKER-BOX TOE MAKER) Discharge - Partial Reconciliation: 27-Oct-2022 06:53 by: Katina Booker (LEI MAKER-BOX TOE MAKER) Discharge - Partial Reconciliation: 27-Oct-2022 07:55 by: Katina Booker (LEI MAKER-BOX TOE MAKER) Discharge - Partial Reconciliation: 27-Oct-2022 13:27 by: Katina Booker (LEI MAKER-BOX TOE MAKER) Discharge - Partial Reconciliation: 28-Oct-2022 07:04 by: Katina Booker (LEI MAKER-BOX TOE MAKER) Discharge - Reconciliation: 28-Oct-2022 07:09 by: Katina Booker (LEI MAKER-BOX TOE MAKER) Discharge - Reset to Incomplete: 28-Oct-2022 07:11 by: Katina Booker (LEI MAKER-BOX TOE MAKER) Discharge - Reconciliation: 28-Oct-2022 07:11 by: Katina Booker (LEI MAKER-BOX TOE MAKER) Discharge - Reset to Incomplete: 28-Oct-2022 09:07 by: Katina Booker (LEI MAKER-BOX TOE MAKER) Discharge - Partial Reconciliation: 28-Oct-2022 09:08 by: Katina Booker (LEI MAKER-BOX TOE MAKER) Discharge - Reconciliation: 28-Oct-2022 09:08 by: Katina Booker (LEI MAKER-BOX TOE MAKER) Discharge - Reset to Incomplete: 28-Oct-2022 09:09 by: Katina Booker (LEI MAKER-BOX TOE MAKER) Discharge - Reconciliation: 28-Oct-2022 09:16 by: Katina Booker (LEI MAKER-BOX TOE MAKER) Discharge - Reset to Incomplete: 28-Oct-2022 10:10 by: Donn Trammell ( (Resident)) Discharge - Reconciliation: 28-Oct-2022 10:16 by: Donn Trammell ( (Resident)) Discharge - Reset to Incomplete: 28-Oct-2022 11:05 by: Noemí Asif ( (Resident)) Discharge - Partial Reconciliation: 28-Oct-2022 11:06 by: Noemí Asif ( (Resident)) Discharge - Reconciliation: 28-Oct-2022 11:08 by: Katina Booker (LEI MAKER-BOX TOE MAKER) Discharge - Reset to Incomplete: 29-Oct-2022 07:20 by: Katina Booker (LEI MAKER-BOX TOE MAKER) Discharge - Partial Reconciliation: 29-Oct-2022 07:21 by: Katina Booker (LEI MAKER-BOX TOE MAKER) Discharge - Reconciliation: 29-Oct-2022 08:21 by: Katina Booker ([facility]) Discharge - Reset to Incomplete: 29-Oct-2022 11:27 by: Katina Booker ([facility]) Discharge - Reconciliation: 29-Oct-2022 11:31 by: Katina Booker ([facility]) Discharge - Reset to Incomplete: 29-Oct-2022 13:31 by: Katina Booker ([facility]) Discharge - Reconciliation: 29-Oct-2022 13:34 by: Katina Booker ([facility]) Home Medications EnteredHOME MEDICATIONS AT DISCHARGE [...] As Needed 27-Oct-2022 16:26 Discontinued; Discontinue from OR busPIRone 10 mg oral tablet is not [...] 2 inha (more content not included)... Normal [facility] Order Reconciliation Page 1 Admission [...] Notes: Was receiving vancomycin 1,250mg q12h at [facility], last dose given 1700 on 10/23. Vancomycin trough 17.4 obtained 10/23 16:[address] [facility] Patient Profile - Adult v2on [...] Health: Weight in kg60.1 kilogram(s)(1) Weight in iko557.4 pound(s) Weight Methodactual (measured) Scale Typebed Height [...] 24-Oct-2022 06:32) Authored: Initial Info, General Health, [facility] Based Care, Substance, Health Mgmt, Relationship/Environ, Additional Information Last Updated: 24-Oct-2022 06:32 by Humberto Arriaga (SARWAT) References: 1. Data Referenced From 1. Vital Signs 24-Oct-2022 00:05 2. Data Referenced From History and Physical 24-Oct-2022 02:[address] [facility] SEDIMENTATION RATE, ERYTHROC YTEon 10-24-2022 SEDIMENTATION RATE, ERYTHROCYTE 80 mm/h High 0 - 30 [facility] Comment on above: Performed By: #### V ANCU #### [facility] [address] [place] [address] Sedimentation Rate, Erythroc yteon 10-24-2022 ESR (Bld) [Velocity] 80 mm/h above high threshold 0 - 30 [facility] Wilfrid Giang Work Phone: T-SPOT. TBon 10-24-2022 T-SPOT. TB Passed [facility] Wilfrid Giang Work Phone: T-SPOT. TB 0 1 [facility] Wilfrid Giang Work Phone: T-SPOT. TB Negative See Below [...] 10-23-2022 MYELOPEROXIDASE < 0.2 Normal <1.0 [facility] Comment on above: Performed By: #### A NCA ROCHA VAS #### [facility] [address] [place] [address], MYELOPEROXIDASE INTERPRETATION Negative Normal Negative [facility] Comment on above: Performed By: #### A NCA ROCHA VAS #### [facility] [address] [place] [address], PROTEINASE-3 < 0.2 Normal <1.0 [facility] Comment on above: Performed By: #### A NCA ROCHA VAS #### [facility] [address] [place] [address], PROTEINASE-3 INTERPRETATION Negative Normal Negative [facility] Comment on above: Performed By: #### A NCA ROCHA VAS #### [facility] [address] [place] [address], C-REACTIVE PROTEINon 023 CRP 4.6 mg/dL High <0.8 [facility] Comment on above: Performed By: #### T SH HS, T3, CRP #### [facility] [address] [place] [address], CLOSTRIDIUM DIFFICILEon 09-29 CLOSTRIDIUM DIFFICILE Negative Normal Negative [facility] Comment on above: Order Comment: Resul ts obtained by using a real-time PCR based qualitative in vitro diagnostic test for the direct detection of the C. difficile toxin A gene (tcdA) and toxin B gene (tcdB) targets in stool specimens.Results should be interpreted in conjunction with information from the patient clinical evaluation and other diagnostic testing Performed By: #### C DD ####[facility] [address] [place], [place] Care Plan Noteon 10-23-2022 Heavy Equipment Field Mechanic Authentication Interface Message Text [facility] wait time is extensive per transfer. I spoke with pt and Domonique - they are agreeable to pursue . Please initiate transfer to Orbital surgery for biopsy Pt is accepted to [facility] by Dr. Jannette Eid, pending bed availability. However, as there is extensive wait time for the bed will initiate [facility] transfer. Normal [facility] Heavy Equipment Field Mechanic Authentication Interface Message Text Problem: Routine Care: [...] and/or be maintained Outcome: Progressing Normal [facility] ERYTHROCYTE SEDIMENTATION RA Km 10-23-2022 ESR (Bld) [Velocity] 53 mm/h High <=30 [facility] Comment on above: Performed By: #### C OVID19 #### [facility] [address] [place] [address], IMMUNOGLOBULIN Sudeep 3 IgG [Mass/Vol] 842 mg/dL Normal [id number] [facility] Comment on above: Performed By: #### C OVID19 #### [facility] [address] [place] [address], NOVEL CORONAVIRUS (COVID-19) on 10-23-2022 SARS-CoV-2 (COVID-19) RNA KANDY+probe Ql (Unsp spec) Not detected Normal Not Detected [facility] Comment on above: Order Comment: Not D etected results are indicative of the absence of SARS-CoV-2 in the specimen submitted for testing. False negative results are possible based on the timing and quality of specimen submitted for testing. This test is intended for use only under Emergency Use Authorization (EUA). This test was developed, and its performance characteristics determined by [facility] which is certified under CLIA as qualified to perform high complexity clinical laboratory testing. Result Comment: This assay was performed using The [employer] RTPCR technology. Performed By: #### C OVID19 #### [facility] [address] [place] [address], [place], [address] Progress Noteson 10-23-2022 Heavy Equipment Field Mechanic Authentication Interface Message Text 2330 Transferred to via ambulette Normal [facility] Heavy Equipment Field Mechanic Authentication Interface Message Text 2119 Received a call from that patient has a bed held for her. She will be going to [facility], [place] [address], Bed 0271. Requesting copy of chart to accompany pt. Call nursing report to [phone]. Cuca, LEI MAKER-BOX TOE MAKER notified. 2148 Ambulance request placed. Patient notified. Chart being prepped by [facility] [facility]. 2329 Report called SARWAT Pastrana. Pt transported via ambulette with all belongings. Pt updated her family of her transfer. Normal [facility] Heavy Equipment Field Mechanic Authentication Interface Message Text Pharmacokinetic Dosing Service - VANCOMYCIN Name: Gracie Banuelos Age:[age] year old Gender: female Ht: 5' 3 Wt: no weight Indication: orbital cellulitis/GATE ATTENDANT (?) Desired Ranges: 15-20 Day of therapy: 4 Assessment and Recommendations: 10/23/22 PLAPPONI- Day4: orbital cellulitis/GATE ATTENDANT (?) ; Renal function: stable; Current level:17.4. [...] Source/Reason for Therapy Answer: Central Nervous System (GATE ATTENDANT) -- 10/20/221652 vancomycin dosing pharmacy consult Other, As Directed Question: Suspected Source/Reason for Therapy Answer: Central Nervous System (GATE ATTENDANT) -- Lab Values: Creatinine Date Value Ref Range Status 10/20/2022 0.56 0.50 - 1.10 mg/dL Final Lab Results Component Value Date/Time VANCTR 17.4 10/23/2022 04:19 PM VANCTR 16.6 10/21/2022 03:44 PM No results found for: VANCR Serum creatinine: 0.56 mg/dL 10/20/22 0910 Estimated creatinine clearance: 89.48 mL/min Culture(s): FRIEDA ANDERSON, [facility] - Department of Pharmacy Services Normal [facility] Heavy Equipment Field Mechanic Authentication Interface Message Text CM aware of transfer process that [facility]. CM will remain available to assist with discharge planning and needs as warranted. Katina GALLOWAY, java jsf developer (8:30-4:00) Normal [facility] Heavy Equipment Field Mechanic Authentication Interface Message Text Daily follow up [...] Syphilis Tb - Recommend transfer to or [facility] for oculoplastics care. The patient [...] MD Ophthalmology Resident Plan discussed with Dr. Kidd Normal [facility] Heavy Equipment Field Mechanic Authentication Interface Message Text ID FOLLOW UP [...] IV -Ophthalmology on board. Awaiting transfer to [facility] or for oculoplasty and biopsy to determine etiology due to concern for infiltrative process. -Consider repeat MRI orbit to reassess if transfer is delay. -Continue to monitor BM as she has diarrhea. Noted Cdiff negative. -Ok to remove contact precautions. ID will continue to follow Findings and recommendations discussed with Dr. Oliveira. Car Dorado MD ID fellow, PGY-4 Pager: [phone] Normal [facility] RHEUMATOID FACTORon 10-23-19 23 RHEUMATOID FACTOR < 10 Normal <10 [facility] Comment on above: Performed By: #### C OVID19 #### [facility] [address] [place] [address], SYPHILIS WITH CONFIRMATIONon 10-23-2022 SYPHILIS TOTAL (IGG/IGM) Non-Reactive Normal Non-Reactive [facility] Comment on above: Order Comment: Not D etected results are indicative of the absence of SARS-CoV-2 in the specimen submitted for testing. False negative results are possible based on the timing and quality of specimen submitted for testing. This test is intended for use only under Emergency Use Authorization (EUA). This test was developed, and its performance characteristics determined by [facility] which is certified under CLIA as qualified to perform high complexity clinical laboratory testing. Performed By: #### C OVID19 #### [facility] [address] [place] [address], TPPA Normal The [facility] Comment on above: Order Comment: Not D etected results are indicative of the absence of SARS-CoV-2 in the specimen submitted for testing. False negative results are possible based on the timing and quality of specimen submitted for testing. This test is intended for use only under Emergency Use Authorization (EUA). This test was developed, and its performance characteristics determined by [facility] which is certified under CLIA as qualified to perform high complexity clinical laboratory testing. Performed By: #### C OVID19 #### [facility] [address] [place] [address], TRIIODOTHYRONINE (T3)on 09-29 T3 135.6 ng/dL Normal 87.0-179.0 [facility] Comment on above: Performed By: #### T SH HS, T3, CRP #### [facility] [address] [place] [address], TSHon 10-23-2022 TSH 3.964 uIU/mL Normal 0.450-5.330 [facility] Comment on above: Result Comment: Refe ludin range for women as applicable: First Trimester: 0. 050 to 3.700 uIU/mL Second Trimester: 0. 310 to 4.350 uIU/mL Third Trimester: 0. 410 to 5.180 uIU/mL Performed By: #### T SH HS, T3, CRP #### [facility] [address] [place], [place], Telephone Encounteron 2022 Heavy Equipment Field Mechanic Authentication Interface Message Text Spoke to Domonique, pt sister Explained rationale for biopsy and transfer All questions answered Normal [facility] Heavy Equipment Field Mechanic Authentication Interface Message Text PT's sister, Domonique calling in stating Dr. Aggarwal called and LVM for her regarding her sister that is inpatient. Please call Domonique back to discuss her sister Dx's [phone] ( PT will be home until 2:30 pm) Normal The [facility] VANCOMYCIN TROUGHon 10-23-19 23 VANC TR 17.4 ug/mL Normal 10.0-20.0 [facility] Comment on above: Performed By: #### V ANC TR #### [facility] [address] [place], [place], CBC WITH DIFFERENTIALon 09-29 Basophils (Bld) [#/Vol] 0.12 10*3/uL Normal 0.00-0.20 [facility] Comment on above: Performed By: #### C BCDSAT ####[facility] [id number] [place], Basophils/100 WBC (Bld) 0.7 % Normal <=1.9 [facility] Comment on above: Performed By: #### C BCDSAT ####[facility] [id number] [place], Eosinophils (Bld) [#/Vol] 0.54 10*3/uL Normal 0.00-0.70 [facility] Comment on above: Performed By: #### C BCDSAT ####[facility] [id number] [place], Eosinophils/100 WBC (Bld) 3.4 % Normal 0.1-4.0 [facility] Comment on above: Performed By: #### C BCDSAT ####[facility] [id number] [place], Erythrocyte distribution width (RBC) [Ratio] 14.1 % Normal 11.5-14.5 [facility] Comment on above: Performed By: #### C BCDSAT ####[facility] [id number] [place], Hematocrit (Bld) [Volume fraction] 35.3 % Low 36.0-46.0 [facility] Comment on above: Performed By: #### C BCDSAT ####[facility] [id number] [place], Hemoglobin (Bld) [Mass/Vol] 11.4 g/dL Low 12.0-15.0 [facility] Comment on above: Performed By: #### C BCDSAT ####[facility] [id number] [place], Lymphocytes (Bld) [#/Vol] 2.11 10*3/uL Normal 1.00-4.80 [facility] Comment on above: Performed By: #### C BCDSAT ####[facility] [id number] [place], Lymphocytes/100 WBC (Bld) 13.2 % Low 24.0-44.0 [facility] Comment on above: Performed By: #### C BCDSAT ####[facility] [id number] [place], MCH (RBC) [Entitic mass] 27.4 pg Normal 26.0-34.0 [facility] Comment on above: Performed By: #### C BCDSAT ####[facility] [id number] [place], MCHC (RBC) [Mass/Vol] 32.3 g/dL Normal 32.0-35.9 [facility] Comment on above: Performed By: #### C BCDSAT ####[facility] [id number] [place], MCV (RBC) [Entitic vol] 85 fL Normal 80-100 T he [facility] Comment on above: Performed By: #### C BCDSAT ####S PATHOLOGY [id number] [place], MONOCYTE DISTRIBUTION WIDTH Normal The [facility] Comment on above: Performed By: #### C BCDSAT ####[facility] [id number] [place], Monocytes (Bld) [#/Vol] 1.11 10*3/uL High 0.20-1.00 The [facility] Comment on above: Performed By: #### C BCDSAT ####[facility] [id number] [place], Monocytes/100 WBC (Bld) 7.0 % Normal 2.0-11.0 T [facility] Comment on above: Performed By: #### C BCDSAT ####[facility] [id number] [place], Neutrophils (Bld) [#/Vol] 12.11 10*3/uL High 1.50-8.00 The [facility] Comment on above: Performed By: #### C BCDSAT ####[facility] [id number] [place], Neutrophils/100 WBC (Bld) 75.7 % Normal 31.0-76.0 The [facility] Comment on above: Performed By: #### C BCDSAT ####[facility] [id number] [place], Platelet mean volume (Bld) [Entitic vol] 8.0 fL Normal 7.5-11.2 The [facility] Comment on above: Performed By: #### C BCDSAT ####S PATHOLOGY [id number] [place], Platelets (Bld) [#/Vol] 332 10*3/uL Normal 150-400 [facility] Comment on above: Performed By: #### C BCDSAT ####[facility] [id number] [place], RBC (Bld) [#/Vol] 4.16 10*6/uL Normal 4.00-5.20 [facility] Comment on above: Performed By: #### C BCDSAT ####[facility] [id number] [place], WBC (Bld) [#/Vol] 16.0 10*3/uL High 4.5-11.5 [facility] Comment on above: Performed By: #### C BCDSAT ####[facility] [id number] [place], Care Plan Noteon 10-22-2022 Heavy Equipment Field Mechanic Authentication Interface Message Text Ophthal called me and [facility] for Oculoplastic Orbital surgery for biopsy Patient requested me to talk with her sister, Domonique who is a HCW. I discussed the above recommendations and she preferred [facility] transfer. Will initiate the process tomorrow. Normal [facility] Heavy Equipment Field Mechanic Authentication Interface Message Text Problem: Routine Care: [...] will be met Outcome: Progressing Normal [facility] Progress Noteson 10-22-2022 Heavy Equipment Field Mechanic [employer] Interface Message Text Attestation signed by Suha [...] she remains afebrile. Ophthalmology recommended [facility] or for oculoplasty due to [...] (10/21) -Ophthalmology on board. Recommended transfer to [facility] or for oculoplasty and biopsy to determine etiology due to concern for infiltrative process. ID will continue to follow Findings and recommendations discussed with Dr. Oliveira. Car Dorado MD ID fellow, PGY-4 Pager: [phone] Normal The [employer] Interface Message Text Teaching Physician Note: I [...] to orbital surgeon for biopsy: [facility]P at [facility] or Uri Peña MD Normal The [employer] Interface Message Text Daily follow up visit [...] that did not have beds, sent to [facility] for possible admission for orbital cellulitis - [...] into the pterygopalatine fossa; unclear [facility] [...] from ENT - Recommend transfer to or [facility] for oculoplastics care. The patient [...] discussed with Dr. Kidd and Normal [facility] Care Plan Noteon 10-21-2022 Heavy Equipment Field Mechanic Authentication Interface Message Text Problem: Routine Care: [...] will be met Outcome: Progressing Normal [facility] Heavy Equipment Field Mechanic Authentication Interface Message Text Problem: Routine Care: [...] will be met Outcome: Progressing Normal [facility] Consultson 10-21-2022 Heavy Equipment Field Mechanic Authentication Interface Message Text Attestation signed by [...] pertinent surgical history. Allergies: Allergies Allergen Reactions [place] [Acetaminophen-Hydrocod one] Penicillins Medications: Current Facility-Administered Medications [...] At Bedtime 20 mg at 10/20/22 2209 [NOV Hold] albuterol (PROVENTIL) (2.5 MG/3ML) 0.083% nebulizer [...] At Bedtime 5 mg at 10/20/22 2209 [id number] (CREON (more content not included)... Normal [facility] MR HEAD/ORBIT W/Oon 10-21-19 MR HEAD/ORBIT [...] and diffuse abnormal infiltration throughout the right documentation liaison space with asymmetric enlargement of the right [...] pterygopalatine fossa and diffusely throughout the right documentation liaison space with asymmetry of the muscles of [...] with read back verification. (-CF-) Normal [facility] MR ORBIT W/+W/Oon 10-21-2022 MR ORBIT [...] infiltration of the right muscles of the documentation liaison (pterygoids and the temporalis), retroantral fat pad [...] sinus are normal. MACRO: None Normal [facility] Progress Noteson 10-21-2022 Heavy Equipment Field Mechanic Authentication Interface Message Text [address] Stein requesting robitussin. Normal [facility] Heavy Equipment Field Mechanic Authentication Interface Message Text Pharmacokinetic Dosing Service - VANCOMYCIN Name: Gracie Banuelos Age:[age] year old Gender: female Ht: 5' 3 Wt: no weight Indication: Central Nervous System (GATE ATTENDANT) and orbital cellulitis Desired Ranges: 15-20 Day of therapy: 2 Assessment and Recommendations: 10/21/22 HROBINSON1- Day 2: Central Nervous System (GATE ATTENDANT) and orbital cellulitis ; Renal function: stable; No change recommended. Next level Due:prior to 4th dose. Level not ordered Current Dose Active Vancomycin Orders (From admission, onward) Start Stop 10/20/221654 vancomycin (VANCOCIN) 1,250 mg/250 mL iv soln (ROOM TEMP PREMIX) 20 mg/kg, Intravenous, EVERY 12 HOURS Question: Suspected Source/Reason for Therapy Answer: Central Nervous System (GATE ATTENDANT) -- 10/20/221652 vancomycin dosing pharmacy consult Other, As Directed Question: Suspected Source/Reason for Therapy Answer: Central Nervous System (GATE ATTENDANT) -- Lab Values: Creatinine Date Value Ref Range Status 10/20/2022 0.56 0.50 - 1.10 mg/dL Final Lab Results Component Value Date/Time VANCTR 16.6 10/21/2022 03:44 PM No results found for: VANCR Serum creatinine: 0.56 mg/dL 10/20/22 0910 Estimated creatinine clearance: 89.48 mL/min Culture(s): PENDING. Chelsea Montilla [facility] - Department of Pharmacy Services Normal [facility] Heavy Equipment Field Mechanic Authentication Interface Message Text Follow up visit [...] that did not have beds, sent to [facility] for possible admission for orbital cellulitis - [...] MD and Jaime Aggarwal MD Normal [facility] Heavy Equipment Field Mechanic Authentication Interface Message Text Pt states that she seeing double with both eyes open The images are vertical, one on top of the other. It doesn't happen all day. It comes and goes. VA: OD cc: 20/30+3 OS:cc: 20/40-2 Ph: 20/25-1 Pupil OU 3/round/minimal/none EOM: Full CVF OU: Full IOP OD: 11 OS:08 Normal [facility] VANCOMYCIN TROUGHon 10-21-19 23 VANC TR 16.6 ug/mL Normal 10.0-20.0 [facility] Comment on above: Performed By: #### V ANC TR ####S PATHOLOGY [id number] [place], BASIC METABOLIC PANELon 09-29 Anion gap [Moles/Vol] 11 mmol/L Normal 10-20 [facility] Comment on above: Performed By: #### C H8 #### S PATHOLOGY LABORATORY [address] [place], [place], Calcium [Mass/Vol] 9.4 mg/dL Normal 8.4-10.4 [facility] Comment on above: Performed By: #### C H8 #### S PATHOLOGY LABORATORY [address] [place], [place], Chloride [Moles/Vol] 102 mmol/L Normal 97-111 [facility] Comment on above: Performed By: #### C H8 #### [facility] [address] [place], [place], CO2 [Moles/Vol] 28 mmol/L Normal 21-30 [facility] Comment on above: Performed By: #### C H8 #### S PATHOLOGY LABORATORY [address] [place], [place], Creatinine [Mass/Vol] 0.56 mg/dL Normal 0.50-1.10 [facility] Comment on above: Performed By: #### C H8 #### S PATHOLOGY LABORATORY [address], [place], ESTIMATED GFR (CKD-EPI) 105 mL/min/1.73sqm Normal [...] Inclusion of Race in Diagnosing Kidney Disease. [place] Journal of Kidney Diseases 2021;79(2):268-88.e1. 2. N Engl J Med 1 Vol. 385 Issue 19 Pages [phone] Performed By: #### C H8 #### S PATHOLOGY LABORATORY [address] [place], [place], Glucose [Mass/Vol] 96 mg/dL Normal 68-110 [facility] Comment on above: Performed By: #### C H8 #### S PATHOLOGY LABORATORY [address], [place], Potassium [Moles/Vol] 4.3 mmol/L Normal 3.3-5.3 [facility] Comment on above: Performed By: #### C H8 #### S PATHOLOGY LABORATORY [address] [place], [place], Sodium [Moles/Vol] 137 mmol/L Normal 135-148 The [facility] Comment on above: Performed By: #### C H8 #### S PATHOLOGY LABORATORY [address] [place], [place], Urea nitrogen [Mass/Vol] 10 mg/dL Normal 8-22 [facility] Comment on above: Performed By: #### C H8 #### S PATHOLOGY LABORATORY [address] [place], [place], CBC WITH DIFFERENTIALon 09-29 Basophils (Bld) [#/Vol] 0.19 10*3/uL Normal 0.00-0.20 [facility] Comment on above: Performed By: #### C OVID19 #### [facility] [address] [place], [place], Basophils/100 WBC (Bld) 1.3 % Normal <=1.9 [facility] Comment on above: Performed By: #### C OVID19 #### [facility] [address] [place], [place], Eosinophils (Bld) [#/Vol] 0.52 10*3/uL Normal 0.00-0.70 [facility] Comment on above: Performed By: #### C OVID19 #### [facility] [address] [place], [place], Eosinophils/100 WBC (Bld) 3.5 % Normal 0.1-4.0 [facility] Comment on above: Performed By: #### C OVID19 #### [facility] [address] [place] [address], Erythrocyte distribution width (RBC) [Ratio] 14.0 % Normal 11.5-14.5 [facility] Comment on above: Performed By: #### C OVID19 #### [facility] [address] [place] [address], Hematocrit (Bld) [Volume fraction] 37.4 % Normal 36.0-46.0 [facility] Comment on above: Performed By: #### C OVID19 #### [facility] [address] [place], [place], Hemoglobin (Bld) [Mass/Vol] 12.4 g/dL Normal 12.0-15.0 The [facility] Comment on above: Performed By: #### C OVID19 #### [facility] [address] [place], [place], Lymphocytes (Bld) [#/Vol] 2.87 10*3/uL Normal 1.00-4.80 The [facility] Comment on above: Performed By: #### C OVID19 #### [facility] [address] [place], [place], Lymphocytes/100 WBC (Bld) 19.5 % Low 24.0-44.0 The [facility] Comment on above: Performed By: #### C OVID19 #### [facility] [address] [place] [address], MCH (RBC) [Entitic mass] 28.1 pg Normal 26.0-34.0 The [facility] Comment on above: Performed By: #### C OVID19 #### [facility] [address] [place] [address], MCHC (RBC) [Mass/Vol] 33.2 g/dL Normal 32.0-35.9 The [facility] Comment on above: Performed By: #### C OVID19 #### [facility] [address] [place] [address], MCV (RBC) [Entitic vol] 85 fL Normal 80-100 T [facility] Comment on above: Performed By: #### C OVID19 #### [facility] [address] [place] [address], MONOCYTE DISTRIBUTION WIDTH 19 Normal <=20 The [facility] Comment on above: Performed By: #### C OVID19 #### [facility] [address] [place] [address], Monocytes (Bld) [#/Vol] 1.30 10*3/uL High 0.20-1.00 The [facility] Comment on above: Performed By: #### C OVID19 #### [facility] [address] [place], [place], Monocytes/100 WBC (Bld) 8.8 % Normal 2.0-11.0 [facility] Comment on above: Performed By: #### C OVID19 #### [facility] [address] [place] [address], Neutrophils (Bld) [#/Vol] 9.87 10*3/uL High 1.50-8.00 The [facility] Comment on above: Performed By: #### C OVID19 #### [facility] [address] [place], Neutrophils/100 WBC (Bld) 66.9 % Normal 31.0-76.0 [facility] Comment on above: Performed By: #### C OVID19 #### [facility] [address] [place], Platelet mean volume (Bld) [Entitic vol] 8.1 fL Normal 7.5-11.2 [facility] Comment on above: Performed By: #### C OVID19 #### [facility] [address] [place], Platelets (Bld) [#/Vol] 359 10*3/uL Normal 150-400 [facility] Comment on above: Performed By: #### C OVID19 #### [facility] [address] [place], RBC (Bld) [#/Vol] 4.41 10*6/uL Normal 4.00-5.20 [facility] Comment on above: Performed By: #### C OVID19 #### [facility] [address] [place], WBC (Bld) [#/Vol] 14.8 10*3/uL High 4.5-11.5 [facility] Comment on above: Performed By: #### C OVID19 #### [facility] [address] [place], [place], CT CHEST W/O CONTRASTon 09-29 CT [...] risk, a follow-up CHEST W/O CONTRAST (code: [id number]) is optional at 12 months. 4. Severe coronary artery calcifications. Mitral annular calcification. MACRO: None Normal [facility] 10-20-2022 Heavy Equipment Field Mechanic Authentication Interface Message Text Attestation signed by [...] was started on clindamycin yesterday in the [place] [facility] with improvement in her symptoms. She [...] sinus. Other Studies/Information: I personally reviewed the independent marketing consultant notes or primary team notes as [...] Head AND Neck Surgery ENT Team Pager: [phone] Normal The [facility] Provider Noteson 10-20-19 Heavy Equipment Field Mechanic Authentication Interface Message Text ENT and med [...] evaluated, recommend admission for IV abx, further [id number] as delineated in their note. No indication for biopsy at this time. Will repage team 7 med and update. Janeth Kamara MD Normal [facility] Heavy Equipment Field Mechanic Authentication Interface Message Text EMERGENCY DEPARTMENT - VISIT NOTE ------- HISTORY OF PRESENT ILLNESS --- Chief Complaint Patient presents with Eye pain Transfer from osh for R eye cellulitis Bmet: not needed - patient preferred language is Nepalese. The history is provided by the Patient. [...] beds available at OSH and transferred to [facility] for [facility]. Currently on clindamycin. Morphine prior [...] incorporated. Review of External (Non- ED) Notes: [facility] ED notes reviewed and show Intake [...] days prior by Dr. 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 FRONT OFFICE SECRETARY labs with +WBC no shift. Pain treated with morphine/zofran. (more content not included)... Normal [facility] Influenza virus A and B and SARS-CoV-2 (COVID-19) Ag panel - Upper respiratory specimOrdered By: Dr. Dykes on 10-20-2022 SARS-CoV-2 (COVID-19) RNA KANDY+probe Ql (Resp) [facility] Progress Noteson 10-20-2022 Heavy Equipment Field Mechanic Authentication Interface Message Text Pharmacokinetic Dosing Service - VANCOMYCIN Initial Dosing Note Name: Gracie Banuelso Age:[age] year old Gender: female Ht: Data Unavailable Wt: no weight Indication: Central Nervous System (GATE ATTENDANT) Desired Ranges: 15-20 Day of therapy: 1 Assessment and Recommendations: 10/20/22 SSHEPHERD1 - Day 1: Central Nervous System (GATE ATTENDANT); Renal function: stable; ; Maintenance dose: 20 [...] (Unknown ideal weight.) Culture(s): PENDING CHRISTIANE ROTHMAN [facility] - Department of Pharmacy Services Normal [facility] Heavy Equipment Field Mechanic Authentication Interface Message Text New consult from [...] PGY-[address] Truong Voss [facility] Telephone Encounteron 2022 Heavy Equipment Field Mechanic Authentication Interface Message Text I was called by [facility] regarding a transfer from [place] [facility]. That facility is requesting transfer because [...] 13, ESR/CRP elevated. Discussed with provider at [place] ED, advised they should discuss case with ophthalmology as patient may benefit from ED to ED transfer rather than direct admission to medicine for earlier ophthalmology evaluation. Patient is not accepted to medicine at this time, 5:18 AM 10/20/22. Jeffy Garner MD Normal [facility] Absolute lymphocyte countOrd ered By: Dr. Dykes on 10-19-2022 Lymphocytes Auto (Unsp spec) [#/Vol] 3.28 10*3/uL 0.83-4.51 [facility] Basophil percentageOrdered B y: Dr. Dykes on 10-19-2022 Basophils/100 WBC (Bld) 0.8 % 0-1 [facility] Chloride [Moles/Vol] 107 mmol/L 98-107 [facility] Eosinophils/100 WBC (Bld) 4.4 % 0-5 [facility] Glucose [Mass/Vol] 97 mg/dL 74-106 [facility] Neutrophils (Bld) [#/Vol] 8.8 10*3/uL 2.0-7.7 [facility] Neutrophils/100 WBC (Bld) 63.4 % 47-70 [facility] Potassium [Moles/Vol] 3.8 mmol/L 3.5-5.1 [facility] Sodium [Moles/Vol] 137 mmol/L 136-145 [facility] WBC (Bld) [#/Vol] 13.9 10*3/uL 4.4-11.0 [facility] Blood erythrocytes count (nu mber/volume)Ordered By: Dr. Dykes on 10-19-2022 RBC (Bld) [#/Vol] 4.87 10*6/uL 4.2-5.4 [facility] Blood hemoglobin measurement (mass/volume)Ordered By: Dr. Dykes on 10-19-2022 Hemoglobin (Bld) [Mass/Vol] 13.6 g/dL 12.0-15.0 [facility] Blood lymphocytes/100 leukoc ytesOrdered By: Dr. Dykes on 10-19-2022 Lymphocytes/100 WBC (Bld) 23.6 % 19-41 [facility] Blood monocytes/100 leukocyt esOrdered By: Dr. Dykes on 10-19-2022 Monocytes/100 WBC (Bld) 7.1 % 0-10 [facility] Blood platelet mean volumeOr dered By: Dr. Dykes on 10-19-2022 Platelet mean volume (Bld) [Entitic vol] 9.6 fL 6.2-12.0 [facility] Determination of erythrocyte mean corpuscular volume (MCV)Ordered By: Dr. Dykes on 10-19-2022 MCV (RBC) [Entitic vol] 85.0 fL 81-99 [facility] Erythrocyte sedimentation ra teOrdered By: Dr. Dykes on 10-19-2022 ESR (Bld) [Velocity] 75 mm[facility]h [facility] Auto (Bld) [Volum e fraction]Ordered By: Dr. Dykes on 10-19-2022 Hematocrit (Bld) [Volume fraction] 41.4 % 37-47 [facility] Influenza virus A and B and SARS-CoV-2 (COVID-19) Ag panel - Upper respiratory specimOrdered By: Dr. Dykes on 10-19-2022 SARS-CoV-2 (COVID-19) RNA KANDY+probe Ql (Resp) [facility] - Chemistry and C hemistry - challengeOrdered By: Dr. Dykes on 10-19-2022 CO2 [Moles/Vol] 26.0 mmol/L 21.0-32.0 [facility] Urea nitrogen/Creatinine [Mass ratio] 11.3 mg/mg 10-20 [facility] - Hematology and Cell countsOrdered By: Dr. Dykes on 10-19-2022 Erythrocyte distribution width (RBC) [Entitic vol] 41.5 fL 35.1-43.9 [facility] Erythrocyte distribution width (RBC) [Ratio] 13.2 % 11.6-14.6 [facility] Immature granulocytes/100 WBC (Bld) 0.700 % 0.0-0.9 [facility] Comment on above: IG% - Immature Granu locytes (promyelocytes, myelocytes and metamyelocytes) > 1% indicates that a LEFT SHIFT is Present. MCH (RBC) [Entitic mass] 27.9 pg 27.0-32.0 [facility] Nucleated RBC/100 WBC (Bld) [Ratio] 0 % 0-5 [facility] MCHC Auto (RBC) [Mass/Vol]Or dered By: Dr. Dykes on 10-19-2022 MCHC (RBC) [Mass/Vol] 32.9 g/dL 32-36 [facility] No Panel InformationOrdered By: Dr. Dykes on 10-19-2022 Estimated Creatinine Clearance Calc 80.82 ml/min [facility] Estimated GFR (MDRD) Amer 127 mL/min >60 [facility] Comment on above: GFR Calc Estimated GFR (MDRD) Non-Af Amer 105 mL/min >60 [facility] Comment on above: Non- GFR Calc Platelets bldOrdered By: Dr. Dykes on 10-19-2022 Platelets (Bld) [#/Vol] 384 10*3/uL 150-450 [facility] Serum or plasma C reactive p rotein measurement (mass/volume)Ordered By: Dr. Dykes on 10-19-2022 CRP [Mass/Vol] 42.60 mg/L 0.0-3.0 [facility] Comment on above: C-Reactive Protein ( CRP) provides useful information for thediagnosis, therapy and monitoring of inflammatory processesand associated diseases. For the evaluation of Relative Riskfor Cardiovascular Disease, a High Sensitivity CRP (HSCRP)should be ordered. Serum or plasma calcium esthela urement (mass/volume)Ordered By: Dr. Dykes on 10-19-2022 Calcium [Mass/Vol] 9.5 mg/dL 8.5-10.1 [facility] Serum or plasma creatinine m easurement (mass/volume)Ordered By: Dr. Dykes on 10-19-2022 Creatinine [Mass/Vol] 0.62 mg/dL 0.55-1.02 [facility] Comment on above: The validity of the calculated GFR & GFRAA in patients over 70 years has not been determined. Clinical correlation is essential. Serum or plasma urea nitroge n measurement (mass/volume)Ordered By: Dr. Dykes on 10-19-2022 Urea nitrogen [Mass/Vol] 7 mg/dL 7-18 [facility] Thin prep Papanicolaou smear with manual screeningOrdered By: Dr. Dykes on 10-19-2022 Thin prep Papanicolaou smear with manual screening 4 5-15 [facility] - Microbiology an d Antimicrobial susceptibilityOrdered By: Dr. Handy on 08-28-2022 Bacteria identified Cx Nom (Bld) No growth in 5 days. [facility] Culture, urineOrdered By: Dr Max Handy on 08-24-2022 Bacteria identified Cx Nom (U) Positive [facility] Absolute lymphocyte countOrd ered By: Dr. Handy on 08-22-2022 Lymphocytes Auto (Unsp spec) [#/Vol] 2.04 10*3/uL 0.83-4.51 [facility] Basophil percentageOrdered B y: Dr. Handy on 08-22-2022 Basophil percentage 0 SEEN /hpf 0-5 [facility] Basophils/100 WBC (Bld) 0.3 % 0-1 [facility] Bilirubin [Mass/Vol] 0.20 mg/dL 0.20-1.00 [facility] Comment on above: For patients on eltr ombopag therapy, use of Dimension [place] TBIL is not recommended. Chloride [Moles/Vol] 95 mmol/L 98-107 [facility] Eosinophils/100 WBC (Bld) 0.6 % 0-5 [facility] Glucose [Mass/Vol] 115 mg/dL 74-106 [facility] Comment on above: Fasting Glucose resu lt from 100 to 125 mg/dL suggests IMPAIRED HOMEOSTASIS per A.D.A. criteria. Lactate [Moles/Vol] 0.7 mmol/L 0.4-2.0 [facility] Neutrophils (Bld) [#/Vol] 6.4 10*3/uL 2.0-7.7 [facility] Neutrophils/100 WBC (Bld) 66.3 % 47-70 [facility] Potassium [Moles/Vol] 3.9 mmol/L 3.5-5.1 [facility] Protein [Mass/Vol] 7.5 g/dL 6.4-8.2 [facility] Sodium [Moles/Vol] 131 mmol/L 136-145 [facility] WBC (Bld) [#/Vol] 9.6 10*3/uL 4.4-11.0 [facility] Bilirubin Test strip Ql (U)O rdered By: Dr. Handy on 08-22-2022 Bilirubin Ql (U) Negative Negative [facility] Blood erythrocytes count (nu mber/volume)Ordered By: Dr. Handy on 08-22-2022 RBC (Bld) [#/Vol] 5.09 10*6/uL 4.2-5.4 [facility] Blood hemoglobin measurement (mass/volume)Ordered By: Dr. Handy on 08-22-2022 Hemoglobin (Bld) [Mass/Vol] 15.2 g/dL 12.0-15.0 [facility] Blood lymphocytes/100 leukoc ytesOrdered By: Dr. Handy on 08-22-2022 Lymphocytes/100 WBC (Bld) 21.2 % 19-41 [facility] Blood monocytes/100 leukocyt esOrdered By: Dr. Handy on 08-22-2022 Monocytes/100 WBC (Bld) 11.3 % 0-10 [facility] Blood platelet mean volumeOr dered By: Dr. Handy on 08-22-2022 Platelet mean volume (Bld) [Entitic vol] 10.8 fL 6.2-12.0 [facility] Determination of erythrocyte mean corpuscular volume (MCV)Ordered By: Dr. Handy on 08-22-2022 MCV (RBC) [Entitic vol] 86.1 fL 81-99 [facility] Hematocrit Auto (Bld) [Volum e fraction]Ordered By: Dr. Handy on 08-22-2022 Hematocrit (Bld) [Volume fraction] 43.8 % 37-47 [facility] INR in Blood by Coagulation assayOrdered By: Dr. Handy on 08-22-2022 INR Coag (Bld) [Relative time] 0.9 {INR} [facility] Influenza virus A and B and SARS-CoV-2 (COVID-19) Ag panel - Upper respiratory specimOrdered By: Dr. Handy on 08-22-2022 SARS-CoV-2 (COVID-19) RNA KANDY+probe Ql (Resp) [facility] Ketones Test strip Ql (U)Ord ered By: Dr. Handy on 08-22-2022 Ketones Ql (U) Negative Negative [facility] - Chemistry and C hemistry - challengeOrdered By: Dr. Handy on 08-22-2022 ALP [Catalytic activity/Vol] 108 U/L 45-117 [facility] ALT [Catalytic activity/Vol] 21 U/L 13-56 [facility] CO2 [Moles/Vol] 30.0 mmol/L 21.0-32.0 [facility] Globulin (S) [Mass/Vol] 4.1 g/dL 2.2-4.2 [facility] Urea nitrogen/Creatinine [Mass ratio] 15.0 mg/mg 10-20 [facility] - CoagulationOrde red By: Dr. Handy on 08-22-2022 aPTT Coag (Bld) [Time] 28.9 s 24.1-36.2 [facility] PT Coag (PPP) [Time] 12.3 s 11.7-14.9 [facility] - Hematology and Cell countsOrdered By: Dr. Handy on 08-22-2022 Erythrocyte distribution width (RBC) [Entitic vol] 42.4 fL 35.1-43.9 [facility] Erythrocyte distribution width (RBC) [Ratio] 13.4 % 11.6-14.6 [facility] Immature granulocytes/100 WBC (Bld) 0.300 % 0.0-0.9 [facility] Comment on above: IG% - Immature Granu locytes (promyelocytes, myelocytes and metamyelocytes) > 1% indicates that a LEFT SHIFT is Present. MCH (RBC) [Entitic mass] 29.9 pg 27.0-32.0 [facility] Nucleated RBC/100 WBC (Bld) [Ratio] 0 % 0-5 [facility] MCHC Auto (RBC) [Mass/Vol]Or dered By: Dr. Handy on 08-22-2022 MCHC (RBC) [Mass/Vol] 34.7 g/dL 32-36 [facility] Mucus LM Ql (Urine sed)Order ed By: Dr. Handy on 08-22-2022 Mucus Ql (Urine sed) 0 SEEN /hpf [facility] Nitrite Test strip Ql (U)Ord ered By: Dr. Handy on 08-22-2022 Nitrite Ql (U) Negative Negative [facility] No Panel InformationOrdered By: Dr. Handy on 08-22-2022 Estimated Creatinine Clearance Calc 83.51 ml/min [facility] Estimated GFR (MDRD) Amer 132 mL/min >60 [facility] Comment on above: GFR Calc Estimated GFR (MDRD) Non-Af Amer 109 mL/min >60 [facility] Comment on above: Non- GFR Calc Troponin I High Sensitivity 25 pg/mL 3.0-54.0 [facility] Comment on above: Please Note: New [place] t Units and Gender Specific Reference Ranges. For more information see Policy Stat Procedure [place] High Sensitivity Troponin (TNIH) and attachments. Platelets bldOrdered By: Dr. Handy on 08-22-2022 Platelets (Bld) [#/Vol] 226 10*3/uL 150-450 [facility] Protein Test strip Ql (U)Ord ered By: Dr. Handy on 08-22-2022 Protein Ql (U) Negative Negative [facility] RSV Ag EIAOrdered By: Dr. Kam lou on 08-22-2022 RSV Ag Immune stain Ql (Tiss) [facility] Serum or plasma albumin esthela urement (mass/volume)Ordered By: Dr. Handy on 08-22-2022 Albumin [Mass/Vol] 3.4 g/dL 3.2-5.0 [facility] Serum or plasma albumin/glob ulin mass ratioOrdered By: Dr. Handy on 08-22-2022 Albumin/Globulin [Mass ratio] 0.8 {ratio} 0.9-2.4 [facility] Serum or plasma calcium esthela urement (mass/volume)Ordered By: Dr. Handy on 08-22-2022 Calcium [Mass/Vol] 8.7 mg/dL 8.5-10.1 [facility] Serum or plasma creatinine m easurement (mass/volume)Ordered By: Dr. Handy on 08-22-2022 Creatinine [Mass/Vol] 0.60 mg/dL 0.55-1.02 [facility] Comment on above: The validity of the calculated GFR & GFRAA in patients over 70 years has not been determined. Clinical correlation is essential. Serum or plasma urea nitroge n measurement (mass/volume)Ordered By: Dr. Handy on 08-22-2022 Urea nitrogen [Mass/Vol] 9 mg/dL 7-18 [facility] Squamous epithelial cells de tection in urine sediment by light microscopyOrdered By: Dr. Handy on 08-22-2022 Epithelial cells.squamous LM Ql (Urine sed) 0-5 SEEN /hpf 5-10 [facility] Thin prep Papanicolaou smear with manual screeningOrdered By: Dr. Handy on 08-22-2022 Thin prep Papanicolaou smear with manual screening 17 U/L 15-37 [facility] Thin prep Papanicolaou smear with manual screening 6 5-15 [facility] Urine blood detectionOrdered By: Dr. Handy on 08-22-2022 RBC Ql (U) Negative Negative [facility] RBC Ql (U) 0 SEEN /hpf 0-5 [facility] Urine clarityOrdered By: Dr. Handy on 08-22-2022 Clarity (U) Sl. Cloudy Clear [facility] Urine color determinationOrd ered By: Dr. Handy on 08-22-2022 Color (U) Yellow Yellow [facility] Urine glucose detectionOrder ed By: Dr. Handy on 08-22-2022 Glucose Ql (U) Normal mg/dl Normal [facility] Urine leukocyte esterase det ection by dipstickOrdered By: Dr. Handy on 08-22-2022 Leukocyte esterase Test strip Ql (U) Negative Negative [facility] Urine pHOrdered By: Dr. Rashad lay on 08-22-2022 pH (U) 6.5 [pH] 5.0 - 8.0 [facility] Urine sediment bacteria coun t by microscopy (number/high power field)Ordered By: Dr. Handy on 08-22-2022 Bacteria LM.HPF (Urine sed) [#/Area] RARE /hpf None Seen [facility] Urine specific gravity measu rementOrdered By: Dr. Handy on 08-22-2022 Specific gravity (U) [Rel density] 1.005 1.002-1.030 [facility] Urobilinogen Auto test strip Ql (U)Ordered By: Dr. Handy on 08-22-2022 Urobilinogen Ql (U) Normal mg/dl Normal [facility] Absolute lymphocyte counton 03-03-2022 Lymphocytes Auto (Unsp spec) [#/Vol] 2.54 10*3/uL 0.83-4.51 [facility] Work Phone: Basophil percentageon 2021 Basophils/100 WBC (Bld) 0.8 % 0-1 [facility] Work Phone: Chloride [Moles/Vol] 107 mmol/L 98-107 [facility] Work Phone: Eosinophils/100 WBC (Bld) 2.4 % 0-5 [facility] Work Phone: Glucose [Mass/Vol] 149 mg/dL 74-106 [facility] Work Phone: Comment on above: Fasting Glucose resu lt greater than or equal to 126 mg/dL suggests DIABETES MELLITUS per A.D.A. criteria. Neutrophils (Bld) [#/Vol] 7.8 10*3/uL 2.0-7.7 [facility] Work Phone: Neutrophils/100 WBC (Bld) 66.0 % 47-70 [facility] Work Phone: Potassium [Moles/Vol] 3.6 mmol/L 3.5-5.1 [facility] Work Phone: Sodium [Moles/Vol] 139 mmol/L 136-145 [facility] Work Phone: WBC (Bld) [#/Vol] 11.8 10*3/uL 4.4-11.0 [facility] Work Phone: Blood erythrocytes count (nu mber/volume)on 03-03-2022 RBC (Bld) [#/Vol] 4.79 10*6/uL 4.2-5.4 [facility] Work Phone: Blood hemoglobin measurement (mass/volume)on 03-03-2022 Hemoglobin (Bld) [Mass/Vol] 13.4 g/dL 12.0-15.0 [facility] Work Phone: Blood lymphocytes/100 leukoc yteson 03-03-2022 Lymphocytes/100 WBC (Bld) 21.6 % 19-41 [facility] Work Phone: Blood monocytes/100 leukocyt eson 03-03-2022 Monocytes/100 WBC (Bld) 8.4 % 0-10 [facility] Work Phone: [phone] Blood platelet mean volumeon 03-03-2022 Platelet mean volume (Bld) [Entitic vol] 10.4 fL 6.2-12.0 [facility] Work Phone: [phone] Determination of erythrocyte mean corpuscular volume (MCV)on 03-03-2022 MCV (RBC) [Entitic vol] 89.4 fL 81-99 [facility] Work Phone: [phone] Hematocrit Auto (Bld) [Volum e fraction]on 03-03-2022 Hematocrit (Bld) [Volume fraction] 42.8 % 37-47 [facility] Work Phone: [phone] Laboratory - Chemistry and C hemistry - challengeon 03-03-2022 CO2 [Moles/Vol] 27.0 mmol/L 21.0-32.0 [facility] Work Phone: [phone] Urea nitrogen/Creatinine [Mass ratio] 6.7 mg/mg 10-20 [facility] Work Phone: [phone] Laboratory - Hematology and Cell countson 03-03-2022 Erythrocyte distribution width (RBC) [Entitic vol] 45.1 fL 35.1-43.9 [facility] Work Phone: [phone] Erythrocyte distribution width (RBC) [Ratio] 13.8 % 11.6-14.6 [facility] Work Phone: [phone] Immature granulocytes/100 WBC (Bld) 0.800 % 0.0-0.9 [facility] Work Phone: [phone] Comment on above: IG% - Immature Granu locytes (promyelocytes, myelocytes and metamyelocytes) > 1% indicates that a LEFT SHIFT is Present. MCH (RBC) [Entitic mass] 28.0 pg 27.0-32.0 [facility] Work Phone: [phone] Nucleated RBC/100 WBC (Bld) [Ratio] 0 % 0-5 [facility] Work Phone: [phone] MCHC Auto (RBC) [Mass/Vol]on 03-03-2022 MCHC (RBC) [Mass/Vol] 31.3 g/dL 32-36 [facility] Work Phone: No Panel Informationon 03-03 Estimated Creatinine Clearance Calc 84.54 ml/min [facility] Work Phone: Estimated GFR (MDRD) Amer 131 mL/min >60 [facility] Work Phone: Comment on above: GFR Calc Estimated GFR (MDRD) Non-Af Amer 109 mL/min >60 [facility] Work Phone: Comment on above: Non- GFR Calc SARS-CoV-2 & FLU Antigen (Rapid) [facility] Work Phone: Troponin I High Sensitivity 14 pg/mL 3.0-54.0 [facility] Work Phone: Comment on above: Please Note: [place] t Units and Gender Specific Reference Ranges. For more information see Policy Stat Procedure [place] High Sensitivity Troponin (TNIH) and attachments. Platelets bldon 03-03-2022 Platelets (Bld) [#/Vol] 251 10*3/uL 150-450 [facility] Work Phone: Serum or plasma calcium esthela urement (mass/volume)on 03-03-2022 Calcium [Mass/Vol] 9.0 mg/dL 8.5-10.1 [facility] Work Phone: Serum or plasma creatinine m easurement (mass/volume)on 03-03-2022 Creatinine [Mass/Vol] 0.60 mg/dL 0.55-1.02 [facility] Work Phone: Comment on above: The validity of the calculated GFR & GFRAA in patients over 70 years has not been determined. Clinical correlation is essential. Serum or plasma urea nitroge n measurement (mass/volume)on 03-03-2022 Urea nitrogen [Mass/Vol] 4 mg/dL 7-18 [facility] Work Phone: Thin prep Papanicolaou smear with manual screeningon 03-03-2022 Thin prep Papanicolaou smear with manual screening 5 5-15 [facility] Work Phone: ANES Pily 12-05-2019 ANES POST HNO ID: [id number] Author: Mark Saab Service: Anesthesiology Author Type: [...] 05, 2019 TIME: 1:36 PM PAGER/CONTACT #: [phone] [facility] ANES PREOPon 12-05-2019 ANES PREOP HNO ID: [id number] Author: Mark Saab Service: Anesthesiology Author Type: [...] Stage 2 moderate COPD by GOLD classification ([facility]) 2018 - Tobacco use - Unspecified hemorrhoids [...] File Prior to Encounter Medication Sig - [id number]-hpuengyx-npycouf (CREON 24) 24,000-76,000 -120,000 unit cpDR Take [...] obtained within 48 hours of Surgery/Procedure. SIGNATURE: Mrak Saab MD PATIENT NAME: Gracie Banuelos DATE: December 05, 2019 TIME: 7:47 AM CSN: [id number] Normal [facility] Glucose Meteron 12-05-2019 Glucose [Mass/Vol] 107 mg/dL High 70-99 [facility] Comment on above: Result Comment: SARWAT Sloan OTIFIED Performed By: #### G LMET #### [place] [address] OPERATIVE NOon 12-05-2019 OPERATIVE NO HNO ID: [id number] Author: Claudia Odonnell Service: Gastroenterology Author Type: Physician Type: Operative Report Filed: 12/05/2019 9:08 AM Note Text: OPERATIVE/PROCEDURE REPORT LOG ID: [id number] Surgery/Procedure Date: 12/05/2019 Incision/Procedure Start Time: 8:27 AM Incision Close/Procedure End Time: 8:45 AM Surgeon(s)/Proceduralis t(s) and Insole Doubler(s): Surgeon(s) and Role: * Claudia Odonnell - [...] December 05, 2019 TIME: 8:46 AM PAGER/CONTACT #:[phone] [facility] PROGRESSon 12-05-2019 PROGRESS HNO ID: [id number] Author: Juan Everett Service: General Surgery Author Type: Nurse Practitioner Type: Progress Notes Filed: 12/05/2019 7:17 AM Note Text: HANDP completed by Dr. Claudia Odonnell on 11/09/2019. Orders for fluid and IV in Epic. Order for BS check in pre op. Last few BMPs- low glucose. Pt denies history of hypoglycemia. [facility] PT EDon 12-05-2019 PT ED HNO ID: [id number] Author: Ani MunroeRn) SARWAT Ortiz Service: Nursing [...] Signed By: Ani Ortiz RN In Department: [facility] PT ED HNO ID: [id number] Author: Gabby MunroeRnBlanca Walker RN Service: Nursing [...] EUS Patient Name: [facility]ac[facility] Banuelos [facility] To Learn Motivation To Learn: Interested [...] Surgical Tissue Exam Test performed at [place] [address] NAME: GRACIE BANUELOS REQUESTING: CLAUDIA ODONNELL FINAL [...] 13:24 PRINTED: 12/07/2019 Page 1 of 1 [facility] Comment on above: Performed By: #### S URG #### [place] [address] HOSPon 11-10-2019 HOSP Patient:Gracie Banuelos MRN: Height:5' 3(1.6 m) Weight:111 lb (50.349 kg) Outpatient Medications as of 12/05/19: zczzij-jadtzefe-svewylh (CREON 24) 24,000-76,000 -120,000 unit cpDR pantoprazole [...] incontinence, stress female [N39.3] HPV test positive [[id number]] Pulmonary emphysema (HCC) [J43.9] Irritable bowel syndrome [...] basenames: K,HCT Progress Notes (): Juan Everett APRN.BOX TOE [employer]KER 12/05/2019 7:17 AM Addendum HANDP completed by [...] EUS Patient Name: Gracie Banuelos [place] Readiness To Learn Motivation To Learn: Interested [...] Stage 2 moderate COPD by GOLD classification ([facility]) 2018 - Tobacco use - Unspecified hemorrhoids [...] File Prior to Encounter Medication Sig - kjystz-poibfkfp-bovhzqc (CREON 24) 24,000-76,000 -120,000 unit cpDR Take [...] mL/hr at 12/05/19 0727 30 mL/hr at 12/05/19726 Allergies: ALLERGIES Allergen [...] December 05, 2019 TIME: 7:47 AM CSN: [id number] Progress Notes (MCLAREN FLINT): Claudia Odonnell MD 11/09/2019 3:06 PM Signed [...] nausea, vomiting, loss of appetite, hematemesis, bleeding VT, unexplained weight loss, diarrhea, tenesmus, nocturnal diarrhea. [...] Stage 2 moderate COPD by GOLD classification ([facility]) 2018 - Tobacco use - Unspecified hemorrhoids [...] 11/09/19 TIME: 2:32 PM Previous Version Normal [facility] Pulmonary Functiono n 06-19-2017 [place] Pulmonary Function Normal [facility] ([place]) No Panel Information SARS-CoV-2 & FLU Antigen (Rapid) [facility] Work Phone: Vital Signs Date Time Vital Sign Value Performing Clinician Facility 04-25-2025 15:59-0400 Body mass index (BMI) [Ratio] 20.47 kg/m2 Misbah Elkins MD Work Phone: [facility] 04-25-2025 15:59-0400 Body weight 55.79 kg Misbah Elkins MD Work Phone: [facility] 04-25-2025 15:59-0400 Diastolic blood pressure 84 mm[Hg] Misbah Elkins MD Work Phone: [facility] 04-25-2025 15:59-0400 Heart rate 104 /min Misbah Elkins MD Work Phone: [facility] 04-25-2025 15:59-0400 Respiratory rate 18 /min Misbah Elkins MD Work Phone: [facility] 04-25-2025 15:59-0400 SaO2% (BldA) [Mass fraction] 92 % Misbah Elkins MD Work Phone: [facility] Comment on above: 5 L/min 04-25-2025 15:59-0400 Systolic blood pressure 116 mm[Hg] Misbah Elkins MD Work Phone: [phone] [place] [address] 04-19-2025 12:55-0400 Heart rate 81 /min Dr. Misbah Elkins MD Work Phone: [phone] [place] [address] 04-19-2025 12:55-0400 Respiratory rate 18 /min Dr. Misbah Elkins MD Work Phone: [phone] [place] [address] 04-19-2025 08:40-0400 Body temperature 98.8 [degF] Dr. Misbah Elkins MD Work Phone: [phone] [place] [address] 04-19-2025 08:40-0400 Diastolic blood pressure 77 mm[Hg] Dr. Misbah Elkins MD Work Phone: [phone] [place] [address] 04-19-2025 08:40-0400 Inhaled oxygen flow rate 4 L/min Dr. Misbah Elkins MD Work Phone: [phone] [place] [address] 04-19-2025 08:40-0400 SaO2% (BldA) [Mass fraction] 97 % Dr. Misbah Elkins MD Work Phone: [phone] [place] [address] 04-19-2025 08:40-0400 Systolic blood pressure 102 mm[Hg] Dr. Misbah Elkins MD Work Phone: [phone] [place] [address] 04-19-2025 07:56-0400 Body mass index (BMI) [Ratio] 23.7 kg/m2 Dr. Misbah Elkins MD Work Phone: [phone] [place] [address] 04-19-2025 07:56-0400 Body weight 60.[address] Misbah Elkins MD Work Phone: [phone] [place] [address] 04-17-2025 14:06-0400 Body height 160.[address] Misbah Elkins MD Work Phone: [phone] [place] [address] 04-16-2025 00:57-0400 Body temperature 98.7 [degF] Dr. Misbah Elkins MD Work Phone: [phone] [place] [address] 04-16-2025 00:57-0400 Diastolic blood pressure 67 mm[Hg] Dr. Misbah Elkins MD Work Phone: [phone] [place] [address] 04-16-2025 00:57-0400 Heart rate 91 /min Dr. Misbah Elkins MD Work Phone: [phone] [place] [address] 04-16-2025 00:57-0400 Inhaled oxygen flow rate 4 L/min Dr. Misbah Elkins MD Work Phone: [phone] [place] [address] 04-16-2025 00:57-0400 Respiratory rate 18 /min Dr. Misbah Elkins MD Work Phone: [phone] [place] [address] 04-16-2025 00:57-0400 SaO2% (BldA) [Mass fraction] 100 % Dr. Misbah Elkins MD Work Phone: [phone] [place] [address] 04-16-2025 00:57-0400 Systolic blood pressure 168 mm[Hg] Dr. Misbah Elkins MD Work Phone: [phone] [place] [address] 04-15-2025 22:49-0400 Body height 160.[address] Misbah Elkins MD Work Phone: [phone] [place] [address] 04-15-2025 22:49-0400 Body mass index (BMI) [Ratio] 22.4 kg/m2 Dr. Misbah Elkins MD Work Phone: [phone] [place] [address] 04-15-2025 22:49-0400 Body weight 57.[address] Misbah Elkins MD Work Phone: [phone] [place] [address] 04-10-2025 13:37-0400 Body mass index (BMI) [Ratio] 20.54 kg/m2 Nicolas Greer [employer] Work Phone: [phone] [place] [address] 04-10-2025 13:37-0400 Body weight 56 kg Nicolas Greer [employer] Work Phone: [phone] [place] [address] 04-10-2025 13:37-0400 Diastolic blood pressure 82 mm[Hg] Nicolas Greer APRN.GATE ATTENDANT Work Phone: 9(609)738-626738 [place] [address] 04-10-2025 13:37-0400 Heart rate 100 /min Nicolas Greer LEI MAKER.GATE ATTENDANT Work Phone: [facility] 04-10-2025 13:37-0400 Respiratory rate 16 /min Nicolas Greer LEI MAKER.GATE ATTENDANT Work Phone: [facility] 04-10-2025 13:37-0400 SaO2% (BldA) [Mass fraction] 99 % [facility].GATE ATTENDANT Work Phone: [facility] 04-10-2025 13:37-0400 Systolic blood pressure 102 mm[Hg] Nicolas Greer LEI MAKER.GATE ATTENDANT Work Phone: [facility] 04-10-2025 07:55-0400 Body height 160.[address] Misbah Elkins MD Work Phone: 6(923)943-234024 [place] [address] 04-10-2025 07:55-0400 Body mass index (BMI) [Ratio] 21.7 kg/m2 Dr. Misbah Elkins MD Work Phone: 1(768)933-436589 [place] [address] 04-10-2025 07:55-0400 Body temperature 97.4 [degF] Dr. Misbah Elkins MD Work Phone: 0(839)253-832824 [place] [address] 04-10-2025 07:55-0400 Body weight 55.[address] Misbah Elkins MD Work Phone: 9(216)464-200824 [place] [address] 04-10-2025 07:55-0400 Diastolic blood pressure 71 mm[Hg] Dr. Misbah Elkins MD Work Phone: 8(853)195-372124 [place] [address] 04-10-2025 07:55-0400 Heart rate 103 /min Dr. Misbah Elkins MD Work Phone: 6(006)336-450524 [place] [address] 04-10-2025 07:55-0400 Inhaled oxygen flow rate 3 L/min Dr. Misbah Elkins MD Work Phone: 1(712)778-557589 [place] [address] 04-10-2025 07:55-0400 Respiratory rate 16 /min Dr. Misbah Elkins MD Work Phone: 8(559)290-579589 [place] [address] 04-10-2025 07:55-0400 SaO2% (BldA) [Mass fraction] 95 % Dr. Misbah Elkins MD Work Phone: 0(020)941-630524 [place] [address] 04-10-2025 07:55-0400 Systolic blood pressure 101 mm[Hg] Dr. Misbah Elkins MD Work Phone: 6(267)185-547124 [place] [address] 03-15-2025 21:00-0400 Diastolic blood pressure 63 mm[Hg] Dr. Misbah Elkins MD Work Phone: 9(716)598-514224 [place] [address] 03-15-2025 21:00-0400 Heart rate 105 /min Dr. Misbah Elkins MD Work Phone: 4(636)552-833224 [place] [address] 03-15-2025 21:00-0400 Inhaled oxygen concentration 90 % Dr. Misbah Elkins MD Work Phone: 6(708)527-686824 [place] [address] 03-15-2025 21:00-0400 Respiratory rate 16 /min Dr. Misbah Elkins MD Work Phone: 1(182)721-371424 [place] [address] 03-15-2025 21:00-0400 SaO2% (BldA) [Mass fraction] 96 % Dr. Misbah Elkins MD Work Phone: 0(898)175-061924 [place] [address] 03-15-2025 21:00-0400 Systolic blood pressure 79 mm[Hg] Dr. Misbah Elkins MD Work Phone: 4(921)622-408324 [place] [address] 03-15-2025 12:00-0400 Body temperature 97.8 [degF] Dr. Misbah Elkins MD Work Phone: 8(945)713-436324 [place] [address] 03-15-2025 01:34-0400 Inhaled oxygen flow rate 60 L/min Dr. Misbah Elkins MD Work Phone: 4(914)642-452724 [place] [address] 03-14-2025 14:24-0400 Body height 160.[address] Misbah Elkins MD Work Phone: 5(950)343-100224 [place] [address] 03-14-2025 14:24-0400 Body weight [address] Misbah Elkins MD Work Phone: 4(962)904-573824 [place] [address] 03-14-2025 00:37-0400 Body mass index (BMI) [Ratio] 25 kg/m2 Dr. Misbah Elkins MD Work Phone: 3(881)755-362824 [place] [address] 03-13-2025 23:24-0400 Body temperature 98.7 [degF] Dr. Misbah Elkins MD Work Phone: 4(047)252-452124 [place] [address] 03-13-2025 23:24-0400 Diastolic blood pressure 61 mm[Hg] Dr. Misbah Elkins MD Work Phone: 9(076)602-324024 [place] [address] 03-13-2025 23:24-0400 Heart rate 106 /min Dr. Misbah Elkins MD Work Phone: 6(625)871-809124 [place] [address] 03-13-2025 23:24-0400 Respiratory rate 17 /min Dr. Misbah Elkins MD Work Phone: 1(513)803-323224 [place] [address] 03-13-2025 23:24-0400 SaO2% (BldA) [Mass fraction] 87 % Dr. Misbah Elkins MD Work Phone: 4(945)084-031924 [place] [address] 03-13-2025 23:24-0400 Systolic blood pressure 119 mm[Hg] Dr. Misbah Elkins MD Work Phone: 3(018)533-525724 [place] [address] 03-13-2025 23:00-0400 Inhaled oxygen flow rate 8 L/min Dr. Misbah Elkins MD Work Phone: 6(458)264-630524 [place] [address] 03-13-2025 11:02-0400 Body height 160.[address] Misbah Elkins MD Work Phone: 8(968)814-521924 [place] [address] 03-13-2025 11:02-0400 Body mass index (BMI) [Ratio] 23.3 kg/m2 Dr. Misbah Elkins MD Work Phone: 0(290)198-780124 [place] [address] 03-13-2025 11:02-0400 Body weight 59.[address] Misbah Elkins MD Work Phone: 7(562)849-069024 [place] [address] 03-10-2025 17:00-0400 Diastolic blood pressure 62 mm[Hg] Jane Farrell MD Work Phone: [facility] 03-10-2025 17:00-0400 Heart rate 88 /min Jane Farrell MD Work Phone: [facility] 03-10-2025 17:00-0400 Respiratory rate 18 /min Jane Farrell MD Work Phone: [facility] 03-10-2025 17:00-0400 SaO2% (BldA) [Mass fraction] 94 % Jane Farrell MD Work Phone: [facility] 03-10-2025 17:00-0400 Systolic blood pressure 94 mm[Hg] Jane Farrell MD Work Phone: [facility] 03-10-2025 15:20-0400 Body temperature 97.5 [degF] Jane Farrell MD Work Phone: [facility] 03-10-2025 12:26-0400 Body height 160 cm Jane Farrell MD Work Phone: [facility] 03-10-2025 12:26-0400 Body mass index (BMI) [Ratio] 23.03 kg/m2 Jane Farrell MD Work Phone: [facility] 03-10-2025 12:26-0400 Body weight 58.97 kg Jane Farrell MD Work Phone: [facility] 02-26-2025 15:48-0400 Body temperature 98.7 [degF] Dr. Misbah Elkins MD Work Phone: [facility] 02-26-2025 15:48-0400 Diastolic blood pressure 78 mm[Hg] Dr. Misbah Elkins MD Work Phone: [facility] 02-26-2025 15:48-0400 Heart rate 67 /min Dr. Misbah Elkins MD Work Phone: [facility] 02-26-2025 15:48-0400 Respiratory rate 12 /min Dr. Misbah Elkins MD Work Phone: [facility] 02-26-2025 15:48-0400 SaO2% (BldA) [Mass fraction] 94 % Dr. Misbah Elkins MD Work Phone: 6(262)591-077424 [place] [address] 02-26-2025 15:48-0400 Systolic blood pressure 145 mm[Hg] Dr. Misbah Elkins MD Work Phone: 4(298)429-631124 [place] [address] 02-26-2025 15:07-0400 Inhaled oxygen flow rate 5 L/min Dr. Misbah Elkins MD Work Phone: 2(788)747-831324 [place] [address] 02-26-2025 13:57-0400 Body height 160.[address] Misbah Elkins MD Work Phone: 0(098)047-888824 [place] [address] 02-26-2025 13:57-0400 Body mass index (BMI) [Ratio] 23.9 kg/m2 Dr. Misbah Elkins MD Work Phone: 7(295)161-625824 [place] [address] 02-26-2025 13:57-0400 Body weight 61.[address] Misbah Elkins MD Work Phone: 7(128)311-903424 [place] [address] 02-08-2025 08:20-0400 Body mass index (BMI) [Ratio] 23.7 kg/m2 Dr. Misbah Elkins MD Work Phone: 2(570)710-978724 [place] [address] 02-08-2025 08:20-0400 Body temperature 97.6 [degF] Dr. Misbah Elkins MD Work Phone: 6(115)364-445524 [place] [address] 02-08-2025 08:20-0400 Body weight 60.[address] Misbah Elkins MD Work Phone: 4(168)959-511924 [place] [address] 02-08-2025 08:20-0400 Diastolic blood pressure 67 mm[Hg] Dr. Misbah Elkins MD Work Phone: 1(938)925-877724 [place] [address] 02-08-2025 08:20-0400 Heart rate 87 /min Dr. Misbah Elkins MD Work Phone: 5(918)940-571324 [place] [address] 02-08-2025 08:20-0400 Inhaled oxygen flow rate 5 L/min Dr. Misbah Elkins MD Work Phone: 7(542)242-616024 [place] [address] 02-08-2025 08:20-0400 Respiratory rate 20 /min Dr. Misbah Elkins MD Work Phone: 9(031)615-740824 [place] [address] 02-08-2025 08:20-0400 SaO2% (BldA) [Mass fraction] 92 % Dr. Misbah Elkins MD Work Phone: 1(037)925-643724 [place] [address] 02-08-2025 08:20-0400 Systolic blood pressure 116 mm[Hg] Dr. Misbah Elkins MD Work Phone: 3(679)602-677924 [place] [address] 01-27-2025 12:55-0400 Diastolic blood pressure 76 mm[Hg] Dr. Misbah Elkins MD Work Phone: 1(257)055-032224 [place] [address] 01-27-2025 12:55-0400 Heart rate 93 /min Dr. Misbah Elkins MD Work Phone: 9(868)310-533924 [place] [address] 01-27-2025 12:55-0400 Respiratory rate 18 /min Dr. Misbah Elkins MD Work Phone: 4(944)477-255824 [place] [address] 01-27-2025 12:55-0400 SaO2% (BldA) [Mass fraction] 97 % Dr. Misbah Elkins MD Work Phone: 7(419)076-372024 [place] [address] 01-27-2025 12:55-0400 Systolic blood pressure 162 mm[Hg] Dr. Misbah Elkins MD Work Phone: 4(087)757-442024 [place] [address] 01-27-2025 12:00-0400 Body temperature 97.8 [degF] Dr. Misbah Elkins MD Work Phone: 3(092)939-542124 [place] [address] 01-27-2025 12:00-0400 Inhaled oxygen flow rate 5 L/min Dr. Misbah Elkins MD Work Phone: 7(007)260-163224 [place] [address] 01-27-2025 10:14-0400 Body height 160.[address] Misbah Elkins MD Work Phone: 1(800)600-031524 [place] [address] 01-27-2025 10:14-0400 Body mass index (BMI) [Ratio] 23.5 kg/m2 Dr. Misbah Elkins MD Work Phone: [facility] 01-27-2025 10:14-0400 Body weight 60.[address] Misbah Elkins MD Work Phone: [facility] 01-13-2025 10:51-0400 Body mass index (BMI) [Ratio] 24.45 kg/m2 Soila Older LEI MAKER.BOX TOE MAKER Work Phone: [facility] 01-13-2025 10:51-0400 Body weight 62.6 kg Soila Older LEI MAKER.BOX TOE MAKER Work Phone: [facility] 01-13-2025 10:51-0400 Diastolic blood pressure 60 mm[Hg] Soila Older LEI MAKER.BOX TOE MAKER Work Phone: [facility] 01-13-2025 10:51-0400 Heart rate 88 /min Soila Older LEI MAKER.BOX TOE MAKER Work Phone: [facility] 01-13-2025 10:51-0400 Respiratory rate 16 /min Soila Older LEI MAKER.BOX TOE MAKER Work Phone: [facility] 01-13-2025 10:51-0400 SaO2% (BldA) [Mass fraction] 85 % Soila Older LEI MAKER.BOX TOE MAKER Work Phone: [facility] 01-13-2025 10:51-0400 Systolic blood pressure 108 mm[Hg] Soila Older LEI MAKER.BOX TOE MAKER Work Phone: [facility] 01-01-2025 22:15-0400 Body temperature 97.9 [degF] Dr. Misbah Elkins MD Work Phone: [facility] 01-01-2025 22:15-0400 Diastolic blood pressure 70 mm[Hg] Dr. Misbah Elkins MD Work Phone: [facility] 01-01-2025 22:15-0400 Heart rate 108 /min Dr. Misbah Elkins MD Work Phone: [facility] 01-01-2025 22:15-0400 Respiratory rate 24 /min Dr. Misbah Elkins MD Work Phone: 6(478)079-198724 [place] [address] 01-01-2025 22:15-0400 SaO2% (BldA) [Mass fraction] 96 % Dr. Misbah Elkins MD Work Phone: 4(620)746-644024 [place] [address] 01-01-2025 22:15-0400 Systolic blood pressure 104 mm[Hg] Dr. Misbah Elkins MD Work Phone: 2(426)722-381224 [place] [address] 01-01-2025 21:01-0400 Inhaled oxygen flow rate 5 L/min Dr. Misbah Elkins MD Work Phone: 7(215)276-040924 [place] [address] 01-01-2025 20:52-0400 Body mass index (BMI) [Ratio] 24.7 kg/m2 Dr. Misbah Elkins MD Work Phone: 3(677)304-186224 [place] [address] 01-01-2025 20:52-0400 Body weight 63.[address] Misbah Elkins MD Work Phone: 3(796)626-307724 [place] [address] 01-01-2025 20:27-0400 Body height 160.[address] Misbah Elkins MD Work Phone: 1(057)622-530624 [place] [address] 12-24-2024 21:38-0400 Body temperature 97.8 [degF] Dr. Misbah Elkins MD Work Phone: 5(782)431-456024 [place] [address] 12-24-2024 21:38-0400 Diastolic blood pressure 89 mm[Hg] Dr. Misbah Elkins MD Work Phone: 8(333)829-879624 [place] [address] 12-24-2024 21:38-0400 Heart rate 98 /min Dr. Misbah Elkins MD Work Phone: 6(462)097-593624 [place] [address] 12-24-2024 21:38-0400 Respiratory rate 24 /min Dr. Misbah Elkins MD Work Phone: 7(428)272-595324 [place] [address] 12-24-2024 21:38-0400 SaO2% (BldA) [Mass fraction] 98 % Dr. Misbah Elkins MD Work Phone: 2(509)228-355324 [place] [address] 12-24-2024 21:38-0400 Systolic blood pressure 148 mm[Hg] Dr. Misbah Elkins MD Work Phone: 8(702)081-897424 [place] [address] 12-24-2024 20:46-0400 Inhaled oxygen flow rate 5 L/min Dr. Misbah Elkins MD Work Phone: 7(800)652-808224 [place] [address] 12-24-2024 19:39-0400 Body height 160.[address] Misbah Elkins MD Work Phone: 3(429)871-410924 [place] [address] 12-24-2024 19:39-0400 Body mass index (BMI) [Ratio] 24.3 kg/m2 Dr. iMsbah Elkins MD Work Phone: 1(254)271-479224 [place] [address] 12-24-2024 19:39-0400 Body weight 62.[address] Misbah Elkins MD Work Phone: 6(489)993-459124 [place] [address] 12-23-2024 08:11-0400 Body mass index (BMI) [Ratio] 24.6 kg/m2 Dr. Misbah Elkins MD Work Phone: 5(383)274-010124 [place] [address] 12-23-2024 08:11-0400 Body temperature 97.4 [degF] Dr. Misbah Elkins MD Work Phone: 5(705)830-120224 [place] [address] 12-23-2024 08:11-0400 Body weight 63.[address] Misbah Elkins MD Work Phone: 4(744)516-272324 [place] [address] 12-23-2024 08:11-0400 Diastolic blood pressure 73 mm[Hg] Dr. Misbah Elkins MD Work Phone: 0(984)641-507524 [place] [address] 12-23-2024 08:11-0400 Heart rate 97 /min Dr. Misbah Elkins MD Work Phone: 9(042)693-272924 [place] [address] 12-23-2024 08:11-0400 Inhaled oxygen flow rate 3 L/min Dr. Misbah Elkins MD Work Phone: 4(314)194-922024 [place] [address] 12-23-2024 08:11-0400 Respiratory rate 22 /min Dr. Misbah Elkins MD Work Phone: 8(240)954-186324 [place] [address] 12-23-2024 08:11-0400 SaO2% (BldA) [Mass fraction] 90 % Dr. Misbah Elkins MD Work Phone: [facility] 12-23-2024 08:11-0400 Systolic blood pressure 153 mm[Hg] Dr. Misbah Elkins MD Work Phone: [facility] 12-19-2024 14:49-0400 Body mass index (BMI) [Ratio] 24.27 kg/m2 Tara Youngblood LEI MAKER.BOX TOE MAKER Work Phone: [facility] 12-19-2024 14:49-0400 Body weight 62.14 kg Tara Youngblood LEI MAKER.BOX TOE MAKER Work Phone: [facility] 12-19-2024 14:49-0400 Diastolic blood pressure 62 mm[Hg] Tara Youngblood LEI MAKER.BOX TOE MAKER Work Phone: [facility] 12-19-2024 14:49-0400 Heart rate 103 /min Tara Youngblood LEI MAKER.BOX TOE MAKER Work Phone: [facility] 12-19-2024 14:49-0400 Respiratory rate 16 /min Tara Youngblood LEI MAKER.BOX TOE MAKER Work Phone: [facility] 12-19-2024 14:49-0400 SaO2% (BldA) [Mass fraction] 93 % Tara Youngblood LEI MAKER.BOX TOE MAKER Work Phone: [facility] Comment on above: on 4 liters 12-19-2024 14:49-0400 Systolic blood pressure 118 mm[Hg] Tara Youngblood LEI MAKER.BOX TOE MAKER Work Phone: [facility] 12-12-2024 15:22-0400 Heart rate 87 /min Dr. Misbah Elkins MD Work Phone: [facility] 12-12-2024 15:22-0400 Respiratory rate 18 /min Dr. Misbah Elkins MD Work Phone: [facility] 12-12-2024 14:00-0400 Inhaled oxygen flow rate 3 L/min Dr. Misbah Elkins MD Work Phone: 2(697)594-955024 [place] [address] 12-12-2024 14:00-0400 SaO2% (BldA) [Mass fraction] 93 % Dr. Misbah Elkins MD Work Phone: 0(881)194-674224 [place] [address] 12-12-2024 13:21-0400 Body temperature 99.1 [degF] Dr. Misbah Elkins MD Work Phone: 3(299)828-577624 [place] [address] 12-12-2024 13:21-0400 Diastolic blood pressure 63 mm[Hg] Dr. Misbah Elkins MD Work Phone: 6(263)236-134124 [place] [address] 12-12-2024 13:21-0400 Systolic blood pressure 129 mm[Hg] Dr. Misbah Elkins MD Work Phone: 2(138)076-241024 [place] [address] 12-12-2024 12:07-0400 Inhaled oxygen concentration 56 % Dr. Misbah Elkins MD Work Phone: 0(943)571-804824 [place] [address] 12-12-2024 05:02-0400 Body mass index (BMI) [Ratio] 23.7 kg/m2 Dr. Misbah Elkins MD Work Phone: 9(171)068-234924 [place] [address] 12-12-2024 05:02-0400 Body weight 60.[address] Misbah Elkins MD Work Phone: 5(044)333-604324 [place] [address] 12-11-2024 13:34-0400 Body height 160.[address] Misbah Elkins MD Work Phone: 4(455)813-709524 [place] [address] 12-08-2024 07:52-0400 Inhaled oxygen flow rate 13 L/min Dr. Misbah Elkins MD Work Phone: 4(320)647-146724 [place] [address] 12-08-2024 07:52-0400 SaO2% (BldA) [Mass fraction] 92 % Dr. Misbah Elkins MD Work Phone: 8(699)845-315824 [place] [address] 12-08-2024 07:16-0400 Heart rate 79 /min Dr. Misbah Elkins MD Work Phone: 4(558)260-144624 [place] [address] 12-08-2024 07:16-0400 Respiratory rate 20 /min Dr. Misbah Elkins MD Work Phone: 2(733)140-523824 [place] [address] 12-08-2024 06:00-0400 Body mass index (BMI) [Ratio] 23.8 kg/m2 Dr. Misbah Elkins MD Work Phone: 4(964)918-358624 [place] [address] 12-08-2024 06:00-0400 Body weight 61.[address] Misbah Elkins MD Work Phone: 8(879)638-405224 [place] [address] 12-08-2024 04:47-0400 Body temperature 97.8 [degF] Dr. Misbah Elkins MD Work Phone: 0(427)662-093924 [place] [address] 12-08-2024 04:47-0400 Diastolic blood pressure 59 mm[Hg] Dr. Misbah Elkins MD Work Phone: 7(027)257-741324 [place] [address] 12-08-2024 04:47-0400 Systolic blood pressure 106 mm[Hg] Dr. Misbah Elkins MD Work Phone: 8(490)618-487424 [place] [address] 12-07-2024 08:56-0400 Inhaled oxygen concentration 56 % Dr. Misbah Elkins MD Work Phone: 1(898)762-596524 [place] [address] 12-06-2024 12:53-0400 Body height 160.[address] Misbah Elkins MD Work Phone: 9(091)267-472524 [place] [address] 12-04-2024 19:00-0400 Heart rate 101 /min Dr. Misbah Elkins MD Work Phone: 0(408)923-942624 [place] [address] 12-04-2024 19:00-0400 Respiratory rate 23 /min Dr. Misbah Elkins MD Work Phone: 3(983)407-597924 [place] [address] 12-04-2024 19:00-0400 SaO2% (BldA) [Mass fraction] 94 % Dr. Misbah Elkins MD Work Phone: 0(854)183-099724 [place] [address] 12-04-2024 18:06-0400 Body temperature 97.7 [degF] Dr. Misbah Elkins MD Work Phone: 0(843)224-932024 [place] [address] 12-04-2024 18:06-0400 Diastolic blood pressure 93 mm[Hg] Dr. Misabh Elkins MD Work Phone: [facility] 12-04-2024 18:06-0400 Systolic blood pressure 129 mm[Hg] Dr. Misbah Elkins MD Work Phone: [facility] 12-04-2024 18:00-0400 Inhaled oxygen flow rate 5 L/min Dr. Misbah Elkins MD Work Phone: [facility] 12-04-2024 15:51-0400 Body height 160.[address] Misbah Elkins MD Work Phone: [facility] 12-04-2024 15:51-0400 Body mass index (BMI) [Ratio] 23 kg/m2 Dr. Misbah Elkins MD Work Phone: [facility] 12-04-2024 15:51-0400 Body weight 58.[address] Misbah Elkins MD Work Phone: [facility] 12-01-2024 12:20-0500 Heart rate 90 /min Jane Farrell MD Work Phone: [facility] 12-01-2024 12:20-0500 Respiratory rate 16 /min Jane Farrell MD Work Phone: [facility] 12-01-2024 12:20-0500 SaO2% (BldA) [Mass fraction] 89 % Jane Farrell MD Work Phone: [facility] 12-01-2024 12:10-0500 Diastolic blood pressure 66 mm[Hg] Jane Farrell MD Work Phone: [facility] 12-01-2024 12:10-0500 Systolic blood pressure 97 mm[Hg] Jane Farrell MD Work Phone: [facility] 12-01-2024 10:46-0500 Body temperature 97.3 [degF] Jane Farrell MD Work Phone: [facility] 11-07-2024 14:03-0500 Body temperature 97.3 [degF] Misbah Elkins MD Work Phone: [facility] 11-07-2024 14:03-0500 Diastolic blood pressure 53 mm[Hg] Misbah Elkins MD Work Phone: [facility] 11-07-2024 14:03-0500 Heart rate 81 /min Misbah Elkins MD Work Phone: [facility] 11-07-2024 14:03-0500 Respiratory rate 20 /min Misbah Elkins MD Work Phone: [facility] 11-07-2024 14:03-0500 SaO2% (BldA) [Mass fraction] 93 % Misbah Elkins MD Work Phone: [facility] 11-07-2024 14:03-0500 Systolic blood pressure 83 mm[Hg] Misbah Elkins MD Work Phone: [facility] 11-02-2024 13:57-0500 Body height 160 cm Juan Nadeen LEI MAKER.BOX TOE MAKER Work Phone: [facility] 11-02-2024 13:57-0500 Body mass index (BMI) [Ratio] 24.45 kg/m2 Juan Nadeen LEI MAKER.BOX TOE MAKER Work Phone: [facility] 11-02-2024 13:57-0500 Body weight 62.6 kg Juanfanny Emly LEI MAKER.BOX TOE MAKER Work Phone: [facility] 11-02-2024 13:57-0500 Diastolic blood pressure 71 mm[Hg] Juan Nadeen LEI MAKER.BOX TOE MAKER Work Phone: [facility] 11-02-2024 13:57-0500 Heart rate 84 /min Juan Nadeen LEI MAKER.BOX TOE MAKER Work Phone: [facility] 11-02-2024 13:57-0500 SaO2% (BldA) [Mass fraction] 97 % Juanfanny Emly LEI MAKER.BOX TOE MAKER Work Phone: [facility] Comment on above: 97 2L 11-02-2024 13:57-0500 Systolic blood pressure 140 mm[Hg] Juan Senior LEI MAKER.BOX TOE MAKER Work Phone: [facility] 08-15-2024 11:31-0500 Body mass index (BMI) [Ratio] 25.15 kg/m2 Soila Older LEI MAKER.BOX TOE MAKER Work Phone: [facility] 08-15-2024 11:31-0500 Body weight 64.41 kg Soila Older LEI MAKER.BOX TOE MAKER Work Phone: [facility] 08-15-2024 11:31-0500 Diastolic blood pressure 78 mm[Hg] Soila Older LEI MAKER.BOX TOE MAKER Work Phone: [facility] 08-15-2024 11:31-0500 Heart rate 80 /min Soila Older LEI MAKER.BOX TOE MAKER Work Phone: [facility] 08-15-2024 11:31-0500 Respiratory rate 16 /min Soila Older LEI MAKER.BOX TOE MAKER Work Phone: [facility] 08-15-2024 11:31-0500 SaO2% (BldA) [Mass fraction] 93 % Soila Older LEI MAKER.BOX TOE MAKER Work Phone: [facility] 08-15-2024 11:31-0500 Systolic blood pressure 112 mm[Hg] Soila Older LEI MAKER.BOX TOE MAKER Work Phone: [facility] 08-10-2024 16:58-0500 Body mass index (BMI) [Ratio] 25.15 kg/m2 Soila Older [employer] Work Phone: [facility] 08-10-2024 16:58-0500 Body weight 64.41 kg Soila Older [employer]I [employer]KER.[employer] Work Phone: [facility] 08-10-2024 16:58-0500 Diastolic blood pressure 80 mm[Hg] Soila Older [employer]I [employer]KER.[employer] Work Phone: [facility] 08-10-2024 16:58-0500 Heart rate 96 /min Soila Older [employer]I [employer]KER.[employer] Work Phone: [facility] 08-10-2024 16:58-0500 Respiratory rate 16 /min Soila Older [employer]I [employer]KER.[employer] Work Phone: [facility] 08-10-2024 16:58-0500 SaO2% (BldA) [Mass fraction] 92 % Soila Older [employer]I [employer]KER.[employer] Work Phone: [facility] 08-10-2024 16:58-0500 Systolic blood pressure 118 mm[Hg] Soila Older [employer]I [employer]KER.[employer] Work Phone: [facility] 08-05-2024 15:36-0500 Body mass index (BMI) [Ratio] 25.38 kg/m2 Misbah Elkins MD Work Phone: [facility] 08-05-2024 15:36-0500 Body weight 65 kg Misbah Elkins MD Work Phone: [facility] 08-05-2024 15:36-0500 Diastolic blood pressure 72 mm[Hg] Misbah Elkins MD Work Phone: [facility] 08-05-2024 15:36-0500 Heart rate 91 /min Misbah Elkins MD Work Phone: [facility] 08-05-2024 15:36-0500 SaO2% (BldA) [Mass fraction] 95 % Misbah Elkins MD Work Phone: [facility] 08-05-2024 15:36-0500 Systolic blood pressure 118 mm[Hg] Misbah Elkins MD Work Phone: [facility] 05-18-2024 16:31-0400 Body mass index (BMI) [Ratio] 23.56 kg/m2 Misbah Elkins MD Work Phone: [facility] 05-18-2024 16:31-0400 Body weight 60.33 kg Misbah Elkins MD Work Phone: [facility] 05-18-2024 16:31-0400 Diastolic blood pressure 72 mm[Hg] Misbah Elkins MD Work Phone: [facility] 05-18-2024 16:31-0400 Heart rate 76 /min Misbah Elkins MD Work Phone: [facility] 05-18-2024 16:31-0400 Respiratory rate 16 /min Misbah Elkins MD Work Phone: [facility] 05-18-2024 16:31-0400 Systolic blood pressure 128 mm[Hg] Misbah Elkins MD Work Phone: [facility] 01-25-2024 14:02-0400 Body mass index (BMI) [Ratio] 24.45 kg/m2 Tara Youngblood LEI MAKER.BOX TOE MAKER Work Phone: [facility] 01-25-2024 14:02-0400 Body temperature 99.19 [degF] Tara Youngblood LEI MAKER.BOX TOE MAKER Work Phone: [facility] 01-25-2024 14:02-0400 Body weight 62.6 kg Tara Youngblood LEI MAKER.BOX TOE MAKER Work Phone: [facility] 01-25-2024 14:02-0400 Diastolic blood pressure 70 mm[Hg] Tara Youngblood LEI MAKER.BOX TOE MAKER Work Phone: [facility] 01-25-2024 14:02-0400 Heart rate 108 /min Tara Youngblood LEI MAKER.BOX TOE MAKER Work Phone: [facility] 01-25-2024 14:02-0400 SaO2% (BldA) [Mass fraction] 95 % Tara Youngblood LEI MAKER.BOX TOE MAKER Work Phone: [facility] Comment on above: 3L [place] 01-25-2024 14:02-0400 Systolic blood pressure 170 mm[Hg] Tara Youngblood LEI MAKER.BOX TOE MAKER Work Phone: [facility] 01-19-2024 23:56-0400 Body temperature 97.9 [degF] Dr. Víctor Huerta Work Phone: [facility] 01-19-2024 23:56-0400 Diastolic blood pressure 81 mm[Hg] Dr. Víctor Huerta Work Phone: [facility] 01-19-2024 23:56-0400 Heart rate 105 /min Dr. Víctor Huerta Work Phone: [facility] 01-19-2024 23:56-0400 Respiratory rate 20 /min Dr. Víctor Huerta Work Phone: [facility] 01-19-2024 23:56-0400 SaO2% (BldA) [Mass fraction] 95 % Dr. Víctor Huerta Work Phone: [facility] 01-19-2024 23:56-0400 Systolic blood pressure 174 mm[Hg] Dr. Víctor Huerta Work Phone: [facility] 01-19-2024 22:07-0400 Body height 160.[address] Víctro Huerta Work Phone: [facility] 01-19-2024 22:07-0400 Body mass index (BMI) [Ratio] 24.5 kg/m2 Dr. Víctor Huerta Work Phone: [facility] 01-19-2024 22:07-0400 Body weight 62.[address] Víctor Huerta Work Phone: [facility] 01-12-2024 11:30-0400 Heart rate 96 /min Anat Gutiérrez APRN.BOX TOE MAKER Work Phone: [facility] 01-12-2024 11:08-0400 Body weight 61.69 kg Anat Gutiérrez APRN.BOX TOE MAKER Work Phone: [facility] 01-12-2024 11:08-0400 Diastolic blood pressure 68 mm[Hg] Anat Gutiérrez LEI MAKER.BOX TOE MAKER Work Phone: [facility] 01-12-2024 11:08-0400 Respiratory rate 18 /min Anat Gutiérrez APRN.BOX TOE MAKER Work Phone: [facility] 01-12-2024 11:08-0400 SaO2% (BldA) [Mass fraction] 90 % Anat Gutiérrez APRN.BOX TOE MAKER Work Phone: [facility] 01-12-2024 11:08-0400 Systolic blood pressure 96 mm[Hg] Anat Brock WELLSBOX TOE MAKER Work Phone: [facility] 01-05-2024 11:24-0400 Body temperature 97.8 [degF] Dr. Víctor Huerta Work Phone: [facility] 01-05-2024 11:24-0400 Diastolic blood pressure 99 mm[Hg] Dr. Víctor Huerta Work Phone: [facility] 01-05-2024 11:24-0400 Heart rate 98 /min Dr. Víctor Huerta Work Phone: [facility] 01-05-2024 11:24-0400 Inhaled oxygen flow rate 2 L/min Dr. Víctor Huerta Work Phone: [facility] 01-05-2024 11:24-0400 Respiratory rate 18 /min Dr. Víctor Huerta Work Phone: [facility] 01-05-2024 11:24-0400 SaO2% (BldA) [Mass fraction] 92 % Dr. Víctor Huerta Work Phone: [facility] 01-05-2024 11:24-0400 Systolic blood pressure 155 mm[Hg] Dr. Víctor Huerta Work Phone: [facility] 01-05-2024 05:32-0400 Body mass index (BMI) [Ratio] 23.2 kg/m2 Dr. Víctor Huerta Work Phone: [facility] 01-05-2024 05:32-0400 Body weight 59.[address] Víctor Huerta Work Phone: [facility] 01-04-2024 11:11-0400 Body height 160.[address] Víctor Huerta Work Phone: [facility] 01-02-2024 22:48-0400 Body temperature 98.7 [degF] [facility] 01-02-2024 22:48-0400 Diastolic blood pressure 81 mm[Hg] [facility] 01-02-2024 22:48-0400 Heart rate 115 /min [facility] 01-02-2024 22:48-0400 Respiratory rate 21 /min [facility] 01-02-2024 22:48-0400 SaO2% (BldA) [Mass fraction] 93 % [facility] 01-02-2024 22:48-0400 Systolic blood pressure 102 mm[Hg] [facility] 01-02-2024 22:00-0400 Inhaled oxygen flow rate 2 L/min [facility] 01-02-2024 18:57-0400 Body height 160.02 cm [facility] 01-02-2024 18:57-0400 Body mass index (BMI) [Ratio] 23.9 kg/m2 [facility] 01-02-2024 18:57-0400 Body weight 61.23 kg [facility] 12-16-2023 14:13-0400 Body weight 61.05 kg Larry Denbow PA-C Work Phone: [facility] 12-16-2023 14:13-0400 Diastolic blood pressure 74 mm[Hg] Larry Denbow PA-C Work Phone: [facility] 12-16-2023 14:13-0400 Heart rate 130 /min Larry Denbow PA-C Work Phone: [facility] 12-16-2023 14:13-0400 Respiratory rate 18 /min Larry Denbow PA-C Work Phone: [facility] 12-16-2023 14:13-0400 SaO2% (BldA) [Mass fraction] 95 % Larry Denbow PA-C Work Phone: [facility] 12-16-2023 14:13-0400 Systolic blood pressure 124 mm[Hg] Larry Denbow PA-C Work Phone: [facility] 07-08-2023 20:38-0400 Diastolic blood pressure 68 mm[Hg] POLYSTYRENE MOLDING MACHINE TENDER-C SOILA EASTON Work Phone: [facility] 07-08-2023 20:38-0400 Respiratory rate 20 /min POLYSTYRENE MOLDING MACHINE TENDER-C SOILA OLDER Work Phone: [facility] 07-08-2023 20:38-0400 SaO2% (BldA) [Mass fraction] 97 % POLYSTYRENE MOLDING MACHINE TENDER-C SOILA OLDER Work Phone: [facility] 07-08-2023 20:38-0400 Systolic blood pressure 150 mm[Hg] POLYSTYRENE MOLDING MACHINE TENDER-C SOILA OLDER Work Phone: [facility] 07-08-2023 18:57-0400 Heart rate 103 /min POLYSTYRENE MOLDING MACHINE TENDER-C SOILA OLDER Work Phone: [facility] 07-08-2023 18:11-0400 Body height 160.02 cm POLYSTYRENE MOLDING MACHINE TENDER-C SOILA OLDER Work Phone: 1(447)[phone] [place] [address] 07-08-2023 18:11-0400 Body mass index (BMI) [Ratio] 23.9 kg/m2 POLYSTYRENE MOLDING MACHINE TENDER-C SOILA OLDER Work Phone: [facility] 07-08-2023 18:11-0400 Body temperature 98.1 [degF] POLYSTYRENE MOLDING MACHINE TENDER-C SOILA OLDER Work Phone: [facility] 07-08-2023 18:11-0400 Body weight 61.23 kg POLYSTYRENE MOLDING MACHINE TENDER-C SOILA OLDER Work Phone: [facility] 06-30-2023 07:55-0400 Body mass index (BMI) [Ratio] 23.3 kg/m2 POLYSTYRENE MOLDING MACHINE TENDER-C SOILA OLDER Work Phone: [facility] 06-30-2023 07:55-0400 Body temperature 97.4 [degF] POLYSTYRENE MOLDING MACHINE TENDER-C SOILA OLDER Work Phone: [facility] 06-30-2023 07:55-0400 Body weight 59.87 kg POLYSTYRENE MOLDING MACHINE TENDER-C SOILA OLDER Work Phone: [facility] 06-30-2023 07:55-0400 Diastolic blood pressure 87 mm[Hg] POLYSTYRENE MOLDING MACHINE TENDER-C SOILA OLDER Work Phone: [facility] 06-30-2023 07:55-0400 Heart rate 98 /min POLYSTYRENE MOLDING MACHINE TENDER-C OSILA OLDER Work Phone: [facility] 06-30-2023 07:55-0400 Respiratory rate 20 /min POLYSTYRENE MOLDING MACHINE TENDER-C SOILA OLDER Work Phone: [facility] 06-30-2023 07:55-0400 SaO2% (BldA) [Mass fraction] 94 % POLYSTYRENE MOLDING MACHINE TENDER-C SOILA OLDER Work Phone: [facility] 06-30-2023 07:55-0400 Systolic blood pressure 150 mm[Hg] POLYSTYRENE MOLDING MACHINE TENDER-C SOILA OLDER Work Phone: [facility] 06-02-2023 15:01-0400 Body height 160.02 cm [facility] 06-02-2023 15:01-0400 Body mass index (BMI) [Ratio] 23 kg/m2 [facility] 06-02-2023 15:01-0400 Body temperature 97.2 [degF] [facility] 06-02-2023 15:01-0400 Body weight 58.96 kg [facility] 06-02-2023 15:01-0400 Diastolic blood pressure 99 mm[Hg] [facility] 06-02-2023 15:01-0400 Heart rate 100 /min [facility] 06-02-2023 15:01-0400 Respiratory rate 17 /min [facility] 06-02-2023 15:01-0400 SaO2% (BldA) [Mass fraction] 95 % [facility] 06-02-2023 15:01-0400 Systolic blood pressure 148 mm[Hg] [facility] 04-15-2023 12:39-0400 Body height 160 cm Larry Talley PA-C Work Phone: [facility] 04-15-2023 12:39-0400 Body temperature 97.2 [degF] Larry Talley PA-C Work Phone: [facility] 04-15-2023 12:39-0400 Body weight 59.42 kg Larry Denbow PA-C Work Phone: [facility] 04-15-2023 12:39-0400 Diastolic blood pressure 52 mm[Hg] Larry Denbow PA-C Work Phone: [facility] 04-15-2023 12:39-0400 Heart rate 104 /min Larry Denbow PA-C Work Phone: [facility] 04-15-2023 12:39-0400 Respiratory rate 16 /min Larry Denbow PA-C Work Phone: [facility] 04-15-2023 12:39-0400 SaO2% (BldA) [Mass fraction] 94 % Larry Denbow PA-C Work Phone: [facility] 04-15-2023 12:39-0400 Systolic blood pressure 104 mm[Hg] Larry Denbow PA-C Work Phone: [facility] 11-28-2022 13:00-0500 Body temperature 98.01 [degF] Soila Older LEI MAKER.BOX TOE MAKER Work Phone: [facility] 11-28-2022 13:00-0500 Body weight 58.51 kg Soila Older LEI MAKER.BOX TOE MAKER Work Phone: [facility] 11-28-2022 13:00-0500 Diastolic blood pressure 62 mm[Hg] Soila Older LEI MAKER.BOX TOE MAKER Work Phone: [facility] 11-28-2022 13:00-0500 Heart rate 108 /min Soila Older LEI MAKER.BOX TOE MAKER Work Phone: [facility] 11-28-2022 13:00-0500 Respiratory rate 16 /min Soila Older LEI MAKER.BOX TOE MAKER Work Phone: [facility] 11-28-2022 13:00-0500 SaO2% (BldA) [Mass fraction] 96 % Soila Older LEI MAKER.BOX TOE MAKER Work Phone: [facility] 11-28-2022 13:00-0500 Systolic blood pressure 98 mm[Hg] Soila Older LEI MAKER.BOX TOE MAKER Work Phone: [facility] 11-26-2022 13:13-0500 Body temperature 98.8 [degF] Mariluz Teraner PA-C Work Phone: [facility] 11-26-2022 13:13-0500 Body weight 58.7 kg Mariluz Teraner PA-C Work Phone: [facility] 11-26-2022 13:13-0500 Diastolic blood pressure 63 mm[Hg] Mariluz Teraner PA-C Work Phone: [facility] 11-26-2022 13:13-0500 Heart rate 111 /min Mariluz Teraner PA-C Work Phone: [facility] 11-26-2022 13:13-0500 Respiratory rate 24 /min Mariluz Teraner PA-C Work Phone: [facility] 11-26-2022 13:13-0500 SaO2% (BldA) [Mass fraction] 96 % Mariluz Teraner PA-C Work Phone: [facility] 11-26-2022 13:13-0500 Systolic blood pressure 96 mm[Hg] Mariluz Teraner PA-C Work Phone: [facility] 11-25-2022 09:50-0500 Body height 160 cm Misbah Elkins MD Work Phone: [facility] 11-25-2022 09:50-0500 Body temperature 97.5 [degF] Misbah Elkins MD Work Phone: [facility] 11-25-2022 09:50-0500 Body weight 58.97 kg Misbah Elkins MD Work Phone: [facility] 11-25-2022 09:50-0500 Diastolic blood pressure 60 mm[Hg] Misbah Elkins MD Work Phone: [facility] 11-25-2022 09:50-0500 Heart rate 111 /min Misbah Elkins MD Work Phone: [facility] 11-25-2022 09:50-0500 Respiratory rate 16 /min Misbah Elkins MD Work Phone: [facility] 11-25-2022 09:50-0500 SaO2% (BldA) [Mass fraction] 97 % Misbah Elkins MD Work Phone: [facility] 11-25-2022 09:50-0500 Systolic blood pressure 132 mm[Hg] Misbah Elkins MD Work Phone: [facility] 11-11-2022 15:59-0500 Body height 160 cm Misbah Elkins MD Work Phone: [facility] 11-11-2022 15:59-0500 Body temperature 97.7 [degF] Misbah Elkins MD Work Phone: [facility] 11-11-2022 15:59-0500 Body weight 58.97 kg Misbah Elkins MD Work Phone: [facility] 11-11-2022 15:59-0500 Diastolic blood pressure 56 mm[Hg] Misbah Elkins MD Work Phone: [facility] 11-11-2022 15:59-0500 Heart rate 96 /min Misbah Elkins MD Work Phone: [facility] 11-11-2022 15:59-0500 Respiratory rate 12 /min Misbah Elkins MD Work Phone: [facility] 11-11-2022 15:59-0500 SaO2% (BldA) [Mass fraction] 99 % Misbah Elkins MD Work Phone: [facility] 11-11-2022 15:59-0500 Systolic blood pressure 108 mm[Hg] Misbah Elkins MD Work Phone: [facility] 11-07-2022 13:41-0500 Heart rate 96 /min POLYSTYRENE MOLDING MACHINE TENDER-C SOILA EASTON Work Phone: [facility] 11-07-2022 13:41-0500 Inhaled oxygen flow rate 2 L/min POLYSTYRENE MOLDING MACHINE TENDER-C SOILA EASTON Work Phone: [facility] 11-07-2022 13:41-0500 Respiratory rate 20 /min POLYSTYRENE MOLDING MACHINE TENDER-C SOILA OLDER Work Phone: [facility] 11-07-2022 13:41-0500 SaO2% (BldA) [Mass fraction] 95 % POLYSTYRENE MOLDING MACHINE TENDER-C SOILA OLDER Work Phone: [facility] 11-07-2022 09:20-0500 Body temperature 98 [degF] POLYSTYRENE MOLDING MACHINE TENDER-C SOILA OLDER Work Phone: [facility] 11-07-2022 09:20-0500 Diastolic blood pressure 85 mm[Hg] POLYSTYRENE MOLDING MACHINE TENDER-C SOILA OLDER Work Phone: [facility] 11-07-2022 09:20-0500 Systolic blood pressure 126 mm[Hg] POLYSTYRENE MOLDING MACHINE TENDER-C SOILA OLDER Work Phone: [facility] 11-07-2022 06:00-0500 Body weight 62.2 kg POLYSTYRENE MOLDING MACHINE TENDER-C SOILA OLDER Work Phone: [facility] 11-05-2022 10:20-0500 Body height 160.02 cm POLYSTYRENE MOLDING MACHINE TENDER-C SOILA OLDER Work Phone: [facility] 11-05-2022 07:21-0500 Inhaled oxygen concentration 30 % POLYSTYRENE MOLDING MACHINE TENDER-C SOILA OLDER Work Phone: [facility] 11-03-2022 08:46-0500 Body height 160 cm Misbah Elkins MD Work Phone: [facility] 11-03-2022 08:46-0500 Body temperature 98.1 [degF] Misbah Elkins MD Work Phone: [facility] 11-03-2022 08:46-0500 Body weight 59.88 kg Misbah Elkins MD Work Phone: [facility] 11-03-2022 08:46-0500 Diastolic blood pressure 60 mm[Hg] Misbah Elkins MD Work Phone: [facility] 11-03-2022 08:46-0500 Heart rate 101 /min Misbah Elkins MD Work Phone: [facility] 11-03-2022 08:46-0500 Respiratory rate 20 /min Misbah Elkins MD Work Phone: [facility] 11-03-2022 08:46-0500 SaO2% (BldA) [Mass fraction] 94 % Misbah Elkins MD Work Phone: [facility] 11-03-2022 08:46-0500 Systolic blood pressure 140 mm[Hg] Misbah Elkins MD Work Phone: [facility] 11-01-2022 23:22-0500 Body mass index (BMI) [Ratio] 23.7 kg/m2 POLYSTYRENE MOLDING MACHINE TENDER-C SOILA OLDER Work Phone: [facility] 10-29-2022 07:12-0500 Body temperature 97.7 [degF] Text Entry [facility] 10-29-2022 07:12-0500 Diastolic blood pressure 63 mm[Hg] Text Entry [facility] 10-29-2022 07:12-0500 Heart rate 69 /min [facility] Entry [facility] 10-29-2022 07:12-0500 Respiratory rate 18 /min Text Entry [facility] 10-29-2022 07:12-0500 SaO2% (BldA) [Mass fraction] 97 % Text Entry [facility] 10-29-2022 07:12-0500 Systolic blood pressure 100 mm[Hg] Text Entry [facility] 10-20-2022 07:01-0500 Body temperature 9 [degF] POLYSTYRENE MOLDING MACHINE TENDER-C SOILA OLDER Work Phone: [facility] 10-20-2022 07:01-0500 Diastolic blood pressure 74 mm[Hg] POLYSTYRENE MOLDING MACHINE TENDER-C SOILA OLDER Work Phone: [facility] 10-20-2022 07:01-0500 Heart rate 99 /min POLYSTYRENE MOLDING MACHINE TENDER-C SOILA OLDER Work Phone: [facility] 10-20-2022 07:01-0500 Respiratory rate 15 /min POLYSTYRENE MOLDING MACHINE TENDER-C SOILA OLDER Work Phone: [facility] 01-23-2023 07:01-0500 SaO2% (BldA) [Mass fraction] 94 % POLYSTYRENE MOLDING MACHINE TENDER-C SOILA OLDER Work Phone: 9(730)[phone] [place] [address] 10-20-2022 07:01-0500 Systolic blood pressure 167 mm[Hg] POLYSTYRENE MOLDING MACHINE TENDER-C SOILA OLDER Work Phone: 6(087)[phone] [place] [address] 10-19-2022 18:57-0500 Body height 160.02 cm POLYSTYRENE MOLDING MACHINE TENDER-C SOILA OLDER Work Phone: 1(973)[phone] [place] [address] 10-19-2022 18:57-0500 Body mass index (BMI) [Ratio] 23.6 kg/m2 POLYSTYRENE MOLDING MACHINE TENDER-C SOILA OLDER Work Phone: 8(692)[phone] [place] [address] 10-19-2022 18:57-0500 Body weight 60.32 kg POLYSTYRENE MOLDING MACHINE TENDER-C SOILA OLDER Work Phone: 6(954)[phone] [place] [address] 09-05-2022 13:43-0500 Body mass index (BMI) [Ratio] 23.4 kg/m2 POLYSTYRENE MOLDING MACHINE TENDER-C SOILA OLDER Work Phone: 3(824)[phone] [place] [address] 09-05-2022 13:43-0500 Body temperature 98.4 [degF] POLYSTYRENE MOLDING MACHINE TENDER-C SOILA OLDER Work Phone: 7(452)[phone] [place] [address] 09-05-2022 13:43-0500 Body weight 60.04 kg POLYSTYRENE MOLDING MACHINE TENDER-C SOILA OLDER Work Phone: 7(012)[phone] [place] [address] 09-05-2022 13:43-0500 Diastolic blood pressure 74 mm[Hg] POLYSTYRENE MOLDING MACHINE TENDER-C SOILA OLDER Work Phone: 6(195)[phone] [place] [address] 09-05-2022 13:43-0500 Heart rate 93 /min POLYSTYRENE MOLDING MACHINE TENDER-C SOILA OLDER Work Phone: 6(547)[phone] [place] [address] 09-05-2022 13:43-0500 Inhaled oxygen flow rate 2 L/min POLYSTYRENE MOLDING MACHINE TENDER-C SOILA OLDER Work Phone: 9(082)[phone] [place] [address] 09-05-2022 13:43-0500 Respiratory rate 18 /min POLYSTYRENE MOLDING MACHINE TENDER-C SOILA OLDER Work Phone: 6(278)[phone] [place] [address] 12-09-2022 13:43-0500 SaO2% (BldA) [Mass fraction] 96 % POLYSTYRENE MOLDING MACHINE TENDER-C SOILA OLDER Work Phone: [facility] 09-05-2022 13:43-0500 Systolic blood pressure 104 mm[Hg] POLYSTYRENE MOLDING MACHINE TENDER-C SOILA OLDER Work Phone: [facility] 08-27-2022 12:49-0500 Body temperature 98.29 [degF] Soila Older LEI MAKER.BOX TOE MAKER Work Phone: [facility] 08-27-2022 12:49-0500 Body weight 59.88 kg Soila Older LEI MAKER.BOX TOE MAKER Work Phone: [facility] 08-27-2022 12:49-0500 Diastolic blood pressure 80 mm[Hg] Soila Older LEI MAKER.BOX TOE MAKER Work Phone: [facility] 08-27-2022 12:49-0500 Heart rate 80 /min Soila Older LEI MAKER.BOX TOE MAKER Work Phone: [facility] 08-27-2022 12:49-0500 Respiratory rate 16 /min Soila Older LEI MAKER.BOX TOE MAKER Work Phone: [facility] 08-27-2022 12:49-0500 SaO2% (BldA) [Mass fraction] 82 % Soila Older LEI MAKER.BOX TOE MAKER Work Phone: [facility] 08-27-2022 12:49-0500 Systolic blood pressure 132 mm[Hg] Soila Older LEI MAKER.BOX TOE MAKER Work Phone: [facility] 08-22-2022 19:41-0500 Diastolic blood pressure 91 mm[Hg] POLYSTYRENE MOLDING MACHINE TENDER-C SOILA OLDER Work Phone: [facility] 08-22-2022 19:41-0500 Heart rate 100 /min POLYSTYRENE MOLDING MACHINE TENDER-C SOILA OLDER Work Phone: [facility] 08-22-2022 19:41-0500 Respiratory rate 24 /min POLYSTYRENE MOLDING MACHINE TENDER-C SOILA OLDER Work Phone: [facility] 08-22-2022 19:41-0500 SaO2% (BldA) [Mass fraction] 93 % POLYSTYRENE MOLDING MACHINE TENDER-C SOILA OLDER Work Phone: [facility] 08-22-2022 19:41-0500 Systolic blood pressure 146 mm[Hg] POLYSTYRENE MOLDING MACHINE TENDER-C SOILA OLDER Work Phone: [facility] 08-22-2022 18:11-0500 Body temperature 97.8 [degF] POLYSTYRENE MOLDING MACHINE TENDER-C SOILA OLDER Work Phone: [facility] 08-22-2022 18:11-0500 Inhaled oxygen flow rate 2 L/min POLYSTYRENE MOLDING MACHINE TENDER-C SOILA OLDER Work Phone: [facility] 08-22-2022 16:06-0500 Body mass index (BMI) [Ratio] 23.5 kg/m2 POLYSTYRENE MOLDING MACHINE TENDER-C SOILA OLDER Work Phone: [facility] 08-22-2022 16:06-0500 Body weight 60.2 kg POLYSTYRENE MOLDING MACHINE TENDER-C SOILA OLDER Work Phone: [facility] 07-18-2022 09:56-0400 Body weight 60.33 kg Soila Older LEI MAKER.BOX TOE MAKER Work Phone: [facility] 07-18-2022 09:56-0400 Diastolic blood pressure 72 mm[Hg] Soila Older LEI MAKER.BOX TOE MAKER Work Phone: [facility] 07-18-2022 09:56-0400 Heart rate 72 /min Soila Older LEI MAKER.BOX TOE MAKER Work Phone: [facility] 07-18-2022 09:56-0400 Respiratory rate 16 /min Soila Older LEI MAKER.BOX TOE MAKER Work Phone: [facility] 07-18-2022 09:56-0400 Systolic blood pressure 128 mm[Hg] Soila Older LEI MAKER.BOX TOE MAKER Work Phone: [facility] 05-27-2022 09:13-0400 Body height 160 cm Claudia Odonnell MD Work Phone: [facility] 05-27-2022 09:13-0400 Body weight 59.06 kg Claudia Odonnell MD Work Phone: [facility] 05-27-2022 09:13-0400 Diastolic blood pressure 72 mm[Hg] Claudia Odonnell MD Work Phone: [facility] 05-27-2022 09:13-0400 Heart rate 81 /min Claudia Odonnell MD Work Phone: [facility] 05-27-2022 09:13-0400 Systolic blood pressure 116 mm[Hg] Claudia Odonnell MD Work Phone: [facility] 04-17-2022 08:57-0400 Body weight 58.51 kg Soila Older LEI MAKER.BOX TOE MAKER Work Phone: [facility] 04-17-2022 08:57-0400 Diastolic blood pressure 72 mm[Hg] Soila Older LEI MAKER.BOX TOE MAKER Work Phone: [facility] 04-17-2022 08:57-0400 Heart rate 92 /min Soila Older [employer] Work Phone: [facility] 04-17-2022 08:57-0400 Respiratory rate 16 /min Soila Older [employer] Work Phone: [facility] 04-17-2022 08:57-0400 Systolic blood pressure 128 mm[Hg] Soila Older [employer] Work Phone: [facility] 03-03-2022 14:20-0400 Inhaled oxygen flow rate 2 L/min [facility] Work Phone: 03-03-2022 14:20-0400 SaO2% (BldA) [Mass fraction] 94 % [employer] TENDER-Nichole Teague POLYSTYRENE MOLDING MACHINE TENDER Work Phone: [facility] Work Phone: 03-03-2022 14:16-0400 Diastolic blood pressure 84 mm[Hg] CARMEN Teague POLYSTYRENE MOLDING MACHINE TENDER Work Phone: [facility] Work Phone: 03-03-2022 14:16-0400 Heart rate 91 /min POLYSTYRENE MOLDING MACHINE TENDERMiriam Teague POLYSTYRENE MOLDING MACHINE TENDER Work Phone: [facility] Work Phone: 03-03-2022 14:16-0400 Respiratory rate 16 /min POLYSTYRENE MOLDING MACHINE TENDER-C Theron Teague POLYSTYRENE MOLDING MACHINE TENDER Work Phone: [facility] Work Phone: 03-03-2022 14:16-0400 Systolic blood pressure 108 mm[Hg] POLYSTYRENE MOLDING MACHINE TENDER-C Theron Teague POLYSTYRENE MOLDING MACHINE TENDER Work Phone: [facility] Work Phone: 03-03-2022 11:36-0400 Body height 160.02 cm POLYSTYRENE MOLDING MACHINE TENDER-C Theron Teague POLYSTYRENE MOLDING MACHINE TENDER Work Phone: [facility] Work Phone: 03-03-2022 11:36-0400 Body mass index (BMI) [Ratio] 23.9 kg/m2 POLYSTYRENE MOLDING MACHINE TENDER-C Theron Teague POLYSTYRENE MOLDING MACHINE TENDER Work Phone: [facility] Work Phone: 03-03-2022 11:36-0400 Body temperature 97.8 [degF] POLYSTYRENE MOLDING MACHINE TENDER-C Theron Teague POLYSTYRENE MOLDING MACHINE TENDER Work Phone: [facility] Work Phone: 03-03-2022 11:36-0400 Body weight 61.23 kg POLYSTYRENE MOLDING MACHINE TENDER-C Theron Teague POLYSTYRENE MOLDING MACHINE TENDER Work Phone: [facility] Work Phone: 01-16-2022 09:30-0400 Body mass index (BMI) [Ratio] 22.8 kg/m2 POLYSTYRENE MOLDING MACHINE TENDER-C Theron Teague POLYSTYRENE MOLDING MACHINE TENDER Work Phone: [facility] Work Phone: 01-16-2022 09:30-0400 Body temperature 98.9 [degF] POLYSTYRENE MOLDING MACHINE TENDER-Nichole Teague POLYSTYRENE MOLDING MACHINE TENDER Work Phone: [facility] Work Phone: 01-16-2022 09:30-0400 Body weight 58.51 kg POLYSTYRENE MOLDING MACHINE TENDER-Nichole Teague POLYSTYRENE MOLDING MACHINE TENDER Work Phone: [facility] Work Phone: 01-16-2022 09:30-0400 Diastolic blood pressure 82 mm[Hg] POLYSTYRENE MOLDING MACHINE TENDER-C Theron Teague POLYSTYRENE MOLDING MACHINE TENDER Work Phone: [facility] Work Phone: 01-16-2022 09:30-0400 Heart rate 108 /min POLYSTYRENE MOLDING MACHINE TENDER-C Theron Teague POLYSTYRENE MOLDING MACHINE TENDER Work Phone: [facility] Work Phone: 01-16-2022 09:30-0400 Respiratory rate 19 /min POLYSTYRENE MOLDING MACHINE TENDER-C Theron Teague POLYSTYRENE MOLDING MACHINE TENDER Work Phone: [facility] Work Phone: 01-16-2022 09:30-0400 SaO2% (BldA) [Mass fraction] 96 % POLYSTYRENE MOLDING MACHINE TENDER-C Theron Teague POLYSTYRENE MOLDING MACHINE TENDER Work Phone: [facility] Work Phone: 01-16-2022 09:30-0400 Systolic blood pressure 104 mm[Hg] POLYSTYRENE MOLDING MACHINE TENDER-C Theron Teague POLYSTYRENE MOLDING MACHINE TENDER Work Phone: [facility] Work Phone: Encounters Encounter Date Encounter Type Care Provider Facility Start: 07-06-2025 ambulatory [facility] Facility :[facility] Start: 04-27-2025 End: 04-27-[address] Misbah Elkins MD Work Phone: -Laboratory Specimen Start: 04-27-2025 End: 04-27-2025 Gabby SILVA -Laboratory Specimen Work Phone: Start: 04-26-2025 End: 04-26-2025 Gabby SILVA -[facility] Work Phone: Start: 04-26-2025 End: 04-27-[address] Misbah Elkins MD Work Phone: -[facility] Start: 04-25-2025 End: 04-25-2025 Office outpatient visit 25 minutes Misbah Elkins MD Work Phone: [facility] [place] Comment on above: Subclavian arterial stenosis (Primary Dx); Stenosis of left carotid artery; Acute pancreatitis without infection or necrosis, unspecified pancreatitis type (HCC); Hypertensive crisis; Chronic obstructive pulmonary disease with acute lower respiratory infection (HCC); Respiratory failure with hypoxia, unspecified chronicity (HCC) Start: 04-25-2025 End: 04-26-2025 ambulatory MISBAH ELKINS Facility:[facility] Start: 04-25-2025 End: 04-26-2025 Telephone encounter Misbah Elkins MD Work Phone: [facility] [place] Comment on above: Pain medication Start: 04-20-2025 End: 04-22-2025 Telephone encounter Misbah Elkins MD Work Phone: [facility] [place] Comment on above: Patient Update Start: 04-19-2025 Dr. Sudhir Izquierdo MD -[place] [facility] Work Phone: Start: 04-18-2025 Dr. Sudhir Izquierdo MD [facility] Work Phone: Start: 04-17-2025 Dr. Bert Greenwood MD [facility] Work Phone: Start: 04-16-2025 ambulatory Sudhir Izquierdo Fac ility:[facility] Start: 04-16-2025 End: 04-19-2025 Evaluation and management of inpatient Dr. Misbah Elkins MD Work Phone: -[facility] 3 Start: 04-16-2025 End: 04-19-2025 Dr. Jackson Monk DO -[facility] 3 Work Phone: Start: 04-11-2025 End: 04-11-2025 Telephone encounter Misbah Elkins MD Work Phone: NOC Comment on above: Transition Of Care Start: 04-10-2025 End: 04-10-2025 Telephone encounter Misbah Elkins MD Work Phone: NOC Comment on above: Transition Of Care Start: 04-10-2025 End: 04-10-2025 Office outpatient visit 25 minutes Nicolas Greer APRN.GATE ATTENDANT Work Phone: [facility] [place] Comment on above: Hospital discharge f ollow-up (Primary Dx); Acute respiratory failure with hypoxia (HCC); Chronic recurrent pancreatitis (HCC); Norovirus; Pneumonia of both lungs due to infectious organism, unspecified part of lung; Presence of pancreatic duct stent; Alcoholic hepatitis without ascites (HCC); Alcohol use disorder, moderate, dependence (HCC) Start: 04-10-2025 End: 04-10-2025 ambulatory MISBAH ELKINS Facility:[facility] Start: 04-10-2025 End: 04-10-2025 nAi Eduardo POLYSTYRENE MOLDING MACHINE TENDER-C -[facility] Work Phone: Start: 04-10-2025 End: 04-10-[address] Misbah Elkins MD Work Phone: -[facility] Start: 04-07-2025 End: 04-07-2025 Telephone encounter Floresita Villaseñor APRN.BOX TOE MAKER Work Phone: Gastroenterology Comment on above: Opened In Error Start: 04-04-2025 End: 04-07-2025 Telephone encounter Misbah Elkins MD Work Phone: NOC Comment on above: Transition Of Care Chronic recurrent pa ncreatitis (HCC) (Primary Dx) Transition Of Care ( Left V/m ) Appointment Start: 03-29-2025 End: 03-29-2025 Telephone encounter Juan Senior APRN.BOX TOE MAKER Work Phone: [facility] Comment on above: Patient Question Start: 03-28-2025 End: 03-28-2025 Telephone encounter Herman Nevarez RN NOC Comment on above: Transition Of Care ( RC f/u discharge LVM /) Start: 03-21-2025 End: 03-22-2025 Refill Misbah Elkins MD Work Phone: [facility] [place] Comment on above: Refill Request Start: 03-20-2025 End: 03-20-2025 Evaluation and management of inpatient NGUYEN PALACOIS Facility:[id number] Start: 03-16-2025 End: 03-16-2025 Telephone encounter Misbah Elkins MD Work Phone: [facility] [place] Comment on above: Patient Update Start: 03-16-2025 Dr. Sudhir Izquierdo MD -[place] [facility] Work Phone: Start: 03-15-2025 End: 03-23-2025 Evaluation and management of inpatient [place] Facility:[id number] Start: 03-15-2025 Dr. Sudhir Izquierdo MD -[place] [facility] Work Phone: Start: 03-15-2025 End: 03-16-2025 ambulatory Maksim Anderson APRN.BOX TOE MAKER Work Phone: Critical Care Start: 03-15-2025 Dr. Gonzalo Sebastian DO -[facility] Start: 03-14-2025 Dr. Sudhir Izquierdo MD -[place] [facility] Work Phone: Start: 03-13-2025 End: 03-15-2025 Evaluation and management of inpatient Dr. Misbah Elkins MD Work Phone: [facility] Work Phone: Start: 03-13-2025 [facility] Start: 03-13-2025 End: 03-15-2025 Dr. Pako Fernández MD -[facility] it Work Phone: Start: 03-13-2025 End: 03-13-2025 Telephone encounter Jane Farrell MD Work Phone: Gastroenterology Comment on above: Patient Update (Symp toms after ERCP ) Start: 03-10-2025 ambulatory MISBAH ELKINS Facility:[facility] Start: 03-10-2025 End: 03-10-2025 Subsequent hospital visit by physician Jane Farrell MD Work Phone: Gastroenterology Comment on above: Other chronic pancre atitis (HCC) [K86.1] Start: 03-07-2025 End: 03-07-2025 Telephone encounter Juan Senior APRN.BOX TOE MAKER Work Phone: Gastroenterology Comment on above: Orders Start: 03-06-2025 End: 03-06-2025 Telephone encounter Raisa Jimenez core finisher Comment on above: Patient Question Patient Question (Qu estions Prior to ERCP) Start: 03-03-2025 End: 03-03-2025 ambulatory Jaelyn Kothari RN Gastroenterology Start: 02-26-2025 End: 02-26-2025 Emergency department patient visit Dr. Misbah Elkins MD Work Phone: [facility] Work Phone: Start: 02-26-2025 End: 02-26-2025 Dr. Misbah Elkins MD Work Phone: -Emergency Department Work Phone: Start: 02-10-2025 End: 02-13-2025 Telephone encounter Juan Senior APRN.BOX TOE MAKER Work Phone: Gastroenterology Comment on above: Medical Clearance Start: 02-08-2025 End: 02-08-2025 Ani Eduardo NP-C -[facility] Work Phone: Start: 02-08-2025 End: 02-08-[address] Misbah Elkins MD Work Phone: [facility] Work Phone: Start: 02-03-2025 End: 03-06-2025 Refill Juan Senior APRN.BOX TOE MAKER Work Phone: Gastroenterology Comment on above: Refill Request Start: 01-27-2025 End: 01-27-2025 Dr. [facility] Start: 01-27-2025 End: 01-27-2025 Emergency department patient visit [facility] Facility:[facility] Start: 01-24-2025 End: 01-24-2025 Refill Misbah Elkins MD Work Phone: [facility] [place] Comment on above: Refill Request Start: 01-18-2025 ambulatory Ani Eduardo NP Fac ility:[facility] Start: 01-13-2025 End: 01-13-2025 Patient encounter procedure Soila Easton APRN.BOX TOE MAKER Work Phone: [facility] [place] Comment on above: Gout, unspecified ca use, unspecified chronicity, unspecified site (Primary Dx); Calculus of pancreatic duct (HCC); Chronic recurrent pancreatitis (HCC); Chronic obstructive pulmonary disease, unspecified COPD type (HCC); Pulmonary emphysema, unspecified emphysema type (HCC); Tobacco use disorder Start: 01-13-2025 End: 01-13-2025 ambulatory MISBAH ELKINS Facility:[facility] Start: 01-09-2025 End: 01-12-2025 Telephone encounter Raisa Jimenez RNcore finisher Comment on above: Patient Update (Pain ) Order for Pull Ups Start: 01-06-2025 End: 01-09-2025 Telephone encounter Juan Senior APRN.BOX TOE MAKER Work Phone: [facility] Comment on above: Patient Question Start: 01-05-2025 End: 01-11-2025 Telephone encounter Juan Senior APRN.BOX TOE MAKER Work Phone: Gastroenterology Comment on above: Patient Request Start: 01-03-2025 End: 01-03-2025 Refill Misbah Elkins MD Work Phone: [facility] [place] Comment on above: Refill Request Start: 01-01-2025 End: 01-01-2025 Dr. Misbah Elkins MD Work Phone: -Emergency Department Work Phone: Start: 01-01-2025 End: 01-01-2025 Emergency department patient visit Dr. Misbah Elkins MD Work Phone: [facility] Work Phone: Start: 12-31-2024 End: 01-18-2025 ambulatory Marge Handy RN Work Phone: NURSE BACTERIOLOGIST [facility] Comment on above: Medication Question Refill Request Start: 12-27-2024 End: 12-28-2024 Telephone encounter Juan Senior APRN.BOX TOE MAKER Work Phone: [facility] Comment on above: Patient Update Start: 12-24-2024 End: 12-24-2024 Dr. Misbah Elkins MD Work Phone: -Emergency Department Work Phone: Start: 12-24-2024 End: 12-24-2024 Emergency department patient visit Dr. Misbah Elkins MD Work Phone: [facility] Work Phone: Start: 12-23-2024 End: 12-23-2024 Telephone encounter Raisa Jimenez core finisher Comment on above: Reminder Call (Misse d call) Start: 12-23-2024 End: 12-23-2024 Ani Eduardo POLYSTYRENE MOLDING MACHINE TENDER-C -[facility] Work Phone: Start: 12-23-2024 End: 12-23-2024 ambulatory [facility] Facility:[facility] Start: 12-21-2024 End: 02-20-2025 Follow-up encounter Tara Youngblood APRN.BOX TOE MAKER Work Phone: [facility] Start: 12-20-2024 End: 12-20-2024 ambulatory Carroll Leblanc RN Gastroenterology Start: 12-19-2024 End: 12-19-2024 Subsequent hospital visit by physician [facility] Work Phone: Radiology Comment on above: Chronic recurrent pa ncreatitis (HCC) [K86.1] Start: 12-19-2024 End: 12-19-2024 [facility] Facility:[facility] Start: 12-19-2024 End: 12-19-2024 Patient encounter procedure Tara Youngblood APRN.BOX TOE MAKER Work Phone: [facility] Comment on above: Hospital discharge f ollow-up (Primary Dx); Chronic recurrent pancreatitis (HCC); Chronic obstructive pulmonary disease, unspecified COPD type (HCC); Dysphagia, unspecified type; Essential hypertension, benign; Tobacco use disorder; Smoker Start: 12-19-2024 End: 12-22-2024 Telephone encounter Misbah Elkins MD Work Phone: [facility] [place] Comment on above: Results Start: 12-16-2024 End: 12-16-2024 Gabby SILVA [facility] Work Phone: Start: 12-16-2024 End: 12-16-2024 ambulatory [facility] Facility:[facility] Start: 12-12-2024 Non-patient / Non-visit Dr. Emily Bonilla MD [facility] Work Phone: Start: 12-12-2024 Dr. Anastacia camargo MD [facility] Work Phone: Start: 12-12-2024 Non-patient / Non-visit Marshal Rahul ryder DO -[facility] Start: 12-12-2024 Marshal Segura DO -[facility] Start: 12-11-2024 Non-patient / Non-visit Dr. Emily Bonilla MD [facility] Work Phone: Start: 12-11-2024 Dr. Anastacia camargo MD [facility] Work Phone: Start: 12-10-2024 Non-patient / Non-visit Dr. Emily Bonilla MD [facility] Work Phone: Start: 12-10-2024 Dr. Anastacia camargo MD [facility] Work Phone: Start: 12-09-2024 Non-patient / Non-visit Dr. Emily Bonilla MD [facility] Work Phone: Start: 12-09-2024 Dr. Anastacia camargo MD [facility] Work Phone: Start: 12-09-2024 Non-patient / Non-visit Dr. Gonzalo samuel DO -[facility] Start: 12-09-2024 Dr. Gonzalo Sebastian DO -[facility] Start: 12-08-2024 Non-patient / Non-visit Dr. Cherelle Kahn [facility] Work Phone: Start: 12-08-2024 Dr. Yrn vilchis [facility] Work Phone: Start: 12-08-2024 Non-patient / Non-visit Dr. Gonzalo samuel DO -[facility] Start: 12-08-2024 Dr. Gonzalo Sebastian DO -[facility] Start: 12-07-2024 Non-patient / Non-visit Dr. Cherelle Kahn [facility] Work Phone: Start: 12-07-2024 Dr. Yrn vilchis [facility] Work Phone: Start: 12-07-2024 Non-patient / Non-visit Dr. Gonzalo samuel DO -[facility] Start: 12-07-2024 Dr. Gonzalo Sebastian DO -[facility] Start: 12-06-2024 Non-patient / Non-visit Dr. Cherelle Kahn [facility] Work Phone: Start: 12-06-2024 Dr. Yrn vilchis [facility] Work Phone: Start: 12-06-2024 Non-patient / Non-visit Dr. Gonzalo samuel DO -[facility] Start: 12-06-2024 Dr. Gonzalo Sebastian DO [facility] Start: 12-05-2024 Non-patient / Non-visit Dr. Cherelle Kahn [facility] Work Phone: Start: 12-05-2024 Dr. Yrn vilchis [facility] Work Phone: Start: 12-05-2024 ambulatory Bridgette Gaxiola Fa cility:[facility] Start: 12-05-2024 End: 12-05-2024 Telephone encounter Juan Senior APRN.CNP Work Phone: Gastroenterology Start: 12-05-2024 [facility] / [facility] Start: 12-05-[facility] Start: 12-04-2024 Non-patient / Non-visit Dr. Aleta Aguayo [facility] Work Phone: Start: 12-04-2024 ambulatory Aleta Aguayo Facility:[facility] Start: 12-04-2024 End: 12-12-2024 Evaluation and management of inpatient Dr. Aleta Aguayo DO -Progressive Care Unit Work Phone: Start: 12-04-2024 End: 12-12-2024 Dr. Anastacia Bonilla MD -[facility] Work Phone: Start: 12-01-2024 End: 12-01-2024 Telephone encounter Jane Farrell MD Work Phone: Gastroenterology Comment on above: Endoscopy Call Start: 12-01-2024 End: 12-01-2024 ambulatory MISBAH ELKINS Facility:[facility] Start: 12-01-2024 End: 12-01-2024 Subsequent hospital visit by physician Jane Farrell MD Work Phone: Gastroenterology Comment on above: Chronic recurrent pa ncreatitis (HCC) [K86.1] Start: 11-29-2024 End: 12-02-2024 ambulatory Misbah Elkins MD Work Phone: Internal Medicine [place] [id number] Start: 11-25-2024 End: 11-25-2024 Telephone encounter Raisa Jimenez RNcore finisher Comment on above: Medication Problem ( Medication for EGD) Start: 11-24-2024 End: 11-24-2024 Patient encounter procedure Ani Eduardo POLYSTYRENE MOLDING MACHINE TENDER-C -Pulmonary Services/Neurology Work Phone: Start: 11-24-2024 End: 11-24-2024 Ani Eduardo POLYSTYRENE MOLDING MACHINE TENDER-C -Pulmonary Services/Neurology Work Phone: Start: 11-24-2024 End: 11-24-2024 ambulatory Carroll Leblanc RN Gastroenterology Start: 11-24-2024 End: 11-24-2024 ambulatory Ani Eduardo NP Facility:[facility] Start: 11-21-2024 End: 11-21-2024 Refill Misbah Elkins MD Work Phone: [facility] [place] Comment on above: Refill Request Start: 11-08-2024 End: 11-09-2024 Follow-up encounter Misbah Elkins MD Work Phone: [facility] [place] Start: 11-08-2024 End: 11-09-2024 Telephone encounter Misbah Elkins MD Work Phone: [facility] [place] Comment on above: Medication Problem Start: 11-07-2024 End: 11-07-2024 Subsequent hospital visit by physician [facility] [place] Work Phone: Radiology Comment on above: COPD with exacerbati on (HCC) [J44.1] Start: 11-07-2024 End: 11-07-2024 ambulatory [facility] Facility:[facility] Start: 11-07-2024 End: 11-07-2024 Office outpatient visit 25 minutes Misbah Elkins MD Work Phone: [facility] [place] Comment on above: Cough with sputum (P rimary Dx); Essential hypertension; COPD with exacerbation (HCC) Start: 11-02-2024 End: 11-02-2024 Office outpatient new 30 minutes Juan Senior APRN.CNP Work Phone: Gastroenterology Comment on above: 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) (Primary Dx); Chronic recurrent pancreatitis (HCC); Chronic RUQ pain; Abdominal bloating; Nausea; Gastroesophageal reflux disease without esophagitis Start: 11-02-2024 End: 11-02-2024 ambulatory [facility] Facility:[facility] Start: 10-28-2024 End: 10-28-2024 Refill Misbah Elkins MD Work Phone: [facility] [place] Comment on above: Refill Request Start: 08-23-2024 End: 08-23-2024 ambulatory [facility] Facility:[facility] Start: 08-23-2024 End: 08-23-2024 Subsequent hospital visit by physician Kathleen [facility] (I-Stat) Work Phone: Cat Scan Comment on above: Alcoholic hepatitis without ascites [K70.10] Start: 08-19-2024 End: 08-19-2024 Telephone encounter Misbah Elkins MD Work Phone: [facility] [place] Comment on above: medication issue Start: 08-16-2024 End: 08-17-2024 Refill Misbah Elkins MD Work Phone: [facility] [place] Comment on above: Refill Request Start: 08-15-2024 End: 08-15-2024 [facility] Facility:[facility] Start: 08-15-2024 End: 08-15-2024 Patient encounter procedure Soila Easton APRN.BOX TOE MAKER Work Phone: [facility] [place] Comment on above: Chronic obstructive pulmonary disease, unspecified COPD type (HCC) (Primary Dx); Generalized abdominal tenderness without rebound tenderness; Upper abdominal pain; Elevated lipase; Nausea; Alcoholic hepatitis without ascites; Alcohol use disorder, moderate, dependence (HCC); Acute pancreatitis, unspecified complication status, unspecified pancreatitis type Start: 08-12-2024 End: 08-12-2024 [facility] Start: 08-11-2024 End: 08-11-2024 Telephone encounter Misbah Elkins MD Work Phone: [facility] [place] Comment on above: Results Start: 08-10-2024 End: 08-10-2024 Subsequent hospital visit by physician [facility] [place] Work Phone: Radiology Comment on above: Shortness of breath [R06.02] Start: 08-10-2024 End: 08-10-2024 Patient encounter procedure Soila Easton APRN.BOX TOE MAKER Work Phone: [facility] [place] Comment on above: Shortness of breath (Primary Dx); Chronic obstructive pulmonary disease with acute exacerbation (HCC); Upper abdominal pain; Nausea; Urinary incontinence, unspecified type; Urinary frequency; Elevated glucose; Tobacco use disorder; Pulmonary emphysema, unspecified emphysema type (HCC) Start: 08-10-2024 End: 08-10-2024 [facility] Facility:[facility] Start: 08-10-2024 End: 08-10-2024 Telephone encounter Misbah Elkins MD Work Phone: [facility] [place] Comment on above: Results; Urinary Pro blem Start: 08-05-2024 End: 08-05-2024 ambulatory [facility] Facility:[facility] Start: 08-05-2024 End: 08-05-2024 Office outpatient visit 25 minutes Misbah Elkins MD Work Phone: [facility] [place] Comment on above: Anxiety (Primary Dx) ; 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 chronic pancreatitis (HCC); Nausea; Encounter for immunization; Insomnia, unspecified type; Leukocytosis, unspecified type Start: 08-05-2024 End: 08-05-2024 ambulatory [facility] Facility:[facility] Start: 07-08-2024 End: 07-08-2024 Refill Misbah Elkins MD Work Phone: [facility] [place] Comment on above: Refill Request Start: 06-21-2024 End: 06-21-2024 Telephone encounter Misbah Elkins MD Work Phone: [facility] [place] Comment on above: No Show Start: 06-15-2024 End: 06-16-2024 Refill Misbah Elkins MD Work Phone: [facility] [place] Comment on above: Refill Request Start: 06-02-2024 End: 06-02-2024 Emergency department patient visit [facility] Facility:[facility] Start: 05-18-2024 End: 05-18-2024 Office outpatient visit 25 minutes Misbah Elkins MD Work Phone: [facility] [place] Comment on above: Anxiety (Primary Dx) ; 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 chronic pancreatitis (HCC); Chronic obstructive pulmonary disease, unspecified COPD type (HCC); Essential hypertension Start: 05-18-2024 End: 05-18-2024 ambulatory [facility] Facility:[facility] Start: 05-13-2024 End: 05-16-2024 Refill Misbah Elkins MD Work Phone: [facility] [place] Comment on above: Refill Request Start: 05-11-2024 End: 05-11-2024 ambulatory Anat Gutiérrez NP Facility:[facility] Start: 05-04-2024 ambulatory Misbah aBck Work Phone: Internal Medicine [place] [id number] Start: 04-15-2024 Refill Misbah Elkins M Tiffani Work Phone: Internal [facility] [place] Comment on above: Refill Request Start: 03-23-2024 Refill Misbah Back Work Phone: [facility] [place] Comment on above: Refill Request; Open ed In Error Start: 03-18-2024 Refill Misbah Back Work Phone: [facility] [place] Comment on above: Refill Request Start: 03-14-2024 Refill Misbah Back Work Phone: [facility] [place] Comment on above: Refill Request Start: 02-26-2024 Refill Misbah Back Work Phone: Internal Medicine [place] Comment on above: Refill Request Start: 02-19-2024 Refill Misbah Back Work Phone: Internal Medicine [place] Comment on above: Refill Request Start: 02-04-2024 Telephone encounter Misbah michelle MD Work Phone: Internal Medicine [place] Comment on above: Patient Update Start: 01-27-2024 Telephone encounter Tara nayak APRN.BOX TOE MAKER Work Phone: [facility] [place] Comment on above: Results Start: 01-25-2024 End: 01-25-2024 Subsequent hospital visit by physician Aki [facility] [place] Work Phone: Radiology Comment on above: Pneumonia due to inf ectious organism, unspecified laterality, unspecified part of lung [J18.9] Start: 01-25-2024 End: 01-25-2024 Patient encounter procedure Tara Youngblood APRN.BOX TOE MAKER Work Phone: [facility] [place] Comment on above: Pneumonia due to inf ectious organism, unspecified laterality, unspecified part of lung (Primary Dx); Acute right ankle pain Start: 01-22-2024 Refill Misbah Back Work Phone: Internal Medicine [place] Comment on above: Refill Request Start: 01-19-2024 End: 01-20-2024 Emergency department patient visit Dr. Víctor Huerta Work Phone: [facility]gency Department Work Phone: Start: 01-18-2024 Refill Misbah Back Work Phone: Internal Medicine [place] Comment on above: Refill Request Start: 01-12-2024 Telephone encounter Anat Cisneros Elizabeth ventura LEI MAKER.BOX TOE MAKER Work Phone: Internal Medicine [place] Comment on above: Medication Question Start: 01-12-2024 End: 01-12-2024 Patient encounter procedure Anat Cisneros Brock LEI MAKER.BOX TOE MAKER Work Phone: Internal Medicine [place] Comment on above: Essential hypertensi on, benign [...] Non-patient / Non-visit Dr. Cary Work Phone: [facility] Work Phone: Start: 01-04-2024 Non-patient / Non-visit Dr. Cary Work Phone: [facility] Work Phone: Start: 01-03-2024 Non-patient / Non-visit Dr. Cary Work Phone: [facility] Work Phone: Start: 01-02-2024 End: 01-05-2024 Evaluation and management of inpatient [facility] 3 Work Phone: Start: 12-16-2023 End: 12-16-2023 Patient encounter procedure Larry Talley PA-C Work Phone: Internal Medicine [place] Comment on above: Tachycardia (Primary Dx); 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 chronic pancreatitis (HCC); Hyperlipidemia, unspecified hyperlipidemia type; Insomnia, unspecified type; Vitamin D deficiency; Chronic obstructive pulmonary disease, unspecified COPD type (HCC); Prediabetes Start: 11-02-2023 Refill Pako Palumbo Work Phone: Hematology/Oncology Comment on above: Refill Request Start: 07-09-2023 Telephone encounter Larry Lee PA-C Work Phone: Internal [facility] [place] Comment on above: Patient Question Start: 07-08-2023 End: 07-08-2023 Emergency department patient visit POLYSTYRENE MOLDING MACHINE TENDER-Nichole EASTON Work Phone: [facility]Emergency Department Work Phone: Start: 06-30-2023 End: 06-30-2023 Patient encounter procedure CARMEN EASTON Work Phone: [facility]Pulmonary Medicine [facility] Work Phone: Start: 06-12-2023 Refill Misbah Elkins M Tiffani Work Phone: Internal Medicine [place] Comment on above: Refill Request Start: 06-10-2023 Refill Soila Easton APRN, .CNP Work Phone: Internal Medicine [place] Comment on above: Refill Request Start: 06-03-2023 ambulatory Misbah Schofieldta M D Work Phone: [facility] [place] Start: 06-02-2023 End: 06-02-2023 Emergency department patient visit [facility] Work Phone: Start: 06-02-2023 End: 06-02-2023 Patient encounter procedure [facility] Work Phone: Start: 05-18-2023 Refill Misbah Ganta M D Work Phone: Internal Medicine [place] Comment on above: Refill Request Start: 05-05-2023 ambulatory Yrn Ortega Facility:[id number] Start: 04-15-2023 End: 04-15-2023 Patient encounter procedure Larry Talley PA-C Work Phone: Internal Medicine [place] Comment on above: Arthralgia of right temporomandibular joint (Primary Dx); Insomnia, unspecified type; Nausea; Alcohol use disorder, moderate, dependence (HCC) Start: 03-24-2023 Refill Misbah Back Work Phone: Internal Medicine [place] Comment on above: Refill Request Start: 03-10-2023 ambulatory Misbah Back Work Phone: [facility] [place] Start: 03-09-2023 ambulatory [facility] Facility:[id number] Start: 01-28-2023 ambulatory [facility] Facility:[id number] Start: 12-31-2022 Telephone encounter Misbah michelle MD Work Phone: [facility] [place] Comment on above: Medication Request Start: 12-22-2022 Patient encounter procedure Soila Easton Work Phone: [facility] Work Phone: Start: 12-22-2022 ambulatory [facility] Facility:[id number] Start: 12-03-2022 ambulatory [facility] Facility:[id number] Start: 11-28-2022 End: 11-28-2022 Patient encounter procedure Soila Easton LEI MAKER.BOX TOE MAKER Work Phone: Internal Medicine [place] Comment on [...] 11-25-2022 Subsequent hospital visit by physician Xr [facility] [place] Work Phone: Radiology Comment on above: [...] Telephone encounter Misbah michelle MD Work Phone: [facility] Comment on above: Results Start: 11-11-2022 End: 11-11-2022 Subsequent hospital visit by physician X[facility] [place] Work Phone: Radiology Comment on above: Chronic obstructive pulmonary disease, unspecified COPD type (HCC) [J44.9] Start: 11-11-2022 End: 11-11-2022 Patient encounter procedure Misbah Elkins MD Work Phone: Internal Medicine [place] Comment on above: CHUY (acute kidney in jury) (HCC) (Primary Dx); Chronic obstructive pulmonary disease, unspecified COPD type (HCC); Alcohol use disorder, moderate, dependence (HCC); Essential hypertension, benign; Hyperlipidemia, unspecified hyperlipidemia type; Tobacco use disorder; Reactive depression; Moderate episode of recurrent major depressive disorder (HCC); 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 chronic pancreatitis (HCC) Start: 11-07-2022 Non-patient / Non-visit POLYSTYRENE MOLDING MACHINE TENDER-C J OY OLDER Work Phone: [facility] Start: 11-06-2022 Non-patient / Non-visit POLYSTYRENE MOLDING MACHINE TENDER-C J OY OLDER Work Phone: [facility] Start: 11-06-2022 Non-patient / Non-visit POLYSTYRENE MOLDING MACHINE TENDER-C J OY OLDER Work Phone: [facility] Start: 11-05-2022 Non-patient / Non-visit POLYSTYRENE MOLDING MACHINE TENDER-C J OY OLDER Work Phone: [facility] Start: 11-05-2022 Non-patient / Non-visit POLYSTYRENE MOLDING MACHINE TENDER-C J OY OLDER Work Phone: [facility] Start: 11-05-2022 Non-patient / Non-visit POLYSTYRENE MOLDING MACHINE TENDER-C J OY OLDER Work Phone: [facility] Start: 11-04-2022 Non-patient / Non-visit POLYSTYRENE MOLDING MACHINE TENDER-C J OY OLDER Work Phone: [facility] Start: 11-04-2022 Non-patient / Non-visit POLYSTYRENE MOLDING MACHINE TENDER-C J OY OLDER Work Phone: [facility] Start: 11-03-2022 Non-patient / Non-visit POLYSTYRENE MOLDING MACHINE TENDER-C J OY OLDER Work Phone: [facility] Start: 11-03-2022 Non-patient / Non-visit POLYSTYRENE MOLDING MACHINE TENDER-C J OY OLDER Work Phone: [facility] Start: 11-02-2022 End: 11-02-2022 Non-patient / Non-visit POLYSTYRENE MOLDING MACHINE TENDER-C SOILA OLDER Work Phone: [facility] Start: 11-02-2022 Non-patient / Non-visit POLYSTYRENE MOLDING MACHINE TENDER-C J OY OLDER Work Phone: [facility] Start: 11-01-2022 Non-patient / Non-visit POLYSTYRENE MOLDING MACHINE TENDER-C J OY OLDER Work Phone: [facility] Start: 11-01-2022 End: 11-07-2022 Evaluation and management of inpatient POLYSTYRENE MOLDING MACHINE TENDER-C SOILA OLDER Work Phone: [facility] Start: 11-01-2022 Chart Update Soila Easton Work Phone: [facility] Work Phone: Start: 10-31-2022 End: 10-31-2022 Patient encounter procedure Misbah Elkins MD Work Phone: Internal Medicine [place] Comment on above: Cellulitis of right orbital region (Primary Dx); CHUY (acute kidney injury) (HCC); Uncontrolled hypertension; Tobacco abuse, in remission; Lung mass Start: 10-24-2022 End: 10-29-2022 Evaluation and management of inpatient Jessica Ellis [facility] 20 Rm 2026 09 Start: 10-23-2022 Telephone encounter Jaime rodriguez MD Work Phone: [facility] Comment on above: Speak to Provider Start: 10-22-2022 End: 10-22-2022 ambulatory UNKNOWN PROVIDER Facility:[facility] Start: 10-21-2022 ambulatory UNKNOWN PROVIDER Facili ty:[facility] Start: 10-21-2022 Evaluation and manag ement of inpatient [facility] Facility:[facility] Start: 10-20-2022 End: 10-24-2022 Evaluation and management of inpatient [facility] Facility:[facility] Start: 10-20-2022 Telephone encounter Jeffy price MD Work Phone: [facility] Start: 10-20-2022 End: 10-20-2022 ambulatory UNKNOWN PROVIDER Facility:[facility] Start: 10-20-2022 Emergency department patient visit UNKNOWN PROVIDER Facility:[facility] Start: 10-20-2022 End: 10-20-2022 Office outpatient visit 25 minutes Jeffery Jin MD Work Phone: [facility] Comment on above: Inflammation of orbi kristopher region (Primary Dx) Start: 10-19-2022 End: 10-20-2022 Emergency department patient visit POLYSTYRENE MOLDING MACHINE TENDERMiriam EASTON Work Phone: [facility]Emergency [facility] Start: 09-05-2022 End: 09-05-2022 Patient encounter procedure CARMEN EASTON Work Phone: [facility]Pulmonary Medicine [facility] Start: 08-27-2022 End: 08-27-2022 Patient encounter procedure Soila Easton APRN.CNP Work Phone: Internal [facility] [place] Comment on above: Chronic obstructive pulmonary disease, unspecified COPD type (HCC) (Primary Dx) Start: 08-22-2022 End: 08-22-2022 Emergency department patient visit POLYSTYRENE MOLDING MACHINE TENDERMiriam EASTON Work Phone: [facility] Start: 07-18-2022 End: 07-18-2022 Patient encounter procedure Soila Easton APRN.CNP Work Phone: Internal [facility] [place] Comment on above: Essential hypertensi on, benign (Primary Dx); Multiple joint pain; 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 chronic pancreatitis (HCC); Chronic obstructive pulmonary disease, unspecified COPD type (HCC); Right otitis media, unspecified otitis media type; Need for influenza vaccination Start: 06-25-2022 ambulatory Misbah Back Work Phone: [facility] [place] Start: 06-25-2022 Telephone encounter Inge doshi APRN.CNP Work Phone: OB/Gynecology Comment on above: Vaginal Problem Start: 06-13-2022 Refill Misbah Back Work Phone: Internal [facility] Comment on above: Refill Request Start: 05-28-2022 End: 05-28-2022 ambulatory [facility] Work Phone: Start: 05-28-2022 End: 05-28-2022 Patient encounter procedure [facility] Start: 05-27-2022 End: 05-27-2022 Patient encounter procedure Claudia Odonnell MD Work Phone: Gastroenterology [place] Comment on above: 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); Alcoholic hepatitis without ascites Start: 05-22-2022 Refill Misbah Back Work Phone: Internal [facility] Comment on above: Refill Request Start: 05-16-2022 Refill Soila Easton APRN, .CNP Work Phone: Internal [facility] Comment on above: Refill Request Start: 05-02-2022 End: 05-02-2022 Subsequent hospital visit by physician [facility] Work Phone: Radiology Comment on above: 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) [K86.0] Start: 04-18-2022 Refill Soila Easton APRN, .CNP Work Phone: Internal Medicine [place] Comment on above: Refill Request Start: 04-18-2022 Telephone encounter Soila Easton APRN.IGOR Work Phone: Family Medicine [place] Comment on above: Opened In Error Start: 04-17-2022 Telephone encounter Soila Easton APRN.IGOR Work Phone: [facility] [place] Comment on above: Medication Question Start: 04-17-2022 End: 04-17-2022 Patient encounter procedure Soila Easton APRN.CNP Work Phone: Internal Medicine [place] Comment on above: Essential hypertensi on, benign (Primary Dx); Hyperlipidemia, unspecified hyperlipidemia type; Chronic fatigue; Alcoholic hepatitis without ascites; 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 chronic pancreatitis (HCC); Iron deficiency; Vitamin D deficiency; MICKEY (generalized anxiety disorder); Reactive depression Start: 03-21-2022 Refill Misbah Back Work Phone: Internal Medicine [place] Comment on above: Refill Request Start: 03-21-2022 Refill Soila Easton APRN .IGOR Work Phone: Internal Medicine [place] Comment on above: Refill Request Start: 03-11-2022 Telephone encounter Inge doshi APRN.CNP Work Phone: OB/Gynecology Comment on above: Vaginal Problem Start: 03-03-2022 End: 03-03-2022 Emergency department patient visit POLYSTYRENE MOLDING MACHINE TENDERMiriam Teague NP [facility] Start: 02-21-2022 Refill Soila Easton APRN, .CNP Work Phone: Internal Medicine [place] Comment on above: Refill Request Start: 02-11-2022 ambulatory Misbah Back Work Phone: Internal Medicine [facility] Start: 01-16-2022 End: 01-16-2022 Patient encounter procedure KENC Theron Teague NP [facility] Start: 12-27-2021 Refill Víctor Mcpherson APRN.BOX TOE MAKER, DNP Work Phone: [facility] Comment on above: Refill Request Start: 06-11-2017 End: 06-12-2017 Ambulatory CHING Marv JACEY Facility:[facility] Procedures Date Procedure Procedure Detail Performing Clinician Start: 04-27-2025 Iadna-dna/rna gi pthgn multiplex probe tq 6-11 Dr. Misbah Elkins MD Work Phone: Start: 04-27-[address] Jay Elkins MD Work Phone: Start: 04-27-2025 End: 04-27-[address]ardia [address] assay Dr[address] Misbah Elkins MD Work Phone: Start: 04-27-[address] Misbah Elkins MD Work Phone: Start: 04-27-20[address] Ova [address] parasites identification Dr. Jay Elkins MD Work Phone: Start: 04-27-2025 Ova&parasites direct smears concentration & id Dr. Misbah Elkins MD Work Phone: Start: 04-26-2025 Plain X-ray abdomen Dr. Misbah Elkins MD Work Phone: Start: 04-26-[address] Misbah Elkins MD Work Phone: Start: 04-19-2025 Blood count smear mcrscp w/mnl difrntl wbc count Dr. Misbah Elkins MD Work Phone: Start: 04-19-2025 Mean corpuscular hemoglobin concentration determination Dr. Misbah Elkins MD Work Phone: Start: 04-19-2025 Nucleated red blood cell count procedure Dr. Misbah Elkins MD Work Phone: Start: 04-19-2025 Platelet mean volume determination Dr. Misbah Elkins MD Work Phone: Start: 04-18-[address] Tayla Elkins MD Work Phone: Start: 04-17-[address] Misbah michelle MD Work Phone: Start: 04-17-[address] Misbah Elkins MD Work Phone: Start: 04-16-[address] Misbah Elkins MD Work Phone: Start: 04-16-2025 Serum inorganic phosphate measurement Dr. Misbah Elkins MD Work Phone: Start: 04-16-2025 Total cholesterol:HDL ratio measurement Dr. Misbah Elkins MD Work Phone: Start: 04-16-2025 Benzodiazepine measurement, urine Dr. Jennifer Elkins MD Work Phone: Start: 04-16-2025 Cocaine measurement, urine Dr. Misbah ramirez MD Work Phone: Start: 04-16-2025 Methadone measurement, urine Dr. Misbah Elkins MD Work Phone: Start: 04-16-[address] Misbah Elkins MD Work Phone: Start: 04-16-2025 Urine microscopy: red cells Dr. Misbah swann MD Work Phone: Start: 04-16-[address] Misbah valdes MD Work Phone: Start: 04-16-2025 Urnls dip stick/tablet reagent auto microscopy Dr. Misbah Elkins MD Work Phone: Start: 04-15-2025 Computed tomography of abdomen and pelvis with intravenous contrast Dr. Misbah Elkins MD Work Phone: Start: 04-15-2025 Blood count smear mcrscp w/mnl difrntl wbc count Dr. Misbah Elkins MD Work Phone: Start: 04-15-[address] Tayla Elkins MD Work Phone: Start: 04-15-2025 Mean corpuscular hemoglobin concentration determination Dr. Misbah Elkins MD Work Phone: Start: 04-15-2025 Nucleated red blood cell count procedure Dr. Misbah Elkins MD Work Phone: Start: 04-15-2025 Platelet mean volume determination Dr. Misbah Elkins MD Work Phone: Start: 04-15-[address] Msibah Elkins MD Work Phone: Start: 03-15-2025 Carbon dioxide measurement, partial pressure [...] 03-15-2025 End: 03-15-2025 Plain chest X-ray Dr. Misabh Elkins MD Work Phone: Start: 03-15-2025 Platelet [...] 02-26-2025 Platelet mean volume determination Dr. Misbah Elkins MD Work Phone: Start: 02-26-2025 Triacylglycerol [...] Phone: Start: 01-01-2025 Plain chest X-ray Dr. Misbha Elkins MD Work Phone: Start: 01-01-2025 Blood [...] Start: 12-01-2024 Esophagoscp rig transoral hypopharynx crv jasonoph Juan Senior LEI MAKER.BOX TOE MAKER Work Phone: Start: 11-07-2024 Radiologic exam chest 2 views Misbah michelle MD Work Phone: Start: 08-10-2024 Urnls dip stick/tablet rgnt auto w/o microscopy Soila Easton LEI MAKER.BOX TOE MAKER Work Phone: Start: 01-25-2024 Radiologic exam chest 2 views Tarasummer Alves son LEI MAKER.BOX TOE MAKER Work Phone: Start: 01-19-2024 X-ray of both feet Dr. Víctor Huerta Work Phone: Start: 01-11-2024 Lipid 1996 panel - Serum or Plasma Anat Gutiérrez LEI MAKER.BOX TOE MAKER Work Phone: Start: 01-04-2024 Investigation of transfusion reaction Dr. Víctor Huerta Work Phone: Start: 01-04-[address] Víctor Huerta Work Phone: Start: 01-02-2024 CT angiography of chest with contrast Start: 01-02-2024 Plain chest X-ray Start: 01-02-2024 Bacteria identified in Blood by Culture Dr. Víctor Huerta Work Phone: Start: 01-02-2024 SARS-CoV-2, Influenza & RSV (PCR) Start: 07-08-2023 Plain chest X-ray POLYSTYRENE MOLDING MACHINE TENDER-Nichole EASTON Work Phone: Start: 07-08-2023 SARS-CoV-2 & FLU Antigen (Rapid) POLYSTYRENE MOLDING MACHINE TENDER-C DIOGENES EASTON Work Phone: Start: 06-02-2023 Plain chest X-ray Start: 06-02-2023 CT of chest POLYSTYRENE MOLDING MACHINE TENDER-C SOILA EASTON Work Phone: Start: 06-02-2023 SARS-CoV-2 & FLU Antigen (Rapid) Start: 11-25-2022 Radex spine lumbosacral 2/3 views Misbah Elkins MD Work Phone: Start: 11-11-2022 Radiologic exam chest 2 views Misbah michelle MD Work Phone: Start: 11-04-2022 Plain chest X-ray POLYSTYRENE MOLDING MACHINE TENDER-Nichole EASTON Work Phone: Start: 11-04-2022 CT of chest, abdomen and pelvis without contrast POLYSTYRENE MOLDING MACHINE TENDER-Nichole EASTON Work Phone: Start: 11-02-2022 Plain chest X-ray POLYSTYRENE MOLDING MACHINE TENDER-Nichole EASTON Work Phone: Start: 10-24-2022 Renal function 2000 panel - Serum or Plasma Demarco Moya Start: 10-22-2022 End: 10-22-2022 [facility] xm&eval intermediate estab pt Inflammation of orbital region Jaime Aggarwal MD Work Phone: Comment on above: Inflammation of orbital region (Primary Dx) Start: 10-21-2022 End: 10-21-2022 [facility] xm&eval intermediate estab pt Orbital inflammation [employer] Route [employer] Comment on above: Orbital inflammation (Primary Dx) Start: 10-19-2022 CT of head with contrast POLYSTYRENE MOLDING MACHINE TENDER-Nichole EASTON Work Phone: Start: 08-22-2022 CT angiography of chest with contrast POLYSTYRENE MOLDING MACHINE TENDER-C SOILA Work Phone: Start: 08-22-2022 Plain chest X-ray POLYSTYRENE MOLDING MACHINE TENDER-C SOILA Work Phone: Start: 07-18-2022 INFLUENZA VACCINE QUADRIVALENT 6 MO - 64 YRS IM Soila Easton LEI MAKER.BOX TOE MAKER Work Phone: Start: 05-28-2022 CT of chest Start: 05-02-2022 Us abdominal real time w/image limited Soila Easton LEI MAKER.BOX TOE MAKER Work Phone: Start: 04-17-2022 Lipid 1996 panel - Serum or Plasma Soila Easton LEI MAKER.BOX TOE MAKER Work Phone: Start: 03-03-2022 SARS-CoV-2 & FLU Antigen (Rapid) POLYSTYRENE MOLDING MACHINE TENDER-C Onesimo Teague POLYSTYRENE MOLDING MACHINE TENDER Work Phone: Start: 03-03-2022 Plain chest X-ray POLYSTYRENE MOLDING MACHINE TENDER-C Theron Teague POLYSTYRENE MOLDING MACHINE TENDER Work Phone: Start: 01-10-2021 Colonoscopy Víctor Mcpherson LEI MAKER.[facility], DNP Work Phone: Start: 08-28-2020 Mammography Víctor Mcpherson LEI MAKER.[facility], DNP Work Phone: Appendectomy Soila Valdes Work Phone: Bacteria identified in Blood by Culture POLYSTYRENE MOLDING MACHINE TENDER-C SOILA Work Phone: Bacteria identified in Blood by Culture POLYSTYRENE MOLDING MACHINE TENDER-C SOILA Work Phone: Cholecystectomy Soila Valdes Work Phone: Enteric Bacteriology POLYSTYRENE MOLDING MACHINE TENDER-C DIOGENES Borges Work Phone: H/O: surgery Gabby SILVA H/O: tubal ligation History of t ubal ligation POLYSTYRENE MOLDING MACHINE TENDER-C Theron Teague POLYSTYRENE MOLDING MACHINE TENDER Work Phone: History of appendectomy History of appendectomy POLYSTYRENE MOLDING MACHINE TENDER-C Theron Teague POLYSTYRENE MOLDING MACHINE TENDER Work Phone: Respiratory Panel (PCR) POLYSTYRENE MOLDING MACHINE TENDER-C SOILA Work Phone: Respiratory syncytia l virus antigen assay POLYSTYRENE MOLDING MACHINE TENDER-Nichole EASTON Work Phone: SARS-CoV-2 & FLU Antigen (Rapid) SARS-CoV-2 & FLU Antigen (Rapid) POLYSTYRENE MOLDING MACHINE TENDER-Nichole EASTON Work Phone: SARS-CoV-2 & FLU Antigen (Rapid) POLYSTYRENE MOLDING MACHINE TENDER-Nichole EASTON Work Phone: SARS-CoV-2 & FLU Antigen (Rapid) POLYSTYRENE MOLDING MACHINE TENDER-Nichole EASOTN Work Phone: Urine culture POLYSTYRENE MOLDING MACHINE TENDER-Nichole EASTON Work Phone: Plan of Treatment Date Care Activity Detail Author Start: 08-12-2030 Tetanus vaccination Tetanus (Td or Tdap) Booster [facility] Start: 01-10-2029 Lipid panel Lipid Screening [facility] Start: 2028 PNEUMOCOCCAL (3 - PPSV23 if available, else PCV20) PNEUMOCOCCAL (3 - PPSV23 if available, else PCV20) [facility] Start: 2028 PNEUMOCOCCAL (3 - PPSV23 or PCV20) PNEUMOCOCCAL (3 - PPSV23 or PCV20) [facility] Start: 2028 Pneumococcal vaccination [facility] Start: 03-23-2028 Diabetes Screening Diabetes Screening [facility] Start: 03-22-2028 Diabetes Screening Diabetes Screening [facility] Start: 03-16-2028 Diabetes Screening Diabetes Screening [facility] Start: 12-20-2027 Diabetes Screening Diabetes Screening [facility] Start: 08-12-2027 Diabetes Screening Diabetes Screening [facility] Start: 04-17-2027 Cholesterol [Mass/volume] in Serum or Plasma Cholesterol [facility] Start: 04-17-2027 Lipid 1996 panel - Serum or Plasma Lipid Screening [facility] Start: 04-17-2027 Lipid panel Lipid Screening [facility] Start: 04-17-2027 LIPID SCREEN LIPID SCREEN [facility] Start: 01-10-2027 Diabetes Screening Diabetes Screening [facility] Start: 07-19-2026 LIPID SCREEN LIPID SCREEN [facility] Start: 04-25-2026 Annual PCP Team Chronic Disease Visit Annual PCP Team Chronic Disease Visit [facility] Start: 04-10-2026 Annual PCP Team Chronic Disease Visit Annual PCP Team Chronic Disease Visit [facility] Start: 02-19-2026 DIABETES SCREEN DIABETES SCREEN [facility] Start: 02-19-2026 Diabetes Screening Diabetes Screening [facility] Start: 01-13-2026 Annual PCP Team Chronic Disease Visit Annual PCP Team Chronic Disease Visit [facility] Start: 01-13-2026 BP Controlled (<130/80) BP Controlled (<130/80) [facility] in Start: 01-13-2026 zzBP Controlled (<130/80) (Retired) zzBP Controlled (<130/80) (Retired) [facility] Start: 12-19-2025 Annual PCP Team Chronic Disease Visit Annual PCP Team Chronic Disease Visit [facility] Start: 12-19-2025 BP Controlled (<130/80) BP Controlled (<130/80) [facility] in Start: 11-26-2025 DIABETES SCREEN DIABETES SCREEN [facility] Start: 11-11-2025 DIABETES SCREEN DIABETES SCREEN [facility] Start: 11-07-2025 Annual PCP Team Chronic Disease Visit Annual PCP Team Chronic Disease Visit [facility] Start: 11-07-2025 BP Controlled (<130/80) BP Controlled (<130/80) [facility] in Start: 10-20-2025 DIABETES SCREEN DIABETES SCREEN [facility] Start: 08-15-2025 Annual PCP Team Chronic Disease Visit Annual PCP Team Chronic Disease Visit [facility] Start: 08-15-2025 BP Controlled (<130/80) BP Controlled (<130/80) [facility] Start: 08-10-2025 Annual PCP Team Chronic Disease Visit Annual PCP Team Chronic Disease Visit [facility] Start: 08-05-2025 Annual PCP Team Chronic Disease Visit Annual PCP Team Chronic Disease Visit [facility] Start: 08-05-2025 BP Controlled (<130/80) BP Controlled (<130/80) [facility] Start: 07-10-2025 End: 07-10-2025 Patient encounter procedure 07/10/2025 11:00 AM EDT Appointment Gastroenterology [address] [address] Jane Farrell MD [address] [address] Chronic recurrent pancreatitis (HCC) [K86.1]4month f/u Gastroenterology Comment on above: Chronic recurrent pancreatitis (HCC) [K8 6.1]4month f/u Start: 05-29-2025 Influenza vaccination [facility] Start: 05-26-2025 End: 05-26-2025 Patient encounter procedure 05/26/2025 11:00 AM EDT Office Visit [facility] [place] [address] [place] [address] Soila Easton APRN.BOX TOE MAKER [address] [place] [address] 1 mth fu [facility] [place] Comment on above: 1 mth fu Start: 05-18-2025 Annual PCP Team Chronic Disease Visit Annual PCP Team Chronic Disease Visit [facility] Start: 05-18-2025 BP Controlled (<130/80) BP Controlled (<130/80) [facility] in Start: 05-12-2025 End: 05-12-2025 Patient encounter procedure Vasculary Surgery Comment on above: Stenosis of left carotid artery [I65.22] Subclavian arterial stenosis [I77.1] Start: 04-27-2025 End: 04-27-2025 [facility] Start: 04-25-2025 End: 04-25-2025 Patient encounter procedure 04/25/2025 3:40 PM EDT Office Visit [facility] [place] [address] [place] [address] Misbah Elkins MD [address] [place] [address] [facility] Hypertensive Urgency 04/15-04/19 [facility] [place] Comment on above: [facility] Start: 04-25-2025 End: 04-25-2025 ambulatory 04/25/2025 10:00 AM EDT [facility] Neurology Pain [address] [place] [address] Milly Saleh APRN.BOX TOE MAKER, DNP [address] [place], [place] [id number] Chronic recurrent pancreatitis (HCC) [K86.1]; 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]; Chronic RUQ pain [R10.11, G89.29] Neurology Pain Comment on above: Chronic recurrent pancreatitis (HCC) [K8 6.1]; 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]; Chronic RUQ pain [R10.11, G89.29] Start: 04-19-2025 Patient discharge [facility] Start: 04-18-2025 End: 04-18-2025 Patient encounter procedure 04/18/2025 2:30 PM EDT Office Visit Gastroenterology [address] [address] Juan Senior APRN.BOX TOE MAKER [address] [place] [address] Follow up ERCP Gastroenterology Comment on above: Follow up ERCP Start: 04-18-2025 Care planning and problem solving actions [facility] Start: 04-17-2025 DIABETES SCREEN DIABETES SCREEN [facility] Start: 04-17-2025 End: 04-17-2025 Patient encounter procedure 04/17/2025 1:00 PM EDT Office Visit [facility] [place] [address] [place] [address] Soila Easton APRN.BOX TOE MAKER [address] [place] [address] 3 month follow up [facility] [place] Comment on above: 3 month follow up Start: 04-16-2025 Application of intermittent pneumatic compression device [facility] Start: 04-16-2025 Following clinical pathway protocol [facility] Start: 04-16-2025 Aspiration precautions [facility] Start: 04-16-2025 Assessment of risk of venous thromboembolism [facility] Start: 04-16-2025 Insertion of catheter into peripheral vein [facility] Start: 04-16-2025 Measuring intake and output [facility] Start: 04-16-2025 Oxygen therapy [facility] Start: 04-16-2025 Providing care according to standard [facility] Start: 04-16-2025 Provision of activity privileges [facility] Start: 04-16-2025 Referral to service [facility] Start: 04-16-2025 [facility] Start: 04-16-2025 Verification routine [facility] Start: 04-16-2025 Admission procedure [facility] Start: 04-16-2025 Hospital admission, emergency, from emergency room, medical nature [facility] Start: 04-16-2025 Inhalation therapy procedure [facility] Start: 04-12-2025 End: 04-12-2025 Patient encounter procedure 04/12/2025 11:00 AM EDT Office Visit Pulmonary Medicine [address] [facility] [place] [place] [address] Madeline Sebastian MD [address] [place] [facility] [address] hosp follow up [facility] Pulmonary Medicine Comment on above: hosp follow up [facility] Start: 04-10-2025 End: 04-10-2025 Patient encounter procedure 04/10/2025 1:40 PM EDT Office Visit [facility] [place] [address] [facility] [place] [address] Nicolas Greer APRN.GATE ATTENDANT [address] [facility] [place] [address] rescheduled from 04/04 [facility] [place] Comment on above: rescheduled from 04/04 Start: 04-04-2025 End: 04-04-2025 Patient encounter procedure 04/04/2025 3:40 PM EDT Office Visit [facility] [place] [address] [facility] [place] [address] Misbah Elkins MD [address] [facility] [place] [address] hosp follow up from [facility] for pneumonia 03/15-03/23 [facility] [place] Comment on above: hosp follow up from [facility] for pneumonia 03/15-03/23 Start: 04-04-2025 End: 04-04-2025 ambulatory 04/04/2025 2:30 PM EDT [facility] Neurology Pain [address] [place] [address] Milly Saleh APRN.BOX TOE MAKER, DNP [address] [place] [address] Chronic recurrent pancreatitis (HCC) [K86.1]; 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]; Chronic RUQ pain [R10.11, G89.29] Neurology Pain Comment on above: Chronic recurrent pancreatitis (HCC) [K8 6.1]; 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]; Chronic RUQ pain [R10.11, G89.29] Start: 03-29-2025 End: 03-29-2025 Patient encounter procedure 03/29/2025 11:40 AM EDT Office Visit [facility] [place] [address] [place] [address] Kervin Salmeron MD [address] [place] [address] hosp follow up [facility] [place] Comment on above: hosp follow up [facility] Start: 03-15-2025 Patient discharge [facility] Start: 03-15-2025 End: 03-15-2025 [facility] Start: 03-15-2025 Airway suction technique [facility] Start: 03-15-2025 End: 03-15-2025 Patient encounter procedure 03/15/2025 5:40 PM EDT Office Visit [facility] [place] [address] [place] [address] Soila Easton APRN.BOX TOE MAKER [address] [place] [address] blood pressure low at ERCP procedure on 03/10 at [facility] [place] Comment on above: blood pressure low at ERCP procedure on 03/10 at [facility] Start: 03-15-2025 Consultation [facility] Start: 03-15-2025 Consultation [facility] Start: 03-15-2025 Continuous pulse oximetry [facility] Start: 03-15-2025 Care planning and problem solving actions [facility] Start: 03-15-2025 Following clinical pathway protocol [facility] Start: 03-15-2025 [facility] Start: 03-14-2025 End: 03-14-2025 ambulatory 03/14/2025 10:00 AM EDT [facility] Neurology Pain [address] [place] [address] Milly Saleh APRN.BOX TOE MAKER, DNP [address] [place] [address] Chronic recurrent pancreatitis (HCC) [K86.1]; 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]; Chronic RUQ pain [R10.11, G89.29] Neurology Pain Comment on above: Chronic recurrent pancreatitis (HCC) [K8 6.1]; 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]; Chronic RUQ pain [R10.11, G89.29] Start: 03-14-2025 Triacylglycerol lipase measurement [facility] Start: 03-14-2025 Following clinical pathway protocol [facility] Start: 03-14-2025 Ambulation without limitation [facility] Start: 03-14-2025 Assessment of risk of venous thromboembolism [facility] Start: 03-14-2025 Insertion of catheter into peripheral vein [facility] Start: 03-14-2025 Oxygen therapy [facility] Start: 03-14-2025 Providing care according to standard [facility] Start: 03-14-2025 [facility] Start: 03-14-2025 Consultation [facility] Start: 03-14-2025 Inhalation therapy procedure [facility] Start: 03-14-2025 Patient referral to dietitian [facility] Start: 03-13-2025 Verification routine [facility] Start: 03-13-2025 Admission procedure [facility] Start: 03-13-2025 Hospital admission, emergency, from emergency room, medical nature [facility] Start: 03-13-2025 End: 03-13-2025 [facility] Start: 03-10-2025 End: 03-10-2025 Patient encounter procedure 03/10/2025 1:00 PM EDT Appointment Gastroenterology [address] [address] Jane Farrell MD [address] [place] [address] Other chronic pancreatitis (HCC) [K86.1] Gastroenterology Comment on above: Other chronic pancreatitis (HCC) [K86.1] Start: 02-26-2025 End: 02-26-2025 [facility] Start: 02-06-2025 End: 02-06-2025 Patient encounter procedure 02/06/2025 9:00 AM EDT Appointment Gastroenterology [address] [address] Jane Farrell MD [address] [place] [address] Other chronic pancreatitis (HCC) [K86.1]w/o interventions Gastroenterology Comment on above: Other chronic pancreatitis (HCC) [K86.1] w/o interventions Start: 01-30-2025 End: 01-30-2025 Anesthesia consultation 01/30/2025 11:10 AM EDT PAT Pre Anesthesia [address] [place] [address] pre procedure 02/06 Pre Anesthesia Comment on above: pre procedure 02/06 Start: 01-27-2025 [facility] Start: 01-27-2025 [facility] Start: 01-24-2025 Annual PCP Team Chronic Disease Visit Annual PCP Team Chronic Disease Visit [facility] Start: 01-13-2025 End: 01-13-2025 Patient encounter procedure [facility] [place] Comment on above: multiple concerns multiple concerns. S ee TE from 01/09/25. Start: 01-11-2025 Annual PCP Team Chronic Disease Visit Annual PCP Team Chronic Disease Visit [facility] Start: 01-11-2025 BP Controlled (<130/80) BP Controlled (<130/80) [facility] Start: 01-05-2025 End: 01-05-2025 ambulatory 01/05/2025 1:00 PM EDT [facility] Neurology Pain [address] [place] [address] Milly Saleh APRN.BOX TOE MAKER, DNP [address] [place] [address] Chronic recurrent pancreatitis (HCC) [K86.1]; 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]; Chronic RUQ pain [R10.11, G89.29] Neurology Pain Comment on above: Chronic recurrent pancreatitis (HCC) [K8 6.1]; 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]; Chronic RUQ pain [R10.11, G89.29] Start: 01-02-2025 End: 01-02-2025 Patient encounter procedure 01/02/2025 8:30 AM EDT Office Visit Neurology Pain [address] [place] [address] [place] [address] [place] [address] [facility] TO [facility]) Neurology Pain Comment on above: CON[facility]ULT TO [facility] (CHR ONIC PAIN) Start: 01-01-2025 [facility] Start: 01-01-2025 [facility] Start: 12-27-2024 End: 12-27-2024 Patient encounter procedure 12/27/2024 1:00 PM EDT Appointment Gastroenterology [address] [address] Jane Farrell MD [address] [address] Other chronic pancreatitis (HCC) [K86.1] Gastroenterology Comment on above: Other chronic pancreatitis (HCC) [K86.1] Start: 12-24-2024 [facility] Start: 12-19-2024 End: 03-20-2025 CBC W Auto Differential panel - Blood [facility] Comment on above: Expected: 12/19/2024, Expires: Start: 12-19-2024 End: 03-20-2025 Comprehensive metabolic 2000 panel - Serum or Plasma [facility] Comment on above: Expected: 12/19/2024, Expires: Start: 12-19-2024 End: 03-20-2025 Lipase [Enzymatic activity/volume] in Serum or Plasma [facility] Comment on above: Expected: 12/19/2024, Expires: Start: 12-16-2024 Patient referral [facility] Work Phone: Start: 12-15-2024 Annual PCP Team Chronic Disease Visit Annual PCP Team Chronic Disease Visit [facility] Start: 12-15-2024 BP Controlled (<130/80) BP Controlled (<130/80) [facility] Start: 12-12-2024 Patient discharge [facility] Start: 12-12-2024 End: 12-12-2024 Patient encounter procedure 12/12/2024 11:00 AM EDT Office Visit [facility] [place] [address] [place] [address] Misbah Elkins MD [address] [place] [address] 1 Month F/U [facility] [place] Comment on above: 1 Month F/U Start: 12-10-2024 Respiratory Culture Respiratory Culture [facility] Start: 12-09-2024 Referral to gastroenterology service [facility] Start: 12-08-2024 Videoswallow [facility] Start: 12-08-2024 Inhalation therapy procedure [facility] Start: 12-07-2024 Speech therapy assessment [facility] Start: 12-07-2024 Continuous pulse oximetry [facility] Start: 12-07-2024 [facility] Start: 12-05-2024 Referral to service [facility] Start: 12-05-2024 Consultation [facility] Start: 12-05-2024 Continuous positive airway pressure ventilation treatment [facility] Start: 12-04-2024 Following clinical pathway protocol [facility] Start: 12-04-2024 Ambulation without limitation [facility] Start: 12-04-2024 Assessment of risk of venous thromboembolism [facility] Start: 12-04-2024 Bacteria identified in Sputum by Culture [facility] Start: 12-04-2024 Catheterization of vein [facility] Start: 12-04-2024 Incentive spirometry [facility] Start: 12-04-2024 Insertion of catheter into peripheral vein [facility] Start: 12-04-2024 Measuring intake and output [facility] Start: 12-04-2024 Oxygen therapy [facility] Start: 12-04-2024 Providing care according to standard [facility] Start: 12-04-2024 Referral to service [facility] Start: 12-04-2024 Tobacco use cessation education [facility] Start: 12-04-2024 [facility] Start: 12-04-2024 Respiratory pathogens DNA and RNA panel - Respiratory specimen by KANDY with probe detection [facility] Start: 12-04-2024 Verification routine [facility] Start: 12-04-2024 Admission procedure [facility] Start: 12-04-2024 Hospital admission, emergency, from emergency room, medical nature [facility] Start: 12-04-2024 End: 12-04-2024 [facility] Start: 12-01-2024 End: 12-01-2024 Patient encounter procedure 12/01/2024 10:00 AM EST Appointment Gastroenterology [address] [place] [address] Jane Farrell MD [address] [place] [address] Chronic recurrent pancreatitis (HCC) [K86.1] Gastroenterology Comment on above: Chronic recurrent pancreatitis (HCC) [K8 6.1] Start: 11-29-2024 End: 02-28-2025 Lipid 1996 panel - Serum or Plasma LIPID PANEL BASIC Lab Routine Hyperlipidemia Expected: 11/29/2024, Expires: 02/28/2025 [facility] Work Phone: Comment on above: Expected: 11/29/2024, Expires: Start: 11-07-2024 End: 11-07-2024 Patient encounter procedure [facility] [place] Comment on above: 3 month follow up 3 month follow up-di scuss elevated WBC Start: 11-02-2024 End: 11-02-2024 Patient encounter procedure 11/02/2024 2:00 PM EST Office Visit Gastroenterology [address] [address] Juan Senior APRN.BOX TOE MAKER [address] [place] [address] Chronic recurrent pancreatitis (HCC) [K86.1]; 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 chronic [...] End: 08-15-2024 Patient encounter procedure [facility] [place] Comment on above: Follow up SOB Upper abdominal pain [R10.10] Start: 08-10-2024 End: 11-09-2024 Amylase [Enzymatic activity/volume] in Serum or Plasma AMYLASE Lab Routine Upper abdominal pain Nausea Expected: 08/10/2024, Expires: 11/09/2024 [facility] Comment on above: Expected: 08/10/2024, Expires: Start: 08-10-2024 End: 11-09-2024 Comprehensive metabolic 2000 panel - Serum or Plasma COMPREHENSIVE METABOLIC PANEL Lab Routine Upper abdominal pain Nausea Expected: 08/10/2024, Expires: 11/09/2024 [facility] Comment on above: Expected: 08/10/2024, Expires: Start: 08-10-2024 End: 11-09-2024 Hemoglobin A1c in Blood HEMOGLOBIN A1C Lab Routine Urinary incontinence, unspecified type Urinary frequency Elevated glucose Expected: 08/10/2024, Expires: 11/09/2024 [facility] Comment on above: Expected: 08/10/2024, Expires: Start: 08-10-2024 End: 11-09-2024 Lipase [Enzymatic activity/volume] in Serum or Plasma LIPASE Lab Routine Upper abdominal pain Nausea Expected: 08/10/2024, Expires: 11/09/2024 [facility] Work Phone: Comment on above: Expected: 08/10/2024, Expires: Start: 08-05-2024 End: 11-04-2024 CBC W Auto Differential panel - Blood [facility] Work Phone: Comment on above: Expected: 08/05/2024, Expires: Start: 07-13-2024 End: 07-13-2024 Patient encounter procedure 07/13/2024 3:00 PM EDT Office Visit [facility] [place] [address] [place], [place] [id number] Soila Easton APRN.BOX TOE MAKER [address] [place], [place] [address] medication f/u [facility] [place] Comment on above: medication f/u Start: 07-05-2024 HPV TESTING HPV TESTING [facility] Start: 07-05-2024 Screening for malignant neoplasm of cervix HPV Testing [facility] Start: 06-21-2024 End: 06-21-2024 Patient encounter procedure 06/21/2024 2:00 PM EDT Office Visit [facility] [place] [address] [place] [address] Misbah Elkins MD [address] [place] [address] med check [facility] [place] Comment on above: med check Start: 05-29-2024 Covid-19 Vaccine () Covid-19 Vaccine () [facility] Start: 05-29-2024 Covid-19 Vaccine () Covid-19 Vaccine () [facility] Start: 05-29-2024 Influenza vaccination [facility] Start: 05-23-2024 End: 05-23-2024 Patient encounter procedure 05/23/2024 1:00 PM EDT Office Visit [facility] [place] [address] [place] [address] Soila Easton APRN.BOX TOE MAKER [address] [place] [address] medication f/u [facility] [place] Comment on above: medication f/u Start: 05-17-2024 End: 05-17-2024 Patient encounter procedure 05/17/2024 4:00 PM EDT Office Visit [facility] [place] [address] [place] [address] Misbah Elkins MD [address] [place] [address] medication follow up [facility] [place] Comment on above: medication follow up Start: 05-10-2024 End: 05-10-2024 Patient encounter procedure 05/10/2024 1:40 PM EDT Office Visit [facility] [place] [address] [place] [address] Soila Easton APRN.BOX TOE MAKER [address] [place] [address] 3 month follow up [facility] Comment on above: 3 month follow up [facility] Start: 04-21-2024 End: 04-21-2024 Patient encounter procedure 04/21/2024 8:20 AM EDT Office Visit [facility] [place] [address] [place] [address] Soila Easton APRN.BOX TOE MAKER [address] [place] [address] 3 month follow up [facility] Comment on above: 3 month follow up [facility] Start: 04-15-2024 ANNUAL PCP TEAM CHRONIC DISEASE VISIT ANNUAL PCP TEAM CHRONIC DISEASE VISIT [facility] Start: 04-15-2024 BP CONTROLLED (<130/80) BP CONTROLLED (<130/80) [facility] Start: 03-26-2024 DIABETES SCREEN DIABETES SCREEN [facility] Start: 03-18-2024 End: 03-18-2024 Patient encounter procedure 03/18/2024 1:20 PM EDT Office Visit [facility] [place] [address] [facility] [place] [address] Soila Easton APRN.BOX TOE MAKER [address] [place] [address] 3 month follow up [facility] [place] Comment on above: 3 month follow up [facility] Start: 01-25-2024 End: 01-25-2024 Patient encounter procedure 01/25/2024 1:20 PM EDT Office Visit [facility] [place] [address] [facility] [place] [place] [address] Tara Youngblood APRN.BOX TOE MAKER [address] [place] [address] [facility] ER follow up, acute pain right foot and ankle, no clot [facility] [place] Comment on above: [facility] ER follow up, acute pain right foot and ankle, no clot Start: 01-19-2024 [facility] Start: 01-19-2024 End: 04-19-2024 Basic metabolic 2000 panel - Serum or Plasma BASIC METABOLIC PANEL Lab Routine Hyponatremia Expected: 01/19/2024 (Approximate), Expires: 04/19/2024 [facility] Work Phone: Comment on above: Expected: 01/19/2024 (Approximate), Expi res: 04/19/2024 Start: 01-19-2024 End: 04-19-2024 CBC W Auto Differential panel - Blood COMPLETE BLOOD COUNT AND DIFFERENTIAL Lab Routine Leukocytosis, unspecified type Expected: 01/19/2024 (Approximate), Expires: 04/19/2024 [facility] Work Phone: Comment on above: Expected: 01/19/2024 (Approximate), Expi res: 04/19/2024 Start: 01-11-2024 Colonoscopy COLONOSCOPY [facility] Start: 01-11-2024 COLORECTAL CANCER SCREENING COLORECTAL CANCER SCREENING [facility] Start: 01-11-2024 Screening for malignant neoplasm of colon [facility] Start: 01-05-2024 Patient discharge [facility] Start: 01-05-2024 Blood chemistry [facility] Start: 01-04-2024 Respiratory microbial culture Respiratory Culture [facility] Start: 01-04-2024 [facility] Start: 01-03-2024 Respiratory secretion precautions [facility] Start: 01-02-2024 Assessment of risk of venous thromboembolism [facility] Start: 01-02-2024 Inhalation therapy procedure [facility] Start: 01-02-2024 Insertion of catheter into peripheral vein [facility] Start: 01-02-2024 Introduction of urinary catheter [facility] Start: 01-02-2024 Measuring intake and output [facility] Start: 01-02-2024 Oxygen therapy [facility] Start: 01-02-2024 Providing care according to standard [facility] Start: 01-02-2024 Provision of activity privileges [facility] Start: 01-02-2024 Referral to service [facility] Start: 01-02-2024 Tobacco use cessation education [facility] Start: 01-02-2024 [facility] Start: 01-02-2024 Following clinical pathway protocol [facility] Start: 01-02-2024 Legionella pneumophila Ag [Presence] in Urine [facility] Start: 01-02-2024 Respiratory pathogens DNA and RNA panel - Respiratory specimen by KANDY with probe detection [facility] Start: 01-02-2024 End: 01-02-2024 Streptococcus pneumoniae antigen assay [facility] Start: 01-02-2024 Hospital admission, emergency, from emergency room, medical nature [facility] Start: 01-02-2024 Admission procedure [facility] Start: 01-02-2024 Verification routine [facility] Start: 01-02-2024 End: 01-02-2024 Blood culture [facility] Start: 01-02-2024 [facility] Start: 01-02-2024 Bacteria identified in Blood by Culture Blood Culture [facility] Start: 01-02-2024 Legionella Antigen Legionella Antigen [facility] Start: 01-02-2024 Streptococcus pneumoniae Antigen (M Streptococcus pneumoniae Antigen (M [facility] Start: 12-27-2023 ANNUAL PCP TEAM CHRONIC DISEASE VISIT ANNUAL PCP TEAM CHRONIC DISEASE VISIT [facility] Start: 12-16-2023 End: 03-16-2024 25-hydroxyvitamin D3 [Mass/volume] in Serum or Plasma VITAMIN D 25 HYDROXY Lab Routine Vitamin D deficiency Expected: 12/16/2023, Expires: 03/16/2024 [facility] Work Phone: Comment on above: Expected: 12/16/2023, Expires: Start: 12-16-2023 End: 03-16-2024 CBC W Auto Differential panel - Blood CBC + DIFF Lab Routine 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 chronic pancreatitis (HCC) Tachycardia Hyperlipidemia, unspecified hyperlipidemia type Insomnia, unspecified type Vitamin D deficiency Chronic obstructive pulmonary disease, unspecified COPD type (HCC) Prediabetes Expected: 12/16/2023, Expires: 03/16/2024 [facility] Work Phone: Comment on above: Expected: 12/16/2023, Expires: Start: 12-16-2023 End: 03-16-2024 Comprehensive metabolic 2000 panel - Serum or Plasma COMP METABOLIC PANEL Lab Routine 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 chronic pancreatitis (HCC) Tachycardia Hyperlipidemia, unspecified hyperlipidemia type Insomnia, unspecified type Vitamin D deficiency Chronic obstructive pulmonary disease, unspecified COPD type (HCC) Prediabetes Expected: 12/16/2023, Expires: 03/16/2024 [facility] Work Phone: Comment on above: Expected: 12/16/2023, Expires: Start: 12-16-2023 End: 03-16-2024 Lipid 1996 panel - Serum or Plasma LIPID PANEL BASIC Lab Routine Hyperlipidemia, unspecified hyperlipidemia type Expected: 12/16/2023, Expires: 03/16/2024 [facility] Work Phone: Comment on above: Expected: 12/16/2023, Expires: Start: 11-29-2023 ANNUAL PCP TEAM CHRONIC DISEASE VISIT ANNUAL PCP TEAM CHRONIC DISEASE VISIT [facility] Start: 11-29-2023 BP CONTROLLED (<130/80) BP CONTROLLED (<130/80) [facility] Start: 11-27-2023 BP CONTROLLED (<130/80) BP CONTROLLED (<130/80) [facility] Start: 11-25-2023 ANNUAL PCP TEAM CHRONIC DISEASE VISIT ANNUAL PCP TEAM CHRONIC DISEASE VISIT [facility] Start: 11-11-2023 ANNUAL PCP TEAM CHRONIC DISEASE VISIT ANNUAL PCP TEAM CHRONIC DISEASE VISIT [facility] Start: 11-11-2023 BP CONTROLLED (<130/80) BP CONTROLLED (<130/80) [facility] Start: 10-20-2023 Basic metabolic 2000 panel - Serum or Plasma Basic Metabolic Panel [facility] Start: 08-31-2023 Pneumococcal Vaccine: 50+ (3 of 3 - PCV20 or PCV21) Pneumococcal Vaccine: 50+ (3 of 3 - PCV20 or PCV21) [facility] Start: 08-27-2023 ANNUAL PCP TEAM CHRONIC DISEASE VISIT ANNUAL PCP TEAM CHRONIC DISEASE VISIT [facility] Start: 07-18-2023 ANNUAL PCP TEAM CHRONIC DISEASE VISIT ANNUAL PCP TEAM CHRONIC DISEASE VISIT [facility] Start: 07-18-2023 BP CONTROLLED (<130/80) BP CONTROLLED (<130/80) [facility] Start: 07-08-2023 [facility] Start: 06-30-2023 Patient referral [facility] Work Phone: Start: 06-02-2023 [facility] Start: 06-02-2023 CT of chest Low Dose CT Lung Screening [facility] Start: 06-02-2023 CT THORAX LUNG CANCER SCR C- CT THORAX LUNG CANCER SCR C- [facility] Start: 05-29-2023 Covid-19 Vaccine ( season) Covid-19 Vaccine ( season) [facility] Start: 05-29-2023 Influenza vaccination [facility] Start: 05-27-2023 BP CONTROLLED (<130/80) BP CONTROLLED (<130/80) [facility] Start: 2023 RSV Vaccine (1 - 1-dose 60+ series) RSV Vaccine (1 - 1-dose 60+ series) [facility] Start: 2023 RSV Vaccine (1 - Risk 60-74 years 1-dose series) RSV Vaccine (1 - Risk 60-74 years 1-dose series) [facility] Start: 07-21-2023 ANNUAL PCP TEAM CHRONIC DISEASE VISIT ANNUAL PCP TEAM CHRONIC DISEASE VISIT [facility] Start: 04-17-2023 BP CONTROLLED (<130/80) BP CONTROLLED (<130/80) [facility] Start: 04-17-2023 COVID-19 VACCINE (3 - Booster for Pfizer series) COVID-19 VACCINE (3 - Booster for Pfizer series) [facility] Comment on above: Postponed from 12/27/2021 (Declined at t his time) Postponed from 09/23 (Declined at this time) Start: 04-17-2023 COVID-19 VACCINE (3 - Pfizer series) COVID-19 VACCINE (3 - Pfizer series) [facility] Comment on above: Postponed from 09/23/2021 (Declined at t his time) Start: 04-17-2023 HIV SCREENING HIV SCREENING [facility] Comment on above: Postponed from 1981 (Declined at t his time) Start: 04-17-2023 PAP TESTING PAP TESTING [facility] Comment on above: Postponed from 07/05/2020 (Declined at t his time) Start: 04-17-2023 SHINGRIX VACCINE (1 of 2) SHINGRIX VACCINE (1 of 2) [facility] Comment on above: Postponed from 2013 (Declined at t his time) Start: 04-15-2023 End: 06-15-2023 Hepatic function 2000 panel - Serum or Plasma [facility] Work Phone: Comment on above: Expected: 04/15/2023, Expires: 3 Start: 04-08-2023 Zoledronic acid therapy ALPHA-1 ANTITRYPSIN DEFICIENCY SCREENING [facility] Comment on above: Postponed from 1993 (Declined at t his time) Start: 03-10-2023 End: 05-10-2023 Lipid 1996 panel - Serum or Plasma LIPID PANEL BASIC Lab Routine Hyperlipidemia Expected: 03/10/2023, Expires: 05/10/2023 [facility] Work Phone: Comment on above: Expected: 03/10/2023, Expires: 3 Start: 03-09-2023 EPVPLASCARITO, Provider: Yrn Ortega, Status: Pen, Time: 1:15 PM EPVPLASTIC, Provider: Yrn Ortega, Status: Pen, Time: 1:15 PM [id number] l [id number] Work Phone: Start: 02-28-2023 End: 04-30-2023 Hemoglobin A1c in Blood HGB A1C Lab Routine Prediabetes Expected: 02/28/2023 (Approximate), Expires: 04/30/2023 [facility] Work Phone: Comment on above: Expected: 02/28/2023 (Approximate), Expi res: 04/30/2023 Start: 01-28-2023 NPVPLASTIC, Provider: Yrn Ortega, Status: Pen, Time: 2:00 PM NPVPLASTIC, Provider: Yrn Ortega, Status: Pen, Time: 2:00 PM [id number] l [id number] Work Phone: Start: 12-15-2022 End: 12-15-2022 Patient encounter procedure 12/15/2022 Office Visit Family Practice Lalito Hoskins MD [address] [place] [address], [address] [place] [address] [facility] Start: 12-03-2022 NPVPLASTIC, Provider: Yrn Ortega, Status: Pen, Time: 3:30 PM NPVPLASTIC, Provider: Yrn Ortega, Status: Pen, Time: 3:30 PM IQ-[id number]-[id number] Moore Work Phone: Start: 12-03-2022 Patient encounter procedure Ophthalmology [facility] Start: 11-28-2022 End: 01-28-2023 Basic metabolic 2000 panel - Serum or Plasma BASIC METABOLIC PNL Lab Routine Prediabetes Expected: 11/28/2022, Expires: 01/28/2023 [facility] Work Phone: Comment on above: Expected: 11/28/2022, Expires: Start: 11-27-2022 End: 01-27-2023 Urinalysis complete panel - Urine URINALYSIS, WITH MICROSCOPIC Lab Routine CHUY (acute kidney injury) (HCC) Expected: 11/27/2022, Expires: 01/27/2023 [facility] Work Phone: Comment on above: Expected: 11/27/2022, Expires: Start: 11-26-2022 End: 01-26-2023 Hemoglobin A1c in Blood [facility] Work Phone: Comment on above: Expected: 11/26/2022, Expires: 3 Start: 11-26-2022 End: 01-26-2023 VITAMIN B1 (THIAMINE), WHOLE BLOOD [facility] Work Phone: Comment on above: Expected: 11/26/2022, Expires: 3 Start: 11-26-2022 End: 01-26-2023 VITAMIN B5(PANTOTHENIC AID) BIOASSAY [facility] Work Phone: Comment on above: Expected: 11/26/2022, Expires: 3 Start: 11-25-2022 End: 01-25-2023 Cobalamin (Vitamin B12) [Mass/volume] in Serum or Plasma [facility] Work Phone: Comment on above: Expected: 11/25/2022, Expires: 3 Start: 11-25-2022 End: 01-25-2023 Renal function 2000 panel - Serum or Plasma [facility] Work Phone: Comment on above: Expected: 11/25/2022, Expires: 3 Start: 11-11-2022 End: 01-11-2023 Basic metabolic 2000 panel - Serum or Plasma [facility] Work Phone: Comment on above: Expected: 11/11/2022, Expires: 3 Start: 11-11-2022 End: 11-11-2022 Patient encounter procedure 11/11/2022 Office Visit Ophthalmology Deny Dumont MD [address] [place] [address] [facility] Start: 11-07-2022 Patient discharge [facility] Start: 11-06-2022 End: 11-06-2022 Removal of urinary catheter [facility] Start: 11-06-2022 Care planning and problem solving actions [facility] Start: 11-06-2022 [facility] Start: 11-05-2022 Referral to occupational therapist [facility] Start: 11-05-2022 Referral to service [facility] Start: 11-04-2022 Care planning and problem solving actions [facility] Start: 11-04-2022 End: 11-04-2022 Blood culture [facility] Start: 11-04-2022 Referral to car shunter [facility] Start: 11-04-2022 [facility] Start: 11-04-2022 [facility] Start: 11-03-2022 Care planning and problem solving actions [facility] Start: 11-03-2022 Oxygen therapy [facility] Start: 11-02-2022 Following clinical pathway protocol [facility] Start: 11-02-2022 Physiotherapy of chest [facility] Start: 11-02-2022 Consultation [facility] Start: 11-02-2022 Continuous pulse oximetry [facility] Start: 11-02-2022 Dual pressure spontaneous ventilation support [facility] Start: 11-02-2022 Inhalation therapy procedure [facility] Start: 11-01-2022 Admission procedure [facility] Start: 10-25-2022 End: 10-26-2023 Phenylephrine 0.25% Topical (Preparation H) 1 application Ointment Every 8 Hours ; OintmentDOSE = 1 application(s) Topical Every 8 Hours, PRN HemorrhoidsApply to Buttock Start: 25-Oct-2022 End: 25-Oct-2023 Ordered: 25-Oct-[address] [facility] Start: 10-24-2022 End: 10-25-2023 [facility] Start: 10-19-2022 Blood culture [facility] Start: 08-22-2022 [facility] Start: 07-18-2022 End: 09-17-2022 [place] [facility] SCREEN [facility] Work Phone: Comment on above: Expected: 07/18/2022, Expires: 2 Start: 07-18-2022 End: 09-17-2022 C reactive protein [Mass/volume] in Serum or Plasma [facility] Work Phone: Comment on above: Expected: 07/18/2022, Expires: 2 Start: 07-18-2022 End: 09-17-2022 Erythrocyte sedimentation rate [facility] Work Phone: Comment on above: Expected: 07/18/2022, Expires: 2 Start: 07-18-2022 End: 09-17-2022 Rheumatoid factor [Units/volume] in Serum or Plasma [facility] Work Phone: Comment on above: Expected: 07/18/2022, Expires: 2 Start: 06-28-2022 Influenza vaccination Influenza Vaccine (#1) [facility] Start: 05-29-2022 Influenza vaccination [facility] Start: 04-17-2022 End: 06-17-2022 25-hydroxyvitamin D3 [Mass/volume] in Serum or Plasma [facility] Work Phone: Comment on above: Expected: 04/17/2022, Expires: 2 Start: 04-17-2022 End: 06-17-2022 CBC W Auto Differential panel - Blood [facility] Work Phone: Comment on above: Expected: 04/17/2022, Expires: 2 Start: 04-17-2022 End: 06-17-2022 Comprehensive metabolic 2000 panel - Serum or Plasma [facility] Work Phone: Comment on above: Expected: 04/17/2022, Expires: 2 Start: 04-17-2022 End: 06-17-2022 Ferritin [Mass/volume] in Serum or Plasma [facility] Work Phone: Comment on above: Expected: 04/17/2022, Expires: 2 Start: 04-17-2022 End: 06-17-2022 Iron and Iron binding capacity panel - Serum or Plasma [facility] Work Phone: Comment on above: Expected: 04/17/2022, Expires: 2 Start: 04-17-2022 End: 06-17-2022 Lipid 1996 panel - Serum or Plasma [facility] Work Phone: Comment on above: Expected: 04/17/2022, Expires: 2 Start: 04-17-2022 End: 06-17-2022 Thyrotropin [Units/volume] in Serum or Plasma [facility] Work Phone: Comment on above: Expected: 04/17/2022, Expires: 2 Start: 03-26-2022 ANNUAL PCP TEAM CHRONIC DISEASE VISIT ANNUAL PCP TEAM CHRONIC DISEASE VISIT [facility] Start: 03-26-2022 BP CONTROLLED (<130/80) BP CONTROLLED (<130/80) [facility] Start: 03-03-2022 [facility] Work Phone: Start: 02-11-2022 End: 04-13-2022 Basic metabolic 2000 panel - Serum or Plasma BASIC METABOLIC PNL Lab Routine Essential hypertension, benign Expected: 02/11/2022, Expires: 04/13/2022 [facility] Work Phone: Comment on above: Expected: 02/11/2022, Expires: 2 Start: 02-11-2022 End: 04-13-2022 SCHEDULE LAB TESTING SCHEDULE LAB TESTING Lab Routine Expected: 02/11/2022, Expires: 04/13/2022 [facility] Work Phone: Comment on above: Expected: 02/11/2022, Expires: 2 Start: 09-23-2021 COVID-19 Vaccine (3 - Booster for Pfizer series) COVID-19 Vaccine (3 - Booster for Pfizer series) [facility] Start: 09-23-2021 COVID-19 VACCINE (3 - Pfizer series) COVID-19 VACCINE (3 - Pfizer series) [facility] Start: 08-28-2021 Mammography [facility] Start: 08-28-2021 Screening for malignant neoplasm of breast Mammogram Screening [facility] Start: 07-09-2021 COVID-19 VACCINE (2 - Pfizer 3-dose series) COVID-19 VACCINE (2 - Pfizer 3-dose series) [facility] Start: 07-09-2021 COVID-19 VACCINE (2 - Pfizer series) COVID-19 VACCINE (2 - Pfizer series) [facility] Start: 07-05-2020 PAP TESTING PAP TESTING [facility] Start: 07-05-2020 Screening for malignant neoplasm of cervix [facility] Start: 12-20-2015 FECAL OCCULT BLOOD FECAL OCCULT BLOOD [facility] Start: 12-20-2015 Screening for malignant neoplasm of colon Fecal Occult Blood [facility] Start: 2013 Measurement of occult blood in single stool specimen FIT [facility] Start: 2013 Screening for malignant neoplasm of colon CRC Screening [facility] Start: 2013 Shingles (RZV) Vaccine (1 of 2) Shingles (RZV) Vaccine (1 of 2) [facility] Start: 2013 SHINGRIX VACCINE (1 of 2) SHINGRIX VACCINE (1 of 2) [facility] Start: 2008 Cholesterol [Mass/volume] in Serum or Plasma [facility]olesterol [facility] Start: 2008 COLOGUARD (FIT-DNA) COLOGUARD (FIT-DNA) [facility] Start: [address] COLONOGRAPHY [facility] Start: 2008 Screening for malignant neoplasm of colon [facility] Start: 2008 SIGMOIDOSCOPY SIGMOIDOSCOPY [facility] Start: 2003 Screening for malignant neoplasm of breast Mammography [facility] Start: 1993 Zoledronic acid therapy ALPHA-1 ANTITRYPSIN DEFICIENCY SCREENING [facility] Start: 1984 Screening for malignant neoplasm of cervix Pap Smear [facility] Start: 1981 Hepatitis C screening Hepatitis C Antibody [facility] Start: 1981 HIV SCREENING HIV SCREENING [facility] Start: 1981 HIV screening HIV Screening [facility] Start: 1981 Tetanus + diphtheria + acellular pertussis vaccine (product) Tdap Booster [facility] Start: 1978 HIV screening HIV Test [facility] Start: 1963 Abdominal aortic aneurysm screening Pulmonary Function Testing [facility] Start: 1963 Screening for malignant neoplasm of colon Colonoscopy [facility] Anion gap in Serum o r Plasma [facility] Anion gap measurement [facility] Bacteria identified in Blood by Culture Blood Culture [facility] Bacteria identified in Blood by Culture Blood Culture [facility] Bacteria identified in Sputum by Respiratory culture [facility] BUN/Creatinine ratio [facility] BUN/Creatinine ratio [facility] Calcium [Mass/volume ] in Serum or Plasma [facility] Calcium [Mass/volume ] in Serum or Plasma [facility] Carbon dioxide, tota l [Moles/volume] in Central venous blood [facility] Carbon dioxide, tota l [Moles/volume] in Serum or Plasma [facility] Chloride [Moles/volu me] in Serum or Plasma [facility] Clostridioides diffi cile DNA [Presence] in Unspecified specimen by KANDY with probe detection [facility] Creatinine [Mass/vol ume] in Serum or Plasma [facility] Creatinine [Moles/volume] in Serum or Plasma [facility] End: 09-14-2025 CT Abdomen and Pelvis W contrast IV CT ABD/PEL W IVCON Radiology Routine Alcoholic hepatitis without ascites Acute pancreatitis, unspecified complication status, unspecified pancreatitis type Upper abdominal pain Nausea Elevated lipase Generalized abdominal tenderness without rebound tenderness 1 Occurrences starting 08/15/2024 until 09/14/2025 [facility] Work Phone: Comment on above: 1 Occurrences starting 08/15/2024 until 09/14/2025 CT Abdomen and Pelvi s W contrast IV CT ABD/PEL W IVCON Radiology Routine Alcoholic hepatitis without ascites Acute pancreatitis, unspecified complication status, unspecified pancreatitis type Upper abdominal pain Nausea Elevated lipase Generalized abdominal tenderness without rebound tenderness 08/23/2024 9:53 AM EST [facility] Work Phone: CT Chest [facility] CT Chest [facility] End: 06-03-2025 DBT Breast - bilateral screening SIMI SCREENING W CYNTHIA Radiology Routine Encounter for screening mammogram for breast cancer 1 Occurrences starting 05/04/2024 until 06/03/2025 [facility] Work Phone: Comment on above: 1 Occurrences starting 05/04/2024 until 06/03/2025 End: 11-02-2025 EGD - THERAPEUTIC, EUS, OR TUBE INTERVENTIONS EGD - THERAPEUTIC, EUS, OR TUBE INTERVENTIONS Endoscopy Routine Chronic recurrent pancreatitis (HCC) 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 chronic pancreatitis (HCC) Chronic RUQ pain 1 Occurrences starting 11/02/2024 until 11/02/2025 [facility] Work Phone: Comment on above: 1 Occurrences starting 11/02/2024 until 11/02/2025 Elastase.pancreatic [Presence] in Stool [facility] End: 11-27-2023 EMG(NEURO/NI) EMG(NEURO/NI) EMG Routine Numbness and tingling of both lower extremities Neuropathy Numbness and tingling of both feet 1 Occurrences starting 11/26/2022 until 11/27/2023 [facility] Work Phone: Comment on above: 1 Occurrences starting 11/26/2022 until 11/27/2023 End: 12-01-2025 ERCP ERCP Endoscopy Routine Other chronic pancreatitis (HCC) 1 Occurrences starting 12/01/2024 until 12/01/2025 [facility] Work Phone: Comment on above: 1 Occurrences starting 12/01/2024 until 12/01/2025 End: 04-04-2026 ERCP ERCP Endoscopy Routine Chronic recurrent pancreatitis (HCC) 1 Occurrences starting 04/04/2025 until 04/04/2026 [facility] Work Phone: Comment on above: 1 Occurrences starting 04/04/2025 until 04/04/2026 Erythrocyte mean corpuscular volume determination [facility] Folate [Moles/volume ] in Serum or Plasma [facility] Giardia lamblia Ag [Presence] in Stool by Immunoassay [facility] Giardia lamblia anti gen assay [facility] Glucose [Mass/volume ] in Serum or Plasma [facility] Glucose [Mass/volume ] in Serum or Plasma [facility] Hematocrit [Volume Fraction] of Blood [facility] Hemoglobin [Mass/vol ume] in Blood [facility] Legionella pneumophi la Ag [Presence] in Urine [facility] Leukocytes [#/volume ] in Blood [facility] End: 07-02-2024 SIMI SCREENING SIMI SCREENING Radiology Routine Encounter for screening mammogram for breast cancer 1 Occurrences starting 06/03/2023 until 07/02/2024 [facility] Work Phone: Comment on above: 1 Occurrences starting 06/03/2023 until 07/02/2024 Mean corpuscular hemoglobin concentration determination [facility] Mean corpuscular hemoglobin determination [facility] Measurement of renal function [facility] Measurement of renal function [facility] Microorganism identi fied in Unspecified specimen by Culture [facility] Microscopic observat ion [Identifier] in Unspecified specimen by Gram stain [facility] Neutrophil count [facility] Neutrophil percent differential count [facility] Nucleic acid assay [facility] Ova OR parasites identification [facility] Ova OR parasites identification [facility] Patient Education [facility] Work Phone: Patient referral [facility] Work Phone: Platelets [#/volume] in Blood [facility] Potassium [Moles/vol ume] in Serum or Plasma [facility] Potassium measurement [facility] Protein measurement [facility] End: 12-25-2023 Radex spine lumbosacral 2/3 views XR LUMBAR GENERAL 3V AP/LAT/L5-S1 Radiology Routine Numbness and tingling of both lower extremities 1 Occurrences starting 11/25/2022 until 12/25/2023 [facility] Work Phone: Comment on above: 1 Occurrences starting 11/25/2022 until 12/25/2023 Radex spine lumbosac ral 2/3 views XR LUMBAR GENERAL 3V AP/LAT/L5-S1 Radiology Routine Numbness and tingling of both lower extremities 11/25/2022 11:18 AM EST [facility] Work Phone: Red blood cell count [facility] Red cell distributio n width determination [facility] End: 07-25-2023 Screening mammography bi 2-view breast inc cad SIMI SCREENING Radiology Routine Encounter for screening mammogram for breast cancer 1 Occurrences starting 06/25/2022 until 07/25/2023 [facility] Work Phone: Comment on above: 1 Occurrences starting 06/25/2022 until 07/25/2023 Serum chloride measurement [facility] Sodium [Moles/volume ] in Serum or Plasma [facility] Sodium measurement [facility] Streptococcus pneumo niae antigen assay [facility] Triacylglycerol lipa se measurement [facility] UA DIP, URINE (POC) UA DIP, URIN E (POC) Lab Routine Urinary incontinence, unspecified type Urinary frequency Ordered: 08/10/2024 [facility] Comment on above: Ordered: 08/10/2024 Urea nitrogen [Mass/volume] in Serum or Plasma [facility] Urea nitrogen [Mass/volume] in Serum or Plasma [facility] Urine culture [facility] End: 09-09-2025 US Abdomen RUQ US ABD RIGHT UPPER QUADRANT Radiology Routine Upper abdominal pain Nausea 1 Occurrences starting 08/10/2024 until 09/09/2025 [facility] Comment on above: 1 Occurrences starting 08/10/2024 until 09/09/2025 End: 05-17-2023 Us abdominal real time w/image limited US ABD RT UPPER QUADRANT Radiology Routine 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 chronic pancreatitis (HCC) Alcoholic hepatitis without ascites 1 Occurrences starting 04/17/2022 until 05/17/2023 [facility] Work Phone: Comment on above: 1 Occurrences starting 04/17/2022 until 05/17/2023 Us abdominal real ti me w/image limited US ABD RT UPPER QUADRANT Radiology Routine 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 chronic pancreatitis (HCC) Alcoholic hepatitis without ascites 05/02/2022 9:37 AM EDT [facility] Work Phone: End: 04-25-2026 US Carotid arteries - bilateral US CAROTID ARTERIES [facility] Vascular Lab Routine Stenosis of left carotid artery 1 Occurrences starting 04/25/2025 until 04/25/2026 [facility] Comment on above: 1 Occurrences starting 04/25/2025 until 04/25/2026 End: 04-25-2026 US Upper extremity artery US ARM ARTERIAL UNL [facility] Vascular Lab Routine Subclavian arterial stenosis 1 Occurrences starting 04/25/2025 until 04/25/2026 [facility] Work Phone: Comment on above: 1 Occurrences starting 04/25/2025 until 04/25/2026 XR Abdomen Single view [facility] End: 02-23-2025 XR Chest PA and Lateral XR CHEST 2V FRONTAL/LAT Radiology Routine Pneumonia due to infectious organism, unspecified laterality, unspecified part of lung Acute right ankle pain 1 Occurrences starting 01/25/2024 until 02/23/2025 [facility] Work Phone: Comment on above: 1 Occurrences starting 01/25/2024 until 02/23/2025 XR Chest PA and Lateral XR CHEST 2V FRONTAL/LAT Radiology Routine Pneumonia due to infectious organism, unspecified laterality, unspecified part of lung Acute right ankle pain 01/25/2024 2:13 PM EDT [facility] End: 09-09-2025 XR Chest PA and Lateral XR CHEST 2V FRONTAL/LAT Radiology Routine Shortness of breath Chronic obstructive pulmonary disease with acute exacerbation (HCC) Tobacco use disorder Pulmonary emphysema, unspecified emphysema type (HCC) 1 Occurrences starting 08/10/2024 until 09/09/2025 [facility] Comment on above: 1 Occurrences starting 08/10/2024 until 09/09/2025 XR Chest PA and Lateral XR CHEST 2V FRONTAL/LAT Radiology Routine Shortness of breath Chronic obstructive pulmonary disease with acute exacerbation (HCC) Tobacco use disorder Pulmonary emphysema, unspecified emphysema type (HCC) 08/10/2024 5:47 PM EST [facility] End: 01-18-2026 XR Chest PA and Lateral XR CHEST 2V FRONTAL/LAT Radiology Routine Chronic recurrent pancreatitis (HCC) Chronic obstructive pulmonary disease, unspecified COPD type (HCC) Hospital discharge follow-up 1 Occurrences starting 12/19/2024 until 01/18/2026 [facility] Work Phone: Comment on above: 1 Occurrences starting 12/19/2024 until 01/18/2026 XR Chest PA and Lateral XR CHEST 2V FRONTAL/LAT Radiology Routine Chronic recurrent pancreatitis (HCC) Chronic obstructive pulmonary disease, unspecified COPD type (HCC) Hospital discharge follow-up 12/19/2024 4:01 PM EDT [facility] Immunizations Immunization Date Immunization Notes Care Provider Sarah tapia 08-05-2024 influenza, seasonal, injectable Misbah Elkins MD Work Phone: [facility] 08-05-2024 influenza virus vacc ine, unspecified formulation Herman Nevarez RN [facility] 07-18-2022 influenza, injectabl e, quadrivalent, contains preservative Soila Easton LEI MAKER.BOX TOE MAKER Work Phone: [facility] 07-18-2022 influenza, injectabl e, quadrivalent, preservative free POLYSTYRENE MOLDING MACHINE TENDER-C SOILA OLDER Work Phone: [facility] 07-18-2022 influenza, seasonal, injectable POLYSTYRENE MOLDING MACHINE TENDER-C SOILA OLDER Work Phone: [facility] 07-18-2022 influenza virus vacc ine, unspecified formulation Soila Easton LEI MAKER.BOX TOE MAKER Work Phone: [facility] 06-18-2021 Covid (Pfizer) POLYSTYRENE MOLDING MACHINE TENDER-C SOILA SCHNEIDER R Work Phone: [facility] 08-12-2020 tetanus toxoid, redu enid diphtheria toxoid, and acellular pertussis vaccine, adsorbed Víctor Mcpherson LEI MAKER.TIFFANIE COSTA Work Phone: [facility] Work Phone: 05-24-2020 influenza, injectabl e, quadrivalent, contains preservative Víctor Mcpherson LEI MAKER.TIFFAINE COSTA Work Phone: [facility] 07-26-2019 influenza, injectabl e, quadrivalent, contains preservative Víctor Mcpherson LEI MAKER.TIFFANIE COSTA Work Phone: [facility] 08-31-2018 pneumococcal polysaccharide vaccine, 23 valent Víctor Mcpherson LEI MAKER.TIFFANIE COSTA Work Phone: [facility] 08-17-2018 influenza, seasonal, injectable Víctor Mcpherson LEI MAKER.TIFFANIE COSTA Work Phone: [facility] 08-11-2018 Influenza, injectabl e, Madin [place] Canine Kidney, preservative free, quadrivalent Víctor Blarose LEI MAKER.[facility] Work Phone: [facility] Work Phone: 07-13-2018 influenza, injectabl e, quadrivalent, preservative free POLYSTYRENE MOLDING MACHINE TENDER-C SOILA OLDER Work Phone: [facility] 07-13-2018 influenza, seasonal, injectable POLYSTYRENE MOLDING MACHINE TENDER-C Theron Teague POLYSTYRENE MOLDING MACHINE TENDER Work Phone: [facility] 07-13-2018 influenza, seasonal, injectable, preservative free Víctor Blaz LEI MAKER.[facility] Work Phone: [facility] Work Phone: 08-27-2017 pneumococcal conjuga te vaccine, 13 valent Víctor Mcpherson LEI MAKER.[facility] Work Phone: [facility] 07-13-2017 influenza, injectabl e, quadrivalent, contains preservative Víctor Blaz LEI MAKER.[facility] Work Phone: [facility] 06-24-2016 influenza, injectabl e, quadrivalent, contains preservative Víctor Blaz LEI MAKER.[facility] Work Phone: [facility] 10-28-2013 Influenza virus vaccine POLYSTYRENE MOLDING MACHINE TENDER-C Theron Teague POLYSTYRENE MOLDING MACHINE TENDER Work Phone: [facility] 10-28-2013 influenza, seasonal, injectable, preservative free Víctor Blaz LEI MAKER.[facility] Work Phone: [facility] Work Phone: 07-17-2012 influenza virus vacc ine, unspecified formulation Víctor Blaz LEI MAKER.[facility] Work Phone: [facility] 07-19-2011 influenza virus vacc ine, unspecified formulation Víctor Blaz LEI MAKER.[facility] Work Phone: [facility] Work Phone: 07-30-2010 influenza virus vacc ine, unspecified formulation Víctor Blaz LEI MAKER.[facility] Work Phone: [facility] 10-05-2009 pneumococcal polysaccharide vaccine, 23 valent Víctor Blarose HEART.[facility], [facility] Work Phone: [facility] Work Phone: 10-05-2009 Pneumococcal Vaccine POLYSTYRENE MOLDING MACHINE TENDER-C Onesimo Teague POLYSTYRENE MOLDING MACHINE TENDER Work Phone: [facility] Work Phone: 10-05-2009 pneumococcal vaccine , unspecified formulation POLYSTYRENE MOLDING MACHINE TENDER-C SOILA OLDER Work Phone: [facility] 08-14-2009 novel influenza-H1N1 -09, all formulations Víctor Mcpherson APRN.[facility], [facility] Work Phone: [facility] 07-06-2009 influenza virus vacc ine, unspecified formulation Víctor Mcpherson APRN.[facility] Work Phone: [facility] Work Phone: 03-28-2007 pneumococcal polysaccharide vaccine, 23 valent Víctor Mcpherson APRN.[facility], [facility] Work Phone: [facility] Payers Date Payer Category Payer Self-pay 2015 Unknown [id number] 2015 Unknown [id number] 2006 Medicaid [facility] [employer] [id number] 2006-Present [phone] [address] [place] [address] Medicaid [id number]. [id number] 2006 Medicaid [id number] [id number]. [id number] 1963 Unknown [id number] 2.16.840.1.102689.3.579.2.732 1963 Unknown [id number] 2.16.840.1.684600.3.579.2.732 1963 Unknown [id number] 2.16.840.1.017087.3.579.2.732 1963 Unknown [id number] 2.16.840.1.516600.3.579.2.732 1963 Unknown [id number] 2.16.840.1.748728.3.579.2.732 1963 Unknown [id number] 2.16.840.1.813237.3.579.2.73 1963 Unknown [id number] 2.16.840.1.554455.3.579.2.732 1963 Unknown [id number] 2.16.840.1.356721.3.579.2.73 1963 Unknown [id number] 2.16.840.1.329596.3.579.2.73 1963 Unknown [id number] 2.16840.1.447701.3.579.2.356 1963 Unknown [id number] 2.16.840.1.929479.3.579.2.356 1963 Unknown [id number] 2.16.840.1.186233.3.579.2.356 1963 Unknown [id number] 2.16.840.1.384032.3.579.2.356 1963 Unknown [id number] 2.16.840.1.460703.3.579.2.356 1963 Unknown [id number] 2.16.840.1.069273.3.579.2.356 1963 Unknown [id number] 2.16.840.1.830132.3.579.2.356 Unknown Unknown [id number] 2.16.840.1.422615.3.579.2.462 Unknown [id number] 2.16.840.1.235431.3.579.2.462 Unknown [id number] 2.16.840.1.598516.3.579.2.462 Unknown [id number] 2.16.840.1.924264.3.579.2.462 Unknown [id number] 2.16.840.1.453245.3.579.2.462 Unknown [id number] 2.16.840.1.848902.3.579.2.462 Unknown [id number] 2.16840.1.280512.3.579.2.462 Unknown [id number] 2.840.1.001026.3.579.2.462 Unknown [id number] 2.840.1.112134.3.579.2.462 Unknown [id number] 2.840.1.594937.3.579.2.462 Unknown [id number] 2.840.1.773004.3.579.2.462 Unknown [id number] 2.840.1.796216.3.579.2.462 Unknown [id number] 2.840.1.602572.3.579.2.462 Unknown [id number] 2.840.1.471734.3.579.2.462 Unknown [id number] 2.840.1.559688.3.579.2.462 Unknown [id number] 2.840.1.819835.3.579.2.462 Unknown [id number] 2.840.1.171689.3.579.2.462 Unknown [id number] 2.840.1.795579.3.579.2.462 Unknown [id number] 2.840.1.754771.3.579.2.462 Unknown [id number] 2.16840.1.568855.3.579.2.462 Unknown [id number] 2.840.1.230735.3.579.2.462 Unknown [id number] 2.16.840.1.593449.3.579.2.462 Unknown [id number] 2.16.840.1.166703.3.579.2.462 Unknown [id number] 2.16.840.1.491829.3.579.2.462 Unknown [id number] 2.16.840.1.330849.3.579.2.462 Unknown [id number] 2.16.840.1.167493.3.579.2.462 Unknown [id number] 2.16.840.1.840328.3.579.2.462 Unknown [id number] 2.16.840.1.374981.3.579.2.462 Unknown [id number] 2.16.840.1.502737.3.579.2.462 Unknown [id number] 2.16.840.1.662488.3.579.2.462 Unknown [id number] 2.16.840.1.044633.3.579.2.462 Unknown [id number] 2.16.840.1.915947.3.579.2.462 Unknown [id number] 2.16.840.1.546260.3.579.2.462 Unknown [id number] 2.16.840.1.351084.3.579.2.462 Unknown [id number] 2.16.840.1.976420.3.579.2.462 Unknown [id number] 2.16.840.1.785179.3.579.2.462 Unknown [id number] 2.16.840.1.491065.3.579.2.462 Unknown [id number] 2.16.840.1.934727.3.579.2.462 Unknown [id number] 2.16.840.1.066020.3.579.2.462 Unknown [id number] 2.16.840.1.889801.3.579.2.462 Unknown [id number] 2.16.840.1.784501.3.579.2.462 Unknown [id number] 2.16.840.1.071866.3.579.2.462 Unknown [id number] 2.16.840.1.243837.3.579.2.462 Unknown [id number] 2.16.840.1.900807.3.579.2.462 Unknown [id number] 2.16.840.1.153296.3.579.2.462 Unknown [id number] 2.16.840.1.421988.3.579.2.462 Social History Date Type Detail Facility Start: 10-19-1992 End: 12-01-2024 Tobacco smoking status ILIS Smokes tobacco daily [facility] Start: 10-19-1992 End: 10-19-2022 History of tobacco use Cigarette Smoker [facility] Start: 07-05-2019 End: 03-30-2023 Cigarettes smoked current (pack per day) - Reported 0.5 [facility] Start: 07-05-2019 End: 12-01-2024 Tobacco use and exposure Smokeless tobacco non-user [facility] Start: 07-18-2021 End: 04-25-2025 Alcohol intake Ex-drinker (finding) [facility] Start: 03-26-2021 History SDOH Alcohol Comment Alcoholic - November 2020 - last drink [facility] Start: 1965 Sex Assigned At Not on file [facility] Start: 03-03-2022 End: 01-19-2024 Tobacco smoking status ILIS Unknown if ever smoked [facility] Start: 01-22-2021 Heavy [facility] Start: 01-22-2021 Marijuana [facility] Start: 02-01-2019 Alone [facility] Start: 01-22-2021 Cigarettes [facility] Start: 1965 Sex Assigned At Female W [facility] Start: 03-11-2022 End: 05-27-2022 Exposure to SARS-CoV-2 (event) Not sure [facility] Start: 10-21-2022 Tobacco use and exposure User of smokeless tobacco [facility] Start: 11-11-2022 End: 04-16-2025 Tobacco smoking status NHIS Ex-smoker [facility] Work Phone: Start: 10-19-1992 End: 10-19-2022 History of tobacco use Current smoker [facility] Work Phone: Start: 03-30-2023 End: 04-15-2023 Tobacco use panel [facility] Adult Depression Screening Assessment 4 [facility] Start: 12-04-2024 End: 12-06-2024 Tobacco smoking status NHIS Current Heavy tobacco smoker [facility] Start: 12-04-2024 End: 01-01-2025 Sex Female (finding) [facility] Start: 12-24-2024 End: 02-26-2025 Tobacco smoking status ILIS Current some day smoker [facility] Has the [employer], [employer], oil, or water company threatened to shut off services in your home in past 12Mo No [facility] (I/We) worried tara er (my/our) food would run out before (I/we) got money to buy more. Never true [facility] Medical Equipment Procedure Code Equipment Code Equipment Origin al Text Equipment Identifier Dates Total cholecystectomy with exploration of common bile duct [id number] FDA Start: 06-14-2021 Stent Zimmon 7fr Duodenal Pigtail Curve Purple Polyethylene 11cm Pancreatic - [id number] Start: 03-10-2025 Goals Date Patient Goal Desired Activity /State Functional Status Date Assessment Result Facility 04-19-2025 Functional status Ambulates;Up ad denise [facility] Work Phone: 04-19-2025 Functional status None [facility] Work Phone: 03-23-2025 Are you deaf, or do you have serious difficulty hearing No 03/23/2025 5:10 PM EDT Kerri Aaron RN [facility] 03-23-2025 Are you blind, or do you have serious difficulty seeing, even when wearing glasses No 03/23/2025 5:10 PM EDKerri Sousa RN No [facility] 03-23-2025 Do you have serious difficulty walking or climbing stairs No 03/23/2025 5:10 PM Kerri Hardin RN No [facility] 03-23-2025 Do you have difficul ty dressing or bathing No 03/23/2025 5:10 PM Kerri Hardin RN No [facility] 03-23-2025 Because of a physica l, mental, or emotional condition, do you have difficulty doing errands alone such as visiting a physician's office or shopping No 03/23/2025 5:10 PM Kerri Hardin RN No [facility] 03-15-2025 Functional status Bedrest [facility] Work Phone: 12-12-2024 Functional status Ambulates;Bath room Privilege [facility] Work Phone: 12-08-2024 Functional status Bedrest [facility] Work Phone: 01-05-2024 Functional status Ambulates [facility] Work Phone: 11-07-2022 Functional status Ambulates [facility] Work Phone: 02-02-2015 Are you deaf, or do you have serious difficulty hearing No 02/02/2015 9:44 AM Alondra Mackenzie RN No [facility] 02-02-2015 Are you blind, or do you have serious difficulty seeing, even when wearing glasses No 02/02/2015 9:44 AM Alondra Mackenzie RN No [facility] 02-02-2015 Do you have serious difficulty walking or climbing stairs No 02/02/2015 9:44 AM Alondra Mackenzie RN No [facility] 02-02-2015 Do you have difficul ty dressing or bathing No 02/02/2015 9:44 AM Alondra Mackenzie RN No [facility] 02-02-2015 Because of a physica l, mental, or emotional condition, do you have difficulty doing errands alone such as visiting a physician's office or shopping No 02/02/2015 9:44 AM Alondra Mackenzie RN No [facility] Functional observable [facility] Mental Status Date Assessment Result Facility 04-19-2025 Cognitive function Voice/Name [facility] Work Phone: 03-23-2025 Because of a physica l, mental, or emotional condition, do you have serious difficulty concentrating, remembering, or making decisions No 03/23/2025 5:10 PM EDT Kerri Aaron RN [facility] 03-15-2025 Cognitive function Unable to Comprehend W [facility] Work Phone: 03-15-2025 Cognitive function Voice/Name [facility] Work Phone: 12-12-2024 Cognitive function Voice/Name [facility] Work Phone: 12-11-2024 Cognitive function Appropriate;Cooperativ e [facility] Work Phone: 12-08-2024 Cognitive function Voice/Name [facility] Work Phone: 01-19-2024 Cognitive function Level Of Cons ciousness Awake;Alert;Appropriate [facility] Work Phone: 01-05-2024 Cognitive function Voice/Name [facility] Work Phone: 06-02-2023 Cognitive function Level Of Cons ciousness Awake;Alert;Appropriate;Fol lows Commands [facility] Work Phone: 11-07-2022 Cognitive function Voice/Name [facility] Work Phone: 10-24-2022 Cognitive functi ons [id number] [facility] 02-02-2015 Because of a physica l, mental, or emotional condition, do you have serious difficulty concentrating, remembering, or making decisions No 02/02/2015 9:44 AM EDT Alondra Otto RN No [facility] Clinical Notes 01-10-2021 to 04-27-2025 Telephone Encounter - Caroline Miller RN - 04/26/2025 8:23 AM EDTTelephone Encounter - Caroline Miller RN - 04/26/2025 8:23 AM EDTTelephone Encounter - Misbah Elkins MD - 04/25/2025 7:03 PM EDT Note Date & Type Note Facility 04-27-2025 Radiology Diagnostic study note [facility] 04-26-2025 Telephone encounter Note Called pt and she said she already picked up the Tramadol. [facility] 04-26-2025 Miscellaneous Notes Called pt and she said she already picked up the Tramadol. I sent tramadol [facility] Misbah Cisneros MD Pt just in and saw Dr. Elkins and checked out at 454 pm. Pt calling in asking about her pain med refill and see if it has been sent to the pharmacy yet. She states she doesn't want to get all the way home and have to come back out in the heat. (can hear a TV in the background). It appears note is not completed so pain med has not been sent in yet. Pt states she would rather have the Tramadol instead of the Oxycodone sent in. She is asking for a call back when the med has been sent in as her daughter is out and about and could pick it up for her. Explained that it is after hours and this might not get completed until tomorrow sometime. Pt verbalizes understanding but is hoping for the med tonight as she does not want to go back to the ER. documented in this encounter [facility] 04-25-2025 Note HNO ID: [id number] Author: MISBAH ELKINS MD Service: ? Author Type: Physician Type: Progress Notes Filed: 04/25/2025 22:28 Note Text: Reason for Visit Follow up HPI Gracie Banuelos is a 59-year-old female with a history of chronic pancreatitis, COPD, and anxiety, presenting for follow-up after a recent hospitalization for acute pancreatitis. Gracie was admitted to the hospital on 04/16/2025 and discharged on 04/19/2025, at [facility], following an episode of acute pancreatitis. She reports that the pain began on 04/14/2025, starting in the middle of the night and gradually worsening throughout the day, prompting her to seek emergency care. The pain was exacerbated by sitting up and alleviated by lying down. She describes the pain as severe, located in the right upper quadrant, and radiating to her back. She notes that this pain was more intense than her usual chronic intermittent pain, which she has experienced since her recent pancreatic duct stent placement and removal of multiple stones at [facility] in [place] on 03/10/2025. During her recent hospitalization, a CT scan of the abdomen revealed acute and chronic pancreatitis in the pancreatic head and uncinate process, with corresponding lab evidence of elevated lipase (239 U/L) and leukocytosis (WBC count: 18,000/ microL). She was also found to have very high blood pressures of 197/[address] scan showed chronic pancreatitis changes with numerous calcifications and superimposed acute pancreatitis in the head and uncinate process, with pancreatic swelling and peripancreatic fat stranding. She was initially kept NPO and later advanced to a full liquid diet, which she tolerated well. She was discharged on clonidine 0.2 mg twice daily and labetalol. Gracie has a history of chronic pancreatitis and pancreatic stent placement at [facility] on 03/10/2025. She reports ongoing pain since the stent placement, which she describes as worse than before. She is scheduled to see Dr. Segura in gastroenterology tomorrow for further evaluation. Gracie also has a history of COPD and is on 5 liters of nasal cannula oxygen. She reports that she was intubated and placed on a ventilator during a previous in [place] hospitalization, which she attributes to fluid overload. She expresses fear of being intubated again and reports anxiety related to her health and hospitalizations. She is currently taking ziprasidone and mirtazapine for anxiety and depression but reports that these medications are not fully effective in managing her symptoms. She denies current use of clonidine. Gracie has a history of alcohol and tobacco abuse but reports that she quit smoking 19 days ago and stopped drinking alcohol in 2020. She also has a history of hypertension, for which she is taking amlodipine and lisinopril, and hyperlipidemia, for which she is taking simvastatin. She has a history of GERD and is taking pantoprazole. She also has osteoarthritis with chronic back pain and is taking meloxicam and tramadol as needed for pain. She reports that she was prescribed Toradol and morphine for pain during her recent hospitalization and is currently taking oxycodone 5 mg and tramadol for pain management. She is also taking an sdws-aqq-pjwrlst medication called Ease to manage constipation associated with opioid use. Gracie expresses concern about her blood pressure readings, which she reports are high in one arm and low in the other. She was told by her doctors that she might have a blood clot and is requesting a referral to a salad counter attendant for further evaluation. She also reports dryness in her nose, which she attributes to her oxygen use, and requests a recommendation for a moisturizing agent. Social History Tobacco Use Smoking status: Every Day Current packs/day: 0.00 Average packs/day: 0.5 packs/day for 30.0 years (15.0 ttl pk-yrs) Types: Cigarettes Start date: 10/19/1992 Last attempt to quit: 10/19/2022 Years since quittin.5 Smokeless tobacco: Never Vaping Use Vaping status: Never Used Substance Use Topics Alcohol use: Not Currently Comment: Alcoholic - November 2020 - last drink Drug use: Yes Types: Marijuana Comment: rarely- last time used was Oct 2019 Past medical history, appointments, medications, allergies reviewed. Pertinent Lab/Diagnostic Studies are reviewed and discussed today Current Outpatient Medications: albuterol HFA (VENTOLIN HFA) 90 mcg/actuation inhaler hydrOXYzine pamoate (VISTARIL) 25 mg capsule lisinopril (ZESTRIL) 10 mg tablet simvastatin (ZOCOR) [address] (PROTONIX) 40 mg tablet metoprolol tartrate, short acting, (LOPRESSOR) 25 mg tablet amLODIPine (NORVASC) 5 mg tablet hydrOXYzine HCl (ATARAX) 25 mg tablet Cholecalciferol, Vitamin D3, 50 mcg (2,000 unit) cap ziprasidone (GEODON) 40 mg capsule Blood Pressure Monitor cyclobenzaprine (FLEXERIL) 10 mg tablet mirtazapine (REMERON) 45 mg (more content not included)... [facility] 04-25-2025 History of Presen t illness Narrative Reason for Visit Follow up HPI Gracie Banuelos is a 59-year-old female with a history of chronic pancreatitis, COPD, and anxiety, presenting for follow-up after a recent hospitalization for acute pancreatitis. Gracie was admitted to the hospital on 04/16/2025 and discharged on 04/19/2025, at [facility], following an episode of acute pancreatitis. She reports that the pain began on 04/14/2025, starting in the middle of the night and gradually worsening throughout the day, prompting her to seek emergency care. The pain was exacerbated by sitting up and alleviated by lying down. She describes the pain as severe, located in the right upper quadrant, and radiating to her back. She notes that this pain was more intense than her usual chronic intermittent pain, which she has experienced since her recent pancreatic duct stent placement and removal of multiple stones at [facility] in [place] on 03/10/2025. During her recent hospitalization, a CT scan of the abdomen revealed acute and chronic pancreatitis in the pancreatic head and uncinate process, with corresponding lab evidence of elevated lipase (239 U/L) and leukocytosis (WBC count: 18,000/ microL). She was also found to have very high blood pressures of 197/[address] scan showed chronic pancreatitis changes with numerous calcifications and superimposed acute pancreatitis in the head and uncinate process, with pancreatic swelling and peripancreatic fat stranding. She was initially kept NPO and later advanced to a full liquid diet, which she tolerated well. She was discharged on clonidine 0.2 mg twice daily and labetalol. Gracie has a history of chronic pancreatitis and pancreatic stent placement at [facility] on 03/10/2025. She reports ongoing pain since the stent placement, which she describes as worse than before. She is scheduled to see Dr. Segura in gastroenterology tomorrow for further evaluation. Gracie also has a history of COPD and is on 5 liters of nasal cannula oxygen. She reports that she was intubated and placed on a ventilator during a previous in [facility] hospitalization, which she attributes to fluid overload. She expresses fear of being intubated again and reports anxiety related to her health and hospitalizations. She is currently taking ziprasidone and mirtazapine for anxiety and depression but reports that these medications are not fully effective in managing her symptoms. She denies current use of clonidine. Gracie has a history of alcohol and tobacco abuse but reports that she quit smoking 19 days ago and stopped drinking alcohol in 2020. She also has a history of hypertension, for which she is taking amlodipine and lisinopril, and hyperlipidemia, for which she is taking simvastatin. She has a history of GERD and is taking pantoprazole. She also has osteoarthritis with chronic back pain and is taking meloxicam and tramadol as needed for pain. She reports that she was prescribed Toradol and morphine for pain during her recent hospitalization and is currently taking oxycodone 5 mg and tramadol for pain management. She is also taking an [id number] medication called Ease to manage constipation associated with opioid use. Gracie expresses concern about her blood pressure readings, which she reports are high in one arm and low in the other. She was told by her doctors that she might have a blood clot and is requesting a referral to a salad counter attendant for further evaluation. She also reports dryness in her nose, which she attributes to her oxygen use, and requests a recommendation for a moisturizing agent. Social History Tobacco Use Smoking status: Every Day Current packs/day: 0.00 Average packs/day: 0.5 packs/day for 30.0 years (15.0 ttl pk-yrs) Types: Cigarettes Start date: 10/19/1992 Last attempt to quit: 10/19/2022 Years since quittin.5 Smokeless tobacco: Never Vaping Use Vaping status: Never Used Substance Use Topics Alcohol use: Not Currently Comment: Alcoholic - November 2020 - last drink Drug use: Yes Types: Marijuana Comment: rarely- last time used was Oct 2019 Past medical history, appointments, medications, allergies reviewed. Pertinent Lab/Diagnostic Studies are reviewed and discussed today Current Outpatient Medications: albuterol HFA (VENTOLIN HFA) 90 mcg/actuation inhaler hydrOXYzine pamoate (VISTARIL) 25 mg capsule lisinopril (ZESTRIL) 10 mg tablet simvastatin (ZOCOR) [address] (PROTONIX) 40 mg tablet metoprolol tartrate, short acting, (LOPRESSOR) 25 mg tablet amLODIPine (NORVASC) 5 mg tablet hydrOXYzine HCl (ATARAX) 25 mg tablet Cholecalciferol, Vitamin D3, 50 mcg (2,000 unit) cap ziprasidone (GEODON) 40 mg capsule Blood Pressure Monitor cyclobenzaprine (FLEXERIL) 10 mg tablet mirtazapine (REMERON) 45 mg tablet multivitamin tablet ARIPiprazole (ABILIFY) 5 mg tablet OXYGEN, HOME THERAPY, COMPOUNDED PRESCRIPTION COMPOUNDED PRESCRIPTION oxyCODONE IR (ROXICODONE) 5 mg immediate release tablet traMADol (ULTRAM) 50 mg tablet gabapentin (NEURONTIN) 300 mg capsule albuterol (PROVENTIL) 2.5 mg /3 mL (0.083 %) nebulizer solution ondansetron orally disintegrating (ZOFRAN ODT) 4 mg disintegrating tablet MUCINEX D MAXIMUM STRENGTH 120-1,200 mg tab ER 12 hr ferrous sulfate (SLOW FE) 140 mg (45 mg iron) TbER Health Maintenance HIV Screening Shingrix Vaccine(1 of 2) Cervical Cancer Screening Mammogram Screening RSV Vaccine(1 - Risk 60-74 years 1-dose series) Pneumococcal Vaccine: 50+(3 of 3 - PCV20 or PCV21) Colorectal Cancer Screening@ Review Of Systems Ears/Nose/Mouth/Throat: (+) nasal dryness Gastrointestinal: (+) right upper quadrant abdominal pain radiating to back, (+) constipation Musculoskeletal: (+) back pain Psychiatric: (+) anxiety, (+) insomnia, (+) fear of Physical Exam BP 116/84 Pulse 104 Resp 18 Wt 55.8 kg (123 lb) LMP 05/29/2010 SpO2 92% BMI 20.47 kg/m GENERAL: NAD, alert and oriented. SKIN: Unremarkable, no rash or skin lesions. HEAD: Normocephalic. EYES: PERRLA, EOMI, conjunctiva clear. EARS: External ears normal, canals clear, TM's normal. NOSE/SINUSES: Nares normal. Septum midline. LUNGS: Clear to auscultation bilaterally, no wheezes/rhonchi/rales. HEART: Regular rate and rhythm, no murmurs. No ectopy. EXTREMITIES: Normal, no deformities, no skin discoloration, no edema. NEURO: Awake, alert and oriented x3, cranial nerves II-XII grossly intact, normal gait, no involuntary motions. Labs: - Lipase: 239 U/L (elevated) - WBC: 18 times10 / microL (leukocytosis) Imaging: - CT Abdomen/Pancreas: Chronic pancreatitis changes with numerous calcifications and superimposed acute pancreatitis in the head and uncinate process, with pancreatic swelling and peripancreatic fat stranding Assessment and Plan 1. Subclavian arterial stenosis (I77.1) History of subclavian arterial stenosis with reported discrepancies in blood pressure readings between arms. - Ordered ultrasound to evaluate subclavian arterial stenosis. 2. Stenosis of left carotid artery (I65.22) History of left carotid artery stenosis. - Ordered ultrasound to evaluate carotid artery stenosis. 3. Acute pancreatitis without infection or necrosis, unspecified pancreatitis type (HCC) (K85.90) Recent hospitalization for acute pancreatitis with chronic pancreatitis changes. CT of the pancreas showed chronic pancreatitis changes with numerous calcifications and superimposed acute pancreatitis in the head and uncinate process with pancreatic swelling and peripancreatic fat stranding. Elevated lipase of 239 and leukocytosis of 18 noted. Patient has a history of pancreatic duct stent placement and multiple stone removals. - Follow-up with Dr. Segura in gastroenterology tomorrow. - Continue current pain management regimen with oxycodone 5 mg and tramadol. - Monitor dietary intake to prevent exacerbation of symptoms. 4. Hypertensive crisis (I16.9) Recent episode of hypertensive crisis with blood pressure readings as high as 197/71 during hospitalization. Currently on multiple antihypertensive medications including amlodipine, lisinopril, and clonidine. - Continue current antihypertensive regimen. - Monitor blood pressure regularly. 5. Chronic obstructive pulmonary disease with acute lower respiratory infection (HCC) (J44.0) Respiratory failure with hypoxia, unspecified chronicity (HCC) (J96.91) History of COPD and respiratory failure, currently on 5 liters of nasal cannula oxygen. Recent hospitalization with intubation due to acute respiratory failure. Patient has a history of tobacco use but has quit recently. - Continue oxygen therapy at 5 liters via nasal cannula. - Follow-up with pulmonology for ongoing management. - Encouraged continued smoking cessation. Voice recognition software was used to compose this office note. Please excuse any unintended typographical errors. Recording using [employer] software for draft documentation of the visit was discussed with the patient/authorized branch sales and service representative; all questions welcomed and answered. Patient/authorized branch sales and service representative agreed to proceed Misbah Elkins MD documented in this encounter [facility] 04-25-2025 Telephone encounter Note I [facility] Regards, Misbah Elkins MD [facility] 04-25-2025 Telephone encounter Note Pt just in and saw Dr. Elkins and checked out at 454 pm. Pt calling in asking about her pain med refill and see if it has been sent to the pharmacy yet. She states she doesn't want to get all the way home and have to come back out in the heat. (can hear a TV in the background). It appears note is not completed so pain med has not been sent in yet. Pt states she would rather have the Tramadol instead of the Oxycodone sent in. She is asking for a call back when the med has been sent in as her daughter is out and about and could pick it up for her. Explained that it is after hours and this might not get completed until tomorrow sometime. Pt verbalizes understanding but is hoping for the med tonight as she does not want to go back to the ER. [facility] 04-22-2025 Telephone encounter Note DORIAN pt has a script at the pharmacy. [facility] 04-22-2025 Miscellaneous Notes DORIAN pt has a script at the pharmacy. Unable to reach patient. Left VM to return call to office. Please read below and advise. Juan Borjas MA I will not be able to refill except for 10 pills. Thank you Images from the original note were not included. Reconcile dispense list shows a fill of Oxycodone HCL 5 MG qty: 10 tablets on 04/19/25. Juan Borjas MA [facility] does not show that she got any oxycodoe Staff do you see anything or does [facility] not have connection to [facility]? Regards, Misbah Elkins MD Patient calling in to let office know she was just discharged from [facility]. She made an appt to see on 04/25, however she states they gave her oxycodone to help with her pain, and she only has 4 left. She is wondering if she is able to get another refill. Please review and advise. Kiana Christy April 20, 2025 8:59 AM documented in this encounter [facility] 04-21-2025 Telephone encounter Note Unable to reach patient. Left VM to return call to office. Please read below and advise. Juan Borjas MA [facility] 04-21-2025 Telephone encounter Note I will not be able to refill except for 10 pills. Thank you [facility] 04-21-2025 Telephone encounter Note Images from the original note were not included. Reconcile dispense list shows a fill of Oxycodone HCL 5 MG qty: 10 tablets on 04/19/25. Juan Borjas MA [facility] 04-20-2025 Telephone encounter Note [facility] does not show that she got any oxycodoe Staff do you see anything or does [facility] not have connection to oarrr[facility]? Regards, Misbah Elkins MD [facility] 04-20-2025 Telephone encounter Note Patient calling in to let office know she was just discharged from [facility]. She made an appt to see on 04/25, however she states they gave her oxycodone to help with her pain, and she only has 4 left. She is wondering if she is able to get another refill. Please review and advise. Kiana Christy April 20, 2025 8:59 AM [facility] 04-19-2025 Note [facility] 04-19-2025 Consult note Note Date/Time April 19, 2025 1:16pm [facility] Medical Records Department [address] [place] [address] Counseling Note - Pharmacy 04/19/25 1031 MR#: [id number] Acct: [id number] Name: GRACIE BANUELOS Rep #:[id number] : 1965 59 From: Lexy Milan PCP: Dr. Misbah Elkins MD Status:ADM I N Y Location: [place] [address] Pharmacy [facility] Counseling Pharmacy Service has performed discharge medication reconciliation and counseling for this patient. 1. OXYCODONE 5MG PO Q8H PRN PAIN (DO NOT TAKE WITH TRAMADOL) The patient's discharge medication list was reviewed for discrepancies and discrepancies were resolved. The patient was counseled on the following discharge medications and changes in medications for homegoing were reviewed. The Reason for Use, instructions for use, and potential side effects were reviewed for all new medications. The patient's questions regarding all of their medications were answered. The patient was able to verbally demonstrate an understanding of their dischargemedications. Medications at Discharge Home Medications cholecalciferol (vitamin D3) 50 mcg (2,000 unit) capsule 50 mcg PO DAILY SUPPLEMENT 12/29/18 aripiprazole 5 mg tablet (Abilify) 5 mg PO DAILY mood 01/22/21 mirtazapine 45 mg tablet 45 mg PO QHS sleep 01/16/22 metoprolol tartrate 25 mg tablet 25 mg PO BID 30 days #60 tabs 01/05/24 lisinopril 10 mg tablet 10 mg PO QDAY hypertension 01/26/24 albuterol sulfate 90 mcg/actuation aerosol inhaler (Ventolin HFA) 2 puff inhalation Q4H PRN shortness of breath or wheezing #18 grams 05/11/24 nicotine 14 mg/24 hr daily transdermal patch 1 patch transdermal ONCE #28 ea 12/14/24 guaifenesin 100 mg/5 mL oral liquid 200 mg (10 mL) PO Q4H PRN congestion #473 mL12/16/24 meloxicam 7.5 mg tablet 7.5 mg PO QDAY pain 12/23/24 ondansetron 4 mg disintegrating tablet 4 mg PO Q6 PRN nausea/vomiting 12/23/24 Shower chair #1 ea 12/30/24 ipratropium 0.5 mg-albuterol 3 mg (2.5 mg base)/3 mL nebulization soln 3 ml inhalation Q4H shortness of breath or wheezing #360 mL 01/04/25 gabapentin 300 mg capsule 300 mg PO BID nerve pain 02/08/25 ondansetron 4 mg disintegrating tablet 4 mg PO Q8H PRN PRN Nausea #12 tabs 02/26/25 albuterol sulfate 2.5 mg/3 mL (0.083 %) solution for nebulization 2.5 mg continuous nebulization PRN COPD 03/13/25 amlodipine 5 mg tablet 5 mg PO DAILY hypertension 03/13/25 pantoprazole 40 mg tablet,delayed release 40 mg PO DAILY acid reflux 03/13/25 simvastatin 20 mg tablet 20 mg PO QHS high cholesterol 03/13/25 budesonide 160 mcg-glycopyr 9 mcg-formot 4.8 mcg/actuation HFA inhaler (Breztri Aerosphere) 2 inh inhalation BID #10.7 grams 04/10/25 hydroxyzine pamoate 25 mg capsule 25 mg PO QDAY PRN anxiety 04/10/25 tramadol 50 mg tablet 50 mg PO Q6 PRN pain 04/10/25 oxycodone 5 mg tablet 5 mg PO Q8H PRN PRN Pain Score 6-10 3 days #10 tabs 04/19/25 04/19/25 1031 <Electronically signed by Lexy Milan> Date _ Lexy Milan Cosigner Signature (if applicable): Date CC: ~ Signed [facility] Work Phone: 1(506) 896-628007-23-2025 Discharge summary Author Sudhir Izquierdo [facility] Note Date/Time April 19, 2025 9:33 am [facility] Medical Records Department [address] [place] [id number] Instructions for Home/Discharge Instructions 04/19/25 0907 MR#: [id number] Acct: [id number] Name: GRACIE BANUELOS Rep #:[id number] : 1965 59 From: Sudhir pace MD PCP: Dr. Misbah Elkins MD Status:ADM I N Discharge Instructions DC O2, CPAP, BIPAP needs Home O2 Discharge instructions: No Dressing / Incision Discharge Activity: Return to Normal Activity Dressing / Incision Call your doctor if you observe: Fever of 101 or Higher, Shortness of breath, Dizziness, Fainting spells, Swelling in the ankles, Chest pain and Increased palpitations (irregular heartbeat) Follow Up Care Test Results: Test results from this visit will be discussed in further detail at your follow- up appointment, if applicable. Discharge Plan Admission Admit Date/Time: 04/16/25 01:14 Attending Provider: Sudhir Izquierdo Primary Care Provider: Misbah Elkins Consulting Providers: Jackson Monk; Bert Greenwood Instructions Patient Instructions: Pancreatitis Chronic Dc Discharge Orders/Prescriptions Prescriptions: New oxycodone 5 mg Tablet 5 mg PO Q8H PRN PRN (Reason: Pain Score 6-10) 3 Days Qty: 10 0RF Continued mirtazapine 45 mg tablet 45 mg PO QHS lisinopril 10 mg tablet 10 mg PO QDAY albuterol sulfate [Ventolin HFA] 90 mcg/actuation HFA aerosol inhaler 2 puff INHALATION Q4H PRN (Reason: shortness of breath or wheezing) Qty: 18 11RF gabapentin 300 mg capsule 300 mg PO BID meloxicam 7.5 mg tablet 7.5 mg PO QDAY ondansetron 4 mg tablet,disintegrating 4 mg PO Q6 PRN (Reason: nausea/vomiting) tramadol 50 mg tablet 50 mg PO Q6 PRN (Reason: pain) hydroxyzine pamoate 25 mg capsule 25 mg PO QDAY PRN (Reason: anxiety) Breztri Aerosphere 160-9-4.8 mcg/actuation HFA aerosol inhaler 2 inh inhalation BID Qty: 10.7 6RF cholecalciferol (vitamin D3) 2,000 UNIT capsule 50 mcg PO DAILY aripiprazole [Abilify] 5 mg Tablet 5 mg PO DAILY metoprolol tartrate 25 mg Tablet 25 mg PO BID 30 Days Qty: 60 0RF Rx Instructions: Hold for heart less than 50 or systolic blood pressure less than 100 mmHg. albuterol sulfate 2.5 mg /3 mL (0.083 %) solution for nebulization 2.5 mg continuous nebulization PRN Patient Comments: Use 3 mL via nebulizer one time only for 1 dose. Use over 5-15minutes. amlodipine 5 mg tablet 5 mg PO DAILY pantoprazole 40 mg tablet,delayed release (DR/EC) 40 mg PO DAILY simvastatin 20 mg tablet 20 mg PO QHS ondansetron 4 mg tablet,disintegrating 4 mg PO Q8H PRN PRN (Reason: Nausea) Qty: 12 0RF nicotine 14 mg/24 hr [...] 3 ml inhalation Q4H Qty: 360 11RF Referrals / Follow Up: Misbah Elkins MD [Primary Care Provider] - Within 1 Week Friend,DO Marshal [Med Staff - Active Staff] - Within 1 Month Disposition Disposition (needs filled in before D/C Order can be placed): Home, Self Care 04/19/25 0933<Electronically signed by Sudhir Izquierdo MD>Sudhir Izquierdo MD CC: Dr. Misbah Elkins MD; Dr. Jackson Monk DO; Dr. Bert Greenwood MD ~ Signed [facility] Work Phone: [phone]) 602-648507-22-2025 Progress note Author Sudhir Izquierdo [facility] Note Date/Time April 18, 2025 5:53 pm [facility] Medical Records Department [address] [place] [address] Progress Note - Hospitalist 04/18/25 1744 MR#: [id number] Acct: [id number] Name: GRACIE BANUELOS Rep #:[id number] : 1965 59 From: Sudhir pace MD PCP: Dr. Misbah Elkins MD Status:ADM I N Location: [place]3 TW014-0 Subjective Subjective History of chronic pancreatitis continue abdominal pain. P.o. intake is not exacerbating her pain today. Objective Data Objective Data Vital Signs: Vital Signs Temp Pulse Resp BP Pulse Ox O2 Del Method O2 Flow Rate 98.2 F 94 18 149/73 H 94 Nasal Cannula 3 04/18/25 13:28 04/18/25 13:28 04/18/25 13:28 04/18/25 13:28 04/18/25 13:28 04/18/25 14:20 04/18/25 14:20 Oxygen Flow Rate (L/min) 3 Oxygen Delivery Method Nasal Cannula Weight: 123 lb 14.397 oz Body Mass Index (BMI) 21.9 Intake & Output: Intake and Output for Last 24 Hours 04/17/25 04/18/25 04/19/25 03:59 03:59 03:59 Intake Total 2321.67 / 2321.67 1360 / 1360 Balance 2321.67 / 2321.67 1360 / 1360 Lab / Micro Data 04/18/25 05:26 04/18/25 05:26 Labs: Laboratory Results - last 24 hr 04/18/25 05:26: WBC 11.1 H, RBC 3.34 L, Hgb 8.8 L, Hct 28.1 L, MCV 84.1, MCH 26.3 L, MCHC 31.3 L, RDW Std Deviation 45.5 H, RDW Coeff of Min 14.8 H, Plt Count 303, MPV 9.9, Immature Gran % (Auto) 0.500, Neut % (Auto) 60.1, Lymph % (Auto) 23.8, [place] % (Auto) 7.0, Eos % (Auto) 8.1 H, Baso % (Auto) 0.5, Absolute Neuts (auto) 6.6, Absolute Lymphs (auto) 2.64, Nucleated RBC % 0, Sodium 139, Potassium 3.7, Chloride 101, Carbon Dioxide 27.2, Anion Gap 12, BUN 5, Creatinine 0.57 L, Estim Creat Clear Calc 85.74, Est GFR (MDRD) Non-Af 103, BUN/Creatinine Ratio 8.6 L, Glucose 121 H, Calcium 8.8 Physical Exam Narrative General: Alert, Oriented x3, Cooperative, No apparent distress HEENT: Atraumatic, PERRLA, EOMI, Normocephalic Oral: Moist Mucosa Neck: Supple, No JVD Lungs: Diminished, Normal air movement, No rhonchi, No wheeze, No rales Cardiovascular: Regular rate, Regular Rhythm, Normal S1, Normal S2, No murmurs Abdomen: Soft, tender to palpation epigastric region, Non-Distended, No Hepato-splenomegaly Extremities: No edema, Capillary Refill Less than 3 Seconds Skin: No rashes, No breakdown Musculoskeletal: No Tenderness to Palpation of Joints or Extremities Neurological: No focal neurological deficits, Motor Exam 5/5 strength throughout, Sensory exam intact to light touch and pain Psych/Mental Status: Normal Affect, Appropriate Assessment & Plan Assessment/Plan (1) Acute on chronic pancreatitis: (2) Leukocytosis: QUALIFIERS: Leukocytosis type: unspecified Qualified Code(s): D72.829 - Elevated white blood cell count, unspecified (3) Hypertensive urgency: (4) Presence of pancreatic duct stent: (5) History of alcohol abuse: (6) History of tobacco abuse: (7) COPD (chronic obstructive pulmonary disease): QUALIFIERS: COPD type: emphysema Emphysema type: centrilobular Qualified Code(s): J43.2 - Centrilobular emphysema PLAN: Plan 1. Acute on chronic pancreatitis: CT abdomen initially reviewed which shows chronic pancreatitis changes with numerous calcification with superimposed acutepancreatitis in head and uncinate process with pancreatic swelling and peripancreatic fat stranding. She has pancreatic duct stent. Patient stated she quit smoking and drinking alcohol 10 months ago. Patient is very apprehensive of fluid overload therefore IV fluid cut down to 75 mg daily per hour with clear liquid. Basin criteria is 2 point though LDH not available andordered. I think that is 1% predicted mortality. IV morphine for pain control. Continue IV PPI 04/17: Diet advanced to full liquid to soft diet mashed potato, bland without fator oil. TB normal. Transaminases normal. ALP 113, LDH 145. Lipase 90 upper limit normal. Leukocytosis improved to 12.7 K. Anticipate discharge tomorrow 04/18/2025: Tolerating a diet without any significant increase in abdominal pain. I discontinued her morphine and will see how she tolerates oxycodone prior to discharge 2. Hypertensive Urgency with elevated blood pressure of 194/71 mmHg noted shortly after admission: BP fluctuates. Currently 113/74. Heart rate 114/min it was 190/71 last midnight. Clonidine 0.2 mg p.o. twice daily ordered. IV labetalol ordered. Will avoid IV hydralazine because it can cause tachycardia. 04/17: Heart rate And BP is controlled. BP 122/100. 04/18/2025: Blood pressure and heart rate are stable 3. Dyslipidemia on simvastatin. Fasting profile shows LDL 58, TC 128, TG 122.. 4. Recently quit alcohol smoking: B12 415. Folate 2.5. TSH 1.34. 5. Hyperlipidemia; on simvastatin - Hold statin and check lipid profile in caseof underlying hypertriglyceridemia as a cause for #1. 6. Anemia of chronic disease: H&H 10.6/33.6%, normocytic on admission. Repeat hemoglobin 9.3/hematocrit 30%. No significant drop. 04/18/2025: Remains stable we will continue to monitor 7. Anxiety and depression ? Continue with her home medications 8. GERD ? Stable ? Continue with pantoprazole DVT: Lovenox Charges/Coding Visit Charges Inpatient E&M: 86144 Subs Hosp L2 04/18/25 9476 <Electronically signed by Sudhir Izquierdo MD> Cosigner Signature (if applicable): CC: ~ Signed [facility] Work Phone: [phone]) 421-816807-21-2025 Progress note Author Bert Greenwood [facility] Note Date/Time April 17, 2025 4:43 pm [facility] Medical Records Department [address] [place] [address] Progress Note - Hospitalist 04/17/25 1640 MR#: [id number] Acct: [id number] Name: GRACIE BANUELOS Rep #:[id number] : 1965 59 From: Bert Back PCP: Dr. Misbah Elkins MD Status:ADM I N Location: [place] [address] Reason for Visit Chief Complaint: Abdominal Pain. Objective Data Objective Data Vital Signs: Vital Signs Temp Pulse Resp BP Pulse Ox O2 Del Method O2 Flow Rate 98.1 F 93 19 H 122/101 H 98 Nasal Cannula 4 04/17/25 14:40 04/17/25 14:40 04/17/25 14:40 04/17/25 14:40 04/17/25 14:40 04/17/25 14:40 04/17/25 14:40 Oxygen Flow Rate (L/min) 4 Oxygen Delivery Method Nasal Cannula Weight: 125 lb 10.616 oz Body Mass Index (BMI) 22.2 Intake & Output: Intake and Output for Last 24 Hours 04/15/25 04/16/25 04/17/25 23:59 23:59 23:59 Intake Total 2957.09 / 2957.09 480 / 480 Balance 2957.09 / 2957.09 480 / 480 Lab / Micro Data 04/17/25 06:49 04/17/25 06:49 Labs: Laboratory Results - last 24 hr 04/17/25 06:49: WBC 12.7 H, RBC 3.32 L, Hgb 8.9 L, Hct 28.3 L, MCV 85.2, MCH 26.8 L, MCHC 31.4 L, RDW Std Deviation 46.7 H, RDW Coeff of Min 14.9 H, Plt Count 310, MPV 10.3, Immature Gran % (Auto) 0.600, Neut % (Auto) 69.0, Lymph % (Auto) 16.6 L, [place] % (Auto) 8.3, Eos % (Auto) 5.0, Baso % (Auto) 0.5, Absolute Neuts (auto) 8.8 H, Absolute Lymphs (auto) 2.11, Nucleated RBC % 0, Sodium 139, Potassium 3.8, Chloride 101, Carbon Dioxide 26.9, Anion Gap 12, BUN4, Creatinine 0.57 L, Estim Creat Clear Calc 85.74, Est GFR (MDRD) Non-Af 103, BUN/Creatinine Ratio 7.7 L, Glucose 107 H, Calcium 9.1, Total Bilirubin 0.18, AST11, ALT 9, Alkaline Phosphatase 113 H, Lactate Dehydrogenase 145, Total Protein 6.0, Albumin 3.0 L, Globulin 3.0, Albumin/Globulin Ratio 1.0, Lipase 90 H Physical Exam Narrative Seen and examined. Her abdominal pain is better. She tolerated full liquid diet. Advance to soft transitional diet. Admitted for acute on chronic pancreatitis She was admitted last time in second week of February and at that time she had a fluid overload resulting into respiratory failure, intubation and then transferred to [facility]. Patient is very concerned of fluid overload at this time. She complained of pain 7-8 in right lower quadrant though she is tender all over. No fever. She had a pancreatic stent in the past in [facility] by Dr. Portillo. She also had pain injection probably in celiac block but she states she has injection in the pancreas Physical exam General: Alert, Oriented x3, Cooperative HEENT: Atraumatic, PERRLA, EOMI, Normocephalic. Oral: No Gingival or Mucosal Lesions/ Ulcerations Neck: Supple, No JVD, Negative Carotid Bruits Chest wall/Lungs: Air entry diminished in bilateral lung bases. No crepitation/rhonchi Cardiovascular: Regular rate and rhythm, Normal S1,S2, No M/G/R Abdomen: Bowel Sounds Present, Soft, mild tenderness present in right upper and lower quadrant. No tenderness in paralumbar area : No dysuria. No renal angle tenderness. No suprapubic tenderness. Extremities: No edema, Capillary Refill Less than 3 Seconds Skin: No rashes, No breakdown Musculoskeletal: No Tenderness to Palpation of Joints or Extremities Neurological: Cranial nerves II-XII grossly intact, DTR 2+/4. No acute focal neurological deficit. Psych/Mental Status: Normal Affect, Appropriate. Assessment & Plan Assessment/Plan (1) Acute on chronic pancreatitis: (2) Leukocytosis: QUALIFIERS: Leukocytosis type: unspecified Qualified Code(s): D72.829 - Elevated white blood cell count, unspecified (3) Hypertensive urgency: (4) Presence of pancreatic duct stent: (5) History of alcohol abuse: (6) History of tobacco abuse: (7) COPD (chronic obstructive pulmonary disease): QUALIFIERS: COPD type: emphysema Emphysema type: centrilobular Qualified Code(s): J43.2 - Centrilobular emphysema PLAN: Plan 59-year-old female admitted with abdominal pain and night before admission. History of chronic pancreatitis with pancreatic stent on 03/11/[address] Portillo in [facility]. She was discharged on 03/15/transferred to [facility]. 1. Acute on chronic pancreatitis: CT abdomen initially reviewed which shows chronic pancreatitis changes with numerous calcification with superimposed acutepancreatitis in head and uncinate process with pancreatic swelling and peripancreatic fat stranding. She has pancreatic duct stent. Patient stated she quit smoking and drinking alcohol 10 months ago. Patient is very apprehensive of fluid overload therefore IV fluid cut down to 75 mg daily per hour with clear liquid. Efren criteria is 2 point though LDH not available andordered. I think that is 1% predicted mortality. IV morphine for pain control. Continue IV PPI 04/17: Diet advanced to full liquid to soft diet mashed potato, bland without fator oil. TB normal. Transaminases normal. ALP 113, LDH 145. Lipase 90 upper limit normal. Leukocytosis improved to 12.7 K. Anticipate discharge tomorrow 2. Hypertensive Urgency with elevated blood pressure of 194/71 mmHg noted shortly after admission: BP fluctuates. Currently 113/74. Heart rate 114/min it was 190/71 last midnight. Clonidine 0.2 mg p.o. twice daily ordered. IV labetalol ordered. Will avoid IV hydralazine because it can cause tachycardia. 04/17: Heart rate And BP is controlled. BP 122/100. 3. Dyslipidemia on simvastatin. Fasting profile shows LDL 58, TC 128, TG 122.. 4. Recently quit alcohol smoking: B12 415. Folate 2.5. TSH 1.34. 5 6. Hyperlipidemia; on simvastatin - Hold statin and check lipid profile in case of underlying hypertriglyceridemia as a cause for #1. . Anemia of chronic disease: H&H 10.6/33.6%, normocytic on admission. Repeat hemoglobin 9.3/hematocrit 30%. No significant drop. History of chronic stenosis left subclavian artery Anxiety and depression GERD on pantoprazole, osteoarthritis with chronic back pain on meloxicam: Hold NSAID/meloxicam. History of stenosis of Left subclavian artery - Noted. DVT/GI prophylaxis - Enoxaparin 40 mg subcu daily plus SCDs. Pantoprazole 40 mg IV daily. Anticipate discharge tomorrow a.m. Laboratory Results 04/15/25 23:25: WBC 18.9 H, RBC 4.02 L, Hgb 10.7 L, Hct 33.6 L, MCV 83.6, MCH 26.6 L, MCHC 31.8 L, RDW Std Deviation 45.1 H, RDW Coeff of Min 14.6, Plt Count 291, MPV 9.5, Immature Gran % (Auto) 0.700, Neut % (Auto) 72.4 H, Lymph % (Auto)14.6 L, [place] % (Auto) 7.0, Eos % (Auto) 4.9, Baso % (Auto) 0.4, Absolute Neuts (auto) 13.6 H, Absolute Lymphs (auto) 2.76, Nucleated RBC % 0, Sodium 138, Potassium 3.6, Chloride 99, Carbon Dioxide 27.4, Anion Gap 11, BUN 4, Creatinine0.69 L, Estim Creat Clear Calc 70.83, Est GFR (MDRD) Non-Af 99, BUN/Creatinine Ratio 5.3 L, Glucose 111 H, Calcium 9.2, Magnesium 1.5, Total Bilirubin < 0.15, AST 16, ALT 13, Alkaline Phosphatase 127 H, Total Protein 6.9, Albumin 3.4, Globulin 3.5, Albumin/Globulin Ratio 1.0, Lipase 239 H, Ethyl Alcohol < 10.1 04/16/25 00:11: Urine Color Yellow, Urine Clarity Clear, Urine pH 7.0, Ur Specific [place] 1.005, Urine Protein 15 H, Urine Glucose (UA) Normal, Urine Ketones Negative, Urine Occult Blood Negative, Urine Nitrite Negative, Urine Bilirubin Negative, Urine Urobilinogen Normal, Ur Leukocyte Esterase 25 H, UrineRBC 0 SEEN, Urine WBC 0-5 SEEN, Ur Squamous Epith Cells 0-5 SEEN, Urine Bacteria0 SEEN, Urine Mucus 0 SEEN, Urine Opiates Screen PRESUMPTIVE POSITIVE, U Buprenorphine Qual NEGATIVE, Ur Oxycodone Screen NEGATIVE, Urine Methadone Screen NEGATIVE, Urine Fentanyl Screen NEGATIVE, Ur Barbiturates Screen NEGATIVE, Ur Phencyclidine Scrn NEGATIVE, Ur Amphetamines Screen NEGATIVE, U Benzodiazepines Scrn NEGATIVE, Urine Cocaine Screen NEGATIVE, U Cannabinoids Screen NEGATIVE 04/16/25 05:30: WBC 15.3 H, RBC 3.49 L, Hgb 9.3 L, Hct 30.1 L, MCV 86.2, MCH 26.6 L, MCHC 30.9 L, RDW Std Deviation 46.5 H, RDW Coeff of Min 14.7 H, Plt Count 275, MPV 9.7, Immature Gran % (Auto) 0.600, Neut % (Auto) 74.2 H, Lymph % (Auto) 14.2 L, [place] % (Auto) 7.0, Eos % (Auto) 3.7, Baso % (Auto) 0.3, Absolute Neuts (auto) 11.4 H, Absolute Lymphs (auto) 2.17, Nucleated RBC % 0, Sodium 139,Potassium 3.7, Chloride 103, Carbon Dioxide 24.6, Anion Gap 11, BUN 3 L, Creatinine 0.57 L, Estim Creat Clear Calc 85.74, Est GFR (MDRD) Non-Af 103, BUN/Creatinine Ratio 5.0 L, Glucose 102 H, Calcium 8.7, Phosphorus 4.4, Total Bilirubin < 0.15, AST 12, ALT 11, Alkaline Phosphatase 114 H, Total Protein 6.2,Albumin 3.0 L, Globulin 3.2, Albumin/Globulin Ratio 0.9, Triglycerides 122, Cholesterol 128, LDL Cholesterol, Calc 58, VLDL Cholesterol 24, HDL Cholesterol 46, Cholesterol/HDL Ratio 2.78, Vitamin B12 415, Serum Folate 10.50, TSH 1.340 Laboratory Results 04/17/25 06:49: WBC 12.7 H, RBC 3.32 L, Hgb 8.9 L, Hct 28.3 L, MCV 85.2, MCH 26.8 L, MCHC 31.4 L, RDW Std Deviation 46.7 H, RDW Coeff of Min 14.9 H, Plt Count 310, MPV 10.3, Immature Gran % (Auto) 0.600, Neut % (Auto) 69.0, Lymph % (Auto) 16.6 L, [place] % (Auto) 8.3, Eos % (Auto) 5.0, Baso % (Auto) 0.5, Absolute Neuts (auto) 8.8 H, Absolute Lymphs (auto) 2.11, Nucleated RBC % 0, Sodium 139, Potassium 3.8, Chloride 101, Carbon Dioxide 26.9, Anion Gap 12, BUN 4, Creatinine 0.57 L, Estim Creat Clear Calc 85.74, Est GFR (MDRD) Non-Af 103, BUN/Creatinine Ratio 7.7 L, Glucose 107 H, Calcium 9.1, Total Bilirubin 0.18, AST11, ALT 9, Alkaline Phosphatase 113 H, Lactate Dehydrogenase 145, Total Protein 6.0, Albumin 3.0 L, Globulin 3.0, Albumin/Globulin Ratio 1.0, Lipase 90 H Charges/Coding Visit Charges Inpatient E&M: 92729 Subs Hosp L2 04/17/25 1643 <Electronically signed by Bert Greenwood MD> Cosigner Signature (if applicable): CC: ~ Signed [facility] Work Phone: [phone] Progress note Author Bert Greenwood [facility] Note Date/Time April 16, 2025 3:27 pm [facility] Medical Records Department [address] [place] [address] Progress Note - Hospitalist 04/16/25 3043 MR#: [id number] Acct: [id number] Name: GRACIE BANUELOS Rep #:[id number] : 1965 59 From: Bert Back PCP: Dr. Misbah Elkins MD Status:ADM I N Location: [place] [address] Reason for Visit Chief Complaint: Abdominal Pain. Objective Data Objective Data Vital Signs: Vital Signs Temp Pulse Resp BP Pulse Ox O2 Del Method O2 Flow Rate 97.8 F 114 H 18 113/74 97 Nasal Cannula 4 04/16/25 14:02 04/16/25 14:02 04/16/25 14:02 04/16/25 14:02 04/16/25 14:02 04/16/25 14:02 04/16/25 14:02 Oxygen Flow Rate (L/min) 4 Oxygen Delivery Method Nasal Cannula Weight: 123 lb 14.397 oz Body Mass Index (BMI) 21.9 Intake & Output: Intake and Output for Last 24 Hours 04/14/25 04/15/25 04/16/25 23:59 23:59 23:59 Intake Total 1489.59 / 1489.59 Balance 1489.59 / 1489.59 Lab / Micro Data 04/16/25 05:30 04/16/25 05:30 Labs: Laboratory Results - last 24 hr 04/15/25 23:25: WBC 18.9 H, RBC 4.02 L, Hgb 10.7 L, Hct 33.6 L, MCV 83.6, MCH 26.6 L, MCHC 31.8 L, RDW Std Deviation 45.1 H, RDW Coeff of Min 14.6, Plt Count 291, MPV 9.5, Immature Gran % (Auto) 0.700, Neut % (Auto) 72.4 H, Lymph % (Auto)14.6 L, [place] % (Auto) 7.0, Eos % (Auto) 4.9, Baso % (Auto) 0.4, Absolute Neuts (auto) 13.6 H, Absolute Lymphs (auto) 2.76, Nucleated RBC % 0, Sodium 138, Potassium 3.6, Chloride 99, Carbon Dioxide 27.4, Anion Gap 11, BUN 4, Creatinine0.69 L, Estim Creat Clear Calc 70.83, Est GFR (MDRD) Non-Af 99, BUN/Creatinine Ratio 5.3 L, Glucose 111 H, Calcium 9.2, Magnesium 1.5, Total Bilirubin < 0.15, AST 16, ALT 13, Alkaline Phosphatase 127 H, Total Protein 6.9, Albumin 3.4, Globulin 3.5, Albumin/Globulin Ratio 1.0, Lipase 239 H, Ethyl Alcohol < 10.1 04/16/25 00:11: Urine Color Yellow, Urine Clarity Clear, Urine pH 7.0, Ur Specific [place] 1.005, Urine Protein 15 H, Urine Glucose (UA) Normal, Urine Ketones Negative, Urine Occult Blood Negative, Urine Nitrite Negative, Urine Bilirubin Negative, Urine Urobilinogen Normal, Ur Leukocyte Esterase 25 H, UrineRBC 0 SEEN, Urine WBC 0-5 SEEN, Ur Squamous Epith Cells 0-5 SEEN, Urine Bacteria0 SEEN, Urine Mucus 0 SEEN, Urine Opiates Screen PRESUMPTIVE POSITIVE, U Buprenorphine Qual NEGATIVE, Ur Oxycodone Screen NEGATIVE, Urine Methadone Screen NEGATIVE, Urine Fentanyl Screen NEGATIVE, Ur Barbiturates Screen NEGATIVE, Ur Phencyclidine Scrn NEGATIVE, Ur Amphetamines Screen NEGATIVE, U Benzodiazepines Scrn NEGATIVE, Urine Cocaine Screen NEGATIVE, U Cannabinoids Screen NEGATIVE 04/16/25 05:30: WBC 15.3 H, RBC 3.49 L, Hgb 9.3 L, Hct 30.1 L, MCV 86.2, MCH 26.6 L, MCHC 30.9 L, RDW Std Deviation 46.5 H, RDW Coeff of Min 14.7 H, Plt Count 275, MPV 9.7, Immature Gran % (Auto) 0.600, Neut % (Auto) 74.2 H, Lymph % (Auto) 14.2 L, [place] % (Auto) 7.0, Eos % (Auto) 3.7, Baso % (Auto) 0.3, Absolute Neuts (auto) 11.4 H, Absolute Lymphs (auto) 2.17, Nucleated RBC % 0, Sodium 139,Potassium 3.7, Chloride 103, Carbon Dioxide 24.6, Anion Gap 11, BUN 3 L, Creatinine 0.57 L, Estim Creat Clear Calc 85.74, Est GFR (MDRD) Non-Af 103, BUN/Creatinine Ratio 5.0 L, Glucose 102 H, Calcium 8.7, Phosphorus 4.4, Total Bilirubin < 0.15, AST 12, ALT 11, Alkaline Phosphatase 114 H, Total Protein 6.2,Albumin 3.0 L, Globulin 3.2, Albumin/Globulin Ratio 0.9, Triglycerides 122, Cholesterol 128, LDL Cholesterol, Calc 58, VLDL Cholesterol 24, HDL Cholesterol 46, Cholesterol/HDL Ratio 2.78, Vitamin B12 415, Serum Folate 10.50, TSH 1.340 Radiography Diagnostic Testing: Radiology Impression Abdomen/Pelvis CT 04/15/25 23:48 IMPRESSION: Acute on chronic pancreatitis in the pancreatic head/uncinate process. Reading Location: [place] [address] Physical Exam Narrative Seen and examined. Admitted for acute on chronic pancreatitis She was admitted last time in second week of February and at that time she had a fluid overload resulting into respiratory failure, intubation and then transferred to [facility]. Patient is very concerned of fluid overload at this time. She complained of pain 7-8 in right lower quadrant though she is tender all over. No fever. She had a pancreatic stent in the past in [facility] by Dr. Portillo. She also had pain injection probably in celiac block but she states she has injection in the pancreas Physical exam General: Alert, Oriented x3, Cooperative HEENT: Atraumatic, PERRLA, EOMI, Normocephalic. Oral: No Gingival or Mucosal Lesions/ Ulcerations Neck: Supple, No JVD, Negative Carotid Bruits Chest wall/Lungs: Air entry diminished in bilateral lung bases. No crepitation/rhonchi Cardiovascular: Regular rate and rhythm, Normal S1,S2, No M/G/R Abdomen: Bowel Sounds Present, Soft, tenderness present in right upper and lowerquadrant. Tenderness present in paraspinal lumbar, L1-L2 on left side : No dysuria. No renal angle tenderness. No suprapubic tenderness. Extremities: No edema, Capillary Refill Less than 3 Seconds Skin: No rashes, No breakdown Musculoskeletal: No Tenderness to Palpation of Joints or Extremities Neurological: Cranial nerves II-XII grossly intact, DTR 2+/4. No acute focal neurological deficit. Psych/Mental Status: Normal Affect, Appropriate. Assessment & Plan Assessment/Plan (1) Acute on chronic pancreatitis: (2) Leukocytosis: QUALIFIERS: Leukocytosis type: unspecified Qualified Code(s): D72.829 - Elevated white blood cell count, unspecified (3) Hypertensive urgency: (4) Presence of pancreatic duct stent: (5) History of alcohol abuse: (6) History of tobacco abuse: (7) COPD (chronic obstructive pulmonary disease): QUALIFIERS: COPD type: emphysema Emphysema type: centrilobular Qualified Code(s): J43.2 - Centrilobular emphysema PLAN: Plan 59-year-old female admitted with abdominal pain and night before admission. History of chronic pancreatitis with pancreatic stent on 03/11/[address] Portillo in [facility]. She was discharged on 03/15/transferred to [facility]. 1. Acute on chronic pancreatitis: CT abdomen initially reviewed which shows chronic pancreatitis changes with numerous calcification with superimposed acutepancreatitis in head and uncinate process with pancreatic swelling and peripancreatic fat stranding. She has pancreatic duct stent. Patient stated she quit smoking and drinking alcohol 10 months ago. Patient is very apprehensive of fluid overload therefore IV fluid cut down to 75 mg daily per hour with clear liquid. Efren criteria is 2 point though LDH not available andordered. I think that is 1% predicted mortality. IV morphine for pain control. Continue IV PPI 2. Hypertensive Urgency with elevated blood pressure of 194/71 mmHg noted shortly after admission: BP fluctuates. Currently 113/74. Heart rate 114/min it was 190/71 last midnight. Clonidine 0.2 mg p.o. twice daily ordered. IV labetalol ordered. Will avoid IV hydralazine because it can cause tachycardia. 3. Dyslipidemia on simvastatin. Fasting profile shows LDL 58, TC 128, TG 122.. 4. Recently quit alcohol smoking: B12 415. Folate 2.5. TSH 1.34. 5 6. Hyperlipidemia; on simvastatin - Hold statin and check lipid profile in case of underlying hypertriglyceridemia as a cause for #1. . Anemia of chronic disease: H&H 10.6/33.6%, normocytic on admission. Repeat hemoglobin 9.3/hematocrit 30%. No significant drop. History of chronic stenosis left subclavian artery Anxiety and depression GERD on pantoprazole, osteoarthritis with chronic back pain on meloxicam: Hold NSAID/meloxicam. History of stenosis of Left subclavian artery - Noted. DVT/GI prophylaxis - Enoxaparin 40 mg subcu daily plus SCDs. Pantoprazole 40 mg IV daily. Laboratory Results 04/15/25 23:25: WBC 18.9 H, RBC 4.02 L, Hgb 10.7 L, Hct 33.6 L, MCV 83.6, MCH 26.6 L, MCHC 31.8 L, RDW Std Deviation 45.1 H, RDW Coeff of Min 14.6, Plt Count 291, MPV 9.5, Immature Gran % (Auto) 0.700, Neut % (Auto) 72.4 H, Lymph % (Auto)14.6 L, [place] % (Auto) 7.0, Eos % (Auto) 4.9, Baso % (Auto) 0.4, Absolute Neuts (auto) 13.6 H, Absolute Lymphs (auto) 2.76, Nucleated RBC % 0, Sodium 138, Potassium 3.6, Chloride 99, Carbon Dioxide 27.4, Anion Gap 11, BUN 4, Creatinine0.69 L, Estim Creat Clear Calc 70.83, Est GFR (MDRD) Non-Af 99, BUN/Creatinine Ratio 5.3 L, Glucose 111 H, Calcium 9.2, Magnesium 1.5, Total Bilirubin < 0.15, AST 16, ALT 13, Alkaline Phosphatase 127 H, Total Protein 6.9, Albumin 3.4, Globulin 3.5, Albumin/Globulin Ratio 1.0, Lipase 239 H, Ethyl Alcohol < 10.1 04/16/25 00:11: Urine Color Yellow, Urine Clarity Clear, Urine pH 7.0, Ur Specific [place] 1.005, Urine Protein 15 H, Urine Glucose (UA) Normal, Urine Ketones Negative, Urine Occult Blood Negative, Urine Nitrite Negative, Urine Bilirubin Negative, Urine Urobilinogen Normal, Ur Leukocyte Esterase 25 H, UrineRBC 0 SEEN, Urine WBC 0-5 SEEN, Ur Squamous Epith Cells 0-5 SEEN, Urine Bacteria0 SEEN, Urine Mucus 0 SEEN, Urine Opiates Screen PRESUMPTIVE POSITIVE, U Buprenorphine Qual NEGATIVE, Ur Oxycodone Screen NEGATIVE, Urine Methadone Screen NEGATIVE, Urine Fentanyl Screen NEGATIVE, Ur Barbiturates Screen NEGATIVE, Ur Phencyclidine Scrn NEGATIVE, Ur Amphetamines Screen NEGATIVE, U Benzodiazepines Scrn NEGATIVE, Urine Cocaine Screen NEGATIVE, U Cannabinoids Screen NEGATIVE 04/16/25 05:30: WBC 15.3 H, RBC 3.49 L, Hgb 9.3 L, Hct 30.1 L, MCV 86.2, MCH 26.6 L, MCHC 30.9 L, RDW Std Deviation 46.5 H, RDW Coeff of Min 14.7 H, Plt Count 275, MPV 9.7, Immature Gran % (Auto) 0.600, Neut % (Auto) 74.2 H, Lymph % (Auto) 14.2 L, [place] % (Auto) 7.0, Eos % (Auto) 3.7, Baso % (Auto) 0.3, Absolute Neuts (auto) 11.4 H, Absolute Lymphs (auto) 2.17, Nucleated RBC % 0, Sodium 139,Potassium 3.7, Chloride 103, Carbon Dioxide 24.6, Anion Gap 11, BUN 3 L, Creatinine 0.57 L, Estim Creat Clear Calc 85.74, Est GFR (MDRD) Non-Af 103, BUN/Creatinine Ratio 5.0 L, Glucose 102 H, Calcium 8.7, Phosphorus 4.4, Total Bilirubin < 0.15, AST 12, ALT 11, Alkaline Phosphatase 114 H, Total Protein 6.2,Albumin 3.0 L, Globulin 3.2, Albumin/Globulin Ratio 0.9, Triglycerides 122, Cholesterol 128, LDL Cholesterol, Calc 58, VLDL Cholesterol 24, HDL Cholesterol 46, Cholesterol/HDL Ratio 2.78, Vitamin B12 415, Serum Folate 10.50, TSH 1.340 Charges/Coding Visit Charges Inpatient E&M: 74036 Subs Hosp L2 04/16/25 1527 <Electronically signed by Bert Greenwood MD> Cosigner Signature (if applicable): CC: ~ Signed [facility] Work Phone: [phone] History and physical note Author Jackson Chopra [facility] Note Date/Time April 16, 2025 6:01 am [facility] Medical Records Department [address] [place] [address] H&P Exam - Hospitalist 04/16/25 0049 MR#: [id number] Acct: [id number] Name: GRACIE BANUELOS Rep #:[id number] : 1965 59 From: Jackson Holcomb DO PCP: Dr. Misbah Elkins MD Status:ADM I N Location: [place] [address] HPI - General General Date of Admission: 04/16/25 Date of Service: 04/16/25 Chief Complaint: Abdominal Pain. HPI Priscilla BANUELOS, is a 59 F with a past medical history of essential hypertension; on amlodipine and lisinopril, hyperlipidemia; on simvastatin, history of tobaccoabuse for more than 30 years before quitting (02/2025); with subsequent asthma/stage III COPD, chronic hypoxic respiratory failure on 5L NC, remote history of EtOH abuse (quit 2020) with history of chronic pancreatitis, history of pancreatic stent placement at [facility] on March 10, 2025 with patient inthe process of transferring her care to Dr. Segura of gastroenterology here, history of stenosis of Left subclavian artery, chronic anemia, depression with anxiety; on aripiprazole and mirtazapine, GERD; on pantoprazole and OA; with chronic back pain on meloxicam and as needed tramadol every 6 hours who [facility] complaining of abdominal pain. Ms. Banuelos reports her symptoms began on the evening of April 14, 2025 with the abrupt-onset of pain in the middle of the night and gradually worsened throughout the day and has now become quite severe. She states her pain is better when she lies down but is much worse when she sits up and forward. She states her pain is primarily emanating from her RUQ with radiation into her backwith chronic intermittent pain since her recent treatment at [facility] thatincluded pancreatic duct placement with removal of multiple stones - but this ismuch worse. She states she did not eat any fatty meal or meat last night and she denies recent EtOH intake. She denies related fever, chills, nausea, vomiting, abnormal bowel movements, chest pain, palpitations, heart racing, lower extremity edema, dysuria, hematuria, headache or rash. In the ER she underwent CT of the abdomen and pelvis which revealed [id number] Pancreatitis in the pancreatic head/uncinate process with corresponding laboratory evidence of elevated lipase of 239 units/L and Leukocytosis of 18.9 Kpresent on admission complicated by Hypertensive Urgency with elevated blood pressure of 194/71 mmHg noted shortly after admission. She was then admitted tot general medical floor for ongoing care for state that is expected to extend beyond 2 midnights. [facility] Medical History (Updated 04/16/25 @ 01:[address] Jackson de Nav, DO) Encounter for replacement of pancreatic stent Stenosis of left subclavian artery Pulmonary nodule [...] PRN 12/16/24 Unknown Rx congestion #473 mL meloxicam 7.5 mg tablet 7.5 mg PO [...] l 03/13/25 03/12/25 21:00 History 20 mg budesonide 160 mcg-glycopyr 9 2 inh inhalation BID #10 .7 grams 04/10/25 Unknown Rx mcg-formot 4.8 mcg/actuation HFA inhaler (Breztri Aerosphere) hydroxyzine pamoate 25 mg capsule 25 mg PO QDAY PRN an xiety 04/10/25 Unknown History tramadol 50 mg tablet 50 mg PO Q6 PRN pain 5 Unknown History Allergy/AdvReac Type Severity Reaction Status Date / Time clindamycin Allergy Intermediate Hives Verified 04/15/25 22:49 Penicillins Allergy Hives Verified 04/15/25 22:49 sulfamethoxazole (From Allergy Other Verified 04/15/25 22:49 Bactrim) trimethoprim (From Bactrim) Allergy Other Verified 04/15/25 22:49 hydrocodone (From [place]) AdvReac Itching Verified 04/15/25 22:49 Family History Mother Diabetes Hypertension Heart disease High cholesterol Arthritis Thyroid disorder Brother Hypertension Sister Cancer cervical Thyroid disorder Father Kidney disease Daughter Thyroid disorder Surgical History History of tubal ligation History of colonoscopy History of appendectomy Social History household members: family Smoking Status: Former smoker quit date: 03/25/25 Tobacco: How many years used: 30 second hand exposure: Yes alcohol intake: former details: Sober since 2020. substance use type: does not use caffeine: Yes ROS ROS Narrative Review of Systems: Constitutional: Patient denies fever or chills. Eyes: Patient denies changes in vision or discharge from eyes. ENT: Patient denies runny nose, sore throat or ear pain. Resp: Patient denies acute increase in her chronic shortness of breath and she denies cough or wheezing. CV: Patient denies chest pain, palpitations, heart racing or lower extremity edema. GI: Patient admits to abdominal pain primarily from her RUQ radiating to her back but she denies nausea, vomiting, diarrhea or constipation. : Patient denies dysuria, hematuria urinary frequency. MSK: Patient admits to back pain but she denies neck pain. Skin: Patient denies rash, abscess, wounds or jaundice. Psych: Patient denies symptoms uncontrolled depression or anxiety. Neuro: Patient denies headache, paresthesias or focal neurologic deficits. Allergy: Patient denies lip swelling, tongue swelling or urticaria. Hematology: Patient denies easy bleeding or easy bruisability. Endocrinology: Patient denies polyuria, polydipsia, polyphagia or heat/cold intolerance. 14 point ROS otherwise negative except for positives noted above in HPI. Vital Signs Vital Signs Vital Signs: 04/15/25 22:49 Temperature 97.4 F L Temperature Source Temporal Pulse Rate 102 H Respiratory Rate 24 H Blood Pressure 122/86 H Blood Pressure Mean 98 Pulse Ox 92 Oxygen Delivery Method Nasal Cannula Oxygen Flow Rate (L/min) 4 Weight Weight: 126 lb 15.78 oz Body Mass Index (BMI) 22.4 Physical Exam Const alert, oriented x3, no apparent distress and average body habitus General Appearance: cooperative HEENT normocephalic, head/scalp atraumatic, hearing grossly normal bilaterally and moist oral mucous membranes Eyes PERRL, EOMs intact bilaterally and conjunctivae normal Neck no lymphadenopathy, supple and no JVD Resp Resp Narrative: Diminished breath sounds throughout. Cardio regular rate and regular rhythm GI GI Narrative: Mild diffuse tenderness focused in the RUQ and epigastrium that is moderate to severe. No rebound tenderness or guarding noted. Normoactive bowel sounds alsonoted. Extremity normal to inspection, full ROM and no clubbing, cyanosis or edema Skin Skin Narrative: Patient has no evidence of rash, abscess, wounds or jaundice. Neuro oriented x3, CN's II-XII intact bilaterally, moves all extremities and no focal motor deficits Sensorium / Orientation: awake, alert, oriented to person, oriented to place andoriented to time Speech: speech normal Psych affect normal Results Medical Records Data Attestation: I reviewed the patient's medical records Lab / Micro Data Attestation: I reviewed the patient's lab results. 04/16/25 05:30 04/15/25 23:25 Labs: Laboratory Results - last 24 hr 04/15/25 23:25: WBC 18.9 H, RBC 4.02 L, Hgb 10.7 L, Hct 33.6 L, MCV 83.6, MCH 26.6 L, MCHC 31.8 L, RDW Std Deviation 45.1 H, RDW Coeff of Min 14.6, Plt Count 291, MPV 9.5, Immature Gran % (Auto) 0.700, Neut % (Auto) 72.4 H, Lymph % (Auto)14.6 L, [place] % (Auto) 7.0, Eos % (Auto) 4.9, Baso % (Auto) 0.4, Absolute Neuts (auto) 13.6 H, Absolute Lymphs (auto) 2.76, Nucleated RBC % 0, Sodium 138, Potassium 3.6, Chloride 99, Carbon Dioxide 27.4, Anion Gap 11, BUN 4, Creatinine0.69 L, Estim Creat Clear Calc 70.83, Est GFR (MDRD) Non-Af 99, BUN/Creatinine Ratio 5.3 L, Glucose 111 H, Calcium 9.2, Total Bilirubin < 0.15, AST 16, ALT 13,Alkaline Phosphatase 127 H, Total Protein 6.9, Albumin 3.4, Globulin 3.5, Albumin/Globulin Ratio 1.0, Lipase 239 H 04/16/25 00:11: Urine Color Yellow, Urine Clarity Clear, Urine pH 7.0, Ur Specific [place] 1.005, Urine Protein 15 H, Urine Glucose (UA) Normal, Urine Ketones Negative, Urine Occult Blood Negative, Urine Nitrite Negative, Urine Bilirubin Negative, Urine Urobilinogen Normal, Ur Leukocyte Esterase 25 H, UrineRBC 0 SEEN, Urine WBC 0-5 SEEN, Ur Squamous Epith Cells 0-5 SEEN, Urine Bacteria0 SEEN, Urine Mucus 0 SEEN Imaging Radiology Impression Abdomen/Pelvis CT 04/15/25 23:48 IMPRESSION: Acute on chronic pancreatitis in the pancreatic head/uncinate process. Reading Location: [place] [address] Assessment & Plan Assessment/Plan (1) Acute on chronic pancreatitis: (2) Leukocytosis: QUALIFIERS: Leukocytosis type: unspecified Qualified Code(s): D72.829 - Elevated white blood cell count, unspecified (3) Hypertensive urgency: (4) Presence of pancreatic duct stent: (5) History of alcohol abuse: (6) History of tobacco abuse: (7) COPD (chronic obstructive pulmonary disease): QUALIFIERS: COPD type: emphysema Emphysema type: centrilobular Qualified Code(s): J43.2 - Centrilobular emphysema PLAN: Plan 1. CT of the abdomen and pelvis which revealed [id number] Pancreatitis inthe pancreatic head/uncinate process with corresponding laboratory evidence of elevated lipase of 239 units/L - Admit to general medical floor. Keep strict NPO. Give pantoprazole 40 mg IV daily. Give ondansetron IV as needed nausea vomiting. Give promethazine IM as needed for breakthrough nausea. Give ketorolac IV for [id number] (level 1-5/10) pain or fever. Give morphine IV as needed for severe (level 6-10/10) pain. Check MRCP. Finally, we will consult gastroenterology to see this patient on rounds in the a.m. for further recommendations with help appreciated in advance. 2. Leukocytosis of 18.9 K present on admission suspected to be due to acute stress response arising from #1 with no obvious identifiable source of infectionat this time - Check CBC daily to follow trend. 3. Hypertensive Urgency with elevated blood pressure of 194/71 mmHg noted shortly after admission likely due to #1 - Hold oral antihypertensives and give hydralazine IV as needed for systolic blood pressure greater than 160 mmHg. 4. History of pancreatic stent placement at [facility] on March 10, 2025 with patient in the process of transferring her care to Dr. Segura of gastroenterology here adding to the medical complexity of #1 - #3 - Noted with the patient not actually having been seen by Dr. Segura as of yet. 5. Remote history of EtOH abuse (quit 2020) with history of chronic pancreatitis adding to the burden of disease outlined from #1 - #4 - Check JOLANTA ad UDS to confirm sobriety. 6. History of tobacco abuse for more than 30 years before quitting (02/2025); with subsequent asthma/stage III COPD, chronic hypoxic respiratory failure on ~4-5L NC - Stable with no evidence of acute flare at this time. Continue as needed nebulizers. 7. Essential hypertension; on amlodipine and lisinopril - Hold oral antihypertensives as noted above and give hydralazine IV as needed for systolic pressure greater than 160 mmHg. 8. Hyperlipidemia; on simvastatin - Hold statin and check lipid profile in caseof underlying hypertriglyceridemia as a cause for #1. 9. History of stenosis of Left subclavian artery - Noted. 10. Chronic anemia - Apparently stable with hemoglobin of 10.7 g/dL and MCV of 83.6 fL present on admission. 11. Depression with anxiety; on aripiprazole and mirtazapine - Hold oral medications until patient can safely tolerate oral intake. 12. GERD; on pantoprazole - Patient switched to PPI as outlined in #1. 13. OA; with chronic back pain on meloxicam and as needed tramadol every 6 hours - We will follow pain regimen and scale as outlined in #1. 14. DVT/GI prophylaxis - Enoxaparin 40 mg subcu daily plus SCDs. Pantoprazole 40 mg IV daily. Total time: Approximately (midnight less than) 75 minutes. Charges/Coding Visit Charges Inpatient E&M: 24471 Init Hosp L3 04/16/25 0601 <Electronically signed by Jackson Monk DO> Cosigner Signature (if applicable): CC: Dr. Misbah Elkins MD; Dr. Jackson Monk DO~ Signed [facility] Work Phone: 1(536) 712-871207-20-2025 Discharge summary Author Erik Gomez [facility] Note Date/Time April 16, 2025 12:5 6am [facility] Medical Records Department [address] [place] [address] Emergency Department Summary 04/15/25 MR#: [id number] Acct: [id number] Name: GRACIE BANUELOS Salvatore Rep #:[id number] : 1965 59 From: Erik Gomez MD PCP: Dr. Misbah Elkins MD Status:REG E R Location: ED HPI HPI - GI History of Present Illness Chief Complaint: Abd Pain Informant: patient Narrative Narrative: 59-year-old female presenting with abdominal pain. It started last night in themiddle of the night, it gradually worsened all day today and has become quite severe. She feels better when she lies down but it is much worse when she sits up and forward. It is kind of everywhere but the majority of it is right upper quadrant. She had a pancreatic stent put in on March 10 at [facility], it was placed due to chronic pancreatitis and stones in the duct, many of which were removed during that procedure. She states she has been having discomfort like this off-and-on since then but not this severe. She did not eat any fat or meat lastnight, she had some fruit and nothing else before going to bed later. No nauseaor vomiting. It does radiate into her back a little. No fevers or chills. No abnormal bowel movements or urination since then. Has had no alcohol recently. Has also not had a cigarette in over 2 weeks. [facility] Medical History Encounter for replacement of pancreatic stent Stenosis of left subclavian artery Pulmonary nodule [...] PRN 12/16/24 Unknown Rx congestion #473 mL hydroxyzine HCl 25 mg tablet 25 mg [...] l 03/13/25 03/12/25 21:00 History 20 mg budesonide 160 mcg-glycopyr 9 2 inh inhalation BID #10 .7 grams 04/10/25 Unknown Rx mcg-formot 4.8 mcg/actuation HFA inhaler (Breztri Aerosphere) hydroxyzine pamoate 25 mg capsule 25 mg PO QDAY PRN Unknown History tramadol 50 mg tablet 50 mg PO Q6 PRN pain 5 Unknown History Allergy/AdvReac Type Severity Reaction Status Date / Time clindamycin Allergy Intermediate Hives Verified 04/15/25 22:49 Penicillins Allergy Hives Verified 04/15/25 22:49 sulfamethoxazole (From Allergy Other Verified 04/15/25 22:49 Bactrim) trimethoprim (From Bactrim) Allergy Other Verified 04/15/25 22:49 hydrocodone (From [place]) AdvReac Itching Verified 04/15/25 22:49 Family History Mother Diabetes Hypertension Heart disease High cholesterol Arthritis Thyroid disorder Brother Hypertension Sister Cancer cervical Thyroid disorder Father Kidney disease Daughter Thyroid disorder Surgical History (Reviewed 04/10/25 @ 10:18 by Ani Eduardo [employer]ING [employer]ER, [employer]ING [employer]ACH[employer]ER-C) History of tubal ligation History of colonoscopy History of appendectomy Social History household members: family Smoking Status: Former smoker quit date: 03/25/25 Tobacco: How many years used: 30 second hand exposure: Yes alcohol intake: former details: Sober since 2020. substance use type: does not use caffeine: Yes ROS ROS ED Constitutional Constitutional ED: Denies chills or fever(s) Eyes Eyes: Denies change in vision or diplopia ENT ENT ED: Denies rhinorrhea or sore throat Cardiovascular Cardiovascular: Denies chest pain or palpitations Respiratory/Chest Respiratory/Chest: Reports cough and other Details: chronic cough, not acutely worse ; Denies dyspnea Gastrointestinal Gastrointestinal: Reports abdominal pain; Denies diarrhea, melena, nausea or vomiting Genitourinary Genitourinary ED: Denies dysuria or hematuria Musculoskeletal Musculoskeletal: Reports back pain; Denies neck pain Integumentary Denies abscess or rash Neurologic Neurologic: Denies headache(s), paresthesias or weakness Psychiatric Psychiatric: Denies suicidal thoughts EXAM Physical Exam Const Vital Signs: 04/15/25 22:49 04/16/25 00:49 Temperature 97.4 F L Temperature Source Temporal Pulse Rate 102 H 93 Respiratory Rate 24 H 18 Blood Pressure 122/86 H 194/71 H Blood Pressure Mean 98 112 Pulse Ox 92 100 Oxygen Delivery Method Nasal Cannula Nasal Cannula Oxygen Flow Rate (L/min) 4 4 Positive well nourished and well developed General Appearance ED: well developed and NAD HEENT Reports moist mucous membranes normocephalic and atraumatic Eyes PERRL and EOMs intact bilaterally Neck full ROM and supple Resp normal respiratory effort and clear to auscultation bilaterally Resp Narrative: Diminished throughout no distress conversing in full sentences Cardio regular rate, regular rhythm and no murmurs GI non-distended GI Narrative: Mild diffuse tenderness, focused right upper quadrant and epigastrium more moderate to severe. No rebound tenderness no guarding. Auscultation: normoactive bowel sounds Palpation: soft Back/Spine no CVA tenderness General Back: other FROM Extremity normal to inspection General Extremety ED: Negative for edema, pulses abnormal or tenderness General Extremity: Negative for edema or pulses abnormal Neuro oriented x3, CN's II-XII intact bilaterally and no sensory deficits noted Sensorium / Orientation: awake and alert Motor Exam: strength 5/5 throughout Skin no rashes or lesions noted and no wounds MDM MDM MDM Narrative Medical decision making narrative: Patient was given morphine, IV fluids, Zofran while we did a workup with a CT, she presents after ultrasound is no longer available. The labs and CT both consistent with acute on chronic pancreatitis. She has a leukocytosis of 18.9 but she usually does have a leukocytosis and this is a little less than her prior. Urine unremarkable. Bilirubin is normal as are the rest of her liver enzymes except for slightly elevated alkaline phosphatase. I think she should be admitted and treated for pancreatitis and NPO, discussed with hospitalist. History & Record Review Additional record(s) reviewed:: Prior outpatient record (Procedure note shown bypatient for ERCP and pancreatic stent placement 03/10/2025) Lab Data Attestation: I reviewed the patient's lab results. Labs: Laboratory Results - last 24 hr 04/15/25 04/16/25 23:25 00:11 WBC 18.9 H RBC 4.02 L Hgb 10.7 L Hct 33.6 L MCV 83.6 MCH 26.6 L MCHC 31.8 L RDW Std Deviation 45.1 H RDW Coeff of Min 14.6 Plt Count 291 MPV 9.5 Immature Gran % (Auto) 0.700 Neut % (Auto) 72.4 H Lymph % (Auto) 14.6 L [place] % (Auto) 7.0 Eos % (Auto) 4.9 Baso % (Auto) 0.4 Absolute Neuts (auto) 13.6 H Absolute Lymphs (auto) 2.76 Nucleated RBC % 0 Sodium 138 Potassium 3.6 Chloride 99 Carbon Dioxide 27.4 Anion Gap 11 BUN 4 Creatinine 0.69 L Estim Creat Clear Calc 70.83 Est GFR (MDRD) Non-Af 99 BUN/Creatinine Ratio 5.3 L Glucose 111 H Calcium 9.2 Total Bilirubin < 0.15 AST 16 ALT 13 Alkaline Phosphatase 127 H Total Protein 6.9 Albumin 3.4 Globulin 3.5 Albumin/Globulin Ratio 1.0 Lipase 239 H Urine Color Yellow Urine Clarity Clear Urine pH 7.0 Ur Specific [place] 1.005 Urine Protein 15 H Urine Glucose (UA) Normal Urine Ketones Negative Urine Occult Blood Negative Urine Nitrite Negative Urine Bilirubin Negative Urine Urobilinogen Normal Ur Leukocyte Esterase 25 H Urine RBC 0 SEEN Urine WBC 0-5 SEEN Ur Squamous Epith Cells 0-5 SEEN Urine Bacteria 0 SEEN Urine Mucus 0 SEEN Radiography Diagnostic Testing: Clinical Impression(s) from Imaging Studies Abdomen/Pelvis CT 04/15/25 23:48 IMPRESSION: Acute on chronic pancreatitis in the pancreatic head/uncinate process. Reading Location: [place] [address] Management Discussion w/another healthcare provider: Hospitalist Discharge Plan Dx/Rx/DC Orders Clinical Impression: Acute on chronic pancreatitis, Presence of pancreatic duct stent Disposition Disposition: Acute Care Hospital [facility] What to do if you have Problems For any increased pain, shortness of breath, bleeding, nausea or vomiting, chestpain, or any unexpected problems, contact your Primary Care Provider. Call [facility] ([phone]) or report to the closest Emergency Room. Call 911 if necessary. 04/16/25 0056 <Electronically signed by Erik Gomez MD> Cosigner Signature (if applicable): CC: Dr. Misbah Elkins MD ~ Signed [facility] Work Phone: 1(382) 157-901107-20-2025 Radiology Diagnostic study [facility]07-19-2025 Discharge summary Author Erik Gomez [facility] Note Date/Time April 16, 2025 12:5 6am [facility] Medical Records Department [address] [place] [address] Emergency Department Summary 04/15/25 MR#: [id number] Acct: [id number] Name: GRACIE BANUELOS Rep #:[id number] : 1965 59 From: Erik Gomez MD PCP: Dr. Misbah Elkins MD Status:REG E R Location: ED HPI HPI - GI History of Present Illness Chief Complaint: Abd Pain Informant: patient Narrative Narrative: 59-year-old female presenting with abdominal pain. It started last night in themiddle of the night, it gradually worsened all day today and has become quite severe. She feels better when she lies down but it is much worse when she sits up and forward. It is kind of everywhere but the majority of it is right upper quadrant. She had a pancreatic stent put in on March 10 at [facility], it was placed due to chronic pancreatitis and stones in the duct, many of which were removed during that procedure. She states she has been having discomfort like this off-and-on since then but not this severe. She did not eat any fat or meat lastnight, she had some fruit and nothing else before going to bed later. No nauseaor vomiting. It does radiate into her back a little. No fevers or chills. No abnormal bowel movements or urination since then. Has had no alcohol recently. Has also not had a cigarette in over 2 weeks. [facility] Medical History Encounter for replacement of pancreatic stent Stenosis of left subclavian artery Pulmonary nodule [...] PRN 12/16/24 Unknown Rx congestion #473 mL hydroxyzine HCl 25 mg tablet 25 mg [...] l 03/13/25 03/12/25 21:00 History 20 mg budesonide 160 mcg-glycopyr 9 2 inh inhalation BID #10 .7 grams 04/10/25 Unknown Rx mcg-formot 4.8 mcg/actuation HFA inhaler (Breztri Aerosphere) hydroxyzine pamoate 25 mg capsule 25 mg PO QDAY PRN Unknown History tramadol 50 mg tablet 50 mg PO Q6 PRN pain 5 Unknown History Allergy/AdvReac Type Severity Reaction Status Date / Time clindamycin Allergy Intermediate Hives Verified 04/15/25 22:49 Penicillins Allergy Hives Verified 04/15/25 22:49 sulfamethoxazole (From Allergy Other Verified 04/15/25 22:49 Bactrim) trimethoprim (From Bactrim) Allergy Other Verified 04/15/25 22:49 hydrocodone (From [place]) AdvReac Itching Verified 04/15/25 22:49 Family History Mother Diabetes Hypertension Heart disease High cholesterol Arthritis Thyroid disorder Brother Hypertension Sister Cancer cervical Thyroid disorder Father Kidney disease Daughter Thyroid disorder Surgical History (Reviewed 04/10/25 @ 10:18 by Ani Eduardo [employer] TENDER, [employer]YRENE MOLDING MACHINE TENDER-C) History of tubal ligation History of colonoscopy History of appendectomy Social History household members: family Smoking Status: Former smoker quit date: 03/25/25 Tobacco: How many years used: 30 second hand exposure: Yes alcohol intake: former details: Sober since 2020. substance use type: does not use caffeine: Yes ROS ROS ED Constitutional Constitutional ED: Denies chills or fever(s) Eyes Eyes: Denies change in vision or diplopia ENT ENT ED: Denies rhinorrhea or sore throat Cardiovascular Cardiovascular: Denies chest pain or palpitations Respiratory/Chest Respiratory/Chest: Reports cough and other Details: chronic cough, not acutely worse ; Denies dyspnea Gastrointestinal Gastrointestinal: Reports abdominal pain; Denies diarrhea, melena, nausea or vomiting Genitourinary Genitourinary ED: Denies dysuria or hematuria Musculoskeletal Musculoskeletal: Reports back pain; Denies neck pain Integumentary Denies abscess or rash Neurologic Neurologic: Denies headache(s), paresthesias or weakness Psychiatric Psychiatric: Denies suicidal thoughts EXAM Physical Exam Const Vital Signs: 04/15/25 22:49 04/16/25 00:49 Temperature 97.4 F L Temperature Source Temporal Pulse Rate 102 H 93 Respiratory Rate 24 H 18 Blood Pressure 122/86 H 194/71 H Blood Pressure Mean 98 112 Pulse Ox 92 100 Oxygen Delivery Method Nasal Cannula Nasal Cannula Oxygen Flow Rate (L/min) 4 4 Positive well nourished and well developed General Appearance ED: well developed and NAD HEENT Reports moist mucous membranes normocephalic and atraumatic Eyes PERRL and EOMs intact bilaterally Neck full ROM and supple Resp normal respiratory effort and clear to auscultation bilaterally Resp Narrative: Diminished throughout no distress conversing in full sentences Cardio regular rate, regular rhythm and no murmurs GI non-distended GI Narrative: Mild diffuse tenderness, focused right upper quadrant and epigastrium more moderate to severe. No rebound tenderness no guarding. Auscultation: normoactive bowel sounds Palpation: soft Back/Spine no CVA tenderness General Back: other FROM Extremity normal to inspection General Extremety ED: Negative for edema, pulses abnormal or tenderness General Extremity: Negative for edema or pulses abnormal Neuro oriented x3, CN's II-XII intact bilaterally and no sensory deficits noted Sensorium / Orientation: awake and alert Motor Exam: strength 5/5 throughout Skin no rashes or lesions noted and no wounds MDM MDM MDM Narrative Medical decision making narrative: Patient was given morphine, IV fluids, Zofran while we did a workup with a CT, she presents after ultrasound is no longer available. The labs and CT both consistent with acute on chronic pancreatitis. She has a leukocytosis of 18.9 but she usually does have a leukocytosis and this is a little less than her prior. Urine unremarkable. Bilirubin is normal as are the rest of her liver enzymes except for slightly elevated alkaline phosphatase. I think she should be admitted and treated for pancreatitis and NPO, discussed with hospitalist. History & Record Review Additional record(s) reviewed:: Prior outpatient record (Procedure note shown bypatient for ERCP and pancreatic stent placement 03/10/2025) Lab Data Attestation: I reviewed the patient's lab results. Labs: Laboratory Results - last 24 hr 04/15/25 04/16/25 23:25 00:11 WBC 18.9 H RBC 4.02 L Hgb 10.7 L Hct 33.6 L MCV 83.6 MCH 26.6 L MCHC 31.8 L RDW Std Deviation 45.1 H RDW Coeff of Imn 14.6 Plt Count 291 MPV 9.5 Immature Gran % (Auto) 0.700 Neut % (Auto) 72.4 H Lymph % (Auto) 14.6 L [place] % (Auto) 7.0 Eos % (Auto) 4.9 Baso % (Auto) 0.4 Absolute Neuts (auto) 13.6 H Absolute Lymphs (auto) 2.76 Nucleated RBC % 0 Sodium 138 Potassium 3.6 Chloride 99 Carbon Dioxide 27.4 Anion Gap 11 BUN 4 Creatinine 0.69 L Estim Creat Clear Calc 70.83 Est GFR (MDRD) Non-Af 99 BUN/Creatinine Ratio 5.3 L Glucose 111 H Calcium 9.2 Total Bilirubin < 0.15 AST 16 ALT 13 Alkaline Phosphatase 127 H Total Protein 6.9 Albumin 3.4 Globulin 3.5 Albumin/Globulin Ratio 1.0 Lipase 239 H Urine Color Yellow Urine Clarity Clear Urine pH 7.0 Ur Specific Brockwell 1.005 Urine Protein 15 H Urine Glucose (UA) Normal Urine Ketones Negative Urine Occult Blood Negative Urine Nitrite Negative Urine Bilirubin Negative Urine Urobilinogen Normal Ur Leukocyte Esterase 25 H Urine RBC 0 SEEN Urine WBC 0-5 SEEN Ur Squamous Epith Cells 0-5 SEEN Urine Bacteria 0 SEEN Urine Mucus 0 SEEN Radiography Diagnostic Testing: Clinical Impression(s) from Imaging Studies Abdomen/Pelvis CT 04/15/25 23:48 IMPRESSION: Acute on chronic pancreatitis in the pancreatic head/uncinate process. Reading Location: [place] [address] Management Discussion w/another healthcare provider: Hospitalist Discharge Plan Dx/Rx/DC Orders Clinical Impression: Acute on chronic pancreatitis, Presence of pancreatic duct stent Disposition Disposition: Acute Care Hospital [facility] What to do if you have Problems For any increased pain, shortness of breath, bleeding, nausea or vomiting, chestpain, or any unexpected problems, contact your Primary Care Provider. Call [facility] ([phone]) or report to the closest Emergency Room. Call 911 if necessary. 04/16/25 0056 <Electronically signed by Erik Gomez MD> Cosigner Signature (if applicable): CC: Dr. Misbah Elkins MD ~ Signed [facility] Work Phone: 1(793) 344-742307-15-2025 Telephone encounter Note* Telephone Encounter - Yuly France - 04/11/2025 9:33 AM EDT Transitional Care Management (TCM) [facility] Monitoring Program Provider Action / FYI: na SUMMARY: Outreach type: INITIAL OUTREACH Discharge Network Status: In-Network [facility]charge [facility] Patient discharged from [facility] on 03.23.25. Admitted for acute on chronic respiratory failure with hypoxia. . . . . Contact made with patient: No - 2nd unsuccessful attempt - end outreach and close encounter. Yuly France April 11, 2025 9:34 AM [facility]07-15-2025 Miscellaneous Notes* Telephone Encounter - Yuly France - 04/11/2025 9:33 AM EDT Transitional Care Management (TCM) [facility] Monitoring [facility] Provider Action / FYI: na SUMMARY: Outreach type: INITIAL OUTREACH Discharge Network Status: In-Network Discharge Source of Patient: [facility] TCM Discharge Report Patient discharged from [facility] on 03.23.25. Admitted for acute on chronic respiratory failure with hypoxia. . . . . Contact made with patient: No - 2nd unsuccessful attempt - end outreach and close encounter. Yuly France April 11, 2025 9:34 AM documented in this encounterC[facility]-2025 NoteHNO ID: [id number] Author: NICOLAS GREER APRN.GATE ATTENDANT Service: ? Author Type: Nurse Specialist Type: [...] stent placement 03/10. Patient was transferred from [facility]. There she was found to have acute pancreatitis. She had a stent placed in the body of the pancreas however on CT scan at the other hospital she had new peripancreatic inflammation. She was also experiencing acute hypoxic respiratory failure and was emergently intubated and transferred to [facility] ICU. 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 Pancreatic Stent Placement: - Stent placed by Dr. Garrido at [facility]. - Persistent abdominal pain radiating to the [...] following stent placement led to hospitalization at [facility], then transferred to [facility] due to fluid overload and septic shock. - Required mechanical ventilation; diagnosed with bilateral pneumonia. - Follow-up with nAi Coto, pulmonology, today. She noted mild wheezing [...] 38.3 37.0 O2 Thera (more content not included)...[facility]07-14-2025 History of Present illness Narrative* Nicolas Greer, UNA.GATE ATTENDANT - 04/10/2025 1:55 PM EDT Subjective Patient ID: Gracie is a 59 [...] with chronic hypoxic respiratory failure on 5 Lat baseline, chronic pancreatitis status post ERCP with stent placement 03/10. Patient was transferred from [facility]. There she was found to have acute pancreatitis. She had a stent placed in the body of the pancreas however on CT scan at the other hospital she had new peripancreatic inflammation. She was also experiencing acute hypoxic respiratory failure and was emergently intubated and transferred to [facility] ICU. She required vasopressor support due to septic shock and was noted to havebilateral pneumonia. She was extubated and transferred to [...] with instructions to follow-up with her PCP, makeup sales advisor. Pancreatic Stent Placement: - Stent placed by Dr. Garrido at [facility]. - Persistent abdominal pain radiating to the [...] following stent placement led to hospitalization at [facility], then transferred to [facility] due to fluid overload and septic shock. [...] Negative Ketones, Urine Negative 1+ ! Specific Brockwell, Ur 1.005 - 1.030 1.026 Hemoglobin/Blood,Ur Negative [...] pneumonia; required mechanical ventilation. - Follow-up with makeup sales advisor Dr. Ani Post today; noted mild wheezing [...] duct stent placement by Dr. Garrido at [facility]. - Persistent abdominal pain, described as severe and radiating to the back; no significant improvement since hospital discharge on the . - Currently managing pain with extra strength Tylenol, providing partial relief. - Prescribed Tramadol for breakthrough pain; instructed to take at bedtime and as needed during theday. Can be taken concurrently with Tylenol if necessary. - Follow-up appointment with Dr. Garirdo scheduled for April 17. 6. Norovirus (A08.11) - Recent norovirus infection; symptoms have improved. - Stools are returning to baseline consistency; occasional loose stools attributed to Gabapentin and dietary factors. - No current nausea or vomiting; has Zofran available if needed. - Advised on strict hand hygiene and environmental cleaning to prevent transmission. Nicolas Greer APRN.GATE ATTENDANT Medical Decision Making: Problems: Moderate: Acute illness with systemic symptoms Data: Unique source(s) for external note(s) reviewed: 1 Unique test result(s) reviewed: 3+ Risk: Moderate: Drug management Medical Decision Making Level: 4 - Moderate documented in this encounterC[facility] Clinic [facility]07-14-2025 Telephone encounter Note * Telephone Encounter - Yuly France - 04/10/2025 9:35 AM EDT Transitional Care Management (TCM) [facility] Provider Action / FYI: na SUMMARY: Outreach type: INITIAL OUTREACH Discharge Network Status: In-Network Discharge Source of Patient: [facility] TCM Discharge Report Patient discharged from [facility] on 03.23.25. Admitted for acute on chronic respiratory failure with hypoxia. . . . Contact made with patient: No - next outreach attempt will be on next business day. Yuly France April 10, 2025 9:37 AM [facility]07-14-2025 Miscellaneous Notes* Telephone Encounter - Yuly France - 04/10/2025 9:35 AM EDT Transitional Care Management (TCM) [facility] Provider Action / FYI: na SUMMARY: Outreach type: INITIAL OUTREACH Discharge Network Status: In-Network Discharge Source of Patient: [facility] TCM Discharge Report Patient discharged from [facility] on 03.23.25. Admitted for acute on chronic respiratory failure with hypoxia. . . . Contact made with patient: No - next outreach attempt will be on next business day. Yuly France April 10, 2025 9:37 AM documented in this encounterCleveland [facility]-2025 Telephone encounter Note * Telephone Encounter - Juan Borjas MA - 04/04/2025 4:31 PM EDT Patient r/s to 04/10/25 with TB. Juan Borjas MA [facility]07-08-2025 Miscellaneous Notes* Telephone Encounter - Juan Borjas MA - 04/04/2025 4:31 PM EDT Patient r/s to 04/10/25 with TB. Juan Borjas MA * Telephone Encounter - Juan Borjas MA - 04/04/2025 1:19 PM EDT Patient has ER F/U scheduled this afternoon at 3:40 PM with PCP. PCP will be out of the office at time of appointment & requests patient to be r/s to a later date or with Soila. Unable to reach patient. Left VM to return call to office. Please assist patient with r/s. Juan Borjas MA documented in this encounterCleveland Clinic [facility]07-[facility]-2025 Telephone encounter Note * Telephone Encounter - Rosy Blancas - 04/04/2025 3:12 PM EDT Transitional Care Management (TCM) [facility] Provider Action / FYI: NA SUMMARY: Outreach type: INITIAL OUTREACH Discharge Network Status: In-Network Discharge [facility] Patient discharged from [facility] on 03.23.25. Admitted for acute on chronic respiratory failure with hypoxia. . . Contact made with patient: No, for Follow-up - end outreach and close encounter. Rosy Blancas April 04, 2025 3:15 PM [facility]07-08-2025 Miscellaneous Notes* Telephone Encounter - Rosy Blancas - 04/04/2025 3:12 PM EDT Transitional Care Management (TCM) [facility] Provider Action / FYI: NA SUMMARY: Outreach type: INITIAL OUTREACH Discharge Network Status: In-Network Discharge Source of Patient: [facility] TCM Discharge Report Patient discharged from [facility] on 03.23.25. Admitted for acute on chronic respiratory failure with hypoxia. . . Contact made with patient: No, for Follow-up - end outreach and close encounter. Rosy Blancas April 04, 2025 3:15 PM documented in this encounterCleveland Clinic [facility]-2025 Telephone encounter Note * Telephone Encounter - Nellie Duke - 04/04/2025 2:25 PM EDT Patient unaware that her appt with Milly today was cancelled and she is looking to reschedule, please advise. [facility]07-08-2025 Miscellaneous Notes* Telephone Encounter - Nellie Duke - 04/04/2025 2:25 PM EDT Patient unaware that her appt with Milly today was cancelled and she is looking to reschedule, please advise. documented in this encounterC[facility] Clinic [facility]-08-2025 Telephone encounter Note * Telephone Encounter - Juan Borjas MA - 04/04/2025 1:19 PM EDT Patient has ER F/U scheduled this afternoon at 3:40 PM with PCP. PCP will be out of the office at time of appointment & requests patient to be r/s to a later date or with Soila. Unable to reach patient. Left VM to return call to office. Please assist patient with r/s. Juan Borjas MA [facility]07-08-2025 Telephone encounter Note* Telephone Encounter - Yuly France - 04/04/2025 9:45 AM EDT Transitional Care Management (TCM) [facility] Provider Action / FYI: na SUMMARY: Outreach type: INITIAL OUTREACH Discharge Network Status: In-Network Discharge Source of Patient: [facility] TCM Discharge Report Patient discharged from [facility] on 03.23.25. Admitted for acute on chronic respiratory failure with hypoxia. . Contact made with patient: No - 2nd unsuccessful attempt - end outreach and close encounter. Yuly France April 04, 2025 9:47 AM [facility]07-08-2025 Miscellaneous Notes* Telephone Encounter - Yuly France - 04/04/2025 9:45 AM EDT Trans[facility]TCM) [facility] Provider Action / FYI: na SUMMARY: Outreach type: INITIAL OUTREACH Discharge Network Status: In-Network Discharge Source of Patient: [facility] TCM Discharge Report Patient discharged from [facility] on 03.23.25. Admitted for acute on chronic respiratory failure with hypoxia. . Contact made with patient: No - 2nd unsuccessful attempt - end outreach and close encounter. Yuly France April 04, 2025 9:47 AM documented in this encounterCleveland Clinic [facility]07-02-2025 Telephone encounter Note * Telephone Encounter - Juan Bloom LPN - 03/29/2025 3:51 PM EDT VM left on listed number to discuss symptoms. Juan Bloom LPN [facility] Work Phone: 1(921) 365-383007-02-2025 Miscellaneous Notes* Telephone Encounter - Juan Bloom LPN - 03/29/2025 3:51 PM EDT VM left on listed number to discuss symptoms. Juan Bloom LPN * Telephone Encounter - Dayana Bone - 03/29/2025 1:49 PM EDT Patient called the office with concerns about cafe server diarrhea. Patient is not sure if it is nte medication gabapetion or a virus. Patient would like a call back. Please review and advise. Dayana documented in this encounterCleveland Clinic [facility]07-02-2025 Telephone encounter Note * Telephone Encounter - Dayana Bone - 03/29/2025 1:49 PM EDT Patient called the office with concerns about cafe server diarrhea. Patient is not sure if it is nte medication gabapetion or a virus. Patient would like a call back. Please review and advise. Dayana [facility]07-01-2025 Telephone encounter Note* Telephone Encounter - Herman Nevarez RN - 03/28/2025 1:02 PM EDT Transitional Care Management (TCM) [facility] Provider Action / FYI: N/A SUMMARY: Outreach type: INITIAL OUTREACH Discharge Network Status: In-Network Discharge Source of Patient: [facility] TCM Discharge Report Patient discharged from [facility] on 03/23/25. Admitted for acute on chronic respiratory failure with hypoxia. Contact made with patient: No - next outreach attempt will be on next . Herman Nevarez RN March 28, 2025 1:04 PM [facility]07-01-2025 Miscellaneous Notes* Telephone Encounter - Herman Nevarez RN - 03/28/2025 1:02 PM EDT Transitional Care Management (TCM) [facility] Provider Action / FYI: N/A SUMMARY: Outreach type: INITIAL OUTREACH Discharge Network Status: In-Network Discharge [facility] Discharge Report Patient discharged from [facility] on 03/23/25. Admitted for acute on chronic respiratory failure with hypoxia. Contact made with patient: No - next outreach attempt will be on next . Herman Nevarez RN March 28, 2025 1:04 PM documented in this encounterCleveland Clinic [facility]06-26-2025 NoteHNO ID: [id number] Author: KERRI AARON RN Service: Nursing Author Type: Registered Nurse Type: Progress Notes Filed: 03/23/2025 19:49 Note Text: Patient has been discharged from the unit. IV removed with tip intact. Telemetry removed, cleaned and returned. Discharge papers and instructions given to patient. Oxygen tank provided to patient upon discharge.[facility] 03-23-2025 NoteHNO ID: [id number] Author: INNA SEBASTIAN RN Service: Care Management Author Type: Registered Nurse Type: Care Mgt Progress Note Filed: 03/23/2025 15:06 Note Text: CARE MANAGEMENT DISCHARGE NOTE SERVICE DATE: March 23, 2025 SERVICE TIME: 3:03 PM Admission Date: 03/15/2025 LOS: 8 days Discharge Arrangement Discharge Arrangement: Home with Self Care Services Arranged DME Provider Name: gianna Caregiver Assessment Caregiver is ready, willing and able to meet the patient's needs as recommended by the inter-professional team: No Caregiver needed Transportation Arrangements Transportation Arrangements: Uber/Lyft (through [employer]) Handoff Communication: Handoff to: Secretary Secretary Name/Phone: misbah elkins Additional Information: N/A Discharge Information Row Name Admission (Current) from 03/15/2025 in [facility] Durable Medical Equipment Agency [employer] Equipment Needed walker delivered to room prior [...] other family does not have a car. CM provided patient caresource transport number to call for transport home. Cm also called [employer] and [employer] will bring a tank to patient today for transport home. Walker delivered to room per mercer. Patient declines need for home care. Exercises provided per therapy. Of note, patient states there is carbon monoxide possible leak in the home as patient alarm was going off. Fire department and gas company visiting the home at 3pm to investigate. Fire department will need to get o2 concentrator out of the home if home truly has carbon monoxide leak. Patient can stay with granddaughter if need be. Plan home. CM following for transition of care. SIGNATURE: Inna Sebastian RN PATIENT NAME: Gracie Banuelos DATE: March 23, 2025 TIME: 3:02 [facility]06-26-2025 NoteHNO ID: [id number] Author: AGUSTINA MURRAY CPhT Service: ? Author Type: Image Editor Type: Plan of Care Filed: 03/23/2025 14:12 Note Text: PHARMACY BEDSIDE DELIVERY SERVICE Patient Name: Gracie Banuelos The marked outpatient medications were Filled at: [facility] and delivered to the patient's bedside to [...] predniSONE 20 mg tablet Commonly known as: DAVIN Murray [facility] PAGER: kaur March 23, 2025 2:03 [facility]06-26-2025 NoteHNO ID: [id number] Author: INNA SEBASTIAN RN Service: Care Management [...] therapy on dc. Patient is interested in BACK TENDER PULP DRIER, plans to go home with sister and sister can assist in all care. Maribel called insurance about BACK TENDER PULP DRIER and CM also provided BACK TENDER PULP DRIER information provided 03/21. Patient requesting walker for home going. FOC provided as gianna. Order placed and gianna notified of need. Plan home, CM monitoring for need for increase in o2 at home. [place] needs notified on day of dc to deliver walker. Order placed. CM will follow. SIGNATURE: Inna Sebastian RN PATIENT NAME: Gracie Banuelos DATE: March 23, 2025 TIME: 8:53 [facility]06-25-2025 NoteHNO ID: [id number] Author: GURJIT RAYO MD Service: Hospital Medicine [...] 1,200 mg ORAL q 12 H Ipratropium Goree 1 spray nasal spray (ATROVENT) 1 spray [...] stent placement 03/10. Patient was transferred from [facility]. There she was found to have acute pancreatitis. She had a stent placed in the body of the pancreas however on CT scan at the other hospital she had new peripancreatic inflammation. She was alsoexperiencing acute hypoxic respiratory failure and was emergently intubated and transferred to [facility] ICU. She required vasopressor support due to [...] aeration - Pulm following (more content not included)...[facility]06-25-2025 NoteHNO ID: [id number] Author: INNA SEBASTIAN RN Service: Care Management [...] therapy on dc. Patient is interested in BACK TENDER PULP DRIER, plans to go home with sister and sister can assist in all care. Paient instructed to call insurance about BACK TENDER PULP DRIER and BACK TENDER PULP DRIER information provided this date. Patient requesting walker for home going. FOC provided as gianna. Order placed and gianna notified of need. Patient will also call [facility] to bring tank to her for discharge and see how high her home concentrator goes (if it goes to 5L or 10L). Plan home, CM monitoring for need for increase in o2 at home. Gianna needs notified on day of dc to deliver walker. Order placed. CM will follow. SIGNATURE: Inna Sebastian RN PATIENT NAME: Gracie Banuelos DATE: March 22, 2025 TIME: 9:46 [facility]06-24-2025 NoteHNO ID: [id number] Author: INNA SEBASTIAN RN Service: Care Management Author Type: Registered Nurse Type: Care Mgt Progress Note Filed: 03/21/2025 11:09 Note Text: CARE MANAGEMENT PROGRESS NOTE SERVICE DATE: 03/21/2025 SERVICE TIME: 11:06 AM LOS: 6 days [place] of Choice Given: Yes Level of Care [...] therapy on dc. Patient is interested in BACK TENDER PULP DRIER, plans to go home with sister and sister can assist in all care. Paient instructed to call insurance about BACK TENDER PULP DRIER and BACK TENDER PULP DRIER information provided this date. Patient requesting walker for home going. FOC provided as gianna. Order placed and gianna notified of need. Patient will also call [employer] to bring tank to her for discharge and see how high her home concentrator goes (if it goes to 5L or 10L). Plan home, CM monitoring for need for increase in o2 at home. [place] needs notified on day of dc to deliver walker. Order placed. CM will follow. SIGNATURE: Inna Sebastian RN PATIENT NAME: Gracie Banuelos DATE: March 21, 2025 TIME: 11:06 [facility]06-24-2025 Telephone encounter Note* Telephone Encounter - Holly Herrera - 03/21/2025 8:56 AM EDT Prescription Refill Information The patient [...] Holly Jensen March 21, 2025 8:57 AM [facility]06-24-2025 Miscellaneous Notes* Telephone Encounter - Holly Herrera - 03/21/2025 8:56 AM EDT Prescription Refill Information The patient [...] Holly Jensen March 21, 2025 8:57 AM documented in this encounterCleveland Clinic [facility]06-[facility]-2025 NoteHNO ID: [id number] Author: GURJIT RAYO MD Service: Hospital Medicine [...] stent placement 03/10. Patient was transferred from [facility]. There she was found to have acute pancreatitis. She had a stent placed in the body of the pancreas however on CT scan at the other hospital she had new peripancreatic inflammation. She was alsoexperiencing acute hypoxic respiratory failure and was emergently intubated and transferred to [facility] ICU. She required vasopressor support due to [...] DC vancomycin - Spu (more content not included)...[facility]06-23-2025 NoteHNO ID: [id number] Author: GURJIT RAYO MD Service: Hospital Medicine [...] stent placement 03/10. Patient was transferred from [facility]. There she was found to have acute pancreatitis. She had a stent placed in the body of the pancreas however on CT scan at the other hospital she had new peripancreatic inflammation. She was alsoexperiencing acute hypoxic respiratory failure and was emergently intubated and transferred to [facility] ICU. She required vasopressor support due to septic shock and was noted to have bilateral pneumonia. She was extubated and transferred to the floors. She remained hemodynamically stable off pressors but had increasing oxygen requirements. Acute on chronic hypoxic respiratory failure (more content not included)...[facility]06-23-2025 NoteHNO ID: [id number] Author: INNA SEBASTIAN RN Service: Care Management [...] Banuelos DATE: March 20, 2025 TIME: 8:36 AM[facility]06-[facility]25 NoteHNO ID: [id number] Author: NGUYEN PALACIOS DO Service: Hospital Medicine Author Type: Physician Type: Plan of Care Filed: 03/28/2025 17:20 Note Text: There was a THREADER OPERATOR called on this patient due to elevated [...] to R/O PE. Echo does not show CHF.[facility]06-22-2025 NoteHNO ID: [id number] Author: NGUYEN PALACIOS DO Service: Hospital Medicine [...] 5 L NC. Patient was transferred from [facility]. There she was found to have acute pancreatitis. She had a stent placed in the body of the pancrease however on CT scan at the other hospital she had new peripancreatic inflammation. She was also experiencing acute hypoxic respiratory failure and was emergently intubated and transferred to [facility]. Patient was admitted [facility] ICU. She was on levophed and vasopressin. [...] and Airways Line Duration Peripheral 03/16/25 0000 [facility] Short Right Forearm 18 Gauge 3 days Peripheral 03/16/25 0000 External Facility Short Left Antecubital 20 Gauge 3 days Peripheral 03/16/25 External Facility Short Right Antecubital 20 Gauge 3 days Reviewed lines and needs to be continued: REASONS: Difficulty in obtaining/maintaining access DATA: Diagnostic tests reviewed for today's visit: Most recent labs Most recent imaging Assessment/Virgen (more content not included)...[facility]06-22-2025 Note HNO ID: [id number] Author: AGUSTINA PACHECO, RN Service: Care Management [...] was completed 03/10. She initially presented to [facility] but was a transfer to [facility] following intubation. She is being treated for respiratory failure/PNA/chronic pancreatitis/sepsis.She is being treated with aerosols, IV antibiotics, and vasopressor support. At her baseline she is independent in her ADL's with the exception of transport which her family provides. Her DME includes a bipap, shower chair, and 5L [place] [facility]. She is established with her PCP, uses [...] Banuelos DATE: March 19, 2025 TIME: 10:08 [facility]06-21-2025 NoteHNO ID: [id number] Author: NGUYEN PALACIOS DO Service: Hospital Medicine Author Type: Physician Type: Plan of Care Filed: 03/18/2025 13:58 Note Text: This is a 59 year old female with past medical history of COPD, Chronic hypoxic respiratory failure on 5 L NC. Patient was transferred from [facility]. There she was found to have acute pancreatitis. She had a stent placed in the body of the pancrease however on CT scan at the other hospital she had new peripancreatic inflammation. She was also experiencing acute hypoxic respiratory failure and was emergently intubated and transferred to [facility]. Patient was admitted [facility] ICU. She was on levophed and vasopressin. [...] check iron studies. Keep hemoglobin greater than 7[facility]06[facility] NoteHNO ID: [id number] Author: GERSON MCCALL MD Service: Critical Care [...] 154/72 Pulse: 90 88 98 103 Resp: 24 24 30 28 Temp: 36.7 ?C (98.1 ?F) TempSrc: Oral [...] (GEODON) 40 mg caps (more content not included)...[facility]06-20-2025 NoteHNO ID: [id number] Author: GERSON MCCALL MD Service: Critical Care [...] MonitorHome blood pressure monitorDisp (more content not included)...[facility]06-19-2025 NoteHNO ID: [id number] Author: ANNETTA HUYNH RN Service: Care Management Author Type: Registered Nurse Type: Care Mgt Initial Assessment Filed: 03/17/2025 09:01 Note Text: CARE MANAGEMENT: ASSESSMENT AND DISCHARGE PLAN SERVICE DATE: March 16, 2025 SERVICE TIME: 1400 PCP: Misbah Elkins MD Primary Contact: Extended Emergency Contact Information Primary Emergency Contact: VinDomonique Mobile Relation: Sister Secondary Emergency Contact: Kasie Hernandez Relation: Daughter Admission Status: Inpatient Insurance Provider: [facility] MEDICAID Discharge Planning requested by: Per Department Practice Potential Transition Plans Home, Home Care, Home OT/PT, [facility] Facility/Intermediate Care Facility, To Be Determined Advance Directives Current Advance Directive: Health Care Power of [employer] Superintendent In Chart: No Afternoon Nanny Attempted to Assist with AD Completion: No [...] Be able to go home, General wellness [place] Choice Explained: [place] Given: Yes Level of Care Discussed: Home Care, [facility] Facility Are you interested in bedside delivery [...] were you homeless or living in a intermediate (including now)?: No Utilities In the past 12 months has the electric, gas, oil, or water [employer] threatened to shut off services in your home?: No [place] Given: Yes Level of Care Discussed: Home Care, [facility] Financial Disclosure Provided: Yes Provider List: Home Care, [facility] Provider list within the patient's requested geographic area shared with the patient/family: Yes within: 20 miles of [facility] code: 31091 Quality and resource use metrics shared with the patient that are relevant to the patient's goals of care and treatment preferences:: Yes Late entry 03/17 0850. Chart reviewed. Patient came to the hospital from home with two of her adult children for epigastric pain. Her pain reportedly started following a pancreatic stent placement which was completed 03/10. She initially presented to [facility] but was a transfer to [facility] following intubation. She is being treated for respiratory failure/PNA/chronic pancreatitis/sepsis.She is being treated with aerosols, IV antibiotics, and vasopressor support.As she is vented/sedated plan was discussed with her daughter Caitie Ferro. At her baseline she is independent in her ADL's with the exception of transport which her family provides. Her DME includes a bipap, shower chair, and 5L NC reportedly from [facility]. Her home oxygen orders will need verified. She is established with her PCP, uses no community resources, and can afford her medications. At this time plan is TBD pending clinical course. I provided SNF/HHC lists for her family to review. Patient has a HCPOA on file which appoints her daughter Caitie hernandez. Her contact number is [phone]. The first alternate is her sister Domonique Banuelos- [phone]. SIGNATURE: Annetta Huynh RN PATIENT NAME: Gracie Banuelos DATE: March 16, 2025 TIME: 2:52 [facility] NoteHNO ID: [id number] Author: TRENTON HECK APRN.IGOR Service: Critical Care Author Type: Nurse Practitioner Type: Procedures Filed: 03/16/2025 14:10 Note Text: BEDSIDE PROCEDURE NOTE CENTRAL LINE INSERTION Date/Start Time: 03/16/2025 1:30 PM Date/Stop Time: 03/16/2025 1:50 PM Performed by: Trenton Heck APRN.BOX TOE MAKER Authorized by: Trenton Heck APRN.BOX TOE MAKER Where was Patient When this Procedure was Performed: Bedside/Unscheduled Procedure Room Informed Consent Consent Obtained: Verbal (Sister Domonique) [place] Protocol A moment to CARE was completed. [...] was applied following the usual aseptic technique. [facility] Central Line Insertion Checklist, attached to the [...] nurse for hospitalized patients). SIGNATURE: Trenton Heck APRN.IGOR PATIENT NAME: Pako Clarke DATE: March 16, 2025 TIME: 2:07 [facility] Telephone encounter Note* Telephone Encounter - Eva Martines RN - 03/16/2025 1:20 PM EDT Patient's daughter calls and wanted provider aware that patient is currently at [facility] on aVentilator. Daughter apologizes for forgetting to cancel appointment yesterday. Daughter states that mother was being put on a ventilator at that time. Eva Martines RN [facility]06-19-2025 Miscellaneous Notes* Telephone Encounter - Eva Martines RN - 03/16/2025 1:20 PM EDT Patient's daughter calls and wanted provider aware that patient is currently at [facility] on aVentilator. Daughter apologizes for forgetting to cancel appointment yesterday. Daughter states that mother was being put on a ventilator at that time. Eva Martines RN documented in this encounterC[facility]06-[facility]-2025 NoteHNO ID: [id number] Author: GERSON MCCALL MD Service: Critical Care [...] muscle spasm.Disp: 15 table (more content not included)...[facility]06-19-2025 [facility]06-19-2025 NoteHNO ID: [id number] Author: MAKSIM ANDERSON APRN.IGOR Service: ? Author Type: Nurse Practitioner Type: Progress Notes Filed: 03/16/2025 07:05 Note Text: CRITICAL CARE TRANSPORT MEDICAL CONTROL CONSULT NOTE Patient Name: Gracie Banuelos Service Date: March 16, 2025 Referring Facility: [facility] Accepting Facility: [facility] REASON FOR TRANSPORT: Higher level intensive care services not available at the referring facility REASON FOR CONSULT: Hypotension and Sedation CCT MEDICAL CONTROL CONSULT SUMMARY: History, physical exam findings, and available background patient information from CCT Transport Nurse were reviewed at the time of consult. Pertinent additional information was reviewed as follows: [facility] transport request log In brief, Gracie Banuelos is a 59 year old female with a history, known at time of consult, significant for Smoking and COPD (5L N/C at home) who was admitted to [facility] for evaluation of Acute on Chronic Pancreatitis [...] HCO3 26.8. Patient is being transferred to [facility] for higher level intensive care services not available at the referring facility. En route, patient continued to be hypotensive with MAP <65. Patient was awake on the ventilator with RASS 0 to +1. PLAN: Multiple factors considered including: patient history/condition/trajectory/stability, referring and receiving destinations, duration of transport [...] confirmed and read back via telephone with CCT Transport membership solicitor, Dung Coe, Notary Public SIGNATURE: Maksim Anderson APRN.CNP Acute Care Nurse Practitioner Critical Care [facility] History of Present illness Narrative* Maksim Anderson APRN.CNP - 03/16/2025 5:45 AM EDT Images from the original note were not included. CRITICAL CARE TRANSPORT MEDICAL CONTROL CONSULT NOTE Patient Name: Gracie Banuelos Service Date: March 16, 2025 Referring Facility: [facility] Accepting Facility: [facility] REASON FOR TRANSPORT: Higher level intensive care [...] N/C at home) who was admitted to [facility] for evaluation of Acute on Chronic Pancreatitis [...] HCO3 26.8. Patient is being transferred to [facility] for higher level intensive care services not available at the referring facility. En route, patient continued to be hypotensive with MAP <65. Patient was awake on the ventilator with RASS 0 to +1. PLAN: Multiple factors considered including: patient history/condition/trajectory/stability, referring and receiving destinations, duration of transport time, medications and therapies available during bhardwaj sport, patient safety, as well as crew capabilities. Orders given for: Levophed 8mg/250ml IV at 15mcg/min, titrate to MAP 65-75 Vasopressin 20units/100ml IV at 0.04units/min Precedex 400mcg/100ml IV at 0.7mcg/kg/hr, titrate to RASS 0 to -2 Fentanyl 25mcg IVP X3 Plan of care and orders confirmed and read back via telephone with CCT Transport membership solicitor, Dung Coe, Notary Public SIGNATURE: Maksim Anderson APRN.BOX TOE MAKER Acute Care Nurse Practitioner Critical Care Transport documented in this encounterC[facility]06-19-2025 CwoiCDEL-IJN-1 (AGENT OF COVID-19) RNA: Not detected INFLUENZA A RNA: Not detected INFLUENZA B RNA: Not detected RESPIRATORY SYNCYTIAL VIRUS (RSV) RNA: Not detectedNew Lincoln HospitalComment on above:Performed By: #### [id number] #### [facility] CLIA [id number] [address] [place] [address] [place] [id number] Respiratory pathogens DNA and RNA 12b panel KANDY+probe (Unsp spec)SARS-COV-2 (AGENT OF COVID-19) RNA: Not detected INFLUENZA [...] DNA: Not detected BORDETELLA PARAPERTUSSIS DNA: Not detectedNew Lincoln HospitalComment on above:Performed By: #### [id number] #### [facility] CLIA [id number] [address] [id number] [place] [id number] Progress note Author Sudhir Izquierdo [facility] Note Date/Time March 15, 2025 8:39 pm [facility] Medical Records Department [address] [place] [address] Progress Note 03/15/252036 MR#: [id number] Acct: [id number] Name: GRACIE BANUELOS Rep #:[id number] : 1965 59 From: Sudhir pace MD [...] Cosigner Signature (if applicable): CC: ~ Signed [facility] Work Phone: 1(771) 579-362206-18-2025 Progress note Author Sudhir Izquierdo [facility] Note Date/Time March 15, 2025 7:20 pm [facility] Medical Records Department [address] [facility] [place] [address] Progress Note 03/15/251917 MR#: [id number] Acct: [id number] Name: BANUELOSGRACIE Chase Rep #:[id number] : 1965 59 From: Sudhir pace MD [...] Cosigner Signature (if applicable): CC: ~ Signed [facility] Work Phone: 1(354) 138-501106-18-2025 Progress note Author Sudhirsalvatore Izquierdo [facility] Note Date/Time March 15, 2025 7:17 pm [facility] Medical Records Department [address] [place] [address] Progress Note 03/15/251913 MR#: [id number] Acct: [id number] Name: GRACIE BANUELOS Rep #:[id number] : 1965 59 From: Sudhir pace MD PCP: Dr. Misbah Elkins MD Status:ADM I N Location: ICU CVICU20 3-1 Progress Note Intubation Indication: Acute hypoxic [...] less than 1 cc. Procedures Hospitalists Procedures: 41168 Insert Emergency Airway 03/15/251916 <Electronically signed by Sudhir Izquierdo MD> Sudhir Izquierdo MD Cosigner Signature (if applicable): CC: ~ Signed [facility] Work Phone: 1(186) 567-784106-18-2025 Progress note Author Sudhirsalvatore Izquierdo [facility] Note Date/Time March 15, 2025 7:13 pm [facility] Medical Records Department [address] [place] [address] Progress Note 03/15/251911 MR#: [id number] Acct: [id number] Name: GRACIE BANUELOS Rep #:[id number] : 1965 59 From: Sudhir pace MD PCP: Dr. Misbah Elkins MD Status:ADM I N Location: ICU CVICU 3-1 Progress Note Throughout the day her [...] intubation is emergent. Will also call the [facility] transfer line to change designation to critical care patient to see if this expedites transfer. 03/15/251912 <Electronically signed by Sudhir Izquierdo MD> Sudhir Izquierdo MD Cosigner Signature (if applicable): CC: ~ Signed [facility] Work Phone: 1(605) 958-916006-18-2025 Progress note Author Sudhir Izquierdo [facility] Note Date/Time March 15, 2025 7:12 pm [facility] Medical Records Department [address] [place] [address] Progress Note - Hospitalist 03/15/251907 MR#: [id number] Acct: [id number] Name: GRACIE BANUELOS Rep #:[id number] : 1965 59 From: Sudhir pace MD PCP: Dr. Misbah Elkins MD Status:ADM I N Location: ICU [place] [address] 3-1 Subjective Subjective Seems to have some [...] 83.6 H, Lymph % (Auto) 5.8 L, [place] % (Auto) 6.1, Eos % (Auto) 0.3, [...] lower lobes. Enlarged cardiac silhouette. [facility] 03/15/25 17:00 IMPRESSION: As above. Reading Location: [id number] Physical Exam Narrative General: Alert, Oriented x3, [...] show she is pending transfer back to [facility] ? Remain n.p.o. ? Will hold [...] DVT: Lovenox Charges/Coding Visit Charges Inpatient E&M: 10576 Subs Hosp L3 03/15/251911 <Electronically signed by Sudhir Izquierdo MD> Cosigner Signature (if applicable): CC: ~ Signed [facility] Work Phone: 1(920) 199-490206-18-2025 Radiology Diagnostic study [facility]06-18-2025 Consult note Author Gonzalo Sebastian [facility] Note Date/Time March 15, 2025 11:5 1am [facility] Medical Records Department [address] [place] [address] Consultation - Paint Stock Clerk 03/15/25819 MR#: [id number] Acct: [id number] Name: GRACIE BANUELOS Rep #:[id number] : 1965 59 From: Gonzalo Sebastian DO [...] respiratory status worsens. 6. [facility], pending bed availability. IMPRESSIONS: 1. [...] patient was recently [facility] Thursday from [facility] following pancreatic stent placement. She presented again with worsening abdominal pain and elevatedlipase and was subsequently placed on supplemental IV fluids, with transfer pending to [facility] [place]. 3. History of hypertension/hyperlipidemia/anxiety/depression/GERD/hypothyroidism/tobacco dependency Complicates care, management, recovery and prognosis. Continue home medicationsas indicated along with supportive care as noted above. This note was generated with [employer] software. It may contain incorrectwords, spelling, and [...] prior alcohol use with recent hospitalization at [facility] last week for pancreatic stent placement, [...] was made to proceed with transfer to [facility] for further management. Although the patient was [...] vascular congestion. BNP is elevated at 4257. [facility] Medical History (Reviewed 02/08/25 @ 13:18 by Ani Eduardo POLYSTYRENE MOLDING MACHINE TENDER, POLYSTYRENE MOLDING MACHINE TENDER-C) Stenosis of left subclavian artery Pulmonary nodule [...] Allergy Other Verified 02/26/25 13:57 hydrocodone (From [place]) AdvReac Itching Verified 02/26/25 13:57 Family History [...] 83.6 H, Lymph % (Auto) 5.8 L, [place] % (Auto) 6.1, Eos % (Auto) 0.3, [...] lower lobes. Enlarged cardiac silhouette. Reading Location: [place] [address] Charges/Coding Visit Charges Inpatient E&M: 67585 Init Hosp L3 03/15/25 1151 <Electronically signed by Gonzalo Sebastian DO> Cosigner Signature (if applicable): CC: Dr. Misbah Elkins MD~ Signed [facility] Work Phone: 1(450) 733-788906-18-2025 Radiology Diagnostic study [facility]06-17-2025 Progress note Author Sudhir Izquierdo [facility] Note Date/Time March 14, 2025 10:3 6am [facility] Medical Records Department [address] [place] [address] Progress Note - Hospitalist 03/14/25 1025 MR#: [id number] Acct: [id number] Name: GRACIE BANUELOS Rep #:[id number] : 1965 59 From: Sudhir pace MD PCP: Dr. Misbah Elkins MD Status:ADM I N Location: [place] [address] Subjective Subjective No issues overnight, leukocytosis is [...] (Auto) 83.5 H, Lymph% (Auto) 6.3 L, [place] % (Auto) 8.1, Eos % (Auto) 0.5, [...] Clarity Clear, Urine pH 7.0, Ur Specific [place] 1.005, Urine Protein 30 H, Urine Glucose [...] (Auto) 81.7 H, Lymph% (Auto) 9.0 L, [place] % (Auto) 6.4, Eos % (Auto) 1.2, [...] at the time of dictation. Reading Location: [facility] Chest X-Ray 03/13/25 12:40 IMPRESSION: No evidence of acute cardiopulmonary pathology. Reading Location: [facility] Physical Exam Narrative General: Alert, Oriented [...] show she is pending transfer back to [facility] ? Remain n.p.o. ? Continue with [...] DVT: Lovenox Charges/Coding Visit Charges Inpatient E&M: 61993 Subs Hosp L2 03/14/25 1036 <Electronically signed by Sudhir Izquierdo MD> Cosigner Signature (if applicable): CC: ~ Signed [facility] Work Phone: 1(142) 691-744306-17-2025 History and physical note Author Pako Fernández [facility] Note Date/Time March 13, 2025 11:2 8pm [facility] Medical Records Department [address] [place] [address] History & Physical Exam 03/13/25 2320 MR#: [id number] Acct: [id number] Name: GRACIE BANUELOS Rep #:[id number] : 1965 59 From: Pako Fernández MD [...] several months. She was recently admitted to [facility] and treated by GI specialist Dr. Portillo. She had a surgery performed for her pancreatitis and a stent was placed this past Thursday. Patient states she has had worsening epigastric abdominal pain since discharge on Thursday. She denies fever, chills, shortness of breath, chest pain, diarrhea constipation or dysuria. Patient has been accepted to [facility] for transferfrom the emergency room, however, a bed is not available this evening and patient will be admitted temporarily in our facility while pending transfer to tertiary care facility to address pancreatic stent and acute pancreatitis. [facility] Medical History (Reviewed 02/08/25 @ 13:18 by Ani Eduardo POLYSTYRENE MOLDING MACHINE TENDER, POLYSTYRENE MOLDING MACHINE TENDER-C) Stenosis of left subclavian artery Pulmonary nodule [...] Allergy Other Verified 02/26/25 13:57 hydrocodone (From [place]) AdvReac Itching Verified 02/26/25 13:57 Family History (Reviewed 02/08/25 @ 13:18 by Ani Eduardo POLYSTYRENE MOLDING MACHINE TENDER, POLYSTYRENE MOLDING MACHINE TENDER-C) Mother Diabetes Hypertension Heart disease High cholesterol [...] (Auto) 83.5 H, Lymph% (Auto) 6.3 L, [place] % (Auto) 8.1, Eos % (Auto) 0.5, [...] Clarity Clear, Urine pH 7.0, Ur Specific [place] 1.005, Urine Protein 30 H, Urine Glucose [...] at the time of dictation. Reading Location: [facility] Chest X-Ray 03/13/25 12:40 IMPRESSION: No evidence of acute cardiopulmonary pathology. Reading Location: [facility] Assessment & Plan Assessment/Plan (1) Smoking greater than 30 pack years: (2) COPD (chronic obstructive pulmonary disease): QUALIFIERS: COPD type: emphysema Emphysema type: centrilobular Qualified Code(s): J43.2 - Centrilobular emphysema (3) Abdominal pain: (4) Chronic pancreatitis: QUALIFIERS: Pancreatitis type: alcohol induced Qualified Code(s):K86.0 - 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 chronic pancreatitis PLAN: Plan 1. Acute on chronic pancreatitis?admit patient temporarily to our facility pending transfer to [facility], make n.p.o., IV normal saline at [...] routinely 4. DVT prophylaxis?low molecular weight heparin 03/13/258 <Electronically signed by Pako Fernández MD> Cosigner Signature (if applicable): CC: Dr. Misbah Elkins MD; Dr. Pako Fernández MD~ Signed [facility] Work Phone: 1(238) 803-157206-17-2025 Discharge summary Author Macario Abi [facility] Note Date/Time March 13, 2025 11:1 5pm [facility] Medical Records Department [address] [place] [address] Emergency Department Summary 03/13/25 MR#: [id number] Acct: [id number] Name: GRACIE BANUELOS Rep #:[id number] : 1965 59 From: Macario mccain DO PCP: Dr. Misbah Elkins MD Status:REG E R Location: ED ADDENDUM by Dr. Rica Doe DO on 03/13/25 at 2315 Care of patient turned over to me awaiting transfer to [facility] for abdominal pain and pancreatitis. Patient had more abdominal discomfort while awaiting transfer and I did give her 4 mg of morphine and 4 mg of Zofran. Patient also walked to the bathroom and back and became hypoxic on her oxygen. She has history of COPD. I did give her a DuoNeb aerosol. [facility] was contacted and they will not [...] states she had a recent admission at [facility] in which she wasseen by a GI [...] intact Psych: Cooperative, appropriate mood and affect [facility] Medical History (Reviewed 02/08/25 @ 13:18 by Ani Eduardo POLYSTYRENE MOLDING MACHINE TENDER, POLYSTYRENE MOLDING MACHINE TENDER-C) Stenosis of left subclavian artery Pulmonary nodule [...] Allergy Other Verified 02/26/25 13:57 hydrocodone (From [place]) AdvReac Itching Verified 02/26/25 13:57 Family History [...] placed on Thursday with Dr. Garrido at [facility]. Differential diagnosis includes but is not [...] CMP unremarkable without significant electrolyte abnormality or HCUY. Patient does have mild ALT elevation at [...] is in agreement. We reached out to [facility], they have no record of the patient. Patient was informed of this and now states she cannot care at [facility]. Reached out to the transfer line at [facility]. I spoke with Dr. Pascual BENÍTEZ who [...] 83.5 H Lymph % (Auto) 6.3 L [place] % (Auto) 8.1 Eos % (Auto) 0.5 [...] Color Urine Clarity Urine pH Ur Specific [place] Urine Protein Urine Glucose (UA) Urine Ketones [...] (Auto) Neut % (Auto) Lymph % (Auto) [place] % (Auto) Eos % (Auto) Baso % [...] Clarity Clear Urine pH 7.0 Ur Specific [place] 1.005 Urine Protein 30 H Urine Glucose [...] evidence of acute cardiopulmonary pathology. Reading Location: [id number] Discharge Plan Triage Chief Complaint: Abd Pain [...] Qty: 360 11RF Primary Care Provider: Misbah Elkins: Misbah Elkins MD [Primary Care Provider] - Print Language: Nepalese What to do if you have Problems For any increased pain, shortness of breath, bleeding, nausea or vomiting, chestpain, or any unexpected problems, contact your Primary Care Provider. Call [facility] ([phone]) or report to the closest Emergency Room. Call 911 if necessary. 03/13/25 1716 <Electronically signed by Macario Alex DO> Cosigner Signature (if applicable): CC: Dr. Misbah Elkins MD ~ Signed [facility] Work Phone: 1(893) 654-250206-16-2025 [facility]06-16-2025 Discharge summary Author Macaroi [facility] Note Date/Time March 13, 2025 11:1 5pm [facility] Medical Records Department [address] [place] [address] Emergency Department Summary 03/13/25 MR#: [id number] Acct: [id number] Name: GRACIE BANUELOS Rep #:[id number] : 1965 59 From: Macario mccain DO PCP: Dr. Misbah Elkins MD Status:REG E R Location: ED ADDENDUM by Dr. Rica Doe DO on 03/13/25 at 2315 Care of patient turned over to dc awaiting transfer to [facility] for abdominal pain and pancreatitis. Patient had more abdominal discomfort while awaiting transfer and I did give her 4 mg of morphine and 4 mg of Zofran. Patient also walked to the bathroom and back and became hypoxic on her oxygen. She has history of COPD. I did give her a DuoNeb aerosol. [facility] was contacted and they will not [...] states she had a recent admission at [facility] in which she wasseen by a GI [...] intact Psych: Cooperative, appropriate mood and affect [facility] History (Reviewed 02/08/25 @ 13:18 by Ani Eduardo POLYSTYRENE MOLDING MACHINE TENDER, POLYSTYRENE MOLDING MACHINE TENDER-C) Stenosis of left subclavian artery Pulmonary nodule [...] Allergy Other Verified 02/26/25 13:57 hydrocodone (From [place]) AdvReac Itching Verified 02/26/25 13:57 Family History [...] placed on Thursday with Dr. Garrido at [facility]. Differential diagnosis includes but is not [...] and now states she cannot care at [facility]. Reached out to the transfer line at [facility]. I spoke with Dr. Pascual BENÍTEZ who [...] 83.5 H Lymph % (Auto) 6.3 L [place] % (Auto) 8.1 Eos % (Auto) 0.5 [...] Color Urine Clarity Urine pH Ur Specific [place] Urine Protein Urine Glucose (UA) Urine Ketones [...] (Auto) Neut % (Auto) Lymph % (Auto) [place] % (Auto) Eos % (Auto) Baso % [...] Clarity Clear Urine pH 7.0 Ur Specific [place] 1.005 Urine Protein 30 H Urine Glucose [...] at the time of dictation. Reading Location: [facility] Chest X-Ray 03/13/25 12:40 IMPRESSION: No evidence of acute cardiopulmonary pathology. Reading Location: [facility] Discharge Plan Triage Chief Complaint: Abd Pain [...] MD [Primary Care Provider] - Print Language: Nepalese What to do if you have Problems For any increased pain, shortness of breath, bleeding, nausea or vomiting, chestpain, or any unexpected problems, contact your Primary Care Provider. Call [facility] ([phone]) or report to the closest Emergency Room. Call 911 if necessary. 03/13/251715 <Electronically signed by Macario Alex DO> Cosigner Signature (if applicable): CC: Dr. Misbah Elkins MD ~ Signed [facility] Work Phone: 1(664) 237-542606-16-2025 Radiology Diagnostic study [facility]06-16-2025 Radiology Diagnostic study [facility] Work Phone: [phone]) 798-131706-16-2025 Telephone encounter Note* Telephone Encounter - Juan [...] to leave a message. Juan Bloom LPN [facility] Work Phone: 1(863) 111-368306-16-2025 Miscellaneous Notes* Telephone Encounter - Juan Bloom [...] - 03/13/2025 9:57 AM EDT Gracie calling #[phone] Patient states she's in a lot of [...] speak to someone first. Thank you Isis Joe documented [facility] Telephone encounter Note * Telephone Encounter - Isis Gil - 03/13/2025 9:57 AM EDT Gracie calling #[phone] Patient states she's in a lot of [...] speak to someone first. Thank you Isis Joe [facility]06-13-2025 Nurse Note* Janis Ac RN - 03/10/2025 5:[address] Chakraborty anesthesia ok d patient to be discharged Three hot packs given to patient for right arm [facility]06-13-2025 Nurse Note* Janis Ac RN - 03/10/2025 [...] patient Gracie and sister Magui spoke to [employer] nurse business manager Reshma Garcia office number given. Pharmacy called, Zelda pharmacist [...] RN In Department: GASTROENTEROLOGY documented in this encounterCleveland [facility]06[facility] Nurse Note* Janis Ac RN - 03/10/2025 4:33 PM EDT Patient states her arm where the infiltration occurred it is burning Patient informed to keep an eye on the infiltrated area so a blister does not form of it does go to the Emergency room [facility]06-13-2025 Nurse Note* Janis Ac RN - 03/10/2025 4:02 PM EDT Right AC IV infiltrated with 100cc IV Propofol large swollen red hard area Hot pack applied Patientcrying stating arm hurts patient Gracie and sister Magui spoke to [employer] nurse business manager Reshma [facility] office number given. Pharmacy called, Zelda pharmacist notified unable to help. Called Drug information line spoke with Milan fallon monitor patient There is no information in regards to amount of time Propofol will take to infuse .Patient is awake alert oriented x3 [facility]06-13-2025 Nurse Note* Janis Ac RN - 03/10/2025 3:[address] Chakraborty anesthesia notified patients blood pressure low 73/52 74/51 Albumin 25 grams given Patient awake alert oriented x3 skin warm and dry [facility]06-13-2025 Nurse Note* Janis Ac RN - 03/10/2025 [...] MATERIAL: Procedure Discharge Instructions REFERRAL (RECOMMENDATION): None [facility]06-13-2025 NoteQ3 Patient Name: Gracie Banuelos Procedure Date: 03/10/2025 1:46 PM Date of : 1965 Admit Type: Outpatient Age: 59 Gender: Female Note Status: Finalized Attending MD: Jane Farrell MD, [id number] Procedure: ERCP Indications: Chronic pancreatitis, For therapy [...] procedure well. Moderate Sedation: GA Findings: A well logging operator mud analysis film of the abdomen was obtained. Multiple [...] remove stent. Procedure Code(s): --- Professional --- 20125, Endoscopic retrograde cholangiopancreatography (ERCP); with placement of endoscopic stent into biliary or pancreatic duct, including pre- and post-dilation and guide wire passage, when performed, including sphincterotomy, when performed, each stent 07629, Endoscopic retrograde cholangiopancreatography (ERCP); with removal of calculi/debris from (more content not included)...[id number] NoteHNO ID: [id number] Author: VANESSA PEREZ APRN.DISTRIBUTION SPECIALIST Service: ? Author Type: Nurse Earth Science Professor Type: Anesthesia Procedure Notes Filed: 03/10/2025 14:41 Note Text: ANESTHESIOLOGY PROCEDURE NOTE Airway General Information Procedure Start Time/Medication Administration: 03/10/2025 2:15 PM Procedure End Time: 03/10/2025 2:15 PM Patient location during procedure: OR Timeout Performed Pre-procedure: timeout performed Consent Obtained: Yes Patient identity confirmed: arm band, care security team lead and patient Staffing DISTRIBUTION SPECIALIST: Vanessa Perez APRN.DISTRIBUTION SPECIALIST Performed by: LISETTE Indications and Patient Condition Indications for airway management: anesthesia and airway protection Preoxygenated: yes anesthesia circuit Patient position: sniffing Method: sleep Difficult Mask: No Final Airway Details Final airway type: endotracheal airway Final Endotracheal Airway: ETT Cuffed: yes Successful intubation technique: video laryngoscopy Devices used: [employer] Endotracheal tube insertion site: oral Blade size: #3 ETT size (mm): 7.0 Measured from: lips Measurement (cm): 21 Placement verified by: capnometry Cormack-Lehane Classification: grade I - full view of glottis Number of attempts at approach: 1 Airway not difficult SIGNATURE: Vanessa Perez APRN.CRNA PATIENT NAME: Gracie Banuelos DATE: March 10, 2025 TIME: 2:40 PM CSN: [id number] NoteQ3 Patient Name: Gracie Banuelos Procedure Date: 03/10/2025 1:46 PM Date of : 1965 Admit Type: Outpatient Age: 59 Gender: Female Note Status: Finalized Attending MD: Jane Farrell MD, [id number] Procedure: ERCP Indications: Chronic pancreatitis, For therapy [...] procedure well. Moderate Sedation: GA Findings: A well logging operator mud analysis film of the abdomen was obtained. Multiple [...] remove stent. Procedure Code(s): --- Professional --- 19184, Endoscopic retrograde cholangiopancreatography (ERCP); with placement of endoscopic stent into biliary or pancreatic duct, including pre- and post-dilation and guide wire passage, when performed, including sphincterotomy, when performed, each stent 90542, Endoscopic retrograde cholangiopancreatography (ERCP); with removal of calculi/debris from biliary/pancreatic duct(s) 90757, Endoscopic catheterization of the pancreatic ductal system, radiological supervision and interpretation Diagnosis Code(s): --- Professional --- K86.89, Other specified diseases of pancreas K86.1, Other chronic pancreatitis R93.2, Abnormal findings on diagnostic imaging of liver and biliary tract CPT copyright 2020 [employer]. All rights reserved. Attending Participation: I personally performed the entire procedure. Scope In: 2:28:14 PM Scope Out: 2:49:25 PM MD Jane Fields MD 03/10/2025 3:19:29 PM This report has been signed electronically by Jane Farrell MD Number of Addenda: 0 Note Initiated On: 03/10/2025 1:46 [facility]06-13-2025 Nurse Note* Adrian Edmond, RN - 03/10/2025 12:30 PM EDT PRE OP LEARNING ASSESSMENT PROCEDURE/SURGERY: GI PROCEDURES: ERCP READINESS TO LEARN COGNITIVE ABILITY: Alert and oriented MOTIVATION TO LEARN: Eager FAMILY SUPPORT: High - Very involved in pt care PATIENT LEARNS BEST BY: Individual Instruction Verbal Instruction FACTORS AFFECTING LEARNING: None PHYSICAL LIMITATIONS AFFECTING LEARNING: None Electronically Signed By: Adrian Edmond RN In Department: GASTROENTEROLOGY [facility]06-10-2025 Telephone encounter Note* Telephone Encounter - Isis Gil - 03/07/2025 2:29 PM EDT Patient called, did not receive email. She stated it had to all be in lower case. I resent email Thank you Isis Joe [facility]06-10-2025 Miscellaneous Notes* Telephone Encounter - Isis Gil [...] MD Department of Gastroenterology- Advanced Endoscopy [address] [address] 03/07/2025 Pt. name: Gracie Banuelos 1965 MEDICAL Procedure This is to certify that Gracie Banuelos this is a letter to confirm that Gracie has a procedure at [facility] on 03/10 with an arrival time of 12pm. This appointment needs to have a responsible adult hearse driver to accompany her for transportation to and after her procedure. Sincerely, Jane Farrell MD * Telephone Encounter - Isis Gil - 03/07/2025 11:40 AM EDT She stated there was supposed to be a letter or some document to be faxed over to [facility] to help pay for her gas prior to her ERCP on 03/10/25 Email: [email or web address] Are we able to get that sent over for patient? Thank you Isis Joe documented in this encounterCleveland [facility]06-10-2025 Telephone encounter Note * Telephone Encounter - Juan Bloom LPN - 03/07/2025 12:28 PM EDT Images from the original note were not included. Jane Farrell MD Department of Gastroenterology- Advanced Endoscopy [address] [address] 03/07/2025 Pt. name: Gracie Banuelos 1965 MEDICAL Procedure This is to certify that Gracie Banuelos this is a letter to confirm that Gracie has a procedure at [facility] on 03/10 with an arrival time of 12pm. This appointment needs to have a responsible adult hearse driver to accompany her for transportation to and after her procedure. Sincerely, Jane Farrell MD [facility] Work Phone: [phone] 504-182906-10-2025 NoteHNO ID: [id number] Author: JUAN BLOOM LPN Service: ? Author Type: LICENSED NURSE Type: Progress Notes Filed: 03/07/2025 12:28 Note Text: Jane Farrell MD Department of Gastroenterology- Advanced Endoscopy [address] [id number] 03/07/2025 Pt. name: Gracie Banuelos 1965 MEDICAL Procedure This is to certify that Gracie Banuelos this is a letter to confirm that Gracie has a procedure at [facility] on 03/10 with an arrival time of 12pm. This appointment needs to have a responsible adult hearse driver to accompany her for transportation to and after her procedure. Sincerely, Jane [facility] History of Present illness Narrative* Juan Bloom LPN - 03/07/2025 11:57 AM EDT Images from the original note were not included. Jane Farrell MD Department of Gastroenterology- Advanced Endoscopy [address] [id number] 03/07/2025 Pt. name: Gracie Banuelos 1965 MEDICAL Procedure This is to certify that Gracie Banuelos this is a letter to confirm that Gracie has a procedure at [facility] on 03/10 with an arrival time of 12pm. This appointment needs to have a responsible adult hearse driver to accompany her for transportation to and after her procedure. Sincerely, Jane Farrell MD documented in this encounterC[facility]06-10-2025 Telephone encounter Note * Telephone Encounter - Isis Gil - 03/07/2025 11:40 AM EDT She stated there was supposed to be a letter or some document to be faxed over to [employer] to help pay for her gas prior to her ERCP on 03/10/25 Email: [email or web address] Are we able to get that sent over for patient? Thank you Isis Joe [facility]06-09-2025 Telephone encounter Note* Telephone Encounter - Juan Senior APRN.CNP - 03/06/2025 3:53 PM EDT Patient calling to discuss anxiety related to ERCP on Saturday 03/10. She is wondering if she can receive something for anxiety prior to procedure. Patient instructed to ask Dr. Farrell prior. Patient also asking for email to be sent to [employer] ([employer] assistance program) with proof ofprocedure for gas money. Patient also reports diarrhea and changes in mental status/forgetfulness and extreme fatigue after increasing gabapentin dose. Instructed patient to decrease dose from TID to BID. Also strongly encouraged patient to keep upcoming appointment with pain management. All questions answered at this time. Will follow up after procedure. Juan Senior APRN.CNP [facility] Work Phone: [phone] Miscellaneous Notes* Telephone Encounter - Juan Senior APRN.CNP - 03/06/2025 3:53 PM EDT Patient calling to discuss anxiety related to ERCP on Saturday 03/10. She is wondering if she can receive something for anxiety prior to procedure. Patient instructed to ask Dr. Sally inman. Patient also asking for email to be sent to [employer] ([employer] assistance program) with proof ofprocedure for gas money. Patient also reports diarrhea and changes in mental status/forgetfulness and extreme fatigue after increasing gabapentin dose. Instructed patient to decrease dose from TID to BID. Also strongly encouraged patient to keep upcoming appointment with pain management. All questions answered at this time. Will follow up after procedure. Juan Senior APRN.BOX TOE MAKER * Telephone Encounter - Dayana Bone - 02/03/2025 2:45 PM EDT Patient called the office and would like a refill for gabapentin (NEURONTIN) 300 mg capsule. Please send script to: [facility] [address] [place] [address] [address] - [phone] [363] Dayana Martell documented in this encounterCleveland Clinic [facility]06-09-2025 Telephone encounter Note * Telephone Encounter - Caitlin Obrien RN - 03/06/2025 11:30 AM EDT Attempted to reach patient to answer he questions from call this morning, no answer. VM left to call the office back. [facility] Work Phone: 1(297) 102-848006-09-2025 Miscellaneous Notes* Telephone Encounter - Caitlin Obrien RN - 03/06/2025 11:30 AM EDT Attempted to reach patient to answer he questions from call this morning, no answer. VM left to call the office back. documented in this encounterCleveland Clinic [facility]06-09-2025 Telephone encounter Note * Telephone Encounter - Isis Gil - 03/06/2025 9:04 AM EDT Gracie calling #[phone] Patient is calling regarding wanting to speak [...] voicemail is ok. Thank you Isis Joe [facility]06-09-2025 Miscellaneous Notes* Telephone Encounter - Isis Gil - 03/06/2025 9:04 AM EDT Gracie calling #[phone] Patient is calling regarding wanting to speak [...] Thank you Isis Joe documented in this encounterCleveland Clinic [facility]06-06-2025 Nurse Note* Jaelyn Kothari, RN - 03/03/2025 9:48 AM EDT Attempted to reach the patient at the contact number that they provided [phone] (home) . Unable to speak with patient so without identifying the patient the following information was left on their voice mail: Date of procedure, location and report time A message was left informing the patient/patient branch sales and service representative they must have a responsible adult [...] Number to call with questions or concerns [phone] Number to call to cancel their procedure [phone] Jaelyn Kothari RN [facility]06-06-2025 Nurse Note* Jaelyn Kothari RN - 03/03/2025 9:48 AM EDT Attempted to reach the patient at the contact number that they provided [phone] (home) . Unable to speak with patient so without identifying the patient the following information was left on their voice mail: Date of procedure, location and report time A message was left informing the patient/patient branch sales and service representative they must have a responsible adult [...] Number to call with questions or concerns [phone] Number to call to cancel their procedure [phone] Jaelyn Kothari RN documented in this encounterCleveland Clinic [facility]06-01-2025 Radiology Diagnostic study [facility]05-16-2025 Telephone encounter Note* Telephone Encounter - Pam Pino - 02/10/2025 11:31 AM EDT Received / transmitted outside records to patient's chart. See scanned documents tab (clearance letter). [facility] Work Phone: [phone] Miscellaneous Notes* Telephone Encounter - Pam Pino - 02/10/2025 11:31 AM EDT Received / transmitted outside records to patient's chart. See scanned documents tab (clearance letter). documented in this encounterCleveland Clinic [facility]05-14-2025 Evaluation note* Diagnosis Onset Date Resolution Status Admit Date Acute cholecystitis acute January 262024 1:07pm Alcoholic [...] pack years chronic March 13, 2025 11:28pm Acute cholecystitis acute April 10, 2025 9:57am Alcoholic hepatitis chronic April 10, 2025 9:57am Anxiety and depression chronic Ju ly 2024 9:57am Asthma chronic April 10 9:57am Chronic respiratory failure with hypoxia chronic April 10, 2025 9:57am COPD (chronic obstructive pulmonary disease) chronic April 10 9:57am Smoking greater than 30 pack years chronic April 10, 2025 9:57am History of alcohol abuse acute April 16, 2025 1:14am History of tobacco abuse acute April 16, 2025 1:14am Hypertensive urgency acute April 16, 2025 1:14am Leukocytosis acute April 16, 025 1:14am Presence of pancreatic duct stent acute April 16, 2025 1:14am Acute on chronic pancreatitis chroni c April 16, 2025 1:14am COPD (chronic obstructive pulmonary disease) chronic April 16 1:14am History of insertion of pancreatic stent acute April 26, 2025 1:34pm Loose stools acute Rocio 30th, 2 025 1:34pm Chronic pancreatitis chronic April 26, 2025 1:34pm [facility] Work Phone: 1(254) 587-171605-14-2025 Evaluation note* Diagnosis Onset Date Resolution Status Admit Date Acute cholecystitis acute January 262024 1:07pm Alcoholic hepatitis chronic January 262024 1:07pm Anxiety and depression chronic Ma 2024 1:07pm Asthma chronic February 08, 2025 [...] pack years chronic March 13, 2025 11:28pm Acute cholecystitis acute April 10, 2025 9:57am Alcoholic hepatitis chronic April 10, 2025 9:57am Anxiety and depression chronic 2024 9:57am Asthma chronic April 10 9:57am Chronic respiratory failure with hypoxia chronic April 10, 2025 9:57am COPD (chronic obstructive pulmonary disease) chronic April 10 9:57am Smoking greater than 30 pack years chronic April 10, 2025 9:57am History of alcohol abuse acute April 16, 2025 1:14am History of tobacco abuse acute April 16, 2025 1:14am Hypertensive urgency acute April 16, 2025 1:14am Leukocytosis acute April 16, 1:14am Presence of pancreatic duct stent acute April 16, 2025 1:14am COPD (chronic obstructive pulmonary disease) chronic April 16 1:14am Acute on chronic pancreatitis [facility] ed April 16, 2025 1:14am History of insertion of pancreatic stent acute April 26, 2025 1:34pm Loose stools acute April 26, 2 025 1:34pm Chronic pancreatitis chronic April 26, 2025 1:34pm [facility] Work Phone: 1([phone]) 447-663005-09-2025 Telephone encounter Note* Telephone Encounter - Dayana Bone - 02/03/2025 2:45 PM EDT Patient called the office and would like a refill for gabapentin (NEURONTIN) 300 mg capsule. Please send script to: [facility] [address] [place] [address] [address] - [phone] [006] Dayana Martell [facility]04-29-2025 Telephone encounter Note* Telephone Encounter - Holly [...] Holly Jensen January 24, 2025 8:59 AM [facility]04-29-2025 Miscellaneous Notes* Telephone Encounter - Holly Herrera [...] tablet by mouth daily at bedtime. Holly Aysha Jensen January 24, 2025 8:59 AM documented in this encounterCleveland Clinic [facility]04-22-2025 Telephone encounter Note * Telephone Encounter - Mihaela Cadena - 01/17/2025 12:01 PM EDT Appears patient was seen on 01/13/25 [facility]04-22-2025 Miscellaneous Notes* Telephone Encounter - Mihaela Cadena [...] GI bleeds. Thank you Soila Easton APRN.CNP * Telephone Encounter - Chen Chauhan LPN [...] extra strength Ibuprofen 400 mg. Patient uses [email or web address], [employer]. documented in this encounterCleveland Clinic [facility]04-18-2025 NoteHNO ID: [id number] Author: SOILA EASTON APRN.BOX TOE MAKER Service: ? Author Type: Nurse Practitioner Type: Progress Notes Filed: 01/13/2025 11:33 Note Text: CC: Patient presents with: Recheck: Follow up HPI Gracie Banuelos is a 59 year old female who presents today for gout concerns. Recording using [employer] software for draft documentation of the visit was discussed with the patient/authorized branch sales and service representative; all questions welcomed and answered. Patient/authorized branch sales and service representative agreed to proceed Gout: - Under [...] of months ago asa ordered by her excel analyst. - Denies redness or red streaking; COPD [...] will be in the 90s. States her makeup sales advisor is aware of this. - Concerns about potential need for ventilator post-surgery. - Under care of Dr. Sebastian and Ani at [facility]. - No recent infections, fever, or [...] Stage 3 severe COPD by GOLD classification ([facility]) 2018 Tobacco use greater than 30 years [...] by mouth once daily. (more content not included)...[facility]04-18-2025 History of Present illness Narrative* Soila Easton APRN.BOX TOE MAKER - 01/13/2025 11:11 AM EDT CC: Patient presents with: Recheck: Follow up HPI Gracie Banuelos is a 59 year old female who presents today for gout concerns. Recording using [employer] software for draft documentation of the visit was discussed with the patient/authorized branch sales and service representative; all questions welcomed and answered. Patient/authorized branch sales and service representative agreed to proceed Gout: - Under [...] of months ago asa ordered by her excel analyst. - Denies redness or red streaking; COPD [...] will be in the 90s. States her makeup sales advisor is aware of this. - Concerns about potential need for ventilator post-surgery. - Under care of Dr. Sebastian and Ani at [facility]. - No recent infections, fever, or [...] Stage 3 severe COPD by GOLD classification ([facility] [facility]) 2018 Tobacco use greater than 30 years [...] evaluation and management by GI specialists at [facility]. - Awaiting pancreatic stent placement; pulmonary status [...] care of Dr. Sebastian and Ani at [facility]. - No recent infections, fever, or [...] plan. Soila Easton APRN.CNP documented in this encounterC[facility] Clinic [facility]04-17-2025 Telephone encounter Note * Telephone Encounter - Marge Perkins RN - 01/12/2025 1:15 PM EDT Pt has appointment with Soila Easton Phytopathology Teacher on 01/14/24. [facility]04-17-2025 Miscellaneous Notes* Telephone Encounter - Marge Perkins RN - 01/12/2025 1:15 PM EDT Pt has appointment with Soila Easton Phytopathology Teacher on 01/14/24. * Telephone Encounter - Aleta Carroll MA - 01/10/2025 9:51 AM EDT Spoke with pt, she states she has urinary incontinence and trouble holding her urine when she is outside her home. Sent rx to [facility]. FYI: Pt scheduled appt tomorrow with Soila Easton to discuss multiple concerns. Aleta Carroll MA * Telephone Encounter - Misbah Elkins MD - 01/09/2025 10:00 PM EDT Please confirm with her, the symptoms for which she needs the pull ups, Regards, Misbah Elkins MD * Telephone Encounter - Marge Perkins RN - 01/09/2025 7:13 PM EDT Pt called in and reports she can get pull ups paid for through [employer]. She states the provider jst has to [...] advise. Marge Perkins RN documented in this encounterC[facility] Clinic [facility]04-15-2025 Telephone encounter Note * Telephone Encounter - Aleta Carroll MA - 01/10/2025 9:51 AM EDT Spoke with pt, she states she has urinary incontinence and trouble holding her urine when she is outside her home. Sent rx to [facility]. FYI: Pt scheduled appt tomorrow with Soila Easton to discuss multiple concerns. Aleta Carroll MA [facility]04-14-2025 Telephone encounter Note* Telephone Encounter - Misbah Elkins MD - 01/09/2025 10:00 PM EDT Please confirm with her, the symptoms for which she needs the pull ups, Misbah Cisneros MD [facility]04-14-2025 Telephone encounter Note* Telephone Encounter - Marge Perkins RN - 01/09/2025 7:13 PM EDT Pt called in and reports she can get pull ups paid for through [employer]. She states the provider jst has to [...] any questions. Please call and advise. Marge Perknis RN [facility]04-14-2025 Telephone encounter Note* Telephone Encounter - Juan Bloom LPN - 01/09/2025 12:44 PM EDT Disp Refills Start End gabapentin (NEURONTIN) 300 mg capsule 60 capsule 0 01/09/2025 02/08/2025 Sig: Take 1 capsule by mouth two times a day for 30 days. Sent to pharmacy as: gabapentin (NEURONTIN) 300 mg capsule Class: Normal Route: ORAL Order: [id number] Cosign for Ordering: Required by Juan Senior APRN.BOX TOE MAKER E-Prescribing Status: Sent to pharmacy (01/09/2025 12:43 PM EDT) [facility] Work Phone: 1(961) 644-345404-14-2025 Miscellaneous Notes* Telephone Encounter - Juan Bloom LPN - 01/09/2025 12:44 PM EDT Disp Refills Start End gabapentin (NEURONTIN) 300 mg capsule 60 capsule 0 01/09/2025 02/08/2025 Sig: Take 1 capsule by mouth two times a day for 30 days. Sent to pharmacy as: gabapentin (NEURONTIN) 300 mg capsule Class: Normal Route: ORAL Order: [id number] Cosign for Ordering: Required by Juan Senior APRN.BOX TOE MAKER E-Prescribing Status: Sent to pharmacy (01/09/2025 12:43 [...] February. Please review and advise. Dayana Martell Mission Analyst documented in this encounterCleveland Clinic [facility]04-14-2025 Telephone encounter Note * Telephone Encounter - [...] Juan Senior for recommendations. Juan Bloom LPN [facility] Work Phone: 1(160) 695-659104-14-2025 Miscellaneous Notes* Telephone Encounter - Juan Bloom [...] pain? Raisa Jimenez MA documented in this encounterCleveland Clinic [facility]04-14-2025 Telephone encounter Note * Telephone Encounter - Raisa Jimenez RN - 01/09/2025 8:53 AM EDT Pt is calling asking that someone please contact her. She is in extreme pain and missed her pain management appt She's left several messages but is asking if you can put a script in for pain? Raisa Jimenez MA [facility]04-11-2025 Telephone encounter Note* Telephone Encounter - Dayana Bone - 01/06/2025 12:39 PM EDT Patient called the office stating that she missed her pain management appointment and would like toknow if the office would be able to prescribe her some pain medication until she is able to have her appointment in February. Please review and advise. Dayana Martell Mission Analyst [facility]04-10-2025 Telephone encounter Note* Telephone Encounter - Ronakhaily DohertyNoemí - 01/05/2025 1:36 PM EDT Patient called. She missed her pain management appointment today. She was rescheduled for March 14. She would like to speak to you regarding this today, if possible. [phone] (home) [facility] Work Phone: 1(498) 799-343504-10-2025 Miscellaneous Notes* Telephone Encounter - Burton BessyNoemí - 01/05/2025 1:36 PM EDT Patient called. She missed her pain management appointment today. She was rescheduled for March 14. She would like to speak to you regarding this today, if possible. [phone] (home) documented in this encounterCleveland Clinic [facility]04-08-2025 Telephone encounter Note * Telephone Encounter - Jordana Zayas - 01/03/2025 12:23 PM EDT Prescription Refill [...] of this medication. Please send today [facility], per patient she was told to [...] Jordana Estes January 03, 2025 12:24 PM [place] [address]-08-2025 Miscellaneous Notes* Telephone Encounter - Mitali SmithnicholeJordana - 01/03/2025 12:23 PM EDT Prescription Refill [...] of this medication. Please send today [facility], per patient she was told to [...] 03, 2025 12:24 PM documented in this encounterCleveland Clinic [facility]04-07-2025 Telephone encounter Note * Telephone Encounter - Eva Guardado - 01/02/2025 2:11 PM EDT Left message for patient to return call. When patient calls, please obtain the answers to Soila Easton's questions below or transfer to nurse to get the requested information. Eva Guardado [facility]04-07-2025 Telephone encounter Note* Telephone Encounter - Soila Easton APRN.CNP - 01/02/2025 9:26 AM EDT Hesitant to send the ibuprofen. What has she been taking for pain? She was jsut in hospital with EGD and found blood in her mouth any recent Gi bleeds? Ibuprofen can cause GI bleeds. Thank you Soila Easton APRN.CNP [facility]04-07-2025 Telephone encounter Note* Telephone Encounter - Chen [...] Chauhan LPN January 02, 2025 8:30 AM [facility]04-06-2025 Radiology Diagnostic study [facility]04-06-2025 Discharge summary Author Leandro Sanchez [facility] Note Date/Time January 01, 2025 10:0 6pm [facility] Medical Records Department [address] [place] [address] Emergency Department Summary 01/01/25 MR#: [id number] Acct: [id number] Name: GRACIE BANUELOS Rep #:[id number] : 1965 59 From: Leandro Sanchez MD [...] to have surgery on December 27 at [facility], but it was postponed secondary to her makeup sales advisor stating that she should not have surgery [...] on January 05, 4 days from now. [facility] Medical History Stenosis of left [...] Allergy Other Verified 01/01/25 20:30 hydrocodone (From [place]) AdvReac Itching Verified 01/01/25 20:30 Family History [...] was bolused normal saline 1 L intravenously. Gvacaea519 with a normal anion gap of 11. [...] interstitial markings. No focal consolidation. [facility] T[facility] Chief Complaint: Abd Pain [...] pain, new or worsening symptoms. Print Language: Nepalese Disposition Disposition: Home, Self Care What to do if you have Problems For any increased pain, shortness of breath, bleeding, nausea or vomiting, chestpain, or any unexpected problems, contact your Primary Care Provider. Call [facility] ([phone]) or report to the closest Emergency Room. Call 911 if necessary. 01/01/252205 <Electronically signed by Leandro Sanchez MD> Cosigner Signature (if applicable): CC: Dr. Misbah Elkins MD ~ Signed [facility] Work Phone: 1(911) 148-497504-05-2025 Telephone encounter Note* Telephone Encounter - Tyra Meraz RN - 12/31/2024 2:32 PM EDT Patient calling with request for medication/refill: Patient/caregiver requesting refill of Motrin and Zofran be called to [facility] pharmacy at [phone]., Allergies reviewed: Yes, Medication, dosage and sig reviewed: Yes. , Do you have enough medication to last until the office reopens? Yes. ,and Have you contacted your pharmacy to ask for enough medication to get by until the office reopens? No. Patient denies any new or worsening symptoms of which a provider is not aware: Yes. [facility]04-05-2025 Miscellaneous Notes* Telephone Encounter - Tyra Meraz RN - 12/31/2024 2:32 PM EDT Patient calling with request for medication/refill: Patient/caregiver requesting refill of Motrin and Zofran be called to [facility] pharmacy at [phone]., Allergies reviewed: Yes, Medication, dosage and sig reviewed: Yes. , Do you have enough medication to last until the office reopens? Yes. ,and Have you contacted your pharmacy to ask for enough medication to get by until the office reopens? No. Patient denies any new or worsening symptoms of which a provider is not aware: Yes. documented in this encounterCleveland Clinic [facility]04-05-2025 Telephone encounter Note * Telephone Encounter - Marge Handy RN - 12/31/2024 2:08 PM EDT Patient calling with medication/refill: Patient/caregiver requesting refill of ibuprofen be called to [facility] ([place]) pharmacy at [phone]., Allergies reviewed: Yes, Medication, dosage and sig [...] and had no further questions or concerns. [facility] Work Phone: 1(214) 949-592804-05-2025 Miscellaneous Notes* Telephone Encounter - Marge Handy RN - 12/31/2024 2:08 PM EDT Patient calling with medication/refill: Patient/caregiver requesting refill of ibuprofen be called to [facility] ([place]) pharmacy at [phone]., Allergies reviewed: Yes, Medication, dosage and sig [...] requested a refill of ondansetron but per [facility], she should have a refill available. [...] further questions or concerns. documented in this encounterCleveland Clinic [facility]04-05-2025 Telephone encounter Note * Telephone Encounter - Carolyne Trimble - 12/31/2024 9:25 AM EDT Patient called stating she has pain mgmt appt on 01/05. Patient is requesting zofran, and extra strength Ibuprofen 400 mg. Patient uses [facility]. [facility] Work Phone: 1(822) 195-902204-02-2025 Telephone encounter Note* Telephone Encounter - Juan [...] Juan Senior as well Juan Bloom LPN [facility] Work Phone: 1([phone]) 323-451404-02-2025 Miscellaneous Notes* Telephone Encounter - Juan Bloom [...] for review. Patient has Pain Management on 4/10 she does have current C/O abdominal pain- [...] Patient returned call. Can be reached at: [phone] (home) * Telephone Encounter - Jaun Bloom LPN - 12/28/2024 3:02 PM EDT VM left for Gracie Banuelos to discuss current symptoms Offered to call office for discussion. Juan Bloom LPN * Telephone Encounter - Lyric Yeung - 12/28/2024 8:53 AM EDT Outside pulmonary function test & CT lung screen results scanned in Epic Lyirc Yeung * Telephone Encounter - Dayana Bone [...] and advise. Dayana Martell documented in this encounterCleveland Clinic [facility]04-02-2025 Telephone encounter Note * Telephone Encounter - Noemí Self - 12/28/2024 3:14 PM EDT Patient returned call. Can be reached at: [phone] (home) [facility] Work Phone: 1(462) 502-563504-02-2025 Telephone encounter Note* Telephone Encounter - Juan Bloom LPN - 12/28/2024 3:02 PM EDT left for Gracie Banuelos to discuss current symptoms Offered to call office for discussion. Juan Bloom LPN [facility]04-02-2025 Telephone encounter Note* Telephone Encounter - Lyric Yeung - 12/28/2024 8:53 AM EDT Outside pulmonary function test & CT lung screen results scanned in Epic Lryic Yeung [facility]04-01-2025 Telephone encounter Note* Telephone Encounter - Dayana [...] COPD. Please review and advise. Dayana Martell [facility]03-28-2025 Telephone encounter Note* Telephone Encounter - Raisa Jimenez RN - 12/23/2024 12:30 PM EDT Spoke with pt and went over instructions and directions for her appt on 12/27/24. Pt wrote down verbal instructions and confirmed understanding Raisa Lozano) CHERELLE [facility]03-28-2025 Miscellaneous Notes* Telephone Encounter - Raisa Jimenez RN - 12/23/2024 12:30 PM EDT Spoke with pt and went over instructions and directions for her appt on 12/27/24. Pt wrote down verbal instructions and confirmed understanding Raisa Jimenez ([place]) [place] documented in this encounterCleveland Clinic [facility]03-28-2025 Evaluation note* Diagnosis Onset Date Resolution Status Admit Date Acute cholecystitis acute December 23, 2024 9:59am Alcoholic hepatitis chronic December 23, 2024 9:59am Anxiety and depression chronic [facility] 2024 9:59am Asthma chronic December 23 9:59am Chronic pancreatitis chronic [facility] 2024 9:59am Chronic respiratory failure with hypoxia chronic December 23, 2024 9:59am COPD (chronic obstructive pulmonary disease) chronic December 23, 9:59am Smoking greater than 30 pack years chronic December 23, 2024 9:59am Acute cholecystitis acute January 262024 1:07pm Alcoholic hepatitis chronic January 262024 1:07pm Anxiety and depression chronic [facility] [facility] 2024 1:07pm Asthma chronic February 08, [...] pack years chronic March 13, 2025 11:28pm Acute cholecystitis acute April 10, 2025 9:57am Alcoholic hepatitis chronic April 10, 2025 9:57am Anxiety and depression chronic [facility] 2024 9:57am Asthma chronic April 10 9:57am Chronic respiratory failure with hypoxia chronic April 10, 2025 9:57am COPD (chronic obstructive pulmonary disease) chronic April 10 9:57am Smoking greater than 30 pack years chronic April 10, 2025 9:57am History of alcohol abuse acute April 16, 2025 1:14am History of tobacco abuse acute April 16, 2025 1:14am Hypertensive urgency acute April 16, 2025 1:14am Leukocytosis acute April 16, 025 1:14am Presence of pancreatic duct stent acute April 16, 2025 1:14am Acute on chronic pancreatitis chroni c April 16, 2025 1:14am COPD (chronic obstructive pulmonary disease) chronic April 16 1:14am [facility] Work Phone: 1(295) 246-545503-27-2025 Telephone encounter Note* Telephone Encounter - Eileen Chavez MA - 12/22/2024 9:01 AM EDT Message sent. [facility]03-27-2025 Miscellaneous Notes* Telephone Encounter - Eileen Chavez [...] her when they are. documented in this encounterCleveland Clinic [facility]03-27-2025 Telephone encounter Note * Telephone Encounter - Soila Easton APRN.CNP - 12/22/2024 8:07 AM EDT I am assuming this is regards to the chest xray as ordered by tara Youngblood. If so please see her result note on the xray. If not, please specify which xray I need to address. Thank you Soila Easton APRN.CNP [facility]03-26-2025 Telephone encounter Note* Telephone Encounter - Sylvia Chawla MA - 12/21/2024 2:05 PM EDT Pt informed Pt asking for xray results but still in process Sylvia Chawla MA [facility]03-26-2025 Miscellaneous Notes* Telephone Encounter - Sylvia Chawla MA - 12/21/2024 2:05 PM EDT Pt informed Pt asking for xray results but still in process Sylvia Chawla MA * Telephone Encounter - Tara Youngblood APRN.CNP - 12/21/2024 9:25 AM EDT Please call patient and let her know that lab work results are improving. WBC is actually slightly improved from inpatient recent labs. Lipase level is WNL which is great. Continue as discussed in office. Thank you, Tara Youngblood APRN.CNP documented in this encounterCleveland Clinic [facility]03-26-2025 Telephone encounter Note * Telephone Encounter - Tara Youngblood APRN.BOX TOE MAKER - 12/21/2024 9:25 AM EDT Please call patient and let her know that lab work results are improving. WBC is actually slightly improved from inpatient recent labs. Lipase level is WNL which is great. Continue as discussed in office. Thank you, Tara Youngblood APRN.BOX TOE MAKER [facility] Work Phone: 1(337) 752-236503-25-2025 Nurse Note* Carroll Leblanc RN - 12/20/2024 2:55 PM EDT Attempted to reach the patient at the contact number that they provided [phone] (home) . 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 they must have a responsible adult [...] Number to call with questions or concerns [phone] Number to call to cancel their procedure [phone] Carroll Leblanc RN [facility]03-25-2025 Nurse Note* Carroll Leblanc RN - 12/20/2024 2:55 PM EDT Attempted to reach the patient at the contact number that they provided [phone] (home) . 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 they must have a responsible adult [...] Number to call with questions or concerns [phone] Number to call to cancel their procedure [phone] Carroll Leblanc RN documented in this encounterCleveland Clinic [facility]03-24-2025 Telephone encounter Note * Telephone Encounter - Marge Perkins RN - 12/19/2024 6:51 PM EDT Pt called in for x-ray results. I let Pt know they are not back in yet and provider would call her when they are. [facility]03-24-2025 History of Present illness Narrative* Roland Camargo [...] PATIENT PRESENTS WITH AN IMPLANTABLE OR ATTACHED EXOTIC DANCER: No RADIOLOGY DEPARTMENT: General X-ray: Exam(s) Completed: Chest X-Ray PERIPHERAL IV DATA: Not applicable SIGNED BY: RT Oneyda(R) December 19, 2024 3:53 PM documented in this encounterCleveland Clinic [facility]03-24-2025 NoteHNO ID: [id number] Author: ROLAND CAMARGO RT(Heath) Service: Radiology Author Type: Technologist Type: Progress [...] PATIENT PRESENTS WITH AN IMPLANTABLE OR ATTACHED EXOTIC DANCER: No RADIOLOGY DEPARTMENT: General X-ray: Exam(s) Completed: Chest X-Ray PERIPHERAL IV DATA: Not applicable SIGNED BY: RT Oneyda(R) December 19, 2024 3:53 [facility]03-24-2025 History of Present illness Narrative* Tara Youngblood, UNA.BOX TOE MAKER - 12/19/2024 2:40 PM EDT Chief Complaint Patient presents with: hospital f/up HPI Gracie Banuelos is a 59 year old female who presents here today for Above Complaints. Gracie is an established patient of Dr. Satnam MD. Concerns today.. Hospital follow-up--- [facility] admission from 12/04-12/12 d/t acute hypoxic respiratory [...] help her quit. 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 Chronic recurrent pancreatitis -- had recent surgery [...] Stage 3 severe COPD by GOLD classification ([facility]) 2018 Tobacco use greater than 30 years [...] capsule by mouth at bedtime as needed. eigacc-iwnlzeev-ciodryr (CREON 24) 24,000-76,000 -120,000 unit delayed release [...] ICD10: F17.200 - Cessation encouraged. Pt declined guest service aide to help with cessation. Pt has [...] Patient agreeable to treatment plan. Tara Youngblood APRN.BOX TOE MAKER [address] [place] [address] documented in this encounterCleveland Clinic [facility]03-24-2025 NoteHNO ID: [id number] Author: TARA YOUNGBLOOD APRN.CNP Service: ? Author Type: Nurse Practitioner Type: Progress Notes Filed: 12/19/2024 15:33 Note Text: Chief Complaint Patient presents with: hospital f/up HPI Gracie Banuelos is a 59 year old female who presents here today for Above Complaints. Gracie is an established patient of Dr. Satnam MD. Concerns today.. Hospital follow-up--- [facility] admission from 12/04-12/12 d/t acute hypoxic respiratory [...] help her quit. 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 Chronic recurrent pancreatitis -- had recent surgery [...] airways disease (HCC) Alcohol dependence in remission ([facility]) 07/10/2015 Alcohol use disorder 08/27/2017 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 pancreatitis Alcoholic hepatitis 05/18/2012 Alcoholic liver disease (HCC) 11/16/2013 Anemia Anxiety with depression Arthritis Asthma Chronic hypoxemic respiratory failure (HCC) COPD (chronic obstructive pulmonary disease) ([facility]) 05/25/2012 DDD (degenerative disc disease), cervical 09/03/2018 [...] Stage 3 severe COPD by GOLD classification ([facility]) 2018 Tobacco use greater than 30 years [...] (LOPRESSOR) 25 mg ta (more content not included)...[facility]03-17-2025 Consult note [facility] Medical Records Department [address] [place] [address] Anesthesia Postop Eval II 12/12/24 1751 MR#: [id number] Acct: [id number] Name: GRACIE BANUELOS Rep #:[id number] : 1965 59 From: Jeferson Breaux MD PCP: Dr. Misbah Elkins MD Status:ADM I N Y Race: C Location: [place] [address] 3-1 Anesthesia Postop Eval I Sum Postop Eval Completion status Anesthesia document: Postop Eval 1 completed: Yes Anesthesia Postop Eval I Summary Anesthesia Postop Eval I Summary: Anesthesia Postop Eval I: Assessment Summary Airway patent Yes 12/12/24 13:08 DISTRIBUTION SPECIALIST.PKEL Spontaneous unlabored Yes 12/12/24 13:08 DISTRIBUTION SPECIALIST.PKEL respirations Mental status Awake,Calm 12/12/24 13:08 DISTRIBUTION SPECIALIST.PKEL nausea No 12/12/24 13:08 DISTRIBUTION SPECIALIST.PKEL Vomiting No 12/12/24 13:08 DISTRIBUTION SPECIALIST.PKEL Anesthesia Postop Eval I: Fluid Summary Crystalloid volume administer 30 12/12/24 13:08 DISTRIBUTION SPECIALIST.PKEL (ml) Colloids volume administered ( ml) Blood Product volume administered (ml) Total IV fluid infused 30 12/12/24 13:08 DISTRIBUTION SPECIALIST.PKEL Anesthesia Postop Eval I: Summary Notes Anesthesia Complication No 12/12/24 13:08 DISTRIBUTION SPECIALIST.PKEL Anesthesia Complication Comment: Post-operative progress note Anesthesia: Postop Eval II Evaluation Mental status: Awake and Calm Pain Level: 1 nausea: No Vomiting: No Complications Anesthesia Complication: No 12/12/24 1751 dillon MENENDEZ> Date _ Jeferson Pettit Signature: Date CC: ~ Signed [facility]03-17-2025 Discharge summary Author Anastacia Bonilla [facility] Note Date/Time December 12, 2024 3:5 4pm [facility] Medical Records Department [address] [place] [address] Instructions for Home/Discharge Instructions 12/12/24 1547 MR#: [id number] Acct: [id number] Name: GRACIE BANUELOS Rep #:[id number] : 1965 59 From: Anastacia Bonilla MD [...] DO; Dr. Yrn Kahn DO ~ Signed [facility] Work Phone: 1(789) 222-473803-17-2025 Discharge summary Author Anastacia Bonilla [facility] Note Date/Time December 12, 2024 4:5 7pm [facility] Medical Records Department [address] [place] [address] Discharge Summary 12/12/24 1554 MR#: [id number] Acct: [id number] Name: GRACIE BANUELOS Rep #:[id number] : 1965 59 From: Anastacia Bonilla MD PCP: Dr. Misbah Elkins MD Status:ADM I N Location: [place] [address] Providers Date of Admission: 12/04/24 Date of Discharge: 12/12/24 Primary Care Physician: Dr. Misbah Elkins MD Consultations 12/05/24 09:19 Consult: Paint Stock Clerk / Pulmonary Medicine Routine Consulting Provider: Intensivists/Pulmonary Med Reason for Consult: respiratory failure EMERGENT Consult: No Notified: Yes Date Notified: 12/05/24 Time Notified: 09:19 Method of Notification: Text 12/09/24 17:42 Consult: Gastroenterology Routine Consulting Provider: [facility] Reason for Consult: dysphagia EMERGENT Consult: [...] Self Care Charges/Coding Visit Charges Inpatient E&M: 29758 Disch Hosp >30min 12/12/24 1610 <Electronically signed [...] MD; Dr. Anastacia Bonilla MD ~* Signed [facility] Work Phone: 1(600) 564-406103-17-2025 Discharge summary [facility] Medical Records Department [address] [place] [address] Discharge Summary 12/12/24 1554 MR#: [id number] Acct: [id number] Name: GRACIE BANUELOS Rep #:[id number] : 1965 59 From: Anastacia Bonilla MD PCP: Dr. Misbah Elkins MD Status:ADM I N Location: [place] [address] Providers Date of Admission: 12/04/24 Date of Discharge: 12/12/24 Primary Care Physician: Dr. Misbah Elkins MD Consultations 12/05/24 09:19 Consult: Paint Stock Clerk / Pulmonary Medicine Routine Consulting Provider: Intensivists/Pulmonary Med Reason for Consult: respiratory failure EMERGENT Consult: No Notified: Yes Date Notified: 12/05/24 Time Notified: 09:19 Method of Notification: Text 12/09/24 17:42 Consult: Gastroenterology Routine Consulting Provider: [facility] Reason for Consult: dysphagia EMERGENT Consult: [...] Self Care Charges/Coding Visit Charges Inpatient E&M: 61250 Disch Hosp >30min 12/12/24 1610 Cosigner Signature [...] MD; Dr. Anastacia Bonilla MD ~* Signed [facility]03-17-2025 Discharge summary [facility] Medical Records Department [address] [place] [address] Instructions for Home/Discharge Instructions 12/12/24 1547 MR#: [id number] Acct: [id number] Name: GRACIE BANUELOS Rep #:[id number] : 1965 59 From: Anastacia Bonilla MD [...] Care 12/12/24 1554Anastacia Bonilla MD CC: Dr. Misbah Elknis MD; Dr. Aleta Aguayo DO; Dr. Yrn Kahn DO ~ Signed [facility]03[facility]17[facility] Consult note Author Guevara Jimenez [facility] Note Date/Time December 12, 2024 1:0 8pm [facility] Medical Records Department [address] [place] [address] Anesthesia Postop Eval I 12/12/24 1307 MR#: [id number] Acct: [id number] Name: GRACIE BANUELOS Rep #:[id number] : 1965 59 From: Guevara Jimenez CRNA PCP: Dr. Misbah Elkins MD Status:ADM I N Y Race: C Location: [place] [address] 3-1 Anesthesia: Postop Eval I Current Vital Signs [...] Guevara borges CRNA> Date _ Guevara Jimenez DISTRIBUTION SPECIALIST Cosigner Signature: Date CC: ~ Signed [facility] Work Phone: 1(171) 208-289103-17-2025 Progress note Author Marshal Segura [facility] Note Date/Time December 12, 2024 12: 39pm [facility] Medical Records Department [address] [place] [address] Progress Note 12/12/24 1237 MR#: [id number] Acct: [id number] Name: GRACIE BANUELOS Rep #:[id number] : 1965 59 From: Marshal Segura DO PCP: Dr. Misbah Elkins MD Status:ADM I N Location: [place] [address] Progress Note Patient has been n.p.o. for [...] ASA of 3. Visit Charges Inpatient E&M: 32488 Subs Hosp L2 12/12/24 1239 <Electronically signed by Marshal Segura DO> Marshal Segura DO Cosigner Signature (if applicable): CC: ~ Signed [facility] Work Phone: 1(786) 617-776403-17-2025 Consult note Author Jeferson Breaux [facility] Note Date/Time December 12, 2024 12: 15pm [facility] Medical Records Department [address] [place] [address] Pre-Anesthesia Evaluation 12/12/24 1203 MR#: [id number] Acct: [id number] Name: GRACIE BANUELOS Rep #:[id number] : 1965 59 From: Jeferson Breaux MD PCP: Dr. Misbah Elkins MD Status:ADM I N Y Race: C Location: [place] [address] 3-1 ASA Classification* ASA Classification ASA Classification: [...] possible dilation. Anesthesia History Anesthesia History - lead trainer: Anesthesia History - lead trainer Hx Hospitalization Yes 08/12/20 11:23 Any Problems [...] sips of water?: Yes PONV PONV - lead trainer: PONV - lead trainer Female HX of Motion Sickness HX of N/V After Surgery Non-Smoker Duration of Surgery greater than 60 minutes Number of Risk Factors PONV Score Height & Weight Height & Weight: Anesthesia: Height & Weight Height 5 ft 3 in 12/11/24 13:34 Weight: 60.7 kg 12/12/24 05:02 Body Mass Index (BMI) 23.7 12/12/24 05:02 Respiratory Assessment Respiratory Assessment - lead trainer: Respiratory Tract Infection Hx - lead trainer Hx Respiratory Tract Infection No 06/12/21 02:55 STOP Sleep Apnea STOP Sleep Apnea - lead trainer: STOP Sleep Apnea - lead trainer Hx Hypertension Yes 12/04/24 20:21 Hx Sleep [...] Tobacco Use History Tobacco Use History - lead trainer: Tobacco Use History - lead trainer Tobacco Use Cigarettes 01/22/21 20:43 Smoking Status Heavy Smoker (>10/day) 12/06/24 05:11 Hx Tobacco Use Yes 12/04/24 20:21 Years Smoking Packs Smoked per Day Smoking Cessation Date was within the last 15 years Hx Smoking Cessation Date Hx Smoking Cessation No 12/04/24 20:21 Counseling Hematologic Medial History 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 Specify any problems Hx of Preganancy in last 3 No 12/04/24 20:21 Months Nurse Filling Out Transfusion MGROVE 12/04/24 20:21 & Questions: Date: 12/04/24 12/04/24 20:21 Time: 20:27 12/04/24 20:21 Patient unable to answer at this time (ie. confused, unrespo /Reproduction History /Reproductive History - lead trainer: /Reproductive Hx- lead trainer Hx Now Gestational Age (in weeks): EDC: [...] 07:41 Hydrochlorothiazide 12.5mg PO 12.5 mg BREAKFAST DCAIA Administration Protocol Hydroxyzine Pamoate 25 mg 12/04/24 [...] Allergy Other Verified 12/04/24 15:55 hydrocodone (From [place]) AdvReac Itching Verified 12/04/24 15:55 Family History [...] MD Cosigner Signature: Date CC: ~ Signed [facility] Work Phone: 1(903) 224-818003-17-2025 Progress note Author Gonzalo Sebastian [facility] Note Date/Time December 12, 2024 11: 29am [facility] Medical Records Department [address] [place] [address] Progress Note - Paint Stock Clerk 12/12/24 1000 MR#: [id number] Acct: [id number] Name: VINGRACIE S Rep #:[id number] : 1965 59 From: Gonzalo Sebastian DO PCP: Dr. Misbah Elkins MD Status:ADM I N Location: [place] [address] Assessment & Plan Assessment/Plan (1) COPD with [...] medicationsas indicated. This note was generated with LinPrim dictation software. It may contain incorrectwords, spelling, [...] Affect: anxious Charges/Coding Visit Charges Inpatient E&M: 72425 Subs Hosp L2 12/12/24 1129 <Electronically signed by Gonzalo Sebastian DO> Cosigner Signature (if applicable): CC: ~ Signed [facility] Work Phone: 1(206) 211-578903-17-2025 Consult note [facility] Medical Records Department [address] [place] [address] Anesthesia Postop Eval I 12/12/24 1307 MR#: [id number] Acct: [id number] Name: GRACIE BANUELOS Rep #:[id number] : 1965 59 From: Guevara Jimenez CRNA PCP: Dr. Misbah Elkins MD Status:ADM I N Y Race: C Location: [address] Anesthesia: Postop Eval I Current Vital Signs [...] Eval 1 completed: Yes 12/12/24 1308 y DISTRIBUTION SPECIALIST> Date _ Guevara Jimenez CRNA Cosigner Signature: Date CC: ~ Signed [facility]03-17-2025 Procedure note [facility] Medical Records Department [address] [place] [address] EGD Report MR#: [id number] Acct: [id number] Name: GRACIE BANUELOS Rep #:[id number] : 1965 59 From: Marshal Segura DO [...] present medications. Procedure Code(s): --- Professional --- 03708, Esophagogastroduodenoscopy, flexible, transoral; with insertion of guide wire followed by passage of dilator(s) through esophagus over guide wire CPT copyright 2021 [employer]. All rights reserved. The codes documented in this report are preliminary and upon senior geotechnical engineer review may be revised to meet current compliance requirements. Marshal Segura DO 12/12/2024 1:07:14 PM This report has been signed electronically. Number of Addenda: 0 Note Initiated On: 12/12/2024 12:40 PM 12/12/24 1307 Date _ Marshal Segura DO Cosigner Signature: Date (if indicated) CC: Dr. Misbah Elkins MD; Marshal Segura DO ~ Date Dictated: 12/12/24 1240 Date Transcribed: Weathercaster: RF Signed [facility]03-17-2025 Procedure note [facility] Medical Records Department [address] [place] [address] Operative Report - CC Letter MR#: [id number] Acct: [id number] Name: GRACIE BANUELOS Rep #:[id number] : 1965 59 From: Marshal Segura DO PCP: Dr. Misbah Elkins MD Status:ADM I N 12/12/2024 Misbah Elkins [address] [place] [address] Re : Upper GI endoscopy procedure for [...] DO; Dr. Yrn Kahn DO; Dr. Anastacia Bonlila MD ~ Date Dictated: 12/12/24 1240 Date Transcribed: Weathercaster: RF Signed [facility]03-17-2025 Progress note [facility] Medical Records Department [address] [place] [address] Progress Note 12/12/24 1237 MR#: [id number] Acct: [id number] Name: GRACIE BANUELOS Rep #:[id number] : 1965 59 From: Marshal Segura DO PCP: Dr. Misbah Elkins MD Status:ADM I N Location: [place] [address] Progress Note Patient has been n.p.o. for [...] ASA of 3. Visit Charges Inpatient E&M: 81924 Subs Hosp L2 12/12/24 1239 Marshal Segura DO Cosigner Signature (if applicable): CC: ~ Signed [facility]03-17-2025 Consult note [facility] Medical Records Department [address] [place] [address] Pre-Anesthesia Evaluation 12/12/24 1203 MR#: [id number] Acct: [id number] Name: GRACIE BANUELOS Rep #:[id number] : 1965 59 From: Jeferson Breaux MD PCP: Dr. Misbah Elkins MD Status:ADM I N Y Race: C Location: [place] [address] 3-1 ASA Classification* ASA Classification ASA Classification: [...] possible dilation. Anesthesia History Anesthesia History - lead trainer: Anesthesia History - lead trainer Hx Hospitalization Yes 08/12/20 11:23 Any Problems [...] sips of water?: Yes PONV PONV - lead trainer: PONV - lead trainer Female HX of Motion Sickness HX of N/V After Surgery Non-Smoker Duration of Surgery greater than 60 minutes Number of Risk Factors PONV Score Height & Weight Height & Weight: Anesthesia: Height & Weight Height 5 ft 3 in 12/11/24 13:34 Weight: 60.7 kg 12/12/24 05:02 Body Mass Index (BMI) 23.7 12/12/24 05:02 Respiratory Assessment Respiratory Assessment - lead trainer: Respiratory Tract Infection Hx - lead trainer Hx Respiratory Tract Infection No 06/12/21 02:55 STOP Sleep Apnea STOP Sleep Apnea - lead trainer: STOP Sleep Apnea - lead trainer Hx Hypertension Yes 12/04/24 20:21 Hx Sleep [...] Tobacco Use History Tobacco Use History - lead trainer: Tobacco Use History - lead trainer Tobacco Use Cigarettes 01/22/21 20:43 Smoking Status Heavy Smoker (>10/day) 12/06/24 05:11 Hx Tobacco Use Yes 12/04/24 20:21 Years Smoking Packs Smoked per Day Smoking Cessation Date was within the last 15 years Hx Smoking Cessation Date Hx Smoking Cessation No 12/04/24 20:21 Counseling Hematologic Medial History 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 Specify any problems Hx of Preganancy in last 3 No 12/04/24 20:21 Months Nurse Filling Out Transfusion MGROVE 12/04/24 20:21 & Questions: Date: 12/04/24 12/04/24 20:21 Time: 20:27 12/04/24 20:21 Patient unable to answer at this time (ie. confused, unrespo /Reproduction History /Reproductive History - lead trainer: /Reproductive Hx- lead trainer Hx Now Gestational Age (in weeks): EDC: [...] Allergy Other Verified 12/04/24 15:55 hydrocodone (From [place]) AdvReac Itching Verified 12/04/24 15:55 Family History [...] MD Cosigner Signature: Date CC: ~ Signed [facility]03-17-2025 Progress note [facility] Medical Records Department [address] [place] [address] Progress Note - Paint Stock Clerk 12/12/24 1000 MR#: [id number] Acct: [id number] Name: GRACIE BANUELOS Rep #:[id number] : 1965 59 From: Gonzalo Sebastian DO PCP: Dr. Misbah Elkins MD Status:ADM I N Location: [place] [address] Assessment & Plan Assessment/Plan (1) COPD with [...] medicationsas indicated. This note was generated with LinPrim dictation software. It may contain incorrectwords, spelling, [...] Affect: anxious Charges/Coding Visit Charges Inpatient E&M: 66800 Subs Hosp L2 12/12/24 1129 Cosigner Signature (if applicable): CC: ~ Signed [facility]03-16-2025 Progress note Author Anastacia [facility] Note Date/Time December 11, 2024 11: 50am [facility] Medical Records Department [address] [place] [address] Progress Note 12/11/24 1134 MR#: [id number] Acct: [id number] Name: GRACIE BANUELOS Rep #:[id number] : 1965 59 From: Anastacia Bonilla MD PCP: Dr. Misbah Elkins MD Status:ADM I N Location: [place] [address] Subjective Subjective Patient seen and examined. She [...] prophylaxis: lovenox Charges/Coding Visit Charges Inpatient E&M: 74527 Subs Hosp L2 12/11/24 1150 <Electronically signed by Anastacia Bonilla MD> Anastacia Bonilla MD Cosigner Signature (if applicable): CC: ~ Signed [facility] Work Phone: 1(481) 431-676703-16-2025 Progress note [facility] Medical Records Department [address] [place] [address] Progress Note 12/11/24 1134 MR#: [id number] Acct: [id number] Name: GRACIE BANUELOS Rep #:[id number] : 1965 59 From: Anastacia Bonilal MD PCP: Dr. Misbah Elkins MD Status:ADM I N Location: [place] [address] Subjective Subjective Patient seen and examined. She [...] prophylaxis: lovenox Charges/Coding Visit Charges Inpatient E&M: 12476 Subs Hosp L2 12/11/24 1150 Anastacia Bonilla MD Cosigner Signature (if applicable): CC: ~ Signed [facility]03-15-2025 Progress note Author Anastacia [facility] Note Date/Time December 10, 2024 12: 56pm [facility] Medical Records Department [address] [place] [address] Progress Note 12/10/24 1251 MR#: [id number] Acct: [id number] Name: GRACIE BANUELOS Rep #:[id number] : 1965 59 From: Anastacia Bonilla MD PCP: Dr. Misbah Elkins MD Status:ADM I N Location: [place] [address] Subjective Subjective Patient seen and examined. She [...] prophylaxis: lovenox Charges/Coding Visit Charges Inpatient E&M: 52165 Subs Hosp L2 12/10/24 1253 <Electronically signed by Anastacia Bonilla MD> Anastacia Bonilla MD Cosigner Signature (if applicable): CC: ~ Signed [facility] Work Phone: 1(177) 164-131903-15-2025 Progress note [facility] Medical Records Department [address] [place] [address] Progress Note 12/10/24 1251 MR#: [id number] Acct: [id number] Name: GRACIE BANUELOS Rep #:[id number] : 1965 59 From: Anastacia Bonilla MD PCP: Dr. Misbah Elkins MD Status:ADM I N Location: [place] [address] Subjective Subjective Patient seen and examined. She [...] prophylaxis: lovenox Charges/Coding Visit Charges Inpatient E&M: 84922 Subs Hosp L2 12/10/24 1256 Anastacia Bonilla MD Cosigner Signature (if applicable): CC: ~ Signed [facility]03-14-2025 Progress note Author Anastacia [facility] Note Date/Time December 09, 2024 4:3 3pm [facility] Medical Records Department [address] [facility] [place] [address] Progress Note 12/09/24 1351 MR#: [id number] Acct: [id number] Name: GRACIE BANUELOS Rep #:[id number] : 1965 59 From: Anastacia Bonilla MD PCP: Dr. Misbah Elkins MD Status:ADM I N Location: [place] [address] Subjective Subjective Patient seen and examined. She [...] (MDRD) Non-Af 78, BUN/Creatinine Ratio 40.8 H, Tcndlta129 H, Calcium 9.8 Micro: Microbiology 12/07/24 14:40 [...] prophylaxis: lovenox Charges/Coding Visit Charges Inpatient E&M: 41600 Subs Hosp L2 12/09/24 6234 <Electronically signed by Anastacia Bonilla MD> Anastacia Bonilla MD Cosigner Signature (if applicable): CC: ~ Signed [facility] Work Phone: 1(692) 597-427503-14-2025 Progress note [facility] Medical Records Department [address] [place] [address] Progress Note 12/09/24 1351 MR#: [id number] Acct: [id number] Name: GRACIE BANUELOS Rep #:[id number] : 1965 59 From: Anastacia Bonilla MD PCP: Dr. Misbah Elkins MD Status:ADM I N Location: [place] [address] Subjective Subjective Patient seen and examined. She [...] (MDRD) Non-Af 78, BUN/Creatinine Ratio 40.8 H, Eqepbri240 H, Calcium 9.8 Micro: Microbiology 12/07/24 14:40 [...] prophylaxis: lovenox Charges/Coding Visit Charges Inpatient E&M: 17547 Subs Hosp L2 12/09/24 1633 Anastacia Bonilla MD Cosigner Signature (if applicable): CC: ~ Signed [facility]03-14-2025 Progress note Author Gonzalo Sebastian [facility] Note Date/Time December 09, 2024 11: 16am [facility] Medical Records Department [address] [place] [address] Progress Note - Paint Stock Clerk 12/09/24 0809 MR#: [id number] Acct: [id number] Name: GRACIE BANUELOS Rep #:[id number] : 1965 59 From: Gonzalo Sebastian DO PCP: Dr. Misbah Elkins MD Status:ADM I N Location: [place] [address] Assessment & Plan Assessment/Plan (1) COPD with [...] medicationsas indicated. This note was generated with LinPrim dictation software. It may contain incorrectwords, spelling, [...] Affect: anxious Charges/Coding Visit Charges Inpatient E&M: 80367 Subs Hosp L2 12/09/24 1116 <Electronically signed by Gonzalo Sebastian DO> Cosigner Signature (if applicable): CC: ~ Signed [facility] Work Phone: 1(998) 661-331203-14-2025 Progress note [facility] Medical Records Department [address] [place] [address] Progress Note - Paint Stock Clerk 12/09/24 0809 MR#: [id number] Acct: [id number] Name: GRACIE BANUELOS Rep #:[id number] : 1965 59 From: Gonzalo Sebastian DO PCP: Dr. Misbah Elkins MD Status:ADM I N Location: [place] [address] Assessment & Plan Assessment/Plan (1) COPD with [...] medicationsas indicated. This note was generated with LinPrim dictation software. It may contain incorrectwords, spelling, [...] Affect: anxious Charges/Coding Visit Charges Inpatient E&M: 89509 Subs Hosp L2 12/09/24 1116 Cosigner Signature (if applicable): CC: ~ Signed [facility]03-13-2025 Progress note Author rYn Kahn [facility] Note Date/Time December 08, 2024 4:2 3pm [facility] Medical Records Department [address] [place] [address] Progress Note - Hospitalist 12/08/24 1620 MR#: [id number] Acct: [id number] Name: GRACIE BANUELOS Rep #:[id number] : 1965 59 From: Yrn Kahn DO PCP: Dr. Misbah Elkins MD Status:ADM I N Location: [place] [address] Reason for Visit Reason for Visit: Diagnoses [...] 35 minutes Charges/Coding Visit Charges Inpatient E&M: 14958 Subs Hosp L2 12/08/24 1623 <Electronically signed by Yrn Kahn DO> Cosigner Signature (if applicable): CC: ~ Signed [facility] Work Phone: 1(358) 481-285503-13-2025 Progress note [facility] Medical Records Department [address] [place] [address] Progress Note - Hospitalist 12/08/24 1620 MR#: [id number] Acct: [id number] Name: GRACIE BANUELOS Rep #:[id number] : 1965 59 From: Yrn Kahn DO PCP: Dr. Misbah Elkins MD Status:ADM I N Location: [place] [address] Reason for Visit Reason for Visit: Diagnoses [...] 35 minutes Charges/Coding Visit Charges Inpatient E&M: 20205 Subs Hosp L2 12/08/24 1622 Cosigner Signature (if applicable): CC: ~ Signed [facility]03-13-2025 Procedure note [facility] Speech Pathology [address] [place] [address] Modified Barium Swallow Study MR#: [id number] Acct: [id number] Name: GRACIE BANUELOS Rep #:[id number] : 1965 59 From: Maksim Ramos, [facility] Modified Barium Swallow Patient Information Study Date: [...] History: Pt presented to the ED at [facility] on 12/04/2024 with the chief complaint of [...] Result: 3= enters airways/above vocal folds/not ejected Appling Thick Liquid via small single sip: cup: [...] Status Active ST Patient: Active Contact Information [facility] Speech Therapy:: Maksim Up M.A. CCC-CRYSTAL LAPPER? Speech-Language Pathologist?? [facility] [address] [place] [address]? [email or web address]?? [phone] 12/08/24 Messi Duenas CCC-CRYSTAL LAPPER> Date/Time Maksim Up M.A., CCC-CRYSTAL LAPPER Co-Signature Required for all Medicare patients Date/Time Co-Signature CC: ~ [facility]03-13-2025 Progress note Author Gonzalo Sebastian [facility] Note Date/Time December 08, 2024 10: 27am [facility] Medical Records Department [address] [place] [address] Progress Note - Paint Stock Clerk 12/08/24 0944 MR#: [id number] Acct: [id number] Name: GRACIE BANUELOS Rep #:[id number] : 1965 59 From: Gonzalo Sebastian DO PCP: Dr. Misbah Elkins MD Status:ADM I N Location: [place] [address] Assessment & Plan Assessment/Plan (1) COPD with [...] medicationsas indicated. This note was generated with LinPrim dictation software. It may contain incorrectwords, spelling, [...] Affect: anxious Charges/Coding Visit Charges Inpatient E&M: 61232 Subs Hosp L2 12/08/24 1027 <Electronically signed by Gonzalo Sebastian DO> Cosigner Signature (if applicable): CC: ~ Signed [facility] Work Phone: 1(109) 175-384103-13-2025 Progress note [facility] Medical Records Department [address] [place] [address] Progress Note - Paint Stock Clerk 12/08/24 0944 MR#: [id number] Acct: [id number] Name: GRACIE BANUELOS Rep #:[id number] : 1965 59 From: Gonzalo Sebastian DO PCP: Dr. Misbah Elkins MD Status:ADM I N Location: [place] [address] Assessment & Plan Assessment/Plan (1) COPD with [...] medicationsas indicated. This note was generated with [employer] software. It may contain incorrectwords, spelling, and [...] Affect: anxious Charges/Coding Visit Charges Inpatient E&M: 29428 Subs Hosp L2 12/08/24 1027 Cosigner Signature (if applicable): CC: ~ Signed [facility]03-12-2025 Progress note Author Yrn Kahn [facility] Note Date/Time December 07, 2024 5:4 7pm [facility] Medical Records Department [address] [place] [address] Progress Note - Hospitalist 12/07/24 1746 MR#: [id number] Acct: [id number] Name: GRACIE BANUELOS Rep #:[id number] : 1965 59 From: Yrn Kahn DO PCP: Dr. Misbah Elkins MD Status:ADM I N Location: [place] [address] Reason for Visit Reason for Visit: Diagnoses [...] 35 minutes Charges/Coding Visit Charges Inpatient E&M: 06466 Subs Hosp L2 12/07/24 1747 <Electronically signed by Yrn Kahn DO> Cosigner Signature (if applicable): CC: ~ Signed [facility] Work Phone: 1(181) 816-639303-12-2025 Progress note [facility] Medical Records Department [address] [place] [address] Progress Note - Hospitalist 12/07/24 174 MR#: [id number] Acct: [id number] Name: GRACIE BANUELOS Rep #:[id number] : 1965 59 From: Yrn Kahn DO PCP: Dr. Misbah Elkins MD Status:ADM I N Location: [place] [address] Reason for Visit Reason for Visit: Diagnoses [...] 35 minutes Charges/Coding Visit Charges Inpatient E&M: 67668 Subs Hosp L2 12/07/24 6738 Cosigner Signature (if applicable): CC: ~ Signed [facility]03-12-2025 Progress note Author Gonzalo Sebastian [facility] Note Date/Time December 07, 2024 12: 23pm [facility] Medical Records Department [address] [place] [address] Progress Note - Paint Stock Clerk 12/07/24 0959 MR#: [id number] Acct: [id number] Name: GRACIE BANUELOS Rep #:[id number] : 1965 59 From: Gonzalo Sebastian DO PCP: Dr. Misbah Elkins MD Status:ADM I N Location: [place] [address] Assessment & Plan Assessment/Plan (1) COPD with [...] medicationsas indicated. This note was generated with LinPrim dictation software. It may contain incorrectwords, spelling, [...] (Auto) 88.4 H, Lymph % (Auto) 4.5L, [place] % (Auto) 6.0, Eos % (Auto) 0.0, [...] Affect: anxious Charges/Coding Visit Charges Inpatient E&M: 20138 Subs Hosp L2 12/07/24 1223 <Electronically signed by Gonzalo Sebastian DO> Cosigner Signature (if applicable): CC: ~ Signed [facility] Work Phone: 1(450) 433-639203-12-2025 Progress note [facility] Medical Records Department [address] [place] [address] Progress Note - Paint Stock Clerk 12/07/24 0959 MR#: [id number] Acct: [id number] Name: GRACIE BANUELOS Rep #:[id number] : 1965 59 From: Gonzalo Sebastian DO PCP: Dr. Misbah Elkins MD Status:ADM I N Location: [place] [address] Assessment & Plan Assessment/Plan (1) COPD with [...] medicationsas indicated. This note was generated with LinPrim dictation software. It may contain incorrectwords, spelling, [...] (Auto) 88.4 H, Lymph % (Auto) 4.5L, [place] % (Auto) 6.0, Eos % (Auto) 0.0, [...] Affect: anxious Charges/Coding Visit Charges Inpatient E&M: 43169 Subs Hosp L2 12/07/24 1223 Cosigner Signature (if applicable): CC: ~ Signed [facility]03-11-2025 Progress note Author Yrn Kahn [facility] Note Date/Time December 06, 2024 8:2 6pm [facility] Medical Records Department [address] [place] [address] Progress Note - Hospitalist 12/06/242023 MR#: [id number] Acct: [id number] Name: GRACIE BANUELOS Rep #:[id number] : 1965 59 From: Yrn Kahn DO PCP: Dr. Misbah Elkins MD Status:ADM I N Location: [place] [address] Reason for Visit Reason for Visit: Diagnoses [...] (Auto) 88.4 H, Lymph % (Auto) 4.5L, [place] % (Auto) 6.0, Eos % (Auto) 0.0, [...] 35 minutes Charges/Coding Visit Charges Inpatient E&M: 92523 Subs Hosp L2 12/06/242025 <Electronically signed by Yrn Kahn DO> Cosigner Signature (if applicable): CC: ~ Signed [facility] Work Phone: 1(390) 583-818803-11-2025 Progress note Author Yrn Kahn [facility] Note Date/Time December 06, 2024 8:2 4pm [facility] Medical Records Department [address] [place] [address] Progress Note - Hospitalist 12/05/241943 MR#: [id number] Acct: [id number] Name: GRACIE BANUELOS Rep #:[id number] : 1965 59 From: Yrn Kahn DO PCP: Dr. Misbah Elkins MD Status:ADM I N Location: [place] [address] Reason for Visit Reason for Visit: Diagnoses [...] 89.0 H, Lymph % (Auto) 5.1 L, [place] % (Auto) 4.0, Eos % (Auto) 0.1, [...] 50 minutes Charges/Coding Visit Charges Inpatient E&M: 08511 [facility] Hosp L3 12/06/242023 <Electronically signed by Yrn Kahn DO> Cosigner Signature (if applicable): CC: ~ Signed [facility] Work Phone: 1(707) 869-297303-11-2025 Progress note [facility] Medical Records Department [address] [place] [address] Progress Note - Hospitalist 12/06/242023 MR#: [id number] Acct: [id number] Name: GRACIE BANUELOS Rep #:[id number] : 1965 59 From: Yrn Kahn DO PCP: Dr. Misbah Elkins MD Status:ADM I N Location: [place] [address] Reason for Visit Reason for Visit: Diagnoses [...] (Auto) 88.4 H, Lymph % (Auto) 4.5L, [place] % (Auto) 6.0, Eos % (Auto) 0.0, [...] 35 minutes Charges/Coding Visit Charges Inpatient E&M: 02872 Subs Hosp L2 12/06/242025 Cosigner Signature (if applicable): CC: ~ Signed [facility]03-11-2025 Progress note [facility] Medical Records Department [address] [place] [address] Progress Note - Hospitalist 12/05/241943 MR#: [id number] Acct: [id number] Name: GRACIE BANUELOS #:[id number] : 1965 59 From: Yrn Kahn DO PCP: Dr. Misbah Elkins MD Status:ADM I N Location: [place] [address] Reason for Visit Reason for Visit: Diagnoses [...] 89.0 H, Lymph % (Auto) 5.1 L, [place] % (Auto) 4.0, Eos % (Auto) 0.1, [...] 50 minutes Charges/Coding Visit Charges Inpatient E&M: 48759 Subs Hosp L3 12/06/242023 Cosigner Signature (if applicable): CC: ~ Signed [facility]03-11-2025 Progress note Author Gonzalo Sebastian [facility] Note Date/Time December 06, 2024 11: 38am [facility] Medical Records Department [address] [place] [address] Progress Note - Paint Stock Clerk 12/06/24 1134 MR#: [id number] Acct: [id number] Name: GRACIE BANUELOS Rep #:[id number] : 1965 59 From: Gonzalo Sebastian DO PCP: Dr. Misbah Elkins MD Status:ADM I N Location: [place] [address] Assessment & Plan Assessment/Plan (1) COPD with [...] medicationsas indicated. This note was generated with LinPrim dictation software. It may contain incorrectwords, spelling, [...] (Auto) 88.4 H, Lymph % (Auto) 4.5L, [place] % (Auto) 6.0, Eos % (Auto) 0.0, [...] Affect: anxious Charges/Coding Visit Charges Inpatient E&M: 66952 Subs Hosp L2 12/06/24 1138 <Electronically signed by Gonzalo Sebastian DO> Cosigner Signature (if applicable): CC: ~ Signed [facility] Work Phone: 1(769) 560-760503-11-2025 Progress note [facility] Medical Records Department [address] [place] [address] Progress Note - Paint Stock Clerk 12/06/24 1134 MR#: [id number] Acct: [id number] Name: GRACIE BANUELOS Rep #:[id number] : 1965 59 From: Gonzalo Sebastian DO PCP: Dr. Misbah Elkins MD Status:ADM I N Location: [place] [address] Assessment & Plan Assessment/Plan (1) COPD with [...] medicationsas indicated. This note was generated with LinPrim dictation software. It may contain incorrectwords, spelling, [...] (Auto) 88.4 H, Lymph % (Auto) 4.5L, [place] % (Auto) 6.0, Eos % (Auto) 0.0, [...] Affect: anxious Charges/Coding Visit Charges Inpatient E&M: 71352 Subs Hosp L2 12/06/24 1135 Cosigner Signature (if applicable): CC: ~ Signed [facility]03-10-2025 Consult note Author Gonzalo Sebastian [facility] Note Date/Time December 05, 2024 1:2 4pm [facility] Medical Records Department [address] [place] [address] Consultation - Paint Stock Clerk 12/05/24 1314 MR#: [id number] Acct: [id number] Name: GRACIE BANUELOS Rep #:[id number] : 1965 59 From: Gonzalo Sebastian DO PCP: Dr. Misbah Elkins MD Status:ADM I N Location: [place] [address] Assessment & Plan Assessment/Plan (1) COPD with [...] should be noted that the patient had [facility] hospital admission in October 2022 in the setting of a panic attack with generalized anxiety disorder leading to acute decompensation in her respiratory status. 2. Chronic tobacco dependency/bipolar disorder/depression/anxiety/chronic pancreatitis Complicates care, management, recovery and prognosis. Continue home medicationsas indicated. This note was generated with [employer]IV[employer] Apparelation software. It may contain incorrectwords, spelling, and [...] felt as if she was being suffocated. [facility] Medical History Pancreatic stones HLD (hyperlipidemia) History [...] Allergy Other Verified 12/04/24 15:55 hydrocodone (From [place]) AdvReac Itching Verified 12/04/24 15:55 Family History [...] 80.5 H, Lymph % (Auto) 6.8 L, [place] % (Auto) 10.4 H, Eos % (Auto) [...] 89.0 H, Lymph % (Auto) 5.1 L, [place] % (Auto) 4.0, Eos % (Auto) 0.1, [...] No acute airspace abnormality. Emphysema. Reading Location: [facility] Chest CTA 12/04/24 17:50 IMPRESSION: 1. No [...] use of iterative reconstruction technique). Reading Location: [facility] Charges/Coding Visit Charges Inpatient E&M: 09587 Init Hosp L3 12/05/24 1324 <Electronically signed by Gonzalo Sebastian DO> Cosigner Signature (if applicable): CC: Dr. Misbah Elkins MD~ Signed [facility] Work Phone: 1(924) 707-582303-10-2025 Consult note [facility] Medical Records Department [address] [place] [address] Consultation - Paint Stock Clerk 12/05/24 1314 MR#: [id number] Acct: [id number] Name: GRACIE BANUELOS Rep #:[id number] : 1965 59 From: Gonzalo Sebastian DO PCP: Dr. Misbah Elkins MD Status:ADM I N Location: [place] [address] Assessment & Plan Assessment/Plan (1) COPD with [...] should be noted that the patient had [facility] hospital admission in October 2022 in the setting of a panic attack with generalized anxiety disorder leading to acute decompensation in her respiratory status. 2. Chronic tobacco dependency/bipolar disorder/depression/anxiety/chronic pancreatitis Complicates care, management, recovery and prognosis. Continue home medicationsas indicated. This note was generated with LinPrim dictation software. It may contain incorrectwords, spelling, [...] felt as if she was being suffocated. [facility] Medical History Pancreatic stones HLD (hyperlipidemia) History [...] Allergy Other Verified 12/04/24 15:55 hydrocodone (From [place]) AdvReac Itching Verified 12/04/24 15:55 Family History [...] anxious Lab / Micro Data 12/05/24 05:28 03/10/25 05:28 Labs: Laboratory Results - last 24 hr 12/04/24 16:22: WBC 14.1 H, RBC 5.24, Hgb 14.1, Hct 43.7, MCV 83.4, MCH 26.9 L, MCHC 32.3, RDW Std Deviation 44.6 H, RDW Coeff of Min 14.7 H, Plt Count 271, MPV10.2, Immature Gran % (Auto) 0.800, Neut % (Auto) 80.5 H, Lymph % (Auto) 6.8 L, [place] % (Auto) 10.4 H, Eos % (Auto) [...] 89.0 H, Lymph % (Auto) 5.1 L, [place] % (Auto) 4.0, Eos % (Auto) 0.1, [...] Location: [facility] Charges/Coding Visit Charges Inpatient E&M: 98528 Init Hosp L3 12/05/24 1324 Cosigner Signature (if applicable): CC: Dr. Misbah Elkins MD~ Signed [facility]03-10-2025 Telephone encounter Note* Telephone Encounter - Juan Senior APRN.CNP - 12/05/2024 10:49 AM EDT Called to follow up with patient after EUS on 12/01. No answer, left voicemail with call back number. [facility] Work Phone: [phone]) [phone] Miscellaneous Notes* Telephone Encounter - Juan Senior APRN.CNP - 12/05/2024 10:49 AM EDT Called to follow up with patient after EUS on 12/01. No answer, left voicemail with call back number. [facility] History and physical note Author Aleta Aguayo [facility] Note Date/Time December 04, 2024 9:09 pm [facility] Medical Records Department [address] [place] [address] H&P Exam - Hospitalist 12/04/24 1804 MR#: [id number] Acct: [id number] Name: GRACIE BANUELOS Rep #:[id number] : 1965 59 From: Aleta Aguayo DO PCP: Dr. Misbah Elkins MD Status:ADM I N Location: [place] [address] HPI - General General Date of Admission: 12/04/24 Date of Service: 12/04/24 Chief Complaint: Shortness of Breath HPI Narrative GRACIE BANUELOS, is a 59 F who presented to the ED at [facility] on 12/04/2024 with the chief complaint of SOB. Pt has a h/o chronic pancreatitis and had a pancreatic block done [facility] Thu of last week as [...] waiting abdominal pain despite procedure done at [facility] and has follow-up with them upcoming. She has followed up with pulmonary medicine here previously and her FEV1 on hermost recent PFTs is 33% predicted. Again she [...] emergency department request for admission was made. [facility] Medical History Pancreatic stones HLD (hyperlipidemia) History [...] Allergy Other Verified 12/04/24 15:55 hydrocodone (From [place]) AdvReac Itching Verified 12/04/24 15:55 Family History [...] 80.5 H, Lymph % (Auto) 6.8 L, [place] % (Auto) 10.4 H, Eos % (Auto) [...] follow-up after discharge Chronic pancreatitis -Follows at [facility] -Seeing pain management -Recommend outpatient follow-up as [...] of admission Charges/Coding Visit Charges Inpatient E&M: 59943 Init Hosp L2 12/04/243 <Electronically signed by Aleta Aguayo DO> Cosigner Signature (if applicable): CC: Dr. Misbah Elkins MD; Dr. Aleta Aguayo DO~ Signed [facility] Work Phone: 1(340) [phone] History and physical note [facility] Medical Records Department [address] [place] [address] H&P Exam - Hospitalist 12/04/24 1804 MR#: [id number] Acct: [id number] Name: GRACIE BANUELOS Rep #:[id number] : 1965 59 From: Aleta Aguayo DO PCP: Dr. Misbah Elkins MD Status:ADM I N Location: [place] [address] HPI - General General Date of Admission: 12/04/24 Date of Service: 12/04/24 Chief Complaint: Shortness of Breath HPI Narrative GRACIE BANUELOS, is a 59 F who presented to the ED at [facility] on 12/04/2024 with the chief complaint of SOB.Pt has a h/o chronic pancreatitis and had a pancreatic block done at [facility] Thu of last week as [...] still waiting abdominal pain despiteprocedure done at [facility] and has follow-up with them upcoming. She has followed up with pulmonary medicine here previously and [facility] predicted. Again she [...] emergency department request for admission was made. [facility] Medical History Pancreatic stones HLD (hyperlipidemia) History [...] Allergy Other Verified 12/04/24 15:55 hydrocodone (From [place]) AdvReac Itching Verified 12/04/24 15:55 Family History [...] 80.5 H, Lymph % (Auto) 6.8 L, [place] % (Auto) 10.4 H, Eos % (Auto) [...] of admission Charges/Coding Visit Charges Inpatient E&M: 04733 Init Hosp L2 12/04/242 Cosigner Signature (if applicable): CC: Dr. Misbah Elkins MD; Dr. Aleta Aguayo, DO~ Signed [facility]03-09-2025 Discharge summary Author Franco Inman [facility] Note Date/Time December 04, 2024 6:46 pm [facility] Medical Records Department [address] [place] [address] Emergency Department Summary 12/04/24 MR#: [id number] Acct: [id number] Name: GRACIE BANUELOS Rep #:[id number] : 1965 59 From: Franco Inman MD PCP: Dr. Misbah Elkins MD Status:ADM I N Location: [place] [address] HPI History of Present Illness Chief Complaint: [...] had a pancreatic block done at the [facility] was discharged the same day. She is [...] or Recent travel Recent Illness/Hospitalization: No PFSH [facility] Medical History Pancreatic stones HLD (hyperlipidemia) History [...] Allergy Other Verified 12/04/24 15:55 hydrocodone (From [place]) AdvReac Itching Verified 12/04/24 15:55 Family History [...] Back nontender. Moving all 4 extremities. Normal emergency veterinarian strength. Normal dorsi plantarflexion. Calves are nontender [...] 80.5 H Lymph % (Auto) 6.8 L [place] % (Auto) 10.4 H Eos % (Auto) [...] rate of 121. No acute signs of DC or ischemia. No dysrhythmia. Discharge Plan Dx/Rx/DC Orders Clinical Impression: Viral URI, COPD exacerbation, Hypoxia, Chronic pancreatitis Disposition Disposition: Acute Care Hospital [facility] What to do if you have Problems For any increased pain, shortness of breath, bleeding, nausea or vomiting, chestpain, or any unexpected problems, contact your Primary Care Provider. Call [facility] ([phone]) or report to the closest Emergency Room. Call 911 if necessary. 12/04/241845 <Electronically signed by Franco Inman MD> Cosigner Signature (if applicable): CC: Dr. Misbah Elkins MD ~ Signed [facility] Work Phone: [phone]) [phone] Evaluation note* Diagnosis Onset Date Resolution Status Admit Date Acute hypoxic respiratory failure acute December 04, 2024 6:03pm Pulmonary nodule acute November 6:03pm Stenosis of left subclavian artery acute December 04, 2024 6:03pm Chronic pancreatitis chronic Lino h 2024 6:03pm COPD with acute exacerbation chronic December 04, 2024 6:03pm [facility] Work Phone: [phone]) 577-403103-09-2025 Evaluation note* Diagnosis Onset Date Resolution Status [...] 2024 9:59am Anxiety and depression chronic [facility] 2024 9:59am Asthma chronic December 23 9:59am Chronic pancreatitis chronic [facility] h 2024 9:59am Chronic respiratory failure with hypoxia chronic December 23, 2024 9:59am COPD (chronic obstructive pulmonary disease) chronic December 23, 2 025 9:59am Smoking greater than 30 pack years chronic December 23, 2024 9:59am [facility] Work Phone: [phone]) [phone] Evaluation note* Diagnosis Onset Date Resolution Status [...] 2024 9:59am Anxiety and depression chronic Ma [facility] 2024 9:59am Asthma chronic December 23 [...] years chronic February 08, 2025 1 :07pm [facility] Work Phone: [phone] Evaluation note* Diagnosis Onset Date Resolution Status [...] 2024 9:59am Anxiety and depression chronic Ma [facility] 2024 9:59am Asthma chronic December 23 9:59am Chronic pancreatitis chronic [facility] h 2024 9:59am Chronic respiratory failure with hypoxia chronic December 23, 2024 9:59am COPD (chronic obstructive pulmonary disease) chronic December 23, 9:59am Smoking greater than 30 pack years [...] pack years chronic March 13, 2025 11:28pm [facility] Work Phone: [phone] Evaluation note* Diagnosis Onset Date Resolution Status [...] pack years chronic March 13, 2025 11:28pm [facility] Work Phone: [phone] Radiology Diagnostic study note [facility] Imaging Services [address] [place], [place] [address] CTA Chest W/WO Contrast MR#: [id number] Acct: [id number] Name: GRACIE BANUELOS Rep #: [id number] : 1965 F 59 From: Jay Juarez DO PCP: Dr. Misbah Elkins MD Status: ADM I N Study:CTA Chest W/WO Contrast Date of Exam: 12/04/24 Exam# [id number] Ordering Dr: Kaitlin Aguayo DO PROCEDURE: CTA [...] Dr. Misbah Elkins MD; Dr. Aleta Aguayo DO ~ Weather[place]: Signed [facility]03-09-2025 Discharge summary [facility] Medical Records Department [address] [place] [address] Emergency Department Summary 12/04/24 MR#: [id number] Acct: [id number] Name: GRACIE BANUELOS Rep #:[id number] : 1965 59 From: Franco Inman MD PCP: Dr. Misbah Elkins MD Status:ADM I N Location: [place] [address] HPI History of Present Illness Chief Complaint: [...] had a pancreatic block done at the [facility] was discharged the same day. Sheis on [...] or Recent travel Recent Illness/Hospitalization: No PFSH [facility] Medical History Pancreatic stones HLD (hyperlipidemia) History [...] 10 mg tablet 5 mg PO DAILY 04/30/24 Unkno wn History ipratropium 0.5 mg-albuterol 3 [...] Allergy Other Verified 12/04/24 15:55 hydrocodone (From [place]) AdvReac Itching Verified 12/04/24 15:55 Family History [...] Back nontender. Moving all 4 extremities. Normal emergency veterinarian strength. Normal dorsi plantarflexion. Calves are nontender [...] 80.5 H Lymph % (Auto) 6.8 L [place] % (Auto) 10.4 H Eos % (Auto) [...] No acute airspace abnormality. Emphysema. Reading Location: [facility] Chest x-ray, 2 views, AP and lateral, [...] rate of 121. No acute signs of DC or ischemia. No dysrhythmia. Discharge Plan Dx/Rx/DC Orders Clinical Impression: Viral URI, COPD exacerbation, Hypoxia, Chronic pancreatitis Disposition Disposition: Acute Care Hospital [facility] What to do if you have Problems For any increased pain, shortness of breath, bleeding, nausea or vomiting, chestpain, or any unexpected problems, contact your Primary Care Provider. Call [facility] ([phone]) or report tothe closest Emergency Room. Call 911 if necessary. 12/04/24 1846 Cosigner Signature (if applicable): CC: Dr. Misbah Elkins MD ~ Signed [facility]03-09-2025 Radiology Diagnostic study note [facility] Imaging Services [address] [place] [address] Chest PA and Lateral MR#: [id number] Acct: [id number] Name: GRACIE BANUELOS Rep #: [id number] : 1965 F 59 From: Jay Juarez DO PCP: Dr. Misbah Elkins MD Status: REG E R Study:Chest PA and Lateral Date of Exam: 12/04/24 Exam# [id number] Ordering Dr: Ema Inman MD PROCEDURE: CHEST PA AND LATERAL REASON FOR EXAM: Cough, hypoxia TECHNIQUE: Frontal and lateral views of the chest. COMPARISON: 01/02/2024 FINDINGS: Cardiomediastinal silhouette is within normal limits. No focal consolidation, sizeable pleural effusion or pneumothorax. Moderate emphysema. RAD/Chest PA and Lateral IMPRESSION: No acute airspace abnormality. Emphysema. Reading Location: [facility] CC: Dr. Misbah Elkins MD; Dr. Franco Inman MD ~ Weathercaster: Signed [facility]03-09-2025 Discharge summary Author Franco Inman [facility] Note Date/Time December 04, 2024 6:46 pm [facility] Medical Records Department [address] [place] [address] Emergency Department Summary 12/04/24 MR#: [id number] Acct: [id number] Name: GRACIE BANUELOS Rep #:[id number] : 1965 59 From: Franco Inman MD PCP: Dr. Misbah Elkins MD Status:ADM I N Location: [place] [address] HPI History of Present Illness Chief Complaint: [...] had a pancreatic block done at the [facility] was discharged the same day. She is [...] Allergy Other Verified 12/04/24 15:55 hydrocodone (From [place]) AdvReac Itching Verified 12/04/24 15:55 Family History [...] Back nontender. Moving all 4 extremities. Normal emergency veterinarian strength. Normal dorsi plantarflexion. Calves are nontender [...] 80.5 H Lymph % (Auto) 6.8 L [place] % (Auto) 10.4 H Eos % (Auto) [...] rate of 121. No acute signs of DC or ischemia. No dysrhythmia. Discharge Plan Dx/Rx/DC Orders Clinical Impression: Viral URI, COPD exacerbation, Hypoxia, Chronic pancreatitis Disposition Disposition: Acute Care Hospital [facility] What to do if you have Problems For any increased pain, shortness of breath, bleeding, nausea or vomiting, chestpain, or any unexpected problems, contact your Primary Care Provider. Call [facility] ([phone]) or report to the closest Emergency Room. Call 911 if necessary. 12/04/24 1846 <Electronically signed by Franco Inman MD> Cosigner Signature (if applicable): CC: Dr. Misbah Elkins MD ~ Signed [facility] Work Phone: [phone] 249-842403-06-2025 Telephone encounter Note* Telephone Encounter - Jane Farrell MD - 12/01/2024 11:58 AM EST Orders [facility]03-06-2025 Miscellaneous Notes* Telephone Encounter - Jane Farrell MD - 12/01/2024 11:58 AM EST Orders [facility] Nurse Note* Reshma Telles RN - 12/01/2024 [...] MATERIAL: Procedure Discharge Instructions REFERRAL (RECOMMENDATION): None [facility]03-06-2025 Nurse Note* Reshma Telles RN - 12/01/2024 [...] RN In Department: GASTROENTEROLOGY documented in [facility]25 NoteQ3 Patient Name: Gracie Banuelos Procedure Date: 12/01/2024 9:53 AM Date of : 1965 Admit Type: Outpatient Age: 59 Gender: Female Note Status: Finalized Attending MD: Jane Farrell MD, [id number] Procedure: Upper EUS Indications: Celiac plexus block [...] present medications. Procedure Code(s): --- Professional --- 86850, Esophagogastroduodenoscopy, flexible, transoral; with endoscopic ultrasound examination limited to the esophagus, stomach or duodenum, and adjacent structures Diagnosis Code(s): --- Professional --- K86.9, Disease of pancreas, unspecified K86.1, Other chronic pancreatitis R93.3, Abnormal findings on diagnostic imaging of other parts of digestive tract CPT copyright 2020 [employer]. All rights reserved. Attending Participation: I personally performed the entire procedure. Scope In: 10:14:38 AM Scope Out: 10:28:19 AM MD Jane Fields MD 12/01/2024 10:35:18 AM This report has been signed electronically by Jane Farrell MD Number of Addenda: 0 Note Initiated On: 12/01/2024 9:53 [id number] Patient Name: Gracie Banuelos Procedure Date: 12/01/2024 9:53 AM Date of : 1965 Admit Type: Outpatient Age: 59 Gender: Female Note Status: Finalized Attending MD: Jane Farrell MD, [id number] Procedure: Upper EUS Indications: Celiac plexus block [...] present medications. Procedure Code(s): --- Professional --- 49907, Esophagogastroduodenoscopy, flexible, transoral; with endoscopic ultrasound examination limited to the esophagus, stomach or duodenum, and adjacent structures Diagnosis Code(s): --- Professional --- K86.9, Disease of pancreas, unspecified K86.1, Other chronic pancreatitis R93.3, Abnormal findings on diagnostic imaging of other parts of digestive tract CPT copyright 2020 [employer]. All rights reserved. Attending Participation: I personally performed the entire procedure. Scope In: 10:14:38 AM Scope Out: 10:28:19 AM MD Jane Fields MD 12/01/2024 10:35:18 AM This report has been signed electronically by Jane Farrell MD Number of Addenda: 0 Note Initiated On: 12/01/2024 9:53 [facility]03-06-2025 Nurse Note* Kathie Dorantes, RN - 12/01/2024 9:48 AM EST PRE OP LEARNING ASSESSMENT PROCEDURE/SURGERY: GI PROCEDURES: EGD READINESS TO LEARN COGNITIVE ABILITY: Alert and oriented MOTIVATION TO LEARN: Eager FAMILY SUPPORT: High - Very involved in pt care PATIENT LEARNS BEST BY: Individual Instruction Verbal Instruction FACTORS AFFECTING LEARNING: None PHYSICAL LIMITATIONS AFFECTING LEARNING: None Electronically Signed By: Kathie Dorantes RN In Department: GASTROENTEROLOGY [facility]03-04-2025 NotePatient Outreach (INTMMN) GRACIE BANUELOS ([id number]) 1965 F Date Time Provider Department 11/29/24 MISBAH ELKINS INTMMN During your visit today, we [...] [E78.5] Order(s):LIPID PANEL BASIC [SQLIPB] Order #: [id number] FUTURE Prescriptions as of 12/02/2024 - pantoprazole [...] by mouth at bedtime as needed. - wkqdyg-rojofyas-qvwvtky (CREON 24) 24,000-76,000 -120,000 unit delayed release [...] stress female [N39.3] 11/24/2014 HPV test positive [[id number]] 11/24/2014 Alcohol dependence in remission (HCC) [F10.21] [...] bloating [R14.0] 01/10/2021 01/10/2021 Encounter Status:Closed by EPIC, PRODUSER on 12/02/24[facility] 11-25-2024 Telephone encounter Note* Telephone Encounter - Juan Bloom LPN - 11/25/2024 3:57 PM EST Spoke with Gracie, discussed that [facility] staff will be talking to patient in preoperative area and will give any medications IV to help with anxiety, patient understands and has no other questions. Juan Bloom LPN [facility] Work Phone: [phone]) 482-154902-28-2025 Miscellaneous Notes* Telephone Encounter - Juan Bloom [...] you do prescribe or if you won't [phone] (does not use MyChart) Lyric Yeung documented in this encounterCleveland Clinic [facility]02-28-2025 Telephone encounter Note * Telephone Encounter - [...] you do prescribe or if you won't [phone] (does not use MyChart) Lyric Yeung [facility]02-28-2025 Telephone encounter Note* Telephone Encounter - Raisa Jimenez RN - 11/25/2024 12:00 PM EST Spoke with pt and went over prep instructions, answering all her questions until pt was comfortableand verbalized understanding Raisa Jimenez MA [facility]02-28-2025 Miscellaneous Notes* Telephone Encounter - Raisa Jimenez RN - 11/25/2024 12:00 PM EST Spoke with pt and went over prep instructions, answering all her questions until pt was comfortableand verbalized understanding Raisa Jimenez MA documented in this encounterCleveland Clinic [facility]02-27-2025 Nurse Note* Carroll Leblanc RN - 11/24/2024 4:09 PM EST Attempted to reach the patient at the contact number that they provided [phone] (home) . 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 they must have a responsible adult [...] Number to call with questions or concerns [phone] Number to call to cancel their procedure [phone] Carroll Leblanc RN [facility]02-27-2025 Nurse Note* Carroll Leblanc RN - 11/24/2024 4:09 PM EST Attempted to reach the patient at the contact number that they provided [phone] (home) . 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 they must have a responsible adult [...] Number to call with questions or concerns [phone] Number to call to cancel their procedure [phone] Carroll Leblanc RN documented in this encounterCleveland Clinic [facility]02-24-2025 Telephone encounter Note * Telephone Encounter - [...] Phan RN November 21, 2024 2:14 PM [facility]02-24-2025 Miscellaneous Notes* Telephone Encounter - Mike Phan [...] 21, 2024 2:14 PM documented in this encounterCleveland Clinic [facility]02-12-2025 Telephone encounter Note * Telephone Encounter - Larry Hastings MA - 11/09/2024 11:38 AM EST Patient notified and verbalized understanding. Larry Hastings MA [facility]02-12-2025 Miscellaneous Notes* Telephone Encounter - Larry Hastings [...] back. Maribeth Owen LPN documented in this encounterCleveland Clinic [facility]02-12-2025 Telephone encounter Note * Telephone Encounter - Misbah Elkins MD - 11/09/2024 10:22 AM EST The medication Is for anxiety, and was the medication she requested. So please ask her to use it. Regards, Misbah Elkins MD [facility]02-12-2025 Telephone encounter Note* Telephone Encounter - Marisela Rico LPN - 11/09/2024 8:17 AM EST Called and updated patient, voiced understanding. Marisela Rico LPN November 09, 2024 8:18 AM [facility]02-12-2025 Miscellaneous Notes* Telephone Encounter - Marisela Rico LPN - 11/09/2024 8:17 AM EST Called and updated patient, voiced understanding. Marisela Rico LPN November 09, 2024 8:18 AM * Telephone Encounter - Marisela Rico LPN - 11/09/2024 8:10 AM EST ----- Message from Misbah Elkins MD sent at 11/08/2024 5:00 PM EST ----- Chest xr is normal . RegardsMisbah MD documented in this encounterCleveland Clinic [facility]02-12-2025 Telephone encounter Note * Telephone Encounter - Marisela Rico LPN - 11/09/2024 8:10 AM EST ----- Message from Misbah Elkins MD sent at 11/08/2024 5:00 PM EST ----- Chest xr is normal . Regards, Misbah Elkins MD [facility]02-11-2025 Telephone encounter Note* Telephone Encounter - Maribeth [...] and advise pt back. Maribeth Owen LPN [facility]02-10-2025 History of Present illness Narrative* Roland Camargo, RT(R) - 11/07/2024 3:00 PM EST Radiology [...] PATIENT PRESENTS WITH AN IMPLANTABLE OR ATTACHED EXOTIC DANCER: No RADIOLOGY DEPARTMENT: General X-ray: Exam(s) Completed: Chest X-Ray PERIPHERAL IV DATA: Not applicable SIGNED BY: RT Oneyda(Heath) November 07, 2024 3:11 PM documented in this encounterCleveland Clinic [facility]02-10-2025 NoteHNO ID: [id number] Author: ROLAND CAMARGO RT(R) Service: Radiology Author [...] PATIENT PRESENTS WITH AN IMPLANTABLE OR ATTACHED EXOTIC DANCER: No RADIOLOGY DEPARTMENT: General X-ray: Exam(s) Completed: Chest X-Ray PERIPHERAL IV DATA: Not applicable SIGNED BY: RT Oneyda(R) November 07, 2024 3:11 [facility]02-10-2025 NoteHNO ID: [id number] Author: MISBAH ELKINS MD Service: ? Author [...] anxiety and depression. She was admitted to [facility] from 01/01 to 01/04 for pneumonia and [...] times and is only getting Remeron from [facility]. She says she has panic and [...] Take 1 tablet by mouth once daily. dqjjpz-acjpilhe-kqcvold (CREON 24) 24,000-76,000 -120,000 unit delayed release capsule Take 3 capsules by mouth once daily. (Patient not taking: Reported on 11/02/2024) metoprolol tartrate, short acting (more content not included)...[facility]02-10-2025 History of Present illness Narrative* Misbah Elkins MD - 11/07/2024 2:01 PM EST BESSIE Bowman is a 59-year-old woman with a past medical history of hypertension, hyperlipidemia, alcohol use disorder with moderate dependence currently only using alcohol twice a month, alcohol hepatitis and pancreatitis, tobacco abuse disorder, pulmonary emphysema, lumbar disc disease with radiculopathy, anxiety and depression. She was admitted to [facility] from 01/01 to 01/04 for pneumonia and [...] Take 1 tablet by mouth once daily. aetzfy-xxopdpof-gbeszao (CREON 24) 24,000-76,000 -120,000 unit delayed release [...] FRONTAL/LAT Misbah Elkins MD documented in this encounterCleveland Clinic [facility]02-05-2025 Instructions* Patient Instructions* Juan Senior APRN.CNP - 11/02/2024 2:41 PM EST Schedule pain block Schedule appointment with pain management Small frequent meals, lean protein (chicken, fish, pork or turkey are preferred), low fat and high antioxidants [email or web address] for diet tips Follow up in 3-6 months documented in this encounterCleveland Clinic [facility]02-05-2025 History of Present illness Narrative* Juan Senior [...] muscles on the left is partially imaged. [facility] 08/15/2024 HPI Gracie [...] shortness of breath all improving. Goes to [facility] with next routine exam in September. [...] and nausea. Denies anyvomiting or bowel changes. [facility] 05/27/2022 HPI Gracie Banuelos [...] 02, 2024 12:34 PM documented in this encounterCleveland Clinic [facility]02-05-2025 NoteHNO ID: [id number] Author: JUAN SENIOR APRN.CNP Service: ? Author Type: Nurse Practitioner Type: Progress Notes Filed: 11/03/2024 10:01 Note Text: New Patient/Consult REASON FOR VISIT Gracei Banuelos is a 59 year old female [...] on the left is partially imaged. [facility] 08/15/2024 HPI Gracie Banuelos [...] shortness of breath all improving. Goes to [facility] with next routine exam in September. [...] Denies any vomiting or bowel changes. [facility] 05/27/2022 BESSIE Gracie Banuelos is a 57 year old [...] Oct 2019 SYMPTOMS History (more content not included)...[facility]01-31-2025 Telephone encounter Note* Telephone Encounter - [...] by mouth once daily. Mihaela Cheng RN [facility]01-31-2025 Miscellaneous Notes* Telephone Encounter - Mihaela Cheng [...] daily. Mihaela Cheng RN documented in this encounterCleveland Clinic [facility]11-26-2024 History of Present illness Narrative* Reef Nadeen Duran RT(Heath) - 08/23/2024 9:20 AM EST Radiology Service [...] PATIENT PRESENTS WITH AN IMPLANTABLE OR ATTACHED EXOTIC DANCER: No ALLERGIES: Reviewed and unchanged CONTRAST ALLERGY: [...] DEPARTMENT: CT; Exam(s) Completed: Abdomen/Pelvis SIGNATURE: RT Isiah(Heath) PATIENT NAME: Gracie Banuelos DATE: August 23, 2024 TIME: 10:05 AM documented in this encounterCleveland Clinic [facility]11-26-2024 NoteHNO ID: [id number] Author: NADEEN BOBBY RT(R) Service: ? Author Type: Facility Administrator Type: Progress Notes Filed: 08/23/2024 10:05 Note [...] PATIENT PRESENTS WITH AN IMPLANTABLE OR ATTACHED EXOTIC DANCER: No ALLERGIES: Reviewed and unchanged CONTRAST ALLERGY: [...] Completed: Abdomen/Pelvis SIGNATURE: RT Isiah(R) PATIENT NAME: rGacie Banuelos DATE: August 23, 2024 TIME: 10:05 [facility]11-22-2024 Telephone encounter Note* Telephone Encounter - Maribeth Owen LPN - 08/19/2024 11:35 AM EST Pt called in to reports she is still getting the Lexapro in her packs. I called [facility] and they will pick her packs up today and remove the Lexapro and then deliver back to pt today. Pt notified. Maribeth Owen LPN [facility]11-22-2024 Miscellaneous Notes* Telephone Encounter - Maribeth Owen LPN - 08/19/2024 11:35 AM EST Pt called in to reports she is still getting the Lexapro in her packs. I called [facility] and they will pick her packs up today and remove the Lexapro and then deliver back to pt today. Pt notified. Maribeth Owen LPN documented in this encounterCleveland Clinic [facility]11-20-2024 Telephone encounter Note * Telephone Encounter - Soila Easton APRN.CNP - 08/17/2024 7:19 AM EST PDMP website checked and validated. All prescriptions have been APPROPRIATELY filled. No suspiciousactivity was identified. 08/17/2024 by Soila Easton APRN.CNP [facility]11-20-2024 Miscellaneous Notes* Telephone Encounter - Soila Easton [...] 16, 2024 9:30 AM documented in this encounterCleveland Clinic [facility]11-19-2024 Telephone encounter Note * Telephone Encounter - [...] Pennington LPN August 16, 2024 9:30 AM [facility]11-18-2024 NoteHNO ID: [id number] Author: SOILA EASTON APRN.BOX TOE MAKER Service: ? Author Type: Nurse Practitioner Type: [...] shortness of breath all improving. Goes to [facility] with next routine exam in September. [...] airways disease (HCC) Alcohol dependence in remission ([facility]) 07/10/2015 Alcohol use disorder 08/27/2017 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 pancreatitis Alcoholic hepatitis 05/18/2012 Alcoholic liver disease (HCC) 11/16/2013 Anemia Anxiety with depression Asthma Chronic hypoxemic respiratory failure (HCC) COPD (chronic obstructive pulmonary disease) ([facility]) 05/25/2012 DDD (degenerative disc disease), cervical 09/03/2018 [...] Stage 3 severe COPD by GOLD classification ([facility]) 2018 Tobacco use greater than 30 years [...] Take 1 tablet by mouth once daily. fvrxdo-pwbbhhdy-tyugssb (CREON 24) 24,000-76,000 -120,000 unit delayed release [...] 200 mg capsule Take (more content not included)...[facility]11-18-2024 History of Present illness Narrative* Soila Easton APRN.BOX TOE MAKER - 08/15/2024 11:36 AM EST CC: Patient [...] shortness of breath all improving. Goes to [facility] with next routine exam in September. [...] Take 1 tablet by mouth once daily. ejqzdr-tbozdaxc-ofkcncs (CREON 24) 24,000-76,000 -120,000 unit delayed release [...] plan. Soila Easton APRN.CNP documented in this encounterCleveland Clinic [facility]11-14-2024 Telephone encounter Note * Telephone Encounter - Eva Martines RN - 08/11/2024 3:26 PM EST Patient notified of results and provider's instructions. Patient verbalizes understanding. Eva Martines RN [facility]11-14-2024 Miscellaneous Notes* Telephone Encounter - Eva Martines [...] follow up appointment. Thank you Soila Easton APRN.BOX TOE MAKER documented in this encounterCleveland Clinic [facility]11-14-2024 Telephone encounter Note * Telephone Encounter - Maribeth Owen LPN - 08/11/2024 3:21 PM EST .Left a message for pt to call the office and ask to speak to a nurse. Maribeth Owen LPN [facility]11-14-2024 Telephone encounter Note* Telephone Encounter - Maribeth Owen LPN - 08/11/2024 3:21 PM EST ----- Message from Soila Easton APRN.CNP sent at 08/11/2024 3:16 PM EST ----- No pneumonia on chest xray. Continue current treatment and upcoming follow up appointment. Thank you Soila Easton APRN.BOX TOE MAKER [facility]11-13-2024 History of Present illness Narrative* Contreras Mack, [...] PATIENT PRESENTS WITH AN IMPLANTABLE OR ATTACHED EXOTIC DANCER: No RADIOLOGY DEPARTMENT: General X-ray: Exam(s) Completed: Chest X-Ray PERIPHERAL IV DATA: Not applicable SIGNED BY: RT Cristy(Heath) August 10, 2024 5:40 PM documented in this encounterCleveland Clinic [facility]11-13-2024 NoteHNO ID: [id number] Author: CONTRERAS MACK RT(R) Service: ? Author Type: Facility Administrator Type: Progress Notes Filed: 08/10/2024 17:47 Note Text: Radiology Service Progress Note PATIENT NAME: Gracie Baunelos DATE OF SERVICE: August 10, 2024 TIME: [...] PATIENT PRESENTS WITH AN IMPLANTABLE OR ATTACHED EXOTIC DANCER: No RADIOLOGY DEPARTMENT: General X-ray: Exam(s) Completed: Chest X-Ray PERIPHERAL IV DATA: Not applicable SIGNED BY: RT Cristy(Heath) August 10, 2024 5:40 PMCHock[facility]24 NoteHNO ID: [id number] Author: SOILA EASTON APRN.BOX TOE MAKER Service: ? Author Type: Nurse Practitioner Type: [...] airways disease (HCC) Alcohol dependence in remission ([facility]) 07/10/2015 Alcohol use disorder 08/27/2017 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 pancreatitis [...] Stage 3 severe COPD by GOLD classification ([facility]) 2018 Tobacco use greater than 30 years [...] Take 1 tablet by mouth once daily. psyvmx-zpxraixv-mfkinog (CREON 24) 24,000-76,000 -120,000 unit delayed release [...] daily with meals. luciano (more content not included)...[facility]11-13-2024 History of Present illness Narrative* RustamSoilaUNA.BOX TOE MAKER - 08/10/2024 5:05 PM EST CC: Patient [...] Take 1 tablet by mouth once daily. nrlgri-cgeqizfj-oiaiyqs (CREON 24) 24,000-76,000 -120,000 unit delayed release [...] plan. Soila Easton APRN.CNP documented in this encounterCleveland Clinic [facility]11-13-2024 Telephone encounter Note * Telephone Encounter - [...] urine sample to test for a UTI. [facility]11-13-2024 Miscellaneous Notes* Telephone Encounter - Caroline Miller [...] that in the next visit. RegardsMisbah MD documented in this encounterCleveland Clinic [facility]11-13-2024 Telephone encounter Note * Telephone Encounter - Caroline Miller RN - 08/10/2024 1:14 PM EST ----- Message from Misbah Elkins MD sent at 08/10/2024 12:44 PM EST ----- Gracie your while count always tends to be high, We will evaluate that in the next visit. RegardsMisbah MD [facility]11-08-2024 Instructions* Patient Instructions* Misbah Elkins MD - [...] Sleep Foundation at [email or web address]. documented in this encounterCleveland Clinic [facility]11-08-2024 History of Present illness Narrative* Misbah Elkins MD - 08/05/2024 3:40 PM EST BESSIE Bowman is a 59-year-old woman with a past medical history of hypertension, hyperlipidemia, alcohol use disorder with moderate dependence currently only using alcohol twice a month, alcohol hepatitis and pancreatitis, tobacco abuse disorder, pulmonary emphysema, lumbar disc disease with radiculopathy, anxiety and depression. She was admitted to [facility] from 01/01 to 01/04 for pneumonia and [...] Stage 3 severe COPD by GOLD classification ([facility]) 2018 Tobacco use greater than 30 years [...] Take 1 tablet by mouth once daily. ndtfxi-kfqifftf-lcrumlx (CREON 24) 24,000-76,000 -120,000 unit delayed release [...] DIFFERENTIAL Misbah Elkins MD documented in this encounterCleveland Clinic [facility]11-08-2024 NoteHNO ID: [id number] Author: MISBAH ELKINS MD Service: ? Author [...] anxiety and depression. She was admitted to [facility] from 01/01 to 01/04 for pneumonia and [...] Stage 3 severe COPD by GOLD classification ([facility]) 2018 Tobacco use greater than 30 years [...] EGD EUS 12/05/2019 mil (more content not included)...[facility]10-11-2024 Telephone encounter Note* Telephone Encounter - Soila Easton APRN.CNP - 07/08/2024 2:43 PM EDT PDMP website checked and validated. All prescriptions have been APPROPRIATELY filled. No suspiciousactivity was identified. 07/08/2024 by Soila Easton APRN.CNP [facility]10-11-2024 Miscellaneous Notes* Telephone Encounter - Soila Easton APRN.CNP - 07/08/2024 2:43 PM EDT PDMP website checked and validated. All prescriptions have been APPROPRIATELY filled. No suspiciousactivity was identified. 07/08/2024 by Soila Easton APRN.CNP * Telephone Encounter [...] 08, 2024 1:52 PM documented in this encounterCleveland Clinic [facility]10-11-2024 Telephone encounter Note * Telephone Encounter - [...] Phan RN July 08, 2024 1:52 PM [facility]09-24-2024 Telephone encounter Note* Telephone Encounter - Larry Hastings MA - 06/21/2024 2:32 PM EDT Patient no showed to today's appt. Letter sent. Larry Hastings MA [facility]09-24-2024 Miscellaneous Notes* Telephone Encounter - Larry Hastings MA - 06/21/2024 2:32 PM EDT Patient no showed to today's appt. Letter sent. Larry Hastings MA documented in this encounterCleveland Clinic [facility]09-19-2024 Telephone encounter Note * Telephone Encounter - Soila Easton APRN.CNP - 06/16/2024 12:39 PM EDT PDMP website checked and validated. All prescriptions have been APPROPRIATELY filled. No suspiciousactivity was identified. 06/16/2024 by Soila Easton APRN.CNP [facility]09-19-2024 Miscellaneous Notes* Telephone Encounter - Soila Easton [...] 15, 2024 2:33 PM documented in this encounterCleveland Clinic [facility]09-18-2024 Telephone encounter Note * Telephone Encounter - [...] Velazquez LPN June 15, 2024 5:21 PM [facility]09-18-2024 Telephone encounter Note* Telephone Encounter - Holly [...] Holly Jensen June 15, 2024 2:33 PM [facility]08-21-2024 NoteHNO ID: [id number] Author: MISBAH ELKINS MD Service: ? Author [...] anxiety and depression. She was admitted to [facility] from 01/01 to 01/04 for pneumonia and [...] Stage 3 severe COPD by GOLD classification ([facility]) No date: Tobacco use Comment: greater than [...] once daily. simvastatin (ZOC (more content not included)...[facility] 05-18-2024 History of Present illness Narrative* Misbah Elkins MD - 05/18/2024 4:37 PM EDT BESSIE Bowman is a 59-year-old woman with a past medical history of hypertension, hyperlipidemia, alcohol use disorder with moderate dependence currently only using alcohol twice a month, alcohol hepatitis and pancreatitis, tobacco abuse disorder, pulmonary emphysema, lumbar disc disease with radiculopathy, anxiety and depression. She was admitted to [facility] from 01/01 to 01/04 for pneumonia and [...] Asthma No date: Chronic hypoxemic respiratory failure ([facility]) 05/25/2012: COPD (chronic obstructive pulmonary disease) ([facility]) 09/03/2018: DDD (degenerative disc disease), cervical No [...] to infectious organism 01/07/2019: Severe protein-calorie malnutrition ([facility]) 2018: Stage 3 severe COPD by GOLD classification ([facility]) No date: Tobacco use Comment: greater than [...] tablet by mouth two times a day. xghdrn-ghbmfdzr-zefxjfs (CREON 24) 24,000-76,000 -120,000 unit delayed release [...] 577.1, ICD10: K86.0 Refilled her Creon - ZBYFQC-TAUBZOQN-HXBQBCM 24,000-76,000-120,000 UNIT CAPSULE,DELAYED REL 3. Chronic obstructive [...] TABLET Misbah Elkins MD documented in this encounterCleveland Clinic [facility]08-19-2024 Telephone encounter Note * Telephone Encounter - Maribeth Owen LPN - 05/16/2024 7:28 PM EDT Spoke with pt and apt booked for tomorrow. Pt not out of medication. Pt will discuss medication below at apt. Maribeth Owen LPN [facility]08-19-2024 Miscellaneous Notes* Telephone Encounter - Maribeth Owen [...] patient via phone and does not use [employer]. Patients phone has restriction on it and can not receive call. Patient has an appointment with Soila Easton on 05/23/24 if unable to contact patient sooner. Marisela Rico LPN May 13, 2024 3:59 PM * Telephone Encounter - Misbah Elkins MD - 05/13/2024 12:34 PM EDT Please set gracie to see me on Thursday to discuss this refill Regards, Misbah Elkins MD * Telephone Encounter [...] 13, 2024 12:12 PM documented in this encounterCleveland Clinic [facility]08-19-2024 Telephone encounter Note * Telephone Encounter - Susy Barnes LPN - 05/16/2024 6:57 PM EDT Unable to reach Patient, phone has restrictions and can not receive call. Called Domonique/Sister, asking for Patient to call & speak to nurse. Susy Barnes LPN [facility]08-16-2024 Telephone encounter Note* Telephone Encounter - Marisela Rico LPN - 05/13/2024 3:58 PM EDT Unable to contact patient via phone and does not use Mapp[employer]. Patients phone has restriction on it and can not receive call. Patient has an appointment with Soila Easton on 05/23/24 if unable to contact patient sooner. Marisela Rico LPN May 13, 2024 3:59 PM [facility]08-16-2024 Telephone encounter Note* Telephone Encounter - Misbah Elkins MD - 05/13/2024 12:34 PM EDT Please set gracie to see me on Thursday to discuss this refill Regards, Misbah Elkins MD [facility]08-16-2024 Telephone encounter Note* Telephone Encounter - Maribeth [...] Owen LPN May 13, 2024 12:12 PM [facility]08-07-2024 NotePatient Outreach (INTMMN) GRACIE BANUELOS ([id number]) 1965 F [place]* Date Time Provider [...] Date Reviewed: 01/25/2024 Reviewed by: Tara Youngblood APRN.BOX TOE MAKER - Fully Assessed Visit Diagnosis:Encounter for screening mammogram for breast cancer [Z12.31] Order(s):SIMI SCREENING W CYNTHIA [0908110] Order #: [id number] FUTURE Prescriptions as of 05/09/2024 - hydrOXYzine [...] by mouth two times a day. - pvpsur-cgujkcug-zkpaeaf (CREON 24) 24,000-76,000 -120,000 unit delayed release [...] stress female [N39.3] 11/24/2014 HPV test positive [TDV0157] 11/24/2014 Alcohol dependence in remission (HCC) [F10.21] [...] bloating [R14.0] 01/10/2021 01/10/2021 Encounter Status:Closed by DanceJam, PRODUSER on 05/09/24[facility] 04-15-2024 Telephone encounter Note* Telephone Encounter - Soila Easton APRN.CNP - 04/15/2024 2:36 PM EDT PDMP website checked and validated. All prescriptions have been APPROPRIATELY filled. No suspiciousactivity was identified. 04/15/2024 by Soila Easton APRN.CNP [facility]07-19-2024 Miscellaneous Notes* Telephone Encounter - Soila Easton APRN.CNP - 04/15/2024 2:36 PM EDT PDMP website checked and validated. All prescriptions have been APPROPRIATELY filled. No suspiciousactivity was identified. 04/15/2024 by Soila Easton APRN.IGOR * Telephone Encounter - Mike Phan RN [...] 15, 2024 1:32 PM documented in this encounterC[facility] Clinic [facility]24 Telephone encounter Note * Telephone Encounter - [...] Phan RN April 15, 2024 1:32 PM [facility]06-21-2024 Telephone encounter Note* Telephone Encounter - Annette Hayes APRN.CNP - 03/18/2024 3:09 PM EDT PDMP website checked and validated. All prescriptions have been APPROPRIATELY filled. No suspiciousactivity was identified. 03/18/2024 by Annette Hayes APRN.CNP [facility]06-21-2024 Miscellaneous Notes* Telephone Encounter - Annette Hayes [...] times a day for 30 days. Tasneem Cisneros [facility] March 18, 2024 2:51 PM documented in this encounterC[facility] Clinic [facility]06-[facility]-2024 Telephone encounter Note * Telephone Encounter - Med JensenTasneem - 03/18/2024 2:51 PM EDT Prescription Refill [...] times a day for 30 days. Tasneem Cisneros [facility] March 18, 2024 2:51 PM [facility]06-17-2024 Telephone encounter Note* Telephone Encounter - Eda Shine LPN - 03/14/2024 2:02 PM EDT Phoned patient and left message that she should have enough medication to get her to her appointment next week with Soila Easton on 03/18/24. Eda Shine LPN [facility]06-17-2024 Miscellaneous Notes* Telephone Encounter - Eda Shine [...] Pennington LPN - 03/14/2024 11:24 AM EDT [facility] calls for a refill for pt. [...] 14, 2024 11:25 AM documented in this encounterC[facility] Clinic [facility]06-[facility]-2024 Telephone encounter Note * Telephone Encounter - Julissa Burgos MD - 03/14/2024 12:53 PM EDT Last RX 02/25 for 28 day supply so should have enough to last till 03/25 Has 03/18 appointment with Soila, so should be able to get refills next week [facility] Work Phone: [phone] Telephone encounter Note* Telephone Encounter - Catherine Pennington LPN - 03/14/2024 11:24 AM EDT [facility] calls for a refill for pt. [...] two times a day for 30 days. Ctaherine Pennington LPN March 14, 2024 11:25 AM [facility]05-31-2024 Telephone encounter Note* Telephone Encounter - Annette Hayes APRN.CNP - 02/26/2024 3:25 PM EDT PDMP website checked and validated. All prescriptions have been APPROPRIATELY filled. No suspiciousactivity was identified. 02/26/2024 by Annette Hayes APRN.CNP [facility]05-31-2024 Miscellaneous Notes* Telephone Encounter - Annette Hayes APRN.CNP - 02/26/2024 3:25 PM EDT PDMP website checked and validated. All prescriptions have been APPROPRIATELY filled. No suspiciousactivity was identified. 02/26/2024 by Annette Hayes APRN.CNP * Telephone Encounter - Kiara Miramontes LPN - 02/26/2024 2:31 PM EDT Patient is now using [facility]. [employer] is unable to transfer this from [facility] since it is a controlled medication. Patient [...] you. Kiara Miramontes LPN. documented in this encounterC[facility] Clinic [facility]05-31-2024 Telephone encounter Note * Telephone Encounter - Kiara Miramontes LPN - 02/26/2024 2:31 PM EDT Patient is now using [facility]. [employer] is unable to transfer this from [facility] since it is a controlled medication. Patient [...] Please advise. Thank you. Kiara Miramontes LPN. [facility]05-24-2024 Telephone encounter Note* Telephone Encounter - Soila Easton APRN.CNP - 02/19/2024 2:30 PM EDT PDMP website checked and validated. All prescriptions have been APPROPRIATELY filled. No suspiciousactivity was identified. 02/19/2024 by Soila Easton APRN.CNP [facility]05-24-2024 Miscellaneous Notes* Telephone Encounter - Soila Easton APRN.CNP - 02/19/2024 2:30 PM EDT PDMP website checked and validated. All prescriptions have been APPROPRIATELY filled. No suspiciousactivity was identified. 02/19/2024 by Soila Easton APRN.BOX TOE MAKER * Telephone Encounter - Eda Shine LPN [...] Thank you. Pily Dewitt. documented in this encounterC[facility]05-[facility]-2024 Telephone encounter Note * Telephone Encounter - [...] Please advise. Thank you. Eda Shine LPN. [facility]05-24-2024 Telephone encounter Note* Telephone Encounter - Pily [...] 03/18/2024 Please advise. Thank you. Pily Dewitt. [facility]05-09-2024 Miscellaneous Notes* Telephone Encounter - Soila Easton APRN.CNP - 02/04/2024 12:37 PM EDT Noted Soila Easton APRN.CNP * Telephone Encounter - Mihaela Cheng RN - 02/04/2024 9:19 AM EDT FYI: Patient calling in to update PCP that she was seen by Dr. Owen Del Rosario at [facility] recently and diagnosed with gout in her right foot. She has been prescribed medication/treatment and will be following up with them next week. Patient states if PCP team needs any of these records, to contact DR. Del Rosario's office for them. Patient will be seeing Soila Easton CNP in February. Mihaela Cheng RN documented in this encounterCleveland Clinic [facility]05-09-2024 Telephone encounter Note * Telephone Encounter - Soila Easton APRN.CNP - 02/04/2024 12:37 PM EDT Noted Soila Easton APRN.CNP [facility]05-09-2024 Telephone encounter Note* Telephone Encounter - Mihaela Cheng RN - 02/04/2024 9:19 AM EDT FYI: Patient calling in to update PCP that she was seen by Dr. Owen Del Rosario at [facility] recently and diagnosed with gout in her right foot. She has been prescribed medication/treatment and will be following up with them next week. Patient states if PCP team needs any of these records, to contact DR. Del Rosario's office for them. Patient will be seeing Soila Easton CNP in February. Mihaela Cheng RN [facility]05-01-2024 Telephone encounter Note* Telephone Encounter - María Elena Sheth RN - 01/27/2024 6:04 PM EDT Spoke with patient. Given message from provider's office. Patient verbalizes understanding. María Elena Sheth RN [facility]05-01-2024 Miscellaneous Notes* Telephone Encounter - María Elena Sheth RN - 01/27/2024 6:04 PM EDT Spoke with patient. Given message from provider's office. Patient verbalizes understanding. María Elena Sheth RN * Telephone Encounter - Tara Youngblood APRN.CNP - 01/27/2024 5:19 PM EDT Only if symptoms do not resolve. Thank you, Tara Youngblood APRN.CNP * Telephone Encounter - Pam Jones LPN [...] these records. Thank you, Tara Youngblood APRN.CNP documented in this encounterCleveland Clinic [facility]05-01-2024 Telephone encounter Note * Telephone Encounter - Tara Youngblood APRN.CNP - 01/27/2024 5:19 PM EDT Only if symptoms do not resolve. Thank you, Tara Youngblood APRN.BOX TOE MAKER [facility]05-01-2024 Telephone encounter Note* Telephone Encounter - Pam Jones LPN - 01/27/2024 5:13 PM EDT T/C to pt gave information provided. Pt voices understanding. She asks when done with atb . Should she come back to make sure its resolved? Placed records in your basket of pulmonary visit. [facility]05-01-2024 Telephone encounter Note* Telephone Encounter - Tara [...] weget these records. Thank you, Tara Youngblood APRN.BOX TOE MAKER [facility]04-29-2024 History of Present illness Narrative* Sonja Victor, RT(R) - 01/25/2024 2:00 PM EDT Radiology [...] PATIENT PRESENTS WITH AN IMPLANTABLE OR ATTACHED EXOTIC DANCER: No RADIOLOGY DEPARTMENT: General X-ray: Exam(s) Completed: Chest X-Ray PERIPHERAL IV DATA: Not applicable SIGNED BY: RT Channing(R) January 25, 2024 2:07 PM documented in this encounterCleveland Clinic [facility]04-29-2024 History of Present illness Narrative* Tara Youngblood APRN.BOX TOE MAKER - 01/25/2024 1:20 PM EDT Chief Complaint Patient presents with: ER follow up HPI Gracie Banuelos is a 58 year old female who presents here today for Above Complaints. Gracie is an established patient of Dr. Satnam MD. She is a new patient to me today. Curiously computer system was down at time of this appointment. No access to chart during assessment/exam. Pt was aware of this prior to appointment and still agreed to appointment. Concerns today... ER follow-up --- [facility] ER visit on 01/18 d/t R foot [...] not cleared up from prior admission at [facility] from 12/31-01/04. Stillvery wheezy and SOB. Was [...] airways disease (HCC) Alcohol dependence in remission ([facility]) 07/10/2015 Alcohol use disorder 08/27/2017 Alcohol-induced pancreatitis Alcoholic hepatitis 05/18/2012 Alcoholic liver disease (HCC) 11/16/2013 Anemia Anxiety with depression Asthma Chronic hypoxemic respiratory failure (HCC) COPD (chronic obstructive pulmonary disease) ([facility]) 05/25/2012 DDD (degenerative disc disease), cervical 09/03/2018 [...] Stage 3 severe COPD by GOLD classification ([facility]) 2018 Tobacco use greater than 30 years [...] tablet by mouth two times a day. nruxjc-tnxewwxo-crogtdv (CREON 24) 24,000-76,000 -120,000 unit delayed release [...] look for resolution of prior pneumonia from [facility] admission 3 weeks ago. Concern d/t ongoing [...] suspiciousactivity was identified. 01/25/2024 by Tara Youngblood APRN.BOX TOE MAKER RTO as needed. Prescription instructions reviewed with patient as applicable. Potential red flag symptoms discussed with the patient. Reviewed appropriate action plan to take if red flag symptoms occur. Patient agreeable to treatment plan. Tara Castellanos APRN.BOX TOE MAKER [address] [place] [address] documented in this encounterCleveland Clinic [facility]04-26-2024 Telephone encounter Note * Telephone Encounter - So Freeman LPN - 01/22/2024 3:16 PM EDT Patient calling back to check status of refill, aware POLYSTYRENE MOLDING MACHINE TENDER is still seeing patients not addressed yet. [facility]04-26-2024 Miscellaneous Notes* Telephone Encounter - So Freeman LPN - 01/22/2024 3:16 PM EDT Patient calling back to check status of refill, aware POLYSTYRENE MOLDING MACHINE TENDER is still seeing patients not addressed yet. [...] notify patient. Nohelia Zacarias documented in this encounterCleveland Clinic [facility]04-26-2024 Telephone encounter Note * Telephone Encounter - [...] Please advise. Thank you. Chen Chauhan LPN. [facility]04-26-2024 Telephone encounter Note* Telephone Encounter - Nohelia [...] No need to notify patient. Nohelia Zacarias [facility]04-24-2024 Telephone encounter Note* Telephone Encounter - Soila Easton APRN.CNP - 01/20/2024 7:03 AM EDT PDMP website checked and validated. All prescriptions have been APPROPRIATELY filled. No suspiciousactivity was identified. 01/20/2024 by Soila Easton APRN.CNP [facility]04-24-2024 Miscellaneous Notes* Telephone Encounter - Soila Easton [...] you. Marge Perkins RN. documented in this encounterCleveland Clinic [facility]04-23-2024 Discharge summary Author Erik Gomez [facility] January 19, 2024 11:52pm Note Date/Time January 19, 2024 10: 42pm [facility] Medical Records Department [address] [place] [address] Emergency Department Summary 01/19/24 MR#: [id number] Acct: [id number] Name: GRACIE BANUELOS Rep #:[id number] : 1965 58 From: Erik Gomez MD [...] she is asking for 1 of those. [facility] Medical History Acute on chronic hypoxic [...] QHS sleep 01/16/22 [History Last Taken 01/01/24] vqrxvb-mdravnpc-ghkbuuc 24,000-76,000-120,000 unit capsule,delayed rel (Creon) 2cap PO [...] Q6H PRN pain 2 days #8 tabs 04/23/24 [Rx Last Taken Unknown] Allergy/AdvReac Type Severity Reaction Status Date / Time clindamycin Allergy Intermediate Hives Verified 01/19/24 22:09 Penicillins Allergy Hives Verified 01/19/24 22:09 sulfamethoxazole Allergy Other Verified 01/19/24 22:09 [From Bactrim] trimethoprim [From Bactrim] Allergy Other Verified 01/19/24 22:09 hydrocodone [From [place]] AdvReac Itching Verified 01/19/24 22:09 Family History [...] the right lower extremity, and per the electronics engineering technician's preliminary interpretation, it is negative for [...] Discussion w/another healthcare provider: Other (vascular u/s electronics engineering technician) Discharge Plan Triage Chief Complaint: Edema [...] 14 0RF Primary Care Provider: Anat Gutiérrez POLYSTYRENE MOLDING MACHINE TENDER Referrals: Alden Monroy, DPM [Med Staff - Active Staff] - 1 Week if not improving Anat Gutiérrez POLYSTYRENE MOLDING MACHINE TENDER, POLYSTYRENE MOLDING MACHINE TENDER-C [Primary Care Provider] - Disposition Disposition: Home, Self Care What to do if you have Problems For any increased pain, shortness of breath, bleeding, nausea or vomiting, chestpain, or any unexpected problems, contact your Primary Care Provider. Call [facility] ([phone]) or report to the closest Emergency Room. Call 911 if necessary. 01/19/242351 <Electronically signed by Erik Gomez MD> Cosigner Signature (if applicable): CC: POLYSTYRENE MOLDING MACHINE TENDER-C Anat Older ~ Signed [facility] Work Phone: 1(103) 797-241104-22-2024 Telephone encounter Note* Telephone Encounter - Marge [...] Please advise. Thank you. Marge Perkins RN. [facility]04-16-2024 Miscellaneous Notes* Telephone Encounter - So Freeman LPN - 01/12/2024 4:09 PM EDT Phoned pharmacy and aware Metoprolol rx had been sent in per POLYSTYRENE MOLDING MACHINE TENDER. * Telephone Encounter - Anat Gutiérrez APRN.CNP [...] Metoprolol rx for the patient. Asking if POLYSTYRENE MOLDING MACHINE TENDER wanted to send rx for the patient, or if the patient gets from another provider? Please advise documented in this encounterCleveland Clinic [facility]04-16-2024 Instructions* Patient Instructions* Anat Gutiérrez APRN.CNP - 01/12/2024 11:36 AM EDT FOR BLOOD PRESSURE: DISCONTINUE HYDROCHLOROTHIAZIDE. DECREASE AMLODIPINE TO 5 MG DAILY. CONTINUE WITH METOPROLOL 25 MG TWICE A DAY OKAY TO RESTART HYDROXYZINE HAVE LAB WORK DONE IN ONE WEEK documented in this encounterCleveland Clinic [facility]04-16-2024 History of Present illness Narrative* Anat Gutiérrez [...] today for above. She was admitted to [facility] from 01/01 to 01/04 for pneumonia and [...] systolic blood pressure less than 100 mmHG. mqimkw-asnrlfuq-ksdctlf (CREON 24) 24,000-76,000 -120,000 unit delayed release [...] Cognition normal. DATA REVIEWED: Outside chart from [facility] admission reviewed. ASSESSMENT/PLAN: 1. Essential hypertension, benign [...] Patient agreeable to treatment plan. Anat Gutiérrez APRN.BOX TOE MAKER documented in this encounterC[facility] Clinic [facility]04-10-2024 Miscellaneous Notes* Telephone Encounter - Sylvia Chawla [...] for treatment for this. documented in this encounterCleveland Clinic [facility]04-10-2024 History of Present illness Narrative* Deandra Botello LPN - 01/06/2024 2:00 PM EDT TRANSITION CARE MANAGEMENT (TCM) INITIAL CONTACT Seafood Process Worker Outreach Provider Action/FYI: TCM Initial contact with patient post discharge, spoke to patient. Patient identified by name and . TRANSITION CARE MANAGEMENT INITIAL OUTREACH DOCUMENTATION: 01/06/2024 Date of Outreach: Outreach Attempt 1: Contact Made Date of Discharge 01/05/2024 SUMMARY: -Pt discharged from [facility] on 01/05/24. -Admitted for: hypoxia,pneumonia,COPD exac Do you have a hospital follow up appointment with your PCP? Appointment on 01/12/24 with Anat Ghotra POLYSTYRENE MOLDING MACHINE TENDER. Yes. Remind patient of appointment date, time, [...] instructions/AVS at all. Restate discharge instructions from [facility] verbally, copy/paste via [employer], mail, or provide in person. Do you have all the necessary equipment and supplies at home? Yes Medical records from recent hospitalization: Placed for provider to review Pt filled new medicines at [facility] but [facility]'s pharmacy is her normal pharmacy. She will call [facility]'s pharmacy to see if they can pull the new rx she got from [facility] to make sure [facility]'s pharmacy has her updated medicines. [facility]'s pharmacy pre packages pt medicines documented in this encounterCleveland Clinic [facility]04-09-2024 Discharge summary Author Bert Greenwood [facility] January 05, 2024 12:07pm Note Date/Time January 05, 2024 7:40 am [facility] Medical Records Department [address] [place] [address] Instructions for Home/Discharge Instructions 01/05/24 0739 MR#: [id number] Acct: [id number] Name: GRACIE BANUELOS Rep #:[id number] : 1965 58 From: Bert Back PCP: Anat Easton, POLYSTYRENE MOLDING MACHINE TENDER-C Status:ADM IN Discharge Instructions Diet Discharge Diet: [...] MD; Dr. Anastacia Bonilla MD ~ Signed [facility] Work Phone: 1(725) 693-560504-08-2024 Progress note Author Bert Greenwood [facility] January 04, 2024 1:21pm Note Date/Time January 04, 2024 8:28 am [facility] Medical Records Department [address] [facility] [place] [address] Progress Note - Hospitalist 01/04/2428 MR#: [id number] Acct: [id number] Name: GRACIE BANUELOS Rep #:[id number] : 1965 58 From: Bert Back PCP: CARMEN Salazar Status:ADM IN [facility] Reason for Visit Reason for Visit: Diagnoses [...] * # Charges/Coding Visit Charges Inpatient E&M: 42257 Subs Hosp L2 01/04/24 1321 <Electronically signed by Bert Greenwood MD> Cosigner Signature (if applicable): CC: ~ Signed [facility] Work Phone: 1(173) 142-923304-07-2024 Progress note Author Anastacia Bonilla [facility] January 03, 2024 11:22am Note Date/Time January 03, 2024 9:13 am [facility] Medical Records Department [address] [place] [address] Progress Note 01/03/24 09 MR#: [id number] Acct: [id number] Name: GRACIE BANUELOS Rep #:[id number] : 1965 58 From: Anastacia Bonilla MD PCP: Anat Easton, POLYSTYRENE MOLDING MACHINE TENDER-C Status:ADM IN Location: [place] [address] Subjective Subjective Patient seen and examined. She [...] 81.7 H, Lymph % (Auto) 9.6 L, [place] % (Auto) 6.9, Eos % (Auto) 0.6, [...] 91.3 H, Lymph % (Auto) 4.0 L, [place] % (Auto) 2.5, Eos % (Auto) 0.2, [...] Signed: Jeff Thakkar MD at 20:22 EDT Reading Location ID and State: [facility] / [place] Tel , Service support , Chest CTA 01/02/24 20:13 IMPRESSION: Normal [...] * # Charges/Coding Visit Charges Inpatient E&M: 23369 Subs Hosp L2 01/03/24 1122 <Electronically signed by Anastacia Bonilla MD> Anastacia Bonilla MD Cosigner Signature (if applicable): CC: ~ Signed [facility] Work Phone: 1(890) 725-257904-07-2024 Discharge summary Author Víctor Huerta [facility] January 02, 2024 11:55pm Note Date/Time January 02, 2024 7:21 pm [facility] Medical Records Department [address] [place] [address] Emergency Department Summary 01/02/24 MR#: [id number] Acct: [id number] Name: GRACIE BANUELOS Rep #:[id number] : 1965 58 From: Víctor Palumbo PCP: Anat Older, POLYSTYRENE MOLDING MACHINE TENDER-C Status:ADM IN Location: MS3 FC510-8 HPI History of Present Illness Chief Complaint: [...] she has had that before with pneumonia. [facility] Medical History (Updated 01/02/24 @ 22:10 [...] DAILY BP 11/01/22 [History Last Taken Unknown] rflwuz-bydsusdq-weglnou 24,000-76,000-120,000 unit capsule,delayed rel (Creon) 1cap PO [...] Allergy Other Verified 01/02/24 18:59 hydrocodone [From [place]] AdvReac Itching Verified 01/02/24 18:59 Family History [...] 81.7 H Lymph % (Auto) 9.6 L [place] % (Auto) 6.9 Eos % (Auto) 0.6 [...] Signed: Jeff Thakkar MD at 20:22 EDT Reading Location ID and State: [facility] / [place] Tel , Service support , Chest CTA 01/02/24 20:13 IMPRESSION: Normal [...] disease), Pneumonia Disposition Disposition: Acute Care Hospital [facility] What to do if you have Problems For any increased pain, shortness of breath, bleeding, nausea or vomiting, chestpain, or any unexpected problems, contact your Primary Care Provider. Call [facility] ([phone]) or report to the closest Emergency Room. Call 911 if necessary. 01/02/24 6088 <Electronically signed by Víctor Huerta DO> Cosigner Signature (if applicable): CC: POLYSTYRENE MOLDING MACHINE TENDER-C Anat Easton ~ Signed [facility] Work Phone: 1(502) 466-539704-07-2024 History and physical note Author Carin Meraz [facility] January 02, 2024 10:42pm Note Date/Time January 02, 2024 10:1 0pm [facility] Medical Records Department [address] [place] [address] H&P Exam - Hospitalist 01/02/248 MR#: [id number] Acct: [id number] Name: GRACIE BANUELOS Rep #:[id number] : 1965 58 From: Carin Meraz MD PCP: CARMEN Salazar Status:ADM IN Location: [place] [address] HPI - General General Date of Admission: 01/02/24 Date of Service: 01/02/24 Chief Complaint: URI sxs, cough, dyspnea, worsening. HPI Narrative The patient is a 58 y/o F w/ PMHx: EtOH abuse, Tobacco use, COPD/Asthma w/ Chronic Hypoxic Respiratory Failure (PRN), HTN, HLD, Chronic anemia, Anxiety andDepression, Chronic pancreatitis associated with EtOH abuse who presents to the [facility] ED on 01/02/24 with history of onset [...] 1, Rocephin 1 g IV x 1. [facility] Medical History Anemia Anxiety and depression Arthritis [...] DAILY BP 11/01/22 [History Last Taken Unknown] bekzzt-qiwpsbat-rvomfcg 24,000-76,000-120,000 unit capsule,delayed rel (Creon) 1cap PO [...] Allergy Other Verified 01/02/24 18:59 hydrocodone [From [place]] AdvReac Itching Verified 01/02/24 18:59 Family History [...] 81.7 H, Lymph % (Auto) 9.6 L, [place] % (Auto) 6.9, Eos % (Auto) 0.6, Baso % (Auto) 0.4, Absolute Neuts (auto)21.0 H, Absolute Lymphs (auto) 2.46, Nucleated RBC % 0, Differential Comment SCANNED, Diff Path Review May foll, Sodium 133 L, Potassium 3.9, Chloride 101, [...] with EtOH abuse who presents to the [facility] ED on 01/02/24 with history of onset [...] Patient does not have healthcare power of divorce attorney or living will in place but [...] Time: 16minutes. Charges/Coding Visit Charges Inpatient E&M: 54603 Init Hosp L3 Procedures Hospitalists Procedures: 52637 Advncd Care Plan 30 Min 01/02/24 2242 <Electronically signed by Carin Meraz MD> Cosigner Signature (if applicable): CC: CARMEN Coppola Older; Dr. Carin Meraz MD~ Signed [facility] Work Phone: 1(126) 736-956703-20-2024 History of Present illness Narrative* Larry Talley [...] 1 tablet by mouth daily at bedtime. xgljfo-olkjjoaz-jkkmcbr (CREON 24) 24,000-76,000 -120,000 unit delayed release [...] K86.0 Refills provided per pt request - XVPJLA-ATCTLFBL-PQFJJPS 24,000-76,000-120,000 UNIT CAPSULE,DELAYED REL - CBC + [...] ICD9: 496, ICD10: J44.[address] Romulo sim - PDMP website checked and validated. All [...] plan. Larry Talley PA-C documented in this encounterC[facility]02-07-2024 Miscellaneous Notes* Telephone Encounter - Maribeth Owen [...] - 11/03/2023 8:18 AM EST Spoke with [facility] and they were trying to [...] Thank you. Gem Swartz. documented in this encounterCleveland Clinic [facility]10-13-2023 Miscellaneous Notes* Telephone Encounter - Rissa Jonhson OCCA - 07/10/2023 12:11 PM EDT TC to patient who verbalized understanding of providers message below. Patient asking for medication to go to [facility]'s pharmacy instead of [place].Please advise. Thank you. BERNADETTE James * Telephone [...] ER follow up 07/20 documented in this encounterCleveland Clinic [facility]09-15-2023 Miscellaneous Notes* Telephone Encounter - Mike Phan RN - 06/12/2023 2:38 PM EDT Patient has been identified by name and date of : Yes, Provider Ganmiguel angel Date 06-12-23 Time 2:39 pm Pharmacy phones [...] you. Mike Phan RN documented in this encounterCleveland Clinic [facility]09-13-2023 Miscellaneous Notes* Telephone Encounter - Susy Barnes [...] and advise. Tasneem Lock documented in this encounterCleveland Clinic [facility]09-05-2023 Discharge summary Author Levar Handy [facility] June 02, 2023 4:56pm Note Date/Time June 02, 2023 4:56pm [facility] Medical Records Department [address] [place] [address] Emergency Department Summary 06/02/23 MR#: [id number] Acct: [id number] Name: GRACIE BANUELOS Rep #:[id number] : 1965 58 From: Levar Handy DO PCP: CARMEN TSAHL Status:REG ER Location: ED HPI History of [...] oxygen and everything she needs at home. [facility] Medical History Abdominal pain Alcohol [...] Q6H antibiotic 11/01/22 [History Last Taken Unknown] dvmnij-lzckxunx-jbksyga 24,000-76,000-120,000 unit capsule,delayed rel (Creon) 1cap PO [...] Allergy Hives Verified 11/01/22 19:37 hydrocodone [From [place]] AdvReac Itching Verified 11/01/22 19:37 Family History [...] % (Auto) 63.1 Lymph % (Auto) 25.1 [place] % (Auto) 6.4 Eos % (Auto) 3.6 [...] your Primary Care Provider. Call [facility] ([phone]) or report to the closest Emergency Room. Call 911 if necessary. 06/02/23 1656 <Electronically signed by Levar Handy DO> Cosigner Signature (if applicable): CC: CARMEN EASTON ~ Signed [facility] Work Phone: 1(257) 274-119808-21-2023 Miscellaneous Notes* Telephone Encounter - Eva Martines RN - 05/18/2023 1:32 PM EDT Last Office Visit: 04/12/2023 Future Office Visit: None Requested Prescriptions Pending Prescriptions Disp Refills lisinopril (ZESTRIL) 10 mg tablet 30 tablet 11 Sig: Take 1 tablet by mouth once daily. documented in this encounterCleveland Clinic [facility]07-19-2023 Instructions* Patient Instructions* Larry Talley PA-C - 04/15/2023 1:24 PM EDT [facility] check [facility] to see if it's safe to take Cyclobenzaprine (Flexeril)at night with Geodon and Mirtazapine (Remeron) documented in this encounterCleveland Clinic [facility]07-19-2023 History of Present illness Narrative* Larry Talley [...] airways disease (HCC) Alcohol dependence in remission ([facility]) 07/10/2015 Alcohol use disorder 08/27/2017 Alcohol-induced pancreatitis Alcoholic hepatitis 05/18/2012 Alcoholic liver disease ([facility]) 11/16/2013 Anemia Anxiety with depression Asthma Chronic hypoxemic respiratory failure (HCC) COPD (chronic obstructive pulmonary disease) ([facility]) 05/25/2012 DDD (degenerative disc disease), cervical 09/03/2018 [...] to infectious organism 2017 Severe protein-calorie malnutrition ([facility]) 01/07/2019 Stage 3 severe COPD by GOLD classification ([facility]) 2018 Tobacco use greater than 30 years [...] 1 tablet by mouth daily at bedtime. wjjiva-wkltuynh-xubdvns (CREON 24) 24,000-76,000 -120,000 unit delayed release [...] Take 1 tablet by mouth once daily. ocdaismkjkk-hkqouzrtb-jxfkmull (TRELEGY ELLIPTA) 100-62.5-25 mcg inhalation powder DAILY [...] plan. Larry Talley PA-C documented in this encounterCleveland Clinic [facility]06-27-2023 Miscellaneous Notes* Telephone Encounter - Maribeth Owen [...] you. Maribeth Owen LPN documented in this encounterCleveland Clinic [facility]04-05-2023 Miscellaneous Notes* Telephone Encounter - Soila Easton [...] problem. Efren Thao LPN documented in this encounterCleveland Clinic [facility]03-03-2023 History of Present illness Narrative* Soila Easton [...] airways disease (HCC) Alcohol dependence in remission ([facility]) 07/10/2015 Alcohol use disorder 08/27/2017 Alcohol-induced pancreatitis Alcoholic hepatitis 05/18/2012 Alcoholic liver disease ([facility]) 11/16/2013 Anemia Anxiety with depression Asthma Chronic hypoxemic respiratory failure ([facility]) COPD (chronic obstructive pulmonary disease) ([facility]) 05/25/2012 DDD (degenerative disc disease), cervical 09/03/2018 [...] Stage 3 severe COPD by GOLD classification ([facility]) 2018 Tobacco use greater than 30 years [...] Puffs as instructed four times dailyas needed. qfoyownloub-jtbbptuag-todklpfg (TRELEGY ELLIPTA) 100-62.5-25 mcg inhalation powder DAILY xcrvwz-qedyznfz-jjlakuv (CREON 24) 24,000-76,000 -120,000 unit delayed release [...] plan. Soila Easton APRN.IGOR documented in this encounterCleveland Clinic [facility]03-02-2023 Miscellaneous Notes* Telephone Encounter - Mihaela Cheng [...] vitamin levels are still to be back Misbah Cisneros MD, MD 11/27/2022 2:51 PM EST Please pursue consult with neuro as the xr of the back did not really show any major issues Misbah Cisneros MD documented in this encounterCleveland Clinic [facility]03-02-2023 Miscellaneous Notes* Telephone Encounter - Mihaela Cheng [...] to find transportation for EMG scheduled in [place]. Patient is requesting to have EMG done at [facility]. Order faxed per patient request. Referral placed. EMG not cancelled yet incase unable to schedule with [facility]. Janene Grimm RN documented in this encounterCleveland Clinic [facility]03-01-2023 Instructions* Patient Instructions* Mariluz Verduzco PA-C - [...] Please reach out with any questions. Rosario [facility] address: [address] [place] [address] Dr. [place] [address] documented in this encounterCleveland Clinic [facility]03-01-2023 History of Present illness Narrative* Mariluz Verduzco PA-C - 11/26/2022 1:16 PM EST Images from the original note were not included. Neurology Outpatient Clinic Date: November 26, 2022 Patient Name: Gracie Banuelos Referring physician: Misbah Elkins [address] [facility] [address] Consult requested for paresthesias by Dr. Elkins. Recommendations will be communicated via shared medical record or US mail. Primary physician: Misbah Elkins [address] [place] [address] Reason for Evaluation: Paresthesias Subjective HPI Gracie [...] by mouth once daily. 30 tablet 11 ehildkiavnt-vustcloie-bpibgcvl (TRELEGY ELLIPTA) 100-62.5-25 mcg inhalation powder DAILY mzwark-jjxbmmkk-srtpwtf (CREON 24) 24,000-76,000 -120,000 unit delayed release [...] pancreatitis Alcoholic hepatitis 05/18/2012 Alcoholic liver disease ([facility]) 11/16/2013 Anemia Anxiety with depression Asthma Chronic hypoxemic respiratory failure ([facility]) COPD (chronic obstructive pulmonary disease) ([facility]) 05/25/2012 DDD (degenerative disc disease), cervical 09/03/2018 [...] Stage 3 severe COPD by GOLD classification ([facility]) 2018 Tobacco use greater than 30 years [...] BrRad 2/4 2/4 Knee 1/4 1/4 Ankle 1/4 /4 Loving Response Negative Negative Coordination: finger-to- nose-finger intact bilaterally and nztt-yt-tfpv intact bilaterally. Gait: Patient's gait is normal [...] which included preparing to see the patient, bkwv-vm-iavb patient care, completing clinical documentation, obtaining and/or reviewing separately obtained history, performing a medically appropriate examination, counseling and educating the pat ient/family/caregiver, and ordering medications, tests, or procedures. Mariluz Verduzco PA-C [facility] Neurology This document has been created with the use of voice recognition technology. It may contain inaccuracies: (e.g. misspellings, inaccurate syntax or word sense) that have escaped review. documented in this encounterCleveland Clinic [facility]02-28-2023 History of Present illness Narrative* Misbah Elkins [...] airways disease (HCC) Alcohol dependence in remission ([facility]) 07/10/2015 Alcohol use disorder 08/27/2017 Alcohol-induced pancreatitis Alcoholic hepatitis 05/18/2012 Alcoholic liver disease ([facility]) 11/16/2013 Anemia Anxiety with depression Asthma Chronic hypoxemic respiratory failure ([facility]) COPD (chronic obstructive pulmonary disease) ([facility]) 05/25/2012 DDD (degenerative disc disease), cervical 09/03/2018 [...] Stage 3 severe COPD by GOLD classification ([facility]) 2018 Tobacco use greater than 30 years [...] inhaler lisinopril (ZESTRIL, PRINIVIL) 10 mg tablet hxpasshbkvd-iagihssik-dyxkzdzx (TRELEGY ELLIPTA) 100-62.5-25 mcg inhalation powder tnlust-cxgnwszb-kuagbsw (CREON 24) 24,000-76,000 -120,000 unit delayed release [...] medication. Misbah Elkins MD documented in this encounterCleveland Clinic [facility]02-28-2023 Nurse Note* Eda Moore LPN - 11/25/2022 9:53 AM EST and had put a hold on eye surgery for now. Patient is going to [facility] on December 03 for possible surgery documented in this encounterCleveland Clinic [facility]02-15-2023 Miscellaneous Notes* Telephone Encounter - Eileen Chavez [...] its not really worsening. documented in this encounterCleveland Clinic [facility]02-14-2023 History of Present illness Narrative* Sonja Victor, RT(R) - 11/11/2022 4:50 PM EST Radiology [...] 11, 2022 4:49 PM documented in this encounterCleveland Clinic [facility]02-14-2023 History of Present illness Narrative* Misbah Elkins [...] regularly. Was admitted with ocular cellulitis at [facility] and was transferred to [facility] and for oculoplastics. No interventions were made by occulopastics as she got better on abx on her own In the [facility] she had an episode of respiratory distress which was thought to be on hindsight from Atfr[place] javier and [employer]. They did think she had [...] airways disease (HCC) Alcohol dependence in remission ([facility]) 07/10/2015 Alcohol use disorder 08/27/2017 Alcohol-induced pancreatitis [...] Stage 3 severe COPD by GOLD classification ([facility]) 2018 Tobacco use greater than 30 years [...] inhaler lisinopril (ZESTRIL, PRINIVIL) 10 mg tablet nvkgmbtsyqg-sqvlivakm-krwazswu (TRELEGY ELLIPTA) 100-62.5-25 mcg inhalation powder goxynx-hsyewpkd-lfhtlhr (CREON 24) 24,000-76,000 -120,000 unit delayed release [...] K86.0 Misbah Elkins MD documented in this encounterCleveland Clinic [facility]02-09-2023 NoteTeaching Physician Note: I have seen and examined the patient and supervised the procedures performed. I personally obtained the ochoa portions of the history and the ophthalmologic exam. I reviewed the resident's documentation and discussed the patient's history and examination with the resident. I agree with the resident's decision making as documented in the resident's note. Yumiko Guerin [facility]DC[facility]02-09-[address] Bonilla [facility] November 06, 2022 3:03pm Note Date/Time November 06, 2022 9 :43[facility] Medical Records Department [address] [place] [address] Progress Note - Hospitalist 11/06/22939 MR#: [id number] Acct: [id number] Name: GRACIE BANUELOS Rep #:[id number] : 1965 57 From: Anastacia Bonilla MD PCP: CARMEN STAHL Status:ADM IN Location: [place] [address] Reason for Visit Reason for Visit: Diagnoses [...] 74.3 H, Lymph % (Auto) 11.1 L, [place] % (Auto) 9.9, Eos % (Auto) 1.6, [...] prophylaxis: heparin Charges/Coding Visit Charges Inpatient E&M: 46096 Subs Hosp L2 11/06/22 1503 <Electronically signed by Anastacia Bonilla MD> Cosigner Signature (if applicable): CC: ~ Signed [facility] Work Phone: 1(164) 428-540902-09-[address] Iverson [facility] November 06, 2022 2:28pm Note Date/Time November 06, 2022 2 :28pm [facility] Medical Records Department [address] [place] [address] Progress Note - Nephrology 11/06/22 1427 MR#: [id number] Acct: [id number] Name: GRACIE BANUELOS Rep #:[id number] : 1965 57 From: Courtney sanders MD PCP: SOILA EASTON, POLYSTYRENE MOLDING MACHINE TENDER-C Status:ADM IN Location: [place] [address]- Subjective Subjective No new complaints. Breathing looks [...] 74.3 H, Lymph % (Auto) 11.1 L, [place] % (Auto) 9.9, Eos % (Auto) 1.6, [...] Referring Physician: Soila Easton Performed By: Som Mcniel RVT Rhythm Strip Rhythm Strip: Sinus Rhythm Rate: 99 Ectopy: None Physical Exam Narrative Alert awake oriented x 3 no obvious distress no pallor no icterus no JVD s1s2 no murmurs lungs clear abdomen soft no organomegaly no edema no cyanosis frankel + Assessment & Plan Assessment/Plan (1) Acute kidney injury: PLAN: Acute renal failure. Prior to admission at [facility] and at the time ofadmission at [facility] creatinine was normal. She was subsequently transferred to [facility]. Discharge creatinine was 1.5. Urine analysis over [...] Cosigner Signature (if applicable): CC: ~ Signed [facility] Work Phone: 1(904) 897-612502-09-2023 History of Present illness Narrative* Yumiko Guerin [...] cc OD, 20/40-1 cc OS - IOP 10/09 - no APD - color plates full [...] Seen with Dr. Guerin documented in this [id number] Sebastian [facility] November 06, 2022 8:41am Note Date/Time November 06, 2022 5 :54am [facility] Medical Records Department [address] [place] [address] Progress Note - Paint Stock Clerk 11/06/22 0553 MR#: [id number] Acct: [id number] Name: GRACIE BANUELOS Rep #:[id number] : 1965 57 From: Gonzalo Sebastian DO PCP: SOILA EASTON, POLYSTYRENE MOLDING MACHINE TENDER-C Status:ADM IN Location: ICU CVICU20 3-1 Assessment [...] medicationsas indicated. This note was generated with LinPrim dictation software. It may contain incorrectwords, spelling, [...] 74.3 H, Lymph % (Auto) 11.1 L, [place] % (Auto) 9.9, Eos % (Auto) 1.6, [...] Referring Physician: Soila Easton Performed By: Som Mcneil, RVT Rhythm Strip Rhythm Strip: Sinus Rhythm [...] Psych cooperative Charges/Coding Visit Charges Inpatient E&M: 76584 Subs Hosp L2 11/06/22 0841 <Electronically signed by Gonzalo Sebastian DO> Cosigner Signature (if applicable): CC: ~ Signed [facility] Work Phone: 1(170) 393-826202-08-2023 Progress note Author [facility] November 05, 2022 4:09pm Note Date/Time November 05, 2022 1 2:55pm [facility] Medical Records Department [address] [place] [address] Progress Note - Hospitalist 11/05/22 1252 MR#: [id number] Acct: [id number] Name: GRACIE BANUELOS Salvatore Rep #:[id number] : 1965 57 From: Anastacia Bonilla MD PCP: SOILA EASTON, POLYSTYRENE MOLDING MACHINE TENDER-C Status:ADM IN Location: ICU CVICU20 3-1 Reason [...] Clarity Clear, Urine pH 6.0, Ur Specific [place] 1.015, Urine Protein 30 H, Urine Glucose [...] 85.4 H, Lymph % (Auto) 4.8 L, [place] % (Auto) 4.4, Eos % (Auto) 0.6, [...] prophylaxis: heparin Charges/Coding Visit Charges Inpatient E&M: 73786 Subs Hosp L2 11/05/22 1609 <Electronically signed by Anastacia Bonilla MD> Cosigner Signature (if applicable): CC: ~ Signed [facility] Work Phone: 1(556) 543-915002-08-2023 Consult note Author [facility] November 05, 2022 4:07pm Note Date/Time November 05, 2022 9 :[address] [place] [address] Medical Records Department [address] [facility] [place] [address] Pharmacokinetic/Renal -Consult 11/05/22 09 MR#: [id number] Acct: [id number] Name: GRACIE BANUELOS Rep #:[id number] : 1965 57 From: Donn Wilson PCP: SOILA EASTON, POLYSTYRENE MOLDING MACHINE TENDER-C Status:ADM IN Y Location: ICU CVICU20 3-1 [...] Date Anastacia Bonilla MD CC: ~ Signed [facility] Work Phone: 1(343) 399-226302-08-[address] Iverson [facility] November 05, 2022 10:42am Note Date/Time November 05, 2022 1 0:42am [facility] Medical Records Department [address] [place] [address] Progress Note - Nephrology 11/05/22 1037 MR#: [id number] Acct: [id number] Name: GRACIE BANUELOS Rep #:[id number] : 1965 57 From: Courtney sanders MD PCP: SOILA EASTON, POLYSTYRENE MOLDING MACHINE TENDER-C Status:ADM IN Location: ICU CVICU20 3-1 Subjective [...] Clarity Clear, Urine pH 6.0, Ur Specific [place] 1.015, Urine Protein 30 H, Urine Glucose [...] 85.4 H, Lymph % (Auto) 4.8 L, [place] % (Auto) 4.4, Eos % (Auto) 0.6, [...] Acute renal failure. Prior to admission at [facility] and at the time ofadmission at [facility] creatinine was normal. She was subsequently transferred to [facility]. Discharge creatinine was 1.5. Urine analysis over [...] Cosigner Signature (if applicable): CC: ~ Signed [facility] Work Phone: 1([phone]) 599-676402-08-[address] Sebastian [facility] November 05, 2022 9:58am Note Date/Time November 05, 2022 5 :52am [facility] Medical Records Department [address] [place] [address] Progress Note - Paint Stock Clerk 11/05/22 0551 MR#: [id number] Acct: [id number] Name: GRACIE BANUELOS Rep #:[id number] : 1965 57 From: Gonzalo Sebastian DO PCP: SOILA EASTON, POLYSTYRENE MOLDING MACHINE TENDER-C Status:ADM IN Location: ICU CVICU20 3-1 Assessment [...] medicationsas indicated. This note was generated with LinPrim dictation software. It may contain incorrectwords, spelling, [...] Clarity Clear, Urine pH 6.0, Ur Specific [place] 1.015, Urine Protein 30 H, Urine Glucose [...] 85.4 H, Lymph % (Auto) 4.8 L, [place] % (Auto) 4.4, Eos % (Auto) 0.6, [...] Behavior: restless Charges/Coding Visit Charges Inpatient E&M: 64380 Subs Hosp L3 11/05/22 0958 <Electronically signed by Gonzalo Sebastian DO> Cosigner Signature (if applicable): CC: ~ Signed [facility] Work Phone: [phone]) [phone] Bonilla [facility] November 05, 2022 7:20am Note Date/Time November 04, 2022 9 :22pm [facility] Medical Records Department [address] [facility] [place] [address] Pharmacokinetic/Renal -Consult 11/04/222119 MR#: [id number] Acct: [id number] Name: GRACIE BANUELOS Rep #:[id number] : 1965 57 From: Sudhir Lott [facility] PCP: SOILA EASTON POLYSTYRENE MOLDING MACHINE TENDER-C Status:ADM IN Y Location: ICU CVICU20 3-1 [...] 0800 11/04/222121 <Electronically signed by Sudhir Cody [facility]> Date _ Sudhir Stanton [facility] 11/05/22719 <Electronically signed by Anastacia cisneros MD> Cosigner Signature (if applicable): Date Anastacia Bonilla MD CC: ~ Signed [facility] Work Phone: [phone]) [phone] Progress note Author [facility] November 04, 2022 3:49pm Note Date/Time November 04, 2022 1 0:22[facility] Medical Records Department [address] [place] [address] Progress Note - Hospitalist 11/04/22 1020 MR#: [id number] Acct: [id number] Name: GRACIE BANUELOS Rep #:[id number] : 1965 57 From: Anastacia Bonilla MD PCP: SOILA EASTON, POLYSTYRENE MOLDING MACHINE TENDER-C Status:ADM IN Location: ICU CVICU 3-1 Subjective Subjective Patient seen and examined. [...] 81.2 H, Lymph % (Auto) 5.6 L, [place] % (Auto) 4.6, Eos % (Auto) 5.9 [...] prophylaxis: lovenox Charges/Coding Visit Charges Inpatient E&M: 30868 Subs Hosp L3 Reason for Visit Reason for Visit: Diagnoses Chronic obstructive pulmonary disease, unspecified (11/01/22) Acute kidney failure, unspecified (11/01/22) Nausea with vomiting, unspecified (11/01/22) Diarrhea, unspecified (11/01/22) 11/04/22 1549 <Electronically signed by Anastacia Bonilla MD> Cosigner Signature (if applicable): CC: ~ Signed [facility] Work Phone: 1(519) 147-787202-07-[address] Iverson [facility] November 04, 2022 11:44am Note Date/Time November 04, 2022 1 1:44am [facility] Medical Records Department [address] [place] [address] Consultation - Nephrology 11/04/22 1139 MR#: [id number] Acct: [id number] Name: GRACIE BANUELOS Rep #:[id number] : 1965 57 From: Courtney sanders MD PCP: SOILA EASTON, POLYSTYRENE MOLDING MACHINE TENDER-C Status:ADM IN Location: ICU CVICU20 3-1 Assessment & Plan Assessment/Plan (1) Acute kidney injury: PLAN: Acute renal failure. Prior to admission at [facility], at the time of admission at [facility] creatinine was normal. [facility]. Discharge creatinine was 1.5. Urine analysis over [...] [facility] Consult Data Date of Consult: 11/04/22 HPI Narrative Reason for Consultation: Acute renal failure HPI Narrative: GRACIE BANUELOS, is a 57 F who presents to the hospital with severe diarrhea. Nephrology on consultation for acute renal failure. No prior kidney disease. Baseline creatinine was normal. She was initially admitted to [facility] followed by [facility]. Admission diagnosis was orbital cellulitis. Was seen by ophthalmology at [facility] as well. Admission creatinine was normal. Discharge [...] increased significantly. Getting a CT chest abdomen. [facility] Medical History Abdominal pain Alcohol abuse Alcoholic [...] Q6H antibiotic 11/01/22 [History Last Taken Unknown] aixiow-ifmyneia-ulxuycx 24,000-76,000-120,000 unit capsule,delayed rel (Creon) 1cap PO [...] Allergy Hives Verified 11/01/22 19:37 hydrocodone [From [place]] AdvReac Itching Verified 11/01/22 19:37 Family History [...] 81.2 H, Lymph % (Auto) 5.6 L, [place] % (Auto) 4.6, Eos % (Auto) 5.9 [...] Iverson MD> Cosigner Signature (if applicable): CC: POLYSTYRENE MOLDING MACHINE TENDER-C Ani Eduardo; POLYSTYRENE MOLDING MACHINE TENDER-C SOILA EASTON; Dr. Ciarra Ross MD; Dr. Freddie Perdue MD; Dr. Gonzalo Sebastian DO; Dr. Courtney Iverson MD; Dr. Olivier Coffman MD; Dr. Lisa Ochoa MD; Dr. Dieter Harrison MD~ Signed [facility] Work Phone: [phone]) 403-823902-07-[address] Sebastian [facility] November 04, 2022 10:07am Note Date/Time November 04, 2022 7 :12am [facility] Medical Records Department [address] [place] [address] Progress Note - Paint Stock Clerk 11/04/22 0709 MR#: [id number] Acct: [id number] Name: GRACIE BANUELOS Rep #:[id number] : 1965 57 From: Gonzalo Sebastian DO PCP: SOILA EASTON, POLYSTYRENE MOLDING MACHINE TENDER-C Status:ADM IN Location: ICU CVICU20 3-1 Assessment [...] medicationsas indicated. This note was generated with LinPrim dictation software. It may contain incorrectwords, spelling, [...] 81.2 H, Lymph % (Auto) 5.6 L, [place] % (Auto) 4.6, Eos % (Auto) 5.9 [...] affect normal Charges/Coding Visit Charges Inpatient E&M: 50406 Subs Hosp L2 11/04/22 1007 <Electronically signed by Gonzalo Sebastian DO> Cosigner Signature (if applicable): CC: ~ Signed [facility] Work Phone: 1(423) 341-997602-06-[address] Bonilla [facility] November 03, 2022 3:59pm Note Date/Time November 03, 2022 3 :06pm [facility] Medical Records Department [address] [place] [address] Progress Note - Hospitalist 11/03/22 1501 MR#: [id number] Acct: [id number] Name: GRACIE BANUELOS Rep #:[id number] : 1965 57 From: Anastacia Bonilla MD PCP: SOILA EASTON, POLYSTYRENE MOLDING MACHINE TENDER-C Status:ADM IN Location: ICU CVICU20 3-1 Subjective [...] 74.5 H, Lymph % (Auto) 11.6 L, [place] % (Auto) 6.9, Eos % (Auto) 5.0, [...] 94.5 H, Lymph % (Auto) 2.2 L, [place] % (Auto) 1.9, Eos % (Auto) 0.1, [...] 20:11 EST Reading Location ID and State: [facility] / [place] , Service support , Rhythm Strip Rhythm [...] prophylaxis: lovenox Charges/Coding Visit Charges Inpatient E&M: 89922 Subs Hosp L3 Reason for Visit Reason for Visit: Diagnoses Chronic obstructive pulmonary disease, unspecified (11/01/22) Acute kidney failure, unspecified (11/01/22) Diarrhea, unspecified (11/01/22) 11/03/22 1559 <Electronically signed by Anastacia Bonilla MD> Cosigner Signature (if applicable): CC: ~ Signed [facility] Work Phone: [phone]) 426-559702-06-[address] Sebastian [facility] November 03, 2022 8:27am Note Date/Time November 03, 2022 7 :12am [facility] Medical Records Department [address] [place] [address] Consultation - Paint Stock Clerk 11/03/22709 MR#: [id number] Acct: [id number] Name: GRACIE BANUELOS Rep #:[id number] : 1965 57 From: Gonzalo Sebastian DO PCP: SOILA EASTON POLYSTYRENE MOLDING MACHINE TENDER-C Status:ADM IN Location: ICU CVICU20 3-1 Assessment [...] medicationsas indicated. This note was generated with LinPrim dictation software. It may contain incorrectwords, spelling, [...] medication. The patient was recently admitted in [place] for periorbital cellulitis. The patient reported to [...] with IV Solu-Medrol, Ativan and aerosol treatments. [facility] Medical History Abdominal pain Alcohol abuse Alcoholic [...] Q6H antibiotic 11/01/22 [History Last Taken Unknown] pfvahu-gdjigewc-etmcoyd 24,000-76,000-120,000 unit capsule,delayed rel (Creon) 1cap PO [...] Allergy Hives Verified 11/01/22 19:37 hydrocodone [From [place]] AdvReac Itching Verified 11/01/22 19:37 Family History [...] 74.5 H, Lymph % (Auto) 11.6 L, [place] % (Auto) 6.9, Eos % (Auto) 5.0, [...] 94.5 H, Lymph % (Auto) 2.2 L, [place] % (Auto) 1.9, Eos % (Auto) 0.1, [...] 20:11 EST Reading Location ID and State: [facility] / [place] , Service support , Charges/Coding Visit Charges Inpatient E&M: 49986 Init Hosp L3 11/03/22 0827 <Electronically signed by Gonzalo Sebastian DO> Cosigner Signature (if applicable): CC: POLYSTYRENE MOLDING MACHINE TENDERMiriam Eduardo; CARMEN EASTON; Dr. Ciarra Ross MD; Dr. Freddie Perdue MD; Dr. Gonzalo Sebastian DO; Dr. Olivier Coffman MD; Dr. Lisa Ochoa MD; Dr. Dieter Harrison MD~ Signed [facility] Work Phone: [phone] Ross [facility] November 02, 2022 9:51pm Note Date/Time November 02, 2022 9 :10pm [facility] Medical Records Department [address] [place] [address] Progress Note 11/02/222107 MR#: [id number] Acct: [id number] Name: GRACIE BANUELOS Rep #:[id number] : 1965 57 From: Ciarra Ross MD PCP: SOILA EASTON, POLYSTYRENE MOLDING MACHINE TENDER-C Status:ADM IN Location: ICU CVICU20 3-1 Progress [...] Cosigner Signature (if applicable): CC: ~ Signed [facility] Work Phone: [phone] Fatima [facility] November 02, 2022 8:23pm Note Date/Time November 02, 2022 8 :19pm [facility] Medical Records Department [address] [place] [address] Progress Note - Hospitalist 11/02/222014 MR#: [id number] Acct: [id number] Name: GRACIE BANUELOS Rep #:[id number] : 1965 57 From: Mahamed Fatima DO PCP: SOILA EASTON, POLYSTYRENE MOLDING MACHINE TENDER-C Status:ADM IN Location: ICU CVICU20 3-1 Hospitalist [...] of critical care time. Procedures Hospitalists Procedures: 29674 Critial Care 1st Hr 11/02/222022 <Electronically signed by Mahamed Fatima DO> Cosigner Signature (if applicable): CC: ~ Signed [facility] Work Phone: [phone]) [phone] Ochoa [facility] November 02, 2022 12:07pm Note Date/Time November 02, 2022 1 2:07pm [facility] Medical Records Department [address] [place] [address] Progress Note - Hospitalist 11/02/22 1156 MR#: [id number] Acct: [id number] Name: GRACIE BANUELOS Rep #:[id number] : 1965 57 From: Lisa Ochoa MD PCP: SOILA EASTON, POLYSTYRENE MOLDING MACHINE TENDER-C Status:ADM IN Location: [place] [id number] Subjective Subjective Reports still feeling little dehydrated [...] % (Auto) 66.4, Lymph % (Auto) 16.8L, [place] % (Auto) 11.3 H, Eos % (Auto) [...] (Auto) 62.9, Lymph % (Auto) 17.1 L, [place] % (Auto) 13.2 H, Eos % (Auto) [...] alcoholic hepatitis, COPD, GERD who presented to [facility] 11/01 with poor urinary output and flank pain for 1 day. She was recently [facility] after being transferred from [facility] with right orbital cellulitis for acute ophthalmology [...] documentation, 30minutes Charges/Coding Visit Charges Inpatient E&M: 79934 Subs Hosp L2 11/02/22 1207 <Electronically signed by Lisa Ochoa MD> Cosigner Signature (if applicable): CC: ~ Signed [facility] Work Phone: [phone]) 259-982202-05-2023 History and physical note Author Dr. Ross [facility] November 02, 2022 1:42am Note Date/Time November 01, 2022 1 0:21pm [facility] Medical Records Department [address] [place] [address] H&P Exam - Hospitalist 11/01/22 2221 MR#: [id number] Acct: [id number] Name: GRACIE BANUELOS Rep #:[id number] : 1965 57 From: Ciarra Ross MD PCP: SOILA EASTON, POLYSTYRENE MOLDING MACHINE TENDER-C Status:ADM IN Location: SD3 VX122-7 HPI - General General Date of Admission: 11/01/22 Date of Service: 11/01/22 Chief Complaint: Poor urine output, bilateral flank pain- 1 day HPI Narrative Cristina BANUELOS, is a 57 F who presents the above. Patient was recently discharged [facility] being transferred from [facility] with right orbital cellulitis for acute ophthalmology evaluation. Over the course ofhis stay in the [facility], patient developed severe diarrhea with resultantAKI. She [...] Q6H antibiotic 11/01/22 [History Last Taken Unknown] uymipk-uexsgzqw-xhvkymx 24,000-76,000-120,000 unit capsule,delayed rel (Creon) 1cap PO [...] Allergy Hives Verified 11/01/22 19:37 hydrocodone [From [place]] AdvReac Itching Verified 11/01/22 19:37 Family History [...] diarrhea Patient with recent CHUY from hospitalization [facility], reportedly improved Admitted creatinine of 2.05 Will [...] the bedside. Charges/Coding Visit Charges Inpatient E&M: 68149 Init Hosp L3 11/02/22 0142 <Electronically signed by Ciarra Ross MD> Cosigner Signature (if applicable): CC: CARMEN EASTON; Dr. Ciarra Ross MD~ Signed [facility] Work Phone: [phone] 344-331002-05-[address] Tang [facility] November 01, 2022 10:20pm Note Date/Time November 01, 2022 8 :27pm [facility] Medical Records Department [address] [place] [address] Emergency Department Summary 11/01/22 MR#: [id number] Acct: [id number] Name: GRACIE BANUELOS Rep #:[id number] : 1965 57 From: Edmund Tang MD PCP: SOILA EASTON, POLYSTYRENE MOLDING MACHINE TENDER-C Status:REG ER Location: ED HPI History of [...] for 3 days. Patient was transferred to [facility]. Records were reviewed. Patient did have stool [...] Anxiety 04/19/19 [History Last Taken 06/10/21 21:00] dximwk-ofchwfvh-bmevlth 24,000-76,000-120,000 unit capsule,delayed rel 3 ea PO [...] Allergy Hives Verified 11/01/22 19:37 hydrocodone [From [place]] AdvReac Itching Verified 11/01/22 19:37 Family History [...] Acute hyponatremia Disposition Disposition: Acute Care Hospital [facility] What to do if you have Problems For any increased pain, shortness of breath, bleeding, nausea or vomiting, chestpain, or any unexpected problems, contact your Primary Care Provider. Call [facility] ([phone]) or report to the closest Emergency Room. Call 911 if necessary. 11/01/222219 <Electronically signed by Edmund Tang MD> Cosigner Signature (if applicable): CC: CARMEN EASTON ~ Signed [facility] Work Phone: [phone] History of Present illness Narrative* Misbah Elkins MD - 10/31/2022 11:46 AM EST Reason for Visit Patient presents with: Hospital F/U: follow up from [facility] and , right eye cellulitis mass behind eye and mass found in lungs per patient Gracie Banuelos is a 57 year old female who presents here today for Above Complaints.. Health Maintenance MAMMOGRAM HPI Was admitted with ocular cellulitis at [facility] and was transferred to [facility] and for oculopastics Prior to it becoming [...] strained her self when she went to [facility]. Lisinopril was held. Cont the hold til results are back She is coming up for cataract surgery surgery next month. Some concern for lung mass and is seeing Dr Iron. She drinks a few beers on and off, no alcohol for a couple months No problem-specific Assessment & Plan notes found for this encounter. PAST MEDICAL HISTORY Diagnosis Date Acute exacerbation of chronic obstructive airways disease (HCC) Alcohol dependence in remission ([facility]) 07/10/2015 Alcohol use disorder 08/27/2017 Alcohol-induced pancreatitis Alcoholic hepatitis 05/18/2012 Alcoholic liver disease ([facility]) 11/16/2013 Anemia Anxiety with depression Asthma Chronic hypoxemic respiratory failure ([facility]) COPD (chronic obstructive pulmonary disease) ([facility]) 05/25/2012 DDD (degenerative disc disease), cervical 09/03/2018 [...] Stage 3 severe COPD by GOLD classification ([facility]) 2018 Tobacco use greater than 30 years [...] inhaler lisinopril (ZESTRIL, PRINIVIL) 10 mg tablet sldxlpnupto-uygpvkrqa-eiszfdja (TRELEGY ELLIPTA) 100-62.5-25 mcg inhalation powder wykihm-lagzvopv-imhpeyw (CREON 24) 24,000-76,000 -120,000 unit delayed release [...] tobacco. Misbah Elkins MD [facility] NoteSend Summary: Discharge Summary Providers: Provider RoleProvider Name ReferringCorrect Info, Needed Jessica Hammond PrimarySoila Easton PrimaryFree, Text Entry Note Recipients: Tai Peoples MD Correct Info, MD Pretty Free, Text Entry, Soila Devi, LEI MAKER-BOX TOE MAKER Jessica Ellis MD Discharge: Summary: Admission Date: .23-Oct-2022 23:56:00 Discharge Date: 29-Oct-2022 Attending Physician at Discharge: Jessica Ellis Admission Reason: Preseptal Cellulitis(1) Final Discharge Diagnoses: Preseptal cellulitis of right eye Procedures: none Condition at Discharge: Fair Disposition at Discharge: .Home Vital Signs: T PRBPMAPSpO2 Value36.91729809/6397% Date/Time10/29 5: 5: 5:122 5:122/ 5:12 Range(36.1C - 39C ) (69 [...] vs. infiltrative mass. Vanc/zosyn were started at [facility]. Oculoplastic were consulted and there was a [...] You presented to us as transfer from [facility] for a possible biopsy of the right [...] Care Provider Scheduled Date/Time: 15-Dec-2022 16:00 Location: [address] [place] [address], [address] [place], [place] [phone] fax Follow-Up Appointment 02: Physician/Dept/Service: Ophthalmology: Dr Oretga Scheduled Date/Time: 03-Dec-2022 15:30 Location: [facility] [address] , [address] [address] Follow-Up Appointment 03: Physicia (more content not included)...[facility]01-31-2023 NoteThis report has been cancelled.[facility]01-27-2023 Note History of Present Illness: /Lactating: Are You no Are You Currently Breastfeedingno Admission Reason: Preseptal Cellulitis HPI: She is a 57 year old woman with history of COPD (GOLD Stage 3, FEV1 55%), anxiety, HTN, DLD who is presenting as a transfer to [facility] from [facility] for further management of preseptal cellulitis vs. [...] she presented to the ER initially in [place]. A brief summary of her course prior to arrival to [facility] is seen in the two paragraphs below. On or about 10/19 she had pain in her right eye that worsened to the point she was unable to tolerate it at home with ibuprofen so she presented to the [place] Emergency Department. At that time she had a CT scan of her orbits which showed right orbital preseptal and orbital cellulitis without evidence of orbital compartment syndrome. She had elevated WBC count to 13.9 with neutrophilic predominance. She had CRP elevated to 42.6 and ESR of 75 mm/h. She was given one dose of clindamycin in the [place] ER. On 10/20 she arrived at the [facility] and evaluated by ophthalmology who recommended MRI [...] On 10/22 ophthalmology recommended [facility] care given need for potential cut-down biopsy which was unable to be accommodated at [facility]. When I spoke with the patient her biggest concerns were continued pain of the right eye and surrounding tissue as well as the possibility that this could be a cancer causing her symptoms. Regarding the pain, it is 9/10 currently and radiates from the right eyelid down to her cheek and into her temples. It is exacerbated with movement, especially the transit from [facility]. It was controlled at OSH with oxycodone [...] daily Mirtazapine 45mg QHS Pertinent Labs/Imaging at [facility]/[place]: ESR/CRP elevated to 75 and 42 respectively. Blood Cx NGTD at [place] on arrival Rheumatoid Factor negative C. Diff [...] conjunctivitis. There is enha (more content not included)...[facility]01-27-2023 NoteDISCHARGE SUMMARY PATIENT INFORMATION: Name: Gracie Banuelos Date of Admission: 10/20/2022 8:44 AM Discharge Date: 10/23/2022 : 1965 57 year old Admitting Physician: Robby Bush MD PCP: No primary care provider on file. Discharge Physician: ROBBY BUSH TRANSFERRED TO [facility] COURSE AND OUTCOME: Gracie Banuelos is a 57 year old year old female who presented to [facility] on 10/20/2022 8:44 AM. Ms. Banuelos is a 57 yof with COPD, active tobacco abuse, anxiety, HTN, sent from OSH [[place] ED] for evaluation of right eye swelling, erythema and pain with movement. Infectious diseases, ENT, and Ophthalmology is consulted and she was started on empiric abx. MRI orbit Abnormal infiltration throughout the right retroantral and extraconal fat as well as the pterygopalatine fossa and diffusely throughout the right documentation liaison space with asymmetry of the muscles of mastication. ENT performed nasal endoscopy - without signs of fungal infection. ID recommended to hold antifungals Ophthalmology strongly recommended orbital biopsy to r/o infectious vs inflammation or lymphoma which could not be arranged at [facility]. Per ophthalmology recommendations and after discussing the patient, patient was [facility]. I examined pt on day of discharge. She was resting comfortably in bed, reports blurry vision and pain in her right eye Periorbital erythema and swelling much improved but eye redness persisted. [facility]23 ~2099. I was not at hospital during the transfer Please do not hesitate to contact [facility] division of Hospital Medicine if you have any questions or concerns. It was a pleasure getting to take care of your patient during her hospital stay. INPT CONSULTS IP ENT CONSULT IP INFECTIOUS DISEASE CONSULT F/U APPTS No follow-up provider specified. DIET: regular ACTIVITY: No restrictions DISPO: Discharged to [facility] TO [facility] []Home, []HHC, []SNF, []ECF, []Hospice, [...] capsule TREATMENT TEAM: Treatment Team: Emergency Medicine Shank Tapper: Edwina Doyle; Consulting Physician: Stevie Goetz Infectious Disease; PCNA: Sherron Briones; 1st call: Ani Thurman APRN-BOX TOE MAKER OBJECTIVE FINDINGS AT DISCHARGE: BP 119/90 (BP [...] SKIN: Normal coloration, warm, AND dry. NEURO: partner cco grossly intact, normal speech, no lateralizing weakness. PSYCH: Awake, alert, oriented x 4. Affect appropriate. LABS Recent Labs 10/22/22 0958 WBC 16.0* HCT 35.3* PLT 332 Media Marketing Coordinator Assessment IMAGING: CT CHEST W/O CONTRAST Result [...] emphysema is p (more content not included)...[facility] [id number] NoteDISCHARGE SUMMARY PATIENT INFORMATION: Name: Gracie Banuelos Date of Admission: 10/20/2022 8:44 AM Discharge Date: 10/23/2022 : 1965 57 year old Admitting Physician: Robby Bush MD PCP: No primary care provider on file. Discharge Physician: ROBBY BUSH TRANSFERRED TO [facility] COURSE AND OUTCOME: Gracie Banuelos is a 57 year old year old female who presented to [facility] on 10/20/2022 8:44 AM. Ms. Banuelos is a 57 yof with COPD, active tobacco abuse, anxiety, HTN, sent from OSH [[place] [facility]] for evaluation of right eye swelling, erythema and pain with movement. Infectious diseases, ENT, and Ophthalmology is consulted and she was started on empiric abx. MRI orbit Abnormal infiltration throughout the right retroantral and extraconal fat as well as the pterygopalatine fossa and diffusely throughout the right documentation liaison space with asymmetry of the muscles of mastication. ENT performed nasal endoscopy - without signs of fungal infection. ID recommended to hold antifungals Ophthalmology strongly recommended orbital biopsy to r/o infectious vs inflammation or lymphoma which could not be arranged at [facility]. Per ophthalmology recommendations and after discussing the patient, patient was transferred to [facility] for further investigations. I examined pt on day of discharge. She was resting comfortably in bed, reports blurry vision and pain in her right eye Periorbital erythema and swelling much improved but eye redness persisted. [facility] ~2099. I was not at hospital during the transfer Please do not hesitate to contact [facility] division of Hospital Medicine if you have any questions or concerns. It was a pleasure getting to take care of your patient during her hospital stay. INPT CONSULTS IP ENT CONSULT IP INFECTIOUS DISEASE CONSULT Ophthalmology F/U APPTS No follow-up provider specified. DIET: regular ACTIVITY: No restrictions DISPO: Discharged to [facility] TO [facility] []Home, []HHC, []SNF, []ECF, []Hospice, [...] capsule TREATMENT TEAM: Treatment Team: Emergency Medicine Shank Tapper: Edwina Doyle; Consulting Physician: Stevie Goetz Infectious [...] SKIN: Normal coloration, warm, AND dry. NEURO: partner cco grossly intact, normal speech, no lateralizing weakness. PSYCH: Awake, alert, oriented x 4. Affect appropriate. LABS No results for input(s): NA, K, CL, CO2, BUN, CREATININE, GLU, WBC, HCT, PLT in the last 72 hours. Invalid input(s): HEMOGLOBIN Media Marketing Coordinator Assessment IMAGING: CT CHEST W/O CONTRAST Result [...] patent. Layering of (more content not included)...[facility] [id number] NoteDAILY PROGRESS NOTE Length of stay: 3 [...] Daily ARIPiprazole, 5 mg, Oral, At Bedtime mvcdyup-kynqtr-rcqyuhgg, 12,000 Units, Oral, 3x Daily with Meals [...] in differential Plans Ophthalmology recommends [facility]/ orbital surgeon for biopsy. Discussed [...] excellent care from the nursing staff, and support services specialist I personally reviewed patient medical record including blood work and radiology report Total time spent with patient is greater than 30 minutes more than 70% of the time is spent in direct patient care Dictated using voice recognition software. Document may contain errors not identified before finalizing. Robby Bush MD MS Pager # [phone] [id number] Telephone encounter Note* Telephone Encounter - Jaime Aggarwal MD - 10/23/2022 12:45 PM EST Spoke to Domonique, pt sister Explained rationale for biopsy and transfer All questions answered [facility] Work Phone: 1(508) 155-924901-26-2023 Miscellaneous Notes* Telephone Encounter - Jaime Aggarwal [...] Domonique back to discuss her sister Dx's [phone] ( PT will be home until 2:30 pm) documented in this [id number] Telephone encounter Note* Telephone Encounter - Airam Adam - 10/23/2022 12:08 PM EST PT's sister, Domonique calling in stating Dr. Aggarwal called and LVM for her regarding her sister that is inpatient. Please call Domonique back to discuss her sister Dx's [phone] ( PT will be home until 2:30 pm) [id number] NoteOTOLARYNGOLOGY HEAD AND NECK SURGERY DAILY PROGRESS [...] structures -ENT will continue to follow ENT [id number] Noman Prajaapti MD PGY-3 Otolaryngology - Head AND Neck Surgery [facility] Service Pager: [phone] [id number] History of Present illness Narrative* Uri Peña [...] to orbital surgeon for biopsy: [facility] or Uri Peña MD * [...] into the pterygopalatine fossa; [facility] [...] from ENT - Recommend transfer to or [facility] for o[facility]astics care. The patient [...] with Dr. Kidd and documented in this [id number] NoteDAILY PROGRESS NOTE Length of stay: 2 [...] Daily ARIPiprazole, 5 mg, Oral, At Bedtime pggjylg-bpicwm-ateselsk, 12,000 Units, Oral, 3x Daily with Meals [...] excellent care from the nursing staff, and support services specialist I personally reviewed patient medical record including blood work and radiology report Total time spent with patient is greater than 30 minutes more than 70% of the time is spent in direct patient care Dictated using voice recognition software. Document may contain errors not identified before finalizing. Robby Bush MD MS Pager # [phone] [id number] NoteOTOLARYNGOLOGY HEAD AND NECK SURGERY DAILY PROGRESS [...] structures -ENT will continue to follow ENT [id number] Note: ENT team attempted to scope patient two separate times earlier this afternoon after critical findings on the MRI were noted. Esdras Brambila DDS, MD ENT rotator ENT pager [phone] [id number] History of Present illness Narrative* Claire Ruiz [...] and Jaime Aggarwal MD documented in this [id number] Note10/21/22 1143 Assessment and Discharge Planning Evaluation READMISSION LESS THAN 30 DAYS No READMISSION RISK SCORE IS Low Risk INTERVIEWED Patient;Chart Review COGNITIVE STATUS Oriented to person, place, time and location Functional Status Age Appropriate;Ambulates with medical records receptionist (cane, walker, etc.) LIVING SITUATION Home - Own;Family PCP VERIFIED No ADMISSION INSURANCE Medicaid Medicaid O- [facility] HOME HEALTH CARE PRIOR TO ADMISSION [...] planning and needs as warranted. Katina Salas Java Groovy Developer (8:30-4:00)[facility] CityMind Palette [id number] NoteDEPARTMENT OF HOSPITAL MEDICINE HISTORY AND PHYSICAL EXAMINATION SERVICE DATE: 10/20/2022 PRIMARY CARE PHYSICIAN: No primary care provider on file. CHIEF COMPLAINT: right eyelid swelling and erythema HPI: Ms. Banuelos is a 57 yof with COPD, active tobacco abuse, anxiety, HTN, sent from [facility] [facility]] for evaluation of right eye swelling, [...] tablet (has no administration in time range) bfbscxy-aypdgj-qwxkszhv (CREON) 89988 units capsule (12,000 Units Oral Given 10/20/221644) [...] tobacco abuse, anxiety, HTN, sent from OSH [[place] [facility]] admitted with right orbital cellulitis Assessment Principal Problem: Orbital cellulitis on right Active Problems: Chronic bronchitis (HCC) Anxiety Tobacco abuse HTN (hypertension) Ophthalmology and ENT is consulted - following Plan MRI orbit w/wo is ordered. CT chest w/o. Empiric abx Vancomycin and Zosyn [she had rash with penicillins as kid, denied anaphylactic react (more content not included)...[employer] [id number] History of Present illness Narrative* Jeffery Jin [...] that did not have beds, sent to [facility] for possible admission for orbital cellulitis - [...] Seen with Dr. Guerin documented in this [id number] Telephone encounter Note* Telephone Encounter - Jeffy Garner MD - 10/20/2022 5:17 AM EST I was called by [facility] regarding a transfer from [place] [facility]. That facility is requesting transfer because [...] 13, ESR/CRP elevated. Discussed with provider at [facility] [place], advised they shoulddiscuss case with ophthalmology as patient may benefit from ED to ED transfer rather than direct admission to medicine for earlier ophthalmology evaluation. Patient is not accepted to medicine at this time, 5:18 AM 10/20/22. Jeffy Garner MD [id number] Miscellaneous Notes* Telephone Encounter - Jeffy Garner MD - 10/20/2022 5:17 AM EST I was called by [facility] regarding a transfer from [place] [facility]. That facility is requesting transfer because [...] 13, ESR/CRP elevated. Discussed with provider at [facility], advised they shoulddiscuss case with ophthalmology as patient may benefit from ED to ED transfer rather than direct admission to medicine for earlier ophthalmology evaluation. Patient is not accepted to medicine at this time, 5:18 AM 10/20/22. Jeffy Garner MD documented in this [id number] Discharge summary Author Mo Velasco [facility] October 20, 2022 5:55am Note Date/Time October 19, 2022 7 :10pm [facility] Medical Records Department [address] [place] [id number] Emergency Department Summary 10/19/22 MR#: [id number] Acct: [id number] Name: GRACIE BANUELOS Rep #:[id number] : 1965 57 From: Tasneem Dykes MD PCP: SOILA EASTON NP-C Status:REG ER Location: ED ADDENDUM by Dr. Mo Velasco DO on 10/20/22 at 0555 Patient has been in the department waiting for bed availability at [facility]. She was a level 1 initially multiple callbacks they are unable to deliver a bed. I spoke with the patient she was okay with trying other hospitalsystems in the [place] area. Her visual acuity obtained 20/40 OD, 20/50 OS, 20/70 OU. She is treated for additional pain in the ED. She was given second dose of antibiotic around 4:30 AM. I spoke with [facility] transfer line and hospitalist Dr. Garner discussed [...] Mo Gray> Cosigner Signature (if applicable): cc: CARMEN EASTON ~* Signed HPI History of Present [...] she should go to the emergency room. [facility] Medical History Abdominal pain Alcohol [...] Anxiety 04/19/19 [History Last Taken 06/10/21 21:00] hbumnn-ajedqtmv-eyvdpjt 24,000-76,000-120,000 unit capsule,delayed rel 3 ea PO [...] Allergy Hives Verified 10/19/22 18:59 hydrocodone [From [place]] AdvReac Itching Verified 10/19/22 18:59 Family History [...] % (Auto) 63.4 Lymph % (Auto) 23.6 [place] % (Auto) 7.1 Eos % (Auto) 4.4 [...] with Dr. Jurado, on-call Dr. Acosta, her armhole sewer. He advises that if the patient had [...] pressure. We spoke with both hospitals in [place] who are not excepting transfers at this time. Patient has been discussed with [facility] and patient has been accepted as a [...] mg PO DAILY PRN PRN (Reason: Anxiety) aoxbad-vozlsjkc-fyudagx 1 CAPSULE capsule 3 ea PO DAILY [...] Disposition Disposition: Acute Care Hospital Discharge Location: [facility] What to do if you have Problems For any increased pain, shortness of breath, bleeding, nausea or vomiting, chestpain, or any unexpected problems, contact your Primary Care Provider. Call [facility] ([phone]) or report to the closest Emergency Room. Call 911 if necessary. 10/19/222224 <Electronically signed by Tasneem Dykes MD> Cosigner Signature (if applicable): CC: CARMEN EASTON ~ Signed [facility] Work Phone: 1(255) 488-510811-30-2022 Instructions* Patient Instructions* Soila Easton APRN.CNP - 08/27/2022 1:16 PM EST Call [facility] and ask how to safely use your portable oxygen. Start trelegy daily as prescribed by pulmonology Use your oxygen at all times at 2L Use your albuterol inhaler as prescribed for shortness of breath. documented in this encounterC[facility]11-30-2022 History of Present illness Narrative* Soila Easton APRN.CNP - 08/27/2022 12:53 PM EST CC: Patient presents with: Recheck: [facility] ER follow up, SOB, fevers in evenings HPI Gracie Banuelos is a 57 year old female who presents today for ER follow-up. Facility: [facility] ER Date of visit: 08/22/22 Reason [...] States she is unsure how to appropriately supervisor pig machine her portable oxygen. Also does not wear her oxygen at home unless she is very short of breath. Has not been taking her trelegy, does not wear her oxygen at home. Sees [facility] andwas instructed by them to go [...] airways disease (HCC) Alcohol dependence in remission ([facility]) 07/10/2015 Alcohol use disorder 08/27/2017 Alcohol-induced pancreatitis [...] Stage 3 severe COPD by GOLD classification ([facility]) 2018 Tobacco use greater than 30 years [...] Take 1 tablet by mouth once daily. vfgkyyymfkp-roizyjhow-aomrxzrp (TRELEGY ELLIPTA) 100-62.5-25 mcg inhalation powder DAILY ywhcfn-fcnenvzj-kicdfed (CREON 24) 24,000-76,000 -120,000 unit delayed release [...] DTAP,TDAP,TD Discontinued DATA REVIEWED: Outside chart from [facility] reviewed. ASSESSMENT/PLAN: 1. Chronic obstructive pulmonary [...] plan. Soila Easton APRN.CNP documented in this encounterCleveland Clinic [facility]10-21-2022 History of Present illness Narrative* Soila Easton [...] Gracie denies regular aerobic exercise. She watches Shipey for sodium, low fat and low cholesterol [...] failure (HCC) COPD (chronic obstructive pulmonary disease) ([facility]) 05/25/2012 DDD (degenerative disc disease), cervical 09/03/2018 [...] Stage 3 severe COPD by GOLD classification ([facility]) 2018 Tobacco use greater than 30 years [...] by mouth three times daily as needed. vxnvxxwhgsu-kbfddqxyi-hamsphjg (TRELEGY ELLIPTA) 100-62.5-25 mcg inhalation powder DAILY melatonin 10 mg TbER iupfgk-uqigatzl-orwimje (CREON 24) 24,000-76,000 -120,000 unit delayed release [...] plan. Soila Easton APRN.IGOR documented in this encounterCleveland Clinic [facility]09-28-2022 Miscellaneous Notes* Telephone Encounter - Evelyn Montgomery RN - 06/25/2022 11:21 AM EDT Patient recently on antibiotic for respiratory infection. C/o vaginal itching/irritation again now.Asking for refill of diflucan for yeast infection. Please file if okay. No need to call patient back if filed. Evelyn Montgomery RN documented in this encounterCleveland Clinic [facility]09-16-2022 Miscellaneous Notes* Telephone Encounter - Janene Grimm [...] you. Janene Grimm RN documented in this encounterCleveland Clinic [facility]08-30-2022 History of Present illness Narrative* Claudia Odonnell MD - 05/27/2022 9:23 AM EDT BESSIE Banuelos is a 57 year old female [...] by mouth three times daily as needed. hfszznhdmah-txzpgjjli-pbeahgfg (TRELEGY ELLIPTA) 100-62.5-25 mcg inhalation powder DAILY [...] Take 1 tablet by mouth once daily. uhxhaw-vfyzfgdi-pfojdul (CREON 24) 24,000-76,000 -120,000 unit delayed release [...] airways disease (HCC) Alcohol dependence in remission ([facility]) 07/10/2015 Alcohol use disorder 08/27/2017 Alcohol-induced pancreatitis Alcoholic hepatitis 05/18/2012 Alcoholic liver disease (HCC) 11/16/2013 Anemia Anxiety with depression Asthma Chronic hypoxemic respiratory failure (HCC) COPD (chronic obstructive pulmonary disease) ([facility]) 05/25/2012 DDD (degenerative disc disease), cervical 09/03/2018 [...] Stage 3 severe COPD by GOLD classification ([facility]) 2018 Tobacco use greater than 30 years [...] 05/27/22 TIME: 9:23 AM documented in this encounterCleveland Clinic [facility]08-25-2022 Miscellaneous Notes* Telephone Encounter - Janene Grimm [...] you. Janene Grimm RN documented in this encounterCleveland Clinic [facility]08-05-2022 History of Present illness Narrative* RT Jose [...] 02, 2022 9:43 AM documented in this encounterCleveland Clinic [facility]07-22-2022 Miscellaneous Notes* Telephone Encounter - Eda Moore [...] you. Eda Moore LPN documented in this encounterCleveland Clinic [facility]07-21-2022 Miscellaneous Notes* Telephone Encounter - Marge Perkins RN - 04/17/2022 11:28 AM EDT [facility] called and notified of providers message and instructions. She voices understanding. Marge Babulski, RN * Telephone Encounter - Soila Easton APRN.CNP - 04/17/2022 11:15 AM EDT Please call [facility] and let them know Ibuprofen is discontinued. Was discussed later in appointment after prescription was sent. Only fill meloxicam at this time. Patient aware she should not take ibuprofen while on meloxicam as it was discussed in appointment. Thank you Soila Easton APRN.CNP * Telephone Encounter - Suellen Leonard LPN - 04/17/2022 11:03 AM EDT Pharmacist Colleen from [facility] calling with med question. She received an Rx today for meloxicam & ibuprofen, pharmacist states these meds should not be taken at the same time & is asking if the directions should specify how far apart to take them? Please advise. Suellen Leonard LPN documented in this encounterCleveland Clinic [facility]07-21-2022 History of Present illness Narrative* Soila Easton [...] months ago. 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 PAST MEDICAL HISTORY Diagnosis Date Acute exacerbation of chronic obstructive airways disease (HCC) Alcohol dependence in remission ([facility]) 07/10/2015 Alcohol use disorder 08/27/2017 Alcohol-induced pancreatitis Alcoholic hepatitis 05/18/2012 Alcoholic liver disease ([facility]) 11/16/2013 Anemia Anxiety with depression Asthma Chronic hypoxemic respiratory failure (HCC) COPD (chronic obstructive pulmonary disease) ([facility]) 05/25/2012 DDD (degenerative disc disease), cervical 09/03/2018 [...] Stage 3 severe COPD by GOLD classification ([facility]) 2018 Tobacco use greater than 30 years [...] Take 1 capsule by mouth once daily. tmnsqs-uhcelvfk-tahluly (CREON 24) 24,000-76,000 -120,000 unit delayed release [...] ICD9: 577.1, ICD10: K86.0 As above - PVLQGD-CHQJPUDH-YPFQKBB 24,000-76,000-120,000 UNIT CAPSULE,DELAYED REL - CONSULT TO [...] plan. Soila Easton APRN.CNP documented in this encounterCleveland Clinic [facility]06-27-2022 Miscellaneous Notes* Telephone Encounter - Maribeth Owen [...] you. Maribeth Owen LPN documented in this encounterCleveland Clinic [facility]06-24-2022 Miscellaneous Notes* Telephone Encounter - Janene Grimm RN - 03/21/2022 4:49 PM EDT Patient has been identified by name and date of : Yes Pharmacy phones for refill(s): Pending Prescriptions Disp Refills CHOLECALCIFEROL (VITAMIN D3) 50 MCG (2,000 UNIT) CAPSULE 28 capsule 11 Sig: Take 1 capsule by mouth once daily. THUY: No IDPNJE-IDXSORJF-JAJQDMP 24,000-76,000-120,000 UNIT CAPSULE,DELAYED REL 180 capsule 11 [...] you. Janene Grimm RN documented in this encounterCleveland Clinic [facility]06-14-2022 Miscellaneous Notes* Telephone Encounter - Inge Holden APRN.CNP - 03/11/2022 3:35 PM EDT Order filed for Diflucan. Inge Holden APRN.CNP * Telephone Encounter - Tasneem Ocampo RN - 03/11/2022 3:26 PM EDT Patient has been taking antibiotic for upper respiratory infection/pnemonia for the last 7 days. Having vaginal itching. Denies discharge or odor. Requesting RX for Diflucan to be sent to [facility] pharmacy. RX pending. Has not tried OTC Monistat. No need to call patient unless RX can't be sent. Tasneem Ocampo RN documented in this encounterCleveland Clinic [facility]05-27-2022 Miscellaneous Notes* Telephone Encounter - Eda Moore [...] you. Eda Moore LPN documented in this encounterCleveland Clinic [facility]04-06-2022 Miscellaneous Notes* Telephone Encounter - Zelda Cartagena Pss - 01/01/2022 12:50 PM EDT Called and scheduled patient for 01-10-22 with Soila Cartagena Pss * Telephone Encounter - Soila Easton APRN.CNP - 12/27/2021 12:54 PM EDT Patient needs routine follow up. Thank you Soila Easton APRN.BOX TOE MAKER documented in this encounterCleveland Clinic [facility]04-15-2021 History of Past illness Narrative* Problem Noted Date Resolved Date History of colonic polyps 01/10/20212020 Abdominal bloating 01/10/2021 01/10/2021 Alcohol dependence in remission 07/10/2015 11/02/2018 Pancreatitis chronic 05/26/2011 08/27/2017 Acute gastritis without mention of hemorrhage 01/03/2015 Gastroesophageal reflux disease 12/26/2009 01/10/2021 documented as of this encounter (statuses as of 01/01/2022) [facility] History of Past illness Narrative* Problem Noted Date Resolved Date History of colonic polyps 01/10/20212020 Abdominal bloating 01/10/2021 01/10/2021 Alcohol dependence in remission 07/10/2015 11/02/2018 Pancreatitis chronic 05/26/2011 08/27/2017 Acute gastritis without mention of hemorrhage 01/03/2015 Gastroesophageal reflux disease 12/26/2009 01/10/2021 documented as of this encounter (statuses as of 02/14/2022) [facility] History of Past illness Narrative* Problem Noted Date Resolved Date History of colonic polyps 01/10/20212020 Abdominal bloating 01/10/2021 01/10/2021 Alcohol dependence in remission 07/10/2015 11/02/2018 Pancreatitis chronic 05/26/2011 08/27/2017 Acute gastritis without mention of hemorrhage 01/03/2015 Gastroesophageal reflux disease 12/26/2009 01/10/2021 documented as of this encounter (statuses as of 02/21/2022) [facility] History of Past illness Narrative* Problem Noted Date Resolved Date History of colonic polyps 01/10/20212020 Abdominal bloating 01/10/2021 01/10/2021 Alcohol dependence in remission 07/10/2015 11/02/2018 Pancreatitis chronic 05/26/2011 08/27/2017 Acute gastritis without mention of hemorrhage 01/03/2015 Gastroesophageal reflux disease 12/26/2009 01/10/2021 documented as of this encounter (statuses as of 03/11/2022) [facility] History of Past illness Narrative* Problem Noted Date Resolved Date History of colonic polyps 01/10/20212020 Abdominal bloating 01/10/2021 01/10/2021 Alcohol dependence in remission 07/10/2015 11/02/2018 Pancreatitis chronic 05/26/2011 08/27/2017 Acute gastritis without mention of hemorrhage 01/03/2015 Gastroesophageal reflux disease 12/26/2009 01/10/2021 documented as of this encounter (statuses as of 03/24/2022) [facility] History of Past illness Narrative* Problem Noted Date Resolved Date History of colonic polyps 01/10/20212020 Abdominal bloating 01/10/2021 01/10/2021 Alcohol dependence in remission 07/10/2015 11/02/2018 Pancreatitis chronic 05/26/2011 08/27/2017 Acute gastritis without mention of hemorrhage 01/03/2015 Gastroesophageal reflux disease 12/26/2009 01/10/2021 documented as of this encounter (statuses as of 03/24/2022) [facility] History of Past illness Narrative* Problem Noted Date Resolved Date History of colonic polyps 01/10/20212020 Abdominal bloating 01/10/2021 01/10/2021 Alcohol dependence in remission 07/10/2015 11/02/2018 Pancreatitis chronic 05/26/2011 08/27/2017 Acute gastritis without mention of hemorrhage 01/03/2015 Gastroesophageal reflux disease 12/26/2009 01/10/2021 documented as of this encounter (statuses as of 04/17/2022) [facility] of Past illness Narrative* Problem Noted Date Resolved Date History of colonic polyps 01/10/20212020 Abdominal bloating 01/10/2021 01/10/2021 Alcohol dependence in remission 07/10/2015 11/02/2018 Pancreatitis chronic 05/26/2011 08/27/2017 Acute gastritis without mention of hemorrhage 01/03/2015 Gastroesophageal reflux disease 12/26/2009 01/10/2021 documented as of this encounter (statuses as of 04/17/2022) [facility] of Past illness Narrative* Problem Noted Date Resolved Date History of colonic polyps 01/10/20212020 Abdominal bloating 01/10/2021 01/10/2021 Alcohol dependence in remission 07/10/2015 11/02/2018 Pancreatitis chronic 05/26/2011 08/27/2017 Acute gastritis without mention of hemorrhage 01/03/2015 Gastroesophageal reflux disease 12/26/2009 01/10/2021 documented as of this encounter (statuses as of 04/18/2022) [facility] of Past illness Narrative* Problem Noted Date Resolved Date History of colonic polyps 01/10/20212020 Abdominal bloating 01/10/2021 01/10/2021 Alcohol dependence in remission 07/10/2015 11/02/2018 Pancreatitis chronic 05/26/2011 08/27/2017 Acute gastritis without mention of hemorrhage 01/03/2015 Gastroesophageal reflux disease 12/26/2009 01/10/2021 documented as of this encounter (statuses as of 04/18/2022) [facility] of Past illness Narrative* Problem Noted Date Resolved Date History of colonic polyps 01/10/20212020 Abdominal bloating 01/10/2021 01/10/2021 Alcohol dependence in remission 07/10/2015 11/02/2018 Pancreatitis chronic 05/26/2011 08/27/2017 Acute gastritis without mention of hemorrhage 01/03/2015 Gastroesophageal reflux disease 12/26/2009 01/10/2021 documented as of this encounter (statuses as of 05/03/2022) [facility] of Past illness Narrative* Problem Noted Date Resolved Date History of colonic polyps 01/10/20212020 Abdominal bloating 01/10/2021 01/10/2021 Alcohol dependence in remission 07/10/2015 11/02/2018 Pancreatitis chronic 05/26/2011 08/27/2017 Acute gastritis without mention of hemorrhage 01/03/2015 Gastroesophageal reflux disease 12/26/2009 01/10/2021 documented as of this encounter (statuses as of 05/16/2022) [facility] of Past illness Narrative* Problem Noted Date Resolved Date History of colonic polyps 01/10/20212020 Abdominal bloating 01/10/2021 01/10/2021 Alcohol dependence in remission 07/10/2015 11/02/2018 Pancreatitis chronic 05/26/2011 08/27/2017 Acute gastritis without mention of hemorrhage 01/03/2015 Gastroesophageal reflux disease 12/26/2009 01/10/2021 documented as of this encounter (statuses as of 05/22/2022) [facility] of Past illness Narrative* Problem Noted Date Resolved Date History of colonic polyps 01/10/20212020 Abdominal bloating 01/10/2021 01/10/2021 Alcohol dependence in remission 07/10/2015 11/02/2018 Pancreatitis chronic 05/26/2011 08/27/2017 Acute gastritis without mention of hemorrhage 01/03/2015 Gastroesophageal reflux disease 12/26/2009 01/10/2021 documented as of this encounter (statuses as of 05/27/2022) [facility] of Past illness Narrative* Problem Noted Date Resolved Date History of colonic polyps 01/10/20212020 Abdominal bloating 01/10/2021 01/10/2021 Alcohol dependence in remission 07/10/2015 11/02/2018 Pancreatitis chronic 05/26/2011 08/27/2017 Acute gastritis without mention of hemorrhage 01/03/2015 Gastroesophageal reflux disease 12/26/2009 01/10/2021 documented as of this encounter (statuses as of 06/13/2022) [place] [address]-15-2021 History of Past illness Narrative* Problem Noted Date Resolved Date History of colonic polyps 01/10/20212020 Abdominal bloating 01/10/2021 01/10/2021 Alcohol dependence in remission 07/10/2015 11/02/2018 Pancreatitis chronic 05/26/2011 08/27/2017 Acute gastritis without mention of hemorrhage 01/03/2015 Gastroesophageal reflux disease 12/26/2009 01/10/2021 documented as of this encounter (statuses as of 06/25/2022) [facility] History of Past illness Narrative* Problem Noted Date Resolved Date History of colonic polyps 01/10/20212020 Abdominal bloating 01/10/2021 01/10/2021 Alcohol dependence in remission 07/10/2015 11/02/2018 Pancreatitis chronic 05/26/2011 08/27/2017 Acute gastritis without mention of hemorrhage 01/03/2015 Gastroesophageal reflux disease 12/26/2009 01/10/2021 documented as of this encounter (statuses as of 06/30/2022) [address]15-2021 History of Past illness Narrative* Problem Noted Date Resolved Date History of colonic polyps 01/10/20212020 Abdominal bloating 01/10/2021 01/10/2021 Alcohol dependence in remission 07/10/2015 11/02/2018 Pancreatitis chronic 05/26/2011 08/27/2017 Acute gastritis without mention of hemorrhage 01/03/2015 Gastroesophageal reflux disease 12/26/2009 01/10/2021 documented as of this encounter (statuses as of 07/18/2022) [facility] History of Past illness Narrative* Problem Noted Date Resolved Date History of colonic polyps 01/10/20212020 Abdominal bloating 01/10/2021 01/10/2021 Alcohol dependence in remission 07/10/2015 11/02/2018 Pancreatitis chronic 05/26/2011 08/27/2017 Acute gastritis without mention of hemorrhage 01/03/2015 Gastroesophageal reflux disease 12/26/2009 01/10/2021 documented as of this encounter (statuses as of 08/27/2022) [facility] History of Past illness Narrative* Problem Noted Date Resolved Date History of colonic polyps 01/10/20212020 Abdominal bloating 01/10/2021 01/10/2021 Alcohol dependence in remission 07/10/2015 11/02/2018 Pancreatitis chronic 05/26/2011 08/27/2017 Acute gastritis without mention of hemorrhage 01/03/2015 Gastroesophageal reflux disease 12/26/2009 01/10/2021 documented as of this encounter (statuses as of 11/12/2022) [facility] History of Past illness Narrative* Problem Noted Date Resolved Date History of colonic polyps 01/10/20212020 Abdominal bloating 01/10/2021 01/10/2021 Alcohol dependence in remission 07/10/2015 11/02/2018 Pancreatitis chronic 05/26/2011 08/27/2017 Acute gastritis without mention of hemorrhage 01/03/2015 Gastroesophageal reflux disease 12/26/2009 01/10/2021 documented as of this encounter (statuses as of 11/12/2022) [address]15-2021 History of Past illness Narrative* Problem Noted Date Resolved Date History of colonic polyps 01/10/20212020 Abdominal bloating 01/10/2021 01/10/2021 Alcohol dependence in remission 07/10/2015 11/02/2018 Pancreatitis chronic 05/26/2011 08/27/2017 Acute gastritis without mention of hemorrhage 01/03/2015 Gastroesophageal reflux disease 12/26/2009 01/10/2021 documented as of this encounter (statuses as of 11/25/2022) [facility]04-15-2021 History of Past illness Narrative* Problem Noted Date Resolved Date History of colonic polyps 01/10/20212020 Abdominal bloating 01/10/2021 01/10/2021 Alcohol dependence in remission 07/10/2015 11/02/2018 Pancreatitis chronic 05/26/2011 08/27/2017 Acute gastritis without mention of hemorrhage 01/03/2015 Gastroesophageal reflux disease 12/26/2009 01/10/2021 documented as of this encounter (statuses as of 11/26/2022) [facility]04-15-2021 History of Past illness Narrative* Problem Noted Date Resolved Date History of colonic polyps 01/10/20212020 Abdominal bloating 01/10/2021 01/10/2021 Alcohol dependence in remission 07/10/2015 11/02/2018 Pancreatitis chronic 05/26/2011 08/27/2017 Acute gastritis without mention of hemorrhage 01/03/2015 Gastroesophageal reflux disease 12/26/2009 01/10/2021 documented as of this encounter (statuses as of 11/27/2022) [facility]04-15-2021 History of Past illness Narrative* Problem Noted Date Resolved Date History of colonic polyps 01/10/20212020 Abdominal bloating 01/10/2021 01/10/2021 Alcohol dependence in remission 07/10/2015 11/02/2018 Pancreatitis chronic 05/26/2011 08/27/2017 Acute gastritis without mention of hemorrhage 01/03/2015 Gastroesophageal reflux disease 12/26/2009 01/10/2021 documented as of this encounter (statuses as of 11/27/2022) [facility]-15-2021 History of Past illness Narrative* Problem Noted Date Resolved Date History of colonic polyps 01/10/20212020 Abdominal bloating 01/10/2021 01/10/2021 Alcohol dependence in remission 07/10/2015 11/02/2018 Pancreatitis chronic 05/26/2011 08/27/2017 Acute gastritis without mention of hemorrhage 01/03/2015 Gastroesophageal reflux disease 12/26/2009 01/10/2021 documented as of this encounter (statuses as of 11/27/2022) [facility]-15-2021 History of Past illness Narrative* Problem Noted Date Resolved Date History of colonic polyps 01/10/20212020 Abdominal bloating 01/10/2021 01/10/2021 Alcohol dependence in remission 07/10/2015 11/02/2018 Pancreatitis chronic 05/26/2011 08/27/2017 Acute gastritis without mention of hemorrhage 01/03/2015 Gastroesophageal reflux disease 12/26/2009 01/10/2021 documented as of this encounter (statuses as of 11/28/2022) [facility]-15-2021 History of Past illness Narrative* Problem Noted Date Resolved Date History of colonic polyps 01/10/20212020 Abdominal bloating 01/10/2021 01/10/2021 Severe protein-calorie malnutrition 01/07/2019 12/26/2022 Alcohol dependence in remission 07/10/2015 11/02/2018 Pancreatitis chronic 05/26/2011 08/27/2017 Acute gastritis without mention of hemorrhage 01/03/2015 Gastroesophageal reflux disease 12/26/2009 01/10/2021 documented as of this encounter (statuses as of 12/31/2022) [facility]15-2021 History of Past illness Narrative* Problem Noted Date Resolved Date History of colonic polyps 01/10/20212020 Abdominal bloating 01/10/2021 01/10/2021 Severe protein-calorie malnutrition 01/07/2019 12/26/2022 Alcohol dependence in remission 07/10/2015 11/02/2018 Pancreatitis chronic 05/26/2011 08/27/2017 Acute gastritis without mention of hemorrhage 01/03/2015 Gastroesophageal reflux disease 12/26/2009 01/10/2021 documented as of this encounter (statuses as of 03/13/2023) [facility]15-2021 History of Past illness Narrative* Problem Noted Date Resolved Date History of colonic polyps 01/10/20212020 Abdominal bloating 01/10/2021 01/10/2021 Severe protein-calorie malnutrition 01/07/2019 12/26/2022 Alcohol dependence in remission 07/10/2015 11/02/2018 Pancreatitis chronic 05/26/2011 08/27/2017 Acute gastritis without mention of hemorrhage 01/03/2015 Gastroesophageal reflux disease 12/26/2009 01/10/2021 documented as of this encounter (statuses as of 03/24/2023) [facility]15-2021 History of Past illness Narrative* Problem Noted Date Diagnosed Date Resolved Date History of colonic polyps 01/10/2021 Abdominal bloating 01/10/2021 Severe protein-calorie malnutrition 01/07/2019 12/26/2022 Alcohol dependence in remission 07/10/2015 11/02/2018 Pancreatitis chronic 05/26/2011 017 Acute gastritis without mention of hemorrhage 10/03/19 11 01/03/2015 Gastroesophageal reflux disease 12/26/2009 01/10/2021 documented as of this encounter (statuses as of 04/15/2023) [facility]15[facility]2021 History of Past illness Narrative* Problem Noted Date Diagnosed Date Resolved Date History of colonic polyps 01/10/2021 Abdominal bloating 01/10/2021 Severe protein-calorie malnutrition 01/07/2019 12/26/2022 Alcohol dependence in remission 07/10/2015 11/02/2018 Pancreatitis chronic 05/26/2011 017 Acute gastritis without mention of hemorrhage 10/03/19 11 01/03/2015 Gastroesophageal reflux disease 12/26/2009 01/10/2021 documented as of this encounter (statuses as of 05/19/2023) [facility]15-2021 History of Past illness Narrative* Problem Noted Date Diagnosed Date Resolved Date History of colonic polyps 01/10/2021 Abdominal bloating 01/10/2021 Severe protein-calorie malnutrition 01/07/2019 12/26/2022 Alcohol dependence in remission 07/10/2015 11/02/2018 Pancreatitis chronic 05/26/2011 017 Acute gastritis without mention of hemorrhage 10/03/19 11 01/03/2015 Gastroesophageal reflux disease 12/26/2009 01/10/2021 documented as of this encounter (statuses as of 06/08/2023) [address]15-2021 History of Past illness Narrative* Problem Noted Date Diagnosed Date Resolved Date History of colonic polyps 01/10/2021 Abdominal bloating 01/10/2021 Severe protein-calorie malnutrition 01/07/2019 12/26/2022 Alcohol dependence in remission 07/10/2015 11/02/2018 Pancreatitis chronic 05/26/2011 017 Acute gastritis without mention of hemorrhage 10/03/19 11 01/03/2015 Gastroesophageal reflux disease 12/26/2009 01/10/2021 documented as of this encounter (statuses as of 06/10/2023) [facility]15-2021 History of Past illness Narrative* Problem Noted Date Diagnosed Date Resolved Date History of colonic polyps 01/10/2021 Abdominal bloating 01/10/2021 Severe protein-calorie malnutrition 01/07/2019 12/26/2022 Alcohol dependence in remission 07/10/2015 11/02/2018 Pancreatitis chronic 05/26/2011 017 Acute gastritis without mention of hemorrhage 10/03/19 11 01/03/2015 Gastroesophageal reflux disease 12/26/2009 01/10/2021 documented as of this encounter (statuses as of 06/12/2023) [address]15-2021 History of Past illness Narrative* Problem Noted Date Diagnosed Date Resolved Date History of colonic polyps 01/10/2021 Abdominal bloating 01/10/2021 Severe protein-calorie malnutrition 01/07/2019 12/26/2022 Alcohol dependence in remission 07/10/2015 11/02/2018 Pancreatitis chronic 05/26/2011 017 Acute gastritis without mention of hemorrhage 10/03/19 11 01/03/2015 Gastroesophageal reflux disease 12/26/2009 01/10/2021 documented as of this encounter (statuses as of 07/10/2023) [address]15-2021 History of Past illness Narrative* Problem Noted Date Diagnosed Date Resolved Date History of colonic polyps 01/10/2021 Abdominal bloating 01/10/2021 Severe protein-calorie malnutrition 01/07/2019 12/26/2022 Alcohol dependence in remission 07/10/2015 11/02/2018 Pancreatitis chronic 05/26/2011 017 Acute gastritis without mention of hemorrhage 10/03/19 11 01/03/2015 Gastroesophageal reflux disease 12/26/2009 01/10/2021 documented as of this encounter (statuses as of 11/04/2023) [facility]15-2021 History of Past illness Narrative* Problem Noted Date Diagnosed Date Resolved Date History of colonic polyps 01/10/2021 Abdominal bloating 01/10/2021 Severe protein-calorie malnutrition 01/07/2019 12/26/2022 Alcohol dependence in remission 07/10/2015 11/02/2018 Pancreatitis chronic 05/26/2011 017 Acute gastritis without mention of hemorrhage 10/03/19 11 01/03/2015 Gastroesophageal reflux disease 12/26/2009 01/10/2021 documented as of this encounter (statuses as of 12/17/2023) [facility]15-2021 History of Past illness Narrative* Problem Noted Date Diagnosed Date Resolved Date History of colonic polyps 01/10/2021 Abdominal bloating 01/10/2021 Severe protein-calorie malnutrition 01/07/2019 12/26/2022 Alcohol dependence in remission 07/10/2015 11/02/2018 Pancreatitis chronic 05/26/2011 017 Acute gastritis without mention of hemorrhage 10/03/1901/03/2015 Gastroesophageal reflux disease 12/26/2009 01/10/2021 documented as of this encounter (statuses as of 01/07/2024) [facility]15-2021 History of Past illness Narrative* Problem Noted Date Diagnosed Date Resolved Date History of colonic polyps 01/10/2021 Abdominal bloating 01/10/2021 Severe protein-calorie malnutrition 01/07/2019 12/26/2022 Alcohol dependence in remission 07/10/2015 11/02/2018 Pancreatitis chronic 05/26/2011 017 Acute gastritis without mention of hemorrhage 10/03/19 11 01/03/2015 Gastroesophageal reflux disease 12/26/2009 01/10/2021 documented as of this encounter (statuses as of 01/07/2024) [address]15-2021 History of Past illness Narrative* Problem Noted Date Diagnosed Date Resolved Date History of colonic polyps 01/10/2021 Abdominal bloating 01/10/2021 Severe protein-calorie malnutrition 01/07/2019 12/26/2022 Alcohol dependence in remission 07/10/2015 11/02/2018 Pancreatitis chronic 05/26/2011 017 Acute gastritis without mention of hemorrhage 10/03/19 11 01/03/2015 Gastroesophageal reflux disease 12/26/2009 01/10/2021 documented as of this encounter (statuses as of 01/13/2024) [facility]15-2021 History of Past illness Narrative* Problem Noted Date Diagnosed Date Resolved Date History of colonic polyps 01/10/2021 Abdominal bloating 01/10/2021 Severe protein-calorie malnutrition 01/07/2019 12/26/2022 Alcohol dependence in remission 07/10/2015 11/02/2018 Pancreatitis chronic 05/26/2011 017 Acute gastritis without mention of hemorrhage 10/03/19 11 01/03/2015 Gastroesophageal reflux disease 12/26/2009 01/10/2021 documented as of this encounter (statuses as of 01/13/2024) [facility] Author Jeferson Breaux [facility] Note Date/Time December 12, 2024 6:2 5pm [facility] Medical Records Department [address] [facility] [place] [address] Anesthesia Postop Eval II 12/12/24 1751 MR#: [id number] Acct: [id number] Name: GRACIE BANUELOS Rep #:[id number] : 1965 59 From: Jeferson Breaux MD PCP: Dr. Misbah Elkins MD Status:ADM I N Y Race: C Location: [place] [address] 3-1 Anesthesia Postop Eval I Sum Postop Eval Completion status Anesthesia document: Postop Eval 1 completed: Yes Anesthesia Postop Eval I Summary Anesthesia Postop Eval I Summary: Anesthesia Postop Eval I: Assessment Summary Airway patent Yes 12/12/24 13:08 DISTRIBUTION [email or web address] Spontaneous unlabored Yes 12/12/24 13:08 DISTRIBUTION SPECIALIST.[email or web address] respirations Mental status Awake,Calm 12/12/24 13:08 DISTRIBUTION SPECIALIST.[email or web address] nausea No 12/12/24 13:08 DISTRIBUTION SPECIALIST.[email or web address] Vomiting No 12/12/24 13:08 DISTRIBUTION SPECIALIST.[email or web address] Anesthesia Postop Eval I: Fluid Summary Crystalloid volume administer 30 12/12/24 13:08 DISTRIBUTION SPECIALIST.[email or web address] (ml) Colloids volume administered ( ml) Blood Product volume administered (ml) Total IV fluid infused 30 12/12/24 13:08 DISTRIBUTION SPECIALIST.[email or web address] Anesthesia Postop Eval I: Summary Notes Anesthesia Complication No 12/12/24 13:08 DISTRIBUTION SPECIALIST.[email or web address] Anesthesia Complication Comment: Post-operative progress note Anesthesia: Postop Eval II Evaluation Mental status: Awake and Calm Pain Level: 1 nausea: No Vomiting: No Complications Anesthesia Complication: No 12/12/24 0671 <Electronically signed by Jeferson carranza MD> Date _ Jeferson Breaux MD Cosigner Signature: Date CC: ~ Signed [facility] Work Phone: Discharge summary Author Dr. Bonilla [facility] November 07, 2022 12:09pm Note Date/Time November 07, 2022 12:09pm [facility] Medical Records Department [address] [place] [id number] Instructions for Home/Discharge Instructions 11/07/22 1208 MR#: [id number] Acct: [id number] Name: GRACIE BANUELOS Rep #:[id number] : 1965 57 From: Anastacia Bonilla MD PCP: CARMEN STAHL Status:ADM IN Discharge Instructions Diet Discharge Diet: [...] by Anastacia Bonilla MD>Anastacia Bonilla MD CC: POLYSTYRENE MOLDING MACHINE TENDERSierraC Ani Eduardo; POLYSTYRENE MOLDING MACHINE TENDER-C SOILA EASTON; Dr. Ciarra Ross MD; Dr. Freddie Perdue MD; Dr. Gonzalo Sebastian DO; Dr. Courtney Iverson MD; Dr. Olivier Coffman MD; Dr. Lisa Ochoa MD; Dr. Dieter Harrison MD ~ Signed [facility] Work Phone: Discharge summary Author Dr. Bonilla [facility] November 07, 2022 1:26pm Note Date/Time November 07, 2022 12:20pm [facility] Medical Records Department [address] [place] [address] Discharge Summary 11/07/22 1209 MR#: [id number] Acct: [id number] Name: GRACIE BANUELOS Rep #:[id number] : 1965 57 From: Anastacia Bonilla MD PCP: CARMEN STAHL Status:ADM IN Location: [place] [address] Providers Date of Admission: 11/01/22 Date of Discharge: 11/07/22 Primary Care Physician: CARMEN STAHL Consultations 11/02/22 20:18 Consult: Paint Stock Clerk / Pulmonary Medicine Routine Consulting Provider: Pulmonary Medicine [facility] Reason for Consult: respiratory failure. COPD [...] 0.5 inch RIGHT EYE Q6H antibiotic 11/01/22 [id number] 24,000-76,000-120,000 unit capsule,delayed rel (Creon) 1cap PO [...] note, patient had recently been discharged from [facility] after she was transferred there from [facility] for acute ophthalmology evaluation due to right [...] Neut % (Auto) 59.2, Lymph % (Auto)19.9, [place] % (Auto) 13.8 H, Eos % (Auto) [...] Coffman ; Dieter Harrison ; Ani Eduardo POLYSTYRENE MOLDING MACHINE TENDER ; Courtney Iverson Instructions Patient Instructions: Acute [...] Up: Misbah Elkins MD [Med Staff - Chaplaincy] - 11/11/22 4:00 pm Disposition Disposition (needs filled in before D/C Order can be placed): Home, Self Care Charges/Coding Visit Charges Inpatient E&M: 56188 Disch Hosp >30min 11/07/22 1326 <Electronically signed by Anastacia Bonilla MD> Cosigner Signature (if applicable): CC: POLYSTYRENE MOLDING MACHINE TENDERMiriam EASTON; Dr. Anastacia Bonilla MD~ Signed [facility] Work Phone: Evaluation note* Diagnosis Essential hypertension, benign documented in this encounter [facility] note* Diagnosis MICKEY (generalized anxiety disorder) Generalized anxiety disorder Hyperlipidemia, unspecified hyperlipidemia type documented in this encounter [facility] note* Diagnosis Onset Date Resolution Status Chronic respiratory failure with hypoxia chronic Smoking greater than 30 pack years chronic Stage 3 severe COPD by GOLD classification chronic [facility] Work Phone: Evaluation note* Diagnosis Vitamin D deficiency Unspecified vitamin D deficiency Alcohol-induced chronic pancreatitis (HCC) Chronic pancreatitis [facility]* Diagnosis Hyperlipidemia, unspecified hyperlipidemia type MICKEY (generalized anxiety disorder) Generalized anxiety disorder documented in this encounter [facility] note* Diagnosis Essential hypertension, benign- Primary Hyperlipidemia, unspecified hyperlipidemia type Chronic fatigue Other malaise and fatigue Alcoholic hepatitis without ascites Acute alcoholic hepatitis Alcohol-induced chronic pancreatitis (HCC) Chronic pancreatitis Iron deficiency Iron deficiency anemia, unspecified Vitamin D deficiency Unspecified vitamin D deficiency MICKEY (generalized anxiety disorder) Generalized anxiety disorder Reactive depression Dysthymic disorder documented in this encounter [facility] note* Diagnosis Vitamin D deficiency Unspecified vitamin D deficiency documented in this encounter [facility] note* Diagnosis Alcohol-induced chronic pancreatitis (HCC) Chronic pancreatitis Alcoholic hepatitis without ascites Acute alcoholic hepatitis documented in this encounter [facility] note* Diagnosis Alcohol-induced chronic pancreatitis (HCC) Chronic pancreatitis Alcoholic hepatitis without ascites Acute alcoholic hepatitis [facility] noteNo assessment information availableWC[facility] Work Phone: Evaluation note* Diagnosis Encounter for screening mammogram for breast cancer documented in this encounter [facility] note* Diagnosis Essential hypertension, benign- Primary Multiple joint pain Pain in joint, multiple sites Alcohol-induced chronic pancreatitis (HCC) Chronic pancreatitis Chronic obstructive pulmonary disease, unspecified COPD type (HCC) Right otitis media, unspecified otitis media type Need for influenza vaccination Need for prophylactic vaccination and inoculation against influenza [facility] Diagnosis Chronic obstructive pulmonary disease, unspecified COPD type (HCC)- Primary documented in this encounter [facility] note* Diagnosis Onset Date Resolution Status Chronic respiratory failure with hypoxia chronic Stage 3 severe COPD by GOLD classification [facility] Work Phone: Evaluation note* Diagnosis Inflammation [...] rash on her back, neck, and [facility] Diagnosis Inflammation of orbital region- Primary Unspecified chronic inflammation of orbit [facility]* Diagnosis Onset Date Resolution Status Chronic respiratory failure with hypoxia chronic Stage 3 severe COPD by GOLD classification chronic Acute hyponatremia acute Acute kidney injury acute Diarrhea acute Nausea & vomiting acute Stage 3 severe COPD by GOLD classification [facility] Work Phone: Evaluation note* Diagnosis CHUY (acute kidney injury) (HCC)- Primary Acute kidney failure, unspecified Chronic obstructive pulmonary disease, unspecified COPD type (HCC) Alcohol use disorder, moderate, dependence (HCC) Essential hypertension, benign Hyperlipidemia, unspecified hyperlipidemia type Tobacco use disorder Reactive depression Dysthymic disorder Moderate episode of recurrent major depressive disorder (HCC) Alcohol-induced chronic pancreatitis (HCC) Chronic pancreatitis [facility]* Diagnosis Numbness and tingling of both lower extremities- Primary CHUY (acute kidney injury) (HCC) Acute kidney failure, unspecified Essential hypertension, benign Hyperlipidemia, unspecified hyperlipidemia type documented in this encounter [facility] note* Diagnosis Neuropathy- Primary Mononeuritis of unspecified site Numbness and tingling of both lower extremities Numbness and tingling of both feet Claustrophobia Other isolated or specific phobias [facility]* Diagnosis CHUY (acute kidney injury) (HCC)- Primary Acute kidney failure, unspecified documented in this encounter [facility] note* Diagnosis Cellulitis of right orbital region- Primary Orbital cellulitis CHUY (acute kidney injury) (HCC) Acute kidney failure, unspecified Uncontrolled hypertension Unspecified essential hypertension Tobacco abuse, in remission Personal history of tobacco use, presenting hazards to [facility] Lung mass Swelling, mass, or lump in chest documented in this encounter [facility]* Diagnosis Prediabetes- Primary Other abnormal glucose [facility]* Diagnosis Thrush Candidiasis of mouth [facility]* Diagnosis Hyperlipidemia Other and unspecified hyperlipidemia [facility]* Diagnosis Hyperlipidemia, unspecified hyperlipidemia type [facility]* Diagnosis Arthralgia of right temporomandibular joint- Primary Arthralgia of temporomandibular joint Insomnia, unspecified type Nausea Nausea alone Alcohol use disorder, moderate, dependence (HCC) documented in this encounter [facility] note* Diagnosis Encounter for screening mammogram for breast cancer documented in this encounter [facility] note* Diagnosis Vitamin D deficiency Unspecified vitamin D deficiency documented in this encounter [facility] note* Diagnosis Onset Date Resolution Status Asthma chronic Chronic respiratory failure with hypoxia chronic COPD (chronic obstructive pulmonary disease) chronic Smoking greater than 30 pack years [facility] Work Phone: Evaluation note* Diagnosis Tachycardia- Primary Tachycardia, unspecified Alcohol-induced chronic pancreatitis (HCC) Chronic pancreatitis Hyperlipidemia, unspecified hyperlipidemia type Insomnia, unspecified type Vitamin D deficiency Unspecified vitamin D deficiency Chronic obstructive pulmonary disease, unspecified COPD type (HCC) Prediabetes Other abnormal glucose [facility]* Diagnosis Onset Date Resolution Status Pleurisy acute Pneumonia acute Acute on chronic hypoxic respiratory failure chronic COPD (chronic obstructive pulmonary disease) [facility] Work Phone: evaluation note* Diagnosis Essential hypertension, benign- Primary Hyponatremia Hyposmolality and/or hyponatremia Leukocytosis, unspecified type COPD with exacerbation (HCC) Obstructive chronic bronchitis with exacerbation Pneumonia due to infectious organism, unspecified laterality, unspecified part of lung documented in this encounter [facility] note* Diagnosis Onset Date Resolution Status Pleurisy acute COPD (chronic obstructive pulmonary disease) [facility] Work Phone: evaluation note* Diagnosis Chronic obstructive pulmonary disease, unspecified COPD type (HCC) [facility]* Diagnosis Nausea Nausea alone documented in this encounter [facility] note* Diagnosis Pneumonia due to infectious organism, unspecified laterality, unspecified part of lung- Primary Acute right ankle pain documented in this encounter [facility] note* Diagnosis Hyperlipidemia, unspecified hyperlipidemia type Vitamin D deficiency Unspecified vitamin D deficiency Chronic obstructive pulmonary disease, unspecified COPD type (HCC) documented in this encounter [facility] note* Diagnosis Chronic obstructive pulmonary disease, unspecified COPD type (HCC) documented in this encounter [facility] note* Diagnosis Chronic obstructive pulmonary disease, unspecified COPD type (HCC) documented in this encounter [facility] note* Diagnosis Chronic obstructive pulmonary disease, unspecified COPD type (HCC) [facility] Diagnosis Encounter for screening mammogram for breast cancer [facility]* Diagnosis Anxiety- Primary Anxiety state, unspecified Alcohol-induced chronic pancreatitis (HCC) Chronic pancreatitis Chronic obstructive pulmonary disease, unspecified COPD type (HCC) Essential hypertension Unspecified essential hypertension [facility]* Diagnosis Pneumonia due to infectious organism, unspecified laterality, unspecified part of lung Acute right ankle pain documented in this encounter [facility] note* Diagnosis Chronic obstructive pulmonary disease, unspecified COPD type (HCC) [facility]* Diagnosis Numbness and tingling of both lower extremities [facility] Diagnosis Chronic obstructive pulmonary disease, unspecified COPD type (HCC) [facility]* Diagnosis Chronic obstructive pulmonary disease, unspecified COPD type (HCC) [facility]* Diagnosis Anxiety- Primary Anxiety state, unspecified Alcohol-induced chronic pancreatitis (HCC) Chronic pancreatitis Nausea Nausea alone Encounter for immunization Need for other specified prophylactic vaccination against single bacterial disease Insomnia, unspecified type Leukocytosis, unspecified type [facility]* Diagnosis Shortness of breath- Primary Chronic obstructive pulmonary disease with acute exacerbation (HCC) Obstructive chronic bronchitis with exacerbation Upper abdominal pain Abdominal pain, other specified site Nausea Nausea alone Urinary incontinence, unspecified type Urinary frequency Elevated glucose Other abnormal glucose Tobacco use disorder Pulmonary emphysema, unspecified emphysema type (HCC) [facility]* Diagnosis Shortness of breath Chronic obstructive pulmonary disease with acute exacerbation (HCC) Obstructive chronic bronchitis with exacerbation Tobacco use disorder Pulmonary emphysema, unspecified emphysema type (HCC) [facility]* Diagnosis Chronic obstructive pulmonary disease, unspecified COPD type (HCC)- Primary Generalized abdominal tenderness without rebound tenderness Upper abdominal pain Abdominal pain, other specified site Elevated lipase Other nonspecific abnormal serum enzyme levels Nausea Nausea alone Alcoholic hepatitis without ascites Acute alcoholic hepatitis Alcohol use disorder, moderate, dependence (HCC) Acute pancreatitis, unspecified complication status, unspecified pancreatitis type [facility]* Diagnosis Chronic obstructive pulmonary disease, unspecified COPD type (HCC) [facility]* Diagnosis Alcoholic hepatitis without ascites Acute alcoholic hepatitis Acute pancreatitis, unspecified complication status, unspecified pancreatitis type Upper abdominal pain Abdominal pain, other specified site Nausea Nausea alone Elevated lipase Other nonspecific abnormal serum enzyme levels Generalized abdominal tenderness without rebound tenderness documented in this encounter [facility] note* Diagnosis Vitamin D deficiency Unspecified vitamin D deficiency documented in this encounter [facility] note* Diagnosis Alcohol-induced chronic pancreatitis (HCC)- Primary Chronic pancreatitis Chronic recurrent pancreatitis (HCC) Chronic pancreatitis Chronic RUQ pain Abdominal pain, right upper quadrant Abdominal bloating Flatulence, eructation, and gas pain Nausea Nausea alone Gastroesophageal reflux disease without esophagitis Esophageal reflux documented in this encounter [facility] note* Diagnosis Cough with sputum- Primary Cough Essential hypertension Unspecified essential hypertension COPD with exacerbation (HCC) Obstructive chronic bronchitis with exacerbation COPD with exacerbation (HCC) Obstructive chronic bronchitis with exacerbation documented in this encounter [facility] note* Diagnosis COPD with exacerbation (HCC) Obstructive chronic bronchitis with exacerbation documented in this encounter [facility] note* Diagnosis Other chronic pancreatitis (HCC)- Primary documented in this encounter [facility] note* Diagnosis Chronic recurrent pancreatitis (HCC) Chronic pancreatitis Alcohol-induced chronic pancreatitis (HCC) Chronic pancreatitis Chronic RUQ pain Abdominal pain, right upper quadrant documented in this encounter [facility] note* Diagnosis Hyperlipidemia Other and unspecified hyperlipidemia documented in this encounter [facility] note* Diagnosis Hospital discharge follow-up- Primary Other follow-up examination Chronic recurrent pancreatitis (HCC) Chronic pancreatitis Chronic obstructive pulmonary disease, unspecified COPD type (HCC) Dysphagia, unspecified type Essential hypertension, benign Tobacco use disorder Smoker Tobacco use disorder documented in this encounter [facility] note* Diagnosis Chronic recurrent pancreatitis (HCC) Chronic pancreatitis Chronic obstructive pulmonary disease, unspecified COPD type (HCC) Hospital discharge follow-up Other follow-up examination documented in this encounter [facility] note* Diagnosis Onset Date Resolution Status Admit Date Acute hypoxic respiratory failure acute December 04, 2024 6:03pm Chronic pancreatitis chronic Lino h 2024 6:03pm COPD with acute exacerbation chronic December 04, 2024 6:03pm [facility] Work Phone: Evaluation note* Diagnosis Chronic obstructive pulmonary disease with acute exacerbation (HCC) Obstructive chronic bronchitis with exacerbation documented in this encounter [facility] note* Diagnosis Gout, unspecified cause, unspecified chronicity, unspecified site- Primary Calculus of pancreatic duct (HCC) Other specified disease of pancreas Chronic recurrent pancreatitis (HCC) Chronic pancreatitis Chronic obstructive pulmonary disease, unspecified COPD type (HCC) Pulmonary emphysema, unspecified emphysema type (HCC) Tobacco use disorder documented in this encounter [facility] note* Diagnosis Nausea Nausea alone documented in this encounter [facility] note* Diagnosis Hyperlipidemia, unspecified hyperlipidemia type documented in this encounter [facility] note* Diagnosis Other chronic pancreatitis (HCC) documented in this encounter [facility] note* Diagnosis Chronic recurrent pancreatitis (HCC)- Primary Chronic pancreatitis documented in this encounter [facility] note* Diagnosis Hospital discharge follow-up- Primary Other follow-up examination Acute respiratory failure with hypoxia (HCC) Acute respiratory failure Chronic recurrent pancreatitis (HCC) Chronic pancreatitis Norovirus Enteritis due to [place] virus Pneumonia of both lungs due to infectious organism, unspecified part of lung Presence of pancreatic duct stent Alcoholic hepatitis without ascites (HCC) Acute alcoholic hepatitis Alcohol use disorder, moderate, dependence (HCC) documented in this encounter [facility] note* Diagnosis Chronic recurrent pancreatitis (HCC)- Primary Chronic pancreatitis documented in this encounter [facility] note* Diagnosis Subclavian arterial stenosis- Primary Stricture of artery Stenosis of left carotid artery Occlusion and stenosis of carotid artery without mention of cerebral infarction Acute pancreatitis without infection or necrosis, unspecified pancreatitis type (HCC) Hypertensive crisis Unspecified essential hypertension Chronic obstructive pulmonary disease with acute lower respiratory infection (HCC) Obstructive chronic bronchitis with exacerbation Respiratory failure with hypoxia, unspecified chronicity (HCC) documented in this encounter [facility] note* Diagnosis Chronic pancreatitis, unspecified pancreatitis type (HCC)- Primary Generalized abdominal pain Abdominal pain, generalized [facility] Author Carin Meraz [facility] January 02, 2024 10:42pm Note Date/Time January 02, 2024 10:1 0pm [facility] Medical Records Department [address] [place] [address] H&P Exam - Hospitalist 01/02/24 2208 MR#: [id number] Acct: [id number] Name: GRACIE BANUELOS Rep #:[id number] : 1965 58 From: Carin Meraz MD PCP: Anat Easton, POLYSTYRENE MOLDING MACHINE TENDER-C Status:ADM IN [place]: [facility] AY220-0 HPI - General General Date of Admission: 01/02/24 Date of Service: 01/02/24 Chief Complaint: URI sxs, cough, dyspnea, worsening. HPI Narrative The patient is a 58 y/o F w/ PMHx: EtOH abuse, Tobacco use, COPD/Asthma w/ Chronic Hypoxic Respiratory Failure (PRN), HTN, HLD, Chronic anemia, Anxiety andDepression, Chronic pancreatitis associated with EtOH abuse who presents to the [facility] on 01/02/24 with history of onset [...] 1, Rocephin 1 g IV x 1. [facility] Medical History Anemia Anxiety and depression Arthritis [...] DAILY BP 11/01/22 [History Last Taken Unknown] [id number] 24,000-76,000-120,000 unit capsule,delayed rel (Creon) 1cap PO [...] Allergy Other Verified 01/02/24 18:59 hydrocodone [From [place]] AdvReac Itching Verified 01/02/24 18:59 Family History [...] 81.7 H, Lymph % (Auto) 9.6 L, [place] % (Auto) 6.9, Eos % (Auto) 0.6, [...] with EtOH abuse who presents to the [facility] on 01/02/24 with history of onset [...] Patient does not have healthcare power of divorce attorney or living will in place but [...] Time: 16minutes. Charges/Coding Visit Charges Inpatient E&M: 64478 Init Hosp L3 Procedures Hospitalists Procedures: 10117 Advncd Care Plan 30 Min 01/02/24 2242 <Electronically signed by Carin Meraz MD> Cosigner Signature (if applicable): CC: CARMEN Coppola Older; Dr. Carin Meraz MD~ Signed [facility] Work Phone: History and physical note Author Pako Fernández [facility] Note Date/Time March 13, 2025 11:2 8pm [facility] Medical Records Department [address] [place] [address] History & Physical Exam 03/13/25 2320 MR#: [id number] Acct: [id number] Name: GRACIE BANUELOS Rep #:[id number] : 1965 59 From: Pako Fernández MD [...] several months. She was recently admitted to [facility] and treated by GI specialist Dr. Portillo. She had a surgery performed for her pancreatitis and a stent was placed this past Thursday. Patient states she has had worsening epigastric abdominal pain since discharge on Thursday. She denies fever, chills, shortness of breath, chest pain, diarrhea constipation or dysuria. Patient has been accepted to [facility] for transferfrom the emergency room, however, a bed is not available this evening and patient will be admitted temporarily in our facility while pending transfer to tertiary care facility to address pancreatic stent and acute pancreatitis. [facility] Medical History (Reviewed 02/08/25 @ 13:18 by Ani Eduardo POLYSTYRENE MOLDING MACHINE TENDER, POLYSTYRENE MOLDING MACHINE TENDER-C) Stenosis of left subclavian artery Pulmonary nodule [...] Allergy Other Verified 02/26/25 13:57 hydrocodone (From [place]) AdvReac Itching Verified 02/26/25 13:57 Family History (Reviewed 02/08/25 @ 13:18 by Ani Eduardo POLYSTYRENE MOLDING MACHINE TENDER, POLYSTYRENE MOLDING MACHINE TENDER-C) Mother Diabetes Hypertension Heart disease High cholesterol Arthritis Thyroid disorder Brother Hypertension Sister Cancer cervical Thyroid disorder Father Kidney disease Daughter Thyroid disorder Surgical History (Reviewed 02/08/25 @ 13:18 by Ani Eduardo POLYSTYRENE MOLDING MACHINE TENDER, POLYSTYRENE MOLDING MACHINE TENDER-C) History of tubal ligation History of colonoscopy History of appendectomy Social History (Reviewed 02/08/25 @ 13:18 by Ani Eduardo POLYSTYRENE MOLDING MACHINE TENDER, POLYSTYRENE MOLDING MACHINE TENDER-C) household members: family Smoking Status: Current every [...] (Auto) 83.5 H, Lymph% (Auto) 6.3 L, [place] % (Auto) 8.1, Eos % (Auto) 0.5, [...] Clarity Clear, Urine pH 7.0, Ur Specific [place] 1.005, Urine Protein 30 H, Urine Glucose [...] at the time of dictation. Reading Location: [facility] Chest X-Ray 03/13/25 12:40 IMPRESSION: No evidence of acute cardiopulmonary pathology. Reading Location: [facility] Assessment & Plan Assessment/Plan (1) Smoking greater than 30 pack years: (2) COPD (chronic obstructive pulmonary disease): QUALIFIERS: COPD type: emphysema Emphysema type: centrilobular Qualified Code(s): J43.2 - Centrilobular emphysema (3) Abdominal pain: (4) Chronic pancreatitis: QUALIFIERS: Pancreatitis type: alcohol induced Qualified Code(s):K86.0 - Alcohol-induced chronic pancreatitis PLAN: Plan 1. Acute on chronic pancreatitis?admit patient temporarily to our facility pending transfer to [facility], make n.p.o., IV normal saline at [...] Elkins MD; Dr. Pako Fernández MD~ Signed [facility] Work Phone: Hospital Discharge instructions* Activity:activity as tolerated. * Labs 1 (Modify Template):Lab Test(s): RFPDate To Be Drawn: 10/30/22Call Results To: Soila Easton BOX TOE MAKER or Fax Results To: [phone]: PCP consider monitoring improvement of CHUY upon recent hospital admission * Oxygen:Administer oxygen at 2 liters/min via nasal cannula to maintain SpO2 % of 88-92 with activity. * Additional Orders:Additional Instructions: Dear Max Vin,You presented to us as transfer from [facility] for a possible biopsy of the right [...] with Primary Care ProviderScheduled Date/Time: 15-Dec-2022 16:00Location: [address] [place] [address], [place] [address] faxPhone Number: [phone]: Please bring your insurance card, photo id, a list of medication in the original bottle, any co-pays you may have, and the discharge summary * Follow Up Appointment 2:Physician/Dept/Service: Ophthalmology: Dr Marsheduled Date/Time: 03-Dec-2022 15:30Location: [facility] [address] , [address] [facility] [address]Lymtp Number: [phone]: Please bring your insurance card, photo id, a list of medication in the original bottle, any co-pays you may have, and the discharge summary * Follow Up Appointment 3:Physician/Dept/Service: Soila Easton, CNPLocation: [phone] [facility] [address]Qenqo [facility]: [facility] Additional Instructions Take medications as prescribed. Follow-up with your doctor.[facility] Work Phone: Hospital Discharge instructions Additional Instructions Follow-up with pain management on January 05 as scheduled. Quit smoking. Return with fever, increased pain, new or worsening symptoms.[facility] Work Phone: Hospital Discharge instructions Additional Instructions Your blood work and CT are normal but I this is a flareup of your chronic pancreatitis. I prescribed more Zofran. Use tramadol as needed for breakthrough pain. Follow-up with your GI specialist.[facility] Work Phone: Reason for referral (narrative)* Diagnostic Procedure Only (Routine) - Authorized Specialty Diagnoses / Procedures Referred By Contac t Referred To Contact US IMAGING Diagnoses Alcohol-induced chronic pancreatitis (HCC) Alcoholic hepatitis without ascites Procedures US ABD RT UPPER QUADRANT US ABDOMINAL REAL TIME W/IMAGE LIMITED Soila Easton APRN.BOX TOE MAKER [address] [place] [address] Us Imaging Referral ID Status Reason Start Date Expiration Date Visits Requested Visits Authorized [id number] Authorized Auto-Generat ed Referral 04/17/2022 05/17/2023 1 1 * Consult, Test, Treat (Routine) - Authorized Specialty Diagnoses / Procedures Referred By Contac t Referred To Contact Gastroenterology Diagnoses Alcohol-induced chronic pancreatitis (HCC) Alcoholic hepatitis without ascites Procedures CONSULT TO GASTROENTEROLOGY OFFICE/OUTPATIENT NEW HIGH MDM 60-74 MINUTES Soila Easton APRN.CNP [address] [place] [address] Referral ID Status Reason Start Date Expiration Date Visits Requested Visits Authorized [id number] Authorized PCP Requested Referral 04/17/2022 04/17/2023 1 1 [facility] for referral (narrative)* Diagnostic Procedure Only (Routine) - Closed Specialty Diagnoses / Procedures Referred By Travis t Referred To Contact US IMAGING Diagnoses Alcohol-induced chronic pancreatitis (HCC) Alcoholic hepatitis without ascites Procedures US ABD RT UPPER QUADRANT US ABDOMINAL REAL TIME W/IMAGE LIMITED Soila Easton APRN.CNP [address] [place] [address] Us Imaging Referral ID Status Reason Start Date Expiration Date V isits Requested Visits Authorized [id number] Closed Auto-Generate d Referral 04/17/2022 05/17/2023 1 1 [facility] for referral (narrative)* Diagnostic Procedure Only (Routine) - Pending Review Specialty Diagnoses / Procedures Referred By Travis melendez Referred To Contact BR IMAGING Diagnoses Encounter for screening mammogram for breast cancer Procedures SIMI SCREENING SCREENING MAMMOGRAPHY BI 2-VIEW BREAST INC Misbah Chanel MD [address] [place] [address] Br Imaging [address] [place] [address] Referral ID Status Reason Start Date Expiration Date Visits Requested Visits Authorized [id number] Pending Review Auto-Generat ed Referral 06/25/2022 07/25/2023 1 1 [facility] for referral (narrative)* Outpatient Procedure (Routine) - Authorized Specialty Diagnoses / Procedures Referred By Travis t Referred To Contact [facility] Diagnoses Numbness and tingling of both lower extremities Neuropathy Numbness and tingling of both feet Procedures EMG(NEURO/NI) NERVE CONDUCTION STUDIES 9-10 STUDIES Mariluz Verduzco PA-C [address] [place] [address] [facility] [address] [place] [address] Referral ID Status Reason Start Date Expiration Date Visits Requested Visits Authorized [id number] Authorized Auto-Generat ed Referral 11/26/2022 09/27/2023 1 1 [facility] for referral (narrative)* Diagnostic Procedure Only (Routine) - Pending Review Specialty Diagnoses / Procedures Referred By Travis melendez Referred To Contact BR IMAGING Diagnoses Encounter for screening mammogram for breast cancer Procedures SIMI SCREENING SCREENING MAMMOGRAPHY BI 2-VIEW BREAST INC Misbah Chanel MD [address] [place] [address] Br Imaging [address] [place] [address] Referral ID Status Reason Start Date Expiration Date Visits Requested Visits Authorized [id number] Pending Review Auto-Generat ed Referral 06/03/2023 07/02/2024 1 1 T [facility] for referral (narrative)* Diagnostic Procedure Only (Routine) - New Request Specialty Diagnoses / Procedures Referred By Travis melendez Referred To Contact BR IMAGING Diagnoses Encounter for screening mammogram for breast cancer Procedures SIMI SCREENING W CYNTHIA SCREENING DIGITAL BREAST TOMOSYNTHESIS BI SCREENING MAMMOGRAPHY BI 2-VIEW BREAST INC Misbah Chanel MD [address] [place] [address] Br Imaging [address] [place] [address] Referral ID Status Reason Start Date Expiration Date Visits Requested Visits Authorized [id number] New Request Auto-Generat ed Referral 05/04/2024 06/03/2025 1 1 T [facility] for referral (narrative)* Diagnostic Procedure Only (Routine) - Closed Specialty Diagnoses / Procedures Referred By Travis melendez Referred To Contact XR IMAGING Diagnoses Numbness and tingling of both lower extremities Procedures XR LUMBAR GENERAL 3V AP/LAT/L5-S1 RADEX SPINE LUMBOSACRAL 2/3 VIEWS Misbah Elkins MD [address] [place] [address] [place] [address] Referral ID Status Reason Start Date Expiration Date V isits Requested Visits Authorized [id number] Closed Auto-Generate d Referral 11/25/2022 12/25/2023 1 1 [facility] for referral (narrative)* Diagnostic Procedure Only (Routine) - Authorized Specialty Diagnoses / Procedures Referred By Contac t Referred To Contact US IMAGING Diagnoses Upper abdominal pain Nausea Procedures US ABD RIGHT UPPER QUADRANT US ABDOMINAL REAL TIME W/IMAGE LIMITED Soila Easton APRN.BOX TOE MAKER [address] [place] [address] Us Imaging [place] [address] Referral ID Status Reason Start Date Expiration Date Visits Requested Visits Authorized [id number] Authorized Auto-Generat ed Referral 09/09/2025 1 1 NA [facility] for referral (narrative)* Outpatient Procedure (Routine) - New Request Specialty Diagnoses / Procedures Referred By Contac t Referred To Contact [facility] Diagnoses Chronic recurrent pancreatitis (HCC) Alcohol-induced chronic pancreatitis (HCC) Chronic RUQ pain Procedures EGD - THERAPEUTIC, EUS, OR TUBE INTERVENTIONS EGD TRANSORAL BIOPSY SINGLE/MULTIPLE Juan Senior APRN.BOX TOE MAKER [address] [place] [id number] [facility] [address] [place] [id number] Referral ID Status Reason Start Date Expiration Date Visits Requested Visits Authorized [id number] New Request Auto-Generat ed Referral 11/02/2024 11/02/2025 1 1 * Consult, Test, Treat (Routine) - Pending Review Specialty Diagnoses / Procedures Referred By Contac t Referred To Contact [facility] Diagnoses Chronic recurrent pancreatitis (HCC) Alcohol-induced chronic pancreatitis (HCC) Chronic RUQ pain Procedures [facility]SULT TO [facility]) OFFICE/OUTPATIENT NEW HIGH MDM 60 MINUTES Juan Senior APRN.BOX TOE MAKER [address] [facility] [place] [address] Referral ID Status Reason Start Date Expiration Date Visits Requested Visits Authorized [id number] Pending Review PCP Requested Referral 11/02/2024 01/31/2025 1 1 [facility] for referral (narrative)No reason for referral information availableWCleveland Clinic [facility] Work Phone: Reason for visit Narrative* Diagnostic Procedure Only (Routine) - Closed Specialty Diagnoses / Procedures Referred By Contac t Referred To Contact XR IMAGING Diagnoses Numbness and tingling of both lower extremities Procedures XR LUMBAR GENERAL 3V AP/LAT/L5-S1 RADEX SPINE LUMBOSACRAL 2/3 VIEWS Misbah Elkins MD [address] [place] [address] [place] [address] Referral ID Status Reason Start Date Expiration Date V isits Requested Visits Authorized [id number] Closed Auto-Generate d Referral 11/25/2022 12/25/2023 1 1 [facility] for visit Narrative* Outpatient Procedure (Routine) - Closed Specialty Diagnoses / Procedures Referred By Contac t Referred To Contact [facility] Diagnoses Chronic recurrent pancreatitis (HCC) Alcohol-induced chronic pancreatitis (HCC) Chronic RUQ pain Procedures EGD - THERAPEUTIC, EUS, OR TUBE INTERVENTIONS EGD TRANSORAL BIOPSY SINGLE/MULTIPLE Juan Senior APRN.CNP [address] [place] [address] Phone: tel: fax: [facility] [address] [address] Referral ID Status Reason Start Date Expiration Date V isits Requested Visits Authorized [id number] Closed Auto-Generate d Referral 11/02/2024 11/02/2025 1 1 [facility] for visit Narrative* Outpatient Procedure (Routine) - Closed Specialty Diagnoses / Procedures Referred By Contac t Referred To Contact [facility] Diagnoses Other chronic pancreatitis (HCC) Procedures ERCP ERCP DX COLLECTION SPECIMEN BRUSHING/WASHING Jane Farrell MD [address] [address] Phone: tel: fax: [facility] [address] [place] [address] Referral ID Status Reason Start Date Expiration Date V isits Requested Visits Authorized [id number] Closed Auto-Generate d Referral 12/06/2024 09/27/2025 1 1 [facility] Summary Purpose Family History No Family History [...] FoundDocuments on File Type Date Recorded Patient Shank Tapper Expl anation Advance Directive(s) 03/16/2025 3:08 PM Date Activated Date Inactivated Comments 03/15/2025 11:09 PM Question Answer Comments Full Code Order Discussed With: Discussion Not M edically Appropriate Documents on File Type Date Recorded Patient Shank Tapper Expl anation Advance Directive(s) 01/10/2021 8:39 AM Advance Directive(s) 12/28/2020 10:28 AM Advance Directive(s) 12/05/2019 6:41 AM Advance Directive Response Recorded Date/ Time Advance Directives No October 11:35am Living Will No March 03, 2022 1 2:49pm Power of [employer] No March 03, 2022 12:49pm Documents on File Type Date Recorded Patient Shank Tapper Expl anation Advance Directive(s) 01/10/2021 8:39 AM Advance Directive(s) 12/28/2020 10:28 AM Advance Directive(s) 12/05/2019 6:41 AM Advance Directive Response Recorded Date/ Time Advance Directives No October 10:35am Living Will No October 19 7:08pm Power of [employer] No October 19, 2022 7:08pm Latest Code [...] Will No November 01 11:45pm Power of [employer] No November 01, 2022 11:45pm Advance Directive Response Recorded Date/ Time Advance Directives No October 11:35am Living Will No June 02, 023 3:53pm Power of [employer] No June 02, 2023 3:53pm Advance Directive Response Recorded Date/ Time Advance Directives No October 11:35am Living Will No July 08 6:10pm Power of [employer] No July 08, 2023 6:10pm Advance Directive Response Recorded Date/ Time Advance Directives No October 11:35am Living Will No January 02, 2024 7:23pm Power of [employer] No January 01 7:23pm Advance Directive Response Recorded Date/ Time Advance Directives No October 11:35am Living Will No January 02, 2024 11:15pm Power of [employer] No January 01 11:15pm Advance Directive Response Recorded Date/ Time Advance Directives No October 11:35am Living Will No January 19, 2024 11:39pm Power of [employer] No January 18 11:39pm Advance Directive Response Recorded Date/ Time Living Will No December 04, 2024 4:02pm Power of [employer] No December 04 4:02pm Advance Directives No October 11:35am Advance Directive Response Recorded Date/ Time Living Will No December 04, 2024 8:21pm Power of [employer] No December 04 8:21pm Advance Directives No October 11:35am Advance Directive Response Recorded Date/ Time Living Will No December 04, 2024 8:21pm Do you have a Healthcare Power of [employer]? No December 04, 2024 8:21pm Living Will No December 24, 2024 8:13pm Do you have a Healthcare Power of [employer]? No December 24, 2024 8:13pm Advance Directives No October 11:35am Advance Directive Response Recorded Date/ Time Living Will No December 04, 2024 8:21pm Do you have a Healthcare Power of [employer]? No December 04, 2024 8:21pm Living Will No December 24, 2024 8:13pm Do you have a Healthcare Power of [employer]? No December 24, 2024 8:13pm Living Will No January 01, 2025 8:27pm Do you have a Healthcare Power of [employer]? No January 01, 2025 8:27pm Advance Directives No October 11:35am Advance Directive Response Recorded Date/ Time Living Will No January 19, 2024 11:39pm Do you have a Healthcare Power of [employer]? No January 19, 2024 11:39pm Living Will No December 04, 2024 8:21pm Do you have a Healthcare Power of [employer]? No December 04, 2024 8:21pm Living Will No December 24, 2024 8:13pm Do you have a Healthcare Power of [employer]? No December 24, 2024 8:13pm Living Will No January 01, 2025 8:27pm Do you have a Healthcare Power of [employer]? No January 01, 2025 8:27pm Do you have a Healthcare Power of [employer]? Yes January 27, 2025 10:20am Name of Medical Power of [employer] sister January 27, 2025 10:20am Advance Directives No October 11:35am Advance Directive Response Recorded Date/ Time Living Will No January 19, 2024 11:39pm Do you have a Healthcare Power of [employer]? No January 19, 2024 11:39pm Living Will No December 04, 2024 8:21pm Do you have a Healthcare Power of [employer]? No December 04, 2024 8:21pm Living Will No December 24, 2024 8:13pm Do you have a Healthcare Power of [employer]? No December 24, 2024 8:13pm Living Will No January 01, 2025 8:27pm Do you have a Healthcare Power of [employer]? No January 01, 2025 8:27pm Do you have a Healthcare Power of [employer]? Yes January 27, 2025 10:20am Name of Medical Power of [employer] sister January 27, 2025 10:20am Do you have a Healthcare Power of [employer]? No February 26, 2025 2:12pm Advance Directives No October 11:35am Advance Directive Response Recorded Date/ Time Living Will No January 19, 2024 11:39pm Do you have a Healthcare Power of [employer]? No January 19, 2024 11:39pm Living Will No December 04, 2024 8:21pm Do you have a Healthcare Power of [employer]? No December 04, 2024 8:21pm Living Will No December 24, 2024 8:13pm Do you have a Healthcare Power of [employer]? No December 24, 2024 8:13pm Living Will No January 01, 2025 8:27pm Do you have a Healthcare Power of [employer]? No January 01, 2025 8:27pm Do you have a Healthcare Power of [employer]? Yes January 27, 2025 10:20am Name of Medical Power of [employer] sister January 27, 2025 10:20am Do you have a Healthcare Power of [employer]? No March 13, 2025 12:02pm Do you have a Healthcare Power of [employer]? No February 26, 2025 2:12pm Advance Directives No October 11:35am Advance Directive Response Recorded Date/ Time Living Will No January 19, 2024 11:39pm Do you have a Healthcare Power of [employer]? No January 19, 2024 11:39pm Living Will No December 04, 2024 8:21pm Do you have a Healthcare Power of [employer]? No December 04, 2024 8:21pm Living Will No December 24, 2024 8:13pm Do you have a Healthcare Power of [employer]? No December 24, 2024 8:13pm Living Will No January 01, 2025 8:27pm Do you have a Healthcare Power of [employer]? No January 01, 2025 8:27pm Do you have a Healthcare Power of [employer] Superintendent? Yes January 27, 2025 10:20am Name of Medical Power of [employer] sister January 27, 2025 10:20am Do you have a Healthcare Power of [employer] Superintendent? No March 14, 2025 1:26am Do you have a Healthcare Power of [employer]? No February 26, 2025 2:12pm Advance Directives No October 11:35am Date Activated Date Inactivated Comments 03/15/2025 11:09 PM 03/23/2025 10:54 PM Documents on File Type Date Recorded Patient Shank Tapper Expl anation Advance Directive(s) 03/16/2025 3:08 PM Date Activated Date Inactivated Comments 03/15/2025 11:09 PM 03/23/2025 10:54 PM Question Answer Comments Full Code Order Discussed With: Discussion Not M edically Appropriate Advance Directive Response Recorded Date/ Time Living Will No January 19, 2024 11:39pm Do you have a Healthcare Power of [employer]? No January 19, 2024 11:39pm Living Will No December 24, 2024 8:13pm Do you have a Healthcare Power of [employer]? No December 24, 2024 8:13pm Living Will No January 01, 2025 8:27pm Do you have a Healthcare Power of [employer]? No January 01, 2025 8:27pm Do you have a Healthcare Power of [employer]? Yes January 27, 2025 10:20am Name of Medical Power of [employer] sister January 27, 2025 10:20am Do you have a Healthcare Power of [employer] Superintendent? No March 14, 2025 1:26am Do you have a Healthcare Power of [employer]? No April 15, 2025 10:57pm Do you have a Healthcare Power of [employer]? No February 26, 2025 2:12pm Advance Directives No October 11:35am Advance Directive Response Recorded Date/ Time Living Will No January 19, 2024 11:39pm Do you have a Healthcare Power of [employer]? No January 19, 2024 11:39pm Living Will No December 24, 2024 8:13pm Do you have a Healthcare Power of [employer]? No December 24, 2024 8:13pm Living Will No January 01, 2025 8:27pm Do you have a Healthcare Power of [employer]? No January 01, 2025 8:27pm Do you have a Healthcare Power of [employer]? Yes January 27, 2025 10:20am Name of Medical Power of [employer] sister January 27, 2025 10:20am Do you have a Healthcare Power of [employer] Superintendent? No March 14, 2025 1:26am Do you have a Healthcare Power of [employer]? Yes April 16, 2025 2:36am Do you have a Healthcare Power of [employer]? No February 26, 2025 2:12pm Advance Directives No October 11:35am Advance Directive Response Recorded Date/ Time Living Will No January 19, 2024 11:39pm Do you have a Healthcare Power of [employer]? No January 19, 2024 11:39pm Living Will No January 01, 2025 8:27pm Do you have a Healthcare Power of [employer]? No January 01, 2025 8:27pm Do you have a Healthcare Power of [employer] Superintendent? Yes January 27, 2025 10:20am Name of Medical Power of [employer] sister January 27, 2025 10:20am Do you have a Healthcare Power of [employer] Superintendent? No March 14, 2025 1:26am Do you have a Healthcare Power of [employer]? Yes April 16, 2025 2:36am Do you have a Healthcare Power of [employer]? No February 26, 2025 2:12pm Advance Directives No October 11:35am Advance Directive Response Recorded Date/ Time Living Will No January 19, 2024 11:39pm Do you have a Healthcare Power of [employer]? No January 19, 2024 11:39pm Do you have a Healthcare Power of [employer] Superintendent? Yes January 27, 2025 10:20am Name of Medical Power of [employer] Superintendent sister January 27, 2025 10:20am Do you have a Healthcare Power of [employer] Superintendent? No March 14, 2025 1:26am Do you have a Healthcare Power of [employer]? Yes April 16, 2025 2:36am Do you have a Healthcare Power of [employer]? No February 26, 2025 2:12pm Advance Directives [...] RESP FAILURE; SECONDA TO C OPD EXACER March 12th, 2025 9:59am ACUTE HYPOXIC RESP FAILURE; SECONDA TO [...] 11:2 0pm PANCREATITIS, COMPLICATION WITH STENT Ju id 2024 11:28pm PANCREATITIS, COMPLICATION WITH STENT Ju id 2024 10:25am PANCREATITIS, COMPLICATION WITH STENT Ju id 2024 8:20am PANCREATITIS, COMPLICATION WITH STENT Ju id 2024 7:08pm Reason for Visit Admit Date [...] PANCREATITIS, COMPLICATION WITH STENT Ju 2024 11:28pm PANCREATITIS, COMPLICATION WITH STENT Ju ne 2024 10:25am PANCREATITIS, COMPLICATION WITH STENT Ju ne 2024 8:20am PANCREATITIS, COMPLICATION WITH STENT Ju ne 2024 7:08pm PANCREATITIS, COMPLICATION WITH STENT Ju ne 2024 7:31am follow up April 10, 2025 9:57 am Chief Complaint Admit Date Follow up December 23, 2024 9:5 9am ABDOMINAL PAIN AND RIGHT FOOT PAIN December 24, 2024 7:38pm ABD PAIN January 01, 2025 8:27 pm sob January 27, 2025 10:13a m 9 M FU February 08, 2025 1:07p m ABDOMINAL PAIN February 26, 2025 1:57p m sob March 13, 2025 11:2 0pm PANCREATITIS, COMPLICATION WITH STENT Ju 2024 11:28pm PANCREATITIS, COMPLICATION WITH STENT Ju ne 2024 10:25am PANCREATITIS, COMPLICATION WITH STENT Ju ne 2024 8:20am PANCREATITIS, COMPLICATION WITH STENT Ju ne 2024 7:08pm PANCREATITIS, COMPLICATION WITH STENT Ju ne 2024 7:31am follow up April 10, 2025 9:57 am ACUTE ON CHRONIC PANCREATITIS WITH LEUKO CYTOSIS April 16, 2025 1:14am Reason for Visit Admit Date Acute cholecystitis December 23, 2024 9:5 9am [...] 30 pack years March 13, 2025 11:28pm Acute cholecystitis April 10, 2025 9:57 am Alcoholic hepatitis April 10, 2025 9:57 am Anxiety and depression April 10, 2025 9 :57am Asthma April 10, 2025 9:57 am Chronic respiratory failure with hypoxia April 10, 2025 9:57am COPD (chronic obstructive pulmonary dise ase) April 10, 2025 9:57am Smoking greater than 30 pack years April 10, 2025 9:57am History of alcohol abuse April 16, 2025 1:14am History of tobacco abuse April 16, 2025 1:14am Hypertensive urgency April 16, 2025 1:1 4am Leukocytosis April 16, 2025 1:14 am Presence of pancreatic duct stent March [id number] 1:14am Acute on chronic pancreatitis April 16, 2025 1:14am COPD (chronic obstructive pulmonary dise ase) April 16, 2025 1:14am Chief Complaint Admit Date Follow up December 23, 2024 9:5 9am ABDOMINAL PAIN AND RIGHT FOOT PAIN December 24, 2024 7:38pm ABD PAIN January 01, 2025 8:27 pm sob January 27, 2025 10:13a m 9 M FU February 08, 2025 1:07p m ABDOMINAL PAIN February 26, 2025 1:57p m sob March 13, 2025 11:2 0pm PANCREATITIS, COMPLICATION WITH STENT Ju 2024 11:28pm PANCREATITIS, COMPLICATION WITH STENT Ju ne 2024 10:25am PANCREATITIS, COMPLICATION WITH STENT Ju ne 2024 8:20am PANCREATITIS, COMPLICATION WITH STENT Ju 2024 7:08pm PANCREATITIS, COMPLICATION WITH STENT Ju ne 2024 7:31am follow up April 10, 2025 9:57 am ACUTE ON CHRONIC PANCREATITIS WITH LEUKO CYTOSIS April 16, 2025 1:14am ACUTE ON CHRONIC PANCREATITIS WITH LEUKO CYTOSIS April 17, 2025 4:40pm ACUTE ON CHRONIC PANCREATITIS WITH LEUKO CYTOSIS April 18, 2025 5:44pm Chief Complaint Admit Date ABD PAIN January 01, 2025 8:27 pm sob January 27, 2025 10:13a m 9 M FU February 08, 2025 1:07p m ABDOMINAL PAIN February 26, 2025 1:57p m sob March 13, 2025 11:2 0pm PANCREATITIS, COMPLICATION WITH STENT Ju 2024 11:28pm PANCREATITIS, COMPLICATION WITH STENT Ju ne 2024 10:25am PANCREATITIS, COMPLICATION WITH STENT Ju ne 2024 8:20am PANCREATITIS, COMPLICATION WITH STENT Ju ne 2024 7:08pm PANCREATITIS, COMPLICATION WITH STENT Ju ne 2024 7:31am follow up April 10, 2025 9:57 am ACUTE ON CHRONIC PANCREATITIS WITH LEUKO CYTOSIS April 16, 2025 1:14am ACUTE ON CHRONIC PANCREATITIS WITH LEUKO CYTOSIS April 17, 2025 4:40pm ACUTE ON CHRONIC PANCREATITIS WITH LEUKO CYTOSIS April 18, 2025 5:44pm ACUTE ON CHRONIC PANCREATITIS WITH LEUKO CYTOSIS April 19, 2025 2:13pm Pancreatitis April 26, 2025 1:34 pm Reason for Visit Admit Date Acute cholecystitis February 08, 2025 1:07p m [...] 30 pack years March 13, 2025 11:28pm Acute cholecystitis April 10, 2025 9:57 am Alcoholic hepatitis April 10, 2025 9:57 am Anxiety and depression April 10, 2025 9 :57am Asthma April 10, 2025 9:57 am Chronic respiratory failure with hypoxia April 10, 2025 9:57am COPD (chronic obstructive pulmonary dise ase) April 10, 2025 9:57am Smoking greater than 30 pack years April 10, 2025 9:57am History of alcohol abuse April 16, 2025 1:14am History of tobacco abuse April 16, 2025 1:14am Hypertensive urgency April 16, 2025 1:1 4am Leukocytosis April 16, 2025 1:14 am Presence of pancreatic duct stent March [id number] 1:14am Acute on chronic pancreatitis April 16, 2025 1:14am COPD (chronic obstructive pulmonary dise ase) April 16, 2025 1:14am History of insertion of pancreatic stent April 26, 2025 1:34pm Loose stools April 26, 2025 1:34 pm Chronic pancreatitis April 26, 2025 1:3 4pm Chief Complaint Admit Date sob January 27, 2025 10:13a m 9 M FU February 08, 2025 1:07p m ABDOMINAL PAIN February 26, 2025 1:57p m sob March 13, 2025 11:2 0pm PANCREATITIS, COMPLICATION WITH STENT Ju ne 2024 11:28pm PANCREATITIS, COMPLICATION WITH STENT Ju ne 2024 10:25am PANCREATITIS, COMPLICATION WITH STENT Ju ne 2024 8:20am PANCREATITIS, COMPLICATION WITH STENT Ju ne 2024 7:08pm PANCREATITIS, COMPLICATION WITH STENT Ju ne 2024 7:31am follow up April 10, 2025 9:57 am ACUTE ON CHRONIC PANCREATITIS WITH LEUKO CYTOSIS April 16, 2025 1:14am ACUTE ON CHRONIC PANCREATITIS WITH LEUKO CYTOSIS April 17, 2025 4:40pm ACUTE ON CHRONIC PANCREATITIS WITH LEUKO CYTOSIS April 18, 2025 5:44pm ACUTE ON CHRONIC PANCREATITIS WITH LEUKO CYTOSIS April 19, 2025 2:13pm Pancreatitis April 26, 2025 1:34 pm INT LAB AND XRAY ORDERS April 26, 2025 2:24pm E-ORDER April 27, 2025 10:2 3am Reason for Visit Admit Date Acute cholecystitis February 08, 2025 1:07p m [...] 30 pack years March 13, 2025 11:28pm Acute cholecystitis April 10, 2025 9:57 am Alcoholic hepatitis April 10, 2025 9:57 am Anxiety and depression April 10, 2025 9 :57am Asthma April 10, 2025 9:57 am Chronic respiratory failure with hypoxia April 10, 2025 9:57am COPD (chronic obstructive pulmonary dise ase) April 10, 2025 9:57am Smoking greater than 30 pack years April 10, 2025 9:57am History of alcohol abuse April 16, 2025 1:14am History of tobacco abuse April 16, 2025 1:14am Hypertensive urgency April 16, 2025 1:1 4am Leukocytosis April 16, 2025 1:14 am Presence of pancreatic duct stent March [id number] 1:14am COPD (chronic obstructive pulmonary dise ase) April 16, 2025 1:14am Acute on chronic pancreatitis April 16, 2025 1:14am History of insertion of pancreatic stent April 26, 2025 1:34pm Loose stools April 26, 2025 1:34 pm Chronic pancreatitis April 26, 2025 1:3 4pm Reason for Referral Specialty Diagnoses / Procedures Referred By Travis melendez Referred To Contact Neurology Diagnoses Numbness and tingling of both lower extremities Procedures CONSULT TO NEUROLOGY OFFICE/OUTPATIENT [facility] 60-[place] [address] [place] [id number] Referral ID Status Reason Start Date Expiration Date Visits Requested Visits Authorized [id number] Authorized PCP Requested Referral 11/25/2022 11/25/2023 1 1 Specialty Diagnoses / Procedures Referred By Contac t Referred To Contact XR IMAGING Diagnoses Numbness and tingling of both lower extremities Procedures XR LUMBAR GENERAL 3V AP/LAT/L5-S1 RADEX SPINE LUMBOSACRAL 2/3 VIEWS Misbah Elkins MD [address] [place] [address] Xr Imaging Referral ID Status Reason Start Date Expiration Date V isits Requested Visits Authorized [id number] Closed Auto-Generate d Referral 11/25/2022 12/25/2023 1 1 Specialty Diagnoses / Procedures Referred By Contac t Referred To Contact CT IMAGING Diagnoses Alcoholic hepatitis without ascites Acute pancreatitis, unspecified complication status, unspecified pancreatitis type Upper abdominal pain Nausea Elevated lipase Generalized abdominal tenderness without rebound tenderness Procedures CT ABD/PEL W IVCON CT ABD & PELVIS W/CONTRAST Soila Easton APRN.CNP [id number] [place] [address] Referral ID Status Reason Start Date Expiration Date Visits Requested Visits Authorized [id number] Pending Review Auto-Generat ed Referral 09/14/2025 1 1 Additional Source Comments INFORMATION SOURCE (unrecogn ized section and content) DATE CREATED AUTHOR 03/24/2018 [facility] ([place]) DATE CREATED AUTHOR AUTHOR'S ORGANIZ ATION 12/05/2019 [facility] DATE CREATED AUTHOR AUTHOR'S ORGANIZ ATION 12/07/2019 [facility] DATE CREATED AUTHOR AUTHOR'S ORGANIZ ATION 11/07/2022 [facility] DATE CREATED AUTHOR AUTHOR'S ORGANIZ ATION 12/27/2022 [employer] DATE CREATED AUTHOR AUTHOR'S ORGANIZ ATION 06/12/2023 [facility] DATE CREATED AUTHOR AUTHOR'S ORGANIZ ATION 04/21/2025 [facility] DATE CREATED AUTHOR AUTHOR'S ORGANIZ ATION 04/27/2025 [facility] DATE CREATED AUTHOR AUTHOR'S ORGANIZ ATION 05/06/2025 [facility] Source Comments (unrecognize d section and content) In the event this informatio n is protected by the Federal Confidentiality of Alcohol and Drug Abuse Patient Records regulations: The Federal rules restrict any use of the information to criminally investigate or prosecute any alcohol or drug abuse patient.[facility] the event this information is protected by the Federal Confidentiality of Alcohol and Drug Abuse Patient Records regulations: The Federal rules restrict any use of the information to criminally investigate or prosecute any alcohol or drug abuse patient.[facility] General[facility] the event this information is protected by the Federal Confidentiality of Alcohol and Drug Abuse Patient Records regulations: The Federal rules restrict any use of the information to criminally investigate or prosecute any alcohol or drug abuse patient.[facility] General[facility] the event this information is protected by the Federal Confidentiality of Alcohol and Drug Abuse Patient Records regulations: The Federal rules restrict any use of the information to criminally investigate or prosecute any alcohol or drug abuse patient.[facility] General[facility] the event this information is protected by the Federal Confidentiality of Alcohol and Drug Abuse Patient Records regulations: The Federal rules restrict any use of the information to criminally investigate or prosecute any alcohol or drug abuse patient.[facility] the event this information is protected by the Federal Confidentiality of Alcohol and Drug Abuse Patient Records regulations: The Federal rules restrict any use of the information to criminally investigate or prosecute any alcohol or drug abuse patient.[facility] General[facility] the event this information is protected by the Federal Confidentiality of Alcohol and Drug Abuse Patient Records regulations: The Federal rules restrict any use of the information to criminally investigate or prosecute any alcohol or drug abuse patient.[facility] General[facility] the event this information is protected by the Federal Confidentiality of Alcohol and Drug Abuse Patient Records regulations: The Federal rules restrict any use of the information to criminally investigate or prosecute any alcohol or drug abuse patient.[facility] General[facility] the event this information is protected by the Federal Confidentiality of Alcohol and Drug Abuse Patient Records regulations: The Federal rules restrict any use of the information to criminally investigate or prosecute any alcohol or drug abuse patient.[facility] General[facility] the event this information is protected by the Federal Confidentiality of Alcohol and Drug Abuse Patient Records regulations: The Federal rules restrict any use of the information to criminally investigate or prosecute any alcohol or drug abuse patient.[facility] General[facility] the event this information is protected by the Federal Confidentiality of Alcohol and Drug Abuse Patient Records regulations: The Federal rules restrict any use of the information to criminally investigate or prosecute any alcohol or drug abuse patient.[facility] General[facility] the event this information is protected by the Federal Confidentiality of Alcohol and Drug Abuse Patient Records regulations: The Federal rules restrict any use of the information to criminally investigate or prosecute any alcohol or drug abuse patient.[facility] General[facility] the event this information is protected by the Federal Confidentiality of Alcohol and Drug Abuse Patient Records regulations: The Federal rules restrict any use of the information to criminally investigate or prosecute any alcohol or drug abuse patient.[facility] GeneralIn the event this information is protected by the Federal Confidentiality of Alcohol and Drug Abuse Patient Records regulations: The Federal rules restrict any use of the information to criminally investigate or prosecute any alcohol or drug abuse patient.[facility] GeneralIn the event this information is protected by the Federal Confidentiality of Alcohol and Drug Abuse Patient Records regulations: The Federal rules restrict any use of the information to criminally investigate or prosecute any alcohol or drug abuse patient.[facility] GeneralIn the event this information is protected by the Federal Confidentiality of Alcohol and Drug Abuse Patient Records regulations: The Federal rules restrict any use of the information to criminally investigate or prosecute any alcohol or drug abuse patient.[facility] GeneralIn the event this information is protected by the Federal Confidentiality of Alcohol and Drug Abuse Patient Records regulations: The Federal rules restrict any use of the information to criminally investigate or prosecute any alcohol or drug abuse patient.[facility] GeneralIn the event this information is protected by the Federal Confidentiality of Alcohol and Drug Abuse Patient Records regulations: The Federal rules restrict any use of the information to criminally investigate or prosecute any alcohol or drug abuse patient.[facility] GeneralIn the event this information is protected by the Federal Confidentiality of Alcohol and Drug Abuse Patient Records regulations: The Federal rules restrict any use of the information to criminally investigate or prosecute any alcohol or drug abuse patient.[facility] GeneralIn the event this information is protected by the Federal Confidentiality of Alcohol and Drug Abuse Patient Records regulations: The Federal rules restrict any use of the information to criminally investigate or prosecute any alcohol or drug abuse patient.[facility] GeneralIn the event this information is protected by the Federal Confidentiality of Alcohol and Drug Abuse Patient Records regulations: The Federal rules restrict any use of the information to criminally investigate or prosecute any alcohol or drug abuse patient.[facility] GeneralIn the event this information is protected by the Federal Confidentiality of Alcohol and Drug Abuse Patient Records regulations: The Federal rules restrict any use of the information to criminally investigate or prosecute any alcohol or drug abuse patient.[facility] GeneralIn the event this information is protected by the Federal Confidentiality of Alcohol and Drug Abuse Patient Records regulations: The Federal rules restrict any use of the information to criminally investigate or prosecute any alcohol or drug abuse patient.[facility] GeneralIn the event this information is protected by the Federal Confidentiality of Alcohol and Drug Abuse Patient Records regulations: The Federal rules restrict any use of the information to criminally investigate or prosecute any alcohol or drug abuse patient.[facility] GeneralIn the event this information is protected by the Federal Confidentiality of Alcohol and Drug Abuse Patient Records regulations: The Federal rules restrict any use of the information to criminally investigate or prosecute any alcohol or drug abuse patient.[facility] GeneralIn the event this information is protected by the Federal Confidentiality of Alcohol and Drug Abuse Patient Records regulations: The Federal rules restrict any use of the information to criminally investigate or prosecute any alcohol or drug abuse patient.[facility] GeneralIn the event this information is protected by the Federal Confidentiality of Alcohol and Drug Abuse Patient Records regulations: The Federal rules restrict any use of the information to criminally investigate or prosecute any alcohol or drug abuse patient.[facility] GeneralIn the event this information is protected by the Federal Confidentiality of Alcohol and Drug Abuse Patient Records regulations: The Federal rules restrict any use of the information to criminally investigate or prosecute any alcohol or drug abuse patient.[facility] GeneralIn the event this information is protected by the Federal Confidentiality of Alcohol and Drug Abuse Patient Records regulations: The Federal rules restrict any use of the information to criminally investigate or prosecute any alcohol or drug abuse patient.[facility] GeneralIn the event this information is protected by the Federal Confidentiality of Alcohol and Drug Abuse Patient Records regulations: The Federal rules restrict any use of the information to criminally investigate or prosecute any alcohol or drug abuse patient.[facility] GeneralIn the event this information is protected by the Federal Confidentiality of Alcohol and Drug Abuse Patient Records regulations: The Federal rules restrict any use of the information to criminally investigate or prosecute any alcohol or drug abuse patient.[facility] GeneralIn the event this information is protected by the Federal Confidentiality of Alcohol and Drug Abuse Patient Records regulations: The Federal rules restrict any use of the information to criminally investigate or prosecute any alcohol or drug abuse patient.[facility] GeneralIn the event this information is protected by the Federal Confidentiality of Alcohol and Drug Abuse Patient Records regulations: The Federal rules restrict any use of the information to criminally investigate or prosecute any alcohol or drug abuse patient.[facility] GeneralIn the event this information is protected by the Federal Confidentiality of Alcohol and Drug Abuse Patient Records regulations: The Federal rules restrict any use of the information to criminally investigate or prosecute any alcohol or drug abuse patient.[facility] GeneralIn the event this information is protected by the Federal Confidentiality of Alcohol and Drug Abuse Patient Records regulations: The Federal rules restrict any use of the information to criminally investigate or prosecute any alcohol or drug abuse patient.[facility] GeneralIn the event this information is protected by the Federal Confidentiality of Alcohol and Drug Abuse Patient Records regulations: The Federal rules restrict any use of the information to criminally investigate or prosecute any alcohol or drug abuse patient.[facility] GeneralIn the event this information is protected by the Federal Confidentiality of Alcohol and Drug Abuse Patient Records regulations: The Federal rules restrict any use of the information to criminally investigate or prosecute any alcohol or drug abuse patient.[facility] GeneralIn the event this information is protected by the Federal Confidentiality of Alcohol and Drug Abuse Patient Records regulations: The Federal rules restrict any use of the information to criminally investigate or prosecute any alcohol or drug abuse patient.[facility] GeneralIn the event this information is protected by the Federal Confidentiality of Alcohol and Drug Abuse Patient Records regulations: The Federal rules restrict any use of the information to criminally investigate or prosecute any alcohol or drug abuse patient.[facility] GeneralIn the event this information is protected by the Federal Confidentiality of Alcohol and Drug Abuse Patient Records regulations: The Federal rules restrict any use of the information to criminally investigate or prosecute any alcohol or drug abuse patient.[facility] GeneralIn the event this information is protected by the Federal Confidentiality of Alcohol and Drug Abuse Patient Records regulations: The Federal rules restrict any use of the information to criminally investigate or prosecute any alcohol or drug abuse patient.[facility] GeneralIn the event this information is protected by the Federal Confidentiality of Alcohol and Drug Abuse Patient Records regulations: The Federal rules restrict any use of the information to criminally investigate or prosecute any alcohol or drug abuse patient.[facility] GeneralIn the event this information is protected by the Federal Confidentiality of Alcohol and Drug Abuse Patient Records regulations: The Federal rules restrict any use of the information to criminally investigate or prosecute any alcohol or drug abuse patient.[facility] GeneralIn the event this information is protected by the Federal Confidentiality of Alcohol and Drug Abuse Patient Records regulations: The Federal rules restrict any use of the information to criminally investigate or prosecute any alcohol or drug abuse patient.[facility] GeneralIn the event this information is protected by the Federal Confidentiality of Alcohol and Drug Abuse Patient Records regulations: The Federal rules restrict any use of the information to criminally investigate or prosecute any alcohol or drug abuse patient.[facility] GeneralIn the event this information is protected by the Federal Confidentiality of Alcohol and Drug Abuse Patient Records regulations: The Federal rules restrict any use of the information to criminally investigate or prosecute any alcohol or drug abuse patient.[facility] GeneralIn the event this information is protected by the Federal Confidentiality of Alcohol and Drug Abuse Patient Records regulations: The Federal rules restrict any use of the information to criminally investigate or prosecute any alcohol or drug abuse patient.[facility] GeneralIn the event this information is protected by the Federal Confidentiality of Alcohol and Drug Abuse Patient Records regulations: The Federal rules restrict any use of the information to criminally investigate or prosecute any alcohol or drug abuse patient.[facility] GeneralIn the event this information is protected by the Federal Confidentiality of Alcohol and Drug Abuse Patient Records regulations: The Federal rules restrict any use of the information to criminally investigate or prosecute any alcohol or drug abuse patient.[facility] GeneralIn the event this information is protected by the Federal Confidentiality of Alcohol and Drug Abuse Patient Records regulations: The Federal rules restrict any use of the information to criminally investigate or prosecute any alcohol or drug abuse patient.[facility] GeneralIn the event this information is protected by the Federal Confidentiality of Alcohol and Drug Abuse Patient Records regulations: The Federal rules restrict any use of the information to criminally investigate or prosecute any alcohol or drug abuse patient.[facility] GeneralIn the event this information is protected by the Federal Confidentiality of Alcohol and Drug Abuse Patient Records regulations: The Federal rules restrict any use of the information to criminally investigate or prosecute any alcohol or drug abuse patient.[facility] GeneralIn the event this information is protected by the Federal Confidentiality of Alcohol and Drug Abuse Patient Records regulations: The Federal rules restrict any use of the information to criminally investigate or prosecute any alcohol or drug abuse patient.[facility] GeneralIn the event this information is protected by the Federal Confidentiality of Alcohol and Drug Abuse Patient Records regulations: The Federal rules restrict any use of the information to criminally investigate or prosecute any alcohol or drug abuse patient.[facility]In the event this information is protected by the Federal Confidentiality of Alcohol and Drug Abuse Patient Records regulations: The Federal rules restrict any use of the information to criminally investigate or prosecute any alcohol or drug abuse patient.[facility]In the event this information is protected by the Federal Confidentiality of Alcohol and Drug Abuse Patient Records regulations: The Federal rules restrict any use of the information to criminally investigate or prosecute any alcohol or drug abuse patient.[facility]In the event this information is protected by the Federal Confidentiality of Alcohol and Drug Abuse Patient Records regulations: The Federal rules restrict any use of the information to criminally investigate or prosecute any alcohol or drug abuse patient.[facility]In the event this information is protected by the Federal Confidentiality of Alcohol and Drug Abuse Patient Records regulations: The Federal rules restrict any use of the information to criminally investigate or prosecute any alcohol or drug abuse patient.[facility]In the event this information is protected by the Federal Confidentiality of Alcohol and Drug Abuse Patient Records regulations: The Federal rules restrict any use of the information to criminally investigate or prosecute any alcohol or drug abuse patient.[facility]In the event this information is protected by the Federal Confidentiality of Alcohol and Drug Abuse Patient Records regulations: The Federal rules restrict any use of the information to criminally investigate or prosecute any alcohol or drug abuse patient.[facility]In the event this information is protected by the Federal Confidentiality of Alcohol and Drug Abuse Patient Records regulations: The Federal rules restrict any use of the information to criminally investigate or prosecute any alcohol or drug abuse patient.[facility]In the event this information is protected by the Federal Confidentiality of Alcohol and Drug Abuse Patient Records regulations: The Federal rules restrict any use of the information to criminally investigate or prosecute any alcohol or drug abuse patient.[facility]In the event this information is protected by the Federal Confidentiality of Alcohol and Drug Abuse Patient Records regulations: The Federal rules restrict any use of the information to criminally investigate or prosecute any alcohol or drug abuse patient.[facility]In the event this information is protected by the Federal Confidentiality of Alcohol and Drug Abuse Patient Records regulations: The Federal rules restrict any use of the information to criminally investigate or prosecute any alcohol or drug abuse patient.[facility]In the event this information is protected by the Federal Confidentiality of Alcohol and Drug Abuse Patient Records regulations: The Federal rules restrict any use of the information to criminally investigate or prosecute any alcohol or drug abuse patient.[facility]In the event this information is protected by the Federal Confidentiality of Alcohol and Drug Abuse Patient Records regulations: The Federal rules restrict any use of the information to criminally investigate or prosecute any alcohol or drug abuse patient.[facility]In the event this information is protected by the Federal Confidentiality of Alcohol and Drug Abuse Patient Records regulations: The Federal rules restrict any use of the information to criminally investigate or prosecute any alcohol or drug abuse patient.[facility]In the event this information is protected by the Federal Confidentiality of Alcohol and Drug Abuse Patient Records regulations: The Federal rules restrict any use of the information to criminally investigate or prosecute any alcohol or drug abuse patient.[facility]In the event this information is protected by the Federal Confidentiality of Alcohol and Drug Abuse Patient Records regulations: The Federal rules restrict any use of the information to criminally investigate or prosecute any alcohol or drug abuse patient.[facility] GeneralIn the event this information is protected by the Federal Confidentiality of Alcohol and Drug Abuse Patient Records regulations: The Federal rules restrict any use of the information to criminally investigate or prosecute any alcohol or drug abuse patient.[facility]In the event this information is protected by the Federal Confidentiality of Alcohol and Drug Abuse Patient Records regulations: The Federal rules restrict any use of the information to criminally investigate or prosecute any alcohol or drug abuse patient.[facility]In the event this information is protected by the Federal Confidentiality of Alcohol and Drug Abuse Patient Records regulations: The Federal rules restrict any use of the information to criminally investigate or prosecute any alcohol or drug abuse patient.[facility]In the event this information is protected by the Federal Confidentiality of Alcohol and Drug Abuse Patient Records regulations: The Federal rules restrict any use of the information to criminally investigate or prosecute any alcohol or drug abuse patient.[facility] GeneralIn the event this information is protected by the Federal Confidentiality of Alcohol and Drug Abuse Patient Records regulations: The Federal rules restrict any use of the information to criminally investigate or prosecute any alcohol or drug abuse patient.[facility] GeneralIn the event this information is protected by the Federal Confidentiality of Alcohol and Drug Abuse Patient Records regulations: The Federal rules restrict any use of the information to criminally investigate or prosecute any alcohol or drug abuse patient.[facility]In the event this information is protected by the Federal Confidentiality of Alcohol and Drug Abuse Patient Records regulations: The Federal rules restrict any use of the information to criminally investigate or prosecute any alcohol or drug abuse patient.[facility] GeneralIn the event this information is protected by the Federal Confidentiality of Alcohol and Drug Abuse Patient Records regulations: The Federal rules restrict any use of the information to criminally investigate or prosecute any alcohol or drug abuse patient.[facility] GeneralIn the event this information is protected by the Federal Confidentiality of Alcohol and Drug Abuse Patient Records regulations: The Federal rules restrict any use of the information to criminally investigate or prosecute any alcohol or drug abuse patient.[facility] GeneralIn the event this information is protected by the Federal Confidentiality of Alcohol and Drug Abuse Patient Records regulations: The Federal rules restrict any use of the information to criminally investigate or prosecute any alcohol or drug abuse patient.[facility] GeneralIn the event this information is protected by the Federal Confidentiality of Alcohol and Drug Abuse Patient Records regulations: The Federal rules restrict any use of the information to criminally investigate or prosecute any alcohol or drug abuse patient.[facility]In the event this information is protected by the Federal Confidentiality of Alcohol and Drug Abuse Patient Records regulations: The Federal rules restrict any use of the information to criminally investigate or prosecute any alcohol or drug abuse patient.[facility] GeneralIn the event this information is protected by the Federal Confidentiality of Alcohol and Drug Abuse Patient Records regulations: The Federal rules restrict any use of the information to criminally investigate or prosecute any alcohol or drug abuse patient.[facility]In the event this information is protected by the Federal Confidentiality of Alcohol and Drug Abuse Patient Records regulations: The Federal rules restrict any use of the information to criminally investigate or prosecute any alcohol or drug abuse patient.[facility] GeneralIn the event this information is protected by the Federal Confidentiality of Alcohol and Drug Abuse Patient Records regulations: The Federal rules restrict any use of the information to criminally investigate or prosecute any alcohol or drug abuse patient.[facility]In the event this information is protected by the Federal Confidentiality of Alcohol and Drug Abuse Patient Records regulations: The Federal rules restrict any use of the information to criminally investigate or prosecute any alcohol or drug abuse patient.[facility]In the event this information is protected by the Federal Confidentiality of Alcohol and Drug Abuse Patient Records regulations: The Federal rules restrict any use of the information to criminally investigate or prosecute any alcohol or drug abuse patient.[facility]In the event this information is protected by the Federal Confidentiality of Alcohol and Drug Abuse Patient Records regulations: The Federal rules restrict any use of the information to criminally investigate or prosecute any alcohol or drug abuse patient.[facility] GeneralIn the event this information is protected by the Federal Confidentiality of Alcohol and Drug Abuse Patient Records regulations: The Federal rules restrict any use of the information to criminally investigate or prosecute any alcohol or drug abuse patient.[facility] GeneralIn the event this information is protected by the Federal Confidentiality of Alcohol and Drug Abuse Patient Records regulations: The Federal rules restrict any use of the information to criminally investigate or prosecute any alcohol or drug abuse patient.[facility] GeneralIn the event this information is protected by the Federal Confidentiality of Alcohol and Drug Abuse Patient Records regulations: The Federal rules restrict any use of the information to criminally investigate or prosecute any alcohol or drug abuse patient.[facility] GeneralIn the event this information is protected by the Federal Confidentiality of Alcohol and Drug Abuse Patient Records regulations: The Federal rules restrict any use of the information to criminally investigate or prosecute any alcohol or drug abuse patient.[facility] GeneralIn the event this information is protected by the Federal Confidentiality of Alcohol and Drug Abuse Patient Records regulations: The Federal rules restrict any use of the information to criminally investigate or prosecute any alcohol or drug abuse patient.[facility] GeneralIn the event this information is protected by the Federal Confidentiality of Alcohol and Drug Abuse Patient Records regulations: The Federal rules restrict any use of the information to criminally investigate or prosecute any alcohol or drug abuse patient.[facility] GeneralIn the event this information is protected by the Federal Confidentiality of Alcohol and Drug Abuse Patient Records regulations: The Federal rules restrict any use of the information to criminally investigate or prosecute any alcohol or drug abuse patient.[facility] GeneralIn the event this information is protected by the Federal Confidentiality of Alcohol and Drug Abuse Patient Records regulations: The Federal rules restrict any use of the information to criminally investigate or prosecute any alcohol or drug abuse patient.[facility] GeneralIn the event this information is protected by the Federal Confidentiality of Alcohol and Drug Abuse Patient Records regulations: The Federal rules restrict any use of the information to criminally investigate or prosecute any alcohol or drug abuse patient.[facility] GeneralIn the event this information is protected by the Federal Confidentiality of Alcohol and Drug Abuse Patient Records regulations: The Federal rules restrict any use of the information to criminally investigate or prosecute any alcohol or drug abuse patient.[facility] GeneralIn the event this information is protected by the Federal Confidentiality of Alcohol and Drug Abuse Patient Records regulations: The Federal rules restrict any use of the information to criminally investigate or prosecute any alcohol or drug abuse patient.[facility] GeneralIn the event this information is protected by the Federal Confidentiality of Alcohol and Drug Abuse Patient Records regulations: The Federal rules restrict any use of the information to criminally investigate or prosecute any alcohol or drug abuse patient.[facility] GeneralIn the event this information is protected by the Federal Confidentiality of Alcohol and Drug Abuse Patient Records regulations: The Federal rules restrict any use of the information to criminally investigate or prosecute any alcohol or drug abuse patient.[facility] GeneralIn the event this information is protected by the Federal Confidentiality of Alcohol and Drug Abuse Patient Records regulations: The Federal rules restrict any use of the information to criminally investigate or prosecute any alcohol or drug abuse patient.[facility] GeneralIn the event this information is protected by the Federal Confidentiality of Alcohol and Drug Abuse Patient Records regulations: The Federal rules restrict any use of the information to criminally investigate or prosecute any alcohol or drug abuse patient.[facility] GeneralIn the event this information is protected by the Federal Confidentiality of Alcohol and Drug Abuse Patient Records regulations: The Federal rules restrict any use of the information to criminally investigate or prosecute any alcohol or drug abuse patient.[facility] GeneralIn the event this information is protected by the Federal Confidentiality of Alcohol and Drug Abuse Patient Records regulations: The Federal rules restrict any use of the information to criminally investigate or prosecute any alcohol or drug abuse patient.[facility] GeneralIn the event this information is protected by the Federal Confidentiality of Alcohol and Drug Abuse Patient Records regulations: The Federal rules restrict any use of the information to criminally investigate or prosecute any alcohol or drug abuse patient.[facility] GeneralIn the event this information is protected by the Federal Confidentiality of Alcohol and Drug Abuse Patient Records regulations: The Federal rules restrict any use of the information to criminally investigate or prosecute any alcohol or drug abuse patient.[facility] GeneralIn the event this information is protected by the Federal Confidentiality of Alcohol and Drug Abuse Patient Records regulations: The Federal rules restrict any use of the information to criminally investigate or prosecute any alcohol or drug abuse patient.[facility] GeneralIn the event this information is protected by the Federal Confidentiality of Alcohol and Drug Abuse Patient Records regulations: The Federal rules restrict any use of the information to criminally investigate or prosecute any alcohol or drug abuse patient.[facility] GeneralIn the event this information is protected by the Federal Confidentiality of Alcohol and Drug Abuse Patient Records regulations: The Federal rules restrict any use of the information to criminally investigate or prosecute any alcohol or drug abuse patient.[facility] GeneralIn the event this information is protected by the Federal Confidentiality of Alcohol and Drug Abuse Patient Records regulations: The Federal rules restrict any use of the information to criminally investigate or prosecute any alcohol or drug abuse patient.[facility] GeneralIn the event this information is protected by the Federal Confidentiality of Alcohol and Drug Abuse Patient Records regulations: The Federal rules restrict any use of the information to criminally investigate or prosecute any alcohol or drug abuse patient.[facility] GeneralIn the event this information is protected by the Federal Confidentiality of Alcohol and Drug Abuse Patient Records regulations: The Federal rules restrict any use of the information to criminally investigate or prosecute any alcohol or drug abuse patient.[facility] GeneralIn the event this information is protected by the Federal Confidentiality of Alcohol and Drug Abuse Patient Records regulations: The Federal rules restrict any use of the information to criminally investigate or prosecute any alcohol or drug abuse patient.[facility] GeneralIn the event this information is protected by the Federal Confidentiality of Alcohol and Drug Abuse Patient Records regulations: The Federal rules restrict any use of the information to criminally investigate or prosecute any alcohol or drug abuse patient.[facility] GeneralIn the event this information is protected by the Federal Confidentiality of Alcohol and Drug Abuse Patient Records regulations: The Federal rules restrict any use of the information to criminally investigate or prosecute any alcohol or drug abuse patient.[facility] GeneralIn the event this information is protected by the Federal Confidentiality of Alcohol and Drug Abuse Patient Records regulations: The Federal rules restrict any use of the information to criminally investigate or prosecute any alcohol or drug abuse patient.[facility] GeneralIn the event this information is protected by the Federal Confidentiality of Alcohol and Drug Abuse Patient Records regulations: The Federal rules restrict any use of the information to criminally investigate or prosecute any alcohol or drug abuse patient.[facility] GeneralIn the event this information is protected by the Federal Confidentiality of Alcohol and Drug Abuse Patient Records regulations: The Federal rules restrict any use of the information to criminally investigate or prosecute any alcohol or drug abuse patient.[facility] GeneralIn the event this information is protected by the Federal Confidentiality of Alcohol and Drug Abuse Patient Records regulations: The Federal rules restrict any use of the information to criminally investigate or prosecute any alcohol or drug abuse patient.[facility] GeneralIn the event this information is protected by the Federal Confidentiality of Alcohol and Drug Abuse Patient Records regulations: The Federal rules restrict any use of the information to criminally investigate or prosecute any alcohol or drug abuse patient.[facility] GeneralIn the event this information is protected by the Federal Confidentiality of Alcohol and Drug Abuse Patient Records regulations: The Federal rules restrict any use of the information to criminally investigate or prosecute any alcohol or drug abuse patient.[facility] GeneralIn the event this information is protected by the Federal Confidentiality of Alcohol and Drug Abuse Patient Records regulations: The Federal rules restrict any use of the information to criminally investigate or prosecute any alcohol or drug abuse patient.[facility] GeneralIn the event this information is protected by the Federal Confidentiality of Alcohol and Drug Abuse Patient Records regulations: The Federal rules restrict any use of the information to criminally investigate or prosecute any alcohol or drug abuse patient.[facility] GeneralIn the event this information is protected by the Federal Confidentiality of Alcohol and Drug Abuse Patient Records regulations: The Federal rules restrict any use of the information to criminally investigate or prosecute any alcohol or drug abuse patient.[facility] GeneralIn the event this information is protected by the Federal Confidentiality of Alcohol and Drug Abuse Patient Records regulations: The Federal rules restrict any use of the information to criminally investigate or prosecute any alcohol or drug abuse patient.[facility] GeneralIn the event this information is protected by the Federal Confidentiality of Alcohol and Drug Abuse Patient Records regulations: The Federal rules restrict any use of the information to criminally investigate or prosecute any alcohol or drug abuse patient.[facility] GeneralIn the event this information is protected by the Federal Confidentiality of Alcohol and Drug Abuse Patient Records regulations: The Federal rules restrict any use of the information to criminally investigate or prosecute any alcohol or drug abuse patient.[facility] GeneralIn the event this information is protected by the Federal Confidentiality of Alcohol and Drug Abuse Patient Records regulations: The Federal rules restrict any use of the information to criminally investigate or prosecute any alcohol or drug abuse patient.[facility] GeneralIn the event this information is protected by the Federal Confidentiality of Alcohol and Drug Abuse Patient Records regulations: The Federal rules restrict any use of the information to criminally investigate or prosecute any alcohol or drug abuse patient.[facility] GeneralIn the event this information is protected by the Federal Confidentiality of Alcohol and Drug Abuse Patient Records regulations: The Federal rules restrict any use of the information to criminally investigate or prosecute any alcohol or drug abuse patient.[facility] GeneralIn the event this information is protected by the Federal Confidentiality of Alcohol and Drug Abuse Patient Records regulations: The Federal rules restrict any use of the information to criminally investigate or prosecute any alcohol or drug abuse patient.[facility] GeneralIn the event this information is protected by the Federal Confidentiality of Alcohol and Drug Abuse Patient Records regulations: The Federal rules restrict any use of the information to criminally investigate or prosecute any alcohol or drug abuse patient.[facility] GeneralIn the event this information is protected by the Federal Confidentiality of Alcohol and Drug Abuse Patient Records regulations: The Federal rules restrict any use of the information to criminally investigate or prosecute any alcohol or drug abuse patient.[facility] GeneralIn the event this information is protected by the Federal Confidentiality of Alcohol and Drug Abuse Patient Records regulations: The Federal rules restrict any use of the information to criminally investigate or prosecute any alcohol or drug abuse patient.[facility] Reason for Visit (unrecogniz ed section and content) Reason Comments cellulitis OD Specialty Diagnoses / Procedures Referred By Contac t Referred To Contact Emergency Medicine Diagnoses Orbital cellulitis on right [facility] [address] Phone: [phone] [facility] [place] [address] Phone: [phone] Referral ID Status Reason Start Date Expiration Date Visits Re quested Visits Authorized [id number] 3 Reason Comments Refill Request Reason [...] ABDOMINAL REAL TIME W/IMAGE LIMITED Soila Easton APRN.BOX TOE MAKER [address] [place] [address] [facility] Referral ID Status Reason Start Date Expiration Date V isits Requested Visits Authorized [id number] Closed Auto-Generate d Referral 04/17/2022 05/17/2023 1 1 Reason Onset Date Comments Refill Request 05/22/2022 Reason Comments Alcohol induced chronic pancreatitis Alc oholic hepatitis w/o ascites Specialty Diagnoses / Procedures Referred By Contac t Referred To Contact Gastroenterology Diagnoses Alcohol-induced chronic pancreatitis (HCC) Alcoholic hepatitis without ascites Procedures CONSULT TO GASTROENTEROLOGY OFFICE/OUTPATIENT NEW HIGH MDM 60-74 MINUTES Soila Easton APRN.BOX TOE MAKER [address] [place] [address] Referral ID Status Reason Start Date Expiration Date V isits Requested Visits Authorized [id number] Closed PCP Requested Referral 04/17/2022 04/17/2023 1 1 Reason Onset Date Comments Refill Request 06/13/2022 Reason Onset Date Comments Recheck 3 month follow u p Immunizations 07/18/2022 Flu vaccination Reason Comments Recheck [facility] ER follow up, SO B, fevers in [...] NEUROLOGY OFFICE/OUTPATIENT NEW HIGH MDM 60-74 MINUTES Ganta, Msibah, MD [address] [place] [address] Referral ID Status Reason Start Date Expiration Date V isits Requested Visits Authorized [id number] Closed PCP Requested Referral 11/25/2022 11/25/2023 1 1 Reason Comments Patient Update Reason Comments Erroneous encounter-disregard Reason Comments Hospital F/U follow up from [facility] and , right eye cellulitis mass behind [...] CT ABD & PELVIS W/CONTRAST Soila Easton APRN.BOX TOE MAKER [address] [place] [address] [place] [address] Referral ID Status Reason Start Date Expiration Date V isits Requested Visits Authorized [id number] Closed Auto-Generate d Referral 08/15/2024 10/14/2024 1 1 Specialty Diagnoses / Procedures Referred By Contac t Referred To Contact CT IMAGING Diagnoses Alcoholic hepatitis without ascites Acute pancreatitis, unspecified complication status, unspecified pancreatitis type Upper abdominal pain Nausea Elevated lipase Generalized abdominal tenderness without rebound tenderness Procedures CT ABD/PEL W IVCON CT ABD & PELVIS W/CONTRAST Soila Easton, LEI MAKER.BOX TOE MAKER [address] [place] [address] [place] [address] Reason Onset Date Comments Refill Request 10/28/2024 Reason Comments New Patient Chronic recurrent pa ncreatitis (HCC) [K86.1]; 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] Specialty Diagnoses / Procedures Referred By Contkar t Referred To Contact Gastroenterology Diagnoses Chronic recurrent pancreatitis (HCC) Alcohol-induced chronic pancreatitis (HCC) Procedures CONSULT TO GASTROENTEROLOGY OFFICE/OUTPATIENT NEW HIGH MDM 60 MINUTES Older, Soila, LEI MAKER.BOX TOE MAKER [address] [place] [address] Referral ID Status Reason Start Date Expiration Date V isits Requested Visits Authorized [id number] Closed PCP Requested Referral 09/02/2024 09/02/2025 1 [...] Comments Patient Question 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 Misbah Elkins MD Primary Care Provider Active Team Status: Inactive Member Role Status Dates Dr. Misbah Elkins MD Primary Care Provider Active Start: November 24, 2024 End: November 24, 2024 Ani Eduardo POLYSTYRENE MOLDING MACHINE TENDER, POLYSTYRENE MOLDING MACHINE TENDER-C Attending Provider Active Start: November 24, 2024 End: November 24, 2024 Ani Eduardo POLYSTYRENE MOLDING MACHINE TENDER, POLYSTYRENE MOLDING MACHINE TENDER-C Referring Provider Active Start: November 24, 2024 [...] art: December 04, 2024 Dr. Aris Black , Other Provider Active Start: December 04, 2024 [...] : December 05, 2024 Dr. Yrn Kahn , [...] Provider Active Sta rt: December 07, 2024 [employer] Operator Relationship Specialty Start Date End Date Misbah Elkins MD [address] [place] [address] PCP - General Internal Medicine 03/26/21 [employer] Operator Relationship Specialty Start Date End Date Misbah Elkins MD [address] [place], [place] [address] PCP - General Internal Medicine 03/26/21 [employer] Operator Relationship Specialty Start Date End Date Misbah Elkins MD [address] [place] [address] PCP - General Internal Medicine 03/26/21 [employer] Operator Relationship Specialty Start Date End Date Misbah Elkins MD [address] [facility] [place] [address] PCP - General Internal Medicine 03/26/21 [employer] Operator Relationship Specialty Start Date End Date Misbah Elkins MD [address] [facility] [place] [address] PCP - General Internal Medicine 03/26/21 [employer]othes Press Operator Relationship Specialty Start Date End Date Misbah Elkins MD [address] [facility] [place] [address] PCP - General Internal Medicine 03/26/21 [employer] Operator Relationship Specialty Start Date End Date Misbah Elkins MD [address] [facility] [place] [address] PCP - General Internal Medicine 03/26/21 [employer] Operator Relationship Specialty Start Date End Date Misbah Elkins MD [address] [facility] [place] [address] PCP - General Internal Medicine 03/26/21 [employer]othes Press Operator Relationship Specialty Start Date End Date Misbah Elkins MD [address] [facility] [place] [address] PCP - General Internal Medicine 03/26/21 [employer]othes [employer] Operator Relationship Specialty Start Date End Date Misbah Elkins MD [address] [facility] [place] [address] PCP - General Internal Medicine 03/26/21 [employer]othes [employer] Operator Relationship Specialty Start Date End Date Misbah Elkins MD [address] [facility] [place] [address] PCP - General Internal Medicine 03/26/21 [employer] Operator Relationship Specialty Start Date End Date Misbah Elkins MD [address] [facility] [place] [address] PCP - General Internal Medicine 03/26/21 [employer] Operator Relationship Specialty Start Date End Date Misbah Elkins MD [address] [place] [address] PCP - General Internal Medicine 03/26/21 Team Status: Active Member Role Status Dates Dr. Bernard Galan III, MD Family Provider Active SOILA OLDER , POLYSTYRENE MOLDING MACHINE TENDER-C Primary Care Provider Active Team Status: Inactive Member Role Status Dates SOILA OLDER , POLYSTYRENE MOLDING MACHINE TENDER-C Primary Care Provider Active Ani Eduardo POLYSTYRENE MOLDING MACHINE TENDER, POLYSTYRENE MOLDING MACHINE TENDER-C Attending Provider, [facility] Active Team Status: Inactive Member Role Status Dates SOILA OLDER , POLYSTYRENE MOLDING MACHINE TENDER-C Primary Care Provider Active Dr. Levar Handy DO Attending Provider, Emergency Provider Active Team Status: Inactive Member Role Status Dates SOILA OLDER , POLYSTYRENE MOLDING MACHINE TENDER-C Primary Care Provider Active Dr. Tasneem Dykes MD Emergency Provider Active [employer] Operator Relationship Specialty Start Date End Date Jaime Aggarwal MD [address] [place] [address] Resident Ophthalmology 11/01/22 Jeffery Jin MD [address] [place] [address] Resident Ophthalmology 11/01/22 Team Status: Active Member Role Status Dates SOILA OLDER , POLYSTYRENE MOLDING MACHINE TENDER-C Primary Care Provider Active Dr. Edmund Tang MD Emergency Provider Active Dr. Ciarra Ross MD Admit Provider, Attending Provider , Other Provider Active Team Status: Active Member Role Status Dates SOILA OLDER , POLYSTYRENE MOLDING MACHINE TENDER-C Primary Care Provider Active Dr. Edmund Tang MD Emergency Provider Active Dr. Ciarra Ross MD Admit Provider, Other Provider Act lopez Dr. Lisa Ochoa MD Attending Provider, Other Provid er Active Team Status: Active Member Role Status Dates SOILA OLDER , POLYSTYRENE MOLDING MACHINE TENDER-C Primary Care Provider Active Dr. Edmund Tang MD Emergency Provider Active Dr. Ciarra Ross MD Admit Provider, Other Provider Act lopez Dr. Freddie Perdue MD Other Provider Active Dr. Gonzalo Sebastian DO Attending Provider, Other Provide r Active Dr. Olivier Coffman MD Other Provider Active Dr. Dieter Harrison MD Other Provider Active Ani Eduardo POLYSTYRENE MOLDING MACHINE TENDER, POLYSTYRENE MOLDING MACHINE TENDER-C Other Provider Active Dr. Anastacia Bonilla MD Other Provider Active Dr. Lisa Ochoa MD Other Provider Active Team Status: Active Member Role Status Lily SHETTYY OLDER , POLYSTYRENE MOLDING MACHINE TENDER-C Primary Care Provider Active Dr. Edmund Tang MD Emergency Provider Active Dr. Ciarra Ross MD Admit Provider, Other Provider Act lopez Dr. Freddie Perdue MD Other Provider Active Dr. Gonzalo Sebastian DO Other Provider Active Dr. Olivier Coffman MD Other Provider Active Dr. Dieter Harrison MD Other Provider Active Ani Eduardo POLYSTYRENE MOLDING MACHINE TENDER, POLYSTYRENE MOLDING MACHINE TENDER-C Other Provider Active Dr. Anastacia Bonilla MD Attending Provider, Other Prov ider Active Dr. Lisa Ochoa MD Other Provider Active Team Status: Active Member Role Status Lily SOILA EASTON , POLYSTYRENE MOLDING MACHINE TENDER-C Primary Care Provider Active Dr. Edmund Tang MD Emergency Provider Active Dr. Ciarra Ross MD Admit Provider, Other Provider Act lopez Dr. Freddie Perdue MD Other Provider Active Dr. Gonzalo Sebastian DO Other Provider Active Dr. Olivier Coffman MD Other Provider Active Dr. Dieter Harrison MD Other Provider Active Ani Eduardo POLYSTYRENE MOLDING MACHINE TENDER, POLYSTYRENE MOLDING MACHINE TENDER-C Other Provider Active Dr. Lisa Ochoa MD Other Provider Active Dr. Courtney Iverson MD Other Provider Active Dr. Anastacia Bonilla MD Attending Provider, Other Prov ider Active Team Status: Active Member Role Status Dates SOILAJony EASTON , POLYSTYRENE MOLDING MACHINE TENDER-C Primary Care Provider Active Dr. Edmund Tang MD Emergency Provider Active Dr. Ciarra Ross MD Admit Provider, Other Provider Act lopez Dr. Freddie Perdue MD Other Provider Active Dr. Gonzalo Sebastian DO Attending Provider, Other Provide r Active Dr. Olivier Coffman MD Other Provider Active Dr. Dieter Harrison MD Other Provider Active Ani Eduardo POLYSTYRENE MOLDING MACHINE TENDER, POLYSTYRENE MOLDING MACHINE TENDER-C Other Provider Active Dr. Lisa Ochoa MD Other Provider Active Dr. Courtney Iverson MD Other Provider Active Dr. Anastacia Bonilla MD Other Provider Active Team Status: Active Member Role Status Dates SOILA OLDER , POLYSTYRENE MOLDING MACHINE TENDER-C Primary Care Provider Active Dr. Donn Galna MD Attending Provider Active Team Status: Active Member Role Status Dates SOILA OLDER , POLYSTYRENE MOLDING MACHINE TENDER-C Primary Care Provider Active Dr. Nacho Vega MD Attending Provider Active Dr. Mahamed Fatima , Referring Provider Active Team Status: Active Member Role Status Dates SOILA EASTON , POLYSTYRENE MOLDING MACHINE TENDER-C Primary Care Provider Active Dr. Edmund Tang [...] Harrison MD Other Provider Active Ani Eduardo POLYSTYRENE MOLDING MACHINE TENDER, POLYSTYRENE MOLDING MACHINE TENDER-C Other Provider Active Dr. Courtney Iverson MD Other Provider Active Team Status: Inactive Member Role Status Dates SOILA OLDER , POLYSTYRENE MOLDING MACHINE TENDER-C Primary Care Provider Active Dr. Tasneem Dykes MD Attending Provider, Emergency Provider Active Team Status: Inactive Member Role Status Dates SOILA EASTON , POLYSTYRENE MOLDING MACHINE TENDER-C Primary Care Provider Active Dr. Edmund Tang [...] Harrison MD Other Provider Active Ani Eduardo POLYSTYRENE MOLDING MACHINE TENDER, POLYSTYRENE MOLDING MACHINE TENDER-C Other Provider Active Dr. Courtney Iverson MD Other Provider Active [employer] Operator Relationship Specialty Start Date End Date Misbah Elkins MD [address] [place] [address] PCP - General Internal Medicine 03/26/21 [employer]othes Press Operator Relationship Specialty Start Date End Date Misbah Elkins MD [address] [place], [place] [address] PCP - General Internal Medicine 03/26/21 [employer] Operator Relationship Specialty Start Date End Date Misbah Elkins MD [address] [place], [place] [address] PCP - General Internal Medicine 03/26/21 [employer] Operator Relationship Specialty Start Date End Date Misbah Elkins MD [address] [place], [place] [address] PCP - General Internal Medicine 03/26/21 [employer]othes [employer] Operator Relationship Specialty Start Date End Date Misbah Elkins MD [address] [place], [place] [id number] PCP - General Internal Medicine 03/26/21 [employer] Press Operator Relationship Specialty Start Date End Date Misbah Elkins MD [address] [place], [place] [id number] PCP - General Internal Medicine 03/26/21 [employer] Press Operator Relationship Specialty Start Date End Date Misbah Elkins MD [address] [place], [place] [address] PCP - General Internal Medicine 03/26/21 Team Status: Active Member Role Status Dates Ani Eduardo POLYSTYRENE MOLDING MACHINE TENDER, POLYSTYRENE MOLDING MACHINE TENDER-C Attending Provider, Referrin g Provider Active SOILA EASTON POLYSTYRENE MOLDING MACHINE TENDER-C Primary Care Provider Active Team Status: Inactive Member Role Status Dates SOILA EASTON POLYSTYRENE MOLDING MACHINE TENDER-C Primary Care Provider Active Dr. Levar Handy , DO Emergency Provider Active [employer] Press Operator Relationship Specialty Start Date End Date Misbah Elkins MD [address] [place] [address] PCP - General Internal Medicine 03/26/21 Steam Clothes Press Operator Relationship Specialty Start Date End Date Misbah Elkins MD [address] [place], [place] [id number] PCP - General Internal Medicine 03/26/21 Team Status: Inactive Member Role Status Dates SOILA EASTON POLYSTYRENE MOLDING MACHINE TENDER-C Primary Care Provider, Referring Prov ider Active Ani Eduardo POLYSTYRENE MOLDING MACHINE TENDER, POLYSTYRENE MOLDING MACHINE TENDER-C Attending Provider Active Team Status: Inactive Member Role Status Dates Ani Eduardo POLYSTYRENE MOLDING MACHINE TENDER, POLYSTYRENE MOLDING MACHINE TENDER-C Attending Provider, Referrin g Provider Active SOILA EASTON , POLYSTYRENE MOLDING MACHINE TENDER-C Primary Care Provider Active [employer] Press Operator Relationship Specialty Start Date End Date Misbah Elkins MD [address] [place] [address] PCP - General Internal Medicine 03/26/21 Steam Clothes Press Operator Relationship Specialty Start Date End Date Misbah Elkins MD [address] [place] [address] PCP - General Internal Medicine 03/26/21 Team Status: Active Member Role Status Dates Dr. Bernard Galan III, MD Family Provider Active Anat Brock POLYSTYRENE MOLDING MACHINE TENDER, POLYSTYRENE MOLDING MACHINE TENDER-C Primary Care Provider Active Team Status: Active Member Role Status Dates Dr. Víctor Huerta DO Emergency Provider Active Anat Brock POLYSTYRENE MOLDING MACHINE TENDER, POLYSTYRENE MOLDING MACHINE TENDER-C Primary Care Provider Active Dr. Carin Meraz MD Admit Provider, Attending Prov ider Active Team Status: Active Member Role Status Dates Dr. Víctor Huerta DO Emergency Provider Active Anat Arangor POLYSTYRENE MOLDING MACHINE TENDER, POLYSTYRENE MOLDING MACHINE TENDER-C Primary Care Provider Active Dr. Carin Meraz MD Admit Provider, Other Provider Active Dr. Anastacia Bonilla MD Attending Provider, Other Prov ider Active Team Status: Active Member Role Status Dates Dr. Víctor Huerta DO Emergency Provider Active Anat Arangor POLYSTYRENE MOLDING MACHINE TENDER, POLYSTYRENE MOLDING MACHINE TENDER-C Primary Care Provider Active Dr. Carin Meraz MD Admit Provider, Other Provider Active Dr. Bert Greenwood MD Attending Provider, Other Provi mary Active Dr. Anastacia Bonilla MD Other Provider Active Team Status: Inactive Member Role Status Dates Dr. Víctor Huerta DO Emergency Provider Active Anat Gutiérrez POLYSTYRENE MOLDING MACHINE TENDER, POLYSTYRENE MOLDING MACHINE TENDER-C Primary Care Provider Active Dr. Carin Meraz MD Admit Provider, Other Provider Active Dr. Bert Greenwood MD Attending Provider Active Dr. Anastacia Bonilla MD Other Provider Active [employer] Press Operator Relationship Specialty Start Date End Date Misbah Elkins MD [address] [place] [address] PCP - General Internal Medicine 03/26/21 Steam Clothes Press Operator Relationship Specialty Start Date End Date Misbah Elkins MD [address] [place] [address] PCP - General Internal Medicine 03/26/21 Steam Clothes Press Operator Relationship Specialty Start Date End Date Misbah Elkins MD [address] [place] [address] PCP - General Internal Medicine 03/26/21 Team Status: Inactive Member Role Status Dates Anat Gutiérrez POLYSTYRENE MOLDING MACHINE TENDER, POLYSTYRENE MOLDING MACHINE TENDER-C Primary Care Provider Active Dr. Erik Gomez MD Emergency Provider Active Steam [employer] Press Operator Relationship Specialty Start Date End Date Misbah Elkins MD [address] [place] [address] PCP - General Internal Medicine 03/26/21 Steam Clothes Press Operator Relationship Specialty Start Date End Date Misbah Elkins MD [address] [place] [address] PCP - General Internal Medicine 03/26/21 Steam Clothes Press Operator Relationship Specialty Start Date End Date Misbah Elkins MD [address] [place] [address] PCP - General Internal Medicine 03/26/21 Steam Clothes Press Operator Relationship Specialty Start Date End Date Misbah Elkins MD [address] [place] [address] PCP - General Internal Medicine 03/26/21 Steam Clothes Press Operator Relationship Specialty Start Date End Date Misbah Elkins MD [address] [place] [address] PCP - General Internal Medicine 03/26/21 Steam Clothes Press Operator Relationship Specialty Start Date End Date Misbah Elkins MD [address] [facility] [place] [address] PCP - General Internal Medicine 03/26/21 Steam Clothes Press Operator Relationship Specialty Start Date End Date Misbah Elkins MD [address] [facility] [place] [address] PCP - General Internal Medicine 03/26/21 Steam Clothes Press Operator Relationship Specialty Start Date End Date Misbah Elkins MD [address] [place] [address] PCP - General Internal Medicine 03/26/21 Steam Clothes Press Operator Relationship Specialty Start Date End Date Misbah Elkins MD [address] [place] [address] PCP - General Internal Medicine 03/26/21 Steam Clothes Press Operator Relationship Specialty Start Date End Date Misbah Elkins MD [address] [place] [address] PCP - General Internal Medicine 03/26/21 Steam Clothes Press Operator Relationship Specialty Start Date End Date Misbah Elkins MD [address] [place] [address] PCP - General Internal Medicine 03/26/21 Steam Clothes Press Operator Relationship Specialty Start Date End Date Misbah Elkins MD [address] [place] [address] PCP - General Internal Medicine 03/26/21 Steam Clothes Press Operator Relationship Specialty Start Date End Date Misbah Elkins MD [address] [place] [address] PCP - General Internal Medicine 03/26/21 Steam Clothes Press Operator Relationship Specialty Start Date End Date Misbah Elkins MD [address] [place] [address] PCP - General Internal Medicine 03/26/21 Steam Clothes Press Operator Relationship Specialty Start Date End Date Misbah Elkins MD [address] [place] [address] PCP - General Internal Medicine 03/26/21 Steam Clothes Press Operator Relationship Specialty Start Date End Date Misbah Elkins MD [address] [place] [address] PCP - General Internal Medicine 03/26/21 Steam Clothes Press Operator Relationship Specialty Start Date End Date Misbah Elkins MD [address] [place] [address] PCP - General Internal Medicine 03/26/21 Steam [employer]othes Press Operator Relationship Specialty Start Date End Date Mibsah Elkins MD [address] [place] [address] PCP - General Internal Medicine 03/26/21 Larry Talley PA-C [address] [place] [address] [employer] [facility] 09/04/24 Soila Easton APRN.CNP [address] [place] [address] [employer] Internal Medicine 09/04/24 Nara Larson PA-C [address] [place] [address] [employer] [facility] 09/04/24 [employer] Press Operator Relationship Specialty Start Date End Date Misbah Elkins MD [address] [facility] [place] [address] PCP - General Internal Medicine 03/26/21 Larry Talley PA-C [address] [place] [address] [facility] 09/04/24 Soila Easton APRN.BOX TOE MAKER [address] [facility] [place] [address] [employer] Internal Medicine 09/04/24 Nara Larson PA-C [address] [facility] [place] [address] [facility] 09/04/24 Steam Clothes Press Operator Relationship Specialty Start Date End Date Misbah Elkins MD [address] [facility] [place] [address] PCP - General Internal Medicine 03/26/21 Larry Talley PA-C [address] [place] [address] [facility] 09/04/24 Soila Easton, LEI MAKER.BOX TOE MAKER [address] [facility] [place] [address] [employer] [facility] Internal Medicine 09/04/24 Nara Larson PA-C [address] [facility] [place] [address] [facility] 09/04/24 Steam [employer]othes Press Operator Relationship Specialty Start Date End Date Misbah Elkins MD [address] [place] [address] PCP - General Internal Medicine 03/26/21 Larry Talley PA-C [address] [place] [address] [employer] [facility] 09/04/24 Soila Easton APRN.BOX TOE MAKER [address] [place] [address] [employer] Internal Medicine 09/04/24 Nara Larson PA-C [address] [place] [address] [employer] [facility] 09/04/24 Steam Clothes Press Operator Relationship Specialty Start Date End Date Misbah Elkins MD [address] [place] [address] PCP - General Internal Medicine 03/26/21 Larry Talley PA-C [address] [place] [address] [employer] [facility] 09/04/24 Solia Easton APRN.BOX TOE MAKER [address] [place] [address] [employer] Internal [facility] 09/04/24 Nara Larson PA-C [address] [place] [address] [facility] 09/04/24 Steam [employer]othes Press Operator Relationship Specialty Start Date End Date Misbah Elkins MD [address] [place] [address] PCP - General Internal Medicine 03/26/21 Larry Talley PA-C [address] [place] [address] [employer] [facility] 09/04/24 Soila Easton APRN.BOX TOE MAKER [address] [facility] [place] [address] [employer] [facility] Internal Medicine 09/04/24 Nara Larson PA-C [address] [place] [address] [facility] [employer] Press Operator Relationship Specialty Start Date End Date Misbah Elkins MD [address] [place] [address] PCP - General Internal Medicine 03/26/21 Larry Talley PA-C [address] [place], [place] [id number] [phone] [facility] 09/04/24 Soila Easton APRN.BOX TOE MAKER [address] [facility] [place] [address] [employer] [facility] Internal Medicine 09/04/24 Nara Larson PA-C [address] [facility] [place] [address] [employer] Family [facility] 09/04/24 Steam Clothes Press Operator Relationship Specialty Start Date End Date Misbah Elkins MD [address] [facility] [place] [address] PCP - General Internal Medicine 03/26/21 Larry Talley PA-C [address] [place] [address] [employer] [facility] 09/04/24 Soila Easton APRN.BOX TOE MAKER [address] [place] [address] [employer] [facility] 09/04/24 Nara Larson PA-C [address] [place] [address] [facility] 09/04/24 Steam Clothes Press Operator Relationship Specialty Start Date End Date Misbah Elkins MD [address] [place] [address] PCP - General Internal Medicine 03/26/21 Larry Talley PA-C [address] [place] [address] [employer] [facility] 09/04/24 Soila Easton APRN.BOX TOE MAKER [address] [place] [address] [facility] 09/04/24 Nara Larson PA-C [address] [place] [address] [facility] 09/04/24 Steam [employer]othes Press Operator Relationship Specialty Start Date End Date Misbah Elkins MD [address] [place] [address] PCP - General Internal Medicine 03/26/21 Larry Talley PA-C [address] [place] [address] [facility] 09/04/24 Soila Easton APRN.BOX TOE MAKER [address] [facility] [place] [address] [facility] Internal Medicine 09/04/24 Nara Larson PA-C [address] [facility] [place] [address] [facility] Family [facility] 09/04/24 Steam Clothes Press Operator Relationship Specialty Start Date End Date Misbah Elkins MD [address] [facility] [place] [address] PCP - General Internal Medicine 03/26/21 Soila Easton APRN.BOX TOE MAKER [address] [facility] [place] [address] [facility] Internal Medicine 09/04/24 Steam Clothes Press Operator Relationship Specialty Start Date End Date Misbah Elkins MD [address] [facility] [place] [address] PCP - General Internal Medicine 03/26/21 Soila Easton APRN.BOX TOE MAKER [address] [facility] [place] [address] [employer] [facility] 09/04/24 Steam Clothes Press Operator Relationship Specialty Start Date End Date Misbah Elkins MD [address] [facility] [place] [address] PCP - General Internal Medicine 03/26/21 Soila Easton APRN.BOX TOE MAKER [address] [facility] [place] [address] [employer] [facility] 09/04/24 Steam Clothes Press Operator Relationship Specialty Start Date End Date Misbah Elkins MD [address] [facility] [place], [place] [address] PCP - General Internal Medicine 03/26/21 Soila Easton APRN.BOX TOE MAKER [address] [facility] [place] [address] [employer] [facility] 09/04/24 Team Status: Active Member Role Status Dates Dr. Misbah Elkins MD Primary Care Provider Active Start: November 24, 2024 Ani Eduardo POLYSTYRENE MOLDING MACHINE TENDER, POLYSTYRENE MOLDING MACHINE TENDER-C Attending Provider Active Start: November 24, 2024 Ani Eduardo POLYSTYRENE MOLDING MACHINE TENDER, POLYSTYRENE MOLDING MACHINE TENDER-C Referring Provider Active Start: November 24, 2024 Team Status: Active Member Role Status Dates Dr. Misbah Elkins MD Primary Care Provider Active Start: December 04, 2024 Dr. Franco Inman MD Emergency Provider Active S tart: December 04, 2024 Dr. Aleta Aguayo DO Admit Provider Active Start : December 04, 2024 Dr. Aleta Aguayo DO Attending Provider Active S tart: December 04, 2024 Steam [employer]othes Press Operator Relationship Specialty Start Date End Date Misbah Elkins MD [address] [facility] [place], [place] [address] PCP - General Internal Medicine 03/26/21 Soila Easton APRN.BOX TOE MAKER [address] [facility], [place] [address] [facility] Internal Medicine 09/04/24 Team Status: Inactive [...] Active Start: December 09, 2024 Dr. Jaime eRy MD Other Provider Active Start : December [...] t: December 10, 2024 Dr. Hever Marrufo DO Other Provider Active St art: December 10, [...] Active Member Role Status Dates Dr. Misbah Elkisn MD Primary Care Provider Active Start: December [...] December 08, 2024 Dr. Yrn Kahn , Referring Provider Active Start: December 08, 2024 [...] art: December 08, 2024 Dr. Aris Black , Other Provider Active Start: December 08, 2024 [...] December 09, 2024 Dr. Yrn Kahn , Referring Provider Active Start: December 09, 2024 Dr. Yrn Kahn , [...] December 12, 2024 Dr. Marshal Segura , Attending Provider Active Start: December 12, 2024 [...] 2024 End: December 23, 2024 Ani Eduardo POLYSTYRENE MOLDING MACHINE TENDER, POLYSTYRENE MOLDING MACHINE TENDER-C Attending Provider Active Start: December 23, 2024 End: December 23, 2024 Team Status: Inactive Member Role Status Dates Dr. Misbah Elkins MD Primary Care Provider Active Start: December 24, 2024 End: December 24, 2024 Dr. Mo Velasco DO Emergency Provider Active Start : December 24, 2024 End: December 24, 2024 Steam Clothes Press Operator Relationship Specialty Start Date End Date Misbah Elkins MD [address] [place], [place] [address] PCP - General Internal Medicine 03/26/21 Soila Easton APRN.CNP [address] [place] [address] [employer] [facility] 09/04/24 Team Status: Inactive Member [...] January 01, 2025 End: January 01, 2025 Steam Clothes Press Operator Relationship Specialty Start Date End Date Misbah Elkins MD [address] [place] [address] PCP - General Internal Medicine 03/26/21 Soila Easton APRN.BOX TOE MAKER [address] [place] [address] [employer] [facility] 09/04/24 Steam Clothes Press Operator Relationship Specialty Start Date End Date Misbah Elkins MD [address] [facility] [place] [address] PCP - General Internal Medicine 03/26/21 Soila Easton APRN.BOX TOE MAKER [address] [facility] [place] [address] [employer] [facility] 09/04/24 Steam Clothes Press Operator Relationship Specialty Start Date End Date Misbah Elkins MD [address] [place] [address] PCP - General Internal Medicine 03/26/21 Soila Easton APRN.BOX TOE MAKER [address] [facility] [place] [address] [employer] Internal [facility] 09/04/24 Steam Clothes Press Operator Relationship Specialty Start Date End Date Misbah Elkins MD [address] [place] [address] PCP - General Internal Medicine 03/26/21 Soila Easton APRN.BOX TOE MAKER [address] [facility] [place] [address] [employer] Internal [facility] 09/04/24 Team Status: Inactive Member [...] Inactive Member Role Status Dates Anat Gutiérrez POLYSTYRENE MOLDING MACHINE TENDER, POLYSTYRENE MOLDING MACHINE TENDER-C Referring Provider Active Start: February 08, 2025 End: February 08, 2025 Ani Eduardo POLYSTYRENE MOLDING MACHINE TENDER, POLYSTYRENE MOLDING MACHINE TENDER-C Attending Provider Active Start: February 08, 2025 End: February 08, 2025 Dr. Misbah Elkins MD Primary Care Provider Active Start: February 08, 2025 End: February 08, 2025 Steam Clothes Press Operator Relationship Specialty Start Date End Date Misbah Elkins MD [address] [place], [place] [address] PCP - General Internal Medicine 03/26/21 Soila Easton, UNA.BOX TOE MAKER [address] [facility], [place] [address] [facility] Internal Medicine 09/04/24 Steam Clothes Press Operator Relationship Specialty Start Date End Date Misbah Elkins MD [address] [place], [place] [address] PCP - General Internal Medicine 03/26/21 Soila Easton APRN.BOX TOE MAKER [address] [facility] [place] [address] [facility] Internal Medicine 09/04/24 Team Status: Inactive Member Role Status Dates Dr. Misbah Elknis MD Primary Care Provider Active Start: February 26, 2025 End: February 26, 2025 Dr. Franco Inman MD Emergency Provider Active S tart: February 26, 2025 End: February 26, 2025 Steam [employer]othes Press Operator Relationship Specialty Start Date End Date Misbah Elkins MD [address] [place] [address] PCP - General Internal Medicine 03/26/21 Older, UNA Romero.BOX TOE MAKER [address] [place], [place] [address] [facility] Internal Medicine 09/04/24 Team Status: Inactive [...] 13, 2025 End: March 15, 2025 Dr. Ryna Ortega MD Other Provider Active Start: March [...] Provider Active Sta rt: March 15, 2025 Steam Clothes Press Operator Relationship Specialty Start Date End Date Misbah Elkins MD [address] [facility] [place] [address] PCP - General Internal Medicine 03/26/21 Soila Easton APRN.BOX TOE MAKER [address] [facility] [place] [address] [employer] Internal [facility] 09/04/24 Steam Clothes Press Operator Relationship Specialty Start Date End Date Misbah Elkins MD [address] [facility] [place] [address] PCP - General Internal Medicine 03/26/21 Soila Easton APRN.BOX TOE MAKER [address] [place] [address] [employer] [facility] Internal Medicine 09/04/24 Elisa Branch MD [employer]ounter 03/23/25 04/06/25 Steam Clothes Press Operator Relationship Specialty Start Date End Date Misbah Elkins MD [address] [facility] [place] [address] PCP - General Internal Medicine 03/26/21 Soila Easton APRN.BOX TOE MAKER [address] [facility] [place] [address] [employer] [facility] Internal Medicine 09/04/24 Elisa Branch MD [employer] 03/23/25 04/06/25 Steam Clothes Press Operator Relationship Specialty Start Date End Date Misbah Elkins MD [address] [facility] [place] [address] PCP - General Internal Medicine 03/26/21 Soila Easton APRN.BOX TOE MAKER [address] [place] [address] [employer] Internal Medicine 09/04/24 Elisa Branch MD [employer] 03/23/25 04/06/25 Steam Clothes Press Operator Relationship Specialty Start Date End Date Misbah Elkins MD [address] [facility] [place] [address] PCP - General Internal Medicine 03/26/21 Soila Easton APRN.BOX TOE MAKER [address] [place] [address] [employer] [facility] Internal Medicine 09/04/24 Elisa Branch MD [employer] 03/23/25 04/06/25 Steam Clothes Press Operator Relationship Specialty Start Date End Date Misbah Elkins MD [address] [facility] [place] [address] PCP - General Internal Medicine 03/26/21 Soila Easton APRN.BOX TOE MAKER [address] [facility] [place] [address] [employer] [facility] Internal Medicine 09/04/24 Elisa Branch MD [employer] 03/23/25 04/06/25 Steam Clothes Press Operator Relationship Specialty Start Date End Date Misbah Elkins MD [address] [facility] [place] [address] PCP - General Internal Medicine 03/26/21 Soila Easton APRN.BOX TOE MAKER [address] [place] [address] [employer] Internal Medicine 09/04/24 Team Status: Active Member [...] Active Start : December 12, 2024 Dr. Aanstacia Bonilla MD Referring Provider Active Start: December 12, 2024 Dr. Anastacia Bonilla MD Other Provider Active St art: December 12, 2024 Dr. Yrn Kahn Other Provider Active S tart: December 12, [...] 2024 End: December 23, 2024 Ani Eduardo POLYSTYRENE MOLDING MACHINE TENDER, POLYSTYRENE MOLDING MACHINE TENDER-C Attending Provider Active Start: December 23, 2024 [...] Inactive Member Role/Relationship Status Dates Anat Gutiérrez POLYSTYRENE MOLDING MACHINE TENDER, POLYSTYRENE MOLDING MACHINE TENDER-C Referring Provider Active Start: February 08, 2025 End: February 08, 2025 Ani Eduardo POLYSTYRENE MOLDING MACHINE TENDER, POLYSTYRENE MOLDING MACHINE TENDER-C Attending Provider Active Start: February 08, 2025 [...] t: March 15, 2025 Dr. Hever Marrufo , Other Provider Active St art: March 15, [...] 2025 End: April 10, 2025 Ani Eduardo POLYSTYRENE MOLDING MACHINE TENDER, POLYSTYRENE MOLDING MACHINE TENDER-C Attending Provider Active Start: April 10, 2025 End: April 10, 2025 Steam Clothes Press Operator Relationship Specialty Start Date End Date Misbah Elkins MD [address] [place] [address] PCP - General Internal Medicine 03/26/21 Older, Soila, LEI MAKER.BOX TOE MAKER [address] [place] [address] [facility] Internal Medicine 09/04/24 Steam [employer] Press Operator Relationship Specialty Start Date End Date Misbah Elkins MD [address] [place], [place] [address] PCP - General Internal Medicine 03/26/21 Older, Soila, LEI MAKER.BOX TOE MAKER [address] [place] [address] [employer] [facility] Internal Medicine 09/04/24 Team Status: Inactive Member Role/Relationship Status Dates Dr. Misbah Elkins MD Primary Care Provider Active Start: December 23, 2024 End: December 23, 2024 Dr. Misbah Elkins MD Referring Provider Active Start: December 23, 2024 End: December 23, 2024 Ani Eduardo POLYSTYRENE MOLDING MACHINE TENDER, POLYSTYRENE MOLDING MACHINE TENDER-C Attending Provider Active Start: December 23, 2024 [...] Inactive Member Role/Relationship Status Dates Anat Gutiérrez POLYSTYRENE MOLDING MACHINE TENDER, POLYSTYRENE MOLDING MACHINE TENDER-C Referring Provider Active Start: February 08, 2025 End: February 08, 2025 Ani Eduardo POLYSTYRENE MOLDING MACHINE TENDER, POLYSTYRENE MOLDING MACHINE TENDER-C Attending Provider Active Start: February 08, 2025 [...] 13, 2025 End: March 15, 2025 Dr. aPko Fernández MD Admit Provider Active Star t: [...] 2025 End: April 10, 2025 Ani Eduardo POLYSTYRENE MOLDING MACHINE TENDER, POLYSTYRENE MOLDING MACHINE TENDER-C Attending Provider Active Start: April 10, 2025 End: April 10, 2025 Team Status: Active Member Role/Relationship Status Dates Dr. Misbah Elkins MD Primary Care Provider Active Start: April 16, 2025 Dr. Erik Gomez MD Referring Provider Active Start: April 16, 2025 Dr. Erik Gomez MD Emergency Provider Active Start: April 16, 2025 Dr. Jackson Monk DO Admit Provider Active Start: April 16, 2025 Dr. Jackson Monk DO Attending Provider Active Start: April 16, 2025 Team Status: Inactive Member Role/Relationship Status Dates Dr. Misbah lEkins MD Primary Care Provider Active Start: April 16, 2025 End: April 19, 2025 Dr. Erik Gomez MD Referring Provider Active Start: April 16, 2025 End: April 19, 2025 Dr. Erik Gomez MD Emergency Provider Active Start: April 16, 2025 End: April 19, 2025 Dr. Jackson Monk DO Admit Provider Active Start: April 16, 2025 End: April 19, 2025 Dr. Jackson Monk DO Other Provider Active Start: April 16, 2025 End: April 19, 2025 Dr. Sudhir Izquierdo MD Attending Provider Active Start: April 16, 2025 End: April 19, 2025 Dr. Bert Greenwood MD Other Provider Active Sta rt: April 16, 2025 End: April 19, 2025 Team Status: Active Member Role/Relationship Status Dates Dr. Misbah Elkins MD Primary Care Provider Active Start: April 17, 2025 Dr. Erik Gomez MD Referring Provider Active Start: April 17, 2025 Dr. Erik Gomez MD Emergency Provider Active Start: April 17, 2025 Dr. Jackson Monk DO Admit Provider Active Start: April 17, 2025 Dr. Jackson Monk DO Other Provider Active Start: April 17, 2025 Dr. Bert Greenwood MD Attending Provider Active Start: April 17, 2025 Dr. Bert Greenwood MD Other Provider Active Sta rt: April 17, 2025 Team Status: Active Member Role/Relationship Status Dates Dr. Misbah Elkins MD Primary Care Provider Active Start: April 18, 2025 Dr. Erik Gomez MD Referring Provider Active Start: April 18, 2025 Dr. Erik Gomez MD Emergency Provider Active Start: April 18, 2025 Dr. Jackson Monk DO Admit Provider Active Start: April 18, 2025 Dr. Jackson Monk DO Other Provider Active Start: April 18, 2025 Dr. Sudhir Izquierdo MD Attending Provider Active Start: April 18, 2025 Dr. Sudhir Izquierdo MD Other Provider Active Start: April 18, 2025 Dr. Bert Greenwood MD Other Provider Active Sta rt: April 18, 2025 [employer] Clothes Press Operator Relationship Specialty Start Date End Date Misbah Elkins MD [address] [place], [place] [id number] PCP - General Internal Medicine 03/26/21 Soila Easton APRN.BOX TOE MAKER [address] [place], [place] [id number] Die Mounter Internal Medicine 09/04/24 Steam Clothes Press Operator Relationship Specialty Start Date End Date Misbah Elkins MD [address] [place], [place] [id number] PCP - General Internal Medicine 03/26/21 Soila Easton, LEI MAKER.BOX TOE MAKER [address] [facility] [place] [address] Die Mounter Internal Medicine 09/04/24 Steam Clothes Press Operator Relationship Specialty Start Date End Date Misbah Elkins MD [address] [facility] [place], [place] [id number] PCP - General Internal Medicine 03/26/21 Soila Easton, LEI MAKER.BOX TOE MAKER [address] [facility] [place] [address] Die Mounter Internal Medicine 09/04/24 Team Status: Inactive Member Role/Relationship Status Dates [...] Inactive Member Role/Relationship Status Dates Anat Gutiérrez POLYSTYRENE MOLDING MACHINE TENDER, POLYSTYRENE MOLDING MACHINE TENDER-C Referring Provider Active Start: February 08, 2025 End: February 08, 2025 Ani Eduardo POLYSTYRENE MOLDING MACHINE TENDER, POLYSTYRENE MOLDING MACHINE TENDER-C Attending Provider Active Start: February 08, 2025 [...] t: March 15, 2025 Dr. Hever Marrufo , Other Provider Active St art: March 15, [...] Start: March 15, 2025 Dr. Macario Alex , Emergency Provider Activ e Start: March 15, [...] Active St art: March 15, 2025 Dr. Franik Jackson MD Other Provider Active Star t: [...] Sta rt: March 16, 2025 Dr. Sylvia Hrut MD Other Provider Active Sta rt: March [...] 2025 End: April 10, 2025 Ani Eduardo POLYSTYRENE MOLDING MACHINE TENDER, POLYSTYRENE MOLDING MACHINE TENDER-C Attending Provider Active Start: April 10, 2025 End: April 10, 2025 Team Status: Inactive Member Role/Relationship Status Dates Dr. Misbah Elkins MD Primary Care Provider Active Start: April 16, 2025 End: April 19, 2025 Dr. Erik Gomez MD Referring Provider Active Start: April 16, 2025 End: April 19, 2025 Dr. Erik Gomez MD Emergency Provider Active Start: April 16, 2025 End: April 19, 2025 Dr. Jackson Monk DO Admit Provider Active Start: April 16, 2025 End: April 19, 2025 Dr. Jackson Monk DO Other Provider Active Start: April 16, 2025 End: April 19, 2025 Dr. Sudhir Izquierdo MD Attending Provider Active Start: April 16, 2025 End: April 19, 2025 Dr. Bert Greenwood MD Other Provider Active Sta rt: April 16, 2025 End: April 19, 2025 Team Status: Active Member Role/Relationship Status Dates Dr. Misbah Elkins MD Primary Care Provider Active Start: April 17, 2025 Dr. Erik Gomez MD Emergency Provider Active Start: April 17, 2025 Dr. Jackson Monk DO Admit Provider Active Start: April 17, 2025 Dr. Jackson Monk DO Other Provider Active Start: April 17, 2025 Dr. Bert Greenwood MD Attending Provider Active Start: April 17, 2025 Dr. Bert Greenwood MD Other Provider Active Sta rt: April 17, 2025 Team Status: Active Member Role/Relationship Status Dates Dr. Misbah Elkins MD Primary Care Provider Active Start: April 18, 2025 Dr. Erik Gomez MD Referring Provider Active Start: April 18, 2025 Dr. Erik Gomez MD Emergency Provider Active Start: April 18, 2025 Dr. Jackson Monk DO Admit Provider Active Start: April 18, 2025 Dr. Jackson Monk DO Other Provider Active Start: April 18, 2025 Dr. Sudhir Izquierdo MD Attending Provider Active Start: April 18, 2025 Dr. Sudhir Izquierdo MD Other Provider Active Start: April 18, 2025 Dr. Bert Greenwood MD Other Provider Active Sta rt: April 18, 2025 Team Status: Active Member Role/Relationship Status Dates Dr. Misbah Elkins MD Primary Care Provider Active Start: April 19, 2025 Dr. Erik Gomez MD Referring Provider Active Start: April 19, 2025 Dr. Erik Gomez MD Emergency Provider Active Start: April 19, 2025 Dr. Jackson Monk DO Admit Provider Active Start: April 19, 2025 Dr. Jackson Monk , Other Provider Active Start: April 19, 2025 Dr. Sudhir Izquierdo MD Attending Provider Active Start: April 19, 2025 Dr. Sudhir Izquierdo MD Other Provider Active Start: April 19, 2025 Dr. Bert Greenwood MD Other Provider Active Sta rt: April 19, 2025 Team Status: Inactive Member Role/Relationship Status Dates Dr. Misbah Elkins MD Primary Care Provider Active Start: April 26, 2025 End: April 26, 2025 Dr. Misbah Elkins MD Referring Provider Active Start: April 26, 2025 End: April 26, 2025 RICARDO Corral Attending Provider Active Start: April 26, 2025 End: April 26, 2025 Team Status: Inactive Member Role/Relationship Status [...] Inactive Member Role/Relationship Status Dates Anat Gutiérrez POLYSTYRENE MOLDING MACHINE TENDER, POLYSTYRENE MOLDING MACHINE TENDER-C Referring Provider Active Start: February 08, 2025 End: February 08, 2025 Ani Eduardo POLYSTYRENE MOLDING MACHINE TENDER, POLYSTYRENE MOLDING MACHINE TENDER-C Attending Provider Active Start: February 08, 2025 [...] 26, 2025 End: February 26, 2025 Dr. Frnaco Inman MD Emergency Provider Active S tart: [...] t: March 15, 2025 Dr. Hever Marrufo , Other Provider Active St art: March 15, [...] 2025 End: April 10, 2025 Ani Eduardo NP, POLYSTYRENE MOLDING MACHINE TENDER-C Attending Provider Active Start: April 10, 2025 End: April 10, 2025 Team Status: Inactive Member Role/Relationship Status Dates Dr. Misbah Elkins MD Primary Care Provider Active Start: April 16, 2025 End: April 19, 2025 Dr. Erik Gomez MD Referring Provider Active Start: April 16, 2025 End: April 19, 2025 Dr. Erki Gomez MD Emergency Provider Active Start: April 16, 2025 End: April 19, 2025 Dr. Jackson Monk DO Admit Provider Active Start: April 16, 2025 End: April 19, 2025 Dr. Jackson Monk DO Other Provider Active Start: April 16, 2025 End: April 19, 2025 Dr. Sudhir Izquierdo MD Attending Provider Active Start: April 16, 2025 End: April 19, 2025 Dr. Bert Greenwood MD Other Provider Active Sta rt: April 16, 2025 End: April 19, 2025 Team Status: Active Member Role/Relationship Status Dates Dr. Misbah Elkins MD Primary Care Provider Active Start: April 17, 2025 Dr. Erik Gomez MD Emergency Provider Active Start: April 17, 2025 Dr. Jackson Monk DO Admit Provider Active Start: April 17, 2025 Dr. Jackson Monk DO Other Provider Active Start: April 17, 2025 Dr. Bert Greenwood MD Attending Provider Active Start: April 17, 2025 Dr. Bert Greenwood MD Other Provider Active Sta rt: April 17, 2025 Team Status: Active Member Role/Relationship Status Dates Dr. Misbah Elkins MD Primary Care Provider Active Start: April 18, 2025 Dr. Erik Gomez MD Emergency Provider Active Start: April 18, 2025 Dr. Jackson Monk DO Admit Provider Active Start: April 18, 2025 Dr. Jackson Monk DO Other Provider Active Start: April 18, 2025 Dr. Sudhir Izquierdo MD Attending Provider Active Start: April 18, 2025 Dr. Sudhir Izquierdo MD Other Provider Active Start: April 18, 2025 Dr. Bert Greenwood MD Other Provider Active Sta rt: April 18, 2025 Team Status: Active Member Role/Relationship Status Dates Dr. Misbah Elkins MD Primary Care Provider Active Start: April 19, 2025 Dr. Erik Gomez MD Emergency Provider Active Start: April 19, 2025 Dr. Jackson Monk DO Admit Provider Active Start: April 19, 2025 Dr. Jackson Monk DO Other Provider Active Start: April 19, 2025 Dr. Sudhir Izquierdo MD Attending Provider Active Start: April 19, 2025 Dr. Sudhir Izquierdo MD Other Provider Active Start: April 19, 2025 Dr. Bert Greenwood MD Other Provider Active Sta rt: April 19, 2025 Team Status: Inactive Member Role/Relationship Status Dates Dr. Misbah Elkins MD Primary Care Provider Active Start: April 26, 2025 End: April 26, 2025 Dr. Misbah Elkins MD Referring Provider Active Start: April 26, 2025 End: April 26, 2025 RICARDO Corral Attending Provider Active Start: April 26, 2025 End: April 26, 2025 Team Status: Inactive Member Role/Relationship Status Dates Dr. Misbah Elkins MD Primary Care Provider Active Start: April 26, 2025 End: April 26, 2025 RICARDO Corral Attending Provider Active Start: April 26, 2025 End: April 26, 2025 RICARDO Corral Referring Provider Active Start: April 26, 2025 End: April 26, 2025 Team Status: Active Member Role/Relationship Status Dates Dr. Misbah Elkins MD Primary Care Provider Active Start: April 27, 2025 RICARDO Corral Attending Provider Active Start: April 27, 2025 RICARDO Corral Referring Provider Active Start: April 27, 2025 Team Status: Inactive Member Role/Relationship Status Dates Dr. Misbah Elkins MD Primary Care Provider Active Start: April 27, 2025 End: April 27, 2025 RICARDO Corral Attending Provider Active Start: April 27, 2025 End: April 27, 2025 RICARDO Corral Referring Provider Active Start: April 27, 2025 End: April 27, 2025 Goals (unrecognized section and content) Goals may [...] BE BASED ON THE PRIMARY CLINICAL RECORDS. [employer] provides no warranty or guarantee of the accuracy or completeness of information in this document.
--- NOTE | 2025-05-10 21:35 | CT_ITS ---
PROCEDURE: CT ABDOMEN/PELVIS W IV CONT ONLY 05/10/2025 REASON FOR EXAM: CHRONIC PANCREATITIS TECHNIQUE: CT ABDOMEN/PELVIS W IV CONT ONLY. Coronal and Sagittal reconstruction series were provided. CONTRAST: Isovue 370 VOLUME: 96 mL One or more dose reduction techniques were used (e.g., Automated exposure control, adjustment of the mA and/or kV according to patient size, use of iterative reconstruction technique. RADIATION DOSE SUMMARY: DLP: 599.92 mGycm COMPARISON: 04/15/2025 FINDINGS: Lung bases: Clear. Prominent mitral annulus calcification. Liver: No significant abnormality. Tiny cyst in the right lobe. Gallbladder: Surgically absent. Spleen: Normal size and morphology. Pancreas: Stent traversing the main pancreatic duct terminating in the transverse duodenum. No ductal dilatation. Extensive parenchymal calcifications in the head/neck region, sequelae of chronic pancreatitis. Resolution of prior acute peripancreatic inflammation/edema from 04/15/2025. Adrenals: Unremarkable. Kidneys: Atrophic right kidney. Symmetric enhancement. No urolithiasis or hydroureteronephrosis. Small simple appearing left upper pole renal cyst. Bladder: Unremarkable. Reproductive Organs: Unremarkable appearance of the uterus and adnexae. Bowel: No bowel obstruction or active inflammatory process. Appendix is surgically absent. Mild scattered colonic diverticulosis without evidence for active diverticulitis/colitis. Lymph nodes: No suspicious lymph node enlargement. Vasculature: Normal caliber abdominal aorta and IVC. Moderate-advanced atherosclerotic disease. Peritoneum / Retroperitoneum: No ascites or free air. Bones: No significant abnormality. CT/Abdomen/Pelvis W IV Cont ONLY IMPRESSION: Sequelae of chronic pancreatitis with no CT evidence of ongoing superimposed ac vangie pancreatitis on this exam. Pancreatico-duodenal stent in place. Ancillary findings noted above. Reading Location: [id number]
[2025-05-10 21:38] LABS: Hematocrit 37.0 % (37-47); Hemoglobin 11.4 g/dL (12.0-15.0); Immature Granulocytes Count 0.120 X10^3/uL (0.0-0.0); Mean Corp Hgb Conc 30.8 g/dL (32-36); Mean Corpuscular Volume 86.7 fL (81-99); Mean Platelet Vol. 10.0 fl (6.2-12.0); NRBC Flagged by Analyzer 0 % (0-5); POSITIVE MORPHOLOGY YES; Platelet Count 305 K/mm3 (150-450); RBC Distribution Width CV 14.6 % (11.6-14.6); RBC Distribution Width SD 46.5 fl (35.1-43.9); Red Blood Count 4.27 M/mm3 (4.2-5.4); White Blood Count 16.2 K/mm3 (4.4-11.0)
[2025-05-10] MEDS: 0.9% Normal Saline (1000mL) 1,000 ML 1000 ML IV (21:44)
--- NOTE | 2025-05-10 21:51 | ED.VIS.GI ---
HPI HPI - GI History of Present Illness Chief Complaint: Abd Pain Narrative Narrative: Patient is a 60-year-old female presenting to the emergency department for abdominal pain. Patient has a past medical history of alcohol abuse, pancreatitis, alcoholic hepatitis, GERD, hypertension and history of pancreatic stent. Patient states that she developed abdominal pain today. It feels similar to her pancreatitis episodes in the past. States that she has not drink alcohol in years. She states she called her GI, Friend, who recommended that she come to the ED. She endorses mild nausea with no vomiting. Denies fever or chills. Denies any urinary symptoms including dysuria or hematuria. Denies any change in her bowels including constipation or diarrhea. States that she ran out of her pain pills at home and this is why she had to come in. [facility] Medical History (Updated 05/10/25 @ 22:57 by Ivet Kiesr) Uses walker Encounter for replacement of pancreatic stent Stenosis of left subclavian artery Pulmonary nodule Acute hypoxic respiratory failure Chronic pancreatitis Pancreatic stones HLD (hyperlipidemia) History of alcohol abuse Pneumonia Acute on chronic hypoxic respiratory failure Stage 3 severe COPD by GOLD classification Asthma COPD (chronic obstructive pulmonary disease) Arthritis History of back problems Anxiety and depression Chronic pancreatitis HPV (human papilloma virus) infection Anemia Tobacco abuse GERD (gastroesophageal reflux disease) Benign hypertension Home Medications ?Medication ?Instructions ?Recorded ?Last Taken ?Type cholecalciferol (vitamin D3) 50 50 mcg PO DAILY SUPPLEMENT 12/29/18 03/13/25 09:00 History mcg (2,000 unit) capsule 50 mcg aripiprazole 5 mg tablet (Abilify) 5 mg PO DAILY mood 01/22/21 03/13/25 09:00 History 5 mg mirtazapine 45 mg tablet 45 mg PO QHS sleep 01/16/22 03/12/25 21:00 History 45 mg metoprolol tartrate 25 mg tablet 25 mg PO BID 30 days #60 tabs 01/05/24 03/13/25 09:00 Rx 25 mg lisinopril 10 mg tablet 10 mg PO QDAY hypertension 01/26/24 03/13/25 09:00 History 10 mg albuterol sulfate 90 mcg/actuation 2 puff inhalation Q4H PRN 05/11/24 03/13/25 09:00 Rx aerosol inhaler (Ventolin HFA) shortness of breath or wheezing 2 puff #18 grams nicotine 14 mg/24 hr daily 1 patch transdermal ONCE #28 ea 12/14/24 Unknown Rx transdermal patch guaifenesin 100 mg/5 mL oral liquid 200 mg (10 mL) PO Q4H PRN 12/16/24 Unknown Rx congestion #473 mL meloxicam 7.5 mg tablet 7.5 mg PO QDAY pain 12/23/24 Unknown History ondansetron 4 mg disintegrating 4 mg PO Q6 PRN nausea/vomiting 12/23/24 Unknown History tablet Shower chair #1 ea 12/30/24 Unknown Rx ipratropium 0.5 mg-albuterol 3 mg 3 ml inhalation Q4H shortness of 01/04/25 03/13/25 09:00 Rx (2.5 mg base)/3 mL nebulization breath or wheezing #360 mL 3 mL soln ondansetron 4 mg disintegrating 4 mg PO Q8H PRN PRN Nausea #12 tabs 02/26/25 Unknown Rx tablet albuterol sulfate 2.5 mg/3 mL 2.5 mg continuous nebulization PRN 03/13/25 03/13/25 09:00 History (0.083 %) solution for nebulization COPD 2.5 mg amlodipine 5 mg tablet 5 mg PO DAILY hypertension 03/13/25 03/13/25 09:00 History 5 mg pantoprazole 40 mg tablet,delayed 40 mg PO DAILY acid reflux 03/13/25 03/13/25 09:00 History release 40 mg simvastatin 20 mg tablet 20 mg PO QHS high cholesterol 03/13/25 03/12/25 21:00 History 20 mg budesonide 160 mcg-glycopyr 9 2 inh inhalation BID #10.7 grams 04/10/25 Unknown Rx mcg-formot 4.8 mcg/actuation HFA inhaler (Breztri Aerosphere) hydroxyzine pamoate 25 mg capsule 25 mg PO QDAY PRN anxiety 04/10/25 Unknown History tramadol 50 mg tablet 50 mg PO Q6 PRN pain 04/10/25 Unknown History gabapentin 300 mg capsule 300 mg PO TID PRN pain 05/10/25 Unknown History oxycodone 5 mg tablet 5 mg PO Q8H PRN PRN pain 05/10/25 Unknown History oxycodone 5 mg tablet 5 mg PO Q8H PRN pain 3 days #12 05/10/25 Unknown Rx tabs tramadol 50 mg tablet 50 mg PO Q6H PRN pain 3 days #12 05/10/25 Unknown Rx tabs Allergy/AdvReac Type Severity Reaction Status Date / Time clindamycin Allergy Intermediate Hives Verified 05/10/25 20:34 Penicillins Allergy Hives Verified 05/10/25 20:34 sulfamethoxazole (From Allergy Other Verified 05/10/25 20:34 Bactrim) trimethoprim (From Bactrim) Allergy Other Verified 05/10/25 20:34 hydrocodone (From [place]) AdvReac Itching Verified 05/10/25 20:34 Family History Mother Diabetes Hypertension Heart disease High cholesterol Arthritis Thyroid disorder Brother Hypertension Sister Cancer cervical Thyroid disorder Father Kidney disease Daughter Thyroid disorder Surgical History History of tubal ligation History of colonoscopy History of appendectomy Social History household members: family Smoking Status: Light Smoker (<10/day) Tobacco: How many years used: 30 second hand exposure: Yes alcohol intake: former details: Sober since 2020. substance use type: does not use caffeine: Yes ROS ROS ED ROS Narrative see HPI EXAM Physical Exam Narrative Exam Narrative: Vital signs: Reviewed General: Alert and oriented. No acute distress. Chronically ill appearing. HEENT: Head is normocephalic and atraumatic, sinuses nontender, pupils equal round and reactive. Nares are patent. Oropharynx and throat exams normal. Neck: Supple without lymphadenopathy nontender Cardiovascular: Regular rate and rhythm, no murmurs. No rubs or gallops. Normal S1 and S2 Respiratory: Clear to auscultation bilaterally. Mild wheezes throughout. No rales or rhonchi. On baseline 5 L NC. Abdominal: Soft and tender to palpation in all quadrants. Normal bowel sounds. No guarding or rebound. Nonsurgical abdomen Extremities: No tenderness. No bruising. Normal range of motion. Normal sensation. Skin: No rash or redness. Neurological: Cranial nerves II through XII are grossly intact. Normal strength and sensation. Normal cerebellar function The rest of the physical exam is unremarkable Const Vital Signs: 05/10/25 20:32 05/10/25 21:56 05/10/25 22:31 Temperature 97.6 F L Temperature Source Temporal Pulse Rate 100 105 H 68 Respiratory Rate 20 H 32 H 20 H Respiratory Pattern Tachypnea Blood Pressure 120/80 121/80 H Blood Pressure Mean 93 93 Pulse Ox 90 100 Oxygen Delivery Method Nasal Cannula Nasal Cannula Oxygen Flow Rate (L/min) 4 4 MDM MDM MDM Narrative Medical decision making narrative: Patient is a 60-year-old female presenting to emergency department for abdominal pain. Patient was seen and examined. Vitals are stable. Patient resting bed comfortably no acute distress. Patient does state that the pain feels similar to her pancreatitis episodes. States that she is on chronic Oxy and tramadol for pain control. She is due to follow-up with pain management. CBC with leukocytosis of 16, on chart review it appears that she has a fairly significant leukocytosis secondary to prednisone use. Chronic anemia of 11.4. CMP with elevated alk phos of 121, chronically elevated, 113 in March. Lipase is elevated at 459. CT shows sequelae of chronic pancreatitis with no evidence of superimposed acute pancreatitis. Patient's pain was well-controlled here after morphine and Zofran. Patient states that she does get breathing treatments every 4 hours at home and is requesting one here because she is due for 1. She has mild wheezes on exam but nothing significant. This was ordered at her request. Patient reevaluated and updated on the lab and imaging findings. She states her pain is well-controlled. She thinks that if her oxy and tramadol are refilled for tomorrow she can follow-up with pain management in the next few days and have them continue to fill her prescriptions. Patient comfortable with discharge home. Only short course of oxy and tramadol sent. Patient discharged from the Emergency Department. I do not feel that the patient's evaluation reveals any acute reason for admission at this time. I instructed them to either follow-up with their primary care physician or promptly return to the Emergency Department for reevaluation should symptoms worsen or new symptoms develop. I explained what symptoms would indicate the need to return to the emergency department. Shared decision making was used. The patient voiced understanding of the treatment plan and is agreeable with it. clinical Impression: 1. Chronic pancreatitis 2. chronic pain 3. COPD History & Record Review Discussion w/independent historian: Patient Additional record(s) reviewed:: Prior ED visit Lab Data Attestation: I reviewed the patient's lab results. Labs: Laboratory Results - last 24 hr 05/10/25 05/10/25 05/10/25 20:45 20:45 21:24 WBC Cancelled 16.2 H Corrected WBC Cancelled RBC Cancelled 4.27 Hgb Cancelled 11.4 L Hct Cancelled 37.0 MCV Cancelled 86.7 MCH Cancelled 26.7 L MCHC Cancelled 30.8 L RDW Std Deviation Cancelled 46.5 H RDW Coeff of Min Cancelled 14.6 Plt Count Cancelled 305 MPV Cancelled 10.0 Immature Gran % (Auto) Cancelled 0.700 Neut % (Auto) Cancelled 63.8 Lymph % (Auto) Cancelled 21.2 Pope % (Auto) Cancelled 8.2 Eos % (Auto) Cancelled 5.1 H Baso % (Auto) Cancelled 1.0 Absolute Neuts (auto) Cancelled 10.3 H Absolute Lymphs (auto) Cancelled 3.42 Total Counted Cancelled Neutrophils % (Manual) Cancelled Band Neutrophils % Cancelled Lymphocytes % (Manual) Cancelled Monocytes % (Manual) Cancelled Eosinophils % (Manual) Cancelled Basophils % (Manual) Cancelled Metamyelocytes % Cancelled Myelocytes % Cancelled Promyelocytes % Cancelled Blast Cells % Cancelled Plasma Cell % (Manual) Cancelled Other Cells % Cancelled Nucleated RBC % Cancelled 0 Nucleated RBCs/100 WBC Cancelled Differential Comment Cancelled SCANNED Diff Path Review Cancelled Hypersegmented Neuts Cancelled Atypical Lymphocytes Cancelled Reactive Lymphocytes Cancelled Smudge Cells Cancelled Toxic Granulation Cancelled Toxic Vacuolation Cancelled Dohle Bodies Cancelled Rishabh Rods Cancelled Platelet Estimate Cancelled Plt Morphology Comment Cancelled RBC Morphology Cancelled Cancelled Polychromasia Cancelled Hypochromasia Cancelled Basophilic Stippling Cancelled Anisocytosis Cancelled Microcytosis Cancelled Macrocytosis Cancelled Spherocytes Cancelled Sickle Cells Cancelled Target Cells Cancelled Tear Drop Cells Cancelled Ovalocytes Cancelled Stomatocytes Cancelled [place] Bodies Cancelled Emerson Cells Cancelled Bite Cells Cancelled Crenated Cell Cancelled Acanthocytes (Spur) Cancelled Rouleaux Cancelled Schistocytes Cancelled Sodium 138 Potassium 4.4 Chloride 98 Carbon Dioxide 28.4 Anion Gap 12 BUN 4 Creatinine 0.67 L Estim Creat Clear Calc 72.02 Est GFR (MDRD) Non-Af 99 BUN/Creatinine Ratio 6.7 L Glucose 114 H Calcium 9.5 Total Bilirubin < 0.15 AST 16 ALT < 5 Alkaline Phosphatase 121 H Total Protein 7.4 Albumin 3.9 Globulin 3.5 Albumin/Globulin Ratio 1.1 Lipase 459 H Radiography Diagnostic Testing: Clinical Impression(s) from Imaging Studies Abdomen/Pelvis CT 05/10/25 21:35 IMPRESSION: Sequelae of chronic pancreatitis with no CT evidence of ongoing superimposed acute pancreatitis on this exam. Pancreatico-duodenal stent in place. Ancillary findings noted above. Reading Location: [id number] Discharge Plan Triage Chief Complaint: Abd Pain ED Provider: Joanne Kelly Dx/Rx/DC Orders Clinical Impression: Pancreatitis, chronic Instructions: Pancreatitis Chronic Dc Prescriptions: New oxycodone 5 mg tablet 5 mg PO Q8H PRN (Reason: pain) 3 Days Qty: 12 0RF tramadol 50 mg tablet 50 mg PO Q6H PRN (Reason: pain) 3 Days Qty: 12 0RF No Action mirtazapine 45 mg tablet 45 mg PO QHS lisinopril 10 mg tablet 10 mg PO QDAY albuterol sulfate [Ventolin HFA] 90 mcg/actuation HFA aerosol inhaler 2 puff INHALATION Q4H PRN (Reason: shortness of breath or wheezing) Qty: 18 11RF meloxicam 7.5 mg tablet 7.5 mg PO QDAY ondansetron 4 mg tablet,disintegrating 4 mg PO Q6 PRN (Reason: nausea/vomiting) tramadol 50 mg tablet 50 mg PO Q6 PRN (Reason: pain) hydroxyzine pamoate 25 mg capsule 25 mg PO QDAY PRN (Reason: anxiety) Breztri Aerosphere 160-9-4.8 mcg/actuation HFA aerosol inhaler 2 inh inhalation BID Qty: 10.7 6RF cholecalciferol (vitamin D3) 2,000 UNIT capsule 50 mcg PO DAILY aripiprazole [Abilify] 5 mg Tablet 5 mg PO DAILY metoprolol tartrate 25 mg Tablet 25 mg PO BID 30 Days Qty: 60 0RF Rx Instructions: Hold for heart less than 50 or systolic blood pressure less than 100 mmHg. albuterol sulfate 2.5 mg /3 mL (0.083 %) solution for nebulization 2.5 mg continuous nebulization PRN Patient Comments: Use 3 mL via nebulizer one time only for 1 dose. Use over 5-15minutes. amlodipine 5 mg tablet 5 mg PO DAILY pantoprazole 40 mg tablet,delayed release (DR/EC) 40 mg PO DAILY simvastatin 20 mg tablet 20 mg PO QHS gabapentin 300 mg capsule 300 mg PO TID PRN (Reason: pain) oxycodone 5 mg tablet 5 mg PO Q8H PRN PRN (Reason: pain) ondansetron 4 mg tablet,disintegrating 4 mg PO Q8H PRN PRN (Reason: Nausea) Qty: 12 0RF nicotine 14 mg/24 hr patch 24 hour 1 patch transdermal ONCE Qty: 28 1RF guaifenesin 100 mg/5 mL liquid 200 mg PO Q4H PRN (Reason: congestion) Qty: 473 0RF (DME) Shower chair See Rx Instructions .Route .MEDSUPPLY Qty: 1 0RF Rx Instructions: As directed ipratropium-albuterol 0.5 mg-3 mg(2.5 mg base)/3 mL solution for nebulization 3 ml inhalation Q4H Qty: 360 11RF Primary Care Provider: Annmarie Hay Referrals: Annmarie Hay MD [Primary Care Provider] - Friend,DO Marshal [Med Staff - Active Staff] - 2 Days Activity Restrictions/Additional Instructions: Take your pain medications as prescribed. Call pain management as planned tomorrow. Your evaluation in the Emergency Department did not reveal any acute reason for admission. However, I want to emphasize that you may be early in the course of a disease process or illness even if it is not present. For this reason you should follow-up within 24 hours for reevaluation with either your primary care physician or if necessary back here in the Emergency Department. You should return to the Emergency Department immediately if your symptoms worsen or new symptoms develop. Print Language: Tongan Disposition Disposition: Home, Self Care Discharge Date/Time: 05/10/25 23:10
[2025-05-10 21:52] LABS: Lipase 459 U/L (13-75)
[2025-05-10 21:56] VITALS: PULSE 105; RESP 32
[2025-05-10 22:16] LABS: AST(SGOT) 16 U/L (<=31); Alanine Aminotransfer ALT/SGPT < 5 U/L (<=34); Albumin, Serum 3.9 g/dL (3.4-4.8); Alkaline Phosphatase 121 U/L (35-104); Anion Gap 12 (5-15); BUN 4 mg/dL (4-19); BUN/Creat Ratio 6.7 RATIO (10-20); Calcium,Total 9.5 mg/dL (7.6-11.0); Carbon Dioxide 28.4 mmol/L (21.0-32.0); Chloride 98 mmol/L (98-108); Estimated Creatinine Clearance 72.02 ml/min (50-250); Globulin 3.5 g/dL (2.2-4.2); Glucose 114 mg/dL (70-99); Potassium 4.4 mmol/L (3.3-5.1)
[2025-05-10 22:31] VITALS: BP 121/80; PULSE 68; RESP 20; O2SAT 100
[2025-05-10 22:46] LABS: Differential Indicated SCAN CRITERIA MET
[2025-05-10 22:48] LABS: Differential Comment SCANNED
[2025-05-10 23:09] VITALS: BP 120/66; PULSE 67; RESP 16; TEMP 36.6; O2SAT 99
== END 2025-05-10 23:10 | disposition home or self-care (01) ==
PROVIDERS: Emergency Provider Student in an Organized Health Care Education/Training Program; PCP Internal Medicine; Visit Provider Student in an Organized Health Care Education/Training Program
DX: K86.1 Other chronic pancreatitis (principal); J44.9 Chronic obstructive pulmonary disease, unspecified; G89.29 Other chronic pain; I10 Essential (primary) hypertension; F17.200 Nicotine dependence, unspecified, uncomplicated; Z79.899 Other long term (current) drug therapy
CPT/HCPCS: 74177; 80053; 83690; 85025; 94640; 96361; 96374; 96375; 99283; Q9967; A4216; J2405

== ENCOUNTER 2025-05-24 19:40 | Emergency (ER) | payer MEDICAID, SELFPAY ==
[2025-05-24 19:41] VITALS: BP 200/91; PULSE 121; RESP 18; TEMP 36.6; O2SAT 93; BMI 24.0
[2025-05-24 19:54] VITALS: BP 157/93; PULSE 115; RESP 20; O2SAT 94
--- NOTE | 2025-05-24 20:54 | EDS_ITS ---
HPI HPI - GI History of Present Illness Chief Complaint: Abd Pain Informant: patient Narrative Narrative: Chronic abdominal pain with pancreatitis history. Subsequent alcohol years ago. Was seen earlier this month for pancreatitis. She has tramadol written by her PCP states only takes the edge off. Given oxycodone's which helps her more. She saw pain management today however reported placed on Cymbalta and TCA. She has not picked that up. She states she has no fevers no nausea vomiting. States is her typical daily pain and does not feel like it is flared up. She wants to have the pain dose to help her sleep tonight. Prior similar symptoms: Yes [facility] Medical History Uses walker Encounter for replacement of pancreatic stent Stenosis of left subclavian artery Pulmonary nodule Acute hypoxic respiratory failure Chronic pancreatitis Pancreatic stones HLD (hyperlipidemia) History of alcohol abuse Pneumonia Acute on chronic hypoxic respiratory failure Stage 3 severe COPD by GOLD classification Asthma COPD (chronic obstructive pulmonary disease) Arthritis History of back problems Anxiety and depression Chronic pancreatitis HPV (human papilloma virus) infection Anemia Tobacco abuse GERD (gastroesophageal reflux disease) Benign hypertension Home Medications ?Medication ?Instructions ?Recorded ?Last Taken ?Type cholecalciferol (vitamin D3) 50 50 mcg PO DAILY SUPPLE MENT 12/29/18 03/13/25 09:00 History mcg (2,000 unit) capsule 50 mcg aripiprazole 5 mg tablet (Abilify) 5 mg PO DAILY mood 01/22/21 03/13/25 09:00 History 5 mg mirtazapine 45 mg tablet 45 mg PO QHS sleep 01/16/22 03/12/25 21:00 History 45 mg metoprolol tartrate 25 mg tablet 25 mg PO BID 30 days #60 tabs 01/05/24 03/13/25 09:00 Rx 25 mg lisinopril 10 mg tablet 10 mg PO QDAY hypertension 0 01/26/24 03/13/25 09:00 History 10 mg albuterol sulfate 90 mcg/actuation 2 puff inhalation Q 4H PRN 05/11/24 03/13/25 09:00 Rx aerosol inhaler (Ventolin HFA) shortness of breath or wheezing 2 puff #18 grams nicotine 14 mg/24 hr daily 1 patch transdermal ONCE #2 8 ea 12/14/24 Unknown Rx transdermal patch ondansetron 4 mg disintegrating 4 mg PO Q6 PRN nausea/ vomiting 12/23/24 Unknown History tablet Shower chair #1 ea 12/30/24 Unknown Rx ipratropium 0.5 mg-albuterol 3 mg 3 ml inhalation Q4H shortness of 01/04/25 03/13/25 09:00 Rx (2.5 mg base)/3 mL nebulization breath or wheezing #36 0 mL 3 mL soln ondansetron 4 mg disintegrating 4 mg PO Q8H PRN PRN Na usea #12 tabs 02/26/25 Unknown Rx tablet albuterol sulfate 2.5 mg/3 mL 2.5 mg continuous nebuli zation PRN 03/13/25 03/13/25 09:00 History (0.083 %) solution for nebulization COPD 2.5 mg amlodipine 5 mg tablet 5 mg PO DAILY hypertension 0 03/13/25 03/13/25 09:00 History 5 mg pantoprazole 40 mg tablet,delayed 40 mg PO DAILY acid reflux 03/13/25 03/13/25 09:00 History release 40 mg simvastatin 20 mg tablet 20 mg PO QHS high cholestero l 03/13/25 03/12/25 21:00 History 20 mg budesonide 160 mcg-glycopyr 9 2 inh inhalation BID #10 .7 grams 04/10/25 Unknown Rx mcg-formot 4.8 mcg/actuation HFA inhaler (Breztri Aerosphere) hydroxyzine pamoate 25 mg capsule 25 mg PO QDAY PRN an xiety 04/10/25 Unknown History tramadol 50 mg tablet 50 mg PO Q6 PRN pain 5 Unknown History Allergy/AdvReac Type Severity Reaction Status Date / Time clindamycin Allergy Intermediate Hives Verified 05/24/25 19:44 Penicillins Allergy Hives Verified 05/24/25 19:44 sulfamethoxazole (From Allergy Other Verified 05/24/25 19:44 Bactrim) trimethoprim (From Bactrim) Allergy Other Verified 05/24/25 19:44 hydrocodone (From [place]) AdvReac Itching Verified 05/24/25 19:44 Family History Mother Diabetes Hypertension Heart disease High cholesterol Arthritis Thyroid disorder Brother Hypertension Sister Cancer cervical Thyroid disorder Father Kidney disease Daughter Thyroid disorder Surgical History History of tubal ligation History of colonoscopy History of appendectomy Social History household members: family Smoking Status: Current every day smoker tobacco type: cigarettes Tobacco: How many years used: 30 second hand exposure: Yes alcohol intake: former details: Sober since 2020. substance use type: does not use caffeine: Yes ROS ROS ED Constitutional Constitutional ED: Denies fever(s) Cardiovascular Cardiovascular: Denies chest pain Respiratory/Chest Respiratory/Chest: Denies cough Gastrointestinal Gastrointestinal: Reports abdominal pain; Denies diarrhea or vomiting Musculoskeletal Musculoskeletal: Denies none Integumentary Denies rash or wounds Neurologic Neurologic: Denies weakness EXAM Physical Exam Const Vital Signs: 05/24/25 19:41 05/24/25 19:54 05/24/25 20:55 Temperature 97.8 F 98 F Temperature Source Oral Pulse Rate 121 H 115 H 104 H Respiratory Rate 18 20 H 18 Blood Pressure 200/91 H 157/93 H 143/92 H Blood Pressure Mean 127 114 109 Pulse Ox 93 94 94 Oxygen Delivery Method Nasal Cannula Nasal Cannula Oxygen Flow Rate (L/min) 5 2 Positive well nourished and well developed Constitutional Narrative: Chronic oxygenation therapy. General Appearance ED: well developed and NAD HEENT Reports moist mucous membranes normocephalic and atraumatic Eyes General Eye ED: Yes normal appearance of both eyes Neck full ROM Chest Wall Chest: Negative for tenderness Resp normal respiratory effort and normal air movement Effort and Inspection: symmetric chest movement; Negative for respiratory distress Cardio regular rate, regular rhythm and no murmurs Peripheral Pulses: pulses 2+ throughout GI normal to inspection, nondistended, normoactive bowel sounds Palpation: Negative for guarding or rebound tenderness present Extremity normal to inspection General Extremety ED: Negative for edema or tenderness General Extremity: Negative for edema Neuro oriented x3 and no sensory deficits noted Sensorium / Orientation: awake and alert Skin no rashes or lesions noted and no wounds MDM MDM MDM Narrative Medical decision making narrative: Interventions / MDM: Differential diagnosis: Chronic abdominal pain, history of pancreatitis. Diagnosis considered but do not suspect: N/A My EKG interpretation: N/A Imaging independently reviewed and interpreted by myself: N/A External documents reviewed: N/A Test considered but not ordered:N/A ED course: Patient nontoxic nonsurgical abdomen. History of pancreatitis reported stopped drinking alcohol year ago. Patient here for pain does help her sleep. She does not want lab workup. OARRSalvatore report has tramadol prescription for which she confirms. She is out of her oxycodone. Will order for oxycodone ED. She will discuss with her PCP bridge medications as she is being managed also by pain management. All questions were answered. Re-evaluation: stable Disposition discussed with patient/family/significant other: Patient Case discussed with consulting clinician: N/A This note was generated with [employer] dictation software. It may contain incorrect words, spelling, and punctuation that were not noted in checking the note before signing. Discharge Plan Triage Chief Complaint: Abd Pain ED Provider: Mo Velasco Dx/Rx/DC Orders Clinical Impression: Chronic pain, Chronic pancreatitis, COPD (chronic obstructive pulmonary disease) Instructions: ED Chronic Pain Prescriptions: No Action mirtazapine 45 mg tablet 45 mg PO QHS lisinopril 10 mg tablet 10 mg PO QDAY albuterol sulfate [Ventolin HFA] 90 mcg/actuation HFA aerosol inhaler 2 puff INHALATION Q4H PRN (Reason: shortness of breath or wheezing) Qty: 18 11RF ondansetron 4 mg tablet,disintegrating 4 mg PO Q6 PRN (Reason: nausea/vomiting) tramadol 50 mg tablet 50 mg PO Q6 PRN (Reason: pain) hydroxyzine pamoate 25 mg capsule 25 mg PO QDAY PRN (Reason: anxiety) Breztri Aerosphere 160-9-4.8 mcg/actuation HFA aerosol inhaler 2 inh inhalation BID Qty: 10.7 6RF cholecalciferol (vitamin D3) 2,000 UNIT capsule 50 mcg PO DAILY aripiprazole [Abilify] 5 mg Tablet 5 mg PO DAILY metoprolol tartrate 25 mg Tablet 25 mg PO BID 30 Days Qty: 60 0RF Rx Instructions: Hold for heart less than 50 or systolic blood pressure less than 100 mmHg. albuterol sulfate 2.5 mg /3 mL (0.083 %) solution for nebulization 2.5 mg continuous nebulization PRN Patient Comments: Use 3 mL via nebulizer one time only for 1 dose. Use over 5-15minutes. amlodipine 5 mg tablet 5 mg PO DAILY pantoprazole 40 mg tablet,delayed release (DR/EC) 40 mg PO DAILY simvastatin 20 mg tablet 20 mg PO QHS ondansetron 4 mg tablet,disintegrating 4 mg PO Q8H PRN PRN (Reason: Nausea) Qty: 12 0RF nicotine 14 mg/24 hr patch 24 hour 1 patch transdermal ONCE Qty: 28 1RF (DME) Shower chair See Rx Instructions .Route .MEDSUPPLY Qty: 1 0RF Rx Instructions: As directed ipratropium-albuterol 0.5 mg-3 mg(2.5 mg base)/3 mL solution for nebulization 3 ml inhalation Q4H Qty: 360 11RF Primary Care Provider: Annmarie Hay Referrals: Annmarie Hay MD [Primary Care Provider] - Activity Restrictions/Additional Instructions: discussed with your PCP if they will bridge your pain medicines oxycodone. You are on tramadol. Take the medications prescribed by pain management. Follow-up with them. Print Language: Latvian Disposition Disposition: Home, Self Care Discharge Date/Time: 05/24/25 20:55
[2025-05-24 20:55] VITALS: BP 143/92; PULSE 104; RESP 18; TEMP 36.6; O2SAT 94
== END 2025-05-24 20:55 | disposition home or self-care (01) ==
PROVIDERS: Emergency Provider Emergency Medicine; PCP Internal Medicine; Visit Provider Emergency Medicine
DX: K86.1 Other chronic pancreatitis (principal); J44.9 Chronic obstructive pulmonary disease, unspecified; G89.29 Other chronic pain; F17.210 Nicotine dependence, cigarettes, uncomplicated
CPT/HCPCS: 80307; 99282

== ENCOUNTER → 2025-05-24 | Outpatient (CLI) | payer MEDICAID, SELFPAY ==
[2025-05-24 16:20] LABS: Barbiturate Urine NEGATIVE (< 200 ng/mL); Benzodiazepine Urine PRESUMPTIVE POSITIVE (< 200 ng/mL); PCP Urine NEGATIVE (< 25 ng/mL); THC Urine NEGATIVE (< 50 ng/mL)
== END | disposition home or self-care (01) ==
LOC: LABSPEC 15:26
PROVIDERS: PCP Internal Medicine; Referring Provider Anesthesiology; Visit Provider Anesthesiology
DX: F11.20 Opioid dependence, uncomplicated (principal)
CPT/HCPCS: 80307

== ENCOUNTER 2025-07-06 09:16 | Day surgery (SDC) | payer MEDICAID, SELFPAY ==
--- NOTE | 2025-07-04 11:56 | PAT.ANE_ITS ---
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 When Was Last Pacemaker Check QUESTION #4 FULL TEXT: You/Your Family Experience fever (hyperthermia) with Anesthesia Last Oral Intake Last Oral intake: Last Oral Intake NPO since Meds taken in AM with sips of water? 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 Female Yes 07/04/25 09:29 HX of Motion Sickness No 07/04/25 09:29 HX of N/V After Surgery No 07/04/25 09:29 Non-Smoker No 07/04/25 09:29 Duration of Surgery greater No 07/04/25 09:29 than 60 minutes Number of Risk Factors 1 07/04/25 09:29 PONV Score Low Risk 07/04/25 09:29 Height & Weight Height & Weight: Anesthesia: Height & Weight Height 5 ft 3 in 04/17/25 14:06 Respiratory Assessment Respiratory Assessment - regional truck driver: Respiratory Tract Infection Hx - regional truck driver Hx Respiratory Tract Infection No 07/04/25 09:29 STOP Sleep Apnea STOP Sleep Apnea - regional truck driver: STOP Sleep Apnea - regional truck driver Hx Hypertension Yes 07/04/25 09:29 Hx Sleep Apnea Yes 07/04/25 09:29 CPAP No 07/04/25 09:29 BIPAP Yes 07/04/25 09:29 Do you snore loudly (louder than talking or can be heard Do you often feel tired/ fatigued/ sleepy during daytime? Has anyone observed you stop breathing during sleep? STOP Results Positive 07/04/25 09:29 QUESTION #5 FULL TEXT : Do you snore loudly (louder than talking or can be heard through closed doors)? 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 Specify any problems Hx of Preganancy in last 3 No 07/04/25 09:29 Months Nurse Filling Out Transfusion JZOLLINGE 07/04/25 09:29 & Questions: Date: 07/04/25 07/04/25 09:29 Time: 09:31 07/04/25 09:29 Patient unable to answer at this time (ie. 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: /Reproductive Hx- regional truck driver Hx Now No 07/04/25 09:29 Gestational Age (in weeks): EDC: Hx Hx Para Hx Section SAB No 07/04/25 09:29 [facility] Medical History (Updated 07/04/25 @ 09:29 by Jackeline Barnes) Wears glasses Wears dentures Dietary restriction Smoker BiPAP (biphasic positive airway pressure) dependence Sleep apnea History of echocardiogram Uses walker Encounter for replacement of pancreatic stent Stenosis of left subclavian artery Pulmonary nodule Acute hypoxic respiratory failure Chronic pancreatitis Pancreatic stones HLD (hyperlipidemia) History of alcohol abuse Pneumonia Acute on chronic hypoxic respiratory failure Stage 3 severe COPD by GOLD classification Asthma COPD (chronic obstructive pulmonary disease) Arthritis History of back problems Anxiety and depression Chronic pancreatitis HPV (human papilloma virus) infection Anemia Tobacco abuse GERD (gastroesophageal reflux disease) Benign hypertension Home Medications ?Medication ?Instructions ?Recorded ?Last Taken ?Type cholecalciferol (vitamin D3) 50 50 mcg PO DAILY SUPPLE MENT 12/29/18 03/13/25 09:00 History mcg (2,000 unit) capsule 50 mcg aripiprazole 5 mg tablet (Abilify) 5 mg PO DAILY mood 01/22/21 03/13/25 09:00 History 5 mg mirtazapine 45 mg tablet 45 mg PO QHS sleep 01/16/22 03/12/25 21:00 History 45 mg metoprolol tartrate 25 mg tablet 25 mg PO BID 30 days #60 tabs 01/05/24 03/13/25 09:00 Rx 25 mg lisinopril 10 mg tablet 10 mg PO QDAY hypertension 0 01/26/24 03/13/25 09:00 History 10 mg albuterol sulfate 90 mcg/actuation 2 puff inhalation Q 4H PRN 05/11/24 03/13/25 09:00 Rx aerosol inhaler (Ventolin HFA) shortness of breath or wheezing 2 puff #18 grams nicotine 14 mg/24 hr daily 1 patch transdermal ONCE #2 8 ea 12/14/24 Unknown Rx transdermal patch ondansetron 4 mg disintegrating 4 mg PO Q6 PRN nausea/ vomiting 12/23/24 Unknown History tablet Shower chair #1 ea 12/30/24 Unknown Rx ipratropium 0.5 mg-albuterol 3 mg 3 ml inhalation Q4H shortness of 01/04/25 03/13/25 09:00 Rx (2.5 mg base)/3 mL nebulization breath or wheezing #36 0 mL 3 mL soln albuterol sulfate 2.5 mg/3 mL 2.5 mg continuous nebuli zation PRN 03/13/25 03/13/25 09:00 History (0.083 %) solution for nebulization COPD 2.5 mg amlodipine 5 mg tablet 5 mg PO DAILY hypertension 0 03/13/25 03/13/25 09:00 History 5 mg pantoprazole 40 mg tablet,delayed 40 mg PO DAILY acid reflux 03/13/25 03/13/25 09:00 History release 40 mg simvastatin 20 mg tablet 20 mg PO QHS high cholestero l 03/13/25 03/12/25 21:00 History 20 mg budesonide 160 mcg-glycopyr 9 2 inh inhalation BID #10 .7 grams 04/10/25 Unknown Rx mcg-formot 4.8 mcg/actuation HFA inhaler (Breztri Aerosphere) hydroxyzine pamoate 25 mg capsule 25 mg PO QDAY PRN an xiety 04/10/25 Unknown History tramadol 50 mg tablet 50 mg PO Q6 PRN pain 5 Unknown History OXYGEN - Supplemental ([facility] 5 l intranasal CONT 5 Unknown History INFORMATIONAL USE ONLY) Allergy/AdvReac Type Severity Reaction Status Date / Time clindamycin Allergy Intermediate Hives Verified 07/04/25 09:19 Penicillins Allergy Hives Verified 07/04/25 09:19 sulfamethoxazole (From Allergy Other Verified 07/04/25 09:19 Bactrim) trimethoprim (From Bactrim) Allergy Other Verified 07/04/25 09:19 hydrocodone (From [place]) AdvReac Itching Verified 07/04/25 09:19 Family History Mother Diabetes Hypertension Heart disease High cholesterol Arthritis Thyroid disorder Brother Hypertension Sister Cancer cervical Thyroid disorder Father Kidney disease Daughter Thyroid disorder Surgical History History of tubal ligation History of colonoscopy History of appendectomy Social History household members: family Smoking Status: Light Smoker (<10/day) Tobacco: How many years used: 30 second hand exposure: Yes alcohol intake: former details: Sober since 2020. substance use type: does not use caffeine: Yes Audit: Pertinent Findings Pertinent Findings EKG Perinent findings: 01/27/2025. Normal sinus rhythm 89 bpm. Septal infarct, age undetermined. Echo (EF%) pertinent findings: 12/05/2024. EF 70%. Trivial mitral valve insufficiency. Recommendation Anesthesia Recommendation Anesthesia recommendation: OPTIMIZED for anesthesia
--- NOTE | 2025-07-06 09:35 | PCM.PRE.AN2 ---
ASA Classification* ASA Classification ASA Classification: 3 Assessment & Plan Anesthesia* Anesthesia Assessment Anesthesia Assessment: Discussed sedation and/or anesthesia options, risks, benefits, and alternatives with patient/parents/legal guardian/POA. Questions invited. The patient/parents/legal guardian/POA seems to understand and agrees to proceed with anesthesia plan. Reviewed the physical assessment, medical history, allergy history and patient home medications list prior to surgery/procedure/anesthetic and documented any changes. Performed airway and anesthesia risk assessments. Anesthesia Type Anesthesia Type: MAC (GA bkup) Anesthesia Focused Assessment* Airway Assessment Mouth opens: >3 cm Mallampati Score: II Labs Anesthesia Preop lab: CBC WBC, (4.4-11.0) 16.2 K/mm3 H 05/10/25, 21:24 RBC, (4.2-5.4) 4.27 M/mm3 05/10/25, :24 Hgb, (12.0-15.0) 11.4 g/dL L 05/10/25, :24 Hct, (37-47) 37.0 % 05/10/25, 21:24 Plt Count, (150-450) 305 K/mm3 05/10/25, 21:24 CHEMISTRY Potassium, (3.3-5.1) 4.4 mmol/L 05/10/25, 20:45 Sodium, (133-145) 138 mmol/L 05/10/25, 20:45 Magnesium, (1.5-2.2) 1.5 mg/dL 04/15/25, 23:25 Phosphorus, (2.7-4.5) 4.4 mg/dL 04/16/25, 05:30 BUN, (4-19) 4 mg/dL 05/10/25, 20:45 Creatinine, (0.70-1.20) 0.67 mg/dL L 05/10/25, 20:45 Glucose, (70-99) 114 mg/dL H 05/10/25, 20:45 POC Glucose, (70-110) 141 mg/dL H 04/19/19, 23:12 TSH, (0.300-4.200) 1.340 uIU/mL 04/16/25, 05:30 COAG PT, (11.7-14.9) 14.5 SECONDS 01/02/24, 19:33 Pre-Assessment Diagnosis/Proposed Procedure Planned Operative Procedure(s): ERCP rem Anesthesia History 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 When Was Last Pacemaker Check QUESTION #4 FULL TEXT: You/Your Family Experience fever (hyperthermia) with Anesthesia Last Oral Intake Last Oral intake: Last Oral Intake NPO since Meds taken in AM with sips of water? 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 shop supervisor Female Yes 07/04/25 09:29 HX of Motion Sickness No 07/04/25 09:29 HX of N/V After Surgery No 07/04/25 09:29 Non-Smoker No 07/04/25 09:29 Duration of Surgery greater No 07/04/25 09:29 than 60 minutes Number of Risk Factors 1 07/04/25 09:29 PONV Score Low Risk 07/04/25 09:29 Height & Weight Height & Weight: Anesthesia: Height & Weight Height 5 ft 3 in 04/17/25 14:06 Respiratory Assessment Respiratory Assessment - relay shop supervisor: Respiratory Tract Infection Hx - relay shop supervisor Hx Respiratory Tract Infection No 07/04/25 09:29 STOP Sleep Apnea STOP Sleep Apnea - relay shop supervisor: STOP Sleep Apnea - relay shop supervisor Hx Hypertension Yes 07/04/25 09:29 Hx Sleep Apnea Yes 07/04/25 09:29 CPAP No 07/04/25 09:29 BIPAP Yes 07/04/25 09:29 Do you snore loudly (louder than talking or can be heard Do you often feel tired/ fatigued/ sleepy during daytime? Has anyone observed you stop breathing during sleep? STOP Results Positive 07/04/25 09:29 QUESTION #5 FULL TEXT : Do you snore loudly (louder than talking or can be heard through closed doors)? 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 Specify any problems Hx of Preganancy in last 3 No 07/04/25 09:29 Months Nurse Filling Out Transfusion JZOLLINGE 07/04/25 09:29 & Questions: Date: 07/04/25 07/04/25 09:29 Time: 09:31 07/04/25 09:29 Patient unable to answer at this time (ie. confused, unrespo /Reproduction History /Reproductive History - relay shop supervisor: /Reproductive Hx- relay shop supervisor Hx Now No 07/04/25 09:29 Gestational Age (in weeks): EDC: Hx Hx Para Hx Section SAB No 07/04/25 09:29 Active Medications Active Medications: Current Medications Generic Name Dose Route Start Last Admin Trade Name Freq PRN Reason Stop Dose Admin Lactated Ringer's 1,000 mls @ 15 mls/hr 07/06/25 09:30 IV .Q48H DACIA PFSH Medical History Wears glasses Wears dentures Dietary restriction Smoker BiPAP (biphasic positive airway pressure) dependence Sleep apnea History of echocardiogram Uses walker Encounter for replacement of pancreatic stent Stenosis of left subclavian artery Pulmonary nodule Acute hypoxic respiratory failure Chronic pancreatitis Pancreatic stones HLD (hyperlipidemia) History of alcohol abuse Pneumonia Acute on chronic hypoxic respiratory failure Stage 3 severe COPD by GOLD classification Asthma COPD (chronic obstructive pulmonary disease) Arthritis History of back problems Anxiety and depression Chronic pancreatitis HPV (human papilloma virus) infection Anemia Tobacco abuse GERD (gastroesophageal reflux disease) Benign hypertension Home Medications ?Medication ?Instructions ?Recorded ?Last Taken ?Type cholecalciferol (vitamin D3) 50 50 mcg PO DAILY SUPPLEMENT 12/29/18 03/13/25 09:00 History mcg (2,000 unit) capsule 50 mcg aripiprazole 5 mg tablet (Abilify) 5 mg PO DAILY mood 01/22/21 03/13/25 09:00 History 5 mg mirtazapine 45 mg tablet 45 mg PO QHS sleep 01/16/22 03/12/25 21:00 History 45 mg metoprolol tartrate 25 mg tablet 25 mg PO BID 30 days #60 tabs 01/05/24 03/13/25 09:00 Rx 25 mg lisinopril 10 mg tablet 10 mg PO QDAY hypertension 01/26/24 03/13/25 09:00 History 10 mg albuterol sulfate 90 mcg/actuation 2 puff inhalation Q4H PRN 05/11/24 03/13/25 09:00 Rx aerosol inhaler (Ventolin HFA) shortness of breath or wheezing 2 puff #18 grams nicotine 14 mg/24 hr daily 1 patch transdermal ONCE #28 ea 12/14/24 Unknown Rx transdermal patch ondansetron 4 mg disintegrating 4 mg PO Q6 PRN nausea/vomiting 12/23/24 Unknown History tablet Shower chair #1 ea 12/30/24 Unknown Rx ipratropium 0.5 mg-albuterol 3 mg 3 ml inhalation Q4H shortness of 01/04/25 03/13/25 09:00 Rx (2.5 mg base)/3 mL nebulization breath or wheezing #360 mL 3 mL soln albuterol sulfate 2.5 mg/3 mL 2.5 mg continuous nebulization PRN 03/13/25 03/13/25 09:00 History (0.083 %) solution for nebulization COPD 2.5 mg amlodipine 5 mg tablet 5 mg PO DAILY hypertension 03/13/25 03/13/25 09:00 History 5 mg pantoprazole 40 mg tablet,delayed 40 mg PO DAILY acid reflux 03/13/25 03/13/25 09:00 History release 40 mg simvastatin 20 mg tablet 20 mg PO QHS high cholesterol 03/13/25 03/12/25 21:00 History 20 mg budesonide 160 mcg-glycopyr 9 2 inh inhalation BID #10.7 grams 04/10/25 Unknown Rx mcg-formot 4.8 mcg/actuation HFA inhaler (Breztri Aerosphere) hydroxyzine pamoate 25 mg capsule 25 mg PO QDAY PRN anxiety 04/10/25 Unknown History tramadol 50 mg tablet 50 mg PO Q6 PRN pain 04/10/25 Unknown History OXYGEN - Supplemental ([facility] 5 l intranasal CONT 07/04/25 Unknown History INFORMATIONAL USE ONLY) Allergy/AdvReac Type Severity Reaction Status Date / Time clindamycin Allergy Intermediate Hives Verified 07/04/25 09:19 Penicillins Allergy Hives Verified 07/04/25 09:19 sulfamethoxazole (From Allergy Other Verified 07/04/25 09:19 Bactrim) trimethoprim (From Bactrim) Allergy Other Verified 07/04/25 09:19 hydrocodone (From [place]) AdvReac Itching Verified 07/04/25 09:19 Family History Mother Diabetes Hypertension Heart disease High cholesterol Arthritis Thyroid disorder Brother Hypertension Sister Cancer cervical Thyroid disorder Father Kidney disease Daughter Thyroid disorder Surgical History History of tubal ligation History of colonoscopy History of appendectomy Social History household members: family Smoking Status: Light Smoker (<10/day) Tobacco: How many years used: 30 second hand exposure: Yes alcohol intake: former details: Sober since 2020. substance use type: does not use caffeine: Yes Review of Systems (Anesthesia) ROS Narrative System reviewed and no additional complaints, except as documented.
[2025-07-06 09:47] VITALS: BP 137/89; PULSE 74; RESP 17; TEMP 36.5; O2SAT 100; BMI 23.6
[2025-07-06] MEDS: Lactated Ringers 1,000 ML 15 ML IV (09:59)
--- NOTE | 2025-07-06 10:30 | FLU_PTH ---
PATIENT: MIR KANG LOC: EN U#:[id number] AGE/SX: 60/F ROOM: RE07/06/[address]: Dr. Marshal Segura DO : 1965 BED: DIS: 07/06/2025 SPEC #: [id number] RECD: 07/06/25 11:53 STATUS: WAYNE RERupali #: [id number] DEB: 07/06/25 10:[address]: Marshal Segura DEPT: CYTOLOGY RECD BY: Jonh Gonzalez ENTERED: 07/06/25 13:47 SP TYPE: Fluid OTHR DR: Dr. Annmarie Hay MD Tissues: A - Pancreatic duct, NOS B - Biliary tract, NOS Procedures: Special Stain Group II Surgery Specimen Level IV Cytospin Fluid HEADER OPERATION: ERCP with stent removal, pancreatic brushings, balloon dilation PRE-OP DIAGNOSIS: History of insertion of pancreatic stent, alcohol abuse, chronic pancreatitis TISSUE SUBMITTED: A- Pancreatic stent for cytology, B- Biliary stricture of brushings / brush tip for cytology DIAGNOSIS CYTOLOGY A. Pancreatic stent, cytology: * Non-diagnostic due to insufficient cellular material * Acellular debris B. Biliary stricture brush and brush tip, cytology: * Atypical cells present (See note) Note: The cytologic features are atypical, with changes concerning for but not definitively diagnostic of a malignancy. The cytomorphology in this setting can be challenging as the presence of a biliary stent induces significant reactive epithelial atypia, which can mimic malignancy and cause interpretive challenges. Clinical and radiologic correlation is recommended. If suspicion for malignancy remains high, further investigation with repeat brushing, biopsy, or molecular analysis may be warranted. The slides are reviewed with Dr. Starr in consultation. CYTOLOGY STUDY Slides are reviewed. CYTOLOGY GROSS A. Received is 16.5 x 0.2cm black and blue flexible synthetic tube labeled with the patient's name and and designated per the requisition as Pancreatic stent. Submitted for cytology and cell block preparation. B. Received is <5 ml of clear fluid with a brush in the container and 3 slides labeled with the patient's name and and designated per the requisition as Biliary stricture brush and brush tip. Submitted for cytology and cell block preparation. Mr 07/06/2025 CPT: [id number]
--- NOTE | 2025-07-06 10:36 | PCM.HP.STD ---
HPI - General General Date of Admission: 07/06/25 Date of Service: 07/06/25 Chief Complaint: Chronic pancreatitis HPI Narrative GRACIE KANG, is a 60 F who presents [Chief Complaint: chornic pancreatits [facility] admission 3-12.12.24 due to acute on chronic hypoxic respiratory failure due to COPD exacerbation. Pt with hx of chronic pancreatitis s/p pancreatic block. GI consulted due to dysphagia. underwent EGD EGD 12.12.24; - {blood in the back of the mouth}. - Benign-appearing esophageal stenosis. Dilated. - Normal stomach. - No gross lesions in the first portion of the duodenum. - No specimens collected. OV 12.16.24; Pt has had no further issues with swallowing. She tells me she choked on eggs in the hospital. Prior to this she has had a few other episodes like this. SHe has not smoked since being home. She is in a lot of pain due her chronic pancreatitis. She has an appointment with pain management in January at the [facility] ERCP at [facility] 03.10.25 major papilla appeared normal. A pancreatic duct stricture was found, and irregularity was found in the entire opacified area of the pancreatic duct and main pancreatic duct. Pancreatic stones were found. Partial removal was accomplished. A pancreatic sphincterotomy was performed. The ventral pancreatic duct was swept. The main pancreatic duct was successfully dilated. 1 plastic pancreatic stent was placed into the ventral pancreatic duct. Recommendation for repeat ERCP in 4 months to remove stent. [facility] admission [id number] With epigastric pain. Hx of chronic pancreatitis from alcohol abuse. Pt seen by GI specialist at [facility] during recent admissions Underwent endoscopy with pancreatitis stent placement. Now presenting with worsening epigastric pain. Adept to transfer to but beds unavailable. Pt intubated 03.15.25 due to respiratory failure [facility] admission 04.16.[address] showing acute on chronic pancreatitis. Admitted for pain Control OV 04.26.25 patient here today for hospital follow-up after 2 instances of acute on chronic pancreatitis. Patient first presented to [facility] ED on March 13, 2025 2 days after ERCP with pancreatic stent placement at the [facility]. Patient presented with epigastric pain she was admitted for management of acute pancreatitis. Patient had another episode of acute on chronic pancreatitis April 16, 2025 and was admitted for management. Patient doing well today. Her pain is controlled with the tramadol alternating with Tylenol. She prefers to avoid opiates as these constipate her. She has had some looser stools since being home from the hospital. She feels this was related to gabapentin so she discontinued it. Orders Calprotectin, Stool Today K85.90 - Acute pancreatitis without necrosis or infection, unspecified, K86.0 - Alcohol-induced chronic pancreatitis, K86.1 - Other chronic pancreatitis, R19.5 - Other fecal abnormalities CDIFF (PCR) Today K85.90 - Acute pancreatitis without necrosis or infection, unspecified, K86.0 - Alcohol-induced chronic pancreatitis, K86.1 - Other chronic pancreatitis, R19.5 - Other fecal abnormalities Pancreatic Elastase, Fecal Today K85.90 - Acute pancreatitis without necrosis or infection, unspecified, K86.0 - Alcohol-induced chronic pancreatitis, K86.1 - Other chronic pancreatitis, R19.5 - Other fecal abnormalities ENTERIC PATHOGEN PANEL STOOL Today K58.9 - Irritable bowel syndrome, unspecified, K85.90 - Acute pancreatitis without necrosis or infection, unspecified, K86.0 - Alcohol-induced chronic pancreatitis, K86.1 - Other chronic pancreatitis, R19.5 - Other fecal abnormalities Giardia Lamblia, Stool EIA Today K85.90 - Acute pancreatitis without necrosis or infection, unspecified, K86.0 - Alcohol-induced chronic pancreatitis, K86.1 - Other chronic pancreatitis, R19.5 - Other fecal abnormalities Ova and Parasites 8623 Today K58.9 - Irritable bowel syndrome, unspecified, K85.90 - Acute pancreatitis without necrosis or infection, unspecified, K86.0 - Alcohol-induced chronic pancreatitis, K86.1 - Other chronic pancreatitis, R19.5 - Other fecal abnormalities Lipase Today K86.0 - Alcohol-induced chronic pancreatitis, R19.5 - Other fecal abnormalities Abdomen Single View Today Z98.890 - Other specified postprocedural states ] [facility] Medical History Wears glasses Wears dentures Dietary restriction Smoker BiPAP (biphasic positive airway pressure) dependence Sleep apnea History of echocardiogram Uses walker Encounter for replacement of pancreatic stent Stenosis of left subclavian artery Pulmonary nodule Acute hypoxic respiratory failure Chronic pancreatitis Pancreatic stones HLD (hyperlipidemia) History of alcohol abuse Pneumonia Acute on chronic hypoxic respiratory failure Stage 3 severe COPD by GOLD classification Asthma COPD (chronic obstructive pulmonary disease) Arthritis History of back problems Anxiety and depression Chronic pancreatitis HPV (human papilloma virus) infection Anemia Tobacco abuse GERD (gastroesophageal reflux disease) Benign hypertension Home Medications ?Medication ?Instructions ?Recorded ?Last Taken ?Type cholecalciferol (vitamin D3) 50 50 mcg PO DAILY SUPPLEMENT 12/29/18 03/13/25 09:00 History mcg (2,000 unit) capsule 50 mcg aripiprazole 5 mg tablet (Abilify) 5 mg PO DAILY mood 01/22/21 07/06/25 07:30 History mirtazapine 45 mg tablet 45 mg PO QHS sleep 01/16/22 03/12/25 21:00 History 45 mg metoprolol tartrate 25 mg tablet 25 mg PO BID 30 days #60 tabs 01/05/24 07/05/25 Rx lisinopril 10 mg tablet 10 mg PO QDAY hypertension 01/26/24 07/06/25 07:30 History albuterol sulfate 90 mcg/actuation 2 puff inhalation Q4H PRN 05/11/24 03/13/25 09:00 Rx aerosol inhaler (Ventolin HFA) shortness of breath or wheezing 2 puff #18 grams nicotine 14 mg/24 hr daily 1 patch transdermal ONCE #28 ea 12/14/24 Unknown Rx transdermal patch ondansetron 4 mg disintegrating 4 mg PO Q6 PRN nausea/vomiting 12/23/24 Unknown History tablet Shower chair #1 ea 12/30/24 Unknown Rx ipratropium 0.5 mg-albuterol 3 mg 3 ml inhalation Q4H shortness of 01/04/25 03/13/25 09:00 Rx (2.5 mg base)/3 mL nebulization breath or wheezing #360 mL 3 mL soln albuterol sulfate 2.5 mg/3 mL 2.5 mg continuous nebulization PRN 03/13/25 03/13/25 09:00 History (0.083 %) solution for nebulization COPD 2.5 mg amlodipine 5 mg tablet 5 mg PO DAILY hypertension 03/13/25 07/06/25 07:30 History pantoprazole 40 mg tablet,delayed 40 mg PO DAILY acid reflux 03/13/25 07/06/25 07:30 History release simvastatin 20 mg tablet 20 mg PO QHS high cholesterol 03/13/25 03/12/25 21:00 History 20 mg budesonide 160 mcg-glycopyr 9 2 inh inhalation BID #10.7 grams 04/10/25 Unknown Rx mcg-formot 4.8 mcg/actuation HFA inhaler (Breztri Aerosphere) hydroxyzine pamoate 25 mg capsule 25 mg PO QDAY PRN anxiety 04/10/25 07/06/25 07:30 History tramadol 50 mg tablet 50 mg PO Q6 PRN pain 04/10/25 Unknown History OXYGEN - Supplemental ([facility] 5 l intranasal CONT 07/04/25 Unknown History INFORMATIONAL USE ONLY) Allergy/AdvReac Type Severity Reaction Status Date / Time clindamycin Allergy Intermediate Hives Verified 07/06/25 09:43 Penicillins Allergy Hives Verified 07/06/25 09:43 sulfamethoxazole (From Allergy Other Verified 07/06/25 09:43 Bactrim) trimethoprim (From Bactrim) Allergy Other Verified 07/06/25 09:43 hydrocodone (From Carpenter) AdvReac Itching Verified 07/06/25 09:43 Family History Mother Diabetes Hypertension Heart disease High cholesterol Arthritis Thyroid disorder Brother Hypertension Sister Cancer cervical Thyroid disorder Father Kidney disease Daughter Thyroid disorder Surgical History History of tubal ligation History of colonoscopy History of appendectomy Social History household members: family Smoking Status: Light Smoker (<10/day) Tobacco: How many years used: 30 second hand exposure: Yes alcohol intake: former details: Sober since 2020. substance use type: does not use caffeine: Yes ROS Constitutional Constitutional: Denies fatigue, fever(s), poor appetite, weight gain or weight loss Gastrointestinal Gastrointestinal: Denies belching, bloating, change in bowel habits, change in stool character, chewing difficulty, coffee ground emesis, constipation, cramping, diarrhea, dyspepsia, dysphagia, early satiety, excessive flatus, fecal incontinence, heartburn, hematemesis, hematochezia, hemorrhoids, loose stools, melena, nausea, odynophagia, rectal bleeding, tenesmus, vomiting or weight changes Vital Signs Vital Signs Vital Signs: 07/06/25 09:47 07/06/25 09:47 Temperature 97.7 F L Temperature Source Temporal Pulse Rate 74 Respiratory Rate 17 Respiratory Pattern Normal Blood Pressure 137/89 H Blood Pressure Mean 105 Blood Pressure Source Monitor Blood Pressure Position Semi-Fowlers Blood Pressure Location Left Arm Pulse Ox 100 Oxygen Delivery Method Nasal Cannula Oxygen Flow Rate (L/min) 5 Weight Weight: 133 lb 6.075 oz Body Mass Index (BMI) 23.6 Physical Exam Const alert, oriented x3, no apparent distress and healthy appearing General Appearance: cooperative GI normal to inspection, nondistended, normoactive bowel sounds, soft to palpation, non-tender and non-distended Percussion: normal to percussion Rectal Exam: deferred Assessment & Plan Assessment/Plan (1) History of insertion of pancreatic stent: (2) Alcohol abuse: (3) Chronic pancreatitis: QUALIFIERS: Pancreatitis type: alcohol induced Qualified Code(s): K86.0 - Alcohol-induced chronic pancreatitis PLAN: Assessment and Plan Assessment and Plan (1) Chronic pancreatitis: Status: Chronic Qualifiers: Pancreatitis type: alcohol induced Qualified Code(s): K86.0 - Alcohol-induced chronic pancreatitis Plan: Gracie is a 59-year-old female patient with past medical history of alcohol abuse, tobacco abuse, COPD and chronic pancreatitis here today for hospital follow-up. Over the past 2 months patient has had 2 admissions to [facility] for acute on chronic pancreatitis. Patient underwent ERCP with pancreatic stent placement and stone removal in February 2025 at the [facility]. Following this procedure she presented to [facility] ED with an elevated lipase and was diagnosed with post ERCP acute on chronic pancreatitis. She was admitted for management and subsequently developed respiratory failure and was intubated in the ICU. Patient responded to treatment and is eventually extubated and discharged home. She again presented to [facility] ED April 16 with epigastric pain and elevated lipase. She was admitted for management of acute on chronic pancreatitis once again. Per ERCP report from Dr. Portillo at the [facility], she will need to undergo repeat ERCP in 4 months for removal of pancreatic stent. She would prefer to keep her care in [place] as traveling to [place] is difficult. She was scheduled for repeat ERCP in June 2022 5 with stent removal. I have ordered a KUB to ensure pancreatic stent is still in place. I have also ordered lipase for monitoring. Patient endorses loose stools since being in the hospital she feels this is related to her gabapentin. It did improve after discontinuation of gabapentin. Will order stool testing to rule out infection inflammation or EPI. At this point pain is controlled with tramadol alternating with Tylenol, and PCP is managing these medications. She has referral to see pain management and was started I encouraged her to call to make this appointment. Encouraged smoking cessation and abstinence from alcohol. - ERCP in 3 months with pancreatic stent removal - KUB - Repeat lipase -Stool testing for infection inflammation and EPI -see pain management (2) Loose stools: Status: Acute (3) History of insertion of pancreatic stent: Status: Acute Orders:
--- NOTE | 2025-07-06 11:25 | RAD_ITS ---
PROCEDURE: ERCP BILIARY/PANCREAS; O.R. FLUORO FOR C-ARM 07/06/2025 REASON FOR EXAM: ERCP TECHNIQUE: Procedure Code: RADERCP; RADORFL_C_ARM Modality: DX Procedure: ERCP BILIARY/PANCREAS; O.R. FLUORO FOR C-ARM. Fluoroscopy time: 121.1 seconds. Dose: 39.70 mGy. COMPARISON: None. RAD/O.R. Fluoro for C-Arm IMPRESSION: Intraoperative fluoroscopy was performed for ERCP. 10 fluoroscopic images were also obtained. Reading Location: [place] [id number]
--- NOTE | 2025-07-06 11:25 | RAD_ITS ---
PROCEDURE: ERCP BILIARY/PANCREAS; O.R. FLUORO FOR C-ARM 07/06/2025 REASON FOR EXAM: ERCP TECHNIQUE: Procedure Code: RADERCP; RADORFL_C_ARM Modality: DX Procedure: ERCP BILIARY/PANCREAS; O.R. FLUORO FOR C-ARM. Fluoroscopy time: 121.1 seconds. Dose: 39.70 mGy. COMPARISON: None. RAD/ERCP Biliary/Pancreas IMPRESSION: Intraoperative fluoroscopy was performed for ERCP. 10 fluoroscopic images were also obtained. Reading Location: [place] [address]
[2025-07-06 11:55] VITALS: BP 137/89; BP 142/74; PULSE 98; RESP 19; TEMP 36.1; O2SAT 95
--- NOTE | 2025-07-06 11:58 | OP.PROVAT_ITS ---
07/06/2025 Annmarie Hay [address] [place] [address] Re : ERCP procedure for Gracie Banuelos Dear Dr. Hay This procedure was performed on June. My impressions and recommendations are as follows: Impressions : - A single segmental biliary stricture was found in the lower third of the main bile duct. The stricture was indeterminate. - The lower third of the main bile duct was dilated, uncertain etiology. - The patient has had a cholecystectomy. - Choledocholithiasis was found. Complete removal was accomplished by biliary sphincterotomy and balloon extraction. - Pancreatic stones were found. Complete removal was accomplished. - One stent was removed from the pancreatic duct. - A pancreatic sphincterotomy was performed. - The ventral pancreatic duct was swept. - A biliary sphincterotomy was performed. - The biliary tree was swept. - One temporary stent was placed into the common bile duct. - Cells for cytology obtained in the lower third of the main duct. Recommendations : My findings are described in the full procedure note, which is enclosed. If I can be of further assistance, please feel free to contact me at . Sincerely, Marshal Segura DO 07/06/2025 11:58:09 AM This report has been signed electronically.
--- NOTE | 2025-07-06 11:58 | OP.ERCP_ITS ---
Patient Name: Gracie Banuelos Procedure Date: 07/06/2025 11:05 AM Date of : 1965 Age: 60 Procedure: ERCP Indications: Abdominal pain of suspected biliary or pancreatic origin, Pancreatic stent removal Providers: Marshal Segura DO Referring MD: Annmarie Hay Medicines: Monitored Anesthesia Care Patient Profile: This is a 60 year old female. Refer to note in patient chart for documentation of history and physical. Patient has symptoms of chronic right upper quadrant abdominal pain, chronic jaundice and acute nausea. Her most recent ERCP for pancreatic evaluation and ERCP for stent was within the past three months. Complications: No immediate complications. Procedure: Pre-Anesthesia Assessment: - Prior to the procedure, a History and Physical was performed, and patient medications and allergies were reviewed. The patient is competent. The risks and benefits of the procedure and the sedation options and risks were discussed with the patient. All questions were answered and informed consent was obtained. Patient identification and proposed procedure were verified by the physician in the pre-procedure area. Mental Status Examination: alert and oriented. Airway Examination: normal oropharyngeal airway and neck mobility. Respiratory Examination: clear to auscultation. CV Examination: normal. Prophylactic Antibiotics: The patient does not require prophylactic antibiotics. Prior Anticoagulants: The patient has taken no anticoagulant or antiplatelet agents. ASA Grade Assessment: III - A patient with severe systemic disease. After reviewing the risks and benefits, the patient was deemed in satisfactory condition to undergo the procedure. The anesthesia plan was to use monitored anesthesia care (MAC). Immediately prior to administration of medications, the patient was re-assessed for adequacy to receive sedatives. The heart rate, respiratory rate, oxygen saturations, blood pressure, adequacy of pulmonary ventilation, and response to care were monitored throughout the procedure. The physical status of the patient was re-assessed after the procedure. After obtaining informed consent, the scope was passed under direct vision. Throughout the procedure, the patient's blood pressure, pulse, and oxygen saturations were monitored continuously. The Duodenoscope was introduced through the mouth, and advanced to the duodenum and used to inject contrast into the bile duct and ventral pancreatic duct. The ERCP was accomplished without difficulty. The patient tolerated the procedure well. Scope In: 11:20:33 AM Scope Out: 11:44:06 AM Total Procedure Duration Time 0 hours 23 minutes 33 seconds Findings: The graphics specialist film was normal. A pancreatic stent was visible on the graphics specialist film. One stent was removed from the pancreatic duct using a snare and sent for cytology. The stent was found to be partially occluded via the water column test. The ventral pancreatic duct was deeply cannulated with the short-nosed traction sphincterotome. Contrast was injected. I personally interpreted the pancreatic duct images. Ductal flow of contrast was adequate. Image quality was suboptimal. Contrast extended to the pancreatic duct. Opacification of the entire pancreatic ductal system was successful. The maximum diameter of the ducts was 4 mm. The entire opacified area was normal. A long 0.025 inch Jagwire was passed into the ventral pancreatic duct. A 5 mm ventral pancreatic sphincterotomy was made with a traction (standard) sphincterotome using ERBE electrocautery. There was no post-sphincterotomy bleeding. To find object(s) the ventral pancreatic duct was swept with a 6 mm balloon starting at the pancreatic duct in the body of the pancreas. All stones were removed. All stones were removed. The bile duct was deeply cannulated with the short-nosed traction sphincterotome. Contrast was injected. Opacification of the entire opacified area and entire biliary tree was successful. The maximum diameter of the ducts was 10 mm. The lower third of the main bile duct contained a single segmental stenosis 6 mm in length. The lower third of the main bile duct was diffusely dilated, uncertain etiology. The largest diameter was 12 mm. A cholecystectomy had been performed. A long 0.025 inch Jagwire was passed into the biliary tree. A 5 mm biliary sphincterotomy was made with a traction (standard) sphincterotome using ERBE electrocautery. There was no post-sphincterotomy bleeding. The biliary tree was swept with a 12 mm balloon starting at the upper third of the main bile duct, middle third of the main bile duct, lower third of the main duct, bifurcation, right intrahepatic duct(s) and right main hepatic duct. Sludge was swept from the duct. All stones were removed. One 10 Fr by 7 cm temporary stent was placed 5 cm into the common bile duct. Bile flowed through the stent. The stent was in good position. Cells for cytology were obtained by brushing in the lower third of the main bile duct. Impression: - A single segmental biliary stricture was found in the lower third of the main bile duct. The stricture was indeterminate. - The lower third of the main bile duct was dilated, uncertain etiology. - The patient has had a cholecystectomy. - Choledocholithiasis was found. Complete removal was accomplished by biliary sphincterotomy and balloon extraction. - Pancreatic stones were found. Complete removal was accomplished. - One stent was removed from the pancreatic duct. - A pancreatic sphincterotomy was performed. - The ventral pancreatic duct was swept. - A biliary sphincterotomy was performed. - The biliary tree was swept. - One temporary stent was placed into the common bile duct. - Cells for cytology obtained in the lower third of the main duct. Procedure Code(s): --- Professional --- 82318, Endoscopic retrograde cholangiopancreatography (ERCP); with placement of endoscopic stent into biliary or pancreatic duct, including pre- and post-dilation and guide wire passage, when performed, including sphincterotomy, when performed, each stent 84995, 59,51, Endoscopic retrograde cholangiopancreatography (ERCP); with removal of foreign body(s) or stent(s) from biliary/pancreatic duct(s) 14647, Endoscopic retrograde cholangiopancreatography (ERCP); with removal of calculi/debris from biliary/pancreatic duct(s) 05341, 59, Endoscopic retrograde cholangiopancreatography (ERCP); with sphincterotomy/papillotomy 41149, 26, Endoscopic catheterization of the pancreatic ductal system, radiological supervision and interpretation CPT copyright 2021 [employer]. All rights reserved. The codes documented in this report are preliminary and upon semiconductor testing group leader review may be revised to meet current compliance requirements. Marshal Segura DO 07/06/2025 11:58:09 AM This report has been signed electronically. Number of Addenda: 0 Note Initiated On: 07/06/2025 11:05 AM
--- NOTE | 2025-07-06 11:59 | PCM.POST.ANE ---
Anesthesia: Postop Eval I Current Vital Signs Temperature: 97 F Pulse Rate: 88 Blood Pressure: 142/74 Respiratory Rate: 16 Pulse Ox: 98 Oxygen Delivery Method: Room Air Assessment Airway patent: Yes Spontaneous unlabored respirations: Yes Mental status: Asleep nausea: No Vomiting: No Anesthesia Complication: No Fluid Hydration Crystalloid volume administer (ml): 900 Total IV fluid infused: 900 Progress Note Anesthesia document: Postop Eval 1 completed: Yes
[2025-07-06 12:00] VITALS: BP 137/89; BP 142/74; BP 153/81; PULSE 88; RESP 16; RESP 18; TEMP 36.1; O2SAT 98
[2025-07-06 12:05] VITALS: BP 137/89; BP 156/96; PULSE 97; RESP 18; O2SAT 97
[2025-07-06 12:15] VITALS: BP 137/89; BP 176/75; PULSE 86; RESP 19; TEMP 36.1; O2SAT 95
--- NOTE | 2025-07-06 12:32 | PCM.POSTANE2 ---
Anesthesia Postop Eval I Sum Postop Eval Completion status Anesthesia document: Postop Eval 1 completed: Yes Anesthesia Postop Eval I Summary Anesthesia Postop Eval I Summary: Anesthesia Postop Eval I: Assessment Summary Airway patent Yes 07/06/25 12:00 [email or web address] Spontaneous unlabored Yes 07/06/25 12:00 [email or web address] respirations Mental status Asleep 07/06/25 12:00 [email or web address] nausea No 07/06/25 12:00 [email or web address] Vomiting No 07/06/25 12:00 [email or web address] Anesthesia Postop Eval I: Fluid Summary Crystalloid volume administer 900 07/06/25 12:00 [email or web address] (ml) Colloids volume administered ( ml) Blood Product volume administered (ml) Total IV fluid infused 900 07/06/25 12:00 [email or web address] Anesthesia Postop Eval I: Summary Notes Anesthesia Complication No 07/06/25 12:00 [email or web address] Anesthesia Complication Comment: Post-operative progress note Anesthesia: Postop Eval II Evaluation Mental status: Awake Pain Level: 0 nausea: No Vomiting: No
[2025-07-06 12:59] VITALS: BP 137/89
== END 2025-07-06 13:02 | disposition home or self-care (01) ==
LOC: EN 09:17 → AC 09:19
PROVIDERS: PCP Internal Medicine; Referring Provider Internal Medicine; Visit Provider Internal Medicine Gastroenterology
PROC: (CPT 43260; principal; 2025-07-06 10:10)
DX: K86.0 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 chronic pancreatitis (principal); J44.89 Other specified chronic obstructive pulmonary disease; F10.10 Alcohol abuse, uncomplicated; K80.51 Calculus of bile duct without cholangitis or cholecystitis with obstruction; E78.5 Hyperlipidemia, unspecified; K21.9 Gastro-esophageal reflux disease without esophagitis; I10 Essential (primary) hypertension; F17.200 Nicotine dependence, unspecified, uncomplicated; K52.9 Noninfective gastroenteritis and colitis, unspecified; K59.00 Constipation, unspecified; D72.829 Elevated white blood cell count, unspecified; Z98.51 Tubal ligation status; Z99.89 Dependence on other enabling machines and devices; G47.30 Sleep apnea, unspecified; Z99.81 Dependence on supplemental oxygen; F41.8 Other specified anxiety disorders; Z79.899 Other long term (current) drug therapy; Z79.51 Long term (current) use of inhaled steroids; Z90.49 Acquired absence of other specified parts of digestive tract; K86.89 Other specified diseases of pancreas
CPT/HCPCS: 43276; 43264; 74177; 74330; 76000; 80053; 83690; 85025; 88108; 88305; 88313; 93005; C2625; Q9967; J2405

== ENCOUNTER 2025-07-06 19:40 | Emergency (ER) | payer MEDICAID, SELFPAY ==
[2025-07-06 19:41] VITALS: BP 112/89; PULSE 122; RESP 20; TEMP 36.8; O2SAT 91; BMI 22.8
[2025-07-06 20:23] VITALS: BP 149/80; BP 165/83; PULSE 78; PULSE 95; RESP 16; TEMP 37; O2SAT 98; O2SAT 99
[2025-07-06 20:32] LABS: Hematocrit 39.3 % (37-47); Hemoglobin 12.2 g/dL (12.0-15.0); Immature Granulocytes Count 0.100 X10^3/uL (0.0-0.0); Mean Corp Hgb Conc 31.0 g/dL (32-36); Mean Corpuscular Volume 85.4 fL (81-99); Mean Platelet Vol. 10.5 fl (6.2-12.0); NRBC Flagged by Analyzer 0 % (0-5); POSITIVE DIFFERENTIAL YES; POSITIVE MORPHOLOGY YES; Platelet Count 388 K/mm3 (150-450); RBC Distribution Width CV 13.6 % (11.6-14.6); RBC Distribution Width SD 42.5 fl (35.1-43.9); Red Blood Count 4.60 M/mm3 (4.2-5.4); White Blood Count 18.4 K/mm3 (4.4-11.0)
[2025-07-06 20:33] LABS: Differential Indicated SCAN CRITERIA MET
[2025-07-06 20:51] LABS: AST(SGOT) 24 U/L (<=31); Alanine Aminotransfer ALT/SGPT 10 U/L (<=34); Albumin, Serum 4.3 g/dL (3.4-4.8); Alkaline Phosphatase 151 U/L (35-104); Anion Gap 15 (5-15); BUN 6 mg/dL (4-19); BUN/Creat Ratio 8.0 RATIO (10-20); Calcium,Total 9.0 mg/dL (7.6-11.0); Carbon Dioxide 28.7 mmol/L (21.0-32.0); Chloride 88 mmol/L (98-108); Estimated Creatinine Clearance 61.08 ml/min (50-250); Globulin 3.8 g/dL (2.2-4.2); Glucose 254 mg/dL (70-99); Lipase 83 U/L (13-75); Potassium 3.9 mmol/L (3.3-5.1)
[2025-07-06 21:48] LABS: Differential Comment SCANNED
[2025-07-06] MEDS: 0.9% Normal Saline (1000mL) 1,000 ML 1000 ML IV (22:09)
[2025-07-06 22:11] VITALS: BP 165/83; PULSE 95; RESP 16; O2SAT 100
[2025-07-06 22:15] VITALS: BP 183/92; PULSE 100; RESP 16; TEMP 36.7; O2SAT 100
--- NOTE | 2025-07-06 22:55 | CT_ITS ---
PROCEDURE: ABDOMEN/PELVIS W IV CONT ONLY 07/06/2025 REASON FOR EXAM: ABDOMINAL PAIN, LEUKOCYTOSIS, TECHNIQUE: Procedure Code: CTABDPELIV Modality: CT Procedure: ABDOMEN/PELVIS W IV CONT ONLY Coronal and Sagittal reconstruction series were provided. CONTRAST: VOLUME: mL One or more dose reduction techniques were used (e.g., Automated exposure control, adjustment of the mA and/or kV according to patient size, use of iterative reconstruction technique. COMPARISON: 05/10/2025. FINDINGS: Curvilinear densities in the extreme right lung base likely represent scarring and/or subsegmental atelectasis. Otherwise the visualized lung bases are clear. Mild intrahepatic pneumobilia, new since the previous study. Subcentimeter low- density within the right lobe of the liver, unchanged and likely a cyst. Calcifications within the head and uncinate process of the pancreas are unchanged from the previous study and compatible with chronic pancreatitis. The spleen, adrenal glands, kidneys, and urinary bladder appear unremarkable. Cholecystectomy. A CBD stent is in place. Moderate amount of stool within the right side of the colon. No evidence of a bowel obstruction. Mild mucosal thickening of the sigmoid colon is concerning for mild colitis.. The appendix is not clearly visualized. No inflammatory changes in the pericecal region. The appendix may be surgically absent. No intraperitoneal free air or free fluid. Moderate atherosclerotic calcifications. No abdominal nor pelvic lymphadenopathy. No acute osseous abnormality. No acute fracture. CT/Abdomen/Pelvis W IV Cont ONLY IMPRESSION: 1. Mild intrahepatic pneumobilia and a CBD stent, both of which are new since the previous study. On the prior study, a pancreatic duct stent was in place, which is no longer present. 2. Mild mucosal thickening of the sigmoid colon, similar to the previous study and concerning for mild colitis. 3. Moderate amount of stool within the right side of the colon. 4. Findings consistent with chronic pancreatitis, unchanged. Reading Location: [id number]
[2025-07-07] VITALS: BP 143/66; PULSE 70; RESP 14; O2SAT 98
--- NOTE | 2025-07-07 01:06 | EDS_ITS ---
HPI History of Present Illness Chief Complaint: Abd Pain Detail of Chief Complaint: Lower quadrant abdominal pain Informant: patient Onset/Context/Timing Onset: Today and Hours Context: Sudden Onset Timing: Continuous Quality: Lower abdominal pain greater left than right. Location: Pain LLQ and RLQ Current Severity: Mild Maximum Severity: Moderate Worsened by: Palpation Relieved by: Nothing Associated Symptoms Associated Symptoms: Nausea Narrative Narrative: Patient is a 60-year-old woman with history of alcoholic liver disease, chronic pancreatitis, COPD, who underwent an upper GI endoscopy procedure on July 06. She apparently had a stent removed. The procedure note was not completed by Dr. Segura and not available for review. She presents because of lower abdominal pain left side greater than right. She does complain of nausea without vomiting. Denies diarrhea, constipation, black or maroon stool. She denies blood or mucus in her stool. She denies fever or chills. She does complain of mild distention. She denies urologic symptoms. She denies back pain. She denies rash. Prior similar symptoms: Yes Recent Illness/Hospitalization: Yes PFSH PFS Medical History Wears glasses Wears dentures Dietary restriction Smoker BiPAP (biphasic positive airway pressure) dependence Sleep apnea History of echocardiogram Uses walker Encounter for replacement of pancreatic stent Stenosis of left subclavian artery Pulmonary nodule Acute hypoxic respiratory failure Chronic pancreatitis Pancreatic stones HLD (hyperlipidemia) History of alcohol abuse Pneumonia Acute on chronic hypoxic respiratory failure Stage 3 severe COPD by GOLD classification Asthma COPD (chronic obstructive pulmonary disease) Arthritis History of back problems Anxiety and depression Chronic pancreatitis HPV (human papilloma virus) infection Anemia Tobacco abuse GERD (gastroesophageal reflux disease) Benign hypertension Home Medications ?Medication ?Instructions ?Recorded ?Last Taken ?Type cholecalciferol (vitamin D3) 50 50 mcg PO DAILY SUPPLE MENT 12/29/18 03/13/25 09:00 History mcg (2,000 unit) capsule 50 mcg aripiprazole 5 mg tablet (Abilify) 5 mg PO DAILY mood 01/22/21 07/06/25 07:30 History mirtazapine 45 mg tablet 45 mg PO QHS sleep 01/16/22 03/12/25 21:00 History 45 mg metoprolol tartrate 25 mg tablet 25 mg PO BID 30 days #60 tabs 01/05/24 07/05/25 Rx lisinopril 10 mg tablet 10 mg PO QDAY hypertension 0 01/26/24 07/06/25 07:30 History albuterol sulfate 90 mcg/actuation 2 puff inhalation Q 4H PRN 05/11/24 03/13/25 09:00 Rx aerosol inhaler (Ventolin HFA) shortness of breath or wheezing 2 puff #18 grams nicotine 14 mg/24 hr daily 1 patch transdermal ONCE #2 8 ea 12/14/24 Unknown Rx transdermal patch ondansetron 4 mg disintegrating 4 mg PO Q6 PRN nausea/ vomiting 12/23/24 Unknown History tablet Shower chair #1 ea 12/30/24 Unknown Rx ipratropium 0.5 mg-albuterol 3 mg 3 ml inhalation Q4H shortness of 01/04/25 03/13/25 09:00 Rx (2.5 mg base)/3 mL nebulization breath or wheezing #36 0 mL 3 mL soln albuterol sulfate 2.5 mg/3 mL 2.5 mg continuous nebuli zation PRN 03/13/25 03/13/25 09:00 History (0.083 %) solution for nebulization COPD 2.5 mg amlodipine 5 mg tablet 5 mg PO DAILY hypertension 0 03/13/25 07/06/25 07:30 History pantoprazole 40 mg tablet,delayed 40 mg PO DAILY acid reflux 03/13/25 07/06/25 07:30 History release simvastatin 20 mg tablet 20 mg PO QHS high cholestero l 03/13/25 03/12/25 21:00 History 20 mg budesonide 160 mcg-glycopyr 9 2 inh inhalation BID #10 .7 grams 04/10/25 Unknown Rx mcg-formot 4.8 mcg/actuation HFA inhaler (Breztri Aerosphere) hydroxyzine pamoate 25 mg capsule 25 mg PO QDAY PRN an xiety 04/10/25 07/06/25 07:30 History tramadol 50 mg tablet 50 mg PO Q6 PRN pain 5 Unknown History OXYGEN - Supplemental (H 5 l intranasal CONT 5 Unknown History INFORMATIONAL USE ONLY) tramadol 100 mg tablet 100 mg PO BID PRN pain 20 da ys #40 07/06/25 Unknown Rx tabs ciprofloxacin HCl 500 mg tablet 500 mg PO BID #14 TABL ETS 07/07/25 Unknown Rx metronidazole 500 mg tablet 500 mg PO Q8H #21 tabs 07/22 Unknown Rx tramadol 50 mg tablet 50 mg PO Q8H PRN pain 3 days #7 07/07/25 Unknown Rx tabs Allergy/AdvReac Type Severity Reaction Status Date / Time clindamycin Allergy Intermediate Hives Verified 07/06/25 19:43 Penicillins Allergy Hives Verified 07/06/25 19:43 sulfamethoxazole (From Allergy Other Verified 07/06/25 19:43 Bactrim) trimethoprim (From Bactrim) Allergy Other Verified 07/06/25 19:43 hydrocodone (From [place]) AdvReac Itching Verified 07/06/25 19:43 Family History Mother Diabetes Hypertension Heart disease High cholesterol Arthritis Thyroid disorder Brother Hypertension Sister Cancer cervical Thyroid disorder Father Kidney disease Daughter Thyroid disorder Surgical History History of tubal ligation History of colonoscopy History of appendectomy Social History household members: family Smoking Status: Light Smoker (<10/day) Tobacco: How many years used: 30 second hand exposure: Yes alcohol intake: former details: Sober since 2020. substance use type: does not use caffeine: Yes ROS ROS ED Constitutional Constitutional ED: Denies chills, fever(s), subjective or sweats Eyes Eyes: Denies blurry vision or change in vision ENT ENT ED: Denies ear pain or rhinorrhea Cardiovascular Cardiovascular: Denies chest pain, orthopnea, palpitations, paroxysmal nocturnal dyspnea or racing heartbeat Respiratory/Chest Respiratory/Chest: Denies cough, dyspnea, dyspnea on exertion, orthopnea or paroxysmal nocturnal dyspnea Gastrointestinal Gastrointestinal: Reports abdominal pain and nausea; Denies constipation, diarrhea, melena or vomiting Genitourinary Genitourinary ED: Denies dysuria, hematuria or urinary frequency Musculoskeletal Musculoskeletal: Denies arthralgias, back pain or myalgias Integumentary Denies abscess, Abrasions or rash Neurologic Neurologic: Denies paresthesias or weakness Hematologic/Lymphatic Hematologic/Lymphatic: Reports systems reviewed and no addt'l complaints, except as documented EXAM Physical Exam Const Vital Signs: 07/06/25 19:41 07/06/25 20:23 07/06/25 20:23 Temperature 98.2 F 98.6 F Temperature Source Oral Oral Pulse Rate 122 H 95 78 Respiratory Rate 20 H 16 16 Blood Pressure 112/89 H 165/83 H 149/80 H Blood Pressure Mean 96 110 103 Pulse Ox 91 99 98 Oxygen Delivery Method Nasal Cannula Room Air Nasal Cannula Oxygen Flow Rate (L/min) 5 5 07/06/25 22:11 07/06/25 22:15 Temperature 98.1 F Temperature Source Oral Pulse Rate 95 100 Respiratory Rate 16 16 Blood Pressure 165/83 H 183/92 H Blood Pressure Mean 110 122 Pulse Ox 100 100 Oxygen Delivery Method Nasal Cannula Nasal Cannula Oxygen Flow Rate (L/min) 5 5 Positive well nourished and well developed Constitutional Narrative: Patient appears slightly uncomfortable. Vital signs are marked for tachycardia. General Appearance ED: well developed; Negative for cyanotic, diaphoretic or pallor HEENT Reports moist mucous membranes HEENT Narrative: Head is atraumatic and normocephalic. Ears normal. Nares patent. Eyes PERRL and EOMs intact bilaterally General Eye ED: Negative for pale conjunctiva or scleral icterus Neck no lymphadenopathy, supple and no JVD Resp normal respiratory effort and clear to auscultation bilaterally Cardio regular rate, regular rhythm, S1 normal heart sound, S2 normal heart sound and no murmurs GI no masses; Negative for non-tender, non-distended or hepatosplenomegaly Inspection: abdominal distention Auscultation: hypoactive bowel sounds Palpation: soft, tender LLQ and RLQ and guarding LLQ; Negative for splenomegaly, mass or rebound tenderness present Back/Spine no CVA tenderness Extremity normal to inspection General Extremety ED: Negative for edema or tenderness General Extremity: Negative for edema Neuro oriented x3 and CN's II-XII intact bilaterally Sensorium / Orientation: alert Motor Exam: strength 5/5 throughout Psych mental status grossly normal Skin no rashes or lesions noted, no wounds and skin turgor normal Skin Narrative: Patient has dry skin. General Skin Exam: Negative for jaundice or pallor MDM MDM MDM Narrative Medical decision making narrative: With recent procedure where stent was removed need to entertain possibility of exacerbation chronic pancreatitis, infectious process, abdominal pain of unknown etiology, pneumoperitoneum. Will obtain initially blood work and reassess. Lab Data Attestation: I reviewed the patient's lab results. Lab results narrative: White count is elevated 18.4 thousand with slight shift. H&H is unremarkable. Comprehensive metabolic panel is remarkable elevated glucose of 254 with a normal CO2 anion gap. Lipase is slightly elevated 83. Labs: Laboratory Results - last 24 hr 07/06/25 19:59 WBC 18.4 H RBC 4.60 Hgb 12.2 Hct 39.3 MCV 85.4 MCH 26.5 L MCHC 31.0 L RDW Std Deviation 42.5 RDW Coeff of Min 13.6 Plt Count 388 MPV 10.5 Immature Gran % (Auto) 0.500 Neut % (Auto) 72.3 H Lymph % (Auto) 7.4 L Ritchie % (Auto) 1.1 Eos % (Auto) 18.3 H Baso % (Auto) 0.4 Absolute Neuts (auto) 13.3 H Absolute Lymphs (auto) 1.36 Nucleated RBC % 0 Differential Comment SCANNED Platelet Estimate ADEQUATE Sodium 132 L Potassium 3.9 Chloride 88 L Carbon Dioxide 28.7 Anion Gap 15 BUN 6 Creatinine 0.79 Estim Creat Clear Calc 61.08 Est GFR (MDRD) Non-Af 85 BUN/Creatinine Ratio 8.0 L Glucose 254 H Calcium 9.0 Total Bilirubin 0.18 AST 24 ALT 10 Alkaline Phosphatase 151 H Total Protein 8.1 Albumin 4.3 Globulin 3.8 Albumin/Globulin Ratio 1.1 Lipase 83 H Radiography Diagnostic Testing: Clinical Impression(s) from Imaging Studies Abdomen/Pelvis CT 07/06/25 22:55 IMPRESSION: 1. Mild intrahepatic pneumobilia and a CBD stent, both of which are new since the previous study. On the prior study, a pancreatic duct stent was in place, which is no longer present. 2. Mild mucosal thickening of the sigmoid colon, similar to the previous study and concerning for mild colitis. 3. Moderate amount of stool within the right side of the colon. 4. Findings consistent with chronic pancreatitis, unchanged. Reading Location: [facility] Treatment and Re-Evaluation :: Because of persistent pain and leukocytosis CT was obtained. CT reveals mild intrahepatic pneumo biliary and CBD stent which are new from prior study. There is also mucosal thickening in the sigmoid colon consistent with mild colitis. She has increased stool burden in the right side. There is also evidence of chronic pancreatitis. In light of these findings and her numerous allergies she was treated with ciprofloxacin and metronidazole. She was prescribed tramadol for pain since she has received tramadol in the past without reaction. Discharge Plan Triage Chief Complaint: Abd Pain ED Provider: Edmund Tang Dx/Rx/DC Orders Clinical Impression: Colitis, Leukocytosis, Chronic pancreatitis, COPD (chronic obstructive pulmonary disease), GERD (gastroesophageal reflux disease), Obstipation Instructions: Colitis Prescriptions: New metronidazole 500 mg tablet 500 mg PO Q8H Qty: 21 0RF ciprofloxacin HCl 500 mg tablet 500 mg PO BID Qty: 14 0RF tramadol 50 mg tablet 50 mg PO Q8H PRN (Reason: pain) 3 Days Qty: 7 0RF No Action mirtazapine 45 mg tablet 45 mg PO QHS lisinopril 10 mg tablet 10 mg PO QDAY albuterol sulfate [Ventolin HFA] 90 mcg/actuation HFA aerosol inhaler 2 puff INHALATION Q4H PRN (Reason: shortness of breath or wheezing) Qty: 18 11RF ondansetron 4 mg tablet,disintegrating 4 mg PO Q6 PRN (Reason: nausea/vomiting) tramadol 50 mg tablet 50 mg PO Q6 PRN (Reason: pain) hydroxyzine pamoate 25 mg capsule 25 mg PO QDAY PRN (Reason: anxiety) Breztri Aerosphere 160-9-4.8 mcg/actuation HFA aerosol inhaler 2 inh inhalation BID Qty: 10.7 6RF cholecalciferol (vitamin D3) 2,000 UNIT capsule 50 mcg PO DAILY aripiprazole [Abilify] 5 mg Tablet 5 mg PO DAILY metoprolol tartrate 25 mg Tablet 25 mg PO BID 30 Days Qty: 60 0RF Rx Instructions: Hold for heart less than 50 or systolic blood pressure less than 100 mmHg. albuterol sulfate 2.5 mg /3 mL (0.083 %) solution for nebulization 2.5 mg continuous nebulization PRN Patient Comments: Use 3 mL via nebulizer one time only for 1 dose. Use over 5-15minutes. amlodipine 5 mg tablet 5 mg PO DAILY pantoprazole 40 mg tablet,delayed release (DR/EC) 40 mg PO DAILY simvastatin 20 mg tablet 20 mg PO QHS OXYGEN - Supplemental ([facility] INFORMATIONAL USE ONLY) 5 l intranasal CONT Rx Instructions: USES 5L N/C nicotine 14 mg/24 hr patch 24 hour 1 patch transdermal ONCE Qty: 28 1RF (DME) Shower chair See Rx Instructions .Route .MEDSUPPLY Qty: 1 0RF Rx Instructions: As directed ipratropium-albuterol 0.5 mg-3 mg(2.5 mg base)/3 mL solution for nebulization 3 ml inhalation Q4H Qty: 360 11RF tramadol 100 mg tablet 100 mg PO BID PRN (Reason: pain) 20 Days Qty: 40 0RF Primary Care Provider: Annmarie Hay Referrals: Annmarie Hay MD [Primary Care Provider, Internal Medicine] - 3-5 Days if not improving Print Language: Palestinian Disposition Disposition: Home, Self Care Discharge Date/Time: 07/07/25 01:18
[2025-07-07 01:15] VITALS: BP 155/62; PULSE 88; RESP 14; TEMP 36.6; O2SAT 95
== END 2025-07-07 01:18 | disposition home or self-care (01) ==
PROVIDERS: Emergency Provider Emergency Medicine; PCP Internal Medicine; Visit Provider Emergency Medicine
DX: K52.9 Noninfective gastroenteritis and colitis, unspecified (principal); K86.1 Other chronic pancreatitis; J44.9 Chronic obstructive pulmonary disease, unspecified; E78.5 Hyperlipidemia, unspecified; K59.00 Constipation, unspecified; K21.9 Gastro-esophageal reflux disease without esophagitis; D72.829 Elevated white blood cell count, unspecified; F17.200 Nicotine dependence, unspecified, uncomplicated; Z98.51 Tubal ligation status; Z99.89 Dependence on other enabling machines and devices
CPT/HCPCS: 74177; 80053; 83690; 85025; J2405; Q9967; 96361; 96374; 96375; 99283

== ENCOUNTER 2025-07-10 06:54 | Emergency (ER) | payer MEDICAID, SELFPAY ==
[2025-07-10 06:55] VITALS: BP 147/94; PULSE 122; RESP 20; TEMP 36.8; O2SAT 90; BMI 24.0
--- NOTE | 2025-07-10 07:13 | CT_ITS ---
PROCEDURE: ABDOMEN/PELVIS W IV CONT ONLY 07/10/2025 REASON FOR EXAM: ABD PAIN Recent stent placed in the pancreas. TECHNIQUE: Procedure Code: [id number] Modality: CT Procedure: ABDOMEN/PELVIS W IV CONT ONLY Coronal and Sagittal reconstruction series were provided. CONTRAST: Isovue-300 VOLUME: 100 mL One or more dose reduction techniques were used (e.g., Automated exposure control, adjustment of the mA and/or kV according to patient size, use of iterative reconstruction technique. RADIATION DOSE SUMMARY: CTDlvol: 13.2 mGy DLP: 747.47 mGycm COMPARISON: Prior study dated July 06, 2025. FINDINGS: Lung bases: The lung bases are clear. Calcification of the mitral valve annulus as well as the coronary arteries. Liver: Stable subcentimeter cyst in the posterior upper aspect of the right lobe of the liver. Minimally dilated intrahepatic biliary ducts. Pneumobilia in the left anterior biliary ducts secondary to the recent common bile duct stent placement. A stent is seen within the common bile duct extending into the 2nd portion of the duodenum. Gallbladder: Surgically absent. Spleen: Normal size. Pancreas: The pancreatic duct measures upper limits of normal. Calcification seen in the head of the pancreas and uncinate process in keeping with a chronic pancreatitis. Adrenals: Unremarkable Kidneys: Normal renal sizes. No hydronephrosis. Bladder: Unremarkable Reproductive Organs: Normal uterine size and contour. Ovaries are unremarkable. Bowel: Colonic diverticulosis without diverticulitis. Appendix: The appendix is not identified. There is no inflammatory process identified in the right lower quadrant to suggest appendicitis. Lymph nodes: Unremarkable. Vasculature: Mild diffuse atherosclerotic calcifications are noted. Peritoneum / Retroperitoneum: Unremarkable Bones: Degenerative changes of the spine. CT/Abdomen/Pelvis W IV Cont ONLY IMPRESSION: Status post common bile duct stent placement with minimally dilated central int rahepatic biliary ducts as well as pneumobilia in the left hepatic ducts. Findings in keeping with chronic pancreatitis with the pancreatic duct measurin g upper limits of normal. Stable examination. Reading Location: [place] [id number]
--- NOTE | 2025-07-10 07:20 | ED.VIS.GI ---
HPI HPI - GI History of Present Illness Chief Complaint: Abd Pain Narrative Narrative: Patient is a 60-year-old female presenting to the emergency department for abdominal pain. Patient has a significant past medical history of alcoholic liver disease, chronic pancreatitis, COPD on chronic 5 L nasal cannula, underwent a recent upper GI endoscopy on July 06 for stent removal. Patient states that she fell leaving the hospital on Thursday. States she has had abdominal pain 10 out of 10 since. She was seen in the emergency department the day after her fall and had extensive workup including labs and CT imaging. Ultimately found to have colitis and was discharged home on antibiotics. Patient reports she is on chronic pain management at home and normally takes tramadol. States this has not been controlling her pain at home. She denies fever, chills, nausea, vomiting, dysuria, hematuria, diarrhea or constipation. [facility] Medical History Wears glasses Wears dentures Dietary restriction Smoker BiPAP (biphasic positive airway pressure) dependence Sleep apnea History of echocardiogram Uses walker Encounter for replacement of pancreatic stent Stenosis of left subclavian artery Pulmonary nodule Acute hypoxic respiratory failure Chronic pancreatitis Pancreatic stones HLD (hyperlipidemia) History of alcohol abuse Pneumonia Acute on chronic hypoxic respiratory failure Stage 3 severe COPD by GOLD classification Asthma COPD (chronic obstructive pulmonary disease) Arthritis History of back problems Anxiety and depression Chronic pancreatitis HPV (human papilloma virus) infection Anemia Tobacco abuse GERD (gastroesophageal reflux disease) Benign hypertension Home Medications ?Medication ?Instructions ?Recorded ?Last Taken ?Type cholecalciferol (vitamin D3) 50 50 mcg PO DAILY SUPPLEMENT 12/29/18 03/13/25 09:00 History mcg (2,000 unit) capsule 50 mcg aripiprazole 5 mg tablet (Abilify) 5 mg PO DAILY mood 01/22/21 07/06/25 07:30 History mirtazapine 45 mg tablet 45 mg PO QHS sleep 01/16/22 03/12/25 21:00 History 45 mg metoprolol tartrate 25 mg tablet 25 mg PO BID 30 days #60 tabs 01/05/24 07/05/25 Rx lisinopril 10 mg tablet 10 mg PO QDAY hypertension 01/26/24 07/06/25 07:30 History albuterol sulfate 90 mcg/actuation 2 puff inhalation Q4H PRN 05/11/24 03/13/25 09:00 Rx aerosol inhaler (Ventolin HFA) shortness of breath or wheezing 2 puff #18 grams nicotine 14 mg/24 hr daily 1 patch transdermal ONCE #28 ea 12/14/24 Unknown Rx transdermal patch ondansetron 4 mg disintegrating 4 mg PO Q6 PRN nausea/vomiting 12/23/24 Unknown History tablet Shower chair #1 ea 12/30/24 Unknown Rx ipratropium 0.5 mg-albuterol 3 mg 3 ml inhalation Q4H shortness of 01/04/25 03/13/25 09:00 Rx (2.5 mg base)/3 mL nebulization breath or wheezing #360 mL 3 mL soln albuterol sulfate 2.5 mg/3 mL 2.5 mg continuous nebulization PRN 03/13/25 03/13/25 09:00 History (0.083 %) solution for nebulization COPD 2.5 mg amlodipine 5 mg tablet 5 mg PO DAILY hypertension 03/13/25 07/06/25 07:30 History pantoprazole 40 mg tablet,delayed 40 mg PO DAILY acid reflux 03/13/25 07/06/25 07:30 History release simvastatin 20 mg tablet 20 mg PO QHS high cholesterol 03/13/25 03/12/25 21:00 History 20 mg budesonide 160 mcg-glycopyr 9 2 inh inhalation BID #10.7 grams 04/10/25 Unknown Rx mcg-formot 4.8 mcg/actuation HFA inhaler (Breztri Aerosphere) hydroxyzine pamoate 25 mg capsule 25 mg PO QDAY PRN anxiety 04/10/25 07/06/25 07:30 History tramadol 50 mg tablet 50 mg PO Q6 PRN pain 04/10/25 Unknown History OXYGEN - Supplemental ([facility] 5 l intranasal CONT 07/04/25 Unknown History INFORMATIONAL USE ONLY) tramadol 100 mg tablet 100 mg PO BID PRN pain 20 days #40 07/06/25 Unknown Rx tabs ciprofloxacin HCl 500 mg tablet 500 mg PO BID #14 TABLETS 07/07/25 Unknown Rx metronidazole 500 mg tablet 500 mg PO Q8H #21 tabs 07/07/25 Unknown Rx tramadol 50 mg tablet 50 mg PO Q8H PRN pain 3 days #7 07/07/25 Unknown Rx tabs ondansetron 4 mg disintegrating 4 mg PO Q8H PRN PRN Nausea #10 tabs 07/10/25 Unknown Rx tablet Allergy/AdvReac Type Severity Reaction Status Date / Time clindamycin Allergy Intermediate Hives Verified 07/10/25 06:55 Penicillins Allergy Hives Verified 07/10/25 06:55 sulfamethoxazole (From Allergy Other Verified 07/10/25 06:55 Bactrim) trimethoprim (From Bactrim) Allergy Other Verified 07/10/25 06:55 hydrocodone (From [place]) AdvReac Itching Verified 07/10/25 06:55 Family History Mother Diabetes Hypertension Heart disease High cholesterol Arthritis Thyroid disorder Brother Hypertension Sister Cancer cervical Thyroid disorder Father Kidney disease Daughter Thyroid disorder Surgical History History of tubal ligation History of colonoscopy History of appendectomy Social History household members: family Smoking Status: Heavy Smoker (>10/day) Tobacco: How many years used: 30 second hand exposure: Yes alcohol intake: former details: Sober since 2020. substance use type: does not use caffeine: Yes ROS ROS ED ROS Narrative see HPI EXAM Physical Exam Narrative Exam Narrative: Vital signs: Reviewed General: Alert and orientedx3. No acute distress HEENT: Head is normocephalic and atraumatic, sinuses nontender, pupils equal round and reactive. Nares are patent. Oropharynx and throat exams normal. Neck: Supple without lymphadenopathy nontender Cardiovascular: Tachycardic rate and regular rhythm, no murmurs. No rubs or gallops. Normal S1 and S2 Respiratory: Mild end expiratory wheezing in bilateral lower lobes. Clear upper lobes. On 5 L nasal cannula which is her baseline. Abdominal: Soft and tender to palpation diffusely. Normal bowel sounds. No guarding or rebound. Nonsurgical abdomen Extremities: No tenderness. No bruising. Normal range of motion. Normal sensation. Skin: No rash or redness. Neurological: Cranial nerves II through XII are grossly intact. Normal strength and sensation. Normal cerebellar function The rest of the physical exam is unremarkable Const Vital Signs: 07/10/25 06:55 07/10/25 08:54 07/10/25 09:30 Temperature 98.3 F Temperature Source Oral Pulse Rate 122 H 102 H 108 H Respiratory Rate 20 H 23 H 32 H Blood Pressure 147/94 H 151/70 H 176/78 H Blood Pressure Mean 111 97 106 Pulse Ox 90 96 91 Oxygen Delivery Method Nasal Cannula Nasal Cannula Oxygen Flow Rate (L/min) 5 5 07/10/25 10:00 07/10/25 11:43 07/10/25 12:08 Temperature 97.8 F Temperature Source Pulse Rate 109 H 100 104 H Respiratory Rate 21 H 23 H 20 H Blood Pressure 184/82 H 167/93 H 167/93 H Blood Pressure Mean 107 117 117 Pulse Ox 95 96 92 Oxygen Delivery Method Nasal Cannula Nasal Cannula Oxygen Flow Rate (L/min) 5 MDM MDM MDM Narrative Medical decision making narrative: Patient is a 60-year-old female presenting emergency department for abdominal pain. Patient has chronic abdominal pain. She was seen and examined. Vitals are stable. Resting in bed comfortably no acute distress. She is chronically unwell appearing. Patient was given her home tramadol for pain control. Of note she is in pain management and is prescribed multiple analgesics for home. Given the patient reporting that this abdominal pain feels different than her prior episodes of pancreatitis the CT was repeated from 4 days ago. CBC with mild leukocytosis however comparable to her and normal on chart review at 16.1. Just 4 days ago was 18.4. Mild anemia of 11.8. CMP with baseline elevated alk phos of 147. Otherwise no significant abnormalities. Baseline elevated lipase at 77, 4 days ago was 83. Urinalysis with no evidence of urinary tract infection. CT shows status post common bile duct stent placement with minimally dilated central intrahepatic biliary ducts as well as pneumobilia in the left hepatic ducts. Findings in keeping with chronic pancreatitis with the pancreatic duct measuring upper limits of normal. Stable examination. Patient follows with forestry patrolman, Dr. Segura who is on-call. I discussed the CT findings with him and he states these are improving from prior. Has no further recommendations for outpatient management. I discussed the workup and findings with the patient. Patient asks if I can prescribe her narcotics for home. I explained that she already has a pain management doctor and she should call them if she needs any further pain management for home given this is likely chronic pain. She also asked for Zofran for home if needed. This was prescribed. Encouraged follow-up with Dr. Segura to soon as possible. Patient discharged from the Emergency Department. I do not feel that the patient's evaluation reveals any acute reason for admission at this time. I instructed them to either follow-up with their primary care physician or promptly return to the Emergency Department for reevaluation should symptoms worsen or new symptoms develop. I explained what symptoms would indicate the need to return to the emergency department. Shared decision making was used. The patient voiced understanding of the treatment plan and is agreeable with it. Clinical impression abdominal pain Chronic pancreatitis History & Record Review Discussion w/independent historian: Patient Additional record(s) reviewed:: Prior ED visit and Prior labs Lab Data Attestation: I reviewed the patient's lab results. Labs: Laboratory Results - last 24 hr 07/10/25 07/10/25 07:20 09:20 WBC 16.1 H RBC 4.38 Hgb 11.8 L Hct 38.4 MCV 87.7 MCH 26.9 L MCHC 30.7 L RDW Std Deviation 43.8 RDW Coeff of Min 13.7 Plt Count 332 MPV 9.6 Immature Gran % (Auto) 0.900 Neut % (Auto) 71.1 H Lymph % (Auto) 16.7 L [place] % (Auto) 7.5 Eos % (Auto) 3.2 Baso % (Auto) 0.6 Absolute Neuts (auto) 11.4 H Absolute Lymphs (auto) 2.68 Nucleated RBC % 0 Sodium 134 Potassium 4.2 Chloride 92 L Carbon Dioxide 33.4 H Anion Gap 8 BUN 9 Creatinine 0.66 L Estim Creat Clear Calc 73.11 Est GFR (MDRD) Non-Af 99 BUN/Creatinine Ratio 14.4 Glucose 95 Calcium 9.4 Total Bilirubin 0.26 AST 30 ALT 27 Alkaline Phosphatase 147 H Total Protein 7.2 Albumin 3.7 Globulin 3.5 Albumin/Globulin Ratio 1.1 Lipase 77 H Urine Color Yellow Urine Clarity Clear Urine pH 6.0 Ur Specific [place] 1.010 Urine Protein 15 H Urine Glucose (UA) Normal Urine Ketones Negative Urine Occult Blood 10 H Urine Nitrite Negative Urine Bilirubin Negative Urine Urobilinogen Normal Ur Leukocyte Esterase 25 H Urine RBC 0-5 SEEN Urine WBC 0-5 SEEN Ur Squamous Epith Cells 0-5 SEEN Ur Transition Epith Cell 0-5 SEEN Urine Bacteria 0 SEEN Urine Mucus 0 SEEN Radiography Diagnostic Testing: Clinical Impression(s) from Imaging Studies Abdomen/Pelvis CT 07/10/25 07:13 IMPRESSION: Status post common bile duct stent placement with minimally dilated central intrahepatic biliary ducts as well as pneumobilia in the left hepatic ducts. Findings in keeping with chronic pancreatitis with the pancreatic duct measuring upper limits of normal. Stable examination. Reading Location: [facility] Discharge Plan Triage Chief Complaint: Abd Pain ED Provider: Joanne Kelly Dx/Rx/DC Orders Clinical Impression: Chronic pancreatitis, Abdominal pain Instructions: Abdominal Pain, ED Pancreatitis Prescriptions: New ondansetron 4 mg tablet,disintegrating 4 mg PO Q8H PRN PRN (Reason: Nausea) Qty: 10 0RF No Action mirtazapine 45 mg tablet 45 mg PO QHS lisinopril 10 mg tablet 10 mg PO QDAY albuterol sulfate [Ventolin HFA] 90 mcg/actuation HFA aerosol inhaler 2 puff INHALATION Q4H PRN (Reason: shortness of breath or wheezing) Qty: 18 11RF ondansetron 4 mg tablet,disintegrating 4 mg PO Q6 PRN (Reason: nausea/vomiting) tramadol 50 mg tablet 50 mg PO Q6 PRN (Reason: pain) hydroxyzine pamoate 25 mg capsule 25 mg PO QDAY PRN (Reason: anxiety) Breztri Aerosphere 160-9-4.8 mcg/actuation HFA aerosol inhaler 2 inh inhalation BID Qty: 10.7 6RF cholecalciferol (vitamin D3) 2,000 UNIT capsule 50 mcg PO DAILY aripiprazole [Abilify] 5 mg Tablet 5 mg PO DAILY metoprolol tartrate 25 mg Tablet 25 mg PO BID 30 Days Qty: 60 0RF Rx Instructions: Hold for heart less than 50 or systolic blood pressure less than 100 mmHg. albuterol sulfate 2.5 mg /3 mL (0.083 %) solution for nebulization 2.5 mg continuous nebulization PRN Patient Comments: Use 3 mL via nebulizer one time only for 1 dose. Use over 5-15minutes. amlodipine 5 mg tablet 5 mg PO DAILY pantoprazole 40 mg tablet,delayed release (DR/EC) 40 mg PO DAILY simvastatin 20 mg tablet 20 mg PO QHS OXYGEN - Supplemental ([facility] INFORMATIONAL USE ONLY) 5 l intranasal CONT Rx Instructions: USES 5L N/C metronidazole 500 mg tablet 500 mg PO Q8H Qty: 21 0RF ciprofloxacin HCl 500 mg tablet 500 mg PO BID Qty: 14 0RF tramadol 50 mg tablet 50 mg PO Q8H PRN (Reason: pain) 3 Days Qty: 7 0RF nicotine 14 mg/24 hr patch 24 hour 1 patch transdermal ONCE Qty: 28 1RF (DME) Shower chair See Rx Instructions .Route .MEDSUPPLY Qty: 1 0RF Rx Instructions: As directed ipratropium-albuterol 0.5 mg-3 mg(2.5 mg base)/3 mL solution for nebulization 3 ml inhalation Q4H Qty: 360 11RF tramadol 100 mg tablet 100 mg PO BID PRN (Reason: pain) 20 Days Qty: 40 0RF Primary Care Provider: Annmarie Hay Referrals: Annmarie Hay MD [Primary Care Provider, Internal Medicine] - As soon as possible Friend,DO Marshal [Med Staff - Active Staff, Gastroenterology] - As soon as possible Activity Restrictions/Additional Instructions: Please follow-up with your forestry patrolman to soon as possible. I recommend that you call your pain management doctor or your primary care if you need any additional pain medication for your chronic pain. Your evaluation in the Emergency Department did not reveal any acute reason for admission. However, I want to emphasize that you may be early in the course of a disease process or illness even if it is not present. For this reason you should follow-up within 24 hours for reevaluation with either your primary care physician or if necessary back here in the Emergency Department. You should return to the Emergency Department immediately if your symptoms worsen or new symptoms develop. Print Language: Belarusian Disposition Disposition: Home, Self Care Discharge Date/Time: 07/10/25 12:09
[2025-07-10 07:28] LABS: Hematocrit 38.4 % (37-47); Hemoglobin 11.8 g/dL (12.0-15.0); Immature Granulocytes Count 0.140 X10^3/uL (0.0-0.0); Mean Corp Hgb Conc 30.7 g/dL (32-36); Mean Corpuscular Volume 87.7 fL (81-99); Mean Platelet Vol. 9.6 fl (6.2-12.0); NRBC Flagged by Analyzer 0 % (0-5); Platelet Count 332 K/mm3 (150-450); RBC Distribution Width CV 13.7 % (11.6-14.6); RBC Distribution Width SD 43.8 fl (35.1-43.9); Red Blood Count 4.38 M/mm3 (4.2-5.4); White Blood Count 16.1 K/mm3 (4.4-11.0)
[2025-07-10 08:25] LABS: AST(SGOT) 30 U/L (<=31); Alanine Aminotransfer ALT/SGPT 27 U/L (<=34); Albumin, Serum 3.7 g/dL (3.4-4.8); Alkaline Phosphatase 147 U/L (35-104); Anion Gap 8 (5-15); BUN 9 mg/dL (4-19); BUN/Creat Ratio 14.4 RATIO (10-20); Calcium,Total 9.4 mg/dL (7.6-11.0); Carbon Dioxide 33.4 mmol/L (21.0-32.0); Chloride 92 mmol/L (98-108); Estimated Creatinine Clearance 73.11 ml/min (50-250); Globulin 3.5 g/dL (2.2-4.2); Glucose 95 mg/dL (70-99); Lipase 77 U/L (13-75); Potassium 4.2 mmol/L (3.3-5.1)
[2025-07-10 08:54] VITALS: BP 151/70; PULSE 102; RESP 23; O2SAT 96
[2025-07-10 09:30] VITALS: BP 176/78; PULSE 108; RESP 32; O2SAT 91
[2025-07-10 09:40] LABS: Mucous, Urine 0 SEEN /hpf (<or=2+)
[2025-07-10 09:55] LABS: Color, Urine Yellow (Yellow); Glucose, Dipstick Normal (Normal); Ketone-Dipstick Negative (Negative); Leukocyte Esterase-Dipstick 25 /ul (Negative); Nitrite-Dipstick Negative (Negative); Occult Blood-Urine 10 /ul (Negative); Protein-Dipstick 15 mg/dl (Negative); Specific Gravity, Urine 1.010 (1.002-1.030); Urine Bilirubin Dipstick Negative (Negative)
[2025-07-10 10:00] VITALS: BP 184/82; PULSE 109; RESP 21; O2SAT 95
[2025-07-10 10:05] LABS: Red Blood Cells-Urine 0-5 SEEN /hpf (0-5); Squamous Epithelial Cells - UA 0-5 SEEN /hpf (5-10); Transitional Epithelial - Ur 0-5 SEEN /hpf (0-5)
[2025-07-10 11:43] VITALS: BP 167/93; PULSE 100; RESP 23; O2SAT 96
[2025-07-10 12:08] VITALS: BP 167/93; PULSE 104; RESP 20; TEMP 36.6; O2SAT 92
== END 2025-07-10 12:09 | disposition home or self-care (01) ==
PROVIDERS: Emergency Provider Student in an Organized Health Care Education/Training Program; PCP Internal Medicine; Visit Provider Student in an Organized Health Care Education/Training Program
DX: K86.1 Other chronic pancreatitis (principal); J44.9 Chronic obstructive pulmonary disease, unspecified; E78.5 Hyperlipidemia, unspecified; F17.200 Nicotine dependence, unspecified, uncomplicated; R74.8 Abnormal levels of other serum enzymes; D64.9 Anemia, unspecified; Z79.891 Long term (current) use of opiate analgesic; Z99.81 Dependence on supplemental oxygen; M54.9 Dorsalgia, unspecified; G89.29 Other chronic pain; Z99.89 Dependence on other enabling machines and devices; Z98.51 Tubal ligation status; R10.9 Unspecified abdominal pain
CPT/HCPCS: 74177; 80053; 81001; 83690; 85025; 99285; A4216; Q9967

== ENCOUNTER 2025-07-12 21:01 | Inpatient (IN) | payer MEDICAID, SELFPAY ==
[2025-07-12] VITALS (12 sets, daily range): BP systolic 89–150; BP diastolic 72–83; PULSE 99–117; RESP 13–23; TEMP 36.4–36.6; O2SAT 58–95; BMI 22.8
--- OUTSIDE RECORDS SUMMARY | 2025-07-12 21:39 | XMS RPT_ITS | CCD ---
Author Organization [facility] Care Team Providers Care Hip Hop Artist Name Role Phone TAZTERECHING Unavailable Unavailable Misbah Elkins MD Primary Care Provider Ho MINI LAB OPERATOR, MINI LAB OPERATOR-C Theron Primary Care Provider Dr. Freddie Perdue Attending Provider Dr. Freddie Perdue Referring Provider Misbah Elkins MD Primary Care Provider Misbah Elkins MD Primary Care Provider RUSTAM, MINI LAB OPERATOR-C SOILA Primary Care Provider Alesha MINI LAB OPERATOR, MINI LAB OPERATOR-C Ani Attending Provider Alesha MINI LAB OPERATOR, MINI LAB OPERATOR-C Ani Referring Provider Unavailable Primary Care Provider Unavailabl e Free, Text Entry Unavailable Unavailable Older, Soila A Unavailable Unavailable Yalamanchali, Varija Unavailable Unavailable Prennorah, Yrn Unavailable Unavailable Older, Soila A Unavailable Jaime Aggarwla MD Unavailable Jeffery Jin MD Unavailable Dr. [...] Dieter Harrison Other Provider Unavailab anjelica Eduardo MINI LAB OPERATOR, MINI LAB OPERATOR-C Ani Other Provider Dr. Anastacia Bonilla Other Provider [phone] Dr. Anastacia Bonilla Attending Provider Dr. Courtney Iverson Other Provider [phone] [...] Unavailable Pending, Provider Primary Care Unavailable OLDER, MINI LAB OPERATOR-C SOILA Primary Care Provider OLDER, MINI LAB OPERATOR-C SOILA Referring Provider Alesha MINI LAB OPERATOR, MINI LAB OPERATOR-C Ani Attending Provider [phone] Dr. Víctor Huerta Emergency Provider [phone] Brock MINI LAB OPERATOR, MINI LAB OPERATOR-C Anat Primary Care Provider Dr. Carin Meraz Admit Provider Dr. Carin Meraz Other Provider Dr. Anastacia Bonilla Attending Provider Dr. Anastacia Bonilla Other Provider Dr. Bert Greenwood Attending Provider Dr. Bert Greenwood Other Provider Satnam MENENDEZ, Misbah Primary Care Provider Candie Talley PA-C Unavailable Older TRANSMISSIONS SYSTEMS OPERATOR.LEGAL EXECUTIVE ASSISTANT, Soila Unavailable Neo BELTRAN, Nara Unavailable Satnam MENENDEZ, Dr. Anguiano Primary Care Provider Alesha MINI LAB OPERATOR-C, Ani Attending Provider Alesha MINI LAB OPERATOR-CAni Referring Provider Storm MENENDEZ, Dr. Gamez Emergency [...] Provider Fede MENENDEZ, Dr. Rodriguez Other Provider [facility] cherry Hurt MD, Dr. Ward Other Provider [phone] Conchita MENENDEZ, Dr. Booker Other Provider Yamel [...] Lorenza MENENDEZ, Dr. Jackson Salas Other Provider [phone] Chris MENENDEZ, Dr. Rico Other Provider Kiko MENENDEZ, Dr. Harley Other Provider [phone] Robbie MENENDEZ, Dr. Urban Other Provider [phone] Randee MENENDEZ, Dr. Guillory Other Provider [phone] Silvio MENENDEZ, Dr. Kelley Other Provider [phone] Candido MENENDEZ, Dr. Sandoval Other Provider [phone] Brad MENENDEZ, Dr. Em Other Provider Fede MENENDEZ, Dr. Rodriguez Other Provider Unavailabl cherry Hurt MD, Dr. Ward Other Provider [phone] Conchita MENENDEZ, Dr. Booker Other Provider Yamel MENENDEZ, Dr. Johnson Other Provider [phone] Manuel MENENDEZ, Dr. Doan Other Provider Niru LOTT, Dr. Kathleen Other Provider Nancy MENENDEZ, Dr. Sánchez Other Provider [phone] Tr MENENDEZ, Dr. Gutierres Other Provider [phone] Sofia LOTT, Dr. Hurst Other Provider Jeferson MENENDEZ, Dr. Barreto Other Provider Billy MENENDEZ, Dr. Pal Other Provider Dr. Yrn Kahn DO Attending Provider Chad MENENDEZ, Dr. Anastacia Ni Other Provider [phone] Dr. Marshal Segura DO Attending Provider Satnam MENENDEZ, Dr. Anguiano Primary Care Provider Alesha MINI LAB OPERATOR-CAni Attending Provider Alesha MINI LAB OPERATOR-CAni Referring Provider Storm MENENDEZ, Dr. Gamez Emergency Provider Olivier LOTT, Dr. River Admit Provider Dr. Aleta Aguayo DO Other Provider [phone] Chad MENENDEZ, Dr. Anastacia Ni Attending Provider [...] Robbie MENENDEZ, Dr. Urban Other Provider [phone] Randee MENENDEZ, Dr. Guillory Other Provider Silvio MENENDEZ, Dr. Kelley Other Provider [phone] Dr. Jaime Rey MD Other Provider Brad MENENDEZ, Dr. Em Other Provider Fede MENENDEZ, Dr. Rodriguez Other Provider [facility] Hurt MD, Dr. Ward Other Provider Dr. Jhony Arango MD Other Provider Yamel MENENDEZ, Dr. Johnson Other Provider Dr. Franki Jackson MD Other Provider Dr. Hever Marrufo DO Other Provider Nancy MENENDEZ, Dr. Sánchez Other Provider [phone] Dr. Nenita Armando MD Other Provider Dr. Aris Black DO Other Provider Jeferson MENENDEZ, Dr. Barreto Other Provider Billy MENENDEZ, Dr. Pal Other Provider Minor [...] Storm MENENDEZ, Dr. Gamez Attending Provider Brock MINI LAB OPERATOR-C, Anat Referring Provider Abi LOTT, Dr. Camacho [...] Chris MENENDEZ, Dr. Rico Other Provider [phone] Kiko MENENDEZ, Dr. Harley Other Provider Robbie MENENDEZ, Dr. Urban Other Provider Randee MENENDEZ, Dr. Guillory Other Provider [phone] Silvio MENENDEZ, Dr. Kelley Other Provider [phone] Candido MENENDEZ, Dr. Sandoval Other Provider [phone] Brad MENENDEZ, Dr. Em Other Provider Fede MENENDEZ, Dr. Rodriguez Other Provider Unavailabl cherry Hurt MD, Dr. Ward Other Provider [phone] Conchita MENENDEZ, Dr. Booker Other Provider Yamel MENENDEZ, Dr. Johnson Other Provider [phone] Manuel MENENDEZ, Dr. Doan Other Provider Niru LOTT, Dr. Kathleen Other Provider Nancy MENENDEZ, Dr. Sánchez Other Provider [phone] Tr MENENDEZ, Dr. Gutierres Other Provider [phone] Aris Black DO Other Provider Jeferson MENENDEZ, Dr. Barreto Other Provider Billy MENENDEZ, Dr. Pal Other Provider Chad MENENDEZ, Dr. Anastacia Ni Other Provider Dr. Gonzalo Sebastian DO Attending Provider Alesha HERNANDEZ-C, Ani Attending Provider Felecia MENENDEZ, Dr. Sudhir Monte Referring Provider Satnam MENENDEZ, Dr. Anguiano Primary Care Provider Satnam MENENDEZ, Dr. Anguiano Referring Provider Storm MENENDEZ, Dr. Gamez Emergency Provider [phone] Leigh MENENDEZ, Dr. Conde Other Provider Shannon MENENDEZ, Dr. Davis Other Provider Iron MENENDEZ, Dr. Frazier Other Provider Romulo LOTT, Dr. Sánchez Other Provider Lorenza MENENDEZ, Dr. Jackson Salas Other Provider [phone] Chris MENENDEZ, Dr. Rico Other Provider [phone] Kiko MENENDEZ, Dr. Harley Other Provider Robbie MENENDEZ, Dr. Urban Other Provider [phone] Randee MENENDEZ, Dr. Guillory Other Provider [phone] Silvio MENENDEZ, Dr. Kelley Other Provider [phone] Candido MENENDEZ, Dr. Sandoval Other Provider [phone] Brad MENENDEZ, Dr. Em Other Provider Fede MENENDEZ, Dr. Rodriguez Other Provider Unavailabl cherry Hurt MD, Dr. Ward Other Provider [phone] Conchita MENENDEZ, Dr. Booker Other Provider Yamel MENENDEZ, Dr. Johnson Other Provider [phone] Manuel MENENDEZ, Dr. Doan Other Provider [phone] Dr. Hever Marrufo DO Other Provider [phone] Nancy MENENDEZ, Dr. Sánchez Other Provider [phone] Tr MENENDEZ, Dr. Gutierres Other Provider [phone] Aris Black DO Other Provider Jeferson MENENDEZ, Dr. Barreto Other Provider Billy MENENDEZ, Dr. Pal Other Provider [phone] Romulo LOTT, Dr. Sánchez Attending Provider [phone] Patricia MENENDEZ, Dr. Valencia Referring Provider Dr. Erik Gomez MD Emergency Provider de Dustin LOTT, Dr. Paz Admit Provider Unavail able de Dustin LOTT, Dr. Paz Attending Provider Unav ailable de Dustin DO, Dr. Paz Other Provider Unavail able Timo MENENDEZ, Dr. Noel Other Provider Timo MENENDEZ, Dr. Noel Attending Provider SANTA GUERRERO Admitting Unavailable KLUSTY, MACARIO Referring Unavailable GANTA, MISBAH Primary Care Unavailable GURJIT RAYO Attending Unavailable GERSON MCCALL SANG Consulting Unavaila ble DANYEL, NGUYEN Referring Unavailable GANTA, MISBAH Primary Care Unavailable Satnam MENENDEZ, Dr. Anguiano Primary Care Provider Alesha MINI LAB OPERATOR-CAni Attending Provider Dr. Misbah Elkins MD Referring Provider Gabby Vela Attending Provider Dr. Misbah Elkins MD Primary Care Provider Gabby Vela Referring Provider Robin MENENDEZ, Dr. Rubio Emergency Provider Unavailab anjelica Kelly MD, Dr. Rubio Attending Provider Unavailab anjelica Grijalva MD, Dr. Peguero Attending Provider Dr. Sudhir Grijalva MD Referring Provider Dr. Mo Velasco DO Emergency Provider Dr. Misbah Elkins MD Primary Care Provider Dr. Franco Inman MD Attending Provider Dr. Franco Inman MD Emergency Provider Dr. Mo Velasco DO Attending Provider GANTA, MISBAH Primary Care Unavailable GANTA, MISBAH Referring Unavailable GANTA, MISBAH Attending Unavailable GANTA, MISBAH Primary Care Unavailable GANTA, MISBAH Primary Care Unavailable OLDER, SOILA Referring Unavailable GANTA, MISBAH Primary Care Unavailable OLDER, SOILA Attending Unavailable OLDER, SOILA Referring Unavailable GANTA, MISBAH Primary Care Unavailable OLDER, SOILA Referring Unavailable GANTA, MISBAH Primary Care Unavailable GANTA, MISBAH Referring Unavailable GANTA, MISBAH Primary Care Unavailable GANTA, MISBAH Referring Unavailable EDUARD GALEANO Attending Unavailable GANTA, MISBAH Primary Care Unavailable NADEEN, JUAN Referring Unavailable GANTA, MISBAH Primary Care Unavailable TARA YOUNGBLOOD Attending Unavailabl e GANTA, MISBAH Primary Care Unavailable OLDER, SOILA Referring Unavailable GANTA, MISBAH Primary Care Unavailable OLDER, SOILA Attending Unavailable NADEEN, JUAN Attending Unavailable GANTA, IMSBAH Primary Care Unavailable OLDER, SOILA Referring Unavailable GANTA, MISBAH Attending Unavailable GANTA, MISBAH Primary Care Unavailable GANTA, MISBAH Primary Care Unavailable OLDER, SOILA Referring Unavailable GANTA, MISBAH Primary Care Unavailable YOUNGBLOOD, TARA MISTY Referring Unavailabl e GANTA, MISBAH Attending Unavailable GANTA, MISBAH Primary Care Unavailable GANTA, MISBAH Primary Care Unavailable OLDER, SOILA Attending Unavailable VANESSA PEREZ Attending Unavailable GANTA, MISBAH Primary Care Unavailable JANE FARRELL Referring Unavailable GANTA, MISBAH Primary Care Unavailable NICOLAS GREER Attending Unavailable GURJIT RAYO Referring Unavailable GANTA, MISBAH Primary Care Unavailable YOUNGBLOOD, TARA JAY Referring Unavailabl e GANTA, MISBAH Primary Care Unavailable GANTA, MISBAH Referring Unavailable GANTA, MISBAH Primary Care Unavailable OLDER, SOILA Attending Unavailable GANTA, MISBAH Primary Care Unavailable GANTA, MISBAH Referring Unavailable Ganta, Misbah Primary Care Unavailable Gabby Martinez Attending Unavailable Gabby Martinez Referring Unavailable Ganta, Misbah Primary Care Unavailable Gabby Martinez Referring Unavailable Gabby Martinez Attending Unavailable Alesha MINI LAB OPERATOR, Ani Attending Unavailable Alesha MINI LAB OPERATOR, Ani Referring Unavailable Ganta, Misbah Primary Care Unavailable Aleta Aguayo Consulting Unavailable Olivier Aleta Admitting Unavailable Yrn Kahn Attending Unavailable Ganta, Misbah Primary Care Unavailable Elton Abraham Consulting Unavailable Ryan Ortega Consulting Unavailable Freddie Perdue Consulting Unavailable Gonzalo Sebastian Consulting Unavailable Jackson Britt Consulting Unavailable Jacky Perez Consulting Unavailable Cricket Hoover Consulting Unavailable Rajni Avalos Consulting Unavailab Kahlil Dietz Consulting Unavailable Warren Anguiano Consulting Unavailable Jaime Rey Consulting Unavailable Brad, Maria Antonia Consulting Unavailable Aljundi, Lamia Consulting Unavailable Hurt, Sylvia Consulting Unavailable Conchita, Jhony Consulting Unavailable Irukulla, Alex Consulting Unavailable Manuel, Franki Consulting Unavailable Dhesi, Hever Consulting Unavailable Gonzalo Cruz Consulting Unavailable Wathena, Soleyah Consulting Unavailable Ramíreznstrlow, Aris Consulting Unavailable Jeferson, Estevan Consulting Unavailable Demarco Cervantes Consulting Unavailable Yrn Kahn Consulting Unavailable Yrn Kahn Referring Unavailable Gonzalo Sebastian Attending Unavailable Sudhir Izquierdo Referring Unavailable Ganta, Misbah Primary Care Unavailable Gonzalo Sebastian Attending Unavailable Pako Fernández Admitting Unavailable Pako Fernández Consulting Unavailable Elton Abraham Consulting Unavailable Ryan Ortega Consulting Unavailable Freddie Perdue Consulting Unavailable Gonzalo Sebastian Consulting Unavailable Jackson Britt Consulting Unavailable Jacky Perez Consulting Unavailable Cricket Hoover Consulting Unavailable Rajni Avalos Consulting UnavailKahlil Garcia Consulting Unavailable Warren Anguiano Consulting Unavailable Jaime Rey Consulting Unavailable Brad, Maria Antonia Consulting Unavailable Aljundi, Lamia Consulting Unavailable Hurt, Sylvia Consulting Unavailable Conchita, Jhony Consulting Unavailable Irukulla, Alex Consulting Unavailable Manuel, Franki Consulting Unavailable Dhesi, Hever Consulting Unavailable Gonzalo Cruz Consulting Unavailable Wathena, Soleyajennifer Consulting Unavailable Jazminetrlow, Aris Consulting Unavailable Jeferson, Estevan Consulting Unavailable Demarco Cervantes Consulting Unavailable Sudhir Izquierdo Consulting Unavailable Sudhir Izquierdo Attending Unavailable Erik Gomez Referring Unavailable Ganta, Misbah Primary Care Unavailable Jackson Monk Consulting Unavailable Jackson Monk Admitting Unavailable Bert Greenwood Consulting Unavailable Sudhir Izquierdo Consulting Unavailable Alesha MINI LAB OPERATOR, Ani Attending Unavailable Ganta, Misbah Referring Unavailable Ganta, Misbah Primary Care Unavailable Ganta, Misbah Primary Care Unavailable Ganta, Misbah Referring Unavailable Gabby Martinez Attending Unavailable Alesha MINI LAB OPERATOR, Ani Attending Unavailable Ganta, Misbah Primary Care Unavailable Ganta, Misbah Referring Unavailable Ganta, Misbah Primary Care Unavailable Alesha MINI LAB OPERATOR, Ani Attending Unavailable Brock MINI LAB OPERATOR, Anat Referring Unavailable Koram, Anastacia Raine Referring Unavailable Friend, Marshal Attending Unavailable Koram, Anastacia Raine Consulting Unavailable Ganta, Misbah Referring Unavailable Ganta, Misbah Primary Care Unavailable Friend, Marshal Consulting Unavailable Friend, Marshal Attending Unavailable Ganta, Misbah Primary Care Unavailable Bridgette Gaxiola Attending Unavailkalyan Eduardo MINI LAB OPERATOR, Ani Referring Unavailable Gonzalo Sebastian Attending Unavailable Ganta, Misbah Primary Care Unavailable Koram, Anastacia Raine Attending Unavailable Ganta, Misbah Primary Care Unavailable Sudhir Grijalva Referring Unavailable Sudhir Grijalva Attending Unavailable Ganta, Misbah Primary Care Unavailable Mo Velasco Attending Unavailable Joanne Kelly Attending Unavailable Ganta, Misbah Primary Care Unavailable Ganta, Misbah Primary Care Unavailable Edmund Tang Attending Unavailable Sudhir Izquierdo Attending Unavailable Ganta, Misbah Primary Care Unavailable Pako Fernández Consulting Unavailable Pako Fernández Admitting Unavailable Elton Abraham Consulting Unavailable Ryan Ortega [...] Montesinos Consulting Unavailable Manuel, Franki Consulting Unavailable Conchita Marrufokhdeep Consulting Unavailable Gonzalo Cruz Consulting Unavailable Nenita Armando Consulting Unavailable Aris Black Consulting Unavailable Estevan Govea Consulting Unavailable Demarco Cervantes Consulting Unavailable Romeoam, Anastacia Raine Attending Unavailable Olivier Aleta Consulting Unavailable Olivier Aleta Admitting Unavailable Ganta, Misbah Primary Care Unavailable Yrn Kahn Consulting Unavailable Sudhir Izquierdo Attending Unavailable Erik Gomez Referring Unavailable Ganta, Misbah Primary Care Unavailable Jackson Monk Consulting Unavailable Jackson Monk Admitting Unavailable Bert Greenwood Consulting Unavailable Ganta, Misbah Primary Care Unavailable Ganta, Misbah Referring Unavailable Friend, Marshal Attending Unavailable Alesha MINI LAB OPERATOR, Ani Referring Unavailable Alesha MINI LAB OPERATOR, Ani Attending Unavailable Ganta, Misbah Primary Care Unavailable Ganta, Misbah Primary Care Unavailable Joanne Kelly Attending Unavailable Ganta, Misbah Primary Care Unavailable Mo Velasco Attending Unavailable Ganta, Misbah Primary Care Unavailable Inman, Franco Attending Unavailable Ganta, Misbah Primary Care Unavailable Inman, Franco Attending Unavailable Ganta, Misbah Primary Care Unavailable Reodica, Leandro Attending Unavailable Reodica, Leandro Referring Unavailable Aleta Aguayo Attending Unavailable Timo, Bert Attending Unavailable Jackson Monk Attending Unavailable Sudhir Izquierdo Attending Unavailable Ganta, Misbah Primary Care Unavailable Pako Fernández Attending Unavailable Ganta, Misbah Primary Care Unavailable Alesha MINI LAB OPERATOR, Ani Attending Unavailable Ganta, Misbah Referring Unavailable Ganta, Misbah Primary Care Unavailable Ganta, Misbah Referring Unavailable Gabby Martinez Attending Unavailable Ganta , Dr. Anguiano Primary Care Physician Abi LOTT, Dr. Camacho Emergency Departmen t Physician Jolene MENENDEZ, Dr. Min Attending Physician Jolene MENENDEZ, Dr. Min Admitting Physician Jolene MENENDEZ, Dr. Min Nurse Practitioner Felecia MENENDEZ, Dr. Sudhir Monte Attending Physician Leigh MENENDEZ, Dr. Conde Nurse Practitioner Shannon MENENDEZ, Dr. Davis Nurse Practitioner Iron MENENDEZ, Dr. Frazier Nurse Practitioner Romulo LOTT, Dr. Sánchez Nurse Practitioner Lorenza MENENDEZ, Dr. Jackson Salas Nurse Practitioner [phone] Chris MENENDEZ, Dr. Rico Nurse Practitioner Kiko MENENDEZ, Dr. Harley Nurse Practitioner Robbie MENENDEZ, Dr. Urban Nurse Practitioner Randee MENENDEZ, Dr. Guillory Nurse Practitioner Silvio MENENDEZ, Dr. Kelley Nurse Practitioner [phone] Candido MENENDEZ, Dr. Sandoval Nurse Practitioner Brad MENENDEZ, Dr. Em Nurse Practitioner [phone] Fede MENENDEZ, Dr. Rodriguez Nurse Practitioner Unavail rivera Hurt MD, Dr. Ward Nurse Practitioner Conchita MENENDEZ, Dr. Booker Nurse Practitioner Yamel MENENDEZ, Dr. Johnson Nurse Practitioner Manuel MENENDEZ, Dr. Doan Nurse Practitioner Niru LOTT, Dr. Kathleen Nurse Practitioner Nancy MENENDEZ, Dr. Sánchez Nurse Practitioner Tr MENENDEZ, Dr. Gutierres Nurse Practitioner Sofia LOTT, Dr. Hurst Nurse Practitioner [phone] Jeferson MENENDEZ, Dr. Barreto Nurse Practitioner [phone] Billy MENENDEZ, Dr. Pal Nurse Practitioner Felecia MENENDEZ, Dr. Sudhir Monte Nurse Practitioner Romulo LOTT, Dr. Sánchez Attending Physician Ani Kramer Attending Physician Patricia MENENDEZ, Dr. Valencia Emergency Department Phys ician Dr. Jackson Monk DO Admitting Physician Ana Maria vailable oMnk DO, Dr. Paz Nurse Practitioner Unav ailable Timo MENENDEZ, Dr. Noel Nurse Practitioner Timo MENENDEZ, Dr. Noel Attending Physician Gabby Vela Attending Physician Robin MENENDEZ, Dr. Rubio Attending Physician Hermann Kelly MD, Dr. Rubio Emergency Department Physici an Faye Grijalva MD, Dr. Peguero Attending Physician Anjelica LOTT, Dr. Hassan Attending Physician Dr. Mo Velasco DO Emergency Department Physician Friend Dr. Marshal LOTT Attending Physician [phone] Marshal LOTT Nurse Practitioner Clyde MENENDEZ, Dr. Shaffer Emergency Department Physician Allergies Allergy Classification Reported Allergen(s) Allergy Type Date of Onset Reaction(s) Facility (20 sources) diazePAM; Translations: [DIAZEPAM] Drug Allergy 11-02-19 14 Other: See Comments [facility] Work Phone: (20 sources) HYDROcodone; Translations: [HYDROCODONE] Drug Allergy 08-02-20 20 Itching [facility] Work Phone: (20 sources) Penicillins; Translations: [PENICILLINS] Drug Allergy 07-07-20 06 Other: See Comments [facility] Work Phone: (20 sources) Penicillins Drug Allergy 07-07-20 06 Other: See Comments [facility] Work Phone: (20 sources) Penicillins Allergy to substance 01-17-20 22 [facility] (6 sources) Acetaminophen / HYDROcodone; Translations: [ACETAMINOPHEN-HYDR OCODONE] Drug Allergy 10-21-19 23 [facility] Work Phone: (5 sources) Penicillins Propensity to adverse reactions to drug 10-21-19 23 [facility] (1 source) Penicillin Drug Allergy 09-28-18 73 [facility] (20 sources) Sulfamethoxazole / Trimethoprim; Translations: [SULFAMETHOXAZOLE-T RIMETHOPRIM] Drug Allergy 11-29-19 23 [facility] Work Phone: (1 source) Piperacillin / tazobactam; Translations: [Zosyn] Drug Allergy [facility] Work Phone: (20 sources) Sulfamethoxazole Drug Allergy 07-08-20 23 Other [facility] (20 sources) Trimethoprim Drug Allergy 07-08-20 23 [facility] (20 sources) Clindamycin Drug Allergy 01-02-20 24 [facility] (20 sources) Penicillins Drug Allergy 07-07-20 06 Other: See Comments [facility] Work Phone: (1 source) Clindamycin Drug Allergy 07-10-20 [facility] (1 source) HYDROcodone Drug Allergy 07-10-20 [facility] (1 source) Penicillins Drug allergy (disorder) 07-10-20 [facility] (1 source) Sulfamethoxazole Drug Allergy 07-10-20 [facility] (1 source) Trimethoprim Drug Allergy 07-10-20 [facility] Medications Current Medications Medication Drug Class(es) Dates Sig (Normalized) Sig (Original) [id number] 200 actuat albuterol 0.09 mg/actuat metered dose [...] in structed four times daily as needed. ARIPiprazole 5 mg oral table t (20 [...] Comment on above: Home blood pressure monitor Rsaqtvkawp-Ftkjpklm-Hrtokckt ol (20 sources) Corticosteroid, beta2-Adrenergic Agonist Start: 04-10-2025 Start: 04-10-2025 End: 04-10-2025 Start: 12-23-2024 End: 04-10-2025 Start: 12-23-2024 celecoxib 200 mg oral capsule (2 sources) Nonsteroidal Anti-inflammatory Drug take 1 capsule by mouth twice daily celecoxib (CELEBREX) 200 mg capsule Take 200 mg by mouth two times a day. Active cholecalciferol 0.05 mg oral capsule (20 sources) Vitamin D Start: End: Start: 12-29-2018 Cholecalcifero l (Vitamin D3) 2,000 UNIT capsule Active 50 ug PO DAILY December 29, 2018 12:00am Start: 12-29-2018 End: 03-21-2022 take 50 ug by mouth once daily Cholecalciferol (Vitamin D3) Active 50 MCG PO DAILY December 29, 2018 12:00am Cholecalciferol (vitamin D3) 50 MCG (1999 UT) CAPS capsule Take 2,000 Units by mouth. 0 Suspended Comment on above: Take 1 capsule by mo ut once daily. TAKE 1 CAPSULE BY MO UTH DAILY ciprofloxacin 500 mg oral ta blet (1 source) Quinolone Antimicrobial Start: 07-07-2025 Start: 07-07-2025 COMPOUNDED PRESCRIPTION (20 sources) Start: 03-11-2018 COMPOUNDED PRE SCRIPTION Indications: Bacterial [...] mg/ml ophthalmic solution (1 source) Plasma Volume Campaign Assistant, Non-Standardized Chemical Allergen Start: 10-29-19 End: 11-28-19 take 1 drop(s) into the eye(s) four times daily Artificial Tears ophthalmic solution ; 1 drop(s) in each eye 4 times a day PRN.ADOD - 2/1Meds to Beds - .Patient Location [address] [address]26 Quantity: 1 Refills: 0 Ordered: [...] 06-02-2023 End: 06-30-2023 Start: 01-16-2022 End: 09-05-2022 Start: 01-22-2021 End: 03-29-2021 Comment on above: [...] above: Take 1 tablet by diya th one time only for 1 dose. 12 hr guaiFENesin 1200 mg / pseudoephedrine hydrochloride 120 mg extended release oral tablet (20 sources) alpha-Adrenergic Agonist Start: 11-07-2024 take 120-1200 mg by [...] TAKE 1 TABLET BY DIYA TH EVERY 12 HOURS for cold SYMPTOMS hydrOXYzine pamoate 25 mg or al capsule (20 sources) Antihistamine Start: 04-10-2025 Start: 11-07-2024 End: 04-16-2025 Start: 10-28-2022 End: 11-04-2022 take 1 tablet by mouth every six hours as needed hydrOXYzine hydrochloride 25 mg oral tablet ; 1 tab(s) orally every 6 hours, As needed, ITCHING-.ADOD - .10/28Meds to Beds .Patient Location [address] [address]PRN Reason: Anxiety Quantity: 32 Refills: [...] 19, 2019 12:00am September 26, 2019 12:38pm metoprolol tartrate 25 mg or al tablet [...] systolic blood pressure less than 100 mmHG. metroNIDAZOLE 500 mg oral tablet (1 source) Nitroimidazole Antimicrobial Start: 07-07-2025 Start: 07-07-2025 mirtazapine 45 mg oral table t (20 [...] - 10/29/22.Meds to Beds - .Patient Location [address] [address]26 Quantity: 14 Refills: 0 Ordered: [...] tablet (20 sources) Serotonin-3 Receptor Antagonist Start: 07-10-2025 Start: 02-26-2025 End: 07-04-2025 Start: 04-17-2022 End: 01-02-2025 take 1 tablet by mouth every six hours as needed for nausea and nausea ondansetron orally disintegrating (ZOFRAN ODT) 4 mg disintegrating tablet Indications: Nausea Take 1 tablet by mouth every 6 hours as needed for nausea/vomiting. 30 tablet 06/14/2025 Active Start: 06-19-2020 End: 04-17-2022 take 1 [...] (20 sources) Opioid Agonist Start: 5 Start: 07-06-2025 Start: 04-10-2025 End: 06-19-2025 Start: 12-24-2024 End: 03-14-2025 Start: 12-24-2024 End: 05-26-2025 Start: 12-19-2024 End: 12-22-2024 take 1 tablet by mouth every six hours as needed for pain traMADol (ULTRAM) 50 mg tablet Indications: Chronic recurrent pancreatitis (HCC) , Hospital discharge follow-up Take 1 tablet by mouth every 6 hours as needed for pain for up to 3 days. 6 tablet 12/19/2024 12/22/2024 Active Start: 12-12-2024 End: 03-14-2025 Start: 01-05-2024 End: 01-26-2024 Start: 08-22-2022 End: 01-26-2024 Start: 08-22-2022 End: 01-02-2024 Start: 08-22-2022 End: 01-28-2024 take 1 tablet [...] prescribed by Dr. Talamantes. (20 sources) Start: 07-04-2025 Start: 12-30-2024 Start: 12-23-2024 Start: 12-16-2024 End: 05-24-2025 Start: 12-16-2024 Start: 12-12-2024 End: 03-14-2025 Start: [...] 16, 2022 9:33am 20 ml albumin human, shelter 250 mg/ml injection (1 source) Human Serum [...] until breathing returns to target peak flow/parameters amLODIPine 10 mg oral tablet (20 sources) Dihydropyridine Calcium Channel [place] Start: 01-12-2024 End: 05-16-2025 Start: 01-05-2024 End: 03-13-2025 Start: 10-31-2022 End: 01-12-2024 amLODIPine Besyl ate 10 MG Oral Tablet Quantity: 0 Refills: 0 Ordered: 22-Dec-2022 DO Active Comment on above: Take 1 tablet by diya th once daily. amylase 929519 unt / lipase 75826 unt / protease 26535 unt delayed release oral capsule (20 sources) Start: 11-01-2022 take 72610-76580 capsules by mouth three times daily at mealtime Dbewnz-Muhdyoxd-Ckr lase (Creon) 24,000-76,000 -120,000 unit capsule,delayed release(DR/EC) Active 1 CAP PO 3 TIMES DAILY WITH MEALS November 01, 2022 1:00am Start: 03-26-2021 End: 01-26-2024 take 27760-37038 capsules by mouth twice daily Hcclas-Mitooebx-Fvqkrmk (Creon) 24,000-76,000 -120,000 unit capsule,delayed release(DR/EC) Discontinued 2 NMA PO TWICE A DAY November 01, 2022 1:00am January 26, 2024 11:52am Start: 12-10-2019 End: 12-19-2024 Start: 12-10-2019 Lipase-Proteas e-Amylase Active 3 EACH PO TWICE A DAY December 10, 2019 6:59am Comment on above: Take 3 capsules by m outh twice daily with meals. Take 3 capsules by m outh once daily. Deahars-Tkkptq-Udrdnfen (CREON 10 ORAL) (1 source) Imtasnu-Zozjvl-I rotea se (CREON 10 ORAL) Take 24,000 [...] Discontinued 2 PUFF INHALATION TWICE A DAY November 14, 2020 1:00am March 29, 2021 [...] 06-30-2023 escitalopram 10 mg oral tabl et (15 sources) Serotonin Reuptake Inhibitor Start: 04-16-2025 End: [...] injection once Flucelvax Quad (flu vac qs 2020-(6 ms up) CD) 60 mcg (15 mcg [...] 20, 2019 12:00am April 05, 2020 10:01am Nwxdezwqncz-Dwknauzpi-Uxcoxf er (20 sources) Anticholinergic, Corticosteroid, beta2-Adrenergic Agonist Start: 06-30-2023 End: 01-26-2024 Start: 06-30-2023 End: 01-26-2024 Dfxbathahnk-Uyirsnckl-Oqrnvw er (Trelegy Ellipta) 100-62.5-25 mcg blister with device Discontinued 1 NMA INHALATION Q24H June 30, 2023 12:00am January 26, 2024 11:27am Start: 06-30-2023 Fluticasone-Um eclidin-Vilanter (Trelegy Ellipta) 100-62.5-25 mcg blister with device Active 1 INH INHALATION Q24H June 30, 2023 12:00am Start: 09-10-2021 Fluticasone-Um eclidin-Vilanter (Trelegy Ellipta) 100-62.5-25 mcg blister with device Active 1 INH INHALATION DAILY September 10, 2021 9:54am Start: 09-10-2021 Fluticasone-Um eclidin-Vilanter (Trelegy Ellipta) 100-62.5-25 mcg blister with device Active 1 INH INHALATION DAILY 60 September 10, 2021 10:54am Start: 06-12-2021 End: 09-10-2021 Start: 06-12-2021 End: 09-10-2021 Iduzynqwlpy-Rrhdpywbz-Jbuykq er (Trelegy Ellipta) 100-62.5-25 mcg blister with device Discontinued 1 NMA INHALATION DAILY June 12, 2021 2:44am September 10, 2021 10:54am Start: 06-12-2021 End: 09-10-2021 Bbmcwyxsfvh-Kjqhsphnn-Hixfcc er (Trelegy Ellipta) 100-62.5-25 mcg blister with device Discontinued 1 INH INHALATION DAILY June 12, 2021 1:44am September 10, 2021 9:54am Start: 06-12-2021 End: 09-10-2021 Novuxnvcbgt-Fnvmxkqst-Ehivxz er (Trelegy Ellipta) 100-62.5-25 mcg blister with device Discontinued 1 INH INHALATION DAILY June 12, 2021 2:44am September 10, 2021 10:54am Start: 03-29-2021 End: 06-12-2021 Xihahcnfejy-Jdgffzqyg-Tdsgho er (Trelegy Ellipta) 100-62.5-25 mcg blister with device Discontinued 1 INH INHALATION DAILY 60 March 29, 2021 11:35am June 12, 2021 2:44am Start: 03-29-2021 End: 06-12-2021 Start: 03-29-2021 End: 06-12-2021 Azoabpbfaiu-Lhhcbjias-Wuihzf er (Trelegy Ellipta) 100-62.5-25 mcg blister with device Discontinued 1 NMA INHALATION DAILY 60 March 29, 2021 12:00am June 12, 2021 2:44am Start: 03-29-2021 End: 06-12-2021 Enxqkomkgjq-Cphxsplrz-Wtmvzh er (Trelegy Ellipta) 100-62.5-25 mcg blister with device Discontinued 1 INH INHALATION DAILY 60 March 28, 2021 11:00pm June 12, 2021 1:44am Start: 03-29-2021 End: 06-12-2021 Waevrnzrbpm-Nmwaseljr-Vzstoa er (Trelegy Ellipta) 100-62.5-25 mcg blister with device Discontinued 1 INH INHALATION DAILY 60 March 29, 2021 12:00am June 12, 2021 2:44am Start: 04-06-2020 End: 04-15-2023 ltqweuhicgk-ptvleeoge-fmnwyp er (TRELEGY ELLIPTA) 100-62.5-25 mcg inhalation powder [...] water and spit out; do not swallow Chvmdbbstch-Gbnbnvktb-Axyixk er (20 sources) Start: 08-29-2024 End: 12-23-2024 Start: 08-29-2024 Fluticasone-Um eclidin-Vilanter (Trelegy Ellipta) 200-62.5-25 mcg blister with device Active 1 NMA INHALATION DAILY 3 August 29, 2024 10:29am Start: 05-11-2024 End: 08-29-2024 Start: 05-11-2024 End: 08-29-2024 Hlamnyvrskv-Wfvlxdksd-Rzksof er (Trelegy Ellipta) 200-62.5-25 mcg blister with device Discontinued 1 NMA INHALATION DAILY 3 May 11, 2024 1:32pm August 29, 2024 10:29am Start: 01-26-2024 End: 05-11-2024 Start: 01-26-2024 End: 05-11-2024 Jejuuhazizr-Nqubzctwn-Apojnn er (Trelegy Ellipta) 200-62.5-25 mcg blister with [...] (20 sources) Anti-epileptic Agent Start: 02-08-2025 End: 05-24-2025 Start: 01-09-2025 End: 03-05-2025 guaiFENesin 20 mg/ml oral so lution (8 sources) Start: 12-16-2024 End: 05-24-2025 Start: 06-19-2020 End: 04-17-2022 take 2 tablets by mouth twice daily guaiFENesin (MUCINEX) 600 mg 12 hr tablet Take 2 tablets by mouth twice daily. 0 06/19/2020 04/17/2022 Discontinued (Discontinued by Patient) Comment on above: Take 2 tablets by mo ut twice daily. hydroCHLOROthiazide 12.5 mg oral capsule (20 sources) Thiazide Diuretic Start: 01-05-2024 End: 12-16-2024 Start: 01-05-2024 Hydrochlorothi azide 12.5 mg Capsule Active 12.5 mg PO WITH BREAKFAST January 05, 2024 12:00am Hold for SBP less than 130 mmHg Comment on above: TAKE 1 CAPSULE BY MO UTH EVERY DAY with breakfast for 30 days; [...] above: Take 1 capsule by mo ut four times daily as needed for diarrhea. [...] 1 tablet by diya th once daily. meloxicam 7.5 mg oral tablet (20 sources) Nonsteroidal Anti-inflammatory Drug Start: 12-23-2024 End: 05-24-2025 Start: 07-18-2022 End: 10-31-2022 take 15 mg [...] by diya th once daily. With food. naproxen 500 mg oral tablet (20 sources) [...] mcg/min and titrate per order parameters. nystatin [id number] unt/ml oral suspension (20 sources) Polyene Antifungal [...] M UCOUS MEM THREE TIMES A DAY 250 January [...] oral tablet (20 sources) Opioid Agonist Start: 05-10-2025 End: 05-24-2025 Start: 04-19-2025 End: 05-02-2025 Start: 04-19-2025 End: [...] - .10/28Meds to Beds - .Patient Location [address] 2026 Quantity: 16 Refills: 0 Ordered: [...] 2.5 ug by inhalation once daily Tiotropium [place] (Spiriva Respimat) 2.5 mcg/actuation mist Discontinued 2 NMA INHALATION daily November 14, 2020 1:00am March 29, 2021 11:33am administer at approximately the same time(s) each day Start: 11-14-2020 End: 03-29-2021 take 1 puff(s) by inhalation once daily Tiotropium [place] (Spiriva Respimat) 2.5 mcg/actuation mist Discontinued 2 [...] uncomplicated] Onset: 5 12-10-2019 Chronic Cardiac dysrhythmias (20 sources) Tachycardia; Translations: [Tachycardia, unspecified] Onset: 5 [...] Chronic Hypertension with complications and secondary hypertension (20 sources) Hypertensive urgency ; Translations: [Hypertensive urgency] [...] infection (2 sources) Viral gastroenteritis due to [place]-like agent; Translations: [Acute gastroenteropathy due to [place] agent] Onset: 5 04-10-2025 Episodic Malaise and [...] with vomiting, unspecified] Onset: 3 11-01-2022 Episodic Noninfectious gastroenteritis (2 sources) Noninfective gastroenteritis and colitis, unspecified; Translations: [Colitis] Onset: 5 07-07-2025 Episodic Nutritional deficiencies (1 source) Iron deficiency; [...] circulatory system] Episodic Other connective tissue disease (20 sources) Foot pain; Translations: [Pain in right foot] 01-19-2024 Episodic Other connective tissue disease (20 sources) Swelling of right foot; Translations: [Other specified soft tissue disorders] 06-10-2024 Episodic Other connective tissue disease (20 sources) H/O: back problem; Translations: [Personal history of other diseases of the musculoskeletal system and connective tissue] 09-26-2019 Episodic Other ear and sense organ disorders (1 source) Hearing loss of right ear; Translations: [Unspecified hearing loss, right ear] 05-31-2025 Chronic Other ear and sense organ disorders (1 source) Unspecified hearing loss, right ear; Translations: [Hearing loss of right ear, unspecified hearing loss type] Onset: 5 Chronic Other eye disorders (1 source) Entropion of right lower eyelid; Translations: [Entropion, unspecified] 10-28-2022 Episodic Other gastrointestinal disorders (20 sources) Irritable bowel syndrome; Translations: [Mixed irritable bowel syndrome] Onset: 7 08-27-2017 Chronic Other gastrointestinal disorders (1 source) Irritable bowel syndrome without diarrhea; Translations: [Irritable bowel syndrome, unspecified] Onset: Chronic Other gastrointestinal disorders (20 sources) Diarrhea; Translations: [Diarrhea, unspecified] 12-10-2019 Episodic Other gastrointestinal disorders (18 sources) History of pancreatitis; Translations: [Personal history of other diseases of digestive system] 12-24-2024 Episodic Other gastrointestinal disorders (20 sources) Dysphagia; Translations: [Dysphagia, unspecified] 12-19-2024 Episodic Other gastrointestinal disorders (16 sources) Loose stool; Translations: [Other fecal abnormalities] 04-26-2025 Episodic Other gastrointestinal disorders (1 source) Other fecal abnormalities; Translations: [Other fecal abnormalities] Onset: Episodic Other gastrointestinal disorders (1 source) Obstipation; Translations: [Constipation, unspecified] 07-07-2025 Episodic Other liver diseases (2 sources) High lipase level in serum; Translations: [Abnormal levels of other serum enzymes] 08-15-2024 Episodic Other lower respiratory disease (1 source) Lung mass; Translations: [Other nonspecific abnormal finding of lung field] Episodic Other lower respiratory disease (17 sources) Dyspnea; Translations: [Shortness of breath] 08-10-2024 Episodic Other lower respiratory disease (1 source) Productive cough ; Translations: [Cough with sputum] 11-07-2024 Episodic Other lower respiratory disease (20 sources) Nodule of lung; Translations: [Solitary pulmonary nodule] Onset: 5 12-04-2024 Episodic Other nervous system disorders (1 source) Neuropathy; Translations: [Polyneuropathy, unspecified] Chronic Other nervous system disorders (3 sources) Chronic pain; Translations: [Other chronic pain] 05-24-2025 Chronic Other nervous system disorders (1 source) Other chronic pain; Translations: [Chronic RUQ pain] Onset: Chronic Other nervous system disorders (3 sources) Paresthesia of lower extremity; Translations: [Anesthesia of skin] Episodic Other nervous system disorders (1 source) Paresthesia of foot ; Translations: [Anesthesia of skin] Episodic Other non-traumatic joint disorders (1 source) Multiple joint pain; Translations: [Pain in unspecified joint] Episodic Other non-traumatic joint disorders (20 sources) Swollen ankle region; Translations: [Effusion, right ankle] 01-19-2024 Episodic Other non-traumatic joint disorders (2 sources) Acute ankle pain; Translations: [Pain in right ankle and joints of right foot] 01-25-2024 Episodic Other nutritional; endocrine; and metabolic disorders (20 sources) Hypomagnesemia; Translations: [Hypomagnesemia] Onset: 5 03-16-2025 Chronic Other nutritional; endocrine; and metabolic disorders (20 sources) Hypophosphatemia; Translations: [Other disorders of phosphorus metabolism] Onset: 5 03-17-2025 Chronic Other nutritional; endocrine; and metabolic disorders (20 sources) Unintentional weight loss; Translations: [Abnormal weight loss] 02-01-2019 Episodic Other screening for suspected conditions (not mental disorders or infectious disease) (9 sources) Patient encounter status; Translations: [Encounter for screening mammogram for malignant neoplasm of breast] Episodic Other upper respiratory infections (20 sources) Sinusitis; Translations: [Chronic sinusitis, unspecified] 06-02-2023 Chronic Other upper respiratory infections (20 sources) Viral upper respiratory tract infection; Translations: [...] PSG in futu re. Residual codes; unclassified (20 sources) Device in situ; Translations: [Presence of other specified functional implants] 04-10-2025 Chronic Residual codes; unclassified (2 sources) Presence of other specified functional implants; Translations: [Presence of pancreatic duct stent] Onset: Chronic Residual codes; unclassified (20 sources) Noncompliance with medication regimen; Translations: [Patient's other noncompliance with medication regimen] 03-29-2021 Episodic Residual codes; unclassified (20 sources) Tobacco user; Translations: [Tobacco use] Onset: 3 02-01-2019 Episodic Residual codes; unclassified (20 sources) History of colonoscopy; Translations: [Other specified postprocedural states] 04-20-2019 Episodic Residual codes; unclassified (3 sources) Insomnia; Translations: [Insomnia, unspecified] 04-15-2023 Episodic Residual codes; unclassified (2 sources) Other specified postprocedural states; Translations: [Other specified postprocedural states] Onset: 5 Episodic Respiratory failure; insufficiency; arrest (adult) (20 sources) Chronic hypoxemic respiratory failure; Translations: [Chronic respiratory failure with hypoxia] Onset: 3 Chronic Respiratory failure; insufficiency; arrest (adult) (2 sources) Respiratory failure; insufficiency; arrest (adult) 10-27-2022 Screening and history of mental health and substance abuse codes (20 sources) Tobacco use and exposure - finding; Translations: [Personal history of nicotine dependence] Onset: 5 04-16-2025 Episodic Septicemia (except in labor) (20 sources) Septic shock; Translations: [Sepsis, unspecified organism] [...] 01-07-2019 Chronic Other aftercare (1 source) Other detention (current) drug therapy; Translations: [Other detention (current) drug therapy] Onset: 10-29-2022 Episodic Other [...] Translations: [Insomnia, unspecified type] Onset: 08-05-2024 Episodic Respiratory failure; insufficiency; arrest (adult) (20 sources) Acute respiratory failure; Translations: [Acute respiratory failure with hypoxia] Onset: 12-20-2024 12-04-2024 Episodic Spondylosis; intervertebral disc disorders; other back problems (20 sources) Lumbar disc prolapse with radiculopathy; Translations: [Intervertebral disc disorders with radiculopathy, lumbar region] Onset: 06-18-2012 06-18-2012 Episodic Unclassified (1 source) Patient encounter status 05-06-2025 Results Test Name Value Interpretation Reference Range Facility Abdomen/Pelvis W IV Cont ONL Yon 07-10-2025 Abdomen/Pelvis W IV Cont ONLY Normal [facility] Absolute lymphocyte countOrd ered By: Joanne Kelly on 07-10-2025 Lymphocytes Auto (Unsp spec) [#/Vol] 2.68 10*3/uL 0.83-4.51 [facility] Anion gap in Serum or Plasma Ordered By: Joanne Kelly on 07-10-2025 Anion gap [Moles/Vol] 8 mmol/L - [facility] Automated lymphocyte count a s percentage of total leukocytesOrdered By: Joanne Kelly on 07-10-2025 Lymphocytes/100 WBC Auto (Unsp spec) 16.7 % Low 19- [facility] BUN/creatinine ratioOrdered By: Joanne Kelly on 07-10-2025 Urea nitrogen/Creatinine [Mass ratio] 14.4 mg/mg - [facility] Basophil percentageOrdered B y: Joanne Kelly on 07-10-2025 Basophils/100 WBC (Bld) 0.6 % 0-1 [facility] Bilirubin Test strip Ql (U)O rdered By: Joanne Kelly on 07-10-2025 Bilirubin Ql (U) Negative Negative [facility] Bilirubin, totalOrdered By: Joanne Kelly on 07-10-2025 Bilirubin [Mass/Vol] 0.26 mg/dL 0.00-1.30 [facility] CBC W/Diff, Automatedon 06-28 Absolute Lymph 2.68 X10 3/uL Normal 0.83-4.51 [facility] Comment on above: Performed By: #### L 500.4050, L100.0100, L501.2450 ####[facility] [address] [place], [address] Absolute Neut 11.4 X10 3/uL High 2.0-7.7 [facility] Comment on above: Performed By: #### L 500.4050, L100.0100, [id number] ####[facility] [address] [place], [address] Basophils/100 WBC (Bld) 0.6 % Normal 0-1 [facility] Comment on above: Performed By: #### L 500.4050, L100.0100, [id number] ####[facility] [address] [place], [address] Eosinophils/100 WBC (Bld) 3.2 % Normal 0-5 [facility] Comment on above: Performed By: #### L 500.4050, L100.0100, [id number] ####[facility] [address] [place], [address] Erythrocyte distribution width (RBC) [Ratio] 13.7 % Normal 11.6-14.6 [facility] Comment on above: Performed By: #### L 500.4050, L100.0100, [id number] ####[facility] [address] [place], [address] Hematocrit (Bld) [Volume fraction] 38.4 % Normal 37-47 [facility] Comment on above: Performed By: #### L 500.4050, L100.0100, [id number] ####[facility] [address] [place], [address] Hemoglobin (Bld) [Mass/Vol] 11.8 g/dL Low 12.0-15.0 [facility] Comment on above: Performed By: #### L 500.4050, L100.0100, [id number] ####[facility] [address] [place], [address] IG% 0.900 Normal 0.0-0.9 [facility] Comment on above: Result Comment: IG% - Immature Granulocytes (promyelocytes, myelocytes andmetamyelocytes) > 1% indicates that a LEFT SHIFT is Present. Performed By: #### L 500.4050, L100.0100, [id number] ####[facility] [address] [place], [address] Lymphocytes/100 WBC (Bld) 16.7 % Low 19-41 [facility] Comment on above: Performed By: #### L 500.4050, L100.0100, [id number] ####[facility] [address] [place], [address] MCH (RBC) [Entitic mass] 26.9 pg Low 27.0-32.0 [facility] Comment on above: Performed By: #### L 500.4050, L100.0100, [id number] ####[facility] [address] [place], [address] MCHC (RBC) [Mass/Vol] 30.7 g/dL Low 32-36 [facility] Comment on above: Performed By: #### L 500.4050, L100.0100, [id number] ####[facility] [address] [place], [address] MCV (RBC) [Entitic vol] 87.7 fL Normal 81-99 [facility] Comment on above: Performed By: #### L 500.4050, L100.0100, [id number] ####[facility] [address] [place], [address] Monocytes/100 WBC (Bld) 7.5 % Normal 0-10 [facility] Comment on above: Performed By: #### L 500.4050, L100.0100, [id number] ####[facility] [address] [place], [address] Neutrophils/100 WBC (Bld) 71.1 % High 47-70 [facility] Comment on above: Performed By: #### L 500.4050, L100.0100, [id number] ####[facility] [address] [place], [address] Nucleated RBC (Bld) [#/Vol] 0 10*3/uL Normal 0-5 [facility] Comment on above: Performed By: #### L 500.4050, L100.0100, [id number] ####[facility] [address] [place], [address] Platelet mean volume (Bld) [Entitic vol] 9.6 fL Normal 6.2-12.0 [facility] Comment on above: Performed By: #### L 500.4050, L100.0100, [id number] ####[facility] [address] [place], [address] Platelets (Bld) [#/Vol] 332 10*3/uL Normal 150-450 [facility] Comment on above: Performed By: #### L 500.4050, L100.0100, L501.2450 ####[facility] [address] [place], [address] RBC (Bld) [#/Vol] 4.38 10*6/uL Normal 4.2-5.4 [facility] Comment on above: Performed By: #### L 500.4050, L100.0100, [id number] ####[facility] [address] [place], [address] RDW SD 43.8 fl Normal 35.1-43.9 [facility] Comment on above: Performed By: #### L 500.4050, L100.0100, [id number] ####[facility] [address] [place], [address] WBC (Bld) [#/Vol] 16.1 10*3/uL High 4.4-11.0 [facility] Comment on above: Performed By: #### L 500.4050, L100.0100, [id number] ####[facility] [address] [place], [address] Carbon dioxide, total [Moles /volume] in Central venous bloodOrdered By: Joanne Kelly on 07-10-2025 CO2 [Moles/Vol] 33.4 mmol/L High 21.0-32.0 [facility] Chloride assayOrdered By: Ronna Kelly on 07-10-2025 Chloride [Moles/Vol] 92 mmol/L Low 98-108 [facility] Comprehensive Metabolic Prof ilon 07-10-2025 Albumin [Mass/Vol] 3.7 g/dL Normal 3.4-4.8 [facility] Comment on above: Performed By: #### L 500.4050, L100.0100, [id number] ####[facility] [address] [place], [address] Albumin/Globulin [Mass ratio] 1.1 {ratio} Normal 0.9-2.4 [facility] Comment on above: Performed By: #### L 500.4050, L100.0100, [id number] ####[facility] [address] [place], [address] ALK PHOS 147 U/L High 35-104 [facility] Comment on above: Performed By: #### L 500.4050, L100.0100, [id number] ####[facility] [address] [place], [address] ALT [Catalytic activity/Vol] 27 U/L Normal <=34 [facility] Comment on above: Performed By: #### L 500.4050, L100.0100, [id number] ####[facility] [address] [place], [address] AST [Catalytic activity/Vol] 30 U/L Normal <=31 [facility] Comment on above: Performed By: #### L 500.4050, L100.0100, [id number] ####[facility] [address] [place], [address] Bilirubin [Mass/Vol] 0.26 mg/dL Normal 0.00-1.30 [facility] Comment on above: Performed By: #### L 500.4050, L100.0100, [id number] ####[facility] [address] [place], [address] BUN/CRE 14.4 RATIO Normal 10-20 [facility] Comment on above: Performed By: #### L 500.4050, L100.0100, [id number] ####[facility] [address] [place], [address] Calcium [Mass/Vol] 9.4 mg/dL Normal 7.6-11.0 [facility] Comment on above: Performed By: #### L 500.4050, L100.0100, [id number] ####[facility] [address] [place], [address] Chloride [Moles/Vol] 92 mmol/L Low 98-108 [facility] Comment on above: Performed By: #### L 500.4050, L100.0100, [id number] ####[facility] [address] [place], [address] CO2 [Moles/Vol] 33.4 mmol/L High 21.0-32.0 [facility] Comment on above: Performed By: #### L 500.4050, L100.0100, [id number] ####[facility] [address] [place], [address] Creatinine [Mass/Vol] 0.66 mg/dL Low 0.70-1.20 [facility] Comment on above: Performed By: #### L 500.4050, L100.0100, [id number] ####[facility] [address] [place], [address] ECRCL 73.11 ml/min Normal 50-250 [facility] Comment on above: Performed By: #### L 500.4050, L100.0100, [id number] ####[facility] [address] [place], [address] GAP 8 Normal 5-15 [facility] Comment on above: Performed By: #### L 500.4050, L100.0100, [id number] ####[facility] [facility] [address] [place], [address] GFR/1.73 sq M.predicted among non-blacks MDRD (S/P/Bld) [Vol rate/Area] 99 mL/min/{1.73_m2} Normal >60 [facility] Comment on above: Result Comment: mL/m in/1.73m2 CKD-EPI Creatinine Equation (2020) Performed By: #### L 500.4050, L100.0100, L501.2450 ####[facility] [address] [place], [address] Globulin (S) [Mass/Vol] 3.5 g/dL Normal 2.2-4.2 [facility] Comment on above: Performed By: #### L 500.4050, L100.0100, L501.2450 ####[facility] [address] [place], [address] Glucose [Mass/Vol] 95 mg/dL Normal 70-99 [facility] Comment on above: Performed By: #### L 500.4050, L100.0100, L501.2450 ####[facility] [address] [place], [address] Potassium [Moles/Vol] 4.2 mmol/L Normal 3.3-5.1 [facility] Comment on above: Performed By: #### L 500.4050, L100.0100, L501.2450 ####[facility] [address] [place], [address] Sodium [Moles/Vol] 134 mmol/L Normal 133-145 [facility] Comment on above: Performed By: #### L 500.4050, L100.0100, L501.2450 ####[facility] [address] [place], [address] T PROT 7.2 g/dL Normal 5.9-8.4 [facility] Comment on above: Performed By: #### L 500.4050, L100.0100, L501.2450 ####[facility] [address] [place], [address] Urea nitrogen [Mass/Vol] 9 mg/dL Normal 4-19 [facility] Comment on above: Performed By: #### L 500.4050, L100.0100, L501.2450 ####[facility] [address] [place], [address] Emergency Department Summary on 07-10-2025 Emergency Department Summary Normal [facility] Eosinophil percentageOrdered By: Joanne Bentoner on 07-10-2025 Eosinophils/100 WBC (Bld) 3.2 % 0-5 [facility] Erythrocyte distribution wid th ratioOrdered By: Joanne Robin on 07-10-2025 Erythrocyte distribution width (RBC) [Ratio] 13.7 % 11.6-14.6 [facility] Erythrocyte distribution wid th standard deviationOrdered By: Joanne Robin on 07-10-2025 Erythrocyte distribution width (RBC) [Ratio] 43.8 fl 35.1-43.9 [facility] Glomerular filtration rate ( GFR) estimation/1.73 sq m using serum, plasma, or whole bOrdered By: Joanne Robin on 07-10-2025 GFR/1.73 sq M.predicted among non-blacks MDRD (S/P/Bld) [Vol rate/Area] 99 mL/min/{1.73_m2} >60 [facility] Hematocrit Auto (Bld) [Volum e fraction]Ordered By: Joanne Robin on 07-10-2025 Hematocrit (Bld) [Volume fraction] 38.4 % 37-47 [facility] Hemoglobin measurementOrdere d By: Joanne Robin on 07-10-2025 Hemoglobin (Bld) [Mass/Vol] 11.8 g/dL Low 12.0-15.0 [facility] Immature granulocytes/100 WB C Auto (Bld)Ordered By: Joanne Kelly on 07-10-2025 Immature granulocytes/100 WBC (Bld) 0.900 % 0.0-0.9 [facility] Ketones Test strip Ql (U)Ord ered By: Joanne Kelly on 07-10-2025 Ketones Ql (U) Negative Negative [facility] Lipaseon 07-10-2025 Lipase [Catalytic activity/Vol] 77 U/L High 13-75 [facility] Comment on above: Result Comment: Jenny capellan note:LIPASE revised reference range effective 23.New Lipase methodology. Expected to produce lower valuesthan the previous assay method.NEW Reference Range: 13 - 75 U/L Performed By: #### L 500.4050, L100.0100, L501.2450 ####[facility] [address] [place], [address] MCV (mean corpuscular volume ) determinationOrdered By: Joanne Bentoner on 07-10-2025 MCV (RBC) [Entitic vol] 87.7 fL 81-99 [facility] Mean corpuscular hemoglobin (MCH) determinationOrdered By: Joanne Bentoner on 07-10-2025 MCH (RBC) [Entitic mass] 26.9 pg Low 27.0-32.0 [facility] Monocyte percentageOrdered B y: Joanne Bentoner on 07-10-2025 Monocytes/100 WBC (Bld) 7.5 % 0-10 [facility] Mucus LM Ql (Urine sed)Order ed By: Joanne Bentoner on 07-10-2025 Mucus Ql (Urine sed) 0 SEEN /hpf [facility] Neutrophil percentageOrdered By: Joanne Robin on 07-10-2025 Neutrophils/100 WBC (Bld) 71.1 % High 47-70 [facility] Nitrite Test strip Ql (U)Ord ered By: Joanne Bentoner on 07-10-2025 Nitrite Ql (U) Negative Negative [facility] No Panel InformationOrdered By: Joanne Bentoner on 07-10-2025 30 U/L <32 [facility] Platelet countOrdered By: Ronna harry Robin on 07-10-2025 Platelets (Bld) [#/Vol] 332 10*3/uL 150-450 [facility] Potassium measurement (mass/ volume)Ordered By: Joanne Robin on 07-10-2025 Potassium (Unsp spec) [Mass/Vol] 4.2 mmol/L 3.3-5.1 [facility] Protein Test strip Ql (U)Ord ered By: Joanne Bentoner on 07-10-2025 Protein Ql (U) 15 mg/dl High Negative [facility] RBC Auto (Bld) [#/Vol]Ordere d By: Joanneharry Kelly on 07-10-2025 RBC (Bld) [#/Vol] 4.38 10*6/uL 4.2-5.4 [facility] Serum creatinine measurement (mass/volume)Ordered By: Joanne Kelly on 07-10-2025 Creatinine [Mass/Vol] 0.66 mg/dL Low 0.70-1.20 [facility] Serum globulin measurementOr dered By: Joanne Kelly on 07-10-2025 Globulin (S) [Mass/Vol] 3.5 g/dL 2.2-4.2 [facility] Serum glucose measurement (m ass/volume)Ordered By: Joanne Kelly on 07-10-2025 Glucose [Mass/Vol] 95 mg/dL 70-99 [facility] Serum or plasma alanine pimentel otransferase (ALT) measurementOrdered By: Joanne Kelly on 07-10-2025 ALT [Catalytic activity/Vol] 27 U/L <35 [facility] Serum or plasma albumin esthela urement (mass/volume)Ordered By: Joanne Kelly on 07-10-2025 Albumin [Mass/Vol] 3.7 g/dL 3.4-4.8 [facility] Serum or plasma albumin/glob ulin mass ratioOrdered By: Joanne Kelly on 07-10-2025 Albumin/Globulin [Mass ratio] 1.1 {ratio} 0.9-2.4 [facility] Serum or plasma alkaline jose sphatase measurementOrdered By: Joanne Kelly on 07-10-2025 ALP [Catalytic activity/Vol] 147 U/L High 35-104 [facility] Serum or plasma calcium esthela urement (mass/volume)Ordered By: Joanne Kelly on 07-10-2025 Calcium [Mass/Vol] 9.4 mg/dL 7.6-11.0 [facility] Serum or plasma urea nitroge n measurement (mass/volume)Ordered By: Joanne Kelly on 07-10-2025 Urea nitrogen [Mass/Vol] 9 mg/dL 4-19 [facility] Sodium levelOrdered By: Mahamed Kelly on 07-10-2025 Sodium [Moles/Vol] 134 mmol/L 133-145 [facility] Squamous epithelial cells de tection in urine sediment by light microscopyOrdered By: Joanne Kelly on 07-10-2025 Epithelial cells.squamous LM Ql (Urine sed) 0-5 SEEN /hpf 5-10 [facility] Total proteinOrdered By: Brittnee Kelly on 07-10-2025 Protein [Mass/Vol] 7.2 g/dL 5.9-8.4 [facility] Transitional cells detection in urine sediment by light microscopyOrdered By: Joanne Kelly on 07-10-2025 Transitional cells LM Ql (Urine sed) 0-5 SEEN /hpf 0-5 [facility] Urinalysis, Completeon 07-10 EPI,SQUAMOUS 0-5 SEEN Normal 5-10 [facility] Comment on above: Order Comment: CLEAN CATCH Performed By: #### L 400.0001 ####[facility] [address] [place], [address] EPI,TRANSITION 0-5 SEEN Normal 0-5 [facility] Comment on above: Order Comment: CLEAN CATCH Performed By: #### L 400.0001 ####[facility] [address] [place], [address] RBC 0-5 SEEN Normal 0-5 [facility] Comment on above: Order Comment: CLEAN CATCH Performed By: #### L 400.0001 ####[facility] [address] [place], [address] WBC 0-5 SEEN Normal 0-5 [facility] Comment on above: Order Comment: CLEAN CATCH Performed By: #### L 400.0001 ####[facility] [address] [place], [address] BACTERIA 0 SEEN Normal None Seen [facility] Comment on above: Order Comment: CLEAN CATCH Performed By: #### L 400.0001 ####[facility] [address] [place], [address] Mucus Ql (Urine sed) 0 SEEN Normal [facility] Comment on above: Order Comment: CLEAN CATCH Performed By: #### L 400.0001 ####[facility] [address] [place], [address] Urine clarityOrdered By: Brittnee Kelly on 07-10-2025 Clarity (U) Clear Clear [facility] Urine color determinationOrd ered By: Joanne Kelly on 07-10-2025 Color (U) Yellow Yellow [facility] Urine glucose detectionOrder ed By: Joanne Kelly on 07-10-2025 Glucose Ql (U) Normal mg/dl Normal [facility] Urine leukocyte esterase det ection by dipstickOrdered By: Joanne Kelly on 07-10-2025 Leukocyte esterase Test strip Ql (U) 25 /ul High Negative [facility] Urine pHOrdered By: Joanne steele on 07-10-2025 pH (U) 6.0 [pH] 5.0 - 8.0 [facility] Urine sediment bacteria coun t by microscopy (number/high power field)Ordered By: Joanne Kelly on 07-10-2025 Bacteria LM.HPF (Urine sed) [#/Area] 0 /[HPF] None Seen [facility] Urine specific gravity measu rementOrdered By: Joanne Kelly on 07-10-2025 Specific gravity (U) [Rel density] 1.010 1.002-1.030 [facility] Urine urobilinogen measureme ntOrdered By: Joanne Kelly on 07-10-2025 Urobilinogen Ql (U) Normal mg/dl Normal [facility] White blood cell (WBC) count Ordered By: Joanne Kelly on 07-10-2025 WBC (Bld) [#/Vol] 16.1 10*3/uL High 4.4-11.0 [facility] White blood cell countOrdere d By: Joanne Kelly on 07-10-2025 White blood cell count 0-5 SEEN /hpf 0-5 [facility] Emergency Department Summary on 07-07-2025 Emergency Department Summary Normal [facility] Abdomen/Pelvis W IV Cont ONL Yon 07-06-2025 Abdomen/Pelvis W IV Cont ONLY Normal [facility] Absolute lymphocyte countOrd ered By: ED PROVIDER on 07-06-2025 Lymphocytes Auto (Unsp spec) [#/Vol] 1.36 10*3/uL 0.83-4.51 [facility] Anion gap in Serum or Plasma Ordered By: ED PROVIDER on 07-06-2025 Anion gap [Moles/Vol] 15 mmol/L 5-15 [facility] Automated lymphocyte count a s percentage of total leukocytesOrdered By: ED PROVIDER on 07-06-2025 Lymphocytes/100 WBC Auto (Unsp spec) 7.4 % Low 19-41 [facility] BUN/creatinine ratioOrdered By: ED PROVIDER on 07-06-2025 Urea nitrogen/Creatinine [Mass ratio] 8.0 mg/mg Low 10-20 [facility] Basophil percentageOrdered B y: ED PROVIDER on 07-06-2025 Basophils/100 WBC (Bld) 0.4 % 0-1 [facility] Bilirubin, totalOrdered By: ED PROVIDER on 07-06-2025 Bilirubin [Mass/Vol] 0.18 mg/dL 0.00-1.30 [facility] Blood manual differential co mment interpretation (narrative result)Ordered By: Edmund Tang on 07-06-2025 Manual differential comment Geovany (Bld) [Interp] SCANNED [facility] CBC W/Diff, Automatedon PLT EST ADEQUATE Normal ADEQ [facility] Comment on above: Performed By: #### L 100.0100, L501.2450, L500.4050 ####[facility] [address] [place], [place], [address] SMEAR COMMENT SCANNED Normal [facility] Comment on above: Performed By: #### L 100.0100, L501.2450, L500.4050 ####[facility] [address] [place], [place], [id number] Carbon dioxide, total [Moles /volume] in Central venous bloodOrdered By: ED PROVIDER on 07-06-2025 CO2 [Moles/Vol] 28.7 mmol/L 21.0-32.0 [facility] Chloride assayOrdered By: ED PROVIDER on 07-06-2025 Chloride [Moles/Vol] 88 mmol/L Low 98-108 [facility] Comprehensive Metabolic Prof ilon 07-06-2025 Albumin [Mass/Vol] 4.3 g/dL Normal 3.4-4.8 [facility] Comment on above: Performed By: #### L 100.0100, L501.2450, L500.4050 ####[facility] [address] [place], [address] Albumin/Globulin [Mass ratio] 1.1 {ratio} Normal 0.9-2.4 [facility] Comment on above: Performed By: #### L 100.0100, L501.2450, L500.4050 ####[facility] [address] [place], [address] ALK PHOS 151 U/L High 35-104 [facility] Comment on above: Performed By: #### L 100.0100, L501.2450, L500.4050 ####[facility] [address] [place], [address] ALT [Catalytic activity/Vol] 10 U/L Normal <=34 [facility] Comment on above: Performed By: #### L 100.0100, L501.2450, L500.4050 ####[facility] [address] [place], [address] AST [Catalytic activity/Vol] 24 U/L Normal <=31 [facility] Comment on above: Performed By: #### L 100.0100, L501.2450, L500.4050 ####[facility] [address] [place], [address] Bilirubin [Mass/Vol] 0.18 mg/dL Normal 0.00-1.30 [facility] Comment on above: Performed By: #### L 100.0100, L501.2450, L500.4050 ####[facility] [address] [place], [address] BUN/CRE 8.0 RATIO Low 10-20 [facility] Comment on above: Performed By: #### L 100.0100, L501.2450, L500.4050 ####[facility] [address] [place], [address] Calcium [Mass/Vol] 9.0 mg/dL Normal 7.6-11.0 [facility] Comment on above: Performed By: #### L 100.0100, L501.2450, L500.4050 ####[facility] [address] [place], [address] Chloride [Moles/Vol] 88 mmol/L Low 98-108 [facility] Comment on above: Performed By: #### L 100.0100, L501.2450, L500.4050 ####[facility] [address] [place], [address] CO2 [Moles/Vol] 28.7 mmol/L Normal 21.0-32.0 [facility] Comment on above: Performed By: #### L 100.0100, L501.2450, L500.4050 ####[facility] [address] [place], [address] Creatinine [Mass/Vol] 0.79 mg/dL Normal 0.70-1.20 [facility] Comment on above: Performed By: #### L 100.0100, L501.2450, L500.4050 ####[facility] [address] [place], [address] ECRCL 61.08 ml/min Normal 50-250 [facility] Comment on above: Performed By: #### L 100.0100, L501.2450, L500.4050 ####[facility] [address] [place], [address] GAP 15 Normal 5-15 [facility] Comment on above: Performed By: #### L 100.0100, L501.2450, L500.4050 ####[facility] [address] [place], [address] GFR/1.73 sq M.predicted among non-blacks MDRD (S/P/Bld) [Vol rate/Area] 85 mL/min/{1.73_m2} Normal >60 [facility] Comment on above: Result Comment: mL/m in/1.73m2 CKD-EPI Creatinine Equation (2020) Performed By: #### L 100.0100, L501.2450, L500.4050 ####[facility] [address] [place], [address] Globulin (S) [Mass/Vol] 3.8 g/dL Normal 2.2-4.2 [facility] Comment on above: Performed By: #### L 100.0100, L501.2450, L500.4050 ####[facility] [address] [place], [address] Glucose [Mass/Vol] 254 mg/dL High 70-99 [facility] Comment on above: Performed By: #### L 100.0100, L501.2450, L500.4050 ####[facility] [address] [place], [address] Potassium [Moles/Vol] 3.9 mmol/L Normal 3.3-5.1 [facility] Comment on above: Performed By: #### L 100.0100, L501.2450, L500.4050 ####[facility] [address] [place], [address] Sodium [Moles/Vol] 132 mmol/L Low 133-145 [facility] Comment on above: Performed By: #### L 100.0100, L501.2450, L500.4050 ####[facility] [address] [place], [address] T PROT 8.1 g/dL Normal 5.9-8.4 [facility] Comment on above: Performed By: #### L 100.0100, L501.2450, L500.4050 ####[facility] [address] [place], [address] Urea nitrogen [Mass/Vol] 6 mg/dL Normal 4-19 [facility] Comment on above: Performed By: #### L 100.0100, L501.2450, L500.4050 ####[facility] [address] [place], [address] ERCP Biliary/Pancreason ERCP Biliary/Pancreas Normal [facility] ERCP Reporton 07-06-2025 ERCP Report Normal [facility] Eosinophil percentageOrdered By: ED PROVIDER on 07-06-2025 Eosinophils/100 WBC (Bld) 18.3 % High 0-5 [facility] Erythrocyte distribution wid th ratioOrdered By: ED PROVIDER on 07-06-2025 Erythrocyte distribution width (RBC) [Ratio] 13.6 % 11.6-14.6 [facility] Erythrocyte distribution wid th standard deviationOrdered By: ED PROVIDER on 07-06-2025 Erythrocyte distribution width (RBC) [Ratio] 42.5 fl 35.1-43.9 [facility] Glomerular filtration rate ( GFR) estimation/1.73 sq m using serum, plasma, or whole bOrdered By: ED PROVIDER on 07-06-2025 GFR/1.73 sq M.predicted among non-blacks MDRD (S/P/Bld) [Vol rate/Area] 85 mL/min/{1.73_m2} >60 [facility] Hematocrit Auto (Bld) [Volum e fraction]Ordered By: ED PROVIDER on 07-06-2025 Hematocrit (Bld) [Volume fraction] 39.3 % 37-47 [facility] Hemoglobin measurementOrdere d By: ED PROVIDER on 07-06-2025 Hemoglobin (Bld) [Mass/Vol] 12.2 g/dL 12.0-15.0 [facility] Immature granulocytes/100 WB C Auto (Bld)Ordered By: ED PROVIDER on 07-06-2025 Immature granulocytes/100 WBC (Bld) 0.500 % 0.0-0.9 [facility] Lipaseon 07-06-2025 Lipase [Catalytic activity/Vol] 83 U/L High 13-75 [facility] Comment on above: Result Comment: Jenny capellan note:LIPASE revised reference range effective 23.New Lipase methodology. Expected to produce lower valuesthan the previous assay method.NEW Reference Range: 13 - 75 U/L Performed By: #### L 100.0100, L501.2450, L500.4050 ####[facility] [address] [place], [address] MCV (mean corpuscular volume ) determinationOrdered By: ED PROVIDER on 07-06-2025 MCV (RBC) [Entitic vol] 85.4 fL 81-99 [facility] MR/OP.PROVATon 07-06-2025 MR/OP.PROVAT Normal [facility] MR/POSTOP.ANEon 07-06-2025 MR/POSTOP.ANE Normal [facility] MR/WKEVEFNF7io 07-06-2025 MR/POSTOPAN2 Normal [facility] Mean corpuscular hemoglobin (MCH) determinationOrdered By: ED PROVIDER on 07-06-2025 MCH (RBC) [Entitic mass] 26.5 pg Low 27.0-32.0 [facility] Monocyte percentageOrdered B y: ED PROVIDER on 07-06-2025 Monocytes/100 WBC (Bld) 1.1 % 0-10 [facility] Neutrophil percentageOrdered By: ED PROVIDER on 07-06-2025 Neutrophils/100 WBC (Bld) 72.3 % High 47-70 [facility] No Panel InformationOrdered By: ED PROVIDER on 07-06-2025 24 U/L <32 [facility] O.R. Fluoro for C-Les 10-0 -2024 O.R. Fluoro for C-Arm Normal [facility] Platelet countOrdered By: ED PROVIDER on 07-06-2025 Platelets (Bld) [#/Vol] 388 10*3/uL 150-450 [facility] Platelet estimateOrdered By: Edmund Tang on 07-06-2025 Platelets LM Ql (Bld) ADEQUATE ADEQ [facility] Potassium measurement (mass/ volume)Ordered By: ED PROVIDER on 07-06-2025 Potassium (Unsp spec) [Mass/Vol] 3.9 mmol/L 3.3-5.1 [facility] RBC Auto (Bld) [#/Vol]Ordere d By: ED PROVIDER on 07-06-2025 RBC (Bld) [#/Vol] 4.60 10*6/uL 4.2-5.4 [facility] Serum creatinine measurement (mass/volume)Ordered By: ED PROVIDER on 07-06-2025 Creatinine [Mass/Vol] 0.79 mg/dL 0.70-1.20 [facility] Serum globulin measurementOr dered By: ED PROVIDER on 07-06-2025 Globulin (S) [Mass/Vol] 3.8 g/dL 2.2-4.2 [facility] Serum glucose measurement (m ass/volume)Ordered By: ED PROVIDER on 07-06-2025 Glucose [Mass/Vol] 254 mg/dL High 70-99 [facility] Serum or plasma alanine pimentel otransferase (ALT) measurementOrdered By: ED PROVIDER on 07-06-2025 ALT [Catalytic activity/Vol] 10 U/L <35 [facility] Serum or plasma albumin esthela urement (mass/volume)Ordered By: ED PROVIDER on 07-06-2025 Albumin [Mass/Vol] 4.3 g/dL 3.4-4.8 [facility] Serum or plasma albumin/glob ulin mass ratioOrdered By: ED PROVIDER on 07-06-2025 Albumin/Globulin [Mass ratio] 1.1 {ratio} 0.9-2.4 [facility] Serum or plasma alkaline jose sphatase measurementOrdered By: ED PROVIDER on 07-06-2025 ALP [Catalytic activity/Vol] 151 U/L High 35-104 [facility] Serum or plasma calcium esthela urement (mass/volume)Ordered By: ED PROVIDER on 07-06-2025 Calcium [Mass/Vol] 9.0 mg/dL 7.6-11.0 [facility] Serum or plasma urea nitroge n measurement (mass/volume)Ordered By: ED PROVIDER on 07-06-2025 Urea nitrogen [Mass/Vol] 6 mg/dL 4-19 [facility] Sodium levelOrdered By: ED Maritza SMITHDER on 07-06-2025 Sodium [Moles/Vol] 132 mmol/L Low 133-145 [facility] Total proteinOrdered By: ED PROVIDER on 07-06-2025 Protein [Mass/Vol] 8.1 g/dL 5.9-8.4 [facility] White blood cell (WBC) count Ordered By: ED PROVIDER on 07-06-2025 WBC (Bld) [#/Vol] 18.4 10*3/uL High 4.4-11.0 [facility] MR/PAT.ANEon 07-04-2025 MR/PAT.ANE Normal [facility] NURSING PROGon 07-03-2025 NURSING PROG HNO ID: [id number] Author: JAELYN KOTHARI RN Service: ? Author Type: Registered Nurse Type: Nursing Progress Note Filed: 07/03/2025 16:18 Note Text: Attempted to reach the patient at the contact number that they provided [phone] (home) . Unable to speak with patient or leave a voicemail.The following information was sent to their my chart: Date of procedure, location and report time A message was left informing the patient/patient event representative they must have a responsible adult [...] Number to call with questions or concerns [phone] Number to call to cancel their procedure [phone] Jaelyn Kothari RN [facility] CNOVon 05-31-2025 CNOV Office Visit (INTMWS ) -------- GRACIE BANUELOS ([id number]) 1965 F Date Time Provider Department 05/31/25 10:40 AM SOILA EASTON During your visit today, we recorded the following information about you: Pulse Respiration Blood pressure Weight 78/minute 16/minute 128/80 56.2 kg Soila Easton APRN.CNP 05/31/2025 1:42 PM Signed CC: Patient presents with: Recheck: 1 month follow up HPI Gracie Banuelos is a 60 year old female who presents today for follow up on chronic pancreatitis, COPD, and pain., Recording using [employer] software for draft documentation of the visit was discussed with the patient/authorized event representative; all questions welcomed and answered. Patient/authorized event representative agreed to proceed Chronic Pancreatitis: - Gracie Banuelos was hospitalized in March for pancreatitis; stent placed, still in situ. - Followed by Dr. Segura at [facility]; stent removal planned for June. - Seen by Dr. Segura's PA, Daysi, with next appointment in June. - Hospitalized four times since March for double pneumonia, bronchitis, and pancreatitis. - Gracie denies emesis, fevers, or chills. - Experiencing significant chronic upper abdominal pain. - Pain management by Dr. Harmon; currently taking Celebrex for two weeks with no relief. - Previously on tramadol and oxycodone, which provided pain relief. - Unable to sleep due to pain; taking Tylenol with Celebrex. - Gabapentin discontinued due to diarrhea. - Difficulty eating due to pain; consuming two meals per day. - Avoids milk and cheese due to digestive issues. COPD: - At baseline; requires 5L O2, reduced to 3L indoors and if at rest. - Uses air conditioning at home; landlord responsible for changing filters. - Coughing up white sputum; performing breathing treatments 2-3 times daily. - Quit smoking for a month but resumed due to stress. - Ventilated for two days in January due to fluid overload post-surgery. - wheezing and dyspnea at baseline Ear Discomfort: - Gracie noticed hearing loss and increased volume in speech over the past few weeks. - Suspects excessive cerumen accumulation. - Denies sinus pressure, headaches, fever, chills, or ear drainage. REVIEW OF SYSTEMS General: no fevers, no chills, no night sweats, no recurrent infections, no change in appetite, no change in energy, and no significant changes in weight Cardiovascular: no chest pain, no chest pressure, [...] Stage 3 severe COPD by GOLD classification ([facility]) 2018 Tobacco use greater than [...] 06/14/2021 TUBAL LIGATION HX 1986 ALLERGIES Bactrim [Sulfamethoxazole-Trimet hoprim], Hydrocodone, Penicillins, and Valium [Diazepam] MEDICATIONS celecoxib (CELEBREX) 200 mg capsule Take 200 mg by mouth two times a day. amLODIPine (NORVASC) 5 mg tablet Take 1 tablet by mouth once daily. albuterol HFA (VENTOLIN HFA) 90 mcg/actuation inhaler Inhale 2 puffs by mouth into the lungs four times a day as needed. hydrOXYzine pamoate (VISTARIL) 25 mg capsule Take 1 capsule by mouth d (more content not included)... Normal [facility] L3410.9992on 05-30-2025 [facility] [place]. COMMENT Normal . [facility] Comment on above: Order Comment: [id number] 0MED TOX UR RMT Result Comment: Test Ordered: [id number] S28-Qgnroc+GG3Cvsgafeopycc Screen, Urine Negative ng/mL UI Reference Range: Hilipd=697Rbbxzqtgbeg test includes Amphetamine and Methamphetamine.Barbiturates Negative ng/mL UI Reference Range: Ohikic=861Psrqielewhsgcpd Negative ng/mL UI Reference Range: Prvabq=032Hpsmnjd (Metab.), Urine Negative ng/mL UI Reference Range: Pzltyl=360Ltdtpix Negative ng/mL UI Reference Range: Owvsxm=887Sduaoz test includes Codeine, Morphine, Hydromorphone, Hydrocodone.6-Acetylmorphine, Urine Negative ng/mL UI Reference Range: Cutoff=10Oxycodone/Oxymorphone, Urine Negative ng/mL UI Reference Range: Kwkhtq=601Apbg includes Oxycodone and OxymorphonePCP, Urine Negative ng/mL UI Reference Range: Cutoff=25Methadone Screen, Urine Negative ng/mL UI Reference Range: Ffhnxg=817Inlkfwougffe, Urine Negative ng/mL UI Reference Range: Uebxhd=153Iuvpkktm, Urine Negative ng/mL UI Reference Range: Cutoff=2.0Test includes Fentanyl and NorfentanylThis test was developed and its performance characteristicsdetermined by [facility]. It has not been cleared orapproved by the Food and Drug Administration.Tramadol Note: ng/mL UI See Final Results Reference Range: Haakld=096Wswztsad Positive [A ] UI Reference Range: Eczkzr=219Ulhwimha Conf, MS, UR 713 ng/mL UI Reference Range: Xauovh=147Ayltkguondwle, Urine Negative ng/mL UI Reference Range: Cutoff=10Creatinine, Urine 26.4 mg/dL UI Reference Range: 20.0-300.0pH, Urine 7.3 UI Reference Range: 4.5-8.9Performed at: UI - [facility] [id number] [facility], [facility] [id number] Director: Garrett Harrell PhD, Phone: [phone] at: [facility] [address] [id number] Director: Tj Mendoza PhD, Phone: [phone] Performed By: #### L 505.5000, L3410.9992 ####[facility] [address] [place], [place], [id number] Amphetamine detection with 1 000 ng/mL as cutoffOrdered By: Sudhir Grijalva on 05-24-2025 Amphetamines Screen method >1000 ng/mL Ql (U) Negative < 200 ng/mL [facility] Emergency Department Summary on 05-24-2025 Emergency Department Summary Normal [facility] Lipid 1996 panelon Cholesterol [Mass/Vol] 179 mg/dL Normal <200 [facility] Comment on above: Order Comment: Reggie fajardo Type: BLOOD SPECIMEN Ordering Facility: [facility] Address: [address] [place] [address] Result Comment: <200 mg/dL, Desirable 200-239 mg/dL, Borderline high >239 mg/dL, High Performed By: #### 2 4331-1 #### [facility] CLIA [id number] [address] [place] [address] [place] Cholesterol in HDL [Mass/Vol] 51 mg/dL Normal >39 [facility] Comment on above: Order Comment: Reggie fajardo Type: BLOOD SPECIMEN Ordering Facility: [facility] Address: [address] [place] [address] Result Comment: 40-5 9 mg/dL, Acceptable >59 mg/dL, High: Negative risk factor for coronary heart disease <40 mg/dL, Low: Positive risk factor for coronary heart disease Performed By: #### 2 4331-1 #### [facility] CLIA [id number] [address] [place] [address] [place] Cholesterol in LDL [Mass/Vol] 97 mg/dL Normal <100 [facility] Comment on above: Order Comment: Reggie fajardo Type: BLOOD SPECIMEN Ordering Facility: [facility] Address: [address] [place] [address] Result Comment: <100 mg/dL, Optimal 100-129 mg/dL, Near optimal/above optimal 130-159 mg/dL, Borderline high 160-189 mg/dL, High >189 mg/dL, Very high Secondary prevention optimal LDL Cholesterol levels are recommended to be <70 mg/dL LDL cholesterol is calculated using the Pineda-NIH equation. Performed By: #### 2 4331-1 #### [facility] CLIA [id number] [address] [place] [address] [place] Cholesterol in LDL/Cholesterol in HDL [Mass ratio] 1.90 {ratio} Normal <2.54 [facility] Comment on above: Order Comment: Reggie fajardo Type: BLOOD SPECIMEN Ordering Facility: [facility] Address: [address] [place] [address] Result Comment: Teri regan: 1. National Cholesterol Education Program ATP III Guideline At-A-Glance Quick Desk Reference: National Heart, Lung, and Blood [place]. National Institutes of Health. 2001: NIH Publication No. 01-3305. 2. An International Atherosclerosis Society position paper: global recommendations for the management of dyslipidemia: executive summary, Atherosclerosis. 2014: 232(2):410-413. Performed By: #### 2 4331-1 #### [facility] CLIA [id number] [address] [place] [address] [place] Cholesterol in VLDL [Mass/Vol] 29 mg/dL Normal <30 [facility] Comment on above: Order Comment: Reggie tana Type: BLOOD SPECIMEN Ordering Facility: [facility] Address: [address] [place] [address] Performed By: #### 2 4331-1 #### [facility] CLIA [id number] [address] [place] [address] [place] Cholesterol non HDL [Mass/Vol] 128 mg/dL Normal <130 [facility] Comment on above: Order Comment: Reggie tana Type: BLOOD SPECIMEN Ordering Facility: [facility] Address: [address] [place] [address] Result Comment: <130 mg/dL, Optimal 130-159 mg/dL, Near optimal/above optimal 160-189 mg/dL, Borderline high 190-219 mg/dL, High >219 mg/dL, Very high Secondary prevention optimal non HDL Cholesterol levels are recommended to be <100 mg/dL Performed By: #### 2 4331-1 #### [facility] CLIA [id number] [address] [place] [address] [place] Cholesterol.total/Chol esterol in HDL [Mass ratio] 3.51 {ratio} Normal <5.10 [facility] Comment on above: Order Comment: Speci men Type: BLOOD SPECIMEN Ordering Facility: [facility] Address: [address] [place] [address] Performed By: #### 2 4331-1 #### [facility] CLIA [id number] [address] [place] [address] [place] [facility] FASTING TIME 12 hrs Normal [facility] Comment on above: Order Comment: Speci men Type: BLOOD SPECIMEN Ordering Facility: [facility] Address: [address] [place] [address] Performed By: #### 2 4331-1 #### [facility] CLIA [id number] [address] [place] [address] [place] Triglyceride [Mass/Vol] 178 mg/dL High <150 [facility] Comment on above: Order Comment: Speci men Type: BLOOD SPECIMEN Ordering Facility: [facility] Address: [address] [place] [address] Result Comment: <150 mg/dL, Normal 150-199 mg/dL, Borderline high 200-499 mg/dL, High >499 mg/dL, Very high Performed By: #### 2 4331-1 #### [facility] CLIA [id number] [address] [place], [place] [address] [place] No Panel InformationOrdered By: Sudhir Grijalva on 05-24-2025 Negative < 200 ng/mL [facility] Pulmonary Visit Reporton Pulmonary Visit Report Normal [facility] Screening urine fentanyl samir surementOrdered By: Sudhir Grijalva on 05-24-2025 fentaNYL Screen Ql (U) Negative <5 ng/mL [facility] Urine Drug Screen (VISTA)on 05-24-2025 AMPHETAMINES Negative Normal <1000 ng/mL [facility] Comment on above: Order Comment: UNK Performed By: #### L 505.5000, L3410.9992 ####[facility] [address] [facility] [address] BARBITIURATES Negative Normal < 200 ng/mL [facility] Comment on above: Order Comment: UNK Performed By: #### L 505.5000, L3410.9992 ####[facility] [address] [facility] [address] BENZODIAZIPINE Positive Normal < 200 ng/mL [facility] Comment on above: Order Comment: UNK Result Comment: If c onfirmation testing is needed, a separate order will berequired to send out testing to the reference laboratory. Performed By: #### L 505.5000, L3410.9992 ####[facility] [address] [place], [address] BUP Ur Drug Scr Negative Normal < 200 ng/mL [facility] Comment on above: Order Comment: UNK Performed By: #### L 505.5000, L3410.9992 ####[facility] [address] [facility] [address] COCAINE Negative Normal < 300 ng/mL [facility] Comment on above: Order Comment: UNK Performed By: #### L 505.5000, L3410.9992 ####[facility] [address] [place], [address] Fentanyl Negative Normal <5 ng/mL [facility] Comment on above: Order Comment: UNK Result Comment: CONF IRMATORY TESTING FOR ALL POSITIVE URINE DRUG SCREENRESULTS WILL ONLY BE SENT OUT UPON PHYSICIAN ORDER.Jessica Pro Urine Drug Screen methods provide only preliminaryanalytical test results. A more specific alternate chemicalmethod must be used in order to obtain a confirmedanalytical result. Gas chromatography/mass spectrometery(GC/MS) is the preferred confirmatory method. Clinicalconsideration and professional judgement should be appliedto any drug of abuse test result, particularly whenpreliminary positive results are used.Urine TCA testing must be ordered separately. Use testmnemonic: UTCA Performed By: #### L 505.5000, L3410.9992 ####[facility] [address] [place] [address] METHADONE Negative Normal < 300 ng/mL [facility] Comment on above: Order Comment: UNK Performed By: #### L 505.5000, L3410.9992 ####[facility] [address] [place] [address] OPIATES Negative Normal < 300 ng/mL [facility] Comment on above: Order Comment: UNK Performed By: #### L 505.5000, L3410.9992 ####[facility] [address] [place] [address] OXYCODONE Negative Normal < 100 ng/mL [facility] Comment on above: Order Comment: UNK Performed By: #### L 505.5000, L3410.9992 ####[facility] [address] [place] [address] PCP Negative Normal < 25 ng/mL [facility] Comment on above: Order Comment: UNK Performed By: #### L 505.5000, L3410.9992 ####[facility] [address] [place] [address] THC Negative Normal < 50 ng/mL [facility] Comment on above: Order Comment: UNK Performed By: #### L 505.5000, L3410.9992 ####[facility] [address] [place], [address] Urine phencyclidine (PCP) de tectionOrdered By: Sudhir Grijalva on 05-24-2025 Phencyclidine Ql (U) Negative < 25 ng/mL [facility] US ARM ARTERIAL UNL VAS LABo n 05-18-2025 US ARM ARTERIAL [facility]L VAS LAB Non-Invasive Vascular Laboratory [facility] Upper Extremity Arterial Duplex Bilateral/Complete Date of service/time: 05/18/2025 2:08:15 PM Name: MRS. GRACIE BANUELOS Date of : 1965 Age: 60 years Gender: F Clinical Indication Blood pressure difference between arms. TECHNIQUE -------- An arterial duplex ultrasound examination was performed, including grayscale imaging and color Doppler and spectral Doppler examination of the below mentioned arteries. FINDINGS -------- Right systolic blood pressure: 134 mmHg Left systolic blood pressure: 88 mmHg LEFT SIDE Subclavian artery proximal: PSV: 107 cm/s. EDV: 19 cm/s. Monophasic, intermediate resistive waveform. Subclavian artery mid: PSV: 78 cm/s. EDV: 13 cm/s. Monophasic, intermediate resistive waveform. Subclavian artery distal: PSV: 71 cm/s. EDV: 10 cm/s. Monophasic, intermediate resistive waveform. Axillary artery proximal: PSV: 54 cm/s. EDV: 12 cm/s. Monophasic, intermediate resistive waveform. Axillary artery mid: PSV: 77 cm/s. EDV: 15 cm/s. Monophasic, intermediate resistive waveform. Axillary artery distal: PSV: 67 cm/s. EDV: 18 cm/s. Monophasic, intermediate resistive waveform. Brachial artery proximal: PSV: 55 cm/s. EDV: 11 cm/s. Monophasic, intermediate resistive waveform. Brachial artery mid: PSV: 49 cm/s. EDV: 9 cm/s. Monophasic, intermediate resistive waveform. Brachial artery distal: PSV: 49 cm/s. EDV: 10 cm/s. Monophasic, intermediate resistive waveform. Radial artery proximal: PSV: 38 cm/s. EDV: 9 cm/s. Monophasic, intermediate resistive waveform. Radial artery mid: PSV: 37 cm/s. EDV: 9 cm/s. Monophasic, intermediate resistive waveform. Radial artery distal: PSV: 31 cm/s. EDV: 9 cm/s. Monophasic, intermediate resistive waveform. Ulnar artery proximal: PSV: 34 cm/s. EDV: 8 cm/s. Monophasic, intermediate resistive waveform. Ulnar artery mid: PSV: 48 cm/s. EDV: 12 cm/s. Monophasic, intermediate resistive waveform. Ulnar artery distal: PSV: 37 cm/s. EDV: 9 cm/s. Monophasic, intermediate resistive waveform. IMPRESSION Left brachial blood pressure lower than right, suggest further evaluation to exclude subclavian or axillary disease. LEFT SIDE Subclavian artery : patent . Mild plaque noted at proximal. Abnormal, monophasic waveform noted suggesting a more proximal stenosis. May wish other means of evaluation. Axillary artery, Brachial artery, Radial artery and Ulnar artery : patent . Monophasic waveform noted throughout. Technologist: Keerthi Shah RVT, RDDC Ordering physician: MISBAH ELKINS Interpreting physician: GLADIS Byrne DO Final CC [facility] : [id number] ID See Link below for Image Normal [facility] US CAROTID ARTERIES LUZMA VAS LABon 05-18-2025 US CAROTID ARTERIES [facility] LAB Non-Invasive Vascular Laboratory [facility] Carotid Duplex Bilateral/Complete Date of service/time: 05/18/2025 1:39:39 PM Name: MRS. GRACIE BANUELOS Date of : 1965 Age: 60 years Gender: F Clinical Indication Follow-up study on a patient with known carotid disease. TECHNIQUE -------- A carotid duplex ultrasound examination was performed, including grayscale imaging and color Doppler and spectral Doppler examination of the below mentioned arteries. FINDINGS -------- RIGHT SIDE Common carotid artery: Origin: PSV: 117 cm/s. EDV: 28 cm/s. Proximal: PSV: 94 cm/s. EDV: 22 cm/s. Mid: PSV: 90 cm/s. EDV: 25 cm/s. Distal: PSV: 98 cm/s. EDV: 16 cm/s. Mild heterogeneous plaque from mid to distal. Internal carotid artery: Origin: PSV: 88 cm/s. EDV: 27 cm/s. Proximal: PSV: 103 cm/s. EDV: 32 cm/s. Mid: PSV: 106 cm/s. EDV: 36 cm/s. Distal: PSV: 114 cm/s. EDV: 32 cm/s. Mild heterogeneous plaque at origin. ICA/CCA Ratio: 1.1 External carotid artery: Origin: PSV: 513 cm/s. EDV: 59 cm/s. Mild heterogeneous plaque at origin. Subclavian artery: Origin: PSV: 166 cm/s. EDV: 23 cm/s. Mild heterogeneous plaque at origin. Innominate artery: PSV: 69 cm/s. EDV: 9 cm/s. Vertebral artery: PSV: 110 cm/s. EDV: 32 cm/s. LEFT SIDE Common carotid artery: Proximal: PSV: 88 cm/s. EDV: 24 cm/s. Mid: PSV: 84 cm/s. EDV: 22 cm/s. Distal: PSV: 87 cm/s. EDV: 28 cm/s. Mild heterogeneous plaque at distal. Internal carotid artery: Origin: PSV: 72 cm/s. EDV: 19 cm/s. Proximal: PSV: 85 cm/s. EDV: 31 cm/s. Mid: PSV: 118 cm/s. EDV: 46 cm/s. Distal: PSV: 82 cm/s. EDV: 28 cm/s. Mild heterogeneous plaque at origin. ICA/CCA Ratio: 1.0 External carotid artery: Origin: PSV: 466 cm/s. EDV: 40 cm/s. Moderate heterogeneous plaque at origin. Subclavian artery: Proximal: PSV: 129 cm/s. EDV: 22 cm/s. IMPRESSION Please note: the new carotid interpretation criteria are used as recommended by [employer]. When compared with the prior study, of 01/06/2017 no significant change is noted on the right side and no significant change is noted on the left side (internal carotid artery). New finding of abnormal waveform in the left subclavian artery. RIGHT SIDE Common carotid artery: Plaque visualized without evidence of hemodynamically significant stenosis. Internal carotid artery: <50% stenosis consistent with mild carotid artery disease. Tortuous vessel from mid to distal . External carotid artery: Elevated velocities and plaque noted. Vertebral artery: Patent and antegrade flow noted. Abnormal signal suggests more proximal stenosis. Subclavian artery: Plaque visualized without evidence of hemodynamically significant stenosis. LEFT SIDE Common carotid artery: Plaque visualized without evidence of hemodynamically significant stenosis. Internal carotid artery: <50% stenosis consistent with mild carotid artery disease. Tortuous vessel from mid to distal . External carotid artery: Elevated velocities and plaque noted. 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 Subclavian artery: Abnormal waveform suggests a more proximal stenosis. Technologist: Keerthi Shah RVT, RDMS Ordering physician: MISBAH ELKINS Interpreting physician: GLADIS Byrne DO Final CC [facility] : [id number] ID See Link below for Image Normal [facility] Abdomen/Pelvis W IV Cont ONL Yon 05-10-2025 Abdomen/Pelvis W IV Cont ONLY Normal [facility] Absolute lymphocyte countOrd ered By: Joanne Kelly on 05-10-2025 Lymphocytes Auto (Unsp spec) [#/Vol] 3.42 10*3/uL 0.83-4.51 [facility] Anion gap in Serum or Plasma Ordered By: Joanne Kelly on 05-10-2025 Anion gap [Moles/Vol] 12 mmol/L 5-15 [facility] Automated lymphocyte count a s percentage of total leukocytesOrdered By: Joanne Kelly on 05-10-2025 Lymphocytes/100 WBC Auto (Unsp spec) 21.2 % 19-41 [facility] BUN/creatinine ratioOrdered By: Joanne Kelly on 05-10-2025 Urea nitrogen/Creatinine [Mass ratio] 6.7 mg/mg Low 10-20 [facility] Basophil percentageOrdered B y: Joanne Kelly on 05-10-2025 Basophils/100 WBC (Bld) 1.0 % 0-1 [facility] Bilirubin, totalOrdered By: Joanne Bentoner on 05-10-2025 Bilirubin [Mass/Vol] mg/dL 0.00-1.30 [facility] Blood manual differential co mment interpretation (narrative result)Ordered By: Joanneharry Kelly on 05-10-2025 Manual differential comment Geovany (Bld) [Interp] SCANNED [facility] CBC + diff autoon 05-10-2025 CBC W Auto Differential panel (Bld) [facility] CBC W/Diff, Automatedon 04-28 SMEAR COMMENT SCANNED Normal [facility] Comment on above: Performed By: #### L 100.0100 ####[facility] [address] [place], [address] Absolute Neut Normal 2.0-7.7 [facility] Comment on above: Result Comment: DUP Performed By: #### L 500.4050, L100.0100 ####[facility] [address] [place], [address] HCT Normal 37-47 [facility] Comment on above: Result Comment: DUP Performed By: #### L 500.4050, L100.0100 ####[facility] [address] [place], [address] HGB Normal 12.0-15.0 [facility] Comment on above: Result Comment: DUP Performed By: #### L 500.4050, L100.0100 ####[facility] [address] [place], [address] MCH Normal 27.0-32.0 [facility] Comment on above: Result Comment: DUP Performed By: #### L 500.4050, L100.0100 ####[facility] [address] [place], [address] MCHC Normal 32-36 [facility] Comment on above: Result Comment: DUP Performed By: #### L 500.4050, L100.0100 ####[facility] [address] [place], [address] MCV Normal 81-99 [facility] Comment on above: Result Comment: DUP Performed By: #### L 500.4050, L100.0100 ####[facility] [address] [place], [address] NEUT% Normal 47-70 [facility] Comment on above: Result Comment: DUP Performed By: #### L 500.4050, L100.0100 ####[facility] [address] [place], [address] PLT Normal 150-450 [facility] Comment on above: Result Comment: DUP Performed By: #### L 500.4050, L100.0100 ####[facility] [address] [place], [address] RBC Normal 4.2-5.4 [facility] Comment on above: Result Comment: DUP Performed By: #### L 500.4050, L100.0100 ####[facility] [address] [place], [address] RDW CV Normal 11.6-14.6 [facility] Comment on above: Result Comment: DUP Performed By: #### L 500.4050, L100.0100 ####[facility] [address] [place], [address] RDW SD Normal 35.1-43.9 [facility] Comment on above: Result Comment: DUP Performed By: #### L 500.4050, L100.0100 ####[facility] [address] [place], [address] WBC Normal 4.4-11.0 [facility] Comment on above: Result Comment: DUP Performed By: #### L 500.4050, L100.0100 ####[facility] [address] [place], [address] Absolute Neut Normal 2.0-7.7 [facility] Comment on above: Result Comment: This specimen has been REJECTED due to Laboratory criteria:Clotted.SCOTTY WAGONER has been notified of need of recollection.05/10/252118 Tamara Reg Performed By: #### L 100.0100, L500.4050, L501.2450 ####[facility] [address] [place], [address] HCT Normal 37-47 [facility] Comment on above: Result Comment: This specimen has been REJECTED due to Laboratory criteria:Clotted.SCOTTY WAGONER has been notified of need of recollection.05/10/252118 Tamara Reg Performed By: #### L 100.0100, L500.4050, L501.2450 ####[facility] [address] [place], [address] HGB Normal 12.0-15.0 [facility] Comment on above: Result Comment: This specimen has been REJECTED due to Laboratory criteria:Clotted.SCOTTY WAGONER has been notified of need of recollection.05/10/252118 Tamara Reg Performed By: #### L 100.0100, L500.4050, L501.2450 ####[facility] [address] [place], [address] MCH Normal 27.0-32.0 [facility] Comment on above: Result Comment: This specimen has been REJECTED due to Laboratory criteria:Clotted.SCOTTY WAGONER has been notified of need of recollection.05/10/252118 Tamara Reg Performed By: #### L 100.0100, L500.4050, L501.2450 ####[facility] [address] [place], [address] MCHC Normal 32-36 [facility] Comment on above: Result Comment: This specimen has been REJECTED due to Laboratory criteria:Clotted.SCOTTY WAGONER has been notified of need of recollection.05/10/252118 Tamara Reg Performed By: #### L 100.0100, L500.4050, L501.2450 ####[facility] [address] [place], [address] MCV Normal 81-99 [facility] Comment on above: Result Comment: This specimen has been REJECTED due to Laboratory criteria:Clotted.SCOTTY WAGONER has been notified of need of recollection.05/10/252118 Tamara Reg Performed By: #### L 100.0100, L500.4050, L501.2450 ####[facility] [address] [place], [address] NEUT% Normal 47-70 [facility] Comment on above: Result Comment: This specimen has been REJECTED due to Laboratory criteria:Clotted.SCOTTY WAGONER has been notified of need of recollection.05/10/252118 Tamara Reg Performed By: #### L 100.0100, L500.4050, L501.2450 ####[facility] [address] [place], [address] PLT Normal 150-450 [facility] Comment on above: Result Comment: This specimen has been REJECTED due to Laboratory criteria:Clotted.SCOTTY WAGONER has been notified of need of recollection.05/10/252118 Tamara Reg Performed By: #### L 100.0100, L500.4050, L501.2450 ####[facility] [address] [place], [place], [address] RBC Normal 4.2-5.4 [facility] Comment on above: Result Comment: This specimen has been REJECTED due to Laboratory criteria:Clotted.SCOTTY WAGONER has been notified of need of recollection.05/10/252118 Tamara Reg Performed By: #### L 100.0100, L500.4050, L501.2450 ####[facility] [address] [place], [address] RDW CV Normal 11.6-14.6 [facility] Comment on above: Result Comment: This specimen has been REJECTED due to Laboratory criteria:Clotted.SCOTTY WAGONER has been notified of need of recollection.05/10/252118 Tamara Reg Performed By: #### L 100.0100, L500.4050, L501.2450 ####[facility] [address] [place], [address] RDW SD Normal 35.1-43.9 [facility] Comment on above: Result Comment: This specimen has been REJECTED due to Laboratory criteria:Clotted.SCOTTY WAGONER has been notified of need of recollection.05/10/252118 Tamara Reg Performed By: #### L 100.0100, L500.4050, L501.2450 ####[facility] [address] [place], [address] WBC Normal 4.4-11.0 [facility] Comment on above: Result Comment: This specimen has been REJECTED due to Laboratory criteria:Clotted.SCOTTY WAGONER has been notified of need of recollection.05/10/252118 Tamara Reg Performed By: #### L 100.0100, L500.4050, L501.2450 ####[facility] [address] [place], [address] Carbon dioxide, total [Moles /volume] in Central venous bloodOrdered By: Joanne Kelly on 08-13-2025 CO2 [Moles/Vol] 28.4 mmol/L 21.0-32.0 [facility] Chloride assayOrdered By: Ronna Kelly on 05-10-2025 Chloride [Moles/Vol] 98 mmol/L 98-108 [facility] Comprehensive Metabolic Prof ilon 05-10-2025 Albumin [Mass/Vol] 3.9 g/dL Normal 3.4-4.8 [facility] Comment on above: Performed By: #### L 100.0100, L500.4050, L501.2450 ####[facility] [address] [place], [address] Albumin/Globulin [Mass ratio] 1.1 {ratio} Normal 0.9-2.4 [facility] Comment on above: Performed By: #### L 100.0100, L500.4050, L501.2450 ####[facility] [address] [place], [address] ALK PHOS 121 U/L High 35-104 [facility] Comment on above: Performed By: #### L 100.0100, L500.4050, L501.2450 ####[facility] [address] [place], [address] ALT [Catalytic activity/Vol] U/L Normal <=34 [facility] Comment on above: Performed By: #### L 100.0100, L500.4050, L501.2450 ####[facility] [address] [place], [address] AST [Catalytic activity/Vol] 16 U/L Normal <=31 [facility] Comment on above: Result Comment: Hemo lysis present, Results??could be affected.?? Performed By: #### L 100.0100, L500.4050, L501.2450 ####[facility] [address] [place], [address] BUN/CRE 6.7 RATIO Low 10-20 [facility] Comment on above: Performed By: #### L 100.0100, L500.4050, L501.2450 ####[facility] [address] [place], [address] Calcium [Mass/Vol] 9.5 mg/dL Normal 7.6-11.0 [facility] Comment on above: Performed By: #### L 100.0100, L500.4050, L501.2450 ####[facility] [address] [place], [address] Chloride [Moles/Vol] 98 mmol/L Normal 98-108 [facility] Comment on above: Performed By: #### L 100.0100, L500.4050, L501.2450 ####[facility] [address] [place], [address] CO2 [Moles/Vol] 28.4 mmol/L Normal 21.0-32.0 [facility] Comment on above: Performed By: #### L 100.0100, L500.4050, L501.2450 ####[facility] [address] [place], [address] Creatinine [Mass/Vol] 0.67 mg/dL Low 0.70-1.20 [facility] Comment on above: Performed By: #### L 100.0100, L500.4050, L501.2450 ####[facility] [address] [place], [address] ECRCL 72.02 ml/min Normal 50-250 [facility] Comment on above: Performed By: #### L 100.0100, L500.4050, L501.2450 ####[facility] [address] [place], [address] GAP 12 Normal 5-15 [facility] Comment on above: Performed By: #### L 100.0100, L500.4050, L501.2450 ####[facility] [address] [place], [address] GFR/1.73 sq M.predicted among non-blacks MDRD (S/P/Bld) [Vol rate/Area] 99 mL/min/{1.73_m2} Normal >60 [facility] Comment on above: Result Comment: mL/m in/1.73m2 CKD-EPI Creatinine Equation (2020) Performed By: #### L 100.0100, L500.4050, L501.2450 ####[facility] [address] [place], [address] Globulin (S) [Mass/Vol] 3.5 g/dL Normal 2.2-4.2 [facility] Comment on above: Performed By: #### L 100.0100, L500.4050, L501.2450 ####[facility] [address] [place], [address] Glucose [Mass/Vol] 114 mg/dL High 70-99 [facility] Comment on above: Performed By: #### L 100.0100, L500.4050, L501.2450 ####[facility] [address] [place], [address] Potassium [Moles/Vol] 4.4 mmol/L Normal 3.3-5.1 [facility] Comment on above: Result Comment: Hemo lysis present, Results??could be affected.?? Performed By: #### L 100.0100, L500.4050, L501.2450 ####[facility] [address] [place], [address] Sodium [Moles/Vol] 138 mmol/L Normal 133-145 [facility] Comment on above: Performed By: #### L 100.0100, L500.4050, L501.2450 ####[facility] [address] [place], [address] T BILI < 0.15 Normal 0.00-1.30 [facility] Comment on above: Performed By: #### L 100.0100, L500.4050, L501.2450 ####[facility] [address] [place], [address] T PROT 7.4 g/dL Normal 5.9-8.4 [facility] Comment on above: Performed By: #### L 100.0100, L500.4050, L501.2450 ####[facility] [address] [place], [address] Urea nitrogen [Mass/Vol] 4 mg/dL Normal 4-19 [facility] Comment on above: Performed By: #### L 100.0100, L500.4050, L501.2450 ####[facility] [address] [place], [address] ALB Normal 3.4-4.8 [facility] Comment on above: Result Comment: DUP Performed By: #### L 500.4050, L100.0100 ####[facility] [address] [place], [address] ALK PHOS Normal 35-104 [facility] Comment on above: Result Comment: DUP Performed By: #### L 500.4050, L100.0100 ####[facility] [address] [place], [address] ALT Normal <=34 [facility] Comment on above: Result Comment: DUP Performed By: #### L 500.4050, L100.0100 ####[facility] [address] [place], [address] AST Normal <=31 [facility] Comment on above: Result Comment: DUP Performed By: #### L 500.4050, L100.0100 ####[facility] [address] [place], [address] BUN Normal 4-19 [facility] Comment on above: Result Comment: DUP Performed By: #### L 500.4050, L100.0100 ####[facility] [address] [place], [address] BUN/CRE Normal 10-20 [facility] Comment on above: Result Comment: DUP Performed By: #### L 500.4050, L100.0100 ####[facility] [address] [place], [address] Calcium Normal 7.6-11.0 [facility] Comment on above: Result Comment: DUP Performed By: #### L 500.4050, L100.0100 ####[facility] [address] [place], [address] CL Normal 98-108 [facility] Comment on above: Result Comment: DUP Performed By: #### L 500.4050, L100.0100 ####[facility] [address] [place], [address] CO2 Normal 21.0-32.0 [facility] Comment on above: Result Comment: DUP Performed By: #### L 500.4050, L100.0100 ####[facility] [address] [place], [address] CREAT,SERUM Normal 0.70-1.20 [facility] Comment on above: Result Comment: DUP Performed By: #### L 500.4050, L100.0100 ####[facility] [address] [place], [address] eGFR Normal >60 [facility] Comment on above: Result Comment: DUP Performed By: #### L 500.4050, L100.0100 ####[facility] [address] [place], [address] GAP Normal 5-15 [facility] Comment on above: Result Comment: DUP Performed By: #### L 500.4050, L100.0100 ####[facility] [address] [place], [address] GLU Normal 70-99 [facility] Comment on above: Result Comment: DUP Performed By: #### L 500.4050, L100.0100 ####[facility] [address] [place], [address] Potassium Normal 3.3-5.1 [facility] Comment on above: Result Comment: DUP Performed By: #### L 500.4050, L100.0100 ####[facility] [address] [place], [address] T BILI Normal 0.00-1.30 [facility] Comment on above: Result Comment: DUP Performed By: #### L 500.4050, L100.0100 ####[facility] [address] [place], [address] T PROT Normal 5.9-8.4 [facility] Comment on above: Result Comment: DUP Performed By: #### L 500.4050, L100.0100 ####[facility] [address] [place], [address] Comprehensive Metabolic Profil Normal 133-145 [facility] Comment on above: Result Comment: DUP Performed By: #### L 500.4050, L100.0100 ####[facility] [address] [place], [address] Emergency Department Summary on 05-10-2025 Emergency Department Summary Normal [facility] Eosinophil percentageOrdered By: Joanne Kelly on 05-10-2025 Eosinophils/100 WBC (Bld) 5.1 % High 0-5 [facility] Erythrocyte distribution wid th ratioOrdered By: Joanne Kelly on 05-10-2025 Erythrocyte distribution width (RBC) [Ratio] 14.6 % 11.6-14.6 [facility] Erythrocyte distribution wid th standard deviationOrdered By: Joanne Kelly on 05-10-2025 Erythrocyte distribution width (RBC) [Ratio] 46.5 fl High 35.1-43.9 [facility] Glomerular filtration rate ( GFR) estimation/1.73 sq m using serum, plasma, or whole bOrdered By: Joanne Kelly on 05-10-2025 GFR/1.73 sq M.predicted among non-blacks MDRD (S/P/Bld) [Vol rate/Area] 99 mL/min/{1.73_m2} >60 [facility] Hematocrit Auto (Bld) [Volum e fraction]Ordered By: Joanne Kelly on 05-10-2025 Hematocrit (Bld) [Volume fraction] 37.0 % 37-47 [facility] Hemoglobin measurementOrdere d By: Joanne Kelly on 05-10-2025 Hemoglobin (Bld) [Mass/Vol] 11.4 g/dL Low 12.0-15.0 [facility] Immature granulocytes/100 WB C Auto (Bld)Ordered By: Joanne Kelly on 05-10-2025 Immature granulocytes/100 WBC (Bld) 0.700 % 0.0-0.9 [facility] Lipaseon 05-10-2025 Lipase [Catalytic activity/Vol] 459 U/L High 13-75 [facility] Comment on above: Result Comment: Jenny capellan note:LIPASE revised reference range effective 23.New Lipase methodology. Expected to produce lower valuesthan the previous assay method.NEW Reference Range: 13 - 75 U/L Performed By: #### L 100.0100, L500.4050, L501.2450 ####[facility] [address] [place], [address] MCV (mean corpuscular volume ) determinationOrdered By: Joanne Kelly on 05-10-2025 MCV (RBC) [Entitic vol] 86.7 fL 81-99 [facility] Mean corpuscular hemoglobin (MCH) determinationOrdered By: Joanne Kelly on 05-10-2025 MCH (RBC) [Entitic mass] 26.7 pg Low 27.0-32.0 [facility] Monocyte percentageOrdered B y: Joanne Kelly on 05-10-2025 Monocytes/100 WBC (Bld) 8.2 % 0-10 [facility] Neutrophil percentageOrdered By: Joanne Bentoner on 05-10-2025 Neutrophils/100 WBC (Bld) 63.8 % 47-70 [facility] No Panel InformationOrdered By: Joanneharry Kelly on 05-10-2025 16 U/L <32 [facility] Platelet countOrdered By: Ronna Kelly on 05-10-2025 Platelets (Bld) [#/Vol] 305 10*3/uL 150-450 [facility] Potassium measurement (mass/ volume)Ordered By: Joanne Kelly on 05-10-2025 Potassium (Unsp spec) [Mass/Vol] 4.4 mmol/L 3.3-5.1 [facility] RBC Auto (Bld) [#/Vol]Ordere d By: Joanne Kelly on 05-10-2025 RBC (Bld) [#/Vol] 4.27 10*6/uL 4.2-5.4 [facility] Serum creatinine measurement (mass/volume)Ordered By: Joanne Kelly on 05-10-2025 Creatinine [Mass/Vol] 0.67 mg/dL Low 0.70-1.20 [facility] Serum globulin measurementOr dered By: Joanne Kelly on 05-10-2025 Globulin (S) [Mass/Vol] 3.5 g/dL 2.2-4.2 [facility] Serum glucose measurement (m ass/volume)Ordered By: Joanne Kelly on 05-10-2025 Glucose [Mass/Vol] 114 mg/dL High 70-99 [facility] Serum or plasma alanine pimentel otransferase (ALT) measurementOrdered By: Joanne Kelly on 05-10-2025 ALT [Catalytic activity/Vol] U/L <35 [facility] Serum or plasma albumin esthela urement (mass/volume)Ordered By: Joanne Kelly on 05-10-2025 Albumin [Mass/Vol] 3.9 g/dL 3.4-4.8 [facility] Serum or plasma albumin/glob ulin mass ratioOrdered By: Joanne Kelly on 05-10-2025 Albumin/Globulin [Mass ratio] 1.1 {ratio} 0.9-2.4 [facility] Serum or plasma alkaline jose sphatase measurementOrdered By: Joanneharry Kelly on 05-10-2025 ALP [Catalytic activity/Vol] 121 U/L High 35-104 [facility] Serum or plasma calcium esthela urement (mass/volume)Ordered By: Joanneharry Kelly on 05-10-2025 Calcium [Mass/Vol] 9.5 mg/dL 7.6-11.0 [facility] Serum or plasma urea nitroge n measurement (mass/volume)Ordered By: Joanneharry Kelly on 05-10-2025 Urea nitrogen [Mass/Vol] 4 mg/dL 4-19 [facility] Sodium levelOrdered By: Mahamed Kelly on 05-10-2025 Sodium [Moles/Vol] 138 mmol/L 133-145 [facility] Total proteinOrdered By: Brittnee Kelly on 05-10-2025 Protein [Mass/Vol] 7.4 g/dL 5.9-8.4 [facility] White blood cell (WBC) count Ordered By: Joanneharry Kelly on 05-10-2025 WBC (Bld) [#/Vol] 16.2 10*3/uL High 4.4-11.0 [facility] M7400.3302on 05-05-2025 M7400.3302 Normal [facility] Comment on above: Performed By: #### M 600.5000, L7000.0700, M7400.3302 ####[facility] [address] [place], [address] Ova and Parasites 8623on OP Normal [facility] Comment on above: Performed By: #### M 600.5000, L7000.0700, M7400.3302 ####[facility] [address] [place], [address] Calprotectin, Stoolon [address] 20 ug/g Normal 0-120 [facility] Comment on above: Result Comment: Conc entration Interpretation Follow-Up< 5 - 50 ug/g Normal None>50 -120 ug/g Borderline Re-evaluate in 4-6 weeks >120 ug/g Abnormal Repeat as clinically indicatedPerformed at: [facility] [employer] [id number] Director: Marvin Quintanilla MD, Phone: [phone] Performed By: #### M 600.5000, L7000.0700, M7400.3302 ####[facility] [address] [place], [place], [id number] L7000.0750on 05-01-2025 P ELASTASE,FECA 462 Normal >200 [facility] Comment on above: Result Comment: Resu lt Units: ug Elast./g Severe Pancreatic Insufficiency: <100 Moderate Pancreatic Insufficiency: 100 - 200 Normal: >200Performed at: [employer] [id number] Director: Marvin Quintanilla MD, Phone: [phone] Performed By: #### M 100.6696, M148.637, L7000.0750 ####[facility] [address] [place], [place], [id number] CDIFF (PCR)on 04-27-2025 CDIFF Pending 027 027 NAP1-B1 Presumptive Negative *for epidemiolologic???use C. Diff PCR Negative- No toxigenic C. Diff Detected Normal [facility] Comment on above: Performed By: #### M 100.2596, M100637, L7000.0750 ####[facility] [address] [place], [place], [id number] Calprotectin stoolOrdered By : Gabby Martinez on 04-27-2025 Calprotectin stool 20 ug/g 0-120 [facility] Clostridium difficile detect ion by polymerase chain reactionOrdered By: Gabby Martinez on 04-27-2025 C. difficile DNA KANDY+probe Ql (Unsp spec) [facility] ENTERIC PATHOGEN PANEL STOOL on 04-27-2025 EP PANEL CAMPYLOBACTER Not Detected Norovirus Not Detected Rotavirus Not Detected Salmonella Not Detected Shiga Toxin Not Detected Shigella sp. Not Detected VIBRIO Not Detected Yersinia Not Detected Normal [facility] Comment on above: Performed By: #### M 100.6796, M100.637, L7000.0750 ####[facility] [address] [place], [place], [address] Stool pancreatic elastase me asurement (mass/mass)Ordered By: Gabby Martinez on 04-27-2025 Elastase.pancreatic (Stl) [Mass/Mass] 462 >200 [facility] Abdomen Single Viewon 2024 Abdomen Single View Normal [facility] Gastroenterology Visit Repor ton 04-26-2025 Gastroenterology Visit Report Normal [facility] Lipaseon 04-26-2025 Lipase [Catalytic activity/Vol] 353 U/L High 13-75 [facility] Comment on above: Result Comment: Jenny capellan note:LIPASE revised reference range effective 23.New Lipase methodology. Expected to produce lower valuesthan the previous assay method.NEW Reference Range: 13 - 75 U/L Performed By: #### L 501.2450 ####[facility] [address] [place], [place], [address] CNOVon 04-25-2025 CNOV Office Visit (INTMWS ) -------- GRACIE BANUELOS ([id number]) 1965 F Date Time Provider Department 04/25/25 [...] on 04/16/2025 and discharged on 04/19/2025, at [facility], following an episode of acute pancreatitis. She [...] placement and removal of multiple stones at [facility] in [place] on 03/10/2025. During her recent hospitalization, a [...] chronic pancreatitis and pancreatic stent placement at [facility] on 03/10/2025. She reports ongoing pain [...] pain management. She is also taking an xmvu-iyx-qxmrtti medication called Ease to manage constipation associated with opioid use. Gracie expresses concern about her blood pressure readings, which she reports are high in one arm and low in the other. She was told by her doctors that she might have a blood clot and is requesting a referral to a mental telepathist for further evaluation. 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 Normal [facility] Matteo 04-25-2025 [facility] Telephone (INTMWS) -------- GRACIE BANUELOS ([id number]) 1965 F Date Time Provider Department 04/25/25 MISBAH ELKINS During your visit today, we recorded the following information about you: Caroline Miller, SARWAT 04/25/2025 6:01 PM Signed Pt just in [...] sent tramadol as requested to [facility] Misbah Pollock MD, Barbara, RN 04/26/2025 8:24 AM Signed Called pt and she said she already picked up the Tramadol. Allergies As of Date: 04/25/2025 Noted Allergy Reaction BACTRIM (SULFAMETHOXAZOLE-TRIMET H*11/28/2022 4 - Hives HYDROCODONE 08/02/2020 9 - [...] cyst, righ (more content not included)... Normal [facility] GRACIE BANUELOS ([id number]) 1965 F Date Time Provider Department 04/20/25 MISBAH ELKINS INTMikeWS During your visit today, we recorded the following information about you: Kiana Christy 04/20/2025 8:59 AM Signed Patient calling in to let office know she was just discharged from [facility]. She made an appt to see on 04/25, however she states they gave her oxycodone to help with her pain, and she only has 4 left. She is wondering if she is able to get another refill. Please review and advise. Kiana Christy April 20, 2025 8:59 AM Misbah Elkins MD 04/20/2025 4:58 PM Signed [facility] does not show that she got any oxycodoe Staff do you see anything or does [facility] not have connection to oarrrs? Regards, [...] of Date: 04/20/2025 Noted Allergy Reaction BACTRIM (SULFAMETHOXAZOLE-TRIMET H*11/28/2022 4 - Hives HYDROCODONE 08/02/2020 9 - [...] 11/16/2013 [facility] (more content not included)... Normal [facility] Absolute lymphocyte countOrd ered By: Sudhir Izquierdo on 04-19-2025 Lymphocytes Auto (Unsp spec) [#/Vol] 2.49 10*3/uL 0.83-4.51 [facility] Automated lymphocyte count a s percentage of total leukocytesOrdered By: Sudhir Izquierdo on 04-19-2025 Lymphocytes/100 WBC Auto (Unsp spec) 24.2 % 19-41 [facility] Basophil percentageOrdered B y: Sudhir Izquierdo on 04-19-2025 Basophils/100 WBC (Bld) 0.7 % 0-1 [facility] CBC W/Diff, Automatedon 03-29 Absolute Lymph 2.49 X10 3/uL Normal 0.83-4.51 [facility] Comment on above: Performed By: #### L 100.0100 ####[facility] [address] [place], [address] Absolute Neut 5.6 X10 3/uL Normal 2.0-7.7 [facility] Comment on above: Performed By: #### L 100.0100 ####[facility] [address] [place], [address] Basophils/100 WBC (Bld) 0.7 % Normal 0-1 [facility] Comment on above: Performed By: #### L 100.0100 ####[facility] [address] [place], [address] Eosinophils/100 WBC (Bld) 12.2 % High 0-5 [facility] Comment on above: Performed By: #### L 100.0100 ####[facility] [address] [place], [address] Erythrocyte distribution width (RBC) [Ratio] 14.5 % Normal 11.6-14.6 [facility] Comment on above: Performed By: #### L 100.0100 ####[facility] [address] [place], [address] Hematocrit (Bld) [Volume fraction] 28.0 % Low 37-47 [facility] Comment on above: Performed By: #### L 100.0100 ####[facility] [address] [place], [address] Hemoglobin (Bld) [Mass/Vol] 8.8 g/dL Low 12.0-15.0 [facility] Comment on above: Performed By: #### L 100.0100 ####[facility] [address] [place], [address] IG% 1.100 High 0.0-0.9 [facility] Comment on above: Result Comment: IG% - Immature Granulocytes (promyelocytes, myelocytes andmetamyelocytes) > 1% indicates that a LEFT SHIFT is Present. Performed By: #### L 100.0100 ####[facility] [address] [place], [address] Lymphocytes/100 WBC (Bld) 24.2 % Normal 19-41 [facility] Comment on above: Performed By: #### L 100.0100 ####[facility] [address] [place], [address] MCH (RBC) [Entitic mass] 26.4 pg Low 27.0-32.0 [facility] Comment on above: Performed By: #### L 100.0100 ####[facility] [address] [place], [address] MCHC (RBC) [Mass/Vol] 31.4 g/dL Low 32-36 [facility] Comment on above: Performed By: #### L 100.0100 ####[facility] [address] [place], [address] MCV (RBC) [Entitic vol] 84.1 fL Normal 81-99 [facility] Comment on above: Performed By: #### L 100.0100 ####[facility] [address] [place], [address] Monocytes/100 WBC (Bld) 7.2 % Normal 0-10 [facility] Comment on above: Performed By: #### L 100.0100 ####[facility] [address] [place], [address] Neutrophils/100 WBC (Bld) 54.6 % Normal 47-70 [facility] Comment on above: Performed By: #### L 100.0100 ####[facility] [address] [place], [address] Nucleated RBC (Bld) [#/Vol] 0 10*3/uL Normal 0-5 [facility] Comment on above: Performed By: #### L 100.0100 ####[facility] [address] [place], [address] Platelet mean volume (Bld) [Entitic vol] 9.6 fL Normal 6.2-12.0 [facility] Comment on above: Performed By: #### L 100.0100 ####[facility] [address] [place], [address] Platelets (Bld) [#/Vol] 330 10*3/uL Normal 150-450 [facility] Comment on above: Performed By: #### L 100.0100 ####[facility] [address] [place], [address] RBC (Bld) [#/Vol] 3.33 10*6/uL Low 4.2-5.4 [facility] Comment on above: Performed By: #### L 100.0100 ####[facility] [address] [place], [address] RDW SD 44.5 fl High 35.1-43.9 [facility] Comment on above: Performed By: #### L 100.0100 ####[facility] [address] [place], [address] WBC (Bld) [#/Vol] 10.3 10*3/uL Normal 4.4-11.0 [facility] Comment on above: Performed By: #### L 100.0100 ####[facility] [address] [place], [address] Discharge Instructionon 03-29 Discharge Instruction Normal [facility] Eosinophil percentageOrdered By: Sudhir Izquierdo on 04-19-2025 Eosinophils/100 WBC (Bld) 12.2 % High 0-5 [facility] Erythrocyte distribution wid th ratioOrdered By: Sudhir Izquierdo on 04-19-2025 Erythrocyte distribution width (RBC) [Ratio] 14.5 % 11.6-14.6 [facility] Erythrocyte distribution wid th standard deviationOrdered By: Sudhir Izquierdo on 04-19-2025 Erythrocyte distribution width (RBC) [Ratio] 44.5 fl High 35.1-43.9 [facility] Hematocrit Auto (Bld) [Volum e fraction]Ordered By: Sudhir Izquierdo on 04-19-2025 Hematocrit (Bld) [Volume fraction] 28.0 % Low 37-47 [facility] Hemoglobin measurementOrdere d By: Sudhir Izquierdo on 04-19-2025 Hemoglobin (Bld) [Mass/Vol] 8.8 g/dL Low 12.0-15.0 [facility] Immature granulocytes/100 WB C Auto (Bld)Ordered By: Sudhir Izquierdo on 04-19-2025 Immature granulocytes/100 WBC (Bld) 1.100 % High 0.0-0.9 [facility] MCV (mean corpuscular volume ) determinationOrdered By: Sudhir Izquierdo on 04-19-2025 MCV (RBC) [Entitic vol] 84.1 fL 81-99 [facility] Mean corpuscular hemoglobin (MCH) determinationOrdered By: Sudhir Izquierdo on 04-19-2025 MCH (RBC) [Entitic mass] 26.4 pg Low 27.0-32.0 [facility] Monocyte percentageOrdered B y: Sudhir Izquierdo on 04-19-2025 Monocytes/100 WBC (Bld) 7.2 % 0-10 [facility] Neutrophil percentageOrdered By: Sudhir Izquierdo on 04-19-2025 Neutrophils/100 WBC (Bld) 54.6 % 47-70 [facility] Platelet countOrdered By: Rosana Izquierdo on 04-19-2025 Platelets (Bld) [#/Vol] 330 10*3/uL 150-450 [facility] RBC Auto (Bld) [#/Vol]Ordere d By: Sudhir Izquierdo on 04-19-2025 RBC (Bld) [#/Vol] 3.33 10*6/uL Low 4.2-5.4 [facility] White blood cell (WBC) count Ordered By: Sudhir Izquierdo on 04-19-2025 WBC (Bld) [#/Vol] 10.3 10*3/uL 4.4-11.0 [facility] Anion gap in Serum or Plasma Ordered By: Bert Greenwood on 04-18-2025 Anion gap [Moles/Vol] 12 mmol/L 5-15 [facility] BUN/creatinine ratioOrdered By: Bert Greenwood on 04-18-2025 Urea nitrogen/Creatinine [Mass ratio] 8.6 mg/mg Low 10-20 [facility] Basic Metabolic Profile (BMP )on 04-18-2025 BUN/CRE 8.6 RATIO Low 10-20 [facility] Comment on above: Performed By: #### L 100.0100, L500.2500 ####[facility] [address] [place], [address] Calcium [Mass/Vol] 8.8 mg/dL Normal 7.6-11.0 [facility] Comment on above: Performed By: #### L 100.0100, L500.2500 ####[facility] [address] [place], [address] Chloride [Moles/Vol] 101 mmol/L Normal 98-108 [facility] Comment on above: Performed By: #### L 100.0100, L500.2500 ####[facility] [address] [place], [address] CO2 [Moles/Vol] 27.2 mmol/L Normal 21.0-32.0 [facility] Comment on above: Performed By: #### L 100.0100, L500.2500 ####[facility] [address] [place], [address] Creatinine [Mass/Vol] 0.57 mg/dL Low 0.70-1.20 [facility] Comment on above: Performed By: #### L 100.0100, L500.2500 ####[facility] [address] [place], [address] ECRCL 85.74 ml/min Normal 50-250 [facility] Comment on above: Performed By: #### L 100.0100, L500.2500 ####[facility] [address] [place], [address] GAP 12 Normal 5-15 [facility] Comment on above: Performed By: #### L 100.0100, L500.2500 ####[facility] [address] [place], [address] GFR/1.73 sq M.predicted among non-blacks MDRD (S/P/Bld) [Vol rate/Area] 103 mL/min/{1.73_m2} Normal >60 [facility] Comment on above: Result Comment: mL/m in/1.73m2 CKD-EPI Creatinine Equation (2020) Performed By: #### L 100.0100, L500.2500 ####[facility] [address] [place], [address] Glucose [Mass/Vol] 121 mg/dL High 70-99 [facility] Comment on above: Performed By: #### L 100.0100, L500.2500 ####[facility] [address] [place], [address] Potassium [Moles/Vol] 3.7 mmol/L Normal 3.3-5.1 [facility] Comment on above: Performed By: #### L 100.0100, L500.2500 ####[facility] [address] [place], [address] Sodium [Moles/Vol] 139 mmol/L Normal 133-145 [facility] Comment on above: Performed By: #### L 100.0100, L500.2500 ####[facility] [address] [place], [address] Urea nitrogen [Mass/Vol] 5 mg/dL Normal 4-19 [facility] Comment on above: Performed By: #### L 100.0100, L500.2500 ####[facility] [address] [place], [address] CBC W/Diff, Automatedon 07-2 Absolute Lymph 2.64 X10 3/uL Normal 0.83-4.51 [facility] Comment on above: Performed By: #### L 100.0100, L500.2500 ####[facility] [address] [place], [address] Absolute Neut 6.6 X10 3/uL Normal 2.0-7.7 [facility] Comment on above: Performed By: #### L 100.0100, L500.2500 ####[facility] [address] [place], [address] Basophils/100 WBC (Bld) 0.5 % Normal 0-1 [facility] Comment on above: Performed By: #### L 100.0100, L500.2500 ####[facility] [address] [place], [address] Eosinophils/100 WBC (Bld) 8.1 % High 0-5 [facility] Comment on above: Performed By: #### L 100.0100, L500.2500 ####[facility] [address] [place], [address] Erythrocyte distribution width (RBC) [Ratio] 14.8 % High 11.6-14.6 [facility] Comment on above: Performed By: #### L 100.0100, L500.2500 ####[facility] [address] [place], [address] Hematocrit (Bld) [Volume fraction] 28.1 % Low 37-47 [facility] Comment on above: Performed By: #### L 100.0100, L500.2500 ####[facility] [address] [place], [address] Hemoglobin (Bld) [Mass/Vol] 8.8 g/dL Low 12.0-15.0 [facility] Comment on above: Performed By: #### L 100.0100, L500.2500 ####[facility] [address] [place], [address] IG% 0.500 Normal 0.0-0.9 [facility] Comment on above: Result Comment: IG% - Immature Granulocytes (promyelocytes, myelocytes andmetamyelocytes) > 1% indicates that a LEFT SHIFT is Present. Performed By: #### L 100.0100, L500.2500 ####[facility] [address] [place], [address] Lymphocytes/100 WBC (Bld) 23.8 % Normal 19-41 [facility] Comment on above: Performed By: #### L 100.0100, L500.2500 ####[facility] [address] [place], [address] MCH (RBC) [Entitic mass] 26.3 pg Low 27.0-32.0 [facility] Comment on above: Performed By: #### L 100.0100, L500.2500 ####[facility] [address] [place], [address] MCHC (RBC) [Mass/Vol] 31.3 g/dL Low 32-36 [facility] Comment on above: Performed By: #### L 100.0100, L500.2500 ####[facility] [address] [place], [address] MCV (RBC) [Entitic vol] 84.1 fL Normal 81-99 [facility] Comment on above: Performed By: #### L 100.0100, L500.2500 ####[facility] [address] [place], [address] Monocytes/100 WBC (Bld) 7.0 % Normal 0-10 [facility] Comment on above: Performed By: #### L 100.0100, L500.2500 ####[facility] [address] [place], [address] Neutrophils/100 WBC (Bld) 60.1 % Normal 47-70 [facility] Comment on above: Performed By: #### L 100.0100, L500.2500 ####[facility] [address] [place], [address] Nucleated RBC (Bld) [#/Vol] 0 10*3/uL Normal 0-5 [facility] Comment on above: Performed By: #### L 100.0100, L500.2500 ####[facility] [address] [place], [address] Platelet mean volume (Bld) [Entitic vol] 9.9 fL Normal 6.2-12.0 [facility] Comment on above: Performed By: #### L 100.0100, L500.2500 ####[facility] [address] [place], [address] Platelets (Bld) [#/Vol] 303 10*3/uL Normal 150-450 [facility] Comment on above: Performed By: #### L 100.0100, L500.2500 ####[facility] [address] [place], [address] RBC (Bld) [#/Vol] 3.34 10*6/uL Low 4.2-5.4 [facility] Comment on above: Performed By: #### L 100.0100, L500.2500 ####[facility] [address] [place], [address] RDW SD 45.5 fl High 35.1-43.9 [facility] Comment on above: Performed By: #### L 100.0100, L500.2500 ####[facility] [address] [place], [address] WBC (Bld) [#/Vol] 11.1 10*3/uL High 4.4-11.0 [facility] Comment on above: Performed By: #### L 100.0100, L500.2500 ####[facility] [address] [place], [address] Carbon dioxide, total [Moles /volume] in Central venous bloodOrdered By: Bert Greenwood on 04-18-2025 CO2 [Moles/Vol] 27.2 mmol/L 21.0-32.0 [facility] Chloride assayOrdered By: Dorian Greenwood on 04-18-2025 Chloride [Moles/Vol] 101 mmol/L 98-108 [facility] Glomerular filtration rate ( GFR) estimation/1.73 sq m using serum, plasma, or whole bOrdered By: Bert Greenwood on 04-18-2025 GFR/1.73 sq M.predicted among non-blacks MDRD (S/P/Bld) [Vol rate/Area] 103 mL/min/{1.73_m2} >60 [facility] Potassium measurement (mass/ volume)Ordered By: Bert Greenwood on 04-18-2025 Potassium (Unsp spec) [Mass/Vol] 3.7 mmol/L 3.3-5.1 [facility] Serum creatinine measurement (mass/volume)Ordered By: Bert Greenwood on 04-18-2025 Creatinine [Mass/Vol] 0.57 mg/dL Low 0.70-1.20 [facility] Serum glucose measurement (m ass/volume)Ordered By: Bert Greenwood on 04-18-2025 Glucose [Mass/Vol] 121 mg/dL High 70-99 [facility] Serum or plasma calcium esthela urement (mass/volume)Ordered By: Bert Greenwood on 04-18-2025 Calcium [Mass/Vol] 8.8 mg/dL 7.6-11.0 [facility] Serum or plasma urea nitroge n measurement (mass/volume)Ordered By: Bert Greenwood on 04-18-2025 Urea nitrogen [Mass/Vol] 5 mg/dL 4-19 [facility] Sodium levelOrdered By: Mandy Greenwood on 04-18-2025 Sodium [Moles/Vol] 139 mmol/L 133-145 [facility] Bilirubin, totalOrdered By: Bert Greenwood on 04-17-2025 Bilirubin [Mass/Vol] 0.18 mg/dL 0.00-1.30 [facility] CBC W/Diff, Automatedon 07-2 Absolute Lymph 2.11 X10 3/uL Normal 0.83-4.51 [facility] Comment on above: Performed By: #### L 500.4050, L100.0100, L501.2450 ####[facility] [address] [place], [address] Absolute Neut 8.8 X10 3/uL High 2.0-7.7 [facility] Comment on above: Performed By: #### L 500.4050, L100.0100, L501.2450 ####[facility] [address] [place], [address] Basophils/100 WBC (Bld) 0.5 % Normal 0-1 [facility] Comment on above: Performed By: #### L 500.4050, L100.0100, L501.2450 ####[facility] [address] [place], [address] Eosinophils/100 WBC (Bld) 5.0 % Normal 0-5 [facility] Comment on above: Performed By: #### L 500.4050, L100.0100, L501.2450 ####[facility] [address] [place], [address] Erythrocyte distribution width (RBC) [Ratio] 14.9 % High 11.6-14.6 [facility] Comment on above: Performed By: #### L 500.4050, L100.0100, L501.2450 ####[facility] [address] [place], [address] Hematocrit (Bld) [Volume fraction] 28.3 % Low 37-47 [facility] Comment on above: Performed By: #### L 500.4050, L100.0100, L501.2450 ####[facility] [address] [place], [address] Hemoglobin (Bld) [Mass/Vol] 8.9 g/dL Low 12.0-15.0 [facility] Comment on above: Performed By: #### L 500.4050, L100.0100, L501.2450 ####[facility] [address] [place], [address] IG% 0.600 Normal 0.0-0.9 [facility] Comment on above: Result Comment: IG% - Immature Granulocytes (promyelocytes, myelocytes andmetamyelocytes) > 1% indicates that a LEFT SHIFT is Present. Performed By: #### L 500.4050, L100.0100, L501.2450 ####[facility] [address] [place], [address] Lymphocytes/100 WBC (Bld) 16.6 % Low 19-41 [facility] Comment on above: Performed By: #### L 500.4050, L100.0100, L501.2450 ####[facility] [address] [place], [address] MCH (RBC) [Entitic mass] 26.8 pg Low 27.0-32.0 [facility] Comment on above: Performed By: #### L 500.4050, L100.0100, L501.2450 ####[facility] [address] [place], [address] MCHC (RBC) [Mass/Vol] 31.4 g/dL Low 32-36 [facility] Comment on above: Performed By: #### L 500.4050, L100.0100, L501.2450 ####[facility] [address] [place], [address] MCV (RBC) [Entitic vol] 85.2 fL Normal 81-99 [facility] Comment on above: Performed By: #### L 500.4050, L100.0100, L501.2450 ####[facility] [address] [place], [address] Monocytes/100 WBC (Bld) 8.3 % Normal 0-10 [facility] Comment on above: Performed By: #### L 500.4050, L100.0100, L501.2450 ####[facility] [address] [place], [address] Neutrophils/100 WBC (Bld) 69.0 % Normal 47-70 [facility] Comment on above: Performed By: #### L 500.4050, L100.0100, L501.2450 ####[facility] [address] [place], [address] Nucleated RBC (Bld) [#/Vol] 0 10*3/uL Normal 0-5 [facility] Comment on above: Performed By: #### L 500.4050, L100.0100, L501.2450 ####[facility] [address] [place], [address] Platelet mean volume (Bld) [Entitic vol] 10.3 fL Normal 6.2-12.0 [facility] Comment on above: Performed By: #### L 500.4050, L100.0100, L501.2450 ####[facility] [address] [place], [address] Platelets (Bld) [#/Vol] 310 10*3/uL Normal 150-450 [facility] Comment on above: Performed By: #### L 500.4050, L100.0100, L501.2450 ####[facility] [address] [place], [address] RBC (Bld) [#/Vol] 3.32 10*6/uL Low 4.2-5.4 [facility] Comment on above: Performed By: #### L 500.4050, L100.0100, L501.2450 ####[facility] [address] [place], [address] RDW SD 46.7 fl High 35.1-43.9 [facility] Comment on above: Performed By: #### L 500.4050, L100.0100, L501.2450 ####[facility] [address] [place], [address] WBC (Bld) [#/Vol] 12.7 10*3/uL High 4.4-11.0 [facility] Comment on above: Performed By: #### L 500.4050, L100.0100, L501.2450 ####[facility] [address] [place], [address] Comprehensive Metabolic Prof [facility] 04-17-2025 Albumin [Mass/Vol] 3.0 g/dL Low 3.4-4.8 [facility] Comment on above: Performed By: #### L 500.4050, L100.0100, L501.2450 ####[facility] [address] [place], [address] Albumin/Globulin [Mass ratio] 1.0 {ratio} Normal 0.9-2.4 [facility] Comment on above: Performed By: #### L 500.4050, L100.0100, L501.2450 ####[facility] [address] [place], [address] ALK PHOS 113 U/L High 35-104 [facility] Comment on above: Performed By: #### L 500.4050, L100.0100, L501.2450 ####[facility] [address] [place], [address] ALT [Catalytic activity/Vol] 9 U/L Normal <=34 [facility] Comment on above: Performed By: #### L 500.4050, L100.0100, L501.2450 ####[facility] [address] [place], [address] AST [Catalytic activity/Vol] 11 U/L Normal <=31 [facility] Comment on above: Performed By: #### L 500.4050, L100.0100, L501.2450 ####[facility] [address] [place], [address] Bilirubin [Mass/Vol] 0.18 mg/dL Normal 0.00-1.30 [facility] Comment on above: Performed By: #### L 500.4050, L100.0100, L501.2450 ####[facility] [address] [place], [address] BUN/CRE 7.7 RATIO Low 10-20 [facility] Comment on above: Performed By: #### L 500.4050, L100.0100, L501.2450 ####[facility] [address] [place], [address] Calcium [Mass/Vol] 9.1 mg/dL Normal 7.6-11.0 [facility] Comment on above: Performed By: #### L 500.4050, L100.0100, L501.2450 ####[facility] [address] [place], [address] Chloride [Moles/Vol] 101 mmol/L Normal 98-108 [facility] Comment on above: Performed By: #### L 500.4050, L100.0100, L501.2450 ####[facility] [address] [place], [address] CO2 [Moles/Vol] 26.9 mmol/L Normal 21.0-32.0 [facility] Comment on above: Performed By: #### L 500.4050, L100.0100, L501.2450 ####[facility] [address] [place], [address] Creatinine [Mass/Vol] 0.57 mg/dL Low 0.70-1.20 [facility] Comment on above: Performed By: #### L 500.4050, L100.0100, L501.2450 ####[facility] [address] [place], [address] ECRCL 85.74 ml/min Normal 50-250 [facility] Comment on above: Performed By: #### L 500.4050, L100.0100, L501.2450 ####[facility] [address] [place], [address] GAP 12 Normal 5-15 [facility] Comment on above: Performed By: #### L 500.4050, L100.0100, L501.2450 ####[facility] [address] [place], [address] GFR/1.73 sq M.predicted among non-blacks MDRD (S/P/Bld) [Vol rate/Area] 103 mL/min/{1.73_m2} Normal >60 [facility] Comment on above: Result Comment: mL/m in/1.73m2 CKD-EPI Creatinine Equation (2020) Performed By: #### L 500.4050, L100.0100, L501.2450 ####[facility] [address] [place], [address] Globulin (S) [Mass/Vol] 3.0 g/dL Normal 2.2-4.2 [facility] Comment on above: Performed By: #### L 500.4050, L100.0100, L501.2450 ####[facility] [address] [place], [address] Glucose [Mass/Vol] 107 mg/dL High 70-99 [facility] Comment on above: Performed By: #### L 500.4050, L100.0100, L501.2450 ####[facility] [address] [place], [address] Potassium [Moles/Vol] 3.8 mmol/L Normal 3.3-5.1 [facility] Comment on above: Performed By: #### L 500.4050, L100.0100, L501.2450 ####[facility] [address] [place], [address] Sodium [Moles/Vol] 139 mmol/L Normal 133-145 [facility] Comment on above: Performed By: #### L 500.4050, L100.0100, L501.2450 ####[facility] [address] [place], [address] T PROT 6.0 g/dL Normal 5.9-8.4 [facility] Comment on above: Performed By: #### L 500.4050, L100.0100, L501.2450 ####[facility] [address] [place], [address] Urea nitrogen [Mass/Vol] 4 mg/dL Normal 4-19 [facility] Comment on above: Performed By: #### L 500.4050, L100.0100, L501.2450 ####[facility] [address] [place], [address] LDHon 04-17-2025 LDH 145 U/L Normal 84-246 [facility] Comment on above: Performed By: #### L 504.2610 ####[facility] [address] [place], [address] Lipaseon 04-17-2025 Lipase [Catalytic activity/Vol] 90 U/L High 13-75 [facility] Comment on above: Result Comment: Jenny capellan note:LIPASE revised reference range effective 23.New Lipase methodology. Expected to produce lower valuesthan the previous assay method.NEW Reference Range: 13 - 75 U/L Performed By: #### L 500.4050, L100.0100, L501.2450 ####[facility] [address] [place], [place], [id number] No Panel InformationOrdered By: Bert Greenwood on 04-17-2025 11 U/L <32 [facility] Serum globulin measurementOr dered By: Bert Greenwood on 04-17-2025 Globulin (S) [Mass/Vol] 3.0 g/dL 2.2-4.2 [facility] Serum or plasma alanine pimentel otransferase (ALT) measurementOrdered By: Bert Greenwood on 04-17-2025 ALT [Catalytic activity/Vol] 9 U/L <35 [facility] Serum or plasma albumin esthela urement (mass/volume)Ordered By: Bert Greenwood on 04-17-2025 Albumin [Mass/Vol] 3.0 g/dL Low 3.4-4.8 [facility] Serum or plasma albumin/glob ulin mass ratioOrdered By: Bert Greenwood on 04-17-2025 Albumin/Globulin [Mass ratio] 1.0 {ratio} 0.9-2.4 [facility] Serum or plasma alkaline jose sphatase measurementOrdered By: Bert Greenwood on 04-17-2025 ALP [Catalytic activity/Vol] 113 U/L High 35-104 [facility] Total proteinOrdered By: Art Greenwood on 04-17-2025 Protein [Mass/Vol] 6.0 g/dL 5.9-8.4 [facility] Alcohol, Blood (Medical)-Ser umon 04-16-2025 SERUM ETOH < 10.1 Normal <=10.0 [facility] Comment on above: Result Comment: This test is for medical purposes only. The legaldefinition of intoxication varies according to local law. Performed By: #### L 501.9100, L505.5000 ####[facility] [address] [place], [place], [address] Amphetamine detection with 1 000 ng/mL as cutoffOrdered By: Jackson Chopra on 04-16-2025 Amphetamines Screen method >1000 ng/mL Ql (U) Negative < 200 ng/mL [facility] Bilirubin Test strip Ql (U)O rdered By: Erikvera Gomez on 04-16-2025 Bilirubin Ql (U) Negative Negative [facility] CBC W/Diff, Automatedon 03-29 Absolute Lymph 2.17 X10 3/uL Normal 0.83-4.51 [facility] Comment on above: Performed By: #### L 100.0100, L501.2300, L501.9520, L500.4050, L503.0106, L500.4100 ####[facility] [address] [place], [address] Absolute Neut 11.4 X10 3/uL High 2.0-7.7 [facility] Comment on above: Performed By: #### L 100.0100, L501.2300, L501.9520, L500.4050, L503.0106, L500.4100 ####[facility] [address] [place], [address] Basophils/100 WBC (Bld) 0.3 % Normal 0-1 [facility] Comment on above: Performed By: #### L 100.0100, L501.2300, L501.9520, L500.4050, L503.0106, L500.4100 ####[facility] [address] [place], [address] Eosinophils/100 WBC (Bld) 3.7 % Normal 0-5 [facility] Comment on above: Performed By: #### L 100.0100, L501.2300, L501.9520, L500.4050, L503.0106, L500.4100 ####[facility] [address] [place], [address] Erythrocyte distribution width (RBC) [Ratio] 14.7 % High 11.6-14.6 [facility] Comment on above: Performed By: #### L 100.0100, L501.2300, L501.9520, L500.4050, L503.0106, L500.4100 ####[facility] [address] [place], [address] Hematocrit (Bld) [Volume fraction] 30.1 % Low 37-47 [facility] Comment on above: Performed By: #### L 100.0100, L501.2300, L501.9520, L500.4050, L503.0106, L500.4100 ####[facility] [address] [place], [address] Hemoglobin (Bld) [Mass/Vol] 9.3 g/dL Low 12.0-15.0 [facility] Comment on above: Performed By: #### L 100.0100, L501.2300, L501.9520, L500.4050, L503.0106, L500.4100 ####[facility] [address] [place], [address] IG% 0.600 Normal 0.0-0.9 [facility] Comment on above: Result Comment: IG% - Immature Granulocytes (promyelocytes, myelocytes andmetamyelocytes) > 1% indicates that a LEFT SHIFT is Present. Performed By: #### L 100.0100, L501.2300, L501.9520, L500.4050, L503.0106, L500.4100 ####[facility] [address] [place], [address] Lymphocytes/100 WBC (Bld) 14.2 % Low 19-41 [facility] Comment on above: Performed By: #### L 100.0100, L501.2300, L501.9520, L500.4050, L503.0106, L500.4100 ####[facility] [address] [place], [address] MCH (RBC) [Entitic mass] 26.6 pg Low 27.0-32.0 [facility] Comment on above: Performed By: #### L 100.0100, L501.2300, L501.9520, L500.4050, L503.0106, L500.4100 ####[facility] [address] [place], [address] MCHC (RBC) [Mass/Vol] 30.9 g/dL Low 32-36 [facility] Comment on above: Performed By: #### L 100.0100, L501.2300, L501.9520, L500.4050, L503.0106, L500.4100 ####[facility] [address] [place], [address] MCV (RBC) [Entitic vol] 86.2 fL Normal 81-99 [facility] Comment on above: Performed By: #### L 100.0100, L501.2300, L501.9520, L500.4050, L503.0106, L500.4100 ####[facility] [address] [place], [address] Monocytes/100 WBC (Bld) 7.0 % Normal 0-10 [facility] Comment on above: Performed By: #### L 100.0100, L501.2300, L501.9520, L500.4050, L503.0106, L500.4100 ####[facility] [address] [place], [address] Neutrophils/100 WBC (Bld) 74.2 % High 47-70 [facility] Comment on above: Performed By: #### L 100.0100, L501.2300, L501.9520, L500.4050, L503.0106, L500.4100 ####[facility] [address] [place], [address] Nucleated RBC (Bld) [#/Vol] 0 10*3/uL Normal 0-5 [facility] Comment on above: Performed By: #### L 100.0100, L501.2300, L501.9520, L500.4050, L503.0106, L500.4100 ####[facility] [address] [place], [address] Platelet mean volume (Bld) [Entitic vol] 9.7 fL Normal 6.2-12.0 [facility] Comment on above: Performed By: #### L 100.0100, L501.2300, L501.9520, L500.4050, L503.0106, L500.4100 ####[facility] [address] [place], [address] Platelets (Bld) [#/Vol] 275 10*3/uL Normal 150-450 [facility] Comment on above: Performed By: #### L 100.0100, L501.2300, L501.9520, L500.4050, L503.0106, L500.4100 ####[facility] [address] [place], [address] RBC (Bld) [#/Vol] 3.49 10*6/uL Low 4.2-5.4 [facility] Comment on above: Performed By: #### L 100.0100, L501.2300, L501.9520, L500.4050, L503.0106, L500.4100 ####[facility] [address] [place], [address] RDW SD 46.5 fl High 35.1-43.9 [facility] Comment on above: Performed By: #### L 100.0100, L501.2300, L501.9520, L500.4050, L503.0106, L500.4100 ####[facility] [address] [place], [address] WBC (Bld) [#/Vol] 15.3 10*3/uL High 4.4-11.0 [facility] Comment on above: Performed By: #### L 100.0100, L501.2300, L501.9520, L500.4050, L503.0106, L500.4100 ####[facility] [address] [place], [place], [address] Calculated very low density lipoprotein (VLDL) cholesterol measurementOrdered By: Jackson Chopra on 04-16-2025 Calculated very low density lipoprotein (VLDL) cholesterol measurement 24 mg/dL [facility] Comprehensive Metabolic Prof ilon 04-16-2025 BUN/CRE 5.0 RATIO Low 07-17 [facility] Comment on above: Result Comment: AMENDED REPORT 04/16/25 0645 BUN/CRE previously reported as: 3.9 L RATIO Performed By: #### L 100.0100, L501.2300, L501.9520, L500.4050, L503.0106, L500.4100 ####[facility] [address] [place], [place], [address] Urea nitrogen [Mass/Vol] 3 mg/dL Low 01-14 [facility] Comment on above: Result Comment: AMENDED REPORT 04/16/25 0645 BUN previously reported as: 2 L mg/dL Performed By: #### L 100.0100, L501.2300, L501.9520, L500.4050, L503.0106, L500.4100 ####[facility] [address] [place], [place], [address] Folate [Mass/volume] in Seru m or PlasmaOrdered By: Jackson Chopra on 04-16-2025 Folate [Mass/Vol] 10.50 ng/mL 4.60-34.80 [facility] Folates,Serum (Folic Acid)on 04-16-2025 FOLATES,SERUM 10.50 ng/mL Normal 4.60-34.80 [facility] Comment on above: Result Comment: Hemo lysis, Results will be affected, Requires Recollection. Performed By: #### L 506.0200, L501.5200 ####[facility] [address] [place], [address] H AND P Exam - Hospitaliston 04-16-2025 H&P Exam - Hospitalist Normal [facility] Ketones Test strip Ql (U)Ord ered By: Erik Gomez on 04-16-2025 Ketones Ql (U) Negative Negative [facility] LDHon 04-16-2025 LDH 160 U/L Normal 84-246 [facility] Comment on above: Performed By: #### L 504.2610 ####[facility] [address] [place], [address] LDL calc ser/plasOrdered By: Jackson Chopra on 04-16-2025 Cholesterol in LDL [Mass/Vol] 58 mg/dL [facility] Lipid Profileon 04-16-2025 CHOL:HDL 2.78 Normal [facility] Comment on above: Performed By: #### L 100.0100, L501.2300, L501.9520, L500.4050, L503.0106, L500.4100 ####[facility] [address] [place], [address] Cholesterol [Mass/Vol] 128 mg/dL Normal <=200 [facility] Comment on above: Result Comment: Chol esterol level, Desirable <200 mg/dLBorderline high cholesterol 200-239 mg/dLHigh cholesterol >=240 mg/dLRecommendations of the NCEP Adult Treatment Panel for thefollowing risk-cutoff thresholds for the [place] Americanpopulation. Performed By: #### L 100.0100, L501.2300, L501.9520, L500.4050, L503.0106, L500.4100 ####[facility] [address] [place], [address] Cholesterol in HDL [Mass/Vol] 46 mg/dL Normal [facility] Comment on above: Result Comment: Jazlyn onal Cholesterol Education Program (NCEP) guidelines:<40 mg/dL: Low HDL-cholesterol (major risk factor for CHD)>= 60 mg/dL: High HDL-cholesterol (negative risk factor forCHD)HDL-cholesterol is affected by a number of factors, e.g.smoking, exercise, hormones, sex and age. Performed By: #### L 100.0100, L501.2300, L501.9520, L500.4050, L503.0106, L500.4100 ####[facility] [address] [place], [address] Cholesterol in LDL [Mass/Vol] 58 mg/dL Normal [facility] Comment on above: Result Comment: Bord lqlqlc=930-262 mg/dL Higher Vihr=380 mg/dL or greater Performed By: #### L 100.0100, L501.2300, L501.9520, L500.4050, L503.0106, L500.4100 ####[facility] [address] [place], [address] Cholesterol in VLDL [Mass/Vol] 24 mg/dL Normal 5-40 [facility] Comment on above: Performed By: #### L 100.0100, L501.2300, L501.9520, L500.4050, L503.0106, L500.4100 ####[facility] [address] [place], [address] Triglyceride [Mass/Vol] 122 mg/dL Normal [facility] Comment on above: Result Comment: The drugs N-Acetylcysteine and Metamizole may falselydepress this assay.Normal range: <150 mg/dLBorderline High: 150-199 mg/dLHigh: 200-499 mg/dLVery High: >500 mg/dL Performed By: #### L 100.0100, L501.2300, L501.9520, L500.4050, L503.0106, L500.4100 ####[facility] [address] [place], [address] Magnesiumon 04-16-2025 Magnesium [Mass/Vol] 1.5 mg/dL Normal 1.5-2.2 [facility] Comment on above: Performed By: #### L 506.0200, L501.5200 ####[facility] [address] [place], [address] Mucus LM Ql (Urine sed)Order ed By: Erik Gomez on 04-16-2025 Mucus Ql (Urine sed) 0 SEEN /hpf [facility] Nitrite Test strip Ql (U)Ord ered By: Erik Gomez on 04-16-2025 Nitrite Ql (U) Negative Negative [facility] No Panel InformationOrdered By: Jackson Chopra on 04-16-2025 Negative < 200 ng/mL [facility] Phosphoruson 04-16-2025 Phosphate [Mass/Vol] 4.4 mg/dL Normal 2.7-4.5 [facility] Comment on above: Performed By: #### L 100.0100, L501.2300, L501.9520, L500.4050, L503.0106, L500.4100 ####[facility] [address] [place], [address] Protein Test strip Ql (U)Ord ered By: Erik Gomez on 04-16-2025 Protein Ql (U) 15 mg/dl High Negative [facility] Screening urine fentanyl samir surementOrdered By: Jackson Chopra on 04-16-2025 fentaNYL Screen Ql (U) Negative [facility] Serum or plasma cholesterol in HDL measurement (mass/volume)Ordered By: Jackson Chopra on 04-16-2025 Cholesterol in HDL [Mass/Vol] 46 mg/dL >40 [facility] Serum or plasma cholesterol measurement (mass/volume)Ordered By: Jackson Chopra on 04-16-2025 Cholesterol [Mass/Vol] 128 mg/dL <201 [facility] Squamous epithelial cells de tection in urine sediment by light microscopyOrdered By: Erik Gomez on 04-16-2025 Epithelial cells.squamous LM Ql (Urine sed) 0-5 SEEN /hpf 5-10 [facility] TSH DL <= 0.005 mIU/L QnOrde red By: Jackson Chopra on 04-16-2025 TSH Qn 1.340 uIU/mL 0.300-4.200 [facility] Thyroid Stim Hormone (TSH)on 04-16-2025 TSH 1.340 uIU/mL Normal 0.300-4.200 [facility] Comment on above: Performed By: #### L 100.0100, L501.2300, L501.9520, L500.4050, L503.0106, L500.4100 ####[facility] [address] [place], [address] Urinalysis, Completeon 04-16 EPI,SQUAMOUS 0-5 SEEN Normal 5-10 [facility] Comment on above: Order Comment: CLEAN CATCH Performed By: #### L 400.0001 ####[facility] [address] [place], [address] WBC 0-5 SEEN Normal 0-5 [facility] Comment on above: Order Comment: CLEAN CATCH Performed By: #### L 400.0001 ####[facility] [address] [place], [address] BACTERIA 0 SEEN Normal None Seen [facility] Comment on above: Order Comment: CLEAN CATCH Performed By: #### L 400.0001 ####[facility] [address] [place], [address] Mucus Ql (Urine sed) 0 SEEN Normal [facility] Comment on above: Order Comment: CLEAN CATCH Performed By: #### L 400.0001 ####[facility] [address] [place], [address] RBC 0 SEEN Normal 0-5 [facility] Comment on above: Order Comment: CLEAN CATCH Performed By: #### L 400.0001 ####[facility] [address] [place], [address] Urine Drug Screen (VISTA)on 04-16-2025 AMPHETAMINES Negative Normal <1000 ng/mL [facility] Comment on above: Order Comment: U Performed By: #### L 501.9100, L505.5000 ####[facility] [address] [place], [address] BARBITIURATES Negative Normal < 200 ng/mL [facility] Comment on above: Order Comment: U Performed By: #### L 501.9100, L505.5000 ####[facility] [address] [place], [address] BENZODIAZIPINE Negative Normal < 200 ng/mL [facility] Comment on above: Order Comment: U Performed By: #### L 501.9100, L505.5000 ####[facility] [address] [place], [address] BUP Ur Drug Scr Negative Normal < 200 ng/mL [facility] Comment on above: Order Comment: U Performed By: #### L 501.9100, L505.5000 ####[facility] [address] [place], [address] COCAINE Negative Normal < 300 ng/mL [facility] Comment on above: Order Comment: U Performed By: #### L 501.9100, L505.5000 ####[facility] [address] [place], [address] Fentanyl Negative Normal [facility] Comment on above: Order Comment: U Performed By: #### L 501.9100, L505.5000 ####[facility] [address] [place], [address] METHADONE Negative Normal < 300 ng/mL [facility] Comment on above: Order Comment: U Performed By: #### L 501.9100, L505.5000 ####[facility] [address] [facility] [address] OPIATES Positive Normal < 300 ng/mL [facility] Comment on above: Order Comment: U Result Comment: If c onfirmation testing is needed, a separate order will berequired to send out testing to the reference laboratory. Performed By: #### L 501.9100, L505.5000 ####[facility] [address] [place], [address] OXYCODONE Negative Normal < 100 ng/mL [facility] Comment on above: Order Comment: U Performed By: #### L 501.9100, L505.5000 ####[facility] [address] [place], [address] PCP Negative Normal < 25 ng/mL [facility] Comment on above: Order Comment: U Performed By: #### L 501.9100, L505.5000 ####[facility] [address] [place], [address] THC Negative Normal < 50 ng/mL [facility] Comment on above: Order Comment: U Performed By: #### L 501.9100, L505.5000 ####[facility] [address] [place], [address] Urine clarityOrdered By: Di Gomez on 04-16-2025 Clarity (U) Clear Clear [facility] Urine color determinationOrd ered By: Erik Gomez on 04-16-2025 Color (U) Yellow Yellow [facility] Urine glucose detectionOrder ed By: Erik Gomez on 04-16-2025 Glucose Ql (U) Normal mg/dl Normal [facility] Urine leukocyte esterase det ection by dipstickOrdered By: Erik Gomez on 04-16-2025 Leukocyte esterase Test strip Ql (U) 25 /ul High Negative [facility] Urine pHOrdered By: Erik Gomez on 04-16-2025 pH (U) 7.0 [pH] 5.0 - 8.0 [facility] Urine phencyclidine (PCP) de tectionOrdered By: Jackson Chopra on 04-16-2025 Phencyclidine Ql (U) Negative < 25 ng/mL [facility] Urine sediment bacteria coun t by microscopy (number/high power field)Ordered By: Erik Gomez on 04-16-2025 Bacteria LM.HPF (Urine sed) [#/Area] 0 /[HPF] None Seen [facility] Urine specific gravity measu rementOrdered By: Erik Gomez on 04-16-2025 Specific gravity (U) [Rel density] 1.005 1.002-1.030 [facility] Urine urobilinogen measureme ntOrdered By: Erik Gomez on 04-16-2025 Urobilinogen Ql (U) Normal mg/dl Normal [facility] Vitamin B12on 04-16-2025 Cobalamin (Vitamin B12) [Mass/Vol] 415 pg/mL Normal 180-914 [facility] Comment on above: Performed By: #### L 100.0100, L501.2300, L501.9520, L500.4050, L503.0106, L500.4100 ####[facility] [address] [place], [place], [id number] Vitamin B12 ser/plasOrdered By: Jackson Chopra on 04-16-2025 Cobalamin (Vitamin B12) [Mass/Vol] 415 pg/mL 180-914 [facility] White blood cell countOrdere d By: Erik Gomez on 04-16-2025 White blood cell count 0-5 SEEN /hpf 0-5 [facility] Abdomen/Pelvis W IV Cont ONL Yon 04-15-2025 Abdomen/Pelvis W IV Cont ONLY Normal [facility] Absolute lymphocyte countOrd ered By: Erik Gomez on 04-15-2025 Lymphocytes Auto (Unsp spec) [#/Vol] 2.76 10*3/uL 0.83-4.51 [facility] Anion gap in Serum or Plasma Ordered By: Erik Gomez on 04-15-2025 Anion gap [Moles/Vol] 11 mmol/L 5-15 [facility] Automated lymphocyte count a s percentage of total leukocytesOrdered By: Erik Gomez on 04-15-2025 Lymphocytes/100 WBC Auto (Unsp spec) 14.6 % Low 19-41 [facility] BUN/creatinine ratioOrdered By: Erik Gomez on 04-15-2025 Urea nitrogen/Creatinine [Mass ratio] 5.3 mg/mg Low 10-20 [facility] Basophil percentageOrdered B y: Erik Gomez on 04-15-2025 Basophils/100 WBC (Bld) 0.4 % 0-1 [facility] Bilirubin, totalOrdered By: Erik Gomez on 04-15-2025 Bilirubin [Mass/Vol] mg/dL 0.00-1.30 [facility] CBC W/Diff, Automatedon 03-28 Absolute Lymph 2.76 X10 3/uL Normal 0.83-4.51 [facility] Comment on above: Performed By: #### L 501.2450, L500.4050, L100.0100 ####[facility] [address] [place], [address] Absolute Neut 13.6 X10 3/uL High 2.0-7.7 [facility] Comment on above: Performed By: #### L 501.2450, L500.4050, L100.0100 ####[facility] [address] [place], [address] Basophils/100 WBC (Bld) 0.4 % Normal 0-1 [facility] Comment on above: Performed By: #### L 501.2450, L500.4050, L100.0100 ####[facility] [address] [place], [address] Eosinophils/100 WBC (Bld) 4.9 % Normal 0-5 [facility] Comment on above: Performed By: #### L 501.2450, L500.4050, L100.0100 ####[facility] [address] [place], [address] Erythrocyte distribution width (RBC) [Ratio] 14.6 % Normal 11.6-14.6 [facility] Comment on above: Performed By: #### L 501.2450, L500.4050, L100.0100 ####[facility] [address] [place], [address] Hematocrit (Bld) [Volume fraction] 33.6 % Low 37-47 [facility] Comment on above: Performed By: #### L 501.2450, L500.4050, L100.0100 ####[facility] [address] [place], [address] Hemoglobin (Bld) [Mass/Vol] 10.7 g/dL Low 12.0-15.0 [facility] Comment on above: Performed By: #### L 501.2450, L500.4050, L100.0100 ####[facility] [address] [place], [address] IG% 0.700 Normal 0.0-0.9 [facility] Comment on above: Result Comment: IG% - Immature Granulocytes (promyelocytes, myelocytes andmetamyelocytes) > 1% indicates that a LEFT SHIFT is Present. Performed By: #### L 501.2450, L500.4050, L100.0100 ####[facility] [address] [place], [address] Lymphocytes/100 WBC (Bld) 14.6 % Low 19-41 [facility] Comment on above: Performed By: #### L 501.2450, L500.4050, L100.0100 ####[facility] [address] [place], [address] MCH (RBC) [Entitic mass] 26.6 pg Low 27.0-32.0 [facility] Comment on above: Performed By: #### L 501.2450, L500.4050, L100.0100 ####[facility] [address] [place], [address] MCHC (RBC) [Mass/Vol] 31.8 g/dL Low 32-36 [facility] Comment on above: Performed By: #### L 501.2450, L500.4050, L100.0100 ####[facility] [address] [place], [address] MCV (RBC) [Entitic vol] 83.6 fL Normal 81-99 [facility] Comment on above: Performed By: #### L 501.2450, L500.4050, L100.0100 ####[facility] [address] [place], [address] Monocytes/100 WBC (Bld) 7.0 % Normal 0-10 [facility] Comment on above: Performed By: #### L 501.2450, L500.4050, L100.0100 ####[facility] [address] [place], [address] Neutrophils/100 WBC (Bld) 72.4 % High 47-70 [facility] Comment on above: Performed By: #### L 501.2450, L500.4050, L100.0100 ####[facility] [address] [place], [address] Nucleated RBC (Bld) [#/Vol] 0 10*3/uL Normal 0-5 [facility] Comment on above: Performed By: #### L 501.2450, L500.4050, L100.0100 ####[facility] [address] [place], [address] Platelet mean volume (Bld) [Entitic vol] 9.5 fL Normal 6.2-12.0 [facility] Comment on above: Performed By: #### L 501.2450, L500.4050, L100.0100 ####[facility] [address] [place], [address] Platelets (Bld) [#/Vol] 291 10*3/uL Normal 150-450 [facility] Comment on above: Performed By: #### L 501.2450, L500.4050, L100.0100 ####[facility] [address] [place], [address] RBC (Bld) [#/Vol] 4.02 10*6/uL Low 4.2-5.4 [facility] Comment on above: Performed By: #### L 501.2450, L500.4050, L100.0100 ####[facility] [address] [place], [address] RDW SD 45.1 fl High 35.1-43.9 [facility] Comment on above: Performed By: #### L 501.2450, L500.4050, L100.0100 ####[facility] [address] [place], [address] WBC (Bld) [#/Vol] 18.9 10*3/uL High 4.4-11.0 [facility] Comment on above: Performed By: #### L 501.2450, L500.4050, L100.0100 ####[facility] [address] [place], [address] Carbon dioxide, total [Moles /volume] in Central venous bloodOrdered By: Erik Gomez on 04-15-2025 CO2 [Moles/Vol] 27.4 mmol/L 21.0-32.0 [facility] Chloride assayOrdered By: John Gomez on 04-15-2025 Chloride [Moles/Vol] 99 mmol/L 98-108 [facility] Comprehensive Metabolic Prof ilon 04-15-2025 Albumin [Mass/Vol] 3.4 g/dL Normal 3.4-4.8 [facility] Comment on above: Performed By: #### L 501.2450, L500.4050, L100.0100 ####[facility] [address] [place], [address] Albumin/Globulin [Mass ratio] 1.0 {ratio} Normal 0.9-2.4 [facility] Comment on above: Performed By: #### L 501.2450, L500.4050, L100.0100 ####[facility] [address] [place], [address] ALK PHOS 127 U/L High 35-104 [facility] Comment on above: Performed By: #### L 501.2450, L500.4050, L100.0100 ####[facility] [address] [place], [address] ALT [Catalytic activity/Vol] 13 U/L Normal <=34 [facility] Comment on above: Performed By: #### L 501.2450, L500.4050, L100.0100 ####[facility] [address] [place], [address] AST [Catalytic activity/Vol] 16 U/L Normal <=31 [facility] Comment on above: Performed By: #### L 501.2450, L500.4050, L100.0100 ####[facility] [address] [place], [address] BUN/CRE 5.3 RATIO Low 10-20 [facility] Comment on above: Performed By: #### L 501.2450, L500.4050, L100.0100 ####[facility] [address] [place], [address] Calcium [Mass/Vol] 9.2 mg/dL Normal 7.6-11.0 [facility] Comment on above: Performed By: #### L 501.2450, L500.4050, L100.0100 ####[facility] [address] [place], [address] Chloride [Moles/Vol] 99 mmol/L Normal 98-108 [facility] Comment on above: Performed By: #### L 501.2450, L500.4050, L100.0100 ####[facility] [address] [place], [address] CO2 [Moles/Vol] 27.4 mmol/L Normal 21.0-32.0 [facility] Comment on above: Performed By: #### L 501.2450, L500.4050, L100.0100 ####[facility] [address] [place], [address] Creatinine [Mass/Vol] 0.69 mg/dL Low 0.70-1.20 [facility] Comment on above: Performed By: #### L 501.2450, L500.4050, L100.0100 ####[facility] [address] [place], [address] ECRCL 70.83 ml/min Normal 50-250 [facility] Comment on above: Performed By: #### L 501.2450, L500.4050, L100.0100 ####[facility] [address] [place], [address] GAP 11 Normal 5-15 [facility] Comment on above: Performed By: #### L 501.2450, L500.4050, L100.0100 ####[facility] [address] [place], [address] GFR/1.73 sq M.predicted among non-blacks MDRD (S/P/Bld) [Vol rate/Area] 99 mL/min/{1.73_m2} Normal >60 [facility] Comment on above: Result Comment: mL/m in/1.73m2 CKD-EPI Creatinine Equation (2020) Performed By: #### L 501.2450, L500.4050, L100.0100 ####[facility] [address] [place], [address] Globulin (S) [Mass/Vol] 3.5 g/dL Normal 2.2-4.2 [facility] Comment on above: Performed By: #### L 501.2450, L500.4050, L100.0100 ####[facility] [address] [place], [address] Glucose [Mass/Vol] 111 mg/dL High 70-99 [facility] Comment on above: Performed By: #### L 501.2450, L500.4050, L100.0100 ####[facility] [address] [place], [address] Potassium [Moles/Vol] 3.6 mmol/L Normal 3.3-5.1 [facility] Comment on above: Result Comment: Hemo lysis present, Results??could be affected.?? Performed By: #### L 501.2450, L500.4050, L100.0100 ####[facility] [address] [place], [address] Sodium [Moles/Vol] 138 mmol/L Normal 133-145 [facility] Comment on above: Performed By: #### L 501.2450, L500.4050, L100.0100 ####[facility] [address] [place], [address] T BILI < 0.15 Normal 0.00-1.30 [facility] Comment on above: Performed By: #### L 501.2450, L500.4050, L100.0100 ####[facility] [address] [place], [address] T PROT 6.9 g/dL Normal 5.9-8.4 [facility] Comment on above: Performed By: #### L 501.2450, L500.4050, L100.0100 ####[facility] [address] [place], [address] Urea nitrogen [Mass/Vol] 4 mg/dL Normal - [facility] Comment on above: Performed By: #### L 501.2450, L500.4050, L100.0100 ####[facility] [address] [place], [place], [id number] Emergency Department Summary on 04-15-2025 Emergency Department Summary Normal [facility] Eosinophil percentageOrdered By: Erikvera Gomez on 04-15-2025 Eosinophils/100 WBC (Bld) 4.9 % 0-5 [facility] Erythrocyte distribution wid th ratioOrdered By: [facility] Erythrocyte distribution width (RBC) [Ratio] 14.6 % 11.6-14.6 [facility] Erythrocyte distribution wid th standard deviationOrdered By: [facility] on 04-15-2025 Erythrocyte distribution width (RBC) [Ratio] 45.1 fl High 35.1-43.9 [facility] Glomerular filtration rate ( GFR) estimation/1.73 sq m using serum, plasma, or whole bOrdered By: Erikvera Gomez on 04-15-2025 GFR/1.73 sq M.predicted among non-blacks MDRD (S/P/Bld) [Vol rate/Area] 99 mL/min/{1.73_m2} >60 [facility] Hematocrit Auto (Bld) [Volum e fraction]Ordered By: Erik Gomez on 04-15-2025 Hematocrit (Bld) [Volume fraction] 33.6 % Low 37-47 [facility] Hemoglobin measurementOrdere d By: Erik Gomez on 04-15-2025 Hemoglobin (Bld) [Mass/Vol] 10.7 g/dL Low 12.0-15.0 [facility] Immature granulocytes/100 WB C Auto (Bld)Ordered By: Erik Gomez on 04-15-2025 Immature granulocytes/100 WBC (Bld) 0.700 % 0.0-0.9 [facility] Lipaseon 04-15-2025 Lipase [Catalytic activity/Vol] 239 U/L High 13-75 [facility] Comment on above: Result Comment: Jenny capellan note:LIPASE revised reference range effective 23.New Lipase methodology. Expected to produce lower valuesthan the previous assay method.NEW Reference Range: 13 - 75 U/L Performed By: #### L 501.2450, L500.4050, L100.0100 ####[facility] [id number] [place], [address] MCV (mean corpuscular volume ) determinationOrdered By: Erik Gomez on 04-15-2025 MCV (RBC) [Entitic vol] 83.6 fL 81-99 [facility] Magnesium measurement (mass/ volume)Ordered By: Jackson Chopra on 04-15-2025 Magnesium (Unsp spec) [Mass/Vol] 1.5 mg/dL 1.5-2.2 [facility] Mean corpuscular hemoglobin (MCH) determinationOrdered By: Erik Gomez on 04-15-2025 MCH (RBC) [Entitic mass] 26.6 pg Low 27.0-32.0 [facility] Monocyte percentageOrdered B y: Erik Gomez on 04-15-2025 Monocytes/100 WBC (Bld) 7.0 % 0-10 [facility] Neutrophil percentageOrdered By: Erik Gomez on 04-15-2025 Neutrophils/100 WBC (Bld) 72.4 % High 47-70 [facility] No Panel InformationOrdered By: Erik Gomez on 04-15-2025 16 U/L <32 [facility] Platelet countOrdered By: John Gomez on 04-15-2025 Platelets (Bld) [#/Vol] 291 10*3/uL 150-450 [facility] Potassium measurement (mass/ volume)Ordered By: Erik Gomez on 04-15-2025 Potassium (Unsp spec) [Mass/Vol] 3.6 mmol/L 3.3-5.1 [facility] RBC Auto (Bld) [#/Vol]Ordere d By: Erik Gomez on 04-15-2025 RBC (Bld) [#/Vol] 4.02 10*6/uL Low 4.2-5.4 [facility] Serum creatinine measurement (mass/volume)Ordered By: Erik Gomez on 04-15-2025 Creatinine [Mass/Vol] 0.69 mg/dL Low 0.70-1.20 [facility] Serum globulin measurementOr dered By: Erik Gomez on 04-15-2025 Globulin (S) [Mass/Vol] 3.5 g/dL 2.2-4.2 [facility] Serum glucose measurement (m ass/volume)Ordered By: Erik Gomez on 04-15-2025 Glucose [Mass/Vol] 111 mg/dL High 70-99 [facility] Serum or plasma alanine pimentel otransferase (ALT) measurementOrdered By: Erik Gomez on 04-15-2025 ALT [Catalytic activity/Vol] 13 U/L <35 [facility] Serum or plasma albumin esthela urement (mass/volume)Ordered By: Erik Gomez on 04-15-2025 Albumin [Mass/Vol] 3.4 g/dL 3.4-4.8 [facility] Serum or plasma albumin/glob ulin mass ratioOrdered By: Erik Gomez on 04-15-2025 Albumin/Globulin [Mass ratio] 1.0 {ratio} 0.9-2.4 [facility] Serum or plasma alkaline jose sphatase measurementOrdered By: Erik Gomez on 04-15-2025 ALP [Catalytic activity/Vol] 127 U/L High 35-104 [facility] Serum or plasma calcium esthela urement (mass/volume)Ordered By: Erik Gomez on 04-15-2025 Calcium [Mass/Vol] 9.2 mg/dL 7.6-11.0 [facility] Serum or plasma ethanol esthela urement (mass/volume)Ordered By: Jackson Chopra on 04-15-2025 Ethanol [Mass/Vol] mg/dL <10.1 [facility] Serum or plasma urea nitroge n measurement (mass/volume)Ordered By: Erik Gomez on 04-15-2025 Urea nitrogen [Mass/Vol] 4 mg/dL 4-19 [facility] Sodium levelOrdered By: Meet Gomez on 04-15-2025 Sodium [Moles/Vol] 138 mmol/L 133-145 [facility] Total proteinOrdered By: Di Gomez on 04-15-2025 Protein [Mass/Vol] 6.9 g/dL 5.9-8.4 [facility] White blood cell (WBC) count Ordered By: Erik Gomez on 04-15-2025 WBC (Bld) [#/Vol] 18.9 10*3/uL High 4.4-11.0 [facility] CNPNon 04-11-2025 CNPN Telephone (PODCCP) -------- GRACIE BANUELOS ([id number]) 1965 F Date Time Provider Department 04/11/25 MISBAH ELKINS PODCCP During your visit today, we recorded the following information about you: Yuly France 04/11/2025 9:34 AM Signed Transitional Care Management (TCM) [facility] Provider Action / FYI: na SUMMARY: Outreach type: INITIAL OUTREACH Discharge Network Status: In-Network Discharge Source of Patient: [facility] TCM Discharge Report Patient discharged from [facility] on 03.23.25. Admitted for acute on chronic respiratory failure with hypoxia. . . . . Contact made with patient: No - 2nd unsuccessful attempt - end outreach and close encounter. Yuly France April 11, 2025 9:34 AM Allergies As of Date: 04/11/2025 Noted Allergy Reaction BACTRIM (SULFAMETHOXAZOLE-TRIMET H*11/28/2022 4 - Hives HYDROCODONE 08/02/2020 9 - [...] stress female [N39.3] 11/24/2014 HPV test positive [[id number]] 11/24/2014 Alcohol dependence in remission (HCC) [F10.21] [...] with hypox*03/15 (more content not included)... Normal [facility] CNOVon 04-10-2025 CNOV Office Visit (INTMWS ) -------- GRACIE BANUELOS ([id number]) 1965 F Date Time Provider Department 04/10/25 1:40 PM NICOLAS GREER INTMWS During your visit today, we recorded the following information about you: Pulse Respiration Blood pressure Weight 100/minute 16/minute 102/82 56 kg Nicolas Greer, TRANSMISSIONS SYSTEMS OPERATOR.[facility] 04/10/2025 2:31 PM Signed Subjective Patient ID: [...] stent placement 03/10. Patient was transferred from [facility]. There she was found to have acute pancreatitis. She had a stent placed in the body of the pancreas however on CT scan at the other hospital she had new peripancreatic inflammation. She was also experiencing acute hypoxic respiratory failure and was emergently intubated and transferred to [facility] ICU. 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 Pancreatic Stent Placement: - Stent placed by Dr. Garrido at [facility]. - Persistent abdominal pain radiating to the [...] following stent placement led to hospitalization at [facility], then transferred to [facility] due to fluid overload and septic [...] - 6.0 (more content not included)... Normal [facility] CNPNon 04-10-2025 CNPN Telephone (PODCCP) -------- GRACIE BANUELOS ([id number]) 1965 F Date Time Provider Department 04/10/25 MISBAH ELKINS PODCC During your visit today, we recorded the following information about you: Yuly France 04/10/2025 9:37 AM Signed Transitional Care Management (TCM) [facility] Provider Action / FYI: na SUMMARY: Outreach type: INITIAL OUTREACH Discharge Network Status: In-Network Discharge Source of Patient: [facility] TCM Discharge Report Patient discharged from [facility] on 03.23.25. Admitted for acute on chronic respiratory failure with hypoxia. . . . Contact made with patient: No - next outreach attempt will be on next . Yuly France April 10, 2025 9:37 AM Allergies As of Date: 04/10/2025 Noted Allergy Reaction BACTRIM (SULFAMETHOXAZOLE-TRIMET H*11/28/2022 4 - Hives HYDROCODONE 08/02/2020 9 - [...] stress female [N39.3] 11/24/2014 HPV test positive [[id number]] 11/24/2014 Alcohol dependence in remission (HCC) [F10.21] [...] [K85.90, K8*0 (more content not included)... Normal [facility] Pulmonary Visit Reporton Pulmonary Visit Report Normal [facility] CNPNon 04-04-2025 CNPN Telephone (INTMWS) -------- GRACIE BANUELOS ([id number]) 1965 F Date Time Provider Department 04/04/25 [...] of Date: 04/04/2025 Noted Allergy Reaction BACTRIM (SULFAMETHOXAZOLE-TRIMET H*11/28/2022 4 - Hives HYDROCODONE 08/02/2020 9 - [...] stress female [N39.3] 11/24/2014 HPV test positive [[id number]] 11/24/2014 Alcohol dependence in remission (HCC) [F10.21] [...] Pneumonia [ (more content not included)... Normal [facility] CNPN Telephone (PODCCP) -------- GRACIE BANUELOS ([id number]) 1965 F Date Time Provider Department 04/04/25 MISBAH ELKINS PODCCP During your visit today, we recorded the following information about you: Yuly France 04/04/2025 9:47 AM Signed Transitional Care Management (TCM) [facility] Provider Action / FYI: na SUMMARY: Outreach type: INITIAL OUTREACH Discharge Network Status: In-Network Discharge Source of Patient: [facility] TCM Discharge Report Patient discharged from [facility] on 03.23.25. Admitted for acute on chronic respiratory failure with hypoxia. . Contact made with patient: No - 2nd unsuccessful attempt - end outreach and close encounter. Yuly France April 04, 2025 9:47 AM Allergies As of Date: 04/04/2025 Noted Allergy Reaction BACTRIM (SULFAMETHOXAZOLE-TRIMET H*11/28/2022 4 - Hives HYDROCODONE 08/02/2020 9 - Itching PENICILLINS 07/07/2006 14 - Other: See Comments Comments: hives VALIUM (DIAZEPAM) 11/02/2013 14 - Other: See Comments Comments: cross reaction with alcohol addiction Date Reviewed: 03/23/2025 Reviewed by: Kerri Aaron RN - Fully Assessed Reason for Visit: Transition Of Care [4088] Prescriptions as of 04/04/2025 - albuterol HFA [...] stress female [N39.3] 11/24/2014 HPV test positive [[id number]] 11/24/2014 Alcohol dependence in remission (HCC) [F10.21] [...] [K85.90, K8 (more content not included)... [facility] GRACIE BANUELOS ([id number]) 1965 F Date Time Provider Department 04/04/25 MISBAH ELKINS 4CQ During your visit today, we recorded the following information about you: Rosy Blancas 04/04/2025 3:15 PM Signed Transitional Care Management (TCM) [facility] Provider Action / FYI: NA SUMMARY: Outreach type: INITIAL OUTREACH Discharge Network Status: In-Network Discharge Source of Patient: [facility] TCM Discharge Report Patient discharged from [facility] on 03.23.25. Admitted for acute on chronic respiratory failure with hypoxia. . . Contact made with patient: No, for Follow-up - end outreach and close encounter. Rosy Blancas April 04, 2025 3:15 PM Allergies As of Date: 04/04/2025 Noted Allergy Reaction BACTRIM (SULFAMETHOXAZOLE-TRIMET H*11/28/2022 4 - Hives HYDROCODONE 08/02/2020 9 - Itching PENICILLINS 07/07/2006 14 - Other: See Comments Comments: hives VALIUM (DIAZEPAM) 11/02/2013 14 - Other: See Comments Comments: cross reaction with alcohol addiction Date Reviewed: 03/23/2025 Reviewed by: Kerri Aaron RN - Fully Assessed Reason for Visit: Transition Of Care [2813] Cmt: Left V/m Prescriptions as of 04/04/2025 [...] stress female [N39.3] 11/24/2014 HPV test positive [[id number]] 11/24/2014 Alcohol dependence in remission (HCC) [F10.21] [...] [K85.90, K8 (more content not included)... Normal [facility] CNPN Telephone (NEPREM) -------- GRACIE BANUELOS ([id number]) 1965 F Date Time Provider Department 04/04/25 MILLY SALEH During your visit today, we recorded the following information about you: Nellie Duke 04/04/2025 2:30 PM Signed Patient unaware that her appt with Milly today was cancelled and she is looking to reschedule, please advise. Allergies As of Date: 04/04/2025 Noted Allergy Reaction BACTRIM (SULFAMETHOXAZOLE-TRIMET H*11/28/2022 4 - Hives HYDROCODONE 08/02/2020 9 - [...] stress female [N39.3] 11/24/2014 HPV test positive [[id number]] 11/24/2014 Alcohol dependence in remission (HCC) [F10.21] [...] Number: 9 (more content not included)... 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 Patient is not sure if it [...] this could be done at [facility]- I explained that if there was an advanced endoscopist available - yes. She could also have this performed at [facility] for stent management- if this was closer for her- She will notify us. MCKENNA eL Ida 04/07/2025 11:23 AM Signed This patient is on our call list / scheduling pool to schedule at [facility]. We do not have Monitored Anesthesia Care available in [place]. we only do procedural sedation and will not do ERCP in our out patient surgery center. Please have someone from your office explain this to patient and schedule appropriately. When I spoke with patient she was very confused about the procedure she thought she was getting an EGD under procedural sedation. Call patient @ [phone] Allergies As of Date: 03/29/2025 Noted Allergy Reaction BACTRIM (SULFAMETHOXAZOLE-TRIMET H*11/28/2022 4 - Hives HYDROCODONE 08/02/2020 9 - Itching PENICILLINS 07/07/2006 14 - Other: See Comments Comments: hives VALIUM (DIAZEPAM) 11/02/2013 14 - Other: See Comments Comments: cross reaction with alcohol addiction Date Reviewed: 03/23/2025 Reviewed by: Kerri Aaron RN - Fully Assessed Reason for Visit: Patient Question [0587] Prescriptions as of 04/07/2025 - albuterol HFA [...] [K70.10] 11/16/2013 (more content not included)... Normal [facility] CNPNon 03-28-2025 CNPN Telephone (PODCCP) -------- GRACIE BANUELOS ([id number]) 1965 F Date Time Provider Department 03/28/25 HERMAN NEVAREZ PODCCP During your visit today, we recorded the following information about you: Herman Nevarez RN 03/28/2025 1:05 PM Signed Transitional Care Management (TCM) [facility] Provider Action / FYI: N/A SUMMARY: Outreach type: INITIAL OUTREACH Discharge Network Status: In-Network Discharge Source of Patient: [facility] TCM Discharge Report Patient discharged from [facility] on 03/23/25. Admitted for acute on chronic respiratory failure with hypoxia. Contact made with patient: No - next outreach attempt will be on next business day. Herman Nevarez RN March 28, 2025 1:04 PM Allergies As of Date: 03/28/2025 Noted Allergy Reaction BACTRIM (SULFAMETHOXAZOLE-TRIMET H*11/28/2022 4 - Hives HYDROCODONE 08/02/2020 9 - [...] stress female [N39.3] 11/24/2014 HPV test positive [[id number]] 11/24/2014 Alcohol dependence in remission (HCC) [F10.21] [...] chronic pancre (more content not included)... Normal [facility] Basic metabolic 2000 panelon 03-23-2025 Anion gap [Moles/Vol] 7 mmol/L Normal 5-16 [facility] Comment on above: Order Comment: Reggie fajardo Type: BLOOD SPECIMEN Ordering Facility: [facility] Address: [address] [place] [address] Performed By: #### 2 4323-8, 3040-3, 16984-1, 2777-1, 2570-8 #### [facility] CLIA [id number] [address] [place] [address] [place] Calcium [Mass/Vol] 9.2 mg/dL Normal 8.5-10.5 [facility] Comment on above: Order Comment: Reggie fajardo Type: BLOOD SPECIMEN Ordering Facility: [facility] Address: [address] [place], [place] [address] Performed By: #### 2 4323-8, 3040-3, 33079-2, 277-1, 2570-8 #### [facility] CLIA [id number] [address] [place], [place] [address] [place] Chloride [Moles/Vol] 101 mmol/L Normal 98-107 [facility] Comment on above: Order Comment: Kettyi men Type: BLOOD SPECIMEN Ordering Facility: [facility] Address: [address] [place], [place] [address] Performed By: #### 2 4323-8, 3040-3, 26724-4, 7-1, 257-8 #### [facility] CLIA [id number] [address] [place] [address] [place] CO2 [Moles/Vol] 29 mmol/L Normal 21-32 [facility] Comment on above: Order Comment: Speci tana Type: BLOOD SPECIMEN Ordering Facility: [facility] Address: [address] [place] [address] Performed By: #### 2 4323-8, 3040-3, 98459-2, 2776-09, 2571-04 #### [facility] CLIA [id number] [address] [place] [address] [place] Creatinine [Mass/Vol] 0.89 mg/dL Normal 0.51-0.95 [facility] Comment on above: Order Comment: Specmiya fajardo Type: BLOOD SPECIMEN Ordering Facility: [facility] Address: [address] [place] [address] Result Comment: Gretta ents receiving either N-Acetylcysteine (NAC) or Metamizole prior to venipuncture, may have falsely depressed results. Performed By: #### 2 4323-8, 3040-3, 17281-6, 2776-09, 2571-04 #### [facility] CLIA [id number] [address] [place] [address] [place] Creatinine and Glomerular filtration rate.predicted panel (S/P/Bld) 74 mL/min/1.73m??? Normal >=60 [facility] Comment on above: Order Comment: Reggie fajardo Type: BLOOD SPECIMEN Ordering Facility: [facility] Address: [address] [place] [address] Result Comment: Pavan mated Glomerular Filtration Rate [...] GFR. Performed By: #### 2 4323-8, 3040-3, 16233-3, 2776-09, 2571-04 #### [facility] CLIA [id number] [address] [place], [place] [address] [place] Glucose [Mass/Vol] 109 mg/dL High 70-100 [facility] Comment on above: Order Comment: Reggie fajardo Type: BLOOD SPECIMEN Ordering Facility: [facility] Address: [address] [place] [address] Result Comment: The [place] Diabetes [employer] (ADA) provides guidance for cutoff [...] Standards of Medical Care in Diabetes 2016, [place] [employer]. Diabetes Care. 2016.39(Suppl 1). Results may be falsely elevated after the administration of Sulfapyridine. Results may be falsely depressed after the administration of Sulfasalazine. Performed By: #### 2 4323-8, 3040-3, 24687-5, 2776-09, 2571-04 #### [facility] CLIA [id number] [address] [place], [place] [address] [place] Potassium [Moles/Vol] 4.9 mmol/L Normal 3.5-5.1 [facility] Comment on above: Order Comment: Reggie fajardo Type: BLOOD SPECIMEN Ordering Facility: [facility] Address: [address] [place] [address] Performed By: #### 2 4323-8, 3040-3, 03682-2, 2776-09, 2571-04 #### [facility] CLIA [id number] [address] [place], [place] [address] [place] Sodium [Moles/Vol] 137 mmol/L Normal 136-145 [facility] Comment on above: Order Comment: Kettyi men Type: BLOOD SPECIMEN Ordering Facility: [facility] Address: [facility] [place] [address] Performed By: #### 2 4323-8, 3040-3, 71547-4, 2776-1, 8 #### [facility] CLIA [id number] [address] [place], [place] [address] [place] Urea nitrogen [Mass/Vol] 15 mg/dL Normal 04-22 [facility] Comment on above: Order Comment: Speci men Type: BLOOD SPECIMEN Ordering Facility: [facility] Address: [address] [place] [address] [place] [address] Performed By: #### 2 4323-8, 3040-3, 46377-9, 2776-1, 8 #### [facility] CLIA [id number] [address] [place], [place] [address] [place] CBC panel Auto (Bld)on 03-23 Erythrocyte distribution width (RBC) [Ratio] 15.8 % High 11.5-15.0 [facility] Comment on above: Order Comment: Speci men Type: BLOOD SPECIMEN Ordering Facility: [facility] Address: [facility] [place] [address] Performed By: #### 2 4323-8, 3040-3, 31663-0, 1, 8 #### [facility] CLIA [id number] [address] [place], [place] [address] [place] Hematocrit (Bld) [Volume fraction] 30.7 % Low 36.0-46.0 [facility] Comment on above: Order Comment: Speci men Type: BLOOD SPECIMEN Ordering Facility: [facility] Address: [address] [place] [address] Performed By: #### 2 4323-8, 3040-3, 11519-0, 2776-1, 257-8 #### [facility] CLIA [id number] [address] [place], [place] [address] [place] Hemoglobin (Bld) [Mass/Vol] 9.3 g/dL Low 11.5-15.5 [facility] Comment on above: Order Comment: Speci men Type: BLOOD SPECIMEN Ordering Facility: [facility] Address: [address] [place] [address] [place] [address] Performed By: #### 2 4323-8, 3040-3, 32015-5, 2776-1, 257-8 #### [facility] CLIA [id number] [address] [place], [place] [address] [place] [facility] MCH (RBC) [Entitic mass] 26.7 pg Normal 26.0-34.0 [facility] Comment on above: Order Comment: Speci men Type: BLOOD SPECIMEN Ordering Facility: [facility] Address: [address] [place] [address] Performed By: #### 2 4323-8, 0-3, 77311-2, 2776-, 8 #### [facility] CLIA [id number] [address] [place] [address] [place] MCHC (RBC) [Mass/Vol] 30.3 g/dL Low 30.5-36.0 [facility] Comment on above: Order Comment: Speci men Type: BLOOD SPECIMEN Ordering Facility: [facility] Address: [address] [place] [address] Performed By: #### 2 4323-8, 0-3, 65953-6, 2776-1, 257-8 #### [facility] CLIA [id number] [address] [place] [address] [place] MCV (RBC) [Entitic vol] 88.2 fL Normal 80.0-100.0 [facility] Comment on above: Order Comment: Speci men Type: BLOOD SPECIMEN Ordering Facility: [facility] Address: [address] [place], [place] [address] Performed By: #### 2 4323-8, 3040-3, 72858-2, 2776-1, 257-8 #### [facility] CLIA [id number] [address] [place], [place] [address] [place] Nucleated RBC (Bld) [#/Vol] 10*3/uL Normal <0.01 [facility] Comment on above: Order Comment: Speci men Type: BLOOD SPECIMEN Ordering Facility: [facility] Address: [address] [place] [address] Performed By: #### 2 4323-8, 3040-3, 35265-9, 2777-1, 2571-8 #### [facility] CLIA [id number] [address] [place], [place] [address] [place] Platelet mean volume (Bld) [Entitic vol] 10.4 fL Normal 9.0-12.7 [facility] Comment on above: Order Comment: Speci men Type: BLOOD SPECIMEN Ordering Facility: [facility] Address: [address] [place] [address] Performed By: #### 2 4323-8, 3040-3, 70610-8, 2777-1, 2571-8 #### [facility] CLIA [id number] [address] [place] [address] [place] Platelets (Bld) [#/Vol] 373 10*3/uL Normal 150-400 [facility] Comment on above: Order Comment: Speci men Type: BLOOD SPECIMEN Ordering Facility: [facility] Address: [address] [place] [address] Performed By: #### 2 4323-8, 3040-3, 00199-8, 2777-1, 2571-8 #### [facility] CLIA [id number] [address] [place], [place] [address] [place] RBC (Bld) [#/Vol] 3.48 10*6/uL Low 3.90-5.20 [facility] Comment on above: Order Comment: Speci men Type: BLOOD SPECIMEN Ordering Facility: [facility] Address: [address] [place] [address] Performed By: #### 2 4323-8, 3040-3, 50037-5, 2777-1, 2571-8 #### [facility] CLIA [id number] [address] [place], [place] [address] [facility] WBC (Bld) [#/Vol] 16.85 10*3/uL High 3.70-11.00 [facility] Comment on above: Order Comment: Speci men Type: BLOOD SPECIMEN Ordering Facility: [facility] Address: [address] [place] [address] Performed By: #### 2 4323-8, 3040-3, 04194-5, 2777-1, 2571-8 #### [facility] CLIA [id number] [address] [id number] [facility] CNDSon 03-23-2025 CNDS HNO ID: [id number] Author: GURJIT RAYO MD Service: Hospital Medicine [...] stent placement 03/10. Patient was transferred from [facility]. There she was found to have acute pancreatitis. She had a stent placed in the body of the pancreas however on CT scan at the other hospital she had new peripancreatic inflammation. She was alsoexperiencing acute hypoxic respiratory failure and was emergently intubated and transferred to [facility] ICU. 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 Transitions of Care Critical Issues: N/a LABS [...] TO PATIENT: Please (more content not included)... [facility] CONSULT PROGon 03-23-2025 CONSULT PROG HNO ID: [id number] Author: ESME HA APRN.CNP Service: Pulmonary Disease [...] Stage 3 severe COPD by GOLD classification ([facility]) 2018 Tobacco use greater than [...] tab(s) (ZOF (more content not included)... Normal [facility] Magnesium SerPl-ncon 03-23 Magnesium [Mass/Vol] 1.8 mg/dL Normal 1.6-2.6 [facility] Comment on above: Order Comment: Speci men Type: BLOOD SPECIMEN Ordering Facility: [facility] Address: [address] [place] [address] [place] [address] Performed By: #### 2 8608-8, 5749-3, 35215-9, 2777-1, 2571-8 #### [facility] CLIA [id number] [address] [place], [place] [address] [facility] Natriuretic peptide.B prohormone N-Terminal [Mass/Vol] 1171 pg/mL High <125 [facility] Comment on above: Order Comment: Speci men Type: BLOOD SPECIMEN Ordering Facility: [facility] Address: [address] [place] [address] Result Comment: NT-p roBNP results of less than 300 pg/mL likely rules out acute congestive heart failure with 99% predictive value. NOTE: These cutoff points are suggested for ACUTE CHF DIAGNOSIS only Less than 50 years\X09\ Greater than 450 pg/mL 50 - 75 years\X09\\X09\ Greater than 900 pg/mL Greater than 75 years\X09\ Greater than 1800 pg/mL Performed By: #### 2 4323-8, 3040-3, 54265-3, 2777-1, 2571-8 #### [facility] CLIA [id number] [address] [place], [place] [address] [facility] NUTRITIONon 03-23-2025 NUTRITION HNO ID: [id number] Author: KIRSTEN GARCIA RD Service: ? Author [...] Orders written and provider collaborated with: Dr Qubti- discussed reviewing meds/ diarrhea Monitor and Evaluation: [...] resp failure 2/2 bilat pna, on 6L [place]. Pulmonology following. +Norovirus. Pt initially admitted to ICU w [facility], extubated 03/17. +CIWA. PMH: HTN, HLD, EtOH [...] Weight Type: Current weight Estimated kilocalorie needs: 3271-0225 Calorie Calculation Method: Ringgold-St. Jeor (with activity factor) Estimated protein needs [...] March 23, 2025 TIME: 9:31 AM Normal [facility] Basic metabolic 2000 panelon 03-22-2025 Anion gap [Moles/Vol] 9 mmol/L Normal 5-16 [facility] Comment on above: Order Comment: Reggie fajardo Type: BLOOD SPECIMEN Ordering Facility: [facility] Address: [address] [place], [place] [address] Performed By: #### 2 4323-8, 3040-3, 48037-4, 2777-1, 2571-8 #### [facility] CLIA [id number] [address] [place] [address] [place] Calcium [Mass/Vol] 9.6 mg/dL Normal 8.5-10.5 [facility] Comment on above: Order Comment: Reggie fajardo Type: BLOOD SPECIMEN Ordering Facility: [facility] Address: [address] [place] [address] Performed By: #### 2 4323-8, 3040-3, 35352-0, 2777-1, 2571-8 #### [facility] CLIA [id number] [address] [place] [address] [place] Chloride [Moles/Vol] 99 mmol/L Normal 98-107 [facility] Comment on above: Order Comment: Speci men Type: BLOOD SPECIMEN Ordering Facility: [facility] Address: [address] [place] [address] Performed By: #### 2 4323-8, 3040-3, 79790-8, 7-1, 257-8 #### [facility] CLIA [id number] [address] [place] [address] [place] CO2 [Moles/Vol] 29 mmol/L Normal 21-32 [facility] Comment on above: Order Comment: Speci men Type: BLOOD SPECIMEN Ordering Facility: [facility] Address: [address] [place] [address] Performed By: #### 2 4323-8, 3040-3, 76966-3, 2776-1, 257-8 #### [facility] CLIA [id number] [address] [place] [address] [place] Creatinine [Mass/Vol] 0.77 mg/dL Normal 0.51-0.95 [facility] Comment on above: Order Comment: Speci men Type: BLOOD SPECIMEN Ordering Facility: [facility] Address: [address] [place] [address] Result Comment: Gretta ents receiving either N-Acetylcysteine (NAC) or Metamizole prior to venipuncture, may have falsely depressed results. Performed By: #### 2 4323-8, 3040-3, 56128-9, 277-1, 257-8 #### [facility] CLIA [id number] [address] [place], [place] [address] [place] Creatinine and Glomerular filtration rate.predicted panel (S/P/Bld) 88 mL/min/1.73m??? Normal >=60 [facility] Comment on above: Order Comment: Speci men Type: BLOOD SPECIMEN Ordering Facility: [facility] Address: [address] [place] [address] Result Comment: Pavan mated Glomerular Filtration Rate [...] GFR. Performed By: #### 2 4323-8, 3040-3, 76059-1, 2777-1, 2570-8 #### [facility] CLIA [id number] [address] [place] [address] [place] Glucose [Mass/Vol] 102 mg/dL High 70-100 [facility] Comment on above: Order Comment: Reggie fajardo Type: BLOOD SPECIMEN Ordering Facility: [facility] Address: [address] [place] [address] Result Comment: The [place] Diabetes [employer] (ADA) provides guidance for cutoff [...] Standards of Medical Care in Diabetes 2016, [place] [employer]. Diabetes Care. 2016.39(Suppl 1). Results may be falsely elevated after the administration of Sulfapyridine. Results may be falsely depressed after the administration of Sulfasalazine. Performed By: #### 2 4323-8, 3040-3, 72597-6, 277-1, 2570-8 #### [facility] CLIA [id number] [address] [place], [place] [address] [place] Potassium [Moles/Vol] 4.9 mmol/L Normal 3.5-5.1 [facility] Comment on above: Order Comment: Reggie fajardo Type: BLOOD SPECIMEN Ordering Facility: [facility] Address: [address] [address] Performed By: #### 2 4323-8, 3040-3, 96737-4, 2777-1, 257-8 #### [facility] CLIA [id number] [address] [place] [address] [place] Sodium [Moles/Vol] 137 mmol/L Normal 136-145 [facility] Comment on above: Order Comment: Speci men Type: BLOOD SPECIMEN Ordering Facility: [facility] Address: [address] [place], [place] [address] Performed By: #### 2 4323-8, 3040-3, 65169-1, 2777-1, 257-8 #### [facility] CLIA [id number] [address] [place], [place] [address] [place] Urea nitrogen [Mass/Vol] 12 mg/dL Normal 7-26 [facility] Comment on above: Order Comment: Speci men Type: BLOOD SPECIMEN Ordering Facility: [facility] Address: [address] [place], [place] [address] Performed By: #### 2 4323-8, 3040-3, 35577-9, 2777-1, 257-8 #### [facility] CLIA [id number] [address] [place], [place] [address] [place] CBC panel Auto (Bld)on 03-22 Erythrocyte distribution width (RBC) [Ratio] 15.4 % High 11.5-15.0 [facility] Comment on above: Order Comment: Speci men Type: BLOOD SPECIMEN Ordering Facility: [facility] Address: [address] [place], [place] [address] Performed By: #### 2 4323-8, 3040-3, 84942-3, 2777-1, 257-8 #### [facility] CLIA [id number] [address] [place], [place] [address] [place] Hematocrit (Bld) [Volume fraction] 33.7 % Low 36.0-46.0 [facility] Comment on above: Order Comment: Speci men Type: BLOOD SPECIMEN Ordering Facility: [facility] Address: [address] [place], [place] [address] Performed By: #### 2 4323-8, 3040-3, 09562-5, 1, 8 #### [facility] CLIA [id number] [address] [place], [place] [address] [place] Hemoglobin (Bld) [Mass/Vol] 10.2 g/dL Low 11.5-15.5 [facility] Comment on above: Order Comment: Speci men Type: BLOOD SPECIMEN Ordering Facility: [facility] Address: [address] [place], [place] [address] Performed By: #### 2 4323-8, 304-3, 68814-6, 2776-09, 2571-04 #### [facility] CLIA [id number] [address] [place] [address] [place] MCH (RBC) [Entitic mass] 26.4 pg Normal 26.0-34.0 [facility] Comment on above: Order Comment: Speci men Type: BLOOD SPECIMEN Ordering Facility: [facility] Address: [address] [place], [place] [address] Performed By: #### 2 4323-8, 304-3, 74303-4, 2776-09, 2571-04 #### [facility] CLIA [id number] [address] [place], [place] [address] [place] MCHC (RBC) [Mass/Vol] 30.3 g/dL Low 30.5-36.0 [facility] Comment on above: Order Comment: Speci men Type: BLOOD SPECIMEN Ordering Facility: [facility] Address: [address] [place], [place] [address] Performed By: #### 2 4323-8, 304-3, 35981-3, 2776-09, 2571-04 #### [facility] CLIA [id number] [address] [place], [place] [address] [facility] MCV (RBC) [Entitic vol] 87.3 fL Normal 80.0-100.0 [facility] Comment on above: Order Comment: Speci men Type: BLOOD SPECIMEN Ordering Facility: [facility] Address: [address] [place] [address] Performed By: #### 2 4323-8, 3040-3, 74304-9, 2776-1, 8 #### [facility] CLIA [id number] [address] [place] [address] [place] Nucleated RBC (Bld) [#/Vol] 10*3/uL Normal <0.01 [facility] Comment on above: Order Comment: Speci men Type: BLOOD SPECIMEN Ordering Facility: [facility] Address: [address] [place] [address] Performed By: #### 2 4323-8, 0-3, 55028-4, 2776-, 8 #### [facility] CLIA [id number] [address] [place], [place] [address] [place] Platelet mean volume (Bld) [Entitic vol] 10.2 fL Normal 9.0-12.7 [facility] Comment on above: Order Comment: Speci men Type: BLOOD SPECIMEN Ordering Facility: [facility] Address: [address] [place] [address] Performed By: #### 2 4323-8, 0-3, 31163-9, 2776-09, 8 #### [facility] CLIA [id number] [address] [place], [place] [address] [place] Platelets (Bld) [#/Vol] 411 10*3/uL High 150-400 [facility] Comment on above: Order Comment: Speci men Type: BLOOD SPECIMEN Ordering Facility: [facility] Address: [address] [place] [address] Performed By: #### 2 4323-8, 0-3, 32594-4, 2776-, 8 #### [facility] CLIA [id number] [address] [place] [address] [place] RBC (Bld) [#/Vol] 3.86 10*6/uL Low 3.90-5.20 [facility] Comment on above: Order Comment: Speci men Type: BLOOD SPECIMEN Ordering Facility: [facility] Address: [address] [place] [address] [place] [id number] Performed By: #### 2 4323-8, 3040-3, 84169-8, 2777-1, 2571-8 #### [facility] CLIA [id number] [address] [place] [address] [facility] WBC (Bld) [#/Vol] 17.90 10*3/uL High 3.70-11.00 [facility] Comment on above: Order Comment: Speci men Type: BLOOD SPECIMEN Ordering Facility: [facility] Address: [address] [place] [address] Performed By: #### 2 4323-8, 3040-3, 10239-5, 2777-1, 2571-8 #### [facility] CLIA [id number] [address] [place], [place] [address] [facility] CONSULT PROGon 03-22-2025 CONSULT PROG HNO ID: [id number] Author: ESME HA APRN.LEGAL EXECUTIVE ASSISTANT Service: Pulmonary Disease Author Type: Nurse Practitioner [...] Stage 3 severe COPD by GOLD classification ([facility]) 2018 Tobacco use greater than [...] 4 mg (more content not included)... Normal [facility] Magnesium SerPl-mCncon 03-22 Magnesium [Mass/Vol] 1.9 mg/dL Normal 1.6-2.6 [facility] Comment on above: Order Comment: Speci men Type: BLOOD SPECIMEN Ordering Facility: [facility] Address: [facility] [place] [place] [address] Performed By: #### 2 4323-8, 3040-3, 99324-0, 2777-1, 2571-8 #### [facility] CLIA [id number] [address] THERAPY NTon 03-22-2025 THERAPY NT HNO ID: [id number] Author: KERMIT MAGALLON, PT Service: Physical Therapy Author Type: Physical Therapist Type: Therapy (PT/OT/Speech/Resp) Filed: 03/22/2025 10:55 Note Text: Physical Therapy Evaluation Summary SERVICE DATE: 03/22/2025 SERVICE TIME: 948 to 1016 ROOM: [place] [address] PT 6 Clicks Score: 22 DISCHARGE RECOMMENDATIONS [...] pancreatitis. (+) Norovirus. Extubated 03/17. Txfer to [facility] 03/18. Relevant Past Medical History: chronic pancreatitis, alcoholic hepatitis, chronic hypoxic respiratory failure (5L baseline) HOME LIVING Patient Lives With: Family, Other: See Comment Comments: Will be discharging to sister's home. Home environment provide is sister's home. Assistance Available: 24-Hour, Other: See Comment Comments: sister, bizfjxf-is-oky and cousin Entry To Home: Stairs, With [...] Weakness (generalized) TREATMENT INTERVENTIONS Evaluation, Therapeutic Activity (94152) Timed Code Treatment (minutes): 10 Skilled Treatment [...] SpO2 92% Gait Device: Wheeled Walker General Deviations/Observations: Christin decreased Gait Distance (feet): 60 Stairs [...] Training, Balance Training, Neuromuscular Re-education SIGNATURE: Kermit Magallon, PT PATIENT NAME: Gracie Banuelos DATE: March 22, 2025 TIME: 10:55 AM [facility] XR CHEST 1V FRONTALon 2024 XR CHEST [...] left pleural effusion and left lobar atelectasis. Charge Entry: BABATUNDE Transcribe Date/Time: Mar 23 2025 6:52A Dictated by : OZZY LATHAM MD This examination was interpreted and the report reviewed and electronically signed by: OZZY LATHAM MD on Mar 23 2025 6:55AM EST [id number] Normal [facility] Basic metabolic 2000 panelon 03-21-2025 Anion gap [Moles/Vol] 8 mmol/L Normal 5-16 [facility] Comment on above: Order Comment: Reggie fajardo Type: BLOOD SPECIMEN Ordering Facility: [facility] Address: [address] [place] [address] Performed By: #### 2 4323-8, 3040-3, 66223-5, 2777-1, 257-8 #### [facility] CLIA [id number] [address] [place] [address] [place] Calcium [Mass/Vol] 9.5 mg/dL Normal 8.5-10.5 [facility] Comment on above: Order Comment: Reggie fajardo Type: BLOOD SPECIMEN Ordering Facility: [facility] Address: [address] [place] [address] Performed By: #### 2 4323-8, 3040-3, 55926-2, 2777-1, 2571-8 #### [facility] CLIA [id number] [address] [place], [place] [address] [place] Chloride [Moles/Vol] 98 mmol/L Normal 98-107 [facility] Comment on above: Order Comment: Speci men Type: BLOOD SPECIMEN Ordering Facility: [facility] Address: [address] [place] [address] Performed By: #### 2 4323-8, 3040-3, 89235-7, 7-1, 257-8 #### [facility] CLIA [id number] [address] [place] [address] [place] CO2 [Moles/Vol] 31 mmol/L Normal 21-32 [facility] Comment on above: Order Comment: Speci men Type: BLOOD SPECIMEN Ordering Facility: [facility] Address: [address] [place] [address] Performed By: #### 2 4323-8, 3040-3, 39973-6, 2776-1, 257-8 #### [facility] CLIA [id number] [address] [place] [address] [place] Creatinine [Mass/Vol] 1.03 mg/dL High 0.51-0.95 [facility] Comment on above: Order Comment: Speci men Type: BLOOD SPECIMEN Ordering Facility: [facility] Address: [address] [place] [address] Result Comment: Gretta ents receiving either N-Acetylcysteine (NAC) or Metamizole prior to venipuncture, may have falsely depressed results. Performed By: #### 2 4323-8, 3040-3, 83426-1, 2776-1, 257-8 #### [facility] CLIA [id number] [address] [place], [place] [address] [place] Creatinine and Glomerular filtration rate.predicted panel (S/P/Bld) 62 mL/min/1.73m??? Normal >=60 [facility] Comment on above: Order Comment: Speci men Type: BLOOD SPECIMEN Ordering Facility: [facility] Address: [address] [place] [address] Result Comment: Pavan mated Glomerular Filtration Rate [...] GFR. Performed By: #### 2 4323-8, 3040-3, 04788-5, 2777-1, 2570-8 #### [facility] CLIA [id number] [address] [place], [place] [address] [place] Glucose [Mass/Vol] 105 mg/dL High 70-100 [facility] Comment on above: Order Comment: Reggie fajardo Type: BLOOD SPECIMEN Ordering Facility: [facility] Address: [address] [place] [address] Result Comment: The [place] Diabetes [employer] (ADA) provides guidance for cutoff [...] Standards of Medical Care in Diabetes 2016, [place] [employer]. Diabetes Care. 2016.39(Suppl 1). Results may be falsely elevated after the administration of Sulfapyridine. Results may be falsely depressed after the administration of Sulfasalazine. Performed By: #### 2 4323-8, 3040-3, 02358-8, 2777-1, 2570-8 #### [facility] CLIA [id number] [address] [place], [place] [address] [place] Potassium [Moles/Vol] 4.4 mmol/L Normal 3.5-5.1 [facility] Comment on above: Order Comment: Reggie fajardo Type: BLOOD SPECIMEN Ordering Facility: [facility] Address: [address] [place] [address] Performed By: #### 2 4323-8, 3040-3, 10537-9, 2777-1, 2571-8 #### [facility] CLIA [id number] [address] [place], [place] [address] [place] Sodium [Moles/Vol] 137 mmol/L Normal 136-145 [facility] Comment on above: Order Comment: Speci men Type: BLOOD SPECIMEN Ordering Facility: [facility] Address: [address] [place], [place] [address] Performed By: #### 2 4323-8, 3040-3, 53017-5, 2777-1, 2571-8 #### [facility] CLIA [id number] [address] [place], [place] [address] [place] Urea nitrogen [Mass/Vol] 17 mg/dL Normal 7-26 [facility] Comment on above: Order Comment: Speci men Type: BLOOD SPECIMEN Ordering Facility: [facility] Address: [address] [place] [address] Performed By: #### 2 4323-8, 3040-3, 72915-3, 2777-1, 2571-8 #### [facility] CLIA [id number] [address] [place], [place] [address] [place] CBC panel Auto (Bld)on 03-21 Erythrocyte distribution width (RBC) [Ratio] 15.3 % High 11.5-15.0 [facility] Comment on above: Order Comment: Speci men Type: BLOOD SPECIMEN Ordering Facility: [facility] Address: [address] [place], [place] [address] Performed By: #### 2 4323-8, 3040-3, 33284-3, 2777-1, 2571-8 #### [facility] CLIA [id number] [address] [place], [place] [address] [place] Hematocrit (Bld) [Volume fraction] 33.7 % Low 36.0-46.0 [facility] Comment on above: Order Comment: Speci men Type: BLOOD SPECIMEN Ordering Facility: [facility] Address: [address] [place] [address] Performed By: #### 2 4323-8, 3040-3, 91761-5, 1, 8 #### [facility] CLIA [id number] [address] [place], [place] [address] [place] Hemoglobin (Bld) [Mass/Vol] 10.0 g/dL Low 11.5-15.5 [facility] Comment on above: Order Comment: Speci men Type: BLOOD SPECIMEN Ordering Facility: [facility] Address: [address] [place], [place] [address] Performed By: #### 2 4323-8, 3040-3, 27505-0, 2776-09, 8 #### [facility] CLIA [id number] [address] [place], [place] [address] [place] MCH (RBC) [Entitic mass] 26.0 pg Normal 26.0-34.0 [facility] Comment on above: Order Comment: Speci men Type: BLOOD SPECIMEN Ordering Facility: [facility] Address: [address] [place], [place] [address] Performed By: #### 2 4323-8, 3040-3, 39545-6, 2776-09, 2571-04 #### [facility] CLIA [id number] [address] [place] [address] [place] MCHC (RBC) [Mass/Vol] 29.7 g/dL Low 30.5-36.0 [facility] Comment on above: Order Comment: Speci men Type: BLOOD SPECIMEN Ordering Facility: [facility] Address: [address] [place], [place] [address] Performed By: #### 2 4323-8, 3040-3, 81575-5, 2776-09, 8 #### [facility] CLIA [id number] [address] [place], [place] [address] [place] MCV (RBC) [Entitic vol] 87.8 fL Normal 80.0-100.0 [facility] Comment on above: Order Comment: Speci men Type: BLOOD SPECIMEN Ordering Facility: [facility] Address: [address] [place], [place] [address] Performed By: #### 2 4323-8, 3040-3, 41629-4, 2776-1, 8 #### [facility] CLIA [id number] [address] [place] [address] [place] Nucleated RBC (Bld) [#/Vol] 10*3/uL Normal <0.01 [facility] Comment on above: Order Comment: Speci men Type: BLOOD SPECIMEN Ordering Facility: [facility] Address: [address] [place], [place] [address] Performed By: #### 2 4323-8, 3040-3, 50965-8, 2776-, 8 #### [facility] CLIA [id number] [address] [place], [place] [address] [place] Platelet mean volume (Bld) [Entitic vol] 9.7 fL Normal 9.0-12.7 [facility] Comment on above: Order Comment: Speci men Type: BLOOD SPECIMEN Ordering Facility: [facility] Address: [address] [place], [place] [address] Performed By: #### 2 4323-8, 304-3, 39804-1, 2776-09, 8 #### [facility] CLIA [id number] [address] [place] [address] [place] Platelets (Bld) [#/Vol] 380 10*3/uL Normal 150-400 [facility] Comment on above: Order Comment: Speci men Type: BLOOD SPECIMEN Ordering Facility: [facility] Address: [address] [place] [address] Performed By: #### 2 4323-8, 0-3, 83215-7, 2776-1, 8 #### [facility] CLIA [id number] [address] [place] [address] [place] RBC (Bld) [#/Vol] 3.84 10*6/uL Low 3.90-5.20 [facility] Comment on above: Order Comment: Speci tana Type: BLOOD SPECIMEN Ordering Facility: [facility] Address: [address] [place], [place] [address] Performed By: #### 2 4323-8, 3040-3, 41324-1, 2777-1, 2571-8 #### [facility] CLIA [id number] [address] [place] [address] WBC (Bld) [#/Vol] 16.40 10*3/uL High 3.70-11.00 [facility] Comment on above: Order Comment: Specmiya fajardo Type: BLOOD SPECIMEN Ordering Facility: [facility] Address: [address] [place] [address] Performed By: #### 2 4323-8, 3040-3, 47464-3, 2777-1, 2571-8 #### [facility] CLIA [id number] [address] [place], [place] [address] [facility] CONSULT PROGon 03-21-2025 CONSULT PROG HNO ID: [id number] Author: EUGENE VIRAMONTES APRN.LEGAL EXECUTIVE ASSISTANT Service: Pulmonary Disease Author Type: Nurse Practitioner Type: Consult Progress Note Filed: 03/21/2025 14:20 Note Text: [facility] PULMONARY PROGRESS NOTE SERVICE DATE: 03/21/2025 SERVICE [...] Stage 3 severe COPD by GOLD classification ([facility]) 2018 Tobacco use greater than [...] Units injection 5,0 (more content not included)... [facility] Magnesium [facility] 03-21 Magnesium [Mass/Vol] 2.3 mg/dL Normal 1.6-2.6 [facility] Comment on above: Order Comment: Reggie fajardo Type: BLOOD SPECIMEN Ordering Facility: [facility] Address: [address] [place] [address] Performed By: #### 2 4323-8, 3040-3, 91572-0, 2777-1, 2571-8 #### [facility] CLIA [id number] [address] [place] [address] NT-proBNP [facility] 03-21 Natriuretic peptide.B prohormone N-Terminal [Mass/Vol] 1416 pg/mL High <125 [facility] Comment on above: Order Comment: Reggie fajardo Type: BLOOD SPECIMEN Ordering Facility: [facility] Address: [address] [place] [address] Result Comment: NT-p roBNP results of less than 300 pg/mL likely rules out acute congestive heart failure with 99% predictive value. NOTE: These cutoff points are suggested for ACUTE CHF DIAGNOSIS only Less than 50 years\X09\ Greater than 450 pg/mL 50 - 75 years\X09\\X09\ Greater than 900 pg/mL Greater than 75 years\X09\ Greater than 1800 pg/mL Performed By: #### 2 4323-8, 3040-3, 76137-2, 2777-1, 2571-8 #### [facility] CLIA [id number] [address] [place], [place] [address] [facility] ALLIED HEALTHon 03-20-2025 ALLIED HEALTH HNO ID: [id number] Author: ?, ?, ? Service: Infection Prevention Author Type: ? Type: Allied Health Filed: 03/20/2025 14:07 Note Text: -------- Summary: isolation precautions -------- ISOLATION NOTE Admission Date: 03/15/2025 Type of Isolation Recommended: Contact Precautions - Soap and Water (Brown Isolation Sign) Indication: Norovirus Date Isolation Initiated: 03/18/25 Anticipated Duration of Isolation: In consultation with Infection Prevention Type and Date of Positive Test(s): 03/18/25 SIGNATURE: Susan Helm PATIENT NAME: Gracie Banuelos DATE: March 20, 2025 TIME: 2:06 PM PAGER/CONTACT #: [phone] Infection Prevention after hours/weekend pager: [phone] Normal [facility] Basic metabolic 2000 panelon 03-20-2025 Anion gap [Moles/Vol] 11 mmol/L Normal 5-16 [facility] Comment on above: Order Comment: Specmiya fajardo Type: BLOOD SPECIMEN Ordering Facility: [facility] Address: [address] [place] [address] Performed By: #### S LACTR #### [facility] CLIA [id number] [address] [place] [address] [place] Calcium [Mass/Vol] 9.9 mg/dL Normal 8.5-10.5 [facility] Comment on above: Order Comment: Speci men Type: BLOOD SPECIMEN Ordering Facility: [facility] Address: [address] [place] [address] Performed By: #### S LACTR #### [facility] CLIA [id number] [address] [place] [address] [place] Chloride [Moles/Vol] 95 mmol/L Low 98-107 [facility] Comment on above: Order Comment: Kettyi men Type: BLOOD SPECIMEN Ordering Facility: [facility] Address: [address] [place] [address] Performed By: #### S LACTR #### [facility] CLIA [id number] [address] [place] [address] [place] CO2 [Moles/Vol] 29 mmol/L Normal 21-32 [facility] Comment on above: Order Comment: Speci men Type: BLOOD SPECIMEN Ordering Facility: [facility] Address: [address] [place] [address] Performed By: #### S LACTR #### [facility] CLIA [id number] [address] [place] [address] [place] Creatinine [Mass/Vol] 0.83 mg/dL Normal 0.51-0.95 [facility] Comment on above: Order Comment: Speci men Type: BLOOD SPECIMEN Ordering Facility: [facility] Address: [address] [place] [address] Result Comment: Gretta ents receiving either N-Acetylcysteine (NAC) or Metamizole prior to venipuncture, may have falsely depressed results. Performed By: #### S LACTR #### [facility] CLIA [id number] [address] [place] [address] OF [facility] Creatinine and Glomerular filtration rate.predicted panel (S/P/Bld) 80 mL/min/1.73m??? Normal >=60 [facility] Comment on above: Order Comment: Speci men Type: BLOOD SPECIMEN Ordering Facility: [facility] Address: [address] [place] [address] Result Comment: Pavan mated Glomerular Filtration Rate [...] GFR. Performed By: #### S LACTR #### [facility] CLIA [id number] [address] [place] [address] [place] Glucose [Mass/Vol] 135 mg/dL High 70-100 [facility] Comment on above: Order Comment: Speci men Type: BLOOD SPECIMEN Ordering Facility: [facility] Address: [address] [place] [address] Result Comment: The [place] [employer] (ADA) provides guidance for cutoff [...] Standards of Medical Care in Diabetes 2016, [place] [employer]. Diabetes Care. 2016.39(Suppl 1). Results may be falsely elevated after the administration of Sulfapyridine. Results may be falsely depressed after the administration of Sulfasalazine. Performed By: #### S LACTR #### [facility] CLIA [id number] [address] [place] [address] [place] Potassium [Moles/Vol] 4.2 mmol/L Normal 3.5-5.1 [facility] Comment on above: Order Comment: Reggie fajardo Type: BLOOD SPECIMEN Ordering Facility: [facility] Address: [address] [place] [address] Performed By: #### S LACTR #### [facility] CLIA [id number] [address] [place] [address] [place] Sodium [Moles/Vol] 135 mmol/L Low 136-145 [facility] Comment on above: Order Comment: Reggie fajardo Type: BLOOD SPECIMEN Ordering Facility: [facility] Address: [address] [place] [address] Performed By: #### S LACTR #### [facility] CLIA [id number] [address] [place] [address] [place] Urea nitrogen [Mass/Vol] 15 mg/dL Normal 7-26 [facility] Comment on above: Order Comment: Reggie fajardo Type: BLOOD SPECIMEN Ordering Facility: [facility] Address: [address] [place] [address] Performed By: #### S LACTR #### [facility] CLIA [id number] [address] [place] [address] [place] CBC panel Auto (Bld)on 03-20 Erythrocyte distribution width (RBC) [Ratio] 15.4 % High 11.5-15.0 [facility] Comment on above: Order Comment: Speci men Type: BLOOD SPECIMEN Ordering Facility: [facility] Address: [address] [place] [address] Performed By: #### S LACTR #### [facility] CLIA [id number] [address] [place] [address] [place] Hematocrit (Bld) [Volume fraction] 37.7 % Normal 36.0-46.0 [facility] Comment on above: Order Comment: Speci men Type: BLOOD SPECIMEN Ordering Facility: [facility] Address: [address] [place] [address] Performed By: #### S LACTR #### [facility] CLIA [id number] [address] [place] [address] [place] Hemoglobin (Bld) [Mass/Vol] 11.7 g/dL Normal 11.5-15.5 [facility] Comment on above: Order Comment: Speci men Type: BLOOD SPECIMEN Ordering Facility: [facility] Address: [address] [place] [address] Performed By: #### S LACTR #### [facility] CLIA [id number] [address] [place] [address] [place] MCH (RBC) [Entitic mass] 26.7 pg Normal 26.0-34.0 [facility] Comment on above: Order Comment: Speci men Type: BLOOD SPECIMEN Ordering Facility: [facility] Address: [address] [place] [address] Performed By: #### S LACTR #### [facility] CLIA [id number] [address] [place] [address] [place] MCHC (RBC) [Mass/Vol] 31.0 g/dL Normal 30.5-36.0 [facility] Comment on above: Order Comment: Speci men Type: BLOOD SPECIMEN Ordering Facility: [facility] Address: [facility] [place] [address] Performed By: #### S LACTR #### [facility] CLIA [id number] [address] [place] [address] [place] MCV (RBC) [Entitic vol] 86.1 fL Normal 80.0-100.0 [facility] Comment on above: Order Comment: Speci men Type: BLOOD SPECIMEN Ordering Facility: [facility] Address: [address] [place] [address] Performed By: #### S LACTR #### [facility] CLIA [id number] [address] [place] [address] [place] Nucleated RBC (Bld) [#/Vol] 10*3/uL Normal <0.01 [facility] Comment on above: Order Comment: Speci men Type: BLOOD SPECIMEN Ordering Facility: [facility] Address: [address] [place] [address] Performed By: #### S LACTR #### [facility] CLIA [id number] [address] [place] [address] [place] Platelet mean volume (Bld) [Entitic vol] 10.0 fL Normal 9.0-12.7 [facility] Comment on above: Order Comment: Speci men Type: BLOOD SPECIMEN Ordering Facility: [facility] Address: [address] [place] [address] Performed By: #### S LACTR #### [facility] CLIA [id number] [address] [place] [address] [place] Platelets (Bld) [#/Vol] 447 10*3/uL High 150-400 [facility] Comment on above: Order Comment: Speci men Type: BLOOD SPECIMEN Ordering Facility: [facility] Address: [address] [place] [address] Performed By: #### S LACTR #### [facility] CLIA [id number] [address] [place], [place] [address] [facility] OF [place] RBC (Bld) [#/Vol] 4.38 10*6/uL Normal 3.90-5.20 [facility] Comment on above: Order Comment: Speci men Type: BLOOD SPECIMEN Ordering Facility: [facility] Address: [address] [place] [address] Performed By: #### S LACTR #### [facility] CLIA [id number] [address] [place], [place] [address] [facility] WBC (Bld) [#/Vol] 18.58 10*3/uL High 3.70-11.00 [facility] Comment on above: Order Comment: Speci men Type: BLOOD SPECIMEN Ordering Facility: [facility] Address: [address] [place] [address] Performed By: #### S LACTR #### [facility] CLIA [id number] [address] [place], [place] [address] [facility] CONSULT PROGon 03-20-2025 CONSULT PROG HNO ID: [id number] Author: ISIS BE RPh Service: Pharmacy Author [...] there are questions. Isis Be RPh Normal [facility] CONSULT PROG HNO ID: [id number] Author: EUGENE VIRAMONTES APRN.CNP Service: Pulmonary Disease Author Type: Nurse Practitioner Type: Consult Progress Note Filed: 03/20/2025 11:28 Note Text: [facility] PULMONARY PROGRESS NOTE SERVICE DATE: 03/20/2025 SERVICE [...] Stage 3 severe COPD by GOLD classification ([facility]) 2018 Tobacco use greater than [...] iv con (more content not included)... Normal [facility] ECHOon 03-20-2025 Echocardiography Echocardiography Rep ort: Transthoracic Echo [facility] Date of service: 03/20/2025 9:25:59 AM [...] * * Final * * * CC [employer] [facility] : [id number] Normal [facility] Magnesium SerPl-ncon 03-20 Magnesium [Mass/Vol] 2.1 mg/dL Normal 1.6-2.6 [facility] Comment on above: Order Comment: Speci men Type: BLOOD SPECIMEN Ordering Facility: [facility] Address: [address] [place] [address] Performed By: #### S LACTR #### [facility] CLIA [id number] [address] [place] [address] STATES OF [facility] ALLIED HEALTHon 03-19-2025 ALLIED HEALTH HNO ID: [id number] Author: AMY FUENTES RT(Heath) Service: Radiology Author Type: Technologist Type: Allied Health Filed: 03/19/2025 22:32 Note Text: -------- Summary: ct -------- Radiology Service Progress Note DATE OF SERVICE: [...] PATIENT PRESENTS WITH AN IMPLANTABLE OR ATTACHED HORTICULTURAL MANAGER: No ALLERGIES: Reviewed and unchanged CONTRAST [...] PERIPHERAL IV DATA: Inpatient - refer to [facility] documentation RADIOLOGY DEPARTMENT: CT; Exam(s) Completed: CTA Chest SIGNATURE: Amy Fuentes, RT(R) PATIENT NAME: Gracie Banuelos DATE: March 19, 2025 TIME: 10:13 PM Normal [facility] ARTERIAL BLOOD GASESon 03-19 Base excess Calc (Bld) [Moles/Vol] 3 mmol/L High 0-2 [facility] Comment on above: Order Comment: Reggie fajardo Type: BLOOD SPECIMEN Ordering Facility: [facility] Address: [address] [place] [address] Performed By: #### S LACTR #### [facility] CLIA [id number] [address] [place] [address] [place] Body temperature 98.6 [degF] Normal [facility] Comment on above: Order Comment: Reggie fajardo Type: BLOOD SPECIMEN Ordering Facility: [facility] Address: [address] [place] [address] Performed By: #### S LACTR #### [facility] CLIA [id number] [address] [place] [address] [place] Calcium.ionized (Bld) [Mass/Vol] 1.25 mmol/L Normal 1.08-1.30 [facility] Comment on above: Order Comment: Reggie fajardo Type: BLOOD SPECIMEN Ordering Facility: [facility] Address: [address] [place] [address] Performed By: #### S LACTR #### [facility] CLIA [id number] [address] [place] [address] [place] Carboxyhemoglobin (BldA) [Mass fraction] 0.0 % Normal 0.0-2.0 [facility] Comment on above: Order Comment: Speci men Type: BLOOD SPECIMEN Ordering Facility: [facility] Address: [address] [place] [address] Result Comment: Carb oxyhemoglobin Reference Range for Smokers: 2.0-8.0% Performed By: #### S LACTR #### [facility] CLIA [id number] [address] [place] [address] [place] CO2 (Bld) [Partial pressure] 38 mm Hg Normal 36-46 [facility] Comment on above: Order Comment: Speci men Type: BLOOD SPECIMEN Ordering Facility: [facility] Address: [address] [place] [address] Performed By: #### S LACTR #### [facility] CLIA [id number] [address] [place] [address] [place] Glucose [Mass/Vol] 155 mg/dL High 60-105 [facility] Comment on above: Order Comment: Speci men Type: BLOOD SPECIMEN Ordering Facility: [facility] Address: [address] [place] [address] Performed By: #### S LACTR #### [facility] CLIA [id number] [address] [place] [address] [place] HCO3 (Bld) [Moles/Vol] 27 mmol/L High 22-26 [facility] Comment on above: Order Comment: Speci men Type: BLOOD SPECIMEN Ordering Facility: [facility] Address: [address] [place] [address] Performed By: #### S LACTR #### [facility] CLIA [id number] [address] [place] [address] [place] Hemoglobin (Bld) [Mass/Vol] 12.5 g/dL Normal 11.5-15.5 [facility] Comment on above: Order Comment: Speci men Type: BLOOD SPECIMEN Ordering Facility: [facility] Address: [address] [place] [address] Performed By: #### S LACTR #### [facility] CLIA [id number] [address] [place] [address] [place] Lactate [Moles/Vol] 0.8 mmol/L Normal 0.5-2.2 [facility] Comment on above: Order Comment: Speci men Type: BLOOD SPECIMEN Ordering Facility: [facility] Address: [address] [place] [address] Performed By: #### S LACTR #### [facility] IA [id number] [address] [place] [address] [place] LITERS 12 Liters/min [facility] Comment on above: Order Comment: Speci men Type: BLOOD SPECIMEN Ordering Facility: [facility] Address: [address] [place] [address] Performed By: #### S LACTR #### [facility] IA [id number] [address] [place] [address] [place] Methemoglobin (Bld) [Mass fraction] 0.2 % Normal 0.0-1.5 [facility] Comment on above: Order Comment: Speci men Type: BLOOD SPECIMEN Ordering Facility: [facility] Address: [address] [place] [address] Performed By: #### S LACTR #### [facility] IA [id number] [address] [place] [address] [place] O2 THERAPY [place] Humid = Nasal Cannula-Humidified (7-15 LPM) [facility] Comment on above: Order Comment: Speci men Type: BLOOD SPECIMEN Ordering Facility: [facility] Address: [address] [place] [address] Performed By: #### S LACTR #### [facility] IA [id number] [address] [place] [address] [place] Oxygen (Bld) [Partial pressure] 68 mm Hg Low 85-95 [facility] Comment on above: Order Comment: Speci men Type: BLOOD SPECIMEN Ordering Facility: [facility] Address: [address] [place] [address] Performed By: #### S LACTR #### [facility] CLIA [id number] [address] [place] [address] [place] Oxyhemoglobin (BldA) [Mass fraction] 93 % Low 95-98 [facility] Comment on above: Order Comment: Speci men Type: BLOOD SPECIMEN Ordering Facility: [facility] Address: [address] [place] [address] Performed By: #### S LACTR #### [facility] CLIA [id number] [address] [place] [address] [place] pH (Bld) 7.47 [pH] High 7.35-7.45 [facility] Comment on above: Order Comment: Speci men Type: BLOOD SPECIMEN Ordering Facility: [facility] Address: [address] [place] [address] Performed By: #### S LACTR #### [facility] IA [id number] [address] [place] [address] [place] Potassium [Moles/Vol] 4.4 mmol/L Normal 2.5-6.0 [facility] Comment on above: Order Comment: Speci men Type: BLOOD SPECIMEN Ordering Facility: [facility] Address: [address] [place] [address] Performed By: #### S LACTR #### [facility] IA [id number] [address] [place] [address] [place] Sodium [Moles/Vol] 135 mmol/L Low 136-144 [facility] Comment on above: Order Comment: Speci men Type: BLOOD SPECIMEN Ordering Facility: [facility] Address: [address] [place] [address] Performed By: #### S LACTR #### [facility] IA [id number] [address] [place] [address] [place] Basic metabolic 2000 panelon 03-19-2025 Anion gap [Moles/Vol] 10 mmol/L Normal 5-16 [facility] Comment on above: Order Comment: Speci men Type: BLOOD SPECIMEN Ordering Facility: [facility] Address: [address] [place] [address] Performed By: #### 3 4528-0, 69240-1 #### [facility] CLIA [id number] [address] [place] [address] [place] Calcium [Mass/Vol] 9.4 mg/dL Normal 8.5-10.5 [facility] Comment on above: Order Comment: Speci men Type: BLOOD SPECIMEN Ordering Facility: [facility] Address: [address] [place] [address] Performed By: #### 3 4528-0, 07300-2 #### [facility] CLIA [id number] [address] [place] [address] [place] Chloride [Moles/Vol] 100 mmol/L Normal 98-107 [facility] Comment on above: Order Comment: Speci men Type: BLOOD SPECIMEN Ordering Facility: [facility] Address: [address] [place] [address] Performed By: #### 3 4528-0, 29774-1 #### [facility] CLIA [id number] [address] [place] [address] [place] CO2 [Moles/Vol] 28 mmol/L Normal 21-32 [facility] Comment on above: Order Comment: Speci men Type: BLOOD SPECIMEN Ordering Facility: [facility] Address: [address] [place] [address] Performed By: #### 3 4528-0, 57558-1 #### [facility] CLIA [id number] [address] [place] [address] [place] Creatinine [Mass/Vol] 0.57 mg/dL Normal 0.51-0.95 [facility] Comment on above: Order Comment: Speci men Type: BLOOD SPECIMEN Ordering Facility: [facility] Address: [address] [place] [address] Result Comment: Gretta ents receiving either N-Acetylcysteine (NAC) or Metamizole prior to venipuncture, may have falsely depressed results. Performed By: #### 3 4528-0, 55097-3 #### [facility] CLIA [id number] [address] [place] [address] [place] Creatinine and Glomerular filtration rate.predicted panel (S/P/Bld) 104 mL/min/1.73m??? Normal >=60 [facility] Comment on above: Order Comment: Reggie fajardo Type: BLOOD SPECIMEN Ordering Facility: [facility] Address: [address] [place] [address] Result Comment: Pavan mated Glomerular Filtration Rate [...] actual GFR. Performed By: #### 3 4528-0, 45001-9 #### [facility] CLIA [id number] [address] [place] [address] [place] Glucose [Mass/Vol] 102 mg/dL High 70-100 [facility] Comment on above: Order Comment: Reggie fajardo Type: BLOOD SPECIMEN Ordering Facility: [facility] Address: [address] [place] [address] Result Comment: The [place] Diabetes [employer] (ADA) provides guidance for cutoff [...] Standards of Medical Care in Diabetes 2016, [place] [employer]. Diabetes Care. 2016.39(Suppl 1). Results may be falsely elevated after the administration of Sulfapyridine. Results may be falsely depressed after the administration of Sulfasalazine. Performed By: #### 3 4528-0, 40305-7 #### [facility] CLIA [id number] [address] [place] [address] [place] Potassium [Moles/Vol] 4.4 mmol/L Normal 3.5-5.1 [facility] Comment on above: Order Comment: Speci men Type: BLOOD SPECIMEN Ordering Facility: [facility] Address: [address] [place] [address] Performed By: #### 3 4528-0, 21115-8 #### [facility] CLIA [id number] [address] [place] [address] [place] Sodium [Moles/Vol] 138 mmol/L Normal 136-145 [facility] Comment on above: Order Comment: Speci men Type: BLOOD SPECIMEN Ordering Facility: [facility] Address: [address] [place] [address] Performed By: #### 3 4528-0, 02799-4 #### [facility] CLIA [id number] [address] [place] [address] [place] Urea nitrogen [Mass/Vol] 10 mg/dL Normal 7-26 [facility] Comment on above: Order Comment: Speci men Type: BLOOD SPECIMEN Ordering Facility: [facility] Address: [address] [place] [address] Performed By: #### 3 4528-0, 45485-3 #### [facility] CLIA [id number] [address] [place] [address] [place] CBC panel Auto (Bld)on 03-19 Erythrocyte distribution width (RBC) [Ratio] 15.1 % High 11.5-15.0 [facility] Comment on above: Order Comment: Speci men Type: BLOOD SPECIMEN Ordering Facility: [facility] Address: [address] [place] [address] Performed By: #### 3 4528-0, 73650-1 #### [facility] CLIA [id number] [address] [place] [address] [place] Hematocrit (Bld) [Volume fraction] 33.0 % Low 36.0-46.0 [facility] Comment on above: Order Comment: Speci men Type: BLOOD SPECIMEN Ordering Facility: [facility] Address: [address] [place] [address] Performed By: #### 3 4528-0, 88206-1 #### [facility] CLIA [id number] [address] [place] [address] [place] Hemoglobin (Bld) [Mass/Vol] 10.1 g/dL Low 11.5-15.5 [facility] Comment on above: Order Comment: Speci men Type: BLOOD SPECIMEN Ordering Facility: [facility] Address: [address] [place] [address] Performed By: #### 3 4528-0, 22550-0 #### [facility] CLIA [id number] [address] [place] [address] [place] MCH (RBC) [Entitic mass] 26.5 pg Normal 26.0-34.0 [facility] Comment on above: Order Comment: Speci men Type: BLOOD SPECIMEN Ordering Facility: [facility] Address: [address] [place] [address] Performed By: #### 3 4528-0, 02365-7 #### [facility] CLIA [id number] [address] [place] [address] [place] MCHC (RBC) [Mass/Vol] 30.6 g/dL Normal 30.5-36.0 [facility] Comment on above: Order Comment: Speci men Type: BLOOD SPECIMEN Ordering Facility: [facility] Address: [address] [place] [address] Performed By: #### 3 4528-0, 85719-4 #### [facility] CLIA [id number] [address] [place] [address] [place] MCV (RBC) [Entitic vol] 86.6 fL Normal 80.0-100.0 [facility] Comment on above: Order Comment: Speci men Type: BLOOD SPECIMEN Ordering Facility: [facility] Address: [address] [place] [address] Performed By: #### 3 4528-0, 94513-1 #### [facility] CLIA [id number] [address] [place] [address] [place] Nucleated RBC (Bld) [#/Vol] 10*3/uL Normal <0.01 [facility] Comment on above: Order Comment: Speci men Type: BLOOD SPECIMEN Ordering Facility: [facility] Address: [address] [place] [address] Performed By: #### 3 4528-0, 78666-3 #### [facility] CLIA [id number] [address] [place] [address] [place] Platelet mean volume (Bld) [Entitic vol] 9.9 fL Normal 9.0-12.7 [facility] Comment on above: Order Comment: Speci men Type: BLOOD SPECIMEN Ordering Facility: [facility] Address: [address] [place] [address] Performed By: #### 3 4528-0, 70357-2 #### [facility] CLIA [id number] [address] [place] [address] [place] Platelets (Bld) [#/Vol] 397 10*3/uL Normal 150-400 [facility] Comment on above: Order Comment: Speci men Type: BLOOD SPECIMEN Ordering Facility: [facility] Address: [address] [place] [address] Performed By: #### 3 4528-0, 65500-6 #### [facility] CLIA [id number] [address] [place] [address] [place] RBC (Bld) [#/Vol] 3.81 10*6/uL Low 3.90-5.20 [facility] Comment on above: Order Comment: Speci men Type: BLOOD SPECIMEN Ordering Facility: [facility] Address: [address] [place] [address] Performed By: #### 3 4528-0, 63986-5 #### [facility] CLIA [id number] [address] [place] [address] [place] WBC (Bld) [#/Vol] 14.59 10*3/uL High 3.70-11.00 [facility] Comment on above: Order Comment: Speci men Type: BLOOD SPECIMEN Ordering Facility: [facility] Address: [address] [place] [address] Performed By: #### 3 4528-0, 93403-9 #### [facility] CLIA [id number] [address] [place] CONSULT PROGon 03-19-2025 CONSULT PROG HNO ID: [id number] Author: BEENA MORTON RPh Service: Pharmacy Author [...] No results found for: FELTON MORTON, PHARMACIST, [facility] CTA CHEST (NONGATED) W IVCON on 03-19-2025 CTA CHEST (NONGATED) W IVCON * * *Final Report* * * DATE OF EXAM: Mar 19 2025 10:16PM [facility] 0123 - CTA CHEST (NONGATED) W [...] previous exam. 4. Moderate to advanced emphysema. Charge Entry: BABATUNDE Transcribe Date/Time: Mar 19 2025 11:10P Dictated by : DEBORAH PARK MD This examination was interpreted and the report reviewed and electronically signed by: DEBORAH PARK MD on Mar 19 2025 11:29PM EST [id number] Normal [facility] ECG COMPLETEon 03-19-2025 ECG COMPLETE Ventricular Rate : 1 26 BPM Atrial Rate : 126 BPM P-R Interval : 174 ms QRS Duration : 78 ms Q-T Interval : 316 ms QTC Calculation(Bazett) : 457 ms Calculated P [place] : 77 degrees Calculated R [place] : 67 degrees Calculated T [place] : 63 degrees Sinus tachycardia Minimal voltage criteria for LVH, may be normal variant ( [place] product ) Septal infarct , age undetermined Abnormal ECG No previous ECGs available Confirmed by TASNEEM BALDWIN MD ([id number]) on 04/19/2025 4:38:09 PM NAME : GRACIE BANUELOS PID : [id number] : 1965 Gender : Female Race : ORD : [id number] Procedure Date : Mar 19 2025 15:33:31 Edit Date : Apr 19 2025 16:38:12 Diagnosis: Sinus tachycardia Minimal voltage criteria for LVH, may be normal variant ( [place] product ) Septal infarct , age undetermined Abnormal ECG No previous ECGs available Confirmed by TASNEEM BALDWIN MD ([id number]) on 04/19/2025 4:38:09 PM Test Reason : [place] : 8 : [place] [address] Overread By : TASNEEM BALDWIN MD Edited By : TASNEEM BALDWIN MD Referred By : MACARIO FELIZ Acquired by : 7m, Normal [facility] HIGH SENSITIVITY TROPONIN Io n 03-19-2025 Tropinin I.cardiac panel High sensitivity method 7.4 pg/mL Normal 0.0-34.0 [facility] Comment on above: Order Comment: Reggie fajardo Type: BLOOD SPECIMEN Ordering Facility: [facility] Address: [address] [place] [address] Performed By: #### 3 4528-0, 94419-9 #### [facility] CLIA [id number] [address] [place] [address] MEDICAL EMERon 03-19-2025 MEDICAL FREYA HNO ID: [id number] Author: CANDIE HORTA APRN.CNP Service: Critical Care [...] heart rate improved. She will remain on [facility]. Attending physicianwas at bedside and was aware. CCT: 17 min [facility] Magnesium SerPl-mCncon 03-19 Magnesium [Mass/Vol] 1.8 mg/dL Normal 1.6-2.6 [facility] Comment on above: Order Comment: Speci tana Type: BLOOD SPECIMEN Ordering Facility: [facility] Address: [address] [place] [address] Performed By: #### 3 4528-0, 93570-2 #### [facility] CLIA [id number] [address] [place] [address] [place] [facility] Natriuretic peptide.B prohormone N-Terminal [Mass/Vol] 3517 pg/mL High <125 [facility] Comment on above: Order Comment: Reggie fajardo Type: BLOOD SPECIMEN Ordering Facility: [facility] Address: [address] [place] [address] Result Comment: NT-p roBNP results of less than 300 pg/mL likely rules out acute congestive heart failure with 99% predictive value. NOTE: These cutoff points are suggested for ACUTE CHF DIAGNOSIS only Less than 50 years\X09\ Greater than 450 pg/mL 50 - 75 years\X09\\X09\ Greater than 900 pg/mL Greater than 75 years\X09\ Greater than 1800 pg/mL Performed By: #### 3 4528-0, 04743-0 #### [facility] CLIA [id number] [address] [place] [address] [place] Pro[address] [facility] 0 03-19-2025 Procalcitonin [Mass/Vol] 1.51 ng/mL High 0.00-0.50 [facility] Comment on above: Order Comment: Reggie fajardo Type: BLOOD SPECIMEN Ordering Facility: [facility] Address: [address] [place] [address] Result Comment: PCT Concentration Interpretation PCT <=0.1 [...] septic shock. Performed By: #### 3 4528-0, 20683-6 #### [facility] CLIA [id number] [address] [place] [id number] [place] STAPHYLOCOCCUS AUREUS AND MR SA SCREEN, PCR, NASALon 03-19-2025 S. aureus and MRSA panel KANDY+probe (Nose) Methicillin-SUSCEPTIBLE Staphylococcus aureus Detected Abnormal Not Detected [facility] Comment on above: Order Comment: Speci men Type: BLOOD SPECIMEN Ordering Facility: [facility] Address: [facility] [place] [address] Performed By: #### S LACTR #### [facility] CLIA [id number] [address] [place] [id number] [place] XR CHEST 1V [...] residual basilar and retrocardiac opacity. Dictated by Explosives Operator: Daniel Castro DO I, Jose Guadalupe Morocho MD, have supervised the procedure and/or image review, and agree with the above interpretation and report. Charge Entry: PSCTova Transcribe Date/Time: Mar 19 2025 3:35P Dictated by : DANIEL CASTRO DO This examination was interpreted and the report reviewed and electronically signed by: JOSE GUADALUPE MOROCHO MD on Kev 22 2025 3:41PM EST [id number] Normal [facility] Basic metabolic 2000 panelon 03-18-2025 Anion gap [Moles/Vol] 10 mmol/L Normal 5-16 [facility] Comment on above: Order Comment: Speci men Type: BLOOD SPECIMENOrdering Facility: [facility] Address: [address] [place] [address] Performed By: #### 2 4321-2, 43413-5, 2777-1, 6-4, 32756-5 ####[facility] [id number] [place] [id number] [place] Calcium [Mass/Vol] 9.1 mg/dL Normal 8.5-10.5 [facility] Comment on above: Order Comment: Speci men Type: BLOOD SPECIMENOrdering Facility: [facility] Address: [address] [place] [address] Performed By: #### 2 4321-2, 15830-6, 2777-1, 6-4, 77218-8 ####[facility] [id number] [place] [id number] [place] Chloride [Moles/Vol] 101 mmol/L Normal 98-107 [facility] Comment on above: Order Comment: Speci men Type: BLOOD SPECIMENOrdering Facility: [facility] Address: [address] [place] [address] Performed By: #### 2 4321-2, 81744-9, 2777-1, 6-4, 61426-4 ####[facility] [id number] [place] [id number] [place] CO2 [Moles/Vol] 31 mmol/L Normal 21-32 [facility] Comment on above: Order Comment: Speci men Type: BLOOD SPECIMENOrdering Facility: [facility] Address: [address] [place] [address] Performed By: #### 2 4321-2, 82061-4, 2777-1, 6-4, 86357-7 ####[facility] [id number] [place] [id number] [place] Creatinine [Mass/Vol] 0.52 mg/dL Normal 0.51-0.95 [facility] Comment on above: Order Comment: Reggie fajardo Type: BLOOD SPECIMENOrdering Facility: [facility] Address: [address] [place] [address] Result Comment: Gretta ents receiving either N-Acetylcysteine (NAC) or Metamizole prior to venipuncture, may have falsely depressed results. Performed By: #### 2 4321-2, 72381-0, 2777-1, 2276-4, 09122-1 ####[facility] [id number] [place] [id number] [facility] Creatinine and Glomerular filtration rate.predicted panel (S/P/Bld) 106 mL/min/1.73m??? Normal >=60 [facility] Comment on above: Order Comment: Reggie fajardo Type: BLOOD SPECIMENOrdering Facility: [facility] Address: [address] [place] [address] Result Comment: Pavan mated Glomerular Filtration Rate [...] actual GFR. Performed By: #### 2 4321-2, 04589-5, 2777-1, 6-4, 27827-2 ####[facility] [id number] [place] [id number] [place] Glucose [Mass/Vol] 103 mg/dL High 70-100 [facility] Comment on above: Order Comment: Reggie fajardo Type: BLOOD SPECIMENOrdering Facility: [facility] Address: [address] [place] [address] Result Comment: The [place] Diabetes [employer] (ADA) provides guidance for cutoff [...] Standards of Medical Care in Diabetes 2016, [place] [employer]. Diabetes Care. 2016.39(Suppl 1). Results may be falsely elevated after the administration of Sulfapyridine. Results may be falsely depressed after the administration of Sulfasalazine. Performed By: #### 2 4321-2, 11495-2, 2777-1, 6-4, 87265-3 ####[facility] [id number] [place] [id number] [place] Potassium [Moles/Vol] 3.5 mmol/L Normal 3.5-5.1 [facility] Comment on above: Order Comment: Reggie fajardo Type: BLOOD SPECIMENOrdering Facility: [facility] Address: [address] [place] [id number] Performed By: #### 2 4321-2, 05297-9, 2777-1, 6-4, 23126-5 ####[facility] [id number] [place] [id number] [place] Sodium [Moles/Vol] 142 mmol/L Normal 136-145 [facility] Comment on above: Order Comment: Reggie fajardo Type: BLOOD SPECIMENOrdering Facility: [facility] Address: [address] [place] [id number] Performed By: #### 2 4321-2, 26111-1, 2777-1, 6-4, 88484-2 ####[facility]IA [id number] [place] [id number] [place] Urea nitrogen [Mass/Vol] 10 mg/dL Normal 7-26 [facility] Comment on above: Order Comment: Kettyi men Type: BLOOD SPECIMENOrdering Facility: [facility] Address: [address] [place] [address] Performed By: #### 2 4321-2, 64218-7, 2777-1, 2276-4, 87564-3 ####[facility]ORYCLIA [id number] [place] [address] [place] C diff Tox gens Stl Ql KANDY+p robeon 03-18-2025 C. difficile toxin genes KANDY+probe Ql (Stl) Negative Normal Negative for C. difficile toxin by PCR [facility] Comment on above: Order Comment: Speci men Type: BLOOD SPECIMEN Ordering Facility: [facility] Address: [address] [place] [address] Performed By: #### 3 4528-0, 94442-9 #### [facility] CLIA [id number] [facility] [address] [place] CBC panel Auto (Bld)on 03-18 Erythrocyte distribution width (RBC) [Ratio] 15.1 % High 11.5-15.0 [facility] Comment on above: Order Comment: Speci men Type: BLOOD SPECIMENOrdering Facility: [facility] Address: [address] [place] [address] Performed By: #### 5 8410-2 ####[facility]ORYCLIA [id number] [address] [place] Hematocrit (Bld) [Volume fraction] 29.5 % Low 36.0-46.0 [facility] Comment on above: Order Comment: Speci men Type: BLOOD SPECIMENOrdering Facility: [facility] Address: [address] [place] [address] Performed By: #### 5 8410-2 ####[facility]ORYCLIA [id number] [place] [address] [place] Hemoglobin (Bld) [Mass/Vol] 9.2 g/dL Low 11.5-15.5 [facility] Comment on above: Order Comment: Speci men Type: BLOOD SPECIMENOrdering Facility: [facility] Address: [address] [place] [address] Performed By: #### 5 8410-2 ####[facility]ORYCLIA [id number] [address] MCH (RBC) [Entitic mass] 26.7 pg Normal 26.0-34.0 [facility] Comment on above: Order Comment: Speci men Type: BLOOD SPECIMENOrdering Facility: [facility] Address: [address] [place] [address] Performed By: #### 5 8410-2 ####[facility]ORYCLIA [id number] [address] [place] MCHC (RBC) [Mass/Vol] 31.2 g/dL Normal 30.5-36.0 [facility] Comment on above: Order Comment: Speci men Type: BLOOD SPECIMENOrdering Facility: [facility] Address: [address] [place] [address] Performed By: #### 5 8410-2 ####[facility]ORYCLIA [id number] [address] MCV (RBC) [Entitic vol] 85.5 fL Normal 80.0-100.0 [facility] Comment on above: Order Comment: Speci men Type: BLOOD SPECIMENOrdering Facility: [facility] Address: [address] [place] [address] Performed By: #### 5 8410-2 ####[facility]ORYCLIA [id number] [address] [place] Nucleated RBC (Bld) [#/Vol] 10*3/uL Normal <0.01 [facility] Comment on above: Order Comment: Speci men Type: BLOOD SPECIMENOrdering Facility: [facility] Address: [address] [place] [address] Performed By: #### 5 8410-2 ####[facility]ORYCLIA [id number] [address] [place] Platelet mean volume (Bld) [Entitic vol] 9.8 fL Normal 9.0-12.7 [facility] Comment on above: Order Comment: Speci men Type: BLOOD SPECIMENOrdering Facility: [facility] Address: [address] [place] [address] Performed By: #### 5 8410-2 ####[facility]ORYCLIA [id number] [place] [id number] [facility] Platelets (Bld) [#/Vol] 332 10*3/uL Normal 150-400 [facility] Comment on above: Order Comment: Speci men Type: BLOOD SPECIMENOrdering Facility: [facility] Address: [address] [place] [address] Performed By: #### 5 8410-2 ####[facility]ORYCLIA [id number] [place] [id number] [place] RBC (Bld) [#/Vol] 3.45 10*6/uL Low 3.90-5.20 [facility] Comment on above: Order Comment: Speci men Type: BLOOD SPECIMENOrdering Facility: [facility] Address: [address] [place] [address] Performed By: #### 5 8410-2 ####[facility]ORYCLIA [id number] [place] [id number] [facility] [place] WBC (Bld) [#/Vol] 17.37 10*3/uL High 3.70-11.00 [facility] Comment on above: Order Comment: Speci men Type: BLOOD SPECIMENOrdering Facility: [facility] Address: [address] [place] [address] Performed By: #### 5 8410-2 ####[facility] LABORATORYCLIA [id number] [place] [id number] [facility] [place] Calcium.ionized [Moles/Vol]o n 03-18-2025 Calcium.ionized (Bld) [Mass/Vol] 1.20 mmol/L Normal 1.08-1.30 [facility] Comment on above: Order Comment: Speci men Type: BLOOD SPECIMENOrdering Facility: [facility] Address: [address] [place] [address] Performed By: #### 1 995-0 ####[facility] LABORATORYCLIA [id number] [place] [address] [place] Calcium.ionized adjusted to pH 7.4 (Bld) [Moles/Vol] 1.22 mmol/L Normal 1.08-1.30 [facility] Comment on above: Order Comment: Speci men Type: BLOOD SPECIMENOrdering Facility: [facility] Address: [address] [place] [address] Performed By: #### 1 995-0 ####[facility] LABORATORYCLIA [id number] [place] [address] [place] Ferritin SerPl-mCncon 2024 Ferritin [Mass/Vol] 203.9 ng/mL Normal 8.0-307.0 [facility] Comment on above: Order Comment: Speci men Type: BLOOD SPECIMEN Ordering Facility: [facility] Address: [address] [place] [address] Performed By: #### 3 4528-0, 05889-9 #### [facility] CLIA [id number] [address] [place] [address] [place] Gastrointestinal pathogens p tuan KANDY+probe (Stl)on 03-18-2025 ADENOVIRUS F 40/41 DNA Not detected Normal Not Detecte d [facility] Comment on above: Order Comment: Speci men Type: BLOOD SPECIMEN Ordering Facility: [facility] Address: [address] [place] [address] Performed By: #### 3 4528-0, 94204-9 #### [facility] CLIA [id number] [address] [place] [address] [place] ASTROVIRUS RNA Not detected Normal Not Detected [facility] Comment on above: Order Comment: Speci men Type: BLOOD SPECIMEN Ordering Facility: [facility] Address: [address] [place] [address] Performed By: #### 3 4528-0, 70561-7 #### [facility] CLIA [id number] [address] [place] C. cayetanensis DNA KANDY+probe Ql (Unsp spec) Not detected Normal Not Detected [facility] Comment on above: Order Comment: Speci men Type: BLOOD SPECIMEN Ordering Facility: [facility] Address: [address] [place] [address] Performed By: #### 3 4528-0, 57089-0 #### [facility] CLIA [id number] [address] [place] [address] [place] Campylobacter sp DNA.diarrheagenic KANDY+probe Ql (Stl) Not detected Normal Not Detected [facility] Comment on above: Order Comment: Speci men Type: BLOOD SPECIMEN Ordering Facility: [facility] Address: [address] [place] [address] Performed By: #### 3 4528-0, 44298-3 #### [facility] CLIA [id number] [address] [place] [address] [place] Cryptosporidium sp DNA KANDY+probe Ql (Unsp spec) Not detected Normal Not Detected [facility] Comment on above: Order Comment: Speci men Type: BLOOD SPECIMEN Ordering Facility: [facility] Address: [address] [place] [address] Performed By: #### 3 4528-0, 46756-3 #### [facility] CLIA [id number] [address] [place] [address] [place] E. coli O157:H7 DNA KANDY+probe Ql (Unsp spec) Not applicable Normal Not detected [facility] Comment on above: Order Comment: Speci men Type: BLOOD SPECIMEN Ordering Facility: [facility] Address: [address] [place] [address] Performed By: #### 3 4528-0, 34247-7 #### [facility] CLIA [id number] [address] [place] [address] [place] E. coli stx1+stx2 genes KANDY+probe Ql (Stl) Not detected Normal Not Detected [facility] Comment on above: Order Comment: Speci men Type: BLOOD SPECIMEN Ordering Facility: [facility] Address: [address] [place] [address] Performed By: #### 3 4528-0, 47712-9 #### [facility] CLIA [id number] [address] [place] [address] [place] E. histolytica DNA KANDY+probe Ql (Unsp spec) Not detected Normal Not Detected [facility] Comment on above: Order Comment: Speci men Type: BLOOD SPECIMEN Ordering Facility: [facility] Address: [address] [place] [address] Performed By: #### 3 4528-0, 86820-0 #### [facility] CLIA [id number] [address] [place] [address] [place] ENTEROAGGREGATIVE E. COLI (EAEC) DNA Not detected Normal Not Detected [facility] Comment on above: Order Comment: Speci men Type: BLOOD SPECIMEN Ordering Facility: [facility] Address: [address] [place] [address] Performed By: #### 3 4528-0, 01614-0 #### [facility] CLIA [id number] [address] [place] [address] [place] ENTEROPATHOGENIC E. COLI (EPEC) DNA Not detected Normal Not detected [facility] Comment on above: Order Comment: Speci men Type: BLOOD SPECIMEN Ordering Facility: [facility] Address: [address] [place] [address] Performed By: #### 3 4528-0, 70322-0 #### [facility] CLIA [id number] [address] [place] [address] [place] ENTEROTOXIGENIC E. COLI (ETEC) DNA Not detected Normal Not Detected [facility] Comment on above: Order Comment: Speci men Type: BLOOD SPECIMEN Ordering Facility: [facility] Address: [address] [place] [address] Performed By: #### 3 4528-0, 31852-9 #### [facility] CLIA [id number] [address] [place] [address] [place] G. lamblia DNA KANDY+probe Ql (Unsp spec) Not detected Normal Not Detected [facility] Comment on above: Order Comment: Speci men Type: BLOOD SPECIMEN Ordering Facility: [facility] Address: [address] [place] [address] Performed By: #### 3 4528-0, 78342-9 #### [facility] CLIA [id number] [address] [place] [address] OF [facility] NOROVIRUS GI/GII RNA Detected Abnormal Not Detected [facility] Comment on above: Order Comment: Speci men Type: BLOOD SPECIMEN Ordering Facility: [facility] Address: [address] [place] [address] Result Comment: The Espresso Logicarray Gastrointestinal Panel has known specificity limitations for norovirus detection. False positives are more likely when prevalence is low (ie. summer). Standalone norovirus PCR (SQNORPCR) is available if confirmation is desired. Performed By: #### 3 4528-0, 65037-9 #### [facility] CLIA [id number] [address] [place] [address] PLESIOMONAS SHIGELLOIDES DNA Not detected Normal Not Detected [facility] Comment on above: Order Comment: Speci men Type: BLOOD SPECIMEN Ordering Facility: [facility] Address: [address] [place] [address] Performed By: #### 3 4528-0, 92357-9 #### [facility] CLIA [id number] [address] [place] [address] [place] ROTAVIRUS A RNA Not detected Normal Not Detected [facility] Comment on above: Order Comment: Speci men Type: BLOOD SPECIMEN Ordering Facility: [facility] Address: [address] [place] [address] Performed By: #### 3 4528-0, 60641-4 #### [facility] CLIA [id number] [address] [place] [address] [place] Salmonella sp DNA KANDY+probe Ql (Unsp spec) Not detected Normal Not Detected [facility] Comment on above: Order Comment: Speci men Type: BLOOD SPECIMEN Ordering Facility: [facility] Address: [address] [place] [address] Performed By: #### 3 4528-0, 43826-5 #### [facility] CLIA [id number] [address] [place] [address] [place] SAPOVIRUS (GENOGROUPS I, II, IV, V) RNA Not detected Normal Not Detected [facility] Comment on above: Order Comment: Speci men Type: BLOOD SPECIMEN Ordering Facility: [facility] Address: [address] [place] [address] Performed By: #### 3 4528-0, 22643-3 #### [facility] CLIA [id number] [address] [place] [address] [place] Shigella species+EIEC invasion plasmid antigen H ipaH gene KANDY+probe Ql (Stl) Not detected Normal Not Detected [facility] Comment on above: Order Comment: Speci men Type: BLOOD SPECIMEN Ordering Facility: [facility] Address: [address] [place] [address] Performed By: #### 3 4528-0, 66025-6 #### [facility] CLIA [id number] [address] [place] [address] [place] V. cholerae DNA KANDY+probe Ql (Unsp spec) Not detected Normal Not Detected [facility] Comment on above: Order Comment: Speci men Type: BLOOD SPECIMEN Ordering Facility: [facility] Address: [address] [place] [address] Performed By: #### 3 4528-0, 42864-4 #### [facility] CLIA [id number] [address] [place] [address] [place] Vibrio sp DNA KANDY+probe Nom (Unsp spec) Not detected Normal Not Detected [facility] Comment on above: Order Comment: Speci men Type: BLOOD SPECIMEN Ordering Facility: [facility] Address: [address] [place] [address] Performed By: #### 3 4528-0, 82971-1 #### [facility] CLIA [id number] [address] [place] [address] [place] Yersinia sp DNA KANDY+probe Nom (Unsp spec) Not detected Normal Not Detected [facility] Comment on above: Order Comment: Speci men Type: BLOOD SPECIMEN Ordering Facility: [facility] Address: [address] [place] [address] Performed By: #### 3 4528-0, 02371-0 #### [facility] CLIA [id number] [address] [place] [address] [place] Iron and Iron binding capaci ty panelon 03-18-2025 Iron [Mass/Vol] 16 ug/dL Low 50-170 [facility] Comment on above: Order Comment: Speci men Type: BLOOD SPECIMEN Ordering Facility: [facility] Address: [address] [place] [address] Result Comment: Gretta ents treated with metal-binding drugs (e.g.deferoxamine) may have depressed iron values, as chelated iron may not properly react in the Siemens iron assay. Performed By: #### 3 4528-0, 71766-2 #### [facility] CLIA [id number] [address] [place] [address] [place] Iron binding capacity [Mass/Vol] 203 ug/dL Low 221-481 [facility] Comment on above: Order Comment: Speci men Type: BLOOD SPECIMEN Ordering Facility: [facility] Address: [address] [place] [address] Performed By: #### 3 4528-0, 57791-3 #### [facility] CLIA [id number] [address] [place] [address] [place] Iron/TIBC [Molar ratio] 7.9 % Low 22.0-44.0 [facility] Comment on above: Order Comment: Speci men Type: BLOOD SPECIMEN Ordering Facility: [facility] Address: [address] [place] [address] Performed By: #### 3 4528-0, 69291-9 #### [facility] CLIA [id number] [address] [place] [address] [place] Magnesium SerPl-ncon 03-18 Magnesium [Mass/Vol] 1.6 mg/dL Normal 1.6-2.6 [facility] Comment on above: Order Comment: Reggie fajardo Type: BLOOD SPECIMEN Ordering Facility: [facility] Address: [address] [place] [address] Performed By: #### 3 4528-0, 92114-8 #### [facility] CLIA [id number] [address] [place] [address] NURSING PROGon 03-18-2025 NURSING PROG HNO ID: [id number] Author: RINKU STERN RN Service: Nursing Author Type: Registered Nurse Type: Nursing Progress Note Filed: 03/18/2025 10:54 Note Text: Other: Patient Med Rec incomplete on transfer, Nurse Colleen Notified on 7m, patient unsure of medications, asked sister (Domonique) to bring in list from home. Report called, all questions answered. Normal [facility] Phosphate [facility] 03-18 Phosphate [Mass/Vol] 3.8 mg/dL Normal 2.5-4.9 [facility] Comment on above: Order Comment: Reggie fajardo Type: BLOOD SPECIMEN Ordering Facility: [facility] Address: [address] [place] [address] Result Comment: DELT A CHECK&XA&Delta Check Reviewed Elevated m-protein (paraprotein) levels in the serum may be exhibited in patients with monoclonal gammopathies, causing falsely elevated inorganic phosphorus results. Performed By: #### 3 4528-0, 28240-1 #### [facility] CLIA [id number] [address] [place], [place] [address] [place] Respiratory Cultureon 2024 RESPC Normal [facility] Comment on above: Performed By: #### M 100.2000, M100.2400 ####[facility] [id number] [place], [address] Basic metabolic 2000 panelon 03-17-2025 Anion gap [Moles/Vol] 4 mmol/L Low 5-16 [facility] Comment on above: Order Comment: Speci men Type: BLOOD SPECIMENOrdering Facility: [facility] Address: [address] [facility] [place] [address] Performed By: #### 2 4321-2, , 2776-09 ####[facility] LABORATORYCLIA [id number] [place] [id number] [place] Calcium [Mass/Vol] 9.0 mg/dL Normal 8.5-10.5 [facility] Comment on above: Order Comment: Speci men Type: BLOOD SPECIMENOrdering Facility: [facility] Address: [address] [place] [address] Performed By: #### 2 4321-2, , 2776-09 ####[facility]ORATORYCLIA [id number] [place] [id number] [place] Chloride [Moles/Vol] 104 mmol/L Normal 98-107 [facility] Comment on above: Order Comment: Speci men Type: BLOOD SPECIMENOrdering Facility: [facility] Address: [address] [place] [address] Performed By: #### 2 4321-2, , 2776-09 ####[facility] LABORATORYCLIA [id number] [place] [id number] [place] CO2 [Moles/Vol] 32 mmol/L Normal 21-32 [facility] Comment on above: Order Comment: Speci men Type: BLOOD SPECIMENOrdering Facility: [facility] Address: [address] [place] [address] Performed By: #### 2 4321-2, , 2776-09 ####[facility]ORATORYCLIA [id number] [place] [id number] [place] Creatinine [Mass/Vol] 0.65 mg/dL Normal 0.51-0.95 [facility] Comment on above: Order Comment: Speci men Type: BLOOD SPECIMENOrdering Facility: [facility] Address: [address] [place] [address] Result Comment: Gretta ents receiving either N-Acetylcysteine (NAC) or Metamizole prior to venipuncture, may have falsely depressed results. Performed By: #### 2 4321-2, 20803-8, 2776-09 ####[facility]ORATORYCLIA [id number] [place] [id number] [place] Creatinine and Glomerular filtration rate.predicted panel (S/P/Bld) 100 mL/min/1.73m??? Normal >=60 [facility] Comment on above: Order Comment: Reggie fajardo Type: BLOOD SPECIMENOrdering Facility: [facility] Address: [address] [place] [address] Result Comment: Pavan mated Glomerular Filtration Rate [...] actual GFR. Performed By: #### 2 4321-2, 12122-8, 2776-09 ####[facility]ORATORYCLIA [id number] [place] [address] [place] Glucose [Mass/Vol] 179 mg/dL High 70-100 [facility] Comment on above: Order Comment: Reggie fajardo Type: BLOOD SPECIMENOrdering Facility: [facility] Address: [address] [place] [address] Result Comment: The [place] [employer] (ADA) provides guidance for cutoff [...] Standards of Medical Care in Diabetes 2016, [place] [employer]. Diabetes Care. 2016.39(Suppl 1). Results may be falsely elevated after the administration of Sulfapyridine. Results may be falsely depressed after the administration of Sulfasalazine. Performed By: #### 2 4321-2, , 2776-09 ####[facility]ORATORYCLIA [id number] [place] [id number] [place] Potassium [Moles/Vol] 2.4 mmol/L Critically low 3.5-5.1 [facility] Comment on above: Order Comment: Speci men Type: BLOOD SPECIMENOrdering Facility: [facility] Address: [address] [place] [address] Result Comment: CRIT ICAL Performed By: #### 2 4321-2, , 2776-09 ####[facility]ORATORYCLIA [id number] [place] [id number] [place] Sodium [Moles/Vol] 140 mmol/L Normal 136-145 [facility] Comment on above: Order Comment: Speci men Type: BLOOD SPECIMENOrdering Facility: [facility] Address: [address] [place] [address] Performed By: #### 2 4321-2, , 2776-09 ####[facility]ORATORYCLIA [id number] [place] [id number] [place] Urea nitrogen [Mass/Vol] 11 mg/dL Normal 7-26 [facility] Comment on above: Order Comment: Kettyi men Type: BLOOD SPECIMENOrdering Facility: [facility] Address: [address] [place] [address] Performed By: #### 2 4321-2, , 2776-09 ####[facility]ATORYCLIA [id number] [place] [id number] [place] CBC panel Auto (Bld)on 03-17 Erythrocyte distribution width (RBC) [Ratio] 14.6 % Normal 11.5-15.0 [facility] Comment on above: Order Comment: Speci men Type: BLOOD SPECIMENOrdering Facility: [facility] Address: [address] [place] [address] Performed By: #### 5 8410-2 ####[facility] LABORATORYCLIA [id number] [address] [place] Hematocrit (Bld) [Volume fraction] 29.9 % Low 36.0-46.0 [facility] Comment on above: Order Comment: Speci men Type: BLOOD SPECIMENOrdering Facility: [facility] Address: [address] [place] [address] Performed By: #### 5 8410-2 ####[facility]ORATORYCLIA [id number] [address] [place] Hemoglobin (Bld) [Mass/Vol] 9.3 g/dL Low 11.5-15.5 [facility] Comment on above: Order Comment: Speci men Type: BLOOD SPECIMENOrdering Facility: [facility] Address: [address] [place] [address] Performed By: #### 5 8410-2 ####[facility]ORATORYCLIA [id number] [address] [place] MCH (RBC) [Entitic mass] 26.4 pg Normal 26.0-34.0 [facility] Comment on above: Order Comment: Speci men Type: BLOOD SPECIMENOrdering Facility: [facility] Address: [address] [place] [address] Performed By: #### 5 8410-2 ####[facility]ORATORYCLIA [id number] [address] [place] MCHC (RBC) [Mass/Vol] 31.1 g/dL Normal 30.5-36.0 [facility] Comment on above: Order Comment: Speci men Type: BLOOD SPECIMENOrdering Facility: [facility] Address: [address] [place] [address] [place] [address] Performed By: #### 5 8410-2 ####[facility] LABORATORYCLIA [id number] [address] [place] MCV (RBC) [Entitic vol] 84.9 fL Normal 80.0-100.0 [facility] Comment on above: Order Comment: Speci men Type: BLOOD SPECIMENOrdering Facility: [facility] Address: [address] [place] [address] Performed By: #### 5 8410-2 ####[facility] LABORATORYCLIA [id number] [place] [id number] [place] Nucleated RBC (Bld) [#/Vol] 10*3/uL Normal <0.01 [facility] Comment on above: Order Comment: Speci men Type: BLOOD SPECIMENOrdering Facility: [facility] Address: [address] [place] [address] Performed By: #### 5 8410-2 ####[facility] LABORATORYCLIA [id number] [place] [address] [place] Platelet mean volume (Bld) [Entitic vol] 10.4 fL Normal 9.0-12.7 [facility] Comment on above: Order Comment: Speci men Type: BLOOD SPECIMENOrdering Facility: [facility] Address: [address] [place] [address] Performed By: #### 5 8410-2 ####[facility] LABORATORYCLIA [id number] [place] [address] [place] Platelets (Bld) [#/Vol] 333 10*3/uL Normal 150-400 [facility] Comment on above: Order Comment: Speci men Type: BLOOD SPECIMENOrdering Facility: [facility] Address: [address] [place] [address] Performed By: #### 5 8410-2 ####[facility] LABORATORYCLIA [id number] [place] [address] [place] RBC (Bld) [#/Vol] 3.52 10*6/uL Low 3.90-5.20 [facility] Comment on above: Order Comment: Speci men Type: BLOOD SPECIMENOrdering Facility: [facility] Address: [address] [place] [address] Performed By: #### 5 8410-2 ####[facility] LABORATORYCLIA [id number] [place] [id number] [place] WBC (Bld) [#/Vol] 19.89 10*3/uL High 3.70-11.00 [facility] Comment on above: Order Comment: Speci tana Type: BLOOD SPECIMENOrdering Facility: [facility] Address: [address] [place] [address] Performed By: #### 5 8410-2 ####[facility] LABORATORYCLIA [id number] [place] [id number] [place] Magnesium SerPl-ncon 03-17 Magnesium [Mass/Vol] 1.8 mg/dL Normal 1.6-2.6 [facility] Comment on above: Order Comment: Speci men Type: BLOOD SPECIMENOrdering Facility: [facility] Address: [address] [place] [address] Performed By: #### 2 4321-2, 78863-4, 2777-1 ####[facility]ORATORYCLIA [id number] [place] [id number] [place] Phosphate SerPl-mCncon 03-17 Phosphate [Mass/Vol] 1.0 mg/dL Low 2.5-4.9 [facility] Comment on above: Order Comment: Speci tana Type: BLOOD SPECIMENOrdering Facility: [facility] Address: [address] [place] [address] Result Comment: CRIT ICAL Elevated m-protein (paraprotein) levels in the serum may be exhibited in patients with monoclonal gammopathies, causing falsely elevated inorganic phosphorus results. Performed By: #### 2 4321-2, 39117-2, 2777-1 ####[facility] [id number] [place] [id number] [place] ALLIED HEALTHon 03-16-2025 ALLIED HEALTH HNO ID: [id number] Author: SUELLEN CALDERON Tech Service: Radiology Author Type: Signals Collector/Analyst Type: Allied Health Filed: 03/16/2025 01:47 Note Text: -------- Summary: ct -------- Radiology Service Progress Note DATE OF SERVICE: [...] PATIENT PRESENTS WITH AN IMPLANTABLE OR ATTACHED HORTICULTURAL MANAGER: No ALLERGIES: Reviewed and unchanged CONTRAST [...] March 16, 2025 TIME: 1:46 AM Normal [facility] ARTERIAL BLOOD GASESon 03-16 Base deficit (BldA) [Moles/Vol] -5 mmol/L Low -2-0 [facility] Comment on above: Order Comment: Reggie fajardo Type: ARTERIAL BLOOD SPECIMEN Ordering Facility: [facility] Address: [address] [place] [address] Performed By: #### A LLBG #### [facility] CLIA [id number] [address] [place] [address] [place] Body temperature 97.52 [degF] Normal [facility] Comment on above: Order Comment: Reggie fajardo Type: ARTERIAL BLOOD SPECIMEN Ordering Facility: [facility] Address: [address] [place] [address] Performed By: #### A LLBG #### [facility] CLIA [id number] [address] [place] [address] [place] Calcium.ionized (Bld) [Mass/Vol] 1.20 mmol/L Normal 1.08-1.30 [facility] Comment on above: Order Comment: Reggie fajardo Type: ARTERIAL BLOOD SPECIMEN Ordering Facility: [facility] Address: [address] [place] [address] Performed By: #### A LLBG #### [facility] CLIA [id number] [address] [place] [address] [place] Carboxyhemoglobin (BldA) [Mass fraction] 0.3 % Normal 0.0-2.0 [facility] Comment on above: Order Comment: Reggie fajardo Type: ARTERIAL BLOOD SPECIMEN Ordering Facility: [facility] Address: [address] [place] [address] Result Comment: Carb oxyhemoglobin Reference Range for Smokers: 2.0-8.0% Performed By: #### A LLBG #### [facility] CLIA [id number] [address] [place] [address] [place] CO2 (Bld) [Partial pressure] 46 mm Hg Normal 36-46 [facility] Comment on above: Order Comment: Speci men Type: ARTERIAL BLOOD SPECIMEN Ordering Facility: [facility] Address: [address] [place] [address] Performed By: #### A LLBG #### [facility] CLIA [id number] [address] [place] [address] [place] CO2 adjusted to patient's actual temperature (Bld) [Partial pressure] Normal [facility] Comment on above: Order Comment: Speci men Type: ARTERIAL BLOOD SPECIMEN Ordering Facility: [facility] Address: [address] [place] [address] Performed By: #### A LLBG #### [facility] CLIA [id number] [address] [place] [address] [place] FIO2 100.0 % Normal [facility] Comment on above: Order Comment: Speci men Type: ARTERIAL BLOOD SPECIMEN Ordering Facility: [facility] Address: [address] [place] [address] Performed By: #### A LLBG #### [facility] CLIA [id number] [address] [place] [address] [place] Glucose [Mass/Vol] 187 mg/dL High 60-105 [facility] Comment on above: Order Comment: Speci men Type: ARTERIAL BLOOD SPECIMEN Ordering Facility: [facility] Address: [address] [place] [address] Performed By: #### A LLBG #### [facility] CLIA [id number] [address] [place] [address] [place] HCO3 (Bld) [Moles/Vol] 22 mmol/L Normal 22-26 [facility] Comment on above: Order Comment: Speci men Type: ARTERIAL BLOOD SPECIMEN Ordering Facility: [facility] Address: [address] [place] [address] Performed By: #### A LLBG #### [facility] CLIA [id number] [address] [place] [address] [place] Hemoglobin (Bld) [Mass/Vol] 11.4 g/dL Low 11.5-15.5 [facility] Comment on above: Order Comment: Speci men Type: ARTERIAL BLOOD SPECIMEN Ordering Facility: [facility] Address: [address] [place] [address] Performed By: #### A LLBG #### [facility] CLIA [id number] [address] [place] [address] [place] INHALED TIDAL VOLUME (ML) 420 Normal [facility] Comment on above: Order Comment: Speci men Type: ARTERIAL BLOOD SPECIMEN Ordering Facility: [facility] Address: [address] [place] [address] Performed By: #### A LLBG #### [facility] CLIA [id number] [address] [place] [address] [place] INVASIVE VENTILATOR MODE A/C PRVC or VC+ or APVcmv (PC-CMVa) Normal [facility] Comment on above: Order Comment: Speci men Type: ARTERIAL BLOOD SPECIMEN Ordering Facility: [facility] Address: [address] [place] [address] Performed By: #### A LLBG #### [facility] CLIA [id number] [address] [place] [address] [place] Lactate [Moles/Vol] 1.6 mmol/L Normal 0.5-2.2 [facility] Comment on above: Order Comment: Speci men Type: ARTERIAL BLOOD SPECIMEN Ordering Facility: [facility] Address: [address] [place] [address] Performed By: #### A LLBG #### [facility] CLIA [id number] [address] [place] [address] [place] Methemoglobin (Bld) [Mass fraction] 0.4 % Normal 0.0-1.5 [facility] Comment on above: Order Comment: Speci men Type: ARTERIAL BLOOD SPECIMEN Ordering Facility: [facility] Address: [address] [place] [address] Performed By: #### A LLBG #### [facility] CLIA [id number] [address] [place] [address] [place] MINUTE VENTILATION 8 L/min Normal [facility] Comment on above: Order Comment: Speci men Type: ARTERIAL BLOOD SPECIMEN Ordering Facility: [facility] Address: [address] [place] [address] Performed By: #### A LLBG #### [facility] CLIA [id number] [address] [place] [address] [place] O2 THERAPY VENT=Ventilator Normal [facility] Comment on above: Order Comment: Speci men Type: ARTERIAL BLOOD SPECIMEN Ordering Facility: [facility] Address: [address] [place] [address] Performed By: #### A LLBG #### [facility] CLIA [id number] [address] [place] [address] [place] Oxygen (Bld) [Partial pressure] 92 mm Hg Normal 85-95 [facility] Comment on above: Order Comment: Speci men Type: ARTERIAL BLOOD SPECIMEN Ordering Facility: [facility] Address: [address] [place] [address] Performed By: #### A LLBG #### [facility] CLIA [id number] [address] [place] [address] [place] Oxygen adjusted to patient's actual temperature (Bld) [Partial pressure] Normal [facility] Comment on above: Order Comment: Speci men Type: ARTERIAL BLOOD SPECIMEN Ordering Facility: [facility] Address: [address] [place] [address] Performed By: #### A LLBG #### [facility] CLIA [id number] [address] [place], [place] [address] [place] Oxyhemoglobin (BldA) [Mass fraction] 96 % Normal 95-98 [facility] Comment on above: Order Comment: Speci men Type: ARTERIAL BLOOD SPECIMEN Ordering Facility: [facility] Address: [address] [place] [address] Performed By: #### A LLBG #### [facility] CLIA [id number] [address] [place] [address] [place] PEEP/CPAP 8 cmH2O Normal [facility] Comment on above: Order Comment: Speci men Type: ARTERIAL BLOOD SPECIMEN Ordering Facility: [facility] Address: [address] [place] [address] Performed By: #### A LLBG #### [facility] CLIA [id number] [address] [place] [address] [place] pH (Bld) 7.29 [pH] Low 7.35-7.45 [facility] Comment on above: Order Comment: Speci men Type: ARTERIAL BLOOD SPECIMEN Ordering Facility: [facility] Address: [address] [place] [address] Performed By: #### A LLBG #### [facility] CLIA [id number] [address] [place] [address] pH adjusted to patient's actual temperature (Bld) Normal [facility] Comment on above: Order Comment: Speci men Type: ARTERIAL BLOOD SPECIMEN Ordering Facility: [facility] Address: [address] [place] [address] Performed By: #### A LLBG #### [facility] CLIA [id number] [address] [place] [address] [place] PO2 / FIO2 RATIO 92 mmHg Low >300 [facility] Comment on above: Order Comment: Speci men Type: ARTERIAL BLOOD SPECIMEN Ordering Facility: [facility] Address: [address] [place] [address] Performed By: #### A LLBG #### [facility] CLIA [id number] [address] [place] [address] [place] Potassium [Moles/Vol] 3.5 mmol/L Normal 2.5-6.0 [facility] Comment on above: Order Comment: Speci men Type: ARTERIAL BLOOD SPECIMEN Ordering Facility: [facility] Address: [address] [place] [address] Performed By: #### A LLBG #### [facility] CLIA [id number] [address] [place] [address] [place] SET VENTILATOR RESPIRATORY RATE (BPM) 20 BPM Normal [facility] Comment on above: Order Comment: Speci men Type: ARTERIAL BLOOD SPECIMEN Ordering Facility: [facility] Address: [address] [place] [address] Performed By: #### A LLBG #### [facility] CLIA [id number] [address] [place] [address] [place] Sodium [Moles/Vol] 140 mmol/L Normal 136-144 [facility] Comment on above: Order Comment: Speci men Type: ARTERIAL BLOOD SPECIMEN Ordering Facility: [facility] Address: [address] [place] [address] Performed By: #### A LLBG #### [facility] CLIA [id number] [address] [place] [address] [place] Bacteria Bld Culton 03-16-20 Bacteria identified Cx Nom (Bld) CULTURE, BLOOD: No growth 5 days Normal [facility] Comment on above: Performed By: #### 2 4323-8, 3040-3, 28483-7, 2777-1, 2571-8 #### [facility] CLIA [id number] [address] [place] [address] [place] Bacteria identified Cx Nom (Bld) CULTURE, BLOOD: No growth 5 days Normal [facility] Comment on above: Performed By: #### 2 4323-8, 3040-3, 13416-0, 2777-1, 2571-8 #### [facility] CLIA [id number] [address] [place] [address] [place] Bacteria Spec Resp [...] AGNIESZKA STATUS REFERENCE RANGE Penicillin (oral) S <=0.93744 F Susceptible <=0.06 , Intermediate >.06 , Resistant >1 Penicillin Non-Meningitis S <=0.80888 F Susceptible <=2 , Intermediate >2 , Resistant >=8 Penicillin Meningitis S <=0.37302 F Susceptible <=0.06 , Resistant >.06 Ceftriaxone Meningitis S <=0.0625 F Susceptible <=0.5 , Intermediate >.5 , Resistant >=2 Ceftriaxone Non-Meningitis S <=0.0625 F Susceptible <=1 , Intermediate >1 , Resistant >2 Cefepime S <=0.0625 F Susceptible <=1 , Intermediate >1 , Resistant >2 Meropenem S <=0.0625 F Susceptible <=0.25 , Intermediate >.25 , Resistant >.5 Erythromycin S <=0.53374 F Susceptible <=0.25 , Intermediate >.25 , [...] staphylococci are susceptible to other penicilllinase-stable penicillins, beta-lactam/beta-lactama se inhibitor combinations, anti-staphylococcal cephems, and carbapenems. Gentamicin [...] , Intermediate >4 , Resistant >8 Abnormal [facility] Comment on above: Performed By: #### 3 4528-0, 03831-3 #### [facility] CLIA [id number] [address] [place] [address] [place] Basic Metabolic Profile (BMP )on 03-16-2025 BUN Normal 01-14 [facility] Comment on above: Result Comment: Canc elled via OM: Order cancelled - Patient discharged Performed By: #### L 500.2500, L100.0100 ####[facility] [address] [place], [address] BUN/CRE Normal 10-20 [facility] Comment on above: Result Comment: Canc elled via OM: Order cancelled - Patient discharged Performed By: #### L 500.2500, L100.0100 ####[facility] [address] [place], [address] Calcium Normal 7.6-11.0 [facility] Comment on above: Result Comment: Canc elled via OM: Order cancelled - Patient discharged Performed By: #### L 500.2500, L100.0100 ####[facility] [address] [place], [address] CL Normal 98-108 [facility] Comment on above: Result Comment: Canc elled via OM: Order cancelled - Patient discharged Performed By: #### L 500.2500, L100.0100 ####[facility] [address] [place], [address] CO2 Normal 21.0-32.0 [facility] Comment on above: Result Comment: Canc elled via OM: Order cancelled - Patient discharged Performed By: #### L 500.2500, L100.0100 ####[facility] [address] [place], [address] CREAT,SERUM Normal 0.70-1.20 [facility] Comment on above: Result Comment: Canc elled via OM: Order cancelled - Patient discharged Performed By: #### L 500.2500, L100.0100 ####[facility] [address] [place], [address] eGFR Normal >60 [facility] Comment on above: Result Comment: Canc elled via OM: Order cancelled - Patient discharged Performed By: #### L 500.2500, L100.0100 ####[facility] [address] [place], [address] GAP Normal 5-15 [facility] Comment on above: Result Comment: Canc elled via OM: Order cancelled - Patient discharged Performed By: #### L 500.2500, L100.0100 ####[facility] [address] [place], [address] GLU Normal 70-99 [facility] Comment on above: Result Comment: Canc elled via OM: Order cancelled - Patient discharged Performed By: #### L 500.2500, L100.0100 ####[facility] [address] [place], [address] Potassium Normal 3.3-5.1 [facility] Comment on above: Result Comment: Canc elled via OM: Order cancelled - Patient discharged Performed By: #### L 500.2500, L100.0100 ####[facility] [address] [place], [address] Basic Metabolic Profile (BMP) Normal 133-145 [facility] Comment on above: Result Comment: Canc elled via OM: Order cancelled - Patient discharged Performed By: #### L 500.2500, L100.0100 ####[facility] [address] [place], [address] CBC W/Diff, Automatedon 06- Absolute Neut Normal 2.0-7.7 [facility] Comment on above: Result Comment: Canc elled via OM: Order cancelled - Patient discharged Performed By: #### L 500.2500, L100.0100 ####[facility] [address] [place], [address] HCT Normal 37-47 [facility] Comment on above: Result Comment: Canc elled via OM: Order cancelled - Patient discharged Performed By: #### L 500.2500, L100.0100 ####[facility] [address] [place], [address] HGB Normal 12.0-15.0 [facility] Comment on above: Result Comment: Canc elled via OM: Order cancelled - Patient discharged Performed By: #### L 500.2500, L100.0100 ####[facility] [address] [place], [address] MCH Normal 27.0-32.0 [facility] Comment on above: Result Comment: Canc elled via OM: Order cancelled - Patient discharged Performed By: #### L 500.2500, L100.0100 ####[facility] [address] [place], [address] MCHC Normal 32-36 [facility] Comment on above: Result Comment: Canc elled via OM: Order cancelled - Patient discharged Performed By: #### L 500.2500, L100.0100 ####[facility] [address] [place], [address] MCV Normal 81-99 [facility] Comment on above: Result Comment: Canc elled via OM: Order cancelled - Patient discharged Performed By: #### L 500.2500, L100.0100 ####[facility] [address] [place], [address] NEUT% Normal 47-70 [facility] Comment on above: Result Comment: Canc elled via OM: Order cancelled - Patient discharged Performed By: #### L 500.2500, L100.0100 ####[facility] [address] [place], [address] PLT Normal 150-450 [facility] Comment on above: Result Comment: Canc elled via OM: Order cancelled - Patient discharged Performed By: #### L 500.2500, L100.0100 ####[facility] [address] [place], [address] RBC Normal 4.2-5.4 [facility] Comment on above: Result Comment: Canc elled via OM: Order cancelled - Patient discharged Performed By: #### L 500.2500, L100.0100 ####[facility] [address] [place], [address] RDW CV Normal 11.6-14.6 [facility] Comment on above: Result Comment: Canc elled via OM: Order cancelled - Patient discharged Performed By: #### L 500.2500, L100.0100 ####[facility] [address] [place], [address] RDW SD Normal 35.1-43.9 [facility] Comment on above: Result Comment: Canc elled via OM: Order cancelled - Patient discharged Performed By: #### L 500.2500, L100.0100 ####[facility] [address] [place], [address] WBC Normal 4.4-11.0 [facility] Comment on above: Result Comment: Canc elled via OM: Order cancelled - Patient discharged Performed By: #### L 500.2500, L100.0100 ####[facility] [address] [place], [address] CBC panel Auto (Bld)on 03-16 Erythrocyte distribution width (RBC) [Ratio] 14.6 % Normal 11.5-15.0 [facility] Comment on above: Order Comment: Reggie fajardo Type: BLOOD SPECIMEN Ordering Facility: [facility] Address: [address] [place] [address] Performed By: #### 5 8410-2 #### [facility] CLIA [id number] [address] [place] [address] [place] Hematocrit (Bld) [Volume fraction] 32.8 % Low 36.0-46.0 [facility] Comment on above: Order Comment: Kettyi men Type: BLOOD SPECIMEN Ordering Facility: [facility] Address: [address] [place] [address] Performed By: #### 5 8410-2 #### [facility] CLIA [id number] [address] [place] [address] OF [facility] Hemoglobin (Bld) [Mass/Vol] 10.1 g/dL Low 11.5-15.5 [facility] Comment on above: Order Comment: Speci men Type: BLOOD SPECIMEN Ordering Facility: [facility] Address: [address] [place] [address] Performed By: #### 5 8410-2 #### [facility] CLIA [id number] [address] [place] [address] [place] MCH (RBC) [Entitic mass] 27.2 pg Normal 26.0-34.0 [facility] Comment on above: Order Comment: Speci men Type: BLOOD SPECIMEN Ordering Facility: [facility] Address: [address] [place] [address] Performed By: #### 5 8410-2 #### [facility] CLIA [id number] [address] [place] [address] STATES [facility] MCHC (RBC) [Mass/Vol] 30.8 g/dL Normal 30.5-36.0 [facility] Comment on above: Order Comment: Speci men Type: BLOOD SPECIMEN Ordering Facility: [facility] Address: [address] [place] [address] Performed By: #### 5 8410-2 #### [facility] CLIA [id number] [address] [place] [address] [place] MCV (RBC) [Entitic vol] 88.2 fL Normal 80.0-100.0 [facility] Comment on above: Order Comment: Speci men Type: BLOOD SPECIMEN Ordering Facility: [facility] Address: [address] [place] [address] Performed By: #### 5 8410-2 #### [facility] CLIA [id number] [address] [place] [address] [place] Nucleated RBC (Bld) [#/Vol] 10*3/uL Normal <0.01 [facility] Comment on above: Order Comment: Speci men Type: BLOOD SPECIMEN Ordering Facility: [facility] Address: [address] [place] [address] Performed By: #### 5 8410-2 #### [facility] CLIA [id number] [address] [place], [place] [address] [place] Platelet mean volume (Bld) [Entitic vol] 10.0 fL Normal 9.0-12.7 [facility] Comment on above: Order Comment: Speci men Type: BLOOD SPECIMEN Ordering Facility: [facility] Address: [address] [place] [address] Performed By: #### 5 8410-2 #### [facility] CLIA [id number] [address] [place] [address] [place] Platelets (Bld) [#/Vol] 337 10*3/uL Normal 150-400 [facility] Comment on above: Order Comment: Speci men Type: BLOOD SPECIMEN Ordering Facility: [facility] Address: [address] [place] [address] Performed By: #### 5 8410-2 #### [facility] CLIA [id number] [address] [place], [place] [address] [place] RBC (Bld) [#/Vol] 3.72 10*6/uL Low 3.90-5.20 [facility] Comment on above: Order Comment: Speci men Type: BLOOD SPECIMEN Ordering Facility: [facility] Address: [address] [place] [address] Performed By: #### 5 8410-2 #### [facility] CLIA [id number] [address] [place], [place] [address] [place] WBC (Bld) [#/Vol] 27.49 10*3/uL High 3.70-11.00 [facility] Comment on above: Order Comment: Speci men Type: BLOOD SPECIMEN Ordering Facility: [facility] Address: [address] [place] [address] Performed By: #### 5 8410-2 #### [facility] CLIA [id number] [address] [place] [address] [facility] [place] 03-16-2025 CNPN Telephone (INTMWS) -------- GRACIE BANULEOS ([id number]) 1965 F Date Time Provider Department 03/16/25 MISBAH ELKINS INTMWS During your visit today, we recorded the following information about you: Eva Martines RN 03/16/2025 1:22 PM Signed Patient's daughter calls and wanted provider aware that patient is currently at [facility] on a Ventilator. Daughter apologizes for forgetting to cancel appointment yesterday. Daughter states that mother was being put on a ventilator at that time. Eva Martines RN Allergies As of Date: 03/16/2025 Noted Allergy Reaction BACTRIM (SULFAMETHOXAZOLE-TRIMET H*11/28/2022 4 - Hives HYDROCODONE 08/02/2020 9 - [...] female [N39.3] (more content not included)... Normal [facility] CONSULT PROGon 03-16-2025 CONSULT PROG HNO ID: [id number] Author: DANIEL REYNA RPh Service: Pharmacy Author [...] contact pharmacy if there are questions. Daniel Reyna, [facility] CONSULT PROG HNO ID: [id number] Author: JOSE GUADALUPE GUZMAN Formerly [facility] Service: Pharmacy Author Type: Pharmacist Type: Consult [...] Levels: No results found for: FELTON Guzman, [facility] CT ABD/PEL W IVCONon 025 CT ABD/PEL W IVCON * * *Final Report* * * DATE OF EXAM: Mar 16 2025 1:50AM [facility] 0530 - CT ABD/PEL W IVCON [...] stent. * No other acute abdominopelvic process. Charge Entry: PSCB Transcribe Date/Time: Mar 16 2025 4:01A Dictated by : TRISH BAHENA MD This examination was interpreted and the report reviewed and electronically signed by: TRISH BAHENA MD on Mar 16 2025 4:21AM EST [id number] Normal [facility] CTA CHEST (NON GATED) W IVCO N PEon 03-16-2025 CTA CHEST (NON GATED) W IVCON PE * * *Final Report* * * DATE OF EXAM: Mar 16 2025 1:50AM [facility] 0564 - CTA CHEST (NON GATED) [...] to resolution, underlying lung nodules/mass not excluded. Charge Entry: BABATUNDE Transcribe Date/Time: Mar 16 2025 3:49A Dictated by : SUELLEN SÁNCHEZ MD This examination was interpreted and the report reviewed and electronically signed by: SUELLEN SÁNCHEZ MD on Mar 16 2025 4:00AM EST [id number] Normal [facility] Comprehensive metabolic 2000 panelon 03-16-2025 Albumin [Mass/Vol] 2.7 g/dL Low 3.2-5.0 [facility] Comment on above: Order Comment: Reggie fajardo Type: BLOOD SPECIMEN Ordering Facility: [facility] Address: [address] [place] [address] Performed By: #### 2 4323-8, 3040-3, 42220-8, 2776-1, 257-8 #### [facility] CLIA [id number] [address] [place] [address] [place] ALP [Catalytic activity/Vol] 143 U/L High 45-117 [facility] Comment on above: Order Comment: Speci men Type: BLOOD SPECIMEN Ordering Facility: [facility] Address: [address] [place] [address] Performed By: #### 2 4323-8, 3040-3, 78539-5, 2776-1, 257-8 #### [facility] CLIA [id number] [address] [place] [address] [place] ALT [Catalytic activity/Vol] 17 U/L Normal 13-61 [facility] Comment on above: Order Comment: Speci men Type: BLOOD SPECIMEN Ordering Facility: [facility] Address: [address] [place] [address] Result Comment: Resu lts may be falsely depressed after the administration of Sulfasalazine and/or Sulfapyridine. Performed By: #### 2 4323-8, 3040-3, 17965-3, 2776-1, 257-8 #### [facility] CLIA [id number] [address] [place], [place] [address] [place] Anion gap [Moles/Vol] 18 mmol/L High 5-16 [facility] Comment on above: Order Comment: Speci men Type: BLOOD SPECIMEN Ordering Facility: [facility] Address: [address] [place] [address] Performed By: #### 2 4323-8, 3040-3, 08387-0, 2776-1, 257-8 #### [facility] CLIA [id number] [address] [place], [place] [address] [place] AST [Catalytic activity/Vol] 13 U/L Normal 8-34 [facility] Comment on above: Order Comment: Speci men Type: BLOOD SPECIMEN Ordering Facility: [facility] Address: [address] [place] [address] Result Comment: Resu lts may be falsely depressed after the administration of Sulfasalazine and/or Sulfapyridine. Performed By: #### 2 4323-8, 3040-3, 39727-3, 2776-1, 8 #### [facility] CLIA [id number] [address] [place], [place] [address] [place] Bilirubin [Mass/Vol] 0.3 mg/dL Normal 0.2-1.0 [facility] Comment on above: Order Comment: Speci men Type: BLOOD SPECIMEN Ordering Facility: [facility] Address: [address] [place], [place] [address] Performed By: #### 2 4323-8, 3040-3, 47975-1, 277-1, 8 #### [facility] CLIA [id number] [address] [place], [place] [address] [place] Calcium [Mass/Vol] 9.3 mg/dL Normal 8.5-10.5 [facility] Comment on above: Order Comment: Speci men Type: BLOOD SPECIMEN Ordering Facility: [facility] Address: [address] [place] [address] Performed By: #### 2 4323-8, 3040-3, 02559-2, 2776-, 2571-04 #### [facility] CLIA [id number] [address] [place], [place] [address] [place] Chloride [Moles/Vol] 99 mmol/L Normal 98-107 [facility] Comment on above: Order Comment: Speci men Type: BLOOD SPECIMEN Ordering Facility: [facility] Address: [address] [place], [place] [address] Performed By: #### 2 4323-8, 3040-3, 46144-1, 2776-1, 8 #### [facility] CLIA [id number] [address] [place], [place] [address] [place] CO2 [Moles/Vol] 23 mmol/L Normal 21-32 [facility] Comment on above: Order Comment: Speci men Type: BLOOD SPECIMEN Ordering Facility: [facility] Address: [address] [place] [address] Performed By: #### 2 4323-8, 3040-3, 66367-0, 2777-1, 8 #### [facility] CLIA [id number] [address] [place] [address] [place] Creatinine [Mass/Vol] 0.93 mg/dL Normal 0.51-0.95 [facility] Comment on above: Order Comment: Reggie fajardo Type: BLOOD SPECIMEN Ordering Facility: [facility] Address: [address] [place] [address] Result Comment: Gretta ents receiving either N-Acetylcysteine (NAC) or Metamizole prior to venipuncture, may have falsely depressed results. Performed By: #### 2 4323-8, 3040-3, 87335-7, 2776-, 8 #### [facility] CLIA [id number] [address] [place] [address] [place] Creatinine and Glomerular filtration rate.predicted panel (S/P/Bld) 70 mL/min/1.73m??? Normal >=60 [facility] Comment on above: Order Comment: Reggie fajardo Type: BLOOD SPECIMEN Ordering Facility: [facility] Address: [address] [place] [address] Result Comment: Pavan mated Glomerular Filtration Rate [...] GFR. Performed By: #### 2 4323-8, 3040-3, 24981-9, 277-1, 8 #### [facility] CLIA [id number] [address] [place] [address] [place] Glucose [Mass/Vol] 175 mg/dL High 70-100 [facility] Comment on above: Order Comment: Reggie fajardo Type: BLOOD SPECIMEN Ordering Facility: [facility] Address: [address] [address] Result Comment: The [place] [employer] (ADA) provides guidance for cutoff [...] Standards of Medical Care in Diabetes 2016, [place] [employer]. Diabetes Care. 2016.39(Suppl 1). Results may be falsely elevated after the administration of Sulfapyridine. Results may be falsely depressed after the administration of Sulfasalazine. Performed By: #### 2 4323-8, 3040-3, 59625-2, 2777-1, 2570-8 #### [facility] CLIA [id number] [address] [place] [address] [place] Potassium [Moles/Vol] 3.9 mmol/L Normal 3.5-5.1 [facility] Comment on above: Order Comment: Reggie fajardo Type: BLOOD SPECIMEN Ordering Facility: [facility] Address: [address] [place], [place] [address] Performed By: #### 2 4323-8, 3040-3, 83099-2, 277-1, 2570-8 #### [facility] CLIA [id number] [address] [place] [address] [place] Protein [Mass/Vol] 6.6 g/dL Normal 6.0-8.5 [facility] Comment on above: Order Comment: Reggie fajardo Type: BLOOD SPECIMEN Ordering Facility: [facility] Address: [address] [place], [place] [address] Performed By: #### 2 4323-8, 3040-3, 53569-0, 2777-1, 2571-8 #### [facility] CLIA [id number] [address] [place], [place] [address] [place] Sodium [Moles/Vol] 140 mmol/L Normal 136-145 [facility] Comment on above: Order Comment: Speci men Type: BLOOD SPECIMEN Ordering Facility: [facility] Address: [address] [place] [address] Performed By: #### 2 4323-8, 3040-3, 38833-3, 2777-1, 2571-8 #### [facility] CLIA [id number] [address] [place] [address] [place] Urea nitrogen [Mass/Vol] 12 mg/dL Normal 7-26 [facility] Comment on above: Order Comment: Speci men Type: BLOOD SPECIMEN Ordering Facility: [facility] Address: [address] [place] [address] Performed By: #### 2 4323-8, 3040-3, 41608-0, 2777-1, 2571-8 #### [facility] CLIA [id number] [address] [place] [address] [place] Gas and Carbon monoxide pane l (BldV)on 03-16-2025 Base excess Calc (BldV) [Moles/Vol] 1 mmol/L Normal 0-2 [facility] Comment on above: Order Comment: Speci men Type: BLOOD SPECIMEN Ordering Facility: [facility] Address: [address] [place] [address] Performed By: #### 5 8410-2 #### [facility] CLIA [id number] [address] [place] [address] [place] Body temperature 100.94 [degF] Normal [facility] Comment on above: Order Comment: Speci men Type: BLOOD SPECIMEN Ordering Facility: [facility] Address: [address] [place] [address] Performed By: #### 5 8410-2 #### [facility] CLIA [id number] [address] [place] [address] [place] Calcium.ionized (Bld) [Mass/Vol] 1.14 mmol/L Normal 1.08-1.30 [facility] Comment on above: Order Comment: Speci men Type: BLOOD SPECIMEN Ordering Facility: [facility] Address: [address] [place] [address] Performed By: #### 5 8410-2 #### [facility] CLIA [id number] [address] [place] [address] [place] Carboxyhemoglobin (BldV) [Mass fraction] 1.0 % Normal 0.0-2.0 [facility] Comment on above: Order Comment: Speci men Type: BLOOD SPECIMEN Ordering Facility: [facility] Address: [address] [place] [address] Result Comment: Carb oxyhemoglobin Reference Range for Smokers: 2.0-8.0% Performed By: #### 5 8410-2 #### [facility] CLIA [id number] [address] [place] [address] [place] CO2 (BldV) [Partial pressure] 47 mm[Hg] Normal 42-55 [facility] Comment on above: Order Comment: Speci men Type: BLOOD SPECIMEN Ordering Facility: [facility] Address: [address] [place] [address] Performed By: #### 5 8410-2 #### [facility] CLIA [id number] [address] [place] [address] [place] CO2 adjusted to patient's actual temperature (BldV) [Partial pressure] Normal [facility] Comment on above: Order Comment: Speci men Type: BLOOD SPECIMEN Ordering Facility: [facility] Address: [address] [place] [address] Performed By: #### 5 8410-2 #### [facility] CLIA [id number] [address] [place] [address] [place] Glucose [Mass/Vol] 190 mg/dL High 60-105 [facility] Comment on above: Order Comment: Speci men Type: BLOOD SPECIMEN Ordering Facility: [facility] Address: [address] [place] [address] Performed By: #### 5 8410-2 #### [facility] CLIA [id number] [address] [place] [address] [place] HCO3 (Bld) [Moles/Vol] 26 mmol/L Normal 24-28 [facility] Comment on above: Order Comment: Speci men Type: BLOOD SPECIMEN Ordering Facility: [facility] Address: [address] [place] [address] Performed By: #### 5 8410-2 #### [facility] IA [id number] [address] [place] [address] [place] Hemoglobin (Bld) [Mass/Vol] 11.5 g/dL Normal 11.5-15.5 [facility] Comment on above: Order Comment: Speci men Type: BLOOD SPECIMEN Ordering Facility: [facility] Address: [address] [place] [address] Performed By: #### 5 8410-2 #### [facility] IA [id number] [address] [place] [address] [place] Lactate [Moles/Vol] 2.5 mmol/L High 0.5-2.2 [facility] Comment on above: Order Comment: Speci men Type: BLOOD SPECIMEN Ordering Facility: [facility] Address: [address] [place] [address] Performed By: #### 5 8410-2 #### [facility] IA [id number] [address] [place] [address] [place] Methemoglobin (Bld) [Mass fraction] 0.1 % Normal 0.0-1.5 [facility] Comment on above: Order Comment: Speci men Type: BLOOD SPECIMEN Ordering Facility: [facility] Address: [address] [place] [address] Performed By: #### 5 8410-2 #### [facility] IA [id number] [address] [place] [address] [place] O2 THERAPY VENT=Ventilator Normal [facility] Comment on above: Order Comment: Speci men Type: BLOOD SPECIMEN Ordering Facility: [facility] Address: [address] [place] [address] Performed By: #### 5 8410-2 #### [facility] CLIA [id number] [address] [place], [place] [address] [place] Oxygen (BldV) [Partial pressure] 33 mm[Hg] Low 35-45 [facility] Comment on above: Order Comment: Speci men Type: BLOOD SPECIMEN Ordering Facility: [facility] Address: [address] [place] [address] Performed By: #### 5 8410-2 #### [facility] CLIA [id number] [address] [place] [address] [place] Oxygen adjusted to patient's actual temperature (BldV) [Partial pressure] Normal [facility] Comment on above: Order Comment: Speci men Type: BLOOD SPECIMEN Ordering Facility: [facility] Address: [address] [place] [address] Performed By: #### 5 8410-2 #### [facility] CLIA [id number] [address] [place] [address] [place] Oxyhemoglobin (BldV) [Mass fraction] 60 % Normal 4-98 [facility] Comment on above: Order Comment: Speci men Type: BLOOD SPECIMEN Ordering Facility: [facility] Address: [address] [place] [address] Performed By: #### 5 8410-2 #### [facility] CLIA [id number] [address] [place], [place] [address] [place] pH (BldV) 7.37 [pH] Normal 7.32-7.42 [facility] Comment on above: Order Comment: Speci men Type: BLOOD SPECIMEN Ordering Facility: [facility] Address: [address] [place] [address] Performed By: #### 5 8410-2 #### [facility] CLIA [id number] [address] [place], [place] [address] [place] pH adjusted to patient's actual temperature (BldV) Normal [facility] Comment on above: Order Comment: Speci men Type: BLOOD SPECIMEN Ordering Facility: [facility] Address: [address] [place] [address] Performed By: #### 5 8410-2 #### [facility] CLIA [id number] [address] [place], [place] [address] [place] Potassium [Moles/Vol] 3.5 mmol/L Normal 2.5-6.0 [facility] Comment on above: Order Comment: Speci men Type: BLOOD SPECIMEN Ordering Facility: [facility] Address: [address] [place] [address] Performed By: #### 5 8410-2 #### [facility] CLIA [id number] [address] [place] [address] [place] Sodium [Moles/Vol] 139 mmol/L Normal 136-144 [facility] Comment on above: Order Comment: Speci men Type: BLOOD SPECIMEN Ordering Facility: [facility] Address: [address] [place] [address] Performed By: #### 5 8410-2 #### [facility] IA [id number] [address] [place] [address] [place] Gram Stainon 03-16-2025 GS Gram Stain 3+ Gram positive diplococci 2+ White Blood Cells No Epithelial cells Normal [facility] Comment on above: Performed By: #### M 100.2000, M100.2400 ####[facility] [address] [facility] [place], [address] Legionella Ag Ur Qlon 2024 Legionella sp Ag Ql (U) Negative Normal Negative [facility] Comment on above: Order Comment: Speci men Type: ARTERIAL BLOOD SPECIMEN Ordering Facility: [facility] Address: [address] [place], [place] [address] Performed By: #### A LLBG #### [facility] CLIA [id number] [address] [place], [place] [address] [place] Lipase SerPl-cCncon 03-16-20 25 Lipase [Catalytic activity/Vol] 51 U/L Normal 12-60 [facility] Comment on above: Order Comment: Speci men Type: BLOOD SPECIMEN Ordering Facility: [facility] Address: [address] [facility] [place] [address] Performed By: #### 2 4323-8, 3040-3, 87657-3, 2777-1, 8 #### [facility] CLIA [id number] [address] [place], [place] [address] [facility] Magnesium SerPl-mCncon 03-16 Magnesium [Mass/Vol] 1.1 mg/dL Low 1.6-2.6 [facility] Comment on above: Order Comment: Reggie tana Type: BLOOD SPECIMEN Ordering Facility: [facility] Address: [address] [place] [address] Performed By: #### 2 4323-8, 3040-3, 62924-1, 2777-1, 2578 #### [facility] CLIA [id number] [address] [place], [place] [address] [facility] [place] NUTRITIONon 03-16-2025 NUTRITION HNO ID: [id number] Author: GABE MILAN RD Service: Nutrition Therapy [...] Stage 3 severe COPD by GOLD classification ([facility]) 2018 Tobacco use greater than 30 years Unspecified hemorrhoids without mention of complication Urine, incontinence, stress female 11/24/2014 Intake History: Nutrition Intake Prior to Admission: Unable to determine Current Nutrition Intake: NPO Current Intake Over time: (1 day LOS) Dosing Weight: 60.8 kg (134 lb) Dosing Weight Type: Current weight Estimated kilocalorie needs: 5123-7548 Calorie Calculation Method: 25-30 kcals/kg Estimated protein [...] March 16, 2025 TIME: 3:44 PM Normal [facility] PT panel Coag (PPP)on 2024 INR Coag (PPP) [Relative time] 1.1 {INR} Normal 0.9-1.3 [facility] Comment on above: Order Comment: Speci men Type: BLOOD SPECIMEN Ordering Facility: [facility] Address: [address] [place] [address] Result Comment: Zandra min K Antagonist (VKA) Therapeutic Range: INR 2 to 3 (Target INR of 2.5) Note: For patients treated with VKA drugs, such as warfarin, the [place] [employer] 2012 Guideline recommends [...] Chest 2012, 141:7S-47S Alessandro RA, et al. [facility] 2017, 70: 252-289 Performed By: #### 3 4528-0, 04488-3 #### [facility] CLIA [id number] [address] [place], [place] [address] [place] PT Coag (PPP) [Time] 12.1 s Normal 9.7-13.0 [facility] Comment on above: Order Comment: Reggie fajardo Type: BLOOD SPECIMEN Ordering Facility: [facility] Address: [address] [place] [address] Performed By: #### 3 4528-0, 94462-7 #### [facility] CLIA [id number] [address] [place], [place] [address] [place] Phosphate SerPl-mCncon 03-16 Phosphate [Mass/Vol] 2.9 mg/dL Normal 2.5-4.9 [facility] Comment on above: Order Comment: Reggie fajardo Type: ARTERIAL BLOOD SPECIMEN Ordering Facility: [facility] Address: [address] [place] [address] Result Comment: Elev ated m-protein (paraprotein) levels in the serum may be exhibited in patients with monoclonal gammopathies, causing falsely elevated inorganic phosphorus results. Performed By: #### A LLBG #### [facility] CLIA [id number] [address] [place] [address] [place] Procalcitonin SerPl-mCncon 0 03-16-2025 Procalcitonin [Mass/Vol] 0.68 ng/mL High 0.00-0.50 [facility] Comment on above: Order Comment: Reggie fajardo Type: ARTERIAL BLOOD SPECIMEN Ordering Facility: [facility] Address: [address] [place] [address] Result Comment: PCT Concentration Interpretation PCT <=0.1 [...] shock. Performed By: #### A LLBG #### [facility] CLIA [id number] [address] [place] [address] [place] SEPSIS LACTATE W/ REFLEX (IN ITIAL)on 03-16-2025 Lactate [Moles/Vol] 1.3 mmol/L Normal 0.4-2.0 [facility] Comment on above: Order Comment: Speci men Type: BLOOD SPECIMEN Ordering Facility: [facility] Address: [address] [place] [address] Performed By: #### S LACTR #### [facility] CLIA [id number] [address] [place] [address] [place] STAPHYLOCOCCUS AUREUS AND MR SA SCREEN, PCR, NASALon 03-16-2025 S. aureus and MRSA panel KANDY+probe (Nose) Methicillin-SUSCEPTIBLE Staphylococcus aureus Detected Abnormal Not Detected [facility] Comment on above: Order Comment: Speci men Type: BLOOD SPECIMEN Ordering Facility: [facility] Address: [address] [place] [address] Performed By: #### 5 8410-2 #### [facility] CLIA [id number] [address] [place] [address] [place] STREPTOCOCCUS PNEUMONIAE ANT IGEN URINEon 03-16-2025 STREPTOCOCCUS PNEUMONIAE ANTIGEN URINE STREP PNEUMO AG RESULT: Negative for Streptococcus pneumoniae antigen. Presumptive negative for pneumococcal pneumonia, suggesting no current or recent pneumococcal infection. Infection due to S.pneumoniae cannot be ruled out since the antigen present in the sample may be below the detection limit of the test. Normal [facility] Comment on above: Performed By: #### A LLBG #### [facility] CLIA [id number] [address] [place] [address] [place] Trigl SerPl-mCncon Triglyceride [Mass/Vol] 159 mg/dL High 30-149 [facility] Comment on above: Order Comment: Reggie fajardo Type: ARTERIAL BLOOD SPECIMEN Ordering Facility: [facility] Address: [address] [place] [address] Result Comment: <150 mg/dL, Normal 150-199 mg/dL, Borderline high 200-499 mg/dL, High >499 mg/dL, Very high Reference: 1. National Cholesterol Education Program ATP III Guideline At-A-Glance Quick Desk Reference: National Heart, Lung, and Blood [place]. National Institutes of Health. 2001: NIH Publication No. 01-3305. Patients receiving either N-Acetylcysteine (NAC) or Metamizole prior to venipuncture, may have falsely depressed results. Performed By: #### A LLBG #### [facility] CLIA [id number] [address] [place] [address] Triglyceride [Mass/Vol]on FASTING TIME Not none Normal [facility] Comment on above: Order Comment: Reggie fajardo Type: ARTERIAL BLOOD SPECIMEN Ordering Facility: [facility] Address: [address] [place] [address] Performed By: #### A LLBG #### [facility] CLIA [id number] [address] [place] [address] Urinalysis complete panel (U )on 03-16-2025 Bacteria LM.HPF (Urine sed) [#/Area] Rare Abnormal None Seen [facility] Comment on above: Order Comment: Reggie fajardo Type: ARTERIAL BLOOD SPECIMEN Ordering Facility: [facility] Address: [address] [place] [address] Performed By: #### A LLBG #### [facility] CLIA [id number] [address] [place] [address] Bilirubin Ql (U) Negative Normal Negative [facility] Comment on above: Order Comment: Reggie fajardo Type: ARTERIAL BLOOD SPECIMEN Ordering Facility: [facility] Address: [address] [place] [address] Performed By: #### A LLBG #### [facility] CLIA [id number] [address] [place] [address] Clarity (Unsp spec) Clear Normal Clear [facility] Comment on above: Order Comment: Speci men Type: ARTERIAL BLOOD SPECIMEN Ordering Facility: [facility] Address: [address] [place] [address] Performed By: #### A LLBG #### [facility] CLIA [id number] [address] [place] [address] [place] Color (U) Colorless Normal Yellow [facility] Comment on above: Order Comment: Speci men Type: ARTERIAL BLOOD SPECIMEN Ordering Facility: [facility] Address: [address] [place] [address] Performed By: #### A LLBG #### [facility] CLIA [id number] [address] [place] [address] Epithelial cells LM.HPF (Urine sed) [#/Area] None Seen Normal [facility] Comment on above: Order Comment: Speci men Type: ARTERIAL BLOOD SPECIMEN Ordering Facility: [facility] Address: [address] [place] [address] Performed By: #### A LLBG #### [facility] CLIA [id number] [address] [place] [address] [place] Glucose Test strip (U) [Mass/Vol] 1+ Abnormal Negative [facility] Comment on above: Order Comment: Speci men Type: ARTERIAL BLOOD SPECIMEN Ordering Facility: [facility] Address: [address] [place] [address] Performed By: #### A LLBG #### [facility] CLIA [id number] [address] [place] [address] [place] Hemoglobin Ql (U) 1+ Abnormal Negative [facility] Comment on above: Order Comment: Speci men Type: ARTERIAL BLOOD SPECIMEN Ordering Facility: [facility] Address: [address] [place] [address] Performed By: #### A LLBG #### [facility] CLIA [id number] [address] [place] [address] [place] Ketones Ql (U) 1+ Abnormal Negative [facility] Comment on above: Order Comment: Speci men Type: ARTERIAL BLOOD SPECIMEN Ordering Facility: [facility] Address: [address] [place] [address] Performed By: #### A LLBG #### [facility] CLIA [id number] [address] [place] [address] [place] Leukocyte esterase Test strip Ql (U) Negative Normal Negative [facility] Comment on above: Order Comment: Speci men Type: ARTERIAL BLOOD SPECIMEN Ordering Facility: [facility] Address: [address] [place] [address] Performed By: #### A LLBG #### [facility] CLIA [id number] [address] [place] [address] [place] Nitrite Ql (U) Negative Normal Negative [facility] Comment on above: Order Comment: Speci men Type: ARTERIAL BLOOD SPECIMEN Ordering Facility: [facility] Address: [address] [place] [address] Performed By: #### A LLBG #### [facility] CLIA [id number] [address] [place] [address] [place] pH (U) 6.0 [pH] Normal 5.0-8.0 [facility] Comment on above: Order Comment: Speci men Type: ARTERIAL BLOOD SPECIMEN Ordering Facility: [facility] Address: [address] [place] [address] Performed By: #### A LLBG #### [facility] CLIA [id number] [address] [place] [address] [place] Protein (U) [Mass/Vol] Negative Normal Negative [facility] Comment on above: Order Comment: Speci men Type: ARTERIAL BLOOD SPECIMEN Ordering Facility: [facility] Address: [address] [place] [address] Performed By: #### A LLBG #### [facility] CLIA [id number] [address] [place] [address] [place] RBC LM.HPF (Urine sed) [#/Area] 0-3 /HPF Normal 0-3 /HPF [facility] Comment on above: Order Comment: Speci men Type: ARTERIAL BLOOD SPECIMEN Ordering Facility: [facility] Address: [address] [place] [address] Performed By: #### A LLBG #### [facility] CLIA [id number] [address] [place] [address] Specific gravity (U) [Rel density] 1.026 Normal 1.005-1.030 [facility] Comment on above: Order Comment: Speci men Type: ARTERIAL BLOOD SPECIMEN Ordering Facility: [facility] Address: [address] [place] [address] Performed By: #### A LLBG #### [facility] CLIA [id number] [address] [place] [address] [place] Urobilinogen Ql (U) Negative Normal Negative [facility] Comment on above: Order Comment: Speci men Type: ARTERIAL BLOOD SPECIMEN Ordering Facility: [facility] Address: [address] [place] [address] Performed By: #### A LLBG #### [facility] CLIA [id number] [address] [place] [address] [place] WBC LM.HPF (Urine sed) [#/Area] 0-5 /HPF Normal 0-5 /HPF [facility] Comment on above: Order Comment: Speci men Type: ARTERIAL BLOOD SPECIMEN Ordering Facility: [facility] Address: [address] [place] [address] Performed By: #### A LLBG #### [facility] CLIA [id number] [address] [place] [address] [place] XR CHEST 1V FRONTAL [...] change in the appearance of the chest. Charge Entry: BABATUNDE Transcribe Date/Time: Mar 16 2025 2:26P Dictated by : JOSE GUADALUPE MOROCHO MD This examination was interpreted and the report reviewed and electronically signed by: JOSE GUADALUPE MOROCHO MD on Mar 16 2025 2:30PM EST [id number] Normal [facility] aPTT PPPon 03-16-2025 aPTT Coag (PPP) [Time] 26.3 s Normal 23.0-32.4 [facility] Comment on above: Order Comment: Speci men Type: BLOOD SPECIMEN Ordering Facility: [facility] Address: [address] [place] [address] Performed By: #### 3 4528-0, 86136-1 #### [facility] CLIA [id number] [address] [place] [address] OF [facility] ALLIED HEALTHon 03-15-2025 ALLIED HEALTH HNO ID: [id number] Author: YOAN CHOUDHARY RT(R) Service: ? Author Type: Signals Collector/Analyst Type: Allied Health Filed: 03/15/2025 23:51 Note Text: -------- Summary: xray -------- Radiology Service Progress Note PATIENT NAME: Gracie [...] PATIENT PRESENTS WITH AN IMPLANTABLE OR ATTACHED HORTICULTURAL MANAGER: No RADIOLOGY DEPARTMENT: General X-ray: Exam(s) Completed: Chest X-Ray Abdomen X-Ray: Abdomen PERIPHERAL IV DATA: Not applicable SIGNED BY: RT Qiana(R) March 15, 2025 11:51 PM [facility] Absolute lymphocyte countOrd ered By: Sudhir Izquierdo on 03-15-2025 Lymphocytes Auto (Unsp spec) [#/Vol] 1.20 10*3/uL 0.83-4.51 [facility] Anion gap in Serum or Plasma Ordered By: Sudhir Izquierdo on 03-15-2025 Anion gap [Moles/Vol] 14 mmol/L 5-15 [facility] Assessment of wrist artery p atency prior to arterial punctureOrdered By: Sudhir Izquierdo on 03-15-2025 Arterial patency Wrist artery --pre arterial puncture Positive [facility] Automated lymphocyte count a s percentage of total leukocytesOrdered By: Sudhir Izquierdo on 03-15-2025 Lymphocytes/100 WBC Auto (Unsp spec) 5.8 % Low 19-41 [facility] BUN/creatinine ratioOrdered By: Sudhir Izquierdo on 03-15-2025 Urea nitrogen/Creatinine [Mass ratio] 15.6 mg/mg 10-20 [facility] Basophil percentageOrdered B y: Sudhir Izquierdo on 03-15-2025 Basophils/100 WBC (Bld) 0.4 % 0-1 [facility] Bilirubin, totalOrdered By: Sudhir Izquierdo on 03-15-2025 Bilirubin [Mass/Vol] 0.24 mg/dL 0.00-1.30 [facility] Blood Gases by CPSon 025 SERGEI TEST Positive Normal [facility] Comment on above: Performed By: #### L 9000.0800 ####[facility] [address] [place], [address] Base excess Calc (Bld) [Moles/Vol] 0 mmol/L Normal -2 to +2 [facility] Comment on above: Performed By: #### L 9000.0800 ####[facility] [address] [place], [address] Blood Gas Type ART Normal [facility] Comment on above: Performed By: #### L 9000.0800 ####[facility] [address] [place], [address] CO2 [Moles/Vol] 29 mmol/L Normal [facility] Comment on above: Performed By: #### L 9000.0800 ####[facility] [address] [place], [address] FI02 90.0 Normal [facility] Comment on above: Performed By: #### L 9000.0800 ####[facility] [address] [place], [address] HCO3 (Bld) [Moles/Vol] 26.8 mmol/L High 22-26 [facility] Comment on above: Performed By: #### L 9000.0800 ####[facility] [address] [place], [address] Mode AC Normal [facility] Comment on above: Performed By: #### L 9000.0800 ####[facility] [address] [place], [address] O2 Delivery Dev ET Tube Normal [facility] Comment on above: Performed By: #### L 9000.0800 ####[facility] [address] [place], [address] pCO2 59.5 mmHg High 35-45 [facility] Comment on above: Performed By: #### L 9000.0800 ####[facility] [address] [place], [address] PEEP 12 Normal [facility] Comment on above: Performed By: #### L 9000.0800 ####[facility] [address] [place], [address] pH (Bld) 7.26 [pH] Low 7.35-7.45 [facility] Comment on above: Performed By: #### L 9000.0800 ####[facility] [address] [place], [address] PO2 75 mmHG Normal 75-100 [facility] Comment on above: Performed By: #### L 9000.0800 ####[facility] [address] [place], [address] RR 16 Normal [facility] Comment on above: Performed By: #### L 9000.0800 ####[facility] [address] [place], [address] SITE R Radial Normal [facility] Comment on above: Performed By: #### L 9000.0800 ####[facility] [address] [place], [address] SO2 92 Low 95-99 [facility] Comment on above: Performed By: #### L 9000.0800 ####[facility] [address] [place], [address] Vt 450.0 mL Normal [facility] Comment on above: Performed By: #### L 8999.0800 ####[facility] [address] [place], [address] Base excess Calc (Bld) [Moles/Vol] 1 mmol/L Normal -2 to +2 [facility] Comment on above: Performed By: #### L 8999.0800 ####[facility] [address] [place], [address] Blood Gas Type ART Normal [facility] Comment on above: Performed By: #### L 8999.0800 ####[facility] [address] [place], [address] CO2 [Moles/Vol] 32 mmol/L Normal [facility] Comment on above: Performed By: #### L 8999.0800 ####[facility] [address] [place], [address] FI02 100.0 Normal [facility] Comment on above: Performed By: #### L 8999.0800 ####[facility] [address] [place], [address] HCO3 (Bld) [Moles/Vol] 29.3 mmol/L High 22-26 [facility] Comment on above: Performed By: #### L 8999.0800 ####[facility] [address] [place], [address] Mode AC Normal [facility] Comment on above: Performed By: #### L 8999.0800 ####[facility] [address] [place], [address] O2 Delivery Dev Adult Vent Normal [facility] Comment on above: Performed By: #### L 0.0800 ####[facility] [address] [place], [address] pCO2 77.2 mmHg Invalid Interpretation Code 35-45 [facility] Comment on above: Performed By: #### L 9000.0800 ####[facility] [address] [place], [address] PEEP 12 Normal [facility] Comment on above: Performed By: #### L 9000.0800 ####[facility] [address] [place], [address] pH (Bld) 7.19 [pH] Invalid Interpretation Code 7.35-7.45 [facility] Comment on above: Performed By: #### L 9000.0800 ####[facility] [address] [place], [address] PO2 49 mmHG Low 75-100 [facility] Comment on above: Performed By: #### L 9000.0800 ####[facility] [address] [place], [address] Read Back By Yes [facility] Comment on above: Performed By: #### L 9000.0800 ####[facility] [address] [place], [address] Results To BROWN [facility] Comment on above: Performed By: #### L 9000.0800 ####[facility] [address] [place], [address] RR 16 Normal [facility] Comment on above: Performed By: #### L 9000.0800 ####[facility] [address] [place], [address] SITE R Brach Normal [facility] Comment on above: Performed By: #### L 9000.0800 ####[facility] [address] [place], [address] SO2 72 Low 95-99 [facility] Comment on above: Performed By: #### L 9000.0800 ####[facility] [address] [place], [address] Time Given 17:53:45 Normal [facility] Comment on above: Performed By: #### L 9000.0800 ####[facility] [address] [place], [address] Vt 400.0 mL Normal [facility] Comment on above: Performed By: #### L 9000.0800 ####[facility] [address] [place], [address] Base excess Calc (Bld) [Moles/Vol] -1 mmol/L Normal -2 to +2 [facility] Comment on above: Performed By: #### L 9000.0800 ####[facility] [address] [place], [address] Blood Gas Type ART Normal [facility] Comment on above: Performed By: #### L 9000.0800 ####[facility] [address] [place], [address] CO2 [Moles/Vol] 31 mmol/L Normal [facility] Comment on above: Performed By: #### L 9000.0800 ####[facility] [address] [place], [address] FI02 100.0 Normal [facility] Comment on above: Performed By: #### L 9000.0800 ####[facility] [address] [place], [address] HCO3 (Bld) [Moles/Vol] 28.5 mmol/L High 22-26 [facility] Comment on above: Performed By: #### L 9000.0800 ####[facility] [address] [place], [address] Mode Not entered [facility] Comment on above: Performed By: #### L 9000.0800 ####[facility] [address] [place], [address] O2 Delivery Dev BiPAP [facility] Comment on above: Performed By: #### L 9000.0800 ####[facility] [address] [place], [address] pCO2 83.5 mmHg Invalid Interpretation Code 35-45 [facility] Comment on above: Performed By: #### L 9000.0800 ####[facility] [address] [place], [address] PEEP 10 Normal [facility] Comment on above: Performed By: #### L 9000.0800 ####[facility] [address] [place], [address] pH (Bld) 7.14 [pH] Invalid Interpretation Code 7.35-7.45 [facility] Comment on above: Performed By: #### L 9000.0800 ####[facility] [address] [place], [address] PO2 74 mmHG Low 75-100 [facility] Comment on above: Performed By: #### L 9000.0800 ####[facility] [address] [place], [address] Read Back By Yes [facility] Comment on above: Performed By: #### L 9000.0800 ####[facility] [address] [place], [address] Results To BROWN [facility] Comment on above: Performed By: #### L 9000.0800 ####[facility] [address] [place], [address] RR 16 [facility] Comment on above: Performed By: #### L 9000.0800 ####[facility] [address] [place], [address] SITE R Brach Normal [facility] Comment on above: Performed By: #### L 8999.08 ####[facility] [address] [place], [address] SO2 88 Low 95-99 [facility] Comment on above: Performed By: #### L 8999.0800 ####[facility] [address] [place], [address] Time Given 15:53:31 Normal [facility] Comment on above: Performed By: #### L 8999.0800 ####[facility] [address] [place], [address] Vt 450.0 mL Normal [facility] Comment on above: Performed By: #### L 8999.0800 ####[facility] [address] [place], [address] Base excess Calc (Bld) [Moles/Vol] 0 mmol/L Normal -2 to +2 [facility] Comment on above: Performed By: #### L 8999.08 ####[facility] [address] [place], [address] Blood Gas Type ART Normal [facility] Comment on above: Performed By: #### L 8999.0800 ####[facility] [address] [place], [address] CO2 [Moles/Vol] 31 mmol/L Normal [facility] Comment on above: Performed By: #### L 8999.0800 ####[facility] [address] [place], [address] FI02 100.0 Normal [facility] Comment on above: Performed By: #### L 8999.0800 ####[facility] [address] [place], [address] HCO3 (Bld) [Moles/Vol] 28.9 mmol/L High 22-26 [facility] Comment on above: Performed By: #### L 8999.08 ####[facility] [address] [place], [address] Mode BiLevel Normal [facility] Comment on above: Performed By: #### L 8999.0800 ####[facility] [address] [place], [address] O2 Delivery Dev BiPAP Normal [facility] Comment on above: Performed By: #### L 8999.0800 ####[facility] [address] [place], [address] pCO2 79.1 mmHg Invalid Interpretation Code 35-45 [facility] Comment on above: Performed By: #### L 8999.0800 ####[facility] [address] [place], [address] PEEP 10 Normal [facility] Comment on above: Performed By: #### L 8999.0800 ####[facility] [address] [place], [address] pH (Bld) 7.17 [pH] Invalid Interpretation Code 7.35-7.45 [facility] Comment on above: Performed By: #### L 8999.0800 ####[facility] [address] [place], [address] PO2 81 mmHG Normal 75-100 [facility] Comment on above: Performed By: #### L 8999.0800 ####[facility] [address] [place], [address] Read Back By Yes Normal [facility] Comment on above: Performed By: #### L 8999.0800 ####[facility] [address] [place], [address] Results To BROWN Normal [facility] Comment on above: Performed By: #### L 9000.0800 ####[facility] [address] [place], [address] RR 16 Normal [facility] Comment on above: Performed By: #### L 9000.0800 ####[facility] [address] [place], [address] SITE R Brach Normal [facility] Comment on above: Performed By: #### L 9000.0800 ####[facility] [address] [place], [address] SO2 92 Low 95-99 [facility] Comment on above: Performed By: #### L 9000.0800 ####[facility] [address] [place], [address] Time Given 10:48:00 [facility] Comment on above: Performed By: #### L 9000.0800 ####[facility] [address] [place], [address] Vt 450.0 mL [facility] Comment on above: Performed By: #### L 9000.0800 ####[facility] [address] [place], [address] SERGEI TEST Positive Normal [facility] Comment on above: Performed By: #### L 9000.0800 ####[facility] [address] [place], [address] Base excess Calc (Bld) [Moles/Vol] -3 mmol/L Low -2 to +2 [facility] Comment on above: Performed By: #### L 9000.0800 ####[facility] [address] [place], [address] Blood Gas Type ART Normal [facility] Comment on above: Performed By: #### L 9000.0800 ####[facility] [address] [place], [address] CO2 [Moles/Vol] 28 mmol/L Normal [facility] Comment on above: Performed By: #### L 9000.0800 ####[facility] [address] [place], [address] FI02 100.0 Normal [facility] Comment on above: Performed By: #### L 9000.0800 ####[facility] [address] [place], [address] HCO3 (Bld) [Moles/Vol] 26.1 mmol/L High 22-26 [facility] Comment on above: Performed By: #### L 9000.0800 ####[facility] [address] [place], [address] Mode avaps Normal [facility] Comment on above: Performed By: #### L 9000.0800 ####[facility] [address] [place], [address] O2 Delivery Dev BiPAP Normal [facility] Comment on above: Performed By: #### L 9000.0800 ####[facility] [address] [place], [address] pCO2 75.9 mmHg Invalid Interpretation Code 35-45 [facility] Comment on above: Performed By: #### L 9000.0800 ####[facility] [address] [place], [address] PEEP 10 Normal [facility] Comment on above: Performed By: #### L 9000.0800 ####[facility] [address] [place], [address] pH (Bld) 7.14 [pH] Invalid Interpretation Code 7.35-7.45 [facility] Comment on above: Performed By: #### L 9000.0800 ####[facility] [address] [place], [address] PO2 85 mmHG Normal 75-100 [facility] Comment on above: Performed By: #### L 9000.0800 ####[facility] [address] [place], [address] Read Back By Yes Normal [facility] Comment on above: Performed By: #### L 9000.0800 ####[facility] [address] [place], [address] Results To de dustin [facility] Comment on above: Performed By: #### L 9000.0800 ####[facility] [address] [place], [address] RR 16 Normal [facility] Comment on above: Performed By: #### L 9000.0800 ####[facility] [address] [place], [address] SITE R Radial Normal [facility] Comment on above: Performed By: #### L 9000.0800 ####[facility] [address] [place], [address] SO2 92 Low 95-99 [facility] Comment on above: Performed By: #### L 9000.0800 ####[facility] [address] [place], [address] Time Given 07:33:57 [facility] Comment on above: Performed By: #### L 9000.0800 ####[facility] [address] [place], [address] Vt 450.0 mL [facility] Comment on above: Performed By: #### L 9000.0800 ####[facility] [address] [place], [address] SERGEI TEST N/A Normal [facility] Comment on above: Performed By: #### L 0.0800 ####[facility] [address] [place], [address] Base excess Calc (Bld) [Moles/Vol] -3 mmol/L Low -2 to +2 [facility] Comment on above: Performed By: #### L 8999.0800 ####[facility] [address] [place], [address] Blood Gas Type ART Normal [facility] Comment on above: Performed By: #### L 8999.0800 ####[facility] [address] [place], [address] CO2 [Moles/Vol] 28 mmol/L Normal [facility] Comment on above: Performed By: #### L 8999.0800 ####[facility] [address] [place], [address] FI02 92.0 Normal [facility] Comment on above: Performed By: #### L 8999.0800 ####[facility] [address] [place], [address] HCO3 (Bld) [Moles/Vol] 25.8 mmol/L Normal 22-26 [facility] Comment on above: Performed By: #### L 8999.0800 ####[facility] [address] [place], [address] Mode 60L Normal [facility] Comment on above: Performed By: #### L 8999.0800 ####[facility] [address] [place], [address] O2 Delivery Dev AIRVO Normal [facility] Comment on above: Performed By: #### L 8999.0800 ####[facility] [address] [place], [address] pCO2 71.3 mmHg Invalid Interpretation Code 35-45 [facility] Comment on above: Performed By: #### L 9000.0800 ####[facility] [address] [place], [address] pH (Bld) 7.17 [pH] Invalid Interpretation Code 7.35-7.45 [facility] Comment on above: Performed By: #### L 9000.0800 ####[facility] [address] [place], [address] PO2 67 mmHG Low 75-100 [facility] Comment on above: Performed By: #### L 9000.0800 ####[facility] [address] [place], [address] Read Back By Yes [facility] Comment on above: Performed By: #### L 9000.0800 ####[facility] [address] [place], [address] Monk [facility] Comment on above: Performed By: #### L 9000.0800 ####[facility] [address] [place], [address] SITE R Brach Normal [facility] Comment on above: Performed By: #### L 9000.0800 ####[facility] [address] [place], [address] SO2 86 Low 95-99 [facility] Comment on above: Performed By: #### L 9000.0800 ####[facility] [address] [place], [address] Time Given 06:03:13 [facility] Comment on above: Performed By: #### L 9000.0800 ####[facility] [address] [place], [address] Blood base excess determinat ionOrdered By: Sudhir Izquierdo on 03-15-2025 Base excess Calc (BldV) [Moles/Vol] 0 mmol/L -2-2 [facility] Blood bicarbonate measuremen tOrdered By: Sudhir Izquierdo on 03-15-2025 HCO3 (Bld) [Moles/Vol] 26.8 mmol/L High 22-26 [facility] CBC W/Diff, Automatedon 02-26 Absolute Lymph 1.20 X10 3/uL Normal 0.83-4.51 [facility] Comment on above: Performed By: #### L 500.4050, L100.0100 ####[facility] [address] [place], [address] Absolute Neut 17.4 X10 3/uL High 2.0-7.7 [facility] Comment on above: Performed By: #### L 500.4050, L100.0100 ####[facility] [address] [place], [address] Basophils/100 WBC (Bld) 0.4 % Normal 0-1 [facility] Comment on above: Performed By: #### L 500.4050, L100.0100 ####[facility] [address] [place], [address] Eosinophils/100 WBC (Bld) 0.3 % Normal 0-5 [facility] Comment on above: Performed By: #### L 500.4050, L100.0100 ####[facility] [address] [place], [address] Erythrocyte distribution width (RBC) [Ratio] 14.6 % Normal 11.6-14.6 [facility] Comment on above: Performed By: #### L 500.4050, L100.0100 ####[facility] [address] [place], [address] Hematocrit (Bld) [Volume fraction] 37.1 % Normal 37-47 [facility] Comment on above: Performed By: #### L 500.4050, L100.0100 ####[facility] [address] [place], [address] Hemoglobin (Bld) [Mass/Vol] 10.9 g/dL Low 12.0-15.0 [facility] Comment on above: Performed By: #### L 500.4050, L100.0100 ####[facility] [address] [place], [address] IG% 3.800 High 0.0-0.9 [facility] Comment on above: Result Comment: IG% - Immature Granulocytes (promyelocytes, myelocytes andmetamyelocytes) > 1% indicates that a LEFT SHIFT is Present. Performed By: #### L 500.4050, L100.0100 ####[facility] [address] [place], [address] Lymphocytes/100 WBC (Bld) 5.8 % Low 19-41 [facility] Comment on above: Performed By: #### L 500.4050, L100.0100 ####[facility] [address] [place], [address] MCH (RBC) [Entitic mass] 26.3 pg Low 27.0-32.0 [facility] Comment on above: Performed By: #### L 500.4050, L100.0100 ####[facility] [address] [place], [address] MCHC (RBC) [Mass/Vol] 29.4 g/dL Low 32-36 [facility] Comment on above: Performed By: #### L 500.4050, L100.0100 ####[facility] [address] [place], [address] MCV (RBC) [Entitic vol] 89.4 fL Normal 81-99 [facility] Comment on above: Performed By: #### L 500.4050, L100.0100 ####[facility] [address] [place], [address] Monocytes/100 WBC (Bld) 6.1 % Normal 0-10 [facility] Comment on above: Performed By: #### L 500.4050, L100.0100 ####[facility] [address] [place], [address] Neutrophils/100 WBC (Bld) 83.6 % High 47-70 [facility] Comment on above: Performed By: #### L 500.4050, L100.0100 ####[facility] [address] [place], [address] Nucleated RBC (Bld) [#/Vol] 0 10*3/uL Normal 0-5 [facility] Comment on above: Performed By: #### L 500.4050, L100.0100 ####[facility] [address] [place], [address] Platelet mean volume (Bld) [Entitic vol] 10.1 fL Normal 6.2-12.0 [facility] Comment on above: Performed By: #### L 500.4050, L100.0100 ####[facility] [address] [place], [address] Platelets (Bld) [#/Vol] 315 10*3/uL Normal 150-450 [facility] Comment on above: Performed By: #### L 500.4050, L100.0100 ####[facility] [address] [place], [address] RBC (Bld) [#/Vol] 4.15 10*6/uL Low 4.2-5.4 [facility] Comment on above: Performed By: #### L 500.4050, L100.0100 ####[facility] [address] [place], [place], [address] RDW SD 48.1 fl High 35.1-43.9 [facility] Comment on above: Performed By: #### L 500.4050, L100.0100 ####[facility] [address] [place], [place], [address] WBC (Bld) [#/Vol] 20.8 10*3/uL High 4.4-11.0 [facility] Comment on above: Performed By: #### L 500.4050, L100.0100 ####[facility] [address] [place], [address] CNCRITCRon 03-15-2025 CNCRITCR Critical Care Transp ort (CCT) -------- GRACIE BANUELOS ([id number]) 1965 F Date Time Provider Department 03/15/25 MAKSIM ANDERSON During your visit today, we recorded the following information about you: Maksim Anderson APRN.CNP 03/16/2025 7:05 AM Signed CRITICAL CARE TRANSPORT MEDICAL CONTROL CONSULT NOTE Patient Name: Gracie Banuelos Service Date: March 16, 2025 Referring Facility: [facility] Accepting Facility: [facility] REASON FOR TRANSPORT: Higher level intensive [...] N/C at home) who was admitted to [facility] for evaluation of Acute on Chronic [...] HCO3 26.8. Patient is being transferred to [facility] for higher level intensive care services not available at the referring facility. En route, patient continued to be hypotensive with MAP <65. Patient was awake on the ventilator with RASS 0 to +1. PLAN: Multiple factors considered including: patient history/condition/trajec tory/stability, referring and receiving destinations, duration of transport [...] confirmed and read back via telephone with [facility] Transport road crew member, Dung Coe, Safety Administrator SIGNATURE: Maksim Anderson APRN.[facility] Acute Care Nurse Practitioner Critical Care Transport Allergies As of Date: 03/15/2025 Noted Allergy Reaction BACTRIM (SULFAMETHOXAZOLE-TRIMET H*11/28/2022 4 - Hives HYDROCODONE 08/02/2020 9 - Itching PENICILLINS 07/07/2006 14 - Other: See Comments Comments: hives VALIUM (DIAZEPAM) 11/02/2013 14 - Other: See Comments Comments: cross reaction with alcohol addiction Date Reviewed: 03/10/2025 Reviewed by: Janis Ac, RN - Fully Assessed Reason for Visit: Critical Care Transport [3858] Order(s):[] fentaNYL 50 mcg/mL 25 mcg injection [...] Pressure Monitor (more content not included)... Normal [facility] CXR for Line Placementon CXR for Line Placement Normal [facility] Carbon dioxide, total [Moles /volume] in Central venous bloodOrdered By: Sudhir Izquierdo on 03-15-2025 CO2 [Moles/Vol] 22.5 mmol/L 21.0-32.0 [facility] Chest 1 View (Portable)on Chest 1 View (Portable) Normal [facility] Chloride assayOrdered By: Rosana Izquierdo on 03-15-2025 Chloride [Moles/Vol] 103 mmol/L 98-108 [facility] Comprehensive Metabolic Prof ilon 03-15-2025 Albumin [Mass/Vol] 3.5 g/dL Normal 3.4-4.8 [facility] Comment on above: Performed By: #### L 500.4050, L100.0100 ####[facility] [address] [place], [address] Albumin/Globulin [Mass ratio] 1.0 {ratio} Normal 0.9-2.4 [facility] Comment on above: Performed By: #### L 500.4050, L100.0100 ####[facility] [address] [place], [address] ALK PHOS 191 U/L High 35-104 [facility] Comment on above: Performed By: #### L 500.4050, L100.0100 ####[facility] [address] [place], [address] ALT [Catalytic activity/Vol] 24 U/L Normal <=34 [facility] Comment on above: Performed By: #### L 500.4050, L100.0100 ####[facility] [address] [place], [address] AST [Catalytic activity/Vol] 18 U/L Normal <=31 [facility] Comment on above: Performed By: #### L 500.4050, L100.0100 ####[facility] [address] [place], [address] Bilirubin [Mass/Vol] 0.24 mg/dL Normal 0.00-1.30 [facility] Comment on above: Performed By: #### L 500.4050, L100.0100 ####[facility] [address] [place], [address] BUN/CRE 15.6 RATIO Normal 10-20 [facility] Comment on above: Performed By: #### L 500.4050, L100.0100 ####[facility] [address] [place], [address] Calcium [Mass/Vol] 9.4 mg/dL Normal 7.6-11.0 [facility] Comment on above: Performed By: #### L 500.4050, L100.0100 ####[facility] [address] [place], [address] Chloride [Moles/Vol] 103 mmol/L Normal 98-108 [facility] Comment on above: Performed By: #### L 500.4050, L100.0100 ####[facility] [address] [place], [address] CO2 [Moles/Vol] 22.5 mmol/L Normal 21.0-32.0 [facility] Comment on above: Performed By: #### L 500.4050, L100.0100 ####[facility] [address] [place], [address] Creatinine [Mass/Vol] 0.73 mg/dL Normal 0.70-1.20 [facility] Comment on above: Performed By: #### L 500.4050, L100.0100 ####[facility] [address] [place], [address] ECRCL 72.87 ml/min Normal 50-250 [facility] Comment on above: Performed By: #### L 500.4050, L100.0100 ####[facility] [address] [place], [address] GAP 14 Normal 5-15 [facility] Comment on above: Performed By: #### L 500.4050, L100.0100 ####[facility] [address] [place], [address] GFR/1.73 sq M.predicted among non-blacks MDRD (S/P/Bld) [Vol rate/Area] 94 mL/min/{1.73_m2} Normal >60 [facility] Comment on above: Result Comment: mL/m in/1.73m2 CKD-EPI Creatinine Equation (2020) Performed By: #### L 500.4050, L100.0100 ####[facility] [address] [place], [address] Globulin (S) [Mass/Vol] 3.4 g/dL Normal 2.2-4.2 [facility] Comment on above: Performed By: #### L 500.4050, L100.0100 ####[facility] [address] [place], [address] Glucose [Mass/Vol] 83 mg/dL Normal 70-99 [facility] Comment on above: Performed By: #### L 500.4050, L100.0100 ####[facility] [address] [place], [address] Potassium [Moles/Vol] 4.4 mmol/L Normal 3.3-5.1 [facility] Comment on above: Performed By: #### L 500.4050, L100.0100 ####[facility] [address] [place], [address] Sodium [Moles/Vol] 140 mmol/L Normal 133-145 [facility] Comment on above: Performed By: #### L 500.4050, L100.0100 ####[facility] [address] [place], [address] T PROT 6.9 g/dL Normal 5.9-8.4 [facility] Comment on above: Performed By: #### L 500.4050, L100.0100 ####[facility] [address] [place], [address] Urea nitrogen [Mass/Vol] 11 mg/dL Normal 4-19 [facility] Comment on above: Performed By: #### L 500.4050, L100.0100 ####[facility] [address] [place], [address] Consultation - Intensiviston 03-15-2025 Consultation - Health Services Coordinator Normal [facility] Eosinophil percentageOrdered By: Sudhir Izquierdo on 03-15-2025 Eosinophils/100 WBC (Bld) 0.3 % 0-5 [facility] Erythrocyte distribution wid th ratioOrdered By: Sudhir Izquierdo on 03-15-2025 Erythrocyte distribution width (RBC) [Ratio] 14.6 % 11.6-14.6 [facility] Erythrocyte distribution wid th standard deviationOrdered By: Sudhir Izquierdo on 03-15-2025 Erythrocyte distribution width (RBC) [Ratio] 48.1 fl High 35.1-43.9 [facility] Glomerular filtration rate ( GFR) estimation/1.73 sq m using serum, plasma, or whole bOrdered By: Sudhir Izquierdo on 03-15-2025 GFR/1.73 sq M.predicted among non-blacks MDRD (S/P/Bld) [Vol rate/Area] 94 mL/min/{1.73_m2} >60 [facility] Gram stainOrdered By: Gonzalo Sebastian on 03-15-2025 Microscopic observation Gram stain Nom (Unsp spec) [facility] HISTORY PHYSICALon HISTORY PHYSICAL HNO ID: [id number] Author: CURT PAEZ APRN.IGOR Service: Critical Care Author Type: Nurse Practitioner Type: H&P Filed: 03/16/2025 00:38 Note Text: [facility] PULMONARY AND CRITICAL CARE SERVICE DATE: March 15, 2025 SERVICE TIME: 8:49 PM Consulting Doctor: Dr. Ana Paula LOTT - [facility] CHIEF COMPLAINT: Acute on chronic hypoxic respiratory failure, severe sepsis HPI: This 59 year old female who came to [facility] today from [facility] for acute on chronic hypoxic respiratory failure requiring intubation and ventilator dependence. Patient has a history of alcoholic pancreatitis. 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 She was recently admitted to [facility] where she was seen by GI specialist Dr. Garrido and had a pancreatic stent placed on Thursday. Per report from patient, she had been having worsening epigastric pain since then. She denied infectious symptoms, shortness of breath, chest pain, urinary symptoms, diarrhea, or constipation. She has a history of COPD and is on 5 L nasal cannula at baseline. Patient went to [facility] on 03/13 for this epigastric pain. [...] scan. Given her recent stent placement at [facility], initiation of transfer made and was accepted. Unfortunately, no bed available at that time therefore patient admitted to [facility] for pain management and fluid resuscitation. While admitted, patient respiratory status continued to worsen. She required high flow nasal cannula and subsequently intubation while in their ICU. Per report, patient unable to be adequately oxygenated and more emergent transfer was sought out. Patient able to be transferred to regional [facility] was contacted. Patient was discussed extensively with physician and ICU team here at [facility]. Patient ultimately accepted for transfer. Upon arrival [...] started on vasopressin. Family en route to [facility]. Orders placed. PAST MEDICAL HISTORY: SEE CHRONIC [...] Stage 3 severe COPD by GOLD classification ([facility]) 2018 Tobacco use greater than [...] History Toba (more content not included)... Normal [facility] Hematocrit Auto (Bld) [Volum e fraction]Ordered By: Sudhir Izquierdo on 03-15-2025 Hematocrit (Bld) [Volume fraction] 37.1 % 37-47 [facility] Hemoglobin measurementOrdere d By: Sudhir Izquierdo on 03-15-2025 Hemoglobin (Bld) [Mass/Vol] 10.9 g/dL Low 12.0-15.0 [facility] Immature granulocytes/100 WB C Auto (Bld)Ordered By: Sudhir Izquierdo on 03-15-2025 Immature granulocytes/100 WBC (Bld) 3.800 % High 0.0-0.9 [facility] L503.7505on 03-15-2025 Natriuretic peptide B (Bld) [Mass/Vol] 4257 pg/mL High <=900 [facility] Comment on above: Result Comment: Hear t Failure Unlikely: < 300 pg/mLHeart Failure Likely< 50 Years: > 450 pg/mL50-75 Years: > 900 pg/mL>75 Years: > 1800 pg/mL Performed By: #### L 503.7507 ####[facility] [address] [place], [place], [address] L509.7004on 03-15-2025 Procalcitonin 0.28 ng/mL High <=0.10 [facility] Comment on above: Result Comment: Inte rpretation:<0.10-0.25 ng/mL: Antibiotic therapy discouraged. Bacterialinfection unlikely.0.25-0.50 ng/mL: Antibiotic therapy encouraged. Bacterialinfection possible.>0.50 ng/mL: Antibiotic therapy strongly encouraged.Suggestive of presence of bacterial infection.PCT should always be interpreted in the clinical context ofthe patient. Therefore, clinicians should use the PCTresults in conjunction with other laboratory findings andclinical signs of the patient. Performed By: #### L 493.7006 ####[facility] [address] [place], [place], [address] MCV (mean corpuscular volume ) determinationOrdered By: Sudhir Izquierdo on 03-15-2025 MCV (RBC) [Entitic vol] 89.4 fL 81-99 [facility] Mean corpuscular hemoglobin (MCH) determinationOrdered By: Sudhir Izquierdo on 03-15-2025 MCH (RBC) [Entitic mass] 26.3 pg Low 27.0-32.0 [facility] Measurement, pHOrdered By: Nathalia Izquierdo on 03-15-2025 pH (Unsp spec) 7.26 [pH] Low 7.35-7.45 [facility] Microbial respiratory cultur eOrdered By: Gonzalo Sebastian on 03-15-2025 Microorganism identified Cx Nom (Unsp spec) Streptococcus pneumoniae Abnormal [facility] Microorganism identified Cx Nom (Unsp spec) Staphylococcus aureus Abnormal [facility] Monocyte percentageOrdered B y: Sudhir Izquierdo on 03-15-2025 Monocytes/100 WBC (Bld) 6.1 % 0-10 [facility] Natriuretic peptide.B prohor marium N-Terminal [Mass/volume] in Serum or PlasmaOrdered By: Jackson Chopra on 03-15-2025 Natriuretic peptide.B prohormone N-Terminal [Mass/Vol] 4257 pg/mL High <900 [facility] Neutrophil percentageOrdered By: Sudhir Izquierdo on 03-15-2025 Neutrophils/100 WBC (Bld) 83.6 % High 47-70 [facility] No Panel InformationOrdered By: Sudhir Izquierdo on 03-15-2025 ART [facility] R Radial [facility] AC [facility] ET Tube [facility] 450.0 mL [facility] 16 [facility] 12 [facility] 17:53:45 [facility] BROWN [facility] Yes [facility] 18 U/L <32 [facility] Platelet countOrdered By: Rosana Izquierdo on 03-15-2025 Platelets (Bld) [#/Vol] 315 10*3/uL 150-450 [facility] Potassium measurement (mass/ volume)Ordered By: Sudhir Izquierdo on 03-15-2025 Potassium (Unsp spec) [Mass/Vol] 4.4 mmol/L 3.3-5.1 [facility] Procalcitonin [Mass/volume] in Serum or Plasma by ImmunoassayOrdered By: Gonzalo Sebastian on 03-15-2025 Procalcitonin IA [Mass/Vol] 0.28 ng/mL High <0.11 [facility] RBC Auto (Bld) [#/Vol]Ordere d By: Sudhir Izquierdo on 03-15-2025 RBC (Bld) [#/Vol] 4.15 10*6/uL Low 4.2-5.4 [facility] Serum creatinine measurement (mass/volume)Ordered By: Sudhir Izquierdo on 03-15-2025 Creatinine [Mass/Vol] 0.73 mg/dL 0.70-1.20 [facility] Serum globulin measurementOr dered By: Sudhir Izquierdo on 03-15-2025 Globulin (S) [Mass/Vol] 3.4 g/dL 2.2-4.2 [facility] Serum glucose measurement (m ass/volume)Ordered By: Sudhir Izquierdo on 03-15-2025 Glucose [Mass/Vol] 83 mg/dL 70-99 [facility] Serum or plasma alanine pimentel otransferase (ALT) measurementOrdered By: Sudhir Izquierdo on 03-15-2025 ALT [Catalytic activity/Vol] 24 U/L <35 [facility] Serum or plasma albumin esthela urement (mass/volume)Ordered By: Sudhir Izquierdo on 03-15-2025 Albumin [Mass/Vol] 3.5 g/dL 3.4-4.8 [facility] Serum or plasma albumin/glob ulin mass ratioOrdered By: Sudhir Izquierdo on 03-15-2025 Albumin/Globulin [Mass ratio] 1.0 {ratio} 0.9-2.4 [facility] Serum or plasma alkaline jose sphatase measurementOrdered By: Sudhir Izquierdo on 03-15-2025 ALP [Catalytic activity/Vol] 191 U/L High 35-104 [facility] Serum or plasma calcium esthela urement (mass/volume)Ordered By: Sudhir Izquierdo on 03-15-2025 Calcium [Mass/Vol] 9.4 mg/dL 7.6-11.0 [facility] Serum or plasma urea nitroge n measurement (mass/volume)Ordered By: Sudhir Izquierdo on 03-15-2025 Urea nitrogen [Mass/Vol] 11 mg/dL 4-19 [facility] Sodium levelOrdered By: Sebastian Izquierdo on 03-15-2025 Sodium [Moles/Vol] 140 mmol/L 133-145 [facility] Total carbon dioxide measure mentOrdered By: Sudhir Izquierdo on 03-15-2025 CO2 [Moles/Vol] 29 mmol/L [facility] Total proteinOrdered By: Luis Izquierdo on 03-15-2025 Protein [Mass/Vol] 6.9 g/dL 5.9-8.4 [facility] Urine Cultureon 03-15-2025 [facility] Mixed Gram Positive Organisms [place] Count 80,000-100,000 [facility] Mixed contaminants. Submit a new specimen if indicated. Normal [facility] Comment on above: Performed By: #### M 100.2200 ####[facility] [address] [place], [place], [id number] White blood cell (WBC) count Ordered By: Sudhir Izquierdo on 03-15-2025 WBC (Bld) [#/Vol] 20.8 10*3/uL High 4.4-11.0 [facility] XR ABDOMEN 1V SUPINEon 03-15 XR ABDOMEN [...] Evaluate tube, line, or lead position (accession [id number]), Evaluate tube, line or lead position (accession [id number]) , establish chronic pancreatitis. MQ: XCPR_5 Comparison: [...] Bilateral pleural effusions with nonspecific retrocardiac opacity. Charge Entry: BABATUNDE Transcribe Date/Time: Mar 16 2025 1:30A Dictated by : SUELLEN SÁNCHEZ MD This examination was interpreted and the report reviewed and electronically signed by: SUELLEN SÁNCHEZ MD on Mar 16 2025 1:33AM EST [id number] [facility] XR CHEST 1V FRONTAL PORTon 0 03-15-2025 [...] Evaluate tube, line, or lead position (accession [id number]), Evaluate tube, line or lead position (accession [id number]) , establish chronic pancreatitis. MQ: XCPR_5 Comparison: [...] Bilateral pleural effusions with nonspecific retrocardiac opacity. Charge Entry: BABATUNDE Transcribe Date/Time: Mar 16 2025 1:30A Dictated by : SUELLEN SÁNCHEZ MD This examination was interpreted and the report reviewed and electronically signed by: SUELLEN SÁNCHEZ MD on Mar 16 2025 1:33AM EST [id number] Normal [facility] CBC W/Diff, Automatedon - Absolute Lymph 1.97 X10 3/uL Normal 0.83-4.51 [facility] Comment on above: Performed By: #### L 100.0100 ####[facility] [address] [place], [address] Absolute Neut 17.9 X10 3/uL High 2.0-7.7 [facility] Comment on above: Performed By: #### L 100.0100 ####[facility] [address] [place], [address] Basophils/100 WBC (Bld) 0.4 % Normal 0-1 [facility] Comment on above: Performed By: #### L 100.0100 ####[facility] [address] [place], [address] Eosinophils/100 WBC (Bld) 1.2 % Normal 0-5 [facility] Comment on above: Performed By: #### L 100.0100 ####[facility] [address] [place], [address] Erythrocyte distribution width (RBC) [Ratio] 14.8 % High 11.6-14.6 [facility] Comment on above: Performed By: #### L 100.0100 ####[facility] [address] [place], [address] Hematocrit (Bld) [Volume fraction] 33.5 % Low 37-47 [facility] Comment on above: Performed By: #### L 100.0100 ####[facility] [address] [place], [address] Hemoglobin (Bld) [Mass/Vol] 9.9 g/dL Low 12.0-15.0 [facility] Comment on above: Performed By: #### L 100.0100 ####[facility] [address] [place], [address] IG% 1.300 High 0.0-0.9 [facility] Comment on above: Result Comment: IG% - Immature Granulocytes (promyelocytes, myelocytes andmetamyelocytes) > 1% indicates that a LEFT SHIFT is Present. Performed By: #### L 100.0100 ####[facility] [address] [place], [address] Lymphocytes/100 WBC (Bld) 9.0 % Low 19-41 [facility] Comment on above: Performed By: #### L 100.0100 ####[facility] [address] [place], [address] MCH (RBC) [Entitic mass] 26.3 pg Low 27.0-32.0 [facility] Comment on above: Performed By: #### L 100.0100 ####[facility] [address] [place], [address] MCHC (RBC) [Mass/Vol] 29.6 g/dL Low 32-36 [facility] Comment on above: Performed By: #### L 100.0100 ####[facility] [address] [place], [address] MCV (RBC) [Entitic vol] 88.9 fL Normal 81-99 [facility] Comment on above: Performed By: #### L 100.0100 ####[facility] [address] [place], [address] Monocytes/100 WBC (Bld) 6.4 % Normal 0-10 [facility] Comment on above: Performed By: #### L 100.0100 ####[facility] [address] [place], [address] Neutrophils/100 WBC (Bld) 81.7 % High 47-70 [facility] Comment on above: Performed By: #### L 100.0100 ####[facility] [address] [place], [address] Nucleated RBC (Bld) [#/Vol] 0 10*3/uL Normal 0-5 [facility] Comment on above: Performed By: #### L 100.0100 ####[facility] [address] [place], [address] Platelet mean volume (Bld) [Entitic vol] 10.8 fL Normal 6.2-12.0 [facility] Comment on above: Performed By: #### L 100.0100 ####[facility] [address] [place], [address] Platelets (Bld) [#/Vol] 263 10*3/uL Normal 150-450 [facility] Comment on above: Performed By: #### L 100.0100 ####[facility] [address] [place], [address] RBC (Bld) [#/Vol] 3.77 10*6/uL Low 4.2-5.4 [facility] Comment on above: Performed By: #### L 100.0100 ####[facility] [address] [place], [address] RDW SD 48.7 fl High 35.1-43.9 [facility] Comment on above: Performed By: #### L 100.0100 ####[facility] [address] [place], [address] WBC (Bld) [#/Vol] 21.9 10*3/uL High 4.4-11.0 [facility] Comment on above: Performed By: #### L 100.0100 ####[facility] [address] [place], [address] Comprehensive Metabolic Prof ilon 03-14-2025 Albumin [Mass/Vol] 3.5 g/dL Normal 3.4-4.8 [facility] Comment on above: Performed By: #### L 501.2450, L500.4050 ####[facility] [address] [place], [address] Albumin/Globulin [Mass ratio] 1.1 {ratio} Normal 0.9-2.4 [facility] Comment on above: Performed By: #### L 501.2450, L500.4050 ####[facility] [address] [place], [address] ALK PHOS 188 U/L High 35-104 [facility] Comment on above: Performed By: #### L 501.2450, L500.4050 ####[facility] [address] [place], [address] ALT [Catalytic activity/Vol] 29 U/L Normal <=34 [facility] Comment on above: Performed By: #### L 501.2450, L500.4050 ####[facility] [address] [place], [address] AST [Catalytic activity/Vol] 22 U/L Normal <=31 [facility] Comment on above: Performed By: #### L 501.2450, L500.4050 ####[facility] [address] [place], [address] Bilirubin [Mass/Vol] 0.23 mg/dL Normal 0.00-1.30 [facility] Comment on above: Performed By: #### L 501.2450, L500.4050 ####[facility] [address] [place], [address] BUN/CRE 20.6 RATIO High 10-20 [facility] Comment on above: Performed By: #### L 501.2450, L500.4050 ####[facility] [address] [place], [address] Calcium [Mass/Vol] 9.1 mg/dL Normal 7.6-11.0 [facility] Comment on above: Performed By: #### L 501.2450, L500.4050 ####[facility] [address] [place], [address] Chloride [Moles/Vol] 101 mmol/L Normal 98-108 [facility] Comment on above: Performed By: #### L 501.2450, L500.4050 ####[facility] [address] [place], [address] CO2 [Moles/Vol] 24.2 mmol/L Normal 21.0-32.0 [facility] Comment on above: Performed By: #### L 501.2450, L500.4050 ####[facility] [address] [place], [address] Creatinine [Mass/Vol] 0.90 mg/dL Normal 0.70-1.20 [facility] Comment on above: Performed By: #### L 501.2450, L500.4050 ####[facility] [address] [place], [address] ECRCL 59.11 ml/min Normal 50-250 [facility] Comment on above: Performed By: #### L 501.2450, L500.4050 ####[facility] [address] [place], [address] GAP 15 Normal 5-15 [facility] Comment on above: Performed By: #### L 501.2450, L500.4050 ####[facility] [address] [place], [address] GFR/1.73 sq M.predicted among non-blacks MDRD (S/P/Bld) [Vol rate/Area] 73 mL/min/{1.73_m2} Normal >60 [facility] Comment on above: Result Comment: mL/m in/1.73m2 CKD-EPI Creatinine Equation (2020) Performed By: #### L 501.2450, L500.4050 ####[facility] [address] [place], [address] Globulin (S) [Mass/Vol] 3.1 g/dL Normal 2.2-4.2 [facility] Comment on above: Performed By: #### L 501.2450, L500.4050 ####[facility] [address] [place], [address] Glucose [Mass/Vol] 64 mg/dL Low 70-99 [facility] Comment on above: Performed By: #### L 501.2450, L500.4050 ####[facility] [address] [place], [address] Potassium [Moles/Vol] 4.1 mmol/L Normal 3.3-5.1 [facility] Comment on above: Performed By: #### L 501.2450, L500.4050 ####[facility] [address] [place], [address] Sodium [Moles/Vol] 140 mmol/L Normal 133-145 [facility] Comment on above: Performed By: #### L 501.2450, L500.4050 ####[facility] [address] [place], [address] T PROT 6.6 g/dL Normal 5.9-8.4 [facility] Comment on above: Performed By: #### L 501.2450, L500.4050 ####[facility] [address] [place], [address] Urea nitrogen [Mass/Vol] 19 mg/dL Normal 4-19 [facility] Comment on above: Performed By: #### L 501.2450, L500.4050 ####[facility] [address] [place], [address] Lipaseon 03-14-2025 Lipase [Catalytic activity/Vol] 362 U/L High 13-75 [facility] Comment on above: Result Comment: Jenny capellan note:LIPASE revised reference range effective 23.New Lipase methodology. Expected to produce lower valuesthan the previous assay method.NEW Reference Range: 13 - 75 U/L Performed By: #### L 501.2450, L500.4050 ####[facility] [address] [place], [place], [address] Abdomen/Pelvis W IV Cont ONL Yon 03-13-2025 Abdomen/Pelvis W IV Cont ONLY Normal [facility] Absolute lymphocyte countOrd ered By: Macario Alex on 03-13-2025 Lymphocytes Auto (Unsp spec) [#/Vol] 1.85 10*3/uL 0.83-4.51 [facility] Alcohol, Blood (Medical)-Ser umon 03-13-2025 SERUM ETOH < 10.1 Normal <=10.0 [facility] Comment on above: Result Comment: This test is for medical purposes only. The legaldefinition of intoxication varies according to local law. Performed By: #### L 501.9100 ####[facility] [address] [place], [address] Anion gap in Serum or Plasma Ordered By: Macario Alex on 03-13-2025 Anion gap [Moles/Vol] 14 mmol/L 5-15 [facility] Automated lymphocyte count a s percentage of total leukocytesOrdered By: Macario Alex on 03-13-2025 Lymphocytes/100 WBC Auto (Unsp spec) 6.3 % Low 19-41 [facility] BUN/creatinine ratioOrdered By: Macario Alex on 03-13-2025 Urea nitrogen/Creatinine [Mass ratio] 16.9 mg/mg 10- [facility] Basic Metabolic Profile (BMP )on 03-13-2025 BUN/CRE 16.9 RATIO Normal - [facility] Comment on above: Performed By: #### L 501.2450, L500.3400, L500.2500 ####[facility] [address] [place], [address] Calcium [Mass/Vol] 9.5 mg/dL Normal 7.6-11.0 [facility] Comment on above: Performed By: #### L 501.2450, L500.3400, L500.2500 ####[facility] [address] [place], [address] Chloride [Moles/Vol] 92 mmol/L Low 98-108 [facility] Comment on above: Performed By: #### L 501.2450, L500.3400, L500.2500 ####[facility] [address] [place], [address] CO2 [Moles/Vol] 28.0 mmol/L Normal 21.0-32.0 [facility] Comment on above: Performed By: #### L 501.2450, L500.3400, L500.2500 ####[facility] [address] [place], [address] Creatinine [Mass/Vol] 0.84 mg/dL Normal 0.70-1.20 [facility] Comment on above: Performed By: #### L 501.2450, L500.3400, L500.2500 ####[facility] [address] [place], [address] ECRCL 58.18 ml/min Normal 50-250 [facility] Comment on above: Performed By: #### L 501.2450, L500.3400, L500.2500 ####[facility] [address] [place], [address] GAP 14 Normal 5-15 [facility] Comment on above: Performed By: #### L 501.2450, L500.3400, L500.2500 ####[facility] [address] [place], [address] GFR/1.73 sq M.predicted among non-blacks MDRD (S/P/Bld) [Vol rate/Area] 79 mL/min/{1.73_m2} Normal >60 [facility] Comment on above: Result Comment: mL/m in/1.73m2 CKD-EPI Creatinine Equation (2020) Performed By: #### L 501.2450, L500.3400, L500.2500 ####[facility] [address] [place], [address] Glucose [Mass/Vol] 100 mg/dL High 70-99 [facility] Comment on above: Performed By: #### L 501.2450, L500.3400, L500.2500 ####[facility] [address] [place], [address] Potassium [Moles/Vol] 3.6 mmol/L Normal 3.3-5.1 [facility] Comment on above: Performed By: #### L 501.2450, L500.3400, L500.2500 ####[facility] [address] [place], [address] Sodium [Moles/Vol] 134 mmol/L Normal 133-145 [facility] Comment on above: Performed By: #### L 501.2450, L500.3400, L500.2500 ####[facility] [address] [place], [address] Urea nitrogen [Mass/Vol] 14 mg/dL Normal 4-19 [facility] Comment on above: Performed By: #### L 501.2450, L500.3400, L500.2500 ####[facility] [address] [place], [address] Basophil percentageOrdered B y: Macario Alex on 03-13-2025 Basophils/100 WBC (Bld) 0.4 % 0-1 [facility] Bilirubin Test strip Ql (U)O rdered By: Macario Alex on 03-13-2025 Bilirubin Ql (U) Negative Negative [facility] Bilirubin directOrdered By: Macario Alex on 03-13-2025 Bilirubin.direct [Mass/Vol] 0.29 mg/dL 0.00-0.30 [facility] Bilirubin, totalOrdered By: Macario Alex on 03-13-2025 Bilirubin [Mass/Vol] 0.49 mg/dL 0.00-1.30 [facility] Blood manual differential co mment interpretation (narrative result)Ordered By: Macario Alex on 03-13-2025 Manual differential comment Geovany (Bld) [Interp] SCANNED [facility] CBC W/Diff, Automatedon 02-26 SMEAR COMMENT SCANNED Normal [facility] Comment on above: Result Comment: NEUT ROPHILIA NOTEDMONOCYTOSIS NOTED Performed By: #### L 503.6005, L100.0100 ####[facility] [address] [facility] [place], [address] Carbon dioxide, total [Moles /volume] in Central venous bloodOrdered By: Macario Alex on 03-13-2025 CO2 [Moles/Vol] 28.0 mmol/L 21.0-32.0 [facility] Chest PA and Lateralon 03-13 Chest PA and Lateral Normal [facility] Chloride assayOrdered By: David Alex on 03-13-2025 Chloride [Moles/Vol] 92 mmol/L Low 98-108 [facility] Emergency Department Summary on 03-13-2025 Emergency Department Summary Normal [facility] Eosinophil percentageOrdered By: Macario Alex on 03-13-2025 Eosinophils/100 WBC (Bld) 0.5 % 0-5 [facility] Erythrocyte distribution wid th ratioOrdered By: Macario Alex on 03-13-2025 Erythrocyte distribution width (RBC) [Ratio] 14.7 % High 11.6-14.6 [facility] Erythrocyte distribution wid th standard deviationOrdered By: [facility] El[facility] on 03-13-2025 Erythrocyte distribution width (RBC) [Ratio] 46.1 fl High 35.1-43.9 [facility] Glomerular filtration rate ( GFR) estimation/1.73 sq m using serum, plasma, or whole bOrdered By: [facility] on 03-13-2025 GFR/1.73 sq M.predicted among non-blacks MDRD (S/P/Bld) [Vol rate/Area] 79 mL/min/{1.73_m2} >60 [facility] Hematocrit Auto (Bld) [Volum e fraction]Ordered By: [facility] on 03-13-2025 Hematocrit (Bld) [Volume fraction] 35.9 % Low 37-47 [facility] Hemoglobin measurementOrdere d By: [facility] on 03-13-2025 Hemoglobin (Bld) [Mass/Vol] 11.2 g/dL Low 12.0-15.0 [facility] Immature granulocytes/100 WB C Auto (Bld)Ordered By: [facility] on 03-13-2025 Immature granulocytes/100 WBC (Bld) 1.200 % High 0.0-0.9 [facility] Ketones Test strip Ql (U)Ord ered By: [facility] on 03-13-2025 Ketones Ql (U) Negative Negative [facility] Lactic Acidon 03-13-2025 Lactate [Moles/Vol] mmol/L Normal 0.0-2.0 [facility] Comment on above: Order Comment: Y Performed By: #### L 503.6005, L100.0100 ####[facility] [address] [place], [address] Lipaseon 03-13-2025 Lipase [Catalytic activity/Vol] 378 U/L High 13-75 [facility] Comment on above: Result Comment: Jenny capellan note:LIPASE revised reference range effective 23.New Lipase methodology. Expected to produce lower valuesthan the previous assay method.NEW Reference Range: 13 - 75 U/L Performed By: #### L 501.2450, L500.3400, L500.2500 ####[facility] [address] [place], [address] Liver Profileon 03-13-2025 Albumin [Mass/Vol] 3.8 g/dL Normal 3.4-4.8 [facility] Comment on above: Performed By: #### L 501.2450, L500.3400, L500.2500 ####[facility] [address] [place], [address] ALK PHOS 149 U/L High 35-104 [facility] Comment on above: Performed By: #### L 501.2450, L500.3400, L500.2500 ####[facility] [address] [place], [address] ALT [Catalytic activity/Vol] 38 U/L High <=34 [facility] Comment on above: Performed By: #### L 501.2450, L500.3400, L500.2500 ####[facility] [address] [place], [address] AST [Catalytic activity/Vol] 21 U/L Normal <=31 [facility] Comment on above: Performed By: #### L 501.2450, L500.3400, L500.2500 ####[facility] [address] [place], [address] Bilirubin [Mass/Vol] 0.49 mg/dL Normal 0.00-1.30 [facility] Comment on above: Performed By: #### L 501.2450, L500.3400, L500.2500 ####[facility] [address] [place], [address] Bilirubin.direct [Mass/Vol] 0.29 mg/dL Normal 0.00-0.30 [facility] Comment on above: Performed By: #### L 501.2450, L500.3400, L500.2500 ####[facility] [address] [place], [address] Globulin (S) [Mass/Vol] 3.2 g/dL Normal 2.2-4.2 [facility] Comment on above: Performed By: #### L 501.2450, L500.3400, L500.2500 ####[facility] [address] [place], [address] T PROT 7.0 g/dL Normal 5.9-8.4 [facility] Comment on above: Performed By: #### L 501.2450, L500.3400, L500.2500 ####[facility] [address] [place], [address] MCV (mean corpuscular volume ) determinationOrdered By: Macario Alex on 03-13-2025 MCV (RBC) [Entitic vol] 86.1 fL 81-99 [facility] Mean corpuscular hemoglobin (MCH) determinationOrdered By: Macario Alex on 03-13-2025 MCH (RBC) [Entitic mass] 26.9 pg Low 27.0-32.0 [facility] Monocyte percentageOrdered B y: Macario Alex on 03-13-2025 Monocytes/100 WBC (Bld) 8.1 % 0-10 [facility] Mucus LM Ql (Urine sed)Order ed By: Macario Alex on 03-13-2025 Mucus Ql (Urine sed) 0 SEEN /hpf [facility] Neutrophil percentageOrdered By: Macario Alex on 03-13-2025 Neutrophils/100 WBC (Bld) 83.5 % High 47-70 [facility] Nitrite Test strip Ql (U)Ord ered By: Macario Alex on 03-13-2025 Nitrite Ql (U) Negative Negative [facility] No Panel InformationOrdered By: Macario Alex on 03-13-2025 21 U/L <32 [facility] Platelet countOrdered By: David Alex on 03-13-2025 Platelets (Bld) [#/Vol] 277 10*3/uL 150-450 [facility] Potassium measurement (mass/ volume)Ordered By: Macario Alex on 03-13-2025 Potassium (Unsp spec) [Mass/Vol] 3.6 mmol/L 3.3-5.1 [facility] Protein Test strip Ql (U)Ord ered By: Macario Alex on 03-13-2025 Protein Ql (U) 30 mg/dl High Negative [facility] RBC Auto (Bld) [#/Vol]Ordere d By: Macario Alex on 03-13-2025 RBC (Bld) [#/Vol] 4.17 10*6/uL Low 4.2-5.4 [facility] Serum creatinine measurement (mass/volume)Ordered By: Macario Alex on 03-13-2025 Creatinine [Mass/Vol] 0.84 mg/dL 0.70-1.20 [facility] Serum globulin measurementOr dered By: Macario Alex on 03-13-2025 Globulin (S) [Mass/Vol] 3.2 g/dL 2.2-4.2 [facility] Serum glucose measurement (m ass/volume)Ordered By: Macario Alex on 03-13-2025 Glucose [Mass/Vol] 100 mg/dL High 70-99 [facility] Serum or plasma alanine pimentel otransferase (ALT) measurementOrdered By: Macario Alex on 03-13-2025 ALT [Catalytic activity/Vol] 38 U/L High <35 [facility] Serum or plasma albumin esthela urement (mass/volume)Ordered By: Macario Elise on 03-13-2025 Albumin [Mass/Vol] 3.8 g/dL 3.4-4.8 [facility] Serum or plasma alkaline jose sphatase measurementOrdered By: Macario Alex on 03-13-2025 ALP [Catalytic activity/Vol] 149 U/L High 35-104 [facility] Serum or plasma calcium esthela urement (mass/volume)Ordered By: Macario Elise on 03-13-2025 Calcium [Mass/Vol] 9.5 mg/dL 7.6-11.0 [facility] Serum or plasma ethanol esthela urement (mass/volume)Ordered By: Macario Elise on 03-13-2025 Ethanol [Mass/Vol] mg/dL <10.1 [facility] Serum or plasma urea nitroge n measurement (mass/volume)Ordered By: Macario Alex on 03-13-2025 Urea nitrogen [Mass/Vol] 14 mg/dL 4-19 [facility] Sodium levelOrdered By: Beto Alex on 03-13-2025 Sodium [Moles/Vol] 134 mmol/L 133-145 [facility] Squamous epithelial cells de tection in urine sediment by light microscopyOrdered By: Macario Alex on 03-13-2025 Epithelial cells.squamous LM Ql (Urine sed) 0-5 SEEN /hpf 5-10 [facility] Total proteinOrdered By: Gumaro Alex on 03-13-2025 Protein [Mass/Vol] 7.0 g/dL 5.9-8.4 [facility] Urinalysis, Completeon 03-13 EPI,SQUAMOUS 0-5 SEEN Normal 5-10 [facility] Comment on above: Order Comment: CLEAN CATCH Performed By: #### L 400.0001 ####[facility] [address] [facility] [address] RBC 0-5 SEEN Normal 0-5 [facility] Comment on above: Order Comment: CLEAN CATCH Performed By: #### L 400.0001 ####[facility] [address] [facility] [address] WBC 5-10 SEEN Normal 0-5 [facility] Comment on above: Order Comment: CLEAN CATCH Performed By: #### L 400.0001 ####[facility] [address] [place] [id number] BACTERIA 0 SEEN Normal None Seen [facility] Comment on above: Order Comment: CLEAN CATCH Performed By: #### L 400.0001 ####[facility] [address] [place], [address] Mucus Ql (Urine sed) 0 SEEN Normal [facility] Comment on above: Order Comment: CLEAN CATCH Performed By: #### L 400.0001 ####[facility] [address] [place], [address] Urine clarityOrdered By: Gumaro Alex on 03-13-2025 Clarity (U) Clear Clear [facility] Urine color determinationOrd ered By: Macario Alex on 03-13-2025 Color (U) Straw Yellow [facility] Urine cultureOrdered By: Gumaro Alex on 03-13-2025 Bacteria identified Cx Nom (U) Positive Abnormal [facility] Urine glucose detectionOrder ed By: Macario Alex on 03-13-2025 Glucose Ql (U) Normal mg/dl Normal [facility] Urine leukocyte esterase det ection by dipstickOrdered By: Macario Alex on 03-13-2025 Leukocyte esterase Test strip Ql (U) 100 /ul High Negative [facility] Urine pHOrdered By: Macario Barth on 03-13-2025 pH (U) 7.0 [pH] 5.0 - 8.0 [facility] Urine sediment bacteria coun t by microscopy (number/high power field)Ordered By: Macario Alex on 03-13-2025 Bacteria LM.HPF (Urine sed) [#/Area] 0 /[HPF] None Seen [facility] Urine specific gravity measu rementOrdered By: Macario Alex on 03-13-2025 Specific gravity (U) [Rel density] 1.005 1.002-1.030 [facility] Urine urobilinogen measureme ntOrdered By: Macario Alex on 03-13-2025 Urobilinogen Ql (U) Normal mg/dl Normal [facility] White blood cell (WBC) count Ordered By: Macario FelizAlfa on 03-13-2025 WBC (Bld) [#/Vol] 29.2 10*3/uL High 4.4-11.0 [facility] White blood cell countOrdere d By: Macariodee MichelleSandee on 03-13-2025 White blood cell count 5-10 SEEN /hpf 0-5 [facility] ANES POSTPROC EVALon 025 ANES POSTPROC EVAL HNO ID: [id number] Author: JOSE MARIA CHAKRABORTY MD Service: ? Author Type: Anesthesiologist Type: Anesthesia Postprocedure Evaluation Filed: 03/10/2025 15:51 Note Text: POST ANESTHESIA EVALUATION NOTE : 1965 Procedure Summary Date: 03/10/25 Room / Location: Gastroenterology Anesthesia Start: 1359 Anesthesia Stop: Procedure: ERCP Diagnosis: Other chronic pancreatitis (HCC) Scheduled Providers: Jane Farrell MD; Jose Maria Chakraborty MD; Vanessa Perez APRN.OBSERVATORY DIRECTOR Responsible Provider: Jose Maria Chakraborty MD Anesthesia [...] March 10, 2025 TIME: 3:16 PM CSN: [id number] Normal [facility] ANES PRE-OPon 03-10-2025 ANES PRE-OP HNO ID: [id number] Author: JOSE MARIA CHAKRABORTY MD Service: ? Author Type: Anesthesiologist Type: Anesthesia Preprocedure Evaluation Filed: 03/10/2025 12:26 Note Text: ANESTHESIOLOGY DAY OF SURGERY NOTE : 1965 Procedure Information Date/Time: 03/10/25 1300 Scheduled providers: Jane Farrell MD; Jose Maria Chakraborty MD; Vanessa Perez APRN.OBSERVATORY DIRECTOR Procedure: ERCP Location: Gastroenterology Estimated body mass [...] Oneill present: yes Lip Bite Test: I Microretrognathia/Micron agthia/Recessed Chin: No DENTAL Dental findings: teeth intact. [...] 48 areli (more content not included)... Normal [facility] ERCP Study observation Narra tiveon 03-10-2025 [facility] Radiology Study observation (narrative) [facility] NURSING PROGon 03-10-2025 NURSING PROG HNO ID: [id number] Author: JANIS AC, SARWAT Service: Gastroenterology Author Type: Registered Nurse Type: Nursing Progress Note Filed: 03/10/2025 17:07 Note Text: Dr Chakraborty anesthesia ok d patient to be discharged Three hot packs given to patient for right arm Normal [facility] NURSING PROG HNO ID: [id number] Author: JANIS AC RN Service: Gastroenterology Author Type: Registered Nurse Type: Nursing Progress Note Filed: 03/10/2025 16:51 Note Text: Patient states her arm where the infiltration occurred it is burning Patient informed to keep an eye on the infiltrated area so a blister does not form of it does go to the Emergency room Normal [facility] NURSING PROG HNO ID: [id number] Author: JANIS AC RN Service: Gastroenterology Author Type: Registered Nurse Type: Nursing Progress Note Filed: 03/10/2025 16:24 Note Text: Right AC IV infiltrated with 100cc IV Propofol large swollen red hard area Hot pack applied Patient crying stating arm hurts patient Gracie and sister Magui spoke to Customer Liaison nurse transport manager [facility] [place] number given. Pharmacy called, Zelda pharmacist notified unable to help. Called Drug information line spoke with Milan vasyl monitor patient There is no information in regards to amount of time Propofol will take to infuse .Patient is awake alert oriented x3 Normal [facility] NURSING PROG HNO ID: [id number] Author: JANIS AC RN Service: Gastroenterology Author Type: Registered Nurse Type: Nursing Progress Note Filed: 03/10/2025 15:51 Note Text: Dr Chakraborty anesthesia notified patients blood pressure low 73/52 74/51 Albumin 25 grams given Patient awake alert oriented x3 skin warm and dry Normal [facility] NURSING PROG HNO ID: [id number] Author: JANIS AC RN Service: Gastroenterology Author Type: Registered Nurse Type: Nursing Progress Note Filed: 03/10/2025 15:27 Note Text: AMBULATORY PATIENT EDUCATION NOTE TOPIC: GI PROCEDURES: Endoscopic Retrograde CholangioPancreatography (ERCP) with or without biopsy,stenting,dilation and/or treatment READINESS [...] None Electronically Signed By: Janis Ac RN [facility] NURSING PROG HNO ID: [id number] Author: ADRIAN EDMOND RN Service: ? Author [...] Adrian Edmond RN In Department: GASTROENTEROLOGY Normal [facility] 03-07-2025 CNPN Telephone (GASTMN) -------- GRACIE BANUELOS ([id number]) 1965 F Date Time Provider Department 03/07/25 [facility] During your visit today, we recorded the following information about you: Isis Gil 03/07/2025 11:48 AM Signed She stated there was supposed to be a letter or some document to be faxed over to [facility] to help pay for her gas prior to her ERCP on 03/10/25 Email: [email or web address] Are we able to get that sent over for patient? Thank you Juan Mike LPN 03/07/2025 12:29 PM Signed Jane Farrell MD Department of Gastroenterology- Advanced Endoscopy [address] [place], [place] [id number] 03/07/2025 Pt. name: Gracie Banuelos 1965 MEDICAL Procedure This is to certify that Gracie Banuelos this is a letter to confirm that Gracie has a procedure at [facility] on 03/10 with an arrival time of 12pm. This appointment needs to have a responsible adult class c truck driver to accompany her for transportation to and after her procedure. Sincerely, Isis Long MD 03/07/2025 2:30 PM Signed Patient called, did not receive email. She stated it had to all be in lower case. I resent email Thank you Isis Joe Allergies As of Date: 03/07/2025 Noted Allergy Reaction BACTRIM (SULFAMETHOXAZOLE-TRIMET H*11/28/2022 4 - Hives HYDROCODONE 08/02/2020 9 - Itching PENICILLINS 07/07/2006 14 - Other: See Comments Comments: hives VALIUM (DIAZEPAM) 11/02/2013 14 - Other: See Comments Comments: cross reaction with alcohol addiction Date Reviewed: 01/13/2025 Reviewed by: Soila Easton APRN.LEGAL EXECUTIVE ASSISTANT - Fully Assessed Reason for Visit: Orders [...] stress female [N39.3] 11/24/2014 HPV test positive [[id number]] 11/24/2014 Alcohol dependence in remission (HCC) [F10.21] 07/10/2015 11/02/2018 Pulm (more content not included)... [facility] GRACIE BANUELOS ([id number]) 1965 F Date Time Provider Department 03/06/25 RAISA JIMENEZ During your visit today, we recorded the following information about you: Allergies As of Date: 03/06/2025 Noted Allergy Reaction BACTRIM (SULFAMETHOXAZOLE-TRIMET H*11/28/2022 4 - Hives HYDROCODONE 08/02/2020 9 - Itching PENICILLINS 07/07/2006 14 - Other: See Comments Comments: hives VALIUM (DIAZEPAM) 11/02/2013 14 - Other: See Comments Comments: cross reaction with alcohol addiction Date Reviewed: 01/13/2025 Reviewed by: Soila Easton APRN.LEGAL EXECUTIVE ASSISTANT - Fully Assessed Reason for Visit: Patient Question [7507] Prescriptions as of 03/06/2025 - gabapentin (NEURONTIN) [...] stress female [N39.3] 11/24/2014 HPV test positive [[id number]] 11/24/2014 Alcohol dependence in remission (HCC) [F10.21] [...] Encounter Status:Closed by RAISA JIMENEZ on 03/06/25 [facility] IGORN Telephone (GGENMN) -------- GRACIE BANUELOS ([id number]) 1965 F Date Time Provider Department 03/06/25 CAITLIN OBRIEN GGENMN During your visit today, we recorded the following information about you: Caitlin Obrien RN 03/06/2025 11:30 AM Signed Attempted to reach patient to answer he questions from call this morning, no answer. VM left to call the office back. Allergies As of Date: 03/06/2025 Noted Allergy Reaction BACTRIM (SULFAMETHOXAZOLE-TRIMET H*11/28/2022 4 - Hives HYDROCODONE 08/02/2020 9 - Itching PENICILLINS 07/07/2006 14 - Other: See Comments Comments: hives VALIUM (DIAZEPAM) 11/02/2013 14 - Other: See Comments Comments: cross reaction with alcohol addiction Date Reviewed: 01/13/2025 Reviewed by: Soila Easton APRN.LEGAL EXECUTIVE ASSISTANT - Fully Assessed Prescriptions as of 03/06/2025 [...] stress female [N39.3] 11/24/2014 HPV test positive [[id number]] 11/24/2014 Alcohol dependence in remission (HCC) [F10.21] [...] Encounter Status:Closed by CAITLIN OBRIEN on 03/06/25 [facility] CNPN Telephone (GASTMN) -------- GRACIE BANUELOS ([id number]) 1965 F Date Time Provider Department 03/06/25 [facility] During your visit today, we recorded the following information about you: Jeffery, Isis 03/06/2025 9:10 AM Signed Gracie calling #[phone] Patient is calling regarding wanting to speak [...] of Date: 03/06/2025 Noted Allergy Reaction BACTRIM (SULFAMETHOXAZOLE-TRIMET H*11/28/2022 4 - Hives HYDROCODONE 08/02/2020 9 - Itching PENICILLINS 07/07/2006 14 - Other: See Comments Comments: hives VALIUM (DIAZEPAM) 11/02/2013 14 - Other: See Comments Comments: cross reaction with alcohol addiction Date Reviewed: 01/13/2025 Reviewed by: Soila Easton APRN.[facility] - Fully Assessed Reason for Visit: Patient Question [8188] Cmt: Questions Prior to ERCP Prescriptions as [...] stress female [N39.3] 11/24/2014 HPV test positive [[id number]] 11/24/2014 Alcohol dependence in remission (HCC) [F10.21] [...] of co (more content not included)... Normal [facility] NURSING PROGon 03-03-2025 NURSING PROG HNO ID: [id number] Author: JAELYN KOTHARI RN Service: ? Author Type: Registered Nurse Type: Nursing Progress Note Filed: 03/03/2025 09:48 Note Text: Attempted to reach the patient at the contact number that they provided [phone] (home) . Unable to speak with patient so without identifying the patient the following information was left on their voice mail: Date of procedure, location and report time A message was left informing the patient/patient event representative they must have a responsible adult [...] Number to call with questions or concerns [phone] Number to call to cancel their procedure [phone] Jaelyn Kothari RN Normal [facility] Abdomen/Pelvis W IV Cont ONL Yon 02-26-2025 Abdomen/Pelvis W IV Cont ONLY Normal [facility] Absolute lymphocyte countOrd ered By: Katina Price on 02-26-2025 Lymphocytes Auto (Unsp spec) [#/Vol] 2.50 10*3/uL 0.83-4.51 [facility] Anion gap in Serum or Plasma Ordered By: Katina Price on 02-26-2025 Anion gap [Moles/Vol] 11 mmol/L 5-15 [facility] Automated lymphocyte count a s percentage of total leukocytesOrdered By: Katina Price on 02-26-2025 Lymphocytes/100 WBC Auto (Unsp spec) 20.2 % 19-41 [facility] BUN/creatinine ratioOrdered By: Katina Price on 02-26-2025 Urea nitrogen/Creatinine [Mass ratio] 7.6 mg/mg Low 10-20 [facility] Basophil percentageOrdered B y: Katina Price on 02-26-2025 Basophils/100 WBC (Bld) 1.0 % 0-1 [facility] Bilirubin, totalOrdered By: Katina Price on 02-26-2025 Bilirubin [Mass/Vol] mg/dL 0.00-1.30 [facility] CBC W/Diff, Automatedon Absolute Lymph 2.50 X10 3/uL Normal 0.83-4.51 [facility] Comment on above: Performed By: #### L 501.2450, L100.0100, L500.4050 ####[facility] [address] [place], [address] Absolute Neut 7.9 X10 3/uL High 2.0-7.7 [facility] Comment on above: Performed By: #### L 501.2450, L100.0100, L500.4050 ####[facility] [address] [place], [address] Basophils/100 WBC (Bld) 1.0 % Normal 0-1 [facility] Comment on above: Performed By: #### L 501.2450, L100.0100, L500.4050 ####[facility] [address] [place], [address] Eosinophils/100 WBC (Bld) 6.1 % High 0-5 [facility] Comment on above: Performed By: #### L 501.2450, L100.0100, L500.4050 ####[facility] [address] [place], [address] Erythrocyte distribution width (RBC) [Ratio] 14.6 % Normal 11.6-14.6 [facility] Comment on above: Performed By: #### L 501.2450, L100.0100, L500.4050 ####[facility] [address] [place], [address] Hematocrit (Bld) [Volume fraction] 39.8 % Normal 37-47 [facility] Comment on above: Performed By: #### L 501.2450, L100.0100, L500.4050 ####[facility] [address] [place], [address] Hemoglobin (Bld) [Mass/Vol] 12.1 g/dL Normal 12.0-15.0 [facility] Comment on above: Performed By: #### L 501.2450, L100.0100, L500.4050 ####[facility] [address] [place], [address] IG% 0.900 Normal 0.0-0.9 [facility] Comment on above: Result Comment: IG% - Immature Granulocytes (promyelocytes, myelocytes andmetamyelocytes) > 1% indicates that a LEFT SHIFT is Present. Performed By: #### L 501.2450, L100.0100, L500.4050 ####[facility] [address] [place], [address] Lymphocytes/100 WBC (Bld) 20.2 % Normal 19-41 [facility] Comment on above: Performed By: #### L 501.2450, L100.0100, L500.4050 ####[facility] [address] [place], [address] MCH (RBC) [Entitic mass] 26.8 pg Low 27.0-32.0 [facility] Comment on above: Performed By: #### L 501.2450, L100.0100, L500.4050 ####[facility] [address] [place], [address] MCHC (RBC) [Mass/Vol] 30.4 g/dL Low 32-36 [facility] Comment on above: Performed By: #### L 501.2450, L100.0100, L500.4050 ####[facility] [address] [place], [address] MCV (RBC) [Entitic vol] 88.2 fL Normal 81-99 [facility] Comment on above: Performed By: #### L 501.2450, L100.0100, L500.4050 ####[facility] [address] [place], [address] Monocytes/100 WBC (Bld) 8.2 % Normal 0-10 [facility] Comment on above: Performed By: #### L 501.2450, L100.0100, L500.4050 ####[facility] [address] [place], [address] Neutrophils/100 WBC (Bld) 63.6 % Normal 47-70 [facility] Comment on above: Performed By: #### L 501.2450, L100.0100, L500.4050 ####[facility] [address] [place], [address] Nucleated RBC (Bld) [#/Vol] 0 10*3/uL Normal 0-5 [facility] Comment on above: Performed By: #### L 501.2450, L100.0100, L500.4050 ####[facility] [address] [place], [address] Platelet mean volume (Bld) [Entitic vol] 10.6 fL Normal 6.2-12.0 [facility] Comment on above: Performed By: #### L 501.2450, L100.0100, L500.4050 ####[facility] [address] [place], [address] Platelets (Bld) [#/Vol] 293 10*3/uL Normal 150-450 [facility] Comment on above: Performed By: #### L 501.2450, L100.0100, L500.4050 ####[facility] [address] [place], [address] RBC (Bld) [#/Vol] 4.51 10*6/uL Normal 4.2-5.4 [facility] Comment on above: Performed By: #### L 501.2450, L100.0100, L500.4050 ####[facility] [address] [place], [address] RDW SD 46.9 fl High 35.1-43.9 [facility] Comment on above: Performed By: #### L 501.2450, L100.0100, L500.4050 ####[facility] [address] [place], [address] WBC (Bld) [#/Vol] 12.4 10*3/uL High 4.4-11.0 [facility] Comment on above: Performed By: #### L 501.2450, L100.0100, L500.4050 ####[facility] [address] [place], [address] Carbon dioxide, total [Moles /volume] in Central venous bloodOrdered By: Katina Price on 02-26-2025 CO2 [Moles/Vol] 30.6 mmol/L 21.0-32.0 [facility] Chloride assayOrdered By: Afia Price on 02-26-2025 Chloride [Moles/Vol] 99 mmol/L 98-108 [facility] Comprehensive Metabolic Prof ilon 02-26-2025 Albumin [Mass/Vol] 4.1 g/dL Normal 3.4-4.8 [facility] Comment on above: Performed By: #### L 501.2450, L100.0100, L500.4050 ####[facility] [address] [place], [address] Albumin/Globulin [Mass ratio] 1.3 {ratio} Normal 0.9-2.4 [facility] Comment on above: Performed By: #### L 501.2450, L100.0100, L500.4050 ####[facility] [address] [place], [address] ALK PHOS 113 U/L High 35-104 [facility] Comment on above: Performed By: #### L 501.2450, L100.0100, L500.4050 ####[facility] [address] [place], [address] ALT [Catalytic activity/Vol] 10 U/L Normal <=34 [facility] Comment on above: Performed By: #### L 501.2450, L100.0100, L500.4050 ####[facility] [address] [place], [address] AST [Catalytic activity/Vol] 17 U/L Normal <=31 [facility] Comment on above: Performed By: #### L 501.2450, L100.0100, L500.4050 ####[facility] [address] [place], [address] BUN/CRE 7.6 RATIO Low 10-20 [facility] Comment on above: Performed By: #### L 501.2450, L100.0100, L500.4050 ####[facility] [address] [place], [address] Calcium [Mass/Vol] 9.5 mg/dL Normal 7.6-11.0 [facility] Comment on above: Performed By: #### L 501.2450, L100.0100, L500.4050 ####[facility] [address] [place], [address] Chloride [Moles/Vol] 99 mmol/L Normal 98-108 [facility] Comment on above: Performed By: #### L 501.2450, L100.0100, L500.4050 ####[facility] [address] [place], [address] CO2 [Moles/Vol] 30.6 mmol/L Normal 21.0-32.0 [facility] Comment on above: Performed By: #### L 501.2450, L100.0100, L500.4050 ####[facility] [address] [place], [address] Creatinine [Mass/Vol] 0.82 mg/dL Normal 0.70-1.20 [facility] Comment on above: Performed By: #### L 501.2450, L100.0100, L500.4050 ####[facility] [address] [place], [address] ECRCL 59.60 ml/min Normal 50-250 [facility] Comment on above: Performed By: #### L 501.2450, L100.0100, L500.4050 ####[facility] [address] [place], [address] GAP 11 Normal 5-15 [facility] Comment on above: Performed By: #### L 501.2450, L100.0100, L500.4050 ####[facility] [address] [place], [address] GFR/1.73 sq M.predicted among non-blacks MDRD (S/P/Bld) [Vol rate/Area] 81 mL/min/{1.73_m2} Normal >60 [facility] Comment on above: Result Comment: mL/m in/1.73m2 CKD-EPI Creatinine Equation (2020) Performed By: #### L 501.2450, L100.0100, L500.4050 ####[facility] [address] [place], [address] Globulin (S) [Mass/Vol] 3.1 g/dL Normal 2.2-4.2 [facility] Comment on above: Performed By: #### L 501.2450, L100.0100, L500.4050 ####[facility] [address] [place], [address] Glucose [Mass/Vol] 83 mg/dL Normal 70-99 [facility] Comment on above: Performed By: #### L 501.2450, L100.0100, L500.4050 ####[facility] [address] [place], [address] Potassium [Moles/Vol] 4.1 mmol/L Normal 3.3-5.1 [facility] Comment on above: Performed By: #### L 501.2450, L100.0100, L500.4050 ####[facility] [address] [place], [address] Sodium [Moles/Vol] 140 mmol/L Normal 133-145 [facility] Comment on above: Performed By: #### L 501.2450, L100.0100, L500.4050 ####[facility] [address] [place], [address] T BILI < 0.15 Normal 0.00-1.30 [facility] Comment on above: Performed By: #### L 501.2450, L100.0100, L500.4050 ####[facility] [address] [place], [address] T PROT 7.2 g/dL Normal 5.9-8.4 [facility] Comment on above: Performed By: #### L 501.2450, L100.0100, L500.4050 ####[facility] [address] [place], [address] Urea nitrogen [Mass/Vol] 6 mg/dL Normal 4-19 [facility] Comment on above: Performed By: #### L 501.2450, L100.0100, L500.4050 ####[facility] [address] [place], [address] Emergency Department Summary on 02-26-2025 Emergency Department Summary Normal [facility] Eosinophil percentageOrdered By: Katina Price on 02-26-2025 Eosinophils/100 WBC (Bld) 6.1 % High 0-5 [facility] Erythrocyte distribution wid th ratioOrdered By: Katnia Price on 02-26-2025 Erythrocyte distribution width (RBC) [Ratio] 14.6 % 11.6-14.6 [facility] Erythrocyte distribution wid th standard deviationOrdered By: Katina Price on 02-26-2025 Erythrocyte distribution width (RBC) [Ratio] 46.9 fl High 35.1-43.9 [facility] Glomerular filtration rate ( GFR) estimation/1.73 sq m using serum, plasma, or whole bOrdered By: Katina Price on 02-26-2025 GFR/1.73 sq M.predicted among non-blacks MDRD (S/P/Bld) [Vol rate/Area] 81 mL/min/{1.73_m2} >60 [facility] Hematocrit Auto (Bld) [Volum e fraction]Ordered By: Katina Price on 02-26-2025 Hematocrit (Bld) [Volume fraction] 39.8 % 37-47 [facility] Hemoglobin measurementOrdere d By: Katina Price on 02-26-2025 Hemoglobin (Bld) [Mass/Vol] 12.1 g/dL 12.0-15.0 [facility] Immature granulocytes/100 WB C Auto (Bld)Ordered By: Katina Price on 02-26-2025 Immature granulocytes/100 WBC (Bld) 0.900 % 0.0-0.9 [facility] Lipaseon 02-26-2025 Lipase [Catalytic activity/Vol] 45 U/L Normal 13-75 [facility] Comment on above: Result Comment: Jenny capellan note:LIPASE revised reference range effective 23.New Lipase methodology. Expected to produce lower valuesthan the previous assay method.NEW Reference Range: 13 - 75 U/L Performed By: #### L 501.2450, L100.0100, L500.4050 ####[facility] [address] [place], [place], [id number] MCV (mean corpuscular volume ) determinationOrdered By: Katina Price on 02-26-2025 MCV (RBC) [Entitic vol] 88.2 fL 81-99 [facility] Mean corpuscular hemoglobin (MCH) determinationOrdered By: Katina Price on 02-26-2025 MCH (RBC) [Entitic mass] 26.8 pg Low 27.0-32.0 [facility] Monocyte percentageOrdered B y: Katina Price on 02-26-2025 Monocytes/100 WBC (Bld) 8.2 % 0-10 [facility] Neutrophil percentageOrdered By: Katina Price on 02-26-2025 Neutrophils/100 WBC (Bld) 63.6 % 47-70 [facility] No Panel InformationOrdered By: Katina Price on 02-26-2025 17 U/L <32 [facility] Platelet countOrdered By: Afia Price on 02-26-2025 Platelets (Bld) [#/Vol] 293 10*3/uL 150-450 [facility] Potassium measurement (mass/ volume)Ordered By: Katina Price on 02-26-2025 Potassium (Unsp spec) [Mass/Vol] 4.1 mmol/L 3.3-5.1 [facility] RBC Auto (Bld) [#/Vol]Ordere d By: Katina Price on 02-26-2025 RBC (Bld) [#/Vol] 4.51 10*6/uL 4.2-5.4 [facility] Serum creatinine measurement (mass/volume)Ordered By: Katina Price on 02-26-2025 Creatinine [Mass/Vol] 0.82 mg/dL 0.70-1.20 [facility] Serum globulin measurementOr dered By: Katina Price on 02-26-2025 Globulin (S) [Mass/Vol] 3.1 g/dL 2.2-4.2 [facility] Serum glucose measurement (m ass/volume)Ordered By: Katina Price on 02-26-2025 Glucose [Mass/Vol] 83 mg/dL 70-99 [facility] Serum or plasma alanine pimentel otransferase (ALT) measurementOrdered By: Katina Price on 02-26-2025 ALT [Catalytic activity/Vol] 10 U/L <35 [facility] Serum or plasma albumin esthela urement (mass/volume)Ordered By: Katina Price on 02-26-2025 Albumin [Mass/Vol] 4.1 g/dL 3.4-4.8 [facility] Serum or plasma albumin/glob ulin mass ratioOrdered By: Katina Price on 02-26-2025 Albumin/Globulin [Mass ratio] 1.3 {ratio} 0.9-2.4 [facility] Serum or plasma alkaline jose sphatase measurementOrdered By: Katina Price on 02-26-2025 ALP [Catalytic activity/Vol] 113 U/L High 35-104 [facility] Serum or plasma calcium esthela urement (mass/volume)Ordered By: Katina Price on 02-26-2025 Calcium [Mass/Vol] 9.5 mg/dL 7.6-11.0 [facility] Serum or plasma urea nitroge n measurement (mass/volume)Ordered By: Katina Price on 02-26-2025 Urea nitrogen [Mass/Vol] 6 mg/dL 4-19 [facility] Sodium levelOrdered By: Katina Price on 02-26-2025 Sodium [Moles/Vol] 140 mmol/L 133-145 [facility] Total proteinOrdered By: Valeria Price on 02-26-2025 Protein [Mass/Vol] 7.2 g/dL 5.9-8.4 [facility] White blood cell (WBC) count Ordered By: Katina Price on 02-26-2025 WBC (Bld) [#/Vol] 12.4 10*3/uL High 4.4-11.0 [facility] Pulmonary Visit Reporton Pulmonary Visit Report Normal [facility] 12 Lead EKGon 01-27-2025 12 Lead EKG Normal [facility] Absolute lymphocyte countOrd ered By: Franco Inman on 01-27-2025 Lymphocytes Auto (Unsp spec) [#/Vol] 2.62 10*3/uL 0.83-4.51 [facility] Anion gap in Serum or Plasma Ordered By: Franco Inman on 01-27-2025 Anion gap [Moles/Vol] 11 mmol/L 5-15 [facility] Automated blood erythrocyte countOrdered By: Franco Inman on 01-27-2025 RBC (Bld) [#/Vol] 4.32 10*6/uL Normal 4.2-5.4 [facility] Comment on above: Performed By: #### L 100.0100 ####[facility] [address] [place], [place], [phone]) Automated blood hematocrit ( percentage)Ordered By: Franco Inman on 01-27-2025 Hematocrit (Bld) [Volume fraction] 37.5 % Normal 37-47 [facility] Comment on above: Performed By: #### L 100.0100 ####[facility] [address] [place], [place], [phone]) Automated lymphocyte count a s percentage of total leukocytesOrdered By: Franco Inman on 01-27-2025 Lymphocytes/100 WBC Auto (Unsp spec) 16.8 % Low 19-41 [facility] BUN/creatinine ratioOrdered By: Franco Inman on 01-27-2025 Urea nitrogen/Creatinine [Mass ratio] 7.1 mg/mg Low 10-20 [facility] Basophil percentageOrdered B y: Franco Inman on 01-27-2025 Basophils/100 WBC (Bld) 1.0 % Normal 0-1 [facility] Comment on above: Performed By: #### L 100.0100 ####[facility] [address] [place], [place], [id number] Bilirubin, totalOrdered By: Franco Inman on 01-27-2025 Bilirubin [Mass/Vol] mg/dL 0.00-1.30 [facility] CBC W/Diff, Automatedon Absolute Lymph 2.62 X10 3/uL Normal 0.83-4.51 [facility] Comment on above: Performed By: #### L 100.0100 ####[facility] [address] [place], [address] Absolute Neut 11.0 X10 3/uL High 2.0-7.7 [facility] Comment on above: Performed By: #### L 100.0100 ####[facility] [address] [place], [address] IG% 0.800 Normal 0.0-0.9 [facility] Comment on above: Result Comment: IG% - Immature Granulocytes (promyelocytes, myelocytes andmetamyelocytes) > 1% indicates that a LEFT SHIFT is Present. Performed By: #### L 100.0100 ####[facility] [address] [place], [address] Lymphocytes/100 WBC (Bld) 16.8 % Low 19-41 [facility] Comment on above: Performed By: #### L 100.0100 ####[facility] [address] [place], [address] MCHC (RBC) [Mass/Vol] 30.7 g/dL Low 32-36 [facility] Comment on above: Performed By: #### L 100.0100 ####[facility] [address] [place], [address] Nucleated RBC (Bld) [#/Vol] 0 10*3/uL Normal 0-5 [facility] Comment on above: Performed By: #### L 100.0100 ####[facility] [address] [place], [address] Platelet mean volume (Bld) [Entitic vol] 9.8 fL Normal 6.2-12.0 [facility] Comment on above: Performed By: #### L 100.0100 ####[facility] [address] [place], [address] RDW SD 46.0 fl High 35.1-43.9 [facility] Comment on above: Performed By: #### L 100.0100 ####[facility] [address] [place], [address] Carbon dioxide, total [Moles /volume] in Central venous bloodOrdered By: Franco Inman on 01-27-2025 CO2 [Moles/Vol] 27.5 mmol/L Normal 21.0-32.0 [facility] Comment on above: Performed By: #### L 500.4050, L501.2450 ####[facility] [address] [place], [address] Chest PA and Lateralon 01-27 Chest PA and Lateral Normal [facility] Chloride assayOrdered By: Leo Inman on 01-27-2025 Chloride [Moles/Vol] 98 mmol/L Normal 98-108 [facility] Comment on above: Performed By: #### L 500.4050, L501.2450 ####[facility] [address] [place], [address] Comprehensive Metabolic Prof ilon 01-27-2025 ALK PHOS 108 U/L High 35-104 [facility] Comment on above: Performed By: #### L 500.4050, L501.2450 ####[facility] [address] [place], [address] AST [Catalytic activity/Vol] 19 U/L Normal <=31 [facility] Comment on above: Performed By: #### L 500.4050, L501.2450 ####[facility] [address] [place], [address] BUN/CRE 7.1 RATIO Low 10-20 [facility] Comment on above: Performed By: #### L 500.4050, L501.2450 ####[facility] [address] [place], [address] ECRCL 65.16 ml/min Normal 50-250 [facility] Comment on above: Performed By: #### L 500.4050, L501.2450 ####[facility] [address] [place], [address] GAP 11 Normal 5-15 [facility] Comment on above: Performed By: #### L 500.4050, L501.2450 ####[facility] [address] [place], [address] Potassium [Moles/Vol] 4.3 mmol/L Normal 3.3-5.1 [facility] Comment on above: Performed By: #### L 500.4050, L501.2450 ####[facility] [address] [place], [address] T BILI < 0.15 Normal 0.00-1.30 [facility] Comment on above: Performed By: #### L 500.4050, L501.2450 ####[facility] [address] [place], [address] T PROT 7.1 g/dL Normal 5.9-8.4 [facility] Comment on above: Performed By: #### L 500.4050, L501.2450 ####[facility] [address] [place], [address] Emergency Department Summary on 01-27-2025 Emergency Department Summary Normal [facility] Eosinophil percentageOrdered By: Franco Inman on 01-27-2025 Eosinophils/100 WBC (Bld) 5.3 % High 0-5 [facility] Comment on above: Performed By: #### L 100.0100 ####[facility] [address] [place], [address] Erythrocyte distribution wid th ratioOrdered By: Franco Inman on 01-27-2025 Erythrocyte distribution width (RBC) [Ratio] 14.5 % Normal 11.6-14.6 [facility] Comment on above: Performed By: #### L 100.0100 ####[facility] [address] [place], [address] Erythrocyte distribution wid th standard deviationOrdered By: Franco Inman on 01-27-2025 Erythrocyte distribution width (RBC) [Ratio] 46.0 fl High 35.1-43.9 [facility] Glomerular filtration rate ( GFR) estimation/1.73 sq m using serum, plasma, or whole bOrdered By: Franco Inman on 01-27-2025 GFR/1.73 sq M.predicted among non-blacks MDRD (S/P/Bld) [Vol rate/Area] 90 mL/min/{1.73_m2} Normal >60 [facility] Comment on above: Result Comment: mL/m in/1.73m2 CKD-EPI Creatinine Equation (2020) Performed By: #### L 500.4050, L501.2450 ####[facility] [address] [place], [place], [id number] Hemoglobin measurementOrdere d By: Franco Inman on 01-27-2025 Hemoglobin (Bld) [Mass/Vol] 11.5 g/dL Low 12.0-15.0 [facility] Comment on above: Performed By: #### L 100.0100 ####[facility] [address] [place], [address] Immature granulocytes/100 WB C Auto (Bld)Ordered By: Franco Inman on 01-27-2025 Immature granulocytes/100 WBC (Bld) 0.800 % 0.0-0.9 [facility] Lipaseon 01-27-2025 Lipase [Catalytic activity/Vol] 32 U/L Normal 13-75 [facility] Comment on above: Result Comment: Jenny capellan note:LIPASE revised reference range effective 23.New Lipase methodology. Expected to produce lower valuesthan the previous assay method.NEW Reference Range: 13 - 75 U/L Performed By: #### L 500.4050, L501.2450 ####[facility] [address] [place], [address] MCV (mean corpuscular volume ) determinationOrdered By: Franco Inman on 01-27-2025 MCV (RBC) [Entitic vol] 86.8 fL Normal 81-99 [facility] Comment on above: Performed By: #### L 100.0100 ####[facility] [address] [place], [address] Mean corpuscular hemoglobin (MCH) determinationOrdered By: Franco Inman on 01-27-2025 MCH (RBC) [Entitic mass] 26.6 pg Low 27.0-32.0 [facility] Comment on above: Performed By: #### L 100.0100 ####[facility] [address] [place], [address] Monocyte percentageOrdered B y: Franco Inman on 01-27-2025 Monocytes/100 WBC (Bld) 5.9 % Normal 0-10 [facility] Comment on above: Performed By: #### L 100.0100 ####[facility] [address] [place], [address] Neutrophil percentageOrdered By: Franco Inman on 01-27-2025 Neutrophils/100 WBC (Bld) 70.2 % High 47-70 [facility] Comment on above: Performed By: #### L 100.0100 ####[facility] [address] [place], [address] No Panel InformationOrdered By: Franco Inman on 01-27-2025 19 U/L <32 [facility] Platelet countOrdered By: Leo Inman on 01-27-2025 Platelets (Bld) [#/Vol] 377 10*3/uL Normal 150-450 [facility] Comment on above: Performed By: #### L 100.0100 ####[facility] [address] [place], [address] Potassium measurement (mass/ volume)Ordered By: Franco Inman on 01-27-2025 Potassium (Unsp spec) [Mass/Vol] 4.3 mmol/L 3.3-5.1 [facility] Serum creatinine measurement (mass/volume)Ordered By: Franco Inman on 01-27-2025 Creatinine [Mass/Vol] 0.75 mg/dL Normal 0.70-1.20 [facility] Comment on above: Performed By: #### L 500.4050, L501.2450 ####[facility] [address] [place], [address] Serum globulin measurementOr dered By: Franco Inman on 05-02-2025 Globulin (S) [Mass/Vol] 3.1 g/dL Normal 2.2-4.2 [facility] Comment on above: Performed By: #### L 500.4050, L501.2450 ####[facility] [address] [place], [address] Serum glucose measurement (m ass/volume)Ordered By: Franco Inman on 01-27-2025 Glucose [Mass/Vol] 130 mg/dL High 70-99 [facility] Comment on above: Performed By: #### L 500.4050, L501.2450 ####[facility] [address] [place], [address] Serum or plasma alanine pimentel otransferase (ALT) measurementOrdered By: Franco Inman on 01-27-2025 ALT [Catalytic activity/Vol] 13 U/L Normal <=34 [facility] Comment on above: Performed By: #### L 500.4050, L501.2450 ####[facility] [address] [place], [address] Serum or plasma albumin esthela urement (mass/volume)Ordered By: Franco Inman on 01-27-2025 Albumin [Mass/Vol] 4.0 g/dL Normal 3.4-4.8 [facility] Comment on above: Performed By: #### L 500.4050, L501.2450 ####[facility] [address] [place], [address] Serum or plasma albumin/glob ulin mass ratioOrdered By: Franco Inman on 01-27-2025 Albumin/Globulin [Mass ratio] 1.3 {ratio} Normal 0.9-2.4 [facility] Comment on above: Performed By: #### L 500.4050, L501.2450 ####[facility] [address] [place], [address] Serum or plasma alkaline jose sphatase measurementOrdered By: Franco Inman on 01-27-2025 ALP [Catalytic activity/Vol] 108 U/L High 35-104 [facility] Serum or plasma calcium esthela urement (mass/volume)Ordered By: Franco Inman on 01-27-2025 Calcium [Mass/Vol] 9.2 mg/dL Normal 7.6-11.0 [facility] Comment on above: Performed By: #### L 500.4050, L501.2450 ####[facility] [address] [place], [address] Serum or plasma urea nitroge n measurement (mass/volume)Ordered By: Franco Inman on 01-27-2025 Urea nitrogen [Mass/Vol] 5 mg/dL Normal 4-19 [facility] Comment on above: Performed By: #### L 500.4050, L501.2450 ####[facility] [address] [place], [address] Sodium levelOrdered By: Franco Inman on 01-27-2025 Sodium [Moles/Vol] 137 mmol/L Normal 133-145 [facility] Comment on above: Performed By: #### L 500.4050, L501.2450 ####[facility] [address] [place], [address] Total proteinOrdered By: Ezra Inman on 01-27-2025 Protein [Mass/Vol] 7.1 g/dL 5.9-8.4 [facility] White blood cell (WBC) count Ordered By: Franco Inman on 01-27-2025 WBC (Bld) [#/Vol] 15.6 10*3/uL High 4.4-11.0 [facility] Comment on above: Performed By: #### L 100.0100 ####[facility] [address] [place], [place], [address] CNOVon 01-13-2025 CNOV Office Visit (INTMWS ) -------- GRACIE BANUELOS ([id number]) 1965 F Date Time Provider Department 01/13/25 10:40 AM SOILA EASTON During your visit today, we recorded the following information about you: Pulse Respiration Blood pressure Weight 88/minute 16/minute 108/60 62.6 kg Soila Easton APRN.LEGAL EXECUTIVE ASSISTANT 01/13/2025 11:33 AM Signed CC: Patient presents with: Recheck: Follow up HPI Gracie Banuelos is a 59 year old female who presents today for gout concerns. Recording using [employer] software for draft documentation of the visit was discussed with the patient/authorized event representative; all questions welcomed and answered. Patient/authorized event representative agreed to proceed Gout: - Under [...] of months ago asa ordered by her food technology teacher. - Denies redness or red streaking; [...] will be in the 90s. States her lathe operator is aware of this. - Concerns about potential need for ventilator post-surgery. - Under care of Dr. Sebastian and Ani at [facility]. - No recent infections, fever, [...] Stage 3 severe COPD by GOLD classification ([facility]) 2018 Tobacco use greater than [...] 06/14/2021 TUBAL LIGATION HX 1986 ALLERGIES Bactrim [Sulfamethoxazole-Trimet hoprim], Hydrocodone, Penicillins, and Valium [Diazepam] MEDICATIONS colchicine [...] for nausea/ (more content not included)... Normal [facility] CBC W/Diff, Automatedon 12-27 PATH REV Reviewed Normal [facility] Comment on above: Result Comment: SEE REPORT IN PATIENT'S EMR AMENDED REPORT 01/11/25 1354 PATH REV previously reported as: May foll Performed By: #### L 100.0100, L500.2500 ####[facility] [address] [place], [place], [id number] PATH REV Reviewed [facility] Comment on above: Result Comment: SEE REPORT IN PATIENT'S EMR AMENDED REPORT 01/11/25 1352 PATH REV previously reported as: May foll Performed By: #### L 100.0100, L500.2500 ####[facility] [address] [place], [place], [id number] Performed By: #### L 100.0100 ####[facility] [address] [place], [place], [address] PATH REV Reviewed [facility] Comment on above: Result Comment: SEE REPORT IN PATIENT'S EMR AMENDED REPORT 01/11/25 1342 PATH REV previously reported as: May foll Performed By: #### L 503.7505, L500.2500, L100.0100, L509.7001 ####[facility] [address] [place], [place], [id number] Matteo 01-09-2025 [facility] Telephone (INTMWS) -------- GRACIE BANUELOS ([id number]) 1965 F Date Time Provider Department 01/09/25 MISBAH ELKINS During your visit today, we recorded the following information about you: Marge Perkins RN 01/09/2025 7:18 PM Signed Pt called in and reports she can get pull ups paid for through [employer]. She states the provider jst has to [...] outside her home. Sent rx to [facility]. FYI: Pt scheduled appt tomorrow with Soila Easton to discuss multiple concerns. CHERELLE Jones Amanda, RN 01/12/2025 1:15 PM Signed Pt has appointment with Soila Easton Computer Methods Analyst on 01/14/24. Allergies As of Date: 01/09/2025 Noted Allergy Reaction BACTRIM (SULFAMETHOXAZOLE-TRIMET H*11/28/2022 4 - Hives HYDROCODONE 08/02/2020 9 - [...] stress female [N39.3] 11/24/2014 HPV test positive [[id number]] 11/24/2014 Alcohol depe (more content not included)... Normal [facility] CBC W/Diff, Automatedon 04-0 PATH REV N/A Normal [facility] Comment on above: Result Comment: AMENDED REPORT 01/04/252142 PATH REV previously reported as: January Performed By: #### L 501.2450, L500.4050, L100.0100 ####[facility] [address] [place], [address] 12 Lead EKGon 01-01-2025 12 Lead EKG Normal [facility] ALP [Catalytic activity/Vol] Ordered By: Leandro Sanchez on 01-01-2025 Serum or plasma alkaline phosphatase measurement 111 U/L High 35-104 [facility] ALT [Catalytic activity/Vol] Ordered By: Leandro Sanchez on 01-01-2025 Serum or plasma alanine aminotransferase (ALT) measurement 8 U/L <35 [facility] Absolute lymphocyte countOrd ered By: Leandro Sanchez on 01-01-2025 Lymphocytes Auto (Unsp spec) [#/Vol] 3.90 10*3/uL 0.83-4.51 [facility] Absolute neutrophil countOrd ered By: Leandro Sanchez on 01-01-2025 Absolute neutrophil count 8.9 X10^3/uL High 2.0-7.7 [facility] Albumin [Mass/Vol]Ordered By : Leandro Sanchez on 01-01-2025 Serum or plasma albumin measurement (mass/volume) 3.7 g/dL 3.4-4.8 [facility] Albumin/Globulin [Mass ratio ]Ordered By: Leandro Sanchez on 01-01-2025 Serum or plasma albumin/globulin mass ratio 1.2 RATIO 0.9-2.4 [facility] Anion gap [Moles/Vol]Ordered By: Leandro Sanchez on 01-01-2025 Anion gap in Serum or Plasma 11 5-15 [facility] Anion gap in Serum or Plasma Ordered By: Leandro Sanchez on 01-01-2025 Anion gap [Moles/Vol] 11 mmol/L 5-15 [facility] BUN/creatinine ratioOrdered By: Leandro Sanchez on 01-01-2025 Urea nitrogen/Creatinine [Mass ratio] 8.7 mg/mg Low 10-20 [facility] BUN/creatinine ratio 8.7 RATIO Low 10-20 [facility] Bilirubin, totalOrdered By: Leandro Sanchez on 01-01-2025 Bilirubin [Mass/Vol] mg/dL 0.00-1.30 [facility] Bilirubin, total < 0.15 mg/dL 0.00-1.30 [facility] Blood basophils/100 leukocyt esOrdered By: Leandro Sanchez on 01-01-2025 Basophils/100 WBC (Bld) 1 % 0-1 [facility] Blood eosinophils/100 leukoc ytesOrdered By: Leandro Sanchez on 01-01-2025 Eosinophils/100 WBC (Bld) 6 % High 0-5 [facility] Blood lymphocytes/100 leukoc ytesOrdered By: Leandro Sanchez on 01-01-2025 Lymphocytes/100 WBC (Bld) 24 % 19-41 [facility] Blood metamyelocytes/100 scott kocytesOrdered By: Leandro Sanchez on 01-01-2025 Metamyelocytes/100 WBC (Bld) 7 % High 0-1 [facility] Blood metamyelocytes/100 leukocytes 7 % 0-10 [facility] Blood monocytes/100 leukocyt esOrdered By: Leandro Sanchez on 01-01-2025 Monocytes/100 WBC (Bld) 7 % 0-10 [facility] Blood segmented neutrophils/ 100 leukocytesOrdered By: Leandro Sanchez on 01-01-2025 Segmented neutrophils/100 WBC (Bld) 54 % 47-70 [facility] CBC W/Diff, Automatedon PATH REV N/A Normal [facility] Comment on above: Result Comment: AMENDED REPORT 01/01/251802 PATH REV previously reported as: January ana maría Performed By: #### L 500.2500, L100.0100 ####[facility] [address] [place], [address] Calcium [Mass/Vol]Ordered By : Leandro Sanchez on 01-01-2025 Serum or plasma calcium measurement (mass/volume) 9.0 mg/dL 7.6-11.0 [facility] Carbon dioxide, total [Moles /volume] in Central venous bloodOrdered By: Leandro Sanchez on 01-01-2025 CO2 [Moles/Vol] 28.7 mmol/L 21.0-32.0 [facility] Carbon dioxide, total [Moles/volume] in Central venous blood 28.7 mmol/L 21.0-32.0 [facility] Cells counted Molgen (Bld/Ti ss) [#]Ordered By: Leandro Sanchez on 01-01-2025 Total cell count 100 MANUAL DIFF [facility] Chest 1 View (Portable)on Chest 1 View (Portable) Normal [facility] Chloride assayOrdered By: Jose Sanchez on 01-01-2025 Chloride [Moles/Vol] 91 mmol/L Low 98-108 [facility] Chloride assay 91 mmol/L Low 98-108 [facility] Comprehensive Metabolic Prof ilon 01-01-2025 Albumin [Mass/Vol] 3.7 g/dL Normal 3.4-4.8 [facility] Comment on above: Performed By: #### L 501.2450, L500.4050, L100.0100 ####[facility] [address] [place], [address] Albumin/Globulin [Mass ratio] 1.2 {ratio} Normal 0.9-2.4 [facility] Comment on above: Performed By: #### L 501.2450, L500.4050, L100.0100 ####[facility] [address] [place], [address] ALK PHOS 111 U/L High 35-104 [facility] Comment on above: Performed By: #### L 501.2450, L500.4050, L100.0100 ####[facility] [address] [place], [address] ALT [Catalytic activity/Vol] 8 U/L Normal <=34 [facility] Comment on above: Performed By: #### L 501.2450, L500.4050, L100.0100 ####[facility] [address] [place], [address] AST [Catalytic activity/Vol] 13 U/L Normal <=31 [facility] Comment on above: Performed By: #### L 501.2450, L500.4050, L100.0100 ####[facility] [address] [place], [address] BUN/CRE 8.7 RATIO Low 10-20 [facility] Comment on above: Performed By: #### L 501.2450, L500.4050, L100.0100 ####[facility] [address] [place], [address] Calcium [Mass/Vol] 9.0 mg/dL Normal 7.6-11.0 [facility] Comment on above: Performed By: #### L 501.2450, L500.4050, L100.0100 ####[facility] [address] [place], [address] Chloride [Moles/Vol] 91 mmol/L Low 98-108 [facility] Comment on above: Performed By: #### L 501.2450, L500.4050, L100.0100 ####[facility] [address] [place], [address] CO2 [Moles/Vol] 28.7 mmol/L Normal 21.0-32.0 [facility] Comment on above: Performed By: #### L 501.2450, L500.4050, L100.0100 ####[facility] [address] [place], [address] Creatinine [Mass/Vol] 0.76 mg/dL Normal 0.70-1.20 [facility] Comment on above: Performed By: #### L 501.2450, L500.4050, L100.0100 ####[facility] [address] [place], [address] ECRCL 69.70 ml/min Normal 50-250 [facility] Comment on above: Performed By: #### L 501.2450, L500.4050, L100.0100 ####[facility] [address] [place], [address] GAP 11 Normal 5-15 [facility] Comment on above: Performed By: #### L 501.2450, L500.4050, L100.0100 ####[facility] [address] [place], [address] GFR/1.73 sq M.predicted among non-blacks MDRD (S/P/Bld) [Vol rate/Area] 89 mL/min/{1.73_m2} Normal >60 [facility] Comment on above: Result Comment: mL/m in/1.73m2 CKD-EPI Creatinine Equation (2020) Performed By: #### L 501.2450, L500.4050, L100.0100 ####[facility] [address] [place], [address] Globulin (S) [Mass/Vol] 3.2 g/dL Normal 2.2-4.2 [facility] Comment on above: Performed By: #### L 501.2450, L500.4050, L100.0100 ####[facility] [address] [place], [address] Glucose [Mass/Vol] 111 mg/dL High 70-99 [facility] Comment on above: Performed By: #### L 501.2450, L500.4050, L100.0100 ####[facility] [address] [place], [address] Potassium [Moles/Vol] 4.0 mmol/L Normal 3.3-5.1 [facility] Comment on above: Performed By: #### L 501.2450, L500.4050, L100.0100 ####[facility] [address] [place], [address] Sodium [Moles/Vol] 130 mmol/L Low 133-145 [facility] Comment on above: Performed By: #### L 501.2450, L500.4050, L100.0100 ####[facility] [address] [place], [address] T BILI < 0.15 Normal 0.00-1.30 [facility] Comment on above: Performed By: #### L 501.2450, L500.4050, L100.0100 ####[facility] [address] [place], [address] T PROT 6.9 g/dL Normal 5.9-8.4 [facility] Comment on above: Performed By: #### L 501.2450, L500.4050, L100.0100 ####[facility] [address] [place], [address] Urea nitrogen [Mass/Vol] 7 mg/dL Normal 4-19 [facility] Comment on above: Performed By: #### L 501.2450, L500.4050, L100.0100 ####[facility] [address] [place], [address] Creatinine [Mass/Vol]Ordered By: Leandro Sanchez on 01-01-2025 Serum creatinine measurement (mass/volume) 0.76 mg/dL 0.70-1.20 [facility] Emergency Department Summary on 01-01-2025 Emergency Department Summary Normal [facility] Eosinophils/100 WBC (Bld)Ord ered By: Leandro Sanchez on 01-01-2025 Blood eosinophils/100 leukocytes 6 % High 0-5 [facility] Erythrocyte distribution wid th (RBC) [Ratio]Ordered By: Leandro Sanchez on 01-01-2025 Erythrocyte distribution width ratio 15.2 % High 11.6-14.6 [facility] Erythrocyte distribution width standard deviation 47.7 fl High 35.1-43.9 [facility] Erythrocyte distribution wid th ratioOrdered By: Leandro Sanchez on 01-01-2025 Erythrocyte distribution width (RBC) [Ratio] 15.2 % High 11.6-14.6 [facility] Erythrocyte distribution wid th standard deviationOrdered By: Leandro Sanchez on 01-01-2025 Erythrocyte distribution width (RBC) [Ratio] 47.7 fl High 35.1-43.9 [facility] Estimation of creatinine binu aranceOrdered By: Leandro Sanchez on 01-01-2025 Estimation of creatinine clearance 69.70 ml/min 50-250 [facility] GFR/1.73 sq M.predicted gregory g non-blacks MDRD (S/P/Bld) [Vol rate/Area]Ordered By: Leandro Sanchez on 01-01-2025 Glomerular filtration rate (GFR) estimation/1.73 sq m using serum, plasma, or whole b 89 >60 [facility] Glomerular filtration rate ( GFR) estimation/1.73 sq m using serum, plasma, or whole bOrdered By: Leandro Sanchez on 01-01-2025 GFR/1.73 sq M.predicted among non-blacks MDRD (S/P/Bld) [Vol rate/Area] 89 mL/min/{1.73_m2} >60 [facility] Glucose [Mass/Vol]Ordered By : Leandro Sanchez on 01-01-2025 Serum glucose measurement (mass/volume) 111 mg/dL High 70-99 [facility] Hematocrit Auto (Bld) [Volum e fraction]Ordered By: Leandro Sanchez on 01-01-2025 Hematocrit (Bld) [Volume fraction] 39.1 % 37-47 [facility] Automated blood hematocrit (percentage) 39.1 % 37-47 [facility] Hemoglobin measurementOrdere d By: Leandro Sanchez on 01-01-2025 Hemoglobin (Bld) [Mass/Vol] 12.0 g/dL 12.0-15.0 [facility] Hemoglobin measurement 12.0 g/dL 12.0-15.0 [facility] Lipaseon 01-01-2025 Lipase [Catalytic activity/Vol] 75 U/L Normal 13-75 [facility] Comment on above: Result Comment: Jenny capellan note:LIPASE revised reference range effective 23.New Lipase methodology. Expected to produce lower valuesthan the previous assay method.NEW Reference Range: 13 - 75 U/L Performed By: #### L 501.2450, L500.4050, L100.0100 ####[facility] [address] [place], [place], [id number] Lipase measurementOrdered By : Leandro Sanchez on 01-01-2025 Lipase measurement 75 U/L 13-75 [facility] Lymphocytes Auto (Unsp spec) [#/Vol]Ordered By: Leandro Sanchez on 01-01-2025 Absolute lymphocyte count 3.90 X10^3/uL 0.83-4.51 [facility] Lymphocytes/100 WBC (Bld)Ord ered By: Leandro Sanchez on 01-01-2025 Blood lymphocytes/100 leukocytes 24 % 19-41 [facility] MCV (RBC) [Entitic vol]Order ed By: Leandro Sanchez on 01-01-2025 MCV (mean corpuscular volume) determination 86.7 fL 81-99 [facility] MCV (mean corpuscular volume ) determinationOrdered By: Leandro Sanchez on 01-01-2025 MCV (RBC) [Entitic vol] 86.7 fL 81-99 [facility] Mean corpuscular hemoglobin (MCH) determinationOrdered By: Leandro Sanchez on 01-01-2025 MCH (RBC) [Entitic mass] 26.6 pg Low 27.0-32.0 [facility] Mean corpuscular hemoglobin (MCH) determination 26.6 pg Low 27.0-32.0 [facility] Mean corpuscular hemoglobin concentration (MCHC) determinationOrdered By: Leandro Sanchez on 01-01-2025 Mean corpuscular hemoglobin concentration (MCHC) determination 30.7 g/dL Low 32-36 [facility] Mean platelet volume determi nationOrdered By: Leandro Sanchez on 01-01-2025 Mean platelet volume determination 8.9 fl 6.2-12.0 [facility] Microcytosis evaluation pane lOrdered By: Leandro Sanchez on 01-01-2025 Microcytosis evaluation panel 1+ [facility] Myelocyte %Ordered By: Leandro Sanchez on 01-01-2025 Myelocyte % 1 % 0-1 [facility] Neutrophil percentageOrdered By: Leandro Sanchez on 01-01-2025 Neutrophil percentage Not Reportable [facility] No Panel InformationOrdered By: Leandro Sanchez on 01-01-2025 13 U/L <32 [facility] Pathologist review Geovany (Unsp spec) [Interp]Ordered By: Leandro Sanchez on 01-01-2025 Review by pathologist Tiesha gotti [facility] Platelet countOrdered By: Jose Sanchez on 01-01-2025 Platelets (Bld) [#/Vol] 553 10*3/uL High 150-450 [facility] Platelet count 553 K/mm3 High 150-450 [facility] Potassium (Unsp spec) [Mass/ Vol]Ordered By: Leandro Sanchez on 01-01-2025 Potassium measurement (mass/volume) 4.0 mmol/L 3.3-5.1 [facility] Potassium measurement (mass/ volume)Ordered By: Leandro Sanchez on 01-01-2025 Potassium (Unsp spec) [Mass/Vol] 4.0 mmol/L 3.3-5.1 [facility] RBC Auto (Bld) [#/Vol]Ordere d By: Leandro Sanchez on 01-01-2025 RBC (Bld) [#/Vol] 4.51 10*6/uL 4.2-5.4 [facility] Automated blood erythrocyte count 4.51 M/mm3 4.2-5.4 [facility] Review by pathologistOrdered By: Leandro Sanchez on 01-01-2025 Pathologist review Geovany (Unsp spec) [Interp] N/A [facility] Segmented neutrophils/100 WB C (Bld)Ordered By: Leandro Sanchez on 01-01-2025 Blood segmented neutrophils/100 leukocytes 54 % 47-70 [facility] Serum creatinine measurement (mass/volume)Ordered By: Leandro Sanchez on 01-01-2025 Creatinine [Mass/Vol] 0.76 mg/dL 0.70-1.20 [facility] Serum globulin measurementOr dered By: Leandro Sanchez on 01-01-2025 Globulin (S) [Mass/Vol] 3.2 g/dL 2.2-4.2 [facility] Serum globulin measurement 3.2 g/dL 2.2-4.2 [facility] Serum glucose measurement (m ass/volume)Ordered By: Leandro Sanchez on 01-01-2025 Glucose [Mass/Vol] 111 mg/dL High 70-99 [facility] Serum or plasma alanine pimentel otransferase (ALT) measurementOrdered By: Leandro Sanchez on 01-01-2025 ALT [Catalytic activity/Vol] 8 U/L <35 [facility] Serum or plasma albumin esthela urement (mass/volume)Ordered By: Leandro Sanchez on 01-01-2025 Albumin [Mass/Vol] 3.7 g/dL 3.4-4.8 [facility] Serum or plasma albumin/glob ulin mass ratioOrdered By: Leandro Sanchez on 01-01-2025 Albumin/Globulin [Mass ratio] 1.2 {ratio} 0.9-2.4 [facility] Serum or plasma alkaline jose sphatase measurementOrdered By: Leandro Sanchez on 01-01-2025 ALP [Catalytic activity/Vol] 111 U/L High 35-104 [facility] Serum or plasma calcium esthela urement (mass/volume)Ordered By: Leandro Sanchez on 01-01-2025 Calcium [Mass/Vol] 9.0 mg/dL 7.6-11.0 [facility] Serum or plasma urea nitroge n measurement (mass/volume)Ordered By: Leandro Sanchez on 01-01-2025 Urea nitrogen [Mass/Vol] 7 mg/dL 01-14 [facility] Sodium levelOrdered By: Leandro Sanchez on 01-01-2025 Sodium [Moles/Vol] 130 mmol/L Low 133-145 [facility] Sodium level 130 mmol/L Low 133-145 [facility] Total cell countOrdered By: Leandro Sanchez on 01-01-2025 Cells counted Molgen (Bld/Tiss) [#] 100 MANUAL DIFF [facility] Total proteinOrdered By: Bhargavi Sanchez on 01-01-2025 Protein [Mass/Vol] 6.9 g/dL 5.9-8.4 [facility] Total protein 6.9 g/dL 5.9-8.4 [facility] Urea nitrogen [Mass/Vol]Orde red By: Leandro Sanchez on 01-01-2025 Serum or plasma urea nitrogen measurement (mass/volume) 7 mg/dL 01-14 [facility] White blood cell (WBC) count Ordered By: Leandro Sanchez on 01-01-2025 WBC (Bld) [#/Vol] 16.5 10*3/uL High 4.4-11.0 [facility] White blood cell (WBC) count 16.5 K/mm3 High 4.4-11.0 [facility] CNPNon 12-27-2024 IGORN Telephone (DDQ) -------- GRACIE BANUELOS ([id number]) 1965 F Date Time Provider Department 12/27/24 [...] Patient returned call. Can be reached at: [phone] (home) Juan Bloom LPN 12/28/2024 3:45 PM [...] would notify Juan Senior as well MCKENNA LeNoemí Mg 01/04/2025 3:16 PM Signed Patient called back. She would like to speak with Juan Senior to touch base. She has a pain management appt at 1:00 tomorrow. [phone] (home) Juan Senior APRN.CNP 01/05/2025 10:42 AM Signed Spoke with patient. She says she is feeling better but still experiencing abdominal pain. Has been going to ER in [place] for IV Morphine, they also give her [...] of Date: 12/27/2024 Noted Allergy Reaction BACTRIM (SULFAMETHOXAZOLE-TRIMET H*11/28/2022 4 - Hives HYDROCODONE 08/02/2020 9 - Itching PENICILLINS 07/07/2006 14 - Other: See Comments Comments: hives VALIUM (DIAZEPAM) 11/02/2013 14 - Other: See Comments Comments: cross reaction with alcohol addiction Date Reviewed: 12/19/2024 Reviewed by: Tara Youngblood APRN.LEGAL EXECUTIVE ASSISTANT - Fully Assessed Reason for Visit: Patient Update [1234] Primary Visit Diagnosis:Pulmonary emphysema, unspecified emphysema type (HCC) [J43.9] Other Visit Diagnoses: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 Normal [facility] ALP [Catalytic activity/Vol] Ordered By: Mo Velasco on 12-24-2024 Serum or plasma alkaline phosphatase measurement 117 U/L High 35-104 [facility] ALT [Catalytic activity/Vol] Ordered By: Mo Velasco on 12-24-2024 Serum or plasma alanine aminotransferase (ALT) measurement 18 U/L <35 [facility] Absolute lymphocyte countOrd ered By: Mo Velasco on 12-24-2024 Lymphocytes Auto (Unsp spec) [#/Vol] 2.44 10*3/uL 0.83-4.51 [facility] Absolute neutrophil countOrd ered By: Mo Velasco on 12-24-2024 Absolute neutrophil count 14.1 X10^3/uL High 2.0-7.7 [facility] Albumin [Mass/Vol]Ordered By : Mo Velasco on 12-24-2024 Serum or plasma albumin measurement (mass/volume) 3.4 g/dL 3.4-4.8 [facility] Anion gap [Moles/Vol]Ordered By: Mo Velasco on 12-24-2024 Anion gap in Serum or Plasma 13 5-15 [facility] Anion gap in Serum or Plasma Ordered By: Mo Velasco on 12-24-2024 Anion gap [Moles/Vol] 13 mmol/L - [facility] Automated lymphocyte count a s percentage of total leukocytesOrdered By: Mo Velasco on 12-24-2024 Lymphocytes/100 WBC Auto (Unsp spec) 13.4 % Low 19-41 [facility] BUN/creatinine ratioOrdered By: Mo Velasco on 12-24-2024 Urea nitrogen/Creatinine [Mass ratio] 4.2 mg/mg Low 10-20 [facility] BUN/creatinine ratio 4.2 RATIO Low 10-20 [facility] Basic Metabolic Profile (BMP )on 12-24-2024 BUN/CRE 4.2 RATIO Low 10-20 [facility] Comment on above: Performed By: #### L 100.0100, L501.2450, L500.3400, L500.2500 ####[facility] [address] [place], [address] Calcium [Mass/Vol] 9.3 mg/dL Normal 7.6-11.0 [facility] Comment on above: Performed By: #### L 100.0100, L501.2450, L500.3400, L500.2500 ####[facility] [address] [place], [address] Chloride [Moles/Vol] 97 mmol/L Low 98-108 [facility] Comment on above: Performed By: #### L 100.0100, L501.2450, L500.3400, L500.2500 ####[facility] [address] [place], [address] CO2 [Moles/Vol] 28.1 mmol/L Normal 21.0-32.0 [facility] Comment on above: Performed By: #### L 100.0100, L501.2450, L500.3400, L500.2500 ####[facility] [address] [place], [address] Creatinine [Mass/Vol] 0.77 mg/dL Normal 0.70-1.20 [facility] Comment on above: Performed By: #### L 100.0100, L501.2450, L500.3400, L500.2500 ####[facility] [address] [place], [address] ECRCL 63.47 ml/min Normal 50-250 [facility] Comment on above: Performed By: #### L 100.0100, L501.2450, L500.3400, L500.2500 ####[facility] [address] [place], [address] GAP 13 Normal 5-15 [facility] Comment on above: Performed By: #### L 100.0100, L501.2450, L500.3400, L500.2500 ####[facility] [address] [place], [address] GFR/1.73 sq M.predicted among non-blacks MDRD (S/P/Bld) [Vol rate/Area] 88 mL/min/{1.73_m2} Normal >60 [facility] Comment on above: Result Comment: mL/m in/1.73m2 CKD-EPI Creatinine Equation (2020) Performed By: #### L 100.0100, L501.2450, L500.3400, L500.2500 ####[facility] [address] [place], [address] Glucose [Mass/Vol] 131 mg/dL High 70-99 [facility] Comment on above: Performed By: #### L 100.0100, L501.2450, L500.3400, L500.2500 ####[facility] [address] [place], [address] Potassium [Moles/Vol] 4.1 mmol/L Normal 3.3-5.1 [facility] Comment on above: Performed By: #### L 100.0100, L501.2450, L500.3400, L500.2500 ####[facility] [address] [place], [address] Sodium [Moles/Vol] 137 mmol/L Normal 133-145 [facility] Comment on above: Performed By: #### L 100.0100, L501.2450, L500.3400, L500.2500 ####[facility] [address] [place], [address] Urea nitrogen [Mass/Vol] 3 mg/dL Low 4-19 [facility] Comment on above: Performed By: #### L 100.0100, L501.2450, L500.3400, L500.2500 ####[facility] [address] [place], [address] Basophil percentageOrdered B y: Mo Velasco on 12-24-2024 Basophils/100 WBC (Bld) 0.7 % 0-1 [facility] Basophil percentage 0.7 % 0-1 [facility] Bilirubin directOrdered By: Mo Velasco on 12-24-2024 Bilirubin.direct [Mass/Vol] 0.09 mg/dL 0.00-0.30 [facility] Bilirubin, totalOrdered By: Mo Velasco on 12-24-2024 Bilirubin [Mass/Vol] 0.19 mg/dL 0.00-1.30 [facility] Bilirubin, total 0.19 mg/dL 0.00-1.30 [facility] Bilirubin.direct [Mass/Vol]O rdered By: Mo Velasco on 12-24-2024 Bilirubin direct 0.09 mg/dL 0.00-0.30 [facility] CBC W/Diff, Automatedon 11-27 Absolute Lymph 2.44 X10 3/uL Normal 0.83-4.51 [facility] Comment on above: Performed By: #### L 100.0100, L501.2450, L500.3400, L500.2500 ####[facility] [address] [place], [address] Absolute Neut 14.1 X10 3/uL High 2.0-7.7 [facility] Comment on above: Performed By: #### L 100.0100, L501.2450, L500.3400, L500.2500 ####[facility] [address] [place], [address] Basophils/100 WBC (Bld) 0.7 % Normal 0-1 [facility] Comment on above: Performed By: #### L 100.0100, L501.2450, L500.3400, L500.2500 ####[facility] [address] [place], [address] Eosinophils/100 WBC (Bld) 2.3 % Normal 0-5 [facility] Comment on above: Performed By: #### L 100.0100, L501.2450, L500.3400, L500.2500 ####[facility] [address] [place], [address] Erythrocyte distribution width (RBC) [Ratio] 14.6 % Normal 11.6-14.6 [facility] Comment on above: Performed By: #### L 100.0100, L501.2450, L500.3400, L500.2500 ####[facility] [address] [place], [address] Hematocrit (Bld) [Volume fraction] 33.8 % Low 37-47 [facility] Comment on above: Performed By: #### L 100.0100, L501.2450, L500.3400, L500.2500 ####[facility] [address] [place], [address] Hemoglobin (Bld) [Mass/Vol] 10.8 g/dL Low 12.0-15.0 [facility] Comment on above: Performed By: #### L 100.0100, L501.2450, L500.3400, L500.2500 ####[facility] [address] [place], [address] IG% 0.900 Normal 0.0-0.9 [facility] Comment on above: Result Comment: IG% - Immature Granulocytes (promyelocytes, myelocytes andmetamyelocytes) > 1% indicates that a LEFT SHIFT is Present. Performed By: #### L 100.0100, L501.2450, L500.3400, L500.2500 ####[facility] [address] [place], [address] Lymphocytes/100 WBC (Bld) 13.4 % Low 19-41 [facility] Comment on above: Performed By: #### L 100.0100, L501.2450, L500.3400, L500.2500 ####[facility] [address] [place], [address] MCH (RBC) [Entitic mass] 26.9 pg Low 27.0-32.0 [facility] Comment on above: Performed By: #### L 100.0100, L501.2450, L500.3400, L500.2500 ####[facility] [address] [place], [address] MCHC (RBC) [Mass/Vol] 32.0 g/dL Normal 32-36 [facility] Comment on above: Performed By: #### L 100.0100, L501.2450, L500.3400, L500.2500 ####[facility] [address] [place], [address] MCV (RBC) [Entitic vol] 84.1 fL Normal 81-99 [facility] Comment on above: Performed By: #### L 100.0100, L501.2450, L500.3400, L500.2500 ####[facility] [address] [place], [address] Monocytes/100 WBC (Bld) 5.5 % Normal 0-10 [facility] Comment on above: Performed By: #### L 100.0100, L501.2450, L500.3400, L500.2500 ####[facility] [address] [place], [address] Neutrophils/100 WBC (Bld) 77.2 % High 47-70 [facility] Comment on above: Performed By: #### L 100.0100, L501.2450, L500.3400, L500.2500 ####[facility] [address] [place], [address] Nucleated RBC (Bld) [#/Vol] 0 10*3/uL Normal 0-5 [facility] Comment on above: Performed By: #### L 100.0100, L501.2450, L500.3400, L500.2500 ####[facility] [address] [place], [address] Platelet mean volume (Bld) [Entitic vol] 9.3 fL Normal 6.2-12.0 [facility] Comment on above: Performed By: #### L 100.0100, L501.2450, L500.3400, L500.2500 ####[facility] [address] [place], [address] Platelets (Bld) [#/Vol] 396 10*3/uL Normal 150-450 [facility] Comment on above: Performed By: #### L 100.0100, L501.2450, L500.3400, L500.2500 ####[facility] [address] [place], [address] RBC (Bld) [#/Vol] 4.02 10*6/uL Low 4.2-5.4 [facility] Comment on above: Performed By: #### L 100.0100, L501.2450, L500.3400, L500.2500 ####[facility] [address] [place], [address] RDW SD 45.1 fl High 35.1-43.9 [facility] Comment on above: Performed By: #### L 100.0100, L501.2450, L500.3400, L500.2500 ####[facility] [address] [place], [address] WBC (Bld) [#/Vol] 18.2 10*3/uL High 4.4-11.0 [facility] Comment on above: Performed By: #### L 100.0100, L501.2450, L500.3400, L500.2500 ####[facility] [address] [place], [address] Calcium [Mass/Vol]Ordered By : Mo Velasco on 12-24-2024 Serum or plasma calcium measurement (mass/volume) 9.3 mg/dL 7.6-11.0 [facility] Carbon dioxide, total [Moles /volume] in Central venous bloodOrdered By: Mo Velasco on 12-24-2024 CO2 [Moles/Vol] 28.1 mmol/L 21.0-32.0 [facility] Carbon dioxide, total [Moles/volume] in Central venous blood 28.1 mmol/L 21.0-32.0 [facility] Chloride assayOrdered By: Roman Velasco on 12-24-2024 Chloride [Moles/Vol] 97 mmol/L Low 98-108 [facility] Chloride assay 97 mmol/L Low 98-108 [facility] Creatinine [Mass/Vol]Ordered By: Mo Velasco on 12-24-2024 Serum creatinine measurement (mass/volume) 0.77 mg/dL 0.70-1.20 [facility] Emergency Department Summary on 12-24-2024 Emergency Department Summary Normal [facility] Eosinophil percentageOrdered By: Mo Velasco on 12-24-2024 Eosinophils/100 WBC (Bld) 2.3 % 0-5 [facility] Eosinophil percentage 2.3 % 0-5 [facility] Erythrocyte distribution wid th (RBC) [Ratio]Ordered By: Mo Velasco on 12-24-2024 Erythrocyte distribution width ratio 14.6 % 11.6-14.6 [facility] Erythrocyte distribution wid th ratioOrdered By: Mo Velasco on 12-24-2024 Erythrocyte distribution width (RBC) [Ratio] 14.6 % 11.6-14.6 [facility] Erythrocyte distribution wid th standard deviationOrdered By: Mo Velasco on 12-24-2024 Erythrocyte distribution width (RBC) [Ratio] 45.1 fl High 35.1-43.9 [facility] Erythrocyte distribution width standard deviation 45.1 fl High 35.1-43.9 [facility] Estimation of creatinine binu aranceOrdered By: Mo Velasco on 12-24-2024 Estimation of creatinine clearance 63.47 ml/min 50-250 [facility] GFR/1.73 sq M.predicted gregory g non-blacks MDRD (S/P/Bld) [Vol rate/Area]Ordered By: Mo Velasco on 12-24-2024 Glomerular filtration rate (GFR) estimation/1.73 sq m using serum, plasma, or whole b 88 >60 [facility] Glomerular filtration rate ( GFR) estimation/1.73 sq m using serum, plasma, or whole bOrdered By: Mo Velasco on 12-24-2024 GFR/1.73 sq M.predicted among non-blacks MDRD (S/P/Bld) [Vol rate/Area] 88 mL/min/{1.73_m2} >60 [facility] Glucose [Mass/Vol]Ordered By : Mo Velasco on 12-24-2024 Serum glucose measurement (mass/volume) 131 mg/dL High 70-99 [facility] Hematocrit Auto (Bld) [Volum e fraction]Ordered By: Mo Velasco on 12-24-2024 Hematocrit (Bld) [Volume fraction] 33.8 % Low 37-47 [facility] Automated blood hematocrit (percentage) 33.8 % Low 37-47 [facility] Hemoglobin measurementOrdere d By: Mo Anjelica on 12-24-2024 Hemoglobin (Bld) [Mass/Vol] 10.8 g/dL Low 12.0-15.0 [facility] Hemoglobin measurement 10.8 g/dL Low 12.0-15.0 [facility] Immature granulocytes/100 WB C Auto (Bld)Ordered By: Mo Velasco on 12-24-2024 Immature granulocytes/100 WBC (Bld) 0.900 % 0.0-0.9 [facility] Automated immature granulocyte percentage 0.900 % 0.0-0.9 [facility] Lipaseon 12-24-2024 Lipase [Catalytic activity/Vol] 34 U/L Normal 13-75 [facility] Comment on above: Result Comment: Jenny capellan note:LIPASE revised reference range effective 23.New Lipase methodology. Expected to produce lower valuesthan the previous assay method.NEW Reference Range: 13 - 75 U/L Performed By: #### L 100.0100, L501.2450, L500.3400, L500.2500 ####[facility] [address] [place], [address] Lipase measurementOrdered By : Mo Velasco on 12-24-2024 Lipase measurement 34 U/L [facility] Liver Profileon 12-24-2024 Albumin [Mass/Vol] 3.4 g/dL Normal 3.4-4.8 [facility] Comment on above: Performed By: #### L 100.0100, L501.2450, L500.3400, L500.2500 ####[facility] [address] [place], [address] ALK PHOS 117 U/L High 35-104 [facility] Comment on above: Performed By: #### L 100.0100, L501.2450, L500.3400, L500.2500 ####[facility] [address] [place], [address] ALT [Catalytic activity/Vol] 18 U/L Normal <=34 [facility] Comment on above: Performed By: #### L 100.0100, L501.2450, L500.3400, L500.2500 ####[facility] [address] [place], [address] AST [Catalytic activity/Vol] 16 U/L Normal <=31 [facility] Comment on above: Performed By: #### L 100.0100, L501.2450, L500.3400, L500.2500 ####[facility] [address] [place], [address] Bilirubin [Mass/Vol] 0.19 mg/dL Normal 0.00-1.30 [facility] Comment on above: Performed By: #### L 100.0100, L501.2450, L500.3400, L500.2500 ####[facility] [address] [place], [address] Bilirubin.direct [Mass/Vol] 0.09 mg/dL Normal 0.00-0.30 [facility] Comment on above: Performed By: #### L 100.0100, L501.2450, L500.3400, L500.2500 ####[facility] [address] [place], [address] Globulin (S) [Mass/Vol] 3.7 g/dL Normal 2.2-4.2 [facility] Comment on above: Performed By: #### L 100.0100, L501.2450, L500.3400, L500.2500 ####[facility] [address] [place], [address] T PROT 7.1 g/dL Normal 5.9-8.4 [facility] Comment on above: Performed By: #### L 100.0100, L501.2450, L500.3400, L500.2500 ####[facility] [address] [place], [address] Lymphocytes Auto (Unsp spec) [#/Vol]Ordered By: Mo Velasco on 12-24-2024 Absolute lymphocyte count 2.44 X10^3/uL 0.83-4.51 [facility] Lymphocytes/100 WBC Auto (Un sp spec)Ordered By: Mo Velasco on 12-24-2024 Automated lymphocyte count as percentage of total leukocytes 13.4 % Low 19-41 [facility] MCV (RBC) [Entitic vol]Order ed By: Mo Velasco on 12-24-2024 MCV (mean corpuscular volume) determination 84.1 fL 81-99 [facility] MCV (mean corpuscular volume ) determinationOrdered By: Mo Velasco on 12-24-2024 MCV (RBC) [Entitic vol] 84.1 fL 81-99 [facility] Mean corpuscular hemoglobin (MCH) determinationOrdered By: Mo Velasco on 12-24-2024 MCH (RBC) [Entitic mass] 26.9 pg Low 27.0-32.0 [facility] Mean corpuscular hemoglobin (MCH) determination 26.9 pg Low 27.0-32.0 [facility] Mean corpuscular hemoglobin concentration (MCHC) determinationOrdered By: Mo Velasco on 12-24-2024 Mean corpuscular hemoglobin concentration (MCHC) determination 32.0 g/dL 32-36 [facility] Mean platelet volume determi nationOrdered By: Mo Velasco on 12-24-2024 Mean platelet volume determination 9.3 fl 6.2-12.0 [facility] Monocyte percentageOrdered B y: Mo Velasco on 12-24-2024 Monocytes/100 WBC (Bld) 5.5 % 0-10 [facility] Monocyte percentage 5.5 % 0-10 [facility] Neutrophil percentageOrdered By: Mo Velasco on 12-24-2024 Neutrophils/100 WBC (Bld) 77.2 % High 47-70 [facility] Neutrophil percentage 77.2 % High 47-70 [facility] No Panel InformationOrdered By: Mo Velasco on 12-24-2024 16 U/L <32 [facility] Nucleated red blood cell per centageOrdered By: Mo Velasco on 12-24-2024 Nucleated red blood cell percentage 0 % 0-5 [facility] Platelet countOrdered By: Roman Velasco on 12-24-2024 Platelets (Bld) [#/Vol] 396 10*3/uL 150-450 [facility] Platelet count 396 K/mm3 150-450 [facility] Potassium (Unsp spec) [Mass/ Vol]Ordered By: Mo Velasco on 12-24-2024 Potassium measurement (mass/volume) 4.1 mmol/L 3.3-5.1 [facility] Potassium measurement (mass/ volume)Ordered By: Mo Velasco on 12-24-2024 Potassium (Unsp spec) [Mass/Vol] 4.1 mmol/L 3.3-5.1 [facility] RBC Auto (Bld) [#/Vol]Ordere d By: Mo Velasco on 12-24-2024 RBC (Bld) [#/Vol] 4.02 10*6/uL Low 4.2-5.4 [facility] Automated blood erythrocyte count 4.02 M/mm3 Low 4.2-5.4 [facility] Serum creatinine measurement (mass/volume)Ordered By: Mo Velasco on 12-24-2024 Creatinine [Mass/Vol] 0.77 mg/dL 0.70-1.20 [facility] Serum globulin measurementOr dered By: Mo Velasco on 12-24-2024 Globulin (S) [Mass/Vol] 3.7 g/dL 2.2-4.2 [facility] Serum globulin measurement 3.7 g/dL 2.2-4.2 [facility] Serum glucose measurement (m ass/volume)Ordered By: Mo Velasco on 12-24-2024 Glucose [Mass/Vol] 131 mg/dL High 70-99 [facility] Serum or plasma alanine pimentel otransferase (ALT) measurementOrdered By: Mo Velasco on 12-24-2024 ALT [Catalytic activity/Vol] 18 U/L <35 [facility] Serum or plasma albumin esthela urement (mass/volume)Ordered By: Mo Velasco on 12-24-2024 Albumin [Mass/Vol] 3.4 g/dL 3.4-4.8 [facility] Serum or plasma alkaline jose sphatase measurementOrdered By: Mo Velasco on 12-24-2024 ALP [Catalytic activity/Vol] 117 U/L High 35-104 [facility] Serum or plasma calcium esthela urement (mass/volume)Ordered By: Mo Velasco on 12-24-2024 Calcium [Mass/Vol] 9.3 mg/dL 7.6-11.0 [facility] Serum or plasma urea nitroge n measurement (mass/volume)Ordered By: Mo Velasco on 12-24-2024 Urea nitrogen [Mass/Vol] 3 mg/dL Low 4-19 [facility] Sodium levelOrdered By: Mo Velasco on 12-24-2024 Sodium [Moles/Vol] 137 mmol/L 133-145 [facility] Sodium level 137 mmol/L 133-145 [facility] Total proteinOrdered By: Bruce Velasco on 12-24-2024 Protein [Mass/Vol] 7.1 g/dL 5.9-8.4 [facility] Total protein 7.1 g/dL 5.9-8.4 [facility] Urea nitrogen [Mass/Vol]Orde red By: Mo Velasco on 12-24-2024 Serum or plasma urea nitrogen measurement (mass/volume) 3 mg/dL Low 4-19 [facility] White blood cell (WBC) count Ordered By: Mo Velasco on 12-24-2024 WBC (Bld) [#/Vol] 18.2 10*3/uL High 4.4-11.0 [facility] White blood cell (WBC) count 18.2 K/mm3 High 4.4-11.0 [facility] CNPNon 12-23-2024 CNPN Telephone (GAPRA3) -------- GRACIE BANUELOS ([id number]) 1965 F Date Time Provider Department 12/23/24 RAISA JIMENEZ During your visit today, we recorded the following information about you: Raisa Jimenez RN 12/23/2024 12:32 PM Signed Spoke with pt and went over instructions and directions for her appt on 12/27/24. Pt wrote down verbal instructions and confirmed understanding Raisa Jimenez MA (Nell) Allergies As of Date: 12/23/2024 Noted Allergy Reaction BACTRIM (SULFAMETHOXAZOLE-TRIMET H*11/28/2022 4 - Hives HYDROCODONE 08/02/2020 9 - Itching PENICILLINS 07/07/2006 14 - Other: See Comments Comments: hives VALIUM (DIAZEPAM) 11/02/2013 14 - Other: See Comments Comments: cross reaction with alcohol addiction Date Reviewed: 12/19/2024 Reviewed by: Tara Youngblood APRN.LEGAL EXECUTIVE ASSISTANT - Fully Assessed Reason for Visit: Reminder Call [[id number]] Cmt: Missed call Prescriptions as of 12/23/2024 [...] stress female [N39.3] 11/24/2014 HPV test positive [[id number]] 11/24/2014 Alcohol dependence in remission (HCC) [F10.21] [...] Status:Closed by RAISA JIMENEZ on 12/23/24 Normal [facility] Pulmonary Visit Reporton Pulmonary Visit Report Normal [facility] NURSING PROGon 12-20-2024 NURSING PROG HNO ID: [id number] Author: CARROLL LEBLANC RN Service: ? Author Type: Registered Nurse Type: Nursing Progress Note Filed: 12/20/2024 14:56 Note Text: Attempted to reach the patient at the contact number that they provided [phone] (home) . Unable to speak with patient so without identifying the patient the following information was left on their voice mail: Date of procedure, location and report time Prep instructions A message was left informing the patient/patient event representative they must have a responsible adult [...] Number to call with questions or concerns [phone] Number to call to cancel their procedure [phone] Carroll Leblanc RN Normal [facility] CBC W Auto Differential pane l (Bld)on 12-19-2024 Basophils (Bld) [#/Vol] 0.23 10*3/uL High <0.11 [facility] Comment on above: Order Comment: Speci men Type: BLOOD SPECIMEN Ordering Facility: [facility] Address: [address] [place] [address] Performed By: #### 5 7021-8 #### [facility] CLIA [id number] [address] [place] [address] [place] Basophils/100 WBC (Bld) 0.9 % Normal [facility] Comment on above: Order Comment: Speci men Type: BLOOD SPECIMEN Ordering Facility: [facility] Address: [address] [place] [address] Performed By: #### 5 7021-8 #### [facility] CLIA [id number] [address] [place] [address] [place] Dacrocytes LM Ql (Bld) Few Normal [facility] Comment on above: Order Comment: Speci men Type: BLOOD SPECIMEN Ordering Facility: [facility] Address: [address] [place] [address] Performed By: #### 5 7021-8 #### [facility] CLIA [id number] [address] [place] [address] [place] Differential cell count method Nom (Bld) Manual Normal [facility] Comment on above: Order Comment: Speci men Type: BLOOD SPECIMEN Ordering Facility: [facility] Address: [address] [place] [address] Performed By: #### 5 7021-8 #### [facility] CLIA [id number] [address] [place] [address] [place] Eosinophils (Bld) [#/Vol] 0.00 10*3/uL Normal <0.46 [facility] Comment on above: Order Comment: Speci men Type: BLOOD SPECIMEN Ordering Facility: [facility] Address: [address] [place] [address] Performed By: #### 5 7021-8 #### [facility] CLIA [id number] [address] [place] [address] [place] Eosinophils/100 WBC (Bld) 0.0 % Normal [facility] Comment on above: Order Comment: Speci men Type: BLOOD SPECIMEN Ordering Facility: [facility] Address: [address] [place] [address] Performed By: #### 5 7021-8 #### [facility] CLIA [id number] [address] [place] [address] [place] Erythrocyte distribution width (RBC) [Ratio] 14.7 % Normal 11.5-15.0 [facility] Comment on above: Order Comment: Speci men Type: BLOOD SPECIMEN Ordering Facility: [facility] Address: [address] [place] [address] Performed By: #### 5 7021-8 #### [facility] CLIA [id number] [address] [place] [address] [place] Hematocrit (Bld) [Volume fraction] 38.4 % Normal 36.0-46.0 [facility] Comment on above: Order Comment: Speci men Type: BLOOD SPECIMEN Ordering Facility: [facility] Address: [address] [place] [address] Performed By: #### 5 7021-8 #### [facility] CLIA [id number] [address] [place] [address] [place] Hemoglobin (Bld) [Mass/Vol] 11.6 g/dL Normal 11.5-15.5 [facility] Comment on above: Order Comment: Speci men Type: BLOOD SPECIMEN Ordering Facility: [facility] Address: [address] [place] [address] Performed By: #### 5 7021-8 #### [facility] CLIA [id number] [address] [place] [address] [place] Lymphocytes (Bld) [#/Vol] 3.58 10*3/uL Normal 1.00-4.00 [facility] Comment on above: Order Comment: Speci men Type: BLOOD SPECIMEN Ordering Facility: [facility] Address: [address] [place] [address] Performed By: #### 5 7021-8 #### [facility] CLIA [id number] [address] [place] [address] [place] Lymphocytes/100 WBC (Bld) 14.0 % Normal [facility] Comment on above: Order Comment: Speci men Type: BLOOD SPECIMEN Ordering Facility: [facility] Address: [address] [place] [address] Performed By: #### 5 7021-8 #### [facility] CLIA [id number] [address] [place] [address] [place] MCH (RBC) [Entitic mass] 26.7 pg Normal 26.0-34.0 [facility] Comment on above: Order Comment: Speci men Type: BLOOD SPECIMEN Ordering Facility: [facility] Address: [address] [place] [address] Performed By: #### 5 7021-8 #### [facility] CLIA [id number] [address] [place] [address] [place] MCHC (RBC) [Mass/Vol] 30.2 g/dL Low 30.5-36.0 [facility] Comment on above: Order Comment: Speci men Type: BLOOD SPECIMEN Ordering Facility: [facility] Address: [address] [place] [address] Performed By: #### 5 7021-8 #### [facility] CLIA [id number] [address] [place] [address] [place] MCV (RBC) [Entitic vol] 88.5 fL Normal 80.0-100.0 [facility] Comment on above: Order Comment: Speci men Type: BLOOD SPECIMEN Ordering Facility: [facility] Address: [address] [place] [address] Performed By: #### 5 7021-8 #### [facility] CLIA [id number] [address] [place], [place] [address] [place] Metamyelocytes/100 WBC (Bld) 0.9 % Normal [facility] Comment on above: Order Comment: Speci men Type: BLOOD SPECIMEN Ordering Facility: [facility] Address: [address] [place] [address] Performed By: #### 5 7021-8 #### [facility] CLIA [id number] [address] [place] [address] [place] Monocytes (Bld) [#/Vol] 0.90 10*3/uL High <0.87 [facility] Comment on above: Order Comment: Speci men Type: BLOOD SPECIMEN Ordering Facility: [facility] Address: [address] [place] [address] Performed By: #### 5 7021-8 #### [facility] CLIA [id number] [address] [place] [address] [place] Monocytes/100 WBC (Bld) 3.5 % Normal [facility] Comment on above: Order Comment: Speci men Type: BLOOD SPECIMEN Ordering Facility: [facility] Address: [address] [place] [address] Performed By: #### 5 7021-8 #### [facility] CLIA [id number] [address] [place] [address] [place] Neutrophils (Bld) [#/Vol] 20.64 10*3/uL High 1.45-7.50 [facility] Comment on above: Order Comment: Speci men Type: BLOOD SPECIMEN Ordering Facility: [facility] Address: [address] [place] [address] Performed By: #### 5 7021-8 #### [facility] CLIA [id number] [address] [place] [address] [place] Neutrophils/100 WBC (Bld) 80.7 % Normal [facility] Comment on above: Order Comment: Speci men Type: BLOOD SPECIMEN Ordering Facility: [facility] Address: [address] [place] [address] Performed By: #### 5 7021-8 #### [facility] CLIA [id number] [address] [place] [address] [place] Nucleated RBC (Bld) [#/Vol] 10*3/uL Normal <0.01 [facility] Comment on above: Order Comment: Speci men Type: BLOOD SPECIMEN Ordering Facility: [facility] Address: [address] [place] [address] Performed By: #### 5 7021-8 #### [facility] CLIA [id number] [address] [place] [address] [place] Nucleated RBC/100 WBC (Bld) [Ratio] 0.0 /100 WBC Normal [facility] Comment on above: Order Comment: Speci men Type: BLOOD SPECIMEN Ordering Facility: [facility] Address: [address] [place] [address] Performed By: #### 5 7021-8 #### [facility] CLIA [id number] [address] [place] [address] [place] Ovalocytes LM Ql (Bld) Few Normal [facility] Comment on above: Order Comment: Speci men Type: BLOOD SPECIMEN Ordering Facility: [facility] Address: [address] [place] [address] Performed By: #### 5 7021-8 #### [facility] CLIA [id number] [address] [place] [address] [place] Platelet mean volume (Bld) [Entitic vol] 10.9 fL Normal 9.0-12.7 [facility] Comment on above: Order Comment: Speci men Type: BLOOD SPECIMEN Ordering Facility: [facility] Address: [address] [place] [address] Performed By: #### 5 7021-8 #### [facility] CLIA [id number] [address] [id number] [address] [place] Platelets (Bld) [#/Vol] 331 10*3/uL Normal 150-400 [facility] Comment on above: Order Comment: Speci men Type: BLOOD SPECIMEN Ordering Facility: [facility] Address: [address] [place] [address] Performed By: #### 5 7021-8 #### [facility] CLIA [id number] [address] [place] [address] [place] Platelets Estimate (Bld) [#/Vol] Adequate Normal [facility] Comment on above: Order Comment: Speci men Type: BLOOD SPECIMEN Ordering Facility: [facility] Address: [address] [place] [address] Performed By: #### 5 7021-8 #### [facility] CLIA [id number] [address] [place] [address] [place] Polychromasia LM Ql (Bld) Slight Normal [facility] Comment on above: Order Comment: Speci men Type: BLOOD SPECIMEN Ordering Facility: [facility] Address: [address] [place] [address] Performed By: #### 5 7021-8 #### [facility] CLIA [id number] [address] [place] [address] [place] RBC (Bld) [#/Vol] 4.34 10*6/uL Normal 3.90-5.20 [facility] Comment on above: Order Comment: Speci men Type: BLOOD SPECIMEN Ordering Facility: [facility] Address: [address] [place] [address] Performed By: #### 5 7021-8 #### [facility] CLIA [id number] [address] [place] [address] [place] RED CELL MORPH Reviewed: see result s of individual morphologies Normal [facility] Comment on above: Order Comment: Speci men Type: BLOOD SPECIMEN Ordering Facility: [facility] Address: [address] [place] [address] Performed By: #### 5 7021-8 #### [facility] CLIA [id number] [address] [place] [address] [place] Target cells LM Ql (Bld) Few Normal [facility] Comment on above: Order Comment: Speci men Type: BLOOD SPECIMEN Ordering Facility: [facility] Address: [address] [place] [address] Performed By: #### 5 7021-8 #### [facility] CLIA [id number] [address] [place] [address] [place] WBC (Bld) [#/Vol] 25.58 10*3/uL High 3.70-11.00 [facility] Comment on above: Order Comment: Speci men Type: BLOOD SPECIMEN Ordering Facility: [facility] Address: [address] [place] [address] Performed By: #### 5 7021-8 #### [facility] CLIA [id number] [address] [place] [address] [place] WBC Left Shift Ql (Bld) Present Normal [facility] Comment on above: Order Comment: Speci men Type: BLOOD SPECIMEN Ordering Facility: [facility] Address: [address] [place] [address] Performed By: #### 5 7021-8 #### [facility] CLIA [id number] [address] [place] [address] [place] CNOVon 12-19-2024 CNOV Office Visit (FAMPWS ) -------- GRACIE BANUELOS ([id number]) 1965 F Date Time Provider Department 12/19/24 2:40 PM TARA YOUNGBLOOD During your visit today, we recorded the following information about you: Pulse Respiration Blood pressure Weight 103/minute 16/minute 118/62 62.1 kg Tara Youngblood, UNA.LEGAL EXECUTIVE ASSISTANT 12/19/2024 3:33 PM Signed Chief Complaint Patient presents with: hospital f/up HPI Gracie Banuelos is a 59 year old female who presents here today for Above Complaints. Gracie is an established patient of Dr. Satnam MD. Concerns today.. Hospital follow-up--- [facility] admission from 12/04-12/12 d/t acute [...] help her quit. 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 Chronic recurrent pancreatitis -- had recent surgery [...] airways disease (HCC) Alcohol dependence in remission ([facility]) 07/10/2015 Alcohol use disorder 08/27/2017 Alcohol-induced pancreatitis Alcoholic hepatitis 05/18/2012 Alcoholic liver disease (HCC) 11/16/2013 Anemia Anxiety with depression Arthritis Asthma Chronic hypoxemic respiratory failure (HCC) COPD (chronic obstructive pulmonary disease) ([facility]) 05/25/2012 DDD (degenerative disc disease), [...] to infectious organism 2017 Severe protein-calorie malnutrition ([facility]) 01/07/2019 Stage 3 severe COPD by GOLD classification ([facility]) 2018 Tobacco use greater than [...] Other: See (more content not included)... Normal [facility] 12-19-2024 CNPN Telephone (INTMWS) -------- VINGRACIE Salvatore ([id number]) 1965 F Date Time Provider Department 12/19/24 MISBAH ELKINS INTWS During your visit today, we recorded the following information about you: Marge Perkins, SARWAT 12/19/2024 6:52 PM Signed Pt called in for x-ray results. I let Pt know they are not back in yet and provider would call her when they are. Soila Easton APRN.LEGAL EXECUTIVE ASSISTANT 12/22/2024 8:08 AM Signed I am assuming this is regards to the chest xray as ordered by tara Youngblood. If so please see her result note on the xray. If not, please specify which xray I need to address. Thank you Soila Easton APRN.LEGAL EXECUTIVE ASSISTANT Scott EileenCHERELLE doshi 12/22/2024 9:01 AM Signed Message sent. Allergies As of Date: 12/19/2024 Noted Allergy Reaction BACTRIM (SULFAMETHOXAZOLE-TRIMET H*11/28/2022 4 - Hives HYDROCODONE 08/02/2020 9 - Itching PENICILLINS 07/07/2006 14 - Other: See Comments Comments: hives VALIUM (DIAZEPAM) 11/02/2013 14 - Other: See Comments Comments: cross reaction with alcohol addiction Date Reviewed: 12/19/2024 Reviewed by: Tara Youngblood APRN.LEGAL EXECUTIVE ASSISTANT - Fully Assessed Reason for Visit: Results [...] stress female [N39.3] 11/24/2014 HPV test positive [[id number]] 11/24/2014 Alcohol dependence in remission (HCC) [F10.21] [...] Encounter Status:Hiral (more content not included)... Normal [facility] Comprehensive metabolic 2000 panelon 12-19-2024 Albumin [Mass/Vol] 3.6 g/dL Low 3.9-4.9 [facility] Comment on above: Order Comment: Speci men Type: BLOOD SPECIMEN Ordering Facility: [facility] Address: [address] [id number] Performed By: #### 2 4323-8, 3040-3 #### [facility] CLIA [id number] [address] [place] [address] [place] ALP [Catalytic activity/Vol] 97 U/L Normal 34-123 [facility] Comment on above: Order Comment: Speci men Type: BLOOD SPECIMEN Ordering Facility: [facility] Address: [address] [place] [address] Performed By: #### 2 4323-8, 0-3 #### [facility] CLIA [id number] [address] [place] [address] [place] ALT [Catalytic activity/Vol] 16 U/L Normal 7-38 [facility] Comment on above: Order Comment: Speci men Type: BLOOD SPECIMEN Ordering Facility: [facility] Address: [address] [place] [address] Performed By: #### 2 4323-8, 0-3 #### [facility] CLIA [id number] [address] [place] [address] [place] Anion gap [Moles/Vol] 13 mmol/L Normal 8-15 [facility] Comment on above: Order Comment: Speci men Type: BLOOD SPECIMEN Ordering Facility: [facility] Address: [address] [place] [address] Performed By: #### 2 4323-8, 3040-3 #### [facility] CLIA [id number] [address] [id number] [place] AST [Catalytic activity/Vol] 14 U/L Normal 13-35 [facility] Comment on above: Order Comment: Speci men Type: BLOOD SPECIMEN Ordering Facility: [facility] Address: [address] [place], [place] [address] Performed By: #### 2 4323-8, 3040-3 #### [facility] CLIA [id number] [address] [place], [place] [address] [place] Bilirubin [Mass/Vol] 0.3 mg/dL Normal 0.2-1.3 [facility] Comment on above: Order Comment: Speci men Type: BLOOD SPECIMEN Ordering Facility: [facility] Address: [address] [place] [address] Performed By: #### 2 4323-8, 3040-3 #### [facility] CLIA [id number] [address] [place] [address] [place] Calcium [Mass/Vol] 8.9 mg/dL Normal 8.5-10.2 [facility] Comment on above: Order Comment: Speci men Type: BLOOD SPECIMEN Ordering Facility: [facility] Address: [address] [place] [address] Performed By: #### 2 4323-8, 3040-3 #### [facility] CLIA [id number] [address] [place] [address] [place] Chloride [Moles/Vol] 97 mmol/L Low 98-107 [facility] Comment on above: Order Comment: Speci men Type: BLOOD SPECIMEN Ordering Facility: [facility] Address: [address] [place] [address] Performed By: #### 2 4323-8, 3040-3 #### [facility] CLIA [id number] [address] [place], [place] [address] [place] CO2 [Moles/Vol] 30 mmol/L Normal 22-30 [facility] Comment on above: Order Comment: Speci men Type: BLOOD SPECIMEN Ordering Facility: [facility] Address: [address] [place], [place] [address] Performed By: #### 2 4323-8, 3040-3 #### [facility] CLIA [id number] [address] [place], [place] [address] [place] Creatinine [Mass/Vol] 0.81 mg/dL Normal 0.58-0.96 [facility] Comment on above: Order Comment: Reggie fajardo Type: BLOOD SPECIMEN Ordering Facility: [facility] Address: [address] [place] [address] Performed By: #### 2 4323-8, 3040-3 #### [facility] CLIA [id number] [address] [place] [address] [place] Creatinine and Glomerular filtration rate.predicted panel (S/P/Bld) 83 mL/min/1.73m??? Normal >=60 [facility] Comment on above: Order Comment: Reggie fajardo Type: BLOOD SPECIMEN Ordering Facility: [facility] Address: [address] [place] [address] Result Comment: Pavan mated Glomerular Filtration Rate [...] Performed By: #### 2 4323-8, 3040-3 #### [facility] CLIA [id number] [address] [place] [address] [place] Glucose [Mass/Vol] 86 mg/dL Normal 74-99 [facility] Comment on above: Order Comment: Reggie fajardo Type: BLOOD SPECIMEN Ordering Facility: [facility] Address: [address] [place] [address] Result Comment: The [place] [employer] (ADA) provides guidance for cutoff [...] Standards of Medical Care in Diabetes 2016, [place] [employer]. Diabetes Care. 2016.39(Suppl 1). Performed By: #### 2 4323-8, 3040-3 #### [facility] CLIA [id number] [address] [place] [address] [place] Potassium [Moles/Vol] 4.0 mmol/L Normal 3.7-5.1 [facility] Comment on above: Order Comment: Speci men Type: BLOOD SPECIMEN Ordering Facility: [facility] Address: [address] [place] [address] Performed By: #### 2 4323-8, 3039-3 #### [facility] CLIA [id number] [address] [place] [address] [place] Protein [Mass/Vol] 6.1 g/dL Low 6.3-8.0 [facility] Comment on above: Order Comment: Speci men Type: BLOOD SPECIMEN Ordering Facility: [facility] Address: [address] [place] [address] Performed By: #### 2 4323-8, 3039-3 #### [facility] CLIA [id number] [address] [place] [address] [place] Sodium [Moles/Vol] 140 mmol/L Normal 136-144 [facility] Comment on above: Order Comment: Speci men Type: BLOOD SPECIMEN Ordering Facility: [facility] Address: [address] [place] [address] Performed By: #### 2 4323-8, 0-3 #### [facility] CLIA [id number] [address] [place], [place] [address] [place] Urea nitrogen [Mass/Vol] 8 mg/dL Normal 7-21 [facility] Comment on above: Order Comment: Speci men Type: BLOOD SPECIMEN Ordering Facility: [facility] Address: [address] [place], [place] [address] Performed By: #### 2 4323-8, 0-3 #### [facility] CLIA [id number] [address] [place], [place] [address] [place] [address] [place] Lipase SerPl-cCncon 12-20-19 25 Lipase [Catalytic activity/Vol] 32 U/L Normal 16-61 [facility] Comment on above: Order Comment: Speci men Type: BLOOD SPECIMEN Ordering Facility: [facility] Address: [address] [place] [address] Performed By: #### 2 4323-8, 3040-3 #### [facility] CLIA [id number] [address] [place] [address] [place] XR CHEST 2V FRONTAL/LATon XR CHEST 2V FRONTAL/LAT * * *Final Report* * * DATE OF EXAM: Dec 19 [...] tissues: Unremarkable. IMPRESSION: No acute radiographic abnormality. Charge Entry: PSCB Transcribe Date/Time: Dec 21 2024 4:06P Dictated by : JEAN-CLAUDE MANRIQUEZ MD This examination was interpreted and the report reviewed and electronically signed by: JEAN-CLAUDE MANRIQUEZ MD on Dec 21 2024 4:07PM EST [id number] Normal [facility] Basic Metabolic Profile (BMP )on 12-17-2024 BUN Normal 4-19 [facility] Comment on above: Result Comment: Canc elled via OM: Order cancelled - Patient discharged Performed By: #### L 100.0100, L500.2500 ####[facility] [address] [place], [address] BUN/CRE Normal 10-20 [facility] Comment on above: Result Comment: Canc elled via OM: Order cancelled - Patient discharged Performed By: #### L 100.0100, L500.2500 ####[facility] [address] [place], [address] Calcium Normal 7.6-11.0 [facility] Comment on above: Result Comment: Canc elled via OM: Order cancelled - Patient discharged Performed By: #### L 100.0100, L500.2500 ####[facility] [address] [place], [address] CL Normal 98-108 [facility] Comment on above: Result Comment: Canc elled via OM: Order cancelled - Patient discharged Performed By: #### L 100.0100, L500.2500 ####[facility] [address] [place], [address] CO2 Normal 21.0-32.0 [facility] Comment on above: Result Comment: Canc elled via OM: Order cancelled - Patient discharged Performed By: #### L 100.0100, L500.2500 ####[facility] [address] [place], [address] CREAT,SERUM Normal 0.70-1.20 [facility] Comment on above: Result Comment: Canc elled via OM: Order cancelled - Patient discharged Performed By: #### L 100.0100, L500.2500 ####[facility] [address] [place], [address] eGFR Normal >60 [facility] Comment on above: Result Comment: Canc elled via OM: Order cancelled - Patient discharged Performed By: #### L 100.0100, L500.2500 ####[facility] [address] [place], [address] GAP Normal 5-15 [facility] Comment on above: Result Comment: Canc elled via OM: Order cancelled - Patient discharged Performed By: #### L 100.0100, L500.2500 ####[facility] [address] [place], [address] GLU Normal 70-99 [facility] Comment on above: Result Comment: Canc elled via OM: Order cancelled - Patient discharged Performed By: #### L 100.0100, L500.2500 ####[facility] [address] [place], [address] Potassium Normal 3.3-5.1 [facility] Comment on above: Result Comment: Canc elled via OM: Order cancelled - Patient discharged Performed By: #### L 100.0100, L500.2500 ####[facility] [address] [place], [address] Basic Metabolic Profile (BMP) Normal 133-145 [facility] Comment on above: Result Comment: Canc elled via OM: Order cancelled - Patient discharged Performed By: #### L 100.0100, L500.2500 ####[facility] [address] [place], [address] CBC W/Diff, Automatedon 03-2 Absolute Neut Normal 2.0-7.7 [facility] Comment on above: Result Comment: Canc elled via OM: Order cancelled - Patient discharged Performed By: #### L 100.0100, L500.2500 ####[facility] [address] [place], [address] HCT Normal 37-47 [facility] Comment on above: Result Comment: Canc elled via OM: Order cancelled - Patient discharged Performed By: #### L 100.0100, L500.2500 ####[facility] [address] [place], [address] HGB Normal 12.0-15.0 [facility] Comment on above: Result Comment: Canc elled via OM: Order cancelled - Patient discharged Performed By: #### L 100.0100, L500.2500 ####[facility] [address] [place], [address] MCH Normal 27.0-32.0 [facility] Comment on above: Result Comment: Canc elled via OM: Order cancelled - Patient discharged Performed By: #### L 100.0100, L500.2500 ####[facility] [address] [place], [address] MCHC Normal 32-36 [facility] Comment on above: Result Comment: Canc elled via OM: Order cancelled - Patient discharged Performed By: #### L 100.0100, L500.2500 ####[facility] [address] [place], [address] MCV Normal 81-99 [facility] Comment on above: Result Comment: Canc elled via OM: Order cancelled - Patient discharged Performed By: #### L 100.0100, L500.2500 ####[facility] [address] [place], [address] NEUT% Normal 47-70 [facility] Comment on above: Result Comment: Canc elled via OM: Order cancelled - Patient discharged Performed By: #### L 100.0100, L500.2500 ####[facility] [address] [place], [address] PLT Normal 150-450 [facility] Comment on above: Result Comment: Canc elled via OM: Order cancelled - Patient discharged Performed By: #### L 100.0100, L500.2500 ####[facility] [address] [place], [address] RBC Normal 4.2-5.4 [facility] Comment on above: Result Comment: Canc elled via OM: Order cancelled - Patient discharged Performed By: #### L 100.0100, L500.2500 ####[facility] [address] [place], [address] RDW CV Normal 11.6-14.6 [facility] Comment on above: Result Comment: Canc elled via OM: Order cancelled - Patient discharged Performed By: #### L 100.0100, L500.2500 ####[facility] [address] [place], [address] RDW SD Normal 35.1-43.9 [facility] Comment on above: Result Comment: Canc elled via OM: Order cancelled - Patient discharged Performed By: #### L 100.0100, L500.2500 ####[facility] [address] [place], [address] WBC Normal 4.4-11.0 [facility] Comment on above: Result Comment: Canc elled via OM: Order cancelled - Patient discharged Performed By: #### L 100.0100, L500.2500 ####[facility] [address] [place], [address] Basic Metabolic Profile (BMP )on 12-16-2024 BUN Normal 4-19 [facility] Comment on above: Result Comment: Canc elled via OM: Order cancelled - Patient discharged Performed By: #### L 500.2500, L100.0100 ####[facility] [address] [place], [address] BUN/CRE Normal 10-20 [facility] Comment on above: Result Comment: Canc elled via OM: Order cancelled - Patient discharged Performed By: #### L 500.2500, L100.0100 ####[facility] [address] [place], [address] Calcium Normal 7.6-11.0 [facility] Comment on above: Result Comment: Canc elled via OM: Order cancelled - Patient discharged Performed By: #### L 500.2500, L100.0100 ####[facility] [address] [place], [address] CL Normal 98-108 [facility] Comment on above: Result Comment: Canc elled via OM: Order cancelled - Patient discharged Performed By: #### L 500.2500, L100.0100 ####[facility] [address] [place], [address] CO2 Normal 21.0-32.0 [facility] Comment on above: Result Comment: Canc elled via OM: Order cancelled - Patient discharged Performed By: #### L 500.2500, L100.0100 ####[facility] [address] [place], [address] CREAT,SERUM Normal 0.70-1.20 [facility] Comment on above: Result Comment: Canc elled via OM: Order cancelled - Patient discharged Performed By: #### L 500.2500, L100.0100 ####[facility] [address] [place], [address] eGFR Normal >60 [facility] Comment on above: Result Comment: Canc elled via OM: Order cancelled - Patient discharged Performed By: #### L 500.2500, L100.0100 ####[facility] [address] [place], [address] GAP Normal 5-15 [facility] Comment on above: Result Comment: Canc elled via OM: Order cancelled - Patient discharged Performed By: #### L 500.2500, L100.0100 ####[facility] [address] [place], [address] GLU Normal 70-99 [facility] Comment on above: Result Comment: Canc elled via OM: Order cancelled - Patient discharged Performed By: #### L 500.2500, L100.0100 ####[facility] [address] [place], [address] Potassium Normal 3.3-5.1 [facility] Comment on above: Result Comment: Canc elled via OM: Order cancelled - Patient discharged Performed By: #### L 500.2500, L100.0100 ####[facility] [address] [place], [address] Basic Metabolic Profile (BMP) Normal 133-145 [facility] Comment on above: Result Comment: Canc elled via OM: Order cancelled - Patient discharged Performed By: #### L 500.2500, L100.0100 ####[facility] [address] [place], [address] CBC W/Diff, Automatedon 03-2 Absolute Neut Normal 2.0-7.7 [facility] Comment on above: Result Comment: Canc elled via OM: Order cancelled - Patient discharged Performed By: #### L 500.2500, L100.0100 ####[facility] [address] [place], [address] HCT Normal 37-47 [facility] Comment on above: Result Comment: Canc elled via OM: Order cancelled - Patient discharged Performed By: #### L 500.2500, L100.0100 ####[facility] [address] [place], [address] HGB Normal 12.0-15.0 [facility] Comment on above: Result Comment: Canc elled via OM: Order cancelled - Patient discharged Performed By: #### L 500.2500, L100.0100 ####[facility] [address] [place], [address] MCH Normal 27.0-32.0 [facility] Comment on above: Result Comment: Canc elled via OM: Order cancelled - Patient discharged Performed By: #### L 500.2500, L100.0100 ####[facility] [address] [place], [address] MCHC Normal 32-36 [facility] Comment on above: Result Comment: Canc elled via OM: Order cancelled - Patient discharged Performed By: #### L 500.2500, L100.0100 ####[facility] [address] [place], [address] MCV Normal 81-99 [facility] Comment on above: Result Comment: Canc elled via OM: Order cancelled - Patient discharged Performed By: #### L 500.2500, L100.0100 ####[facility] [address] [place], [address] NEUT% Normal 47-70 [facility] Comment on above: Result Comment: Canc elled via OM: Order cancelled - Patient discharged Performed By: #### L 500.2500, L100.0100 ####[facility] [address] [place], [address] PLT Normal 150-450 [facility] Comment on above: Result Comment: Canc elled via OM: Order cancelled - Patient discharged Performed By: #### L 500.2500, L100.0100 ####[facility] [address] [place], [address] RBC Normal 4.2-5.4 [facility] Comment on above: Result Comment: Canc elled via OM: Order cancelled - Patient discharged Performed By: #### L 500.2500, L100.0100 ####[facility] [address] [place], [address] RDW CV Normal 11.6-14.6 [facility] Comment on above: Result Comment: Canc elled via OM: Order cancelled - Patient discharged Performed By: #### L 500.2500, L100.0100 ####[facility] [address] [place], [address] RDW SD Normal 35.1-43.9 [facility] Comment on above: Result Comment: Canc elled via OM: Order cancelled - Patient discharged Performed By: #### L 500.2500, L100.0100 ####[facility] [address] [place], [address] WBC Normal 4.4-11.0 [facility] Comment on above: Result Comment: Canc elled via OM: Order cancelled - Patient discharged Performed By: #### L 500.2500, L100.0100 ####[facility] [address] [place], [address] Gastroenterology Visit Repor ton 12-16-2024 Gastroenterology Visit Report Normal [facility] Basic Metabolic Profile (BMP )on 12-15-2024 BUN Normal 4-19 [facility] Comment on above: Result Comment: Canc elled via OM: Order cancelled - Patient discharged Performed By: #### L 500.2500, L100.0100 ####[facility] [address] [place], [address] BUN/CRE Normal 10-20 [facility] Comment on above: Result Comment: Canc elled via OM: Order cancelled - Patient discharged Performed By: #### L 500.2500, L100.0100 ####[facility] [address] [place], [address] Calcium Normal 7.6-11.0 [facility] Comment on above: Result Comment: Canc elled via OM: Order cancelled - Patient discharged Performed By: #### L 500.2500, L100.0100 ####[facility] [address] [place], [address] CL Normal 98-108 [facility] Comment on above: Result Comment: Canc elled via OM: Order cancelled - Patient discharged Performed By: #### L 500.2500, L100.0100 ####[facility] [address] [place], [address] CO2 Normal 21.0-32.0 [facility] Comment on above: Result Comment: Canc elled via OM: Order cancelled - Patient discharged Performed By: #### L 500.2500, L100.0100 ####[facility] [address] [place], [address] CREAT,SERUM Normal 0.70-1.20 [facility] Comment on above: Result Comment: Canc elled via OM: Order cancelled - Patient discharged Performed By: #### L 500.2500, L100.0100 ####[facility] [address] [place], [address] eGFR Normal >60 [facility] Comment on above: Result Comment: Canc elled via OM: Order cancelled - Patient discharged Performed By: #### L 500.2500, L100.0100 ####[facility] [address] [place], [address] GAP Normal 5-15 [facility] Comment on above: Result Comment: Canc elled via OM: Order cancelled - Patient discharged Performed By: #### L 500.2500, L100.0100 ####[facility] [address] [place], [address] GLU Normal 70-99 [facility] Comment on above: Result Comment: Canc elled via OM: Order cancelled - Patient discharged Performed By: #### L 500.2500, L100.0100 ####[facility] [address] [place], [address] Potassium Normal 3.3-5.1 [facility] Comment on above: Result Comment: Canc elled via OM: Order cancelled - Patient discharged Performed By: #### L 500.2500, L100.0100 ####[facility] [address] [place], [address] Basic Metabolic Profile (BMP) Normal 133-145 [facility] Comment on above: Result Comment: Canc elled via OM: Order cancelled - Patient discharged Performed By: #### L 500.2500, L100.0100 ####[facility] [address] [place], [address] CBC W/Diff, Automatedon 03-2 0-2024 Absolute Neut Normal 2.0-7.7 [facility] Comment on above: Result Comment: Canc elled via OM: Order cancelled - Patient discharged Performed By: #### L 500.2500, L100.0100 ####[facility] [address] [place], [address] HCT Normal 37-47 [facility] Comment on above: Result Comment: Canc elled via OM: Order cancelled - Patient discharged Performed By: #### L 500.2500, L100.0100 ####[facility] [address] [place], [address] HGB Normal 12.0-15.0 [facility] Comment on above: Result Comment: Canc elled via OM: Order cancelled - Patient discharged Performed By: #### L 500.2500, L100.0100 ####[facility] [address] [place], [address] MCH Normal 27.0-32.0 [facility] Comment on above: Result Comment: Canc elled via OM: Order cancelled - Patient discharged Performed By: #### L 500.2500, L100.0100 ####[facility] [address] [place], [address] MCHC Normal 32-36 [facility] Comment on above: Result Comment: Canc elled via OM: Order cancelled - Patient discharged Performed By: #### L 500.2500, L100.0100 ####[facility] [address] [place], [address] MCV Normal 81-99 [facility] Comment on above: Result Comment: Canc elled via OM: Order cancelled - Patient discharged Performed By: #### L 500.2500, L100.0100 ####[facility] [address] [place], [address] NEUT% Normal 47-70 [facility] Comment on above: Result Comment: Canc elled via OM: Order cancelled - Patient discharged Performed By: #### L 500.2500, L100.0100 ####[facility] [address] [place], [address] PLT Normal 150-450 [facility] Comment on above: Result Comment: Canc elled via OM: Order cancelled - Patient discharged Performed By: #### L 500.2500, L100.0100 ####[facility] [address] [place], [address] RBC Normal 4.2-5.4 [facility] Comment on above: Result Comment: Canc elled via OM: Order cancelled - Patient discharged Performed By: #### L 500.2500, L100.0100 ####[facility] [address] [place], [address] RDW CV Normal 11.6-14.6 [facility] Comment on above: Result Comment: Canc elled via OM: Order cancelled - Patient discharged Performed By: #### L 500.2500, L100.0100 ####[facility] [address] [place], [address] RDW SD Normal 35.1-43.9 [facility] Comment on above: Result Comment: Canc elled via OM: Order cancelled - Patient discharged Performed By: #### L 500.2500, L100.0100 ####[facility] [address] [place], [address] WBC Normal 4.4-11.0 [facility] Comment on above: Result Comment: Canc elled via OM: Order cancelled - Patient discharged Performed By: #### L 500.2500, L100.0100 ####[facility] [address] [place], [address] Basic Metabolic Profile (BMP )on 12-14-2024 BUN Normal -19 [facility] Comment on above: Result Comment: Canc elled via OM: Order cancelled - Patient discharged Performed By: #### L 100.0100, L500.2500 ####[facility] [address] [place], [address] BUN/CRE Normal 10-20 [facility] Comment on above: Result Comment: Canc elled via OM: Order cancelled - Patient discharged Performed By: #### L 100.0100, L500.2500 ####[facility] [address] [place], [address] Calcium Normal 7.6-11.0 [facility] Comment on above: Result Comment: Canc elled via OM: Order cancelled - Patient discharged Performed By: #### L 100.0100, L500.2500 ####[facility] [address] [place], [address] CL Normal 98-108 [facility] Comment on above: Result Comment: Canc elled via OM: Order cancelled - Patient discharged Performed By: #### L 100.0100, L500.2500 ####[facility] [address] [place], [address] CO2 Normal 21.0-32.0 [facility] Comment on above: Result Comment: Canc elled via OM: Order cancelled - Patient discharged Performed By: #### L 100.0100, L500.2500 ####[facility] [address] [place], [address] CREAT,SERUM Normal 0.70-1.20 [facility] Comment on above: Result Comment: Canc elled via OM: Order cancelled - Patient discharged Performed By: #### L 100.0100, L500.2500 ####[facility] [address] [place], [address] eGFR Normal >60 [facility] Comment on above: Result Comment: Canc elled via OM: Order cancelled - Patient discharged Performed By: #### L 100.0100, L500.2500 ####[facility] [address] [place], [address] GAP Normal 5-15 [facility] Comment on above: Result Comment: Canc elled via OM: Order cancelled - Patient discharged Performed By: #### L 100.0100, L500.2500 ####[facility] [address] [place], [address] GLU Normal 70-99 [facility] Comment on above: Result Comment: Canc elled via OM: Order cancelled - Patient discharged Performed By: #### L 100.0100, L500.2500 ####[facility] [address] [place], [address] Potassium Normal 3.3-5.1 [facility] Comment on above: Result Comment: Canc elled via OM: Order cancelled - Patient discharged Performed By: #### L 100.0100, L500.2500 ####[facility] [address] [place], [address] Basic Metabolic Profile (BMP) Normal 133-145 [facility] Comment on above: Result Comment: Canc elled via OM: Order cancelled - Patient discharged Performed By: #### L 100.0100, L500.2500 ####[facility] [address] [place], [address] CBC W/Diff, Automatedon - Absolute Neut Normal 2.0-7.7 [facility] Comment on above: Result Comment: Canc elled via OM: Order cancelled - Patient discharged Performed By: #### L 100.0100, L500.2500 ####[facility] [address] [place], [address] HCT Normal 37-47 [facility] Comment on above: Result Comment: Canc elled via OM: Order cancelled - Patient discharged Performed By: #### L 100.0100, L500.2500 ####[facility] [address] [place], [address] HGB Normal 12.0-15.0 [facility] Comment on above: Result Comment: Canc elled via OM: Order cancelled - Patient discharged Performed By: #### L 100.0100, L500.2500 ####[facility] [address] [place], [address] MCH Normal 27.0-32.0 [facility] Comment on above: Result Comment: Canc elled via OM: Order cancelled - Patient discharged Performed By: #### L 100.0100, L500.2500 ####[facility] [address] [place], [address] MCHC Normal 32-36 [facility] Comment on above: Result Comment: Canc elled via OM: Order cancelled - Patient discharged Performed By: #### L 100.0100, L500.2500 ####[facility] [address] [place], [address] MCV Normal 81-99 [facility] Comment on above: Result Comment: Canc elled via OM: Order cancelled - Patient discharged Performed By: #### L 100.0100, L500.2500 ####[facility] [address] [place], [address] NEUT% Normal 47-70 [facility] Comment on above: Result Comment: Canc elled via OM: Order cancelled - Patient discharged Performed By: #### L 100.0100, L500.2500 ####[facility] [address] [place], [address] PLT Normal 150-450 [facility] Comment on above: Result Comment: Canc elled via OM: Order cancelled - Patient discharged Performed By: #### L 100.0100, L500.2500 ####[facility] [address] [place], [address] RBC Normal 4.2-5.4 [facility] Comment on above: Result Comment: Canc elled via OM: Order cancelled - Patient discharged Performed By: #### L 100.0100, L500.2500 ####[facility] [address] [place], [address] RDW CV Normal 11.6-14.6 [facility] Comment on above: Result Comment: Canc elled via OM: Order cancelled - Patient discharged Performed By: #### L 100.0100, L500.2500 ####[facility] [address] [place], [address] RDW SD Normal 35.1-43.9 [facility] Comment on above: Result Comment: Canc elled via OM: Order cancelled - Patient discharged Performed By: #### L 100.0100, L500.2500 ####[facility] [address] [place], [address] WBC Normal 4.4-11.0 [facility] Comment on above: Result Comment: Canc elled via OM: Order cancelled - Patient discharged Performed By: #### L 100.0100, L500.2500 ####[facility] [address] [place], [address] Basic Metabolic Profile (BMP )on 12-13-2024 BUN Normal 4-19 [facility] Comment on above: Result Comment: Canc elled via OM: Order cancelled - Patient discharged Performed By: #### L 100.0100, L500.2500 ####[facility] [address] [place], [address] BUN/CRE Normal 10-20 [facility] Comment on above: Result Comment: Canc elled via OM: Order cancelled - Patient discharged Performed By: #### L 100.0100, L500.2500 ####[facility] [address] [place], [address] Calcium Normal 7.6-11.0 [facility] Comment on above: Result Comment: Canc elled via OM: Order cancelled - Patient discharged Performed By: #### L 100.0100, L500.2500 ####[facility] [address] [place], [address] CL Normal 98-108 [facility] Comment on above: Result Comment: Canc elled via OM: Order cancelled - Patient discharged Performed By: #### L 100.0100, L500.2500 ####[facility] [address] [place], [address] CO2 Normal 21.0-32.0 [facility] Comment on above: Result Comment: Canc elled via OM: Order cancelled - Patient discharged Performed By: #### L 100.0100, L500.2500 ####[facility] [address] [place], [address] CREAT,SERUM Normal 0.70-1.20 [facility] Comment on above: Result Comment: Canc elled via OM: Order cancelled - Patient discharged Performed By: #### L 100.0100, L500.2500 ####[facility] [address] [place], [address] eGFR Normal >60 [facility] Comment on above: Result Comment: Canc elled via OM: Order cancelled - Patient discharged Performed By: #### L 100.0100, L500.2500 ####[facility] [address] [place], [address] GAP Normal 5-15 [facility] Comment on above: Result Comment: Canc elled via OM: Order cancelled - Patient discharged Performed By: #### L 100.0100, L500.2500 ####[facility] [address] [place], [address] GLU Normal 70-99 [facility] Comment on above: Result Comment: Canc elled via OM: Order cancelled - Patient discharged Performed By: #### L 100.0100, L500.2500 ####[facility] [address] [place], [address] Potassium Normal 3.3-5.1 [facility] Comment on above: Result Comment: Canc elled via OM: Order cancelled - Patient discharged Performed By: #### L 100.0100, L500.2500 ####[facility] [address] [place], [address] Basic Metabolic Profile (BMP) Normal 133-145 [facility] Comment on above: Result Comment: Canc elled via OM: Order cancelled - Patient discharged Performed By: #### L 100.0100, L500.2500 ####[facility] [address] [place], [address] CBC W/Diff, Automatedon - Absolute Neut Normal 2.0-7.7 [facility] Comment on above: Result Comment: Canc elled via OM: Order cancelled - Patient discharged Performed By: #### L 100.0100, L500.2500 ####[facility] [address] [place], [address] HCT Normal 37-47 [facility] Comment on above: Result Comment: Canc elled via OM: Order cancelled - Patient discharged Performed By: #### L 100.0100, L500.2500 ####[facility] [address] [place], [address] HGB Normal 12.0-15.0 [facility] Comment on above: Result Comment: Canc elled via OM: Order cancelled - Patient discharged Performed By: #### L 100.0100, L500.2500 ####[facility] [address] [place], [address] MCH Normal 27.0-32.0 [facility] Comment on above: Result Comment: Canc elled via OM: Order cancelled - Patient discharged Performed By: #### L 100.0100, L500.2500 ####[facility] [address] [place], [address] MCHC Normal 32-36 [facility] Comment on above: Result Comment: Canc elled via OM: Order cancelled - Patient discharged Performed By: #### L 100.0100, L500.2500 ####[facility] [address] [place], [address] MCV Normal 81-99 [facility] Comment on above: Result Comment: Canc elled via OM: Order cancelled - Patient discharged Performed By: #### L 100.0100, L500.2500 ####[facility] [address] [place], [address] NEUT% Normal 47-70 [facility] Comment on above: Result Comment: Canc elled via OM: Order cancelled - Patient discharged Performed By: #### L 100.0100, L500.2500 ####[facility] [address] [place], [address] PLT Normal 150-450 [facility] Comment on above: Result Comment: Canc elled via OM: Order cancelled - Patient discharged Performed By: #### L 100.0100, L500.2500 ####[facility] [address] [place], [address] RBC Normal 4.2-5.4 [facility] Comment on above: Result Comment: Canc elled via OM: Order cancelled - Patient discharged Performed By: #### L 100.0100, L500.2500 ####[facility] [address] [place], [address] RDW CV Normal 11.6-14.6 [facility] Comment on above: Result Comment: Canc elled via OM: Order cancelled - Patient discharged Performed By: #### L 100.0100, L500.2500 ####[facility] [address] [place], [address] RDW SD Normal 35.1-43.9 [facility] Comment on above: Result Comment: Canc elled via OM: Order cancelled - Patient discharged Performed By: #### L 100.0100, L500.2500 ####[facility] [address] [place], [address] WBC Normal 4.4-11.0 [facility] Comment on above: Result Comment: Canc elled via OM: Order cancelled - Patient discharged Performed By: #### L 100.0100, L500.2500 ####[facility] [address] [place], [address] Respiratory Cultureon 2024 RESPC Mixed normal respira tory benjie. No Streptococcus pneumoniae, beta-hemolytic Streptococcus or Staphylococcus aureus isolated. Normal [facility] Comment on above: Performed By: #### M 100.2000, M100.2400 ####[facility] [address] [place], [address] Absolute lymphocyte countOrd ered By: Anastacia Bonilla on 12-12-2024 Lymphocytes Auto (Unsp spec) [#/Vol] 4.36 10*3/uL 0.83-4.51 [facility] Absolute neutrophil countOrd ered By: Anastacia Bonilla on 12-12-2024 Neutrophils (Bld) [#/Vol] 17.2 10*3/uL High 2.0-7.7 [facility] Absolute neutrophil count 17.2 X10^3/uL High 2.0-7.7 [facility] Anion gap [Moles/Vol]Ordered By: Anastacia Bonilla on 12-12-2024 Anion gap in Serum or Plasma 8 02-09 [facility] Anion gap in Serum or Plasma Ordered By: Anastacia Bonilla on 12-12-2024 Anion gap [Moles/Vol] 8 mmol/L 02-09 [facility] BUN/creatinine ratioOrdered By: Anastacia Bonilla on 12-12-2024 Urea nitrogen/Creatinine [Mass ratio] 32.0 mg/mg High 07-17 [facility] BUN/creatinine ratio 32.0 RATIO High 07-17 [facility] Band form neutrophils/100 WB C (Bld)Ordered By: Anastacia Bonilla on 12-12-2024 Blood band neutrophil count as percentage of total leukocytes 2 % 0- [facility] Basic Metabolic Profile (BMP )on 12-12-2024 BUN/CRE 32.0 RATIO High 07-17 [facility] Comment on above: Performed By: #### L 500.2500, L100.0100 ####[facility] [address] [place], [address] Calcium [Mass/Vol] 8.9 mg/dL Normal 7.6-11.0 [facility] Comment on above: Performed By: #### L 500.2500, L100.0100 ####[facility] [address] [place], [address] Chloride [Moles/Vol] 95 mmol/L Low 98-108 [facility] Comment on above: Performed By: #### L 500.2500, L100.0100 ####[facility] [address] [place], [address] CO2 [Moles/Vol] 34.4 mmol/L High 21.0-32.0 [facility] Comment on above: Performed By: #### L 500.2500, L100.0100 ####[facility] [address] [place], [address] Creatinine [Mass/Vol] 0.77 mg/dL Normal 0.70-1.20 [facility] Comment on above: Performed By: #### L 500.2500, L100.0100 ####[facility] [address] [place], [address] ECRCL 63.47 ml/min Normal 50-250 [facility] Comment on above: Performed By: #### L 500.2500, L100.0100 ####[facility] [address] [place], [address] GAP 8 Normal 5-15 [facility] Comment on above: Performed By: #### L 500.2500, L100.0100 ####[facility] [address] [place], [address] GFR/1.73 sq M.predicted among non-blacks MDRD (S/P/Bld) [Vol rate/Area] 87 mL/min/{1.73_m2} Normal >60 [facility] Comment on above: Result Comment: mL/m in/1.73m2 CKD-EPI Creatinine Equation (2020) Performed By: #### L 500.2500, L100.0100 ####[facility] [address] [place], [address] Glucose [Mass/Vol] 80 mg/dL Normal 70-99 [facility] Comment on above: Performed By: #### L 500.2500, L100.0100 ####[facility] [address] [place], [address] Potassium [Moles/Vol] 4.1 mmol/L Normal 3.3-5.1 [facility] Comment on above: Performed By: #### L 500.2500, L100.0100 ####[facility] [address] [place], [address] Sodium [Moles/Vol] 137 mmol/L Normal 133-145 [facility] Comment on above: Performed By: #### L 500.2500, L100.0100 ####[facility] [address] [place], [address] Urea nitrogen [Mass/Vol] 25 mg/dL High 4-19 [facility] Comment on above: Performed By: #### L 500.2500, L100.0100 ####[facility] [address] [place], [address] Blood band neutrophil count as percentage of total leukocytesOrdered By: Anastacia Bonilla on 12-12-2024 Band form neutrophils/100 WBC (Bld) 2 % 0-5 [facility] Blood lymphocytes/100 leukoc ytesOrdered By: Anastacia Bonlila on 12-12-2024 Lymphocytes/100 WBC (Bld) 17 % Low 19-41 [facility] Blood manual differential co mment interpretation (narrative result)Ordered By: Anastacia Bonilla on 12-12-2024 Manual differential comment Geovany (Bld) [Interp] SCANNED [facility] Blood metamyelocytes/100 scott kocytesOrdered By: Anastacia Bonilla on 12-12-2024 Metamyelocytes/100 WBC (Bld) 1 % 0-1 [facility] Blood monocytes/100 leukocyt esOrdered By: Anastacia Bonilla on 12-12-2024 Monocytes/100 WBC (Bld) 5 % 0-10 [facility] Blood segmented neutrophils/ 100 leukocytesOrdered By: Anastacia Bonilla on 12-12-2024 Segmented neutrophils/100 WBC (Bld) 65 % 47-70 [facility] Calcium [Mass/Vol]Ordered By : Anastacia Bonilla on 12-12-2024 Serum or plasma calcium measurement (mass/volume) 8.9 mg/dL 7.6-11.0 [facility] Carbon dioxide, total [Moles /volume] in Central venous bloodOrdered By: Anastacia Bonilla on 12-12-2024 CO2 [Moles/Vol] 34.4 mmol/L High 21.0-32.0 [facility] Carbon dioxide, total [Moles/volume] in Central venous blood 34.4 mmol/L High 21.0-32.0 [facility] Cells counted Molgen (Bld/Ti ss) [#]Ordered By: Anastacia Bonilla on 12-12-2024 Differential Total Cells Counted 100 MANUAL DIFF [facility] Total cell count 100 MANUAL DIFF [facility] Chloride assayOrdered By: Na emily Bonilla on 12-12-2024 Chloride [Moles/Vol] 95 mmol/L Low 98-108 [facility] Chloride assay 95 mmol/L Low 98-108 [facility] Creatinine [Mass/Vol]Ordered By: Anastacia Bonilla on 12-12-2024 Serum creatinine measurement (mass/volume) 0.77 mg/dL 0.70-1.20 [facility] Discharge Instructionon 11-26 Discharge Instruction Normal [facility] EGD Reporton 12-12-2024 EGD Report Normal [facility] Erythrocyte distribution wid th (RBC) [Ratio]Ordered By: Anastacia Bonilla on 12-12-2024 Erythrocyte distribution width ratio 14.6 % 11.6-14.6 [facility] Erythrocyte distribution wid th ratioOrdered By: Anastacia Bonilla on 12-12-2024 Erythrocyte distribution width (RBC) [Ratio] 14.6 % 11.6-14.6 [facility] Erythrocyte distribution wid th standard deviationOrdered By: Anastacia Bonilla on 12-12-2024 Erythrocyte distribution width (RBC) [Entitic vol] 46.5 fL High 35.1-43.9 [facility] Erythrocyte distribution width (RBC) [Ratio] 46.5 fl High 35.1-43.9 [facility] Erythrocyte distribution width standard deviation 46.5 fl High 35.1-43.9 [facility] Estimation of creatinine binu aranceOrdered By: Anastacia Bonilla on 12-12-2024 Estimated Creatinine Clearance Calc 63.47 ml/min 50-250 [facility] Estimation of creatinine clearance 63.47 ml/min 50-250 [facility] GFR/1.73 sq M.predicted gregory g non-blacks MDRD (S/P/Bld) [Vol rate/Area]Ordered By: Anastacia Bonilla on 12-12-2024 Estimated GFR (MDRD) Non-Af Amer 87 >60 [facility] Comment on above: mL/min/1.73m2 CKD-EP I Creatinine Equation (2020) Glomerular filtration rate (GFR) estimation/1.73 sq m using serum, plasma, or whole b 87 >60 [facility] Glomerular filtration rate ( GFR) estimation/1.73 sq m using serum, plasma, or whole bOrdered By: Anastacia Bonilla on 12-12-2024 GFR/1.73 sq M.predicted among non-blacks MDRD (S/P/Bld) [Vol rate/Area] 87 mL/min/{1.73_m2} >60 [facility] Glucose [Mass/Vol]Ordered By : Anastacia Bonilla on 12-12-2024 Serum glucose measurement (mass/volume) 80 mg/dL 70-99 [facility] Hematocrit Auto (Bld) [Volum e fraction]Ordered By: Anastacia Bonilla on 12-12-2024 Hematocrit (Bld) [Volume fraction] 44.4 % 37-47 [facility] Automated blood hematocrit (percentage) 44.4 % 37-47 [facility] Hemoglobin measurementOrdere d By: Anastacia Bonilla on 12-12-2024 Hemoglobin (Bld) [Mass/Vol] 13.7 g/dL 12.0-15.0 [facility] Hemoglobin measurement 13.7 g/dL 12.0-15.0 [facility] Lymphocytes Auto (Unsp spec) [#/Vol]Ordered By: Anastacia Bonilla on 12-12-2024 Lymphocytes (Bld) [#/Vol] 4.36 10*3/uL 0.83-4.51 [facility] Absolute lymphocyte count 4.36 X10^3/uL 0.83-4.51 [facility] Lymphocytes/100 WBC (Bld)Ord ered By: Anastacia Bonilla on 12-12-2024 Blood lymphocytes/100 leukocytes 17 % Low 19-41 [facility] MCV (RBC) [Entitic vol]Order ed By: Anastacia Bonilla on 12-12-2024 MCV (mean corpuscular volume) determination 86.2 fL 81-99 [facility] MCV (mean corpuscular volume ) determinationOrdered By: Anastacia Bonilla on 12-12-2024 MCV (RBC) [Entitic vol] 86.2 fL 81-99 [facility] MR/POSTOP.ANEon 12-12-2024 MR/POSTOP.ANE Normal [facility] MR/VOQUMQRI1wd 12-12-2024 MR/POSTOPAN2 Normal [facility] Manual differential comment Geovany (Bld) [Interp]Ordered By: Anastacia Bonilla on 12-12-2024 Differential Comment SCANNED [facility] Comment on above: LYMPHOCYTOSIS PRESEN TMONOCYTOSIS PRESENT Blood manual differential comment interpretation (narrative result) SCANNED [facility] Mean corpuscular hemoglobin (MCH) determinationOrdered By: Anastacia Bonilla on 12-12-2024 MCH (RBC) [Entitic mass] 26.6 pg Low 27.0-32.0 [facility] Mean corpuscular hemoglobin (MCH) determination 26.6 pg Low 27.0-32.0 [facility] Mean corpuscular hemoglobin concentration (MCHC) determinationOrdered By: Anastacia Bonilla on 12-12-2024 MCHC (RBC) [Mass/Vol] 30.9 g/dL Low 32-36 [facility] Mean corpuscular hemoglobin concentration (MCHC) determination 30.9 g/dL Low 32-36 [facility] Mean platelet volume determi nationOrdered By: Anastacia Bonilla on 12-12-2024 Platelet mean volume (Bld) [Entitic vol] 10.1 fL 6.2-12.0 [facility] Mean platelet volume determination 10.1 fl 6.2-12.0 [facility] Metamyelocytes/100 WBC (Bld) Ordered By: Anastacia Bonilla on 12-12-2024 Blood metamyelocytes/100 leukocytes 1 % 0-1 [facility] Monocytes/100 WBC (Bld)Order ed By: Anastacia Bonilla on 12-12-2024 Blood monocytes/100 leukocytes 5 % 0-10 [facility] Myelocyte %Ordered By: Anastacia Bonilla on 12-12-2024 Myelocytes/100 WBC (Bld) 7 % High 0-0 [facility] Myelocyte % 7 % High 0-0 [facility] Neutrophil percentageOrdered By: Anastacia Bonilla on 12-12-2024 Neutrophils (%) (Auto) Not Reportable [facility] Neutrophil percentage Not Reportable [facility] Pathologist review Geovany (Unsp spec) [Interp]Ordered By: Anastacia Bonilla on 12-12-2024 Differential Pathologist's Review [facility] Review by pathologist [facility] Review by pathologist N/A [facility] Platelet countOrdered By: Emily Bonilla on 12-12-2024 Platelets (Bld) [#/Vol] 345 10*3/uL 150-450 [facility] Platelet count 345 K/mm3 150-450 [facility] Potassium (Unsp spec) [Mass/ Vol]Ordered By: Anastacia Bonilla on 12-12-2024 Potassium [Moles/Vol] 4.1 mmol/L 3.3-5.1 [facility] Potassium measurement (mass/volume) 4.1 mmol/L 3.3-5.1 [facility] Potassium measurement (mass/ volume)Ordered By: Anastacia Bonilla on 12-12-2024 Potassium (Unsp spec) [Mass/Vol] 4.1 mmol/L 3.3-5.1 [facility] RBC Auto (Bld) [#/Vol]Ordere d By: Anastacia Bonilla on 12-12-2024 RBC (Bld) [#/Vol] 5.15 10*6/uL 4.2-5.4 [facility] Automated blood erythrocyte count 5.15 M/mm3 4.2-5.4 [facility] Review by pathologistOrdered By: Anastacia Bonilla on 12-12-2024 Pathologist review Geovany (Unsp spec) [Interp] N/A [facility] Segmented neutrophils/100 WB C (Bld)Ordered By: Anastacia Bonilla on 12-12-2024 Neutrophils/100 WBC (Bld) 65 % 47-70 [facility] Blood segmented neutrophils/100 leukocytes 65 % 47-70 [facility] Serum creatinine measurement (mass/volume)Ordered By: Anastacia Bonilla on 12-12-2024 Creatinine [Mass/Vol] 0.77 mg/dL 0.70-1.20 [facility] Serum glucose measurement (m ass/volume)Ordered By: Anastacia Bonilla on 12-12-2024 Glucose [Mass/Vol] 80 mg/dL 70-99 [facility] Serum or plasma calcium esthela urement (mass/volume)Ordered By: Anastacia Bonilla on 12-12-2024 Calcium [Mass/Vol] 8.9 mg/dL 7.6-11.0 [facility] Serum or plasma urea nitroge n measurement (mass/volume)Ordered By: Anastacia Bonilla on 12-12-2024 Urea nitrogen [Mass/Vol] 25 mg/dL High 01-14 [facility] Sodium levelOrdered By: Anastacia Bonilla on 12-12-2024 Sodium [Moles/Vol] 137 mmol/L 133-145 [facility] Sodium level 137 mmol/L 133-145 [facility] Total cell countOrdered By: Anastacia Bonilla on 12-12-2024 Cells counted Molgen (Bld/Tiss) [#] 100 MANUAL DIFF [facility] Urea nitrogen [Mass/Vol]Orde red By: Anastacia Bonilla on 12-12-2024 Serum or plasma urea nitrogen measurement (mass/volume) 25 mg/dL High 01-14 [facility] White blood cell (WBC) count Ordered By: Anastacia Bonilla on 12-12-2024 WBC (Bld) [#/Vol] 25.7 10*3/uL High 4.4-11.0 [facility] White blood cell (WBC) count 25.7 K/mm3 High 4.4-11.0 [facility] Basic Metabolic Profile (BMP )on 12-11-2024 BUN/CRE 36.7 RATIO High 10-20 [facility] Comment on above: Performed By: #### L 100.0100, L500.2500 ####[facility] [address] [place], [address] Calcium [Mass/Vol] 9.0 mg/dL Normal 7.6-11.0 [facility] Comment on above: Performed By: #### L 100.0100, L500.2500 ####[facility] [address] [place], [address] Chloride [Moles/Vol] 96 mmol/L Low 98-108 [facility] Comment on above: Performed By: #### L 100.0100, L500.2500 ####[facility] [address] [place], [address] CO2 [Moles/Vol] 27.6 mmol/L Normal 21.0-32.0 [facility] Comment on above: Performed By: #### L 100.0100, L500.2500 ####[facility] [address] [place], [address] Creatinine [Mass/Vol] 0.79 mg/dL Normal 0.70-1.20 [facility] Comment on above: Performed By: #### L 100.0100, L500.2500 ####[facility] [address] [place], [address] ECRCL 61.86 ml/min Normal 50-250 [facility] Comment on above: Performed By: #### L 100.0100, L500.2500 ####[facility] [address] [place], [address] GAP 13 Normal 5-15 [facility] Comment on above: Performed By: #### L 100.0100, L500.2500 ####[facility] [address] [place], [address] GFR/1.73 sq M.predicted among non-blacks MDRD (S/P/Bld) [Vol rate/Area] 85 mL/min/{1.73_m2} Normal >60 [facility] Comment on above: Result Comment: mL/m in/1.73m2 CKD-EPI Creatinine Equation (2020) Performed By: #### L 100.0100, L500.2500 ####[facility] [address] [place], [address] Glucose [Mass/Vol] 79 mg/dL Normal 70-99 [facility] Comment on above: Performed By: #### L 100.0100, L500.2500 ####[facility] [address] [place], [address] Potassium [Moles/Vol] 4.4 mmol/L Normal 3.3-5.1 [facility] Comment on above: Performed By: #### L 100.0100, L500.2500 ####[facility] [address] [place], [address] Sodium [Moles/Vol] 137 mmol/L Normal 133-145 [facility] Comment on above: Performed By: #### L 100.0100, L500.2500 ####[facility] [address] [place], [address] Urea nitrogen [Mass/Vol] 29 mg/dL High 4-19 [facility] Comment on above: Performed By: #### L 100.0100, L500.2500 ####[facility] [address] [place], [address] Gram Stainon 12-11-2024 GS Acceptable Specimen? Yes (<25 Epithelial cells per/lpf) Gram Stain 1+ Gram positive cocci 1+ Epithelial cells No White Blood Cells Normal [facility] Comment on above: Performed By: #### M 100.2000, M100.2400 ####[facility] [address] [place], [address] Laboratory - Hematology and Cell countsOrdered By: Anastacia Bonilla on 12-11-2024 Anisocytosis Ql (Bld) 1+ [facility] Microcytosis evaluation pane lOrdered By: Anastacia Bonilla on 12-11-2024 Microcytosis 1+ [facility] Microcytosis evaluation panel 1+ [facility] Ovalocyte detectionOrdered B y: Anastacia Bonilla on 12-11-2024 Ovalocytes LM Ql (Bld) 1+ [facility] Ovalocytes LM Ql (Bld)Ordere d By: Anastacia Bonilla on 12-11-2024 Ovalocytes 1+ [facility] Platelet estimateOrdered By: Anastacia Bonilla on 12-11-2024 Platelets LM Ql (Bld) ADEQUATE ADEQ [facility] Platelets LM Ql (Bld)Ordered By: Anastacia Bonilla on 12-11-2024 Platelet [facility] Platelet estimate ADEQUATE ADEQ [facility] Basic Metabolic Profile (BMP )on 12-10-2024 BUN/CRE 41.3 RATIO High 10-20 [facility] Comment on above: Performed By: #### L 100.0100, L500.2500 ####[facility] [address] [place], [address] Calcium [Mass/Vol] 9.5 mg/dL Normal 7.6-11.0 [facility] Comment on above: Performed By: #### L 100.0100, L500.2500 ####[facility] [address] [place], [address] Chloride [Moles/Vol] 97 mmol/L Low 98-108 [facility] Comment on above: Performed By: #### L 100.0100, L500.2500 ####[facility] [address] [place], [address] CO2 [Moles/Vol] 28.4 mmol/L Normal 21.0-32.0 [facility] Comment on above: Performed By: #### L 100.0100, L500.2500 ####[facility] [address] [place], [address] Creatinine [Mass/Vol] 0.82 mg/dL Normal 0.70-1.20 [facility] Comment on above: Performed By: #### L 100.0100, L500.2500 ####[facility] [address] [place], [address] ECRCL 59.60 ml/min Normal 50-250 [facility] Comment on above: Performed By: #### L 100.0100, L500.2500 ####[facility] [address] [place], [address] GAP 11 Normal 5-15 [facility] Comment on above: Performed By: #### L 100.0100, L500.2500 ####[facility] [address] [place], [address] GFR/1.73 sq M.predicted among non-blacks MDRD (S/P/Bld) [Vol rate/Area] 81 mL/min/{1.73_m2} Normal >60 [facility] Comment on above: Result Comment: mL/m in/1.73m2 CKD-EPI Creatinine Equation (2020) Performed By: #### L 100.0100, L500.2500 ####[facility] [address] [place], [address] Glucose [Mass/Vol] 157 mg/dL High 70-99 [facility] Comment on above: Performed By: #### L 100.0100, L500.2500 ####[facility] [address] [place], [address] Potassium [Moles/Vol] 5.2 mmol/L High 3.3-5.1 [facility] Comment on above: Performed By: #### L 100.0100, L500.2500 ####[facility] [address] [place], [address] Sodium [Moles/Vol] 136 mmol/L Normal 133-145 [facility] Comment on above: Performed By: #### L 100.0100, L500.2500 ####[facility] [address] [place], [address] Urea nitrogen [Mass/Vol] 34 mg/dL High 4-19 [facility] Comment on above: Performed By: #### L 100.0100, L500.2500 ####[facility] [address] [place], [address] Blood eosinophils/100 leukoc ytesOrdered By: Anastacia Bonilla on 12-10-2024 Eosinophils/100 WBC (Bld) 1 % 0-5 [facility] Eosinophils/100 WBC (Bld)Ord ered By: Anastacia Bonilla on 12-10-2024 Blood eosinophils/100 leukocytes 1 % 0-5 [facility] Gram stainOrdered By: Ever Aguayo on 12-10-2024 Microscopic observation Gram stain Nom (Unsp spec) [facility] Microbial respiratory cultur eOrdered By: Aleta Aguayo on 12-10-2024 Microorganism identified Cx Nom (Unsp spec) or Staphylococcus aureus isolated. [facility] Microorganism identified Cx Nom (Unsp spec)Ordered By: Aleta Aguayo on 12-10-2024 Microbial respiratory culture or Staphylococcus aureus isolated. [facility] Platelet morphologyOrdered B y: Anastacia Bonilla on 12-10-2024 Platelet morphology finding Nom (Bld) G [facility] Platelet morphology finding Nom (Bld)Ordered By: Anastacia Bonilla on 12-10-2024 Platelet Morphology Comment G [facility] Platelet morphology G [facility] Basic Metabolic Profile (BMP )on 12-09-2024 BUN/CRE 40.8 RATIO High 10-20 [facility] Comment on above: Performed By: #### L 500.2500 ####[facility] [address] [place], [address] Calcium [Mass/Vol] 9.8 mg/dL Normal 7.6-11.0 [facility] Comment on above: Performed By: #### L 500.2500 ####[facility] [address] [place], [address] Chloride [Moles/Vol] 96 mmol/L Low 98-108 [facility] Comment on above: Performed By: #### L 500.2500 ####[facility] [address] [place], [address] CO2 [Moles/Vol] 27.3 mmol/L Normal 21.0-32.0 [facility] Comment on above: Performed By: #### L 500.2500 ####[facility] [address] [place], [address] Creatinine [Mass/Vol] 0.85 mg/dL Normal 0.70-1.20 [facility] Comment on above: Performed By: #### L 500.2500 ####[facility] [address] [place], [address] ECRCL 57.49 ml/min Normal 50-250 [facility] Comment on above: Performed By: #### L 500.2500 ####[facility] [address] [place], [address] GAP 13 Normal 5-15 [facility] Comment on above: Performed By: #### L 500.2500 ####[facility] [address] [place], [address] GFR/1.73 sq M.predicted among non-blacks MDRD (S/P/Bld) [Vol rate/Area] 78 mL/min/{1.73_m2} Normal >60 [facility] Comment on above: Result Comment: mL/m in/1.73m2 CKD-EPI Creatinine Equation (2020) Performed By: #### L 500.2500 ####[facility] [address] [place], [address] Glucose [Mass/Vol] 176 mg/dL High 70-99 [facility] Comment on above: Performed By: #### L 500.2500 ####[facility] [address] [place], [address] Potassium [Moles/Vol] 5.0 mmol/L Normal 3.3-5.1 [facility] Comment on above: Performed By: #### L 500.2500 ####[facility] [address] [place], [address] Sodium [Moles/Vol] 135 mmol/L Normal 133-145 [facility] Comment on above: Performed By: #### L 500.2500 ####[facility] [address] [place], [address] Urea nitrogen [Mass/Vol] 35 mg/dL High 4-19 [facility] Comment on above: Performed By: #### L 500.2500 ####[facility] [address] [place], [address] Erythrocyte morphology asses smentOrdered By: Gonzalo Sebastian on 12-09-2024 RBC morphology finding Nom (Bld) NORM C+C NORMAL NORM C&C [facility] RBC morphology finding Nom ( Bld)Ordered By: Gonzalo Sebastian on 12-09-2024 Red Blood Cell Morphology NORM C+C NORMAL NORM C&C [facility] Erythrocyte morphology assessment NORM C+C NORMAL NORM C&C [facility] CBC W/Diff, Automatedon 11-26 Absolute Neut Normal 2.0-7.7 [facility] Comment on above: Result Comment: Canc elled via OM: Order edited - Discontinuing original order Performed By: #### L 100.0100 ####[facility] [address] [place], [address] HCT Normal 37-47 [facility] Comment on above: Result Comment: Canc elled via OM: Order edited - Discontinuing original order Performed By: #### L 100.0100 ####[facility] [address] [place], [address] HGB Normal 12.0-15.0 [facility] Comment on above: Result Comment: Canc elled via OM: Order edited - Discontinuing original order Performed By: #### L 100.0100 ####[facility] [address] [place], [address] MCH Normal 27.0-32.0 [facility] Comment on above: Result Comment: Canc elled via OM: Order edited - Discontinuing original order Performed By: #### L 100.0100 ####[facility] [address] [place], [address] MCHC Normal 32-36 [facility] Comment on above: Result Comment: Canc elled via OM: Order edited - Discontinuing original order Performed By: #### L 100.0100 ####[facility] [address] [place], [address] MCV Normal 81-99 [facility] Comment on above: Result Comment: Canc elled via OM: Order edited - Discontinuing original order Performed By: #### L 100.0100 ####[facility] [address] [place], [address] NEUT% Normal 47-70 [facility] Comment on above: Result Comment: Canc elled via OM: Order edited - Discontinuing original order Performed By: #### L 100.0100 ####[facility] [address] [place], [address] PLT Normal 150-450 [facility] Comment on above: Result Comment: Canc elled via OM: Order edited - Discontinuing original order Performed By: #### L 100.0100 ####[facility] [address] [place], [address] RBC Normal 4.2-5.4 [facility] Comment on above: Result Comment: Canc elled via OM: Order edited - Discontinuing original order Performed By: #### L 100.0100 ####[facility] [address] [place], [address] RDW CV Normal 11.6-14.6 [facility] Comment on above: Result Comment: Canc elled via OM: Order edited - Discontinuing original order Performed By: #### L 100.0100 ####[facility] [address] [place], [address] RDW SD Normal 35.1-43.9 [facility] Comment on above: Result Comment: Canc elled via OM: Order edited - Discontinuing original order Performed By: #### L 100.0100 ####[facility] [address] [place], [address] WBC Normal 4.4-11.0 [facility] Comment on above: Result Comment: Canc elled via OM: Order edited - Discontinuing original order Performed By: #### L 100.0100 ####[facility] [address] [place], [place], [address] Modified Barium Swallow Stud yon 12-08-2024 Modified Barium Swallow Study Normal [facility] Influenza virus A and B and SARS-CoV-2 (COVID-19) and Respiratory syncytial virus RNAOrdered By: Gonzalo Sebastian on 12-07-2024 SARS-CoV-2 (COVID-19) RNA KANDY+probe Ql (Unsp spec) [facility] L503.7505on 12-07-2024 Natriuretic peptide B (Bld) [Mass/Vol] 3318 pg/mL High <=900 [facility] Comment on above: Result Comment: Hear t Failure Unlikely: < 300 pg/mLHeart Failure Likely< 50 Years: > 450 pg/mL50-75 Years: > 900 pg/mL>75 Years: > 1800 pg/mL Performed By: #### L 503.7505 ####[facility] [address] [place], [place], [address] Laboratory - Chemistry and C hemistry - challengeOrdered By: Gonzalo Sebastian on 12-07-2024 Natriuretic peptide B (Bld) [Mass/Vol] 3318 pg/mL High <900 [facility] Comment on above: Heart Failure Unlike ly: < 300 pg/mLHeart Failure Likely< 50 Years: > 450 pg/mL50-75 Years: > 900 pg/mL>75 Years: > 1800 pg/mL M100.678on 12-07-2024 M100.678 Pending SARS-CoV-2 (COVID 19) Negative INFLUENZA A Negative INFLUENZA B Negative RSV PCR Negative Normal [facility] Comment on above: Performed By: #### M 100.678 ####[facility] [address] [facility] [place], [place], [address] No Panel InformationOrdered By: Gonzalo Sebastian on 12-07-2024 3318 pg/mL High <900 [facility] Absolute neutrophil countOrd ered By: Gonzalo Sebastian on 12-06-2024 Neutrophils (Bld) [#/Vol] 23.2 10*3/uL High 2.0-7.7 [facility] Anion gap in Serum or Plasma Ordered By: Gonzalo Sebastian on 12-06-2024 Anion gap [Moles/Vol] 13 mmol/L 5-15 [facility] Automated lymphocyte count a s percentage of total leukocytesOrdered By: Gonzalo Sebastian on 12-06-2024 Lymphocytes/100 WBC Auto (Unsp spec) 4.5 % Low 19-41 [facility] BUN/creatinine ratioOrdered By: Gonzalo Sebastian on 12-06-2024 Urea nitrogen/Creatinine [Mass ratio] 27.8 mg/mg High 10-20 [facility] Basic Metabolic Profile (BMP )on 12-06-2024 BUN/CRE 27.8 RATIO High 10-20 [facility] Comment on above: Performed By: #### L 503.7505, L500.2500, L100.0100, L509.7001 ####[facility] [address] [place], [address] Calcium [Mass/Vol] 9.3 mg/dL Normal 7.6-11.0 [facility] Comment on above: Performed By: #### L 503.7505, L500.2500, L100.0100, L509.7001 ####[facility] [address] [place], [address] Chloride [Moles/Vol] 98 mmol/L Normal 98-108 [facility] Comment on above: Performed By: #### L 503.7505, L500.2500, L100.0100, L509.7001 ####[facility] [address] [place], [address] CO2 [Moles/Vol] 23.2 mmol/L Normal 21.0-32.0 [facility] Comment on above: Performed By: #### L 503.7505, L500.2500, L100.0100, L509.7001 ####[facility] [address] [place], [address] Creatinine [Mass/Vol] 1.57 mg/dL High 0.70-1.20 [facility] Comment on above: Performed By: #### L 503.7505, L500.2500, L100.0100, L509.7001 ####[facility] [address] [place], [address] ECRCL 31.13 ml/min Low 50-250 [facility] Comment on above: Performed By: #### L 503.7505, L500.2500, L100.0100, L509.7001 ####[facility] [address] [place], [address] GAP 13 Normal 5-15 [facility] Comment on above: Performed By: #### L 503.7505, L500.2500, L100.0100, L509.7001 ####[facility] [address] [place], [address] GFR/1.73 sq M.predicted among non-blacks MDRD (S/P/Bld) [Vol rate/Area] 37 mL/min/{1.73_m2} Low >60 [facility] Comment on above: Result Comment: mL/m in/1.73m2 CKD-EPI Creatinine Equation (2020) Performed By: #### L 503.7505, L500.2500, L100.0100, L509.7001 ####[facility] [address] [place], [address] Glucose [Mass/Vol] 166 mg/dL High 70-99 [facility] Comment on above: Performed By: #### L 503.7505, L500.2500, L100.0100, L509.7001 ####[facility] [address] [place], [address] Potassium [Moles/Vol] 4.9 mmol/L Normal 3.3-5.1 [facility] Comment on above: Performed By: #### L 503.7505, L500.2500, L100.0100, L509.7001 ####[facility] [address] [place], [address] Sodium [Moles/Vol] 134 mmol/L Normal 133-145 [facility] Comment on above: Performed By: #### L 503.7505, L500.2500, L100.0100, L509.7001 ####[facility] [address] [place], [address] Urea nitrogen [Mass/Vol] 44 mg/dL High 4-19 [facility] Comment on above: Performed By: #### L 503.7505, L500.2500, L100.0100, L509.7001 ####[facility] [address] [place], [address] Basophil percentageOrdered B y: Gonzalo Sebastian on 12-06-2024 Basophils/100 WBC (Bld) 0.2 % 0-1 [facility] Basophil percentage 0.2 % 0-1 [facility] Carbon dioxide, total [Moles /volume] in Central venous bloodOrdered By: Gonzalo Sebastian on 12-06-2024 CO2 [Moles/Vol] 23.2 mmol/L 21.0-32.0 [facility] Chloride assayOrdered By: Soares on 12-06-2024 Chloride [Moles/Vol] 98 mmol/L 98-108 [facility] Echocardiogram study reportO rdered By: Bridgette Gaxiola on 12-06-2024 Study report [facility] [address] [place] [address] Echo Complete 12/05/24 1413 MR#: [id number] Acct: [id number] Name: GRACIE BANUELOS Rep #:[id number] : 1965 59 From: Bridgette lopez MD Attending Dr: Dr. Yrn Kahn DO Status: ADM IN Ordering Dr: Gonzalo Sebastian DO Date: 07/22 Location: U Sex: F C Admitted: 12/04/24 Reason For [...] ml EF(MOD-sp4): 62.9 % EF(sp4-el): 64.5 % __ SV(sp4-el): 35.7 ml LA A4 area: [...] cm2 KENYETTA(I,D): 2.7 cm2 KENYETTA(V,D): 2.5 cm2 _ LV V1 max: 133.6 cm/sec SV(LVOT): 59.7 [...] Dictated: 12/05/24 1413 Date Transcribed: 12/06/24 1251 Charge Entry: Signed [facility] Work Phone: Eosinophil percentageOrdered By: Gonzalo Sebastian on 12-06-2024 Eosinophils/100 WBC (Bld) 0.0 % 0-5 [facility] Eosinophil percentage 0.0 % 0-5 [facility] Erythrocyte distribution wid th ratioOrdered By: Gonzalo Sebastian on 12-06-2024 Erythrocyte distribution width (RBC) [Ratio] 15.3 % High 11.6-14.6 [facility] Erythrocyte distribution wid th standard deviationOrdered By: Gonzalo Sebastian on 12-06-2024 Erythrocyte distribution width (RBC) [Entitic vol] 47.7 fL High 35.1-43.9 [facility] Estimation of creatinine binu aranceOrdered By: Gonzalo Sebastian on 12-06-2024 Estimated Creatinine Clearance Calc 31.13 ml/min Low 50-250 [facility] GFR/1.73 sq M.predicted gregory g non-blacks MDRD (S/P/Bld) [Vol rate/Area]Ordered By: Gonzalo Sebastian on 12-06-2024 Estimated GFR (MDRD) Non-Af Amer 37 Low >60 [facility] Comment on above: mL/min/1.73m2 CKD-EP I Creatinine Equation (2020) Hematocrit Auto (Bld) [Volum e fraction]Ordered By: Gonzalo Sebastian on 12-06-2024 Hematocrit (Bld) [Volume fraction] 39.6 % 37-47 [facility] Hemoglobin measurementOrdere d By: Gonzalo Sebastian on 12-06-2024 Hemoglobin (Bld) [Mass/Vol] 12.6 g/dL 12.0-15.0 [facility] Immature granulocytes/100 WB C Auto (Bld)Ordered By: Gonzalo Sebastian on 12-06-2024 Immature granulocytes/100 WBC (Bld) 0.900 % 0.0-0.9 [facility] Comment on above: IG% - Immature Granu locytes (promyelocytes, myelocytes and metamyelocytes) > 1% indicates that a LEFT SHIFT is Present. Automated immature granulocyte percentage 0.900 % 0.0-0.9 [facility] L503.7505on 12-06-2024 Natriuretic peptide B (Bld) [Mass/Vol] 2014 pg/mL High <=900 [facility] Comment on above: Result Comment: Hear t Failure Unlikely: < 300 pg/mLHeart Failure Likely< 50 Years: > 450 pg/mL50-75 Years: > 900 pg/mL>75 Years: > 1800 pg/mL Performed By: #### L 503.7505, L500.2500, L100.0100, L509.7001 ####[facility] [address] [place], [address] L509.7001on 12-06-2024 Procalcitonin 0.31 ng/mL High <=0.10 [facility] Comment on above: Result Comment: Inte [...] By: #### L 503.7505, L500.2500, L100.0100, L509.7001 ####[facility] [address] [place], [place], [address] Lymphocytes Auto (Unsp spec) [#/Vol]Ordered By: Gonzalo Sebastian on 12-06-2024 Lymphocytes (Bld) [#/Vol] 1.17 10*3/uL 0.83-4.51 [facility] Lymphocytes/100 WBC Auto (Un sp spec)Ordered By: Gonzalo Sebastian on 12-06-2024 Lymphocytes/100 WBC (Bld) 4.5 % Low 19- [facility] Automated lymphocyte count as percentage of total leukocytes 4.5 % Low -41 [facility] MCV (mean corpuscular volume ) determinationOrdered By: Gonzalo Sebastian on 12-06-2024 MCV (RBC) [Entitic vol] 85.7 fL 81-99 [facility] Mean corpuscular hemoglobin (MCH) determinationOrdered By: Gonzalo Sebastian on 12-06-2024 MCH (RBC) [Entitic mass] 27.3 pg 27.0-32.0 [facility] Mean corpuscular hemoglobin concentration (MCHC) determinationOrdered By: Gonzalo Sebastian on 12-06-2024 MCHC (RBC) [Mass/Vol] 31.8 g/dL Low 32-36 [facility] Mean platelet volume determi nationOrdered By: Gonzalo Sebastian on 12-06-2024 Platelet mean volume (Bld) [Entitic vol] 10.5 fL 6.2-12.0 [facility] Monocyte percentageOrdered B y: Gonzalo Sebastian on 12-06-2024 Monocytes/100 WBC (Bld) 6.0 % 0-10 [facility] Monocyte percentage 6.0 % 0-10 [facility] Neutrophil percentageOrdered By: Gonzalo Sebastian on 12-06-2024 Neutrophils/100 WBC (Bld) 88.4 % High 47-70 [facility] No Panel InformationOrdered By: Gonzaol Sebastian on 12-06-2024 Procalcitonin 0.31 ng/mL High <0.11 [facility] Comment on above: Interpretation:<0.10 -0.25 ng/mL: [...] of the patient. 0.31 ng/mL High <0.11 [facility] Nucleated red blood cell per centageOrdered By: Gonzalo Sebastian on 12-06-2024 Nucleated RBC/100 WBC (Bld) [Ratio] 0 % 0-5 [facility] Nucleated red blood cell percentage 0 % 0-5 [facility] Pathologist review Geovany (Unsp spec) [Interp]Ordered By: Gonzalo Sebastian on 12-06-2024 Differential Pathologist's Review May foll [facility] Platelet countOrdered By: Soares on 12-06-2024 Platelets (Bld) [#/Vol] 260 10*3/uL 150-450 [facility] Platelets LM Ql (Bld)Ordered By: Gonzalo Sebastian on 12-06-2024 Platelet Estimate A ADEQ [facility] Potassium (Unsp spec) [Mass/ Vol]Ordered By: Gonzalo Sebastian on 12-06-2024 Potassium [Moles/Vol] 4.9 mmol/L 3.3-5.1 [facility] RBC Auto (Bld) [#/Vol]Ordere d By: Gonzalo Sebastian on 12-06-2024 RBC (Bld) [#/Vol] 4.62 10*6/uL 4.2-5.4 [facility] Serum creatinine measurement (mass/volume)Ordered By: Gonzalo Sebastian on 12-06-2024 Creatinine [Mass/Vol] 1.57 mg/dL High 0.70-1.20 [facility] Serum glucose measurement (m ass/volume)Ordered By: Gonzalo Sebastian on 12-06-2024 Glucose [Mass/Vol] 166 mg/dL High 70-99 [facility] Serum or plasma calcium esthela urement (mass/volume)Ordered By: Gonzalo Sebastian on 12-06-2024 Calcium [Mass/Vol] 9.3 mg/dL 7.6-11.0 [facility] Serum or plasma urea nitroge n measurement (mass/volume)Ordered By: Gonzalo Sebastian on 12-06-2024 Urea nitrogen [Mass/Vol] 44 mg/dL High 4-19 [facility] Sodium levelOrdered By: Matt Sebastian on 12-06-2024 Sodium [Moles/Vol] 134 mmol/L 133-145 [facility] White blood cell (WBC) count Ordered By: Gonzalo Sebastian on 12-06-2024 WBC (Bld) [#/Vol] 26.2 10*3/uL High 4.4-11.0 [facility] ALP [Catalytic activity/Vol] Ordered By: Aleta Aguayo on 12-05-2024 Serum or plasma alkaline phosphatase measurement 149 U/L High 35-104 [facility] ALT [Catalytic activity/Vol] Ordered By: Aleta Aguayo on 12-05-2024 Serum or plasma alanine aminotransferase (ALT) measurement 39 U/L High <35 [facility] Albumin [Mass/Vol]Ordered By : Aleta Aguayo on 12-05-2024 Serum or plasma albumin measurement (mass/volume) 3.8 g/dL 3.4-4.8 [facility] Albumin/Globulin [Mass ratio ]Ordered By: Aleta Aguayo on 12-05-2024 Serum or plasma albumin/globulin mass ratio 1.2 RATIO 0.9-2.4 [facility] Arterial patency Wrist arter y --pre arterial punctureOrdered By: Yrn Kahn on 12-05-2024 Sergei Test Positive [facility] Assessment of wrist artery patency prior to arterial puncture Positive [facility] Assessment of wrist artery p atency prior to arterial punctureOrdered By: Yrn Kahn on 12-05-2024 Arterial patency Wrist artery --pre arterial puncture Positive [facility] Base excess Calc (BldV) [Mol es/Vol]Ordered By: Yrn Kahn on 12-05-2024 Blood Gas Base Excess -1 mmol/L -2-2 [facility] Blood base excess determination -1 mmol/L -2-2 [facility] Bilirubin, totalOrdered By: Aleta Aguayo on 12-05-2024 Bilirubin [Mass/Vol] 0.18 mg/dL 0.00-1.30 [facility] Bilirubin, total 0.18 mg/dL 0.00-1.30 [facility] Blood Gases by CPSon 025 Base excess Calc (Bld) [Moles/Vol] -1 mmol/L Normal -2 to +2 [facility] Comment on above: Performed By: #### L 9000.0800 ####[facility] [address] [place], [address] Blood Gas Type ART Normal [facility] Comment on above: Performed By: #### L 9000.0800 ####[facility] [address] [place], [address] CO2 [Moles/Vol] 28 mmol/L Normal [facility] Comment on above: Performed By: #### L 9000.0800 ####[facility] [address] [place], [address] Comment 60 75 Normal [facility] Comment on above: Performed By: #### L 9000.0800 ####[facility] [address] [place], [address] HCO3 (Bld) [Moles/Vol] 26.4 mmol/L High 22-26 [facility] Comment on above: Performed By: #### L 9000.0800 ####[facility] [address] [place], [address] Mode Not entered Normal [facility] Comment on above: Performed By: #### L 9000.0800 ####[facility] [address] [place], [address] O2 Delivery Dev Not entered Normal [facility] Comment on above: Performed By: #### L 9000.0800 ####[facility] [address] [place], [address] pCO2 61.0 mmHg High 35-45 [facility] Comment on above: Performed By: #### L 9000.0800 ####[facility] [address] [place], [address] pH (Bld) 7.24 [pH] Low 7.35-7.45 [facility] Comment on above: Performed By: #### L 9000.0800 ####[facility] [address] [place], [address] PO2 68 mmHG Low 75-100 [facility] Comment on above: Performed By: #### L 9000.0800 ####[facility] [address] [place], [address] SITE R Radial Normal [facility] Comment on above: Performed By: #### L 9000.0800 ####[facility] [address] [place], [address] SO2 89 Low 95-99 [facility] Comment on above: Performed By: #### L 9000.0800 ####[facility] [address] [place], [address] SERGEI TEST Positive Normal [facility] Comment on above: Performed By: #### L 9000.0800 ####[facility] [address] [place], [address] Base excess Calc (Bld) [Moles/Vol] -3 mmol/L Low -2 to +2 [facility] Comment on above: Performed By: #### L 9000.0800 ####[facility] [address] [place], [address] Blood Gas Type ART Normal [facility] Comment on above: Performed By: #### L 9000.0800 ####[facility] [address] [place], [address] CO2 [Moles/Vol] 25 mmol/L Normal [facility] Comment on above: Performed By: #### L 9000.0800 ####[facility] [address] [place], [address] Comment 425 Normal [facility] Comment on above: Performed By: #### L 9000.0800 ####[facility] [address] [place], [address] FI02 45.0 Normal [facility] Comment on above: Performed By: #### L 9000.0800 ####[facility] [address] [place], [address] HCO3 (Bld) [Moles/Vol] 23.8 mmol/L Normal 22-26 [facility] Comment on above: Performed By: #### L 9000.0800 ####[facility] [address] [place], [address] Mode Not entered Normal [facility] Comment on above: Performed By: #### L 9000.0800 ####[facility] [address] [place], [address] O2 Delivery Dev BiPAP Normal [facility] Comment on above: Performed By: #### L 9000.0800 ####[facility] [address] [place], [address] pCO2 51.6 mmHg High 35-45 [facility] Comment on above: Performed By: #### L 9000.0800 ####[facility] [address] [place], [address] pH (Bld) 7.27 [pH] Low 7.35-7.45 [facility] Comment on above: Performed By: #### L 9000.0800 ####[facility] [address] [place], [address] PO2 57 mmHG Low 75-100 [facility] Comment on above: Performed By: #### L 9000.0800 ####[facility] [address] [place], [address] RR 14 Normal [facility] Comment on above: Performed By: #### L 9000.0800 ####[facility] [address] [place], [address] SITE R Radial Normal [facility] Comment on above: Performed By: #### L 9000.0800 ####[facility] [address] [place], [address] SO2 85 Low 95-99 [facility] Comment on above: Performed By: #### L 9000.0800 ####[facility] [address] [place], [address] Blood base excess determinat ionOrdered By: Yrn Kahn on 03-10-2025 Base excess Calc (BldV) [Moles/Vol] -1 mmol/L -2-2 [facility] Blood bicarbonate measuremen tOrdered By: Yrn Kahn on 12-05-2024 Blood Gas Bicarbonate Actual 26.4 mmol/L High [facility] HCO3 (Bld) [Moles/Vol] 26.4 mmol/L High [facility] Blood bicarbonate measurement 26.4 mmol/L High [facility] CBC W/Diff, Automatedon 11-26 Absolute Lymph 0.86 X10 3/uL Normal 0.83-4.51 [facility] Comment on above: Performed By: #### L 100.0100, L501.5200, L500.4050, L501.2300 ####[facility] [address] [place], [address] Absolute Neut 15.1 X10 3/uL High 2.0-7.7 [facility] Comment on above: Performed By: #### L 100.0100, L501.5200, L500.4050, L501.2300 ####[facility] [address] [place], [address] Basophils/100 WBC (Bld) 0.4 % Normal 0-1 [facility] Comment on above: Performed By: #### L 100.0100, L501.5200, L500.4050, L501.2300 ####[facility] [address] [place], [address] Eosinophils/100 WBC (Bld) 0.1 % Normal 0-5 [facility] Comment on above: Performed By: #### L 100.0100, L501.5200, L500.4050, L501.2300 ####[facility] [address] [place], [address] Erythrocyte distribution width (RBC) [Ratio] 14.9 % High 11.6-14.6 [facility] Comment on above: Performed By: #### L 100.0100, L501.5200, L500.4050, L501.2300 ####[facility] [address] [place], [address] Hematocrit (Bld) [Volume fraction] 39.2 % Normal 37-47 [facility] Comment on above: Performed By: #### L 100.0100, L501.5200, L500.4050, L501.2300 ####[facility] [address] [place], [address] Hemoglobin (Bld) [Mass/Vol] 12.2 g/dL Normal 12.0-15.0 [facility] Comment on above: Performed By: #### L 100.0100, L501.5200, L500.4050, L501.2300 ####[facility] [address] [place], [address] IG% 1.400 High 0.0-0.9 [facility] Comment on above: Result Comment: IG% - Immature Granulocytes (promyelocytes, myelocytes andmetamyelocytes) > 1% indicates that a LEFT SHIFT is Present. Performed By: #### L 100.0100, L501.5200, L500.4050, L501.2300 ####[facility] [address] [place], [address] Lymphocytes/100 WBC (Bld) 5.1 % Low 19-41 [facility] Comment on above: Performed By: #### L 100.0100, L501.5200, L500.4050, L501.2300 ####[facility] [address] [place], [address] MCH (RBC) [Entitic mass] 26.5 pg Low 27.0-32.0 [facility] Comment on above: Performed By: #### L 100.0100, L501.5200, L500.4050, L501.2300 ####[facility] [address] [place], [address] MCHC (RBC) [Mass/Vol] 31.1 g/dL Low 32-36 [facility] Comment on above: Performed By: #### L 100.0100, L501.5200, L500.4050, L501.2300 ####[facility] [address] [place], [address] MCV (RBC) [Entitic vol] 85.0 fL Normal 81-99 [facility] Comment on above: Performed By: #### L 100.0100, L501.5200, L500.4050, L501.2300 ####[facility] [address] [place], [address] Monocytes/100 WBC (Bld) 4.0 % Normal 0-10 [facility] Comment on above: Performed By: #### L 100.0100, L501.5200, L500.4050, L501.2300 ####[facility] [address] [place], [address] Neutrophils/100 WBC (Bld) 89.0 % High 47-70 [facility] Comment on above: Performed By: #### L 100.0100, L501.5200, L500.4050, L501.2300 ####[facility] [address] [place], [address] Nucleated RBC (Bld) [#/Vol] 0 10*3/uL Normal 0-5 [facility] Comment on above: Performed By: #### L 100.0100, L501.5200, L500.4050, L501.2300 ####[facility] [address] [place], [address] Platelet mean volume (Bld) [Entitic vol] 10.9 fL Normal 6.2-12.0 [facility] Comment on above: Performed By: #### L 100.0100, L501.5200, L500.4050, L501.2300 ####[facility] [address] [place], [address] Platelets (Bld) [#/Vol] 250 10*3/uL Normal 150-450 [facility] Comment on above: Performed By: #### L 100.0100, L501.5200, L500.4050, L501.2300 ####[facility] [address] [place], [address] RBC (Bld) [#/Vol] 4.61 10*6/uL Normal 4.2-5.4 [facility] Comment on above: Performed By: #### L 100.0100, L501.5200, L500.4050, L501.2300 ####[facility] [address] [place], [address] RDW SD 46.7 fl High 35.1-43.9 [facility] Comment on above: Performed By: #### L 100.0100, L501.5200, L500.4050, L501.2300 ####[facility] [address] [place], [address] WBC (Bld) [#/Vol] 16.9 10*3/uL High 4.4-11.0 [facility] Comment on above: Performed By: #### L 100.0100, L501.5200, L500.4050, L501.2300 ####[facility] [address] [place], [address] Comprehensive Metabolic Prof ilon 12-05-2024 Albumin [Mass/Vol] 3.8 g/dL Normal 3.4-4.8 [facility] Comment on above: Performed By: #### L 100.0100, L501.5200, L500.4050, L501.2300 ####[facility] [address] [place], [address] Albumin/Globulin [Mass ratio] 1.2 {ratio} Normal 0.9-2.4 [facility] Comment on above: Performed By: #### L 100.0100, L501.5200, L500.4050, L501.2300 ####[facility] [address] [place], [address] ALK PHOS 149 U/L High 35-104 [facility] Comment on above: Performed By: #### L 100.0100, L501.5200, L500.4050, L501.2300 ####[facility] [address] [place], [address] ALT [Catalytic activity/Vol] 39 U/L High <=34 [facility] Comment on above: Performed By: #### L 100.0100, L501.5200, L500.4050, L501.2300 ####[facility] [address] [place], [address] AST [Catalytic activity/Vol] 62 U/L High <=31 [facility] Comment on above: Performed By: #### L 100.0100, L501.5200, L500.4050, L501.2300 ####[facility] [address] [place], [address] Bilirubin [Mass/Vol] 0.18 mg/dL Normal 0.00-1.30 [facility] Comment on above: Performed By: #### L 100.0100, L501.5200, L500.4050, L501.2300 ####[facility] [address] [place], [address] BUN/CRE 14.0 RATIO Normal 10-20 [facility] Comment on above: Performed By: #### L 100.0100, L501.5200, L500.4050, L501.2300 ####[facility] [address] [place], [address] Calcium [Mass/Vol] 6.7 mg/dL Low 7.6-11.0 [facility] Comment on above: Performed By: #### L 100.0100, L501.5200, L500.4050, L501.2300 ####[facility] [address] [place], [address] Chloride [Moles/Vol] 97 mmol/L Low 98-108 [facility] Comment on above: Performed By: #### L 100.0100, L501.5200, L500.4050, L501.2300 ####[facility] [address] [place], [address] CO2 [Moles/Vol] 21.0 mmol/L Normal 21.0-32.0 [facility] Comment on above: Performed By: #### L 100.0100, L501.5200, L500.4050, L501.2300 ####[facility] [address] [place], [address] Creatinine [Mass/Vol] 1.37 mg/dL High 0.70-1.20 [facility] Comment on above: Performed By: #### L 100.0100, L501.5200, L500.4050, L501.2300 ####[facility] [address] [place], [address] ECRCL 35.67 ml/min Low 50-250 [facility] Comment on above: Performed By: #### L 100.0100, L501.5200, L500.4050, L501.2300 ####[facility] [address] [place], [address] GAP 16 High 5-15 [facility] Comment on above: Performed By: #### L 100.0100, L501.5200, L500.4050, L501.2300 ####[facility] [address] [place], [address] GFR/1.73 sq M.predicted among non-blacks MDRD (S/P/Bld) [Vol rate/Area] 44 mL/min/{1.73_m2} Low >60 [facility] Comment on above: Result Comment: mL/m in/1.73m2 CKD-EPI Creatinine Equation (2020) Performed By: #### L 100.0100, L501.5200, L500.4050, L501.2300 ####[facility] [address] [place], [address] Globulin (S) [Mass/Vol] 3.2 g/dL Normal 2.2-4.2 [facility] Comment on above: Performed By: #### L 100.0100, L501.5200, L500.4050, L501.2300 ####[facility] [address] [place], [address] Glucose [Mass/Vol] 144 mg/dL High 70-99 [facility] Comment on above: Performed By: #### L 100.0100, L501.5200, L500.4050, L501.2300 ####[facility] [address] [place], [address] Potassium [Moles/Vol] 4.8 mmol/L Normal 3.3-5.1 [facility] Comment on above: Performed By: #### L 100.0100, L501.5200, L500.4050, L501.2300 ####[facility] [address] [place], [address] Sodium [Moles/Vol] 134 mmol/L Normal 133-145 [facility] Comment on above: Performed By: #### L 100.0100, L501.5200, L500.4050, L501.2300 ####[facility] [address] [place], [address] T PROT 7.0 g/dL Normal 5.9-8.4 [facility] Comment on above: Performed By: #### L 100.0100, L501.5200, L500.4050, L501.2300 ####[facility] [address] [place], [address] Urea nitrogen [Mass/Vol] 19 mg/dL Normal 4-19 [facility] Comment on above: Performed By: #### L 100.0100, L501.5200, L500.4050, L501.2300 ####[facility] [address] [place], [address] Consultation - Intensiviston 12-05-2024 Consultation - Health Services Coordinator Normal [facility] Determination of fraction of inspired oxygenOrdered By: Yrn Kahn on 12-05-2024 Blood Gas Oxygen Percent 45.0 [facility] Determination of fraction of inspired oxygen 45.0 [facility] Echo Completeon 12-05-2024 Echo Complete Normal [facility] Electrocardiogram reportOrde red By: Jose Guadalupe Cotter on 12-05-2024 EKG study [facility] Cardiovascular Services [address] [place] [address] 12 Lead EKG 12/04/24 1614 MR#: [id number] Acct: [id number] Name: GRACIE BANUELOS Rep #:[id number] : 1965 59 From: Jose Guadalupe gomez [...] baseline artifact Confirmed by Jose Guadalupe Cotter ([id number]), multimedia editor LEONARD BAUTISTA ([id number]) on 12/05/2024 10:48:28 AM Referred By: Confirmed By: Jose Guadalupe Cotter 12/05/24 1048 Date _ Jose Guadalupe Cotter MD CC: Dr. Misbah Elkins MD; Dr. Franco Inman MD; Dr. Yrn Kahn, DO ~ Signed [facility] Other Phone: Laboratory - Chemistry and C hemistry - challengeOrdered By: Aleta Aguayo on 12-05-2024 AST [Catalytic activity/Vol] 62 U/L High <32 [facility] Magnesiumon 12-05-2024 Magnesium [Mass/Vol] 2.0 mg/dL Normal 1.5-2.2 [facility] Comment on above: Performed By: #### L 100.0100, L501.5200, L500.4050, L501.2300 ####[facility] [address] [facility] [place], [address] Magnesium (Unsp spec) [Mass/ Vol]Ordered By: Aleta Aguayo on 12-05-2024 Magnesium [Mass/Vol] 2.0 mg/dL 1.5-2.2 [facility] Magnesium measurement (mass/volume) 2.0 mg/dL 1.5-2.2 [facility] Magnesium measurement (mass/ volume)Ordered By: Aleta Aguayo on 12-05-2024 Magnesium (Unsp spec) [Mass/Vol] 2.0 mg/dL 1.5-2.2 [facility] Measurement, pHOrdered By: Mike Kahn on 12-05-2024 pH (Unsp spec) 7.24 [pH] Low 7.35-7.45 [facility] No Panel InformationOrdered By: Yrn Kahn on 12-05-2024 Blood Gas Clinical Comments 60 75 [facility] Blood Gas Sample Site R Radial [facility] Blood Gas Specimen Type ART [facility] Blood Gas Vent Mode Not entered [facility] Oxygen Delivery Device Not entered [facility] R Radial [facility] Not entered [facility] 60 75 [facility] Blood Gas Respiration Rate 14 [facility] 14 [facility] No Panel InformationOrdered By: Aleta Aguayo on 12-05-2024 62 U/L High <32 [facility] Oxygen saturation measuremen tOrdered By: Yrn Kahn on 12-05-2024 Blood Gas Oxygen Saturation 89 % Low 95-99 [facility] Oxygen saturation measurement 89 % Low 95-99 [facility] Partial pressure of carbon d ioxide measurementOrdered By: Yrn Kahn on 12-05-2024 Arterial Blood Partial Pressure CO2 61.0 mmHg High 35-45 [facility] Partial pressure of carbon dioxide measurement 61.0 mmHg High 35-45 [facility] Partial pressure of oxygen m easurementOrdered By: Yrn Kahn on 12-05-2024 Arterial Blood Partial Pressure O2 68 mmHG Low 75-100 [facility] Partial pressure of oxygen measurement 68 mmHG Low 75-100 [facility] Phosphoruson 12-05-2024 Phosphate [Mass/Vol] 6.2 mg/dL High 2.7-4.5 [facility] Comment on above: Performed By: #### L 100.0100, L501.5200, L500.4050, L501.2300 ####[facility] [address] [place], [place], [address] RESPIRATORY PANEL MOLECULARo n 12-05-2024 RP PANEL Normal [facility] Comment on above: Performed By: #### M 100.638 ####[facility] [address] [facility] [place], [address] Serum globulin measurementOr dered By: Aleta Aguayo on 12-05-2024 Globulin (S) [Mass/Vol] 3.2 g/dL 2.2-4.2 [facility] Serum globulin measurement 3.2 g/dL 2.2-4.2 [facility] Serum or plasma alanine pimentel otransferase (ALT) measurementOrdered By: Aleta Aguayo on 12-05-2024 ALT [Catalytic activity/Vol] 39 U/L High <35 [facility] Serum or plasma albumin esthela urement (mass/volume)Ordered By: Aleta Aguayo on 12-05-2024 Albumin [Mass/Vol] 3.8 g/dL 3.4-4.8 [facility] Serum or plasma albumin/glob ulin mass ratioOrdered By: Aleta Aguayo on 12-05-2024 Albumin/Globulin [Mass ratio] 1.2 {ratio} 0.9-2.4 [facility] Serum or plasma alkaline jose sphatase measurementOrdered By: Aleta Aguayo on 12-05-2024 ALP [Catalytic activity/Vol] 149 U/L High 35-104 [facility] Serum phosphorus measurement Ordered By: Aleta Aguayo on 12-05-2024 Phosphorus Level 6.2 mg/dL High 2.7-4.5 [facility] Serum phosphorus measurement 6.2 mg/dL High 2.7-4.5 [facility] Total carbon dioxide measure mentOrdered By: Yrn Kahn on 12-05-2024 Blood Gas Total CO2 28 mmol/L [facility] CO2 [Moles/Vol] 28 mmol/L [facility] Total carbon dioxide measurement 28 mmol/L [facility] Total proteinOrdered By: Lilibeth Aguayo on 12-05-2024 Protein [Mass/Vol] 7.0 g/dL 5.9-8.4 [facility] Total protein 7.0 g/dL 5.9-8.4 [facility] pH (Unsp spec)Ordered By: Cherelle Kahn on 12-05-2024 Blood Gas pH 7.24 Low 7.35-7.45 [facility] Measurement, pH 7.24 Low 7.35-7.45 [facility] 12 Lead EKGon 12-04-2024 12 Lead EKG Normal [facility] Absolute neutrophil countOrd ered By: Franco Inman on 12-04-2024 Neutrophils (Bld) [#/Vol] 11.4 10*3/uL High 2.0-7.7 [facility] Anion gap in Serum or Plasma Ordered By: Franco Inman on 12-04-2024 Anion gap [Moles/Vol] 13 mmol/L 5-15 [facility] Assessment of wrist artery p atency prior to arterial punctureOrdered By: Aleta Aguayo on 12-04-2024 Sergei Test Positive Normal [facility] Comment on above: Performed By: #### L 9000.0800 ####[facility] [address] [place], [address] BUN/creatinine ratioOrdered By: Franco Inman on 12-04-2024 Urea nitrogen/Creatinine [Mass ratio] 10.4 mg/mg - [facility] Base excess Calc (BldV) [Mol es/Vol]Ordered By: Aleta Aguayo on 12-04-2024 Blood Gas Base Excess 1 mmol/L -2-2 [facility] Basic Metabolic Profile (BMP )on 12-04-2024 BUN/CRE 10.4 RATIO Normal 07-17 [facility] Comment on above: Performed By: #### L 100.0100, L500.2500 ####[facility] [address] [place], [address] Calcium [Mass/Vol] 9.2 mg/dL Normal 7.6-11.0 [facility] Comment on above: Performed By: #### L 100.0100, L500.2500 ####[facility] [address] [place], [address] Chloride [Moles/Vol] 99 mmol/L Normal 98-108 [facility] Comment on above: Performed By: #### L 100.0100, L500.2500 ####[facility] [address] [place], [address] CO2 [Moles/Vol] 24.6 mmol/L Normal 21.0-32.0 [facility] Comment on above: Performed By: #### L 100.0100, L500.2500 ####[facility] [address] [place], [address] Creatinine [Mass/Vol] 0.92 mg/dL Normal 0.70-1.20 [facility] Comment on above: Performed By: #### L 100.0100, L500.2500 ####[facility] [address] [place], [address] ECRCL 53.12 ml/min Normal 50-250 [facility] Comment on above: Performed By: #### L 100.0100, L500.2500 ####[facility] [address] [place], [address] GAP 13 Normal 5-15 [facility] Comment on above: Performed By: #### L 100.0100, L500.2500 ####[facility] [address] [place], [address] GFR/1.73 sq M.predicted among non-blacks MDRD (S/P/Bld) [Vol rate/Area] 71 mL/min/{1.73_m2} Normal >60 [facility] Comment on above: Result Comment: mL/m in/1.73m2 CKD-EPI Creatinine Equation (2020) Performed By: #### L 100.0100, L500.2500 ####[facility] [address] [place], [address] Glucose [Mass/Vol] 118 mg/dL High 70-99 [facility] Comment on above: Performed By: #### L 100.0100, L500.2500 ####[facility] [address] [place], [address] Potassium [Moles/Vol] 4.2 mmol/L Normal 3.3-5.1 [facility] Comment on above: Performed By: #### L 100.0100, L500.2500 ####[facility] [address] [place], [address] Sodium [Moles/Vol] 137 mmol/L Normal 133-145 [facility] Comment on above: Performed By: #### L 100.0100, L500.2500 ####[facility] [address] [place], [address] Urea nitrogen [Mass/Vol] 10 mg/dL Normal 4-19 [facility] Comment on above: Performed By: #### L 100.0100, L500.2500 ####[facility] [address] [place], [address] Basophil percentageOrdered B y: Franco Inman on 12-04-2024 Basophils/100 WBC (Bld) 0.9 % 0-1 [facility] Blood Gases by CPSon 025 Base excess Calc (Bld) [Moles/Vol] 1 mmol/L Normal -2 to +2 [facility] Comment on above: Performed By: #### L 9000.0800 ####[facility] [address] [place], [address] Blood Gas Type ART Normal [facility] Comment on above: Performed By: #### L 9000.0800 ####[facility] [address] [place], [address] CO2 [Moles/Vol] 30 mmol/L Normal [facility] Comment on above: Performed By: #### L 9000.0800 ####[facility] [address] [place], [address] FI02 5.0 Normal [facility] Comment on above: Performed By: #### L 9000.0800 ####[facility] [address] [place], [address] HCO3 (Bld) [Moles/Vol] 28.1 mmol/L High 22-26 [facility] Comment on above: Performed By: #### L 9000.0800 ####[facility] [address] [place], [address] Mode Not entered Normal [facility] Comment on above: Performed By: #### L 9000.0800 ####[facility] [address] [place], [address] O2 Delivery Dev Cannula Normal [facility] Comment on above: Performed By: #### L 9000.0800 ####[facility] [address] [place], [address] pCO2 65.4 mmHg High 35-45 [facility] Comment on above: Performed By: #### L 9000.0800 ####[facility] [address] [place], [address] pH (Bld) 7.24 [pH] Low 7.35-7.45 [facility] Comment on above: Performed By: #### L 9000.0800 ####[facility] [address] [place], [address] PO2 68 mmHG Low 75-100 [facility] Comment on above: Performed By: #### L 9000.0800 ####[facility] [address] [place], [address] SITE R Radial Normal [facility] Comment on above: Performed By: #### L 9000.0800 ####[facility] [address] [place], [address] SO2 89 Low 95-99 [facility] Comment on above: Performed By: #### L 9000.0800 ####[facility] [address] [place], [address] Blood bicarbonate measuremen tOrdered By: Aleta Aguayo on 12-04-2024 Blood Gas Bicarbonate Actual 28.1 mmol/L High 22-26 [facility] CBC W/Diff, Automatedon Absolute Lymph 0.96 X10 3/uL Normal 0.83-4.51 [facility] Comment on above: Performed By: #### L 100.0100, L500.2500 ####[facility] [address] [place], [address] Absolute Neut 11.4 X10 3/uL High 2.0-7.7 [facility] Comment on above: Performed By: #### L 100.0100, L500.2500 ####[facility] [address] [place], [address] Basophils/100 WBC (Bld) 0.9 % Normal 0-1 [facility] Comment on above: Performed By: #### L 100.0100, L500.2500 ####[facility] [address] [place], [address] Eosinophils/100 WBC (Bld) 0.6 % Normal 0-5 [facility] Comment on above: Performed By: #### L 100.0100, L500.2500 ####[facility] [address] [place], [address] Erythrocyte distribution width (RBC) [Ratio] 14.7 % High 11.6-14.6 [facility] Comment on above: Performed By: #### L 100.0100, L500.2500 ####[facility] [address] [place], [address] Hematocrit (Bld) [Volume fraction] 43.7 % Normal 37-47 [facility] Comment on above: Performed By: #### L 100.0100, L500.2500 ####[facility] [address] [place], [address] Hemoglobin (Bld) [Mass/Vol] 14.1 g/dL Normal 12.0-15.0 [facility] Comment on above: Performed By: #### L 100.0100, L500.2500 ####[facility] [address] [place], [address] IG% 0.800 Normal 0.0-0.9 [facility] Comment on above: Result Comment: IG% - Immature Granulocytes (promyelocytes, myelocytes andmetamyelocytes) > 1% indicates that a LEFT SHIFT is Present. Performed By: #### L 100.0100, L500.2500 ####[facility] [address] [place], [address] Lymphocytes/100 WBC (Bld) 6.8 % Low 19-41 [facility] Comment on above: Performed By: #### L 100.0100, L500.2500 ####[facility] [address] [place], [address] MCH (RBC) [Entitic mass] 26.9 pg Low 27.0-32.0 [facility] Comment on above: Performed By: #### L 100.0100, L500.2500 ####[facility] [address] [place], [address] MCHC (RBC) [Mass/Vol] 32.3 g/dL Normal 32-36 [facility] Comment on above: Performed By: #### L 100.0100, L500.2500 ####[facility] [address] [place], [address] MCV (RBC) [Entitic vol] 83.4 fL Normal 81-99 [facility] Comment on above: Performed By: #### L 100.0100, L500.2500 ####[facility] [address] [place], [address] Monocytes/100 WBC (Bld) 10.4 % High 0-10 [facility] Comment on above: Performed By: #### L 100.0100, L500.2500 ####[facility] [address] [place], [address] Neutrophils/100 WBC (Bld) 80.5 % High 47-70 [facility] Comment on above: Performed By: #### L 100.0100, L500.2500 ####[facility] [address] [place], [address] Nucleated RBC (Bld) [#/Vol] 0 10*3/uL Normal 0-5 [facility] Comment on above: Performed By: #### L 100.0100, L500.2500 ####[facility] [address] [place], [address] Platelet mean volume (Bld) [Entitic vol] 10.2 fL Normal 6.2-12.0 [facility] Comment on above: Performed By: #### L 100.0100, L500.2500 ####[facility] [address] [place], [address] Platelets (Bld) [#/Vol] 271 10*3/uL Normal 150-450 [facility] Comment on above: Performed By: #### L 100.0100, L500.2500 ####[facility] [address] [place], [address] RBC (Bld) [#/Vol] 5.24 10*6/uL Normal 4.2-5.4 [facility] Comment on above: Performed By: #### L 100.0100, L500.2500 ####[facility] [address] [place], [address] RDW SD 44.6 fl High 35.1-43.9 [facility] Comment on above: Performed By: #### L 100.0100, L500.2500 ####[facility] [address] [place], [address] WBC (Bld) [#/Vol] 14.1 10*3/uL High 4.4-11.0 [facility] Comment on above: Performed By: #### L 100.0100, L500.2500 ####[facility] [address] [place], [address] CTA Chest W/WO Contraston CTA Chest W/WO Contrast Normal [facility] Carbon dioxide, total [Moles /volume] in Central venous bloodOrdered By: Franco Inman on 12-04-2024 CO2 [Moles/Vol] 24.6 mmol/L 21.0-32.0 [facility] Chest PA and Lateralon 12-04 Chest PA and Lateral Normal [facility] Chloride assayOrdered By: Leo Inman on 12-04-2024 Chloride [Moles/Vol] 99 mmol/L 98-108 [facility] Determination of fraction of inspired oxygenOrdered By: Aleta Aguayo on 12-04-2024 Blood Gas Oxygen Percent 5.0 [facility] Emergency Department Summary on 12-04-2024 Emergency Department Summary Normal [facility] Eosinophil percentageOrdered By: Franco Inman on 12-04-2024 Eosinophils/100 WBC (Bld) 0.6 % 0-5 [facility] Erythrocyte distribution wid th ratioOrdered By: Franco Inman on 12-04-2024 Erythrocyte distribution width (RBC) [Ratio] 14.7 % High 11.6-14.6 [facility] Erythrocyte distribution wid th standard deviationOrdered By: Franco Inman on 12-04-2024 Erythrocyte distribution width (RBC) [Entitic vol] 44.6 fL High 35.1-43.9 [facility] Estimation of creatinine binu aranceOrdered By: Franco Inman on 12-04-2024 Estimated Creatinine Clearance Calc 53.12 ml/min 50-250 [facility] GFR/1.73 sq M.predicted gregory g non-blacks MDRD (S/P/Bld) [Vol rate/Area]Ordered By: Franco Inman on 12-04-2024 Estimated GFR (MDRD) Non-Af Amer 71 >60 [facility] Comment on above: mL/min/1.73m2 CKD-EP I Creatinine Equation (2020) H AND P Exam - [facility] 12-04-2024 H&P Exam - Hospitalist Normal [facility] Hematocrit Auto (Bld) [Volum e fraction]Ordered By: Franco Inman on 12-04-2024 Hematocrit (Bld) [Volume fraction] 43.7 % 37-47 [facility] Hemoglobin measurementOrdere d By: Franco Inman on 12-04-2024 Hemoglobin (Bld) [Mass/Vol] 14.1 g/dL 12.0-15.0 [facility] Immature granulocytes/100 WB C Auto (Bld)Ordered By: Franco Inman on 12-04-2024 Immature granulocytes/100 WBC (Bld) 0.800 % 0.0-0.9 [facility] Comment on above: IG% - Immature Granu locytes (promyelocytes, myelocytes and metamyelocytes) > 1% indicates that a LEFT SHIFT is Present. Influenza virus A and B and SARS-CoV-2 (COVID-19) and Respiratory syncytial virus RNAOrdered By: Franco Inman on 12-04-2024 SARS-CoV-2 (COVID-19) RNA KANDY+probe Ql (Unsp spec) [facility] Lipaseon 12-04-2024 Lipase [Catalytic activity/Vol] 25 U/L Normal 13-75 [facility] Comment on above: Result Comment: Jenny capellan note:LIPASE revised reference range effective 23.New Lipase methodology. Expected to produce lower valuesthan the previous assay method.NEW Reference Range: 13 - 75 U/L Performed By: #### L 501.6160 ####[facility] [address] [place], [place], [address] Lipase measurementOrdered By : Franco Inman on 12-04-2024 Lipase [Catalytic activity/Vol] 25 U/L 13-75 [facility] Comment on above: Please note:LIPASE r evised reference range effective 23. New Lipase methodology. Expected to produce lower values than the previous assay method. NEW Reference Range: 13 - 75 U/L Lipase measurement 25 U/L 13-75 [facility] Lymphocytes Auto (Unsp spec) [#/Vol]Ordered By: Franco Inman on 12-04-2024 Lymphocytes (Bld) [#/Vol] 0.96 10*3/uL 0.83-4.51 [facility] Lymphocytes/100 WBC Auto (Un sp spec)Ordered By: Franco Inman on 12-04-2024 Lymphocytes/100 WBC (Bld) 6.8 % Low 19-41 [facility] M100.678on 12-04-2024 M100.678 Pending SARS-CoV-2 (COVID 19) Negative INFLUENZA A Negative INFLUENZA B Negative RSV PCR Negative Normal [facility] Comment on above: Performed By: #### M 100.678 ####[facility] [address] [place], [address] MCV (mean corpuscular volume ) determinationOrdered By: Franco Inman on 12-04-2024 MCV (RBC) [Entitic vol] 83.4 fL 81-99 [facility] Mean corpuscular hemoglobin (MCH) determinationOrdered By: Franco Inman on 12-04-2024 MCH (RBC) [Entitic mass] 26.9 pg Low 27.0-32.0 [facility] Mean corpuscular hemoglobin concentration (MCHC) determinationOrdered By: Franco Inman on 12-04-2024 MCHC (RBC) [Mass/Vol] 32.3 g/dL 32-36 [facility] Mean platelet volume determi nationOrdered By: Franco Inman on 12-04-2024 Platelet mean volume (Bld) [Entitic vol] 10.2 fL 6.2-12.0 [facility] Monocyte percentageOrdered B y: Franco Inman on 12-04-2024 Monocytes/100 WBC (Bld) 10.4 % High 0-10 [facility] Neutrophil percentageOrdered By: Franco Inman on 12-04-2024 Neutrophils/100 WBC (Bld) 80.5 % High 47-70 [facility] No Panel InformationOrdered By: Aleta Aguayo on 12-04-2024 Blood Gas Sample Site R Radial [facility] Blood Gas Specimen Type ART [facility] Blood Gas Vent Mode Not entered [facility] Oxygen Delivery Device Cannula [facility] Nucleated red blood cell per centageOrdered By: Franco Inman on 12-04-2024 Nucleated RBC/100 WBC (Bld) [Ratio] 0 % 0-5 [facility] Oxygen saturation measuremen tOrdered By: Aleta Aguayo on 12-04-2024 Blood Gas Oxygen Saturation 89 % Low 95-99 [facility] Partial pressure of carbon d ioxide measurementOrdered By: Aleta Aguayo on 12-04-2024 Arterial Blood Partial Pressure CO2 65.4 mmHg High 35-45 [facility] Partial pressure of oxygen m easurementOrdered By: Aleta Aguayo on 12-04-2024 Arterial Blood Partial Pressure O2 68 mmHG Low 75-100 [facility] Platelet countOrdered By: Leo Inman on 12-04-2024 Platelets (Bld) [#/Vol] 271 10*3/uL 150-450 [facility] Potassium (Unsp spec) [Mass/ Vol]Ordered By: Franco Inman on 12-04-2024 Potassium [Moles/Vol] 4.2 mmol/L 3.3-5.1 [facility] RBC Auto (Bld) [#/Vol]Ordere d By: Franco Inman on 12-04-2024 RBC (Bld) [#/Vol] 5.24 10*6/uL 4.2-5.4 [facility] Respiratory pathogens DNA an d RNA panel KANDY+probe (Resp)Ordered By: Aleta Aguayo on 12-04-2024 Respiratory Panel (PCR) [facility] Respiratory pathogens detect ion panel by molecular detection methodOrdered By: Aleta Aguayo on 12-04-2024 Respiratory pathogens DNA and RNA panel KANDY+probe (Resp) [facility] Serum creatinine measurement (mass/volume)Ordered By: Franco Inman on 12-04-2024 Creatinine [Mass/Vol] 0.92 mg/dL 0.70-1.20 [facility] Serum glucose measurement (m ass/volume)Ordered By: Franco Inman on 12-04-2024 Glucose [Mass/Vol] 118 mg/dL High 70-99 [facility] Serum or plasma calcium esthela urement (mass/volume)Ordered By: Franco Inman on 12-04-2024 Calcium [Mass/Vol] 9.2 mg/dL 7.6-11.0 [facility] Serum or plasma urea nitroge n measurement (mass/volume)Ordered By: Franco Inman on 12-04-2024 Urea nitrogen [Mass/Vol] 10 mg/dL 4-19 [facility] Sodium levelOrdered By: Franco Inman on 12-04-2024 Sodium [Moles/Vol] 137 mmol/L 133-145 [facility] Total carbon dioxide measure mentOrdered By: Aleta Aguayo on 12-04-2024 Blood Gas Total CO2 30 mmol/L [facility] White blood cell (WBC) count Ordered By: Franco Inman on 12-04-2024 WBC (Bld) [#/Vol] 14.1 10*3/uL High 4.4-11.0 [facility] pH (Unsp spec)Ordered By: Malinda Aguayo on 12-04-2024 Blood Gas pH 7.24 Low 7.35-7.45 [facility] ANES POSTPROC EVALon 025 ANES POSTPROC EVAL HNO ID: [id number] Author: EDUARD GALEANO MD Service: ? Author [...] Scheduled Providers: Jane Farrell MD; Adrian Laird APRN.OBSERVATORY DIRECTOR; Eduard Galeano MD Responsible Provider: Eduard Galeano [...] December 01, 2024 TIME: 11:19 AM CSN: [id number] Normal [facility] ANES PRE-OPon 12-01-2024 ANES PRE-OP HNO ID: [id number] Author: EDUARD GALEANO MD Service: ? Author Type: Anesthesiologist Type: Anesthesia Preprocedure Evaluation Filed: 12/01/2024 10:04 Note Text: ANESTHESIOLOGY DAY OF SURGERY NOTE : 1965 Procedure Information Anesthesia Start Date/Time: 12/01/24 1002 Scheduled providers: Jane Farrell MD; Adrian Laird APRN.OBSERVATORY DIRECTOR; Eduard Galeano MD Procedure: EGD - THERAPEUTIC, [...] capsule by mouth at bedtime as needed. idxjra-rmfbksxk-mlqycqp (CREON 24) 24,000-76,000 -120,000 unit delayed release [...] This conta (more content not included)... Normal [facility] 12-01-2024 CNPN Telephone (GASTPR) -------- GRACIE BANUELOS ([id number]) 1965 F Date Time Provider Department 12/01/24 JANE FARRELL [facility] During your visit today, we recorded the following information about you: Jane Farrell MD 12/01/2024 12:00 PM Signed Orders Allergies As of Date: 12/01/2024 Noted Allergy Reaction BACTRIM (SULFAMETHOXAZOLE-TRIMET H*11/28/2022 4 - Hives HYDROCODONE 08/02/2020 9 - Itching PENICILLINS 07/07/2006 14 - Other: See Comments Comments: hives VALIUM (DIAZEPAM) 11/02/2013 14 - Other: See Comments Comments: cross reaction with alcohol addiction Date Reviewed: 12/01/2024 Reviewed by: Reshma Telles RN - Fully Assessed Reason for Visit: Endoscopy Call [1773] Primary Visit Diagnosis:Other chronic pancreatitis (HCC) [K86.1] Order(s):ERCP [GI18] Order #: [id number] FUTURE Prescriptions as of 12/01/2024 - pantoprazole [...] by mouth at bedtime as needed. - zjhrbu-gsxqhpwt-qsqmhzx (CREON 24) 24,000-76,000 -120,000 unit delayed release [...] stress female [N39.3] 11/24/2014 HPV test positive [UXY2707] 11/24/2014 Alcohol dependence in remission (HCC) [F10.21] [...] Status:Closed by JANE FARRELL on 12/01/24 Normal [facility] EGD Study observation Narrat iveon 12-01-2024 [facility] Radiology Study observation (narrative) [facility] NURSING PROGon 12-01-2024 NURSING PROG HNO ID: [id number] Author: RESHMA TELLES RN Service: Nursing Author [...] Electronically Signed By: Reshma Telles RN Normal [facility] NURSING PROG HNO ID: [id number] Author: KATHIE DORANTES RN Service: ? Author [...] Kathie Dorantes RN In Department: GASTROENTEROLOGY Normal [facility] VINGRACIE ([id number]) 1965 F Date Time Provider Department 11/25/24 RAISA JIMENEZ GAPRA3 During your visit today, we recorded the following information about you: Raisa Jimenez RN 11/25/2024 12:19 PM Signed Spoke with pt and went over prep instructions, answering all her questions until pt was comfortable and verbalized understanding Raisa Jimenez MA Allergies As of Date: 11/25/2024 Noted Allergy Reaction BACTRIM (SULFAMETHOXAZOLE-TRIMET H*11/28/2022 4 - Hives HYDROCODONE 08/02/2020 9 - [...] by mouth at bedtime as needed. - zephjo-yvtzmjmy-vsmmtfe (CREON 24) 24,000-76,000 -120,000 unit delayed release [...] stress female [N39.3] 11/24/2014 HPV test positive [[id number]] 11/24/2014 Alcohol dependence in remission (HCC) [F10.21] [...] Encounter Status:Closed by [facility] GRACIE BANUELOS ([id number]) 1965 F Date Time Provider Department 11/25/24 JANE FARRELL [facility] During your visit today, we recorded the [...] you do prescribe or if you won't [phone] (does not use MyChart) Juan Abbott LPN 11/25/2024 3:58 PM Signed Spoke with Gracie, discussed that [facility] staff will be talking to patient in preoperative area and will give any medications IV to help with anxiety, patient understands and has no other questions. Juan Bloom LPN Allergies As of Date: 11/25/2024 Noted Allergy Reaction BACTRIM (SULFAMETHOXAZOLE-TRIMET H*11/28/2022 4 - Hives HYDROCODONE 08/02/2020 9 - [...] by mouth at bedtime as needed. - manofq-xevgvjua-zsuvlcz (CREON 24) 24,000-76,000 -120,000 unit delayed release [...] stress female [N39.3] 11/24/2014 HPV test positive [ONM6652] 11/24/2014 Alcohol dependence in remission (HCC) [F10.21] 07/10/2015 11/02/2018 Pulmonary emphysema (HCC) [J43.9] 11/27/2015 Irritable bowel syndrome with both constipation*08/27/2017 Alcohol use disorder, moderate, dependence (HCC*08/27/2017 DDD (degenerative disc disease), cervical [M50.*09/03/2018 Severe protein-calorie malnutrition (HCC) [E43] 01/07/2019 12/26/2022 Chronic recurrent pancreatitis (HCC) [K86.1] 01/07/2019 Reactive depression [F32.9] 04/28/2019 Alcohol-induced chronic pancreatitis (HCC) [K86*07/26/2019 Mo (more content not included)... Normal [facility] NURSING PROGon 11-24-2024 NURSING PROG HNO ID: [id number] Author: CARROLL LEBLANC RN Service: ? Author Type: Registered Nurse Type: Nursing Progress Note Filed: 11/24/2024 16:10 Note Text: Attempted to reach the patient at the contact number that they provided [phone] (home) . Unable to speak with patient so without identifying the patient the following information was left on their voice mail: Date of procedure, location and report time Prep instructions A message was left informing the patient/patient event representative they must have a responsible adult [...] Number to call with questions or concerns [phone] Number to call to cancel their procedure [phone] Carroll Leblanc RN [facility] Matte[facility]20[facility] GRACIE BANUELOS ([id number]) 1965 F Date Time Provider Department 11/08/24 MISBAH ELKINS During your visit today, we [...] please ask her to use it. Regards, Candie Byers MD, MA 11/09/2024 11:41 AM Signed Patient notified and verbalized understanding. Candie Murdock MA Allergies As of Date: 11/08/2024 Noted Allergy Reaction BACTRIM (SULFAMETHOXAZOLE-TRIMET H*11/28/2022 4 - Hives HYDROCODONE 08/02/2020 9 - [...] by mouth at bedtime as needed. - nvthqt-zukmwrtw-meqznwo (CREON 24) 24,000-76,000 -120,000 unit delayed release [...] stress female [N39.3] 11/24/2014 HPV test positive [[id number]] 11/24/2014 Alcohol dependence in remission (HCC) [F10.21] 07/10/2015 11/02/2018 Pulmonary emphysema (HCC) [J43.9] 11/27/2015 Irritable bowel syndrome with both constipation*08/27/2017 Alcohol use disorder, moderate, dependence (HCC*08/27/2017 DDD (degenerative disc disease), cervical [M50.*09/03/2018 Severe protein-calorie malnutrition (HCC) [E43] 01/07/2019 12/26/2022 Chronic recurrent pancreatitis (HCC) [K86.1] 01/07/2019 Reactive depression [F32.9] 04/28/2019 Alcohol-induced chronic pancreatitis (HCC) [K86*07/26 (more content not included)... Normal [facility] CNOVon 11-07-2024 CNOV Office Visit (INTMWS ) -------- GRACIE BANUELOS ([id number]) 1965 F Date Time Provider Department 11/07/24 2:00 PM MISBAH ELKINS During your visit today, we [...] anxiety and depression. She was admitted to [facility] from 01/01 to 01/04 for [...] , surgical and social history. ALLERGIES Bactrim [Sulfamethoxazole-Trimet hoprim], Hydrocodone, Penicillins, and Valium [Diazepam] MEDICATIONS Cholecalciferol, [...] as needed (more content not included)... Normal [facility] XR CHEST 2V FRONTAL/LATon XR CHEST 2V FRONTAL/LAT * * *Final Report* * * DATE [...] tissues: Unremarkable. IMPRESSION: No acute radiographic abnormality. Charge Entry: BABATUNDE Transcribe Date/Time: Nov 07 2024 4:49P Dictated by : EDUARDO MATTHEWS MD This examination was interpreted and the report reviewed and electronically signed by: EDUARDO MATTHEWS MD on Nov 07 2024 4:49PM EST [id number] Normal [facility] XR Chest PA and Lateralon IMPRESSION: No acute radiographic abnormality. Charge Entry: [facility] Transcribe Date/Time: Nov 07 2024 4:49P Dictated [...] soft tissues: Unremarkable. DIVISION OF RADIOLOGY [facility] * * *Final [...] Unremarkable. IMPRESSION IMPRESSION: No acute radiographic abnormality. Charge Entry: PSCB Transcribe Date/Time: Nov 07 2024 4:49P Dictated by : EDUARDO MATTHEWS MD This examination was interpreted and the report reviewed and electronically signed by: EDUARDO MATTHEWS MD on Nov 07 2024 4:49PM [facility] Radiology Study observation (narrative) [facility] XR Chest PA and LateralOrder ed By: Cc Provider on 11-07-2024 [facility] Matteo 08-31-2024 CNPN Telephone (FAMPWS) -------- GRACIE BANUELOS ([id number]) 1965 F Date Time Provider Department 08/31/24 SOILA EASTON During your visit today, we recorded the following information about you: Soila Easton APRN.CNP 08/31/2024 7:33 AM Signed Signs of chronic pancreatitis. When was the last time she saw GI? If over a year I will place a consult order. Who has she seen in the past? Thank you Soila Easton APRN.IGOR Chavez EileenCHERELLE doshi 08/31/2024 10:19 AM Signed Left message for [...] am reconsulting her. Thank you Soila Easton APRN.LEGAL EXECUTIVE ASSISTANT Allergies As of Date: 08/31/2024 Noted Allergy Reaction BACTRIM (SULFAMETHOXAZOLE-TRIMET H*11/28/2022 4 - Hives HYDROCODONE 08/02/2020 9 - Itching PENICILLINS 07/07/2006 14 - Other: See Comments Comments: hives VALIUM (DIAZEPAM) 11/02/2013 14 - Other: See Comments Comments: cross reaction with alcohol addiction Date Reviewed: 08/22/2024 Reviewed by: Nadeen Bobby, (R) - Fully Assessed Reason for Visit: Results [95] Primary Visit Diagnosis:Chronic recurrent pancreatitis (HCC) [K86.1] Other Visit Diagnosis:Alcohol-induce d chronic pancreatitis (HCC) [K86.0] Order(s):CONSULT TO GASTROENTEROLOGY [9010] Order #: [id number]: 1 FUTURE Prescriptions as of 02/06/2025 - [...] stress female [N39.3] 11/24/2014 HPV test positive [RAL7814] 11/24/2014 Alcohol dependence in remission (HCC) [F10.21] 07/10/2015 11/02/2018 Pulmonary emphysema (HCC) [J43.9] 11/27/2015 Irritable bowel syndrome with both constipation*08/27/2017 Alcohol use di (more content not included)... Normal [facility] CT ABD/PEL W IVCONon 26-[address] ABD/PEL W IVCON * * *Final Report* * * DATE OF EXAM: Aug 23 2024 9:53AM [facility] 0530 - CT ABD/PEL W IVCON [...] adnexal mass. BOWEL: No evidence of obstruction. PERITONEAL/EXTRAPERITONE AL SPACE: No free air or free fluid. [...] finding of the abdomen or pelvis seen. Charge Entry: [facility] Transcribe Date/Time: Aug 25 2024 10:38P Dictated by : YIN HERNANDEZ MD This examination was interpreted and the report reviewed and electronically signed by: YIN HERNANDEZ MD on Aug 25 2024 10:47PM EST [id number] [facility]) [facility] GRACIE BANUELOS ([id number]) 1965 F [facility] Date Time Provider Department 08/19/24 MISBAH ELKINS INTMWS During your visit today, we recorded the following information about you: Maribeth Owen LPN 08/19/2024 11:37 AM Signed Pt called in to reports she is still getting the Lexapro in her packs. I called [facility] and they will pick her packs up today and remove the Lexapro and then deliver back to pt today. Pt notified. Maribeth Nano Owen LPN Allergies As of Date: 08/19/2024 Noted Allergy Reaction BACTRIM (SULFAMETHOXAZOLE-TRIMET H*11/28/2022 4 - Hives HYDROCODONE 08/02/2020 9 - [...] 1 tablet by mouth once daily. - urktxe-pifhbxha-zzwwlnw (CREON 24) 24,000-76,000 -120,000 unit delayed release [...] stress female [N39.3] 11/24/2014 HPV test positive [[id number]] 11/24/2014 Alcohol dependence in remission (HCC) [F10.21] [...] Encounter Status:Closed by MARIBETH OWEN on 08/19/24 [facility] Mikel 08-15-2024 CNOV Office Visit (INTMWS ) -------- GRACIE BANUELOS ([id number]) 1965 F [place] Date Time Provider Department 08/15/24 11:40 AM SOILA EASTON INTMRAQUEL During your visit today, we recorded the following information about you: Pulse Respiration Blood pressure Weight 80/minute 16/minute 112/78 64.4 kg Soila Easton APRN.CNP 08/15/2024 12:40 PM Signed CC: Patient presents with: Recheck: Follow up SOB HPI Gracie Chase Banuelos is a 59 year old female [...] shortness of breath all improving. [facility] with next routine exam in September. [...] Paul Perez. COLONOSCOPY 01/23/2015 2-Tubular adenomas. Dr. Vícotr Lopez. COLONOSCOPY 07/29/2017 normal COLONOSCOPY - DIAGNOSTIC 01/10/2021 10 yr interval EGD 10/03/[address] Paul Perez. EGD 07/29/2017 mild gastritis, otherwise normal EGD 01/10/2021 EGD EUS 12/05/2019 mild gastritis, chronic pancreatitis with PD stone [facility] CHOLECYSTECTOMY 06/14/2021 TUBAL LIGATION HX 1986 ALLERGIES Bactrim [Sulfamethoxazole-Trimet hoprim], Hydrocodone, Penicillins, and Valium [Diazepam] MEDICATIONS predniSONE [...] Take 1 tablet by mouth once daily. guoynn-xsgkyrap-ojzvwor (CREON 24) 24,000-76,000 -120,000 unit delayed release [...] daily. panto (more content not included)... Normal [facility] Amylase SerPl-cCncon 11-15-2 024 Amylase [Catalytic activity/Vol] 104 U/L Normal 30-104 [facility] Comment on above: Order Comment: Speci men Type: BLOOD SPECIMEN Ordering Facility: [facility] Address: [address] [place] [address] Performed By: #### 2 4323-8, 3, 1798-04 #### [facility] CLIA [id number] [address] [place] [address] [place] Comprehensive metabolic 2000 panelon 08-12-2024 Albumin [Mass/Vol] 4.4 g/dL Normal 3.9-4.9 [facility] Comment on above: Order Comment: Speci men Type: BLOOD SPECIMEN Ordering Facility: [facility] Address: [address] [place] [address] Performed By: #### 2 4323-8, 3, 1798-04 #### [facility] CLIA [id number] [address] [place] [address] [place] ALP [Catalytic activity/Vol] 142 U/L High 34-123 [facility] Comment on above: Order Comment: Speci men Type: BLOOD SPECIMEN Ordering Facility: [facility] Address: [address] [place] [address] Performed By: #### 2 4323-8, 3, 1798-04 #### [facility] CLIA [id number] [address] [place] [address] [place] ALT [Catalytic activity/Vol] 12 U/L Normal 7-38 [facility] Comment on above: Order Comment: Speci men Type: BLOOD SPECIMEN Ordering Facility: [facility] Address: [address] [place] [address] Performed By: #### 2 4323-8, 3, 1798-04 #### [facility] CLIA [id number] [address] [place], [place] [address] [place] Anion gap [Moles/Vol] 12 mmol/L Normal 8-15 [facility] Comment on above: Order Comment: Speci men Type: BLOOD SPECIMEN Ordering Facility: [facility] Address: [address] [place] [address] Performed By: #### 2 4323-8, 3039-3, 1798-04 #### [facility] CLIA [id number] [address] [place] [address] [place] AST [Catalytic activity/Vol] 15 U/L Normal 13-35 [facility] Comment on above: Order Comment: Speci men Type: BLOOD SPECIMEN Ordering Facility: [facility] Address: [address] [place] [address] Performed By: #### 2 4323-8, 3039-3, 1798-04 #### [facility] CLIA [id number] [address] [place] [address] [place] Bilirubin [Mass/Vol] 0.2 mg/dL Normal 0.2-1.3 [facility] Comment on above: Order Comment: Speci men Type: BLOOD SPECIMEN Ordering Facility: [facility] Address: [address] [place] [address] Performed By: #### 2 4323-8, 3, 1798-04 #### [facility] CLIA [id number] [address] [place] [address] [place] Calcium [Mass/Vol] 9.6 mg/dL Normal 8.5-10.2 [facility] Comment on above: Order Comment: Speci men Type: BLOOD SPECIMEN Ordering Facility: [facility] Address: [address] [place] [address] Performed By: #### 2 4323-8, 3, 1798-04 #### [facility] CLIA [id number] [address] [place] [address] [place] Chloride [Moles/Vol] 97 mmol/L Low 98-107 [facility] Comment on above: Order Comment: Speci men Type: BLOOD SPECIMEN Ordering Facility: [facility] Address: [address] [place] [address] Performed By: #### 2 4323-8, 0-3, 1798-04 #### [facility] CLIA [id number] [address] [place] [address] [place] CO2 [Moles/Vol] 26 mmol/L Normal 22-30 [facility] Comment on above: Order Comment: Speci men Type: BLOOD SPECIMEN Ordering Facility: [facility] Address: [address] [place] [address] Performed By: #### 2 4323-8, 3039-3, 1798-04 #### [facility] CLIA [id number] [address] [place] [address] [place] Creatinine [Mass/Vol] 0.82 mg/dL Normal 0.58-0.96 [facility] Comment on above: Order Comment: Speci men Type: BLOOD SPECIMEN Ordering Facility: [facility] Address: [address] [place] [address] Performed By: #### 2 4323-8, 3, 1798-04 #### [facility] CLIA [id number] [address] [place] [address] [place] Creatinine and Glomerular filtration rate.predicted panel (S/P/Bld) 81 mL/min/1.73m??? Normal >=60 [facility] Comment on above: Order Comment: Speci men Type: BLOOD SPECIMEN Ordering Facility: [facility] Address: [address] [place] [address] Result Comment: Pavan mated Glomerular Filtration Rate [...] actual GFR. Performed By: #### 2 4323-8, 3039-3, 1798-04 #### [facility] CLIA [id number] [address] [place] [address] [place] Glucose [Mass/Vol] 101 mg/dL High 74-99 [facility] Comment on above: Order Comment: Speci men Type: BLOOD SPECIMEN Ordering Facility: [facility] Address: [address] [place] [address] Result Comment: The [place] Diabetes Association (ADA) provides guidance for cutoff [...] Standards of Medical Care in Diabetes 2016, [place] [employer]. Diabetes Care. 2016.39(Suppl 1). Performed By: #### 2 4323-8, 3, 1798-04 #### [facility] CLIA [id number] [address] [place] [address] [place] Potassium [Moles/Vol] 4.6 mmol/L Normal 3.7-5.1 [facility] Comment on above: Order Comment: Kettyi men Type: BLOOD SPECIMEN Ordering Facility: [facility] Address: [address] [place] [address] Performed By: #### 2 4323-8, 3, 1798-04 #### [facility] CLIA [id number] [address] [place] [address] [place] Protein [Mass/Vol] 7.7 g/dL Normal 6.3-8.0 [facility] Comment on above: Order Comment: Kettyi men Type: BLOOD SPECIMEN Ordering Facility: [facility] Address: [address] [place] [address] Performed By: #### 2 4323-8, 3, 1798-04 #### [facility] CLIA [id number] [address] [place] [address] [place] Sodium [Moles/Vol] 135 mmol/L Low 136-144 [facility] Comment on above: Order Comment: Speci men Type: BLOOD SPECIMEN Ordering Facility: [facility] Address: [address] [place] [address] Performed By: #### 2 4323-8, 3040-3, 179-8 #### [facility] CLIA [id number] [address] [place] [address] [place] Urea nitrogen [Mass/Vol] 15 mg/dL Normal 7-21 [facility] Comment on above: Order Comment: Speci men Type: BLOOD SPECIMEN Ordering Facility: [facility] Address: [address] [place] [address] Performed By: #### 2 4323-8, 3039-3, 8 #### [facility] CLIA [id number] [address] [place] [address] [place] HbA1c (Bld)on 08-12-2024 Average glucose Estimated from glycated hemoglobin (Bld) [Mass/Vol] 131 mg/dL Normal [facility] Comment on above: Order Comment: Speci men Type: BLOOD SPECIMENOrdering Facility: [facility] Address: [address] [place] [address] Result Comment: eAG: (Estimated average glucose) is a calculated value from HgbA1c and is event representative of the average blood glucose level in the last 2-3 month period. Performed By: #### 5 5454-3 ####[facility] [id number] [place] [address] [place] HbA1c (Bld) [Mass fraction] 6.2 % High 4.3-5.6 [facility] Comment on above: Order Comment: Speci men Type: BLOOD SPECIMENOrdering Facility: [facility] Address: [address] [place] [address] Result Comment: Amer [place] Diabetes Association guidelines indicate that patients with HgbA1c in the range 5.7-6.4% are at increased risk for development of diabetes, and intervention by lifestyle modification may be beneficial. HgbA1c greater or equal to 6.5% is considered diagnostic of diabetes. Performed By: #### 5 5454-3 ####[facility] [id number] [address] [place] Lipase SerPl-cCncon 08-12-20 24 Lipase [Catalytic activity/Vol] 87 U/L High 16-61 [facility] Comment on above: Order Comment: Speci men Type: BLOOD SPECIMEN Ordering Facility: [facility] Address: [address] [place] [address] Performed By: #### 2 4323-8, 3040-3, 1798-8 #### [facility] CLIA [id number] [address] [place] [address] OF [place] Matteo 08-11-2024 CNPN Telephone (INTMWS) -------- GRACIE BANUELOS ([id number]) 1965 F [facility]* Date Time Provider Department 08/11/24 MISBAH ELKINS INTMWS During your visit today, we recorded the following information about you: Maribeth Owen LPN 08/11/2024 3:21 PM Signed ----- Message from Soila Easton APRN.LEGAL EXECUTIVE ASSISTANT sent at 08/11/2024 3:16 PM EST ----- No pneumonia on chest xray. Continue current treatment and upcoming follow up appointment. Thank you GBARIELLA Stahl Laurie Lynn, LPN 08/11/2024 3:23 PM Signed .Left a message for pt to call the office and ask to speak to a nurse. MCKENNA Juárez Stephanie, RN 08/11/2024 3:26 PM Signed Patient notified of results and provider's instructions. Patient verbalizes understanding. Eva Martines RN Allergies As of Date: 08/11/2024 Noted Allergy Reaction BACTRIM (SULFAMETHOXAZOLE-TRIMET H*11/28/2022 4 - Hives HYDROCODONE 08/02/2020 9 - [...] 1 tablet by mouth once daily. - jykfmp-xqpyivex-ogzmnsc (CREON 24) 24,000-76,000 -120,000 unit delayed release [...] stress female [N39.3] 11/24/2014 HPV test positive [AEU1885] 11/24/2014 Alcohol dependence in remission (HCC) [F10.21] [...] colonic polyps (more content not included)... Normal [facility] CNOVon 08-10-2024 CNOV Office Visit (INTMWS ) -------- GRACIE BANUELOS ([id number]) 1965 F [employer] Date Time Provider Department 08/10/24 5:00 PM SOILA EASTON During your visit today, we recorded the following information about you: Pulse Respiration Blood pressure Weight 96/minute 16/minute 118/80 64.4 kg Soila Easton APRN.LEGAL EXECUTIVE ASSISTANT 08/10/2024 6:11 PM Signed CC: Patient presents with: Urge Urinary Incontinence: Urinary concerns HPI Gracieterrance Banuelos is a 59 year [...] airways disease (HCC) Alcohol dependence in remission ([facility]) 07/10/2015 Alcohol use disorder 08/27/2017 Alcohol-induced pancreatitis Alcoholic hepatitis 05/18/2012 Alcoholic liver disease ([facility]) 11/16/2013 Anemia Anxiety with depression Asthma Chronic hypoxemic respiratory failure (HCC) COPD (chronic obstructive pulmonary disease) ([facility]) 05/25/2012 DDD (degenerative disc disease), [...] to infectious organism 2017 Severe protein-calorie malnutrition ([facility]) 01/07/2019 Stage 3 severe COPD by GOLD classification ([facility]) 2018 Tobacco use greater than [...] 06/14/2021 TUBAL LIGATION HX 1986 ALLERGIES Bactrim [Sulfamethoxazole-Trimet hoprim], Hydrocodone, Penicillins, and Valium [Diazepam] MEDICATIONS ondansetron [...] Take 1 tablet by mouth once daily. lsrtkd-cwddvicp-gqhhvbc (CREON 24) 24,000-76,000 -120,000 unit delayed release [...] by m (more content not included)... [facility]2024 [facility] Telephone (INTMWS) -------- GRACIE BANUELOS ([id number]) 1965 [address] [employer] Date Time Provider Department 08/10/24 MISBAH ELKINS INTMWS During your visit today, [...] of Date: 08/10/2024 Noted Allergy Reaction BACTRIM (SULFAMETHOXAZOLE-TRIMET H*11/28/2022 4 - Hives HYDROCODONE 08/02/2020 9 - [...] 1 tablet by mouth once daily. - skqhbk-znltadfv-hcickgz (CREON 24) 24,000-76,000 -120,000 unit delayed release [...] stress female [N39.3] 11/24/2014 HPV test positive [KOB6427] 11/24/2014 Alcohol dependence in remission (HCC) [F10.21] 07/10/2015 11/02/2018 Pulmonary emphysema (HCC) [J43.9] 11/27/2015 Irritable bowel syndrome with both constipation*08/27/2017 Alcohol use disorder, moderate, dependence (HCC*08/27/2017 DDD (de (more content not included)... Normal [facility] UA DIP, URINE (POC)on 2023 BILIRUBIN UA (POCT) Negative Negative [facility] CLARITY UA (POCT) Clear [facility] COLOR UA (POCT) Yellow [facility] GLUCOSE UA (POCT) Negative Negative mg/dL [facility] Hemoglobin Ql (U) Negative Negative [facility] KETONE UA (POCT) Negative Negative mg/dL [facility] LEUKOCYTES UA (POCT) Negative Negative [facility] ([facility]) Negative [facility] PH UA (POCT) 6.0 4.5 - 8.0 [facility] Protein Ql (U) Negative Negative mg/dL [facility] SPECIFIC GRAVITY UA (POCT) 1.010 1.005 - 1.030 [facility] UROBILINOGEN UA (POCT) 0.2 Regina l E.U./dL [facility] Location:[facility], [address] [place] [address], [place], [place], [id number] [place] [address] POINT OF CARE [facility] XR CHEST 2V FRONTAL/LATon XR CHEST 2V FRONTAL/LAT * * *Final Report* * * DATE OF EXAM: Aug 10 [...] tissues: Unremarkable. IMPRESSION: No acute radiographic abnormality. Charge Entry: [facility] Transcribe Date/Time: Aug 11 2024 2:55P Dictated by : JEAN-CLAUDE MANRIQUEZ MD This examination was interpreted and the report reviewed and electronically signed by: JEAN-CLAUDE MANRIQUEZ MD on Aug 11 2024 2:56PM EST [id number] Normal [facility] CBC W Auto Differential pane l (Bld)on 08-05-2024 Basophils (Bld) [#/Vol] 0.16 10*3/uL High <0.11 [facility] Comment on above: Order Comment: Speci men Type: BLOOD SPECIMENOrdering Facility: [facility] Address: [address] [place] [address] Performed By: #### 5 7021-8 ####[facility] [id number] [place] [address] [place] Basophils/100 WBC (Bld) 1.1 % Normal [facility] Comment on above: Order Comment: Speci men Type: BLOOD SPECIMENOrdering Facility: [facility] Address: [address] [place] [address] Performed By: #### 5 7021-8 ####[facility] [id number] [place] [address] [place] Differential cell count method Nom (Bld) Auto Normal [facility] Comment on above: Order Comment: Speci men Type: BLOOD SPECIMENOrdering Facility: [facility] Address: [address] [place] [address] Performed By: #### 5 7021-8 ####[facility] [id number] [place] [address] [place] Eosinophils (Bld) [#/Vol] 0.39 10*3/uL Normal <0.46 [facility] Comment on above: Order Comment: Speci men Type: BLOOD SPECIMENOrdering Facility: [facility] Address: [address] [place] [address] Performed By: #### 5 7021-8 ####[facility] [id number] [place] [address] [place] Eosinophils/100 WBC (Bld) 2.7 % Normal [facility] Comment on above: Order Comment: Speci men Type: BLOOD SPECIMENOrdering Facility: [facility] Address: [address] [place] [address] Performed By: #### 5 7021-8 ####[facility] [id number] [place] [address] [place] Erythrocyte distribution width (RBC) [Ratio] 15.7 % High 11.5-15.0 [facility] Comment on above: Order Comment: Speci men Type: BLOOD SPECIMENOrdering Facility: [facility] Address: [address] [place] [address] Performed By: #### 5 7021-8 ####[facility] [id number] [place] [address] [place] Hematocrit (Bld) [Volume fraction] 42.5 % Normal 36.0-46.0 [facility] Comment on above: Order Comment: Speci men Type: BLOOD SPECIMENOrdering Facility: [facility] Address: [address] [place] [address] Performed By: #### 5 7021-8 ####[facility] [id number] [place] [address] [place] Hemoglobin (Bld) [Mass/Vol] 13.6 g/dL Normal 11.5-15.5 [facility] Comment on above: Order Comment: Speci men Type: BLOOD SPECIMENOrdering Facility: [facility] Address: [address] [place] [address] Performed By: #### 5 7021-8 ####[facility] [id number] [place] [address] [place] Immature granulocytes (Bld) [#/Vol] 0.12 10*3/uL High <0.10 [facility] Comment on above: Order Comment: Speci men Type: BLOOD SPECIMENOrdering Facility: [facility] Address: [address] [place] [address] Performed By: #### 5 7021-8 ####[facility] [id number] [place] [address] [place] Immature granulocytes/100 WBC (Bld) 0.8 % Normal [facility] Comment on above: Order Comment: Speci men Type: BLOOD SPECIMENOrdering Facility: [facility] Address: [address] [place] [address] Performed By: #### 5 7021-8 ####[facility] [id number] [place] [address] [place] Lymphocytes (Bld) [#/Vol] 3.77 10*3/uL Normal 1.00-4.00 [facility] Comment on above: Order Comment: Speci men Type: BLOOD SPECIMENOrdering Facility: [facility] Address: [address] [place] [address] Performed By: #### 5 7021-8 ####[facility] [id number] [place] [address] [place] Lymphocytes/100 WBC (Bld) 26.5 % Normal [facility] Comment on above: Order Comment: Speci men Type: BLOOD SPECIMENOrdering Facility: [facility] Address: [address] [place] [address] Performed By: #### 5 7021-8 ####[facility] [id number] [place] [address] [place] MCH (RBC) [Entitic mass] 26.8 pg Normal 26.0-34.0 [facility] Comment on above: Order Comment: Speci men Type: BLOOD SPECIMENOrdering Facility: [facility] Address: [address] [place] [address] Performed By: #### 5 7021-8 ####[facility] [id number] [place] [address] [place] MCHC (RBC) [Mass/Vol] 32.0 g/dL Normal 30.5-36.0 [facility] Comment on above: Order Comment: Speci men Type: BLOOD SPECIMENOrdering Facility: [facility] Address: [address] [place] [address] Performed By: #### 5 7021-8 ####[facility] [id number] [place] [address] [place] MCV (RBC) [Entitic vol] 83.8 fL Normal 80.0-100.0 [facility] Comment on above: Order Comment: Speci men Type: BLOOD SPECIMENOrdering Facility: [facility] Address: [address] [place] [address] Performed By: #### 5 7021-8 ####[facility] [id number] [place] [address] [place] Monocytes (Bld) [#/Vol] 1.27 10*3/uL High <0.87 [facility] Comment on above: Order Comment: Speci men Type: BLOOD SPECIMENOrdering Facility: [facility] Address: [address] [place] [address] Performed By: #### 5 7021-8 ####[facility] [id number] [place] [address] [place] Monocytes/100 WBC (Bld) 8.9 % Normal [facility] Comment on above: Order Comment: Speci men Type: BLOOD SPECIMENOrdering Facility: [facility] Address: [address] [place] [address] Performed By: #### 5 7021-8 ####[facility] [id number] [place] [address] [place] Neutrophils (Bld) [#/Vol] 8.50 10*3/uL High 1.45-7.50 [facility] Comment on above: Order Comment: Speci men Type: BLOOD SPECIMENOrdering Facility: [facility] Address: [address] [place] [address] Performed By: #### 5 7021-8 ####[facility] LABCLIA [id number] [place] [address] [place] Neutrophils/100 WBC (Bld) 60.0 % Normal [facility] Comment on above: Order Comment: Speci men Type: BLOOD SPECIMENOrdering Facility: [facility] Address: [address] [place] [address] Performed By: #### 5 7021-8 ####[facility] LABCLIA [id number] [place] [address] [place] Nucleated RBC (Bld) [#/Vol] 10*3/uL Normal <0.01 [facility] Comment on above: Order Comment: Speci men Type: BLOOD SPECIMENOrdering Facility: [facility] Address: [address] [place] [address] Performed By: #### 5 7021-8 ####[facility] LABCLIA [id number] [place] [address] [place] Nucleated RBC/100 WBC (Bld) [Ratio] 0.0 /100 WBC Normal [facility] Comment on above: Order Comment: Speci men Type: BLOOD SPECIMENOrdering Facility: [facility] Address: [address] [place] [address] Performed By: #### 5 7021-8 ####[facility] LABCLIA [id number] [place] [address] [place] Platelet mean volume (Bld) [Entitic vol] 10.5 fL Normal 9.0-12.7 [facility] Comment on above: Order Comment: Speci men Type: BLOOD SPECIMENOrdering Facility: [facility] Address: [address] [place] [address] Performed By: #### 5 7021-8 ####[facility] LABCLIA [id number] [place] [address] [place] Platelets (Bld) [#/Vol] 340 10*3/uL Normal 150-400 [facility] Comment on above: Order Comment: Speci men Type: BLOOD SPECIMENOrdering Facility: [facility] Address: [address] [place] [address] Performed By: #### 5 7021-8 ####[facility] LABIA [id number] [place] [address] [place] RBC (Bld) [#/Vol] 5.07 10*6/uL Normal 3.90-5.20 [facility] Comment on above: Order Comment: Speci men Type: BLOOD SPECIMENOrdering Facility: [facility] Address: [address] [place] [address] Performed By: #### 5 7021-8 ####[facility] LABIA [id number] [place] [address] [place] WBC (Bld) [#/Vol] 14.21 10*3/uL High 3.70-11.00 [facility] Comment on above: Order Comment: Speci men Type: BLOOD SPECIMENOrdering Facility: [facility] Address: [address] [place] [address] Performed By: #### 5 7021-8 ####[facility] LABCLIA [id number] [id number] [id number] [place] CNOVon 08-05-2024 CNOV Office Visit (INTMWS ) -------- GRACIE BANUELOS ([id number]) 1965 F [place]* Date Time Provider [...] anxiety and depression. She was admitted to [facility] from 01/01 to 01/04 for [...] times and is only getting Remeron from [facility]. She says she has panic and [...] Stage 3 severe COPD by GOLD classification ([facility]) 2018 Tobacco use greater than 30 years Unspecified hemorrhoids without mention of complication Urine, incontinence, stress female 11/24/2014 PAST SURGICAL HISTORY Procedure Laterality Date APPENDECTOMY at age 14 COLONOSCOPY 04/15/[address], [address] Paul Perez. COLONOSCOPY 01/23/2015 2-Tubular adenomas. D (more content not included)... Normal [facility] CNCOon 07-13-2024 CNCO Letter Text Normal [facility] XR Chest PA and Lateralon IMPRESSION: Bibasilar pulmonary infiltrates versus atelectasis. Charge Entry: PSCB Transcribe Date/Time: Jan 27 2024 4:18P [...] shows degenerative changes. DIVISION OF RADIOLOGY Provider, Jacques Bacon - 01/27/2024 * * *Final Report* * [...] IMPRESSION IMPRESSION: Bibasilar pulmonary infiltrates versus atelectasis. Charge Entry: PSCB Transcribe Date/Time: Jan 27 2024 4:18P Dictated by : CHELA GAMING MD This examination was interpreted and the report reviewed and electronically signed by: CHELA GAMING MD on Jan 27 2024 4:20PM EST [facility] XR Chest PA and LateralOrder ed By: Ccf Provider on 01-27-2024 [facility] XR Chest PA and Lateralon Radiology Study observation (narrative) [facility] Absolute lymphocyte countOrd ered By: Bert Greenwood on 01-05-2024 Lymphocytes Auto (Unsp spec) [#/Vol] 3.82 10*3/uL 0.83-4.51 [facility] Basophil percentageOrdered B y: Bert Greenwood on 01-05-2024 Basophil percentage Not Reportable [facility] Chloride [Moles/Vol] 99 mmol/L 98-[address] [facility] [facility] Glucose [Mass/Vol] 122 mg/dL 74-106 [facility] Comment on above: Fasting Glucose resu lt from 100 to 125 mg/dL suggests IMPAIRED HOMEOSTASIS per A.D.A. criteria. Hemoglobin (Bld) [Mass/Vol] 13.1 g/dL 12.0-15.0 [facility] Neutrophils (Bld) [#/Vol] 24.7 10*3/uL 2.0-7.7 [facility] Potassium [Moles/Vol] 5.0 mmol/L 3.5-5.1 [facility] Sodium [Moles/Vol] 132 mmol/L 136-145 [facility] WBC (Bld) [#/Vol] 29.4 10*3/uL 4.4-11.0 [facility] Blood band neutrophil count as percentage of total leukocytesOrdered By: Bert Greenwood on 01-05-2024 Band form neutrophils/100 WBC (Bld) 3 % 0-5 [facility] Blood lymphocytes/100 leukoc ytesOrdered By: Bert Greenwood on 01-05-2024 Lymphocytes/100 WBC (Bld) 13 % 19-41 [facility] Blood monocytes/100 leukocyt esOrdered By: Bert Greenwood on 01-05-2024 Monocytes/100 WBC (Bld) 2 % 0-10 [facility] Blood platelet adequacy dete ction by light microscopyOrdered By: Bert Greenwood on 01-05-2024 Platelets LM Ql (Bld) MOD INC ADEQ [facility] Blood segmented neutrophils/ 100 leukocytesOrdered By: Bert Greenwood on 01-05-2024 Segmented neutrophils/100 WBC (Bld) 81 % 47-70 [facility] Determination of erythrocyte mean corpuscular volume (MCV)Ordered By: Bert Greenwood on 01-05-2024 MCV (RBC) [Entitic vol] 83.2 fL 81-99 [facility] Erythrocyte distribution wid th ratioOrdered By: Bert Greenwood on 01-05-2024 Erythrocyte distribution width (RBC) [Ratio] 16.0 % 11.6-14.6 [facility] Erythrocyte distribution wid th standard deviationOrdered By: Bert Greenwood on 01-05-2024 Erythrocyte distribution width (RBC) [Entitic vol] 48.2 fL 35.1-43.9 [facility] Hematocrit Auto (Bld) [Volum e fraction]Ordered By: Bert Greenwood on 01-05-2024 Hematocrit (Bld) [Volume fraction] 42.2 % 37-47 [facility] Laboratory - Chemistry and C hemistry - challengeOrdered By: Bert Greenwood on 01-05-2024 CO2 [Moles/Vol] 26.0 mmol/L 21.0-32.0 [facility] Urea nitrogen/Creatinine [Mass ratio] 28.0 mg/mg 10-20 [facility] Laboratory - Hematology and Cell countsOrdered By: Bert Gerenwood on 01-05-2024 MCH (RBC) [Entitic mass] 25.8 pg 27.0-32.0 [facility] MCHC (RBC) [Mass/Vol] 31.0 g/dL 32-36 [facility] Myelocytes/100 WBC (Bld) 1 % 0-0 [facility] Platelet mean volume (Bld) [Entitic vol] 10.1 fL 6.2-12.0 [facility] Platelets (Bld) [#/Vol] 498 10*3/uL 150-450 [facility] No Panel InformationOrdered By: Bert Greenwood on 01-05-2024 Estimated Creatinine Clearance Calc 60.35 ml/min [facility] Estimated GFR (MDRD) Amer 91 mL/min >60 [facility] Comment on above: GFR Calc Estimated GFR (MDRD) Non-Af Amer 75 mL/min >60 [facility] Comment on above: Non- GFR Calc RBC Auto (Bld) [#/Vol]Ordere d By: Bert Greenwood on 01-05-2024 RBC (Bld) [#/Vol] 5.07 10*6/uL 4.2-5.4 [facility] RBC morphologyOrdered By: Dorian Greenwood on 01-05-2024 RBC morphology finding Nom (Bld) NORM C+C NORMAL NORM C&C [facility] Review by pathologistOrdered By: Bert Greenwood on 01-05-2024 Pathologist review Geovany (Unsp spec) [Interp] Tiesha gotti [facility] Pathologist review Geovany (Unsp spec) [Interp] Reviewed [facility] Comment on above: Previous reported re sult: Tiesha gotti Edited by: DESHAWN on 01/06/24:1540Neutrophilic leukocytosis with left shift.Thrombocytosis.Clinical correlation necessary.Javier Best M.D. 01/06/24 AMENDED REPORT 01/06/24 1540 PATH REV previously reported as: January foll Serum or plasma calcium esthela urement (mass/volume)Ordered By: Bert Greenwood on 01-05-2024 Calcium [Mass/Vol] 10.5 mg/dL 8.5-10.1 [facility] Serum or plasma creatinine m easurement (mass/volume)Ordered By: Bert Greenwood on 01-05-2024 Creatinine [Mass/Vol] 0.82 mg/dL 0.55-1.02 [facility] Comment on above: The validity of the calculated GFR & GFRAA in patients over 70 years has not been determined. Clinical correlation is essential. Serum or plasma urea nitroge n measurement (mass/volume)Ordered By: Bert Greenwood on 01-05-2024 Urea nitrogen [Mass/Vol] 23 mg/dL 7-18 [facility] Thin prep Papanicolaou smear with manual screeningOrdered By: Bert Greenwood on 01-05-2024 Thin prep Papanicolaou smear with manual screening 7 5-15 [facility] Total cell countOrdered By: Bert Greenwood on 01-05-2024 Cells counted Molgen (Bld/Tiss) [#] 100 MANUAL DIFF [facility] Bacteria identified Respirat ory culture Nom (Unsp spec)Ordered By: Carin Kt on 01-04-2024 Respiratory Culture Presumptive C albicans [facility] Gram stain for investigation of transfusion reactionOrdered By: Kt on 01-04-2024 Microscopic observation Gram stain Nom (Unsp spec) [facility] Automated lymphocyte count a s percentage of total leukocytesOrdered By: Kt on 01-03-2024 Lymphocytes/100 WBC Auto (Unsp spec) 4.0 % 19-41 [facility] Basophil percentageOrdered B y: White on 01-03-2024 Basophils/100 WBC (Bld) 0.3 % 0-1 [facility] Bilirubin [Mass/Vol] 0.20 mg/dL 0.20-1.00 [facility] Comment on above: For patients on eltr ombopag therapy, use of Dimension Straughn TBIL is not recommended. Chloride [Moles/Vol] 105 mmol/L 98-107 [facility] Eosinophils/100 WBC (Bld) 0.2 % 0-5 [facility] Glucose [Mass/Vol] 227 mg/dL 74-106 [facility] Comment on above: Glucose result great er than or equal to 200 mg/dLsuggests DIABETES MELLITUS per A.D.A. criteria. Monocytes/100 WBC (Bld) 2.5 % 0-10 [facility] Potassium [Moles/Vol] 4.3 mmol/L 3.5-5.1 [facility] Protein [Mass/Vol] 7.9 g/dL 6.4-8.2 [facility] Sodium [Moles/Vol] 135 mmol/L 136-145 [facility] Immature granulocytes/100 WB C Auto (Bld)Ordered By: Carin Meraz on 01-03-2024 Immature granulocytes/100 WBC (Bld) 1.700 % 0.0-0.9 [facility] Comment on above: IG% - Immature Granu locytes (promyelocytes, myelocytes and metamyelocytes) > 1% indicates that a LEFT SHIFT is Present. Laboratory - Chemistry and C hemistry - challengeOrdered By: Carin Meraz on 01-03-2024 Albumin/Globulin [Mass ratio] 0.6 {ratio} 0.9-2.4 [facility] ALP [Catalytic activity/Vol] 129 U/L 45-117 [facility] ALT [Catalytic activity/Vol] 12 U/L 13-56 [facility] CO2 [Moles/Vol] 23.0 mmol/L 21.0-32.0 [facility] Globulin (S) [Mass/Vol] 5.0 g/dL 2.2-4.2 [facility] Urea nitrogen/Creatinine [Mass ratio] 14.3 mg/mg 10-20 [facility] Laboratory - Hematology and Cell countsOrdered By: Carin Meraz on 01-03-2024 Nucleated RBC/100 WBC (Bld) [Ratio] 0 % 0-5 [facility] No Panel InformationOrdered By: Carin Meraz on 01-03-2024 Estimated Creatinine Clearance Calc 50.50 ml/min [facility] Estimated GFR (MDRD) Amer 74 mL/min >60 [facility] Comment on above: GFR Calc Estimated GFR (MDRD) Non-Af Amer 61 mL/min >60 [facility] Comment on above: Non- GFR Calc Serum or plasma calcium esthela urement (mass/volume)Ordered By: Carin Meraz on 01-03-2024 Calcium [Mass/Vol] 8.9 mg/dL 8.5-10.1 [facility] Serum or plasma creatinine m easurement (mass/volume)Ordered By: Carin Meraz on 01-03-2024 Creatinine [Mass/Vol] 0.98 mg/dL 0.55-1.02 [facility] Comment on above: The validity of the calculated GFR & GFRAA in patients over 70 years has not been determined. Clinical correlation is essential. Serum or plasma urea nitroge n measurement (mass/volume)Ordered By: Carin Meraz on 01-03-2024 Urea nitrogen [Mass/Vol] 14 mg/dL 7-18 [facility] Thin prep Papanicolaou smear with manual screeningOrdered By: Carin Meraz on 01-03-2024 Thin prep Papanicolaou smear with manual screening 2.9 g/dL 3.2-5.0 [facility] Thin prep Papanicolaou smear with manual screening 12 U/L 15-37 [facility] Thin prep Papanicolaou smear with manual screening 7 5-15 [facility] Absolute lymphocyte countOrd ered By: Víctor Huerta on 01-02-2024 Lymphocytes Auto (Unsp spec) [#/Vol] 2.46 10*3/uL 0.83-4.51 [facility] Activated partial thrombopla stin time (aPTT) in platelet poor plasma by coagulation aOrdered By: Víctor Huerta on 01-02-2024 aPTT Coag (PPP) [Time] 32.2 s 24.1-36.2 [facility] Assessment of wrist artery p atency prior to arterial punctureOrdered By: Víctor Huerta on 01-02-2024 Arterial patency Wrist artery --pre arterial puncture Positive [facility] Automated lymphocyte count a s percentage of total leukocytesOrdered By: Víctor Huerta on 01-02-2024 Lymphocytes/100 WBC Auto (Unsp spec) 9.6 % 19-41 [facility] Base excessOrdered By: Brandon turner Deanna on 01-02-2024 Base excess Calc (BldV) [Moles/Vol] -4 mmol/L -2-2 [facility] Basophil percentageOrdered B y: Víctor Deanna on 01-02-2024 Lactate [Moles/Vol] 1.2 mmol/L 0.4-2.0 [facility] Basophil percentage 22 mmol/L [facility] Basophils/100 WBC (Bld) 92 % 95-99 [facility] Bilirubin [Mass/Vol] 0.30 mg/dL 0.20-1.00 [facility] Comment on above: For patients on eltr ombopag therapy, use of Dimension Straughn TBIL is not recommended. Protein [Mass/Vol] 8.3 g/dL 6.4-8.2 [facility] Basophils/100 WBC (Bld) 0.4 % 0-1 [facility] Chloride [Moles/Vol] 101 mmol/L 98-107 [facility] Eosinophils/100 WBC (Bld) 0.6 % 0-5 [facility] Glucose [Mass/Vol] 126 mg/dL 74-106 [facility] Comment on above: Fasting Glucose resu lt greater than or equal to 126 mg/dL suggests DIABETES MELLITUS per A.D.A. criteria. Hemoglobin (Bld) [Mass/Vol] 12.9 g/dL 12.0-15.0 [facility] Monocytes/100 WBC (Bld) 6.9 % 0-10 [facility] Neutrophils (Bld) [#/Vol] 21.0 10*3/uL 2.0-7.7 [facility] Neutrophils/100 WBC (Bld) 81.7 % 47-70 [facility] Potassium [Moles/Vol] 3.9 mmol/L 3.5-5.1 [facility] Sodium [Moles/Vol] 133 mmol/L 136-145 [facility] WBC (Bld) [#/Vol] 25.7 10*3/uL 4.4-11.0 [facility] Blood manual differential co mment interpretation (narrative result)Ordered By: Víctor Huerta on 01-02-2024 Manual differential comment Geovany (Bld) [Interp] SCANNED [facility] Determination of erythrocyte mean corpuscular volume (MCV)Ordered By: Víctor Huerta on 01-02-2024 MCV (RBC) [Entitic vol] 83.2 fL 81-99 [facility] Direct bilirubinOrdered By: Víctor Huerta on 01-02-2024 Bilirubin.direct [Mass/Vol] 0.13 mg/dL 0.00-0.30 [facility] Erythrocyte distribution wid th ratioOrdered By: Víctor Huerta on 01-02-2024 Erythrocyte distribution width (RBC) [Ratio] 15.6 % 11.6-14.6 [facility] Erythrocyte distribution wid th standard deviationOrdered By: Víctor Huerta on 01-02-2024 Erythrocyte distribution width (RBC) [Entitic vol] 47.1 fL 35.1-43.9 [facility] Hematocrit Auto (Bld) [Volum e fraction]Ordered By: Víctor Huerta on 01-02-2024 Hematocrit (Bld) [Volume fraction] 41.5 % 37-47 [facility] Immature granulocytes/100 WB C Auto (Bld)Ordered By: Víctor Huerta on 01-02-2024 Immature granulocytes/100 WBC (Bld) 0.800 % 0.0-0.9 [facility] Comment on above: IG% - Immature Granu locytes (promyelocytes, myelocytes and metamyelocytes) > 1% indicates that a LEFT SHIFT is Present. Laboratory - Chemistry and C hemistry - challengeOrdered By: Víctor Huerta on 01-02-2024 ALP [Catalytic activity/Vol] 148 U/L 45-117 [facility] ALT [Catalytic activity/Vol] 13 U/L 13-56 [facility] Globulin (S) [Mass/Vol] 5.1 g/dL 2.2-4.2 [facility] Natriuretic peptide B (Bld) [Mass/Vol] 75.1 pg/mL 0-100 [facility] CO2 [Moles/Vol] 25.0 mmol/L 21.0-32.0 [facility] Urea nitrogen/Creatinine [Mass ratio] 14.7 mg/mg 10-20 [facility] Laboratory - CoagulationOrde red By: Víctor Huerta on 01-02-2024 INR Coag (Bld) [Relative time] 1.1 {INR} [facility] PT Coag (PPP) [Time] 14.5 s 11.7-14.9 [facility] Laboratory - Hematology and Cell countsOrdered By: Víctor Huerta on 01-02-2024 MCH (RBC) [Entitic mass] 25.9 pg 27.0-32.0 [facility] MCHC (RBC) [Mass/Vol] 31.1 g/dL 32-36 [facility] Nucleated RBC/100 WBC (Bld) [Ratio] 0 % 0-5 [facility] Platelet mean volume (Bld) [Entitic vol] 9.8 fL 6.2-12.0 [facility] Platelets (Bld) [#/Vol] 311 10*3/uL 150-450 [facility] Laboratory - Microbiology an d Antimicrobial susceptibilityOrdered By: Víctor Huerta on 01-02-2024 Bacteria identified Cx Nom (Bld) No growth in 5 days. [facility] SARS-CoV-2 (COVID-19) RNA KANDY+probe Ql (Unsp spec) [facility] Measurement, pHOrdered By: Tiffani Huerta on 01-02-2024 pH (Unsp spec) 7.42 [pH] 7.35-7.45 [facility] No Panel InformationOrdered By: Víctor Huerta on 01-02-2024 Arterial Blood Partial Pressure CO2 32.2 mmHg 35-45 [facility] Arterial Blood Partial Pressure O2 62 mmHG 75-100 [facility] Blood Gas Bicarbonate Actual 20.7 mmol/L 22-26 [facility] Blood Gas Oxygen Percent 21.0 [facility] Blood Gas Sample Site R Radial [facility] Blood Gas Specimen Type ART [facility] Blood Gas Vent Mode Not entered [facility] Oxygen Delivery Device Room Air [facility] Estimated Creatinine Clearance Calc 51.55 ml/min [facility] Estimated GFR (MDRD) Amer 77 mL/min >60 [facility] Comment on above: GFR Calc Estimated GFR (MDRD) Non-Af Amer 63 mL/min >60 [facility] Comment on above: Non- GFR Calc Troponin I High Sensitivity 13 pg/mL 3.0-54.0 [facility] Comment on above: Please Note: [place] t Units and Gender Specific Reference Ranges. For more information see Policy Stat Procedure Straughn High Sensitivity Troponin (TNIH) and attachments. RBC Auto (Bld) [#/Vol]Ordere d By: Víctor Huerta on 01-02-2024 RBC (Bld) [#/Vol] 4.99 10*6/uL 4.2-5.4 [facility] Review by pathologistOrdered By: Víctor Huerta on 01-02-2024 Pathologist review Geovany (Unsp spec) [Interp] May foll [facility] Serum or plasma calcium esthela urement (mass/volume)Ordered By: Víctor Huerta on 01-02-2024 Calcium [Mass/Vol] 8.9 mg/dL 8.5-10.1 [facility] Serum or plasma creatinine m easurement (mass/volume)Ordered By: Víctor Huerta on 01-02-2024 Creatinine [Mass/Vol] 0.96 mg/dL 0.55-1.02 [facility] Comment on above: The validity of the calculated GFR & GFRAA in patients over 70 years has not been determined. Clinical correlation is essential. Serum or plasma urea nitroge n measurement (mass/volume)Ordered By: Víctor Huerta on 01-02-2024 Urea nitrogen [Mass/Vol] 14 mg/dL 7-18 [facility] Serum procalcitonin measurem entOrdered By: Carin Meraz on 01-02-2024 Procalcitonin [Mass/Vol] 0.11 ng/mL 0.00-0.09 [facility] Comment on above: A procalcitonin (PCT [...] smear with manual screening 3.2 g/dL 3.2-5.0 [facility] Thin prep Papanicolaou smear with manual screening 14 U/L 15-37 [facility] Thin prep Papanicolaou smear with manual screening 7 5-15 [facility] Influenza virus A and B and SARS-CoV-2 (COVID-19) Ag panel - Upper respiratory specimOrdered By: Tasneem Dykes on 07-08-2023 SARS-CoV-2 (COVID-19) RNA KANDY+probe Ql (Resp) [facility] Absolute lymphocyte countOrd ered By: ED PROVIDER on 06-02-2023 Lymphocytes Auto (Unsp spec) [#/Vol] 2.95 10*3/uL 0.83-4.51 [facility] Basophil percentageOrdered B y: ED PROVIDER on 06-02-2023 Basophils/100 WBC (Bld) 1.0 % 0-1 [facility] Chloride [Moles/Vol] 105 mmol/L 98-107 [facility] Eosinophils/100 WBC (Bld) 3.6 % 0-5 [facility] Glucose [Mass/Vol] 117 mg/dL 74-106 [facility] Comment on above: Fasting Glucose resu lt from 100 to 125 mg/dL suggests IMPAIRED HOMEOSTASIS per A.D.A. criteria. Neutrophils (Bld) [#/Vol] 7.4 10*3/uL 2.0-7.7 [facility] Neutrophils/100 WBC (Bld) 63.1 % 47-70 [facility] Potassium [Moles/Vol] 4.2 mmol/L 3.5-5.1 [facility] Sodium [Moles/Vol] 141 mmol/L 136-145 [facility] WBC (Bld) [#/Vol] 11.7 10*3/uL 4.4-11.0 [facility] Blood erythrocytes count (nu mber/volume)Ordered By: ED PROVIDER on 06-02-2023 RBC (Bld) [#/Vol] 4.88 10*6/uL 4.2-5.4 [facility] Blood hemoglobin measurement (mass/volume)Ordered By: ED PROVIDER on 06-02-2023 Hemoglobin (Bld) [Mass/Vol] 13.3 g/dL 12.0-15.0 [facility] Blood lymphocytes/100 leukoc ytesOrdered By: ED PROVIDER on 06-02-2023 Lymphocytes/100 WBC (Bld) 25.1 % 19-41 [facility] Blood monocytes/100 leukocyt esOrdered By: ED PROVIDER on 06-02-2023 Monocytes/100 WBC (Bld) 6.4 % 0-10 [facility] Blood platelet mean volumeOr dered By: ED PROVIDER on 06-02-2023 Platelet mean volume (Bld) [Entitic vol] 10.1 fL 6.2-12.0 [facility] Determination of erythrocyte mean corpuscular volume (MCV)Ordered By: ED PROVIDER on 06-02-2023 MCV (RBC) [Entitic vol] 83.2 fL 81-99 [facility] Hematocrit Auto (Bld) [Volum e fraction]Ordered By: ED PROVIDER on 06-02-2023 Hematocrit (Bld) [Volume fraction] 40.6 % 37-47 [facility] Influenza virus A and B and SARS-CoV-2 (COVID-19) Ag panel - Upper respiratory specimOrdered By: Levar Handy on 06-02-2023 SARS-CoV-2 (COVID-19) RNA KANDY+probe Ql (Resp) [facility] Laboratory - Chemistry and C hemistry - challengeOrdered By: ED PROVIDER on 06-02-2023 CO2 [Moles/Vol] 27.0 mmol/L 21.0-32.0 [facility] Urea nitrogen/Creatinine [Mass ratio] 6.9 mg/mg 10-20 [facility] Laboratory - Hematology and Cell countsOrdered By: ED PROVIDER on 06-02-2023 Erythrocyte distribution width (RBC) [Entitic vol] 46.1 fL 35.1-43.9 [facility] Erythrocyte distribution width (RBC) [Ratio] 15.3 % 11.6-14.6 [facility] Immature granulocytes/100 WBC (Bld) 0.800 % 0.0-0.9 [facility] Comment on above: IG% - Immature Granu locytes (promyelocytes, myelocytes and metamyelocytes) > 1% indicates that a LEFT SHIFT is Present. MCH (RBC) [Entitic mass] 27.3 pg 27.0-32.0 [facility] Nucleated RBC/100 WBC (Bld) [Ratio] 0 % 0-5 [facility] MCHC Auto (RBC) [Mass/Vol]Or dered By: ED PROVIDER on 06-02-2023 MCHC (RBC) [Mass/Vol] 32.8 g/dL 32-36 [facility] No Panel InformationOrdered By: ED PROVIDER on 06-02-2023 Estimated Creatinine Clearance Calc 56.88 ml/min [facility] Estimated GFR (MDRD) Amer 86 mL/min >60 [facility] Comment on above: GFR Calc Estimated GFR (MDRD) Non-Af Amer 71 mL/min >60 [facility] Comment on above: Non- GFR Calc Platelets bldOrdered By: ED PROVIDER on 06-02-2023 Platelets (Bld) [#/Vol] 361 10*3/uL 150-450 [facility] Serum or plasma calcium esthela urement (mass/volume)Ordered By: ED PROVIDER on 06-02-2023 Calcium [Mass/Vol] 9.3 mg/dL 8.5-10.1 [facility] Serum or plasma creatinine m easurement (mass/volume)Ordered By: ED PROVIDER on 06-02-2023 Creatinine [Mass/Vol] 0.87 mg/dL 0.55-1.02 [facility] Comment on above: The validity of the calculated GFR & GFRAA in patients over 70 years has not been determined. Clinical correlation is essential. Serum or plasma urea nitroge n measurement (mass/volume)Ordered By: ED PROVIDER on 06-02-2023 Urea nitrogen [Mass/Vol] 6 mg/dL 7-18 [facility] Thin prep Papanicolaou smear with manual screeningOrdered By: ED PROVIDER on 06-02-2023 Thin prep Papanicolaou smear with manual screening 9 5-15 [facility] Ophthalmic Eye Examon 2022 Ophthalmic Eye Exam DOCUMENT REVIEWED BY : Yrn Ortega DOCUMENT SIGNED ELECTRONICALLY BY Yrn Ortega ON 12/23/2022 09:55:17 PM [id number] [place], [address] THIS DOCUMENT WAS CREATED ON: 12/22/2022 02:52:23 PM BY: MARCELLA Hutchinson performed [id number] Exam Date: Thursday, December 22, 2022 PATIENT [...] to be resolving - Dr Jurado in [facility], No Mri done recently Context/Onset-several weeks ago, Location-right eye, HISTORY OF PRESENT ILLNESS: PROBLEM: Pt sts orbital swelling seen in ED and admission and resolved with antibiotics PT sts has reoccurrance about 3 weeks ago with swelling above right eye and currently on oral prednisone 20mg and was on oral antibiotics and seems to be resolving - Dr Jurado in [facility] CONTEXT/ONSET: several weeks ago LOCATION: right [...] [Reported] ARIPiprazole TABS - Tablet, [Reported] Creon [id number] UNIT Oral Capsule Delayed Release Particles - [...] CUP TO DISC: 0.4 0.4 OPTIC DISC: [place] and sharp [place] and sharp VITREOUS: Clear Clear Impression 1 [...] without biopsy. - will inform Dr. Jurado ([facility]) [address] [place] [address], [place] [id number], phone [phone] fax [phone] - consider further imaging if there is another recurrence of swelling f/u 10 weeks Yrn Ortega DOCUMENT CREATE DATE: 12/22/2022 02:52:23 PM Received for:Yrn Ortgea MD Dec 23 2022 9:55PM Eastern Standard Time Normal [facility] XR Lumbar spine 3 Viewson IMPRESSION: Lumbar s pine degenerative changes as described above. Charge Entry: PSCB Transcribe Date/Time: Nov 26 2022 2:44P Dictated by : CHELA GAMING MD This examination was interpreted and the report reviewed and electronically signed by: CHELA GAMING MD on Nov 26 2022 2:59PM [facility] [...] spine are presented. FINDINGS: There are five mrl-wgq-yaayxhv lumbar vertebrae. No acute fracture or subluxations are noted. The disc spaces are well preserved. There is minimal osteophyte formation. Kissing spine seen on lateral view. Others: There are vascular calcifications. DIVISION OF RADIOLOGY Provider, [facility] - 11/26/2022 * * *Final Report* * [...] spine are presented. FINDINGS: There are five ved-tdh-wcyhvvs lumbar vertebrae. No acute fracture or subluxations are noted. The disc spaces are well preserved. There is minimal osteophyte formation. Kissing spine seen on lateral view. Others: There are vascular calcifications. IMPRESSION IMPRESSION: Lumbar spine degenerative changes as described above. Charge Entry: BABATUNDE Transcribe Date/Time: Nov 26 2022 2:44P Dictated by : CHELA GAMING MD This examination was interpreted and the report reviewed and electronically signed by: CHELA GAMING MD on Nov 26 2022 2:59PM EST [facility] XR Lumbar spine 3 ViewsOrder ed By: Ccf Provider on 11-26-2022 [facility] XR Lumbar spine 3 Viewson Radiology Study observation (narrative) [facility] XR CHEST 2V FRONTAL/LATon [facility] XR Chest PA and Lateralon IMPRESSION: No acute radiographic abnormality. Charge Entry: BABATUNDE Transcribe Date/Time: Nov 11 2022 10:22P [...] soft tissues: Unremarkable. DIVISION OF RADIOLOGY Provider, [facility] - 11/11/2022 * * *Final Report* [...] Unremarkable. IMPRESSION IMPRESSION: No acute radiographic abnormality. Charge Entry: PSCB Transcribe Date/Time: Nov 11 2022 10:22P Dictated by : NANETTE OGDEN MD This examination was interpreted and the report reviewed and electronically signed by: NANETTE OGDEN MD on Nov 11 2022 10:23PM EST [facility] Radiology Study observation (narrative) [facility] XR Chest PA and LateralOrder ed By: Ccf Provider on 11-11-2022 [facility] Absolute lymphocyte countOrd ered By: Dr. Bonilla on 11-07-2022 Lymphocytes Auto (Unsp spec) [#/Vol] 2.70 10*3/uL 0.83-4.51 [facility] Basophil percentageOrdered B y: Dr. Bonilla on 11-07-2022 Basophils/100 WBC (Bld) 0.4 % 0-1 [facility] Chloride [Moles/Vol] 99 mmol/L 98-107 [facility] Eosinophils/100 WBC (Bld) 4.1 % 0-5 [facility] Glucose [Mass/Vol] 90 mg/dL 74-106 [facility] Neutrophils (Bld) [#/Vol] 8.0 10*3/uL 2.0-7.7 [facility] Neutrophils/100 WBC (Bld) 59.2 % 47-70 [facility] Potassium [Moles/Vol] 3.0 mmol/L 3.5-5.1 [facility] Sodium [Moles/Vol] 141 mmol/L 136-145 [facility] WBC (Bld) [#/Vol] 13.6 10*3/uL 4.4-11.0 [facility] Blood erythrocytes count (nu mber/volume)Ordered By: Dr. Bonilla on 11-07-2022 RBC (Bld) [#/Vol] 3.28 10*6/uL 4.2-5.4 [facility] Blood hemoglobin measurement (mass/volume)Ordered By: Dr. Bonilla on 11-07-2022 Hemoglobin (Bld) [Mass/Vol] 8.8 g/dL 12.0-15.0 [facility] Blood lymphocytes/100 leukoc ytesOrdered By: Dr. Bonilla on 11-07-2022 Lymphocytes/100 WBC (Bld) 19.9 % 19-41 [facility] Blood manual differential co mment interpretation (narrative result)Ordered By: Dr. Bonilla on 11-07-2022 Manual differential comment Geovany (Bld) [Interp] SCANNED [facility] Blood monocytes/100 leukocyt esOrdered By: Dr. Bonilla on 11-07-2022 Monocytes/100 WBC (Bld) 13.8 % 0-10 [facility] Blood platelet mean volumeOr dered By: Dr. Bonilla on 11-07-2022 Platelet mean volume (Bld) [Entitic vol] 9.9 fL 6.2-12.0 [facility] Determination of erythrocyte mean corpuscular volume (MCV)Ordered By: Dr. Bonilla on 11-07-2022 MCV (RBC) [Entitic vol] 83.5 fL 81-99 [facility] Hematocrit Auto (Bld) [Volum e fraction]Ordered By: Dr. Bonilla on 11-07-2022 Hematocrit (Bld) [Volume fraction] 27.4 % 37-47 [facility] Laboratory - Chemistry and C hemistry - challengeOrdered By: Dr. Bonilla on 11-07-2022 CO2 [Moles/Vol] 36.0 mmol/L 21.0-32.0 [facility] Urea nitrogen/Creatinine [Mass ratio] 15.6 mg/mg 10-20 [facility] Laboratory - Hematology and Cell countsOrdered By: Dr. Bonilla on 11-07-2022 Erythrocyte distribution width (RBC) [Entitic vol] 45.4 fL 35.1-43.9 [facility] Erythrocyte distribution width (RBC) [Ratio] 14.8 % 11.6-14.6 [facility] Immature granulocytes/100 WBC (Bld) 2.600 % 0.0-0.9 [facility] Comment on above: IG% - Immature Granu locytes (promyelocytes, myelocytes and metamyelocytes) > 1% indicates that a LEFT SHIFT is Present. MCH (RBC) [Entitic mass] 26.8 pg 27.0-32.0 [facility] Nucleated RBC/100 WBC (Bld) [Ratio] 0 % 0-5 [facility] MCHC Auto (RBC) [Mass/Vol]Or dered By: Dr. Bonilla on 11-07-2022 MCHC (RBC) [Mass/Vol] 32.1 g/dL 32-36 [facility] No Panel InformationOrdered By: Dr. Bonilla on 11-07-2022 Estimated Creatinine Clearance Calc 52.20 ml/min [facility] Estimated GFR (MDRD) Amer 76 mL/min >60 [facility] Comment on above: GFR Calc Estimated GFR (MDRD) Non-Af Amer 63 mL/min >60 [facility] Comment on above: Non- GFR Calc Platelets bldOrdered By: Dr. Bonilla on 11-07-2022 Platelets (Bld) [#/Vol] 395 10*3/uL 150-450 [facility] Review by pathologistOrdered By: Dr. Bonilla on 11-07-2022 Pathologist review Geovany (Unsp spec) [Interp] Reviewed [facility] Comment on above: Previous reported re sult: Tiesha gotti Edited by: RGOOD on 11/07/22:1323Leukocytosis with Neutrophilic left shift. Normocytic anemia.Clinical correlation necessary.Javier Best M.D. 11/07/22 AMENDED REPORT 11/07/22 1323 PATH REV previously reported as: Tiesha gotti Serum or plasma calcium esthela urement (mass/volume)Ordered By: Dr. Bonilla on 11-07-2022 Calcium [Mass/Vol] 8.4 mg/dL 8.5-10.1 [facility] Serum or plasma creatinine m easurement (mass/volume)Ordered By: Dr. Bonilla on 11-07-2022 Creatinine [Mass/Vol] 0.96 mg/dL 0.55-1.02 [facility] Comment on above: The validity of the calculated GFR & GFRAA in patients over 70 years has not been determined. Clinical correlation is essential. Serum or plasma urea nitroge n measurement (mass/volume)Ordered By: Dr. Bonilla on 11-07-2022 Urea nitrogen [Mass/Vol] 15 mg/dL 7-18 [facility] Thin prep Papanicolaou smear with manual screeningOrdered By: Dr. Bonilla on 11-07-2022 Thin prep Papanicolaou smear with manual screening 6 5-15 [facility] Laboratory - Hematology and Cell countsOrdered By: Dr. Bonilla on 11-06-2022 Anisocytosis Ql (Bld) 1+ [facility] Assessment of wrist artery p atency prior to arterial punctureOrdered By: Dr. Bonilla on 11-05-2022 Arterial patency Wrist artery --pre arterial puncture N/A [facility] Base excessOrdered By: Dr. Melchor camargo on 11-05-2022 Base excess Calc (BldV) [Moles/Vol] -10 mmol/L -2-2 [facility] Basophil percentageOrdered B y: Dr. Bonilla on 11-05-2022 Basophil percentage 17.6 mmol/L 22-26 [facility] Basophils/100 WBC (Bld) 97 % 95-99 [facility] CO2 (BldA) [Partial pressure ]Ordered By: Dr. Bonilla on 11-05-2022 CO2 (Bld) [Partial pressure] 44.1 mm[Hg] 35-45 [facility] Laboratory - Chemistry and C hemistry - challengeOrdered By: Dr. Sebastian on 11-05-2022 Lipase [Catalytic activity/Vol] 112 U/L 73-393 [facility] Laboratory - CoagulationOrde red By: Dr. Bonilla on 11-05-2022 aPTT Coag (Bld) [Time] 68.4 s 24.1-36.2 [facility] No Panel InformationOrdered By: Dr. Bonilla on 11-05-2022 Bld Gas Crit Called To/Read Back By Yes [facility] Blood Gas Liter Flow 3.0 /min [facility] Blood Gas Notified Whom Dr Sebastian [facility] Blood Gas Sample Site L Radial [facility] Blood Gas Specimen Type ART [facility] Blood Gas Total CO2 19 mmol/L [facility] Oxygen Delivery Device Cannula [facility] Oxygen (BldA) [Partial press ure]Ordered By: Dr. Bonilla on 11-05-2022 Oxygen (Bld) [Partial pressure] 107 mmHG 75-100 [facility] Serum or plasma vancomycin m easurement (mass/volume)Ordered By: Dr. Bonilla on 11-05-2022 Vancomycin [Mass/Vol] 18.2 ug/mL 0.0-15.0 [facility] Comment on above: VANCOMYCIN STANDARD DRUG THERAPY: CRITICAL VALUE IS > 15.0 mg/L VANCOMYCIN HIGH INTENSITY THERAPY: CRITICAL VALUE IS > 20.0 mg/L PLEASE CONTACT PHARMACY SERVICES (#5079) FOR INTERPRETATIONOF RESULTS. THIS RESULT DOES NOT REPRESENT A PEAK OR TROUGHLEVEL FOR THIS DRUG. pH measurementOrdered By: Dr Max Bonilla on 11-05-2022 pH (Unsp spec) 7.21 [pH] 7.35-7.45 [facility] Basophil percentageOrdered B y: Dr. Iverson on 11-04-2022 Basophil percentage 0-5 SEEN /hpf 0-5 [facility] Basophil percentageOrdered B y: Dr. Bonilla on 11-04-2022 Lactate [Moles/Vol] 1.4 mmol/L 0.4-2.0 [facility] Bilirubin Test strip Ql (U)O rdered By: Dr. Iverson on 11-04-2022 Bilirubin Ql (U) Negative Negative [facility] INR in Blood by Coagulation assayOrdered By: Dr. Bonilla on 11-04-2022 INR Coag (Bld) [Relative time] 1.2 {INR} [facility] Ketones Test strip Ql (U)Ord ered By: Dr. Iverson on 11-04-2022 Ketones Ql (U) Negative Negative [facility] Laboratory - CoagulationOrde red By: Dr. Bonilla on 11-04-2022 PT Coag (PPP) [Time] 14.6 s 11.7-14.9 [facility] Mucus LM Ql (Urine sed)Order ed By: Dr. Iverson on 11-04-2022 Mucus Ql (Urine sed) 0 SEEN /hpf [facility] Nitrite Test strip Ql (U)Ord ered By: Dr. Iverson on 11-04-2022 Nitrite Ql (U) Negative Negative [facility] No Panel InformationOrdered By: Dr. Bonilla on 11-04-2022 Blood Gas Oxygen Percent 30 [facility] Blood Gas Respiration Rate 12 [facility] Urine Urea Nitrogen 302 mg/dL NO RANGE EST. [facility] Protein Test strip Ql (U)Ord ered By: Dr. Iverson on 11-04-2022 Protein Ql (U) 30 mg/dl Negative [facility] Squamous epithelial cells de tection in urine sediment by light microscopyOrdered By: Dr. Iverson on 11-04-2022 Epithelial cells.squamous LM Ql (Urine sed) 0 SEEN /hpf 5-10 [facility] Urine blood detectionOrdered By: Dr. Iverson on 11-04-2022 RBC Ql (U) 150 /ul Negative [facility] RBC Ql (U) 10-25 SEEN /hpf 0-5 [facility] Urine clarityOrdered By: Dr. Iverson on 11-04-2022 Clarity (U) Clear Clear [facility] Urine color determinationOrd ered By: Dr. Iverson on 11-04-2022 Color (U) Yellow Yellow [facility] Urine creatinine measurement (mass/volume)Ordered By: Dr. Bonilla on 11-04-2022 Creatinine (U) [Mass/Vol] 33.40 mg/dL NO RANGE EST. [facility] Urine glucose detectionOrder ed By: Dr. Iverson on 11-04-2022 Glucose Ql (U) 50 mg/dl Normal [facility] Urine leukocyte esterase det ection by dipstickOrdered By: Dr. Iverson on 11-04-2022 Leukocyte esterase Test strip Ql (U) Negative Negative [facility] Urine pHOrdered By: Dr. Feng sanders on 11-04-2022 pH (U) 6.0 [pH] 5.0 - 8.0 [facility] Urine sediment bacteria coun t by microscopy (number/high power field)Ordered By: Dr. Iverson on 11-04-2022 Bacteria LM.HPF (Urine sed) [#/Area] RARE /hpf None Seen [facility] Urine specific gravity measu rementOrdered By: Dr. Iverson on 11-04-2022 Specific gravity (U) [Rel density] 1.015 1.002-1.030 [facility] Urobilinogen Auto test strip Ql (U)Ordered By: Dr. Iverson on 11-04-2022 Urobilinogen Ql (U) Normal mg/dl Normal [facility] Basophil percentageOrdered B y: Dr. Ross on 11-03-2022 Bilirubin [Mass/Vol] 0.20 mg/dL 0.20-1.00 [facility] Comment on above: For patients on eltr ombopag therapy, use of Dimension Straughn TBIL is not recommended. Protein [Mass/Vol] 5.7 g/dL 6.4-8.2 [facility] Laboratory - Chemistry and C hemistry - challengeOrdered By: Dr. Ross on 11-03-2022 ALP [Catalytic activity/Vol] 97 U/L 45-117 [facility] ALT [Catalytic activity/Vol] 31 U/L 13-56 [facility] Globulin (S) [Mass/Vol] 3.5 g/dL 2.2-4.2 [facility] Laboratory - Microbiology an d Antimicrobial susceptibilityOrdered By: Dr. Ross on 11-03-2022 Respiratory pathogens DNA and RNA 12b panel KANDY+probe (Unsp spec) [facility] Serum or plasma albumin esthela urement (mass/volume)Ordered By: Dr. Ross on 11-03-2022 Albumin [Mass/Vol] 2.2 g/dL 3.2-5.0 [facility] Serum or plasma albumin/glob ulin mass ratioOrdered By: Dr. Ross on 11-03-2022 Albumin/Globulin [Mass ratio] 0.6 {ratio} 0.9-2.4 [facility] Thin prep Papanicolaou smear with manual screeningOrdered By: Dr. Ross on 11-03-2022 Thin prep Papanicolaou smear with manual screening 36 U/L 15-37 [facility] No Panel InformationOrdered By: Dr. Ochoa on 11-02-2022 Bedside Blood Gas PEEP 8 [facility] Stool Calprotectin 118 ug/g 0-120 [facility] Comment on above: Concentration Interp retation Follow-Up<16 - 50 ug/g Normal None>50 -120 ug/g Borderline Re-evaluate in 4-6 weeks >120 ug/g Abnormal Repeat as clinically indicated No Panel InformationOrdered By: Dr. Fatima on 11-02-2022 Troponin I High Sensitivity 92 pg/mL 3.0-54.0 [facility] Comment on above: Please Note: [place] t Units and Gender Specific Reference Ranges. For more information see Policy Stat Procedure Straughn High Sensitivity Troponin (TNIH) and attachments. Stool pHOrdered By: Dr. Pj smallwood on 11-02-2022 pH (Stl) 6.0 7.0-7.5 [facility] Comment on above: Performed at: [employer] [address] [id number] Director: Marvin Quintanilla MD, Phone: [phone] at: [employer] [address] [id number] Director: Tj Mendoza PhD, Phone: [phone] Chart Updateon 11-01-2022 Chart Update Chart Update Received page to [facility] clinic pager that Pt is calling for internal medicine. Reviewed chart and noted pt was not a [facility] clinic patient but had recently been D/C from [facility]. Attempted to call phone answering service but was unable to connect with the thermocouple tester who processed the call for more information. Called pt and informed her that I was a resident with the [facility] clinic and her message was likely sent to me in error, she was concerned that she had not been urinating much recently despite drinking a significant amount of water (estimated 12 12 oz bottles since last night). She further stated she had called her PCP office today regarding this issue and reached an on-call [facility] [employer] OPERATOR who recommended she present to the ED [...] EST (Author) [facility] Telephone Encounteron 2022 [employer] Authentication Interface Message Text Situation: Patient states she was prescribed medication by and medication making her mouth dry (Patient not established with PCP at this time) Background: see above Assessment: Advised patient to reached out to prescribing provider- Recommendation: Verbalized understanding-Provided number to Normal [facility] ANCA-ASSOCIATED VASCULITIS P ROFILE [ANCA,MPO,PR3]on 10-30-2022 ANCA IFA PATTERN Not detected Normal None Detected [facility] Comment on above: Result Comment: INTE RPRETIVE INFORMATION: ANCA IFA Pattern Neutrophil Cytoplasmic Antibodies (C-ANCA = granular cytoplasmic staining, P-ANCA = perinuclear staining) are found in the serum of over 90 percent of patients with certain necrotizing systemic vasculitides, and usually in less than 5 percent of patients with collagen vascular disease or arthritis. Performed By: [facility] [address] [place] [address] Documentation Billing Clerk: Kyle Hyatt MD, PhD Performed By: #### A NCMP #### [address] [address] [place] [address] ANCA IFA TITER <1:20 Normal <1:20 [facility] Comment on above: Performed By: #### A NC #### [address] [address] [place] [address] MYELOPEROXIDASE AB 0 AU/mL Normal 0-19 [facility] Comment on above: Result Comment: INTE RPRETIVE INFORMATION: Myeloperoxidase Abs, IgG 19 AU/mL or Less ......... Negative 20-25 AU/mL .............. Equivocal 26 AU/mL or Greater ...... Positive Approximately 90% of patients with a P-ANCA pattern by IFA have antibodies specific for MPO. Performed By: #### A NCMP #### [address] [address] [place] [address] PROTEINASE-3 0 AU/mL Normal 0-19 [facility] Comment on above: Result Comment: INTE RPRETIVE INFORMATION: Serine Proteinase 3, IgG 19 AU/mL or Less ........ Negative 20-25 AU/mL ............. Equivocal 26 AU/mL or Greater ..... Positive Approximately 85% of patients with a C-ANCA pattern by IFA have antibodies specific for PR3. Performed By: #### A [facility] #### [facility] [address] [place] [address] Clinical Event Note-Ophthalm ology follow upon 10-29-2022 [...] Updated: 30-Oct-2022 12:22 by Yrn Ortega) Normal [facility] LYSOZYMEon 10-29-2022 LYSOZYME 9.0 ug/mL Normal 2.5-12.9 [facility] Comment on above: Result Comment: Ef fective [...] 4.2 - 9.5 Performed By: #### C #### [facility] [address] [place] [address] RENAL FUNCTION PANELon 10-29 Albumin [Mass/Vol] 3.8 g/dL Normal 3.4 - 5.0 [facility] Comment on above: Performed By: #### R ENAL #### [facility] [address] [place] [address] Anion gap [Moles/Vol] 15 mmol/L Normal 10 - 20 [facility] Comment on above: Performed By: #### R ENAL #### [facility] [address] [place] [address] Calcium [Mass/Vol] 9.5 mg/dL Normal 8.6 - 10.6 [facility] Comment on above: Performed By: #### R ENAL #### [facility] [address] [place] [address] Chloride [Moles/Vol] 100 mmol/L Normal 98 - 107 [facility] Comment on above: Performed By: #### R ENAL #### [facility] [address] [place] [address] Creatinine [Mass/Vol] 1.40 mg/dL High 0.50 - 1.05 [facility] Comment on above: Performed By: #### R ENAL #### [facility] [address] [place] [address] GFR/1.73 sq M.predicted among non-blacks MDRD (S/P/Bld) [Vol rate/Area] 43 mL/min/{1.73_m2} Abnormal >90 [facility] Comment on above: Result Comment: CALC ULATIONS OF ESTIMATED GFR ARE PERFORMED USING THE 2020 CKD-EPI STUDY REFIT EQUATION WITHOUT THE RACE VARIABLE FOR THE IDMS-TRACEABLE CREATININE METHODS. https://jasn.asnjournals.org/content//ASN.42559 74849 Performed By: #### R ENAL #### [facility] [address] [place] [address] Glucose [Mass/Vol] 109 mg/dL High 74 - 99 [facility] Comment on above: Performed By: #### R ENAL #### [facility] [address] [place] [address] HCO3 (Bld) [Moles/Vol] 23 mmol/L Normal 21 - 32 [facility] Comment on above: Performed By: #### R ENAL #### [facility] [address] [place] [address] Phosphate [Mass/Vol] 4.4 mg/dL Normal 2.5 - 4.9 [facility] Comment on above: Result Comment: The performance characteristics of phosphorus testing in heparinized plasma have been validated by the individual laboratory site where testing is performed. Testing on heparinized plasma is not approved by the FDA; however, such approval is not necessary. Performed By: #### R ENAL #### [facility] [address] [place] [address] Potassium [Moles/Vol] 3.4 mmol/L Low 3.5 - 5.3 [facility] Comment on above: Performed By: #### R ENAL #### [facility] [address] [place] [address] Sodium [Moles/Vol] 135 mmol/L Low 136 - 145 [facility] Comment on above: Performed By: #### R ENAL #### [facility] [address] [place] [address] Urea nitrogen [Mass/Vol] 11 mg/dL Normal 6 - 23 [facility] Comment on above: Performed By: #### R ENAL #### [facility] [address] [place] [address] Renal Function Panelon 10-29 Albumin BCP dye [Mass/Vol] 3.8 g/dL 3.4 - 5.0 [facility] Work Phone: Anion gap [Moles/Vol] 15 mmol/L 10 - 20 [facility] Work Phone: Calcium [Mass/Vol] 9.5 mg/dL 8.6 - 10.6 [facility] Work Phone: Chloride [Moles/Vol] 100 mmol/L 98 - 107 [facility] Work Phone: [phone] CO2 [Moles/Vol] 23 mmol/L 21 - 32 [facility] Work Phone: [phone] Creatinine [Mass/Vol] 1.40 mg/dL above high threshold See Below [facility] Work Phone: Comment on above: Reference Range: 0.5 0 - 1.05 Glucose [Mass/Vol] 109 mg/dL above high threshold 74 - 99 [facility] Work Phone: [phone] Phosphate [Mass/Vol] 4.4 mg/dL 2.5 - 4.9 [facility] Work Phone: 1)04-08 46 Comment on above: The performance bruce acteristics of phosphorus testing in heparinized plasma have been validated by the individual laboratory site where testing is performed. Testing on heparinized plasma is not approved by the FDA; however, such approval is not necessary. Potassium [Moles/Vol] 3.4 mmol/L below low threshold 3.5 - 5.3 [facility] Work Phone: [phone] Sodium [Moles/Vol] 135 mmol/L below low threshold 136 - 145 [facility] Work Phone: [phone] Urea nitrogen [Mass/Vol] 11 mg/dL 6 - 23 [facility] Work Phone: [phone] Renal Function Panel 43 {mL/min/1.73m2} Abnormal >90 [facility] Work Phone: [phone] Comment on above: CALCULATIONS OF PAVAN MATED GFR ARE PERFORMED USING THE 2020 CKD-EPI STUDY REFIT EQUATION WITHOUT THE RACE VARIABLE FOR THE IDMS-TRACEABLE CREATININE METHODS.https://jasn.asnjournals.org/content//A SN.4079258487 BLOOD CULTURE, BACTERIALon 0 10-28-2022 BLOOD CULTURE, BACTERIAL PATIENT: GRACIE BANUELOS LOCATION: [place] [address] BILL#: [id number] : 61 AGE: SEX: F ORDERED BY: JUSTYN RICHTER SOURCE: Blood COLLECTED: 10/28/22 12:04 ANTIBIOTICS AT DEB.: RECEIVED : 10/28/22 16:14 SITE: PERIPHERAL R E S U L T S BLOOD CULTURE, BACTERIAL FINAL 11/01/22 17:42 No Growth at 1 days No Growth at 2 days No Growth at 3 days NO GROWTH at 4 days - FINAL REPORT Normal [facility] Comment on above: Performed By: #### B LDC #### [facility] [address] [place] [address] BLOOD CULTURE, BACTERIAL PATIENT: GRACIE BANUELOS LOCATION: [place] [address] BILL#: [id number] : 61 AGE: SEX: F ORDERED BY: JUSTYN RICHTER SOURCE: Blood COLLECTED: 10/28/22 12:04 ANTIBIOTICS AT DEB.: RECEIVED : 10/28/22 16:14 SITE: PERIPHERAL R E S U L T S BLOOD CULTURE, BACTERIAL FINAL 11/01/22 17:42 No Growth at 1 days No Growth at 2 days No Growth at 3 days NO GROWTH at 4 days - FINAL REPORT Normal [facility] Comment on above: Performed By: #### C MP #### [facility] [address] [place] [address] CBC AND DIFFERENTIALon 10-28 % AUTOMATED IMMATURE GRAN 0.9 % Normal 0.0 - 0.9 [facility] Comment on above: Result Comment: Iram ture Granulocyte Count (IG) includes promyelocytes, myelocytes and metamyelocytes but does not include bands. Percent differential counts (%) should be interpreted in the context of the absolute cell counts (cells/L). Performed By: #### C BCDF #### [facility] [address] [place] [address] Basophils (Bld) [#/Vol] 0.04 10*3/uL Normal 0.00 - 0.10 [facility] Comment on above: Performed By: #### C BCDF #### [facility] [address] [place] [address] Basophils/100 WBC (Bld) 0.5 % Normal 0.0 - 2.0 [facility] Comment on above: Performed By: #### C BCDF #### [facility] [address] [place] [address] Eosinophils (Bld) [#/Vol] 0.45 10*3/uL Normal 0.00 - 0.70 [facility] Comment on above: Performed By: #### C BCDF #### [facility] [address] [place] [address] Eosinophils/100 WBC (Bld) 5.5 % Normal 0.0 - 6.0 [facility] Comment on above: Performed By: #### C BCDF #### [facility] [address] [place] [address] Erythrocyte distribution width (RBC) [Ratio] 13.5 % Normal 11.5 - 14.5 [facility] Comment on above: Performed By: #### C BCDF #### [facility] [address] [place] [address] Hematocrit (Bld) [Volume fraction] 35.2 % Low 36.0 - 46.0 [facility] Comment on above: Performed By: #### C BCDF #### [facility] [address] [place] [address] Hemoglobin (Bld) [Mass/Vol] 11.2 g/dL Low 12.0 - 16.0 [facility] Comment on above: Performed By: #### C BCDF #### [facility] [address] [place] [address] Lymphocytes (Bld) [#/Vol] 0.72 10*3/uL Low 1.20 - 4.80 [facility] Comment on above: Performed By: #### C BCDF #### [facility] [address] [place] [address] Lymphocytes/100 WBC (Bld) 8.7 % Normal 13.0 - 44.0 [facility] Comment on above: Performed By: #### C BCDF #### [facility] [address] [place] [address] MCHC (RBC) [Mass/Vol] 31.8 g/dL Low 32.0 - 36.0 [facility] Comment on above: Performed By: #### C BCDF #### [facility] [address] [place] [address] MCV (RBC) [Entitic vol] 85 fL Normal 80 - 100 [facility] Comment on above: Performed By: #### C BCDF #### [facility] [address] [place] [address] Monocytes (Bld) [#/Vol] 0.72 10*3/uL Normal 0.10 - 1.00 [facility] Comment on above: Performed By: #### C BCDF #### [facility] [address] [place] [address] Monocytes/100 WBC (Bld) 8.7 % Normal 2.0 - 10.0 [facility] Comment on above: Performed By: #### C BCDF #### [facility] [address] [place] [address] Neutrophils (Bld) [#/Vol] 6.23 10*3/uL Normal 1.20 - 7.70 [facility] Comment on above: Performed By: #### C BCDF #### [facility] [address] [place] [address] Neutrophils/100 WBC (Bld) 75.7 % Normal 40.0 - 80.0 [facility] Comment on above: Performed By: #### C BCDF #### [facility] [address] [place] [address] NUCLEATED RBC 0.0 /100 WBC Normal 0.0-0.0 [facility] Comment on above: Performed By: #### C BCDF #### [facility] [address] [place] [address] Platelets (Bld) [#/Vol] 233 10*3/uL Normal 150 - 450 [facility] Comment on above: Performed By: #### C BCDF #### [facility] [address] [place] [address] RBC 4.15 x10E12/L Normal 4.00 - 5.20 [facility] Comment on above: Performed By: #### C BCDF #### [facility] [address] [place] [address] WBC (Bld) [#/Vol] 8.2 10*3/uL Normal 4.4 - 11.3 [facility] Comment on above: Performed By: #### C BCDF #### [facility] [address] [place] [address] % AUTOMATED IMMATURE GRAN Canceled Normal [facility] Comment on above: Order Comment: TEST CBC AND DIFFERENTIAL WAS CANCELLED, 10/28/2022 16:16 Result Comment: Iram ture Granulocyte Count (IG) includes promyelocytes, myelocytes and metamyelocytes but does not include bands. Percent differential counts (%) should be interpreted in the context of the absolute cell counts (cells/L). Performed By: #### V ANCU #### [facility] [address] [place] [address] % BASOPHIL Canceled Normal [facility] Comment on above: Order Comment: TEST CBC AND DIFFERENTIAL WAS CANCELLED, 10/28/2022 16:16 Performed By: #### V ANCU #### [facility] [address] [place] [address] % EOSINOPHIL Canceled Normal [facility] Comment on above: Order Comment: TEST CBC AND DIFFERENTIAL WAS CANCELLED, 10/28/2022 16:16 Performed By: #### V ANCU #### [facility] [address] [place] [address] % LYMPHOCYTE Canceled Normal [facility] Comment on above: Order Comment: TEST CBC AND DIFFERENTIAL WAS CANCELLED, 10/28/2022 16:16 Performed By: #### V ANCU #### [facility] [address] [place] [address] % MONOCYTE Canceled Normal [facility] Comment on above: Order Comment: TEST CBC AND DIFFERENTIAL WAS CANCELLED, 10/28/2022 16:16 Performed By: #### V ANCU #### [facility] [address] [place] [address] % NEUTROPHIL Canceled Normal [facility] Comment on above: Order Comment: TEST CBC AND DIFFERENTIAL WAS CANCELLED, 10/28/2022 16:16 Performed By: #### V ANCU #### [facility] [address] [place] [address] BASOPHIL Canceled Normal [facility] Comment on above: Order Comment: TEST CBC AND DIFFERENTIAL WAS CANCELLED, 10/28/2022 16:16 Performed By: #### V ANCU #### [facility] [address] [place] [id number] DIFFERENTIAL Canceled Normal [facility] Comment on above: Order Comment: TEST CBC AND DIFFERENTIAL WAS CANCELLED, 10/28/2022 16:16 Performed By: #### V ANCU #### [facility] [address] [place] [address] EOSINOPHIL Canceled Normal [facility] Comment on above: Order Comment: TEST CBC AND DIFFERENTIAL WAS CANCELLED, 10/28/2022 16:16 Performed By: #### V ANCU #### [facility] [address] [place] [id number] HCT Canceled Normal [facility] Comment on above: Order Comment: TEST CBC AND DIFFERENTIAL WAS CANCELLED, 10/28/2022 16:16 Performed By: #### V ANCU #### [facility] [address] [place] [id number] HGB Canceled Normal [facility] Comment on above: Order Comment: TEST CBC AND DIFFERENTIAL WAS CANCELLED, 10/28/2022 16:16 Performed By: #### V ANCU #### [facility] [address] [place] [address] LYMPHOCYTE Canceled Normal [facility] Comment on above: Order Comment: TEST CBC AND DIFFERENTIAL WAS CANCELLED, 10/28/2022 16:16 Performed By: #### V ANCU #### [facility] [address] [place] [address] MCHC Canceled Normal [facility] Comment on above: Order Comment: TEST CBC AND DIFFERENTIAL WAS CANCELLED, 10/28/2022 16:16 Performed By: #### V ANCU #### [facility] [address] [place] [address] MCV Canceled Normal [facility] Comment on above: Order Comment: TEST CBC AND DIFFERENTIAL WAS CANCELLED, 10/28/2022 16:16 Performed By: #### V ANCU #### [facility] [address] [place] [address] MONOCYTE Canceled Normal [facility] Comment on above: Order Comment: TEST CBC AND DIFFERENTIAL WAS CANCELLED, 10/28/2022 16:16 Performed By: #### V ANCU #### [facility] [address] [place] [address] NEUTROPHIL Canceled Normal [facility] Comment on above: Order Comment: TEST CBC AND DIFFERENTIAL WAS CANCELLED, 10/28/2022 16:16 Performed By: #### V ANCU #### [facility] [address] [place] [address] NUCLEATED RBC Canceled Normal [facility] Comment on above: Order Comment: TEST CBC AND DIFFERENTIAL WAS CANCELLED, 10/28/2022 16:16 Performed By: #### V ANCU #### [facility] [address] [place] [address] PLT Canceled Normal [facility] Comment on above: Order Comment: TEST CBC AND DIFFERENTIAL WAS CANCELLED, 10/28/2022 16:16 Performed By: #### V ANCU #### [facility] [address] [place] [address] RBC Canceled Normal [facility] Comment on above: Order Comment: TEST CBC AND DIFFERENTIAL WAS CANCELLED, 10/28/2022 16:16 Performed By: #### V ANCU #### [facility] [address] [place] [address] RDW-CV Canceled Normal [facility] Comment on above: Order Comment: TEST CBC AND DIFFERENTIAL WAS CANCELLED, 10/28/2022 16:16 Performed By: #### V ANCU #### [facility] [address] [place] [address] WBC Canceled Normal [facility] Comment on above: Order Comment: TEST CBC AND DIFFERENTIAL WAS CANCELLED, 10/28/2022 16:16 Performed By: #### V ANCU #### [facility] [address] [place] [address] Clinical Note - Pharmacy v2o n 10-28-2022 Clinical Note - Pharmacy v2 Clinical Note - Pharmacy v2: Discharge Meds: Prescription Group Work Program Director Medications Home Medications Review Status for Reconciliation: Complete Med Status: Patient Currently Takes Medications Drug Name: oxyCODONE 5 mg oral tablet Instructions: 1 tab(s) orally every 6 hours, As Needed -Pain - Severe (7-10) - G89.1 .ADOD - .10/28 Meds to Beds - . Patient Location [address] Drug Name: Bactrim DS 800 mg-160 mg oral tablet Instructions: 1 tab(s) orally 2 times a day STOP DATE 11/04/22 -.ADOD - .10/28 Meds to Beds .Patient Location [address] Drug Name: hydrOXYzine hydrochloride 25 mg oral tablet Instructions: 1 tab(s) orally every 6 hours, As needed, ITCHING -.ADOD - .10/28 Meds to Beds .Patient Location [address] Drug Name: loperamide 2 mg oral capsule Instructions: 1 cap(s) orally every 4 hours, As needed, Diarrhea -.ADOD - .10/28 Meds to Beds .Patient Location [address] Medications Deliveredsee above Medications Delivered Topatient; nurse Delivery Date/[id number] 11:43 Controlled Medications Given ToElizabeth Shanae Medications [...] 07:56 by Aris Pugh ([facility]) Normal [facility] Complete Blood Count + Diffe rentialon 10-28-2022 Basophils/100 WBC (Bld) 0.5 % 0.0 - 2.0 Jerod Giang Work Phone: Erythrocyte distribution width (RBC) [Ratio] 13.5 % See Below Jerod Giang Work Phone: Comment on above: Reference Range: 11. 5 - 14.5 Hematocrit (Bld) [Volume fraction] 35.2 % below low threshold See Below Jerod Giang Work Phone: Comment on above: Reference Range: 36. 0 - 46.0 Hemoglobin (Bld) [Mass/Vol] 11.2 g/dL below low threshold See Below Jerod Giang Work Phone: [phone] Comment on above: Reference Range: 12. 0 - 16.0 Lymphocytes/100 WBC (Bld) 8.7 % See Below Jerod Giang Work Phone: Comment on above: Reference Range: 13. 0 - 44.0 MCHC (RBC) [Mass/Vol] 31.8 g/dL below low threshold See Below Jerod Giang Work Phone: Comment on above: Reference Range: 32. 0 - 36.0 MCV (RBC) [Entitic vol] 85 fL 80 - 100 Jerod Giang Work Phone: [phone] Monocytes/100 WBC (Bld) 8.7 % 2.0 - 10.0 Jerod Giang Work Phone: [phone] Neutrophils/100 WBC (Bld) 75.7 % See Below Jerod Giang Work Phone: Comment on above: Reference Range: 40. 0 - 80.0 Platelets (Bld) [#/Vol] 233 10*3/uL 150 - 450 Jerod Giang Work Phone: [phone] RBC (Bld) [#/Vol] 4.15 {x10E12/L} See Below MG Nathalie Giang Work Phone: Comment on above: Reference Range: 4.0 0 - 5.20 WBC (Bld) [#/Vol] 8.2 10*3/uL 4.4 - 11.3 [facility] rigoberto Giang Work Phone: Complete Blood Count + Differential 0.04 {x10E9/L} See Below -Ulices Giang Work Phone: [...] Count + Differential 6.23 {x10E9/L} See Below -Ulices Giang Work Phone: Comment on above: Reference Range: 1.2 0 - 7.70 Complete Blood Count + Differential 5.5 % 0.0 - 6.0 -Ulices Giang Work Phone: Complete Blood Count + Differential 0.9 % 0.0 - 0.9 -Ulices Giang Work [...] Note-Infectious Disease Service: Infectious Disease Subjective Data: BANUELOS, GRACIE is a 57 year old Female who is Hospital Day # 6. Additional Information: Pt preparing for d/c this AM when she developed acute onset whole body rash, non-pruritic, and then shortly after felt unwell w/ N/V, diarrheal incontinence, and fever. Has some residual nausea but otherwise feeling ok. No SOB, no lip/tongue swelling, no mucosal sloughing. Objective Data: Objective Information: T PRBPMAPSpO2 [id number]/8292% Date/Time10/28 13: 13: 13: 13: 13:07 Range(36.1C [...] Cl- BUN / 139 104 10 / -------- Glucose --- 85 K+ HCO3- Creat \ 3.9 26 [...] OSH. First full day of therapy at [facility] was on 10/21. MRSA swab collected here today. Would continue to treat w/ PO amox-clav once ready for d/c. If MRSA swab is p (more content not included)... Normal [facility] Daily Progress Note-Ophthalm ologyon 10-28-2022 Daily Progress Note-Ophthalmology Service: Ophthalmology Subjective Data: GRACIE BANUELOS is a 57 year old Female who is Hospital Day # 6. Objective Data: Objective Information: T PRBPMAPSpO2 [id number]% Date/Time10/28 11: 11: 11: 11: 11:31 Range(36.1C - 39C ) (75 - 109 ) (16 - 19 ) (100 - 149 )/ (68 - 86 ) (91% - 97% ) Highest temp of 39 C was recorded at 10/28 11: Pain reported at 10/28 7:58: 5 = Moderate Recent Lab Results: Results: RFP: 10/28/2022 06:24 NA+ Cl- BUN / 139 104 10 / -------- Glucose --- 85 K+ HCO3- Creat \ 3.9 26 [...] progressed. On 10/19/22 she presented to the [facility] and CT orbits showed findings concerning for right orbital cellulitis. WBC was reportedly 13.9, ESR 75, and CRP 42.6. She was prescribed clindamycin to take at home, but her pain only worsened and she presented to [facility] on 10/20/22 for further management. MRI orbits [...] CT Orbit Sella Inner, by report from [employer] shows: 1. Marked abnormality of the soft [...] which I personally reviewed, by report from [employer] shows Abnormal infiltration throughout the right retroantral and extraconal fat as well as the pterygopalatine fossa and diffusely throughout the right fruit buyer space with asymmetry of the muscles of mastication. Additional mild enlargement of the right inferior and lateral rectus. These fi (more content not included)... Normal [facility] HEPATIC FUNCTION PANELon Albumin [Mass/Vol] 3.5 g/dL Normal 3.4 - 5.0 [facility] Comment on above: Performed By: #### C MP #### [facility] [address] [place] [address] ALP [Catalytic activity/Vol] 90 U/L Normal 33 - 110 [facility] Comment on above: Performed By: #### C MP #### [facility] [address] [place] [address] ALT [Catalytic activity/Vol] 23 U/L Normal 7 - 45 [facility] Comment on above: Result Comment: Gretta ents treated with Sulfasalazine may generate falsely decreased results for ALT. Performed By: #### C MP #### [facility] [address] [place] [address] AST [Catalytic activity/Vol] 23 U/L Normal 9 - 39 [facility] Comment on above: Performed By: #### C MP #### [facility] [address] [place] [address] Bilirubin [Mass/Vol] 0.2 mg/dL Normal 0.0 - 1.2 [facility] Comment on above: Performed By: #### C MP #### [facility] [address] [place] [address] Bilirubin.indirect [Mass/Vol] 0.1 mg/dL Normal 0.0 - 0.3 [facility] Comment on above: Performed By: #### C MP #### [facility] [address] [place] [address] Protein [Mass/Vol] 6.3 g/dL Low 6.4 - 8.2 [facility] Comment on above: Performed By: #### C MP #### [facility] [address] [place] [address] Hepatic Function Panelon Albumin BCP dye [Mass/Vol] 3.5 g/dL 3.4 - 5.0 [facility] Wilfridjodi Giang Work Phone: ALP [Catalytic activity/Vol] 90 U/L 33 - 110 [facility] Wilfrid Giang Work Phone: ALT With P-5'-P [Catalytic activity/Vol] 23 U/L 7 - 45 [facility] Work Phone: Comment on above: Patients treated wit h Sulfasalazine may generate falsely decreased results for ALT. AST With P-5'-P [Catalytic activity/Vol] 23 U/L 9 - 39 [facility] Work Phone: Bilirubin [Mass/Vol] 0.2 mg/dL 0.0 - 1.2 [facility] [place] Work Phone: Bilirubin.direct [Mass/Vol] 0.1 mg/dL 0.0 - 0.3 [facility] Work Phone: Protein [Mass/Vol] 6.3 g/dL below low threshold 6.4 - 8.2 [facility] Work Phone: RENAL FUNCTION PANELon 10-28 Albumin [Mass/Vol] 3.4 g/dL Normal 3.4 - 5.0 [facility] Comment on above: Performed By: #### C MP #### [facility] [address] [place] [address] Anion gap [Moles/Vol] 13 mmol/L Normal 10 - 20 [facility] Comment on above: Performed By: #### C MP #### [facility] [address] [place] [address] Calcium [Mass/Vol] 8.7 mg/dL Normal 8.6 - 10.6 [facility] Comment on above: Performed By: #### C MP #### [facility] [address] [place] [address] Chloride [Moles/Vol] 104 mmol/L Normal 98 - 107 [facility] Comment on above: Performed By: #### C MP #### [facility] [address] [place] [address] Creatinine [Mass/Vol] 1.39 mg/dL High 0.50 - 1.05 [facility] Comment on above: Performed By: #### C MP #### [facility] [address] [place] [address] GFR/1.73 sq M.predicted among non-blacks MDRD (S/P/Bld) [Vol rate/Area] 44 mL/min/{1.73_m2} Abnormal >90 [facility] Comment on above: Result Comment: CALC ULATIONS OF ESTIMATED GFR ARE PERFORMED USING THE 2020 CKD-EPI STUDY REFIT EQUATION WITHOUT THE RACE VARIABLE FOR THE IDMS-TRACEABLE CREATININE METHODS. https://jasn.asnjournals.org/content/early//ASN.94088 18797 Performed By: #### C MP #### [facility] [address] [place] [address] Glucose [Mass/Vol] 85 mg/dL Normal 74 - 99 [facility] Comment on above: Performed By: #### C MP #### [facility] [address] [place] [address] HCO3 (Bld) [Moles/Vol] 26 mmol/L Normal 21 - 32 [facility] Comment on above: Performed By: #### C MP #### [facility] [address] [place] [address] Phosphate [Mass/Vol] 4.1 mg/dL Normal 2.5 - 4.9 [facility] Comment on above: Result Comment: The performance characteristics of phosphorus testing in heparinized plasma have been validated by the individual laboratory site where testing is performed. Testing on heparinized plasma is not approved by the FDA; however, such approval is not necessary. Performed By: #### C MP #### [facility] [address] [place] [address] Potassium [Moles/Vol] 3.9 mmol/L Normal 3.5 - 5.3 [facility] Comment on above: Performed By: #### C MP #### [facility] [address] [place] [address] Sodium [Moles/Vol] 139 mmol/L Normal 136 - 145 [facility] Comment on above: Performed By: #### C MP #### [facility] [address] [place] [address] Urea nitrogen [Mass/Vol] 10 mg/dL Normal 6 - 23 [facility] Comment on above: Performed By: #### C #### [facility] [address] [place] [address] Renal Function Panelon 10-28 Albumin BCP dye [Mass/Vol] 3.4 g/dL 3.4 - 5.0 [facility] Wilfridjodi Giang Work Phone: Anion gap [Moles/Vol] 13 mmol/L 10 - 20 [facility] Wilfrid Giang Work Phone: [phone] Calcium [Mass/Vol] 8.7 mg/dL 8.6 - 10.6 [facility] icine- Wilfrid Giang Work Phone: Chloride [Moles/Vol] 104 mmol/L 98 - 107 [facility] edgiovany- Wilfrid Giang Work Phone: CO2 [Moles/Vol] 26 mmol/L 21 - 32 [facility] ne- Wilfrid Giang Work Phone: [phone] Creatinine [Mass/Vol] 1.39 mg/dL above high threshold See Below [facility] Wilfrid Giang Work Phone: Comment on above: Reference Range: 0.5 0 - 1.05 Glucose [Mass/Vol] 85 mg/dL 74 - 99 [facility] giovany- Wilfrid Giang Work Phone: Phosphate [Mass/Vol] 4.1 mg/dL 2.5 - 4.9 [facility] edgiovany- Wilfrid Giang Work Phone: Comment on above: The performance bruce acteristics of phosphorus testing in heparinized plasma have been validated by the individual laboratory site where testing is performed. Testing on heparinized plasma is not approved by the FDA; however, such approval is not necessary. Potassium [Moles/Vol] 3.9 mmol/L 3.5 - 5.3 [facility] Wilfrid Giang Work Phone: Sodium [Moles/Vol] 139 mmol/L 136 - 145 [facility] gailne- Wilfridjodi Giang Work Phone: Urea nitrogen [Mass/Vol] 10 mg/dL 6 - 23 [facility]-Ulices Giang Work Phone: Renal Function Panel 44 {mL/min/1.73m2} Abnormal >90 [facility]Ulices [facility] Work Phone: Comment on above: CALCULATIONS OF PAVAN MATED GFR ARE PERFORMED USING THE 2020 CKD-EPI STUDY REFIT EQUATION WITHOUT THE RACE VARIABLE FOR THE IDMS-TRACEABLE CREATININE METHODS.https://jasn.asnjournals.org/content/early/A SN.4821424591 UA MICROSCOPICon 10-28-2022 RBC 2 /HPF Normal 0-5 [facility] Comment on above: Performed By: #### C MP #### [facility] [address] [place] [address] SQUAMOUS EPITH. CELLS 7 /HPF Normal [facility] Comment on above: Performed By: #### C MP #### [facility] [address] [place] [address] WBC 2 /HPF Normal 0-5 [facility] Comment on above: Performed By: #### C MP #### [facility] [address] [place] [address] URINALYSIS WITH CULTURE IF I NDICATEDon 10-28-2022 Appearance (U) HAZY Normal CLEAR [facility] Comment on above: Performed By: #### C MP #### [facility] [address] [place] [address] Bilirubin Ql (U) Negative Normal NEGATIVE [facility] Comment on above: Performed By: #### C MP #### [facility] [address] [place] [address] Color (U) YELLOW Normal STRAW,YELLOW [facility] Comment on above: Performed By: #### C MP #### [facility] [address] [place] [address] Glucose Ql (U) Negative Normal NEGATIVE [facility] Comment on above: Performed By: #### C MP #### [facility] [address] [place] [address] Hemoglobin Ql (U) Negative Normal NEGATIVE [facility] Comment on above: Performed By: #### C MP #### [facility] [address] [place] [address] Ketones Ql (U) Negative Normal NEGATIVE [facility] Comment on above: Performed By: #### C MP #### [facility] [address] [place] [address] Leukocyte esterase Test strip Ql (U) Negative Normal NEGATIVE [facility] Comment on above: Performed By: #### C MP #### [facility] [address] [place] [address] Nitrite Ql (U) Negative Normal NEGATIVE [facility] Comment on above: Performed By: #### C MP #### [facility] [address] [place] [address] pH (U) 6.0 [pH] Normal 5.0 - 8.0 [facility] Comment on above: Performed By: #### C MP #### [facility] [address] [place] [address] Protein Ql (U) 30 (1+) Abnormal NEGATIVE [facility] Comment on above: Performed By: #### C MP #### [facility] [address] [place] [address] Specific gravity (U) [Rel density] 1.020 Normal 1.005 - 1.035 [facility] Comment on above: Performed By: #### C MP #### [facility] [address] [place] [address] Urobilinogen (U) [Mass/Vol] mg/dL Normal 0.0 - 1.9 [facility] Comment on above: Performed By: #### C MP #### [facility] [address] [place] [address] Color (U) YELLOW See Below [facility] Work Phone: Comment on above: Reference Range: STR AW,YELLOW Glucose Ql (U) Negative NEGATIVE [facility] Work Phone: Ketones Ql (U) Negative NEGATIVE [facility] Work Phone: [phone] Leukocyte esterase Test strip Ql (U) Negative NEGATIVE [facility] Work Phone: 1 pH (U) 6.0 [pH] 5.0 - 8.0 [facility] Work Phone: 1 Protein (U) [Mass/Vol] 30 (1+) Abnormal NEGATIVE [facility] Work Phone: RBC (U) [#/Vol] Negative NEGATIVE [facility] Work Phone: Specific gravity (U) [Rel density] 1.020 1 See Below [facility] Work Phone: Comment on above: Reference Range: 1.0 05 - 1.035 URINALYSIS WITH CULTURE IF INDICATED Negative NEGATIVE [facility] Work Phone: 1 URINALYSIS WITH CULTURE IF INDICATED <2.0 0.0 - 1.9 [facility] Work Phone: URINALYSIS WITH CULTURE IF INDICATED HAZY CLEAR [facility] Work Phone: [phone] Urinalysis, Microscopicon Urinalysis, Microscopic 7 {/HPF} [facility] Work Phone: 1 Urinalysis, Microscopic 2 {/HPF} 0-5 [facility] Work Phone: 1 VANCOMYCINon 10-28-2022 VANCOMYCIN 13.7 ug/mL Normal [facility] Comment on above: Result Comment: .The rapeutic Ranges: Peak: All ages: 30.0-40.0 ug/mL . Trough: Age <18y: 5.0-10.0 ug/mL . Age >/= 18y: 5.0-20.0 ug/mL . Vancomycin trough concentrations drawn immediately prior to the next dose at steady-state are preferred for monitoring patients treated with vancomycin. Ref.: Am J Health-Syst Pharm 66: 83-98, 2009. Performed By: #### C MP #### [facility] [address] [place] [address] ANCA-ASSOCIATED VASCULITIS P ROFILE [ANCA,MPO,PR3]on 10-27-2022 Myeloperoxidase Ab Qn (S) 0 AU/mL 0-19 [employer] Work Phone: Comment on above: INTERPRETIVE INFORMA TION: Myeloperoxidase Abs, IgG 19 AU/mL or Less ......... Negative 20-25 AU/mL .............. Equivocal 26 AU/mL or Greater ...... PositiveApproximately 90% of patients with a P-ANCA pattern by IFA have antibodies specific for MPO. Proteinase 3 Ab Qn (S) 0 AU/mL 0-19 [employer] Work Phone: Comment on above: INTERPRETIVE INFORMA TION: Serine Proteinase 3, IgG 19 AU/mL or Less ........ Negative 20-25 AU/mL ............. Equivocal 26 AU/mL or Greater ..... PositiveApproximately 85% of patients with a C-ANCA pattern by IFA have antibodies specific for PR3. ANCA-ASSOCIATED VASCULITIS PROFILE [ANCA,MPO,PR3] Not detected See Below [employer] Work Phone: Comment on above: Reference Range: Non e DetectedINTERPRETIVE INFORMATION: ANCA IFA Pattern Neutrophil Cytoplasmic Antibodies (C-ANCA = granular cytoplasmic staining, P-ANCA = perinuclear staining) are found in the serum of over 90 percent of patients with certain necrotizing systemic vasculitides, and usually in less than 5 percent of patients with collagen vascular disease or arthritis.Performed By: [facility] [place] [address] [id number] Director: Kyle Hyatt MD, PhD ANCA-ASSOCIATED VASCULITIS PROFILE [ANCA,MPO,PR3] <1:20 <1:20 [employer] Work Phone: CBC AND DIFFERENTIALon 10-27 % AUTOMATED IMMATURE GRAN 0.7 % Normal 0.0 - 0.9 [facility] Comment on above: Result Comment: Iram ture Granulocyte Count (IG) includes promyelocytes, myelocytes and metamyelocytes but does not include bands. Percent differential counts (%) should be interpreted in the context of the absolute cell counts (cells/L). Performed By: #### U A #### [facility] [address] [place] [address] Basophils (Bld) [#/Vol] 0.05 10*3/uL Normal 0.00 - 0.10 [facility] Comment on above: Performed By: #### U A #### [facility] [address] [place] [address] Basophils/100 WBC (Bld) 0.5 % Normal 0.0 - 2.0 [facility] Comment on above: Performed By: #### U A #### [facility] [address] [place] [address] Eosinophils (Bld) [#/Vol] 0.99 10*3/uL High 0.00 - 0.70 [facility] Comment on above: Performed By: #### U A #### [facility] [address] [place] [address] Eosinophils/100 WBC (Bld) 10.6 % Normal 0.0 - 6.0 [facility] Comment on above: Performed By: #### U A #### [facility] [address] [place] [address] Erythrocyte distribution width (RBC) [Ratio] 13.3 % Normal 11.5 - 14.5 [facility] Comment on above: Performed By: #### U A #### [facility] [address] [place] [address] Hematocrit (Bld) [Volume fraction] 35.9 % Low 36.0 - 46.0 [facility] Comment on above: Performed By: #### U A #### [facility] [address] [place] [address] Hemoglobin (Bld) [Mass/Vol] 11.7 g/dL Low 12.0 - 16.0 [facility] Comment on above: Performed By: #### U A #### [facility] [address] [place] [address] Lymphocytes (Bld) [#/Vol] 1.29 10*3/uL Normal 1.20 - 4.80 [facility] Comment on above: Performed By: #### U A #### [facility] [address] [place] [address] Lymphocytes/100 WBC (Bld) 13.8 % Normal 13.0 - 44.0 [facility] Comment on above: Performed By: #### U A #### [facility] [address] [place] [address] MCHC (RBC) [Mass/Vol] 32.6 g/dL Normal 32.0 - 36.0 [facility] Comment on above: Performed By: #### U A #### [facility] [address] [place] [address] MCV (RBC) [Entitic vol] 82 fL Normal 80 - 100 [facility] Comment on above: Performed By: #### U A #### [facility] [address] [place] [address] Monocytes (Bld) [#/Vol] 1.18 10*3/uL High 0.10 - 1.00 [facility] Comment on above: Performed By: #### U A #### [facility] [address] [place] [address] Monocytes/100 WBC (Bld) 12.6 % Normal 2.0 - 10.0 [facility] Comment on above: Performed By: #### U A #### [facility] [address] [place] [address] Neutrophils (Bld) [#/Vol] 5.78 10*3/uL Normal 1.20 - 7.70 [facility] Comment on above: Performed By: #### U A #### [facility] [address] [place] [address] Neutrophils/100 WBC (Bld) 61.8 % Normal 40.0 - 80.0 [facility] Comment on above: Performed By: #### U A #### [facility] [address] [place] [address] NUCLEATED RBC 0.0 /100 WBC Normal 0.0-0.0 [facility] Comment on above: Performed By: #### U A #### [facility] [address] [place] [address] Platelets (Bld) [#/Vol] 318 10*3/uL Normal 150 - 450 [facility] Comment on above: Performed By: #### U A #### [facility] [address] [place] [address] RBC 4.40 x10E12/L Normal 4.00 - 5.20 [facility] Comment on above: Performed By: #### U A #### [facility] [address] [place] [address] WBC (Bld) [#/Vol] 9.4 10*3/uL Normal 4.4 - 11.3 [facility] Comment on above: Performed By: #### U A #### [facility] [address] [place] [address] COMPREHENSIVE PANELon 2022 Albumin [Mass/Vol] 3.5 g/dL Normal 3.4 - 5.0 [facility] Comment on above: Performed By: #### U A #### [facility] [address] [place] [address] ALP [Catalytic activity/Vol] 109 U/L Normal 33 - 110 [facility] Comment on above: Performed By: #### U A #### [facility] [address] [place] [address] ALT [Catalytic activity/Vol] 20 U/L Normal 7 - 45 [facility] Comment on above: Result Comment: Gretta ents treated with Sulfasalazine may generate falsely decreased results for ALT. Performed By: #### U A #### [facility] [address] [place] [address] Anion gap [Moles/Vol] 15 mmol/L Normal 10 - 20 [facility] Comment on above: Performed By: #### U A #### [facility] [address] [place] [address] AST [Catalytic activity/Vol] 20 U/L Normal 9 - 39 [facility] Comment on above: Performed By: #### U A #### [facility] [address] [place] [address] Bilirubin [Mass/Vol] 0.3 mg/dL Normal 0.0 - 1.2 [facility] Comment on above: Performed By: #### U A #### [facility] [address] [place] [address] Calcium [Mass/Vol] 9.2 mg/dL Normal 8.6 - 10.6 [facility] Comment on above: Performed By: #### U A #### [facility] [address] [place] [address] Chloride [Moles/Vol] 102 mmol/L Normal 98 - 107 [facility] Comment on above: Performed By: #### U A #### [facility] [address] [place] [address] Creatinine [Mass/Vol] 1.53 mg/dL High 0.50 - 1.05 [facility] Comment on above: Performed By: #### U A #### [facility] [address] [place] [address] GFR/1.73 sq M.predicted among non-blacks MDRD (S/P/Bld) [Vol rate/Area] 39 mL/min/{1.73_m2} Abnormal >90 [facility] Comment on above: Result Comment: CALC ULATIONS OF ESTIMATED GFR ARE PERFORMED USING THE 2020 CKD-EPI STUDY REFIT EQUATION WITHOUT THE RACE VARIABLE FOR THE IDMS-TRACEABLE CREATININE METHODS. https://jasn.asnjournals.org/content///ASN.78845 36663 Performed By: #### U A #### [facility] [address] [place] [address] Glucose [Mass/Vol] 91 mg/dL Normal 74 - 99 [facility] Comment on above: Performed By: #### U A #### [facility] [address] [place] [address] HCO3 (Bld) [Moles/Vol] 24 mmol/L Normal 21 - 32 [facility] Comment on above: Performed By: #### U A #### [facility] [address] [place] [address] Potassium [Moles/Vol] 4.4 mmol/L Normal 3.5 - 5.3 [facility] Comment on above: Performed By: #### U A #### [facility] [address] [place] [address] Protein [Mass/Vol] 6.6 g/dL Normal 6.4 - 8.2 [facility] Comment on above: Performed By: #### U A #### [facility] [address] [place] [address] Sodium [Moles/Vol] 137 mmol/L Normal 136 - 145 [facility] Comment on above: Performed By: #### U A #### [facility] [address] [place] [address] Urea nitrogen [Mass/Vol] 12 mg/dL Normal 6 - 23 [facility] Comment on above: Performed By: #### U A #### [facility] [address] [place] [address] Complete Blood Count + Diffe rentialon 10-27-2022 Basophils/100 WBC (Bld) 0.5 % 0.0 - 2.0 [facility] Work Phone: Erythrocyte distribution width (RBC) [Ratio] 13.3 % See Below [facility] Work Phone: Comment on above: Reference Range: 11. 5 - 14.5 Hematocrit (Bld) [Volume fraction] 35.9 % below low threshold See Below [facility] Work Phone: Comment on above: Reference Range: 36. 0 - 46.0 Hemoglobin (Bld) [Mass/Vol] 11.7 g/dL below low threshold See Below [facility] Work Phone: Comment on above: Reference Range: 12. 0 - 16.0 Lymphocytes/100 WBC (Bld) 13.8 % See Below [facility] Work Phone: Comment on above: Reference Range: 13. 0 - 44.0 MCHC (RBC) [Mass/Vol] 32.6 g/dL See Below [facility] Work Phone: Comment on above: Reference Range: 32. 0 - 36.0 MCV (RBC) [Entitic vol] 82 fL 80 - 100 [facility] Work Phone: [phone] Monocytes/100 WBC (Bld) 12.6 % 2.0 - 10.0 [facility] Work Phone: [phone] Neutrophils/100 WBC (Bld) 61.8 % See Below [facility] Work Phone: [phone] Comment on above: Reference Range: 40. 0 - 80.0 Platelets (Bld) [#/Vol] 318 10*3/uL 150 - 450 [facility] Work Phone: [phone] RBC (Bld) [#/Vol] 4.40 {x10E12/L} See Below [facility] Work Phone: Comment on above: Reference Range: 4.0 0 - 5.20 WBC (Bld) [#/Vol] 9.4 10*3/uL 4.4 - 11.3 [facility] Work Phone: [phone] Complete Blood Count + Differential 0.05 {x10E9/L} See Below [facility] Work Phone: [phone] Comment on above: Reference Range: 0.0 0 - 0.10 Complete Blood Count + Differential 0.99 {x10E9/L} above high threshold See Below [facility] Work Phone: [phone] Comment on above: Reference Range: 0.0 0 - 0.70 Complete Blood Count + Differential 1.18 {x10E9/L} above high threshold See Below [facility] Work Phone: Comment on above: Reference Range: 0.1 0 - 1.00 Complete Blood Count + Differential 1.29 {x10E9/L} See Below [employer] [facility] Work Phone: Comment on above: Reference Range: 1.2 0 - 4.80 Complete Blood Count + Differential 5.78 {x10E9/L} See Below [facility] Work Phone: Comment on above: Reference Range: 1.2 0 - 7.70 Complete Blood Count + Differential 10.6 % 0.0 - 6.0 [facility] Work [...] 0.0 {/100_WBC} 0.0-0.0 [facility] Work Phone: Daily Progress Note-Infectio [...] improved. Objective Data: Objective Information: T PRBPMAPSpO2 [id number]/7893% Date/Time10/27 14: 14: 14: 14: 14:12 Range(36.2C [...] Cl- BUN / 137 102 12 / -------- Glucose --- 91 K+ HCO3- Creat \ 4.4 24 [...] OSH. First full day of therapy at [facility] was on 10/21. MRSA swab collected here today. Would continue to treat w/ PO amox-clav once ready for d/c. If MRSA swab is positive, can transition or change to TMP-SMX. #CHUY Baseline <1, Cr 1.5. Could be combination of vanc and pip-tazo; Cr currently stab (more content not included)... Normal [facility] Daily Progress Note-Medicine on 10-27-2022 Daily Progress [...] lid. Objective Data: Objective Information: T PRBPMAPSpO2 [id number]/8297% Date/Time10/27 4: 4: 4: 4: 4:29 Range(36.3C [...] Cl- BUN / 136 102 15 / -------- Glucose --- 124 H K+ HCO3- Creat \ 4.1 [...] antibacterial agents only -Vancomycin and pip/tazo continued -Oculoplastics/ophthalmo logy consulted - ID consulted recommends continuing current [...] that it started the day she left [facility]. C. diff work up at [facility] came back negative - Likely due to Abx - Started on Immodium as needed - Will consider C diff PCR if diarrhea continues (more content not included)... Normal [facility] Daily Progress Note-Ophthalm ologyon 10-27-2022 Daily Progress Note-Ophthalmology Service: Ophthalmology Subjective Data: GRACIE BANUELOS is a 57 year old Female who is Hospital Day # 5. Objective Data: Objective Information: T PRBPMAPSpO2 [id number]/8297% Date/Time10/27 4: 4: 4: 4: 4:29 Range(36.3C [...] Cl- BUN / 137 102 12 / -------- Glucose --- 91 K+ HCO3- Creat \ 4.4 24 1.53 H \ \ T Bili / \ 0.3 / AST x ---- x ALT 20 x ---- x 20 / Alk P \ / 109 \ Calcium : 9.2 Anion Gap : 15 Albumin : 3.5 T Protein : 6.6 RFP: 10/26/2022 11:30 NA+ Cl- BUN / 136 102 15 / -------- Glucose --- 124 H K+ HCO3- Creat \ 4.1 [...] progressed. On 10/19/22 she presented to the [facility] and CT orbits showed findings concerning for right orbital cellulitis. WBC was reportedly 13.9, ESR 75, and CRP 42.6. She was prescribed clindamycin to take at home, but her pain only worsened and she presented to [facility] on 10/20[facility]22 for further management. MRI orbits [...] CT Orbit Sella Inner, by report from [facility] shows: 1. Marked abnormality of the [...] orbit. 5. (more content not included)... Normal [facility] EMR ADDONon 10-27-2022 ADDON CONFIRMATION REQUEST REC'D Normal [facility] Comment on above: Performed By: #### U A #### [facility] [address] [place] [address] GLUCOSE-POCTon 10-27-2022 Glucose [Mass/Vol] 100 mg/dL High 74 - 99 [facility] Comment on above: Performed By: #### U A #### [facility] [address] [place] [address] Laboratory - Chemistry and C hemistry - challengeon 10-27-2022 Potassium (U) [Moles/Vol] 6 mmol/L See Below [facility] Work Phone: Comment on above: Reference Range: Not Established Potassium/Creatinine (U) [Molar ratio] 22 {mmol/g_Creat} See Below [facility] [employer] Work Phone: Comment on above: Reference Range: Not Established Sodium (U) [Moles/Vol] 18 mmol/L See Below [facility] [employer] Work Phone: Comment on above: Reference Range: Not Established Sodium/Creatinine (U) [Ratio] 67 {mmol/g_Creat} See Below [facility] [employer] Work Phone: Comment on above: Reference Range: Not Established Glucose [Mass/Vol] 100 mg/dL above high threshold 74 - 99 [facility] [employer] Work Phone: Albumin BCP dye [Mass/Vol] 3.5 g/dL 3.4 - 5.0 [facility] [place] Work Phone: [phone] ALP [Catalytic activity/Vol] 109 U/L 33 - 110 [facility] Work Phone: [phone] ALT With P-5'-P [Catalytic activity/Vol] 20 U/L 7 - 45 [facility] Work Phone: [phone] Comment on above: Patients treated wit h Sulfasalazine may generate falsely decreased results for ALT. Anion gap [Moles/Vol] 15 mmol/L 10 - 20 [facility] [place] Work Phone: [phone] AST With P-5'-P [Catalytic activity/Vol] 20 U/L 9 - 39 [facility] [place] Work Phone: [phone] Bilirubin [Mass/Vol] 0.3 mg/dL 0.0 - 1.2 [facility] Work Phone: [phone] Calcium [Mass/Vol] 9.2 mg/dL 8.6 - 10.6 [facility] [place] [facility] Work Phone: [phone] Chloride [Moles/Vol] 102 mmol/L 98 - 107 [facility] Work Phone: [phone] CO2 [Moles/Vol] 24 mmol/L 21 - 32 [facility] Work Phone: [phone] Creatinine [Mass/Vol] 1.53 mg/dL above high threshold See Below [facility] [place] Work Phone: [phone] Comment on above: Reference Range: 0.5 0 - 1.05 Glucose [Mass/Vol] 91 mg/dL 74 - 99 [facility] [place] [facility] Work Phone: [phone] Potassium [Moles/Vol] 4.4 mmol/L 3.5 - 5.3 [facility] [place] Work Phone: [phone] Protein [Mass/Vol] 6.6 g/dL 6.4 - 8.2 [facility] Work Phone: Sodium [Moles/Vol] 137 mmol/L 136 - 145 [facility] Work Phone: Urea nitrogen [Mass/Vol] 12 mg/dL 6 - 23 [facility] Work Phone: MRSA Screenon 10-27-2022 Staphylococcus sp identified Org specific cx Nom (Unsp spec) [facility] Work Phone: No Panel Informationon 10-27 39 {mL/min/1.73m2} Abnormal >90 [facility] rigoberto [facility] Work Phone: Comment on above: CALCULATIONS OF PAVAN MATED GFR ARE PERFORMED USING THE 2020 CKD-EPI STUDY REFIT EQUATION WITHOUT THE RACE VARIABLE FOR THE IDMS-TRACEABLE CREATININE METHODS.https://jasn.asnjournals.org/content/early//A SN.2837499369 POTASSIUM, URINE SPOTon 09-30 POT/CREAT RATIO 22 mmol/g Creat Normal Not Established [facility] Comment on above: Performed By: #### U A #### [facility] [address] [place] [address] POTASSIUM,URINE SPOT 6 mmol/L Normal Not Established [facility] Comment on above: Performed By: #### U A #### [facility] [address] [place] [address] SODIUM, URINE SPOTon 023 CREATININE,URINE 27.0 mg/dL Normal 20.0 - 320.0 [facility] Comment on above: Performed By: #### C MP #### [facility] [address] [place] [address] Performed By: #### U A #### [facility] [address] [place] [address] Sodium (U) [Moles/Vol] 18 mmol/L Normal Not Established [facility] Comment on above: Performed By: #### C MP #### [facility] [address] [place] [address] SODIUM/CREAT RATIO 67 mmol/g Creat Normal Not Established [facility] Comment on above: Performed By: #### C MP #### [facility] [address] [place] [address] STAPH/MRSA SCREENon 10-27-19 STAPH/MRSA SCREEN PATIENT: FERNIE BANUELOS LOCATION: [place] [address] BILL#: [id number] : 61 AGE: SEX: F ORDERED BY: JUSTYN RICHTER SOURCE: ANTERIOR NARES COLLECTED: 10/27/22 15:12 ANTIBIOTICS AT DEB.: RECEIVED : 10/27/22 17:38 SITE: Nares R E S U L T S STAPH/MRSA SCREEN FINAL 10/29/22 11:04 NO Staphylococcus aureus ISOLATED. Normal [facility] Comment on above: Performed By: #### S TAPH #### [facility] [address] [place] [address] T-SPOT TBon 10-27-2022 NIL[NEG]CONTROL SPOT COUNT Passed Normal [facility] Comment on above: Performed By: #### V ANCU #### [facility] [address] [place] [address] PANEL A SPOT COUNT 0 Normal [facility] Comment on above: Performed By: #### V ANCU #### [facility] [address] [place] [address] PANEL B SPOT COUNT 0 Normal [facility] Comment on above: Performed By: #### V ANCU #### [facility] [address] [place] POS CONTROL SPOT COUNT Passed Normal [facility] Comment on above: Performed By: #### V ANCU #### [facility] [address] [place] [address] T-SPOT.TB INTERP Negative Normal Normal Value: Negative [facility] Comment on above: Result Comment: A ne [...] test. Performed By: #### V ANCU #### [facility] [address] [place] [address] TOTAL PROTEIN, URINE SPOTon 10-27-2022 T. PROTEIN/CREAT RATIO 0.19 mg/mg Creat High 0.00 - 0.17 [facility] Comment on above: Performed By: #### C MP #### [facility] [address] [place] [address] TOTAL PROT,URINE SPOT 5 mg/dL Normal 5 - 24 [facility] Comment on above: Performed By: #### C MP #### [facility] [address] [place] [address] Telephone Encounteron 2022 [employer] Interface Message Lanie Quick from called requesting a 2 week follow appointment for this pt. Pt is being discharged today for eye pain. Pt was recently seen on 10/22/2022. Where should I schedule this pt ? Thank you Sarah Voss [facility] [employer] [facility] Total Protein, Urine Spoton 10-27-2022 Creatinine (U) [Mass/Vol] 27.0 mg/dL See Below [employer] Work Phone: Comment on above: Reference Range: 20. 0 - 320.0 Protein (U) [Mass/Vol] 5 mg/dL 5 - 24 [employer] Work Phone: Protein/Creatinine (U) [Ratio] 0.19 {mg/mg_Creat} above high threshold See Below [employer] Work Phone: Comment on above: Reference Range: 0.0 0 - 0.17 URINALYSISon 10-27-2022 Appearance (U) CLEAR Normal CLEAR [facility] Comment on above: Performed By: #### U A #### [facility] [address] [place] [address] Bilirubin Ql (U) Negative Normal NEGATIVE [facility] Comment on above: Performed By: #### U A #### [facility] [address] [place] [address] Color (U) STRAW Normal STRAW,YELLOW [facility] [place] Comment on above: Performed By: #### U A #### [facility] [address] [place] [address] Glucose Ql (U) 50 (TRACE) Abnormal NEGATIVE [facility] Comment on above: Performed By: #### U A #### [facility] [address] [place] [address] Hemoglobin Ql (U) Negative Normal NEGATIVE [facility] Comment on above: Performed By: #### U A #### [facility] [address] [place] [address] Ketones Ql (U) Negative Normal NEGATIVE [facility] Comment on above: Performed By: #### U A #### [facility] [address] [place] [address] Leukocyte esterase Test strip Ql (U) Negative Normal NEGATIVE [facility] Comment on above: Performed By: #### U A #### [facility] [address] [place] [address] Nitrite Ql (U) Negative Normal NEGATIVE [facility] Comment on above: Performed By: #### U A #### [facility] [address] [place] [address] pH (U) 6.0 [pH] Normal 5.0 - 8.0 [facility] Comment on above: Performed By: #### U A #### [facility] [address] [place] [address] Protein Ql (U) Negative Normal NEGATIVE [facility] Comment on above: Performed By: #### U A #### [facility] [address] [place] [address] Specific gravity (U) [Rel density] 1.006 Normal 1.005 - 1.035 [facility] Comment on above: Performed By: #### U A #### [facility] [address] [place] [address] Urobilinogen (U) [Mass/Vol] mg/dL Normal 0.0 - 1.9 [facility] Comment on above: Performed By: #### U A #### [facility] [address] [place] [address] Urinalysison 10-27-2022 Color (U) [place] See Below [facility] Work Phone: Comment on above: Reference Range: STR AW,YELLOW Glucose Ql (U) 50 (TRACE) Abnormal NEGATIVE [facility] Work Phone: Ketones Ql (U) Negative NEGATIVE [facility] Work Phone: [phone] Leukocyte esterase Test strip Ql (U) Negative NEGATIVE [facility] Work Phone: pH (U) 6.0 [pH] 5.0 - 8.0 [facility] Work Phone: Protein (U) [Mass/Vol] Negative NEGATIVE [facility] Work Phone: RBC (U) [#/Vol] Negative NEGATIVE [facility] Work Phone: [phone] Specific gravity (U) [Rel density] 1.006 1 See Below [facility] Work Phone: Comment on above: Reference Range: 1.0 05 - 1.035 Urinalysis Negative NEGATIVE [facility] Work Phone: Urinalysis <2.0 0.0 - 1.9 [facility] Work Phone: Urinalysis CLEAR CLEAR [facility] Work Phone: Vancomycin Level, Randomon 0 10-27-2022 Vancomycin [Mass/Vol] 13.7 ug/mL [facility] Work Phone: Comment on above: .Therapeutic Ranges: Peak: All ages: 30.0-40.0 ug/mL. Trough: Age <18y: 5.0-10.0 ug/mL. Age >/= 18y: 5.0-20.0 ug/mL. Vancomycin trough concentrations drawn immediately prior to the next dose at steady-state are preferred for monitoring patients treated with vancomycin. Ref.: Am J Health-Syst Pharm 66: 83-98, 2008. ANGIOTENSIN CONV ENZYMEon ANGIOTENSIN CONV ENZYME <10 Low [facility] Comment on above: Result Comment: Perf ormed By: [employer] [address] [place] [id number] Documentation Billing Clerk: Kyle Hyatt MD, PhD Performed By: #### U A #### [facility] [address] [place] [address] Daily Progress Note-Medicine on 10-26-2022 Daily Progress [...] diarrhea. Objective Data: Objective Information: T PRBPMAPSpO2 [id number]/9594% Date/Time10/26 3: 3: 3: 3: 3:37 Range(36.3C [...] and normal strength Medication: Medications: Continuous Medications -------- No continuous medications are active Scheduled Medications -------- 1. Acetaminophen: 975 mg Oral Every 8 [...] 1 each As Specified Variable PRN Medications -------- 1. Albuterol 90 micrograms/ Inhalation MDI: 2 [...] BUN / 135 L 101 10 / -------- Glucose --- 104 H K+ HCO3- Creat \ 3.7 [...] antibacterial agents only -Vancomycin and pip/tazo continued -Oculoplastics/ophthalmo logy consulted - ID consulted recommends continuing current abx regimen - ENT consulted they referred the biopsy to oculoplastics - Oculoplastics recommends waiting for the next few days for any improvement on antibiotics. (more content not included)... Normal [facility] Daily Progress Note-Ophthalm ologyon 10-26-2022 Daily Progress Note-Ophthalmology Service: Ophthalmology Subjective Data: GRACIE BANUELOS is a 57 year old Female who is Hospital Day # 4. Objective Data: Objective Information: T PRBPMAPSpO2 [id number]/7694% Date/Time10/26 3: 12: 12: 12: 3:37 Range(36.3C [...] Cl- BUN / 139 103 9 / -------- Glucose --- 95 K+ HCO3- Creat \ 4.1 25 [...] progressed. On 10/19/22 she presented to the [place] [facility] and CT orbits showed findings concerning for right orbital cellulitis. WBC was reportedly 13.9, ESR 75, and CRP 42.6. She was prescribed clindamycin to take at home, but her pain only worsened and she presented to [facility] on 10/20/22 for further management. MRI orbits [...] CT Orbit Sella Inner, by report from [employer] shows: 1. Marked abnormality of the soft [...] which I personally reviewed, by report from [employer] shows Abnormal infiltration throughout the right retroan (more content not included)... Normal [facility] RENAL FUNCTION PANELon 10-26 Albumin [Mass/Vol] 3.9 g/dL Normal 3.4 - 5.0 [facility] Comment on above: Performed By: #### U A #### [facility] [address] [place] [address] Anion gap [Moles/Vol] 14 mmol/L Normal 10 - 20 [facility] Comment on above: Performed By: #### U A #### [facility] [address] [place] [address] Calcium [Mass/Vol] 9.2 mg/dL Normal 8.6 - 10.6 [facility] Comment on above: Performed By: #### U A #### [facility] [address] [place] [address] Chloride [Moles/Vol] 102 mmol/L Normal 98 - 107 [facility] Comment on above: Performed By: #### U A #### [place] [address] [place] [address] Creatinine [Mass/Vol] 1.57 mg/dL High 0.50 - 1.05 [facility] Comment on above: Performed By: #### U A #### [facility] [address] [place] [address] GFR/1.73 sq M.predicted among non-blacks MDRD (S/P/Bld) [Vol rate/Area] 38 mL/min/{1.73_m2} Abnormal >90 [facility] Comment on above: Result Comment: CALC ULATIONS OF ESTIMATED GFR ARE PERFORMED USING THE 2020 CKD-EPI STUDY REFIT EQUATION WITHOUT THE RACE VARIABLE FOR THE IDMS-TRACEABLE CREATININE METHODS. https://jasn.asnjournals.org/content/early//ASN.46498 78023 Performed By: #### U A #### [facility] [address] [place] [address] Glucose [Mass/Vol] 124 mg/dL High 74 - 99 [facility] Comment on above: Performed By: #### U A #### [facility] [address] [place] [address] HCO3 (Bld) [Moles/Vol] 24 mmol/L Normal 21 - 32 [facility] Comment on above: Performed By: #### U A #### [facility] [address] [place] [address] Phosphate [Mass/Vol] 5.3 mg/dL High 2.5 - 4.9 [facility] Comment on above: Result Comment: The performance characteristics of phosphorus testing in heparinized plasma have been validated by the individual laboratory site where testing is performed. Testing on heparinized plasma is not approved by the FDA; however, such approval is not necessary. Performed By: #### U A #### [facility] [address] [place] [address] Potassium [Moles/Vol] 4.1 mmol/L Normal 3.5 - 5.3 [facility] Comment on above: Performed By: #### U A #### [facility] [address] [place] [address] Sodium [Moles/Vol] 136 mmol/L Normal 136 - 145 [facility] Comment on above: Performed By: #### U A #### [facility] [address] [place] [address] Urea nitrogen [Mass/Vol] 15 mg/dL Normal 6 - 23 [facility] Comment on above: Performed By: #### U A #### [facility] [address] [place] [address] Renal Function Panelon 10-26 Albumin BCP dye [Mass/Vol] 3.9 g/dL 3.4 - 5.0 [facility] Work Phone: Anion gap [Moles/Vol] 14 mmol/L 10 - 20 [facility] Work Phone: Calcium [Mass/Vol] 9.2 mg/dL 8.6 - 10.6 [facility] Work Phone: Chloride [Moles/Vol] 102 mmol/L 98 - 107 [facility] Work Phone: CO2 [Moles/Vol] 24 mmol/L 21 - 32 [facility] ne[facility] Work Phone: Creatinine [Mass/Vol] 1.57 mg/dL above high threshold See Below [facility] Work Phone: Comment on above: Reference Range: 0.5 0 - 1.05 Glucose [Mass/Vol] 124 mg/dL above high threshold 74 - 99 [facility] Work Phone: Phosphate [Mass/Vol] 5.3 mg/dL above high threshold 2.5 - 4.9 [facility] Work Phone: Comment on [...] 145 [facility] Work Phone: [phone] Urea nitrogen [Mass/Vol] 15 mg/dL 6 - 23 [facility] [employer] Work Phone: Renal Function Panel 38 {mL/min/1.73m2} Abnormal >90 [facility] Work Phone: Comment on above: CALCULATIONS OF PAVAN MATED GFR ARE PERFORMED USING THE 2020 CKD-EPI STUDY REFIT EQUATION WITHOUT THE RACE VARIABLE FOR THE IDMS-TRACEABLE CREATININE METHODS.https://jasn.asnjournals.org/content/early/A SN.1204043023 VANCOMYCINon 10-26-2022 VANCOMYCIN 14.6 ug/mL Normal [facility] Comment on above: Result Comment: .The rapeutic Ranges: Peak: All ages: 30.0-40.0 ug/mL . Trough: Age <18y: 5.0-10.0 ug/mL . Age >/= 18y: 5.0-20.0 ug/mL . Vancomycin trough concentrations drawn immediately prior to the next dose at steady-state are preferred for monitoring patients treated with vancomycin. Ref.: Am J Health-Syst Pharm 66: 83-98, 2009. Performed By: #### V ANCU #### [facility] [address] [place] [address] Vancomycin Level, Randomon 0 10-26-2022 Vancomycin [Mass/Vol] 14.6 ug/mL [facility] Work Phone: Comment on above: .Therapeutic [...] [Catalytic activity/Vol] U/L below low threshold 16-85 [facility] Work Phone: Comment on above: Performed By: RAJENDRA [address] [place] [id number] Director: Kyle Hyatt MD, PhD CBCon 10-25-2022 Erythrocyte distribution width (RBC) [Ratio] 13.3 % Normal 11.5 - 14.5 [facility] Comment on above: Performed By: #### V ANCU #### [facility] [address] [place] [address] Hematocrit (Bld) [Volume fraction] 34.5 % Low 36.0 - 46.0 [facility] Comment on above: Performed By: #### V ANCU #### [place] [address] [place] [address] Hemoglobin (Bld) [Mass/Vol] 11.5 g/dL Low 12.0 - 16.0 [facility] Comment on above: Performed By: #### V ANCU #### [facility] [address] [place] [address] MCHC (RBC) [Mass/Vol] 33.3 g/dL Normal 32.0 - 36.0 [facility] Comment on above: Performed By: #### V ANCU #### [facility] [address] [place] [address] MCV (RBC) [Entitic vol] 82 fL Normal 80 - 100 [facility] Comment on above: Performed By: #### V ANCU #### [facility] [address] [place] [address] NUCLEATED RBC 0.0 /100 WBC Normal 0.0-0.0 [facility] Comment on above: Performed By: #### V ANCU #### [facility] [address] [place] [address] Platelets (Bld) [#/Vol] 306 10*3/uL Normal 150 - 450 [facility] Comment on above: Performed By: #### V ANCU #### [facility] [address] [place] [address] RBC 4.23 x10E12/L Normal 4.00 - 5.20 [facility] Comment on above: Performed By: #### V ANCU #### [facility] [address] [place] [address] WBC (Bld) [#/Vol] 10.1 10*3/uL Normal 4.4 - 11.3 [facility] Comment on above: Performed By: #### V ANCU #### [facility] [address] [place] [address] Daily Progress Note-Medicine on 10-25-2022 Daily Progress Note-Medicine Service: Medicine Subjective Data: GRACIE BANUELOS is a 57 year old Female who is Hospital Day # 3. No overnight events. Pt states the swelling in her right eye is better. She endorses at least 3 episodes of diarrhea a day since she came here. Objective Data: Objective Information: T PRBPMAPSpO2 [id number]/6893% Date/Time10/25 6: 6: 6: 6: 6:08 Range(36C [...] BUN / 135 L 101 10 / -------- Glucose --- 104 H K+ HCO3- Creat \ 3.7 [...] antibacterial agents only -Vancomycin and pip/tazo continued -Oculoplastics/ophthalmo logy consulted - ID consulted recommends continuing current abx regimen - ENT consulted they referred the biopsy to oculoplastics - Oculoplastics recommends waiting for the next few days for any improvement on antibiotics. If no improvement is noticed biopsy is recommended -Pain control with oxycodone, morphine for breakthrough # Diarrhea: Pt stated that it started the day she left [facility]. C. diff work up at [facility] came back negative - Likely due to Abx - Started on Immodium as needed - Will consider C diff PC (more content not included)... Normal [facility] Daily Progress Note-Ophthalm ologyon 10-25-2022 Daily Progress Note-Ophthalmology Service: Ophthalmology Subjective Data: GRACIE BANUELOS is a 57 year old Female who is Hospital Day # 3. Objective Data: Objective Information: T PRBPMAPSpO2 [id number]/6893% Date/Time10/25 6: 6: 6: 6: 6:08 Range(36C [...] Cl- BUN / 139 103 9 / -------- Glucose --- 95 K+ HCO3- Creat \ 4.1 25 [...] progressed. On 10/19/22 she presented to the [place] [facility] and CT orbits showed findings concerning for right orbital cellulitis. WBC was reportedly 13.9, ESR 75, and CRP 42.6. She was prescribed clindamycin to take at home, but her pain only worsened and she presented to [facility] on 10/20/22 for further management. MRI orbits [...] Periphery: no holes, tears, or detachments Imaging 1/22/23 CT Orbit Sella Inner, by report from [employer] shows: 1. Marked abnormality of the soft [...] which I personally reviewed, by report from [employer] shows Abnormal infiltration throughout the right retroantral and extraconal fat as well as the pterygopalatine fo (more content not included)... Normal [facility] Laboratory - Hematology and Cell countson 10-25-2022 Erythrocyte distribution width (RBC) [Ratio] 13.3 % See Below [employer] Work Phone: Comment on above: Reference Range: 11. 5 - 14.5 Hematocrit (Bld) [Volume fraction] 34.5 % below low threshold See Below [employer] Work Phone: Comment on above: Reference Range: 36. 0 - 46.0 Hemoglobin (Bld) [Mass/Vol] 11.5 g/dL below low threshold See Below [employer] Work Phone: Comment on above: Reference Range: 12. 0 - 16.0 MCHC (RBC) [Mass/Vol] 33.3 g/dL See Below [employer] Work Phone: Comment on above: Reference Range: 32. 0 - 36.0 MCV (RBC) [Entitic vol] 82 fL 80 - 100 [employer] Work Phone: Platelets (Bld) [#/Vol] 306 10*3/uL 150 - 450 [employer] Work Phone: RBC (Bld) [#/Vol] 4.23 {x10E12/L} See Below [facility] Work Phone: Comment on above: Reference Range: 4.0 0 - 5.20 WBC (Bld) [#/Vol] 10.1 10*3/uL 4.4 - 11.3 [facility] Work Phone: Laboratory - Microbiology an d Antimicrobial susceptibilityOrdered By: Dr. Dykes on 10-25-2022 Bacteria identified Cx Nom (Bld) No growth in 5 days. [facility] Lysozyme, Serumon 10-25-2022 Lysozyme [Mass/Vol] 9.0 ug/mL 2.5-12.9 [facility]- [facility] Work Phone: Comment on above: [...] Panel Informationon 10-25 0.0 {/100_WBC} 0.0-0.0 [facility] Work Phone: RENAL FUNCTION PANELon 10-25 Albumin [Mass/Vol] 3.3 g/dL Low 3.4 - 5.0 [facility] Comment on above: Performed By: #### U A #### [facility] [address] [place] [address] Anion gap [Moles/Vol] 13 mmol/L Normal 10 - 20 [facility] Comment on above: Performed By: #### U A #### [facility] [address] [place] [address] Calcium [Mass/Vol] 9.0 mg/dL Normal 8.6 - 10.6 [facility] Comment on above: Performed By: #### U A #### [facility] [address] [place] [address] Chloride [Moles/Vol] 101 mmol/L Normal 98 - 107 [facility] Comment on above: Performed By: #### U A #### [facility] [address] [place] [address] Creatinine [Mass/Vol] 1.09 mg/dL High 0.50 - 1.05 [facility] Comment on above: Performed By: #### U A #### [facility] [address] [place] [address] GFR/1.73 sq M.predicted among non-blacks MDRD (S/P/Bld) [Vol rate/Area] 58 mL/min/{1.73_m2} Abnormal >90 [facility] Comment on above: Result Comment: CALC ULATIONS OF ESTIMATED GFR ARE PERFORMED USING THE 2020 CKD-EPI STUDY REFIT EQUATION WITHOUT THE RACE VARIABLE FOR THE IDMS-TRACEABLE CREATININE METHODS. https://jasn.asnjournals.org/content/early//ASN.43618 05354 Performed By: #### U A #### [facility] [address] [place] [address] Glucose [Mass/Vol] 104 mg/dL High 74 - 99 [facility] Comment on above: Performed By: #### U A #### [facility] [address] [place] [address] HCO3 (Bld) [Moles/Vol] 25 mmol/L Normal 21 - 32 [facility] Comment on above: Performed By: #### U A #### [facility] [address] [place] [address] Phosphate [Mass/Vol] 4.3 mg/dL Normal 2.5 - 4.9 [facility] Comment on above: Result Comment: The performance characteristics of phosphorus testing in heparinized plasma have been validated by the individual laboratory site where testing is performed. Testing on heparinized plasma is not approved by the FDA; however, such approval is not necessary. Performed By: #### U A #### [facility] [address] [place] [address] Potassium [Moles/Vol] 3.7 mmol/L Normal 3.5 - 5.3 [facility] Comment on above: Performed By: #### U A #### [facility] [address] [place] [address] Sodium [Moles/Vol] 135 mmol/L Low 136 - 145 [facility] Comment on above: Performed By: #### U A #### [facility] [address] [place] [address] Urea nitrogen [Mass/Vol] 10 mg/dL Normal 6 - 23 [facility] Comment on above: Performed By: #### U A #### [facility] [address] [place] [address] RPR WITH TITER SYPHILIS ESTELLA TORINGon 10-25-2022 RPR MONITORING Canceled Normal [facility] Comment on above: Order Comment: TEST RPR WITH TITER SYPHILIS MONITORING WAS CANCELLED, 10/25/2022 00:46 RBS update.. Performed By: #### R PRSM #### [facility] [address] [place] [address] Lab Specimen Source Normal [facility] Comment on above: Order Comment: TEST RPR WITH TITER SYPHILIS MONITORING WAS CANCELLED, 10/25/2022 00:46 RBS update.. Performed By: #### R PRSM #### [facility] [address] [place] [address] Renal Function Panelon 10-25 Albumin BCP dye [...] [Moles/Vol] 25 mmol/L 21 - 32 [facility] Work Phone: [phone] Creatinine [Mass/Vol] 1.09 mg/dL above high threshold See Below [facility] Work Phone: [phone] Comment on above: Reference Range: 0.5 0 - 1.05 Glucose [Mass/Vol] 104 mg/dL above high threshold 74 - 99 [facility] Work Phone: Phosphate [Mass/Vol] 4.3 mg/dL 2.5 - 4.9 [facility] Work Phone: [phone] Comment on above: The performance bruce acteristics of phosphorus testing in heparinized plasma have been validated by the individual laboratory site where testing is performed. Testing on heparinized plasma is not approved by the FDA; however, such approval is not necessary. Potassium [Moles/Vol] 3.7 mmol/L 3.5 - 5.3 [facility] Work Phone: [phone] Sodium [Moles/Vol] 135 mmol/L below low threshold 136 - 145 [facility] Work Phone: [phone] Urea nitrogen [Mass/Vol] 10 mg/dL 6 - 23 [facility] Work Phone: [phone] Renal Function Panel 58 {mL/min/1.73m2} Abnormal >90 [facility] Work Phone: [phone] Comment on above: CALCULATIONS OF PAVAN MATED GFR ARE PERFORMED USING THE 2020 CKD-EPI STUDY REFIT EQUATION WITHOUT THE RACE VARIABLE FOR THE IDMS-TRACEABLE CREATININE METHODS.https://jasn.asnjournals.org/content///A SN.9152169624 SYPHILIS SCREENING WITH REFL EXon 10-25-2022 SYPHILIS TOTAL AB Non-Reactive Normal NONREACTIVE [facility] Comment on above: Result Comment: No s ignificant level of Treponema pallidum antibody detected. 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 Performed By: #### U A #### [facility] [address] [place] [address] Lab Specimen Source Normal [facility] Comment on above: Performed By: #### U A #### [facility] [address] [place] [address] T. pallidum IgG+IgM IA Ql (S) Non-Reactive See Below [facility] Work Phone: Comment on above: SOURCE: Reference Ra nge: NONREACTIVENo significant level of Treponema pallidum antibody detected. 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 VANCOMYCIN,TROUGHon 10-25-19 23 VANCOMYCIN,TROUGH 27.0 ug/mL Critically high 5.0 - 20.0 [facility] Comment on above: Order Comment: VANCT CALLED [...] WAGONER, 10/25/2022 17:09 Performed By: #### A [facility] #### [facility] [address] [place] [address] Vancomycin Level, Troughon 0 10-25-2022 Vancomycin trough [Mass/Vol] 27.0 ug/mL Critically high 5.0 - 20.0 [facility] Work Phone: Comment on above: Vancomycin levels sh ould be interpreted in conjunction with the dose, disease being treated, vancomycin AGNIESZKA, time of draw (trough concentrations should be obtained just before the next dose at steady-state), and other clinical information. Trough concentrations of 15-20 ug/mL are desired for severe infections. Ref.: Am J Health-Syst Pharm 66: 83-98, 2009.VANCT CALLED TO BRANDI WAGONER, 10/25/2022 17:09 Admission [...] AlertFor Ebola-like Symptoms: Isolate Patient and Notify Provider/Jointer Operator For Contact: Notify Provider/Jointer Operator Advance Directive: Advance Directive/DNRno Advance Directive Information Givenpatient/family declined [place] Fall Screen: History of falling (immediate or previous)no (0) Secondary Diagnosisno (0) Intravenous Therapy/ Heparin/Saline Lockyes (20) Gait/Transferringnormal/ bedrest/wheelchair (0) Ambulatory Aidsnone/bedrest/nurse assist (0) Mental Statusoriented [...] video; verbal instruction Cultural Considerationsnone Developmental Considerationsnone Sikh Considerationsnone Learning Assessment (Other Learner): Other learner availableno Depression Screen: During the past month, have you often been bothered by feeling down, depressed or hopelessno During the past month, have you often had little interest or pleasure in doing thingsno Have you had any thoughts of harming anyone elseno Boissevain Suicide: Risk Screen Not Applicable/Able to Answerable to be screened In the Past Month: Have you wished you were or could go to sleep and not wake upno In the Past Month: Have you had any actual thoughts of killing yourselfno Lifetime: Have you ever done, started to do, or prepared to do anything to end your lifeno Boissevain Suicide Risknegative Adult Nutrition Screen: Have you [...] Spiritual Screen: Are there any cultural, spiritual, orthodoxy practices/values/needs that are important for us to knowno CAGE: Is this an inju (more content not included)... Normal [facility] C Reactive Protein, Serumon 10-24-2022 CRP [Mass/Vol] 6.50 mg/dL Abnormal [facility] Work Phone: Comment on above: REF VALUE< 1.00 C-REACTIVE PROTEINon 023 C-REACTIVE PROTEIN 6.50 mg/dL Abnormal [facility] Comment on above: Result Comment: REF VALUE < 1.00 Performed By: #### U A #### [facility] [address] [place] [address] CBC AND DIFFERENTIALon 10-24 % AUTOMATED IMMATURE GRAN 0.5 % Normal 0.0 - 0.9 [facility] Comment on above: Result Comment: Iram ture Granulocyte Count (IG) includes promyelocytes, myelocytes and metamyelocytes but does not include bands. Percent differential counts (%) should be interpreted in the context of the absolute cell counts (cells/L). Performed By: #### C BCDF #### [facility] [address] [place] [address] Basophils (Bld) [#/Vol] 0.11 10*3/uL High 0.00 - 0.10 [facility] Comment on above: Performed By: #### C BCDF #### [facility] [address] [place] [address] Basophils/100 WBC (Bld) 1.1 % Normal 0.0 - 2.0 [facility] Comment on above: Performed By: #### C BCDF #### [facility] [address] [place] [address] Eosinophils (Bld) [#/Vol] 0.75 10*3/uL High 0.00 - 0.70 [facility] Comment on above: Performed By: #### C BCDF #### [facility] [address] [place] [address] Eosinophils/100 WBC (Bld) 7.2 % Normal 0.0 - 6.0 [facility] Comment on above: Performed By: #### C BCDF #### [facility] [address] [place] [address] Erythrocyte distribution width (RBC) [Ratio] 13.4 % Normal 11.5 - 14.5 [facility] Comment on above: Performed By: #### C BCDF #### [facility] [address] [place] [address] Hematocrit (Bld) [Volume fraction] 34.0 % Low 36.0 - 46.0 [facility] Comment on above: Performed By: #### C BCDF #### [facility] [address] [place] [address] Hemoglobin (Bld) [Mass/Vol] 11.4 g/dL Low 12.0 - 16.0 [facility] Comment on above: Performed By: #### C BCDF #### [facility] [address] [place] [address] Lymphocytes (Bld) [#/Vol] 1.67 10*3/uL Normal 1.20 - 4.80 [facility] Comment on above: Performed By: #### C BCDF #### [facility] [address] [place] [address] Lymphocytes/100 WBC (Bld) 16.0 % Normal 13.0 - 44.0 [facility] Comment on above: Performed By: #### C BCDF #### [facility] [address] [place] [address] MCHC (RBC) [Mass/Vol] 33.5 g/dL Normal 32.0 - 36.0 [facility] Comment on above: Performed By: #### C BCDF #### [facility] [address] [place] [address] MCV (RBC) [Entitic vol] 82 fL Normal 80 - 100 [facility] Comment on above: Performed By: #### C BCDF #### [facility] [address] [place] [address] Monocytes (Bld) [#/Vol] 1.19 10*3/uL High 0.10 - 1.00 [facility] Comment on above: Performed By: #### C BCDF #### [facility] [address] [place] [address] Monocytes/100 WBC (Bld) 11.4 % Normal 2.0 - 10.0 [facility] Comment on above: Performed By: #### C BCDF #### [facility] [address] [place] [address] Neutrophils (Bld) [#/Vol] 6.68 10*3/uL Normal 1.20 - 7.70 [facility] Comment on above: Performed By: #### C BCDF #### [facility] [address] [place] [address] Neutrophils/100 WBC (Bld) 63.8 % Normal 40.0 - 80.0 [facility] Comment on above: Performed By: #### C BCDF #### [facility] [address] [place] [address] NUCLEATED RBC 0.0 /100 WBC Normal 0.0-0.0 [facility] Comment on above: Performed By: #### C BCDF #### [facility] [address] [place] [address] Platelets (Bld) [#/Vol] 322 10*3/uL Normal 150 - 450 [facility] Comment on above: Performed By: #### C BCDF #### [facility] [address] [place] [address] RBC 4.16 x10E12/L Normal 4.00 - 5.20 [facility] Comment on above: Performed By: #### C BCDF #### [facility] [address] [place] [address] WBC (Bld) [#/Vol] 10.5 10*3/uL Normal 4.4 - 11.3 [facility] Comment on above: Performed By: #### C BCDF #### [facility] [address] [place] [address] COMPREHENSIVE PANELon 2022 Albumin [Mass/Vol] 3.6 g/dL Normal 3.4 - 5.0 [facility] Comment on above: Performed By: #### C MP #### [facility] [address] [place] [address] ALP [Catalytic activity/Vol] 107 U/L Normal 33 - 110 [facility] Comment on above: Performed By: #### C MP #### [facility] [address] [place] [address] ALT [Catalytic activity/Vol] 23 U/L Normal 7 - 45 [facility] Comment on above: Result Comment: Gretta ents treated with Sulfasalazine may generate falsely decreased results for ALT. Performed By: #### C MP #### [facility] [address] [place] [address] Anion gap [Moles/Vol] 15 mmol/L Normal 10 - 20 [facility] Comment on above: Performed By: #### C MP #### [facility] [address] [place] [address] AST [Catalytic activity/Vol] 26 U/L Normal 9 - 39 [facility] Comment on above: Performed By: #### C MP #### [facility] [address] [place] [address] Bilirubin [Mass/Vol] 0.3 mg/dL Normal 0.0 - 1.2 [facility] Comment on above: Performed By: #### C MP #### [facility] [address] [place] [address] Calcium [Mass/Vol] 9.2 mg/dL Normal 8.6 - 10.6 [facility] Comment on above: Performed By: #### C MP #### [facility] [address] [place] [address] Chloride [Moles/Vol] 103 mmol/L Normal 98 - 107 [facility] Comment on above: Performed By: #### C MP #### [facility] [address] [place] [address] Creatinine [Mass/Vol] 0.92 mg/dL Normal 0.50 - 1.05 [facility] Comment on above: Performed By: #### C MP #### [facility] [address] [place] [address] GFR/1.73 sq M.predicted among non-blacks MDRD (S/P/Bld) [Vol rate/Area] 72 mL/min/{1.73_m2} Normal >90 [facility] Comment on above: Result Comment: CALC ULATIONS OF ESTIMATED GFR ARE PERFORMED USING THE 2020 CKD-EPI STUDY REFIT EQUATION WITHOUT THE RACE VARIABLE FOR THE IDMS-TRACEABLE CREATININE METHODS. https://jasn.asnjournals.org/content//ASN.67232 38151 Performed By: #### C MP #### [facility] [address] [place] [address] Glucose [Mass/Vol] 95 mg/dL Normal 74 - 99 [facility] Comment on above: Performed By: #### C MP #### [facility] [address] [place] [address] HCO3 (Bld) [Moles/Vol] 25 mmol/L Normal 21 - 32 [facility] Comment on above: Performed By: #### C MP #### [facility] [address] [place] [address] Potassium [Moles/Vol] 4.1 mmol/L Normal 3.5 - 5.3 [facility] Comment on above: Performed By: #### C MP #### [facility] [address] [place] [address] Protein [Mass/Vol] 6.4 g/dL Normal 6.4 - 8.2 [facility] Comment on above: Performed By: #### C MP #### [facility] [address] [place] [address] Sodium [Moles/Vol] 139 mmol/L Normal 136 - 145 [facility] Comment on above: Performed By: #### C MP #### [facility] [address] [place] [address] Urea nitrogen [Mass/Vol] 9 mg/dL Normal 6 - 23 [facility] Comment on above: Performed By: #### C MP #### [facility] [address] [place] [address] Clinical Event Note-AH@H Scr eekenneth 10-24-2022 Clinical Event Note-AH@H Screen Clinical Event: Clinical Event Note: TopicAH@H Screen Details Patient was referred to AH@H program. Upon review with Provider and/or Social Assessment patient does not qualify for the program due to pt declined. Vicki Varela case packer Coordinator Electronic Signatures: Vicki Varela (CLIN COOR) (Signed 24-Oct-2022 15:07) Authored: Clinical Event Note Last Updated: 24-Oct-2022 15:07 by Vicki Varela (CLIN COOR) Normal [facility] Clinical Note - Pharmacy v2- Medication Educationon 10-24-2022 Clinical Note - Pharmacy v2-Medication Education Clinical Note - Pharmacy v2: Discharge Meds: Prescription Group Work Program Director Medications Home Medications Review Status for Reconciliation: Complete Med Status: Patient Currently Takes Medications Education: Document TopicMedication Education MedicationMeds to Beds: Patient declines Meds to Beds service at discharge. Sources used to confirm home medication list: Patient interview/ HIE [facility] 10/20/2022 Additional comments: Patient was recently discharged from [facility] on 10/23/2022. Creon dosage was confirmed with patient of 24,000 units 1 capsule 3 times a day with meals. Medication reconciliation complete Please reach out via Formotuso for questions Brandi Lr, ShondaD, Meds Meds Ambulatory and Retail Services Is This Intervention Medication Reconciliation Relatedyes Time [id number] - 60 minutes Additional NotesDrug Name: mirtazapine [...] 09:36 by Constance Buckley ([facility]) Normal [facility] Complete Blood Count + Diffe yamil 10-24-2022 Basophils/100 WBC (Bld) 1.1 % 0.0 - 2.0 [facility] Work Phone: Erythrocyte distribution width (RBC) [Ratio] 13.4 % See Below [facility] Work Phone: Comment on above: Reference Range: 11. 5 - 14.5 Hematocrit (Bld) [Volume fraction] 34.0 % below low threshold See Below [facility] Work Phone: Comment on above: Reference Range: 36. 0 - 46.0 Hemoglobin (Bld) [Mass/Vol] 11.4 g/dL below low threshold See Below [facility] Work Phone: Comment on above: Reference Range: 12. 0 - 16.0 Lymphocytes/100 WBC (Bld) 16.0 % See Below [facility] Work Phone: Comment on above: Reference Range: 13. 0 - 44.0 MCHC (RBC) [Mass/Vol] 33.5 g/dL See Below [facility] Work Phone: Comment on above: Reference Range: 32. 0 - 36.0 MCV (RBC) [Entitic vol] 82 fL 80 - 100 [facility] Work Phone: Monocytes/100 WBC (Bld) 11.4 % 2.0 - 10.0 [facility] Work Phone: Neutrophils/100 WBC (Bld) 63.8 % See Below [facility] Work Phone: Comment on above: Reference Range: 40. 0 - 80.0 Platelets (Bld) [#/Vol] 322 10*3/uL 150 - 450 [facility] Work Phone: RBC (Bld) [#/Vol] 4.16 {x10E12/L} See Below [facility] Work Phone: Comment on above: Reference Range: 4.0 0 - 5.20 WBC (Bld) [#/Vol] 10.5 10*3/uL 4.4 - 11.3 [facility] Work Phone: Complete Blood Count + Differential 0.11 {x10E9/L} above high threshold See Below [facility] Work Phone: Comment on above: Reference Range: 0.0 0 - 0.10 Complete Blood Count + Differential 0.75 {x10E9/L} above high threshold See Below [facility] Work Phone: Comment on above: Reference Range: 0.0 0 - 0.70 Complete Blood Count + Differential 1.19 {x10E9/L} above high threshold See Below [facility] Work Phone: Comment on above: Reference Range: 0.1 0 - 1.00 Complete Blood Count + Differential 1.67 {x10E9/L} See Below [facility] Work Phone: Comment on above: Reference Range: 1.2 0 - 4.80 Complete Blood Count + Differential 6.68 {x10E9/L} See Below [facility] Work Phone: Comment on above: Reference Range: 1.2 0 - 7.70 Complete Blood Count + Differential 7.2 % 0.0 - 6.0 [facility] Work Phone: Complete Blood Count + Differential 0.5 % 0.0 - 0.9 -[facility] Work Phone: Comment on above: Immature Granulocyte Count (IG) includes promyelocytes, myelocytes and metamyelocytes but does not include bands. Percent differential counts (%) should be interpreted in the context of the absolute cell counts (cells/L). Complete Blood Count + Differential 0.0 {/100_WBC} 0.0-0.0 [facility] [employer] Work Phone: Consult-ENTon 10-24-2022 Consult-ENT Service: Service: ENT Consult: Consult requested by (Attending Name): Tai Peoples Reason: 57 yo female coming [facility] as a transfer from [facility] for R eye evaluation for a cut-down biopsy of diffuse inflitration from the orbit into surroiunding tissue. Pt had an extensive work up at [facility] and [place] and rheumatologic or infectious causes were ruled [...] imaging. Pt noted to originally present to [facility] for 1 month of worseninig right eye pain/right headache/episodes of blurry and double vision without other symptoms. Denies eye trauma. Denies similar prior episodes. Denies nasal congestion/drainage. No inciting event. No relief with outpt antibiotics. At [facility] some improvement noted with antibiotics. Rheum c/s determined no rheum cause. Has not tried steroids yet. ENT at [facility] determined no need for biopsy at that [...] a 57 year old female transferred from OSH for evaluation by oculoplastics here for biopsy right periorbital process, consulted for ENT evaluation/consideration for biopsy of said process. - Given disease process location, process may be more amenable to biopsy approach by oculoplastics - Pt seen and d/w Dr. Alonso who agrees with plan - Thank you for involving us in the care of this patient Fortino Mathews DO, PGY2 Adult Service Pager: [phone] Peds Service Pager: [phone] [phone]. Review Family/Social History and ROS: Social History: Smoking Status: unable to assess (1) Alcohol Use: denies(1) Drug Use: denies (1) Allergies: penicillin: Hives/Urticaria Consult Status: Consult Order ID: [id number] Attestation: Note Completion: I am a: Resident/Fellow [...] the note. I personally evaluated the patient [id number] Electronic Signatures: Fortino Mathews (DO (R (more content not included)... Normal [facility] Consult-Infectious Diseaseon 10-24-2022 Consult-Infectious Disease Service: Service: Infectious Disease Consult: Consult requested by (Attending Name): Tai Peoples Reason: 57 year old woman who is presenting as a transfer to [facility] from [facility] for further management of preseptal cellulitis vs. infiltrative process of her right eye seen on MRI orbit. ID at [facility] recommended Vanc/zosyn History of Present Illness: HPI: GRACIE BANUELOS is a 57 year old woman pmhx sig for COPD, HTN, transferred from [facility] on 10/23 for inflammatory eye disease/possible preseptal cellulitis. HPI per notes and pt. Pt reports ~1 mos R eye redness, swelling and pain. Was treated by outpt eye doctor w/ azithromycin x 5 days on 10/17. Presented to [facility]. Given 1 dose clindamycin and transferred to [facility]. Admits to having fever and chills prior to [facility] admission, but describes them as sweats which [...] candles. Never had this before. 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 Normal [facility] Consult-Ophthalmologyon 09-29 Consult-Ophthalmology Service: Service: Ophthalmology Consult: Consult requested by (Attending Name): Tai Peoples Reason: 57 yo female coming as a transfer from [facility] for R eye evaluation for oculoplastic need for a cut-down biopsy of diffuse inflitration from the orbit into surroiunding tissue. Pt had an extensive work up at [facility] and [place] and rheumatologic or infectious causes were ruled [...] progressed. On 10/19/22 she presented to the [facility] and CT orbits showed findings concerning for right orbital cellulitis. WBC was reportedly 13.9, ESR 75, and CRP 42.6. She was prescribed clindamycin to take at home, but her pain only worsened and she presented to [facility] 10/[facility]22 for further management. MRI orbits [...] Full to count fingers OU Color vision: / OU ANTERIOR SEGMENT: OD: Lids/Lashes: trace RUL [...] CT Orbit Sella Inner[facility]: 1. Marked abnormality of the soft [...] which I personally reviewed, by report from [employer] shows Abnormal infiltration throughout the right retroantral and extraconal fat as well as the pterygopalatine fossa and diffusely throughout the right fruit buyer space with asymmetry of the muscles of mastication. Additional mild enlargement of the right inferior and lateral rectus. These findings are highly concerning for invasive fungal sinusitis until proven otherwise. Mild as (more content not included)... Normal [facility] Discharge Planning [id number] 0 10-24-2022 Discharge Planning Note2 Discharge Planning: Needs Prior to Discharge (ex. Home Care Orders, IV/O2 prescriptions) f/u appts Discharge Barriersnone Planned Dispositionhome Discharge DestinationHome with family vs HC if IV abx needed AMPAC < 20no Anticipated Discharge [id number] Discharge Planning 10/23/22-Admission [id number] arrived to unit from [facility] via stretcher per community care in stable [...] Await ID reccs; opthalmology on board. Payer: [facility] Status: inpatient Discharge disposition: HC RN if IV abx needed. Potential Barriers: none ADOD: 10/29 Vicki Varela RNcase packer Coordinator Assessment: Discharge Planning Assessment [id number] Discharge Planning Assessment Completed byVicki Varela RNcase packer Coordinator Primary Contact Name and NumberTina Augustine (sister)-[phone] Prior Level of Functioningind with ADLS Lives Withadult child(rama); dependent child(rama); daughter and granddaughter Living Arrangementshouse PCPJoy Older [facility] [place] Recent Falls/ Injury/ Need Assist with Ambulationdenies Equipment Currently Used at [facility] DME Supplier Name/Numbern/a Home Care Agency/Support Servicesn/a Diabetic/Supplies Neededn/a Hemodialysis Schedulen/a [facility] Anticipated at Transitionnone PCP Last Date Seencouple months ago [employer] Equipment Needed After Dischargenone Anticipated Discharge Facility/Level of Care Needs.Home Discharge Planning CommentsPt has transportation to medical appointments, feels safe at home. Address, phone and emergency contact information verified. All questions and concerns answered. Will continue to follow for discharge needs. Vicki Varela RNcase packer Coordinator Social Determinants of Health Identifiedpast hx of ETOH use Transportation Home Who/Howsister Medication Adherence/Afford/Obtainy es Home O2/BiPAP/CPAPHome O2 O2 LPM2L NC PRN Home O2 SupplierDasko Discharge Documentation: Code StatusCode Status order at time of discharge: Full Code Electronic Signatures: Vicki Varela (CLIN COOR) (Signed 30-Gallo-2023 13:57) Authored: Discharge Planning, Assessment, Discharge Documentation Humberto Arriaga (RN) (Signed 24-Oct-2022 00:15) Authored: Discharge Planning, Assessment Last Updated: 27-Oct-2022 13:57 by Vicki Varela (CLIN COOR) Normal [facility] Discharge [id number] Discharge Profile2 Discharge Orders: Anticipated Discharge Date: Anticipated Discharge [id number] DNAR: Code Status at Discharge: Full Code Activity: activity as tolerated. Diet: Dietregular Labs 1: Lab Test(s)RFP Date To Be Drawn10/30/22 Call Results ToSoila Easton CNP or Fax Results [phone] CommentsPCP consider monitoring improvement of CHUY upon recent hospital admission Oxygen: Administer oxygen at 2 liters/min via nasal cannula to maintain SpO2 % of 88-92 with activity. Additional Orders: Additional Instructions Dear Ms. Banuelos, You presented to us as transfer from [facility] for a possible biopsy of the right [...] vs. infiltrative mass. Vanc/zosyn were started at [facility]. Oculoplastic were consulted and there was a [...] at 29-Oct-2022 12:36:26 Appointments: Follow-Up Appointment 01: Physician/Dept/ServicePr imary:Lalito Hoskins MD Reason for ReferralEstablish with Primary Care Provider Scheduled Date/[id number] 16:[id number] [place] [address], [address] [address] fax Phone [phone] CommentsPlease bring your insurance card, photo id, a list of medication in the original bottle, any co-pays you may have, and the discharge summary Follow-Up Appointment 02: Physician/Dept/YaelOp hthalmology: Dr Ortega Scheduled Date/[id number] 15:30 [facility] [address] , [address] [facility] [address] CommentsPlease bring your insurance card, photo id, a list of medication in the original bottle, any co-pays you may have, and the discharge summary Follow-Up Appointment 03: Physician/Dept/ServiceCathryn y OlderIGOR Call to Schedule inPatient is to call upon discharge and schedule follow up for Thursday10/31/[id number] [place] [id number] or Electronic Signatures: Annie Escobedo (PT ACC REP) (Signed 28-Oct-2022 09:45) Authored: Discharge Orders, Appointments Justyn Richter (Resident)) (Signed 29-Oct-2022 11:30) Authored: Discharge Orders, Hospital Course (Home Care/Gold Form), Provider FINAL REVIEW of Orders Katina Booker (TRANSMISSIONS SYSTEMS OPERATOR-LEGAL EXECUTIVE ASSISTANT) (Signed 28-Oct-2022 09:22) Authored: Discharge Orders, Provider FINAL REVIEW of Orders, Gold Form - Dietitian Consultant Summary Donn Trammell (Resident)) (Signed 29-Oct-2022 12:36) Authored: Discharge Orders, Hospital Course (Home Care/Gold Form), Provider FINAL REVIEW of Orders, Appointments Last Updated: 29-Oct-2022 12:36 by Donn Trammell ( (Resident)) Normal [facility] Electrocardiogram 12 Leadon 10-24-2022 Electrocardiogram 12 Lead Ventricular Rate 82 Atrial Rate 82 P-R Interval 168 QRS Duration 74 Q-T Interval 394 QTC Calculation(Bazett) 460 P Dunnellon 50 R Dunnellon 76 T Dunnellon 79 QRS Count 14 Q Onset 233 P Onset 149 P Offset 196 T Offset 430 QTC Fredericia 437 Diagnosis Class Abnormal Diagnosis Normal sinus rhythm Anterior infarct , age undetermined Abnormal ECG No previous ECGs available Confirmed by Dinesh Najera ([id number]) on 10/24/2022 11:13:15 AM Normal [facility] Laboratory - Chemistry and C hemistry - challengeon 10-24-2022 Albumin BCP dye [Mass/Vol] 3.6 g/dL 3.4 - 5.0 [facility] Work Phone: ALP [Catalytic activity/Vol] 107 U/L 33 - 110 [facility] [employer] Work Phone: ALT With P-5'-P [Catalytic activity/Vol] 23 U/L 7 - 45 [facility] Work Phone: Comment on above: Patients treated wit h Sulfasalazine may generate falsely decreased results for ALT. Anion gap [Moles/Vol] 15 mmol/L 10 - 20 [facility] Work Phone: AST With P-5'-P [Catalytic activity/Vol] 26 U/L 9 - 39 [facility] [place] Work Phone: [phone] Bilirubin [Mass/Vol] 0.3 mg/dL 0.0 - 1.2 [facility] mack [facility]en [facility] Work Phone: Calcium [Mass/Vol] 9.2 mg/dL 8.6 - 10.6 [facility] [place] Work Phone: Chloride [Moles/Vol] 103 mmol/L 98 - 107 [facility] edrigoberto Yuen [facility] Work Phone: CO2 [Moles/Vol] 25 mmol/L 21 - 32 [facility] [place] Work Phone: Creatinine [Mass/Vol] 0.92 mg/dL See Below [facility] Ulices Yuen Giang Work Phone: [phone] Comment on above: Reference Range: 0.5 0 - 1.05 Glucose [Mass/Vol] 95 mg/dL 74 - 99 [facility] rigoberto Yune Giang Work Phone: [phone] Potassium [Moles/Vol] 4.1 mmol/L 3.5 - 5.3 [facility] [place] Work Phone: Protein [Mass/Vol] 6.4 g/dL 6.4 - 8.2 [facility] rigoberto Yu[facility] [place] Work Phone: Sodium [Moles/Vol] 139 mmol/L 136 - 145 [facility] rigoberto [facility] [place] Work Phone: [phone] Urea nitrogen [Mass/Vol] 9 mg/dL 6 - 23 [facility] [place] Work Phone: [phone] MAGNESIUMon 10-24-2022 Magnesium [Mass/Vol] 1.75 mg/dL Normal 1.60 - 2.40 [facility] [place] Comment on above: Performed By: #### V ANCU #### [facility] [address] [place] [address] Magnesium, Serumon 01-27-202 3 Magnesium [Mass/Vol] 1.75 mg/dL See Below MG-M edicine- Wilfrid Rahat Work Phone: Comment on above: Reference Range: 1.6 0 - 2.40 No Panel Informationon 10-24 72 {mL/min/1.73m2} >90 MG-Med icine- Wilfrid Giang Work Phone: Comment on above: CALCULATIONS OF PAVAN MATED GFR ARE PERFORMED USING THE 2020 CKD-EPI STUDY REFIT EQUATION WITHOUT THE RACE VARIABLE FOR THE IDMS-TRACEABLE CREATININE METHODS.https://jasn.asnjournals.org/content//A SN.9358576582 https://MUSEXPRDWE B01: 8080/musescripts/museweb .dll?RetrieveTestByDateT ryan?CvekjdhLW=[id number]& Date=24-10-2022&Time=06% 3a25%3a35%3a00&TestType= ECG&Site=1&OutputType=PD F&Ext=PDF MG-Medicine- Wilfrid Rahat Work Phone: Normal sinus rhythm MG-Me dicine- Wilfridjodi Giang Work Phone: Abnormal MG-Medicine- Wilfrid Rahat Work Phone: [phone] MG-Medicine- Wilfrid Rahat Work Phone: [phone] MG-Medicine- Wilfrid Rahat Work Phone: 196 1 MG-Medicine- Wilfrid Rahat Work Phone: 149 1 MG-Medicine- Wilfrid Rahat Work Phone: 233 1 MG-Medicine- Wilfrid Rahat Work Phone: 14 1 MG-Medicine- Wilfrid Rahat Work Phone: 79 1 MG-Medicine- Wilfrid Rahat Work Phone: 76 1 MG-Medicine- Wilfrid Rahat Work Phone: 50 1 MG-Medicine- Wilfrid Rahat Work Phone: 460 1 MG-Medicine- Wilfrid Giang Work Phone: [phone] 1 MG-Medicine- Wilfrid Giang Work Phone: 74 1 MG-Medicine- Wilfrid Giang Work Phone: 168 1 MG-Medicine- Wilfrid Giang Work Phone: 82 1 MG-Medicine- Wilfrid Giang Work Phone: Order Reconciliationon 10-24 Order Reconciliation Page 1 Discharge Reconciliation Document Reconciliation Type: Discharge requested on behalf of Katina Booker (Advanced Practice Nurse-Admit) done by Katina Booker ([facility]) Discharge - Partial Reconciliation: 24-Oct-2022 08:06 by: Katina Booker ([facility]) Discharge - Partial Reconciliation: 27-Oct-2022 06:53 by: Katina Booker ([facility]) Discharge - Partial Reconciliation: 27-Oct-2022 07:55 by: Katina Booker ([facility]) Discharge - Partial Reconciliation: 27-Oct-2022 13:27 by: Katina Booker ([facility]) Discharge - Partial Reconciliation: 28-Oct-2022 07:04 by: Katina Booker ([facility]) Discharge - Reconciliation: 28-Oct-2022 07:09 by: Katina Booker ([facility]) Discharge - Reset to Incomplete: 28-Oct-2022 07:11 by: Katina Booker ([facility]) Discharge - Reconciliation: 28-Oct-2022 07:11 by: Katina Booker ([facility]) Discharge - Reset to Incomplete: 28-Oct-2022 09:07 by: Katina Booker ([facility]) Discharge - Partial Reconciliation: 28-Oct-2022 09:08 by: Katina Booker ([facility]) Discharge - Reconciliation: 28-Oct-2022 09:08 by: Katina Booker ([facility]) Discharge - Reset to Incomplete: 28-Oct-2022 09:09 by: Katina Booker ([facility]) Discharge - Reconciliation: 28-Oct-2022 09:16 by: Katina Booker ([facility]) Discharge - Reset to Incomplete: 28-Oct-2022 10:10 by: Donn Trammell ( (Resident)) Discharge - Reconciliation: 28-Oct-2022 10:16 by: Donn Trammell ( (Resident)) Discharge - Reset to Incomplete: 28-Oct-2022 11:05 by: Noemí Asif ( (Resident)) Discharge - Partial Reconciliation: 28-Oct-2022 11:06 by: Noemí Asif ( (Resident)) Discharge - Reconciliation: 28-Oct-2022 11:08 by: Katina Booker ([facility]) Discharge - Reset to Incomplete: 29-Oct-2022 07:20 by: Katina Booker ([facility]) Discharge - Partial Reconciliation: 29-Oct-2022 07:21 by: Katina Booker ([facility]) Discharge - Reconciliation: 29-Oct-2022 08:21 by: Katina Booker ([facility]) Discharge - Reset to Incomplete: 29-Oct-2022 11:27 by: Katina Booker ([facility]) Discharge - Reconciliation: 29-Oct-2022 11:31 by: Katina Booker ([facility]) Discharge - Reset to Incomplete: 29-Oct-2022 13:31 by: Katina Booker ([facility]) Discharge - Reconciliation: 29-Oct-2022 13:34 by: Katina Booker ([facility]) Home Medications EnteredHOME MEDICATIONS AT DISCHARGE DateReconciliation [...] 2 inha (more content not included)... Normal [facility] [place] [facility] Order Reconciliation Page 1 Admission Reconciliation Document [...] Notes: Was receiving vancomycin 1,250mg q12h at [facility], last dose given 1700 on 10/23. Vancomycin trough 17.4 obtained 10/23 16:19 Normal [facility] [place] [facility] Patient Profile - Adult v2on 10-24-2022 Patient Profile - Adult v2 Profile: Initial Info: How to be AddressedConnie Spoken Language PreferredEnglish Stated Reason for Admissioneye cellulitis Wants Family/Rep Notified of Admissionno Notify PCPnotify PCP Informed of Patient Visiting Rightsyes Limitations on Visitors/Phone Callsnone [facility] Patient Belongings Remaining with Patientclothing; cell phone/electronics Medications Brought to Hospitalno General Health: Weight in kg60.1 kilogram(s)(1) Weight in kqn263.4 pound(s) Weight Methodactual (measured) Scale Typebed Height [...] Managementmanaged Relationship/Environ: Resource/Environmental Concernsnone Primary Source of Support/Comfortchild(rama ) Lives Withadult child(rama) Living Arrangementshouse Services Anticipated at Transitionnone Anticipated Transition Tohome Significant IndicatorsComplete Information Review: Allergies, Home Meds and Significant Events have been Reviewed and Verified with Patient/Familyyes ALLERGY, INTOLERANCE, ADVERSE EVENT: Allergies: penicillin: Drug, Sep 1974, Hives/Urticaria, Active Electronic Signatures: Humberto Arriaga (SRAWAT) (Signed 24-Oct-2022 06:32) Authored: Initial Info, General Health, RSP Based Care, Substance, Health Mgmt, Relationship/Environ, Additional Information Last Updated: 24-Oct-2022 06:32 by Humberto Arriaga (SARWAT) References: 1. Data Referenced From 1. Vital Signs 24-Oct-2022 00:05 2. Data Referenced From History and Physical 24-Oct-2022 02:31 Normal [facility] [place] [facility] SEDIMENTATION RATE, ERYTHROC YTEon 10-24-2022 SEDIMENTATION RATE, ERYTHROCYTE 80 mm/h High 0 - 30 [facility] [place] [facility] Comment on above: Performed By: #### V ANCU #### [facility] [address] [place] [address] Sedimentation Rate, Erythroc yteon 10-24-2022 ESR (Bld) [Velocity] 80 mm/h above high threshold 0 - 30 MG-Medicine- Wilfrid Giang Work Phone: T-SPOT. TBon 10-24-2022 T-SPOT. TB Passed [employer] Giang Work Phone: T-SPOT. TB 0 1 [employer] Gi[employer] Work Phone: T-SPOT. TB Negative See Below [employer] Giang Work Phone: Comment on above: Reference [...] 10-23-2022 MYELOPEROXIDASE < 0.2 Normal <1.0 [facility] Comment on above: Performed By: #### A NCA ROCHA VAS #### [facility] [address] [place] [address], MYELOPEROXIDASE INTERPRETATION Negative Normal Negative [facility] Comment on above: Performed By: #### A NCA ROCHA VAS #### [facility] [address] [place] [address], PROTEINASE-3 < 0.2 Normal <1.0 [facility] Comment on above: Performed By: #### A NCA ROCHA VAS #### [facility] [address] [place] [address], PROTEINASE-3 INTERPRETATION Negative Normal Negative [facility] Comment on above: Performed By: #### A NCA ROCHA VAS #### [facility] [address] [place] [address], C-REACTIVE PROTEINon 023 CRP 4.6 mg/dL High <0.8 [facility] Comment on above: Performed By: #### T SH HS, T3, CRP #### [facility] [address], [place], CLOSTRIDIUM DIFFICILEon 09-29 CLOSTRIDIUM DIFFICILE Negative Normal Negative [facility] Comment on above: Order Comment: Resul ts obtained by using a real-time PCR based qualitative in vitro diagnostic test for the direct detection of the C. difficile toxin A gene (tcdA) and toxin B gene (tcdB) targets in stool specimens.Results should be interpreted in conjunction with information from the patient clinical evaluation and other diagnostic testing Performed By: #### C DD ####[facility] [id number], [place] Care Plan Noteon 10-23-2022 [employer] Authentication Interface Message Text [facility] wait time is extensive per transfer. I spoke with pt and Domonique - they are agreeable to pursue . Please initiate transfer to Orbital surgery for biopsy Pt is accepted to [facility] by Dr. Jannette Eid, pending bed availability. However, as there is extensive wait time for the bed will initiate transfer. Normal [facility] [employer] Authentication Interface Message Text Problem: Routine Care: [...] and/or be maintained Outcome: Progressing Normal [facility] ERYTHROCYTE SEDIMENTATION RA Km 10-23-2022 ESR (Bld) [Velocity] 53 mm/h High <=30 [facility] Comment on above: Performed By: #### C OVID19 #### [facility] [address], [place], IMMUNOGLOBULIN Sudeep IgG [Mass/Vol] 842 mg/dL Normal 768-1632 [facility] Comment on above: Performed By: #### C OVID19 #### [facility] [address], [place], NOVEL CORONAVIRUS (COVID-19) on 10-23-2022 SARS-CoV-2 (COVID-19) RNA KANDY+probe Ql (Unsp spec) Not detected Normal Not Detected [facility] Comment on above: Order Comment: Not D etected results are indicative of the absence of SARS-CoV-2 in the specimen submitted for testing. False negative results are possible based on the timing and quality of specimen submitted for testing. This test is intended for use only under Emergency Use Authorization (EUA). This test was developed, and its performance characteristics determined by [facility] which is certified under CLIA as qualified to perform high complexity clinical laboratory testing. Result Comment: This assay was performed using Emeli GISELLE RTPCR technology. Performed By: #### C OVID19 #### [facility] [address], [place], Progress Noteson 10-23-2022 [employer] Authentication Interface Message Text 2330 Transferred to via ambulette Normal [facility] Authentication Interface Message Text 2119 Received a call from that patient has a bed held for her. She will be going to [facility], [place] [address], Bed 0271. Requesting copy of chart to accompany pt. Call nursing report to [phone]. UNA Thurman-IGOR notified. 2148 Ambulance request placed. Patient notified. Chart being prepped by [facility] [facility]. 2330 Report called SARWAT Pastrana. Pt transported via ambulette with all belongings. Pt updated her family of her transfer. Normal The [employer] [employer] Authentication Interface Message Text Pharmacokinetic Dosing Service - VANCOMYCIN Name: Gracie Banuelos Age:[age] year old Gender: female Ht: 5' 3 Wt: no weight Indication: orbital cellulitis/COMMERCIAL ANNOUNCER (?) Desired Ranges: 15-20 Day of therapy: 4 Assessment and Recommendations: 10/23/22 PLAPPONI- Day4: orbital cellulitis/COMMERCIAL ANNOUNCER (?) ; Renal function: stable; Current level:17.4. [...] Source/Reason for Therapy Answer: Central Nervous System (COMMERCIAL ANNOUNCER) -- 10/20/221652 vancomycin dosing pharmacy consult Other, As Directed Question: Suspected Source/Reason for Therapy Answer: Central Nervous System (COMMERCIAL ANNOUNCER) -- Lab Values: Creatinine Date Value Ref Range Status 10/20/2022 0.56 0.50 - 1.10 mg/dL Final Lab Results Component Value Date/Time VANCTR 17.4 10/23/2022 04:19 PM VANCTR 16.6 10/21/2022 03:44 PM No results found for: VANCR Serum creatinine: 0.56 mg/dL 10/20/22 0910 Estimated creatinine clearance: 89.48 mL/min Culture(s): FRIEDA ANDERSON, [facility] - Department of Pharmacy Services Normal [facility] [employer] Authentication Interface Message Text CM aware of transfer process that has begun to [facility]. CM will remain available to assist with discharge planning and needs as warranted. Katina GALLOWAY, integrity director (8:30-4:00) Normal [facility] [employer] Authentication Interface Message Text Daily follow up visit VA 20/30PH 2025 20/40 PH 20/30 No APD Color plates 15/16 OU External OD notable for Entropion - spastic Boggy conjunctiva +1 edema OD OD EOM -1 supraduction and -2 infraduction Full OS Hertels 18 at 116 today 10/23/22 1. Periorbital/orbital inflammation, [...] caruncular edema on slit lamp exam.Hertels stable at 116 today - Ddx: orbital malignancy, [...] Syphilis Tb - Recommend transfer to or [facility] for oculoplastics care. The patient will [...] Plan discussed with Dr. Kidd Normal [facility] [employer] Authentication Interface Message Text ID FOLLOW UP [...] IV -Ophthalmology on board. Awaiting transfer to [facility] or for oculoplasty and biopsy to determine etiology due to concern for infiltrative process. -Consider repeat MRI orbit to reassess if transfer is delay. -Continue to monitor BM as she has diarrhea. Noted Cdiff negative. -Ok to remove contact precautions. ID will continue to follow Findings and recommendations discussed with Dr. Oliveira. Car Dorado MD ID fellow, [id number] Pager: [phone] Normal [facility] RHEUMATOID FACTORon 10-23-19 23 RHEUMATOID FACTOR < 10 Normal <10 [facility] Comment on above: Performed By: #### C OVID19 #### [facility] [address] [place] [address], SYPHILIS WITH CONFIRMATIONon 10-23-2022 SYPHILIS TOTAL (IGG/IGM) Non-Reactive Normal Non-Reactive [facility] Comment on above: Order Comment: Not D etected results are indicative of the absence of SARS-CoV-2 in the specimen submitted for testing. False negative results are possible based on the timing and quality of specimen submitted for testing. This test is intended for use only under Emergency Use Authorization (EUA). This test was developed, and its performance characteristics determined by [facility] which is certified under CLIA as qualified to perform high complexity clinical laboratory testing. Performed By: #### C OVID19 #### [facility] [address], [place], TPPA Normal [facility] Comment on above: Order Comment: Not D etected results are indicative of the absence of SARS-CoV-2 in the specimen submitted for testing. False negative results are possible based on the timing and quality of specimen submitted for testing. This test is intended for use only under Emergency Use Authorization (EUA). This test was developed, and its performance characteristics determined by [facility] which is certified under CLIA as qualified to perform high complexity clinical laboratory testing. Performed By: #### C OVID19 #### [facility] [address] [place] [address], TRIIODOTHYRONINE (T3)on 09-29 T3 135.6 ng/dL Normal 87.0-179.0 [facility] Comment on above: Performed By: #### T SH HS, T3, CRP #### [facility] [address] [place] [address], TSHon 10-23-2022 TSH 3.964 uIU/mL Normal 0.450-5.330 [facility] Comment on above: Result Comment: Refe ludin range for women as applicable: First Trimester: 0. 050 to 3.700 uIU/mL Second Trimester: 0. 310 to 4.350 uIU/mL Third Trimester: 0. 410 to 5.180 uIU/mL Performed By: #### T SH HS, T3, CRP #### [facility] [address] [place] [address], Telephone Encounteron 2022 [employer] Authentication Interface Message Text Spoke to Domonique, pt sister Explained rationale for biopsy and transfer All questions answered Normal [facility] [employer] Authentication Interface Message Text PT's sister, Domonique calling in stating Dr. Aggarwal called and LVM for her regarding her sister that is inpatient. Please call Domonique back to discuss her sister Dx's [phone] ( PT will be home until 2:30 pm) Normal [facility] VANCOMYCIN TROUGHon 10-23-19 23 VANC TR 17.4 ug/mL Normal 10.0-20.0 [facility] Comment on above: Performed By: #### V ANC TR #### [facility] [address] [place] [address], CBC WITH DIFFERENTIALon 09-29 Basophils (Bld) [#/Vol] 0.12 10*3/uL Normal 0.00-0.20 [facility] Comment on above: Performed By: #### C HALIMADSAT ####[facility] PATHOLOGY [id number] [place], [place], Basophils/100 WBC (Bld) 0.7 % Normal <=1.9 [facility] Comment on above: Performed By: #### C JANINAAT ####[facility] PATHOLOGY [id number] [place] [address], Eosinophils (Bld) [#/Vol] 0.54 10*3/uL Normal 0.00-0.70 [facility] Comment on above: Performed By: #### C AJNINAAT ####[facility] PATHOLOGY [id number] [place] [address], Eosinophils/100 WBC (Bld) 3.4 % Normal 0.1-4.0 [facility] Comment on above: Performed By: #### C JANINAAT ####[facility] PATHOLOGY [id number] [place] [address], Erythrocyte distribution width (RBC) [Ratio] 14.1 % Normal 11.5-14.5 [facility] Comment on above: Performed By: #### C BCMIGNONAT ####[facility] PATHOLOGY [id number] [place], [place], Hematocrit (Bld) [Volume fraction] 35.3 % Low 36.0-46.0 [facility] Comment on above: Performed By: #### C JANINAAT ####[facility] PATHOLOGY [id number] [place], [place], Hemoglobin (Bld) [Mass/Vol] 11.4 g/dL Low 12.0-15.0 [facility] Comment on above: Performed By: #### C BCDSAT ####[facility] PATHOLOGY [id number] [place] [address], Lymphocytes (Bld) [#/Vol] 2.11 10*3/uL Normal 1.00-4.80 [facility] Comment on above: Performed By: #### C BCDSAT ####[facility] PATHOLOGY [id number] [place], [place], Lymphocytes/100 WBC (Bld) 13.2 % Low 24.0-44.0 [facility] Comment on above: Performed By: #### C BCDSAT ####[facility] PATHOLOGY [id number] [place], [place], MCH (RBC) [Entitic mass] 27.4 pg Normal 26.0-34.0 [facility] Comment on above: Performed By: #### C BCDSAT ####[facility] PATHOLOGY [id number] [place], [place], MCHC (RBC) [Mass/Vol] 32.3 g/dL Normal 32.0-35.9 [facility] Comment on above: Performed By: #### C BCDSAT ####[facility] PATHOLOGY [id number] [place], [place], MCV (RBC) [Entitic vol] 85 fL Normal 80-100 [facility] Comment on above: Performed By: #### C BCDSAT ####[facility] PATHOLOGY [id number] [place], [place], MONOCYTE DISTRIBUTION WIDTH Normal [facility] Comment on above: Performed By: #### C BCDSAT ####[facility] PATHOLOGY [id number] [place], [place], Monocytes (Bld) [#/Vol] 1.11 10*3/uL High 0.20-1.00 [facility] Comment on above: Performed By: #### C BCDSAT ####[facility] PATHOLOGY [id number] [place], [place], Monocytes/100 WBC (Bld) 7.0 % Normal 2.0-11.0 [facility] Comment on above: Performed By: #### C BCDSAT ####[facility] PATHOLOGY [id number] [place], [place], Neutrophils (Bld) [#/Vol] 12.11 10*3/uL High 1.50-8.00 [facility] Comment on above: Performed By: #### C BCDSAT ####S PATHOLOGY [id number] [place], [place], Neutrophils/100 WBC (Bld) 75.7 % Normal 31.0-76.0 [facility] Comment on above: Performed By: #### C BCDSAT ####S PATHOLOGY [id number] [place], Platelet mean volume (Bld) [Entitic vol] 8.0 fL Normal 7.5-11.2 [facility] Comment on above: Performed By: #### C BCDSAT ####S PATHOLOGY [id number] [place], [place], Platelets (Bld) [#/Vol] 332 10*3/uL Normal 150-400 [facility] Comment on above: Performed By: #### C BCDSAT ####[facility] PATHOLOGY [id number] [place], [place], RBC (Bld) [#/Vol] 4.16 10*6/uL Normal 4.00-5.20 [facility] Comment on above: Performed By: #### C BCDSAT ####S PATHOLOGY [id number] [place], WBC (Bld) [#/Vol] 16.0 10*3/uL High 4.5-11.5 [facility] Comment on above: Performed By: #### C BCDSAT ####S PATHOLOGY [id number] [place], [place], Care Plan Noteon 10-22-2022 [employer] Authentication Interface Message Text Ophthal called me and recommended transfer to [facility] for Oculoplastic Orbital surgery for biopsy Patient requested me to talk with her sister, Domonique who is a HCW. I discussed the above recommendations and she preferred [facility] transfer. Will initiate the process tomorrow. Normal [facility] Authentication Interface Message Text Problem: Routine Care: [...] will be met Outcome: Progressing Normal [facility] Progress Noteson 10-22-2022 [employer] Authentication Interface Message Text -------- Attestation signed by Suha Oliveira MD at [...] given her clinical improvement. Suha Oliveira MD -------- ID FOLLOW UP INTERVAL HISTORY: Patient is concern about possible malignancy and is on the phone with family. Per chart review she remains afebrile. Ophthalmology recommended transfer to [facility] or for oculoplasty due to concern [...] (10/21) -Ophthalmology on board. Recommended transfer to [facility] or for oculoplasty and biopsy to determine etiology due to concern for infiltrative process. ID will continue to follow Findings and recommendations discussed with Dr. Oliveira. Car Dorado MD ID fellow, [id number]-[id number] Pager: [phone] Normal [facility] [employer] Authentication Interface Message Text Teaching Physician Note: [...] to orbital surgeon for biopsy: O-P at [facility] or Uri Peña MD Normal [facility] [employer] Authentication Interface Message Text Daily follow up [...] that did not have beds, sent to [facility] for possible admission for orbital cellulitis [...] the pterygopalatine fossa; unclear etiology - Hertels 18/15 at 116 today - Today's exam is [...] from ENT - Recommend transfer to or [facility] for oculoplastics care. The patient will [...] discussed with Dr. Kidd and Normal [facility] Care Plan Noteon 10-21-2022 [employer] Authentication Interface Message Text Problem: Routine Care: [...] will be met Outcome: Progressing Normal [facility] [employer] Authentication Interface Message Text Problem: Routine Care: [...] will be met Outcome: Progressing Normal [facility] Consultson 10-21-2022 [employer] Authentication Interface Message Text -------- Attestation signed by Suha Oliveira MD at [...] for invasive fungal infection. Suha Oliveira MD -------- INITIAL VISIT/CONSULT Referred by: Robby Bush MD [...] pertinent surgical history. Allergies: Allergies Allergen Reactions [place] [Acetaminophen-Hydrocodo ne] Penicillins Medications: Current Facility-Administered Medications Medication Dose [...] nebulizer solution 2.5 mg Nebulization Q4H PRN [NOV Hold] ipratropium (ATROVENT) 0.02 % nebulizer solution [...] Oral At Bedtime 5 mg at 10/20/22 220 [id number] (CREON (more content not included)... Normal [facility] MR HEAD/ORBIT W/Oon 10-21-19 MR HEAD/ORBIT [...] and diffuse abnormal infiltration throughout the right fruit buyer space with asymmetric enlargement of the right [...] pterygopalatine fossa and diffusely throughout the right fruit buyer space with asymmetry of the muscles of [...] with read back verification. (-CF-) Normal [facility] MR ORBIT W/+W/Oon 10-21-2022 MR ORBIT [...] infiltration of the right muscles of the fruit buyer (pterygoids and the temporalis), retroantral fat pad [...] sinus are normal. MACRO: None Normal [facility] Progress Noteson 10-21-2022 [employer] Authentication Interface Message Text [address] Stein requesting farzadsin. Normal The [facility] Interface Message Text Pharmacokinetic Dosing Service - VANCOMYCIN Name: Gracie Banuelos Age:[age] year old Gender: female Ht: 5' 3 Wt: no weight Indication: Central Nervous System (COMMERCIAL ANNOUNCER) and orbital cellulitis Desired Ranges: 15-20 Day of therapy: 2 Assessment and Recommendations: 10/21/22 HROBINSON1- Day 2: Central Nervous System (COMMERCIAL ANNOUNCER) and orbital cellulitis ; Renal function: stable; No change recommended. Next level Due:prior to 4th dose. Level not ordered Current Dose Active Vancomycin Orders (From admission, onward) Start Stop 10/20/221654 vancomycin (VANCOCIN) 1,250 mg/250 mL iv soln (ROOM TEMP PREMIX) 20 mg/kg, Intravenous, EVERY 12 HOURS Question: Suspected Source/Reason for Therapy Answer: Central Nervous System (COMMERCIAL ANNOUNCER) -- 10/20/221652 vancomycin dosing pharmacy consult Other, As Directed Question: Suspected Source/Reason for Therapy Answer: Central Nervous System (COMMERCIAL ANNOUNCER) -- Lab Values: Creatinine Date Value Ref Range Status 10/20/2022 0.56 0.50 - 1.10 mg/dL Final Lab Results Component Value Date/Time VANCTR 16.6 10/21/2022 03:44 PM No results found for: VANCR Serum creatinine: 0.56 mg/dL 10/20/22 0910 Estimated creatinine clearance: 89.48 mL/min Culture(s): PENDING. Chelsea Montilla Formerly [facility] - Department of Pharmacy Services Normal [facility] [employer] Authentication Interface Message Text Follow up visit [...] that did not have beds, sent to [facility] for possible admission for orbital cellulitis [...] MD and Jaime Aggarwal MD Normal The [employer] Authentication Interface Message Text Pt states that she seeing double with both eyes open The images are vertical, one on top of the other. It doesn't happen all day. It comes and goes. VA: OD cc: 20/30+3 OS:cc: 20/40-2 Ph: 20/25-1 Pupil OU 3/round/minimal/none EOM: Full CVF OU: Full IOP OD: 11 OS:08 Normal [facility] VANCOMYCIN TROUGHon 24-20 23 VANC TR 16.6 ug/mL Normal 10.0-20.0 [facility] Comment on above: Performed By: #### V ANC TR ####[id number] [place], [place], BASIC METABOLIC PANELon 09-29 Anion gap [Moles/Vol] 11 mmol/L Normal 10-20 [facility] Comment on above: Performed By: #### C H8 #### [facility] [address] [place], [place], Calcium [Mass/Vol] 9.4 mg/dL Normal 8.4-10.4 [facility] Comment on above: Performed By: #### C H8 #### S PATHOLOGY LABORATORY [address] [place], [place], Chloride [Moles/Vol] 102 mmol/L Normal 97-111 [facility] Comment on above: Performed By: #### C H8 #### S PATHOLOGY LABORATORY [address], [place], CO2 [Moles/Vol] 28 mmol/L Normal 21-30 [facility] Comment on above: Performed By: #### C H8 #### [facility] [address] [place], [place], Creatinine [Mass/Vol] 0.56 mg/dL Normal 0.50-1.10 [facility] Comment on above: Performed By: #### C H8 #### [facility] [address] [place], [place], ESTIMATED GFR (CKD-EPI) 105 mL/min/1.73sqm Normal >=60 [facility] Comment on above: Result Comment: 2020 [...] Inclusion of Race in Diagnosing Kidney Disease. [place] Journal of Kidney Diseases 202;79(2):268-88.e1. 2. N Engl J Med 2021 Vol. 385 Issue 19 Pages 8425-6042 Performed By: #### C H8 #### S [facility] LAB[facility]AT[facility] [address], [place], Glucose [Mass/Vol] 96 mg/dL Normal 68-110 [facility] Comment on above: Performed By: #### C H8 #### S [facility] LAB[facility] [address], [place], Potassium [Moles/Vol] 4.3 mmol/L Normal 3.3-5.3 [facility] Comment on above: Performed By: #### C H8 #### S PATHOLOGY LABORATORY [address] [place] [address], Sodium [Moles/Vol] 137 mmol/L Normal 135-148 [facility] Comment on above: Performed By: #### C H8 #### [facility] [address] [place] [address], Urea nitrogen [Mass/Vol] 10 mg/dL Normal 8-22 [facility] Comment on above: Performed By: #### C H8 #### [facility] [address] [place] [address], CBC WITH DIFFERENTIALon 09-29-2022 Basophils (Bld) [#/Vol] 0.19 10*3/uL Normal 0.00-0.20 [facility] Comment on above: Performed By: #### C OVID19 #### [facility] [address] [place] [address], Basophils/100 WBC (Bld) 1.3 % Normal <=1.9 [facility] Comment on above: Performed By: #### C OVID19 #### S [facility] [address] [place], [place], Eosinophils (Bld) [#/Vol] 0.52 10*3/uL Normal 0.00-0.70 [facility] Comment on above: Performed By: #### C OVID19 #### S PATHOLOGY LABORATORY [address] [place] [address], Eosinophils/100 WBC (Bld) 3.5 % Normal 0.1-4.0 [facility] Comment on above: Performed By: #### C OVID19 #### S [facility] LAB[facility]AT[facility] [address] [place], [place], Erythrocyte distribution width (RBC) [Ratio] 14.0 % Normal 11.5-14.5 [facility] Comment on above: Performed By: #### C OVID19 #### [facility] [address], [place], Hematocrit (Bld) [Volume fraction] 37.4 % Normal 36.0-46.0 [facility] Comment on above: Performed By: #### C OVID19 #### [facility] [address], [place], Hemoglobin (Bld) [Mass/Vol] 12.4 g/dL Normal 12.0-15.0 [facility] Comment on above: Performed By: #### C OVID19 #### [facility] [address] [place] [address], Lymphocytes (Bld) [#/Vol] 2.87 10*3/uL Normal 1.00-4.80 [facility] Comment on above: Performed By: #### C OVID19 #### [facility] [address] [place], [place], Lymphocytes/100 WBC (Bld) 19.5 % Low 24.0-44.0 [facility] Comment on above: Performed By: #### C OVID19 #### [facility] [address] [place], [place], MCH (RBC) [Entitic mass] 28.1 pg Normal 26.0-34.0 [facility] Comment on above: Performed By: #### C OVID19 #### [facility] [address] [place], [place], MCHC (RBC) [Mass/Vol] 33.2 g/dL Normal 32.0-35.9 [facility] Comment on above: Performed By: #### C OVID19 #### S PATHOLOGY LAB[facility]AT[facility] [address] [place], [place], MCV (RBC) [Entitic vol] 85 fL Normal 80-100 [facility] Comment on above: Performed By: #### C OVID19 #### [facility] [address], [place], MONOCYTE DISTRIBUTION WIDTH 19 Normal <=20 [facility] Comment on above: Performed By: #### C OVID19 #### [facility] [address] [place], [place], Monocytes (Bld) [#/Vol] 1.30 10*3/uL High 0.20-1.00 [facility] Comment on above: Performed By: #### C OVID19 #### [facility] [address] [place], [place], Monocytes/100 WBC (Bld) 8.8 % Normal 2.0-11.0 [facility] Comment on above: Performed By: #### C OVID19 #### [facility] [address], [place], Neutrophils (Bld) [#/Vol] 9.87 10*3/uL High 1.50-8.00 [facility] Comment on above: Performed By: #### C OVID19 #### [facility] [address], [place], Neutrophils/100 WBC (Bld) 66.9 % Normal 31.0-76.0 [facility] Comment on above: Performed By: #### C OVID19 #### [facility] [address], [place], Platelet mean volume (Bld) [Entitic vol] 8.1 fL Normal 7.5-11.2 [facility] Comment on above: Performed By: #### C OVID19 #### [facility] [address] [place], [place], Platelets (Bld) [#/Vol] 359 10*3/uL Normal 150-400 [facility] Comment on above: Performed By: #### C OVID19 #### [facility] [address], [place], RBC (Bld) [#/Vol] 4.41 10*6/uL Normal 4.00-5.20 [facility] Comment on above: Performed By: #### C OVID19 #### [facility] [address] [place], [place], WBC (Bld) [#/Vol] 14.8 10*3/uL High 4.5-11.5 [facility] Comment on above: Performed By: #### C OVID19 #### [facility] [address] [place], [place], CT CHEST W/O CONTRASTon 09-29 CT [...] risk, a follow-up CHEST W/O CONTRAST (code: [id number]) is optional at 12 months. 4. Severe coronary artery calcifications. Mitral annular calcification. MACRO: None Normal [facility] Consultson 10-20-2022 [employer] Authentication Interface Message Text -------- Attestation signed by Alem Alonso MD at 10/21/2022 10:17 AM Teaching Physician Note: I saw and evaluated the patient. I personally obtained the ochoa and critical portions of the history and physical exam. I reviewed the resident's documentation and discussed the patient with the resident. I agree with the resident's medical decision making as documented in the resident's note. Alem Alonso MD -------- ENT CONSULTATION NOTE Reason for consult: right [...] was started on clindamycin yesterday in the [place] ED with improvement in her symptoms. She [...] sinus. Other Studies/Information: I personally reviewed the eco industrial development consultant notes or primary team notes as [...] Head AND Neck Surgery ENT Team Pager: [phone] Normal [facility] ED Provider Noteson 10-20-19 [employer] Authentication Interface Message Text ENT and med [...] evaluated, recommend admission for IV abx, further [id number] as delineated in their note. No indication for biopsy at this time. Will repage team 7 med and update. Janeth Kamara MD Normal [facility] [employer] Authentication Interface Message Text EMERGENCY DEPARTMENT - VISIT NOTE ------ HISTORY OF PRESENT ILLNESS -- Chief Complaint Patient presents with Eye pain Transfer from osh for R eye cellulitis Pediatric Ophthalmologist: not needed - patient preferred language is Eritrean. The history is provided by the Patient. [...] beds available at OSH and transferred to [facility] for admission. Currently on clindamycin. Morphine [...] incorporated. Review of External (Non- ED) Notes: [facility] ED notes reviewed and show Intake notes [...] [address] Acosta at [facility], started on azithromycin OSH imaging reviewed: [...] Independent Test Interpretation: Lab studies personally interpreted Legal Technician - ophthalmology - send to clinic, medical workup, consider orbital biopsy ENT - medical eval and hold biopsy for now Course: ED Course as of 10/20/22 1642 ThuOct 20, 2022 0913 BP: 149/55 [] 0913 Temperature: 98.2 ???F (36.8 ???C) [] 0913 Heart Rate: 85 [] 0913 SpO2: 95 % VS mild HTN [...] septal/preseptal cellulitis w/out abscess, currently on clindamycin. TERRAPIN FISHER labs with +WBC no shift. Pain treated with morphine/zofran. (more content not included)... Normal [facility] Influenza virus A and B and SARS-CoV-2 (COVID-19) Ag panel - Upper respiratory specimOrdered By: Dr. 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 Guerin Normal [facility] Telephone Encounteron 2022 [employer] Authentication Interface Message Text I was called by STEPH regarding a transfer from [place] [facility]. That facility is requesting transfer because [...] 13, ESR/CRP elevated. Discussed with provider at [place] [facility], advised they should discuss case with ophthalmology as patient may benefit from ED to ED transfer rather than direct admission to medicine for earlier ophthalmology evaluation. Patient is not accepted to medicine at this time, 5:18 AM 10/20/22. Jeffy Garner MD Normal [facility] Absolute lymphocyte countOrd ered By: Dr. Dykes on 10-19-2022 Lymphocytes Auto (Unsp spec) [#/Vol] 3.28 10*3/uL 0.83-4.51 [facility] Basophil percentageOrdered B y: Dr. Dykes on 10-19-2022 Basophils/100 WBC (Bld) 0.8 % 0-1 [facility] Chloride [Moles/Vol] 107 mmol/L 98-107 [facility] Eosinophils/100 WBC (Bld) 4.4 % 0-5 [facility] Glucose [Mass/Vol] 97 mg/dL 74-106 [facility] Neutrophils (Bld) [#/Vol] 8.8 10*3/uL 2.0-7.7 [facility] Neutrophils/100 WBC (Bld) 63.4 % 47-70 [facility] Potassium [Moles/Vol] 3.8 mmol/L 3.5-5.1 [facility] Sodium [Moles/Vol] 137 mmol/L 136-145 [facility] WBC (Bld) [#/Vol] 13.9 10*3/uL 4.4-11.0 [facility] Blood erythrocytes count (nu mber/volume)Ordered By: Dr. Dykes on 10-19-2022 RBC (Bld) [#/Vol] 4.87 10*6/uL 4.2-5.4 [facility] Blood hemoglobin measurement (mass/volume)Ordered By: Dr. Dykes on 10-19-2022 Hemoglobin (Bld) [Mass/Vol] 13.6 g/dL 12.0-15.0 [facility] Blood lymphocytes/100 leukoc ytesOrdered By: Dr. Dykes on 10-19-2022 Lymphocytes/100 WBC (Bld) 23.6 % 19-41 [facility] Blood monocytes/100 leukocyt esOrdered By: Dr. Dykes on 10-19-2022 Monocytes/100 WBC (Bld) 7.1 % 0-10 [facility] Blood platelet mean volumeOr dered By: Dr. Dykes on 10-19-2022 Platelet mean volume (Bld) [Entitic vol] 9.6 fL 6.2-12.0 [facility] Determination of erythrocyte mean corpuscular volume (MCV)Ordered By: Dr. Dykes on 10-19-2022 MCV (RBC) [Entitic vol] 85.0 fL 81-99 [facility] Erythrocyte sedimentation ra teOrdered By: Dr. Dykes on 10-19-2022 ESR (Bld) [Velocity] 75 mm/h 0-30 [facility] Hematocrit Auto (Bld) [Volum e fraction]Ordered By: Dr. Dykes on 10-19-2022 Hematocrit (Bld) [Volume fraction] 41.4 % 37-47 [facility] Influenza virus A and B and SARS-CoV-2 (COVID-19) Ag panel - Upper respiratory specimOrdered By: Dr. Dykes on 10-19-2022 SARS-CoV-2 (COVID-19) RNA KANDY+probe Ql (Resp) [facility] Laboratory - Chemistry and C hemistry - challengeOrdered By: Dr. Dykes on 10-19-2022 CO2 [Moles/Vol] 26.0 mmol/L 21.0-32.0 [facility] Urea nitrogen/Creatinine [Mass ratio] 11.3 mg/mg 10-20 [facility] Laboratory - Hematology and Cell countsOrdered By: Dr. Dykes on 10-19-2022 Erythrocyte distribution width (RBC) [Entitic vol] 41.5 fL 35.1-43.9 [facility] Erythrocyte distribution width (RBC) [Ratio] 13.2 % 11.6-14.6 [facility] Immature granulocytes/100 WBC (Bld) 0.700 % 0.0-0.9 [facility] Comment on above: IG% - Immature Granu locytes (promyelocytes, myelocytes and metamyelocytes) > 1% indicates that a LEFT SHIFT is Present. MCH (RBC) [Entitic mass] 27.9 pg 27.0-32.0 [facility] Nucleated RBC/100 WBC (Bld) [Ratio] 0 % 0-5 [facility] MCHC Auto (RBC) [Mass/Vol]Or dered By: Dr. Dykes on 10-19-2022 MCHC (RBC) [Mass/Vol] 32.9 g/dL 32-36 [facility] No Panel InformationOrdered By: Dr. Dykes on 10-19-2022 Estimated Creatinine Clearance Calc 80.82 ml/min [facility] Estimated GFR (MDRD) Amer 127 mL/min >60 [facility] Comment on above: GFR Calc Estimated GFR (MDRD) Non-Af Amer 105 mL/min >60 [facility] Comment on above: Non- GFR Calc Platelets bldOrdered By: Dr. Dykes on 10-19-2022 Platelets (Bld) [#/Vol] 384 10*3/uL 150-450 [facility] Serum or plasma C reactive p rotein measurement (mass/volume)Ordered By: Dr. Dykes on 10-19-2022 CRP [Mass/Vol] 42.60 mg/L 0.0-3.0 [facility] Comment on above: C-Reactive Protein ( CRP) provides useful information for thediagnosis, therapy and monitoring of inflammatory processesand associated diseases. For the evaluation of Relative Riskfor Cardiovascular Disease, a High Sensitivity CRP (HSCRP)should be ordered. Serum or plasma calcium esthela urement (mass/volume)Ordered By: Dr. Dykes on 10-19-2022 Calcium [Mass/Vol] 9.5 mg/dL 8.5-10.1 [facility] Serum or plasma creatinine m easurement (mass/volume)Ordered By: Dr. Dykes on 10-19-2022 Creatinine [Mass/Vol] 0.62 mg/dL 0.55-1.02 [facility] Comment on above: The validity of the calculated GFR & GFRAA in patients over 70 years has not been determined. Clinical correlation is essential. Serum or plasma urea nitroge n measurement (mass/volume)Ordered By: Dr. Dykes on 10-19-2022 Urea nitrogen [Mass/Vol] 7 mg/dL 7-18 [facility] Thin prep Papanicolaou smear with manual screeningOrdered By: Dr. Dykes on 10-19-2022 Thin prep Papanicolaou smear with manual screening 4 5-15 [facility] Laboratory - Microbiology an d Antimicrobial susceptibilityOrdered By: Dr. Handy on 08-28-2022 Bacteria identified Cx Nom (Bld) No growth in 5 days. [facility] Culture, urineOrdered By: Dr Max Handy on 08-24-2022 Bacteria identified Cx Nom (U) Positive [facility] Absolute lymphocyte countOrd ered By: Dr. Handy on 08-22-2022 Lymphocytes Auto (Unsp spec) [#/Vol] 2.04 10*3/uL 0.83-4.51 [facility] Basophil percentageOrdered B y: Dr. Handy on 08-22-2022 Basophil percentage 0 SEEN /hpf 0-5 [facility] Basophils/100 WBC (Bld) 0.3 % 0-1 [facility] Bilirubin [Mass/Vol] 0.20 mg/dL 0.20-1.00 [facility] Comment on above: For patients on eltr ombopag therapy, use of Dimension [place] TBIL is not recommended. Chloride [Moles/Vol] 95 mmol/L 98-107 [facility] Eosinophils/100 WBC (Bld) 0.6 % 0-5 [facility] Glucose [Mass/Vol] 115 mg/dL 74-106 [facility] Comment on above: Fasting Glucose resu lt from 100 to 125 mg/dL suggests IMPAIRED HOMEOSTASIS per A.D.A. criteria. Lactate [Moles/Vol] 0.7 mmol/L 0.4-2.0 [facility] Neutrophils (Bld) [#/Vol] 6.4 10*3/uL 2.0-7.7 [facility] Neutrophils/100 WBC (Bld) 66.3 % 47-70 [facility] Potassium [Moles/Vol] 3.9 mmol/L 3.5-5.1 [facility] Protein [Mass/Vol] 7.5 g/dL 6.4-8.2 [facility] Sodium [Moles/Vol] 131 mmol/L 136-145 [facility] WBC (Bld) [#/Vol] 9.6 10*3/uL 4.4-11.0 [facility] Bilirubin Test strip Ql (U)O rdered By: Dr. Handy on 08-22-2022 Bilirubin Ql (U) Negative Negative [facility] Blood erythrocytes count (nu mber/volume)Ordered By: Dr. Handy on 08-22-2022 RBC (Bld) [#/Vol] 5.09 10*6/uL 4.2-5.4 [facility] Blood hemoglobin measurement (mass/volume)Ordered By: Dr. Handy on 08-22-2022 Hemoglobin (Bld) [Mass/Vol] 15.2 g/dL 12.0-15.0 [facility] Blood lymphocytes/100 leukoc ytesOrdered By: Dr. Handy on 08-22-2022 Lymphocytes/100 WBC (Bld) 21.2 % 19-41 [facility] Blood monocytes/100 leukocyt esOrdered By: Dr. Handy on 08-22-2022 Monocytes/100 WBC (Bld) 11.3 % 0-10 [facility] Blood platelet mean volumeOr dered By: Dr. Handy on 08-22-2022 Platelet mean volume (Bld) [Entitic vol] 10.8 fL 6.2-12.0 [facility] Determination of erythrocyte mean corpuscular volume (MCV)Ordered By: Dr. Handy on 08-22-2022 MCV (RBC) [Entitic vol] 86.1 fL 81-99 [facility] Hematocrit Auto (Bld) [Volum e fraction]Ordered By: Dr. Handy on 08-22-2022 Hematocrit (Bld) [Volume fraction] 43.8 % 37-47 [facility] INR in Blood by Coagulation assayOrdered By: Dr. Handy on 08-22-2022 INR Coag (Bld) [Relative time] 0.9 {INR} [facility] Influenza virus A and B and SARS-CoV-2 (COVID-19) Ag panel - Upper respiratory specimOrdered By: Dr. Handy on 08-22-2022 SARS-CoV-2 (COVID-19) RNA KANDY+probe Ql (Resp) [facility] Ketones Test strip Ql (U)Ord ered By: Dr. Handy on 08-22-2022 Ketones Ql (U) Negative Negative [facility] Laboratory - Chemistry and C hemistry - challengeOrdered By: Dr. Handy on 08-22-2022 ALP [Catalytic activity/Vol] 108 U/L 45-117 [facility] ALT [Catalytic activity/Vol] 21 U/L 13-56 [facility] CO2 [Moles/Vol] 30.0 mmol/L 21.0-32.0 [facility] Globulin (S) [Mass/Vol] 4.1 g/dL 2.2-4.2 [facility] Urea nitrogen/Creatinine [Mass ratio] 15.0 mg/mg 10-20 [facility] Laboratory - CoagulationOrde red By: Dr. Handy on 08-22-2022 aPTT Coag (Bld) [Time] 28.9 s 24.1-36.2 [facility] PT Coag (PPP) [Time] 12.3 s 11.7-14.9 [facility] Laboratory - Hematology and Cell countsOrdered By: Dr. Handy on 08-22-2022 Erythrocyte distribution width (RBC) [Entitic vol] 42.4 fL 35.1-43.9 [facility] Erythrocyte distribution width (RBC) [Ratio] 13.4 % 11.6-14.6 [facility] Immature granulocytes/100 WBC (Bld) 0.300 % 0.0-0.9 [facility] Comment on above: IG% - Immature Granu locytes (promyelocytes, myelocytes and metamyelocytes) > 1% indicates that a LEFT SHIFT is Present. MCH (RBC) [Entitic mass] 29.9 pg 27.0-32.0 [facility] Nucleated RBC/100 WBC (Bld) [Ratio] 0 % 0-5 [facility] MCHC Auto (RBC) [Mass/Vol]Or dered By: Dr. Handy on 08-22-2022 MCHC (RBC) [Mass/Vol] 34.7 g/dL 32-36 [facility] Mucus LM Ql (Urine sed)Order ed By: Dr. Handy on 08-22-2022 Mucus Ql (Urine sed) 0 SEEN /hpf [facility] Nitrite Test strip Ql (U)Ord ered By: Dr. Handy on 08-22-2022 Nitrite Ql (U) Negative Negative [facility] No Panel InformationOrdered By: Dr. Handy on 08-22-2022 Estimated Creatinine Clearance Calc 83.51 ml/min [facility] Estimated GFR (MDRD) Amer 132 mL/min >60 [facility] Comment on above: GFR Calc Estimated GFR (MDRD) Non-Af Amer 109 mL/min >60 [facility] Comment on above: Non- GFR Calc Troponin I High Sensitivity 25 pg/mL 3.0-54.0 [facility] Comment on above: Please Note: New Shabana t Units and Gender Specific Reference Ranges. For more information see Policy Stat Procedure Straughn High Sensitivity Troponin (TNIH) and attachments. Platelets bldOrdered By: Dr. Handy on 08-22-2022 Platelets (Bld) [#/Vol] 226 10*3/uL 150-450 [facility] Protein Test strip Ql (U)Ord ered By: Dr. Handy on 08-22-2022 Protein Ql (U) Negative Negative [facility] RSV Ag EIAOrdered By: Dr. Kam lou on 08-22-2022 RSV Ag Immune stain Ql (Tiss) [facility] Serum or plasma albumin esthela urement (mass/volume)Ordered By: Dr. Handy on 08-22-2022 Albumin [Mass/Vol] 3.4 g/dL 3.2-5.0 [facility] Serum or plasma albumin/glob ulin mass ratioOrdered By: Dr. Handy on 08-22-2022 Albumin/Globulin [Mass ratio] 0.8 {ratio} 0.9-2.4 [facility] Serum or plasma calcium esthela urement (mass/volume)Ordered By: Dr. Handy on 08-22-2022 Calcium [Mass/Vol] 8.7 mg/dL 8.5-10.1 [facility] Serum or plasma creatinine m easurement (mass/volume)Ordered By: Dr. Handy on 08-22-2022 Creatinine [Mass/Vol] 0.60 mg/dL 0.55-1.02 [facility] Comment on above: The validity of the calculated GFR & GFRAA in patients over 70 years has not been determined. Clinical correlation is essential. Serum or plasma urea nitroge n measurement (mass/volume)Ordered By: Dr. Handy on 08-22-2022 Urea nitrogen [Mass/Vol] 9 mg/dL 7-18 [facility] Squamous epithelial cells de tection in urine sediment by light microscopyOrdered By: Dr. Handy on 08-22-2022 Epithelial cells.squamous LM Ql (Urine sed) 0-5 SEEN /hpf 5-10 [facility] Thin prep Papanicolaou smear with manual screeningOrdered By: Dr. Handy on 08-22-2022 Thin prep Papanicolaou smear with manual screening 17 U/L 15-37 [facility] Thin prep Papanicolaou smear with manual screening 6 5-15 [facility] Urine blood detectionOrdered By: Dr. Handy on 08-22-2022 RBC Ql (U) Negative Negative [facility] RBC Ql (U) 0 SEEN /hpf 0-5 [facility] Urine clarityOrdered By: Dr. Handy on 08-22-2022 Clarity (U) Sl. Cloudy Clear [facility] Urine color determinationOrd ered By: Dr. Handy on 08-22-2022 Color (U) Yellow Yellow [facility] Urine glucose detectionOrder ed By: Dr. Handy on 08-22-2022 Glucose Ql (U) Normal mg/dl Normal [facility] Urine leukocyte esterase det ection by dipstickOrdered By: Dr. Handy on 08-22-2022 Leukocyte esterase Test strip Ql (U) Negative Negative [facility] Urine pHOrdered By: Dr. Rashad lay on 08-22-2022 pH (U) 6.5 [pH] 5.0 - 8.0 [facility] Urine sediment bacteria coun t by microscopy (number/high power field)Ordered By: Dr. Handy on 08-22-2022 Bacteria LM.HPF (Urine sed) [#/Area] RARE /hpf None Seen [facility] Urine specific gravity measu rementOrdered By: Dr. Handy on 08-22-2022 Specific gravity (U) [Rel density] 1.005 1.002-1.030 [facility] Urobilinogen Auto test strip Ql (U)Ordered By: Dr. Handy on 08-22-2022 Urobilinogen Ql (U) Normal mg/dl Normal [facility] Absolute lymphocyte counton 03-03-2022 Lymphocytes Auto (Unsp spec) [#/Vol] 2.54 10*3/uL 0.83-4.51 [facility] Work Phone: Basophil percentageon 2021 Basophils/100 WBC (Bld) 0.8 % 0-1 [facility] Work Phone: Chloride [Moles/Vol] 107 mmol/L 98-107 [facility] Work Phone: Eosinophils/100 WBC (Bld) 2.4 % 0-5 [facility] Work Phone: Glucose [Mass/Vol] 149 mg/dL 74-106 [facility] Work Phone: Comment on above: Fasting Glucose resu lt greater than or equal to 126 mg/dL suggests DIABETES MELLITUS per A.D.A. criteria. Neutrophils (Bld) [#/Vol] 7.8 10*3/uL 2.0-7.7 [facility] Work Phone: Neutrophils/100 WBC (Bld) 66.0 % 47-70 [facility] Work Phone: Potassium [Moles/Vol] 3.6 mmol/L 3.5-5.1 [facility] Work Phone: Sodium [Moles/Vol] 139 mmol/L 136-145 [facility] Work Phone: WBC (Bld) [#/Vol] 11.8 10*3/uL 4.4-11.0 [facility] Work Phone: [phone] Blood erythrocytes count (nu mber/volume)on 03-03-2022 RBC (Bld) [#/Vol] 4.79 10*6/uL 4.2-5.4 [facility] Work Phone: [phone] Blood hemoglobin measurement (mass/volume)on 03-03-2022 Hemoglobin (Bld) [Mass/Vol] 13.4 g/dL 12.0-15.0 [facility] Work Phone: Blood lymphocytes/100 leukoc yteson 03-03-2022 Lymphocytes/100 WBC (Bld) 21.6 % 19-41 [facility] Work Phone: Blood monocytes/100 leukocyt eson 03-03-2022 Monocytes/100 WBC (Bld) 8.4 % 0-10 [facility] Work Phone: Blood platelet mean volumeon 03-03-2022 Platelet mean volume (Bld) [Entitic vol] 10.4 fL 6.2-12.0 [facility] Work Phone: Determination of erythrocyte mean corpuscular volume (MCV)on 03-03-2022 MCV (RBC) [Entitic vol] 89.4 fL 81-99 [facility] Work Phone: Hematocrit Auto (Bld) [Volum e fraction]on 03-03-2022 Hematocrit (Bld) [Volume fraction] 42.8 % 37-47 [facility] Work Phone: [phone] Laboratory - Chemistry and C hemistry - challengeon 03-03-2022 CO2 [Moles/Vol] 27.0 mmol/L 21.0-32.0 [facility] Work Phone: Urea nitrogen/Creatinine [Mass ratio] 6.7 mg/mg 10-20 [facility] Work Phone: [phone] Laboratory - Hematology and Cell countson 03-03-2022 Erythrocyte distribution width (RBC) [Entitic vol] 45.1 fL 35.1-43.9 [facility] Work Phone: [phone] Erythrocyte distribution width (RBC) [Ratio] 13.8 % 11.6-14.6 [facility] Work Phone: [phone] Immature granulocytes/100 WBC (Bld) 0.800 % 0.0-0.9 [facility] Work Phone: [phone] Comment on above: IG% - Immature Granu locytes (promyelocytes, myelocytes and metamyelocytes) > 1% indicates that a LEFT SHIFT is Present. MCH (RBC) [Entitic mass] 28.0 pg 27.0-32.0 [facility] Work Phone: [phone] Nucleated RBC/100 WBC (Bld) [Ratio] 0 % 0-5 [facility] Work Phone: [phone] MCHC Auto (RBC) [Mass/Vol]on 03-03-2022 MCHC (RBC) [Mass/Vol] 31.3 g/dL 32-36 [facility] Work Phone: [phone] No Panel Informationon 03-03 Estimated Creatinine Clearance Calc 84.54 ml/min [facility] Work Phone: [phone] Estimated GFR (MDRD) Amer 131 mL/min >60 [facility] Work Phone: [phone] Comment on above: GFR Calc Estimated GFR (MDRD) Non-Af Amer 109 mL/min >60 [facility] Work Phone: [phone] Comment on above: Non- GFR Calc SARS-CoV-2 & FLU Antigen (Rapid) [facility] Work Phone: [phone] Troponin I High Sensitivity 14 pg/mL 3.0-54.0 [facility] Work Phone: [phone] Comment on above: Please Note: New Shabana t Units and Gender Specific Reference Ranges. For more information see Policy Stat Procedure Straughn High Sensitivity Troponin (TNIH) and attachments. Platelets bldon 03-03-2022 Platelets (Bld) [#/Vol] 251 10*3/uL 150-450 [facility] Work Phone: Serum or plasma calcium esthela urement (mass/volume)on 03-03-2022 Calcium [Mass/Vol] 9.0 mg/dL 8.5-10.1 [facility] Work Phone: Serum or plasma creatinine m easurement (mass/volume)on 03-03-2022 Creatinine [Mass/Vol] 0.60 mg/dL 0.55-1.02 [facility] Work Phone: Comment on above: The validity of the calculated GFR & GFRAA in patients over 70 years has not been determined. Clinical correlation is essential. Serum or plasma urea nitroge n measurement (mass/volume)on 03-03-2022 Urea nitrogen [Mass/Vol] 4 mg/dL 7-18 [facility] Work Phone: Thin prep Papanicolaou smear with manual screeningon 03-03-2022 Thin prep Papanicolaou smear with manual screening 5 5-15 [facility] Work Phone: ANES Pily 12-05-2019 ANES POST HNO ID: [id number] Author: Mark Saab Service: Anesthesiology Author Type: Physician Type: Anesthesia PostOp Filed: 12/05/2019 1:36 PM Note Text: POST ANESTHESIA EVALUATION NOTE SERVICE DATE: 12/05/2019 SERVICE TIME: 1:36 PM : 1965 Vitals: 12/05/19 06 Temp: 36 ?C (96.8 ?F) 12/05/19 0654 12/05/19 0852 12/05/19 0904 12/05/19913 BP: 115/72 96/67 96/83 116/94 12/05/19 0654 12/05/19 0852 12/05/19 0904 12/05/19913 Pulse: 86 88 89 92 12/05/19 0654 12/05/19 0852 12/05/19 0904 12/05/19913 Resp: 18 16 16 16 12/05/19 0654 12/05/19 0852 12/05/19 0904 12/05/19913 SpO2: 98% 94% 94% 96% Validated Vital [...] 05, 2019 TIME: 1:36 PM PAGER/CONTACT #: [phone] [facility] ANES PREOPon 12-05-2019 ANES PREOP HNO ID: [id number] Author: Mark Saab Service: Anesthesiology Author Type: [...] Stage 2 moderate COPD by GOLD classification ([facility]) 2018 - Tobacco use - [...] File Prior to Encounter Medication Sig - dwqwuj-qiwbmtfh-gftaeel (CREON 24) 24,000-76,000 -120,000 unit cpDR Take [...] area twice daily as needed. ) - pseudoephedrine-guaiFENe sin (MUCINEX D) 60-600 mg per tablet Take [...] December 05, 2019 TIME: 7:47 AM CSN: [id number] Normal [facility] Glucose Meteron 12-05-2019 Glucose [Mass/Vol] 107 mg/dL High 70-99 [facility] Comment on above: Result Comment: RN N OTIFIED Performed By: #### G LMET #### [place] [address] OPERATIVE NOon 12-05-2019 OPERATIVE NO HNO ID: [id number] Author: Claudia Odonnell Service: Gastroenterology Author Type: Physician Type: Operative Report Filed: 12/05/2019 9:08 AM Note Text: OPERATIVE/PROCEDURE REPORT LOG ID: [id number] Surgery/Procedure Date: 12/05/2019 Incision/Procedure Start Time: 8:27 AM Incision Close/Procedure End Time: 8:45 AM Surgeon(s)/Proceduralist (s) and Customer Liaison(s): Surgeon(s) and Role: * Claudia Odonnell - Primary No Additional Staff Procedure(s): Endoscopic Ultrasound (EUS) Esophagogastroduodenosco py (EGD) and biopsy Anesthesia: Monitored Anesthesia Care [...] December 05, 2019 TIME: 8:46 AM PAGER/CONTACT #:[phone] Normal [facility] PROGRESSon 12-05-2019 PROGRESS HNO ID: [id number] Author: Juan Everett Service: General Surgery Author Type: Nurse Practitioner Type: Progress Notes Filed: 12/05/2019 7:17 AM Note Text: HANDP completed by Dr. Claudia Odonnell on 11/09/2019. Orders for fluid and IV in Epic. Order for BS check in pre op. Last few BMPs- low glucose. Pt denies history of hypoglycemia. Normal [facility] PT EDon 12-05-2019 PT ED HNO ID: [id number] Author: Ani MunroeRn) SARWAT Ortiz Service: Nursing [...] Signed By: Ani Ortiz RN In Department: [place] ENDO [facility] PT ED HNO ID: [id number] Author: Gabby MunroeRn) SARWAT Walker Service: Nursing Author Type: Registered [...] EUS Patient Name: Gracie Banuelos Patient [facility] Readiness To Learn Motivation To Learn: Interested Instruction Provided To: Patient and family member Learning Response Patient/Family Response: Verbalizes understanding of: PRE-PROCEDURE INSTRUCTIONS-Correct action to take to follow pre-procedure instructions Method of Instruction: Individual instruction Verbal instruction Follow-Up Plan: Complete - No need for follow-up Electronically signed by: Gabby Walker RN [facility] Surgical Tissue Examon 12-04 Surgical Tissue Exam Test performed at [place] [address] NAME: GRACIE BANUELOS REQUESTING: CLAUDIA ODONNELL FINAL [...] PRINTED: 12/07/2019 Page 1 of 1 Normal [facility] Comment on above: Performed By: #### S URG #### [place] [address] HOSPon 11-10-2019 HOSP Patient:Gracie Banuelos MRN: Height:5' 3(1.6 m) Weight:111 lb (50.349 kg) Outpatient Medications as of 12/05/19: nehmwd-dxkinpzv-pgpxvtf (CREON 24) 24,000-76,000 -120,000 unit cpDR pantoprazole [...] and D ointment Blood Pressure Monitor kit pseudoephedrine-guaiFENe sin (MUCINEX D) 60-600 mg per tablet benzonatate [...] incontinence, stress female [N39.3] HPV test positive [[id number]] Pulmonary emphysema (HCC) [J43.9] Irritable bowel syndrome [...] basenames: K,HCT Progress Notes (): Juan Everett, TRANSMISSIONS SYSTEMS OPERATOR.LEGAL EXECUTIVE ASSISTANT 12/05/2019 7:17 AM Addendum HANDP completed by Dr. Claudia Odonnell on 11/09/2019. Orders for fluid and IV in Epic. Order for BS check in pre op. Last few BMPs- low glucose. Pt denies history of hypoglycemia. Previous Version Gabby Walker, RN, RN 12/05/2019 7:18 AM Signed PRE OP LEARNING ASSESSMENT PROCEDURE/SURGERY: GI PROCEDURES: ESU READINESS TO LEARN COGNITIVE ABILITY: Alert and oriented MOTIVATION TO LEARN: Interested FAMILY SUPPORT: High - Very involved in pt care PATIENT LEARNS BEST BY: Individual Instruction Verbal Instruction FACTORS AFFECTING LEARNING: None PHYSICAL LIMITATIONS AFFECTING LEARNING: None Electronically Signed By: Gabby Walker RN In Department: [facility] ONGOING PATIENT EDUCATION TOPIC Reinforced: EUS Patient Name: Gracie Banuelos [place] [facility] Readiness To Learn Motivation To Learn: Interested [...] File Prior to Encounter Medication Sig - himflq-uptwigpn-fggwypc (CREON 24) 24,000-76,000 -120,000 unit cpDR Take [...] area twice daily as needed. ) - pseudoephedrine-guaiFENe sin (MUCINEX D) 60-600 mg per tablet Take [...] at 12/05/19 0727 30 mL/hr at 12/05/19 0727 Allergies: ALLERGIES Allergen Reactions - Ativan [Lorazepam] [...] December 05, 2019 TIME: 7:47 AM CSN: [id number] Progress Notes ([facility]): Claudia Odonnell MD 11/09/2019 3:06 PM Signed HPI:Gracie Banuelos is a 54 year old female who presents for Chronic Pancreatitis. She has h/o- alcohol abuse- quit 10 months ago. She has c/o- pain lower abdomen which is chronic for several years and unrelated to food intake. Also has c/o- diarrhea. She has also difficulty to gain weight. She had CT-scan abdomen from [facility] which shows calcifications in pancreas- suggestive of chronic pancreatitis. No h/o- nausea, vomiting, loss of appetite, hematemesis, bleeding [place], unexplained weight loss, diarrhea, tenesmus, nocturnal diarrhea. She is an active smoker. No F/H of pancreatic cancer. PAST MEDICAL HISTORY Diagnosis Date - Acute exacerbation of chronic obstructive airways disease (HCC) - Alcohol dependence in remission ([facility]) 07/10/2015 - Alcohol use disorder [...] Stage 2 moderate COPD by GOLD classification ([facility]) 2018 - Tobacco use - [...] 1 ORAL) Take by mouth once daily. pseudoephedrine-guaiFENe sin (MUCINEX D) 60-600 mg per tablet Take [...] 11/09/19 TIME: 2:32 PM Previous Version Normal [facility] Pulmonary Functiono n 06-19-2017 [place] [facility]monary Function [facility] No Panel Information SARS-CoV-2 & FLU Antigen (Rapid) [facility] Work Phone: Vital Signs Date Time Vital Sign Value Performing Clinician Facility 07-10-2025 12:08-0400 Body temperature 97.8 [degF] Dr. Misbah Elkins MD Work Phone: 2(772)395-485057 [place] [address] 07-10-2025 12:08-0400 Diastolic blood pressure 93 mm[Hg] Dr. Misbah Elkins MD Work Phone: 1(365)780-628057 [place] [address] 07-10-2025 12:08-0400 Heart rate 104 /min Dr. Misbah Elkins MD Work Phone: 1(457)820-126957 [place] [address] 07-10-2025 12:08-0400 Respiratory rate 20 /min Dr. Misbah Elkins MD Work Phone: 1(166)935-605157 [place] [address] 07-10-2025 12:08-0400 SaO2% (BldA) [Mass fraction] 92 % Dr. Misbah Elkins MD Work Phone: 7(508)591-630557 [place] [address] 07-10-2025 12:08-0400 Systolic blood pressure 167 mm[Hg] Dr. Misbah Elkins MD Work Phone: 2(398)065-355757 [place] [address] 07-10-2025 11:43-0400 Inhaled oxygen flow rate 5 L/min Dr. Misbah Elkins MD Work Phone: 6(810)881-934557 [place] [address] 07-10-2025 06:55-0400 Body height 160.[address] Misbah Elkins MD Work Phone: 7(639)887-184957 [place] [address] 07-10-2025 06:55-0400 Body mass index (BMI) [Ratio] 24 kg/m2 Dr. Misbah Elkins MD Work Phone: 7(201)219-358157 [place] [address] 07-10-2025 06:55-0400 Body weight 61.[address] Misbah Elkins MD Work Phone: 0(103)804-501357 [place] [address] 07-07-2025 01:15-0400 Body temperature 97.9 [degF] Dr. Misbah Elkins MD Work Phone: 8(574)771-338757 [place] [address] 07-07-2025 01:15-0400 Diastolic blood pressure 62 mm[Hg] Dr. Misbah Elkins MD Work Phone: 8(189)732-172757 [place] [address] 07-07-2025 01:15-0400 Heart rate 88 /min Dr. Misbah Elkins MD Work Phone: 1(186)509-829357 [place] [address] 07-07-2025 01:15-0400 Respiratory rate 14 /min Dr. Misbah Elkins MD Work Phone: 4(819)387-660557 [place] [address] 07-07-2025 01:15-0400 SaO2% (BldA) [Mass fraction] 95 % Dr. Misbah Elkins MD Work Phone: 3(269)708-534257 [place] [address] 07-07-2025 01:15-0400 Systolic blood pressure 155 mm[Hg] Dr. Misbah Elkins MD Work Phone: 0(804)472-618657 [place] [address] 07-06-2025 19:41-0400 Body mass index (BMI) [Ratio] 22.8 kg/m2 Dr. Misbah Elkins MD Work Phone: 9(843)246-839157 [place] [address] 07-06-2025 19:41-0400 Body weight 58.[address] Misbah Elkins MD Work Phone: 8(809)527-697457 [place] [address] 07-06-2025 12:15-0400 Body temperature 97 [degF] Dr. Misbah Elkins MD Work Phone: 7(864)755-395857 [place] [address] 07-06-2025 12:15-0400 Diastolic blood pressure 75 mm[Hg] Dr. Misbah Elkins MD Work Phone: 4(501)562-229757 [place] [address] 07-06-2025 12:15-0400 Heart rate 86 /min Dr. Misbah Elkins MD Work Phone: 5(337)465-608457 [place] [address] 07-06-2025 12:15-0400 Inhaled oxygen flow rate 5 L/min Dr. Misbah Elkins MD Work Phone: 2(447)910-527957 [place] [address] 07-06-2025 12:15-0400 Respiratory rate 19 /min Dr. Misbah Elkins MD Work Phone: 0(117)275-851557 [place] [address] 07-06-2025 12:15-0400 SaO2% (BldA) [Mass fraction] 95 % Dr. Misbah Elkins MD Work Phone: 7(144)341-691057 [place] [address] 07-06-2025 12:15-0400 Systolic blood pressure 176 mm[Hg] Dr. Misbah Elkins MD Work Phone: [facility] 07-06-2025 09:47-0400 Body mass index (BMI) [Ratio] 23.6 kg/m2 Dr. Misbah Elkins MD Work Phone: [facility] 07-06-2025 09:47-0400 Body weight 60.[address] Misbah Elkins MD Work Phone: [facility] 05-31-2025 10:39-0400 Body mass index (BMI) [Ratio] 20.63 kg/m2 Soila Older TRANSMISSIONS SYSTEMS OPERATOR.LEGAL EXECUTIVE ASSISTANT Work Phone: [facility] 05-31-2025 10:39-0400 Body weight 56.25 kg Soila Older TRANSMISSIONS SYSTEMS OPERATOR.LEGAL EXECUTIVE ASSISTANT Work Phone: [facility] 05-31-2025 10:39-0400 Diastolic blood pressure 80 mm[Hg] Soila Older TRANSMISSIONS SYSTEMS OPERATOR.LEGAL EXECUTIVE ASSISTANT Work Phone: [facility] 05-31-2025 10:39-0400 Heart rate 78 /min Soila Older TRANSMISSIONS SYSTEMS OPERATOR.LEGAL EXECUTIVE ASSISTANT Work Phone: [facility] 05-31-2025 10:39-0400 Respiratory rate 16 /min Soila Older TRANSMISSIONS SYSTEMS OPERATOR.LEGAL EXECUTIVE ASSISTANT Work Phone: [facility] 05-31-2025 10:39-0400 SaO2% (BldA) [Mass fraction] 95 % Soila Older TRANSMISSIONS SYSTEMS OPERATOR.LEGAL EXECUTIVE ASSISTANT Work Phone: [facility] 05-31-2025 10:39-0400 Systolic blood pressure 128 mm[Hg] Soila Older TRANSMISSIONS SYSTEMS OPERATOR.LEGAL EXECUTIVE ASSISTANT Work Phone: [facility] 05-24-2025 20:55-0400 Body temperature 98 [degF] Dr. Misbah Elkins MD Work Phone: [facility] 05-24-2025 20:55-0400 Diastolic blood pressure 92 mm[Hg] Dr. Misbah Elkins MD Work Phone: [facility] 05-24-2025 20:55-0400 Heart rate 104 /min Dr. Misbah Elkins MD Work Phone: 3(456)149-531357 [place] [address] 05-24-2025 20:55-0400 Respiratory rate 18 /min Dr. Misbah Elkins MD Work Phone: 0(831)157-886557 [place] [address] 05-24-2025 20:55-0400 SaO2% (BldA) [Mass fraction] 94 % Dr. Misbah Elkins MD Work Phone: 2(064)120-848257 [place] [address] 05-24-2025 20:55-0400 Systolic blood pressure 143 mm[Hg] Dr. Misbah Elkins MD Work Phone: 0(821)549-704457 [place] [address] 05-24-2025 19:54-0400 Inhaled oxygen flow rate 2 L/min Dr. Misbah Elkins MD Work Phone: 2(222)911-783157 [place] [address] 05-24-2025 19:41-0400 Body height 160.[address] Misbah Elkins MD Work Phone: 9(222)038-236957 [place] [address] 05-24-2025 19:41-0400 Body mass index (BMI) [Ratio] 24 kg/m2 Dr. Misbah Elkins MD Work Phone: 6(679)455-979857 [place] [address] 05-24-2025 19:41-0400 Body weight 61.[address] Misbah Elkins MD Work Phone: 2(450)036-932057 [place] [address] 05-24-2025 08:44-0400 Body mass index (BMI) [Ratio] 21.6 kg/m2 Dr. Misbah Elkins MD Work Phone: 7(803)984-306457 [place] [address] 05-24-2025 08:44-0400 Body temperature 97.2 [degF] Dr. Misbah Elkins MD Work Phone: 7(408)218-151357 [place] [address] 05-24-2025 08:44-0400 Body weight 55.[address] Misbah Elkins MD Work Phone: 3(094)931-732657 [place] [address] 05-24-2025 08:44-0400 Diastolic blood pressure 74 mm[Hg] Dr. Misbah Elkins MD Work Phone: 5(511)843-985557 [place] [address] 05-24-2025 08:44-0400 Heart rate 102 /min Dr. Misbah Elkins MD Work Phone: 4(999)129-252957 [place] [address] 05-24-2025 08:44-0400 Inhaled oxygen flow rate 5 L/min Dr. Misbah Elkins MD Work Phone: 5(134)097-911357 [place] [address] 05-24-2025 08:44-0400 Respiratory rate 18 /min Dr. Misbah Elkins MD Work Phone: 0(081)450-813457 [place] [address] 05-24-2025 08:44-0400 SaO2% (BldA) [Mass fraction] 96 % Dr. Misbah Elkins MD Work Phone: 9(990)885-316357 [place] [address] 05-24-2025 08:44-0400 Systolic blood pressure 102 mm[Hg] Dr. Misbah Elkins MD Work Phone: 4(418)425-951257 [place] [address] 05-10-2025 23:09-0400 Body temperature 98 [degF] Dr. Misbah Elkins MD Work Phone: 8(191)668-823957 [place] [address] 05-10-2025 23:09-0400 Diastolic blood pressure 66 mm[Hg] Dr. Misbah Elkins MD Work Phone: 6(524)184-235457 [place] [address] 05-10-2025 23:09-0400 Heart rate 67 /min Dr. Misbah Elkins MD Work Phone: 2(370)865-234057 [place] [address] 05-10-2025 23:09-0400 Respiratory rate 16 /min Dr. Misbah Elkins MD Work Phone: 3(212)218-767157 [place] [address] 05-10-2025 23:09-0400 SaO2% (BldA) [Mass fraction] 99 % Dr. Misbah Elkins MD Work Phone: 4(509)454-004157 [place] [address] 05-10-2025 23:09-0400 Systolic blood pressure 120 mm[Hg] Dr. Misbah Elkins MD Work Phone: 9(528)162-908857 [place] [address] 05-10-2025 22:31-0400 Inhaled oxygen flow rate 4 L/min Dr. Misbah Elkins MD Work Phone: 2(672)650-242957 [place] [address] 05-10-2025 20:32-0400 Body height 160.[address] Misbah Elkins MD Work Phone: 0(239)268-756169 [place] [address] 05-10-2025 20:32-0400 Body mass index (BMI) [Ratio] 23.6 kg/m2 Dr. Misbah Elkins MD Work Phone: 1(746)949-088557 [place] [address] 05-10-2025 20:32-0400 Body weight 60.[address] Misbah Elkins MD Work Phone: 1(739)765-297857 [place] [address] 04-25-2025 15:59-0400 Body mass index (BMI) [Ratio] 20.47 kg/m2 Misbah Elkins MD Work Phone: 4(944)202-677563 [place] [address] 04-25-2025 15:59-0400 Body weight 55.79 kg Misbah Elkins MD Work Phone: 0(921)441-726163 [place] [address] 04-25-2025 15:59-0400 Diastolic blood pressure 84 mm[Hg] Misbah Elkins MD Work Phone: 4(223)686-418063 [place] [address] 04-25-2025 15:59-0400 Heart rate 104 /min Misbah Elkins MD Work Phone: 9(173)176-777663 [place] [address] 04-25-2025 15:59-0400 Respiratory rate 18 /min Misbah Elkins MD Work Phone: 8(715)213-200463 [place] [address] 04-25-2025 15:59-0400 SaO2% (BldA) [Mass fraction] 92 % Misbah Elkins MD Work Phone: 3(622)577-953763 [place] [address] Comment on above: 5 L/min 04-25-2025 15:59-0400 Systolic blood pressure 116 mm[Hg] Misbah Elkins MD Work Phone: 3(326)455-401763 [place] [address] 04-19-2025 12:55-0400 Heart rate 81 /min Dr. Misbah Elkins MD Work Phone: [facility] 04-19-2025 12:55-0400 Respiratory rate 18 /min Dr. Misbah Elkins MD Work Phone: 4(476)278-842769 [place] [address] 04-19-2025 08:40-0400 Body temperature 98.8 [degF] Dr. Misbah Elkins MD Work Phone: 2(538)749-851157 [place] [address] 04-19-2025 08:40-0400 Diastolic blood pressure 77 mm[Hg] Dr. Misbah Elkins MD Work Phone: 8(473)129-720157 [place] [address] 04-19-2025 08:40-0400 Inhaled oxygen flow rate 4 L/min Dr. Misbah Elkins MD Work Phone: 1(189)213-319757 [place] [address] 04-19-2025 08:40-0400 SaO2% (BldA) [Mass fraction] 97 % Dr. Misbah Elkins MD Work Phone: 0(782)330-181957 [place] [address] 04-19-2025 08:40-0400 Systolic blood pressure 102 mm[Hg] Dr. Misbah Elkins MD Work Phone: 5(264)454-502857 [place] [address] 04-19-2025 07:56-0400 Body mass index (BMI) [Ratio] 23.7 kg/m2 Dr. Misbah Elkins MD Work Phone: 4(620)996-001457 [place] [address] 04-19-2025 07:56-0400 Body weight 60.[address] Misbah Elkins MD Work Phone: 0(107)975-513457 [place] [address] 04-17-2025 14:06-0400 Body height 160.[address] Misbah Elkins MD Work Phone: 4(031)622-684457 [place] [address] 04-16-2025 00:57-0400 Body temperature 98.7 [degF] Dr. Misbah Elkins MD Work Phone: 6(044)415-310757 [place] [address] 04-16-2025 00:57-0400 Diastolic blood pressure 67 mm[Hg] Dr. Misbah Elknis MD Work Phone: 5(819)435-470957 [place] [address] 04-16-2025 00:57-0400 Heart rate 91 /min Dr. Misbah Elkins MD Work Phone: 8(044)594-062957 [place] [address] 04-16-2025 00:57-0400 Inhaled oxygen flow rate 4 L/min Dr. Misbah Elkins MD Work Phone: 2(379)489-931457 [place] [address] 04-16-2025 00:57-0400 Respiratory rate 18 /min Dr. Misbah Elkins MD Work Phone: [facility] 04-16-2025 00:57-0400 SaO2% (BldA) [Mass fraction] 100 % Dr. Misbah Elkins MD Work Phone: [facility] 04-16-2025 00:57-0400 Systolic blood pressure 168 mm[Hg] Dr. Misbah Elkins MD Work Phone: [facility] 04-15-2025 22:49-0400 Body height 160.[address] Misbah Elkins MD Work Phone: [facility] 04-15-2025 22:49-0400 Body mass index (BMI) [Ratio] 22.4 kg/m2 Dr. Misbah Elkins MD Work Phone: 7(127)322-925469 [place] [address] 04-15-2025 22:49-0400 Body weight 57.[address] Misbah Elkins MD Work Phone: [facility] 04-10-2025 13:37-0400 Body mass index (BMI) [Ratio] 20.54 kg/m2 Nicolas Greer TRANSMISSIONS SYSTEMS OPERATOR.COMMERCIAL ANNOUNCER Work Phone: [facility] 04-10-2025 13:37-0400 Body weight 56 kg Nicolas Greer TRANSMISSIONS SYSTEMS OPERATOR.COMMERCIAL ANNOUNCER Work Phone: [facility] 04-10-2025 13:37-0400 Diastolic blood pressure 82 mm[Hg] Nicolas Greer TRANSMISSIONS SYSTEMS OPERATOR.COMMERCIAL ANNOUNCER Work Phone: [facility] 04-10-2025 13:37-0400 Heart rate 100 /min Nicolas Greer TRANSMISSIONS SYSTEMS OPERATOR.COMMERCIAL ANNOUNCER Work Phone: [facility] 04-10-2025 13:37-0400 Respiratory rate 16 /min Nicolas Greer TRANSMISSIONS SYSTEMS OPERATOR.COMMERCIAL ANNOUNCER Work Phone: [facility] 04-10-2025 13:37-0400 SaO2% (BldA) [Mass fraction] 99 % Nicolas Greer TRANSMISSIONS SYSTEMS OPERATOR.COMMERCIAL ANNOUNCER Work Phone: [facility] 04-10-2025 13:37-0400 Systolic blood pressure 102 mm[Hg] Nicolas Greer APRN.CNS Work Phone: [facility] 04-10-2025 07:55-0400 Body height 160.[address] Misbah Elkins MD Work Phone: 7(671)663-523857 [place] [address] 04-10-2025 07:55-0400 Body mass index (BMI) [Ratio] 21.7 kg/m2 Dr. Misbah Elkins MD Work Phone: 5(263)422-051057 [place] [address] 04-10-2025 07:55-0400 Body temperature 97.4 [degF] Dr. Misbah Elkins MD Work Phone: 2(686)544-649557 [place] [address] 04-10-2025 07:55-0400 Body weight 55.[address] Misbah Elkins MD Work Phone: 3(873)386-225657 [place] [address] 04-10-2025 07:55-0400 Diastolic blood pressure 71 mm[Hg] Dr. Misbah Elkins MD Work Phone: 4(217)225-357357 [place] [address] 04-10-2025 07:55-0400 Heart rate 103 /min Dr. Misbah Elkins MD Work Phone: 2(242)452-272057 [place] [address] 04-10-2025 07:55-0400 Inhaled oxygen flow rate 3 L/min Dr. Misbah Elkins MD Work Phone: 3(984)488-844757 [place] [address] 04-10-2025 07:55-0400 Respiratory rate 16 /min Dr. Misbah Elkins MD Work Phone: 8(552)035-049357 [place] [address] 04-10-2025 07:55-0400 SaO2% (BldA) [Mass fraction] 95 % Dr. Misbah Elkins MD Work Phone: 7(048)394-702457 [place] [address] 04-10-2025 07:55-0400 Systolic blood pressure 101 mm[Hg] Dr. Misbah Elkins MD Work Phone: 8(251)901-057657 [place] [address] 03-15-2025 21:00-0400 Diastolic blood pressure 63 mm[Hg] Dr. Misbah Elkins MD Work Phone: 1(942)606-116857 [place] [address] 03-15-2025 21:00-0400 Heart rate 105 /min Dr. Misbah Elkins MD Work Phone: 0(782)828-358557 [place] [address] 03-15-2025 21:00-0400 Inhaled oxygen concentration 90 % Dr. Misbah Elkins MD Work Phone: 8(218)091-942157 [place] [address] 03-15-2025 21:00-0400 Respiratory rate 16 /min Dr. Misbah Elkins MD Work Phone: 6(117)993-950357 [place] [address] 03-15-2025 21:00-0400 SaO2% (BldA) [Mass fraction] 96 % Dr. Misbah Elkins MD Work Phone: 3(439)652-739257 [place] [address] 03-15-2025 21:00-0400 Systolic blood pressure 79 mm[Hg] Dr. Misbah Elkins MD Work Phone: 6(502)553-459457 [place] [address] 03-15-2025 12:00-0400 Body temperature 97.8 [degF] Dr. Misbah Elkins MD Work Phone: 2(102)015-102157 [place] [address] 03-15-2025 01:34-0400 Inhaled oxygen flow rate 60 L/min Dr. Misbah Elkins MD Work Phone: 3(785)390-045257 [place] [address] 03-14-2025 14:24-0400 Body height 160.[address] Misbah Elkins MD Work Phone: 2(604)184-336257 [place] [address] 03-14-2025 14:24-0400 Body weight [address] Misbah Elkins MD Work Phone: 7(761)393-102457 [place] [address] 03-14-2025 00:37-0400 Body mass index (BMI) [Ratio] 25 kg/m2 Dr. Misbah Elkins MD Work Phone: 8(331)214-906257 [place] [address] 03-13-2025 23:24-0400 Body temperature 98.7 [degF] Dr. Misbah Elkins MD Work Phone: 6(175)450-455557 [place] [address] 03-13-2025 23:24-0400 Diastolic blood pressure 61 mm[Hg] Dr. Misbah Elkins MD Work Phone: [facility] 03-13-2025 23:24-0400 Heart rate 106 /min Dr. Misbah Elkins MD Work Phone: [facility] 03-13-2025 23:24-0400 Respiratory rate 17 /min Dr. Misbah Elkins MD Work Phone: 2(649)728-240369 [place] [address] 03-13-2025 23:24-0400 SaO2% (BldA) [Mass fraction] 87 % Dr. Misbah Elkins MD Work Phone: 0(586)475-972269 [place] [address] 03-13-2025 23:24-0400 Systolic blood pressure 119 mm[Hg] Dr. Misbah Elkins MD Work Phone: 4(050)456-454957 [place] [address] 03-13-2025 23:00-0400 Inhaled oxygen flow rate 8 L/min Dr. Misbah Elkins MD Work Phone: 3(668)050-904957 [place] [address] 03-13-2025 11:02-0400 Body height 160.[address] Misbah Elkins MD Work Phone: 9(090)002-586157 [place] [address] 03-13-2025 11:02-0400 Body mass index (BMI) [Ratio] 23.3 kg/m2 Dr. Misbah Elkins MD Work Phone: 6(426)574-795157 [place] [address] 03-13-2025 11:02-0400 Body weight 59.[address] Misbah Elkins MD Work Phone: 8(313)608-807869 [place] [address] 03-10-2025 17:00-0400 Diastolic blood pressure 62 mm[Hg] Jane Farrell MD Work Phone: [facility] 03-10-2025 17:00-0400 Heart rate 88 /min Jane Farrell MD Work Phone: [facility] 03-10-2025 17:00-0400 Respiratory rate 18 /min Jane Farrell MD Work Phone: [facility] 03-10-2025 17:00-0400 SaO2% (BldA) [Mass fraction] 94 % Jane Farrell MD Work Phone: [facility] 03-10-2025 17:00-0400 Systolic blood pressure 94 mm[Hg] Jane Farrell MD Work Phone: [facility] 03-10-2025 15:20-0400 Body temperature 97.5 [degF] Jane Farrell MD Work Phone: [facility] 03-10-2025 12:26-0400 Body height 160 cm Jane Farrell MD Work Phone: [facility] 03-10-2025 12:26-0400 Body mass index (BMI) [Ratio] 23.03 kg/m2 Jane Farrell MD Work Phone: [facility] 03-10-2025 12:26-0400 Body weight 58.97 kg Jane Farrell MD Work Phone: [facility] 02-26-2025 15:48-0400 Body temperature 98.7 [degF] Dr. Misbah Elkins MD Work Phone: [facility] 02-26-2025 15:48-0400 Diastolic blood pressure 78 mm[Hg] Dr. Misbah Elkins MD Work Phone: [facility] 02-26-2025 15:48-0400 Heart rate 67 /min Dr. Misbah Elkins MD Work Phone: [facility] 02-26-2025 15:48-0400 Respiratory rate 12 /min Dr. Misbah Elkins MD Work Phone: [facility] 02-26-2025 15:48-0400 SaO2% (BldA) [Mass fraction] 94 % Dr. Misbah Elkins MD Work Phone: [facility] 02-26-2025 15:48-0400 Systolic blood pressure 145 mm[Hg] Dr. Misbah Elkins MD Work Phone: [facility] 02-26-2025 15:07-0400 Inhaled oxygen flow rate 5 L/min Dr. Misbah Elkins MD Work Phone: 5(984)117-525357 [place] [address] 02-26-2025 13:57-0400 Body height 160.[address] Misbah Elkins MD Work Phone: 2(322)754-524757 [place] [address] 02-26-2025 13:57-0400 Body mass index (BMI) [Ratio] 23.9 kg/m2 Dr. Misbah Elkins MD Work Phone: 7(923)703-386057 [place] [address] 02-26-2025 13:57-0400 Body weight 61.[address] Misbah Elkins MD Work Phone: 0(225)838-581157 [place] [address] 02-08-2025 08:20-0400 Body mass index (BMI) [Ratio] 23.7 kg/m2 Dr. Misbah Elkins MD Work Phone: 0(784)008-818157 [place] [address] 02-08-2025 08:20-0400 Body temperature 97.6 [degF] Dr. Misbah Elkins MD Work Phone: 0(325)868-631157 [place] [address] 02-08-2025 08:20-0400 Body weight 60.[address] Misbah Elkins MD Work Phone: 8(143)787-544957 [place] [address] 02-08-2025 08:20-0400 Diastolic blood pressure 67 mm[Hg] Dr. Misbah Elkins MD Work Phone: 6(385)776-628057 [place] [address] 02-08-2025 08:20-0400 Heart rate 87 /min Dr. Misbah Elkins MD Work Phone: 0(248)454-318857 [place] [address] 02-08-2025 08:20-0400 Inhaled oxygen flow rate 5 L/min Dr. Misbah Elkins MD Work Phone: 1(382)248-102357 [place] [address] 02-08-2025 08:20-0400 Respiratory rate 20 /min Dr. Misbah Elkins MD Work Phone: 7(960)487-271757 [place] [address] 02-08-2025 08:20-0400 SaO2% (BldA) [Mass fraction] 92 % Dr. Misbah Elkins MD Work Phone: 4(952)250-287457 [place] [address] 02-08-2025 08:20-0400 Systolic blood pressure 116 mm[Hg] Dr. Misbah Elkins MD Work Phone: 2(474)404-985357 [place] [address] 01-27-2025 12:55-0400 Diastolic blood pressure 76 mm[Hg] Dr. Misbah Elkins MD Work Phone: 4(121)934-343557 [place] [address] 01-27-2025 12:55-0400 Heart rate 93 /min Dr. Misbah Elkins MD Work Phone: 9(442)691-532057 [place] [address] 01-27-2025 12:55-0400 Respiratory rate 18 /min Dr. Misbah Elkins MD Work Phone: 1(282)210-477357 [place] [address] 01-27-2025 12:55-0400 SaO2% (BldA) [Mass fraction] 97 % Dr. Misbah Elkins MD Work Phone: 1(469)837-395157 [place] [address] 01-27-2025 12:55-0400 Systolic blood pressure 162 mm[Hg] Dr. Misbah Elkins MD Work Phone: 1(952)555-608557 [place] [address] 01-27-2025 12:00-0400 Body temperature 97.8 [degF] Dr. Misbah Elkins MD Work Phone: 7(372)920-125557 [place] [address] 01-27-2025 12:00-0400 Inhaled oxygen flow rate 5 L/min Dr. Misbah Elkins MD Work Phone: 4(998)216-436257 [place] [address] 01-27-2025 10:14-0400 Body height 160.[address] Misbah Elkins MD Work Phone: 3(927)907-499257 [place] [address] 01-27-2025 10:14-0400 Body mass index (BMI) [Ratio] 23.5 kg/m2 Dr. Misbah Elkins MD Work Phone: 9(611)786-908957 [place] [address] 01-27-2025 10:14-0400 Body weight 60.[address] Misbah Elkins MD Work Phone: 8(919)295-976957 [place] [address] 01-13-2025 10:51-0400 Body mass index (BMI) [Ratio] 24.45 kg/m2 Soila Easton APRN.CNP Work Phone: 3(523)743-378363 [place] [address] 01-13-2025 10:51-0400 Body weight 62.6 kg Older TRANSMISSIONS SYSTEMS OPERATOR.LEGAL EXECUTIVE ASSISTANT Work Phone: [facility] 01-13-2025 10:51-0400 Diastolic blood pressure 60 mm[Hg] TRANSMISSIONS SYSTEMS OPERATOR.LEGAL EXECUTIVE ASSISTANT Work Phone: [facility] 01-13-2025 10:51-0400 Heart rate 88 /min Soila Older TRANSMISSIONS SYSTEMS OPERATOR.LEGAL EXECUTIVE ASSISTANT Work Phone: [facility] 01-13-2025 10:51-0400 Respiratory rate 16 /min Soila Older TRANSMISSIONS SYSTEMS OPERATOR.LEGAL EXECUTIVE ASSISTANT Work Phone: [facility] 01-13-2025 10:51-0400 SaO2% (BldA) [Mass fraction] 85 % TRANSMISSIONS SYSTEMS OPERATOR.LEGAL EXECUTIVE ASSISTANT Work Phone: [facility] 01-13-2025 10:51-0400 Systolic blood pressure 108 mm[Hg] TRANSMISSIONS SYSTEMS OPERATOR.LEGAL EXECUTIVE ASSISTANT Work Phone: [facility] 01-01-2025 22:15-0400 Body temperature 97.9 [degF] Dr. Misbah Elkins MD Work Phone: 3(189)423-776469 [place] [address] 01-01-2025 22:15-0400 Diastolic blood pressure 70 mm[Hg] Dr. Misbah Elkins MD Work Phone: 3(457)751-498469 [place] [address] 01-01-2025 22:15-0400 Heart rate 108 /min Dr. Misbah Elkins MD Work Phone: [facility] 01-01-2025 22:15-0400 Respiratory rate 24 /min Dr. Misbha Elkins MD Work Phone: [facility] 01-01-2025 22:15-0400 SaO2% (BldA) [Mass fraction] 96 % Dr. Misbah Elkins MD Work Phone: [facility] 01-01-2025 22:15-0400 Systolic blood pressure 104 mm[Hg] Dr. Misbah Elkins MD Work Phone: 8(815)750-455669 [place] [address] 01-01-2025 21:01-0400 Inhaled oxygen flow rate 5 L/min Dr. Misbah Elkins MD Work Phone: 5(203)122-312857 [place] [address] 01-01-2025 20:52-0400 Body mass index (BMI) [Ratio] 24.7 kg/m2 Dr. Misbah Elkins MD Work Phone: 4(576)517-898057 [place] [address] 01-01-2025 20:52-0400 Body weight 63.[address] Misbah Elkins MD Work Phone: 1(646)150-109157 [place] [address] 01-01-2025 20:27-0400 Body height 160.[address] Misbah Elkins MD Work Phone: 2(952)721-495157 [place] [address] 12-24-2024 21:38-0400 Body temperature 97.8 [degF] Dr. Misbah Elkins MD Work Phone: 7(732)237-942557 [place] [address] 12-24-2024 21:38-0400 Diastolic blood pressure 89 mm[Hg] Dr. Misbah Elkins MD Work Phone: 6(894)651-655257 [place] [address] 12-24-2024 21:38-0400 Heart rate 98 /min Dr. Misbah Elkins MD Work Phone: 6(272)374-889857 [place] [address] 12-24-2024 21:38-0400 Respiratory rate 24 /min Dr. Misbah Elkins MD Work Phone: 8(319)274-171757 [place] [address] 12-24-2024 21:38-0400 SaO2% (BldA) [Mass fraction] 98 % Dr. Misbah Elkins MD Work Phone: 8(720)134-009257 [place] [address] 12-24-2024 21:38-0400 Systolic blood pressure 148 mm[Hg] Dr. Misbah Elkins MD Work Phone: 5(246)851-468257 [place] [address] 12-24-2024 20:46-0400 Inhaled oxygen flow rate 5 L/min Dr. Misbah Elkins MD Work Phone: 3(105)219-540357 [place] [address] 12-24-2024 19:39-0400 Body height 160.[address] Misbah Elkins MD Work Phone: 1(288)302-010957 [place] [address] 12-24-2024 19:39-0400 Body mass index (BMI) [Ratio] 24.3 kg/m2 Dr. Misbah Elkins MD Work Phone: 9(403)321-166257 [place] [address] 12-24-2024 19:39-0400 Body weight 62.[address] Misbah Elkins MD Work Phone: 8(902)915-263257 [place] [address] 12-23-2024 08:11-0400 Body mass index (BMI) [Ratio] 24.6 kg/m2 Dr. Misbah Elkins MD Work Phone: 1(642)136-154157 [place] [address] 12-23-2024 08:11-0400 Body temperature 97.4 [degF] Dr. Misbah Elkins MD Work Phone: 5(536)162-184857 [place] [address] 12-23-2024 08:11-0400 Body weight 63.[address] Misbah Elkins MD Work Phone: 2(278)092-294257 [place] [address] 12-23-2024 08:11-0400 Diastolic blood pressure 73 mm[Hg] Dr. Misbah Elkins MD Work Phone: 4(928)868-539557 [place] [address] 12-23-2024 08:11-0400 Heart rate 97 /min Dr. Misbah Elkins MD Work Phone: 1(837)070-348957 [place] [address] 12-23-2024 08:11-0400 Inhaled oxygen flow rate 3 L/min Dr. Misbah Elkins MD Work Phone: 0(329)231-285257 [place] [address] 12-23-2024 08:11-0400 Respiratory rate 22 /min Dr. Misbah Elkins MD Work Phone: 2(693)615-782457 [place] [address] 12-23-2024 08:11-0400 SaO2% (BldA) [Mass fraction] 90 % Dr. Misbah Elkins MD Work Phone: 0(803)527-866857 [place] [address] 12-23-2024 08:11-0400 Systolic blood pressure 153 mm[Hg] Dr. Misbah Elkins MD Work Phone: 0(071)513-332357 [place] [address] 12-19-2024 14:49-0400 Body mass index (BMI) [Ratio] 24.27 kg/m2 Tara Youngblood TRANSMISSIONS SYSTEMS OPERATOR.LEGAL EXECUTIVE ASSISTANT Work Phone: [facility] 12-19-2024 14:49-0400 Body weight 62.14 kg Tara Youngblood TRANSMISSIONS SYSTEMS OPERATOR.LEGAL EXECUTIVE ASSISTANT Work Phone: [facility] 12-19-2024 14:49-0400 Diastolic blood pressure 62 mm[Hg] Tara Youngblood TRANSMISSIONS SYSTEMS OPERATOR.LEGAL EXECUTIVE ASSISTANT Work Phone: [facility] 12-19-2024 14:49-0400 Heart rate 103 /min Tara Youngblood TRANSMISSIONS SYSTEMS OPERATOR.LEGAL EXECUTIVE ASSISTANT Work Phone: [facility] 12-19-2024 14:49-0400 Respiratory rate 16 /min Tara Youngblood TRANSMISSIONS SYSTEMS OPERATOR.LEGAL EXECUTIVE ASSISTANT Work Phone: [facility] 12-19-2024 14:49-0400 SaO2% (BldA) [Mass fraction] 93 % Tara Youngblood TRANSMISSIONS SYSTEMS OPERATOR.LEGAL EXECUTIVE ASSISTANT Work Phone: [facility] Comment on above: on 4 liters 12-19-2024 14:49-0400 Systolic blood pressure 118 mm[Hg] Tara Youngblood TRANSMISSIONS SYSTEMS OPERATOR.LEGAL EXECUTIVE ASSISTANT Work Phone: [facility] 12-12-2024 15:22-0400 Heart rate 87 /min Dr. Misbah Elkins MD Work Phone: [facility] 12-12-2024 15:22-0400 Respiratory rate 18 /min Dr. Misbah Elkins MD Work Phone: [facility] 12-12-2024 14:00-0400 Inhaled oxygen flow rate 3 L/min Dr. Misbah Elkins MD Work Phone: [facility] 12-12-2024 14:00-0400 SaO2% (BldA) [Mass fraction] 93 % Dr. Misbah Elkins MD Work Phone: [facility] 12-12-2024 13:21-0400 Body temperature 99.1 [degF] Dr. Misbah Elkins MD Work Phone: 4(100)688-460457 [place] [address] 12-12-2024 13:21-0400 Diastolic blood pressure 63 mm[Hg] Dr. Misbah Elkins MD Work Phone: 4(009)488-425757 [place] [address] 12-12-2024 13:21-0400 Systolic blood pressure 129 mm[Hg] Dr. Misbah Elkins MD Work Phone: 0(749)261-850957 [place] [address] 12-12-2024 12:07-0400 Inhaled oxygen concentration 56 % Dr. Misbah Elkins MD Work Phone: 4(642)735-802457 [place] [address] 12-12-2024 05:02-0400 Body mass index (BMI) [Ratio] 23.7 kg/m2 Dr. Misbah Elkins MD Work Phone: 6(326)832-329457 [place] [address] 12-12-2024 05:02-0400 Body weight 60.[address] Misbah Elkins MD Work Phone: 9(372)597-504057 [place] [address] 12-11-2024 13:34-0400 Body height 160.[address] Misbah Elkins MD Work Phone: 9(685)735-239957 [place] [address] 12-08-2024 07:52-0400 Inhaled oxygen flow rate 13 L/min Dr. Misbah Elkins MD Work Phone: 6(908)015-490657 [place] [address] 12-08-2024 07:52-0400 SaO2% (BldA) [Mass fraction] 92 % Dr. Misbah Elkins MD Work Phone: 8(495)732-629957 [place] [address] 12-08-2024 07:16-0400 Heart rate 79 /min Dr. Misbah Elkins MD Work Phone: 3(292)945-856657 [place] [address] 12-08-2024 07:16-0400 Respiratory rate 20 /min Dr. Misbah Elkins MD Work Phone: 4(356)865-791057 [place] [address] 12-08-2024 06:00-0400 Body mass index (BMI) [Ratio] 23.8 kg/m2 Dr. Misbah Elkins MD Work Phone: 6(328)617-351957 [place] [address] 12-08-2024 06:00-0400 Body weight 61.[address] Misbah Elkins MD Work Phone: 7(770)811-642557 [place] [address] 12-08-2024 04:47-0400 Body temperature 97.8 [degF] Dr. Misbah Elkins MD Work Phone: 1(032)082-224857 [place] [address] 12-08-2024 04:47-0400 Diastolic blood pressure 59 mm[Hg] Dr. Misbah Elkins MD Work Phone: 4(866)228-663957 [place] [address] 12-08-2024 04:47-0400 Systolic blood pressure 106 mm[Hg] Dr. Misbah Elkins MD Work Phone: 6(753)328-628657 [place] [address] 12-07-2024 08:56-0400 Inhaled oxygen concentration 56 % Dr. Misbah Elkins MD Work Phone: 8(365)320-559757 [place] [address] 12-06-2024 12:53-0400 Body height 160.[address] Misbah Elkins MD Work Phone: 5(625)447-317257 [place] [address] 12-04-2024 19:00-0400 Heart rate 101 /min Dr. Misbah Elkins MD Work Phone: 1(993)947-703357 [place] [address] 12-04-2024 19:00-0400 Respiratory rate 23 /min Dr. Misbah Elkins MD Work Phone: 4(691)823-954557 [place] [address] 12-04-2024 19:00-0400 SaO2% (BldA) [Mass fraction] 94 % Dr. Misbah Elkins MD Work Phone: 0(283)[phone] [place] [address] 12-04-2024 18:06-0400 Body temperature 97.7 [degF] Dr. Misbah Elkins MD Work Phone: 5(163)[phone] [place] [address] 12-04-2024 18:06-0400 Diastolic blood pressure 93 mm[Hg] Dr. Misbah Elkins MD Work Phone: 1(776)[phone] [place] [address] 12-04-2024 18:06-0400 Systolic blood pressure 129 mm[Hg] Dr. Misbah Elkins MD Work Phone: 1(716)[phone] [place] [address] 12-04-2024 18:00-0400 Inhaled oxygen flow rate 5 L/min Dr. Misbha Elkins MD Work Phone: [facility] 12-04-2024 15:51-0400 Body height 160.[address] Misbah Elkins MD Work Phone: [facility] 12-04-2024 15:51-0400 Body mass index (BMI) [Ratio] 23 kg/m2 Dr. Misbah Elkins MD Work Phone: [facility] 12-04-2024 15:51-0400 Body weight 58.[address] Misbah Elkins MD Work Phone: [facility] 12-01-2024 12:20-0500 Heart rate 90 /min Jane Farrell MD Work Phone: [facility] 12-01-2024 12:20-0500 Respiratory rate 16 /min Jane Farrell MD Work Phone: [facility] 12-01-2024 12:20-0500 SaO2% (BldA) [Mass fraction] 89 % Jane Farrell MD Work Phone: [facility] 12-01-2024 12:10-0500 Diastolic blood pressure 66 mm[Hg] Jane Farrell MD Work Phone: [facility] 12-01-2024 12:10-0500 Systolic blood pressure 97 mm[Hg] Jane Farrell MD Work Phone: [facility] 12-01-2024 10:46-0500 Body temperature 97.3 [degF] Jane Farrell MD Work Phone: [facility] 11-07-2024 14:03-0500 Body temperature 97.3 [degF] Misbah Elkins MD Work Phone: [facility] 11-07-2024 14:03-0500 Diastolic blood pressure 53 mm[Hg] Misbah Elkins MD Work Phone: [facility] 11-07-2024 14:03-0500 Heart rate 81 /min Misbah Elkins MD Work Phone: [facility] 11-07-2024 14:03-0500 Respiratory rate 20 /min Misbah Elkins MD Work Phone: [facility] 11-07-2024 14:03-0500 SaO2% (BldA) [Mass fraction] 93 % Misbah Elkins MD Work Phone: [facility] 11-07-2024 14:03-0500 Systolic blood pressure 83 mm[Hg] Misbah Elkins MD Work Phone: [facility] 11-02-2024 13:57-0500 Body height 160 cm Juan Nadeen TRANSMISSIONS SYSTEMS OPERATOR.LEGAL EXECUTIVE ASSISTANT Work Phone: [facility] 11-02-2024 13:57-0500 Body mass index (BMI) [Ratio] 24.45 kg/m2 Juan Nadeen TRANSMISSIONS SYSTEMS OPERATOR.LEGAL EXECUTIVE ASSISTANT Work Phone: [facility] 11-02-2024 13:57-0500 Body weight 62.6 kg Juan Nadeen TRANSMISSIONS SYSTEMS OPERATOR.LEGAL EXECUTIVE ASSISTANT Work Phone: [facility] 11-02-2024 13:57-0500 Diastolic blood pressure 71 mm[Hg] Juan Nadeen TRANSMISSIONS SYSTEMS OPERATOR.LEGAL EXECUTIVE ASSISTANT Work Phone: [facility] 11-02-2024 13:57-0500 Heart rate 84 /min Juan Nadeen TRANSMISSIONS SYSTEMS OPERATOR.LEGAL EXECUTIVE ASSISTANT Work Phone: [facility] 11-02-2024 13:57-0500 SaO2% (BldA) [Mass fraction] 97 % Juan Nadeen TRANSMISSIONS SYSTEMS OPERATOR.LEGAL EXECUTIVE ASSISTANT Work Phone: [facility] Comment on above: 97 2L 11-02-2024 13:57-0500 Systolic blood pressure 140 mm[Hg] Juan Nadeen TRANSMISSIONS SYSTEMS OPERATOR.LEGAL EXECUTIVE ASSISTANT Work Phone: [facility] 08-15-2024 11:31-0500 Body mass index (BMI) [Ratio] 25.15 kg/m2 Soila Older TRANSMISSIONS SYSTEMS OPERATOR.LEGAL EXECUTIVE ASSISTANT Work Phone: [facility] 08-15-2024 11:31-0500 Body weight 64.41 kg Soila Older TRANSMISSIONS SYSTEMS OPERATOR.LEGAL EXECUTIVE ASSISTANT Work Phone: [facility] 08-15-2024 11:31-0500 Diastolic blood pressure 78 mm[Hg] Soila Older TRANSMISSIONS SYSTEMS OPERATOR.LEGAL EXECUTIVE ASSISTANT Work Phone: [facility] 08-15-2024 11:31-0500 Heart rate 80 /min Soila Older TRANSMISSIONS SYSTEMS OPERATOR.LEGAL EXECUTIVE ASSISTANT Work Phone: [facility] 08-15-2024 11:31-0500 Respiratory rate 16 /min Soila Older TRANSMISSIONS SYSTEMS OPERATOR.LEGAL EXECUTIVE ASSISTANT Work Phone: [facility] 08-15-2024 11:31-0500 SaO2% (BldA) [Mass fraction] 93 % Soila Older TRANSMISSIONS SYSTEMS OPERATOR.LEGAL EXECUTIVE ASSISTANT Work Phone: [facility] 08-15-2024 11:31-0500 Systolic blood pressure 112 mm[Hg] Soila Older TRANSMISSIONS SYSTEMS OPERATOR.LEGAL EXECUTIVE ASSISTANT Work Phone: [facility] 08-10-2024 16:58-0500 Body mass index (BMI) [Ratio] 25.15 kg/m2 Soila Older TRANSMISSIONS SYSTEMS OPERATOR.LEGAL EXECUTIVE ASSISTANT Work Phone: [facility] 08-10-2024 16:58-0500 Body weight 64.41 kg Soila Older TRANSMISSIONS SYSTEMS OPERATOR.LEGAL EXECUTIVE ASSISTANT Work Phone: [facility] 08-10-2024 16:58-0500 Diastolic blood pressure 80 mm[Hg] Soila Older TRANSMISSIONS SYSTEMS OPERATOR.LEGAL EXECUTIVE ASSISTANT Work Phone: [facility] 08-10-2024 16:58-0500 Heart rate 96 /min Soila Older TRANSMISSIONS SYSTEMS OPERATOR.LEGAL EXECUTIVE ASSISTANT Work Phone: [facility] 08-10-2024 16:58-0500 Respiratory rate 16 /min Soila Older TRANSMISSIONS SYSTEMS OPERATOR.LEGAL EXECUTIVE ASSISTANT Work Phone: [facility] 08-10-2024 16:58-0500 SaO2% (BldA) [Mass fraction] 92 % Soila Older TRANSMISSIONS SYSTEMS OPERATOR.LEGAL EXECUTIVE ASSISTANT Work Phone: [facility] 08-10-2024 16:58-0500 Systolic blood pressure 118 mm[Hg] Soila Older TRANSMISSIONS SYSTEMS OPERATOR.LEGAL EXECUTIVE ASSISTANT Work Phone: [facility] 08-05-2024 15:36-0500 Body mass index (BMI) [Ratio] 25.38 kg/m2 Misbah Elkins MD Work Phone: [facility] 08-05-2024 15:36-0500 Body weight 65 kg Misbah Elkins MD Work Phone: [facility] 08-05-2024 15:36-0500 Diastolic blood pressure 72 mm[Hg] Misbah Elkins MD Work Phone: [facility] 08-05-2024 15:36-0500 Heart rate 91 /min Misbah Elkins MD Work Phone: [facility] 08-05-2024 15:36-0500 SaO2% (BldA) [Mass fraction] 95 % Misbah Elkins MD Work Phone: [facility] 08-05-2024 15:36-0500 Systolic blood pressure 118 mm[Hg] Misbah Elkins MD Work Phone: [facility] 05-18-2024 16:31-0400 Body mass index (BMI) [Ratio] 23.56 kg/m2 Misbah Elkins MD Work Phone: [facility] 05-18-2024 16:31-0400 Body weight 60.33 kg Misbah Elkins MD Work Phone: [facility] 05-18-2024 16:31-0400 Diastolic blood pressure 72 mm[Hg] Misbah Elkins MD Work Phone: [facility] 05-18-2024 16:31-0400 Heart rate 76 /min Misbah Elkins MD Work Phone: [facility] 05-18-2024 16:31-0400 Respiratory rate 16 /min Misbah Elkins MD Work Phone: [facility] 05-18-2024 16:31-0400 Systolic blood pressure 128 mm[Hg] Misbah Elkins MD Work Phone: [facility] 01-25-2024 14:02-0400 Body mass index (BMI) [Ratio] 24.45 kg/m2 Tara Youngblood TRANSMISSIONS SYSTEMS OPERATOR.LEGAL EXECUTIVE ASSISTANT Work Phone: [facility] 01-25-2024 14:02-0400 Body temperature 99.19 [degF] Tara Youngblood TRANSMISSIONS SYSTEMS OPERATOR.LEGAL EXECUTIVE ASSISTANT Work Phone: [facility] 01-25-2024 14:02-0400 Body weight 62.6 kg Tara Youngblood TRANSMISSIONS SYSTEMS OPERATOR.LEGAL EXECUTIVE ASSISTANT Work Phone: [facility] 01-25-2024 14:02-0400 Diastolic blood pressure 70 mm[Hg] Tara Youngblood TRANSMISSIONS SYSTEMS OPERATOR.LEGAL EXECUTIVE ASSISTANT Work Phone: [facility] 01-25-2024 14:02-0400 Heart rate 108 /min Tara Youngblood TRANSMISSIONS SYSTEMS OPERATOR.LEGAL EXECUTIVE ASSISTANT Work Phone: [facility] 01-25-2024 14:02-0400 SaO2% (BldA) [Mass fraction] 95 % Tara Youngblood TRANSMISSIONS SYSTEMS OPERATOR.LEGAL EXECUTIVE ASSISTANT Work Phone: [facility] Comment on above: 3L [place] 01-25-2024 14:02-0400 Systolic blood pressure 170 mm[Hg] Tara Youngblood TRANSMISSIONS SYSTEMS OPERATOR.LEGAL EXECUTIVE ASSISTANT Work Phone: [facility] 01-19-2024 23:56-0400 Body temperature 97.9 [degF] Dr. Víctor Huerta Work Phone: [facility] 01-19-2024 23:56-0400 Diastolic blood pressure 81 mm[Hg] Dr. Víctor Huerta Work Phone: [facility] 01-19-2024 23:56-0400 Heart rate 105 /min Dr. Víctor Huerta Work Phone: [facility] 01-19-2024 23:56-0400 Respiratory rate 20 /min Dr. Víctor Huerta Work Phone: [facility] 01-19-2024 23:56-0400 SaO2% (BldA) [Mass fraction] 95 % Dr. Víctor Huerta Work Phone: [facility] 01-19-2024 23:56-0400 Systolic blood pressure 174 mm[Hg] Dr. Víctor Huerta Work Phone: [facility] 01-19-2024 22:07-0400 Body height 160.[address] Víctor Huerta Work Phone: [facility] 01-19-2024 22:07-0400 Body mass index (BMI) [Ratio] 24.5 kg/m2 Dr. Víctor Huerta Work Phone: [facility] 01-19-2024 22:07-0400 Body weight 62.[address] Víctor Huerta Work Phone: [facility] 01-12-2024 11:30-0400 Heart rate 96 /min Anat PulidoBrock TRANSMISSIONS SYSTEMS OPERATOR.LEGAL EXECUTIVE ASSISTANT Work Phone: [facility] 01-12-2024 11:08-0400 Body weight 61.69 kg Anat Gutiérrez TRANSMISSIONS SYSTEMS OPERATOR.LEGAL EXECUTIVE ASSISTANT Work Phone: [facility] 01-12-2024 11:08-0400 Diastolic blood pressure 68 mm[Hg] Anat PulidoBrock TRANSMISSIONS SYSTEMS OPERATOR.LEGAL EXECUTIVE ASSISTANT Work Phone: [facility] 01-12-2024 11:08-0400 Respiratory rate 18 /min Anat Gutiérrez TRANSMISSIONS SYSTEMS OPERATOR.LEGAL EXECUTIVE ASSISTANT Work Phone: [facility] 01-12-2024 11:08-0400 SaO2% (BldA) [Mass fraction] 90 % Anat PulidoRbock TRANSMISSIONS SYSTEMS OPERATOR.LEGAL EXECUTIVE ASSISTANT Work Phone: [facility] 01-12-2024 11:08-0400 Systolic blood pressure 96 mm[Hg] Anat Brock TRANSMISSIONS SYSTEMS OPERATOR.LEGAL EXECUTIVE ASSISTANT Work Phone: [facility] 01-05-2024 11:24-0400 Body temperature 97.8 [degF] Dr. Víctor Huerta Work Phone: [facility] 01-05-2024 11:24-0400 Diastolic blood pressure 99 mm[Hg] Dr. Víctor Huerta Work Phone: [facility] 01-05-2024 11:24-0400 Heart rate 98 /min Dr. Víctor Huerta Work Phone: [facility] 01-05-2024 11:24-0400 Inhaled oxygen flow rate 2 L/min Dr. Víctor Huerta Work Phone: [facility] 01-05-2024 11:24-0400 Respiratory rate 18 /min Dr. Víctor Huerta Work Phone: [facility] 01-05-2024 11:24-0400 SaO2% (BldA) [Mass fraction] 92 % Dr. Víctor Huerta Work Phone: [facility] 01-05-2024 11:24-0400 Systolic blood pressure 155 mm[Hg] Dr. Víctor Huerta Work Phone: [facility] 01-05-2024 05:32-0400 Body mass index (BMI) [Ratio] 23.2 kg/m2 Dr. Víctor Huerta Work Phone: [facility] 01-05-2024 05:32-0400 Body weight 59.[address] Víctor Huerta Work Phone: [facility] 01-04-2024 11:11-0400 Body height 160.[address] Víctor Huerta Work Phone: [facility] 01-02-2024 22:48-0400 Body temperature 98.7 [degF] [facility] 01-02-2024 22:48-0400 Diastolic blood pressure 81 mm[Hg] [facility] 01-02-2024 22:48-0400 Heart rate 115 /min [facility] 01-02-2024 22:48-0400 Respiratory rate 21 /min [facility] 01-02-2024 22:48-0400 SaO2% (BldA) [Mass fraction] 93 % [facility] 01-02-2024 22:48-0400 Systolic blood pressure 102 mm[Hg] [facility] 01-02-2024 22:00-0400 Inhaled oxygen flow rate 2 L/min [facility] 01-02-2024 18:57-0400 Body height 160.02 cm [facility] 01-02-2024 18:57-0400 Body mass index (BMI) [Ratio] 23.9 kg/m2 [facility] 01-02-2024 18:57-0400 Body weight 61.23 kg [facility] 12-16-2023 14:13-0400 Body weight 61.05 kg Candie Denbow PA-C Work Phone: [facility] 12-16-2023 14:13-0400 Diastolic blood pressure 74 mm[Hg] Candie Denbow PA-C Work Phone: [facility] 12-16-2023 14:13-0400 Heart rate 130 /min Candie Denbow PA-C Work Phone: [facility] 12-16-2023 14:13-0400 Respiratory rate 18 /min Candie Denbow PA-C Work Phone: [facility] 12-16-2023 14:13-0400 SaO2% (BldA) [Mass fraction] 95 % Candie Denbow PA-C Work Phone: [facility] 12-16-2023 14:13-0400 Systolic blood pressure 124 mm[Hg] Candie Denbow PA-C Work Phone: [facility] 07-08-2023 20:38-0400 Diastolic blood pressure 68 mm[Hg] MINI LAB OPERATOR-C SOILA OLDER Work Phone: [facility] 07-08-2023 20:38-0400 Respiratory rate 20 /min MINI LAB OPERATOR-C SOILA OLDER Work Phone: [facility] 07-08-2023 20:38-0400 SaO2% (BldA) [Mass fraction] 97 % MINI LAB OPERATOR-C SOILA OLDER Work Phone: [facility] 07-08-2023 20:38-0400 Systolic blood pressure 150 mm[Hg] MINI LAB OPERATOR-C SOILA OLDER Work Phone: [facility] 07-08-2023 18:57-0400 Heart rate 103 /min MINI LAB OPERATOR-C SOILA OLDER Work Phone: [facility] 07-08-2023 18:11-0400 Body height 160.02 cm MINI LAB OPERATOR-C SOILA OLDER Work Phone: [facility] 07-08-2023 18:11-0400 Body mass index (BMI) [Ratio] 23.9 kg/m2 MINI LAB OPERATOR-C SOILA OLDER Work Phone: 7(723)[phone] [place] [address] 07-08-2023 18:11-0400 Body temperature 98.1 [degF] MINI LAB OPERATOR-C SOILA OLDER Work Phone: 8(216)[phone] [place] [address] 07-08-2023 18:11-0400 Body weight 61.23 kg MINI LAB OPERATOR-C SOILA OLDER Work Phone: 0(467)[phone] [place] [address] 06-30-2023 07:55-0400 Body mass index (BMI) [Ratio] 23.3 kg/m2 MINI LAB OPERATOR-C SOILA OLDER Work Phone: 7(014)[phone] [place] [address] 06-30-2023 07:55-0400 Body temperature 97.4 [degF] MINI LAB OPERATOR-C SOILA OLDER Work Phone: 4(308)[phone] [place] [address] 06-30-2023 07:55-0400 Body weight 59.87 kg MINI LAB OPERATOR-C SOILA OLDER Work Phone: 2(427)[phone] [place] [address] 06-30-2023 07:55-0400 Diastolic blood pressure 87 mm[Hg] MINI LAB OPERATOR-C SOILA OLDER Work Phone: 1(074)884-147069 [place] [address] 06-30-2023 07:55-0400 Heart rate 98 /min MINI LAB OPERATOR-C SOILA OLDER Work Phone: [facility] 06-30-2023 07:55-0400 Respiratory rate 20 /min MINI LAB OPERATOR-C SOILA OLDER Work Phone: [facility] 06-30-2023 07:55-0400 SaO2% (BldA) [Mass fraction] 94 % MINI LAB OPERATOR-C SOILA OLDER Work Phone: [facility] 06-30-2023 07:55-0400 Systolic blood pressure 150 mm[Hg] MINI LAB OPERATOR-C SOILA OLDER Work Phone: [facility] 06-02-2023 15:01-0400 Body height 160.02 cm [facility] 06-02-2023 15:01-0400 Body mass index (BMI) [Ratio] 23 kg/m2 [facility] 06-02-2023 15:01-0400 Body temperature 97.2 [degF] [facility] 06-02-2023 15:01-0400 Body weight 58.96 kg [facility] 06-02-2023 15:01-0400 Diastolic blood pressure 99 mm[Hg] [facility] 06-02-2023 15:01-0400 Heart rate 100 /min [facility] 06-02-2023 15:01-0400 Respiratory rate 17 /min [facility] 06-02-2023 15:01-0400 SaO2% (BldA) [Mass fraction] 95 % [facility] 06-02-2023 15:01-0400 Systolic blood pressure 148 mm[Hg] [facility] 04-15-2023 12:39-0400 Body height 160 cm Candie Denbow PA-C Work Phone: [facility] 04-15-2023 12:39-0400 Body temperature 97.2 [degF] Candie Denbow PA-C Work Phone: [facility] 04-15-2023 12:39-0400 Body weight 59.42 kg Candie Denbow PA-C Work Phone: [facility] 04-15-2023 12:39-0400 Diastolic blood pressure 52 mm[Hg] Candie Denbow PA-C Work Phone: [facility] 04-15-2023 12:39-0400 Heart rate 104 /min Candie Denbow PA-C Work Phone: [facility] 04-15-2023 12:39-0400 Respiratory rate 16 /min Candie Denbow PA-C Work Phone: [facility] 04-15-2023 12:39-0400 SaO2% (BldA) [Mass fraction] 94 % Candie Denbow PA-C Work Phone: [facility] 04-15-2023 12:39-0400 Systolic blood pressure 104 mm[Hg] Candie Denbow PA-C Work Phone: [facility] 11-28-2022 13:00-0500 Body temperature 98.01 [degF] Soila Older TRANSMISSIONS SYSTEMS OPERATOR.LEGAL EXECUTIVE ASSISTANT Work Phone: [facility] 11-28-2022 13:00-0500 Body weight 58.51 kg Soila Older TRANSMISSIONS SYSTEMS OPERATOR.LEGAL EXECUTIVE ASSISTANT Work Phone: [facility] 11-28-2022 13:00-0500 Diastolic blood pressure 62 mm[Hg] Soila Older TRANSMISSIONS SYSTEMS OPERATOR.LEGAL EXECUTIVE ASSISTANT Work Phone: [facility] 11-28-2022 13:00-0500 Heart rate 108 /min Soila Older TRANSMISSIONS SYSTEMS OPERATOR.LEGAL EXECUTIVE ASSISTANT Work Phone: [facility] 11-28-2022 13:00-0500 Respiratory rate 16 /min Soila Older TRANSMISSIONS SYSTEMS OPERATOR.LEGAL EXECUTIVE ASSISTANT Work Phone: [facility] 11-28-2022 13:00-0500 SaO2% (BldA) [Mass fraction] 96 % Soila Older TRANSMISSIONS SYSTEMS OPERATOR.LEGAL EXECUTIVE ASSISTANT Work Phone: [facility] 11-28-2022 13:00-0500 Systolic blood pressure 98 mm[Hg] Soila Older TRANSMISSIONS SYSTEMS OPERATOR.LEGAL EXECUTIVE ASSISTANT Work Phone: [facility] 11-26-2022 13:13-0500 Body temperature 98.8 [degF] Mariluz Verduzco PA-C Work Phone: [facility] 11-26-2022 13:13-0500 Body weight 58.7 kg Mariluz Verduzco PA-C Work Phone: [facility] 11-26-2022 13:13-0500 Diastolic blood pressure 63 mm[Hg] Mariluz Teraner PA-C Work Phone: [facility] 11-26-2022 13:13-0500 Heart rate 111 /min Mariluz Teraner PA-C Work Phone: [facility] 11-26-2022 13:13-0500 Respiratory rate 24 /min Mariluz Teraner PA-C Work Phone: [facility] 11-26-2022 13:13-0500 SaO2% (BldA) [Mass fraction] 96 % Mariluz Teraner PA-C Work Phone: [facility] 11-26-2022 13:13-0500 Systolic blood pressure 96 mm[Hg] Mariluz Teraner PA-C Work Phone: [facility] 11-25-2022 09:50-0500 Body height 160 cm Misbah Elkins MD Work Phone: [facility] 11-25-2022 09:50-0500 Body temperature 97.5 [degF] Misbah Elkins MD Work Phone: [facility] 11-25-2022 09:50-0500 Body weight 58.97 kg Misbah Elkins MD Work Phone: [facility] 11-25-2022 09:50-0500 Diastolic blood pressure 60 mm[Hg] Misbah Elkins MD Work Phone: [facility] 11-25-2022 09:50-0500 Heart rate 111 /min Misbah Elkins MD Work Phone: [facility] 11-25-2022 09:50-0500 Respiratory rate 16 /min Misbah Elkins MD Work Phone: [facility] 11-25-2022 09:50-0500 SaO2% (BldA) [Mass fraction] 97 % Misbah Elkins MD Work Phone: [facility] 11-25-2022 09:50-0500 Systolic blood pressure 132 mm[Hg] Misbah Elkins MD Work Phone: [facility] 11-11-2022 15:59-0500 Body height 160 cm Misbah Elkins MD Work Phone: [facility] 11-11-2022 15:59-0500 Body temperature 97.7 [degF] Misbah Elkins MD Work Phone: [facility] 11-11-2022 15:59-0500 Body weight 58.97 kg Misbah Elkins MD Work Phone: [facility] 11-11-2022 15:59-0500 Diastolic blood pressure 56 mm[Hg] Misbah Elkins MD Work Phone: [facility] 11-11-2022 15:59-0500 Heart rate 96 /min Misbah Elkins MD Work Phone: [facility] 11-11-2022 15:59-0500 Respiratory rate 12 /min Misbah Elkins MD Work Phone: [facility] 11-11-2022 15:59-0500 SaO2% (BldA) [Mass fraction] 99 % Misbah Elkins MD Work Phone: [facility] 11-11-2022 15:59-0500 Systolic blood pressure 108 mm[Hg] Misbah Elkins MD Work Phone: [facility] 11-07-2022 13:41-0500 Heart rate 96 /min MINI LAB OPERATOR-C SOILA OLDER Work Phone: [facility] 11-07-2022 13:41-0500 Inhaled oxygen flow rate 2 L/min MINI LAB OPERATOR-C SOILA OLDER Work Phone: [facility] 11-07-2022 13:41-0500 Respiratory rate 20 /min MINI LAB OPERATOR-C SOILA OLDER Work Phone: [facility] 11-07-2022 13:41-0500 SaO2% (BldA) [Mass fraction] 95 % MINI LAB OPERATOR-C SOILA OLDER Work Phone: [facility] 11-07-2022 09:20-0500 Body temperature 98 [degF] MINI LAB OPERATOR-C SOILA OLDER Work Phone: [facility] 11-07-2022 09:20-0500 Diastolic blood pressure 85 mm[Hg] MINI LAB OPERATOR-C SOILA OLDER Work Phone: [facility] 11-07-2022 09:20-0500 Systolic blood pressure 126 mm[Hg] MINI LAB OPERATOR-C SOILA OLDER Work Phone: [facility] 11-07-2022 06:00-0500 Body weight 62.2 kg MINI LAB OPERATOR-C SOILA OLDER Work Phone: [facility] 11-05-2022 10:20-0500 Body height 160.02 cm MINI LAB OPERATOR-C SOILA OLDER Work Phone: [facility] 11-05-2022 07:21-0500 Inhaled oxygen concentration 30 % MINI LAB OPERATOR-C SOILA OLDER Work Phone: [facility] 11-03-2022 08:46-0500 Body height 160 cm Misbah Elkins MD Work Phone: [facility] 11-03-2022 08:46-0500 Body temperature 98.1 [degF] Misbah Elkins MD Work Phone: [facility] 11-03-2022 08:46-0500 Body weight 59.88 kg Misbah Elkins MD Work Phone: [facility] 11-03-2022 08:46-0500 Diastolic blood pressure 60 mm[Hg] Misbah Elkins MD Work Phone: [facility] 11-03-2022 08:46-0500 Heart rate 101 /min Misbah Elkins MD Work Phone: [facility] 11-03-2022 08:46-0500 Respiratory rate 20 /min Misbah Elkins MD Work Phone: [facility] 11-03-2022 08:46-0500 SaO2% (BldA) [Mass fraction] 94 % Misbah Elkins MD Work Phone: [facility] 11-03-2022 08:46-0500 Systolic blood pressure 140 mm[Hg] Misbah Elkins MD Work Phone: [facility] 11-01-2022 23:22-0500 Body mass index (BMI) [Ratio] 23.7 kg/m2 MINI LAB OPERATOR-C SOILA OLDER Work Phone: [facility] 10-29-2022 07:12-0500 Body temperature 97.7 [degF] Text Entry Free [facility] 10-29-2022 07:12-0500 Diastolic blood pressure 63 mm[Hg] Text Entry Free [facility] 10-29-2022 07:12-0500 Heart rate 69 /min Text Entry Free [facility] 10-29-2022 07:12-0500 Respiratory rate 18 /min Text Entry Free [facility] 10-29-2022 07:12-0500 SaO2% (BldA) [Mass fraction] 97 % Text Entry Free [facility] 10-29-2022 07:12-0500 Systolic blood pressure 100 mm[Hg] Text Entry Free [facility] 10-20-2022 07:01-0500 Body temperature 9 [degF] MINI LAB OPERATOR-C SOILA OLDER Work Phone: [facility] 10-20-2022 07:01-0500 Diastolic blood pressure 74 mm[Hg] MINI LAB OPERATOR-C SOILA OLDER Work Phone: [facility] 10-20-2022 07:01-0500 Heart rate 99 /min MINI LAB OPERATOR-C SOILA OLDER Work Phone: [facility] 10-20-2022 07:01-0500 Respiratory rate 15 /min MINI LAB OPERATOR-C SOILA OLDER Work Phone: [facility] 10-20-2022 07:01-0500 SaO2% (BldA) [Mass fraction] 94 % MINI LAB OPERATOR-C SOILA OLDER Work Phone: [facility] 10-20-2022 07:01-0500 Systolic blood pressure 167 mm[Hg] MINI LAB OPERATOR-C SOILA OLDER Work Phone: [facility] 10-19-2022 18:57-0500 Body height 160.02 cm MINI LAB OPERATOR-C SOILA OLDER Work Phone: [facility] 10-19-2022 18:57-0500 Body mass index (BMI) [Ratio] 23.6 kg/m2 MINI LAB OPERATOR-C SOILA OLDER Work Phone: [facility] 10-19-2022 18:57-0500 Body weight 60.32 kg MINI LAB OPERATOR-C SOILA OLDER Work Phone: [facility] 09-05-2022 13:43-0500 Body mass index (BMI) [Ratio] 23.4 kg/m2 MINI LAB OPERATOR-C SOILA OLDER Work Phone: 6(310)244-[address]69 [place] [address] 09-05-2022 13:43-0500 Body temperature 98.4 [degF] MINI LAB OPERATOR-C SOILA OLDER Work Phone: [facility] 09-05-2022 13:43-0500 Body weight 60.04 kg MINI LAB OPERATOR-C SOILA OLDER Work Phone: 0(330)[phone] [place] [address] 09-05-2022 13:43-0500 Diastolic blood pressure 74 mm[Hg] MINI LAB OPERATOR-C SOILA OLDER Work Phone: 8(732)050-976069 [place] [address] 09-05-2022 13:43-0500 Heart rate 93 /min MINI LAB OPERATOR-C SOILA OLDER Work Phone: 8(680)797-711069 [place] [address] 09-05-2022 13:43-0500 Inhaled oxygen flow rate 2 L/min MINI LAB OPERATOR-C SOILA OLDER Work Phone: 5(940)335-780769 [place] [address] 09-05-2022 13:43-0500 Respiratory rate 18 /min MINI LAB OPERATOR-C SOILA OLDER Work Phone: 9(424)[phone] [place] [address] 09-05-2022 13:43-0500 SaO2% (BldA) [Mass fraction] 96 % MINI LAB OPERATOR-C SOILA OLDER Work Phone: [facility] 09-05-2022 13:43-0500 Systolic blood pressure 104 mm[Hg] MINI LAB OPERATOR-C SOILA OLDER Work Phone: [facility] 08-27-2022 12:49-0500 Body temperature 98.29 [degF] Soila Older TRANSMISSIONS SYSTEMS OPERATOR.LEGAL EXECUTIVE ASSISTANT Work Phone: [facility] 08-27-2022 12:49-0500 Body weight 59.88 kg Soila Older TRANSMISSIONS SYSTEMS OPERATOR.LEGAL EXECUTIVE ASSISTANT Work Phone: [facility] 08-27-2022 12:49-0500 Diastolic blood pressure 80 mm[Hg] Soila Older TRANSMISSIONS SYSTEMS OPERATOR.LEGAL EXECUTIVE ASSISTANT Work Phone: [facility] [facility] 08-27-2022 12:49-0500 Heart rate 80 /min Soila Older TRANSMISSIONS SYSTEMS OPERATOR.LEGAL EXECUTIVE ASSISTANT Work Phone: [facility] 08-27-2022 12:49-0500 Respiratory rate 16 /min Soila Older TRANSMISSIONS SYSTEMS OPERATOR.LEGAL EXECUTIVE ASSISTANT Work Phone: [facility] 08-27-2022 12:49-0500 SaO2% (BldA) [Mass fraction] 82 % Soila Older TRANSMISSIONS SYSTEMS OPERATOR.LEGAL EXECUTIVE ASSISTANT Work Phone: [facility] 08-27-2022 12:49-0500 Systolic blood pressure 132 mm[Hg] Soila Older TRANSMISSIONS SYSTEMS OPERATOR.LEGAL EXECUTIVE ASSISTANT Work Phone: [facility] 08-22-2022 19:41-0500 Diastolic blood pressure 91 mm[Hg] MINI LAB OPERATOR-C SOILA OLDER Work Phone: [facility] 08-22-2022 19:41-0500 Heart rate 100 /min MINI LAB OPERATOR-C SOILA OLDER Work Phone: [facility] 08-22-2022 19:41-0500 Respiratory rate 24 /min MINI LAB OPERATOR-C SOILA OLDER Work Phone: [facility] 08-22-2022 19:41-0500 SaO2% (BldA) [Mass fraction] 93 % MINI LAB OPERATOR-C SOILA OLDER Work Phone: [facility] 08-22-2022 19:41-0500 Systolic blood pressure 146 mm[Hg] MINI LAB OPERATOR-C SOILA OLDER Work Phone: [facility] 08-22-2022 18:11-0500 Body temperature 97.8 [degF] MINI LAB OPERATOR-C SOILA OLDER Work Phone: [facility] 08-22-2022 18:11-0500 Inhaled oxygen flow rate 2 L/min MINI LAB OPERATOR-C SOILA OLDER Work Phone: [facility] 08-22-2022 16:06-0500 Body mass index (BMI) [Ratio] 23.5 kg/m2 MINI LAB OPERATOR-C SOILA OLDER Work Phone: [facility] 08-22-2022 16:06-0500 Body weight 60.2 kg MINI LAB OPERATOR-C SOILA OLDER Work Phone: [facility] 07-18-2022 09:56-0400 Body weight 60.33 kg Soila Older TRANSMISSIONS SYSTEMS OPERATOR.LEGAL EXECUTIVE ASSISTANT Work Phone: [facility] 07-18-2022 09:56-0400 Diastolic blood pressure 72 mm[Hg] Soila Older TRANSMISSIONS SYSTEMS OPERATOR.LEGAL EXECUTIVE ASSISTANT Work Phone: [facility] 07-18-2022 09:56-0400 Heart rate 72 /min Soila Older TRANSMISSIONS SYSTEMS OPERATOR.LEGAL EXECUTIVE ASSISTANT Work Phone: [facility] 07-18-2022 09:56-0400 Respiratory rate 16 /min Soila Older TRANSMISSIONS SYSTEMS OPERATOR.LEGAL EXECUTIVE ASSISTANT Work Phone: [facility] 07-18-2022 09:56-0400 Systolic blood pressure 128 mm[Hg] Soila Older TRANSMISSIONS SYSTEMS OPERATOR.LEGAL EXECUTIVE ASSISTANT Work Phone: [facility] 05-27-2022 09:13-0400 Body height 160 cm Claudia Odonnell MD Work Phone: [facility] 05-27-2022 09:13-0400 Body weight 59.06 kg Claudia Odonnell MD Work Phone: [facility] 05-27-2022 09:13-0400 Diastolic blood pressure 72 mm[Hg] Claudia Odonnell MD Work Phone: [facility] 05-27-2022 09:13-0400 Heart rate 81 /min Claudia Odonnell MD Work Phone: [facility] 05-27-2022 09:13-0400 Systolic blood pressure 116 mm[Hg] Claudia Odonnell MD Work Phone: [facility] 04-17-2022 08:57-0400 Body weight 58.51 kg Soila Older TRANSMISSIONS SYSTEMS OPERATOR.LEGAL EXECUTIVE ASSISTANT Work Phone: [facility] 04-17-2022 08:57-0400 Diastolic blood pressure 72 mm[Hg] Soila Older TRANSMISSIONS SYSTEMS OPERATOR.LEGAL EXECUTIVE ASSISTANT Work Phone: [facility] 04-17-2022 08:57-0400 Heart rate 92 /min Soila Older TRANSMISSIONS SYSTEMS OPERATOR.LEGAL EXECUTIVE ASSISTANT Work Phone: [facility] 04-17-2022 08:57-0400 Respiratory rate 16 /min Soila Older TRANSMISSIONS SYSTEMS OPERATOR.LEGAL EXECUTIVE ASSISTANT Work Phone: [facility] 04-17-2022 08:57-0400 Systolic blood pressure 128 mm[Hg] Soila Older TRANSMISSIONS SYSTEMS OPERATOR.LEGAL EXECUTIVE ASSISTANT Work Phone: [facility] 03-03-2022 14:20-0400 Inhaled oxygen flow rate 2 L/min [facility] Work Phone: 03-03-2022 14:20-0400 SaO2% (BldA) [Mass fraction] 94 % MINI LAB OPERATOR-C Theron Teague MINI LAB OPERATOR Work Phone: [facility] Work Phone: 03-03-2022 14:16-0400 Diastolic blood pressure 84 mm[Hg] MINI LAB OPERATOR-Nichole Teague MINI LAB OPERATOR Work Phone: [facility] Work Phone: 03-03-2022 14:16-0400 Heart rate 91 /min MINI LAB OPERATOR-Nichole Teague MINI LAB OPERATOR Work Phone: [facility] Work Phone: 03-03-2022 14:16-0400 Respiratory rate 16 /min MINI LAB OPERATOR-Nichole Teague MINI LAB OPERATOR Work Phone: [facility] Work Phone: 03-03-2022 14:16-0400 Systolic blood pressure 108 mm[Hg] MINI LAB OPERATOR-Nichole Teague MINI LAB OPERATOR Work Phone: [facility] Work Phone: 03-03-2022 11:36-0400 Body height 160.02 cm MINI LAB OPERATOR-Nichole Teague MINI LAB OPERATOR Work Phone: [facility] Work Phone: 03-03-2022 11:36-0400 Body mass index (BMI) [Ratio] 23.9 kg/m2 MINI LAB OPERATOR-C Theron Teague MINI LAB OPERATOR Work Phone: [facility] Work Phone: 03-03-2022 11:36-0400 Body temperature 97.8 [degF] MINI LAB OPERATOR-C Theron Teague MINI LAB OPERATOR Work Phone: [facility] Work Phone: 03-03-2022 11:36-0400 Body weight 61.23 kg MINI LAB OPERATOR-C Theron Teague MINI LAB OPERATOR Work Phone: [facility] Work Phone: 01-16-2022 09:30-0400 Body mass index (BMI) [Ratio] 22.8 kg/m2 MINI LAB OPERATOR-C Theron Teague MINI LAB OPERATOR Work Phone: [facility] Work Phone: 01-16-2022 09:30-0400 Body temperature 98.9 [degF] MINI LAB OPERATOR-Nichole Teague MINI LAB OPERATOR Work Phone: [facility] Work Phone: 01-16-2022 09:30-0400 Body weight 58.51 kg MINI LAB OPERATOR-Nichole Teague MINI LAB OPERATOR Work Phone: [facility] Work Phone: 01-16-2022 09:30-0400 Diastolic blood pressure 82 mm[Hg] MINI LAB OPERATOR-Nichole Teague MINI LAB OPERATOR Work Phone: [facility] Work Phone: 01-16-2022 09:30-0400 Heart rate 108 /min MINI LAB OPERATOR-Nichole Teague MINI LAB OPERATOR Work Phone: [facility] Work Phone: 01-16-2022 09:30-0400 Respiratory rate 19 /min MINI LAB OPERATOR-C Theron Teague MINI LAB OPERATOR Work Phone: [facility] Work Phone: 01-16-2022 09:30-0400 SaO2% (BldA) [Mass fraction] 96 % MINI LAB OPERATOR-C Theron Teague MINI LAB OPERATOR Work Phone: [facility] Work Phone: 01-16-2022 09:30-0400 Systolic blood pressure 104 mm[Hg] MINI LAB OPERATOR-C Theron Teague MINI LAB OPERATOR Work Phone: [facility] Work Phone: Encounters Encounter Date Encounter Type Care Provider Facility Start: 07-10-2025 End: 07-10-2025 Emergency department patient visit Joanne Bentoner Facility:[facility] Start: 07-06-2025 End: 07-07-2025 Dr. Misbah Elkins MD Work Phone: -Emergency Department Work Phone: Start: 07-06-2025 End: 07-07-2025 Emergency department patient visit [facility] Facility:[facility] Start: 07-06-2025 ambulatory [facility] Facility:[facility] Start: 07-06-2025 Marshal Segura DO -[facility] Start: 07-06-2025 End: 07-06-2025 Marshal Segura DO -Endoscopy Work Phone: Start: 07-06-2025 End: 07-06-2025 ambulatory [facility] Facility:[facility] Start: 06-12-2025 End: 06-14-2025 Refill Soila Easton APRN.LEGAL EXECUTIVE ASSISTANT Work Phone: [facility] [place] Comment on above: Refill Request Start: 05-31-2025 End: 05-31-2025 Office outpatient visit 15 minutes Soila Easton APRNaMxLEGAL EXECUTIVE ASSISTANT Work Phone: [facility] [place] Comment on above: Chronic pancreatitis , unspecified pancreatitis type (HCC) (Primary Dx); Generalized abdominal pain; Chronic obstructive pulmonary disease with acute lower respiratory infection (HCC); Dependence on supplemental oxygen; Hearing loss of right ear, unspecified hearing loss type Start: 05-31-2025 End: 05-31-2025 ambulatory [facility] Facility:[facility] Start: 05-24-2025 End: 05-24-2025 Dr. Misbah Elkins MD Work Phone: -Emergency Department Work Phone: Start: 05-24-2025 End: 05-24-2025 Emergency department patient visit Dr. Misbah Elkins MD Work Phone: -Emergency Department Start: 05-24-2025 End: 05-24-2025 ambulatory Anat Gutiérrez MINI LAB OPERATOR-C Work Phone: -Laboratory Specimen Start: 05-24-2025 End: 05-24-2025 Dr. Sudhir Grijalva MD -Laboratory Specimen Work Phone: Start: 05-24-2025 End: 05-24-2025 Ani Eduardo MINI LAB OPERATOR-C -[facility] Work Phone: Start: 05-24-2025 End: 05-24-[address] Misbah Elkins MD Work Phone: -[facility] Start: 05-24-2025 End: 05-24-2025 ambulatory [facility] Facility:[facility] Start: 05-19-2025 End: 05-20-2025 Follow-up encounter Misbah Elkins MD Work Phone: [facility] [place] Start: 05-18-2025 End: 05-18-2025 ambulatory [facility] Facility:[facility] Start: 05-17-2025 End: 05-19-2025 Refill Misbah Elkins MD Work Phone: [facility] [place] Comment on above: Refill Request Start: 05-16-2025 End: 05-17-2025 Refill Misbah Elkins MD Work Phone: [facility] [place] Comment on above: Refill Request Start: 05-10-2025 End: 05-10-2025 Dr. Misbah Elkins MD Work Phone: -Emergency Department Work Phone: Start: 05-10-2025 End: 05-10-2025 Emergency department patient visit Dr. Misbah Elkins MD Work Phone: -Emergency Department Start: 05-09-2025 End: 05-12-2025 ambulatory Misbah Elkins MD Work Phone: Internal Medicine [facility] Start: 04-27-2025 End: 04-27-[address] Misbah Elkins MD Work Phone: -Laboratory Specimen Start: 04-27-2025 End: 04-27-2025 Gabby SILVA -Laboratory Specimen Work Phone: Start: 04-26-2025 End: 04-26-2025 Gabby SILVA -[facility] Work Phone: Start: 04-26-2025 End: 04-27-[address] Misbah Elkins MD Work Phone: -[facility] Start: 04-25-2025 End: 04-25-2025 Office outpatient visit 25 minutes Misbah Elkins MD Work Phone: [facility] [place] Comment on above: Subclavian arterial stenosis (Primary Dx); Stenosis of left carotid artery; Acute pancreatitis without infection or necrosis, unspecified pancreatitis type (HCC); Hypertensive crisis; Chronic obstructive pulmonary disease with acute lower respiratory infection (HCC); Respiratory failure with hypoxia, unspecified chronicity (HCC) Start: 04-25-2025 End: 04-26-2025 ambulatory MISBAH ELKINS Facility:[facility] Start: 04-25-2025 End: 04-26-2025 Telephone encounter Misbah Elkins MD Work Phone: [facility] [place] Comment on above: Pain medication Start: 04-20-2025 End: 04-22-2025 Telephone encounter Misbah Elkins MD Work Phone: [facility] [place] Comment on above: Patient Update Start: 04-19-2025 Dr. Sudhir Izquierdo MD -[facility] Work Phone: Start: 04-18-2025 Dr. Sudhir Izquierdo MD -[facility] Work Phone: Start: 04-17-2025 Dr. Bert Greenwood MD -[facility] Work Phone: Start: 04-16-2025 ambulatory Sudhir Izquierdo Fac ility:[facility] Start: 04-16-2025 End: 04-19-2025 Evaluation and management of inpatient Dr. Misbah Elkins MD Work Phone: -[facility] 3 Start: 04-16-2025 End: 04-19-2025 Dr. Jackson Monk DO -[facility] 3 Work Phone: Start: 04-11-2025 End: 05-12-2025 ambulatory Misbah Elkins MD Work Phone: [facility] [place] Start: 04-11-2025 End: 04-11-2025 Telephone encounter Misbah Elkins MD Work Phone: NOC Comment on above: Transition Of Care Start: 04-10-2025 End: 04-10-2025 Telephone encounter Misbah Elknis MD Work Phone: NOC Comment on above: Transition Of Care Start: 04-10-2025 End: 04-10-2025 Office outpatient visit 25 minutes Nicolas Greer APRN.COMMERCIAL ANNOUNCER Work Phone: [facility] [place] Comment on above: Hospital discharge f ollow-up (Primary Dx); Acute respiratory failure with hypoxia (HCC); Chronic recurrent pancreatitis (HCC); Norovirus; Pneumonia of both lungs due to infectious organism, unspecified part of lung; Presence of pancreatic duct stent; Alcoholic hepatitis without ascites (HCC); Alcohol use disorder, moderate, dependence (HCC) Start: 04-10-2025 End: 04-10-2025 ambulatory MISBAH ELKINS Facility:[facility] Start: 04-10-2025 End: 04-10-2025 Ani Eduardo MINI LAB OPERATOR-C -[facility] Work Phone: Start: 04-10-2025 End: 04-10-[address] Misbah Elkins MD Work Phone: -[facility] Start: 04-07-2025 End: 04-07-2025 Telephone encounter Floresita Villaseñor APRN.LEGAL EXECUTIVE ASSISTANT Work Phone: Gastroenterology Comment on above: Opened In Error Start: 04-04-2025 End: 04-07-2025 Telephone encounter Misbah Elkins MD Work Phone: NOC Comment on above: Transition Of Care Chronic recurrent pa ncreatitis (HCC) (Primary Dx) Transition Of Care ( Left V/m ) Appointment Start: 03-29-2025 End: 03-29-2025 Telephone encounter Juan Senior APRN.LEGAL EXECUTIVE ASSISTANT Work Phone: [facility] Comment on above: Patient Question Start: 03-28-2025 End: 03-28-2025 Telephone encounter Herman Nevarez RN NOC Comment on above: Transition Of Care ( RC f/u discharge LVM /) Start: 03-21-2025 End: 03-22-2025 Refill Misbah Elkins MD Work Phone: [facility] [place] Comment on above: Refill Request Start: 03-20-2025 End: 03-20-2025 Evaluation and management of inpatient NGUYEN PALACIOS Facility:[id number] Start: 03-16-2025 End: 03-16-2025 Telephone encounter Misbah Elkins MD Work Phone: [facility] [place] Comment on above: Patient Update Start: 03-16-2025 Dr. Sudhir Izquierdo MD -[facility] [facility] Work Phone: Start: 03-15-2025 End: 03-23-2025 Evaluation and management of inpatient [facility] Facility:[id number] Start: 03-15-2025 Dr. Sudhir Izquierdo MD -[facility] [facility] Work Phone: Start: 03-15-2025 End: 03-16-2025 ambulatory Maksim Anderson APRN.LEGAL EXECUTIVE ASSISTANT Work Phone: Critical Care Start: 03-15-2025 Dr. Gonzalo Sebastian DO -[facility] Start: 03-14-2025 Dr. Sudhir Izquierdo MD -[place] [facility] Work Phone: Start: 03-13-2025 End: 03-15-2025 Evaluation and management of inpatient Dr. Misbah Elkins MD Work Phone: [facility] Work Phone: Start: 03-13-2025 ambulatory Sudhir Izquierdo Fac ility:[facility] Start: 03-13-2025 End: 03-15-2025 Dr. Pako Fernández MD -[facility] Work Phone: Start: 03-13-2025 End: 03-13-2025 Telephone encounter Jane Farrell MD Work Phone: Gastroenterology Comment on above: Patient Update (Symp toms after ERCP ) Start: 03-10-2025 ambulatory VANESSA Mustafa y:[facility] Start: 03-10-2025 End: 03-10-2025 Subsequent hospital visit by physician Jane Farrell MD Work Phone: Gastroenterology Comment on above: Other chronic pancre atitis (HCC) [K86.1] Start: 03-07-2025 End: 03-07-2025 Telephone encounter Juan Senior APRN.CNP Work Phone: Gastroenterology Comment on above: Orders Start: 03-06-2025 End: 03-06-2025 Telephone encounter Raisa Jimenez channel marketing program manager Comment on above: Patient Question Patient Question (Qu estions Prior to ERCP) Start: 03-03-2025 End: 03-03-2025 ambulatory Jaelyn Kothari RN Gastroenterology Start: 02-26-2025 End: 02-26-2025 Emergency department patient visit Dr. Misbah Elkins MD Work Phone: [facility] Work Phone: Start: 02-26-2025 End: 02-26-2025 Dr. Misbah Elkins MD Work Phone: -Emergency Department Work Phone: Start: 02-10-2025 End: 02-13-2025 Telephone encounter Juan Senior APRN.LEGAL EXECUTIVE ASSISTANT Work Phone: Gastroenterology Comment on above: Medical Clearance Start: 02-08-2025 End: 02-08-2025 Ani ROGERSC -[facility] Work Phone: Start: 02-08-2025 End: 02-08-[address] Misbah Elkins MD Work Phone: [facility] Work Phone: Start: 02-03-2025 End: 03-06-2025 Refill Juan Senior APRN.LEGAL EXECUTIVE ASSISTANT Work Phone: Gastroenterology Comment on above: Refill Request Start: 01-27-2025 End: 01-27-2025 Dr. Franco Inman MD -Emergency [facility] Work Phone: Start: 01-27-2025 End: 01-27-2025 Emergency department patient visit [facility] Facility:[facility] Start: 01-24-2025 End: 01-24-2025 Refill Misbah Elkins MD Work Phone: [facility] [place] Comment on above: Refill Request Start: 01-18-2025 ambulatory Ani Eduardo NP Fac ility:[facility] Start: 01-13-2025 End: 01-13-2025 Patient encounter procedure Soila Easton APRN.LEGAL EXECUTIVE ASSISTANT Work Phone: [facility] [place] Comment on above: Gout, unspecified ca use, unspecified chronicity, unspecified site (Primary Dx); Calculus of pancreatic duct (HCC); Chronic recurrent pancreatitis (HCC); Chronic obstructive pulmonary disease, unspecified COPD type (HCC); Pulmonary emphysema, unspecified emphysema type (HCC); Tobacco use disorder Start: 01-13-2025 End: 01-13-2025 ambulatory [facility] Facility:[facility] Start: 01-09-2025 End: 01-12-2025 Telephone encounter Raisa Jimenez RNchannel marketing program manager Comment on above: Patient Update (Pain ) Order for Pull Ups Start: 01-06-2025 End: 01-09-2025 Telephone encounter Juan Senior APRN.LEGAL EXECUTIVE ASSISTANT Work Phone: [facility] Comment on above: Patient Question Start: 01-05-2025 End: 01-11-2025 Telephone encounter Juan Senior APRN.LEGAL EXECUTIVE ASSISTANT Work Phone: Gastroenterology Comment on above: Patient Request Start: 01-03-2025 End: 01-03-2025 Refill Misbah Elkins MD Work Phone: [facility] Comment on above: Refill Request Start: 01-01-2025 End: 01-01-2025 Dr. Misbah Elkins MD Work Phone: -Emergency Department Work Phone: Start: 01-01-2025 End: 01-01-2025 Emergency department patient visit Dr. Misbah Elkins MD Work Phone: [facility] Work Phone: Start: 12-31-2024 End: 01-18-2025 ambulatory Marge Handy RN Work Phone: NURSE FIELD SERVICES MANAGER Comment on above: Medication Question Refill Request Start: 12-27-2024 End: 12-28-2024 Telephone encounter Juan Senior APRN.LEGAL EXECUTIVE ASSISTANT Work Phone: [facility] Comment on above: Patient Update Start: 12-24-2024 End: 12-24-2024 Dr. Misbah Elkins MD Work Phone: -Emergency Department Work Phone: Start: 12-24-2024 End: 12-24-2024 Emergency department patient visit Dr. Misbah Elkins MD Work Phone: [facility] Work Phone: Start: 12-23-2024 End: 12-23-2024 Telephone encounter Raisa Jimenez RNchannel marketing program manager Comment on above: Reminder Call (Misse d call) Start: 12-23-2024 End: 12-23-2024 Ani Eduardo MINI LAB OPERATOR-C -[facility] Work Phone: Start: 12-23-2024 End: 12-23-2024 ambulatory [facility] Start: 12-21-2024 End: 02-20-2025 Follow-up encounter Tara Youngblood APRN.CNP Work Phone: [facility] Start: 12-20-2024 End: 12-20-2024 ambulatory Carroll Leblanc RN Gastroenterology Start: 12-19-2024 End: 12-19-2024 Subsequent hospital visit by physician [facility] [place] Work Phone: Radiology Comment on above: Chronic recurrent pa ncreatitis (HCC) [K86.1] Start: 12-19-2024 End: 12-19-2024 ambulatory [facility] Facility:[facility] Start: 12-19-2024 End: 12-19-2024 Patient encounter procedure Tara Youngblood APRN.LEGAL EXECUTIVE ASSISTANT Work Phone: [facility] Comment on above: Hospital discharge f ollow-up (Primary Dx); Chronic recurrent pancreatitis (HCC); Chronic obstructive pulmonary disease, unspecified COPD type (HCC); Dysphagia, unspecified type; Essential hypertension, benign; Tobacco use disorder; Smoker Start: 12-19-2024 End: 12-22-2024 Telephone encounter Misbah Elkins MD Work Phone: [facility] [place] Comment on above: Results Start: 12-16-2024 End: 12-16-2024 Gabby SILVA -[facility] Work Phone: Start: 12-16-2024 End: 12-16-2024 ambulatory [facility] Start: 12-12-2024 Non-patient / Non-visit Dr. Emily Bonilla MD -[facility] Work Phone: Start: 12-12-2024 Dr. Anastacia camargo MD -[place] [place] [facility] Work Phone: Start: 12-12-2024 [facility] Start: 12-12-2024 Marshal Friend DO -[facility] Start: 12-11-2024 Non-patient / Non-visit Dr. Emily Bonilla MD [facility] Work Phone: Start: 12-11-2024 Dr. Anastacia camargo [facility] Work Phone: Start: 12-10-2024 Non-patient / Non-visit Dr. Emily Bonilla [facility] Work Phone: Start: 12-10-2024 Dr. Anastacia camargo [facility] Work Phone: Start: 12-09-2024 Non-patient / Non-visit Dr. Emily Bonilla [facility] Work Phone: Start: 12-09-2024 Dr. Anastacia camargo [facility] Work Phone: Start: 12-09-2024 Non-patient / Non-visit Dr. Gonzalo Lopez own DO -[facility] Start: 12-09-2024 Dr. Gonzalo Sebastian DO -[facility] Start: 12-08-2024 Non-patient / Non-visit Dr. Cherelle Kahn [facility] Work Phone: Start: 12-08-2024 Dr. Yrn vilchis [facility] Work Phone: Start: 12-08-2024 Non-patient / Non-visit Dr. Gonzalo Lopez own DO -[facility] Start: 12-08-2024 Dr. Gonzalo Sebastian DO -[facility] Start: 12-07-2024 Non-patient / Non-visit Dr. Cherelle Kahn [facility] Work Phone: Start: 12-07-2024 Dr. Yrn vilchis [facility] Work Phone: Start: 12-07-2024 Non-patient / Non-visit Dr. Gonzalo Lopez own DO -[facility] Start: 12-07-2024 Dr. Gonzalo Sebastian DO [facility] Start: 12-06-2024 Non-patient / Non-visit Dr. Cherelle Kahn [facility] Work Phone: Start: 12-06-2024 Dr. Yrn vilchis [facility] Work Phone: Start: 12-06-2024 Non-patient / Non-visit Dr. Gonzalo samuel DO [facility] Start: 12-06-2024 Dr. Gonzalo Sebastian [facility] Start: 12-05-2024 Non-patient / Non-visit Dr. Cherelle Kahn [facility] Work Phone: Start: 12-05-2024 Dr. Yrn vilchis [facility] Work Phone: Start: 12-05-2024 ambulatory [facility] Facility:[facility] Start: 12-05-2024 End: 12-05-2024 Telephone encounter Juan Senior APRN.CNP Work Phone: Gastroenterology Start: 12-05-2024 Non-patient / Non-visit Dr. Emily Gaxiola MD -[facility] Start: 12-05-2024 Dr. Bridgette Gaxiola MD [facility] Start: 12-04-2024 Non-patient / Non-visit Dr. Aleta Aguayo [facility] Work Phone: Start: 12-04-2024 ambulatory Aleta Aguayo Facility:[facility] Start: 12-04-2024 End: 12-12-2024 Evaluation and management of inpatient Dr. Aleta Aguayo DO -[facility] Work Phone: Start: 12-04-2024 End: 12-12-2024 Dr. Anastacia Bonilla MD -Progressive Care Unit Work Phone: Start: 12-01-2024 End: 12-01-2024 Telephone encounter Jane Farrell MD Work Phone: Gastroenterology Comment on above: Endoscopy Call Start: 12-01-2024 End: 12-01-2024 ambulatory EDUARD GALEANO Facility:[facility] Start: 12-01-2024 End: 12-01-2024 Subsequent hospital visit by physician Jane Farrell MD Work Phone: Gastroenterology Comment on above: Chronic recurrent pa ncreatitis (HCC) [K86.1] Start: 11-29-2024 End: 12-02-2024 ambulatory Misbah Elkins MD Work Phone: Internal Medicine [facility] Start: 11-25-2024 End: 11-25-2024 Telephone encounter Raisa Jimenez RNchannel marketing program manager Comment on above: Medication Problem ( Medication for EGD) Start: 11-24-2024 End: 11-24-2024 Patient encounter procedure Ani Eduardo MINI LAB OPERATOR-C -Pulmonary Services/Neurology Work Phone: Start: 11-24-2024 End: 11-24-2024 Ani Eduardo MINI LAB OPERATOR-C -Pulmonary Services/Neurology Work Phone: Start: 11-24-2024 End: 11-24-2024 ambulatory Carroll Leblanc RN Gastroenterology Start: 11-24-2024 End: 11-24-2024 ambulatory Ani Eduardo MINI LAB OPERATOR Facility:[facility] Start: 11-21-2024 End: 11-21-2024 Refill Misbah Elkins MD Work Phone: [facility] [place] Comment on above: Refill Request Start: 11-08-2024 End: 11-09-2024 Follow-up encounter Misbah Elkins MD Work Phone: [facility] [place] Start: 11-08-2024 End: 11-09-2024 Telephone encounter Misbah Elkins MD Work Phone: Internal Medicine [place] Comment on above: Medication Problem Start: 11-07-2024 End: 11-07-2024 Subsequent hospital visit by physician [facility] Work Phone: Radiology Comment on above: COPD with exacerbati on (HCC) [J44.1] Start: 11-07-2024 End: 11-07-2024 [facility] Facility:[facility] Start: 11-07-2024 End: 11-07-2024 Office outpatient visit 25 minutes Misbah Elkins MD Work Phone: Internal [facility] [place] Comment on above: Cough with sputum (P rimary Dx); Essential hypertension; COPD with exacerbation (HCC) Start: 11-02-2024 End: 11-02-2024 Office outpatient new 30 minutes Juan Senior APRN.LEGAL EXECUTIVE ASSISTANT Work Phone: Gastroenterology Comment on above: Alcohol-induced outbound sales specialist luis pancreatitis (HCC) (Primary Dx); Chronic recurrent pancreatitis (HCC); Chronic RUQ pain; Abdominal bloating; Nausea; Gastroesophageal reflux disease without esophagitis Start: 11-02-2024 End: 11-02-2024 ambulatory [facility] Facility:[facility] Start: 10-28-2024 End: 10-28-2024 Refill Misbah Elkins MD Work Phone: [facility] [place] Comment on above: Refill Request Start: 08-23-2024 End: 08-23-2024 [facility] Facility:[facility] Start: 08-23-2024 End: 08-23-2024 Subsequent hospital visit by physician [facility] Work Phone: Cat Scan Comment on above: Alcoholic hepatitis without ascites [K70.10] Start: 08-19-2024 End: 08-19-2024 Telephone encounter Misbah Elkins MD Work Phone: Internal [facility] [place] Comment on above: medication issue Start: 08-16-2024 End: 08-17-2024 Refill Misbah Elkins MD Work Phone: [facility] [place] Comment on above: Refill Request Start: 08-15-2024 End: 08-15-2024 [facility] Facility:[facility] Start: 08-15-2024 End: 08-15-2024 Patient encounter procedure Soila Easton APRN.LEGAL EXECUTIVE ASSISTANT Work Phone: Internal [facility] [place] Comment on above: Chronic obstructive pulmonary disease, unspecified COPD type (HCC) (Primary Dx); Generalized abdominal tenderness without rebound tenderness; Upper abdominal pain; Elevated lipase; Nausea; Alcoholic hepatitis without ascites; Alcohol use disorder, moderate, dependence (HCC); Acute pancreatitis, unspecified complication status, unspecified pancreatitis type Start: 08-12-2024 End: 08-12-2024 [facility] Facility:[facility] Start: 08-11-2024 End: 08-11-2024 Telephone encounter Misbah Elkins MD Work Phone: Internal [facility] [place] Comment on above: Results Start: 08-10-2024 End: 08-10-2024 Subsequent hospital visit by physician [facility] [place] Work Phone: Radiology Comment on above: Shortness [...] emphysema type (HCC) Start: 08-10-2024 End: 08-10-2024 [facility] Facility:[facility] Start: 08-10-2024 End: 08-10-2024 Telephone encounter Misbah Elkins MD Work Phone: Internal [facility] [place] Comment on above: Results; Urinary Pro blem Start: 08-05-2024 End: 08-05-2024 [facility] Facility:[facility] Start: 08-05-2024 End: 08-05-2024 Office outpatient visit 25 minutes Misbah Elkins MD Work Phone: [facility] [place] Comment on above: Anxiety (Primary Dx) ; Alcohol-induced chronic pancreatitis (HCC); Nausea; Encounter for immunization; Insomnia, unspecified type; Leukocytosis, unspecified type Start: 08-05-2024 End: 08-05-2024 [facility] Facility:[facility] Start: 07-08-2024 End: 07-08-2024 Refill Misbah Elkins MD Work Phone: [facility] [place] Comment on above: Refill Request Start: 06-21-2024 End: 06-21-2024 Telephone encounter Misbah Elkins MD Work Phone: [facility] [place] Comment on above: No Show Start: 06-15-2024 End: 06-16-2024 Refill Misbah Elkins MD Work Phone: [facility] [place] Comment on above: Refill Request Start: 05-18-2024 End: 05-18-2024 Office outpatient visit 25 minutes Misbah Elkins MD Work Phone: [facility] [place] Comment on above: Anxiety (Primary Dx) ; Alcohol-induced chronic pancreatitis (HCC); Chronic obstructive pulmonary disease, unspecified COPD type (HCC); Essential hypertension Start: 05-13-2024 End: 05-16-2024 Refill Misbah Elkins MD Work Phone: Internal [facility] [place] Comment on above: Refill Request Start: 05-04-2024 ambulatory Misbah Nixon Work Phone: Internal [facility] [place] Start: 04-15-2024 Refill Misbah Nixon Work Phone: [facility] [place] Comment on above: Refill Request Start: 03-23-2024 Refill Misbah Cisneros D Work Phone: Internal [facility] [place] Comment on above: Refill Request; Open ed In Error Start: 03-18-2024 Refill Misbah Nixon Work Phone: Internal [facility] [place] Comment on above: Refill Request Start: 03-14-2024 Refill Misbah Nixon Work Phone: [facility] [place] Comment on above: Refill Request Start: 02-26-2024 Refill Misbah Nixon Work Phone: Internal [facility] [place] Comment on above: Refill Request Start: 02-19-2024 Refill Misbah Nixon Work Phone: Internal [facility] [place] Comment on above: Refill Request Start: 02-04-2024 Telephone encounter Misbah michelle MD Work Phone: Internal [facility] [place] Comment on above: Patient Update Start: 01-27-2024 Telephone encounter Tara nayak TRANSMISSIONS SYSTEMS OPERATOR.LEGAL EXECUTIVE ASSISTANT Work Phone: [facility] [place] Comment on above: Results Start: 01-25-2024 End: 01-25-2024 Subsequent hospital visit by physician [facility] [place] Work Phone: Radiology Comment on above: Pneumonia due to inf ectious organism, unspecified laterality, unspecified part of lung [J18.9] Start: 01-25-2024 End: 01-25-2024 Patient encounter procedure Tara Youngblood TRANSMISSIONS SYSTEMS OPERATOR.LEGAL EXECUTIVE ASSISTANT Work Phone: Family [facility] [place] Comment on above: Pneumonia due to inf ectious organism, unspecified laterality, unspecified part of lung (Primary Dx); Acute right ankle pain Start: 01-22-2024 Refill Misbah Nixon Work Phone: Internal Medicine [place] Comment on above: Refill Request Start: 01-19-2024 End: 01-20-2024 Emergency department patient visit Dr. Víctor Huerta Work Phone: [facility]gency Department Work Phone: Start: 01-18-2024 Refill Misbah Nixon Work Phone: Internal Medicine [place] Comment on above: Refill Request Start: 01-12-2024 Telephone encounter Anat ventura TRANSMISSIONS SYSTEMS OPERATOR.LEGAL EXECUTIVE ASSISTANT Work Phone: Internal [facility] [place] Comment on above: Medication Question Start: 01-12-2024 End: 01-12-2024 Patient encounter procedure Anat Gutiérrez TRANSMISSIONS SYSTEMS OPERATOR.LEGAL EXECUTIVE ASSISTANT Work Phone: Internal [facility] [place] Comment on above: Essential hypertensi on, benign (Primary Dx); Hyponatremia; Leukocytosis, unspecified type; COPD with exacerbation (HCC); Pneumonia due to infectious organism, unspecified laterality, unspecified part of lung Start: 01-06-2024 ambulatory Misbah Nixon Work Phone: [facility] Start: 01-06-2024 Telephone encounter Misbah michelle MD Work Phone: Internal Medicine [place] Comment on above: Vaginal Problem Transition Of Care Start: 01-05-2024 Non-patient / Non-visit Dr. Cary Work Phone: [facility] Work Phone: Start: 01-04-2024 Non-patient / Non-visit Dr. Cary Work Phone: [facility] Work Phone: Start: 01-03-2024 Non-patient / Non-visit Dr. Cary Work Phone: [facility] Work Phone: Start: 01-02-2024 End: 01-05-2024 [facility]: Start: 12-16-2023 End: 12-16-2023 Patient encounter procedure Candie Talley PA-C Work Phone: Internal [facility] [place] Comment on above: Tachycardia (Primary Dx); Alcohol-induced chronic pancreatitis (HCC); Hyperlipidemia, unspecified hyperlipidemia type; Insomnia, unspecified type; Vitamin D deficiency; Chronic obstructive pulmonary disease, unspecified COPD type (HCC); Prediabetes Start: 11-02-2023 Refill Pako Palumbo Work Phone: Hematology/Oncology Comment on above: Refill Request Start: 07-09-2023 Telephone encounter Candie Lee PA-C Work Phone: Internal [facility] [place] Comment on above: Patient Question Start: 07-08-2023 End: 07-08-2023 Emergency department patient visit MINI LAB OPERATOR-Nichole EASTON Work Phone: [facility] Work Phone: Start: 06-30-2023 End: 06-30-2023 Patient encounter procedure MINI LAB OPERATORMiriam EASTON Work Phone: [facility] [place] Work Phone: Start: 06-12-2023 Refill Misbah Nixon Work Phone: Internal [facility] [place] Comment on above: Refill Request Start: 06-10-2023 Refill Soila Easton APRN, .CNP Work Phone: Internal [facility] [place] Comment on above: Refill Request Start: 06-03-2023 ambulatory Misbah Nixon Work Phone: Internal [facility] Start: 06-02-2023 End: 06-02-2023 Emergency department patient visit [facility] Work Phone: Start: 06-02-2023 End: 06-02-2023 Patient encounter procedure [facility]Cat Scan, [facility] Work Phone: Start: 05-18-2023 Refill Misbah Nixon Work Phone: Internal [facility] Comment on above: Refill Request Start: 05-05-2023 ambulatory Yrn Ortega Facility:[id number] Start: 04-15-2023 End: 04-15-2023 Patient encounter procedure Candie Talley PA-C Work Phone: Internal [facility] Comment on above: Arthralgia of right temporomandibular joint (Primary Dx); Insomnia, unspecified type; Nausea; Alcohol use disorder, moderate, dependence (HCC) Start: 03-24-2023 Refill Misbah Nixon Work Phone: Internal [facility] Comment on above: Refill Request Start: 03-10-2023 ambulatory Misbah Nixon Work Phone: Internal [facility] Start: 03-09-2023 ambulatory Yrn Ortega Facility:[id number] Start: 01-28-2023 ambulatory Yrn Ortega Facility:[id number] Start: 12-31-2022 Telephone encounter Misbah michelle MD Work Phone: [facility] [place] Comment on above: Medication Request Start: 12-22-2022 Patient encounter procedure Soila Easton Work Phone: [id number] Work Phone: Start: 12-22-2022 ambulatory Yrn Ortega Facility:[id number] Start: 12-03-2022 ambulatory Yrn Ortega Facility:[id number] Start: 11-28-2022 End: 11-28-2022 Patient encounter procedure Soila Rustam QUIROZ Work Phone: Internal [facility] [place] Comment on above: Prediabetes (Primary Dx) Start: [...] 11-25-2022 Subsequent hospital visit by physician [facility] [place] Work Phone: Radiology Comment on above: Numbness and tinglin g of both lower extremities [R20.0, R20.2] Start: 11-25-2022 End: 11-25-2022 Patient encounter procedure Misbah Elkins MD Work Phone: [facility] [place] Comment on above: Numbness and tinglin g of both lower extremities (Primary Dx); CHUY (acute kidney injury) (HCC); Essential hypertension, benign; Hyperlipidemia, unspecified hyperlipidemia type Start: 11-12-2022 Telephone encounter Misbah michelle MD Work Phone: [facility] [place] Comment on above: Results Start: 11-11-2022 End: 11-11-2022 Subsequent hospital visit by physician [facility] [place] Work Phone: Radiology Comment on above: Chronic obstructive pulmonary disease, unspecified COPD type (HCC) [J44.9] Start: 11-11-2022 End: 11-11-2022 Patient encounter procedure Misbah Elkins MD Work Phone: [facility] [place] Comment on above: CHUY (acute kidney in jury) (HCC) (Primary Dx); Chronic obstructive pulmonary disease, unspecified COPD type (HCC); Alcohol use disorder, moderate, dependence (HCC); Essential hypertension, benign; Hyperlipidemia, unspecified hyperlipidemia type; Tobacco use disorder; Reactive depression; Moderate episode of recurrent major depressive disorder (HCC); Alcohol-induced chronic pancreatitis (HCC) Start: 11-07-2022 Non-patient / Non-visit MINI LAB OPERATOR-C J OY OLDER Work Phone: [facility] Start: 11-06-2022 Non-patient / Non-visit MINI LAB OPERATOR-C J OY OLDER Work Phone: [facility] Start: 11-06-2022 Non-patient / Non-visit MINI LAB OPERATOR-C J OY OLDER Work Phone: [facility] Start: 11-05-2022 Non-patient / Non-visit MINI LAB OPERATOR-C J OY OLDER Work Phone: [facility] Start: 11-05-2022 Non-patient / Non-visit MINI LAB OPERATOR-C J OY OLDER Work Phone: [facility] Start: 11-05-2022 Non-patient / Non-visit MINI LAB OPERATOR-C J OY OLDER Work Phone: [facility] Start: 11-04-2022 Non-patient / Non-visit MINI LAB OPERATOR-C J OY OLDER Work Phone: [facility] Start: 11-04-2022 Non-patient / Non-visit MINI LAB OPERATOR-C J OY OLDER Work Phone: [facility] Start: 11-03-2022 Non-patient / Non-visit MINI LAB OPERATOR-C J OY OLDER Work Phone: [facility] Start: 11-03-2022 Non-patient / Non-visit MINI LAB OPERATOR-C J KAILYN OLDER Work Phone: [facility] Start: 11-02-2022 End: 11-02-2022 Non-patient / Non-visit MINI LAB OPERATOR-C SOILA EASTON Work Phone: [facility] Start: 11-02-2022 Non-patient / Non-visit MINI LAB OPERATOR-C J OY OLDER Work Phone: [facility] Start: 11-01-2022 Non-patient / Non-visit MINI LAB OPERATOR-C J OY OLDER Work Phone: [facility] Start: 11-01-2022 End: 11-07-2022 Evaluation and management of inpatient MINI LAB OPERATOR-C SOILA EASTON Work Phone: [facility]Pro[facility] Unit Start: 11-01-2022 Chart Update Soila Easton Work Phone: [facility] Work Phone: Start: 10-31-2022 End: 10-31-2022 Patient encounter procedure Misbah Elkins MD Work Phone: Internal [facility] [place] Comment on above: Cellulitis of right orbital region (Primary Dx); CHUY (acute kidney injury) (HCC); Uncontrolled hypertension; Tobacco abuse, in remission; Lung mass Start: 10-24-2022 End: 10-29-2022 Evaluation and management of inpatient Varija Yalamanchali [facility] 2026 Start: 10-23-2022 Telephone encounter Jaime rodriguez MD Work Phone: [facility] Ophthalmology (Eye) Residents Comment on above: Speak to Provider Start: 10-22-2022 End: 10-22-2022 ambulatory UNKNOWN PROVIDER Facility:[facility] Start: 10-21-2022 ambulatory UNKNOWN PROVIDER Facili ty:[facility] Start: 10-21-2022 Evaluation and manag ement of [facility] Start: 10-20-2022 End: 10-24-2022 Evaluation and management of inpatient ROBBY BUSH Facility:[facility] Start: 10-20-2022 Telephone encounter Jeffy price MD Work Phone: [facility] Start: 10-20-2022 End: 10-20-2022 ambulatory UNKNOWN PROVIDER Facility:[facility] Start: 10-20-2022 Emergency department patient visit UNKNOWN PROVIDER Facility:[facility] Start: 10-20-2022 End: 10-20-2022 Office outpatient visit 25 minutes Jeffery Jin MD Work Phone: [facility] Ophthalmology (Eye) Residents Comment on above: Inflammation of orbi kristopher region (Primary Dx) Start: 10-19-2022 End: 10-20-2022 Emergency department patient visit MINI LAB OPERATOR-Nichole EASTON [facility] Start: 09-05-2022 End: 09-05-2022 Patient encounter procedure MINI LAB OPERATORMiriam EASTON [facility] Start: 08-27-2022 End: 08-27-2022 Patient encounter procedure Soila Easton APRN.LEGAL EXECUTIVE ASSISTANT Work Phone: Internal [facility] [place] Comment on above: Chronic obstructive pulmonary disease, unspecified COPD type (HCC) (Primary Dx) Start: 08-22-2022 End: 08-22-2022 Emergency department patient visit MINI LAB OPERATOR-Nichole EASTON [facility] Start: 07-18-2022 End: 07-18-2022 Patient encounter procedure Soila Easton APRNMaxLEGAL EXECUTIVE ASSISTANT Work Phone: Internal Medicine [place] Comment on above: Essential hypertensi on, benign (Primary Dx); Multiple joint pain; Alcohol-induced chronic pancreatitis (HCC); Chronic obstructive pulmonary disease, unspecified COPD type (HCC); Right otitis media, unspecified otitis media type; Need for influenza vaccination Start: 06-25-2022 ambulatory Misbah Nixon Work Phone: [facility] [place] Start: 06-25-2022 Telephone encounter Inge doshi APRN.CNP Work Phone: OB/Gynecology Comment on above: Vaginal Problem Start: 06-13-2022 Refill Misbah Nixon Work Phone: Internal [facility] [place] Comment on above: Refill Request Start: 05-28-2022 End: 05-28-2022 ambulatory [facility] Work Phone: Start: 05-28-2022 End: 05-28-2022 Patient encounter procedure [facility]Cat Scan, [facility] Start: 05-27-2022 End: 05-27-2022 Patient encounter procedure Claudia Odonnell MD Work Phone: Gastroenterology [place] Comment on above: Alcohol-induced outbound sales specialist luis pancreatitis (HCC); Alcoholic hepatitis without ascites Start: 05-22-2022 Refill Misbah Nixon Work Phone: Internal [facility] [place] Comment on above: Refill Request Start: 05-16-2022 Refill Soila Easton APRN .IGOR Work Phone: Internal [facility] [place] Comment on above: Refill Request Start: 05-02-2022 End: 05-02-2022 Subsequent hospital visit by physician [facility] Work Phone: Radiology Comment on above: Alcohol-induced outbound sales specialist luis pancreatitis (HCC) [K86.0] Start: 04-18-2022 Refill Soila Easton TRANSMISSIONS SYSTEMS OPERATOR .IGOR Work Phone: Internal Medicine [place] Comment on above: Refill Request Start: 04-18-2022 Telephone encounter Soila Easton APRN.IGOR Work Phone: [facility] [place] Comment on above: Opened In Error Start: 04-17-2022 Telephone encounter Soila Easton TRANSMISSIONS SYSTEMS OPERATORCHRIS Work Phone: [facility] [place] Comment on above: Medication Question Start: 04-17-2022 End: 04-17-2022 Patient encounter procedure Soila Easton APRN.IGOR Work Phone: Internal [facility] [place] Comment on above: Essential hypertensi on, benign (Primary Dx); Hyperlipidemia, unspecified hyperlipidemia type; Chronic fatigue; Alcoholic hepatitis without ascites; Alcohol-induced chronic pancreatitis (HCC); Iron deficiency; Vitamin D deficiency; MICKEY (generalized anxiety disorder); Reactive depression Start: 03-21-2022 Refill Misbah Nixon Work Phone: Internal [facility] [place] Comment on above: Refill Request Start: 03-21-2022 Refill Soila SantanaLEGAL EXECUTIVE ASSISTANT Work Phone: Internal [facility] Comment on above: Refill Request Start: 03-11-2022 Telephone encounter Inge doshi APRN.LEGAL EXECUTIVE ASSISTANT Work Phone: OB/Gynecology Comment on above: Vaginal Problem Start: 03-03-2022 End: 03-03-2022 Emergency department patient visit MINI LAB OPERATOR-Nichole Teague NP Work Phone: [facility]Emergency Department Start: 02-21-2022 Refill Soila SantanaLEGAL EXECUTIVE ASSISTANT Work Phone: [facility] Comment on above: Refill Request Start: 02-11-2022 ambulatory Misbah Nixon Work Phone: [facility] [place] Start: 01-16-2022 End: 01-16-2022 Patient encounter procedure CARMEN Teague NP [facility] Start: 12-27-2021 Refill Víctor Mcpherson APRN.LEGAL EXECUTIVE ASSISTANT, DNP Work Phone: [facility] Comment on above: Refill Request Start: 06-11-2017 End: 06-12-2017 Ambulatory CHING MARI Facility:[facility] Procedures Date Procedure Procedure Detail Performing Clinician Start: 07-10-2025 Urine microscopy: red cells Dr. Misbah swann MD Work Phone: Start: 07-10-2025 Urnls dip stick/tablet reagent auto microscopy Dr. Misbah Elkins MD Work Phone: Start: 07-10-[address] Tayla Elkins MD Work Phone: Start: 07-10-2025 Mean corpuscular hemoglobin concentration determination Dr. Misbah Elkins MD Work Phone: Start: 07-10-[address] Misbah Elkins MD Work Phone: Start: 07-10-2025 Nucleated red blood cell count procedure Dr. Misbah Elkins MD Work Phone: Start: 07-10-2025 Platelet mean volume determination Dr. Misbah Elkins MD Work Phone: Start: 07-10-[address] Misbah Elkins MD Work Phone: Start: 07-06-2025 Ct abdomen & pelvis w/contrast material Dr. Misbah Elkins MD Work Phone: Start: 07-06-[address] Tayla Elkins MD Work Phone: Start: 07-06-2025 Mean corpuscular hemoglobin concentration determination Dr. Misbah Elkins MD Work Phone: Start: 07-06-[address] Misbah Elkins MD Work Phone: Start: 07-06-2025 Nucleated red blood cell count procedure Dr. Misbah Elkins MD Work Phone: Start: 07-06-2025 Platelet mean volume determination Dr. Misbah Elkins MD Work Phone: Start: 07-06-[address] Misbah Elkins MD Work Phone: Start: 07-06-[address] Misbah Elkins MD Work Phone: Start: 07-06-2025 End: 07-06-2025 Fluoroscopy guided endoscopic retrograde cholangiopancreatography Dr. Misbah Elkins MD Work Phone: Start: 05-24-2025 Benzodiazepine measurement, urine Dr. Jennifer Elkins MD Work Phone: Start: 05-24-2025 Cocaine measurement, urine Dr. Misbah ramirez MD Work Phone: Start: 05-24-2025 Methadone measurement, urine Dr. Misbah Elkins MD Work Phone: Start: 05-24-2025 Procedure Anat Brock MINI LAB OPERATOR-C Work Phone: Start: 05-24-[address] Misbah Elkins MD Work Phone: Start: 05-24-[address] Misbah valdes MD Work Phone: Start: 05-24-2025 Lipid 1996 panel - Serum or Plasma Soila Rustam TRANSMISSIONS SYSTEMS OPERATOR.LEGAL EXECUTIVE ASSISTANT Work Phone: Start: 05-10-2025 Computed tomography of abdomen and pelvis with intravenous contrast Dr. Misbah Elkins MD Work Phone: Start: 05-10-2025 Blood count smear mcrscp w/mnl difrntl wbc count Dr. Misbah Elkins MD Work Phone: Start: 05-10-2025 Mean corpuscular hemoglobin concentration determination Dr. Misbah Elkins MD Work Phone: Start: 05-10-[address] Misbah Elkins MD Work Phone: Start: 05-10-2025 Nucleated red blood cell count procedure Dr. Misbah Elkins MD Work Phone: Start: 05-10-2025 Platelet mean volume determination Dr. Misbah Elkins MD Work Phone: Start: 05-10-[address] Tayla Elkins MD Work Phone: Start: 05-10-[address] Misbah Elkins MD Work Phone: Start: 04-27-2025 Iadna-dna/rna gi pthgn multiplex probe [...] Misbah Elkins MD Work Phone: Start: 04-19-[address] Misbah Elkins MD Work Phone: Start: 04-19-2025 Nucleated red blood cell count procedure Dr. Misbah Elkins MD Work Phone: Start: 04-19-2025 Platelet mean volume determination Dr. Misbah Elkins MD Work Phone: Start: 04-18-[address] Tayla Elkins MD Work Phone: Start: 04-17-[address] Misbah michelle MD Work Phone: Start: 04-17-[address] Jennifer Elkins MD Work Phone: Start: 04-17-[address] Misbah Elkins MD Work Phone: Start: 04-16-[address] Misbah Elkins MD Work Phone: Start: 04-16-2025 Serum inorganic phosphate measurement Dr. Misbah Elkins MD Work Phone: Start: 04-16-2025 Total cholesterol:HDL ratio measurement Dr. Misbah Elkins MD Work Phone: Start: 04-16-[address] Misbah michelle MD Work Phone: Start: 04-16-2025 Benzodiazepine measurement, [...] Phone: Start: 04-15-[address] Misbah Elkins MD Work Phone: Start: 03-15-2025 Carbon dioxide measurement, partial pressure Dr. Misbah Elkins MD Work Phone: Start: 03-15-2025 Gases blood o2 saturation only direct esthela Dr. Misbah Elkins MD Work Phone: Start: 03-15-2025 Measurement of partial pressure of oxygen in blood Dr. Misbah Elkins MD Work Phone: Start: 03-15-[address] Misbah Elkins MD Work Phone: Start: 03-15-[address] Misbah Elkins MD Work Phone: [...] Misbah Elkins MD Work Phone: Start: 03-15-[address] Misbah Elkins MD Work Phone: [...] Misbah Elkins MD Work Phone: Start: 03-13-[address] Misbah Elkins MD Work Phone: [...] Start: 01-01-2025 Myelocyte percent differential count Dr. Mibsah Elkins MD Work Phone: Start: 01-01-2025 Platelet [...] blood o2 saturation only direct esthela Dr. Misabh Elkins MD Work Phone: Start: 12-05-2024 Measurement [...] Esophagoscp rig transoral hypopharynx crv breanne Senior TRANSMISSIONS SYSTEMS OPERATOR.LEGAL EXECUTIVE ASSISTANT Work Phone: Start: 11-07-2024 Radiologic exam chest 2 views Misbah michelle MD Work Phone: Start: 08-10-2024 Urnls dip stick/tablet rgnt auto w/o microscopy Soila Rustam TRANSMISSIONS SYSTEMS OPERATOR.LEGAL EXECUTIVE ASSISTANT Work Phone: Start: 01-25-2024 Radiologic exam chest 2 views Tara Alves son TRANSMISSIONS SYSTEMS OPERATOR.LEGAL EXECUTIVE ASSISTANT Work Phone: Start: 01-19-2024 X-ray of both feet Dr. Víctor Huerta Work Phone: Start: 01-11-2024 Lipid 1996 panel - Serum or Plasma Anat Gutiérrez TRANSMISSIONS SYSTEMS OPERATOR.LEGAL EXECUTIVE ASSISTANT Work Phone: Start: 01-04-2024 Investigation of transfusion reaction Dr. Víctor Huerta Work Phone: Start: 01-04-[address] Víctor Huerta Work Phone: Start: 01-02-2024 CT angiography of chest with contrast Start: 01-02-2024 Plain chest X-ray Start: 01-02-2024 Bacteria identified in Blood by Culture Dr. Víctor Huerta Work Phone: Start: 01-02-2024 SARS-CoV-2, Influenza & RSV (PCR) Start: 07-08-2023 Plain chest X-ray MINI LAB OPERATOR-Nichole EASTON Work Phone: Start: 07-08-2023 SARS-CoV-2 & FLU Antigen (Rapid) MINI LAB OPERATOR-Nichole Borges Work Phone: Start: 06-02-2023 Plain chest X-ray Start: 06-02-2023 CT of chest MINI LAB OPERATOR-C SOILA Work Phone: Start: 06-02-2023 SARS-CoV-2 & FLU Antigen (Rapid) Start: 11-25-2022 Radex spine lumbosacral 2/3 views Misbah Elkins MD Work Phone: Start: 11-11-2022 Radiologic exam chest 2 views Misbah michelle MD Work Phone: Start: 11-04-2022 Plain chest X-ray MINI LAB OPERATOR-C SOIAL EASTON Work Phone: Start: 11-04-2022 CT of chest, abdomen and pelvis without contrast MINI LAB OPERATOR-Nichole EASTON Work Phone: Start: 11-02-2022 Plain chest X-ray MINI LAB OPERATOR-Nichole EASTON Work Phone: Start: 10-24-2022 Renal function 2000 panel - Serum or Plasma Demarco Moya Start: 10-22-2022 End: 10-22-2022 [facility]&eval intermediate estab pt Inflammation of orbital region Jaime Aggarwal MD Work Phone: Comment on above: Inflammation of orbital region (Primary Dx) Start: 10-21-2022 End: 10-21-2022 [facility] xm&eval intermediate estab pt Orbital inflammation [employer] Comment on above: Orbital inflammation (Primary Dx) Start: 10-19-2022 CT of head with contrast MINI LAB OPERATOR-Nichole EASTON Work Phone: Start: 08-22-2022 CT angiography of chest with contrast MINI LAB OPERATOR-Nichole EASTON Work Phone: Start: 08-22-2022 Plain chest X-ray MINI LAB OPERATOR-C SOILA Work Phone: Start: 07-18-2022 INFLUENZA VACCINE QUADRIVALENT 6 MO - 64 YRS IM Soila Easton TRANSMISSIONS SYSTEMS OPERATOR.LEGAL EXECUTIVE ASSISTANT Work Phone: Start: 05-28-2022 CT of chest Start: 05-02-2022 Us abdominal real time w/image limited Soila Easton TRANSMISSIONS SYSTEMS OPERATOR.LEGAL EXECUTIVE ASSISTANT Work Phone: Start: 04-17-2022 Lipid 1996 panel - Serum or Plasma Soila Easton TRANSMISSIONS SYSTEMS OPERATOR.LEGAL EXECUTIVE ASSISTANT Work Phone: Start: 03-03-2022 SARS-CoV-2 & FLU Antigen (Rapid) MINI LAB OPERATOR-C Onesimo Teague MINI LAB OPERATOR Work Phone: Start: 03-03-2022 Plain chest X-ray MINI LAB OPERATOR-C Theron Teague MINI LAB OPERATOR Work Phone: Start: 01-10-2021 Colonoscopy Víctor Mcpherson TRANSMISSIONS SYSTEMS OPERATOR.LEGAL EXECUTIVE ASSISTANT, DNP Work Phone: Start: 08-28-2020 Mammography Víctor Mcpherson TRANSMISSIONS SYSTEMS OPERATOR.[facility], DNP Work Phone: Appendectomy Soila Valdes Work Phone: Bacteria identified in Blood by Culture MINI LAB OPERATOR-C SOILA Work Phone: Bacteria identified in Blood by Culture MINI LAB OPERATOR-C SOILA Work Phone: Cholecystectomy Soila Valdes Work Phone: Enteric Bacteriology MINI LAB OPERATOR-C CATHRYN Micaela Work Phone: H/O: surgery Gabby SILVA H/O: surgery Marshal Segura DO H/O: tubal ligation History of t ubal ligation MINI LAB OPERATOR-C Theron Teague MINI LAB OPERATOR Work Phone: History of appendectomy History of appendectomy MINI LAB OPERATOR-C Theron Teague MINI LAB OPERATOR Work Phone: Respiratory Panel (PCR) MINI LAB OPERATOR-C SOILA Work Phone: Respiratory syncytia l virus antigen assay MINI LAB OPERATOR-C SOILA Work Phone: SARS-CoV-2 & FLU Antigen (Rapid) SARS-CoV-2 & FLU Antigen (Rapid) MINI LAB OPERATORMiriam EASTON Work Phone: SARS-CoV-2 & FLU Antigen (Rapid) MINI LAB OPERATORMiriam EASTON Work Phone: SARS-CoV-2 & FLU Antigen (Rapid) MINI LAB OPERATORMiriam EASTON Work Phone: Urine culture MINI LAB OPERATORMiriam EASTON Work Phone: Plan of Treatment Date Care Activity Detail Author Start: 08-12-2030 Tetanus vaccination Tetanus (Td or Tdap) Booster [facility] Start: 05-24-2030 Lipid panel Lipid Screening [facility] Start: 01-10-2029 Lipid panel Lipid Screening [facility] Start: 2028 PNEUMOCOCCAL (3 - PPSV23 if available, else PCV20) PNEUMOCOCCAL (3 - PPSV23 if available, else PCV20) [facility] Start: 2028 PNEUMOCOCCAL (3 - PPSV23 or PCV20) PNEUMOCOCCAL (3 - PPSV23 or PCV20) [facility] Start: 2028 Pneumococcal vaccination [facility] Start: 03-23-2028 Diabetes Screening Diabetes Screening [facility] Start: 03-22-2028 Diabetes Screening Diabetes Screening [facility] Start: 03-16-2028 Diabetes Screening Diabetes Screening [facility] Start: 12-20-2027 Diabetes Screening Diabetes Screening [facility] Start: 08-12-2027 Diabetes Screening Diabetes Screening [facility] Start: 04-17-2027 Cholesterol [Mass/volume] in Serum or Plasma [facility] Start: 04-17-2027 Lipid 1996 panel - Serum or Plasma Lipid Screening [facility] Start: 04-17-2027 Lipid panel Lipid Screening [facility] Start: 04-17-2027 LIPID SCREEN LIPID SCREEN [facility] Start: 01-10-2027 Diabetes Screening Diabetes Screening [facility] Start: 07-19-2026 LIPID SCREEN LIPID SCREEN [facility] Start: 05-31-2026 Annual PCP Team Chronic Disease Visit Annual PCP Team Chronic Disease Visit [facility] Start: 04-25-2026 Annual PCP Team Chronic Disease Visit Annual PCP Team Chronic Disease Visit [facility] Start: 04-10-2026 Annual PCP Team Chronic Disease Visit Annual PCP Team Chronic Disease Visit [facility] Start: 02-19-2026 DIABETES SCREEN DIABETES SCREEN [facility] Start: 02-19-2026 Diabetes Screening Diabetes Screening [facility] Start: 01-13-2026 Annual PCP Team Chronic Disease Visit Annual PCP Team Chronic Disease Visit [facility] Start: 01-13-2026 BP Controlled (<130/80) BP Controlled (<130/80) [facility] Start: 01-13-2026 zzBP Controlled (<130/80) (Retired) zzBP Controlled (<130/80) (Retired) [facility] Start: 12-19-2025 Annual PCP Team Chronic Disease Visit Annual PCP Team Chronic Disease Visit [facility] Start: 12-19-2025 BP Controlled (<130/80) BP Controlled (<130/80) [facility] Start: 11-26-2025 DIABETES SCREEN DIABETES SCREEN [facility] Start: 11-11-2025 DIABETES SCREEN DIABETES SCREEN [facility] Start: 11-07-2025 Annual PCP Team Chronic Disease Visit Annual PCP Team Chronic Disease Visit [facility] Start: 11-07-2025 BP Controlled (<130/80) BP Controlled (<130/80) [facility] Start: 10-20-2025 DIABETES SCREEN DIABETES SCREEN [facility] Start: 08-30-2025 End: 08-30-2025 Patient encounter procedure 08/30/2025 11:00 AM EST Office Visit [facility] [place] [address] [place] [address] Soila Easton APRN.LEGAL EXECUTIVE ASSISTANT [address] [place] [address] 3 month follow up [facility] [place] Comment on above: 3 month follow up Start: 08-15-2025 Annual PCP Team Chronic Disease Visit Annual PCP Team Chronic Disease Visit [facility] Start: 08-15-2025 BP Controlled (<130/80) BP Controlled (<130/80) [facility] Start: 08-10-2025 Annual PCP Team Chronic Disease Visit Annual PCP Team Chronic Disease Visit [facility] Start: 08-05-2025 Annual PCP Team Chronic Disease Visit Annual PCP Team Chronic Disease Visit [facility] Start: 08-05-2025 BP Controlled (<130/80) BP Controlled (<130/80) [facility] Start: 07-10-2025 [facility] Start: 07-10-2025 End: 07-10-2025 Patient encounter procedure 07/10/2025 11:00 AM EDT Appointment Gastroenterology [address] [address] Jane Farrell MD [address] [place] [address] Chronic recurrent pancreatitis (HCC) [K86.1]4month f/u Gastroenterology Comment on above: Chronic recurrent pancreatitis (HCC) [K8 6.1]4month f/u Start: 07-10-2025 Ct abdomen & pelvis w/contrast material [facility] Start: 07-10-2025 End: 07-10[facility] Start: 07-07-2025 [facility] Start: 07-06-2025 Patient discharge [facility] Start: 06-20-2025 End: 06-20-2025 Patient encounter procedure 06/20/2025 2:00 PM EDT Office Visit Vascular Surgery [address] [facility] [place], [place] [id number] Desire Lennon, [address] [place] [address] x: Subclavian artery stenosis, left [I77.1] Vascular Surgery Comment on above: x: Subclavian artery stenosis, left [I77 .1] Start: 05-29-2025 Influenza vaccination [facility] Start: 05-26-2025 End: 05-26-2025 Patient encounter procedure 05/26/2025 11:00 AM EDT Office Visit Internal Medicine [place] [address] [place] [address] Soila Easton APRN.LEGAL EXECUTIVE ASSISTANT [address] [place] [address] 1 mth fu [facility] [place] Comment on above: 1 mth fu Start: 05-24-2025 [facility] Start: 05-24-2025 Procedure [facility] Start: 05-24-2025 Drug tst prsmv instrmnt chem analyzers pr date [facility] Start: 05-24-2025 Qualitative measurement of opiate agonist [facility] Start: 05-18-2025 Annual PCP Team Chronic Disease Visit Annual PCP Team Chronic Disease Visit [facility] Start: 05-18-2025 BP Controlled (<130/80) BP Controlled (<130/80) [facility] Start: 05-18-2025 End: 05-18-2025 Patient encounter procedure Vasculary Surgery Comment on above: Stenosis of left carotid artery [I65.22] Subclavian arterial stenosis [I77.1] Start: 05-12-2025 End: 05-12-2025 Patient encounter procedure Vasculary Surgery Comment on above: Stenosis of left carotid artery [I65.22] Subclavian arterial stenosis [I77.1] Start: 05-10-2025 [facility] Start: 05-09-2025 End: 08-07-2025 Lipid 1996 panel - Serum or Plasma LIPID PANEL, FASTING Lab Routine Hyperlipidemia Expected: 05/09/2025, Expires: 08/07/2025 [facility] Work Phone: Comment on above: Expected: 05/09/2025, Expires: Start: 04-27-2025 End: 04-27-2025 [facility] Start: 04-25-2025 End: 04-25-2025 Patient encounter procedure 04/25/2025 3:40 PM EDT Office Visit Internal [facility] [place] [address] [place] [address] Misbah Elkins MD [address] [place] [address] [facility] Hypertensive Urgency [facility] [place] Comment on above: [facility]pert[employer]ency Start: 04-25-2025 End: 04-25-2025 ambulatory 04/25/2025 10:00 AM EDT [facility] Neurology Pain [address] [place] [address] Milly Saleh APRN.LEGAL EXECUTIVE ASSISTANT, DNP [address] [place] [address] Chronic recurrent pancreatitis (HCC) [K86.1]; 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]; Chronic RUQ pain [R10.11, G89.29] Neurology Pain Comment on above: Chronic recurrent pancreatitis (HCC) [K8 6.1]; 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]; Chronic RUQ pain [R10.11, G89.29] Start: 04-19-2025 Patient discharge [facility] Start: 04-18-2025 End: 04-18-2025 Patient encounter procedure 04/18/2025 2:30 PM EDT Office Visit Gastroenterology [address] [address] Juan Senior APRN.LEGAL EXECUTIVE ASSISTANT [address] [place] [id number] Follow up ERCP Gastroenterology Comment on above: Follow up ERCP Start: 04-18-2025 Care planning and problem solving actions [facility] Start: 04-17-2025 DIABETES SCREEN DIABETES SCREEN [facility] Start: 04-17-2025 End: 04-17-2025 Patient encounter procedure 04/17/2025 1:00 PM EDT Office Visit [facility] [place] [address] [place] [address] Soila Easton APRN.LEGAL EXECUTIVE ASSISTANT [address] [place] [address] 3 month follow up [facility] [place] Comment on above: 3 month follow up Start: 04-16-2025 Application of intermittent pneumatic compression device [facility] Start: 04-16-2025 Following clinical pathway protocol [facility] Start: 04-16-2025 Aspiration precautions [facility] Start: 04-16-2025 Assessment of risk of venous thromboembolism [facility] Start: 04-16-2025 Insertion of catheter into peripheral vein [facility] Start: 04-16-2025 Measuring intake and output [facility] Start: 04-16-2025 Oxygen therapy [facility] Start: 04-16-2025 Providing care according to standard [facility] Start: 04-16-2025 Provision of activity privileges [facility] Start: 04-16-2025 Referral for physical therapy [facility] Start: 04-16-2025 Referral to service [facility] Start: 04-16-2025 [facility] Start: 04-16-2025 Verification routine [facility] Start: 04-16-2025 Admission procedure [facility] Start: 04-16-2025 Hospital admission, emergency, from emergency room, medical nature [facility] Start: 04-16-2025 Inhalation therapy procedure [facility] Start: 04-12-2025 End: 04-12-2025 Patient encounter procedure 04/12/2025 11:00 AM EDT Office Visit Pulmonary Medicine [address] [facility] [address] Madeline Sebastian MD [address] [facility] [address] hosp follow up [facility] Pulmonary Medicine Comment on above: hosp follow up [facility] Start: 04-10-2025 End: 04-10-2025 Patient encounter procedure 04/10/2025 1:40 PM EDT Office Visit [facility] [place] [address] [place] [address] Nicolas Greer APRN.COMMERCIAL ANNOUNCER [address] [facility] [place] [address] rescheduled from 04/04 [facility] [place] Comment on above: rescheduled from 04/04 Start: 04-04-2025 End: 04-04-2025 Patient encounter procedure 04/04/2025 3:40 PM EDT Office Visit Internal [facility] [place] [address] [place] [address] Misbah Elkins MD [address] [facility] [place] [address] hosp follow up from [facility] for pneumonia 03/15-03/23 [facility] [place] Comment on above: hosp follow up from [facility] for pneumonia 03/15-03/23 Start: 04-04-2025 End: 04-04-2025 ambulatory 04/04/2025 2:30 PM EDT [facility] Neurology Pain [address] [place] [address] Milly Saleh APRN.LEGAL EXECUTIVE ASSISTANT, DNP [address] [place] [address] Chronic recurrent pancreatitis (HCC) [K86.1]; 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]; Chronic RUQ pain [R10.11, G89.29] Neurology Pain Comment on above: Chronic recurrent pancreatitis (HCC) [K8 6.1]; 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]; Chronic RUQ pain [R10.11, G89.29] Start: 03-29-2025 End: 03-29-2025 Patient encounter procedure 03/29/2025 11:40 AM EDT Office Visit Internal Medicine [place] [address] [place] [address] Kervin Salmeron MD [address] [place], [place] [id number] hosp follow up [facility] Internal [facility] Comment on above: hosp follow up [facility] Start: 03-15-2025 Patient discharge [facility] Start: 03-15-2025 End: 03-15-2025 [facility] Start: 03-15-2025 Airway suction technique [facility] Start: 03-15-2025 End: 03-15-2025 Patient encounter procedure 03/15/2025 5:40 PM EDT Office Visit [facility] [place] [address] [place], [place] [address] Soila Easton APRN.LEGAL EXECUTIVE ASSISTANT [address] [place] [address] blood pressure low at ERCP procedure on 03/10 at [facility] [place] Comment on above: blood pressure low at ERCP procedure on 03/10 at main campus Start: 03-15-2025 Consultation [facility] Start: 03-15-2025 Consultation [facility] Start: 03-15-2025 Continuous pulse oximetry [facility] Start: 03-15-2025 Care planning and problem solving actions [facility] Start: 03-15-2025 Following clinical pathway protocol [facility] Start: 03-15-2025 [facility] Start: 03-14-2025 End: 03-14-2025 ambulatory 03/14/2025 10:00 AM EDT [facility] Neurology Pain [address] [place] [address] Milly Saleh APRN.LEGAL EXECUTIVE ASSISTANT, DNP [address] [place] [address] Chronic recurrent pancreatitis (HCC) [K86.1]; 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]; Chronic RUQ pain [R10.11, G89.29] Neurology Pain Comment on above: Chronic recurrent pancreatitis (HCC) [K8 6.1]; 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]; Chronic RUQ pain [R10.11, G89.29] Start: 03-14-2025 Triacylglycerol lipase measurement [facility] Start: 03-14-2025 Following clinical pathway protocol [facility] Start: 03-14-2025 Ambulation without limitation [facility] Start: 03-14-2025 Assessment of risk of venous thromboembolism [facility] Start: 03-14-2025 Insertion of catheter into peripheral vein [facility] Start: 03-14-2025 Oxygen therapy [facility] Start: 03-14-2025 Providing care according to standard [facility] Start: 03-14-2025 [facility] Start: 03-14-2025 Consultation [facility] Start: 03-14-2025 Inhalation therapy procedure [facility] Start: 03-14-2025 Patient referral to dietitian [facility] Start: 03-13-2025 Verification routine [facility] Start: 03-13-2025 Admission procedure [facility] Start: 03-13-2025 Hospital admission, emergency, from emergency room, medical nature [facility] Start: 03-13-2025 End: 03-13-2025 [facility] Start: 03-10-2025 End: 03-10-2025 Patient encounter procedure 03/10/2025 1:00 PM EDT Appointment Gastroenterology [address] [address] Jane Farrell MD [address] [place] [address] Other chronic pancreatitis (HCC) [K86.1] Gastroenterology Comment on above: Other chronic pancreatitis (HCC) [K86.1] Start: 02-26-2025 End: 02-26-2025 [facility] Start: 02-06-2025 End: 02-06-2025 Patient encounter procedure 02/06/2025 9:00 AM EDT Appointment Gastroenterology [address] [address] Jane Farrell MD [address] [place] [address] Other chronic pancreatitis (HCC) [K86.1]w/o interventions Gastroenterology Comment on above: Other chronic pancreatitis (HCC) [K86.1] w/o interventions Start: 01-30-2025 End: 01-30-2025 Anesthesia consultation 01/30/2025 11:10 AM EDT PAT Pre Anesthesia [address] [place] [address] pre procedure 02/06 Pre Anesthesia Comment on above: pre procedure 02/06 Start: 01-27-2025 [facility] Start: 01-27-2025 [facility] Start: 01-24-2025 Annual PCP Team Chronic Disease Visit Annual PCP Team Chronic Disease Visit [facility] Start: 01-13-2025 End: 01-13-2025 Patient encounter procedure [facility] [place] Comment on above: multiple concerns multiple concerns. S ee TE from 01/09/25. Start: 01-11-2025 Annual PCP Team Chronic Disease Visit Annual PCP Team Chronic Disease Visit [facility] Start: 01-11-2025 BP Controlled (<130/80) BP Controlled (<130/80) [facility] Start: 01-05-2025 End: 01-05-2025 ambulatory 01/05/2025 1:00 PM EDT [facility] Neurology Pain [address] [place] [address] Milly Saleh APRN.LEGAL EXECUTIVE ASSISTANT, DNP [address] [place], [place] [phone] Chronic recurrent pancreatitis (HCC) [K86.1]; 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]; Chronic RUQ pain [R10.11, G89.29] Neurology Pain Comment on above: Chronic recurrent pancreatitis (HCC) [K8 6.1]; 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]; Chronic RUQ pain [R10.11, G89.29] Start: 01-02-2025 End: 01-02-2025 Patient encounter procedure 01/02/2025 8:30 AM EDT Office Visit Neurology Pain [address] [place] [address] [place] [address] [place], [place] [id number] [facility]) Neurology Pain Comment on above: [facility]ULT TO [facility] (CHR ONIC PAIN) Start: 01-01-2025 [facility] Start: 01-01-2025 [facility] Start: 12-27-2024 End: 12-27-2024 Patient encounter procedure 12/27/2024 1:00 PM EDT Appointment Gastroenterology [address] [address] Jane Farrell MD [address] [address] Other chronic pancreatitis (HCC) [K86.1] Gastroenterology Comment on above: Other chronic pancreatitis (HCC) [K86.1] Start: 12-24-2024 [facility] Start: 12-19-2024 End: 03-20-2025 CBC W Auto Differential panel - Blood [facility] Comment on above: Expected: 12/19/2024, Expires: Start: 12-19-2024 End: 03-20-2025 Comprehensive metabolic 2000 panel - Serum or Plasma [facility] Comment on above: Expected: 12/19/2024, Expires: Start: 12-19-2024 End: 03-20-2025 Lipase [Enzymatic activity/volume] in Serum or Plasma [facility] Comment on above: Expected: 12/19/2024, Expires: Start: 12-16-2024 Patient referral [facility] Work Phone: Start: 12-15-2024 Annual PCP Team Chronic Disease Visit Annual PCP Team Chronic Disease Visit [facility] Start: 12-15-2024 BP Controlled (<130/80) BP Controlled (<130/80) [facility] Start: 12-12-2024 Patient discharge [facility] Start: 12-12-2024 End: 12-12-2024 Patient encounter procedure 12/12/2024 11:00 AM EDT Office Visit [facility] [place] [address] [place] [address] Misbah Elkins MD [address] [place] [address] 1 Month F/U [facility] [place] Comment on above: 1 Month F/U Start: 12-10-2024 Respiratory Culture Respiratory Culture [facility] Start: 12-09-2024 Referral to gastroenterology service [facility] Start: 12-08-2024 Videoswallow [facility] Start: 12-08-2024 Inhalation therapy procedure [facility] Start: 12-07-2024 Speech therapy assessment [facility] Start: 12-07-2024 Continuous pulse oximetry [facility] Start: 12-07-2024 [facility] Start: 12-05-2024 Referral to service [facility] Start: 12-05-2024 Consultation [facility] Start: 12-05-2024 Continuous positive airway pressure ventilation treatment [facility] Start: 12-04-2024 Following clinical pathway protocol [facility] Start: 12-04-2024 Ambulation without limitation [facility] Start: 12-04-2024 Assessment of risk of venous thromboembolism [facility] Start: 12-04-2024 Bacteria identified in Sputum by Culture [facility] Start: 12-04-2024 Catheterization of vein [facility] Start: 12-04-2024 Incentive spirometry [facility] Start: 12-04-2024 Insertion of catheter into peripheral vein [facility] Start: 12-04-2024 Measuring intake and output [facility] Start: 12-04-2024 Oxygen therapy [facility] Start: 12-04-2024 Providing care according to standard [facility] Start: 12-04-2024 Referral to service [facility] Start: 12-04-2024 Tobacco use cessation education [facility] Start: 12-04-2024 [facility] Start: 12-04-2024 Respiratory pathogens DNA and RNA panel - Respiratory specimen by KANDY with probe detection [facility] Start: 12-04-2024 Verification routine [facility] Start: 12-04-2024 Admission procedure [facility] Start: 12-04-2024 Hospital admission, emergency, from emergency room, medical nature [facility] Start: 12-04-2024 End: 12-04-2024 [facility] Start: 12-01-2024 End: 12-01-2024 Patient encounter procedure 12/01/2024 10:00 AM EST Appointment Gastroenterology [address] [place] [address] Jane Farrell MD [address] [place] [address] Chronic recurrent pancreatitis (HCC) [K86.1] Gastroenterology Comment on above: Chronic recurrent pancreatitis (HCC) [K8 6.1] Start: 11-29-2024 End: 02-28-2025 Lipid 1996 panel - Serum or Plasma LIPID PANEL BASIC Lab Routine Hyperlipidemia Expected: 11/29/2024, Expires: 02/28/2025 [facility] Work Phone: Comment on above: Expected: 11/29/2024, Expires: Start: 11-07-2024 End: 11-07-2024 Patient encounter procedure [facility] Comment on above: 3 month follow up 3 month follow up-di riuuss elevated WBC Start: 11-02-2024 End: 11-02-2024 Patient encounter procedure 11/02/2024 2:00 PM EST Office Visit Gastroenterology [address] [address] Juan Senior APRN.LEGAL EXECUTIVE ASSISTANT [address] [place] [address] Chronic recurrent pancreatitis (HCC) [K86.1]; Alcohol-induced chronic [...] Nausea Expected: 08/10/2024, Expires: 11/09/2024 [facility] Comment on above: Expected: 08/10/2024, Expires: Start: 08-10-2024 End: 11-09-2024 Comprehensive metabolic 2000 panel - Serum or Plasma COMPREHENSIVE METABOLIC PANEL Lab Routine Upper abdominal pain Nausea Expected: 08/10/2024, Expires: 11/09/2024 [facility] Comment on above: Expected: 08/10/2024, Expires: Start: 08-10-2024 End: 11-09-2024 Hemoglobin A1c in Blood HEMOGLOBIN A1C Lab Routine Urinary incontinence, unspecified type Urinary frequency Elevated glucose Expected: 08/10/2024, Expires: 11/09/2024 [facility] Comment on above: Expected: 08/10/2024, Expires: Start: 08-10-2024 End: 11-09-2024 Lipase [Enzymatic activity/volume] in Serum or Plasma LIPASE Lab Routine Upper abdominal pain Nausea Expected: 08/10/2024, Expires: 11/09/2024 [facility] Work Phone: Comment on above: Expected: 08/10/2024, Expires: Start: 08-05-2024 End: 11-04-2024 CBC W Auto Differential panel - Blood [facility] Work Phone: Comment on above: Expected: 08/05/2024, Expires: Start: 07-13-2024 End: 07-13-2024 Patient encounter procedure 07/13/2024 3:00 PM EDT Office Visit [facility] [address] [place] [address] Soila Easton APRN.LEGAL EXECUTIVE ASSISTANT [address] [place], [place] [id number] medication f/u [facility] [place] Comment on above: medication f/u Start: 07-05-2024 HPV TESTING HPV TESTING [facility] Start: 07-05-2024 Screening for malignant neoplasm of cervix HPV Testing [facility] Start: 06-21-2024 End: 06-21-2024 Patient encounter procedure 06/21/2024 2:00 PM EDT Office Visit [facility] [place] [address] [place] [address] Misbah Elkins MD [address] [place] [address] med check [facility] Comment on above: med check Start: 05-29-2024 Covid-19 Vaccine () Covid-19 Vaccine () [facility] Start: 05-29-2024 Covid-19 Vaccine ( season) Covid-19 Vaccine () [facility] Start: 05-29-2024 Influenza vaccination [facility] Start: 05-23-2024 End: 05-23-2024 Patient encounter procedure 05/23/2024 1:00 PM EDT Office Visit [facility] [place] [address] [place] [address] Soila Easton APRN.LEGAL EXECUTIVE ASSISTANT [address] [place] [address] medication f/u [facility] [place] Comment on above: medication f/u Start: 05-17-2024 End: 05-17-2024 Patient encounter procedure 05/17/2024 4:00 PM EDT Office Visit [facility] [place] [address] [place] [address] Misbah Elkins MD [address] [facility] [place] [address] medication follow up [facility] [place] Comment on above: medication follow up Start: 05-10-2024 End: 05-10-2024 Patient encounter procedure 05/10/2024 1:40 PM EDT Office Visit [facility] [address] [place] [address] Soila Easton TRANSMISSIONS SYSTEMS OPERATOR.LEGAL EXECUTIVE ASSISTANT [address] [place] [address] 3 month follow up [facility] Internal [facility] Comment on above: 3 month follow up [facility] Start: 04-21-2024 End: 04-21-2024 Patient encounter procedure 04/21/2024 8:20 AM EDT Office Visit [facility] [place] [address] [place] [address] Soila Easton TRANSMISSIONS SYSTEMS OPERATOR.LEGAL EXECUTIVE ASSISTANT [address] [place] [address] 3 month follow up [facility] [place] Comment on above: 3 month follow up [facility] Start: 04-15-2024 ANNUAL PCP TEAM CHRONIC DISEASE VISIT ANNUAL PCP TEAM CHRONIC DISEASE VISIT [facility] Start: 04-15-2024 BP CONTROLLED (<130/80) BP CONTROLLED (<130/80) [facility] in Start: 03-26-2024 DIABETES SCREEN DIABETES SCREEN [facility] Start: 03-18-2024 End: 03-18-2024 Patient encounter procedure 03/18/2024 1:20 PM EDT Office Visit [facility] [address] [place] [address] Soila Easton APRN.LEGAL EXECUTIVE ASSISTANT [address] [place] [address] 3 month follow up [facility] Comment on above: 3 month follow up [facility] Start: 01-25-2024 End: 01-25-2024 Patient encounter procedure 01/25/2024 1:20 PM EDT Office Visit [facility] [address] [place] [address] Tara Youngblood, UNA.LEGAL EXECUTIVE ASSISTANT [address] [facility] [place] [address] [facility] ER follow up, acute pain right foot and ankle, no clot [facility] Comment on above: [facility] ER follow up, acute pain right foot and ankle, no clot Start: 01-19-2024 [facility] Start: 01-19-2024 End: 04-19-2024 Basic metabolic 2000 panel - Serum or Plasma BASIC METABOLIC PANEL Lab Routine Hyponatremia Expected: 01/19/2024 (Approximate), Expires: 04/19/2024 [facility] Work Phone: Comment on above: Expected: 01/19/2024 (Approximate), Expi res: 04/19/2024 Start: 01-19-2024 End: 04-19-2024 CBC W Auto Differential panel - Blood COMPLETE BLOOD COUNT AND DIFFERENTIAL Lab Routine Leukocytosis, unspecified type Expected: 01/19/2024 (Approximate), Expires: 04/19/2024 [facility] Work Phone: Comment on above: Expected: 01/19/2024 (Approximate), Expi res: 04/19/2024 Start: 01-11-2024 Colonoscopy COLONOSCOPY [facility] Start: 01-11-2024 COLORECTAL CANCER SCREENING COLORECTAL CANCER SCREENING [facility] Start: 01-11-2024 Screening for malignant neoplasm of colon [facility] Start: 01-05-2024 Patient discharge [facility] Start: 01-05-2024 Blood chemistry [facility] Start: 01-04-2024 Respiratory microbial culture Respiratory Culture [facility] Start: 01-04-2024 [facility] Start: 01-03-2024 Respiratory secretion precautions [facility] Start: 01-02-2024 Assessment of risk of venous thromboembolism [facility] Start: 01-02-2024 Inhalation therapy procedure [facility] Start: 01-02-2024 Insertion of catheter into peripheral vein [facility] Start: 01-02-2024 Introduction of urinary catheter [facility] Start: 01-02-2024 Measuring intake and output [facility] Start: 01-02-2024 Oxygen therapy [facility] Start: 01-02-2024 Providing care according to standard [facility] Start: 01-02-2024 Provision of activity privileges [facility] Start: 01-02-2024 Referral to service [facility] Start: 01-02-2024 Tobacco use cessation education [facility] Start: 01-02-2024 [facility] Start: 01-02-2024 Following clinical pathway protocol [facility] Start: 01-02-2024 Legionella pneumophila Ag [Presence] in Urine [facility] Start: 01-02-2024 Respiratory pathogens DNA and RNA panel - Respiratory specimen by KANDY with probe detection [facility] Start: 01-02-2024 End: 01-02-2024 Streptococcus pneumoniae antigen assay [facility] Start: 01-02-2024 Hospital admission, emergency, from emergency room, medical nature [facility] Start: 01-02-2024 Admission procedure [facility] Start: 01-02-2024 Verification routine [facility] Start: 01-02-2024 End: 01-02-2024 Blood culture [facility] Start: 01-02-2024 [facility] Start: 01-02-2024 Bacteria identified in Blood by Culture Blood Culture [facility] Start: 01-02-2024 Legionella Antigen Legionella Antigen [facility] Start: 01-02-2024 Streptococcus pneumoniae Antigen (M Streptococcus pneumoniae Antigen (M [facility] Start: 12-27-2023 ANNUAL PCP TEAM CHRONIC DISEASE VISIT ANNUAL PCP TEAM CHRONIC DISEASE VISIT [facility] Start: 12-16-2023 End: 03-16-2024 25-hydroxyvitamin D3 [Mass/volume] in Serum or Plasma VITAMIN D 25 HYDROXY Lab Routine Vitamin D deficiency Expected: 12/16/2023, Expires: 03/16/2024 [facility] Work Phone: Comment on above: Expected: 12/16/2023, Expires: 4 Start: 12-16-2023 End: 03-16-2024 CBC W Auto Differential panel - Blood CBC + DIFF Lab Routine Alcohol-induced chronic pancreatitis (HCC) Tachycardia Hyperlipidemia, unspecified hyperlipidemia type Insomnia, unspecified type Vitamin D deficiency Chronic obstructive pulmonary disease, unspecified COPD type (HCC) Prediabetes Expected: 12/16/2023, Expires: 03/16/2024 [facility] Work Phone: Comment on above: Expected: 12/16/2023, Expires: 4 Start: 12-16-2023 End: 03-16-2024 Comprehensive metabolic 2000 panel - Serum or Plasma COMP METABOLIC PANEL Lab Routine Alcohol-induced chronic pancreatitis (HCC) Tachycardia Hyperlipidemia, unspecified hyperlipidemia type Insomnia, unspecified type Vitamin D deficiency Chronic obstructive pulmonary disease, unspecified COPD type (HCC) Prediabetes Expected: 12/16/2023, Expires: 03/16/2024 [facility] Work Phone: Comment on above: Expected: 12/16/2023, Expires: 4 Start: 12-16-2023 End: 03-16-2024 Lipid 1996 panel - Serum or Plasma LIPID PANEL BASIC Lab Routine Hyperlipidemia, unspecified hyperlipidemia type Expected: 12/16/2023, Expires: 03/16/2024 [facility] Work Phone: Comment on above: Expected: 12/16/2023, Expires: Start: 11-29-2023 ANNUAL PCP TEAM CHRONIC DISEASE VISIT ANNUAL PCP TEAM CHRONIC DISEASE VISIT [facility] Start: 11-29-2023 BP CONTROLLED (<130/80) BP CONTROLLED (<130/80) [facility] Start: 11-27-2023 BP CONTROLLED (<130/80) BP CONTROLLED (<130/80) [facility] Start: 11-25-2023 ANNUAL PCP TEAM CHRONIC DISEASE VISIT ANNUAL PCP TEAM CHRONIC DISEASE VISIT [facility] Start: 11-11-2023 ANNUAL PCP TEAM CHRONIC DISEASE VISIT ANNUAL PCP TEAM CHRONIC DISEASE VISIT [facility] Start: 11-11-2023 BP CONTROLLED (<130/80) BP CONTROLLED (<130/80) [facility] Start: 10-20-2023 Basic metabolic 2000 panel - Serum or Plasma Basic Metabolic Panel [facility] Start: 08-31-2023 Pneumococcal Vaccine: 50+ (3 of 3 - PCV20 or PCV21) Pneumococcal Vaccine: 50+ (3 of 3 - PCV20 or PCV21) [facility] Start: 08-27-2023 ANNUAL PCP TEAM CHRONIC DISEASE VISIT ANNUAL PCP TEAM CHRONIC DISEASE VISIT [facility] Start: 07-18-2023 ANNUAL PCP TEAM CHRONIC DISEASE VISIT ANNUAL PCP TEAM CHRONIC DISEASE VISIT [facility] Start: 07-18-2023 BP CONTROLLED (<130/80) BP CONTROLLED (<130/80) [facility] Start: 07-08-2023 [facility] Start: 06-30-2023 Patient referral [facility] Work Phone: Start: 06-02-2023 [facility] Start: 06-02-2023 CT of chest Low Dose CT Lung Screening [facility] Start: 06-02-2023 CT THORAX LUNG CANCER SCR C- CT THORAX LUNG CANCER SCR C- [facility] Start: 05-29-2023 Covid-19 Vaccine ( season) Covid-19 Vaccine () [facility] Start: 05-29-2023 Influenza vaccination [facility] Start: 05-27-2023 BP CONTROLLED (<130/80) BP CONTROLLED (<130/80) [facility] Start: 2023 RSV Vaccine (1 - 1-dose 60+ series) RSV Vaccine (1 - 1-dose 60+ series) [facility] Start: 2023 RSV Vaccine (1 - Risk 60-74 years 1-dose series) RSV Vaccine (1 - Risk 60-74 years 1-dose series) [facility] Start: 04-17-2023 ANNUAL PCP TEAM CHRONIC DISEASE VISIT ANNUAL PCP TEAM CHRONIC DISEASE VISIT [facility] Start: 04-17-2023 BP CONTROLLED (<130/80) BP CONTROLLED (<130/80) [facility] Start: 04-17-2023 COVID-19 VACCINE (3 - Booster for Pfizer series) COVID-19 VACCINE (3 - Booster for Pfizer series) [facility] Comment on above: Postponed from 12/27/2021 (Declined at t his time) Postponed from 09/23 (Declined at this time) Start: 04-17-2023 COVID-19 VACCINE (3 - Pfizer series) COVID-19 VACCINE (3 - Pfizer series) [facility] Comment on above: Postponed from 09/23/2021 (Declined at t his time) Start: 04-17-2023 HIV SCREENING HIV SCREENING [facility] Comment on above: Postponed from 1981 (Declined at t his time) Start: 04-17-2023 PAP TESTING PAP TESTING [facility] Comment on above: Postponed from 07/05/2020 (Declined at t his time) Start: 04-17-2023 SHINGRIX VACCINE (1 of 2) SHINGRIX VACCINE (1 of 2) [facility] Comment on above: Postponed from 2013 (Declined at t his time) Start: 04-15-2023 End: 06-15-2023 Hepatic function 2000 panel - Serum or Plasma [facility] Work Phone: Comment on above: Expected: 04/15/2023, Expires: Start: 04-08-2023 Zoledronic acid therapy ALPHA-1 ANTITRYPSIN DEFICIENCY SCREENING [facility] Comment on above: Postponed from 1993 (Declined at t his time) Start: 03-10-2023 End: 05-10-2023 Lipid 1996 panel - Serum or Plasma LIPID PANEL BASIC Lab Routine Hyperlipidemia Expected: 03/10/2023, Expires: 05/10/2023 [facility] Work Phone: Comment on above: Expected: 03/10/2023, Expires: Start: 03-09-2023 EPVPLASTIC, Provider: Yrn Ortega, Status: Pen, Time: 1:15 PM EPVPLASTIC, Provider: Yrn Ortega, Status: Pen, Time: 1:15 PM [id number]-Ioqfgw l 3200 Work Phone: Start: 02-28-2023 End: 04-30-2023 Hemoglobin A1c in Blood HGB A1C Lab Routine Prediabetes Expected: 02/28/2023 (Approximate), Expires: 04/30/2023 [facility] Work Phone: Comment on above: Expected: 02/28/2023 (Approximate), Expi res: 04/30/2023 Start: 01-28-2023 NPVPLASTIC, Provider: Yrn Ortega, Status: Pen, Time: 2:00 PM NPVPLASTIC, Provider: Yrn Ortega, Status: Pen, Time: 2:00 PM WJ-Salunzervkqgp-Azlwtw l 3200 Work Phone: Start: 12-15-2022 End: 12-15-2022 Patient encounter procedure 12/15/2022 Office Visit Family Practice Lalito Hoskins MD [address] [place] [address], [address] [place] [id number] [facility] Start: 12-03-2022 NPVPLASTIC, Provider: Yrn Ortega, Status: Pen, Time: 3:30 PM NPVPLASTIC, Provider: Yrn Ortega, Status: Pen, Time: 3:30 PM AY-Rcchyxkf-Tzcwqol Giang Work Phone: Start: 12-03-2022 Patient encounter procedure [facility] [place] Start: 11-28-2022 End: 01-28-2023 Basic metabolic 2000 panel - Serum or Plasma BASIC METABOLIC PNL Lab Routine Prediabetes Expected: 11/28/2022, Expires: 01/28/2023 [facility] Work Phone: Comment on above: Expected: 11/28/2022, Expires: 3 Start: 11-27-2022 End: 01-27-2023 Urinalysis complete panel - Urine URINALYSIS, WITH MICROSCOPIC Lab Routine CHUY (acute kidney injury) (HCC) Expected: 11/27/2022, Expires: 01/27/2023 [facility] Work Phone: Comment on above: Expected: 11/27/2022, Expires: 3 Start: 11-26-2022 End: 01-26-2023 Hemoglobin A1c in Blood [facility] Work Phone: Comment on above: Expected: 11/26/2022, Expires: 3 Start: 11-26-2022 End: 01-26-2023 VITAMIN B1 (THIAMINE), WHOLE BLOOD [facility] Work Phone: Comment on above: Expected: 11/26/2022, Expires: 3 Start: 11-26-2022 End: 01-26-2023 VITAMIN B5(PANTOTHENIC AID) BIOASSAY [facility] Work Phone: Comment on above: Expected: 11/26/2022, Expires: Start: 11-25-2022 End: 01-25-2023 Cobalamin (Vitamin B12) [Mass/volume] in Serum or Plasma [facility] Work Phone: Comment on above: Expected: 11/25/2022, Expires: 3 Start: 11-25-2022 End: 01-25-2023 Renal function 2000 panel - Serum or Plasma [facility] Work Phone: Comment on above: Expected: 11/25/2022, Expires: 3 Start: 11-11-2022 End: 01-11-2023 Basic metabolic 2000 panel - Serum or Plasma [facility] Work Phone: Comment on above: Expected: 11/11/2022, Expires: 3 Start: 11-11-2022 End: 11-11-2022 Patient encounter procedure 11/11/2022 Office Visit Ophthalmology Deny Dumont MD [address] [place] [address] [facility] Ophthalmology (Eye) [facility] Start: 11-07-2022 Patient discharge [facility] Start: 11-06-2022 End: 11-06-2022 Removal of urinary catheter [facility] Start: 11-06-2022 Care planning and problem solving actions [facility] Start: 11-06-2022 [facility] Start: 11-05-2022 Referral to occupational therapist [facility] Start: 11-05-2022 Referral to service [facility] Start: 11-04-2022 Care planning and problem solving actions [facility] Start: 11-04-2022 End: 11-04-2022 Blood culture [facility] Start: 11-04-2022 Referral to webmethods consultant [facility] Start: 11-04-2022 [facility] Start: 11-04-2022 [facility] Start: 11-03-2022 Care planning and problem solving actions [facility] Start: 11-03-2022 Oxygen therapy [facility] Start: 11-02-2022 Following clinical pathway protocol [facility] Start: 11-02-2022 Physiotherapy of chest [facility] Start: 11-02-2022 Consultation [facility] Start: 11-02-2022 Continuous pulse oximetry [facility] Start: 11-02-2022 Dual pressure spontaneous ventilation support [facility] Start: 11-02-2022 Inhalation therapy procedure [facility] Start: 11-01-2022 Admission procedure [facility] Start: 10-25-2022 End: 10-26-2023 Phenylephrine 0.25% Topical (Preparation H) 1 application Ointment Every 8 Hours ; OintmentDOSE = 1 application(s) Topical Every 8 Hours, PRN HemorrhoidsApply to Buttock Start: 25-Oct-2022 End: 25-Oct-2023 Ordered: 25-Oct-2022 Justyn Richetr Intent [facility] Start: 10-24-2022 End: 10-25-2023 [facility] Start: 10-19-2022 Blood culture [facility] Start: 08-22-2022 [facility] Start: 07-18-2022 End: 09-17-2022 [place] BY IFA SCREEN [facility] Work Phone: Comment on above: Expected: 07/18/2022, Expires: 2 Start: 07-18-2022 End: 09-17-2022 C reactive protein [Mass/volume] in Serum or Plasma [facility] Work Phone: Comment on above: Expected: 07/18/2022, Expires: 2 Start: 07-18-2022 End: 09-17-2022 Erythrocyte sedimentation rate [facility] Work Phone: Comment on above: Expected: 07/18/2022, Expires: 2 Start: 07-18-2022 End: 09-17-2022 Rheumatoid factor [Units/volume] in Serum or Plasma [facility] Work Phone: Comment on above: Expected: 07/18/2022, Expires: 2 Start: 06-28-2022 Influenza vaccination Influenza Vaccine (#1) [facility] Start: 05-29-2022 Influenza vaccination [facility] Start: 04-17-2022 End: 06-17-2022 25-hydroxyvitamin D3 [Mass/volume] in Serum or Plasma [facility] Work Phone: Comment on above: Expected: 04/17/2022, Expires: 2 Start: 04-17-2022 End: 06-17-2022 CBC W Auto Differential panel - Blood [facility] Work Phone: Comment on above: Expected: 04/17/2022, Expires: 2 Start: 04-17-2022 End: 06-17-2022 Comprehensive metabolic 2000 panel - Serum or Plasma [facility] Work Phone: Comment on above: Expected: 04/17/2022, Expires: 2 Start: 04-17-2022 End: 06-17-2022 Ferritin [Mass/volume] in Serum or Plasma [facility] Work Phone: Comment on above: Expected: 04/17/2022, Expires: 2 Start: 04-17-2022 End: 06-17-2022 Iron and Iron binding capacity panel - Serum or Plasma [facility] Work Phone: Comment on above: Expected: 04/17/2022, Expires: 2 Start: 04-17-2022 End: 06-17-2022 Lipid 1996 panel - Serum or Plasma [facility] Work Phone: Comment on above: Expected: 04/17/2022, Expires: 2 Start: 04-17-2022 End: 06-17-2022 Thyrotropin [Units/volume] in Serum or Plasma [facility] Work Phone: Comment on above: Expected: 04/17/2022, Expires: 2 Start: 03-26-2022 ANNUAL PCP TEAM CHRONIC DISEASE VISIT ANNUAL PCP TEAM CHRONIC DISEASE VISIT [facility] Start: 03-26-2022 BP CONTROLLED (<130/80) BP CONTROLLED (<130/80) [facility] Start: 03-03-2022 [facility] Work Phone: Start: 02-11-2022 End: 04-13-2022 Basic metabolic 2000 panel - Serum or Plasma BASIC METABOLIC PNL Lab Routine Essential hypertension, benign Expected: 02/11/2022, Expires: 04/13/2022 [facility] Work Phone: Comment on above: Expected: 02/11/2022, Expires: 2 Start: 02-11-2022 End: 04-13-2022 SCHEDULE LAB TESTING SCHEDULE LAB TESTING Lab Routine Expected: 02/11/2022, Expires: 04/13/2022 [facility] Work Phone: Comment on above: Expected: 02/11/2022, Expires: 2 Start: 09-23-2021 COVID-19 Vaccine (3 - Booster for Pfizer series) COVID-19 Vaccine (3 - Booster for Pfizer series) [facility] Start: 09-23-2021 COVID-19 VACCINE (3 - Pfizer series) COVID-19 VACCINE (3 - Pfizer series) [facility] Start: 08-28-2021 Mammography [facility] [facility] Start: 08-28-2021 Screening for malignant neoplasm of breast Mammogram Screening [facility] Start: 07-09-2021 COVID-19 VACCINE (2 - Pfizer 3-dose series) COVID-19 VACCINE (2 - Pfizer 3-dose series) [facility] Start: 07-09-2021 COVID-19 VACCINE (2 - Pfizer series) COVID-19 VACCINE (2 - Pfizer series) [facility] Start: 07-05-2020 PAP TESTING PAP TESTING [facility] Start: 07-05-2020 Screening for malignant neoplasm of cervix [facility] Start: 12-20-2015 FECAL OCCULT BLOOD FECAL OCCULT BLOOD [facility] Start: 12-20-2015 Screening for malignant neoplasm of colon Fecal Occult Blood [facility] Start: 2013 Measurement of occult blood in single stool specimen FIT [facility] Start: 2013 Screening for malignant neoplasm of colon CRC Screening [facility] Start: 2013 Shingles (RZV) Vaccine (1 of 2) Shingles (RZV) Vaccine (1 of 2) [facility] Start: 2013 SHINGRIX VACCINE (1 of 2) SHINGRIX VACCINE (1 of 2) [facility] Start: 2008 Cholesterol [Mass/volume] in Serum or Plasma Cholesterol [facility] Start: 2008 COLOGUARD (FIT-DNA) COLOGUARD (FIT-DNA) [facility] Start: [address] COLONOGRAPHY [facility] Start: 2008 Screening for malignant neoplasm of colon [facility] Start: 2008 SIGMOIDOSCOPY SIGMOIDOSCOPY [facility] Start: 2003 Screening for malignant neoplasm of breast Mammography [facility] Start: 1993 Zoledronic acid therapy ALPHA-1 ANTITRYPSIN DEFICIENCY SCREENING [facility] Start: 1984 Screening for malignant neoplasm of cervix Pap Smear [facility] Start: 1981 Hepatitis C screening Hepatitis C Antibody [facility] Start: 1981 HIV SCREENING HIV SCREENING [facility] Start: 1981 HIV screening HIV Screening [facility] Start: 1981 Tetanus + diphtheria + acellular pertussis vaccine (product) Tdap Booster [facility] Start: 1978 HIV screening HIV Test [facility] Start: 1963 Abdominal aortic aneurysm screening Pulmonary Function Testing [facility] Start: 1963 Screening for malignant neoplasm of colon Colonoscopy [facility] Anion gap in Serum o r Plasma [facility] Anion gap measurement [facility] Bacteria identified in Blood by Culture Blood Culture [facility] Bacteria identified in Blood by Culture Blood Culture [facility] Bacteria identified in Sputum by Respiratory culture [facility] BUN/Creatinine ratio [facility] BUN/Creatinine ratio [facility] Calcium [Mass/volume ] in Serum or Plasma [facility] Calcium [Mass/volume ] in Serum or Plasma [facility] Carbon dioxide, tota l [Moles/volume] in Central venous blood [facility] Carbon dioxide, tota l [Moles/volume] in Serum or Plasma [facility] Chloride [Moles/volu me] in Serum or Plasma [facility] Clostridioides diffi cile DNA [Presence] in Unspecified specimen by KANDY with probe detection [facility] Creatinine [Mass/vol ume] in Serum or Plasma [facility] Creatinine [Moles/volume] in Serum or Plasma [facility] End: 09-14-2025 CT Abdomen and Pelvis W contrast IV CT ABD/PEL W IVCON Radiology Routine Alcoholic hepatitis without ascites Acute pancreatitis, unspecified complication status, unspecified pancreatitis type Upper abdominal pain Nausea Elevated lipase Generalized abdominal tenderness without rebound tenderness 1 Occurrences starting 08/15/2024 until 09/14/2025 [facility] Work Phone: Comment on above: 1 Occurrences starting 08/15/2024 until 09/14/2025 CT Abdomen and Pelvi s W contrast IV CT ABD/PEL W IVCON Radiology Routine Alcoholic hepatitis without ascites Acute pancreatitis, unspecified complication status, unspecified pancreatitis type Upper abdominal pain Nausea Elevated lipase Generalized abdominal tenderness without rebound tenderness 08/23/2024 9:53 AM EST [facility] Work Phone: CT Chest [facility] CT Chest [facility] End: 06-03-2025 DBT Breast - bilateral screening SIMI SCREENING W CYNTHIA Radiology Routine Encounter for screening mammogram for breast cancer 1 Occurrences starting 05/04/2024 until 06/03/2025 [facility] Work Phone: Comment on above: 1 Occurrences starting 05/04/2024 until 06/03/2025 End: 05-11-2026 DBT Breast - bilateral screening SIMI SCREENING W CYNTHIA Radiology Routine Encounter for screening mammogram for breast cancer 1 Occurrences starting 04/11/2025 until 05/11/2026 [facility] Work Phone: Comment on above: 1 Occurrences starting 04/11/2025 until 05/11/2026 End: 11-02-2025 EGD - THERAPEUTIC, EUS, OR TUBE INTERVENTIONS EGD - THERAPEUTIC, EUS, OR TUBE INTERVENTIONS Endoscopy Routine Chronic recurrent pancreatitis (HCC) Alcohol-induced chronic pancreatitis (HCC) Chronic RUQ pain 1 Occurrences starting 11/02/2024 until 11/02/2025 [facility] Work Phone: Comment on above: 1 Occurrences starting 11/02/2024 until 11/02/2025 Elastase.pancreatic [Presence] in Stool [facility] End: 11-27-2023 EMG(NEURO/NI) EMG(NEURO/NI) EMG Routine Numbness and tingling of both lower extremities Neuropathy Numbness and tingling of both feet 1 Occurrences starting 11/26/2022 until 11/27/2023 [facility] Work Phone: Comment on above: 1 Occurrences starting 11/26/2022 until 11/27/2023 End: 12-01-2025 ERCP ERCP Endoscopy Routine Other chronic pancreatitis (HCC) 1 Occurrences starting 12/01/2024 until 12/01/2025 [facility] Work Phone: Comment on above: 1 Occurrences starting 12/01/2024 until 12/01/2025 End: 04-04-2026 ERCP ERCP Endoscopy Routine Chronic recurrent pancreatitis (HCC) 1 Occurrences starting 04/04/2025 until 04/04/2026 [facility] Work Phone: Comment on above: 1 Occurrences starting 04/04/2025 until 04/04/2026 Erythrocyte mean corpuscular volume determination [facility] Folate [Moles/volume ] in Serum or Plasma [facility] Giardia lamblia Ag [Presence] in Stool by Immunoassay [facility] Giardia lamblia anti gen assay [facility] Glucose [Mass/volume ] in Serum or Plasma [facility] Glucose [Mass/volume ] in Serum or Plasma [facility] Hematocrit [Volume Fraction] of Blood [facility] Hemoglobin [Mass/vol ume] in Blood [facility] Legionella pneumophi la Ag [Presence] in Urine [facility] Leukocytes [#/volume ] in Blood [facility] End: 07-02-2024 SIMI SCREENING SIMI SCREENING Radiology Routine Encounter for screening mammogram for breast cancer 1 Occurrences starting 06/03/2023 until 07/02/2024 [facility] Work Phone: Comment on above: 1 Occurrences starting 06/03/2023 until 07/02/2024 Mean corpuscular hemoglobin concentration determination [facility] Mean corpuscular hemoglobin determination [facility] Measurement of renal function [facility] Measurement of renal function [facility] Microorganism identi fied in Unspecified specimen by Culture [facility] Microscopic observat ion [Identifier] in Unspecified specimen by Gram stain [facility] Neutrophil count [facility] Neutrophil percent differential count [facility] Nucleic acid assay [facility] Ova OR parasites identification [facility] Ova OR parasites identification [facility] Patient Education [facility] Work Phone: Patient referral [facility] Work Phone: Platelets [#/volume] in Blood [facility] Potassium [Moles/vol ume] in Serum or Plasma [facility] Potassium measurement [facility] Protein measurement [facility] End: 12-25-2023 Radex spine lumbosacral 2/3 views XR LUMBAR GENERAL 3V AP/LAT/L5-S1 Radiology Routine Numbness and tingling of both lower extremities 1 Occurrences starting 11/25/2022 until 12/25/2023 [facility] Work Phone: Comment on above: 1 Occurrences starting 11/25/2022 until 12/25/2023 Radex spine lumbosac ral 2/3 views XR LUMBAR GENERAL 3V AP/LAT/L5-S1 Radiology Routine Numbness and tingling of both lower extremities 11/25/2022 11:18 AM EST [facility] Work Phone: Red blood cell count [facility] Red cell distributio n width determination [facility] End: 07-25-2023 Screening mammography bi 2-view breast inc cad SIMI SCREENING Radiology Routine Encounter for screening mammogram for breast cancer 1 Occurrences starting 06/25/2022 until 07/25/2023 [facility] Work Phone: Comment on above: 1 Occurrences starting 06/25/2022 until 07/25/2023 Serum chloride measurement [facility] Sodium [Moles/volume ] in Serum or Plasma [facility] Sodium measurement [facility] Streptococcus pneumo niae antigen assay [facility] Triacylglycerol lipa se measurement [facility] UA DIP, URINE (POC) UA DIP, URIN E (POC) Lab Routine Urinary incontinence, unspecified type Urinary frequency Ordered: 08/10/2024 [facility] Comment on above: Ordered: 08/10/2024 Urea nitrogen [Mass/volume] in Serum or Plasma [facility] Urea nitrogen [Mass/volume] in Serum or Plasma [facility] Urine culture [facility] End: 09-09-2025 US Abdomen RUQ US ABD RIGHT UPPER QUADRANT Radiology Routine Upper abdominal pain Nausea 1 Occurrences starting 08/10/2024 until 09/09/2025 [facility] Comment on above: 1 Occurrences starting 08/10/2024 until 09/09/2025 End: 05-17-2023 Us abdominal real time w/image limited US ABD RT UPPER QUADRANT Radiology Routine Alcohol-induced chronic pancreatitis (HCC) Alcoholic hepatitis without ascites 1 Occurrences starting 04/17/2022 until 05/17/2023 [facility] Work Phone: Comment on above: 1 Occurrences starting 04/17/2022 until 05/17/2023 Us abdominal real ti me w/image limited US ABD RT UPPER QUADRANT Radiology Routine Alcohol-induced chronic pancreatitis (HCC) Alcoholic hepatitis without ascites 05/02/2022 9:37 AM EDT [facility] Work Phone: End: 04-25-2026 US Carotid arteries - bilateral US CAROTID ARTERIES [facility] Vascular Lab Routine Stenosis of left carotid artery 1 Occurrences starting 04/25/2025 until 04/25/2026 [facility] Comment on above: 1 Occurrences starting 04/25/2025 until 04/25/2026 End: 04-25-2026 US Upper extremity artery US ARM ARTERIAL [facility] Vascular Lab Routine Subclavian arterial stenosis 1 Occurrences starting 04/25/2025 until 04/25/2026 [facility] Work Phone: Comment on above: 1 Occurrences starting 04/25/2025 until 04/25/2026 XR Abdomen Single view [facility] End: 02-23-2025 XR Chest PA and Lateral XR CHEST 2V FRONTAL/LAT Radiology Routine Pneumonia due to infectious organism, unspecified laterality, unspecified part of lung Acute right ankle pain 1 Occurrences starting 01/25/2024 until 02/23/2025 [facility] Work Phone: Comment on above: 1 Occurrences starting 01/25/2024 until 02/23/2025 XR Chest PA and Lateral XR CHEST 2V FRONTAL/LAT Radiology Routine Pneumonia due to infectious organism, unspecified laterality, unspecified part of lung Acute right ankle pain 01/25/2024 2:13 PM EDT [facility] End: 09-09-2025 XR Chest PA and Lateral XR CHEST 2V FRONTAL/LAT Radiology Routine Shortness of breath Chronic obstructive pulmonary disease with acute exacerbation (HCC) Tobacco use disorder Pulmonary emphysema, unspecified emphysema type (HCC) 1 Occurrences starting 08/10/2024 until 09/09/2025 [facility] Comment on above: 1 Occurrences starting 08/10/2024 until 09/09/2025 XR Chest PA and Lateral XR CHEST 2V FRONTAL/LAT Radiology Routine Shortness of breath Chronic obstructive pulmonary disease with acute exacerbation (HCC) Tobacco use disorder Pulmonary emphysema, unspecified emphysema type (HCC) 08/10/2024 5:47 PM EST [facility] End: 01-18-2026 XR Chest PA and Lateral XR CHEST 2V FRONTAL/LAT Radiology Routine Chronic recurrent pancreatitis (HCC) Chronic obstructive pulmonary disease, unspecified COPD type (HCC) Hospital discharge follow-up 1 Occurrences starting 12/19/2024 until 01/18/2026 [facility] Work Phone: Comment on above: 1 Occurrences starting 12/19/2024 until 01/18/2026 XR Chest PA and Lateral XR CHEST 2V FRONTAL/LAT Radiology Routine Chronic recurrent pancreatitis (HCC) Chronic obstructive pulmonary disease, unspecified COPD type (HCC) Hospital discharge follow-up 12/19/2024 4:01 PM EDT [facility] Immunizations Immunization Date Immunization Notes Care Provider [facility] 08-05-2024 influenza, seasonal, injectable Misbah Elkins MD Work Phone: [facility] 08-05-2024 influenza virus vacc ine, unspecified formulation Herman Nevarez RN [facility] 07-18-2022 influenza, injectabl e, quadrivalent, contains preservative Soila Easton TRANSMISSIONS SYSTEMS OPERATOR.IG[employer] Work Phone: [facility] 07-18-2022 influenza, injectabl e, quadrivalent, preservative free MINI LAB OPERATOR-C SOILA OLDER Work Phone: [facility] 07-18-2022 influenza, seasonal, injectable MINI LAB OPERATOR-C SOILA OLDER Work Phone: [facility] 07-18-2022 influenza virus vacc ine, unspecified formulation Soila Easton TRANSMISSIONS SYSTEMS OPERATOR.LEGAL EXECUTIVE ASSISTANT Work Phone: [facility] 06-18-2021 Covid (Pfizer) MINI LAB OPERATOR-C SOILA SCHNEIDER R Work Phone: [facility] 08-12-2020 tetanus toxoid, redu enid diphtheria toxoid, and acellular pertussis vaccine, adsorbed Víctor Mcpherson APRN.TIFFANIE COSTA Work Phone: [facility] Work Phone: 05-24-2020 influenza, injectabl e, quadrivalent, contains preservative Víctor Mcpherson APRN.TIFFANIE COSTA Work Phone: [facility] 07-26-2019 influenza, injectabl e, quadrivalent, contains preservative Víctor Blaz TRANSMISSIONS SYSTEMS OPERATOR.LEGAL EXECUTIVE ASSISTANT, DNP Work Phone: [facility] 08-31-2018 pneumococcal polysaccharide vaccine, 23 valent Víctor Blaz TRANSMISSIONS SYSTEMS OPERATOR.LEGAL EXECUTIVE ASSISTANT, DNP Work Phone: [facility] 08-17-2018 influenza, seasonal, injectable Víctor Blaz TRANSMISSIONS SYSTEMS OPERATOR.LEGAL EXECUTIVE ASSISTANT, DNP Work Phone: [facility] 08-11-2018 Influenza, injectabl e, Madin Vernalis Canine Kidney, preservative free, quadrivalent Víctor Blaz TRANSMISSIONS SYSTEMS OPERATOR.LEGAL EXECUTIVE ASSISTANT, DNP Work Phone: [facility] Work Phone: 07-13-2018 influenza, injectabl e, quadrivalent, preservative free MINI LAB OPERATOR-C SOILA EASTON Work Phone: [facility] 07-13-2018 influenza, seasonal, injectable MINI LAB OPERATOR-C Theron Teague MINI LAB OPERATOR Work Phone: [facility] 07-13-2018 influenza, seasonal, injectable, preservative free Víctor Blaz TRANSMISSIONS SYSTEMS OPERATOR.LEGAL EXECUTIVE ASSISTANT, DNP Work Phone: [facility] Work Phone: 08-27-2017 pneumococcal conjuga te vaccine, 13 valent Víctor Blaz TRANSMISSIONS SYSTEMS OPERATOR.LEGAL EXECUTIVE ASSISTANT, DNP Work Phone: [facility] 07-13-2017 influenza, injectabl e, quadrivalent, contains preservative Víctor Blaz TRANSMISSIONS SYSTEMS OPERATOR.LEGAL EXECUTIVE ASSISTANT, DNP Work Phone: [facility] 06-24-2016 influenza, injectabl e, quadrivalent, contains preservative Víctor Blaz TRANSMISSIONS SYSTEMS OPERATOR.LEGAL EXECUTIVE ASSISTANT, DNP Work Phone: [facility] 10-28-2013 Influenza virus vaccine MINI LAB OPERATOR-C Theron Teague MINI LAB OPERATOR Work Phone: [facility] 10-28-2013 influenza, seasonal, injectable, preservative free Víctor Blaz TRANSMISSIONS SYSTEMS OPERATOR.IGOR DNP Work Phone: [facility] Work Phone: 10-28-2013 Dr. Misbah valdes MD Work Phone: [facility] 07-17-2012 influenza virus vacc ine, unspecified formulation Víctor Mcpherson APRN.[facility] Work Phone: [facility] 07-19-2011 influenza virus vacc ine, unspecified formulation Víctor Mcpherson APRN.[facility] Work Phone: [facility] Work Phone: 07-30-2010 influenza virus vacc ine, unspecified formulation Víctor Blarose HEART.[facility] Work Phone: [facility] 10-05-2009 pneumococcal polysaccharide vaccine, 23 valent Víctor Blarose HEART.[facility] Work Phone: [facility] Work Phone: 10-05-2009 Pneumococcal Vaccine MINI LAB OPERATOR-C Onesimo Teague NP Work Phone: [facility] Work Phone: 10-05-2009 pneumococcal vaccine , unspecified formulation MINI LAB OPERATOR-C SOILA EASTON Work Phone: [facility] 08-14-2009 novel influenza-H1N1 -09, all formulations Víctor Mcpherson APRN.[facility] Work Phone: [facility] 07-06-2009 influenza virus vacc ine, unspecified formulation Víctor Mcpherson APRN.[facility] Work Phone: [facility] Work Phone: 03-28-2007 pneumococcal polysaccharide vaccine, 23 valent Víctor Blarose LEONN.[facility] Work Phone: [facility] Payers Date Payer Category Payer Self-pay 2015 Unknown [id number] 2015 Unknown [id number] 2006 Medicaid [employer] [id number] 2006-Present [phone] [address] [place] [address] Medicaid [id number]. [id number] 2006 Medicaid [id number]. [id number]. [id number] 1963 Unknown [id number] 2.16.840.1.826570.3.579.2.732 1963 Unknown [id number] 2.16.840.1.687131.3.579.2.732 1963 Unknown [id number] 2.16.840.1.805214.3.579.2.732 1963 Unknown [id number] 2.16.840.1.639584.3.579.2.732 1963 Unknown [id number] 2.16.840.1.518439.3.579.2.732 1963 Unknown [id number] 2.16.840.1.187955.3.579.2.732 1963 Unknown [id number] 2.16.840.1.632223.3.579.2.732 1963 Unknown [id number] 2.16.840.1.928735.3.579.2.732 1963 Unknown [id number] 2.16.840.1.586914.3.579.2.732 1963 Unknown [id number] 2.16.840.1.373746.3.579.2.356 1963 Unknown [id number] 2.16.840.1.696120.3.579.2.356 1963 Unknown [id number] 2.16.840.1.086889.3.579.2.356 1963 Unknown [id number] 2.16.840.1.550552.3.579.2.356 1963 Unknown [id number] 2.16.840.1.786400.3.579.2.356 1963 Unknown [id number] 2.16.840.1.991933.3.579.2.356 1963 Unknown [id number] 2.16.840.1.602714.3.579.2.356 Unknown Unknown [id number] 2.16840.1.537538.3.579.2.462 Unknown [id number] 2.16.840.1.293730.3.579.2.462 Unknown [id number] 2.840.1.283844.3.579.2.462 Unknown [id number] 2.840.1.973110.3.579.2.462 Unknown [id number] 2.840.1.368891.3.579.2.462 Unknown [id number] 2.840.1.915906.3.579.2.462 Unknown [id number] 2.840.1.798066.3.579.2.462 Unknown [id number] 2.16840.1.155922.3.579.2.462 Unknown [id number] 2.16840.1.744950.3.579.2.462 Unknown [id number] 2.840.1.133171.3.579.2.462 Unknown [id number] 2.16840.1.049936.3.579.2.462 Unknown [id number] 2.16.840.1.235487.3.579.2.462 Unknown [id number] 2.16.840.1.863189.3.579.2.462 Unknown [id number] 2.16.840.1.015767.3.579.2.462 Unknown [id number] 2.16840.1.781528.3.579.2.462 Unknown [id number] 2.16.840.1.912286.3.579.2.462 Unknown [id number] 2.16.840.1.349390.3.579.2.462 Unknown [id number] 2.16.840.1.597654.3.579.2.462 Unknown [id number] 2.16.840.1.726867.3.579.2.462 Unknown [id number] 2.16.840.1.105296.3.579.2.462 Unknown [id number] 2.840.1.353051.3.579.2.462 Unknown [id number] 2.840.1.957843.3.579.2.462 Unknown [id number] 2.840.1.888287.3.579.2.462 Unknown [id number] 2.840.1.565250.3.579.2.462 Unknown [id number] 2.840.1.476734.3.579.2.462 Unknown [id number] 2.840.1.568138.3.579.2.462 Unknown [id number] 2.840.1.445426.3.579.2.462 Unknown [id number] 2.840.1.333115.3.579.2.462 Unknown [id number] 2.840.1.253949.3.579.2.462 Unknown [id number] 2.840.1.713895.3.579.2.462 Unknown [id number] 2.840.1.398134.3.579.2.462 Unknown [id number] 2.840.1.125043.3.579.2.462 Unknown [id number] 2.16.840.1.902517.3.579.2.462 Unknown [id number] 2.16.840.1.334965.3.579.2.462 Unknown [id number] 2.16.840.1.287682.3.579.2.462 Unknown [id number] 2.16.840.1.047240.3.579.2.462 Unknown [id number] 2.16.840.1.362038.3.579.2.462 Unknown [id number] 2.16.840.1.666806.3.579.2.462 Unknown [id number] 2.16.840.1.156925.3.579.2.462 Unknown [id number] 2.16.840.1.398701.3.579.2.462 Unknown [id number] 2.16.840.1.997997.3.579.2.462 Unknown [id number] 2.16.840.1.325758.3.579.2.462 Unknown [id number] 2.16.840.1.236996.3.579.2.462 Unknown [id number] 2.16.840.1.628943.3.579.2.462 Unknown [id number] 2.16.840.1.256342.3.579.2.462 Unknown [id number] 2.16.840.1.386228.3.579.2.462 Unknown [id number] 2.16840.1.756382.3.579.2.462 Unknown [id number] 2.16.840.1.580338.3.579.2.462 Unknown [id number] 2.16.840.1.678390.3.579.2.462 Unknown [id number] 2.16.840.1.334969.3.579.2.462 Unknown [id number] 2.16.840.1.666116.3.579.2.462 Social History Date Type Detail Facility Start: 10-19-1992 End: 12-01-2024 Tobacco smoking status NHIS Smokes tobacco daily [facility] Start: 10-19-1992 End: 10-19-2022 History of tobacco use Cigarette Smoker [facility] Start: 07-05-2019 End: 03-30-2023 Cigarettes smoked current (pack per day) - Reported 0.5 [facility] Start: 07-05-2019 End: 12-01-2024 Tobacco use and exposure Smokeless tobacco non-user [facility] Start: 07-18-2021 End: 05-31-2025 Alcohol intake Ex-drinker (finding) [facility] Start: 03-26-2021 History SDOH Alcohol Comment Alcoholic - November 2020 - last drink [facility] Start: 1965 Sex Assigned At Not on file [facility] Start: 03-03-2022 End: 01-19-2024 Tobacco smoking status RIIS Unknown if ever smoked [facility] Start: 01-22-2021 Heavy [facility] Start: 01-22-2021 Marijuana [facility] Start: 02-01-2019 Alone [facility] Start: 01-22-2021 Cigarettes [facility] Start: 1965 Sex Assigned At Female [facility] Start: 03-11-2022 End: 05-27-2022 Exposure to SARS-CoV-2 (event) Not sure [facility] Start: 10-21-2022 Tobacco use and exposure User of smokeless tobacco [facility] Start: 11-11-2022 End: 04-16-2025 Tobacco smoking status NHIS Ex-smoker [facility] Work Phone: Start: 10-19-1992 End: 10-19-2022 History of tobacco use Current smoker [facility] Work Phone: Start: 03-30-2023 End: 04-15-2023 Tobacco use panel [facility] Start: 08-29-2012 Adult Depression Screening Assessment 4 [facility] Start: 12-04-2024 End: 07-10-2025 Tobacco smoking status RIIS Current Heavy tobacco smoker [facility] Start: 12-04-2024 End: 01-01-2025 Sex Female (finding) [facility] Start: 12-24-2024 End: 02-26-2025 Tobacco smoking status NHIS Current some day smoker [facility] Has the electric, [place], oil, or water company threatened to shut off services in your home in past 12Mo No [facility] (I/We) worried tara er (my/our) food would run out before (I/we) got money to buy more. Never true [facility] Start: 05-10-2025 Tobacco smoking stat us RIIS Current Light tobacco smoker [facility] Medical Equipment Procedure Code Equipment Code Equipment Origin al Text Equipment Identifier Dates Total cholecystectomy with exploration of common bile duct [id number] FDA Start: 06-14-2021 ERCP (endoscopic retrograde cholangiopancreatograp hy) ([id number]) [id number] FDA Start: 07-06-2025 Stent Zimmon 7fr Duodenal Pigtail Curve Purple Polyethylene 11cm Pancreatic - [id number] [facility] Start: 03-10-2025 Goals Date Patient Goal Desired Activity /State Functional Status Date Assessment Result Facility 04-19-2025 Functional status Ambulates;Up ad denise [facility] Work Phone: 04-19-2025 Functional status None [facility] Work Phone: 03-23-2025 Are you deaf, or do you have serious difficulty hearing No 03/23/2025 5:10 PM Kerri Hardin RN No [facility] 03-23-2025 Are you blind, or do you have serious difficulty seeing, even when wearing glasses No 03/23/2025 5:10 PM Kerri Hardin RN No [facility] 03-23-2025 Do you have serious difficulty walking or climbing stairs No 03/23/2025 5:10 PM Kerri Hardin RN No [facility] 03-23-2025 Do you have difficul ty dressing or bathing No 03/23/2025 5:10 PM Kerri Hardin RN No [facility] 03-23-2025 Because of a physica l, mental, or emotional condition, do you have difficulty doing errands alone such as visiting a physician's office or shopping No 03/23/2025 5:10 PM Kerri Hardin RN No [facility] 03-15-2025 Functional status Bedrest [facility] Work Phone: 12-12-2024 Functional status Ambulates;Bath room Privilege [facility] Work Phone: 12-08-2024 Functional status Bedrest [facility] Work Phone: 01-05-2024 Functional status Ambulates [facility] Work Phone: 11-07-2022 Functional status Ambulates [facility] Work Phone: 02-02-2015 Are you deaf, or do you have serious difficulty hearing No 02/02/2015 9:44 AM Alondra Mackenzie RN No [facility] 02-02-2015 Are you blind, or do you have serious difficulty seeing, even when wearing glasses No 02/02/2015 9:44 AM Alondra Mackenzie RN No [facility] 02-02-2015 Do you have serious difficulty walking or climbing stairs No 02/02/2015 9:44 AM Alondra Mackenzie RN No [facility] 02-02-2015 Do you have difficul ty dressing or bathing No 02/02/2015 9:44 AM Alondra Mackenzie RN No [facility] 02-02-2015 Because of a physica l, mental, or emotional condition, do you have difficulty doing errands alone such as visiting a physician's office or shopping No 02/02/2015 9:44 AM Alondra Mackenzie RN No [facility] Functional observable [facility] Mental Status Date Assessment Result Facility 07-06-2025 Cognitive function Light Pain [facility] Work Phone: 07-06-2025 Cognitive function Person [facility] Work Phone: 04-19-2025 Cognitive function Voice/Name [facility] Work Phone: 03-23-2025 Because of a physica l, mental, or emotional condition, do you have serious difficulty concentrating, remembering, or making decisions No 03/23/2025 5:10 PM EDT Kerri Aaron RN [facility] 03-15-2025 Cognitive function Unable to Comprehend [facility] Work Phone: 03-15-2025 Cognitive function Voice/Name [facility] Work Phone: 12-12-2024 Cognitive function Voice/Name [facility] Work Phone: 12-11-2024 Cognitive function Appropriate;Cooperativ e [facility] Work Phone: 12-08-2024 Cognitive function Voice/Name [facility] Work Phone: 01-19-2024 Cognitive function Level Of Cons ciousness Awake;Alert;Appropriate [facility] Work Phone: 01-05-2024 Cognitive function Voice/Name [facility] Work Phone: 06-02-2023 Cognitive function Level Of Cons ciousness Awake;Alert;Appropriate;Fol lows Commands [facility] Work Phone: 11-07-2022 Cognitive function Voice/Name [facility] Work Phone: 10-24-2022 Cognitive functi [facility] [id number] [facility] 02-02-2015 Because of a physica l, mental, or emotional condition, do you have serious difficulty concentrating, remembering, or making decisions No 02/02/2015 9:44 AM EDT Alondra Otto RN No [facility] Clinical Notes 01-10-2021 to 07-06-2025 Note Date & Type Note Facility 07-06-2025 Procedure note [facility] 07-06-2025 Procedure note [facility] 07-06-2025 Radiology Diagnostic study note [facility] 07-06-2025 Radiology Diagnostic study note [facility] 07-06-2025 History and physi anay note Note Date/Time July 06, 2025 10:[address] [place] [address] Medical Records Department [address] [place] [address] History & Physical Exam 07/06/25 1036 MR#: [id number] Acct: [id number] Name: GRACIE BANUELOS Rep #:[id number] : 1965 60 From: Marshal Segura DO PCP: Dr. Misbah Elkins MD Status:REG S DC Location: [place] [address] HPI - General General Date of Admission: 07/06/25 Date of Service: 07/06/25 Chief Complaint: Chronic pancreatitis HPI Narrative GRACIE BANUELOS, is a 60 F who presents [Chief Complaint: chornic pancreatits [facility] admission 12.04.24-12.12.24 due to acute on chronic hypoxic respiratory failure due to COPD exacerbation. Pt with hx of chronic pancreatitis s/p pancreatic block. GI consulted due to dysphagia. underwent EGD EGD 12.12.24; - {blood in the back of the mouth}. - Benign-appearing esophageal stenosis. Dilated. - Normal stomach. - No gross lesions in the first portion of the duodenum. - No specimens collected. OV 12.16.24; Pt has had no further issues with swallowing. She tells me she choked on eggs in the hospital. Prior to this she has had a few other episodes like this. SHe has not smoked since being home. She is in a lot of pain due her chronic pancreatitis. She has an appointment with pain management in January at the [facility] ERCP at [facility] 03.10.25 major papilla appeared normal. A pancreatic duct stricture was found, and irregularity was found in the entire opacified area of the pancreatic duct and main pancreatic duct. Pancreatic stones were found. Partial removal was accomplished. A pancreatic sphincterotomy was performed. The ventral pancreatic duct was swept. The main pancreatic duct was successfully dilated. 1 plastic pancreatic stent was placed into the ventral pancreatic duct. Recommendation for repeat ERCP in 4 months to remove stent. [facility] admission -03.16.25 With epigastric pain. Hx of chronic pancreatitis from alcohol abuse. Pt seen by GI specialist at [facility] during recent admissions Underwent endoscopy with pancreatitis stent placement. Now presenting with worsening epigastric pain. Adept to transfer to but beds unavailable. Pt intubated 03.15.25 due to respiratory failure [facility] admission 04.16.[address] showing acute on chronic pancreatitis. Admitted for pain Control OV 04.26.25 patient here today for hospital follow-up after 2 instances of acute on chronic pancreatitis. Patient first presented to [facility] ED on March 13, 2025 2 days after ERCP with pancreatic stent placement at the [facility]. Patient presented with epigastric pain she was admitted for management of acute pancreatitis. Patient had another episode of acute on chronic pancreatitis April 16, 2025 and was admitted for management. Patient doing well today. Her pain is controlled with the tramadol alternating with Tylenol. She prefers to avoid opiates as these constipate her. She has had some looser stools since being home from the hospital. She feels this was related to gabapentin so she discontinued it. Orders Calprotectin, Stool Today K85.90 - Acute pancreatitis without necrosis or infection, unspecified, K86.0 - Alcohol-induced chronic pancreatitis, K86.1 - Other chronic pancreatitis, R19.5 - Other fecal abnormalities CDIFF (PCR) Today K85.90 - Acute pancreatitis without necrosis or infection, unspecified, K86.0 - Alcohol-induced chronic pancreatitis, K86.1 - Other chronic pancreatitis, R19.5 - Other fecal abnormalities Pancreatic Elastase, Fecal Today K85.90 - Acute pancreatitis without necrosis or infection, unspecified, K86.0 - Alcohol-induced chronic pancreatitis, K86.1 - Other chronic pancreatitis, R19.5 - Other fecal abnormalities ENTERIC PATHOGEN PANEL STOOL Today K58.9 - Irritable bowel syndrome, unspecified, K85.90 - Acute pancreatitis without necrosis or infection, unspecified, K86.0 - Alcohol-induced chronic pancreatitis, K86.1 - Other chronic pancreatitis, R19.5 - Other fecal abnormalities Giardia Lamblia, Stool EIA Today K85.90 - Acute pancreatitis without necrosis or infection, unspecified, K86.0 - Alcohol-induced chronic pancreatitis, K86.1 - Other chronic pancreatitis, R19.5 - Other fecal abnormalities Ova and Parasites 8623 Today K58.9 - Irritable bowel syndrome, unspecified, K85.90 - Acute pancreatitis without necrosis or infection, unspecified, K86.0 - Alcohol-induced chronic pancreatitis, K86.1 - Other chronic pancreatitis, R19.5 - Other fecal abnormalities Lipase Today K86.0 - Alcohol-induced chronic pancreatitis, R19.5 - Other fecal abnormalities Abdomen Single View Today Z98.890 - Other specified postprocedural states ] [facility] Medical History Wears glasses Wears dentures Dietary restriction Smoker BiPAP (biphasic positive airway pressure) dependence Sleep apnea History of echocardiogram Uses walker Encounter for replacement of pancreatic stent Stenosis [...] (Abilify) 5 mg PO DAILY mood 01/22/21 07/06/25 07:30 History mirtazapine 45 mg tablet 45 mg PO QHS sleep 01/16/22 03/12/25 21:00 History 45 mg metoprolol tartrate 25 mg tablet 25 mg PO BID 30 days #60 tabs 01/05/24 07/05/25 Rx lisinopril 10 mg tablet 10 mg PO QDAY hypertension 0 01/26/24 07/06/25 07:30 History albuterol sulfate 90 mcg/actuation 2 puff inhalation Q 4H PRN 05/11/24 03/13/25 09:00 Rx aerosol inhaler (Ventolin HFA) shortness of breath or wheezing 2 puff #18 grams nicotine 14 mg/24 hr daily 1 patch transdermal ONCE #2 8 ea 12/14/24 Unknown Rx transdermal patch ondansetron 4 mg disintegrating 4 mg PO Q6 PRN nausea/ vomiting 12/23/24 Unknown History tablet Shower chair #1 ea 12/30/24 Unknown Rx ipratropium 0.5 mg-albuterol 3 mg 3 ml inhalation Q4H shortness of 01/04/25 03/13/25 09:00 Rx (2.5 mg base)/3 mL nebulization breath or wheezing #36 0 mL 3 mL soln albuterol sulfate 2.5 mg/3 mL 2.5 mg continuous nebuli zation PRN 03/13/25 03/13/25 09:00 History (0.083 %) solution for nebulization COPD 2.5 mg amlodipine 5 mg tablet 5 mg PO DAILY hypertension 0 03/13/25 07/06/25 07:30 History pantoprazole 40 mg tablet,delayed 40 mg PO DAILY acid reflux 03/13/25 07/06/25 07:30 History release simvastatin 20 mg tablet 20 mg PO QHS high cholestero l 03/13/25 03/12/25 21:00 History 20 mg budesonide 160 mcg-glycopyr 9 2 inh inhalation BID #10 .7 grams 04/10/25 Unknown Rx mcg-formot 4.8 mcg/actuation HFA inhaler (Breztri Aerosphere) hydroxyzine pamoate 25 mg capsule 25 mg PO QDAY PRN an xiety 04/10/25 07/06/25 07:30 History tramadol 50 mg tablet 50 mg PO Q6 PRN pain 5 Unknown History OXYGEN - Supplemental ([facility] 5 l intranasal CONT 5 Unknown History INFORMATIONAL USE ONLY) Allergy/AdvReac Type Severity Reaction Status Date / Time clindamycin Allergy Intermediate Hives Verified 07/06/25 09:43 Penicillins Allergy Hives Verified 07/06/25 09:43 sulfamethoxazole (From Allergy Other Verified 07/06/25 09:43 Bactrim) trimethoprim (From Bactrim) Allergy Other Verified 07/06/25 09:43 hydrocodone (From [place]) AdvReac Itching Verified 07/06/25 09:43 Family History Mother Diabetes Hypertension Heart disease High cholesterol Arthritis Thyroid disorder Brother Hypertension Sister Cancer cervical Thyroid disorder Father Kidney disease Daughter Thyroid disorder Surgical History History of tubal ligation History of colonoscopy History of appendectomy Social History household members: family Smoking Status: Light Smoker (<10/day) Tobacco: How many years used: 30 second hand exposure: Yes alcohol intake: former details: Sober since 2020. substance use type: does not use caffeine: Yes ROS Constitutional Constitutional: Denies fatigue, fever(s), poor appetite, weight gain or weight loss Gastrointestinal Gastrointestinal: Denies belching, bloating, change in bowel habits, change in stool character, chewing difficulty, coffee ground emesis, constipation, cramping, diarrhea, dyspepsia, dysphagia, early satiety, excessive flatus, fecalincontinence, heartburn, hematemesis, hematochezia, hemorrhoids, loose stools, melena, nausea, odynophagia, rectal bleeding, tenesmus, vomiting or weight changes Vital Signs Vital Signs Vital Signs: 07/06/25 09:47 07/06/25 09:47 Temperature 97.7 F L Temperature Source Temporal Pulse Rate 74 Respiratory Rate 17 Respiratory Pattern Normal Blood Pressure 137/89 H Blood Pressure Mean 105 Blood Pressure Source Monitor Blood Pressure Position Semi-Fowlers Blood Pressure Location Left Arm Pulse Ox 100 Oxygen Delivery Method Nasal Cannula Oxygen Flow Rate (L/min) 5 Weight Weight: 133 lb 6.075 oz Body Mass Index (BMI) 23.6 Physical Exam Const alert, oriented x3, no apparent distress and healthy appearing General Appearance: cooperative GI normal to inspection, nondistended, normoactive bowel sounds, soft to palpation,non-tender and non-distended Percussion: normal to percussion Rectal Exam: deferred Assessment & Plan Assessment/Plan (1) History of insertion of pancreatic stent: (2) Alcohol abuse: (3) Chronic pancreatitis: QUALIFIERS: Pancreatitis type: alcohol induced Qualified Code(s):K86.0 - Alcohol-induced chronic pancreatitis PLAN: Assessment and Plan Assessment and Plan (1) Chronic pancreatitis: Status: Chronic Qualifiers: Pancreatitis type: alcohol induced Qualified Code(s): K86.0 - Alcohol-induced chronic pancreatitis Plan: Gracie is a 59-year-old female patient with past medical history of alcohol abuse, tobacco abuse, COPD and chronic pancreatitis here today for hospital follow-up. Over the past 2 months patient has had 2 admissions to [facility] for acute on chronic pancreatitis. Patient underwent ERCP with pancreatic stent placement and stone removal in February [address] [facility]. Following this procedure she presented to [facility] EDwith an elevated lipase and was diagnosed with post ERCP acute on chronic pancreatitis. She was admitted for management and subsequently developed respiratory failure and was intubated in the ICU. Patient responded to treatment and is eventually extubated and discharged home. She again presented to [facility] ED April 16 with epigastric pain and elevated lipase. She was admitted for management of acute on chronic pancreatitis once again. Per ERCP report from Dr. Portillo at the [facility], she will need to undergo repeat ERCP in 4 months for removal of pancreatic stent. She would prefer to keep her care in [place] as traveling to [place] is difficult. She was scheduled for repeat ERCP in June 2022 5 with stent removal. I have ordered a KUB to ensure pancreatic stent is still in place. I have also ordered lipase for monitoring. Patient endorses loose stools since being in the hospital she feels this is related to her gabapentin. It did improve after discontinuation of gabapentin. Will order stool testing torule out infection inflammation or EPI. At this point pain is controlled with tramadol alternating with Tylenol, and PCP is managing these medications. She has referral to see pain management and was started I encouraged her to call to make this appointment. Encouraged smoking cessation and abstinence from alcohol. - ERCP in 3 months with pancreatic stent removal - KUB - Repeat lipase -Stool testing for infection inflammation and EPI -see pain management (2) Loose stools: Status: Acute (3) History of insertion of pancreatic stent: Status: Acute Orders: 07/06/25 1038 <Electronically signed by Marshal Segura DO> Cosigner Signature (if applicable): CC: Dr. Misbah Elkins MD; Marshal Segura DO~ Signed [facility] Work Phone: 1([phone]) 802-480010-09-2025 Consult note Author Terence Prater [facility] Note Date/Time July 06, 2025 9: 37am [facility] Medical Records Department [address] [place] [address] Pre-Anesthesia Evaluation 07/06/25 0935 MR#: [id number] Acct: [id number] Name: GRACIE BANUELOS Rep #:[id number] : 1965 60 From: Terence Prater MD PCP: Dr. Misbah Elkins MD Status:REG S DC Y Race: C Location: [place] [address]- ASA Classification* ASA Classification ASA Classification: 3 [...] risk assessments. Anesthesia Type Anesthesia Type: MAC (GA bkup) Anesthesia Focused Assessment* Airway Assessment Mouth opens: >3 cm Mallampati Score: II Labs Anesthesia Preop lab: CBC WBC, (4.4-11.0) 16.2 K/mm3 H 05/10/25, 21:24 RBC, (4.2-5.4) 4.27 M/mm3 05/10/25, 21:24 Hgb, (12.0-15.0) 11.4 g/dL L 05/10/25, :24 Hct, (37-47) 37.0 % 05/10/25, :24 Plt Count, (150-450) 305 K/mm3 05/10/25, 21:24 CHEMISTRY Potassium, (3.3-5.1) 4.4 mmol/L 05/10/25, 20:45 Sodium, (133-145) 138 mmol/L 05/10/25, 20:45 Magnesium, (1.5-2.2) 1.5 mg/dL 04/15/25, 23:25 Phosphorus, (2.7-4.5) 4.4 mg/dL 04/16/25, 05:30 BUN, (4-19) 4 mg/dL 05/10/25, 20:45 Creatinine, (0.70-1.20) 0.67 mg/dL L 05/10/25, 20:45 Glucose, (70-99) 114 mg/dL H 05/10/25, 20:45 POC Glucose, (70-110) 141 mg/dL H 04/19/19, 23:12 TSH, (0.300-4.200) 1.340 uIU/mL 04/16/25, 05:30 COAG PT, (11.7-14.9) 14.5 SECONDS 01/02/24, 19:33 Pre-Assessment Diagnosis/Proposed Procedure Planned Operative Procedure(s): ERCP rem Anesthesia History Anesthesia History - custom seamstress: Anesthesia History - custom seamstress Hx Hospitalization Yes: 3X, 5-25 ON VENTILATOR 07/04/25 09:29 Any Problems With Anesthesia No 07/04/25 09:29 Cholinesterase deficiency No 07/04/25 09:29 You/Your Family Experience No 07/04/25 09:29 fever (hyperthermia) with Relationship Recent Exposure to Contagious No 06/12/21 02:55 Disease Does patient have nerve No 07/04/25 09:29 stimulator Patient instructed to have device shut off --Does patient have Pacemaker or ICD? When Was Last Pacemaker Check QUESTION #4 FULL TEXT: You/Your Family Experience fever (hyperthermia) with Anesthesia Last Oral Intake Last Oral intake: Last Oral Intake NPO since Meds taken in AM with sips of water? Meds patient instructed to take am of surgery PONV PONV - custom seamstress: PONV - custom seamstress Female Yes 07/04/25 09:29 HX of Motion Sickness No 07/04/25 09:29 HX of N/V After Surgery No 07/04/25 09:29 Non-Smoker No 07/04/25 09:29 Duration of Surgery greater No 07/04/25 09:29 than 60 minutes Number of Risk Factors 1 07/04/25 09:29 PONV Score Low Risk 07/04/25 09:29 Height & Weight Height & Weight: Anesthesia: Height & Weight Height 5 ft 3 in 04/17/25 14:06 Respiratory Assessment Respiratory Assessment - custom seamstress: Respiratory Tract Infection Hx - custom seamstress Hx Respiratory Tract Infection No 07/04/25 09:29 STOP Sleep Apnea STOP Sleep Apnea - custom seamstress: STOP Sleep Apnea - custom seamstress Hx Hypertension Yes 07/04/25 09:29 Hx Sleep Apnea Yes 07/04/25 09:29 CPAP No 07/04/25 09:29 BIPAP Yes 07/04/25 09:29 Do you snore loudly (louder than talking or can be heard Do you often feel tired/ fatigued/ sleepy during daytime? Has anyone observed you stop breathing during sleep? STOP Results Positive 07/04/25 09:29 QUESTION #5 FULL TEXT : Do you snore loudly (louder than talking or can be heard through closed doors)? Tobacco Use History Tobacco Use History - custom seamstress: Tobacco Use History - custom seamstress Tobacco Use Cigarettes 01/22/21 20:43 Smoking Status Light Smoker (<10/day) 07/04/25 09:29 Hx Tobacco Use Yes 07/04/25 09:29 Years Smoking 50 07/04/25 09:29 Packs Smoked per Day 1 07/04/25 09:29 Smoking Cessation Date was within the last 15 years Hx Smoking Cessation Date Hx Smoking Cessation No 07/04/25 09:29 Counseling Hematologic Medial History Hematologic Hx - custom seamstress: 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 Hx of Blood Transfusion No 07/04/25 09:29 Hx of Transfusion in last 3 No 07/04/25 09:29 Months Date of Last Transfusion (if within last 3 months) Ever experience any problems No 07/04/25 09:29 with transfusion(s)? Specify any problems Hx of Preganancy in last 3 No 07/04/25 09:29 Months Nurse Filling Out Transfusion JZOLLINGE 07/04/25 09:29 & Questions: Date: 07/04/25 07/04/25 09:29 Time: 09:31 07/04/25 09:29 Patient unable to answer at this time (ie. confused, unrespo /Reproduction History /Reproductive History - custom seamstress: /Reproductive Hx- custom seamstress Hx Now No 07/04/25 09:29 Gestational Age (in weeks): EDC: Hx Hx Para Hx Section SAB No 07/04/25 09:29 Active Medications Active Medications: Current Medications Generic Name Dose Route Start Last Admin Trade Name Freq PRN Reason Stop Dose Admin Lactated Ringer's 1,000 mls @ 15 mls/hr 07/06/25 09:30 IV .Q48H DACIA PFSH Medical History Wears glasses Wears dentures Dietary restriction Smoker BiPAP (biphasic positive airway pressure) dependence Sleep apnea History of echocardiogram Uses walker Encounter for replacement of pancreatic stent Stenosis [...] 8 ea 12/14/24 Unknown Rx transdermal patch ondansetron 4 mg disintegrating 4 mg PO Q6 PRN nausea/ vomiting 12/23/24 Unknown History tablet Shower chair #1 ea 12/30/24 Unknown Rx ipratropium 0.5 mg-albuterol 3 mg 3 ml inhalation Q4H shortness of 01/04/25 03/13/25 09:00 Rx (2.5 mg base)/3 mL nebulization breath or wheezing #36 0 mL 3 mL soln albuterol sulfate 2.5 mg/3 mL 2.5 mg [...] PO Q6 PRN pain 5 Unknown History OXYGEN - Supplemental ([facility] 5 l intranasal CONT 5 Unknown History INFORMATIONAL USE ONLY) Allergy/AdvReac Type Severity Reaction Status Date / Time clindamycin Allergy Intermediate Hives Verified 07/04/25 09:19 Penicillins Allergy Hives Verified 07/04/25 09:19 sulfamethoxazole (From Allergy Other Verified 07/04/25 09:19 Bactrim) trimethoprim (From Bactrim) Allergy Other Verified 07/04/25 09:19 hydrocodone (From [place]) AdvReac Itching Verified 07/04/25 09:19 Family History Mother Diabetes Hypertension Heart disease High cholesterol Arthritis Thyroid disorder Brother Hypertension Sister Cancer cervical Thyroid disorder Father Kidney disease Daughter Thyroid disorder Surgical History History of tubal ligation History of colonoscopy History of appendectomy Social History household members: family Smoking Status: Light Smoker (<10/day) Tobacco: How many years used: 30 second hand exposure: Yes alcohol intake: former details: Sober since 2020. substance use type: does not use caffeine: Yes Review of Systems (Anesthesia) ROS Narrative System reviewed and no additional complaints, except as documented. 07/06/25936 <Electronically signed by Terence Prater MD > Date _ Terence Prater MD Cosigner Signature: Date CC: ~ Signed [facility] Work Phone: 1(483) 754-863610-09-[address] [facility]09-17-2025 Telephone encounter Note* Telephone Encounter - Soila Easton APRN.CNP - 06/14/2025 10:26 AM EDT PDMP website checked and validated. All prescriptions have been APPROPRIATELY filled. No suspiciousactivity was identified. 06/14/2025 by Soila Easton APRN.CNP [facility]09-17-2025 Miscellaneous Notes* Telephone Encounter - Soila Easton APRN.CNP - 06/14/2025 10:[address] [facility]. All prescriptions have been APPROPRIATELY filled. No suspiciousactivity was identified. 06/14/2025 by Soila Easton APRN.CNP * Telephone Encounter - Eva aMrtines RN - 06/13/2025 10:37 AM EDT Patient calling about this request. Patient also asking for a call back if medication is approved. Eva Martines RN * Telephone Encounter - Mihaela Cheng RN - 06/12/2025 12:55 PM EDT Contacted patient. 1) Pt requesting a refill of her tramadol, if provider agreeable. Pt has chronic pancreatitis and does not see her Pain Mgmt provider until 06/19. Pended. 2) Requesting refill of Zofran. Pended. Please call patient back with an update. The patient has been identified by name and date of : Yes Caregiver verified no other encounters exist for this prescription request: Yes Caregiver confirmed with patient/requestor that no other refills are due, in the near future, with this provider at this time: Yes The last office visit in the department: Visit date not found Does the patient have a future office visit with this provider/department: Yes Visit date not found Requested Prescriptions Pending Prescriptions Disp Refills traMADol (ULTRAM) 50 mg tablet 28 tablet 0 Sig: Take 1 tablet by mouth every 6 hours as needed for up to 7 days. ondansetron orally disintegrating (ZOFRAN ODT) 4 mg disintegrating tablet 30 tablet Sig: Take 1 tablet by mouth every 6 hours as needed for nausea/vomiting. Mihaela Cheng RN * Telephone Encounter - Jordana Zayas - 06/12/2025 12:38 PM EDT Gracie is calling Soila aEston APRN.CNP today to request a medication for patient pancreas? Patient asking for Tramadol? This medication is not on current medication list. Patient states she will see pain management at [facility] on 06/19/2025 Please call patient to discuss the need for this Tramadol Patient has been identified by name and birthdate. Duration of symptoms: ongoing Person calling: self Call patient at: on cell [phone] (home) [phone] (cell) Was an appointment scheduled: Urmila Estes [facility] Telephone encounter Note * Telephone Encounter - Eva Martines RN - 06/13/2025 10:37 AM EDT Patient calling about this request. Patient also asking for a call back if medication is approved. Eva Martines RN [facility]09-15-[facility] Telephone encounter Note* Telephone Encounter - Mihaela Cheng RN - 06/12/2025 12:55 PM EDT Contacted patient. 1) Pt requesting a refill of her tramadol, if provider agreeable. Pt has chronic pancreatitis and does not see her Pain Mgmt provider until 06/19. Pended. 2) Requesting refill of Zofran. Pended. Please call patient back with an update. The patient has been identified by name and date of : Yes Caregiver verified no other encounters exist for this prescription request: Yes Caregiver confirmed with patient/requestor that no other refills are due, in the near future, with this provider at this time: Yes The last office visit in the department: Visit date not found Does the patient have a future office visit with this provider/department: Yes Visit date not found Requested Prescriptions Pending Prescriptions Disp Refills traMADol (ULTRAM) 50 mg tablet 28 tablet 0 Sig: Take 1 tablet by mouth every 6 hours as needed for up to 7 days. ondansetron orally disintegrating (ZOFRAN ODT) 4 mg disintegrating tablet 30 tablet Sig: Take 1 tablet by mouth every 6 hours as needed for nausea/vomiting. Mihaela Cheng RN [facility]09-15-[facility] Telephone encounter Note* Telephone Encounter - Jordana Zayas - 06/12/2025 12:38 PM EDT Gracie is calling Soila Easton APRN.CNP today to request a medication for patient pancreas? Patient asking for Tramadol? This medication is not on current medication list. Patient states she will see pain management at [facility] on 06/19/2025 Please call patient to discuss the need for this Tramadol Patient has been identified by name and birthdate. Duration of symptoms: ongoing Person calling: self Call patient at: on cell [phone] (home) [phone] (cell) Was an appointment scheduled: No Jordana Estes [facility]09-03-[facility] Instructions* Patient Instructions* Soila Easton APRN.CNP - 05/31/2025 11:04 AM EDT - Call Dr. Basali s pain management office to let them know Celebrex has not relieved your pain andto discuss the next treatment steps. - Continue taking Tylenol along with Celebrex as needed. - Arrange for your landlord to change the air conditioner filter to reduce allergens in your home. - Watch for any increase in shortness of breath, wheezing, coughing, or changes in your sputum color, and report these promptly. - Continue your breathing treatments 2-3 times daily and reorder your breathing medication suppliesif needed. - Keep your oxygen at 5 L/min when walking outside and at 3 L/min indoors. - Eat small, frequent meals--focus on high-protein choices such as chicken, fish, eggs, hummus, andbroth-based soups; avoid large meals, cheese, and milk. - Follow up in June with Dr. Segura (RICARDO Tavarez) for removal of your pancreatic stent. documented in [facility] encounter[facility]25 NoteHNO ID: [id number] Author: SOILA EASTON APRN.LEGAL EXECUTIVE ASSISTANT Service: ? Author Type: Nurse Practitioner Type: Progress Notes Filed: 05/31/2025 13:42 Note Text: CC: Patient presents with: Recheck: 1 month follow up HPI Gracie Banuelos is a 60 year old female who presents today for follow up on chronic pancreatitis, COPD, and pain., Recording using [employer] software for draft documentation of the visit was discussed with the patient/authorized event representative; all questions welcomed and answered. Patient/authorized event representative agreed to proceed Chronic Pancreatitis: - Gracie Banuelos was hospitalized in March for pancreatitis; stent placed, still in situ. - Followed by Dr. Segura at [facility]; stent removal planned for June. - Seen by Dr. Segura's PADaysi, with next appointment in June. - Hospitalized four times since March for double pneumonia, bronchitis, and pancreatitis. - Gracie denies emesis, fevers, or chills. - Experiencing significant chronic upper abdominal pain. - Pain management by Dr. Harmon; currently taking Celebrex for two weeks with no relief. - Previously on tramadol and oxycodone, which provided pain relief. - Unable to sleep due to pain; taking Tylenol with Celebrex. - Gabapentin discontinued due to diarrhea. - Difficulty eating due to pain; consuming two meals per day. - Avoids milk and cheese due to digestive issues. COPD: - At baseline; requires 5L O2, reduced to 3L indoors and if at rest. - Uses air conditioning at home; landlord responsible for changing filters. - Coughing up white sputum; performing breathing treatments 2-3 times daily. - Quit smoking for a month but resumed due to stress. - Ventilated for two days in January due to fluid overload post-surgery. - wheezing and dyspnea at baseline Ear Discomfort: - Gracie noticed hearing loss and increased volume in speech over the past few weeks. - Suspects excessive cerumen accumulation. - Denies sinus pressure, headaches, fever, chills, or ear drainage. REVIEW OF SYSTEMS General: no fevers, no chills, no night sweats, no recurrent infections, no change in appetite, no change in energy, and no significant changes in weight Cardiovascular: no chest pain, no chest pressure, no palpitations, and no swelling PAST MEDICAL HISTORY Diagnosis Date Acute exacerbation of chronic obstructive airways disease (HCC) Alcohol dependence in remission ([facility]) 07/10/2015 Alcohol use disorder 08/27/2017 Alcohol-induced pancreatitis (HCC) Alcoholic hepatitis (HCC) 05/18/2012 Alcoholic liver disease (HCC) 11/16/2013 Anemia Anxiety with depression Arthritis Asthma (HCC) Chronic hypoxemic respiratory failure (HCC) COPD (chronic obstructive pulmonary disease) ([facility]) 05/25/2012 DDD (degenerative disc disease), [...] Stage 3 severe COPD by GOLD classification ([facility]) 2018 Tobacco use greater than [...] [Sulfamethoxazole-Trimethoprim], Hydrocodone, Penicillins, and Valium [Diazepam] MEDICATIONS celecoxib (CELEBREX) 200 mg capsule Take 200 mg by mouth two times a day. amLODIPine (NORVASC) 5 mg tablet Take 1 tablet by mouth once daily. albuterol HFA (VENTOLIN HFA) 90 mcg/actuation inhaler Inhale 2 puffs by mouth into the lungs four times a day as needed. hydrOXYzine pamoate (VISTARIL) 25 mg capsule Take 1 capsule by mouth daily at bedtime. lisinopril (ZESTRIL) 10 mg tablet Take 1 tablet by mouth once daily. gabapentin (NEURONTIN) 300 mg capsule Take 1 capsule by mouth three times a day for 30 days. simvastatin (ZOCOR) 20 mg tablet Take 1 tablet by mouth daily at bedt (more content not included)...[facility]09-03-2025 History of Present illness Narrative* Solia Easton APRN.LEGAL EXECUTIVE ASSISTANT - 05/31/2025 10:49 AM EDT CC: Patient presents with: Recheck: 1 month follow up HPI Gracie Banuelos is a 60 year old female who presents today for follow up on chronic pancreatitis, COPD, and pain., Recording using [employer] software for draft documentation of the visit was discussed with the patient/authorized event representative; all questions welcomed and answered. Patient/authorized event representative agreed to proceed Chronic Pancreatitis: - Gracie Banuelos was hospitalized in March for pancreatitis; stent placed, still in situ. - Followed by Dr. Segura at [facility]; stent removal planned for June. - Seen by Dr. Segura's PADaysi, with next appointment in June. - Hospitalized four times since March for double pneumonia, bronchitis, and pancreatitis. - Gracie denies emesis, fevers, or chills. - Experiencing significant chronic upper abdominal pain. - Pain management by Dr. Harmon; currently taking Celebrex for two weeks with no relief. - Previously on tramadol and oxycodone, which provided pain relief. - Unable to sleep due to pain; taking Tylenol with Celebrex. - Gabapentin discontinued due to diarrhea. - Difficulty eating due to pain; consuming two meals per day. - Avoids milk and cheese due to digestive issues. COPD: - At baseline; requires 5L O2, reduced to 3L indoors and if at rest. - Uses air conditioning at home; landlord responsible for changing filters. - Coughing up white sputum; performing breathing treatments 2-3 times daily. - Quit smoking for a month but resumed due to stress. - Ventilated for two days in January due to fluid overload post-surgery. - wheezing and dyspnea at baseline Ear Discomfort: - Gracie noticed hearing loss and increased volume in speech over the past few weeks. - Suspects excessive cerumen accumulation. - Denies sinus pressure, headaches, fever, chills, or ear drainage. REVIEW OF SYSTEMS General: no fevers, no chills, no night sweats, no recurrent infections, no change in appetite, no change in energy, and no significant changes in weight Cardiovascular: no chest pain, no chest pressure, [...] Stage 3 severe COPD by GOLD classification ([facility]) 2018 Tobacco use greater than [...] [Sulfamethoxazole-Trimethoprim], Hydrocodone, Penicillins, and Valium [Diazepam] MEDICATIONS celecoxib (CELEBREX) 200 mg capsule Take 200 mg by mouth two times a day. amLODIPine (NORVASC) 5 mg tablet Take 1 tablet by mouth once daily. albuterol HFA (VENTOLIN HFA) 90 mcg/actuation inhaler Inhale 2 puffs by mouth into the lungs four times a day as needed. hydrOXYzine pamoate (VISTARIL) 25 mg capsule Take 1 capsule by mouth daily at bedtime. lisinopril (ZESTRIL) 10 mg tablet Take 1 tablet by mouth once daily. gabapentin (NEURONTIN) 300 mg capsule Take 1 capsule by mouth three times a day for 30 days. simvastatin (ZOCOR) 20 mg tablet Take 1 [...] by mouth two times a day. hydrOXYzine HCl (ATARAX) 25 mg tablet Take 1 tablet by mouth three times a day as needed for itching/rash. MUCINEX D MAXIMUM STRENGTH 120-1,200 mg tab ER 12 hr Take 1 tablet by mouth as needed. (Patient nottaking: Reported on 04/10/2025) Cholecalciferol, Vitamin D3, 50 mcg (2,000 unit) cap Take 1 capsule by mouth once daily. ziprasidone (GEODON) 40 mg capsule Take 1 capsule by mouth at bedtime as needed. Blood Pressure Monitor Home blood pressure monitor cyclobenzaprine (FLEXERIL) 10 mg tablet Take 1 tablet by mouth twice daily as needed for muscle spasm. ferrous sulfate (SLOW FE) 140 mg (45 mg iron) TbER Take 1 tablet by mouth twice daily with meals. (Patient not taking: Reported on 04/10/2025) mirtazapine (REMERON) 45 [address] tablet [address] Talamantes. multivitamin tablet Take 1 tablet by mouth once daily. ARIPiprazole (ABILIFY) 5 mg tablet 5 mg once daily. OXYGEN, HOME THERAPY, 5 L/min by Nasal Cannula route as directed. Patient is on 5 L/min continuous COMPOUNDED PRESCRIPTION Pulse Oximetry COMPOUNDED PRESCRIPTION nebulizer supplies (tubing) FAMILY HISTORY Problem Relation Age of Onset Diabetes Mother Hypertension Mother Rheumatologic disease Mother other (lung cancer) Mother Lung Cancer Mother Diabetes Sister Cervical Cancer Sister X 2 Hypertension Brother Lung Cancer Brother SOCIAL HISTORY[1] PHYSICAL EXAM BP 128/80 Pulse 78 Resp 16 Wt 56.2 kg (124 lb) LMP 05/29/2010 SpO2 95% BMI 20.63 kg/m Ears: external ears normal to inspection and palpation, canals clear, Left tympanic membrane normal. , Right tympanic membrane normal Lungs: Lungs clear to auscultation. No wheezing, rhonchi, rales. Heart: RRR without murmur, gallop, or rubs. No ectopy Abdomen: Abdomen soft, non-tender. Bowel sounds normal. No masses, organomegaly Health maintenance reviewed with patient: HIV Screening Never done Shingrix Vaccine(1 of 2) Never done Cervical Cancer Screening due on 07/05/2020 Mammogram Screening due on 08/28/2021 RSV Vaccine(1 - Risk 60-74 years 1-dose series) Never done Pneumococcal Vaccine: 50+(3 of 3 - PCV20 or PCV21) due on 08/31/2023 Colorectal Cancer Screening due on 01/11/2024 Influenza Vaccine(1) due on 05/29/2025 Annual PCP Team Chronic Disease Visit due on 04/25/2026 Diabetes Screening due on 03/23/2028 Lipid Screening due on 05/24/2030 Hepatitis C Screening Completed DTaP,Tdap,Td Vaccine Discontinued DATA REVIEWED: Most recent labs Labs: - Cholesterol: Normal Assessment/Plan 1. Chronic pancreatitis, unspecified pancreatitis type (HCC) (K86.1) 2. Generalized abdominal pain (R10.84) - Chronic pancreatitis with persistent upper abdominal pain; stent remains in place, with removal planned in June by Dr. Segura's team. - Celebrex trial for pain management ineffective after 2 weeks; gabapentin previously discontinued due to diarrhea. - Advised patient to contact pain management (Dr. Harmon) to report lack of efficacy with Celebrex and discuss next steps. - Encouraged continued use of Tylenol for pain relief. - Advised small, frequent meals with adequate protein intake to support healing and minimize GI irritation. - Reviewed recent cholesterol labs, which were within normal limits. 3. Chronic obstructive pulmonary disease with acute lower respiratory infection (HCC) (J44.0) 4. Dependence on supplemental oxygen (Z99.81) - COPD at baseline; currently using 5 L O2, reduced to 3 L indoors. - Recent hospitalizations for double pneumonia and bronchitis. - Continues 2-3 breathing treatments daily; sputum remains white. - Advised patient to monitor for increased SOB, wheezing, cough, or changes in sputum. - Recommended changing air conditioner filter to reduce allergens. 5. Hearing loss of right ear, unspecified hearing loss type (H91.91) - Recent onset of right ear hearing loss, exam normal - recommend ENT consult, patient declined, states it is ok for now - Advised patient to monitor for worsening symptoms or if she would like ENT consult placed. Prescription instructions reviewed with patient as applicable. Potential red flag symptoms discussed with the patient. Reviewed appropriate action plan to take if red flag symptoms occur. Patient agreeable to treatment plan. Soila Easton APRN.LEGAL EXECUTIVE ASSISTANT [1] Social History Tobacco Use Smoking status: Every Day Current packs/day: 0.00 Average packs/day: 0.5 packs/day for 30.0 years (15.0 ttl pk-yrs) Types: Cigarettes Start date: 10/19/1992 Last attempt to quit: 10/19/2022 Years since quittin.6 Smokeless tobacco: Never Vaping Use Vaping status: Never Used Substance Use Topics Alcohol use: Not Currently Comment: Alcoholic - November 2020 - last drink Drug use: Yes Types: Marijuana Comment: rarely- last time used was Oct 2019 [facility] Telephone encounter Note * Telephone Encounter - Mike Phan RN - 05/20/2025 10:08 AM EDT Pt phoned to discuss pcp result message. Reviewed message- patient asking what stenosis is and advised it is a narrow passage way. Pt agreeable to schedule with vascular surgeon, states she has the number to call to schedule but she is going to complete her cholesterol lab first. [facility]08-23-[facility] Miscellaneous Notes* Telephone Encounter - Mike Phan RN - 05/20/2025 10:08 AM EDT Pt phoned to discuss pcp result message. Reviewed message- patient asking what stenosis is and advised it is a narrow passage way. Pt agreeable to schedule with vascular surgeon, states she has the number to call to schedule but she is going to complete her cholesterol lab first. * Telephone Encounter - Eileen Chavez MA - 05/19/2025 11:04 AM EDT Patient notified, please assist in scheduling. * Telephone Encounter - Misbah Elkins MD - 05/19/2025 10:28 AM EDT Please let patient know that we would like her to see vascular as on the left side her artery is stenosed , affecting the vertebral artery flow. Please assist patient in scheduling Regards, Misbah Elkins MD documented in this encounterMer[facility]08-[facility]25 Telephone encounter Note * Telephone Encounter - Soila Easton APRN.CNP - 05/19/2025 3:36 PM EDT I have sent tramadol as requested. Thank you Soila Easton APRN.CNP PDMP website checked and validated. All prescriptions have been APPROPRIATELY filled. No suspiciousactivity was identified. 05/19/2025 by Soila Easton APRN.CNP [facility]08-22-2025 Miscellaneous Notes* Telephone Encounter - Soila Easton APRN.CNP - 05/19/2025 3:36 PM EDT I have sent tramadol as requested. Thank you Soila Easton APRN.CNP PDMP website checked and validated. All prescriptions have been APPROPRIATELY filled. No suspiciousactivity was identified. 05/19/2025 by Soila Easton APRN.CNP * Telephone Encounter - Mike Phan RN - 05/19/2025 10:29 AM EDT Pt asking if provider is going to send a pain medication to her pharmacy? States she is having pain. Please phone pt with reply. [phone] * Telephone Encounter - Eva Martines RN - 05/18/2025 4:54 PM EDT Patient calls and states that she see pain management on 05/24/2025. Patient has appointment with Soila on 05/26/2025. Patient states that she is out of pain medications and is needing one. Eva Martines RN * Telephone Encounter - Mike Phan RN - 05/18/2025 4:43 PM EDT Pt checking on refill request and given provider's message below with verbalized understanding. Pt reports she thinks she is seeing pain mgmt at [facility] on 05/26/25. She will check and call back to let provider know. Pt reports she is scheduled with Dr. Segura in Jun. Pt thinks she is having surgery in Jun to remove the stent from her pancreas. Pt asking provider to fill one of the requested Rx's. States she doesn't care which one as long as she gets one of them. * Telephone Encounter - Soila Easton APRN.CNP - 05/18/2025 2:52 PM EDT We are unable to refill the oxy as previously stated in previous refill request. We don't think it is a good idea to be on both the tramadol and oxy together. I see she went back to the ER and received the oxy and tramadol there. Has she seen Dr. Segura as ordered by Dr. Elkins? Also, I am glad to see at the ER she was not having an acute attack of pancreatitis but they kept referring to her seeing a pain mgt specialist. Is she seeing one? Thank you Soila Easton APRN.IGOR * Telephone Encounter - Holly Herrera - 05/17/2025 10:11 AM EDT Prescription Refill Information The patient has been identified by name and date of : Yes Caregiver verified no other encounters exist for this prescription request: Yes Caregiver confirmed with patient/requestor that no other refills are due, in the near future, with this provider at this time: Yes The last office visit in the department: 04-25-25 Does the patient have a future office visit with this provider/department: Yes Disp Refills Start End oxyCODONE IR (ROXICODONE) 5 mg immediate release tablet 21 tablet 0 04/25/2025 05/02/2025 Sig: Take 1 tablet by mouth every 8 hours as needed for pain for up to 7 days. Sent to pharmacy as: oxyCODONE IR (ROXICODONE) 5 mg immediate release tablet Class: Normal traMADol (ULTRAM) 50 mg tablet 28 tablet 0 04/25/2025 05/02/2025 Sig: Take 1 tablet by mouth every 6 hours as needed for up to 7 days. Sent to pharmacy as: traMADol (ULTRAM) 50 mg tablet Patient has appointment with Dr Grijalva in pain management on 05-24-25 at 2:15. Holly eJnsen May 17, 2025 10:12 AM documented in this encounterMer[facility]08-22-2025 Telephone encounter Note * Telephone Encounter - Eileen Chavez MA - 05/19/2025 11:04 AM EDT Patient notified, please assist in scheduling. [facility]08-[facility] Telephone encounter Note* Telephone Encounter - Mike Phan RN - 05/19/2025 10:29 AM EDT Pt asking if provider is going to send a pain medication to her pharmacy? States she is having pain. Please phone pt with reply. [phone] [facility]08-22-[facility] Telephone encounter Note* Telephone Encounter - Misbah Elkins MD - 05/19/2025 10:28 AM EDT Please let patient know that we would like her to see vascular as on the left side her artery is stenosed , affecting the vertebral artery flow. Please assist patient in scheduling Regards, Misbah Elkins MD [facility]08-21-2025 Telephone encounter Note* Telephone Encounter - Eva Martines RN - 05/18/2025 4:54 PM EDT Patient calls and states that she see pain management on 05/24/2025. Patient has appointment with Soila on 05/26/2025. Patient states that she is out of pain medications and is needing one. Eva Martines RN [facility]08-21-2025 Telephone encounter Note* Telephone Encounter - Mike Phan RN - 05/18/2025 4:43 PM EDT Pt checking on refill request and given provider's message below with verbalized understanding. Pt reports she thinks she is seeing pain mgmt at [facility] on 05/26/25. She will check and call back to let provider know. Pt reports she is scheduled with Dr. Segura in Jun. Pt thinks she is having surgery in Jun to remove the stent from her pancreas. Pt asking provider to fill one of the requested Rx's. States she doesn't care which one as long as she gets one of them. [facility] Telephone encounter Note* Telephone Encounter - Soila Easton APRN.CNP - 05/18/2025 2:52 PM EDT We are unable to refill the oxy as previously stated in previous refill request. We don't think it is a good idea to be on both the tramadol and oxy together. I see she went back to the ER and received the oxy and tramadol there. Has she seen Dr. Segura as ordered by Dr. Elkins? Also, I am glad to see at the ER she was not having an acute attack of pancreatitis but they kept referring to her seeing a pain mgt specialist. Is she seeing one? Thank you Soila Easton APRN.CNP [facility] Telephone encounter Note* Telephone Encounter - Holly Herrera - 05/17/2025 10:11 AM EDT Prescription Refill Information The patient has been identified by name and date of : Yes Caregiver verified no other encounters exist for this prescription request: Yes Caregiver confirmed with patient/requestor that no other refills are due, in the near future, with this provider at this time: Yes The last office visit in the department: 04-25-25 Does the patient have a future office visit with this provider/department: Yes Disp Refills Start End oxyCODONE IR (ROXICODONE) 5 mg immediate release tablet 21 tablet 0 04/25/2025 05/02/2025 Sig: Take 1 tablet by mouth every 8 hours as needed for pain for up to 7 days. Sent to pharmacy as: oxyCODONE IR (ROXICODONE) 5 mg immediate release tablet Class: Normal traMADol (ULTRAM) 50 mg tablet 28 tablet 0 04/25/2025 05/02/2025 Sig: Take 1 tablet by mouth every 6 hours as needed for up to 7 days. Sent to pharmacy as: traMADol (ULTRAM) 50 mg tablet Patient has appointment with Dr Grijalva in pain management on 05-24-25 at 2:15. Holly Jensen May 17, 2025 10:12 AM T [facility]08-19-2025 Telephone encounter Note* Telephone Encounter - Mike Phan RN - 05/16/2025 10:33 AM EDT The patient has been identified by name and date of : Yes Caregiver verified no other encounters exist for this prescription request: Yes Caregiver confirmed with patient/requestor that no other refills are due, in the near future, with this provider at this time: Yes The last office visit in the department: 04/25/2025 Does the patient have a future office visit with this provider/department: Yes 05/26/2025 Requested Prescriptions Pending Prescriptions Disp Refills amLODIPine (NORVASC) 5 mg tablet 30 tablet 5 Sig: Take 1 tablet by mouth once daily. Mike Phan RN May 16, 2025 10:34 AM [facility]08-19-2025 Miscellaneous Notes* Telephone Encounter - Mike Phan RN - 05/16/2025 10:33 AM EDT The patient has been identified by name and date of : Yes Caregiver verified no other encounters exist for this prescription request: Yes Caregiver confirmed with patient/requestor that no other refills are due, in the near future, with this provider at this time: Yes The last office visit in the department: 04/25/2025 Does the patient have a future office visit with this provider/department: Yes 05/26/2025 Requested Prescriptions Pending Prescriptions Disp Refills amLODIPine (NORVASC) 5 mg tablet 30 tablet 5 Sig: Take 1 tablet by mouth once daily. Mike Phan RN May 16, 2025 10:34 AM documented in [facility] Radiology Diagnostic study [facility]08-12-2025 NotePatient Outreach (INTMMN) GRACIE BANUELOS ([id number]) 1965 F Date Time Provider Department 05/09/25 MISBAH ELKINS INTMMN During your visit today, we recorded the following information about you: Allergies As of Date: 05/09/2025 Noted Allergy Reaction BACTRIM (SULFAMETHOXAZOLE-TRIMETH*11/28/2022 4 - Hives HYDROCODONE 08/02/2020 9 - Itching PENICILLINS 07/07/2006 14 - Other: See Comments Comments: hives VALIUM (DIAZEPAM) 11/02/2013 14 - Other: See Comments Comments: cross reaction with alcohol addiction Date Reviewed: 04/25/2025 Reviewed by: Juan Borjas MA - Fully Assessed Visit Diagnosis:Hyperlipidemia [E78.5] Order(s):LIPID PANEL, FASTING [SQLIPB] Order #: [id number] FUTURE Prescriptions as of 05/12/2025 - albuterol HFA (VENTOLIN HFA) 90 mcg/actuation [...] supplies (tubing) Problem List As Of Date 05/09/2025 Noted Resolved TOBACCO USE DISORDER [F17.200] 06/29/2008 [...] stress female [N39.3] 11/24/2014 HPV test positive [DPQ8502] 11/24/2014 Alcohol dependence in remission (HCC) [F10.21] [...] Hypokalemia [E87.6] 03/17/2025 Tachycardia [R00.0] 03/19/2025 Encounter Status:Closed by EPIC, PRODUSER on (more content not included)... [facility]08-11-2025 Consult note Author Terence Prater [facility] Note Date/Time July 06, 2025 1: 02pm [facility] Medical Records Department [address] [place] [address] Anesthesia Postop Eval II 07/06/25 1232 MR#: [id number] Acct: [id number] Name: GRACIE BANUELOS Rep #:[id number] : 1965 60 From: Terence Prater MD PCP: Dr. Misbah Elkins MD Status:REG S DC Y Race: C Location: [place] [address] Anesthesia Postop Eval I Sum Postop Eval Completion status Anesthesia document: Postop Eval 1 completed: Yes Anesthesia Postop Eval I Summary Anesthesia Postop Eval I Summary: Anesthesia Postop Eval I: Assessment Summary Airway patent Yes 07/06/25 12:00 [email or web address] Spontaneous unlabored Yes 07/06/25 12:00 [email or web address] respirations Mental status Asleep 07/06/25 12:00 [email or web address] nausea No 07/06/25 12:00 [email or web address] Vomiting No 07/06/25 12:00 [email or web address] Anesthesia Postop Eval I: Fluid Summary Crystalloid volume administer 900 07/06/25 12:00 [email or web address] (ml) Colloids volume administered ( ml) Blood Product volume administered (ml) Total IV fluid infused 900 07/06/25 12:00 [email or web address] Anesthesia Postop Eval I: Summary Notes Anesthesia Complication No 07/06/25 12:00 [email or web address] Anesthesia Complication Comment: Post-operative progress note Anesthesia: Postop Eval II Evaluation Mental status: Awake Pain Level: 0 nausea: No Vomiting: No 07/06/25 1232 <Electronically signed by Terence Prater MD > Date _ Terence Prater MD [facility] Signature: Date CC: ~ Signed [facility] Work Phone: 1(571) 411-384007-31-2025 Radiology Diagnostic study [facility]07-30-2025 Telephone encounter Note* Telephone Encounter - Caroline Miller RN - 04/26/2025 8:23 AM EDT Called pt and she said she already picked up the Tramadol. [facility]07-30-2025 Miscellaneous Notes* Telephone Encounter - Caroline Miller RN - 04/26/2025 8:23 AM EDT Called pt and she said she already picked up the Tramadol. * Telephone Encounter - Misbah Elkins MD - 04/25/2025 7:03 PM EDT I [facility] tram[facility] Misbah Cisneros MD * Telephone Encounter - Caroline Miller RN - 04/25/2025 5:56 PM EDT Pt just in and saw Dr. Elkins [...] med tonight as she does not want togo back to the ER. documented in this [facility]Mer[facility]2025 NoteHNO ID: [id number] Author: MISBAH ELKINS MD Service: ? Author Type: Physician Type: Progress Notes Filed: 04/25/2025 22:28 Note Text: Reason for Visit Follow up HPI Gracie Banuelos is a 59-year-old female with a history of chronic pancreatitis, COPD, and anxiety, presenting for follow-up after a recent hospitalization for acute pancreatitis. Gracie was admitted to the hospital on 04/16/2025 and discharged on 04/19/2025, at [facility], following an episode of acute pancreatitis. She [...] placement and removal of multiple stones at [facility] in [place] on 03/10/2025. During her recent hospitalization, a [...] chronic pancreatitis and pancreatic stent placement at [facility] on 03/10/2025. She reports ongoing pain [...] pain management. She is also taking an qesp-lxp-arboyxt medication called Ease to manage constipation associated with opioid use. Gracie expresses concern about her blood pressure readings, which she reports are high in one arm and low in the other. She was told by her doctors that she might have a blood clot and is requesting a referral to a mental telepathist for further evaluation. She also reports dryness [...] mirtazapine (REMERON) 45 mg (more content not included)...[facility]07-29-2025 History of Present illness Narrative* Misbah Elkins MD - 04/25/2025 10:01 PM EDT Reason for Visit Follow up HPI Gracie Banuelos is a 59-year-old female with a history of chronic pancreatitis, COPD, and anxiety, presenting for follow-up after a recent hospitalization for acute pancreatitis. Garcie was admitted to the hospital on 04/16/2025 and discharged on 04/19/2025, at [facility], following an episode of acute pancreatitis. She [...] placement and removal of multiple stones at [facility] in [place] on 03/10/2025. During her recent hospitalization, a CT scan of the abdomen revealed acute and chronic pancreatitisin the pancreatic head and uncinate process, with [...] chronic pancreatitis and pancreatic stent placement at [facility] on 03/10/2025. She reports ongoing pain since the stent placement, which she describes as worse than before. She is scheduled to see Dr. Segura in gastroenterology tomorrow for further evaluation. Gracie also has a history of COPD and is on 5 liters of nasal cannula oxygen. She reports that she [facility]ub[facility] and [facility], which she attributes to fluid overload. [...] that she quit smoking 19 days ago andstopped drinking alcohol in 2020. She also has a history of hypertension, for which she is taking amlodipine and lisinopril, and hyperlipidemia, for which she is taking simvastatin. She has a historyof GERD and is taking pantoprazole. She also has osteoarthritis with chronic back pain and is taking meloxicam and tramadol as needed for pain. She reports that she was prescribed Toradol and morphine for pain during her recent hospitalization and is currently taking oxycodone 5 mg and tramadol forpain management. She is also taking an xsta-erp-lkszcjd medication called Ease to manage constipation associated with opioid use. Gracie expresses concern about her blood pressure readings, which she reports are high in one arm and low in the other. She was told by her doctors that she might have a blood clot and is requesting a referral to a mental telepathist for further evaluation. She also reports dryness in her nose, which sheattributes to her oxygen use, and requests a [...] with chronic pancreatitis changes. CT of the pancreasshowed chronic pancreatitis changes with numerous calcifications and [...] excuse any unintended typographical errors. Recording using [employer] software for draft documentation of the visit was discussed with the patient/authorized event representative; all questions welcomed and answered. Patient/authorized event representative agreed to proceed Misbah Elkins MD documented in [facility] encounterMer[facility] Telephone encounter Note * Telephone Encounter - Misbah Elkins MD - 04/25/2025 7:03 PM EDT I [facility] Regards, Misbah Elkins MD [place] [address]-29-2025 Telephone encounter Note* Telephone Encounter - Caroline Miller RN - 04/25/2025 5:56 PM EDT Pt just in and saw Dr. Elkins [...] med tonight as she does not want togo back to the ER. [facility]07-26-2025 Telephone encounter Note* Telephone Encounter - Caroline Miller RN - 04/22/2025 9:16 AM EDT DORIAN pt has a script at the pharmacy. [facility]07-26-2025 Miscellaneous Notes* Telephone Encounter - Caroline Miller RN - 04/22/2025 9:16 AM EDT DORIAN pt has a script at the pharmacy. * Telephone Encounter - Juan Borjas MA - 04/21/2025 11:44 AM EDT Unable to reach patient. Left VM to return call to office. Please read below and advise. Juan Borjas MA * Telephone Encounter - Misbah Elkins MD - 04/21/2025 11:05 AM EDT I will not be able to refill except for 10 pills. Thank you * Telephone Encounter - Juan Borjas MA - 04/21/2025 8:45 AM EDT Images from the original note were not included. Reconcile dispense list shows a fill of Oxycodone HCL 5 MG qty: 10 tablets on 04/19/25. Juan Borjas MA * Telephone Encounter - Misbah Elkins MD - 04/20/2025 4:49 PM EDT [facility] does not show that she got any oxycodoe Staff do you see anything or does [facility] not have connection to oarrrs? Regards, Misbah Elkins MD * Telephone Encounter - Kiana Christy - 04/20/2025 8:57 AM EDT Patient calling in to let office know she was just discharged from [facility]. She made an appt to see on 04/25, however she states they gave her oxycodone to help with her pain, and she only has 4left. She is wondering if she is able to get another refill. Please review and advise. Kiana Christy April 20, 2025 8:59 AM documented in this encounterMer[facility]07[facility]25 Telephone encounter Note * Telephone Encounter - Juan Borjas MA - 04/21/2025 11:44 AM EDT Unable to reach patient. Left VM to return call to office. Please read below and advise. Juan Borjas MA [facility]07-25-2025 Telephone encounter Note* Telephone Encounter - Misbah Elkins MD - 04/21/2025 11:05 AM EDT I will not be able to refill except for 10 pills. Thank you [facility]07-25-2025 Telephone encounter Note* Telephone Encounter - Juan Borjas MA - 04/21/2025 8:45 AM EDT Images from the original note were not included. Reconcile dispense list shows a fill of Oxycodone HCL 5 MG qty: 10 tablets on 04/19/25. Juan Borjas MA [facility]07-24-2025 Telephone encounter Note* Telephone Encounter - Misbah Elkins MD - 04/20/2025 4:49 PM EDT [facility] does not show that she got any oxycodoe Staff do you see anything or does [facility] not have connection to oarrrs? Regards, Misbah Elkins MD [facility]07-24-2025 Telephone encounter Note* Telephone Encounter - Kiana Christy - 04/20/2025 8:57 AM EDT Patient calling in to let office know she was just discharged from [facility]. She made an appt to see on 04/25, however she states they gave her oxycodone to help with her pain, and she only has 4left. She is wondering if she is able to get another refill. Please review and advise. Kiana Christy April 20, 2025 8:59 AM [facility]07-23-[address] [facility]07-23-2025 Consult note Author Lexy Milan [facility] Note Date/Time April 19, 2025 1:16 pm [facility] Medical Records Department [address] [place] [address] Counseling Note - Pharmacy 04/19/25 1031 MR#: [id number] Acct: [id number] Name: GRACIE BANUELOS Rep #:[id number] : 1965 59 From: Lexy Milan PCP: Dr. Misbah Elkins MD Status:ADM I N Y Location: [place] [address] Pharmacy [facility] Counseling Pharmacy Service has performed discharge medication [...] Signature (if applicable): Date CC: ~ Signed [facility] Work Phone: 1(285) 830-140107-23-2025 Discharge summary Author Sudhir Izquierdo [facility] Note Date/Time April 19, 2025 9:33 am [facility] Medical Records Department [address] [place] [address] Instructions for Home/Discharge Instructions 04/19/25 0907 MR#: [id number] Acct: [id number] Name: GRACIE BANUELOS Rep #:[id number] : 1965 59 From: Sudhir pace MD PCP: Dr. Misbah Elkisn MD Status:ADM I N Discharge Instructions DC [...] [Primary Care Provider] - Within 1 Week Marshal Segura DO [Med Staff - Active Staff] - Within 1 Month Disposition Disposition (needs filled in before D/C Order can be placed): Home, Self Care 04/19/25 5641<Electronically signed by Sudhir Izquierdo MD>Sudhir Izquierdo MD CC: Dr. Misbah Elkins MD; Dr. Jackson Monk DO; Dr. Bert Greenwood MD ~ Signed [facility] Work Phone: 1(306) 556-209207-22-2025 Progress note Author Sudhir Izquierdo [facility] Note Date/Time April 18, 2025 5:53 pm [facility] Medical Records Department [address] [place] [address] Progress Note - Hospitalist 04/18/25 1744 MR#: [id number] Acct: [id number] Name: GRACIE BANUELOS Rep #:[id number] : 1965 59 From: Sudhir pace MD PCP: Dr. Misbah Elkins MD Status:ADM I N Location: [place] [address] Subjective Subjective History of chronic pancreatitis continue [...] % (Auto) 60.1, Lymph % (Auto) 23.8, [place] % (Auto) 7.0, Eos % (Auto) 8.1 [...] mg daily per hour with clear liquid. Coleridge criteria is 2 point though LDH not [...] DVT: Lovenox Charges/Coding Visit Charges Inpatient E&M: 67915 Subs Hosp L2 04/18/25 8259 <Electronically signed by Sudhir Izquierdo MD> Cosigner Signature (if applicable): CC: ~ Signed [facility] Work Phone: 1(670) 930-698207-21-2025 Progress note Author Bert Greenwood [facility] Note Date/Time April 17, 2025 4:43 pm [facility] Medical Records Department [address] [place] [address] Progress Note - Hospitalist 04/17/25 1640 MR#: [id number] Acct: [id number] Name: GRACIE BANUELOS Rep #:[id number] : 1965 59 From: Bert Nixon PCP: Dr. Misbah Elkins MD Status:ADM I N Location: [place] [address] Reason for Visit Chief Complaint: Abdominal Pain. [...] (Auto) 69.0, Lymph % (Auto) 16.6 L, [place] % (Auto) 8.3, Eos % (Auto) 5.0, [...] respiratory failure, intubation and then transferred to [facility]. Patient is very concerned of fluid overload at this time. She complained of pain 7-8 in right lower quadrant though she is tender all over. No fever. She had a pancreatic stent in the past in [facility] by Dr. Portillo. She also had pain [...] stent on 03/11/[address] Portillo in [facility]. She was discharged on 03/15/transferred to [facility]. 1. Acute on chronic pancreatitis: CT [...] (Auto) 72.4 H, Lymph % (Auto)14.6 L, [place] % (Auto) 7.0, Eos % (Auto) 4.9, [...] Clarity Clear, Urine pH 7.0, Ur Specific [place] 1.005, Urine Protein 15 H, Urine Glucose [...] 74.2 H, Lymph % (Auto) 14.2 L, [place] % (Auto) 7.0, Eos % (Auto) 3.7, [...] (Auto) 69.0, Lymph % (Auto) 16.6 L, [place] % (Auto) 8.3, Eos % (Auto) 5.0, [...] 90 H Charges/Coding Visit Charges Inpatient E&M: 26035 Subs Hosp L2 04/17/25 1643 <Electronically signed by Bert Greenwood MD> Cosigner Signature (if applicable): CC: ~ Signed [facility] Work Phone: 1(663) 463-227907-20-2025 Progress note Author Bert Greenwood [facility] Note Date/Time April 16, 2025 3:27 pm [facility] Medical Records Department [address] [place] [address] Progress Note - Hospitalist 04/16/25 1503 MR#: [id number] Acct: [id number] Name: GRACIE BANUELOS Rep #:[id number] : 1965 59 From: Bert Nixon PCP: Dr. Misbah Elkins MD Status:ADM I N Location: [place] [address] Reason for Visit Chief Complaint: Abdominal Pain. [...] (Auto) 72.4 H, Lymph % (Auto)14.6 L, [place] % (Auto) 7.0, Eos % (Auto) 4.9, [...] Clarity Clear, Urine pH 7.0, Ur Specific [place] 1.005, Urine Protein 15 H, Urine Glucose [...] 74.2 H, Lymph % (Auto) 14.2 L, [place] % (Auto) 7.0, Eos % (Auto) 3.7, [...] in the pancreatic head/uncinate process. Reading Location: [place] [address] Physical Exam Narrative Seen and examined. Admitted for acute on chronic pancreatitis She was admitted last time in second week of February and at that time she had a fluid overload resulting into respiratory failure, intubation and then transferred to [facility]. Patient is very concerned of fluid overload at this time. She complained of pain 7-8 in right lower quadrant though she is tender all over. No fever. She had a pancreatic stent in the past in [facility] by Dr. Portillo. She also had pain [...] stent on 03/11/[address] Portillo in [facility]. She was discharged on 03/15/transferred to [facility]. 1. Acute on chronic pancreatitis: CT [...] (Auto) 72.4 H, Lymph % (Auto)14.6 L, [place] % (Auto) 7.0, Eos % (Auto) 4.9, [...] Clarity Clear, Urine pH 7.0, Ur Specific [place] 1.005, Urine Protein 15 H, Urine Glucose [...] 74.2 H, Lymph % (Auto) 14.2 L, [place] % (Auto) 7.0, Eos % (Auto) 3.7, [...] TSH 1.340 Charges/Coding Visit Charges Inpatient E&M: 57920 Subs Hosp L2 04/16/25 1527 <Electronically signed by Bert Greenwood MD> Cosigner Signature (if applicable): CC: ~ Signed [facility] Work Phone: 1(275) 687-446607-20-2025 History and physical note Author Jackson Chopra [facility] Note Date/Time April 16, 2025 6:01 am [facility] Medical Records Department [address] [place] [address] H&P Exam - Hospitalist 04/16/25 0049 MR#: [id number] Acct: [id number] Name: GRACIE BANUELOS Rep #:[id number] : 1965 59 From: Jackson Holcomb DO PCP: Dr. Misbah Elkins MD Status:ADM I N Location: [place] [address] HPI - General General Date of Admission: 04/16/25 Date of Service: 04/16/25 Chief Complaint: Abdominal Pain. HPI Narrative GRACIE BANUELOS, is a 59 F with a past medical history of essential hypertension; on amlodipine and lisinopril, hyperlipidemia; on simvastatin, history of tobaccoabuse for more than 30 years before quitting (02/2025); with subsequent asthma/stage III COPD, chronic hypoxic respiratory failure on 5L NC, remote history of EtOH abuse (quit 2020) with history of chronic pancreatitis, history of pancreatic stent placement at [facility] on March 10, 2025 with patient inthe process of transferring her care to Dr. Segura of gastroenterology here, history of stenosis of Left subclavian artery, chronic anemia, depression with anxiety; on aripiprazole and mirtazapine, GERD; on pantoprazole and OA; with chronic back pain on meloxicam and as needed tramadol every 6 hours who presentsto [facility] ER complaining of abdominal pain. Ms. [...] intermittent pain since her recent treatment at [facility] thatincluded pancreatic duct placement with removal of [...] of the abdomen and pelvis which revealed Zlzmm-ee-Wqamidp Pancreatitis in the pancreatic head/uncinate process with corresponding laboratory evidence of elevated lipase of 239 units/L and Leukocytosis of 18.9 Kpresent on admission complicated by Hypertensive Urgency with elevated blood pressure of 194/71 mmHg noted shortly after admission. She was then admitted tot general medical floor for ongoing care for state that is expected to extend beyond 2 midnights. [facility] Medical History (Updated 04/16/25 @ 01:[address] Jackson Monk, ) Encounter for replacement of pancreatic stent Stenosis [...] Allergy Other Verified 04/15/25 22:49 hydrocodone (From [place]) AdvReac Itching Verified 04/15/25 22:49 Family History [...] (Auto) 72.4 H, Lymph % (Auto)14.6 L, [place] % (Auto) 7.0, Eos % (Auto) 4.9, [...] Clarity Clear, Urine pH 7.0, Ur Specific [place] 1.005, Urine Protein 15 H, Urine Glucose [...] in the pancreatic head/uncinate process. Reading Location: [place] [address] Assessment & Plan Assessment/Plan (1) Acute on [...] of the abdomen and pelvis which revealed Bbexi-if-Tbwmwty Pancreatitis inthe pancreatic head/uncinate process with corresponding laboratory evidence of elevated lipase of 239 units/L - Admit to general medical floor. Keep strict NPO. Give pantoprazole 40 mg IV daily. Give ondansetron IV as needed nausea vomiting. Give promethazine IM as needed for breakthrough nausea. Give ketorolac IV for cjbw-cx-hgudojkc (level 1-5/10) pain or fever. Give morphine [...] 4. History of pancreatic stent placement at [facility] on March 10, 2025 with patient in [...] 75 minutes. Charges/Coding Visit Charges Inpatient E&M: 34644 Init Hosp L3 04/16/25 0601 <Electronically signed by Jackson Monk DO> Cosigner Signature (if applicable): CC: Dr. Misbah Elkins MD; Dr. Jackson Monk DO~ Signed [facility] Work Phone: 1(256) 376-227307-20-2025 Discharge summary Author Erik Gomez [facility] Note Date/Time April 16, 2025 12:5 6am [facility] Medical Records Department [address] [place] [address] Emergency Department Summary 04/15/25 MR#: [id number] Acct: [id number] Name: GRACIE BANUELOS Rep #:[id number] : 1965 59 From: Erik Gomez MD [...] stent put in on March 10 at [facility], it was placed due to chronic pancreatitis [...] had a cigarette in over 2 weeks. [facility] Medical History Encounter for replacement of pancreatic [...] mg 3 ml inhalation Q4H shortness of 04/09/25 06/16/25 09:00 Rx (2.5 mg base)/3 mL nebulization [...] Allergy Other Verified 04/15/25 22:49 hydrocodone (From [place]) AdvReac Itching Verified 04/15/25 22:49 Family History [...] 72.4 H Lymph % (Auto) 14.6 L [place] % (Auto) 7.0 Eos % (Auto) 4.9 [...] Clarity Clear Urine pH 7.0 Ur Specific [place] 1.005 Urine Protein 15 H Urine Glucose [...] in the pancreatic head/uncinate process. Reading Location: [place] [address] Management Discussion w/another healthcare provider: Hospitalist Discharge Plan Dx/Rx/DC Orders Clinical Impression: Acute on chronic pancreatitis, Presence of pancreatic duct stent Disposition Disposition: Acute Care Hospital [facility] What to do if you have Problems For any increased pain, shortness of breath, bleeding, nausea or vomiting, chestpain, or any unexpected problems, contact your Primary Care Provider. Call [facility] ([phone]) or report to the closest Emergency Room. Call 911 if necessary. 04/16/25 0056 <Electronically signed by Erik Gomez MD> Cosigner Signature (if applicable): CC: Dr. Misbah Elkins MD ~ Signed [facility] Work Phone: 1(505) 458-495707-20-2025 Radiology Diagnostic study [facility]07-19-2025 Discharge summary Author Erik Gomez [facility] Note Date/Time April 16, 2025 12:5 6am [facility] Medical Records Department [address] [place] [address] Emergency Department Summary 04/15/25 MR#: [id number] Acct: [id number] Name: GRACIE BANUELOS Rep #:[id number] : 1965 59 From: Erik Gomez MD [...] stent put in on March 10 at [facility], it was placed due to chronic pancreatitis [...] had a cigarette in over 2 weeks. [facility] Medical History Encounter for replacement of pancreatic [...] Allergy Other Verified 04/15/25 22:49 hydrocodone (From [place]) AdvReac Itching Verified 04/15/25 22:49 Family History [...] 72.4 H Lymph % (Auto) 14.6 L [place] % (Auto) 7.0 Eos % (Auto) 4.9 [...] Clarity Clear Urine pH 7.0 Ur Specific [place] 1.005 Urine Protein 15 H Urine Glucose [...] in the pancreatic head/uncinate process. Reading Location: [place] [address] Management Discussion w/another healthcare provider: Hospitalist Discharge Plan Dx/Rx/DC Orders Clinical Impression: Acute on chronic pancreatitis, Presence of pancreatic duct stent Disposition Disposition: [facility] What to do if you have Problems For any increased pain, shortness of breath, bleeding, nausea or vomiting, chestpain, or any unexpected problems, contact your Primary Care Provider. Call [facility] ([phone]) or report to the closest Emergency Room. Call 911 if necessary. 04/16/2555 <Electronically signed by Erik Gomez MD> Cosigner Signature (if applicable): CC: Dr. Misbah Elkins MD ~ Signed [facility] Work Phone: [phone]) 314-396907-15-2025 Telephone encounter Note* Telephone Encounter - Yuly France - 04/11/2025 9:33 AM EDT Transitional Care Management (TCM) [facility] Provider Action / FYI: na SUMMARY: Outreach type: INITIAL OUTREACH Discharge Network Status: In-Network Discharge Source of Patient: [facility] TCM Discharge Report Patient discharged from [facility] on 03.23.25. Admitted for acute on chronic respiratory failure with hypoxia. . . . . Contact made with patient: No - 2nd unsuccessful attempt - end outreach and close encounter. Yuly France April 11, 2025 9:34 AM [facility]07-15-2025 Miscellaneous Notes* Telephone Encounter - Yuly France - 04/11/2025 9:33 AM EDT Transitional Care Management (TCM) [facility] Monitoring Program Provider Action / FYI: na SUMMARY: Outreach type: INITIAL OUTREACH Discharge Network Status: In-Network Discharge Source of Patient: [facility] TCM Discharge Report Patient discharged from [facility] on 03.23.25. Admitted for acute on chronic respiratory failure with hypoxia. . . . . Contact made with patient: No - 2nd unsuccessful attempt - end outreach and close encounter. Yuly France April 11, 2025 9:34 AM documented in this encounterMer[facility]07-[facility]25 NotePatient Outreach (INTMWS) GRACIE BANUELOS ([id number]) 1965 F Date Time Provider Department 04/11/25 MISBAH ELKINS INTMWS During your visit today, we recorded the following information about you: Allergies As of Date: 04/11/2025 Noted Allergy Reaction BACTRIM (SULFAMETHOXAZOLE-TRIMETH*11/28/2022 4 - Hives HYDROCODONE 08/02/2020 9 - Itching PENICILLINS 07/07/2006 14 - Other: See Comments Comments: hives VALIUM (DIAZEPAM) 11/02/2013 14 - Other: See Comments Comments: cross reaction with alcohol addiction Date Reviewed: 04/10/2025 Reviewed by: Rosmery Barron LPN - Fully Assessed Visit Diagnosis:Encounter for screening mammogram for breast cancer [Z12.31] Order(s):SIMI SCREENING W CYNTHIA [[id number]] Order #: [id number] FUTURE Prescriptions as of 05/12/2025 - albuterol HFA (VENTOLIN HFA) 90 mcg/actuation [...] stress female [N39.3] 11/24/2014 HPV test positive [BSH2644] 11/24/2014 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 Author Type: Nurse Specialist Type: Progress Notes Filed: 04/10/2025 14:31 Note Text: Subjective Patient ID: rGacie is a 59 year old female who [...] stent placement 03/10. Patient was transferred from [facility]. There she was found to have acute pancreatitis. She had a stent placed in the body of the pancreas however on CT scan at the other hospital she had new peripancreatic inflammation. She was also experiencing acute hypoxic respiratory failure and was emergently intubated and transferred to [facility] ICU. 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 Pancreatic Stent Placement: - Stent placed by Dr. Garrido at [facility]. - Persistent abdominal pain radiating to the [...] following stent placement led to hospitalization at [facility], then transferred to [facility] due to fluid overload and septic [...] 38.3 37.0 O2 Thera (more content not included)...[facility]07-14-2025 History of Present illness Narrative* Nicolas Greer APRN.COMMERCIAL ANNOUNCER - 04/10/2025 1:55 PM EDT Subjective Patient [...] COPD with chronic hypoxic respiratory failure on baseline, chronic pancreatitis status post ERCP with stent placement 03/10. Patient was transferred from [facility]. There she was found to have acute pancreatitis. She had a stent placed in the body of the pancreas however on CT scan at the other hospital she had new peripancreatic inflammation. She was also experiencing acute hypoxic respiratory failure and was emergently intubated and transferred to [facility] ICU. 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 Pancreatic Stent Placement: - Stent placed by Dr. Garrido at [facility]. - Persistent abdominal pain radiating to the [...] following stent placement led to hospitalization at [facility], then transferred to [facility] due to fluid overload and septic [...] Ref Rng 03/16/2025 03/18/2025 03/19/2025 03/20/2025 03/21/2025 03/22/202503/23/2025 Campylobacter species (C. jejuni/C. coli/C. upsaliensis) DNA [...] Negative Ketones, Urine Negative 1+ ! Specific [place], Ur 1.005 - 1.030 1.026 Hemoglobin/Blood,Ur Negative [...] pneumonia; required mechanical ventilation. - Follow-up with lathe operator Dr. Ani Post today; noted mild wheezing [...] duct stent placement by Dr. Garrido at [facility]. - Persistent abdominal pain, described as [...] environmental cleaning to prevent transmission. Nicolas Greer APRN.COMMERCIAL ANNOUNCER Medical Decision Making: Problems: Moderate: Acute illness with systemic symptoms Data: Unique source(s) for external note(s) reviewed: 1 Unique test result(s) reviewed: 3+ Risk: Moderate: Drug management Medical Decision Making Level: 4 - Moderate documented in this encounterMer[facility]07-14-[facility]25 Telephone encounter Note * Telephone Encounter - Yuly France - 04/10/2025 9:35 AM EDT Transitional Care Management (TCM) [facility] Monitoring Program Provider Action / FYI: na SUMMARY: Outreach type: INITIAL OUTREACH Discharge Network Status: In-Network Discharge Source of Patient: [facility] TCM Discharge Report Patient discharged from [facility] on 03.23.25. Admitted for acute on chronic respiratory failure with hypoxia. . . . Contact made with patient: No - next outreach attempt will be on next . Yuly France April 10, 2025 9:37 AM [facility]07-14-2025 Miscellaneous Notes* Telephone Encounter - Yuly France - 04/10/2025 9:35 AM EDT [facility] Provider Action / FYI: na SUMMARY: Outreach type: INITIAL OUTREACH Discharge Network Status: In-Network Discharge Source of Patient: [facility] TCM Discharge Report Patient discharged from [facility] on 03.23.25. Admitted for acute on chronic respiratory failure with hypoxia. . . . Contact made with patient: No - next outreach attempt will be on next . Yuly France April 10, 2025 9:37 AM documented in this encounterMercy Health [facility]07-08-2025 Telephone encounter Note * Telephone Encounter - Juan Borjas MA - 04/04/2025 4:31 PM EDT Patient r/s to 04/10/25 with TB. Juan Borjas MA [facility]07-08-2025 Miscellaneous Notes* Telephone Encounter - Juan Borjas [...] r/s. Juan Borjas MA documented in this encounterMercy Health [facility]07-08-2025 Telephone encounter Note * Telephone Encounter - Rosy Blancas - 04/04/2025 3:12 PM EDT [facility] Provider Action / FYI: NA SUMMARY: Outreach type: INITIAL OUTREACH Discharge Network Status: In-Network [facility]charge [facility] Report Patient discharged from [facility] on 03.23.25. Admitted for acute on chronic respiratory failure with hypoxia. . . Contact made with patient: No, for Follow-up - end outreach and close encounter. Rosy Blancas April 04, 2025 3:15 PM [facility]07-08-2025 Miscellaneous Notes* Telephone Encounter - Rosy Blancas - 04/04/2025 3:12 PM EDT [facility] Provider Action / FYI: NA SUMMARY: Outreach type: INITIAL OUTREACH Discharge Network Status: In-Network Discharge [facility] Report Patient discharged from [facility] on 03.23.25. Admitted for acute on chronic respiratory failure with hypoxia. . . Contact made with patient: No, for Follow-up - end outreach and close encounter. Rosy Blancas April 04, 2025 3:15 PM documented in this encounterMercy Health [facility]07-08-2025 Telephone encounter Note * Telephone Encounter - Nellie Duke - 04/04/2025 2:25 PM EDT Patient unaware that her appt with Milly today was cancelled and she is looking to reschedule, please advise. [facility]07-08-2025 Miscellaneous Notes* Telephone Encounter - Nellie Duke - 04/04/2025 2:25 PM EDT Patient unaware that her appt with Milly today was cancelled and she is looking to reschedule, please advise. documented in this encounterMercy Health [facility]07-08-2025 Telephone encounter Note * Telephone Encounter - [...] assist patient with r/s. Juan Borjas MA [facility]07-08-2025 Telephone encounter Note* Telephone Encounter - Yuly France - 04/04/2025 9:45 AM EDT Transitional Care Management (TCM) [facility] Provider Action / FYI: na SUMMARY: Outreach type: INITIAL OUTREACH Discharge Network Status: In-Network Discharge Source of Patient: [facility] TCM Discharge Report Patient discharged from [facility] on 03.23.25. Admitted for acute on chronic respiratory failure with hypoxia. . Contact made with patient: No - 2nd unsuccessful attempt - end outreach and close encounter. Yuly France April 04, 2025 9:47 AM [facility]07-08-2025 Miscellaneous Notes* Telephone Encounter - Yuly France - 04/04/2025 9:45 AM EDT Transitional Care Management (TCM) [facility] Provider Action / FYI: na SUMMARY: Outreach type: INITIAL OUTREACH Discharge Network Status: In-Network Discharge Source of Patient: [facility] TCM Discharge Report Patient discharged from [facility] on 03.23.25. Admitted for acute on chronic respiratory failure with hypoxia. . Contact made with patient: No - 2nd unsuccessful attempt - end outreach and close encounter. Yuly France April 04, 2025 9:47 AM documented in this encounterMercy Health [facility]07-02-2025 Telephone encounter Note * Telephone Encounter - Juan Bloom LPN - 03/29/2025 3:51 PM EDT VM left on listed number to discuss symptoms. Juan Bloom LPN [facility] Work Phone: 1(694) 206-172107-02-2025 Miscellaneous Notes* Telephone Encounter - Juan Bloom LPN - 03/29/2025 3:51 PM EDT VM left on listed number to discuss symptoms. 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 Patient is not sure if it is nte medication gabapetion or a virus. Patient would like a call back. Please review and advise. 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 Patient is not sure if it is nte medication gabapetion or a virus. Patient would like a call back. Please review and advise. Dayana [facility]07-01-2025 Telephone encounter Note* Telephone Encounter - Herman Nevarez RN - 03/28/2025 1:02 PM EDT [facility] Provider Action / FYI: N/A SUMMARY: Outreach type: INITIAL OUTREACH Discharge Network Status: In-Network Discharge Source of Patient: [facility] TCM Discharge Report Patient discharged from [facility] on 03/23/25. Admitted for acute on chronic respiratory failure with hypoxia. Contact made with patient: No - next outreach attempt will be on next business day. Herman Nevarez RN March 28, 2025 1:04 PM [facility]07-01-2025 Miscellaneous Notes* Telephone Encounter - Herman Nevarez RN - 03/28/2025 1:02 PM EDT Trans[facility] Provider Action / FYI: N/A SUMMARY: Outreach type: INITIAL OUTREACH Discharge Network Status: In-Network Discharge Source of Patient: [facility] TCM Discharge Report Patient discharged from [facility] on 03/23/25. Admitted for acute on chronic respiratory failure with hypoxia. Contact made with patient: No - next outreach attempt will be on next business day. Herman Nevarez RN March 28, 2025 1:04 PM documented in this encounterMercy Health [facility]06-26-2025 NoteHNO ID: [id number] Author: KERRI AARON RN Service: Nursing Author Type: Registered Nurse Type: Progress Notes Filed: 03/23/2025 19:49 Note Text: Patient has been discharged from the unit. IV removed with tip intact. Telemetry removed, cleaned and returned. Discharge papers and instructions given to patient. Oxygen tank provided to patient upon discharge.[facility] 03-23-2025 NoteHNO ID: [id number] Author: INNA SEBASTIAN RN Service: Care Management [...] needed Transportation Arrangements Transportation Arrangements: Uber/Ly[employer] (through insurance company) Handoff Communication: Handoff to: Gas Collection System Operator Gas Collection System Operator Name/Phone: misbahra elkins Additional Information: N/A Discharge Information Row Name Admission (Current) from 03/15/2025 in [facility] Durable Medical Equipment Agency gianna Equipment Needed walker delivered to room prior [...] not have a car. CM [facility] for transport home. Cm also called [employer] will bring a tank to patient today for transport home. Walker delivered to room per gianna. Patient declines need for home care. Exercises [...] Banuelos DATE: March 23, 2025 TIME: 3:02 PMO[facility]06-26-2025 NoteHNO ID: [id number] Author: AGUSTINA MURRAY CPhT Service: ? Author Type: Programming Development Project Manager Type: Plan of Care Filed: 03/23/2025 14:12 Note Text: PHARMACY BEDSIDE DELIVERY SERVICE Patient Name: Gracie Banuelos The marked outpatient medications were Filled at: [facility] and delivered to the patient's bedside to [...] predniSONE 20 mg tablet Commonly known as: DELTAKINGE Agustina Murray [facility] PAGER: kaur March 23, 2025 2:03 PMO[facility]06-26-2025 NoteHNO ID: [id number] Author: INNA SEBASTIAN RN Service: Care Management [...] therapy on dc. Patient is interested in ISOTOPE HYDROLOGIST, plans to go home with sister and sister can assist in all care. Maribel called insurance about ISOTOPE HYDROLOGIST and CM also provided ISOTOPE HYDROLOGIST information provided 03/21. Patient requesting walker for home going. FOC provided as gianna. Order placed and gianna notified of need. Plan home, CM monitoring for need for increase in o2 at home. Gianna needs notified on day of dc to deliver walker. Order placed. CM will follow. SIGNATURE: Inna Sebastian RN PATIENT NAME: Gracie Banuelos DATE: March 23, 2025 TIME: 8:53 AMO[facility] & [facility]06-25-2025 NoteHNO ID: [id number] Author: GURJIT RAYO MD Service: Hospital Medicine [...] 1,200 mg ORAL q 12 H Ipratropium [place] 1 spray nasal spray (ATROVENT) 1 spray [...] stent placement 03/10. Patient was transferred from [facility]. There she was found to have acute pancreatitis. She had a stent placed in the body of the pancreas however on CT scan at the other hospital she had new peripancreatic inflammation. She was alsoexperiencing acute hypoxic respiratory failure and was emergently intubated and transferred to [facility] ICU. She required vasopressor support [...] aeration - Pulm following (more content not included)...[facility]06-25-2025 NoteHNO ID: [id number] Author: INNA SEBASTIAN RN Service: Care Management [...] therapy on dc. Patient is interested in ISOTOPE HYDROLOGIST, plans to go home with sister and sister can assist in all care. Paimichele instructed to call insurance about ISOTOPE HYDROLOGIST and ISOTOPE HYDROLOGIST information provided this date. Patient requesting walker for home going. FOC provided as gianna. Order placed and gianna notified of need. Patient will also call [employer] to bring tank to her for discharge and see how high her home concentrator goes (if it goes to 5L or 10L). Plan home, CM monitoring for need for increase in o2 at home. Jackson needs notified on day of dc to deliver walker. Order placed. CM will follow. SIGNATURE: Inna Sebastian RN PATIENT NAME: Garcie Banuelos DATE: March 22, 2025 TIME: 9:46 [facility]06-24-2025 NoteHNO ID: [id number] Author: INNA SEBASTIAN RN Service: Care Management Author Type: Registered Nurse Type: Care Mgt Progress Note Filed: 03/21/2025 11:09 Note Text: CARE MANAGEMENT PROGRESS NOTE SERVICE DATE: 03/21/2025 SERVICE TIME: 11:06 AM LOS: 6 days [place] of Choice Given: Yes Level of Care [...] therapy on dc. Patient is interested in ISOTOPE HYDROLOGIST, plans to go home with sister and sister can assist in all care. Paient instructed to call insurance about ISOTOPE HYDROLOGIST and ISOTOPE HYDROLOGIST information provided this date. Patient requesting walker [...] Banuelos DATE: March 21, 2025 TIME: 11:06 AMO[facility]06-[facility]25 Telephone encounter Note* Telephone Encounter - [...] Holly Jensen March 21, 2025 8:57 AM [facility]06-24-2025 Miscellaneous Notes* Telephone Encounter - Holly Herrera [...] 21, 2025 8:57 AM documented in this encounterMercy Health [facility]06-24-2025 NoteHNO ID: [id number] Author: GURJIT RAYO MD Service: Hospital Medicine [...] stent placement 03/10. Patient was transferred from [facility]. There she was found to have acute pancreatitis. She had a stent placed in the body of the pancreas however on CT scan at the other hospital she had new peripancreatic inflammation. She was alsoexperiencing acute hypoxic respiratory failure and was emergently intubated and transferred to [facility] ICU. She required vasopressor support [...] DC vancomycin - Spu (more content not included)...[facility]06-23-2025 NoteHNO ID: [id number] Author: GURJIT RAYO MD Service: Hospital Medicine [...] stent placement 03/10. Patient was transferred from [facility]. There she was found to have acute pancreatitis. She had a stent placed in the body of the pancreas however on CT scan at the other hospital she had new peripancreatic inflammation. She was alsoexperiencing acute hypoxic respiratory failure and was emergently intubated and transferred to [facility] ICU. She required vasopressor support due to septic shock and was noted to have bilateral pneumonia. She was extubated and transferred to the floors. She remained hemodynamically stable off pressors but had increasing oxygen requirements. Acute on chronic hypoxic respiratory failure (more content not included)...[facility]06-23-2025 NoteHNO ID: [id number] Author: INNA SEBASTIAN RN Service: Care Management [...] Banuelos DATE: March 20, 2025 TIME: 8:36 AMO[facility]06-22-2025 NoteHNO ID: [id number] Author: NGUYEN PALACIOS DO Service: Hospital Medicine Author Type: Physician Type: Plan of Care Filed: 03/28/2025 17:20 Note Text: There was a PSYCHIATRY RESIDENT called on this patient due to elevated [...] to R/O PE. Echo does not show CHF.[facility]06-22-2025 NoteHNO ID: [id number] Author: NGUYEN PALACIOS DO Service: Hospital Medicine [...] 5 L NC. Patient was transferred from [facility]. There she was found to have acute pancreatitis. She had a stent placed in the body of the pancrease however on CT scan at the other hospital she had new peripancreatic inflammation. She was also experiencing acute hypoxic respiratory failure and was emergently intubated and transferred to [facility]. Patient was admitted [facility] ICU. She was on levophed and vasopressin. [...] and Airways Line Duration Peripheral 03/16/25 0000 [facility] Facility Short Right Forearm 18 Gauge 3 days Peripheral 03/16/25 0000 External Facility Short Left Antecubital 20 Gauge 3 days Peripheral 03/16/25 0000 External Facility Short Right Antecubital 20 Gauge 3 days Reviewed lines and needs to be continued: REASONS: Difficulty in obtaining/maintaining access DATA: Diagnostic tests reviewed for today's visit: Most recent labs Most recent imaging Assessment/Virgen (more content not included)...[facility]06-22-2025 Note HNO ID: [id number] Author: AGUSTINA PACHECO RN Service: Care Management Author Type: Registered [...] was completed 03/10. She initially presented to [facility] but was a transfer to [facility] following intubation. She is being treated for respiratory failure/PNA/chronic pancreatitis/sepsis.She is being treated with aerosols, IV antibiotics, and vasopressor support. At her baseline she is independent in her ADL's with the exception of transport which her family provides. Her DME includes a bipap, shower chair, and 5L NC reportedly from [facility]. She is established with her PCP, uses [...] Banuelos DATE: March 19, 2025 TIME: 10:08 AMOregon [facility]06-21-2025 NoteHNO ID: [id number] Author: NGUYEN PALACIOS DO Service: Hospital Medicine Author Type: Physician Type: Plan of Care Filed: 03/18/2025 13:58 Note Text: This is a 59 year old female with past medical history of COPD, Chronic hypoxic respiratory failure on 5 L NC. Patient was transferred from [facility]. There she was found to have acute pancreatitis. She had a stent placed in the body of the pancrease however on CT scan at the other hospital she had new peripancreatic inflammation. She was also experiencing acute hypoxic respiratory failure and was emergently intubated and transferred to [facility]. Patient was admitted [facility] ICU. She was on levophed and vasopressin. [...] check iron studies. Keep hemoglobin greater than 7[facility]06[facility]25 NoteHNO ID: [id number] Author: GERSON MCCALL MD Service: Critical Care [...] Intake/Output Summary (Last 24 hours) at 03/18/2025 0850 Last data filed at 03/18/2025 0745 Gross [...] (GEODON) 40 mg caps (more content not included)...[facility]06-20-2025 NoteHNO ID: [id number] Author: GERSON MCCALL MD Service: Critical Care [...] MonitorHome blood pressure monitorDisp (more content not included)...[facility]06-19-2025 NoteHNO ID: [id number] Author: ANNETTA HUYNH RN Service: Care Management [...] Relation: Daughter Admission Status: Inpatient Insurance Provider: [facility] MEDICAID Discharge Planning requested by: Per Department Practice Potential Transition Plans Home, Home Care, Home OT/PT, Fpc Facility/Intermediate Care Facility, To Be Determined Advance Directives Current Advance Directive: Health Care Power of Gear Cutting Machine Set Up Operator In Chart: No Dish Carrier Attempted to Assist with AD Completion: No [...] Be able to go home, General wellness [place] of Choice Explained: [place] of Choice Given: Yes Level of Care Discussed: Home Care, Fpc Facility Are you interested in bedside delivery [...] were you homeless or living in a alf (including now)?: No Utilities In the past 12 months has the electric, gas, oil, or water company threatened to shut off services in your home?: No [place] of Choice Given: Yes Level of Care Discussed: Home Care, Fpc Facility Financial Disclosure Provided: Yes Provider List: Home Care, Fpc Facility Provider list within the patient's requested geographic area shared with the patient/family: Yes within: [address] miles of [facility] code: 05986 Quality and resource use metrics shared with the patient that are relevant to the patient's goals of care and treatment preferences:: Yes Late entry 03/17 0850. Chart reviewed. Patient came to the hospital from home with two of her adult children for epigastric pain. Her pain reportedly started following a pancreatic stent placement which was completed 03/10. She initially presented to [facility] but was a transfer to [facility] following intubation. She is being treated for respiratory failure/PNA/chronic pancreatitis/sepsis.She is being treated with aerosols, IV antibiotics, and vasopressor support.As she is vented/sedated plan was discussed with her daughter Caitie Ferro. At her baseline she is independent in her ADL's with the exception of transport which her family provides. Her DME includes a bipap, shower chair, and 5L NC reportedly from [employer]. Her home oxygen orders will need verified. She is established with her PCP, uses no community resources, and can afford her medications. At this time plan is TBD pending clinical course. I provided SNF/HHC lists for her family to review. Patient has a HCPOA on file which appoints her daughter Caitie hernandez. Her contact number is [phone]. The first alternate is her sister Domonique Banuelos- [phone]. SIGNATURE: Annetta Huynh RN PATIENT NAME: Gracie Banuelos DATE: March 16, 2025 TIME: 2:52 PMOregon Health & Science [facility]06-19-2025 NoteHNO ID: [id number] Author: TRENTON HECK APRN.CNP Service: Critical Care Author Type: Nurse Practitioner Type: Procedures Filed: 03/16/2025 14:10 Note Text: BEDSIDE PROCEDURE NOTE CENTRAL LINE INSERTION Date/Start Time: 03/16/2025 1:30 PM Date/Stop Time: 03/16/2025 1:50 PM Performed by: Trenton Heck APRN.LEGAL EXECUTIVE ASSISTANT Authorized by: Trenton Heck APRN.IGOR Where was Patient When this Procedure was Performed: Bedside/Unscheduled Procedure Room Informed Consent Consent Obtained: Verbal (Sister Domonique) [place] Protocol A moment to CARE was completed. [...] was applied following the usual aseptic technique. [facility] Central Line Insertion Checklist, attached to [...] Clarke DATE: March 16, 2025 TIME: 2:07 PMOregon Health & Science [facility] Hospital06-19-2025 Telephone encounter Note* Telephone Encounter - Eva Martines RN - 03/16/2025 1:20 PM EDT Patient's daughter calls and wanted provider aware that patient is currently at [facility] on aVentilator. Daughter apologizes for forgetting to cancel appointment yesterday. Daughter states that mother was being put on a ventilator at that time. Eva Martines RN [facility]06-19-2025 Miscellaneous Notes* Telephone Encounter - Eva Martines RN - 03/16/2025 1:20 PM EDT Patient's daughter calls and wanted provider aware that patient is currently at [facility] on aVentilator. Daughter apologizes for forgetting to cancel appointment yesterday. Daughter states that mother was being put on a ventilator at that time. Eva Martines RN documented in this encounterMercy Health [facility]06-19-2025 NoteHNO ID: [id number] Author: GERSON MCCALL MD Service: Critical Care [...] muscle spasm.Disp: 15 table (more content not included)...[facility]06-19-[address] [facility]06-19-2025 NoteHNO ID: [id number] Author: MAKSIM ANDERSON APRN.LEGAL EXECUTIVE ASSISTANT Service: ? Author Type: Nurse Practitioner Type: Progress Notes Filed: 03/16/2025 07:05 Note Text: CRITICAL CARE TRANSPORT MEDICAL CONTROL CONSULT NOTE Patient Name: Gracie Banuelos Service Date: March 16, 2025 Referring Facility: [facility] Accepting Facility: [facility] REASON FOR TRANSPORT: Higher level intensive care services not available at the referring facility REASON FOR CONSULT: Hypotension and Sedation CCT MEDICAL CONTROL CONSULT SUMMARY: History, physical exam findings, and available background patient information from [facility] Transport Nurse were reviewed at the time of consult. Pertinent additional information was reviewed as follows: [facility] transport request log In brief, Gracie Banuelos is a 59 year old female with a history, known at time of consult, significant for Smoking and COPD (5L N/C at home) who was admitted to [facility] for evaluation of Acute on Chronic [...] HCO3 26.8. Patient is being transferred to [facility] for higher level intensive care services not [...] confirmed and read back via telephone with [facility] Transport road crew member, Dung Coe, Safety Administrator SIGNATURE: Maksim Anderson APRN.CNP Acute Care Nurse Practitioner Critical [facility]Sum[facility] History of Present illness Narrative* Maksim Anderson APRN.CNP - 03/16/2025 5:45 AM EDT Images from the original note were not included. CRITICAL CARE TRANSPORT MEDICAL CONTROL CONSULT NOTE Patient Name: Gracie Banuelos Service Date: March 16, 2025 Referring Facility: [facility] Accepting Facility: [facility] REASON FOR TRANSPORT: Higher level intensive care services not available at the referring facility REASON FOR CONSULT: Hypotension and Sedation CCT MEDICAL CONTROL CONSULT SUMMARY: History, physical exam findings, and available background patient information from [facility] Transport Nurse were reviewed at the time of consult. Pertinent additional information was reviewed as follows: [facility] transport request log In brief, Gracie Banuelos is a 59 year old female with a history, known at time of consult, significant for Smoking and COPD (5L N/C at home) who was admitted to [facility] for evaluation of Acute on Chronic [...] HCO3 26.8. Patient is being transferred to [facility] for higher level intensive care services not [...] confirmed and read back via telephone with [facility] Transport road crew member, Dung Coe, Safety Administrator SIGNATURE: Maksim Anderson APRN.CNP Acute Care Nurse Practitioner Critical Care Transport documented in this encounterMercy Health [facility]06-19-2025 JffsENII-DJF-6 (AGENT OF COVID-19) RNA: Not detected INFLUENZA A RNA: Not detected INFLUENZA B RNA: Not detected RESPIRATORY SYNCYTIAL VIRUS (RSV) RNA: Not detectedOregon Health & Science University HospitalComment on above:Performed By: #### [id number] #### [facility] CLIA [id number] [address] [place], [place] [id number] [facility]06-19-2025 Respiratory pathogens DNA and RNA 12b panel [...] DNA: Not detected BORDETELLA PARAPERTUSSIS DNA: Not detectedOregon Health & Science University HospitalComment on above:Performed By: #### 20233-5 #### [facility] CLIA [id number] [address] [place], [place] [address] [facility]06-18-2025 Progress note Author Sudhir Izquierdo [facility] Note Date/Time March 15, 2025 8:39 pm [facility] Medical Records Department [address] [place] [address] Progress Note 03/15/252036 MR#: [id number] Acct: [id number] Name: GRACIE BANUELOS Rep #:[id number] : 1965 59 From: Sudhir pace MD [...] Cosigner Signature (if applicable): CC: ~ Signed [facility] Work Phone: 1(173) 391-330606-18-2025 Progress note Author Sudhir Izquierdo [facility] Note Date/Time March 15, 2025 7:20 pm [facility] Medical Records Department [address] [place] [address] Progress Note 03/15/251917 MR#: [id number] Acct: [id number] Name: GRACIE BANUELOS Rep #:[id number] : 1965 59 From: Sudhir pace MD [...] Cosigner Signature (if applicable): CC: ~ Signed [facility] Work Phone: 1(704) 113-991906-18-2025 Progress note Author Sudhir Izquierdo [facility] Note Date/Time March 15, 2025 7:17 pm [facility] Medical Records Department [address] [place] [address] Progress Note 03/15/251913 MR#: [id number] Acct: [id number] Name: GRACIE BANUELOS Rep #:[id number] : 1965 59 From: Sudhir pace MD [...] less than 1 cc. Procedures Hospitalists Procedures: 29176 Insert Emergency Airway 03/15/251916 <Electronically signed by Sudhir Izquierdo MD> Sudhir Izquierdo MD Cosigner Signature (if applicable): CC: ~ Signed [facility] Work Phone: 1(116) 588-237606-18-2025 Progress note Author Sudhir Izquierdo [facility] Note Date/Time March 15, 2025 7:13 pm [facility] Medical Records Department [address] [place] [address] Progress Note 03/15/251911 MR#: [id number] Acct: [id number] Name: GRACIE BANUELOS Rep #:[id number] : 1965 59 From: Sudhir pace MD PCP: Dr. Misbah Elkins MD Status:ADM I N Location: ICU CVICU20 3- Progress Note Throughout the day her pCO2 [...] intubation is emergent. Will also call the [facility] transfer line to change designation to critical care patient to see if this expedites transfer. 03/15/251912 <Electronically signed by Sudhir Izquierdo MD> Sudhir Izquierdo MD Cosigner Signature (if applicable): CC: ~ Signed [facility] Work Phone: 1(835) 652-838706-18-2025 Progress note Author Sudhir Izquierdo [facility] Note Date/Time March 15, 2025 7:12 pm [facility] Medical Records Department [address] [place] [address] Progress Note - Hospitalist 03/15/25 190 MR#: [id number] Acct: [id number] Name: GRACIE BANUELOS Rep #:[id number] : 1965 59 From: Sudhir pace MD [...] 83.6 H, Lymph % (Auto) 5.8 L, [place] % (Auto) 6.1, Eos % (Auto) 0.3, [...] lower lobes. Enlarged cardiac silhouette. Reading Location: [place] [address] Chest X-Ray 03/15/25 17:00 IMPRESSION: As above. Reading Location: [place] [address] Physical Exam Narrative General: Alert, Oriented x3, [...] show she is pending transfer back to [facility] ? Remain n.p.o. ? Will hold [...] DVT: Lovenox Charges/Coding Visit Charges Inpatient E&M: 80316 Subs Hosp L3 03/15/251911 <Electronically signed by Sudhir Izquierdo MD> Cosigner Signature (if applicable): CC: ~ Signed [facility] Work Phone: 1(293) 163-393706-18-2025 Radiology Diagnostic study [facility]06-18-2025 Consult note Author Gonzalo Sebastian [facility] Note Date/Time March 15, 2025 11:5 1am [facility] Medical Records Department [address] [place] [address] Consultation - Health Services Coordinator 03/15/25819 MR#: [id number] Acct: [id number] Name: GRACIE BANUELOS Rep #:[id number] : 1965 59 From: Gonzalo Sebastian DO PCP: Dr. Misbah Elkins MD Status:ADM I N Location: ICU CVICU 3-1 Assessment & Plan Assessment/Plan (1) Acute on chronic respiratory failure with hypoxia and hypercapnia: PLAN: Plan RECOMMENDATIONS: 1. Continue AVAPS therapy and obtain follow-up ABG in 2 hours. 2. Stop continuous IV fluids. 3. Agree with administration of diuretics. 4. Continue scheduled bronchodilators. 5. Low threshold for intubation if respiratory status worsens. 6. Awaiting transfer to [facility], pending bed availability. IMPRESSIONS: 1. Acute on [...] patient was recently discharged on Thursday from [facility] following pancreatic stent placement. She presented again with worsening abdominal pain and elevatedlipase and was subsequently placed on supplemental IV fluids, with transfer pending to [facility]. 3. History of hypertension/hyperlipidemia/anxiety/depression/GERD/hypothyroidism/tobacco dependency Complicates care, management, recovery and prognosis. Continue home medicationsas indicated along with supportive care as noted above. This note was generated with Fame[employer] dictation software. It may contain incorrectwords, spelling, [...] prior alcohol use with recent hospitalization at [facility] last week for pancreatic stent placement, performed [...] was made to proceed with transfer to [facility] for further management. Although the patient was [...] vascular congestion. BNP is elevated at 4257. [facility] Medical History Stenosis of left subclavian [...] Allergy Other Verified 02/26/25 13:57 hydrocodone (From [place]) AdvReac Itching Verified 02/26/25 13:57 Family History [...] 83.6 H, Lymph % (Auto) 5.8 L, [place] % (Auto) 6.1, Eos % (Auto) 0.3, [...] lower lobes. Enlarged cardiac silhouette. Reading [facility] Charges/Coding Visit Charges Inpatient E&M: 76205 Init Hosp L3 03/15/25 1151 <Electronically signed by Gonzalo Sebastian DO> Cosigner Signature (if applicable): CC: Dr. Misbah Elkins MD~ Signed [facility] Work Phone: 1(995) 789-684306-18-2025 Radiology Diagnostic study [facility]06-17-2025 Progress note Author Sudhir Izquierdo [facility] Note Date/Time March 14, 2025 10:3 6am [facility] Medical Records Department [address] [place] [address] Progress Note - Hospitalist 03/14/25 1025 MR#: [id number] Acct: [id number] Name: GRACIE BANUELOS Rep #:[id number] : 1965 59 From: Sudhir pace MD PCP: Dr. Misbah Elkins MD Status:ADM I N Location: [place] [address] Subjective Subjective No issues overnight, leukocytosis is [...] (Auto) 83.5 H, Lymph% (Auto) 6.3 L, [place] % (Auto) 8.1, Eos % (Auto) 0.5, [...] Clarity Clear, Urine pH 7.0, Ur Specific [place] 1.005, Urine Protein 30 H, Urine Glucose [...] (Auto) 81.7 H, Lymph% (Auto) 9.0 L, [place] % (Auto) 6.4, Eos % (Auto) 1.2, [...] at the time of dictation. Reading [facility] Chest X-Ray 03/13/25 12:40 IMPRESSION: No evidence of acute cardiopulmonary pathology. Reading Location: [id number] Physical Exam Narrative General: Alert, Oriented x3, [...] show she is pending transfer back to [facility] ? Remain n.p.o. ? Continue with [...] DVT: Lovenox Charges/Coding Visit Charges Inpatient E&M: 43622 Subs Hosp L2 03/14/25 1036 <Electronically signed by Sudhir Izquierdo MD> Cosigner Signature (if applicable): CC: ~ Signed [facility] Work Phone: 1(617) 408-929106-17-2025 Evaluation note* Diagnosis Onset Date Resolution Status Admit Date Abdominal pain acute March 13, 2025 11:28pm [...] April 16, 2025 1:14am Leukocytosis acute April 16 1:14am Presence of pancreatic duct stent acute April 16, 2025 1:14am COPD (chronic obstructive pulmonary disease) chronic April 16 1:14am Acute on chronic pancreatitis resolv ed April 16, 2025 1:14am History of insertion of pancreatic stent acute April 26, 2025 1:34pm Loose stools acute April 26 1:34pm Chronic pancreatitis chronic April 26, 2025 1:34pm Alcoholic hepatitis chronic Augus t 2024 1:00pm Anxiety and depression chronic Au dustin 2024 1:00pm Asthma chronic May 24 1:00pm Chronic respiratory failure with hypoxia chronic May 24 1:00pm COPD (chronic obstructive pulmonary disease) chronic May 24, 2025 1:00pm Smoking greater than 30 pack years chronic May 24 1:00pm History of insertion of pancreatic stent acute July 06 9:16am Chronic pancreatitis chronic Octo 2024 9:16am Alcohol abuse resolved June 9:16am [facility] Work Phone: 1(309) 683-126306-17-2025 History and physical note Author Pako Fernández [facility] Note Date/Time March 13, 2025 11:2 8pm [facility] Medical Records Department [address] [place] [address] History & Physical Exam 03/13/25 2320 MR#: [id number] Acct: [id number] Name: GRACIE BANUELOS Rep #:[id number] : 1965 59 From: Pako Fernández MD [...] several months. She was recently admitted to [facility] and treated by GI specialist Dr. Portillo. She had a surgery performed for her pancreatitis and a stent was placed this past Thursday. Patient states she has had worsening epigastric abdominal pain since discharge on Thursday. She denies fever, chills, shortness of breath, chest pain, diarrhea constipation or dysuria. Patient has been accepted to [facility] for transferfrom the emergency room, however, a bed is not available this evening and patient will be admitted temporarily in our facility while pending transfer to tertiary care facility to address pancreatic stent and acute pancreatitis. [facility] Medical History Stenosis of left subclavian [...] Allergy Other Verified 02/26/25 13:57 hydrocodone (From [place]) AdvReac Itching Verified 02/26/25 13:57 Family History [...] (Auto) 83.5 H, Lymph% (Auto) 6.3 L, [place] % (Auto) 8.1, Eos % (Auto) 0.5, [...] Clarity Clear, Urine pH 7.0, Ur Specific [place] 1.005, Urine Protein 30 H, Urine Glucose [...] evidence of acute cardiopulmonary pathology. Reading Location: [id number] Assessment & Plan Assessment/Plan (1) Smoking greater than 30 pack years: (2) COPD (chronic obstructive pulmonary disease): QUALIFIERS: COPD type: emphysema Emphysema type: centrilobular Qualified Code(s): J43.2 - Centrilobular emphysema (3) Abdominal pain: (4) Chronic pancreatitis: QUALIFIERS: Pancreatitis type: alcohol induced Qualified Code(s):K86.0 - Alcohol-induced chronic pancreatitis PLAN: Plan 1. Acute on chronic pancreatitis?admit patient temporarily to our facility pending transfer to [facility], make n.p.o., IV normal saline at [...] routinely 4. DVT prophylaxis?low molecular weight heparin 03/13/252327 <Electronically signed by Pako Fernández MD> Cosigner Signature (if applicable): CC: Dr. Misbah Elkins MD; Dr. Pako Fernández MD~ Signed [facility] Work Phone: 1([phone]) 240-575306-17-2025 Discharge summary Author Macario Alex [facility] Note Date/Time March 13, 2025 11:1 5pm [facility] Medical Records Department [address] [place] [address] Emergency Department Summary 03/13/25 MR#: [id number] Acct: [id number] Name: GRACIE BANUELOS Rep #:[id number] : 1965 59 From: Macario mccain DO PCP: Dr. Misbah Elkins MD Status:REG E R Location: ED ADDENDUM by Dr. Rica Doe DO on 03/13/25 at 2315 Care of patient turned over to me awaiting transfer to [facility] for abdominal pain and pancreatitis. Patient had more abdominal discomfort while awaiting transfer and I did give her 4 mg of morphine and 4 mg of Zofran. Patient also walked to the bathroom and back and became hypoxic on her oxygen. She has history of COPD. I did give her a DuoNeb aerosol. [facility] was contacted and they will not have a bed available today and I was asked to admit the patient to our facility until a bed becomes available. Spokewith Dr. Pako Fernández who will see patient for admission. 03/13/25 1668<Electronically signed by Rica Doe DO> Cosigner Signature [...] states she had a recent admission at [facility] in which she wasseen by a GI [...] intact Psych: Cooperative, appropriate mood and affect [facility] Medical History Stenosis of left subclavian [...] Allergy Other Verified 02/26/25 13:57 hydrocodone (From [place]) AdvReac Itching Verified 02/26/25 13:57 Family History [...] placed on Thursday with Dr. Garrido at [facility]. Differential diagnosis includes but is not limited [...] is in agreement. We reached out to [facility], they have no record of the patient. Patient was informed of this and now states she cannot care at [facility]. Reached out to the transfer line at [facility]. I spoke with Dr. Pascual BENÍTEZ [...] 83.5 H Lymph % (Auto) 6.3 L [place] % (Auto) 8.1 Eos % (Auto) 0.5 [...] Color Urine Clarity Urine pH Ur Specific [place] Urine Protein Urine Glucose (UA) Urine Ketones [...] (Auto) Neut % (Auto) Lymph % (Auto) [place] % (Auto) Eos % (Auto) Baso % [...] Clarity Clear Urine pH 7.0 Ur Specific [place] 1.005 Urine Protein 30 H Urine Glucose [...] at the time of dictation. Reading [facility] Chest X-Ray 03/13/25 12:40 IMPRESSION: No evidence of acute cardiopulmonary pathology. Reading Location: [id number] Discharge Plan Triage Chief Complaint: Abd Pain [...] MD [Primary Care Provider] - Print Language: Eritrean What to do if you have Problems For any increased pain, shortness of breath, bleeding, nausea or vomiting, chestpain, or any unexpected problems, contact your Primary Care Provider. Call [facility] ([phone]) or report to the closest Emergency Room. Call 911 if necessary. 03/13/25 1716 <Electronically signed by Macario Alex DO> Cosigner Signature (if applicable): CC: Dr. Misbah Elkins MD ~ Signed [facility] Work Phone: 1(997) 331-174106-16-[address] [facility]06-16-2025 Discharge summary Author [facility] Note Date/Time March 13, 2025 11:1 5pm [facility] Medical Records Department [address] [place] [address] Emergency Department Summary 03/13/25 MR#: [id number] Acct: [id number] Name: GRACIE BANUELOS Rep #:[id number] : 1965 59 From: Macario mccain DO PCP: Dr. Misbah Elkins MD Status:REG E R Location: ED ADDENDUM by Dr. Rica Doe DO on 03/13/25 at 2315 Care of patient turned over to me awaiting transfer to [facility] for abdominal pain and pancreatitis. Patient had more abdominal discomfort while awaiting transfer and I did give her 4 mg of morphine and 4 mg of Zofran. Patient also walked to the bathroom and back and became hypoxic on her oxygen. She has history of COPD. I did give her a DuoNeb aerosol. [facility] was contacted and they will not [...] states she had a recent admission at [facility] in which she wasseen by a GI [...] intact Psych: Cooperative, appropriate mood and affect [facility] Medical History Stenosis of left subclavian [...] Allergy Other Verified 02/26/25 13:57 hydrocodone (From [place]) AdvReac Itching Verified 02/26/25 13:57 Family History [...] placed on Thursday with Dr. Garrido at [facility]. Differential diagnosis includes but is not limited [...] is in agreement. We reached out to [facility], they have no record of the patient. Patient was informed of this and now states she cannot care at [facility]. Reached out to the transfer line at [facility]. I spoke with Dr. Pascual BENÍTEZ [...] 83.5 H Lymph % (Auto) 6.3 L [place] % (Auto) 8.1 Eos % (Auto) 0.5 [...] Color Urine Clarity Urine pH Ur Specific [place] Urine Protein Urine Glucose (UA) Urine Ketones [...] (Auto) Neut % (Auto) Lymph % (Auto) [place] % (Auto) Eos % (Auto) Baso % [...] Clarity Clear Urine pH 7.0 Ur Specific [place] 1.005 Urine Protein 30 H Urine Glucose [...] evidence of acute cardiopulmonary pathology. Reading Location: [id number] Discharge Plan Triage Chief Complaint: Abd Pain [...] MD [Primary Care Provider] - Print Language: Eritrean What to do if you have Problems For any increased pain, shortness of breath, bleeding, nausea or vomiting, chestpain, or any unexpected problems, contact your Primary Care Provider. Call [facility] ([phone]) or report to the closest Emergency Room. Call 911 if necessary. 03/13/25 1716 <Electronically signed by Macario Alex DO> Cosigner Signature (if applicable): CC: Dr. Misbah Elkins MD ~ Signed [facility] Work Phone: 1(614) 335-174006-16-2025 Radiology Diagnostic study [facility]06-16-2025 [facility] Work Phone: 1(507) 372-569506-16-2025 Telephone encounter Note* Telephone Encounter - Juan [...] to leave a message. Juan Bloom LPN [facility] Work Phone: 1(234) 289-659806-16-2025 Miscellaneous Notes* Telephone Encounter - Juan Bloom [...] Juan Bloom LPN * Telephone Encounter - Jeffery Isis - 03/13/2025 9:57 AM EDT Gracie calling #[phone] Patient states she's in a lot of [...] Thank you Isis R documented in this encounterMer[facility]06-16-2025 Telephone encounter Note * Telephone Encounter - Isis Gil - 03/13/2025 9:57 AM EDT Gracie calling #[phone] Patient states she's in a lot of [...] to someone first. Thank you Isis R [facility]06-13-2025 Nurse Note* Janis Ac RN - 03/10/2025 5:[address] Chakraborty anesthesia ok d patient to be discharged Three hot packs given to patient for right arm [facility]06-13-2025 Nurse Note* Janis Ac RN - [...] patient Gracie and sister Magui spoke to Customer Liaison nurse transport manager [facility] [place] given. Pharmacy called, [facility] pharmacist [...] RN In Department: GASTROENTEROLOGY documented in this encounterMercy Health [facility]06-13-2025 Nurse Note* Janis Ac RN - 03/10/2025 4:33 PM EDT Patient states her arm where the infiltration occurred it is burning Patient informed to keep an eye on the infiltrated area so a blister does not form of it does go to the Emergency room [facility]06-13-2025 Nurse Note* Janis Ac RN - 03/10/2025 4:02 PM EDT Right AC IV infiltrated with 100cc IV Propofol large swollen red hard area Hot pack applied Patientcrying stating arm hurts patient Gracie and sister Magui spoke to Customer Liaison nurse transport manager [facility] office number given. Pharmacy called, [facility] pharmacist notified unable to help. Called Drug information line spoke with Milan fallon monitor patient There is no information in regards to amount of time Propofol will take to infuse .Patient is awake alert oriented x3 [facility]06-13-2025 Nurse Note* Janis Ac RN - 03/10/2025 3:[address] Chakraborty anesthesia notified patients blood pressure low 73/52 74/51 Albumin 25 grams given Patient awake alert oriented x3 skin warm and dry [facility]06-13-2025 Nurse Note* Janis Ac RN - [...] MATERIAL: Procedure Discharge Instructions REFERRAL (RECOMMENDATION): None [facility]06-13-2025 NoteQ3 Patient Name: Gracie Banuelos Procedure Date: 03/10/2025 1:46 PM Date of : 1965 Admit Type: Outpatient Age: 59 Gender: Female Note Status: Finalized Attending MD: Jane Farrell MD, [id number] Procedure: ERCP Indications: Chronic pancreatitis, For therapy [...] procedure well. Moderate Sedation: GA Findings: A caption writer film of the abdomen was obtained. Multiple [...] remove stent. Procedure Code(s): --- Professional --- 82355, Endoscopic retrograde cholangiopancreatography (ERCP); with placement of endoscopic stent into biliary or pancreatic duct, including pre- and post-dilation and guide wire passage, when performed, including sphincterotomy, when performed, each stent 36563, Endoscopic retrograde cholangiopancreatography (ERCP); with removal of calculi/debris from (more content not included)...[id number] NoteHNO ID: [id number] Author: VANESSA PEREZ APRN.CRNA Service: ? Author Type: Nurse Block Cuber Type: Anesthesia Procedure Notes Filed: 03/10/2025 14:41 Note Text: ANESTHESIOLOGY PROCEDURE NOTE Airway General Information Procedure Start Time/Medication Administration: 03/10/2025 2:15 PM Procedure End Time: 03/10/2025 2:15 PM Patient location during procedure: OR Timeout Performed Pre-procedure: timeout performed Consent Obtained: Yes Patient identity confirmed: arm band, care steam train driver and patient Staffing OBSERVATORY DIRECTOR: Vanessa Perez APRN.OBSERVATORY DIRECTOR Performed by: OBSERVATORY DIRECTOR Indications and Patient Condition Indications for airway management: anesthesia and airway protection Preoxygenated: yes anesthesia circuit Patient position: sniffing Method: sleep Difficult Mask: No Final Airway Details Final airway type: endotracheal airway Final Endotracheal Airway: ETT Cuffed: yes Successful intubation technique: video laryngoscopy Devices used: AccuRev Endotracheal tube insertion site: oral Blade size: #3 ETT size (mm): 7.0 Measured from: lips Measurement (cm): 21 Placement verified by: capnometry Cormack-Lehane Classification: grade I - full view of glottis Number of attempts at approach: 1 Airway not difficult SIGNATURE: Vanessa Perez APRN.OBSERVATORY DIRECTOR PATIENT NAME: Gracie Banuelos DATE: March 10, 2025 TIME: 2:40 PM CSN: [id number] [facility]06-13-[facility]25 NoteQ3 Patient Name: Gracie Banuelos Procedure Date: 03/10/2025 1:46 PM Date of : 1965 Admit Type: Outpatient Age: 59 Gender: Female Note Status: Finalized Attending MD: Jane Farrell MD, [id number] Procedure: ERCP Indications: Chronic pancreatitis, For therapy [...] procedure well. Moderate Sedation: GA Findings: A caption writer film of the abdomen was obtained. Multiple [...] remove stent. Procedure Code(s): --- Professional --- 92844, Endoscopic retrograde cholangiopancreatography (ERCP); with placement of endoscopic stent into biliary or pancreatic duct, including pre- and post-dilation and guide wire passage, when performed, including sphincterotomy, when performed, each stent 94446, Endoscopic retrograde cholangiopancreatography (ERCP); with removal of calculi/debris from biliary/pancreatic duct(s) 82643, Endoscopic catheterization of the pancreatic ductal system, radiological supervision and interpretation Diagnosis Code(s): --- Professional --- K86.89, Other specified diseases of pancreas K86.1, Other chronic pancreatitis R93.2, Abnormal findings on diagnostic imaging of liver and biliary tract CPT copyright 2020 [employer]. All rights reserved. Attending Participation: I personally performed the entire procedure. Scope In: 2:28:14 PM Scope Out: 2:49:25 PM MD Jane Fields MD 03/10/2025 3:19:29 PM This report has been signed electronically by Jane Farrell MD Number of Addenda: 0 Note Initiated On: 03/10/2025 1:46 [facility]06-13-2025 Nurse Note* Adrian Edmond RN - [...] By: Adrian Edmond RN In Department: GASTROENTEROLOGY [facility]06-10-2025 Telephone encounter Note* Telephone Encounter - Isis Gil - 03/07/2025 2:29 PM EDT Patient called, did not receive email. She stated it had to all be in lower case. I resent email Thank you Isis Joe [facility]06-10-2025 Miscellaneous Notes* Telephone Encounter - Isis [...] Farrell MD Department of Gastroenterology- Advanced Endoscopy [address] [place], [place] [id number] 03/07/2025 Pt. name: Gracie Banuelos 1965 MEDICAL Procedure This is to certify that Gracie Banuelos this is a letter to confirm that Gracie has a procedure at [facility] on 03/10 with an arrival time of 12pm. This appointment needs to have a responsible adult class c truck driver to accompany her for transportation to and after her procedure. Sincerely, Jane Farrell MD * Telephone Encounter - Isis Gil - 03/07/2025 11:40 AM EDT She stated there was supposed to be a letter or some document to be faxed over to [facility] to help pay for her gas prior to her ERCP on 03/10/25 Email: Are we able to get that sent over for patient? Thank you Isis Joe documented in this encounterMercy Health [facility]06-10-2025 Telephone encounter Note * Telephone Encounter - Juan Bloom LPN - 03/07/2025 12:28 PM EDT Images from the original note were not included. Jane Farrell MD Department of Gastroenterology- Advanced Endoscopy [address] [id number] 03/07/2025 Pt. name: Gracie Banuelos 1965 MEDICAL Procedure This is to certify that Gracie Banuelos this is a letter to confirm that Gracie has a procedure at [facility] on 03/10 with an arrival time of 12pm. This appointment needs to have a responsible adult class c truck driver to accompany her for transportation to and after her procedure. Sincerely, Jane Farrell MD [facility] Work Phone: 1(255) 507-833006-10-2025 NoteHNO ID: [id number] Author: JUAN BLOOM LPN Service: ? Author Type: LICENSED NURSE Type: Progress Notes Filed: 03/07/2025 12:28 Note Text: Jane Farrell MD Department of Gastroenterology- Advanced Endoscopy [address] [id number] 03/07/2025 Pt. name: Gracie Banuelos 1965 MEDICAL Procedure This is to certify that Gracie Banuelos this is a letter to confirm that Gracie has a procedure at [facility] on 03/10 with an arrival time of 12pm. This appointment needs to have a responsible adult class c truck driver to accompany her for transportation to and after her procedure. Sincerely, Lara Siddiki [facility]06-10-2025 History of Present illness Narrative* Juan Bloom LPN - 03/07/2025 11:57 AM EDT Images from the original note were not included. Jane Farrell MD Department of Gastroenterology- Advanced Endoscopy [address] [id number] 03/07/2025 Pt. name: Gracie Banuelos 1965 MEDICAL Procedure This is to certify that Gracie Banuelos this is a letter to confirm that Gracie has a procedure at [facility] on 03/10 with an arrival time of 12pm. This appointment needs to have a responsible adult class c truck driver to accompany her for transportation to and after her procedure. Sincerely, Jane Farrell MD documented in this encounterMercy Health [facility] Hospital06-10-2025 Telephone encounter Note * Telephone Encounter - Isis Gil - 03/07/2025 11:40 AM EDT She stated there was supposed to be a letter or some document to be faxed over to [employer] to help pay for her gas prior to her ERCP on 03/10/25 Email: [email or web address] Are we able to get that sent over for patient? Thank you Isis Joe [facility]06-09-2025 Telephone encounter Note* Telephone Encounter - Juan Senior APRN.IGOR - 03/06/2025 3:53 PM EDT Patient calling to discuss anxiety related to ERCP on Saturday 03/10. She is wondering if she can receive something for anxiety prior to procedure. Patient instructed to ask Dr. Farrell prior. Patient also asking for email to be sent to [email or web address] (community action assistance program) with proof ofprocedure for gas money. Patient also reports diarrhea and changes in mental status/forgetfulness and extreme fatigue after increasing gabapentin dose. Instructed patient to decrease dose from TID to BID. Also strongly encouraged patient to keep upcoming appointment with pain management. All questions answered at this time. Will follow up after procedure. Juan Senior APRN.CNP [facility] Work Phone: [phone] Miscellaneous Notes* Telephone Encounter - Juan Senior APRN.CNP - 03/06/2025 3:53 PM EDT Patient calling to discuss anxiety related to ERCP on Saturday 03/10. She is wondering if she can receive something for anxiety prior to procedure. Patient instructed to ask Dr. Farrell prior. Patient also asking for email to be sent to [email or web address] ([employer] action assistance program) with proof ofprocedure for [...] 300 mg capsule. Please send script to: [facility] [address] [place] [id number] [address] - [phone] [142] Dayana Martell documented in this encounterMercy Health [facility]sburg Hospital06-09-2025 Telephone encounter Note * Telephone Encounter - Caitlin Obrien RN - 03/06/2025 11:30 AM EDT Attempted to reach patient to answer he questions from call this morning, no answer. VM left to call the office back. [facility] Work Phone: 1([phone]) 321-465906-09-2025 Miscellaneous Notes* Telephone Encounter - Caitlin Obrien RN - 03/06/2025 11:30 AM EDT Attempted to reach patient to answer he questions from call this morning, no answer. VM left to call the office back. documented in this encounterMercy Health [facility] Hospital06-09-2025 Telephone encounter Note * Telephone Encounter - Isis Gil - 03/06/2025 9:04 AM EDT Gracie calling #[phone] Patient is calling regarding wanting to speak [...] voicemail is ok. Thank you Isis Joe [facility]06-09-2025 Miscellaneous Notes* Telephone Encounter - Isis Gil - 03/06/2025 9:04 AM EDT Gracie calling #[phone] Patient is calling regarding wanting to speak [...] Thank you Isis Joe documented in this encounterMercy Health Perrysburg Hospital06-06-2025 Nurse Note* Jaelyn Kothari RN - 03/03/2025 9:48 AM EDT Attempted to reach the patient at the contact number that they provided [phone] (home) . Unable to speak with patient so without identifying the patient the following information was left on their voice mail: Date of procedure, location and report time A message was left informing the patient/patient event representative they must have a responsible adult [...] Number to call with questions or concerns [phone] Number to call to cancel their procedure [phone] Jaelyn Kothari RN [facility]06-06-2025 Nurse Note* Jaelyn Kothari RN - 03/03/2025 9:48 AM EDT Attempted to reach the patient at the contact number that they provided [phone] (home) . Unable to speak with patient so without identifying the patient the following information was left on their voice mail: Date of procedure, location and report time A message was left informing the patient/patient event representative they must have a responsible adult [...] Number to call with questions or concerns [phone] Number to call to cancel their procedure [phone] Jaelyn Kothari, RN documented in this encounterMercy Health [facility]sburg Hospital06-01-2025 Radiology Diagnostic study [facility]05-16-2025 Telephone encounter Note* Telephone Encounter - Pam Pino - 02/10/2025 11:31 AM EDT Received / transmitted outside records to patient's chart. See scanned documents tab (clearance letter). [facility] Work Phone: [phone]) [phone] Miscellaneous Notes* Telephone Encounter - Pam Pino - 02/10/2025 11:31 AM EDT Received / transmitted outside records to patient's chart. See scanned documents tab (clearance letter). documented in this encounterMercy Health Perrysburg Hospital05-14-2025 Evaluation note* Diagnosis Onset Date Resolution Status [...] 2025 1:34pm Loose stools acute April 26, 025 1:34pm Chronic pancreatitis chronic April 26, 2025 1:34pm [facility] Work Phone: 1([phone]) 803-850805-14-2025 Evaluation note* Diagnosis Onset Date Resolution Status [...] 2025 9:57am Anxiety and depression chronic Ju 2024 9:57am Asthma chronic April 10 9:57am [...] April 16 1:14am Acute on chronic pancreatitis resolv ed April 16, 2025 1:14am History of insertion of pancreatic stent acute April 26, 2025 1:34pm Loose stools acute April 26, 025 1:34pm Chronic pancreatitis chronic April 26, 2025 1:34pm [facility] Work Phone: 1(636) 856-233205-14-2025 Evaluation note* Diagnosis Onset Date Resolution Status [...] 16, 2025 1:14am Leukocytosis acute April 16, 2 025 1:14am Presence of pancreatic duct stent acute April 16, 2025 1:14am COPD (chronic obstructive pulmonary disease) chronic April 16 1:14am Acute on chronic pancreatitis resolv ed April 16, 2025 1:14am History of insertion of pancreatic stent acute April 26, 2025 1:34pm Loose stools acute April 26, 025 1:34pm Chronic pancreatitis chronic April 26, 2025 1:34pm Alcoholic hepatitis chronic Augus t 2024 1:00pm Anxiety and depression chronic Au dustin 2024 1:00pm Asthma chronic May 24, 025 1:00pm Chronic respiratory failure with hypoxia chronic May 24 1:00pm COPD (chronic obstructive pulmonary disease) chronic May 24, 2025 1:00pm Smoking greater than 30 pack years chronic May 24 1:00pm [facility] Work Phone: [phone]) 500-613805-09-2025 Telephone encounter Note* Telephone Encounter - Dayana Bone - 02/03/2025 2:45 PM EDT Patient called the office and would like a refill for gabapentin (NEURONTIN) 300 mg capsule. Please send script to: [facility] [address] [place] [address] [address] - [phone] [922] Dayana Martell [facility]04-29-2025 Telephone encounter Note* Telephone Encounter - [...] Holly Jensen January 24, 2025 8:59 AM [facility]04-29-2025 Miscellaneous Notes* Telephone Encounter - Holly [...] 24, 2025 8:59 AM documented in this encounterMercy Health Perrysburg Hospital04-22-2025 Telephone encounter Note * Telephone Encounter - Mihaela Cadena - 01/17/2025 12:01 PM EDT Appears patient was seen on 01/13/25 [facility]04-22-2025 Miscellaneous Notes* Telephone Encounter - Mihaela [...] Ibuprofen 400 mg. Patient uses [facility], [place]. documented in this encounterMercy Health Perrysburg Hospital04-18-2025 NoteHNO ID: [id number] Author: SOILA EASTON APRN.LEGAL EXECUTIVE ASSISTANT Service: ? Author Type: Nurse Practitioner Type: Progress Notes Filed: 01/13/2025 11:33 Note Text: CC: Patient presents with: Recheck: Follow up HPI Gracie Banuelos is a 59 year old female who presents today for gout concerns. Recording using [employer] software for draft documentation of the visit was discussed with the patient/authorized event representative; all questions welcomed and answered. Patient/authorized event representative agreed to proceed Gout: - Under [...] of months ago asa ordered by her food technology teacher. - Denies redness or red streaking; [...] will be in the 90s. States her lathe operator is aware of this. - Concerns about potential need for ventilator post-surgery. - Under care of Dr. Sebastian and Ani at [facility]. - No recent infections, fever, [...] Stage 3 severe COPD by GOLD classification ([facility]) 2018 Tobacco use greater than [...] by mouth once daily. (more content not included)...[facility]04-18-2025 History of Present illness Narrative* Soila Easton APRN.LEGAL EXECUTIVE ASSISTANT - 01/13/2025 11:11 AM EDT CC: Patient presents with: Recheck: Follow up HPI Gracie Banuelos is a 59 year old female who presents today for gout concerns. Recording using [employer] software for draft documentation of the visit was discussed with the patient/authorized event representative; all questions welcomed and answered. Patient/authorized event representative agreed to proceed Gout: - Under [...] of months ago asa ordered by her food technology teacher. - Denies redness or red streaking; [...] will be in the 90s. States her lathe operator is aware of this. - Concerns about potential need for ventilator post-surgery. - Under care of Dr. Sebastian and Ani at [facility]. - No recent infections, fever, [...] Stage 3 severe COPD by GOLD classification ([facility]) 2018 Tobacco use greater than [...] Cancer Screening due on 01/11/2024 Covid-19 Vaccine( season) due on 05/29/2024 Annual PCP Team [...] evaluation and [facility] - Awaiting pancreatic stent placement; pulmonary [...] care of Dr. Sebastian and Ani at [facility]. - No recent infections, fever, [...] Patient agreeable to treatment plan. Soila Easton APRN.LEGAL EXECUTIVE ASSISTANT documented in this encounterMercy Health Perrysburg Hospital04-17-2025 Telephone encounter Note * Telephone Encounter - Marge Perkins RN - 01/12/2025 1:15 PM EDT Pt has appointment with Soila Easton Computer Methods Analyst on 01/14/24. [facility]04-17-2025 Miscellaneous Notes* Telephone Encounter - Marge Perkins RN - 01/12/2025 1:15 PM EDT Pt has appointment with Soila Easton Computer Methods Analyst on 01/14/24. * Telephone Encounter - Aleta Carroll MA - 01/10/2025 9:51 AM EDT Spoke with pt, she states she has urinary incontinence and trouble holding her urine when she is outside her home. Sent rx to [facility]. FYI: Pt scheduled appt tomorrow with Soila [...] can get pull ups paid for through [employer]. She states the provider jst has to [...] advise. Marge Perkins RN documented in this encounterMercy Health [facility] Hospital04-15-2025 Telephone encounter Note * Telephone Encounter - Aleta Carroll MA - 01/10/2025 9:51 AM EDT Spoke with pt, she states she has urinary incontinence and trouble holding her urine when she is outside her home. Sent rx to [facility]. FYI: Pt scheduled appt tomorrow with Soila Easton to discuss multiple concerns. Aleta Carroll MA [facility]04-14-2025 Telephone encounter Note* Telephone Encounter - Misbah Elkins MD - 01/09/2025 10:00 PM EDT Please confirm with her, the symptoms for which she needs the pull ups, Misbah Cisneros MD [facility]04-14-2025 Telephone encounter Note* Telephone Encounter - Marge Perkins RN - 01/09/2025 7:13 PM EDT Pt called in and reports she can get pull ups paid for through [employer]. She states the provider jst has to [...] Please call and advise. Marge Perkins, RN [facility]04-14-2025 Telephone encounter Note* Telephone Encounter - Juan Bloom LPN - 01/09/2025 12:44 PM EDT Disp Refills Start End gabapentin (NEURONTIN) 300 mg capsule 60 capsule 0 01/09/2025 02/08/2025 Sig: Take 1 capsule by mouth two times a day for 30 days. Sent to pharmacy as: gabapentin (NEURONTIN) 300 mg capsule Class: Normal Route: ORAL Order: [id number] Cosign for Ordering: Required by Juan Senior APRN.LEGAL EXECUTIVE ASSISTANT E-Prescribing Status: Sent to pharmacy (01/09/2025 12:43 PM EDT) [facility] Work Phone: [phone]) 447-222404-14-2025 Miscellaneous Notes* Telephone Encounter - Juan Bloom LPN - 01/09/2025 12:44 PM EDT Disp Refills Start End gabapentin (NEURONTIN) 300 mg capsule 60 capsule 0 01/09/2025 02/08/2025 Sig: Take 1 capsule by mouth two times a day for 30 days. Sent to pharmacy as: gabapentin (NEURONTIN) 300 mg capsule Class: Normal Route: ORAL Order: [id number] Cosign for Ordering: Required by Juan Senior APRN.LEGAL EXECUTIVE ASSISTANT E-Prescribing Status: Sent to pharmacy (01/09/2025 12:43 [...] February. Please review and advise. Dayana Martell Histology Aide documented in this encounterMer[facility]04-14-2025 Telephone encounter Note * Telephone Encounter [...] Juan Senior for recommendations. Juan Bloom LPN [facility] Work Phone: 1(255) 680-454704-14-2025 Miscellaneous Notes* Telephone Encounter - Juan Bloom [...] pain? Raisa Jimenez MA documented in this encounterMer[facility]04-14-2025 Telephone encounter Note * Telephone Encounter - Raisa Jimenez RN - 01/09/2025 8:53 AM EDT Pt is calling asking that someone please contact her. She is in extreme pain and missed her pain management appt She's left several messages but is asking if you can put a script in for pain? Raisa Jimenez MA [facility]04-11-2025 Telephone encounter Note* Telephone Encounter - Dayana Bone - 01/06/2025 12:39 PM EDT Patient called the office stating that she missed her pain management appointment and would like toknow if the office would be able to prescribe her some pain medication until she is able to have her appointment in February. Please review and advise. Dayana Martell Histology Aide [facility]04-10-2025 Telephone encounter Note* Telephone Encounter - Noemí Self - 01/05/2025 1:36 PM EDT Patient called. She missed her pain management appointment today. She was rescheduled for March 14. She would like to speak to you regarding this today, if possible. [phone] (home) [facility] Work Phone: 1(207) 352-156604-10-2025 Miscellaneous Notes* Telephone Encounter - Noemí Self - 01/05/2025 1:36 PM EDT Patient called. She missed her pain management appointment today. She was rescheduled for March 14. She would like to speak to you regarding this today, if possible. [phone] (home) documented in this encounterMer[facility]04-08-2025 Telephone encounter Note * Telephone Encounter [...] of this medication. Please send today [facility], per patient she was told to [...] Jordana Estes January 03, 2025 12:24 PM [facility]04-08-2025 Miscellaneous Notes* Telephone Encounter - Jordana Zayas - 01/03/2025 [...] of this medication. Please send today [facility], per patient she was told to [...] 03, 2025 12:24 PM documented in this encounterMercy Health [facility]04-07-2025 Telephone encounter Note * Telephone Encounter - Eva Guardado - 01/02/2025 2:11 PM EDT Left message for patient to return call. When patient calls, please obtain the answers to Soila Easton's questions below or transfer to nurse to get the requested information. Eva Guardado [facility]04-07-2025 Telephone encounter Note* Telephone Encounter - Soila Easton APRN.CNP - 01/02/2025 9:26 AM EDT Hesitant to send the ibuprofen. What has she been taking for pain? She was jsut in hospital with EGD and found blood in her mouth any recent Gi bleeds? Ibuprofen can cause GI bleeds. Thank you Soila Easton APRN.CNP [facility]04-07-2025 Telephone encounter Note* Telephone Encounter - [...] Chauhan LPN January 02, 2025 8:30 AM [facility]04-06-2025 Radiology Diagnostic study [facility]04-06-2025 Discharge summary Author Leandro Sanchez [facility] Note Date/Time January 01, 2025 10:0 6pm [facility] Medical Records Department [address] [place] [address] Emergency Department Summary 01/01/25 MR#: [id number] Acct: [id number] Name: GRACIE BANUELOS Rep #:[id number] : 1965 59 From: Leandro Sanchez MD [...] to have surgery on December 27 at [facility], but it was postponed secondary to her lathe operator stating that she should not have surgery [...] on January 05, 4 days from now. [facility] Medical History Stenosis of left subclavian [...] Allergy Other Verified 01/01/25 20:30 hydrocodone (From [place]) AdvReac Itching Verified 01/01/25 20:30 Family History [...] and nonlateralizing. Const Vital Signs: 01/01/25 20:27 04/06/25 20:31 01/01/25 21:01 Temperature 97.7 F L [...] was bolused normal saline 1 L intravenously. [id number] with a normal anion gap of 11. [...] interstitial markings. No focal consolidation. [facility] Chief Complaint: Abd [...] pain, new or worsening symptoms. Print Language: Eritrean Disposition Disposition: Home, Self Care What to do if you have Problems For any increased pain, shortness of breath, bleeding, nausea or vomiting, chestpain, or any unexpected problems, contact your Primary Care Provider. Call [facility] ([phone]) or report to the closest Emergency Room. Call 911 if necessary. 01/01/252205 <Electronically signed by Leandro Sanchez MD> Cosigner Signature (if applicable): CC: Dr. Misbah Elkins MD ~ Signed [facility] Work Phone: 1(279) 585-250404-05-2025 Telephone encounter Note* Telephone Encounter - Tyra Meraz RN - 12/31/2024 2:32 PM EDT Patient calling with request for medication/refill: Patient/caregiver requesting refill of Motrin and Zofran be called to [facility] at [phone]., Allergies reviewed: Yes, Medication, dosage and sig reviewed: Yes. , Do you have enough medication to last until the office reopens? Yes. ,and Have you contacted your pharmacy to ask for enough medication to get by until the office reopens? No. Patient denies any new or worsening symptoms of which a provider is not aware: Yes. [facility]04-05-2025 Miscellaneous Notes* Telephone Encounter - Tyra Meraz RN - 12/31/2024 2:32 PM EDT Patient calling with request for medication/refill: Patient/caregiver requesting refill of Motrin and Zofran be called to [facility] pharmacy at [phone]., Allergies reviewed: Yes, Medication, dosage and sig reviewed: Yes. , Do you have enough medication to last until the office reopens? Yes. ,and Have you contacted your pharmacy to ask for enough medication to get by until the office reopens? No. Patient denies any new or worsening symptoms of which a provider is not aware: Yes. documented in this encounterMer[facility]04-05-2025 Telephone encounter Note * Telephone Encounter - Marge Handy RN - 12/31/2024 2:08 PM EDT Patient calling with medication/refill: Patient/caregiver requesting refill of ibuprofen be called to [facility] pharmacy at [phone]., Allergies reviewed: Yes, Medication, dosage and sig [...] requested a refill of ondansetron but per [facility], she should have a refill available. Advised [...] and had no further questions or concerns. [facility] Work Phone: 1([phone]) 312-819904-05-2025 Miscellaneous Notes* Telephone Encounter - Marge Handy RN - 12/31/2024 2:08 PM EDT Patient calling with medication/refill: Patient/caregiver requesting refill of ibuprofen be called to [facility] pharmacy at [phone]., Allergies reviewed: Yes, Medication, dosage and sig [...] requested a refill of ondansetron but per [facility], she should have a refill available. Advised [...] further questions or concerns. documented in this encounterMercy [facility]04-05-2025 Telephone encounter Note * Telephone Encounter - Carolyne Trimble - 12/31/2024 9:25 AM EDT Patient called stating she has pain mgmt appt on 01/05. Patient is requesting zofran, and extra strength Ibuprofen 400 mg. Patient uses [facility] [place]. [facility] Work Phone: 1(747) 366-334404-02-2025 Telephone encounter Note* Telephone Encounter - Juan [...] Juan Senior as well Juan Bloom LPN [facility] Work Phone: 1(947) 914-130604-02-2025 Miscellaneous Notes* Telephone Encounter - Juan Bloom [...] Patient returned call. Can be reached at: [phone] (home) * Telephone Encounter - Juan Bloom [...] and advise. Dayana Martell documented in this encounterMercy Health [facility]04-02-2025 Telephone encounter Note * Telephone Encounter - Noemí Self - 12/28/2024 3:14 PM EDT Patient returned call. Can be reached at: [phone] (home) [facility] Work Phone: 1(936) 959-677404-02-2025 Telephone encounter Note* Telephone Encounter - Juan Bloom LPN - 12/28/2024 3:02 PM EDT VM left for Gracie Banuelos to discuss current symptoms Offered to call office for discussion. Juan Bloom LPN [facility]04-02-2025 Telephone encounter Note* Telephone Encounter - Lyric Yeung - 12/28/2024 8:53 AM EDT Outside pulmonary function test & CT lung screen results scanned in Epic Lyric Yeung [facility]04-01-2025 Telephone encounter Note* Telephone Encounter - Dayana [...] COPD. Please review and advise. Dayana Martell [facility]03-28-2025 Telephone encounter Note* Telephone Encounter - Raisa Jimenez RN - 12/23/2024 12:30 PM EDT Spoke with pt and went over instructions and directions for her appt on 12/27/24. Pt wrote down verbal instructions and confirmed understanding Raisa Jimenez MA (Nell) [facility]03-28-2025 Miscellaneous Notes* Telephone Encounter - Raisa Jimenez RN - 12/23/2024 12:30 PM EDT Spoke with pt and went over instructions and directions for her appt on 12/27/24. Pt wrote down verbal instructions and confirmed understanding Raisa Jimenez MA (Nell) documented in this encounterMercy Health [facility] Hospital03-28-2025 Evaluation note* Diagnosis Onset Date Resolution Status Admit Date Acute cholecystitis acute December 23, 2024 9:59am Alcoholic hepatitis chronic December 23, 2024 9:59am Anxiety and depression chronic [facility] 2024 9:59am Asthma chronic December 23 9:59am [...] 16, 2025 1:14am Leukocytosis acute April 16, 2 025 1:14am Presence of pancreatic duct stent acute April 16, 2025 1:14am Acute on chronic pancreatitis chroni c April 16, 2025 1:14am COPD (chronic obstructive pulmonary disease) chronic April 16 1:14am [facility] Work Phone: 1(733) 737-260003-27-2025 Telephone encounter Note* Telephone Encounter - Eileen Chavez MA - 12/22/2024 9:01 AM EDT Message sent. [facility]03-27-2025 Miscellaneous Notes* Telephone Encounter - Eileen [...] her when they are. documented in this encounterMercy Health [facility]03-27-2025 Telephone encounter Note * Telephone Encounter - Soila Easton APRN.CNP - 12/22/2024 8:07 AM EDT I am assuming this is regards to the chest xray as ordered by tara Youngblood. If so please see her result note on the xray. If not, please specify which xray I need to address. Thank you Soila Easton APRN.CNP [facility]03-26-2025 Telephone encounter Note* Telephone Encounter - Sylvia Chawla MA - 12/21/2024 2:05 PM EDT Pt informed Pt asking for xray results but still in process Sylvia Chawla MA [facility]03-26-2025 Miscellaneous Notes* Telephone Encounter - Sylvia [...] discussed in office. Thank you, Tara Youngblood APRN.LEGAL EXECUTIVE ASSISTANT documented in this encounterMercy Health [facility] Hospital03-26-2025 Telephone encounter Note * Telephone Encounter - Tara Youngblood APRN.CNP - 12/21/2024 9:25 AM EDT Please call patient and let her know that lab work results are improving. WBC is actually slightly improved from inpatient recent labs. Lipase level is WNL which is great. Continue as discussed in office. Thank you, Tara Youngblood APRN.LEGAL EXECUTIVE ASSISTANT [facility] Work Phone: 1(123) 850-396103-25-2025 Nurse Note* Carroll Leblanc RN - 12/20/2024 2:55 PM EDT Attempted to reach the patient at the contact number that they provided [phone] (home) . Unable to speak with patient so without identifying the patient the following information was left on their voice mail: Date of procedure, location and report time Prep instructions A message was left informing the patient/patient event representative they must have a responsible adult [...] Number to call with questions or concerns [phone] Number to call to cancel their procedure [phone] Craroll Leblanc RN [facility]03-25-2025 Nurse Note* Carroll Leblanc RN - 12/20/2024 2:55 PM EDT Attempted to reach the patient at the contact number that they provided [phone] (home) . Unable to speak with patient so without identifying the patient the following information was left on their voice mail: Date of procedure, location and report time Prep instructions A message was left informing the patient/patient event representative they must have a responsible adult [...] Number to call with questions or concerns [phone] Number to call to cancel their procedure [phone] Carroll Leblanc RN documented in this encounterMercy Health [facility] Hospital03-24-2025 Telephone encounter Note * Telephone Encounter - Marge Perkins RN - 12/19/2024 6:51 PM EDT Pt called in for x-ray results. I let Pt know they are not back in yet and provider would call her when they are. [facility]03-24-2025 History of Present illness Narrative* Roland Camargo [...] PATIENT PRESENTS WITH AN IMPLANTABLE OR ATTACHED HORTICULTURAL MANAGER: No RADIOLOGY DEPARTMENT: General X-ray: Exam(s) Completed: Chest X-Ray PERIPHERAL IV DATA: Not applicable SIGNED BY: RT Oneyda(Heath) December 19, 2024 3:53 PM documented in this encounterMercy Health [facility]03-24-2025 NoteHNO ID: [id number] Author: ROLAND CAMARGO RT(R) Service: Radiology Author [...] PATIENT PRESENTS WITH AN IMPLANTABLE OR ATTACHED HORTICULTURAL MANAGER: No RADIOLOGY DEPARTMENT: General X-ray: Exam(s) Completed: Chest X-Ray PERIPHERAL IV DATA: Not applicable SIGNED BY: Roland Camargo RT(R) December 19, 2024 3:53 [facility]03-24-2025 History of Present illness Narrative* Tara Youngblood, TRANSMISSIONS SYSTEMS OPERATOR.LEGAL EXECUTIVE ASSISTANT - 12/19/2024 2:40 PM EDT Chief Complaint Patient presents with: hospital f/up HPI Gracie Banuelos is a 59 year old female who presents here today for Above Complaints. Gracie is an established patient of Dr. Satnam MD. Concerns today.. Hospital follow-up--- [facility] admission from 12/04-12/12 d/t acute [...] help her quit. 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 Chronic recurrent pancreatitis -- had recent surgery [...] failure (HCC) COPD (chronic obstructive pulmonary disease) ([facility]) 05/25/2012 DDD (degenerative disc disease), [...] Stage 3 severe COPD by GOLD classification ([facility]) 2018 Tobacco use greater than [...] capsule by mouth at bedtime as needed. pqfptc-icenjfzh-lygshys (CREON 24) 24,000-76,000 -120,000 unit delayed release [...] ICD10: F17.200 - Cessation encouraged. Pt declined histology aide to help with cessation. Pt has [...] agreeable to treatment plan. Tara Youngblood APRN.CNP [address] [place] [address] documented in this encounterMercy Health [facility] Hospital03-24-2025 NoteHNO ID: [id number] Author: TARA YOUNGBLOOD APRN.CNP Service: ? Author Type: Nurse Practitioner Type: Progress Notes Filed: 12/19/2024 15:33 Note Text: Chief Complaint Patient presents with: hospital f/up HPI Gracie Banuelos is a 59 year old female who presents here today for Above Complaints. Gracie is an established patient of Dr. Satnam MD. Concerns today.. Hospital follow-up--- [facility] admission [...] help her quit. 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 Chronic recurrent pancreatitis -- had recent surgery [...] Stage 3 severe COPD by GOLD classification ([facility]) 2018 Tobacco use greater than [...] (LOPRESSOR) 25 mg ta (more content not included)...[facility]03-17-2025 Consult note [facility] Medical Records Department [address] [place] [address] Anesthesia Postop Eval II 12/12/24 1751 MR#: [id number] Acct: [id number] Name: GRACIE BANUELOS Rep #:[id number] : 1965 59 From: Jeferson Breaux MD PCP: Dr. Misbah Elkins MD Status:ADM I N Y Race: C Location: [place] [address] 3-1 Anesthesia Postop Eval I Sum Postop Eval Completion status Anesthesia document: Postop Eval 1 completed: Yes Anesthesia Postop Eval I Summary Anesthesia Postop Eval I Summary: Anesthesia Postop Eval I: Assessment Summary Airway patent Yes 12/12/24 13:08 OBSERVATORY DIRECTOR.PKEL Spontaneous unlabored Yes 12/12/24 13:08 OBSERVATORY DIRECTOR.PKEL respirations Mental status Awake,Calm 12/12/24 13:08 OBSERVATORY DIRECTOR.PKEL nausea No 12/12/24 13:08 OBSERVATORY DIRECTOR.PKEL Vomiting No 12/12/24 13:08 OBSERVATORY DIRECTOR.PKEL Anesthesia Postop Eval I: Fluid Summary Crystalloid volume administer 30 12/12/24 13:08 OBSERVATORY DIRECTOR.PKEL (ml) Colloids volume administered ( ml) Blood Product volume administered (ml) Total IV fluid infused 30 12/12/24 13:08 OBSERVATORY DIRECTOR.PKEL Anesthesia Postop Eval I: Summary Notes Anesthesia Complication No 12/12/24 13:08 OBSERVATORY DIRECTOR.PKEL Anesthesia Complication Comment: Post-operative progress note Anesthesia: Postop Eval II Evaluation Mental status: Awake and Calm Pain Level: 1 nausea: No Vomiting: No Complications Anesthesia Complication: No 12/12/24 1751 dillon MENENDEZ> Date _ Jeferson Breaux MD Cosigner Signature: Date CC: ~ Signed [facility]03-17-2025 Discharge summary [facility] Note Date/Time December 12, 2024 3:5 4pm [facility] Medical Records Department [address] [place] [address] Instructions for Home/Discharge Instructions 12/12/24 1547 MR#: [id number] Acct: [id number] Name: GRACIE BANUELOS Rep #:[id number] : 1965 59 From: Anastacia Bonilla MD [...] DO; Dr. Yrn Kahn DO ~ Signed [facility] Work Phone: 1(186) 760-116303-17-2025 Discharge summary Author [facility] Note Date/Time December 12, 2024 4:5 7pm [facility] Medical Records Department [address] [place] [address] Discharge Summary 12/12/24 1554 MR#: [id number] Acct: [id number] Name: GRACIE BANUELOS Rep #:[id number] : 1965 59 From: Anastacia Bonilla MD PCP: Dr. Misbah Elkins MD Status:ADM I N Location: [place] [address] Providers Date of Admission: 12/04/24 Date of Discharge: 12/12/24 Primary Care Physician: Dr. Misbah Elkins MD Consultations 12/05/24 09:19 Consult: Health Services Coordinator / Pulmonary Medicine Routine Consulting Provider: Intensivists/Pulmonary Med Reason for Consult: respiratory failure EMERGENT Consult: No Notified: Yes Date Notified: 12/05/24 Time Notified: 09:19 Method of Notification: Text 12/09/24 17:42 Consult: Gastroenterology Routine Consulting Provider: [facility] Reason for Consult: dysphagia EMERGENT [...] Self Care Charges/Coding Visit Charges Inpatient E&M: 72648 Disch Hosp >30min 12/12/24 1610 <Electronically signed [...] MD; Dr. Anastacia Bonilla MD ~* Signed [facility] Work Phone: 1(739) 472-208303-17-2025 Discharge summary [facility] Medical Records Department [address] [place] [address] Discharge Summary 12/12/24 1554 MR#: [id number] Acct: [id number] Name: GRACIE BANUELOS Rep #:[id number] : 1965 59 From: Anastacia Bonilla MD PCP: Dr. Misbah Elkins MD Status:ADM I N Location: [place] [address] Providers Date of Admission: 12/04/24 Date of Discharge: 12/12/24 Primary Care Physician: Dr. Misbah Elkins MD Consultations 12/05/24 09:19 Consult: Health Services Coordinator / Pulmonary Medicine Routine Consulting Provider: Intensivists/Pulmonary [...] Self Care Charges/Coding Visit Charges Inpatient E&M: 93549 Disch Hosp >30min 12/12/24 1610 Cosigner Signature [...] MD; Dr. Anastacia Bonilla MD ~* Signed [facility]03-17-2025 Discharge summary [facility] Medical Records Department [address] [place] [address] Instructions for Home/Discharge Instructions 12/12/24 1547 MR#: [id number] Acct: [id number] Name: GRACIE BANUELOS Rep #:[id number] : 1965 59 From: Anastacia Bonilla MD [...] 12/12/24 1554Anastacia Bonilla MD CC: Dr. Misbah Elkins MD; Dr. Aleta Aguayo DO; Dr. Yrn Kahn DO ~ Signed [facility]03-17-[address] [facility]03-17-2025 Consult note Author Guevara Jimenez [facility] Note Date/Time December 12, 2024 1:0 8pm [facility] Medical Records Department [address] [facility] [place] [address] Anesthesia Postop Eval I 12/12/24 1307 MR#: [id number] Acct: [id number] Name: GARCIE BANUELOS Salvatore Rep #:[id number] : 1965 59 From: Guevara Jimenez CRNA PCP: Dr. Misbah Elkins MD Status:ADM I N Y Race: C Location: [place] [address] Anesthesia: Postop Eval I Current Vital Signs [...] CRNA Cosigner Signature: Date CC: ~ Signed [facility] Work Phone: 1(810) 849-971903-17-2025 Progress note Author Marshal Segura [facility] Note Date/Time December 12, 2024 12: 39pm [facility] Medical Records Department [address] [place] [address] Progress Note 12/12/24 1237 MR#: [id number] Acct: [id number] Name: GRACIE BANUELOS Rep #:[id number] : 1965 59 From: Marshal Segura DO PCP: Dr. Misbah Elkins MD Status:ADM I N Location: [place] [address] Progress Note Patient has been n.p.o. for [...] ASA of 3. Visit Charges Inpatient E&M: 73863 Subs Hosp L2 12/12/24 1239 <Electronically signed by Marshal Segura DO> Marshal Segura DO Cosigner Signature (if applicable): CC: ~ Signed [facility] Work Phone: 1(486) 737-783503-17-2025 Consult note Author Jeferson Breaux [facility] Note Date/Time December 12, 2024 12: 15pm [facility] Medical Records Department [address] [place] [address] Pre-Anesthesia Evaluation 12/12/24 1203 MR#: [id number] Acct: [id number] Name: BANUELOSGRACIE Rep #:[id number] : 1965 59 From: Jeferson Breaux MD PCP: Dr. Misbah Elkins MD Status:ADM I N Y Race: C Location: [place] [address] 3-1 ASA Classification* ASA Classification ASA Classification: [...] possible dilation. Anesthesia History Anesthesia History - custom seamstress: Anesthesia History - custom seamstress Hx Hospitalization Yes 08/12/20 11:23 Any Problems [...] sips of water?: Yes PONV PONV - custom seamstress: PONV - custom seamstress Female HX of Motion Sickness HX of N/V After Surgery Non-Smoker Duration of Surgery greater than 60 minutes Number of Risk Factors PONV Score Height & Weight Height & Weight: Anesthesia: Height & Weight Height 5 ft 3 in 12/11/24 13:34 Weight: 60.7 kg 12/12/24 05:02 Body Mass Index (BMI) 23.7 12/12/24 05:02 Respiratory Assessment Respiratory Assessment - custom seamstress: Respiratory Tract Infection Hx - custom seamstress Hx Respiratory Tract Infection No 06/12/21 02:55 STOP Sleep Apnea STOP Sleep Apnea - custom seamstress: STOP Sleep Apnea - custom seamstress Hx Hypertension Yes 12/04/24 20:21 Hx Sleep [...] Tobacco Use History Tobacco Use History - custom seamstress: Tobacco Use History - custom seamstress Tobacco Use Cigarettes 01/22/21 20:43 Smoking Status Heavy Smoker (>10/day) 12/06/24 05:11 Hx Tobacco Use Yes 12/04/24 20:21 Years Smoking Packs Smoked per Day Smoking Cessation Date was within the last 15 years Hx Smoking Cessation Date Hx Smoking Cessation No 12/04/24 20:21 Counseling Hematologic Medial History Hematologic Hx - custom seamstress: 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 Hx of Blood Transfusion No 12/04/24 20:21 [...] confused, unrespo /Reproduction History /Reproductive History - custom seamstress: /Reproductive Hx- custom seamstress Hx Now Gestational Age (in weeks): EDC: [...] Allergy Other Verified 12/04/24 15:55 hydrocodone (From [place]) AdvReac Itching Verified 12/04/24 15:55 Family History [...] MD Cosigner Signature: Date CC: ~ Signed [facility] Work Phone: 1(255) 780-196703-17-2025 Progress note Author Gonzalo Sebastian [facility] Note Date/Time December 12, 2024 11: 29am [facility] Medical Records Department [facility] [place] [address] Progress Note - Health Services Coordinator 12/12/24 1000 MR#: [id number] Acct: [id number] Name: GRACIE BANUELOS Rep #:[id number] : 1965 59 From: Gonzalo Sebastian DO PCP: Dr. Misbah Elkins MD Status:ADM I N Location: [place] [address] Assessment & Plan Assessment/Plan (1) COPD with [...] medicationsas indicated. This note was generated with [employer]ation software. It may contain incorrectwords, spelling, and [...] Affect: anxious Charges/Coding Visit Charges Inpatient E&M: 89209 Subs Hosp L2 12/12/24 1129 <Electronically signed by Gonzalo Sebastian DO> Cosigner Signature (if applicable): CC: ~ Signed [facility] Work Phone: 1(177) 490-649003-17-2025 Consult note [facility] Medical Records Department [address] [place] [address] Anesthesia Postop Eval I 12/12/24 1307 MR#: [id number] Acct: [id number] Name: GRACIE BANUELOS Rep #:[id number] : 1965 59 From: Guevara Jimenez CRNA PCP: Dr. Misbah Elkins MD Status:ADM I N Y Race: C Location: [place] [address] Anesthesia: Postop Eval I Current Vital Signs [...] Eval 1 completed: Yes 12/12/24 1308 y OBSERVATORY DIRECTOR> Date _ Guevara Jimenez OBSERVATORY DIRECTOR Cosigner Signature: Date CC: ~ Signed [facility]03-17-2025 Procedure note [facility] Medical Records Department [address] [place] [address] EGD Report MR#: [id number] Acct: [id number] Name: GRACIE BANUELOS Rep #:[id number] : 1965 59 From: Marshal Segura DO [...] present medications. Procedure Code(s): --- Professional --- 38941, Esophagogastroduodenoscopy, flexible, transoral; with insertion of guide wire followed by passage of dilator(s) through esophagus over guide wire CPT copyright 2021 [employer]. All rights reserved. The codes documented in this report are preliminary and upon senior tax analyst review may be revised to meet current compliance requirements. Marshal Segura DO 12/12/2024 1:07:14 PM This report has been signed electronically. Number of Addenda: 0 Note Initiated On: 12/12/2024 12:40 PM 12/12/24 1307 Date _ Marshal Segura DO Cosigner Signature: Date (if indicated) CC: Dr. Misbah Elkins MD; Marshal Segura DO ~ Date Dictated: 12/12/24 1240 Date Transcribed: Charge Entry: RF Signed [facility]03-17-2025 Procedure note [facility] Medical Records Department [address] [place] [address] Operative Report - CC Letter MR#: [id number] Acct: [id number] Name: GRACIE BANUELOS Rep #:[id number] : 1965 59 From: Marshal Segura DO PCP: Dr. Misbah Elkins MD Status:ADM I N 12/12/2024 Misbah Elkins [address] [place] [address] Re : Upper GI endoscopy procedure for [...] ~ Date Dictated: 12/12/24 1240 Date Transcribed: Charge Entry: RF Signed [facility]03-17-2025 Progress note [facility] Medical Records Department [address] [place] [address] Progress Note 12/12/24 1237 MR#: [id number] Acct: [id number] Name: GRACIE BANUELOS Rep #:[id number] : 1965 59 From: Marshal Segura DO PCP: Dr. Misbah Elkins MD Status:ADM I N Location: [place] [address] Progress Note Patient has been n.p.o. for [...] ASA of 3. Visit Charges Inpatient E&M: 24056 Subs Hosp L2 12/12/24 1239 Marshal Friend DO Cosigner Signature (if applicable): CC: ~ Signed [facility]03-17-2025 Consult note [facility] Medical Records Department [address] [place] [address] Pre-Anesthesia Evaluation 12/12/24 1203 MR#: [id number] Acct: [id number] Name: GRACIE BANUELOS Rep #:[id number] : 1965 59 From: Jeferson Breaux MD PCP: Dr. Misbah Elkins MD Status:ADM I N Y Race: C Location: [place] [address] 3-1 ASA Classification* ASA Classification ASA Classification: [...] possible dilation. Anesthesia History Anesthesia History - custom seamstress: Anesthesia History - custom seamstress Hx Hospitalization Yes 08/12/20 11:23 Any Problems [...] sips of water?: Yes PONV PONV - custom seamstress: PONV - custom seamstress Female HX of Motion Sickness HX of N/V After Surgery Non-Smoker Duration of Surgery greater than 60 minutes Number of Risk Factors PONV Score Height & Weight Height & Weight: Anesthesia: Height & Weight Height 5 ft 3 in 12/11/24 13:34 Weight: 60.7 kg 12/12/24 05:02 Body Mass Index (BMI) 23.7 12/12/24 05:02 Respiratory Assessment Respiratory Assessment - custom seamstress: Respiratory Tract Infection Hx - custom seamstress Hx Respiratory Tract Infection No 06/12/21 02:55 STOP Sleep Apnea STOP Sleep Apnea - custom seamstress: STOP Sleep Apnea - custom seamstress Hx Hypertension Yes 12/04/24 20:21 Hx Sleep [...] Tobacco Use History Tobacco Use History - custom seamstress: Tobacco Use History - custom seamstress Tobacco Use Cigarettes 01/22/21 20:43 Smoking Status Heavy Smoker (>10/day) 12/06/24 05:11 Hx Tobacco Use Yes 12/04/24 20:21 Years Smoking Packs Smoked per Day Smoking Cessation Date was within the last 15 years Hx Smoking Cessation Date Hx Smoking Cessation No 12/04/24 20:21 Counseling Hematologic Medial History Hematologic Hx - custom seamstress: 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 Hx of Blood Transfusion No 12/04/24 20:21 [...] confused, unrespo /Reproduction History /Reproductive History - custom seamstress: /Reproductive Hx- custom seamstress Hx Now Gestational Age (in weeks): EDC: [...] Allergy Other Verified 12/04/24 15:55 hydrocodone (From [place]) AdvReac Itching Verified 12/04/24 15:55 Family History [...] MD Cosigner Signature: Date CC: ~ Signed [facility]03-17-2025 Progress note [facility] Medical Records Department [address] [place] [address] Progress Note - Health Services Coordinator 12/12/24 1000 MR#: [id number] Acct: [id number] Name: VINGRACIE S Rep #:[id number] : 1965 59 From: Gonzalo Sebastian DO PCP: Dr. Misbah Elkins MD Status:ADM I N Location: [place] [address] Assessment & Plan Assessment/Plan (1) COPD with [...] medicationsas indicated. This note was generated with [employer] dictation software. It may contain incorrectwords, spelling, [...] Affect: anxious Charges/Coding Visit Charges Inpatient E&M: 23124 Subs Hosp L2 12/12/24 1129 Cosigner Signature (if applicable): CC: ~ Signed [facility]03-16-2025 Progress note Author Anastacia [facility] Note Date/Time December 11, 2024 11: [address] [place] [address] System Medical Records Department [address] [place] [address] Progress Note 12/11/24 1134 MR#: [id number] Acct: [id number] Name: GRACIE BANUELOS Rep #:[id number] : 1965 59 From: Anastacia Bonilla MD PCP: Dr. Misbah Elkins MD Status:ADM I N Location: [place] [address] Subjective Subjective Patient seen and examined. She [...] prophylaxis: lovenox Charges/Coding Visit Charges Inpatient E&M: 93996 Subs Hosp L2 12/11/24 1150 <Electronically signed by Anastacia Bonilla MD> Anastacia Bonilla MD Cosigner Signature (if applicable): CC: ~ Signed [facility] Work Phone: 1(188) 962-609803-16-2025 Progress note [facility] Medical Records Department [address] [place] [address] Progress Note 12/11/24 1134 MR#: [id number] Acct: [id number] Name: GRACIE BANUELOS Rep #:[id number] : 1965 59 From: Anastacia Bonilla MD PCP: Dr. Misbah Elkins MD Status:ADM I N Location: [place] [address] Subjective Subjective Patient seen and examined. She [...] prophylaxis: lovenox Charges/Coding Visit Charges Inpatient E&M: 86499 Subs Hosp L2 12/11/24 1150 Anastacia Bnoilla MD Cosigner Signature (if applicable): CC: ~ Signed [facility]03-15-2025 Progress note Author [facility] Note Date/Time December 10, 2024 12: 56pm [facility] Medical Records Department [address] [place] [address] Progress Note 12/10/24 1251 MR#: [id number] Acct: [id number] Name: GRACIE BANUELOS Rep #:[id number] : 1965 59 From: Anastacia Bonilla MD PCP: Dr. Misbah Elkins MD Status:ADM I N Location: [place] [address] Subjective Subjective Patient seen and examined. She [...] prophylaxis: lovenox Charges/Coding Visit Charges Inpatient E&M: 16931 Subs Hosp L2 12/10/24 1256 <Electronically signed by Anastacia Bonilla MD> Anastacia Bonilla MD Cosigner Signature (if applicable): CC: ~ Signed [facility] Work Phone: [phone]) 787-512603-15-2025 Progress note [facility] Medical Records Department [address] [place] [address] Progress Note 12/10/24 1251 MR#: [id number] Acct: [id number] Name: GRACIE BANUELOS Rep #:[id number] : 1965 59 From: Anastacia Bonilla MD PCP: Dr. Misbah Elkins MD Status:ADM I N Location: [place] [address] Subjective Subjective Patient seen and examined. She [...] prophylaxis: lovenox Charges/Coding Visit Charges Inpatient E&M: 66717 Subs Hosp L2 12/10/24 1256 Anastacia Bonilla MD Cosigner Signature (if applicable): CC: ~ Signed [facility]03-14-2025 Progress note [facility] Note Date/Time December 09, 2024 4:3 3pm [facility] Medical Records Department [address] [place] [address] Progress Note 12/09/24 1351 MR#: [id number] Acct: [id number] Name: GRACIE BANUELOS Rep #:[id number] : 1965 59 From: Anastacia Bonilla MD PCP: Dr. Misbah Elkins MD Status:ADM I N Location: [place] [address] Subjective Subjective Patient seen and examined. She [...] (MDRD) Non-Af 78, BUN/Creatinine Ratio 40.8 H, Evoqhoi180 H, Calcium 9.8 Micro: Microbiology 12/07/24 14:40 [...] prophylaxis: lovenox Charges/Coding Visit Charges Inpatient E&M: 97603 Subs Hosp L2 12/09/24 1633 <Electronically signed by Anastacia Bonilla MD> Anastacia Bonilla MD Cosigner Signature (if applicable): CC: ~ Signed [facility] Work Phone: [phone]) 437-214803-14-2025 Progress note [facility] Medical Records Department [address] [place] [address] Progress Note 12/09/24 1351 MR#: [id number] Acct: [id number] Name: GRACIE BANUELOS Rep #:[id number] : 1965 59 From: Anastacia Bonilla MD PCP: Dr. Misbah Elkins MD Status:ADM I N Location: [place] [address] Subjective Subjective Patient seen and examined. She [...] (MDRD) Non-Af 78, BUN/Creatinine Ratio 40.8 H, [id number] H, Calcium 9.8 Micro: Microbiology 12/07/24 14:40 [...] prophylaxis: lovenox Charges/Coding Visit Charges Inpatient E&M: 08384 Subs Hosp L2 12/09/24 1633 Anastacia Bonilla MD Cosigner Signature (if applicable): CC: ~ Signed [facility]03-14-2025 Progress note Author Gonzalo Sebastian [facility] Note Date/Time December 09, 2024 11: 16am [facility] Medical Records Department [address] [place] [address] Progress Note - Health Services Coordinator 12/09/24 0809 MR#: [id number] Acct: [id number] Name: GRACIE BANUELOS Rep #:[id number] : 1965 59 From: Gonzalo Sebastian DO PCP: Dr. Misbah Elkins MD Status:ADM I N Location: [place] [address] Assessment & Plan Assessment/Plan (1) COPD with [...] medicationsas indicated. This note was generated with [employer] dictation software. It may contain incorrectwords, spelling, [...] Affect: anxious Charges/Coding Visit Charges Inpatient E&M: 36489 Subs Hosp L2 12/09/24 1116 <Electronically signed by Gonzalo Sebastian DO> Cosigner Signature (if applicable): CC: ~ Signed [facility] Work Phone: [phone]) 131-363403-14-2025 Progress note [facility] Medical Records Department [address] [place] [address] Progress Note - Health Services Coordinator 12/09/24 0809 MR#: [id number] Acct: [id number] Name: GRACIE BANUELOS Rep #:[id number] : 1965 59 From: Gonzalo Sebastian DO PCP: Dr. Misbah Elkins MD Status:ADM I N Location: [place] [address] Assessment & Plan Assessment/Plan (1) COPD with [...] medicationsas indicated. This note was generated with Fame[employer] dictation software. It may contain incorrectwords, spelling, [...] Affect: anxious Charges/Coding Visit Charges Inpatient E&M: 73006 Subs Hosp L2 12/09/24 1116 Cosigner Signature (if applicable): CC: ~ Signed [facility]03-13-2025 Progress note Author Yrn Kahn [facility] Note Date/Time December 08, 2024 4:2 3pm [facility] Medical Records Department [address] [place] [address] Progress Note - Hospitalist 12/08/24 1620 MR#: [id number] Acct: [id number] Name: GRACIE BANUELOS Rep #:[id number] : 1965 59 From: Yrn Kahn DO PCP: Dr. Misbah Elkins MD Status:ADM I N Location: [place] [address] Reason for Visit Reason for Visit: Diagnoses [...] 35 minutes Charges/Coding Visit Charges Inpatient E&M: 42823 Subs Hosp L2 12/08/24 1623 <Electronically signed by Yrn Kahn DO> Cosigner Signature (if applicable): CC: ~ Signed [facility] Work Phone: [phone] 401-578803-13-2025 Progress note [facility] Medical Records Department [address] [place] [address] Progress Note - Hospitalist 12/08/24 1620 MR#: [id number] Acct: [id number] Name: GRACIE BANUELOS Rep #:[id number] : 1965 59 From: Yrn Kahn DO PCP: Dr. Misbah Elkins MD Status:ADM I N Location: [place] [address] Reason for Visit Reason for Visit: Diagnoses [...] 35 minutes Charges/Coding Visit Charges Inpatient E&M: 12233 [facility] Hosp L2 12/08/24 1625 Cosigner Signature (if applicable): CC: ~ Signed [facility]03-13-2025 Procedure note [facility] Speech Pathology [address] [place] [address] Modified Barium Swallow Study MR#: [id number] Acct: [id number] Name: GRACIE BANUELOS Rep #:[id number] : 1965 59 From: Maksim Ramos, [facility]-FOREST NURSERY SUPERVISOR Modified Barium Swallow Patient Information Study Date: [...] History: Pt presented to the ED at [facility] on 12/04/2024 with the chief [...] Result: 3= enters airways/above vocal folds/not ejected [place] Thick Liquid via small single sip: cup: [...] Status Active ST Patient: Active Contact Information [facility] Speech Therapy:: Maksim Up M.A. [employer]-FOREST NURSERY SUPERVISOR? Speech-Language Pathologist?? [facility] [address] [place] [address]? [email or web address]?? [phone] 12/08/24 1525 Yulissa CCC-FOREST NURSERY SUPERVISOR> Date/Time Maksim Up M.A. [employer]-FOREST NURSERY SUPERVISOR Co-Signature Required for all Medicare patients Date/Time Co-Signature CC: ~ [facility]03-13-2025 Progress note Author Gonzalo Sebastian [facility] Note Date/Time December 08, 2024 10: 27am [facility] Medical Records Department [address] [place] [address] Progress Note - Health Services Coordinator 12/08/24 0944 MR#: [id number] Acct: [id number] Name: GRACIE BANUELOS Rep #:[id number] : 1965 59 From: Gonzalo Sebastian DO PCP: Dr. Misbah Elkins MD Status:ADM I N Location: [place] [address] Assessment & Plan Assessment/Plan (1) COPD with [...] medicationsas indicated. This note was generated with FameBit dictation software. It may contain incorrectwords, spelling, [...] Affect: anxious Charges/Coding Visit Charges Inpatient E&M: 06747 Subs Hosp L2 12/08/24 1027 <Electronically signed by Gonzalo Sebastian DO> Cosigner Signature (if applicable): CC: ~ Signed [facility] Work Phone: [phone]) 904-125003-13-2025 Progress note [facility] Medical Records Department [address] [place] [address] Progress Note - Health Services Coordinator 12/08/24 0944 MR#: [id number] Acct: [id number] Name: GRACIE BANUELOS Rep #:[id number] : 1965 59 From: Gonzalo Sebastian DO PCP: Dr. Misbah Elkins MD Status:ADM I N Location: [place] [address] Assessment & Plan Assessment/Plan (1) COPD with [...] medicationsas indicated. This note was generated with [employer] software. It may contain incorrectwords, spelling, and [...] Affect: anxious Charges/Coding Visit Charges Inpatient E&M: 44669 Subs Hosp L2 12/08/24 1027 Cosigner Signature (if applicable): CC: ~ Signed [facility]03-12-2025 Progress note Author Yrn [facility] Note Date/Time December 07, 2024 5:4 7pm [facility] Medical Records Department [address] [place] [address] Progress Note - Hospitalist 12/07/24 1746 MR#: [id number] Acct: [id number] Name: GRACIE BANUELOS Rep #:[id number] : 1965 59 From: Yrn Kahn DO PCP: Dr. Misbah Elkins MD Status:ADM I N Location: [place] [address] Reason for Visit Reason for Visit: Diagnoses [...] 35 minutes Charges/Coding Visit Charges Inpatient E&M: 23558 Subs Hosp L2 12/07/24 1747 <Electronically signed by Yrn Kahn DO> Cosigner Signature (if applicable): CC: ~ Signed [facility] Work Phone: 1(909) 573-654303-12-2025 Progress note [facility] Medical Records Department [address] [place] [address] Progress Note - Hospitalist 12/07/24 1746 MR#: [id number] Acct: [id number] Name: GRACIE BANUELOS Rep #:[id number] : 1965 59 From: Yrn Kahn DO PCP: Dr. Misbah Elkins MD Status:ADM I N Location: [place] [address] Reason for Visit Reason for Visit: Diagnoses [...] 35 minutes Charges/Coding Visit Charges Inpatient E&M: 66076 Subs Hosp L2 12/07/24 7447 Cosigner Signature (if applicable): CC: ~ Signed [facility]03-12-2025 Progress note Author Gonzalo Sebastian [facility] Note Date/Time December 07, 2024 12: 23pm [facility] Medical Records Department [address] [place] [address] Progress Note - Health Services Coordinator 12/07/24 0959 MR#: [id number] Acct: [id number] Name: GRACIE BANUELOS Rep #:[id number] : 1965 59 From: Gonzalo Sebastian DO PCP: Dr. Misbah Elkins MD Status:ADM I N Location: [place] [address] Assessment & Plan Assessment/Plan (1) COPD with [...] medicationsas indicated. This note was generated with FameBit dictation software. It may contain incorrectwords, spelling, [...] (Auto) 88.4 H, Lymph % (Auto) 4.5L, [place] % (Auto) 6.0, Eos % (Auto) 0.0, [...] Affect: anxious Charges/Coding Visit Charges Inpatient E&M: 37698 Subs Hosp L2 12/07/24 1223 <Electronically signed by Gonzalo Sebastian DO> Cosigner Signature (if applicable): CC: ~ Signed [facility] Work Phone: [phone] 397-749703-12-2025 Progress note [facility] Medical Records Department [address] [place] [address] Progress Note - Health Services Coordinator 12/07/24 0959 MR#: [id number] Acct: [id number] Name: GRACIE BANUELOS Rep #:[id number] : 1965 59 From: Gonzalo Sebastian DO PCP: Dr. Misbah Elkins MD Status:ADM I N Location: [place] [address] Assessment & Plan Assessment/Plan (1) COPD with [...] medicationsas indicated. This note was generated with FameBit dictation software. It may contain incorrectwords, spelling, [...] (Auto) 88.4 H, Lymph % (Auto) 4.5L, [place] % (Auto) 6.0, Eos % (Auto) 0.0, [...] Affect: anxious Charges/Coding Visit Charges Inpatient E&M: 34669 Subs Hosp L2 12/07/24 1223 Cosigner Signature (if applicable): CC: ~ Signed [facility]03-11-2025 Progress note Author Yrn Kahn [facility] Note Date/Time December 06, 2024 8:2 6pm [facility] Medical Records Department [address] [place] [address] Progress Note - Hospitalist 12/06/242023 MR#: [id number] Acct: [id number] Name: GRACIE BANEULOS Rep #:[id number] : 1965 59 From: Yrn Kahn DO PCP: Dr. Misbah Elkins MD Status:ADM I N Location: [place] [address] Reason for Visit Reason for Visit: Diagnoses [...] (Auto) 88.4 H, Lymph % (Auto) 4.5L, [place] % (Auto) 6.0, Eos % (Auto) 0.0, [...] 35 minutes Charges/Coding Visit Charges Inpatient E&M: 01086 Subs Hosp L2 12/06/242025 <Electronically signed by Yrn Kahn DO> Cosigner Signature (if applicable): CC: ~ Signed [facility] Work Phone: 1([phone]) 623-614803-11-2025 Progress note Author Yrn Kahn [facility] Note Date/Time December 06, 2024 8:2 4pm [facility] Medical Records Department [address] [place] [address] Progress Note - Hospitalist 12/05/241943 MR#: [id number] Acct: [id number] Name: GRACIE BANUELOS Rep #:[id number] : 1965 59 From: Yrn Kahn DO PCP: Dr. Misbah Elkins MD Status:ADM I N Location: [place] [address] Reason for Visit Reason for Visit: Diagnoses [...] 89.0 H, Lymph % (Auto) 5.1 L, [place] % (Auto) 4.0, Eos % (Auto) 0.1, [...] 50 minutes Charges/Coding Visit Charges Inpatient E&M: 84750 Subs Hosp L3 12/06/242023 <Electronically signed by Yrn Kahn DO> Cosigner Signature (if applicable): CC: ~ Signed [facility] Work Phone: 1(900) 520-277503-11-2025 Progress note [facility] Medical Records Department [address] [place] [address] Progress Note - Hospitalist 12/06/242023 MR#: [id number] Acct: [id number] Name: GRACIE BANUELOS Rep #:[id number] : 1965 59 From: Yrn Kahn DO PCP: Dr. Misbah Elkins MD Status:ADM I N Location: [place] [address] Reason for Visit Reason for Visit: Diagnoses [...] (Auto) 88.4 H, Lymph % (Auto) 4.5L, [place] % (Auto) 6.0, Eos % (Auto) 0.0, [...] 35 minutes Charges/Coding Visit Charges Inpatient E&M: 01559 [facility] Hosp L2 12/06/242025 Cosigner Signature (if applicable): CC: ~ Signed [facility]03-11-2025 Progress note [facility] Medical Records Department [address] [place] [address] Progress Note - Hospitalist 12/05/241943 MR#: [id number] Acct: [id number] Name: GRACIE BANUELOS Rep #:[id number] : 1965 59 From: Yrn Kahn DO PCP: Dr. Misbah Elkins MD Status:ADM I N Location: [place] [address] Reason for Visit Reason for Visit: Diagnoses [...] 89.0 H, Lymph % (Auto) 5.1 L, [place] % (Auto) 4.0, Eos % (Auto) 0.1, [...] 50 minutes Charges/Coding Visit Charges Inpatient E&M: 43777 Subs Hosp L3 12/06/242023 Cosigner Signature (if applicable): CC: ~ Signed [facility]03-11-2025 Progress note Author Gonzalo Sebastian [facility] Note Date/Time December 06, 2024 11: 38am [facility] Medical Records Department [address] [place] [address] Progress Note - Health Services Coordinator 12/06/24 1134 MR#: [id number] Acct: [id number] Name: GRACIE BANUELOS Rep #:[id number] : 1965 59 From: Gonzalo Sebastian DO PCP: Dr. Misbah Elkins MD Status:ADM I N Location: [place] [address] Assessment & Plan Assessment/Plan (1) COPD with [...] medicationsas indicated. This note was generated with FameBit dictation software. It may contain incorrectwords, spelling, [...] (Auto) 88.4 H, Lymph % (Auto) 4.5L, [place] % (Auto) 6.0, Eos % (Auto) 0.0, [...] Affect: anxious Charges/Coding Visit Charges Inpatient E&M: 53220 Subs Hosp L2 12/06/24 1130 <Electronically signed by Gonzalo Sebastian DO> Cosigner Signature (if applicable): CC: ~ Signed [facility] Work Phone: 1(128) 249-935703-11-2025 Progress note [facility] Medical Records Department [address] [place] [address] Progress Note - Health Services Coordinator 12/06/24 1134 MR#: [id number] Acct: [id number] Name: GRACIE BANUELOS Rep #:[id number] : 1965 59 From: Gonzalo Sebastian DO PCP: Dr. Misbah Elkins MD Status:ADM I N Location: [place] [address] Assessment & Plan Assessment/Plan (1) COPD with [...] medicationsas indicated. This note was generated with [employer]Bit dictation software. It may contain incorrectwords, spelling, [...] (Auto) 88.4 H, Lymph % (Auto) 4.5L, [place] % (Auto) 6.0, Eos % (Auto) 0.0, [...] Affect: anxious Charges/Coding Visit Charges Inpatient E&M: 50223 Subs Hosp L2 12/06/24 1138 Cosigner Signature (if applicable): CC: ~ Signed [facility]03-10-2025 Consult note Author Gonzalo Sebastian [facility] Note Date/Time December 05, 2024 1:2 4pm [facility] Medical Records Department [address] [place] [address] Consultation - Health Services Coordinator 12/05/24 1314 MR#: [id number] Acct: [id number] Name: GRACIE BANUELOS Rep #:[id number] : 1965 59 From: Gonzalo Sebastian DO PCP: Dr. Misbah Elkins MD Status:ADM I N Location: [place] [address] Assessment & Plan Assessment/Plan (1) COPD with [...] should be noted that the patient had [facility] admission in October 2022 in the setting of a panic attack with generalized anxiety disorder leading to acute decompensation in her respiratory status. 2. Chronic tobacco dependency/bipolar disorder/depression/anxiety/chronic pancreatitis Complicates care, management, recovery and prognosis. Continue home medicationsas indicated. This note was generated with [employer] dictation software. It may contain incorrectwords, spelling, [...] felt as if she was being suffocated. [facility] Medical History Pancreatic stones HLD (hyperlipidemia) History [...] Allergy Other Verified 12/04/24 15:55 hydrocodone (From [place]) AdvReac Itching Verified 12/04/24 15:55 Family History [...] 80.5 H, Lymph % (Auto) 6.8 L, [place] % (Auto) 10.4 H, Eos % (Auto) [...] 89.0 H, Lymph % (Auto) 5.1 L, [place] % (Auto) 4.0, Eos % (Auto) 0.1, [...] Location: [facility] Charges/Coding Visit Charges Inpatient E&M: 63309 Init Hosp L3 12/05/24 1324 <Electronically signed by Gonzalo Sebastian DO> Cosigner Signature (if applicable): CC: Dr. Misbah Elkins MD~ Signed [facility] Work Phone: 1(877) 987-171503-10-2025 Consult note [facility] Medical Records Department [address] [place] [address] Consultation - Health Services Coordinator 12/05/24 1314 MR#: [id number] Acct: [id number] Name: GRACIE BANUELOS Rep #:[id number] : 1965 59 From: Gonzalo Sebastian DO PCP: Dr. Misbah Elkins MD Status:ADM I N Location: [place] [address] Assessment & Plan Assessment/Plan (1) COPD with [...] medicationsas indicated. This note was generated with [employer] Technologies[employer] software. It may contain incorrectwords, spelling, and [...] felt as if she was being suffocated. [facility] Medical History Pancreatic stones HLD (hyperlipidemia) History [...] Allergy Other Verified 12/04/24 15:55 hydrocodone (From [place]) AdvReac Itching Verified 12/04/24 15:55 Family History [...] 80.5 H, Lymph % (Auto) 6.8 L, [place] % (Auto) 10.4 H, Eos % (Auto) [...] 89.0 H, Lymph % (Auto) 5.1 L, [place] % (Auto) 4.0, Eos % (Auto) 0.1, [...] Location: [facility] Charges/Coding Visit Charges Inpatient E&M: 53319 Init Hosp L3 12/05/24 1324 Cosigner Signature (if applicable): CC: Dr. Misbah Elkins MD~ Signed [facility]03-10-2025 Telephone encounter Note* Telephone Encounter - Juan Senior APRN.CNP - 12/05/2024 10:49 AM EDT Called to follow up with patient after EUS on 12/01. No answer, left voicemail with call back number. [facility] Work Phone: 1(362) 522-934603-10-2025 Miscellaneous Notes* Telephone Encounter - Juan Senior APRN.CNP - 12/05/2024 10:49 AM EDT Called to follow up with patient after EUS on 12/01. No answer, left voicemail with call back number. documented [facility] History and physical note Author Aleta Aguayo [facility] Note Date/Time December 04, 2024 9:09 pm [facility] Medical Records Department [address] [place] [address] H&P Exam - Hospitalist 12/04/24 1804 MR#: [id number] Acct: [id number] Name: GRACIE BANUELOS Rep #:[id number] : 1965 59 From: Aleta Aguayo DO PCP: Dr. Misbah Elkins MD Status:ADM I N Location: [place] [address] HPI - General General Date of Admission: 12/04/24 Date of Service: 12/04/24 Chief Complaint: Shortness of Breath HPI Narrative GRACIE BANUELOS, is a 59 F who presented to the ED at [facility] on 12/04/2024 with the chief complaint of SOB. Pt has a h/o chronic pancreatitis and had a pancreatic block done at [facility] Thu of last week as a [...] waiting abdominal pain despite procedure done at [facility] and has follow-up with them upcoming. She has followed up with pulmonary medicine here previously and her FEV1 on [facility] recent PFTs is 33% predicted. Again [...] emergency department request for admission was made. [facility] Medical History Pancreatic stones HLD (hyperlipidemia) History [...] Allergy Other Verified 12/04/24 15:55 hydrocodone (From [place]) AdvReac Itching Verified 12/04/24 15:55 Family History [...] 80.5 H, Lymph % (Auto) 6.8 L, [place] % (Auto) 10.4 H, Eos % (Auto) [...] of admission Charges/Coding Visit Charges Inpatient E&M: 71797 Init Hosp L2 12/04/242108 <Electronically signed by Aleta Aguayo DO> Cosigner Signature (if applicable): CC: Dr. Misbah Elkins MD; Dr. Aleta Aguayo DO~ Signed [facility] Work Phone: 1(629) 343-625403-09-2025 History and physical note [facility] Medical Records Department [address] [place] [address] H&P Exam - Hospitalist 12/04/24 1804 MR#: [id number] Acct: [id number] Name: GRACIE BANUELOS Rep #:[id number] : 1965 59 From: Aleta Aguayo DO PCP: Dr. Misbah Elkins MD Status:ADM I N Location: [address] HPI - General General Date of Admission: 12/04/24 Date of Service: 12/04/24 Chief Complaint: Shortness of Breath HPI Narrative GRACIE BANUELOS, is a 59 F who presented to the ED at [facility] on 12/04/2024 with the chief complaint of SOB.Pt has a h/o chronic pancreatitis and had a pancreatic block done at [facility] Thu of last week as a [...] still waiting abdominal pain despiteprocedure done at [facility] and has follow-up with them upcoming. She has followed up with pulmonary medicine here previously and her FEV1 on [facility] recent PFTs is 33% predicted. Again [...] emergency department request for admission was made. [facility] Medical History Pancreatic stones HLD (hyperlipidemia) History [...] Allergy Other Verified 12/04/24 15:55 hydrocodone (From [place]) AdvReac Itching Verified 12/04/24 15:55 Family History [...] 80.5 H, Lymph % (Auto) 6.8 L, [place] % (Auto) 10.4 H, Eos % (Auto) [...] of admission Charges/Coding Visit Charges Inpatient E&M: 93376 Init Hosp L2 12/04/242108 Cosigner Signature (if applicable): CC: Dr. Misbah Elkins MD; Dr. Aleta Aguayo, DO~ Signed [facility]03-09-2025 Discharge summary Author Franco Inman [facility] Note Date/Time December 04, 2024 6:46 pm [facility] Medical Records Department [address] [place] [address] Emergency Department Summary 12/04/24 MR#: [id number] Acct: [id number] Name: GRACIE BANUELOS Rep #:[id number] : 1965 59 From: Franco Inman MD PCP: Dr. Misbah Elkins MD Status:ADM I N Location: [place] [address] HPI History of Present Illness Chief Complaint: [...] had a pancreatic block done at the [facility] was discharged the same day. She [...] Allergy Other Verified 12/04/24 15:55 hydrocodone (From [place]) AdvReac Itching Verified 12/04/24 15:55 Family History [...] Back nontender. Moving all 4 extremities. Normal magnetic prospecting supervisor strength. Normal dorsi plantarflexion. Calves are nontender [...] 80.5 H Lymph % (Auto) 6.8 L [place] % (Auto) 10.4 H Eos % (Auto) [...] No acute airspace abnormality. Emphysema. Reading Location: [facility] Chest x-ray, 2 views, AP [...] rate of 121. No acute signs of [place] or ischemia. No dysrhythmia. Discharge Plan Dx/Rx/DC Orders Clinical Impression: Viral URI, COPD exacerbation, Hypoxia, Chronic pancreatitis Disposition Disposition: Acute Care Hospital [facility] What to do if you have Problems For any increased pain, shortness of breath, bleeding, nausea or vomiting, chestpain, or any unexpected problems, contact your Primary Care Provider. Call [facility] ([phone]) or report to the closest Emergency Room. Call 911 if necessary. 12/04/24 0940 <Electronically signed by Franco Inman MD> Cosigner Signature (if applicable): CC: Dr. Misbah Elkins MD ~ Signed [facility] Work Phone: 1(661) 710-897903-09-2025 Evaluation note* Diagnosis Onset Date Resolution Status Admit Date Acute hypoxic respiratory failure acute December 04, 2024 6:03pm Pulmonary nodule acute November 6:03pm Stenosis of left subclavian artery acute December 04, 2024 6:03pm Chronic pancreatitis chronic [facility] 2024 6:03pm COPD with acute exacerbation chronic December 04, 2024 6:03pm [facility] Work Phone: 1(600) 433-572303-09-2025 Evaluation note* Diagnosis Onset Date Resolution Status [...] 23, 2024 9:59am Anxiety and depression chronic [facility] 2024 9:59am Asthma chronic December 23 9:59am Chronic pancreatitis chronic [facility] 2024 9:59am Chronic respiratory failure with hypoxia chronic December 23, 2024 9:59am COPD (chronic obstructive pulmonary disease) chronic December 23, 2 025 9:59am Smoking greater than 30 pack years chronic December 23, 2024 9:59am [facility] Work Phone: 1([phone]) 970-293003-09-2025 Evaluation note* Diagnosis Onset Date Resolution Status [...] 2024 9:59am Anxiety and depression chronic [facility] 2024 9:59am Asthma chronic December 23 9:59am [...] years chronic February 08, 2025 1 :07pm [place] Work Phone: 1(174) 302-755103-09-2025 Evaluation note* Diagnosis Onset Date Resolution Status [...] 2024 9:59am Anxiety and depression chronic [facility] 2024 9:59am Asthma chronic December 23 9:59am [...] pack years chronic March 13, 2025 11:28pm [facility] Work Phone: 1(300) 881-316203-09-2025 Evaluation note* Diagnosis Onset Date Resolution Status Admit Date COPD with acute exacerbation resolve d December 04, 2024 6:03pm Acute hypoxic respiratory failure inactive December 04, 2024 6:03pm Chronic pancreatitis inactive [facility] 2024 6:03pm Pulmonary nodule inactive November 6:03pm Stenosis of left subclavian artery inactive December 04, 2024 6:03pm Dysphagia acute December 16 2:38pm Chronic pancreatitis inactive [facility] h 2024 2:38pm Acute cholecystitis acute December 23, 2024 9:59am Alcoholic hepatitis chronic December 23, 2024 9:59am Anxiety and depression chronic [facility] h 2024 9:59am Asthma chronic December 23 9:59am Chronic pancreatitis chronic [facility] 2024 9:59am Chronic respiratory failure with hypoxia chronic December 23, 2024 9:59am COPD (chronic obstructive pulmonary disease) chronic December 23, 2 9:59am Smoking greater than 30 pack years [...] pack years chronic March 13, 2025 11:28pm [facility] Work Phone: 1(649) 633-468603-09-2025 Radiology Diagnostic study note [facility] Imaging Services [address] [place] [address] CTA Chest W/WO Contrast MR#: [id number] Acct: [id number] Name: GRACIE BANUELOS Rep #: [id number] : 1965 F 59 From: Jay Juarez DO PCP: Dr. Misbah Elkins MD Status: ADM I N Study:CTA Chest W/WO Contrast Date of Exam: 12/04/24 Exam# [id number] Ordering Dr: Kaitlin Aguayo DO PROCEDURE: CTA [...] use of iterative reconstruction technique). Reading Location: [facility] CC: Dr. Misbah Elkins MD; Dr. Aleta Aguayo, DO ~ Charge Entry: Signed [facility]03-09-2025 Discharge summary [facility] Medical Records Department [address] [place] [address] Emergency Department Summary 12/04/24 MR#: [id number] Acct: [id number] Name: GRACIE BANUELOS Rep #:[id number] : 1965 59 From: Franco Inman MD PCP: Dr. Misbah Elkins MD Status:ADM I N Location: [place] [address] HPI History of Present Illness Chief Complaint: [...] had a pancreatic block done at the [facility] was discharged the same day. Sheis [...] Allergy Other Verified 12/04/24 15:55 hydrocodone (From [place]) AdvReac Itching Verified 12/04/24 15:55 Family History [...] Back nontender. Moving all 4 extremities. Normal magnetic prospecting supervisor strength. Normal dorsi plantarflexion. Calves are nontender [...] 80.5 H Lymph % (Auto) 6.8 L [place] % (Auto) 10.4 H Eos % (Auto) [...] No acute airspace abnormality. Emphysema. Reading Location: [facility] Chest x-ray, 2 views, AP [...] rate of 121. No acute signs of [place] or ischemia. No dysrhythmia. Discharge Plan Dx/Rx/DC Orders Clinical Impression: Viral URI, COPD exacerbation, Hypoxia, Chronic pancreatitis Disposition Disposition: Acute Care [facility] What to do if you have Problems For any increased pain, shortness of breath, bleeding, nausea or vomiting, chestpain, or any unexpected problems, contact your Primary Care Provider. Call [facility] ([phone]) or report tothe closest Emergency Room. Call 911 if necessary. 12/04/24 1846 Cosigner Signature (if applicable): CC: Dr. Misbah Elkins MD ~ Signed [facility]03-09-2025 Radiology Diagnostic study note [facility] Imaging Services [address] [place] [address] Chest PA and Lateral MR#: [id number] Acct: [id number] Name: GRACIE BANUELOS Rep #: [id number] : 1965 F 59 From: Jay Juarez DO PCP: Dr. Misbah Elkins MD Status: REG E R Study:Chest PA and Lateral Date of Exam: 12/04/24 Exam# [id number] Ordering Dr: Eam Imnan MD PROCEDURE: CHEST PA AND LATERAL REASON FOR EXAM: Cough, hypoxia TECHNIQUE: Frontal and lateral views of the chest. COMPARISON: 01/02/2024 FINDINGS: Cardiomediastinal silhouette is within normal limits. No focal consolidation, sizeable pleural effusion or pneumothorax. Moderate emphysema. RAD/Chest PA and Lateral IMPRESSION: No acute airspace abnormality. Emphysema. Reading Location: [facility] CC: Dr. Misbah Elkins MD; Dr. Franco Inman MD ~ Charge Entry: Signed [facility]03-09-2025 Discharge summary Author Franco nIman [facility] Note Date/Time December 04, 2024 6:46 pm [facility] Medical Records Department [address] [place] [address] Emergency Department Summary 12/04/24 MR#: [id number] Acct: [id number] Name: GRACIE BANUELOS Rep #:[id number] : 1965 59 From: Franco Inman MD PCP: Dr. Misbah Elkins MD Status:ADM I N Location: [place] [address] HPI History of Present Illness Chief Complaint: [...] had a pancreatic block done at the [facility] was discharged the same day. She [...] mg PO BID 30 days #60 tabs 04/09/24 Unknown Rx amlodipine 10 mg tablet 5 [...] Allergy Other Verified 12/04/24 15:55 hydrocodone (From [place]) AdvReac Itching Verified 12/04/24 15:55 Family History [...] Back nontender. Moving all 4 extremities. Normal magnetic prospecting supervisor strength. Normal dorsi plantarflexion. Calves are nontender [...] 80.5 H Lymph % (Auto) 6.8 L [place] % (Auto) 10.4 H Eos % (Auto) [...] rate of 121. No acute signs of [place] or ischemia. No dysrhythmia. Discharge Plan Dx/Rx/DC Orders Clinical Impression: Viral URI, COPD exacerbation, Hypoxia, Chronic pancreatitis Disposition Disposition: [facility] What to do if you have Problems For any increased pain, shortness of breath, bleeding, nausea or vomiting, chestpain, or any unexpected problems, contact your Primary Care Provider. Call [facility] ([phone]) or report to the closest Emergency Room. Call 911 if necessary. 12/04/24 1846 <Electronically signed by Franco Inman MD> Cosigner Signature (if applicable): CC: Dr. Misbah Elkins MD ~ Signed [facility] Work Phone: 1([phone]) 338-523003-06-2025 Telephone encounter Note* Telephone Encounter - Jane Farrell MD - 12/01/2024 11:58 AM EST Orders [facility]03-06-2025 Miscellaneous Notes* Telephone Encounter - Jane Farrell MD - 12/01/2024 11:58 AM EST Orders documented in [facility]Mer[facility] Nurse Note* Reshma Telles RN - [...] MATERIAL: Procedure Discharge Instructions REFERRAL (RECOMMENDATION): None [facility]03-06-2025 Nurse Note* Reshma Telles RN - [...] RN In Department: GASTROENTEROLOGY documented in this encounterMer[facility]03-[facility]-2025 NoteQ3 Patient Name: Gracie Banuelos Procedure Date: 12/01/2024 9:53 AM Date of : 1965 Admit Type: Outpatient Age: 59 Gender: Female Note Status: Finalized Attending MD: Jane Farrell MD, [id number] Procedure: Upper EUS Indications: Celiac plexus block [...] present medications. Procedure Code(s): --- Professional --- 59233, Esophagogastroduodenoscopy, flexible, transoral; with endoscopic ultrasound examination limited to the esophagus, stomach or duodenum, and adjacent structures Diagnosis Code(s): --- Professional --- K86.9, Disease of pancreas, unspecified K86.1, Other chronic pancreatitis R93.3, Abnormal findings on diagnostic imaging of other parts of digestive tract CPT copyright 2020 [employer]. All rights reserved. Attending Participation: I personally performed the entire procedure. Scope In: 10:14:38 AM Scope Out: 10:28:19 AM MD Jane Fields MD 12/01/2024 10:35:18 AM This report has been signed electronically by Jane Farrell MD Number of Addenda: 0 Note Initiated On: 12/01/2024 9:53 [id number] Patient Name: Gracie Banuelos Procedure Date: 12/01/2024 9:53 AM Date of : 1965 Admit Type: Outpatient Age: 59 Gender: Female Note Status: Finalized Attending MD: Jane Farrell MD, [id number] Procedure: Upper EUS Indications: Celiac plexus block [...] present medications. Procedure Code(s): --- Professional --- 94476, Esophagogastroduodenoscopy, flexible, transoral; with endoscopic ultrasound examination limited to the esophagus, stomach or duodenum, and adjacent structures Diagnosis Code(s): --- Professional --- K86.9, Disease of pancreas, unspecified K86.1, Other chronic pancreatitis R93.3, Abnormal findings on diagnostic imaging of other parts of digestive tract CPT copyright 2020 [employer]. All rights reserved. Attending Participation: I personally performed the entire procedure. Scope In: 10:14:38 AM Scope Out: 10:28:19 AM MD Jane Fields MD 12/01/2024 10:35:18 AM This report has been signed electronically by Jane Farrell MD Number of Addenda: 0 Note Initiated On: 12/01/2024 9:53 [facility]03-06-2025 Nurse Note* Kathie Dorantes RN - [...] By: Kathie Dorantes RN In Department: GASTROENTEROLOGY [facility]03-04-2025 NotePatient Outreach (INTMMN) GRACIE BANUELOS ([id number]) 1965 F Date Time Provider Department 11/29/24 [...] [E78.5] Order(s):LIPID PANEL BASIC [SQLIPB] Order #: [id number] FUTURE Prescriptions as of 12/02/2024 - pantoprazole [...] by mouth at bedtime as needed. - vpgcfk-efuunzmh-cvigwyh (CREON 24) 24,000-76,000 -120,000 unit delayed release [...] stress female [N39.3] 11/24/2014 HPV test positive [RMQ4605] 11/24/2014 Alcohol dependence in remission (HCC) [F10.21] [...] bloating [R14.0] 01/10/2021 01/10/2021 Encounter Status:Closed by [employer], PRODUSER on 12/02/24[facility] 11-25-2024 Telephone encounter Note* Telephone Encounter - Juan Bloom LPN - 11/25/2024 3:57 PM EST Spoke with Gracie, discussed that [facility] staff will be talking to patient in preoperative area and will give any medications IV to help with anxiety, patient understands and has no other questions. Juan Bloom LPN [facility] Work Phone: 1(546) 407-488502-28-2025 Miscellaneous Notes* Telephone Encounter - Juan Bloom [...] you do prescribe or if you won't [phone] (does not use MyChart) Lyric Yeung documented in this encounterMer[facility]02-28-2025 Telephone encounter Note * Telephone Encounter [...] you do prescribe or if you won't [phone] (does not use MyChart) Lyric Yeung [facility]02-28-2025 Telephone encounter Note* Telephone Encounter - Raisa Jimenez RN - 11/25/2024 12:00 PM EST Spoke with pt and went over prep instructions, answering all her questions until pt was comfortableand verbalized understanding Raisa Jimenez MA [facility]02-28-2025 Miscellaneous Notes* Telephone Encounter - Raisa Jimenez RN - 11/25/2024 12:00 PM EST Spoke with pt and went over prep instructions, answering all her questions until pt was comfortableand verbalized understanding Raisa Jimenez MA documented in this encounterMercy [facility]02-27-2025 Nurse Note* Carroll Leblanc RN - 11/24/2024 4:09 PM EST Attempted to reach the patient at the contact number that they provided [phone] (home) . Unable to speak with patient so without identifying the patient the following information was left on their voice mail: Date of procedure, location and report time Prep instructions A message was left informing the patient/patient event representative they must have a responsible adult [...] Number to call with questions or concerns [phone] Number to call to cancel their procedure [phone] Carroll Leblanc RN [facility]02-27-2025 Nurse Note* Carroll Leblanc RN - 11/24/2024 4:09 PM EST Attempted to reach the patient at the contact number that they provided [phone] (home) . Unable to speak with patient so without identifying the patient the following information was left on their voice mail: Date of procedure, location and report time Prep instructions A message was left informing the patient/patient event representative they must have a responsible adult [...] Number to call with questions or concerns [phone] Number to call to cancel their procedure [phone] Carroll Leblanc RN documented in this encounterMer[facility]02-24-2025 Telephone encounter Note * Telephone Encounter [...] Phan RN November 21, 2024 2:14 PM [facility]02-24-2025 Miscellaneous Notes* Telephone Encounter - Mike [...] 21, 2024 2:14 PM documented in this encounterMercy [facility]02-12-2025 Telephone encounter Note * Telephone Encounter - Candie Murdock MA - 11/09/2024 11:38 AM EST Patient notified and verbalized understanding. Candie Murdock MA [facility]02-12-2025 Miscellaneous Notes* Telephone Encounter - Candie Murdock MA - 11/09/2024 11:38 AM EST Patient notified and verbalized understanding. Candie Murdock MA * Telephone Encounter - Misbah Elkins [...] back. Maribeth Owen LPN documented in this encounterMercy [facility]02-12-2025 Telephone encounter Note * Telephone Encounter - Misbah Elkins MD - 11/09/2024 10:22 AM EST The medication Is for anxiety, and was the medication she requested. So please ask her to use it. RegardsMisbah MD [facility]02-12-2025 Telephone encounter Note* Telephone Encounter - Marisela Rico LPN - 11/09/2024 8:17 AM EST Called and updated patient, voiced understanding. Marisela Rico LPN November 09, 2024 8:18 AM [facility]02-12-2025 Miscellaneous Notes* Telephone Encounter - Marisela [...] . Misbah Cisneros MD documented in this encounterMercy Health [facility]02-12-2025 Telephone encounter Note * Telephone Encounter - Marisela Rico LPN - 11/09/2024 8:10 AM EST ----- Message from Misbah Elkins MD sent at 11/08/2024 5:00 PM EST ----- Chest xr is normal . Misbah Cisneros MD [facility]02-11-2025 Telephone encounter Note* Telephone Encounter - [...] and advise pt back. Maribeth Owen LPN [facility]02-10-2025 History of Present illness Narrative* Roland [...] PATIENT PRESENTS WITH AN IMPLANTABLE OR ATTACHED HORTICULTURAL MANAGER: No RADIOLOGY DEPARTMENT: General X-ray: Exam(s) Completed: Chest X-Ray PERIPHERAL IV DATA: Not applicable SIGNED BY: RT Oneyda(Heath) November 07, 2024 3:11 PM documented in this encounterMercy Health Perry[facility] Hospital02-10-2025 NoteHNO ID: [id number] Author: ROLAND CAMARGO RT(R) Service: Radiology Author [...] PATIENT PRESENTS WITH AN IMPLANTABLE OR ATTACHED HORTICULTURAL MANAGER: No RADIOLOGY DEPARTMENT: General X-ray: Exam(s) Completed: Chest X-Ray PERIPHERAL IV DATA: Not applicable SIGNED BY: RT Oneyda(R) November 07, 2024 3:11 [facility]02-10-2025 NoteHNO ID: [id number] Author: MISBAH ELKINS MD Service: ? Author [...] anxiety and depression. She was admitted to [facility] from 01/01 to 01/04 for [...] times and is only getting Remeron from [facility]. She says she has panic and [...] Take 1 tablet by mouth once daily. khpuyu-fluhsieu-udgtrqz (CREON 24) 24,000-76,000 -120,000 unit delayed release capsule Take 3 capsules by mouth once daily. (Patient not taking: Reported on 11/02/2024) metoprolol tartrate, short acting (more content not included)...[facility]02-10-2025 History of Present illness Narrative* Misbah Elkins MD - 11/07/2024 2:01 PM EST BESSIE Bowman is a 59-year-old woman with a past medical history of hypertension, hyperlipidemia, alcohol use disorder with moderate dependence currently only using alcohol twice a month, alcohol hepatitis and pancreatitis, tobacco abuse disorder, pulmonary emphysema, lumbar disc disease with radiculopathy, anxiety and depression. She was admitted to [facility] from 01/01 to 01/04 for [...] Take 1 tablet by mouth once daily. wymymt-ndirlunt-ypyhitx (CREON 24) 24,000-76,000 -120,000 unit delayed release [...] FRONTAL/LAT Misbah Elkins MD documented in this encounterMercy Health Perry[facility] Hospital02-05-2025 Instructions* Patient Instructions* Juan Senior APRN.LEGAL EXECUTIVE ASSISTANT - 11/02/2024 2:41 PM EST Schedule pain block Schedule appointment with pain management Small frequent meals, lean protein (chicken, fish, pork or turkey are preferred), low fat and high antioxidants [email or web address] for diet tips Follow up in 3-6 months documented in this encounterMercy Health Perrysburg Hospital02-05-2025 History of Present illness Narrative* Juan [...] muscles on the left is partially imaged. [facility] 08/15/2024 HPI Gracie [...] shortness of breath all improving. Goes to [facility] with next routine exam in September. [...] and nausea. Denies anyvomiting or bowel changes. [facility] G[facility] 05/27/2022 HPI Gracie Banuelos is [...] 02, 2024 12:34 PM documented in this encounterMercy Health Perrysburg Hospital02-05-2025 NoteHNO ID: [id number] Author: JUAN SENIOR APRN.CNP Service: ? Author [...] muscles on the left is partially imaged. [facility] 08/15/2024 HPI Gracie [...] shortness of breath all improving. Goes to [facility] with next routine exam in September. [...] nausea. Denies any vomiting or bowel changes. [facility] 05/27/2022 [facility] Gracie Banuelos is a 57 year old [...] Oct 2019 SYMPTOMS History (more content not included)...[facility]01-31-2025 Telephone encounter Note* Telephone Encounter - Mihaela [...] Take 1 capsule by mouth once daily. Mihalea Cheng RN [facility]01-31-2025 Miscellaneous Notes* Telephone Encounter - Mihaela [...] daily. Mihaela Cheng RN documented in this encounterMercy Health Perrysburg Hospital11-26-2024 History of Present illness Narrative* Reef Nadeen Duran RT(R) - 08/23/2024 9:20 AM EST Radiology [...] PATIENT PRESENTS WITH AN IMPLANTABLE OR ATTACHED HORTICULTURAL MANAGER: No ALLERGIES: Reviewed and unchanged CONTRAST [...] 2024 TIME: 10:05 AM documented in this encounterMercy Health Perrysburg Hospital11-26-2024 NoteHNO ID: [id number] Author: NADEEN BOBBY RT (R) Service: ? Author Type: Signals Collector/Analyst Type: Progress Notes Filed: 08/23/2024 10:05 Note [...] PATIENT PRESENTS WITH AN IMPLANTABLE OR ATTACHED HORTICULTURAL MANAGER: No ALLERGIES: Reviewed and unchanged CONTRAST [...] Banuelos DATE: August 23, 2024 TIME: 10:05 [facility]11-22-2024 Telephone encounter Note* Telephone Encounter - Maribeth Owen LPN - 08/19/2024 11:35 AM EST Pt called in to reports she is still getting the Lexapro in her packs. I called [facility] and they will pick her packs up today and remove the Lexapro and then deliver back to pt today. Pt notified. Maribeth Owen LPN [facility]11-22-2024 Miscellaneous Notes* Telephone Encounter - Maribeth Owen LPN - 08/19/2024 11:35 AM EST Pt called in to reports she is still getting the Lexapro in her packs. I called [facility] and they will pick her packs up today and remove the Lexapro and then deliver back to pt today. Pt notified. Maribeth Owen LPN documented in this encounterMercy Health Perrysburg Hospital11-20-2024 Telephone encounter Note * Telephone Encounter - Soila Easton APRN.LEGAL EXECUTIVE ASSISTANT - 08/17/2024 7:19 AM EST PDMP website checked and validated. All prescriptions have been APPROPRIATELY filled. No suspiciousactivity was identified. 08/17/2024 by Soila Easton APRN.CNP [facility]11-20-2024 Miscellaneous Notes* Telephone Encounter - Soila [...] 16, 2024 9:30 AM documented in this encounterMercy Health Perrysburg Hospital11-19-2024 Telephone encounter Note * Telephone Encounter [...] Pennington LPN August 16, 2024 9:30 AM [facility]11-18-2024 NoteHNO ID: [id number] Author: SOILA EASTON APRN.LEGAL EXECUTIVE ASSISTANT Service: ? Author Type: Nurse Practitioner Type: [...] shortness of breath all improving. Goes [facility] with next routine exam in September. [...] to infectious organism 2017 Severe protein-calorie malnutrition ([facility]) 01/07/2019 Stage 3 severe COPD by GOLD classification ([facility]) 2018 Tobacco use greater than 30 years Unspecified hemorrhoids without mention of complication Urine, incontinence, stress female 11/24/2014 PAST SURGICAL HISTORY Procedure Laterality Date APPENDECTOMY at age 14 COLONOSCOPY 04/15/[address], [address] Paul Perez. COLONOSCOPY 01/23/2015 2-Tubular adenomas. Dr. Víctor Lpoez. COLONOSCOPY 07/29/2017 normal COLONOSCOPY - DIAGNOSTIC 01/10/2021 [...] Take 1 tablet by mouth once daily. padhmn-bxcumtna-bwtkbhz (CREON 24) 24,000-76,000 -120,000 unit delayed release [...] 200 mg capsule Take (more content not included)...[facility]11-18-2024 History of Present illness Narrative* Soila Easton APRN.[facility] - 08/15/2024 11:36 AM EST CC: Patient [...] shortness of breath all improving. Goes to [facility] with next routine exam in September. [...] failure (HCC) COPD (chronic obstructive pulmonary disease) ([facility]) 05/25/2012 DDD (degenerative disc disease), [...] Stage 3 severe COPD by GOLD classification ([facility]) 2018 Tobacco use greater than [...] Take 1 tablet by mouth once daily. kagrah-flpvgmfe-lxyuuyu (CREON 24) 24,000-76,000 -120,000 unit delayed release [...] Cancer Screening due on 01/11/2024 Covid-19 Vaccine( season) due on 05/29/2024 Annual PCP Team [...] plan. Soila Easton APRN.IGOR documented in this encounterMercy Health [facility] Hospital11-14-2024 Telephone encounter Note * Telephone Encounter - Eva Martines RN - 08/11/2024 3:26 PM EST Patient notified of results and provider's instructions. Patient verbalizes understanding. Eva Martines RN [facility]11-14-2024 Miscellaneous Notes* Telephone Encounter - Eva [...] follow up appointment. Thank you Soila Easton APRN.CNP documented in this encounterMercy Health Perrysburg Hospital11-14-2024 Telephone encounter Note * Telephone Encounter - Maribeth Owen LPN - 08/11/2024 3:21 PM EST .Left a message for pt to call the office and ask to speak to a nurse. Maribeth Owen LPN [facility]11-14-2024 Telephone encounter Note* Telephone Encounter - Maribeth Owen LPN - 08/11/2024 3:21 PM EST ----- Message from Soila Easton APRN.LEGAL EXECUTIVE ASSISTANT sent at 08/11/2024 3:16 PM EST ----- No pneumonia on chest xray. Continue current treatment and upcoming follow up appointment. Thank you Soila Easton APRN.LEGAL EXECUTIVE ASSISTANT [facility]11-13-2024 History of Present illness Narrative* Contreras [...] PATIENT PRESENTS WITH AN IMPLANTABLE OR ATTACHED HORTICULTURAL MANAGER: No RADIOLOGY DEPARTMENT: General X-ray: Exam(s) Completed: Chest X-Ray PERIPHERAL IV DATA: Not applicable SIGNED BY: RT Cristy(R) August 10, 2024 5:40 PM documented in this encounterMercy Health Perrysburg Hospital11-13-2024 NoteHNO ID: [id number] Author: CONTRERAS MACK RT(Heath) Service: ? Author Type: Signals Collector/Analyst Type: Progress Notes Filed: 08/10/2024 17:47 Note [...] PATIENT PRESENTS WITH AN IMPLANTABLE OR ATTACHED HORTICULTURAL MANAGER: No RADIOLOGY DEPARTMENT: General X-ray: Exam(s) Completed: Chest X-Ray PERIPHERAL IV DATA: Not applicable SIGNED BY: RT Cristy(R) August 10, 2024 5:40 [facility]11-13-2024 NoteHNO ID: [id number] Author: SOILA EASTON APRN.IGOR Service: ? Author [...] Stage 3 severe COPD by GOLD classification ([facility]) 2018 Tobacco use greater than [...] Take 1 tablet by mouth once daily. xippjo-sskpgnbh-exinekb (CREON 24) 24,000-76,000 -120,000 unit delayed release [...] daily with meals. luciano (more content not included)...[facility]11-13-2024 History of Present illness Narrative* Soila Easton APRN.LEGAL EXECUTIVE ASSISTANT - 08/10/2024 5:05 PM EST CC: Patient [...] airways disease (HCC) Alcohol dependence in remission ([facility]) 07/10/2015 Alcohol use disorder 08/27/2017 [...] Stage 3 severe COPD by GOLD classification ([facility]) 2018 Tobacco use greater than [...] Take 1 tablet by mouth once daily. hbrthd-ooajnrbt-ywzctjp (CREON 24) 24,000-76,000 -120,000 unit delayed release [...] plan. Soila Easton APRN.IGOR documented in this encounterMercy Health [facility] Hospital11-13-2024 Telephone encounter Note * Telephone Encounter [...] urine sample to test for a UTI. [facility]11-13-2024 Miscellaneous Notes* Telephone Encounter - Caroline [...] next visit. RegardsMisbah MD documented in this encounterMercy Health Perrysburg Hospital11-13-2024 Telephone encounter Note * Telephone Encounter - Caroline Miller RN - 08/10/2024 1:14 PM EST ----- Message from Misbah Elkins MD sent at 08/10/2024 12:44 PM EST ----- Gracie your while count always tends to be high, We will evaluate that in the next visit. Misbah Cisneros MD [facility]11-08-2024 Instructions* Patient Instructions* Misbah Elkins MD [...] Sleep Foundation at [email or web address]. documented in this encounterMercy Health Perrysburg Hospital11-08-2024 History of Present illness Narrative* Misbah Elkins MD - 08/05/2024 3:40 PM EST BESSIE Bowman is a 59-year-old woman with a past medical history of hypertension, hyperlipidemia, alcohol use disorder with moderate dependence currently only using alcohol twice a month, alcohol hepatitis and pancreatitis, tobacco abuse disorder, pulmonary emphysema, lumbar disc disease with radiculopathy, anxiety and depression. She was admitted to [facility] from 01/01 to 01/04 for [...] times and is only getting Remeron from [facility]. She says she has rocha ic [...] to infectious organism 2017 Severe protein-calorie malnutrition ([facility]) 01/07/2019 Stage 3 severe COPD by GOLD classification ([facility]) 2018 Tobacco use greater than [...] Take 1 tablet by mouth once daily. fhezxn-khrwthxx-afeztwt (CREON 24) 24,000-76,000 -120,000 unit delayed release [...] DIFFERENTIAL Misbah Elkins MD documented in this encounterMercy Health [facility] Hospital11-08-2024 NoteHNO ID: [id number] Author: MISBAH ELKINS MD Service: ? Author [...] anxiety and depression. She was admitted to [facility] from 01/01 to 01/04 for [...] EGD EUS 12/05/2019 mil (more content not included)...[facility]10-11-2024 Telephone encounter Note* Telephone Encounter - Soila Easton APRN.CNP - 07/08/2024 2:43 PM EDT PDMP website checked and validated. All prescriptions have been APPROPRIATELY filled. No suspiciousactivity was identified. 07/08/2024 by Soila Easton APRN.CNP [facility]10-11-2024 Miscellaneous Notes* Telephone Encounter - Soila [...] 08, 2024 1:52 PM documented in this encounterMercy Health Perry[facility] Hospital10-11-2024 Telephone encounter Note * Telephone Encounter [...] Phan RN July 08, 2024 1:52 PM [facility]09-24-2024 Telephone encounter Note* Telephone Encounter - Candie Murdock MA - 06/21/2024 2:32 PM EDT Patient no showed to today's appt. Letter sent. Candie Murdock MA [facility]09-24-2024 Miscellaneous Notes* Telephone Encounter - Candie Murdock MA - 06/21/2024 2:32 PM EDT Patient no showed to today's appt. Letter sent. Candie Murdock MA documented in this encounterMercy Health Perrysburg Hospital09-19-2024 Telephone encounter Note * Telephone Encounter - Soila Easton APRN.CNP - 06/16/2024 12:39 PM EDT PDMP website checked and validated. All prescriptions have been APPROPRIATELY filled. No suspiciousactivity was identified. 06/16/2024 by Soila Easton APRN.CNP [facility]09-19-2024 Miscellaneous Notes* Telephone Encounter - Soila [...] 15, 2024 2:33 PM documented in this encounterMercy Health Perrysburg Hospital09-18-2024 Telephone encounter Note * Telephone Encounter [...] Velazquez LPN June 15, 2024 5:21 PM [facility]09-18-2024 Telephone encounter Note* Telephone Encounter - [...] Holly Jensen June 15, 2024 2:33 PM [facility]08-21-2024 History of Present illness Narrative* Misbah Elkins MD - 05/18/2024 4:37 PM EDT BESSIE Bowman is a 59-year-old woman with a past medical history of hypertension, hyperlipidemia, alcohol use disorder with moderate dependence currently only using alcohol twice a month, alcohol hepatitis and pancreatitis, tobacco abuse disorder, pulmonary emphysema, lumbar disc disease with radiculopathy, anxiety and depression. She was admitted to [facility] from 01/01 to 01/04 for [...] times and is only getting Remeron from [facility]. She says she has rocha ic [...] Acute exacerbation of chronic obstructive airways disease ([facility]) 07/10/2015: Alcohol dependence in remission ([facility]) 08/27/2017: Alcohol use disorder No date: Alcohol-induced pancreatitis 05/18/2012: Alcoholic hepatitis 11/16/2013: Alcoholic liver disease ([facility]) No date: Anemia No date: Anxiety with depression No date: Asthma No date: Chronic hypoxemic respiratory failure ([facility]) 05/25/2012: COPD (chronic obstructive pulmonary disease) ([facility]) 09/03/2018: DDD (degenerative disc disease), [...] Stage 3 severe COPD by GOLD classification ([facility]) No date: Tobacco use Comment: [...] tablet by mouth two times a day. mdcyyw-czaokxgp-zhljekv (CREON 24) 24,000-76,000 -120,000 unit delayed release [...] 577.1, ICD10: K86.0 Refilled her Creon - QDBYOP-KLVWBVYL-DHWNCXA 24,000-76,000-120,000 UNIT CAPSULE,DELAYED REL 3. Chronic obstructive [...] TABLET Misbah Elkins MD documented in this encounterMercy Health Perrysburg Hospital08-19-2024 Telephone encounter Note * Telephone Encounter - Maribeth Owen LPN - 05/16/2024 7:28 PM EDT Spoke with pt and apt booked for tomorrow. Pt not out of medication. Pt will discuss medication below at apt. Maribeth Owen LPN [facility]08-19-2024 Miscellaneous Notes* Telephone Encounter - Maribeth [...] patient via phone and does not use [employer]. Patients phone has restriction on it and [...] 13, 2024 12:12 PM documented in this encounterMercy Health Perrysburg Hospital08-19-2024 Telephone encounter Note * Telephone Encounter - Susy Barnes LPN - 05/16/2024 6:57 PM EDT Unable to reach Patient, phone has restrictions and can not receive call. Called Domonique/Sister, asking for Patient to call & speak to nurse. Susy Barnes LPN [facility]08-16-2024 Telephone encounter Note* Telephone Encounter - Marisela Rico LPN - 05/13/2024 3:58 PM EDT Unable to contact patient via phone and does not use [employer]. Patients phone has restriction on it and can not receive call. Patient has an appointment with Soila Easton on 05/23/24 if unable to contact patient sooner. Marisela Rico LPN May 13, 2024 3:59 PM [facility]08-16-2024 Telephone encounter Note* Telephone Encounter - Misbah Elkins MD - 05/13/2024 12:34 PM EDT Please set gracie to see me on Thursday to discuss this refill Misbah Cisneros MD [facility]08-16-2024 Telephone encounter Note* Telephone Encounter - [...] Owen LPN May 13, 2024 12:12 PM [facility]07-19-2024 Telephone encounter Note* Telephone Encounter - Soila Easton APRN.CNP - 04/15/2024 2:36 PM EDT PDMP website checked and validated. All prescriptions have been APPROPRIATELY filled. No suspiciousactivity was identified. 04/15/2024 by Soila Easton APRN.CNP [facility]07-19-2024 Miscellaneous Notes* Telephone Encounter - Soila [...] 15, 2024 1:32 PM documented in this encounterMercy Health Perrysburg Hospital07-19-2024 Telephone encounter Note * Telephone Encounter [...] Phan RN April 15, 2024 1:32 PM [facility]06-21-2024 Telephone encounter Note* Telephone Encounter - Annette Hayes APRN.CNP - 03/18/2024 3:09 PM EDT PDMP website checked and validated. All prescriptions have been APPROPRIATELY filled. No suspiciousactivity was identified. 03/18/2024 by Annette Hayes APRN.CNP [facility]06-21-2024 Miscellaneous Notes* Telephone Encounter - Annette [...] 18, 2024 2:51 PM documented in this encounterMercy Health Perrysburg Hospital06-21-2024 Telephone encounter Note * Telephone Encounter [...] Tasneem Jensen March 18, 2024 2:51 PM [facility]06-17-2024 Telephone encounter Note* Telephone Encounter - Eda Shine LPN - 03/14/2024 2:02 PM EDT Phoned patient and left message that she should have enough medication to get her to her appointment next week with Soila Easton on 03/18/24. Eda Shine LPN [facility]06-17-2024 Miscellaneous Notes* Telephone Encounter - Eda [...] 14, 2024 11:25 AM documented in this encounterMercy Health [facility] Hospital06-17-2024 Telephone encounter Note * Telephone Encounter - Julissa Burgos MD - 03/14/2024 12:53 PM EDT Last RX 02/25 for 28 day supply so should have enough to last till 03/25 Has 03/18 appointment with Soila, so should be able to get refills next week [facility] Work Phone: [phone] 190-430006-17-2024 Telephone encounter Note* Telephone Encounter - Catherine [...] Pennington LPN March 14, 2024 11:25 AM [facility]05-31-2024 Telephone encounter Note* Telephone Encounter - Annette Hayes APRN.CNP - 02/26/2024 3:25 PM EDT PDMP website checked and validated. All prescriptions have been APPROPRIATELY filled. No suspiciousactivity was identified. 02/26/2024 by Annette Hayes APRN.IGOR [facility]05-31-2024 Miscellaneous Notes* Telephone Encounter - Annette Hayes APRN.IGOR - 02/26/2024 3[facility] [facility] All prescriptions have been APPROPRIATELY filled. No suspiciousactivity was identified. 02/26/2024 by Annette Hayes APRN.IGOR * Telephone Encounter - Kiara Miramontes LPN - 02/26/2024 2:31 PM EDT Patient is now using [facility]. [facility] is unable to transfer this from [facility] since it is a controlled medication. Patient [...] you. Kiara Miramontes LPN. documented in this encounterMercy Health [facility] Hospital05-31-2024 Telephone encounter Note * Telephone Encounter - Kiara Miramontes LPN - 02/26/2024 2:31 PM EDT Patient is now using [facility]. [facility] is unable to transfer this from [facility] since it is a controlled medication. Patient [...] Please advise. Thank you. Kiara Miramontes LPN. [facility]05-24-2024 Telephone encounter Note* Telephone Encounter - Soila Easton APRN.CNP - 02/19/2024 2:30 PM EDT PDMP website checked and validated. All prescriptions have been APPROPRIATELY filled. No suspiciousactivity was identified. 02/19/2024 by Soila Easton APRN.IGOR [facility]05-24-2024 Miscellaneous Notes* Telephone Encounter - Soila Easton APRN.CNP - 02/19/2024 2:30 PM EDT PDMP website checked and validated. All prescriptions have been APPROPRIATELY filled. No suspiciousactivity was identified. 02/19/2024 by Soila Easton APRN.LEGAL EXECUTIVE ASSISTANT * Telephone Encounter - Eda Shine LPN [...] care: 03/18/2024 Please advise. Thank you. Eda Shien LPN. * Telephone Encounter - Pily Dewitt [...] Thank you. Pily Dewitt. documented in this encounterMercy Health [facility]05-24-2024 Telephone encounter Note * Telephone Encounter [...] Please advise. Thank you. Eda Shine LPN. [facility]05-24-2024 Telephone encounter Note* Telephone Encounter - [...] 03/18/2024 Please advise. Thank you. Pily Dewitt. [facility]05-09-2024 Miscellaneous Notes* Telephone Encounter - Soila Easton APRN.CNP - 02/04/2024 12:37 PM EDT Noted Soila Easton APRN.CNP * Telephone Encounter - Mihaela Cheng RN - 02/04/2024 9:19 AM EDT FYI: Patient calling in to update PCP that she was seen by Dr. Owen Del Rosario at [facility] recently and diagnosed with gout in her right foot. She has been prescribed medication/treatment and will be following up with them next week. Patient states if PCP team needs any of these records, to contact DR. Del Rosario's office for them. Patient will be seeing Soila Easton CNP in February. Mihaela Cheng RN documented in this encounterMercy Health [facility]05-09-2024 Telephone encounter Note * Telephone Encounter - Soila Easton APRN.CNP - 02/04/2024 12:37 PM EDT Noted Soila Easton APRN.CNP [facility]05-09-2024 Telephone encounter Note* Telephone Encounter - Mihaela Cheng RN - 02/04/2024 9:19 AM EDT FYI: Patient calling in to update PCP that she was seen by Dr. Owen Del Rosario at [facility] recently and diagnosed with gout in her right foot. She has been prescribed medication/treatment and will be following up with them next week. Patient states if PCP team needs any of these records, to contact DR. Del Rosario's office for them. Patient will be seeing Soila Easton CNP in February. Mihaela Cheng RN [facility]05-01-2024 Telephone encounter Note* Telephone Encounter - María Elena Sheth RN - 01/27/2024 6:04 PM EDT Spoke with patient. Given message from provider's office. Patient verbalizes understanding. María Elena Sheth RN [facility]05-01-2024 Miscellaneous Notes* Telephone Encounter - María [...] visit. * Telephone Encounter - Tara Youngblood APRN.IGOR - 01/27/2024 5:04 PM EDT Please call patient and let her know that chest x-ray does look like pneumonia was not completely resolved from inpatient admission. The antibiotic given at office visit will treat. Was patient able to go to pulmonary appointment yesterday that she told me about? If so, what was their input. Can weget these records. Thank you, Tara Youngblood APRN.LEGAL EXECUTIVE ASSISTANT documented in this encounterMercy Health [facility]05-01-2024 Telephone encounter Note * Telephone Encounter - Tara Youngblood APRN.IGOR - 01/27/2024 5:19 PM EDT Only if symptoms do not resolve. Thank you, Tara Youngblood APRN.LEGAL EXECUTIVE ASSISTANT [facility]05-01-2024 Telephone encounter Note* Telephone Encounter - Pam Jones LPN - 01/27/2024 5:13 PM EDT T/C to pt gave information provided. Pt voices understanding. She asks when done with atb . Should she come back to make sure its resolved? Placed records in your basket of pulmonary visit. [facility]05-01-2024 Telephone encounter Note* Telephone Encounter - [...] weget these records. Thank you, Tara Youngblood APRN.LEGAL EXECUTIVE ASSISTANT [facility]04-29-2024 History of Present illness Narrative* Sonja Victor RT(Heath) - 01/25/2024 2:00 PM EDT Radiology Service [...] PATIENT PRESENTS WITH AN IMPLANTABLE OR ATTACHED HORTICULTURAL MANAGER: No RADIOLOGY DEPARTMENT: General X-ray: Exam(s) Completed: Chest X-Ray PERIPHERAL IV DATA: Not applicable SIGNED BY: RT Channing(Heath) January 25, 2024 2:07 PM documented in this encounterMercy Health [facility]04-29-2024 History of Present illness Narrative* Tara Youngblood APRN.CNP - 01/25/2024 1:20 PM EDT Chief Complaint Patient presents with: ER follow up HPI Gracie Banuelos is a 58 year old female who presents here today for Above Complaints. Gracie is an established patient of Dr. Satnam MD. She is a new patient to me today. [employer] computer system was down at time of this appointment. No access to chart during assessment/exam. Pt was aware of this prior to appointment and still agreed to appointment. Concerns today... ER follow-up --- [facility] ER visit on 01/18 d/t [...] not cleared up from prior admission at [facility] from 12/31-01/04. Stillvery wheezy and [...] failure (HCC) COPD (chronic obstructive pulmonary disease) ([facility]) 05/25/2012 DDD (degenerative disc disease), [...] Stage 3 severe COPD by GOLD classification ([facility]) 2018 Tobacco use greater than [...] tablet by mouth two times a day. cwovwg-svuodaub-rpwgbvt (CREON 24) 24,000-76,000 -120,000 unit delayed release [...] 1-dose 60+ series) Never done Covid-19 Vaccine( - season) due on 05/29/2023 Colorectal Cancer [...] look for resolution of prior pneumonia from [facility] admission 3 weeks ago. Concern [...] Patient agreeable to treatment plan. Tara Castellanos APRN.CNP [address] [place] [address] documented in this encounterMercy Health [facility]04-26-2024 Telephone encounter Note * Telephone Encounter - So Freeman LPN - 01/22/2024 3:16 PM EDT Patient calling back to check status of refill, aware MINI LAB OPERATOR is still seeing patients not addressed yet. [facility]04-26-2024 Miscellaneous Notes* Telephone Encounter - So Freeman LPN - 01/22/2024 3:16 PM EDT Patient calling back to check status of refill, aware MINI LAB OPERATOR is still seeing patients not addressed yet. [...] notify patient. Nohelia Zacarias documented in this encounterMercy Health [facility]04-26-2024 Telephone encounter Note * Telephone Encounter [...] Please advise. Thank you. Chen Chauhan LPN. [facility]04-26-2024 Telephone encounter Note* Telephone Encounter - [...] No need to notify patient. Nohelia Zacarias [facility]04-24-2024 Telephone encounter Note* Telephone Encounter - Soila Easton APRN.CNP - 01/20/2024 7:03 AM EDT PDMP website checked and validated. All prescriptions have been APPROPRIATELY filled. No suspiciousactivity was identified. 01/20/2024 by Soila Easton APRN.CNP [facility]04-24-2024 Miscellaneous Notes* Telephone Encounter - Soila Easton APRN.CNP - 01/20/2024 7:03 AM EDT PDMP website checked and validated. All prescriptions have been APPROPRIATELY filled. No suspiciousactivity was identified. 01/20/2024 by Soila Easton APRN.LEGAL EXECUTIVE ASSISTANT * Telephone Encounter - Marge Perkins RN [...] you. Marge Perkins RN. documented in this encounterMercy Health [facility]04-23-2024 Discharge summary Author Erik Gomez [facility] January 19, 2024 11:52pm Note Date/Time January 19, 2024 10: 42pm [facility] Medical Records Department [address] [place] [address] Emergency Department Summary 01/19/24 MR#: [id number] Acct: [id number] Name: GRACIE BANUELOS Rep #:[id number] : 1965 58 From: Erik Gomez MD PCP: Anat Easton MINI LAB OPERATOR-C Status:REG ER Location: ED HPI History of [...] she is asking for 1 of those. [facility] Medical History Acute on chronic hypoxic [...] QHS sleep 01/16/22 [History Last Taken 01/01/24] hfjidd-sriupjpk-ulqqcpu 24,000-76,000-120,000 unit capsule,delayed rel (Creon) 2cap PO [...] Allergy Other Verified 01/19/24 22:09 hydrocodone [From [place]] AdvReac Itching Verified 01/19/24 22:09 Family History [...] the right lower extremity, and per the non destructive testing technician's preliminary interpretation, it is negative for [...] Discussion w/another healthcare provider: Other (vascular u/s non destructive testing technician) Discharge Plan Triage Chief Complaint: Edema [...] 1 Week if not improving Anat Gutiérrez MINI LAB OPERATOR, MINI LAB OPERATOR-C [Primary Care Provider] - Disposition Disposition: Home, Self Care What to do if you have Problems For any increased pain, shortness of breath, bleeding, nausea or vomiting, chestpain, or any unexpected problems, contact your Primary Care Provider. Call [facility] ([phone]) or report to the closest Emergency Room. Call 911 if necessary. 01/19/242351 <Electronically signed by Erik Gomez MD> Cosigner Signature (if applicable): CC: MINI LAB OPERATORMiriam Easton ~ Signed [facility] Work Phone: 1(562) 789-463404-22-2024 Telephone encounter Note* Telephone Encounter - Marge [...] Please advise. Thank you. Marge Perkins, SARWAT. [facility]04-16-2024 Miscellaneous Notes* Telephone Encounter - So Freeman LPN - 01/12/2024 4:09 PM EDT Phoned pharmacy and aware Metoprolol rx had been sent in per MINI LAB OPERATOR. * Telephone Encounter - Anat Gutiérrez APRN.CNP [...] Metoprolol rx for the patient. Asking if MINI LAB OPERATOR wanted to send rx for the patient, or if the patient gets from another provider? Please advise documented in this encounterMercy Health [facility]04-16-2024 Instructions* Patient Instructions* Anat Gutiérrez APRN.CNP - 01/12/2024 11:36 AM EDT FOR BLOOD PRESSURE: DISCONTINUE HYDROCHLOROTHIAZIDE. DECREASE AMLODIPINE TO 5 MG DAILY. CONTINUE WITH METOPROLOL 25 MG TWICE A DAY OKAY TO RESTART HYDROXYZINE HAVE LAB WORK DONE IN ONE WEEK documented in this encounterMercy Health [facility]04-16-2024 History of Present illness Narrative* Anat [...] today for above. She was admitted to [facility] from 01/01 to 01/04 for [...] airways disease (HCC) Alcohol dependence in remission ([facility]) 07/10/2015 Alcohol use disorder 08/27/2017 Alcohol-induced pancreatitis Alcoholic hepatitis 05/18/2012 Alcoholic liver disease ([facility]) 11/16/2013 Anemia Anxiety with depression Asthma Chronic hypoxemic respiratory failure ([facility]) COPD (chronic obstructive pulmonary disease) ([facility]) 05/25/2012 DDD (degenerative disc disease), [...] Stage 3 severe COPD by GOLD classification ([facility]) 2018 Tobacco use greater than [...] systolic blood pressure less than 100 mmHG. stozsn-ncpzfumz-qqoyjsc (CREON 24) 24,000-76,000 -120,000 unit delayed release [...] Cognition normal. DATA REVIEWED: Outside chart from [facility] admission reviewed. ASSESSMENT/PLAN: 1. Essential [...] Patient agreeable to treatment plan. Anat Gutiérrez APRN.LEGAL EXECUTIVE ASSISTANT documented in this encounterMercy Health [facility]04-10-2024 Miscellaneous Notes* Telephone Encounter - Sylvia [...] for treatment for this. documented in this encounterMercy Health [facility]04-10-2024 History of Present illness Narrative* Deandra Botello LPN - 01/06/2024 2:00 PM EDT TRANSITION CARE MANAGEMENT (TCM) INITIAL CONTACT Manufacturing Test Technician Outreach Provider Action/FYI: TCM Initial contact with patient post discharge, spoke to patient. Patient identified by name and . TRANSITION CARE MANAGEMENT INITIAL OUTREACH DOCUMENTATION: 01/06/2024 Date of Outreach: Outreach Attempt 1: Contact Made Date of Discharge 01/05/2024 SUMMARY: -Pt discharged from [facility] on 01/05/24. -Admitted for: hypoxia,pneumonia,COPD exac Do you have a hospital follow up appointment with your PCP? Appointment on 01/12/24 with Anat Ghotra MINI LAB OPERATOR. Yes. Remind patient of appointment date, time, [...] instructions/AVS at all. Restate discharge instructions from [facility] verbally, copy/paste via Zachary Prellhart, mail, or provide in person. Do you have all the necessary equipment and supplies at home? Yes Medical records from recent hospitalization: Placed for provider to review Pt filled new medicines at [facility] but [facility] is her normal pharmacy. She will call [facility] pharmacy to see if they can pull the new rx she got from [facility] to make sure [facility] has her updated medicines. [facility] pharmacy pre packages pt medicines documented in this encounterMercy Health [facility]04-09-2024 Discharge summary Author Bert Greenwood [facility] January 05, 2024 12:07pm Note Date/Time January 05, 2024 7:40 am [facility] Medical Records Department [address] [place] [address] Instructions for Home/Discharge Instructions 01/05/24 0739 MR#: [id number] Acct: [id number] Name: GRACIE BANUELOS Rep #:[id number] : 1965 58 From: Bert Nixon PCP: Anat Easton, MINI LAB OPERATOR-C Status:ADM IN Discharge Instructions Diet Discharge Diet: [...] EASTON NP-C [Non-Staff] - Anat Gutiérrez NP, MINI LAB OPERATOR-C [Primary Care Provider] - Gonzalo Sebastian DO [Med Staff - Active Staff] - Within 2 Weeks Disposition Disposition (needs filled in before D/C Order can be placed): Home, Self Care 01/05/24 1207<Electronically signed by Bert Greenwood MD>Bert Greenwood MD CC: MINI LAB OPERATOR-C Anat Easton; Dr. Carin Meraz MD; Dr. Anastacia Bonilla MD ~ Signed [facility] Work Phone: 1(181) 642-281504-08-2024 Progress note Author [facility] January 04, 2024 1:21pm Note Date/Time January 04, 2024 8:28 am [facility] Medical Records Department [address] [place] [address] Progress Note - Hospitalist 01/04/24827 MR#: [id number] Acct: [id number] Name: GRACIE BANUELOS Rep #:[id number] : 1965 58 From: Bert Nixon PCP: CARMEN Salazar Status:ADM IN Location: [place] [id number] Reason for Visit Reason for Visit: Diagnoses [...] * # Charges/Coding Visit Charges Inpatient E&M: 70706 Subs Hosp L2 01/04/24 1321 <Electronically signed by Bert Greenwood MD> Cosigner Signature (if applicable): CC: ~ Signed [facility] Work Phone: 1(613) 615-714004-07-2024 Progress note Author Anastacia Bonilla [facility] January 03, 2024 11:22am Note Date/Time January 03, 2024 9:13 am [facility] Medical Records Department [address] [place] [address] Progress Note 01/03/24 0908 MR#: [id number] Acct: [id number] Name: GRACIE BANUELOS Rep #:[id number] : 1965 58 From: Anastacia Bonilla MD PCP: Anat Easton, MINI LAB OPERATOR-C Status:ADM IN Location: [place] [address] Subjective Subjective Patient seen and examined. She [...] 81.7 H, Lymph % (Auto) 9.6 L, [place] % (Auto) 6.9, Eos % (Auto) 0.6, [...] 91.3 H, Lymph % (Auto) 4.0 L, [place] % (Auto) 2.5, Eos % (Auto) 0.2, [...] EDT Reading Location ID and State: [facility] / [place] Tel , Service support , Physical Exam [...] * # Charges/Coding Visit Charges Inpatient E&M: 55351 Subs Hosp L2 01/03/24 1122 <Electronically signed by Anastacia Bonilla MD> Anastacia Bonilla MD Cosigner Signature (if applicable): CC: ~ Signed [facility] Work Phone: [phone]) 453-102904-07-2024 Discharge summary Author Víctor Huerta [facility] January 02, 2024 11:55pm Note Date/Time January 02, 2024 7:21 pm [facility] Medical Records Department [address] [place] [address] Emergency Department Summary 01/02/24 MR#: [id number] Acct: [id number] Name: GRACIE BANUELOS Rep #:[id number] : 1965 58 From: Víctor Palumbo PCP: Anat Easton MINI LAB OPERATOR-C Status:ADM IN [facility] History of Present Illness Chief Complaint: [...] she has had that before with pneumonia. [facility] Medical History (Updated 01/02/24 @ 22:10 [...] DAILY BP 11/01/22 [History Last Taken Unknown] zljxbx-fquoyvpv-izmvtgu 24,000-76,000-120,000 unit capsule,delayed rel (Creon) 1cap PO [...] Allergy Other Verified 01/02/24 18:59 hydrocodone [From [place]] AdvReac Itching Verified 01/02/24 18:59 Family History [...] 81.7 H Lymph % (Auto) 9.6 L [place] % (Auto) 6.9 Eos % (Auto) 0.6 [...] EDT Reading Location ID and State: [facility] / [place] Tel , Service support , EKG Initial EKG: Attestation: I personally reviewed and interpreted this EKG as follows: Comments: Sinus tachycardia with a ventricular rate of 111 bpm. Prior EKG tracings: available for review Prior: Unchanged Management Discussion w/another healthcare provider: Hospitalist Discharge Plan Dx/Rx/DC Orders Clinical Impression: Acute on chronic hypoxic respiratory failure, COPD (chronic obstructive pulmonary disease), Pneumonia Disposition Disposition: Acute Care [facility] What to do if you have Problems For any increased pain, shortness of breath, bleeding, nausea or vomiting, chestpain, or any unexpected problems, contact your Primary Care Provider. Call [facility] ([phone]) or report to the closest Emergency Room. Call 911 if necessary. 01/02/24 3539 <Electronically signed by Víctor Huerta DO> Cosigner Signature (if applicable): CC: MINI LAB OPERATOR-C Anat Easton ~ Signed [facility] Work Phone: 1(167) 521-858904-07-2024 History and physical note Author Carin Meraz [facility] January 02, 2024 10:42pm Note Date/Time January 02, 2024 10:1 0pm [facility] Medical Records Department [address] [place] [address] H&P Exam - Hospitalist 01/02/242207 MR#: [id number] Acct: [id number] Name: GRACIE BANUELOS Rep #:[id number] : 1965 58 From: Carin Meraz MD PCP: CARMEN Salazar Status:ADM IN Location: [place] [address] HPI - General General Date of Admission: 01/02/24 Date of Service: 01/02/24 Chief Complaint: URI sxs, cough, dyspnea, worsening. HPI Narrative The patient is a 58 y/o F w/ PMHx: EtOH abuse, Tobacco use, COPD/Asthma w/ Chronic Hypoxic Respiratory Failure (PRN), HTN, HLD, Chronic anemia, Anxiety andDepression, Chronic pancreatitis associated with EtOH abuse who presents to the [facility] ED on 01/02/24 with history [...] 1, Ro[facility] 1 g IV x [facility]. [facility] Anemia Anxiety and depression [...] DAILY BP 11/01/22 [History Last Taken Unknown] qqrxnd-eqrvwrcl-nlublxr 24,000-76,000-120,000 unit capsule,delayed rel (Creon) 1cap PO [...] Allergy Other Verified 01/02/24 18:59 hydrocodone [From [place]] AdvReac Itching Verified 01/02/24 18:59 Family History [...] 81.7 H, Lymph % (Auto) 9.6 L, [place] % (Auto) 6.9, Eos % (Auto) 0.6, [...] with EtOH abuse who presents to the [facility] ED on 01/02/24 with history [...] Patient does not have healthcare power of compliance attorney or living will in place but [...] Time: 16minutes. Charges/Coding Visit Charges Inpatient E&M: 11010 Init Hosp L3 Procedures Hospitalists Procedures: 97864 Advncd Care Plan 30 Min 01/02/24 1822 <Electronically signed by Carin Meraz MD> Cosigner Signature (if applicable): CC: CARMEN Coppola Older; Dr. Carin Meraz MD~ Signed [facility] Work Phone: 1(883) 930-922903-20-2024 History of Present illness Narrative* Mayank CandieDEVIN - 12/16/2023 2:31 PM EDT CC: Patient [...] Stage 3 severe COPD by GOLD classification ([facility]) 2018 Tobacco use greater than [...] 1 tablet by mouth daily at bedtime. kiqjot-jbqlycja-uxszphg (CREON 24) 24,000-76,000 -120,000 unit delayed release [...] K86.0 Refills provided per pt request - CUMGWB-YWTPCRRM-NHWICZS 24,000-76,000-120,000 UNIT CAPSULE,DELAYED REL - CBC + [...] filled. No suspiciousactivity was identified. 12/16/2023 by Candie Talley PA-C - LORAZEPAM 0.5 MG TABLET [...] symptoms occur. Patient agreeable to treatment plan. Candie Talely PA-C documented in this encounterMercy Health [facility]02-07-2024 Miscellaneous Notes* Telephone Encounter - Maribeth Owen LPN - 11/04/2023 9:30 AM EST Spoke with [facility] pharmacy and message below was related to them. They will let pt know she will need to make an apt with her pcp to discuss medication. Maribeth Owen LPN * Telephone Encounter - Mariluz Roper LPN - 11/04/2023 8:[address] Elliott has never seen this patient and she is not a hem/onc patient. This was originally sent to in error. It looks like this was previously prescribed by Dr. Bernard Galan. Mariluz Roper LPN * Telephone Encounter - Maribeth Owen LPN - 11/03/2023 8:18 AM EST Spoke with [facility] and they were trying to reach [...] Thank you. Gem Swartz. documented in this encounterMercy Health [facility]10-13-2023 Miscellaneous Notes* Telephone Encounter - Rissa Johnson OCCA - 07/10/2023 12:11 PM EDT TC to patient who verbalized understanding of providers message below. Patient asking for medication to go to [facility] instead of [place].Please advise. Thank you. BERNADETTE James * Telephone Encounter - Candie Talley PA-C - 07/10/2023 11:31 AM EDT Please call patient let her know that I sent in a prescription for a topical antifungal called terconazole. She is unable to take Diflucan (the oral tablet) due to interactions with her medications. Candie Talley PA-C * Telephone Encounter - Tasneem Lock - 07/09/2023 4:01 PM EDT Pt called to see if she could get something for a yeast infection. She states she is on an antibiotic and always gets a yeast infection when taking them. Scheduled for ER follow up 07/20 documented in this encounterMercy Health [facility]09-15-2023 Miscellaneous Notes* Telephone Encounter - Mike [...] you. Mike Phan RN documented in this encounterMercy Health [facility]09-13-2023 Miscellaneous Notes* Telephone Encounter - Susy [...] and advise. Tasneem Lock documented in this encounterMercy Health [facility] Hospital09-05-2023 Discharge summary Author Levar Handy [facility] June 02, 2023 4:56pm Note Date/Time June 02, 2023 4:56pm [facility] Medical Records Department [address] [place] [address] Emergency Department Summary 06/02/23 MR#: [id number] Acct: [id number] Name: GRACIE BANUELOS Rep #:[id number] : 1965 58 From: Levar Handy DO PCP: SOILA EASTON, MINI LAB OPERATOR-C Status:REG ER Location: ED HPI History of [...] oxygen and everything she needs at home. [facility] Medical History Abdominal pain Alcohol abuse [...] Q6H antibiotic 11/01/22 [History Last Taken Unknown] edibge-fxedzthq-oveqafw 24,000-76,000-120,000 unit capsule,delayed rel (Creon) 1cap PO [...] Allergy Hives Verified 11/01/22 19:37 hydrocodone [From [place]] AdvReac Itching Verified 11/01/22 19:37 Family History [...] % (Auto) 63.1 Lymph % (Auto) 25.1 [place] % (Auto) 6.4 Eos % (Auto) 3.6 [...] your Primary Care Provider. Call [facility] ([phone]) or report to the closest Emergency Room. Call 911 if necessary. 06/02/23 1656 <Electronically signed by Levar Handy DO> Cosigner Signature (if applicable): CC: CARMEN EASTON ~ Signed [facility] Work Phone: 1(723) 990-163508-21-2023 Miscellaneous Notes* Telephone Encounter - Eva Martines RN - 05/18/2023 1:32 PM EDT Last Office Visit: 04/12/2023 Future Office Visit: None Requested Prescriptions Pending Prescriptions Disp Refills lisinopril (ZESTRIL) 10 mg tablet 30 tablet 11 Sig: Take 1 tablet by mouth once daily. documented in this encounterMercy Health [facility] Hospital07-19-2023 Instructions* Patient Instructions* Candie Talley PA-C - 04/15/2023 1:24 PM EDT Double check with nurse at [facility] to see if it's safe to take Cyclobenzaprine (Flexeril)at night with Tylor and Mirtazapine (Remeron) documented in this encounterMercy Health [facility]sburg Hospital07-19-2023 History of Present illness Narrative* Candie Talley PA-C - 04/15/2023 12:43 PM EDT [...] Stage 3 severe COPD by GOLD classification ([facility]) 2018 Tobacco use greater than [...] 1 tablet by mouth daily at bedtime. lzjdda-emhnenlq-iuyuuxu (CREON 24) 24,000-76,000 -120,000 unit delayed release [...] Take 1 tablet by mouth once daily. ilvupdbxnit-tvmdbfsta-ddqxolfx (TRELEGY ELLIPTA) 100-62.5-25 mcg inhalation powder DAILY [...] symptoms occur. Patient agreeable to treatment plan. Candie Talley PA-C documented in this encounterMercy Health [facility] Hospital06-27-2023 Miscellaneous Notes* Telephone Encounter - Maribeth [...] you. Maribeth Owen LPN documented in this encounterMercy Health [facility] Hospital04-05-2023 Miscellaneous Notes* Telephone Encounter - Soila [...] problem. Efren Thao LPN documented in this encounterMercy Health Perrysburg Hospital03-03-2023 History of Present illness Narrative* Soila Easton [...] airways disease (HCC) Alcohol dependence in remission ([facility]) 07/10/2015 Alcohol use disorder 08/27/2017 Alcohol-induced pancreatitis Alcoholic hepatitis 05/18/2012 Alcoholic liver disease (HCC) 11/16/2013 Anemia Anxiety with depression Asthma Chronic hypoxemic respiratory failure (HCC) COPD (chronic obstructive pulmonary disease) ([facility]) 05/25/2012 DDD (degenerative disc disease), [...] Stage 3 severe COPD by GOLD classification ([facility]) 2018 Tobacco use greater than [...] Puffs as instructed four times dailyas needed. pgeommcisbn-azupcrymr-fvxxkbve (TRELEGY ELLIPTA) 100-62.5-25 mcg inhalation powder DAILY yytqdk-sfvrgpbe-nvxwogi (CREON 24) 24,000-76,000 -120,000 unit delayed release [...] plan. Soila Easton APRN.CNP documented in this encounterMercy Health [facility] Hospital03-02-2023 Miscellaneous Notes* Telephone Encounter - Mihaela [...] did not really show any major issues RegardsMisbah MD documented in this encounterMercy Health Perrysburg Hospital03-02-2023 Miscellaneous Notes* Telephone Encounter - Mihaela [...] to find transportation for EMG scheduled in [place]. Patient is requesting to have EMG done at [facility]. Order faxed per patient request. Referral placed. EMG not cancelled yet incase unable to schedule with [facility]. Janene Grimm RN documented in this encounterMercy Health Perrysburg Hospital03-01-2023 Instructions* Patient Instructions* Mariluz Verduzco PA-C [...] upwards. Please reach out with any questions. [facility] address: [address] [place] [address] Dr. Ponce [place] [address] documented in this encounterMercy Health Perrysburg Hospital03-01-2023 History of Present illness Narrative* Mariluz Verduzco PA-C - 11/26/2022 1:16 PM EST Images from the original note were not included. Neurology Outpatient Clinic Date: November 26, 2022 Patient Name: Gracie Banuelos Referring physician: Misbah Bullock [facility] [address] Consult requested for paresthesias by Dr. Elkins. Recommendations will be communicated via shared medical record or US mail. Primary physician: [place] [address] Reason for Evaluation: Paresthesias Subjective HPI Gracie [...] by mouth once daily. 30 tablet 11 lclftzgawzd-hfszctetb-spnslmse (TRELEGY ELLIPTA) 100-62.5-25 mcg inhalation powder DAILY yukecp-pmswtdbt-qzfjyqi (CREON 24) 24,000-76,000 -120,000 unit delayed release [...] Extremity RIGHT LEFT Deltoid / 5/5 Biceps / 5/ Triceps / 5/ Wrist Extension / 5/ Wrist Flexion 01/30 5/ Finger Flexion / 5/ Finger Extension 01/30 5/ Finger Abd /01 30/ Finger Add 01/30 01/30 MUSCLES Lower Extremity RIGHT LEFT Hip Flexion 01/30 5/5 Hip Extension 01/30 5/ BiFem (Knee Flex) 01/30 5 Quads (Knee Ext) 01/30 01/30 Gastroc (Plantflx) 01/30 01/30 TibAnt (Dorsiflx) 01/30 01/30 FlxHLong (Toe Flex) 01/30 01/30 ExtHLong (Toe Ext) 01/30 01/30 Sensory Examination Right lower extremity: Temperature is [...] 2/4 2/4 Knee 1/4 1/4 Ankle 1/4 1/4 Loving Response Negative Negative Coordination: finger-to- nose-finger intact bilaterally and iwxa-qo-axdo intact bilaterally. Gait: Patient's gait is normal [...] which included preparing to see the patient, hegy-lo-akrm patient care, completing clinical documentation, obtaining and/or reviewing separately obtained history, performing a medically appropriate examination, counseling and educating the pat ient/family/caregiver, and ordering medications, tests, or procedures. Mariluz Verduzco PA-C [facility] Neurology This document has been created with the use of voice recognition technology. It may contain inaccuracies: (e.g. misspellings, inaccurate syntax or word sense) that have escaped review. documented in this encounterMercy Health [facility]02-28-2023 History of Present illness Narrative* Misbah [...] Stage 3 severe COPD by GOLD classification ([facility]) 2018 Tobacco use greater than [...] inhaler lisinopril (ZESTRIL, PRINIVIL) 10 mg tablet rpkrakclhsa-sqhwookwp-djqewcji (TRELEGY ELLIPTA) 100-62.5-25 mcg inhalation powder djfcyc-imblrtov-qwrdncc (CREON 24) 24,000-76,000 -120,000 unit delayed release [...] medication. Misbah Elkins MD documented in this encounterMer[facility]02-28-2023 Nurse Note* Eda Moore LPN - 11/25/2022 9:53 AM EST and had put a hold on eye surgery for now. Patient is going to main [facility] on December 03 for possible surgery documented in this encounterMercy [facility]02-15-2023 Miscellaneous Notes* Telephone Encounter - Eileen [...] its not really worsening. documented in this encounterMercy Health [facility]02-14-2023 History of Present illness Narrative* Sonja [...] 11, 2022 4:49 PM documented in this encounterMercy Health [facility]02-14-2023 History of Present illness Narrative* Misbah [...] [facility] and was transferred to [facility] and for oculoplastics. No interventions were made by occulopastics as she got better on abx on her own In the [facility] she had an episode of respiratory [...] inhaler lisinopril (ZESTRIL, PRINIVIL) 10 mg tablet seobflotwud-vbcbaenei-bechaltf (TRELEGY ELLIPTA) 100-62.5-25 mcg inhalation powder fbqnrb-vsjameqb-miebfpu (CREON 24) 24,000-76,000 -120,000 unit delayed release [...] K86.0 Misbah Elkins MD documented in this encounterMercy [facility]02-09-2023 NoteTeaching Physician Note: I have seen and examined the patient and supervised the procedures performed. I personally obtained the ochoa portions of the history and the ophthalmologic exam. I reviewed the resident's documentation and discussed the patient's history and examination with the resident. I agree with the resident's decision making as documented in the resident's note. Yumiko Guerin [facility]CC[facility]-09-[address] Chad Garg [facility] November 06, 2022 3:03pm Note Date/Time November 06, 2022 9 :43am [facility] Medical Records Department [address] [place] [address] Progress Note - Hospitalist 11/06/2240 MR#: [id number] Acct: [id number] Name: GRACIE BANUELOS Rep #:[id number] : 1965 57 From: Anastacia Bonilla MD PCP: KEN STAHLC Status:ADM IN Location: [place] [address] 1 Reason for Visit Reason for Visit: Diagnoses [...] 74.3 H, Lymph % (Auto) 11.1 L, [place] % (Auto) 9.9, Eos % (Auto) 1.6, [...] prophylaxis: heparin Charges/Coding Visit Charges Inpatient E&M: 39006 Subs Hosp L2 11/06/22 1503 <Electronically signed by Anastacia Bonilla MD> Cosigner Signature (if applicable): CC: ~ Signed [facility] Work Phone: [phone]) 106-294102-09-[address] Iverson [facility] November 06, 2022 2:28pm Note Date/Time November 06, 2022 2 :28pm [facility] Medical Records Department [address] [place] [address] Progress Note - Nephrology 11/06/22 1427 MR#: [id number] Acct: [id number] Name: GRACIE BANUELOS Rep #:[id number] : 1965 57 From: Courtney sanders MD PCP: SOILA EASTON, MINI LAB OPERATOR-C Status:ADM IN Location: [place] [address] Subjective Subjective No new complaints. Breathing looks [...] 74.3 H, Lymph % (Auto) 11.1 L, [place] % (Auto) 9.9, Eos % (Auto) 1.6, [...] Acute renal failure. Prior to admission at [facility] and at the time ofadmission at [facility] creatinine was normal. She was subsequently transferred to [facility]. Discharge creatinine was 1.5. Urine analysis [...] DC fluids Can DC Frankel catheter 11/06/22 2703 <Electronically signed by Courtney Iverson MD> Cosigner Signature (if applicable): CC: ~ Signed [facility] Work Phone: [phone]) [phone] History of Present illness Narrative* Yumiko Guerin [...] Seen with Dr. Guerin documented in this [id number] Sebastian [facility] November 06, 2022 8:41am Note Date/Time November 06, 2022 5 :54am [facility] Medical Records Department [address] [place] [address] Progress Note - Health Services Coordinator 11/06/22 0553 MR#: [id number] Acct: [id number] Name: GRACIE BANUELOS Rep #:[id number] : 1965 57 From: Gonzalo Sebastian DO [...] medicationsas indicated. This note was generated with FameBit dictation software. It may contain incorrectwords, spelling, [...] 74.3 H, Lymph % (Auto) 11.1 L, [place] % (Auto) 9.9, Eos % (Auto) 1.6, [...] Psych cooperative Charges/Coding Visit Charges Inpatient E&M: 72662 Subs Hosp L2 11/06/22 0841 <Electronically signed by Gonzalo Sebastian DO> Cosigner Signature (if applicable): CC: ~ Signed [facility] Work Phone: [phone]) [phone] Bonilla [facility] November 05, 2022 4:09pm Note Date/Time November 05, 2022 1 2:55pm [facility] Medical Records Department [address] [facility] [place] [place] [address] Progress Note - Hospitalist 11/05/22 1252 MR#: [id number] Acct: [id number] Name: GRACIE BANUELOS Rep #:[id number] : 1965 57 From: Anastacia Bonilla MD PCP: SOILA EASTON, MINI LAB OPERATOR-C Status:ADM IN Location: ICU CVICU20 3-1 Reason [...] Clarity Clear, Urine pH 6.0, Ur Specific [place] 1.015, Urine Protein 30 H, Urine Glucose [...] 85.4 H, Lymph % (Auto) 4.8 L, [place] % (Auto) 4.4, Eos % (Auto) 0.6, [...] prophylaxis: heparin Charges/Coding Visit Charges Inpatient E&M: 27675 Subs Hosp L2 11/05/22 7319 <Electronically signed by Anastacia Bonilla MD> Cosigner Signature (if applicable): CC: ~ Signed [facility] Work Phone: [phone]) [phone] Koram [facility] November 05, 2022 4:07pm Note Date/Time November 05, 2022 9 :[address] [place] [address] Medical Records Department [address] [place] [address] Pharmacokinetic/Renal -Consult 11/05/22940 MR#: [id number] Acct: [id number] Name: GRACIE BANUELOS Rep #:[id number] : 1965 57 From: Donn Wilson PCP: SOILA EASTON, MINI LAB OPERATOR-C Status:ADM IN Y Location: ICU CVICU20 3-1 [...] as required. Follow-Up Labs: Trough Vancomycin - 2.10 @1330 before 1400 dose 11/05/22 0945 <Electronically signed by Donn Wilson > Date _ Donn Wilson 11/05/22 1607 <Electronically signed by Anastacia cisneros MD> Cosigner Signature (if applicable): Date Anastacia Bonilla MD CC: ~ Signed [facility] Work Phone: [phone]) 199-859402-08-[address] Iverson [facility] November 05, 2022 10:42am Note Date/Time November 05, 2022 1 0:42am [facility] Medical Records Department [address] [facility] [place] [address] Progress Note - Nephrology 11/05/22 1037 MR#: [id number] Acct: [id number] Name: GRACIE BANUELOS Rep #:[id number] : 1965 57 From: Courtney sanders MD PCP: SOILA EASTON, MINI LAB OPERATOR-C Status:ADM IN Location: ICU CVICU20 3-1 Subjective [...] Clarity Clear, Urine pH 6.0, Ur Specific [place] 1.015, Urine Protein 30 H, Urine Glucose [...] 85.4 H, Lymph % (Auto) 4.8 L, [place] % (Auto) 4.4, Eos % (Auto) 0.6, [...] Acute renal failure. Prior to admission at [facility] and at the time ofadmission at [facility] creatinine was normal. She was subsequently transferred to [facility]. Discharge creatinine was 1.5. Urine analysis [...] Cosigner Signature (if applicable): CC: ~ Signed [facility] Work Phone: [phone]) [phone] Sebastian [facility] November 05, 2022 9:58am Note Date/Time November 05, 2022 5 :52am [facility] Medical Records Department [address] [place] [address] Progress Note - Health Services Coordinator 11/05/22 0551 MR#: [id number] Acct: [id number] Name: GRACIE BANUELOS Rep #:[id number] : 1965 57 From: Gonzalo Sebastian DO PCP: SOILA EASTON MINI LAB OPERATOR-C Status:ADM IN Location: ICU CVICU20 3-1 Assessment [...] medicationsas indicated. This note was generated with FameBit dictation software. It may contain incorrectwords, spelling, [...] Clarity Clear, Urine pH 6.0, Ur Specific [place] 1.015, Urine Protein 30 H, Urine Glucose [...] 85.4 H, Lymph % (Auto) 4.8 L, [place] % (Auto) 4.4, Eos % (Auto) 0.6, [...] Behavior: restless Charges/Coding Visit Charges Inpatient E&M: 83685 Subs Hosp L3 11/05/22 0958 <Electronically signed by Gonzalo Sebastian DO> Cosigner Signature (if applicable): CC: ~ Signed [facility] Work Phone: [phone] Bonilla [facility] November 05, 2022 7:20am Note Date/Time November 04, 2022 9 :22pm [facility] Medical Records Department [address] [place] [address] Pharmacokinetic/Renal -Consult 11/04/222119 MR#: [id number] Acct: [id number] Name: GRACIE BANUELOS Rep #:[id number] : 1965 57 From: Sudhir Lott [facility] PCP: SOILA EASTON MINI LAB OPERATOR-C Status:ADM IN Y Location: ICU CVICU20 3-1 [...] 11/04/222121 <Electronically signed by Sudhir Cody [facility]> Date _ Sudhir Stanton [facility] 11/05/22 0720 <Electronically signed by Anastacia cisneros MD> Cosigner Signature (if applicable): Date Anastacia Bonilla MD CC: ~ Signed [facility] Work Phone: [phone] Progress note Author [facility] November 04, 2022 3:49pm Note Date/Time November 04, 2022 1 0:22[facility] Medical Records Department [address] [place] [address] Progress Note - Hospitalist 11/04/22 1020 MR#: [id number] Acct: [id number] Name: GRACIE BANUELOS Rep #:[id number] : 1965 57 From: Anastacia Bonilla MD PCP: SOILA EASTON, MINI LAB OPERATOR-C Status:ADM IN Location: ICU CVICU 3-1 Subjective [...] 81.2 H, Lymph % (Auto) 5.6 L, [place] % (Auto) 4.6, Eos % (Auto) 5.9 [...] prophylaxis: lovenox Charges/Coding Visit Charges Inpatient E&M: 89438 Subs Hosp L3 Reason for Visit Reason for Visit: Diagnoses Chronic obstructive pulmonary disease, unspecified (11/01/22) Acute kidney failure, unspecified (11/01/22) Nausea with vomiting, unspecified (11/01/22) Diarrhea, unspecified (11/01/22) 11/04/22 8056 <Electronically signed by Anastacia Bonilla MD> Cosigner Signature (if applicable): CC: ~ Signed [facility] Work Phone: [phone] Iverson [facility] November 04, 2022 11:44am Note Date/Time November 04, 2022 1 1:44am [facility] Medical Records Department [facility] [place] [address] Consultation - Nephrology 11/04/22 1139 MR#: [id number] Acct: [id number] Name: GRACIE BANUELOS Rep #:[id number] : 1965 57 From: Courtney sanders MD PCP: SOILA EASTON, MINI LAB OPERATOR-C Status:ADM IN Location: ICU CVICU20 3-1 Assessment & Plan Assessment/Plan (1) Acute kidney injury: PLAN: Acute renal failure. Prior to admission at [facility], at the time of admission at [facility] creatinine was normal. She was subsequently transferredto [facility]. Discharge creatinine was 1.5. Urine analysis [...] have significant diarrhea prior to admission to [facility]. HPI Consult Data Date of Consult: 11/04/22 HPI Narrative Reason for Consultation: Acute renal failure HPI Narrative: GRACIE BANUELOS, is a 57 F who presents to the hospital with severe diarrhea. Nephrology on consultation for acute renal failure. No prior kidney disease. Baseline creatinine was normal. She was initially admitted to [facility] followed by [facility]. Admission diagnosis was orbital cellulitis. Was seen by ophthalmology at [facility] as well. Admission creatinine was normal. [...] increased significantly. Getting a CT chest abdomen. [facility] Medical History Abdominal pain Alcohol abuse [...] Q6H antibiotic 11/01/22 [History Last Taken Unknown] tkdfbf-iwsegudb-ztjhxaq 24,000-76,000-120,000 unit capsule,delayed rel (Creon) 1cap PO [...] Allergy Hives Verified 11/01/22 19:37 hydrocodone [From [place]] AdvReac Itching Verified 11/01/22 19:37 Family History [...] 81.2 H, Lymph % (Auto) 5.6 L, [place] % (Auto) 4.6, Eos % (Auto) 5.9 [...] Iverson MD> Cosigner Signature (if applicable): CC: MINI LAB OPERATOR-C nAi Eduardo; MINI LAB OPERATOR-C SOILA EASTON; Dr. Ciarra Ross MD; Dr. Freddie Perdue MD; Dr. Gonzalo Sebastian DO; Dr. Courtney Iverson MD; Dr. Olivier Coffman MD; Dr. Lisa cOhoa MD; Dr. Dieter Harrison MD~ Signed [facility] Work Phone: [phone] Sebastian [facility] November 04, 2022 10:07am Note Date/Time November 04, 2022 7 :12am [facility] Medical Records Department [address] [place] [address] Progress Note - Health Services Coordinator 11/04/2209 MR#: [id number] Acct: [id number] Name: GRACIE BANUELOS Rep #:[id number] : 1965 57 From: Gonzalo Sebastian DO [...] medicationsas indicated. This note was generated with FameBit dictation software. It may contain incorrectwords, spelling, [...] 81.2 H, Lymph % (Auto) 5.6 L, [place] % (Auto) 4.6, Eos % (Auto) 5.9 [...] affect normal Charges/Coding Visit Charges Inpatient E&M: 75072 Subs Hosp L2 11/04/22 1007 <Electronically signed by Gonzalo Sebastian DO> Cosigner Signature (if applicable): CC: ~ Signed [facility] Work Phone: 1(141) 187-754802-06-[address] Bonilla [facility] November 03, 2022 3:59pm Note Date/Time November 03, 2022 3 :06pm [facility] Medical Records Department [address] [place] [address] Progress Note - Hospitalist 11/03/22 1501 MR#: [id number] Acct: [id number] Name: GRACIE BANUELOS Rep #:[id number] : 1965 57 From: Anastacia Bonilla MD PCP: SOILA EASTON MINI LAB OPERATOR-C Status:ADM IN Location: ICU CVICU20 3-1 Subjective [...] 74.5 H, Lymph % (Auto) 11.6 L, [place] % (Auto) 6.9, Eos % (Auto) 5.0, [...] 94.5 H, Lymph % (Auto) 2.2 L, [place] % (Auto) 1.9, Eos % (Auto) 0.1, [...] prophylaxis: lovenox Charges/Coding Visit Charges Inpatient E&M: 85471 Subs Hosp L3 Reason for Visit Reason for Visit: Diagnoses Chronic obstructive pulmonary disease, unspecified (11/01/22) Acute kidney failure, unspecified (11/01/22) Diarrhea, unspecified (11/01/22) 11/03/22 9923 <Electronically signed by Anastacia Bonilla MD> Cosigner Signature (if applicable): CC: ~ Signed [facility] Work Phone: [phone]) [phone] Sebastian [facility] November 03, 2022 8:27am Note Date/Time November 03, 2022 7 :12am [facility] Medical Records Department [address] [place] [address] Consultation - Health Services Coordinator 11/03/22 0710 MR#: [id number] Acct: [id number] Name: GRACIE BANUELOS Rep #:[id number] : 1965 57 From: Gonzalo Sebastian DO PCP: SOILA EASTON MINI LAB OPERATOR-C Status:ADM IN Location: ICU CVICU20 3-1 Assessment [...] medicationsas indicated. This note was generated with Visicon Technologiesation software. It may contain incorrectwords, spelling, and [...] medication. The patient was recently admitted in [place] for periorbital cellulitis. The patient reported to [...] with IV Solu-Medrol, Ativan and aerosol treatments. [facility] Medical History Abdominal pain Alcohol abuse [...] Q6H antibiotic 11/01/22 [History Last Taken Unknown] xwhgyo-jddcwxbw-auyetjf 24,000-76,000-120,000 unit capsule,delayed rel (Creon) 1cap PO [...] Allergy Hives Verified 11/01/22 19:37 hydrocodone [From [place]] AdvReac Itching Verified 11/01/22 19:37 Family History [...] 74.5 H, Lymph % (Auto) 11.6 L, [place] % (Auto) 6.9, Eos % (Auto) 5.0, [...] 94.5 H, Lymph % (Auto) 2.2 L, [place] % (Auto) 1.9, Eos % (Auto) 0.1, [...] 20:11 EST Reading Location ID and State: [facility] / [place] , Service support , Charges/Coding Visit Charges Inpatient E&M: 43023 Init Hosp L3 11/03/22 0827 <Electronically signed by Gonzalo Sebastian DO> Cosigner Signature (if applicable): CC: MINI LAB OPERATOR-C Ani Eduardo; MINI LAB OPERATOR-C SOILA EASTON; Dr. Ciarra Ross MD; Dr. Freddie Perdue MD; Dr. Gonzalo Sebastian DO; Dr. Olivier Coffman MD; Dr. Lisa Ochoa MD; Dr. Dieter Harrison MD~ Signed [facility] Work Phone: [phone] Ross [facility] November 02, 2022 9:51pm Note Date/Time November 02, 2022 9 :10pm [facility] Medical Records Department [address] [place] [address] Progress Note 11/02/222107 MR#: [id number] Acct: [id number] Name: GRACIE BANUELOS Rep #:[id number] : 1965 57 From: Ciarra Ross MD PCP: SOILA OLDER, MINI LAB OPERATOR-C Status:ADM IN Location: ICU CVICU20 3-1 Progress [...] Cosigner Signature (if applicable): CC: ~ Signed [facility] Work Phone: [phone]) [phone] Fatima [facility] November 02, 2022 8:23pm Note Date/Time November 02, 2022 8 :19pm [facility] Medical Records Department [address] [place] [address] Progress Note - Hospitalist 11/02/222014 MR#: [id number] Acct: [id number] Name: GRACIE BANUELOS Rep #:[id number] : 1965 57 From: Mahamed Fatima DO PCP: SOILA EASTON, MINI LAB OPERATOR-C Status:ADM IN Location: ICU CVICU20 3-1 Hospitalist [...] of critical care time. Procedures Hospitalists Procedures: 03803 Critial Care 1st Hr 11/02/222022 <Electronically signed by Mahamed Fatima DO> Cosigner Signature (if applicable): CC: ~ Signed [facility] Work Phone: [phone]) [phone] Ochoa [facility] November 02, 2022 12:07pm Note Date/Time November 02, 2022 1 2:07pm [facility] Medical Records Department [address] [place] [address] Progress Note - Hospitalist 11/02/22 1156 MR#: [id number] Acct: [id number] Name: GRACIE BANUELOS Rep #:[id number] : 1965 57 From: Lisa Ochoa MD PCP: SOILA EASTON, MINI LAB OPERATOR-C Status:ADM IN Location: [place] [address] Subjective Subjective Reports still feeling little dehydrated [...] % (Auto) 66.4, Lymph % (Auto) 16.8L, [place] % (Auto) 11.3 H, Eos % (Auto) [...] (Auto) 62.9, Lymph % (Auto) 17.1 L, [place] % (Auto) 13.2 H, Eos % (Auto) [...] alcoholic hepatitis, COPD, GERD who presented to [facility] 11/01 with poor urinary output and flank pain for 1 day. She was recently [facility] being transferred from [facility] with right orbital cellulitis for acute [...] documentation, 30minutes Charges/Coding Visit Charges Inpatient E&M: 58814 Subs Hosp L2 11/02/22 1207 <Electronically signed by Lisa Ochoa MD> Cosigner Signature (if applicable): CC: ~ Signed [facility] Work Phone: [phone]) [phone] History and physical note Author Dr. Ross [facility] November 02, 2022 1:42am Note Date/Time November 01, 2022 1 0:21pm [facility] Medical Records Department [address] [place] [address] H&P Exam - Hospitalist 11/01/22 2221 MR#: [id number] Acct: [id number] Name: GRACIE BANUELOS Rep #:[id number] : 1965 57 From: Ciarra Ross MD PCP: SOILA EASTON MINI LAB OPERATOR-C Status:ADM IN Location: [facility] TD909-1 HPI - General General Date of Admission: 11/01/22 Date of Service: 11/01/22 Chief Complaint: Poor urine output, bilateral flank pain- 1 day HPI Narrative BradyCherry BANUELOS, is a 57 F who presents the above. Patient was recently discharged from [facility] after being transferred from [facility] with right orbital cellulitis for acute ophthalmology evaluation. Over the course of[facility] stay [facility], patient developed severe diarrhea with resultantAKI. [...] Q6H antibiotic 11/01/22 [History Last Taken Unknown] lshwde-ryiwgpwh-zbitzhc 24,000-76,000-120,000 unit capsule,delayed rel (Creon) 1cap PO [...] Allergy Hives Verified 11/01/22 19:37 hydrocodone [From [place]] AdvReac Itching Verified 11/01/22 19:37 Family History [...] diarrhea Patient with recent CHUY from hospitalization [facility], reportedly improved Admitted creatinine of 2.05 [...] the bedside. Charges/Coding Visit Charges Inpatient E&M: 65948 Init Hosp L3 11/02/22 0142 <Electronically signed by Ciarra Ross MD> Cosigner Signature (if applicable): CC: MINI LAB OPERATOR-C SOILA EASTON; Dr. Ciarra Ross MD~ Signed [facility] Work Phone: [phone]) 491-395302-05-[address] Tang [facility] November 01, 2022 10:20pm Note Date/Time November 01, 2022 8 :27pm [facility] Medical Records Department [address] [place] [address] Emergency Department Summary 11/01/22 MR#: [id number] Acct: [id number] Name: GRACIE BANUELOS Rep #:[id number] : 1965 57 From: Edmund Tang MD [...] for 3 days. Patient was transferred to [facility]. Records were reviewed. Patient did have [...] similar symptoms: No Recent Illness/Hospitalization: No PFSH PFS Medical History Abdominal pain Alcohol abuse Alcoholic [...] Anxiety 04/19/19 [History Last Taken 06/10/21 21:00] ubynkv-uvsebvwe-bakhaop 24,000-76,000-120,000 unit capsule,delayed rel 3 ea PO [...] Allergy Hives Verified 11/01/22 19:37 hydrocodone [From [place]] AdvReac Itching Verified 11/01/22 19:37 Family History [...] Acute hyponatremia Disposition Disposition: Acute Care Hospital [facility] What to do if you have Problems For any increased pain, shortness of breath, bleeding, nausea or vomiting, chestpain, or any unexpected problems, contact your Primary Care Provider. Call [facility] ([phone]) or report to the closest Emergency Room. Call 911 if necessary. 11/01/220 <Electronically signed by Edmund Tang MD> Cosigner Signature (if applicable): CC: MINI LAB OPERATORMiriam SOILA EASTON ~ Signed [facility] Work Phone: 1([phone]) 633-196802-03-2023 History of Present illness Narrative* Misbah Elkins MD - 10/31/2022 11:46 AM EST Reason for Visit Patient presents with: Hospital F/U: follow up from [facility] and , right eye cellulitis mass behind eye and mass found in lungs per patient Gracie Banuelos is a 57 year old female who presents here today for Above Complaints.. Health Maintenance MAMMOGRAM HPI Was [facility] with [facility] and [facility] [facility] Prior to it becoming [...] Stage 3 severe COPD by GOLD classification ([facility]) 2018 Tobacco use greater than [...] inhaler lisinopril (ZESTRIL, PRINIVIL) 10 mg tablet vrcrnoriuug-zwlwksxdw-kjrygbyt (TRELEGY ELLIPTA) 100-62.5-25 mcg inhalation powder qhgpbx-mbdjccey-slvkkss (CREON 24) 24,000-76,000 -120,000 unit delayed release [...] tobacco. Misbah Elkins MD documented in this encounterMer[facility]02-01-2023 NoteSend Summary: Discharge Summary Providers: Provider RoleProvider Name ReferringCorrect Info, Needed Jessica Hammond PrimaryPratikerSoila PrimaryFree, Text Entry Note Recipients: Tai Peoples MD Correct Gudelia, MD Pretty Free, Text Entry, Soila Devi, TRANSMISSIONS SYSTEMS OPERATOR-LEGAL EXECUTIVE ASSISTANT Jessica Ellis MD Discharge: Summary: Admission Date: .23-Oct-2022 23:56:00 Discharge Date: 29-Oct-2022 Attending Physician at Discharge: Jessica Ellis Admission Reason: Preseptal Cellulitis(1) Final Discharge Diagnoses: Preseptal cellulitis of right eye Procedures: none Condition at Discharge: Fair Disposition at Discharge: .Home Vital Signs: T PRBPMAPSpO2 Value36.04290039/6397% Date/Time10/29 5:122/1 5:122/1 5:122/1 5:122/1 5:12 Range(36.1C [...] vs. infiltrative mass. Vanc/zosyn were started at [facility]. Oculoplastic were consulted and there was a [...] with activity Additional Orders: Additional Instructions: Dear Vin, You presented to us as transfer from [facility] for a possible biopsy of the right [...] Care Provider Scheduled Date/Time: 15-Dec-2022 16:00 Location: [address] [place] [address], [address] [place] [phone] fax Follow-Up Appointment 02: Physician/Dept/Service: Ophthalmology: Dr Ortega Scheduled Date/Time: 03-Dec-2022 15:30 Location: [facility] [address] , [address] [facility] [address] Follow-Up Appointment 03: Physicia (more content not included)...[facility]01-31-2023 NoteThis report has been cancelled.[facility]01-27-2023 Note History of Present Illness: /Lactating: Are You no Are You Currently Breastfeedingno Admission Reason: Preseptal Cellulitis HPI: She is a 57 year old woman with history of COPD (GOLD Stage 3, FEV1 55%), anxiety, HTN, DLD who is presenting as a transfer to [facility] from [facility] for further management of preseptal cellulitis vs. [...] she presented to the ER initially in [place]. A brief summary of her course prior to arrival to [facility] is seen in the two paragraphs below. On or about 10/19 she had pain in her right eye that worsened to the point she was unable to tolerate it at home with ibuprofen so she presented to the [place] [facility]. At that time she had a CT scan of her orbits which showed right orbital preseptal and orbital cellulitis without evidence of orbital compartment syndrome. She had elevated WBC count to 13.9 with neutrophilic predominance. She had CRP elevated to 42.6 and ESR of 75 mm/h. She was given one dose of clindamycin in the [place] ER. On 10/20 she arrived at the [facility] and evaluated by ophthalmology who recommended MRI [...] On 10/22 ophthalmology recommended transfer to or [facility] for oculoplastics care given need for potential cut-down biopsy which was unable to be accommodated at [facility]. When I spoke with the patient her biggest concerns were continued pain of the right eye and surrounding tissue as well as the possibility that this could be a cancer causing her symptoms. Regarding the pain, it is 9/10 currently and radiates from the right eyelid down to her cheek and into her temples. It is exacerbated with movement, especially the transit from [facility]. It was controlled at OSH with oxycodone [...] daily Mirtazapine 45mg QHS Pertinent Labs/Imaging at [facility]/[place]: ESR/CRP elevated to 75 and 42 respectively. Blood Cx NGTD at [place] on arrival Rheumatoid Factor negative C. Diff [...] conjunctivitis. There is enha (more content not included)...[facility]01-27-2023 NoteDISCHARGE SUMMARY PATIENT INFORMATION: Name: Gracie Banuelos Date of Admission: 10/20/2022 8:44 AM Discharge Date: 10/23/2022 : 1965 57 year old Admitting Physician: Robby Bush MD PCP: No primary care provider on file. Discharge Physician: ROBBY BUSH TRANSFERRED TO [facility] COURSE AND OUTCOME: Gracie Banuelos is a 57 year old year old female who presented to [facility] on 10/20/2022 8:44 AM. Ms. Banuelos is a 57 yof with COPD, active tobacco abuse, anxiety, HTN, sent from OSH [[place] [facility]] for evaluation of right eye swelling, erythema and pain with movement. Infectious diseases, ENT, and Ophthalmology is consulted and she was started on empiric abx. MRI orbit Abnormal infiltration throughout the right retroantral and extraconal fat as well as the pterygopalatine fossa and diffusely throughout the right fruit buyer space with asymmetry of the muscles of mastication. ENT performed nasal endoscopy - without signs of fungal infection. ID recommended to hold antifungals Ophthalmology strongly recommended orbital biopsy to r/o infectious vs inflammation or lymphoma which could not be arranged at [facility]. Per ophthalmology recommendations and after discussing the patient, [facility]. I examined pt on day of discharge. She was resting comfortably in bed, reports blurry vision and pain in her right eye Periorbital erythema and swelling much improved but eye redness persisted. She was transferred to [facility] on night of 10/23 ~2100. I was not at hospital during the transfer Please do not hesitate to contact [facility] division of Hospital Medicine if you have any questions or concerns. It was a pleasure getting to take care of your patient during her hospital stay. INPT CONSULTS IP ENT CONSULT IP INFECTIOUS DISEASE CONSULT F/U APPTS No follow-up provider specified. DIET: regular ACTIVITY: No restrictions DISPO: Discharged to TRANSFERRED TO [facility] []Home, []HHC, []SNF, []ECF, []Hospice, []AMA [...] capsule TREATMENT TEAM: Treatment Team: Emergency Medicine [place] Aide: Edwina Doyle; Consulting Physician: Sofy, Stevie Infectious Disease; PCNA: Sherron Briones; 1st call: Ani Thurman APRN-LEGAL EXECUTIVE ASSISTANT OBJECTIVE FINDINGS AT DISCHARGE: BP 119/90 (BP [...] SKIN: Normal coloration, warm, AND dry. NEURO: staff mechanical engineer grossly intact, normal speech, no lateralizing weakness. PSYCH: Awake, alert, oriented x 4. Affect appropriate. LABS Recent Labs 10/22/22 0958 WBC 16.0* HCT 35.3* PLT 332 Mix House Operator Assessment IMAGING: CT CHEST W/O CONTRAST Result [...] emphysema is p (more content not included)...[facility] [id number] NoteDISCHARGE SUMMARY PATIENT INFORMATION: Name: Gracie Banuelos Date of Admission: 10/20/2022 8:44 AM Discharge Date: 10/23/2022 : 1965 57 year old Admitting Physician: Robby Bush MD PCP: No primary care provider on file. Discharge Physician: ROBBY BUSH TRANSFERRED TO [facility] COURSE AND OUTCOME: Gracie Banuelos is a 57 year old year old female who presented to [facility] on 10/20/2022 8:44 AM. Ms. Banuelos is a 57 yof with COPD, active tobacco abuse, anxiety, HTN, sent from OSH [[place] [facility]] for evaluation of right eye swelling, erythema and pain with movement. Infectious diseases, ENT, and Ophthalmology is consulted and she was started on empiric abx. MRI orbit Abnormal infiltration throughout the right retroantral and extraconal fat as well as the pterygopalatine fossa and diffusely throughout the right fruit buyer space with asymmetry of the muscles of mastication. ENT performed nasal endoscopy - without signs of fungal infection. ID recommended to hold antifungals Ophthalmology strongly recommended orbital biopsy to r/o infectious vs inflammation or lymphoma which could not be arranged at [facility]. Per ophthalmology recommendations and after discussing the patient, [facility]. I examined pt on day of discharge. She was resting comfortably in bed, reports blurry vision and pain in her right eye Periorbital erythema and swelling much improved but eye redness persisted. She was transferred to [facility] on night of 10/23 ~2099. I was not at hospital during the transfer Please do not hesitate to contact [facility] division of Hospital Medicine if you have any questions or concerns. It was a pleasure getting to take care of your patient during her hospital stay. INPT CONSULTS IP ENT CONSULT IP INFECTIOUS DISEASE CONSULT Ophthalmology F/U APPTS No follow-up provider specified. DIET: regular ACTIVITY: No restrictions DISPO: Discharged to TRANSFERRED TO [facility] []Home, []HHC, []SNF, []ECF, []Hospice, []AMA [...] capsule TREATMENT TEAM: Treatment Team: Emergency Medicine Gericare Aide: Edwina Doyle; Consulting Physician: Stevie Goetz Infectious Disease; PCNA: Sherron Briones; 1st call: Ani Thurman APRN-LEGAL EXECUTIVE ASSISTANT OBJECTIVE FINDINGS AT DISCHARGE: BP 119/90 (BP [...] SKIN: Normal coloration, warm, AND dry. NEURO: staff mechanical engineer grossly intact, normal speech, no lateralizing weakness. PSYCH: Awake, alert, oriented x 4. Affect appropriate. LABS No results for input(s): NA, K, CL, CO2, BUN, CREATININE, GLU, WBC, HCT, PLT in the last 72 hours. Invalid input(s): HEMOGLOBIN Mix House Operator Assessment IMAGING: CT CHEST W/O CONTRAST Result [...] patent. Layering of (more content not included)...[facility] [id number] NoteDAILY PROGRESS NOTE Length of stay: 3 [...] Daily ARIPiprazole, 5 mg, Oral, At Bedtime prnckqp-tkttzw-loetcnme, 12,000 Units, Oral, 3x Daily with Meals [...] in differential Plans Ophthalmology recommends transfer to [facility]/ orbital surgeon for biopsy. Discussed with [...] care from the nursing staff, and support associate I personally reviewed patient medical record including blood work and radiology report Total time spent with patient is greater than 30 minutes more than 70% of the time is spent in direct patient care Dictated using voice recognition software. Document may contain errors not identified before finalizing. Robby Bush MD MS Pager # [phone] [id number] Telephone encounter Note* Telephone Encounter - Jaime Aggarwal MD - 10/23/2022 12:45 PM EST Spoke to Domonique, pt sister Explained rationale for biopsy and transfer All questions answered [facility] Work Phone: 1(471) 771-584001-26-2023 Miscellaneous Notes* Telephone Encounter - Jaime Aggarwal [...] Domonique back to discuss her sister Dx's [phone] ( PT will be home until 2:30 pm) documented in this [id number] Telephone encounter Note* Telephone Encounter - Airam Adam - 10/23/2022 12:08 PM EST PT's sister, Domonique calling in stating Dr. Aggarwal called and LVM for her regarding her sister that is inpatient. Please call Domonique back to discuss her sister Dx's [phone] ( PT will be home until 2:30 pm) [id number] NoteOTOLARYNGOLOGY HEAD AND NECK SURGERY DAILY PROGRESS [...] structures -ENT will continue to follow ENT [id number] Noman Prajapati MD PGY-3 Otolaryngology - Head AND Neck Surgery [facility] Service Pager: [phone]01-25-2023 History of Present illness Narrative* Uri Peña [...] to orbital surgeon for biopsy: O-P at [facility] or Uri Peña MD * Jaime [...] that did not have beds, sent to [facility] for possible admission for orbital cellulitis [...] from ENT - Recommend transfer to or [facility] for oculoplastics care. The patient will [...] with Dr. Kidd and documented in this [id number] NoteDAILY PROGRESS NOTE Length of stay: 2 [...] Daily ARIPiprazole, 5 mg, Oral, At Bedtime fdemblt-gfmjlk-dxoektrw, 12,000 Units, Oral, 3x Daily with Meals lisinopril, 10 mg, Oral, Daily PRN medications: guaiFENesin, ondansetron, diphenhydrAMINE, albuterol, vancomycin dosing pharmacy consult, HYDROmorphone HCl PF, hydrOXYzine BP 119/55 Pulse 90 Temp 98.5 ???F (36.9 ???C) (Oral) Resp 18 Ht 5' 3 (1.6 m) SpO2 91% PF 80 L/min Comment: COUGHING BMI 23.55 kg/m??? Intake/Output Summary (Last 24 hours) at 10/22/2022 1351 Last data filed at 10/22/2022 0514 Gross [...] care from the nursing staff, and support associate I personally reviewed patient medical record including blood work and radiology report Total time spent with patient is greater than 30 minutes more than 70% of the time is spent in direct patient care Dictated using voice recognition software. Document may contain errors not identified before finalizing. Robby Bush MD MS Pager # [phone] [id number] NoteOTOLARYNGOLOGY HEAD AND NECK SURGERY DAILY PROGRESS [...] lesions Intake/Output Summary (Last 24 hours) at 10/21/20221921 Last data filed at 10/21/2022 1014 Gross [...] structures -ENT will continue to follow ENT [id number] Note: ENT team attempted to scope patient two separate times earlier this afternoon after critical findings on the MRI were noted. Esdras Brambila DDS, MD ENT rotator ENT pager [phone] [facility] [id number] History of Present illness Narrative* Claire Ruiz [...] and Jaime Aggarwal MD documented in this [id number] Note10/21/22 1143 Assessment and Discharge Planning Evaluation READMISSION LESS THAN 30 DAYS No READMISSION RISK SCORE IS Low Risk INTERVIEWED Patient;Chart Review COGNITIVE STATUS Oriented to person, place, time and location Functional Status Age Appropriate;Ambulates with pediatrician/medical doctor (cane, walker, etc.) LIVING SITUATION Home - Own;Family PCP VERIFIED No ADMISSION INSURANCE Medicaid Medicaid [facility] HOME HEALTH CARE PRIOR TO ADMISSION [...] planning and needs as warranted. Katina Salas Him Manager (8:30-4:00)[facility] [id number] [facility] H[facility] AND PHYSICAL EXAMINATION SERVICE DATE: 10/20/2022 PRIMARY CARE PHYSICIAN: No primary care provider on file. CHIEF COMPLAINT: right eyelid swelling and erythema HPI: Ms. Banuelos is a 57 yof with COPD, active tobacco abuse, anxiety, HTN, sent from OSH [[place] [facility]] for evaluation of right eye swelling, [...] tablet (has no administration in time range) zdpsayg-lgzhxf-iuztsxfa (CREON) 47936 units capsule (12,000 Units Oral Given 10/20/22 [...] tobacco abuse, anxiety, HTN, sent from OSH [[place] [facility]] admitted with right orbital cellulitis Assessment Principal Problem: Orbital cellulitis on right Active Problems: Chronic bronchitis (HCC) Anxiety Tobacco abuse HTN (hypertension) Ophthalmology and ENT is consulted - following Plan MRI orbit w/wo is ordered. CT chest w/o. Empiric abx Vancomycin and Zosyn [she had rash with penicillins as kid, denied anaphylactic react (more content not included)...[facility] [id number] History of Present illness Narrative* Jeffery Jin [...] Seen with Dr. Guerin documented in this [id number] Telephone encounter Note* Telephone Encounter - Jeffy Garner MD - 10/20/2022 5:17 AM EST I was called by [facility] regarding a transfer from [place] [facility]. That facility is requesting transfer because [...] 13, ESR/CRP elevated. Discussed with provider at [place] [facility], advised they shoulddiscuss case with ophthalmology as patient may benefit from ED to ED transfer rather than direct admission to medicine for earlier ophthalmology evaluation. Patient is not accepted to medicine at this time, 5:18 AM 10/20/22. Jeffy Garner MD [id number] Miscellaneous Notes* Telephone Encounter - Jeffy Garner MD - 10/20/2022 5:17 AM EST I was called by [facility] regarding a transfer from [place] [facility]. That facility is requesting transfer because [...] 13, ESR/CRP elevated. Discussed with provider at [place] [facility], advised they shoulddiscuss case with ophthalmology as patient may benefit from ED to ED transfer rather than direct admission to medicine for earlier ophthalmology evaluation. Patient is not accepted to medicine at this time, 5:18 AM 10/20/22. Jeffy Garner MD documented in this [id number] Discharge summary Author Mo Velasco [facility] October 20, 2022 5:55am Note Date/Time October 19, 2022 7 :10pm [facility] Medical Records Department [address] [place] [address] Emergency Department Summary 10/19/22 MR#: [id number] Acct: [id number] Name: GRACIE BANUELOS Rep #:[id number] : 1965 57 From: Tasneem Dykes MD PCP: CARMEN STAHL Status:REG ER Location: ED ADDENDUM by Dr. Mo Velasco DO on 10/20/22 at 0555 Patient has been in the department waiting for bed availability at [facility]. She was a level 1 initially multiple callbacks they are unable to deliver a bed. I spoke with the patient she was okay with trying other hospitalsystems in the [facility]. Her visual acuity obtained 20/40 OD, 20/50 [...] Mo Gray> Cosigner Signature (if applicable): cc: MINI LAB OPERATOR-C SOILA EASTON ~* Signed HPI History of [...] she should go to the emergency room. [facility] Medical History Abdominal pain Alcohol abuse [...] Anxiety 04/19/19 [History Last Taken 06/10/21 21:00] tcxadn-hczwzyfx-bdubviu 24,000-76,000-120,000 unit capsule,delayed rel 3 ea PO [...] Allergy Hives Verified 10/19/22 18:59 hydrocodone [From [place]] AdvReac Itching Verified 10/19/22 18:59 Family History [...] % (Auto) 63.4 Lymph % (Auto) 23.6 [place] % (Auto) 7.1 Eos % (Auto) 4.4 [...] with Dr. Jurado, on-call Dr. Acosta, her data center technician. He advises that if the patient had [...] pressure. We spoke with both hospitals in [place] who are not excepting transfers at this time. Patient has been discussed with [facility] and patient has been accepted as [...] mg PO DAILY PRN PRN (Reason: Anxiety) ygjayj-mpuxkrcq-tkfpmtg 1 CAPSULE capsule 3 ea PO DAILY [...] Disposition Disposition: Acute Care Hospital Discharge Location: [facility] What to do if you have Problems For any increased pain, shortness of breath, bleeding, nausea or vomiting, chestpain, or any unexpected problems, contact your Primary Care Provider. Call [facility] ([phone]) or report to the closest Emergency Room. Call 911 if necessary. 10/19/222224 <Electronically signed by Tasneem Dykes MD> Cosigner Signature (if applicable): CC: CARMEN EASTON ~ Signed [facility] Work Phone: 1(678) 405-948311-30-2022 Instructions* Patient Instructions* Soila Easton APRN.CNP - 08/27/2022 1:16 PM EST Call [facility] and ask how to safely use your portable oxygen. Start trelegy daily as prescribed by pulmonology Use your oxygen at all times at 2L Use your albuterol inhaler as prescribed for shortness of breath. documented in this encounterMercy [facility]11-30-2022 History of Present illness Narrative* Soila Easton APRN.CNP - 08/27/2022 12:53 PM EST CC: Patient presents with: Recheck: [facility] ER follow up, SOB, fevers in evenings HPI Gracie Banuelos is a 57 year old female who presents today for ER follow-up. 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 Also does not wear her oxygen at home unless she is very short of breath. Has not been taking her trelegy, does not wear her oxygen at home. Sees [facility] andwas instructed by them to [...] airways disease (HCC) Alcohol dependence in remission ([facility]) 07/10/2015 Alcohol use disorder 08/27/2017 Alcohol-induced pancreatitis Alcoholic hepatitis 05/18/2012 Alcoholic liver disease ([facility]) 11/16/2013 Anemia Anxiety with depression Asthma Chronic hypoxemic respiratory failure ([facility]) COPD (chronic obstructive pulmonary disease) ([facility]) 05/25/2012 DDD (degenerative disc disease), [...] Stage 3 severe COPD by GOLD classification ([facility]) 2018 Tobacco use greater than [...] Take 1 tablet by mouth once daily. fxhotatlcha-sjfawdero-xlqfkuyb (TRELEGY ELLIPTA) 100-62.5-25 mcg inhalation powder DAILY ewriyo-mekcxjii-aqfdiaw (CREON 24) 24,000-76,000 -120,000 unit delayed release [...] DTAP,TDAP,TD Discontinued DATA REVIEWED: Outside chart from [facility] reviewed. ASSESSMENT/PLAN: 1. Chronic obstructive pulmonary [...] plan. Soila Easton APRN.CNP documented in this encounterMercy Health [facility] Hospital10-21-2022 History of Present illness Narrative* Soila [...] Gracie denies regular aerobic exercise. She watches [employer] for sodium, low fat and low cholesterol [...] by mouth three times daily as needed. ylwibknhklt-vkqxbgcml-btqhvczg (TRELEGY ELLIPTA) 100-62.5-25 mcg inhalation powder DAILY melatonin 10 mg TbER zlatii-lahvjlic-ltvctmo (CREON 24) 24,000-76,000 -120,000 unit delayed release [...] plan. Soila Easton APRN.CNP documented in this encounterMercy Health [facility] Hospital09-28-2022 Miscellaneous Notes* Telephone Encounter - Evelyn Montgomery RN - 06/25/2022 11:21 AM EDT Patient recently on antibiotic for respiratory infection. C/o vaginal itching/irritation again now.Asking for refill of diflucan for yeast infection. Please file if okay. No need to call patient back if filed. Evelyn Montgomery RN documented in this encounterMercy Health [facility] Hospital09-16-2022 Miscellaneous Notes* Telephone Encounter - Janene [...] you. Janene Grimm RN documented in this encounterMercy Health Perrysburg Hospital08-30-2022 History of Present illness Narrative* Claudia [...] by mouth three times daily as needed. tuerkclppiy-jlfccsmmn-xiqevxnd (TRELEGY ELLIPTA) 100-62.5-25 mcg inhalation powder DAILY [...] Take 1 tablet by mouth once daily. vtphdw-qckfjvml-xjigrwd (CREON 24) 24,000-76,000 -120,000 unit delayed release [...] with depression Asthma Chronic hypoxemic respiratory failure ([facility]) COPD (chronic obstructive pulmonary disease) ([facility]) 05/25/2012 DDD (degenerative disc disease), [...] Stage 3 severe COPD by GOLD classification ([facility]) 2018 Tobacco use greater than [...] 05/27/22 TIME: 9:23 AM documented in this encounterMercy Health [facility] Hospital08-25-2022 Miscellaneous Notes* Telephone Encounter - Janene [...] you. Janene Grimm RN documented in this encounterMercy Health [facility]sburg Hospital08-05-2022 History of Present illness Narrative* Gracie Jean RT(R) - 05/02/2022 9:15 AM EDT Radiology [...] 02, 2022 9:43 AM documented in this encounterMercy Health Perrysburg Hospital07-22-2022 Miscellaneous Notes* Telephone Encounter - Eda [...] you. Eda Moore LPN documented in this encounterMercy Health Perrysburg Hospital07-21-2022 Miscellaneous Notes* Telephone Encounter - Marge Perkins RN - 04/17/2022 11:28 AM EDT [facility] called and notified of providers message and instructions. She voices understanding. Marge Perkins RN * Telephone Encounter - Soila Easton APRN.CNP - 04/17/2022 11:15 AM EDT Please call [facility] and let them know Ibuprofen is discontinued. Was discussed later in appointment after prescription was sent. Only fill meloxicam at this time. Patient aware she should not take ibuprofen while on meloxicam as it was discussed in appointment. Thank you Soila Easton APRN.CNP * Telephone Encounter - Suellen Leonard LPN - 04/17/2022 11:03 AM EDT Pharmacist Colleen from [facility] calling with med question. She received an Rx today for meloxicam & ibuprofen, pharmacist states these meds should not be taken at the same time & is asking if the directions should specify how far apart to take them? Please advise. Suellen Leonard LPN documented in this encounterMer[facility] History of Present illness Narrative* Soila Easton, TRANSMISSIONS SYSTEMS OPERATOR.LEGAL EXECUTIVE ASSISTANT - 04/17/2022 8:59 AM EDT CC: Patient [...] but did have a few beers on day weekend. Denies any other drugusage. No suicidal ideations or hallucinations. COPD/Emphysema: Uses albuterol inhaler with walking. Uses O2 at night time and walking at 2L. Had pneumonia 2 months ago. 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 ajmaog-xllilprc-exkmuli (CREON 24) 24,000-76,000 -120,000 unit delayed release [...] ICD9: 577.1, ICD10: K86.0 As above - [id number] 24,000-76,000-120,000 UNIT CAPSULE,DELAYED REL - CONSULT TO [...] plan. Soila Easton APRN.CNP documented in this encounterMer[facility]06-27-2022 Miscellaneous Notes* Telephone Encounter - Maribeth [...] you. Maribeth Owen LPN documented in this encounterMer[facility]06-24-2022 Miscellaneous Notes* Telephone Encounter - Janene Grimm RN - 03/21/2022 4:49 PM EDT Patient has been identified by name and date of : Yes Pharmacy phones for refill(s): Pending Prescriptions Disp Refills CHOLECALCIFEROL (VITAMIN D3) 50 MCG (2,000 UNIT) CAPSULE 28 capsule 11 Sig: Take 1 capsule by mouth once daily. THUY: No [id number] 24,000-76,000-120,000 UNIT CAPSULE,DELAYED REL 180 capsule 11 [...] you. Janene Grimm RN documented in this encounterMercy [facility]06-14-2022 Miscellaneous Notes* Telephone Encounter - Inge Holden APRN.LEGAL EXECUTIVE ASSISTANT - 03/11/2022 3:35 PM EDT Order filed for Diflucan. Inge Holden APRN.IGOR * Telephone Encounter - Tasneem Ocampo RN - 03/11/2022 3:26 PM EDT Patient has been taking antibiotic for upper respiratory infection/pnemonia for the last 7 days. Having vaginal itching. Denies discharge or odor. Requesting RX for Diflucan to be sent to [facility]. RX pending. Has not tried OTC Monistat. No need to call patient unless RX can't be sent. Tasneem Ocampo RN documented in this encounterMercy [facility]05-27-2022 Miscellaneous Notes* Telephone Encounter - Eda [...] you. Eda Moore LPN documented in this encounterMercy [facility]04-06-2022 Miscellaneous Notes* Telephone Encounter - Zelda Jensen - 01/01/2022 12:50 PM EDT Called and scheduled patient for 01-10-22 with Soila Cartagena Pss * Telephone Encounter - Soila Easton APRN.LEGAL EXECUTIVE ASSISTANT - 12/27/2021 12:54 PM EDT Patient needs routine follow up. Thank you Soila Easton APRN.LEGAL EXECUTIVE ASSISTANT documented in this encounterMercy Health [facility]04-15-2021 History of Past illness Narrative* Problem Noted Date Resolved Date History of colonic polyps 01/10/20212020 Abdominal bloating 01/10/2021 01/10/2021 Alcohol dependence in remission 07/10/2015 11/02/2018 Pancreatitis chronic 05/26/2011 08/27/2017 Acute gastritis without mention of hemorrhage 01/03/2015 Gastroesophageal reflux disease 12/26/2009 01/10/2021 documented as of this encounter (statuses as of 01/01/2022) [facility] of Past illness Narrative* Problem Noted Date Resolved Date History of colonic polyps 01/10/20212020 Abdominal bloating 01/10/2021 01/10/2021 Alcohol dependence in remission 07/10/2015 11/02/2018 Pancreatitis chronic 05/26/2011 08/27/2017 Acute gastritis without mention of hemorrhage 01/03/2015 Gastroesophageal reflux disease 12/26/2009 01/10/2021 documented as of this encounter (statuses as of 02/14/2022) [facility] of Past illness Narrative* Problem Noted Date Resolved Date History of colonic polyps 01/10/20212020 Abdominal bloating 01/10/2021 01/10/2021 Alcohol dependence in remission 07/10/2015 11/02/2018 Pancreatitis chronic 05/26/2011 08/27/2017 Acute gastritis without mention of hemorrhage 01/03/2015 Gastroesophageal reflux disease 12/26/2009 01/10/2021 documented as of this encounter (statuses as of 02/21/2022) [facility] of Past illness Narrative* Problem Noted Date Resolved Date History of colonic polyps 01/10/20212020 Abdominal bloating 01/10/2021 01/10/2021 Alcohol dependence in remission 07/10/2015 11/02/2018 Pancreatitis chronic 05/26/2011 08/27/2017 Acute gastritis without mention of hemorrhage 01/03/2015 Gastroesophageal reflux disease 12/26/2009 01/10/2021 documented as of this encounter (statuses as of 03/11/2022) [facility] of [facility] illness Narrative* Problem Noted Date Resolved Date History of colonic polyps 01/10/20212020 Abdominal bloating 01/10/2021 01/10/2021 Alcohol dependence in remission 07/10/2015 11/02/2018 Pancreatitis chronic 05/26/2011 08/27/2017 Acute gastritis without mention of hemorrhage 01/03/2015 Gastroesophageal reflux disease 12/26/2009 01/10/2021 documented as of this encounter (statuses as of 03/24/2022) [facility] of [facility] illness Narrative* Problem Noted Date Resolved Date History of colonic polyps 01/10/20212020 Abdominal bloating 01/10/2021 01/10/2021 Alcohol dependence in remission 07/10/2015 11/02/2018 Pancreatitis chronic 05/26/2011 08/27/2017 Acute gastritis without mention of hemorrhage 01/03/2015 Gastroesophageal reflux disease 12/26/2009 01/10/2021 documented as of this encounter (statuses as of 03/24/2022) [address]15-[address]21 History of Past illness Narrative* Problem Noted Date Resolved Date History of colonic polyps 01/10/20212020 Abdominal bloating 01/10/2021 01/10/2021 Alcohol dependence in remission 07/10/2015 11/02/2018 Pancreatitis chronic 05/26/2011 08/27/2017 Acute gastritis without mention of hemorrhage 01/03/2015 Gastroesophageal reflux disease 12/26/2009 01/10/2021 documented as of this encounter (statuses as of 04/17/2022) [facility] of [facility] illness Narrative* Problem Noted Date Resolved Date History of colonic polyps 01/10/20212020 Abdominal bloating 01/10/2021 01/10/2021 Alcohol dependence in remission 07/10/2015 11/02/2018 Pancreatitis chronic 05/26/2011 08/27/2017 Acute gastritis without mention of hemorrhage 01/03/2015 Gastroesophageal reflux disease 12/26/2009 01/10/2021 documented as of this encounter (statuses as of 04/17/2022) [facility] of [facility] illness Narrative* Problem Noted Date Resolved Date History of colonic polyps 01/10/20212020 Abdominal bloating 01/10/2021 01/10/2021 Alcohol dependence in remission 07/10/2015 11/02/2018 Pancreatitis chronic 05/26/2011 08/27/2017 Acute gastritis without mention of hemorrhage 01/03/2015 Gastroesophageal reflux disease 12/26/2009 01/10/2021 documented as of this encounter (statuses as of 04/18/2022) [facility] of [facility] illness Narrative* Problem Noted Date Resolved Date History of colonic polyps 01/10/20212020 Abdominal bloating 01/10/2021 01/10/2021 Alcohol dependence in remission 07/10/2015 11/02/2018 Pancreatitis chronic 05/26/2011 08/27/2017 Acute gastritis without mention of hemorrhage 01/03/2015 Gastroesophageal reflux disease 12/26/2009 01/10/2021 documented as of this encounter (statuses as of 04/18/2022) [address]15-2021 History of Past illness Narrative* Problem Noted Date Resolved Date History of colonic polyps 01/10/20212020 Abdominal bloating 01/10/2021 01/10/2021 Alcohol dependence in remission 07/10/2015 11/02/2018 Pancreatitis chronic 05/26/2011 08/27/2017 Acute gastritis without mention of hemorrhage 01/03/2015 Gastroesophageal reflux disease 12/26/2009 01/10/2021 documented as of this encounter (statuses as of 05/03/2022) [facility] Narrative* Problem Noted Date Resolved Date History of colonic polyps 01/10/20212020 Abdominal bloating 01/10/2021 01/10/2021 Alcohol dependence in remission 07/10/2015 11/02/2018 Pancreatitis chronic 05/26/2011 08/27/2017 Acute gastritis without mention of hemorrhage 01/03/2015 Gastroesophageal reflux disease 12/26/2009 01/10/2021 documented as of this encounter (statuses as of 05/16/2022) [facility] Narrative* Problem Noted Date Resolved Date History of colonic polyps 01/10/20212020 Abdominal bloating 01/10/2021 01/10/2021 Alcohol dependence in remission 07/10/2015 11/02/2018 Pancreatitis chronic 05/26/2011 08/27/2017 Acute gastritis without mention of hemorrhage 01/03/2015 Gastroesophageal reflux disease 12/26/2009 01/10/2021 documented as of this encounter (statuses as of 05/22/2022) [facility] of [facility] illness Narrative* Problem Noted Date Resolved Date History of colonic polyps 01/10/20212020 Abdominal bloating 01/10/2021 01/10/2021 Alcohol dependence in remission 07/10/2015 11/02/2018 Pancreatitis chronic 05/26/2011 08/27/2017 Acute gastritis without mention of hemorrhage 01/03/2015 Gastroesophageal reflux disease 12/26/2009 01/10/2021 documented as of this encounter (statuses as of 05/27/2022) [facility] Narrative* Problem Noted Date Resolved Date History of colonic polyps 01/10/20212020 Abdominal bloating 01/10/2021 01/10/2021 Alcohol dependence in remission 07/10/2015 11/02/2018 Pancreatitis chronic 05/26/2011 08/27/2017 Acute gastritis without mention of hemorrhage 01/03/2015 Gastroesophageal reflux disease 12/26/2009 01/10/2021 documented as of this encounter (statuses as of 06/13/2022) [place] [address]15-[address]21 History of Past illness Narrative* Problem Noted Date Resolved Date History of colonic polyps 01/10/20212020 Abdominal bloating 01/10/2021 01/10/2021 Alcohol dependence in remission 07/10/2015 11/02/2018 Pancreatitis chronic 05/26/2011 08/27/2017 Acute gastritis without mention of hemorrhage 01/03/2015 Gastroesophageal reflux disease 12/26/2009 01/10/2021 documented as of this encounter (statuses as of 06/25/2022) [address]15-2021 History of Past illness Narrative* Problem Noted Date Resolved Date History of colonic polyps 01/10/20212020 Abdominal bloating 01/10/2021 01/10/2021 Alcohol dependence in remission 07/10/2015 11/02/2018 Pancreatitis chronic 05/26/2011 08/27/2017 Acute gastritis without mention of hemorrhage 01/03/2015 Gastroesophageal reflux disease 12/26/2009 01/10/2021 documented as of this encounter (statuses as of 06/30/2022) [address]15-2021 History of Past illness Narrative* Problem Noted Date Resolved Date History of colonic polyps 01/10/20212020 Abdominal bloating 01/10/2021 01/10/2021 Alcohol dependence in remission 07/10/2015 11/02/2018 Pancreatitis chronic 05/26/2011 08/27/2017 Acute gastritis without mention of hemorrhage 01/03/2015 Gastroesophageal reflux disease 12/26/2009 01/10/2021 documented as of this encounter (statuses as of 07/18/2022) [address]15-2021 History of Past illness Narrative* Problem Noted Date Resolved Date History of colonic polyps 01/10/20212020 Abdominal bloating 01/10/2021 01/10/2021 Alcohol dependence in remission 07/10/2015 11/02/2018 Pancreatitis chronic 05/26/2011 08/27/2017 Acute gastritis without mention of hemorrhage 01/03/2015 Gastroesophageal reflux disease 12/26/2009 01/10/2021 documented as of this encounter (statuses as of 08/27/2022) [address]15-2021 History of Past illness Narrative* Problem Noted Date Resolved Date History of colonic polyps 01/10/20212020 Abdominal bloating 01/10/2021 01/10/2021 Alcohol dependence in remission 07/10/2015 11/02/2018 Pancreatitis chronic 05/26/2011 08/27/2017 Acute gastritis without mention of hemorrhage 01/03/2015 Gastroesophageal reflux disease 12/26/2009 01/10/2021 documented as of this encounter (statuses as of 11/12/2022) [facility] illness Narrative* Problem Noted Date Resolved Date History of colonic polyps 01/10/20212020 Abdominal bloating 01/10/2021 01/10/2021 Alcohol dependence in remission 07/10/2015 11/02/2018 Pancreatitis chronic 05/26/2011 08/27/2017 Acute gastritis without mention of hemorrhage 01/03/2015 Gastroesophageal reflux disease 12/26/2009 01/10/2021 documented as of this encounter (statuses as of 11/12/2022) [address]15-2021 History of Past illness Narrative* Problem Noted Date Resolved Date History of colonic polyps 01/10/20212020 Abdominal bloating 01/10/2021 01/10/2021 Alcohol dependence in remission 07/10/2015 11/02/2018 Pancreatitis chronic 05/26/2011 08/27/2017 Acute gastritis without mention of hemorrhage 01/03/2015 Gastroesophageal reflux disease 12/26/2009 01/10/2021 documented as of this encounter (statuses as of 11/25/2022) [address]15-2021 History of Past illness Narrative* Problem Noted Date Resolved Date History of colonic polyps 01/10/20212020 Abdominal bloating 01/10/2021 01/10/2021 Alcohol dependence in remission 07/10/2015 11/02/2018 Pancreatitis chronic 05/26/2011 08/27/2017 Acute gastritis without mention of hemorrhage 01/03/2015 Gastroesophageal reflux disease 12/26/2009 01/10/2021 documented as of this encounter (statuses as of 11/26/2022) [address]15-2021 History of Past illness Narrative* Problem Noted Date Resolved Date History of colonic polyps 01/10/20212020 Abdominal bloating 01/10/2021 01/10/2021 Alcohol dependence in remission 07/10/2015 11/02/2018 Pancreatitis chronic 05/26/2011 08/27/2017 Acute gastritis without mention of hemorrhage 01/03/2015 Gastroesophageal reflux disease 12/26/2009 01/10/2021 documented as of this encounter (statuses as of 11/27/2022) [facility] Narrative* Problem Noted Date Resolved Date History of colonic polyps 01/10/20212020 Abdominal bloating 01/10/2021 01/10/2021 Alcohol dependence in remission 07/10/2015 11/02/2018 Pancreatitis chronic 05/26/2011 08/27/2017 Acute gastritis without mention of hemorrhage 01/03/2015 Gastroesophageal reflux disease 12/26/2009 01/10/2021 documented as of this encounter (statuses as of 11/27/2022) [facility] Narrative* Problem Noted Date Resolved Date History of colonic polyps 01/10/20212020 Abdominal bloating 01/10/2021 01/10/2021 Alcohol dependence in remission 07/10/2015 11/02/2018 Pancreatitis chronic 05/26/2011 08/27/2017 Acute gastritis without mention of hemorrhage 01/03/2015 Gastroesophageal reflux disease 12/26/2009 01/10/2021 documented as of this encounter (statuses as of 11/27/2022) [address]15-2021 History of Past illness Narrative* Problem Noted Date Resolved Date History of colonic polyps 01/10/20212020 Abdominal bloating 01/10/2021 01/10/2021 Alcohol dependence in remission 07/10/2015 11/02/2018 Pancreatitis chronic 05/26/2011 08/27/2017 Acute gastritis without mention of hemorrhage 01/03/2015 Gastroesophageal reflux disease 12/26/2009 01/10/2021 documented as of this encounter (statuses as of 11/28/2022) [address]15-2021 History of Past illness Narrative* Problem Noted Date Resolved Date History of colonic polyps 01/10/20212020 Abdominal bloating 01/10/2021 01/10/2021 Severe protein-calorie malnutrition 01/07/2019 12/26/2022 Alcohol dependence in remission 07/10/2015 11/02/2018 Pancreatitis chronic 05/26/2011 08/27/2017 Acute gastritis without mention of hemorrhage 01/03/2015 Gastroesophageal reflux disease 12/26/2009 01/10/2021 documented as of this encounter (statuses as of 12/31/2022) [facility] Narrative* Problem Noted Date Resolved Date History of colonic polyps 01/10/20212020 Abdominal bloating 01/10/2021 01/10/2021 Severe protein-calorie malnutrition 01/07/2019 12/26/2022 Alcohol dependence in remission 07/10/2015 11/02/2018 Pancreatitis chronic 05/26/2011 08/27/2017 Acute gastritis without mention of hemorrhage 01/03/2015 Gastroesophageal reflux disease 12/26/2009 01/10/2021 documented as of this encounter (statuses as of 03/13/2023) [facility] Narrative* Problem Noted Date Resolved Date History of colonic polyps 01/10/20212020 Abdominal bloating 01/10/2021 01/10/2021 Severe protein-calorie malnutrition 01/07/2019 12/26/2022 Alcohol dependence in remission 07/10/2015 11/02/2018 Pancreatitis chronic 05/26/2011 08/27/2017 Acute gastritis without mention of hemorrhage 01/03/2015 Gastroesophageal reflux disease 12/26/2009 01/10/2021 documented as of this encounter (statuses as of 03/24/2023) [facility] Narrative* Problem Noted Date Diagnosed Date Resolved Date History of colonic polyps 01/10/2021 Abdominal bloating 01/10/2021 Severe protein-calorie malnutrition 01/07/2019 12/26/2022 Alcohol dependence in remission 07/10/2015 11/02/2018 Pancreatitis chronic 05/26/2011 017 Acute gastritis without mention of hemorrhage 10/03/19 11 01/03/2015 Gastroesophageal reflux disease 12/26/2009 01/10/2021 documented as of this encounter (statuses as of 04/15/2023) [address]15-[address]21 History of Past illness Narrative* Problem Noted Date Diagnosed Date Resolved Date History of colonic polyps 01/10/2021 Abdominal bloating 01/10/2021 Severe protein-calorie malnutrition 01/07/2019 12/26/2022 Alcohol dependence in remission 07/10/2015 11/02/2018 Pancreatitis chronic 05/26/2011 017 Acute gastritis without mention of hemorrhage 10/03/19 11 01/03/2015 Gastroesophageal reflux disease 12/26/2009 01/10/2021 documented as of this encounter (statuses as of 05/19/2023) [address]15-2021 History of Past illness Narrative* Problem Noted Date Diagnosed Date Resolved Date History of colonic polyps 01/10/2021 Abdominal bloating 01/10/2021 Severe protein-calorie malnutrition 01/07/2019 12/26/2022 Alcohol dependence in remission 07/10/2015 11/02/2018 Pancreatitis chronic 05/26/2011 017 Acute gastritis without mention of hemorrhage 10/03/19 11 01/03/2015 Gastroesophageal reflux disease 12/26/2009 01/10/2021 documented as of this encounter (statuses as of 06/08/2023) [facility]arrative* Problem Noted Date Diagnosed Date Resolved Date History of colonic polyps 01/10/2021 Abdominal bloating 01/10/2021 Severe protein-calorie malnutrition 01/07/2019 12/26/2022 Alcohol dependence in remission 07/10/2015 11/02/2018 Pancreatitis chronic 05/26/2011 017 Acute gastritis without mention of hemorrhage 10/03/19 11 01/03/2015 Gastroesophageal reflux disease 12/26/2009 01/10/2021 documented as of this encounter (statuses as of 06/10/2023) [address]15-2021 History of Past illness Narrative* Problem Noted Date Diagnosed Date Resolved Date History of colonic polyps 01/10/2021 Abdominal bloating 01/10/2021 Severe protein-calorie malnutrition 01/07/2019 12/26/2022 Alcohol dependence in remission 07/10/2015 11/02/2018 Pancreatitis chronic 05/26/2011 017 Acute gastritis without mention of hemorrhage 10/03/19 11 01/03/2015 Gastroesophageal reflux disease 12/26/2009 01/10/2021 documented as of this encounter (statuses as of 06/12/2023) [facility]arrative* Problem Noted Date Diagnosed Date Resolved Date History of colonic polyps 01/10/2021 Abdominal bloating 01/10/2021 Severe protein-calorie malnutrition 01/07/2019 12/26/2022 Alcohol dependence in remission 07/10/2015 11/02/2018 Pancreatitis chronic 05/26/2011 017 Acute gastritis without mention of hemorrhage 10/03/19 11 01/03/2015 Gastroesophageal reflux disease 12/26/2009 01/10/2021 documented as of this encounter (statuses as of 07/10/2023) [facility] Narrative* Problem Noted Date Diagnosed Date Resolved Date History of colonic polyps 01/10/2021 Abdominal bloating 01/10/2021 Severe protein-calorie malnutrition 01/07/2019 12/26/2022 Alcohol dependence in remission 07/10/2015 11/02/2018 Pancreatitis chronic 05/26/2011 017 Acute gastritis without mention of hemorrhage 10/03/19 11 01/03/2015 Gastroesophageal reflux disease 12/26/2009 01/10/2021 documented as of this encounter (statuses as of 11/04/2023) [facility] Narrative* Problem Noted Date Diagnosed Date Resolved Date History of colonic polyps 01/10/2021 Abdominal bloating 01/10/2021 Severe protein-calorie malnutrition 01/07/2019 12/26/2022 Alcohol dependence in remission 07/10/2015 11/02/2018 Pancreatitis chronic 05/26/2011 017 Acute gastritis without mention of hemorrhage 10/03/1901/03/2015 Gastroesophageal reflux disease 12/26/2009 01/10/2021 documented as of this encounter (statuses as of 12/17/2023) [address]15-2021 History of Past illness Narrative* Problem Noted Date Diagnosed Date Resolved Date History of colonic polyps 01/10/2021 Abdominal bloating 01/10/2021 Severe protein-calorie malnutrition 01/07/2019 12/26/2022 Alcohol dependence in remission 07/10/2015 11/02/2018 Pancreatitis chronic 05/26/2011 017 Acute gastritis without mention of hemorrhage 10/03/1901/03/2015 Gastroesophageal reflux disease 12/26/2009 01/10/2021 documented as of this encounter (statuses as of 01/07/2024) [address]15-2021 History of Past illness Narrative* Problem Noted Date Diagnosed Date Resolved Date History of colonic polyps 01/10/2021 Abdominal bloating 01/10/2021 Severe protein-calorie malnutrition 01/07/2019 12/26/2022 Alcohol dependence in remission 07/10/2015 11/02/2018 Pancreatitis chronic 05/26/2011 017 Acute gastritis without mention of hemorrhage 10/03/1901/03/2015 Gastroesophageal reflux disease 12/26/2009 01/10/2021 documented as of this encounter (statuses as of 01/07/2024) [address]15-2021 History of Past illness Narrative* Problem Noted Date Diagnosed Date Resolved Date History of colonic polyps 01/10/2021 Abdominal bloating 01/10/2021 Severe protein-calorie malnutrition 01/07/2019 12/26/2022 Alcohol dependence in remission 07/10/2015 11/02/2018 Pancreatitis chronic 05/26/2011 017 Acute gastritis without mention of hemorrhage 10/03/19 11 01/03/2015 Gastroesophageal reflux disease 12/26/2009 01/10/2021 documented as of this encounter (statuses as of 01/13/2024) [address]15-2021 History of Past illness Narrative* Problem Noted Date Diagnosed Date Resolved Date History of colonic polyps 01/10/2021 Abdominal bloating 01/10/2021 Severe protein-calorie malnutrition 01/07/2019 12/26/2022 Alcohol dependence in remission 07/10/2015 11/02/2018 Pancreatitis chronic 05/26/2011 017 Acute gastritis without mention of hemorrhage 10/03/19 11 01/03/2015 Gastroesophageal reflux disease 12/26/2009 01/10/2021 documented as of this encounter (statuses as of 01/13/2024) [facility] Author Jeferson Breaux [facility] Note Date/Time December 12, 2024 6:2 5pm [facility] Medical Records Department [address] [place] [address] Anesthesia Postop Eval II 12/12/24 1751 MR#: [id number] Acct: [id number] Name: GRACIE BANUELOS Rep #:[id number] : 1965 59 From: Jeferson Breaux MD PCP: Dr. Misbah Elkins MD Status:ADM I N Y Race: C Location: [place] [address] 3-1 Anesthesia Postop Eval I Sum Postop Eval Completion status Anesthesia document: Postop Eval 1 completed: Yes Anesthesia Postop Eval I Summary Anesthesia Postop Eval I Summary: Anesthesia Postop Eval I: Assessment Summary Airway patent Yes 12/12/24 13:08 OBSERVATORY [email or web address] Spontaneous unlabored Yes 12/12/24 13:08 OBSERVATORY [email or web address] respirations Mental status Awake,Calm 12/12/24 13:08 OBSERVATORY [email or web address] nausea No 12/12/24 13:08 OBSERVATORY [email or web address] Vomiting No 12/12/24 13:08 OBSERVATORY DIRECTOR.PKEL Anesthesia Postop Eval I: Fluid Summary Crystalloid volume administer 30 12/12/24 13:08 OBSERVATORY DIRECTOR.PKEL (ml) Colloids volume administered ( ml) Blood Product volume administered (ml) Total IV fluid infused 30 12/12/24 13:08 OBSERVATORY DIRECTOR.PKEL Anesthesia Postop Eval I: Summary Notes Anesthesia Complication No 12/12/24 13:08 OBSERVATORY DIRECTOR.PKEL Anesthesia Complication Comment: Post-operative progress note Anesthesia: Postop Eval II Evaluation Mental status: Awake and Calm Pain Level: 1 nausea: No Vomiting: No Complications Anesthesia Complication: No 12/12/24 1751 <Electronically signed by Jeferson carranza MD> Date _ Jeferson Wardignronna Signature: Date CC: ~ Signed [facility] Work Phone: Consult note Author Uri Reyna [facility] Note Date/Time July 06, 2025 12 :10pm [facility] Medical Records Department [address] [place] [id number] Anesthesia Postop Eval I 07/06/25 1159 MR#: [id number] Acct: [id number] Name: GRACIE BANUELOS Rep #:[id number] : 1965 60 From: Uri Reyna PCP: Dr. Misbah Elkins MD Status:REG S DC Y Race: C Location: [place] [address] ADDENDUM by BRAYDEN Reyna on 07/06/25 at 1210 Addendum 5L/min O2 via NC, not room air 07/06/25 1210 <Electronically signed by Uri Reyna > Date _ Uri Reyna cc: ~* Signed Anesthesia: Postop Eval I Current Vital Signs Temperature: 97 F Pulse Rate: 88 Blood Pressure: 142/74 Respiratory Rate: 16 Pulse Ox: 98 Oxygen Delivery Method: Room Air Assessment Airway patent: Yes Spontaneous unlabored respirations: Yes Mental status: Asleep nausea: No Vomiting: No Anesthesia Complication: No Fluid Hydration Crystalloid volume administer (ml): 900 Total IV fluid infused: 900 Progress Note Anesthesia document: Postop Eval 1 completed: Yes 07/06/25 1200 <Electronically signed by Uri Reyna > Date _ Uri Reyna Edignronna Signature: Date CC: ~ Signed [facility] Work Phone: Discharge summary Author Dr. Bonilla [facility] November 07, 2022 12:09pm Note Date/Time November 07, 2022 12:09pm [facility] Medical Records Department [facility] [place] [address] Instructions for Home/Discharge Instructions 11/07/22 1208 MR#: [id number] Acct: [id number] Name: GRACIE BANUELOS Rep #:[id number] : 1965 57 From: Anastacia Bonilla MD [...] Dieter Harrison ; Ani Eduardo NP ; oCurtney Iverson Instructions Patient Instructions: Acute Kidney Failure [...] PO BID Referrals / Follow Up: SOILA EASTON, MARY-C [Primary Care Provider] - Within 2 Weeks Disposition Disposition (needs filled in before D/C Order can be placed): Home, Self Care 11/07/221208<Electronically signed by Anastacia Bonilla MD>Anastacia Bonilla MD CC: MINI LAB OPERATOR-C Ani Eduardo; MINI LAB OPERATOR-C SOILA EASTON; Dr. Ciarra Ross MD; Dr. Freddie Perdue MD; Dr. Gonzalo Sebastian DO; Dr. Courtney Iverson MD; Dr. Olivier Coffman MD; Dr. Lisa Ochoa MD; Dr. Dieter Harrison MD ~ Signed [facility] Work Phone: Discharge summary Author Dr. Bonilla [facility] November 07, 2022 1:26pm Note Date/Time November 07, 2022 12:20pm [facility] Medical Records Department [place] [address] Discharge Summary 11/07/221208 MR#: [id number] Acct: [id number] Name: GRACIE BANUELOS Rep #:[id number] : 1965 57 From: Anastacia Bonilla MD PCP: CARMEN STAHL Status:ADM IN Location: [facility] NAY135- 1 Providers Date of Admission: 11/01/22 Date of Discharge: 11/07/22 Primary Care Physician: CARMEN STAHL Consultations 11/02/22 20:18 Consult: Health Services Coordinator / Pulmonary Medicine Routine Consulting Provider: [facility] Reason for Consult: respiratory failure. COPD EMERGENT [...] 0.5 inch RIGHT EYE Q6H antibiotic 11/01/22 auamel-ofmnovjf-smlyrdt 24,000-76,000-120,000 unit capsule,delayed rel (Creon) 1cap PO [...] note, patient had recently been discharged from [facility] after she was transferred there from [facility] for acute ophthalmology evaluation due to right [...] Neut % (Auto) 59.2, Lymph % (Auto)19.9, [place] % (Auto) 13.8 H, Eos % (Auto) 4.1, Baso % (Auto) 0.4, Absolute Neuts (auto) 8.0 H, Absolute Lymphs (auto) 2.70, Nucleated RBC % 0, Differential Comment SCANNED, Diff Path Review January11/07/22 05:40: Sodium 141, Potassium 3.0 L, Chloride 99, Carbon Dioxide 36.0 H,Anion Gap 6, BUN 15, Creatinine 0.96, Estim Creat Clear Calc 52.20, Est GFR (MDRD) Af Amer 76, Est GFR (MDRD) Non-Af 63, BUN/Creatinine Ratio 15.6, Glucose 90, Calcium 8.4 L Microbiology: Microbiology 11/04/22 12:31 Blood Culture (Wb) - Right Hand Blood Culture - Preliminary 02/07/23 12:08 Blood Culture (Wb) - Left Hand [...] Up: Misbah Elkins MD [Med Staff - Salvage Worker] - 11/11/22 4:00 pm Disposition Disposition (needs filled in before D/C Order can be placed): Home, Self Care Charges/Coding Visit Charges Inpatient E&M: 38458 Disch Hosp >30min 11/07/22 1326 <Electronically signed by Anastacia Bonilla MD> Cosigner Signature (if applicable): CC: MINI LAB OPERATORMiriam EASTON; Dr. Anastacia Bonilla MD~ Signed [facility] Work Phone: Evaluation note* Diagnosis Essential hypertension, benign documented in this encounter [facility] note* Diagnosis MICKEY (generalized anxiety disorder) Generalized anxiety disorder Hyperlipidemia, unspecified hyperlipidemia type documented in this encounter [facility] note* Diagnosis Onset Date Resolution Status Chronic respiratory failure with hypoxia chronic Smoking greater than 30 pack years chronic Stage 3 severe COPD by GOLD classification chronic [facility] Work Phone: Evaluation note* Diagnosis Vitamin D deficiency Unspecified vitamin D deficiency Alcohol-induced chronic pancreatitis (HCC) Chronic pancreatitis [facility] Diagnosis Hyperlipidemia, unspecified hyperlipidemia type MICKEY (generalized anxiety disorder) Generalized anxiety disorder documented in this encounter [facility] note* Diagnosis Essential hypertension, benign- Primary Hyperlipidemia, unspecified hyperlipidemia type Chronic fatigue Other malaise and fatigue Alcoholic hepatitis without ascites Acute alcoholic hepatitis Alcohol-induced chronic pancreatitis (HCC) Chronic pancreatitis Iron deficiency Iron deficiency anemia, unspecified Vitamin D deficiency Unspecified vitamin D deficiency MICKEY (generalized anxiety disorder) Generalized anxiety disorder Reactive depression Dysthymic disorder [facility] Diagnosis Vitamin D deficiency Unspecified vitamin D deficiency [facility] Diagnosis Alcohol-induced chronic pancreatitis (HCC) Chronic pancreatitis Alcoholic hepatitis without ascites Acute alcoholic hepatitis documented in this encounter [facility] note* Diagnosis Alcohol-induced chronic pancreatitis (HCC) Chronic pancreatitis Alcoholic hepatitis without ascites Acute alcoholic hepatitis [facility] assessment [facility] Work Phone: Evaluation note* Diagnosis Encounter for screening mammogram for breast cancer [facility]* Diagnosis Essential hypertension, benign- Primary Multiple joint pain Pain in joint, multiple sites Alcohol-induced chronic pancreatitis (HCC) Chronic pancreatitis Chronic obstructive pulmonary disease, unspecified COPD type (HCC) Right otitis media, unspecified otitis media type Need for influenza vaccination Need for prophylactic vaccination and inoculation against influenza [facility]* Diagnosis Chronic obstructive pulmonary disease, unspecified COPD type (HCC)- Primary [facility]* Diagnosis Onset Date Resolution Status Chronic respiratory failure with hypoxia chronic Stage 3 severe COPD by GOLD classification [facility] Work Phone: Evaluation note* Diagnosis Inflammation of orbital region- Primary Unspecified chronic inflammation of orbit [facility] Diagnosis Orbital inflammation- Primary Unspecified chronic [...] rash on her back, neck, and extremities [facility] Diagnosis Inflammation of orbital region- Primary Unspecified chronic inflammation of orbit [facility] Diagnosis Onset Date Resolution Status Chronic respiratory failure with hypoxia chronic Stage 3 severe COPD by GOLD classification chronic Acute hyponatremia acute Acute kidney injury acute Diarrhea acute Nausea & vomiting acute Stage 3 severe COPD by GOLD classification [facility] Work Phone: Evaluation note* Diagnosis CHUY (acute kidney injury) (HCC)- Primary Acute kidney failure, unspecified Chronic obstructive pulmonary disease, unspecified COPD type (HCC) Alcohol use disorder, moderate, dependence (HCC) Essential hypertension, benign Hyperlipidemia, unspecified hyperlipidemia type Tobacco use disorder Reactive depression Dysthymic disorder Moderate episode of recurrent major depressive disorder (HCC) Alcohol-induced chronic pancreatitis (HCC) Chronic pancreatitis [facility]* Diagnosis Numbness and tingling of both lower extremities- Primary CHUY (acute kidney injury) (HCC) Acute kidney failure, unspecified Essential hypertension, benign Hyperlipidemia, unspecified hyperlipidemia type [facility]* Diagnosis Neuropathy- Primary Mononeuritis of unspecified site Numbness and tingling of both lower extremities Numbness and tingling of both feet Claustrophobia Other isolated or specific phobias documented in this encounter [facility] note* Diagnosis CHUY (acute kidney injury) (HCC)- Primary Acute kidney failure, unspecified [facility]* Diagnosis Cellulitis of right orbital region- Primary Orbital cellulitis CHUY (acute kidney injury) (HCC) Acute kidney failure, unspecified Uncontrolled hypertension Unspecified essential hypertension Tobacco abuse, in remission Personal history of tobacco use, presenting hazards to health Lung mass Swelling, mass, or lump in chest documented [facility]* Diagnosis Prediabetes- Primary Other abnormal glucose documented in this encounter [facility] note* Diagnosis Thrush Candidiasis of mouth [facility]* Diagnosis Hyperlipidemia Other and unspecified hyperlipidemia documented in this encounter [facility] note* Diagnosis Hyperlipidemia, unspecified hyperlipidemia type documented in this encounter [facility] note* Diagnosis Arthralgia of right temporomandibular joint- Primary Arthralgia of temporomandibular joint Insomnia, unspecified type Nausea Nausea alone Alcohol use disorder, moderate, dependence (HCC) [facility]* Diagnosis Encounter for screening mammogram for breast cancer documented [facility]* Diagnosis Vitamin D deficiency Unspecified vitamin D deficiency documented in this encounter [facility] note* Diagnosis Onset Date Resolution Status Asthma chronic Chronic respiratory failure with hypoxia chronic COPD (chronic obstructive pulmonary disease) chronic Smoking greater than 30 pack years [facility] Work Phone: Evaluation note* Diagnosis Tachycardia- Primary Tachycardia, unspecified Alcohol-induced chronic pancreatitis (HCC) Chronic pancreatitis Hyperlipidemia, unspecified hyperlipidemia type Insomnia, unspecified type Vitamin D deficiency Unspecified vitamin D deficiency Chronic obstructive pulmonary disease, unspecified COPD type (HCC) Prediabetes Other abnormal glucose [facility]* Diagnosis Onset Date Resolution Status Pleurisy acute Pneumonia acute Acute on chronic hypoxic respiratory failure chronic COPD (chronic obstructive pulmonary disease) [facility] Work Phone: Evaluation note* Diagnosis Essential hypertension, benign- Primary Hyponatremia Hyposmolality and/or hyponatremia Leukocytosis, unspecified type COPD with exacerbation (HCC) Obstructive chronic bronchitis with exacerbation Pneumonia due to infectious organism, unspecified laterality, unspecified part of lung documented in this encounter [facility] note* Diagnosis Onset Date Resolution Status Pleurisy acute COPD (chronic obstructive pulmonary disease) [facility] Work Phone: Evaluation note* Diagnosis Chronic obstructive pulmonary disease, unspecified COPD type (HCC) documented in this encounter [facility] note* Diagnosis Nausea Nausea alone documented in this encounter [facility] note* Diagnosis Pneumonia due to infectious organism, unspecified laterality, unspecified part of lung- Primary Acute right ankle pain documented in this encounter [facility] note* Diagnosis Hyperlipidemia, unspecified hyperlipidemia type Vitamin D deficiency Unspecified vitamin D deficiency Chronic obstructive pulmonary disease, unspecified COPD type (HCC) [facility]* Diagnosis Chronic obstructive pulmonary disease, unspecified COPD type (HCC) documented [facility]* Diagnosis Chronic obstructive pulmonary disease, unspecified COPD type (HCC) [facility]* Diagnosis Chronic obstructive pulmonary disease, unspecified COPD type (HCC) [facility]* Diagnosis Encounter for screening mammogram for breast cancer documented in this encounter [facility] note* Diagnosis Anxiety- Primary Anxiety state, unspecified Alcohol-induced chronic pancreatitis (HCC) Chronic pancreatitis Chronic obstructive pulmonary disease, unspecified COPD type (HCC) Essential hypertension Unspecified essential hypertension [facility]* Diagnosis Pneumonia due to infectious organism, unspecified laterality, unspecified part of lung Acute right ankle pain [facility]* Diagnosis Chronic obstructive pulmonary disease, unspecified COPD type (HCC) documented in this encounter [facility] note* Diagnosis Numbness and tingling of both lower extremities documented in this encounter [facility] note* Diagnosis Chronic obstructive pulmonary disease, unspecified COPD type (HCC) [facility]* Diagnosis Chronic obstructive pulmonary disease, unspecified COPD type (HCC) [facility]* Diagnosis Anxiety- Primary Anxiety state, unspecified Alcohol-induced chronic pancreatitis (HCC) Chronic pancreatitis Nausea Nausea alone Encounter for immunization Need for other specified prophylactic vaccination against single bacterial disease Insomnia, unspecified type Leukocytosis, unspecified type [facility]* Diagnosis Shortness of breath- Primary Chronic obstructive pulmonary disease with acute exacerbation (HCC) Obstructive chronic bronchitis with exacerbation Upper abdominal pain Abdominal pain, other specified site Nausea Nausea alone Urinary incontinence, unspecified type Urinary frequency Elevated glucose Other abnormal glucose Tobacco use disorder Pulmonary emphysema, unspecified emphysema type (HCC) documented [facility]* Diagnosis Shortness of breath Chronic obstructive pulmonary disease with acute exacerbation (HCC) Obstructive chronic bronchitis with exacerbation Tobacco use disorder Pulmonary emphysema, unspecified emphysema type (HCC) documented [facility]* Diagnosis Chronic obstructive pulmonary disease, unspecified COPD type (HCC)- Primary Generalized abdominal tenderness without rebound tenderness Upper abdominal pain Abdominal pain, other specified site Elevated lipase Other nonspecific abnormal serum enzyme levels Nausea Nausea alone Alcoholic hepatitis without ascites Acute alcoholic hepatitis Alcohol use disorder, moderate, dependence (HCC) Acute pancreatitis, unspecified complication status, unspecified pancreatitis type documented [facility] this [facility]* Diagnosis Chronic obstructive pulmonary disease, unspecified COPD type (HCC) documented [facility]* Diagnosis Alcoholic hepatitis without ascites Acute alcoholic hepatitis Acute pancreatitis, unspecified complication status, unspecified pancreatitis type Upper abdominal pain Abdominal pain, other specified site Nausea Nausea alone Elevated lipase Other nonspecific abnormal serum enzyme levels Generalized abdominal tenderness without rebound tenderness [facility]* Diagnosis Vitamin D deficiency Unspecified vitamin D deficiency [facility]* Diagnosis Alcohol-induced chronic pancreatitis (HCC)- Primary Chronic pancreatitis Chronic recurrent pancreatitis (HCC) Chronic pancreatitis Chronic RUQ pain Abdominal pain, right upper quadrant Abdominal bloating Flatulence, eructation, and gas pain Nausea Nausea alone Gastroesophageal reflux disease without esophagitis Esophageal reflux [facility]* Diagnosis Cough with sputum- Primary Cough Essential hypertension Unspecified essential hypertension COPD with exacerbation (HCC) Obstructive chronic bronchitis with exacerbation COPD with exacerbation (HCC) Obstructive chronic bronchitis with exacerbation [facility]* Diagnosis COPD with exacerbation (HCC) Obstructive chronic bronchitis with exacerbation [facility]* Diagnosis Other chronic pancreatitis (HCC)- Primary [facility]* Diagnosis Chronic recurrent pancreatitis (HCC) Chronic pancreatitis Alcohol-induced chronic pancreatitis (HCC) Chronic pancreatitis Chronic RUQ pain Abdominal pain, right upper quadrant documented [facility]* Diagnosis Hyperlipidemia Other and unspecified hyperlipidemia [facility]* Diagnosis Hospital discharge follow-up- Primary Other follow-up examination Chronic recurrent pancreatitis (HCC) Chronic pancreatitis Chronic obstructive pulmonary disease, unspecified COPD type (HCC) Dysphagia, unspecified type Essential hypertension, benign Tobacco use disorder Smoker Tobacco use disorder [facility]* Diagnosis Chronic recurrent pancreatitis (HCC) Chronic pancreatitis Chronic obstructive pulmonary disease, unspecified COPD type (HCC) Hospital discharge follow-up Other follow-up examination documented [facility]* Diagnosis Onset Date Resolution Status Admit Date Acute hypoxic respiratory failure acute December 04, 2024 6:03pm Chronic pancreatitis chronic Lino h 2024 6:03pm COPD with acute exacerbation chronic December 04, 2024 6:03pm [facility] Work Phone: Evaluation note* Diagnosis Chronic obstructive pulmonary disease with acute exacerbation (HCC) Obstructive chronic bronchitis with exacerbation [facility]* Diagnosis Gout, unspecified cause, unspecified chronicity, unspecified site- Primary Calculus of pancreatic duct (HCC) Other specified disease of pancreas Chronic recurrent pancreatitis (HCC) Chronic pancreatitis Chronic obstructive pulmonary disease, unspecified COPD type (HCC) Pulmonary emphysema, unspecified emphysema type (HCC) Tobacco use disorder [facility]* Diagnosis Nausea Nausea alone [facility]* Diagnosis Hyperlipidemia, unspecified hyperlipidemia type [facility]* Diagnosis Other chronic pancreatitis (HCC) [facility]* Diagnosis Chronic recurrent pancreatitis (HCC)- Primary Chronic pancreatitis [facility]* Diagnosis Hospital discharge follow-up- Primary Other follow-up examination Acute respiratory failure with hypoxia (HCC) Acute respiratory failure Chronic recurrent pancreatitis (HCC) Chronic pancreatitis Norovirus Enteritis due to [place] virus Pneumonia of both lungs due to infectious organism, unspecified part of lung Presence of pancreatic duct stent Alcoholic hepatitis without ascites (HCC) Acute alcoholic hepatitis Alcohol use disorder, moderate, dependence (HCC) [facility] Diagnosis Chronic recurrent pancreatitis (HCC)- Primary Chronic pancreatitis [facility]* Diagnosis Subclavian arterial stenosis- Primary Stricture [...] unspecified chronicity (HCC) [facility]* Diagnosis Chronic pancreatitis, unspecified pancreatitis type (HCC)- Primary Generalized abdominal pain Abdominal pain, generalized [facility]* Diagnosis Encounter for screening mammogram for breast cancer [facility]* Diagnosis Hyperlipidemia Other and unspecified hyperlipidemia [facility]* Diagnosis Essential hypertension Unspecified essential hypertension documented in [facility] Diagnosis Acute pancreatitis without infection or necrosis, unspecified pancreatitis type (HCC) Chronic pancreatitis, unspecified pancreatitis type (HCC) Generalized abdominal pain Abdominal pain, generalized documented in this encounter [facility] Diagnosis Subclavian artery stenosis, left- Primary Atherosclerosis of other specified arteries documented in this encounter [facility] Diagnosis Chronic pancreatitis, unspecified pancreatitis type (HCC)- Primary Generalized abdominal pain Abdominal pain, generalized Chronic obstructive pulmonary disease with acute lower respiratory infection (HCC) Obstructive chronic bronchitis with exacerbation Dependence on supplemental oxygen Hearing loss of right ear, unspecified hearing loss type documented in this encounter [facility] Diagnosis Chronic pancreatitis, unspecified pancreatitis type (HCC) Generalized abdominal pain Abdominal pain, generalized Nausea Nausea alone documented in [facility] Author Carin Meraz [facility] January 02, 2024 10:42pm Note Date/Time January 02, 2024 10:1 0pm [facility] Medical Records Department [facility] [place] [address] H&P Exam - Hospitalist 01/02/24 2208 MR#: [id number] Acct: [id number] Name: GRACIE BANUELOS Rep #:[id number] : 1965 58 From: Carin Meraz MD PCP: Anat Easton, MINI LAB OPERATOR-C Status:ADM IN Location: [facility] [id number] HPI - General General Date of Admission: 01/02/24 Date of Service: 01/02/24 Chief Complaint: URI sxs, cough, dyspnea, worsening. HPI Narrative The patient is a 58 y/o F w/ PMHx: EtOH abuse, Tobacco use, COPD/Asthma w/ Chronic Hypoxic Respiratory Failure (PRN), HTN, HLD, Chronic anemia, Anxiety andDepression, Chronic pancreatitis associated with EtOH abuse who presents to the [facility] ED on 01/02/24 with history [...] 1, Rocephin 1 g IV x 1. [facility] Medical History Anemia Anxiety and depression Arthritis [...] DAILY BP 11/01/22 [History Last Taken Unknown] cyiwfo-fyhorafo-rfajdzv 24,000-76,000-120,000 unit capsule,delayed rel (Creon) 1cap PO [...] Allergy Other Verified 01/02/24 18:59 hydrocodone [From [place]] AdvReac Itching Verified 01/02/24 18:59 Family History [...] 81.7 H, Lymph % (Auto) 9.6 L, [place] % (Auto) 6.9, Eos % (Auto) 0.6, [...] with EtOH abuse who presents to the [facility] ED on 01/02/24 with history [...] Patient does not have healthcare power of compliance attorney or living will in place but [...] Time: 16minutes. Charges/Coding Visit Charges Inpatient E&M: 78485 Init Hosp L3 Procedures Hospitalists Procedures: 31077 Advncd Care Plan 30 Min 01/02/24 2242 <Electronically signed by Carin Meraz MD> Cosigner Signature (if applicable): CC: CARMEN Coppola Older; Dr. Carin Meraz MD~ Signed [facility] Work Phone: History and physical note Author Pako Fernández [facility] Note Date/Time March 13, 2025 11:2 8pm [facility] Medical Records Department [address] [place] [address] History & Physical Exam 03/13/25 2320 MR#: [id number] Acct: [id number] Name: GRACIE BANUELOS Rep #:[id number] : 1965 59 From: Pako Fernández MD [...] several months. She was recently admitted to [facility] and treated by GI specialist Dr. Portillo. She had a surgery performed for her pancreatitis and a stent was placed this past Thursday. Patient states she has had worsening epigastric abdominal pain since discharge on Thursday. She denies fever, chills, shortness of breath, chest pain, diarrhea constipation or dysuria. Patient has been accepted to [facility] for transferfrom the emergency room, however, a bed is not available this evening and patient will be admitted temporarily in our facility while pending transfer to tertiary care facility to address pancreatic stent and acute pancreatitis. [facility] Medical History Stenosis of left subclavian [...] Allergy Other Verified 02/26/25 13:57 hydrocodone (From [place]) AdvReac Itching Verified 02/26/25 13:57 Family History [...] (Auto) 83.5 H, Lymph% (Auto) 6.3 L, [place] % (Auto) 8.1, Eos % (Auto) 0.5, [...] Clarity Clear, Urine pH 7.0, Ur Specific [place] 1.005, Urine Protein 30 H, Urine Glucose [...] evidence of acute cardiopulmonary pathology. Reading Location: [facility] Assessment & Plan Assessment/Plan (1) Smoking greater than 30 pack years: (2) COPD (chronic obstructive pulmonary disease): QUALIFIERS: COPD type: emphysema Emphysema type: centrilobular Qualified Code(s): J43.2 - Centrilobular emphysema (3) Abdominal pain: (4) Chronic pancreatitis: QUALIFIERS: Pancreatitis type: alcohol induced Qualified Code(s):K86.0 - Alcohol-induced chronic pancreatitis PLAN: Plan 1. Acute on chronic pancreatitis?admit patient temporarily to our facility pending transfer to [facility], make n.p.o., IV normal saline at [...] Elkins MD; Dr. Pako Fernández MD~ Signed [facility] Work Phone: Hospital Discharge instructions* Activity:activity as tolerated. * Labs 1 (Modify Template):Lab Test(s): RFPDate To Be Drawn: 10/30/22Call Results To: Soila Rustam, LEGAL EXECUTIVE ASSISTANT or Fax Results To: [phone]: PCP consider monitoring improvement of CHUY upon recent hospital admission * Oxygen:Administer oxygen at 2 liters/min via nasal cannula to maintain SpO2 % of 88-92 with activity. * Additional Orders:Additional Instructions: Dear Ms. Banuelos,You presented to us as transfer from [facility] for a possible biopsy of the right [...] with Primary Care ProviderScheduled Date/Time: 15-Dec-2022 16:00Location: [address] [place] [address], [place] [address] faxPhone Number: [phone]: Please bring your insurance card, photo id, a list of medication in the original bottle, any co-pays you may have, and the discharge summary * Follow Up Appointment 2:Physician/Dept/Service: Ophthalmology: Dr Marsheduled Date/Time: 03-Dec-2022 15:30Location: [facility] [address] , [address] [facility] [place] [address]Bhpdf Number: [phone]: Please bring your insurance card, photo id, a list of medication in the original bottle, any co-pays you may have, and the discharge summary * Follow Up Appointment 3:Physician/Dept/Service: Soila Easton CNPLocation: [address] [facility] [place] [address]Oqkdu Number: or [facility] instructions Additional Instructions Take medications as prescribed. Follow-up with your doctor.[facility] Work Phone: Hospital Discharge instructions Additional Instructions Follow-up with pain management on January 05 as scheduled. Quit smoking. Return with fever, increased pain, new or worsening symptoms.[facility] Work Phone: Hospital Discharge instructions Additional Instructions Your blood work and CT are normal but I this is a flareup of your chronic pancreatitis. I prescribed more Zofran. Use tramadol as needed for breakthrough pain. Follow-up with your GI specialist.[facility] Work Phone: Hospital Discharge instructionsAdditional Instructions Take your pain medications as prescribed. Call pain management as planned tomorrow. Your evaluation in the Emergency Department did not reveal any acute reason for admission. However, I want to emphasize that you may be early in the course of a disease process or illness even if it is not present. For this reason you should follow-up within 24 hours for reevaluation with either your primary care physician or if necessary back here in the Emergency Department. You should return to the Emergency Department immediately if your symptoms worsen or new symptoms develop.[facility] Work Phone: Hospital Discharge instructionsAdditional Instructions discussed with your PCP if they will bridge your pain medicines oxycodone. You are on tramadol. Take the medications prescribed by pain management. Follow-up with them.[facility] Work Phone: Reason for referral (narrative)* Diagnostic Procedure Only (Routine) - Authorized Specialty Diagnoses / Procedures Referred By Contac t Referred To Contact US IMAGING Diagnoses Alcohol-induced chronic pancreatitis (HCC) Alcoholic hepatitis without ascites Procedures US ABD RT UPPER QUADRANT US ABDOMINAL REAL TIME W/IMAGE LIMITED Soila Easton APRN.LEGAL EXECUTIVE ASSISTANT [address] [place] [address] Us Imaging Referral ID Status Reason Start Date Expiration Date Visits Requested Visits Authorized [id number] Authorized Auto-Generat ed Referral 04/17/2022 05/17/2023 1 1 * Consult, Test, Treat (Routine) - Authorized Specialty Diagnoses / Procedures Referred By Contac t Referred To Contact Gastroenterology Diagnoses Alcohol-induced chronic pancreatitis (HCC) Alcoholic hepatitis without ascites Procedures CONSULT TO GASTROENTEROLOGY OFFICE/OUTPATIENT [facility] 60-74 MINUTES Soila Easton APRN.CNP [address] [place] [address] Referral ID Status Reason Start Date Expiration Date Visits Requested Visits Authorized [id number] Authorized PCP Requested Referral 04/17/2022 04/17/2023 1 1 [facility] for referral (narrative)* Diagnostic Procedure Only (Routine) - Closed Specialty Diagnoses / Procedures Referred By Travis t Referred To Contact US IMAGING Diagnoses Alcohol-induced chronic pancreatitis (HCC) Alcoholic hepatitis without ascites Procedures US ABD RT UPPER QUADRANT US ABDOMINAL REAL TIME W/IMAGE LIMITED Soila Easton APRN.LEGAL EXECUTIVE ASSISTANT [address] [place] [address] Us Imaging Referral ID Status Reason Start Date Expiration Date V isits Requested Visits Authorized [id number] Closed Auto-Generate d Referral 04/17/2022 05/17/2023 1 1 [facility] for referral (narrative)* Diagnostic Procedure Only (Routine) - Pending Review Specialty Diagnoses / Procedures Referred By Contac t Referred To Contact BR IMAGING Diagnoses Encounter for screening mammogram for breast cancer Procedures SIMI SCREENING SCREENING MAMMOGRAPHY BI 2-VIEW BREAST INC Misbah Chanel MD [address] [place] [address] Br Imaging [address] [place] [address] Referral ID Status Reason Start Date Expiration Date Visits Requested Visits Authorized [id number] Pending Review Auto-Generat ed Referral 06/25/2022 07/25/2023 1 1 T [facility] for referral (narrative)* Outpatient Procedure (Routine) - Authorized Specialty Diagnoses / Procedures Referred By Travis t Referred To Contact [facility] Diagnoses Numbness and tingling of both lower extremities Neuropathy Numbness and tingling of both feet Procedures EMG(NEURO/NI) NERVE CONDUCTION STUDIES 9-10 STUDIES Mariluz Verduzco PA-C [address] [place] [address] [facility] [place] [address] [place] [address] Referral ID Status Reason Start Date Expiration Date Visits Requested Visits Authorized [id number] Authorized Auto-Generat ed Referral 11/26/2022 09/27/2023 1 1 [facility] for referral (narrative)* Diagnostic Procedure Only (Routine) - Pending Review Specialty Diagnoses / Procedures Referred By Travis melendez Referred To Contact BR IMAGING Diagnoses Encounter for screening mammogram for breast cancer Procedures SIMI SCREENING SCREENING MAMMOGRAPHY BI 2-VIEW BREAST INC iMsbah Chanel MD [address] [place] [address] [facility] [address] [place] [id number] Referral ID Status Reason Start Date Expiration Date Visits Requested Visits Authorized [id number] Pending Review Auto-Generat ed Referral 06/03/2023 07/02/2024 1 1 T [facility] for referral (narrative)* Diagnostic Procedure Only (Routine) - New Request Specialty Diagnoses / Procedures Referred By Travis melendez Referred To Contact BR IMAGING Diagnoses Encounter for screening mammogram for breast cancer Procedures SIMI SCREENING W CYNTHIA SCREENING DIGITAL BREAST TOMOSYNTHESIS BI SCREENING MAMMOGRAPHY BI 2-VIEW BREAST INC Misbah Chanel MD [address] [place] [address] [place] [address] Br Imaging [address] [place] [address] Referral ID Status Reason Start Date Expiration Date Visits Requested Visits Authorized [id number] New Request Auto-Generat ed Referral 05/04/2024 06/03/2025 1 1 [facility] for referral (narrative)* Diagnostic Procedure Only (Routine) - Closed Specialty Diagnoses / Procedures Referred By Contac t Referred To Contact XR IMAGING Diagnoses Numbness and tingling of both lower extremities Procedures XR LUMBAR GENERAL 3V AP/LAT/L5-S1 RADEX SPINE LUMBOSACRAL 2/3 VIEWS Misbah Elkins MD [address] [place] [address] [place] [address] Referral ID Status Reason Start Date Expiration Date V isits Requested Visits Authorized [id number] Closed Auto-Generate d Referral 11/25/2022 12/25/2023 1 1 [facility] for referral (narrative)* Diagnostic Procedure Only (Routine) - Authorized Specialty Diagnoses / Procedures Referred By Contac t Referred To Contact US IMAGING Diagnoses Upper abdominal pain Nausea Procedures US ABD RIGHT UPPER QUADRANT US ABDOMINAL REAL TIME W/IMAGE LIMITED Soila Easton APRN.CNP [address] [place] [address] [place] [address] Referral ID Status Reason Start Date Expiration Date Visits Requested Visits Authorized [id number] Authorized Auto-Generat ed Referral 09/09/2025 1 1 [facility] for referral (narrative)* Outpatient Procedure (Routine) - New Request Specialty Diagnoses / Procedures [facility] To [facility] Diagnoses Chronic recurrent pancreatitis (HCC) Alcohol-induced chronic pancreatitis (HCC) Chronic RUQ pain Procedures EGD - THERAPEUTIC, EUS, OR TUBE INTERVENTIONS EGD TRANSORAL BIOPSY SINGLE/MULTIPLE Juan Senior APRN.LEGAL EXECUTIVE ASSISTANT [address] [place] [address] [facility] [place] [address] [place] [address] Referral ID Status Reason Start Date Expiration Date Visits Requested Visits Authorized [id number] New Request Auto-Generat ed Referral 11/02/2024 11/02/2025 1 1 * Consult, Test, Treat (Routine) - Pending Review Specialty Diagnoses / Procedures Referred By Contac t Referred To Contact [facility] [place] Diagnoses Chronic recurrent pancreatitis (HCC) Alcohol-induced chronic pancreatitis (HCC) Chronic RUQ pain Procedures CONSULT TO [facility] OFFICE/OUTPATIENT [facility] 60 MINUTES Juan Senior APRN.LEGAL EXECUTIVE ASSISTANT [address] [place] [address] Referral ID Status Reason Start Date Expiration Date Visits Requested Visits Authorized [id number] Pending Review PCP Requested Referral 11/02/2024 01/31/2025 1 1 [facility])No reason for referral information availableWMartin Memorial [facility] Work Phone: Reason for visit Narrative* Diagnostic Procedure Only (Routine) - Closed Specialty Diagnoses / Procedures Referred By Contac t Referred To Contact XR IMAGING Diagnoses Numbness and tingling of both lower extremities Procedures XR LUMBAR GENERAL 3V AP/LAT/L5-S1 RADEX SPINE LUMBOSACRAL 2/3 VIEWS Misbah Elkins MD [address] [place] [address] Xr Imaging [facility] [address] Referral ID Status Reason Start Date Expiration Date V isits Requested Visits Authorized [id number] Closed Auto-Generate d Referral 11/25/2022 12/25/2023 1 1 [facility] Narrative* Outpatient Procedure (Routine) - Closed Specialty Diagnoses / Procedures Referred By Contac t Referred To Contact [facility] Diagnoses Chronic recurrent pancreatitis (HCC) Alcohol-induced chronic pancreatitis (HCC) Chronic RUQ pain Procedures EGD - THERAPEUTIC, EUS, OR TUBE INTERVENTIONS EGD TRANSORAL BIOPSY SINGLE/MULTIPLE Juan Senior APRN.LEGAL EXECUTIVE ASSISTANT [address] [place] [address] Phone: tel: fax: [facility] [address] [place] [address] Referral ID Status Reason Start Date Expiration Date V isits Requested Visits Authorized [id number] Closed Auto-Generate d Referral 11/02/2024 11/02/2025 1 1 [facility] Narrative* Outpatient Procedure (Routine) - Closed Specialty Diagnoses / Procedures Referred By Contac t Referred To Contact [facility] Diagnoses Other chronic pancreatitis (HCC) Procedures ERCP ERCP DX COLLECTION SPECIMEN BRUSHING/WASHING Jane Farrell MD [address] [place] [address] Phone: tel: fax: [facility] [address] [address] Referral ID Status Reason Start Date Expiration Date V isits Requested Visits Authorized [id number] Closed Auto-Generate d Referral 12/06/2024 09/27/2025 1 1 [facility] Summary Purpose Family History Relationship Condition Age at Onset Recorded Date/T ryan mother Diabetes mellitus Unknown Hypertension Unknown Cardiac disease Unknown High blood cholesterol Unknown Arthritis Unknown Disorder of thyroid Unknown brother Hypertension Unknown sister Malignant neoplasm Unknown father Kidney disorder Unknown daughter Disorder of thyroid Unknown Unknown Family Member Name Dates Details No significant family histor y: Mother, Father(V49.89, Z78.9) Status:Active Advance Directives Documents on File Type Date Recorded Patient Gericare Aide Expl anation Advance Directive(s) 03/16/2025 3:08 PM Date Activated Date Inactivated Comments 03/15/2025 11:09 PM Question Answer Comments Full Code Order Discussed With: Discussion Not M edically Appropriate Documents on File Type Date Recorded Patient Gericare Aide Expl anation Advance Directive(s) 01/10/2021 8:39 AM Advance Directive(s) 12/28/2020 10:28 AM Advance Directive(s) 12/05/2019 6:41 AM Advance Directive Response Recorded Date/ Time Advance Directives No October 11:35am Living Will No March 03, 2022 1 2:49pm Power of Gear Cutting Machine Set Up Operator No March 03, 2022 12:49pm Documents on File Type Date Recorded Patient Gericare Aide Expl anation Advance Directive(s) 01/10/2021 8:39 AM Advance Directive(s) 12/28/2020 10:28 AM Advance Directive(s) 12/05/2019 6:41 AM Advance Directive Response Recorded Date/ Time Advance Directives No October 10:35am Living Will No October 19 7:08pm Power of Gear Cutting Machine Set Up Operator No October 19, 2022 7:08pm Latest [...] Will No November 01 11:45pm Power of Gear Cutting Machine Set Up Operator No November 01, 2022 11:45pm Advance Directive Response Recorded Date/ Time Advance Directives No October 11:35am Living Will No June 02, 2 023 3:53pm Power of Gear Cutting Machine Set Up Operator No June 02, 2023 3:53pm Advance Directive Response Recorded Date/ Time Advance Directives No October 11:35am Living Will No July 08 6:10pm Power of Gear Cutting Machine Set Up Operator No July 08, 2023 6:10pm Advance Directive Response Recorded Date/ Time Advance Directives No October 11:35am Living Will No January 02, 2024 7:23pm Power of Gear Cutting Machine Set Up Operator No January 01 7:23pm Advance Directive Response Recorded Date/ Time Advance Directives No October 11:35am Living Will No January 02, 2024 11:15pm Power of Gear Cutting Machine Set Up Operator No January 01 11:15pm Advance Directive Response Recorded Date/ Time Advance Directives No October 11:35am Living Will No January 19, 2024 11:39pm Power of Gear Cutting Machine Set Up Operator No January 18 11:39pm Advance Directive Response Recorded Date/ Time Living Will No December 04, 2024 4:02pm Power of Gear Cutting Machine Set Up Operator No December 04 4:02pm Advance Directives No October 11:35am Advance Directive Response Recorded Date/ Time Living Will No December 04, 2024 8:21pm Power of Gear Cutting Machine Set Up Operator No December 04 8:21pm Advance Directives No October 11:35am Advance Directive Response Recorded Date/ Time Living Will No December 04, 2024 8:21pm Do you have a Healthcare Power of Gear Cutting Machine Set Up Operator? No December 04, 2024 8:21pm Living Will No December 24, 2024 8:13pm Do you have a Healthcare Power of Gear Cutting Machine Set Up Operator? No December 24, 2024 8:13pm Advance Directives No October 11:35am Advance Directive Response Recorded Date/ Time Living Will No December 04, 2024 8:21pm Do you have a Healthcare Power of Gear Cutting Machine Set Up Operator? No December 04, 2024 8:21pm Living Will No December 24, 2024 8:13pm Do you have a Healthcare Power of Gear Cutting Machine Set Up Operator? No December 24, 2024 8:13pm Living Will No January 01, 2025 8:27pm Do you have a Healthcare Power of Gear Cutting Machine Set Up Operator? No January 01, 2025 8:27pm Advance Directives No October 11:35am Advance Directive Response Recorded Date/ Time Living Will No January 19, 2024 11:39pm Do you have a Healthcare Power of Gear Cutting Machine Set Up Operator? No January 19, 2024 11:39pm Living Will No December 04, 2024 8:21pm Do you have a Healthcare Power of Gear Cutting Machine Set Up Operator? No December 04, 2024 8:21pm Living Will No December 24, 2024 8:13pm Do you have a Healthcare Power of Gear Cutting Machine Set Up Operator? No December 24, 2024 8:13pm Living Will No January 01, 2025 8:27pm Do you have a Healthcare Power of Gear Cutting Machine Set Up Operator? No January 01, 2025 8:27pm Do you have a Healthcare Power of Gear Cutting Machine Set Up Operator? Yes January 27, 2025 10:20am Name of Medical Power of Gear Cutting Machine Set Up Operator sister January 27, 2025 10:20am Advance Directives No October 11:35am Advance Directive Response Recorded Date/ Time Living Will No January 19, 2024 11:39pm Do you have a Healthcare Power of Gear Cutting Machine Set Up Operator? No January 19, 2024 11:39pm Living Will No December 04, 2024 8:21pm Do you have a Healthcare Power of Gear Cutting Machine Set Up Operator? No December 04, 2024 8:21pm Living Will No December 24, 2024 8:13pm Do you have a Healthcare Power of Gear Cutting Machine Set Up Operator? No December 24, 2024 8:13pm Living Will No January 01, 2025 8:27pm Do you have a Healthcare Power of Gear Cutting Machine Set Up Operator? No January 01, 2025 8:27pm Do you have a Healthcare Power of Gear Cutting Machine Set Up Operator? Yes January 27, 2025 10:20am Name of Medical Power of Gear Cutting Machine Set Up Operator sister January 27, 2025 10:20am Do you have a Healthcare Power of Gear Cutting Machine Set Up Operator? No February 26, 2025 2:12pm Advance Directives No October 11:35am Advance Directive Response Recorded Date/ Time Living Will No January 19, 2024 11:39pm Do you have a Healthcare Power of Gear Cutting Machine Set Up Operator? No January 19, 2024 11:39pm Living Will No December 04, 2024 8:21pm Do you have a Healthcare Power of Gear Cutting Machine Set Up Operator? No December 04, 2024 8:21pm Living Will No December 24, 2024 8:13pm Do you have a Healthcare Power of Gear Cutting Machine Set Up Operator? No December 24, 2024 8:13pm Living Will No January 01, 2025 8:27pm Do you have a Healthcare Power of Gear Cutting Machine Set Up Operator? No January 01, 2025 8:27pm Do you have a Healthcare Power of Gear Cutting Machine Set Up Operator? Yes January 27, 2025 10:20am Name of Medical Power of Gear Cutting Machine Set Up Operator sister January 27, 2025 10:20am Do you have a Healthcare Power of Gear Cutting Machine Set Up Operator? No March 13, 2025 12:02pm Do you have a Healthcare Power of Gear Cutting Machine Set Up Operator? No February 26, 2025 2:12pm Advance Directives No October 11:35am Advance Directive Response Recorded Date/ Time Living Will No January 19, 2024 11:39pm Do you have a Healthcare Power of Gear Cutting Machine Set Up Operator? No January 19, 2024 11:39pm Living Will No December 04, 2024 8:21pm Do you have a Healthcare Power of Gear Cutting Machine Set Up Operator? No December 04, 2024 8:21pm Living Will No December 24, 2024 8:13pm Do you have a Healthcare Power of Gear Cutting Machine Set Up Operator? No December 24, 2024 8:13pm Living Will No January 01, 2025 8:27pm Do you have a Healthcare Power of Gear Cutting Machine Set Up Operator? No January 01, 2025 8:27pm Do you have a Healthcare Power of Gear Cutting Machine Set Up Operator? Yes January 27, 2025 10:20am Name of Medical Power of Gear Cutting Machine Set Up Operator sister January 27, 2025 10:20am Do you have a Healthcare Power of Gear Cutting Machine Set Up Operator? No March 14, 2025 1:26am Do you have a Healthcare Power of Gear Cutting Machine Set Up Operator? No February 26, 2025 2:12pm Advance Directives No October 11:35am Date Activated Date Inactivated Comments 03/15/2025 11:09 PM 03/23/2025 10:54 PM Documents on File Type Date Recorded Patient Gericare Aide Expl anation Advance Directive(s) 03/16/2025 3:08 PM Date Activated Date Inactivated Comments 03/15/2025 11:09 PM 03/23/2025 10:54 PM Question Answer Comments Full Code Order Discussed With: Discussion Not M edically Appropriate Advance Directive Response Recorded Date/ Time Living Will No January 19, 2024 11:39pm Do you have a Healthcare Power of Gear Cutting Machine Set Up Operator? No January 19, 2024 11:39pm Living Will No December 24, 2024 8:13pm Do you have a Healthcare Power of Gear Cutting Machine Set Up Operator? No December 24, 2024 8:13pm Living Will No January 01, 2025 8:27pm Do you have a Healthcare Power of Gear Cutting Machine Set Up Operator? No January 01, 2025 8:27pm Do you have a Healthcare Power of Gear Cutting Machine Set Up Operator? Yes January 27, 2025 10:20am Name of Medical Power of Gear Cutting Machine Set Up Operator sister January 27, 2025 10:20am Do you have a Healthcare Power of Gear Cutting Machine Set Up Operator? No March 14, 2025 1:26am Do you have a Healthcare Power of Gear Cutting Machine Set Up Operator? No April 15, 2025 10:57pm Do you have a Healthcare Power of Gear Cutting Machine Set Up Operator? No February 26, 2025 2:12pm Advance Directives No October 11:35am Advance Directive Response Recorded Date/ Time Living Will No January 19, 2024 11:39pm Do you have a Healthcare Power of Gear Cutting Machine Set Up Operator? No January 19, 2024 11:39pm Living Will No December 24, 2024 8:13pm Do you have a Healthcare Power of Gear Cutting Machine Set Up Operator? No December 24, 2024 8:13pm Living Will No January 01, 2025 8:27pm Do you have a Healthcare Power of Gear Cutting Machine Set Up Operator? No January 01, 2025 8:27pm Do you have a Healthcare Power of Gear Cutting Machine Set Up Operator? Yes January 27, 2025 10:20am Name of Medical Power of Gear Cutting Machine Set Up Operator sister January 27, 2025 10:20am Do you have a Healthcare Power of Gear Cutting Machine Set Up Operator? No March 14, 2025 1:26am Do you have a Healthcare Power of Gear Cutting Machine Set Up Operator? Yes April 16, 2025 2:36am Do you have a Healthcare Power of Gear Cutting Machine Set Up Operator? No February 26, 2025 2:12pm Advance Directives No October 11:35am Advance Directive Response Recorded Date/ Time Living Will No January 19, 2024 11:39pm Do you have a Healthcare Power of Gear Cutting Machine Set Up Operator? No January 19, 2024 11:39pm Living Will No January 01, 2025 8:27pm Do you have a Healthcare Power of Gear Cutting Machine Set Up Operator? No January 01, 2025 8:27pm Do you have a Healthcare Power of Gear Cutting Machine Set Up Operator? Yes January 27, 2025 10:20am Name of Medical Power of Gear Cutting Machine Set Up Operator sister January 27, 2025 10:20am Do you have a Healthcare Power of Gear Cutting Machine Set Up Operator? No March 14, 2025 1:26am Do you have a Healthcare Power of Gear Cutting Machine Set Up Operator? Yes April 16, 2025 2:36am Do you have a Healthcare Power of Gear Cutting Machine Set Up Operator? No February 26, 2025 2:12pm Advance Directives No October 11:35am Advance Directive Response Recorded Date/ Time Living Will No January 19, 2024 11:39pm Do you have a Healthcare Power of Gear Cutting Machine Set Up Operator? No January 19, 2024 11:39pm Do you have a Healthcare Power of Gear Cutting Machine Set Up Operator? Yes January 27, 2025 10:20am Name of Medical Power of Gear Cutting Machine Set Up Operator sister January 27, 2025 10:20am Do you have a Healthcare Power of Gear Cutting Machine Set Up Operator? No March 14, 2025 1:26am Do you have a Healthcare Power of Gear Cutting Machine Set Up Operator? Yes April 16, 2025 2:36am Do you have a Healthcare Power of Gear Cutting Machine Set Up Operator? No February 26, 2025 2:12pm Advance Directives No October 11:35am Advance Directive Response Recorded Date/ Time Living Will No January 19, 2024 11:39pm Do you have a Healthcare Power of Gear Cutting Machine Set Up Operator? No January 19, 2024 11:39pm Do you have a Healthcare Power of Gear Cutting Machine Set Up Operator? Yes January 27, 2025 10:20am Name of Medical Power of Gear Cutting Machine Set Up Operator sister January 27, 2025 10:20am Do you have a Healthcare Power of Gear Cutting Machine Set Up Operator? No March 14, 2025 1:26am Do you have a Healthcare Power of Gear Cutting Machine Set Up Operator? Yes April 16, 2025 2:36am Do you have a Healthcare Power of Gear Cutting Machine Set Up Operator? No May 10, 2025 9:31pm Do you have a Healthcare Power of Gear Cutting Machine Set Up Operator? No February 26, 2025 2:12pm Advance Directives No October 11:35am Advance Directive Response Recorded Date/ Time Living Will No January 19, 2024 11:39pm Do you have a Healthcare Power of Gear Cutting Machine Set Up Operator? No January 19, 2024 11:39pm Do you have a Healthcare Power of Gear Cutting Machine Set Up Operator? Yes January 27, 2025 10:20am Name of Medical Power of Gear Cutting Machine Set Up Operator sister January 27, 2025 10:20am Do you have a Healthcare Power of Gear Cutting Machine Set Up Operator? No March 14, 2025 1:26am Do you have a Healthcare Power of Gear Cutting Machine Set Up Operator? Yes April 16, 2025 2:36am Do you have a Healthcare Power of Gear Cutting Machine Set Up Operator? No May 10, 2025 9:31pm Do you have a Healthcare Power of Gear Cutting Machine Set Up Operator? No February 26, 2025 2:12pm Do you have a Healthcare Power of Gear Cutting Machine Set Up Operator? Yes May 24, 2025 7:49pm Advance Directives No October 11:35am Advance Directive Response Recorded Date/ Time Living Will No January 19, 2024 11:39pm Do you have a Healthcare Power of Gear Cutting Machine Set Up Operator? No January 19, 2024 11:39pm Do you have a Healthcare Power of Gear Cutting Machine Set Up Operator? No March 14, 2025 1:26am Do you have a Healthcare Power of Gear Cutting Machine Set Up Operator? Yes April 16, 2025 2:36am Do you have a Healthcare Power of Gear Cutting Machine Set Up Operator? No May 10, 2025 9:31pm Do you have a Healthcare Power of Gear Cutting Machine Set Up Operator? No February 26, 2025 2:12pm Do you have a Healthcare Power of Gear Cutting Machine Set Up Operator? Yes May 24, 2025 7:49pm Advance Directives No October 11:35am Advance Directive Response Recorded Date/ Time Do you have a Healthcare Power of Gear Cutting Machine Set Up Operator? No March 14, 2025 1:26am Do you have a Healthcare Power of Gear Cutting Machine Set Up Operator? Yes April 16, 2025 2:36am Do you have a Healthcare Power of Gear Cutting Machine Set Up Operator? No May 10, 2025 9:31pm Do you have a Healthcare Power of Gear Cutting Machine Set Up Operator? Yes July 10, 2025 6:58am Do you have a Healthcare Power of Gear Cutting Machine Set Up Operator? No July 04, 2025 9:29am Do you have a Healthcare Power of Gear Cutting Machine Set Up Operator? Yes May 24, 2025 7:49pm Do you have a Healthcare Power of Gear Cutting Machine Set Up Operator? No July 06, 2025 8:23pm Advance Directives No October 11:35am Chief Complaint [...] 11:2 0pm PANCREATITIS, COMPLICATION WITH STENT Ju wa 2024 11:28pm PANCREATITIS, COMPLICATION WITH STENT Ju wa 2024 10:25am PANCREATITIS, COMPLICATION WITH STENT Ju wa 2024 8:20am PANCREATITIS, COMPLICATION WITH STENT Ju wa 2024 7:08pm Reason for Visit Admit Date [...] 2024 10:25am PANCREATITIS, COMPLICATION WITH STENT Ju 2024 8:20am PANCREATITIS, COMPLICATION WITH STENT Ju [...] 2:24pm E-ORDER April 27, 2025 10:2 3am RAN OUT OF PAIN PILLS FOR PANCREATITIS A ugust 2024 8:30pm Chief Complaint Admit Date sob January 27, 2025 10:13a m 9 M FU February 08, 2025 1:07p m ABDOMINAL PAIN February 26, 2025 1:57p m sob March 13, 2025 11:2 0pm PANCREATITIS, COMPLICATION WITH STENT Ju 2024 11:28pm PANCREATITIS, COMPLICATION WITH STENT Ju wa 2024 10:25am PANCREATITIS, COMPLICATION WITH STENT Ju wa 2024 8:20am PANCREATITIS, COMPLICATION WITH STENT Ju wa 2024 7:08pm PANCREATITIS, COMPLICATION WITH STENT Ju wa 2024 7:31am follow up April 10, 2025 [...] 2:24pm E-ORDER April 27, 2025 10:2 3am RAN OUT OF PAIN PILLS FOR PANCREATITIS A ugust 2024 8:30pm 3 M FU May 24, 2025 1: 00pm Chief Complaint Admit Date sob January 27, [...] 2:24pm E-ORDER April 27, 2025 10:2 3am RAN OUT OF PAIN PILLS FOR PANCREATITIS A ugust 2024 8:30pm 3 M FU May 24, 2025 1: 00pm Abd pain May 24, 2025 7: 40pm Reason for Visit Admit Date Acute cholecystitis [...] Chronic pancreatitis April 26, 2025 1:3 4pm Alcoholic hepatitis May 24, 2025 1: 00pm Anxiety and depression May 24, 2025 1:00pm Asthma May 24, 2025 1: 00pm Chronic respiratory failure with hypoxia May 24, 2025 1:00pm COPD (chronic obstructive pulmonary dise ase) May 24, 2025 1:00pm Smoking greater than 30 pack years Augus t 2024 1:00pm Chief Complaint Admit Date 9 M FU February 08, 2025 1:07p m ABDOMINAL PAIN February 26, 2025 1:57p m sob March 13, 2025 11:2 0pm PANCREATITIS, COMPLICATION WITH STENT Ju 2024 11:28pm PANCREATITIS, COMPLICATION WITH STENT Ju 2024 10:25am PANCREATITIS, COMPLICATION WITH STENT Ju 2024 8:20am PANCREATITIS, COMPLICATION WITH STENT Ju [...] 2:24pm E-ORDER April 27, 2025 10:2 3am RAN OUT OF PAIN PILLS FOR PANCREATITIS A ugust 2024 8:30pm 3 M FU May 24, 2025 1: 00pm Abd pain May 24, 2025 7: 40pm Chief Complaint Admit Date sob March 13, 2025 11:2 0pm PANCREATITIS, [...] 2:24pm E-ORDER April 27, 2025 10:2 3am RAN OUT OF PAIN PILLS FOR PANCREATITIS A ugust 2024 8:30pm 3 M FU May 24, 2025 1: 00pm Abd pain May 24, 2025 7: 40pm Abd pain July 06, 2025 7: 40pm abd pain July 10, 2025 6 :54am Reason for Visit Admit Date Abdominal pain March 13, 2025 11:2 8pm [...] Chronic pancreatitis April 26, 2025 1:3 4pm Alcoholic hepatitis May 24, 2025 1: 00pm Anxiety and depression May 24, 2025 1:00pm Asthma May 24, 2025 1: 00pm Chronic respiratory failure with hypoxia May 24, 2025 1:00pm COPD (chronic obstructive pulmonary dise ase) May 24, 2025 1:00pm Smoking greater than 30 pack years Augus t 2024 1:00pm History of insertion of pancreatic stent July 06, 2025 9:16am Chronic pancreatitis July 06, 2025 9 :16am Alcohol abuse July 06, 2025 9: 16am Reason for Referral Specialty Diagnoses / Procedures Referred By Travis melendez Referred To Contact Neurology Diagnoses Numbness and tingling of both lower extremities Procedures CONSULT TO NEUROLOGY OFFICE/OUTPATIENT [facility] 60-74 MINUTES Misbah Elkins MD [address] [place] [address] Referral ID Status Reason Start Date Expiration Date Visits Requested Visits Authorized [id number] Authorized PCP Requested Referral 11/25/2022 11/25/2023 1 1 Specialty Diagnoses / Procedures Referred By Travis melendez Referred To Contact XR IMAGING Diagnoses Numbness and tingling of both lower extremities Procedures XR LUMBAR GENERAL 3V AP/LAT/L5-S1 RADEX SPINE LUMBOSACRAL 2/3 VIEWS Misbah Elkins MD [address] [place] [address] Xr Imaging Referral ID Status Reason Start Date Expiration Date V isits Requested Visits Authorized [id number] Closed Auto-Generate d Referral 11/25/2022 12/25/2023 1 1 Specialty Diagnoses / Procedures Referred By Travis melendez Referred To Contact CT IMAGING Diagnoses Alcoholic hepatitis without ascites Acute pancreatitis, unspecified complication status, unspecified pancreatitis type Upper abdominal pain Nausea Elevated lipase Generalized abdominal tenderness without rebound tenderness Procedures CT ABD/PEL W IVCON CT ABD & PELVIS W/CONTRAST Soila Easton APRN.LEGAL EXECUTIVE ASSISTANT [address] [place] [address] [place] [address] Referral ID Status Reason Start Date Expiration Date Visits Requested Visits Authorized [id number] Pending Review Auto-Generat ed Referral 09/14/2025 1 1 Additional Source Comments INFORMATION SOURCE (unrecogn ized section and content) DATE CREATED AUTHOR 03/24/2018 [facility] ([place]) DATE CREATED AUTHOR AUTHOR'S ORGANIZ ATION 12/05/2019 [facility] DATE CREATED AUTHOR AUTHOR'S ORGANIZ ATION 12/07/2019 [facility] DATE CREATED AUTHOR AUTHOR'S ORGANIZ ATION 11/07/2022 [facility] DATE CREATED AUTHOR AUTHOR'S ORGANIZ ATION 12/27/2022 [facility] DATE CREATED AUTHOR AUTHOR'S ORGANIZ ATION 06/12/2023 [facility] DATE CREATED AUTHOR AUTHOR'S ORGANIZ ATION 04/21/2025 [facility] DATE CREATED AUTHOR AUTHOR'S ORGANIZ ATION 07/06/2025 [facility] DATE CREATED AUTHOR AUTHOR'S ORGANIZ ATION 07/10/2025 [facility] Source Comments (unrecognize d section and content) In the event this informatio n is protected by the Federal Confidentiality of Alcohol and Drug Abuse Patient Records regulations: The Federal rules restrict any use of the information to criminally investigate or prosecute any alcohol or drug abuse patient.[facility] HospitalIn the event this information is protected by the Federal Confidentiality of Alcohol and Drug Abuse Patient Records regulations: The Federal rules restrict any use of the information to criminally investigate or prosecute any alcohol or drug abuse patient.[facility] HospitalIn the event this information is protected by the Federal Confidentiality of Alcohol and Drug Abuse Patient Records regulations: The Federal rules restrict any use of the information to criminally investigate or prosecute any alcohol or drug abuse patient.[facility] HospitalIn the event this information is protected by the Federal Confidentiality of Alcohol and Drug Abuse Patient Records regulations: The Federal rules restrict any use of the information to criminally investigate or prosecute any alcohol or drug abuse patient.[facility] HospitalIn the event this information is protected by the Federal Confidentiality of Alcohol and Drug Abuse Patient Records regulations: The Federal rules restrict any use of the information to criminally investigate or prosecute any alcohol or drug abuse patient.[facility] HospitalIn the event this information is protected by the Federal Confidentiality of Alcohol and Drug Abuse Patient Records regulations: The Federal rules restrict any use of the information to criminally investigate or prosecute any alcohol or drug abuse patient.[facility] HospitalIn the event this information is protected by the Federal Confidentiality of Alcohol and Drug Abuse Patient Records regulations: The Federal rules restrict any use of the information to criminally investigate or prosecute any alcohol or drug abuse patient.[facility] HospitalIn the event this information is protected by the Federal Confidentiality of Alcohol and Drug Abuse Patient Records regulations: The Federal rules restrict any use of the information to criminally investigate or prosecute any alcohol or drug abuse patient.[facility] HospitalIn the event this information is protected by the Federal Confidentiality of Alcohol and Drug Abuse Patient Records regulations: The Federal rules restrict any use of the information to criminally investigate or prosecute any alcohol or drug abuse patient.[facility] HospitalIn the event this information is protected by the Federal Confidentiality of Alcohol and Drug Abuse Patient Records regulations: The Federal rules restrict any use of the information to criminally investigate or prosecute any alcohol or drug abuse patient.[facility] HospitalIn the event this information is protected by the Federal Confidentiality of Alcohol and Drug Abuse Patient Records regulations: The Federal rules restrict any use of the information to criminally investigate or prosecute any alcohol or drug abuse patient.[facility] HospitalIn the event this information is protected by the Federal Confidentiality of Alcohol and Drug Abuse Patient Records regulations: The Federal rules restrict any use of the information to criminally investigate or prosecute any alcohol or drug abuse patient.[facility] HospitalIn the event this information is protected by the Federal Confidentiality of Alcohol and Drug Abuse Patient Records regulations: The Federal rules restrict any use of the information to criminally investigate or prosecute any alcohol or drug abuse patient.[facility] HospitalIn the event this information is protected by the Federal Confidentiality of Alcohol and Drug Abuse Patient Records regulations: The Federal rules restrict any use of the information to criminally investigate or prosecute any alcohol or drug abuse patient.[facility] HospitalIn the event this information is protected by the Federal Confidentiality of Alcohol and Drug Abuse Patient Records regulations: The Federal rules restrict any use of the information to criminally investigate or prosecute any alcohol or drug abuse patient.[facility] HospitalIn the event this information is protected by the Federal Confidentiality of Alcohol and Drug Abuse Patient Records regulations: The Federal rules restrict any use of the information to criminally investigate or prosecute any alcohol or drug abuse patient.[facility] HospitalIn the event this information is protected by the Federal Confidentiality of Alcohol and Drug Abuse Patient Records regulations: The Federal rules restrict any use of the information to criminally investigate or prosecute any alcohol or drug abuse patient.[facility] HospitalIn the event this information is protected by the Federal Confidentiality of Alcohol and Drug Abuse Patient Records regulations: The Federal rules restrict any use of the information to criminally investigate or prosecute any alcohol or drug abuse patient.[facility] HospitalIn the event this information is protected by the Federal Confidentiality of Alcohol and Drug Abuse Patient Records regulations: The Federal rules restrict any use of the information to criminally investigate or prosecute any alcohol or drug abuse patient.[facility] HospitalIn the event this information is protected by the Federal Confidentiality of Alcohol and Drug Abuse Patient Records regulations: The Federal rules restrict any use of the information to criminally investigate or prosecute any alcohol or drug abuse patient.[facility] HospitalIn the event this information is protected by the Federal Confidentiality of Alcohol and Drug Abuse Patient Records regulations: The Federal rules restrict any use of the information to criminally investigate or prosecute any alcohol or drug abuse patient.[facility] HospitalIn the event this information is protected by the Federal Confidentiality of Alcohol and Drug Abuse Patient Records regulations: The Federal rules restrict any use of the information to criminally investigate or prosecute any alcohol or drug abuse patient.[facility] HospitalIn the event this information is protected by the Federal Confidentiality of Alcohol and Drug Abuse Patient Records regulations: The Federal rules restrict any use of the information to criminally investigate or prosecute any alcohol or drug abuse patient.[facility] HospitalIn the event this information is protected by the Federal Confidentiality of Alcohol and Drug Abuse Patient Records regulations: The Federal rules restrict any use of the information to criminally investigate or prosecute any alcohol or drug abuse patient.[facility] HospitalIn the event this information is protected by the Federal Confidentiality of Alcohol and Drug Abuse Patient Records regulations: The Federal rules restrict any use of the information to criminally investigate or prosecute any alcohol or drug abuse patient.[facility] HospitalIn the event this information is protected by the Federal Confidentiality of Alcohol and Drug Abuse Patient Records regulations: The Federal rules restrict any use of the information to criminally investigate or prosecute any alcohol or drug abuse patient.[facility] HospitalIn the event this information is protected by the Federal Confidentiality of Alcohol and Drug Abuse Patient Records regulations: The Federal rules restrict any use of the information to criminally investigate or prosecute any alcohol or drug abuse patient.[facility] HospitalIn the event this information is protected by the Federal Confidentiality of Alcohol and Drug Abuse Patient Records regulations: The Federal rules restrict any use of the information to criminally investigate or prosecute any alcohol or drug abuse patient.[facility] HospitalIn the event this information is protected by the Federal Confidentiality of Alcohol and Drug Abuse Patient Records regulations: The Federal rules restrict any use of the information to criminally investigate or prosecute any alcohol or drug abuse patient.[facility] HospitalIn the event this information is protected by the Federal Confidentiality of Alcohol and Drug Abuse Patient Records regulations: The Federal rules restrict any use of the information to criminally investigate or prosecute any alcohol or drug abuse patient.[facility] HospitalIn the event this information is protected by the Federal Confidentiality of Alcohol and Drug Abuse Patient Records regulations: The Federal rules restrict any use of the information to criminally investigate or prosecute any alcohol or drug abuse patient.[facility] HospitalIn the event this information is protected by the Federal Confidentiality of Alcohol and Drug Abuse Patient Records regulations: The Federal rules restrict any use of the information to criminally investigate or prosecute any alcohol or drug abuse patient.[facility] HospitalIn the event this information is protected by the Federal Confidentiality of Alcohol and Drug Abuse Patient Records regulations: The Federal rules restrict any use of the information to criminally investigate or prosecute any alcohol or drug abuse patient.[facility] HospitalIn the event this information is protected by the Federal Confidentiality of Alcohol and Drug Abuse Patient Records regulations: The Federal rules restrict any use of the information to criminally investigate or prosecute any alcohol or drug abuse patient.[facility] HospitalIn the event this information is protected by the Federal Confidentiality of Alcohol and Drug Abuse Patient Records regulations: The Federal rules restrict any use of the information to criminally investigate or prosecute any alcohol or drug abuse patient.[facility] HospitalIn the event this information is protected by the Federal Confidentiality of Alcohol and Drug Abuse Patient Records regulations: The Federal rules restrict any use of the information to criminally investigate or prosecute any alcohol or drug abuse patient.[facility] HospitalIn the event this information is protected by the Federal Confidentiality of Alcohol and Drug Abuse Patient Records regulations: The Federal rules restrict any use of the information to criminally investigate or prosecute any alcohol or drug abuse patient.[facility] HospitalIn the event this information is protected by the Federal Confidentiality of Alcohol and Drug Abuse Patient Records regulations: The Federal rules restrict any use of the information to criminally investigate or prosecute any alcohol or drug abuse patient.[facility]In the event this information is protected by the Federal Confidentiality of Alcohol and Drug Abuse Patient Records regulations: The Federal rules restrict any use of the information to criminally investigate or prosecute any alcohol or drug abuse patient.[facility] HospitalIn the event this information is protected by the Federal Confidentiality of Alcohol and Drug Abuse Patient Records regulations: The Federal rules restrict any use of the information to criminally investigate or prosecute any alcohol or drug abuse patient.[facility] HospitalIn the event this information is protected by the Federal Confidentiality of Alcohol and Drug Abuse Patient Records regulations: The Federal rules restrict any use of the information to criminally investigate or prosecute any alcohol or drug abuse patient.[facility] HospitalIn the event this information is protected by the Federal Confidentiality of Alcohol and Drug Abuse Patient Records regulations: The Federal rules restrict any use of the information to criminally investigate or prosecute any alcohol or drug abuse patient.[facility] HospitalIn the event this information is protected by the Federal Confidentiality of Alcohol and Drug Abuse Patient Records regulations: The Federal rules restrict any use of the information to criminally investigate or prosecute any alcohol or drug abuse patient.[facility] HospitalIn the event this information is protected by the Federal Confidentiality of Alcohol and Drug Abuse Patient Records regulations: The Federal rules restrict any use of the information to criminally investigate or prosecute any alcohol or drug abuse patient.[facility] HospitalIn the event this information is protected by the Federal Confidentiality of Alcohol and Drug Abuse Patient Records regulations: The Federal rules restrict any use of the information to criminally investigate or prosecute any alcohol or drug abuse patient.[facility] HospitalIn the event this information is protected by the Federal Confidentiality of Alcohol and Drug Abuse Patient Records regulations: The Federal rules restrict any use of the information to criminally investigate or prosecute any alcohol or drug abuse patient.[facility] HospitalIn the event this information is protected by the Federal Confidentiality of Alcohol and Drug Abuse Patient Records regulations: The Federal rules restrict any use of the information to criminally investigate or prosecute any alcohol or drug abuse patient.[facility] HospitalIn the event this information is protected by the Federal Confidentiality of Alcohol and Drug Abuse Patient Records regulations: The Federal rules restrict any use of the information to criminally investigate or prosecute any alcohol or drug abuse patient.[facility] HospitalIn the event this information is protected by the Federal Confidentiality of Alcohol and Drug Abuse Patient Records regulations: The Federal rules restrict any use of the information to criminally investigate or prosecute any alcohol or drug abuse patient.[facility] HospitalIn the event this information is protected by the Federal Confidentiality of Alcohol and Drug Abuse Patient Records regulations: The Federal rules restrict any use of the information to criminally investigate or prosecute any alcohol or drug abuse patient.[facility] HospitalIn the event this information is protected by the Federal Confidentiality of Alcohol and Drug Abuse Patient Records regulations: The Federal rules restrict any use of the information to criminally investigate or prosecute any alcohol or drug abuse patient.[facility] HospitalIn the event this information is protected by the Federal Confidentiality of Alcohol and Drug Abuse Patient Records regulations: The Federal rules restrict any use of the information to criminally investigate or prosecute any alcohol or drug abuse patient.[facility] HospitalIn the event this information is protected by the Federal Confidentiality of Alcohol and Drug Abuse Patient Records regulations: The Federal rules restrict any use of the information to criminally investigate or prosecute any alcohol or drug abuse patient.[facility] HospitalIn the event this information is protected by the Federal Confidentiality of Alcohol and Drug Abuse Patient Records regulations: The Federal rules restrict any use of the information to criminally investigate or prosecute any alcohol or drug abuse patient.[facility] HospitalIn the event this information is protected by the Federal Confidentiality of Alcohol and Drug Abuse Patient Records regulations: The Federal rules restrict any use of the information to criminally investigate or prosecute any alcohol or drug abuse patient.[facility] HospitalIn the event this information is protected by the Federal Confidentiality of Alcohol and Drug Abuse Patient Records regulations: The Federal rules restrict any use of the information to criminally investigate or prosecute any alcohol or drug abuse patient.[facility] HospitalIn the event this information is protected by the Federal Confidentiality of Alcohol and Drug Abuse Patient Records regulations: The Federal rules restrict any use of the information to criminally investigate or prosecute any alcohol or drug abuse patient.[facility] HospitalIn the event this information is protected by the Federal Confidentiality of Alcohol and Drug Abuse Patient Records regulations: The Federal rules restrict any use of the information to criminally investigate or prosecute any alcohol or drug abuse patient.[facility] HospitalIn the event this information is protected by the Federal Confidentiality of Alcohol and Drug Abuse Patient Records regulations: The Federal rules restrict any use of the information to criminally investigate or prosecute any alcohol or drug abuse patient.[facility] HospitalIn the event this information is protected by the Federal Confidentiality of Alcohol and Drug Abuse Patient Records regulations: The Federal rules restrict any use of the information to criminally investigate or prosecute any alcohol or drug abuse patient.[facility] HospitalIn the event this information is protected by the Federal Confidentiality of Alcohol and Drug Abuse Patient Records regulations: The Federal rules restrict any use of the information to criminally investigate or prosecute any alcohol or drug abuse patient.[facility] HospitalIn the event this information is protected by the Federal Confidentiality of Alcohol and Drug Abuse Patient Records regulations: The Federal rules restrict any use of the information to criminally investigate or prosecute any alcohol or drug abuse patient.[facility] HospitalIn the event this information is protected by the Federal Confidentiality of Alcohol and Drug Abuse Patient Records regulations: The Federal rules restrict any use of the information to criminally investigate or prosecute any alcohol or drug abuse patient.[facility] HospitalIn the event this information is protected by the Federal Confidentiality of Alcohol and Drug Abuse Patient Records regulations: The Federal rules restrict any use of the information to criminally investigate or prosecute any alcohol or drug abuse patient.[facility] HospitalIn the event this information is protected by the Federal Confidentiality of Alcohol and Drug Abuse Patient Records regulations: The Federal rules restrict any use of the information to criminally investigate or prosecute any alcohol or drug abuse patient.[facility] HospitalIn the event this information is protected by the Federal Confidentiality of Alcohol and Drug Abuse Patient Records regulations: The Federal rules restrict any use of the information to criminally investigate or prosecute any alcohol or drug abuse patient.[facility] HospitalIn the event this information is protected by the Federal Confidentiality of Alcohol and Drug Abuse Patient Records regulations: The Federal rules restrict any use of the information to criminally investigate or prosecute any alcohol or drug abuse patient.[facility] HospitalIn the event this information is protected by the Federal Confidentiality of Alcohol and Drug Abuse Patient Records regulations: The Federal rules restrict any use of the information to criminally investigate or prosecute any alcohol or drug abuse patient.[facility] HospitalIn the event this information is protected by the Federal Confidentiality of Alcohol and Drug Abuse Patient Records regulations: The Federal rules restrict any use of the information to criminally investigate or prosecute any alcohol or drug abuse patient.[facility] HospitalIn the event this information is protected by the Federal Confidentiality of Alcohol and Drug Abuse Patient Records regulations: The Federal rules restrict any use of the information to criminally investigate or prosecute any alcohol or drug abuse patient.[facility] HospitalIn the event this information is protected by the Federal Confidentiality of Alcohol and Drug Abuse Patient Records regulations: The Federal rules restrict any use of the information to criminally investigate or prosecute any alcohol or drug abuse patient.[facility] HospitalIn the event this information is protected by the Federal Confidentiality of Alcohol and Drug Abuse Patient Records regulations: The Federal rules restrict any use of the information to criminally investigate or prosecute any alcohol or drug abuse patient.[facility] HospitalIn the event this information is protected by the Federal Confidentiality of Alcohol and Drug Abuse Patient Records regulations: The Federal rules restrict any use of the information to criminally investigate or prosecute any alcohol or drug abuse patient.[facility] HospitalIn the event this information is protected by the Federal Confidentiality of Alcohol and Drug Abuse Patient Records regulations: The Federal rules restrict any use of the information to criminally investigate or prosecute any alcohol or drug abuse patient.[facility] HospitalIn the event this information is protected by the Federal Confidentiality of Alcohol and Drug Abuse Patient Records regulations: The Federal rules restrict any use of the information to criminally investigate or prosecute any alcohol or drug abuse patient.[facility] HospitalIn the event this information is protected by the Federal Confidentiality of Alcohol and Drug Abuse Patient Records regulations: The Federal rules restrict any use of the information to criminally investigate or prosecute any alcohol or drug abuse patient.[facility] HospitalIn the event this information is protected by the Federal Confidentiality of Alcohol and Drug Abuse Patient Records regulations: The Federal rules restrict any use of the information to criminally investigate or prosecute any alcohol or drug abuse patient.[facility] HospitalIn the event this information is protected by the Federal Confidentiality of Alcohol and Drug Abuse Patient Records regulations: The Federal rules restrict any use of the information to criminally investigate or prosecute any alcohol or drug abuse patient.[facility] HospitalIn the event this information is protected by the Federal Confidentiality of Alcohol and Drug Abuse Patient Records regulations: The Federal rules restrict any use of the information to criminally investigate or prosecute any alcohol or drug abuse patient.[facility] HospitalIn the event this information is protected by the Federal Confidentiality of Alcohol and Drug Abuse Patient Records regulations: The Federal rules restrict any use of the information to criminally investigate or prosecute any alcohol or drug abuse patient.[facility] HospitalIn the event this information is protected by the Federal Confidentiality of Alcohol and Drug Abuse Patient Records regulations: The Federal rules restrict any use of the information to criminally investigate or prosecute any alcohol or drug abuse patient.[facility] HospitalIn the event this information is protected by the Federal Confidentiality of Alcohol and Drug Abuse Patient Records regulations: The Federal rules restrict any use of the information to criminally investigate or prosecute any alcohol or drug abuse patient.[facility] HospitalIn the event this information is protected by the Federal Confidentiality of Alcohol and Drug Abuse Patient Records regulations: The Federal rules restrict any use of the information to criminally investigate or prosecute any alcohol or drug abuse patient.[facility] HospitalIn the event this information is protected by the Federal Confidentiality of Alcohol and Drug Abuse Patient Records regulations: The Federal rules restrict any use of the information to criminally investigate or prosecute any alcohol or drug abuse patient.[facility] HospitalIn the event this information is protected by the Federal Confidentiality of Alcohol and Drug Abuse Patient Records regulations: The Federal rules restrict any use of the information to criminally investigate or prosecute any alcohol or drug abuse patient.[facility] HospitalIn the event this information is protected by the Federal Confidentiality of Alcohol and Drug Abuse Patient Records regulations: The Federal rules restrict any use of the information to criminally investigate or prosecute any alcohol or drug abuse patient.[facility] HospitalIn the event this information is protected by the Federal Confidentiality of Alcohol and Drug Abuse Patient Records regulations: The Federal rules restrict any use of the information to criminally investigate or prosecute any alcohol or drug abuse patient.[facility] HospitalIn the event this information is protected by the Federal Confidentiality of Alcohol and Drug Abuse Patient Records regulations: The Federal rules restrict any use of the information to criminally investigate or prosecute any alcohol or drug abuse patient.[facility] HospitalIn the event this information is protected by the Federal Confidentiality of Alcohol and Drug Abuse Patient Records regulations: The Federal rules restrict any use of the information to criminally investigate or prosecute any alcohol or drug abuse patient.[facility] HospitalIn the event this information is protected by the Federal Confidentiality of Alcohol and Drug Abuse Patient Records regulations: The Federal rules restrict any use of the information to criminally investigate or prosecute any alcohol or drug abuse patient.[facility] HospitalIn the event this information is protected by the Federal Confidentiality of Alcohol and Drug Abuse Patient Records regulations: The Federal rules restrict any use of the information to criminally investigate or prosecute any alcohol or drug abuse patient.[facility] HospitalIn the event this information is protected by the Federal Confidentiality of Alcohol and Drug Abuse Patient Records regulations: The Federal rules restrict any use of the information to criminally investigate or prosecute any alcohol or drug abuse patient.[facility] HospitalIn the event this information is protected by the Federal Confidentiality of Alcohol and Drug Abuse Patient Records regulations: The Federal rules restrict any use of the information to criminally investigate or prosecute any alcohol or drug abuse patient.[facility] HospitalIn the event this information is protected by the Federal Confidentiality of Alcohol and Drug Abuse Patient Records regulations: The Federal rules restrict any use of the information to criminally investigate or prosecute any alcohol or drug abuse patient.[facility] HospitalIn the event this information is protected by the Federal Confidentiality of Alcohol and Drug Abuse Patient Records regulations: The Federal rules restrict any use of the information to criminally investigate or prosecute any alcohol or drug abuse patient.[facility] HospitalIn the event this information is protected by the Federal Confidentiality of Alcohol and Drug Abuse Patient Records regulations: The Federal rules restrict any use of the information to criminally investigate or prosecute any alcohol or drug abuse patient.[facility] HospitalIn the event this information is protected by the Federal Confidentiality of Alcohol and Drug Abuse Patient Records regulations: The Federal rules restrict any use of the information to criminally investigate or prosecute any alcohol or drug abuse patient.[facility] HospitalIn the event this information is protected by the Federal Confidentiality of Alcohol and Drug Abuse Patient Records regulations: The Federal rules restrict any use of the information to criminally investigate or prosecute any alcohol or drug abuse patient.[facility] HospitalIn the event this information is protected by the Federal Confidentiality of Alcohol and Drug Abuse Patient Records regulations: The Federal rules restrict any use of the information to criminally investigate or prosecute any alcohol or drug abuse patient.[facility] HospitalIn the event this information is protected by the Federal Confidentiality of Alcohol and Drug Abuse Patient Records regulations: The Federal rules restrict any use of the information to criminally investigate or prosecute any alcohol or drug abuse patient.[facility] HospitalIn the event this information is protected by the Federal Confidentiality of Alcohol and Drug Abuse Patient Records regulations: The Federal rules restrict any use of the information to criminally investigate or prosecute any alcohol or drug abuse patient.[facility] HospitalIn the event this information is protected by the Federal Confidentiality of Alcohol and Drug Abuse Patient Records regulations: The Federal rules restrict any use of the information to criminally investigate or prosecute any alcohol or drug abuse patient.[facility] HospitalIn the event this information is protected by the Federal Confidentiality of Alcohol and Drug Abuse Patient Records regulations: The Federal rules restrict any use of the information to criminally investigate or prosecute any alcohol or drug abuse patient.[facility] HospitalIn the event this information is protected by the Federal Confidentiality of Alcohol and Drug Abuse Patient Records regulations: The Federal rules restrict any use of the information to criminally investigate or prosecute any alcohol or drug abuse patient.[facility] HospitalIn the event this information is protected by the Federal Confidentiality of Alcohol and Drug Abuse Patient Records regulations: The Federal rules restrict any use of the information to criminally investigate or prosecute any alcohol or drug abuse patient.[facility] HospitalIn the event this information is protected by the Federal Confidentiality of Alcohol and Drug Abuse Patient Records regulations: The Federal rules restrict any use of the information to criminally investigate or prosecute any alcohol or drug abuse patient.[facility] HospitalIn the event this information is protected by the Federal Confidentiality of Alcohol and Drug Abuse Patient Records regulations: The Federal rules restrict any use of the information to criminally investigate or prosecute any alcohol or drug abuse patient.[facility] HospitalIn the event this information is protected by the Federal Confidentiality of Alcohol and Drug Abuse Patient Records regulations: The Federal rules restrict any use of the information to criminally investigate or prosecute any alcohol or drug abuse patient.[facility] HospitalIn the event this information is protected by the Federal Confidentiality of Alcohol and Drug Abuse Patient Records regulations: The Federal rules restrict any use of the information to criminally investigate or prosecute any alcohol or drug abuse patient.[facility] HospitalIn the event this information is protected by the Federal Confidentiality of Alcohol and Drug Abuse Patient Records regulations: The Federal rules restrict any use of the information to criminally investigate or prosecute any alcohol or drug abuse patient.[facility] HospitalIn the event this information is protected by the Federal Confidentiality of Alcohol and Drug Abuse Patient Records regulations: The Federal rules restrict any use of the information to criminally investigate or prosecute any alcohol or drug abuse patient.[facility] HospitalIn the event this information is protected by the Federal Confidentiality of Alcohol and Drug Abuse Patient Records regulations: The Federal rules restrict any use of the information to criminally investigate or prosecute any alcohol or drug abuse patient.[facility] HospitalIn the event this information is protected by the Federal Confidentiality of Alcohol and Drug Abuse Patient Records regulations: The Federal rules restrict any use of the information to criminally investigate or prosecute any alcohol or drug abuse patient.[facility] HospitalIn the event this information is protected by the Federal Confidentiality of Alcohol and Drug Abuse Patient Records regulations: The Federal rules restrict any use of the information to criminally investigate or prosecute any alcohol or drug abuse patient.[facility] HospitalIn the event this information is protected by the Federal Confidentiality of Alcohol and Drug Abuse Patient Records regulations: The Federal rules restrict any use of the information to criminally investigate or prosecute any alcohol or drug abuse patient.[facility] HospitalIn the event this information is protected by the Federal Confidentiality of Alcohol and Drug Abuse Patient Records regulations: The Federal rules restrict any use of the information to criminally investigate or prosecute any alcohol or drug abuse patient.[facility] HospitalIn the event this information is protected by the Federal Confidentiality of Alcohol and Drug Abuse Patient Records regulations: The Federal rules restrict any use of the information to criminally investigate or prosecute any alcohol or drug abuse patient.[facility] HospitalIn the event this information is protected by the Federal Confidentiality of Alcohol and Drug Abuse Patient Records regulations: The Federal rules restrict any use of the information to criminally investigate or prosecute any alcohol or drug abuse patient.[facility] HospitalIn the event this information is protected by the Federal Confidentiality of Alcohol and Drug Abuse Patient Records regulations: The Federal rules restrict any use of the information to criminally investigate or prosecute any alcohol or drug abuse patient.[facility] HospitalIn the event this information is protected by the Federal Confidentiality of Alcohol and Drug Abuse Patient Records regulations: The Federal rules restrict any use of the information to criminally investigate or prosecute any alcohol or drug abuse patient.[facility] HospitalIn the event this information is protected by the Federal Confidentiality of Alcohol and Drug Abuse Patient Records regulations: The Federal rules restrict any use of the information to criminally investigate or prosecute any alcohol or drug abuse patient.[facility] HospitalIn the event this information is protected by the Federal Confidentiality of Alcohol and Drug Abuse Patient Records regulations: The Federal rules restrict any use of the information to criminally investigate or prosecute any alcohol or drug abuse patient.[facility] HospitalIn the event this information is protected by the Federal Confidentiality of Alcohol and Drug Abuse Patient Records regulations: The Federal rules restrict any use of the information to criminally investigate or prosecute any alcohol or drug abuse patient.[facility] HospitalIn the event this information is protected by the Federal Confidentiality of Alcohol and Drug Abuse Patient Records regulations: The Federal rules restrict any use of the information to criminally investigate or prosecute any alcohol or drug abuse patient.[facility] HospitalIn the event this information is protected by the Federal Confidentiality of Alcohol and Drug Abuse Patient Records regulations: The Federal rules restrict any use of the information to criminally investigate or prosecute any alcohol or drug abuse patient.[facility] HospitalIn the event this information is protected by the Federal Confidentiality of Alcohol and Drug Abuse Patient Records regulations: The Federal rules restrict any use of the information to criminally investigate or prosecute any alcohol or drug abuse patient.[facility] HospitalIn the event this information is protected by the Federal Confidentiality of Alcohol and Drug Abuse Patient Records regulations: The Federal rules restrict any use of the information to criminally investigate or prosecute any alcohol or drug abuse patient.[facility] HospitalIn the event this information is protected by the Federal Confidentiality of Alcohol and Drug Abuse Patient Records regulations: The Federal rules restrict any use of the information to criminally investigate or prosecute any alcohol or drug abuse patient.[facility] HospitalIn the event this information is protected by the Federal Confidentiality of Alcohol and Drug Abuse Patient Records regulations: The Federal rules restrict any use of the information to criminally investigate or prosecute any alcohol or drug abuse patient.[facility] HospitalIn the event this information is protected by the Federal Confidentiality of Alcohol and Drug Abuse Patient Records regulations: The Federal rules restrict any use of the information to criminally investigate or prosecute any alcohol or drug abuse patient.[facility] HospitalIn the event this information is protected by the Federal Confidentiality of Alcohol and Drug Abuse Patient Records regulations: The Federal rules restrict any use of the information to criminally investigate or prosecute any alcohol or drug abuse patient.[facility] HospitalIn the event this information is protected by the Federal Confidentiality of Alcohol and Drug Abuse Patient Records regulations: The Federal rules restrict any use of the information to criminally investigate or prosecute any alcohol or drug abuse patient.[facility] HospitalIn the event this information is protected by the Federal Confidentiality of Alcohol and Drug Abuse Patient Records regulations: The Federal rules restrict any use of the information to criminally investigate or prosecute any alcohol or drug abuse patient.[facility] HospitalIn the event this information is protected by the Federal Confidentiality of Alcohol and Drug Abuse Patient Records regulations: The Federal rules restrict any use of the information to criminally investigate or prosecute any alcohol or drug abuse patient.[facility] HospitalIn the event this information is protected by the Federal Confidentiality of Alcohol and Drug Abuse Patient Records regulations: The Federal rules restrict any use of the information to criminally investigate or prosecute any alcohol or drug abuse patient.[facility] HospitalIn the event this information is protected by the Federal Confidentiality of Alcohol and Drug Abuse Patient Records regulations: The Federal rules restrict any use of the information to criminally investigate or prosecute any alcohol or drug abuse patient.[facility] HospitalIn the event this information is protected by the Federal Confidentiality of Alcohol and Drug Abuse Patient Records regulations: The Federal rules restrict any use of the information to criminally investigate or prosecute any alcohol or drug abuse patient.[facility] HospitalIn the event this information is protected by the Federal Confidentiality of Alcohol and Drug Abuse Patient Records regulations: The Federal rules restrict any use of the information to criminally investigate or prosecute any alcohol or drug abuse patient.[facility] HospitalIn the event this information is protected by the Federal Confidentiality of Alcohol and Drug Abuse Patient Records regulations: The Federal rules restrict any use of the information to criminally investigate or prosecute any alcohol or drug abuse patient.[facility] HospitalIn the event this information is protected by the Federal Confidentiality of Alcohol and Drug Abuse Patient Records regulations: The Federal rules restrict any use of the information to criminally investigate or prosecute any alcohol or drug abuse patient.[facility] HospitalIn the event this information is protected by the Federal Confidentiality of Alcohol and Drug Abuse Patient Records regulations: The Federal rules restrict any use of the information to criminally investigate or prosecute any alcohol or drug abuse patient.[facility] Reason for Visit (unrecogniz ed section and content) Reason Comments cellulitis OD Specialty Diagnoses / Procedures Referred By Contac t Referred To Contact Emergency Medicine Diagnoses Orbital cellulitis on right [place] [address] Phone: [phone] [employer] [place] [address] Phone: [phone] Referral ID Status Reason Start Date Expiration Date Visits Re quested Visits Authorized [id number] 3 Reason Comments Refill Request Reason [...] ABDOMINAL REAL TIME W/IMAGE LIMITED Soila Easton APRN.LEGAL EXECUTIVE ASSISTANT [address] [place] [address] Us Imaging Referral ID Status Reason Start Date Expiration Date V isits Requested Visits Authorized [id number] Closed Auto-Generate d Referral 04/17/2022 05/17/2023 1 1 Reason Onset Date Comments Refill Request 05/22/2022 Reason Comments Alcohol induced chronic pancreatitis Alc oholic hepatitis w/o ascites Specialty Diagnoses / Procedures Referred By Contac t Referred To Contact Gastroenterology Diagnoses Alcohol-induced chronic pancreatitis (HCC) Alcoholic hepatitis without ascites Procedures CONSULT TO GASTROENTEROLOGY OFFICE/OUTPATIENT NEW HIGH MDM 60-74 MINUTES Soila Easton APRN.CNP [address] [place] [address] Referral ID Status Reason Start Date Expiration Date V isits Requested Visits Authorized [id number] Closed PCP Requested Referral 04/17/2022 04/17/2023 1 1 Reason Onset Date Comments Refill Request 06/13/2022 Reason Onset Date Comments Recheck 3 month follow u p Immunizations 07/18/2022 Flu vaccination Reason Comments Recheck [facility] ER follow up, SO B, [...] extremities Procedures CONSULT TO NEUROLOGY OFFICE/OUTPATIENT NEW [facility] MDM 60-74 MINUTES Misbah Elkins MD [address] [place] [address] Referral ID Status Reason Start Date Expiration Date V isits Requested Visits Authorized [id number] Closed PCP Requested Referral 11/25/2022 11/25/2023 1 [...] Referred By Travis melendez Referred To Contact CT IMAGING Diagnoses Alcoholic hepatitis without ascites Acute pancreatitis, unspecified complication status, unspecified pancreatitis type Upper abdominal pain Nausea Elevated lipase Generalized abdominal tenderness without rebound tenderness Procedures CT ABD/PEL W IVCON CT ABD & PELVIS W/CONTRAST Soila Easton, UNA.LEGAL EXECUTIVE ASSISTANT [address] [place] [address] [place] [address] Referral ID Status Reason Start Date Expiration Date V isits Requested Visits Authorized [id number] Closed Auto-Generate d Referral 08/15/2024 10/14/2024 1 1 Specialty Diagnoses / Procedures Referred By Travis Referred To Contact CT IMAGING Diagnoses Alcoholic hepatitis without ascites Acute pancreatitis, unspecified complication status, unspecified pancreatitis type Upper abdominal pain Nausea Elevated lipase Generalized abdominal tenderness without rebound tenderness Procedures CT ABD/PEL W IVCON CT ABD & PELVIS W/CONTRAST Soila Easton, UNA.LEGAL EXECUTIVE ASSISTANT [address] [place] [address] [place] [address] Reason Onset Date Comments Refill Request 10/28/2024 Reason Comments New Patient Chronic recurrent pa ncreatitis (HCC) [K86.1]; 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] Specialty Diagnoses / Procedures Referred By Contac t Referred To Contact Gastroenterology Diagnoses Chronic recurrent pancreatitis (HCC) Alcohol-induced chronic pancreatitis (HCC) Procedures CONSULT TO GASTROENTEROLOGY OFFICE/OUTPATIENT [facility] MDM 60 MINUTES Soila Easton APRN.LEGAL EXECUTIVE ASSISTANT [address] [place] [address] Referral ID Status Reason Start Date Expiration Date V isits Requested Visits Authorized [id number] Closed PCP Requested Referral 09/02/2024 09/02/2025 1 [...] Comments 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 Reason Comments Orders Reason Comments Patient Update Symptoms after ERCP Reason Comments Critical Care Transport Reason Onset Date Comments Refill Request 03/21/2025 Reason Comments Transition Of Care RC f/u discharge LVM Reason Comments Transition Of Care Reason Comments Transition Of Care Left V/m Reason Comments Appointment Reason Comments Hospital F/U Reason Comments Hospital F/U [facility] 04/15/25-04/19/25 Reason Comments Pain medication Reason Onset Date Comments Refill Request 05/16/2025 Reason Onset Date Comments Refill Request 05/17/2025 Reason Comments Recheck 1 month follow up Reason Comments Refill Request Care Teams (unrecognized sec tion and content) Team Status: Active Member Role Status Dates Dr. Misbah Elkins MD Primary Care Provider Active Team Status: Inactive Member Role Status Dates Dr. Misbah Elkins MD Primary Care Provider Active Start: November 24, 2024 End: November 24, 2024 Ani Eduardo MINI LAB OPERATOR, MINI LAB OPERATOR-C Attending Provider Active Start: November 24, 2024 End: November 24, 2024 Ani Eduardo MINI LAB OPERATOR, MINI LAB OPERATOR-C Referring Provider Active Start: November 24, 2024 [...] t: December 04, 2024 Dr. Gonzalo Sebastian , Other Provider [...] Start : December 05, 2024 Dr. Jackson rBitt MD Other Provider Active Sta rt: December [...] 06, 2024 Dr. Aleta Aguayo , DO Admit [...] S tart: December 06, 2024 Dr. Rajni Avlaos MD Other Provider Active Start: December 06, [...] : December 06, 2024 Dr. Aleta Aguayo Other Provider Active Start : December 06, 2024 Dr. Yrn Kahn , Attending Provider Active Start: December 06, 2024 Dr. Yrn Kahn , Other Provider Active S tart: December 06, 2024 Dr. Elton Abraham MD Other Provider Active Start: December 06, 2024 Dr. Ryan Ortega MD Other Provider Active Start: December 06, 2024 Dr. Freddie Perdue MD Other Provider Active Star t: December 06, 2024 Dr. Gonzalo Sebastian , Other Provider [...] Provider Active Sta rt: December 07, 2024 Hip Hop Artist Relationship Specialty Start Date End Date Misbah Elkins MD [address] [facility] [place] [address] PCP - General Internal Medicine 03/26/21 Hip Hop Artist Relationship Specialty Start Date End Date Misbah Elkins MD [address] [facility] [place] [address] PCP - General Internal Medicine 03/26/21 Hip Hop Artist Relationship Specialty Start Date End Date Misbah Elkins MD [address] [facility] [place] [address] PCP - General Internal Medicine 03/26/21 Hip Hop Artist Relationship Specialty Start Date End Date Misbah Elkins MD [address] [facility] [place] [address] PCP - General Internal Medicine 03/26/21 Hip Hop Artist Relationship Specialty Start Date End Date Misbah Elkins MD [address] [facility] [place] [address] PCP - General Internal Medicine 03/26/21 Hip Hop Artist Relationship Specialty Start Date End Date Misbah Elkins MD [address] [facility] [place] [address] PCP - General Internal Medicine 03/26/21 Hip Hop Artist Relationship Specialty Start Date End Date Misbah Elkins MD [address] [facility] [place] [address] PCP - General Internal Medicine 03/26/21 Hip Hop Artist Relationship Specialty Start Date End Date Misbah Elkins MD [address] [facility] [place] [address] PCP - General Internal Medicine 03/26/21 Hip Hop Artist Relationship Specialty Start Date End Date Misbah Elkins MD [address] [facility] [place] [address] PCP - General Internal Medicine 03/26/21 Hip Hop Artist Relationship Specialty Start Date End Date Misbah Elkins MD [address] [facility] [place] [address] PCP - General Internal Medicine 03/26/21 Hip Hop Artist Relationship Specialty Start Date End Date Misbah Elkins MD [address] [facility] [place] [address] PCP - General Internal Medicine 03/26/21 Hip Hop Artist Relationship Specialty Start Date End Date Misbah Elkins MD [address] [facility] [place] [address] PCP - General Internal Medicine 03/26/21 Hip Hop Artist Relationship Specialty Start Date End Date Misbah Elkins MD [address] [facility] [place] [address] PCP - General Internal Medicine 03/26/21 Team Status: Active Member Role Status Dates Dr. Bernard Galan III, MD Family Provider Active SOILA EASTON , MINI LAB OPERATOR-C Primary Care Provider Active Team Status: Inactive Member Role Status Dates SOILA EASTON , MINI LAB OPERATOR-C Primary Care Provider Active Ani Eduardo MINI LAB OPERATOR, MINI LAB OPERATOR-C Attending Provider, [facility] Provider Active Team Status: Inactive Member Role Status Dates SOILA EASTON , MINI LAB OPERATOR-C Primary Care Provider Active Dr. Levar Handy DO Attending Provider, Emergency Provider Active Team Status: Inactive Member Role Status Dates SOILA EASTON , MINI LAB OPERATOR-C Primary Care Provider Active Dr. Tasneem Dykes MD Emergency Provider Active Hip Hop Artist Relationship Specialty Start Date End Date Jaime Aggarwal MD [address] [place] [address] Resident Ophthalmology 11/01/22 Jeffery Jin MD [address] [place] [address] Resident Ophthalmology 11/01/22 Team Status: Active Member Role Status Dates SOILA EASTON , MINI LAB OPERATOR-C Primary Care Provider Active Dr. Edmund Tang MD Emergency Provider Active Dr. Ciarra Ross MD Admit Provider, Attending Provider , Other Provider Active Team Status: Active Member Role Status Lily EASTON , MINI LAB OPERATOR-C Primary Care Provider Active Dr. Edmund Tang MD Emergency Provider Active Dr. Ciarra Ross MD Admit Provider, Other Provider Act lopez Dr. Lisa Ochoa MD Attending Provider, Other Provid er Active Team Status: Active Member Role Status Dates SOILA EASTON , MINI LAB OPERATOR-C Primary Care Provider Active Dr. Edmund Tang MD Emergency Provider Active Dr. Ciarra Ross MD Admit Provider, Other Provider Act lopez Dr. Freddie Perdue MD Other Provider Active Dr. Gonzalo Sebastian , Attending Provider, Other Provide r Active Dr. Olivier Coffman MD Other Provider Active Dr. Dieter Harrison MD Other Provider Active Ani Eduardo MINI LAB OPERATOR, MINI LAB OPERATOR-C Other Provider Active Dr. Anastacia Bonilla MD Other Provider Active Dr. Lisa Ochoa MD Other Provider Active Team Status: Active Member Role Status Dates SOILA EASTON , MINI LAB OPERATOR-C Primary Care Provider Active Dr. Edmund Tang MD Emergency Provider Active Dr. Ciarra Ross MD Admit Provider, Other Provider Act lopez Dr. Freddie Perdue MD Other Provider Active Dr. Gonzalo Sebastian , Other Provider Active Dr. Olivier Coffman MD Other Provider Active Dr. Dieter Harrison MD Other Provider Active Ani Eduardo MINI LAB OPERATOR, MINI LAB OPERATOR-C Other Provider Active Dr. Anastacia Bonilla MD Attending Provider, Other Prov ider Active Dr. Lisa Ochoa MD Other Provider Active Team Status: Active Member Role Status Dates SOILA EASTON , MINI LAB OPERATOR-C Primary Care Provider Active Dr. Edmund Tang MD Emergency Provider Active Dr. Ciarra Ross MD Admit Provider, Other Provider Act lopez Dr. Freddie Perdue MD Other Provider Active Dr. Gonzalo Sebastian DO Other Provider Active Dr. Olivier Coffman MD Other Provider Active Dr. Dieter Harrison MD Other Provider Active Ani Eduardo MINI LAB OPERATOR, MINI LAB OPERATOR-C Other Provider Active Dr. Lisa Ochoa MD Other Provider Active Dr. Courtney Iverson MD Other Provider Active Dr. Anastacia Bonilla MD Attending Provider, Other Prov ider Active Team Status: Active Member Role Status Dates SOILA OLDER , MINI LAB OPERATOR-C Primary Care Provider Active Dr. Edmund Tang MD Emergency Provider Active Dr. Ciarra Ross MD Admit Provider, Other Provider Act lopez Dr. Freddie Perdue MD Other Provider Active Dr. Gonzalo Sebastian DO Attending Provider, Other Provide r Active Dr. Olivier Coffman MD Other Provider Active Dr. Dieter Harrison MD Other Provider Active Ani Edaurdo MINI LAB OPERATOR, MINI LAB OPERATOR-C Other Provider Active Dr. Lisa Ochoa MD Other Provider Active Dr. Courtney Iverson MD Other Provider Active Dr. Anastacia Bonilla MD Other Provider Active Team Status: Active Member Role Status Lily SOILA OLDER , MINI LAB OPERATOR-C Primary Care Provider Active Dr. Donn Galan MD Attending Provider Active Team Status: Active Member Role Status Dates SOILA OLDER , MINI LAB OPERATOR-C Primary Care Provider Active Dr. Nacho Vega MD Attending Provider Active Dr. Mahamed Fatima , Referring Provider Active Team Status: Active Member Role Status Dates SOILA OLDER , MINI LAB OPERATOR-C Primary Care Provider Active Dr. Edmund Tang [...] Harrison MD Other Provider Active Ani Eduardo MINI LAB OPERATOR, MINI LAB OPERATOR-C Other Provider Active Dr. Courtney Iverson MD Other Provider Active Team Status: Inactive Member Role Status Dates SOILA EASTON , MINI LAB OPERATOR-C Primary Care Provider Active Dr. Tasneem Dykes MD Attending Provider, Emergency Provider Active Team Status: Inactive Member Role Status Dates SOILA EASTON MINI LAB OPERATOR-C Primary Care Provider Active Dr. Edmund Tang MD Emergency Provider Active Dr. Ciarra Ross MD Admit Provider, Other Provider Act lopez Dr. Lisa Ochoa MD Other Provider Active Dr. Anastacia Bonilla MD Attending Provider Active Dr. Freddie Perdue MD Other Provider Active Dr. Gonzalo Sebatsian DO Other Provider Active Dr. Olivier Coffman MD Other Provider Active Dr. Dieter Harrison MD Other Provider Active Ani Eduardo MINI LAB OPERATOR, MINI LAB OPERATOR-C Other Provider Active Dr. Courtney Iverson MD Other Provider Active Hip Hop Artist Relationship Specialty Start Date End Date Misbah Elkins MD [address] [place] [address] PCP - General Internal Medicine 03/26/21 Hip Hop Artist Relationship Specialty Start Date End Date Misbah Elkins MD [address] [place] [address] PCP - General Internal Medicine 03/26/21 Hip Hop Artist Relationship Specialty Start Date End Date Misbah Elkins MD [address] [place] [address] PCP - General Internal Medicine 03/26/21 Hip Hop Artist Relationship Specialty Start Date End Date Misbah Elkins MD [address] [place] [address] PCP - General Internal Medicine 03/26/21 Hip Hop Artist Relationship Specialty Start Date End Date Misbah Elkins MD [address] [place] [address] PCP - General Internal Medicine 03/26/21 Hip Hop Artist Relationship Specialty Start Date End Date Misbah Elkins MD [address] [place] [address] PCP - General Internal Medicine 03/26/21 Hip Hop Artist Relationship Specialty Start Date End Date Misbah Elkins MD [address] [place] [address] PCP - General Internal Medicine 03/26/21 Team Status: Active Member Role Status Dates Ani Eduardo MINI LAB OPERATOR, MINI LAB OPERATOR-C Attending Provider, Referrin g Provider Active SOILA EASTON , MINI LAB OPERATOR-C Primary Care Provider Active Team Status: Inactive Member Role Status Dates SOILA EASTON MINI LAB OPERATOR-C Primary Care Provider Active Dr. Levar Handy , DO Emergency Provider Active Hip Hop Artist Relationship Specialty Start Date End Date Misbah Elkins MD [address] [place] [address] PCP - General Internal Medicine 03/26/21 Hip Hop Artist Relationship Specialty Start Date End Date Misbah Elkins MD [address] [place] [address] PCP - General Internal Medicine 03/26/21 Team Status: Inactive Member Role Status Dates SOILA EASTON MINI LAB OPERATOR-C Primary Care Provider, Referring Prov ider Active Ani Eduardo MINI LAB OPERATOR, MINI LAB OPERATOR-C Attending Provider Active Team Status: Inactive Member Role Status Dates Ani Eduardo MINI LAB OPERATOR, MINI LAB OPERATOR-C Attending Provider, Referrin g Provider Active SOILA EASTON , MINI LAB OPERATOR-C Primary Care Provider Active Hip Hop Artist Relationship Specialty Start Date End Date Misbah Elkins MD [address] [place] [address] PCP - General Internal Medicine 03/26/21 Hip Hop Artist Relationship Specialty Start Date End Date Misbah Elkins MD [address] [place], [place] [address] PCP - General Internal Medicine 03/26/21 Team Status: Active Member Role Status Dates Dr. Bernard Galan III, MD Family Provider Active Anat Gutiérrez MINI LAB OPERATOR, MINI LAB OPERATOR-C Primary Care Provider Active Team Status: Active Member Role Status Dates Dr. Víctor Huerta DO Emergency Provider Active Anat Gutiérrez MINI LAB OPERATOR, MINI LAB OPERATOR-C Primary Care Provider Active Dr. Carin Meraz MD Admit Provider, Attending Prov ider Active Team Status: Active Member Role Status Dates Dr. Víctor Huerta DO Emergency Provider Active Anat Gutiérrez MINI LAB OPERATOR, MINI LAB OPERATOR-C Primary Care Provider Active Dr. Carin Meraz MD Admit Provider, Other Provider Active Dr. Anastacia Bonilla MD Attending Provider, Other Prov ider Active Team Status: Active Member Role Status Dates Dr. Víctor Huerta DO Emergency Provider Active Anat Gutiérrez MINI LAB OPERATOR, MINI LAB OPERATOR-C Primary Care Provider Active Dr. Carin Meraz MD Admit Provider, Other Provider Active Dr. Bert Greenwood MD Attending Provider, Other Provi mary Active Dr. Anastacia Bonilla MD Other Provider Active Team Status: Inactive Member Role Status Dates Dr. Víctor Huerta DO Emergency Provider Active Anat Gutiérrez MINI LAB OPERATOR, MINI LAB OPERATOR-C Primary Care Provider Active Dr. Carin Meraz MD Admit Provider, Other Provider Active Dr. Bert Greenwood MD Attending Provider Active Dr. Anastacia Bonilla MD Other Provider Active Hip Hop Artist Relationship Specialty Start Date End Date Misbah Elkins MD [address] [place] [address] PCP - General Internal Medicine 03/26/21 Hip Hop Artist Relationship Specialty Start Date End Date Misbah Elkins MD [address] [place] [address] PCP - General Internal Medicine 03/26/21 Hip Hop Artist Relationship Specialty Start Date End Date Misbah Elkins MD [address] [place] [address] PCP - General Internal Medicine 03/26/21 Team Status: Inactive Member Role Status Dates Anat Gutiérrez MINI LAB OPERATOR, MINI LAB OPERATOR-C Primary Care Provider Active Dr. Erik Gomez MD Emergency Provider Active Hip Hop Artist Relationship Specialty Start Date End Date Misbah Elkins MD [address] [place] [address] PCP - General Internal Medicine 03/26/21 Hip Hop Artist Relationship Specialty Start Date End Date Misbah Elkins MD [address] [place] [address] PCP - General Internal Medicine 03/26/21 Hip Hop Artist Relationship Specialty Start Date End Date Misbah Elkins MD [address] [place] [address] PCP - General Internal Medicine 03/26/21 Hip Hop Artist Relationship Specialty Start Date End Date Misbah Elkins MD [address] [place] [address] PCP - General Internal Medicine 03/26/21 Hip Hop Artist Relationship Specialty Start Date End Date Misbah Elkins MD [address] [place] [address] PCP - General Internal Medicine 03/26/21 Hip Hop Artist Relationship Specialty Start Date End Date Misbah Elkins MD [address] [place] [address] PCP - General Internal Medicine 03/26/21 Hip Hop Artist Relationship Specialty Start Date End Date Misbah Elkins MD [address] [place] [address] PCP - General Internal Medicine 03/26/21 Hip Hop Artist Relationship Specialty Start Date End Date Misbah Elkins MD [address] [place] [address] PCP - General Internal Medicine 03/26/21 Hip Hop Artist Relationship Specialty Start Date End Date Misbah Elkins MD [address] [place] [address] PCP - General Internal Medicine 03/26/21 Hip Hop Artist Relationship Specialty Start Date End Date Misbah Elkins MD [address] [place] [address] PCP - General Internal Medicine 03/26/21 Hip Hop Artist Relationship Specialty Start Date End Date Misbah Elkins MD [address] [place] [address] PCP - General Internal Medicine 03/26/21 Hip Hop Artist Relationship Specialty Start Date End Date Misbah Elkins MD [address] [place] [address] PCP - General Internal Medicine 03/26/21 Hip Hop Artist Relationship Specialty Start Date End Date Misbah Elkins MD [address] [place] [address] PCP - General Internal Medicine 03/26/21 Hip Hop Artist Relationship Specialty Start Date End Date Misbah Elkins MD [address] [place] [address] PCP - General Internal Medicine 03/26/21 Hip Hop Artist Relationship Specialty Start Date End Date Misbah Elkins MD [address] [place] [address] PCP - General Internal Medicine 03/26/21 Hip Hop Artist Relationship Specialty Start Date End Date Misbah Elkins MD [address] [place] [address] PCP - General Internal Medicine 03/26/21 Hip Hop Artist Relationship Specialty Start Date End Date Misbah Elkins MD [address] [place] [address] PCP - General Internal Medicine 03/26/21 Hip Hop Artist Relationship Specialty Start Date End Date Misbah Elkins MD [address] [place] [address] PCP - General Internal Medicine 03/26/21 Candie Talley PA-C [address] [place], [place] [id number] [phone] Iuss Acoustic Analyst Family Medicine 09/04/24 Soila Easton APRN.LEGAL EXECUTIVE ASSISTANT [address] [place] [address] Iuss Acoustic Analyst Internal Medicine 09/04/24 Nara Larson PA-C [address] [place] [address] Iuss Acoustic Analyst Family Medicine 09/04/24 Hip Hop Artist Relationship Specialty Start Date End Date Misbah Elkins MD [address] [place] [address] PCP - General Internal Medicine 03/26/21 Candie Talley PA-C [address] [place] [address] Iuss Acoustic Analyst Family Medicine 09/04/24 Soila Easton APRN.LEGAL EXECUTIVE ASSISTANT [address] [place] [address] Iuss Acoustic Analyst Internal Medicine 09/04/24 Nara Larson PA-C [address] [facility] [place] [address] Iuss Acoustic Analyst Family [facility] 09/04/24 Hip Hop Artist Relationship Specialty Start Date End Date Misbah Elkins MD [address] [facility] [place] [address] PCP - General Internal Medicine 03/26/21 Candie Talley PA-C [address] [place] [address] Iuss Acoustic Analyst Family Medicine 09/04/24 Soila Easton APRN.LEGAL EXECUTIVE ASSISTANT [address] [place] [address] Iuss Acoustic Analyst Internal Medicine 09/04/24 Nara Larson PA-C [address] [place] [address] Iuss Acoustic Analyst Family Medicine 09/04/24 Hip Hop Artist Relationship Specialty Start Date End Date Misbah Elkins MD [address] [place] [address] PCP - General Internal Medicine 03/26/21 Candie Talley PA-C [address] [place] [address] Iuss Acoustic Analyst Family Medicine 09/04/24 Soila Easton APRN.LEGAL EXECUTIVE ASSISTANT [address] [place] [address] Iuss Acoustic Analyst Internal Medicine 09/04/24 Nara Larson PA-C [address] [place] [address] Iuss Acoustic Analyst Family Medicine 09/04/24 Hip Hop Artist Relationship Specialty Start Date End Date Misbah Elkins MD [address] [place] [address] PCP - General Internal Medicine 03/26/21 Candie Talley PA-C [address] [place] [address] Iuss Acoustic Analyst Family Medicine 09/04/24 Soila Easton APRN.LEGAL EXECUTIVE ASSISTANT [address] [place] [address] Iuss Acoustic Analyst Internal Medicine 09/04/24 Nara Larson PA-C [address] [place] [address] Iuss Acoustic Analyst Family Medicine 09/04/24 Hip Hop Artist Relationship Specialty Start Date End Date Misbah Elkins MD [address] [place] [address] PCP - General Internal Medicine 03/26/21 Candie Talley PA-C [address] [place] [address] Iuss Acoustic Analyst Family Medicine 09/04/24 Soila Easton APRN.LEGAL EXECUTIVE ASSISTANT [address] [place] [address] Iuss Acoustic Analyst Internal Medicine 09/04/24 Nara Larson PA-C [address] [place] [address] Iuss Acoustic Analyst Family Medicine 09/04/24 Hip Hop Artist Relationship Specialty Start Date End Date Misbah Elkins MD [address] [facility] [place] [address] PCP - General Internal Medicine 03/26/21 Candie Talley PA-C [address] [place] [address] Iuss Acoustic Analyst Family Medicine 09/04/24 Soila Easton APRN.LEGAL EXECUTIVE ASSISTANT [address] [place] [address] Iuss Acoustic Analyst Internal Medicine 09/04/24 Nara Larson PA-C [address] [place] [address] Iuss Acoustic Analyst Family Medicine 09/04/24 Hip Hop Artist Relationship Specialty Start Date End Date Misbah Elkins MD [address] [place] [address] PCP - General Internal Medicine 03/26/21 Candie Talley PA-C [address] [place] [address] Iuss Acoustic Analyst Family Medicine 09/04/24 Soila Easton, UNA.LEGAL EXECUTIVE ASSISTANT [address] [place] [address] Iuss Acoustic Analyst Internal Medicine 09/04/24 Nara Larson PA-C [address] [place] [address] Iuss Acoustic Analyst Family Medicine 09/04/24 Hip Hop Artist Relationship Specialty Start Date End Date Misbah Elkins MD [address] [place] [address] PCP - General Internal Medicine 03/26/21 Candie Talley PA-C [address] [place] [address] Iuss Acoustic Analyst Family Medicine 09/04/24 Soila Easton APRN.LEGAL EXECUTIVE ASSISTANT [address] [place] [address] Iuss Acoustic Analyst Internal Medicine 09/04/24 Nara Larson PA-C [address] [place] [address] Iuss Acoustic Analyst Family Medicine 09/04/24 Hip Hop Artist Relationship Specialty Start Date End Date Misbah Elkins MD [address] [place] [address] PCP - General Internal Medicine 03/26/21 Candie Talley PA-C [address] [place] [address] Iuss Acoustic Analyst Family Medicine 09/04/24 Soila Easton APRN.LEGAL EXECUTIVE ASSISTANT [address] [place] [address] Iuss Acoustic Analyst Internal Medicine 09/04/24 Nara Larson PA-C [address] [place] [address] Iuss Acoustic Analyst Family Medicine 09/04/24 Hip Hop Artist Relationship Specialty Start Date End Date Misbah Elkins MD [address] [place] [address] PCP - General Internal Medicine 03/26/21 Rustam, Soila, TRANSMISSIONS SYSTEMS OPERATOR.LEGAL EXECUTIVE ASSISTANT [address] [place], [place] [address] Iuss Acoustic Analyst Internal Medicine 09/04/24 Hip Hop Artist Relationship Specialty Start Date End Date Misbah Elkins MD [address] [place] [address] PCP - General Internal Medicine 03/26/21 Older, Soila, TRANSMISSIONS SYSTEMS OPERATOR.LEGAL EXECUTIVE ASSISTANT [address] [place] [address] Iuss Acoustic Analyst Internal Medicine 09/04/24 Hip Hop Artist Relationship Specialty Start Date End Date Misbah lEkins MD [address] [place] [address] PCP - General Internal Medicine 03/26/21 Rustam, Soila, TRANSMISSIONS SYSTEMS OPERATOR.LEGAL EXECUTIVE ASSISTANT [address] [place] [address] Iuss Acoustic Analyst Internal Medicine 09/04/24 Hip Hop Artist Relationship Specialty Start Date End Date Misbah Elkins MD [address] [place] [address] PCP - General Internal Medicine 03/26/21 Rustam, Soila, TRANSMISSIONS SYSTEMS OPERATOR.LEGAL EXECUTIVE ASSISTANT [address] [place], [place] [address] [facility] Internal Medicine 09/04/24 Team Status: Active Member Role Status Dates Dr. Misbah Elkins MD Primary Care Provider Active Start: November 24, 2024 Ani Eduardo MINI LAB OPERATOR, MINI LAB OPERATOR-C Attending Provider Active Start: November 24, 2024 Ani Eduardo MINI LAB OPERATOR, MINI LAB OPERATOR-C Referring Provider Active Start: November 24, 2024 Team Status: Active Member Role Status Dates Dr. Misbah Elkins MD Primary Care Provider Active Start: December 04, 2024 Dr. Franco Inman MD Emergency Provider Active S tart: December 04, 2024 Dr. Aleta Aguayo , Admit Provider Active Start : December 04, 2024 Dr. Aleta Aguayo DO Attending Provider Active S tart: December 04, 2024 Hip Hop Artist Relationship Specialty Start Date End Date Misbah Elkins MD [address] [place] [address] PCP - General Internal Medicine 03/26/21 Older, UNA Romero.LEGAL EXECUTIVE ASSISTANT [address] [place], [place] [address] Iuss Acoustic Analyst Internal Medicine 09/04/24 Team Status: Inactive Member [...] : December 08, 2024 Dr. Maria Antonia Slainas MD Other Provider Active Star t: December [...] Active St art: December 10, 2024 Dr. Arsi Black DO Other Provider Active Start: December [...] S tart: December 11, 2024 Dr. Rajni Aavlos MD Other Provider Active Start: December 11, [...] December 11, 2024 Dr. Yrn Kahn , DO Other Provider Active S tart: December 11, 2024 Team Status: Active Member Role Status Dates Dr. Misbah Elkins MD Primary Care Provider Active Start: December 12, 2024 Dr. Franco Inman MD Emergency Provider Active S tart: December 12, 2024 Dr. Aleta Aguayo , DO Admit [...] Start : December 09, 2024 Dr. Aleta Agauyo DO Other Provider Active Start : December [...] 2024 End: December 23, 2024 Ani Eduardo MINI LAB OPERATOR, MINI LAB OPERATOR-C Attending Provider Active Start: December 23, 2024 End: December 23, 2024 Team Status: Inactive Member Role Status Dates Dr. Misbah Elkins MD Primary Care Provider Active Start: December 24, 2024 End: December 24, 2024 Dr. Mo Velasco DO Emergency Provider Active Start : December 24, 2024 End: December 24, 2024 Hip Hop Artist Relationship Specialty Start Date End Date Misbah Elkins MD [address] [facility] [place], [place] [address] PCP - General Internal Medicine 03/26/21 Soila Easton APRN.LEGAL EXECUTIVE ASSISTANT [address] [facility], [place] [address] Iuss Acoustic Analyst Internal Medicine 09/04/24 Team Status: Inactive Member [...] January 01, 2025 End: January 01, 2025 Hip Hop Artist Relationship Specialty Start Date End Date Misbah Elkins MD [address] [facility] [place], [place] [address] PCP - General Internal Medicine 03/26/21 Soila Easton APRN.LEGAL EXECUTIVE ASSISTANT [address] [facility], [place] [address] Iuss Acoustic Analyst Internal Medicine 09/04/24 Hip Hop Artist Relationship Specialty Start Date End Date Misbah Elkins MD [address] [facility] [place] [address] PCP - General Internal Medicine 03/26/21 Soila Easton APRN.LEGAL EXECUTIVE ASSISTANT [address] [place] [address] Iuss Acoustic Analyst Internal Medicine 09/04/24 Hip Hop Artist Relationship Specialty Start Date End Date Misbah Elkins MD [address] [place] [address] PCP - General Internal Medicine 03/26/21 Soila Easton APRN.LEGAL EXECUTIVE ASSISTANT [address] [place] [address] Iuss Acoustic Analyst Internal Medicine 09/04/24 Hip Hop Artist Relationship Specialty Start Date End Date Misbah Elkins MD [address] [place] [address] PCP - General Internal Medicine 03/26/21 Soila Easton APRN.LEGAL EXECUTIVE ASSISTANT [address] [place] [address] Iuss Acoustic Analyst Internal Medicine 09/04/24 Team Status: Inactive Member [...] Inactive Member Role Status Dates Anat Gutiérrez MINI LAB OPERATOR, MINI LAB OPERATOR-C Referring Provider Active Start: February 08, 2025 End: February 08, 2025 Ani Eduardo MINI LAB OPERATOR, MINI LAB OPERATOR-C Attending Provider Active Start: February 08, 2025 End: February 08, 2025 Dr. Misbah Elkins MD Primary Care Provider Active Start: February 08, 2025 End: February 08, 2025 Hip Hop Artist Relationship Specialty Start Date End Date Misbah Elkins MD [address] [facility] [place] [address] PCP - General Internal Medicine 03/26/21 Soila Easton APRN.LEGAL EXECUTIVE ASSISTANT [address] [place] [address] Iuss Acoustic Analyst Internal Medicine 09/04/24 Hip Hop Artist Relationship Specialty Start Date End Date Misbah Elkins MD [address] [facility] [place] [address] PCP - General Internal Medicine 03/26/21 Soila Easton APRN.LEGAL EXECUTIVE ASSISTANT [address] [place] [address] Iuss Acoustic Analyst Internal Medicine 09/04/24 Team Status: Inactive Member Role Status Dates Dr. Misbah Elkins MD Primary Care Provider Active Start: February 26, 2025 End: February 26, 2025 Dr. Franco Inman MD Emergency Provider Active S tart: February 26, 2025 End: February 26, 2025 Hip Hop Artist Relationship Specialty Start Date End Date Misbah Elkins MD [address] [facility] [place] [address] PCP - General Internal Medicine 03/26/21 Soila Easton APRN.LEGAL EXECUTIVE ASSISTANT [address] [place] [address] Iuss Acoustic Analyst Internal Medicine 09/04/24 Team Status: Inactive Member [...] t: March 15, 2025 Dr. Gonzalo Sebastian , Other Provider Active Start : March 15, [...] Provider Active Sta rt: March 15, 2025 Hip Hop Artist Relationship Specialty Start Date End Date Misbah Elkins MD [address] [place] [address] PCP - General Internal Medicine 03/26/21 Soila Easton, TRANSMISSIONS SYSTEMS OPERATOR.LEGAL EXECUTIVE ASSISTANT [address] [place] [address] Iuss Acoustic Analyst Internal Medicine 09/04/24 Hip Hop Artist Relationship Specialty Start Date End Date Misbah Elkins MD [address] [place] [address] PCP - General Internal Medicine 03/26/21 Soila Easton, TRANSMISSIONS SYSTEMS OPERATOR.LEGAL EXECUTIVE ASSISTANT [address] [place] [address] Iuss Acoustic Analyst Internal Medicine 09/04/24 Elisa Branch MD Iuss Acoustic Analyst 03/23/25 04/06/25 Hip Hop Artist Relationship Specialty Start Date End Date Misbah Elkins MD [address] [facility] [place] [address] PCP - General Internal Medicine 03/26/21 Soila Easton, TRANSMISSIONS SYSTEMS OPERATOR.LEGAL EXECUTIVE ASSISTANT [address] [place] [address] Iuss Acoustic Analyst Internal Medicine 09/04/24 Elisa Branch MD Iuss Acoustic Analyst 03/23/25 04/06/25 Hip Hop Artist Relationship Specialty Start Date End Date Misbah Elkins MD [address] [facility] [place] [address] PCP - General Internal Medicine 03/26/21 Soila Easton, TRANSMISSIONS SYSTEMS OPERATOR.LEGAL EXECUTIVE ASSISTANT [address] [place] [address] Iuss Acoustic Analyst Internal Medicine 09/04/24 Elisa Branch MD Iuss Acoustic Analyst 03/23/25 04/06/25 Hip Hop Artist Relationship Specialty Start Date End Date Misbah Elkins MD [address] [facility] [place] [address] PCP - General Internal Medicine 03/26/21 Soila Easton APRN.LEGAL EXECUTIVE ASSISTANT [address] [place] [address] Iuss Acoustic Analyst Internal Medicine 09/04/24 Elisa Branch MD Iuss Acoustic Analyst 03/23/25 04/06/25 Hip Hop Artist Relationship Specialty Start Date End Date Misbah Elkins MD [address] [facility] [place] [address] PCP - General Internal Medicine 03/26/21 Soila Easton APRN.LEGAL EXECUTIVE ASSISTANT [address] [place] [address] Iuss Acoustic Analyst Internal Medicine 09/04/24 Elisa Branch MD Iuss Acoustic Analyst 03/23/25 04/06/25 Hip Hop Artist Relationship Specialty Start Date End Date Misbah Elkins MD [address] [facility] [place] [address] PCP - General Internal Medicine 03/26/21 Soila Easton APRN.LEGAL EXECUTIVE ASSISTANT [address] [place] [address] Iuss Acoustic Analyst Internal Medicine 09/04/24 Team Status: Active Member [...] December 11, 2024 Dr. Aris Black , DO Other Provider Active Start: December 11, [...] 2024 End: December 23, 2024 Ani Eduardo MINI LAB OPERATOR, MINI LAB OPERATOR-C Attending Provider Active Start: December 23, 2024 [...] Inactive Member Role/Relationship Status Dates Anat Gutiérrez MINI LAB OPERATOR, MINI LAB OPERATOR-C Referring Provider Active Start: February 08, 2025 End: February 08, 2025 Ani Eduardo MINI LAB OPERATOR, MINI LAB OPERATOR-C Attending Provider Active Start: February 08, 2025 [...] t: March 15, 2025 Dr. Gonzalo Sebastian , Attending Provider Active S tart: March 15, [...] Activ e Start: March 16, 2025 Dr. Pkao Fernández MD Admit Provider Active Star t: [...] 2025 End: April 10, 2025 Ani Eduardo MINI LAB OPERATOR, MINI LAB OPERATOR-C Attending Provider Active Start: April 10, 2025 End: April 10, 2025 Hip Hop Artist Relationship Specialty Start Date End Date Misbah Elkins MD [address] [place] [address] PCP - General Internal Medicine 03/26/21 Soila Easton APRN.LEGAL EXECUTIVE ASSISTANT [address] [place] [address] Iuss Acoustic Analyst Internal Medicine 09/04/24 Hip Hop Artist Relationship Specialty Start Date End Date Misbah Elkins MD [address] [facility] [place], [place] [address] PCP - General Internal Medicine 03/26/21 Soila Easton APRN.LEGAL EXECUTIVE ASSISTANT [address] [place], [place] [address] [facility] Internal Medicine 09/04/24 Team Status: Inactive Member Role/Relationship Status Dates Dr. Misbah Elkins MD Primary Care Provider Active Start: December 23, 2024 End: December 23, 2024 Dr. Misbah Elkins MD Referring Provider Active Start: December 23, 2024 End: December 23, 2024 Ani Eduardo MINI LAB OPERATOR, MINI LAB OPERATOR-C Attending Provider Active Start: December 23, 2024 [...] Inactive Member Role/Relationship Status Dates Anat Gutiérrez MINI LAB OPERATOR, MINI LAB OPERATOR-C Referring Provider Active Start: February 08, 2025 End: February 08, 2025 Ani Eduardo MINI LAB OPERATOR, MINI LAB OPERATOR-C Attending Provider Active Start: February 08, 2025 [...] Status: Active Member Role/Relationship Status Dates Dr. Mibsah Elkins MD Primary Care Provider Active Start: [...] 2025 End: March 15, 2025 Dr. Hever Marruof DO Other Provider Active St art: March [...] Active Start: March 14, 2025 Dr. Macario Klusty-Gosia , DO Emergency Provider Activ e Start: [...] March 15, 2025 Dr. Macario Alex , DO Emergency [...] 2025 End: April 10, 2025 Ani Eduardo MINI LAB OPERATOR, MINI LAB OPERATOR-C Attending Provider Active Start: April 10, 2025 [...] Start: April 18, 2025 Dr. Jackson Monk , Admit Provider Active Start: April 18, 2025 Dr. Jackson Monk DO Other Provider Active Start: April 18, 2025 Dr. Sudhir Izquierdo MD Attending Provider Active Start: April 18, 2025 Dr. Sudhir Izquierdo MD Other Provider Active Start: April 18, 2025 Dr. Bert Greenwood MD Other Provider Active Sta rt: April 18, 2025 Hip Hop Artist Relationship Specialty Start Date End Date Misbah Elkins MD [address] [place] [address] PCP - General Internal Medicine 03/26/21 Soila Easton, UNA.LEGAL EXECUTIVE ASSISTANT [address] [place] [address] Iuss Acoustic Analyst Internal Medicine 09/04/24 Hip Hop Artist Relationship Specialty Start Date End Date Misbah Elkins MD [address] [place] [address] PCP - General Internal Medicine 03/26/21 Soila Easton, TRANSMISSIONS SYSTEMS OPERATOR.LEGAL EXECUTIVE ASSISTANT [address] [place] [address] Iuss Acoustic Analyst Internal Medicine 09/04/24 Hip Hop Artist Relationship Specialty Start Date End Date Misbah Elkins MD [address] [place] [address] PCP - General Internal Medicine 03/26/21 Soila Easton APRN.LEGAL EXECUTIVE ASSISTANT [address] [place] [address] [phone] ([facility] 09/04/24 Team Status: Inactive Member [...] Inactive Member Role/Relationship Status Dates Anat Gutiérrez MINI LAB OPERATOR, MINI LAB OPERATOR-C Referring Provider Active Start: February 08, 2025 End: February 08, 2025 Ani Eduardo MINI LAB OPERATOR, MINI LAB OPERATOR-C Attending Provider Active Start: February 08, 2025 [...] t: March 15, 2025 Dr. Gonzalo Sebastian , Attending Provider Active S tart: March 15, [...] 2025 End: April 10, 2025 Ani Eduardo MINI LAB OPERATOR, MINI LAB OPERATOR-C Attending Provider Active Start: April 10, 2025 [...] Inactive Member Role/Relationship Status Dates Anat Gutiérrez MINI LAB OPERATOR, MINI LAB OPERATOR-C Referring Provider Active Start: February 08, 2025 End: February 08, 2025 Ani Eduardo MINI LAB OPERATOR, MINI LAB OPERATOR-C Attending Provider Active Start: February 08, 2025 [...] Provider Active Start: March 15, 2025 Dr. Eltno Abraham MD Other Provider Active Start: March [...] Start: March 16, 2025 Dr. Macario Alex , Emergency Provider Activ e Start: March 16, [...] 2025 End: April 10, 2025 Ani Eduardo MINI LAB OPERATOR, MINI LAB OPERATOR-C Attending Provider Active Start: April 10, 2025 [...] April 27, 2025 End: April 27, 2025 Team Status: Inactive Member Role/Relationship Status Dates Dr. Misbah Elkins MD Primary Care Provider Active Start: May 10, 2025 End: May 10, 2025 Dr. Joanne Kelly MD Emergency Provider Active S tart: May 10, 2025 End: May 10, 2025 Hip Hop Artist Relationship Specialty Start Date End Date Misbah Elkins MD [address] [place] [address] PCP - General Internal Medicine 03/26/21 Soila Easton APRN.IGOR [address] [place], [place] [address] Iuss Acoustic Analyst Internal Medicine 09/04/24 Hip Hop Artist Relationship Specialty Start Date End Date Misbah Elkins MD [address] [place] [address] PCP - General Internal Medicine 03/26/21 Soila Easton APRN.LEGAL EXECUTIVE ASSISTANT [address] [place] [address] Iuss Acoustic Analyst Internal Medicine 09/04/24 Hip Hop Artist Relationship Specialty Start Date End Date Misbah Elkins MD [address] [place] [address] PCP - General Internal Medicine 03/26/21 Soila Easton APRN.LEGAL EXECUTIVE ASSISTANT [address] [place] [address] Iuss Acoustic Analyst Internal Medicine 09/04/24 Hip Hop Artist Relationship Specialty Start Date End Date Misbah Elkins MD [address] [place] [address] PCP - General Internal Medicine 03/26/21 Soila Easton APRN.LEGAL EXECUTIVE ASSISTANT [address] [place] [address] Iuss Acoustic Analyst Internal Medicine 09/04/24 Team Status: Inactive Member Role/Relationship Status Dates Dr. Misbah Elkins MD Primary Care Provider Active Start: May 10, 2025 End: May 10, 2025 Dr. Joanne Kelly MD Attending Provider Active S tart: May 10, 2025 End: May 10, 2025 Dr. Joanne Kelly MD Emergency Provider Active S tart: May 10, 2025 End: May 10, 2025 Team Status: Inactive Member Role/Relationship Status Dates Dr. Misbah Elkins MD Primary Care Provider Active Start: May 24, 2025 End: May 24, 2025 Dr. Misbah Elkins MD Referring Provider Active Start: May 24, 2025 End: May 24, 2025 Ani Eduardo MINI LAB OPERATOR, MINI LAB OPERATOR-C Attending Provider Active Start: May 24, 2025 End: May 24, 2025 Team Status: Active Member Role/Relationship Status Dates Dr. Misbah Elkins MD Primary Care Provider Active Start: May 24, 2025 Dr. Sudhir Grijalva MD Attending Provider Active Start: May 24, 2025 Dr. Sudhir Grijalva MD Referring Provider Active Start: May 24, 2025 Team Status: Inactive Member Role/Relationship Status Dates Dr. Misbah Elkins MD Primary Care Provider Active Start: May 24, 2025 End: May 24, 2025 Dr. Mo Velasco DO Emergency Provider Active Start : May 24, 2025 End: May 24, 2025 Team Status: Inactive Member Role/Relationship Status Dates Anat Gutiérrez MINI LAB OPERATOR, MINI LAB OPERATOR-C Referring Provider Active Start: February 08, 2025 End: February 08, 2025 Ani Eduardo MINI LAB OPERATOR, MINI LAB OPERATOR-C Attending Provider Active Start: February 08, 2025 [...] Activ e Start: March 15, 2025 Dr. Pkao eFrnández MD Admit Provider Active Star t: March [...] t: March 15, 2025 Dr. Gonzalo Sebastian , Attending Provider Active S tart: March 15, [...] Provider Active Start: March 16, 2025 Dr. Esetvan Govea MD Other Provider Active Star t: March 16, 2025 Dr. Demarco Cervantes MD Other Provider Active Sta rt: March 16, 2025 Team Status: Inactive Member Role/Relationship Status Dates Dr. Misbah Elkins MD Primary Care Provider Active Start: April 10, 2025 End: April 10, 2025 Dr. Misbah Elkins MD Referring Provider Active Start: April 10, 2025 End: April 10, 2025 Ani Eduardo MINI LAB OPERATOR, MINI LAB OPERATOR-C Attending Provider Active Start: April 10, 2025 [...] 16, 2025 End: April 19, 2025 Dr. Suhdir Izquierdo MD Attending Provider Active Start: April [...] April 27, 2025 End: April 27, 2025 Team Status: Inactive Member Role/Relationship Status Dates Dr. Misbah Elkins MD Primary Care Provider Active Start: May 10, 2025 End: May 10, 2025 Dr. Joanne Kelly MD Attending Provider Active S tart: May 10, 2025 End: May 10, 2025 Dr. Joanne Kelly MD Emergency Provider Active S tart: May 10, 2025 End: May 10, 2025 Team Status: Inactive Member Role/Relationship Status Dates Dr. Misbah Elkins MD Primary Care Provider Active Start: May 24, 2025 End: May 24, 2025 Dr. Misbah Elkins MD Referring Provider Active Start: May 24, 2025 End: May 24, 2025 Ani Eduardo MINI LAB OPERATOR, MINI LAB OPERATOR-C Attending Provider Active Start: May 24, 2025 End: May 24, 2025 Team Status: Inactive Member Role/Relationship Status Dates Dr. Misbah Elkins MD Primary Care Provider Active Start: May 24, 2025 End: May 24, 2025 Dr. Sudhir Grijalva MD Attending Provider Active Start: May 24, 2025 End: May 24, 2025 Dr. Sudhir Grijalva MD Referring Provider Active Start: May 24, 2025 End: May 24, 2025 Team Status: Inactive Member Role/Relationship Status Dates Dr. Misbah Elkins MD Primary Care Provider Active Start: May 24, 2025 End: May 24, 2025 Dr. Mo Velasco DO Attending Provider Active Start : May 24, 2025 End: May 24, 2025 Dr. Mo Velasco DO Emergency Provider Active Start : May 24, 2025 End: May 24, 2025 Hip Hop Artist Relationship Specialty Start Date End Date Misbah Elkins MD [address] [facility] [place], [place] [id number] PCP - General Internal Medicine 03/26/21 Older, Soila, TRANSMISSIONS SYSTEMS OPERATOR.LEGAL EXECUTIVE ASSISTANT [address] [facility], [place] [id number] Iuss Acoustic Analyst Internal Medicine 09/04/24 Hip Hop Artist Relationship Specialty Start Date End Date Misbah Elkins MD [address] [facility] [place], [place] [id number] PCP - General Internal Medicine 03/26/21 Older, Soila, TRANSMISSIONS SYSTEMS OPERATOR.LEGAL EXECUTIVE ASSISTANT [address] [facility], [place] [id number] Iuss Acoustic Analyst Internal Medicine 09/04/24 Team Status: Active Member Role/Relationship Status Dates Dr. Misbah Elkins MD Primary care physician Active Team Status: Active Member Role/Relationship Status Dates Dr. Misbah Elkins MD Primary care physician Active Start: March 13, 2025 Dr. Macario Alex DO Emergency Department Physician Active Start: March 13, 2025 Dr. Pako Fernández MD Attending physician Active Start: March 13, 2025 Team Status: Inactive Member Role/Relationship Status Dates Dr. Misbah Elkins MD Primary care physician Active Start: March 13, 2025 End: March 15, 2025 Dr. Macario Alex DO Emergency Department Physician Active Start: March 13, 2025 End: March 15, 2025 Dr. Pako Fernández MD Admitting physician Active Start: March 13, 2025 End: March 15, 2025 Dr. Pako Fernández MD Nurse Practitioner Active Start: March 13, 2025 End: March 15, 2025 Dr. Sudhir Izquierdo MD Attending physician Activ e Start: March 13, 2025 End: March 15, 2025 Dr. Elton Abraham MD Nurse Practitioner Active Start: March 13, 2025 End: March 15, 2025 Dr. Ryan Ortega MD Nurse Practitioner Active Sta rt: March 13, 2025 End: March 15, 2025 Dr. Freddie Perdue MD Nurse Practitioner Active Start: March 13, 2025 End: March 15, 2025 Dr. Gonzalo Sebastian DO Nurse Practitioner Active S tart: March 13, 2025 End: March 15, 2025 Dr. Jackson Britt MD Nurse Practitioner Active Start: March 13, 2025 End: March 15, 2025 Dr. Jacky Perez MD Nurse Practitioner Active Start: March 13, 2025 End: March 15, 2025 Dr. Cricket Hoover MD Nurse Practitioner Active Start: March 13, 2025 End: March 15, 2025 Dr. Rajni Avalos MD Nurse Practitioner Active Start: March 13, 2025 End: March 15, 2025 Dr. Kahlil Jeff MD Nurse Practitioner Active S tart: March 13, 2025 End: March 15, 2025 Dr. Warren Anguiano MD Nurse Practitioner Active St art: March 13, 2025 End: March 15, 2025 Dr. Jaime Rey MD Nurse Practitioner Active S tart: March 13, 2025 End: March 15, 2025 Dr. Maria Antonia Salinas MD Nurse Practitioner Active Start: March 13, 2025 End: March 15, 2025 Dr. Michael Mistry MD Nurse Practitioner Active Start: March 13, 2025 End: March 15, 2025 Dr. Sylvia Hurt MD Nurse Practitioner Active Start: March 13, 2025 End: March 15, 2025 Dr. Jhony Arango MD Nurse Practitioner Active Start: March 13, 2025 End: March 15, 2025 Dr. Alex Montesinos MD Nurse Practitioner Active Start: March 13, 2025 End: March 15, 2025 Dr. Franki Jackson MD Nurse Practitioner Active Start: March 13, 2025 End: March 15, 2025 Dr. Hever Marrufo , Nurse Practitioner Active Start: March 13, 2025 End: March 15, 2025 Dr. Gonzalo Curz MD Nurse Practitioner Active St art: March 13, 2025 End: March 15, 2025 Dr. Nenita Armando MD Nurse Practitioner Active Start: March 13, 2025 End: March 15, 2025 Dr. Aris Black , Nurse Practitioner Active Start: March 13, 2025 End: March 15, 2025 Dr. Estevan Govea MD Nurse Practitioner Active Start: March 13, 2025 End: March 15, 2025 Dr. Demarco Cervantes MD Nurse Practitioner Active Start: March 13, 2025 End: March 15, 2025 Team Status: Active Member Role/Relationship Status Dates Dr. Misbah Elkins MD Primary care physician Active Start: March 14, 2025 Dr. Macario Alex DO Emergency Department Physician Active Start: 2024 Dr. Pako Fernández MD Admitting physician Active Start: March 14, 2025 Dr. Pako Fernández MD Nurse Practitioner Active Start: March 14, 2025 Dr. Sudhir Izquierdo MD Attending physician Active Start: March 14 Dr. Sudhir Izquierdo MD Nurse Practitioner Active Start: March 14 Team Status: Active Member Role/Relationship Status Dates Dr. Misbah Elkins MD Primary care physician Active Start: March 15, 2025 Dr. Macario Alex DO Emergency Department Physician Active Start: March 15, 2025 Dr. Pako Fernández MD Admitting physician Active Start: March 15, 2025 Dr. Pako Fernández MD Nurse Practitioner Active Start: March 15, 2025 Dr. Sudhir Izquierdo MD Referring Provider Active Start: March 15, 2025 Dr. Sudhir Izquierdo MD Nurse Practitioner Active Start: March 15, 2025 Dr. Elton Abraham MD Nurse Practitioner Active Start: March 15, 2025 Dr. Ryan Ortega MD Nurse Practitioner Active Sta rt: March 15, 2025 Dr. Freddie Perdue MD Nurse Practitioner Active Start: March 15, 2025 Dr. Gonzalo Sebastian , Attending physician Active Start: March 15, 2025 Dr. Gonzalo Sebastian , Nurse Practitioner Active S tart: March 15, 2025 Dr. Jackson Britt MD Nurse Practitioner Active Start: March 15, 2025 Dr. Jacky Perez MD Nurse Practitioner Active Start: March 15, 2025 Dr. Cricket Hoover MD Nurse Practitioner Active Start: March 15, 2025 Dr. Rajni Avalos MD Nurse Practitioner Active Start: March 15, 2025 Dr. Kahlil Jeff MD Nurse Practitioner Active S tart: March 15, 2025 Dr. Warren Anguiano MD Nurse Practitioner Active St art: March 15, 2025 Dr. Jaime Rey MD Nurse Practitioner Active S tart: March 15, 2025 Dr. Maria Antonia Salinas MD Nurse Practitioner Active Start: March 15, 2025 Dr. Michael Mistry MD Nurse Practitioner Active Start: March 15, 2025 Dr. Sylvia Hurt MD Nurse Practitioner Active Start: March 15, 2025 Dr. Jhony Arango MD Nurse Practitioner Active Start: March 15, 2025 Dr. Alex Montesinos MD Nurse Practitioner Active Start: March 15, 2025 Dr. Franki Jackson MD Nurse Practitioner Active Start: March 15, 2025 Dr. Hever Marrufo DO Nurse Practitioner Active Start: March 15, 2025 Dr. Gonzalo Cruz MD Nurse Practitioner Active St art: March 15, 2025 Dr. Nenita Armando MD Nurse Practitioner Active Start: March 15, 2025 Dr. Aris Black DO Nurse Practitioner Active Start: March 15, 2025 Dr. Estevan Govea MD Nurse Practitioner Active Start: March 15, 2025 Dr. Demarco Cervantes MD Nurse Practitioner Active Start: March 15, 2025 Team Status: Active Member Role/Relationship Status Dates Dr. Misbah Elkins MD Primary care physician Active Start: March 15, 2025 Dr. Macario Alex DO Emergency Department Physician Active Start: March 15, 2025 Dr. Pako Fernández MD Admitting physician Active Start: March 15, 2025 Dr. Pako Fernández MD Nurse Practitioner Active Start: March 15, 2025 Dr. Sudhir Izquierdo MD Attending physician Activ e Start: March 15, 2025 Dr. Sudhir Izquierdo MD Nurse Practitioner Active Start: March 15, 2025 Dr. Elton Abraham MD Nurse Practitioner Active Start: March 15, 2025 Dr. Ryan Ortega MD Nurse Practitioner Active Sta rt: March 15, 2025 Dr. Freddie Perdue MD Nurse Practitioner Active Start: March 15, 2025 Dr. Gonzalo Sebastian , Nurse Practitioner Active S tart: March 15, 2025 Dr. Jackson Britt MD Nurse Practitioner Active Start: March 15, 2025 Dr. Jacky Perez MD Nurse Practitioner Active Start: March 15, 2025 Dr. Cricket Hoover MD Nurse Practitioner Active Start: March 15, 2025 Dr. Rajni Avalos MD Nurse Practitioner Active Start: March 15, 2025 Dr. Kahlil Jeff MD Nurse Practitioner Active S tart: March 15, 2025 Dr. Warren Anguiano MD Nurse Practitioner Active St art: March 15, 2025 Dr. Jaime Rey MD Nurse Practitioner Active S tart: March 15, 2025 Dr. Maria Antonia Salinas MD Nurse Practitioner Active Start: March 15, 2025 Dr. Michael Mistry MD Nurse Practitioner Active Start: March 15, 2025 Dr. Sylvia Hurt MD Nurse Practitioner Active Start: March 15, 2025 Dr. Jhony Arango MD Nurse Practitioner Active Start: March 15, 2025 Dr. Alex Montesinos MD Nurse Practitioner Active Start: March 15, 2025 Dr. Franki Jackson MD Nurse Practitioner Active Start: March 15, 2025 Dr. Hever Marrufo DO Nurse Practitioner Active Start: March 15, 2025 Dr. Gonzalo Cruz MD Nurse Practitioner Active St art: March 15, 2025 Dr. Nenita Armando MD Nurse Practitioner Active Start: March 15, 2025 Dr. Aris Black , Nurse Practitioner Active Start: March 15, 2025 Dr. Estevan Govea MD Nurse Practitioner Active Start: March 15, 2025 Dr. Demarco Cervantes MD Nurse Practitioner Active Start: March 15, 2025 Team Status: Active Member Role/Relationship Status Dates Dr. Misbah Elkins MD Primary care physician Active Start: March 16, 2025 Dr. Macario Alex , Emergency Department Physician Active Start: March 16, 2025 Dr. Pako Fernández MD Admitting physician Active Start: March 16, 2025 Dr. Pako Fernández MD Nurse Practitioner Active Start: March 16, 2025 Dr. Sudhir Izquierdo MD Attending physician Activ e Start: March 16, 2025 Dr. Sudhir Izquierdo MD Nurse Practitioner Active Start: March 16, 2025 Dr. Elton Abraham MD Nurse Practitioner Active Start: March 16, 2025 Dr. Ryan Ortega MD Nurse Practitioner Active Sta rt: March 16, 2025 Dr. Freddie Perdue MD Nurse Practitioner Active Start: March 16, 2025 Dr. Gonzalo Sebastian DO Nurse Practitioner Active S tart: March 16, 2025 Dr. Jackson Britt MD Nurse Practitioner Active Start: March 16, 2025 Dr. Jacky Perez MD Nurse Practitioner Active Start: March 16, 2025 Dr. Cricket Hoover MD Nurse Practitioner Active Start: March 16, 2025 Dr. Rajni Avalos MD Nurse Practitioner Active Start: March 16, 2025 Dr. Kahlil Jeff MD Nurse Practitioner Active S tart: March 16, 2025 Dr. Warren Anguiano MD Nurse Practitioner Active St art: March 16, 2025 Dr. Jaime Rey MD Nurse Practitioner Active S tart: March 16, 2025 Dr. Maria Antonia Salinas MD Nurse Practitioner Active Start: March 16, 2025 Dr. Michael Mistry MD Nurse Practitioner Active Start: March 16, 2025 Dr. Sylvia Hurt MD Nurse Practitioner Active Start: March 16, 2025 Dr. Jhony Arango MD Nurse Practitioner Active Start: March 16, 2025 Dr. Alex Montesinos MD Nurse Practitioner Active Start: March 16, 2025 Dr. Franki Jackson MD Nurse Practitioner Active Start: March 16, 2025 Dr. Hever Marrufo DO Nurse Practitioner Active Start: March 16, 2025 Dr. Gonzalo Cruz MD Nurse Practitioner Active St art: March 16, 2025 Dr. Nenita Armando MD Nurse Practitioner Active Start: March 16, 2025 Dr. Aris Black DO Nurse Practitioner Active Start: March 16, 2025 Dr. Estevan Govea MD Nurse Practitioner Active Start: March 16, 2025 Dr. Demarco Cervantes MD Nurse Practitioner Active Start: March 16, 2025 Team Status: Inactive Member Role/Relationship Status Dates Dr. Misbah Elkins MD Primary care physician Active Start: April 10, 2025 End: April 10, 2025 Dr. Misbah Elkins MD Referring Provider Active Start: April 10, 2025 End: April 10, 2025 Ani Eduardo MINI LAB OPERATOR, MINI LAB OPERATOR-C Attending physician Active Start: April 10, 2025 End: April 10, 2025 Team Status: Inactive Member Role/Relationship Status Dates Dr. Misbah Elkins MD Primary care physician Active Start: April 16, 2025 End: April 19, 2025 Dr. Erik Gomez MD Referring Provider Active Start: April 16, 2025 End: April 19, 2025 Dr. Erik Gomez MD Emergency Department Physician Active Start: April 16, 2025 End: April 19, 2025 Dr. Jackson Monk DO Admitting physician Active Start: April 16, 2025 End: April 19, 2025 Dr. Jackson Monk DO Nurse Practitioner Active Start: April 16, 2025 End: April 19, 2025 Dr. Sudhir Izquierdo MD Attending physician Active Start: April 16 End: April 19, 2025 Dr. Bert Greenwood MD Nurse Practitioner Active Start: April 16, 2025 End: April 19, 2025 Team Status: Active Member Role/Relationship Status Dates Dr. Misbah Elkins MD Primary care physician Active Start: April 17, 2025 Dr. Erik Gomez MD Emergency Department Physician Active Start: April 17, 2025 Dr. Jackson de Dustin , DO Admitting physician Active Start: April 17, 2025 Dr. Jackson Monk DO Nurse Practitioner Active Start: April 17, 2025 Dr. Bert Greenwood MD Attending physician Active Start: April 17, 2025 Dr. Bert Greenwood MD Nurse Practitioner Active Start: April 17, 2025 Team Status: Active Member Role/Relationship Status Dates Dr. Misbah Elkins MD Primary care physician Active Start: April 18, 2025 Dr. Erik Gomez MD Emergency Department Physician Active Start: April 18, 2025 Dr. Jackson oMnk DO Admitting physician Active Start: April 18, 2025 Dr. Jcakson Monk DO Nurse Practitioner Active Start: April 18, 2025 Dr. Sudhir Izquierdo MD Attending physician Active Start: April 18 Dr. Sudhir Izquierdo MD Nurse Practitioner Active Start: April 18 Dr. Bert Greenwood MD Nurse Practitioner Active Start: April 18, 2025 Team Status: Active Member Role/Relationship Status Dates Dr. Misbah Elkins MD Primary care physician Active Start: April 19, 2025 Dr. Erik Gomez MD Emergency Department Physician Active Start: April 19, 2025 Dr. Jackson Monk DO Admitting physician Active Start: April 19, 2025 Dr. Jackson Monk DO Nurse Practitioner Active Start: April 19, 2025 Dr. Sudhir Izquierdo MD Attending physician Active Start: April 19 Dr. Sudhir Izquierdo MD Nurse Practitioner Active Start: April 19 Dr. Bert Greenwood MD Nurse Practitioner Active Start: April 19, 2025 Team Status: Inactive Member Role/Relationship Status Dates Dr. Misbah Elkins MD Primary care physician Active Start: April 26, 2025 End: April 26, 2025 Dr. Misbah Elkins MD Referring Provider Active Start: April 26, 2025 End: April 26, 2025 RICARDO Corral Attending physician Active Start: April 26, 2025 End: April 26, 2025 Team Status: Inactive Member Role/Relationship Status Dates Dr. Misbah Elkins MD Primary care physician Active Start: April 26, 2025 End: April 26, 2025 RICARDO Corral Attending physician Active Start: April 26, 2025 End: April 26, 2025 RICARDO Corral Referring Provider Active Start: April 26, 2025 End: April 26, 2025 Team Status: Inactive Member Role/Relationship Status Dates Dr. Misbah Elkins MD Primary care physician Active Start: April 27, 2025 End: April 27, 2025 RICARDO Corral Attending physician Active Start: April 27, 2025 End: April 27, 2025 RICARDO Corral Referring Provider Active Start: April 27, 2025 End: April 27, 2025 Team Status: Inactive Member Role/Relationship Status Dates Dr. Misbah Elkins MD Primary care physician Active Start: May 10, 2025 End: May 10, 2025 Dr. Joanne Kelly MD Attending physician Active Start: May 10, 2025 End: May 10, 2025 Dr. Joanne Kelly MD Emergency Department Physician Ac tive Start: May 10, 2025 End: May 10, 2025 Team Status: Inactive Member Role/Relationship Status Dates Dr. Misbah Elkins MD Primary care physician Active Start: May 24, 2025 End: May 24, 2025 Dr. Misbah Elkins MD Referring Provider Active Start: May 24, 2025 End: May 24, 2025 Ani Eduardo MINI LAB OPERATOR, MINI LAB OPERATOR-C Attending physician Active Start: May 24, 2025 End: May 24, 2025 Team Status: Inactive Member Role/Relationship Status Dates Dr. Misbah Elkins MD Primary care physician Active Start: May 24, 2025 End: May 24, 2025 Dr. Sudhir Grijalva MD Attending physician Active Start: May 24, 2025 End: May 24, 2025 Dr. Sudhir Grijalva MD Referring Provider Active Start: May 24, 2025 End: May 24, 2025 Team Status: Inactive Member Role/Relationship Status Dates Dr. Misbah Elkins MD Primary care physician Active Start: May 24, 2025 End: May 24, 2025 Dr. Mo Vealsco DO Attending physician Active Star t: May 24, 2025 End: May 24, 2025 Dr. Mo Velasco DO Emergency Department Physician Active Start: May 24, 2025 End: May 24, 2025 Team Status: Inactive Member Role/Relationship Status Dates Dr. Misbah Elkins MD Primary care physician Active Start: July 06, 2025 End: July 06, 2025 Dr. Misbah Elkins MD Referring Provider Active Start: July 06, 2025 End: July 06, 2025 Dr. Marshal Segura DO Attending physician Active Start: July 06, 2025 End: July 06, 2025 Team Status: Active Member Role/Relationship Status Dates Dr. Misbah Elkins MD Primary care physician Active Start: July 06, 2025 Dr. Misbah Elkins MD Referring Provider Active Start: July 06, 2025 Dr. Marshal Segura DO Attending physician Active Start: July 06, 2025 Dr. Marshal Segura DO Nurse Practitioner Active Start: July 06, 2025 Team Status: Inactive Member Role/Relationship Status Dates Dr. Misbah Elkins MD Primary care physician Active Start: July 06, 2025 End: July 07, 2025 Dr. Edmund Tang MD Emergency Department Physician Acti ve Start: July 06, 2025 End: July 07, 2025 Team Status: Inactive Member Role/Relationship Status Dates Dr. Misbah Elkins MD Primary care physician Active Start: July 10, 2025 End: July 10, 2025 Dr. Joanne Kelly MD Emergency Department Physician Ac tive Start: July 10, 2025 End: July 10, 2025 Goals (unrecognized section and content) Goals [...] BE BASED ON THE PRIMARY CLINICAL RECORDS. [facility] [employer] provides no warranty or guarantee of the accuracy or completeness of information in this document.
--- NOTE | 2025-07-12 22:00 | CT_ITS ---
PROCEDURE: CT BRAIN/HEAD WITHOUT CONTRAST 07/12/2025 REASON FOR EXAM: AMS TECHNIQUE: Procedure Code: CTBR Modality: CT Procedure: BRAIN/HEAD WITHOUT CONTRAST Coronal and Sagittal reconstruction series were provided. One or more dose reduction techniques were used (e.g., Automated exposure control, adjustment of the mA and/or kV according to patient size, use of iterative reconstruction technique. RADIATION DOSE SUMMARY: CTDlvol: 44.99 mGy DLP: 812.98 mGycm COMPARISON: None. FINDINGS: No acute intracranial hemorrhage, extra-axial collection, mass effect or evidence of acute territorial infarct. Mild generalized brain parenchymal volume loss and chronic microangiopathic changes in the supratentorial white matter. Atherosclerotic calcification along the carotid siphons. Unremarkable orbits. Intact skull base and calvarium. Clear paranasal sinuses and mastoid air cells. CT/Brain/Head without Contrast IMPRESSION: No definite acute intracranial abnormality. Mild parenchymal volume loss and chronic microangiopathic changes. Reading Location: [id number]
--- NOTE | 2025-07-12 22:01 | EKG12_ITS ---
Test Reason : SOB Blood Pressure : */* mmHG Vent. Rate : 98 BPM Atrial Rate : 98 BPM P-R Int : 154 ms QRS Dur : 82 ms QT Int : 376 ms P-R-T Axes : 78 69 79 degrees QTcB Int : 480 ms Normal sinus rhythm ST & T wave abnormality, consider lateral ischemia QTcB >= 480 msec Abnormal ECG Confirmed by CLIFTON MENENDEZ, COCO ([id number]), news copy editor CATHERINE PIERCE ([id number]) on 07/13/2025 9:54:51 AM Referred By: LUCY Confirmed By: COCO LAZO MD
--- NOTE | 2025-07-12 22:12 | EDS_ITS ---
HPI History of Present Illness Chief Complaint: Confusion Narrative Narrative: Patient is a 60-year-old female with past medical history of COPD chronically on 5 L nasal cannula, tobacco use, hypertension, chronic pancreatitis from alcohol abuse but no longer drinks with recent stent removal, left subclavian artery stenosis, hypertension who presents to the emergency department the chief complaint of confusion and altered mental status. According to family at bedside they found her without her oxygen on and noted that her oxygen saturation was 72% on room air. 1 family ember in the room advised them to call EMS however family decided to bring her here to the hospital to be evaluated and noted that in triage she was 58% with good waveform cyanotic. Patient is confused therefore history of present illness was obtained by family member therefore acute care caveat applies [facility] Medical History Wears glasses Wears dentures Dietary restriction Smoker BiPAP (biphasic positive airway pressure) dependence Sleep apnea History of echocardiogram Uses walker Encounter for replacement of pancreatic stent Stenosis of left subclavian artery Pulmonary nodule Acute hypoxic respiratory failure Chronic pancreatitis Pancreatic stones HLD (hyperlipidemia) History of alcohol abuse Pneumonia Acute on chronic hypoxic respiratory failure Stage 3 severe COPD by GOLD classification Asthma COPD (chronic obstructive pulmonary disease) Arthritis History of back problems Anxiety and depression Chronic pancreatitis HPV (human papilloma virus) infection Anemia Tobacco abuse GERD (gastroesophageal reflux disease) Benign hypertension Home Medications ?Medication ?Instructions ?Recorded ?Last Taken ?Type cholecalciferol (vitamin D3) 50 50 mcg PO DAILY SUPPLE MENT 12/29/18 03/13/25 09:00 History mcg (2,000 unit) capsule 50 mcg aripiprazole 5 mg tablet (Abilify) 5 mg PO DAILY mood 01/22/21 07/06/25 07:30 History mirtazapine 45 mg tablet 45 mg PO QHS sleep 01/16/22 03/12/25 21:00 History 45 mg metoprolol tartrate 25 mg tablet 25 mg PO BID 30 days #60 tabs 01/05/24 07/05/25 Rx lisinopril 10 mg tablet 10 mg PO QDAY hypertension 0 01/26/24 07/06/25 07:30 History albuterol sulfate 90 mcg/actuation 2 puff inhalation Q 4H PRN 05/11/24 03/13/25 09:00 Rx aerosol inhaler (Ventolin HFA) shortness of breath or wheezing 2 puff #18 grams ondansetron 4 mg disintegrating 4 mg PO Q6 PRN nausea/ vomiting 12/23/24 Unknown History tablet Shower chair #1 ea 12/30/24 Unknown Rx ipratropium 0.5 mg-albuterol 3 mg 3 ml inhalation Q4H shortness of 01/04/25 03/13/25 09:00 Rx (2.5 mg base)/3 mL nebulization breath or wheezing #36 0 mL 3 mL soln amlodipine 5 mg tablet 5 mg PO DAILY hypertension 0 03/13/25 07/06/25 07:30 History pantoprazole 40 mg tablet,delayed 40 mg PO DAILY acid reflux 03/13/25 07/06/25 07:30 History release simvastatin 20 mg tablet 20 mg PO QHS high cholestero l 03/13/25 03/12/25 21:00 History 20 mg budesonide 160 mcg-glycopyr 9 2 inh inhalation BID #10 .7 grams 04/10/25 Unknown Rx mcg-formot 4.8 mcg/actuation HFA inhaler (Breztri Aerosphere) OXYGEN - Supplemental ([facility] 5 l intranasal CONT 5 Unknown History INFORMATIONAL USE ONLY) tramadol 100 mg tablet 100 mg PO BID PRN pain 20 da ys #40 07/06/25 Unknown Rx tabs ciprofloxacin HCl 500 mg tablet 500 mg PO BID #14 TABL ETS 07/07/25 Unknown Rx metronidazole 500 mg tablet 500 mg PO Q8H #21 tabs 07/22 Unknown Rx albuterol sulfate 2.5 mg/3 mL 2.5 mg (3 mL) continuous 07/11/25 Unknown Rx (0.083 %) solution for nebulization nebulization PRN C OPD #180 mL Allergy/AdvReac Type Severity Reaction Status Date / Time clindamycin Allergy Intermediate Hives Verified 07/12/25 21:02 Penicillins Allergy Hives Verified 07/12/25 21:02 sulfamethoxazole (From Allergy Other Verified 07/12/25 21:02 Bactrim) trimethoprim (From Bactrim) Allergy Other Verified 07/12/25 21:02 hydrocodone (From [place]) AdvReac Itching Verified 07/12/25 21:02 Family History Mother Diabetes Hypertension Heart disease High cholesterol Arthritis Thyroid disorder Brother Hypertension Sister Cancer cervical Thyroid disorder Father Kidney disease Daughter Thyroid disorder Surgical History History of tubal ligation History of colonoscopy History of appendectomy Social History household members: family Smoking Status: Heavy Smoker (>10/day) Tobacco: How many years used: 30 second hand exposure: Yes alcohol intake: former details: Sober since 2020. substance use type: does not use caffeine: Yes ROS ROS ED ROS Narrative Review of systems unobtainable from the patient secondary to her altered mental status therefore acute care caveat applies EXAM Physical Exam Narrative Exam Narrative: General: Patient is lying in bed rest comfortably did not appear to be acute distress Head: Atraumatic, normocephalic Eyes: PERRL bilaterally, EOMI bilateral, no conjunctival injection noted Neck: Soft, supple, trachea midline Cardiovascular: Patient tachycardic with a regular rhythm Respiratory: Patient has coarse breath sounds bilaterally as well as end expiratory wheezing noted bilaterally Extremities: +5/5 strength noted in the bilateral upper and lower extremities Neurological: Patient very confused currently however moving all extremities Skin: Warm, dry, tact no rashes or lesions noted Const Vital Signs: 07/12/25 21:02 07/12/25 21:09 07/12/25 21:31 Temperature 97.5 F L Temperature Source Temporal Pulse Rate 117 H 109 H Respiratory Rate 14 22 H Respiratory Pattern Blood Pressure 150/74 H Blood Pressure Mean 99 Pulse Ox 58 95 94 Oxygen Delivery Method Nasal Cannula Nasal Cannula Nasal Cannula Oxygen Flow Rate (L/min) 5 6 6 07/12/25 21:35 07/12/25 21:45 07/12/25 22:00 Temperature Temperature Source Pulse Rate 108 H 108 H 107 H Respiratory Rate 23 H 13 21 H Respiratory Pattern Blood Pressure Blood Pressure Mean Pulse Ox 92 93 92 Oxygen Delivery Method Oxygen Flow Rate (L/min) 07/12/25 22:11 07/12/25 22:35 07/12/25 22:35 Temperature Temperature Source Pulse Rate 102 H Respiratory Rate 20 H Respiratory Pattern Normal Blood Pressure Blood Pressure Mean Pulse Ox 91 Oxygen Delivery Method Nasal Cannula Nasal Cannula Oxygen Flow Rate (L/min) 6 6 07/12/25 23:00 07/12/25 23:20 Temperature Temperature Source Pulse Rate 99 102 H Respiratory Rate 15 16 Respiratory Pattern Normal Blood Pressure 93/72 Blood Pressure Mean 79 Pulse Ox 94 Oxygen Delivery Method Nasal Cannula Oxygen Flow Rate (L/min) 6 MDM MDM MDM Narrative Medical decision making narrative: Patient is a 60-year-old female who presents to the emergency department chief complaint of hypoxia, altered mental status. On the differential diagnose includes Melamin to acute on chronic hypercapnic hypoxic respiratory failure, pneumonia, COPD exacerbation, intracranial hemorrhage. Once workup is obtained reviewed she will be reevaluated. Patient will be given DuoNebs. Patient CBC was significant for leukocytosis of 20,000, hemoglobin stable 12.5, plate count was 444. Patient's INR normal at 0.9, PT of 12.8. Patient ABG reviewed and showed a pH 7.37 with a pCO2 of 70 she has chronic hypercapnia at this point time do not believe she requires BiPAP as she has a normal pH. Patient sodium normal 135, potassium is 4.5, creatinine was elevated 2.03 indicating acute kidney injury. Patient lactic acid elevated 2.1. Patient AST and ALT are 25 and 16 respectively. Patient urinalysis pending. Patient chest x-ray reviewed myself by radiology showed no acute findings. Patient CT head brain without contrast showed no acute intracranial abnormalities mild parenchymal volume loss and chronic microangiopathic changes. Patient EKG showed sinus rhythm rate of 98 bpm with [place] interval normal at [address] changes which are likely secondary to her hypoxia as she has no chest pain. Patient was given a dose of Levaquin at 2249 as she does have a cough with her hypoxia and altered mental status with an elevated white count therefore we will treat her for a COPD exacerbation with altered mental status and CHUY. Will discuss case with hospitalist for admission. Discussed case with hospitalist Dr. Fernandez who will except patient for admission. Patient was notified as well as family at bedside all question concerns answered. Lab Data Labs: Laboratory Results - last 24 hr 07/12/25 21:30 WBC 20.3 H RBC 4.71 Hgb 12.5 Hct 41.6 MCV 88.3 MCH 26.5 L MCHC 30.0 L RDW Std Deviation 45.1 H RDW Coeff of Min 14.1 Plt Count 444 MPV 10.1 Immature Gran % (Auto) 3.000 H Neut % (Auto) 78.0 H Lymph % (Auto) 11.1 L [place] % (Auto) 6.4 Eos % (Auto) 0.4 Baso % (Auto) 1.1 H Absolute Neuts (auto) 15.8 H Absolute Lymphs (auto) 2.26 Nucleated RBC % 0 PT 12.8 INR 0.9 APTT 27.1 Sodium 135 Potassium 4.5 Chloride 88 L Carbon Dioxide 33.0 H Anion Gap 14 BUN 29 H Creatinine 2.03 H Estim Creat Clear Calc 23.77 L Est GFR (MDRD) Non-Af 27 L BUN/Creatinine Ratio 14.1 Glucose 154 H Lactic Acid 2.1 H* Calcium 9.5 Total Bilirubin 0.19 AST 25 ALT 16 Alkaline Phosphatase 157 H Total Protein 8.1 Albumin 4.1 Globulin 3.9 Albumin/Globulin Ratio 1.1 ABG Data ABG results: ABG 07/12/25 23:05 Specimen Type ART Sample Site R Radial pH 7.37 Bicarbonate Actual 40.7 H Total CO2 43 Base Excess 15 H O2 Saturation 88 L O2 % 6.0 ABG pCO2 70.1 H* ABG pO2 60 L Alexis Test Positive O2 Delivery Device Cannula Vent Mode Not entered Crit Call To/Read Back Yes Blood Gas Notified Whom Dr. Reyna Blood Gas Notified Time 23:06:45 Radiography Diagnostic Testing: Clinical Impression(s) from Imaging Studies Brain CT 07/12/25 22:00 IMPRESSION: No definite acute intracranial abnormality. Mild parenchymal volume loss and chronic microangiopathic changes. Reading Location: [id number] Chest X-Ray 07/12/25 22:15 IMPRESSION: NO ACUTE FINDINGS. Reading Location: [id number] Discharge Plan Dx/Rx/DC Orders Clinical Impression: Altered mental status, Acute on chronic hypoxic respiratory failure, CHUY (acute kidney injury), COPD exacerbation Disposition Disposition: [facility] Care [facility]
--- NOTE | 2025-07-12 22:15 | RAD_ITS ---
PROCEDURE: CHEST PA AND LATERAL 07/12/2025 REASON FOR EXAM: SOB TECHNIQUE: Procedure Code: RADCXR Modality: DX Procedure: CHEST PA AND LATERAL COMPARISON: 03/15/2025. FINDINGS: The lungs are clear. The heart is normal in size. No acute osseous abnormalities. RAD/Chest PA and Lateral IMPRESSION: NO ACUTE FINDINGS. Reading Location: [id number]
[2025-07-12 22:42] LABS: Hematocrit 41.6 % (37-47); Hemoglobin 12.5 g/dL (12.0-15.0); Immature Granulocytes Count 0.610 X10^3/uL (0.0-0.0); Mean Corp Hgb Conc 30.0 g/dL (32-36); Mean Corpuscular Volume 88.3 fL (81-99); Mean Platelet Vol. 10.1 fl (6.2-12.0); NRBC Flagged by Analyzer 0 % (0-5); Platelet Count 444 K/mm3 (150-450); RBC Distribution Width CV 14.1 % (11.6-14.6); RBC Distribution Width SD 45.1 fl (35.1-43.9); Red Blood Count 4.71 M/mm3 (4.2-5.4); White Blood Count 20.3 K/mm3 (4.4-11.0)
[2025-07-12 22:45] LABS: Prothrombin Time (Protime)PT. 12.8 SECONDS (11.7-14.9)
[2025-07-12 22:46] LABS: Partial Thromboplast Time 27.1 Seconds (24.1-36.2)
[2025-07-12 22:57] LABS: AST(SGOT) 25 U/L (<=31); Alanine Aminotransfer ALT/SGPT 16 U/L (<=34); Albumin, Serum 4.1 g/dL (3.4-4.8); Alkaline Phosphatase 157 U/L (35-104); Anion Gap 14 (5-15); BUN 29 mg/dL (4-19); BUN/Creat Ratio 14.1 RATIO (10-20); Calcium,Total 9.5 mg/dL (7.6-11.0); Carbon Dioxide 33.0 mmol/L (21.0-32.0); Chloride 88 mmol/L (98-108); Estimated Creatinine Clearance 23.77 ml/min (50-250); Globulin 3.9 g/dL (2.2-4.2); Glucose 154 mg/dL (70-99); Potassium 4.5 mmol/L (3.3-5.1)
[2025-07-12] MEDS: 0.9% Normal Saline (1000mL) 1,000 ML 999 ML IV ×2 (23:04→23:54)
[2025-07-12 23:09] LABS: Allen Test Positive; Base Excess 15 mmol/L (-2 to +2); FI02 6.0; PO2 60 mmHG (75-100); SITE R Radial; SO2 88 % (95-99); Time Given 23:06:45
[2025-07-12] MEDS: levoFLOXacin IV 750 MG/150 ML BAG 100 MG IV (23:16)
--- NOTE | 2025-07-12 23:52 | HP.PCM.HOS_ITS ---
HPI - General General Date of Admission: 07/13/25 Date of Service: 07/12/25 Chief Complaint: altered mental status HPI Narrative MIR KANG, is a 60 F with a PMH as outlined who presents via the ED on 07/12/2025 with a complaitn of altered mental status. She has a history of chronic pancreatitis from alcohol use disorder and chronic respiratory failure on 5 L of oxygen by nasal cannula. She was found by family without her oxygen on and she was saturating in the 70s. Therefore brought her to the ED to be evaluated. She recently had a pancreatic stent removed. Patient was quite confused though she was able to answer a few questions. She denied any pain, fever, chills, chest pain, palpitaitons, nausea or vomiting. She does not remember her oxygen being off and why. Vitals at time of review were blood pressure 106/83, pulse rate of 106, respirate rate of 16 and temperature of 91.8 Fahrenheit. She was saturating at 97% on 6 L of oxygen by nasal cannula. CBC showed hemoglobin of 12.5 with WBC of 20.3 and platelets of 444. Chemistry showed sodium of 135 with potassium of 4.5 and bicarb of 33. Creatinine was 2.03 and anion gap was 14. Lactic acid was 2.1. Urinalysis was pending at time of review. Chest x-ray showed no acute cardiopulmonary pathology and CT brain showed no acute intracranial abnormality. ABG done showed pH of 7.37 with pCO2 of 70.1 and pO2 of 60. Bicarb was 43. She has been admitted to be managed for acute on chronic hypoxic and hypercapnic respiratory failure in setting of patient not wearing her oxygen for a prolonged period and acute encephalopathy due to UTI. [facility] Medical History Wears glasses Wears dentures Dietary restriction Smoker BiPAP (biphasic positive airway pressure) dependence Sleep apnea History of echocardiogram Uses walker Encounter for replacement of pancreatic stent Stenosis of left subclavian artery Pulmonary nodule Acute hypoxic respiratory failure Chronic pancreatitis Pancreatic stones HLD (hyperlipidemia) History of alcohol abuse Pneumonia Acute on chronic hypoxic respiratory failure Stage 3 severe COPD by GOLD classification Asthma COPD (chronic obstructive pulmonary disease) Arthritis History of back problems Anxiety and depression Chronic pancreatitis HPV (human papilloma virus) infection Anemia Tobacco abuse GERD (gastroesophageal reflux disease) Benign hypertension Home Medications ?Medication ?Instructions ?Recorded ?Last Taken ?Type cholecalciferol (vitamin D3) 50 50 mcg PO DAILY SUPPLE MENT 12/29/18 03/13/25 09:00 History mcg (2,000 unit) capsule 50 mcg aripiprazole 5 mg tablet (Abilify) 5 mg PO DAILY mood 01/22/21 07/06/25 07:30 History mirtazapine 45 mg tablet 45 mg PO QHS sleep 01/16/22 03/12/25 21:00 History 45 mg metoprolol tartrate 25 mg tablet 25 mg PO BID 30 days #60 tabs 01/05/24 07/05/25 Rx lisinopril 10 mg tablet 10 mg PO QDAY hypertension 0 01/26/24 07/06/25 07:30 History albuterol sulfate 90 mcg/actuation 2 puff inhalation Q 4H PRN 05/11/24 03/13/25 09:00 Rx aerosol inhaler (Ventolin HFA) shortness of breath or wheezing 2 puff #18 grams ondansetron 4 mg disintegrating 4 mg PO Q6 PRN nausea/ vomiting 12/23/24 Unknown History tablet Shower chair #1 ea 12/30/24 Unknown Rx ipratropium 0.5 mg-albuterol 3 mg 3 ml inhalation Q4H shortness of 01/04/25 03/13/25 09:00 Rx (2.5 mg base)/3 mL nebulization breath or wheezing #36 0 mL 3 mL soln amlodipine 5 mg tablet 5 mg PO DAILY hypertension 0 03/13/25 07/06/25 07:30 History pantoprazole 40 mg tablet,delayed 40 mg PO DAILY acid reflux 03/13/25 07/06/25 07:30 History release simvastatin 20 mg tablet 20 mg PO QHS high cholestero l 03/13/25 03/12/25 21:00 History 20 mg budesonide 160 mcg-glycopyr 9 2 inh inhalation BID #10 .7 grams 04/10/25 Unknown Rx mcg-formot 4.8 mcg/actuation HFA inhaler (Breztri Aerosphere) OXYGEN - Supplemental ([facility] 5 l intranasal CONT 5 Unknown History INFORMATIONAL USE ONLY) tramadol 100 mg tablet 100 mg PO BID PRN pain 20 da ys #40 07/06/25 Unknown Rx tabs ciprofloxacin HCl 500 mg tablet 500 mg PO BID #14 TABL ETS 07/07/25 Unknown Rx metronidazole 500 mg tablet 500 mg PO Q8H #21 tabs 07/22 Unknown Rx albuterol sulfate 2.5 mg/3 mL 2.5 mg (3 mL) continuous 07/11/25 Unknown Rx (0.083 %) solution for nebulization nebulization PRN C OPD #180 mL Allergy/AdvReac Type Severity Reaction Status Date / Time clindamycin Allergy Intermediate Hives Verified 07/12/25 21:02 Penicillins Allergy Hives Verified 07/12/25 21:02 sulfamethoxazole (From Allergy Other Verified 07/12/25 21:02 Bactrim) trimethoprim (From Bactrim) Allergy Other Verified 07/12/25 21:02 hydrocodone (From [place]) AdvReac Itching Verified 07/12/25 21:02 Family History Mother Diabetes Hypertension Heart disease High cholesterol Arthritis Thyroid disorder Brother Hypertension Sister Cancer cervical Thyroid disorder Father Kidney disease Daughter Thyroid disorder Surgical History History of tubal ligation History of colonoscopy History of appendectomy Social History household members: family Smoking Status: Heavy Smoker (>10/day) Tobacco: How many years used: 30 second hand exposure: Yes alcohol intake: former details: Sober since 2020. substance use type: does not use caffeine: Yes ROS ROS Narrative confused, though able to answer some questions. Constitutional Constitutional: Reports fatigue, malaise and weakness; Denies anorexia, chills or fever(s) Eyes Eyes: Denies change in vision ENT HEENT: Denies dysphagia, headache(s) or sore throat Cardiovascular Cardiovascular: Reports dyspnea on exertion; Denies chest pain, edema, lightheadedness, orthopnea, palpitations, paroxysmal nocturnal dyspnea, rapid heart rate or syncope Respiratory/Chest Respiratory/Chest: Reports cough, dyspnea, shortness of breath at rest and shortness of breath with exertion; Denies hemoptysis, productive cough or wheezing Gastrointestinal Gastrointestinal: Denies abdominal pain, constipation, diarrhea, nausea or vomiting Neurologic Neurologic: Reports confusion; Denies dizziness, focal weakness, headache(s), numbness, paresthesias, seizures or syncope Psychiatric Psychiatric: Denies anxiety or depression Vital Signs Vital Signs Vital Signs: 07/12/25 21:02 07/12/25 21:09 07/12/25 21:31 Temperature 97.5 F L Temperature Source Temporal Pulse Rate 117 H 109 H Respiratory Rate 14 22 H Respiratory Pattern Blood Pressure 150/74 H Blood Pressure Mean 99 Pulse Ox 58 95 94 Oxygen Delivery Method Nasal Cannula Nasal Cannula Nasal Cannula Oxygen Flow Rate (L/min) 5 6 6 07/12/25 21:35 07/12/25 21:45 07/12/25 22:00 Temperature Temperature Source Pulse Rate 108 H 108 H 107 H Respiratory Rate 23 H 13 21 H Respiratory Pattern Blood Pressure Blood Pressure Mean Pulse Ox 92 93 92 Oxygen Delivery Method Oxygen Flow Rate (L/min) 07/12/25 22:11 07/12/25 22:35 07/12/25 22:35 Temperature Temperature Source Pulse Rate 102 H Respiratory Rate 20 H Respiratory Pattern Normal Blood Pressure Blood Pressure Mean Pulse Ox 91 Oxygen Delivery Method Nasal Cannula Nasal Cannula Oxygen Flow Rate (L/min) 6 6 07/12/25 23:00 07/12/25 23:20 07/12/25 23:30 Temperature Temperature Source Pulse Rate 99 102 H Respiratory Rate 15 16 Respiratory Pattern Normal Blood Pressure 93/72 89/76 L Blood Pressure Mean 79 80 Pulse Ox 94 Oxygen Delivery Method Nasal Cannula Oxygen Flow Rate (L/min) 6 07/12/25 23:46 07/12/25 23:48 Temperature 97.8 F 97.8 F Temperature Source Axillary Pulse Rate 106 H 106 H Respiratory Rate 22 H 16 Respiratory Pattern Blood Pressure 106/83 H 106/83 H Blood Pressure Mean 90 90 Pulse Ox 94 94 Oxygen Delivery Method Nasal Cannula Oxygen Flow Rate (L/min) Weight Weight: 128 lb 11.999 oz Body Mass Index (BMI) 22.8 Physical Exam Const alert and no apparent distress Constitutional Narrative: confused, but able to answer questions Orientation / Consciousness: confused HEENT normocephalic, head/scalp atraumatic, moist oral mucous membranes and oropharynx normal Mouth: oral and palatal mucosa normal Eyes EOMs intact bilaterally and conjunctivae normal Neck supple Resp Resp Narrative: mildly diminished breath sounds bibasally, no wheezes or crackles. on 6L of oxygen by nasal canula Cardio regular rate, regular rhythm, S1 normal heart sound, S2 normal heart sound and no murmurs GI normal to inspection, nondistended, normoactive bowel sounds, soft to palpation, non-tender and non-distended Extremity normal to inspection, full ROM and no clubbing, cyanosis or edema Neuro oriented x3 and moves all extremities Neuro Narrative: she does appear confused, though after several tries she was able to tell her name, where she was, date of and who the current vice president of operations is. Sensorium / Orientation: awake and alert Motor Exam: strength 5/5 throughout Psych Psych Narrative: confused Results Lab / Micro Data 07/13/25 05:25 07/12/25 21:30 Labs: Laboratory Results - last 24 hr 07/12/25 21:30: WBC 20.3 H, RBC 4.71, Hgb 12.5, Hct 41.6, MCV 88.3, MCH 26.5 L, MCHC 30.0 L, RDW Std Deviation 45.1 H, RDW Coeff of Min 14.1, Plt Count 444, MPV 10.1, Immature Gran % (Auto) 3.000 H, Neut % (Auto) 78.0 H, Lymph % (Auto) 11.1 L, [place] % (Auto) 6.4, Eos % (Auto) 0.4, Baso % (Auto) 1.1 H, Absolute Neuts (auto) 15.8 H, Absolute Lymphs (auto) 2.26, Nucleated RBC % 0, PT 12.8, INR 0.9, APTT 27.1, Sodium 135, Potassium 4.5, Chloride 88 L, Carbon Dioxide 33.0 H, Anion Gap 14, BUN 29 H, Creatinine 2.03 H, Estim Creat Clear Calc 23.77 L, Est GFR (MDRD) Non-Af 27 L, BUN/Creatinine Ratio 14.1, Glucose 154 H, Lactic Acid 2.1 H*, Calcium 9.5, Total Bilirubin 0.19, AST 25, ALT 16, Alkaline Phosphatase 157 H, Total Protein 8.1, Albumin 4.1, Globulin 3.9, Albumin/Globulin Ratio 1.1 ABG Data ABG results: ABG 07/12/25 23:05 Specimen Type ART Sample Site R Radial pH 7.37 Bicarbonate Actual 40.7 H Total CO2 43 Base Excess 15 H O2 Saturation 88 L O2 % 6.0 ABG pCO2 70.1 H* ABG pO2 60 L Alexis Test Positive O2 Delivery Device Cannula Vent Mode Not entered Crit Call To/Read Back Yes Blood Gas Notified Whom Dr. Reyna Blood Gas Notified Time 23:06:45 Imaging Radiology Impression Brain CT 07/12/25 22:00 IMPRESSION: No definite acute intracranial abnormality. Mild parenchymal volume loss and chronic microangiopathic changes. Reading Location: [id number] Chest X-Ray 07/12/25 22:15 IMPRESSION: NO ACUTE FINDINGS. Reading Location: [address] Assessment & Plan Assessment/Plan (1) CHUY (acute kidney injury): (2) COPD exacerbation: (3) Acute on chronic hypoxic respiratory failure: PLAN: Plan #Acute on chronic hypoxic and hypercapnic respiratory failure * Patient was found confused by her family with her oxygen off. They do not know how long she had had the oxygen off for. She usually wears 5 L of oxygen at home. * When family checked oxygen saturation she was in the 70s. Which came in the ED she was saturating in the 50s. She is on 6 L of oxygen now. She does remain confused though she is able to answer some questions. * She was hypotensive on admission with blood pressure down in the 90s systolic at time of my review. * CBC showed WBC of 20.3 hemoglobin was 12.5. Platelets were 444. * ABG showed pH of 7.37 with pCO2 of 70.1 and pO2 of 60. * Chemistry showed sodium of 135 with bicarb of 33 and creatinine of 2.03. Lactic acid is 2.1. * Patient currently on 6 L. Titrate oxygen to maintain saturation above 90%. Breathing treatments bronchodilators.she is not in COPD exacerbation so will hold off on steroids. #Acute encephalopathy due to UTI * Patient's urinalysis showed 2+ bacteria and elevated leukocyte esterase and positive nitrites. Lactic acid was also elevated at 2.1 though this could also have been due to hypoxia. * Get urine culture. Started on IV ceftriaxone. * #Hypertension: On amlodipine #History of chronic pancreatitis due to alcohol use disorder: * Recently had a pancreatic stent removed. * She had been taking tramadol at home and his daughter this could be contributing to her confusion. * Hold all sedative meds. * #Hyperlipidemia: On statin #Depression and anxiety: On aripiprazole and mirtazapine DVT prophylaxis: Lovenox CODE STATUS: Full code * Patient's sister counseled extensively about different types of CODE STATUS including full code, DNR CCA and DNR CCA. * Patient's sister stated that patient is a full code and would want CPR and intubation as needed. * Total face to face time: 16 minutes. Charges/Coding Visit Charges Inpatient E&M: 93271 Init Hosp L3 Procedures Hospitalists Procedures: 09314 Advncd Care Plan 30 Min
[2025-07-13] VITALS (19 sets, daily range): BP systolic 91–160; BP diastolic 67–94; PULSE 95–115; RESP 15–24; TEMP 35.8–37.1; O2SAT 92–95; BMI 22.4
[2025-07-13 00:13] LABS: Color, Urine Amber (Yellow); Glucose, Dipstick Normal (Normal); Ketone-Dipstick 5 mg/dl (Negative); Leukocyte Esterase-Dipstick 100 /ul (Negative); Nitrite-Dipstick Positive (Negative); Occult Blood-Urine 10 /ul (Negative); Protein-Dipstick 100 mg/dl (Negative); Specific Gravity, Urine 1.020 (1.002-1.030); Urine Bilirubin Dipstick Negative (Negative)
--- OUTSIDE RECORDS SUMMARY | 2025-07-13 00:19 | XMS RPT_ITS | CCD ---
Author Organization [facility] Care Team Providers Care Geography Head Name Role Phone TAZTERECHING Unavailable Unavailable Misbah Elkins MD Primary Care Provider Ho SERVICE COUNTER CASHIER, SERVICE COUNTER CASHIER-C Theron Primary Care Provider Dr. Freddie Perdue Attending Provider Dr. Freddie Perdue Referring Provider Misbah Elkins MD Primary Care Provider Misbah Elkins MD Primary Care Provider RUSTAM, SERVICE COUNTER CASHIER-C SOILA Primary Care Provider Alesha SERVICE COUNTER CASHIER, SERVICE COUNTER CASHIER-C Ani Attending Provider Alesha SERVICE COUNTER CASHIER, SERVICE COUNTER CASHIER-C Ani Referring Provider Unavailable Primary Care Provider [...] Dieter Harrison Other Provider Unavailab anjelica Eduardo SERVICE COUNTER CASHIER, SERVICE COUNTER CASHIER-C Ani Other Provider Dr. Anastacia Bonilla Other [...] Unavailable Pending, Provider Primary Care Unavailable OLDER, SERVICE COUNTER CASHIER-C SOILA Primary Care Provider OLDER, SERVICE COUNTER CASHIER-C SOILA Referring Provider Alesha SERVICE COUNTER CASHIER, SERVICE COUNTER CASHIER-C Ani Attending Provider Dr. Víctor Huerta Emergency Provider Brock SERVICE COUNTER CASHIER, SERVICE COUNTER CASHIER-C Anat Primary Care Provider Dr. Carin Meraz Admit Provider Dr. Carin Meraz Other Provider Dr. Anastacia Bonilla Attending Provider Dr. Anastacia Bonilla Other Provider Dr. Bert Greenwood Attending Provider Dr. Bert Greenwood Other Provider Satnam MENENDEZ, Misbah Primary Care Provider Candie Talley PA-C Unavailable Older SALES MARKETING.COMPANY MARKER, Soila Unavailable Neo BELTRAN, Nara Unavailable Satnam MENENDEZ, Dr. Anguiano Primary Care Provider Alesha SERVICE COUNTER CASHIER-C, Ani Attending Provider Alesha SERVICE COUNTER CASHIER-CAni Referring Provider Storm MENENDEZ, Dr. Gamez Emergency [...] 45 Brad MENENDEZ, Dr. Em Other Provider [phone] Fede MENENDEZ, Dr. Rodriguez Other Provider [facility] cherry Hurt MD, Dr. Ward Other Provider [phone] Conchita MENENDEZ, Dr. Booker Other Provider [phone] Yamel MENENDEZ, Dr. Johnson Other Provider Manuel [...] Kiko MENENDEZ, Dr. Harley Other Provider [phone] Robbie MENENDEZ, Dr. Urban Other Provider Randee MENENDEZ, Dr. Guillory Other Provider [phone] Silvio MENENDEZ, Dr. Kelley Other Provider [phone] Candido MENENDEZ, Dr. Sandoval Other Provider [phone] Brad MENENDEZ, Dr. Em Other Provider [phone] Fede MENENDEZ, Dr. Rodriguez Other Provider Unavailabl cherry Hurt MD, Dr. Ward Other Provider [phone] Conchita MENENDEZ, Dr. Booker Other Provider [phone] Yamel MENENDEZ, Dr. Johnson Other Provider [phone] Manuel MENENDEZ, Dr. Doan Other Provider Niru LOTT, Dr. Kathleen Other Provider [phone] Nancy MENENDEZ, Dr. Sánchez Other Provider [phone] Tr MENENDEZ, Dr. Gutierres Other Provider [phone] Sofia LOTT, Dr. Hurst Other Provider Jeferson MENENDEZ, Dr. Barreto Other Provider Billy MENENDEZ, Dr. Pal Other Provider Dr. Yrn Kahn DO Attending Provider [phone] Chad MENENDEZ, Dr. Anastacia Ni Other Provider Dr. Marshal Segura DO Attending Provider Satnam MENENDEZ, Dr. Anguiano Primary Care Provider [phone] Alesha SERVICE COUNTER CASHIER-CAni Attending Provider Alesha SERVICE COUNTER CASHIER-CAni Referring Provider Storm MENENDEZ, Dr. Gamez Emergency [...] Provider Kiko MENENDEZ, Dr. Harley Other Provider [phone] Robbie MENENDEZ, Dr. Urban Other Provider aRndee MENENDEZ, Dr. Guillory Other Provider Silvio MENENDEZ, Dr. Kelley Other Provider [phone] Dr. Jaime Rey MD Other Provider Brad MENENDEZ, Dr. Em Other Provider Fede MENENDEZ, Dr. Rodriguez Other Provider [facility] cherry Hurt MD, Dr. Ward Other Provider Dr. Jhony Arango MD Other Provider Yamel MENENDEZ, Dr. Johnson Other Provider Dr. Franki Jackson MD Other Provider Dr. Hever Marrufo DO Other Provider Nancy MENENDEZ, Dr. Sánchez Other Provider [phone] Nenita Armando MD Other Provider [...] Storm MENENDEZ, Dr. Gamez Attending Provider Brock SERVICE COUNTER CASHIER-C, Anat Referring Provider Abi LOTT, Dr. Camacho [...] Chris MENENDEZ, Dr. Rico Other Provider [phone] Kiko MENENDEZ, Dr. Harley Other Provider Robbie MENENDEZ, Dr. Urban Other Provider [phone] Randee MENENDEZ, Dr. Guillory Other Provider [phone] [...] Tr MENENDEZ, Dr. Gutierres Other Provider [phone] Aris Black DO Other Provider Jeferson MENENDEZ, Dr. Barreto Other Provider Billy MENENDEZ, Dr. Pal Other Provider Chad MENENDEZ, Dr. Anastacia Ni Other Provider [phone] Dr. Gonzalo Sebastian DO Attending Provider Alesha [...] MENENDEZ, Dr. Jackson Salas Other Provider [phone] Chris MENENDEZ, Dr. Rico Other Provider [phone] Kiko MENENDEZ, Dr. Harley Other Provider Robbie MENENDEZ, Dr. Urban Other Provider [phone] Randee MENENDEZ, Dr. Guillory Other Provider [phone] Silvio MENENDEZ, Dr. Kelley Other Provider [phone] Candido MENENDEZ, Dr. Sandoval Other Provider [phone] Brad MENENDEZ, Dr. Em Other Provider Fede MENENDEZ, Dr. Rodriguez Other Provider Unavailabl cherry Hurt MD, Dr. Wrad Other Provider [phone] Conchita MENENDEZ, Dr. Booker Other Provider Yamel MENENDEZ, Dr. Johnson Other Provider [phone] Manuel MENENDEZ, Dr. Doan Other Provider [phone] Dr. Hever Marrufo DO Other Provider [phone] Nancy MENENDEZ, Dr. Sánchez Other Provider [phone] Tr MENENDEZ, Dr. Gutierres Other Provider [phone] Aris Black DO Other Provider Jeferson MENENDEZ, Dr. Barreto Other Provider Billy MENENDEZ, Dr. Pal Other Provider [phone] Romulo LOTT, Dr. Sánchez Attending Provider Patricia MENENDEZ, Dr. Valencia Referring Provider Dr. [...] MENENDEZ, Dr. Anguiano Primary Care Provider Alesha SERVICE COUNTER CASHIER-CAni Attending Provider Dr. Misbah Elkins MD Referring [...] Dr. Misbah Elkins MD Primary Care Provider [phone] Dr. Franco Inman MD Attending Provider [phone] Dr. Franco Inman MD Emergency Provider Dr. Mo Velasco DO Attending Provider [phone] GANTA, MISBAH Primary Care Unavailable GANTA, MISBAH [...] MISBAH Primary Care Unavailable YOUNGBLOOD, TARA JAY Attending Unavailabl e GANTA, MISBAH Primary Care Unavailable OLDER, SOILA Referring Unavailable GANTA, MISBAH Primary Care Unavailable OLDER, SOILA Attending Unavailable NADEEN, JUAN Attending Unavailable GANTA, MISBAH Primary Care Unavailable OLDER, SOILA Referring Unavailable GANTA, MISBAH Attending Unavailable GANTA, MISBAH Primary Care Unavailable GANTA, MISBAH Primary Care Unavailable OLDER, SOILA Referring Unavailable GANTA, MISBAH Primary Care Unavailable YOUNGBLOOD, TARA MISTY Referring Unavailabl e GANTA, MISBAH Attending Unavailable GANTA, MISBAH Primary Care Unavailable GANTA, MISBAH Primary Care Unavailable OLDER, SOILA Attending Unavailable DIONICIO, VANESSA A Attending Unavailable GANTA, MISBAH Primary Care Unavailable SIDDIKI, KNIGHT Referring Unavailable GANTA, MSIBAH Primary Care Unavailable NICOLAS GREER Attending Unavailable RODERICK, GURJIT Referring Unavailable GANTA, MISBAH Primary Care Unavailable YOUNGBLOOD, TARA MISTY Referring Unavailabl e GANTA, MISBAH Primary Care Unavailable GANTA, MISBAH Referring Unavailable GANTA, MISBAH Primary Care Unavailable OLDER, SOILA Attending Unavailable GANTA, MISBAH Primary Care Unavailable GANTA, MISBAH Referring Unavailable Ganta , Dr. Anguiano Primary Care Physician [phone] Dr. Macario Alex DO Emergency Departmen t Physician Dr. Pako Fernández MD Attending Physician Dr. Pako Fernández MD Admitting Physician Dr. Pako Fernández MD Nurse Practitioner Felecia MENENDEZ, Dr. Sudhir Monte Attending Physician Leigh MENENDEZ, Dr. Conde Nurse Practitioner Shannon MENENDEZ, Dr. Davis Nurse Practitioner Iron MENENDEZ, Dr. Frazier Nurse Practitioner Dr. Gonzalo Sebastian DO Nurse Practitioner Lorenza MENENDEZ, Dr. Jackson Salas Nurse Practitioner Chris MENENDEZ, Dr. Rico Nurse Practitioner Kiko MENENDEZ, Dr. Harley Nurse Practitioner Robbie MENENDEZ, Dr. Urban Nurse Practitioner Randee MENENDEZ, Dr. Guillory Nurse Practitioner Silvio MENENDEZ, Dr. Kelley Nurse Practitioner Candido MENENDEZ, Dr. Sandoval Nurse Practitioner [phone] Brad MENENDEZ, Dr. Em Nurse Practitioner Fede MENENDEZ, Dr. Rodriguez Nurse Practitioner Unavail able Blu MENENDEZ, Dr. Ward Nurse Practitioner Conchita MENENDEZ, Dr. Booker Nurse Practitioner Yamel MENENDEZ, Dr. Johnson Nurse Practitioner Manuel MENENDEZ, Dr. Doan Nurse Practitioner Niru LOTT, Dr. Kathleen Nurse Practitioner Nancy MENENDEZ, Dr. Sánchez Nurse Practitioner Tr MENENDEZ, Dr. Gutierres Nurse Practitioner Sofia LOTT, Dr. Hurst Nurse Practitioner [phone] Jeferson MENENDEZ, Dr. Barreto Nurse Practitioner Billy MENENDEZ, Dr. Pal Nurse Practitioner Felecia MENENDEZ, Dr. Sudhir Monte Nurse Practitioner Dr. Gonzalo Sebastian DO Attending Physician Alesha SERVICE COUNTER CASHIER-C, Ani Attending Physician Patricia MENENDEZ, Dr. Valencia Emergency Department [facility] ici Dr. Jackson Monk DO Admitting Physician Ana Maria vailable Monk DO, Dr. Paz Nurse Practitioner Ana Mariav javier Greenwood MD, Dr. Noel Nurse Practitioner Timo MENENDEZ, Dr. Noel Attending Physician Gabby Vela Attending Physician [phone] Robin MENENDEZ, Dr. Rubio Attending Physician Unavaila devon Kelly MD, Dr. Rubio Emergency Department Physici an Unavailable Valentine MENENDEZ, Dr. Peguero Attending Physician Anjelica LOTT, Dr. Hassan Attending Physician Anjelica LOTT, Dr. Hassan Emergency Department Physician Colton LOTT, Dr. Araya Attending Physician [phone] Colton LOTT, Dr. Araya Nurse Practitioner Clyde MENENDEZ, Dr. Shaffer Emergency Department Physician Alesha SERVICE COUNTER CASHIER, Ani Attending Unavailable Alesha SERVICE COUNTER CASHIER, Ani Referring Unavailable [facility] Primary Care Unavailable Erik Gomez Referring Unavailable [facility] Primary Care Unavailable Sudhir Izquierdo Attending Unavailable Jackson Monk Consulting Unavailable Jackson Monk Admitting Unavailable Bert Greenwood Consulting Unavailable Aleta Aguayo Consulting Unavailable Aleta Aguayo Admitting Unavailable Anastacia Bonilla Attending Unavailable [facility] Primary [facility] Unavailable Yrn Kahn Consulting Unavailable [facility] Primary Care Unavailable Sudhir Izquierdo Attending Unavailable Pako Fernández Admitting Unavailable Pako Fernández Consulting Unavailable Elton Abraham Consulting Unavailable Ryan Ortega Consulting Unavailable Freddie Perdue Consulting Unavailable Gonzalo Sebastian Consulting Unavailable Jackson Britt Consulting Unavailable Jacky Perez Consulting Unavailable Cricket Hoover Consulting Unavailable Rajni Avalos Consulting Unavailab anjelica Jeff Kahlil Consulting Unavailable Warren Anguiano Consulting Unavailable Jaime Rey Consulting Unavailable Maria Antonia Salinas Consulting Unavailable Michael Mistry Consulting Unavailable Sylvia Hurt Consulting Unavailable Lawanda Arangotam Consulting Unavailable Alex Montesinos Consulting Unavailable Manuel, Franki Consulting Unavailable Dhesi, Hever Consulting Unavailable Gonzalo Cruz Consulting Unavailable Nenita Armando Consulting Unavailable Aris Black Consulting Unavailable Jeferson, Estevan Consulting Unavailable Demarco Cervantes Consulting Unavailable Sudhir Izquierdo Attending Unavailable Erik Gomez Referring Unavailable Ganta, Misbah Primary Care Unavailable Jackson Monk Consulting Unavailable Jackson Monk Admitting Unavailable Bert Greenwood Consulting Unavailable Sudhir Izquierdo Consulting Unavailable Aleta Aguayo Consulting Unavailable Aleta Aguayo Admitting Unavailable Gonzalo Sebastian Attending Unavailable Ganta, Misbah Primary Care Unavailable Yrn Kahn Referring Unavailable Elton Abraham [...] Montesinos Consulting Unavailable Franki Jackson Consulting Unavailable DheConchita meadeHever Consulting Unavailable Gonzalo Cruz Consulting Unavailable Nenita Armando Consulting Unavailable Aris Black Consulting Unavailable Jeferson, Estevan Consulting Unavailable Demarco Cervantes Consulting Unavailable Yrn Kahn Consulting Unavailable Aleta Aguayo Attending Unavailable Ganta, Misbah Primary Care Unavailable Leandro Sanchez Attending Unavailable Leandro Sanchez Referring Unavailable Ganta, Misbah Primary Care Unavailable Franco Inman Attending Unavailable Ganta, Misbah Primary Care Unavailable Franco Inman Attending Unavailable Ganta, Misbah Primary Care Unavailable Edmund Tang Attending Unavailable Joanne Kelly Attending Unavailable Ganta, Misbah Primary Care Unavailable Alesha SERVICE COUNTER CASHIER, Ani Referring Unavailable Alesha SERVICE COUNTER CASHIER, Ani Attending Unavailable Ganta, Misbah Primary Care Unavailable Ganta, Misbah Primary Care Unavailable Joanne Kelly Attending Unavailable Romeoam Anastacia Raine Attending Unavailable Koram, Anastacia Raine Consulting Unavailable Ganta, Misbah Primary Care Unavailable Pako Fernández Attending Unavailable Ganta, Misbah Primary Care Unavailable Mo Velasco Attending Unavailable Ganta, Misbah Primary Care Unavailable Sudhir Izquierdo Attending Unavailable Pako Fernández Admitting Unavailable Pako Fernández Consulting Unavailable Sudhir Izquierdo Consulting Unavailable Elton Abraham Consulting Unavailable Ryan Ortega Consulting Unavailable Freddie Perdue Consulting Unavailable Gonzalo Sebastian Consulting Unavailable Jackson Britt Consulting Unavailable Jacky Perez Consulting Unavailable Cricket Hoover Consulting Unavailable Rajni Avalos Consulting Unavailab Kahlil Dietz Consulting Unavailable Warren Anguiano Consulting Unavailable Jaime Rey Consulting Unavailable Maria Antonia Salinas Consulting Unavailable Michael Mistry Consulting Unavailable HurtSylvia miles Consulting Unavailable Conchita, Jhony Consulting Unavailable Irhi Alex Consulting Unavailable Manuel, Franki Consulting Unavailable Dhedeshaun, Hever Consulting Unavailable Gonzalo Cruz Consulting Unavailable Nenita Armando Consulting Unavailable Aris Black Consulting Unavailable Estevan Govea Consulting Unavailable Demarco Cervantes Consulting Unavailable Jackson Monk Attending Unavailable Bert Greenwood Attending Unavailable Anastacia Bonilla Referring Unavailable Friend, Marshal Attending Unavailable Yrn Kahn Attending Unavailable Alesha HERNANDEZ, Ani Attending Unavailable Ganta, Misbah Primary Care Unavailable Ganta, Misbah Referring Unavailable Ganta, Misbah Primary Care Unavailable Ganta, Misbah Referring Unavailable Gabby Martinez Attending Unavailable Ganta, Misbah Primary Care Unavailable Alesha HERNANDEZ, Ani Attending Unavailable Ganta, Misbah Referring Unavailable Ganta, Misbah Primary Care Unavailable Gabby Martinez Attending Unavailable Ganta, Misbah Referring Unavailable Ganta, Misbah Primary Care Unavailable Alesha SERVICE COUNTER CASHIER, Ani Attending Unavailable Ganta, Misbah Referring Unavailable Ganta, Misbah Primary Care Unavailable Friend, Marshal Attending Unavailable Friend, Marshal Consulting Unavailable Ganta, Misbah Referring Unavailable Ganta, Misbah Primary Care Unavailable Bridgette Gaxiola Attending Unavailkalyan Eduardo SERVICE COUNTER CASHIER, Ani Referring Unavailable Gonzalo Sebastian Attending Unavailable Ganta, Misbah Primary Care Unavailable Gonzalo Sebastian Attending Unavailable Sudhir Izquierdo Referring Unavailable Ganta, Misbah Primary Care Unavailable Friend, Marshal Attending Unavailable Ganta, Misbah Referring Unavailable Fernando Reyna Attending Unavailable Ganta, Misbah Primary Care Unavailable Ganta, Misbah Primary Care Unavailable Sudhir Grijalva Referring Unavailable Sudhir Grijalva Attending Unavailable Mo Velasco Attending Unavailable Ganta, Misbah Primary Care Unavailable Ganta, Misbah Primary Care Unavailable Ani Eduardo NP Attending Unavailable Anat Gutiérrez NP Referring Unavailable [facility] Primary Care Unavailable Gabby Martinez Referring Unavailable Gabby Martinez Attending Unavailable [facility] Primary Care Unavailable Gabby Martinez Referring Unavailable Gabby Martinez Attending Unavailable Allergies Allergy Classification Reported Allergen(s) Allergy Type Date of Onset Reaction(s) Facility (20 sources) diazePAM; Translations: [DIAZEPAM] Drug Allergy 11-02-19 14 Other: See Comments [facility] Work Phone: (20 sources) HYDROcodone; Translations: [HYDROCODONE] Drug Allergy 08-02-20 20 Itching [facility] Work Phone: (20 sources) Penicillins; Translations: [PENICILLINS] Drug Allergy 07-07-20 06 Other: See Comments [facility] Work Phone: (20 sources) Penicillins Drug Allergy 07-07-20 06 Other: See Comments [facility] Work Phone: (20 sources) Penicillins Allergy to substance 01-17-[address] [facility] (6 sources) Acetaminophen / HYDROcodone; Translations: [ACETAMINOPHEN-HYDR OCODONE] Drug Allergy 10-21-19 23 [facility] Work Phone: (5 sources) Penicillins Propensity to adverse reactions to drug 10-21-19 23 [facility] (1 source) Penicillin Drug Allergy 09-28-18 73 [facility] (20 sources) Sulfamethoxazole / Trimethoprim; Translations: [SULFAMETHOXAZOLE-T RIMETHOPRIM] Drug Allergy 11-29-19 23 [facility] Work Phone: (1 source) Piperacillin / tazobactam; Translations: [Zosyn] Drug Allergy [facility] Work Phone: (20 sources) Sulfamethoxazole Drug Allergy 07-08-20 23 [facility] (20 sources) Trimethoprim Drug Allergy 07-08-20 23 [facility] (20 sources) Clindamycin Drug Allergy 01-02-[address] [facility] (20 sources) Penicillins Drug Allergy 07-07-20 Other: See Comments [facility] Work Phone: (1 source) Clindamycin Drug Allergy 07-12-20 [facility] (1 source) HYDROcodone Drug Allergy 07-12-20 [facility] (1 source) Penicillins Drug allergy (disorder) 07-12-20 [facility] (1 source) Sulfamethoxazole Drug Allergy 07-12-20 [facility] (1 source) Trimethoprim Drug Allergy 07-12-20 [facility] Medications Current Medications Medication Drug Class(es) Dates Sig (Normalized) Sig (Original) [id number] 200 actuat albuterol 0.09 mg/actuat metered dose [...] Comment on above: Home blood pressure monitor Vmuibzgxfh-Haqerumy-Uxicnmjr ol (20 sources) Corticosteroid, beta2-Adrenergic Agonist Start: 04-10-2025 Start: 04-10-2025 End: 04-10-2025 Start: 12-23-2024 End: 04-10-2025 Start: 12-23-2024 celecoxib 200 mg oral capsule (2 sources) Nonsteroidal Anti-inflammatory Drug take 1 capsule by mouth twice daily celecoxib (CELEBREX) 200 mg capsule Take 200 mg by mouth two times a day. Active cholecalciferol 0.05 mg oral capsule (20 sources) Vitamin D Start: 019 End: 025 Start: 12-29-2018 Cholecalcifero l (Vitamin D3) 2,000 [...] mg/ml ophthalmic solution (1 source) Plasma Volume Premium Auditor, Non-Standardized Chemical Allergen Start: 10-29-19 End: 11-28-19 take 1 drop(s) into the eye(s) four times daily Artificial Tears ophthalmic solution ; 1 drop(s) in each eye 4 times a day PRN.ADOD - 2/1Meds to Beds - .Patient Location [address] [address]26 Quantity: 1 Refills: 0 Ordered: [...] Start: 11-07-2024 End: 04-16-2025 Start: 10-28-2022 End: 02-07-2023 take 1 tablet by mouth every six hours as needed hydrOXYzine hydrochloride 25 mg oral tablet ; 1 tab(s) orally every 6 hours, As needed, ITCHING-.ADOD - .10/28Meds to Beds .Patient Location [address] [address]PRN Reason: Anxiety Quantity: 32 Refills: [...] - 10/29/22.Meds to Beds - .Patient Location [address] [address]26 Quantity: 14 Refills: 0 Ordered: [...] 16, 2022 9:33am 20 ml albumin human, jail 250 mg/ml injection (1 source) Human Serum [...] Take 1 tablet by diya once daily. amylase 123464 unt / lipase 86288 unt / protease 03179 unt delayed release oral capsule (20 sources) Start: 11-01-2022 take [id number] capsules by mouth three times daily at mealtime Oxnxme-Ilsbveod-Iff lase (Creon) 24,000-76,000 -120,000 unit capsule,delayed release(DR/EC) Active 1 CAP PO 3 TIMES DAILY WITH MEALS November 01, 2022 1:00am Start: 03-26-2021 End: 01-26-2024 take [id number] capsules by mouth twice daily Cyuysl-Rcgjgdtq-Hdtuxgv (Creon) 24,000-76,000 -120,000 unit capsule,delayed release(DR/EC) Discontinued 2 NMA PO TWICE A DAY November 01, 2022 1:00am January 26, 2024 11:52am Start: 12-10-2019 End: 12-19-2024 Start: 12-10-2019 Lipase-Proteas e-Amylase Active 3 EACH PO TWICE A DAY December 10, 2019 6:59am Comment on above: Take 3 capsules by m outh twice daily with meals. Take 3 capsules by m outh once daily. Jfcdoum-Buwcnm-Usfqwdfs (CREON 10 ORAL) (1 source) Diimkbd-Vbzwdx-G rotea se (CREON 10 ORAL) Take 24,000 [...] INHALATION TWICE A DAY November 14, 2020 12:07pm March 29, 2021 11:33am administer with spacer, rinse mouth after each use Start: 11-14-2020 End: 03-29-2021 Start: 11-14-2020 End: 03-29-2021 Budesonide-Formoterol (Symbi geronimo) 160-4.5 mcg/actuation HFA aerosol inhaler Discontinued 2 NMA INHALATION TWICE A DAY November 14, 2020 1:00am March 29, 2021 11:33am administer with spacer, rinse mouth after each use Start: 11-14-2020 End: 03-29-2021 take 1 puff(s) by mouth twice daily Budesonide-Formoterol (Symbicort) 160-4.5 mcg/actuation HFA aerosol inhaler Discontinued 2 PUFF INHALATION TWICE A DAY November 14, 2020 12:00am March 29, 2021 [...] Comment on above: Take 1 tablet by [facility] three times daily. calcium chloride 0.0014 meq/ml [...] 20, 2019 12:00am April 05, 2020 10:01am Ryhmscszpjb-Pladsmput-Dlhlcw er (20 sources) Anticholinergic, Corticosteroid, beta2-Adrenergic Agonist Start: 06-30-2023 End: 01-26-2024 Start: 06-30-2023 End: 01-26-2024 Bfocstlbotw-Xebgvgecs-Arycko er (Trelegy Ellipta) 100-62.5-25 mcg blister with [...] 06-12-2021 End: 09-10-2021 Start: 06-12-2021 End: 09-10-2021 Qdzstdyrqat-Sgaytqrwd-Unikfv er (Trelegy Ellipta) 100-62.5-25 mcg blister with device Discontinued 1 NMA INHALATION DAILY June 12, 2021 2:44am September 10, 2021 10:54am Start: 06-12-2021 End: 09-10-2021 Qhbnnyzfpmd-Junbszxxg-Mdxlvc er (Trelegy Ellipta) 100-62.5-25 mcg blister with device Discontinued 1 INH INHALATION DAILY June 12, 2021 1:44am September 10, 2021 9:54am Start: 06-12-2021 End: 09-10-2021 Yvemsgbmxef-Eytqohhzd-Vtiohv er (Trelegy Ellipta) 100-62.5-25 mcg blister with device Discontinued 1 INH INHALATION DAILY June 12, 2021 2:44am September 10, 2021 10:54am Start: 03-29-2021 End: 06-12-2021 Zbgnfhoubiq-Vktfilicr-Pmcsoz er (Trelegy Ellipta) 100-62.5-25 mcg blister with device Discontinued 1 INH INHALATION DAILY March 29, 2021 11:35am June 12, 2021 2:44am Start: 03-29-2021 End: 06-12-2021 Start: 03-29-2021 End: 06-12-2021 Llvivicalqh-Fuoonircl-Swyasp er (Trelegy Ellipta) 100-62.5-25 mcg blister with device Discontinued 1 NMA INHALATION DAILY 60 March 29, 2021 12:00am June 12, 2021 2:44am Start: 03-29-2021 End: 06-12-2021 Ztykgnepach-Csyknhkej-Kjlleh er (Trelegy Ellipta) 100-62.5-25 mcg blister with device Discontinued 1 INH INHALATION DAILY 60 March 28, 2021 11:00pm June 12, 2021 1:44am Start: 03-29-2021 End: 06-12-2021 Dwpcsegponx-Uliklivul-Vichkd er (Trelegy Ellipta) 100-62.5-25 mcg blister with device Discontinued 1 INH INHALATION DAILY 60 March 29, 2021 12:00am June 12, 2021 2:44am Start: 04-06-2020 End: 04-15-2023 batfjclhlpo-hywzywode-aahvlg er (TRELEGY ELLIPTA) 100-62.5-25 mcg inhalation powder [...] water and spit out; do not swallow Kzwriomkzkw-Cjkqvtkds-Nigzjc er (20 sources) Start: 08-29-2024 End: 12-23-2024 Start: 08-29-2024 Fluticasone-Um eclidin-Vilanter (Trelegy Ellipta) 200-62.5-25 mcg blister with device Active 1 NMA INHALATION DAILY 3 August 29, 2024 10:29am Start: 05-11-2024 End: 08-29-2024 Start: 05-11-2024 End: 08-29-2024 Owdssylnvyk-Wrvlpwpjw-Gpmhti er (Trelegy Ellipta) 200-62.5-25 mcg blister with device Discontinued 1 NMA INHALATION DAILY 3 May 11, 2024 1:32pm August 29, 2024 10:29am Start: 01-26-2024 End: 05-11-2024 Start: 01-26-2024 End: 05-11-2024 Lyojmmsydpy-Lmaxoabwq-Furlif er (Trelegy Ellipta) 200-62.5-25 mcg blister with [...] on above: Take 2 tablets by mo uth twice daily. hydroCHLOROthiazide 12.5 mg oral capsule [...] mcg/min and titrate per order parameters. nystatin [id number] unt/ml oral suspension (20 sources) Polyene Antifungal [...] - .10/28Meds to Beds - .Patient Location [address] 2026 Quantity: 16 Refills: 0 Ordered: [...] 2.5 ug by inhalation once daily Tiotropium [place] (Spiriva Respimat) 2.5 mcg/actuation mist Discontinued 2 NMA INHALATION daily November 14, 2020 1:00am March 29, 2021 11:33am administer at approximately the same time(s) each day Start: 11-14-2020 End: 03-29-2021 take 1 puff(s) by inhalation once daily Tiotropium [place] (Spiriva Respimat) 2.5 mcg/actuation mist Discontinued 2 [...] infection (2 sources) Viral gastroenteritis due to Parnell-like agent; Translations: [Acute gastroenteropathy due to Parnell agent] Onset: 5 04-10-2025 Episodic Malaise and [...] 3 11-01-2022 Episodic Noninfectious gastroenteritis (2 sources) Colitis; Translations: [Noninfective gastroenteritis and colitis, unspecified] Onset: 5 07-07-2025 Episodic Nutritional deficiencies (1 [...] diarrhea; Translations: [Irritable bowel syndrome, unspecified] Onset: 5 Chronic Other gastrointestinal disorders (20 sources) Diarrhea; Translations: [Diarrhea, unspecified] 12-10-2019 Episodic Other gastrointestinal disorders (18 sources) History of pancreatitis; Translations: [Personal history of other diseases of digestive system] 12-24-2024 Episodic Other gastrointestinal disorders (20 sources) Dysphagia; Translations: [Dysphagia, unspecified] 12-19-2024 Episodic Other gastrointestinal disorders (16 sources) Loose stool; Translations: [Other fecal abnormalities] 04-26-2025 Episodic Other gastrointestinal disorders (1 source) Obstipation; Translations: [Constipation, unspecified] 07-07-2025 Episodic Other gastrointestinal disorders (1 source) Other [...] 01-07-2019 Chronic Other aftercare (1 source) Other penitentiary (current) drug therapy; Translations: [Other penitentiary (current) drug therapy] Onset: 10-29-2022 Episodic Other [...] 07-10-2025 Abdomen/Pelvis W IV Cont ONLY Normal [facility] Absolute lymphocyte countOrd ered By: Joanne Kelly on 07-10-2025 Lymphocytes Auto (Unsp spec) [#/Vol] 2.68 10*3/uL 0.83-4.51 [facility] Anion gap in Serum or Plasma Ordered By: Joanne Kelly on 07-10-2025 Anion gap [Moles/Vol] 8 mmol/L - [facility] Automated lymphocyte count a s percentage of total leukocytesOrdered By: Joanne Kelly on 07-10-2025 Lymphocytes/100 WBC Auto (Unsp spec) 16.7 % Low 19- [facility] BUN/creatinine ratioOrdered By: Joanne Kelly on 07-10-2025 Urea nitrogen/Creatinine [Mass ratio] 14.4 mg/mg - [facility] Basophil percentageOrdered B y: Joanne Kelly on 10-13-2025 Basophils/100 WBC (Bld) 0.6 % 0-1 [facility] Bilirubin Test strip Ql (U)O rdered By: Joanne Kelly on 07-10-2025 Bilirubin Ql (U) Negative Negative [facility] Bilirubin, totalOrdered By: Joanne Kelly on 07-10-2025 Bilirubin [Mass/Vol] 0.26 mg/dL 0.00-1.30 [facility] CBC W/Diff, Automatedon 06-28 Absolute Lymph 2.68 X10 3/uL Normal 0.83-4.51 [facility] Comment on above: Performed By: #### L 100.0100, L500.4050, L501.2450 ####[facility] [address] [place], [address] Absolute Neut 11.4 X10 3/uL High 2.0-7.7 [facility] Comment on above: Performed By: #### L 100.0100, L500.4050, L501.2450 ####[facility] [address] [place], [address] Basophils/100 WBC (Bld) 0.6 % Normal 0-1 [facility] Comment on above: Performed By: #### L 100.0100, L500.4050, L501.2450 ####[facility] [address] [place], [address] Eosinophils/100 WBC (Bld) 3.2 % Normal 0-5 [facility] Comment on above: Performed By: #### L 100.0100, L500.4050, L501.2450 ####[facility] [address] [place], [address] Erythrocyte distribution width (RBC) [Ratio] 13.7 % Normal 11.6-14.6 [facility] Comment on above: Performed By: #### L 100.0100, L500.4050, L501.2450 ####[facility] [address] [place], [address] Hematocrit (Bld) [Volume fraction] 38.4 % Normal 37-47 [facility] Comment on above: Performed By: #### L 100.0100, L500.4050, L501.2450 ####[facility] [address] [place], [address] Hemoglobin (Bld) [Mass/Vol] 11.8 g/dL Low 12.0-15.0 [facility] Comment on above: Performed By: #### L 100.0100, L500.4050, L501.2450 ####[facility] [address] [place], [address] IG% 0.900 Normal 0.0-0.9 [facility] Comment on above: Result Comment: IG% - Immature Granulocytes (promyelocytes, myelocytes andmetamyelocytes) > 1% indicates that a LEFT SHIFT is Present. Performed By: #### L 100.0100, L500.4050, L501.2450 ####[facility] [address] [place], [address] Lymphocytes/100 WBC (Bld) 16.7 % Low 19-41 [facility] Comment on above: Performed By: #### L 100.0100, L500.4050, L501.2450 ####[facility] [address] [place], [address] MCH (RBC) [Entitic mass] 26.9 pg Low 27.0-32.0 [facility] Comment on above: Performed By: #### L 100.0100, L500.4050, L501.2450 ####[facility] [address] [place], [address] MCHC (RBC) [Mass/Vol] 30.7 g/dL Low 32-36 [facility] Comment on above: Performed By: #### L 100.0100, L500.4050, L501.2450 ####[facility] [address] [place], [address] MCV (RBC) [Entitic vol] 87.7 fL Normal 81-99 [facility] Comment on above: Performed By: #### L 100.0100, L500.4050, L501.2450 ####[facility] [address] [place], [address] Monocytes/100 WBC (Bld) 7.5 % Normal 0-10 [facility] Comment on above: Performed By: #### L 100.0100, L500.4050, L501.2450 ####[facility] [address] [place], [address] Neutrophils/100 WBC (Bld) 71.1 % High 47-70 [facility] Comment on above: Performed By: #### L 100.0100, L500.4050, L501.2450 ####[facility] [address] [place], [address] Nucleated RBC (Bld) [#/Vol] 0 10*3/uL Normal 0-5 [facility] Comment on above: Performed By: #### L 100.0100, L500.4050, L501.2450 ####[facility] [address] [place], [address] Platelet mean volume (Bld) [Entitic vol] 9.6 fL Normal 6.2-12.0 [facility] Comment on above: Performed By: #### L 100.0100, L500.4050, L501.2450 ####[facility] [address] [place], [address] Platelets (Bld) [#/Vol] 332 10*3/uL Normal 150-450 [facility] Comment on above: Performed By: #### L 100.0100, L500.4050, L501.2450 ####[facility] [address] [place], [address] RBC (Bld) [#/Vol] 4.38 10*6/uL Normal 4.2-5.4 [facility] Comment on above: Performed By: #### L 100.0100, L500.4050, L501.2450 ####[facility] [address] [place], [address] RDW SD 43.8 fl Normal 35.1-43.9 [facility] Comment on above: Performed By: #### L 100.0100, L500.4050, L501.2450 ####[facility] [address] [place], [address] WBC (Bld) [#/Vol] 16.1 10*3/uL High 4.4-11.0 [facility] Comment on above: Performed By: #### L 100.0100, L500.4050, L501.2450 ####[facility] [address] [place], [address] Carbon dioxide, total [Moles /volume] in Central venous bloodOrdered By: Joanne Kelly on 07-10-2025 CO2 [Moles/Vol] 33.4 mmol/L High 21.0-32.0 [facility] Chloride assayOrdered By: Jamari Kelly on 07-10-2025 Chloride [Moles/Vol] 92 mmol/L Low 98-108 [facility] Comprehensive Metabolic Prof ilon 07-10-2025 Albumin [Mass/Vol] 3.7 g/dL Normal 3.4-4.8 [facility] Comment on above: Performed By: #### L 100.0100, L500.4050, L501.2450 ####[facility] [address] [place], [address] Albumin/Globulin [Mass ratio] 1.1 {ratio} Normal 0.9-2.4 [facility] Comment on above: Performed By: #### L 100.0100, L500.4050, L501.2450 ####[facility] [address] [place], [address] ALK PHOS 147 U/L High 35-104 [facility] Comment on above: Performed By: #### L 100.0100, L500.4050, L501.2450 ####[facility] [address] [place], [address] ALT [Catalytic activity/Vol] 27 U/L Normal <=34 [facility] Comment on above: Performed By: #### L 100.0100, L500.4050, L501.2450 ####[facility] [address] [place], [address] AST [Catalytic activity/Vol] 30 U/L Normal <=31 [facility] Comment on above: Performed By: #### L 100.0100, L500.4050, L501.2450 ####[facility] [address] [place], [address] Bilirubin [Mass/Vol] 0.26 mg/dL Normal 0.00-1.30 [facility] Comment on above: Performed By: #### L 100.0100, L500.4050, L501.2450 ####[facility] [address] [place], [address] BUN/CRE 14.4 RATIO Normal 10-20 [facility] Comment on above: Performed By: #### L 100.0100, L500.4050, L501.2450 ####[facility] [address] [place], [address] Calcium [Mass/Vol] 9.4 mg/dL Normal 7.6-11.0 [facility] Comment on above: Performed By: #### L 100.0100, L500.4050, L501.2450 ####[facility] [address] [place], [address] Chloride [Moles/Vol] 92 mmol/L Low 98-108 [facility] Comment on above: Performed By: #### L 100.0100, L500.4050, L501.2450 ####[facility] [address] [place], [address] CO2 [Moles/Vol] 33.4 mmol/L High 21.0-32.0 [facility] Comment on above: Performed By: #### L 100.0100, L500.4050, L501.2450 ####[facility] [address] [place], [address] Creatinine [Mass/Vol] 0.66 mg/dL Low 0.70-1.20 [facility] Comment on above: Performed By: #### L 100.0100, L500.4050, L501.2450 ####[facility] [address] [place], [address] ECRCL 73.11 ml/min Normal 50-250 [facility] Comment on above: Performed By: #### L 100.0100, L500.4050, L501.2450 ####[facility] [address] [place], [address] GAP 8 Normal 5-15 [facility] Comment on above: Performed By: #### L 100.0100, L500.4050, L501.2450 ####[facility] [address] [place], [address] GFR/1.73 sq M.predicted among non-blacks MDRD (S/P/Bld) [Vol rate/Area] 99 mL/min/{1.73_m2} Normal >60 [facility] Comment on above: Result Comment: mL/m in/1.73m2 CKD-EPI Creatinine Equation (2020) Performed By: #### L 100.0100, L500.4050, L501.2450 ####[facility] [address] [place], [address] Globulin (S) [Mass/Vol] 3.5 g/dL Normal 2.2-4.2 [facility] Comment on above: Performed By: #### L 100.0100, L500.4050, L501.2450 ####[facility] [address] [place], [address] Glucose [Mass/Vol] 95 mg/dL Normal 70-99 [facility] Comment on above: Performed By: #### L 100.0100, L500.4050, L501.2450 ####[facility] [address] [place], [address] Potassium [Moles/Vol] 4.2 mmol/L Normal 3.3-5.1 [facility] Comment on above: Performed By: #### L 100.0100, L500.4050, L501.2450 ####[facility] [address] [place], [address] Sodium [Moles/Vol] 134 mmol/L Normal 133-145 [facility] Comment on above: Performed By: #### L 100.0100, L500.4050, L501.2450 ####[facility] [address] [place], [address] T PROT 7.2 g/dL Normal 5.9-8.4 [facility] Comment on above: Performed By: #### L 100.0100, L500.4050, L501.2450 ####[facility] [address] [place], [address] Urea nitrogen [Mass/Vol] 9 mg/dL Normal 4-19 [facility] Comment on above: Performed By: #### L 100.0100, L500.4050, L501.2450 ####[facility] [address] [place], [address] Emergency Department Summary on 07-10-2025 Emergency Department Summary Normal [facility] Eosinophil percentageOrdered By: Joanne Kelly on 07-10-2025 Eosinophils/100 WBC (Bld) 3.2 % 0-5 [facility] Erythrocyte distribution wid th ratioOrdered By: Joanne Kelly on 07-10-2025 Erythrocyte distribution width (RBC) [Ratio] 13.7 % 11.6-14.6 [facility] Erythrocyte distribution wid th standard deviationOrdered By: Joanne Kelly on 07-10-2025 Erythrocyte distribution width (RBC) [Ratio] 43.8 fl 35.1-43.9 [facility] Glomerular filtration rate ( GFR) estimation/1.73 sq m using serum, plasma, or whole bOrdered By: Joanne Kelly on 07-10-2025 GFR/1.73 sq M.predicted among non-blacks MDRD (S/P/Bld) [Vol rate/Area] 99 mL/min/{1.73_m2} >60 [facility] Hematocrit Auto (Bld) [Volum e fraction]Ordered By: Joanne Kelly on 07-10-2025 Hematocrit (Bld) [Volume fraction] 38.4 % 37-47 [facility] Hemoglobin measurementOrdere d By: Joanne Kelly on 07-10-2025 Hemoglobin (Bld) [Mass/Vol] 11.8 g/dL Low 12.0-15.0 [facility] Immature granulocytes/100 WB C Auto (Bld)Ordered By: Joanne Kelly on 07-10-2025 Immature granulocytes/100 WBC (Bld) 0.900 % 0.0-0.9 [facility] Ketones Test strip Ql (U)Ord ered By: Joanne Kelly on 07-10-2025 Ketones Ql (U) Negative Negative [facility] Lipaseon 07-10-2025 Lipase [Catalytic activity/Vol] 77 U/L High 13-75 [facility] Comment on above: Result Comment: Jenny capellan note:LIPASE revised reference range effective 23.New Lipase methodology. Expected to produce lower valuesthan the previous assay method.NEW Reference Range: 13 - 75 U/L Performed By: #### L 100.0100, L500.4050, L501.2450 ####[facility] [address] [place], [address] MCV (mean corpuscular volume ) determinationOrdered By: Joanne Kelly on 07-10-2025 MCV (RBC) [Entitic vol] 87.7 fL 81-99 [facility] Mean corpuscular hemoglobin (MCH) determinationOrdered By: Joanne Kelly on 07-10-2025 MCH (RBC) [Entitic mass] 26.9 pg Low 27.0-32.0 [facility] Monocyte percentageOrdered B y: Joannerodrigue Kelly on 07-10-2025 Monocytes/100 WBC (Bld) 7.5 % 0-10 [facility] Mucus LM Ql (Urine sed)Order ed By: Joanne Kelly on 07-10-2025 Mucus Ql (Urine sed) 0 SEEN /hpf [facility] Neutrophil percentageOrdered By: Joanne Kelly on 07-10-2025 Neutrophils/100 WBC (Bld) 71.1 % High 47-70 [facility] Nitrite Test strip Ql (U)Ord ered By: Joannerodrigue Kelly on 07-10-2025 Nitrite Ql (U) Negative Negative [facility] No Panel InformationOrdered By: Joanne Kelly on 07-10-2025 30 U/L <32 [facility] Platelet countOrdered By: Jamari rodrigue Kelly on 07-10-2025 Platelets (Bld) [#/Vol] 332 10*3/uL 150-450 [facility] Potassium measurement (mass/ volume)Ordered By: Joanne Kelly on 07-10-2025 Potassium (Unsp spec) [Mass/Vol] 4.2 mmol/L 3.3-5.1 [facility] Protein Test strip Ql (U)Ord ered By: Joanne Kelly on 07-10-2025 Protein Ql (U) 15 mg/dl High Negative [facility] RBC Auto (Bld) [#/Vol]Ordere d By: Joanne Kelly on 07-10-2025 RBC (Bld) [#/Vol] 4.38 10*6/uL 4.2-5.4 [facility] Serum creatinine measurement (mass/volume)Ordered By: Joanne Kelly on 07-10-2025 Creatinine [Mass/Vol] 0.66 mg/dL Low 0.70-1.20 [facility] Serum globulin measurementOr dered By: Joanne Kelly on 07-10-2025 Globulin (S) [Mass/Vol] 3.5 g/dL 2.2-4.2 [facility] Serum glucose measurement (m ass/volume)Ordered By: Joanne Kelly on 07-10-2025 Glucose [Mass/Vol] 95 mg/dL 70-99 [facility] Serum or plasma alanine pimentel otransferase (ALT) measurementOrdered By: Joanne Kelly on 07-10-2025 ALT [Catalytic activity/Vol] 27 U/L <35 [facility] Serum or plasma albumin esthela urement (mass/volume)Ordered By: Joanne Kelly on 07-10-2025 Albumin [Mass/Vol] 3.7 g/dL 3.4-4.8 [facility] Serum or plasma albumin/glob ulin mass ratioOrdered By: Joanne Kelly on 07-10-2025 Albumin/Globulin [Mass ratio] 1.1 {ratio} 0.9-2.4 [facility] Serum or plasma alkaline jose sphatase measurementOrdered By: Joanne Kelly on 07-10-2025 ALP [Catalytic activity/Vol] 147 U/L High 35-104 [facility] Serum or plasma calcium esthela urement (mass/volume)Ordered By: Joanne Kelly on 07-10-2025 Calcium [Mass/Vol] 9.4 mg/dL 7.6-11.0 [facility] Serum or plasma urea nitroge n measurement (mass/volume)Ordered By: Joanne Kelly on 07-10-2025 Urea nitrogen [Mass/Vol] 9 mg/dL 4-19 [facility] Sodium levelOrdered By: Mahamed Kelly on 07-10-2025 Sodium [Moles/Vol] 134 mmol/L 133-145 [facility] Squamous epithelial cells de tection in urine sediment by light microscopyOrdered By: Joanne Kelly on 07-10-2025 Epithelial cells.squamous LM Ql (Urine sed) 0-5 SEEN /hpf 5-10 [facility] Total proteinOrdered By: Brittnee Kelly on 07-10-2025 Protein [Mass/Vol] 7.2 g/dL 5.9-8.4 [facility] Transitional cells detection in urine sediment by light microscopyOrdered By: Joanne Kelly on 07-10-2025 Transitional cells LM Ql (Urine sed) 0-5 SEEN /hpf 0-5 [facility] Urinalysis, Completeon 07-10 EPI,SQUAMOUS 0-5 SEEN Normal 5-10 [facility] Comment on above: Order Comment: CLEAN CATCH Performed By: #### L 400.0001 ####[facility] [address] [place], [address] EPI,TRANSITION 0-5 SEEN Normal 0-5 [facility] Comment on above: Order Comment: CLEAN CATCH Performed By: #### L 400.0001 ####[facility] [address] [place], [address] RBC 0-5 SEEN Normal 0-5 [facility] Comment on above: Order Comment: CLEAN CATCH Performed By: #### L 400.0001 ####[facility] [address] [place], [address] WBC 0-5 SEEN Normal 0-5 [facility] Comment on above: Order Comment: CLEAN CATCH Performed By: #### L 400.0001 ####[facility] [address] [place], [address] BACTERIA 0 SEEN Normal None Seen [facility] Comment on above: Order Comment: CLEAN CATCH Performed By: #### L 400.0001 ####[facility] [address] [place], [address] Mucus Ql (Urine sed) 0 SEEN Normal [facility] Comment on above: Order Comment: CLEAN CATCH Performed By: #### L 400.0001 ####[facility] [address] [place], [address] Urine clarityOrdered By: Brittnee Kelly on 07-10-2025 Clarity (U) Clear Clear [facility] Urine color determinationOrd ered By: Joanne Kelly on 07-10-2025 Color (U) Yellow Yellow [facility] Urine glucose detectionOrder ed By: Joanne Kelly on 07-10-2025 Glucose Ql (U) Normal mg/dl Normal [facility] Urine leukocyte esterase det ection by dipstickOrdered By: Joanne Kelly on 07-10-2025 Leukocyte esterase Test strip Ql (U) 25 /ul High Negative [facility] Urine pHOrdered By: Joanne steele on 07-10-2025 pH (U) 6.0 [pH] 5.0 - 8.0 [facility] Urine sediment bacteria coun t by microscopy (number/high power field)Ordered By: Joanne Kelly on 07-10-2025 Bacteria LM.HPF (Urine sed) [#/Area] 0 /[HPF] None Seen [facility] Urine specific gravity measu rementOrdered By: Joanne Kelly on 07-10-2025 Specific gravity (U) [Rel density] 1.010 1.002-1.030 [facility] Urine urobilinogen measureme ntOrdered By: Joanne Kelly on 07-10-2025 Urobilinogen Ql (U) Normal mg/dl Normal [facility] White blood cell (WBC) count Ordered By: Joanne Kelly on 07-10-2025 WBC (Bld) [#/Vol] 16.1 10*3/uL High 4.4-11.0 [facility] White blood cell countOrdere d By: Joanne Kelly on 07-10-2025 White blood cell count 0-5 SEEN /hpf 0-5 [facility] Emergency Department Summary on 07-07-2025 Emergency Department Summary Normal [facility] Abdomen/Pelvis W IV Cont ONL Yon 07-06-2025 Abdomen/Pelvis W IV Cont ONLY Normal [facility] Absolute lymphocyte countOrd ered By: ED PROVIDER on 07-06-2025 Lymphocytes Auto (Unsp spec) [#/Vol] 1.36 10*3/uL 0.83-4.51 [facility] Anion gap in Serum or Plasma Ordered By: ED PROVIDER on 07-06-2025 Anion gap [Moles/Vol] 15 mmol/L 5-15 [facility] Automated lymphocyte count a s percentage of total leukocytesOrdered By: ED PROVIDER on 07-06-2025 Lymphocytes/100 WBC Auto (Unsp spec) 7.4 % Low 19-41 [facility] BUN/creatinine ratioOrdered By: ED PROVIDER on 07-06-2025 Urea nitrogen/Creatinine [Mass ratio] 8.0 mg/mg Low 10-20 [facility] Basophil percentageOrdered B y: ED PROVIDER on 07-06-2025 Basophils/100 WBC (Bld) 0.4 % 0-1 [facility] Bilirubin, totalOrdered By: ED PROVIDER on 07-06-2025 Bilirubin [Mass/Vol] 0.18 mg/dL 0.00-1.30 [facility] Blood manual differential co mment interpretation (narrative result)Ordered By: Edmund Tang on 07-06-2025 Manual differential comment Geovany (Bld) [Interp] SCANNED [facility] CBC W/Diff, Automatedon PLT EST ADEQUATE Normal ADEQ [facility] Comment on above: Performed By: #### L 100.0100, L501.2450, L500.4050 ####[facility] [address] [facility] [place], [place], [id number] SMEAR COMMENT SCANNED Normal [facility] Comment on above: Performed By: #### L 100.0100, L501.2450, L500.4050 ####[facility] [address] [place], [place], [id number] Carbon dioxide, total [Moles /volume] in Central venous bloodOrdered By: ED PROVIDER on 07-06-2025 CO2 [Moles/Vol] 28.7 mmol/L 21.0-32.0 [facility] Chloride assayOrdered By: ED PROVIDER on 07-06-2025 Chloride [Moles/Vol] 88 mmol/L Low 98-108 [facility] Comprehensive Metabolic Prof ilon 07-06-2025 Albumin [Mass/Vol] 4.3 g/dL Normal 3.4-4.8 [facility] Comment on above: Performed By: #### L 100.0100, L501.2450, L500.4050 ####[facility] [address] [place], [address] Albumin/Globulin [Mass ratio] 1.1 {ratio} Normal 0.9-2.4 [facility] Comment on above: Performed By: #### L 100.0100, L501.2450, L500.4050 ####[facility] [address] [place], [address] ALK PHOS 151 U/L High 35-104 [facility] Comment on above: Performed By: #### L 100.0100, L501.2450, L500.4050 ####[facility] [address] [place], [address] ALT [Catalytic activity/Vol] 10 U/L Normal <=34 [facility] Comment on above: Performed By: #### L 100.0100, L501.2450, L500.4050 ####[facility] [address] [place], [address] AST [Catalytic activity/Vol] 24 U/L Normal <=31 [facility] Comment on above: Performed By: #### L 100.0100, L501.2450, L500.4050 ####[facility] [address] [place], [address] Bilirubin [Mass/Vol] 0.18 mg/dL Normal 0.00-1.30 [facility] Comment on above: Performed By: #### L 100.0100, L501.2450, L500.4050 ####[facility] [address] [place], [address] BUN/CRE 8.0 RATIO Low 10-20 [facility] Comment on above: Performed By: #### L 100.0100, L501.2450, L500.4050 ####[facility] [address] [place], [address] Calcium [Mass/Vol] 9.0 mg/dL Normal 7.6-11.0 [facility] Comment on above: Performed By: #### L 100.0100, L501.2450, L500.4050 ####[facility] [address] [place], [address] Chloride [Moles/Vol] 88 mmol/L Low 98-108 [facility] Comment on above: Performed By: #### L 100.0100, L501.2450, L500.4050 ####[facility] [address] [place], [address] CO2 [Moles/Vol] 28.7 mmol/L Normal 21.0-32.0 [facility] Comment on above: Performed By: #### L 100.0100, L501.2450, L500.4050 ####[facility] [address] [place], [address] Creatinine [Mass/Vol] 0.79 mg/dL Normal 0.70-1.20 [facility] Comment on above: Performed By: #### L 100.0100, L501.2450, L500.4050 ####[facility] [address] [place], [address] ECRCL 61.08 ml/min Normal 50-250 [facility] Comment on above: Performed By: #### L 100.0100, L501.2450, L500.4050 ####[facility] [address] [place], [address] GAP 15 Normal 5-15 [facility] Comment on above: Performed By: #### L 100.0100, L501.2450, L500.4050 ####[facility] [address] [place], [address] GFR/1.73 sq M.predicted among non-blacks MDRD (S/P/Bld) [Vol rate/Area] 85 mL/min/{1.73_m2} Normal >60 [facility] Comment on above: Result Comment: mL/m in/1.73m2 CKD-EPI Creatinine Equation (2020) Performed By: #### L 100.0100, L501.2450, L500.4050 ####[facility] [address] [place], [address] Globulin (S) [Mass/Vol] 3.8 g/dL Normal 2.2-4.2 [facility] Comment on above: Performed By: #### L 100.0100, L501.2450, L500.4050 ####[facility] [address] [place], [address] Glucose [Mass/Vol] 254 mg/dL High 70-99 [facility] Comment on above: Performed By: #### L 100.0100, L501.2450, L500.4050 ####[facility] [address] [place], [address] Potassium [Moles/Vol] 3.9 mmol/L Normal 3.3-5.1 [facility] Comment on above: Performed By: #### L 100.0100, L501.2450, L500.4050 ####[facility] [address] [place], [address] Sodium [Moles/Vol] 132 mmol/L Low 133-145 [facility] Comment on above: Performed By: #### L 100.0100, L501.2450, L500.4050 ####[facility] [address] [place], [address] T PROT 8.1 g/dL Normal 5.9-8.4 [facility] Comment on above: Performed By: #### L 100.0100, L501.2450, L500.4050 ####[facility] [address] [place], [address] Urea nitrogen [Mass/Vol] 6 mg/dL Normal 4-19 [facility] Comment on above: Performed By: #### L 100.0100, L501.2450, L500.4050 ####[facility] [address] [place], [address] ERCP Biliary/Pancreason ERCP Biliary/Pancreas Normal [facility] ERCP Reporton 07-06-2025 ERCP Report Normal [facility] Eosinophil percentageOrdered By: ED PROVIDER on 07-06-2025 Eosinophils/100 WBC (Bld) 18.3 % High 0-5 [facility] Erythrocyte distribution wid th ratioOrdered By: ED PROVIDER on 07-06-2025 Erythrocyte distribution width (RBC) [Ratio] 13.6 % 11.6-14.6 [facility] Erythrocyte distribution wid th standard deviationOrdered By: ED PROVIDER on 07-06-2025 Erythrocyte distribution width (RBC) [Ratio] 42.5 fl 35.1-43.9 [facility] Glomerular filtration rate ( GFR) estimation/1.73 sq m using serum, plasma, or whole bOrdered By: ED PROVIDER on 07-06-2025 GFR/1.73 sq M.predicted among non-blacks MDRD (S/P/Bld) [Vol rate/Area] 85 mL/min/{1.73_m2} >60 [facility] Hematocrit Auto (Bld) [Volum e fraction]Ordered By: ED PROVIDER on 07-06-2025 Hematocrit (Bld) [Volume fraction] 39.3 % 37-47 [facility] Hemoglobin measurementOrdere d By: ED PROVIDER on 07-06-2025 Hemoglobin (Bld) [Mass/Vol] 12.2 g/dL 12.0-15.0 [facility] Immature granulocytes/100 WB C Auto (Bld)Ordered By: ED PROVIDER on 07-06-2025 Immature granulocytes/100 WBC (Bld) 0.500 % 0.0-0.9 [facility] Lipaseon 07-06-2025 Lipase [Catalytic activity/Vol] 83 U/L High 13-75 [facility] Comment on above: Result Comment: Jenny capellan note:LIPASE revised reference range effective 23.New Lipase methodology. Expected to produce lower valuesthan the previous assay method.NEW Reference Range: 13 - 75 U/L Performed By: #### L 100.0100, L501.2450, L500.4050 ####[facility] [address] [place], [address] MCV (mean corpuscular volume ) determinationOrdered By: ED PROVIDER on 07-06-2025 MCV (RBC) [Entitic vol] 85.4 fL 81-99 [facility] MR/OP.PROVATon 07-06-2025 MR/OP.PROVAT Normal [facility] MR/POSTOP.ANEon 07-06-2025 MR/POSTOP.ANE Normal [facility] MR/DUWFNSGG5xo 07-06-2025 MR/POSTOPAN2 Normal [facility] Mean corpuscular hemoglobin (MCH) determinationOrdered By: ED PROVIDER on 07-06-2025 MCH (RBC) [Entitic mass] 26.5 pg Low 27.0-32.0 [facility] Monocyte percentageOrdered B y: ED PROVIDER on 07-06-2025 Monocytes/100 WBC (Bld) 1.1 % 0-10 [facility] Neutrophil percentageOrdered By: ED PROVIDER on 07-06-2025 Neutrophils/100 WBC (Bld) 72.3 % High 47-70 [facility] No Panel InformationOrdered By: ED PROVIDER on 07-06-2025 24 U/L <32 [facility] O.R. Fluoro for C-Les 10-0 -2024 O.R. Fluoro for C-Arm Normal [facility] Platelet countOrdered By: ED PROVIDER on 07-06-2025 Platelets (Bld) [#/Vol] 388 10*3/uL 150-450 [facility] Platelet estimateOrdered By: Edmund Tang on 07-06-2025 Platelets LM Ql (Bld) ADEQUATE ADEQ [facility] Potassium measurement (mass/ volume)Ordered By: ED PROVIDER on 07-06-2025 Potassium (Unsp spec) [Mass/Vol] 3.9 mmol/L 3.3-5.1 [facility] RBC Auto (Bld) [#/Vol]Ordere d By: ED PROVIDER on 07-06-2025 RBC (Bld) [#/Vol] 4.60 10*6/uL 4.2-5.4 [facility] Serum creatinine measurement (mass/volume)Ordered By: ED PROVIDER on 07-06-2025 Creatinine [Mass/Vol] 0.79 mg/dL 0.70-1.20 [facility] Serum globulin measurementOr dered By: ED PROVIDER on 07-06-2025 Globulin (S) [Mass/Vol] 3.8 g/dL 2.2-4.2 [facility] Serum glucose measurement (m ass/volume)Ordered By: ED PROVIDER on 07-06-2025 Glucose [Mass/Vol] 254 mg/dL High 70-99 [facility] Serum or plasma alanine pimentel otransferase (ALT) measurementOrdered By: ED PROVIDER on 07-06-2025 ALT [Catalytic activity/Vol] 10 U/L <35 [facility] Serum or plasma albumin esthela urement (mass/volume)Ordered By: ED PROVIDER on 07-06-2025 Albumin [Mass/Vol] 4.3 g/dL 3.4-4.8 [facility] Serum or plasma albumin/glob ulin mass ratioOrdered By: ED PROVIDER on 07-06-2025 Albumin/Globulin [Mass ratio] 1.1 {ratio} 0.9-2.4 [facility] Serum or plasma alkaline jose sphatase measurementOrdered By: ED PROVIDER on 07-06-2025 ALP [Catalytic activity/Vol] 151 U/L High 35-104 [facility] Serum or plasma calcium esthela urement (mass/volume)Ordered By: ED PROVIDER on 07-06-2025 Calcium [Mass/Vol] 9.0 mg/dL 7.6-11.0 [facility] Serum or plasma urea nitroge n measurement (mass/volume)Ordered By: ED PROVIDER on 07-06-2025 Urea nitrogen [Mass/Vol] 6 mg/dL 4-19 [facility] Sodium levelOrdered By: CARINA PEGUERO on 07-06-2025 Sodium [Moles/Vol] 132 mmol/L Low 133-145 [facility] Special Stain Group IIon Special Stain Group II Normal [facility] Comment on above: Performed By: #### P SSII ####[facility] [address] [place], [address] Total proteinOrdered By: ED PROVIDER on 07-06-2025 Protein [Mass/Vol] 8.1 g/dL 5.9-8.4 [facility] White blood cell (WBC) count Ordered By: ED PROVIDER on 07-06-2025 WBC (Bld) [#/Vol] 18.4 10*3/uL High 4.4-11.0 [facility] MR/PAT.ANEon 07-04-2025 MR/PAT.ANE Normal [facility] NURSING PROGon 07-03-2025 NURSING PROG HNO ID: [id number] Author: JAELYN KOTHARI RN Service: ? Author Type: Registered Nurse Type: Nursing Progress Note Filed: 07/03/2025 16:18 Note Text: Attempted to reach the patient at the contact number that they provided [phone] (home) . Unable to speak with patient or leave a voicemail.The following information was sent to their my chart: Date of procedure, location and report time A message was left informing the patient/patient service representative they must have a responsible [...] Number to call with questions or concerns [phone] Number to call to cancel their procedure [phone] Jaelyn Kothari RN Normal [facility] CNOVon 05-31-2025 CNOV Office Visit (INTMWS ) -------- GRACIE BANUELOS ([id number]) 1965 F Date Time Provider Department 05/31/25 10:40 AM SOILA EASTON During your visit today, we recorded the following information about you: Pulse Respiration Blood pressure Weight 78/minute 16/minute 128/80 56.2 kg Soila Easton APRN.COMPANY MARKER 05/31/2025 1:42 PM Signed CC: Patient presents with: Recheck: 1 month follow up HPI Gracie Banuelos is a 60 year old female who presents today for follow up on chronic pancreatitis, COPD, and pain., Recording using RUN software for draft documentation of the visit was discussed with the patient/authorized service representative; all questions welcomed and answered. Patient/authorized service representative agreed to proceed Chronic Pancreatitis: - Gracie Banuelos was hospitalized in March for pancreatitis; stent placed, still in situ. - Followed by Dr. Segura at [facility]; stent removal planned for June. - Seen by Dr. Segura's PA, Brandon, with next appointment in June. - Hospitalized [...] Stage 3 severe COPD by GOLD classification ([facility]) 2018 Tobacco use greater than 30 years [...] mouth d (more content not included)... Normal [facility] L3410.9992on 05-30-2025 [facility] Misc. COMMENT Normal . [facility] Comment on above: Order Comment: [id number] 0MED TOX UR RMT Result Comment: Test Ordered: [id number] O57-Eoksbk+RH7Tfhuhpipnzzx Screen, Urine Negative ng/mL UI Reference Range: Kexhgg=290Opqnrdsagiq test includes Amphetamine and Methamphetamine.Barbiturates Negative ng/mL UI Reference Range: Wlknvq=564Mcjanrawbufiguy Negative ng/mL UI Reference Range: Lwrlmc=187Krhrpop (Metab.), Urine Negative ng/mL UI Reference Range: Zsjtln=337Jtjdfmm Negative ng/mL UI Reference Range: Xpvrdv=555Jiawut test includes Codeine, Morphine, Hydromorphone, Hydrocodone.6-Acetylmorphine, Urine Negative ng/mL UI Reference Range: Cutoff=10Oxycodone/Oxymorphone, Urine Negative ng/mL UI Reference Range: Ukdlyw=803Jyrf includes Oxycodone and OxymorphonePCP, Urine Negative ng/mL UI Reference Range: Cutoff=25Methadone Screen, Urine Negative ng/mL UI Reference Range: Ksgjaw=016Qpzwrauaqrre, Urine Negative ng/mL UI Reference Range: Kzwhfr=888Gjcmwgla, Urine Negative ng/mL UI Reference Range: Cutoff=2.0Test includes Fentanyl and NorfentanylThis test was developed and its performance characteristicsdetermined by [facility]. It has not been cleared orapproved by the Food and Drug Administration.Tramadol Note: ng/mL UI See Final Results Reference Range: Fjyyip=407Wuoefuro Positive [A ] UI Reference Range: Deioaf=957Dbzajzap Conf, MS, UR 713 ng/mL UI Reference Range: Swqgba=106Cswhwbaecdmeb, Urine Negative ng/mL UI Reference Range: Cutoff=10Creatinine, Urine 26.4 mg/dL UI Reference Range: 20.0-300.0pH, Urine 7.3 UI Reference Range: 4.5-8.9Performed at: UI - [facility] [id number] [place], [place] [id number] Director: Garrett Harrell PhD, Phone: [phone] at: CB - [facility] [address] [id number] Director: Tj Mendoza PhD, Phone: [phone] Performed By: #### L 505.5000, L3410.9992 ####[facility] [address] [facility] [place], [place], [address] Amphetamine detection with 1 000 ng/mL as cutoffOrdered By: Sudhir Grijalva on 05-24-2025 Amphetamines Screen method >1000 ng/mL Ql (U) Negative < 200 ng/mL [facility] Emergency Department Summary on 05-24-2025 Emergency Department Summary Normal [facility] Lipid 1996 panelon Cholesterol [Mass/Vol] 179 mg/dL Normal <200 Cl [facility] Comment on above: Order Comment: Speci men Type: BLOOD SPECIMEN Ordering Facility: [facility] Address: [address] [place] [address] Result Comment: <200 mg/dL, Desirable 200-239 mg/dL, Borderline high >239 mg/dL, High Performed By: #### 2 4331-1 #### [facility] CLIA [id number] [address] [place] [address] [place] [address] [place] Cholesterol in HDL [Mass/Vol] 51 mg/dL Normal >39 [facility] Comment on above: Order Comment: Speci men Type: BLOOD SPECIMEN Ordering Facility: [facility] Address: [address] [place] [address] Result Comment: 40-5 9 mg/dL, Acceptable >59 mg/dL, High: Negative risk factor for coronary heart disease <40 mg/dL, Low: Positive risk factor for coronary heart disease Performed By: #### 2 4331-1 #### [facility] CLIA [id number] [address] [place] [address] [place] Cholesterol in LDL [Mass/Vol] 97 mg/dL Normal <100 [facility] Comment on above: Order Comment: Speci men Type: BLOOD SPECIMEN Ordering Facility: [facility] Address: [address] [place] [address] Result Comment: <100 mg/dL, Optimal 100-129 mg/dL, Near optimal/above optimal 130-159 mg/dL, Borderline high 160-189 mg/dL, High >189 mg/dL, Very high Secondary prevention optimal LDL Cholesterol levels are recommended to be <70 mg/dL LDL cholesterol is calculated using the Pineda-NIH equation. Performed By: #### 2 4331-1 #### [facility] IA [id number] [address] [place] [address] [place] Cholesterol in LDL/Cholesterol in HDL [Mass ratio] 1.90 {ratio} Normal <2.54 [facility] Comment on above: Order Comment: Speci men Type: BLOOD SPECIMEN Ordering Facility: [facility] Address: [address] [place] [address] Result Comment: Teri regan: 1. National Cholesterol Education Program ATP III Guideline At-A-Glance Quick Desk Reference: National Heart, Lung, and Blood [place]. National Institutes of Health. 2001: NIH Publication No. 01-3305. 2. An International Atherosclerosis Society position paper: global recommendations for the management of dyslipidemia: executive summary, Atherosclerosis. 2014: 232(2):410-413. Performed By: #### 2 4331-1 #### [facility] IA [id number] [address] [place] [address] [place] Cholesterol in VLDL [Mass/Vol] 29 mg/dL Normal <30 [facility] Comment on above: Order Comment: Kettyi men Type: BLOOD SPECIMEN Ordering Facility: [facility] Address: [address] [place] [address] Performed By: #### 2 4331-1 #### [facility] CLIA [id number] [address] [place], [place] [address] [place] Cholesterol non HDL [Mass/Vol] 128 mg/dL Normal <130 [facility] Comment on above: Order Comment: Speci men Type: BLOOD SPECIMEN Ordering Facility: [facility] Address: [address] [place] [address] Result Comment: <130 mg/dL, Optimal 130-159 mg/dL, Near optimal/above optimal 160-189 mg/dL, Borderline high 190-219 mg/dL, High >219 mg/dL, Very high Secondary prevention optimal non HDL Cholesterol levels are recommended to be <100 mg/dL Performed By: #### 2 4331-1 #### [facility] CLIA [id number] [address] [place] [address] [place] Cholesterol.total/Chol esterol in HDL [Mass ratio] 3.51 {ratio} Normal <5.10 [facility] Comment on above: Order Comment: Speci men Type: BLOOD SPECIMEN Ordering Facility: [facility] Address: [address] [place] [address] Performed By: #### 2 4331-1 #### [facility] CLIA [id number] [address] [place] [address] [place] FASTING TIME 12 hrs Normal [facility] Comment on above: Order Comment: Speci men Type: BLOOD SPECIMEN Ordering Facility: [facility] Address: [address] [place] [address] Performed By: #### 2 4331-1 #### [facility] CLIA [id number] [address] [place] [address] [place] Triglyceride [Mass/Vol] 178 mg/dL High <150 [facility] Comment on above: Order Comment: Speci men Type: BLOOD SPECIMEN Ordering Facility: [facility] Address: [address] [place], [place] [address] Result Comment: <150 mg/dL, Normal 150-199 mg/dL, Borderline high 200-499 mg/dL, High >499 mg/dL, Very high Performed By: #### 2 4331-1 #### [facility] CLIA [id number] [address] [place] [address] [place] No Panel InformationOrdered By: Sudhir Grijalva on 05-24-2025 Negative < 200 ng/mL [facility] Pulmonary Visit Reporton Pulmonary Visit Report Normal [facility] Screening urine fentanyl samir surementOrdered By: Sudhir Grijalva on 05-24-2025 fentaNYL Screen Ql (U) Negative <5 ng/mL [facility] Urine Drug Screen (VISTA)on 05-24-2025 AMPHETAMINES Negative Normal <1000 ng/mL [facility] Comment on above: Order Comment: UNK Performed By: #### L 505.5000, L3410.9992 ####[facility] [address] [facility] [address] BARBITIURATES Negative Normal < 200 ng/mL [facility] Comment on above: Order Comment: UNK Performed By: #### L 505.5000, L3410.9992 ####[facility] [address] [place], [address] BENZODIAZIPINE Positive Normal < 200 ng/mL [facility] Comment on above: Order Comment: UNK Result Comment: If c onfirmation testing is needed, a separate order will berequired to send out testing to the reference laboratory. Performed By: #### L 505.5000, L3410.9992 ####[facility] [address] [place], [address] BUP Ur Drug Scr Negative Normal < 200 ng/mL [facility] Comment on above: Order Comment: UNK Performed By: #### L 505.5000, L3410.9992 ####[facility] [address] [place], [address] COCAINE Negative Normal < 300 ng/mL [facility] Comment on above: Order Comment: UNK Performed By: #### L 505.5000, L3410.9992 ####[facility] [address] [place] [id number] Fentanyl Negative Normal <5 ng/mL [facility] Comment on above: Order Comment: UNK Result [...] UTCA Performed By: #### L 505.5000, L3410.9992 ####[facility] [address] [place] [address] METHADONE Negative Normal < 300 ng/mL [facility] Comment on above: Order Comment: UNK Performed By: #### L 505.5000, L3410.9992 ####[facility] [address] [place] [address] OPIATES Negative Normal < 300 ng/mL [facility] Comment on above: Order Comment: UNK Performed By: #### L 505.5000, L3410.9992 ####[facility] [address] [place] [address] OXYCODONE Negative Normal < 100 ng/mL [facility] Comment on above: Order Comment: UNK Performed By: #### L 505.5000, L3410.9992 ####[facility] [address] [place] [address] PCP Negative Normal < 25 ng/mL [facility] Comment on above: Order Comment: UNK Performed By: #### L 505.5000, L3410.9992 ####[facility] [address] [place], [address] THC Negative Normal < 50 ng/mL [facility] Comment on above: Order Comment: UNK Performed By: #### L 505.5000, L3410.9992 ####[facility] [address] [place], [address] Urine phencyclidine (PCP) de tectionOrdered By: Sudhir Grijalva on 05-24-2025 Phencyclidine Ql (U) Negative < 25 ng/mL [facility] US ARM ARTERIAL UNL VAS LABo n 05-18-2025 US ARM ARTERIAL UNL VAS LAB Non-Invasive Vascular Laboratory [facility] Upper Extremity Arterial Duplex Bilateral/Complete Date of [...] waveform noted throughout. Technologist: Keerthi Shah RVT, [facility] Ordering physician: MISBAH ELKINS Interpreting physician: GLADIS Byrne DO Final CC [facility] Image : [id number] ID See Link below for Image Normal [facility] US CAROTID ARTERIES LUZMA VAS LABon 05-18-2025 US CAROTID ARTERIES [facility] Non-Invasive Vascular Laboratory [facility] Carotid Duplex Bilateral/Complete Date of service/time: 05/18/2025 [...] more proximal stenosis. Technologist: Keerthi Shah RVT, [facility] Ordering physician: MISBAH ELKINS Interpreting physician: GLADIS Byrne DO Final CC [facility] : [id number] ID See Link below for Image Normal [facility] Abdomen/Pelvis W IV Cont ONL Yon 05-10-2025 Abdomen/Pelvis W IV Cont ONLY Normal [facility] Absolute lymphocyte countOrd ered By: Joannerodrigue Kelly on 05-10-2025 Lymphocytes Auto (Unsp spec) [#/Vol] 3.42 10*3/uL 0.83-4.51 [facility] Anion gap in Serum or Plasma Ordered By: Joanne Kelly on 05-10-2025 Anion gap [Moles/Vol] 12 mmol/L 5-15 [facility] Automated lymphocyte count a s percentage of total leukocytesOrdered By: Joanne Kelly on 05-10-2025 Lymphocytes/100 WBC Auto (Unsp spec) 21.2 % 19-41 [facility] BUN/creatinine ratioOrdered By: Joanne Kelly on 05-10-2025 Urea nitrogen/Creatinine [Mass ratio] 6.7 mg/mg Low 10-20 [facility] Basophil percentageOrdered B y: Joanne Kelly on 05-10-2025 Basophils/100 WBC (Bld) 1.0 % 0-1 [facility] Bilirubin, totalOrdered By: Joanne Kelly on 05-10-2025 Bilirubin [Mass/Vol] mg/dL 0.00-1.30 [facility] Blood manual differential co mment interpretation (narrative result)Ordered By: Joanne Kelly on 05-10-2025 Manual differential comment Geovany (Bld) [Interp] SCANNED [facility] CBC + diff autoon 05-10-2025 CBC W Auto Differential panel (Bld) [facility] CBC W/Diff, Automatedon 04-28 SMEAR COMMENT SCANNED Normal [facility] Comment on above: Performed By: #### L 100.0100 ####[facility] [address] [place], [address] Absolute Neut Normal 2.0-7.7 [facility] Comment on above: Result Comment: DUP Performed By: #### L 500.4050, L100.0100 ####[facility] [address] [place], [address] HCT Normal 37-47 [facility] Comment on above: Result Comment: DUP Performed By: #### L 500.4050, L100.0100 ####[facility] [address] [place], [address] HGB Normal 12.0-15.0 [facility] Comment on above: Result Comment: DUP Performed By: #### L 500.4050, L100.0100 ####[facility] [address] [place], [address] MCH Normal 27.0-32.0 [facility] Comment on above: Result Comment: DUP Performed By: #### L 500.4050, L100.0100 ####[facility] [address] [place], [address] MCHC Normal 32-36 [facility] Comment on above: Result Comment: DUP Performed By: #### L 500.4050, L100.0100 ####[facility] [address] [place], [address] MCV Normal 81-99 [facility] Comment on above: Result Comment: DUP Performed By: #### L 500.4050, L100.0100 ####[facility] [address] [place], [address] NEUT% Normal 47-70 [facility] Comment on above: Result Comment: DUP Performed By: #### L 500.4050, L100.0100 ####[facility] [address] [place], [address] PLT Normal 150-450 [facility] Comment on above: Result Comment: DUP Performed By: #### L 500.4050, L100.0100 ####[facility] [address] [place], [address] RBC Normal 4.2-5.4 [facility] Comment on above: Result Comment: DUP Performed By: #### L 500.4050, L100.0100 ####[facility] [address] [place], [address] RDW CV Normal 11.6-14.6 [facility] Comment on above: Result Comment: DUP Performed By: #### L 500.4050, L100.0100 ####[facility] [address] [place], [address] RDW SD Normal 35.1-43.9 [facility] Comment on above: Result Comment: DUP Performed By: #### L 500.4050, L100.0100 ####[facility] [address] [place], [address] WBC Normal 4.4-11.0 [facility] Comment on above: Result Comment: DUP Performed By: #### L 500.4050, L100.0100 ####[facility] [address] [place], [address] Absolute Neut Normal 2.0-7.7 [facility] Comment on above: Result Comment: This specimen has been REJECTED due to Laboratory criteria:Clotted.SCOTTY WAGONER has been notified of need of recollection.05/10/252118 Tamara Reg Performed By: #### L 100.0100, L500.4050, L501.2450 ####[facility] [address] [place], [address] HCT Normal 37-47 [facility] Comment on above: Result Comment: This specimen has been REJECTED due to Laboratory criteria:Clotted.SCOTTY WAGONER has been notified of need of recollection.05/10/252118 Tamara Reg Performed By: #### L 100.0100, L500.4050, L501.2450 ####[facility] [address] [place], [address] HGB Normal 12.0-15.0 [facility] Comment on above: Result Comment: This specimen has been REJECTED due to Laboratory criteria:Clotted.SCOTTY WAGONER has been notified of need of recollection.05/10/252118 Tamara Reg Performed By: #### L 100.0100, L500.4050, L501.2450 ####[facility] [address] [place], [address] MCH Normal 27.0-32.0 [facility] Comment on above: Result Comment: This specimen has been REJECTED due to Laboratory criteria:Clotted.SCOTTY CIARAN has been notified of need of recollection.05/10/252118 Tamara Reg Performed By: #### L 100.0100, L500.4050, L501.2450 ####[facility] [address] [place], [address] MCHC Normal 32-36 [facility] Comment on above: Result Comment: This specimen has been REJECTED due to Laboratory criteria:Clotted.SCOTTY WAGONER has been notified of need of recollection.05/10/252118 Tamara Reg Performed By: #### L 100.0100, L500.4050, L501.2450 ####[facility] [address] [place], [address] MCV Normal 81-99 [facility] Comment on above: Result Comment: This specimen has been REJECTED due to Laboratory criteria:Clotted.SCOTTY CIARAN has been notified of need of recollection.05/10/252118 Tamara Reg Performed By: #### L 100.0100, L500.4050, L501.2450 ####[facility] [address] [place], [address] NEUT% Normal 47-70 [facility] Comment on above: Result Comment: This specimen has been REJECTED due to Laboratory criteria:Clotted.SCOTTY CIARAN has been notified of need of recollection.05/10/252118 Tamara Reg Performed By: #### L 100.0100, L500.4050, L501.2450 ####[facility] [address] [place], [address] PLT Normal 150-450 [facility] Comment on above: Result Comment: This specimen has been REJECTED due to Laboratory criteria:Clotted.SCOTTY WAGONER has been notified of need of recollection.05/10/252118 Tamara Reg Performed By: #### L 100.0100, L500.4050, L501.2450 ####[facility] [address] [place], [address] RBC Normal 4.2-5.4 [facility] Comment on above: Result Comment: This specimen has been REJECTED due to Laboratory criteria:Clotted.SCOTTY WAGONER has been notified of need of recollection.05/10/252118 Tamara Reg Performed By: #### L 100.0100, L500.4050, L501.2450 ####[facility] [address] [place], [address] RDW CV Normal 11.6-14.6 [facility] Comment on above: Result Comment: This specimen has been REJECTED due to Laboratory criteria:Clotted.SCOTTY WAGONER has been notified of need of recollection.05/10/252118 Tamara Reg Performed By: #### L 100.0100, L500.4050, L501.2450 ####[facility] [address] [place], [address] RDW SD Normal 35.1-43.9 [facility] Comment on above: Result Comment: This specimen has been REJECTED due to Laboratory criteria:Clotted.SCOTTY WAGONER has been notified of need of recollection.05/10/252118 Tamara Reg Performed By: #### L 100.0100, L500.4050, L501.2450 ####[facility] [address] [place], [address] WBC Normal 4.4-11.0 [facility] Comment on above: Result Comment: This specimen has been REJECTED due to Laboratory criteria:Clotted.SCOTTY WAGONER has been notified of need of recollection.05/10/252118 Tamara Reg Performed By: #### L 100.0100, L500.4050, L501.2450 ####[facility] [address] [place], [address] Carbon dioxide, total [Moles /volume] in Central venous bloodOrdered By: Joanne Kelly on 05-10-2025 CO2 [Moles/Vol] 28.4 mmol/L 21.0-32.0 [facility] Chloride assayOrdered By: Jamari Kelly on 05-10-2025 Chloride [Moles/Vol] 98 mmol/L 98-108 [facility] Comprehensive Metabolic Prof ilon 05-10-2025 Albumin [Mass/Vol] 3.9 g/dL Normal 3.4-4.8 [facility] Comment on above: Performed By: #### L 100.0100, L500.4050, L501.2450 ####[facility] [address] [place], [address] Albumin/Globulin [Mass ratio] 1.1 {ratio} Normal 0.9-2.4 [facility] Comment on above: Performed By: #### L 100.0100, L500.4050, L501.2450 ####[facility] [address] [place], [address] ALK PHOS 121 U/L High 35-104 [facility] Comment on above: Performed By: #### L 100.0100, L500.4050, L501.2450 ####[facility] [address] [place], [address] ALT [Catalytic activity/Vol] U/L Normal <=34 [facility] Comment on above: Performed By: #### L 100.0100, L500.4050, L501.2450 ####[facility] [address] [place], [address] AST [Catalytic activity/Vol] 16 U/L Normal <=31 [facility] Comment on above: Result Comment: Hemo lysis present, Results??could be affected.?? Performed By: #### L 100.0100, L500.4050, L501.2450 ####[facility] [address] [place], [address] BUN/CRE 6.7 RATIO Low 10-20 [facility] Comment on above: Performed By: #### L 100.0100, L500.4050, L501.2450 ####[facility] [address] [place], [address] Calcium [Mass/Vol] 9.5 mg/dL Normal 7.6-11.0 [facility] Comment on above: Performed By: #### L 100.0100, L500.4050, L501.2450 ####[facility] [address] [place], [address] Chloride [Moles/Vol] 98 mmol/L Normal 98-108 [facility] Comment on above: Performed By: #### L 100.0100, L500.4050, L501.2450 ####[facility] [address] [place], [address] CO2 [Moles/Vol] 28.4 mmol/L Normal 21.0-32.0 [facility] Comment on above: Performed By: #### L 100.0100, L500.4050, L501.2450 ####[facility] [address] [place], [address] Creatinine [Mass/Vol] 0.67 mg/dL Low 0.70-1.20 [facility] Comment on above: Performed By: #### L 100.0100, L500.4050, L501.2450 ####[facility] [address] [place], [address] ECRCL 72.02 ml/min Normal 50-250 [facility] Comment on above: Performed By: #### L 100.0100, L500.4050, L501.2450 ####[facility] [address] [place], [address] GAP 12 Normal 5-15 [facility] Comment on above: Performed By: #### L 100.0100, L500.4050, L501.2450 ####[facility] [address] [place], [address] GFR/1.73 sq M.predicted among non-blacks MDRD (S/P/Bld) [Vol rate/Area] 99 mL/min/{1.73_m2} Normal >60 [facility] Comment on above: Result Comment: mL/m in/1.73m2 CKD-EPI Creatinine Equation (2020) Performed By: #### L 100.0100, L500.4050, L501.2450 ####[facility] [address] [place], [address] Globulin (S) [Mass/Vol] 3.5 g/dL Normal 2.2-4.2 [facility] Comment on above: Performed By: #### L 100.0100, L500.4050, L501.2450 ####[facility] [address] [place], [address] Glucose [Mass/Vol] 114 mg/dL High 70-99 [facility] Comment on above: Performed By: #### L 100.0100, L500.4050, L501.2450 ####[facility] [address] [place], [address] Potassium [Moles/Vol] 4.4 mmol/L Normal 3.3-5.1 [facility] Comment on above: Result Comment: Hemo lysis present, Results??could be affected.?? Performed By: #### L 100.0100, L500.4050, L501.2450 ####[facility] [address] [place], [address] Sodium [Moles/Vol] 138 mmol/L Normal 133-145 [facility] Comment on above: Performed By: #### L 100.0100, L500.4050, L501.2450 ####[facility] [address] [place], [address] T BILI < 0.15 Normal 0.00-1.30 [facility] Comment on above: Performed By: #### L 100.0100, L500.4050, L501.2450 ####[facility] [address] [place], [address] T PROT 7.4 g/dL Normal 5.9-8.4 [facility] Comment on above: Performed By: #### L 100.0100, L500.4050, L501.2450 ####[facility] [address] [place], [address] Urea nitrogen [Mass/Vol] 4 mg/dL Normal 4-19 [facility] Comment on above: Performed By: #### L 100.0100, L500.4050, L501.2450 ####[facility] [address] [place], [address] ALB Normal 3.4-4.8 [facility] Comment on above: Result Comment: DUP Performed By: #### L 500.4050, L100.0100 ####[facility] [address] [place], [address] ALK PHOS Normal 35-104 [facility] Comment on above: Result Comment: DUP Performed By: #### L 500.4050, L100.0100 ####[facility] [address] [place], [address] ALT Normal <=34 [facility] Comment on above: Result Comment: DUP Performed By: #### L 500.4050, L100.0100 ####[facility] [address] [place], [address] AST Normal <=31 [facility] Comment on above: Result Comment: DUP Performed By: #### L 500.4050, L100.0100 ####[facility] [address] [place], [address] BUN Normal 4-19 [facility] Comment on above: Result Comment: DUP Performed By: #### L 500.4050, L100.0100 ####[facility] [address] [place], [address] BUN/CRE Normal 10-20 [facility] Comment on above: Result Comment: DUP Performed By: #### L 500.4050, L100.0100 ####[facility] [address] [place], [address] Calcium Normal 7.6-11.0 [facility] Comment on above: Result Comment: DUP Performed By: #### L 500.4050, L100.0100 ####[facility] [address] [place], [address] CL Normal 98-108 [facility] Comment on above: Result Comment: DUP Performed By: #### L 500.4050, L100.0100 ####[facility] [address] [place], [address] CO2 Normal 21.0-32.0 [facility] Comment on above: Result Comment: DUP Performed By: #### L 500.4050, L100.0100 ####[facility] [address] [place], [address] CREAT,SERUM Normal 0.70-1.20 [facility] Comment on above: Result Comment: DUP Performed By: #### L 500.4050, L100.0100 ####[facility] [address] [place], [address] eGFR Normal >60 [facility] Comment on above: Result Comment: DUP Performed By: #### L 500.4050, L100.0100 ####[facility] [address] [place], [address] GAP Normal 5-15 [facility] Comment on above: Result Comment: DUP Performed By: #### L 500.4050, L100.0100 ####[facility] [address] [place], [address] GLU Normal 70-99 [facility] Comment on above: Result Comment: DUP Performed By: #### L 500.4050, L100.0100 ####[facility] [address] [place], [address] Potassium Normal 3.3-5.1 [facility] Comment on above: Result Comment: DUP Performed By: #### L 500.4050, L100.0100 ####[facility] [address] [place], [address] T BILI Normal 0.00-1.30 [facility] Comment on above: Result Comment: DUP Performed By: #### L 500.4050, L100.0100 ####[facility] [address] [place], [address] T PROT Normal 5.9-8.4 [facility] Comment on above: Result Comment: DUP Performed By: #### L 500.4050, L100.0100 ####[facility] [address] [place], [address] Comprehensive Metabolic Profil Normal 133-145 [facility] Comment on above: Result Comment: DUP Performed By: #### L 500.4050, L100.0100 ####[facility] [address] [place], [address] Emergency Department Summary on 05-10-2025 Emergency Department Summary Normal [facility] Eosinophil percentageOrdered By: Joanne Robin on 05-10-2025 Eosinophils/100 WBC (Bld) 5.1 % High 0-5 [facility] Erythrocyte distribution wid th ratioOrdered By: Joanne Kelly on 05-10-2025 Erythrocyte distribution width (RBC) [Ratio] 14.6 % 11.6-14.6 [facility] Erythrocyte distribution wid th standard deviationOrdered By: Joannerodrigue Kelly on 05-10-2025 Erythrocyte distribution width (RBC) [Ratio] 46.5 fl High 35.1-43.9 [facility] Glomerular filtration rate ( GFR) estimation/1.73 sq m using serum, plasma, or whole bOrdered By: Joanne Kelly on 05-10-2025 GFR/1.73 sq M.predicted among non-blacks MDRD (S/P/Bld) [Vol rate/Area] 99 mL/min/{1.73_m2} >60 [facility] Hematocrit Auto (Bld) [Volum e fraction]Ordered By: Joanne Kelly on 05-10-2025 Hematocrit (Bld) [Volume fraction] 37.0 % 37-47 [facility] Hemoglobin measurementOrdere d By: Joannerodrigue Kelly on 05-10-2025 Hemoglobin (Bld) [Mass/Vol] 11.4 g/dL Low 12.0-15.0 [facility] Immature granulocytes/100 WB C Auto (Bld)Ordered By: Joanne Kelly on 05-10-2025 Immature granulocytes/100 WBC (Bld) 0.700 % 0.0-0.9 [facility] Lipaseon 05-10-2025 Lipase [Catalytic activity/Vol] 459 U/L High 13-75 [facility] Comment on above: Result Comment: Jenny capellan note:LIPASE revised reference range effective 23.New Lipase methodology. Expected to produce lower valuesthan the previous assay method.NEW Reference Range: 13 - 75 U/L Performed By: #### L 100.0100, L500.4050, L501.2450 ####[facility] [address] [place], [address] MCV (mean corpuscular volume ) determinationOrdered By: Joanne Kelly on 05-10-2025 MCV (RBC) [Entitic vol] 86.7 fL 81-99 [facility] Mean corpuscular hemoglobin (MCH) determinationOrdered By: Joanne Kelly on 05-10-2025 MCH (RBC) [Entitic mass] 26.7 pg Low 27.0-32.0 [facility] Monocyte percentageOrdered B y: Joanne Kelly on 05-10-2025 Monocytes/100 WBC (Bld) 8.2 % 0-10 [facility] Neutrophil percentageOrdered By: Joanne Kelly on 05-10-2025 Neutrophils/100 WBC (Bld) 63.8 % 47-70 [facility] No Panel InformationOrdered By: Joanne Kelly on 05-10-2025 16 U/L <32 [facility] Platelet countOrdered By: Jamari Kelly on 05-10-2025 Platelets (Bld) [#/Vol] 305 10*3/uL 150-450 [facility] Potassium measurement (mass/ volume)Ordered By: Joanne Kelly on 05-10-2025 Potassium (Unsp spec) [Mass/Vol] 4.4 mmol/L 3.3-5.1 [facility] RBC Auto (Bld) [#/Vol]Ordere d By: Joanne Kelly on 05-10-2025 RBC (Bld) [#/Vol] 4.27 10*6/uL 4.2-5.4 [facility] Serum creatinine measurement (mass/volume)Ordered By: Joanne Kelly on 05-10-2025 Creatinine [Mass/Vol] 0.67 mg/dL Low 0.70-1.20 [facility] Serum globulin measurementOr dered By: Joanne Kelly on 05-10-2025 Globulin (S) [Mass/Vol] 3.5 g/dL 2.2-4.2 [facility] Serum glucose measurement (m ass/volume)Ordered By: Joanne Kelly on 05-10-2025 Glucose [Mass/Vol] 114 mg/dL High 70-99 [facility] Serum or plasma alanine pimentel otransferase (ALT) measurementOrdered By: Joanne Kelly on 05-10-2025 ALT [Catalytic activity/Vol] U/L <35 [facility] Serum or plasma albumin esthela urement (mass/volume)Ordered By: Joannerodrigue Kelly on 05-10-2025 Albumin [Mass/Vol] 3.9 g/dL 3.4-4.8 [facility] Serum or plasma albumin/glob ulin mass ratioOrdered By: Joannerodrigue Kelly on 05-10-2025 Albumin/Globulin [Mass ratio] 1.1 {ratio} 0.9-2.4 [facility] Serum or plasma alkaline jose sphatase measurementOrdered By: Joanne Kelly on 05-10-2025 ALP [Catalytic activity/Vol] 121 U/L High 35-104 [facility] Serum or plasma calcium esthela urement (mass/volume)Ordered By: Joanne Kelly on 05-10-2025 Calcium [Mass/Vol] 9.5 mg/dL 7.6-11.0 [facility] Serum or plasma urea nitroge n measurement (mass/volume)Ordered By: Joanne Kelly on 05-10-2025 Urea nitrogen [Mass/Vol] 4 mg/dL 4-19 [facility] Sodium levelOrdered By: Mahamed a Robin on 05-10-2025 Sodium [Moles/Vol] 138 mmol/L 133-145 [facility] Total proteinOrdered By: Brittnee ca Robin on 05-10-2025 Protein [Mass/Vol] 7.4 g/dL 5.9-8.4 [facility] White blood cell (WBC) count Ordered By: Joannerodrigue Kelly on 05-10-2025 WBC (Bld) [#/Vol] 16.2 10*3/uL High 4.4-11.0 [facility] M7400.3302on 05-05-2025 M7400.3302 Normal [facility] Comment on above: Performed By: #### M 600.5000, L7000.0700, M7400.3302 ####[facility] [address] [place], [address] Ova and Parasites 8623on OP Normal [facility] Comment on above: Performed By: #### M 600.5000, L7000.0700, M7400.3302 ####[facility] [address] [place], [place], [id number] Calprotectin, Stoolon [address] 20 ug/g Normal 0-120 [facility] Comment on above: Result Comment: Conc entration Interpretation Follow-Up< 5 - 50 ug/g Normal None>50 -120 ug/g Borderline Re-evaluate in 4-6 weeks >120 ug/g Abnormal Repeat as clinically indicatedPerformed at: [facility] [address] [id number] Director: Marvin Quintanilla MD, Phone: [phone] Performed By: #### M 600.5000, L7000.0700, M8200.7392 ####[facility] [address] [place], [place], [id number] L7000.0750on 05-01-2025 P ELASTASE,FECA 462 Normal >200 [facility] Comment on above: Result Comment: Resu lt Units: ug Elast./g Severe Pancreatic Insufficiency: <100 Moderate Pancreatic Insufficiency: 100 - 200 Normal: >200Performed at: [facility] [id number] Director: Marvin Quintanilla MD, Phone: [phone] Performed By: #### M 1006796, M100.637, L7000.0750 ####[facility] [address] [place], [place], [id number] CDIFF (PCR)on 04-27-2025 CDIFF Pending 027 027 NAP1-B1 Presumptive Negative *for epidemiolologic???use C. Diff PCR Negative- No toxigenic C. Diff Detected Normal [facility] Comment on above: Performed By: #### M 1006796, M100.637, L7000.0750 ####[facility] [address] [place], [place], [address] Calprotectin stoolOrdered By : Gabby Martinez on 04-27-2025 Calprotectin stool 20 ug/g 0-120 [facility] Clostridium difficile detect ion by polymerase chain reactionOrdered By: Gabby Martinez on 04-27-2025 C. difficile DNA KANDY+probe Ql (Unsp spec) [facility] ENTERIC PATHOGEN PANEL STOOL on 04-27-2025 EP PANEL CAMPYLOBACTER Not Detected Norovirus Not Detected Rotavirus Not Detected Salmonella Not Detected Shiga Toxin Not Detected Shigella sp. Not Detected VIBRIO Not Detected Yersinia Not Detected Normal [facility] Comment on above: Performed By: #### M 100.6796, M100.637, L7000.0750 ####[facility] [address] [place], [place], [address] Stool pancreatic elastase me asurement (mass/mass)Ordered By: Gabby Martinez on 04-27-2025 Elastase.pancreatic (Stl) [Mass/Mass] 462 >200 [facility] Abdomen Single Viewon 2024 Abdomen Single View Normal [facility] Gastroenterology Visit Repor ton 04-26-2025 Gastroenterology Visit Report Normal [facility] Lipaseon 04-26-2025 Lipase [Catalytic activity/Vol] 353 U/L High 13-75 [facility] Comment on above: Result Comment: Jenny capellan note:LIPASE revised reference range effective 23.New Lipase methodology. Expected to produce lower valuesthan the previous assay method.NEW Reference Range: 13 - 75 U/L Performed By: #### L 501.2450 ####[facility] [address] [place], [place], [address] CNOVon 04-25-2025 CNOV Office Visit (INTMWS ) -------- GRACIE BANUELOS ([id number]) 1965 F Date Time Provider Department 04/25/25 [...] on 04/16/2025 and discharged on 04/19/2025, at [facility], following an episode of acute [...] placement and removal of multiple stones at [facility] in [place] on 03/10/2025. During her recent hospitalization, a [...] chronic pancreatitis and pancreatic stent placement at [facility] on 03/10/2025. She reports ongoing pain [...] pain management. She is also taking an zeyy-fow-mxiekmh medication called Ease to manage constipation associated with opioid use. Gracie expresses concern about her blood pressure readings, which she reports are high in one arm and low in the other. She was told by her doctors that she might have a blood clot and is requesting a referral to a television specialist for further evaluation. 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 Normal [facility] CNPNon 04-25-2025 CNPN Telephone (INTMWS) -------- GRACIE BANUELOS ([id number]) 1965 F Date Time Provider Department 04/25/25 MISBAH ELKINS INTMWS During your visit today, [...] cyst, righ (more content not included)... Normal [facility] 04-20-2025 CNPN Telephone (INTMWS) -------- GRACIE BANUELOS ([id number]) 1965 F Date Time Provider Department 04/20/25 MISBAH ELKINS INTMWS During your visit today, we recorded the following information about you: Kiana Christy 04/20/2025 8:59 AM Signed Patient calling in to let office know she was just discharged from [facility]. She made an appt to see on 04/25, however she states they gave her oxycodone to help with her pain, and she only has 4 left. She is wondering if she is able to get another refill. Please review and advise. Kiana Olivier Christy April 20, 2025 8:59 AM Misbah Elkins MD 04/20/2025 4:58 PM Signed [facility] does not show that she got any oxycodoe Staff do you see anything or does [facility] Er not have connection to [...] Philip Barbara, SARWAT 04/22/2025 9:18 AM Signed DORIAN pt has a script at the [...] 11/16/2013 Uri (more content not included)... Normal [facility] Absolute lymphocyte countOrd ered By: Sudhir Izquierdo on 04-19-2025 Lymphocytes Auto (Unsp spec) [#/Vol] 2.49 10*3/uL 0.83-4.51 [facility] Automated lymphocyte count a s percentage of total leukocytesOrdered By: Sudhir Izquierdo on 04-19-2025 Lymphocytes/100 WBC Auto (Unsp spec) 24.2 % 19-41 [facility] Basophil percentageOrdered B y: Sudhir Izquierdo on 04-19-2025 Basophils/100 WBC (Bld) 0.7 % 0-1 [facility] CBC W/Diff, Automatedon 03-29 Absolute Lymph 2.49 X10 3/uL Normal 0.83-4.51 [facility] Comment on above: Performed By: #### L 100.0100 ####[facility] [address] [place], [address] Absolute Neut 5.6 X10 3/uL Normal 2.0-7.7 [facility] Comment on above: Performed By: #### L 100.0100 ####[facility] [address] [place], [address] Basophils/100 WBC (Bld) 0.7 % Normal 0-1 [facility] Comment on above: Performed By: #### L 100.0100 ####[facility] [address] [place], [address] Eosinophils/100 WBC (Bld) 12.2 % High 0-5 [facility] Comment on above: Performed By: #### L 100.0100 ####[facility] [address] [place], [address] Erythrocyte distribution width (RBC) [Ratio] 14.5 % Normal 11.6-14.6 [facility] Comment on above: Performed By: #### L 100.0100 ####[facility] [address] [place], [address] Hematocrit (Bld) [Volume fraction] 28.0 % Low 37-47 [facility] Comment on above: Performed By: #### L 100.0100 ####[facility] [address] [place], [address] Hemoglobin (Bld) [Mass/Vol] 8.8 g/dL Low 12.0-15.0 [facility] Comment on above: Performed By: #### L 100.0100 ####[facility] [address] [place], [address] IG% 1.100 High 0.0-0.9 [facility] Comment on above: Result Comment: IG% - Immature Granulocytes (promyelocytes, myelocytes andmetamyelocytes) > 1% indicates that a LEFT SHIFT is Present. Performed By: #### L 100.0100 ####[facility] [address] [place], [address] Lymphocytes/100 WBC (Bld) 24.2 % Normal 19-41 [facility] Comment on above: Performed By: #### L 100.0100 ####[facility] [address] [place], [address] MCH (RBC) [Entitic mass] 26.4 pg Low 27.0-32.0 [facility] Comment on above: Performed By: #### L 100.0100 ####[facility] [address] [place], [address] MCHC (RBC) [Mass/Vol] 31.4 g/dL Low 32-36 [facility] Comment on above: Performed By: #### L 100.0100 ####[facility] [address] [place], [address] MCV (RBC) [Entitic vol] 84.1 fL Normal 81-99 [facility] Comment on above: Performed By: #### L 100.0100 ####[facility] [address] [place], [address] Monocytes/100 WBC (Bld) 7.2 % Normal 0-10 [facility] Comment on above: Performed By: #### L 100.0100 ####[facility] [address] [place], [address] Neutrophils/100 WBC (Bld) 54.6 % Normal 47-70 [facility] Comment on above: Performed By: #### L 100.0100 ####[facility] [address] [place], [address] Nucleated RBC (Bld) [#/Vol] 0 10*3/uL Normal 0-5 [facility] Comment on above: Performed By: #### L 100.0100 ####[facility] [address] [place], [address] Platelet mean volume (Bld) [Entitic vol] 9.6 fL Normal 6.2-12.0 [facility] Comment on above: Performed By: #### L 100.0100 ####[facility] [address] [place], [address] Platelets (Bld) [#/Vol] 330 10*3/uL Normal 150-450 [facility] Comment on above: Performed By: #### L 100.0100 ####[facility] [address] [place], [address] RBC (Bld) [#/Vol] 3.33 10*6/uL Low 4.2-5.4 [facility] Comment on above: Performed By: #### L 100.0100 ####[facility] [address] [place], [address] RDW SD 44.5 fl High 35.1-43.9 [facility] Comment on above: Performed By: #### L 100.0100 ####[facility] [address] [place], [address] WBC (Bld) [#/Vol] 10.3 10*3/uL Normal 4.4-11.0 [facility] Comment on above: Performed By: #### L 100.0100 ####[facility] [address] [place], [address] Discharge Instructionon 03-29 Discharge Instruction Normal [facility] Eosinophil percentageOrdered By: Sudhir Izquierdo on 04-19-2025 Eosinophils/100 WBC (Bld) 12.2 % High 0-5 [facility] Erythrocyte distribution wid th ratioOrdered By: Sudhir Izquierdo on 04-19-2025 Erythrocyte distribution width (RBC) [Ratio] 14.5 % 11.6-14.6 [facility] Erythrocyte distribution wid th standard deviationOrdered By: Sudhir Izquierdo on 04-19-2025 Erythrocyte distribution width (RBC) [Ratio] 44.5 fl High 35.1-43.9 [facility] Hematocrit Auto (Bld) [Volum e fraction]Ordered By: Sudhir Izquierdo on 04-19-2025 Hematocrit (Bld) [Volume fraction] 28.0 % Low 37-47 [facility] Hemoglobin measurementOrdere d By: Sudhir Izquierdo on 04-19-2025 Hemoglobin (Bld) [Mass/Vol] 8.8 g/dL Low 12.0-15.0 [facility] Immature granulocytes/100 WB C Auto (Bld)Ordered By: Sudhir Izquierdo on 04-19-2025 Immature granulocytes/100 WBC (Bld) 1.100 % High 0.0-0.9 [facility] MCV (mean corpuscular volume ) determinationOrdered By: Sudhir Izquierdo on 04-19-2025 MCV (RBC) [Entitic vol] 84.1 fL 81-99 [facility] Mean corpuscular hemoglobin (MCH) determinationOrdered By: Sudhir Izquierdo on 04-19-2025 MCH (RBC) [Entitic mass] 26.4 pg Low 27.0-32.0 [facility] Monocyte percentageOrdered B y: Sudhir Izquiredo on 04-19-2025 Monocytes/100 WBC (Bld) 7.2 % 0-10 [facility] Neutrophil percentageOrdered By: Sudhir Izquierdo on 04-19-2025 Neutrophils/100 WBC (Bld) 54.6 % 47-70 [facility] Platelet countOrdered By: Rosana Izquierdo on 04-19-2025 Platelets (Bld) [#/Vol] 330 10*3/uL 150-450 [facility] RBC Auto (Bld) [#/Vol]Ordere d By: Sudhir Izquierdo on 04-19-2025 RBC (Bld) [#/Vol] 3.33 10*6/uL Low 4.2-5.4 [facility] White blood cell (WBC) count Ordered By: Sudhir Izquierdo on 04-19-2025 WBC (Bld) [#/Vol] 10.3 10*3/uL 4.4-11.0 [facility] Anion gap in Serum or Plasma Ordered By: Bert Greenwood on 04-18-2025 Anion gap [Moles/Vol] 12 mmol/L 5-15 [facility] BUN/creatinine ratioOrdered By: Bert Greenwood on 04-18-2025 Urea nitrogen/Creatinine [Mass ratio] 8.6 mg/mg Low - [facility] Basic Metabolic Profile (BMP )on 04-18-2025 BUN/CRE 8.6 RATIO Low 07-17 [facility] Comment on above: Performed By: #### L 100.0100, L500.2500 ####[facility] [address] [place], [address] Calcium [Mass/Vol] 8.8 mg/dL Normal 7.6-11.0 [facility] Comment on above: Performed By: #### L 100.0100, L500.2500 ####[facility] [address] [place], [address] Chloride [Moles/Vol] 101 mmol/L Normal 98-108 [facility] Comment on above: Performed By: #### L 100.0100, L500.2500 ####[facility] [address] [place], [address] CO2 [Moles/Vol] 27.2 mmol/L Normal 21.0-32.0 [facility] Comment on above: Performed By: #### L 100.0100, L500.2500 ####[facility] [address] [place], [address] Creatinine [Mass/Vol] 0.57 mg/dL Low 0.70-1.20 [facility] Comment on above: Performed By: #### L 100.0100, L500.2500 ####[facility] [address] [place], [address] ECRCL 85.74 ml/min Normal 50-250 [facility] Comment on above: Performed By: #### L 100.0100, L500.2500 ####[facility] [address] [place], [address] GAP 12 Normal 5-15 [facility] Comment on above: Performed By: #### L 100.0100, L500.2500 ####[facility] [address] [place], [address] GFR/1.73 sq M.predicted among non-blacks MDRD (S/P/Bld) [Vol rate/Area] 103 mL/min/{1.73_m2} Normal >60 [facility] Comment on above: Result Comment: mL/m in/1.73m2 CKD-EPI Creatinine Equation (2020) Performed By: #### L 100.0100, L500.2500 ####[facility] [address] [place], [address] Glucose [Mass/Vol] 121 mg/dL High 70-99 [facility] Comment on above: Performed By: #### L 100.0100, L500.2500 ####[facility] [address] [place], [address] Potassium [Moles/Vol] 3.7 mmol/L Normal 3.3-5.1 [facility] Comment on above: Performed By: #### L 100.0100, L500.2500 ####[facility] [address] [place], [address] Sodium [Moles/Vol] 139 mmol/L Normal 133-145 [facility] Comment on above: Performed By: #### L 100.0100, L500.2500 ####[facility] [address] [place], [address] Urea nitrogen [Mass/Vol] 5 mg/dL Normal 4-19 [facility] Comment on above: Performed By: #### L 100.0100, L500.2500 ####[facility] [address] [place], [address] CBC W/Diff, Automatedon 07 Absolute Lymph 2.64 X10 3/uL Normal 0.83-4.51 [facility] Comment on above: Performed By: #### L 100.0100, L500.2500 ####[facility] [address] [place], [address] Absolute Neut 6.6 X10 3/uL Normal 2.0-7.7 [facility] Comment on above: Performed By: #### L 100.0100, L500.2500 ####[facility] [address] [place], [address] Basophils/100 WBC (Bld) 0.5 % Normal 0-1 [facility] Comment on above: Performed By: #### L 100.0100, L500.2500 ####[facility] [address] [place], [address] Eosinophils/100 WBC (Bld) 8.1 % High 0-5 [facility] Comment on above: Performed By: #### L 100.0100, L500.2500 ####[facility] [address] [place], [address] Erythrocyte distribution width (RBC) [Ratio] 14.8 % High 11.6-14.6 [facility] Comment on above: Performed By: #### L 100.0100, L500.2500 ####[facility] [address] [place], [address] Hematocrit (Bld) [Volume fraction] 28.1 % Low 37-47 [facility] Comment on above: Performed By: #### L 100.0100, L500.2500 ####[facility] [address] [place], [address] Hemoglobin (Bld) [Mass/Vol] 8.8 g/dL Low 12.0-15.0 [facility] Comment on above: Performed By: #### L 100.0100, L500.2500 ####[facility] [address] [place], [address] IG% 0.500 Normal 0.0-0.9 [facility] Comment on above: Result Comment: IG% - Immature Granulocytes (promyelocytes, myelocytes andmetamyelocytes) > 1% indicates that a LEFT SHIFT is Present. Performed By: #### L 100.0100, L500.2500 ####[facility] [address] [place], [address] Lymphocytes/100 WBC (Bld) 23.8 % Normal 19-41 [facility] Comment on above: Performed By: #### L 100.0100, L500.2500 ####[facility] [address] [place], [address] MCH (RBC) [Entitic mass] 26.3 pg Low 27.0-32.0 [facility] Comment on above: Performed By: #### L 100.0100, L500.2500 ####[facility] [address] [place], [address] MCHC (RBC) [Mass/Vol] 31.3 g/dL Low 32-36 [facility] Comment on above: Performed By: #### L 100.0100, L500.2500 ####[facility] [address] [place], [address] MCV (RBC) [Entitic vol] 84.1 fL Normal 81-99 [facility] Comment on above: Performed By: #### L 100.0100, L500.2500 ####[facility] [address] [place], [address] Monocytes/100 WBC (Bld) 7.0 % Normal 0-10 [facility] Comment on above: Performed By: #### L 100.0100, L500.2500 ####[facility] [address] [place], [address] Neutrophils/100 WBC (Bld) 60.1 % Normal 47-70 [facility] Comment on above: Performed By: #### L 100.0100, L500.2500 ####[facility] [address] [place], [address] Nucleated RBC (Bld) [#/Vol] 0 10*3/uL Normal 0-5 [facility] Comment on above: Performed By: #### L 100.0100, L500.2500 ####[facility] [address] [place], [address] Platelet mean volume (Bld) [Entitic vol] 9.9 fL Normal 6.2-12.0 [facility] Comment on above: Performed By: #### L 100.0100, L500.2500 ####[facility] [address] [place], [address] Platelets (Bld) [#/Vol] 303 10*3/uL Normal 150-450 [facility] Comment on above: Performed By: #### L 100.0100, L500.2500 ####[facility] [address] [place], [address] RBC (Bld) [#/Vol] 3.34 10*6/uL Low 4.2-5.4 [facility] Comment on above: Performed By: #### L 100.0100, L500.2500 ####[facility] [address] [place], [address] RDW SD 45.5 fl High 35.1-43.9 [facility] Comment on above: Performed By: #### L 100.0100, L500.2500 ####[facility] [address] [place], [address] WBC (Bld) [#/Vol] 11.1 10*3/uL High 4.4-11.0 [facility] Comment on above: Performed By: #### L 100.0100, L500.2500 ####[facility] [address] [place], [address] Carbon dioxide, total [Moles /volume] in Central venous bloodOrdered By: Bert Greenwood on 04-18-2025 CO2 [Moles/Vol] 27.2 mmol/L 21.0-32.0 [facility] Chloride assayOrdered By: Dorian Greenwood on 04-18-2025 Chloride [Moles/Vol] 101 mmol/L 98-108 [facility] Glomerular filtration rate ( GFR) estimation/1.73 sq m using serum, plasma, or whole bOrdered By: Bert Greenwood on 04-18-2025 GFR/1.73 sq M.predicted among non-blacks MDRD (S/P/Bld) [Vol rate/Area] 103 mL/min/{1.73_m2} >60 [facility] Potassium measurement (mass/ volume)Ordered By: Bert Greenwood on 04-18-2025 Potassium (Unsp spec) [Mass/Vol] 3.7 mmol/L 3.3-5.1 [facility] Serum creatinine measurement (mass/volume)Ordered By: Bert Greenwood on 04-18-2025 Creatinine [Mass/Vol] 0.57 mg/dL Low 0.70-1.20 [facility] Serum glucose measurement (m ass/volume)Ordered By: Bert Greenwood on 04-18-2025 Glucose [Mass/Vol] 121 mg/dL High 70-99 [facility] Serum or plasma calcium esthela urement (mass/volume)Ordered By: Bert Greenwood on 04-18-2025 Calcium [Mass/Vol] 8.8 mg/dL 7.6-11.0 [facility] Serum or plasma urea nitroge n measurement (mass/volume)Ordered By: Bert Greenwood on 04-18-2025 Urea nitrogen [Mass/Vol] 5 mg/dL 4-19 [facility] Sodium levelOrdered By: Mandy Greenwood on 04-18-2025 Sodium [Moles/Vol] 139 mmol/L 133-145 [facility] Bilirubin, totalOrdered By: Bert Greenwood on 04-17-2025 Bilirubin [Mass/Vol] 0.18 mg/dL 0.00-1.30 [facility] CBC W/Diff, Automatedon 03-29 Absolute Lymph 2.11 X10 3/uL Normal 0.83-4.51 [facility] Comment on above: Performed By: #### L 500.4050, L100.0100, L501.2450 ####[facility] [address] [place], [address] Absolute Neut 8.8 X10 3/uL High 2.0-7.7 [facility] Comment on above: Performed By: #### L 500.4050, L100.0100, L501.2450 ####[facility] [address] [place], [address] Basophils/100 WBC (Bld) 0.5 % Normal 0-1 [facility] Comment on above: Performed By: #### L 500.4050, L100.0100, L501.2450 ####[facility] [address] [place], [address] Eosinophils/100 WBC (Bld) 5.0 % Normal 0-5 [facility] Comment on above: Performed By: #### L 500.4050, L100.0100, L501.2450 ####[facility] [address] [place], [address] Erythrocyte distribution width (RBC) [Ratio] 14.9 % High 11.6-14.6 [facility] Comment on above: Performed By: #### L 500.4050, L100.0100, L501.2450 ####[facility] [address] [place], [address] Hematocrit (Bld) [Volume fraction] 28.3 % Low 37-47 [facility] Comment on above: Performed By: #### L 500.4050, L100.0100, L501.2450 ####[facility] [address] [place], [address] Hemoglobin (Bld) [Mass/Vol] 8.9 g/dL Low 12.0-15.0 [facility] Comment on above: Performed By: #### L 500.4050, L100.0100, L501.2450 ####[facility] [address] [place], [address] IG% 0.600 Normal 0.0-0.9 [facility] Comment on above: Result Comment: IG% - Immature Granulocytes (promyelocytes, myelocytes andmetamyelocytes) > 1% indicates that a LEFT SHIFT is Present. Performed By: #### L 500.4050, L100.0100, L501.2450 ####[facility] [address] [place], [address] Lymphocytes/100 WBC (Bld) 16.6 % Low 19-41 [facility] Comment on above: Performed By: #### L 500.4050, L100.0100, L501.2450 ####[facility] [address] [place], [address] MCH (RBC) [Entitic mass] 26.8 pg Low 27.0-32.0 [facility] Comment on above: Performed By: #### L 500.4050, L100.0100, L501.2450 ####[facility] [address] [place], [address] MCHC (RBC) [Mass/Vol] 31.4 g/dL Low 32-36 [facility] Comment on above: Performed By: #### L 500.4050, L100.0100, L501.2450 ####[facility] [address] [place], [address] MCV (RBC) [Entitic vol] 85.2 fL Normal 81-99 [facility] Comment on above: Performed By: #### L 500.4050, L100.0100, L501.2450 ####[facility] [address] [place], [address] Monocytes/100 WBC (Bld) 8.3 % Normal 0-10 [facility] Comment on above: Performed By: #### L 500.4050, L100.0100, L501.2450 ####[facility] [address] [place], [address] Neutrophils/100 WBC (Bld) 69.0 % Normal 47-70 [facility] Comment on above: Performed By: #### L 500.4050, L100.0100, L501.2450 ####[facility] [address] [place], [address] Nucleated RBC (Bld) [#/Vol] 0 10*3/uL Normal 0-5 [facility] Comment on above: Performed By: #### L 500.4050, L100.0100, L501.2450 ####[facility] [address] [place], [address] Platelet mean volume (Bld) [Entitic vol] 10.3 fL Normal 6.2-12.0 [facility] Comment on above: Performed By: #### L 500.4050, L100.0100, L501.2450 ####[facility] [address] [place], [address] Platelets (Bld) [#/Vol] 310 10*3/uL Normal 150-450 [facility] Comment on above: Performed By: #### L 500.4050, L100.0100, L501.2450 ####[facility] [address] [place], [address] RBC (Bld) [#/Vol] 3.32 10*6/uL Low 4.2-5.4 [facility] Comment on above: Performed By: #### L 500.4050, L100.0100, L501.2450 ####[facility] [address] [place], [address] RDW SD 46.7 fl High 35.1-43.9 [facility] Comment on above: Performed By: #### L 500.4050, L100.0100, L501.2450 ####[facility] [address] [place], [address] WBC (Bld) [#/Vol] 12.7 10*3/uL High 4.4-11.0 [facility] Comment on above: Performed By: #### L 500.4050, L100.0100, L501.2450 ####[facility] [address] [place], [address] Comprehensive Metabolic Prof [facility] [place] 04-17-2025 Albumin [Mass/Vol] 3.0 g/dL Low 3.4-4.8 [facility] Comment on above: Performed By: #### L 500.4050, L100.0100, L501.2450 ####[facility] [address] [place], [address] Albumin/Globulin [Mass ratio] 1.0 {ratio} Normal 0.9-2.4 [facility] Comment on above: Performed By: #### L 500.4050, L100.0100, L501.2450 ####[facility] [address] [place], [address] ALK PHOS 113 U/L High 35-104 [facility] Comment on above: Performed By: #### L 500.4050, L100.0100, L501.2450 ####[facility] [address] [place], [address] ALT [Catalytic activity/Vol] 9 U/L Normal <=34 [facility] Comment on above: Performed By: #### L 500.4050, L100.0100, L501.2450 ####[facility] [address] [place], [address] AST [Catalytic activity/Vol] 11 U/L Normal <=31 [facility] Comment on above: Performed By: #### L 500.4050, L100.0100, L501.2450 ####[facility] [address] [place], [address] Bilirubin [Mass/Vol] 0.18 mg/dL Normal 0.00-1.30 [facility] Comment on above: Performed By: #### L 500.4050, L100.0100, L501.2450 ####[facility] [address] [place], [address] BUN/CRE 7.7 RATIO Low 10-20 [facility] Comment on above: Performed By: #### L 500.4050, L100.0100, L501.2450 ####[facility] [address] [place], [address] Calcium [Mass/Vol] 9.1 mg/dL Normal 7.6-11.0 [facility] Comment on above: Performed By: #### L 500.4050, L100.0100, L501.2450 ####[facility] [address] [place], [address] Chloride [Moles/Vol] 101 mmol/L Normal 98-108 [facility] Comment on above: Performed By: #### L 500.4050, L100.0100, L501.2450 ####[facility] [address] [place], [address] CO2 [Moles/Vol] 26.9 mmol/L Normal 21.0-32.0 [facility] Comment on above: Performed By: #### L 500.4050, L100.0100, L501.2450 ####[facility] [address] [place], [address] Creatinine [Mass/Vol] 0.57 mg/dL Low 0.70-1.20 [facility] Comment on above: Performed By: #### L 500.4050, L100.0100, L501.2450 ####[facility] [address] [place], [address] ECRCL 85.74 ml/min Normal 50-250 [facility] Comment on above: Performed By: #### L 500.4050, L100.0100, L501.2450 ####[facility] [address] [place], [address] GAP 12 Normal 5-15 [facility] Comment on above: Performed By: #### L 500.4050, L100.0100, L501.2450 ####[facility] [address] [place], [address] GFR/1.73 sq M.predicted among non-blacks MDRD (S/P/Bld) [Vol rate/Area] 103 mL/min/{1.73_m2} Normal >60 [facility] Comment on above: Result Comment: mL/m in/1.73m2 CKD-EPI Creatinine Equation (2020) Performed By: #### L 500.4050, L100.0100, L501.2450 ####[facility] [address] [place], [address] Globulin (S) [Mass/Vol] 3.0 g/dL Normal 2.2-4.2 [facility] Comment on above: Performed By: #### L 500.4050, L100.0100, L501.2450 ####[facility] [address] [place], [address] Glucose [Mass/Vol] 107 mg/dL High 70-99 [facility] Comment on above: Performed By: #### L 500.4050, L100.0100, L501.2450 ####[facility] [address] [place], [address] Potassium [Moles/Vol] 3.8 mmol/L Normal 3.3-5.1 [facility] Comment on above: Performed By: #### L 500.4050, L100.0100, L501.2450 ####[facility] [address] [place], [address] Sodium [Moles/Vol] 139 mmol/L Normal 133-145 [facility] Comment on above: Performed By: #### L 500.4050, L100.0100, L501.2450 ####[facility] [address] [place], [address] T PROT 6.0 g/dL Normal 5.9-8.4 [facility] Comment on above: Performed By: #### L 500.4050, L100.0100, L501.2450 ####[facility] [address] [place], [address] Urea nitrogen [Mass/Vol] 4 mg/dL Normal 4-19 [facility] Comment on above: Performed By: #### L 500.4050, L100.0100, L501.2450 ####[facility] [address] [place], [address] LDHon 04-17-2025 LDH 145 U/L Normal 84-246 [facility] Comment on above: Performed By: #### L 504.2610 ####[facility] [address] [place], [address] Lipaseon 04-17-2025 Lipase [Catalytic activity/Vol] 90 U/L High 13-75 [facility] Comment on above: Result Comment: Jenny capellan note:LIPASE revised reference range effective 23.New Lipase methodology. Expected to produce lower valuesthan the previous assay method.NEW Reference Range: 13 - 75 U/L Performed By: #### L 500.4050, L100.0100, L501.2450 ####[facility] [address] [place], [address] No Panel InformationOrdered By: Bert Greenwood on 04-17-2025 11 U/L <32 [facility] Serum globulin measurementOr dered By: Bert Greenwood on 04-17-2025 Globulin (S) [Mass/Vol] 3.0 g/dL 2.2-4.2 [facility] Serum or plasma alanine pimentel otransferase (ALT) measurementOrdered By: Bert Greenwood on 04-17-2025 ALT [Catalytic activity/Vol] 9 U/L <35 [facility] Serum or plasma albumin esthela urement (mass/volume)Ordered By: Bert Greenwood on 04-17-2025 Albumin [Mass/Vol] 3.0 g/dL Low 3.4-4.8 [facility] Serum or plasma albumin/glob ulin mass ratioOrdered By: Bert Greenwood on 04-17-2025 Albumin/Globulin [Mass ratio] 1.0 {ratio} 0.9-2.4 [facility] Serum or plasma alkaline jose sphatase measurementOrdered By: Bert Greenwood on 04-17-2025 ALP [Catalytic activity/Vol] 113 U/L High 35-104 [facility] Total proteinOrdered By: Art Greenwood on 04-17-2025 Protein [Mass/Vol] 6.0 g/dL 5.9-8.4 [facility] Alcohol, Blood (Medical)-Ser umon 04-16-2025 SERUM ETOH < 10.1 Normal <=10.0 [facility] Comment on above: Result Comment: This test is for medical purposes only. The legaldefinition of intoxication varies according to local law. Performed By: #### L 501.9100, L505.5000 ####[facility] [address] [facility] [place], [address] Amphetamine detection with 1 000 ng/mL as cutoffOrdered By: Jackson Chopra on 04-16-2025 Amphetamines Screen method >1000 ng/mL Ql (U) Negative < 200 ng/mL [facility] Bilirubin Test strip Ql (U)O rdered By: Erik Gomez on 04-16-2025 Bilirubin Ql (U) Negative Negative [facility] CBC W/Diff, Automatedon 03-29 Absolute Lymph 2.17 X10 3/uL Normal 0.83-4.51 [facility] Comment on above: Performed By: #### L 100.0100, L501.2300, L501.9520, L500.4050, L503.0106, L500.4100 ####[facility] [address] [place], [address] Absolute Neut 11.4 X10 3/uL High 2.0-7.7 [facility] Comment on above: Performed By: #### L 100.0100, L501.2300, L501.9520, L500.4050, L503.0106, L500.4100 ####[facility] [address] [place], [address] Basophils/100 WBC (Bld) 0.3 % Normal 0-1 [facility] Comment on above: Performed By: #### L 100.0100, L501.2300, L501.9520, L500.4050, L503.0106, L500.4100 ####[facility] [address] [place], [address] Eosinophils/100 WBC (Bld) 3.7 % Normal 0-5 [facility] Comment on above: Performed By: #### L 100.0100, L501.2300, L501.9520, L500.4050, L503.0106, L500.4100 ####[facility] [address] [place], [address] Erythrocyte distribution width (RBC) [Ratio] 14.7 % High 11.6-14.6 [facility] Comment on above: Performed By: #### L 100.0100, L501.2300, L501.9520, L500.4050, L503.0106, L500.4100 ####[facility] [address] [place], [address] Hematocrit (Bld) [Volume fraction] 30.1 % Low 37-47 [facility] Comment on above: Performed By: #### L 100.0100, L501.2300, L501.9520, L500.4050, L503.0106, L500.4100 ####[facility] [address] [place], [address] Hemoglobin (Bld) [Mass/Vol] 9.3 g/dL Low 12.0-15.0 [facility] Comment on above: Performed By: #### L 100.0100, L501.2300, L501.9520, L500.4050, L503.0106, L500.4100 ####[facility] [address] [place], [address] IG% 0.600 Normal 0.0-0.9 [facility] Comment on above: Result Comment: IG% - Immature Granulocytes (promyelocytes, myelocytes andmetamyelocytes) > 1% indicates that a LEFT SHIFT is Present. Performed By: #### L 100.0100, L501.2300, L501.9520, L500.4050, L503.0106, L500.4100 ####[facility] [address] [place], [address] Lymphocytes/100 WBC (Bld) 14.2 % Low 19-41 [facility] Comment on above: Performed By: #### L 100.0100, L501.2300, L501.9520, L500.4050, L503.0106, L500.4100 ####[facility] [address] [place], [address] MCH (RBC) [Entitic mass] 26.6 pg Low 27.0-32.0 [facility] Comment on above: Performed By: #### L 100.0100, L501.2300, L501.9520, L500.4050, L503.0106, L500.4100 ####[facility] [address] [place], [address] MCHC (RBC) [Mass/Vol] 30.9 g/dL Low 32-36 [facility] Comment on above: Performed By: #### L 100.0100, L501.2300, L501.9520, L500.4050, L503.0106, L500.4100 ####[facility] [address] [place], [address] MCV (RBC) [Entitic vol] 86.2 fL Normal 81-99 [facility] Comment on above: Performed By: #### L 100.0100, L501.2300, L501.9520, L500.4050, L503.0106, L500.4100 ####[facility] [address] [place], [address] Monocytes/100 WBC (Bld) 7.0 % Normal 0-10 [facility] Comment on above: Performed By: #### L 100.0100, L501.2300, L501.9520, L500.4050, L503.0106, L500.4100 ####[facility] [address] [place], [address] Neutrophils/100 WBC (Bld) 74.2 % High 47-70 [facility] Comment on above: Performed By: #### L 100.0100, L501.2300, L501.9520, L500.4050, L503.0106, L500.4100 ####[facility] [address] [place], [address] Nucleated RBC (Bld) [#/Vol] 0 10*3/uL Normal 0-5 [facility] Comment on above: Performed By: #### L 100.0100, L501.2300, L501.9520, L500.4050, L503.0106, L500.4100 ####[facility] [address] [place], [address] Platelet mean volume (Bld) [Entitic vol] 9.7 fL Normal 6.2-12.0 [facility] Comment on above: Performed By: #### L 100.0100, L501.2300, L501.9520, L500.4050, L503.0106, L500.4100 ####[facility] [address] [place], [address] Platelets (Bld) [#/Vol] 275 10*3/uL Normal 150-450 [facility] Comment on above: Performed By: #### L 100.0100, L501.2300, L501.9520, L500.4050, L503.0106, L500.4100 ####[facility] [address] [place], [address] RBC (Bld) [#/Vol] 3.49 10*6/uL Low 4.2-5.4 [facility] Comment on above: Performed By: #### L 100.0100, L501.2300, L501.9520, L500.4050, L503.0106, L500.4100 ####[facility] [address] [place], [address] RDW SD 46.5 fl High 35.1-43.9 [facility] Comment on above: Performed By: #### L 100.0100, L501.2300, L501.9520, L500.4050, L503.0106, L500.4100 ####[facility] [address] [place], [address] WBC (Bld) [#/Vol] 15.3 10*3/uL High 4.4-11.0 [facility] Comment on above: Performed By: #### L 100.0100, L501.2300, L501.9520, L500.4050, L503.0106, L500.4100 ####[facility] [address] [place], [address] Calculated very low density lipoprotein (VLDL) cholesterol measurementOrdered By: Jackson Chopra on 04-16-2025 Calculated very low density lipoprotein (VLDL) cholesterol measurement 24 mg/dL 5-40 [facility] Comprehensive Metabolic Prof ilon 04-16-2025 BUN/CRE 5.0 RATIO Low - [facility] Comment on above: Result Comment: AMENDED REPORT 04/16/2545 BUN/CRE previously reported as: 3.9 L RATIO Performed By: #### L 100.0100, L501.2300, L501.9520, L500.4050, L503.0106, L500.4100 ####[facility] [address] [place], [address] Urea nitrogen [Mass/Vol] 3 mg/dL Low - [facility] Comment on above: Result Comment: AMENDED REPORT 04/16/2545 BUN previously reported as: 2 L mg/dL Performed By: #### L 100.0100, L501.2300, L501.9520, L500.4050, L503.0106, L500.4100 ####[facility] [address] [place], [address] Folate [Mass/volume] in Seru m or PlasmaOrdered By: Jackson Chopra on 04-16-2025 Folate [Mass/Vol] 10.50 ng/mL 4.60-34.80 [facility] Folates,Serum (Folic Acid)on 04-16-2025 FOLATES,SERUM 10.50 ng/mL Normal 4.60-34.80 [facility] Comment on above: Result Comment: Hemo lysis, Results will be affected, Requires Recollection. Performed By: #### L 506.0200, L501.5200 ####[facility] [address] [place], [address] H AND P Exam - Hospitaliston 04-16-2025 H&P Exam - Hospitalist Normal [facility] Ketones Test strip Ql (U)Ord ered By: Erik Gomez on 04-16-2025 Ketones Ql (U) Negative Negative [facility] LDHon 04-16-2025 LDH 160 U/L Normal 84-246 [facility] Comment on above: Performed By: #### L 504.2610 ####[facility] [address] [place], [place], [address] LDL calc ser/plasOrdered By: Jackson Chopra on 04-16-2025 Cholesterol in LDL [Mass/Vol] 58 mg/dL [facility] Lipid Profileon 04-16-2025 CHOL:HDL 2.78 Normal [facility] Comment on above: Performed By: #### L 100.0100, L501.2300, L501.9520, L500.4050, L503.0106, L500.4100 ####[facility] [address] [place], [place], [address] Cholesterol [Mass/Vol] 128 mg/dL Normal <=200 [facility] Comment on above: Result Comment: Chol esterol level, Desirable <200 mg/dLBorderline high cholesterol 200-239 mg/dLHigh cholesterol >=240 mg/dLRecommendations of the NCEP Adult Treatment Panel for thefollowing risk-cutoff thresholds for the [place] Americanpopulation. Performed By: #### L 100.0100, L501.2300, L501.9520, L500.4050, L503.0106, L500.4100 ####[facility] [address] [place], [address] Cholesterol in HDL [Mass/Vol] 46 mg/dL Normal [facility] Comment on above: Result Comment: Jazlyn onal Cholesterol Education Program (NCEP) guidelines:<40 mg/dL: Low HDL-cholesterol (major risk factor for CHD)>= 60 mg/dL: High HDL-cholesterol (negative risk factor forCHD)HDL-cholesterol is affected by a number of factors, e.g.smoking, exercise, hormones, sex and age. Performed By: #### L 100.0100, L501.2300, L501.9520, L500.4050, L503.0106, L500.4100 ####[facility] [address] [place], [address] Cholesterol in LDL [Mass/Vol] 58 mg/dL Normal [facility] Comment on above: Result Comment: Bord efrlxk=908-677 mg/dL Higher Bzia=570 mg/dL or greater Performed By: #### L 100.0100, L501.2300, L501.9520, L500.4050, L503.0106, L500.4100 ####[facility] [address] [place], [address] Cholesterol in VLDL [Mass/Vol] 24 mg/dL Normal 5-40 [facility] Comment on above: Performed By: #### L 100.0100, L501.2300, L501.9520, L500.4050, L503.0106, L500.4100 ####[facility] [address] [place], [address] Triglyceride [Mass/Vol] 122 mg/dL Normal [facility] Comment on above: Result Comment: The drugs N-Acetylcysteine and Metamizole may falselydepress this assay.Normal range: <150 mg/dLBorderline High: 150-199 mg/dLHigh: 200-499 mg/dLVery High: >500 mg/dL Performed By: #### L 100.0100, L501.2300, L501.9520, L500.4050, L503.0106, L500.4100 ####[facility] [address] [place], [address] Magnesiumon 04-16-2025 Magnesium [Mass/Vol] 1.5 mg/dL Normal 1.5-2.2 [facility] Comment on above: Performed By: #### L 506.0200, L501.5200 ####[facility] [address] [place], [place], [address] Mucus LM Ql (Urine sed)Order ed By: Erik Gomez on 04-16-2025 Mucus Ql (Urine sed) 0 SEEN /hpf [facility] Nitrite Test strip Ql (U)Ord ered By: Erik Gomez on 04-16-2025 Nitrite Ql (U) Negative Negative [facility] No Panel InformationOrdered By: Jackson Chorpa on 04-16-2025 Negative < 200 ng/mL [facility] Phosphoruson 04-16-2025 Phosphate [Mass/Vol] 4.4 mg/dL Normal 2.7-4.5 [facility] Comment on above: Performed By: #### L 100.0100, L501.2300, L501.9520, L500.4050, L503.0106, L500.4100 ####[facility] [address] [place], [place], [id number] Protein Test strip Ql (U)Ord ered By: Erik Gomez on 04-16-2025 Protein Ql (U) 15 mg/dl High Negative [facility] Screening urine fentanyl samir surementOrdered By: Jackson Chopra on 04-16-2025 fentaNYL Screen Ql (U) Negative [facility] Serum or plasma cholesterol in HDL measurement (mass/volume)Ordered By: Jackson Chopra on 04-16-2025 Cholesterol in HDL [Mass/Vol] 46 mg/dL >40 [facility] Serum or plasma cholesterol measurement (mass/volume)Ordered By: Jackson Chopra on 04-16-2025 Cholesterol [Mass/Vol] 128 mg/dL <201 [facility] Squamous epithelial cells de tection in urine sediment by light microscopyOrdered By: Erik Gomez on 04-16-2025 Epithelial cells.squamous LM Ql (Urine sed) 0-5 SEEN /hpf - [facility] TSH DL <= 0.005 mIU/L QnOrde red By: Jackson Chopra on 04-16-2025 TSH Qn 1.340 uIU/mL 0.300-4.200 [facility] Thyroid Stim Hormone (TSH)on 04-16-2025 TSH 1.340 uIU/mL Normal 0.300-4.200 [facility] Comment on above: Performed By: #### L 100.0100, L501.2300, L501.9520, L500.4050, L503.0106, L500.4100 ####[facility] [address] [place], [address] Urinalysis, Completeon 04-16 EPI,SQUAMOUS 0-5 SEEN Normal - [facility] Comment on above: Order Comment: CLEAN CATCH Performed By: #### L 400.0001 ####[facility] [address] [place], [address] WBC 0-5 SEEN Normal 0-5 [facility] Comment on above: Order Comment: CLEAN CATCH Performed By: #### L 400.0001 ####[facility] [address] [place], [address] BACTERIA 0 SEEN Normal None Seen [facility] Comment on above: Order Comment: CLEAN CATCH Performed By: #### L 400.0001 ####[facility] [address] [place], [address] Mucus Ql (Urine sed) 0 SEEN Normal [facility] Comment on above: Order Comment: CLEAN CATCH Performed By: #### L 400.0001 ####[facility] [address] [place], [address] RBC 0 SEEN Normal 0-5 [facility] Comment on above: Order Comment: CLEAN CATCH Performed By: #### L 400.0001 ####[facility] [address] [place], [address] Urine Drug Screen (VISTA)on 04-16-2025 AMPHETAMINES Negative Normal <1000 ng/mL [facility] Comment on above: Order Comment: U Performed By: #### L 501.9100, L505.5000 ####[facility] [address] [place], [address] BARBITIURATES Negative Normal < 200 ng/mL [facility] Comment on above: Order Comment: U Performed By: #### L 501.9100, L505.5000 ####[facility] [address] [place], [address] BENZODIAZIPINE Negative Normal < 200 ng/mL [facility] Comment on above: Order Comment: U Performed By: #### L 501.9100, L505.5000 ####[facility] [address] [place], [address] BUP Ur Drug Scr Negative Normal < 200 ng/mL [facility] Comment on above: Order Comment: U Performed By: #### L 501.9100, L505.5000 ####[facility] [address] [place], [address] COCAINE Negative Normal < 300 ng/mL [facility] Comment on above: Order Comment: U Performed By: #### L 501.9100, L505.5000 ####[facility] [address] [place], [address] Fentanyl Negative Normal [facility] Comment on above: Order Comment: U Performed By: #### L 501.9100, L505.5000 ####[facility] [address] [place], [address] METHADONE Negative Normal < 300 ng/mL [facility] Comment on above: Order Comment: U Performed By: #### L 501.9100, L505.5000 ####[facility] [address] [place], [address] OPIATES Positive Normal < 300 ng/mL [facility] Comment on above: Order Comment: U Result Comment: If c onfirmation testing is needed, a separate order will berequired to send out testing to the reference laboratory. Performed By: #### L 501.9100, L505.5000 ####[facility] [address] [place], [address] OXYCODONE Negative Normal < 100 ng/mL [facility] Comment on above: Order Comment: U Performed By: #### L 501.9100, L505.5000 ####[facility] [address] [place], [address] PCP Negative Normal < 25 ng/mL [facility] Comment on above: Order Comment: U Performed By: #### L 501.9100, L505.5000 ####[facility] [address] [place], [address] THC Negative Normal < 50 ng/mL [facility] Comment on above: Order Comment: U Performed By: #### L 501.9100, L505.5000 ####[facility] [address] [place], [address] Urine clarityOrdered By: Di Gomez on 04-16-2025 Clarity (U) Clear Clear [facility] Urine color determinationOrd ered By: Erik Gomez on 04-16-2025 Color (U) Yellow Yellow [facility] Urine glucose detectionOrder ed By: Erik Gomez on 04-16-2025 Glucose Ql (U) Normal mg/dl Normal [facility] Urine leukocyte esterase det ection by dipstickOrdered By: Erik Gomez on 04-16-2025 Leukocyte esterase Test strip Ql (U) 25 /ul High Negative [facility] Urine pHOrdered By: Erik Gomez on 04-16-2025 pH (U) 7.0 [pH] 5.0 - 8.0 [facility] Urine phencyclidine (PCP) de tectionOrdered By: Jackson Chopra on 04-16-2025 Phencyclidine Ql (U) Negative < 25 ng/mL [facility] Urine sediment bacteria coun t by microscopy (number/high power field)Ordered By: Erik Gomez on 04-16-2025 Bacteria LM.HPF (Urine sed) [#/Area] 0 /[HPF] None Seen [facility] Urine specific gravity measu rementOrdered By: Erik Gomez on 04-16-2025 Specific gravity (U) [Rel density] 1.005 1.002-1.030 [facility] Urine urobilinogen measureme ntOrdered By: Erik Gomez on 04-16-2025 Urobilinogen Ql (U) Normal mg/dl Normal [facility] Vitamin B12on 04-16-2025 Cobalamin (Vitamin B12) [Mass/Vol] 415 pg/mL Normal 180-914 [facility] Comment on above: Performed By: #### L 100.0100, L501.2300, L501.9520, L500.4050, L503.0106, L500.4100 ####[facility] [address] [place], [address] Vitamin B12 ser/plasOrdered By: Jackson Chopra on 04-16-2025 Cobalamin (Vitamin B12) [Mass/Vol] 415 pg/mL 180-914 [facility] White blood cell countOrdere d By: Erik Gomez on 04-16-2025 White blood cell count 0-5 SEEN /hpf 0-5 [facility] Abdomen/Pelvis W IV Cont ONL Yon 04-15-2025 Abdomen/Pelvis W IV Cont ONLY Normal [facility] Absolute lymphocyte countOrd ered By: Erik Gomez on 04-15-2025 Lymphocytes Auto (Unsp spec) [#/Vol] 2.76 10*3/uL 0.83-4.51 [facility] Anion gap in Serum or Plasma Ordered By: Erik Gomez on 04-15-2025 Anion gap [Moles/Vol] 11 mmol/L 5-15 [facility] Automated lymphocyte count a s percentage of total leukocytesOrdered By: Erik Gomez on 04-15-2025 Lymphocytes/100 WBC Auto (Unsp spec) 14.6 % Low - [facility] BUN/creatinine ratioOrdered By: Erik Gomez on 04-15-2025 Urea nitrogen/Creatinine [Mass ratio] 5.3 mg/mg Low 10- [facility] Basophil percentageOrdered B y: Erik Gomez on 04-15-2025 Basophils/100 WBC (Bld) 0.4 % 0-1 [facility] Bilirubin, totalOrdered By: Erik Gomez on 04-15-2025 Bilirubin [Mass/Vol] mg/dL 0.00-1.30 [facility] CBC W/Diff, Automatedon 03-28 Absolute Lymph 2.76 X10 3/uL Normal 0.83-4.51 [facility] Comment on above: Performed By: #### L 501.2450, L500.4050, L100.0100 ####[facility] [address] [place], [address] Absolute Neut 13.6 X10 3/uL High 2.0-7.7 [facility] Comment on above: Performed By: #### L 501.2450, L500.4050, L100.0100 ####[facility] [address] [place], [address] Basophils/100 WBC (Bld) 0.4 % Normal 0-1 [facility] Comment on above: Performed By: #### L 501.2450, L500.4050, L100.0100 ####[facility] [address] [place], [address] Eosinophils/100 WBC (Bld) 4.9 % Normal 0-5 [facility] Comment on above: Performed By: #### L 501.2450, L500.4050, L100.0100 ####[facility] [address] [place], [address] Erythrocyte distribution width (RBC) [Ratio] 14.6 % Normal 11.6-14.6 [facility] Comment on above: Performed By: #### L 501.2450, L500.4050, L100.0100 ####[facility] [address] [place], [address] Hematocrit (Bld) [Volume fraction] 33.6 % Low 37-47 [facility] Comment on above: Performed By: #### L 501.2450, L500.4050, L100.0100 ####[facility] [address] [place], [address] Hemoglobin (Bld) [Mass/Vol] 10.7 g/dL Low 12.0-15.0 [facility] Comment on above: Performed By: #### L 501.2450, L500.4050, L100.0100 ####[facility] [address] [place], [address] IG% 0.700 Normal 0.0-0.9 [facility] Comment on above: Result Comment: IG% - Immature Granulocytes (promyelocytes, myelocytes andmetamyelocytes) > 1% indicates that a LEFT SHIFT is Present. Performed By: #### L 501.2450, L500.4050, L100.0100 ####[facility] [address] [place], [address] Lymphocytes/100 WBC (Bld) 14.6 % Low 19-41 [facility] Comment on above: Performed By: #### L 501.2450, L500.4050, L100.0100 ####[facility] [address] [place], [address] MCH (RBC) [Entitic mass] 26.6 pg Low 27.0-32.0 [facility] Comment on above: Performed By: #### L 501.2450, L500.4050, L100.0100 ####[facility] [address] [place], [address] MCHC (RBC) [Mass/Vol] 31.8 g/dL Low 32-36 [facility] Comment on above: Performed By: #### L 501.2450, L500.4050, L100.0100 ####[facility] [address] [place], [address] MCV (RBC) [Entitic vol] 83.6 fL Normal 81-99 [facility] Comment on above: Performed By: #### L 501.2450, L500.4050, L100.0100 ####[facility] [address] [place], [address] Monocytes/100 WBC (Bld) 7.0 % Normal 0-10 [facility] Comment on above: Performed By: #### L 501.2450, L500.4050, L100.0100 ####[facility] [address] [place], [address] Neutrophils/100 WBC (Bld) 72.4 % High 47-70 [facility] Comment on above: Performed By: #### L 501.2450, L500.4050, L100.0100 ####[facility] [address] [place], [address] Nucleated RBC (Bld) [#/Vol] 0 10*3/uL Normal 0-5 [facility] Comment on above: Performed By: #### L 501.2450, L500.4050, L100.0100 ####[facility] [address] [place], [address] Platelet mean volume (Bld) [Entitic vol] 9.5 fL Normal 6.2-12.0 [facility] Comment on above: Performed By: #### L 501.2450, L500.4050, L100.0100 ####[facility] [address] [place], [address] Platelets (Bld) [#/Vol] 291 10*3/uL Normal 150-450 [facility] Comment on above: Performed By: #### L 501.2450, L500.4050, L100.0100 ####[facility] [address] [place], [address] RBC (Bld) [#/Vol] 4.02 10*6/uL Low 4.2-5.4 [facility] Comment on above: Performed By: #### L 501.2450, L500.4050, L100.0100 ####[facility] [address] [place], [address] RDW SD 45.1 fl High 35.1-43.9 [facility] Comment on above: Performed By: #### L 501.2450, L500.4050, L100.0100 ####[facility] [address] [place], [address] WBC (Bld) [#/Vol] 18.9 10*3/uL High 4.4-11.0 [facility] Comment on above: Performed By: #### L 501.2450, L500.4050, L100.0100 ####[facility] [address] [place], [address] Carbon dioxide, total [Moles /volume] in Central venous bloodOrdered By: Erik Gomez on 04-15-2025 CO2 [Moles/Vol] 27.4 mmol/L 21.0-32.0 [facility] Chloride assayOrdered By: John Gomez on 04-15-2025 Chloride [Moles/Vol] 99 mmol/L 98-108 [facility] Comprehensive Metabolic Prof ilon 04-15-2025 Albumin [Mass/Vol] 3.4 g/dL Normal 3.4-4.8 [facility] Comment on above: Performed By: #### L 501.2450, L500.4050, L100.0100 ####[facility] [address] [place], [address] Albumin/Globulin [Mass ratio] 1.0 {ratio} Normal 0.9-2.4 [facility] Comment on above: Performed By: #### L 501.2450, L500.4050, L100.0100 ####[facility] [address] [place], [address] ALK PHOS 127 U/L High 35-104 [facility] Comment on above: Performed By: #### L 501.2450, L500.4050, L100.0100 ####[facility] [address] [place], [address] ALT [Catalytic activity/Vol] 13 U/L Normal <=34 [facility] Comment on above: Performed By: #### L 501.2450, L500.4050, L100.0100 ####[facility] [address] [place], [address] AST [Catalytic activity/Vol] 16 U/L Normal <=31 [facility] Comment on above: Performed By: #### L 501.2450, L500.4050, L100.0100 ####[facility] [address] [place], [address] BUN/CRE 5.3 RATIO Low 10-20 [facility] Comment on above: Performed By: #### L 501.2450, L500.4050, L100.0100 ####[facility] [address] [place], [address] Calcium [Mass/Vol] 9.2 mg/dL Normal 7.6-11.0 [facility] Comment on above: Performed By: #### L 501.2450, L500.4050, L100.0100 ####[facility] [address] [place], [address] Chloride [Moles/Vol] 99 mmol/L Normal 98-108 [facility] Comment on above: Performed By: #### L 501.2450, L500.4050, L100.0100 ####[facility] [address] [place], [address] CO2 [Moles/Vol] 27.4 mmol/L Normal 21.0-32.0 [facility] Comment on above: Performed By: #### L 501.2450, L500.4050, L100.0100 ####[facility] [address] [place], [address] Creatinine [Mass/Vol] 0.69 mg/dL Low 0.70-1.20 [facility] Comment on above: Performed By: #### L 501.2450, L500.4050, L100.0100 ####[facility] [address] [place], [address] ECRCL 70.83 ml/min Normal 50-250 [facility] Comment on above: Performed By: #### L 501.2450, L500.4050, L100.0100 ####[facility] [address] [place], [address] GAP 11 Normal 5-15 [facility] Comment on above: Performed By: #### L 501.2450, L500.4050, L100.0100 ####[facility] [address] [place], [address] GFR/1.73 sq M.predicted among non-blacks MDRD (S/P/Bld) [Vol rate/Area] 99 mL/min/{1.73_m2} Normal >60 [facility] Comment on above: Result Comment: mL/m in/1.73m2 CKD-EPI Creatinine Equation (2020) Performed By: #### L 501.2450, L500.4050, L100.0100 ####[facility] [address] [place], [address] Globulin (S) [Mass/Vol] 3.5 g/dL Normal 2.2-4.2 [facility] Comment on above: Performed By: #### L 501.2450, L500.4050, L100.0100 ####[facility] [address] [place], [address] Glucose [Mass/Vol] 111 mg/dL High 70-99 [facility] Comment on above: Performed By: #### L 501.2450, L500.4050, L100.0100 ####[facility] [address] [place], [address] Potassium [Moles/Vol] 3.6 mmol/L Normal 3.3-5.1 [facility] Comment on above: Result Comment: Hemo lysis present, Results??could be affected.?? Performed By: #### L 501.2450, L500.4050, L100.0100 ####[facility] [address] [place], [address] Sodium [Moles/Vol] 138 mmol/L Normal 133-145 [facility] Comment on above: Performed By: #### L 501.2450, L500.4050, L100.0100 ####[facility] [address] [place], [address] T BILI < 0.15 Normal 0.00-1.30 [facility] Comment on above: Performed By: #### L 501.2450, L500.4050, L100.0100 ####[facility] [address] [place], [address] T PROT 6.9 g/dL Normal 5.9-8.4 [facility] Comment on above: Performed By: #### L 501.2450, L500.4050, L100.0100 ####[facility] [address] [place], [address] Urea nitrogen [Mass/Vol] 4 mg/dL Normal 4-19 [facility] Comment on above: Performed By: #### L 501.2450, L500.4050, L100.0100 ####[facility] [address] [place], [place], [address] Emergency Department Summary on 04-15-2025 Emergency Department Summary Normal [facility] Eosinophil percentageOrdered By: Erik Gomez on 04-15-2025 Eosinophils/100 WBC (Bld) 4.9 % 0-5 [facility] Erythrocyte distribution wid th ratioOrdered By: Erik Gomez on 04-15-2025 Erythrocyte distribution width (RBC) [Ratio] 14.6 % 11.6-14.6 [facility] Erythrocyte distribution wid th standard deviationOrdered By: Erik Gomez on 04-15-2025 Erythrocyte distribution width (RBC) [Ratio] 45.1 fl High 35.1-43.9 [facility] Glomerular filtration rate ( GFR) estimation/1.73 sq m using serum, plasma, or whole bOrdered By: Erik Gomez on 04-15-2025 GFR/1.73 sq M.predicted among non-blacks MDRD (S/P/Bld) [Vol rate/Area] 99 mL/min/{1.73_m2} >60 [facility] Hematocrit Auto (Bld) [Volum e fraction]Ordered By: Erik Gomez on 04-15-2025 Hematocrit (Bld) [Volume fraction] 33.6 % Low 37-47 [facility] Hemoglobin measurementOrdere d By: Erik Gomez on 04-15-2025 Hemoglobin (Bld) [Mass/Vol] 10.7 g/dL Low 12.0-15.0 [facility] Immature granulocytes/100 WB C Auto (Bld)Ordered By: Erik Gomez on 04-15-2025 Immature granulocytes/100 WBC (Bld) 0.700 % 0.0-0.9 [facility] Lipaseon 04-15-2025 Lipase [Catalytic activity/Vol] 239 U/L High 13-75 [facility] Comment on above: Result Comment: Jenny capellan note:LIPASE revised reference range effective 23.New Lipase methodology. Expected to produce lower valuesthan the previous assay method.NEW Reference Range: 13 - 75 U/L Performed By: #### L 501.2450, L500.4050, L100.0100 ####[facility] [address] [place], [place], [address] MCV (mean corpuscular volume ) determinationOrdered By: Erik Gomez on 04-15-2025 MCV (RBC) [Entitic vol] 83.6 fL 81-99 [facility] Magnesium measurement (mass/ volume)Ordered By: Jackson Chopra on 04-15-2025 Magnesium (Unsp spec) [Mass/Vol] 1.5 mg/dL 1.5-2.2 [facility] Mean corpuscular hemoglobin (MCH) determinationOrdered By: Erik Gomez on 04-15-2025 MCH (RBC) [Entitic mass] 26.6 pg Low 27.0-32.0 [facility] Monocyte percentageOrdered B y: Erik Gomez on 04-15-2025 Monocytes/100 WBC (Bld) 7.0 % 0-10 [facility] Neutrophil percentageOrdered By: Erik Gomez on 04-15-2025 Neutrophils/100 WBC (Bld) 72.4 % High 47-70 [facility] No Panel InformationOrdered By: Erik Gomez on 04-15-2025 16 U/L <32 [facility] Platelet countOrdered By: John Gomez on 04-15-2025 Platelets (Bld) [#/Vol] 291 10*3/uL 150-450 [facility] Potassium measurement (mass/ volume)Ordered By: Erik Gomez on 04-15-2025 Potassium (Unsp spec) [Mass/Vol] 3.6 mmol/L 3.3-5.1 [facility] RBC Auto (Bld) [#/Vol]Ordere d By: Erik Gomez on 04-15-2025 RBC (Bld) [#/Vol] 4.02 10*6/uL Low 4.2-5.4 [facility] Serum creatinine measurement (mass/volume)Ordered By: Erik Gomez on 04-15-2025 Creatinine [Mass/Vol] 0.69 mg/dL Low 0.70-1.20 [facility] Serum globulin measurementOr dered By: Erik Gomez on 04-15-2025 Globulin (S) [Mass/Vol] 3.5 g/dL 2.2-4.2 [facility] Serum glucose measurement (m ass/volume)Ordered By: Erik Gomez on 04-15-2025 Glucose [Mass/Vol] 111 mg/dL High 70-99 [facility] Serum or plasma alanine pimentel otransferase (ALT) measurementOrdered By: Erik Gomez on 04-15-2025 ALT [Catalytic activity/Vol] 13 U/L <35 [facility] Serum or plasma albumin esthela urement (mass/volume)Ordered By: Erik Gomez on 04-15-2025 Albumin [Mass/Vol] 3.4 g/dL 3.4-4.8 [facility] Serum or plasma albumin/glob ulin mass ratioOrdered By: Erik Gomez on 04-15-2025 Albumin/Globulin [Mass ratio] 1.0 {ratio} 0.9-2.4 [facility] Serum or plasma alkaline jose sphatase measurementOrdered By: Erik Gmoez on 04-15-2025 ALP [Catalytic activity/Vol] 127 U/L High 35-104 [facility] Serum or plasma calcium esthela urement (mass/volume)Ordered By: Erik Gomez on 04-15-2025 Calcium [Mass/Vol] 9.2 mg/dL 7.6-11.0 [facility] Serum or plasma ethanol esthela urement (mass/volume)Ordered By: Jackson Chopra on 04-15-2025 Ethanol [Mass/Vol] mg/dL <10.1 [facility] Serum or plasma urea nitroge n measurement (mass/volume)Ordered By: Erik Gomez on 04-15-2025 Urea nitrogen [Mass/Vol] 4 mg/dL 4- [facility] Sodium levelOrdered By: Meet Gomez on 04-15-2025 Sodium [Moles/Vol] 138 mmol/L 133-145 [facility] Total proteinOrdered By: Di cantujeovany Patricia on 04-15-2025 Protein [Mass/Vol] 6.9 g/dL 5.9-8.4 [facility] White blood cell (WBC) count Ordered By: Erik Gomez on 04-15-2025 WBC (Bld) [#/Vol] 18.9 10*3/uL High 4.4-11.0 [facility] CNPNon 04-11-2025 CNPN Telephone (PODCCP) -------- GRACIE BANUELOS ([id number]) 1965 F Date Time Provider Department 04/11/25 MISBAH ELKINS PODCCP During your visit today, we recorded the following information about you: Yuly France 04/11/2025 9:34 AM Signed Transitional Care Management (TCM) [facility] Provider Action / FYI: na SUMMARY: Outreach type: INITIAL OUTREACH Discharge Network Status: In-Network Discharge Source of Patient: [facility] TCM Discharge Report Patient discharged from [facility] on 03.23.25. Admitted for acute [...] stress female [N39.3] 11/24/2014 HPV test positive [[id number]] 11/24/2014 Alcohol dependence in remission (HCC) [F10.21] [...] with hypox*03/15 (more content not included)... Normal [facility] CNOVon 04-10-2025 CNOV Office Visit (INTMWS ) -------- GRACIE BANUELOS ([id number]) 1965 F Date Time Provider Department 04/10/25 1:40 PM NICOLAS GREER INTMWS During your visit today, we recorded the following information about you: Pulse Respiration Blood pressure Weight 100/minute 16/minute 102/82 56 kg Nicolas Greer APRN.BIT SANDER 04/10/2025 2:31 PM Signed Subjective Patient ID: [...] stent placement 03/10. Patient was transferred from [facility]. There she was found to have acute pancreatitis. She had a stent placed in the body of the pancreas however on CT scan at the other hospital she had new peripancreatic inflammation. She was also experiencing acute hypoxic respiratory failure and was emergently intubated and transferred to [facility] ICU. 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 Pancreatic Stent Placement: - Stent placed by Dr. Garrido at [facility]. - Persistent abdominal pain radiating to [...] following stent placement led to hospitalization at [facility], then transferred to [facility] due to fluid overload and septic [...] - 6.0 (more content not included)... Normal [facility] 04-10-2025 CNPN Telephone (PODCCP) -------- GRACIE BANUELOS ([id number]) 1965 F Date Time Provider Department 04/10/25 MISBAH ELKINS PODCCP During your visit today, we recorded the following information about you: Yuly France 04/10/2025 9:37 AM Signed Transitional Care Management (TCM) [facility] Provider Action / FYI: na SUMMARY: Outreach type: INITIAL OUTREACH Discharge Network Status: In-Network Discharge Source of Patient: [facility] TCM Discharge Report Patient discharged from [facility] on 03.23.25. Admitted for acute [...] stress female [N39.3] 11/24/2014 HPV test positive [[id number]] 11/24/2014 Alcohol dependence in remission (HCC) [F10.21] [...] [K85.90, K8*0 (more content not included)... Normal [facility] Pulmonary Visit Reporton [facility] (INTMWS) -------- GRACIE BANUELOS ([id number]) 1965 F Date Time Provider Department 04/04/25 [...] stress female [N39.3] 11/24/2014 HPV test positive [[id number]] 11/24/2014 Alcohol dependence in remission (HCC) [F10.21] [...] Pneumonia [ (more content not included)... Normal [facility] CNPN Telephone (PODCCP) -------- GRACIE BANUELOS ([id number]) 1965 F Date Time Provider Department 04/04/25 MISBAH ELKINS PODCCP During your visit today, we recorded the following information about you: Yuly France 04/04/2025 9:47 AM Signed Transitional Care Management (TCM) [facility] Provider Action / FYI: na SUMMARY: Outreach type: INITIAL OUTREACH Discharge Network Status: In-Network Discharge Source of Patient: [facility] TCM Discharge Report Patient discharged from [facility] on 03.23.25. Admitted for acute [...] stress female [N39.3] 11/24/2014 HPV test positive [[id number]] 11/24/2014 Alcohol dependence in remission (HCC) [F10.21] [...] [K85.90, K8 (more content not included)... [facility] GRACIE BANUELOS ([id number]) 1965 F Date Time Provider Department 04/04/25 MISBAH ELKINS 4CQ During your visit today, we recorded the following information about you: Rosy Blancas 04/04/2025 3:15 PM Signed Transitional Care Management (TCM) [facility] Provider Action / FYI: NA SUMMARY: Outreach type: INITIAL OUTREACH Discharge Network Status: In-Network Discharge Source of Patient: [facility] TCM Discharge Report Patient discharged from [facility] on 03.23.25. Admitted for acute on chronic respiratory failure with hypoxia. . . Contact made with patient: No, for Follow-up - end outreach and close encounter. Maureencherry Blancas April 04, 2025 3:15 PM Allergies [...] stress female [N39.3] 11/24/2014 HPV test positive [[id number]] 11/24/2014 Alcohol dependence in remission (HCC) [F10.21] [...] [K85.90, K8 (more content not included)... [facility] GRACIE BANUELOS ([id number]) 1965 F Date Time Provider Department 04/04/25 [...] addiction Date Reviewed: 03/23/2025 Reviewed by: Kerri Aaron, SARWAT - Fully Assessed Reason for Visit: Appointment [...] stress female [N39.3] 11/24/2014 HPV test positive [[id number]] 11/24/2014 Alcohol dependence in remission (HCC) [F10.21] [...] Number: 9 (more content not included)... 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 Patient is not sure if it [...] voiced it this could be done at [facility]- I explained that if there was an advanced endoscopist available - yes. She could also have this performed at [facility] for stent management- if this was closer for her- She will notify us. MCKENNA Le Ida 04/07/2025 11:23 AM Signed This patient is on our call list / scheduling pool to schedule at [facility]. We do not have Monitored Anesthesia Care available in [place]. we only do procedural sedation and will not do ERCP in our out patient surgery center. Please have someone from your office explain this to patient and schedule appropriately. When I spoke with patient she was very confused about the procedure she thought she was getting an EGD under procedural sedation. Call patient @ [phone] Allergies As of Date: 03/29/2025 Noted Allergy [...] [K70.10] 11/16/2013 (more content not included)... Normal [facility] 03-28-2025 CNPN Telephone (PODCCP) -------- GRACIE BANUELOS ([id number]) 1965 F Date Time Provider Department 03/28/25 HERMAN NEVAREZ PODCCP During your visit today, we recorded the following information about you: Herman Nevarez RN 03/28/2025 1:05 PM Signed Transitional Care Management (TCM) [facility] Provider Action / FYI: N/A SUMMARY: Outreach type: INITIAL OUTREACH Discharge Network Status: In-Network Discharge Source of Patient: [facility] Discharge Report Patient discharged from [facility] on 03/23/25. Admitted for acute [...] Assessed Reason for Visit: Transition Of Care [3963] Cmt: RC f/u discharge LVM Prescriptions as [...] stress female [N39.3] 11/24/2014 HPV test positive [[id number]] 11/24/2014 Alcohol dependence in remission (HCC) [F10.21] [...] chronic pancre (more content not included)... Normal [facility] Basic metabolic 2000 panelon 03-23-2025 Anion gap [Moles/Vol] 7 mmol/L Normal 5-16 [facility] Comment on above: Order Comment: Speci men Type: BLOOD SPECIMEN Ordering Facility: [facility] Address: [address] [place] [address] Performed By: #### 2 4323-8, 3040-3, 51451-5, 2777-1, 257-8 #### [facility] CLIA [id number] [address] [place], [place] [address] [place] Calcium [Mass/Vol] 9.2 mg/dL Normal 8.5-10.5 [facility] Comment on above: Order Comment: Speci men Type: BLOOD SPECIMEN Ordering Facility: [facility] Address: [address] [place] [address] Performed By: #### 2 4323-8, 3040-3, 66218-3, 7-1, 2571-8 #### [facility] CLIA [id number] [address] [place] [address] [place] Chloride [Moles/Vol] 101 mmol/L Normal 98-107 [facility] Comment on above: Order Comment: Speci men Type: BLOOD SPECIMEN Ordering Facility: [facility] Address: [address] [place] [address] Performed By: #### 2 4323-8, 3040-3, 60561-0, 7-1, 257-8 #### [facility] CLIA [id number] [address] [place], [place] [address] [place] CO2 [Moles/Vol] 29 mmol/L Normal 21-32 [facility] Comment on above: Order Comment: Speci men Type: BLOOD SPECIMEN Ordering Facility: [facility] Address: [address] [place] [address] Performed By: #### 2 4323-8, 3040-3, 67938-9, 7-1, 257-8 #### [facility] CLIA [id number] [address] [place], [place] [address] [place] Creatinine [Mass/Vol] 0.89 mg/dL Normal 0.51-0.95 [facility] Comment on above: Order Comment: Speci men Type: BLOOD SPECIMEN Ordering Facility: [facility] Address: [address] [place] [address] Result Comment: Gretta ents receiving either N-Acetylcysteine (NAC) or Metamizole prior to venipuncture, may have falsely depressed results. Performed By: #### 2 4323-8, 3040-3, 48859-9, 2776-1, 257-8 #### [facility] CLIA [id number] [address] [place], [place] [address] [place] Creatinine and Glomerular filtration rate.predicted panel (S/P/Bld) 74 mL/min/1.73m??? Normal >=60 [facility] Comment on above: Order Comment: Speci men Type: BLOOD SPECIMEN Ordering Facility: [facility] Address: [address] [place] [address] Result Comment: Pavan mated Glomerular Filtration Rate [...] GFR. Performed By: #### 2 4323-8, 3040-3, 42313-3, 2776-1, 2571-04 #### [facility] CLIA [id number] [address] [place], [place] [address] [place] Glucose [Mass/Vol] 109 mg/dL High 70-100 [facility] Comment on above: Order Comment: Reggie fajardo Type: BLOOD SPECIMEN Ordering Facility: [facility] Address: [address] [id number] Result Comment: The [place] [employer] (ADA) provides guidance for cutoff [...] Standards of Medical Care in Diabetes 2016, [place] [employer]. Diabetes Care. 2016.39(Suppl 1). Results may be falsely elevated after the administration of Sulfapyridine. Results may be falsely depressed after the administration of Sulfasalazine. Performed By: #### 2 4323-8, 3040-3, 24956-7, 2776-, 2571-04 #### [facility] CLIA [id number] [address] [place], [place] [address] [place] Potassium [Moles/Vol] 4.9 mmol/L Normal 3.5-5.1 [facility] Comment on above: Order Comment: Reggie fajardo Type: BLOOD SPECIMEN Ordering Facility: [facility] Address: [address] [place] [address] Performed By: #### 2 4323-8, 3040-3, 90486-5, 7-1, 257-8 #### [facility] CLIA [id number] [address] [place] [address] [place] Sodium [Moles/Vol] 137 mmol/L Normal 136-145 [facility] Comment on above: Order Comment: Speci men Type: BLOOD SPECIMEN Ordering Facility: [facility] Address: [address] [place], [place] [address] Performed By: #### 2 4323-8, 3040-3, 78411-4, 7-1, 257-8 #### [facility] CLIA [id number] [address] [place], [place] [address] [place] Urea nitrogen [Mass/Vol] 15 mg/dL Normal 04-22 [facility] Comment on above: Order Comment: Speci men Type: BLOOD SPECIMEN Ordering Facility: [facility] Address: [address] [place] [address] Performed By: #### 2 4323-8, 0-3, 09865-3, 2776-1, 2570-8 #### [facility] CLIA [id number] [address] [place], [place] [address] [place] CBC panel Auto (Bld)on 03-23 Erythrocyte distribution width (RBC) [Ratio] 15.8 % High 11.5-15.0 [facility] Comment on above: Order Comment: Speci men Type: BLOOD SPECIMEN Ordering Facility: [facility] Address: [address] [place] [address] Performed By: #### 2 4323-8, 3040-3, 13794-5, 2776-1, 257-8 #### [facility] CLIA [id number] [address] [place], [place] [address] [place] Hematocrit (Bld) [Volume fraction] 30.7 % Low 36.0-46.0 [facility] Comment on above: Order Comment: Speci men Type: BLOOD SPECIMEN Ordering Facility: [facility] Address: [address] [place], [place] [address] Performed By: #### 2 4323-8, 3040-3, 51393-3, 2777-1, 2578 #### [facility] CLIA [id number] [address] [place], [place] [address] [employer] [place] Hemoglobin (Bld) [Mass/Vol] 9.3 g/dL Low 11.5-15.5 [facility] Comment on above: Order Comment: Speci men Type: BLOOD SPECIMEN Ordering Facility: [facility] Address: [address] [place] [address] Performed By: #### 2 4323-8, 3040-3, 91483-1, 277-1, 257-8 #### [facility] CLIA [id number] [address] [place] [address] OF [place] MCH (RBC) [Entitic mass] 26.7 pg Normal 26.0-34.0 [facility] Comment on above: Order Comment: Speci men Type: BLOOD SPECIMEN Ordering Facility: [facility] Address: [address] [place] [address] Performed By: #### 2 4323-8, 3040-3, 76780-5, 277-1, 257-8 #### [facility] CLIA [id number] [address] [place] [address] STATES OF [facility] MCHC (RBC) [Mass/Vol] 30.3 g/dL Low 30.5-36.0 [facility] Comment on above: Order Comment: Speci men Type: BLOOD SPECIMEN Ordering Facility: [facility] Address: [address] [place] [address] Performed By: #### 2 4323-8, 3040-3, 33423-2, 277-1, 257-8 #### [facility] CLIA [id number] [address] [place] [address] OF [facility] MCV (RBC) [Entitic vol] 88.2 fL Normal 80.0-100.0 [facility] Comment on above: Order Comment: Speci men Type: BLOOD SPECIMEN Ordering Facility: [facility] Address: [address] [place] [address] [place] [address] Performed By: #### 2 4323-8, 3040-3, 74132-2, 2776-1, 257-8 #### [facility] CLIA [id number] [address] [place], [place] [address] [place] Nucleated RBC (Bld) [#/Vol] 10*3/uL Normal <0.01 [facility] Comment on above: Order Comment: Speci men Type: BLOOD SPECIMEN Ordering Facility: [facility] Address: [address] [place], [place] [address] Performed By: #### 2 4323-8, 3040-3, 34179-7, 2776-1, 2570-8 #### [facility] CLIA [id number] [address] [place], [place] [address] [place] Platelet mean volume (Bld) [Entitic vol] 10.4 fL Normal 9.0-12.7 [facility] Comment on above: Order Comment: Speci men Type: BLOOD SPECIMEN Ordering Facility: [facility] Address: [address] [place], [place] [address] Performed By: #### 2 4323-8, 3040-3, 23468-1, 2776-1, 2570-8 #### [facility] CLIA [id number] [address] [place], [place] [address] [place] Platelets (Bld) [#/Vol] 373 10*3/uL Normal 150-400 [facility] Comment on above: Order Comment: Speci men Type: BLOOD SPECIMEN Ordering Facility: [facility] Address: [address] [place], [place] [address] Performed By: #### 2 4323-8, 3040-3, 42154-5, 2776-1, 2570-8 #### [facility] CLIA [id number] [address] [place], [place] [address] [place] RBC (Bld) [#/Vol] 3.48 10*6/uL Low 3.90-5.20 [facility] Comment on above: Order Comment: Speci men Type: BLOOD SPECIMEN Ordering Facility: [facility] Address: [address] [place] [address] Performed By: #### 2 4323-8, 3040-3, 42511-2, 2777-1, 257-8 #### [facility] CLIA [id number] [address] [place], [place] [address] [place] WBC (Bld) [#/Vol] 16.85 10*3/uL High 3.70-11.00 [facility] Comment on above: Order Comment: Speci men Type: BLOOD SPECIMEN Ordering Facility: [facility] Address: [address] [place] [address] Performed By: #### 2 4323-8, 3040-3, 85827-1, 2777-1, 257-8 #### [facility] CLIA [id number] [address] [place] [address] [facility] CNDSon 03-23-2025 CNDS HNO ID: [id number] Author: GURJIT RAYO MD Service: Hospital Medicine [...] stent placement 03/10. Patient was transferred from [facility]. There she was found to have acute pancreatitis. She had a stent placed in the body of the pancreas however on CT scan at the other hospital she had new peripancreatic inflammation. She was alsoexperiencing acute hypoxic respiratory failure and was emergently intubated and transferred to [facility] ICU. 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 Transitions of Care Critical Issues: N/a LABS [...] TO PATIENT: Please (more content not included)... [facility] CONSULT PROGon 03-23-2025 CONSULT PROG HNO ID: [id number] Author: ESME HA APRN.COMPANY MARKER Service: Pulmonary Disease Author Type: Nurse Practitioner [...] Stage 3 severe COPD by GOLD classification ([facility]) 2018 Tobacco use greater than 30 years [...] mg tab(s) (ZOF (more content not included)... [facility] 03-23 Magnesium [Mass/Vol] 1.8 mg/dL Normal 1.6-2.6 [facility] Comment on above: Order Comment: Reggie fajardo Type: BLOOD SPECIMEN Ordering Facility: [facility] Address: [address] [place] [address] Performed By: #### 2 4323-8, 3040-3, 10467-5, 2777-1, 2571-8 #### [facility] CLIA [id number] [address] [place] [address] NT-proBNP [facility] 03-23 Natriuretic peptide.B prohormone N-Terminal [Mass/Vol] 1171 pg/mL High <125 [facility] Comment on above: Order Comment: Reggie fajardo Type: BLOOD SPECIMEN Ordering Facility: [facility] Address: [address] [place] [address] Result Comment: NT-p roBNP results of less than 300 pg/mL likely rules out acute congestive heart failure with 99% predictive value. NOTE: These cutoff points are suggested for ACUTE CHF DIAGNOSIS only Less than 50 years\X09\ Greater than 450 pg/mL 50 - 75 years\X09\\X09\ Greater than 900 pg/mL Greater than 75 years\X09\ Greater than 1800 pg/mL Performed By: #### 2 4323-8, 3040-3, 17842-8, 2777-1, 2571-8 #### [facility] CLIA [id number] [address] [place], [place] [address] [facility] NUTRITIONon 03-23-2025 NUTRITION HNO ID: [id number] Author: KIRSTEN GARCIA RD Service: ? Author [...] Weight Type: Current weight Estimated kilocalorie needs: 6635-5351 Calorie Calculation Method: Barton-. Cynthia (with activity factor) Estimated protein needs (grams): [...] March 23, 2025 TIME: 9:31 AM Normal [facility] Basic metabolic 2000 panelon 03-22-2025 Anion gap [Moles/Vol] 9 mmol/L Normal 5-16 [facility] Comment on above: Order Comment: Reggie fajardo Type: BLOOD SPECIMEN Ordering Facility: [facility] Address: [address] [place] [address] Performed By: #### 2 4323-8, 3040-3, 26819-4, 2777-1, 2571-8 #### [facility] CLIA [id number] [facility] [place] [address] [place] Calcium [Mass/Vol] 9.6 mg/dL Normal 8.5-10.5 [facility] Comment on above: Order Comment: Speci men Type: BLOOD SPECIMEN Ordering Facility: [facility] Address: [address] [place], [place] [address] Performed By: #### 2 4323-8, 3040-3, , 2776-09, 2571-04 #### [facility] CLIA [id number] [address] [place] [address] [place] Chloride [Moles/Vol] 99 mmol/L Normal 98-107 [facility] Comment on above: Order Comment: Speci men Type: BLOOD SPECIMEN Ordering Facility: [facility] Address: [address] [place], [place] [address] Performed By: #### 2 4323-8, 0-3, , 2776-09, 2571-04 #### [facility] CLIA [id number] [address] [place] [address] [place] CO2 [Moles/Vol] 29 mmol/L Normal 21-32 [facility] Comment on above: Order Comment: Speci men Type: BLOOD SPECIMEN Ordering Facility: [facility] Address: [address] [place], [place] [address] Performed By: #### 2 4323-8, 3039-3, , 2776-09, 2571-04 #### [facility] CLIA [id number] [address] [place] [address] [place] Creatinine [Mass/Vol] 0.77 mg/dL Normal 0.51-0.95 [facility] Comment on above: Order Comment: Speci men Type: BLOOD SPECIMEN Ordering Facility: [facility] Address: [address] [place], [place] [address] Result Comment: Gretta ents receiving either N-Acetylcysteine (NAC) or Metamizole prior to venipuncture, may have falsely depressed results. Performed By: #### 2 4323-8, 3040-3, 69478-3, 2776-09, 2571-04 #### [facility] CLIA [id number] [address] [place] [address] [place] Creatinine and Glomerular filtration rate.predicted panel (S/P/Bld) 88 mL/min/1.73m??? Normal >=60 [facility] Comment on above: Order Comment: Reggie fajardo Type: BLOOD SPECIMEN Ordering Facility: [facility] Address: [address] [place] [id number] Result Comment: Pavan mated Glomerular Filtration Rate [...] GFR. Performed By: #### 2 4323-8, 3040-3, 53826-3, 2777-1, 2570-8 #### [facility] CLIA [id number] [address] [place] [address] [place] Glucose [Mass/Vol] 102 mg/dL High 70-100 [facility] Comment on above: Order Comment: Reggie fajardo Type: BLOOD SPECIMEN Ordering Facility: [facility] Address: [address] [place] [id number] Result Comment: The [place] Diabetes Association (ADA) provides guidance for cutoff [...] Standards of Medical Care in Diabetes 2016, [place] [employer]. Diabetes Care. 2016.39(Suppl 1). Results may be falsely elevated after the administration of Sulfapyridine. Results may be falsely depressed after the administration of Sulfasalazine. Performed By: #### 2 4323-8, 3040-3, 13917-4, 2777-1, 2570-8 #### [facility] CLIA [id number] [address] [place], [place] [address] [place] Potassium [Moles/Vol] 4.9 mmol/L Normal 3.5-5.1 [facility] Comment on above: Order Comment: Speci men Type: BLOOD SPECIMEN Ordering Facility: [facility] Address: [address] [place], [place] [address] Performed By: #### 2 4323-8, 3040-3, 43531-9, 277-1, 257-8 #### [facility] CLIA [id number] [address] [place], [place] [address] [place] Sodium [Moles/Vol] 137 mmol/L Normal 136-145 [facility] Comment on above: Order Comment: Speci men Type: BLOOD SPECIMEN Ordering Facility: [facility] Address: [address] [place] [address] Performed By: #### 2 4323-8, 3040-3, 48783-7, 277-1, 2570-8 #### [facility] CLIA [id number] [address] [place], [place] [address] [place] Urea nitrogen [Mass/Vol] 12 mg/dL Normal 7-26 [facility] Comment on above: Order Comment: Speci men Type: BLOOD SPECIMEN Ordering Facility: [facility] Address: [address] [place] [address] Performed By: #### 2 4323-8, 3040-3, 07191-8, 2776-1, 2570-8 #### [facility] CLIA [id number] [address] [place], [place] [address] [place] CBC panel Auto (Bld)on 03-22 Erythrocyte distribution width (RBC) [Ratio] 15.4 % High 11.5-15.0 [facility] Comment on above: Order Comment: Speci men Type: BLOOD SPECIMEN Ordering Facility: [facility] Address: [address] [place] [address] Performed By: #### 2 4323-8, 3040-3, 07770-3, 277-1, 257-8 #### [facility] CLIA [id number] [address] [place] [address] [place] Hematocrit (Bld) [Volume fraction] 33.7 % Low 36.0-46.0 [facility] Comment on above: Order Comment: Speci men Type: BLOOD SPECIMEN Ordering Facility: [facility] Address: [address] [place] [address] Performed By: #### 2 4323-8, 3040-3, 99696-9, 2776-09, 2571-04 #### [facility] CLIA [id number] [address] [place], [place] [address] [place] Hemoglobin (Bld) [Mass/Vol] 10.2 g/dL Low 11.5-15.5 [facility] Comment on above: Order Comment: Speci men Type: BLOOD SPECIMEN Ordering Facility: [facility] Address: [address] [place] [address] Performed By: #### 2 4323-8, 3040-3, 92934-3, 27703-28, 2571-04 #### [facility] CLIA [id number] [address] [place], [place] [address] [place] MCH (RBC) [Entitic mass] 26.4 pg Normal 26.0-34.0 [facility] Comment on above: Order Comment: Speci men Type: BLOOD SPECIMEN Ordering Facility: [facility] Address: [address] [place] [address] Performed By: #### 2 4323-8, 3040-3, 15331-2, 2776-09, 2571-04 #### [facility] CLIA [id number] [address] [place], [place] [address] [place] MCHC (RBC) [Mass/Vol] 30.3 g/dL Low 30.5-36.0 [facility] Comment on above: Order Comment: Speci men Type: BLOOD SPECIMEN Ordering Facility: [facility] Address: [address] [place] [address] Performed By: #### 2 4323-8, 3040-3, 43747-5, 2777-1, 257-8 #### [facility] CLIA [id number] [address] [place] [address] [place] MCV (RBC) [Entitic vol] 87.3 fL Normal 80.0-100.0 [facility] Comment on above: Order Comment: Speci men Type: BLOOD SPECIMEN Ordering Facility: [facility] Address: [address] [place], [place] [address] Performed By: #### 2 4323-8, 3040-3, 04963-2, 7-1, 257-8 #### [facility] CLIA [id number] [address] [place] [address] [place] Nucleated RBC (Bld) [#/Vol] 10*3/uL Normal <0.01 [facility] Comment on above: Order Comment: Speci men Type: BLOOD SPECIMEN Ordering Facility: [facility] Address: [address] [place], [place] [address] Performed By: #### 2 4323-8, 3040-3, 56481-1, 7-1, 257-8 #### [facility] CLIA [id number] [address] [place] [address] [place] Platelet mean volume (Bld) [Entitic vol] 10.2 fL Normal 9.0-12.7 [facility] Comment on above: Order Comment: Speci men Type: BLOOD SPECIMEN Ordering Facility: [facility] Address: [address] [place] [address] Performed By: #### 2 4323-8, 3040-3, 65029-7, 7-1, 257-8 #### [facility] CLIA [id number] [address] [place] [address] [place] Platelets (Bld) [#/Vol] 411 10*3/uL High 150-400 [facility] Comment on above: Order Comment: Speci men Type: BLOOD SPECIMEN Ordering Facility: [facility] Address: [address] [place], [place] [address] Performed By: #### 2 4323-8, 3040-3, 59989-5, 2777-1, 2571-8 #### [facility] CLIA [id number] [address] [place], [place] [address] [employer] [place] RBC (Bld) [#/Vol] 3.86 10*6/uL Low 3.90-5.20 [facility] Comment on above: Order Comment: Speci men Type: BLOOD SPECIMEN Ordering Facility: [facility] Address: [address] [place] [address] Performed By: #### 2 4323-8, 3040-3, 63469-3, 2777-1, 2571-8 #### [facility] CLIA [id number] [address] [place], [place] [address] [employer] OF [facility] WBC (Bld) [#/Vol] 17.90 10*3/uL High 3.70-11.00 [facility] Comment on above: Order Comment: Speci men Type: BLOOD SPECIMEN Ordering Facility: [facility] Address: [address] [place] [address] Performed By: #### 2 4323-8, 3040-3, 05057-1, 2777-1, 2571-8 #### [facility] CLIA [id number] [address] [place], [place] [address] [facility] CONSULT PROGon 03-22-2025 CONSULT PROG HNO ID: [id number] Author: ESME HA APRN.COMPANY MARKER Service: Pulmonary Disease Author Type: Nurse Practitioner [...] Alcoholic hepatitis (HCC) 05/18/2012 Alcoholic liver disease ([facility]) 11/16/2013 Anemia Anxiety with depression Arthritis Asthma ([facility]) Chronic hypoxemic respiratory failure ([facility]) COPD (chronic obstructive pulmonary disease) ([facility]) 05/25/2012 DDD (degenerative disc disease), cervical 09/03/2018 [...] to infectious organism 2017 Severe protein-calorie malnutrition ([facility]) 01/07/2019 Stage 3 severe COPD by GOLD classification ([facility]) 2018 Tobacco use greater than 30 years [...] 4 mg (more content not included)... Normal [facility] Magnesium SerPl-mCncon 03-22 Magnesium [Mass/Vol] 1.9 mg/dL Normal 1.6-2.6 [facility] Comment on above: Order Comment: Speci men Type: BLOOD SPECIMEN Ordering Facility: [facility] Address: [address] [place] [address] Performed By: #### 2 4323-8, 3040-3, 80471-4, 2777-1, 2571-8 #### [facility] CLIA [id number] [address] THERAPY NTon 03-22-2025 THERAPY NT HNO ID: [id number] Author: KERMIT MAGALLON, PT Service: Physical Therapy Author Type: Physical Therapist Type: Therapy (PT/OT/Speech/Resp) Filed: 03/22/2025 10:55 Note Text: Physical Therapy Evaluation Summary SERVICE DATE: 03/22/2025 SERVICE TIME: 0949 to 1017 ROOM: [place] [address] PT 6 Clicks Score: 22 DISCHARGE RECOMMENDATIONS [...] pancreatitis. (+) Norovirus. Extubated 03/17. Txfer to [facility] 03/18. Relevant Past Medical History: chronic pancreatitis, alcoholic hepatitis, chronic hypoxic respiratory failure (5L baseline) HOME LIVING Patient Lives With: Family, Other: See Comment Comments: Will be discharging to sister's home. Home environment provide is sister's home. Assistance Available: 24-Hour, Other: See Comment Comments: sister, gzvfnum-au-zgi and cousin Entry To Home: Stairs, With [...] Weakness (generalized) TREATMENT INTERVENTIONS Evaluation, Therapeutic Activity (97064) Timed Code Treatment (minutes): 10 Skilled Treatment [...] March 22, 2025 TIME: 10:55 AM Normal [facility] XR CHEST 1V FRONTALon 2024 XR [...] left pleural effusion and left lobar atelectasis. Simulation Educator: PSCB Transcribe Date/Time: Mar 23 2025 6:52A Dictated by : OZZY LATHAM MD This examination was interpreted and the report reviewed and electronically signed by: OZZY LATHAM MD on Mar 23 2025 6:55AM EST [id number] Normal [facility] Basic metabolic 2000 panelon 03-21-2025 Anion gap [Moles/Vol] 8 mmol/L Normal 5-16 [facility] Comment on above: Order Comment: Speci men Type: BLOOD SPECIMEN Ordering Facility: [facility] Address: [address] [place] [address] Performed By: #### 2 4323-8, 3040-3, 29293-3, 2777-1, 2571-8 #### [facility] CLIA [id number] [address] [facility] [place] [address] [place] Calcium [Mass/Vol] 9.5 mg/dL Normal 8.5-10.5 [facility] Comment on above: Order Comment: Speci men Type: BLOOD SPECIMEN Ordering Facility: [facility] Address: [address] [place], [place] [address] Performed By: #### 2 4323-8, 3040-3, 09374-6, 2776-09, 2571-04 #### [facility] CLIA [id number] [address] [place] [address] [place] Chloride [Moles/Vol] 98 mmol/L Normal 98-107 [facility] Comment on above: Order Comment: Speci men Type: BLOOD SPECIMEN Ordering Facility: [facility] Address: [address] [place] [address] Performed By: #### 2 4323-8, 3040-3, 82659-2, 2776-09, 2571-04 #### [facility] CLIA [id number] [address] [place] [address] [place] CO2 [Moles/Vol] 31 mmol/L Normal 21-32 [facility] Comment on above: Order Comment: Speci men Type: BLOOD SPECIMEN Ordering Facility: [facility] Address: [address] [place] [address] Performed By: #### 2 4323-8, 0-3, 17682-5, 2776-09, 2571-04 #### [facility] CLIA [id number] [address] [place] [address] [place] Creatinine [Mass/Vol] 1.03 mg/dL High 0.51-0.95 [facility] Comment on above: Order Comment: Speci men Type: BLOOD SPECIMEN Ordering Facility: [facility] Address: [address] [place], [place] [address] Result Comment: Gretta ents receiving either N-Acetylcysteine (NAC) or Metamizole prior to venipuncture, may have falsely depressed results. Performed By: #### 2 4323-8, 3040-3, 71947-6, 1, 8 #### [facility] CLIA [id number] [address] [place] [address] [place] Creatinine and Glomerular filtration rate.predicted panel (S/P/Bld) 62 mL/min/1.73m??? Normal >=60 [facility] Comment on above: Order Comment: Reggie fajardo Type: BLOOD SPECIMEN Ordering Facility: [facility] Address: [address] [id number] Result Comment: Pavan mated Glomerular Filtration Rate [...] GFR. Performed By: #### 2 4323-8, 3040-3, 21462-5, 2777-1, 2570-8 #### [facility] CLIA [id number] [address] [place] [address] [place] Glucose [Mass/Vol] 105 mg/dL High 70-100 [facility] Comment on above: Order Comment: Reggie fajardo Type: BLOOD SPECIMEN Ordering Facility: [facility] Address: [address] [id number] Result Comment: The [place] [employer] (ADA) provides guidance for cutoff [...] Standards of Medical Care in Diabetes 2016, [place] [employer]. Diabetes Care. 2016.39(Suppl 1). Results may be falsely elevated after the administration of Sulfapyridine. Results may be falsely depressed after the administration of Sulfasalazine. Performed By: #### 2 4323-8, 3040-3, 89570-3, 2777-1, 2570-8 #### [facility] CLIA [id number] [address] [place], [place] [address] [place] Potassium [Moles/Vol] 4.4 mmol/L Normal 3.5-5.1 [facility] Comment on above: Order Comment: Speci men Type: BLOOD SPECIMEN Ordering Facility: [facility] Address: [address] [place], [place] [address] Performed By: #### 2 4323-8, 3040-3, 50833-5, 277-1, 257-8 #### [facility] CLIA [id number] [address] [place], [place] [address] [place] Sodium [Moles/Vol] 137 mmol/L Normal 136-145 [facility] Comment on above: Order Comment: Speci men Type: BLOOD SPECIMEN Ordering Facility: [facility] Address: [address] [place] [address] Performed By: #### 2 4323-8, 3040-3, 04437-3, 2776-1, 2570-8 #### [facility] CLIA [id number] [address] [place], [place] [address] [place] Urea nitrogen [Mass/Vol] 17 mg/dL Normal 7-26 [facility] Comment on above: Order Comment: Speci men Type: BLOOD SPECIMEN Ordering Facility: [facility] Address: [address] [place], [place] [address] Performed By: #### 2 4323-8, 3040-3, 20285-0, 2776-1, 257-8 #### [facility] CLIA [id number] [address] [place], [place] [address] [place] CBC panel Auto (Bld)on 03-21 Erythrocyte distribution width (RBC) [Ratio] 15.3 % High 11.5-15.0 [facility] Comment on above: Order Comment: Speci men Type: BLOOD SPECIMEN Ordering Facility: [facility] Address: [address] [place] [address] Performed By: #### 2 4323-8, 3040-3, 25617-7, 277-1, 257-8 #### [facility] CLIA [id number] [address] [place] [address] [place] Hematocrit (Bld) [Volume fraction] 33.7 % Low 36.0-46.0 [facility] Comment on above: Order Comment: Speci men Type: BLOOD SPECIMEN Ordering Facility: [facility] Address: [address] [place] [address] Performed By: #### 2 4323-8, 3040-3, 71802-6, 1, 8 #### [facility] CLIA [id number] [address] [place], [place] [address] [place] Hemoglobin (Bld) [Mass/Vol] 10.0 g/dL Low 11.5-15.5 [facility] Comment on above: Order Comment: Speci men Type: BLOOD SPECIMEN Ordering Facility: [facility] Address: [address] [place] [address] Performed By: #### 2 4323-8, 3040-3, 85510-6, 27703-28, 8 #### [facility] CLIA [id number] [address] [place], [place] [address] [place] MCH (RBC) [Entitic mass] 26.0 pg Normal 26.0-34.0 [facility] Comment on above: Order Comment: Speci men Type: BLOOD SPECIMEN Ordering Facility: [facility] Address: [address] [place] [address] Performed By: #### 2 4323-8, 3040-3, 92183-1, 27703-28, 8 #### [facility] CLIA [id number] [address] [place], [place] [address] [place] MCHC (RBC) [Mass/Vol] 29.7 g/dL Low 30.5-36.0 [facility] Comment on above: Order Comment: Speci men Type: BLOOD SPECIMEN Ordering Facility: [facility] Address: [address] [place] [address] Performed By: #### 2 4323-8, 3040-3, 20574-8, 2777-1, 2570-8 #### [facility] CLIA [id number] [address] [place] [address] [place] MCV (RBC) [Entitic vol] 87.8 fL Normal 80.0-100.0 [facility] Comment on above: Order Comment: Speci men Type: BLOOD SPECIMEN Ordering Facility: [facility] Address: [address] [place], [place] [address] Performed By: #### 2 4323-8, 3040-3, 20767-6, 2776-1, 2570-8 #### [facility] CLIA [id number] [address] [place], [place] [address] [place] Nucleated RBC (Bld) [#/Vol] 10*3/uL Normal <0.01 [facility] Comment on above: Order Comment: Speci men Type: BLOOD SPECIMEN Ordering Facility: [facility] Address: [address] [place], [place] [address] Performed By: #### 2 4323-8, 3040-3, 54477-0, 2776-1, 2570-8 #### [facility] CLIA [id number] [address] [place] [address] [place] Platelet mean volume (Bld) [Entitic vol] 9.7 fL Normal 9.0-12.7 [facility] Comment on above: Order Comment: Speci men Type: BLOOD SPECIMEN Ordering Facility: [facility] Address: [address] [place], [place] [address] Performed By: #### 2 4323-8, 0-3, 88908-5, 2776-1, 2570-8 #### [facility] CLIA [id number] [address] [place] [address] [place] Platelets (Bld) [#/Vol] 380 10*3/uL Normal 150-400 [facility] Comment on above: Order Comment: Speci men Type: BLOOD SPECIMEN Ordering Facility: [facility] Address: [address] [place], [place] [address] Performed By: #### 2 4323-8, 3040-3, 10236-2, 2777-1, 2571-8 #### [facility] CLIA [id number] [address] [place], [place] [address] [employer] OF [place] RBC (Bld) [#/Vol] 3.84 10*6/uL Low 3.90-5.20 [facility] Comment on above: Order Comment: Speci men Type: BLOOD SPECIMEN Ordering Facility: [facility] Address: [address] [place] [address] Performed By: #### 2 4323-8, 3040-3, 05572-9, 2777-1, 2571-8 #### [facility] CLIA [id number] [address] [place], [place] [address] [place] [facility] [place] WBC (Bld) [#/Vol] 16.40 10*3/uL High 3.70-11.00 [facility] Comment on above: Order Comment: Speci tana Type: BLOOD SPECIMEN Ordering Facility: [facility] Address: [address] [place] [address] Performed By: #### 2 4323-8, 3040-3, 70962-4, 2777-1, 2571-8 #### [facility] CLIA [id number] [address] [place], [place] [address] [facility] CONSULT PROGon 03-21-2025 CONSULT PROG HNO ID: [id number] Author: EUGENE VIRAMONTES APRN.COMPANY MARKER Service: Pulmonary Disease Author Type: Nurse Practitioner Type: Consult Progress Note Filed: 03/21/2025 14:20 Note Text: [facility] PULMONARY PROGRESS NOTE SERVICE DATE: 03/21/2025 [...] Alcoholic hepatitis (HCC) 05/18/2012 Alcoholic liver disease ([facility]) 11/16/2013 Anemia Anxiety with depression Arthritis Asthma ([facility]) Chronic hypoxemic respiratory failure ([facility]) COPD (chronic obstructive pulmonary disease) ([facility]) 05/25/2012 DDD (degenerative disc disease), cervical 09/03/2018 [...] to infectious organism 2017 Severe protein-calorie malnutrition ([facility]) 01/07/2019 Stage 3 severe COPD by GOLD classification ([facility]) 2018 Tobacco use greater than 30 years [...] injection 5,0 (more content not included)... Normal [facility] Magnesium [facility] 03-21 Magnesium [Mass/Vol] 2.3 mg/dL Normal 1.6-2.6 [facility] Comment on above: Order Comment: Reggie fajardo Type: BLOOD SPECIMEN Ordering Facility: [facility] Address: [address] [place] [address] Performed By: #### 2 4323-8, 3040-3, 99528-4, 2777-1, 257-8 #### [facility] CLIA [id number] [address] [place] [address] STATES [place] [facility] NT-proBNP [facility] 03-21 Natriuretic peptide.B prohormone N-Terminal [Mass/Vol] 1416 pg/mL High <125 [facility] Comment on above: Order Comment: Rgegie fajardo Type: BLOOD SPECIMEN Ordering Facility: [facility] Address: [address] [place] [address] Result Comment: NT-p roBNP results of less than 300 pg/mL likely rules out acute congestive heart failure with 99% predictive value. NOTE: These cutoff points are suggested for ACUTE CHF DIAGNOSIS only Less than 50 years\X09\ Greater than 450 pg/mL 50 - 75 years\X09\\X09\ Greater than 900 pg/mL Greater than 75 years\X09\ Greater than 1800 pg/mL Performed By: #### 2 4323-8, 3040-3, 74930-9, 2777-1, 257-8 #### [facility] CLIA [id number] [address] [place], [place] [address] [place] ALLIED HEALTHon 03-20-2025 ALLIED HEALTH HNO ID: [id number] Author: ?, ?, ? Service: Infection Prevention [...] 20, 2025 TIME: 2:06 PM PAGER/CONTACT #: [phone] Infection Prevention after hours/weekend pager: [phone] Normal [facility] Basic metabolic 2000 panelon 03-20-2025 Anion gap [Moles/Vol] 11 mmol/L Normal 5-16 [facility] Comment on above: Order Comment: Reggie fajardo Type: BLOOD SPECIMEN Ordering Facility: [facility] Address: [address] [place] [address] Performed By: #### S LACTR #### [facility] CLIA [id number] [address] [place] [address] [place] Calcium [Mass/Vol] 9.9 mg/dL Normal 8.5-10.5 [facility] Comment on above: Order Comment: Reggie fajardo Type: BLOOD SPECIMEN Ordering Facility: [facility] Address: [address] [place] [address] Performed By: #### S LACTR #### [facility] CLIA [id number] [address] [place] [address] [place] Chloride [Moles/Vol] 95 mmol/L Low 98-107 [facility] Comment on above: Order Comment: Kettyi men Type: BLOOD SPECIMEN Ordering Facility: [facility] Address: [address] [place] [address] Performed By: #### S LACTR #### [facility] CLIA [id number] [address] [place] [address] [place] CO2 [Moles/Vol] 29 mmol/L Normal 21-32 [facility] Comment on above: Order Comment: Speci men Type: BLOOD SPECIMEN Ordering Facility: [facility] Address: [address] [place] [address] Performed By: #### S LACTR #### [facility] CLIA [id number] [address] [place] [address] [place] Creatinine [Mass/Vol] 0.83 mg/dL Normal 0.51-0.95 [facility] Comment on above: Order Comment: Speci men Type: BLOOD SPECIMEN Ordering Facility: [facility] Address: [address] [place] [address] Result Comment: Gretta ents receiving either N-Acetylcysteine (NAC) or Metamizole prior to venipuncture, may have falsely depressed results. Performed By: #### S LACTR #### [facility] CLIA [id number] [address] [place] [address] OF [facility] Creatinine and Glomerular filtration rate.predicted panel (S/P/Bld) 80 mL/min/1.73m??? Normal >=60 [facility] Comment on above: Order Comment: Reggie fajardo Type: BLOOD SPECIMEN Ordering Facility: [facility] Address: [address] [place] [address] Result Comment: Pavan mated Glomerular Filtration Rate [...] By: #### S LACTR #### [facility] CLIA [id number] [address] [place] [address] [place] Glucose [Mass/Vol] 135 mg/dL High 70-100 [facility] Comment on above: Order Comment: Reggie fajardo Type: BLOOD SPECIMEN Ordering Facility: [facility] Address: [address] [place] [address] Result Comment: The [place] Diabetes [employer] (ADA) provides guidance for cutoff [...] Standards of Medical Care in Diabetes 2016, [place] [employer]. Diabetes Care. 2016.39(Suppl 1). Results may be falsely elevated after the administration of Sulfapyridine. Results may be falsely depressed after the administration of Sulfasalazine. Performed By: #### S LACTR #### [facility] CLIA [id number] [address] [place] [address] [place] Potassium [Moles/Vol] 4.2 mmol/L Normal 3.5-5.1 [facility] Comment on above: Order Comment: Reggie fajardo Type: BLOOD SPECIMEN Ordering Facility: [facility] Address: [address] [place] [address] Performed By: #### S LACTR #### [facility] CLIA [id number] [address] [place] [address] [place] Sodium [Moles/Vol] 135 mmol/L Low 136-145 [facility] Comment on above: Order Comment: Reggie fajardo Type: BLOOD SPECIMEN Ordering Facility: [facility] Address: [address] [place] [address] Performed By: #### S LACTR #### [facility] CLIA [id number] [address] [place] [address] [place] Urea nitrogen [Mass/Vol] 15 mg/dL Normal 7-26 [facility] Comment on above: Order Comment: Speci men Type: BLOOD SPECIMEN Ordering Facility: [facility] Address: [address] [place] [address] Performed By: #### S LACTR #### [facility] CLIA [id number] [address] [place] [address] [place] CBC panel Auto (Bld)on 03-20 Erythrocyte distribution width (RBC) [Ratio] 15.4 % High 11.5-15.0 [facility] Comment on above: Order Comment: Speci men Type: BLOOD SPECIMEN Ordering Facility: [facility] Address: [address] [place] [address] Performed By: #### S LACTR #### [facility] CLIA [id number] [address] [place] [address] [place] Hematocrit (Bld) [Volume fraction] 37.7 % Normal 36.0-46.0 [facility] Comment on above: Order Comment: Speci men Type: BLOOD SPECIMEN Ordering Facility: [facility] Address: [address] [place] [address] Performed By: #### S LACTR #### [facility] CLIA [id number] [address] [place] [address] [place] Hemoglobin (Bld) [Mass/Vol] 11.7 g/dL Normal 11.5-15.5 [facility] Comment on above: Order Comment: Speci men Type: BLOOD SPECIMEN Ordering Facility: [facility] Address: [address] [place] [address] Performed By: #### S LACTR #### [facility] CLIA [id number] [address] [place] [address] [place] MCH (RBC) [Entitic mass] 26.7 pg Normal 26.0-34.0 [facility] Comment on above: Order Comment: Speci men Type: BLOOD SPECIMEN Ordering Facility: [facility] Address: [address] [place] [address] Performed By: #### S LACTR #### [facility] CLIA [id number] [address] [place] [address] [place] MCHC (RBC) [Mass/Vol] 31.0 g/dL Normal 30.5-36.0 [facility] Comment on above: Order Comment: Speci men Type: BLOOD SPECIMEN Ordering Facility: [facility] Address: [address] [place] [address] Performed By: #### S LACTR #### [facility] CLIA [id number] [address] [place] [address] [place] MCV (RBC) [Entitic vol] 86.1 fL Normal 80.0-100.0 [facility] Comment on above: Order Comment: Speci men Type: BLOOD SPECIMEN Ordering Facility: [facility] Address: [address] [place] [address] Performed By: #### S LACTR #### [facility] CLIA [id number] [address] [place] [address] [place] Nucleated RBC (Bld) [#/Vol] 10*3/uL Normal <0.01 [facility] Comment on above: Order Comment: Speci men Type: BLOOD SPECIMEN Ordering Facility: [facility] Address: [address] [place] [address] Performed By: #### S LACTR #### [facility] CLIA [id number] [address] [place] [address] [place] Platelet mean volume (Bld) [Entitic vol] 10.0 fL Normal 9.0-12.7 [facility] Comment on above: Order Comment: Speci men Type: BLOOD SPECIMEN Ordering Facility: [facility] Address: [address] [place] [address] Performed By: #### S LACTR #### [facility] CLIA [id number] [address] [place] [address] [place] Platelets (Bld) [#/Vol] 447 10*3/uL High 150-400 [facility] Comment on above: Order Comment: Speci men Type: BLOOD SPECIMEN Ordering Facility: [facility] Address: [address] [place], [place] [address] Performed By: #### S LACTR #### [facility] CLIA [id number] [address] [place] [address] [place] RBC (Bld) [#/Vol] 4.38 10*6/uL Normal 3.90-5.20 [facility] Comment on above: Order Comment: Speci men Type: BLOOD SPECIMEN Ordering Facility: [facility] Address: [address] [place] [address] Performed By: #### S LACTR #### [facility] CLIA [id number] [address] [place] [address] [place] WBC (Bld) [#/Vol] 18.58 10*3/uL High 3.70-11.00 [facility] Comment on above: Order Comment: Speci men Type: BLOOD SPECIMEN Ordering Facility: [facility] Address: [address] [place] [address] Performed By: #### S LACTR #### [facility] CLIA [id number] [address] [place], [place] [address] [employer] OF [facility] CONSULT PROGon 03-20-2025 CONSULT PROG HNO ID: [id number] Author: ISIS BE RPh Service: Pharmacy Author [...] there are questions. Isis Be RPh Normal [facility] CONSULT PROG HNO ID: [id number] Author: EUGENE VIRAMONTES APRN.CNP Service: Pulmonary Disease Author Type: Nurse Practitioner Type: Consult Progress Note Filed: 03/20/2025 11:28 Note Text: [facility] PULMONARY PROGRESS NOTE SERVICE DATE: 03/20/2025 [...] Stage 3 severe COPD by GOLD classification ([facility]) 2018 Tobacco use greater than 30 years [...] iv con (more content not included)... Normal [facility] ECHOon 03-20-2025 Echocardiography Echocardiography Rep ort: Transthoracic Echo [facility] Date of service: 03/20/2025 9:25:59 AM [...] * * Final * * * CC [facility] : [id number] Normal [facility] Magnesium SerPl-mCncon 03-20 Magnesium [Mass/Vol] 2.1 mg/dL Normal 1.6-2.6 [facility] Comment on above: Order Comment: Speci men Type: BLOOD SPECIMEN Ordering Facility: [facility] Address: [address] [place] [address] Performed By: #### S LACTR #### [facility] CLIA [id number] [address] [place] [address] [employer] OF [place] ALLIED HEALTHon 03-19-2025 ALLIED HEALTH HNO ID: [id number] Author: AMY FUENTES RT(R) Service: Radiology Author Type: Technologist [...] PATIENT PRESENTS WITH AN IMPLANTABLE OR ATTACHED SALES REPRESENTATIVE TRAINEE: No ALLERGIES: Reviewed and unchanged CONTRAST ALLERGY: [...] CT; Exam(s) Completed: CTA Chest SIGNATURE: Amy Fuentes RT(R) PATIENT NAME: Gracie Banuelos DATE: March 19, 2025 TIME: 10:13 PM Normal [facility] ARTERIAL BLOOD GASESon 03-19 Base excess Calc (Bld) [Moles/Vol] 3 mmol/L High 0-2 [facility] Comment on above: Order Comment: Speci men Type: BLOOD SPECIMEN Ordering Facility: [facility] Address: [address] [place] [address] Performed By: #### S LACTR #### [facility] CLIA [id number] [address] [place] [address] [place] Body temperature 98.6 [degF] Normal [facility] Comment on above: Order Comment: Speci men Type: BLOOD SPECIMEN Ordering Facility: [facility] Address: [address] [place] [address] Performed By: #### S LACTR #### [facility] CLIA [id number] [address] [place] [address] [place] Calcium.ionized (Bld) [Mass/Vol] 1.25 mmol/L Normal 1.08-1.30 [facility] Comment on above: Order Comment: Speci men Type: BLOOD SPECIMEN Ordering Facility: [facility] Address: [address] [place] [address] Performed By: #### S LACTR #### [facility] CLIA [id number] [address] [place] [address] [place] Carboxyhemoglobin (BldA) [Mass fraction] 0.0 % Normal 0.0-2.0 [facility] Comment on above: Order Comment: Speci men Type: BLOOD SPECIMEN Ordering Facility: [facility] Address: [address] [place] [address] Result Comment: Carb oxyhemoglobin Reference Range for Smokers: 2.0-8.0% Performed By: #### S LACTR #### [facility] CLIA [id number] [address] [place] [address] [place] CO2 (Bld) [Partial pressure] 38 mm Hg Normal 36-46 [facility] Comment on above: Order Comment: Speci men Type: BLOOD SPECIMEN Ordering Facility: [facility] Address: [address] [place] [address] Performed By: #### S LACTR #### [facility] CLIA [id number] [address] [place] [address] [place] Glucose [Mass/Vol] 155 mg/dL High 60-105 [facility] Comment on above: Order Comment: Speci men Type: BLOOD SPECIMEN Ordering Facility: [facility] Address: [address] [place] [address] Performed By: #### S LACTR #### [facility] CLIA [id number] [address] [place] [address] [place] HCO3 (Bld) [Moles/Vol] 27 mmol/L High 22-26 [facility] Comment on above: Order Comment: Speci men Type: BLOOD SPECIMEN Ordering Facility: [facility] Address: [address] [place] [address] Performed By: #### S LACTR #### [facility] CLIA [id number] [address] [place] [address] [place] Hemoglobin (Bld) [Mass/Vol] 12.5 g/dL Normal 11.5-15.5 [facility] Comment on above: Order Comment: Speci men Type: BLOOD SPECIMEN Ordering Facility: [facility] Address: [address] [place] [address] Performed By: #### S LACTR #### [facility] CLIA [id number] [address] [place] [address] [place] Lactate [Moles/Vol] 0.8 mmol/L Normal 0.5-2.2 [facility] Comment on above: Order Comment: Speci men Type: BLOOD SPECIMEN Ordering Facility: [facility] Address: [address] [place] [address] Performed By: #### S LACTR #### [facility] [place] [id number] [address] [place] [address] [place] 12 Liters/min Normal [facility] Comment on above: Order Comment: Speci men Type: BLOOD SPECIMEN Ordering Facility: [facility] Address: [address] [place] [address] Performed By: #### S LACTR #### [facility] CLIA [id number] [address] [place] [address] [place] Methemoglobin (Bld) [Mass fraction] 0.2 % Normal 0.0-1.5 [facility] Comment on above: Order Comment: Speci men Type: BLOOD SPECIMEN Ordering Facility: [facility] Address: [address] [place] [address] Performed By: #### S LACTR #### [facility] CLIA [id number] [address] [place] [address] [place] O2 THERAPY [place] Humid = Nasal Cannula-Humidified (7-15 LPM) Normal [facility] Comment on above: Order Comment: Speci men Type: BLOOD SPECIMEN Ordering Facility: [facility] Address: [address] [place] [address] Performed By: #### S LACTR #### [facility] CLIA [id number] [address] [place] [address] [place] Oxygen (Bld) [Partial pressure] 68 mm Hg Low 85-95 [facility] Comment on above: Order Comment: Speci men Type: BLOOD SPECIMEN Ordering Facility: [facility] Address: [address] [place] [address] Performed By: #### S LACTR #### [facility] CLIA [id number] [address] [place] [address] [place] [place] Oxyhemoglobin (BldA) [Mass fraction] 93 % Low 95-98 [facility] Comment on above: Order Comment: Speci men Type: BLOOD SPECIMEN Ordering Facility: [facility] Address: [address] [place] [address] Performed By: #### S LACTR #### [facility] CLIA [id number] [address] [place] [address] [place] pH (Bld) 7.47 [pH] High 7.35-7.45 [facility] Comment on above: Order Comment: Speci men Type: BLOOD SPECIMEN Ordering Facility: [facility] Address: [address] [place] [address] Performed By: #### S LACTR #### [facility] CLIA [id number] [address] [place] [address] [place] Potassium [Moles/Vol] 4.4 mmol/L Normal 2.5-6.0 [facility] Comment on above: Order Comment: Speci men Type: BLOOD SPECIMEN Ordering Facility: [facility] Address: [address] [place] [address] Performed By: #### S LACTR #### [facility] CLIA [id number] [address] [place] [address] [place] Sodium [Moles/Vol] 135 mmol/L Low 136-144 [facility] Comment on above: Order Comment: Speci men Type: BLOOD SPECIMEN Ordering Facility: [facility] Address: [address] [place] [address] Performed By: #### S LACTR #### [facility] CLIA [id number] [address] [place] [address] [place] Basic metabolic 2000 panelon 03-19-2025 Anion gap [Moles/Vol] 10 mmol/L Normal 5-16 [facility] Comment on above: Order Comment: Speci men Type: BLOOD SPECIMEN Ordering Facility: [facility] Address: [address] [place] [address] Performed By: #### 3 4528-0, 05545-8 #### [facility] CLIA [id number] [address] [place] [address] [place] Calcium [Mass/Vol] 9.4 mg/dL Normal 8.5-10.5 [facility] Comment on above: Order Comment: Speci men Type: BLOOD SPECIMEN Ordering Facility: [facility] Address: [address] [place] [address] Performed By: #### 3 4528-0, 71378-0 #### [facility] CLIA [id number] [address] [place] [address] [place] Chloride [Moles/Vol] 100 mmol/L Normal 98-107 [facility] Comment on above: Order Comment: Speci men Type: BLOOD SPECIMEN Ordering Facility: [facility] Address: [address] [place] [address] Performed By: #### 3 4528-0, 74594-2 #### [facility] CLIA [id number] [address] [place] [address] [place] CO2 [Moles/Vol] 28 mmol/L Normal 21-32 [facility] Comment on above: Order Comment: Speci men Type: BLOOD SPECIMEN Ordering Facility: [facility] Address: [address] [place] [address] Performed By: #### 3 4528-0, 02192-2 #### [facility] CLIA [id number] [address] [place] [address] [place] Creatinine [Mass/Vol] 0.57 mg/dL Normal 0.51-0.95 [facility] Comment on above: Order Comment: Speci men Type: BLOOD SPECIMEN Ordering Facility: [facility] Address: [address] [place] [address] Result Comment: Gretta ents receiving either N-Acetylcysteine (NAC) or Metamizole prior to venipuncture, may have falsely depressed results. Performed By: #### 3 4528-0, 07551-7 #### [facility] CLIA [id number] [address] [place] [address] [place] Creatinine and Glomerular filtration rate.predicted panel (S/P/Bld) 104 mL/min/1.73m??? Normal >=60 [facility] Comment on above: Order Comment: Reggie fajardo Type: BLOOD SPECIMEN Ordering Facility: [facility] Address: [address] [place] [address] Result Comment: Pavan mated Glomerular Filtration Rate [...] actual GFR. Performed By: #### 3 4528-0, 65153-8 #### [facility] CLIA [id number] [address] [place] [address] [place] Glucose [Mass/Vol] 102 mg/dL High 70-100 [facility] Comment on above: Order Comment: Reggie fajardo Type: BLOOD SPECIMEN Ordering Facility: [facility] Address: [address] [place] [address] Result Comment: The [place] Diabetes [employer] (ADA) provides guidance for cutoff [...] Standards of Medical Care in Diabetes 2016, [place] [employer]. Diabetes Care. 2016.39(Suppl 1). Results may be falsely elevated after the administration of Sulfapyridine. Results may be falsely depressed after the administration of Sulfasalazine. Performed By: #### 3 4528-0, 75023-0 #### [facility] CLIA [id number] [address] [place] [address] [place] Potassium [Moles/Vol] 4.4 mmol/L Normal 3.5-5.1 [facility] Comment on above: Order Comment: Reggie fajardo Type: BLOOD SPECIMEN Ordering Facility: [facility] Address: [address] [place] [address] Performed By: #### 3 4528-0, 89527-7 #### [facility] CLIA [id number] [address] [place] [address] [place] Sodium [Moles/Vol] 138 mmol/L Normal 136-145 [facility] Comment on above: Order Comment: Reggie fajardo Type: BLOOD SPECIMEN Ordering Facility: [facility] Address: [address] [place] [address] Performed By: #### 3 4528-0, 84213-2 #### [facility] CLIA [id number] [address] [place] [address] [place] Urea nitrogen [Mass/Vol] 10 mg/dL Normal 7-26 [facility] Comment on above: Order Comment: Reggie fajardo Type: BLOOD SPECIMEN Ordering Facility: [facility] Address: [address] [place] [address] Performed By: #### 3 4528-0, 68009-4 #### [facility] CLIA [id number] [address] [place] [address] [place] CBC panel Auto (Bld)on 03-19 Erythrocyte distribution width (RBC) [Ratio] 15.1 % High 11.5-15.0 [facility] Comment on above: Order Comment: Reggie fajardo Type: BLOOD SPECIMEN Ordering Facility: [facility] Address: [address] [place] [address] Performed By: #### 3 4528-0, 68169-1 #### [facility] CLIA [id number] [address] [place] [address] [place] [facility] [place] Hematocrit (Bld) [Volume fraction] 33.0 % Low 36.0-46.0 [facility] Comment on above: Order Comment: Speci men Type: BLOOD SPECIMEN Ordering Facility: [facility] Address: [address] [place] [address] Performed By: #### 3 4528-0, 32323-4 #### [facility] CLIA [id number] [address] [place] [address] [place] Hemoglobin (Bld) [Mass/Vol] 10.1 g/dL Low 11.5-15.5 [facility] Comment on above: Order Comment: Speci men Type: BLOOD SPECIMEN Ordering Facility: [facility] Address: [address] [place] [address] Performed By: #### 3 4528-0, 52133-8 #### [facility] CLIA [id number] [address] [place] [address] [place] MCH (RBC) [Entitic mass] 26.5 pg Normal 26.0-34.0 [facility] Comment on above: Order Comment: Speci men Type: BLOOD SPECIMEN Ordering Facility: [facility] Address: [address] [place] [address] Performed By: #### 3 4528-0, 83170-6 #### [facility] CLIA [id number] [address] [place] [address] [place] MCHC (RBC) [Mass/Vol] 30.6 g/dL Normal 30.5-36.0 [facility] Comment on above: Order Comment: Speci men Type: BLOOD SPECIMEN Ordering Facility: [facility] Address: [address] [place] [address] Performed By: #### 3 4528-0, 61637-2 #### [facility] CLIA [id number] [address] [place] [address] [place] MCV (RBC) [Entitic vol] 86.6 fL Normal 80.0-100.0 [facility] Comment on above: Order Comment: Speci men Type: BLOOD SPECIMEN Ordering Facility: [facility] Address: [address] [place] [address] Performed By: #### 3 4528-0, 88383-8 #### [facility] CLIA [id number] [address] [place] [address] [place] Nucleated RBC (Bld) [#/Vol] 10*3/uL Normal <0.01 [facility] Comment on above: Order Comment: Speci men Type: BLOOD SPECIMEN Ordering Facility: [facility] Address: [address] [place] [address] Performed By: #### 3 4528-0, 53092-5 #### [facility] CLIA [id number] [address] [place] [address] [place] Platelet mean volume (Bld) [Entitic vol] 9.9 fL Normal 9.0-12.7 [facility] Comment on above: Order Comment: Speci men Type: BLOOD SPECIMEN Ordering Facility: [facility] Address: [address] [place] [address] Performed By: #### 3 4528-0, 91956-7 #### [facility] CLIA [id number] [address] [place] [address] [place] Platelets (Bld) [#/Vol] 397 10*3/uL Normal 150-400 [facility] Comment on above: Order Comment: Speci men Type: BLOOD SPECIMEN Ordering Facility: [facility] Address: [address] [place] [address] Performed By: #### 3 4528-0, 26533-3 #### [facility] CLIA [id number] [address] [place] [address] [place] RBC (Bld) [#/Vol] 3.81 10*6/uL Low 3.90-5.20 [facility] Comment on above: Order Comment: Speci men Type: BLOOD SPECIMEN Ordering Facility: [facility] Address: [address] [place] [address] Performed By: #### 3 4528-0, 78721-2 #### [facility] CLIA [id number] [address] [place], [place] [address] [place] WBC (Bld) [#/Vol] 14.59 10*3/uL High 3.70-11.00 [facility] Comment on above: Order Comment: Speci men Type: BLOOD SPECIMEN Ordering Facility: [facility] Address: [address] [place] [address] Performed By: #### 3 4528-0, 86773-8 #### [facility] CLIA [id number] [address] [place], [place] [id number] [facility] CONSULT PROGon 03-19-2025 CONSULT PROG HNO ID: [id number] Author: BEENA MORTON RPh Service: Pharmacy Author [...] No results found for: FELTON MORTON, PHARMACIST, [facility] CTA CHEST (NONGATED) W IVCON on 03-19-2025 CTA CHEST (NONGATED) W IVCON * * *Final Report* * * DATE OF EXAM: Mar 19 2025 10:16PM [facility] 0123 - CTA CHEST (NONGATED) W IVCON [...] previous exam. 4. Moderate to advanced emphysema. Simulation Educator: BABATUNDE Transcribe Date/Time: Mar 19 2025 11:10P Dictated by : DEBORAH PARK MD This examination was interpreted and the report reviewed and electronically signed by: DEBORAH PARK MD on Mar 19 2025 11:29PM EST [id number] Normal [facility] ECG COMPLETEon 03-19-2025 ECG COMPLETE Ventricular Rate : 1 26 BPM Atrial Rate : 126 BPM P-R Interval : 174 ms QRS Duration : 78 ms Q-T Interval : 316 ms QTC Calculation(Bazett) : 457 ms Calculated P [place] : 77 degrees Calculated R [place] : 67 degrees Calculated T [place] : 63 degrees Sinus tachycardia Minimal voltage criteria for LVH, may be normal variant ( [place] product ) Septal infarct , age undetermined Abnormal ECG No previous ECGs available Confirmed by TASNEEM BALDWIN MD ([id number]) on 04/19/2025 4:38:09 PM NAME : GRACIE BANUELOS PID : [id number] : 1965 Gender : Female Race : ORD : [id number] Procedure Date : Mar 19 2025 15:33:31 Edit Date : Apr 19 2025 16:38:12 Diagnosis: Sinus tachycardia Minimal voltage criteria for LVH, may be normal variant ( [place] product ) Septal infarct , age undetermined Abnormal ECG No previous ECGs available Confirmed by TASNEEM BALDWIN MD ([id number]) on 04/19/2025 4:38:09 PM Test Reason : HCS Location : 8 : [facility] [place] Overread By : TASNEEM BALDWIN MD Edited By : TASNEEM BALDWIN MD Referred By : MACARIO FELIZ Acquired by : 7, Normal [facility] HIGH SENSITIVITY TROPONIN Io n 03-19-2025 Tropinin I.cardiac panel High sensitivity method 7.4 pg/mL Normal 0.0-34.0 [facility] Comment on above: Order Comment: Speci men Type: BLOOD SPECIMEN Ordering Facility: [facility] Address: [address] [place] [address] Performed By: #### 3 4528-0, 73585-3 #### [facility] CLIA [id number] [address] [place] [address] MEDICAL EMERon 03-19-2025 MEDICAL FREYA HNO ID: [id number] Author: CANDIE HORTA APRN.CNP Service: Critical Care [...] heart rate improved. She will remain on 7 main. Attending physicianwas at bedside and was aware. CCT: 17 min Normal [facility] Magnesium SerPl-mCncon 03-19 Magnesium [Mass/Vol] 1.8 mg/dL Normal 1.6-2.6 [facility] Comment on above: Order Comment: Reggie fajardo Type: BLOOD SPECIMEN Ordering Facility: [facility] Address: [address] [place] [address] Performed By: #### 3 4528-0, 72116-7 #### [facility] CLIA [id number] [address] [place] [address] [place] [facility] Natriuretic peptide.B prohormone N-Terminal [Mass/Vol] 3517 pg/mL High <125 [facility] Comment on above: Order Comment: Reggie fajardo Type: BLOOD SPECIMEN Ordering Facility: [facility] Address: [address] [place] [address] Result Comment: NT-p roBNP results of less than 300 pg/mL likely rules out acute congestive heart failure with 99% predictive value. NOTE: These cutoff points are suggested for ACUTE CHF DIAGNOSIS only Less than 50 years\X09\ Greater than 450 pg/mL 50 - 75 years\X09\\X09\ Greater than 900 pg/mL Greater than 75 years\X09\ Greater than 1800 pg/mL Performed By: #### 3 4528-0, 32843-6 #### [facility] CLIA [id number] [address] [place] [address] [place] Procalcitonin SerPl-mCncon 0 03-19-2025 Procalcitonin [Mass/Vol] 1.51 ng/mL High 0.00-0.50 [facility] Comment on above: Order Comment: Reggie fajardo Type: BLOOD SPECIMEN Ordering Facility: [facility] Address: [address] [place] [address] Result Comment: PCT Concentration Interpretation PCT <=0.1 [...] septic shock. Performed By: #### 3 4528-0, 16793-8 #### [facility] CLIA [id number] [address] [place] [address] [place] STAPHYLOCOCCUS AUREUS AND MR SA SCREEN, PCR, NASALon 03-19-2025 S. aureus and MRSA panel KANDY+probe (Nose) Methicillin-SUSCEPTIBLE Staphylococcus aureus Detected Abnormal Not Detected [facility] Comment on above: Order Comment: Speci men Type: BLOOD SPECIMEN Ordering Facility: [facility] Address: [address] [place] [address] Performed By: #### S LACTR #### [facility] CLIA [id number] [address] [place], [place] [address] [place] XR CHEST 1V [...] residual basilar and retrocardiac opacity. Dictated by Line Crew Supervisor: Daniel Castro DO I, Jose Guadalupe Morocho MD, have supervised the procedure and/or image review, and agree with the above interpretation and report. Simulation Educator: PSCB Transcribe Date/Time: Mar 19 2025 3:35P Dictated by : DANIEL CASTRO DO This examination was interpreted and the report reviewed and electronically signed by: JOSE GUADALUPE MOROCHO MD on Mar 19 2025 3:41PM EST [id number] Normal [facility] Basic metabolic 2000 panelon 03-18-2025 Anion gap [Moles/Vol] 10 mmol/L Normal 5-16 [facility] Comment on above: Order Comment: Speci men Type: BLOOD SPECIMENOrdering Facility: [facility] Address: [address] [place] [address] Performed By: #### 2 4321-2, 79404-7, 2777-1, 6-4, 28721-8 ####[facility] [id number] [place] [id number] [place] Calcium [Mass/Vol] 9.1 mg/dL Normal 8.5-10.5 [facility] Comment on above: Order Comment: Speci men Type: BLOOD SPECIMENOrdering Facility: [facility] Address: [address] [place] [address] Performed By: #### 2 4321-2, 40189-2, 277-1, 6-4, 00409-3 ####[facility] [id number] [place] [address] [place] Chloride [Moles/Vol] 101 mmol/L Normal 98-107 [facility] Comment on above: Order Comment: Speci men Type: BLOOD SPECIMENOrdering Facility: [facility] Address: [address] [place], [place] [address] Performed By: #### 2 4321-2, 81584-0, 277-1, 6-4, 26852-7 ####[facility] [id number] [place] [address] [place] CO2 [Moles/Vol] 31 mmol/L Normal 21-32 [facility] Comment on above: Order Comment: Speci men Type: BLOOD SPECIMENOrdering Facility: [facility] Address: [address] [place] [address] Performed By: #### 2 4321-2, 72650-0, 2777-1, 6-4, 76541-6 ####[facility] [id number] [place] [address] [place] Creatinine [Mass/Vol] 0.52 mg/dL Normal 0.51-0.95 [facility] Comment on above: Order Comment: Reggie fajardo Type: BLOOD SPECIMENOrdering Facility: [facility] Address: [address] [place] [address] Result Comment: Gretta ents receiving either N-Acetylcysteine (NAC) or Metamizole prior to venipuncture, may have falsely depressed results. Performed By: #### 2 4321-2, 79055-3, 2776-, 2275-4, 53817-3 ####[facility] [id number] [place] [address] [place] Creatinine and Glomerular filtration rate.predicted panel (S/P/Bld) 106 mL/min/1.73m??? Normal >=60 [facility] Comment on above: Order Comment: Reggie fajardo Type: BLOOD SPECIMENOrdering Facility: [facility] Address: [address] [place] [address] Result Comment: Pavan mated Glomerular Filtration Rate [...] actual GFR. Performed By: #### 2 4321-2, 49874-7, 2777-1, 6-4, 82878-7 ####[facility] [id number] [place] [address] [place] Glucose [Mass/Vol] 103 mg/dL High 70-100 [facility] Comment on above: Order Comment: Reggie fajardo Type: BLOOD SPECIMENOrdering Facility: [facility] Address: [address] [place], [place] [address] Result Comment: The [place] Diabetes Association (ADA) provides guidance for cutoff [...] Standards of Medical Care in Diabetes 2016, [place] [employer]. Diabetes Care. 2016.39(Suppl 1). Results may be falsely elevated after the administration of Sulfapyridine. Results may be falsely depressed after the administration of Sulfasalazine. Performed By: #### 2 4321-2, 90934-6, 2777-1, 6-4, 60437-9 ####[facility] [id number] [place] [address] [place] Potassium [Moles/Vol] 3.5 mmol/L Normal 3.5-5.1 [facility] Comment on above: Order Comment: Reggie fajardo Type: BLOOD SPECIMENOrdering Facility: [facility] Address: [address] [place], [place] [address] Performed By: #### 2 4321-2, 62704-3, 2777-1, 6-4, 55893-6 ####[facility] [id number] [place] [address] [place] Sodium [Moles/Vol] 142 mmol/L Normal 136-145 [facility] Comment on above: Order Comment: Reggie fajardo Type: BLOOD SPECIMENOrdering Facility: [facility] Address: [address] [place], [place] [address] Performed By: #### 2 4321-2, 34644-8, 2777-1, 6-4, 25933-8 ####[facility]IA [id number] [place] [address] [place] Urea nitrogen [Mass/Vol] 10 mg/dL Normal 04-22 [facility] Comment on above: Order Comment: Speci men Type: BLOOD SPECIMENOrdering Facility: [facility] Address: [address] [place] [address] Performed By: #### 2 4321-2, 99758-5, 2777-1, 2276-4, 91706-6 ####[facility]IA [id number] [place] [address] [place] C diff Tox gens Stl Ql KANDY+p robeon 03-18-2025 C. difficile toxin genes KANDY+probe Ql (Stl) Negative Normal Negative for C. difficile toxin by PCR [facility] Comment on above: Order Comment: Speci men Type: BLOOD SPECIMEN Ordering Facility: [facility] Address: [address] [place] [address] Performed By: #### 3 4528-0, 97454-4 #### [facility] CLIA [id number] [facility] [place] [address] [place] CBC panel Auto (Bld)on 03-18 Erythrocyte distribution width (RBC) [Ratio] 15.1 % High 11.5-15.0 [facility] Comment on above: Order Comment: Speci men Type: BLOOD SPECIMENOrdering Facility: [facility] Address: [address] [place] [address] Performed By: #### 5 8410-2 ####[facility]IA [id number] [address] [place] Hematocrit (Bld) [Volume fraction] 29.5 % Low 36.0-46.0 [facility] Comment on above: Order Comment: Speci men Type: BLOOD SPECIMENOrdering Facility: [facility] Address: [address] [place] [address] Performed By: #### 5 8410-2 ####[facility]ORY[facility]IA [id number] [address] [place] Hemoglobin (Bld) [Mass/Vol] 9.2 g/dL Low 11.5-15.5 [facility] Comment on above: Order Comment: Speci men Type: BLOOD SPECIMENOrdering Facility: [facility] Address: [address] [place] [address] Performed By: #### 5 8410-2 ####[facility]ORYCLIA [id number] [address] MCH (RBC) [Entitic mass] 26.7 pg Normal 26.0-34.0 [facility] Comment on above: Order Comment: Speci men Type: BLOOD SPECIMENOrdering Facility: [facility] Address: [address] [place] [address] Performed By: #### 5 8410-2 ####[facility]ORYCLIA [id number] [address] [place] MCHC (RBC) [Mass/Vol] 31.2 g/dL Normal 30.5-36.0 [facility] Comment on above: Order Comment: Speci men Type: BLOOD SPECIMENOrdering Facility: [facility] Address: [address] [place] [address] Performed By: #### 5 8410-2 ####[facility]ORY[facility]IA [id number] [address] [place] MCV (RBC) [Entitic vol] 85.5 fL Normal 80.0-100.0 [facility] Comment on above: Order Comment: Speci men Type: BLOOD SPECIMENOrdering Facility: [facility] Address: [address] [place] [address] Performed By: #### 5 8410-2 ####[facility]ORYCLIA [id number] [address] Nucleated RBC (Bld) [#/Vol] 10*3/uL Normal <0.01 [facility] Comment on above: Order Comment: Speci men Type: BLOOD SPECIMENOrdering Facility: [facility] Address: [address] [place] [address] Performed By: #### 5 8410-2 ####[facility]ORYCLIA [id number] [place] [address] [place] Platelet mean volume (Bld) [Entitic vol] 9.8 fL Normal 9.0-12.7 [facility] Comment on above: Order Comment: Speci men Type: BLOOD SPECIMENOrdering Facility: [facility] Address: [address] [place] [address] Performed By: #### 5 8410-2 ####[facility]ORYCLIA [id number] [place] [address] [place] Platelets (Bld) [#/Vol] 332 10*3/uL Normal 150-400 [facility] Comment on above: Order Comment: Speci men Type: BLOOD SPECIMENOrdering Facility: [facility] Address: [address] [place] [address] Performed By: #### 5 8410-2 ####[facility]ORYCLIA [id number] [place] [address] [place] RBC (Bld) [#/Vol] 3.45 10*6/uL Low 3.90-5.20 [facility] Comment on above: Order Comment: Speci men Type: BLOOD SPECIMENOrdering Facility: [facility] Address: [address] [place] [address] Performed By: #### 5 8410-2 ####[facility] LABORATORYCLIA [id number] [place] [id number] [place] WBC (Bld) [#/Vol] 17.37 10*3/uL High 3.70-11.00 [facility] Comment on above: Order Comment: Speci men Type: BLOOD SPECIMENOrdering Facility: [facility] Address: [address] [place] [address] Performed By: #### 5 8410-2 ####[facility] LABORATORYCLIA [id number] [place] [address] [place] Calcium.ionized [Moles/Vol]o n 03-18-2025 Calcium.ionized (Bld) [Mass/Vol] 1.20 mmol/L Normal 1.08-1.30 [facility] Comment on above: Order Comment: Speci men Type: BLOOD SPECIMENOrdering Facility: [facility] Address: [address] [place] [address] Performed By: #### 1 995-0 ####[facility] LABORATORYCLIA [id number] [place] [address] [place] Calcium.ionized adjusted to pH 7.4 (Bld) [Moles/Vol] 1.22 mmol/L Normal 1.08-1.30 [facility] Comment on above: Order Comment: Speci tana Type: BLOOD SPECIMENOrdering Facility: [facility] Address: [address] [place] [address] Performed By: #### 1 995-0 ####[facility] LABORATORYCLIA [id number] [place] [address] [place] Ferritin SerPl-mCncon 2024 Ferritin [Mass/Vol] 203.9 ng/mL Normal 8.0-307.0 [facility] Comment on above: Order Comment: Speci tana Type: BLOOD SPECIMEN [facility] Address: [address] [place] [address] Performed By: #### 3 4528-0, 12752-8 #### [facility] CLIA [id number] [address] [place] [address] [place] Gastrointestinal pathogens p tuan KANDY+probe (Stl)on 03-18-2025 ADENOVIRUS F 40/41 DNA Not detected Normal Not Detecte d [facility] Comment on above: Order Comment: Reggie fajardo Type: BLOOD SPECIMEN [facility] Address: [address] [place] [address] Performed By: #### 3 4528-0, 81920-0 #### [facility] CLIA [id number] [address] [place] [address] [place] ASTROVIRUS RNA Not detected Normal Not Detected [facility] Comment on above: Order Comment: Speci men Type: BLOOD SPECIMEN [facility] Address: [address] [place] [address] Performed By: #### 3 4528-0, 27836-4 #### [facility] CLIA [id number] [address] [place] [address] OF [place] C. cayetanensis DNA KANDY+probe Ql (Unsp spec) Not detected Normal Not Detected [facility] Comment on above: Order Comment: Speci men Type: BLOOD SPECIMEN [facility] Address: [address] [place] [address] Performed By: #### 3 4528-0, 82797-7 #### [facility] CLIA [id number] [address] [place] [address] [place] Campylobacter sp DNA.diarrheagenic KANDY+probe Ql (Stl) Not detected Normal Not Detected [facility] Comment on above: Order Comment: Speci men Type: BLOOD SPECIMEN [facility] Address: [address] [place] [address] Performed By: #### 3 4528-0, 82177-4 #### [facility] CLIA [id number] [address] [place] [address] [place] Cryptosporidium sp DNA KANDY+probe Ql (Unsp spec) Not detected Normal Not Detected [facility] Comment on above: Order Comment: Speci men Type: BLOOD SPECIMEN [facility] Address: [address] [place] [address] Performed By: #### 3 4528-0, 82386-4 #### [facility] CLIA [id number] [address] [place] [address] [place] E. coli O157:H7 DNA KANDY+probe Ql (Unsp spec) Not applicable Normal Not detected [facility] Comment on above: Order Comment: Speci men Type: BLOOD SPECIMEN [facility] Address: [address] [place] [address] Performed By: #### 3 4528-0, 41870-7 #### [facility] CLIA [id number] [address] [place] [address] [place] E. coli stx1+stx2 genes KANDY+probe Ql (Stl) Not detected Normal Not Detected [facility] Comment on above: Order Comment: Speci men Type: BLOOD SPECIMEN [facility] Address: [address] [place] [address] Performed By: #### 3 4528-0, 11042-7 #### [facility] CLIA [id number] [address] [place] [address] [place] E. histolytica DNA KANDY+probe Ql (Unsp spec) Not detected Normal Not Detected [facility] Comment on above: Order Comment: Speci men Type: BLOOD SPECIMEN [facility] Address: [address] [place] [address] Performed By: #### 3 4528-0, 26484-8 #### [facility] CLIA [id number] [address] [place] [address] OF [place] ENTEROAGGREGATIVE E. COLI (EAEC) DNA Not detected Normal Not Detected [facility] Comment on above: Order Comment: Speci men Type: BLOOD SPECIMEN [facility] Address: [address] [place] [address] Performed By: #### 3 4528-0, 36862-2 #### [facility] CLIA [id number] [address] [place] [address] [place] [facility] OF [place] ENTEROPATHOGENIC E. COLI (EPEC) DNA Not detected Normal Not detected [facility] Comment on above: Order Comment: Speci men Type: BLOOD SPECIMEN [facility] Address: [address] [place] [address] Performed By: #### 3 4528-0, 29103-0 #### [facility] CLIA [id number] [address] [place] [address] [place] ENTEROTOXIGENIC E. COLI (ETEC) DNA Not detected Normal Not Detected [facility] Comment on above: Order Comment: Speci men Type: BLOOD SPECIMEN [facility] Address: [address] [place] [address] Performed By: #### 3 4528-0, 03322-9 #### [facility] CLIA [id number] [address] [place] [address] [place] G. lamblia DNA KANDY+probe Ql (Unsp spec) Not detected Normal Not Detected [facility] Comment on above: Order Comment: Speci men Type: BLOOD SPECIMEN [facility] Address: [address] [place] [address] Performed By: #### 3 4528-0, 98127-5 #### [facility] CLIA [id number] [address] [place] [place] [address] NOROVIRUS GI/GII RNA Detected Abnormal Not Detected [facility] Comment on above: Order Comment: Speci men Type: BLOOD SPECIMEN [facility] Address: [address] [place] [address] Result Comment: The [employer] Filmarray Gastrointestinal Panel has known specificity limitations for norovirus detection. False positives are more likely when prevalence is low (ie. summer). Standalone norovirus PCR (SQNORPCR) is available if confirmation is desired. Performed By: #### 3 4528-0, 69992-2 #### [facility] CLIA [id number] [address] [place] [address] [place] PLESIOMONAS SHIGELLOIDES DNA Not detected Normal Not Detected [facility] Comment on above: Order Comment: Speci men Type: BLOOD SPECIMEN [facility] Address: [address] [place] [address] Performed By: #### 3 4528-0, 42019-2 #### [facility] CLIA [id number] [address] [place] [address] [place] ROTAVIRUS A RNA Not detected Normal Not Detected [facility] Comment on above: Order Comment: Speci men Type: BLOOD SPECIMEN [facility] Address: [address] [place] [address] Performed By: #### 3 4528-0, 48526-0 #### [facility] CLIA [id number] [address] [place] [address] [place] [facility] OF [place] Salmonella sp DNA KANDY+probe Ql (Unsp spec) Not detected Normal Not Detected [facility] Comment on above: Order Comment: Speci men Type: BLOOD SPECIMEN [facility] Address: [address] [place] [address] Performed By: #### 3 4528-0, 23414-0 #### [facility] CLIA [id number] [address] [place] [address] [place] SAPOVIRUS (GENOGROUPS I, II, IV, V) RNA Not detected Normal Not Detected [facility] Comment on above: Order Comment: Speci men Type: BLOOD SPECIMEN [facility] Address: [address] [place] [address] Performed By: #### 3 4528-0, 82425-9 #### [facility] CLIA [id number] [address] [place] [address] OF [place] Shigella species+EIEC invasion plasmid antigen H ipaH gene KANDY+probe Ql (Stl) Not detected Normal Not Detected [facility] Comment on above: Order Comment: Speci men Type: BLOOD SPECIMEN [facility] Address: [address] [place] [address] Performed By: #### 3 4528-0, 92708-1 #### [facility] CLIA [id number] [address] [place] [address] [place] V. cholerae DNA KANDY+probe Ql (Unsp spec) Not detected Normal Not Detected [facility] Comment on above: Order Comment: Speci men Type: BLOOD SPECIMEN [facility] Address: [address] [place] [address] Performed By: #### 3 4528-0, 53269-8 #### [facility] CLIA [id number] [address] [place] [address] [place] Vibrio sp DNA KANDY+probe Nom (Unsp spec) Not detected Normal Not Detected [facility] Comment on above: Order Comment: Speci men Type: BLOOD SPECIMEN [facility] Address: [address] [place] [address] Performed By: #### 3 4528-0, 89957-5 #### [facility] CLIA [id number] [address] [place] [address] STATES [place] [facility] Yersinia sp DNA KANDY+probe Nom (Unsp spec) Not detected Normal Not Detected [facility] Comment on above: Order Comment: Speci men Type: BLOOD SPECIMEN [facility] Address: [address] [place] [address] Performed By: #### 3 4528-0, 76565-5 #### [facility] CLIA [id number] [address] [place] [address] [place] Iron and Iron binding capaci ty panelon 03-18-2025 Iron [Mass/Vol] 16 ug/dL Low 50-170 [facility] Comment on above: Order Comment: Speci men Type: BLOOD SPECIMEN [facility] Address: [address] [place] [address] Result Comment: Gretta ents treated with metal-binding drugs (e.g.deferoxamine) may have depressed iron values, as chelated iron may not properly react in the Siemens iron assay. Performed By: #### 3 4528-0, 60390-2 #### [facility] CLIA [id number] [address] [place] [address] [place] Iron binding capacity [Mass/Vol] 203 ug/dL Low 221-481 [facility] Comment on above: Order Comment: Speci men Type: BLOOD SPECIMEN [facility] Address: [address] [place] [address] Performed By: #### 3 4528-0, 28648-9 #### [facility] CLIA [id number] [address] [place] [address] [place] Iron/TIBC [Molar ratio] 7.9 % Low 22.0-44.0 [facility] Comment on above: Order Comment: Reggie fajardo Type: BLOOD SPECIMEN [facility] Address: [address] [place], [place] [address] Performed By: #### 3 4528-0, 21106-5 #### [facility] CLIA [id number] [address] [place], [place] [address] [facility] Magnesium SerPl-ncon 03-18 Magnesium [Mass/Vol] 1.6 mg/dL Normal 1.6-2.6 [facility] Comment on above: Order Comment: Reggie fajardo Type: BLOOD SPECIMEN [facility] Address: [address] [place] [address] Performed By: #### 3 4528-0, 51371-6 #### [facility] CLIA [id number] [address] [place] [place] [address] NURSING PROGon 03-18-2025 NURSING PROG HNO ID: [id number] Author: RINKU STERN RN Service: Nursing Author Type: Registered Nurse Type: Nursing Progress Note Filed: 03/18/2025 10:54 Note Text: Other: Patient Med Rec incomplete on transfer, Nurse Colleen Notified on 7m, patient unsure of medications, asked sister (Domonique) to bring in list from home. Report called, all questions answered. Normal [facility] Phosphate SerPl-ncon 03-18 Phosphate [Mass/Vol] 3.8 mg/dL Normal 2.5-4.9 [facility] Comment on above: Order Comment: Reggie fajardo Type: BLOOD SPECIMEN [facility] Address: [address] [place] [address] Result Comment: DELT A CHECK&XA&Delta Check Reviewed Elevated m-protein (paraprotein) levels in the serum may be exhibited in patients with monoclonal gammopathies, causing falsely elevated inorganic phosphorus results. Performed By: #### 3 4528-0, 16560-9 #### [facility] CLIA [id number] [address] [place], [place] [address] [place] Respiratory Cultureon 2024 RESPC Normal [facility] Comment on above: Performed By: #### M 100.2000, M100.2400 ####[facility] [id number] [place], [address] Basic metabolic 2000 panelon 03-17-2025 Anion gap [Moles/Vol] 4 mmol/L Low 5-16 [facility] Comment on above: Order Comment: Speci men Type: BLOOD SPECIMENOrdering Facility: [facility] Address: [address] [place], [place] [address] Performed By: #### 2 4321-2, , 2776-09 ####[facility] LABORATORYCLIA [id number] [place] [address] [place] Calcium [Mass/Vol] 9.0 mg/dL Normal 8.5-10.5 [facility] Comment on above: Order Comment: Speci men Type: BLOOD SPECIMENOrdering Facility: [facility] Address: [address] [place], [place] [address] Performed By: #### 2 4321-2, , 2776-09 ####[facility] LABORATORYCLIA [id number] [place] [address] [place] Chloride [Moles/Vol] 104 mmol/L Normal 98-107 [facility] Comment on above: Order Comment: Speci men Type: BLOOD SPECIMENOrdering Facility: [facility] Address: [address] [place] [address] Performed By: #### 2 4321-2, , 2776-09 ####[facility]ORATORYCLIA [id number] [place] [address] [place] CO2 [Moles/Vol] 32 mmol/L Normal 21-32 [facility] Comment on above: Order Comment: Speci men Type: BLOOD SPECIMENOrdering Facility: [facility] Address: [address] [place] [address] Performed By: #### 2 4321-2, , 2776-09 ####[facility]ORATORYCLIA [id number] [place] [address] [place] Creatinine [Mass/Vol] 0.65 mg/dL Normal 0.51-0.95 [facility] Comment on above: Order Comment: Reggie fajardo Type: BLOOD SPECIMENOrdering Facility: [facility] Address: [address] [place] [address] Result Comment: Gretta ents receiving either N-Acetylcysteine (NAC) or Metamizole prior to venipuncture, may have falsely depressed results. Performed By: #### 2 4321-2, , 2776-09 ####[facility]ORATORYCLIA [id number] [address] Creatinine and Glomerular filtration rate.predicted panel (S/P/Bld) 100 mL/min/1.73m??? Normal >=60 [facility] Comment on above: Order Comment: Reggie fajardo Type: BLOOD SPECIMENOrdering Facility: [facility] Address: [address] [place] [address] Result Comment: Pavan mated Glomerular Filtration Rate [...] actual GFR. Performed By: #### 2 4321-2, 77093-0, 2776-09 ####[facility]ATORYCLIA [id number] [place] [address] [place] Glucose [Mass/Vol] 179 mg/dL High 70-100 [facility] Comment on above: Order Comment: Reggie fajardo Type: BLOOD SPECIMENOrdering Facility: [facility] Address: [address] [place] [id number] Result Comment: The [place] [employer] (ADA) provides guidance for cutoff [...] Standards of Medical Care in Diabetes 2016, [place] [employer]. Diabetes Care. 2016.39(Suppl 1). Results may be falsely elevated after the administration of Sulfapyridine. Results may be falsely depressed after the administration of Sulfasalazine. Performed By: #### 2 4321-2, , 2776-09 ####[facility]ORATORYCLIA [id number] [place] [address] [place] Potassium [Moles/Vol] 2.4 mmol/L Critically low 3.5-5.1 [facility] Comment on above: Order Comment: Reggie fajardo Type: BLOOD SPECIMENOrdering Facility: [facility] Address: [address] [place] [address] Result Comment: CRIT ICAL Performed By: #### 2 4321-2, , 2776-09 ####[facility]ATORYCLIA [id number] [place] [address] [place] Sodium [Moles/Vol] 140 mmol/L Normal 136-145 [facility] Comment on above: Order Comment: Reggie fajardo Type: BLOOD SPECIMENOrdering Facility: [facility] Address: [address] [place] [address] Performed By: #### 2 4321-2, , 2776-09 ####[facility]ATORYCLIA [id number] [place] [address] [place] Urea nitrogen [Mass/Vol] 11 mg/dL Normal 7-26 [facility] Comment on above: Order Comment: Reggie fajardo Type: BLOOD SPECIMENOrdering Facility: [facility] Address: [address] [place] [id number] Performed By: #### 2 4321-2, , 2776-09 ####[facility]ORATORYCLIA [id number] [address] OF [facility] CBC panel Auto (Bld)on 03-17 Erythrocyte distribution width (RBC) [Ratio] 14.6 % Normal 11.5-15.0 [facility] Comment on above: Order Comment: Speci men Type: BLOOD SPECIMENOrdering Facility: [facility] Address: [address] [place] [address] Performed By: #### 5 8410-2 ####[facility]ATORYCLIA [id number] [address] Hematocrit (Bld) [Volume fraction] 29.9 % Low 36.0-46.0 [facility] Comment on above: Order Comment: Speci men Type: BLOOD SPECIMENOrdering Facility: [facility] Address: [address] [place] [address] Performed By: #### 5 8410-2 ####[facility]ATORYCLIA [id number] [address] Hemoglobin (Bld) [Mass/Vol] 9.3 g/dL Low 11.5-15.5 [facility] Comment on above: Order Comment: Speci men Type: BLOOD SPECIMENOrdering Facility: [facility] Address: [address] [place] [address] Performed By: #### 5 8410-2 ####[facility] LABORATORYCLIA [id number] [address] STATES OF [place] MCH (RBC) [Entitic mass] 26.4 pg Normal 26.0-34.0 [facility] Comment on above: Order Comment: Speci men Type: BLOOD SPECIMENOrdering Facility: [facility] Address: [address] [place] [address] Performed By: #### 5 8410-2 ####[facility]ORATORYCLIA [id number] [address] STATES [facility] MCHC (RBC) [Mass/Vol] 31.1 g/dL Normal 30.5-36.0 [facility] Comment on above: Order Comment: Speci men Type: BLOOD SPECIMENOrdering Facility: [facility] Address: [address] [place] [address] Performed By: #### 5 8410-2 ####[facility] LABORATORYCLIA [id number] [place] [address] [employer] OF [place] MCV (RBC) [Entitic vol] 84.9 fL Normal 80.0-100.0 [facility] Comment on above: Order Comment: Speci men Type: BLOOD SPECIMENOrdering Facility: [facility] Address: [address] [place] [address] Performed By: #### 5 8410-2 ####[facility] LABORATORYCLIA [id number] [address] STATES [place] Nucleated RBC (Bld) [#/Vol] 10*3/uL Normal <0.01 [facility] Comment on above: Order Comment: Speci men Type: BLOOD SPECIMENOrdering Facility: [facility] Address: [address] [place] [address] Performed By: #### 5 8410-2 ####[facility] LABORATORYCLIA [id number] [place] [address] [place] Platelet mean volume (Bld) [Entitic vol] 10.4 fL Normal 9.0-12.7 [facility] Comment on above: Order Comment: Speci men Type: BLOOD SPECIMENOrdering Facility: [facility] Address: [address] [place] [address] Performed By: #### 5 8410-2 ####[facility] LABORATORYCLIA [id number] [place] [address] [place] Platelets (Bld) [#/Vol] 333 10*3/uL Normal 150-400 [facility] Comment on above: Order Comment: Speci men Type: BLOOD SPECIMENOrdering Facility: [facility] Address: [address] [place] [address] Performed By: #### 5 8410-2 ####[facility] LABORATORYCLIA [id number] [place] [address] [place] RBC (Bld) [#/Vol] 3.52 10*6/uL Low 3.90-5.20 [facility] Comment on above: Order Comment: Speci men Type: BLOOD SPECIMENOrdering Facility: [facility] Address: [address] [place] [address] Performed By: #### 5 8410-2 ####[facility] LABORATORYCLIA [id number] [place] [address] [place] WBC (Bld) [#/Vol] 19.89 10*3/uL High 3.70-11.00 [facility] Comment on above: Order Comment: Speci men Type: BLOOD SPECIMENOrdering Facility: [facility] Address: [address] [place] [address] Performed By: #### 5 8410-2 ####[facility] LABORATORYCLIA [id number] [place] [address] [place] Magnesium SerPl-mCncon 03-17 Magnesium [Mass/Vol] 1.8 mg/dL Normal 1.6-2.6 [facility] Comment on above: Order Comment: Speci men Type: BLOOD SPECIMENOrdering Facility: [facility] Address: [address] [place] [address] Performed By: #### 2 4321-2, , 2776-09 ####[facility]ATORYCLIA [id number] [place] [id number] [place] Phosphate SerPl-mCncon 03-17 Phosphate [Mass/Vol] 1.0 mg/dL Low 2.5-4.9 [facility] Comment on above: Order Comment: Speci men Type: BLOOD SPECIMENOrdering Facility: [facility] Address: [address] [place] [address] Result Comment: CRIT ICAL Elevated m-protein (paraprotein) levels in the serum may be exhibited in patients with monoclonal gammopathies, causing falsely elevated inorganic phosphorus results. Performed By: #### 2 4321-2, 49478-0, 2777-1 ####[facility] [id number] [place] [id number] [place] ALLIED HEALTHon 03-16-2025 ALLIED HEALTH HNO ID: [id number] Author: SUELLEN CALDERON Tech Service: Radiology Author Type: Office Secretary Type: Allied Health Filed: 03/16/2025 01:47 Note [...] PATIENT PRESENTS WITH AN IMPLANTABLE OR ATTACHED SALES REPRESENTATIVE TRAINEE: No ALLERGIES: Reviewed and unchanged CONTRAST ALLERGY: [...] March 16, 2025 TIME: 1:46 AM Normal [facility] ARTERIAL BLOOD GASESon 03-16 Base deficit (BldA) [Moles/Vol] -5 mmol/L Low -2-0 [facility] Comment on above: Order Comment: Reggie fajardo Type: ARTERIAL BLOOD SPECIMEN [facility] Address: [address] [place] [address] Performed By: #### A LLBG #### [facility] CLIA [id number] [address] [place] [address] [place] Body temperature 97.52 [degF] Normal [facility] Comment on above: Order Comment: Reggie fajardo Type: ARTERIAL BLOOD SPECIMEN [facility] Address: [address] [place] [address] Performed By: #### A LLBG #### [facility] [facility] CLIA [id number] [address] [place] [address] [place] Calcium.ionized (Bld) [Mass/Vol] 1.20 mmol/L Normal 1.08-1.30 [facility] Comment on above: Order Comment: Reggie fajardo Type: ARTERIAL BLOOD SPECIMEN Ordering Facility: [facility] Address: [address] [place] [address] Performed By: #### A LLBG #### [facility] CLIA [id number] [address] [place], [place] [address] [place] Carboxyhemoglobin (BldA) [Mass fraction] 0.3 % Normal 0.0-2.0 [facility] Comment on above: Order Comment: Speci men Type: ARTERIAL BLOOD SPECIMEN Ordering Facility: [facility] Address: [address] [place] [address] Result Comment: Carb oxyhemoglobin Reference Range for Smokers: 2.0-8.0% Performed By: #### A LLBG #### [facility] CLIA [id number] [address] [place] [address] [place] CO2 (Bld) [Partial pressure] 46 mm Hg Normal 36-46 [facility] Comment on above: Order Comment: Speci men Type: ARTERIAL BLOOD SPECIMEN Ordering Facility: [facility] Address: [address] [place] [address] Performed By: #### A LLBG #### [facility] CLIA [id number] [address] [place] [address] [place] CO2 adjusted to patient's actual temperature (Bld) [Partial pressure] Normal [facility] Comment on above: Order Comment: Speci men Type: ARTERIAL BLOOD SPECIMEN Ordering Facility: [facility] Address: [address] [place] [address] Performed By: #### A LLBG #### [facility] CLIA [id number] [address] [place] [address] [place] FIO2 100.0 % Normal [facility] Comment on above: Order Comment: Speci men Type: ARTERIAL BLOOD SPECIMEN Ordering Facility: [facility] Address: [address] [place] [address] Performed By: #### A LLBG #### [facility] CLIA [id number] [address] [place] [address] [place] Glucose [Mass/Vol] 187 mg/dL High 60-105 [facility] Comment on above: Order Comment: Speci men Type: ARTERIAL BLOOD SPECIMEN Ordering Facility: [facility] Address: [address] [place] [address] Performed By: #### A LLBG #### [facility] CLIA [id number] [address] [place] [address] [place] HCO3 (Bld) [Moles/Vol] 22 mmol/L Normal 22-26 [facility] Comment on above: Order Comment: Speci men Type: ARTERIAL BLOOD SPECIMEN Ordering Facility: [facility] Address: [address] [place] [address] Performed By: #### A LLBG #### [facility] CLIA [id number] [address] [place] [address] [place] Hemoglobin (Bld) [Mass/Vol] 11.4 g/dL Low 11.5-15.5 [facility] Comment on above: Order Comment: Speci men Type: ARTERIAL BLOOD SPECIMEN Ordering Facility: [facility] Address: [address] [place] [address] Performed By: #### A LLBG #### [facility] IA [id number] [address] [place] [address] [place] INHALED TIDAL VOLUME (ML) 420 [facility] Comment on above: Order Comment: Speci men Type: ARTERIAL BLOOD SPECIMEN Ordering Facility: [facility] Address: [address] [place] [address] Performed By: #### A LLBG #### [facility] IA [id number] [address] [place] [address] [place] INVASIVE VENTILATOR MODE A/C PRVC or VC+ or APVcmv (PC-CMVa) [facility] Comment on above: Order Comment: Speci men Type: ARTERIAL BLOOD SPECIMEN Ordering Facility: [facility] Address: [address] [place] [address] Performed By: #### A LLBG #### [facility] CLIA [id number] [address] [place] [address] [place] Lactate [Moles/Vol] 1.6 mmol/L Normal 0.5-2.2 [facility] Comment on above: Order Comment: Speci men Type: ARTERIAL BLOOD SPECIMEN Ordering Facility: [facility] Address: [address] [place] [address] Performed By: #### A LLBG #### [facility] CLIA [id number] [address] [place] [address] [place] Methemoglobin (Bld) [Mass fraction] 0.4 % Normal 0.0-1.5 [facility] Comment on above: Order Comment: Speci men Type: ARTERIAL BLOOD SPECIMEN Ordering Facility: [facility] Address: [address] [place] [address] Performed By: #### A LLBG #### [facility] CLIA [id number] [address] [place] [address] [place] MINUTE VENTILATION 8 L/min Normal [facility] Comment on above: Order Comment: Speci men Type: ARTERIAL BLOOD SPECIMEN Ordering Facility: [facility] Address: [address] [place] [address] Performed By: #### A LLBG #### [facility] CLIA [id number] [address] [place] [address] [place] O2 THERAPY VENT=Ventilator Normal [facility] Comment on above: Order Comment: Speci men Type: ARTERIAL BLOOD SPECIMEN Ordering Facility: [facility] Address: [address] [place] [address] Performed By: #### A LLBG #### [facility] CLIA [id number] [address] [place] [address] [place] Oxygen (Bld) [Partial pressure] 92 mm Hg Normal 85-95 [facility] Comment on above: Order Comment: Speci men Type: ARTERIAL BLOOD SPECIMEN Ordering Facility: [facility] Address: [address] [place] [address] Performed By: #### A LLBG #### [facility] CLIA [id number] [address] [place] [address] [place] Oxygen adjusted to patient's actual temperature (Bld) [Partial pressure] Normal [facility] Comment on above: Order Comment: Speci men Type: ARTERIAL BLOOD SPECIMEN Ordering Facility: [facility] Address: [address] [place] [address] Performed By: #### A LLBG #### [facility] CLIA [id number] [address] [place] [address] [place] Oxyhemoglobin (BldA) [Mass fraction] 96 % Normal 95-98 [facility] Comment on above: Order Comment: Speci men Type: ARTERIAL BLOOD SPECIMEN Ordering Facility: [facility] Address: [address] [place] [address] Performed By: #### A LLBG #### [facility] CLIA [id number] [address] [place] [address] [place] PEEP/CPAP 8 cmH2O Normal [facility] Comment on above: Order Comment: Speci men Type: ARTERIAL BLOOD SPECIMEN Ordering Facility: [facility] Address: [address] [place] [address] Performed By: #### A LLBG #### [facility] CLIA [id number] [address] [place] [address] [place] pH (Bld) 7.29 [pH] Low 7.35-7.45 [facility] Comment on above: Order Comment: Speci men Type: ARTERIAL BLOOD SPECIMEN Ordering Facility: [facility] Address: [address] [place] [address] Performed By: #### A LLBG #### [facility] CLIA [id number] [address] [place] [address] pH adjusted to patient's actual temperature (Bld) Normal [facility] Comment on above: Order Comment: Speci men Type: ARTERIAL BLOOD SPECIMEN Ordering Facility: [facility] Address: [address] [place] [address] Performed By: #### A LLBG #### [facility] CLIA [id number] [address] [place] [address] [place] PO2 / FIO2 RATIO 92 mmHg Low >300 [facility] Comment on above: Order Comment: Speci men Type: ARTERIAL BLOOD SPECIMEN Ordering Facility: [facility] Address: [address] [place] [address] Performed By: #### A LLBG #### [facility] CLIA [id number] [address] [place] [address] [place] Potassium [Moles/Vol] 3.5 mmol/L Normal 2.5-6.0 [facility] Comment on above: Order Comment: Speci men Type: ARTERIAL BLOOD SPECIMEN Ordering Facility: [facility] Address: [address] [place] [address] Performed By: #### A LLBG #### [facility] CLIA [id number] [address] [place] [address] [place] [facility] SET VENTILATOR RESPIRATORY RATE (BPM) 20 BPM Normal [facility] Comment on above: Order Comment: Speci men Type: ARTERIAL BLOOD SPECIMEN Ordering Facility: [facility] Address: [address] [place] [address] Performed By: #### A LLBG #### [facility] CLIA [id number] [address] [place] [address] [place] Sodium [Moles/Vol] 140 mmol/L Normal 136-144 [facility] Comment on above: Order Comment: Speci men Type: ARTERIAL BLOOD SPECIMEN Ordering Facility: [facility] Address: [address] [place] [address] Performed By: #### A LLBG #### [facility] CLIA [id number] [address] [place] [address] [place] Bacteria Bld Culton 03-16-20 25 Bacteria identified Cx Nom (Bld) CULTURE, BLOOD: No growth 5 days Normal [facility] Comment on above: Performed By: #### 2 4323-8, 3040-3, 81416-0, 2777-1, 2571-8 #### [facility] CLIA [id number] [address] [place] [address] [place] Bacteria identified Cx Nom (Bld) CULTURE, BLOOD: No growth 5 days Normal [facility] Comment on above: Performed By: #### 2 4323-8, 3040-3, 56476-9, 2777-1, 2571-8 #### [facility] CLIA [id number] [address] [place] [address] [place] Bacteria Spec Resp [...] AGNIESZKA STATUS REFERENCE RANGE Penicillin (oral) S <=0.59511 F Susceptible <=0.06 , Intermediate >.06 , Resistant >1 Penicillin Non-Meningitis S <=0.25733 F Susceptible <=2 , Intermediate >2 , Resistant >=8 Penicillin Meningitis S <=0.67525 F Susceptible <=0.06 , Resistant >.06 Ceftriaxone Meningitis S <=0.0625 F Susceptible <=0.5 , Intermediate >.5 , Resistant >=2 Ceftriaxone Non-Meningitis S <=0.0625 F Susceptible <=1 , Intermediate >1 , Resistant >2 Cefepime S <=0.0625 F Susceptible <=1 , Intermediate >1 , Resistant >2 Meropenem S <=0.0625 F Susceptible <=0.25 , Intermediate >.25 , Resistant >.5 Erythromycin S <=0.07223 F Susceptible <=0.25 , Intermediate >.25 , [...] , Intermediate >4 , Resistant >8 Abnormal [facility] Comment on above: Performed By: #### 3 4528-0, 13642-6 #### [facility] CLIA [id number] [address] [place] [address] [place] Basic Metabolic Profile (BMP )on 03-16-2025 BUN Normal 4-19 [facility] Comment on above: Result Comment: Canc elled via OM: Order cancelled - Patient discharged Performed By: #### L 500.2500, L100.0100 ####[facility] [address] [place], [address] BUN/CRE Normal 10-20 [facility] Comment on above: Result Comment: Canc elled via OM: Order cancelled - Patient discharged Performed By: #### L 500.2500, L100.0100 ####[facility] [address] [place], [address] Calcium Normal 7.6-11.0 [facility] Comment on above: Result Comment: Canc elled via OM: Order cancelled - Patient discharged Performed By: #### L 500.2500, L100.0100 ####[facility] [address] [place], [address] CL Normal 98-108 [facility] Comment on above: Result Comment: Canc elled via OM: Order cancelled - Patient discharged Performed By: #### L 500.2500, L100.0100 ####[facility] [address] [place], [address] CO2 Normal 21.0-32.0 [facility] Comment on above: Result Comment: Canc elled via OM: Order cancelled - Patient discharged Performed By: #### L 500.2500, L100.0100 ####[facility] [address] [place], [address] CREAT,SERUM Normal 0.70-1.20 [facility] Comment on above: Result Comment: Canc elled via OM: Order cancelled - Patient discharged Performed By: #### L 500.2500, L100.0100 ####[facility] [address] [place], [address] eGFR Normal >60 [facility] Comment on above: Result Comment: Canc elled via OM: Order cancelled - Patient discharged Performed By: #### L 500.2500, L100.0100 ####[facility] [address] [place], [address] GAP Normal 5-15 [facility] Comment on above: Result Comment: Canc elled via OM: Order cancelled - Patient discharged Performed By: #### L 500.2500, L100.0100 ####[facility] [address] [place], [address] GLU Normal 70-99 [facility] Comment on above: Result Comment: Canc elled via OM: Order cancelled - Patient discharged Performed By: #### L 500.2500, L100.0100 ####[facility] [address] [place], [address] Potassium Normal 3.3-5.1 [facility] Comment on above: Result Comment: Canc elled via OM: Order cancelled - Patient discharged Performed By: #### L 500.2500, L100.0100 ####[facility] [address] [place], [address] Basic Metabolic Profile (BMP) Normal 133-145 [facility] Comment on above: Result Comment: Canc elled via OM: Order cancelled - Patient discharged Performed By: #### L 500.2500, L100.0100 ####[facility] [address] [place], [address] CBC W/Diff, Automatedon 06- Absolute Neut Normal 2.0-7.7 [facility] Comment on above: Result Comment: Canc elled via OM: Order cancelled - Patient discharged Performed By: #### L 500.2500, L100.0100 ####[facility] [address] [place], [address] HCT Normal 37-47 [facility] Comment on above: Result Comment: Canc elled via OM: Order cancelled - Patient discharged Performed By: #### L 500.2500, L100.0100 ####[facility] [address] [place], [address] HGB Normal 12.0-15.0 [facility] Comment on above: Result Comment: Canc elled via OM: Order cancelled - Patient discharged Performed By: #### L 500.2500, L100.0100 ####[facility] [address] [place], [address] MCH Normal 27.0-32.0 [facility] Comment on above: Result Comment: Canc elled via OM: Order cancelled - Patient discharged Performed By: #### L 500.2500, L100.0100 ####[facility] [address] [place], [address] MCHC Normal 32-36 [facility] Comment on above: Result Comment: Canc elled via OM: Order cancelled - Patient discharged Performed By: #### L 500.2500, L100.0100 ####[facility] [address] [place], [address] MCV Normal 81-99 [facility] Comment on above: Result Comment: Canc elled via OM: Order cancelled - Patient discharged Performed By: #### L 500.2500, L100.0100 ####[facility] [address] [place], [address] NEUT% Normal 47-70 [facility] Comment on above: Result Comment: Canc elled via OM: Order cancelled - Patient discharged Performed By: #### L 500.2500, L100.0100 ####[facility] [address] [place], [address] PLT Normal 150-450 [facility] Comment on above: Result Comment: Canc elled via OM: Order cancelled - Patient discharged Performed By: #### L 500.2500, L100.0100 ####[facility] [address] [place], [address] RBC Normal 4.2-5.4 [facility] Comment on above: Result Comment: Canc elled via OM: Order cancelled - Patient discharged Performed By: #### L 500.2500, L100.0100 ####[facility] [address] [place], [address] RDW CV Normal 11.6-14.6 [facility] Comment on above: Result Comment: Canc elled via OM: Order cancelled - Patient discharged Performed By: #### L 500.2500, L100.0100 ####[facility] [address] [place], [address] RDW SD Normal 35.1-43.9 [facility] Comment on above: Result Comment: Canc elled via OM: Order cancelled - Patient discharged Performed By: #### L 500.2500, L100.0100 ####[facility] [address] [place], [address] WBC Normal 4.4-11.0 [facility] Comment on above: Result Comment: Canc elled via OM: Order cancelled - Patient discharged Performed By: #### L 500.2500, L100.0100 ####[facility] [address] [place], [address] CBC panel Auto (Bld)on 03-16 Erythrocyte distribution width (RBC) [Ratio] 14.6 % Normal 11.5-15.0 [facility] Comment on above: Order Comment: Speci men Type: BLOOD SPECIMEN Ordering Facility: [facility] Address: [address] [place] [address] Performed By: #### 5 7610-2 #### [facility] CLIA [id number] [address] [place] [address] [place] Hematocrit (Bld) [Volume fraction] 32.8 % Low 36.0-46.0 [facility] Comment on above: Order Comment: Speci men Type: BLOOD SPECIMEN Ordering Facility: [facility] Address: [address] [place] [address] Performed By: #### 5 8410-2 #### [facility] CLIA [id number] [address] [place] [address] [place] Hemoglobin (Bld) [Mass/Vol] 10.1 g/dL Low 11.5-15.5 [facility] Comment on above: Order Comment: Speci men Type: BLOOD SPECIMEN Ordering Facility: [facility] Address: [address] [place] [address] Performed By: #### 5 8410-2 #### [facility] CLIA [id number] [address] [place] [address] OF [place] MCH (RBC) [Entitic mass] 27.2 pg Normal 26.0-34.0 [facility] Comment on above: Order Comment: Speci men Type: BLOOD SPECIMEN Ordering Facility: [facility] Address: [address] [place] [address] Performed By: #### 5 8410-2 #### [facility] CLIA [id number] [address] [place] [address] [place] MCHC (RBC) [Mass/Vol] 30.8 g/dL Normal 30.5-36.0 [facility] Comment on above: Order Comment: Speci men Type: BLOOD SPECIMEN Ordering Facility: [facility] Address: [address] [place] [address] Performed By: #### 5 8410-2 #### [facility] CLIA [id number] [address] [place] [address] [place] MCV (RBC) [Entitic vol] 88.2 fL Normal 80.0-100.0 [facility] Comment on above: Order Comment: Speci men Type: BLOOD SPECIMEN Ordering Facility: [facility] Address: [address] [place] [id number] Performed By: #### 5 8410-2 #### [facility] CLIA [id number] [address] [place] [address] [place] Nucleated RBC (Bld) [#/Vol] 10*3/uL Normal <0.01 [facility] Comment on above: Order Comment: Speci men Type: BLOOD SPECIMEN Ordering Facility: [facility] Address: [address] [place] [address] Performed By: #### 5 8410-2 #### [facility] CLIA [id number] [address] [place] [address] [place] Platelet mean volume (Bld) [Entitic vol] 10.0 fL Normal 9.0-12.7 [facility] Comment on above: Order Comment: Speci men Type: BLOOD SPECIMEN Ordering Facility: [facility] Address: [address] [place] [address] Performed By: #### 5 8410-2 #### [facility] CLIA [id number] [address] [place] [address] [place] Platelets (Bld) [#/Vol] 337 10*3/uL Normal 150-400 [facility] Comment on above: Order Comment: Speci men Type: BLOOD SPECIMEN Ordering Facility: [facility] Address: [address] [place] [address] Performed By: #### 5 8410-2 #### [facility] CLIA [id number] [address] [place] [address] [place] RBC (Bld) [#/Vol] 3.72 10*6/uL Low 3.90-5.20 [facility] Comment on above: Order Comment: Speci men Type: BLOOD SPECIMEN Ordering Facility: [facility] Address: [address] [place] [address] Performed By: #### 5 8410-2 #### [facility] CLIA [id number] [address] [place], [place] [address] [place] WBC (Bld) [#/Vol] 27.49 10*3/uL High 3.70-11.00 [facility] Comment on above: Order Comment: Speci men Type: BLOOD SPECIMEN Ordering Facility: [facility] Address: [address] [place] [address] Performed By: #### 5 8410-2 #### [facility] CLIA [id number] [address] [place], [place] [address] [facility] CNPNon 03-16-2025 CNPN Telephone (INTMWS) -------- GRACIE BANUELOS ([id number]) 1965 F Date Time Provider Department 03/16/25 MISBAH ELKINS INTMWS During your visit today, we recorded the following information about you: Eva Martines RN 03/16/2025 1:22 PM Signed Patient's daughter calls and wanted provider aware that patient is currently at [facility] on a Ventilator. Daughter apologizes for [...] female [N39.3] (more content not included)... Normal [facility] CONSULT PROGon 03-16-2025 CONSULT PROG HNO ID: [id number] Author: DANIEL REYNA [facility] Service: Pharmacy Author Type: Pharmacist [...] pharmacy if there are questions. Daniel Reyna jennifer [facility] CONSULT PROG HNO ID: [id number] Author: JOSE GUADALUPE GUZMAN [facility] Service: Pharmacy Author Type: Pharmacist [...] Levels: No results found for: FELTON Guzman, [facility] CT ABD/PEL W IVCONon 025 CT ABD/PEL W IVCON * * *Final Report* * * DATE OF EXAM: Mar 16 2025 1:50AM [facility] 0530 - CT ABD/PEL W IVCON [...] stent. * No other acute abdominopelvic process. Simulation Educator: [facility] Transcribe Date/Time: Mar 16 2025 4:01A Dictated by : TRISH BAHENA MD This examination was interpreted and the report reviewed and electronically signed by: TRISH BAHENA MD on Mar 16 2025 4:21AM EST [id number] Normal [facility] CTA CHEST (NON GATED) W IVCO N PEon 03-16-2025 CTA CHEST (NON GATED) W IVCON PE * * *Final Report* * * DATE OF EXAM: Mar 16 2025 1:50AM [facility] 0564 - CTA CHEST (NON GATED) W [...] to resolution, underlying lung nodules/mass not excluded. Simulation Educator: [facility] Transcribe Date/Time: Mar 16 2025 3:49A Dictated by : SUELLEN SÁNCHEZ MD This examination was interpreted and the report reviewed and electronically signed by: SUELLEN SÁNCHEZ MD on Mar 16 2025 4:00AM EST [id number] [facility] Comprehensive metabolic 2000 panelon 03-16-2025 Albumin [Mass/Vol] 2.7 g/dL Low 3.2-5.0 [facility] Comment on above: Order Comment: Speci men Type: BLOOD SPECIMEN Ordering Facility: [facility] Address: [address] [place] [address] Performed By: #### 2 4323-8, 3040-3, 27857-5, 2777-1, 257-8 #### [facility] CLIA [id number] [address] [place] [address] [place] ALP [Catalytic activity/Vol] 143 U/L High 45-117 [facility] Comment on above: Order Comment: Speci men Type: BLOOD SPECIMEN Ordering Facility: [facility] Address: [address] [place] [address] Performed By: #### 2 4323-8, 3040-3, 78724-8, 7-1, 257-8 #### [facility] CLIA [id number] [address] [place] [address] [place] ALT [Catalytic activity/Vol] 17 U/L Normal 13-61 [facility] Comment on above: Order Comment: Speci men Type: BLOOD SPECIMEN Ordering Facility: [facility] Address: [address] [place] [address] Result Comment: Resu lts may be falsely depressed after the administration of Sulfasalazine and/or Sulfapyridine. Performed By: #### 2 4323-8, 3040-3, 65537-9, 277-1, 257-8 #### [facility] CLIA [id number] [address] [place], [place] [address] [place] Anion gap [Moles/Vol] 18 mmol/L High 5-16 [facility] Comment on above: Order Comment: Speci men Type: BLOOD SPECIMEN Ordering Facility: [facility] Address: [address] [place] [address] Performed By: #### 2 4323-8, 3040-3, 76859-6, 2777-1, 2571-8 #### [facility] CLIA [id number] [address] [place], [place] [address] [place] AST [Catalytic activity/Vol] 13 U/L Normal 8-34 [facility] Comment on above: Order Comment: Speci men Type: BLOOD SPECIMEN Ordering Facility: [facility] Address: [address] [place] [address] Result Comment: Resu lts may be falsely depressed after the administration of Sulfasalazine and/or Sulfapyridine. Performed By: #### 2 4323-8, 3040-3, 95996-8, 2776-, 8 #### [facility] CLIA [id number] [address] [place] [address] [place] Bilirubin [Mass/Vol] 0.3 mg/dL Normal 0.2-1.0 [facility] Comment on above: Order Comment: Kettyi tana Type: BLOOD SPECIMEN Ordering Facility: [facility] Address: [address] [place] [address] Performed By: #### 2 4323-8, 3040-3, 51606-4, 2776-09, 8 #### [facility] CLIA [id number] [address] [place] [address] [place] Calcium [Mass/Vol] 9.3 mg/dL Normal 8.5-10.5 [facility] Comment on above: Order Comment: Kettyi tana Type: BLOOD SPECIMEN Ordering Facility: [facility] Address: [address] [place] [address] Performed By: #### 2 4323-8, 3040-3, 50042-6, 2776-1, 8 #### [facility] CLIA [id number] [address] [place], [place] [address] [place] Chloride [Moles/Vol] 99 mmol/L Normal 98-107 [facility] Comment on above: Order Comment: Speci men Type: BLOOD SPECIMEN Ordering Facility: [facility] Address: [address] [place], [place] [address] Performed By: #### 2 4323-8, 3040-3, 17247-2, 2776-1, 2570-8 #### [facility] CLIA [id number] [address] [place] [address] [place] CO2 [Moles/Vol] 23 mmol/L Normal 21-32 [facility] Comment on above: Order Comment: Speci men Type: BLOOD SPECIMEN Ordering Facility: [facility] Address: [address] [place] [address] Performed By: #### 2 4323-8, 3040-3, 43329-8, 2777-1, 8 #### [facility] CLIA [id number] [address] [place] [address] [place] Creatinine [Mass/Vol] 0.93 mg/dL Normal 0.51-0.95 [facility] Comment on above: Order Comment: Speci men Type: BLOOD SPECIMEN Ordering Facility: [facility] Address: [address] [place] [address] Result Comment: Gretta ents receiving either N-Acetylcysteine (NAC) or Metamizole prior to venipuncture, may have falsely depressed results. Performed By: #### 2 4323-8, 3040-3, 50910-8, 2776-, 8 #### [facility] CLIA [id number] [address] [place] [address] [place] Creatinine and Glomerular filtration rate.predicted panel (S/P/Bld) 70 mL/min/1.73m??? Normal >=60 [facility] Comment on above: Order Comment: Speci men Type: BLOOD SPECIMEN Ordering Facility: [facility] Address: [address] [place] [address] Result Comment: Pavan mated Glomerular Filtration Rate [...] GFR. Performed By: #### 2 4323-8, 3040-3, 58745-7, 2776-1, 2571-04 #### [facility] CLIA [id number] [address] [place], [place] [address] [place] Glucose [Mass/Vol] 175 mg/dL High 70-100 [facility] Comment on above: Order Comment: Reggie fajardo Type: BLOOD SPECIMEN Ordering Facility: [facility] Address: [address] [place] [address] Result Comment: The [place] Diabetes [employer] (ADA) provides guidance for cutoff [...] Standards of Medical Care in Diabetes 2016, [place] [employer]. Diabetes Care. 2016.39(Suppl 1). Results may be falsely elevated after the administration of Sulfapyridine. Results may be falsely depressed after the administration of Sulfasalazine. Performed By: #### 2 4323-8, 3040-3, 66307-3, 2777-, 2571-04 #### [facility] CLIA [id number] [address] [place], [place] [address] [place] Potassium [Moles/Vol] 3.9 mmol/L Normal 3.5-5.1 [facility] Comment on above: Order Comment: Reggie fajardo Type: BLOOD SPECIMEN Ordering Facility: [facility] Address: [address] [place] [address] Performed By: #### 2 4323-8, 3040-3, 58116-5, 277-, 2571-04 #### [facility] CLIA [id number] [address] [place], [place] [address] [place] Protein [Mass/Vol] 6.6 g/dL Normal 6.0-8.5 [facility] Comment on above: Order Comment: Speci men Type: BLOOD SPECIMEN Ordering Facility: [facility] Address: [address] [place], [place] [address] Performed By: #### 2 4323-8, 3040-3, 07040-0, 2777-1, 257-8 #### [facility] CLIA [id number] [address] [place], [place] [address] [place] Sodium [Moles/Vol] 140 mmol/L Normal 136-145 [facility] Comment on above: Order Comment: Speci men Type: BLOOD SPECIMEN Ordering Facility: [facility] Address: [address] [place], [place] [address] Performed By: #### 2 4323-8, 3040-3, 20134-8, 2777-1, 257-8 #### [facility] CLIA [id number] [address] [place], [place] [address] [place] Urea nitrogen [Mass/Vol] 12 mg/dL Normal 7- [facility] Comment on above: Order Comment: Speci men Type: BLOOD SPECIMEN Ordering Facility: [facility] Address: [address] [place] [address] Performed By: #### 2 4323-8, 3040-3, 77835-4, 2777-1, 257-8 #### [facility] CLIA [id number] [address] [place], [place] [address] [place] Gas and Carbon monoxide pane l (BldV)on 03-16-2025 Base excess Calc (BldV) [Moles/Vol] 1 mmol/L Normal 0-2 [facility] Comment on above: Order Comment: Speci men Type: BLOOD SPECIMEN Ordering Facility: [facility] Address: [address] [place] [address] Performed By: #### 5 8410-2 #### [facility] CLIA [id number] [address] [place], [place] [address] [place] Body temperature 100.94 [degF] Normal [facility] Comment on above: Order Comment: Speci men Type: BLOOD SPECIMEN Ordering Facility: [facility] Address: [address] [place] [address] Performed By: #### 5 8410-2 #### [facility] CLIA [id number] [address] [place] [address] [place] Calcium.ionized (Bld) [Mass/Vol] 1.14 mmol/L Normal 1.08-1.30 [facility] Comment on above: Order Comment: Speci men Type: BLOOD SPECIMEN Ordering Facility: [facility] Address: [address] [place] [address] Performed By: #### 5 8410-2 #### [facility] CLIA [id number] [address] [place] [address] [place] Carboxyhemoglobin (BldV) [Mass fraction] 1.0 % Normal 0.0-2.0 [facility] Comment on above: Order Comment: Speci men Type: BLOOD SPECIMEN Ordering Facility: [facility] Address: [address] [place] [address] Result Comment: Carb oxyhemoglobin Reference Range for Smokers: 2.0-8.0% Performed By: #### 5 8410-2 #### [facility] CLIA [id number] [address] [place] [address] [place] CO2 (BldV) [Partial pressure] 47 mm[Hg] Normal 42-55 [facility] Comment on above: Order Comment: Speci men Type: BLOOD SPECIMEN Ordering Facility: [facility] Address: [address] [place] [address] Performed By: #### 5 8410-2 #### [facility] CLIA [id number] [address] [place] [address] [place] CO2 adjusted to patient's actual temperature (BldV) [Partial pressure] Normal [facility] Comment on above: Order Comment: Speci men Type: BLOOD SPECIMEN Ordering Facility: [facility] Address: [address] [place] [address] Performed By: #### 5 8410-2 #### [facility] CLIA [id number] [address] [place] [address] [place] Glucose [Mass/Vol] 190 mg/dL High 60-105 [facility] Comment on above: Order Comment: Speci men Type: BLOOD SPECIMEN Ordering Facility: [facility] Address: [address] [place] [address] Performed By: #### 5 8410-2 #### [facility] CLIA [id number] [address] [place], [place] [address] [place] HCO3 (Bld) [Moles/Vol] 26 mmol/L Normal 24-28 [facility] Comment on above: Order Comment: Speci men Type: BLOOD SPECIMEN Ordering Facility: [facility] Address: [address] [place] [address] Performed By: #### 5 8410-2 #### [facility] CLIA [id number] [address] [place] [address] [place] Hemoglobin (Bld) [Mass/Vol] 11.5 g/dL Normal 11.5-15.5 [facility] Comment on above: Order Comment: Speci men Type: BLOOD SPECIMEN Ordering Facility: [facility] Address: [address] [place], [place] [address] Performed By: #### 5 8410-2 #### [facility] CLIA [id number] [address] [place] [address] [place] Lactate [Moles/Vol] 2.5 mmol/L High 0.5-2.2 [facility] Comment on above: Order Comment: Speci men Type: BLOOD SPECIMEN Ordering Facility: [facility] Address: [address] [place] [address] Performed By: #### 5 8410-2 #### [facility] CLIA [id number] [address] [place] [address] [place] Methemoglobin (Bld) [Mass fraction] 0.1 % Normal 0.0-1.5 [facility] Comment on above: Order Comment: Speci men Type: BLOOD SPECIMEN Ordering Facility: [facility] Address: [address] [place] [address] Performed By: #### 5 8410-2 #### [facility] CLIA [id number] [address] [place] [address] [place] O2 THERAPY VENT=Ventilator Normal [facility] Comment on above: Order Comment: Speci men Type: BLOOD SPECIMEN Ordering Facility: [facility] Address: [address] [place] [address] Performed By: #### 5 8410-2 #### [facility] CLIA [id number] [address] [place] [address] [place] Oxygen (BldV) [Partial pressure] 33 mm[Hg] Low 35-45 [facility] Comment on above: Order Comment: Speci men Type: BLOOD SPECIMEN Ordering Facility: [facility] Address: [address] [place] [address] Performed By: #### 5 8410-2 #### [facility] CLIA [id number] [address] [place] [address] [place] Oxygen adjusted to patient's actual temperature (BldV) [Partial pressure] Normal [facility] Comment on above: Order Comment: Speci men Type: BLOOD SPECIMEN Ordering Facility: [facility] Address: [address] [place] [address] Performed By: #### 5 8410-2 #### [facility] CLIA [id number] [address] [place] [address] [place] Oxyhemoglobin (BldV) [Mass fraction] 60 % Normal 4-98 [facility] Comment on above: Order Comment: Speci men Type: BLOOD SPECIMEN Ordering Facility: [facility] Address: [address] [place], [place] [address] Performed By: #### 5 8410-2 #### [facility] CLIA [id number] [address] [place] [address] [place] pH (BldV) 7.37 [pH] Normal 7.32-7.42 [facility] Comment on above: Order Comment: Speci men Type: BLOOD SPECIMEN Ordering Facility: [facility] Address: [address] [place] [address] Performed By: #### 5 8410-2 #### [facility] CLIA [id number] [address] [place] [address] [place] pH adjusted to patient's actual temperature (BldV) Normal [facility] Comment on above: Order Comment: Speci men Type: BLOOD SPECIMEN Ordering Facility: [facility] Address: [address] [place] [address] Performed By: #### 5 8410-2 #### [facility] CLIA [id number] [address] [place] [address] [place] Potassium [Moles/Vol] 3.5 mmol/L Normal 2.5-6.0 [facility] Comment on above: Order Comment: Speci men Type: BLOOD SPECIMEN Ordering Facility: [facility] Address: [address] [place] [address] Performed By: #### 5 8410-2 #### [facility] CLIA [id number] [address] [place] [address] [place] Sodium [Moles/Vol] 139 mmol/L Normal 136-144 [facility] Comment on above: Order Comment: Speci men Type: BLOOD SPECIMEN Ordering Facility: [facility] Address: [address] [place] [address] Performed By: #### 5 8410-2 #### [facility] CLIA [id number] [address] [place], [place] [address] [place] Gram Stainon 03-16-2025 GS Gram Stain 3+ Gram positive diplococci 2+ White Blood Cells No Epithelial cells Normal [facility] Comment on above: Performed By: #### M 100.2000, M100.2400 ####[facility] [id number] [place], [address] Legionella Ag Ur Qlon 2024 Legionella sp Ag Ql (U) Negative Normal Negative [facility] Comment on above: Order Comment: Speci men Type: ARTERIAL BLOOD SPECIMEN Ordering Facility: [facility] Address: [address] [place] [address] Performed By: #### A LLBG #### [facility] CLIA [id number] [address] [place], [place] [address] [place] Lipase SerPl-cCncon 03-16-20 25 Lipase [Catalytic activity/Vol] 51 U/L Normal 12-60 [facility] Comment on above: Order Comment: Speci men Type: BLOOD SPECIMEN Ordering Facility: [facility] Address: [address] [place] [address] Performed By: #### 2 4323-8, 3040-3, 04753-5, 2777-1, 2571-8 #### [facility] CLIA [id number] [address] [place] [address] [place] Magnesium SerPl-mCncon 03-16 Magnesium [Mass/Vol] 1.1 mg/dL Low 1.6-2.6 [facility] Comment on above: Order Comment: Speci men Type: BLOOD SPECIMEN Ordering Facility: [facility] Address: [address] [place] [address] Performed By: #### 2 4323-8, 3040-3, 40231-6, 2777-1, 2571-8 #### [facility] CLIA [id number] [address] [place], [place] [address] [place] NUTRITIONon 03-16-2025 NUTRITION HNO ID: [id number] Author: GABE MILAN RD Service: Nutrition Therapy [...] Stage 3 severe COPD by GOLD classification ([facility]) 2018 Tobacco use greater than 30 years Unspecified hemorrhoids without mention of complication Urine, incontinence, stress female 11/24/2014 Intake History: Nutrition Intake Prior to Admission: Unable to determine Current Nutrition Intake: NPO Current Intake Over time: (1 day LOS) Dosing Weight: 60.8 kg (134 lb) Dosing Weight Type: Current weight Estimated kilocalorie needs: 0919-7210 Calorie Calculation Method: 25-30 kcals/kg Estimated protein needs (grams): 73-92 Grams protein determined by: 1.2 - 1.5 g/kg Diet Orders (From admission, onward) Start Ordered 03/15/25 2316 DIET NPO START NOW 03/15/25 7707 Anthropometrics: Height: 165.1 cm (5' 5) Weight: [...] March 16, 2025 TIME: 3:44 PM Normal [facility] PT panel Coag (PPP)on 2024 INR Coag (PPP) [Relative time] 1.1 {INR} Normal 0.9-1.3 [facility] Comment on above: Order Comment: Speci men Type: BLOOD SPECIMEN Ordering Facility: [facility] Address: [address] [place] [address] Result Comment: Zandra min K Antagonist (VKA) Therapeutic Range: INR 2 to 3 (Target INR of 2.5) Note: For patients treated with VKA drugs, such as warfarin, the [place] [employer] 2012 Guideline recommends [...] Chest 2012, 141:7S-47S Alessandro RA, et al. [facility] 2017, 70: 252-289 Performed By: #### 3 4528-0, 35125-5 #### [facility] CLIA [id number] [address] [place] [address] [place] PT Coag (PPP) [Time] 12.1 s Normal 9.7-13.0 [facility] Comment on above: Order Comment: Reggie fajardo Type: BLOOD SPECIMEN Ordering Facility: [facility] Address: [address] [place] [address] Performed By: #### 3 4528-0, 33106-0 #### [facility] CLIA [id number] [address] [place] [address] [place] Phosphate SerPl-mCncon 03-16 Phosphate [Mass/Vol] 2.9 mg/dL Normal 2.5-4.9 [facility] Comment on above: Order Comment: Reggie fajardo Type: ARTERIAL BLOOD SPECIMEN Ordering Facility: [facility] Address: [address] [place] [address] Result Comment: Elev ated m-protein (paraprotein) levels in the serum may be exhibited in patients with monoclonal gammopathies, causing falsely elevated inorganic phosphorus results. Performed By: #### A LLBG #### [facility] CLIA [id number] [address] [place] [address] [place] Procalcitonin SerPl-mCncon 0 03-16-2025 Procalcitonin [Mass/Vol] 0.68 ng/mL High 0.00-0.50 [facility] Comment on above: Order Comment: Reggie fajardo Type: ARTERIAL BLOOD SPECIMEN Ordering Facility: [facility] Address: [address] [place] [address] Result Comment: PCT Concentration Interpretation PCT <=0.1 [...] shock. Performed By: #### A LLBG #### [facility] CLIA [id number] [address] [place] [address] [place] SEPSIS LACTATE W/ REFLEX (IN ITIAL)on 03-16-2025 Lactate [Moles/Vol] 1.3 mmol/L Normal 0.4-2.0 [facility] Comment on above: Order Comment: Reggie fajardo Type: BLOOD SPECIMEN Ordering Facility: [facility] Address: [address] [place] [address] Performed By: #### S LACTR #### [facility] CLIA [id number] [address] [place] [address] [place] STAPHYLOCOCCUS AUREUS AND MR SA SCREEN, PCR, NASALon 03-16-2025 S. aureus and MRSA panel KANDY+probe (Nose) Methicillin-SUSCEPTIBLE Staphylococcus aureus Detected Abnormal Not Detected [facility] Comment on above: Order Comment: Reggie fajardo Type: BLOOD SPECIMEN Ordering Facility: [facility] Address: [address] [place] [address] Performed By: #### 5 8410-2 #### [facility] CLIA [id number] [address] [place], [place] [address] [place] STREPTOCOCCUS PNEUMONIAE ANT IGEN URINEon 03-16-2025 STREPTOCOCCUS PNEUMONIAE ANTIGEN URINE STREP PNEUMO AG RESULT: Negative for Streptococcus pneumoniae antigen. Presumptive negative for pneumococcal pneumonia, suggesting no current or recent pneumococcal infection. Infection due to S.pneumoniae cannot be ruled out since the antigen present in the sample may be below the detection limit of the test. Normal [facility] Comment on above: Performed By: #### A LLBG #### [facility] CLIA [id number] [address] [place] [address] Trigl SerPl-mCncon Triglyceride [Mass/Vol] 159 mg/dL High 30-149 [facility] Comment on above: Order Comment: Speci men Type: ARTERIAL BLOOD SPECIMEN Ordering Facility: [facility] Address: [address] [place] [address] Result Comment: <150 mg/dL, Normal 150-199 mg/dL, Borderline high 200-499 mg/dL, High >499 mg/dL, Very high Reference: 1. National Cholesterol Education Program ATP III Guideline At-A-Glance Quick Desk Reference: National Heart, Lung, and Blood [place]. National Institutes of Health. 2001: [facility] Publication No. 01-3305. Patients receiving either N-Acetylcysteine (NAC) or Metamizole prior to venipuncture, may have falsely depressed results. Performed By: #### A LLBG #### [facility] CLIA [id number] [address] [place] [address] Triglyceride [Mass/Vol]on FASTING TIME Not none Normal [facility] Comment on above: Order Comment: Speci men Type: ARTERIAL BLOOD SPECIMEN Ordering Facility: [facility] Address: [address] [place] [address] Performed By: #### A LLBG #### [facility] CLIA [id number] [address] [place] [address] Urinalysis complete panel (U )on 03-16-2025 Bacteria LM.HPF (Urine sed) [#/Area] Rare Abnormal None Seen [facility] Comment on above: Order Comment: Speci men Type: ARTERIAL BLOOD SPECIMEN Ordering Facility: [facility] Address: [address] [place] [address] Performed By: #### A LLBG #### [facility] CLIA [id number] [address] [place] [address] Bilirubin Ql (U) Negative Normal Negative [facility] Comment on above: Order Comment: Speci men Type: ARTERIAL BLOOD SPECIMEN Ordering Facility: [facility] Address: [address] [place] [address] Performed By: #### A LLBG #### [facility] CLIA [id number] [address] [place] [address] [place] Clarity (Unsp spec) Clear Normal Clear [facility] Comment on above: Order Comment: Speci men Type: ARTERIAL BLOOD SPECIMEN Ordering Facility: [facility] Address: [address] [place] [address] Performed By: #### A LLBG #### [facility] CLIA [id number] [address] [place] [address] [place] Color (U) Colorless Normal Yellow [facility] Comment on above: Order Comment: Speci men Type: ARTERIAL BLOOD SPECIMEN Ordering Facility: [facility] Address: [address] [place] [address] Performed By: #### A LLBG #### [facility] CLIA [id number] [address] [place] [address] [place] Epithelial cells LM.HPF (Urine sed) [#/Area] None Seen Normal [facility] Comment on above: Order Comment: Speci men Type: ARTERIAL BLOOD SPECIMEN Ordering Facility: [facility] Address: [address] [place] [address] Performed By: #### A LLBG #### [facility] CLIA [id number] [address] [place] [address] [place] Glucose Test strip (U) [Mass/Vol] 1+ Abnormal Negative [facility] Comment on above: Order Comment: Speci men Type: ARTERIAL BLOOD SPECIMEN Ordering Facility: [facility] Address: [address] [place] [address] Performed By: #### A LLBG #### [facility] CLIA [id number] [address] [place] [address] [place] Hemoglobin Ql (U) 1+ Abnormal Negative [facility] Comment on above: Order Comment: Speci men Type: ARTERIAL BLOOD SPECIMEN Ordering Facility: [facility] Address: [address] [place] [address] Performed By: #### A LLBG #### [facility] CLIA [id number] [address] [place] [address] Ketones Ql (U) 1+ Abnormal Negative [facility] Comment on above: Order Comment: Speci men Type: ARTERIAL BLOOD SPECIMEN Ordering Facility: [facility] Address: [address] [place] [address] Performed By: #### A LLBG #### [facility] CLIA [id number] [address] [place] [address] [place] Leukocyte esterase Test strip Ql (U) Negative Normal Negative [facility] Comment on above: Order Comment: Speci men Type: ARTERIAL BLOOD SPECIMEN Ordering Facility: [facility] Address: [address] [place] [address] Performed By: #### A LLBG #### [facility] CLIA [id number] [address] [place] [address] [place] Nitrite Ql (U) Negative Normal Negative [facility] Comment on above: Order Comment: Speci men Type: ARTERIAL BLOOD SPECIMEN Ordering Facility: [facility] Address: [address] [place] [address] Performed By: #### A LLBG #### [facility] CLIA [id number] [address] [place] [address] [place] pH (U) 6.0 [pH] Normal 5.0-8.0 [facility] Comment on above: Order Comment: Speci men Type: ARTERIAL BLOOD SPECIMEN Ordering Facility: [facility] Address: [address] [place] [address] Performed By: #### A LLBG #### [facility] CLIA [id number] [address] [place] [address] [place] Protein (U) [Mass/Vol] Negative Normal Negative [facility] Comment on above: Order Comment: Speci men Type: ARTERIAL BLOOD SPECIMEN Ordering Facility: [facility] Address: [address] [place] [address] Performed By: #### A LLBG #### [facility] CLIA [id number] [address] [place] [address] [place] RBC LM.HPF (Urine sed) [#/Area] 0-3 /HPF Normal 0-3 /HPF [facility] Comment on above: Order Comment: Speci men Type: ARTERIAL BLOOD SPECIMEN Ordering Facility: [facility] Address: [address] [place] [address] Performed By: #### A LLBG #### [facility] CLIA [id number] [address] [place] [address] OF [place] Specific gravity (U) [Rel density] 1.026 Normal 1.005-1.030 [facility] Comment on above: Order Comment: Speci men Type: ARTERIAL BLOOD SPECIMEN Ordering Facility: [facility] Address: [address] [place] [address] Performed By: #### A LLBG #### [facility] CLIA [id number] [address] [place] [address] Urobilinogen Ql (U) Negative Normal Negative [facility] Comment on above: Order Comment: Speci men Type: ARTERIAL BLOOD SPECIMEN Ordering Facility: [facility] Address: [address] [place] [address] Performed By: #### A LLBG #### [facility] CLIA [id number] [address] [place] [address] WBC LM.HPF (Urine sed) [#/Area] 0-5 /HPF Normal 0-5 /HPF [facility] Comment on above: Order Comment: Speci men Type: ARTERIAL BLOOD SPECIMEN Ordering Facility: [facility] Address: [address] [place] [address] Performed By: #### A LLBG #### [facility] CLIA [id number] [address] [place] [address] OF [place] XR CHEST 1V FRONTAL PORTon 0 - XR CHEST 1V FRONTAL PORT * * [...] change in the appearance of the chest. Simulation Educator: PSCB Transcribe Date/Time: Mar 16 2025 2:26P Dictated by : JOSE GUADALUPE MOROCHO MD This examination was interpreted and the report reviewed and electronically signed by: JOSE GUADALUPE MOROCHO MD on Mar 16 2025 2:30PM EST [id number] Normal [facility] aPTT PPPon 03-16-2025 aPTT Coag (PPP) [Time] 26.3 s Normal 23.0-32.4 [facility] Comment on above: Order Comment: Speci men Type: BLOOD SPECIMEN Ordering Facility: [facility] Address: [address] [place] [address] Performed By: #### 3 4528-0, 71563-4 #### [facility] CLIA [id number] [address] [place] [address] [employer] OF [facility] ALLIED HEALTHon 03-15-2025 ALLIED HEALTH HNO ID: [id number] Author: SYD CHOUDHARY RT(R) Service: ? Author Type: Office Secretary Type: Allied Health Filed: 03/15/2025 23:51 Note [...] PATIENT PRESENTS WITH AN IMPLANTABLE OR ATTACHED SALES REPRESENTATIVE TRAINEE: No RADIOLOGY DEPARTMENT: General X-ray: Exam(s) Completed: Chest X-Ray Abdomen X-Ray: Abdomen PERIPHERAL IV DATA: Not applicable SIGNED BY: Syd Choudhary RT(R) March 15, 2025 11:51 PM [facility] Absolute lymphocyte countOrd ered By: Sudhir Izquierdo on 03-15-2025 Lymphocytes Auto (Unsp spec) [#/Vol] 1.20 10*3/uL 0.83-4.51 [facility] Anion gap in Serum or Plasma Ordered By: Sudhir Izquierdo on 03-15-2025 Anion gap [Moles/Vol] 14 mmol/L 5-15 [facility] Assessment of wrist artery p atency prior to arterial punctureOrdered By: Sudhir Izquierdo on 06-18-2025 Arterial patency Wrist artery --pre arterial puncture Positive [facility] Automated lymphocyte count a s percentage of total leukocytesOrdered By: Sudhir Izquierdo on 03-15-2025 Lymphocytes/100 WBC Auto (Unsp spec) 5.8 % Low 19-41 [facility] BUN/creatinine ratioOrdered By: Sudhir Izquierdo on 03-15-2025 Urea nitrogen/Creatinine [Mass ratio] 15.6 mg/mg 10-20 [facility] Basophil percentageOrdered B y: Sudhir Izquierdo on 03-15-2025 Basophils/100 WBC (Bld) 0.4 % 0-1 [facility] Bilirubin, totalOrdered By: Sudhir Izquierdo on 03-15-2025 Bilirubin [Mass/Vol] 0.24 mg/dL 0.00-1.30 [facility] SERGEI TEST Positive Normal [facility] Comment on above: Performed By: #### L 9000.0800 ####[facility] [address] [place], [address] Base excess Calc (Bld) [Moles/Vol] 0 mmol/L Normal -2 to +2 [facility] Comment on above: Performed By: #### L 9000.0800 ####[facility] [address] [place], [address] Blood Gas Type ART Normal [facility] Comment on above: Performed By: #### L 9000.0800 ####[facility] [address] [place], [address] CO2 [Moles/Vol] 29 mmol/L Normal [facility] Comment on above: Performed By: #### L 9000.0800 ####[facility] [address] [place], [address] FI02 90.0 Normal [facility] Comment on above: Performed By: #### L 9000.0800 ####[facility] [address] [place], [address] HCO3 (Bld) [Moles/Vol] 26.8 mmol/L High 22-26 [facility] Comment on above: Performed By: #### L 9000.0800 ####[facility] [address] [place], [address] Mode AC Normal [facility] Comment on above: Performed By: #### L 9000.0800 ####[facility] [address] [place], [address] O2 Delivery Dev ET Tube Normal [facility] Comment on above: Performed By: #### L 9000.0800 ####[facility] [address] [place], [address] pCO2 59.5 mmHg High 35-45 [facility] Comment on above: Performed By: #### L 9000.0800 ####[facility] [address] [place], [address] PEEP 12 Normal [facility] Comment on above: Performed By: #### L 9000.0800 ####[facility] [address] [place], [address] pH (Bld) 7.26 [pH] Low 7.35-7.45 [facility] Comment on above: Performed By: #### L 9000.0800 ####[facility] [address] [place], [address] PO2 75 mmHG Normal 75-100 [facility] Comment on above: Performed By: #### L 9000.0800 ####[facility] [address] [place], [address] RR 16 Normal [facility] Comment on above: Performed By: #### L 9000.0800 ####[facility] [address] [place], [address] SITE R Radial Normal [facility] Comment on above: Performed By: #### L 9000.0800 ####[facility] [address] [place], [address] SO2 92 Low 95-99 [facility] Comment on above: Performed By: #### L 9000.0800 ####[facility] [address] [place], [address] Vt 450.0 mL Normal [facility] Comment on above: Performed By: #### L 9000.0800 ####[facility] [address] [place], [address] Base excess Calc (Bld) [Moles/Vol] 1 mmol/L Normal -2 to +2 [facility] Comment on above: Performed By: #### L 9000.0800 ####[facility] [address] [place], [address] Blood Gas Type ART Normal [facility] Comment on above: Performed By: #### L 9000.0800 ####[facility] [address] [place], [address] CO2 [Moles/Vol] 32 mmol/L Normal [facility] Comment on above: Performed By: #### L 9000.0800 ####[facility] [address] [place], [address] FI02 100.0 Normal [facility] Comment on above: Performed By: #### L 9000.0800 ####[facility] [address] [place], [address] HCO3 (Bld) [Moles/Vol] 29.3 mmol/L High 22-26 [facility] Comment on above: Performed By: #### L 9000.0800 ####[facility] [address] [place], [address] Mode AC Normal [facility] Comment on above: Performed By: #### L 9000.0800 ####[facility] [address] [place], [address] O2 Delivery Dev Adult Vent [facility] Comment on above: Performed By: #### L 9000.0800 ####[facility] [address] [place], [address] pCO2 77.2 mmHg Invalid Interpretation Code 35-45 [facility] Comment on above: Performed By: #### L 9000.0800 ####[facility] [address] [place], [address] PEEP 12 [facility] Comment on above: Performed By: #### L 9000.0800 ####[facility] [address] [place], [address] pH (Bld) 7.19 [pH] Invalid Interpretation Code 7.35-7.45 [facility] Comment on above: Performed By: #### L 9000.0800 ####[facility] [address] [place], [address] PO2 49 mmHG Low 75-100 [facility] Comment on above: Performed By: #### L 9000.0800 ####[facility] [address] [place], [address] Read Back By Yes [facility] Comment on above: Performed By: #### L 9000.0800 ####[facility] [address] [place], [address] Results To [facility] Comment on above: Performed By: #### L 9000.0800 ####[facility] [address] [place], [address] RR 16 [facility] Comment on above: Performed By: #### L 9000.0800 ####[facility] [address] [place], [address] SITE R Brach Normal [facility] Comment on above: Performed By: #### L 8999.08 ####[facility] [address] [place], [address] SO2 72 Low 95-99 [facility] Comment on above: Performed By: #### L 8999.0800 ####[facility] [address] [place], [address] Time Given 17:53:45 Normal [facility] Comment on above: Performed By: #### L 8999.0800 ####[facility] [address] [place], [address] Vt 400.0 mL Normal [facility] Comment on above: Performed By: #### L 8999.0800 ####[facility] [address] [place], [address] Base excess Calc (Bld) [Moles/Vol] -1 mmol/L Normal -2 to +2 [facility] Comment on above: Performed By: #### L 8999.0800 ####[facility] [address] [place], [address] Blood Gas Type ART Normal [facility] Comment on above: Performed By: #### L 8999.0800 ####[facility] [address] [place], [address] CO2 [Moles/Vol] 31 mmol/L Normal [facility] Comment on above: Performed By: #### L 8999.0800 ####[facility] [address] [place], [address] FI02 100.0 Normal [facility] Comment on above: Performed By: #### L 8999.0800 ####[facility] [address] [place], [address] HCO3 (Bld) [Moles/Vol] 28.5 mmol/L High 22-26 [facility] Comment on above: Performed By: #### L 9000.0800 ####[facility] [address] [place], [address] Mode Not entered Normal [facility] Comment on above: Performed By: #### L 9000.0800 ####[facility] [address] [place], [address] O2 Delivery Dev BiPAP Normal [facility] Comment on above: Performed By: #### L 9000.0800 ####[facility] [address] [place], [address] pCO2 83.5 mmHg Invalid Interpretation Code 35-45 [facility] Comment on above: Performed By: #### L 9000.0800 ####[facility] [address] [place], [address] PEEP 10 Normal [facility] Comment on above: Performed By: #### L 9000.0800 ####[facility] [address] [place], [address] pH (Bld) 7.14 [pH] Invalid Interpretation Code 7.35-7.45 [facility] Comment on above: Performed By: #### L 9000.0800 ####[facility] [address] [place], [address] PO2 74 mmHG Low 75-100 [facility] Comment on above: Performed By: #### L 9000.0800 ####[facility] [address] [place], [address] Read Back By Yes Normal [facility] Comment on above: Performed By: #### L 9000.0800 ####[facility] [address] [place], [address] Results To BROWN [facility] Comment on above: Performed By: #### L 9000.0800 ####[facility] [address] [place], [address] RR 16 Normal [facility] Comment on above: Performed By: #### L 9000.0800 ####[facility] [address] [place], [address] SITE R Brach [facility] Comment on above: Performed By: #### L 9000.0800 ####[facility] [address] [place], [address] SO2 88 Low 95-99 [facility] Comment on above: Performed By: #### L 9000.0800 ####[facility] [address] [place], [address] Time Given 15:53:31 [facility] Comment on above: Performed By: #### L 9000.0800 ####[facility] [address] [place], [address] Vt 450.0 mL [facility] Comment on above: Performed By: #### L 9000.0800 ####[facility] [address] [place], [address] Base excess Calc (Bld) [Moles/Vol] 0 mmol/L Normal -2 to +2 [facility] Comment on above: Performed By: #### L 9000.0800 ####[facility] [address] [place], [address] Blood Gas Type ART [facility] Comment on above: Performed By: #### L 9000.0800 ####[facility] [address] [place], [address] CO2 [Moles/Vol] 31 mmol/L [facility] Comment on above: Performed By: #### L 9000.0800 ####[facility] [address] [place], [address] FI02 100.0 Normal [facility] Comment on above: Performed By: #### L 9000.0800 ####[facility] [address] [place], [address] HCO3 (Bld) [Moles/Vol] 28.9 mmol/L High 22-26 [facility] Comment on above: Performed By: #### L 9000.0800 ####[facility] [address] [place], [address] Mode BiLevel Normal [facility] Comment on above: Performed By: #### L 9000.0800 ####[facility] [address] [place], [address] O2 Delivery Dev BiPAP Normal [facility] Comment on above: Performed By: #### L 9000.0800 ####[facility] [address] [place], [address] pCO2 79.1 mmHg Invalid Interpretation Code 35-45 [facility] Comment on above: Performed By: #### L 9000.0800 ####[facility] [address] [place], [address] PEEP 10 Normal [facility] Comment on above: Performed By: #### L 9000.0800 ####[facility] [address] [place], [address] pH (Bld) 7.17 [pH] Invalid Interpretation Code 7.35-7.45 [facility] Comment on above: Performed By: #### L 9000.0800 ####[facility] [address] [place], [address] PO2 81 mmHG Normal 75-100 [facility] Comment on above: Performed By: #### L 0.0800 ####[facility] [address] [place], [address] Read Back By Yes [facility] Comment on above: Performed By: #### L 8999.0800 ####[facility] [address] [place], [address] Results To BROWN Normal [facility] Comment on above: Performed By: #### L 0.0800 ####[facility] [address] [place], [address] RR 16 Normal [facility] Comment on above: Performed By: #### L 0.0800 ####[facility] [address] [place], [address] SITE R Brach Normal [facility] Comment on above: Performed By: #### L 8999.0800 ####[facility] [address] [place], [address] SO2 92 Low 95-99 [facility] Comment on above: Performed By: #### L 8999.0800 ####[facility] [address] [place], [address] Time Given 10:48:00 [facility] Comment on above: Performed By: #### L 8999.0800 ####[facility] [address] [place], [address] Vt 450.0 mL Normal [facility] Comment on above: Performed By: #### L 0.0800 ####[facility] [address] [place], [address] SERGEI TEST Positive [facility] Comment on above: Performed By: #### L 0.0800 ####[facility] [address] [place], [address] Base excess Calc (Bld) [Moles/Vol] -3 mmol/L Low -2 to +2 [facility] Comment on above: Performed By: #### L 9000.0800 ####[facility] [address] [place], [address] Blood Gas Type ART Normal [facility] Comment on above: Performed By: #### L 9000.0800 ####[facility] [address] [place], [address] CO2 [Moles/Vol] 28 mmol/L Normal [facility] Comment on above: Performed By: #### L 9000.0800 ####[facility] [address] [place], [address] FI02 100.0 Normal [facility] Comment on above: Performed By: #### L 9000.0800 ####[facility] [address] [place], [address] HCO3 (Bld) [Moles/Vol] 26.1 mmol/L High 22-26 [facility] Comment on above: Performed By: #### L 9000.0800 ####[facility] [address] [place], [address] Mode avaps Normal [facility] Comment on above: Performed By: #### L 9000.0800 ####[facility] [address] [place], [address] O2 Delivery Dev BiPAP Normal [facility] Comment on above: Performed By: #### L 9000.0800 ####[facility] [address] [place], [address] pCO2 75.9 mmHg Invalid Interpretation Code 35-45 [facility] Comment on above: Performed By: #### L 9000.0800 ####[facility] [address] [place], [address] PEEP 10 Normal [facility] Comment on above: Performed By: #### L 9000.0800 ####[facility] [address] [place], [address] pH (Bld) 7.14 [pH] Invalid Interpretation Code 7.35-7.45 [facility] Comment on above: Performed By: #### L 9000.0800 ####[facility] [address] [place], [address] PO2 85 mmHG Normal 75-100 [facility] Comment on above: Performed By: #### L 9000.0800 ####[facility] [address] [place], [address] Read Back By Yes [facility] Comment on above: Performed By: #### L 9000.0800 ####[facility] [address] [place], [address] Results To de dustin Normal [facility] Comment on above: Performed By: #### L 9000.0800 ####[facility] [address] [place], [address] RR 16 Normal [facility] Comment on above: Performed By: #### L 9000.0800 ####[facility] [address] [place], [address] SITE R Radial Normal [facility] Comment on above: Performed By: #### L 9000.0800 ####[facility] [address] [place], [address] SO2 92 Low 95-99 [facility] Comment on above: Performed By: #### L 9000.0800 ####[facility] [address] [place], [address] Time Given 07:33:57 [facility] Comment on above: Performed By: #### L 9000.0800 ####[facility] [address] [place], [address] Vt 450.0 mL Normal [facility] Comment on above: Performed By: #### L 8999.0800 ####[facility] [address] [place], [address] SERGEI TEST N/A Normal [facility] Comment on above: Performed By: #### L 8999.0800 ####[facility] [address] [place], [address] Base excess Calc (Bld) [Moles/Vol] -3 mmol/L Low -2 to +2 [facility] Comment on above: Performed By: #### L 8999.0800 ####[facility] [address] [place], [address] Blood Gas Type ART Normal [facility] Comment on above: Performed By: #### L 8999.0800 ####[facility] [address] [place], [address] CO2 [Moles/Vol] 28 mmol/L Normal [facility] Comment on above: Performed By: #### L 8999.0800 ####[facility] [address] [place], [address] FI02 92.0 Normal [facility] Comment on above: Performed By: #### L 0.0800 ####[facility] [address] [place], [address] HCO3 (Bld) [Moles/Vol] 25.8 mmol/L Normal 22-26 [facility] Comment on above: Performed By: #### L 0.0800 ####[facility] [address] [place], [address] Mode 60L Normal [facility] Comment on above: Performed By: #### L 0.0800 ####[facility] [address] [place], [address] O2 Delivery Dev AIRVO Normal [facility] Comment on above: Performed By: #### L 9000.0800 ####[facility] [address] [place], [address] pCO2 71.3 mmHg Invalid Interpretation Code 35-45 [facility] Comment on above: Performed By: #### L 9000.0800 ####[facility] [address] [place], [address] pH (Bld) 7.17 [pH] Invalid Interpretation Code 7.35-7.45 [facility] Comment on above: Performed By: #### L 9000.0800 ####[facility] [address] [place], [address] PO2 67 mmHG Low 75-100 [facility] Comment on above: Performed By: #### L 9000.0800 ####[facility] [address] [place], [address] Read Back By Yes [facility] Comment on above: Performed By: #### L 0.0800 ####[facility] [address] [place], [address] oMnk [facility] Comment on above: Performed By: #### L 0.0800 ####[facility] [address] [place], [address] SITE R Brach Normal [facility] Comment on above: Performed By: #### L 9000.0800 ####[facility] [address] [place], [address] SO2 86 Low 95-99 [facility] Comment on above: Performed By: #### L 9000.0800 ####[facility] [address] [place], [address] Time Given 06:03:13 Normal [facility] Comment on above: Performed By: #### L 9000.0800 ####[facility] [address] [place], [address] Blood base excess determinat ionOrdered By: Sudhir Izquierdo on 03-15-2025 Base excess Calc (BldV) [Moles/Vol] 0 mmol/L -2-2 [facility] Blood bicarbonate measuremen tOrdered By: Sudhir Izquiredo on 03-15-2025 HCO3 (Bld) [Moles/Vol] 26.8 mmol/L High 22-26 [facility] CBC W/Diff, Automatedon 02-26 Absolute Lymph 1.20 X10 3/uL Normal 0.83-4.51 [facility] Comment on above: Performed By: #### L 500.4050, L100.0100 ####[facility] [address] [place], [address] Absolute Neut 17.4 X10 3/uL High 2.0-7.7 [facility] Comment on above: Performed By: #### L 500.4050, L100.0100 ####[facility] [address] [place], [address] Basophils/100 WBC (Bld) 0.4 % Normal 0-1 [facility] Comment on above: Performed By: #### L 500.4050, L100.0100 ####[facility] [address] [place], [address] Eosinophils/100 WBC (Bld) 0.3 % Normal 0-5 [facility] Comment on above: Performed By: #### L 500.4050, L100.0100 ####[facility] [address] [place], [address] Erythrocyte distribution width (RBC) [Ratio] 14.6 % Normal 11.6-14.6 [facility] Comment on above: Performed By: #### L 500.4050, L100.0100 ####[facility] [address] [place], [address] Hematocrit (Bld) [Volume fraction] 37.1 % Normal 37-47 [facility] Comment on above: Performed By: #### L 500.4050, L100.0100 ####[facility] [address] [place], [address] Hemoglobin (Bld) [Mass/Vol] 10.9 g/dL Low 12.0-15.0 [facility] Comment on above: Performed By: #### L 500.4050, L100.0100 ####[facility] [address] [place], [address] IG% 3.800 High 0.0-0.9 [facility] Comment on above: Result Comment: IG% - Immature Granulocytes (promyelocytes, myelocytes andmetamyelocytes) > 1% indicates that a LEFT SHIFT is Present. Performed By: #### L 500.4050, L100.0100 ####[facility] [address] [place], [address] Lymphocytes/100 WBC (Bld) 5.8 % Low 19-41 [facility] Comment on above: Performed By: #### L 500.4050, L100.0100 ####[facility] [address] [place], [address] MCH (RBC) [Entitic mass] 26.3 pg Low 27.0-32.0 [facility] Comment on above: Performed By: #### L 500.4050, L100.0100 ####[facility] [address] [place], [address] MCHC (RBC) [Mass/Vol] 29.4 g/dL Low 32-36 [facility] Comment on above: Performed By: #### L 500.4050, L100.0100 ####[facility] [address] [place], [address] MCV (RBC) [Entitic vol] 89.4 fL Normal 81-99 [facility] Comment on above: Performed By: #### L 500.4050, L100.0100 ####[facility] [address] [place], [address] Monocytes/100 WBC (Bld) 6.1 % Normal 0-10 [facility] Comment on above: Performed By: #### L 500.4050, L100.0100 ####[facility] [address] [place], [address] Neutrophils/100 WBC (Bld) 83.6 % High 47-70 [facility] Comment on above: Performed By: #### L 500.4050, L100.0100 ####[facility] [address] [place], [address] Nucleated RBC (Bld) [#/Vol] 0 10*3/uL Normal 0-5 [facility] Comment on above: Performed By: #### L 500.4050, L100.0100 ####[facility] [address] [place], [address] Platelet mean volume (Bld) [Entitic vol] 10.1 fL Normal 6.2-12.0 [facility] Comment on above: Performed By: #### L 500.4050, L100.0100 ####[facility] [address] [place], [address] Platelets (Bld) [#/Vol] 315 10*3/uL Normal 150-450 [facility] Comment on above: Performed By: #### L 500.4050, L100.0100 ####[facility] [address] [place], [address] RBC (Bld) [#/Vol] 4.15 10*6/uL Low 4.2-5.4 [facility] Comment on above: Performed By: #### L 500.4050, L100.0100 ####[facility] [address] [place], [address] RDW SD 48.1 fl High 35.1-43.9 [facility] Comment on above: Performed By: #### L 500.4050, L100.0100 ####[facility] [address] [place], [address] WBC (Bld) [#/Vol] 20.8 10*3/uL High 4.4-11.0 [facility] Comment on above: Performed By: #### L 500.4050, L100.0100 ####[facility] [address] [place], [address] CNCRITCRon 03-15-2025 CNCRITCR Critical Care Transp ort (CCT) -------- GRACIE BANUELOS Salvatore ([id number]) 1965 F Date Time Provider Department 03/15/25 MAKSIM ANDERSON CCT During your visit today, we recorded the following information about you: Maksim Anderson APRN.CNP 03/16/2025 7:05 AM Signed CRITICAL CARE TRANSPORT MEDICAL CONTROL CONSULT NOTE Patient Name: Gracie Banuelos Service Date: March 16, 2025 Referring Facility: [facility] Accepting Facility: [facility] REASON FOR TRANSPORT: Higher level intensive care services not available at the referring facility REASON FOR CONSULT: Hypotension and Sedation CCT MEDICAL CONTROL CONSULT SUMMARY: History, physical exam findings, and available background patient information from CCT Transport Nurse were reviewed at the time of consult. Pertinent additional information was reviewed as follows: [facility] transport request log In brief, Gracie Banuelos is a 59 year old female with a history, known at time of consult, significant for Smoking and COPD (5L N/C at home) who was admitted to [facility] for evaluation of Acute on Chronic Pancreatitis [...] HCO3 26.8. Patient is being transferred to [facility] for higher level intensive care services [...] confirmed and read back via telephone with [facility] Transport space studies faculty member, [employer], Power Plant Operator Apprentice SIGNATURE: Maksim Anderson APRN.[facility] Acute Care Nurse Practitioner Critical Care [...] Pressure Monitor (more content not included)... Normal [facility] CXR for Line Placementon CXR for Line Placement Normal [facility] Carbon dioxide, total [Moles /volume] in Central venous bloodOrdered By: Sudhir Izquierdo on 03-15-2025 CO2 [Moles/Vol] 22.5 mmol/L 21.0-32.0 [facility] Chest 1 View (Portable)on Chest 1 View (Portable) Normal [facility] Chloride assayOrdered By: Rosana Izquierdo on 03-15-2025 Chloride [Moles/Vol] 103 mmol/L 98-108 [facility] Comprehensive Metabolic Prof ilon 03-15-2025 Albumin [Mass/Vol] 3.5 g/dL Normal 3.4-4.8 [facility] Comment on above: Performed By: #### L 500.4050, L100.0100 ####[facility] [address] [place], [address] Albumin/Globulin [Mass ratio] 1.0 {ratio} Normal 0.9-2.4 [facility] Comment on above: Performed By: #### L 500.4050, L100.0100 ####[facility] [address] [place], [address] ALK PHOS 191 U/L High 35-104 [facility] Comment on above: Performed By: #### L 500.4050, L100.0100 ####[facility] [address] [place], [address] ALT [Catalytic activity/Vol] 24 U/L Normal <=34 [facility] Comment on above: Performed By: #### L 500.4050, L100.0100 ####[facility] [address] [place], [address] AST [Catalytic activity/Vol] 18 U/L Normal <=31 [facility] Comment on above: Performed By: #### L 500.4050, L100.0100 ####[facility] [address] [place], [address] Bilirubin [Mass/Vol] 0.24 mg/dL Normal 0.00-1.30 [facility] Comment on above: Performed By: #### L 500.4050, L100.0100 ####[facility] [address] [place], [address] BUN/CRE 15.6 RATIO Normal 10-20 [facility] Comment on above: Performed By: #### L 500.4050, L100.0100 ####[facility] [address] [place], [address] Calcium [Mass/Vol] 9.4 mg/dL Normal 7.6-11.0 [facility] Comment on above: Performed By: #### L 500.4050, L100.0100 ####[facility] [address] [place], [address] Chloride [Moles/Vol] 103 mmol/L Normal 98-108 [facility] Comment on above: Performed By: #### L 500.4050, L100.0100 ####[facility] [address] [place], [address] CO2 [Moles/Vol] 22.5 mmol/L Normal 21.0-32.0 [facility] Comment on above: Performed By: #### L 500.4050, L100.0100 ####[facility] [address] [place], [address] Creatinine [Mass/Vol] 0.73 mg/dL Normal 0.70-1.20 [facility] Comment on above: Performed By: #### L 500.4050, L100.0100 ####[facility] [address] [place], [address] ECRCL 72.87 ml/min Normal 50-250 [facility] Comment on above: Performed By: #### L 500.4050, L100.0100 ####[facility] [address] [place], [address] GAP 14 Normal 5-15 [facility] Comment on above: Performed By: #### L 500.4050, L100.0100 ####[facility] [address] [place], [address] GFR/1.73 sq M.predicted among non-blacks MDRD (S/P/Bld) [Vol rate/Area] 94 mL/min/{1.73_m2} Normal >60 [facility] Comment on above: Result Comment: mL/m in/1.73m2 CKD-EPI Creatinine Equation (2020) Performed By: #### L 500.4050, L100.0100 ####[facility] [address] [place], [address] Globulin (S) [Mass/Vol] 3.4 g/dL Normal 2.2-4.2 [facility] Comment on above: Performed By: #### L 500.4050, L100.0100 ####[facility] [address] [place], [address] Glucose [Mass/Vol] 83 mg/dL Normal 70-99 [facility] Comment on above: Performed By: #### L 500.4050, L100.0100 ####[facility] [address] [place], [address] Potassium [Moles/Vol] 4.4 mmol/L Normal 3.3-5.1 [facility] Comment on above: Performed By: #### L 500.4050, L100.0100 ####[facility] [address] [place], [address] Sodium [Moles/Vol] 140 mmol/L Normal 133-145 [facility] Comment on above: Performed By: #### L 500.4050, L100.0100 ####[facility] [address] [place], [address] T PROT 6.9 g/dL Normal 5.9-8.4 [facility] Comment on above: Performed By: #### L 500.4050, L100.0100 ####[facility] [address] [place], [address] Urea nitrogen [Mass/Vol] 11 mg/dL Normal 4-19 [facility] Comment on above: Performed By: #### L 500.4050, L100.0100 ####[facility] [address] [place], [address] Consultation - Intensiviston 03-15-2025 Consultation - Lactation Coordinator Normal [facility] Eosinophil percentageOrdered By: Sudhir Izquierdo on 03-15-2025 Eosinophils/100 WBC (Bld) 0.3 % 0-5 [facility] Erythrocyte distribution wid th ratioOrdered By: Sudhir Izquierdo on 03-15-2025 Erythrocyte distribution width (RBC) [Ratio] 14.6 % 11.6-14.6 [facility] Erythrocyte distribution wid th standard deviationOrdered By: Sudhir Izquierdo on 03-15-2025 Erythrocyte distribution width (RBC) [Ratio] 48.1 fl High 35.1-43.9 [facility] Glomerular filtration rate ( GFR) estimation/1.73 sq m using serum, plasma, or whole bOrdered By: Sudhir Izquierdo on 03-15-2025 GFR/1.73 sq M.predicted among non-blacks MDRD (S/P/Bld) [Vol rate/Area] 94 mL/min/{1.73_m2} >60 [facility] Gram stainOrdered By: Gonzalo Sebastian on 03-15-2025 Microscopic observation Gram stain Nom (Unsp spec) [facility] HISTORY PHYSICALon HISTORY PHYSICAL HNO ID: [id number] Author: CURT PAEZ APRN.CNP Service: Critical Care Author Type: Nurse Practitioner Type: H&P Filed: 03/16/2025 00:38 Note Text: [facility] PULMONARY AND CRITICAL CARE SERVICE DATE: March 15, 2025 SERVICE TIME: 8:49 PM Consulting Doctor: Dr. Ana Paula LOTT - [facility] CHIEF COMPLAINT: Acute on chronic hypoxic respiratory failure, severe sepsis HPI: This 59 year old female who came to [facility] today from [facility] for acute on chronic hypoxic respiratory failure requiring intubation and ventilator dependence. Patient has a history of alcoholic pancreatitis. 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 She was recently admitted to [facility] where she was seen by [...] nasal cannula at baseline. Patient went to [facility] on 03/13 for this epigastric pain. [...] scan. Given her recent stent placement at [facility], initiation of transfer made and was accepted. Unfortunately, no bed available at that time therefore patient admitted to [facility] for pain management and fluid resuscitation. While admitted, patient respiratory status continued to worsen. She required high flow nasal cannula and subsequently intubation while in their ICU. Per report, patient unable to be adequately oxygenated and more emergent transfer was sought out. Patient able to be transferred to regional [facility] therefore [facility] was contacted. Patient was discussed extensively with physician and ICU team here at [facility]. Patient ultimately accepted for transfer. Upon [...] started on vasopressin. Family en route to [facility]. Orders placed. PAST MEDICAL HISTORY: [...] Stage 3 severe COPD by GOLD classification ([facility]) 2018 Tobacco use greater than 30 years [...] History Toba (more content not included)... Normal [facility] Hematocrit Auto (Bld) [Volum e fraction]Ordered By: Sudhir Izquierdo on 03-15-2025 Hematocrit (Bld) [Volume fraction] 37.1 % 37-47 [facility] Hemoglobin measurementOrdere d By: Sudhir Izquierdo on 03-15-2025 Hemoglobin (Bld) [Mass/Vol] 10.9 g/dL Low 12.0-15.0 [facility] Immature granulocytes/100 WB C Auto (Bld)Ordered By: Sudhir Izquierdo on 03-15-2025 Immature granulocytes/100 WBC (Bld) 3.800 % High 0.0-0.9 [facility] L503.7505on 03-15-2025 Natriuretic peptide B (Bld) [Mass/Vol] 4257 pg/mL High <=900 [facility] Comment on above: Result Comment: Hear t Failure Unlikely: < 300 pg/mLHeart Failure Likely< 50 Years: > 450 pg/mL50-75 Years: > 900 pg/mL>75 Years: > 1800 pg/mL Performed By: #### L 503.7505 ####[facility] [address] [facility] [place], [place], [address] L509.7001on 03-15-2025 Procalcitonin 0.28 ng/mL High <=0.10 [facility] Comment on above: Result Comment: Inte rpretation:<0.10-0.25 ng/mL: Antibiotic therapy discouraged. Bacterialinfection unlikely.0.25-0.50 ng/mL: Antibiotic therapy encouraged. Bacterialinfection possible.>0.50 ng/mL: Antibiotic therapy strongly encouraged.Suggestive of presence of bacterial infection.PCT should always be interpreted in the clinical context ofthe patient. Therefore, clinicians should use the PCTresults in conjunction with other laboratory findings andclinical signs of the patient. Performed By: #### L 509.7001 ####[facility] [address] [facility] [place], [place], [address] MCV (mean corpuscular volume ) determinationOrdered By: Sudhir Izquierdo on 03-15-2025 MCV (RBC) [Entitic vol] 89.4 fL 81-99 [facility] Mean corpuscular hemoglobin (MCH) determinationOrdered By: Sudhir Izquierdo on 03-15-2025 MCH (RBC) [Entitic mass] 26.3 pg Low 27.0-32.0 [facility] Measurement, pHOrdered By: Nathalia Izquierdo on 03-15-2025 pH (Unsp spec) 7.26 [pH] Low 7.35-7.45 [facility] Microbial respiratory cultur eOrdered By: Gonzalo Sebastian on 03-15-2025 Microorganism identified Cx Nom (Unsp spec) Streptococcus pneumoniae Abnormal [facility] Microorganism identified Cx Nom (Unsp spec) Staphylococcus aureus Abnormal [facility] Monocyte percentageOrdered B y: Sudhir Izquierdo on 03-15-2025 Monocytes/100 WBC (Bld) 6.1 % 0-10 [facility] Natriuretic peptide.B prohor marium N-Terminal [Mass/volume] in Serum or PlasmaOrdered By: Jackson Chopra on 03-15-2025 Natriuretic peptide.B prohormone N-Terminal [Mass/Vol] 4257 pg/mL High <900 [facility] Neutrophil percentageOrdered By: Sudhir Izquierdo on 03-15-2025 Neutrophils/100 WBC (Bld) 83.6 % High 47-70 [facility] No Panel InformationOrdered By: Sudhir Izquierdo on 03-15-2025 ART [facility] R Radial [facility] AC [facility] ET Tube [facility] 450.0 mL [facility] 16 [facility] 12 [facility] 17:53:45 [facility] BROWN [facility] Yes [facility] 18 U/L <32 [facility] Platelet countOrdered By: Rosana Izquierdo on 03-15-2025 Platelets (Bld) [#/Vol] 315 10*3/uL 150-450 [facility] Potassium measurement (mass/ volume)Ordered By: Sudhir Izquierdo on 03-15-2025 Potassium (Unsp spec) [Mass/Vol] 4.4 mmol/L 3.3-5.1 [facility] Procalcitonin [Mass/volume] in Serum or Plasma by ImmunoassayOrdered By: Gonzalo Sebastian on 03-15-2025 Procalcitonin IA [Mass/Vol] 0.28 ng/mL High <0.11 [facility] RBC Auto (Bld) [#/Vol]Ordere d By: Sudhir Izquierdo on 03-15-2025 RBC (Bld) [#/Vol] 4.15 10*6/uL Low 4.2-5.4 [facility] Serum creatinine measurement (mass/volume)Ordered By: Sudhir Izquierdo on 03-15-2025 Creatinine [Mass/Vol] 0.73 mg/dL 0.70-1.20 [facility] Serum globulin measurementOr dered By: Sudhir Izquierdo on 03-15-2025 Globulin (S) [Mass/Vol] 3.4 g/dL 2.2-4.2 [facility] Serum glucose measurement (m ass/volume)Ordered By: Sudhir Izquierdo on 03-15-2025 Glucose [Mass/Vol] 83 mg/dL 70-99 [facility] Serum or plasma alanine pimentel otransferase (ALT) measurementOrdered By: Sudhir Izquierdo on 03-15-2025 ALT [Catalytic activity/Vol] 24 U/L <35 [facility] Serum or plasma albumin esthela urement (mass/volume)Ordered By: Sudhir Izquierdo on 03-15-2025 Albumin [Mass/Vol] 3.5 g/dL 3.4-4.8 [facility] Serum or plasma albumin/glob ulin mass ratioOrdered By: Sudhir Izquierdo on 03-15-2025 Albumin/Globulin [Mass ratio] 1.0 {ratio} 0.9-2.4 [facility] Serum or plasma alkaline jose sphatase measurementOrdered By: Sudhir Izquierdo on 03-15-2025 ALP [Catalytic activity/Vol] 191 U/L High 35-104 [facility] Serum or plasma calcium esthela urement (mass/volume)Ordered By: Sudhir Izquierdo on 03-15-2025 Calcium [Mass/Vol] 9.4 mg/dL 7.6-11.0 [facility] Serum or plasma urea nitroge n measurement (mass/volume)Ordered By: Sudhir Izquierdo on 03-15-2025 Urea nitrogen [Mass/Vol] 11 mg/dL 4-19 [facility] Sodium levelOrdered By: Sebastian Izquierdo on 03-15-2025 Sodium [Moles/Vol] 140 mmol/L 133-145 [facility] Total carbon dioxide measure mentOrdered By: Sudhir Izquierdo on 03-15-2025 CO2 [Moles/Vol] 29 mmol/L [facility] Total proteinOrdered By: Luis Izquierdo on 03-15-2025 Protein [Mass/Vol] 6.9 g/dL 5.9-8.4 [facility] Urine Cultureon 03-15-2025 URC Mixed Gram Positive Organisms Adel Count 80,000-100,000 MIXC Mixed contaminants. Submit a new specimen if indicated. Normal [facility] Comment on above: Performed By: #### M 100.2200 ####[facility] [address] [place], [address] White blood cell (WBC) count Ordered By: Sudhir Izquierdo on 03-15-2025 WBC (Bld) [#/Vol] 20.8 10*3/uL High 4.4-11.0 [facility] XR ABDOMEN 1V SUPINEon 03-15 XR ABDOMEN [...] Evaluate tube, line, or lead position (accession [id number]), Evaluate tube, line or lead position (accession [id number]) , establish chronic pancreatitis. MQ: XCPR_5 Comparison: [...] Bilateral pleural effusions with nonspecific retrocardiac opacity. 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 Transcribe Date/Time: Mar 16 2025 1:30A Dictated by : SUELLEN SÁNCHEZ MD This examination was interpreted and the report reviewed and electronically signed by: SUELLEN SÁNCHEZ MD on Mar 16 2025 1:33AM EST [id number] Normal [facility] XR CHEST 1V FRONTAL PORTon 0 [...] Evaluate tube, line, or lead position (accession [id number]), Evaluate tube, line or lead position (accession [id number]) , establish chronic pancreatitis. MQ: XCPR_5 Comparison: [...] Bilateral pleural effusions with nonspecific retrocardiac opacity. 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, [address] Absolute Neut 17.9 X10 3/uL High 2.0-7.7 [facility] Comment on above: Performed By: #### L 100.0100 ####[facility] [address] [place], [address] Basophils/100 WBC (Bld) 0.4 % Normal 0-1 [facility] Comment on above: Performed By: #### L 100.0100 ####[facility] [address] [place], [address] Eosinophils/100 WBC (Bld) 1.2 % Normal 0-5 [facility] Comment on above: Performed By: #### L 100.0100 ####[facility] [address] [place], [address] Erythrocyte distribution width (RBC) [Ratio] 14.8 % High 11.6-14.6 [facility] Comment on above: Performed By: #### L 100.0100 ####[facility] [address] [place], [address] Hematocrit (Bld) [Volume fraction] 33.5 % Low 37-47 [facility] Comment on above: Performed By: #### L 100.0100 ####[facility] [address] [place], [address] Hemoglobin (Bld) [Mass/Vol] 9.9 g/dL Low 12.0-15.0 [facility] Comment on above: Performed By: #### L 100.0100 ####[facility] [address] [place], [address] IG% 1.300 High 0.0-0.9 [facility] Comment on above: Result Comment: IG% - Immature Granulocytes (promyelocytes, myelocytes andmetamyelocytes) > 1% indicates that a LEFT SHIFT is Present. Performed By: #### L 100.0100 ####[facility] [address] [place], [address] Lymphocytes/100 WBC (Bld) 9.0 % Low 19-41 [facility] Comment on above: Performed By: #### L 100.0100 ####[facility] [address] [place], [address] MCH (RBC) [Entitic mass] 26.3 pg Low 27.0-32.0 [facility] Comment on above: Performed By: #### L 100.0100 ####[facility] [address] [place], [address] MCHC (RBC) [Mass/Vol] 29.6 g/dL Low 32-36 [facility] Comment on above: Performed By: #### L 100.0100 ####[facility] [address] [place], [address] MCV (RBC) [Entitic vol] 88.9 fL Normal 81-99 [facility] Comment on above: Performed By: #### L 100.0100 ####[facility] [address] [place], [address] Monocytes/100 WBC (Bld) 6.4 % Normal 0-10 [facility] Comment on above: Performed By: #### L 100.0100 ####[facility] [address] [place], [address] Neutrophils/100 WBC (Bld) 81.7 % High 47-70 [facility] Comment on above: Performed By: #### L 100.0100 ####[facility] [address] [place], [address] Nucleated RBC (Bld) [#/Vol] 0 10*3/uL Normal 0-5 [facility] Comment on above: Performed By: #### L 100.0100 ####[facility] [address] [place], [address] Platelet mean volume (Bld) [Entitic vol] 10.8 fL Normal 6.2-12.0 [facility] Comment on above: Performed By: #### L 100.0100 ####[facility] [address] [place], [address] Platelets (Bld) [#/Vol] 263 10*3/uL Normal 150-450 [facility] Comment on above: Performed By: #### L 100.0100 ####[facility] [address] [place], [address] RBC (Bld) [#/Vol] 3.77 10*6/uL Low 4.2-5.4 [facility] Comment on above: Performed By: #### L 100.0100 ####[facility] [address] [place], [address] RDW SD 48.7 fl High 35.1-43.9 [facility] Comment on above: Performed By: #### L 100.0100 ####[facility] [address] [place], [address] WBC (Bld) [#/Vol] 21.9 10*3/uL High 4.4-11.0 [facility] Comment on above: Performed By: #### L 100.0100 ####[facility] [address] [place], [address] Comprehensive Metabolic Prof ilon 03-14-2025 Albumin [Mass/Vol] 3.5 g/dL Normal 3.4-4.8 [facility] Comment on above: Performed By: #### L 501.2450, L500.4050 ####[facility] [address] [place], [address] Albumin/Globulin [Mass ratio] 1.1 {ratio} Normal 0.9-2.4 [facility] Comment on above: Performed By: #### L 501.2450, L500.4050 ####[facility] [address] [place], [address] ALK PHOS 188 U/L High 35-104 [facility] Comment on above: Performed By: #### L 501.2450, L500.4050 ####[facility] [address] [place], [address] ALT [Catalytic activity/Vol] 29 U/L Normal <=34 [facility] Comment on above: Performed By: #### L 501.2450, L500.4050 ####[facility] [address] [place], [address] AST [Catalytic activity/Vol] 22 U/L Normal <=31 [facility] Comment on above: Performed By: #### L 501.2450, L500.4050 ####[facility] [address] [place], [address] Bilirubin [Mass/Vol] 0.23 mg/dL Normal 0.00-1.30 [facility] Comment on above: Performed By: #### L 501.2450, L500.4050 ####[facility] [address] [place], [address] BUN/CRE 20.6 RATIO High 10-20 [facility] Comment on above: Performed By: #### L 501.2450, L500.4050 ####[facility] [address] [place], [address] Calcium [Mass/Vol] 9.1 mg/dL Normal 7.6-11.0 [facility] Comment on above: Performed By: #### L 501.2450, L500.4050 ####[facility] [address] [place], [address] Chloride [Moles/Vol] 101 mmol/L Normal 98-108 [facility] Comment on above: Performed By: #### L 501.2450, L500.4050 ####[facility] [address] [place], [address] CO2 [Moles/Vol] 24.2 mmol/L Normal 21.0-32.0 [facility] Comment on above: Performed By: #### L 501.2450, L500.4050 ####[facility] [address] [place], [address] Creatinine [Mass/Vol] 0.90 mg/dL Normal 0.70-1.20 [facility] Comment on above: Performed By: #### L 501.2450, L500.4050 ####[facility] [address] [place], [address] ECRCL 59.11 ml/min Normal 50-250 [facility] Comment on above: Performed By: #### L 501.2450, L500.4050 ####[facility] [address] [place], [address] GAP 15 Normal 5-15 [facility] Comment on above: Performed By: #### L 501.2450, L500.4050 ####[facility] [address] [place], [address] GFR/1.73 sq M.predicted among non-blacks MDRD (S/P/Bld) [Vol rate/Area] 73 mL/min/{1.73_m2} Normal >60 [facility] Comment on above: Result Comment: mL/m in/1.73m2 CKD-EPI Creatinine Equation (2020) Performed By: #### L 501.2450, L500.4050 ####[facility] [address] [place], [address] Globulin (S) [Mass/Vol] 3.1 g/dL Normal 2.2-4.2 [facility] Comment on above: Performed By: #### L 501.2450, L500.4050 ####[facility] [address] [place], [address] Glucose [Mass/Vol] 64 mg/dL Low 70-99 [facility] Comment on above: Performed By: #### L 501.2450, L500.4050 ####[facility] [address] [place], [address] Potassium [Moles/Vol] 4.1 mmol/L Normal 3.3-5.1 [facility] Comment on above: Performed By: #### L 501.2450, L500.4050 ####[facility] [address] [place], [address] Sodium [Moles/Vol] 140 mmol/L Normal 133-145 [facility] Comment on above: Performed By: #### L 501.2450, L500.4050 ####[facility] [address] [place], [address] T PROT 6.6 g/dL Normal 5.9-8.4 [facility] Comment on above: Performed By: #### L 501.2450, L500.4050 ####[facility] [address] [place], [address] Urea nitrogen [Mass/Vol] 19 mg/dL Normal 4-19 [facility] Comment on above: Performed By: #### L 501.2450, L500.4050 ####[facility] [address] [place], [address] Lipaseon 03-14-2025 Lipase [Catalytic activity/Vol] 362 U/L High 13-75 [facility] Comment on above: Result Comment: Jenny capellan note:LIPASE revised reference range effective 23.New Lipase methodology. Expected to produce lower valuesthan the previous assay method.NEW Reference Range: 13 - 75 U/L Performed By: #### L 501.2450, L500.4050 ####[facility] [address] [place], [address] Abdomen/Pelvis W IV Cont ONL Yon 03-13-2025 Abdomen/Pelvis W IV Cont ONLY Normal [facility] Absolute lymphocyte countOrd ered By: Macario Alex on 03-13-2025 Lymphocytes Auto (Unsp spec) [#/Vol] 1.85 10*3/uL 0.83-4.51 [facility] Alcohol, Blood (Medical)-Ser umon 03-13-2025 SERUM ETOH < 10.1 Normal <=10.0 [facility] Comment on above: Result Comment: This test is for medical purposes only. The legaldefinition of intoxication varies according to local law. Performed By: #### L 501.9100 ####[facility] [address] [place], [address] Anion gap in Serum or Plasma Ordered By: Macario Alex on 03-13-2025 Anion gap [Moles/Vol] 14 mmol/L 5-15 [facility] Automated lymphocyte count a s percentage of total leukocytesOrdered By: Macario Alex on 03-13-2025 Lymphocytes/100 WBC Auto (Unsp spec) 6.3 % Low 19-41 [facility] BUN/creatinine ratioOrdered By: Macario Alex on 03-13-2025 Urea nitrogen/Creatinine [Mass ratio] 16.9 mg/mg 07-17 [facility] Basic Metabolic Profile (BMP )on 03-13-2025 BUN/CRE 16.9 RATIO Normal 07-17 [facility] Comment on above: Performed By: #### L 501.2450, L500.3400, L500.2500 ####[facility] [address] [place], [address] Calcium [Mass/Vol] 9.5 mg/dL Normal 7.6-11.0 [facility] Comment on above: Performed By: #### L 501.2450, L500.3400, L500.2500 ####[facility] [address] [place], [address] Chloride [Moles/Vol] 92 mmol/L Low 98-108 [facility] Comment on above: Performed By: #### L 501.2450, L500.3400, L500.2500 ####[facility] [address] [place], [address] CO2 [Moles/Vol] 28.0 mmol/L Normal 21.0-32.0 [facility] Comment on above: Performed By: #### L 501.2450, L500.3400, L500.2500 ####[facility] [address] [place], [address] Creatinine [Mass/Vol] 0.84 mg/dL Normal 0.70-1.20 [facility] Comment on above: Performed By: #### L 501.2450, L500.3400, L500.2500 ####[facility] [address] [place], [address] ECRCL 58.18 ml/min Normal 50-250 [facility] Comment on above: Performed By: #### L 501.2450, L500.3400, L500.2500 ####[facility] [address] [place], [address] GAP 14 Normal 5-15 [facility] Comment on above: Performed By: #### L 501.2450, L500.3400, L500.2500 ####[facility] [address] [place], [address] GFR/1.73 sq M.predicted among non-blacks MDRD (S/P/Bld) [Vol rate/Area] 79 mL/min/{1.73_m2} Normal >60 [facility] Comment on above: Result Comment: mL/m in/1.73m2 CKD-EPI Creatinine Equation (2020) Performed By: #### L 501.2450, L500.3400, L500.2500 ####[facility] [address] [place], [address] Glucose [Mass/Vol] 100 mg/dL High 70-99 [facility] Comment on above: Performed By: #### L 501.2450, L500.3400, L500.2500 ####[facility] [address] [place], [address] Potassium [Moles/Vol] 3.6 mmol/L Normal 3.3-5.1 [facility] Comment on above: Performed By: #### L 501.2450, L500.3400, L500.2500 ####[facility] [address] [place], [address] Sodium [Moles/Vol] 134 mmol/L Normal 133-145 [facility] Comment on above: Performed By: #### L 501.2450, L500.3400, L500.2500 ####[facility] [address] [place], [address] Urea nitrogen [Mass/Vol] 14 mg/dL Normal 4-19 [facility] Comment on above: Performed By: #### L 501.2450, L500.3400, L500.2500 ####[facility] [address] [place], [address] Basophil percentageOrdered B y: Macario Alex on 03-13-2025 Basophils/100 WBC (Bld) 0.4 % 0-1 [facility] Bilirubin Test strip Ql (U)O rdered By: Macario Alex on 03-13-2025 Bilirubin Ql (U) Negative Negative [facility] Bilirubin directOrdered By: Macario Alex on 03-13-2025 Bilirubin.direct [Mass/Vol] 0.29 mg/dL 0.00-0.30 [facility] Bilirubin, totalOrdered By: Macario Alex on 03-13-2025 Bilirubin [Mass/Vol] 0.49 mg/dL 0.00-1.30 [facility] Blood manual differential co mment interpretation (narrative result)Ordered By: Macario Alex on 03-13-2025 Manual differential comment Geovany (Bld) [Interp] SCANNED [facility] CBC W/Diff, Automatedon 06 SMEAR COMMENT SCANNED Normal [facility] Comment on above: Result Comment: NEUT ROPHILIA NOTEDMONOCYTOSIS NOTED Performed By: #### L 503.6005, L100.0100 ####[facility] [address] [place], [address] Carbon dioxide, total [Moles /volume] in Central venous bloodOrdered By: Macario Alex on 03-13-2025 CO2 [Moles/Vol] 28.0 mmol/L 21.0-32.0 [facility] Chest PA and Lateralon 03-13 Chest PA and Lateral Normal [facility] Chloride assayOrdered By: David Alex on 03-13-2025 Chloride [Moles/Vol] 92 mmol/L Low 98-108 [facility] Emergency Department Summary on 03-13-2025 Emergency Department Summary Normal [facility] Eosinophil percentageOrdered By: Macario Alex on 03-13-2025 Eosinophils/100 WBC (Bld) 0.5 % 0-5 [facility] Erythrocyte distribution wid th ratioOrdered By: Macariodee Alex on 03-13-2025 Erythrocyte distribution width (RBC) [Ratio] 14.7 % High 11.6-14.6 [facility] Erythrocyte distribution wid th standard deviationOrdered By: [facility] Gosia on 03-13-2025 Erythrocyte distribution width (RBC) [Ratio] 46.1 fl High 35.1-43.9 [facility] Glomerular filtration rate ( GFR) estimation/1.73 sq m using serum, plasma, or whole bOrdered By: Macario Tab on 03-13-2025 GFR/1.73 sq M.predicted among non-blacks MDRD (S/P/Bld) [Vol rate/Area] 79 mL/min/{1.73_m2} >60 [facility] Hematocrit Auto (Bld) [Volum e fraction]Ordered By: Macariodee Alex on 03-13-2025 Hematocrit (Bld) [Volume fraction] 35.9 % Low 37-47 [facility] Hemoglobin measurementOrdere d By: [facility] on 03-13-2025 Hemoglobin (Bld) [Mass/Vol] 11.2 g/dL Low 12.0-15.0 [facility] Immature granulocytes/100 WB C Auto (Bld)Ordered By: [facility] on 03-13-2025 Immature granulocytes/100 WBC (Bld) 1.200 % High 0.0-0.9 [facility] Ketones Test strip Ql (U)Ord ered By: [facility] on 03-13-2025 Ketones Ql (U) Negative Negative [facility] Lactic Acidon 03-13-2025 Lactate [Moles/Vol] mmol/L Normal 0.0-2.0 [facility] Comment on above: Order Comment: Y Performed By: #### L 503.6005, L100.0100 ####[facility] [address] [place], [address] Lipaseon 03-13-2025 Lipase [Catalytic activity/Vol] 378 U/L High 13-75 [facility] Comment on above: Result Comment: Jenny capellan note:LIPASE revised reference range effective 23.New Lipase methodology. Expected to produce lower valuesthan the previous assay method.NEW Reference Range: 13 - 75 U/L Performed By: #### L 501.2450, L500.3400, L500.2500 ####[facility] [address] [place], [address] Liver Profileon 03-13-2025 Albumin [Mass/Vol] 3.8 g/dL Normal 3.4-4.8 [facility] Comment on above: Performed By: #### L 501.2450, L500.3400, L500.2500 ####[facility] [address] [place], [address] ALK PHOS 149 U/L High 35-104 [facility] Comment on above: Performed By: #### L 501.2450, L500.3400, L500.2500 ####[facility] [address] [place], [address] ALT [Catalytic activity/Vol] 38 U/L High <=34 [facility] Comment on above: Performed By: #### L 501.2450, L500.3400, L500.2500 ####[facility] [address] [place], [address] AST [Catalytic activity/Vol] 21 U/L Normal <=31 [facility] Comment on above: Performed By: #### L 501.2450, L500.3400, L500.2500 ####[facility] [address] [place], [address] Bilirubin [Mass/Vol] 0.49 mg/dL Normal 0.00-1.30 [facility] Comment on above: Performed By: #### L 501.2450, L500.3400, L500.2500 ####[facility] [address] [place], [address] Bilirubin.direct [Mass/Vol] 0.29 mg/dL Normal 0.00-0.30 [facility] Comment on above: Performed By: #### L 501.2450, L500.3400, L500.2500 ####[facility] [address] [place], [address] Globulin (S) [Mass/Vol] 3.2 g/dL Normal 2.2-4.2 [facility] Comment on above: Performed By: #### L 501.2450, L500.3400, L500.2500 ####[facility] [address] [place], [address] T PROT 7.0 g/dL Normal 5.9-8.4 [facility] Comment on above: Performed By: #### L 501.2450, L500.3400, L500.2500 ####[facility] [address] [place], [address] MCV (mean corpuscular volume ) determinationOrdered By: Macario Alex on 03-13-2025 MCV (RBC) [Entitic vol] 86.1 fL 81-99 [facility] Mean corpuscular hemoglobin (MCH) determinationOrdered By: Macario Alex on 03-13-2025 MCH (RBC) [Entitic mass] 26.9 pg Low 27.0-32.0 [facility] Monocyte percentageOrdered B y: Macario Alex on 03-13-2025 Monocytes/100 WBC (Bld) 8.1 % 0-10 [facility] Mucus LM Ql (Urine sed)Order ed By: Macario Alex on 03-13-2025 Mucus Ql (Urine sed) 0 SEEN /hpf [facility] Neutrophil percentageOrdered By: Macario Alex on 03-13-2025 Neutrophils/100 WBC (Bld) 83.5 % High 47-70 [facility] Nitrite Test strip Ql (U)Ord ered By: Macario Alex on 03-13-2025 Nitrite Ql (U) Negative Negative [facility] No Panel InformationOrdered By: Macario Alex on 03-13-2025 21 U/L <32 [facility] Platelet countOrdered By: David Alex on 03-13-2025 Platelets (Bld) [#/Vol] 277 10*3/uL 150-450 [facility] Potassium measurement (mass/ volume)Ordered By: Macario Alex on 03-13-2025 Potassium (Unsp spec) [Mass/Vol] 3.6 mmol/L 3.3-5.1 [facility] Protein Test strip Ql (U)Ord ered By: Macario Alex on 03-13-2025 Protein Ql (U) 30 mg/dl High Negative [facility] RBC Auto (Bld) [#/Vol]Ordere d By: Macario Alex on 03-13-2025 RBC (Bld) [#/Vol] 4.17 10*6/uL Low 4.2-5.4 [facility] Serum creatinine measurement (mass/volume)Ordered By: Macario Alex on 03-13-2025 Creatinine [Mass/Vol] 0.84 mg/dL 0.70-1.20 [facility] Serum globulin measurementOr dered By: Macario Alex on 03-13-2025 Globulin (S) [Mass/Vol] 3.2 g/dL 2.2-4.2 [facility] Serum glucose measurement (m ass/volume)Ordered By: Macario Alex on 03-13-2025 Glucose [Mass/Vol] 100 mg/dL High 70-99 [facility] Serum or plasma alanine pimentel otransferase (ALT) measurementOrdered By: Macario Alex on 03-13-2025 ALT [Catalytic activity/Vol] 38 U/L High <35 [facility] Serum or plasma albumin esthela urement (mass/volume)Ordered By: Macario Elise on 03-13-2025 Albumin [Mass/Vol] 3.8 g/dL 3.4-4.8 [facility] Serum or plasma alkaline jose sphatase measurementOrdered By: Macario Alex on 03-13-2025 ALP [Catalytic activity/Vol] 149 U/L High 35-104 [facility] Serum or plasma calcium esthela urement (mass/volume)Ordered By: Macario Elise on 03-13-2025 Calcium [Mass/Vol] 9.5 mg/dL 7.6-11.0 [facility] Serum or plasma ethanol esthela urement (mass/volume)Ordered By: Macario Elise on 03-13-2025 Ethanol [Mass/Vol] mg/dL <10.1 [facility] Serum or plasma urea nitroge n measurement (mass/volume)Ordered By: Macario Alex on 03-13-2025 Urea nitrogen [Mass/Vol] 14 mg/dL 4-19 [facility] Sodium levelOrdered By: Beto Alex on 03-13-2025 Sodium [Moles/Vol] 134 mmol/L 133-145 [facility] Squamous epithelial cells de tection in urine sediment by light microscopyOrdered By: Macario Alex on 03-13-2025 Epithelial cells.squamous LM Ql (Urine sed) 0-5 SEEN /hpf 5-10 [facility] Total proteinOrdered By: Gumaro Alex on 03-13-2025 Protein [Mass/Vol] 7.0 g/dL 5.9-8.4 [facility] Urinalysis, Completeon 03-13 EPI,SQUAMOUS 0-5 SEEN Normal 5-10 [facility] Comment on above: Order Comment: CLEAN CATCH Performed By: #### L 400.0001 ####[facility] [address] [place], [address] RBC 0-5 SEEN Normal 0-5 [facility] Comment on above: Order Comment: CLEAN CATCH Performed By: #### L 400.0001 ####[facility] [address] [place], [address] WBC 5-10 SEEN Normal 0-5 [facility] Comment on above: Order Comment: CLEAN CATCH Performed By: #### L 400.0001 ####[facility] [address] [place], [address] BACTERIA 0 SEEN Normal None Seen [facility] Comment on above: Order Comment: CLEAN CATCH Performed By: #### L 400.0001 ####[facility] [address] [place], [address] Mucus Ql (Urine sed) 0 SEEN Normal [facility] Comment on above: Order Comment: CLEAN CATCH Performed By: #### L 400.0001 ####[facility] [address] [place], [address] Urine clarityOrdered By: Gumaro Alex on 03-13-2025 Clarity (U) Clear Clear [facility] Urine color determinationOrd ered By: Macario Alex on 03-13-2025 Color (U) Straw Yellow [facility] Urine cultureOrdered By: Gumaro Alex on 03-13-2025 Bacteria identified Cx Nom (U) Positive Abnormal [facility] Urine glucose detectionOrder ed By: Macario Alex on 03-13-2025 Glucose Ql (U) Normal mg/dl Normal [facility] Urine leukocyte esterase det ection by dipstickOrdered By: Macario Alex on 03-13-2025 Leukocyte esterase Test strip Ql (U) 100 /ul High Negative [facility] Urine pHOrdered By: Macario Barth on 03-13-2025 pH (U) 7.0 [pH] 5.0 - 8.0 [facility] Urine sediment bacteria coun t by microscopy (number/high power field)Ordered By: Macario Alex on 03-13-2025 Bacteria LM.HPF (Urine sed) [#/Area] 0 /[HPF] None Seen [facility] Urine specific gravity measu rementOrdered By: Macario Abi on 03-13-2025 Specific gravity (U) [Rel density] 1.005 1.002-1.030 [facility] Urine urobilinogen measureme ntOrdered By: Macario Abi on 03-13-2025 Urobilinogen Ql (U) Normal mg/dl Normal [facility] White blood cell (WBC) count Ordered By: Macario Alex on 03-13-2025 WBC (Bld) [#/Vol] 29.2 10*3/uL High 4.4-11.0 [facility] White blood cell countOrdere d By: Macario Alex on 03-13-2025 White blood cell count 5-10 SEEN /hpf 0-5 [facility] ANES POSTPROC EVALon 025 ANES POSTPROC EVAL HNO ID: [id number] Author: JOSE MARIA CHAKRABORTY MD Service: ? Author Type: Anesthesiologist Type: Anesthesia Postprocedure Evaluation Filed: 03/10/2025 15:51 Note Text: POST ANESTHESIA EVALUATION NOTE : 1965 Procedure Summary Date: 03/10/25 Room / Location: Gastroenterology Anesthesia Start: 1359 Anesthesia Stop: Procedure: ERCP Diagnosis: Other chronic pancreatitis (HCC) Scheduled Providers: Jane Farrell MD; Jose Maria Chakraborty MD; Vanessa Perez APRN.IMAGING AIDE Responsible Provider: Jose Maria Chakraborty MD Anesthesia [...] March 10, 2025 TIME: 3:16 PM CSN: [id number] Normal [facility] ANES PRE-OPon 03-10-2025 ANES PRE-OP HNO ID: [id number] Author: JOSE MARIA CHAKRABORTY MD Service: ? Author Type: Anesthesiologist Type: Anesthesia Preprocedure Evaluation Filed: 03/10/2025 12:26 Note Text: ANESTHESIOLOGY DAY OF SURGERY NOTE : 1965 Procedure Information Date/Time: 03/10/25 1300 Scheduled providers: Jane Farrell MD; Jose Maria Chakraborty MD; Vanessa Perez APRN.IMAGING AIDE Procedure: ERCP Location: Gastroenterology Estimated body mass [...] and consent discussed: yes. Patient / Responsible Republican agrees to proceed: yes Patient / Surrogate [...] 48 areli (more content not included)... Normal [facility] ERCP Study observation Perla rivera 03-10-2025 [facility] Radiology Study observation (narrative) [facility] NURSING PROGon 03-10-2025 NURSING PROG HNO ID: [id number] Author: JANIS AC, RN Service: Gastroenterology Author Type: Registered Nurse Type: Nursing Progress Note Filed: 03/10/2025 17:07 Note Text: Dr Chakraborty anesthesia ok d patient to be discharged Three hot packs given to patient for right arm Normal [facility] NURSING PROG HNO ID: [id number] Author: JANIS AC RN Service: Gastroenterology Author Type: Registered Nurse Type: Nursing Progress Note Filed: 03/10/2025 16:51 Note Text: Patient states her arm where the infiltration occurred it is burning Patient informed to keep an eye on the infiltrated area so a blister does not form of it does go to the Emergency room Normal [facility] NURSING PROG HNO ID: [id number] Author: JANIS AC RN Service: Gastroenterology Author Type: Registered Nurse Type: Nursing Progress Note Filed: 03/10/2025 16:24 Note Text: Right AC IV infiltrated with 100cc IV Propofol large swollen red hard area Hot pack applied Patient crying stating arm hurts patient Gracie and sister Magui spoke to [employer] nurse nutrition manager [facility]. Pharmacy called, Zelda pharmacist notified unable to help. Called Drug information line spoke with Milan fallon monitor patient There is no information in regards to amount of time Propofol will take to infuse .Patient is awake alert oriented x3 Normal [facility] NURSING PROG HNO ID: [id number] Author: JANIS AC RN Service: Gastroenterology Author Type: Registered Nurse Type: Nursing Progress Note Filed: 03/10/2025 15:51 Note Text: Dr Chakraborty anesthesia notified patients blood pressure low 73/52 74/51 Albumin 25 grams given Patient awake alert oriented x3 skin warm and dry Normal [facility] NURSING PROG HNO ID: [id number] Author: JANIS AC RN Service: Gastroenterology Author [...] Electronically Signed By: Janis Ac RN Normal [facility] NURSING PROG HNO ID: [id number] Author: ADRIAN EDMOND RN Service: ? Author [...] Adrian Edmond RN In Department: GASTROENTEROLOGY Normal [facility] Matteo 03-07-2025 CNPN Telephone (GASTMN) -------- GRACIE BANUELOS ([id number]) 1965 F Date Time Provider Department 03/07/25 [facility] During your visit today, we recorded the following information about you: Isis Gil 03/07/2025 11:48 AM Signed She stated there was supposed to be a letter or some document to be faxed over to [facility] to help pay for her gas prior to her ERCP on 03/10/25 Email: [email or web address] Are we able to get that sent over for patient? Thank you Juan Mike LPN 03/07/2025 12:29 PM Signed Jane Farrell MD Department of Gastroenterology- Advanced Endoscopy [address] [place], [place] [id number] 03/07/2025 Pt. name: Gracie Banuelos 1965 MEDICAL Procedure This is to certify that Gracie Banuelos this is a letter to confirm that Gracie has a procedure at [facility] on 03/10 with an arrival time of 12pm. 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 Normal [facility] 03-06-2025 [facility] Telephone (GAPRA3) -------- GRACIE BANUELOS ([id number]) 1965 F Date Time Provider Department 03/06/25 [...] Date Reviewed: 01/13/2025 Reviewed by: Soila Easton APRN.COMPANY MARKER - Fully Assessed Reason for Visit: Patient Question [1477] Prescriptions as of 03/06/2025 - gabapentin (NEURONTIN) [...] stress female [N39.3] 11/24/2014 HPV test positive [[id number]] 11/24/2014 Alcohol dependence in remission (HCC) [F10.21] [...] Encounter Status:Closed by RA[facility] GRACIE BANUELOS ([id number]) 1965 F Date Time Provider Department 03/06/25 [...] Date Reviewed: 01/13/2025 Reviewed by: Soila Easton APRN.COMPANY MARKER - Fully Assessed Prescriptions as of 03/06/2025 [...] stress female [N39.3] 11/24/2014 HPV test positive [[id number]] 11/24/2014 Alcohol dependence in remission (HCC) [F10.21] [...] Status:Closed by CAITLIN OBRIEN [facility]06/[facility] GRACIE BANUELOS ([id number]) 1965 F Date Time Provider Department 03/06/25 [facility] During your visit today, we recorded the following information about you: JefferyIsis 03/06/2025 9:10 AM Signed Gracie calling #[phone] Patient is calling regarding wanting to speak [...] alcohol addiction Date Reviewed: 01/13/2025 Reviewed by: Older, Soila, SALES MARKETING.COMPANY MARKER - Fully Assessed Reason for Visit: Patient Question [0386] Cmt: Questions Prior to ERCP Prescriptions as [...] stress female [N39.3] 11/24/2014 HPV test positive [[id number]] 11/24/2014 Alcohol dependence in remission (HCC) [F10.21] [...] of co (more content not included)... Normal [facility] NURSING PROGon 03-03-2025 NURSING PROG HNO ID: [id number] Author: JAELYN KOTHARI RN Service: ? Author Type: Registered Nurse Type: Nursing Progress Note Filed: 03/03/2025 09:48 Note Text: Attempted to reach the patient at the contact number that they provided [phone] (home) . Unable to speak with patient so without identifying the patient the following information was left on their voice mail: Date of procedure, location and report time A message was left informing the patient/patient service representative they must have a responsible [...] Number to call with questions or concerns [phone] Number to call to cancel their procedure [phone] Jaelyn Kothari RN Normal [facility] Abdomen/Pelvis W IV Cont ONL Yon 02-26-2025 Abdomen/Pelvis W IV Cont ONLY Normal [facility] Absolute lymphocyte countOrd ered By: Katina Price on 02-26-2025 Lymphocytes Auto (Unsp spec) [#/Vol] 2.50 10*3/uL 0.83-4.51 [facility] Anion gap in Serum or Plasma Ordered By: Katina Price on 02-26-2025 Anion gap [Moles/Vol] 11 mmol/L 5-15 [facility] Automated lymphocyte count a s percentage of total leukocytesOrdered By: Katina Price on 02-26-2025 Lymphocytes/100 WBC Auto (Unsp spec) 20.2 % 19-41 [facility] BUN/creatinine ratioOrdered By: Katina Price on 02-26-2025 Urea nitrogen/Creatinine [Mass ratio] 7.6 mg/mg Low 10-20 [facility] Basophil percentageOrdered B y: Katina Price on 02-26-2025 Basophils/100 WBC (Bld) 1.0 % 0-1 [facility] Bilirubin, totalOrdered By: Katina Price on 02-26-2025 Bilirubin [Mass/Vol] mg/dL 0.00-1.30 [facility] CBC W/Diff, Automatedon Absolute Lymph 2.50 X10 3/uL Normal 0.83-4.51 [facility] Comment on above: Performed By: #### L 501.2450, L100.0100, L500.4050 ####[facility] [address] [place], [address] Absolute Neut 7.9 X10 3/uL High 2.0-7.7 [facility] Comment on above: Performed By: #### L 501.2450, L100.0100, L500.4050 ####[facility] [address] [place], [address] Basophils/100 WBC (Bld) 1.0 % Normal 0-1 [facility] Comment on above: Performed By: #### L 501.2450, L100.0100, L500.4050 ####[facility] [address] [place], [address] Eosinophils/100 WBC (Bld) 6.1 % High 0-5 [facility] Comment on above: Performed By: #### L 501.2450, L100.0100, L500.4050 ####[facility] [address] [place], [address] Erythrocyte distribution width (RBC) [Ratio] 14.6 % Normal 11.6-14.6 [facility] Comment on above: Performed By: #### L 501.2450, L100.0100, L500.4050 ####[facility] [address] [place], [address] Hematocrit (Bld) [Volume fraction] 39.8 % Normal 37-47 [facility] Comment on above: Performed By: #### L 501.2450, L100.0100, L500.4050 ####[facility] [address] [place], [address] Hemoglobin (Bld) [Mass/Vol] 12.1 g/dL Normal 12.0-15.0 [facility] Comment on above: Performed By: #### L 501.2450, L100.0100, L500.4050 ####[facility] [address] [place], [address] IG% 0.900 Normal 0.0-0.9 [facility] Comment on above: Result Comment: IG% - Immature Granulocytes (promyelocytes, myelocytes andmetamyelocytes) > 1% indicates that a LEFT SHIFT is Present. Performed By: #### L 501.2450, L100.0100, L500.4050 ####[facility] [address] [place], [address] Lymphocytes/100 WBC (Bld) 20.2 % Normal 19-41 [facility] Comment on above: Performed By: #### L 501.2450, L100.0100, L500.4050 ####[facility] [address] [place], [address] MCH (RBC) [Entitic mass] 26.8 pg Low 27.0-32.0 [facility] Comment on above: Performed By: #### L 501.2450, L100.0100, L500.4050 ####[facility] [address] [place], [address] MCHC (RBC) [Mass/Vol] 30.4 g/dL Low 32-36 [facility] Comment on above: Performed By: #### L 501.2450, L100.0100, L500.4050 ####[facility] [address] [place], [address] MCV (RBC) [Entitic vol] 88.2 fL Normal 81-99 [facility] Comment on above: Performed By: #### L 501.2450, L100.0100, L500.4050 ####[facility] [address] [place], [address] Monocytes/100 WBC (Bld) 8.2 % Normal 0-10 [facility] Comment on above: Performed By: #### L 501.2450, L100.0100, L500.4050 ####[facility] [address] [place], [address] Neutrophils/100 WBC (Bld) 63.6 % Normal 47-70 [facility] Comment on above: Performed By: #### L 501.2450, L100.0100, L500.4050 ####[facility] [address] [place], [address] Nucleated RBC (Bld) [#/Vol] 0 10*3/uL Normal 0-5 [facility] Comment on above: Performed By: #### L 501.2450, L100.0100, L500.4050 ####[facility] [address] [place], [address] Platelet mean volume (Bld) [Entitic vol] 10.6 fL Normal 6.2-12.0 [facility] Comment on above: Performed By: #### L 501.2450, L100.0100, L500.4050 ####[facility] [address] [place], [address] Platelets (Bld) [#/Vol] 293 10*3/uL Normal 150-450 [facility] Comment on above: Performed By: #### L 501.2450, L100.0100, L500.4050 ####[facility] [address] [place], [address] RBC (Bld) [#/Vol] 4.51 10*6/uL Normal 4.2-5.4 [facility] Comment on above: Performed By: #### L 501.2450, L100.0100, L500.4050 ####[facility] [address] [place], [address] RDW SD 46.9 fl High 35.1-43.9 [facility] Comment on above: Performed By: #### L 501.2450, L100.0100, L500.4050 ####[facility] [address] [place], [address] WBC (Bld) [#/Vol] 12.4 10*3/uL High 4.4-11.0 [facility] Comment on above: Performed By: #### L 501.2450, L100.0100, L500.4050 ####[facility] [address] [place], [address] Carbon dioxide, total [Moles /volume] in Central venous bloodOrdered By: Katina Price on 02-26-2025 CO2 [Moles/Vol] 30.6 mmol/L 21.0-32.0 [facility] Chloride assayOrdered By: Afia Price on 02-26-2025 Chloride [Moles/Vol] 99 mmol/L 98-108 [facility] Comprehensive Metabolic Prof ilon 02-26-2025 Albumin [Mass/Vol] 4.1 g/dL Normal 3.4-4.8 [facility] Comment on above: Performed By: #### L 501.2450, L100.0100, L500.4050 ####[facility] [address] [place], [address] Albumin/Globulin [Mass ratio] 1.3 {ratio} Normal 0.9-2.4 [facility] Comment on above: Performed By: #### L 501.2450, L100.0100, L500.4050 ####[facility] [address] [place], [address] ALK PHOS 113 U/L High 35-104 [facility] Comment on above: Performed By: #### L 501.2450, L100.0100, L500.4050 ####[facility] [address] [place], [address] ALT [Catalytic activity/Vol] 10 U/L Normal <=34 [facility] Comment on above: Performed By: #### L 501.2450, L100.0100, L500.4050 ####[facility] [address] [place], [address] AST [Catalytic activity/Vol] 17 U/L Normal <=31 [facility] Comment on above: Performed By: #### L 501.2450, L100.0100, L500.4050 ####[facility] [address] [place], [address] BUN/CRE 7.6 RATIO Low 10-20 [facility] Comment on above: Performed By: #### L 501.2450, L100.0100, L500.4050 ####[facility] [address] [place], [address] Calcium [Mass/Vol] 9.5 mg/dL Normal 7.6-11.0 [facility] Comment on above: Performed By: #### L 501.2450, L100.0100, L500.4050 ####[facility] [address] [place], [address] Chloride [Moles/Vol] 99 mmol/L Normal 98-108 [facility] Comment on above: Performed By: #### L 501.2450, L100.0100, L500.4050 ####[facility] [address] [place], [address] CO2 [Moles/Vol] 30.6 mmol/L Normal 21.0-32.0 [facility] Comment on above: Performed By: #### L 501.2450, L100.0100, L500.4050 ####[facility] [address] [place], [address] Creatinine [Mass/Vol] 0.82 mg/dL Normal 0.70-1.20 [facility] Comment on above: Performed By: #### L 501.2450, L100.0100, L500.4050 ####[facility] [address] [place], [address] ECRCL 59.60 ml/min Normal 50-250 [facility] Comment on above: Performed By: #### L 501.2450, L100.0100, L500.4050 ####[facility] [address] [place], [address] GAP 11 Normal 5-15 [facility] Comment on above: Performed By: #### L 501.2450, L100.0100, L500.4050 ####[facility] [address] [place], [address] GFR/1.73 sq M.predicted among non-blacks MDRD (S/P/Bld) [Vol rate/Area] 81 mL/min/{1.73_m2} Normal >60 [facility] Comment on above: Result Comment: mL/m in/1.73m2 CKD-EPI Creatinine Equation (2020) Performed By: #### L 501.2450, L100.0100, L500.4050 ####[facility] [address] [place], [address] Globulin (S) [Mass/Vol] 3.1 g/dL Normal 2.2-4.2 [facility] Comment on above: Performed By: #### L 501.2450, L100.0100, L500.4050 ####[facility] [address] [place], [address] Glucose [Mass/Vol] 83 mg/dL Normal 70-99 [facility] Comment on above: Performed By: #### L 501.2450, L100.0100, L500.4050 ####[facility] [address] [place], [address] Potassium [Moles/Vol] 4.1 mmol/L Normal 3.3-5.1 [facility] Comment on above: Performed By: #### L 501.2450, L100.0100, L500.4050 ####[facility] [address] [place], [address] Sodium [Moles/Vol] 140 mmol/L Normal 133-145 [facility] Comment on above: Performed By: #### L 501.2450, L100.0100, L500.4050 ####[facility] [address] [place], [address] T BILI < 0.15 Normal 0.00-1.30 [facility] Comment on above: Performed By: #### L 501.2450, L100.0100, L500.4050 ####[facility] [address] [place], [address] T PROT 7.2 g/dL Normal 5.9-8.4 [facility] Comment on above: Performed By: #### L 501.2450, L100.0100, L500.4050 ####[facility] [address] [place], [address] Urea nitrogen [Mass/Vol] 6 mg/dL Normal 4-19 [facility] Comment on above: Performed By: #### L 501.2450, L100.0100, L500.4050 ####[facility] [address] [place], [address] Emergency Department Summary on 02-26-2025 Emergency Department Summary Normal [facility] Eosinophil percentageOrdered By: Katina Price on 02-26-2025 Eosinophils/100 WBC (Bld) 6.1 % High 0-5 [facility] Erythrocyte distribution wid th ratioOrdered By: Katina Price on 02-26-2025 Erythrocyte distribution width (RBC) [Ratio] 14.6 % 11.6-14.6 [facility] Erythrocyte distribution wid th standard deviationOrdered By: Katina Price on 02-26-2025 Erythrocyte distribution width (RBC) [Ratio] 46.9 fl High 35.1-43.9 [facility] Glomerular filtration rate ( GFR) estimation/1.73 sq m using serum, plasma, or whole bOrdered By: Katina Price on 02-26-2025 GFR/1.73 sq M.predicted among non-blacks MDRD (S/P/Bld) [Vol rate/Area] 81 mL/min/{1.73_m2} >60 [facility] Hematocrit Auto (Bld) [Volum e fraction]Ordered By: Katina Price on 02-26-2025 Hematocrit (Bld) [Volume fraction] 39.8 % 37-47 [facility] Hemoglobin measurementOrdere d By: Katina Price on 02-26-2025 Hemoglobin (Bld) [Mass/Vol] 12.1 g/dL 12.0-15.0 [facility] Immature granulocytes/100 WB C Auto (Bld)Ordered By: Katina Price on 02-26-2025 Immature granulocytes/100 WBC (Bld) 0.900 % 0.0-0.9 [facility] Lipaseon 02-26-2025 Lipase [Catalytic activity/Vol] 45 U/L Normal 13-75 [facility] Comment on above: Result Comment: Jenny capellan note:LIPASE revised reference range effective 23.New Lipase methodology. Expected to produce lower valuesthan the previous assay method.NEW Reference Range: 13 - 75 U/L Performed By: #### L 501.2450, L100.0100, L500.4050 ####[facility] [address] [place], [address] MCV (mean corpuscular volume ) determinationOrdered By: Katina Price on 02-26-2025 MCV (RBC) [Entitic vol] 88.2 fL 81-99 [facility] Mean corpuscular hemoglobin (MCH) determinationOrdered By: Katina Price on 02-26-2025 MCH (RBC) [Entitic mass] 26.8 pg Low 27.0-32.0 [facility] Monocyte percentageOrdered B y: Katina Price on 02-26-2025 Monocytes/100 WBC (Bld) 8.2 % 0-10 [facility] Neutrophil percentageOrdered By: Katina Price on 02-26-2025 Neutrophils/100 WBC (Bld) 63.6 % 47-70 [facility] No Panel InformationOrdered By: Katina Price on 02-26-2025 17 U/L <32 [facility] Platelet countOrdered By: Afia Price on 02-26-2025 Platelets (Bld) [#/Vol] 293 10*3/uL 150-450 [facility] Potassium measurement (mass/ volume)Ordered By: Katina Price on 02-26-2025 Potassium (Unsp spec) [Mass/Vol] 4.1 mmol/L 3.3-5.1 [facility] RBC Auto (Bld) [#/Vol]Ordere d By: Katina Price on 02-26-2025 RBC (Bld) [#/Vol] 4.51 10*6/uL 4.2-5.4 [facility] Serum creatinine measurement (mass/volume)Ordered By: Katina Price on 02-26-2025 Creatinine [Mass/Vol] 0.82 mg/dL 0.70-1.20 [facility] Serum globulin measurementOr dered By: Katina Price on 02-26-2025 Globulin (S) [Mass/Vol] 3.1 g/dL 2.2-4.2 [facility] Serum glucose measurement (m ass/volume)Ordered By: Katina Price on 02-26-2025 Glucose [Mass/Vol] 83 mg/dL 70-99 [facility] Serum or plasma alanine pimentel otransferase (ALT) measurementOrdered By: Katina Price on 02-26-2025 ALT [Catalytic activity/Vol] 10 U/L <35 [facility] Serum or plasma albumin esthela urement (mass/volume)Ordered By: Katina Price on 02-26-2025 Albumin [Mass/Vol] 4.1 g/dL 3.4-4.8 [facility] Serum or plasma albumin/glob ulin mass ratioOrdered By: Katina Price on 02-26-2025 Albumin/Globulin [Mass ratio] 1.3 {ratio} 0.9-2.4 [facility] Serum or plasma alkaline jose sphatase measurementOrdered By: Katina Price on 02-26-2025 ALP [Catalytic activity/Vol] 113 U/L High 35-104 [facility] Serum or plasma calcium esthela urement (mass/volume)Ordered By: Katina Price on 02-26-2025 Calcium [Mass/Vol] 9.5 mg/dL 7.6-11.0 [facility] Serum or plasma urea nitroge n measurement (mass/volume)Ordered By: Katina Price on 02-26-2025 Urea nitrogen [Mass/Vol] 6 mg/dL 4-19 [facility] Sodium levelOrdered By: Katina Price on 02-26-2025 Sodium [Moles/Vol] 140 mmol/L 133-145 [facility] Total proteinOrdered By: Valeria Price on 02-26-2025 Protein [Mass/Vol] 7.2 g/dL 5.9-8.4 [facility] White blood cell (WBC) count Ordered By: Katina Price on 02-26-2025 WBC (Bld) [#/Vol] 12.4 10*3/uL High 4.4-11.0 [facility] Pulmonary Visit Reporton Pulmonary Visit Report Normal [facility] 12 Lead EKGon 01-27-2025 12 Lead EKG Normal [facility] Absolute lymphocyte countOrd ered By: Franco Inman on 01-27-2025 Lymphocytes Auto (Unsp spec) [#/Vol] 2.62 10*3/uL 0.83-4.51 [facility] Anion gap in Serum or Plasma Ordered By: Franco Inman on 01-27-2025 Anion gap [Moles/Vol] 11 mmol/L 5-15 [facility] Automated blood erythrocyte countOrdered By: Franco Inman on 01-27-2025 RBC (Bld) [#/Vol] 4.32 10*6/uL Normal 4.2-5.4 [facility] Comment on above: Performed By: #### L 100.0100 ####[facility] [address] [place], [place], [address] Automated blood hematocrit ( percentage)Ordered By: Franco Inman on 01-27-2025 Hematocrit (Bld) [Volume fraction] 37.5 % Normal 37-47 [facility] Comment on above: Performed By: #### L 100.0100 ####[facility] [address] [place], [place], [address] Automated lymphocyte count a s percentage of total leukocytesOrdered By: Franco Inman on 01-27-2025 Lymphocytes/100 WBC Auto (Unsp spec) 16.8 % Low 19-41 [facility] BUN/creatinine ratioOrdered By: Franco Inman on 01-27-2025 Urea nitrogen/Creatinine [Mass ratio] 7.1 mg/mg Low 10-20 [facility] Basophil percentageOrdered B y: Franco Inman on 01-27-2025 Basophils/100 WBC (Bld) 1.0 % Normal 0-1 [facility] Comment on above: Performed By: #### L 100.0100 ####[facility] [address] [place], [place], [address] Bilirubin, totalOrdered By: Franco Inman on 01-27-2025 Bilirubin [Mass/Vol] mg/dL 0.00-1.30 [facility] CBC W/Diff, Automatedon Absolute Lymph 2.62 X10 3/uL Normal 0.83-4.51 [facility] Comment on above: Performed By: #### L 100.0100 ####[facility] [address] [place], [address] Absolute Neut 11.0 X10 3/uL High 2.0-7.7 [facility] Comment on above: Performed By: #### L 100.0100 ####[facility] [address] [place], [address] IG% 0.800 Normal 0.0-0.9 [facility] Comment on above: Result Comment: IG% - Immature Granulocytes (promyelocytes, myelocytes andmetamyelocytes) > 1% indicates that a LEFT SHIFT is Present. Performed By: #### L 100.0100 ####[facility] [address] [place], [address] Lymphocytes/100 WBC (Bld) 16.8 % Low 19-41 [facility] Comment on above: Performed By: #### L 100.0100 ####[facility] [address] [place], [address] MCHC (RBC) [Mass/Vol] 30.7 g/dL Low 32-36 [facility] Comment on above: Performed By: #### L 100.0100 ####[facility] [address] [place], [address] Nucleated RBC (Bld) [#/Vol] 0 10*3/uL Normal 0-5 [facility] Comment on above: Performed By: #### L 100.0100 ####[facility] [address] [place], [address] Platelet mean volume (Bld) [Entitic vol] 9.8 fL Normal 6.2-12.0 [facility] Comment on above: Performed By: #### L 100.0100 ####[facility] [address] [place], [address] RDW SD 46.0 fl High 35.1-43.9 [facility] Comment on above: Performed By: #### L 100.0100 ####[facility] [address] [place], [address] Carbon dioxide, total [Moles /volume] in Central venous bloodOrdered By: Franco Inman on 01-27-2025 CO2 [Moles/Vol] 27.5 mmol/L Normal 21.0-32.0 [facility] Comment on above: Performed By: #### L 500.4050, L501.2450 ####[facility] [address] [place], [address] Chest PA and Lateralon 01-27 Chest PA and Lateral Normal [facility] Chloride assayOrdered By: Leo Inman on 01-27-2025 Chloride [Moles/Vol] 98 mmol/L Normal 98-108 [facility] Comment on above: Performed By: #### L 500.4050, L501.2450 ####[facility] [address] [place], [address] Comprehensive Metabolic Prof ilon 01-27-2025 ALK PHOS 108 U/L High 35-104 [facility] Comment on above: Performed By: #### L 500.4050, L501.2450 ####[facility] [address] [place], [address] AST [Catalytic activity/Vol] 19 U/L Normal <=31 [facility] Comment on above: Performed By: #### L 500.4050, L501.2450 ####[facility] [address] [place], [address] BUN/CRE 7.1 RATIO Low 10-20 [facility] Comment on above: Performed By: #### L 500.4050, L501.2450 ####[facility] [address] [place], [address] ECRCL 65.16 ml/min Normal 50-250 [facility] Comment on above: Performed By: #### L 500.4050, L501.2450 ####[facility] [address] [place], [address] GAP 11 Normal 5-15 [facility] Comment on above: Performed By: #### L 500.4050, L501.2450 ####[facility] [address] [place], [address] Potassium [Moles/Vol] 4.3 mmol/L Normal 3.3-5.1 [facility] Comment on above: Performed By: #### L 500.4050, L501.2450 ####[facility] [address] [place], [address] T BILI < 0.15 Normal 0.00-1.30 [facility] Comment on above: Performed By: #### L 500.4050, L501.2450 ####[facility] [address] [place], [address] T PROT 7.1 g/dL Normal 5.9-8.4 [facility] Comment on above: Performed By: #### L 500.4050, L501.2450 ####[facility] [address] [place], [address] Emergency Department Summary on 01-27-2025 Emergency Department Summary Normal [facility] Eosinophil percentageOrdered By: Franco Inman on 01-27-2025 Eosinophils/100 WBC (Bld) 5.3 % High 0-5 [facility] Comment on above: Performed By: #### L 100.0100 ####[facility] [address] [place], [address] Erythrocyte distribution wid th ratioOrdered By: Franco Inman on 01-27-2025 Erythrocyte distribution width (RBC) [Ratio] 14.5 % Normal 11.6-14.6 [facility] Comment on above: Performed By: #### L 100.0100 ####[facility] [address] [place], [address] Erythrocyte distribution wid th standard deviationOrdered By: Franco Inman on 01-27-2025 Erythrocyte distribution width (RBC) [Ratio] 46.0 fl High 35.1-43.9 [facility] Glomerular filtration rate ( GFR) estimation/1.73 sq m using serum, plasma, or whole bOrdered By: Franco Inman on 01-27-2025 GFR/1.73 sq M.predicted among non-blacks MDRD (S/P/Bld) [Vol rate/Area] 90 mL/min/{1.73_m2} Normal >60 [facility] Comment on above: Result Comment: mL/m in/1.73m2 CKD-EPI Creatinine Equation (2020) Performed By: #### L 500.4050, L501.2450 ####[facility] [address] [facility] [place], [address] Hemoglobin measurementOrdere d By: Franco Inman on 01-27-2025 Hemoglobin (Bld) [Mass/Vol] 11.5 g/dL Low 12.0-15.0 [facility] Comment on above: Performed By: #### L 100.0100 ####[facility] [address] [place], [address] Immature granulocytes/100 WB C Auto (Bld)Ordered By: Franco Inman on 01-27-2025 Immature granulocytes/100 WBC (Bld) 0.800 % 0.0-0.9 [facility] Lipaseon 01-27-2025 Lipase [Catalytic activity/Vol] 32 U/L Normal 13-75 [facility] Comment on above: Result Comment: Plea se note:LIPASE revised reference range effective 23.New Lipase methodology. Expected to produce lower valuesthan the previous assay method.NEW Reference Range: 13 - 75 U/L Performed By: #### L 500.4050, L501.2450 ####[facility] [address] [place], [address] MCV (mean corpuscular volume ) determinationOrdered By: Franco Inman on 01-27-2025 MCV (RBC) [Entitic vol] 86.8 fL Normal 81-99 [facility] Comment on above: Performed By: #### L 100.0100 ####[facility] [address] [place], [place], [id number] Mean corpuscular hemoglobin (MCH) determinationOrdered By: Franco Inman on 01-27-2025 MCH (RBC) [Entitic mass] 26.6 pg Low 27.0-32.0 [facility] Comment on above: Performed By: #### L 100.0100 ####[facility] [address] [place], [address] Monocyte percentageOrdered B y: Franco Inman on 01-27-2025 Monocytes/100 WBC (Bld) 5.9 % Normal 0-10 [facility] Comment on above: Performed By: #### L 100.0100 ####[facility] [address] [place], [address] Neutrophil percentageOrdered By: Franco Inman on 01-27-2025 Neutrophils/100 WBC (Bld) 70.2 % High 47-70 [facility] Comment on above: Performed By: #### L 100.0100 ####[facility] [address] [place], [address] No Panel InformationOrdered By: Franco Inman on 01-27-2025 19 U/L <32 [facility] Platelet countOrdered By: Leo Inman on 01-27-2025 Platelets (Bld) [#/Vol] 377 10*3/uL Normal 150-450 [facility] Comment on above: Performed By: #### L 100.0100 ####[facility] [address] [place], [address] Potassium measurement (mass/ volume)Ordered By: Franco Inman on 01-27-2025 Potassium (Unsp spec) [Mass/Vol] 4.3 mmol/L 3.3-5.1 [facility] Serum creatinine measurement (mass/volume)Ordered By: Franco Inman on 01-27-2025 Creatinine [Mass/Vol] 0.75 mg/dL Normal 0.70-1.20 [facility] Comment on above: Performed By: #### L 500.4050, L501.2450 ####[facility] [address] [place], [address] Serum globulin measurementOr dered By: Franco Inman on 01-27-2025 Globulin (S) [Mass/Vol] 3.1 g/dL Normal 2.2-4.2 [facility] Comment on above: Performed By: #### L 500.4050, L501.2450 ####[facility] [address] [place], [address] Serum glucose measurement (m ass/volume)Ordered By: Franco Inman on 01-27-2025 Glucose [Mass/Vol] 130 mg/dL High 70-99 [facility] Comment on above: Performed By: #### L 500.4050, L501.2450 ####[facility] [address] [place], [address] Serum or plasma alanine pimentel otransferase (ALT) measurementOrdered By: Franco Inman on 01-27-2025 ALT [Catalytic activity/Vol] 13 U/L Normal <=34 [facility] Comment on above: Performed By: #### L 500.4050, L501.2450 ####[facility] [address] [place], [address] Serum or plasma albumin esthela urement (mass/volume)Ordered By: Franco Inman on 01-27-2025 Albumin [Mass/Vol] 4.0 g/dL Normal 3.4-4.8 [facility] Comment on above: Performed By: #### L 500.4050, L501.2450 ####[facility] [address] [place], [address] Serum or plasma albumin/glob ulin mass ratioOrdered By: Franco Inman on 01-27-2025 Albumin/Globulin [Mass ratio] 1.3 {ratio} Normal 0.9-2.4 [facility] Comment on above: Performed By: #### L 500.4050, L501.2450 ####[facility] [address] [place], [address] Serum or plasma alkaline jose sphatase measurementOrdered By: Franco Inman on 01-27-2025 ALP [Catalytic activity/Vol] 108 U/L High 35-104 [facility] Serum or plasma calcium esthela urement (mass/volume)Ordered By: Franco Inman on 01-27-2025 Calcium [Mass/Vol] 9.2 mg/dL Normal 7.6-11.0 [facility] Comment on above: Performed By: #### L 500.4050, L501.2450 ####[facility] [address] [place], [address] Serum or plasma urea nitroge n measurement (mass/volume)Ordered By: Franco Inman on 01-27-2025 Urea nitrogen [Mass/Vol] 5 mg/dL Normal 4-19 [facility] Comment on above: Performed By: #### L 500.4050, L501.2450 ####[facility] [address] [place], [address] Sodium levelOrdered By: Franco Inman on 01-27-2025 Sodium [Moles/Vol] 137 mmol/L Normal 133-145 [facility] Comment on above: Performed By: #### L 500.4050, L501.2450 ####[facility] [address] [place], [address] Total proteinOrdered By: Ezra Inman on 01-27-2025 Protein [Mass/Vol] 7.1 g/dL 5.9-8.4 [facility] White blood cell (WBC) count Ordered By: Franco Inman on 01-27-2025 WBC (Bld) [#/Vol] 15.6 10*3/uL High 4.4-11.0 [facility] Comment on above: Performed By: #### L 100.0100 ####[facility] [address] [place], [address] CNOVon 01-13-2025 CNOV Office Visit (INTMWS ) -------- GRACIE BANUELOS ([id number]) 1965 F Date Time Provider Department 01/13/25 10:40 AM SOIL[facility] INTMRAQUEL During your visit today, we recorded the following information about you: Pulse Respiration Blood pressure Weight 88/minute 16/minute 108/60 62.6 kg Soila Easton APRN.[employer] 01/13/2025 11:33 AM Signed CC: Patient presents with: Recheck: Follow up HPI Gracieterrance Banuelos is a 59 year old female who presents today for gout concerns. Recording using RUN software for draft documentation of the visit was discussed with the patient/authorized service representative; all questions welcomed and answered. 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 - Denies redness or red streaking; COPD [...] will be in the 90s. 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 - Concerns about potential need for ventilator post-surgery. - Under care of DrMax Meza at [facility]. - No recent infections, fever, or [...] Stage 3 severe COPD by GOLD classification ([facility]) 2018 Tobacco use greater than 30 years Unspecified hemorrhoids without mention of complication Urine, incontinence, stress female 11/24/2014 PAST SURGICAL HISTORY Procedure Laterality Date APPENDECTOMY at age 14 COLONOSCOPY 04/15/[address], [address] Paul Perez. COLONOSCOPY 01/23/2015 2-Tubular adenomas. Dr. Vcítor Lopez. COLONOSCOPY 07/29/2017 normal COLONOSCOPY - DIAGNOSTIC [...] for nausea/ (more content not included)... Normal [facility] CBC W/Diff, Automatedon 12-27 PATH REV Reviewed Normal [facility] Comment on above: Result Comment: SEE REPORT IN PATIENT'S EMR AMENDED REPORT 01/11/25 1354 PATH REV previously reported as: May foll Performed By: #### L 100.0100, L500.2500 ####[facility] [address] [place], [place], [address] PATH REV Reviewed Normal [facility] Comment on above: Result Comment: SEE REPORT IN PATIENT'S EMR AMENDED REPORT 01/11/25 1352 PATH REV previously reported as: May foll Performed By: #### L 100.0100, L500.2500 ####[facility] [address] [place], [address] Performed By: #### L 100.0100 ####[facility] [address] [place], [address] PATH REV Reviewed Normal [facility] Comment on above: Result Comment: SEE REPORT IN PATIENT'S EMR AMENDED REPORT 01/11/25 1342 PATH REV previously reported as: May foll Performed By: #### L 503.7505, L500.2500, L100.0100, L509.7001 ####[facility] [address] [place], [address] Matteo 01-09-2025 [facility] Telephone (INTMWS) -------- BANUELOSGRACIE ([id number]) 1965 F Date Time Provider Department 01/09/25 MISBAH ELKINS INTMWS During your visit today, we recorded the following information about you: Marge Perkins RN 01/09/2025 7:18 PM Signed Pt called in and reports she can get pull ups paid for through [email or web address]. She states the provider jst has to [...] outside her home. Sent rx to [facility]. FYI: Pt scheduled appt tomorrow with Soila Easton to discuss multiple concerns. CHERELLE Jones Amanda, RN 01/12/2025 1:15 PM Signed Pt has appointment with Soila Easton Emergency Department on 01/14/24. Allergies As of Date: 01/09/2025 [...] stress female [N39.3] 11/24/2014 HPV test positive [[id number]] 11/24/2014 Alcohol depe (more content not included)... Normal [facility] CBC W/Diff, Automatedon - PATH REV N/A Normal [facility] Comment on above: Result Comment: AMENDED REPORT 01/04/252142 PATH REV previously reported as: January Performed By: #### L 501.1090, L500.4050, L100.0100 ####[facility] [address] [place], [address] 12 Lead EKGon 01-01-2025 12 Lead EKG Normal [facility] ALP [Catalytic activity/Vol] Ordered By: Leandro Sanchez on 01-01-2025 Serum or plasma alkaline phosphatase measurement 111 U/L High 35-104 [facility] ALT [Catalytic activity/Vol] Ordered By: Leandro Sanchez on 01-01-2025 Serum or plasma alanine aminotransferase (ALT) measurement 8 U/L <35 [facility] Absolute lymphocyte countOrd ered By: Leandro Sanchez on 01-01-2025 Lymphocytes Auto (Unsp spec) [#/Vol] 3.90 10*3/uL 0.83-4.51 [facility] Absolute neutrophil countOrd ered By: Leandro Sanchez on 01-01-2025 Absolute neutrophil count 8.9 X10^3/uL High 2.0-7.7 [facility] Albumin [Mass/Vol]Ordered By : Leandro Sanchez on 01-01-2025 Serum or plasma albumin measurement (mass/volume) 3.7 g/dL 3.4-4.8 [facility] Albumin/Globulin [Mass ratio ]Ordered By: Leandro Sanchez on 01-01-2025 Serum or plasma albumin/globulin mass ratio 1.2 RATIO 0.9-2.4 [facility] Anion gap [Moles/Vol]Ordered By: Leandro Sanchez on 01-01-2025 Anion gap in Serum or Plasma 11 5-15 [facility] Anion gap in Serum or Plasma Ordered By: Leandro Sanchez on 01-01-2025 Anion gap [Moles/Vol] 11 mmol/L 5-15 [facility] BUN/creatinine ratioOrdered By: Leandro Sanchez on 01-01-2025 Urea nitrogen/Creatinine [Mass ratio] 8.7 mg/mg Low 10-20 [facility] BUN/creatinine ratio 8.7 RATIO Low 10-20 [facility] Bilirubin, totalOrdered By: Leandro Sanchez on 01-01-2025 Bilirubin [Mass/Vol] mg/dL 0.00-1.30 [facility] Bilirubin, total < 0.15 mg/dL 0.00-1.30 [facility] Blood basophils/100 leukocyt esOrdered By: Leandro Sanchez on 01-01-2025 Basophils/100 WBC (Bld) 1 % 0-1 [facility] Blood eosinophils/100 leukoc ytesOrdered By: Leandro Sanchez on 01-01-2025 Eosinophils/100 WBC (Bld) 6 % High 0-5 [facility] Blood lymphocytes/100 leukoc ytesOrdered By: Leandro Sanchez on 01-01-2025 Lymphocytes/100 WBC (Bld) 24 % 19-41 [facility] Blood metamyelocytes/100 scott kocytesOrdered By: Leandro Sanchez on 01-01-2025 Metamyelocytes/100 WBC (Bld) 7 % High 0-1 [facility] Blood metamyelocytes/100 leukocytes 7 % 0-10 [facility] Blood monocytes/100 leukocyt esOrdered By: Leandro Sanchez on 01-01-2025 Monocytes/100 WBC (Bld) 7 % 0-10 [facility] Blood segmented neutrophils/ 100 leukocytesOrdered By: Leandro Sanchez on 01-01-2025 Segmented neutrophils/100 WBC (Bld) 54 % 47-70 [facility] CBC W/Diff, Automatedon PATH REV N/A Normal [facility] Comment on above: Result Comment: AMENDED REPORT 01/01/251802 PATH REV previously reported as: January Performed By: #### L 500.2500, L100.0100 ####[facility] [address] [place], [address] Calcium [Mass/Vol]Ordered By : Leandro Sanchez on 01-01-2025 Serum or plasma calcium measurement (mass/volume) 9.0 mg/dL 7.6-11.0 [facility] Carbon dioxide, total [Moles /volume] in Central venous bloodOrdered By: Leandro Sanchez on 01-01-2025 CO2 [Moles/Vol] 28.7 mmol/L 21.0-32.0 [facility] Carbon dioxide, total [Moles/volume] in Central venous blood 28.7 mmol/L 21.0-32.0 [facility] Cells counted Molgen (Bld/Ti ss) [#]Ordered By: Leandro Sanchez on 01-01-2025 Total cell count 100 MANUAL DIFF [facility] Chest 1 View (Portable)on Chest 1 View (Portable) Normal [facility] Chloride assayOrdered By: Jose Sanchez on 01-01-2025 Chloride [Moles/Vol] 91 mmol/L Low 98-108 [facility] Chloride assay 91 mmol/L Low 98-108 [facility] Comprehensive Metabolic Prof ilon 01-01-2025 Albumin [Mass/Vol] 3.7 g/dL Normal 3.4-4.8 [facility] Comment on above: Performed By: #### L 501.2450, L500.4050, L100.0100 ####[facility] [address] [place], [address] Albumin/Globulin [Mass ratio] 1.2 {ratio} Normal 0.9-2.4 [facility] Comment on above: Performed By: #### L 501.2450, L500.4050, L100.0100 ####[facility] [address] [place], [address] ALK PHOS 111 U/L High 35-104 [facility] Comment on above: Performed By: #### L 501.2450, L500.4050, L100.0100 ####[facility] [address] [place], [address] ALT [Catalytic activity/Vol] 8 U/L Normal <=34 [facility] Comment on above: Performed By: #### L 501.2450, L500.4050, L100.0100 ####[facility] [address] [place], [address] AST [Catalytic activity/Vol] 13 U/L Normal <=31 [facility] Comment on above: Performed By: #### L 501.2450, L500.4050, L100.0100 ####[facility] [address] [place], [address] BUN/CRE 8.7 RATIO Low 10-20 [facility] Comment on above: Performed By: #### L 501.2450, L500.4050, L100.0100 ####[facility] [address] [place], [address] Calcium [Mass/Vol] 9.0 mg/dL Normal 7.6-11.0 [facility] Comment on above: Performed By: #### L 501.2450, L500.4050, L100.0100 ####[facility] [address] [place], [address] Chloride [Moles/Vol] 91 mmol/L Low 98-108 [facility] Comment on above: Performed By: #### L 501.2450, L500.4050, L100.0100 ####[facility] [address] [place], [address] CO2 [Moles/Vol] 28.7 mmol/L Normal 21.0-32.0 [facility] Comment on above: Performed By: #### L 501.2450, L500.4050, L100.0100 ####[facility] [address] [place], [address] Creatinine [Mass/Vol] 0.76 mg/dL Normal 0.70-1.20 [facility] Comment on above: Performed By: #### L 501.2450, L500.4050, L100.0100 ####[facility] [address] [place], [address] ECRCL 69.70 ml/min Normal 50-250 [facility] Comment on above: Performed By: #### L 501.2450, L500.4050, L100.0100 ####[facility] [address] [place], [address] GAP 11 Normal 5-15 [facility] Comment on above: Performed By: #### L 501.2450, L500.4050, L100.0100 ####[facility] [address] [place], [address] GFR/1.73 sq M.predicted among non-blacks MDRD (S/P/Bld) [Vol rate/Area] 89 mL/min/{1.73_m2} Normal >60 [facility] Comment on above: Result Comment: mL/m in/1.73m2 CKD-EPI Creatinine Equation (2020) Performed By: #### L 501.2450, L500.4050, L100.0100 ####[facility] [address] [place], [address] Globulin (S) [Mass/Vol] 3.2 g/dL Normal 2.2-4.2 [facility] Comment on above: Performed By: #### L 501.2450, L500.4050, L100.0100 ####[facility] [address] [place], [address] Glucose [Mass/Vol] 111 mg/dL High 70-99 [facility] Comment on above: Performed By: #### L 501.2450, L500.4050, L100.0100 ####[facility] [address] [place], [address] Potassium [Moles/Vol] 4.0 mmol/L Normal 3.3-5.1 [facility] Comment on above: Performed By: #### L 501.2450, L500.4050, L100.0100 ####[facility] [address] [place], [address] Sodium [Moles/Vol] 130 mmol/L Low 133-145 [facility] Comment on above: Performed By: #### L 501.2450, L500.4050, L100.0100 ####[facility] [address] [place], [address] T BILI < 0.15 Normal 0.00-1.30 [facility] Comment on above: Performed By: #### L 501.2450, L500.4050, L100.0100 ####[facility] [address] [place], [address] T PROT 6.9 g/dL Normal 5.9-8.4 [facility] Comment on above: Performed By: #### L 501.2450, L500.4050, L100.0100 ####[facility] [address] [place], [address] Urea nitrogen [Mass/Vol] 7 mg/dL Normal 4-19 [facility] Comment on above: Performed By: #### L 501.2450, L500.4050, L100.0100 ####[facility] [address] [place], [address] Creatinine [Mass/Vol]Ordered By: Leandro Sanchez on 01-01-2025 Serum creatinine measurement (mass/volume) 0.76 mg/dL 0.70-1.20 [facility] Emergency Department Summary on 01-01-2025 Emergency Department Summary Normal [facility] Eosinophils/100 WBC (Bld)Ord ered By: Leandro Sanchez on 01-01-2025 Blood eosinophils/100 leukocytes 6 % High 0-5 [facility] Erythrocyte distribution wid th (RBC) [Ratio]Ordered By: Leandro Sanchez on 01-01-2025 Erythrocyte distribution width ratio 15.2 % High 11.6-14.6 [facility] Erythrocyte distribution width standard deviation 47.7 fl High 35.1-43.9 [facility] Erythrocyte distribution wid th ratioOrdered By: Leandro Sanchez on 01-01-2025 Erythrocyte distribution width (RBC) [Ratio] 15.2 % High 11.6-14.6 [facility] Erythrocyte distribution wid th standard deviationOrdered By: Leandro Sanchez on 01-01-2025 Erythrocyte distribution width (RBC) [Ratio] 47.7 fl High 35.1-43.9 [facility] Estimation of creatinine bniu aranceOrdered By: Leandro Sanchez on 01-01-2025 Estimation of creatinine clearance 69.70 ml/min 50-250 [facility] GFR/1.73 sq M.predicted gregory g non-blacks MDRD (S/P/Bld) [Vol rate/Area]Ordered By: Leandro Sanchez on 01-01-2025 Glomerular filtration rate (GFR) estimation/1.73 sq m using serum, plasma, or whole b 89 >60 [facility] Glomerular filtration rate ( GFR) estimation/1.73 sq m using serum, plasma, or whole bOrdered By: Leandro Sanchez on 01-01-2025 GFR/1.73 sq M.predicted among non-blacks MDRD (S/P/Bld) [Vol rate/Area] 89 mL/min/{1.73_m2} >60 [facility] Glucose [Mass/Vol]Ordered By : Leandro Sanchez on 01-01-2025 Serum glucose measurement (mass/volume) 111 mg/dL High 70-99 [facility] Hematocrit Auto (Bld) [Volum e fraction]Ordered By: Leandro Sanchez on 01-01-2025 Hematocrit (Bld) [Volume fraction] 39.1 % 37-47 [facility] Automated blood hematocrit (percentage) 39.1 % 37-47 [facility] Hemoglobin measurementOrdere d By: Leandro Sanchez on 01-01-2025 Hemoglobin (Bld) [Mass/Vol] 12.0 g/dL 12.0-15.0 [facility] Hemoglobin measurement 12.0 g/dL 12.0-15.0 [facility] Lipaseon 01-01-2025 Lipase [Catalytic activity/Vol] 75 U/L Normal 13-75 [facility] Comment on above: Result Comment: Jenny capellan note:LIPASE revised reference range effective 23.New Lipase methodology. Expected to produce lower valuesthan the previous assay method.NEW Reference Range: 13 - 75 U/L Performed By: #### L 501.2450, L500.4050, L100.0100 ####[facility] [address] [place], [address] Lipase measurementOrdered By : Leandro Sanchez on 01-01-2025 Lipase measurement 75 U/L 13-75 [facility] Lymphocytes Auto (Unsp spec) [#/Vol]Ordered By: Leandro Sanchez on 01-01-2025 Absolute lymphocyte count 3.90 X10^3/uL 0.83-4.51 [facility] Lymphocytes/100 WBC (Bld)Ord ered By: Leandro Sanchez on 01-01-2025 Blood lymphocytes/100 leukocytes 24 % 19-41 [facility] MCV (RBC) [Entitic vol]Order ed By: Leandro Sanchez on 01-01-2025 MCV (mean corpuscular volume) determination 86.7 fL 81-99 [facility] MCV (mean corpuscular volume ) determinationOrdered By: Leandro Sanchez on 01-01-2025 MCV (RBC) [Entitic vol] 86.7 fL 81-99 [facility] Mean corpuscular hemoglobin (MCH) determinationOrdered By: Leandro Sanchez on 01-01-2025 MCH (RBC) [Entitic mass] 26.6 pg Low 27.0-32.0 [facility] Mean corpuscular hemoglobin (MCH) determination 26.6 pg Low 27.0-32.0 [facility] Mean corpuscular hemoglobin concentration (MCHC) determinationOrdered By: Leandro Sanchez on 01-01-2025 Mean corpuscular hemoglobin concentration (MCHC) determination 30.7 g/dL Low 32-36 [facility] Mean platelet volume determi nationOrdered By: Leandro Sanchez on 01-01-2025 Mean platelet volume determination 8.9 fl 6.2-12.0 [facility] Microcytosis evaluation pane lOrdered By: Leandro Sanchez on 01-01-2025 Microcytosis evaluation panel 1+ [facility] Myelocyte %Ordered By: Leandro Sanchez on 01-01-2025 Myelocyte % 1 % 0-1 [facility] Neutrophil percentageOrdered By: Leandro Sanchez on 01-01-2025 Neutrophil percentage Not Reportable [facility] No Panel InformationOrdered By: Leandro Sanchez on 01-01-2025 13 U/L <32 [facility] Pathologist review Geovany (Unsp spec) [Interp]Ordered By: Leandro Sanchez on 01-01-2025 Review by pathologist Tiesha gotti [facility] Platelet countOrdered By: Jose Sanchez on 01-01-2025 Platelets (Bld) [#/Vol] 553 10*3/uL High 150-450 [facility] Platelet count 553 K/mm3 High 150-450 [facility] Potassium (Unsp spec) [Mass/ Vol]Ordered By: Leandro Sanchez on 01-01-2025 Potassium measurement (mass/volume) 4.0 mmol/L 3.3-5.1 [facility] Potassium measurement (mass/ volume)Ordered By: Leandro Sanchez on 01-01-2025 Potassium (Unsp spec) [Mass/Vol] 4.0 mmol/L 3.3-5.1 [facility] RBC Auto (Bld) [#/Vol]Ordere d By: Leandro Sanchez on 01-01-2025 RBC (Bld) [#/Vol] 4.51 10*6/uL 4.2-5.4 [facility] Automated blood erythrocyte count 4.51 M/mm3 4.2-5.4 [facility] Review by pathologistOrdered By: Leandro Sanchez on 01-01-2025 Pathologist review Geovany (Unsp spec) [Interp] N/A [facility] Segmented neutrophils/100 WB C (Bld)Ordered By: Leandro Sanchez on 01-01-2025 Blood segmented neutrophils/100 leukocytes 54 % 47-70 [facility] Serum creatinine measurement (mass/volume)Ordered By: Leandro Sanchez on 01-01-2025 Creatinine [Mass/Vol] 0.76 mg/dL 0.70-1.20 [facility] Serum globulin measurementOr dered By: Leandro Sanchez on 01-01-2025 Globulin (S) [Mass/Vol] 3.2 g/dL 2.2-4.2 [facility] Serum globulin measurement 3.2 g/dL 2.2-4.2 [facility] Serum glucose measurement (m ass/volume)Ordered By: Leandro Sanchez on 01-01-2025 Glucose [Mass/Vol] 111 mg/dL High 70-99 [facility] Serum or plasma alanine pimentel otransferase (ALT) measurementOrdered By: Leandro Sanchez on 01-01-2025 ALT [Catalytic activity/Vol] 8 U/L <35 [facility] Serum or plasma albumin esthela urement (mass/volume)Ordered By: Leandro Sanchez on 01-01-2025 Albumin [Mass/Vol] 3.7 g/dL 3.4-4.8 [facility] Serum or plasma albumin/glob ulin mass ratioOrdered By: Leandro Sanchez on 01-01-2025 Albumin/Globulin [Mass ratio] 1.2 {ratio} 0.9-2.4 [facility] Serum or plasma alkaline jose sphatase measurementOrdered By: Leandro Sanchez on 01-01-2025 ALP [Catalytic activity/Vol] 111 U/L High 35-104 [facility] Serum or plasma calcium esthela urement (mass/volume)Ordered By: Leandro Sanchez on 01-01-2025 Calcium [Mass/Vol] 9.0 mg/dL 7.6-11.0 [facility] Serum or plasma urea nitroge n measurement (mass/volume)Ordered By: Leandro Sanchez on 01-01-2025 Urea nitrogen [Mass/Vol] 7 mg/dL 4-19 [facility] Sodium levelOrdered By: Leandro Sanchez on 01-01-2025 Sodium [Moles/Vol] 130 mmol/L Low 133-145 [facility] Sodium level 130 mmol/L Low 133-145 [facility] Total cell countOrdered By: Leandro Sanchez on 01-01-2025 Cells counted Molgen (Bld/Tiss) [#] 100 MANUAL DIFF [facility] Total proteinOrdered By: Bhargavi Sanchez on 01-01-2025 Protein [Mass/Vol] 6.9 g/dL 5.9-8.4 [facility] Total protein 6.9 g/dL 5.9-8.4 [facility] Urea nitrogen [Mass/Vol]Orde red By: Leandro Sanchez on 01-01-2025 Serum or plasma urea nitrogen measurement (mass/volume) 7 mg/dL 4-19 [facility] White blood cell (WBC) count Ordered By: Leandro Sanchez on 01-01-2025 WBC (Bld) [#/Vol] 16.5 10*3/uL High 4.4-11.0 [facility] White blood cell (WBC) count 16.5 K/mm3 High 4.4-11.0 [facility] CNPNon 12-27-2024 CNPN Telephone (DDQ) -------- VINGRACIE ([id number]) 1965 F Date Time Provider Department 12/27/24 [...] Patient returned call. Can be reached at: [phone] (home) Juan Bloom LPN 12/28/2024 3:45 PM [...] would notify Juan Senior as well MCKENNA eLhaily BessyViridianaNoemí 01/04/2025 3:16 PM Signed Patient called back. She would like to speak with Juan Senior to touch base. She has a pain management appt at 1:00 tomorrow. [phone] (home) Juan Senior APRN.CNP 01/05/2025 10:42 AM Signed Spoke with patient. She says she is feeling better but still experiencing abdominal pain. 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 Normal [facility] ALP [Catalytic activity/Vol] Ordered By: Mo Velasco on 12-24-2024 Serum or plasma alkaline phosphatase measurement 117 U/L High 35-104 [facility] ALT [Catalytic activity/Vol] Ordered By: Mo Velasco on 12-24-2024 Serum or plasma alanine aminotransferase (ALT) measurement 18 U/L <35 [facility] Absolute lymphocyte countOrd ered By: Mo Velasco on 12-24-2024 Lymphocytes Auto (Unsp spec) [#/Vol] 2.44 10*3/uL 0.83-4.51 [facility] Absolute neutrophil countOrd ered By: Mo Velasco on 12-24-2024 Absolute neutrophil count 14.1 X10^3/uL High 2.0-7.7 [facility] Albumin [Mass/Vol]Ordered By : Mo Velasco on 12-24-2024 Serum or plasma albumin measurement (mass/volume) 3.4 g/dL 3.4-4.8 [facility] Anion gap [Moles/Vol]Ordered By: Mo Velasco on 12-24-2024 Anion gap in Serum or Plasma 13 5-15 [facility] Anion gap in Serum or Plasma Ordered By: Mo Velasco on 12-24-2024 Anion gap [Moles/Vol] 13 mmol/L - [facility] Automated lymphocyte count a s percentage of total leukocytesOrdered By: Mo Velasco on 12-24-2024 Lymphocytes/100 WBC Auto (Unsp spec) 13.4 % Low 19-41 [facility] BUN/creatinine ratioOrdered By: Mo Velasco on 12-24-2024 Urea nitrogen/Creatinine [Mass ratio] 4.2 mg/mg Low 10-20 [facility] BUN/creatinine ratio 4.2 RATIO Low 10-20 [facility] Basic Metabolic Profile (BMP )on 12-24-2024 BUN/CRE 4.2 RATIO Low 10-20 [facility] Comment on above: Performed By: #### L 100.0100, L501.2450, L500.3400, L500.2500 ####[facility] [address] [place], [address] Calcium [Mass/Vol] 9.3 mg/dL Normal 7.6-11.0 [facility] Comment on above: Performed By: #### L 100.0100, L501.2450, L500.3400, L500.2500 ####[facility] [address] [place], [address] Chloride [Moles/Vol] 97 mmol/L Low 98-108 [facility] Comment on above: Performed By: #### L 100.0100, L501.2450, L500.3400, L500.2500 ####[facility] [address] [place], [address] CO2 [Moles/Vol] 28.1 mmol/L Normal 21.0-32.0 [facility] Comment on above: Performed By: #### L 100.0100, L501.2450, L500.3400, L500.2500 ####[facility] [address] [place], [address] Creatinine [Mass/Vol] 0.77 mg/dL Normal 0.70-1.20 [facility] Comment on above: Performed By: #### L 100.0100, L501.2450, L500.3400, L500.2500 ####[facility] [address] [place], [address] ECRCL 63.47 ml/min Normal 50-250 [facility] Comment on above: Performed By: #### L 100.0100, L501.2450, L500.3400, L500.2500 ####[facility] [address] [place], [address] GAP 13 Normal 5-15 [facility] Comment on above: Performed By: #### L 100.0100, L501.2450, L500.3400, L500.2500 ####[facility] [address] [place], [address] GFR/1.73 sq M.predicted among non-blacks MDRD (S/P/Bld) [Vol rate/Area] 88 mL/min/{1.73_m2} Normal >60 [facility] Comment on above: Result Comment: mL/m in/1.73m2 CKD-EPI Creatinine Equation (2020) Performed By: #### L 100.0100, L501.2450, L500.3400, L500.2500 ####[facility] [address] [place], [address] Glucose [Mass/Vol] 131 mg/dL High 70-99 [facility] Comment on above: Performed By: #### L 100.0100, L501.2450, L500.3400, L500.2500 ####[facility] [address] [place], [address] Potassium [Moles/Vol] 4.1 mmol/L Normal 3.3-5.1 [facility] Comment on above: Performed By: #### L 100.0100, L501.2450, L500.3400, L500.2500 ####[facility] [address] [place], [address] Sodium [Moles/Vol] 137 mmol/L Normal 133-145 [facility] Comment on above: Performed By: #### L 100.0100, L501.2450, L500.3400, L500.2500 ####[facility] [address] [place], [address] Urea nitrogen [Mass/Vol] 3 mg/dL Low 4-19 [facility] Comment on above: Performed By: #### L 100.0100, L501.2450, L500.3400, L500.2500 ####[facility] [address] [place], [address] Basophil percentageOrdered B y: Mo Velasco on 12-24-2024 Basophils/100 WBC (Bld) 0.7 % 0-1 [facility] Basophil percentage 0.7 % 0-1 [facility] Bilirubin directOrdered By: Mo Velasco on 12-24-2024 Bilirubin.direct [Mass/Vol] 0.09 mg/dL 0.00-0.30 [facility] Bilirubin, totalOrdered By: Mo Velasco on 12-24-2024 Bilirubin [Mass/Vol] 0.19 mg/dL 0.00-1.30 [facility] Bilirubin, total 0.19 mg/dL 0.00-1.30 [facility] Bilirubin.direct [Mass/Vol]O rdered By: Mo Velasco on 12-24-2024 Bilirubin direct 0.09 mg/dL 0.00-0.30 [facility] CBC W/Diff, Automatedon 11-27 Absolute Lymph 2.44 X10 3/uL Normal 0.83-4.51 [facility] Comment on above: Performed By: #### L 100.0100, L501.2450, L500.3400, L500.2500 ####[facility] [address] [place], [address] Absolute Neut 14.1 X10 3/uL High 2.0-7.7 [facility] Comment on above: Performed By: #### L 100.0100, L501.2450, L500.3400, L500.2500 ####[facility] [address] [place], [address] Basophils/100 WBC (Bld) 0.7 % Normal 0-1 [facility] Comment on above: Performed By: #### L 100.0100, L501.2450, L500.3400, L500.2500 ####[facility] [address] [place], [address] Eosinophils/100 WBC (Bld) 2.3 % Normal 0-5 [facility] Comment on above: Performed By: #### L 100.0100, L501.2450, L500.3400, L500.2500 ####[facility] [address] [place], [address] Erythrocyte distribution width (RBC) [Ratio] 14.6 % Normal 11.6-14.6 [facility] Comment on above: Performed By: #### L 100.0100, L501.2450, L500.3400, L500.2500 ####[facility] [address] [place], [address] Hematocrit (Bld) [Volume fraction] 33.8 % Low 37-47 [facility] Comment on above: Performed By: #### L 100.0100, L501.2450, L500.3400, L500.2500 ####[facility] [address] [place], [address] Hemoglobin (Bld) [Mass/Vol] 10.8 g/dL Low 12.0-15.0 [facility] Comment on above: Performed By: #### L 100.0100, L501.2450, L500.3400, L500.2500 ####[facility] [address] [place], [address] IG% 0.900 Normal 0.0-0.9 [facility] Comment on above: Result Comment: IG% - Immature Granulocytes (promyelocytes, myelocytes andmetamyelocytes) > 1% indicates that a LEFT SHIFT is Present. Performed By: #### L 100.0100, L501.2450, L500.3400, L500.2500 ####[facility] [address] [place], [address] Lymphocytes/100 WBC (Bld) 13.4 % Low 19-41 [facility] Comment on above: Performed By: #### L 100.0100, L501.2450, L500.3400, L500.2500 ####[facility] [address] [place], [address] MCH (RBC) [Entitic mass] 26.9 pg Low 27.0-32.0 [facility] Comment on above: Performed By: #### L 100.0100, L501.2450, L500.3400, L500.2500 ####[facility] [address] [place], [address] MCHC (RBC) [Mass/Vol] 32.0 g/dL Normal 32-36 [facility] Comment on above: Performed By: #### L 100.0100, L501.2450, L500.3400, L500.2500 ####[facility] [address] [place], [address] MCV (RBC) [Entitic vol] 84.1 fL Normal 81-99 [facility] Comment on above: Performed By: #### L 100.0100, L501.2450, L500.3400, L500.2500 ####[facility] [address] [place], [address] Monocytes/100 WBC (Bld) 5.5 % Normal 0-10 [facility] Comment on above: Performed By: #### L 100.0100, L501.2450, L500.3400, L500.2500 ####[facility] [address] [place], [address] Neutrophils/100 WBC (Bld) 77.2 % High 47-70 [facility] Comment on above: Performed By: #### L 100.0100, L501.2450, L500.3400, L500.2500 ####[facility] [address] [place], [address] Nucleated RBC (Bld) [#/Vol] 0 10*3/uL Normal 0-5 [facility] Comment on above: Performed By: #### L 100.0100, L501.2450, L500.3400, L500.2500 ####[facility] [address] [place], [address] Platelet mean volume (Bld) [Entitic vol] 9.3 fL Normal 6.2-12.0 [facility] Comment on above: Performed By: #### L 100.0100, L501.2450, L500.3400, L500.2500 ####[facility] [address] [place], [address] Platelets (Bld) [#/Vol] 396 10*3/uL Normal 150-450 [facility] Comment on above: Performed By: #### L 100.0100, L501.2450, L500.3400, L500.2500 ####[facility] [address] [place], [address] RBC (Bld) [#/Vol] 4.02 10*6/uL Low 4.2-5.4 [facility] Comment on above: Performed By: #### L 100.0100, L501.2450, L500.3400, L500.2500 ####[facility] [address] [place], [address] RDW SD 45.1 fl High 35.1-43.9 [facility] Comment on above: Performed By: #### L 100.0100, L501.2450, L500.3400, L500.2500 ####[facility] [address] [place], [address] WBC (Bld) [#/Vol] 18.2 10*3/uL High 4.4-11.0 [facility] Comment on above: Performed By: #### L 100.0100, L501.2450, L500.3400, L500.2500 ####[facility] [address] [place], [address] Calcium [Mass/Vol]Ordered By : Mo Velasco on 12-24-2024 Serum or plasma calcium measurement (mass/volume) 9.3 mg/dL 7.6-11.0 [facility] Carbon dioxide, total [Moles /volume] in Central venous bloodOrdered By: Mo Velasco on 12-24-2024 CO2 [Moles/Vol] 28.1 mmol/L 21.0-32.0 [facility] Carbon dioxide, total [Moles/volume] in Central venous blood 28.1 mmol/L 21.0-32.0 [facility] Chloride assayOrdered By: Roman Velasco on 12-24-2024 Chloride [Moles/Vol] 97 mmol/L Low 98-108 [facility] Chloride assay 97 mmol/L Low 98-108 [facility] Creatinine [Mass/Vol]Ordered By: Mo Velasco on 12-24-2024 Serum creatinine measurement (mass/volume) 0.77 mg/dL 0.70-1.20 [facility] Emergency Department Summary on 12-24-2024 Emergency Department Summary Normal [facility] Eosinophil percentageOrdered By: Mo Velasco on 12-24-2024 Eosinophils/100 WBC (Bld) 2.3 % 0-5 [facility] Eosinophil percentage 2.3 % 0-5 [facility] Erythrocyte distribution wid th (RBC) [Ratio]Ordered By: Mo Velasco on 12-24-2024 Erythrocyte distribution width ratio 14.6 % 11.6-14.6 [facility] Erythrocyte distribution wid th ratioOrdered By: Mo Velasco on 12-24-2024 Erythrocyte distribution width (RBC) [Ratio] 14.6 % 11.6-14.6 [facility] Erythrocyte distribution wid th standard deviationOrdered By: Mo Velasco on 12-24-2024 Erythrocyte distribution width (RBC) [Ratio] 45.1 fl High 35.1-43.9 [facility] Erythrocyte distribution width standard deviation 45.1 fl High 35.1-43.9 [facility] Estimation of creatinine binu aranceOrdered By: Mo Velasco on 12-24-2024 Estimation of creatinine clearance 63.47 ml/min 50-250 [facility] GFR/1.73 sq M.predicted gregory g non-blacks MDRD (S/P/Bld) [Vol rate/Area]Ordered By: Mo Velasco on 12-24-2024 Glomerular filtration rate (GFR) estimation/1.73 sq m using serum, plasma, or whole b 88 >60 [facility] Glomerular filtration rate ( GFR) estimation/1.73 sq m using serum, plasma, or whole bOrdered By: Mo Velasco on 12-24-2024 GFR/1.73 sq M.predicted among non-blacks MDRD (S/P/Bld) [Vol rate/Area] 88 mL/min/{1.73_m2} >60 [facility] Glucose [Mass/Vol]Ordered By : Mo Velasco on 12-24-2024 Serum glucose measurement (mass/volume) 131 mg/dL High 70-99 [facility] Hematocrit Auto (Bld) [Volum e fraction]Ordered By: Mo Velasco on 12-24-2024 Hematocrit (Bld) [Volume fraction] 33.8 % Low 37-47 [facility] Automated blood hematocrit (percentage) 33.8 % Low 37-47 [facility] Hemoglobin measurementOrdere d By: Mo Velasco on 12-24-2024 Hemoglobin (Bld) [Mass/Vol] 10.8 g/dL Low 12.0-15.0 [facility] Hemoglobin measurement 10.8 g/dL Low 12.0-15.0 [facility] Immature granulocytes/100 WB C Auto (Bld)Ordered By: Mo Velasco on 12-24-2024 Immature granulocytes/100 WBC (Bld) 0.900 % 0.0-0.9 [facility] Automated immature granulocyte percentage 0.900 % 0.0-0.9 [facility] Lipaseon 12-24-2024 Lipase [Catalytic activity/Vol] 34 U/L Normal 13-75 [facility] Comment on above: Result Comment: Jenny capellan note:LIPASE revised reference range effective 23.New Lipase methodology. Expected to produce lower valuesthan the previous assay method.NEW Reference Range: 13 - 75 U/L Performed By: #### L 100.0100, L501.2450, L500.3400, L500.2500 ####[facility] [address] [place], [place], [id number] Lipase measurementOrdered By : Mo Velasco on 12-24-2024 Lipase measurement 34 U/L [facility] Liver Profileon 12-24-2024 Albumin [Mass/Vol] 3.4 g/dL Normal 3.4-4.8 [facility] Comment on above: Performed By: #### L 100.0100, L501.2450, L500.3400, L500.2500 ####[facility] [address] [place], [address] ALK PHOS 117 U/L High 35-104 [facility] Comment on above: Performed By: #### L 100.0100, L501.2450, L500.3400, L500.2500 ####[facility] [address] [place], [address] ALT [Catalytic activity/Vol] 18 U/L Normal <=34 [facility] Comment on above: Performed By: #### L 100.0100, L501.2450, L500.3400, L500.2500 ####[facility] [address] [place], [address] AST [Catalytic activity/Vol] 16 U/L Normal <=31 [facility] Comment on above: Performed By: #### L 100.0100, L501.2450, L500.3400, L500.2500 ####[facility] [address] [place], [address] Bilirubin [Mass/Vol] 0.19 mg/dL Normal 0.00-1.30 [facility] Comment on above: Performed By: #### L 100.0100, L501.2450, L500.3400, L500.2500 ####[facility] [address] [place], [address] Bilirubin.direct [Mass/Vol] 0.09 mg/dL Normal 0.00-0.30 [facility] Comment on above: Performed By: #### L 100.0100, L501.2450, L500.3400, L500.2500 ####[facility] [address] [place], [address] Globulin (S) [Mass/Vol] 3.7 g/dL Normal 2.2-4.2 [facility] Comment on above: Performed By: #### L 100.0100, L501.2450, L500.3400, L500.2500 ####[facility] [address] [place], [address] T PROT 7.1 g/dL Normal 5.9-8.4 [facility] Comment on above: Performed By: #### L 100.0100, L501.2450, L500.3400, L500.2500 ####[facility] [address] [place], [address] Lymphocytes Auto (Unsp spec) [#/Vol]Ordered By: Mo Velasco on 12-24-2024 Absolute lymphocyte count 2.44 X10^3/uL 0.83-4.51 [facility] Lymphocytes/100 WBC Auto (Un sp spec)Ordered By: Mo Velasco on 12-24-2024 Automated lymphocyte count as percentage of total leukocytes 13.4 % Low 19-41 [facility] MCV (RBC) [Entitic vol]Order ed By: Mo Velasco on 12-24-2024 MCV (mean corpuscular volume) determination 84.1 fL 81-99 [facility] MCV (mean corpuscular volume ) determinationOrdered By: Mo Velasco on 12-24-2024 MCV (RBC) [Entitic vol] 84.1 fL 81-99 [facility] Mean corpuscular hemoglobin (MCH) determinationOrdered By: Mo Velasco on 12-24-2024 MCH (RBC) [Entitic mass] 26.9 pg Low 27.0-32.0 [facility] [facility] [place] Mean corpuscular hemoglobin (MCH) determination 26.9 pg Low 27.0-32.0 [facility] Mean corpuscular hemoglobin concentration (MCHC) determinationOrdered By: Mo Velasco on 12-24-2024 Mean corpuscular hemoglobin concentration (MCHC) determination 32.0 g/dL 32-36 [facility] Mean platelet volume determi nationOrdered By: Mo Velasco on 12-24-2024 Mean platelet volume determination 9.3 fl 6.2-12.0 [facility] Monocyte percentageOrdered B y: Mo Velasco on 12-24-2024 Monocytes/100 WBC (Bld) 5.5 % 0-10 [facility] Monocyte percentage 5.5 % 0-10 [facility] Neutrophil percentageOrdered By: Mo Velasco on 12-24-2024 Neutrophils/100 WBC (Bld) 77.2 % High 47-70 [facility] Neutrophil percentage 77.2 % High 47-70 [facility] No Panel InformationOrdered By: Mo Velasco on 12-24-2024 16 U/L <32 [facility] Nucleated red blood cell per centageOrdered By: Mo Velasco on 12-24-2024 Nucleated red blood cell percentage 0 % 0-5 [facility] Platelet countOrdered By: Roman Velasco on 12-24-2024 Platelets (Bld) [#/Vol] 396 10*3/uL 150-450 [facility] Platelet count 396 K/mm3 150-450 [facility] Potassium (Unsp spec) [Mass/ Vol]Ordered By: Mo Velasco on 12-24-2024 Potassium measurement (mass/volume) 4.1 mmol/L 3.3-5.1 [facility] Potassium measurement (mass/ volume)Ordered By: Mo Velasco on 12-24-2024 Potassium (Unsp spec) [Mass/Vol] 4.1 mmol/L 3.3-5.1 [facility] RBC Auto (Bld) [#/Vol]Ordere d By: Mo Velasco on 12-24-2024 RBC (Bld) [#/Vol] 4.02 10*6/uL Low 4.2-5.4 [facility] Automated blood erythrocyte count 4.02 M/mm3 Low 4.2-5.4 [facility] Serum creatinine measurement (mass/volume)Ordered By: Mo Velasco on 12-24-2024 Creatinine [Mass/Vol] 0.77 mg/dL 0.70-1.20 [facility] Serum globulin measurementOr dered By: Mo Velasco on 12-24-2024 Globulin (S) [Mass/Vol] 3.7 g/dL 2.2-4.2 [facility] Serum globulin measurement 3.7 g/dL 2.2-4.2 [facility] Serum glucose measurement (m ass/volume)Ordered By: Mo Velasco on 12-24-2024 Glucose [Mass/Vol] 131 mg/dL High 70-99 [facility] Serum or plasma alanine pimentel otransferase (ALT) measurementOrdered By: Mo Velasco on 12-24-2024 ALT [Catalytic activity/Vol] 18 U/L <35 [facility] Serum or plasma albumin esthela urement (mass/volume)Ordered By: Mo Velasco on 12-24-2024 Albumin [Mass/Vol] 3.4 g/dL 3.4-4.8 [facility] Serum or plasma alkaline jose sphatase measurementOrdered By: Mo Velasco on 12-24-2024 ALP [Catalytic activity/Vol] 117 U/L High 35-104 [facility] Serum or plasma calcium esthela urement (mass/volume)Ordered By: Mo Velasco on 12-24-2024 Calcium [Mass/Vol] 9.3 mg/dL 7.6-11.0 [facility] Serum or plasma urea nitroge n measurement (mass/volume)Ordered By: Mo Velasco on 12-24-2024 Urea nitrogen [Mass/Vol] 3 mg/dL Low - [facility] Sodium levelOrdered By: Mo Velasco on 12-24-2024 Sodium [Moles/Vol] 137 mmol/L 133-145 [facility] Sodium level 137 mmol/L 133-145 [facility] Total proteinOrdered By: Bruce Velasco on 12-24-2024 Protein [Mass/Vol] 7.1 g/dL 5.9-8.4 [facility] Total protein 7.1 g/dL 5.9-8.4 [facility] Urea nitrogen [Mass/Vol]Orde red By: Mo Velasco on 12-24-2024 Serum or plasma urea nitrogen measurement (mass/volume) 3 mg/dL Low - [facility] White blood cell (WBC) count Ordered By: Mo Velasco on 12-24-2024 WBC (Bld) [#/Vol] 18.2 10*3/uL High 4.4-11.0 [facility] White blood cell (WBC) count 18.2 K/mm3 High 4.4-11.0 [facility] CNPNon 12-23-2024 ALE Telephone (GAPRA3) -------- GRACIE BANUELOS ([id number]) 1965 F Date Time Provider Department 12/23/24 RAISA JIMENEZ3 During your visit today, we [...] Date Reviewed: 12/19/2024 Reviewed by: Tara Youngblood APRN.COMPANY MARKER - Fully Assessed Reason for Visit: Reminder Call [[id number]] Cmt: Missed call Prescriptions as of 12/23/2024 [...] stress female [N39.3] 11/24/2014 HPV test positive [[id number]] 11/24/2014 Alcohol dependence in remission (HCC) [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 Author Type: Registered Nurse Type: Nursing Progress Note Filed: 12/20/2024 14:56 Note Text: Attempted to reach the patient at the contact number that they provided [phone] (home) . Unable to speak with patient so without identifying the patient the following information was left on their voice mail: Date of procedure, location and report time Prep instructions A message was left informing the patient/patient service representative they must have a responsible [...] Number to call with questions or concerns [phone] Number to call to cancel their procedure [phone] Carroll Leblanc RN Normal [facility] CBC W Auto Differential pane l (Bld)on 12-19-2024 Basophils (Bld) [#/Vol] 0.23 10*3/uL High <0.11 [facility] Comment on above: Order Comment: Speci men Type: BLOOD SPECIMEN Ordering Facility: [facility] Address: [address] [place] [address] Performed By: #### 5 7021-8 #### [facility] CLIA [id number] [address] [place] [address] [place] Basophils/100 WBC (Bld) 0.9 % Normal [facility] Comment on above: Order Comment: Speci men Type: BLOOD SPECIMEN Ordering Facility: [facility] Address: [address] [place] [address] Performed By: #### 5 7021-8 #### [facility] CLIA [id number] [address] [place] [address] [place] Dacrocytes LM Ql (Bld) Few Normal [facility] Comment on above: Order Comment: Speci men Type: BLOOD SPECIMEN Ordering Facility: [facility] Address: [address] [place] [address] Performed By: #### 5 7021-8 #### [facility] CLIA [id number] [address] [place] [address] [place] Differential cell count method Nom (Bld) Manual Normal [facility] Comment on above: Order Comment: Speci men Type: BLOOD SPECIMEN Ordering Facility: [facility] Address: [address] [place] [address] Performed By: #### 5 7021-8 #### [facility] CLIA [id number] [address] [place] [address] [place] Eosinophils (Bld) [#/Vol] 0.00 10*3/uL Normal <0.46 [facility] Comment on above: Order Comment: Speci men Type: BLOOD SPECIMEN Ordering Facility: [facility] Address: [address] [place] [address] Performed By: #### 5 7021-8 #### [facility] CLIA [id number] [address] [place] [address] [place] Eosinophils/100 WBC (Bld) 0.0 % Normal [facility] Comment on above: Order Comment: Speci men Type: BLOOD SPECIMEN Ordering Facility: [facility] Address: [address] [place] [address] Performed By: #### 5 7021-8 #### [facility] CLIA [id number] [address] [place] [address] [place] Erythrocyte distribution width (RBC) [Ratio] 14.7 % Normal 11.5-15.0 [facility] Comment on above: Order Comment: Speci men Type: BLOOD SPECIMEN Ordering Facility: [facility] Address: [address] [place] [address] Performed By: #### 5 7021-8 #### [facility] CLIA [id number] [address] [place] [address] [place] Hematocrit (Bld) [Volume fraction] 38.4 % Normal 36.0-46.0 [facility] Comment on above: Order Comment: Speci men Type: BLOOD SPECIMEN Ordering Facility: [facility] Address: [address] [place] [address] Performed By: #### 5 7021-8 #### [facility] CLIA [id number] [address] [place] [address] [place] Hemoglobin (Bld) [Mass/Vol] 11.6 g/dL Normal 11.5-15.5 [facility] Comment on above: Order Comment: Speci men Type: BLOOD SPECIMEN Ordering Facility: [facility] Address: [address] [place] [address] Performed By: #### 5 7021-8 #### [facility] CLIA [id number] [address] [place] [address] [place] Lymphocytes (Bld) [#/Vol] 3.58 10*3/uL Normal 1.00-4.00 [facility] Comment on above: Order Comment: Speci men Type: BLOOD SPECIMEN Ordering Facility: [facility] Address: [address] [place] [address] Performed By: #### 5 7021-8 #### [facility] CLIA [id number] [address] [place] [address] [place] Lymphocytes/100 WBC (Bld) 14.0 % Normal [facility] Comment on above: Order Comment: Speci men Type: BLOOD SPECIMEN Ordering Facility: [facility] Address: [address] [place] [address] Performed By: #### 5 7021-8 #### [facility] CLIA [id number] [address] [place] [address] [place] MCH (RBC) [Entitic mass] 26.7 pg Normal 26.0-34.0 [facility] Comment on above: Order Comment: Speci men Type: BLOOD SPECIMEN Ordering Facility: [facility] Address: [address] [place] [address] Performed By: #### 5 7021-8 #### [facility] CLIA [id number] [address] [place] [address] [place] MCHC (RBC) [Mass/Vol] 30.2 g/dL Low 30.5-36.0 [facility] Comment on above: Order Comment: Speci men Type: BLOOD SPECIMEN Ordering Facility: [facility] Address: [address] [place] [address] Performed By: #### 5 7021-8 #### [facility] CLIA [id number] [address] [place] [address] [place] MCV (RBC) [Entitic vol] 88.5 fL Normal 80.0-100.0 [facility] Comment on above: Order Comment: Speci men Type: BLOOD SPECIMEN Ordering Facility: [facility] Address: [address] [place] [address] Performed By: #### 5 7021-8 #### [facility] CLIA [id number] [address] [place] [address] [place] Metamyelocytes/100 WBC (Bld) 0.9 % Normal [facility] Comment on above: Order Comment: Speci men Type: BLOOD SPECIMEN Ordering Facility: [facility] Address: [address] [place] [address] Performed By: #### 5 7021-8 #### [facility] CLIA [id number] [address] [place] [address] [place] Monocytes (Bld) [#/Vol] 0.90 10*3/uL High <0.87 [facility] Comment on above: Order Comment: Speci men Type: BLOOD SPECIMEN Ordering Facility: [facility] Address: [address] [place] [address] Performed By: #### 5 7021-8 #### [facility] CLIA [id number] [address] [place] [address] [place] Monocytes/100 WBC (Bld) 3.5 % Normal [facility] Comment on above: Order Comment: Speci men Type: BLOOD SPECIMEN Ordering Facility: [facility] Address: [address] [place] [address] Performed By: #### 5 7021-8 #### [facility] CLIA [id number] [address] [place] [address] [place] Neutrophils (Bld) [#/Vol] 20.64 10*3/uL High 1.45-7.50 [facility] Comment on above: Order Comment: Speci men Type: BLOOD SPECIMEN Ordering Facility: [facility] Address: [address] [place] [address] Performed By: #### 5 7021-8 #### [facility] CLIA [id number] [address] [place] [address] [place] Neutrophils/100 WBC (Bld) 80.7 % Normal [facility] Comment on above: Order Comment: Speci men Type: BLOOD SPECIMEN Ordering Facility: [facility] Address: [address] [place] [address] Performed By: #### 5 7021-8 #### [facility] CLIA [id number] [address] [place] [address] [place] Nucleated RBC (Bld) [#/Vol] 10*3/uL Normal <0.01 [facility] Comment on above: Order Comment: Speci men Type: BLOOD SPECIMEN Ordering Facility: [facility] Address: [address] [place] [address] Performed By: #### 5 7021-8 #### [facility] CLIA [id number] [address] [place] [address] [place] Nucleated RBC/100 WBC (Bld) [Ratio] 0.0 /100 WBC Normal [facility] Comment on above: Order Comment: Speci men Type: BLOOD SPECIMEN Ordering Facility: [facility] Address: [address] [place] [address] Performed By: #### 5 7021-8 #### [facility] CLIA [id number] [address] [place] [address] [place] Ovalocytes LM Ql (Bld) Few Normal [facility] Comment on above: Order Comment: Speci men Type: BLOOD SPECIMEN Ordering Facility: [facility] Address: [address] [place] [address] Performed By: #### 5 7021-8 #### [facility] CLIA [id number] [address] [place] [address] [place] Platelet mean volume (Bld) [Entitic vol] 10.9 fL Normal 9.0-12.7 [facility] Comment on above: Order Comment: Speci men Type: BLOOD SPECIMEN Ordering Facility: [facility] Address: [address] [place] [address] Performed By: #### 5 7021-8 #### [facility] CLIA [id number] [address] [place] [address] [place] Platelets (Bld) [#/Vol] 331 10*3/uL Normal 150-400 [facility] Comment on above: Order Comment: Speci men Type: BLOOD SPECIMEN Ordering Facility: [facility] Address: [address] [place] [address] Performed By: #### 5 7021-8 #### [facility] CLIA [id number] [address] [place] [address] [place] Platelets Estimate (Bld) [#/Vol] Adequate Normal [facility] Comment on above: Order Comment: Speci men Type: BLOOD SPECIMEN Ordering Facility: [facility] Address: [address] [place] [address] Performed By: #### 5 7021-8 #### [facility] CLIA [id number] [address] [place] [address] [place] Polychromasia LM Ql (Bld) Slight Normal [facility] Comment on above: Order Comment: Speci men Type: BLOOD SPECIMEN Ordering Facility: [facility] Address: [address] [place] [address] Performed By: #### 5 7021-8 #### [facility] CLIA [id number] [address] [place], [place] [address] [place] RBC (Bld) [#/Vol] 4.34 10*6/uL Normal 3.90-5.20 [facility] Comment on above: Order Comment: Speci men Type: BLOOD SPECIMEN Ordering Facility: [facility] Address: [address] [place] [address] Performed By: #### 5 7021-8 #### [facility] CLIA [id number] [address] [place] [address] [place] RED CELL MORPH Reviewed: see result s of individual morphologies Normal [facility] Comment on above: Order Comment: Speci men Type: BLOOD SPECIMEN Ordering Facility: [facility] Address: [address] [place] [address] Performed By: #### 5 7021-8 #### [facility] CLIA [id number] [address] [place] [address] [place] Target cells LM Ql (Bld) Few Normal [facility] Comment on above: Order Comment: Speci men Type: BLOOD SPECIMEN Ordering Facility: [facility] Address: [address] [place] [address] Performed By: #### 5 7021-8 #### [facility] CLIA [id number] [address] [place] [address] [place] WBC (Bld) [#/Vol] 25.58 10*3/uL High 3.70-11.00 [facility] Comment on above: Order Comment: Speci men Type: BLOOD SPECIMEN Ordering Facility: [facility] Address: [address] [place] [address] Performed By: #### 5 7021-8 #### [facility] CLIA [id number] [address] [place] [address] [place] WBC Left Shift Ql (Bld) Present Normal [facility] Comment on above: Order Comment: Speci men Type: BLOOD SPECIMEN Ordering Facility: [facility] Address: [address] [place] [address] Performed By: #### 5 7021-8 #### [facility] CLIA [id number] [address] [place] [address] [place] CNOVon 12-19-2024 CNOV Office Visit (FAMPWS ) -------- GRACIE BANUELOS ([id number]) 1965 F Date Time Provider Department 12/19/24 2:40 PM TARA YOUNGBLOOD During your visit today, we recorded the following information about you: Pulse Respiration Blood pressure Weight 103/minute 16/minute 118/62 62.1 kg Tara Youngblood, [employer]ES MARKET[employer].COMPANY MARKER 12/19/2024 3:33 PM Signed Chief Complaint Patient presents with: hospital f/up HPI Gracie Banuelos is a 59 year old female who presents here today for Above Complaints. Gracie is an established patient of Dr. Satnam MD. Concerns today.. Hospital follow-up--- [facility] admission from 12/04-12/12 d/t acute [...] help her quit. Dr. Sebastian is her line mechanic. Chronic recurrent pancreatitis -- had recent surgery [...] airways disease (HCC) Alcohol dependence in remission ([facility]) 07/10/2015 Alcohol use disorder 08/27/2017 Alcohol-induced pancreatitis Alcoholic hepatitis 05/18/2012 Alcoholic liver disease ([facility]) 11/16/2013 Anemia Anxiety with depression Arthritis Asthma Chronic hypoxemic respiratory failure (HCC) COPD (chronic obstructive pulmonary disease) ([facility]) 05/25/2012 DDD (degenerative disc disease), cervical 09/03/2018 [...] to infectious organism 2017 Severe protein-calorie malnutrition ([facility]) 01/07/2019 Stage 3 severe COPD by GOLD classification ([facility]) 2018 Tobacco use greater than 30 years [...] Other: See (more content not included)... [facility] (INTMWS[facility] -------- GRACIE BANUELOS ([id number]) 1965 F Date Time Provider Department 12/19/24 MISBAH ELKINS INTMWS During your visit today, we recorded the following information about you: Marge Perkins RN 12/19/2024 6:52 PM Signed Pt called in for x-ray results. I let Pt know they are not back in yet and provider would call her when they are. Soila Easton APRN.IGOR 12/22/2024 8:08 AM Signed I am assuming [...] Date Reviewed: 12/19/2024 Reviewed by: Tara Youngblood APRN.COMPANY MARKER - Fully Assessed Reason for Visit: Results [...] stress female [N39.3] 11/24/2014 HPV test positive [[id number]] 11/24/2014 Alcohol dependence in remission (HCC) [F10.21] [...] Status:Hiral (more content not included)... Normal [facility] Comprehensive metabolic 2000 panelon 12-19-2024 Albumin [Mass/Vol] 3.6 g/dL Low 3.9-4.9 [facility] Comment on above: Order Comment: Speci men Type: BLOOD SPECIMEN Ordering Facility: [facility] Address: [address] [place] [address] Performed By: #### 2 4323-8, 3040-3 #### [facility] CLIA [id number] [address] [place] [address] [place] ALP [Catalytic activity/Vol] 97 U/L Normal 34-123 [facility] Comment on above: Order Comment: Speci men Type: BLOOD SPECIMEN Ordering Facility: [facility] Address: [address] [place] [address] Performed By: #### 2 4323-8, 3040-3 #### [facility] CLIA [id number] [address] [place] [address] [place] ALT [Catalytic activity/Vol] 16 U/L Normal 7-38 [facility] Comment on above: Order Comment: Speci men Type: BLOOD SPECIMEN Ordering Facility: [facility] Address: [address] [place] [address] Performed By: #### 2 4323-8, 3040-3 #### [facility] CLIA [id number] [address] [place] [address] [place] Anion gap [Moles/Vol] 13 mmol/L Normal 8-15 [facility] Comment on above: Order Comment: Speci men Type: BLOOD SPECIMEN Ordering Facility: [facility] Address: [address] [place] [address] Performed By: #### 2 4323-8, 3040-3 #### [facility] CLIA [id number] [address] [place], [place] [address] [place] AST [Catalytic activity/Vol] 14 U/L Normal 13-35 [facility] Comment on above: Order Comment: Speci men Type: BLOOD SPECIMEN Ordering Facility: [facility] Address: [address] [place] [address] Performed By: #### 2 4323-8, 3039-3 #### [facility] CLIA [id number] [address] [place] [address] [place] Bilirubin [Mass/Vol] 0.3 mg/dL Normal 0.2-1.3 [facility] Comment on above: Order Comment: Speci men Type: BLOOD SPECIMEN Ordering Facility: [facility] Address: [address] [place] [address] Performed By: #### 2 4323-8, 3039-3 #### [facility] CLIA [id number] [address] [place] [address] [place] Calcium [Mass/Vol] 8.9 mg/dL Normal 8.5-10.2 [facility] Comment on above: Order Comment: Speci men Type: BLOOD SPECIMEN Ordering Facility: [facility] Address: [address] [place] [address] Performed By: #### 2 4323-8, 3039-3 #### [facility] CLIA [id number] [address] [place] [address] [place] Chloride [Moles/Vol] 97 mmol/L Low 98-107 [facility] Comment on above: Order Comment: Speci men Type: BLOOD SPECIMEN Ordering Facility: [facility] Address: [address] [place] [address] Performed By: #### 2 4323-8, 3039-3 #### [facility] CLIA [id number] [address] [place] [address] [place] CO2 [Moles/Vol] 30 mmol/L Normal 22-30 [facility] Comment on above: Order Comment: Speci men Type: BLOOD SPECIMEN Ordering Facility: [facility] Address: [address] [place] [address] Performed By: #### 2 4323-8, 3040-3 #### [facility] CLIA [id number] [address] [place] [address] [place] Creatinine [Mass/Vol] 0.81 mg/dL Normal 0.58-0.96 [facility] Comment on above: Order Comment: Reggie fajardo Type: BLOOD SPECIMEN Ordering Facility: [facility] Address: [address] [place] [address] Performed By: #### 2 4323-8, 0-3 #### [facility] CLIA [id number] [address] [place] [address] [place] Creatinine and Glomerular filtration rate.predicted panel (S/P/Bld) 83 mL/min/1.73m??? Normal >=60 [facility] Comment on above: Order Comment: Reggie fajardo Type: BLOOD SPECIMEN Ordering Facility: [facility] Address: [address] [place] [address] Result Comment: Pavan mated Glomerular Filtration Rate [...] GFR. Performed By: #### 2 4323-8, 3039-3 #### [facility] CLIA [id number] [address] [place] [address] [place] Glucose [Mass/Vol] 86 mg/dL Normal 74-99 [facility] Comment on above: Order Comment: Reggie fajardo Type: BLOOD SPECIMEN Ordering Facility: [facility] Address: [address] [place] [address] Result Comment: The [place] [employer] (ADA) provides guidance for cutoff [...] Standards of Medical Care in Diabetes 2016, [place] [employer]. Diabetes Care. 2016.39(Suppl 1). Performed By: #### 2 4323-8, 3039-3 #### [facility] CLIA [id number] [address] [place] [address] [place] Potassium [Moles/Vol] 4.0 mmol/L Normal 3.7-5.1 [facility] Comment on above: Order Comment: Speci men Type: BLOOD SPECIMEN Ordering Facility: [facility] Address: [address] [place] [address] Performed By: #### 2 4323-8, 3039-3 #### [facility] CLIA [id number] [address] [place] [address] [place] Protein [Mass/Vol] 6.1 g/dL Low 6.3-8.0 [facility] Comment on above: Order Comment: Speci men Type: BLOOD SPECIMEN Ordering Facility: [facility] Address: [address] [place], [place] [id number] Performed By: #### 2 4323-8, 3039-3 #### [facility] CLIA [id number] [address] [place], [place] [id number] [place] Sodium [Moles/Vol] 140 mmol/L Normal 136-144 [facility] Comment on above: Order Comment: Speci men Type: BLOOD SPECIMEN Ordering Facility: [facility] Address: [address] [place] [address] Performed By: #### 2 4323-8, 0-3 #### [facility] CLIA [id number] [address] [place] [id number] [place] Urea nitrogen [Mass/Vol] 8 mg/dL Normal 7-21 [facility] Comment on above: Order Comment: Speci men Type: BLOOD SPECIMEN Ordering Facility: [facility] Address: [address] [place] [address] Performed By: #### 2 4323-8, 3040-3 #### [facility] CLIA [id number] [address] [place] [address] [place] Lipase SerPl-cCncon 12-20-19 25 Lipase [Catalytic activity/Vol] 32 U/L Normal 16-61 [facility] Comment on above: Order Comment: Kettyi men Type: BLOOD SPECIMEN Ordering Facility: [facility] Address: [address] [place] [address] Performed By: #### 2 4323-8, 3040-3 #### [facility] CLIA [id number] [address] [place] [address] [place] XR CHEST 2V [...] tissues: Unremarkable. IMPRESSION: No acute radiographic abnormality. Simulation Educator: BABATUNDE Transcribe Date/Time: Dec 21 2024 4:06P Dictated by : JEAN-CLAUDE MANRIQUEZ MD This examination was interpreted and the report reviewed and electronically signed by: JEAN-CLAUDE MANRIQUEZ MD on Dec 21 2024 4:07PM EST [id number] Normal [facility] Basic Metabolic Profile (BMP )on 12-17-2024 BUN Normal 4-19 [facility] Comment on above: Result Comment: Canc elled via OM: Order cancelled - Patient discharged Performed By: #### L 100.0100, L500.2500 ####[facility] [address] [place], [address] BUN/CRE Normal 10-20 [facility] Comment on above: Result Comment: Canc elled via OM: Order cancelled - Patient discharged Performed By: #### L 100.0100, L500.2500 ####[facility] [address] [place], [address] Calcium Normal 7.6-11.0 [facility] Comment on above: Result Comment: Canc elled via OM: Order cancelled - Patient discharged Performed By: #### L 100.0100, L500.2500 ####[facility] [address] [place], [address] CL Normal 98-108 [facility] Comment on above: Result Comment: Canc elled via OM: Order cancelled - Patient discharged Performed By: #### L 100.0100, L500.2500 ####[facility] [address] [place], [address] CO2 Normal 21.0-32.0 [facility] Comment on above: Result Comment: Canc elled via OM: Order cancelled - Patient discharged Performed By: #### L 100.0100, L500.2500 ####[facility] [address] [place], [address] CREAT,SERUM Normal 0.70-1.20 [facility] Comment on above: Result Comment: Canc elled via OM: Order cancelled - Patient discharged Performed By: #### L 100.0100, L500.2500 ####[facility] [address] [place], [address] eGFR Normal >60 [facility] Comment on above: Result Comment: Canc elled via OM: Order cancelled - Patient discharged Performed By: #### L 100.0100, L500.2500 ####[facility] [address] [place], [address] GAP Normal 5-15 [facility] Comment on above: Result Comment: Canc elled via OM: Order cancelled - Patient discharged Performed By: #### L 100.0100, L500.2500 ####[facility] [address] [place], [address] GLU Normal 70-99 [facility] Comment on above: Result Comment: Canc elled via OM: Order cancelled - Patient discharged Performed By: #### L 100.0100, L500.2500 ####[facility] [address] [place], [address] Potassium Normal 3.3-5.1 [facility] Comment on above: Result Comment: Canc elled via OM: Order cancelled - Patient discharged Performed By: #### L 100.0100, L500.2500 ####[facility] [address] [place], [address] Basic Metabolic Profile (BMP) Normal 133-145 [facility] Comment on above: Result Comment: Canc elled via OM: Order cancelled - Patient discharged Performed By: #### L 100.0100, L500.2500 ####[facility] [address] [place], [address] CBC W/Diff, Automatedon - Absolute Neut Normal 2.0-7.7 [facility] Comment on above: Result Comment: Canc elled via OM: Order cancelled - Patient discharged Performed By: #### L 100.0100, L500.2500 ####[facility] [address] [place], [address] HCT Normal 37-47 [facility] Comment on above: Result Comment: Canc elled via OM: Order cancelled - Patient discharged Performed By: #### L 100.0100, L500.2500 ####[facility] [address] [place], [address] HGB Normal 12.0-15.0 [facility] Comment on above: Result Comment: Canc elled via OM: Order cancelled - Patient discharged Performed By: #### L 100.0100, L500.2500 ####[facility] [address] [place], [address] MCH Normal 27.0-32.0 [facility] Comment on above: Result Comment: Canc elled via OM: Order cancelled - Patient discharged Performed By: #### L 100.0100, L500.2500 ####[facility] [address] [place], [address] MCHC Normal 32-36 [facility] Comment on above: Result Comment: Canc elled via OM: Order cancelled - Patient discharged Performed By: #### L 100.0100, L500.2500 ####[facility] [address] [place], [address] MCV Normal 81-99 [facility] Comment on above: Result Comment: Canc elled via OM: Order cancelled - Patient discharged Performed By: #### L 100.0100, L500.2500 ####[facility] [address] [place], [address] NEUT% Normal 47-70 [facility] Comment on above: Result Comment: Canc elled via OM: Order cancelled - Patient discharged Performed By: #### L 100.0100, L500.2500 ####[facility] [address] [place], [address] PLT Normal 150-450 [facility] Comment on above: Result Comment: Canc elled via OM: Order cancelled - Patient discharged Performed By: #### L 100.0100, L500.2500 ####[facility] [address] [place], [address] RBC Normal 4.2-5.4 [facility] Comment on above: Result Comment: Canc elled via OM: Order cancelled - Patient discharged Performed By: #### L 100.0100, L500.2500 ####[facility] [address] [place], [address] RDW CV Normal 11.6-14.6 [facility] Comment on above: Result Comment: Canc elled via OM: Order cancelled - Patient discharged Performed By: #### L 100.0100, L500.2500 ####[facility] [address] [place], [address] RDW SD Normal 35.1-43.9 [facility] Comment on above: Result Comment: Canc elled via OM: Order cancelled - Patient discharged Performed By: #### L 100.0100, L500.2500 ####[facility] [address] [place], [address] WBC Normal 4.4-11.0 [facility] Comment on above: Result Comment: Canc elled via OM: Order cancelled - Patient discharged Performed By: #### L 100.0100, L500.2500 ####[facility] [address] [place], [address] Basic Metabolic Profile (BMP )on 12-16-2024 BUN Normal 4-19 [facility] Comment on above: Result Comment: Canc elled via OM: Order cancelled - Patient discharged Performed By: #### L 500.2500, L100.0100 ####[facility] [address] [place], [address] BUN/CRE Normal 10-20 [facility] Comment on above: Result Comment: Canc elled via OM: Order cancelled - Patient discharged Performed By: #### L 500.2500, L100.0100 ####[facility] [address] [place], [address] Calcium Normal 7.6-11.0 [facility] Comment on above: Result Comment: Canc elled via OM: Order cancelled - Patient discharged Performed By: #### L 500.2500, L100.0100 ####[facility] [address] [place], [address] CL Normal 98-108 [facility] Comment on above: Result Comment: Canc elled via OM: Order cancelled - Patient discharged Performed By: #### L 500.2500, L100.0100 ####[facility] [address] [place], [address] CO2 Normal 21.0-32.0 [facility] Comment on above: Result Comment: Canc elled via OM: Order cancelled - Patient discharged Performed By: #### L 500.2500, L100.0100 ####[facility] [address] [place], [address] CREAT,SERUM Normal 0.70-1.20 [facility] Comment on above: Result Comment: Canc elled via OM: Order cancelled - Patient discharged Performed By: #### L 500.2500, L100.0100 ####[facility] [address] [place], [address] eGFR Normal >60 [facility] Comment on above: Result Comment: Canc elled via OM: Order cancelled - Patient discharged Performed By: #### L 500.2500, L100.0100 ####[facility] [address] [place], [address] GAP Normal 5-15 [facility] Comment on above: Result Comment: Canc elled via OM: Order cancelled - Patient discharged Performed By: #### L 500.2500, L100.0100 ####[facility] [address] [place], [address] GLU Normal 70-99 [facility] Comment on above: Result Comment: Canc elled via OM: Order cancelled - Patient discharged Performed By: #### L 500.2500, L100.0100 ####[facility] [address] [place], [address] Potassium Normal 3.3-5.1 [facility] Comment on above: Result Comment: Canc elled via OM: Order cancelled - Patient discharged Performed By: #### L 500.2500, L100.0100 ####[facility] [address] [place], [address] Basic Metabolic Profile (BMP) Normal 133-145 [facility] Comment on above: Result Comment: Canc elled via OM: Order cancelled - Patient discharged Performed By: #### L 500.2500, L100.0100 ####[facility] [address] [place], [address] CBC W/Diff, Automatedon 03-2 Absolute Neut Normal 2.0-7.7 [facility] Comment on above: Result Comment: Canc elled via OM: Order cancelled - Patient discharged Performed By: #### L 500.2500, L100.0100 ####[facility] [address] [place], [address] HCT Normal 37-47 [facility] Comment on above: Result Comment: Canc elled via OM: Order cancelled - Patient discharged Performed By: #### L 500.2500, L100.0100 ####[facility] [address] [place], [address] HGB Normal 12.0-15.0 [facility] Comment on above: Result Comment: Canc elled via OM: Order cancelled - Patient discharged Performed By: #### L 500.2500, L100.0100 ####[facility] [address] [place], [address] MCH Normal 27.0-32.0 [facility] Comment on above: Result Comment: Canc elled via OM: Order cancelled - Patient discharged Performed By: #### L 500.2500, L100.0100 ####[facility] [address] [place], [address] MCHC Normal 32-36 [facility] Comment on above: Result Comment: Canc elled via OM: Order cancelled - Patient discharged Performed By: #### L 500.2500, L100.0100 ####[facility] [address] [place], [address] MCV Normal 81-99 [facility] Comment on above: Result Comment: Canc elled via OM: Order cancelled - Patient discharged Performed By: #### L 500.2500, L100.0100 ####[facility] [address] [place], [address] NEUT% Normal 47-70 [facility] Comment on above: Result Comment: Canc elled via OM: Order cancelled - Patient discharged Performed By: #### L 500.2500, L100.0100 ####[facility] [address] [place], [address] PLT Normal 150-450 [facility] Comment on above: Result Comment: Canc elled via OM: Order cancelled - Patient discharged Performed By: #### L 500.2500, L100.0100 ####[facility] [address] [place], [address] RBC Normal 4.2-5.4 [facility] Comment on above: Result Comment: Canc elled via OM: Order cancelled - Patient discharged Performed By: #### L 500.2500, L100.0100 ####[facility] [address] [place], [address] RDW CV Normal 11.6-14.6 [facility] Comment on above: Result Comment: Canc elled via OM: Order cancelled - Patient discharged Performed By: #### L 500.2500, L100.0100 ####[facility] [address] [place], [address] RDW SD Normal 35.1-43.9 [facility] Comment on above: Result Comment: Canc elled via OM: Order cancelled - Patient discharged Performed By: #### L 500.2500, L100.0100 ####[facility] [address] [place], [address] WBC Normal 4.4-11.0 [facility] Comment on above: Result Comment: Canc elled via OM: Order cancelled - Patient discharged Performed By: #### L 500.2500, L100.0100 ####[facility] [address] [place], [address] Gastroenterology Visit Repor ton 12-16-2024 Gastroenterology Visit Report Normal [facility] Basic Metabolic Profile (BMP )on 12-15-2024 BUN Normal -19 [facility] Comment on above: Result Comment: Canc elled via OM: Order cancelled - Patient discharged Performed By: #### L 500.2500, L100.0100 ####[facility] [address] [place], [address] BUN/CRE Normal -20 [facility] Comment on above: Result Comment: Canc elled via OM: Order cancelled - Patient discharged Performed By: #### L 500.2500, L100.0100 ####[facility] [address] [place], [address] Calcium Normal 7.6-11.0 [facility] Comment on above: Result Comment: Canc elled via OM: Order cancelled - Patient discharged Performed By: #### L 500.2500, L100.0100 ####[facility] [address] [place], [address] CL Normal 98-108 [facility] Comment on above: Result Comment: Canc elled via OM: Order cancelled - Patient discharged Performed By: #### L 500.2500, L100.0100 ####[facility] [address] [place], [address] CO2 Normal 21.0-32.0 [facility] Comment on above: Result Comment: Canc elled via OM: Order cancelled - Patient discharged Performed By: #### L 500.2500, L100.0100 ####[facility] [address] [place], [address] CREAT,SERUM Normal 0.70-1.20 [facility] Comment on above: Result Comment: Canc elled via OM: Order cancelled - Patient discharged Performed By: #### L 500.2500, L100.0100 ####[facility] [address] [place], [address] eGFR Normal >60 [facility] Comment on above: Result Comment: Canc elled via OM: Order cancelled - Patient discharged Performed By: #### L 500.2500, L100.0100 ####[facility] [address] [place], [address] GAP Normal 5-15 [facility] Comment on above: Result Comment: Canc elled via OM: Order cancelled - Patient discharged Performed By: #### L 500.2500, L100.0100 ####[facility] [address] [place], [address] GLU Normal 70-99 [facility] Comment on above: Result Comment: Canc elled via OM: Order cancelled - Patient discharged Performed By: #### L 500.2500, L100.0100 ####[facility] [address] [place], [address] Potassium Normal 3.3-5.1 [facility] Comment on above: Result Comment: Canc elled via OM: Order cancelled - Patient discharged Performed By: #### L 500.2500, L100.0100 ####[facility] [address] [place], [address] Basic Metabolic Profile (BMP) Normal 133-145 [facility] Comment on above: Result Comment: Canc elled via OM: Order cancelled - Patient discharged Performed By: #### L 500.2500, L100.0100 ####[facility] [address] [place], [address] CBC W/Diff, Automatedon 11-27-2024 Absolute Neut Normal 2.0-7.7 [facility] Comment on above: Result Comment: Canc elled via OM: Order cancelled - Patient discharged Performed By: #### L 500.2500, L100.0100 ####[facility] [address] [place], [address] HCT Normal 37-47 [facility] Comment on above: Result Comment: Canc elled via OM: Order cancelled - Patient discharged Performed By: #### L 500.2500, L100.0100 ####[facility] [address] [place], [address] HGB Normal 12.0-15.0 [facility] Comment on above: Result Comment: Canc elled via OM: Order cancelled - Patient discharged Performed By: #### L 500.2500, L100.0100 ####[facility] [address] [place], [address] MCH Normal 27.0-32.0 [facility] Comment on above: Result Comment: Canc elled via OM: Order cancelled - Patient discharged Performed By: #### L 500.2500, L100.0100 ####[facility] [address] [place], [address] MCHC Normal 32-36 [facility] Comment on above: Result Comment: Canc elled via OM: Order cancelled - Patient discharged Performed By: #### L 500.2500, L100.0100 ####[facility] [address] [place], [address] MCV Normal 81-99 [facility] Comment on above: Result Comment: Canc elled via OM: Order cancelled - Patient discharged Performed By: #### L 500.2500, L100.0100 ####[facility] [address] [place], [address] NEUT% Normal 47-70 [facility] Comment on above: Result Comment: Canc elled via OM: Order cancelled - Patient discharged Performed By: #### L 500.2500, L100.0100 ####[facility] [address] [place], [address] PLT Normal 150-450 [facility] Comment on above: Result Comment: Canc elled via OM: Order cancelled - Patient discharged Performed By: #### L 500.2500, L100.0100 ####[facility] [address] [place], [address] RBC Normal 4.2-5.4 [facility] Comment on above: Result Comment: Canc elled via OM: Order cancelled - Patient discharged Performed By: #### L 500.2500, L100.0100 ####[facility] [address] [place], [address] RDW CV Normal 11.6-14.6 [facility] Comment on above: Result Comment: Canc elled via OM: Order cancelled - Patient discharged Performed By: #### L 500.2500, L100.0100 ####[facility] [address] [place], [address] RDW SD Normal 35.1-43.9 [facility] Comment on above: Result Comment: Canc elled via OM: Order cancelled - Patient discharged Performed By: #### L 500.2500, L100.0100 ####[facility] [address] [place], [address] WBC Normal 4.4-11.0 [facility] Comment on above: Result Comment: Canc elled via OM: Order cancelled - Patient discharged Performed By: #### L 500.2500, L100.0100 ####[facility] [address] [place], [address] Basic Metabolic Profile (BMP )on 12-14-2024 BUN Normal 4-19 [facility] Comment on above: Result Comment: Canc elled via OM: Order cancelled - Patient discharged Performed By: #### L 100.0100, L500.2500 ####[facility] [address] [place], [address] BUN/CRE Normal 10-20 [facility] Comment on above: Result Comment: Canc elled via OM: Order cancelled - Patient discharged Performed By: #### L 100.0100, L500.2500 ####[facility] [address] [place], [address] Calcium Normal 7.6-11.0 [facility] Comment on above: Result Comment: Canc elled via OM: Order cancelled - Patient discharged Performed By: #### L 100.0100, L500.2500 ####[facility] [address] [place], [address] CL Normal 98-108 [facility] Comment on above: Result Comment: Canc elled via OM: Order cancelled - Patient discharged Performed By: #### L 100.0100, L500.2500 ####[facility] [address] [place], [address] CO2 Normal 21.0-32.0 [facility] Comment on above: Result Comment: Canc elled via OM: Order cancelled - Patient discharged Performed By: #### L 100.0100, L500.2500 ####[facility] [address] [place], [address] CREAT,SERUM Normal 0.70-1.20 [facility] Comment on above: Result Comment: Canc elled via OM: Order cancelled - Patient discharged Performed By: #### L 100.0100, L500.2500 ####[facility] [address] [place], [address] eGFR Normal >60 [facility] Comment on above: Result Comment: Canc elled via OM: Order cancelled - Patient discharged Performed By: #### L 100.0100, L500.2500 ####[facility] [address] [place], [address] GAP Normal 5-15 [facility] Comment on above: Result Comment: Canc elled via OM: Order cancelled - Patient discharged Performed By: #### L 100.0100, L500.2500 ####[facility] [address] [place], [address] GLU Normal 70-99 [facility] Comment on above: Result Comment: Canc elled via OM: Order cancelled - Patient discharged Performed By: #### L 100.0100, L500.2500 ####[facility] [address] [place], [address] Potassium Normal 3.3-5.1 [facility] Comment on above: Result Comment: Canc elled via OM: Order cancelled - Patient discharged Performed By: #### L 100.0100, L500.2500 ####[facility] [address] [place], [address] Basic Metabolic Profile (BMP) Normal 133-145 [facility] Comment on above: Result Comment: Canc elled via OM: Order cancelled - Patient discharged Performed By: #### L 100.0100, L500.2500 ####[facility] [address] [place], [address] CBC W/Diff, Automatedon 03- Absolute Neut Normal 2.0-7.7 [facility] Comment on above: Result Comment: Canc elled via OM: Order cancelled - Patient discharged Performed By: #### L 100.0100, L500.2500 ####[facility] [address] [place], [address] HCT Normal 37-47 [facility] Comment on above: Result Comment: Canc elled via OM: Order cancelled - Patient discharged Performed By: #### L 100.0100, L500.2500 ####[facility] [address] [place], [address] HGB Normal 12.0-15.0 [facility] Comment on above: Result Comment: Canc elled via OM: Order cancelled - Patient discharged Performed By: #### L 100.0100, L500.2500 ####[facility] [address] [place], [address] MCH Normal 27.0-32.0 [facility] Comment on above: Result Comment: Canc elled via OM: Order cancelled - Patient discharged Performed By: #### L 100.0100, L500.2500 ####[facility] [address] [place], [address] MCHC Normal 32-36 [facility] Comment on above: Result Comment: Canc elled via OM: Order cancelled - Patient discharged Performed By: #### L 100.0100, L500.2500 ####[facility] [address] [place], [address] MCV Normal 81-99 [facility] Comment on above: Result Comment: Canc elled via OM: Order cancelled - Patient discharged Performed By: #### L 100.0100, L500.2500 ####[facility] [address] [place], [address] NEUT% Normal 47-70 [facility] Comment on above: Result Comment: Canc elled via OM: Order cancelled - Patient discharged Performed By: #### L 100.0100, L500.2500 ####[facility] [address] [place], [address] PLT Normal 150-450 [facility] Comment on above: Result Comment: Canc elled via OM: Order cancelled - Patient discharged Performed By: #### L 100.0100, L500.2500 ####[facility] [address] [place], [address] RBC Normal 4.2-5.4 [facility] Comment on above: Result Comment: Canc elled via OM: Order cancelled - Patient discharged Performed By: #### L 100.0100, L500.2500 ####[facility] [address] [place], [address] RDW CV Normal 11.6-14.6 [facility] Comment on above: Result Comment: Canc elled via OM: Order cancelled - Patient discharged Performed By: #### L 100.0100, L500.2500 ####[facility] [address] [place], [address] RDW SD Normal 35.1-43.9 [facility] Comment on above: Result Comment: Canc elled via OM: Order cancelled - Patient discharged Performed By: #### L 100.0100, L500.2500 ####[facility] [address] [place], [address] WBC Normal 4.4-11.0 [facility] Comment on above: Result Comment: Canc elled via OM: Order cancelled - Patient discharged Performed By: #### L 100.0100, L500.2500 ####[facility] [address] [place], [address] Basic Metabolic Profile (BMP )on 12-13-2024 BUN Normal 4-19 [facility] Comment on above: Result Comment: Canc elled via OM: Order cancelled - Patient discharged Performed By: #### L 100.0100, L500.2500 ####[facility] [address] [place], [address] BUN/CRE Normal 10-20 [facility] Comment on above: Result Comment: Canc elled via OM: Order cancelled - Patient discharged Performed By: #### L 100.0100, L500.2500 ####[facility] [address] [place], [address] Calcium Normal 7.6-11.0 [facility] Comment on above: Result Comment: Canc elled via OM: Order cancelled - Patient discharged Performed By: #### L 100.0100, L500.2500 ####[facility] [address] [place], [address] CL Normal 98-108 [facility] Comment on above: Result Comment: Canc elled via OM: Order cancelled - Patient discharged Performed By: #### L 100.0100, L500.2500 ####[facility] [address] [place], [address] CO2 Normal 21.0-32.0 [facility] Comment on above: Result Comment: Canc elled via OM: Order cancelled - Patient discharged Performed By: #### L 100.0100, L500.2500 ####[facility] [address] [place], [address] CREAT,SERUM Normal 0.70-1.20 [facility] Comment on above: Result Comment: Canc elled via OM: Order cancelled - Patient discharged Performed By: #### L 100.0100, L500.2500 ####[facility] [address] [place], [address] eGFR Normal >60 [facility] Comment on above: Result Comment: Canc elled via OM: Order cancelled - Patient discharged Performed By: #### L 100.0100, L500.2500 ####[facility] [address] [place], [address] GAP Normal 5-15 [facility] Comment on above: Result Comment: Canc elled via OM: Order cancelled - Patient discharged Performed By: #### L 100.0100, L500.2500 ####[facility] [address] [place], [address] GLU Normal 70-99 [facility] Comment on above: Result Comment: Canc elled via OM: Order cancelled - Patient discharged Performed By: #### L 100.0100, L500.2500 ####[facility] [address] [place], [address] Potassium Normal 3.3-5.1 [facility] Comment on above: Result Comment: Canc elled via OM: Order cancelled - Patient discharged Performed By: #### L 100.0100, L500.2500 ####[facility] [address] [place], [address] Basic Metabolic Profile (BMP) Normal 133-145 [facility] Comment on above: Result Comment: Canc elled via OM: Order cancelled - Patient discharged Performed By: #### L 100.0100, L500.2500 ####[facility] [address] [place], [address] CBC W/Diff, Automatedon - Absolute Neut Normal 2.0-7.7 [facility] Comment on above: Result Comment: Canc elled via OM: Order cancelled - Patient discharged Performed By: #### L 100.0100, L500.2500 ####[facility] [address] [place], [address] HCT Normal 37-47 [facility] Comment on above: Result Comment: Canc elled via OM: Order cancelled - Patient discharged Performed By: #### L 100.0100, L500.2500 ####[facility] [address] [place], [address] HGB Normal 12.0-15.0 [facility] Comment on above: Result Comment: Canc elled via OM: Order cancelled - Patient discharged Performed By: #### L 100.0100, L500.2500 ####[facility] [address] [place], [address] MCH Normal 27.0-32.0 [facility] Comment on above: Result Comment: Canc elled via OM: Order cancelled - Patient discharged Performed By: #### L 100.0100, L500.2500 ####[facility] [address] [place], [address] MCHC Normal 32-36 [facility] Comment on above: Result Comment: Canc elled via OM: Order cancelled - Patient discharged Performed By: #### L 100.0100, L500.2500 ####[facility] [address] [place], [address] MCV Normal 81-99 [facility] Comment on above: Result Comment: Canc elled via OM: Order cancelled - Patient discharged Performed By: #### L 100.0100, L500.2500 ####[facility] [address] [place], [address] NEUT% Normal 47-70 [facility] Comment on above: Result Comment: Canc elled via OM: Order cancelled - Patient discharged Performed By: #### L 100.0100, L500.2500 ####[facility] [address] [place], [address] PLT Normal 150-450 [facility] Comment on above: Result Comment: Canc elled via OM: Order cancelled - Patient discharged Performed By: #### L 100.0100, L500.2500 ####[facility] [address] [place], [address] RBC Normal 4.2-5.4 [facility] Comment on above: Result Comment: Canc elled via OM: Order cancelled - Patient discharged Performed By: #### L 100.0100, L500.2500 ####[facility] [address] [place], [address] RDW CV Normal 11.6-14.6 [facility] Comment on above: Result Comment: Canc elled via OM: Order cancelled - Patient discharged Performed By: #### L 100.0100, L500.2500 ####[facility] [address] [place], [address] RDW SD Normal 35.1-43.9 [facility] Comment on above: Result Comment: Canc elled via OM: Order cancelled - Patient discharged Performed By: #### L 100.0100, L500.2500 ####[facility] [address] [place], [address] WBC Normal 4.4-11.0 [facility] Comment on above: Result Comment: Canc elled via OM: Order cancelled - Patient discharged Performed By: #### L 100.0100, L500.2500 ####[facility] [address] [place], [address] Respiratory Cultureon 2024 RESPC Mixed normal respira tory benjie. No Streptococcus pneumoniae, beta-hemolytic Streptococcus or Staphylococcus aureus isolated. Normal [facility] Comment on above: Performed By: #### M 100.2000, M100.2400 ####[facility] [address] [place], [address] Absolute lymphocyte countOrd ered By: Anastacia Bonilla on 12-12-2024 Lymphocytes Auto (Unsp spec) [#/Vol] 4.36 10*3/uL 0.83-4.51 [facility] Absolute neutrophil countOrd ered By: Anastacia Bonilla on 12-12-2024 Neutrophils (Bld) [#/Vol] 17.2 10*3/uL High 2.0-7.7 [facility] Absolute neutrophil count 17.2 X10^3/uL High 2.0-7.7 [facility] Anion gap [Moles/Vol]Ordered By: Anastaciagerri Bonilla on 12-12-2024 Anion gap in Serum or Plasma 8 02-09 [facility] Anion gap in Serum or Plasma Ordered By: Anastacia Bonilla on 12-12-2024 Anion gap [Moles/Vol] 8 mmol/L 02-09 [facility] BUN/creatinine ratioOrdered By: Anastaciagerri Bonilla on 12-12-2024 Urea nitrogen/Creatinine [Mass ratio] 32.0 mg/mg High 07-17 [facility] BUN/creatinine ratio 32.0 RATIO High 07-17 [facility] Band form neutrophils/100 WB C (Bld)Ordered By: Anastacia Bonilla on 12-12-2024 Blood band neutrophil count as percentage of total leukocytes 2 % 0- [facility] Basic Metabolic Profile (BMP )on 12-12-2024 BUN/CRE 32.0 RATIO High 07-17 [facility] Comment on above: Performed By: #### L 500.2500, L100.0100 ####[facility] [address] [place], [address] Calcium [Mass/Vol] 8.9 mg/dL Normal 7.6-11.0 [facility] Comment on above: Performed By: #### L 500.2500, L100.0100 ####[facility] [address] [place], [address] Chloride [Moles/Vol] 95 mmol/L Low 98-108 [facility] Comment on above: Performed By: #### L 500.2500, L100.0100 ####[facility] [address] [place], [address] CO2 [Moles/Vol] 34.4 mmol/L High 21.0-32.0 [facility] Comment on above: Performed By: #### L 500.2500, L100.0100 ####[facility] [address] [place], [address] Creatinine [Mass/Vol] 0.77 mg/dL Normal 0.70-1.20 [facility] Comment on above: Performed By: #### L 500.2500, L100.0100 ####[facility] [address] [place], [address] ECRCL 63.47 ml/min Normal 50-250 [facility] Comment on above: Performed By: #### L 500.2500, L100.0100 ####[facility] [address] [place], [address] GAP 8 Normal 5-15 [facility] Comment on above: Performed By: #### L 500.2500, L100.0100 ####[facility] [address] [place], [address] GFR/1.73 sq M.predicted among non-blacks MDRD (S/P/Bld) [Vol rate/Area] 87 mL/min/{1.73_m2} Normal >60 [facility] Comment on above: Result Comment: mL/m in/1.73m2 CKD-EPI Creatinine Equation (2020) Performed By: #### L 500.2500, L100.0100 ####[facility] [address] [place], [address] Glucose [Mass/Vol] 80 mg/dL Normal 70-99 [facility] Comment on above: Performed By: #### L 500.2500, L100.0100 ####[facility] [address] [place], [address] Potassium [Moles/Vol] 4.1 mmol/L Normal 3.3-5.1 [facility] Comment on above: Performed By: #### L 500.2500, L100.0100 ####[facility] [address] [place], [address] Sodium [Moles/Vol] 137 mmol/L Normal 133-145 [facility] Comment on above: Performed By: #### L 500.2500, L100.0100 ####[facility] [address] [place], [address] Urea nitrogen [Mass/Vol] 25 mg/dL High 4-19 [facility] Comment on above: Performed By: #### L 500.2500, L100.0100 ####[facility] [address] [facility] [place], [address] Blood band neutrophil count as percentage of total leukocytesOrdered By: Anastacia Bonilla on 12-12-2024 Band form neutrophils/100 WBC (Bld) 2 % 0-5 [facility] Blood lymphocytes/100 leukoc ytesOrdered By: Anastacia Bonilla on 12-12-2024 Lymphocytes/100 WBC (Bld) 17 % Low 19-41 [facility] Blood manual differential co mment interpretation (narrative result)Ordered By: Anastacia Bonilla on 12-12-2024 Manual differential comment Geovany (Bld) [Interp] SCANNED [facility] Blood metamyelocytes/100 scott kocytesOrdered By: Anastacia Bonilla on 12-12-2024 Metamyelocytes/100 WBC (Bld) 1 % 0-1 [facility] Blood monocytes/100 leukocyt esOrdered By: Anastacia Bonilla on 12-12-2024 Monocytes/100 WBC (Bld) 5 % 0-10 [facility] Blood segmented neutrophils/ 100 leukocytesOrdered By: Anastacia Bonilla on 12-12-2024 Segmented neutrophils/100 WBC (Bld) 65 % 47-70 [facility] Calcium [Mass/Vol]Ordered By : Anastacia Bonilla on 12-12-2024 Serum or plasma calcium measurement (mass/volume) 8.9 mg/dL 7.6-11.0 [facility] Carbon dioxide, total [Moles /volume] in Central venous bloodOrdered By: Anastacia Bonilla on 12-12-2024 CO2 [Moles/Vol] 34.4 mmol/L High 21.0-32.0 [facility] Carbon dioxide, total [Moles/volume] in Central venous blood 34.4 mmol/L High 21.0-32.0 [facility] Cells counted Molgen (Bld/Ti ss) [#]Ordered By: Anastacia Bonilla on 12-12-2024 Differential Total Cells Counted 100 MANUAL DIFF [facility] Total cell count 100 MANUAL DIFF [facility] Chloride assayOrdered By: Emily Bonilla on 12-12-2024 Chloride [Moles/Vol] 95 mmol/L Low 98-108 [facility] Chloride assay 95 mmol/L Low 98-108 [facility] Creatinine [Mass/Vol]Ordered By: Anastacia Bonilla on 12-12-2024 Serum creatinine measurement (mass/volume) 0.77 mg/dL 0.70-1.20 [facility] Discharge Instructionon 11-26 Discharge Instruction Normal [facility] EGD Reporton 12-12-2024 EGD Report Normal [facility] Erythrocyte distribution wid th (RBC) [Ratio]Ordered By: Anastacia Bonilla on 12-12-2024 Erythrocyte distribution width ratio 14.6 % 11.6-14.6 [facility] Erythrocyte distribution wid th ratioOrdered By: Anastacia Bonilla on 12-12-2024 Erythrocyte distribution width (RBC) [Ratio] 14.6 % 11.6-14.6 [facility] Erythrocyte distribution wid th standard deviationOrdered By: Anastacia Bonilla on 12-12-2024 Erythrocyte distribution width (RBC) [Entitic vol] 46.5 fL High 35.1-43.9 [facility] Erythrocyte distribution width (RBC) [Ratio] 46.5 fl High 35.1-43.9 [facility] Erythrocyte distribution width standard deviation 46.5 fl High 35.1-43.9 [facility] Estimation of creatinine binu aranceOrdered By: Anastacia Bonilla on 12-12-2024 Estimated Creatinine Clearance Calc 63.47 ml/min 50-250 [facility] Estimation of creatinine clearance 63.47 ml/min 50-250 [facility] GFR/1.73 sq M.predicted gregory g non-blacks MDRD (S/P/Bld) [Vol rate/Area]Ordered By: Anastacia Bonilla on 12-12-2024 Estimated GFR (MDRD) Non-Af Amer 87 >60 [facility] Comment on above: mL/min/1.73m2 CKD-EP I Creatinine Equation (2020) Glomerular filtration rate (GFR) estimation/1.73 sq m using serum, plasma, or whole b 87 >60 [facility] Glomerular filtration rate ( GFR) estimation/1.73 sq m using serum, plasma, or whole bOrdered By: Anastacia Bonilla on 12-12-2024 GFR/1.73 sq M.predicted among non-blacks MDRD (S/P/Bld) [Vol rate/Area] 87 mL/min/{1.73_m2} >60 [facility] Glucose [Mass/Vol]Ordered By : Anastacia Bonilla on 12-12-2024 Serum glucose measurement (mass/volume) 80 mg/dL 70-99 [facility] Hematocrit Auto (Bld) [Volum e fraction]Ordered By: Anastacia Bonilla on 12-12-2024 Hematocrit (Bld) [Volume fraction] 44.4 % 37-47 [facility] Automated blood hematocrit (percentage) 44.4 % 37-47 [facility] Hemoglobin measurementOrdere d By: Anastacia Bonilla on 12-12-2024 Hemoglobin (Bld) [Mass/Vol] 13.7 g/dL 12.0-15.0 [facility] Hemoglobin measurement 13.7 g/dL 12.0-15.0 [facility] Lymphocytes Auto (Unsp spec) [#/Vol]Ordered By: Anastacia Bonilla on 12-12-2024 Lymphocytes (Bld) [#/Vol] 4.36 10*3/uL 0.83-4.51 [facility] Absolute lymphocyte count 4.36 X10^3/uL 0.83-4.51 [facility] Lymphocytes/100 WBC (Bld)Ord ered By: Anastacia Bonilla on 12-12-2024 Blood lymphocytes/100 leukocytes 17 % Low 19-41 [facility] MCV (RBC) [Entitic vol]Order ed By: Anastacia Bonilla on 12-12-2024 MCV (mean corpuscular volume) determination 86.2 fL 81-99 [facility] MCV (mean corpuscular volume ) determinationOrdered By: Anastacia Bonilla on 12-12-2024 MCV (RBC) [Entitic vol] 86.2 fL 81-99 [facility] MR/POSTOP.ANEon 12-12-2024 MR/POSTOP.ANE Normal [facility] [id number] 12-12-2024 MR/POSTOPAN2 Normal [facility] Manual differential comment Geovany (Bld) [Interp]Ordered By: Anastacia Bonilla on 12-12-2024 Differential Comment SCANNED [facility] Comment on above: LYMPHOCYTOSIS PRESEN TMONOCYTOSIS PRESENT Blood manual differential comment interpretation (narrative result) SCANNED [facility] Mean corpuscular hemoglobin (MCH) determinationOrdered By: Anastacia Bonilla on 12-12-2024 MCH (RBC) [Entitic mass] 26.6 pg Low 27.0-32.0 [facility] Mean corpuscular hemoglobin (MCH) determination 26.6 pg Low 27.0-32.0 [facility] Mean corpuscular hemoglobin concentration (MCHC) determinationOrdered By: Anastacia Bonilla on 12-12-2024 MCHC (RBC) [Mass/Vol] 30.9 g/dL Low 32-36 [facility] Mean corpuscular hemoglobin concentration (MCHC) determination 30.9 g/dL Low 32-36 [facility] Mean platelet volume determi nationOrdered By: Anastacia Bonilla on 12-12-2024 Platelet mean volume (Bld) [Entitic vol] 10.1 fL 6.2-12.0 [facility] Mean platelet volume determination 10.1 fl 6.2-12.0 [facility] Metamyelocytes/100 WBC (Bld) Ordered By: Anastacia Bonilla on 12-12-2024 Blood metamyelocytes/100 leukocytes 1 % 0-1 [facility] Monocytes/100 WBC (Bld)Order ed By: Anastacia Bonilla on 12-12-2024 Blood monocytes/100 leukocytes 5 % 0-10 [facility] Myelocyte %Ordered By: Anastacia Bonilla on 12-12-2024 Myelocytes/100 WBC (Bld) 7 % High 0-0 [facility] Myelocyte % 7 % High 0-0 [facility] Neutrophil percentageOrdered By: Anastacia Bonilla on 12-12-2024 Neutrophils (%) (Auto) Not Reportable [facility] Neutrophil percentage Not Reportable [facility] Pathologist review Geovany (Unsp spec) [Interp]Ordered By: Anastacia Bonilla on 12-12-2024 Differential Pathologist's Review January [facility] Review by pathologist January [facility] Review by pathologist N/A [facility] Platelet countOrdered By: Emily Bonilla on 12-12-2024 Platelets (Bld) [#/Vol] 345 10*3/uL 150-450 [facility] Platelet count 345 K/mm3 150-450 [facility] Potassium (Unsp spec) [Mass/ Vol]Ordered By: Anastacia Bonilla on 12-12-2024 Potassium [Moles/Vol] 4.1 mmol/L 3.3-5.1 [facility] Potassium measurement (mass/volume) 4.1 mmol/L 3.3-5.1 [facility] Potassium measurement (mass/ volume)Ordered By: Anastacia Bonilla on 12-12-2024 Potassium (Unsp spec) [Mass/Vol] 4.1 mmol/L 3.3-5.1 [facility] RBC Auto (Bld) [#/Vol]Ordere d By: Anastacia Bonilla on 12-12-2024 RBC (Bld) [#/Vol] 5.15 10*6/uL 4.2-5.4 [facility] Automated blood erythrocyte count 5.15 M/mm3 4.2-5.4 [facility] Review by pathologistOrdered By: Anastacia Bonilla on 12-12-2024 Pathologist review Geovany (Unsp spec) [Interp] N/A [facility] Segmented neutrophils/100 WB C (Bld)Ordered By: Anastacia Bonilla on 12-12-2024 Neutrophils/100 WBC (Bld) 65 % 47-70 [facility] Blood segmented neutrophils/100 leukocytes 65 % 47-70 [facility] Serum creatinine measurement (mass/volume)Ordered By: Anastacia Bonilla on 12-12-2024 Creatinine [Mass/Vol] 0.77 mg/dL 0.70-1.20 [facility] Serum glucose measurement (m ass/volume)Ordered By: Anastacia Bonilla on 12-12-2024 Glucose [Mass/Vol] 80 mg/dL 70-99 [facility] Serum or plasma calcium esthela urement (mass/volume)Ordered By: Anastacia Bonilla on 12-12-2024 Calcium [Mass/Vol] 8.9 mg/dL 7.6-11.0 [facility] Serum or plasma urea nitroge n measurement (mass/volume)Ordered By: Anastacia Bonilla on 12-12-2024 Urea nitrogen [Mass/Vol] 25 mg/dL High 01-14 [facility] Sodium levelOrdered By: Anastacia Bonilla on 12-12-2024 Sodium [Moles/Vol] 137 mmol/L 133-145 [facility] Sodium level 137 mmol/L 133-145 [facility] Total cell countOrdered By: Anastacia Bonilla on 12-12-2024 Cells counted Molgen (Bld/Tiss) [#] 100 MANUAL DIFF [facility] Urea nitrogen [Mass/Vol]Orde red By: Anastacia Bonilla on 12-12-2024 Serum or plasma urea nitrogen measurement (mass/volume) 25 mg/dL High 01-14 [facility] White blood cell (WBC) count Ordered By: Anastacia Bonilla on 12-12-2024 WBC (Bld) [#/Vol] 25.7 10*3/uL High 4.4-11.0 [facility] White blood cell (WBC) count 25.7 K/mm3 High 4.4-11.0 [facility] Basic Metabolic Profile (BMP )on 12-11-2024 BUN/CRE 36.7 RATIO High 10-20 [facility] Comment on above: Performed By: #### L 100.0100, L500.2500 ####[facility] [address] [place], [address] Calcium [Mass/Vol] 9.0 mg/dL Normal 7.6-11.0 [facility] Comment on above: Performed By: #### L 100.0100, L500.2500 ####[facility] [address] [place], [address] Chloride [Moles/Vol] 96 mmol/L Low 98-108 [facility] Comment on above: Performed By: #### L 100.0100, L500.2500 ####[facility] [address] [place], [address] CO2 [Moles/Vol] 27.6 mmol/L Normal 21.0-32.0 [facility] Comment on above: Performed By: #### L 100.0100, L500.2500 ####[facility] [address] [place], [address] Creatinine [Mass/Vol] 0.79 mg/dL Normal 0.70-1.20 [facility] Comment on above: Performed By: #### L 100.0100, L500.2500 ####[facility] [address] [place], [address] ECRCL 61.86 ml/min Normal 50-250 [facility] Comment on above: Performed By: #### L 100.0100, L500.2500 ####[facility] [address] [place], [address] GAP 13 Normal 5-15 [facility] Comment on above: Performed By: #### L 100.0100, L500.2500 ####[facility] [address] [place], [address] GFR/1.73 sq M.predicted among non-blacks MDRD (S/P/Bld) [Vol rate/Area] 85 mL/min/{1.73_m2} Normal >60 [facility] Comment on above: Result Comment: mL/m in/1.73m2 CKD-EPI Creatinine Equation (2020) Performed By: #### L 100.0100, L500.2500 ####[facility] [address] [place], [address] Glucose [Mass/Vol] 79 mg/dL Normal 70-99 [facility] Comment on above: Performed By: #### L 100.0100, L500.2500 ####[facility] [address] [place], [address] Potassium [Moles/Vol] 4.4 mmol/L Normal 3.3-5.1 [facility] Comment on above: Performed By: #### L 100.0100, L500.2500 ####[facility] [address] [place], [address] Sodium [Moles/Vol] 137 mmol/L Normal 133-145 [facility] Comment on above: Performed By: #### L 100.0100, L500.2500 ####[facility] [address] [place], [address] Urea nitrogen [Mass/Vol] 29 mg/dL High 4-19 [facility] Comment on above: Performed By: #### L 100.0100, L500.2500 ####[facility] [address] [place], [address] Gram Stainon 12-11-2024 GS Acceptable Specimen? Yes (<25 Epithelial cells per/lpf) Gram Stain 1+ Gram positive cocci 1+ Epithelial cells No White Blood Cells Normal [facility] Comment on above: Performed By: #### M 100.2000, M100.2400 ####[facility] [address] [place], [address] Laboratory - Hematology and Cell countsOrdered By: Anastacia Bonilla on 12-11-2024 Anisocytosis Ql (Bld) 1+ [facility] Microcytosis evaluation pane lOrdered By: Anastacia Bonilla on 12-11-2024 Microcytosis 1+ [facility] Microcytosis evaluation panel 1+ [facility] Ovalocyte detectionOrdered B y: Anastacia Bonilla on 12-11-2024 Ovalocytes LM Ql (Bld) 1+ [facility] Ovalocytes LM Ql (Bld)Ordere d By: Anastacia Bonilla on 12-11-2024 Ovalocytes 1+ [facility] Platelet estimateOrdered By: Anastacia Bonilla on 12-11-2024 Platelets LM Ql (Bld) ADEQUATE ADEQ [facility] Platelets LM Ql (Bld)Ordered By: Anastacia Chad on 12-11-2024 Platelet Estimate ADEQUATE ADEQ [facility] Platelet estimate [facility]QUATE [facility] Basic Metabolic Profile (BMP )on 12-10-2024 BUN/CRE 41.3 RATIO High 10-20 [facility] Comment on above: Performed By: #### L 100.0100, L500.2500 ####[facility] [address] [place], [address] Calcium [Mass/Vol] 9.5 mg/dL Normal 7.6-11.0 [facility] Comment on above: Performed By: #### L 100.0100, L500.2500 ####[facility] [address] [place], [address] Chloride [Moles/Vol] 97 mmol/L Low 98-108 [facility] Comment on above: Performed By: #### L 100.0100, L500.2500 ####[facility] [address] [place], [address] CO2 [Moles/Vol] 28.4 mmol/L Normal 21.0-32.0 [facility] Comment on above: Performed By: #### L 100.0100, L500.2500 ####[facility] [address] [place], [address] Creatinine [Mass/Vol] 0.82 mg/dL Normal 0.70-1.20 [facility] Comment on above: Performed By: #### L 100.0100, L500.2500 ####[facility] [address] [place], [address] ECRCL 59.60 ml/min Normal 50-250 [facility] Comment on above: Performed By: #### L 100.0100, L500.2500 ####[facility] [address] [place], [address] GAP 11 Normal 5-15 [facility] Comment on above: Performed By: #### L 100.0100, L500.2500 ####[facility] [address] [place], [address] GFR/1.73 sq M.predicted among non-blacks MDRD (S/P/Bld) [Vol rate/Area] 81 mL/min/{1.73_m2} Normal >60 [facility] Comment on above: Result Comment: mL/m in/1.73m2 CKD-EPI Creatinine Equation (2020) Performed By: #### L 100.0100, L500.2500 ####[facility] [address] [place], [address] Glucose [Mass/Vol] 157 mg/dL High 70-99 [facility] Comment on above: Performed By: #### L 100.0100, L500.2500 ####[facility] [address] [place], [address] Potassium [Moles/Vol] 5.2 mmol/L High 3.3-5.1 [facility] Comment on above: Performed By: #### L 100.0100, L500.2500 ####[facility] [address] [place], [address] Sodium [Moles/Vol] 136 mmol/L Normal 133-145 [facility] Comment on above: Performed By: #### L 100.0100, L500.2500 ####[facility] [address] [place], [address] Urea nitrogen [Mass/Vol] 34 mg/dL High 4-19 [facility] Comment on above: Performed By: #### L 100.0100, L500.2500 ####[facility] [address] [place], [address] Blood eosinophils/100 leukoc ytesOrdered By: Anastacia Bonilla on 12-10-2024 Eosinophils/100 WBC (Bld) 1 % 0-5 [facility] Eosinophils/100 WBC (Bld)Ord ered By: Anastacia Waltersroberth on 12-10-2024 Blood eosinophils/100 leukocytes 1 % 0-5 [facility] Gram stainOrdered By: Ever Aguayo on 12-10-2024 Microscopic observation Gram stain Nom (Unsp spec) [facility] Microbial respiratory cultur eOrdered By: Aleta Aguayo on 12-10-2024 Microorganism identified Cx Nom (Unsp spec) or Staphylococcus aureus isolated. [facility] Microorganism identified Cx Nom (Unsp spec)Ordered By: Aleta Aguayo on 12-10-2024 Microbial respiratory culture or Staphylococcus aureus isolated. [facility] Platelet morphologyOrdered B y: Anastacia Waltersroberth on 12-10-2024 Platelet morphology finding Nom (Bld) G [facility] Platelet morphology finding Nom (Bld)Ordered By: Anastacia Bonilla on 12-10-2024 Platelet Morphology Comment G [facility] Platelet morphology G [facility] Basic Metabolic Profile (BMP )on 12-09-2024 BUN/CRE 40.8 RATIO High 10-20 [facility] Comment on above: Performed By: #### L 500.2500 ####[facility] [address] [place], [address] Calcium [Mass/Vol] 9.8 mg/dL Normal 7.6-11.0 [facility] Comment on above: Performed By: #### L 500.2500 ####[facility] [address] [place], [address] Chloride [Moles/Vol] 96 mmol/L Low 98-108 [facility] Comment on above: Performed By: #### L 500.2500 ####[facility] [address] [place], [address] CO2 [Moles/Vol] 27.3 mmol/L Normal 21.0-32.0 [facility] Comment on above: Performed By: #### L 500.2500 ####[facility] [address] [place], [address] Creatinine [Mass/Vol] 0.85 mg/dL Normal 0.70-1.20 [facility] Comment on above: Performed By: #### L 500.2500 ####[facility] [address] [place], [address] ECRCL 57.49 ml/min Normal 50-250 [facility] Comment on above: Performed By: #### L 500.2500 ####[facility] [address] [place], [address] GAP 13 Normal 5-15 [facility] Comment on above: Performed By: #### L 500.2500 ####[facility] [address] [place], [address] GFR/1.73 sq M.predicted among non-blacks MDRD (S/P/Bld) [Vol rate/Area] 78 mL/min/{1.73_m2} Normal >60 [facility] Comment on above: Result Comment: mL/m in/1.73m2 CKD-EPI Creatinine Equation (2020) Performed By: #### L 500.2500 ####[facility] [address] [place], [address] Glucose [Mass/Vol] 176 mg/dL High 70-99 [facility] Comment on above: Performed By: #### L 500.2500 ####[facility] [address] [place], [address] Potassium [Moles/Vol] 5.0 mmol/L Normal 3.3-5.1 [facility] Comment on above: Performed By: #### L 500.2500 ####[facility] [address] [place], [address] Sodium [Moles/Vol] 135 mmol/L Normal 133-145 [facility] Comment on above: Performed By: #### L 500.2500 ####[facility] [address] [place], [address] Urea nitrogen [Mass/Vol] 35 mg/dL High 4-19 [facility] Comment on above: Performed By: #### L 500.2500 ####[facility] [address] [place], [address] Erythrocyte morphology asses smentOrdered By: Gonzalo Sebastian on 12-09-2024 RBC morphology finding Nom (Bld) NORM C+C NORMAL NORM C&C [facility] RBC morphology finding Nom ( Bld)Ordered By: Gonzalo Sebastian on 12-09-2024 Red Blood Cell Morphology NORM C+C NORMAL NORM C&C [facility] Erythrocyte morphology assessment NORM C+C NORMAL NORM C&C [facility] CBC W/Diff, Automatedon 11-26 Absolute Neut Normal 2.0-7.7 [facility] Comment on above: Result Comment: Canc elled via OM: Order edited - Discontinuing original order Performed By: #### L 100.0100 ####[facility] [address] [place], [address] HCT Normal 37-47 [facility] Comment on above: Result Comment: Canc elled via OM: Order edited - Discontinuing original order Performed By: #### L 100.0100 ####[facility] [address] [place], [address] HGB Normal 12.0-15.0 [facility] Comment on above: Result Comment: Canc elled via OM: Order edited - Discontinuing original order Performed By: #### L 100.0100 ####[facility] [address] [place], [address] MCH Normal 27.0-32.0 [facility] Comment on above: Result Comment: Canc elled via OM: Order edited - Discontinuing original order Performed By: #### L 100.0100 ####[facility] [address] [place], [address] MCHC Normal 32-36 [facility] Comment on above: Result Comment: Canc elled via OM: Order edited - Discontinuing original order Performed By: #### L 100.0100 ####[facility] [address] [place], [address] MCV Normal 81-99 [facility] Comment on above: Result Comment: Canc elled via OM: Order edited - Discontinuing original order Performed By: #### L 100.0100 ####[facility] [address] [place], [address] NEUT% Normal 47-70 [facility] Comment on above: Result Comment: Canc elled via OM: Order edited - Discontinuing original order Performed By: #### L 100.0100 ####[facility] [address] [place], [address] PLT Normal 150-450 [facility] Comment on above: Result Comment: Canc elled via OM: Order edited - Discontinuing original order Performed By: #### L 100.0100 ####[facility] [address] [place], [address] RBC Normal 4.2-5.4 [facility] Comment on above: Result Comment: Canc elled via OM: Order edited - Discontinuing original order Performed By: #### L 100.0100 ####[facility] [address] [place], [address] RDW CV Normal 11.6-14.6 [facility] Comment on above: Result Comment: Canc elled via OM: Order edited - Discontinuing original order Performed By: #### L 100.0100 ####[facility] [address] [place], [address] RDW SD Normal 35.1-43.9 [facility] Comment on above: Result Comment: Canc elled via OM: Order edited - Discontinuing original order Performed By: #### L 100.0100 ####[facility] [address] [place], [place], [address] WBC Normal 4.4-11.0 [facility] Comment on above: Result Comment: Canc elled via OM: Order edited - Discontinuing original order Performed By: #### L 100.0100 ####[facility] [address] [place], [place], [address] Modified Barium Swallow Stud yon 12-08-2024 Modified Barium Swallow Study Normal [facility] Influenza virus A and B and SARS-CoV-2 (COVID-19) and Respiratory syncytial virus RNAOrdered By: Gonzalo Sebastian on 12-07-2024 SARS-CoV-2 (COVID-19) RNA KANDY+probe Ql (Unsp spec) [facility] L503.7505on 12-07-2024 Natriuretic peptide B (Bld) [Mass/Vol] 3318 pg/mL High <=900 [facility] Comment on above: Result Comment: Hear t Failure Unlikely: < 300 pg/mLHeart Failure Likely< 50 Years: > 450 pg/mL50-75 Years: > 900 pg/mL>75 Years: > 1800 pg/mL Performed By: #### L 503.7505 ####[facility] [address] [place], [place], [address] Laboratory - Chemistry and C hemistry - challengeOrdered By: Gonzalo Sebastian on 12-07-2024 Natriuretic peptide B (Bld) [Mass/Vol] 3318 pg/mL High <900 [facility] Comment on above: Heart Failure Unlike ly: < 300 pg/mLHeart Failure Likely< 50 Years: > 450 pg/mL50-75 Years: > 900 pg/mL>75 Years: > 1800 pg/mL M100.678on 12-07-2024 M100.678 Pending SARS-CoV-2 (COVID 19) Negative INFLUENZA A Negative INFLUENZA B Negative RSV PCR Negative Normal [facility] Comment on above: Performed By: #### M 100.678 ####[facility] [address] [place], [address] No Panel InformationOrdered By: Gonzalo Sebastian on 12-07-2024 3318 pg/mL High <900 [facility] Absolute neutrophil countOrd ered By: Gonzalo Sebastian on 12-06-2024 Neutrophils (Bld) [#/Vol] 23.2 10*3/uL High 2.0-7.7 [facility] Anion gap in Serum or Plasma Ordered By: Gonzalo Sebastian on 12-06-2024 Anion gap [Moles/Vol] 13 mmol/L 5-15 [facility] Automated lymphocyte count a s percentage of total leukocytesOrdered By: Gonzalo Sebastian on 12-06-2024 Lymphocytes/100 WBC Auto (Unsp spec) 4.5 % Low 19-41 [facility] BUN/creatinine ratioOrdered By: Gonzalo Sebastian on 12-06-2024 Urea nitrogen/Creatinine [Mass ratio] 27.8 mg/mg High 10-20 [facility] Basic Metabolic Profile (BMP )on 12-06-2024 BUN/CRE 27.8 RATIO High 10-20 [facility] Comment on above: Performed By: #### L 503.7505, L500.2500, L100.0100, L509.7001 ####[facility] [address] [place], [address] Calcium [Mass/Vol] 9.3 mg/dL Normal 7.6-11.0 [facility] Comment on above: Performed By: #### L 503.7505, L500.2500, L100.0100, L509.7001 ####[facility] [address] [place], [address] Chloride [Moles/Vol] 98 mmol/L Normal 98-108 [facility] Comment on above: Performed By: #### L 503.7505, L500.2500, L100.0100, L509.7001 ####[facility] [address] [place], [address] CO2 [Moles/Vol] 23.2 mmol/L Normal 21.0-32.0 [facility] Comment on above: Performed By: #### L 503.7505, L500.2500, L100.0100, L509.7001 ####[facility] [address] [place], [address] Creatinine [Mass/Vol] 1.57 mg/dL High 0.70-1.20 [facility] Comment on above: Performed By: #### L 503.7505, L500.2500, L100.0100, L509.7001 ####[facility] [address] [place], [address] ECRCL 31.13 ml/min Low 50-250 [facility] Comment on above: Performed By: #### L 503.7505, L500.2500, L100.0100, L509.7001 ####[facility] [address] [place], [address] GAP 13 Normal 5-15 [facility] Comment on above: Performed By: #### L 503.7505, L500.2500, L100.0100, L509.7001 ####[facility] [address] [place], [address] GFR/1.73 sq M.predicted among non-blacks MDRD (S/P/Bld) [Vol rate/Area] 37 mL/min/{1.73_m2} Low >60 [facility] Comment on above: Result Comment: mL/m in/1.73m2 CKD-EPI Creatinine Equation (2020) Performed By: #### L 503.7505, L500.2500, L100.0100, L509.7001 ####[facility] [address] [place], [address] Glucose [Mass/Vol] 166 mg/dL High 70-99 [facility] Comment on above: Performed By: #### L 503.7505, L500.2500, L100.0100, L509.7001 ####[facility] [address] [place], [address] Potassium [Moles/Vol] 4.9 mmol/L Normal 3.3-5.1 [facility] Comment on above: Performed By: #### L 503.7505, L500.2500, L100.0100, L509.7001 ####[facility] [address] [place], [address] Sodium [Moles/Vol] 134 mmol/L Normal 133-145 [facility] Comment on above: Performed By: #### L 503.7505, L500.2500, L100.0100, L509.7001 ####[facility] [address] [place], [address] Urea nitrogen [Mass/Vol] 44 mg/dL High 4-19 [facility] Comment on above: Performed By: #### L 503.7505, L500.2500, L100.0100, L509.7001 ####[facility] [address] [place], [address] Basophil percentageOrdered B y: Gonzalo Sebastian on 12-06-2024 Basophils/100 WBC (Bld) 0.2 % 0-1 [facility] Basophil percentage 0.2 % 0-1 [facility] Carbon dioxide, total [Moles /volume] in Central venous bloodOrdered By: Gonzalo Sebastian on 12-06-2024 CO2 [Moles/Vol] 23.2 mmol/L 21.0-32.0 [facility] Chloride assayOrdered By: Soares on 12-06-2024 Chloride [Moles/Vol] 98 mmol/L 98-108 [facility] Echocardiogram study reportO rdered By: Bridgette Gaxiola on 12-06-2024 Study report [facility] [address] [place] [address] Echo Complete 12/05/24 1413 MR#: [id number] Acct: [id number] Name: GRACIE BANUELOS Rep #:[id number] : 1965 59 From: Bridgette lopez MD Attending Dr: Dr. Yrn Kahn, Status: ADM IN Ordering Dr: Gonzalo Sebastian DO Date: 07/22 Location: [facility] Sex: F C Admitted: 12/04/24 Reason [...] insufficiency. Ordering Physician: Gonzalo Sebastian Referring Physician: MISABH ELKINS Performed By: Grazyna Lazaro RCS 12/06/24 1251 Date _ Bridgette Gaxiola MD CC: Dr. Misbah Elkins MD; Dr. Gonzalo Sebastian, DO; Dr. Yrn Kahn DO ~ Date Dictated: 12/05/24 1413 Date Transcribed: 12/06/24 1251 Simulation Educator: Signed [facility] Work Phone: [phone] Eosinophil percentageOrdered By: Gonzalo Sebastian on 12-06-2024 Eosinophils/100 WBC (Bld) 0.0 % 0-5 [facility] Eosinophil percentage 0.0 % 0-5 [facility] Erythrocyte distribution wid th ratioOrdered By: Gonzalo Sebastian on 12-06-2024 Erythrocyte distribution width (RBC) [Ratio] 15.3 % High 11.6-14.6 [facility] Erythrocyte distribution wid th standard deviationOrdered By: Gonzalo Sebastian on 12-06-2024 Erythrocyte distribution width (RBC) [Entitic vol] 47.7 fL High 35.1-43.9 [facility] Estimation of creatinine binu aranceOrdered By: Gonzalo Sebastian on 12-06-2024 Estimated Creatinine Clearance Calc 31.13 ml/min Low 50-250 [facility] GFR/1.73 sq M.predicted gregory g non-blacks MDRD (S/P/Bld) [Vol rate/Area]Ordered By: Gonzalo Sebastian on 12-06-2024 Estimated GFR (MDRD) Non-Af Amer 37 Low >60 [facility] Comment on above: mL/min/1.73m2 CKD-EP I Creatinine Equation (2020) Hematocrit Auto (Bld) [Volum e fraction]Ordered By: Gonzalo Sebastian on 12-06-2024 Hematocrit (Bld) [Volume fraction] 39.6 % 37-47 [facility] Hemoglobin measurementOrdere d By: Gonzalo Sebastian on 12-06-2024 Hemoglobin (Bld) [Mass/Vol] 12.6 g/dL 12.0-15.0 [facility] Immature granulocytes/100 WB C Auto (Bld)Ordered By: Gonzalo Sebastian on 12-06-2024 Immature granulocytes/100 WBC (Bld) 0.900 % 0.0-0.9 [facility] Comment on above: IG% - Immature Granu locytes (promyelocytes, myelocytes and metamyelocytes) > 1% indicates that a LEFT SHIFT is Present. Automated immature granulocyte percentage 0.900 % 0.0-0.9 [facility] L503.7505on 12-06-2024 Natriuretic peptide B (Bld) [Mass/Vol] 2014 pg/mL High <=900 [facility] Comment on above: Result Comment: Hear t Failure Unlikely: < 300 pg/mLHeart Failure Likely< 50 Years: > 450 pg/mL50-75 Years: > 900 pg/mL>75 Years: > 1800 pg/mL Performed By: #### L 503.7505, L500.2500, L100.0100, L509.7001 ####[facility] [address] [place], [place], [address] L509.7001on 12-06-2024 Procalcitonin 0.31 ng/mL High <=0.10 [facility] Comment on above: Result Comment: Inte rpretation:<0.10-0.25 [...] By: #### L 503.7505, L500.2500, L100.0100, L509.7001 ####[facility] [address] [place], [place], [address] Lymphocytes Auto (Unsp spec) [#/Vol]Ordered By: Gonzalo Sebastian on 12-06-2024 Lymphocytes (Bld) [#/Vol] 1.17 10*3/uL 0.83-4.51 [facility] Lymphocytes/100 WBC Auto (Un sp spec)Ordered By: Gonzalo Sebastian on 12-06-2024 Lymphocytes/100 WBC (Bld) 4.5 % Low 19-41 [facility] Automated lymphocyte count as percentage of total leukocytes 4.5 % Low 19-41 [facility] MCV (mean corpuscular volume ) determinationOrdered By: Gonzalo Sebastian on 12-06-2024 MCV (RBC) [Entitic vol] 85.7 fL 81-99 [facility] Mean corpuscular hemoglobin (MCH) determinationOrdered By: Gonzalo Sebastian on 12-06-2024 MCH (RBC) [Entitic mass] 27.3 pg 27.0-32.0 [facility] Mean corpuscular hemoglobin concentration (MCHC) determinationOrdered By: Gonzalo Sebastian on 12-06-2024 MCHC (RBC) [Mass/Vol] 31.8 g/dL Low 32-36 [facility] Mean platelet volume determi nationOrdered By: Gonzalo Sebastian on 12-06-2024 Platelet mean volume (Bld) [Entitic vol] 10.5 fL 6.2-12.0 [facility] Monocyte percentageOrdered B y: Gonzalo Sebastian on 12-06-2024 Monocytes/100 WBC (Bld) 6.0 % 0-10 [facility] Monocyte percentage 6.0 % 0-10 [facility] Neutrophil percentageOrdered By: Gonzalo Sebastian on 12-06-2024 Neutrophils/100 WBC (Bld) 88.4 % High 47-70 [facility] No Panel InformationOrdered By: Gonzalo Sebastian on 12-06-2024 Procalcitonin 0.31 ng/mL High <0.11 [facility] Comment on above: Interpretation:<0.10 -0.25 ng/mL: Antibiotic [...] of the patient. 0.31 ng/mL High <0.11 [facility] Nucleated red blood cell per centageOrdered By: Gonzalo Sebastian on 12-06-2024 Nucleated RBC/100 WBC (Bld) [Ratio] 0 % 0-5 [facility] Nucleated red blood cell percentage 0 % 0-5 [facility] Pathologist review Geovany (Unsp spec) [Interp]Ordered By: Gonzalo Sebastian on 12-06-2024 Differential Pathologist's Review May foll [facility] Platelet countOrdered By: Soares on 12-06-2024 Platelets (Bld) [#/Vol] 260 10*3/uL 150-450 [facility] Platelets LM Ql (Bld)Ordered By: Gonzalo Sebastian on 12-06-2024 Platelet Estimate A ADEQ [facility] Potassium (Unsp spec) [Mass/ Vol]Ordered By: Gonzalo Sebastian on 12-06-2024 Potassium [Moles/Vol] 4.9 mmol/L 3.3-5.1 [facility] RBC Auto (Bld) [#/Vol]Ordere d By: Gonzalo Sebastian on 12-06-2024 RBC (Bld) [#/Vol] 4.62 10*6/uL 4.2-5.4 [facility] Serum creatinine measurement (mass/volume)Ordered By: Gonzalo Sebastian on 12-06-2024 Creatinine [Mass/Vol] 1.57 mg/dL High 0.70-1.20 [facility] Serum glucose measurement (m ass/volume)Ordered By: Gonzalo Sebastian on 12-06-2024 Glucose [Mass/Vol] 166 mg/dL High 70-99 [facility] Serum or plasma calcium esthela urement (mass/volume)Ordered By: Gonzalo Sebastian on 12-06-2024 Calcium [Mass/Vol] 9.3 mg/dL 7.6-11.0 [facility] Serum or plasma urea nitroge n measurement (mass/volume)Ordered By: Gonzalo Sebastian on 12-06-2024 Urea nitrogen [Mass/Vol] 44 mg/dL High 4-19 [facility] Sodium levelOrdered By: Matt Sebastian on 12-06-2024 Sodium [Moles/Vol] 134 mmol/L 133-145 [facility] White blood cell (WBC) count Ordered By: Gonzalo Sebastian on 12-06-2024 WBC (Bld) [#/Vol] 26.2 10*3/uL High 4.4-11.0 [facility] ALP [Catalytic activity/Vol] Ordered By: Aleta Aguayo on 12-05-2024 Serum or plasma alkaline phosphatase measurement 149 U/L High 35-104 [facility] ALT [Catalytic activity/Vol] Ordered By: Aleta Aguayo on 12-05-2024 Serum or plasma alanine aminotransferase (ALT) measurement 39 U/L High <35 [facility] Albumin [Mass/Vol]Ordered By : Aleta Aguayo on 12-05-2024 Serum or plasma albumin measurement (mass/volume) 3.8 g/dL 3.4-4.8 [facility] Albumin/Globulin [Mass ratio ]Ordered By: Aleta Aguayo on 12-05-2024 Serum or plasma albumin/globulin mass ratio 1.2 RATIO 0.9-2.4 [facility] Arterial patency Wrist arter y --pre arterial punctureOrdered By: Yrn Kahn on 12-05-2024 Sergei Test Positive [facility] Assessment of wrist artery patency prior to arterial puncture Positive [facility] Assessment of wrist artery p atency prior to arterial punctureOrdered By: Yrn Kahn on 12-05-2024 Arterial patency Wrist artery --pre arterial puncture Positive [facility] Base excess Calc (BldV) [Mol es/Vol]Ordered By: Yrn Kahn on 12-05-2024 Blood Gas Base Excess -1 mmol/L -2-2 [facility] Blood base excess determination -1 mmol/L -2-2 [facility] Bilirubin, totalOrdered By: Aleta Aguayo on 12-05-2024 Bilirubin [Mass/Vol] 0.18 mg/dL 0.00-1.30 [facility] Bilirubin, total 0.18 mg/dL 0.00-1.30 [facility] Blood Gases by CPSon 025 Base excess Calc (Bld) [Moles/Vol] -1 mmol/L Normal -2 to +2 [facility] Comment on above: Performed By: #### L 8999.0800 ####[facility] [address] [place], [address] Blood Gas Type ART Normal [facility] Comment on above: Performed By: #### L 0.0800 ####[facility] [address] [place], [address] CO2 [Moles/Vol] 28 mmol/L Normal [facility] Comment on above: Performed By: #### L 9000.0800 ####[facility] [address] [place], [address] Comment 60 75 Normal [facility] Comment on above: Performed By: #### L 8999.0800 ####[facility] [address] [place], [address] HCO3 (Bld) [Moles/Vol] 26.4 mmol/L High 22-26 [facility] Comment on above: Performed By: #### L 8999.0800 ####[facility] [address] [place], [address] Mode Not entered [facility] Comment on above: Performed By: #### L 0.0800 ####[facility] [address] [place], [address] O2 Delivery Dev Not entered [facility] Comment on above: Performed By: #### L 9000.0800 ####[facility] [address] [place], [address] pCO2 61.0 mmHg High 35-45 [facility] Comment on above: Performed By: #### L 9000.0800 ####[facility] [address] [place], [address] pH (Bld) 7.24 [pH] Low 7.35-7.45 [facility] Comment on above: Performed By: #### L 9000.0800 ####[facility] [address] [place], [address] PO2 68 mmHG Low 75-100 [facility] Comment on above: Performed By: #### L 9000.0800 ####[facility] [address] [place], [address] SITE R Radial Normal [facility] Comment on above: Performed By: #### L 8999.0800 ####[facility] [address] [place], [address] SO2 89 Low 95-99 [facility] Comment on above: Performed By: #### L 8999.0800 ####[facility] [address] [place], [address] SERGEI TEST Positive Normal [facility] Comment on above: Performed By: #### L 8999.0800 ####[facility] [address] [place], [address] Base excess Calc (Bld) [Moles/Vol] -3 mmol/L Low -2 to +2 [facility] Comment on above: Performed By: #### L 8999.0800 ####[facility] [address] [place], [address] Blood Gas Type ART Normal [facility] Comment on above: Performed By: #### L 8999.0800 ####[facility] [address] [place], [address] CO2 [Moles/Vol] 25 mmol/L Normal [facility] Comment on above: Performed By: #### L 8999.0800 ####[facility] [address] [place], [address] Comment 425 Normal [facility] Comment on above: Performed By: #### L 8999.0800 ####[facility] [address] [place], [address] FI02 45.0 Normal [facility] Comment on above: Performed By: #### L 8999.0800 ####[facility] [address] [place], [address] HCO3 (Bld) [Moles/Vol] 23.8 mmol/L Normal 22-26 [facility] Comment on above: Performed By: #### L 9000.0800 ####[facility] [address] [place], [address] Mode Not entered Normal [facility] Comment on above: Performed By: #### L 9000.0800 ####[facility] [address] [place], [address] O2 Delivery Dev BiPAP Normal [facility] Comment on above: Performed By: #### L 9000.0800 ####[facility] [address] [place], [address] pCO2 51.6 mmHg High 35-45 [facility] Comment on above: Performed By: #### L 9000.0800 ####[facility] [address] [place], [address] pH (Bld) 7.27 [pH] Low 7.35-7.45 [facility] Comment on above: Performed By: #### L 9000.0800 ####[facility] [address] [place], [address] PO2 57 mmHG Low 75-100 [facility] Comment on above: Performed By: #### L 9000.0800 ####[facility] [address] [place], [address] RR 14 Normal [facility] Comment on above: Performed By: #### L 9000.0800 ####[facility] [address] [place], [address] SITE R Radial Normal [facility] Comment on above: Performed By: #### L 9000.0800 ####[facility] [address] [place], [address] SO2 85 Low 95-99 [facility] Comment on above: Performed By: #### L 9000.0800 ####[facility] [address] [place], [address] Blood base excess determinat ionOrdered By: Yrn Kahn on 12-05-2024 Base excess Calc (BldV) [Moles/Vol] -1 mmol/L -2-2 [facility] Blood bicarbonate measuremen tOrdered By: Yrn Kahn on 12-05-2024 Blood Gas Bicarbonate Actual 26.4 mmol/L High [facility] HCO3 (Bld) [Moles/Vol] 26.4 mmol/L High [facility] Blood bicarbonate measurement 26.4 mmol/L High [facility] CBC W/Diff, Automatedon 11-26 Absolute Lymph 0.86 X10 3/uL Normal 0.83-4.51 [facility] Comment on above: Performed By: #### L 100.0100, L501.5200, L500.4050, L501.2300 ####[facility] [address] [place], [address] Absolute Neut 15.1 X10 3/uL High 2.0-7.7 [facility] Comment on above: Performed By: #### L 100.0100, L501.5200, L500.4050, L501.2300 ####[facility] [address] [place], [address] Basophils/100 WBC (Bld) 0.4 % Normal 0-1 [facility] Comment on above: Performed By: #### L 100.0100, L501.5200, L500.4050, L501.2300 ####[facility] [address] [place], [address] Eosinophils/100 WBC (Bld) 0.1 % Normal 0-5 [facility] Comment on above: Performed By: #### L 100.0100, L501.5200, L500.4050, L501.2300 ####[facility] [address] [place], [address] Erythrocyte distribution width (RBC) [Ratio] 14.9 % High 11.6-14.6 [facility] Comment on above: Performed By: #### L 100.0100, L501.5200, L500.4050, L501.2300 ####[facility] [address] [place], [address] Hematocrit (Bld) [Volume fraction] 39.2 % Normal 37-47 [facility] Comment on above: Performed By: #### L 100.0100, L501.5200, L500.4050, L501.2300 ####[facility] [address] [place], [address] Hemoglobin (Bld) [Mass/Vol] 12.2 g/dL Normal 12.0-15.0 [facility] Comment on above: Performed By: #### L 100.0100, L501.5200, L500.4050, L501.2300 ####[facility] [address] [place], [address] IG% 1.400 High 0.0-0.9 [facility] Comment on above: Result Comment: IG% - Immature Granulocytes (promyelocytes, myelocytes andmetamyelocytes) > 1% indicates that a LEFT SHIFT is Present. Performed By: #### L 100.0100, L501.5200, L500.4050, L501.2300 ####[facility] [address] [place], [address] Lymphocytes/100 WBC (Bld) 5.1 % Low 19-41 [facility] Comment on above: Performed By: #### L 100.0100, L501.5200, L500.4050, L501.2300 ####[facility] [address] [place], [address] MCH (RBC) [Entitic mass] 26.5 pg Low 27.0-32.0 [facility] Comment on above: Performed By: #### L 100.0100, L501.5200, L500.4050, L501.2300 ####[facility] [address] [place], [address] MCHC (RBC) [Mass/Vol] 31.1 g/dL Low 32-36 [facility] Comment on above: Performed By: #### L 100.0100, L501.5200, L500.4050, L501.2300 ####[facility] [address] [place], [address] MCV (RBC) [Entitic vol] 85.0 fL Normal 81-99 [facility] Comment on above: Performed By: #### L 100.0100, L501.5200, L500.4050, L501.2300 ####[facility] [address] [place], [address] Monocytes/100 WBC (Bld) 4.0 % Normal 0-10 [facility] Comment on above: Performed By: #### L 100.0100, L501.5200, L500.4050, L501.2300 ####[facility] [address] [place], [address] Neutrophils/100 WBC (Bld) 89.0 % High 47-70 [facility] Comment on above: Performed By: #### L 100.0100, L501.5200, L500.4050, L501.2300 ####[facility] [address] [place], [address] Nucleated RBC (Bld) [#/Vol] 0 10*3/uL Normal 0-5 [facility] Comment on above: Performed By: #### L 100.0100, L501.5200, L500.4050, L501.2300 ####[facility] [address] [place], [address] Platelet mean volume (Bld) [Entitic vol] 10.9 fL Normal 6.2-12.0 [facility] Comment on above: Performed By: #### L 100.0100, L501.5200, L500.4050, L501.2300 ####[facility] [address] [place], [address] Platelets (Bld) [#/Vol] 250 10*3/uL Normal 150-450 [facility] Comment on above: Performed By: #### L 100.0100, L501.5200, L500.4050, L501.2300 ####[facility] [address] [place], [address] RBC (Bld) [#/Vol] 4.61 10*6/uL Normal 4.2-5.4 [facility] Comment on above: Performed By: #### L 100.0100, L501.5200, L500.4050, L501.2300 ####[facility] [address] [place], [address] RDW SD 46.7 fl High 35.1-43.9 [facility] Comment on above: Performed By: #### L 100.0100, L501.5200, L500.4050, L501.2300 ####[facility] [address] [place], [address] WBC (Bld) [#/Vol] 16.9 10*3/uL High 4.4-11.0 [facility] Comment on above: Performed By: #### L 100.0100, L501.5200, L500.4050, L501.2300 ####[facility] [address] [place], [address] Comprehensive Metabolic Prof ilsandor 12-05-2024 Albumin [Mass/Vol] 3.8 g/dL Normal 3.4-4.8 [facility] Comment on above: Performed By: #### L 100.0100, L501.5200, L500.4050, L501.2300 ####[facility] [address] [place], [address] Albumin/Globulin [Mass ratio] 1.2 {ratio} Normal 0.9-2.4 [facility] Comment on above: Performed By: #### L 100.0100, L501.5200, L500.4050, L501.2300 ####[facility] [address] [place], [address] ALK PHOS 149 U/L High 35-104 [facility] Comment on above: Performed By: #### L 100.0100, L501.5200, L500.4050, L501.2300 ####[facility] [address] [place], [address] ALT [Catalytic activity/Vol] 39 U/L High <=34 [facility] Comment on above: Performed By: #### L 100.0100, L501.5200, L500.4050, L501.2300 ####[facility] [address] [place], [address] AST [Catalytic activity/Vol] 62 U/L High <=31 [facility] Comment on above: Performed By: #### L 100.0100, L501.5200, L500.4050, L501.2300 ####[facility] [address] [place], [address] Bilirubin [Mass/Vol] 0.18 mg/dL Normal 0.00-1.30 [facility] Comment on above: Performed By: #### L 100.0100, L501.5200, L500.4050, L501.2300 ####[facility] [address] [place], [address] BUN/CRE 14.0 RATIO Normal 10-20 [facility] Comment on above: Performed By: #### L 100.0100, L501.5200, L500.4050, L501.2300 ####[facility] [address] [place], [address] Calcium [Mass/Vol] 6.7 mg/dL Low 7.6-11.0 [facility] Comment on above: Performed By: #### L 100.0100, L501.5200, L500.4050, L501.2300 ####[facility] [address] [place], [address] Chloride [Moles/Vol] 97 mmol/L Low 98-108 [facility] Comment on above: Performed By: #### L 100.0100, L501.5200, L500.4050, L501.2300 ####[facility] [address] [place], [address] CO2 [Moles/Vol] 21.0 mmol/L Normal 21.0-32.0 [facility] Comment on above: Performed By: #### L 100.0100, L501.5200, L500.4050, L501.2300 ####[facility] [address] [place], [address] Creatinine [Mass/Vol] 1.37 mg/dL High 0.70-1.20 [facility] Comment on above: Performed By: #### L 100.0100, L501.5200, L500.4050, L501.2300 ####[facility] [address] [place], [address] ECRCL 35.67 ml/min Low 50-250 [facility] Comment on above: Performed By: #### L 100.0100, L501.5200, L500.4050, L501.2300 ####[facility] [address] [place], [address] GAP 16 High 5-15 [facility] Comment on above: Performed By: #### L 100.0100, L501.5200, L500.4050, L501.2300 ####[facility] [address] [place], [address] GFR/1.73 sq M.predicted among non-blacks MDRD (S/P/Bld) [Vol rate/Area] 44 mL/min/{1.73_m2} Low >60 [facility] Comment on above: Result Comment: mL/m in/1.73m2 CKD-EPI Creatinine Equation (2020) Performed By: #### L 100.0100, L501.5200, L500.4050, L501.2300 ####[facility] [address] [place], [address] Globulin (S) [Mass/Vol] 3.2 g/dL Normal 2.2-4.2 [facility] Comment on above: Performed By: #### L 100.0100, L501.5200, L500.4050, L501.2300 ####[facility] [address] [place], [address] Glucose [Mass/Vol] 144 mg/dL High 70-99 [facility] Comment on above: Performed By: #### L 100.0100, L501.5200, L500.4050, L501.2300 ####[facility] [address] [place], [address] Potassium [Moles/Vol] 4.8 mmol/L Normal 3.3-5.1 [facility] Comment on above: Performed By: #### L 100.0100, L501.5200, L500.4050, L501.2300 ####[facility] [address] [place], [address] Sodium [Moles/Vol] 134 mmol/L Normal 133-145 [facility] Comment on above: Performed By: #### L 100.0100, L501.5200, L500.4050, L501.2300 ####[facility] [address] [place], [address] T PROT 7.0 g/dL Normal 5.9-8.4 [facility] Comment on above: Performed By: #### L 100.0100, L501.5200, L500.4050, L501.2300 ####[facility] [address] [place], [address] Urea nitrogen [Mass/Vol] 19 mg/dL Normal 4-19 [facility] Comment on above: Performed By: #### L 100.0100, L501.5200, L500.4050, L501.2300 ####[facility] [address] [place], [address] Consultation - Intensiviston 12-05-2024 Consultation - Lactation Coordinator Normal [facility] Determination of fraction of inspired oxygenOrdered By: Yrn Kahn on 12-05-2024 Blood Gas Oxygen Percent 45.0 [facility] Determination of fraction of inspired oxygen 45.0 [facility] Echo Completeon 12-05-2024 Echo Complete Normal [facility] Electrocardiogram reportOrde red By: Jose Guadalupe Cotter on 12-05-2024 EKG study [facility] Cardiovascular Services [address] [place] [address] 12 Lead EKG 12/04/24 1614 MR#: [id number] Acct: [id number] Name: GRACIE BANUELOS Rep #:[id number] : 1965 59 From: Jose Guadalupe gomez [...] baseline artifact Confirmed by Jose Guadalupe Cotter ([id number]), development editor LEONARD BAUTISTA ([id number]) on 12/05/2024 10:48:28 AM Referred By: Confirmed By: Jose Guadalupe Cotter 12/05/24 1048 Date _ Jose Guadalupe Cotter MD CC: Dr. Misbah Elkins MD; Dr. Franco Inman MD; Dr. Yrn Kahn, DO ~ Signed [facility] Other Phone: Laboratory - Chemistry and C hemistry - challengeOrdered By: Aleta Aguayo on 12-05-2024 AST [Catalytic activity/Vol] 62 U/L High <32 [facility] Magnesiumon 12-05-2024 Magnesium [Mass/Vol] 2.0 mg/dL Normal 1.5-2.2 [facility] Comment on above: Performed By: #### L 100.0100, L501.5200, L500.4050, L501.2300 ####[facility] [address] [place], [address] Magnesium (Unsp spec) [Mass/ Vol]Ordered By: Aleta Aguayo on 12-05-2024 Magnesium [Mass/Vol] 2.0 mg/dL 1.5-2.2 [facility] Magnesium measurement (mass/volume) 2.0 mg/dL 1.5-2.2 [facility] Magnesium measurement (mass/ volume)Ordered By: Aleta Aguayo on 12-05-2024 Magnesium (Unsp spec) [Mass/Vol] 2.0 mg/dL 1.5-2.2 [facility] Measurement, pHOrdered By: Mike Kahn on 12-05-2024 pH (Unsp spec) 7.24 [pH] Low 7.35-7.45 [facility] No Panel InformationOrdered By: Yrn Kahn on 12-05-2024 Blood Gas Clinical Comments 60 75 [facility] Blood Gas Sample Site R Radial [facility] Blood Gas Specimen Type ART [facility] Blood Gas Vent Mode Not entered [facility] Oxygen Delivery Device Not entered [facility] ART [facility] R Radial [facility] Not entered [facility] 60 75 [facility] Blood Gas Respiration Rate 14 [facility] 14 [facility] No Panel InformationOrdered By: Aleta Aguayo on 12-05-2024 62 U/L High <32 [facility] Oxygen saturation measuremen tOrdered By: Yrn Kahn on 12-05-2024 Blood Gas Oxygen Saturation 89 % Low 95-99 [facility] Oxygen saturation measurement 89 % Low 95-99 [facility] Partial pressure of carbon d ioxide measurementOrdered By: Yrn Kahn on 12-05-2024 Arterial Blood Partial Pressure CO2 61.0 mmHg High 35-45 [facility] Partial pressure of carbon dioxide measurement 61.0 mmHg High 35-45 [facility] Partial pressure of oxygen m easurementOrdered By: Yrn Kahn on 12-05-2024 Arterial Blood Partial Pressure O2 68 mmHG Low 75-100 [facility] Partial pressure of oxygen measurement 68 mmHG Low 75-100 [facility] Phosphoruson 12-05-2024 Phosphate [Mass/Vol] 6.2 mg/dL High 2.7-4.5 [facility] Comment on above: Performed By: #### L 100.0100, L501.5200, L500.4050, L501.2300 ####[facility] [address] [place], [place], [id number] RESPIRATORY PANEL MOLECULARo n 12-05-2024 RP PANEL Normal [facility] Comment on above: Performed By: #### M 100.638 ####[facility] [address] [place], [place], [id number] Serum globulin measurementOr dered By: Aleta Aguayo on 12-05-2024 Globulin (S) [Mass/Vol] 3.2 g/dL 2.2-4.2 [facility] Serum globulin measurement 3.2 g/dL 2.2-4.2 [facility] Serum or plasma alanine pimentel otransferase (ALT) measurementOrdered By: Aleta Aguayo on 12-05-2024 ALT [Catalytic activity/Vol] 39 U/L High <35 [facility] Serum or plasma albumin esthela urement (mass/volume)Ordered By: Aleta Aguayo on 12-05-2024 Albumin [Mass/Vol] 3.8 g/dL 3.4-4.8 [facility] Serum or plasma albumin/glob ulin mass ratioOrdered By: Aleta Aguayo on 12-05-2024 Albumin/Globulin [Mass ratio] 1.2 {ratio} 0.9-2.4 [facility] Serum or plasma alkaline jose sphatase measurementOrdered By: Aleta Aguayo on 12-05-2024 ALP [Catalytic activity/Vol] 149 U/L High 35-104 [facility] Serum phosphorus measurement Ordered By: Aleta Aguayo on 12-05-2024 Phosphorus Level 6.2 mg/dL High 2.7-4.5 [facility] Serum phosphorus measurement 6.2 mg/dL High 2.7-4.5 [facility] Total carbon dioxide measure mentOrdered By: Yrn Kahn on 12-05-2024 Blood Gas Total CO2 28 mmol/L [facility] CO2 [Moles/Vol] 28 mmol/L [facility] Total carbon dioxide measurement 28 mmol/L [facility] Total proteinOrdered By: Lilibeth Aguayo on 12-05-2024 Protein [Mass/Vol] 7.0 g/dL 5.9-8.4 [facility] Total protein 7.0 g/dL 5.9-8.4 [facility] pH (Unsp spec)Ordered By: Cherelle Kahn on 12-05-2024 Blood Gas pH 7.24 Low 7.35-7.45 [facility] Measurement, pH 7.24 Low 7.35-7.45 [facility] 12 Lead EKGon 12-04-2024 12 Lead EKG Normal [facility] Absolute neutrophil countOrd ered By: Franco Inman on 12-04-2024 Neutrophils (Bld) [#/Vol] 11.4 10*3/uL High 2.0-7.7 [facility] Anion gap in Serum or Plasma Ordered By: Franco Inman on 12-04-2024 Anion gap [Moles/Vol] 13 mmol/L 5-15 [facility] Assessment of wrist artery p atency prior to arterial punctureOrdered By: Aleta Aguayo on 12-04-2024 Sergei Test Positive Normal [facility] Comment on above: Performed By: #### L 9000.0800 ####[facility] [address] [place], [address] BUN/creatinine ratioOrdered By: Franco Inman on 12-04-2024 Urea nitrogen/Creatinine [Mass ratio] 10.4 mg/mg 07-17 [facility] Base excess Calc (BldV) [Mol es/Vol]Ordered By: Aleta Aguayo on 12-04-2024 Blood Gas Base Excess 1 mmol/L -2-2 [facility] Basic Metabolic Profile (BMP )on 12-04-2024 BUN/CRE 10.4 RATIO Normal 07-17 [facility] Comment on above: Performed By: #### L 100.0100, L500.2500 ####[facility] [address] [place], [address] Calcium [Mass/Vol] 9.2 mg/dL Normal 7.6-11.0 [facility] Comment on above: Performed By: #### L 100.0100, L500.2500 ####[facility] [address] [place], [address] Chloride [Moles/Vol] 99 mmol/L Normal 98-108 [facility] Comment on above: Performed By: #### L 100.0100, L500.2500 ####[facility] [address] [place], [address] CO2 [Moles/Vol] 24.6 mmol/L Normal 21.0-32.0 [facility] Comment on above: Performed By: #### L 100.0100, L500.2500 ####[facility] [address] [place], [address] Creatinine [Mass/Vol] 0.92 mg/dL Normal 0.70-1.20 [facility] Comment on above: Performed By: #### L 100.0100, L500.2500 ####[facility] [address] [place], [address] ECRCL 53.12 ml/min Normal 50-250 [facility] Comment on above: Performed By: #### L 100.0100, L500.2500 ####[facility] [address] [place], [address] GAP 13 Normal 5-15 [facility] Comment on above: Performed By: #### L 100.0100, L500.2500 ####[facility] [address] [place], [address] GFR/1.73 sq M.predicted among non-blacks MDRD (S/P/Bld) [Vol rate/Area] 71 mL/min/{1.73_m2} Normal >60 [facility] Comment on above: Result Comment: mL/m in/1.73m2 CKD-EPI Creatinine Equation (2020) Performed By: #### L 100.0100, L500.2500 ####[facility] [address] [place], [address] Glucose [Mass/Vol] 118 mg/dL High 70-99 [facility] Comment on above: Performed By: #### L 100.0100, L500.2500 ####[facility] [address] [place], [address] Potassium [Moles/Vol] 4.2 mmol/L Normal 3.3-5.1 [facility] Comment on above: Performed By: #### L 100.0100, L500.2500 ####[facility] [address] [place], [address] Sodium [Moles/Vol] 137 mmol/L Normal 133-145 [facility] Comment on above: Performed By: #### L 100.0100, L500.2500 ####[facility] [address] [place], [address] Urea nitrogen [Mass/Vol] 10 mg/dL Normal 4-19 [facility] Comment on above: Performed By: #### L 100.0100, L500.2500 ####[facility] [address] [place], [address] Basophil percentageOrdered B y: Franco Inman on 12-04-2024 Basophils/100 WBC (Bld) 0.9 % 0-1 [facility] Blood Gases by CPSon 025 Base excess Calc (Bld) [Moles/Vol] 1 mmol/L Normal -2 to +2 [facility] Comment on above: Performed By: #### L 9000.0800 ####[facility] [address] [place], [address] Blood Gas Type ART Normal [facility] Comment on above: Performed By: #### L 9000.0800 ####[facility] [address] [place], [address] CO2 [Moles/Vol] 30 mmol/L Normal [facility] Comment on above: Performed By: #### L 9000.0800 ####[facility] [address] [place], [address] FI02 5.0 Normal [facility] Comment on above: Performed By: #### L 9000.0800 ####[facility] [address] [place], [address] HCO3 (Bld) [Moles/Vol] 28.1 mmol/L High 22-26 [facility] Comment on above: Performed By: #### L 9000.0800 ####[facility] [address] [place], [address] Mode Not entered Normal [facility] Comment on above: Performed By: #### L 9000.0800 ####[facility] [address] [place], [address] O2 Delivery Dev Cannula Normal [facility] Comment on above: Performed By: #### L 9000.0800 ####[facility] [address] [place], [address] pCO2 65.4 mmHg High 35-45 [facility] Comment on above: Performed By: #### L 9000.0800 ####[facility] [address] [place], [address] pH (Bld) 7.24 [pH] Low 7.35-7.45 [facility] Comment on above: Performed By: #### L 9000.0800 ####[facility] [address] [place], [address] PO2 68 mmHG Low 75-100 [facility] Comment on above: Performed By: #### L 9000.0800 ####[facility] [address] [place], [address] SITE R Radial Normal [facility] Comment on above: Performed By: #### L 9000.0800 ####[facility] [address] [place], [address] SO2 89 Low 95-99 [facility] Comment on above: Performed By: #### L 9000.0800 ####[facility] [address] [place], [address] Blood bicarbonate measuremen tOrdered By: Aleta Aguayo on 12-04-2024 Blood Gas Bicarbonate Actual 28.1 mmol/L High 22-26 [facility] CBC W/Diff, Automatedon 03-0 Absolute Lymph 0.96 X10 3/uL Normal 0.83-4.51 [facility] Comment on above: Performed By: #### L 100.0100, L500.2500 ####[facility] [address] [place], [address] Absolute Neut 11.4 X10 3/uL High 2.0-7.7 [facility] Comment on above: Performed By: #### L 100.0100, L500.2500 ####[facility] [address] [place], [address] Basophils/100 WBC (Bld) 0.9 % Normal 0-1 [facility] Comment on above: Performed By: #### L 100.0100, L500.2500 ####[facility] [address] [place], [address] Eosinophils/100 WBC (Bld) 0.6 % Normal 0-5 [facility] Comment on above: Performed By: #### L 100.0100, L500.2500 ####[facility] [address] [place], [address] Erythrocyte distribution width (RBC) [Ratio] 14.7 % High 11.6-14.6 [facility] Comment on above: Performed By: #### L 100.0100, L500.2500 ####[facility] [address] [place], [address] Hematocrit (Bld) [Volume fraction] 43.7 % Normal 37-47 [facility] Comment on above: Performed By: #### L 100.0100, L500.2500 ####[facility] [address] [place], [address] Hemoglobin (Bld) [Mass/Vol] 14.1 g/dL Normal 12.0-15.0 [facility] Comment on above: Performed By: #### L 100.0100, L500.2500 ####[facility] [address] [place], [address] IG% 0.800 Normal 0.0-0.9 [facility] Comment on above: Result Comment: IG% - Immature Granulocytes (promyelocytes, myelocytes andmetamyelocytes) > 1% indicates that a LEFT SHIFT is Present. Performed By: #### L 100.0100, L500.2500 ####[facility] [address] [place], [address] Lymphocytes/100 WBC (Bld) 6.8 % Low 19-41 [facility] Comment on above: Performed By: #### L 100.0100, L500.2500 ####[facility] [address] [place], [address] MCH (RBC) [Entitic mass] 26.9 pg Low 27.0-32.0 [facility] Comment on above: Performed By: #### L 100.0100, L500.2500 ####[facility] [address] [place], [address] MCHC (RBC) [Mass/Vol] 32.3 g/dL Normal 32-36 [facility] Comment on above: Performed By: #### L 100.0100, L500.2500 ####[facility] [address] [place], [address] MCV (RBC) [Entitic vol] 83.4 fL Normal 81-99 [facility] Comment on above: Performed By: #### L 100.0100, L500.2500 ####[facility] [address] [place], [address] Monocytes/100 WBC (Bld) 10.4 % High 0-10 [facility] Comment on above: Performed By: #### L 100.0100, L500.2500 ####[facility] [address] [place], [address] Neutrophils/100 WBC (Bld) 80.5 % High 47-70 [facility] Comment on above: Performed By: #### L 100.0100, L500.2500 ####[facility] [address] [place], [address] Nucleated RBC (Bld) [#/Vol] 0 10*3/uL Normal 0-5 [facility] Comment on above: Performed By: #### L 100.0100, L500.2500 ####[facility] [address] [place], [address] Platelet mean volume (Bld) [Entitic vol] 10.2 fL Normal 6.2-12.0 [facility] Comment on above: Performed By: #### L 100.0100, L500.2500 ####[facility] [address] [place], [address] Platelets (Bld) [#/Vol] 271 10*3/uL Normal 150-450 [facility] Comment on above: Performed By: #### L 100.0100, L500.2500 ####[facility] [address] [place], [address] RBC (Bld) [#/Vol] 5.24 10*6/uL Normal 4.2-5.4 [facility] Comment on above: Performed By: #### L 100.0100, L500.2500 ####[facility] [address] [place], [address] RDW SD 44.6 fl High 35.1-43.9 [facility] Comment on above: Performed By: #### L 100.0100, L500.2500 ####[facility] [address] [place], [address] WBC (Bld) [#/Vol] 14.1 10*3/uL High 4.4-11.0 [facility] Comment on above: Performed By: #### L 100.0100, L500.2500 ####[facility] [address] [place], [address] CTA Chest W/WO Contraston CTA Chest W/WO Contrast Normal [facility] Carbon dioxide, total [Moles /volume] in Central venous bloodOrdered By: Franco Inman on 12-04-2024 CO2 [Moles/Vol] 24.6 mmol/L 21.0-32.0 [facility] Chest PA and Lateralon 12-04 Chest PA and Lateral Normal [facility] Chloride assayOrdered By: Leo Inman on 12-04-2024 Chloride [Moles/Vol] 99 mmol/L 98-108 [facility] Determination of fraction of inspired oxygenOrdered By: Aleta Aguayo on 12-04-2024 Blood Gas Oxygen Percent 5.0 [facility] Emergency Department Summary on 12-04-2024 Emergency Department Summary Normal [facility] Eosinophil percentageOrdered By: Franco Inman on 12-04-2024 Eosinophils/100 WBC (Bld) 0.6 % 0-5 [facility] Erythrocyte distribution wid th ratioOrdered By: Franco Inman on 12-04-2024 Erythrocyte distribution width (RBC) [Ratio] 14.7 % High 11.6-14.6 [facility] Erythrocyte distribution wid th standard deviationOrdered By: Franco Inman on 12-04-2024 Erythrocyte distribution width (RBC) [Entitic vol] 44.6 fL High 35.1-43.9 [facility] Estimation of creatinine binu aranceOrdered By: Franco Inman on 12-04-2024 Estimated Creatinine Clearance Calc 53.12 ml/min 50-250 [facility] GFR/1.73 sq M.predicted gregory g non-blacks MDRD (S/P/Bld) [Vol rate/Area]Ordered By: Franco Inman on 12-04-2024 Estimated GFR (MDRD) Non-Af Amer 71 >60 [facility] Comment on above: mL/min/1.73m2 CKD-EP I Creatinine Equation (2020) H AND P Exam - [facility] 12-04-2024 H&P Exam - Hospitalist Normal [facility] Hematocrit Auto (Bld) [Volum e fraction]Ordered By: Franco Inman on 12-04-2024 Hematocrit (Bld) [Volume fraction] 43.7 % 37-47 [facility] Hemoglobin measurementOrdere d By: Franco Inman on 12-04-2024 Hemoglobin (Bld) [Mass/Vol] 14.1 g/dL 12.0-15.0 [facility] Immature granulocytes/100 WB C Auto (Bld)Ordered By: Franco Inman on 12-04-2024 Immature granulocytes/100 WBC (Bld) 0.800 % 0.0-0.9 [facility] Comment on above: IG% - Immature Granu locytes (promyelocytes, myelocytes and metamyelocytes) > 1% indicates that a LEFT SHIFT is Present. Influenza virus A and B and SARS-CoV-2 (COVID-19) and Respiratory syncytial virus RNAOrdered By: Franco Inman on 12-04-2024 SARS-CoV-2 (COVID-19) RNA KANDY+probe Ql (Unsp spec) [facility] Lipaseon 12-04-2024 Lipase [Catalytic activity/Vol] 25 U/L Normal - [facility] Comment on above: Result Comment: Jenny capellan note:LIPASE revised reference range effective 23.New Lipase methodology. Expected to produce lower valuesthan the previous assay method.NEW Reference Range: 13 - 75 U/L Performed By: #### L 501.2450 ####[facility] [address] [place], [address] Lipase measurementOrdered By : Franco Inman on 12-04-2024 Lipase [Catalytic activity/Vol] 25 U/L - [facility] Comment on above: Please note:LIPASE r evised reference range effective 23. New Lipase methodology. Expected to produce lower values than the previous assay method. NEW Reference Range: 13 - 75 U/L Lipase measurement 25 U/L -75 [facility] Lymphocytes Auto (Unsp spec) [#/Vol]Ordered By: Franco Inman on 12-04-2024 Lymphocytes (Bld) [#/Vol] 0.96 10*3/uL 0.83-4.51 [facility] Lymphocytes/100 WBC Auto (Un sp spec)Ordered By: Franco Inman on 12-04-2024 Lymphocytes/100 WBC (Bld) 6.8 % Low 19-41 [facility] M100.678on 12-04-2024 M100.678 Pending SARS-CoV-2 (COVID 19) Negative INFLUENZA A Negative INFLUENZA B Negative RSV PCR Negative Normal [facility] Comment on above: Performed By: #### M 100.583 ####[facility] [address] [place], [address] MCV (mean corpuscular volume ) determinationOrdered By: Franco Inman on 12-04-2024 MCV (RBC) [Entitic vol] 83.4 fL 81-99 [facility] Mean corpuscular hemoglobin (MCH) determinationOrdered By: Franco Inman on 12-04-2024 MCH (RBC) [Entitic mass] 26.9 pg Low 27.0-32.0 [facility] Mean corpuscular hemoglobin concentration (MCHC) determinationOrdered By: Franco Inman on 12-04-2024 MCHC (RBC) [Mass/Vol] 32.3 g/dL 32-36 [facility] Mean platelet volume determi nationOrdered By: Franco Inman on 12-04-2024 Platelet mean volume (Bld) [Entitic vol] 10.2 fL 6.2-12.0 [facility] Monocyte percentageOrdered B y: Franco Inman on 12-04-2024 Monocytes/100 WBC (Bld) 10.4 % High 0-10 [facility] Neutrophil percentageOrdered By: Franco Inman on 12-04-2024 Neutrophils/100 WBC (Bld) 80.5 % High 47-70 [facility] No Panel InformationOrdered By: Aleta Aguayo on 12-04-2024 Blood Gas Sample Site R Radial [facility] Blood Gas Specimen Type ART [facility] Blood Gas Vent Mode Not entered [facility] Oxygen Delivery Device Cannula [facility] Nucleated red blood cell per centageOrdered By: Franco Inman on 12-04-2024 Nucleated RBC/100 WBC (Bld) [Ratio] 0 % 0-5 [facility] Oxygen saturation measuremen tOrdered By: Aleta Aguayo on 12-04-2024 Blood Gas Oxygen Saturation 89 % Low 95-99 [facility] Partial pressure of carbon d ioxide measurementOrdered By: Aleta Aguayo on 12-04-2024 Arterial Blood Partial Pressure CO2 65.4 mmHg High 35-45 [facility] Partial pressure of oxygen m easurementOrdered By: Aleta Aguayo on 12-04-2024 Arterial Blood Partial Pressure O2 68 mmHG Low 75-100 [facility] Platelet countOrdered By: Leo Inman on 12-04-2024 Platelets (Bld) [#/Vol] 271 10*3/uL 150-450 [facility] Potassium (Unsp spec) [Mass/ Vol]Ordered By: Franco Inman on 12-04-2024 Potassium [Moles/Vol] 4.2 mmol/L 3.3-5.1 [facility] RBC Auto (Bld) [#/Vol]Ordere d By: Franco Inman on 12-04-2024 RBC (Bld) [#/Vol] 5.24 10*6/uL 4.2-5.4 [facility] Respiratory pathogens DNA an d RNA panel KANDY+probe (Resp)Ordered By: Aleta Aguayo on 12-04-2024 Respiratory Panel (PCR) [facility] Respiratory pathogens detect ion panel by molecular detection methodOrdered By: Aleta Aguayo on 12-04-2024 Respiratory pathogens DNA and RNA panel KANDY+probe (Resp) [facility] Serum creatinine measurement (mass/volume)Ordered By: Franco Inman on 12-04-2024 Creatinine [Mass/Vol] 0.92 mg/dL 0.70-1.20 [facility] Serum glucose measurement (m ass/volume)Ordered By: Franco Inman on 12-04-2024 Glucose [Mass/Vol] 118 mg/dL High 70-99 [facility] Serum or plasma calcium esthela urement (mass/volume)Ordered By: Franco Inman on 12-04-2024 Calcium [Mass/Vol] 9.2 mg/dL 7.6-11.0 [facility] Serum or plasma urea nitroge n measurement (mass/volume)Ordered By: Franco Inman on 12-04-2024 Urea nitrogen [Mass/Vol] 10 mg/dL 4-19 [facility] Sodium levelOrdered By: Franco Inman on 12-04-2024 Sodium [Moles/Vol] 137 mmol/L 133-145 [facility] Total carbon dioxide measure mentOrdered By: Aleta Aguayo on 12-04-2024 Blood Gas Total CO2 30 mmol/L [facility] White blood cell (WBC) count Ordered By: Franco Inman on 12-04-2024 WBC (Bld) [#/Vol] 14.1 10*3/uL High 4.4-11.0 [facility] pH (Unsp spec)Ordered By: Malinda Aguayo on 12-04-2024 Blood Gas pH 7.24 Low 7.35-7.45 [facility] ANES POSTPROC EVALon 025 ANES POSTPROC EVAL HNO ID: [id number] Author: EDUARD GALEANO MD Service: ? Author [...] Scheduled Providers: Jane Farrell MD; Adrian Laird APRN.IMAGING AIDE; Eduard Galeano MD Responsible Provider: Eduard Galeano [...] December 01, 2024 TIME: 11:19 AM CSN: [id number] Normal [facility] ANES PRE-OPon 12-01-2024 ANES PRE-OP HNO ID: [id number] Author: EDUARD GALEANO MD Service: ? Author Type: Anesthesiologist Type: Anesthesia Preprocedure Evaluation Filed: 12/01/2024 10:04 Note Text: ANESTHESIOLOGY DAY OF SURGERY NOTE : 1965 Procedure Information Anesthesia Start Date/Time: 12/01/24 1002 Scheduled providers: Jane Farrell MD; Adrian Laird APRN.IMAGING AIDE; Eduard Galeano MD Procedure: EGD - THERAPEUTIC, [...] and consent discussed: yes. Patient / Responsible Republican agrees to proceed: yes Patient / Surrogate [...] capsule by mouth at bedtime as needed. nchgvz-xjotpsij-cvmuvoy (CREON 24) 24,000-76,000 -120,000 unit delayed release [...] This conta (more content not included)... Normal [facility] 12-01-2024 [facility] Telephone ([facility]) -------- GRACIE BANUELOS ([id number]) 1965 F Date Time Provider Department 12/01/24 JANE FARRELL [facility] During your visit today, we recorded the following information about you: Jane Farrell MD 12/01/2024 12:00 PM Signed Orders Allergies As of Date: 12/01/2024 Noted Allergy Reaction BACTRIM (SULFAMETHOXAZOLE-TRIMET H*11/28/2022 4 - Hives HYDROCODONE 08/02/2020 9 - Itching PENICILLINS 07/07/2006 14 - Other: See Comments Comments: kimani VALIUM (DIAZEPAM) 11/02/2013 14 - Other: See Comments Comments: cross reaction with alcohol addiction Date Reviewed: 12/01/2024 Reviewed by: Reshma Telles RN - Fully Assessed Reason for Visit: Endoscopy Call [1773] Primary Visit Diagnosis:Other chronic pancreatitis (HCC) [K86.1] Order(s):ERCP [GI18] Order #: [id number] FUTURE Prescriptions as of 12/01/2024 - pantoprazole [...] by mouth at bedtime as needed. - krmogv-lenvwuwe-bgoknxd (CREON 24) 24,000-76,000 -120,000 unit delayed release [...] stress female [N39.3] 11/24/2014 HPV test positive [TWZ4795] 11/24/2014 Alcohol dependence in remission (HCC) [F10.21] [...] Status:Closed by JANE FARRELL on 12/01/24 Normal [facility] EGD Study observation Narrat iveon 12-01-2024 [facility] Radiology Study observation (narrative) [facility] NURSING PROGon 12-01-2024 NURSING PROG HNO ID: [id number] Author: RESHMA TELLES RN Service: Nursing Author [...] Electronically Signed By: Reshma Telles RN Normal [facility] NURSING PROG HNO ID: [id number] Author: KATHIE DORANTES RN Service: ? Author [...] Kathie Dorantes RN In Department: GASTROENTEROLOGY Normal [facility] GRACIE BANUELOS ([id number]) 1965 F Date Time Provider Department 11/25/24 RAISA JIMENEZ [place] During your visit today, we recorded the [...] by mouth at bedtime as needed. - oonqxc-ltinshvp-duxqshs (CREON 24) 24,000-76,000 -120,000 unit delayed release [...] stress female [N39.3] 11/24/2014 HPV test positive [[id number]] 11/24/2014 Alcohol dependence in remission (HCC) [F10.21] [...] Encounter Status:Closed by RAISA JIMENEZ on 11/25/24 [facility] Telephone (GASTMN) -------- GRACIE BANUELOS ([id number]) 1965 F Date Time Provider Department 11/25/24 JANE FARRELLMN During your visit today, we recorded the [...] you do prescribe or if you won't [phone] (does not use MyChart) Juan Abbott LPN [...] by mouth at bedtime as needed. - kioayt-fgkoewct-fxhjmxs (CREON 24) 24,000-76,000 -120,000 unit delayed release [...] stress female [N39.3] 11/24/2014 HPV test positive [ECD6184] 11/24/2014 Alcohol dependence in remission (HCC) [F10.21] 07/10/2015 11/02/2018 Pulmonary emphysema (HCC) [J43.9] 11/27/2015 Irritable bowel syndrome with both constipation*08/27/2017 Alcohol use disorder, moderate, dependence (HCC*08/27/2017 DDD (degenerative disc disease), cervical [M50.*09/03/2018 Severe protein-calorie malnutrition (HCC) [E43] 01/07/2019 12/26/2022 Chronic recurrent pancreatitis (HCC) [K86.1] 01/07/2019 Reactive depression [F32.9] 04/28/2019 Alcohol-induced chronic pancreatitis (HCC) [K86*07/26/2019 Mo (more content not included)... Normal [facility] NURSING PROGon 11-24-2024 NURSING PROG HNO ID: [id number] Author: CARROLL LEBLANC RN Service: ? Author Type: Registered Nurse Type: Nursing Progress Note Filed: 11/24/2024 16:10 Note Text: Attempted to reach the patient at the contact number that they provided [phone] (home) . Unable to speak with patient so without identifying the patient the following information was left on their voice mail: Date of procedure, location and report time Prep instructions A message was left informing the patient/patient service representative they must have a responsible [...] Number to call with questions or concerns [phone] Number to call to cancel their procedure [phone] Carroll Leblanc RN [facility] Matteo 11-08-2024 CNPN Telephone (INTMWS) -------- GRACIE BANUELOS ([id number]) 1965 F Date Time Provider Department 11/08/24 [...] please ask her to use it. RegardsMisbah MD, Rachel L, MA 11/09/2024 11:41 AM [...] by mouth at bedtime as needed. - ltfaoa-ompkcqev-czdzkeu (CREON 24) 24,000-76,000 -120,000 unit delayed release [...] stress female [N39.3] 11/24/2014 HPV test positive [[id number]] 11/24/2014 Alcohol dependence in remission (HCC) [F10.21] 07/10/2015 11/02/2018 Pulmonary emphysema (HCC) [J43.9] 11/27/2015 Irritable bowel syndrome with both constipation*08/27/2017 Alcohol use disorder, moderate, dependence (HCC*08/27/2017 DDD (degenerative disc disease), cervical [M50.*09/03/2018 Severe protein-calorie malnutrition (HCC) [E43] 01/07/2019 12/26/2022 Chronic recurrent pancreatitis (HCC) [K86.1] 01/07/2019 Reactive depression [F32.9] 04/28/2019 Alcohol-induced chronic pancreatitis (HCC) [K86*07/26 (more content not included)... Normal [facility] CNOVon 11-07-2024 CNOV Office Visit (INTMWS ) -------- GRACIE BANUELOS ([id number]) 1965 F Date Time Provider Department 11/07/24 2:00 PM MISBAH ELKINS INTDILSHAD During your visit today, we recorded [...] anxiety and depression. She was admitted to [facility] from 01/01 to 01/04 for [...] as needed (more content not included)... Normal [facility] XR CHEST 2V FRONTAL/LATon XR CHEST [...] tissues: Unremarkable. IMPRESSION: No acute radiographic abnormality. Simulation Educator: BABATUNDE Transcribe Date/Time: Nov 07 2024 4:49P Dictated by : EDUARDO MATTHEWS MD This examination was interpreted and the report reviewed and electronically signed by: EDUARDO MATTHEWS MD on Nov 07 2024 4:49PM EST [id number] Normal [facility] XR Chest PA and Lateralon IMPRESSION: No acute radiographic abnormality. Simulation Educator: BABATUNDE Transcribe Date/Time: Nov 07 2024 4:49P [...] soft tissues: Unremarkable. DIVISION OF RADIOLOGY Provider, [facility] - 11/07/2024 * * *Final Report* [...] Unremarkable. IMPRESSION IMPRESSION: No acute radiographic abnormality. Simulation Educator: PSCB Transcribe Date/Time: Nov 07 2024 4:49P Dictated by : EDUARDO MATTHEWS MD This examination was interpreted and the report reviewed and electronically signed by: EDUARDO MATTHEWS MD on Nov 07 2024 4:49PM EST [facility] Radiology Study observation (narrative) [facility] XR Chest PA and LateralOrder ed By: Ccf Provider on 11-07-2024 [facility] Matteo 08-31-2024 [facility] -------- BANUELOSGRACIE ([id number]) 1965 F Date Time Provider Department 08/31/24 [facility] During your visit today, we recorded the [...] am reconsulting her. Thank you Soila Easton APRN.[facility] Allergies As of Date: 08/31/2024 Noted Allergy [...] chronic pancreatitis (HCC) [K86.0] Order(s):CONSULT TO GASTROENTEROLOGY [9032] Order #: [id number]: 1 FUTURE Prescriptions as of 02/06/2025 - [...] stress female [N39.3] 11/24/2014 HPV test positive [[id number]] 11/24/2014 Alcohol dependence in remission (HCC) [F10.21] 07/10/2015 11/02/2018 Pulmonary emphysema (HCC) [J43.9] 11/27/2015 Irritable bowel syndrome with both constipation*08/27/2017 Alcohol use di (more content not included)... Normal [facility] CT ABD/PEL W IVCONon 024 CT ABD/PEL W IVCON * * *Final Report* * * DATE OF EXAM: Aug 23 2024 9:53AM [facility] 0530 - CT ABD/PEL W IVCON [...] finding of the abdomen or pelvis seen. Simulation Educator: [facility] Transcribe Date/Time: Aug 25 2024 10:38P Dictated by : YIN HERNANDEZ MD This examination was interpreted and the report reviewed and electronically signed by: YIN HERNANDEZ MD on Aug 25 2024 10:47PM EST [id number] [facility] Telephone (INTMWS) -------- GRACIE BANUELOS ([id number]) 1965 [place] Yane[place]* Date Time Provider Department 08/19/24 MISBAH ELKINS During your visit today, we recorded the following information about you: Maribeth Owen LPN 08/19/2024 11:37 AM Signed Pt called in to reports she is still getting the Lexapro in her packs. I called [facility] and they will pick her packs [...] 1 tablet by mouth once daily. - gymjoq-nttcakwt-ixtfumb (CREON 24) 24,000-76,000 -120,000 unit delayed release [...] stress female [N39.3] 11/24/2014 HPV test positive [[id number]] 11/24/2014 Alcohol dependence in remission (HCC) [F10.21] [...] Encounter Status:Closed by MARIBETH OWEN on 08/19/24 [facility] Mikel 08-15-2024 CNOV Office Visit (INTMWS ) -------- GRACIE BANUELOS ([id number]) 1965 F [place]* Date Time Provider [...] shortness of breath all improving. Goes to [facility] with next routine exam in September. [...] Take 1 tablet by mouth once daily. indixl-rvzrzbou-onxoynz (CREON 24) 24,000-76,000 -120,000 unit delayed release [...] daily. panto (more content not included)... Normal [facility] Amylase SerPl-cCncon 024 Amylase [Catalytic activity/Vol] 104 U/L Normal 30-104 [facility] Comment on above: Order Comment: Speci men Type: BLOOD SPECIMEN Ordering Facility: [facility] Address: [address] [place] [address] Performed By: #### 2 4323-8, 3039-3, 1798-04 #### [facility] CLIA [id number] [address] [place] [address] [place] Comprehensive metabolic 2000 panelon 08-12-2024 Albumin [Mass/Vol] 4.4 g/dL Normal 3.9-4.9 [facility] Comment on above: Order Comment: Speci men Type: BLOOD SPECIMEN Ordering Facility: [facility] Address: [address] [place] [address] Performed By: #### 2 4323-8, 3039-3, 1798-04 #### [facility] CLIA [id number] [address] [place] [address] [place] ALP [Catalytic activity/Vol] 142 U/L High 34-123 [facility] Comment on above: Order Comment: Speci men Type: BLOOD SPECIMEN Ordering Facility: [facility] Address: [address] [place] [address] Performed By: #### 2 4323-8, 3039-3, 1798-04 #### [facility] CLIA [id number] [address] [place] [address] [place] ALT [Catalytic activity/Vol] 12 U/L Normal 7-38 [facility] Comment on above: Order Comment: Speci men Type: BLOOD SPECIMEN Ordering Facility: [facility] Address: [address] [place] [address] Performed By: #### 2 4323-8, 3039-3, 1798-04 #### [facility] CLIA [id number] [address] [address] [place] Anion gap [Moles/Vol] 12 mmol/L Normal 8-15 [facility] Comment on above: Order Comment: Speci men Type: BLOOD SPECIMEN Ordering Facility: [facility] Address: [address] [place] [address] Performed By: #### 2 4323-8, 3, 1798-04 #### [facility] CLIA [id number] [address] [place], [place] [address] [place] AST [Catalytic activity/Vol] 15 U/L Normal 13-35 [facility] Comment on above: Order Comment: Speci men Type: BLOOD SPECIMEN Ordering Facility: [facility] Address: [address] [place] [address] Performed By: #### 2 4323-8, 3, 1798-04 #### [facility] CLIA [id number] [address] [place] [address] [place] Bilirubin [Mass/Vol] 0.2 mg/dL Normal 0.2-1.3 [facility] Comment on above: Order Comment: Speci men Type: BLOOD SPECIMEN Ordering Facility: [facility] Address: [address] [place], [place] [address] Performed By: #### 2 4323-8, 3, 1798-04 #### [facility] CLIA [id number] [address] [place], [place] [address] [place] Calcium [Mass/Vol] 9.6 mg/dL Normal 8.5-10.2 [facility] Comment on above: Order Comment: Speci men Type: BLOOD SPECIMEN Ordering Facility: [facility] Address: [address] [place], [place] [address] Performed By: #### 2 4323-8, 3, 1798-04 #### [facility] CLIA [id number] [address] [place] [address] [place] Chloride [Moles/Vol] 97 mmol/L Low 98-107 [facility] Comment on above: Order Comment: Speci men Type: BLOOD SPECIMEN Ordering Facility: [facility] Address: [address] [place] [address] Performed By: #### 2 4323-8, 3040-3, 8 #### [facility] CLIA [id number] [address] [place] [address] [place] CO2 [Moles/Vol] 26 mmol/L Normal 22-30 [facility] Comment on above: Order Comment: Speci men Type: BLOOD SPECIMEN Ordering Facility: [facility] Address: [address] [place] [address] Performed By: #### 2 4323-8, 0-3, 8 #### [facility] CLIA [id number] [address] [place] [address] [place] Creatinine [Mass/Vol] 0.82 mg/dL Normal 0.58-0.96 [facility] Comment on above: Order Comment: Speci men Type: BLOOD SPECIMEN Ordering Facility: [facility] Address: [address] [place] [address] Performed By: #### 2 4323-8, 3039-3, 8 #### [facility] CLIA [id number] [address] [place] [address] [place] Creatinine and Glomerular filtration rate.predicted panel (S/P/Bld) 81 mL/min/1.73m??? Normal >=60 [facility] Comment on above: Order Comment: Speci men Type: BLOOD SPECIMEN Ordering Facility: [facility] Address: [address] [place] [address] Result Comment: Pavan mated Glomerular Filtration Rate [...] By: #### 2 4323-8, 3039-3, 1798-04 #### [facility] CLIA [id number] [address] [address] [place] Glucose [Mass/Vol] 101 mg/dL High 74-99 [facility] Comment on above: Order Comment: Reggie fajardo Type: BLOOD SPECIMEN Ordering Facility: [facility] Address: [address] [place] [address] Result Comment: The [place] Diabetes Association (ADA) provides guidance for cutoff [...] Standards of Medical Care in Diabetes 2016, [place] Diabetes Association. Diabetes Care. 2016.39(Suppl 1). Performed By: #### 2 4323-8, 3, 1798-04 #### [facility] CLIA [id number] [address] [place] [address] [place] Potassium [Moles/Vol] 4.6 mmol/L Normal 3.7-5.1 [facility] Comment on above: Order Comment: Reggie fajardo Type: BLOOD SPECIMEN Ordering Facility: [facility] Address: [address] [place] [address] Performed By: #### 2 4323-8, 3, 1798-04 #### [facility] CLIA [id number] [address] [address] [place] Protein [Mass/Vol] 7.7 g/dL Normal 6.3-8.0 [facility] Comment on above: Order Comment: Speci men Type: BLOOD SPECIMEN Ordering Facility: [facility] Address: [address] [place] [address] Performed By: #### 2 4323-8, 3, 1798-04 #### [facility] CLIA [id number] [address] [place] [address] [place] Sodium [Moles/Vol] 135 mmol/L Low 136-144 [facility] Comment on above: Order Comment: Speci men Type: BLOOD SPECIMEN Ordering Facility: [facility] Address: [address] [place] [address] Performed By: #### 2 4323-8, 3, 1798-04 #### [facility] CLIA [id number] [address] [place] [address] [place] Urea nitrogen [Mass/Vol] 15 mg/dL Normal 7-21 [facility] Comment on above: Order Comment: Speci men Type: BLOOD SPECIMEN Ordering Facility: [facility] Address: [address] [place] [address] Performed By: #### 2 4323-8, 3039-11, 1798-04 #### [facility] CLIA [id number] [address] [place] [address] [place] HbA1c (Bld)on 08-12-2024 Average glucose Estimated from glycated hemoglobin (Bld) [Mass/Vol] 131 mg/dL Normal [facility] Comment on above: Order Comment: Speci men Type: BLOOD SPECIMENOrdering Facility: [facility] Address: [address] [place] [address] Result Comment: eAG: (Estimated average glucose) is a calculated value from HgbA1c and is service representative of the average blood glucose level in the last 2-3 month period. Performed By: #### 5 5454-3 ####[facility] [id number] [place] [address] [place] HbA1c (Bld) [Mass fraction] 6.2 % High 4.3-5.6 [facility] Comment on above: Order Comment: Reggie fajardo Type: BLOOD SPECIMENOrdering Facility: [facility] Address: [address] [place] [address] Result Comment: Amer [place] Diabetes Association guidelines indicate that patients with HgbA1c in the range 5.7-6.4% are at increased risk for development of diabetes, and intervention by lifestyle modification may be beneficial. HgbA1c greater or equal to 6.5% is considered diagnostic of diabetes. Performed By: #### 5 5454-3 ####[facility] [id number] [place] [address] [place] Lipase SerPl-cCncon 08-12-20 24 Lipase [Catalytic activity/Vol] 87 U/L High 16-61 [facility] Comment on above: Order Comment: Reggie fajardo Type: BLOOD SPECIMEN Ordering Facility: [facility] Address: [address] [place] [address] Performed By: #### 2 4323-8, 3040-3, 1798-8 #### [facility] CLIA [id number] [address] [place] [address] [place] Matteo 08-11-2024 CNPN Telephone (INTWS) -------- GRACIE BANUELOS ([id number]) 1965 [place]* Date Time Provider Department 08/11/24 MISBAH ELKINS INTWS During your visit today, we recorded the following information about you: Maribeth Owen LPN 08/11/2024 3:21 PM Signed ----- Message from Soila Easton APRN.[employer] sent at 08/11/2024 3:16 PM EST ----- [...] 1 tablet by mouth once daily. - mctmaj-xrdhjycy-rvapsem (CREON 24) 24,000-76,000 -120,000 unit delayed release [...] stress female [N39.3] 11/24/2014 HPV test positive [SNU0706] 11/24/2014 Alcohol dependence in remission (HCC) [F10.21] [...] colonic polyps (more content not included)... Normal [facility] CNOVon 08-10-2024 CNOV Office Visit (INTMWS ) -------- GRACIE BANUELOS Salvatore ([id number]) 1965 [place] Yanez* Date Time Provider Department 08/10/24 5:00 PM [...] Stage 3 severe COPD by GOLD classification ([facility]) 2018 Tobacco use greater than 30 years [...] Take 1 tablet by mouth once daily. hunqla-aesygeeq-qipytav (CREON 24) 24,000-76,000 -120,000 unit delayed release [...] by m (more content not included)... Normal [facility] Matteo 08-10-2024 [facility] Telephone (INTMWS) -------- GRACIE BANUELOS ([id number]) 1965 [place]* Date Time Provider [...] 1 tablet by mouth once daily. - sldevv-ixnwndxd-qmimsmb (CREON 24) 24,000-76,000 -120,000 unit delayed release [...] stress female [N39.3] 11/24/2014 HPV test positive [QTR6262] 11/24/2014 Alcohol dependence in remission (HCC) [F10.21] 07/10/2015 11/02/2018 Pulmonary emphysema (HCC) [J43.9] 11/27/2015 Irritable bowel syndrome with both constipation*08/27/2017 Alcohol use disorder, moderate, dependence (HCC*08/27/2017 DDD (de (more content not included)... Normal [facility] UA DIP, URINE (POC)on 2023 BILIRUBIN UA (POCT) Negative Negative [facility] CLARITY UA (POCT) Clear [facility] COLOR UA (POCT) Yellow [facility] GLUCOSE UA (POCT) Negative Negative mg/dL [facility] Hemoglobin Ql (U) Negative Negative [facility] KETONE UA (POCT) Negative Negative mg/dL [facility] LEUKOCYTES UA (POCT) Negative Negative [facility] NITRITE UA (POCT) Negative [facility] PH UA (POCT) 6.0 4.5 - 8.0 [facility] Protein Ql (U) Negative Negative mg/dL [facility] SPECIFIC GRAVITY UA (POCT) 1.010 1.005 - 1.030 [facility] UROBILINOGEN UA (POCT) 0.2 Regina l E.U./dL [facility] Location:[address], [place], [place], [id number] [place] [address] POINT OF CARE [facility] XR CHEST 2V FRONTAL/LATon XR CHEST [...] tissues: Unremarkable. IMPRESSION: No acute radiographic abnormality. Simulation Educator: PSCB Transcribe Date/Time: Aug 11 2024 2:55P Dictated by : JEAN-CLAUDE MANRIQUEZ MD This examination was interpreted and the report reviewed and electronically signed by: JEAN-CLAUDE MANRIQUEZ MD on Aug 11 2024 2:56PM EST [id number] Normal [facility] CBC W Auto Differential pane l (Bld)on 08-05-2024 Basophils (Bld) [#/Vol] 0.16 10*3/uL High <0.11 [facility] Comment on above: Order Comment: Speci men Type: BLOOD SPECIMENOrdering Facility: [facility] Address: [address] [place] [address] Performed By: #### 5 7021-8 ####[facility] [id number] [place] [address] [place] Basophils/100 WBC (Bld) 1.1 % Normal [facility] Comment on above: Order Comment: Speci men Type: BLOOD SPECIMENOrdering Facility: [facility] Address: [address] [place] [address] Performed By: #### 5 7021-8 ####[facility] [id number] [place] [address] [place] Differential cell count method Nom (Bld) Auto Normal [facility] Comment on above: Order Comment: Speci men Type: BLOOD SPECIMENOrdering Facility: [facility] Address: [address] [place] [address] Performed By: #### 5 7021-8 ####[facility] [id number] [place] [address] [place] Eosinophils (Bld) [#/Vol] 0.39 10*3/uL Normal <0.46 [facility] Comment on above: Order Comment: Speci men Type: BLOOD SPECIMENOrdering Facility: [facility] Address: [address] [place] [address] Performed By: #### 5 7021-8 ####[facility] [id number] [place] [address] [place] Eosinophils/100 WBC (Bld) 2.7 % Normal [facility] Comment on above: Order Comment: Speci men Type: BLOOD SPECIMENOrdering Facility: [facility] Address: [address] [place] [address] Performed By: #### 5 7021-8 ####[facility] [id number] [place] [address] [place] Erythrocyte distribution width (RBC) [Ratio] 15.7 % High 11.5-15.0 [facility] Comment on above: Order Comment: Speci men Type: BLOOD SPECIMENOrdering Facility: [facility] Address: [address] [place] [address] Performed By: #### 5 7021-8 ####[facility] [id number] [place] [address] [place] Hematocrit (Bld) [Volume fraction] 42.5 % Normal 36.0-46.0 [facility] Comment on above: Order Comment: Speci men Type: BLOOD SPECIMENOrdering Facility: [facility] Address: [address] [place] [address] Performed By: #### 5 7021-8 ####[facility] [id number] [place] [address] [place] Hemoglobin (Bld) [Mass/Vol] 13.6 g/dL Normal 11.5-15.5 [facility] Comment on above: Order Comment: Speci men Type: BLOOD SPECIMENOrdering Facility: [facility] Address: [address] [place] [address] Performed By: #### 5 7021-8 ####[facility] [id number] [place] [address] [place] Immature granulocytes (Bld) [#/Vol] 0.12 10*3/uL High <0.10 [facility] Comment on above: Order Comment: Speci men Type: BLOOD SPECIMENOrdering Facility: [facility] Address: [address] [place] [address] Performed By: #### 5 7021-8 ####[facility] [id number] [place] [address] [place] Immature granulocytes/100 WBC (Bld) 0.8 % Normal [facility] Comment on above: Order Comment: Speci men Type: BLOOD SPECIMENOrdering Facility: [facility] Address: [address] [place] [address] Performed By: #### 5 7021-8 ####[facility] [id number] [place] [address] [place] Lymphocytes (Bld) [#/Vol] 3.77 10*3/uL Normal 1.00-4.00 [facility] Comment on above: Order Comment: Speci men Type: BLOOD SPECIMENOrdering Facility: [facility] Address: [address] [place] [address] Performed By: #### 5 7021-8 ####[facility] [id number] [place] [address] [place] Lymphocytes/100 WBC (Bld) 26.5 % Normal [facility] Comment on above: Order Comment: Speci men Type: BLOOD SPECIMENOrdering Facility: [facility] Address: [address] [place] [address] Performed By: #### 5 7021-8 ####[facility] [id number] [place] [address] [place] MCH (RBC) [Entitic mass] 26.8 pg Normal 26.0-34.0 [facility] Comment on above: Order Comment: Speci men Type: BLOOD SPECIMENOrdering Facility: [facility] Address: [address] [place] [address] Performed By: #### 5 7021-8 ####[facility] [id number] [place] [address] [place] MCHC (RBC) [Mass/Vol] 32.0 g/dL Normal 30.5-36.0 [facility] Comment on above: Order Comment: Speci men Type: BLOOD SPECIMENOrdering Facility: [facility] Address: [address] [place] [address] Performed By: #### 5 7021-8 ####[facility] [id number] [place] [address] [place] MCV (RBC) [Entitic vol] 83.8 fL Normal 80.0-100.0 [facility] Comment on above: Order Comment: Speci men Type: BLOOD SPECIMENOrdering Facility: [facility] Address: [address] [place] [address] Performed By: #### 5 7021-8 ####[facility] [id number] [place] [address] [place] Monocytes (Bld) [#/Vol] 1.27 10*3/uL High <0.87 [facility] Comment on above: Order Comment: Speci men Type: BLOOD SPECIMENOrdering Facility: [facility] Address: [address] [place] [address] Performed By: #### 5 7021-8 ####[facility] [id number] [place] [address] [place] Monocytes/100 WBC (Bld) 8.9 % Normal [facility] Comment on above: Order Comment: Speci men Type: BLOOD SPECIMENOrdering Facility: [facility] Address: [address] [place] [address] Performed By: #### 5 7021-8 ####[facility] [id number] [place] [address] [place] Neutrophils (Bld) [#/Vol] 8.50 10*3/uL High 1.45-7.50 [facility] Comment on above: Order Comment: Speci men Type: BLOOD SPECIMENOrdering Facility: [facility] Address: [address] [place] [address] Performed By: #### 5 7021-8 ####[facility] [id number] [place] [address] [place] Neutrophils/100 WBC (Bld) 60.0 % Normal [facility] Comment on above: Order Comment: Speci men Type: BLOOD SPECIMENOrdering Facility: [facility] Address: [address] [place] [address] Performed By: #### 5 7021-8 ####[facility] [id number] [place] [address] [place] Nucleated RBC (Bld) [#/Vol] 10*3/uL Normal <0.01 [facility] Comment on above: Order Comment: Speci men Type: BLOOD SPECIMENOrdering Facility: [facility] Address: [address] [place] [address] Performed By: #### 5 7021-8 ####[facility] [id number] [place] [address] [place] Nucleated RBC/100 WBC (Bld) [Ratio] 0.0 /100 WBC Normal [facility] Comment on above: Order Comment: Speci men Type: BLOOD SPECIMENOrdering Facility: [facility] Address: [address] [place] [address] Performed By: #### 5 7021-8 ####[facility] [id number] [place] [address] [place] Platelet mean volume (Bld) [Entitic vol] 10.5 fL Normal 9.0-12.7 [facility] Comment on above: Order Comment: Speci men Type: BLOOD SPECIMENOrdering Facility: [facility] Address: [address] [place] [address] Performed By: #### 5 7021-8 ####[facility] [id number] [place] [address] [place] Platelets (Bld) [#/Vol] 340 10*3/uL Normal 150-400 [facility] Comment on above: Order Comment: Speci men Type: BLOOD SPECIMENOrdering Facility: [facility] Address: [address] [place] [address] Performed By: #### 5 7021-8 ####[facility] [id number] [place] [address] [place] RBC (Bld) [#/Vol] 5.07 10*6/uL Normal 3.90-5.20 [facility] Comment on above: Order Comment: Speci men Type: BLOOD SPECIMENOrdering Facility: [facility] Address: [address] [place] [address] Performed By: #### 5 7021-8 ####[facility] [id number] [place] [id number] [place] WBC (Bld) [#/Vol] 14.21 10*3/uL High 3.70-11.00 [facility] Comment on above: Order Comment: Speci men Type: BLOOD SPECIMENOrdering Facility: [facility] Address: [address] [place] [address] Performed By: #### 5 7021-8 ####[facility] [id number] [place] [id number] [place] CNOVon 08-05-2024 CNOV Office Visit (INTMWS ) -------- GRACIE BANUELOS ([id number]) 1965 [place] Date Time Provider [...] anxiety and depression. She was admitted to [facility] from 01/01 to 01/04 for [...] to infectious organism 2017 Severe protein-calorie malnutrition ([facility]) 01/07/2019 Stage 3 severe COPD by GOLD classification ([facility]) 2018 Tobacco use greater than 30 years Unspecified hemorrhoids without mention of complication Urine, incontinence, stress female 11/24/2014 PAST SURGICAL HISTORY Procedure Laterality Date APPENDECTOMY at age 14 COLONOSCOPY 04/15/[address], [address] Paul Perez. COLONOSCOPY 01/23/2015 2-Tubular adenomas. D (more content not included)... Normal [facility] CNCOon 07-13-2024 CNCO Letter Text Normal [facility] XR Chest PA and Lateralon IMPRESSION: Bibasilar pulmonary infiltrates versus atelectasis. Simulation Educator: PSCB Transcribe Date/Time: Jan 27 2024 4:18P Dictated by : CHELA GAMING MD This examination was interpreted and the report reviewed and electronically signed by: CHELA GAMING MD on Jan 27 2024 4:20PM [facility] DIVISION OF RADIOLOGY * * *Final Report* [...] shows degenerative changes. DIVISION OF RADIOLOGY Provider, [facility] - 01/27/2024 * * *Final Report* [...] IMPRESSION IMPRESSION: Bibasilar pulmonary infiltrates versus atelectasis. Simulation Educator: PSCB Transcribe Date/Time: Jan 27 2024 4:18P Dictated by : CHELA GAMING MD This examination was interpreted and the report reviewed and electronically signed by: CHELA GAMING MD on Jan 27 2024 4:20PM EST [facility] XR Chest PA and LateralOrder ed By: [facility] Provider on 01-27-2024 [facility] XR Chest PA and Lateralon Radiology Study observation (narrative) [facility] Absolute lymphocyte countOrd ered By: Bert Greenwood on 01-05-2024 Lymphocytes Auto (Unsp spec) [#/Vol] 3.82 10*3/uL 0.83-4.51 [facility] Basophil percentageOrdered B y: Bert Greenwood on 01-05-2024 Basophil percentage Not Reportable W [facility] Chloride [Moles/Vol] 99 mmol/L 98-107 [facility] Glucose [Mass/Vol] 122 mg/dL 74-106 [facility] Comment on above: Fasting Glucose resu lt from 100 to 125 mg/dL suggests IMPAIRED HOMEOSTASIS per A.D.A. criteria. Hemoglobin (Bld) [Mass/Vol] 13.1 g/dL 12.0-15.0 [facility] Neutrophils (Bld) [#/Vol] 24.7 10*3/uL 2.0-7.7 [facility] Potassium [Moles/Vol] 5.0 mmol/L 3.5-5.1 [facility] Sodium [Moles/Vol] 132 mmol/L 136-145 [facility] WBC (Bld) [#/Vol] 29.4 10*3/uL 4.4-11.0 [facility] Blood band neutrophil count as percentage of total leukocytesOrdered By: Bert Greenwood on 01-05-2024 Band form neutrophils/100 WBC (Bld) 3 % 0-5 [facility] Blood lymphocytes/100 leukoc ytesOrdered By: Bert Greenwood on 01-05-2024 Lymphocytes/100 WBC (Bld) 13 % 19-41 [facility] Blood monocytes/100 leukocyt esOrdered By: Bert Greenwood on 01-05-2024 Monocytes/100 WBC (Bld) 2 % 0-10 [facility] Blood platelet adequacy dete ction by light microscopyOrdered By: Bert Greenwood on 01-05-2024 Platelets LM Ql (Bld) MOD INC ADEQ [facility] Blood segmented neutrophils/ 100 leukocytesOrdered By: Bert Greenwood on 01-05-2024 Segmented neutrophils/100 WBC (Bld) 81 % 47-70 [facility] Determination of erythrocyte mean corpuscular volume (MCV)Ordered By: Bert Greenwood on 01-05-2024 MCV (RBC) [Entitic vol] 83.2 fL 81-99 [facility] Erythrocyte distribution wid th ratioOrdered By: Bert Greenwood on 01-05-2024 Erythrocyte distribution width (RBC) [Ratio] 16.0 % 11.6-14.6 [facility] Erythrocyte distribution wid th standard deviationOrdered By: Bert Greenwood on 01-05-2024 Erythrocyte distribution width (RBC) [Entitic vol] 48.2 fL 35.1-43.9 [facility] Hematocrit Auto (Bld) [Volum e fraction]Ordered By: Bert Greenwood on 01-05-2024 Hematocrit (Bld) [Volume fraction] 42.2 % 37-47 [facility] Laboratory - Chemistry and C hemistry - challengeOrdered By: Bert Greenwood on 01-05-2024 CO2 [Moles/Vol] 26.0 mmol/L 21.0-32.0 [facility] Urea nitrogen/Creatinine [Mass ratio] 28.0 mg/mg 10-20 [facility] Laboratory - Hematology and Cell countsOrdered By: Bert Greenwood on 01-05-2024 MCH (RBC) [Entitic mass] 25.8 pg 27.0-32.0 [facility] MCHC (RBC) [Mass/Vol] 31.0 g/dL 32-36 [facility] Myelocytes/100 WBC (Bld) 1 % 0-0 [facility] Platelet mean volume (Bld) [Entitic vol] 10.1 fL 6.2-12.0 [facility] Platelets (Bld) [#/Vol] 498 10*3/uL 150-450 [facility] No Panel InformationOrdered By: Bert Greenwood on 01-05-2024 Estimated Creatinine Clearance Calc 60.35 ml/min [facility] Estimated GFR (MDRD) Amer 91 mL/min >60 [facility] Comment on above: GFR Calc Estimated GFR (MDRD) Non-Af Amer 75 mL/min >60 [facility] Comment on above: Non- GFR Calc RBC Auto (Bld) [#/Vol]Ordere d By: Bert Greenwood on 01-05-2024 RBC (Bld) [#/Vol] 5.07 10*6/uL 4.2-5.4 [facility] RBC morphologyOrdered By: Dorian Greenwood on 01-05-2024 RBC morphology finding Nom (Bld) NORM C+C NORMAL NORM C&C [facility] Review by pathologistOrdered By: Bert Greenwood on 01-05-2024 Pathologist review Geovany (Unsp spec) [Interp] January ana maría [facility] Pathologist review Geovany (Unsp spec) [Interp] Reviewed [facility] Comment on above: Previous reported re sult: Tiesha gotti Edited by: DESHAWN on 01/06/24:1540Neutrophilic leukocytosis with left shift.Thrombocytosis.Clinical correlation necessary.Javier Best M.D. 01/06/24 AMENDED REPORT 01/06/24 1540 PATH REV previously reported as: January ana maría Serum or plasma calcium esthela urement (mass/volume)Ordered By: Bert Greenwood on 01-05-2024 Calcium [Mass/Vol] 10.5 mg/dL 8.5-10.1 [facility] Serum or plasma creatinine m easurement (mass/volume)Ordered By: Bert Greenwood on 01-05-2024 Creatinine [Mass/Vol] 0.82 mg/dL 0.55-1.02 [facility] Comment on above: The validity of the calculated GFR & GFRAA in patients over 70 years has not been determined. Clinical correlation is essential. Serum or plasma urea nitroge n measurement (mass/volume)Ordered By: Bert Greenwood on 01-05-2024 Urea nitrogen [Mass/Vol] 23 mg/dL 7-18 [facility] Thin prep Papanicolaou smear with manual screeningOrdered By: Bert Greenwood on 01-05-2024 Thin prep Papanicolaou smear with manual screening 7 5-15 [facility] Total cell countOrdered By: Bert Greenwood on 01-05-2024 Cells counted Molgen (Bld/Tiss) [#] 100 MANUAL DIFF [facility] Bacteria identified Respirat ory culture Nom (Unsp spec)Ordered By: Carin Meraz on 01-04-2024 Respiratory Culture Presumptive C albicans [facility] Gram stain for investigation of transfusion reactionOrdered By: Carin Meraz on 01-04-2024 Microscopic observation Gram stain Nom (Unsp spec) [facility] Automated lymphocyte count a s percentage of total leukocytesOrdered By: Carin Meraz on 01-03-2024 Lymphocytes/100 WBC Auto (Unsp spec) 4.0 % 19-41 [facility] Basophil percentageOrdered B y: Carin Meraz on 01-03-2024 Basophils/100 WBC (Bld) 0.3 % 0-1 [facility] Bilirubin [Mass/Vol] 0.20 mg/dL 0.20-1.00 [facility] Comment on above: For patients on eltr ombopag therapy, use of Dimension [place] TBIL is not recommended. Chloride [Moles/Vol] 105 mmol/L 98-107 [facility] Eosinophils/100 WBC (Bld) 0.2 % 0-5 [facility] Glucose [Mass/Vol] 227 mg/dL 74-106 [facility] Comment on above: Glucose result great er than or equal to 200 mg/dLsuggests DIABETES MELLITUS per A.D.A. criteria. Monocytes/100 WBC (Bld) 2.5 % 0-10 [facility] Potassium [Moles/Vol] 4.3 mmol/L 3.5-5.1 [facility] Protein [Mass/Vol] 7.9 g/dL 6.4-8.2 [facility] Sodium [Moles/Vol] 135 mmol/L 136-145 [facility] Immature granulocytes/100 WB C Auto (Bld)Ordered By: Carin Meraz on 01-03-2024 Immature granulocytes/100 WBC (Bld) 1.700 % 0.0-0.9 [facility] Comment on above: IG% - Immature Granu locytes (promyelocytes, myelocytes and metamyelocytes) > 1% indicates that a LEFT SHIFT is Present. Laboratory - Chemistry and C hemistry - challengeOrdered By: Carin Meraz on 01-03-2024 Albumin/Globulin [Mass ratio] 0.6 {ratio} 0.9-2.4 [facility] ALP [Catalytic activity/Vol] 129 U/L 45-117 [facility] ALT [Catalytic activity/Vol] 12 U/L 13-56 [facility] CO2 [Moles/Vol] 23.0 mmol/L 21.0-32.0 [facility] Globulin (S) [Mass/Vol] 5.0 g/dL 2.2-4.2 [facility] Urea nitrogen/Creatinine [Mass ratio] 14.3 mg/mg 10-20 [facility] Laboratory - Hematology and Cell countsOrdered By: Carin Meraz on 01-03-2024 Nucleated RBC/100 WBC (Bld) [Ratio] 0 % 0-5 [facility] No Panel InformationOrdered By: Carin Meraz on 01-03-2024 Estimated Creatinine Clearance Calc 50.50 ml/min [facility] Estimated GFR (MDRD) Amer 74 mL/min >60 [facility] Comment on above: GFR Calc Estimated GFR (MDRD) Non-Af Amer 61 mL/min >60 [facility] Comment on above: Non- GFR Calc Serum or plasma calcium esthela urement (mass/volume)Ordered By: Carin Meraz on 01-03-2024 Calcium [Mass/Vol] 8.9 mg/dL 8.5-10.1 [facility] Serum or plasma creatinine m easurement (mass/volume)Ordered By: Carin Meraz on 01-03-2024 Creatinine [Mass/Vol] 0.98 mg/dL 0.55-1.02 [facility] Comment on above: The validity of the calculated GFR & GFRAA in patients over 70 years has not been determined. Clinical correlation is essential. Serum or plasma urea nitroge n measurement (mass/volume)Ordered By: Carin Meraz on 01-03-2024 Urea nitrogen [Mass/Vol] 14 mg/dL 7-18 [facility] Thin prep Papanicolaou smear with manual screeningOrdered By: Carin Meraz on 01-03-2024 Thin prep Papanicolaou smear with manual screening 2.9 g/dL 3.2-5.0 [facility] Thin prep Papanicolaou smear with manual screening 12 U/L 15-37 [facility] Thin prep Papanicolaou smear with manual screening 7 5-15 [facility] Absolute lymphocyte countOrd ered By: Víctor Huerta on 01-02-2024 Lymphocytes Auto (Unsp spec) [#/Vol] 2.46 10*3/uL 0.83-4.51 [facility] Activated partial thrombopla stin time (aPTT) in platelet poor plasma by coagulation aOrdered By: Víctor Huerta on 01-02-2024 aPTT Coag (PPP) [Time] 32.2 s 24.1-36.2 [facility] Assessment of wrist artery p atency prior to arterial punctureOrdered By: Víctor Huerta on 01-02-2024 Arterial patency Wrist artery --pre arterial puncture Positive [facility] Automated lymphocyte count a s percentage of total leukocytesOrdered By: Víctor Huerta on 01-02-2024 Lymphocytes/100 WBC Auto (Unsp spec) 9.6 % 19-41 [facility] Base excessOrdered By: Brandon Huerta on 01-02-2024 Base excess Calc (BldV) [Moles/Vol] -4 mmol/L -2-2 [facility] Basophil percentageOrdered B y: Víctor Huerta on 01-02-2024 Lactate [Moles/Vol] 1.2 mmol/L 0.4-2.0 [facility] Basophil percentage 22 mmol/L [facility] Basophils/100 WBC (Bld) 92 % 95-99 [facility] Bilirubin [Mass/Vol] 0.30 mg/dL 0.20-1.00 [facility] Comment on above: For patients on eltr ombopag therapy, use of Dimension [place] TBIL is not recommended. Protein [Mass/Vol] 8.3 g/dL 6.4-8.2 [facility] Basophils/100 WBC (Bld) 0.4 % 0-1 [facility] Chloride [Moles/Vol] 101 mmol/L 98-107 [facility] Eosinophils/100 WBC (Bld) 0.6 % 0-5 [facility] Glucose [Mass/Vol] 126 mg/dL 74-106 [facility] Comment on above: Fasting Glucose resu lt greater than or equal to 126 mg/dL suggests DIABETES MELLITUS per A.D.A. criteria. Hemoglobin (Bld) [Mass/Vol] 12.9 g/dL 12.0-15.0 [facility] Monocytes/100 WBC (Bld) 6.9 % 0-10 [facility] Neutrophils (Bld) [#/Vol] 21.0 10*3/uL 2.0-7.7 [facility] Neutrophils/100 WBC (Bld) 81.7 % 47-70 [facility] Potassium [Moles/Vol] 3.9 mmol/L 3.5-5.1 [facility] Sodium [Moles/Vol] 133 mmol/L 136-145 [facility] r WBC (Bld) [#/Vol] 25.7 10*3/uL 4.4-11.0 [facility] Blood manual differential co mment interpretation (narrative result)Ordered By: Víctor Huerta on 01-02-2024 Manual differential comment Geovany (Bld) [Interp] SCANNED [facility] Determination of erythrocyte mean corpuscular volume (MCV)Ordered By: Víctor Huerta on 01-02-2024 MCV (RBC) [Entitic vol] 83.2 fL 81-99 [facility] Direct bilirubinOrdered By: Víctor Huerta on 01-02-2024 Bilirubin.direct [Mass/Vol] 0.13 mg/dL 0.00-0.30 [facility] Erythrocyte distribution wid th ratioOrdered By: Víctor Huerta on 01-02-2024 Erythrocyte distribution width (RBC) [Ratio] 15.6 % 11.6-14.6 [facility] Erythrocyte distribution wid th standard deviationOrdered By: Víctor Huerta on 01-02-2024 Erythrocyte distribution width (RBC) [Entitic vol] 47.1 fL 35.1-43.9 [facility] Hematocrit Auto (Bld) [Volum e fraction]Ordered By: Víctor Huerta on 01-02-2024 Hematocrit (Bld) [Volume fraction] 41.5 % 37-47 [facility] Immature granulocytes/100 WB C Auto (Bld)Ordered By: Víctor Huerta on 01-02-2024 Immature granulocytes/100 WBC (Bld) 0.800 % 0.0-0.9 [facility] Comment on above: IG% - Immature Granu locytes (promyelocytes, myelocytes and metamyelocytes) > 1% indicates that a LEFT SHIFT is Present. Laboratory - Chemistry and C hemistry - challengeOrdered By: Víctor Huerta on 01-02-2024 ALP [Catalytic activity/Vol] 148 U/L 45-117 [facility] ALT [Catalytic activity/Vol] 13 U/L 13-56 [facility] Globulin (S) [Mass/Vol] 5.1 g/dL 2.2-4.2 [facility] Natriuretic peptide B (Bld) [Mass/Vol] 75.1 pg/mL 0-100 [facility] CO2 [Moles/Vol] 25.0 mmol/L 21.0-32.0 [facility] Urea nitrogen/Creatinine [Mass ratio] 14.7 mg/mg 10-20 [facility] Laboratory - CoagulationOrde red By: Víctor Huerta on 01-02-2024 INR Coag (Bld) [Relative time] 1.1 {INR} [facility] PT Coag (PPP) [Time] 14.5 s 11.7-14.9 [facility] Laboratory - Hematology and Cell countsOrdered By: Víctor Huerta on 01-02-2024 MCH (RBC) [Entitic mass] 25.9 pg 27.0-32.0 [facility] MCHC (RBC) [Mass/Vol] 31.1 g/dL 32-36 [facility] Nucleated RBC/100 WBC (Bld) [Ratio] 0 % 0-5 [facility] Platelet mean volume (Bld) [Entitic vol] 9.8 fL 6.2-12.0 [facility] Platelets (Bld) [#/Vol] 311 10*3/uL 150-450 [facility] Laboratory - Microbiology an d Antimicrobial susceptibilityOrdered By: Víctor Huerta on 01-02-2024 Bacteria identified Cx Nom (Bld) No growth in 5 days. [facility] SARS-CoV-2 (COVID-19) RNA KANDY+probe Ql (Unsp spec) [facility] Measurement, pHOrdered By: Tiffani Huerta on 01-02-2024 pH (Unsp spec) 7.42 [pH] 7.35-7.45 [facility] No Panel InformationOrdered By: Víctor Huerta on 01-02-2024 Arterial Blood Partial Pressure CO2 32.2 mmHg 35-45 [facility] Arterial Blood Partial Pressure O2 62 mmHG 75-100 [facility] Blood Gas Bicarbonate Actual 20.7 mmol/L 22-26 [facility] Blood Gas Oxygen Percent 21.0 [facility] Blood Gas Sample Site R Radial [facility] Blood Gas Specimen Type ART [facility] Blood Gas Vent Mode Not entered [facility] Oxygen Delivery Device Room Air [facility] Estimated Creatinine Clearance Calc 51.55 ml/min [facility] Estimated GFR (MDRD) Amer 77 mL/min >60 [facility] Comment on above: GFR Calc Estimated GFR (MDRD) Non-Af Amer 63 mL/min >60 [facility] Comment on above: Non- GFR Calc Troponin I High Sensitivity 13 pg/mL 3.0-54.0 [facility] Comment on above: Please Note: [place] t Units and Gender Specific Reference Ranges. For more information see Policy Stat Procedure [place] High Sensitivity Troponin (TNIH) and attachments. RBC Auto (Bld) [#/Vol]Ordere d By: Víctor Huerta on 01-02-2024 RBC (Bld) [#/Vol] 4.99 10*6/uL 4.2-5.4 [facility] Review by pathologistOrdered By: Víctor Huerta on 01-02-2024 Pathologist review Geovany (Unsp spec) [Interp] January [facility] Serum or plasma calcium esthela urement (mass/volume)Ordered By: Víctor Huerta on 01-02-2024 Calcium [Mass/Vol] 8.9 mg/dL 8.5-10.1 [facility] Serum or plasma creatinine m easurement (mass/volume)Ordered By: Víctor Huerta on 01-02-2024 Creatinine [Mass/Vol] 0.96 mg/dL 0.55-1.02 [facility] Comment on above: The validity of the calculated GFR & GFRAA in patients over 70 years has not been determined. Clinical correlation is essential. Serum or plasma urea nitroge n measurement (mass/volume)Ordered By: Víctor Huerta on 01-02-2024 Urea nitrogen [Mass/Vol] 14 mg/dL 7-18 [facility] Serum procalcitonin measurem entOrdered By: Carin Meraz on 01-02-2024 Procalcitonin [Mass/Vol] 0.11 ng/mL 0.00-0.09 [facility] Comment on above: A procalcitonin (PCT ) [...] smear with manual screening 3.2 g/dL 3.2-5.0 [facility] Thin prep Papanicolaou smear with manual screening 14 U/L 15-37 [facility] Thin prep Papanicolaou smear with manual screening 7 5-15 [facility] Influenza virus A and B and SARS-CoV-2 (COVID-19) Ag panel - Upper respiratory specimOrdered By: Tasneem Dykes on 07-08-2023 SARS-CoV-2 (COVID-19) RNA KANDY+probe Ql (Resp) [facility] Absolute lymphocyte countOrd ered By: ED PROVIDER on 06-02-2023 Lymphocytes Auto (Unsp spec) [#/Vol] 2.95 10*3/uL 0.83-4.51 [facility] Basophil percentageOrdered B y: ED PROVIDER on 06-02-2023 Basophils/100 WBC (Bld) 1.0 % 0-1 [facility] Chloride [Moles/Vol] 105 mmol/L 98-107 [facility] Eosinophils/100 WBC (Bld) 3.6 % 0-5 [facility] Glucose [Mass/Vol] 117 mg/dL 74-106 [facility] Comment on above: Fasting Glucose resu lt from 100 to 125 mg/dL suggests IMPAIRED HOMEOSTASIS per A.D.A. criteria. Neutrophils (Bld) [#/Vol] 7.4 10*3/uL 2.0-7.7 [facility] Neutrophils/100 WBC (Bld) 63.1 % 47-70 [facility] Potassium [Moles/Vol] 4.2 mmol/L 3.5-5.1 [facility] Sodium [Moles/Vol] 141 mmol/L 136-145 [facility] WBC (Bld) [#/Vol] 11.7 10*3/uL 4.4-11.0 [facility] Blood erythrocytes count (nu mber/volume)Ordered By: ED PROVIDER on 06-02-2023 RBC (Bld) [#/Vol] 4.88 10*6/uL 4.2-5.4 [facility] Blood hemoglobin measurement (mass/volume)Ordered By: ED PROVIDER on 06-02-2023 Hemoglobin (Bld) [Mass/Vol] 13.3 g/dL 12.0-15.0 [facility] Blood lymphocytes/100 leukoc ytesOrdered By: ED PROVIDER on 06-02-2023 Lymphocytes/100 WBC (Bld) 25.1 % 19-41 [facility] Blood monocytes/100 leukocyt esOrdered By: ED PROVIDER on 06-02-2023 Monocytes/100 WBC (Bld) 6.4 % 0-10 [facility] Blood platelet mean volumeOr dered By: ED PROVIDER on 06-02-2023 Platelet mean volume (Bld) [Entitic vol] 10.1 fL 6.2-12.0 [facility] Determination of erythrocyte mean corpuscular volume (MCV)Ordered By: ED PROVIDER on 06-02-2023 MCV (RBC) [Entitic vol] 83.2 fL 81-99 [facility] Hematocrit Auto (Bld) [Volum e fraction]Ordered By: ED PROVIDER on 06-02-2023 Hematocrit (Bld) [Volume fraction] 40.6 % 37-47 [facility] Influenza virus A and B and SARS-CoV-2 (COVID-19) Ag panel - Upper respiratory specimOrdered By: Levar Hadny on 06-02-2023 SARS-CoV-2 (COVID-19) RNA KANDY+probe Ql (Resp) [facility] Laboratory - Chemistry and C hemistry - challengeOrdered By: ED PROVIDER on 06-02-2023 CO2 [Moles/Vol] 27.0 mmol/L 21.0-32.0 [facility] Urea nitrogen/Creatinine [Mass ratio] 6.9 mg/mg 10-20 [facility] Laboratory - Hematology and Cell countsOrdered By: ED PROVIDER on 06-02-2023 Erythrocyte distribution width (RBC) [Entitic vol] 46.1 fL 35.1-43.9 [facility] Erythrocyte distribution width (RBC) [Ratio] 15.3 % 11.6-14.6 [facility] Immature granulocytes/100 WBC (Bld) 0.800 % 0.0-0.9 [facility] Comment on above: IG% - Immature Granu locytes (promyelocytes, myelocytes and metamyelocytes) > 1% indicates that a LEFT SHIFT is Present. MCH (RBC) [Entitic mass] 27.3 pg 27.0-32.0 [facility] Nucleated RBC/100 WBC (Bld) [Ratio] 0 % 0-5 [facility] MCHC Auto (RBC) [Mass/Vol]Or dered By: ED PROVIDER on 06-02-2023 MCHC (RBC) [Mass/Vol] 32.8 g/dL 32-36 [facility] No Panel InformationOrdered By: ED PROVIDER on 06-02-2023 Estimated Creatinine Clearance Calc 56.88 ml/min [facility] Estimated GFR (MDRD) Amer 86 mL/min >60 [facility] Comment on above: GFR Calc Estimated GFR (MDRD) Non-Af Amer 71 mL/min >60 [facility] Comment on above: Non- GFR Calc Platelets bldOrdered By: ED PROVIDER on 06-02-2023 Platelets (Bld) [#/Vol] 361 10*3/uL 150-450 [facility] Serum or plasma calcium esthela urement (mass/volume)Ordered By: ED PROVIDER on 06-02-2023 Calcium [Mass/Vol] 9.3 mg/dL 8.5-10.1 [facility] Serum or plasma creatinine m easurement (mass/volume)Ordered By: ED PROVIDER on 06-02-2023 Creatinine [Mass/Vol] 0.87 mg/dL 0.55-1.02 [facility] Comment on above: The validity of the calculated GFR & GFRAA in patients over 70 years has not been determined. Clinical correlation is essential. Serum or plasma urea nitroge n measurement (mass/volume)Ordered By: ED PROVIDER on 06-02-2023 Urea nitrogen [Mass/Vol] 6 mg/dL 7-18 [facility] Thin prep Papanicolaou smear with manual screeningOrdered By: ED PROVIDER on 06-02-2023 Thin prep Papanicolaou smear with manual screening 9 5-15 [facility] Ophthalmic Eye [place] 2022 Ophthalmic Eye Exam DOCUMENT REVIEWED BY : Yrn Ortega DOCUMENT SIGNED ELECTRONICALLY BY Yrn Ortega ON 12/23/2022 09:55:17 PM [id number] [place], [address] THIS DOCUMENT WAS CREATED ON: 12/22/2022 02:52:23 PM BY: MARCELLA Hutchinson [id number] Exam Date: Thursday, December 22, 2022 PATIENT [...] to be resolving - Dr Jurado in [facility], No Mri done recently Context/Onset-several weeks ago, Location-right eye, HISTORY OF PRESENT ILLNESS: PROBLEM: Pt sts orbital swelling seen in ED and admission and resolved with antibiotics PT sts has reoccurrance about 3 weeks ago with swelling above right eye and currently on oral prednisone 20mg and was on oral antibiotics and seems to be resolving - Dr Jurado in [facility] CONTEXT/ONSET: several weeks ago LOCATION: right [...] [Reported] ARIPiprazole TABS - Tablet, [Reported] Creon [id number] UNIT Oral Capsule Delayed Release Particles - [...] CUP TO DISC: 0.4 0.4 OPTIC DISC: [place] and sharp [place] and sharp VITREOUS: Clear Clear Impression 1 [...] without biopsy. - will inform Dr. Jurado ([facility]) [address] [place] [id number], phone [phone] fax [phone] - consider further imaging if there is another recurrence of swelling f/u 10 weeks Yrn Ortega DOCUMENT CREATE DATE: 12/22/2022 02:52:23 PM Received for:Yrn Ortega MD Dec 23 2022 9:55PM Eastern Standard Time Normal [facility] XR Lumbar spine 3 Viewson IMPRESSION: Lumbar s pine degenerative changes as described above. Simulation Educator: BABATUNDE Transcribe Date/Time: Nov 26 2022 2:44P Dictated by : CHELA GAMING MD This examination was interpreted and the report reviewed and electronically signed by: CHELA GAMING MD on Nov 26 2022 2:59PM [facility] DIVISION OF RADIOLOGY * * *Final Report* [...] spine are presented. FINDINGS: There are five [id number]-wuf-[id number] lumbar vertebrae. No acute fracture or subluxations [...] spine are presented. FINDINGS: There are five [id number]-[id number] lumbar vertebrae. No acute fracture or subluxations are noted. The disc spaces are well preserved. There is minimal osteophyte formation. Kissing spine seen on lateral view. Others: There are vascular calcifications. IMPRESSION IMPRESSION: Lumbar spine degenerative changes as described above. Simulation Educator: [facility] Transcribe Date/Time: Nov 26 2022 2:44P Dictated by : CHELA GAMING MD This examination was interpreted and the report reviewed and electronically signed by: CHELA GAMING MD on Nov 26 2022 2:59PM EST [facility] XR Lumbar spine 3 ViewsOrder ed By: Ccf Provider on 11-26-2022 [facility] XR Lumbar spine 3 Viewson Radiology Study observation (narrative) [facility] XR CHEST 2V FRONTAL/LATon [facility] XR Chest PA and Lateralon IMPRESSION: No acute radiographic abnormality. Simulation Educator: BABATUNDE Transcribe Date/Time: Nov 11 2022 10:22P Dictated by : NANETTE OGDEN MD This examination was interpreted and the report reviewed and electronically signed by: NANETTE OGDEN MD on Nov 11 2022 10:23PM [facility] DIVISION OF RADIOLOGY * * *Final Report* [...] tissues: Unremarkable. DIVISION OF RADIOLOGY Provider, Jacques zamorano Shelby - 11/11/2022 * * *Final Report* * [...] Unremarkable. IMPRESSION IMPRESSION: No acute radiographic abnormality. Simulation Educator: [facility] Transcribe Date/Time: Nov 11 2022 10:22P Dictated by : NANETTE OGDEN MD This examination was interpreted and the report reviewed and electronically signed by: NANETTE OGDEN MD on Nov 11 2022 10:23PM EST [facility] Radiology Study observation (narrative) [facility] XR Chest PA and LateralOrder ed By: Ccf Provider on 11-11-2022 [facility] Absolute lymphocyte countOrd ered By: Dr. Bonilla on 11-07-2022 Lymphocytes Auto (Unsp spec) [#/Vol] 2.70 10*3/uL 0.83-4.51 [facility] Basophil percentageOrdered B y: Dr. Bonilla on 11-07-2022 Basophils/100 WBC (Bld) 0.4 % 0-1 [facility] Chloride [Moles/Vol] 99 mmol/L 98-[address] [facility] [address] Eosinophils/100 WBC (Bld) 4.1 % 0-5 [facility] Glucose [Mass/Vol] 90 mg/dL 74-106 [facility] Neutrophils (Bld) [#/Vol] 8.0 10*3/uL 2.0-7.7 [facility] Neutrophils/100 WBC (Bld) 59.2 % 47-70 [facility] Potassium [Moles/Vol] 3.0 mmol/L 3.5-5.1 [facility] Sodium [Moles/Vol] 141 mmol/L 136-145 [facility] WBC (Bld) [#/Vol] 13.6 10*3/uL 4.4-11.0 [facility] Blood erythrocytes count (nu mber/volume)Ordered By: Dr. Bonilla on 11-07-2022 RBC (Bld) [#/Vol] 3.28 10*6/uL 4.2-5.4 [facility] Blood hemoglobin measurement (mass/volume)Ordered By: Dr. Bonilla on 11-07-2022 Hemoglobin (Bld) [Mass/Vol] 8.8 g/dL 12.0-15.0 [facility] Blood lymphocytes/100 leukoc ytesOrdered By: Dr. Bonilla on 11-07-2022 Lymphocytes/100 WBC (Bld) 19.9 % 19-41 [facility] Blood manual differential co mment interpretation (narrative result)Ordered By: Dr. Bonilla on 11-07-2022 Manual differential comment Geovany (Bld) [Interp] SCANNED [facility] Blood monocytes/100 leukocyt esOrdered By: Dr. Bonilla on 11-07-2022 Monocytes/100 WBC (Bld) 13.8 % 0-10 [facility] Blood platelet mean volumeOr dered By: Dr. Bonilla on 11-07-2022 Platelet mean volume (Bld) [Entitic vol] 9.9 fL 6.2-12.0 [facility] Determination of erythrocyte mean corpuscular volume (MCV)Ordered By: Dr. Bonilla on 11-07-2022 MCV (RBC) [Entitic vol] 83.5 fL 81-99 [facility] Hematocrit Auto (Bld) [Volum e fraction]Ordered By: Dr. Bonilla on 11-07-2022 Hematocrit (Bld) [Volume fraction] 27.4 % 37-47 [facility] Laboratory - Chemistry and C hemistry - challengeOrdered By: Dr. Bonilla on 11-07-2022 CO2 [Moles/Vol] 36.0 mmol/L 21.0-32.0 [facility] Urea nitrogen/Creatinine [Mass ratio] 15.6 mg/mg 10-20 [facility] Laboratory - Hematology and Cell countsOrdered By: Dr. Bonilla on 11-07-2022 Erythrocyte distribution width (RBC) [Entitic vol] 45.4 fL 35.1-43.9 [facility] Erythrocyte distribution width (RBC) [Ratio] 14.8 % 11.6-14.6 [facility] Immature granulocytes/100 WBC (Bld) 2.600 % 0.0-0.9 [facility] Comment on above: IG% - Immature Granu locytes (promyelocytes, myelocytes and metamyelocytes) > 1% indicates that a LEFT SHIFT is Present. MCH (RBC) [Entitic mass] 26.8 pg 27.0-32.0 [facility] Nucleated RBC/100 WBC (Bld) [Ratio] 0 % 0-5 [facility] MCHC Auto (RBC) [Mass/Vol]Or dered By: Dr. Bonilla on 11-07-2022 MCHC (RBC) [Mass/Vol] 32.1 g/dL 32-36 [facility] No Panel InformationOrdered By: Dr. Bonilla on 11-07-2022 Estimated Creatinine Clearance Calc 52.20 ml/min [facility] Estimated GFR (MDRD) Amer 76 mL/min >60 [facility] Comment on above: GFR Calc Estimated GFR (MDRD) Non-Af Amer 63 mL/min >60 [facility] Comment on above: Non- GFR Calc Platelets bldOrdered By: Dr. Bonilla on 11-07-2022 Platelets (Bld) [#/Vol] 395 10*3/uL 150-450 [facility] Review by pathologistOrdered By: Dr. Bonilla on 11-07-2022 Pathologist review Geovany (Unsp spec) [Interp] Reviewed [facility] Comment on above: Previous reported re sult: Tiesha gotti Edited by: RGOOD on 11/07/22:1323Leukocytosis with Neutrophilic left shift. Normocytic anemia.Clinical correlation necessary.Javier Best M.D. 11/07/22 AMENDED REPORT 11/07/22 1323 PATH REV previously reported as: Tiesha gotti Serum or plasma calcium esthela urement (mass/volume)Ordered By: Dr. Bonilla on 11-07-2022 Calcium [Mass/Vol] 8.4 mg/dL 8.5-10.1 [facility] Serum or plasma creatinine m easurement (mass/volume)Ordered By: Dr. Bonilla on 11-07-2022 Creatinine [Mass/Vol] 0.96 mg/dL 0.55-1.02 [facility] Comment on above: The validity of the calculated GFR & GFRAA in patients over 70 years has not been determined. Clinical correlation is essential. Serum or plasma urea nitroge n measurement (mass/volume)Ordered By: Dr. Bonilla on 11-07-2022 Urea nitrogen [Mass/Vol] 15 mg/dL 7-18 [facility] Thin prep Papanicolaou smear with manual screeningOrdered By: Dr. Bonilla on 11-07-2022 Thin prep Papanicolaou smear with manual screening 6 5-15 [facility] Laboratory - Hematology and Cell countsOrdered By: Dr. Bonilla on 11-06-2022 Anisocytosis Ql (Bld) 1+ [facility] Assessment of wrist artery p atency prior to arterial punctureOrdered By: Dr. Bonilla on 11-05-2022 Arterial patency Wrist artery --pre arterial puncture N/A [facility] Base excessOrdered By: Dr. Melchor camargo on 11-05-2022 Base excess Calc (BldV) [Moles/Vol] -10 mmol/L -2-2 [facility] Basophil percentageOrdered B y: Dr. Bonilla on 11-05-2022 Basophil percentage 17.6 mmol/L 22-26 [facility] Basophils/100 WBC (Bld) 97 % 95-99 [facility] CO2 (BldA) [Partial pressure ]Ordered By: Dr. Bonilla on 11-05-2022 CO2 (Bld) [Partial pressure] 44.1 mm[Hg] 35-45 [facility] Laboratory - Chemistry and C hemistry - challengeOrdered By: Dr. Sebastian on 11-05-2022 Lipase [Catalytic activity/Vol] 112 U/L 73-393 [facility] Laboratory - CoagulationOrde red By: Dr. Bonilla on 11-05-2022 aPTT Coag (Bld) [Time] 68.4 s 24.1-36.2 [facility] No Panel InformationOrdered By: Dr. Bonilla on 11-05-2022 Bld Gas Crit Called To/Read Back By Yes [facility] Blood Gas Liter Flow 3.0 /min [facility] Blood Gas Notified Whom Dr Sebastian [facility] Blood Gas Sample Site L Radial [facility] Blood Gas Specimen Type ART [facility] Blood Gas Total CO2 19 mmol/L [facility] Oxygen Delivery Device Cannula [facility] Oxygen (BldA) [Partial press ure]Ordered By: Dr. Bonilla on 11-05-2022 Oxygen (Bld) [Partial pressure] 107 mmHG 75-100 [facility] Serum or plasma vancomycin m easurement (mass/volume)Ordered By: Dr. Bonilla on 11-05-2022 Vancomycin [Mass/Vol] 18.2 ug/mL 0.0-15.0 [facility] Comment on above: VANCOMYCIN STANDARD DRUG THERAPY: CRITICAL VALUE IS > 15.0 mg/L VANCOMYCIN HIGH INTENSITY THERAPY: CRITICAL VALUE IS > 20.0 mg/L PLEASE CONTACT PHARMACY SERVICES (#7231) FOR INTERPRETATIONOF RESULTS. THIS RESULT DOES NOT REPRESENT A PEAK OR TROUGHLEVEL FOR THIS DRUG. pH measurementOrdered By: Dr Max Bonilla on 11-05-2022 pH (Unsp spec) 7.21 [pH] 7.35-7.45 [facility] Basophil percentageOrdered B y: Dr. Iverson on 11-04-2022 Basophil percentage 0-5 SEEN /hpf 0-5 [facility] Basophil percentageOrdered B y: Dr. Bonilla on 11-04-2022 Lactate [Moles/Vol] 1.4 mmol/L 0.4-2.0 [facility] Bilirubin Test strip Ql (U)O rdered By: Dr. Iverson on 11-04-2022 Bilirubin Ql (U) Negative Negative [facility] INR in Blood by Coagulation assayOrdered By: Dr. Bonilla on 11-04-2022 INR Coag (Bld) [Relative time] 1.2 {INR} [facility] Ketones Test strip Ql (U)Ord ered By: Dr. Iverson on 11-04-2022 Ketones Ql (U) Negative Negative [facility] Laboratory - CoagulationOrde red By: Dr. Bonilla on 11-04-2022 PT Coag (PPP) [Time] 14.6 s 11.7-14.9 [facility] Mucus LM Ql (Urine sed)Order ed By: Dr. Iverson on 11-04-2022 Mucus Ql (Urine sed) 0 SEEN /hpf [facility] Nitrite Test strip Ql (U)Ord ered By: Dr. Iverson on 11-04-2022 Nitrite Ql (U) Negative Negative [facility] No Panel InformationOrdered By: Dr. Bonilla on 11-04-2022 Blood Gas Oxygen Percent 30 [facility] Blood Gas Respiration Rate 12 [facility] Urine Urea Nitrogen 302 mg/dL NO RANGE EST. [facility] Protein Test strip Ql (U)Ord ered By: Dr. Iverson on 11-04-2022 Protein Ql (U) 30 mg/dl Negative [facility] Squamous epithelial cells de tection in urine sediment by light microscopyOrdered By: Dr. Iverson on 11-04-2022 Epithelial cells.squamous LM Ql (Urine sed) 0 SEEN /hpf 5-10 [facility] Urine blood detectionOrdered By: Dr. Iverson on 11-04-2022 RBC Ql (U) 150 /ul Negative [facility] RBC Ql (U) 10-25 SEEN /hpf 0-5 [facility] Urine clarityOrdered By: Dr. Iverson on 11-04-2022 Clarity (U) Clear Clear [facility] Urine color determinationOrd ered By: Dr. Iverson on 11-04-2022 Color (U) Yellow Yellow [facility] Urine creatinine measurement (mass/volume)Ordered By: Dr. Bonilla on 11-04-2022 Creatinine (U) [Mass/Vol] 33.40 mg/dL NO RANGE EST. [facility] Urine glucose detectionOrder ed By: Dr. Iverson on 11-04-2022 Glucose Ql (U) 50 mg/dl Normal [facility] Urine leukocyte esterase det ection by dipstickOrdered By: Dr. Iverson on 11-04-2022 Leukocyte esterase Test strip Ql (U) Negative Negative [facility] Urine pHOrdered By: Dr. Feng sanders on 11-04-2022 pH (U) 6.0 [pH] 5.0 - 8.0 [facility] Urine sediment bacteria coun t by microscopy (number/high power field)Ordered By: Dr. Iverson on 11-04-2022 Bacteria LM.HPF (Urine sed) [#/Area] RARE /hpf None Seen [facility] Urine specific gravity measu rementOrdered By: Dr. Iverson on 11-04-2022 Specific gravity (U) [Rel density] 1.015 1.002-1.030 [facility] Urobilinogen Auto test strip Ql (U)Ordered By: Dr. Iverson on 11-04-2022 Urobilinogen Ql (U) Normal mg/dl Normal [facility] Basophil percentageOrdered B y: Dr. Ross on 11-03-2022 Bilirubin [Mass/Vol] 0.20 mg/dL 0.20-1.00 [facility] Comment on above: For patients on eltr ombopag therapy, use of Dimension [place] TBIL is not recommended. Protein [Mass/Vol] 5.7 g/dL 6.4-8.2 [facility] Laboratory - Chemistry and C hemistry - challengeOrdered By: Dr. Ross on 11-03-2022 ALP [Catalytic activity/Vol] 97 U/L 45-117 [facility] ALT [Catalytic activity/Vol] 31 U/L 13-56 [facility] Globulin (S) [Mass/Vol] 3.5 g/dL 2.2-4.2 [facility] Laboratory - Microbiology an d Antimicrobial susceptibilityOrdered By: Dr. Ross on 11-03-2022 Respiratory pathogens DNA and RNA 12b panel KANDY+probe (Unsp spec) [facility] Serum or plasma albumin esthela urement (mass/volume)Ordered By: Dr. Ross on 11-03-2022 Albumin [Mass/Vol] 2.2 g/dL 3.2-5.0 [facility] Serum or plasma albumin/glob ulin mass ratioOrdered By: Dr. Ross on 11-03-2022 Albumin/Globulin [Mass ratio] 0.6 {ratio} 0.9-2.4 [facility] Thin prep Papanicolaou smear with manual screeningOrdered By: Dr. Ross on 11-03-2022 Thin prep Papanicolaou smear with manual screening 36 U/L 15-37 [facility] No Panel InformationOrdered By: Dr. Ochoa on 11-02-2022 Bedside Blood Gas PEEP 8 [facility] Stool Calprotectin 118 ug/g 0-120 [facility] Comment on above: Concentration Interp retation Follow-Up<16 - 50 ug/g Normal None>50 -120 ug/g Borderline Re-evaluate in 4-6 weeks >120 ug/g Abnormal Repeat as clinically indicated No Panel InformationOrdered By: Dr. Fatima on 11-02-2022 Troponin I High Sensitivity 92 pg/mL 3.0-54.0 [facility] Comment on above: Please Note: [place] t Units and Gender Specific Reference Ranges. For more information see Policy Stat Procedure [place] High Sensitivity Troponin (TNIH) and attachments. Stool pHOrdered By: Dr. Pj smallwood on 11-02-2022 pH (Stl) 6.0 7.0-7.5 [facility] Comment on above: Performed at: [address] [id number] Director: Marvin Quintanilla MD, Phone: [phone] at: [facility] [address] [id number] Director: Tj Mendoza PhD, Phone: [phone] Chart Updateon 11-01-2022 Chart Update Chart Update Received page to [facility] pager that Pt is calling for internal medicine. Reviewed chart and noted pt was not a [facility] patient but had recently been D/C from [facility]. Attempted to call phone answering service but was unable to connect with the web art director who processed the call for more information. Called pt and informed her that I was a resident with the [facility] and her message was likely sent to me in error, she was concerned that she had not been urinating much recently despite drinking a significant amount of water (estimated 12 12 oz bottles since last night). She further stated she had called her PCP office today regarding this issue and reached an on-call SERVICE COUNTER CASHIER who recommended she present to the ED [...] Nov 01 2022 11:56AM EST (Author) Normal [employer] Telephone Encounteron 2022 [employer] Authentication Interface Message Text Situation: Patient states she was prescribed medication by and medication making her mouth dry (Patient not established with PCP at this time) Background: see above Assessment: Advised patient to reached out to prescribing provider- Recommendation: Verbalized understanding-Provided number to Normal [facility] ANCA-ASSOCIATED VASCULITIS P ROFILE [ANCA,MPO,PR3]on 10-30-2022 ANCA IFA PATTERN Not detected Normal None Detected [facility] Comment on above: Result Comment: INTE RPRETIVE INFORMATION: ANCA IFA Pattern Neutrophil Cytoplasmic Antibodies (C-ANCA = granular cytoplasmic staining, P-ANCA = perinuclear staining) are found in the serum of over 90 percent of patients with certain necrotizing systemic vasculitides, and usually in less than 5 percent of patients with collagen vascular disease or arthritis. Performed By: [facility] [address] [place] [address] Chestnut Tanner: Kyle Hyatt MD, PhD Performed By: #### A [facility] #### [facility] [address] [place] [id number] ANCA IFA TITER <1:20 Normal <1:20 [facility] Comment on above: Performed By: #### A NC #### [facility] [address] [place] [address] MYELOPEROXIDASE AB 0 AU/mL Normal 0-19 [facility] [place] Comment on above: Result Comment: INTE RPRETIVE INFORMATION: Myeloperoxidase Abs, IgG 19 AU/mL or Less ......... Negative 20-25 AU/mL .............. Equivocal 26 AU/mL or Greater ...... Positive Approximately 90% of patients with a P-ANCA pattern by IFA have antibodies specific for MPO. Performed By: #### A NCMP #### [facility] [address] [place] [address] PROTEINASE-3 0 AU/mL Normal 0-19 [facility] Comment on above: Result Comment: INTE RPRETIVE INFORMATION: Serine Proteinase 3, IgG 19 AU/mL or Less ........ Negative 20-25 AU/mL ............. Equivocal 26 AU/mL or Greater ..... Positive Approximately 85% of patients with a C-ANCA pattern by IFA have antibodies specific for PR3. Performed By: #### A NCMP #### [facility] [address] [place] [address] Clinical Event Note-Ophthalm ology follow upon 10-29-2022 [...] Updated: 30-Oct-2022 12:22 by Yrn Ortega) Normal [facility] LYSOZYMEon 10-29-2022 LYSOZYME 9.0 ug/mL Normal 2.5-12.9 [facility] Comment on above: Result Comment: [...] 9.5 Performed By: #### C MP #### [facility] [address] [place] [address] RENAL FUNCTION PANELon 10-29 Albumin [Mass/Vol] 3.8 g/dL Normal 3.4 - 5.0 [facility] [place] Comment on above: Performed By: #### R ENAL #### [facility] [address] [place] [address] Anion gap [Moles/Vol] 15 mmol/L Normal 10 - 20 [facility] Comment on above: Performed By: #### R ENAL #### [facility] [address] [place] [address] Calcium [Mass/Vol] 9.5 mg/dL Normal 8.6 - 10.6 [facility] [place] Comment on above: Performed By: #### R ENAL #### [facility] [address] [place] [address] Chloride [Moles/Vol] 100 mmol/L Normal 98 - 107 [facility] Comment on above: Performed By: #### R ENAL #### [facility] [address] [place] [address] Creatinine [Mass/Vol] 1.40 mg/dL High 0.50 - 1.05 [facility] Comment on above: Performed By: #### R ENAL #### [facility] [address] [place] [address] GFR/1.73 sq M.predicted among non-blacks MDRD (S/P/Bld) [Vol rate/Area] 43 mL/min/{1.73_m2} Abnormal >90 [facility] Comment on above: Result Comment: CALC ULATIONS OF ESTIMATED GFR ARE PERFORMED USING THE 2020 CKD-EPI STUDY REFIT EQUATION WITHOUT THE RACE VARIABLE FOR THE IDMS-TRACEABLE CREATININE METHODS. https://jasn.asnjournals.org/content//ASN18926 66091 Performed By: #### R ENAL #### [facility] [address] [place] [address] Glucose [Mass/Vol] 109 mg/dL High 74 - 99 [facility] [place] Comment on above: Performed By: #### R ENAL #### [facility] [address] [place] [address] HCO3 (Bld) [Moles/Vol] 23 mmol/L Normal 21 - 32 [facility] Comment on above: Performed By: #### R ENAL #### [facility] [address] [place] [address] Phosphate [Mass/Vol] 4.4 mg/dL Normal 2.5 - 4.9 [facility] Comment on above: Result Comment: The performance characteristics of phosphorus testing in heparinized plasma have been validated by the individual laboratory site where testing is performed. Testing on heparinized plasma is not approved by the FDA; however, such approval is not necessary. Performed By: #### R ENAL #### [facility] [address] [place] [address] Potassium [Moles/Vol] 3.4 mmol/L Low 3.5 - 5.3 [facility] Comment on above: Performed By: #### R ENAL #### [facility] [address] [place] [address] Sodium [Moles/Vol] 135 mmol/L Low 136 - 145 [facility] [place] Comment on above: Performed By: #### R ENAL #### [facility] [address] [place] [address] Urea nitrogen [Mass/Vol] 11 mg/dL Normal 6 - 23 [facility] Comment on above: Performed By: #### R ENAL #### [facility] [address] [place] [address] Renal Function Panelon 10-29 Albumin BCP dye [Mass/Vol] 3.8 g/dL 3.4 - 5.0 [facility] Work Phone: Anion gap [Moles/Vol] 15 mmol/L 10 - 20 [facility] Work Phone: [phone] Calcium [Mass/Vol] 9.5 mg/dL 8.6 - 10.6 [facility] Work Phone: [phone] Chloride [Moles/Vol] 100 mmol/L 98 - 107 [facility] Work Phone: [phone] CO2 [Moles/Vol] 23 mmol/L 21 - 32 [facility] Work Phone: [phone] Creatinine [Mass/Vol] 1.40 mg/dL above high threshold See Below -[facility] Work Phone: [phone] Comment on above: Reference Range: 0.5 0 - 1.05 Glucose [Mass/Vol] 109 mg/dL above high threshold 74 - 99 [facility] Work Phone: [phone] Phosphate [Mass/Vol] 4.4 mg/dL 2.5 - 4.9 [facility] Work Phone: [phone] Comment on above: The performance bruce acteristics of phosphorus testing in heparinized plasma have been validated by the individual laboratory site where testing is performed. Testing on heparinized plasma is not approved by the FDA; however, such approval is not necessary. Potassium [Moles/Vol] 3.4 mmol/L below low threshold 3.5 - 5.3 [facility] Work Phone: [phone] Sodium [Moles/Vol] 135 mmol/L below low threshold 136 - 145 [facility] Work Phone: [phone] Urea nitrogen [Mass/Vol] 11 mg/dL 6 - 23 [facility] Work Phone: [phone] Renal Function Panel 43 {mL/min/1.73m2} Abnormal >90 [facility] Work Phone: [phone] Comment on above: CALCULATIONS OF PAVAN MATED GFR ARE PERFORMED USING THE 2020 CKD-EPI STUDY REFIT EQUATION WITHOUT THE RACE VARIABLE FOR THE IDMS-TRACEABLE CREATININE METHODS.https://jasn.asnjournals.org/content/early//A SN.3335492218 BLOOD CULTURE, BACTERIALon 0 10-28-2022 BLOOD CULTURE, BACTERIAL PATIENT: GRACIE BANUELOS LOCATION: L020 L20 BILL#: [id number] : 61 AGE: SEX: F ORDERED BY: JUSTYN RICHTER SOURCE: Blood COLLECTED: 10/28/22 12:04 ANTIBIOTICS AT DEB.: RECEIVED : 10/28/22 16:14 SITE: PERIPHERAL R E S U L T S BLOOD CULTURE, BACTERIAL FINAL 11/01/22 17:42 No Growth at 1 days No Growth at 2 days No Growth at 3 days NO GROWTH at 4 days - FINAL REPORT Normal [facility] Comment on above: Performed By: #### B LDC #### [facility] [address] [place] [address] BLOOD CULTURE, BACTERIAL PATIENT: GRACIE BANUELOS LOCATION: 02[facility]0 BILL#: [id number] : 61 AGE: SEX: F ORDERED BY: JUSTYN RICHTER SOURCE: Blood COLLECTED: 10/28/22 12:04 ANTIBIOTICS AT DEB.: RECEIVED : 10/28/22 16:14 SITE: PERIPHERAL R E S U L T S BLOOD CULTURE, BACTERIAL FINAL 11/01/22 17:42 No Growth at 1 days No Growth at 2 days No Growth at 3 days NO GROWTH at 4 days - FINAL REPORT Normal [facility] Comment on above: Performed By: #### C MP #### [facility] [address] [place] [address] CBC AND DIFFERENTIALon 10-28 % AUTOMATED IMMATURE GRAN 0.9 % Normal 0.0 - 0.9 [facility] Comment on above: Result Comment: Iram ture Granulocyte Count (IG) includes promyelocytes, myelocytes and metamyelocytes but does not include bands. Percent differential counts (%) should be interpreted in the context of the absolute cell counts (cells/L). Performed By: #### C BCDF #### [facility] [address] [place] [address] Basophils (Bld) [#/Vol] 0.04 10*3/uL Normal 0.00 - 0.10 [facility] Comment on above: Performed By: #### C BCDF #### [facility] [address] [place] [address] Basophils/100 WBC (Bld) 0.5 % Normal 0.0 - 2.0 [facility] Comment on above: Performed By: #### C BCDF #### [facility] [address] [place] [address] Eosinophils (Bld) [#/Vol] 0.45 10*3/uL Normal 0.00 - 0.70 [facility] Comment on above: Performed By: #### C BCDF #### [facility] [address] [place] [address] Eosinophils/100 WBC (Bld) 5.5 % Normal 0.0 - 6.0 [facility] Comment on above: Performed By: #### C BCDF #### [facility] [address] [place] [address] Erythrocyte distribution width (RBC) [Ratio] 13.5 % Normal 11.5 - 14.5 [facility] Comment on above: Performed By: #### C BCDF #### [facility] [address] [place] [address] Hematocrit (Bld) [Volume fraction] 35.2 % Low 36.0 - 46.0 [facility] Comment on above: Performed By: #### C BCDF #### [facility] [address] [place] [address] Hemoglobin (Bld) [Mass/Vol] 11.2 g/dL Low 12.0 - 16.0 [facility] Comment on above: Performed By: #### C BCDF #### [facility] [address] [place] [address] Lymphocytes (Bld) [#/Vol] 0.72 10*3/uL Low 1.20 - 4.80 [facility] Comment on above: Performed By: #### C BCDF #### [facility] [address] [place] [address] Lymphocytes/100 WBC (Bld) 8.7 % Normal 13.0 - 44.0 [facility] Comment on above: Performed By: #### C BCDF #### [facility] [address] [place] [address] MCHC (RBC) [Mass/Vol] 31.8 g/dL Low 32.0 - 36.0 [facility] Comment on above: Performed By: #### C BCDF #### [facility] [address] [place] [address] MCV (RBC) [Entitic vol] 85 fL Normal 80 - 100 [facility] Comment on above: Performed By: #### C BCDF #### [facility] [address] [place] [address] Monocytes (Bld) [#/Vol] 0.72 10*3/uL Normal 0.10 - 1.00 [facility] Comment on above: Performed By: #### C BCDF #### [facility] [address] [place] [address] Monocytes/100 WBC (Bld) 8.7 % Normal 2.0 - 10.0 [facility] Comment on above: Performed By: #### C BCDF #### [facility] [address] [place] [address] Neutrophils (Bld) [#/Vol] 6.23 10*3/uL Normal 1.20 - 7.70 [facility] Comment on above: Performed By: #### C BCDF #### [facility] [address] [place] [address] Neutrophils/100 WBC (Bld) 75.7 % Normal 40.0 - 80.0 [facility] Comment on above: Performed By: #### C BCDF #### [facility] [address] [place] [address] NUCLEATED RBC 0.0 /100 WBC Normal 0.0-0.0 [facility] Comment on above: Performed By: #### C BCDF #### [facility] [address] [place] [address] Platelets (Bld) [#/Vol] 233 10*3/uL Normal 150 - 450 [facility] Comment on above: Performed By: #### C BCDF #### [facility] [address] [place] [address] RBC 4.15 x10E12/L Normal 4.00 - 5.20 [facility] Comment on above: Performed By: #### C BCDF #### [facility] [address] [place] [address] WBC (Bld) [#/Vol] 8.2 10*3/uL Normal 4.4 - 11.3 [facility] [place] Comment on above: Performed By: #### C BCDF #### [facility] [address] [place] [address] % AUTOMATED IMMATURE GRAN Canceled Normal [facility] Comment on above: Order Comment: TEST CBC AND DIFFERENTIAL WAS CANCELLED, 10/28/2022 16:16 Result Comment: Iram ture Granulocyte Count (IG) includes promyelocytes, myelocytes and metamyelocytes but does not include bands. Percent differential counts (%) should be interpreted in the context of the absolute cell counts (cells/L). Performed By: #### V ANCU #### [facility] [address] [place] [address] % BASOPHIL Canceled Normal [facility] Comment on above: Order Comment: TEST CBC AND DIFFERENTIAL WAS CANCELLED, 10/28/2022 16:16 Performed By: #### V ANCU #### [facility] [address] [place] [address] % EOSINOPHIL Canceled Normal [facility] Comment on above: Order Comment: TEST CBC AND DIFFERENTIAL WAS CANCELLED, 10/28/2022 16:16 Performed By: #### V ANCU #### [facility] [address] [place] [address] % LYMPHOCYTE Canceled Normal [facility] Comment on above: Order Comment: TEST CBC AND DIFFERENTIAL WAS CANCELLED, 10/28/2022 16:16 Performed By: #### V ANCU #### [facility] [address] [place] [address] % MONOCYTE Canceled Normal [facility] Comment on above: Order Comment: TEST CBC AND DIFFERENTIAL WAS CANCELLED, 10/28/2022 16:16 Performed By: #### V ANCU #### [facility] [address] [place] [address] % NEUTROPHIL Canceled Normal [facility] Comment on above: Order Comment: TEST CBC AND DIFFERENTIAL WAS CANCELLED, 10/28/2022 16:16 Performed By: #### V ANCU #### [facility] [address] [place] [address] BASOPHIL Canceled Normal [facility] Comment on above: Order Comment: TEST CBC AND DIFFERENTIAL WAS CANCELLED, 10/28/2022 16:16 Performed By: #### V ANCU #### [facility] [address] [place] [address] DIFFERENTIAL Canceled Normal [facility] Comment on above: Order Comment: TEST CBC AND DIFFERENTIAL WAS CANCELLED, 10/28/2022 16:16 Performed By: #### V ANCU #### [facility] [address] [place] [address] EOSINOPHIL Canceled Normal [facility] Comment on above: Order Comment: TEST CBC AND DIFFERENTIAL WAS CANCELLED, 10/28/2022 16:16 Performed By: #### V ANCU #### [facility] [address] [place] [address] HCT Canceled Normal [facility] Comment on above: Order Comment: TEST CBC AND DIFFERENTIAL WAS CANCELLED, 10/28/2022 16:16 Performed By: #### V ANCU #### [facility] [address] [place] [address] HGB Canceled Normal [facility] Comment on above: Order Comment: TEST CBC AND DIFFERENTIAL WAS CANCELLED, 10/28/2022 16:16 Performed By: #### V ANCU #### [facility] [address] [place] [address] LYMPHOCYTE Canceled Normal [facility] Comment on above: Order Comment: TEST CBC AND DIFFERENTIAL WAS CANCELLED, 10/28/2022 16:16 Performed By: #### V ANCU #### [facility] [address] [place] [address] MCHC Canceled Normal [facility] Comment on above: Order Comment: TEST CBC AND DIFFERENTIAL WAS CANCELLED, 10/28/2022 16:16 Performed By: #### V ANCU #### [facility] [address] [place] [address] MCV Canceled Normal [facility] Comment on above: Order Comment: TEST CBC AND DIFFERENTIAL WAS CANCELLED, 10/28/2022 16:16 Performed By: #### V ANCU #### [facility] [address] [place] [address] MONOCYTE Canceled Normal [facility] Comment on above: Order Comment: TEST CBC AND DIFFERENTIAL WAS CANCELLED, 10/28/2022 16:16 Performed By: #### V ANCU #### [facility] [address] [place] [id number] NEUTROPHIL Canceled Normal [facility] Comment on above: Order Comment: TEST CBC AND DIFFERENTIAL WAS CANCELLED, 10/28/2022 16:16 Performed By: #### V ANCU #### [facility] [address] [place] [id number] NUCLEATED RBC Canceled Normal [facility] Comment on above: Order Comment: TEST CBC AND DIFFERENTIAL WAS CANCELLED, 10/28/2022 16:16 Performed By: #### V ANCU #### [facility] [address] [place] [address] PLT Canceled Normal [facility] Comment on above: Order Comment: TEST CBC AND DIFFERENTIAL WAS CANCELLED, 10/28/2022 16:16 Performed By: #### V ANCU #### [facility] [address] [place] [address] RBC Canceled Normal [facility] Comment on above: Order Comment: TEST CBC AND DIFFERENTIAL WAS CANCELLED, 10/28/2022 16:16 Performed By: #### V ANCU #### [facility] [address] [place] [address] RDW-CV Canceled Normal [facility] Comment on above: Order Comment: TEST CBC AND DIFFERENTIAL WAS CANCELLED, 10/28/2022 16:16 Performed By: #### V ANCU #### [facility] [address] [place] [id number] WBC Canceled Normal [facility] Comment on above: Order Comment: TEST CBC AND DIFFERENTIAL WAS CANCELLED, 10/28/2022 16:16 Performed By: #### V ANCU #### [facility] [address] [place] [address] Clinical Note - Pharmacy v2o n 10-28-2022 Clinical Note - Pharmacy v2 Clinical Note - Pharmacy v2: Discharge Meds: Prescription Handkerchief Presser Medications Home Medications Review Status for Reconciliation: Complete Med Status: Patient Currently Takes Medications Drug Name: oxyCODONE 5 mg oral tablet Instructions: 1 tab(s) orally every 6 hours, As Needed -Pain - Severe (7-10) - G89.1 .ADOD - .10/28 Meds to Beds - . Patient Location [address] Drug Name: Bactrim DS 800 mg-160 mg oral tablet Instructions: 1 tab(s) orally 2 times a day STOP DATE 11/04/22 -.ADOD - .10/28 Meds to Beds .Patient Location [address] Drug Name: hydrOXYzine hydrochloride 25 mg oral tablet Instructions: 1 tab(s) orally every 6 hours, As needed, ITCHING -.ADOD - .10/28 Meds to Beds .Patient Location [address] Drug Name: loperamide 2 mg oral capsule Instructions: 1 cap(s) orally every 4 hours, As needed, Diarrhea -.ADOD - .10/28 Meds to Beds .Patient Location [address] Medications Deliveredsee above Medications Delivered Topatient; nurse Delivery Date/[id number] 11:43 Controlled Medications Given ToElizabeth Shanae Medications ReviewedReviewed medication timing, indication, and ADR with patient. Education TopicADR counseling; dosage, frequency, storage; medication indication; medication interactions Learnerpatient Barriers to Learningnone Methodverbal Outcome Evaluation2=meets goals/outcomes Allergy: Allergies Summary Allergy Allergen: penicillin Type: Drug Reaction: Hives/Urticaria Electronic Signatures: Aris Pugh (FORMERLY [facility]) (Signed 30-Oct-2022 07:56) Co-Signer: Discharge Meds, Allergy Cristela Hollis (FORMERLY [facility]) (Signed 28-Oct-2022 12:44) Authored: Discharge Meds, Allergy Last Updated: 30-Oct-2022 07:56 by Aris Pugh (FORMERLY [facility]) Normal [facility] Complete Blood Count + Diffe yamil 10-28-2022 Basophils/100 WBC (Bld) 0.5 % 0.0 - 2.0 [facility] Work Phone: Erythrocyte distribution width (RBC) [Ratio] 13.5 % See Below [facility] Work [...] Lymphocytes/100 WBC (Bld) 8.7 % See Below [facility] Work Phone: Comment on above: Reference Range: 13. 0 - 44.0 MCHC (RBC) [Mass/Vol] 31.8 g/dL below low threshold See Below [facility] Work Phone: Comment on above: Reference Range: 32. 0 - 36.0 MCV (RBC) [Entitic vol] 85 fL 80 - 100 [facility] Work Phone: Monocytes/100 WBC (Bld) 8.7 % 2.0 - 10.0 [facility] Work Phone: Neutrophils/100 WBC (Bld) 75.7 % See Below [facility] Work Phone: Comment on above: Reference Range: 40. 0 - 80.0 Platelets (Bld) [#/Vol] 233 10*3/uL 150 - 450 -[facility] Work Phone: RBC (Bld) [#/Vol] 4.15 {x10E12/L} See Below [facility] N[facility]alie [facility] Work Phone: Comment on above: Reference Range: 4.0 0 - 5.20 WBC (Bld) [#/Vol] 8.2 10*3/uL 4.4 - 11.3 [facility] Work Phone: Complete Blood Count + Differential 0.04 {x10E9/L} See Below [facility] Work Phone: Comment on above: Reference Range: 0.0 0 - 0.10 Complete Blood Count + Differential 0.45 {x10E9/L} See Below [facility] Work Phone: Comment on above: Reference Range: 0.0 0 - 0.70 Complete Blood Count + Differential 0.72 {x10E9/L} below low threshold See Below [facility] Work Phone: Comment on above: Reference Range: 0.1 0 - 1.00 Reference Range: 1.2 0 - 4.80 Complete Blood Count + Differential 6.23 {x10E9/L} See Below [facility] Work Phone: Comment on above: Reference [...] Blood Count + Differential 0.0 {/100_WBC} 0.0-0.0 [facility] Work Phone: Cult, Bloodon 10-28-2022 Bacteria identified Cx Nom (Bld) [facility] Work Phone: Daily Progress Note-Infectio us [...] sloughing. Objective Data: Objective Information: T PRBPMAPSpO2 [id number]/8292% Date/Time10/28 13: 13: 13: 13: 13:07 Range(36.1C [...] OSH. First full day of therapy at [facility] was on 10/21. MRSA swab collected here today. Would continue to treat w/ PO amox-clav once ready for d/c. If MRSA swab is p (more content not included)... Normal [facility] Daily Progress Note-Ophthalm ologyon 10-28-2022 Daily Progress Note-Ophthalmology Service: Ophthalmology Subjective Data: GRACIE BANUELOS is a 57 year old Female who is Hospital Day # 6. Objective Data: Objective Information: T PRBPMAPSpO2 [id number]/7793% Date/Time10/28 11: 11: 11: 11: 11:31 Range(36.1C [...] progressed. On 10/19/22 she presented to the [place] [facility] and CT orbits showed findings concerning for right orbital cellulitis. WBC was reportedly 13.9, ESR 75, and CRP 42.6. She was prescribed clindamycin to take at home, but her pain only worsened and she presented to [facility] on 10/20/22 for further management. [...] Full to count fingers OU Color vision: 11 OU ANTERIOR SEGMENT: OD: Lids/Lashes: trace RUL [...] CT Orbit Sella Inner, by report from [employer] shows: 1. Marked abnormality of the soft [...] which I personally reviewed, by report from [facility] shows Abnormal infiltration throughout the right retroantral and extraconal fat as well as the pterygopalatine fossa and diffusely throughout the right graduate intern space with asymmetry of the muscles of mastication. Additional mild enlargement of the right inferior and lateral rectus. These fi (more content not included)... Normal [facility] HEPATIC FUNCTION PANELon Albumin [Mass/Vol] 3.5 g/dL Normal 3.4 - 5.0 [facility] [place] Comment on above: Performed By: #### C MP #### [facility] [address] [place] [address] ALP [Catalytic activity/Vol] 90 U/L Normal 33 - 110 [facility] Comment on above: Performed By: #### C MP #### [facility] [address] [place] [address] ALT [Catalytic activity/Vol] 23 U/L Normal 7 - 45 [facility] Comment on above: Result Comment: Gretta ents treated with Sulfasalazine may generate falsely decreased results for ALT. Performed By: #### C MP #### [facility] [address] [place] [address] AST [Catalytic activity/Vol] 23 U/L Normal 9 - 39 [facility] Comment on above: Performed By: #### C MP #### [facility] [address] [place] [address] Bilirubin [Mass/Vol] 0.2 mg/dL Normal 0.0 - 1.2 [facility] Comment on above: Performed By: #### C MP #### [facility] [address] [place] [address] Bilirubin.indirect [Mass/Vol] 0.1 mg/dL Normal 0.0 - 0.3 [facility] Comment on above: Performed By: #### C MP #### [facility] [address] [place] [address] Protein [Mass/Vol] 6.3 g/dL Low 6.4 - 8.2 [facility] [place] Comment on above: Performed By: #### C MP #### [facility] [address] [place] [address] Hepatic Function Panelon Albumin BCP dye [Mass/Vol] 3.5 g/dL 3.4 - 5.0 [facility] Work Phone: [phone] ALP [Catalytic activity/Vol] 90 U/L 33 - 110 [facility] Work Phone: [phone] ALT With P-5'-P [Catalytic activity/Vol] 23 U/L 7 - 45 [facility] Work Phone: [phone] Comment on above: Patients treated wit h Sulfasalazine may generate falsely decreased results for ALT. AST With P-5'-P [Catalytic activity/Vol] 23 U/L 9 - 39 [facility] Work Phone: [phone] Bilirubin [Mass/Vol] 0.2 mg/dL 0.0 - 1.2 [facility] Work Phone: Bilirubin.direct [Mass/Vol] 0.1 mg/dL 0.0 - 0.3 [facility] Work Phone: Protein [Mass/Vol] 6.3 g/dL below low threshold 6.4 - 8.2 [facility] Work Phone: RENAL FUNCTION PANELon 10-28 Albumin [Mass/Vol] 3.4 g/dL Normal 3.4 - 5.0 [facility] [place] Comment on above: Performed By: #### C MP #### [facility] [address] [place] [address] Anion gap [Moles/Vol] 13 mmol/L Normal 10 - 20 [facility] Comment on above: Performed By: #### C MP #### [facility] [address] [place] [address] Calcium [Mass/Vol] 8.7 mg/dL Normal 8.6 - 10.6 [facility] [place] Comment on above: Performed By: #### C MP #### [facility] [address] [place] [address] Chloride [Moles/Vol] 104 mmol/L Normal 98 - 107 [facility] Comment on above: Performed By: #### C MP #### [facility] [address] [place] [address] Creatinine [Mass/Vol] 1.39 mg/dL High 0.50 - 1.05 [facility] Comment on above: Performed By: #### C MP #### [facility] [address] [place] [address] GFR/1.73 sq M.predicted among non-blacks MDRD (S/P/Bld) [Vol rate/Area] 44 mL/min/{1.73_m2} Abnormal >90 [facility] Comment on above: Result Comment: CALC ULATIONS OF ESTIMATED GFR ARE PERFORMED USING THE 2020 CKD-EPI STUDY REFIT EQUATION WITHOUT THE RACE VARIABLE FOR THE IDMS-TRACEABLE CREATININE METHODS. https://jasn.asnjournals.org/content//ASN.27273 36891 Performed By: #### C MP #### [facility] [address] [place] [address] Glucose [Mass/Vol] 85 mg/dL Normal 74 - 99 [facility] [place] Comment on above: Performed By: #### C MP #### [facility] [address] [place] [address] HCO3 (Bld) [Moles/Vol] 26 mmol/L Normal 21 - 32 [facility] Comment on above: Performed By: #### C MP #### [facility] [address] [place] [address] Phosphate [Mass/Vol] 4.1 mg/dL Normal 2.5 - 4.9 [facility] Comment on above: Result Comment: The performance characteristics of phosphorus testing in heparinized plasma have been validated by the individual laboratory site where testing is performed. Testing on heparinized plasma is not approved by the FDA; however, such approval is not necessary. Performed By: #### C MP #### [facility] [address] [place] [address] Potassium [Moles/Vol] 3.9 mmol/L Normal 3.5 - 5.3 [facility] Comment on above: Performed By: #### C MP #### [facility] [address] [place] [address] Sodium [Moles/Vol] 139 mmol/L Normal 136 - 145 [facility] [place] Comment on above: Performed By: #### C MP #### [facility] [address] [place] [address] Urea nitrogen [Mass/Vol] 10 mg/dL Normal 6 - 23 [facility] Comment on above: Performed By: #### C MP #### [facility] [address] [place] [address] Renal Function Panelon 10-28 Albumin BCP dye [...] [Mass/Vol] 85 mg/dL 74 - 99 [facility] Work Phone: Phosphate [Mass/Vol] 4.1 [...] [Moles/Vol] 139 mmol/L 136 - 145 [facility] Work Phone: Urea nitrogen [Mass/Vol] 10 mg/dL 6 - 23 [facility] Work Phone: Renal Function Panel 44 {mL/min/1.73m2} Abnormal >90 [facility] Work Phone: Comment on above: CALCULATIONS OF PAVAN MATED GFR ARE PERFORMED USING THE 2020 CKD-EPI STUDY REFIT EQUATION WITHOUT THE RACE VARIABLE FOR THE IDMS-TRACEABLE CREATININE METHODS.https://jasn.asnjournals.org/content/early/A SN.7787827257 UA MICROSCOPICon 10-28-2022 RBC 2 /HPF Normal 0-5 [facility] Comment on above: Performed By: #### C MP #### [facility] [address] [place] [address] SQUAMOUS EPITH. CELLS 7 /HPF Normal [facility] Comment on above: Performed By: #### C MP #### [facility] [address] [place] [address] WBC 2 /HPF Normal 0-5 [facility] Comment on above: Performed By: #### C MP #### [facility] [address] [place] [address] URINALYSIS WITH CULTURE IF I NDICATEDon 10-28-2022 Appearance (U) HAZY Normal CLEAR [facility] Comment on above: Performed By: #### C MP #### [facility] [address] [place] [address] Bilirubin Ql (U) Negative Normal NEGATIVE [facility] Comment on above: Performed By: #### C MP #### [facility] [address] [place] [address] Color (U) YELLOW Normal STRAW,YELLOW [facility] Comment on above: Performed By: #### C MP #### [facility] [address] [place] [address] Glucose Ql (U) Negative Normal NEGATIVE [facility] Comment on above: Performed By: #### C MP #### [facility] [address] [place] [address] Hemoglobin Ql (U) Negative Normal NEGATIVE [facility] Comment on above: Performed By: #### C MP #### [facility] [address] [place] [address] Ketones Ql (U) Negative Normal NEGATIVE [facility] Comment on above: Performed By: #### C MP #### [facility] [address] [place] [address] Leukocyte esterase Test strip Ql (U) Negative Normal NEGATIVE [facility] Comment on above: Performed By: #### C MP #### [facility] [address] [place] [address] Nitrite Ql (U) Negative Normal NEGATIVE [facility] Comment on above: Performed By: #### C MP #### [facility] [address] [place] [address] pH (U) 6.0 [pH] Normal 5.0 - 8.0 [facility] Comment on above: Performed By: #### C MP #### [facility] [address] [place] [address] Protein Ql (U) 30 (1+) Abnormal NEGATIVE [facility] Comment on above: Performed By: #### C MP #### [facility] [facility] [address] [place] [address] Specific gravity (U) [Rel density] 1.020 Normal 1.005 - 1.035 [facility] Comment on above: Performed By: #### C MP #### [facility] [address] [place] [address] Urobilinogen (U) [Mass/Vol] mg/dL Normal 0.0 - 1.9 [facility] Comment on above: Performed By: #### C MP #### [facility] [address] [place] [address] Color (U) YELLOW See Below [facility]- Wilfrid Rahat Work Phone: Comment on above: Reference Range: STR AW,YELLOW Glucose Ql (U) Negative NEGATIVE [facility]- Wilfrid Giang Work Phone: [phone] Ketones Ql (U) Negative NEGATIVE [facility]- Wilfrid Rahat Work Phone: [phone] Leukocyte esterase Test strip Ql (U) Negative NEGATIVE [facility] Wilfrid Rahat Work Phone: [phone] pH (U) 6.0 [pH] 5.0 - 8.0 [facility] Wilfrid Rahat Work Phone: [phone] Protein (U) [Mass/Vol] 30 (1+) Abnormal NEGATIVE [facility] Wilfrid Rahat Work Phone: [phone] RBC (U) [#/Vol] Negative NEGATIVE [facility]- Wilfridjodi Giang Work Phone: [phone] Specific gravity (U) [Rel density] 1.020 1 See Below [facility]- Wilfrid Rahat Work Phone: [phone] Comment on above: Reference Range: 1.0 05 - 1.035 URINALYSIS WITH CULTURE IF INDICATED Negative NEGATIVE [facility] - Wilfrid Rahat Work Phone: [phone] URINALYSIS WITH CULTURE IF INDICATED <2.0 0.0 - 1.9 [facility] - Wilfrid Rahat Work Phone: [phone] URINALYSIS WITH CULTURE IF INDICATED HAZY CLEAR [facility] - Wilfrid Rahat Work Phone: [phone] Urinalysis, Microscopicon Urinalysis, Microscopic 7 {/HPF} [facility]- Wilfrid Giang Work Phone: [phone] Urinalysis, Microscopic 2 {/HPF} 0-5 [facility] Wilfrid Giang Work Phone: [phone] VANCOMYCINon 10-28-2022 VANCOMYCIN 13.7 ug/mL Normal [facility] Comment on above: Result Comment: .The rapeutic Ranges: Peak: All ages: 30.0-40.0 ug/mL . Trough: Age <18y: 5.0-10.0 ug/mL . Age >/= 18y: 5.0-20.0 ug/mL . Vancomycin trough concentrations drawn immediately prior to the next dose at steady-state are preferred for monitoring patients treated with vancomycin. Ref.: Am J Health-Syst Pharm 66: 83-98, 2008. Performed By: #### C #### [facility] [address] [place] [address] ANCA-ASSOCIATED VASCULITIS P ROFILE [ANCA,MPO,PR3]on 10-27-2022 Myeloperoxidase Ab Qn (S) 0 AU/mL 0-19 [employer] Work Phone: Comment on above: INTERPRETIVE INFORMA TION: Myeloperoxidase Abs, IgG 19 AU/mL or Less ......... Negative 20-25 AU/mL .............. Equivocal 26 AU/mL or Greater ...... PositiveApproximately 90% of patients with a P-ANCA pattern by IFA have antibodies specific for MPO. Proteinase 3 Ab Qn (S) 0 AU/mL 0-19 [employer] Work Phone: Comment on above: INTERPRETIVE INFORMA TION: Serine Proteinase 3, IgG 19 AU/mL or Less ........ Negative 20-25 AU/mL ............. Equivocal 26 AU/mL or Greater ..... PositiveApproximately 85% of patients with a C-ANCA pattern by IFA have antibodies specific for PR3. ANCA-ASSOCIATED VASCULITIS PROFILE [ANCA,MPO,PR3] Not detected See Below [employer] Work Phone: Comment on above: Reference Range: Non e DetectedINTERPRETIVE INFORMATION: ANCA IFA Pattern Neutrophil Cytoplasmic Antibodies (C-ANCA = granular cytoplasmic staining, P-ANCA = perinuclear staining) are found in the serum of over 90 percent of patients with certain necrotizing systemic vasculitides, and usually in less than 5 percent of patients with collagen vascular disease or arthritis.Performed By: [employer] [place] [address] [id number] Director: Kyle Hyatt MD, PhD ANCA-ASSOCIATED VASCULITIS PROFILE [ANCA,MPO,PR3] <1:20 <1:20 [facility]- Wilfrid Giang Work Phone: CBC AND DIFFERENTIALon 10-27 % AUTOMATED IMMATURE GRAN 0.7 % Normal 0.0 - 0.9 [facility] Comment on above: Result Comment: Iram ture Granulocyte Count (IG) includes promyelocytes, myelocytes and metamyelocytes but does not include bands. Percent differential counts (%) should be interpreted in the context of the absolute cell counts (cells/L). Performed By: #### U A #### [facility] [address] [place] [address] Basophils (Bld) [#/Vol] 0.05 10*3/uL Normal 0.00 - 0.10 [facility] Comment on above: Performed By: #### U A #### [facility] [address] [place] [address] Basophils/100 WBC (Bld) 0.5 % Normal 0.0 - 2.0 [facility] Comment on above: Performed By: #### U A #### [facility] [address] [place] [address] Eosinophils (Bld) [#/Vol] 0.99 10*3/uL High 0.00 - 0.70 [facility] Comment on above: Performed By: #### U A #### [facility] [address] [place] [address] Eosinophils/100 WBC (Bld) 10.6 % Normal 0.0 - 6.0 [facility] Comment on above: Performed By: #### U A #### [facility] [address] [place] [address] Erythrocyte distribution width (RBC) [Ratio] 13.3 % Normal 11.5 - 14.5 [facility] Comment on above: Performed By: #### U A #### [facility] [address] [place] [address] Hematocrit (Bld) [Volume fraction] 35.9 % Low 36.0 - 46.0 [facility] Comment on above: Performed By: #### U A #### [facility] [address] [place] [address] Hemoglobin (Bld) [Mass/Vol] 11.7 g/dL Low 12.0 - 16.0 [facility] Comment on above: Performed By: #### U A #### [facility] [address] [place] [address] Lymphocytes (Bld) [#/Vol] 1.29 10*3/uL Normal 1.20 - 4.80 [facility] Comment on above: Performed By: #### U A #### [facility] [address] [place] [address] Lymphocytes/100 WBC (Bld) 13.8 % Normal 13.0 - 44.0 [facility] Comment on above: Performed By: #### U A #### [facility] [address] [place] [address] MCHC (RBC) [Mass/Vol] 32.6 g/dL Normal 32.0 - 36.0 [facility] Comment on above: Performed By: #### U A #### [facility] [address] [place] [address] MCV (RBC) [Entitic vol] 82 fL Normal 80 - 100 [facility] Comment on above: Performed By: #### U A #### [facility] [address] [place] [address] Monocytes (Bld) [#/Vol] 1.18 10*3/uL High 0.10 - 1.00 [facility] Comment on above: Performed By: #### U A #### [facility] [address] [place] [address] Monocytes/100 WBC (Bld) 12.6 % Normal 2.0 - 10.0 [facility] Comment on above: Performed By: #### U A #### [facility] [address] [place] [address] Neutrophils (Bld) [#/Vol] 5.78 10*3/uL Normal 1.20 - 7.70 [facility] Comment on above: Performed By: #### U A #### [facility] [address] [place] [address] Neutrophils/100 WBC (Bld) 61.8 % Normal 40.0 - 80.0 [facility] Comment on above: Performed By: #### U A #### [facility] [address] [place] [address] NUCLEATED RBC 0.0 /100 WBC Normal 0.0-0.0 [facility] Comment on above: Performed By: #### U A #### [facility] [address] [place] [address] Platelets (Bld) [#/Vol] 318 10*3/uL Normal 150 - 450 [facility] Comment on above: Performed By: #### U A #### [facility] [address] [place] [address] RBC 4.40 x10E12/L Normal 4.00 - 5.20 [facility] Comment on above: Performed By: #### U A #### [facility] [address] [place] [address] WBC (Bld) [#/Vol] 9.4 10*3/uL Normal 4.4 - 11.3 [facility] [place] Comment on above: Performed By: #### U A #### [facility] [address] [place] [address] COMPREHENSIVE PANELon 2022 Albumin [Mass/Vol] 3.5 g/dL Normal 3.4 - 5.0 [facility] [place] Comment on above: Performed By: #### U A #### [facility] [address] [place] [address] ALP [Catalytic activity/Vol] 109 U/L Normal 33 - 110 [facility] Comment on above: Performed By: #### U A #### [facility] [address] [place] [address] ALT [Catalytic activity/Vol] 20 U/L Normal 7 - 45 [facility] Comment on above: Result Comment: Gretta ents treated with Sulfasalazine may generate falsely decreased results for ALT. Performed By: #### U A #### [facility] [address] [place] [address] Anion gap [Moles/Vol] 15 mmol/L Normal 10 - 20 [facility] Comment on above: Performed By: #### U A #### [facility] [address] [place] [address] AST [Catalytic activity/Vol] 20 U/L Normal 9 - 39 [facility] Comment on above: Performed By: #### U A #### [facility] [address] [place] [address] Bilirubin [Mass/Vol] 0.3 mg/dL Normal 0.0 - 1.2 [facility] Comment on above: Performed By: #### U A #### [facility] [address] [place] [address] Calcium [Mass/Vol] 9.2 mg/dL Normal 8.6 - 10.6 [facility] [place] Comment on above: Performed By: #### U A #### [facility] [address] [place] [address] Chloride [Moles/Vol] 102 mmol/L Normal 98 - 107 [facility] Comment on above: Performed By: #### U A #### [facility] [address] [place] [address] Creatinine [Mass/Vol] 1.53 mg/dL High 0.50 - 1.05 [facility] Comment on above: Performed By: #### U A #### [facility] [address] [place] [address] GFR/1.73 sq M.predicted among non-blacks MDRD (S/P/Bld) [Vol rate/Area] 39 mL/min/{1.73_m2} Abnormal >90 [facility] Comment on above: Result Comment: CALC ULATIONS OF ESTIMATED GFR ARE PERFORMED USING THE 2020 CKD-EPI STUDY REFIT EQUATION WITHOUT THE RACE VARIABLE FOR THE IDMS-TRACEABLE CREATININE METHODS. https://jasn.asnjournals.org/content//ASN.25163 20427 Performed By: #### U A #### [facility] [address] [place] [address] Glucose [Mass/Vol] 91 mg/dL Normal 74 - 99 [facility] [place] Comment on above: Performed By: #### U A #### [facility] [address] [place] [address] HCO3 (Bld) [Moles/Vol] 24 mmol/L Normal 21 - 32 [facility] Comment on above: Performed By: #### U A #### [facility] [address] [place] [address] Potassium [Moles/Vol] 4.4 mmol/L Normal 3.5 - 5.3 [facility] Comment on above: Performed By: #### U A #### [facility] [address] [place] [address] Protein [Mass/Vol] 6.6 g/dL Normal 6.4 - 8.2 [facility] [place] Comment on above: Performed By: #### U A #### [facility] [address] [place] [address] Sodium [Moles/Vol] 137 mmol/L Normal 136 - 145 [facility] [place] Comment on above: Performed By: #### U A #### [facility] [address] [place] [address] Urea nitrogen [Mass/Vol] 12 mg/dL Normal 6 - 23 [facility] Comment on above: Performed By: #### U A #### [facility] [address] [place] [address] Complete Blood Count + Diffe suhason 10-27-2022 Basophils/100 WBC (Bld) 0.5 % 0.0 - 2.0 [facility] Wilfrid Giang Work Phone: Erythrocyte distribution width (RBC) [Ratio] 13.3 % See Below [facility] Wilfrid Giang Work Phone: Comment on above: Reference Range: 11. 5 - 14.5 Hematocrit (Bld) [Volume fraction] 35.9 % below low threshold See Below [facility]- Wilfridjodi Giang Work Phone: Comment on above: Reference Range: 36. 0 - 46.0 Hemoglobin (Bld) [Mass/Vol] 11.7 g/dL below low threshold See Below [facility] Wilfrid Giang Work Phone: [phone] Comment on above: Reference Range: 12. 0 - 16.0 Lymphocytes/100 WBC (Bld) 13.8 % See Below [facility]MedicineSierra Giang Work Phone: [phone] Comment on above: Reference Range: 13. 0 - 44.0 MCHC (RBC) [Mass/Vol] 32.6 g/dL See Below MG- MedicineSierra Giang Work Phone: [phone] Comment on above: Reference Range: 32. 0 - 36.0 MCV (RBC) [Entitic vol] 82 fL 80 - 100 [facility]Ulices [facility] Work Phone: [phone] Monocytes/100 WBC (Bld) 12.6 % 2.0 - 10.0 -Ulices Giang Work Phone: [phone] Neutrophils/100 WBC (Bld) 61.8 % See Below MGSierraMedicineSierra Giang Work Phone: [phone] Comment on above: Reference Range: 40. 0 - 80.0 Platelets (Bld) [#/Vol] 318 10*3/uL 150 - 450 [facility]Ulices [facility] Work Phone: [phone] RBC (Bld) [#/Vol] 4.40 {x10E12/L} See Below [facility] -MedicineSierra Giang Work Phone: [phone] Comment on above: Reference Range: 4.0 0 - 5.20 WBC (Bld) [#/Vol] 9.4 10*3/uL 4.4 - 11.3 [facility] icineSierra Giang Work Phone: [phone] Complete Blood Count + Differential 0.05 {x10E9/L} See Below [facility]icineSierra [facility] Work Phone: Comment on above: Reference Range: 0.0 0 - 0.10 Complete Blood Count + Differential 0.99 {x10E9/L} above high threshold See Below [facility] Wilfrid Giang Work Phone: Comment on above: Reference Range: 0.0 0 - 0.70 Complete Blood Count + Differential 1.18 {x10E9/L} above high threshold See Below Jerod Giang Work Phone: Comment on above: Reference Range: 0.1 0 - 1.00 Complete Blood Count + Differential 1.29 {x10E9/L} See Below FidzupUlices Giang Work Phone: Comment on above: Reference Range: 1.2 0 - 4.80 Complete Blood Count + Differential 5.78 {x10E9/L} See Below Jerod Giang Work Phone: Comment on above: Reference Range: 1.2 0 - 7.70 Complete Blood Count + Differential 10.6 % 0.0 - 6.0 Jerod Giang Work Phone: Complete Blood Count + Differential 0.7 % 0.0 - 0.9 Jerod Giang Work [...] improved. Objective Data: Objective Information: T PRBPMAPSpO2 [id number]/7893% Date/Time10/27 14: 14: 14: 14: 14:12 Range(36.2C [...] OSH. First full day of therapy at [facility] was on 10/21. MRSA swab collected here today. Would continue to treat w/ PO amox-clav once ready for d/c. If MRSA swab is positive, can transition or change to TMP-SMX. #CHUY Baseline <1, Cr 1.5. Could be combination of vanc and pip-tazo; Cr currently stab (more content not included)... Normal [facility] Daily Progress Note-Medicine on 10-27-2022 [...] lid. Objective Data: Objective Information: T PRBPMAPSpO2 [id number]/8297% Date/Time10/27 4: 4: 4: 4: 4:29 Range(36.3C [...] that it started the day she left [facility]. C. diff work up at [facility] came back negative - Likely due to Abx - Started on Immodium as needed - Will consider C diff PCR if diarrhea continues (more content not included)... Normal [facility] Daily Progress Note-Ophthalm ologyon 10-27-2022 Daily Progress Note-Ophthalmology Service: Ophthalmology Subjective Data: GRACIE BANUELOS is a 57 year old Female who is Hospital Day # 5. Objective Data: Objective Information: T PRBPMAPSpO2 [id number]/8297% Date/Time10/27 4: 4: 4: 4: 4:29 Range(36.3C [...] progressed. On 10/19/22 she presented to the [place] [facility] and CT orbits showed findings concerning for right orbital cellulitis. WBC was reportedly 13.9, ESR 75, and CRP 42.6. She was prescribed clindamycin to take at home, but her pain only worsened and she presented to [facility] on 10/20/22 for further management. [...] CT Orbit Sella Inner, by report from [employer] shows: 1. Marked abnormality of the soft [...] orbit. 5. (more content not included)... Normal [facility] EMR ADDONon 10-27-2022 ADDON CONFIRMATION REQUEST REC'D Normal [facility] Comment on above: Performed By: #### U A #### [facility] [address] [place] [address] GLUCOSE-POCTon 10-27-2022 Glucose [Mass/Vol] 100 mg/dL High 74 - 99 [facility] [place] Comment on above: Performed By: #### U A #### [facility] [address] [place] [address] Laboratory - Chemistry and C hemistry - challengeon 10-27-2022 Potassium (U) [Moles/Vol] 6 mmol/L See Below [facility] [employer] [employer] Work Phone: Comment on above: Reference Range: Not Established Potassium/Creatinine (U) [Molar ratio] 22 {mmol/g_Creat} See Below [facility] Work Phone: Comment on above: Reference Range: Not Established Sodium (U) [Moles/Vol] 18 mmol/L See Below [facility] Work Phone: Comment on above: Reference Range: Not Established Sodium/Creatinine (U) [Ratio] 67 {mmol/g_Creat} See Below [facility] Wilfrid Giang Work Phone: Comment on above: Reference Range: Not Established Glucose [Mass/Vol] 100 mg/dL above high threshold 74 - 99 [facility] Wilfrid Giang Work Phone: Albumin BCP dye [Mass/Vol] 3.5 g/dL 3.4 - 5.0 [facility] Wilfrid Giang Work Phone: [phone] ALP [Catalytic activity/Vol] 109 U/L 33 - 110 [facility] Work Phone: ALT With P-5'-P [Catalytic activity/Vol] 20 U/L 7 - 45 [facility] Work Phone: Comment on above: Patients treated wit h Sulfasalazine may generate falsely decreased results for ALT. Anion gap [Moles/Vol] 15 mmol/L 10 - [address] [facility] Wilfrid Giang Work Phone: AST With P-5'-P [Catalytic activity/Vol] 20 U/L 9 - 39 [facility] Wilfrid Giang Work Phone: Bilirubin [Mass/Vol] 0.3 mg/dL 0.0 - 1.2 [facility] Work Phone: Calcium [Mass/Vol] 9.2 mg/dL 8.6 - 10.6 [facility] icine Wilfrid Giang Work Phone: [phone] Chloride [Moles/Vol] 102 mmol/L 98 - 107 [facility] Work Phone: CO2 [Moles/Vol] 24 mmol/L 21 - 32 [facility] ne Wilfrid Haywood Work Phone: [phone] Creatinine [Mass/Vol] 1.53 mg/dL above high threshold See Below [facility] Yuen Giang Work Phone: Comment on above: Reference Range: 0.5 0 - 1.05 Glucose [Mass/Vol] 91 mg/dL 74 - 99 [facility] rigoberto Giang Work Phone: Potassium [Moles/Vol] 4.4 mmol/L 3.5 - 5.3 [facility] Wilfrid Giang Work Phone: Protein [Mass/Vol] 6.6 g/dL 6.4 - 8.2 [facility] rigoberto Giang Work Phone: Sodium [Moles/Vol] 137 mmol/L 136 - 145 [facility] giovany- Wilfrid Giang Work Phone: Urea nitrogen [Mass/Vol] 12 mg/dL 6 - 23 [facility] Wilfrid Giang Work Phone: MRSA Screenon 10-27-2022 Staphylococcus sp identified Org specific cx Nom (Unsp spec) MG-Ulices [facility]ang Work Phone: No Panel Informationon 10-27 39 {mL/min/1.73m2} Abnormal >90 [facility] rigoberto Giang Work Phone: Comment on above: CALCULATIONS OF PAVAN MATED GFR ARE PERFORMED USING THE 2020 CKD-EPI STUDY REFIT EQUATION WITHOUT THE RACE VARIABLE FOR THE IDMS-TRACEABLE CREATININE METHODS.https://jasn.asnjournals.org/content//A SN.3391731854 POTASSIUM, URINE SPOTon 09-30 POT/CREAT RATIO 22 mmol/g Creat Normal Not Established [facility] Comment on above: Performed By: #### U A #### [facility] [address] [place] [address] POTASSIUM,URINE SPOT 6 mmol/L Normal Not Established [facility] Comment on above: Performed By: #### U A #### [facility] [address] [place] [address] SODIUM, URINE SPOTon 023 CREATININE,URINE 27.0 mg/dL Normal 20.0 - 320.0 [facility] [place] Comment on above: Performed By: #### C MP #### [facility] [address] [place], [place] Performed By: #### U A #### [facility] [address] [place], [place] Sodium (U) [Moles/Vol] 18 mmol/L Normal Not Established [facility] Comment on above: Performed By: #### C MP #### [facility] [address] [place], [place] SODIUM/CREAT RATIO 67 mmol/g Creat Normal Not Established [facility] Comment on above: Performed By: #### C MP #### [facility] [address] [place], [place] STAPH/MRSA SCREENon 10-27-19 STAPH/MRSA SCREEN PATIENT: FERNIE BANUELOS LOCATION: [place] [address] BILL#: [id number] : 61 AGE: SEX: F ORDERED BY: JUSTYN RICHTER SOURCE: ANTERIOR NARES COLLECTED: 10/27/22 15:12 ANTIBIOTICS AT DEB.: RECEIVED : 10/27/22 17:38 SITE: Nares R E S U L T S STAPH/MRSA SCREEN FINAL 10/29/22 11:04 NO Staphylococcus aureus ISOLATED. Normal [facility] Comment on above: Performed By: #### S TAPH #### [facility] [address] [place], [place] T-SPOT TBon 10-27-2022 NIL[NEG]CONTROL SPOT COUNT Passed Normal [facility] Comment on above: Performed By: #### V ANCU #### [facility] [address] [place] [address] PANEL A SPOT COUNT 0 Normal [facility] [place] Comment on above: Performed By: #### V ANCU #### [facility] [address] [place] [address] PANEL B SPOT COUNT 0 Normal [facility] [place] Comment on above: Performed By: #### V ANCU #### [facility] [address] [place] [address] POS CONTROL SPOT COUNT Passed Normal [facility] Comment on above: Performed By: #### V ANCU #### [facility] [address] [place] [address] T-SPOT.TB INTERP Negative Normal Normal Value: Negative [facility] Comment on above: Result Comment: [...] test. Performed By: #### V ANCU #### [facility] [address] [place] [id number] TOTAL PROTEIN, URINE SPOTon 10-27-2022 T. PROTEIN/CREAT RATIO 0.19 mg/mg Creat High 0.00 - 0.17 [facility] Comment on above: Performed By: #### C MP #### [facility] [address] [place] [address] TOTAL PROT,URINE SPOT 5 mg/dL Normal 5 - 24 [facility] Comment on above: Performed By: #### C MP #### [facility] [address] [facility] [place] [phone] Telephone Encounteron 2022 [employer] Authentication Interface Message Text Ynes from called requesting a 2 week follow appointment for this pt. Pt is being discharged today for eye pain. Pt was recently seen on 10/22/2022. Where should I schedule this pt ? Thank you Sarah Conde Normal [facility] Total Protein, Urine Spoton 10-27-2022 Creatinine (U) [Mass/Vol] 27.0 mg/dL See Below -[facility]- Wilfrid Giang Work Phone: Comment on above: Reference Range: 20. 0 - 320.0 Protein (U) [Mass/Vol] 5 mg/dL 5 - 24 -[facility] Wilfrid Giang Work Phone: Protein/Creatinine (U) [Ratio] 0.19 {mg/mg_Creat} above high threshold See Below [facility] Wilfrid Giang Work Phone: Comment on above: Reference Range: 0.0 0 - 0.17 URINALYSISon 10-27-2022 Appearance (U) CLEAR Normal CLEAR [facility] Comment on above: Performed By: #### U A #### [facility] [address] [place] [address] Bilirubin Ql (U) Negative Normal NEGATIVE [facility] Comment on above: Performed By: #### U A #### [facility] [address] [place] [address] Color (U) STRAW Normal STRAW,YELLOW [facility] Comment on above: Performed By: #### U A #### [facility] [address] [place] [address] Glucose Ql (U) 50 (TRACE) Abnormal NEGATIVE [facility] Comment on above: Performed By: #### U A #### [facility] [address] [place] [address] Hemoglobin Ql (U) Negative Normal NEGATIVE [facility] Comment on above: Performed By: #### U A #### [facility] [address] [place] [address] Ketones Ql (U) Negative Normal NEGATIVE [facility] Comment on above: Performed By: #### U A #### [facility] [address] [place] [address] Leukocyte esterase Test strip Ql (U) Negative Normal NEGATIVE [facility] Comment on above: Performed By: #### U A #### [facility] [address] [place] [address] Nitrite Ql (U) Negative Normal NEGATIVE [facility] Comment on above: Performed By: #### U A #### [facility] [address] [place] [address] pH (U) 6.0 [pH] Normal 5.0 - 8.0 [facility] Comment on above: Performed By: #### U A #### [facility] [address] [place] [address] Protein Ql (U) Negative Normal NEGATIVE [facility] Comment on above: Performed By: #### U A #### [facility] [address] [place] [address] Specific gravity (U) [Rel density] 1.006 Normal 1.005 - 1.035 [facility] Comment on above: Performed By: #### U A #### [facility] [address] [place] [address] Urobilinogen (U) [Mass/Vol] mg/dL Normal 0.0 - 1.9 [facility] Comment on above: Performed By: #### U A #### [facility] [address] [place] [address] Urinalysison 10-27-2022 Color (U) STRAW See Below [facility] Work Phone: Comment on above: Reference Range: STR AW,YELLOW Glucose Ql (U) 50 (TRACE) Abnormal NEGATIVE [facility] Work Phone: Ketones Ql (U) Negative NEGATIVE [facility] Work Phone: [phone] Leukocyte esterase Test strip Ql (U) Negative NEGATIVE [facility] Work Phone: pH (U) 6.0 [pH] 5.0 - 8.0 [facility] Work Phone: Protein (U) [Mass/Vol] Negative NEGATIVE [facility] Giang Work Phone: RBC (U) [#/Vol] Negative NEGATIVE [facility] ne- Wilfrid Giang Work Phone: Specific gravity (U) [Rel density] 1.006 1 See Below [facility] Wilfrid Giang Work Phone: Comment on above: Reference Range: 1.0 05 - 1.035 Urinalysis Negative NEGATIVE [facility] Work Phone: [phone] Urinalysis <2.0 0.0 - 1.9 [facility] Work Phone: Urinalysis CLEAR CLEAR -Ulices Giang Work Phone: Vancomycin Level, Randomon 0 10-27-2022 Vancomycin [Mass/Vol] 13.7 ug/mL [facility] MedicineSierra [facility] Work Phone: Comment on above: .Therapeutic Ranges: Peak: All ages: 30.0-40.0 ug/mL. Trough: Age <18y: 5.0-10.0 ug/mL. Age >/= 18y: 5.0-20.0 ug/mL. Vancomycin trough concentrations drawn immediately prior to the next dose at steady-state are preferred for monitoring patients treated with vancomycin. Ref.: Am J Health-Syst Pharm 66: 83-98, 2009. ANGIOTENSIN CONV ENZYMEon ANGIOTENSIN CONV ENZYME <10 Low 16-85 [facility] Comment on above: Result Comment: Perf ormed By: [employer] [address] [place] [address] [address]: Kyle Hyatt MD, PhD Performed By: #### U A #### [facility] [address] [place] [address] Daily Progress Note-Medicine on 10-26-2022 Daily Progress [...] diarrhea. Objective Data: Objective Information: T PRBPMAPSpO2 [id number]/9594% Date/Time10/26 3: 3: 3: 3: 3:37 Range(36.3C [...] on antibiotics. (more content not included)... Normal [facility] Daily Progress Note-Ophthalm ologyon 10-26-2022 Daily Progress Note-Ophthalmology Service: Ophthalmology Subjective Data: GRACIE BANUELOS is a 57 year old Female who is Hospital Day # 4. Objective Data: Objective Information: T PRBPMAPSpO2 [id number]/7694% Date/Time10/26 3: 12: 12: 12: 3:37 Range(36.3C [...] progressed. On 10/19/22 she presented to the [place] [facility] and CT orbits showed findings concerning for right orbital cellulitis. WBC was reportedly 13.9, ESR 75, and CRP 42.6. She was prescribed clindamycin to take at home, but her pain only worsened and she presented to [facility] on 10/20/22 for further management. [...] CT Orbit Sella Inner, by report from [employer] shows: 1. Marked abnormality of the soft [...] which I personally reviewed, by report from [employer] shows Abnormal infiltration throughout the right retroan (more content not included)... Normal [facility] RENAL FUNCTION PANELon 10-26 Albumin [Mass/Vol] 3.9 g/dL Normal 3.4 - 5.0 [facility] [place] Comment on above: Performed By: #### U A #### [facility] [address] [place] [address] Anion gap [Moles/Vol] 14 mmol/L Normal 10 - 20 [facility] Comment on above: Performed By: #### U A #### [facility] [address] [place] [address] Calcium [Mass/Vol] 9.2 mg/dL Normal 8.6 - 10.6 [facility] [place] Comment on above: Performed By: #### U A #### [facility] [address] [place] [address] Chloride [Moles/Vol] 102 mmol/L Normal 98 - 107 [facility] Comment on above: Performed By: #### U A #### [facility] [address] [place] [address] Creatinine [Mass/Vol] 1.57 mg/dL High 0.50 - 1.05 [facility] Comment on above: Performed By: #### U A #### [place] [address] [place] [address] GFR/1.73 sq M.predicted among non-blacks MDRD (S/P/Bld) [Vol rate/Area] 38 mL/min/{1.73_m2} Abnormal >90 [facility] Comment on above: Result Comment: CALC ULATIONS OF ESTIMATED GFR ARE PERFORMED USING THE 2020 CKD-EPI STUDY REFIT EQUATION WITHOUT THE RACE VARIABLE FOR THE IDMS-TRACEABLE CREATININE METHODS. https://jasn.asnjournals.org/content//ASN.84570 49454 Performed By: #### U A #### [facility] [address] [place] [address] Glucose [Mass/Vol] 124 mg/dL High 74 - 99 [facility] [place] Comment on above: Performed By: #### U A #### [facility] [address] [place] [address] HCO3 (Bld) [Moles/Vol] 24 mmol/L Normal 21 - 32 [facility] Comment on above: Performed By: #### U A #### [facility] [address] [place] [address] Phosphate [Mass/Vol] 5.3 mg/dL High 2.5 - 4.9 [facility] Comment on above: Result Comment: The performance characteristics of phosphorus testing in heparinized plasma have been validated by the individual laboratory site where testing is performed. Testing on heparinized plasma is not approved by the FDA; however, such approval is not necessary. Performed By: #### U A #### [facility] [address] [place] [address] Potassium [Moles/Vol] 4.1 mmol/L Normal 3.5 - 5.3 [facility] Comment on above: Performed By: #### U A #### [facility] [address] [place] [address] Sodium [Moles/Vol] 136 mmol/L Normal 136 - 145 [facility] [place] Comment on above: Performed By: #### U A #### [facility] [address] [place] [address] Urea nitrogen [Mass/Vol] 15 mg/dL Normal 6 - 23 [facility] Comment on above: Performed By: #### U A #### [facility] [address] [place] [address] Renal Function Panelon 10-26 Albumin BCP dye [...] 145 [facility]- Wilfrid Giang Work Phone: Urea nitrogen [Mass/Vol] 15 mg/dL 6 - 23 [facility] Wilfrid Giang Work Phone: Renal Function Panel 38 {mL/min/1.73m2} Abnormal >90 [facility]id [facility]ang Work Phone: Comment on above: CALCULATIONS OF PAVAN MATED GFR ARE PERFORMED USING THE 2020 CKD-EPI STUDY REFIT EQUATION WITHOUT THE RACE VARIABLE FOR THE IDMS-TRACEABLE CREATININE METHODS.https://jasn.asnjournals.org/content//A SN.8413698714 VANCOMYCINon 10-26-2022 VANCOMYCIN 14.6 ug/mL Normal [facility] Comment on above: Result Comment: .The rapeutic Ranges: Peak: All ages: 30.0-40.0 ug/mL . Trough: Age <18y: 5.0-10.0 ug/mL . Age >/= 18y: 5.0-20.0 ug/mL . Vancomycin trough concentrations drawn immediately prior to the next dose at steady-state are preferred for monitoring patients treated with vancomycin. Ref.: Am J Health-Syst Pharm 66: 83-98, 2009. Performed By: #### V GAVINU #### [facility] [address] [place] [address] Vancomycin Level, Randomon 0 10-26-2022 Vancomycin [Mass/Vol] [...] [Catalytic activity/Vol] U/L below low threshold 16-85 [facility] Work Phone: Comment on above: Performed By: RAJENDRA [id number] [id number] Director: Kyle Hyatt MD, PhD CBCon 10-25-2022 Erythrocyte distribution width (RBC) [Ratio] 13.3 % Normal 11.5 - 14.5 [facility] Comment on above: Performed By: #### V ANCU #### [facility] [address] [place] [address] Hematocrit (Bld) [Volume fraction] 34.5 % Low 36.0 - 46.0 [facility] Comment on above: Performed By: #### V ANCU #### [facility] [address] [place] [address] Hemoglobin (Bld) [Mass/Vol] 11.5 g/dL Low 12.0 - 16.0 [facility] Comment on above: Performed By: #### V ANCU #### [facility] [address] [place] [address] MCHC (RBC) [Mass/Vol] 33.3 g/dL Normal 32.0 - 36.0 [facility] Comment on above: Performed By: #### V ANCU #### [facility] [address] [place] [address] MCV (RBC) [Entitic vol] 82 fL Normal 80 - 100 [facility] Comment on above: Performed By: #### V ANCU #### [facility] [address] [place] [address] NUCLEATED RBC 0.0 /100 WBC Normal 0.0-0.0 [facility] Comment on above: Performed By: #### V ANCU #### [place] [address] [place] [address] Platelets (Bld) [#/Vol] 306 10*3/uL Normal 150 - 450 [facility] Comment on above: Performed By: #### V ANCU #### [facility] [address] [place] [address] RBC 4.23 x10E12/L Normal 4.00 - 5.20 [facility] Comment on above: Performed By: #### V ANCU #### [place] [address] [place] [address] WBC (Bld) [#/Vol] 10.1 10*3/uL Normal 4.4 - 11.3 [facility] Comment on above: Performed By: #### V ANCU #### [facility] [address] [place] [address] Daily Progress Note-Medicine on 10-25-2022 Daily Progress Note-Medicine Service: Medicine Subjective Data: GRACIE BANUELOS is a 57 year old Female who is Hospital Day # 3. No overnight events. Pt states the swelling in her right eye is better. She endorses at least 3 episodes of diarrhea a day since she came here. Objective Data: Objective Information: T PRBPMAPSpO2 [id number]/6893% Date/Time10/25 6: 6: 6: 6: 6:08 Range(36C [...] that it started the day she left [facility]. C. diff work up at [facility] came back negative - Likely due to Abx - Started on Immodium as needed - Will consider C diff PC (more content not included)... Normal [facility] Daily Progress Note-Ophthalm ologyon 10-25-2022 Daily Progress Note-Ophthalmology Service: Ophthalmology Subjective Data: GRACIE BANUELOS is a 57 year old Female who is Hospital Day # 3. Objective Data: Objective Information: T PRBPMAPSpO2 [id number]/6893% Date/Time10/25 6: 6: 6: 6: 6:08 Range(36C [...] progressed. On 10/19/22 she presented to the [place] [facility] Department and CT orbits showed findings concerning for right orbital cellulitis. WBC was reportedly 13.9, ESR 75, and CRP 42.6. She was prescribed clindamycin to take at home, but her pain only worsened and she presented to [facility] on 10/20/22 for further management. [...] CT Orbit Sella Inner, by report from [employer] shows: 1. Marked abnormality of the soft [...] which I personally reviewed, by report from [employer] shows Abnormal infiltration throughout the right retroantral and extraconal fat as well as the pterygopalatine fo (more content not included)... Normal [facility] Laboratory - Hematology and Cell countson 10-25-2022 Erythrocyte distribution width (RBC) [Ratio] 13.3 % See Below [employer] Work Phone: Comment on above: Reference Range: 11. 5 - 14.5 Hematocrit (Bld) [Volume fraction] 34.5 % below low threshold See Below [employer] Work Phone: Comment on above: Reference Range: 36. 0 - 46.0 Hemoglobin (Bld) [Mass/Vol] 11.5 g/dL below low threshold See Below [employer] Work Phone: Comment on above: Reference Range: 12. 0 - 16.0 MCHC (RBC) [Mass/Vol] 33.3 g/dL See Below [employer] Work Phone: Comment on above: Reference Range: 32. 0 - 36.0 MCV (RBC) [Entitic vol] 82 fL 80 - 100 [facility] Wilfrid Rahat Work Phone: Platelets (Bld) [#/Vol] 306 10*3/uL 150 - 450 [facility]fr[facility] Rahat Work Phone: RBC (Bld) [#/Vol] 4.23 {x10E12/L} See Below [facility] Wilfrid Rahat Work Phone: Comment on above: Reference Range: 4.0 0 - 5.20 WBC (Bld) [#/Vol] 10.1 10*3/uL 4.4 - 11.3 [facility]- Wilfrid Rahat Work Phone: Laboratory - Microbiology an d Antimicrobial susceptibilityOrdered By: Dr. Dykes on 10-25-2022 Bacteria identified Cx Nom (Bld) No growth in 5 days. [facility] Lysozyme, Serumon 10-25-2022 Lysozyme [Mass/Vol] 9.0 ug/mL 2.5-12.9 [facility]- Wilfrid Rahat Work Phone: Comment on above: Effective November [...] 10-25 0.0 {/100_WBC} 0.0-0.0 [facility]- Wilfrid Rahat Work Phone: RENAL FUNCTION PANELon 10-25 Albumin [Mass/Vol] 3.3 g/dL Low 3.4 - 5.0 [facility] [place] Comment on above: Performed By: #### U A #### [facility] [address] [place] [place] [address] Anion gap [Moles/Vol] 13 mmol/L Normal 10 - 20 [facility] Comment on above: Performed By: #### U A #### [facility] [address] [place] [address] Calcium [Mass/Vol] 9.0 mg/dL Normal 8.6 - 10.6 [facility] [place] Comment on above: Performed By: #### U A #### [place] [address] [place] [address] Chloride [Moles/Vol] 101 mmol/L Normal 98 - 107 [facility] Comment on above: Performed By: #### U A #### [facility] [address] [place] [address] Creatinine [Mass/Vol] 1.09 mg/dL High 0.50 - 1.05 [facility] Comment on above: Performed By: #### U A #### [facility] [address] [place] [address] GFR/1.73 sq M.predicted among non-blacks MDRD (S/P/Bld) [Vol rate/Area] 58 mL/min/{1.73_m2} Abnormal >90 [facility] Comment on above: Result Comment: CALC ULATIONS OF ESTIMATED GFR ARE PERFORMED USING THE 2020 CKD-EPI STUDY REFIT EQUATION WITHOUT THE RACE VARIABLE FOR THE IDMS-TRACEABLE CREATININE METHODS. https://jasn.asnjournals.org/content//ASN.66102 02629 Performed By: #### U A #### [facility] [address] [place] [address] Glucose [Mass/Vol] 104 mg/dL High 74 - 99 [facility] [place] Comment on above: Performed By: #### U A #### [facility] [address] [place] [address] HCO3 (Bld) [Moles/Vol] 25 mmol/L Normal 21 - 32 [facility] Comment on above: Performed By: #### U A #### [facility] [address] [place] [address] Phosphate [Mass/Vol] 4.3 mg/dL Normal 2.5 - 4.9 [facility] Comment on above: Result Comment: The performance characteristics of phosphorus testing in heparinized plasma have been validated by the individual laboratory site where testing is performed. Testing on heparinized plasma is not approved by the FDA; however, such approval is not necessary. Performed By: #### U A #### [facility] [address] [place] [address] Potassium [Moles/Vol] 3.7 mmol/L Normal 3.5 - 5.3 [facility] Comment on above: Performed By: #### U A #### [facility] [address] [place] [address] Sodium [Moles/Vol] 135 mmol/L Low 136 - 145 [facility] [place] Comment on above: Performed By: #### U A #### [facility] [address] [place] [address] Urea nitrogen [Mass/Vol] 10 mg/dL Normal 6 - 23 [facility] Comment on above: Performed By: #### U A #### [facility] [address] [place] [address] RPR WITH TITER SYPHILIS ESTELLA TORINGon 10-25-2022 RPR MONITORING Canceled Normal [facility] Comment on above: Order Comment: TEST RPR WITH TITER SYPHILIS MONITORING WAS CANCELLED, 10/25/2022 00:46 RBS update.. Performed By: #### R PRSM #### [facility] [address] [place] [address] Lab Specimen Source Normal [facility] Comment on above: Order Comment: TEST RPR WITH TITER SYPHILIS MONITORING WAS CANCELLED, 10/25/2022 00:46 RBS update.. Performed By: #### R PRSM #### [facility] [address] [place] [address] Renal Function Panelon 10-25 Albumin BCP dye [Mass/Vol] 3.3 g/dL below low threshold 3.4 - 5.0 [facility] Work Phone: Anion gap [Moles/Vol] 13 mmol/L 10 - 20 [facility] Work Phone: [phone] Calcium [Mass/Vol] 9.0 mg/dL 8.6 - 10.6 [facility] icineSierra [facility]ang Work Phone: [phone] Chloride [Moles/Vol] 101 mmol/L 98 - 107 [facility] edrigoberto [facility] Work Phone: [phone] CO2 [Moles/Vol] 25 mmol/L 21 - 32 [facility] neSierra Giang Work Phone: [phone] Creatinine [Mass/Vol] 1.09 mg/dL above high threshold See Below [facility] Work Phone: [phone] Comment on above: Reference Range: 0.5 0 - 1.05 Glucose [Mass/Vol] 104 mg/dL above high threshold 74 - 99 [facility] Work Phone: Phosphate [Mass/Vol] 4.3 mg/dL 2.5 - 4.9 [facility] mack [facility] Work Phone: [phone] Comment on above: The performance bruce acteristics of phosphorus testing in heparinized plasma have been validated by the individual laboratory site where testing is performed. Testing on heparinized plasma is not approved by the FDA; however, such approval is not necessary. Potassium [Moles/Vol] 3.7 mmol/L 3.5 - 5.3 [facility] Work Phone: Sodium [Moles/Vol] 135 mmol/L below low threshold 136 - 145 [facility] Work Phone: [phone] Urea nitrogen [Mass/Vol] 10 mg/dL 6 - 23 [facility] Work Phone: [phone] Renal Function Panel 58 {mL/min/1.73m2} Abnormal >90 [facility] Work Phone: Comment on above: CALCULATIONS OF PAVAN MATED GFR ARE PERFORMED USING THE 2020 CKD-EPI STUDY REFIT EQUATION WITHOUT THE RACE VARIABLE FOR THE IDMS-TRACEABLE CREATININE METHODS.https://jasn.asnjournals.org/content/early//A SN.6461830403 SYPHILIS SCREENING WITH REFL EXon 10-25-2022 SYPHILIS TOTAL AB Non-Reactive Normal NONREACTIVE [facility] Comment on above: Result Comment: No s ignificant level of Treponema pallidum antibody detected. 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 Performed By: #### U A #### [facility] [address] [place] [address] Lab Specimen Source Normal [facility] Comment on above: Performed By: #### U A #### [facility] [address] [place] [address] T. pallidum IgG+IgM IA Ql (S) Non-Reactive See Below [employer] Work Phone: Comment on above: SOURCE: Reference Ra nge: NONREACTIVENo significant level of Treponema pallidum antibody detected. 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 VANCOMYCIN,TROUGHon 10-25-19 23 VANCOMYCIN,TROUGH 27.0 ug/mL Critically high 5.0 - 20.0 [facility] Comment on above: Order Comment: VANCT CALLED TO BRANDIRODRIGUE WAGONER, 10/25/2022 17:09 Result Comment: Vanc omycin [...] WAGONER, 10/25/2022 17:09 Performed By: #### A [facility] #### [facility] [address] [place] [address] Vancomycin Level, Troughon 0 10-25-2022 Vancomycin trough [Mass/Vol] 27.0 ug/mL Critically high 5.0 - 20.0 [employer] Work Phone: Comment on above: Vancomycin levels [...] AlertFor Ebola-like Symptoms: Isolate Patient and Notify Provider/Nurses' Registry Director For Contact: Notify Provider/Nurses' Registry Director Advance Directive: Advance Directive/DNRno Advance Directive Information [...] video; verbal instruction Cultural Considerationsnone Developmental Considerationsnone Protestant Considerationsnone Learning Assessment (Other Learner): Other learner availableno Depression Screen: During the past month, have you often been bothered by feeling down, depressed or hopelessno During the past month, have you often had little interest or pleasure in doing thingsno Have you had any thoughts of harming anyone elseno [place] Suicide: Risk Screen Not Applicable/Able to Answerable to be screened In the Past Month: Have you wished you were or could go to sleep and not wake upno In the Past Month: Have you had any actual thoughts of killing yourselfno Lifetime: Have you ever done, started to do, or prepared to do anything to end your lifeno [place] Suicide Risknegative Adult Nutrition Screen: Have you [...] Spiritual Screen: Are there any cultural, spiritual, buddhist practices/values/needs that are important for us to knowno CAGE: Is this an inju (more content not included)... Normal [facility] C Reactive Protein, Serumon 10-24-2022 CRP [Mass/Vol] 6.50 mg/dL Abnormal [facility]- Wilfrid Giang Work Phone: Comment on above: REF VALUE< 1.00 C-REACTIVE PROTEINon 023 C-REACTIVE PROTEIN 6.50 mg/dL Abnormal [facility] [place] Comment on above: Result Comment: REF VALUE < 1.00 Performed By: #### U A #### [facility] [address] [place] [address] CBC AND DIFFERENTIALon 10-24 % AUTOMATED IMMATURE GRAN 0.5 % Normal 0.0 - 0.9 [facility] Comment on above: Result Comment: Iram ture Granulocyte Count (IG) includes promyelocytes, myelocytes and metamyelocytes but does not include bands. Percent differential counts (%) should be interpreted in the context of the absolute cell counts (cells/L). Performed By: #### C BCDF #### [facility] [address] [place] [address] Basophils (Bld) [#/Vol] 0.11 10*3/uL High 0.00 - 0.10 [facility] Comment on above: Performed By: #### C BCDF #### [facility] [address] [place] [address] Basophils/100 WBC (Bld) 1.1 % Normal 0.0 - 2.0 [facility] Comment on above: Performed By: #### C BCDF #### [facility] [address] [place] [address] Eosinophils (Bld) [#/Vol] 0.75 10*3/uL High 0.00 - 0.70 [facility] Comment on above: Performed By: #### C BCDF #### [facility] [address] [place] [address] Eosinophils/100 WBC (Bld) 7.2 % Normal 0.0 - 6.0 [facility] Comment on above: Performed By: #### C BCDF #### [facility] [address] [place] [address] Erythrocyte distribution width (RBC) [Ratio] 13.4 % Normal 11.5 - 14.5 [facility] Comment on above: Performed By: #### C BCDF #### [facility] [address] [place] [address] Hematocrit (Bld) [Volume fraction] 34.0 % Low 36.0 - 46.0 [facility] Comment on above: Performed By: #### C BCDF #### [facility] [address] [place] [address] Hemoglobin (Bld) [Mass/Vol] 11.4 g/dL Low 12.0 - 16.0 [facility] [facility] Comment on above: Performed By: #### C BCDF #### [facility] [address] [place] [address] Lymphocytes (Bld) [#/Vol] 1.67 10*3/uL Normal 1.20 - 4.80 [facility] Comment on above: Performed By: #### C BCDF #### [facility] [address] [place] [address] Lymphocytes/100 WBC (Bld) 16.0 % Normal 13.0 - 44.0 [facility] Comment on above: Performed By: #### C BCDF #### [facility] [address] [place] [address] MCHC (RBC) [Mass/Vol] 33.5 g/dL Normal 32.0 - 36.0 [facility] Comment on above: Performed By: #### C BCDF #### [facility] [address] [place] [address] MCV (RBC) [Entitic vol] 82 fL Normal 80 - 100 [facility] Comment on above: Performed By: #### C BCDF #### [facility] [address] [place] [address] Monocytes (Bld) [#/Vol] 1.19 10*3/uL High 0.10 - 1.00 [facility] Comment on above: Performed By: #### C BCDF #### [facility] [address] [place] [address] Monocytes/100 WBC (Bld) 11.4 % Normal 2.0 - 10.0 [facility] Comment on above: Performed By: #### C BCDF #### [facility] [address] [place] [address] Neutrophils (Bld) [#/Vol] 6.68 10*3/uL Normal 1.20 - 7.70 [facility] Comment on above: Performed By: #### C BCDF #### [facility] [address] [place] [address] Neutrophils/100 WBC (Bld) 63.8 % Normal 40.0 - 80.0 [facility] Comment on above: Performed By: #### C BCDF #### [facility] [address] [place] [address] NUCLEATED RBC 0.0 /100 WBC Normal 0.0-0.0 [facility] Comment on above: Performed By: #### C BCDF #### [facility] [address] [place] [address] Platelets (Bld) [#/Vol] 322 10*3/uL Normal 150 - 450 [facility] Comment on above: Performed By: #### C BCDF #### [facility] [address] [place] [address] RBC 4.16 x10E12/L Normal 4.00 - 5.20 [facility] Comment on above: Performed By: #### C BCDF #### [facility] [address] [place] [address] WBC (Bld) [#/Vol] 10.5 10*3/uL Normal 4.4 - 11.3 [facility] Comment on above: Performed By: #### C BCDF #### [facility] [address] [place] [address] COMPREHENSIVE PANELon 2022 Albumin [Mass/Vol] 3.6 g/dL Normal 3.4 - 5.0 [facility] [place] Comment on above: Performed By: #### C MP #### [facility] [address] [place] [address] ALP [Catalytic activity/Vol] 107 U/L Normal 33 - 110 [facility] Comment on above: Performed By: #### C MP #### [facility] [address] [place] [address] ALT [Catalytic activity/Vol] 23 U/L Normal 7 - 45 [facility] Comment on above: Result Comment: Gretta ents treated with Sulfasalazine may generate falsely decreased results for ALT. Performed By: #### C MP #### [facility] [address] [place] [address] Anion gap [Moles/Vol] 15 mmol/L Normal 10 - 20 [facility] Comment on above: Performed By: #### C MP #### [facility] [address] [place] [address] AST [Catalytic activity/Vol] 26 U/L Normal 9 - 39 [facility] Comment on above: Performed By: #### C MP #### [facility] [address] [place] [address] Bilirubin [Mass/Vol] 0.3 mg/dL Normal 0.0 - 1.2 [facility] Comment on above: Performed By: #### C MP #### [facility] [address] [place] [address] Calcium [Mass/Vol] 9.2 mg/dL Normal 8.6 - 10.6 [facility] [place] Comment on above: Performed By: #### C MP #### [facility] [address] [place] [address] Chloride [Moles/Vol] 103 mmol/L Normal 98 - 107 [facility] Comment on above: Performed By: #### C MP #### [facility] [address] [place] [address] Creatinine [Mass/Vol] 0.92 mg/dL Normal 0.50 - 1.05 [facility] Comment on above: Performed By: #### C MP #### [facility] [address] [place] [address] GFR/1.73 sq M.predicted among non-blacks MDRD (S/P/Bld) [Vol rate/Area] 72 mL/min/{1.73_m2} Normal >90 [facility] Comment on above: Result Comment: CALC ULATIONS OF ESTIMATED GFR ARE PERFORMED USING THE 2020 CKD-EPI STUDY REFIT EQUATION WITHOUT THE RACE VARIABLE FOR THE IDMS-TRACEABLE CREATININE METHODS. https://jasn.asnjournals.org/content/early//ASN.73905 49493 Performed By: #### C MP #### [facility] [address] [place] [address] Glucose [Mass/Vol] 95 mg/dL Normal 74 - 99 [facility] [place] Comment on above: Performed By: #### C MP #### [facility] [address] [place] [address] HCO3 (Bld) [Moles/Vol] 25 mmol/L Normal 21 - 32 [facility] Comment on above: Performed By: #### C MP #### [facility] [address] [place] [address] Potassium [Moles/Vol] 4.1 mmol/L Normal 3.5 - 5.3 [facility] Comment on above: Performed By: #### C MP #### [facility] [address] [place] [address] Protein [Mass/Vol] 6.4 g/dL Normal 6.4 - 8.2 [facility] [place] Comment on above: Performed By: #### C MP #### [facility] [address] [place] [address] Sodium [Moles/Vol] 139 mmol/L Normal 136 - 145 [facility] [place] Comment on above: Performed By: #### C MP #### [facility] [address] [place] [address] Urea nitrogen [Mass/Vol] 9 mg/dL Normal 6 - 23 [facility] Comment on above: Performed By: #### C MP #### [facility] [address] [place] [address] Clinical Event Note-AH@H Scr eenon 10-24-2022 Clinical Event Note-AH@H Screen Clinical Event: Clinical Event Note: TopicAH@H Screen Details Patient was referred to AH@H program. Upon review with Provider and/or Social Assessment patient does not qualify for the program due to pt declined. Vicki Varela RNcar sweeper Coordinator Electronic Signatures: Vicki Varela (CLIN COOR) (Signed 24-Oct-2022 15:07) Authored: Clinical Event Note Last Updated: 24-Oct-2022 15:07 by Vicki Varela (CLIN COOR) Normal [facility] Clinical Note - Pharmacy v2- Medication Educationon 10-24-2022 Clinical Note - Pharmacy v2-Medication Education Clinical Note - Pharmacy v2: Discharge Meds: Prescription Handkerchief Presser Medications Home Medications Review Status for Reconciliation: Complete Med Status: Patient Currently Takes Medications Education: Document TopicMedication Education MedicationMeds to Beds: Patient declines Meds to Beds service at discharge. Sources used to confirm home medication list: Patient interview/ HIE [facility] 10/20/2022 Additional comments: Patient was recently discharged from [facility] on 10/23/2022. Creon dosage was confirmed with patient of 24,000 units 1 capsule 3 times a day with meals. Medication reconciliation complete Please reach out via Exabre for questions Brandi Lr, ShondaD, Meds Meds Ambulatory and Retail Services Is This Intervention Medication Reconciliation Relatedyes Time [id number] - 60 minutes Additional NotesDrug Name: mirtazapine [...] Discharge Meds, Education, Allergy Constance Buckley (FORMERLY [facility]) (Signed 27-Oct-2022 09:36) Co-Signer: Discharge Meds, Education, Allergy Last Updated: 27-Oct-2022 09:36 by Constance Buckley (FORMERLY [facility]) Normal [facility] Complete Blood Count + Diffe suhason 10-24-2022 Basophils/100 WBC (Bld) 1.1 % 0.0 - 2.0 [facility] Work Phone: Erythrocyte distribution width (RBC) [Ratio] 13.4 % See Below [facility] Work Phone: Comment on above: Reference Range: 11. 5 - 14.5 Hematocrit (Bld) [Volume fraction] 34.0 % below low threshold See Below [facility] Work Phone: Comment on above: Reference Range: 36. 0 - 46.0 Hemoglobin (Bld) [Mass/Vol] 11.4 g/dL below low threshold See Below [facility] Work Phone: Comment on above: Reference Range: 12. 0 - 16.0 Lymphocytes/100 WBC (Bld) 16.0 % See Below [facility]edicineLeap In EntertainmentWilfridElastar [facility] Work Phone: Comment on above: Reference Range: 13. 0 - 44.0 MCHC (RBC) [Mass/Vol] 33.5 g/dL See Below [facility] Ulices [facility]ang Work Phone: Comment on above: Reference Range: 32. 0 - 36.0 MCV (RBC) [Entitic vol] 82 fL 80 - 100 -Ulices Giang Work Phone: [phone] Monocytes/100 WBC (Bld) 11.4 % 2.0 - 10.0 Jerod Giang Work Phone: [phone] Neutrophils/100 WBC (Bld) 63.8 % See Below Jerod Giang Work Phone: [phone] Comment on above: Reference Range: 40. 0 - 80.0 Platelets (Bld) [#/Vol] 322 10*3/uL 150 - 450 [facility] Work Phone: [phone] RBC (Bld) [#/Vol] 4.16 {x10E12/L} See Below [facility] Nathalie Giang Work Phone: [phone] Comment on above: Reference Range: 4.0 0 - 5.20 WBC (Bld) [#/Vol] 10.5 10*3/uL 4.4 - 11.3 -Ut dicineSierra Giang Work Phone: Complete Blood Count + Differential 0.11 {x10E9/L} above high threshold See Below MGNathalie Giang Work Phone: Comment on above: Reference Range: 0.0 0 - 0.10 Complete Blood Count + Differential 0.75 {x10E9/L} above high threshold See Below [facility]Ulices [facility] Work Phone: [phone] Comment on above: Reference Range: 0.0 0 - 0.70 Complete Blood Count + Differential 1.19 {x10E9/L} above high threshold See Below [facility] Work Phone: [phone] Comment on above: Reference Range: 0.1 0 - 1.00 Complete Blood Count + Differential 1.67 {x10E9/L} See Below -Ulices Giang Work Phone: [phone] Comment on above: Reference Range: 1.2 0 - 4.80 Complete Blood Count + Differential 6.68 {x10E9/L} See Below [facility]ENEOncoFusion TherapeuticsSierra Yuen Giang Work Phone: Comment on above: Reference Range: 1.2 0 - 7.70 Complete Blood Count + Differential 7.2 % 0.0 - 6.0 [facility] Wilfrid Giang Work Phone: Complete Blood Count + Differential 0.5 % 0.0 - 0.9 [facility] Work Phone: Comment on above: Immature Granulocyte Count (IG) includes promyelocytes, myelocytes and metamyelocytes but does not include bands. Percent differential counts (%) should be interpreted in the context of the absolute cell counts (cells/L). Complete Blood Count + Differential 0.0 {/100_WBC} 0.0-0.0 [facility] Work Phone: Consult-ENTon 10-24-2022 Consult-ENT Service: Service: ENT Consult: Consult requested by (Attending Name): Tai Peoples Reason: 57 yo female coming [facility] as a transfer from [facility] for R eye evaluation for a cut-down biopsy of diffuse inflitration from the orbit into surroiunding tissue. Pt had an extensive work up at [facility] and [place] and rheumatologic or [...] imaging. Pt noted to originally present to [facility] for 1 month of worseninig right eye pain/right headache/episodes of blurry and double vision without other symptoms. Denies eye trauma. Denies similar prior episodes. Denies nasal congestion/drainage. No inciting event. No relief with outpt antibiotics. At [facility] some improvement noted with antibiotics. Rheum c/s determined no rheum cause. Has not tried steroids yet. ENT at [facility] determined no need for biopsy at [...] a 57 year old female transferred from [facility] for evaluation by oculoplastics here for biopsy [...] Fortino Mathews DO, PGY2 Adult Service Pager: [phone] Peds Service Pager: [phone] [phone]. Review Family/Social History and ROS: Social History: Smoking Status: unable to assess (1) Alcohol Use: denies(1) Drug Use: denies (1) Allergies: penicillin: Hives/Urticaria Consult Status: Consult Order ID: [id number] Attestation: Note Completion: I am a: Resident/Fellow [...] the note. I personally evaluated the patient [id number] Electronic Signatures: Fortino Mathews ( (R (more content not included)... Normal [facility] Consult-Infectious Diseaseon 10-24-2022 Consult-Infectious Disease Service: Service: Infectious Disease Consult: Consult requested by (Attending Name): Tai Peoples Reason: 57 year old woman who is presenting as a transfer to [facility] from [facility] for further management of preseptal cellulitis vs. infiltrative process of her right eye seen on MRI orbit. ID at [facility] recommended Vanc/zosyn History of Present Illness: HPI: GRACIE BANUELOS is a 57 year old woman pmhx sig for COPD, HTN, transferred from [facility] on 10/23 for inflammatory eye disease/possible preseptal cellulitis. HPI per notes and pt. Pt reports ~1 mos R eye redness, swelling and pain. Was treated by outpt eye doctor w/ azithromycin x 5 days on 10/17. Presented to [facility]. Given 1 dose clindamycin and transferred to [facility]. Admits to having fever and chills prior to [facility] admission, but describes them as [...] candles. Never had this before. 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 Normal [facility] Consult-Ophthalmologyon 09-29 Consult-Ophthalmology Service: Service: Ophthalmology Consult: Consult requested by (Attending Name): Tai Peoples Reason: 57 yo female coming as a transfer from [facility] for R eye evaluation for oculoplastic need for a cut-down biopsy of diffuse inflitration from the orbit into surroiunding tissue. Pt had an extensive work up at [facility] and [place] and rheumatologic or infectious causes were ruled [...] progressed. On 10/19/22 she presented to the [place] Emergency Department and CT orbits showed findings concerning for right orbital cellulitis. WBC was reportedly 13.9, ESR 75, and CRP 42.6. She was prescribed clindamycin to take at home, but her pain only worsened and she presented to [facility] on 10/20/22 for further management. [...] CT Orbit Sella Inner, by report from [employer] shows: 1. Marked abnormality of the soft [...] which I personally reviewed, by report from [employer] shows Abnormal infiltration throughout the right retroantral and extraconal fat as well as the pterygopalatine fossa and diffusely throughout the right graduate intern space with asymmetry of the muscles of mastication. Additional mild enlargement of the right inferior and lateral rectus. These findings are highly concerning for invasive fungal sinusitis until proven otherwise. Mild as (more content not included)... Normal [facility] Discharge Planning [id number] 0 10-24-2022 Discharge Planning Note2 Discharge Planning: Needs Prior to Discharge (ex. Home Care Orders, IV/O2 prescriptions) f/u appts Discharge Barriersnone Planned Dispositionhome Discharge DestinationHome with family vs HC if IV abx needed AMPAC < 20no Anticipated Discharge [id number] Discharge Planning 10/23/22-Admission [id number] arrived to unit from [facility] via stretcher per community care [...] Await ID reccs; opthalmology on board. Payer: [facility] Status: inpatient Discharge disposition: HC RN if IV abx needed. Potential Barriers: none ADOD: 10/29 Vicki Varela RNcar sweeper Coordinator Assessment: Discharge Planning Assessment Discharge Planning Assessment Completed byVicki Varela RNcar sweeper Coordinator Primary Contact Name and NumberTina Augustine (sister)-[phone] Prior Level of Functioningind with ADLS Lives Withadult child(rama); dependent child(rama); daughter and granddaughter Living Arrangementshouse PCPJoy Older [facility] [place] Recent Falls/ Injury/ Need Assist with Ambulationdenies Equipment Currently Used at [facility] DME Supplier Name/Numbern/a Home Care Agency/Support Servicesn/a Diabetic/Supplies Neededn/a Hemodialysis Schedulen/a [facility] Antic[facility]ated at Transitionnone PCP Last Date Seencouple months ago InsuranceCaresource Equipment Needed After Dischargenone Anticipated Discharge Facility/Level of Care Needs.Home Discharge Planning CommentsPt has transportation to medical appointments, feels safe at home. Address, phone and emergency contact information verified. All questions and concerns answered. Will continue to follow for discharge needs. Vicki Varela RNcar sweeper Coordinator Social Determinants of Health Identifiedpast hx [...] 13:57 by Vicki Varela (CLIN COOR) Normal [facility] Discharge [id number] Discharge Profile2 Discharge Orders: Anticipated Discharge Date: Anticipated Discharge [id number] DNAR: Code Status at Discharge: Full Code Activity: activity as tolerated. Diet: Dietregular Labs 1: Lab Test(s)RFP Date To Be Drawn10/30/22 Call Results ToSoila Easton CNP or Fax Results [phone] CommentsPCP consider monitoring improvement of CHUY upon recent hospital admission Oxygen: Administer oxygen at 2 liters/min via nasal cannula to maintain SpO2 % of 88-92 with activity. Additional Orders: Additional Instructions Dear Ms. Banuelos, You presented to us as transfer from [facility] for a possible biopsy of the right [...] vs. infiltrative mass. Vanc/zosyn were started at [facility]. Oculoplastic were consulted and there [...] for ReferralEstablish with Primary Care Provider Scheduled Date/[id number] 16:[address], [address] [place] [address] fax Phone [phone] CommentsPlease bring your insurance card, photo id, a list of medication in the original bottle, any co-pays you may have, and the discharge summary Follow-Up Appointment 02: Physician/Dept/YaelOp hthalmology: Dr Ortega Scheduled Date/[id number] 15:30 [facility] [address] , [address] [facility] [address] CommentsPlease bring your insurance card, photo id, a list of medication in the original bottle, any co-pays you may have, and the discharge summary Follow-Up Appointment 03: Physician/Dept/ServiceCathryn Easton CNP Call to Schedule inPatient is to call upon discharge and schedule follow up for Thursday10/31/[address] [place] [address] or Electronic Signatures: Annie Escobedo (PT ACC REP) (Signed 28-Oct-2022 09:45) Authored: Discharge Orders, Appointments Justyn Richter ( (Resident)) (Signed 29-Oct-2022 11:30) Authored: Discharge Orders, Hospital Course (Home Care/Gold Form), Provider FINAL REVIEW of Orders Katina Booker (SALES MARKETING-COMPANY MARKER) (Signed 28-Oct-2022 09:22) Authored: Discharge Orders, Provider FINAL REVIEW of Orders, Gold Form - Field Service Rep Summary Donn Trammell ( (Resident)) (Signed 29-Oct-2022 12:36) Authored: Discharge Orders, Hospital Course (Home Care/Gold Form), Provider FINAL REVIEW of Orders, Appointments Last Updated: 29-Oct-2022 12:36 by Donn Trammell ( (Resident)) Normal [facility] Electrocardiogram 12 Leadon 10-24-2022 Electrocardiogram 12 Lead Ventricular Rate 82 Atrial Rate 82 P-R Interval 168 QRS Duration 74 Q-T Interval 394 QTC Calculation(Bazett) 460 P [place] 50 R [place] 76 T [place] 79 QRS Count 14 Q Onset 233 P Onset 149 P Offset 196 T Offset 430 QTC Fredericia 437 Diagnosis Class Abnormal Diagnosis Normal sinus rhythm Anterior infarct , age undetermined Abnormal ECG No previous ECGs available Confirmed by Dinesh Najera ([id number]) on 10/24/2022 11:13:15 AM Normal [facility] Laboratory - Chemistry and C hemistry - challengeon 10-24-2022 Albumin BCP dye [Mass/Vol] 3.6 g/dL 3.4 - 5.0 [facility] [employer] Work Phone: ALP [Catalytic activity/Vol] 107 U/L 33 - 110 [facility] Work Phone: ALT With P-5'-P [Catalytic activity/Vol] 23 U/L 7 - 45 [facility]MedicineSierra Giang Work Phone: [phone] Comment on above: Patients treated wit h Sulfasalazine may generate falsely decreased results for ALT. Anion gap [Moles/Vol] 15 mmol/L 10 - 20 [facility] MedicineSierra [facility] Work Phone: [phone] AST With P-5'-P [Catalytic activity/Vol] 26 U/L 9 - 39 [facility] Work Phone: [phone] Bilirubin [Mass/Vol] 0.3 mg/dL 0.0 - 1.2 [facility] johanny Wilfrid Giang Work Phone: [phone] Calcium [Mass/Vol] 9.2 mg/dL 8.6 - 10.6 [facility] rigoberto Yuen Giang Work Phone: [phone] Chloride [Moles/Vol] 103 mmol/L 98 - 107 [facility] mack Giang Work Phone: [phone] CO2 [Moles/Vol] 25 mmol/L 21 - 32 [facility] Wilfrid Giang Work Phone: [phone] Creatinine [Mass/Vol] 0.92 mg/dL See Below [facility] Ulices Giang Work Phone: [phone] Comment on above: Reference Range: 0.5 0 - 1.05 Glucose [Mass/Vol] 95 mg/dL 74 - 99 [facility] rigoberto Giang Work Phone: [phone] Potassium [Moles/Vol] 4.1 mmol/L 3.5 - 5.3 [facility] Ulices Yuen [facility] Work Phone: [phone] Protein [Mass/Vol] 6.4 g/dL 6.4 - 8.2 [facility] rigoberto Yuen Giang Work Phone: [phone] Sodium [Moles/Vol] 139 mmol/L 136 - 145 [facility] rigoberto Yuen Giang Work Phone: [phone] Urea nitrogen [Mass/Vol] 9 mg/dL 6 - 23 [facility]MedicineSierra Yuen [facility] Work Phone: [phone] MAGNESIUMon 10-24-2022 Magnesium [Mass/Vol] 1.75 mg/dL Normal 1.60 - 2.40 [facility] Comment on above: Performed By: #### V ANCU #### [facility] [address] [place] [address] Magnesium, Serumon Magnesium [Mass/Vol] 1.75 mg/dL See Below [facility]- Wilfrid Giang Work Phone: [phone] Comment on above: Reference Range: 1.6 0 - 2.40 No Panel Informationon 10-24 72 {mL/min/1.73m2} >90 [facility] icine- Wilfrid Giang Work Phone: [phone] Comment on above: CALCULATIONS OF PAVAN MATED GFR ARE PERFORMED USING THE 2020 CKD-EPI STUDY REFIT EQUATION WITHOUT THE RACE VARIABLE FOR THE IDMS-TRACEABLE CREATININE METHODS.https://jasn.asnjournals.org/content//A SN.9939399155 https://MUSEXPRDWE B01: 8080/musescripts/museweb .dll?RetrieveTestByDateT ryan?EwigvdpYO=[id number]& Date=24-10-2022&Time=06% 3a25%3a35%3a00&TestType= ECG&Site=1&OutputType=PD F&Ext=PDF [facility] Wilfrid [facility] Work Phone: [phone] Normal sinus rhythm [facility] d[facility]- Wilfrid Giang Work Phone: [phone] Abnormal [facility] Wilfridjodi Giang Work Phone: [phone] [facility] Wilfrid [facility] Work Phone: [phone] 1 [facility] Wilfrid Rahat Work Phone: [phone] [facility] Wilfrid Rahat Work Phone: [phone] [facility] Wilfrid [facility] Work Phone: [phone] [facility] Wilfrid Rahat Work Phone: [phone] [facility] Wilfrid [facility]ang Work Phone: [...] (Advanced Practice Nurse-Admit) done by Katina Booker ([facility]) Discharge - Partial Reconciliation: 24-Oct-2022 08:06 by: Katina Booker ([facility]) Discharge - Partial Reconciliation: 27-Oct-2022 06:53 by: Katina Booker ([facility]) Discharge - Partial Reconciliation: 27-Oct-2022 07:55 by: Katina Booker ([facility]) Discharge - Partial Reconciliation: 27-Oct-2022 13:27 by: Katina Booker ([facility]) Discharge - Partial Reconciliation: 28-Oct-2022 07:04 by: Katina Booker ([facility]) Discharge - Reconciliation: 28-Oct-2022 07:09 by: Katina Booker ([facility]) Discharge - Reset to Incomplete: 28-Oct-2022 07:11 by: Katina Booker ([facility]) Discharge - Reconciliation: 28-Oct-2022 07:11 by: Katina Booker ([facility]) Discharge - Reset to Incomplete: 28-Oct-2022 09:07 by: Katina Booker ([facility]) Discharge - Partial Reconciliation: 28-Oct-2022 09:08 by: Katina Booker ([facility]) Discharge - Reconciliation: 28-Oct-2022 09:08 by: Katina Booker ([facility]) Discharge - Reset to Incomplete: 28-Oct-2022 09:09 by: Katina Booker ([facility]) Discharge - Reconciliation: 28-Oct-2022 09:16 by: Katina Booker ([facility]) Discharge - Reset to Incomplete: 28-Oct-2022 10:10 by: Donn Trammell ( (Resident)) Discharge - Reconciliation: 28-Oct-2022 10:16 by: Donn Trammell ( (Resident)) Discharge - Reset to Incomplete: 28-Oct-2022 11:05 by: Noemí Asif ( (Resident)) Discharge - Partial Reconciliation: 28-Oct-2022 11:06 by: Noemí Asif ( (Resident)) Discharge - Reconciliation: 28-Oct-2022 11:08 by: Katina Booker ([facility]) Discharge - Reset to Incomplete: 29-Oct-2022 07:20 by: Katina Booker ([facility]) Discharge - Partial Reconciliation: 29-Oct-2022 07:21 by: Katina Booker ([facility]) Discharge - Reconciliation: 29-Oct-2022 08:21 by: Katina Booker ([facility]) Discharge - Reset to Incomplete: 29-Oct-2022 11:27 by: Katina Booker ([facility]) Discharge - Reconciliation: 29-Oct-2022 11:31 by: Katina Booker ([facility]) Discharge - Reset to Incomplete: 29-Oct-2022 13:31 by: Katina Booker ([facility]) Discharge - Reconciliation: 29-Oct-2022 13:34 by: Katina Booker ([facility]) Home Medications EnteredHOME MEDICATIONS AT DISCHARGE [...] 2 inha (more content not included)... Normal [facility] Order Reconciliation Page 1 Admission [...] Notes: Was receiving vancomycin 1,250mg q12h at [facility], last dose given 1700 on 10/23. Vancomycin trough 17.4 obtained 10/23 16:19 Normal [facility] Patient Profile - Adult v2on [...] Health: Weight in kg60.1 kilogram(s)(1) Weight in xtc592.4 pound(s) Weight Methodactual (measured) Scale Typebed Height [...] From History and Physical 24-Oct-2022 02:31 Normal [facility] SEDIMENTATION RATE, ERYTHROC YTEon 10-24-2022 SEDIMENTATION RATE, ERYTHROCYTE 80 mm/h High 0 - 30 [facility] Comment on above: Performed By: #### V ANCU #### [facility] [address] [place] [address] Sedimentation Rate, Erythroc yteon 10-24-2022 ESR (Bld) [Velocity] 80 mm/h above high threshold 0 - 30 [facility] Wilfrid Giang Work Phone: [phone] T-SPOT. TBon 10-24-2022 T-SPOT. TB Passed [facility] Wilfrid Giang Work Phone: [phone] T-SPOT. TB 0 1 [facility] Wilfrid Giang Work Phone: [phone] T-SPOT. TB Negative See Below [facility] Wilfrid Giang Work Phone: [phone] Comment on above: Reference Range: Nor mal [...] 10-23-2022 MYELOPEROXIDASE < 0.2 Normal <1.0 The [facility] Comment on above: Performed By: #### A NCA ROCHA VAS #### [facility] [address] [place] [address], MYELOPEROXIDASE INTERPRETATION Negative Normal Negative [facility] Comment on above: Performed By: #### A NCA ROCHA VAS #### [facility] [address] [place] [address], PROTEINASE-3 < 0.2 Normal <1.0 [facility] Comment on above: Performed By: #### A NCA ROCHA VAS #### [facility] [address], [place], PROTEINASE-3 INTERPRETATION Negative Normal Negative [facility] Comment on above: Performed By: #### A NCA ROCHA VAS #### [facility] [address], [place], C-REACTIVE PROTEINon 023 CRP 4.6 mg/dL High <0.8 [facility] Comment on above: Performed By: #### T SH HS, T3, CRP #### [facility] [address], [place], CLOSTRIDIUM DIFFICILEon 09-29 CLOSTRIDIUM DIFFICILE Negative Normal Negative [facility] Comment on above: Order Comment: Resul ts obtained by using a real-time PCR based qualitative in vitro diagnostic test for the direct detection of the C. difficile toxin A gene (tcdA) and toxin B gene (tcdB) targets in stool specimens.Results should be interpreted in conjunction with information from the patient clinical evaluation and other diagnostic testing Performed By: #### C DD ####[facility] [id number] [facility] [place], [place] Care Plan Noteon 10-23-2022 [employer] Authentication Interface Message Text [facility] wait time is extensive per transfer. I spoke with pt and Domonique - they are agreeable to pursue . Please initiate transfer to Orbital surgery for biopsy Pt is accepted to [facility] by Dr. Jannette Eid, pending bed availability. However, as there is extensive wait time for the bed will initiate transfer. Normal [facility] [employer] Authentication Interface Message Text Problem: Routine Care: [...] and/or be maintained Outcome: Progressing Normal [facility] ERYTHROCYTE SEDIMENTATION RA Km 10-23-2022 ESR (Bld) [Velocity] 53 mm/h High <=30 [facility] Comment on above: Performed By: #### C OVID19 #### [facility] [address], [place], IMMUNOGLOBULIN Sudeep IgG [Mass/Vol] 842 mg/dL Normal 768-1632 [facility] Comment on above: Performed By: #### C OVID19 #### [facility] [address], [place], NOVEL CORONAVIRUS (COVID-19) on 10-23-2022 SARS-CoV-2 (COVID-19) RNA KANDY+probe Ql (Unsp spec) Not detected Normal Not Detected [facility] Comment on above: Order Comment: Not D etected results are indicative of the absence of SARS-CoV-2 in the specimen submitted for testing. False negative results are possible based on the timing and quality of specimen submitted for testing. This test is intended for use only under Emergency Use Authorization (EUA). This test was developed, and its performance characteristics determined by [facility] which is certified under CLIA as qualified to perform high complexity clinical laboratory testing. Result Comment: This assay was performed using Emeli GISELLE RTPCR technology. Performed By: #### C OVID19 #### [facility] [address], [place], Progress Noteson 10-23-2022 [employer] Authentication Interface Message Text 2329 Transferred to via ambulette Normal The [facility] Interface Message Text 2119 Received a call from that patient has a bed held for her. She will be going to [facility], [place] [address], Bed 0271. Requesting copy of chart to accompany pt. Call nursing report to [phone]. JACKELINE Thurman notified. 2148 Ambulance request placed. Patient notified. Chart being prepped by [facility] [facility]. 2330 Report called SARWAT Pastrana. Pt transported via ambulette with all belongings. Pt updated her family of her transfer. Normal [facility] [employer] Authentication Interface Message Text Pharmacokinetic Dosing Service - VANCOMYCIN Name: Gracie Banuelos Age:[age] year old Gender: female Ht: 5' 3 Wt: no weight Indication: orbital cellulitis/BIT SANDER (?) Desired Ranges: 15-20 Day of therapy: 4 Assessment and Recommendations: 10/23/22 PLAPPONI- Day4: orbital cellulitis/BIT SANDER (?) ; Renal function: stable; Current level:17.4. [...] Source/Reason for Therapy Answer: Central Nervous System (BIT SANDER) -- 10/20/221652 vancomycin dosing pharmacy consult Other, As Directed Question: Suspected Source/Reason for Therapy Answer: Central Nervous System (BIT SANDER) -- Lab Values: Creatinine Date Value Ref Range Status 10/20/2022 0.56 0.50 - 1.10 mg/dL Final Lab Results Component Value Date/Time VANCTR 17.4 10/23/2022 04:19 PM VANCTR 16.6 10/21/2022 03:44 PM No results found for: VANCR Serum creatinine: 0.56 mg/dL 10/20/22 0910 Estimated creatinine clearance: 89.48 mL/min Culture(s): FRIEDA ANDERSON, [facility] - Department of Pharmacy Services Normal The [facility] Interface Message Text CM aware of transfer process that has begun to [facility]. CM will remain available to assist with discharge planning and needs as warranted. Katina GALLOWAY, algologist (8:30-4:00) Normal The [facility] Interface Message Text Daily follow up visit [...] Syphilis Tb - Recommend transfer to or [facility] for oculoplastics care. The patient will likely require a cut-down biopsy to determine etiology of inflammation, which [facility]. 2. 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 Pt Voices understanding of plan and AVS. Jaime Aggarwal MD Ophthalmology Resident Plan discussed with Dr. Kidd Normal [facility] [employer] Authentication Interface Message Text ID FOLLOW UP [...] IV -Ophthalmology on board. Awaiting transfer to [facility] or for oculoplasty and biopsy to determine etiology due to concern for infiltrative process. -Consider repeat MRI orbit to reassess if transfer is delay. -Continue to monitor BM as she has diarrhea. Noted Cdiff negative. -Ok to remove contact precautions. ID will continue to follow Findings and recommendations discussed with Dr. Oliveira. aCr Dorado MD ID fellow, [id number]-[id number] Pager: [phone] Normal The [facility] RHEUMATOID FACTORon 10-23-19 23 RHEUMATOID FACTOR < 10 Normal <10 [facility] Comment on above: Performed By: #### C OVID19 #### [facility] [address] [place] [address], [phone] SYPHILIS WITH CONFIRMATIONon 10-23-2022 SYPHILIS TOTAL (IGG/IGM) Non-Reactive Normal Non-Reactive [facility] Comment on above: Order Comment: Not D etected results are indicative of the absence of SARS-CoV-2 in the specimen submitted for testing. False negative results are possible based on the timing and quality of specimen submitted for testing. This test is intended for use only under Emergency Use Authorization (EUA). This test was developed, and its performance characteristics determined by [facility] which is certified under CLIA as qualified to perform high complexity clinical laboratory testing. Performed By: #### C OVID19 #### [facility] [address], [place], TPPA Normal [facility] Comment on above: Order Comment: Not D etected results are indicative of the absence of SARS-CoV-2 in the specimen submitted for testing. False negative results are possible based on the timing and quality of specimen submitted for testing. This test is intended for use only under Emergency Use Authorization (EUA). This test was developed, and its performance characteristics determined by [facility] which is certified under CLIA as qualified to perform high complexity clinical laboratory testing. Performed By: #### C OVID19 #### [facility] [address], [place], TRIIODOTHYRONINE (T3)on 09-29 T3 135.6 ng/dL Normal 87.0-179.0 [facility] Comment on above: Performed By: #### T SH HS, T3, CRP #### [facility] [address], [place], TSHon 10-23-2022 TSH 3.964 uIU/mL Normal 0.450-5.330 [facility] Comment on above: Result Comment: Refe ludin range for women as applicable: First Trimester: 0. 050 to 3.700 uIU/mL Second Trimester: 0. 310 to 4.350 uIU/mL Third Trimester: 0. 410 to 5.180 uIU/mL Performed By: #### T SH HS, T3, CRP #### [facility] [address], [place], Telephone Encounteron 2022 [employer] Authentication Interface Message Text Spoke to Domonique, pt sister Explained rationale for biopsy and transfer All questions answered Normal [facility] [employer] Authentication Interface Message Text PT's sister, Domonique calling in stating Dr. Aggarwal called and LVM for her regarding her sister that is inpatient. Please call Domonique back to discuss her sister Dx's [phone] ( PT will be home until 2:30 pm) Normal [facility] VANCOMYCIN TROUGHon 10-23-19 23 VANC TR 17.4 ug/mL Normal 10.0-20.0 [facility] Comment on above: Performed By: #### V ANC TR #### [facility] [address], [place], CBC WITH DIFFERENTIALon 09-29 Basophils (Bld) [#/Vol] 0.12 10*3/uL Normal 0.00-0.20 [facility] Comment on above: Performed By: #### C BCDSAT ####[facility] [id number] [place], [place], Basophils/100 WBC (Bld) 0.7 % Normal <=1.9 [facility] Comment on above: Performed By: #### C BCDSAT ####[facility] [id number] [place], [place], Eosinophils (Bld) [#/Vol] 0.54 10*3/uL Normal 0.00-0.70 [facility] Comment on above: Performed By: #### C BCDSAT ####[facility] [id number] [place], [place], Eosinophils/100 WBC (Bld) 3.4 % Normal 0.1-4.0 [facility] Comment on above: Performed By: #### C BCDSAT ####[facility] [id number] [place], [place], Erythrocyte distribution width (RBC) [Ratio] 14.1 % Normal 11.5-14.5 [facility] Comment on above: Performed By: #### C BCDSAT ####[facility] [id number] [place], [place], Hematocrit (Bld) [Volume fraction] 35.3 % Low 36.0-46.0 [facility] Comment on above: Performed By: #### C BCDSAT ####[facility] [id number] [place], [place], Hemoglobin (Bld) [Mass/Vol] 11.4 g/dL Low 12.0-15.0 The [facility] Comment on above: Performed By: #### C BCDSAT ####[facility] [id number] [place], [place], Lymphocytes (Bld) [#/Vol] 2.11 10*3/uL Normal 1.00-4.80 The [facility] Comment on above: Performed By: #### C BCDSAT ####[facility] [id number] [place], [place], Lymphocytes/100 WBC (Bld) 13.2 % Low 24.0-44.0 The [facility] Comment on above: Performed By: #### C BCDSAT ####[facility] [id number] [place], [place], MCH (RBC) [Entitic mass] 27.4 pg Normal 26.0-34.0 The [facility] Comment on above: Performed By: #### C HALIMADSAT ####[facility] [id number] [place] [address], MCHC (RBC) [Mass/Vol] 32.3 g/dL Normal 32.0-35.9 The [facility] Comment on above: Performed By: #### C BCDSAT ####[facility] [id number] [place] [address], MCV (RBC) [Entitic vol] 85 fL Normal 80-100 The [facility] Comment on above: Performed By: #### C BCDSAT ####[facility] [id number] [place], [place], MONOCYTE DISTRIBUTION WIDTH Normal The [facility] Comment on above: Performed By: #### C BCDSAT ####[facility] [id number] [place], [place], Monocytes (Bld) [#/Vol] 1.11 10*3/uL High 0.20-1.00 The [facility] Comment on above: Performed By: #### C BCDSAT ####[facility] [id number] [place], [place], Monocytes/100 WBC (Bld) 7.0 % Normal 2.0-11.0 The [facility] Comment on above: Performed By: #### C BCDSAT ####[facility] [id number] [place], [place], Neutrophils (Bld) [#/Vol] 12.11 10*3/uL High 1.50-8.00 The [facility] Comment on above: Performed By: #### C HALIMADSAT ####[facility] [id number] [place], [place], Neutrophils/100 WBC (Bld) 75.7 % Normal 31.0-76.0 The [facility] Comment on above: Performed By: #### C HALIMADSAT ####[facility] [id number] [place], [place], Platelet mean volume (Bld) [Entitic vol] 8.0 fL Normal 7.5-11.2 The [facility] Comment on above: Performed By: #### Nichole ROAAT ####[facility] [id number] [place], [place], Platelets (Bld) [#/Vol] 332 10*3/uL Normal 150-400 [facility] Comment on above: Performed By: #### Nichole ROAAT ####[facility] [id number] [place], [place], RBC (Bld) [#/Vol] 4.16 10*6/uL Normal 4.00-5.20 The [facility] Comment on above: Performed By: #### Nichole ROAAT ####[facility] [id number] [place], [place], WBC (Bld) [#/Vol] 16.0 10*3/uL High 4.5-11.5 [facility] Comment on above: Performed By: #### Nichole ROAAT ####[facility] [id number] [place], [place], Care Plan Noteon 10-22-2022 [employer] Authentication Interface Message Text Ophthal called me and recommended transfer to [facility]/ for Oculoplastic Orbital surgery for biopsy Patient requested me to talk with her sister, Domonique who is a HCW. I discussed the above recommendations and she preferred [facility] transfer. Will initiate the process tomorrow. Normal [facility] [employer] Authentication Interface Message Text Problem: Routine Care: [...] will be met Outcome: Progressing Normal [facility] Progress Noteson 10-22-2022 [employer] Authentication Interface Message Text -------- Attestation signed [...] she remains afebrile. Ophthalmology recommended transfer to [facility] or for oculoplasty due to concern [...] (10/21) -Ophthalmology on board. Recommended transfer to [facility] or for oculoplasty and biopsy to determine etiology due to concern for infiltrative process. ID will continue to follow Findings and recommendations discussed with Dr. Oliveira. Car Dorado MD ID fellow, [id number]-[id number] Pager: [phone] Normal [facility] [employer] Authentication Interface Message Text Teaching Physician Note: [...] to orbital surgeon for biopsy: O-P at [facility] or Uri Peña MD Normal [facility] [employer] Authentication Interface Message Text Daily follow up [...] that did not have beds, sent to [facility] for possible admission for orbital [...] from ENT - Recommend transfer to or [facility] for oculoplastics care. The patient will [...] discussed with Dr. Kidd and Normal [facility] Care Plan Noteon 10-21-2022 [employer] Authentication Interface Message Text Problem: Routine Care: [...] will be met Outcome: Progressing Normal [facility] [employer] Authentication Interface Message Text Problem: Routine Care: [...] will be met Outcome: Progressing Normal [facility] Consultson 10-21-2022 [employer] Authentication Interface Message Text -------- Attestation signed [...] pertinent surgical history. Allergies: Allergies Allergen Reactions P[place]y [Acetaminophen-Hydrocodo ne] Penicillins Medications: Current Facility-Administered Medications [...] mg Oral At Bedtime 20 mg at 10/20/222208 [MAR Hold] albuterol (PROVENTIL) (2.5 MG/3ML) 0.083% [...] At Bedtime 5 mg at 10/20/22 220 [id number] (CREON (more content not included)... Normal [facility] MR HEAD/ORBIT W/Oon 10-21-19 MR HEAD/ORBIT [...] and diffuse abnormal infiltration throughout the right graduate intern space with asymmetric enlargement of the right [...] pterygopalatine fossa and diffusely throughout the right graduate intern space with asymmetry of the muscles of [...] with read back verification. (-CF-) Normal [facility] MR ORBIT W/+W/Oon 10-21-2022 MR ORBIT W/+W/O EXAMINATION: MR OWENS T W/+W/O 10/21/2022 02:17 PM CLINICAL HISTORY: [...] infiltration of the right muscles of the graduate intern (pterygoids and the temporalis), retroantral fat pad [...] sinus are normal. MACRO: None Normal [facility] Progress Noteson 10-21-2022 [employer] Authentication Interface Message Text [address] Stein requesting robitussin. Normal The [facility] Interface Message Text Pharmacokinetic Dosing Service - VANCOMYCIN Name: Gracie Banuelos Age:[age] year old Gender: female Ht: 5' 3 Wt: no weight Indication: Central Nervous System (BIT SANDER) and orbital cellulitis Desired Ranges: 15-20 Day of therapy: 2 Assessment and Recommendations: 10/21/22 HROBINSON1- Day 2: Central Nervous System (BIT SANDER) and orbital cellulitis ; Renal function: stable; No change recommended. Next level Due:prior to 4th dose. Level not ordered Current Dose Active Vancomycin Orders (From admission, onward) Start Stop 10/20/221654 vancomycin (VANCOCIN) 1,250 mg/250 mL iv soln (ROOM TEMP PREMIX) 20 mg/kg, Intravenous, EVERY 12 HOURS Question: Suspected Source/Reason for Therapy Answer: Central Nervous System (BIT SANDER) -- 10/20/221652 vancomycin dosing pharmacy consult Other, As Directed Question: Suspected Source/Reason for Therapy Answer: Central Nervous System (BIT SANDER) -- Lab Values: Creatinine Date Value Ref Range Status 10/20/2022 0.56 0.50 - 1.10 mg/dL Final Lab Results Component Value Date/Time VANCTR 16.6 10/21/2022 03:44 PM No results found for: VANCR Serum creatinine: 0.56 mg/dL 10/20/22 0910 Estimated creatinine clearance: 89.48 mL/min Culture(s): PENDING. Chelsea Montilla [facility] - Department of Pharmacy Services Normal The [employer] Interface Message Text Follow up visit 1. [...] MD and Jaime Aggarwal MD Normal [facility] [employer] Authentication Interface Message Text Pt states that she seeing double with both eyes open The images are vertical, one on top of the other. It doesn't happen all day. It comes and goes. VA: OD cc: 20/30+3 OS:cc: -2 Ph: 2025-1 Pupil OU 3/round/minimal/none EOM: Full CVF OU: Full IOP OD: 11 OS:08 Normal [facility] VANCOMYCIN TROUGHon 10-21-19 23 VANC TR 16.6 ug/mL Normal 10.0-20.0 [facility] Comment on above: Performed By: #### V ANC TR ####S PATHOLOGY [id number] [place], [place], BASIC METABOLIC PANELon 09-29 Anion gap [Moles/Vol] 11 mmol/L Normal 10-20 The [facility] Comment on above: Performed By: #### C H8 #### [facility] [address] [place], [place], Calcium [Mass/Vol] 9.4 mg/dL Normal 8.4-10.4 [facility] Comment on above: Performed By: #### C H8 #### [facility] [address] [place], [place], Chloride [Moles/Vol] 102 mmol/L Normal 97-111 [facility] Comment on above: Performed By: #### C H8 #### [facility] [address] [place], [place], CO2 [Moles/Vol] 28 mmol/L Normal 21-30 [facility] Comment on above: Performed By: #### C H8 #### S [facility] [address], [place], Creatinine [Mass/Vol] 0.56 mg/dL Normal 0.50-1.10 [facility] Comment on above: Performed By: #### C H8 #### S [facility] [address] [place], [place], ESTIMATED GFR (CKD-EPI) 105 mL/min/1.73sqm Normal >=60 [facility] Comment on above: Result Comment: 2020 CKD EPI Equation using Creatinine without Race Comment: Estimated glomerular filtration rate (eGFR) is calculated without a race coefficient. Values should be interpreted in the context of the patient's full clinical presentation. Reference: 1. Judson Varela Baweja M, Isamar GUNDERSON, et al.. A Unifying Approach for GFR Estimation: Recommendations of the NKF-ASN Task Force on Reassessing the Inclusion of Race in Diagnosing Kidney Disease. [place] Journal of Kidney Diseases 2021;79(2):268-88.e1. 2. N Engl J Med 2020 Vol. 385 Issue 19 Pages 2906-4675 Performed By: #### C H8 #### [facility] [address] [place] [address], Glucose [Mass/Vol] 96 mg/dL Normal 68-110 [facility] Comment on above: Performed By: #### C H8 #### [facility] [address] [place] [address], Potassium [Moles/Vol] 4.3 mmol/L Normal 3.3-5.3 [facility] Comment on above: Performed By: #### C H8 #### [facility] [address] [place] [address], Sodium [Moles/Vol] 137 mmol/L Normal 135-148 [facility] Comment on above: Performed By: #### C H8 #### [facility] [address] [place] [address], Urea nitrogen [Mass/Vol] 10 mg/dL Normal 8-22 [facility] Comment on above: Performed By: #### C H8 #### [facility] [address] [place] [address], CBC WITH DIFFERENTIALon 09-29 Basophils (Bld) [#/Vol] 0.19 10*3/uL Normal 0.00-0.20 [facility] Comment on above: Performed By: #### C OVID19 #### [facility] [address] [place] [address], Basophils/100 WBC (Bld) 1.3 % Normal <=1.9 [facility] Comment on above: Performed By: #### C OVID19 #### [facility] [address] [place] [address], Eosinophils (Bld) [#/Vol] 0.52 10*3/uL Normal 0.00-0.70 [facility] Comment on above: Performed By: #### C OVID19 #### [facility] [address] [place] [address], Eosinophils/100 WBC (Bld) 3.5 % Normal 0.1-4.0 [facility] Comment on above: Performed By: #### C OVID19 #### [facility] [address] [place] [address], Erythrocyte distribution width (RBC) [Ratio] 14.0 % Normal 11.5-14.5 [facility] Comment on above: Performed By: #### C OVID19 #### [facility] [address] [place] [address], Hematocrit (Bld) [Volume fraction] 37.4 % Normal 36.0-46.0 [facility] Comment on above: Performed By: #### C OVID19 #### [facility] [address] [place] [address], Hemoglobin (Bld) [Mass/Vol] 12.4 g/dL Normal 12.0-15.0 [facility] Comment on above: Performed By: #### C OVID19 #### [facility] [address] [place] [address], Lymphocytes (Bld) [#/Vol] 2.87 10*3/uL Normal 1.00-4.80 [facility] Comment on above: Performed By: #### C OVID19 #### [facility] [address] [place] [address], Lymphocytes/100 WBC (Bld) 19.5 % Low 24.0-44.0 [facility] Comment on above: Performed By: #### C OVID19 #### [facility] [address] [place] [address], MCH (RBC) [Entitic mass] 28.1 pg Normal 26.0-34.0 [facility] Comment on above: Performed By: #### C OVID19 #### [facility] [address] [place] [address], MCHC (RBC) [Mass/Vol] 33.2 g/dL Normal 32.0-35.9 [facility] Comment on above: Performed By: #### C OVID19 #### [facility] [address] [place] [address], MCV (RBC) [Entitic vol] 85 fL Normal 80-100 [facility] Comment on above: Performed By: #### C OVID19 #### S [facility] [address] [place], [place], MONOCYTE DISTRIBUTION WIDTH 19 Normal <=20 [facility] Comment on above: Performed By: #### C OVID19 #### [facility] [address] [place], [place], Monocytes (Bld) [#/Vol] 1.30 10*3/uL High 0.20-1.00 [facility] Comment on above: Performed By: #### C OVID19 #### [facility] [address] [place], [place], Monocytes/100 WBC (Bld) 8.8 % Normal 2.0-11.0 [facility] Comment on above: Performed By: #### C OVID19 #### [facility] [address] [place], [place], Neutrophils (Bld) [#/Vol] 9.87 10*3/uL High 1.50-8.00 [facility] Comment on above: Performed By: #### C OVID19 #### [facility] [address] [place], Neutrophils/100 WBC (Bld) 66.9 % Normal 31.0-76.0 [facility] Comment on above: Performed By: #### C OVID19 #### [facility] [address] [place], [place], Platelet mean volume (Bld) [Entitic vol] 8.1 fL Normal 7.5-11.2 [facility] Comment on above: Performed By: #### C OVID19 #### [facility] [address] [place], [place], Platelets (Bld) [#/Vol] 359 10*3/uL Normal 150-400 [facility] Comment on above: Performed By: #### C OVID19 #### [facility] [address] [place], [place], RBC (Bld) [#/Vol] 4.41 10*6/uL Normal 4.00-5.20 [facility] Comment on above: Performed By: #### C OVID19 #### [facility] [address] [place], WBC (Bld) [#/Vol] 14.8 10*3/uL High 4.5-11.5 [facility] Comment on above: Performed By: #### C OVID19 #### [facility] [address] [place], [place], CT CHEST W/O CONTRASTon 09-29 CT CHEST W/O CONTRAST EXAMINATION: CT CH EST W/O CONTRAST 10/20/2022 06:05 PM CLINICAL HISTORY: Hilar lymphadenopathy; Interstitial Lung disease; ?sarcoidosis ASSOCIATED DIAGNOSIS: Hilar lymphadenopathy Interstitial lung disease ?sarcoidosis ORDERING PROVIDER: [facility] NOTE: COMPARISON: None TECHNIQUE: Contiguous axial [...] risk, a follow-up CHEST W/O CONTRAST (code: [id number]) is optional at 12 months. 4. Severe coronary artery calcifications. Mitral annular calcification. MACRO: None Normal [facility] Consultson 10-20-2022 [employer] Authentication Interface Message Text -------- Attestation signed [...] was started on clindamycin yesterday in the [place] ED with improvement in her symptoms. She [...] sinus. Other Studies/Information: I personally reviewed the service delivery management consultant notes or primary team notes as [...] Head AND Neck Surgery ENT Team Pager: [phone] Normal [facility] ED Provider Noteson 10-20-19 23 [employer] Authentication Interface Message Text ENT and med [...] evaluated, recommend admission for IV abx, further [id number] as delineated in their note. No indication for biopsy at this time. Will repage team 7 med and update. Janeth Kamara MD Normal [facility] [employer] Authentication Interface Message Text EMERGENCY DEPARTMENT - VISIT NOTE ------ HISTORY OF PRESENT ILLNESS -- Chief Complaint Patient presents with Eye pain Transfer from osh for R eye cellulitis Rental Counter Clerk: not needed - patient preferred language is Kosovan. The history is provided by the Patient. [...] beds available at OSH and transferred to [facility] for admission. Currently on clindamycin. Morphine [...] incorporated. Review of External (Non- ED) Notes: [facility] ED notes reviewed and show [...] days prior by [facility] 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 Pain treated with morphine/zofran. (more content not included)... Normal [facility] Influenza virus A and B and SARS-CoV-2 (COVID-19) Ag panel - Upper respiratory specimOrdered By: Dr. Dykes on 10-20-2022 SARS-CoV-2 (COVID-19) RNA KANDY+probe Ql (Resp) [facility] Progress Noteson 10-20-2022 [employer] Authentication Interface Message Text Pharmacokinetic Dosing Service - VANCOMYCIN Initial Dosing Note Name: Gracie Banuelos Age:[age] year old Gender: female Ht: Data Unavailable Wt: no weight Indication: Central Nervous System (BIT SANDER) Desired Ranges: 15-20 Day of therapy: 1 Assessment and Recommendations: 10/20/22 [id number] - Day 1: Central Nervous System (BIT SANDER); Renal function: stable; ; Maintenance dose: 20 [...] (Unknown ideal weight.) Culture(s): PENDING CHRISTIANE ROTHMAN [facility] - Department of Pharmacy Services Normal [facility] [employer] Authentication Interface Message Text New consult from [...] PGY-[address] Guerin Normal [facility] Telephone Encounteron 2022 [employer] Authentication Interface Message Text I was called by [facility] regarding a transfer from [place] ED. That facility is requesting transfer because [...] 13, ESR/CRP elevated. Discussed with provider at [place] ED, advised they should discuss case with ophthalmology as patient may benefit from ED to ED transfer rather than direct admission to medicine for earlier ophthalmology evaluation. Patient is not accepted to medicine at this time, 5:18 AM 10/20/22. Jeffy Garner MD Normal [facility] Absolute lymphocyte countOrd ered By: Dr. Dykes on 10-19-2022 Lymphocytes Auto (Unsp spec) [#/Vol] 3.28 10*3/uL 0.83-4.51 [facility] Basophil percentageOrdered B y: Dr. Dykes on 10-19-2022 Basophils/100 WBC (Bld) 0.8 % 0-1 [facility] Chloride [Moles/Vol] 107 mmol/L 98-107 [facility] Eosinophils/100 WBC (Bld) 4.4 % 0-5 [facility] Glucose [Mass/Vol] 97 mg/dL 74-106 [facility] Neutrophils (Bld) [#/Vol] 8.8 10*3/uL 2.0-7.7 [facility] Neutrophils/100 WBC (Bld) 63.4 % 47-70 [facility] Potassium [Moles/Vol] 3.8 mmol/L 3.5-5.1 [facility] Sodium [Moles/Vol] 137 mmol/L 136-145 [facility] WBC (Bld) [#/Vol] 13.9 10*3/uL 4.4-11.0 [facility] Blood erythrocytes count (nu mber/volume)Ordered By: Dr. Dykes on 10-19-2022 RBC (Bld) [#/Vol] 4.87 10*6/uL 4.2-5.4 [facility] Blood hemoglobin measurement (mass/volume)Ordered By: Dr. Dykes on 10-19-2022 Hemoglobin (Bld) [Mass/Vol] 13.6 g/dL 12.0-15.0 [facility] Blood lymphocytes/100 leukoc ytesOrdered By: Dr. Dykes on 10-19-2022 Lymphocytes/100 WBC (Bld) 23.6 % 19-41 [facility] Blood monocytes/100 leukocyt esOrdered By: Dr. Dykes on 10-19-2022 Monocytes/100 WBC (Bld) 7.1 % 0-10 [facility] Blood platelet mean volumeOr dered By: Dr. Dykes on 10-19-2022 Platelet mean volume (Bld) [Entitic vol] 9.6 fL 6.2-12.0 [facility] Determination of erythrocyte mean corpuscular volume (MCV)Ordered By: Dr. Dykes on 10-19-2022 MCV (RBC) [Entitic vol] 85.0 fL 81-99 [facility] Erythrocyte sedimentation ra teOrdered By: Dr. Dykes on 10-19-2022 ESR (Bld) [Velocity] 75 mm/h 0-30 [facility] Hematocrit Auto (Bld) [Volum e fraction]Ordered By: Dr. Dykes on 10-19-2022 Hematocrit (Bld) [Volume fraction] 41.4 % 37-47 [facility] Influenza virus A and B and SARS-CoV-2 (COVID-19) Ag panel - Upper respiratory specimOrdered By: Dr. Dykes on 10-19-2022 SARS-CoV-2 (COVID-19) RNA KANDY+probe Ql (Resp) [facility] Laboratory - Chemistry and C hemistry - challengeOrdered By: Dr. Dykes on 10-19-2022 CO2 [Moles/Vol] 26.0 mmol/L 21.0-32.0 [facility] Urea nitrogen/Creatinine [Mass ratio] 11.3 mg/mg 10-20 [facility] Laboratory - Hematology and Cell countsOrdered By: Dr. Dykes on 10-19-2022 Erythrocyte distribution width (RBC) [Entitic vol] 41.5 fL 35.1-43.9 [facility] Erythrocyte distribution width (RBC) [Ratio] 13.2 % 11.6-14.6 [facility] Immature granulocytes/100 WBC (Bld) 0.700 % 0.0-0.9 [facility] Comment on above: IG% - Immature Granu locytes (promyelocytes, myelocytes and metamyelocytes) > 1% indicates that a LEFT SHIFT is Present. MCH (RBC) [Entitic mass] 27.9 pg 27.0-32.0 [facility] Nucleated RBC/100 WBC (Bld) [Ratio] 0 % 0-5 [facility] MCHC Auto (RBC) [Mass/Vol]Or dered By: Dr. Dykes on 10-19-2022 MCHC (RBC) [Mass/Vol] 32.9 g/dL 32-36 [facility] No Panel InformationOrdered By: Dr. Dykes on 10-19-2022 Estimated Creatinine Clearance Calc 80.82 ml/min [facility] Estimated GFR (MDRD) Amer 127 mL/min >60 [facility] Comment on above: GFR Calc Estimated GFR (MDRD) Non-Af Amer 105 mL/min >60 [facility] Comment on above: Non- GFR Calc Platelets bldOrdered By: Dr. Dykes on 10-19-2022 Platelets (Bld) [#/Vol] 384 10*3/uL 150-450 [facility] Serum or plasma C reactive p rotein measurement (mass/volume)Ordered By: Dr. Dykes on 10-19-2022 CRP [Mass/Vol] 42.60 mg/L 0.0-3.0 [facility] Comment on above: C-Reactive Protein ( CRP) provides useful information for thediagnosis, therapy and monitoring of inflammatory processesand associated diseases. For the evaluation of Relative Riskfor Cardiovascular Disease, a High Sensitivity CRP (HSCRP)should be ordered. Serum or plasma calcium esthela urement (mass/volume)Ordered By: Dr. Dykes on 10-19-2022 Calcium [Mass/Vol] 9.5 mg/dL 8.5-10.1 [facility] Serum or plasma creatinine m easurement (mass/volume)Ordered By: Dr. Dykes on 10-19-2022 Creatinine [Mass/Vol] 0.62 mg/dL 0.55-1.02 [facility] Comment on above: The validity of the calculated GFR & GFRAA in patients over 70 years has not been determined. Clinical correlation is essential. Serum or plasma urea nitroge n measurement (mass/volume)Ordered By: Dr. Dykes on 10-19-2022 Urea nitrogen [Mass/Vol] 7 mg/dL 7-18 [facility] Thin prep Papanicolaou smear with manual screeningOrdered By: Dr. Dykes on 10-19-2022 Thin prep Papanicolaou smear with manual screening 4 5-15 [facility] Laboratory - Microbiology an d Antimicrobial susceptibilityOrdered By: Dr. Handy on 08-28-2022 Bacteria identified Cx Nom (Bld) No growth in 5 days. [facility] Culture, urineOrdered By: Dr Max Handy on 08-24-2022 Bacteria identified Cx Nom (U) Positive [facility] Absolute lymphocyte countOrd ered By: Dr. Handy on 08-22-2022 Lymphocytes Auto (Unsp spec) [#/Vol] 2.04 10*3/uL 0.83-4.51 [facility] Basophil percentageOrdered B y: Dr. Handy on 08-22-2022 Basophil percentage 0 SEEN /hpf 0-5 [facility] Basophils/100 WBC (Bld) 0.3 % 0-1 [facility] Bilirubin [Mass/Vol] 0.20 mg/dL 0.20-1.00 [facility] Comment on above: For patients on eltr ombopag therapy, use of Dimension [place] TBIL is not recommended. Chloride [Moles/Vol] 95 mmol/L 98-107 [facility] Eosinophils/100 WBC (Bld) 0.6 % 0-5 [facility] Glucose [Mass/Vol] 115 mg/dL 74-106 [facility] Comment on above: Fasting Glucose resu lt from 100 to 125 mg/dL suggests IMPAIRED HOMEOSTASIS per A.D.A. criteria. Lactate [Moles/Vol] 0.7 mmol/L 0.4-2.0 [facility] Neutrophils (Bld) [#/Vol] 6.4 10*3/uL 2.0-7.7 [facility] Neutrophils/100 WBC (Bld) 66.3 % 47-70 [facility] Potassium [Moles/Vol] 3.9 mmol/L 3.5-5.1 [facility] Protein [Mass/Vol] 7.5 g/dL 6.4-8.2 [facility] Sodium [Moles/Vol] 131 mmol/L 136-145 [facility] WBC (Bld) [#/Vol] 9.6 10*3/uL 4.4-11.0 [facility] Bilirubin Test strip Ql (U)O rdered By: Dr. Handy on 08-22-2022 Bilirubin Ql (U) Negative Negative [facility] Blood erythrocytes count (nu mber/volume)Ordered By: Dr. Handy on 08-22-2022 RBC (Bld) [#/Vol] 5.09 10*6/uL 4.2-5.4 [facility] Blood hemoglobin measurement (mass/volume)Ordered By: Dr. Handy on 08-22-2022 Hemoglobin (Bld) [Mass/Vol] 15.2 g/dL 12.0-15.0 [facility] Blood lymphocytes/100 leukoc ytesOrdered By: Dr. Handy on 08-22-2022 Lymphocytes/100 WBC (Bld) 21.2 % 19-41 [facility] Blood monocytes/100 leukocyt esOrdered By: Dr. Handy on 08-22-2022 Monocytes/100 WBC (Bld) 11.3 % 0-10 [facility] Blood platelet mean volumeOr dered By: Dr. Handy on 08-22-2022 Platelet mean volume (Bld) [Entitic vol] 10.8 fL 6.2-12.0 [facility] Determination of erythrocyte mean corpuscular volume (MCV)Ordered By: Dr. Handy on 08-22-2022 MCV (RBC) [Entitic vol] 86.1 fL 81-99 [facility] Hematocrit Auto (Bld) [Volum e fraction]Ordered By: Dr. Handy on 08-22-2022 Hematocrit (Bld) [Volume fraction] 43.8 % 37-47 [facility] INR in Blood by Coagulation assayOrdered By: Dr. Handy on 08-22-2022 INR Coag (Bld) [Relative time] 0.9 {INR} [facility] Influenza virus A and B and SARS-CoV-2 (COVID-19) Ag panel - Upper respiratory specimOrdered By: Dr. Handy on 08-22-2022 SARS-CoV-2 (COVID-19) RNA KANDY+probe Ql (Resp) [facility] Ketones Test strip Ql (U)Ord ered By: Dr. Handy on 08-22-2022 Ketones Ql (U) Negative Negative [facility] Laboratory - Chemistry and C hemistry - challengeOrdered By: Dr. Handy on 08-22-2022 ALP [Catalytic activity/Vol] 108 U/L 45-117 [facility] ALT [Catalytic activity/Vol] 21 U/L 13-56 [facility] CO2 [Moles/Vol] 30.0 mmol/L 21.0-32.0 [facility] Globulin (S) [Mass/Vol] 4.1 g/dL 2.2-4.2 [facility] Urea nitrogen/Creatinine [Mass ratio] 15.0 mg/mg 10-20 [facility] Laboratory - CoagulationOrde red By: Dr. Handy on 08-22-2022 aPTT Coag (Bld) [Time] 28.9 s 24.1-36.2 [facility] PT Coag (PPP) [Time] 12.3 s 11.7-14.9 [facility] Laboratory - Hematology and Cell countsOrdered By: Dr. Handy on 08-22-2022 Erythrocyte distribution width (RBC) [Entitic vol] 42.4 fL 35.1-43.9 [facility] Erythrocyte distribution width (RBC) [Ratio] 13.4 % 11.6-14.6 [facility] Immature granulocytes/100 WBC (Bld) 0.300 % 0.0-0.9 [facility] Comment on above: IG% - Immature Granu locytes (promyelocytes, myelocytes and metamyelocytes) > 1% indicates that a LEFT SHIFT is Present. MCH (RBC) [Entitic mass] 29.9 pg 27.0-32.0 [facility] Nucleated RBC/100 WBC (Bld) [Ratio] 0 % 0-5 [facility] MCHC Auto (RBC) [Mass/Vol]Or dered By: Dr. Handy on 08-22-2022 MCHC (RBC) [Mass/Vol] 34.7 g/dL 32-36 [facility] Mucus LM Ql (Urine sed)Order ed By: Dr. Handy on 08-22-2022 Mucus Ql (Urine sed) 0 SEEN /hpf [facility] Nitrite Test strip Ql (U)Ord ered By: Dr. Handy on 08-22-2022 Nitrite Ql (U) Negative Negative [facility] No Panel InformationOrdered By: Dr. Handy on 08-22-2022 Estimated Creatinine Clearance Calc 83.51 ml/min [facility] Estimated GFR (MDRD) Amer 132 mL/min >60 [facility] Comment on above: GFR Calc Estimated GFR (MDRD) Non-Af Amer 109 mL/min >60 [facility] Comment on above: Non- GFR Calc Troponin I High Sensitivity 25 pg/mL 3.0-54.0 [facility] Comment on above: Please Note: [place] t Units and Gender Specific Reference Ranges. For more information see Policy Stat Procedure [place] High Sensitivity Troponin (TNIH) and attachments. Platelets bldOrdered By: Dr. Handy on 08-22-2022 Platelets (Bld) [#/Vol] 226 10*3/uL 150-450 [facility] Protein Test strip Ql (U)Ord ered By: Dr. Handy on 08-22-2022 Protein Ql (U) Negative Negative [facility] RSV Ag EIAOrdered By: Dr. Kam lou on 08-22-2022 RSV Ag Immune stain Ql (Tiss) [facility] Serum or plasma albumin esthela urement (mass/volume)Ordered By: Dr. Handy on 08-22-2022 Albumin [Mass/Vol] 3.4 g/dL 3.2-5.0 [facility] Serum or plasma albumin/glob ulin mass ratioOrdered By: Dr. Handy on 08-22-2022 Albumin/Globulin [Mass ratio] 0.8 {ratio} 0.9-2.4 [facility] Serum or plasma calcium esthela urement (mass/volume)Ordered By: Dr. Handy on 08-22-2022 Calcium [Mass/Vol] 8.7 mg/dL 8.5-10.1 [facility] Serum or plasma creatinine m easurement (mass/volume)Ordered By: Dr. Handy on 08-22-2022 Creatinine [Mass/Vol] 0.60 mg/dL 0.55-1.02 [facility] Comment on above: The validity of the calculated GFR & GFRAA in patients over 70 years has not been determined. Clinical correlation is essential. Serum or plasma urea nitroge n measurement (mass/volume)Ordered By: Dr. Handy on 08-22-2022 Urea nitrogen [Mass/Vol] 9 mg/dL 7-18 [facility] Squamous epithelial cells de tection in urine sediment by light microscopyOrdered By: Dr. Handy on 08-22-2022 Epithelial cells.squamous LM Ql (Urine sed) 0-5 SEEN /hpf 5-10 [facility] Thin prep Papanicolaou smear with manual screeningOrdered By: Dr. Handy on 08-22-2022 Thin prep Papanicolaou smear with manual screening 17 U/L 15-37 [facility] Thin prep Papanicolaou smear with manual screening 6 5-15 [facility] Urine blood detectionOrdered By: Dr. Handy on 08-22-2022 RBC Ql (U) Negative Negative [facility] RBC Ql (U) 0 SEEN /hpf 0-5 [facility] Urine clarityOrdered By: Dr. Handy on 08-22-2022 Clarity (U) Sl. Cloudy Clear [facility] Urine color determinationOrd ered By: Dr. Handy on 08-22-2022 Color (U) Yellow Yellow [facility] Urine glucose detectionOrder ed By: Dr. Handy on 08-22-2022 Glucose Ql (U) Normal mg/dl Normal [facility] Urine leukocyte esterase det ection by dipstickOrdered By: Dr. Handy on 08-22-2022 Leukocyte esterase Test strip Ql (U) Negative Negative [facility] Urine pHOrdered By: Dr. Rashad lay on 08-22-2022 pH (U) 6.5 [pH] 5.0 - 8.0 [facility] Urine sediment bacteria coun t by microscopy (number/high power field)Ordered By: Dr. Handy on 08-22-2022 Bacteria LM.HPF (Urine sed) [#/Area] RARE /hpf None Seen [facility] Urine specific gravity measu rementOrdered By: Dr. Handy on 08-22-2022 Specific gravity (U) [Rel density] 1.005 1.002-1.030 [facility] Urobilinogen Auto test strip Ql (U)Ordered By: Dr. Handy on 08-22-2022 Urobilinogen Ql (U) Normal mg/dl Normal [facility] Absolute lymphocyte counton 03-03-2022 Lymphocytes Auto (Unsp spec) [#/Vol] 2.54 10*3/uL 0.83-4.51 [facility] Work Phone: Basophil percentageon 2021 Basophils/100 WBC (Bld) 0.8 % 0-1 [facility] Work Phone: Chloride [Moles/Vol] 107 mmol/L 98-107 [facility] Work Phone: Eosinophils/100 WBC (Bld) 2.4 % 0-5 [facility] Work Phone: Glucose [Mass/Vol] 149 mg/dL 74-106 [facility] Work Phone: Comment on above: Fasting Glucose resu lt greater than or equal to 126 mg/dL suggests DIABETES MELLITUS per A.D.A. criteria. Neutrophils (Bld) [#/Vol] 7.8 10*3/uL 2.0-7.7 [facility] Work Phone: Neutrophils/100 WBC (Bld) 66.0 % 47-70 [facility] Work Phone: Potassium [Moles/Vol] 3.6 mmol/L 3.5-5.1 [facility] Work Phone: Sodium [Moles/Vol] 139 mmol/L 136-145 [facility] Work Phone: WBC (Bld) [#/Vol] 11.8 10*3/uL 4.4-11.0 [facility] Work Phone: Blood erythrocytes count (nu mber/volume)on 03-03-2022 RBC (Bld) [#/Vol] 4.79 10*6/uL 4.2-5.4 [facility] Work Phone: Blood hemoglobin measurement (mass/volume)on 03-03-2022 Hemoglobin (Bld) [Mass/Vol] 13.4 g/dL 12.0-15.0 [facility] Work Phone: Blood lymphocytes/100 leukoc yteson 03-03-2022 Lymphocytes/100 WBC (Bld) 21.6 % 19-41 [facility] Work Phone: Blood monocytes/100 leukocyt eson 03-03-2022 Monocytes/100 WBC (Bld) 8.4 % 0-10 [facility] Work Phone: Blood platelet mean volumeon 03-03-2022 Platelet mean volume (Bld) [Entitic vol] 10.4 fL 6.2-12.0 [facility] Work Phone: Determination of erythrocyte mean corpuscular volume (MCV)on 03-03-2022 MCV (RBC) [Entitic vol] 89.4 fL 81-99 [facility] Work Phone: Hematocrit Auto (Bld) [Volum e fraction]on 03-03-2022 Hematocrit (Bld) [Volume fraction] 42.8 % 37-47 [facility] Work Phone: Laboratory - Chemistry and C hemistry - challengeon 03-03-2022 CO2 [Moles/Vol] 27.0 mmol/L 21.0-32.0 [facility] Work Phone: [phone] Urea nitrogen/Creatinine [Mass ratio] 6.7 mg/mg 10-20 [facility] Work Phone: [phone] Laboratory - Hematology and Cell countson 03-03-2022 Erythrocyte distribution width (RBC) [Entitic vol] 45.1 fL 35.1-43.9 [facility] Work Phone: [phone] Erythrocyte distribution width (RBC) [Ratio] 13.8 % 11.6-14.6 [facility] Work Phone: [phone] Immature granulocytes/100 WBC (Bld) 0.800 % 0.0-0.9 [facility] Work Phone: [phone] Comment on above: IG% - Immature Granu locytes (promyelocytes, myelocytes and metamyelocytes) > 1% indicates that a LEFT SHIFT is Present. MCH (RBC) [Entitic mass] 28.0 pg 27.0-32.0 [facility] Work Phone: [phone] Nucleated RBC/100 WBC (Bld) [Ratio] 0 % 0-5 [facility] Work Phone: [phone] MCHC Auto (RBC) [Mass/Vol]on 03-03-2022 MCHC (RBC) [Mass/Vol] 31.3 g/dL 32-36 [facility] Work Phone: [phone] No Panel Informationon 03-03 Estimated Creatinine Clearance Calc 84.54 ml/min [facility] Work Phone: [phone] Estimated GFR (MDRD) Amer 131 mL/min >60 [facility] Work Phone: [phone] Comment on above: GFR Calc Estimated GFR (MDRD) Non-Af Amer 109 mL/min >60 [facility] Work Phone: [phone] Comment on above: Non- GFR Calc SARS-CoV-2 & FLU Antigen (Rapid) [facility] Work Phone: [phone] Troponin I High Sensitivity 14 pg/mL 3.0-54.0 [facility] Work Phone: Comment on above: Please Note: [place] t Units and Gender Specific Reference Ranges. For more information see Policy Stat Procedure [place] High Sensitivity Troponin (TNIH) and attachments. Platelets bldon 03-03-2022 Platelets (Bld) [#/Vol] 251 10*3/uL 150-450 [facility] Work Phone: Serum or plasma calcium esthela urement (mass/volume)on 03-03-2022 Calcium [Mass/Vol] 9.0 mg/dL 8.5-10.1 [facility] Work Phone: Serum or plasma creatinine m easurement (mass/volume)on 03-03-2022 Creatinine [Mass/Vol] 0.60 mg/dL 0.55-1.02 [facility] Work Phone: Comment on above: The validity of the calculated GFR & GFRAA in patients over 70 years has not been determined. Clinical correlation is essential. Serum or plasma urea nitroge n measurement (mass/volume)on 03-03-2022 Urea nitrogen [Mass/Vol] 4 mg/dL 7-18 [facility] Work Phone: Thin prep Papanicolaou smear with manual screeningon 03-03-2022 Thin prep Papanicolaou smear with manual screening 5 5-15 [facility] Work Phone: ANES Pily 12-05-2019 ANES POST HNO ID: [id number] Author: Mark Saab Service: Anesthesiology Author Type: [...] 05, 2019 TIME: 1:36 PM PAGER/CONTACT #: [phone] [facility] ANES PREOPon 12-05-2019 ANES PREOP HNO ID: [id number] Author: Mark Saab Service: Anesthesiology Author Type: [...] Stage 2 moderate COPD by GOLD classification ([facility]) 2018 - Tobacco use - Unspecified hemorrhoids [...] File Prior to Encounter Medication Sig - fldlob-lmakqiqm-tchladv (CREON 24) 24,000-76,000 -120,000 unit cpDR Take [...] December 05, 2019 TIME: 7:47 AM CSN: [id number] Normal [facility] Glucose Meteron 12-05-2019 Glucose [Mass/Vol] 107 mg/dL High 70-99 [facility] Comment on above: Result Comment: SARWAT Sloan OTIFIED Performed By: #### G LMET #### [place] [address] OPERATIVE NOon 12-05-2019 OPERATIVE NO HNO ID: [id number] Author: Claudia Odonnell Service: Gastroenterology Author Type: Physician Type: Operative Report Filed: 12/05/2019 9:08 AM Note Text: OPERATIVE/PROCEDURE REPORT LOG ID: [id number] Surgery/Procedure Date: 12/05/2019 Incision/Procedure Start Time: 8:27 AM Incision Close/Procedure End Time: 8:45 AM Surgeon(s)/Proceduralist (s) and Paste Thinner(s): Surgeon(s) and Role: * Claudia Odonnell - [...] December 05, 2019 TIME: 8:46 AM PAGER/CONTACT #:[phone] Normal [facility] PROGRESSon 12-05-2019 PROGRESS HNO ID: [id number] Author: Juan Everett Service: General Surgery Author Type: Nurse Practitioner Type: Progress Notes Filed: 12/05/2019 7:17 AM Note Text: HANDP completed by Dr. Claudia Odonnell on 11/09/2019. Orders for fluid and IV in Epic. Order for BS check in pre op. Last few BMPs- low glucose. Pt denies history of hypoglycemia. [facility] PT EDon 12-05-2019 PT ED HNO ID: [id number] Author: Ani MunroeRn) SARWAT Ortiz Service: Nursing [...] Ani Ortiz RN In Department: [place] ENDO [facility] PT ED HNO ID: [id number] Author: Gabby MunroeRn) SARWAT Walker Service: Nursing [...] EUS Patient Name: Gracie Banuelos Patient Location: [facility] Readiness To Learn Motivation To Learn: Interested Instruction Provided To: Patient and family member Learning Response Patient/Family Response: Verbalizes understanding of: PRE-PROCEDURE INSTRUCTIONS-Correct action to take to follow pre-procedure instructions Method of Instruction: Individual instruction Verbal instruction Follow-Up Plan: Complete - No need for follow-up Electronically signed by: Gabby Walker RN [facility] Surgical Tissue Examon 12-04 Surgical Tissue Exam Test performed at [facility] [place] [address] NAME: GRACIE BANUELOS REQUESTING: CLAUDIA ODONNELL FINAL [...] PRINTED: 12/07/2019 Page 1 of 1 Normal [facility] Comment on above: Performed By: #### S URG #### [place] [address] HOSPon 11-10-2019 HOSP Patient:Gracie Banuelos MRN: Height:5' 3(1.6 m) Weight:111 lb (50.349 kg) Outpatient Medications as of 12/05/19: dtccmq-sjxwqlum-gubisuo (CREON 24) 24,000-76,000 -120,000 unit cpDR pantoprazole [...] incontinence, stress female [N39.3] HPV test positive [FMC6236] Pulmonary emphysema (HCC) [J43.9] Irritable bowel syndrome [...] basenames: K,HCT Progress Notes (): Juan Everett, SALES MARKET[employer].COMPANY MARKER 12/05/2019 7:17 AM Addendum HANDP completed by [...] Stage 2 moderate COPD by GOLD classification ([facility]) 2017 - Tobacco use - Unspecified hemorrhoids [...] File Prior to Encounter Medication Sig - zvbeur-hfaqwlza-vdipwvm (CREON 24) 24,000-76,000 -120,000 unit cpDR Take [...] December 05, 2019 TIME: 7:47 AM CSN: [id number] Progress Notes ([facility]): Claudia Odonnell MD 11/09/2019 3:06 PM Signed HPI:Gracie Banuelos is a 54 year old female who presents for Chronic Pancreatitis. She has h/o- alcohol abuse- quit 10 months ago. She has c/o- pain lower abdomen which is chronic for several years and unrelated to food intake. Also has c/o- diarrhea. She has also difficulty to gain weight. She had CT-scan abdomen from [facility] which shows calcifications in pancreas- suggestive of chronic pancreatitis. No h/o- nausea, vomiting, loss of appetite, hematemesis, bleeding OK, unexplained weight loss, diarrhea, tenesmus, nocturnal diarrhea. [...] depression - COPD (chronic obstructive pulmonary disease) ([facility]) 05/25/2012 - DDD (degenerative disc disease), cervical [...] Stage 2 moderate COPD by GOLD classification ([facility]) 2018 - Tobacco use - Unspecified hemorrhoids [...] TIME: 2:32 PM Previous Version Normal [facility] Pulmonary Functiono n 06-19-2017 [place] Pulmonary Function Normal [facility] ([place]) No Panel Information SARS-CoV-2 & FLU Antigen (Rapid) [facility] Work Phone: Vital Signs Date Time Vital Sign Value Performing Clinician Facility 07-10-2025 12:08-0400 Body temperature 97.8 [degF] Dr. Misbah Elkins MD Work Phone: 3(552)267-896637 [place] [address] 07-10-2025 12:08-0400 Diastolic blood pressure 93 mm[Hg] Dr. Misbah Elkins MD Work Phone: 2(621)496-819537 [place] [address] 07-10-2025 12:08-0400 Heart rate 104 /min Dr. Misbah Elkins MD Work Phone: 9(329)203-298537 [place] [address] 07-10-2025 12:08-0400 Respiratory rate 20 /min Dr. Misbah Elkins MD Work Phone: 5(422)348-222937 [place] [address] 07-10-2025 12:08-0400 SaO2% (BldA) [Mass fraction] 92 % Dr. Misbah Elkins MD Work Phone: 1(385)446-086537 [place] [address] 07-10-2025 12:08-0400 Systolic blood pressure 167 mm[Hg] Dr. Misbah Elkins MD Work Phone: 2(658)157-591537 [place] [address] 07-10-2025 11:43-0400 Inhaled oxygen flow rate 5 L/min Dr. Misbah Elkins MD Work Phone: 3(120)299-056737 [place] [address] 07-10-2025 06:55-0400 Body height 160.[address] Misbah Elkins MD Work Phone: 6(012)542-045737 [place] [address] 07-10-2025 06:55-0400 Body mass index (BMI) [Ratio] 24 kg/m2 Dr. Misbah Elkins MD Work Phone: 7(334)342-687537 [place] [address] 07-10-2025 06:55-0400 Body weight 61.[address] Misbah Elkins MD Work Phone: 0(256)751-100337 [place] [address] 07-07-2025 01:15-0400 Body temperature 97.9 [degF] Dr. Misbah Elkins MD Work Phone: 9(836)642-540537 [place] [address] 07-07-2025 01:15-0400 Diastolic blood pressure 62 mm[Hg] Dr. Misbah Elkins MD Work Phone: 7(731)106-568837 [place] [address] 07-07-2025 01:15-0400 Heart rate 88 /min Dr. Misbah Elkins MD Work Phone: 4(433)315-135737 [place] [address] 07-07-2025 01:15-0400 Respiratory rate 14 /min Dr. Misbah Elkins MD Work Phone: 6(267)478-453237 [place] [address] 07-07-2025 01:15-0400 SaO2% (BldA) [Mass fraction] 95 % Dr. Misbah Elkins MD Work Phone: 7(716)633-427637 [place] [address] 07-07-2025 01:15-0400 Systolic blood pressure 155 mm[Hg] Dr. Misbah Elkins MD Work Phone: 6(400)381-361337 [place] [address] 07-06-2025 19:41-0400 Body mass index (BMI) [Ratio] 22.8 kg/m2 Dr. Misbah Elkins MD Work Phone: 2(026)853-666637 [place] [address] 07-06-2025 19:41-0400 Body weight 58.[address] Misbah Elkins MD Work Phone: 6(982)382-531337 [place] [address] 07-06-2025 12:15-0400 Body temperature 97 [degF] Dr. Misbah Elkins MD Work Phone: 3(565)716-515637 [place] [address] 07-06-2025 12:15-0400 Diastolic blood pressure 75 mm[Hg] Dr. Misbah Elkins MD Work Phone: 6(728)616-516537 [place] [address] 07-06-2025 12:15-0400 Heart rate 86 /min Dr. Misbah Elkins MD Work Phone: 2(650)480-641737 [place] [address] 07-06-2025 12:15-0400 Inhaled oxygen flow rate 5 L/min Dr. Misbah Elkins MD Work Phone: 3(911)163-126437 [place] [address] 07-06-2025 12:15-0400 Respiratory rate 19 /min Dr. Misbah Elkins MD Work Phone: [facility] 07-06-2025 12:15-0400 SaO2% (BldA) [Mass fraction] 95 % Dr. Misbah Elkins MD Work Phone: [facility] 07-06-2025 12:15-0400 Systolic blood pressure 176 mm[Hg] Dr. Misbah Elkins MD Work Phone: [facility] 07-06-2025 09:47-0400 Body mass index (BMI) [Ratio] 23.6 kg/m2 Dr. Misbah Elkins MD Work Phone: [facility] 07-06-2025 09:47-0400 Body weight 60.[address] Misbah Elkins MD Work Phone: [facility] 05-31-2025 10:39-0400 Body mass index (BMI) [Ratio] 20.63 kg/m2 Soila Older SALES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 Phone: [facility] 05-31-2025 10:39-0400 Body weight 56.25 kg Soila Older SALES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 Phone: [facility] 05-31-2025 10:39-0400 Diastolic blood pressure 80 mm[Hg] Soila Older SALES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 Phone: [facility] 05-31-2025 10:39-0400 Heart rate 78 /min Soila Older SALES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 Phone: [facility] 05-31-2025 10:39-0400 Respiratory rate 16 /min Soila Older SALES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 Phone: [facility] 05-31-2025 10:39-0400 SaO2% (BldA) [Mass fraction] 95 % Soila Older SALES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 Phone: [facility] 05-31-2025 10:39-0400 Systolic blood pressure 128 mm[Hg] Soila Older SALES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 Phone: [facility] 05-24-2025 20:55-0400 Body temperature 98 [degF] Dr. Misbah Elkins MD Work Phone: 9(460)655-365337 [place] [address] 05-24-2025 20:55-0400 Diastolic blood pressure 92 mm[Hg] Dr. Misbah Elkins MD Work Phone: 1(824)822-011137 [place] [address] 05-24-2025 20:55-0400 Heart rate 104 /min Dr. Misbah Elkins MD Work Phone: 8(291)656-635037 [place] [address] 05-24-2025 20:55-0400 Respiratory rate 18 /min Dr. Misbah Elkins MD Work Phone: 8(390)831-248937 [place] [address] 05-24-2025 20:55-0400 SaO2% (BldA) [Mass fraction] 94 % Dr. Misbah Elkins MD Work Phone: 7(432)745-642737 [place] [address] 05-24-2025 20:55-0400 Systolic blood pressure 143 mm[Hg] Dr. Misbah Elkins MD Work Phone: 4(621)949-081637 [place] [address] 05-24-2025 19:54-0400 Inhaled oxygen flow rate 2 L/min Dr. Misbah Elkins MD Work Phone: 6(515)491-882537 [place] [address] 05-24-2025 19:41-0400 Body height 160.[address] Misbah Elkins MD Work Phone: 1(438)896-248537 [place] [address] 05-24-2025 19:41-0400 Body mass index (BMI) [Ratio] 24 kg/m2 Dr. Misbah Elkins MD Work Phone: 8(474)465-838537 [place] [address] 05-24-2025 19:41-0400 Body weight 61.[address] Misbah Elkins MD Work Phone: 1(784)527-821037 [place] [address] 05-24-2025 08:44-0400 Body mass index (BMI) [Ratio] 21.6 kg/m2 Dr. Misbah Elkins MD Work Phone: 4(020)484-703337 [place] [address] 05-24-2025 08:44-0400 Body temperature 97.2 [degF] Dr. Misbah Elkins MD Work Phone: 2(304)424-016237 [place] [address] 05-24-2025 08:44-0400 Body weight 55.[address] Misbah Elkins MD Work Phone: 8(523)895-684437 [place] [address] 05-24-2025 08:44-0400 Diastolic blood pressure 74 mm[Hg] Dr. Misbah Elkins MD Work Phone: 3(023)609-959737 [place] [address] 05-24-2025 08:44-0400 Heart rate 102 /min Dr. Misbah Elkins MD Work Phone: 6(223)860-706237 [place] [address] 05-24-2025 08:44-0400 Inhaled oxygen flow rate 5 L/min Dr. Misbah Elkins MD Work Phone: 6(715)965-735237 [place] [address] 05-24-2025 08:44-0400 Respiratory rate 18 /min Dr. Misbah Elkins MD Work Phone: 9(294)754-256137 [place] [address] 05-24-2025 08:44-0400 SaO2% (BldA) [Mass fraction] 96 % Dr. Misbah Elkins MD Work Phone: 5(636)289-486637 [place] [address] 05-24-2025 08:44-0400 Systolic blood pressure 102 mm[Hg] Dr. Misbah Elkins MD Work Phone: 2(756)172-930937 [place] [address] 05-10-2025 23:09-0400 Body temperature 98 [degF] Dr. Misbah Elkins MD Work Phone: 9(078)612-905037 [place] [address] 05-10-2025 23:09-0400 Diastolic blood pressure 66 mm[Hg] Dr. Misbah Elkins MD Work Phone: 2(264)215-350437 [place] [address] 05-10-2025 23:09-0400 Heart rate 67 /min Dr. Misbah Elkins MD Work Phone: 3(394)253-816737 [place] [address] 05-10-2025 23:09-0400 Respiratory rate 16 /min Dr. Misbah Elkins MD Work Phone: 5(505)067-011937 [place] [address] 05-10-2025 23:09-0400 SaO2% (BldA) [Mass fraction] 99 % Dr. Misbah Elkins MD Work Phone: 9(096)569-397137 [place] [address] 05-10-2025 23:09-0400 Systolic blood pressure 120 mm[Hg] Dr. Misbah Elkins MD Work Phone: 5(012)559-374179 [place] [address] 05-10-2025 22:31-0400 Inhaled oxygen flow rate 4 L/min Dr. Misbah Elkins MD Work Phone: 7(934)837-676037 [place] [address] 05-10-2025 20:32-0400 Body height 160.[address] Misbah Elkins MD Work Phone: 8(410)719-465737 [place] [address] 05-10-2025 20:32-0400 Body mass index (BMI) [Ratio] 23.6 kg/m2 Dr. Misbah Elkins MD Work Phone: 3(863)519-006737 [place] [address] 05-10-2025 20:32-0400 Body weight 60.[address] Misbah Elkins MD Work Phone: 0(865)617-204937 [place] [address] 04-25-2025 15:59-0400 Body mass index (BMI) [Ratio] 20.47 kg/m2 Misbah Elkins MD Work Phone: 2(507)450-217038 [place] [address] 04-25-2025 15:59-0400 Body weight 55.79 kg Misbah Elkins MD Work Phone: 5(556)506-445638 [place] [address] 04-25-2025 15:59-0400 Diastolic blood pressure 84 mm[Hg] Misbah Elkins MD Work Phone: 2(640)553-079438 [place] [address] 04-25-2025 15:59-0400 Heart rate 104 /min Misbah Elkins MD Work Phone: 5(372)722-266238 [place] [address] 04-25-2025 15:59-0400 Respiratory rate 18 /min Misbah Elkins MD Work Phone: [facility] 04-25-2025 15:59-0400 SaO2% (BldA) [Mass fraction] 92 % Misbah Elkins MD Work Phone: [facility] Comment on above: 5 L/min 04-25-2025 15:59-0400 Systolic blood pressure 116 mm[Hg] Misbah Elkins MD Work Phone: 1(139)736-971238 [place] [address] 04-19-2025 12:55-0400 Heart rate 81 /min Dr. Misbah Elkins MD Work Phone: 4(824)681-113137 [place] [address] 04-19-2025 12:55-0400 Respiratory rate 18 /min Dr. Misbah Elkins MD Work Phone: 5(204)005-514837 [place] [address] 04-19-2025 08:40-0400 Body temperature 98.8 [degF] Dr. Misbah Elkins MD Work Phone: 5(167)876-004537 [place] [address] 04-19-2025 08:40-0400 Diastolic blood pressure 77 mm[Hg] Dr. Misbah Elkins MD Work Phone: 6(325)595-589137 [place] [address] 04-19-2025 08:40-0400 Inhaled oxygen flow rate 4 L/min Dr. Misbah Elkins MD Work Phone: 2(634)609-559237 [place] [address] 04-19-2025 08:40-0400 SaO2% (BldA) [Mass fraction] 97 % Dr. Misbah Elkins MD Work Phone: 4(130)370-038037 [place] [address] 04-19-2025 08:40-0400 Systolic blood pressure 102 mm[Hg] Dr. Misbah Elkins MD Work Phone: 8(625)363-181837 [place] [address] 04-19-2025 07:56-0400 Body mass index (BMI) [Ratio] 23.7 kg/m2 Dr. Misbah Elkins MD Work Phone: 0(641)201-683537 [place] [address] 04-19-2025 07:56-0400 Body weight 60.[address] Misbah Elkins MD Work Phone: 1(574)348-660237 [place] [address] 04-17-2025 14:06-0400 Body height 160.[address] Misbah Elkins MD Work Phone: 2(211)134-667037 [place] [address] 04-16-2025 00:57-0400 Body temperature 98.7 [degF] Dr. Misbah Elkins MD Work Phone: 4(773)223-013837 [place] [address] 04-16-2025 00:57-0400 Diastolic blood pressure 67 mm[Hg] Dr. Misbah Elkins MD Work Phone: 2(259)540-323337 [place] [address] 04-16-2025 00:57-0400 Heart rate 91 /min Dr. Misbah Elkins MD Work Phone: 5(691)345-125837 [place] [address] 04-16-2025 00:57-0400 Inhaled oxygen flow rate 4 L/min Dr. Misbah Elkins MD Work Phone: 9(908)686-697637 [place] [address] 04-16-2025 00:57-0400 Respiratory rate 18 /min Dr. Misbah Elkins MD Work Phone: 2(947)819-903137 [place] [address] 04-16-2025 00:57-0400 SaO2% (BldA) [Mass fraction] 100 % Dr. Misbah Elkins MD Work Phone: 2(141)365-081737 [place] [address] 04-16-2025 00:57-0400 Systolic blood pressure 168 mm[Hg] Dr. Misbah Elkins MD Work Phone: 2(207)623-215137 [place] [address] 04-15-2025 22:49-0400 Body height 160.[address] Misbah Elkins MD Work Phone: 5(512)053-436237 [place] [address] 04-15-2025 22:49-0400 Body mass index (BMI) [Ratio] 22.4 kg/m2 Dr. Misbah Elkins MD Work Phone: 3(769)032-006537 [place] [address] 04-15-2025 22:49-0400 Body weight 57.[address] Misbah Elkins MD Work Phone: 9(412)458-400137 [place] [address] 04-10-2025 13:37-0400 Body mass index (BMI) [Ratio] 20.54 kg/m2 Nicolas Greer SALES MARKETING.[employer] Work Phone: 8(837)628-182138 [place] [address] 04-10-2025 13:37-0400 Body weight 56 kg Nicolas Hector SALES MARKETING.[employer] Work Phone: [facility] 04-10-2025 13:37-0400 Diastolic blood pressure 82 mm[Hg] Nicolas Greer SALES MARKETING.[employer] Work Phone: [facility] 04-10-2025 13:37-0400 Heart rate 100 /min Nicolas Greer APRN.[employer] Work Phone: [facility] 04-10-2025 13:37-0400 Respiratory rate 16 /min Nicolas Greer SALES MARKETING.[employer] Work Phone: [facility] 04-10-2025 13:37-0400 SaO2% (BldA) [Mass fraction] 99 % Nicolas Greer SALES MARKETING.[employer] Work Phone: [facility] 04-10-2025 13:37-0400 Systolic blood pressure 102 mm[Hg] Nicolas Greer SALES MARKETING.[employer] Work Phone: [facility] 04-10-2025 07:55-0400 Body height 160.[address] Misbah Elkins MD Work Phone: 7(016)607-919979 [place] [address] 04-10-2025 07:55-0400 Body mass index (BMI) [Ratio] 21.7 kg/m2 Dr. Misbah Elkins MD Work Phone: 6(868)580-996937 [place] [address] 04-10-2025 07:55-0400 Body temperature 97.4 [degF] Dr. Misbah Elkins MD Work Phone: 9(092)949-719837 [place] [address] 04-10-2025 07:55-0400 Body weight 55.[address] Misbah Elkins MD Work Phone: 6(198)109-203679 [place] [address] 04-10-2025 07:55-0400 Diastolic blood pressure 71 mm[Hg] Dr. Misbah Elkins MD Work Phone: 7(007)778-105179 [place] [address] 04-10-2025 07:55-0400 Heart rate 103 /min Dr. Misbah Elkins MD Work Phone: 0(121)128-028079 [place] [address] 04-10-2025 07:55-0400 Inhaled oxygen flow rate 3 L/min Dr. Misbah Elkins MD Work Phone: 3(330)122-503179 [place] [address] 04-10-2025 07:55-0400 Respiratory rate 16 /min Dr. Misbah Elkins MD Work Phone: 1(483)763-337579 [place] [address] 04-10-2025 07:55-0400 SaO2% (BldA) [Mass fraction] 95 % Dr. Misbah Elkins MD Work Phone: 2(849)745-791237 [place] [address] 04-10-2025 07:55-0400 Systolic blood pressure 101 mm[Hg] Dr. Misbah Elkins MD Work Phone: 6(103)036-739337 [place] [address] 03-15-2025 21:00-0400 Diastolic blood pressure 63 mm[Hg] Dr. Misbah Elkins MD Work Phone: 5(964)008-212637 [place] [address] 03-15-2025 21:00-0400 Heart rate 105 /min Dr. Misbah Elkins MD Work Phone: 6(191)511-251837 [place] [address] 03-15-2025 21:00-0400 Inhaled oxygen concentration 90 % Dr. Misbah Elkins MD Work Phone: 1(939)351-488137 [place] [address] 03-15-2025 21:00-0400 Respiratory rate 16 /min Dr. Misbah Elkins MD Work Phone: 4(923)367-005837 [place] [address] 03-15-2025 21:00-0400 SaO2% (BldA) [Mass fraction] 96 % Dr. Misbah Elkins MD Work Phone: 3(669)221-976437 [place] [address] 03-15-2025 21:00-0400 Systolic blood pressure 79 mm[Hg] Dr. Misbah Elkins MD Work Phone: 2(338)073-833537 [place] [address] 03-15-2025 12:00-0400 Body temperature 97.8 [degF] Dr. Misbah Elkins MD Work Phone: 1(128)072-392737 [place] [address] 03-15-2025 01:34-0400 Inhaled oxygen flow rate 60 L/min Dr. Misbah Elkins MD Work Phone: 4(343)912-458437 [place] [address] 03-14-2025 14:24-0400 Body height 160.[address] Misbah Elkins MD Work Phone: 4(001)223-138637 [place] [address] 03-14-2025 14:24-0400 Body weight [address] Misbah Elkins MD Work Phone: 1(206)686-417737 [place] [address] 03-14-2025 00:37-0400 Body mass index (BMI) [Ratio] 25 kg/m2 Dr. Misbah Elkins MD Work Phone: 0(329)871-727437 [place] [address] 03-13-2025 23:24-0400 Body temperature 98.7 [degF] Dr. Misbah Elkins MD Work Phone: 8(503)409-058037 [place] [address] 03-13-2025 23:24-0400 Diastolic blood pressure 61 mm[Hg] Dr. Misbah Elkins MD Work Phone: 0(898)000-500337 [place] [address] 03-13-2025 23:24-0400 Heart rate 106 /min Dr. Misbah Elkins MD Work Phone: 0(134)774-291637 [place] [address] 03-13-2025 23:24-0400 Respiratory rate 17 /min Dr. Misbah Elkins MD Work Phone: 8(062)382-636237 [place] [address] 03-13-2025 23:24-0400 SaO2% (BldA) [Mass fraction] 87 % Dr. Misbah Elkins MD Work Phone: 4(318)200-839137 [place] [address] 03-13-2025 23:24-0400 Systolic blood pressure 119 mm[Hg] Dr. Misbah Elkins MD Work Phone: 4(566)726-446037 [place] [address] 03-13-2025 23:00-0400 Inhaled oxygen flow rate 8 L/min Dr. Misbah Elkins MD Work Phone: 1(143)792-443537 [place] [address] 03-13-2025 11:02-0400 Body height 160.[address] Misbah Elkins MD Work Phone: 5(867)765-294737 [place] [address] 03-13-2025 11:02-0400 Body mass index (BMI) [Ratio] 23.3 kg/m2 Dr. Misbah Elkins MD Work Phone: 4(411)267-700837 [place] [address] 03-13-2025 11:02-0400 Body weight 59.[address] Misbah Elkins MD Work Phone: 8(048)056-184837 [place] [address] 03-10-2025 17:00-0400 Diastolic blood pressure 62 mm[Hg] Jane Farrell MD Work Phone: [facility] 03-10-2025 17:00-0400 Heart rate 88 /min Jane Farrell MD Work Phone: [facility] 03-10-2025 17:00-0400 Respiratory rate 18 /min Jane Farrell MD Work Phone: [facility] 03-10-2025 17:00-0400 SaO2% (BldA) [Mass fraction] 94 % Jane Farrell MD Work Phone: [facility] 03-10-2025 17:00-0400 Systolic blood pressure 94 mm[Hg] Jane Farrell MD Work Phone: [facility] 03-10-2025 15:20-0400 Body temperature 97.5 [degF] Jane Farrell MD Work Phone: [facility] 03-10-2025 12:26-0400 Body height 160 cm Jane Farrell MD Work Phone: [facility] 03-10-2025 12:26-0400 Body mass index (BMI) [Ratio] 23.03 kg/m2 Jane Farrell MD Work Phone: [facility] 03-10-2025 12:26-0400 Body weight 58.97 kg Jane Farrell MD Work Phone: [facility] 02-26-2025 15:48-0400 Body temperature 98.7 [degF] Dr. Misbah Elkins MD Work Phone: [facility] 02-26-2025 15:48-0400 Diastolic blood pressure 78 mm[Hg] Dr. Misbah Elkins MD Work Phone: [facility] 02-26-2025 15:48-0400 Heart rate 67 /min Dr. Misbah Elkins MD Work Phone: [facility] 02-26-2025 15:48-0400 Respiratory rate 12 /min Dr. Misbah Elkins MD Work Phone: [facility] 02-26-2025 15:48-0400 SaO2% (BldA) [Mass fraction] 94 % Dr. Misbah Elkins MD Work Phone: 5(309)622-785537 [place] [address] 02-26-2025 15:48-0400 Systolic blood pressure 145 mm[Hg] Dr. Misbah Elkins MD Work Phone: 8(323)652-057137 [place] [address] 02-26-2025 15:07-0400 Inhaled oxygen flow rate 5 L/min Dr. Misbah Elkins MD Work Phone: 6(581)322-792937 [place] [address] 02-26-2025 13:57-0400 Body height 160.[address] Misbah Elkins MD Work Phone: 3(586)453-253837 [place] [address] 02-26-2025 13:57-0400 Body mass index (BMI) [Ratio] 23.9 kg/m2 Dr. Misbah Elkins MD Work Phone: 9(862)593-754537 [place] [address] 02-26-2025 13:57-0400 Body weight 61.[address] Misbah Elkins MD Work Phone: 0(038)062-690537 [place] [address] 02-08-2025 08:20-0400 Body mass index (BMI) [Ratio] 23.7 kg/m2 Dr. Misbah Elkins MD Work Phone: 4(046)808-092937 [place] [address] 02-08-2025 08:20-0400 Body temperature 97.6 [degF] Dr. Misbah Elkins MD Work Phone: 7(257)569-768237 [place] [address] 02-08-2025 08:20-0400 Body weight 60.[address] iMsbah Elkins MD Work Phone: 1(138)547-698437 [place] [address] 02-08-2025 08:20-0400 Diastolic blood pressure 67 mm[Hg] Dr. Misbah Elkins MD Work Phone: 1(310)348-728037 [place] [address] 02-08-2025 08:20-0400 Heart rate 87 /min Dr. Misbah Elkins MD Work Phone: 5(793)815-115937 [place] [address] 02-08-2025 08:20-0400 Inhaled oxygen flow rate 5 L/min Dr. Misbah Elkins MD Work Phone: 4(200)194-854437 [place] [address] 02-08-2025 08:20-0400 Respiratory rate 20 /min Dr. Misbah Elkins MD Work Phone: 4(335)956-476937 [place] [address] 02-08-2025 08:20-0400 SaO2% (BldA) [Mass fraction] 92 % Dr. Misbah Elkins MD Work Phone: 2(937)885-850037 [place] [address] 02-08-2025 08:20-0400 Systolic blood pressure 116 mm[Hg] Dr. Misbah Elkins MD Work Phone: 1(678)146-491237 [place] [address] 01-27-2025 12:55-0400 Diastolic blood pressure 76 mm[Hg] Dr. Misbah Elkins MD Work Phone: 9(972)495-488937 [place] [address] 01-27-2025 12:55-0400 Heart rate 93 /min Dr. Misbah Elkins MD Work Phone: 5(802)142-688137 [place] [address] 01-27-2025 12:55-0400 Respiratory rate 18 /min Dr. Misbah Elkins MD Work Phone: 7(919)925-339637 [place] [address] 01-27-2025 12:55-0400 SaO2% (BldA) [Mass fraction] 97 % Dr. Misbah Elkins MD Work Phone: 9(188)460-490237 [place] [address] 01-27-2025 12:55-0400 Systolic blood pressure 162 mm[Hg] Dr. Misbah Elkins MD Work Phone: 8(417)194-515837 [place] [address] 01-27-2025 12:00-0400 Body temperature 97.8 [degF] Dr. Misbah Elkins MD Work Phone: 4(051)648-012537 [place] [address] 01-27-2025 12:00-0400 Inhaled oxygen flow rate 5 L/min Dr. Misbah Elkins MD Work Phone: 1(065)434-104537 [place] [address] 01-27-2025 10:14-0400 Body height 160.[address] Misbah Elkins MD Work Phone: 5(008)846-291637 [place] [address] 01-27-2025 10:14-0400 Body mass index (BMI) [Ratio] 23.5 kg/m2 Dr. Misbah Elkins MD Work Phone: 9(746)950-452737 [place] [address] 01-27-2025 10:14-0400 Body weight 60.[address] Misbah Elkins MD Work Phone: [facility] 01-13-2025 10:51-0400 Body mass index (BMI) [Ratio] 24.45 kg/m2 Soila Older 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 Phone: [facility] 01-13-2025 10:51-0400 Body weight 62.6 kg Soila Older 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 Phone: [facility] 01-13-2025 10:51-0400 Diastolic blood pressure 60 mm[Hg] Soila Older 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 Phone: [facility] 01-13-2025 10:51-0400 Heart rate 88 /min Soila Older 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 Phone: [facility] 01-13-2025 10:51-0400 Respiratory rate 16 /min Soila Older 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 Phone: [facility] 01-13-2025 10:51-0400 SaO2% (BldA) [Mass fraction] 85 % Soila Older 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 Phone: [facility] 01-13-2025 10:51-0400 Systolic blood pressure 108 mm[Hg] Soila Older 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 Phone: [facility] 01-01-2025 22:15-0400 Body temperature 97.9 [degF] Dr. Misbah Elkins MD Work Phone: [facility] 01-01-2025 22:15-0400 Diastolic blood pressure 70 mm[Hg] Dr. Misbah Elkins MD Work Phone: [facility] 01-01-2025 22:15-0400 Heart rate 108 /min Dr. Misbah Elkins MD Work Phone: [facility] 01-01-2025 22:15-0400 Respiratory rate 24 /min Dr. Misbah Elkins MD Work Phone: [facility] 01-01-2025 22:15-0400 SaO2% (BldA) [Mass fraction] 96 % Dr. Misbah Elkins MD Work Phone: 7(332)300-172637 [place] [address] 01-01-2025 22:15-0400 Systolic blood pressure 104 mm[Hg] Dr. Misbah Elkins MD Work Phone: 0(516)919-134737 [place] [address] 01-01-2025 21:01-0400 Inhaled oxygen flow rate 5 L/min Dr. Misbah Elkins MD Work Phone: 1(921)126-285637 [place] [address] 01-01-2025 20:52-0400 Body mass index (BMI) [Ratio] 24.7 kg/m2 Dr. Misbah Elkins MD Work Phone: 4(511)989-750137 [place] [address] 01-01-2025 20:52-0400 Body weight 63.[address] Misbah Elkins MD Work Phone: 4(386)736-680437 [place] [address] 01-01-2025 20:27-0400 Body height 160.[address] Misbah Elkins MD Work Phone: 2(175)039-763237 [place] [address] 12-24-2024 21:38-0400 Body temperature 97.8 [degF] Dr. Misbah Elkins MD Work Phone: 8(513)990-092437 [place] [address] 12-24-2024 21:38-0400 Diastolic blood pressure 89 mm[Hg] Dr. Misbah Elkins MD Work Phone: 1(054)149-754337 [place] [address] 12-24-2024 21:38-0400 Heart rate 98 /min Dr. Misbah Elkins MD Work Phone: 8(342)780-428037 [place] [address] 12-24-2024 21:38-0400 Respiratory rate 24 /min Dr. Misbah Elkins MD Work Phone: 7(694)140-696037 [place] [address] 12-24-2024 21:38-0400 SaO2% (BldA) [Mass fraction] 98 % Dr. Misbah Elkins MD Work Phone: 0(991)944-638737 [place] [address] 12-24-2024 21:38-0400 Systolic blood pressure 148 mm[Hg] Dr. Misbah Elkins MD Work Phone: 5(498)016-034637 [place] [address] 12-24-2024 20:46-0400 Inhaled oxygen flow rate 5 L/min Dr. Misbah Elkins MD Work Phone: 9(419)857-360437 [place] [address] 12-24-2024 19:39-0400 Body height 160.[address] Misbah Elkins MD Work Phone: 9(519)595-970637 [place] [address] 12-24-2024 19:39-0400 Body mass index (BMI) [Ratio] 24.3 kg/m2 Dr. Misbah Elkins MD Work Phone: 9(281)636-426137 [place] [address] 12-24-2024 19:39-0400 Body weight 62.[address] Misbah Eklins MD Work Phone: 1(382)645-747837 [place] [address] 12-23-2024 08:11-0400 Body mass index (BMI) [Ratio] 24.6 kg/m2 Dr. Misbah Elkins MD Work Phone: 9(169)296-897637 [place] [address] 12-23-2024 08:11-0400 Body temperature 97.4 [degF] Dr. Misbah Elkins MD Work Phone: 8(975)981-896437 [place] [address] 12-23-2024 08:11-0400 Body weight 63.[address] Misbah Elkins MD Work Phone: 5(549)006-716437 [place] [address] 12-23-2024 08:11-0400 Diastolic blood pressure 73 mm[Hg] Dr. Misbah Elkins MD Work Phone: 6(215)867-699037 [place] [address] 12-23-2024 08:11-0400 Heart rate 97 /min Dr. Misbah Elkins MD Work Phone: 5(136)594-939337 [place] [address] 12-23-2024 08:11-0400 Inhaled oxygen flow rate 3 L/min Dr. Misbah Elkins MD Work Phone: 0(842)240-353237 [place] [address] 12-23-2024 08:11-0400 Respiratory rate 22 /min Dr. Misbah Elkins MD Work Phone: 5(936)050-311937 [place] [address] 12-23-2024 08:11-0400 SaO2% (BldA) [Mass fraction] 90 % Dr. Misbah Elkins MD Work Phone: [facility] 12-23-2024 08:11-0400 Systolic blood pressure 153 mm[Hg] Dr. Misbah Elkins MD Work Phone: [facility] 12-19-2024 14:49-0400 Body mass index (BMI) [Ratio] 24.27 kg/m2 Tara Youngblood 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 Phone: [facility] 12-19-2024 14:49-0400 Body weight 62.14 kg Tara Youngblood 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 Phone: [facility] 12-19-2024 14:49-0400 Diastolic blood pressure 62 mm[Hg] Tara Youngblood [employer]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 Phone: [facility] 12-19-2024 14:49-0400 Heart rate 103 /min Tara Youngblood 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 Phone: [facility] 12-19-2024 14:49-0400 Respiratory rate 16 /min Tara Youngblood [employer]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 Phone: [facility] 12-19-2024 14:49-0400 SaO2% (BldA) [Mass fraction] 93 % Tara Youngblood 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 Phone: [facility] Comment on above: on 4 liters 12-19-2024 14:49-0400 Systolic blood pressure 118 mm[Hg] Tara Youngblood [employer]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 Phone: [facility] 12-12-2024 15:22-0400 Heart rate 87 /min Dr. Misbah Elkins MD Work Phone: [facility] 12-12-2024 15:22-0400 Respiratory rate 18 /min Dr. Misbah Elkins MD Work Phone: [facility] 12-12-2024 14:00-0400 Inhaled oxygen flow rate 3 L/min Dr. Misbah Elkins MD Work Phone: [facility] 12-12-2024 14:00-0400 SaO2% (BldA) [Mass fraction] 93 % Dr. Misbah Elkins MD Work Phone: 8(601)635-078337 [place] [address] 12-12-2024 13:21-0400 Body temperature 99.1 [degF] Dr. Misbah Elkins MD Work Phone: 8(254)584-881037 [place] [address] 12-12-2024 13:21-0400 Diastolic blood pressure 63 mm[Hg] Dr. Misbah Elkins MD Work Phone: 1(073)183-081137 [place] [address] 12-12-2024 13:21-0400 Systolic blood pressure 129 mm[Hg] Dr. Misbah Elkins MD Work Phone: 3(828)264-228937 [place] [address] 12-12-2024 12:07-0400 Inhaled oxygen concentration 56 % Dr. Misbah Elkins MD Work Phone: 5(953)050-551137 [place] [address] 12-12-2024 05:02-0400 Body mass index (BMI) [Ratio] 23.7 kg/m2 Dr. Misbah Elkins MD Work Phone: 3(819)931-488137 [place] [address] 12-12-2024 05:02-0400 Body weight 60.[address] Misbah Elkins MD Work Phone: 4(205)061-194737 [place] [address] 12-11-2024 13:34-0400 Body height 160.[address] Misbah Elkins MD Work Phone: 6(317)570-204637 [place] [address] 12-08-2024 07:52-0400 Inhaled oxygen flow rate 13 L/min Dr. Misbah Elkins MD Work Phone: 3(217)909-788637 [place] [address] 12-08-2024 07:52-0400 SaO2% (BldA) [Mass fraction] 92 % Dr. Misbah Elkins MD Work Phone: 9(608)383-258937 [place] [address] 12-08-2024 07:16-0400 Heart rate 79 /min Dr. Misbah Elkins MD Work Phone: 7(439)173-115337 [place] [address] 12-08-2024 07:16-0400 Respiratory rate 20 /min Dr. Misbah Elkins MD Work Phone: 7(528)399-198837 [place] [address] 12-08-2024 06:00-0400 Body mass index (BMI) [Ratio] 23.8 kg/m2 Dr. Misbah Elkins MD Work Phone: 6(798)526-316037 [place] [address] 12-08-2024 06:00-0400 Body weight 61.[address] Misbah Elkins MD Work Phone: 2(573)416-427537 [place] [address] 12-08-2024 04:47-0400 Body temperature 97.8 [degF] Dr. Misbah Elkins MD Work Phone: 8(864)957-713437 [place] [address] 12-08-2024 04:47-0400 Diastolic blood pressure 59 mm[Hg] Dr. Misbah Elkins MD Work Phone: 7(636)713-071737 [place] [address] 12-08-2024 04:47-0400 Systolic blood pressure 106 mm[Hg] Dr. Misbah Elkins MD Work Phone: 8(581)751-627637 [place] [address] 12-07-2024 08:56-0400 Inhaled oxygen concentration 56 % Dr. Misbah Elkins MD Work Phone: 3(991)346-755837 [place] [address] 12-06-2024 12:53-0400 Body height 160.[address] Misbah Elkins MD Work Phone: 6(782)926-923437 [place] [address] 12-04-2024 19:00-0400 Heart rate 101 /min Dr. Misbah Elkins MD Work Phone: 4(165)569-514437 [place] [address] 12-04-2024 19:00-0400 Respiratory rate 23 /min Dr. Misbah Elkins MD Work Phone: 4(784)969-123137 [place] [address] 12-04-2024 19:00-0400 SaO2% (BldA) [Mass fraction] 94 % Dr. Misbah Elkins MD Work Phone: 4(264)775-611837 [place] [address] 12-04-2024 18:06-0400 Body temperature 97.7 [degF] Dr. Misbah Elkins MD Work Phone: 8(533)576-055637 [place] [address] 12-04-2024 18:06-0400 Diastolic blood pressure 93 mm[Hg] Dr. Misbah Elkins MD Work Phone: [facility] 12-04-2024 18:06-0400 Systolic blood pressure 129 mm[Hg] Dr. Misbah Elkins MD Work Phone: [facility] 12-04-2024 18:00-0400 Inhaled oxygen flow rate 5 L/min Dr. Misbah Elkins MD Work Phone: [facility] 12-04-2024 15:51-0400 Body height 160.[address] Misbah Elkins MD Work Phone: [facility] 12-04-2024 15:51-0400 Body mass index (BMI) [Ratio] 23 kg/m2 Dr. Misbah Elkins MD Work Phone: [facility] 12-04-2024 15:51-0400 Body weight 58.[address] Misbah Elkins MD Work Phone: [facility] 12-01-2024 12:20-0500 Heart rate 90 /min Jane Farrell MD Work Phone: [facility] 12-01-2024 12:20-0500 Respiratory rate 16 /min Jane Farrell MD Work Phone: [facility] 12-01-2024 12:20-0500 SaO2% (BldA) [Mass fraction] 89 % Jane Farrell MD Work Phone: [facility] 12-01-2024 12:10-0500 Diastolic blood pressure 66 mm[Hg] Jane Farrell MD Work Phone: [facility] 12-01-2024 12:10-0500 Systolic blood pressure 97 mm[Hg] Jane Farrell MD Work Phone: [facility] 12-01-2024 10:46-0500 Body temperature 97.3 [degF] Jane Farrell MD Work Phone: [facility] 11-07-2024 14:03-0500 Body temperature 97.3 [degF] Misbah Elkins MD Work Phone: [facility] 11-07-2024 14:03-0500 Diastolic blood pressure 53 mm[Hg] Misbah Elkins MD Work Phone: [facility] 11-07-2024 14:03-0500 Heart rate 81 /min Misbah Elkins MD Work Phone: [facility] 11-07-2024 14:03-0500 Respiratory rate 20 /min Misbah Elkins MD Work Phone: [facility] 11-07-2024 14:03-0500 SaO2% (BldA) [Mass fraction] 93 % Misbah Elkins MD Work Phone: [facility] 11-07-2024 14:03-0500 Systolic blood pressure 83 mm[Hg] Misbah Elkins MD Work Phone: [facility] 11-02-2024 13:57-0500 Body height 160 cm Juan Nadeen [employer]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 Phone: [facility] 11-02-2024 13:57-0500 Body mass index (BMI) [Ratio] 24.45 kg/m2 Juan Nadeen SAL[employer]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 Phone: [facility] 11-02-2024 13:57-0500 Body weight 62.6 kg Juan Nadeen SAL[employer]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 Phone: [facility] 11-02-2024 13:57-0500 Diastolic blood pressure 71 mm[Hg] Juan Nadeen SAL[employer]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 Phone: [facility] 11-02-2024 13:57-0500 Heart rate 84 /min Juan Nadeen SAL[employer]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 Phone: [facility] 11-02-2024 13:57-0500 SaO2% (BldA) [Mass fraction] 97 % Juan Nadeen SAL[employer]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 Phone: [facility] Comment on above: 97 2L 11-02-2024 13:57-0500 Systolic blood pressure 140 mm[Hg] Juan Nadeen SALES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 Phone: [facility] 08-15-2024 11:31-0500 Body mass index (BMI) [Ratio] 25.15 kg/m2 Soila Older SAL[employer]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 Phone: [facility] 08-15-2024 11:31-0500 Body weight 64.41 kg Soila Older SAL[employer]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 Phone: [facility] 08-15-2024 11:31-0500 Diastolic blood pressure 78 mm[Hg] Soila Older SAL[employer]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 Phone: [facility] 08-15-2024 11:31-0500 Heart rate 80 /min Soila Older SAL[employer]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 Phone: [facility] 08-15-2024 11:31-0500 Respiratory rate 16 /min Soila Older SAL[employer]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 Phone: [facility] 08-15-2024 11:31-0500 SaO2% (BldA) [Mass fraction] 93 % Soila Older SAL[employer]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 Phone: [facility] 08-15-2024 11:31-0500 Systolic blood pressure 112 mm[Hg] Soila Older SAL[employer]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 Phone: [facility] 08-10-2024 16:58-0500 Body mass index (BMI) [Ratio] 25.15 kg/m2 Soila Older SAL[employer]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 Phone: [facility] 08-10-2024 16:58-0500 Body weight 64.41 kg Soila Older SAL[employer]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 Phone: [facility] 08-10-2024 16:58-0500 Diastolic blood pressure 80 mm[Hg] Soila Older SAL[employer]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 Phone: [facility] 08-10-2024 16:58-0500 Heart rate 96 /min Soila Older SAL[employer]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 Phone: [facility] 08-10-2024 16:58-0500 Respiratory rate 16 /min Soila Older SAL[employer]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 Phone: [facility] 08-10-2024 16:58-0500 SaO2% (BldA) [Mass fraction] 92 % Soila Older SAL[employer]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 Phone: [facility] 08-10-2024 16:58-0500 Systolic blood pressure 118 mm[Hg] Soila Older SAL[employer]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 Phone: [facility] 08-05-2024 15:36-0500 Body mass index (BMI) [Ratio] 25.38 kg/m2 Misbah Elkins MD Work Phone: [facility] 08-05-2024 15:36-0500 Body weight 65 kg Misbah Elkins MD Work Phone: [facility] 08-05-2024 15:36-0500 Diastolic blood pressure 72 mm[Hg] Misbah Elkins MD Work Phone: [facility] 08-05-2024 15:36-0500 Heart rate 91 /min Misbah Elkins MD Work Phone: [facility] 08-05-2024 15:36-0500 SaO2% (BldA) [Mass fraction] 95 % Misbah Elkins MD Work Phone: [facility] 08-05-2024 15:36-0500 Systolic blood pressure 118 mm[Hg] Misbah Elkins MD Work Phone: [facility] 05-18-2024 16:31-0400 Body mass index (BMI) [Ratio] 23.56 kg/m2 Misbah Elkins MD Work Phone: [facility] 05-18-2024 16:31-0400 Body weight 60.33 kg Misbah Elkins MD Work Phone: [facility] 05-18-2024 16:31-0400 Diastolic blood pressure 72 mm[Hg] Misbah Elkins MD Work Phone: [facility] 05-18-2024 16:31-0400 Heart rate 76 /min Misbah Elkins MD Work Phone: [facility] 05-18-2024 16:31-0400 Respiratory rate 16 /min Misbah Elkins MD Work Phone: [facility] 05-18-2024 16:31-0400 Systolic blood pressure 128 mm[Hg] Misbah Elkins MD Work Phone: [facility] 01-25-2024 14:02-0400 Body mass index (BMI) [Ratio] 24.45 kg/m2 Tara Youngblood SALES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 Phone: [facility] 01-25-2024 14:02-0400 Body temperature 99.19 [degF] Tara Youngblood SALES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 Phone: [facility] 01-25-2024 14:02-0400 Body weight 62.6 kg Tara Youngblood SALES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 Phone: [facility] 01-25-2024 14:02-0400 Diastolic blood pressure 70 mm[Hg] Tara Youngblood SALES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 Phone: [facility] 01-25-2024 14:02-0400 Heart rate 108 /min Tara Youngblood SALES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 Phone: [facility] 01-25-2024 14:02-0400 SaO2% (BldA) [Mass fraction] 95 % Tara Youngblood SALES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 Phone: [facility] Comment on above: 3L ID 01-25-2024 14:02-0400 Systolic blood pressure 170 mm[Hg] Tara Youngblood SALES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 Phone: [facility] 01-19-2024 23:56-0400 Body temperature 97.9 [degF] Dr. Víctor Huerta Work Phone: [facility] 01-19-2024 23:56-0400 Diastolic blood pressure 81 mm[Hg] Dr. Víctor Huerta Work Phone: [facility] 01-19-2024 23:56-0400 Heart rate 105 /min Dr. Víctor Huerta Work Phone: [facility] 01-19-2024 23:56-0400 Respiratory rate 20 /min Dr. Víctor Huerta Work Phone: [facility] 01-19-2024 23:56-0400 SaO2% (BldA) [Mass fraction] 95 % Dr. Víctor Huerta Work Phone: [facility] 01-19-2024 23:56-0400 Systolic blood pressure 174 mm[Hg] Dr. Víctor Huerta Work Phone: [facility] 01-19-2024 22:07-0400 Body height 160.[address] Víctor Huerta Work Phone: [facility] 01-19-2024 22:07-0400 Body mass index (BMI) [Ratio] 24.5 kg/m2 Dr. Víctor Huerta Work Phone: [facility] 01-19-2024 22:07-0400 Body weight 62.[address] Víctor Huerta Work Phone: [facility] 01-12-2024 11:30-0400 Heart rate 96 /min Anat Gutiérrez APRN.COMPANY MARKER Work Phone: [facility] 01-12-2024 11:08-0400 Body weight 61.69 kg Anat Gutiérrez APRN.COMPANY MARKER Work Phone: [facility] 01-12-2024 11:08-0400 Diastolic blood pressure 68 mm[Hg] Anat Gutiérrez SALES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 Phone: [facility] 01-12-2024 11:08-0400 Respiratory rate 18 /min Anat Gutiérrez APRN.COMPANY MARKER Work Phone: [facility] 01-12-2024 11:08-0400 SaO2% (BldA) [Mass fraction] 90 % Anat Gutiérrez APRN.COMPANY MARKER Work Phone: [facility] 01-12-2024 11:08-0400 Systolic blood pressure 96 mm[Hg] Anat Gutiérrez APRN.CNP Work Phone: [facility] 01-05-2024 11:24-0400 Body temperature 97.8 [degF] Dr. Víctor Huerta Work Phone: [facility] 01-05-2024 11:24-0400 Diastolic blood pressure 99 mm[Hg] Dr. Víctor Huerta Work Phone: [facility] 01-05-2024 11:24-0400 Heart rate 98 /min Dr. Víctor Huerta Work Phone: [facility] 01-05-2024 11:24-0400 Inhaled oxygen flow rate 2 L/min Dr. Víctor Huerta Work Phone: [facility] 01-05-2024 11:24-0400 Respiratory rate 18 /min Dr. Víctor Huerta Work Phone: [facility] 01-05-2024 11:24-0400 SaO2% (BldA) [Mass fraction] 92 % Dr. Víctor Huerta Work Phone: [facility] 01-05-2024 11:24-0400 Systolic blood pressure 155 mm[Hg] Dr. Víctor Huerta Work Phone: [facility] 01-05-2024 05:32-0400 Body mass index (BMI) [Ratio] 23.2 kg/m2 Dr. Víctor Huerta Work Phone: [facility] 01-05-2024 05:32-0400 Body weight 59.[address] Víctor Huerta Work Phone: [facility] 01-04-2024 11:11-0400 Body height 160.[address] Víctor Huerta Work Phone: [facility] 01-02-2024 22:48-0400 Body temperature 98.7 [degF] [facility] 01-02-2024 22:48-0400 Diastolic blood pressure 81 mm[Hg] [facility] 01-02-2024 22:48-0400 Heart rate 115 /min [facility] 01-02-2024 22:48-0400 Respiratory rate 21 /min [facility] 01-02-2024 22:48-0400 SaO2% (BldA) [Mass fraction] 93 % [facility] 01-02-2024 22:48-0400 Systolic blood pressure 102 mm[Hg] [facility] 01-02-2024 22:00-0400 Inhaled oxygen flow rate 2 L/min [facility] 01-02-2024 18:57-0400 Body height 160.02 cm [facility] 01-02-2024 18:57-0400 Body mass index (BMI) [Ratio] 23.9 kg/m2 [facility] 01-02-2024 18:57-0400 Body weight 61.23 kg [facility] 12-16-2023 14:13-0400 Body weight 61.05 kg Candie Denbow PA-C Work Phone: [facility] 12-16-2023 14:13-0400 Diastolic blood pressure 74 mm[Hg] Candie Denbow PA-C Work Phone: [facility] 12-16-2023 14:13-0400 Heart rate 130 /min Candie Denbow PA-C Work Phone: [facility] 12-16-2023 14:13-0400 Respiratory rate 18 /min Candie Denbow PA-C Work Phone: [facility] 12-16-2023 14:13-0400 SaO2% (BldA) [Mass fraction] 95 % Candie Denbow PA-C Work Phone: [facility] 12-16-2023 14:13-0400 Systolic blood pressure 124 mm[Hg] Candie Denbow PA-C Work Phone: [facility] 07-08-2023 20:38-0400 Diastolic blood pressure 68 mm[Hg] SERVICE COUNTER CASHIER-C SOILA EASTON Work Phone: [facility] 07-08-2023 20:38-0400 Respiratory rate 20 /min SERVICE COUNTER CASHIER-C SOILA OLDER Work Phone: 3(300)974-622479 [place] [address] 07-08-2023 20:38-0400 SaO2% (BldA) [Mass fraction] 97 % SERVICE COUNTER CASHIER-C SOILA OLDER Work Phone: 3(827)345-030479 [place] [address] 07-08-2023 20:38-0400 Systolic blood pressure 150 mm[Hg] SERVICE COUNTER CASHIER-C SOILA OLDER Work Phone: 9(869)177-646679 [place] [address] 07-08-2023 18:57-0400 Heart rate 103 /min SERVICE COUNTER CASHIER-C SOILA OLDER Work Phone: 9(569)545-063179 [place] [address] 07-08-2023 18:11-0400 Body height 160.02 cm SERVICE COUNTER CASHIER-C SOILA OLDER Work Phone: 4(711)285-761679 [place] [address] 07-08-2023 18:11-0400 Body mass index (BMI) [Ratio] 23.9 kg/m2 SERVICE COUNTER CASHIER-C SOILA OLDER Work Phone: 2(022)889-0040[address] [place] [address] 07-08-2023 18:11-0400 Body temperature 98.1 [degF] SERVICE COUNTER CASHIER-C SOILA OLDER Work Phone: 9(872)371-952979 [place] [address] 07-08-2023 18:11-0400 Body weight 61.23 kg SERVICE COUNTER CASHIER-C SOILA OLDER Work Phone: 1(305)622-755937 [place] [address] 06-30-2023 07:55-0400 Body mass index (BMI) [Ratio] 23.3 kg/m2 SERVICE COUNTER CASHIER-C SOILA OLDER Work Phone: 6(437)801-665537 [place] [address] 06-30-2023 07:55-0400 Body temperature 97.4 [degF] SERVICE COUNTER CASHIER-C SOILA OLDER Work Phone: 5(718)081-444237 [place] [address] 06-30-2023 07:55-0400 Body weight 59.87 kg SERVICE COUNTER CASHIER-C SOILA OLDER Work Phone: 4(058)442-665879 [place] [address] 06-30-2023 07:55-0400 Diastolic blood pressure 87 mm[Hg] SERVICE COUNTER CASHIER-C SOILA OLDER Work Phone: 7(384)125-863779 [place] [address] 06-30-2023 07:55-0400 Heart rate 98 /min SERVICE COUNTER CASHIER-C SOILA OLDER Work Phone: [facility] 06-30-2023 07:55-0400 Respiratory rate 20 /min SERVICE COUNTER CASHIER-C SOILA OLDER Work Phone: [facility] 06-30-2023 07:55-0400 SaO2% (BldA) [Mass fraction] 94 % SERVICE COUNTER CASHIER-C SOILA OLDER Work Phone: [facility] 06-30-2023 07:55-0400 Systolic blood pressure 150 mm[Hg] SERVICE COUNTER CASHIER-C SOILA OLDER Work Phone: [facility] 06-02-2023 15:01-0400 Body height 160.02 cm [facility] 06-02-2023 15:01-0400 Body mass index (BMI) [Ratio] 23 kg/m2 [facility] 06-02-2023 15:01-0400 Body temperature 97.2 [degF] [facility] 06-02-2023 15:01-0400 Body weight 58.96 kg [facility] 06-02-2023 15:01-0400 Diastolic blood pressure 99 mm[Hg] [facility] 06-02-2023 15:01-0400 Heart rate 100 /min [facility] 06-02-2023 15:01-0400 Respiratory rate 17 /min [facility] 06-02-2023 15:01-0400 SaO2% (BldA) [Mass fraction] 95 % [facility] 06-02-2023 15:01-0400 Systolic blood pressure 148 mm[Hg] [facility] 04-15-2023 12:39-0400 Body height 160 cm Candie Denbow PA-C Work Phone: [facility] 04-15-2023 12:39-0400 Body temperature 97.2 [degF] Candie Denbow PA-C Work Phone: [facility] 04-15-2023 12:39-0400 Body weight 59.42 kg Candie Denbow PA-C Work Phone: [facility] 04-15-2023 12:39-0400 Diastolic blood pressure 52 mm[Hg] Candie Denbow PA-C Work Phone: [facility] 04-15-2023 12:39-0400 Heart rate 104 /min Candie Denbow PA-C Work Phone: [facility] 04-15-2023 12:39-0400 Respiratory rate 16 /min Candie Denbow PA-C Work Phone: [facility] 04-15-2023 12:39-0400 SaO2% (BldA) [Mass fraction] 94 % Candie Denbow PA-C Work Phone: [facility] 04-15-2023 12:39-0400 Systolic blood pressure 104 mm[Hg] Candie Denbow PA-C Work Phone: [facility] 11-28-2022 13:00-0500 Body temperature 98.01 [degF] Soila Older SALES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 Phone: [facility] 11-28-2022 13:00-0500 Body weight 58.51 kg Soila Older SALES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 Phone: [facility] 11-28-2022 13:00-0500 Diastolic blood pressure 62 mm[Hg] Soila Older SALES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 Phone: [facility] 11-28-2022 13:00-0500 Heart rate 108 /min Soila Older SALES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 Phone: [facility] 11-28-2022 13:00-0500 Respiratory rate 16 /min Soila Older SALES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 Phone: [facility] 11-28-2022 13:00-0500 SaO2% (BldA) [Mass fraction] 96 % Soila Older SALES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 Phone: [facility] 11-28-2022 13:00-0500 Systolic blood pressure 98 mm[Hg] Soila Older SALES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 Phone: [facility] 11-26-2022 13:13-0500 Body temperature 98.8 [degF] Mariluz Teraner PA-C Work Phone: [facility] 11-26-2022 13:13-0500 Body weight 58.7 kg Mariluz Teraner PA-C Work Phone: [facility] 11-26-2022 13:13-0500 Diastolic blood pressure 63 mm[Hg] Mariluz Teraner PA-C Work Phone: [facility] 11-26-2022 13:13-0500 Heart rate 111 /min Mariluz Teraner PA-C Work Phone: [facility] 11-26-2022 13:13-0500 Respiratory rate 24 /min Mariluz Teraner PA-C Work Phone: [facility] 11-26-2022 13:13-0500 SaO2% (BldA) [Mass fraction] 96 % Mariluz Teraner PA-C Work Phone: [facility] 11-26-2022 13:13-0500 Systolic blood pressure 96 mm[Hg] Mariluz Teraner PA-C Work Phone: [facility] 11-25-2022 09:50-0500 Body height 160 cm Misbah Elkins MD Work Phone: [facility] 11-25-2022 09:50-0500 Body temperature 97.5 [degF] Misbah Elkins MD Work Phone: [facility] 11-25-2022 09:50-0500 Body weight 58.97 kg Misbah Elkins MD Work Phone: [facility] 11-25-2022 09:50-0500 Diastolic blood pressure 60 mm[Hg] Misbah Elkins MD Work Phone: [facility] 11-25-2022 09:50-0500 Heart rate 111 /min Misbah Elkins MD Work Phone: [facility] 11-25-2022 09:50-0500 Respiratory rate 16 /min Misbah Elkins MD Work Phone: [facility] 11-25-2022 09:50-0500 SaO2% (BldA) [Mass fraction] 97 % Misbah Elkins MD Work Phone: [facility] 11-25-2022 09:50-0500 Systolic blood pressure 132 mm[Hg] Misbah Elkins MD Work Phone: [facility] 11-11-2022 15:59-0500 Body height 160 cm Misbah Elkins MD Work Phone: [facility] 11-11-2022 15:59-0500 Body temperature 97.7 [degF] Misbah Elkins MD Work Phone: [facility] 11-11-2022 15:59-0500 Body weight 58.97 kg Misbah Elkins MD Work Phone: [facility] 11-11-2022 15:59-0500 Diastolic blood pressure 56 mm[Hg] Misbah Elkins MD Work Phone: [facility] 11-11-2022 15:59-0500 Heart rate 96 /min Misbah Elkins MD Work Phone: [facility] 11-11-2022 15:59-0500 Respiratory rate 12 /min Misbah Elkins MD Work Phone: [facility] 11-11-2022 15:59-0500 SaO2% (BldA) [Mass fraction] 99 % Misbah Elkins MD Work Phone: [facility] 11-11-2022 15:59-0500 Systolic blood pressure 108 mm[Hg] Misbah Elkins MD Work Phone: [facility] 11-07-2022 13:41-0500 Heart rate 96 /min SERVICE COUNTER CASHIER-C SOILA OLDER Work Phone: [facility] 11-07-2022 13:41-0500 Inhaled oxygen flow rate 2 L/min SERVICE COUNTER CASHIER-C SOILA OLDER Work Phone: [facility] 11-07-2022 13:41-0500 Respiratory rate 20 /min SERVICE COUNTER CASHIER-C SOILA OLDER Work Phone: [facility] 11-07-2022 13:41-0500 SaO2% (BldA) [Mass fraction] 95 % SERVICE COUNTER CASHIER-C SOILA OLDER Work Phone: [facility] 11-07-2022 09:20-0500 Body temperature 98 [degF] SERVICE COUNTER CASHIER-C SOILA OLDER Work Phone: [facility] 11-07-2022 09:20-0500 Diastolic blood pressure 85 mm[Hg] SERVICE COUNTER CASHIER-C SOILA OLDER Work Phone: [facility] 11-07-2022 09:20-0500 Systolic blood pressure 126 mm[Hg] SERVICE COUNTER CASHIER-C SOILA OLDER Work Phone: [facility] 11-07-2022 06:00-0500 Body weight 62.2 kg SERVICE COUNTER CASHIER-C SOILA OLDER Work Phone: [facility] 11-05-2022 10:20-0500 Body height 160.02 cm SERVICE COUNTER CASHIER-C SOILA OLDER Work Phone: [facility] 11-05-2022 07:21-0500 Inhaled oxygen concentration 30 % SERVICE COUNTER CASHIER-C SOILA OLDER Work Phone: [facility] 11-03-2022 08:46-0500 Body height 160 cm Misbah Elkins MD Work Phone: [facility] 11-03-2022 08:46-0500 Body temperature 98.1 [degF] Misbah Elkins MD Work Phone: [facility] 11-03-2022 08:46-0500 Body weight 59.88 kg Misbah Elkins MD Work Phone: [facility] 11-03-2022 08:46-0500 Diastolic blood pressure 60 mm[Hg] Misbah Elkins MD Work Phone: [facility] 11-03-2022 08:46-0500 Heart rate 101 /min Misbah Elkins MD Work Phone: [facility] 11-03-2022 08:46-0500 Respiratory rate 20 /min Misbah Elkins MD Work Phone: [facility] 11-03-2022 08:46-0500 SaO2% (BldA) [Mass fraction] 94 % Misbah Elkins MD Work Phone: [facility] 11-03-2022 08:46-0500 Systolic blood pressure 140 mm[Hg] Misbah lEkins MD Work Phone: [facility] 11-01-2022 23:22-0500 Body mass index (BMI) [Ratio] 23.7 kg/m2 SERVICE COUNTER CASHIER-C SOILA OLDER Work Phone: [facility] 10-29-2022 07:12-0500 Body temperature 97.7 [degF] Text Entry Free [facility] 10-29-2022 07:12-0500 Diastolic blood pressure 63 mm[Hg] Text Entry Free [facility] 10-29-2022 07:12-0500 Heart rate 69 /min Text Entry Free [facility] 10-29-2022 07:12-0500 Respiratory rate 18 /min Text Entry Free [facility] 10-29-2022 07:12-0500 SaO2% (BldA) [Mass fraction] 97 % Text Entry Free [facility] 10-29-2022 07:12-0500 Systolic blood pressure 100 mm[Hg] Text Entry Free [facility] 10-20-2022 07:01-0500 Body temperature 9 [degF] SERVICE COUNTER CASHIER-C SOILA OLDER Work Phone: [facility] 10-20-2022 07:01-0500 Diastolic blood pressure 74 mm[Hg] SERVICE COUNTER CASHIER-C SOILA OLDER Work Phone: [facility] 10-20-2022 07:01-0500 Heart rate 99 /min SERVICE COUNTER CASHIER-C SOILA OLDER Work Phone: [facility] 10-20-2022 07:01-0500 Respiratory rate 15 /min SERVICE COUNTER CASHIER-C SOILA OLDER Work Phone: [facility] 10-20-2022 07:01-0500 SaO2% (BldA) [Mass fraction] 94 % SERVICE COUNTER CASHIER-C SOILA OLDER Work Phone: [facility] 10-20-2022 07:01-0500 Systolic blood pressure 167 mm[Hg] SERVICE COUNTER CASHIER-C SOILA OLDER Work Phone: [facility] 10-19-2022 18:57-0500 Body height 160.02 cm SERVICE COUNTER CASHIER-C SOILA OLDER Work Phone: [facility] 10-19-2022 18:57-0500 Body mass index (BMI) [Ratio] 23.6 kg/m2 SERVICE COUNTER CASHIER-C SOILA OLDER Work Phone: 2(143)894-852879 [place] [address] 10-19-2022 18:57-0500 Body weight 60.32 kg SERVICE COUNTER CASHIER-C SOILA OLDER Work Phone: 8(490)136-745579 [place] [address] 09-05-2022 13:43-0500 Body mass index (BMI) [Ratio] 23.4 kg/m2 SERVICE COUNTER CASHIER-C OSILA OLDER Work Phone: 3(533)896-921079 [place] [address] 09-05-2022 13:43-0500 Body temperature 98.4 [degF] SERVICE COUNTER CASHIER-C SOILA OLDER Work Phone: 3(384)455-888679 [place] [address] 09-05-2022 13:43-0500 Body weight 60.04 kg SERVICE COUNTER CASHIER-C SOILA OLDER Work Phone: 5(212)843-313379 [place] [address] 09-05-2022 13:43-0500 Diastolic blood pressure 74 mm[Hg] SERVICE COUNTER CASHIER-C SOILA OLDER Work Phone: 0(762)276-527779 [place] [address] 09-05-2022 13:43-0500 Heart rate 93 /min SERVICE COUNTER CASHIER-C SOILA OLDER Work Phone: 5(048)359-930779 [place] [address] 09-05-2022 13:43-0500 Inhaled oxygen flow rate 2 L/min SERVICE COUNTER CASHIER-C SOILA OLDER Work Phone: 1(023)701-412879 [place] [address] 09-05-2022 13:43-0500 Respiratory rate 18 /min SERVICE COUNTER CASHIER-C SOILA OLDER Work Phone: [facility] 09-05-2022 13:43-0500 SaO2% (BldA) [Mass fraction] 96 % SERVICE COUNTER CASHIER-C SOILA OLDER Work Phone: [facility] 09-05-2022 13:43-0500 Systolic blood pressure 104 mm[Hg] SERVICE COUNTER CASHIER-C SOILA OLDER Work Phone: [facility] 08-27-2022 12:49-0500 Body temperature 98.29 [degF] Soila Older SALES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 Phone: [facility] 08-27-2022 12:49-0500 Body weight 59.88 kg Soila Older SALES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 Phone: [facility] 08-27-2022 12:49-0500 Diastolic blood pressure 80 mm[Hg] Soila Older SALES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 Phone: [facility] 08-27-2022 12:49-0500 Heart rate 80 /min Soila Older SALES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 Phone: [facility] 08-27-2022 12:49-0500 Respiratory rate 16 /min Soila Older SALES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 Phone: [facility] 08-27-2022 12:49-0500 SaO2% (BldA) [Mass fraction] 82 % Soila Older SALES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 Phone: [facility] 08-27-2022 12:49-0500 Systolic blood pressure 132 mm[Hg] Soila Older SALES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 Phone: [facility] 08-22-2022 19:41-0500 Diastolic blood pressure 91 mm[Hg] SERVICE COUNTER CASHIER-C SOILA OLDER Work Phone: [facility] 08-22-2022 19:41-0500 Heart rate 100 /min SERVICE COUNTER CASHIER-C SOILA OLDER Work Phone: [facility] 08-22-2022 19:41-0500 Respiratory rate 24 /min SERVICE COUNTER CASHIER-C SOILA OLDER Work Phone: [facility] 08-22-2022 19:41-0500 SaO2% (BldA) [Mass fraction] 93 % SERVICE COUNTER CASHIER-C SOILA OLDER Work Phone: [facility] 08-22-2022 19:41-0500 Systolic blood pressure 146 mm[Hg] SERVICE COUNTER CASHIER-C SOILA OLDER Work Phone: [facility] 08-22-2022 18:11-0500 Body temperature 97.8 [degF] SERVICE COUNTER CASHIER-C SOILA OLDER Work Phone: [facility] 08-22-2022 18:11-0500 Inhaled oxygen flow rate 2 L/min SERVICE COUNTER CASHIER-C SOILA OLDER Work Phone: [facility] 08-22-2022 16:06-0500 Body mass index (BMI) [Ratio] 23.5 kg/m2 SERVICE COUNTER CASHIER-C SOILA OLDER Work Phone: [facility] 08-22-2022 16:06-0500 Body weight 60.2 kg SERVICE COUNTER CASHIER-C SOILA OLDER Work Phone: [facility] 07-18-2022 09:56-0400 Body weight 60.33 kg Soila Older SALES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 Phone: [facility] 07-18-2022 09:56-0400 Diastolic blood pressure 72 mm[Hg] Soila Older SALES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 Phone: [facility] 07-18-2022 09:56-0400 Heart rate 72 /min Soila Older SALES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 Phone: [facility] 07-18-2022 09:56-0400 Respiratory rate 16 /min Soila Older SALES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 Phone: [facility] 07-18-2022 09:56-0400 Systolic blood pressure 128 mm[Hg] Soila Older SALES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 Phone: [facility] 05-27-2022 09:13-0400 Body height 160 cm Claudia Odonnell MD Work Phone: [facility] 05-27-2022 09:13-0400 Body weight 59.06 kg Claudia Odonnell MD Work Phone: [facility] 05-27-2022 09:13-0400 Diastolic blood pressure 72 mm[Hg] Claudia Odonnell MD Work Phone: [facility] 05-27-2022 09:13-0400 Heart rate 81 /min Claudia Odonnell MD Work Phone: [facility] 05-27-2022 09:13-0400 Systolic blood pressure 116 mm[Hg] Claudia Odonnell MD Work Phone: [facility] 04-17-2022 08:57-0400 Body weight 58.51 kg Soila Older SALES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 Phone: [facility] 04-17-2022 08:57-0400 Diastolic blood pressure 72 mm[Hg] Soila Older SALES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 Phone: [facility] 04-17-2022 08:57-0400 Heart rate 92 /min Soila Older SALES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 Phone: [facility] 04-17-2022 08:57-0400 Respiratory rate 16 /min Soila Older SALES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 Phone: [facility] 04-17-2022 08:57-0400 Systolic blood pressure 128 mm[Hg] Soila Older SALES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 Phone: [facility] 03-03-2022 14:20-0400 Inhaled oxygen flow rate 2 L/min [facility] Work Phone: 03-03-2022 14:20-0400 SaO2% (BldA) [Mass fraction] 94 % SERVICE COUNTER CASHIER-Nichole Teague SERVICE COUNTER CASHIER Work Phone: [facility] Work Phone: 03-03-2022 14:16-0400 Diastolic blood pressure 84 mm[Hg] CARMEN Teague SERVICE COUNTER CASHIER Work Phone: [facility] Work Phone: 03-03-2022 14:16-0400 Heart rate 91 /min SERVICE COUNTER CASHIERMiriam Teague SERVICE COUNTER CASHIER Work Phone: [facility] Work Phone: 03-03-2022 14:16-0400 Respiratory rate 16 /min SERVICE COUNTER CASHIER-Nichole Teague SERVICE COUNTER CASHIER Work Phone: [facility] Work Phone: 03-03-2022 14:16-0400 Systolic blood pressure 108 mm[Hg] SERVICE COUNTER CASHIER-Nichole Teague SERVICE COUNTER CASHIER Work Phone: [facility] Work Phone: 03-03-2022 11:36-0400 Body height 160.02 cm SERVICE COUNTER CASHIER-Nichole Teague SERVICE COUNTER CASHIER Work Phone: [facility] Work Phone: 03-03-2022 11:36-0400 Body mass index (BMI) [Ratio] 23.9 kg/m2 SERVICE COUNTER CASHIER-Nichole Teague SERVICE COUNTER CASHIER Work Phone: [facility] Work Phone: 03-03-2022 11:36-0400 Body temperature 97.8 [degF] SERVICE COUNTER CASHIER-Nichole Teague SERVICE COUNTER CASHIER Work Phone: [facility] Work Phone: 03-03-2022 11:36-0400 Body weight 61.23 kg SERVICE COUNTER CASHIER-Nichole Teague SERVICE COUNTER CASHIER Work Phone: [facility] Work Phone: 01-16-2022 09:30-0400 Body mass index (BMI) [Ratio] 22.8 kg/m2 SERVICE COUNTER CASHIER-Nichole Teague SERVICE COUNTER CASHIER Work Phone: [facility] Work Phone: 01-16-2022 09:30-0400 Body temperature 98.9 [degF] SERVICE COUNTER CASHIER-Nichole Teague SERVICE COUNTER CASHIER Work Phone: [facility] Work Phone: 01-16-2022 09:30-0400 Body weight 58.51 kg SERVICE COUNTER CASHIER-Nichole Teague SERVICE COUNTER CASHIER Work Phone: [facility] Work Phone: 01-16-2022 09:30-0400 Diastolic blood pressure 82 mm[Hg] SERVICE COUNTER CASHIER-Nichole Teague SERVICE COUNTER CASHIER Work Phone: [facility] Work Phone: 01-16-2022 09:30-0400 Heart rate 108 /min SERVICE COUNTER CASHIER-C Theron Ho SERVICE COUNTER CASHIER Work Phone: [facility] Work Phone: 01-16-2022 09:30-0400 Respiratory rate 19 /min SERVICE COUNTER CASHIER-C Theron Teague SERVICE COUNTER CASHIER Work Phone: [facility] Work Phone: 01-16-2022 09:30-0400 SaO2% (BldA) [Mass fraction] 96 % SERVICE COUNTER CASHIER-C Theron Teague SERVICE COUNTER CASHIER Work Phone: [facility] Work Phone: 01-16-2022 09:30-0400 Systolic blood pressure 104 mm[Hg] SERVICE COUNTER CASHIER-C Theron Teague SERVICE COUNTER CASHIER Work Phone: [facility] Work Phone: Encounters Encounter Date Encounter Type Care Provider Facility Start: 07-12-2025 Emergency department patient visit Fernando [facility] Facility:[facility] Start: 07-10-2025 End: 07-10-2025 Emergency department patient visit Joanne Kelly Facility:[facility] Start: 07-06-2025 End: 07-07-2025 Dr. Misbah Elkins MD Work Phone: -Emergency Department Work Phone: Start: 07-06-2025 End: 07-07-2025 Emergency department patient visit [facility] Facility:[facility] Start: 07-06-2025 ambulatory [facility] Facility:[facility] Start: 07-06-2025 Marshal Segura DO -[facility] Start: 07-06-2025 End: 07-06-2025 Marshal Segura DO -Endoscopy Work Phone: Start: 07-06-2025 End: 07-06-[address] Misbah Elkins MD Work Phone: -Endoscopy Start: 06-12-2025 End: 06-14-2025 Refill Soila Easton APRN.COMPANY MARKER Work Phone: [facility] [place] Comment on above: Refill Request Start: 05-31-2025 End: 05-31-2025 Office outpatient visit 15 minutes Soila Easton UNA.COMPANY MARKER Work Phone: [facility] [place] Comment on above: Chronic pancreatitis , unspecified pancreatitis type (HCC) (Primary Dx); Generalized abdominal pain; Chronic obstructive pulmonary disease with acute lower respiratory infection (HCC); Dependence on supplemental oxygen; Hearing loss of right ear, unspecified hearing loss type Start: 05-31-2025 End: 05-31-2025 ambulatory [facility] Facility:[facility] Start: 05-24-2025 End: 05-24-2025 Dr. Misbah Elkins MD Work Phone: -Emergency Department Work Phone: Start: 05-24-2025 End: 05-24-2025 Emergency department patient visit Dr. Misbah Elkins MD Work Phone: -Emergency Department Start: 05-24-2025 End: 05-24-2025 ambulatory Anta Gutiérrez SERVICE COUNTER CASHIER-C Work Phone: -Laboratory Specimen Start: 05-24-2025 End: 05-24-2025 Dr. Sudhir Grijalva MD -Laboratory Specimen Work Phone: Start: 05-24-2025 End: 05-24-2025 Ani Eduardo SERVICE COUNTER CASHIER-C -[facility] Work Phone: Start: 05-24-2025 End: 05-24-[address] Misbah Elkins MD Work Phone: -[facility] Start: 05-24-2025 End: 05-24-2025 ambulatory [facility] Facility:[facility] Start: 05-19-2025 End: 05-20-2025 Follow-up encounter Misbah Elkins MD Work Phone: [facility] [place] Start: 05-18-2025 End: 05-18-2025 ambulatory [facility] Facility:[facility] Start: 05-17-2025 End: 05-19-2025 Refill Misbah Elkins MD Work Phone: [facility] [place] Comment on above: Refill Request Start: 05-16-2025 End: 05-17-2025 Refill Misbah Elkins MD Work Phone: [facility] [place] Comment on above: Refill Request Start: 05-10-2025 End: 05-10-2025 Dr. Misbah Elkins MD Work Phone: -Emergency Department Work Phone: Start: 05-10-2025 End: 05-10-2025 Emergency department patient visit Dr. Misbah Elkins MD Work Phone: -Emergency Department Start: 05-09-2025 End: 05-12-2025 ambulatory Misbah Elkins MD Work Phone: Internal Medicine [place] [id number] Start: 04-27-2025 End: 04-27-[address] Misbah Elkins MD Work Phone: -Laboratory Specimen Start: 04-27-2025 End: 04-27-2025 Gabby SILVA -Laboratory Specimen Work Phone: Start: 04-26-2025 End: 04-26-2025 Gabby SILVA -[facility] Work Phone: Start: 04-26-2025 End: 04-27-[address] Misbah Elkins MD Work Phone: -[facility] Start: 04-25-2025 End: 04-25-2025 Office outpatient [...] Start: 04-25-2025 End: 04-26-2025 ambulatory MISBAH ELKINS Facility:[facility] Start: 04-25-2025 End: 04-26-2025 Telephone encounter Misbah Elkins MD Work Phone: [facility] [place] Comment on above: Pain medication Start: 04-20-2025 End: 04-22-2025 Telephone encounter Misbah Elkins MD Work Phone: [facility] [place] Comment on above: Patient Update Start: 04-19-2025 Dr. Sudhir Izquierdo MD -[facility] [facility] Work Phone: Start: 04-18-2025 Dr. Sudhir Izquierdo MD -[place] [facility] Work Phone: Start: 04-17-2025 Dr. Bert Greenwood MD [facility] Work Phone: Start: 04-16-2025 [...] Office outpatient visit 25 minutes Nicolas Greer APRN.BIT SANDER Work Phone: [facility] [place] Comment on above: Hospital discharge f ollow-up (Primary Dx); Acute respiratory failure with hypoxia (HCC); Chronic recurrent pancreatitis (HCC); Norovirus; Pneumonia of both lungs due to infectious organism, unspecified part of lung; Presence of pancreatic duct stent; Alcoholic hepatitis without ascites (HCC); Alcohol use disorder, moderate, dependence (HCC) Start: 04-10-2025 End: 04-10-2025 ambulatory MISBAH ELKINS Facility:[facility] Start: 04-10-2025 End: 04-10-2025 Ani Eduardo SERVICE COUNTER CASHIER-C -[facility] Work Phone: Start: 04-10-2025 End: 04-10-[address] Misbah Elkins MD Work Phone: -[facility] Start: 04-07-2025 End: 04-07-2025 Telephone encounter Floresita Villaseñor APRN.COMPANY MARKER Work Phone: Gastroenterology Comment on above: Opened In Error Start: 04-04-2025 End: 04-07-2025 Telephone encounter Misbah Elkins MD Work Phone: NOC Comment on above: Transition Of Care Chronic recurrent pa ncreatitis (HCC) (Primary Dx) Transition Of Care ( Left V/m ) Appointment Start: 03-29-2025 End: 03-29-2025 Telephone encounter Juan Senior APRN.COMPANY MARKER Work Phone: [facility] Comment on above: Patient Question Start: 03-28-2025 End: 03-28-2025 Telephone encounter Herman Nevarez RN NOC Comment on above: Transition Of Care ( RC f/u discharge LVM /) Start: 03-21-2025 End: 03-22-2025 Refill Misbah Elkins MD Work Phone: [facility] [place] Comment on above: Refill Request Start: 03-20-2025 End: 03-20-2025 Evaluation and management of inpatient NGUYEN PALACIOS Facility:[id number] Start: 03-16-2025 End: 03-16-2025 Telephone encounter Misbah Elkins MD Work Phone: [facility] [place] Comment on above: Patient Update Start: 03-16-2025 Dr. Sudhir Izquierdo MD -[place] [facility] Work Phone: Start: 03-15-2025 End: 03-23-2025 Evaluation and management of inpatient [place] Facility:[id number] Start: 03-15-2025 Dr. Sudhir Izquierdo MD -[place] [facility] Work Phone: Start: 03-15-2025 End: 03-16-2025 ambulatory Maksim Anderson APRN.COMPANY MARKER Work Phone: Critical Care Start: 03-15-2025 Dr. Gonzalo Sebastian DO -[facility] Start: 03-14-2025 Dr. Sudhir Izquierdo MD -[place] [facility] Work Phone: Start: 03-13-2025 End: 03-15-2025 Evaluation and management of inpatient Dr. Misbah Elkins MD Work Phone: [facility] Work Phone: Start: 03-13-2025 ambulatory [facility] Start: 03-13-2025 End: 03-15-2025 Dr. Pako Fernández MD -[facility] Work Phone: Start: 03-13-2025 End: 03-13-2025 Telephone encounter Jane Farrell MD Work Phone: Gastroenterology Comment on above: Patient Update (Symp toms after ERCP ) Start: 03-10-2025 ambulatory VANESSA Mustafa y:[facility] Start: 03-10-2025 End: 03-10-2025 Subsequent hospital visit by physician Jane Farrell MD Work Phone: Gastroenterology Comment on above: Other chronic pancre atitis (HCC) [K86.1] Start: 03-07-2025 End: 03-07-2025 Telephone encounter Juan Senior APRN.COMPANY MARKER Work Phone: Gastroenterology Comment on above: Orders Start: 03-06-2025 End: 03-06-2025 Telephone encounter Raisa Jimenez RNdock boss Comment on above: Patient Question Patient Question (Qu estions Prior to ERCP) Start: 03-03-2025 End: 03-03-2025 ambulatory Jaelyn Kothari RN Gastroenterology Start: 02-26-2025 End: 02-26-2025 Emergency department patient visit Dr. Misbah Elkins MD Work Phone: [facility] Work Phone: Start: 02-26-2025 End: 02-26-2025 Dr. Misbah Elkins MD Work Phone: -Emergency Department Work Phone: Start: 02-10-2025 End: 02-13-2025 Telephone encounter Juan Senior APRN.COMPANY MARKER Work Phone: Gastroenterology Comment on above: Medical Clearance Start: 02-08-2025 End: 02-08-2025 Ani ROGERSC -[facility] Work Phone: Start: 02-08-2025 End: 02-08-[address] Misbah Elkins MD Work Phone: [facility] Work Phone: Start: 02-03-2025 End: 03-06-2025 Refill Juan Senior APRN.COMPANY MARKER Work Phone: Gastroenterology Comment on above: Refill Request Start: 01-27-2025 End: 01-27-2025 Dr. [facility] Work [facility]: Start: 01-27-2025 End: 01-27-2025 Emergency department patient visit [facility] Facility:[facility] Start: 01-24-2025 End: 01-24-2025 Refill Misbah Elkins MD Work Phone: [facility] [place] Comment on above: Refill Request Start: 01-18-2025 ambulatory Ani Eduardo NP Fac ility:[facility] Start: 01-13-2025 End: 01-13-2025 Patient encounter procedure Soila Easton APRN.COMPANY MARKER Work Phone: [facility] [place] Comment on above: Gout, unspecified ca use, unspecified chronicity, unspecified site (Primary Dx); Calculus of pancreatic duct (HCC); Chronic recurrent pancreatitis (HCC); Chronic obstructive pulmonary disease, unspecified COPD type (HCC); Pulmonary emphysema, unspecified emphysema type (HCC); Tobacco use disorder Start: 01-13-2025 End: 01-13-2025 ambulatory MISBAH ELKINS Facility:[facility] Start: 01-09-2025 End: 01-12-2025 Telephone encounter Raisa Jimenez RNdock boss Comment on above: Patient Update (Pain ) Order for Pull Ups Start: 01-06-2025 End: 01-09-2025 Telephone encounter Juan Senior APRN.COMPANY MARKER Work Phone: [facility] Comment on above: Patient Question Start: 01-05-2025 End: 01-11-2025 Telephone encounter Juan Senior APRN.COMPANY MARKER Work Phone: Gastroenterology Comment on above: Patient Request Start: 01-03-2025 End: 01-03-2025 Refill Misbah Elkins MD Work Phone: [facility] Comment on above: Refill Request Start: 01-01-2025 End: 01-01-2025 Dr. Misbah Elkins MD Work Phone: -Emergency Department Work Phone: Start: 01-01-2025 End: 01-01-2025 Emergency department patient visit Dr. Misbah Elkins MD Work Phone: [facility] Work Phone: Start: 12-31-2024 End: 01-18-2025 ambulatory Marge Handy RN Work Phone: NURSE SURVEY OPERATIONS DIRECTOR Comment on above: Medication Question Refill Request Start: 12-27-2024 End: 12-28-2024 Telephone encounter Juan Senior APRN.COMPANY MARKER Work Phone: [facility] Comment on above: Patient Update Start: 12-24-2024 End: 12-24-2024 Dr. Misbah Elkins MD Work Phone: -Emergency Department Work Phone: Start: 12-24-2024 End: 12-24-2024 Emergency department patient visit Dr. Misbah Elkins MD Work Phone: [facility] Work Phone: Start: 12-23-2024 End: 12-23-2024 Telephone encounter Raisa Jimenez dock boss Comment on above: Reminder Call (Misse d call) Start: 12-23-2024 End: 12-23-2024 Ani Eduardo SERVICE COUNTER CASHIER-C -[facility] Work Phone: Start: 12-23-2024 End: 12-23-2024 ambulatory [facility] Facility:[facility] Start: 12-21-2024 End: 02-20-2025 Follow-up encounter Tara Youngblood APRN.COMPANY MARKER Work Phone: [facility] Start: 12-20-2024 End: 12-20-2024 ambulatory Carroll Leblanc RN Gastroenterology Start: 12-19-2024 End: 12-19-2024 Subsequent hospital visit by physician [facility] Work Phone: Radiology Comment on above: Chronic recurrent pa ncreatitis (HCC) [K86.1] Start: 12-19-2024 End: 12-19-2024 [facility] Facility:[facility] Start: 12-19-2024 End: 12-19-2024 Patient encounter procedure Tara Youngblood APRN.COMPANY MARKER Work Phone: [facility] Comment on above: Hospital discharge f ollow-up (Primary Dx); Chronic recurrent pancreatitis (HCC); Chronic obstructive pulmonary disease, unspecified COPD type (HCC); Dysphagia, unspecified type; Essential hypertension, benign; Tobacco use disorder; Smoker Start: 12-19-2024 End: 12-22-2024 Telephone encounter Misbah Elkins MD Work Phone: [facility] [place] Comment on above: Results Start: 12-16-2024 End: 12-16-2024 Gabby SILVA -[facility] Work Phone: Start: 12-16-2024 End: 12-16-2024 ambulatory [facility] Facility:[facility] Start: 12-12-2024 Non-patient / Non-visit Dr. Emily Bonilla MD [facility] Work Phone: Start: 12-12-2024 Dr. Anastacia camargo MD [facility] Work Phone: Start: 12-12-2024 Non-patient / Non-visit Marshal Rahul ryder DO -[facility] Start: 12-12-2024 Marshal Colton DO -[facility] Start: 12-11-2024 Non-patient / Non-visit Dr. Emily Bonilla MD [facility] Work Phone: Start: 12-11-2024 Dr. Anastacia camargo [facility] Work Phone: Start: 12-10-2024 Non-patient / Non-visit Dr. Emily Bonilla MD [facility] Work Phone: Start: 12-10-2024 Dr. Anastacia camargo MD [facility] Work Phone: Start: 12-09-2024 Non-patient / Non-visit Dr. Emily Bonilla MD [facility] Work Phone: Start: 12-09-2024 Dr. Anastacia camargo [facility] Work Phone: Start: 12-09-2024 Non-patient / Non-visit Dr. Gonzalo Lopez own -[facility] Start: 12-09-2024 Dr. Gonzalo Sebastian [facility] Start: 12-08-2024 Non-patient / Non-visit Dr. Cherelle Kahn [facility] Work Phone: Start: 12-08-2024 Dr. Yrn vilchis [facility] Work Phone: Start: 12-08-2024 Non-patient / Non-visit Dr. Gonzalo Lopez own DO -[facility] Start: 12-08-2024 Dr. Gonzalo Sebastian [facility] Start: 12-07-2024 Non-patient / Non-visit Dr. Cherelle Kahn [facility] Work Phone: Start: 12-07-2024 Dr. Yrn vilchis [facility] Work Phone: Start: 12-07-2024 Non-patient / Non-visit Dr. Gonzalo samuel DO [facility] Start: 12-07-2024 Dr. Gonzalo Sebastian DO [facility] Start: 12-06-2024 Non-patient / Non-visit Dr. Cherelle Kahn [facility] Work Phone: Start: 12-06-2024 Dr. Yrn vilchis [facility] Work Phone: Start: 12-06-2024 Non-patient / Non-visit Dr. Gonzalo samuel DO [facility] Start: 12-06-2024 [facility] Start: 12-05-2024 Non-patient / Non-visit Dr. Cherelle Kahn [facility] Work Phone: Start: 12-05-2024 Dr. Yrn vilchis [facility] Work Phone: Start: 12-05-2024 ambulatory [facility] Start: 12-05-2024 End: 12-05-2024 Telephone encounter uJan Senior APRN.CNP Work Phone: Gastroenterology Start: 12-05-2024 Non-patient / Non-visit Dr. Emily Gaxiola MD -[facility] Start: 12-05-2024 [facility] Start: 12-04-2024 Non-patient / Non-visit Dr. Aleta Aguayo [facility] Work Phone: Start: 12-04-2024 [...] Start: 12-01-2024 End: 12-01-2024 ambulatory EDUARD GALEANO Facility:[facility] Start: 12-01-2024 End: 12-01-2024 Subsequent hospital visit by physician Jane Farrell MD Work Phone: Gastroenterology Comment on above: Chronic recurrent pa ncreatitis (HCC) [K86.1] Start: 11-29-2024 End: 12-02-2024 ambulatory Misbah Elknis MD Work Phone: Internal Medicine [place] [id number] Start: 11-25-2024 End: 11-25-2024 Telephone encounter Raisa Jimenez RNdock boss Comment on above: Medication Problem ( Medication for EGD) Start: 11-24-2024 End: 11-24-2024 Patient encounter procedure Ani Eduardo SERVICE COUNTER CASHIER-C -Pulmonary Services/Neurology Work Phone: Start: 11-24-2024 End: 11-24-2024 Ani Eduardo SERVICE COUNTER CASHIER-C -Pulmonary Services/Neurology Work Phone: Start: 11-24-2024 End: 11-24-2024 ambulatory Carroll Leblanc RN Gastroenterology Start: 11-24-2024 End: 11-24-2024 ambulatory Ani Eduardo NP Facility:[facility] Start: 11-21-2024 End: 11-21-2024 Refill Misbah Elkins MD Work Phone: Internal [facility] Comment on above: Refill Request Start: 11-08-2024 End: 11-09-2024 Follow-up encounter Misbah Elkins MD Work Phone: Internal [facility] Start: 11-08-2024 End: 11-09-2024 Telephone encounter Misbah Elkins MD Work Phone: [facility] [place] Comment on above: Medication Problem Start: 11-07-2024 End: 11-07-2024 Subsequent hospital visit by physician [facility] [place] Work Phone: Radiology Comment on above: COPD with exacerbati on (HCC) [J44.1] Start: 11-07-2024 End: 11-07-2024 ambulatory [facility] Facility:[facility] Start: 11-07-2024 End: 11-07-2024 Office outpatient visit 25 minutes Misbah Elkins MD Work Phone: Internal Medicine [place] Comment on above: Cough with sputum (P rimary Dx); Essential hypertension; COPD with exacerbation (HCC) Start: 11-02-2024 End: 11-02-2024 Office outpatient new 30 minutes Juan Senior APRN.CNP Work Phone: Gastroenterology Comment on above: Alcohol-induced engineering design manager luis pancreatitis (HCC) (Primary Dx); Chronic recurrent pancreatitis (HCC); Chronic RUQ pain; Abdominal bloating; Nausea; Gastroesophageal reflux disease without esophagitis Start: 11-02-2024 End: 11-02-2024 [facility] Facility:[facility] Start: 10-28-2024 End: 10-28-2024 Refill Misbah Elkins MD Work Phone: Internal Medicine [place] Comment on above: Refill Request Start: 08-23-2024 End: 08-23-2024 ambulatory [facility] Facility:[facility] Start: 08-23-2024 End: 08-23-2024 Subsequent hospital visit by physician [facility] ([facility]-Stat) Work Phone: Cat Scan Comment on above: Alcoholic hepatitis without ascites [K70.10] Start: 08-19-2024 End: 08-19-2024 Telephone encounter Misbah Elkins MD Work Phone: Internal Medicine [place] Comment on above: medication issue Start: 08-16-2024 End: 08-17-2024 Refill Misbah Elkins MD Work Phone: Family [facility] [place] Comment on above: Refill Request Start: 08-15-2024 End: 08-15-2024 [facility] Facility:[facility] Start: 08-15-2024 End: 08-15-2024 Patient encounter procedure Soila Easton APRN.COMPANY MARKER Work Phone: Internal Medicine [place] Comment on above: Chronic obstructive pulmonary disease, unspecified COPD type (HCC) (Primary Dx); Generalized abdominal tenderness without rebound tenderness; Upper abdominal pain; Elevated lipase; Nausea; Alcoholic hepatitis without ascites; Alcohol use disorder, moderate, dependence (HCC); Acute pancreatitis, unspecified complication status, unspecified pancreatitis type Start: 08-12-2024 End: 08-12-2024 [facility] Facility:[facility] Start: 08-11-2024 End: 08-11-2024 Telephone encounter Misbah Elkins MD Work Phone: Internal Medicine [place] Comment on above: Results Start: 08-10-2024 End: 08-10-2024 Subsequent hospital visit by physician [facility] [place] Work Phone: Radiology Comment on above: Shortness of breath [R06.02] Start: 08-10-2024 End: 08-10-2024 Patient encounter procedure Soila Easton APRN.COMPANY MARKER Work Phone: Internal [facility] [place] Comment on above: Shortness of breath (Primary Dx); Chronic obstructive pulmonary disease with acute exacerbation (HCC); Upper abdominal pain; Nausea; Urinary incontinence, unspecified type; Urinary frequency; Elevated glucose; Tobacco use disorder; Pulmonary emphysema, unspecified emphysema type (HCC) Start: 08-10-2024 End: 08-10-2024 [facility] Facility:[facility] Start: 08-10-2024 End: 08-10-2024 Telephone encounter Misbah Elkins MD Work Phone: Internal Medicine [place] Comment on above: Results; Urinary Pro blem Start: 08-05-2024 End: 08-05-2024 [facility] Facility:[facility] Start: 08-05-2024 End: 08-05-2024 Office outpatient visit 25 minutes Misbah lEkins MD Work Phone: Internal Medicine [place] Comment on above: Anxiety (Primary Dx) ; Alcohol-induced chronic pancreatitis (HCC); Nausea; Encounter for immunization; Insomnia, unspecified type; Leukocytosis, unspecified type Start: 08-05-2024 End: 08-05-2024 ambulatory MISBAH ELKINS Facility:[facility] Start: 07-08-2024 End: 07-08-2024 Refill Misbah Elkins MD Work Phone: Internal Medicine [place] Comment on above: Refill Request Start: 06-21-2024 End: 06-21-2024 Telephone encounter Misbah Elkins MD Work Phone: Internal Medicine [place] Comment on above: No Show Start: 06-15-2024 End: 06-16-2024 Refill Misbah Elkins MD Work Phone: Internal Medicine [place] Comment on above: Refill Request Start: 05-18-2024 End: 05-18-2024 Office outpatient visit 25 minutes Misbah Elkins MD Work Phone: Internal Medicine [place] Comment on above: Anxiety (Primary Dx) ; Alcohol-induced chronic pancreatitis (HCC); Chronic obstructive pulmonary disease, unspecified COPD type (HCC); Essential hypertension Start: 05-13-2024 End: 05-16-2024 Refill Misbah Elkins MD Work Phone: Internal Medicine [place] Comment on above: Refill Request Start: 05-04-2024 ambulatory Misbah Nixon Work Phone: Internal Medicine [facility] [place] Start: 04-15-2024 Refill Misbah Nixon Work Phone: Internal Medicine [place] Comment on above: Refill Request Start: 03-23-2024 Refill Misbah Nixon Work Phone: Internal Medicine [place] Comment on above: Refill Request; Open ed In Error Start: 03-18-2024 Refill Misbah Nixon Work Phone: Internal Medicine [place] Comment on above: Refill Request Start: 03-14-2024 Refill Misbah Nixon Work Phone: Family [facility] [place] Comment on above: Refill Request Start: 02-26-2024 Refill Misbah Nixon Work Phone: Internal Medicine [place] Comment on above: Refill Request Start: 02-19-2024 Refill Misbah Nixon Work Phone: Internal Medicine [place] Comment on above: Refill Request Start: 02-04-2024 Telephone encounter Misbah michelle MD Work Phone: Internal Medicine [place] Comment on above: Patient Update Start: 01-27-2024 Telephone encounter Tara nayak SALES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 Phone: Family [facility] [place] Comment on above: Results Start: 01-25-2024 End: 01-25-2024 Subsequent hospital visit by physician Aki [facility] [place] Work Phone: Radiology Comment on above: Pneumonia due to inf ectious organism, unspecified laterality, unspecified part of lung [J18.9] Start: 01-25-2024 End: 01-25-2024 Patient encounter procedure Tara Youngblood SALES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 Phone: Family [facility] [place] Comment on above: Pneumonia due to inf ectious organism, unspecified laterality, unspecified part of lung (Primary Dx); Acute right ankle pain Start: 01-22-2024 Refill Misbah Nixon Work Phone: Internal Medicine [place] Comment on above: Refill Request Start: 01-19-2024 End: 01-20-2024 Emergency department patient visit Dr. Víctor Huerta Work Phone: [facility]-Emergency Department Work Phone: Start: 01-18-2024 Refill Misbah Nixon Work Phone: Internal Medicine [place] Comment on above: Refill Request Start: 01-12-2024 Telephone encounter Anat ventura SALES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 Phone: Internal Medicine [place] Comment on above: Medication Question Start: 01-12-2024 End: 01-12-2024 Patient encounter procedure Anat Mike Brock SALES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 Phone: Internal Medicine [place] Comment on [...] End: 01-05-2024 [facility]: Start: 12-16-2023 End: 12-16-2023 Patient encounter procedure Candie Talley PA-C Work Phone: Internal Medicine [place] Comment on above: Tachycardia (Primary Dx); Alcohol-induced chronic pancreatitis (HCC); Hyperlipidemia, unspecified hyperlipidemia type; Insomnia, unspecified type; Vitamin D deficiency; Chronic obstructive pulmonary disease, unspecified COPD type (HCC); Prediabetes Start: 11-02-2023 Refill Pako Palumbo Work Phone: Hematology/Oncology Comment on above: Refill Request Start: 07-09-2023 Telephone encounter Candie Lee PA-C Work Phone: Internal Medicine [place] Comment on above: Patient Question Start: 07-08-2023 End: 07-08-2023 Emergency department patient visit SERVICE COUNTER CASHIER-C SOILA EASTON Work Phone: [facility]-Emergency Department Work Phone: Start: 06-30-2023 End: 06-30-2023 Patient encounter procedure SERVICE COUNTER CASHIER-Nichole EASTON Work Phone: [facility]-Pulmonary Medicine [facility] Work Phone: Start: 06-12-2023 Refill Misbah Nixon Work Phone: Internal Medicine [place] Comment on above: Refill Request Start: 06-10-2023 Refill Soila Easton APRN, .CNP Work Phone: Internal Medicine [place] Comment on above: Refill Request Start: 06-03-2023 ambulatory Misbah Nixon Work Phone: Internal Medicine [facility] Start: 06-02-2023 End: 06-02-2023 Emergency department patient visit [facility]Emergency Department Work Phone: Start: 06-02-2023 End: 06-02-2023 Patient encounter procedure [facility] Work Phone: Start: 05-18-2023 Refill Misbah Nixon Work Phone: Internal Medicine [place] Comment on above: Refill Request Start: 05-05-2023 ambulatory Yrn Ortega Facility:[id number] Start: 04-15-2023 End: 04-15-2023 Patient encounter procedure Candie Talley PA-C Work Phone: Internal Medicine [place] Comment on above: Arthralgia of right temporomandibular joint (Primary Dx); Insomnia, unspecified type; Nausea; Alcohol use disorder, moderate, dependence (HCC) Start: 03-24-2023 Refill Misbah Nixon Work Phone: Internal Medicine [place] Comment on above: Refill Request Start: 03-10-2023 ambulatory Misbah Nixon Work Phone: Internal Medicine [facility] [place] Start: 03-09-2023 ambulatory Yrn Ortega Facility:[id number] Start: 01-28-2023 ambulatory Yrn Ortega Facility:[id number] Start: 12-31-2022 Telephone encounter Misbah michelle MD Work Phone: Family Medicine [place] Comment on above: Medication Request Start: 12-22-2022 Patient encounter procedure Soila Easton Work Phone: [facility] Work Phone: Start: 12-22-2022 ambulatory Yrn Ortega Facility:[id number] Start: 12-03-2022 ambulatory Yrn Ortega Facility:[id number] Start: 11-28-2022 End: 11-28-2022 Patient encounter procedure Soila Easton SALES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 Phone: Internal Medicine [place] Comment on above: Prediabetes (Primary Dx) Start: 11-27-2022 Telephone encounter Misbah michelle MD Work Phone: Internal Medicine [place] Comment on above: Erroneous encounter- disregard Results [...] 11-25-2022 Subsequent hospital visit by physician [facility] [place] Work Phone: Radiology Comment [...] Misbah michelle MD Work Phone: Family Medicine [place] Comment on above: Results Start: 11-11-2022 End: 11-11-2022 Subsequent hospital visit by physician [facility] [place] Work Phone: Radiology Comment on above: Chronic obstructive pulmonary disease, unspecified COPD type (HCC) [J44.9] Start: 11-11-2022 End: 11-11-2022 Patient encounter procedure Misbah Elkins MD Work Phone: Internal Medicine [place] Comment on above: CHUY (acute kidney in jury) (HCC) (Primary Dx); Chronic obstructive pulmonary disease, unspecified COPD type (HCC); Alcohol use disorder, moderate, dependence (HCC); Essential hypertension, benign; Hyperlipidemia, unspecified hyperlipidemia type; Tobacco use disorder; Reactive depression; Moderate episode of recurrent major depressive disorder (HCC); Alcohol-induced chronic pancreatitis (HCC) Start: 11-07-2022 Non-patient / Non-visit SERVICE COUNTER CASHIER-C J OY OLDER Work Phone: [facility] Inpatient Physicians Start: 11-06-2022 Non-patient / Non-visit SERVICE COUNTER CASHIER-C J OY OLDER Work Phone: [facility] Phys[facility] Start: 11-06-2022 Non-patient / Non-visit SERVICE COUNTER CASHIER-C J OY OLDER Work Phone: [facility]-PMW Start: 11-05-2022 Non-patient / Non-visit SERVICE COUNTER CASHIER-C J OY OLDER Work Phone: [facility] Inpatient Physicians Start: 11-05-2022 Non-patient / Non-visit SERVICE COUNTER CASHIER-C J OY OLDER Work Phone: [facility] Start: 11-05-2022 Non-patient / Non-visit SERVICE COUNTER CASHIER-C J OY OLDER [facility] Start: 11-04-2022 Non-patient / Non-visit SERVICE COUNTER CASHIER-C J OY OLDER Work Phone: [facility] Phys[facility] Start: 11-04-2022 Non-patient / Non-visit SERVICE COUNTER CASHIER-C J OY OLDER Work Phone: [facility] Start: 11-03-2022 Non-patient / Non-visit SERVICE COUNTER CASHIER-C J OY OLDER Work Phone: [facility] Phys[facility] Start: 11-03-2022 Non-patient / Non-visit SERVICE COUNTER CASHIER-C J OY OLDER Work Phone: [facility] Start: 11-02-2022 End: 11-02-2022 Non-patient / Non-visit SERVICE COUNTER CASHIER-C SOILA OLDER Work Phone: [facility] Start: 11-02-2022 Non-patient / Non-visit SERVICE COUNTER CASHIER-C J OY OLDER Work Phone: [facility] In[facility] Physicians Start: 11-01-2022 Non-patient / Non-visit SERVICE COUNTER CASHIER-C J OY OLDER Work Phone: [facility] Phys[facility] Start: 11-01-2022 End: 11-07-2022 Evaluation and management of inpatient SERVICE COUNTER CASHIER-C SOILA OLDER Work Phone: [facility]-Progressive Care Unit Start: 11-01-2022 Chart Update Soila Easton Work Phone: [facility] Work Phone: Start: 10-31-2022 End: 10-31-2022 Patient encounter procedure Misbah Elkins MD Work Phone: Internal Medicine [place] Comment on above: Cellulitis of right orbital region (Primary Dx); CHUY (acute kidney injury) (HCC); Uncontrolled hypertension; Tobacco abuse, in remission; Lung mass Start: 10-24-2022 End: 10-29-2022 Evaluation and management of inpatient Varija Yalamanchali [facility] Rm 2026 09 Start: 10-23-2022 Telephone encounter Jaime rodriguez MD Work Phone: [facility] Ophthalmology (Eye) Residents Comment on above: Speak to Provider Start: 10-22-2022 End: 10-22-2022 ambulatory UNKNOWN PROVIDER Facility:[facility] Start: 10-21-2022 ambulatory UNKNOWN PROVIDER Facili ty:[facility] Start: 10-21-2022 Evaluation and manag ement of inpatient [facility] Facility:[facility] Start: 10-20-2022 End: 10-24-2022 Evaluation and management of inpatient [facility] Facility:[facility] Start: 10-20-2022 Telephone encounter Jeffy price MD Work Phone: [facility] Medicine Start: 10-20-2022 End: 10-20-2022 ambulatory UNKNOWN PROVIDER Facility:[facility] Start: 10-20-2022 Emergency department patient visit UNKNOWN PROVIDER Facility:[facility] Start: 10-20-2022 End: 10-20-2022 Office outpatient visit 25 minutes Jeffery Jin MD Work Phone: [facility] Ophthalmology (Eye) Residents Comment on above: Inflammation of orbi kristopher region (Primary Dx) Start: 10-19-2022 End: 10-20-2022 Emergency department patient visit SERVICE COUNTER CASHIER-C SOILA EASTON [facility] Start: 09-05-2022 End: 09-05-2022 Patient encounter procedure SERVICE COUNTER CASHIER-C SOILA EASTON [facility] Start: 08-27-2022 End: 08-27-2022 Patient encounter procedure Soila Easton SALES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 Phone: Internal Medicine [place] Comment on above: Chronic obstructive pulmonary disease, unspecified COPD type (HCC) (Primary Dx) Start: 08-22-2022 End: 08-22-2022 Emergency department patient visit SERVICE COUNTER CASHIER-C SOILA EASTON Work Phone: [facility]-Emergency Department Start: 07-18-2022 End: 07-18-2022 Patient encounter procedure Soila Easton SALES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 Phone: Internal Medicine [place] Comment on above: Essential hypertensi on, benign (Primary Dx); Multiple joint pain; Alcohol-induced chronic pancreatitis (HCC); Chronic obstructive pulmonary disease, unspecified COPD type (HCC); Right otitis media, unspecified otitis media type; Need for influenza vaccination Start: 06-25-2022 ambulatory Misbah Nixon Work Phone: [facility] [place] Start: 06-25-2022 Telephone encounter Inge doshi APRN.CNP Work Phone: OB/Gynecology Comment on above: Vaginal Problem Start: 06-13-2022 Refill Misbah Nixon Work Phone: Internal Medicine [place] Comment on above: Refill Request Start: 05-28-2022 End: 05-28-2022 ambulatory [facility] Work Phone: Start: 05-28-2022 End: 05-28-2022 Patient encounter procedure [facility]-Cat Scan, [facility] Start: 05-27-2022 End: 05-27-2022 Patient encounter procedure Claudia Odonnell MD Work Phone: Gastroenterology [place] Comment on above: Alcohol-induced engineering design manager luis pancreatitis (HCC); Alcoholic hepatitis without ascites Start: 05-22-2022 Refill Misbah Nixon Work Phone: Internal [facility] Comment on above: Refill Request Start: 05-16-2022 Refill Soila Easton APRN, .CNP Work Phone: Internal Medicine [place] Comment on above: Refill Request Start: 05-02-2022 End: 05-02-2022 Subsequent hospital visit by physician [facility] Work Phone: Radiology Comment on above: Alcohol-induced engineering design manager luis pancreatitis (HCC) [K86.0] Start: 04-18-2022 Refill Soila Easton APRN, .CNP Work Phone: Internal Medicine [place] Comment on above: Refill Request Start: 04-18-2022 Telephone encounter Soila Easton APRN.CNP Work Phone: Family [facility] Comment on above: Opened In Error Start: 04-17-2022 Telephone encounter Soila Easton APRN.CNP Work Phone: [facility] Comment on above: Medication Question Start: 04-17-2022 End: 04-17-2022 Patient encounter procedure Soila Easton APRN.CNP Work Phone: [facility] Comment on above: Essential hypertensi on, benign (Primary Dx); Hyperlipidemia, unspecified hyperlipidemia type; Chronic fatigue; Alcoholic hepatitis without ascites; Alcohol-induced chronic pancreatitis (HCC); Iron deficiency; Vitamin D deficiency; MICKEY (generalized anxiety disorder); Reactive depression Start: 03-21-2022 Refill Misbah Nixon Work Phone: [facility] Comment on above: Refill Request Start: 03-21-2022 Refill Soila Easton APRN, .CNP Work Phone: [facility] Comment on above: Refill Request Start: 03-11-2022 Telephone encounter Inge doshi APRN.CNP Work Phone: OB/Gynecology Comment on above: Vaginal Problem Start: 03-03-2022 End: 03-03-2022 Emergency department patient visit SERVICE COUNTER CASHIER-Nichole Teague NP Work Phone: [facility]-Emergency Department Start: 02-21-2022 Refill Soila Easton APRN, .CNP Work Phone: [facility] Comment on above: Refill Request Start: 02-11-2022 ambulatory Misbah Nixon Work Phone: Internal [facility] [place] Start: 01-16-2022 End: 01-16-2022 Patient encounter procedure CARMEN Teague NP [facility] Start: 12-27-2021 Refill Víctor Mcpherson APRN.CNP, DNP Work Phone: [facility] Comment on above: Refill Request Start: 06-11-2017 End: 06-12-2017 Ambulatory CHING MARI Facility:[facility] Procedures Date Procedure Procedure Detail Performing Clinician [...] MD Work Phone: Start: 05-24-2025 Procedure Anat Gutiérrez SERVICE COUNTER CASHIER-C Work Phone: Start: 05-24-[address] Misbah Elkins MD Work Phone: Start: 05-24-[address] Misbah valdes MD Work Phone: Start: 05-24-2025 Lipid 1996 panel - Serum or Plasma Soila Easton APRN.COMPANY MARKER Work Phone: Start: 05-10-2025 Computed tomography of [...] Start: 04-27-2025 Ova [place] parasites identification Dr. aJy Elkins MD Work Phone: Start: 04-27-2025 Ova&parasites [...] Esophagoscp rig transoral hypopharynx crv breanne Senior SALES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 Phone: Start: 11-07-2024 Radiologic exam chest 2 views Misbah michelle MD Work Phone: Start: 08-10-2024 Urnls dip stick/tablet rgnt auto w/o microscopy Soila Easton SALES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 Phone: Start: 01-25-2024 Radiologic exam chest 2 views Tara Long son SALES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 Phone: Start: 01-19-2024 X-ray of both feet Dr. Víctor Huerta Work Phone: Start: 01-11-2024 Lipid 1996 panel - Serum or Plasma Anat Gutiérrez SALES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 Phone: Start: 01-04-2024 Investigation of transfusion reaction Dr. Víctor Huerta Work Phone: Start: 01-04-[address] Víctor Huerta Work Phone: Start: 01-02-2024 CT angiography of chest with contrast Start: 01-02-2024 Plain chest X-ray Start: 01-02-2024 Bacteria identified in Blood by Culture Dr. Víctor Huerta Work Phone: Start: 01-02-2024 SARS-CoV-2, Influenza & RSV (PCR) Start: 07-08-2023 Plain chest X-ray SERVICE COUNTER CASHIER-C SOILA Work Phone: Start: 07-08-2023 SARS-CoV-2 & FLU Antigen (Rapid) SERVICE COUNTER CASHIER-C CATHRYN Borges Work Phone: Start: 06-02-2023 Plain chest X-ray Start: 06-02-2023 CT of chest SERVICE COUNTER CASHIER-C SOILA Work Phone: Start: 06-02-2023 SARS-CoV-2 & FLU Antigen (Rapid) Start: 11-25-2022 Radex spine lumbosacral 2/3 views Misbah Elkins MD Work Phone: Start: 11-11-2022 Radiologic exam chest 2 views Misbah michelle MD Work Phone: Start: 11-04-2022 Plain chest X-ray SERVICE COUNTER CASHIER-C SOILA Work Phone: Start: 11-04-2022 CT of chest, abdomen and pelvis without contrast SERVICE COUNTER CASHIER-C SOILA Work Phone: Start: 11-02-2022 Plain chest X-ray SERVICE COUNTER CASHIER-C SOILA Work Phone: Start: 10-24-2022 Renal function 2000 panel - Serum or Plasma Demarco Moya Start: 10-22-2022 End: 10-22-2022 [facility] medical xm&eval intermediate estab pt Inflammation of orbital region Jaime Aggarwal MD Work Phone: Comment on above: Inflammation of orbital region (Primary Dx) Start: 10-21-2022 End: 10-21-2022 [facility] xm&eval intermediate estab pt Orbital inflammation [employer] Comment on above: Orbital inflammation (Primary Dx) Start: 10-19-2022 CT of head with contrast SERVICE COUNTER CASHIER-C SOILA EASTON Work Phone: Start: 08-22-2022 CT angiography of chest with contrast SERVICE COUNTER CASHIER-C SOILA Work Phone: Start: 08-22-2022 Plain chest X-ray SERVICE COUNTER CASHIER-C SOILA Work Phone: Start: 07-18-2022 INFLUENZA VACCINE QUADRIVALENT 6 MO - 64 YRS IM Soila Rustam SALES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 Phone: Start: 05-28-2022 CT of chest Start: 05-02-2022 Us abdominal real time w/image limited Soila Easton SALES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 Phone: Start: 04-17-2022 Lipid 1996 panel - Serum or Plasma Soila Rustam SALES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 Phone: Start: 03-03-2022 SARS-CoV-2 & FLU Antigen (Rapid) SERVICE COUNTER CASHIER-C Onesimo Teague SERVICE COUNTER CASHIER Work Phone: Start: 03-03-2022 Plain chest X-ray SERVICE COUNTER CASHIER-C Theron Teague SERVICE COUNTER CASHIER Work Phone: Start: 01-10-2021 Colonoscopy Víctor Mcpherson SALES MARKETING.[facility], DNP Work Phone: Start: 08-28-2020 Mammography Víctor Mcpherson SALES MARKETING.[facility], DNP Work Phone: Appendectomy Soila Valdes Work Phone: Bacteria identified in Blood by Culture SERVICE COUNTER CASHIER-C SOILA Work Phone: Bacteria identified in Blood by Culture SERVICE COUNTER CASHIER-C SOILA Work Phone: Cholecystectomy Soila Valdes Work Phone: Enteric Bacteriology SERVICE COUNTER CASHIER-C CATHRYN Micaela Work Phone: H/O: surgery Gabby SILVA H/O: surgery Marshal Friend DO H/O: tubal ligation History of t ubal ligation SERVICE COUNTER CASHIER-C Theron Teague SERVICE COUNTER CASHIER Work Phone: History of appendectomy History of appendectomy SERVICE COUNTER CASHIER-C Theron Teague SERVICE COUNTER CASHIER Work Phone: Respiratory Panel (PCR) SERVICE COUNTER CASHIER-Nichole EASTON Work Phone: Respiratory syncytia l virus antigen assay SERVICE COUNTER CASHIER-Nichole EASTON Work Phone: SARS-CoV-2 & FLU Antigen (Rapid) SARS-CoV-2 & FLU Antigen (Rapid) SERVICE COUNTER CASHIER-Nichole EASTON Work Phone: SARS-CoV-2 & FLU Antigen (Rapid) SERVICE COUNTER CASHIER-C SOILA EASTON Work Phone: SARS-CoV-2 & FLU Antigen (Rapid) SERVICE COUNTER CASHIER-Nichole EASTON Work Phone: Urine culture SERVICE COUNTER CASHIER-Nichole EASTON Work Phone: Plan of Treatment Date Care Activity Detail Author Start: 08-12-2030 Tetanus vaccination Tetanus (Td or Tdap) Booster [facility] Start: 05-24-2030 Lipid panel Lipid Screening [facility] Start: 01-10-2029 Lipid panel Lipid Screening [facility] Start: 2028 PNEUMOCOCCAL (3 - PPSV23 if available, else PCV20) PNEUMOCOCCAL (3 - PPSV23 if available, else PCV20) [facility] Start: 2028 PNEUMOCOCCAL (3 - PPSV23 or PCV20) PNEUMOCOCCAL (3 - PPSV23 or PCV20) [facility] Start: 2028 Pneumococcal vaccination [facility] Start: 03-23-2028 Diabetes Screening Diabetes Screening [facility] Start: 03-22-2028 Diabetes Screening Diabetes Screening [facility] Start: 03-16-2028 Diabetes Screening Diabetes Screening [facility] Start: 12-20-2027 Diabetes Screening Diabetes Screening [facility] Start: 08-12-2027 Diabetes Screening Diabetes Screening [facility] Start: 04-17-2027 Cholesterol [Mass/volume] in Serum or Plasma Cholesterol [facility] Start: 04-17-2027 Lipid 1996 panel - Serum or Plasma Lipid Screening [facility] Start: 04-17-2027 Lipid panel Lipid Screening [facility] Start: 07-21-2027 LIPID SCREEN LIPID SCREEN [facility] Start: 01-10-2027 Diabetes Screening Diabetes Screening [facility] Start: 07-19-2026 LIPID SCREEN LIPID SCREEN [facility] Start: 05-31-2026 Annual PCP Team Chronic Disease Visit Annual PCP Team Chronic Disease Visit [facility] Start: 04-25-2026 Annual PCP Team Chronic Disease Visit Annual PCP Team Chronic Disease Visit [facility] Start: 04-10-2026 Annual PCP Team Chronic Disease Visit Annual PCP Team Chronic Disease Visit [facility] Start: 02-19-2026 DIABETES SCREEN DIABETES SCREEN [facility] Start: 02-19-2026 Diabetes Screening Diabetes Screening [facility] Start: 01-13-2026 Annual PCP Team Chronic Disease Visit Annual PCP Team Chronic Disease Visit [facility] Start: 01-13-2026 BP Controlled (<130/80) BP Controlled (<130/80) [facility] in Start: 01-13-2026 zzBP Controlled (<130/80) (Retired) zzBP Controlled (<130/80) (Retired) [facility] Start: 12-19-2025 Annual PCP Team Chronic Disease Visit Annual PCP Team Chronic Disease Visit [facility] Start: 12-19-2025 BP Controlled (<130/80) BP Controlled (<130/80) [facility] in Start: 11-26-2025 DIABETES SCREEN DIABETES SCREEN [facility] Start: 11-11-2025 DIABETES SCREEN DIABETES SCREEN [facility] Start: 11-07-2025 Annual PCP Team Chronic Disease Visit Annual PCP Team Chronic Disease Visit [facility] Start: 11-07-2025 BP Controlled (<130/80) BP Controlled (<130/80) [facility] in Start: 10-20-2025 DIABETES SCREEN DIABETES SCREEN [facility] Start: 08-30-2025 End: 08-30-2025 Patient encounter procedure 08/30/2025 11:00 AM EST Office Visit Internal Medicine [place] [address] [facility] [place] [address] Soila Easton APRN.IGOR [address] [place] [address] 3 month follow up Internal Medicine [place] Comment on above: 3 month follow up Start: 08-15-2025 Annual PCP Team Chronic Disease Visit Annual PCP Team Chronic Disease Visit [facility] Start: 08-15-2025 BP Controlled (<130/80) BP Controlled (<130/80) [facility] Start: 08-10-2025 Annual PCP Team Chronic Disease Visit Annual PCP Team Chronic Disease Visit [facility] Start: 08-05-2025 Annual PCP Team Chronic Disease Visit Annual PCP Team Chronic Disease Visit [facility] Start: 08-05-2025 BP Controlled (<130/80) BP Controlled (<130/80) [facility] Start: 07-10-2025 [facility] Start: 07-10-2025 End: 07-10-2025 Patient encounter procedure 07/10/2025 11:00 AM EDT Appointment Gastroenterology [address] [address] Jane Farrell MD [address] [address] Chronic recurrent pancreatitis (HCC) [K86.1]4month f/u Gastroenterology Comment on above: Chronic recurrent pancreatitis (HCC) [K8 6.1]4month f/u Start: 07-10-2025 Ct abdomen & pelvis w/contrast material [facility] Start: 07-10-2025 End: 07-10-2025 -Emergency Departmen t Work Phone: Start: 07-07-2025 [facility] Start: 07-06-2025 Patient discharge [facility] Start: 06-20-2025 End: 06-20-2025 Patient encounter procedure 06/20/2025 2:00 PM EDT Office Visit Vascular Surgery [address] [place] [address] Desire Lennon, DO [address] [place] [address] x: Subclavian artery stenosis, left [I77.1] Vascular Surgery Comment on above: x: Subclavian artery stenosis, left [I77 .1] Start: 05-29-2025 Influenza vaccination Influenza Vaccine (#1) [facility] Start: 05-26-2025 End: 05-26-2025 Patient encounter procedure 05/26/2025 11:00 AM EDT Office Visit Internal Medicine [place] [address] [place] [address] Soila Easton APRN.COMPANY MARKER [address] [place] [address] 1 mth fu Internal Medicine [place] Comment on above: 1 mth fu Start: 05-24-2025 [facility] Start: 05-24-2025 Procedure [facility] Start: 05-24-2025 Drug tst prsmv instrmnt chem analyzers pr date [facility] Start: 05-24-2025 Qualitative measurement of opiate agonist [facility] Start: 05-18-2025 Annual PCP Team Chronic Disease Visit Annual PCP Team Chronic Disease Visit [facility] Start: 05-18-2025 BP Controlled (<130/80) BP Controlled (<130/80) [facility] Start: 05-18-2025 End: 05-18-2025 Patient encounter procedure Vasculary Surgery Comment on above: Stenosis of left carotid artery [I65.22] Subclavian arterial stenosis [I77.1] Start: 05-12-2025 End: 05-12-2025 Patient encounter procedure Vasculary Surgery Comment on above: Stenosis of left carotid artery [I65.22] Subclavian arterial stenosis [I77.1] Start: 05-10-2025 [facility] Start: 05-09-2025 End: 08-07-2025 Lipid 1996 panel - Serum or Plasma LIPID PANEL, FASTING Lab Routine Hyperlipidemia Expected: 05/09/2025, Expires: 08/07/2025 [facility] Work Phone: Comment on above: Expected: 05/09/2025, Expires: Start: 04-27-2025 End: 04-27-2025 [facility] Start: 04-25-2025 End: 04-25-2025 Patient encounter procedure 04/25/2025 3:40 PM EDT Office Visit Internal Medicine [place] [address] [place] [address] Misbah Elkins MD [address] [place] [address] [facility] Hypertensive Urgency [facility] [place] Comment on above: [facility]pert[facility]ency Start: 04-25-2025 End: 04-25-2025 ambulatory 04/25/2025 10:00 AM EDT [facility] Neurology Pain [address] [place] [address] Milly Saleh APRN.COMPANY MARKER, DNP [address] [place] [address] Chronic recurrent pancreatitis (HCC) [K86.1]; 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]; Chronic RUQ pain [R10.11, G89.29] Neurology Pain Comment on above: Chronic recurrent pancreatitis (HCC) [K8 6.1]; 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]; Chronic RUQ pain [R10.11, G89.29] Start: 04-19-2025 Patient discharge [facility] Start: 04-18-2025 End: 04-18-2025 Patient encounter procedure 04/18/2025 2:30 PM EDT Office Visit Gastroenterology [address] [address] Juan Senior APRN.COMPANY MARKER [address] [place] [address] Follow up ERCP Gastroenterology Comment on above: Follow up ERCP Start: 04-18-2025 Care planning and problem solving actions [facility] Start: 04-17-2025 DIABETES SCREEN DIABETES SCREEN [facility] Start: 04-17-2025 End: 04-17-2025 Patient encounter procedure 04/17/2025 1:00 PM EDT Office Visit Internal Medicine [place] [address] [place] [address] Soila Easton APRN.COMPANY MARKER [address] [place], [place] [address] 3 month follow up [facility] [place] Comment on above: 3 month follow up Start: 04-16-2025 Application of intermittent pneumatic compression device [facility] Start: 04-16-2025 Following clinical pathway protocol [facility] Start: 04-16-2025 Aspiration precautions [facility] Start: 04-16-2025 Assessment of risk of venous thromboembolism [facility] Start: 04-16-2025 Insertion of catheter into peripheral vein [facility] Start: 04-16-2025 Measuring intake and output [facility] Start: 04-16-2025 Oxygen therapy [facility] Start: 04-16-2025 Providing care according to standard [facility] Start: 04-16-2025 Provision of activity privileges [facility] Start: 04-16-2025 Referral for physical therapy [facility] Start: 04-16-2025 Referral to service [facility] Start: 04-16-2025 [facility] Start: 04-16-2025 Verification routine [facility] Start: 04-16-2025 Admission procedure [facility] Start: 04-16-2025 Hospital admission, emergency, from emergency room, medical nature [facility] Start: 04-16-2025 Inhalation therapy procedure [facility] Start: 04-12-2025 End: 04-12-2025 Patient encounter procedure 04/12/2025 11:00 AM EDT Office Visit Pulmonary Medicine [address] [place] [address] Madeline Sebastian MD [address] [place] [address] hosp follow up [facility] Pulmonary Medicine Comment on above: hosp follow up [facility] Start: 04-10-2025 End: 04-10-2025 Patient encounter procedure 04/10/2025 1:40 PM EDT Office Visit Internal Medicine [place] [address] [place] [address] Nicolas Greer APRN.BIT SANDER [address] [place] [address] rescheduled from 04/04 [facility] [place] Comment on above: rescheduled from 04/04 Start: 04-04-2025 End: 04-04-2025 Patient encounter procedure 04/04/2025 3:40 PM EDT Office Visit Internal Medicine [place] [address] [place] [address] Misbah Elkins MD [address] [place] [address] hosp follow up from [facility] for pneumonia 03/15-03/23 Internal [facility] [place] Comment on above: hosp follow up from [facility] for pneumonia 03/15-03/23 Start: 04-04-2025 End: 04-04-2025 ambulatory 04/04/2025 2:30 PM EDT [facility] Neurology Pain [address] [place] [address] Milly Saleh APRN.COMPANY MARKER, DNP [address] [place], [place] [id number] Chronic recurrent pancreatitis (HCC) [K86.1]; 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]; Chronic RUQ pain [R10.11, G89.29] Neurology Pain Comment on above: Chronic recurrent pancreatitis (HCC) [K8 6.1]; 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]; Chronic RUQ pain [R10.11, G89.29] Start: 03-29-2025 End: 03-29-2025 Patient encounter procedure 03/29/2025 11:40 AM EDT Office Visit Internal Medicine [place] [address] [place] [address] Kervin Salmeron MD [address] [place] [address] hosp follow up [facility] Internal Medicine [place] Comment on above: hosp follow up [facility] Start: 03-15-2025 Patient discharge [facility] Start: 03-15-2025 End: 03-15-2025 [facility] Start: 03-15-2025 Airway suction technique [facility] Start: 03-15-2025 End: 03-15-2025 Patient encounter procedure 03/15/2025 5:40 PM EDT Office Visit Internal Medicine [place] [address] [place] [address] Soila Easton APRN.COMPANY MARKER [address] [place] [address] blood pressure low at ERCP procedure on 03/10 at [facility] Internal Medicine [place] Comment on above: blood pressure low at ERCP procedure on 03/10 at [facility] Start: 03-15-2025 Consultation [facility] Start: 03-15-2025 Consultation [facility] Start: 03-15-2025 Continuous pulse oximetry [facility] Start: 03-15-2025 Care planning and problem solving actions [facility] Start: 03-15-2025 Following clinical pathway protocol [facility] Start: 03-15-2025 [facility] Start: 03-14-2025 End: 03-14-2025 ambulatory 03/14/2025 10:00 AM EDT [facility] Neurology Pain [address] [place] [address] Milly Saleh APRN.COMPANY MARKER, DNP [address] [place] [address] Chronic recurrent pancreatitis (HCC) [K86.1]; 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]; Chronic RUQ pain [R10.11, G89.29] Neurology Pain Comment on above: Chronic recurrent pancreatitis (HCC) [K8 6.1]; 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]; Chronic RUQ pain [R10.11, G89.29] Start: 03-14-2025 Triacylglycerol lipase measurement [facility] Start: 03-14-2025 Following clinical pathway protocol [facility] Start: 03-14-2025 Ambulation without limitation [facility] Start: 03-14-2025 Assessment of risk of venous thromboembolism [facility] Start: 03-14-2025 Insertion of catheter into peripheral vein [facility] Start: 03-14-2025 Oxygen therapy [facility] Start: 03-14-2025 Providing care according to standard [facility] Start: 03-14-2025 [facility] Start: 03-14-2025 Consultation [facility] Start: 03-14-2025 Inhalation therapy procedure [facility] Start: 03-14-2025 Patient referral to dietitian [facility] Start: 03-13-2025 Verification routine [facility] Start: 03-13-2025 Admission procedure [facility] Start: 03-13-2025 Hospital admission, emergency, from emergency room, medical nature [facility] Start: 03-13-2025 End: 03-13-2025 [facility] Start: 03-10-2025 End: 03-10-2025 Patient encounter procedure 03/10/2025 1:00 PM EDT Appointment Gastroenterology [address] [address] Jane Farrell MD [address] [place] [address] Other chronic pancreatitis (HCC) [K86.1] Gastroenterology Comment on above: Other chronic pancreatitis (HCC) [K86.1] Start: 02-26-2025 End: 02-26-2025 [facility] Start: 02-06-2025 End: 02-06-2025 Patient encounter procedure 02/06/2025 9:00 AM EDT Appointment Gastroenterology [address] [address] Jane Farrell MD [address] [place] [address] Other chronic pancreatitis (HCC) [K86.1]w/o interventions Gastroenterology Comment on above: Other chronic pancreatitis (HCC) [K86.1] w/o interventions Start: 01-30-2025 End: 01-30-2025 Anesthesia consultation 01/30/2025 11:10 AM EDT PAT Pre Anesthesia [address] [place] [address] pre procedure 02/06 Pre Anesthesia Comment on above: pre procedure 02/06 Start: 01-27-2025 [facility] Start: 01-27-2025 [facility] Start: 01-24-2025 Annual PCP Team Chronic Disease Visit Annual PCP Team Chronic Disease Visit [facility] Start: 01-13-2025 End: 01-13-2025 Patient encounter procedure [facility] [place] Comment on above: multiple concerns multiple concerns. S ee TE from 01/09/25. Start: 01-11-2025 Annual PCP Team Chronic Disease Visit Annual PCP Team Chronic Disease Visit [facility] Start: 01-11-2025 BP Controlled (<130/80) BP Controlled (<130/80) [facility] Start: 01-05-2025 End: 01-05-2025 ambulatory 01/05/2025 1:00 PM EDT [facility] Pain [address] [place] [address] Milly Saleh APRN.COMPANY MARKER, DNP [address] [place], [place] [id number] Chronic recurrent pancreatitis (HCC) [K86.1]; 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]; Chronic RUQ pain [R10.11, G89.29] Neurology Pain Comment on above: Chronic recurrent pancreatitis (HCC) [K8 6.1]; 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]; Chronic RUQ pain [R10.11, G89.29] Start: 01-02-2025 End: 01-02-2025 Patient encounter procedure 01/02/2025 8:30 AM EDT Office Visit Neurology Pain [address] [place] [address] [place] [address] [place] [address] [facility]) Neurology Pain Comment on above: [facility]ULT TO [facility] (CHR ONIC PAIN) Start: 01-01-2025 [facility] Start: 01-01-2025 [facility] Start: 12-27-2024 End: 12-27-2024 Patient encounter procedure 12/27/2024 1:00 PM EDT Appointment Gastroenterology [address] [address] Jane Farrell MD [address] [place] [id number] Other chronic pancreatitis (HCC) [K86.1] Gastroenterology Comment on above: Other chronic pancreatitis (HCC) [K86.1] Start: 12-24-2024 [facility] Start: 12-19-2024 End: 03-20-2025 CBC W Auto Differential panel - Blood [facility] Comment on above: Expected: 12/19/2024, Expires: Start: 12-19-2024 End: 03-20-2025 Comprehensive metabolic 2000 panel - Serum or Plasma [facility] Comment on above: Expected: 12/19/2024, Expires: Start: 12-19-2024 End: 03-20-2025 Lipase [Enzymatic activity/volume] in Serum or Plasma [facility] Comment on above: Expected: 12/19/2024, Expires: Start: 12-16-2024 Patient referral [facility] Work Phone: Start: 12-15-2024 Annual PCP Team Chronic Disease Visit Annual PCP Team Chronic Disease Visit [facility] Start: 12-15-2024 BP Controlled (<130/80) BP Controlled (<130/80) [facility] Start: 12-12-2024 Patient discharge [facility] Start: 12-12-2024 End: 12-12-2024 Patient encounter procedure 12/12/2024 11:00 AM EDT Office Visit Internal Medicine [address] [place] [address] Misbah Elkins MD [address] [place], [place] [address] 1 Month F/U [facility] [place] Comment on above: 1 Month F/U Start: 12-10-2024 Respiratory Culture Respiratory Culture [facility] Start: 12-09-2024 Referral to gastroenterology service [facility] Start: 12-08-2024 Videoswallow [facility] Start: 12-08-2024 Inhalation therapy procedure [facility] Start: 12-07-2024 Speech therapy assessment [facility] Start: 12-07-2024 Continuous pulse oximetry [facility] Start: 12-07-2024 [facility] Start: 12-05-2024 Referral to service [facility] Start: 12-05-2024 Consultation [facility] Start: 12-05-2024 Continuous positive airway pressure ventilation treatment [facility] Start: 12-04-2024 Following clinical pathway protocol [facility] Start: 12-04-2024 Ambulation without limitation [facility] Start: 12-04-2024 Assessment of risk of venous thromboembolism [facility] Start: 12-04-2024 Bacteria identified in Sputum by Culture [facility] Start: 12-04-2024 Catheterization of vein [facility] Start: 12-04-2024 Incentive spirometry [facility] Start: 12-04-2024 Insertion of catheter into peripheral vein [facility] Start: 12-04-2024 Measuring intake and output [facility] Start: 12-04-2024 Oxygen therapy [facility] Start: 12-04-2024 Providing care according to standard [facility] Start: 12-04-2024 Referral to service [facility] Start: 12-04-2024 Tobacco use cessation education [facility] Start: 12-04-2024 [facility] Start: 12-04-2024 Respiratory pathogens DNA and RNA panel - Respiratory specimen by KANDY with probe detection [facility] Start: 12-04-2024 Verification routine [facility] Start: 12-04-2024 Admission procedure [facility] Start: 12-04-2024 Hospital admission, emergency, from emergency room, medical nature [facility] Start: 12-04-2024 End: 12-04-2024 [facility] Start: 12-01-2024 End: 12-01-2024 Patient encounter procedure 12/01/2024 10:00 AM EST Appointment Gastroenterology [address] [place] [id number] Jane Farrell MD [address] [address] Chronic recurrent pancreatitis (HCC) [K86.1] Gastroenterology Comment on above: Chronic recurrent pancreatitis (HCC) [K8 6.1] Start: 11-29-2024 End: 02-28-2025 Lipid 1996 panel - Serum or Plasma LIPID PANEL BASIC Lab Routine Hyperlipidemia Expected: 11/29/2024, Expires: 02/28/2025 [facility] Work Phone: Comment on above: Expected: 11/29/2024, Expires: Start: 11-07-2024 End: 11-07-2024 Patient encounter procedure [facility] [place] Comment on above: 3 month follow up 3 month follow up-di scuss elevated WBC Start: 11-02-2024 End: 11-02-2024 Patient encounter procedure 11/02/2024 2:00 PM EST Office Visit Gastroenterology [address] [address] Juan Senior APRN.COMPANY MARKER [address] [place] [address] Chronic recurrent pancreatitis (HCC) [K86.1]; Alcohol-induced chronic [...] abdominal pain Nausea Expected: 08/10/2024, Expires: 11/09/2024 [facility] Comment on above: Expected: 08/10/2024, Expires: Start: 08-10-2024 End: 11-09-2024 Comprehensive metabolic 2000 panel - Serum or Plasma COMPREHENSIVE METABOLIC PANEL Lab Routine Upper abdominal pain Nausea Expected: 08/10/2024, Expires: 11/09/2024 [facility] Comment on above: Expected: 08/10/2024, Expires: Start: 08-10-2024 End: 11-09-2024 Hemoglobin A1c in Blood HEMOGLOBIN A1C Lab Routine Urinary incontinence, unspecified type Urinary frequency Elevated glucose Expected: 08/10/2024, Expires: 11/09/2024 [facility] Comment on above: Expected: 08/10/2024, Expires: Start: 08-10-2024 End: 11-09-2024 Lipase [Enzymatic activity/volume] in Serum or Plasma LIPASE Lab Routine Upper abdominal pain Nausea Expected: 08/10/2024, Expires: 11/09/2024 [facility] Work Phone: Comment on above: Expected: 08/10/2024, Expires: Start: 08-05-2024 End: 11-04-2024 CBC W Auto Differential panel - Blood [facility] Work Phone: Comment on above: Expected: 08/05/2024, Expires: Start: 07-13-2024 End: 07-13-2024 Patient encounter procedure 07/13/2024 3:00 PM EDT Office Visit [facility] [place] [address] [place], [place] [address] Soila Easton APRN.COMPANY MARKER [address] [place], [place] [address] medication f/u [facility] [place] Comment on above: medication f/u Start: 07-05-2024 HPV TESTING HPV TESTING [facility] Start: 07-05-2024 Screening for malignant neoplasm of cervix HPV Testing [facility] Start: 06-21-2024 End: 06-21-2024 Patient encounter procedure 06/21/2024 2:00 PM EDT Office Visit Internal Medicine [place] [address] [place] [address] Misbah Elkins MD [address] [facility] [place] [address] med check [facility] [place] Comment on above: med check Start: 05-29-2024 Covid-19 Vaccine () Covid-19 Vaccine () [facility] Start: 05-29-2024 Covid-19 Vaccine () Covid-19 Vaccine () [facility] Start: 05-29-2024 Influenza vaccination [facility] Start: 05-23-2024 End: 05-23-2024 Patient encounter procedure 05/23/2024 1:00 PM EDT Office Visit Internal Medicine [place] [address] [place] [address] Soila Easton APRN.COMPANY MARKER [address] [facility] [place] [address] medication f/u [facility] [place] Comment on above: medication f/u Start: 05-17-2024 End: 05-17-2024 Patient encounter procedure 05/17/2024 4:00 PM EDT Office Visit Internal Medicine [place] [address] [place] [address] Misbah Elkins MD [address] [facility] [place] [address] medication follow up [facility] [place] Comment on above: medication follow up Start: 05-10-2024 End: 05-10-2024 Patient encounter procedure 05/10/2024 1:40 PM EDT Office Visit Internal Medicine [place] [address] [place] [address] Soila Easton APRN.COMPANY MARKER [address] [place] [address] 3 month follow up [facility] [place] Comment on above: 3 month follow up [facility] Start: 04-21-2024 End: 04-21-2024 Patient encounter procedure 04/21/2024 8:20 AM EDT Office Visit Internal Medicine [place] [address] [place] [address] Soila Easton APRN.COMPANY MARKER [address] [place] [address] 3 [facility] [place] Comment on above: 3 month follow up [facility] Start: 04-15-2024 ANNUAL PCP TEAM CHRONIC DISEASE VISIT ANNUAL PCP TEAM CHRONIC DISEASE VISIT [facility] Start: 04-15-2024 BP CONTROLLED (<130/80) BP CONTROLLED (<130/80) [facility] Start: 03-26-2024 DIABETES SCREEN DIABETES SCREEN [facility] Start: 03-18-2024 End: 03-18-2024 Patient encounter procedure 03/18/2024 1:20 PM EDT Office Visit Internal [facility] [address] [place] [address] Soila Easton APRN.COMPANY MARKER [address] [place] [address] 3 month [facility] [place] Comment on above: 3 month follow up [facility] Start: 01-25-2024 End: 01-25-2024 Patient encounter procedure 01/25/2024 1:20 PM EDT Office Visit [facility] [address] [place] [address] Tara Youngblood APRN.COMPANY MARKER [address] [place] [address] [facility] ER follow up, acute pain right foot and ankle, no clot Family [facility] Comment on above: [facility] ER follow up, acute pain right foot and ankle, no clot Start: 01-19-2024 [facility] Start: 01-19-2024 End: 04-19-2024 Basic metabolic 2000 panel - Serum or Plasma BASIC METABOLIC PANEL Lab Routine Hyponatremia Expected: 01/19/2024 (Approximate), Expires: 04/19/2024 [facility] Work Phone: Comment on above: Expected: 01/19/2024 (Approximate), Expi res: 04/19/2024 Start: 01-19-2024 End: 04-19-2024 CBC W Auto Differential panel - Blood COMPLETE BLOOD COUNT AND DIFFERENTIAL Lab Routine Leukocytosis, unspecified type Expected: 01/19/2024 (Approximate), Expires: 04/19/2024 [facility] Work Phone: Comment on above: Expected: 01/19/2024 (Approximate), Expi res: 04/19/2024 Start: 01-11-2024 Colonoscopy COLONOSCOPY [facility] Start: 01-11-2024 COLORECTAL CANCER SCREENING COLORECTAL CANCER SCREENING [facility] Start: 01-11-2024 Screening for malignant neoplasm of colon [facility] Start: 01-05-2024 Patient discharge [facility] Start: 01-05-2024 Blood chemistry [facility] Start: 01-04-2024 Respiratory microbial culture Respiratory Culture [facility] Start: 01-04-2024 [facility] Start: 01-03-2024 Respiratory secretion precautions [facility] Start: 01-02-2024 Assessment of risk of venous thromboembolism [facility] Start: 01-02-2024 Inhalation therapy procedure [facility] Start: 01-02-2024 Insertion of catheter into peripheral vein [facility] Start: 01-02-2024 Introduction of urinary catheter [facility] Start: 01-02-2024 Measuring intake and output [facility] Start: 01-02-2024 Oxygen therapy [facility] Start: 01-02-2024 Providing care according to standard [facility] Start: 01-02-2024 Provision of activity privileges [facility] Start: 01-02-2024 Referral to service [facility] Start: 01-02-2024 Tobacco use cessation education [facility] Start: 01-02-2024 [facility] Start: 01-02-2024 Following clinical pathway protocol [facility] Start: 01-02-2024 Legionella pneumophila Ag [Presence] in Urine [facility] Start: 01-02-2024 Respiratory pathogens DNA and RNA panel - Respiratory specimen by KANDY with probe detection [facility] Start: 01-02-2024 End: 01-02-2024 Streptococcus pneumoniae antigen assay [facility] Start: 01-02-2024 Hospital admission, emergency, from emergency room, medical nature [facility] Start: 01-02-2024 Admission procedure [facility] Start: 01-02-2024 Verification routine [facility] Start: 01-02-2024 End: 01-02-2024 Blood culture [facility] Start: 01-02-2024 [facility] Start: 01-02-2024 Bacteria identified in Blood by Culture Blood Culture [facility] Start: 01-02-2024 Legionella Antigen Legionella Antigen [facility] Start: 01-02-2024 Streptococcus pneumoniae Antigen (M Streptococcus pneumoniae Antigen (M [facility] Start: 12-27-2023 ANNUAL PCP TEAM CHRONIC DISEASE VISIT ANNUAL PCP TEAM CHRONIC DISEASE VISIT [facility] Start: 12-16-2023 End: 03-16-2024 25-hydroxyvitamin D3 [Mass/volume] in Serum or Plasma VITAMIN D 25 HYDROXY Lab Routine Vitamin D deficiency Expected: 12/16/2023, Expires: 03/16/2024 [facility] Work Phone: Comment on above: Expected: 12/16/2023, Expires: Start: 12-16-2023 End: 03-16-2024 CBC W Auto Differential panel - Blood CBC + DIFF Lab Routine Alcohol-induced chronic pancreatitis (HCC) Tachycardia Hyperlipidemia, unspecified hyperlipidemia type Insomnia, unspecified type Vitamin D deficiency Chronic obstructive pulmonary disease, unspecified COPD type (HCC) Prediabetes Expected: 12/16/2023, Expires: 03/16/2024 [facility] Work Phone: Comment on above: Expected: 12/16/2023, Expires: 4 Start: 12-16-2023 End: 03-16-2024 Comprehensive metabolic 2000 panel - Serum or Plasma COMP METABOLIC PANEL Lab Routine Alcohol-induced chronic pancreatitis (HCC) Tachycardia Hyperlipidemia, unspecified hyperlipidemia type Insomnia, unspecified type Vitamin D deficiency Chronic obstructive pulmonary disease, unspecified COPD type (HCC) Prediabetes Expected: 12/16/2023, Expires: 03/16/2024 [facility] [facility] Work Phone: Comment on above: Expected: 12/16/2023, Expires: 4 Start: 12-16-2023 End: 03-16-2024 Lipid 1996 panel - Serum or Plasma LIPID PANEL BASIC Lab Routine Hyperlipidemia, unspecified hyperlipidemia type Expected: 12/16/2023, Expires: 03/16/2024 [facility] Work Phone: Comment on above: Expected: 12/16/2023, Expires: 4 Start: 11-29-2023 ANNUAL PCP TEAM CHRONIC DISEASE VISIT ANNUAL PCP TEAM CHRONIC DISEASE VISIT [facility] Start: 11-29-2023 BP CONTROLLED (<130/80) BP CONTROLLED (<130/80) [facility] Start: 11-27-2023 BP CONTROLLED (<130/80) BP CONTROLLED (<130/80) [facility] Start: 11-25-2023 ANNUAL PCP TEAM CHRONIC DISEASE VISIT ANNUAL PCP TEAM CHRONIC DISEASE VISIT [facility] Start: 11-11-2023 ANNUAL PCP TEAM CHRONIC DISEASE VISIT ANNUAL PCP TEAM CHRONIC DISEASE VISIT [facility] Start: 11-11-2023 BP CONTROLLED (<130/80) BP CONTROLLED (<130/80) [facility] Start: 10-20-2023 Basic metabolic 2000 panel - Serum or Plasma Basic Metabolic Panel [facility] Start: 08-31-2023 Pneumococcal Vaccine: 50+ (3 of 3 - PCV20 or PCV21) Pneumococcal Vaccine: 50+ (3 of 3 - PCV20 or PCV21) [facility] Start: 08-27-2023 ANNUAL PCP TEAM CHRONIC DISEASE VISIT ANNUAL PCP TEAM CHRONIC DISEASE VISIT [facility] Start: 07-18-2023 ANNUAL PCP TEAM CHRONIC DISEASE VISIT ANNUAL PCP TEAM CHRONIC DISEASE VISIT [facility] Start: 07-18-2023 BP CONTROLLED (<130/80) BP CONTROLLED (<130/80) [facility] Start: 07-08-2023 [facility] Start: 06-30-2023 Patient referral [facility] Work Phone: Start: 06-02-2023 [facility] Start: 06-02-2023 CT of chest Low Dose CT Lung Screening [facility] Start: 06-02-2023 CT THORAX LUNG CANCER SCR C- CT THORAX LUNG CANCER SCR C- [facility] Start: 05-29-2023 Covid-19 Vaccine ( season) Covid-19 Vaccine ( season) [facility] Start: 05-29-2023 Influenza vaccination [facility] Start: 05-27-2023 BP CONTROLLED (<130/80) BP CONTROLLED (<130/80) [facility] Start: 2023 RSV Vaccine (1 - 1-dose 60+ series) RSV Vaccine (1 - 1-dose 60+ series) [facility] Start: 2023 RSV Vaccine (1 - Risk 60-74 years 1-dose series) RSV Vaccine (1 - Risk 60-74 years 1-dose series) [facility] Start: 04-17-2023 ANNUAL PCP TEAM CHRONIC DISEASE VISIT ANNUAL PCP TEAM CHRONIC DISEASE VISIT [facility] Start: 04-17-2023 BP CONTROLLED (<130/80) BP CONTROLLED (<130/80) [facility] Start: 04-17-2023 COVID-19 VACCINE (3 - Booster for Pfizer series) COVID-19 VACCINE (3 - Booster for Pfizer series) [facility] Comment on above: Postponed from 12/27/2021 (Declined at t his time) Postponed from 09/23 (Declined at this time) Start: 04-17-2023 COVID-19 VACCINE (3 - Pfizer series) COVID-19 VACCINE (3 - Pfizer series) [facility] Comment on above: Postponed from 09/23/2021 (Declined at t his time) Start: 04-17-2023 HIV SCREENING HIV SCREENING [facility] Comment on above: Postponed from 1981 (Declined at t his time) Start: 04-17-2023 PAP TESTING PAP TESTING [facility] Comment on above: Postponed from 07/05/2020 (Declined at t his time) Start: 04-17-2023 SHINGRIX VACCINE (1 of 2) SHINGRIX VACCINE (1 of 2) [facility] Comment on above: Postponed from 2013 (Declined at t his time) Start: 04-15-2023 End: 06-15-2023 Hepatic function 2000 panel - Serum or Plasma [facility] Work Phone: Comment on above: Expected: 04/15/2023, Expires: Start: 04-08-2023 Zoledronic acid therapy ALPHA-1 ANTITRYPSIN DEFICIENCY SCREENING [facility] Comment on above: Postponed from 1993 (Declined at t his time) Start: 03-10-2023 End: 05-10-2023 Lipid 1996 panel - Serum or Plasma LIPID PANEL BASIC Lab Routine Hyperlipidemia Expected: 03/10/2023, Expires: 05/10/2023 [facility] Work Phone: Comment on above: Expected: 03/10/2023, Expires: 3 Start: 03-09-2023 EPVPLASTIC, Provider: Yrn Ortega, Status: Pen, Time: 1:15 PM EPVPLASTIC, Provider: Yrn Ortega, Status: Pen, Time: 1:15 PM [id number] Work Phone: Start: 02-28-2023 End: 04-30-2023 Hemoglobin A1c in Blood HGB A1C Lab Routine Prediabetes Expected: 02/28/2023 (Approximate), Expires: 04/30/2023 [facility] Work Phone: Comment on above: Expected: 02/28/2023 (Approximate), Expi res: 04/30/2023 Start: 01-28-2023 NPVPLASTIC, Provider: Yrn Ortega, Status: Pen, Time: 2:00 PM NPVPLASTIC, Provider: Yrn Ortega, Status: Pen, Time: 2:00 PM [id number] l [id number] Work Phone: Start: 12-15-2022 End: 12-15-2022 Patient encounter procedure 12/15/2022 Office Visit Family Practice Lalito Hoskins MD [address] [place] [address], [address] [place] [id number] [facility] Start: 12-03-2022 NPVPLASTIC, Provider: Yrn Ortega, Status: Pen, Time: 3:30 PM NPVPLASTIC, Provider: Yrn Ortega, Status: Pen, Time: 3:30 PM [id number] [facility] Work Phone: Start: 12-03-2022 Patient encounter procedure [facility] Start: 11-28-2022 End: 01-28-2023 Basic metabolic 2000 panel - Serum or Plasma BASIC METABOLIC PNL Lab Routine Prediabetes Expected: 11/28/2022, Expires: 01/28/2023 [facility] Work Phone: Comment on above: Expected: 11/28/2022, Expires: 3 Start: 11-27-2022 End: 01-27-2023 Urinalysis complete panel - Urine URINALYSIS, WITH MICROSCOPIC Lab Routine CHUY (acute kidney injury) (HCC) Expected: 11/27/2022, Expires: 01/27/2023 [facility] Work Phone: Comment on above: Expected: 11/27/2022, Expires: 3 Start: 11-26-2022 End: 01-26-2023 Hemoglobin A1c in Blood [facility] Work Phone: Comment on above: Expected: 11/26/2022, Expires: 3 Start: 11-26-2022 End: 01-26-2023 VITAMIN B1 (THIAMINE), WHOLE BLOOD [facility] Work Phone: Comment on above: Expected: 11/26/2022, Expires: 3 Start: 11-26-2022 End: 01-26-2023 VITAMIN B5(PANTOTHENIC AID) BIOASSAY [facility] Work Phone: Comment on above: Expected: 11/26/2022, Expires: 3 Start: 11-25-2022 End: 01-25-2023 Cobalamin (Vitamin B12) [Mass/volume] in Serum or Plasma [facility] Work Phone: Comment on above: Expected: 11/25/2022, Expires: 3 Start: 11-25-2022 End: 01-25-2023 Renal function 2000 panel - Serum or Plasma [facility] Work Phone: Comment on above: Expected: 11/25/2022, Expires: Start: 11-11-2022 End: 01-11-2023 Basic metabolic 2000 panel - Serum or Plasma [facility] Work Phone: Comment on above: Expected: 11/11/2022, Expires: Start: 11-11-2022 End: 11-11-2022 Patient encounter procedure 11/11/2022 Office Visit Ophthalmology Deny Dumont MD [address] [place] [address] [facility] ([facility] Start: 11-07-2022 Patient discharge [facility] Start: 11-06-2022 End: 11-06-2022 Removal of urinary catheter [facility] Start: 11-06-2022 Care planning and problem solving actions [facility] Start: 11-06-2022 [facility] Start: 11-05-2022 Referral to occupational therapist [facility] Start: 11-05-2022 Referral to service [facility] Start: 11-04-2022 Care planning and problem solving actions [facility] Start: 11-04-2022 End: 11-04-2022 Blood culture [facility] Start: 11-04-2022 Referral to drier and pulverizer tender [facility] Start: 11-04-2022 [facility] Start: 11-04-2022 [facility] Start: 11-03-2022 Care planning and problem solving actions [facility] Start: 11-03-2022 Oxygen therapy [facility] Start: 11-02-2022 Following clinical pathway protocol [facility] Start: 11-02-2022 Physiotherapy of chest [facility] Start: 11-02-2022 Consultation [facility] Start: 11-02-2022 Continuous pulse oximetry [facility] Start: 11-02-2022 Dual pressure spontaneous ventilation support [facility] Start: 11-02-2022 Inhalation therapy procedure [facility] Start: 11-01-2022 Admission procedure [facility] Start: 10-25-2022 End: 10-26-2023 Phenylephrine 0.25% Topical (Preparation H) 1 application Ointment Every 8 Hours ; OintmentDOSE = 1 application(s) Topical Every 8 Hours, PRN HemorrhoidsApply to Buttock Start: 25-Oct-2022 End: 25-Oct-2023 Ordered: 25-Oct-2022 Justyn Richter Intent [facility] Start: 10-24-2022 End: 10-25-2023 [facility] Start: 10-19-2022 Blood culture [facility] Start: 08-22-2022 [facility] Start: 07-18-2022 End: 09-17-2022 DALLAS BY IFA SCREEN [facility] Work Phone: Comment on above: Expected: 07/18/2022, Expires: 2 Start: 07-18-2022 End: 09-17-2022 C reactive protein [Mass/volume] in Serum or Plasma [facility] Work Phone: Comment on above: Expected: 07/18/2022, Expires: 2 Start: 07-18-2022 End: 09-17-2022 Erythrocyte sedimentation rate [facility] Work Phone: Comment on above: Expected: 07/18/2022, Expires: 2 Start: 07-18-2022 End: 09-17-2022 Rheumatoid factor [Units/volume] in Serum or Plasma [facility] Work Phone: Comment on above: Expected: 07/18/2022, Expires: 2 Start: 06-28-2022 Influenza vaccination Influenza Vaccine (#1) [facility] Start: 05-29-2022 Influenza vaccination [facility] Start: 04-17-2022 End: 06-17-2022 25-hydroxyvitamin D3 [Mass/volume] in Serum or Plasma [facility] Work Phone: Comment on above: Expected: 04/17/2022, Expires: 2 Start: 04-17-2022 End: 06-17-2022 CBC W Auto Differential panel - Blood [facility] Work Phone: Comment on above: Expected: 04/17/2022, Expires: 2 Start: 04-17-2022 End: 06-17-2022 Comprehensive metabolic 2000 panel - Serum or Plasma [facility] Work Phone: Comment on above: Expected: 04/17/2022, Expires: 2 Start: 04-17-2022 End: 06-17-2022 Ferritin [Mass/volume] in Serum or Plasma [facility] Work Phone: Comment on above: Expected: 04/17/2022, Expires: 2 Start: 04-17-2022 End: 06-17-2022 Iron and Iron binding capacity panel - Serum or Plasma [facility] Work Phone: Comment on above: Expected: 04/17/2022, Expires: 2 Start: 04-17-2022 End: 06-17-2022 Lipid 1996 panel - Serum or Plasma [facility] Work Phone: Comment on above: Expected: 04/17/2022, Expires: 2 Start: 04-17-2022 End: 06-17-2022 Thyrotropin [Units/volume] in Serum or Plasma [facility] Work Phone: Comment on above: Expected: 04/17/2022, Expires: 2 Start: 03-26-2022 ANNUAL PCP TEAM CHRONIC DISEASE VISIT ANNUAL PCP TEAM CHRONIC DISEASE VISIT [facility] Start: 03-26-2022 BP CONTROLLED (<130/80) BP CONTROLLED (<130/80) [facility] Start: 03-03-2022 [facility] Work Phone: Start: 02-11-2022 End: 04-13-2022 Basic metabolic 2000 panel - Serum or Plasma BASIC METABOLIC PNL Lab Routine Essential hypertension, benign Expected: 02/11/2022, Expires: 04/13/2022 [facility] Work Phone: Comment on above: Expected: 02/11/2022, Expires: 2 Start: 02-11-2022 End: 04-13-2022 SCHEDULE LAB TESTING SCHEDULE LAB TESTING Lab Routine Expected: 02/11/2022, Expires: 04/13/2022 [facility] Work Phone: Comment on above: Expected: 02/11/2022, Expires: 2 Start: 09-23-2021 COVID-19 Vaccine (3 - Booster for Pfizer series) COVID-19 Vaccine (3 - Booster for Pfizer series) [facility] Start: 09-23-2021 COVID-19 VACCINE (3 - Pfizer series) COVID-19 VACCINE (3 - Pfizer series) [facility] Start: 08-28-2021 Mammography [facility] Start: 08-28-2021 Screening for malignant neoplasm of breast Mammogram Screening [facility] Start: 07-09-2021 COVID-19 VACCINE (2 - Pfizer 3-dose series) COVID-19 VACCINE (2 - Pfizer 3-dose series) [facility] Start: 07-09-2021 COVID-19 VACCINE (2 - Pfizer series) COVID-19 VACCINE (2 - Pfizer series) [facility] Start: 07-05-2020 PAP TESTING PAP TESTING [facility] Start: 07-05-2020 Screening for malignant neoplasm of cervix [facility] Start: 12-20-2015 FECAL OCCULT BLOOD FECAL OCCULT BLOOD [facility] Start: 12-20-2015 Screening for malignant neoplasm of colon Fecal Occult Blood [facility] Start: 2013 Measurement of occult blood in single stool specimen FIT [facility] Start: 2013 Screening for malignant neoplasm of colon CRC Screening [facility] Start: 2013 Shingles (RZV) Vaccine (1 of 2) Shingles (RZV) Vaccine (1 of 2) [facility] Start: 2013 SHINGRIX VACCINE (1 of 2) SHINGRIX VACCINE (1 of 2) [facility] Start: 2008 Cholesterol [Mass/volume] in Serum or Plasma Cholesterol [facility] Start: 2008 COLOGUARD (FIT-DNA) COLOGUARD (FIT-DNA) [facility] Start: [address] COLONOGRAPHY [facility] Start: 2008 Screening for malignant neoplasm of colon [facility] Start: 2008 SIGMOIDOSCOPY SIGMOIDOSCOPY [facility] Start: 2003 Screening for malignant neoplasm of breast Mammography [facility] Start: 1993 Zoledronic acid therapy ALPHA-1 ANTITRYPSIN DEFICIENCY SCREENING [facility] Start: 1984 Screening for malignant neoplasm of cervix Pap Smear [facility] Start: 1981 Hepatitis C screening Hepatitis C Antibody [facility] Start: 1981 HIV SCREENING HIV SCREENING [facility] Start: 1981 HIV screening HIV Screening [facility] Start: 1981 Tetanus + diphtheria + acellular pertussis vaccine (product) Tdap [facility]oster [facility] Start: 1978 HIV screening HIV Test [facility] Start: 1963 Abdominal aortic aneurysm screening Pulmonary Function Testing [facility] Start: 1963 Screening for malignant neoplasm of colon [facility] Anion gap in Serum o r Plasma [facility] Anion gap measurement [facility] Bacteria identified in Blood by Culture Blood Culture [facility] Bacteria identified in Blood by Culture Blood Culture [facility] Bacteria identified in Sputum by Respiratory culture [facility] BUN/Creatinine ratio [facility] BUN/Creatinine ratio [facility] Calcium [Mass/volume ] in Serum or Plasma [facility] Calcium [Mass/volume ] in Serum or Plasma [facility] Carbon dioxide, tota l [Moles/volume] in Central venous blood [facility] Carbon dioxide, tota l [Moles/volume] in Serum or Plasma [facility] Chloride [Moles/volu me] in Serum or Plasma [facility] Clostridioides diffi cile DNA [Presence] in Unspecified specimen by KANDY with probe detection [facility] Creatinine [Mass/vol ume] in Serum or Plasma [facility] Creatinine [Moles/volume] in Serum or Plasma [facility] End: 09-14-2025 CT Abdomen and Pelvis W contrast IV CT ABD/PEL W IVCON Radiology Routine Alcoholic hepatitis without ascites Acute pancreatitis, unspecified complication status, unspecified pancreatitis type Upper abdominal pain Nausea Elevated lipase Generalized abdominal tenderness without rebound tenderness 1 Occurrences starting 08/15/2024 until 09/14/2025 [facility] Work Phone: Comment on above: 1 Occurrences starting 08/15/2024 until 09/14/2025 CT Abdomen and Pelvi s W contrast IV CT ABD/PEL W IVCON Radiology Routine Alcoholic hepatitis without ascites Acute pancreatitis, unspecified complication status, unspecified pancreatitis type Upper abdominal pain Nausea Elevated lipase Generalized abdominal tenderness without rebound tenderness 08/23/2024 9:53 AM EST [facility] Work Phone: CT Chest [facility] CT Chest [facility] End: 06-03-2025 DBT Breast - bilateral screening SIMI SCREENING W CYNTHIA Radiology Routine Encounter for screening mammogram for breast cancer 1 Occurrences starting 05/04/2024 until 06/03/2025 [facility] Work Phone: Comment on above: 1 Occurrences starting 05/04/2024 until 06/03/2025 End: 05-11-2026 DBT Breast - bilateral screening SIMI SCREENING W CYNTHIA Radiology Routine Encounter for screening mammogram for breast cancer 1 Occurrences starting 04/11/2025 until 05/11/2026 [facility] Work Phone: Comment on above: 1 Occurrences starting 04/11/2025 until 05/11/2026 End: 11-02-2025 EGD - THERAPEUTIC, EUS, OR TUBE INTERVENTIONS EGD - THERAPEUTIC, EUS, OR TUBE INTERVENTIONS Endoscopy Routine Chronic recurrent pancreatitis (HCC) Alcohol-induced chronic pancreatitis (HCC) Chronic RUQ pain 1 Occurrences starting 11/02/2024 until 11/02/2025 [facility] Work Phone: Comment on above: 1 Occurrences starting 11/02/2024 until 11/02/2025 Elastase.pancreatic [Presence] in Stool [facility] End: 11-27-2023 EMG(NEURO/NI) EMG(NEURO/NI) EMG Routine Numbness and tingling of both lower extremities Neuropathy Numbness and tingling of both feet 1 Occurrences starting 11/26/2022 until 11/27/2023 [facility] Work Phone: Comment on above: 1 Occurrences starting 11/26/2022 until 11/27/2023 End: 12-01-2025 ERCP ERCP Endoscopy Routine Other chronic pancreatitis (HCC) 1 Occurrences starting 12/01/2024 until 12/01/2025 [facility] Work Phone: Comment on above: 1 Occurrences starting 12/01/2024 until 12/01/2025 End: 04-04-2026 ERCP ERCP Endoscopy Routine Chronic recurrent pancreatitis (HCC) 1 Occurrences starting 04/04/2025 until 04/04/2026 [facility] Work Phone: Comment on above: 1 Occurrences starting 04/04/2025 until 04/04/2026 Erythrocyte mean corpuscular volume determination [facility] Folate [Moles/volume ] in Serum or Plasma [facility] Giardia lamblia Ag [Presence] in Stool by Immunoassay [facility] Giardia lamblia anti gen assay [facility] Glucose [Mass/volume ] in Serum or Plasma [facility] Glucose [Mass/volume ] in Serum or Plasma [facility] Hematocrit [Volume Fraction] of Blood [facility] Hemoglobin [Mass/vol ume] in Blood [facility] Legionella pneumophi la Ag [Presence] in Urine [facility] Leukocytes [#/volume ] in Blood [facility] End: 07-02-2024 SIMI SCREENING SIMI SCREENING Radiology Routine Encounter for screening mammogram for breast cancer 1 Occurrences starting 06/03/2023 until 07/02/2024 [facility] Work Phone: Comment on above: 1 Occurrences starting 06/03/2023 until 07/02/2024 Mean corpuscular hemoglobin concentration determination [facility] Mean corpuscular hemoglobin determination [facility] Measurement of renal function [facility] Measurement of renal function [facility] Microorganism identi fied in Unspecified specimen by Culture [facility] Microscopic observat ion [Identifier] in Unspecified specimen by Gram stain [facility] Neutrophil count [facility] Neutrophil percent differential count [facility] Nucleic acid assay [facility] Ova OR parasites identification [facility] Ova OR parasites identification [facility] Patient Education [facility] Work Phone: Patient referral [facility] Work Phone: Platelets [#/volume] in Blood [facility] Potassium [Moles/vol ume] in Serum or Plasma [facility] Potassium measurement [facility] Protein measurement [facility] End: 12-25-2023 Radex spine lumbosacral 2/3 views XR LUMBAR GENERAL 3V AP/LAT/L5-S1 Radiology Routine Numbness and tingling of both lower extremities 1 Occurrences starting 11/25/2022 until 12/25/2023 [facility] Work Phone: Comment on above: 1 Occurrences starting 11/25/2022 until 12/25/2023 Radex spine lumbosac ral 2/3 views XR LUMBAR GENERAL 3V AP/LAT/L5-S1 Radiology Routine Numbness and tingling of both lower extremities 11/25/2022 11:18 AM EST [facility] Work Phone: Red blood cell count [facility] Red cell distributio n width determination [facility] End: 07-25-2023 Screening mammography bi 2-view breast inc cad SIMI SCREENING Radiology Routine Encounter for screening mammogram for breast cancer 1 Occurrences starting 06/25/2022 until 07/25/2023 [facility] Work Phone: Comment on above: 1 Occurrences starting 06/25/2022 until 07/25/2023 Serum chloride measurement [facility] Sodium [Moles/volume ] in Serum or Plasma [facility] Sodium measurement [facility] Streptococcus pneumo niae antigen assay [facility] Triacylglycerol lipa se measurement [facility] UA DIP, URINE (POC) UA DIP, URIN E (POC) Lab Routine Urinary incontinence, unspecified type Urinary frequency Ordered: 08/10/2024 [facility] Comment on above: Ordered: 08/10/2024 Urea nitrogen [Mass/volume] in Serum or Plasma [facility] Urea nitrogen [Mass/volume] in Serum or Plasma [facility] Urine culture [facility] End: 09-09-2025 US Abdomen RUQ US ABD RIGHT UPPER QUADRANT Radiology Routine Upper abdominal pain Nausea 1 Occurrences starting 08/10/2024 until 09/09/2025 [facility] Comment on above: 1 Occurrences starting 08/10/2024 until 09/09/2025 End: 05-17-2023 Us abdominal real time w/image limited US ABD RT UPPER QUADRANT Radiology Routine Alcohol-induced chronic pancreatitis (HCC) Alcoholic hepatitis without ascites 1 Occurrences starting 04/17/2022 until 05/17/2023 [facility] Work Phone: Comment on above: 1 Occurrences starting 04/17/2022 until 05/17/2023 Us abdominal real ti me w/image limited US ABD RT UPPER QUADRANT Radiology Routine Alcohol-induced chronic pancreatitis (HCC) Alcoholic hepatitis without ascites 05/02/2022 9:37 AM EDT [facility] Work Phone: End: 04-25-2026 US Carotid arteries - bilateral US CAROTID ARTERIES [facility] Vascular Lab Routine Stenosis of left carotid artery 1 Occurrences starting 04/25/2025 until 04/25/2026 [facility] Comment on above: 1 Occurrences starting 04/25/2025 until 04/25/2026 End: 04-25-2026 US Upper extremity artery US ARM ARTERIAL [facility] Vascular Lab Routine Subclavian arterial stenosis 1 Occurrences starting 04/25/2025 until 04/25/2026 [facility] Work Phone: Comment on above: 1 Occurrences starting 04/25/2025 until 04/25/2026 XR Abdomen Single view [facility] End: 02-23-2025 XR Chest PA and Lateral XR CHEST 2V FRONTAL/LAT Radiology Routine Pneumonia due to infectious organism, unspecified laterality, unspecified part of lung Acute right ankle pain 1 Occurrences starting 01/25/2024 until 02/23/2025 [facility] Work Phone: Comment on above: 1 Occurrences starting 01/25/2024 until 02/23/2025 XR Chest PA and Lateral XR CHEST 2V FRONTAL/LAT Radiology Routine Pneumonia due to infectious organism, unspecified laterality, unspecified part of lung Acute right ankle pain 01/25/2024 2:13 PM EDT [facility] End: 09-09-2025 XR Chest PA and Lateral XR CHEST 2V FRONTAL/LAT Radiology Routine Shortness of breath Chronic obstructive pulmonary disease with acute exacerbation (HCC) Tobacco use disorder Pulmonary emphysema, unspecified emphysema type (HCC) 1 Occurrences starting 08/10/2024 until 09/09/2025 [facility] Comment on above: 1 Occurrences starting 08/10/2024 until 09/09/2025 XR Chest PA and Lateral XR CHEST 2V FRONTAL/LAT Radiology Routine Shortness of breath Chronic obstructive pulmonary disease with acute exacerbation (HCC) Tobacco use disorder Pulmonary emphysema, unspecified emphysema type (HCC) 08/10/2024 5:47 PM EST [facility] End: 01-18-2026 XR Chest PA and Lateral XR CHEST 2V FRONTAL/LAT Radiology Routine Chronic recurrent pancreatitis (HCC) Chronic obstructive pulmonary disease, unspecified COPD type (HCC) Hospital discharge follow-up 1 Occurrences starting 12/19/2024 until 01/18/2026 [facility] Work Phone: Comment on above: 1 Occurrences starting 12/19/2024 until 01/18/2026 XR Chest PA and Lateral XR CHEST 2V FRONTAL/LAT Radiology Routine Chronic recurrent pancreatitis (HCC) Chronic obstructive pulmonary disease, unspecified COPD type (HCC) Hospital discharge follow-up 12/19/2024 4:01 PM EDT [facility] Immunizations Immunization Date Immunization Notes Care Provider [facility] 08-05-2024 influenza, seasonal, injectable Misbah Elkins MD Work Phone: [facility] 08-05-2024 influenza virus vacc ine, unspecified formulation Herman Nevarez RN [facility] 07-18-2022 influenza, injectabl e, quadrivalent, contains preservative Soila Older SALES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 Phone: [facility] 07-18-2022 influenza, injectabl e, quadrivalent, preservative free SERVICE COUNTER CASHIER-C SOILA OLDER Work Phone: [facility] 07-18-2022 influenza, seasonal, injectable SERVICE COUNTER CASHIER-C SOILA OLDER Work Phone: [facility] 07-18-2022 influenza virus vacc ine, unspecified formulation Soila Older SALES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 Phone: [facility] 06-18-2021 Covid (Pfizer) SERVICE COUNTER CASHIER-C SOILA OLDE R Work Phone: [facility] 08-12-2020 tetanus toxoid, redu enid diphtheria toxoid, and acellular pertussis vaccine, adsorbed Víctor Mcpherson SALES MARKETING.TIFFANIE COSTA Work Phone: [facility] Work Phone: 05-24-2020 influenza, injectabl e, quadrivalent, contains preservative Víctor Mcpherson SALES MARKETING.TIFFANIE COSTA Work Phone: [facility] 07-26-2019 influenza, injectabl e, quadrivalent, contains preservative Víctor Mcpherson SALES MARKETING.TIFFANIE COSTA Work Phone: [facility] 08-31-2018 pneumococcal polysaccharide vaccine, 23 valent Víctor Mcpherson SALES MARKETING.TIFFANIE COSTA Work Phone: [facility] 08-17-2018 influenza, seasonal, injectable Víctor Mcpherson SALES MARKETING.TIFFANIE COSTA Work Phone: [facility] 08-11-2018 Influenza, injectabl e, Madin Mitzi Canine Kidney, preservative free, quadrivalent Víctor Mcpherson SALES MARKETING.[facility] Work Phone: [facility] Work Phone: 07-13-2018 influenza, injectabl e, quadrivalent, preservative free SERVICE COUNTER CASHIER-C SOILA EASTON Work Phone: [facility] 07-13-2018 influenza, seasonal, injectable SERVICE COUNTER CASHIER-C Theron Teague SERVICE COUNTER CASHIER Work Phone: [facility] 07-13-2018 influenza, seasonal, injectable, preservative free Víctor Mcpherson SALES MARKETING.[facility] Work Phone: [facility] Work Phone: 08-27-2017 pneumococcal conjuga te vaccine, 13 valent Víctor Mcpherson SALES MARKETING.TIFFANIE COSTA Work Phone: [facility] 07-13-2017 influenza, injectabl e, quadrivalent, contains preservative Víctor Blarose SALES MARKETING.TIFFANIE COSTA Work Phone: [facility] 06-24-2016 influenza, injectabl e, quadrivalent, contains preservative Víctor Blaz SALES MARKETING.[facility] Work Phone: [facility] 10-28-2013 Influenza virus vaccine SERVICE COUNTER CASHIER-C Theron Teague SERVICE COUNTER CASHIER Work Phone: [facility] 10-28-2013 influenza, seasonal, injectable, preservative free Víctor Mcpherson SALES MARKETING.[facility] Work Phone: [facility] Work Phone: 10-28-2013 Dr. Misbah valdes MD Work Phone: [facility] 07-17-2012 influenza virus vacc ine, unspecified formulation Víctor Blaz SALES MARKETING.[facility] Work Phone: [facility] 07-19-2011 influenza virus vacc ine, unspecified formulation Víctor Blaz SALES MARKETING.[facility] Work Phone: [facility] Work Phone: 07-30-2010 influenza virus vacc ine, unspecified formulation Víctor Blaz SALES MARKETING.[facility] Work Phone: [facility] 10-05-2009 pneumococcal polysaccharide vaccine, 23 valent Víctor Blaz SALES MARKETING.[facility] Work Phone: [facility] Work Phone: 10-05-2009 Pneumococcal Vaccine SERVICE COUNTER CASHIER-C Onesimo Teague SERVICE COUNTER CASHIER Work Phone: [facility] Work Phone: 10-05-2009 pneumococcal vaccine , unspecified formulation SERVICE COUNTER CASHIER-Nichole EASTON Work Phone: [facility] 08-14-2009 novel influenza-H1N1 -09, all formulations Víctor Mcpherson SALES MARKETING.[facility] Work Phone: [facility] 07-06-2009 influenza virus vacc ine, unspecified formulation Víctor Blaz SALES MARKETING.[facility] Work Phone: [facility] Work Phone: 03-28-2007 pneumococcal polysaccharide vaccine, 23 valent Víctor Blaz SALES MARKETING.[facility] Work Phone: [facility] Payers Date Payer Category Payer Self-pay 2015 Unknown [id number] 2015 Unknown [id number] 2006 Medicaid [employer] [id number] 2006-Present [phone] [address] [place] [address] Medicaid [id number]. [id number] 2006 Medicaid [id number]. 1.13.159.2.7.3. [id number] 1963 Unknown [id number] 2.16840.1.074054.3.579.2.73 1963 Unknown [id number] 2.16.840.1.530586.3.579.2.732 1963 Unknown [id number] 2.16.840.1.837473.3.579.2. 1963 Unknown [id number] 2.16840.1.762271.3.579.2.732 1963 Unknown [id number] 2.16840.1.486189.3.579.2.73 1963 Unknown [id number] 2.16.840.1.776741.3.579.2.732 1963 Unknown [id number] 2.16.840.1.116129.3.579.2.73 1963 Unknown [id number] 2.16.840.1.709804.3.579.2.732 1963 Unknown [id number] 2.16.840.1.792297.3.579.2.73 1963 Unknown [id number] 2.16.840.1.503434.3.579.2.356 1963 Unknown [id number] 2..840.1.192177.3.579.2.356 1963 Unknown [id number] 2.16.840.1.075866.3.579.2.356 1963 Unknown [id number] 2.840.1.985047.3.579.2.356 1963 Unknown [id number] 2.840.1.789508.3.579.2.356 1963 Unknown [id number] 2.840.1.222818.3.579.2.356 1963 Unknown [id number] 2.840.1.557016.3.579.2.356 Unknown Unknown [id number] 2.840.1.147117.3.579.2.462 Unknown [id number] 2.840.1.635969.3.579.2.462 Unknown [id number] 2.840.1.660910.3.579.2.462 Unknown [id number] 2.840.1.538656.3.579.2.462 Unknown [id number] 2.840.1.187778.3.579.2.462 Unknown [id number] 2.840.1.834916.3.579.2.462 Unknown [id number] 2.840.1.537178.3.579.2.462 Unknown [id number] 2.840.1.943050.3.579.2.462 Unknown [id number] 2.840.1.399382.3.579.2.462 Unknown [id number] 2.16840.1.856330.3.579.2.462 Unknown [id number] 2.840.1.555561.3.579.2.462 Unknown [id number] 2.16.840.1.727630.3.579.2.462 Unknown [id number] 2.16.840.1.754573.3.579.2.462 Unknown [id number] 2.16.840.1.682363.3.579.2.462 Unknown [id number] 2.16840.1.095785.3.579.2.462 Unknown [id number] 2.16840.1.837146.3.579.2.462 Unknown [id number] 2.16840.1.427457.3.579.2.462 Unknown [id number] 2.840.1.122514.3.579.2.462 Unknown [id number] 2.840.1.391606.3.579.2.462 Unknown [id number] 2.840.1.847564.3.579.2.462 Unknown [id number] 2.840.1.393494.3.579.2.462 Unknown [id number] 2.840.1.476902.3.579.2.462 Unknown [id number] 2.840.1.099072.3.579.2.462 Unknown [id number] 2.840.1.561130.3.579.2.462 Unknown [id number] 2.840.1.877335.3.579.2.462 Unknown [id number] 2.840.1.242338.3.579.2.462 Unknown [id number] 2.16840.1.031282.3.579.2.462 Unknown [id number] 2.16840.1.653690.3.579.2.462 Unknown [id number] 2.16840.1.222461.3.579.2.462 Unknown [id number] 2.16.840.1.510986.3.579.2.462 Unknown [id number] 2.16.840.1.968902.3.579.2.462 Unknown [id number] 2.16.840.1.960157.3.579.2.462 Unknown [id number] 2.16.840.1.647752.3.579.2.462 Unknown [id number] 2.16.840.1.862348.3.579.2.462 Unknown [id number] 2.16.840.1.805869.3.579.2.462 Unknown [id number] 2.16.840.1.241809.3.579.2.462 Unknown [id number] 2.16.840.1.674164.3.579.2.462 Unknown [id number] 2.16.840.1.218263.3.579.2.462 Unknown [id number] 2.16.840.1.531236.3.579.2.462 Unknown [id number] 2.16.840.1.934006.3.579.2.462 Unknown [id number] 2.16.840.1.496452.3.579.2.462 Unknown [id number] 2.16.840.1.593210.3.579.2.462 Unknown [id number] 2.16.840.1.180854.3.579.2.462 Unknown [id number] 2.16.840.1.401989.3.579.2.462 Unknown [id number] 2.16.840.1.849066.3.579.2.462 Unknown [id number] 2.16.840.1.684487.3.579.2.462 Unknown [id number] 2.16.840.1.769432.3.579.2.462 Unknown [id number] 2.16.840.1.599705.3.579.2.462 Unknown [id number] 2.16.840.1.173862.3.579.2.462 Unknown [id number] 2.16.840.1.170404.3.579.2.462 Unknown [id number] 2.16.840.1.849426.3.579.2.462 Unknown [id number] 2.16.840.1.438565.3.579.2.462 Social History Date Type Detail Facility Start: 10-19-1992 End: 12-01-2024 Tobacco smoking status WIIS Smokes tobacco daily [facility] Start: 10-19-1992 End: 10-19-2022 History of tobacco use Cigarette Smoker [facility] Start: 07-05-2019 End: 03-30-2023 Cigarettes smoked current (pack per day) - Reported 0.5 [facility] Start: 07-05-2019 End: 12-01-2024 Tobacco use and exposure Smokeless tobacco non-user [facility] Start: 07-18-2021 End: 05-31-2025 Alcohol intake Ex-drinker (finding) [facility] Start: 03-26-2021 History SDOH Alcohol Comment Alcoholic - November 2020 - last drink [facility] Start: 1965 Sex Assigned At Not on file C [facility] Start: 03-03-2022 End: 01-19-2024 Tobacco smoking status WIIS Unknown if ever smoked [facility] Start: 01-22-2021 Heavy [facility] Start: 01-22-2021 Marijuana [facility] Start: 02-01-2019 Alone [facility] Start: 01-22-2021 Cigarettes [facility] Start: 1965 Sex Assigned At Female W [facility] Start: 03-11-2022 End: 05-27-2022 Exposure to SARS-CoV-2 (event) Not sure [facility] Start: 10-21-2022 Tobacco use and exposure User of smokeless tobacco [facility] Start: 11-11-2022 End: 04-16-2025 Tobacco smoking status NHIS Ex-smoker [facility] Work Phone: Start: 10-19-1992 End: 10-19-2022 History of tobacco use Current smoker [facility] Work Phone: Start: 03-30-2023 End: 04-15-2023 Tobacco use panel [facility] Start: 08-29-2012 Adult Depression Screening Assessment 4 [facility] Start: 12-04-2024 End: 07-10-2025 Tobacco smoking status NHIS Current Heavy tobacco smoker [facility] Start: 12-04-2024 End: 01-01-2025 Sex Female (finding) [facility] Start: 12-24-2024 End: 02-26-2025 Tobacco smoking status NHIS Current some day smoker [facility] Has the [employer], [facility], oil, or water company threatened to shut off services in your home in past 12Mo No [facility] (I/We) worried tara er (my/our) food would run out before (I/we) got money to buy more. Never true [facility] Start: 05-10-2025 Tobacco smoking stat us WIIS Current Light tobacco smoker [facility] Medical Equipment Procedure Code Equipment Code Equipment Origin al Text Equipment Identifier Dates Total cholecystectomy with exploration of common bile duct [id number] FDA Start: 06-14-2021 ERCP (endoscopic retrograde cholangiopancreatograp hy) ([id number]) [id number] FDA Start: 07-06-2025 Stent Zimmon 7fr Duodenal Pigtail Curve Purple Polyethylene 11cm Pancreatic - [id number] Start: 03-10-2025 Goals Date Patient Goal Desired Activity /State Functional Status Date Assessment Result Facility 04-19-2025 Functional status Ambulates;Up ad denise [facility] Work Phone: 04-19-2025 Functional status None [facility] Work Phone: 03-23-2025 Are you deaf, or do you have serious difficulty hearing No 03/23/2025 5:10 PM EDT Kerri Aaron RN No [facility] 03-23-2025 Are you blind, or do you have serious difficulty seeing, even when wearing glasses No 03/23/2025 5:10 PM Kerri Hardin RN No [facility] 03-23-2025 Do you have serious difficulty walking or climbing stairs No 03/23/2025 5:10 PM Kerri Hardin RN No [facility] 03-23-2025 Do you have difficul ty dressing or bathing No 03/23/2025 5:10 PM Kerri Hardin RN No [facility] 03-23-2025 Because of a physica l, mental, or emotional condition, do you have difficulty doing errands alone such as visiting a physician's office or shopping No 03/23/2025 5:10 PM Kerri Hardin RN No [facility] 03-15-2025 Functional status Bedrest [facility] Work Phone: 12-12-2024 Functional status Ambulates;Bath room Privilege [facility] Work Phone: 12-08-2024 Functional status Bedrest [facility] Work Phone: 01-05-2024 Functional status Ambulates [facility] Work Phone: 11-07-2022 Functional status Ambulates [facility] Work Phone: 02-02-2015 Are you deaf, or do you have serious difficulty hearing No 02/02/2015 9:44 AM Alondra Mackenzie RN No [facility] 02-02-2015 Are you blind, or do you have serious difficulty seeing, even when wearing glasses No 02/02/2015 9:44 AM Alondra Mackenzie RN No [facility] 02-02-2015 Do you have serious difficulty walking or climbing stairs No 02/02/2015 9:44 AM Alondra Mackenzie RN No [facility] 02-02-2015 Do you have difficul ty dressing or bathing No 02/02/2015 9:44 AM Alondra Mackenzie RN No [facility] 02-02-2015 Because of a physica l, mental, or emotional condition, do you have difficulty doing errands alone such as visiting a physician's office or shopping No 02/02/2015 9:44 AM EDT Alondra Otto RN No [facility] Functional observable [facility] [place] Mental Status Date Assessment Result Facility 07-06-2025 Cognitive function Light Pain [facility] Work Phone: 07-06-2025 Cognitive function Person [facility] Work Phone: 04-19-2025 Cognitive function Voice/Name [facility] Work Phone: 03-23-2025 Because of a physica l, mental, or emotional condition, do you have serious difficulty concentrating, remembering, or making decisions No 03/23/2025 5:10 PM EDT Kerri Aaron RN [facility] 03-15-2025 Cognitive function Unable to Comprehend W [facility] Work Phone: 03-15-2025 Cognitive function Voice/Name [facility] Work Phone: 12-12-2024 Cognitive function Voice/Name [facility] Work Phone: 12-11-2024 Cognitive function Appropriate;Cooperativ e [facility] Work Phone: 12-08-2024 Cognitive function Voice/Name [facility] Work Phone: 01-19-2024 Cognitive function Level Of Cons ciousness Awake;Alert;Appropriate [facility] Work Phone: 01-05-2024 Cognitive function Voice/Name [facility] Work Phone: 06-02-2023 Cognitive function Level Of Cons ciousness Awake;Alert;Appropriate;Fol lows Commands [facility] Work Phone: 11-07-2022 Cognitive function Voice/Name [facility] Work Phone: 10-24-2022 Cognitive functi ons :06 [facility] 02-02-2015 Because of a physica l, mental, or emotional condition, do you have serious difficulty concentrating, remembering, or making decisions No 02/02/2015 9:44 AM CARINAT Alondra Otto RN No [facility] Clinical Notes 01-10-2021 to 07-06-2025 Note Date & Type Note Facility 07-06-2025 Procedure note [facility] 07-06-2025 Procedure note [facility] 07-06-2025 Radiology Diagnostic study note [facility] 07-06-2025 Radiology Diagnostic study note [facility] 07-06-2025 History and physi anay note Note Date/Time July 06, 2025 10:38am [facility] Medical Records Department [address] [place] [address] History & Physical Exam 07/06/25 1036 MR#: [id number] Acct: [id number] Name: GRACIE BANUELOS Rep #:[id number] : 1965 60 From: Marshal Friend PCP: Dr. Misbah Elkins MD Status:REG S OK Location: [place] [address] HPI - General General Date of Admission: 07/06/25 Date of Service: 07/06/25 Chief Complaint: Chronic pancreatitis HPI Narrative GRACIE BANUELOS, is a 60 F who presents [Chief Complaint: chornic pancreatits [facility] admission 12.04.24-12.12.24 due to acute [...] the duodenum. - No specimens collected. OV 3; Pt has had no further issues with swallowing. She tells me she choked on eggs in the hospital. Prior to this she has had a few other episodes like this. SHe has not smoked since being home. She is in a lot of pain due her chronic pancreatitis. She has an appointment with pain management in January at the [facility] ERCP at [facility] 03.10.25 major papilla appeared normal. A [...] ERCP in 4 months to remove stent. [facility] admission -03.16.25 With epigastric pain. Hx of chronic pancreatitis from alcohol abuse. Pt seen by GI specialist at [facility] during recent admissions Underwent endoscopy with pancreatitis stent placement. Now presenting with worsening epigastric pain. Adept to transfer to but beds unavailable. Pt intubated 03.15.25 due to respiratory failure [facility] admission 04.16.[address] showing acute on chronic pancreatitis. Admitted for pain Control OV 04.26.25 patient here today for hospital follow-up after 2 instances of acute on chronic pancreatitis. Patient first presented to [facility] ED on March 13, 2025 2 days after ERCP with pancreatic stent placement at the [facility]. Patient presented with epigastric pain she [...] Z98.890 - Other specified postprocedural states ] [facility] Medical History Wears glasses Wears dentures Dietary [...] pain 5 Unknown History OXYGEN - Supplemental ([facility] 5 l intranasal CONT 5 Unknown History INFORMATIONAL USE ONLY) Allergy/AdvReac Type Severity Reaction Status Date / Time clindamycin Allergy Intermediate Hives Verified 07/06/25 09:43 Penicillins Allergy Hives Verified 07/06/25 09:43 sulfamethoxazole (From Allergy Other Verified 07/06/25 09:43 Bactrim) trimethoprim (From Bactrim) Allergy Other Verified 07/06/25 09:43 hydrocodone (From [place]) AdvReac Itching Verified 07/06/25 09:43 Family History [...] months patient has had 2 admissions to [facility] for acute on chronic pancreatitis. Patient underwent ERCP with pancreatic stent placement and stone removal in February 2025 at the [facility]. Following this procedure she presented to [facility] EDwith an elevated lipase and was diagnosed with post ERCP acute on chronic pancreatitis. She was admitted for management and subsequently developed respiratory failure and was intubated in the ICU. Patient responded to treatment and is eventually extubated and discharged home. She again presented to [facility] ED April 16 with epigastric pain and elevated lipase. She was admitted for management of acute on chronic pancreatitis once again. Per ERCP report from Dr. Portillo at the [facility], she will need to undergo repeat ERCP in 4 months for removal of pancreatic stent. She would prefer to keep her care in [place] as traveling to [place] is difficult. She was scheduled for repeat [...] Misbah Elkins MD; Marshal Segura DO~ Signed [facility] Work Phone: 1(497) 719-122410-09-2025 Consult note Author Terence Prater [facility] Note Date/Time July 06, 2025 9: 37am [facility] Medical Records Department [address] [place] [address] Pre-Anesthesia Evaluation 07/06/25 0935 MR#: [id number] Acct: [id number] Name: GRACIE BANUELOS Rep #:[id number] : 1965 60 From: Terence Prater MD PCP: Dr. Misbah Elkins MD Status:REG S DC Y Race: C Location: [place] [address] ASA Classification* ASA Classification ASA Classification: 3 [...] 21:24 Hgb, (12.0-15.0) 11.4 g/dL L 05/10/25, 21:24 Hct, (37-47) 37.0 % 05/10/25, 21:24 Plt Count, (150-450) 305 K/mm3 05/10/25, 21:24 [...] ERCP rem Anesthesia History Anesthesia History - outcomes analyst: Anesthesia History - outcomes analyst Hx Hospitalization Yes: 3X, 5-25 ON VENTILATOR [...] take am of surgery PONV PONV - outcomes analyst: PONV - outcomes analyst Female Yes 07/04/25 09:29 HX of Motion [...] 04/17/25 14:06 Respiratory Assessment Respiratory Assessment - outcomes analyst: Respiratory Tract Infection Hx - outcomes analyst Hx Respiratory Tract Infection No 07/04/25 09:29 STOP Sleep Apnea STOP Sleep Apnea - outcomes analyst: STOP Sleep Apnea - outcomes analyst Hx Hypertension Yes 07/04/25 09:29 Hx Sleep [...] Tobacco Use History Tobacco Use History - outcomes analyst: Tobacco Use History - outcomes analyst Tobacco Use Cigarettes 01/22/21 20:43 Smoking Status Light Smoker (<10/day) 07/04/25 09:29 Hx Tobacco Use Yes 07/04/25 09:29 Years Smoking 50 07/04/25 09:29 Packs Smoked per Day 1 07/04/25 09:29 Smoking Cessation Date was within the last 15 years Hx Smoking Cessation Date Hx Smoking Cessation No 07/04/25 09:29 Counseling Hematologic Medial History Hematologic Hx - outcomes analyst: 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 Hx of Blood Transfusion No 07/04/25 09:29 [...] confused, unrespo /Reproduction History /Reproductive History - outcomes analyst: /Reproductive Hx- outcomes analyst Hx Now No 07/04/25 09:29 Gestational Age (in weeks): EDC: Hx Hx Para Hx Section SAB No 07/04/25 09:29 Active Medications Active Medications: Current Medications Generic Name Dose Route Start Last Admin Trade Name Freq PRN Reason Stop Dose Admin Lactated Ringer's 1,000 mls @ 15 mls/hr 07/06/25 09:30 [facility] History Wears glasses Wears dentures Dietary [...] pain 5 Unknown History OXYGEN - Supplemental ([facility] 5 l intranasal CONT 5 Unknown History INFORMATIONAL USE ONLY) Allergy/AdvReac Type Severity Reaction Status Date / Time clindamycin Allergy Intermediate Hives Verified 07/04/25 09:19 Penicillins Allergy Hives Verified 07/04/25 09:19 sulfamethoxazole (From Allergy Other Verified 07/04/25 09:19 Bactrim) trimethoprim (From Bactrim) Allergy Other Verified 07/04/25 09:19 hydrocodone (From [place]) AdvReac Itching Verified 07/04/25 09:19 Family History [...] MD > Date _ [facility]: Date CC: ~ Signed [facility] Work Phone: 1(229) 377-990610-09-2025 [facility]09-17-2025 Telephone encounter Note* Telephone Encounter - Soila Easton APRN.CNP - 06/14/2025 10:26 AM EDT [facility] All prescriptions have been APPROPRIATELY filled. No suspiciousactivity was identified. 06/14/2025 by Soila Easton APRN.CNP [facility]09-17-2025 Miscellaneous Notes* Telephone Encounter - Soila Easton APRN.CNP - 06/14/2025 10:26 AM EDT PDMP website checked and validated. All prescriptions have been APPROPRIATELY filled. No suspiciousactivity was identified. 06/14/2025 by Soila Easton APRN.CNP * Telephone Encounter - Eva Martines RN [...] states she will see pain management at [facility] on 06/19/2025 Please call patient to discuss the need for this Tramadol Patient has been identified by name and birthdate. Duration of symptoms: ongoing Person calling: self Call patient at: on cell [phone] (home) [phone] (cell) Was an appointment scheduled: Urmila Estes documented [facility] Telephone encounter Note * Telephone Encounter - Eva Martines RN - 06/13/2025 10:37 AM EDT Patient calling about this request. Patient also asking for a call back if medication is approved. Eva Martines RN [facility] Telephone encounter Note* Telephone Encounter - [...] as needed for nausea/vomiting. Mihaela Cheng RN [facility]09-15-2025 Telephone encounter Note* Telephone Encounter - Jordana Zayas - 06/12/2025 12:38 PM EDT Gracie is calling Soila Easton APRN.CNP today to request a medication for patient pancreas? Patient asking for Tramadol? This medication is not on current medication list. Patient states she will see pain management at [facility] on 06/19/2025 Please call patient to discuss the need for this Tramadol Patient has been identified by name and birthdate. Duration of symptoms: ongoing Person calling: self Call patient at: on cell [phone] (home) [phone] (cell) Was an appointment scheduled: Urmila Estes [facility]09-03-2025 Instructions* Patient Instructions* Soila Easton APRN.CNP - 05/31/2025 11:04 AM EDT - Call Dr. Eden chase pain management office to let them know [...] milk. - Follow up in June with Friend (RICARDO Tavarez) for removal of your pancreatic stent. documented in this encounterMiddletown [facility]09-03-2025 NoteHNO ID: [id number] Author: SOILA EASTON APRN.CNP Service: ? Author Type: Nurse Practitioner Type: Progress Notes Filed: 05/31/2025 13:42 Note Text: CC: Patient presents with: Recheck: 1 month follow up HPI Gracie Banuelos is a 60 year old female who presents today for follow up on chronic pancreatitis, COPD, and pain., Recording using ambient [employer] [place] software for draft documentation of the visit was discussed with the patient/authorized service representative; all questions welcomed and answered. Patient/authorized service representative agreed to proceed Chronic Pancreatitis: - Gracie Banuelos was hospitalized in March for pancreatitis; stent placed, still in situ. - Followed by Dr. Segura at [facility]; stent removal planned for June. - [...] mouth daily at bedt (more content not included)...[facility]09-03-2025 History of Present illness Narrative* Soila Easton APRN.COMPANY MARKER - 05/31/2025 10:49 AM EDT CC: Patient presents with: Recheck: 1 month follow up HPI Gracie Banuelos is a 60 year old female who presents today for follow up on chronic pancreatitis, COPD, and pain., Recording using RUN software for draft documentation of the visit was discussed with the patient/authorized service representative; all questions welcomed and answered. Patient/authorized service representative agreed to proceed Chronic Pancreatitis: - Gracie Banuelos was hospitalized in March for pancreatitis; stent placed, still in situ. - Followed by Dr. Segura at [facility]; stent removal planned for June. - [...] failure (HCC) COPD (chronic obstructive pulmonary disease) ([facility]) 05/25/2012 DDD (degenerative disc disease), cervical 09/03/2018 [...] to infectious organism 2017 Severe protein-calorie malnutrition ([facility]) 01/07/2019 Stage 3 severe COPD by GOLD classification ([facility]) 2018 Tobacco use greater than 30 years [...] agreeable to treatment plan. Soila Easton APRN.CNP [1] Social History Tobacco Use Smoking status: [...] used was Oct 2019 documented in this encounterMiddletown [facility]08-23-[facility]25 Telephone encounter Note * Telephone Encounter [...] going to complete her cholesterol lab first. [facility]-23[facility] Miscellaneous Notes* Telephone Encounter - Mike [...] Regards, Misbah Elkins MD documented in this encounterMiddletown Hospital08-22-2025 Telephone encounter Note * Telephone Encounter - Soila Easton APRN.CNP - 05/19/2025 3:36 PM EDT I have sent tramadol as requested. Thank you Soila Easton APRN.IGOR PDMP website checked and validated. All prescriptions have been APPROPRIATELY filled. No suspiciousactivity was identified. 05/19/2025 by Soila Easton APRN.CNP [facility] Miscellaneous Notes* Telephone Encounter - Soila [...] having pain. Please phone pt with reply. [phone] * Telephone Encounter - Eva Martines RN [...] thinks she is seeing pain mgmt at [facility] on 05/26/25. She will check [...] seeing one? Thank you Soila Easton APRN.CNP * Telephone Encounter - Holly Herrera - [...] Holly Jensen May 17, 2025 10:12 AM documented in this encounterMiddletown Hospital08-22-2025 Telephone encounter Note * Telephone Encounter - Eileen Chavez MA - 05/19/2025 11:04 AM EDT Patient notified, please assist in scheduling. [facility] Telephone encounter Note* Telephone Encounter - Mike Phan RN - 05/19/2025 10:29 AM EDT Pt asking if provider is going to send a pain medication to her pharmacy? States she is having pain. Please phone pt with reply. [phone] [facility]08-22-[facility] Telephone encounter Note* Telephone Encounter - Misbah Elkins MD - 05/19/2025 10:28 AM EDT Please let patient know that we would like her to see vascular as on the left side her artery is stenosed , affecting the vertebral artery flow. Please assist patient in scheduling Regards, Misbah Elkins MD [facility]08-21-2025 Telephone encounter Note* Telephone Encounter - Eva Martines RN - 05/18/2025 4:54 PM EDT Patient calls and states that she see pain management on 05/24/2025. Patient has appointment with Soila on 05/26/2025. Patient states that she is out of pain medications and is needing one. Eva Martines RN [facility]08-21-2025 Telephone encounter Note* Telephone Encounter - Mike Phan RN - 05/18/2025 4:43 PM EDT Pt checking on refill request and given provider's message below with verbalized understanding. Pt reports she thinks she is seeing pain mgmt at [facility] on 05/26/25. She will check and call back to let provider know. Pt reports she is scheduled with Dr. Segura in Jun. Pt thinks she is having surgery in Jun to remove the stent from her pancreas. Pt asking provider to fill one of the requested Rx's. States she doesn't care which one as long as she gets one of them. [facility] Telephone encounter Note* Telephone Encounter - Soila Easton APRN.IGOR - 05/18/2025 2:52 PM EDT We are [...] seeing one? Thank you Soila Easton APRN.IGOR [facility]-20[facility] Telephone encounter Note* Telephone Encounter - [...] Holly Jensen May 17, 2025 10:12 AM [facility] Telephone encounter Note* Telephone Encounter - [...] Phan RN May 16, 2025 10:34 AM [facility]-19[facility] Miscellaneous Notes* Telephone Encounter - Mike [...] 16, 2025 10:34 AM documented in this encounterMiddletown Hospital08-13-2025 Radiology Diagnostic study 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 [facility]08-11-2025 Consult note Author Terence Prater [facility] Note Date/Time July 06, 2025 1: 02pm [facility] Medical Records Department [address] [place] [address] Anesthesia Postop Eval II 07/06/25 1232 MR#: [id number] Acct: [id number] Name: GRACIE BANUELOS Rep #:[id number] : 1965 60 From: Terence Prater MD PCP: Dr. Misbah Elkins MD Status:REG S DC Y Race: C Location: [place] [address] Anesthesia Postop Eval I Sum Postop Eval [...] MD > Date _ Terence Prater MD [facility] Signature: Date CC: ~ Signed [facility] Work Phone: 1(875) 464-246007-31-2025 Radiology Diagnostic study [facility]07-30-2025 Telephone encounter Note* Telephone Encounter - Caroline Miller RN - 04/26/2025 8:23 AM EDT Called pt and she said she already picked up the Tramadol. [facility]30[facility] Miscellaneous Notes* Telephone Encounter - Caroline [...] back to the ER. documented in this encounterMiddletown Hospital07-29-2025 NoteHNO ID: [id number] Author: MISBAH ELKINS MD Service: ? Author Type: Physician Type: Progress Notes Filed: 04/25/2025 22:28 Note Text: Reason for Visit Follow up HPI Gracie Banuelos is a 59-year-old female with a history of chronic pancreatitis, COPD, and anxiety, presenting for follow-up after a recent hospitalization for acute pancreatitis. Gracie was admitted to the hospital on 04/16/2025 and discharged on 04/19/2025, at [facility], following an episode of acute [...] placement and removal of multiple stones at [facility] in [place] on 03/10/2025. During her recent hospitalization, a [...] chronic pancreatitis and pancreatic stent placement at [facility] on 03/10/2025. She reports ongoing pain [...] pain management. She is also taking an ggnn-eby-entwrbm medication called Ease to manage constipation associated with opioid use. Gracie expresses concern about her blood pressure readings, which she reports are high in one arm and low in the other. She was told by her doctors that she might have a blood clot and is requesting a referral to a television specialist for further evaluation. She also reports dryness [...] mirtazapine (REMERON) 45 mg (more content not included)...[facility]07-29-2025 History of Present illness Narrative* Misbah Elkins MD - 04/25/2025 10:01 PM EDT Reason for Visit Follow up HPI Gracie Banuelos is a 59-year-old female with a history of chronic pancreatitis, COPD, and anxiety, presenting for follow-up after a recent hospitalization for acute pancreatitis. Gracie was admitted to the hospital on 04/16/2025 and discharged on 04/19/2025, at [facility], following an episode of acute [...] placement and removal of multiple stones at [facility] in [place] on 03/10/2025. During her recent hospitalization, a [...] chronic pancreatitis and pancreatic stent placement at [facility] on 03/10/2025. She reports ongoing pain [...] forpain management. She is also taking an tken-dmi-jqsgxsu medication called Ease to manage constipation associated with opioid use. Gracie expresses concern about her blood pressure readings, which she reports are high in one arm and low in the other. She was told by her doctors that she might have a blood clot and is requesting a referral to a television specialist for further evaluation. She also reports dryness [...] excuse any unintended typographical errors. Recording using RUN software for draft documentation of the visit was discussed with the patient/authorized service representative; all questions welcomed and answered. Patient/authorized service representative agreed to proceed Misbah Elkins MD documented in this encounterMiddletown Hospital07-29-2025 Telephone encounter Note * Telephone Encounter - Misbah Elkins MD - 04/25/2025 7:03 PM EDT [facility] Regards, Misbah Elkins MD [facility]07-29-2025 Telephone encounter Note* Telephone Encounter - Caroline [...] not want togo back to the ER. [facility]07-26-2025 Telephone encounter Note* Telephone Encounter - Caroline Miller RN - 04/22/2025 9:16 AM EDT LM pt has a script at the pharmacy. [facility]07-26-2025 Miscellaneous Notes* Telephone Encounter - Caroline Miller RN - 04/22/2025 9:16 AM EDT LM pt has a script at the [...] Staff do you see anything or does [facility] Er not have connection to oarrrs? Regards, Misbah Elkins MD * Telephone Encounter - Kiana Christy - 04/20/2025 8:57 AM EDT Patient calling in to let office know she was just discharged from [facility]. She made an appt to see on 04/25, however she states they gave her oxycodone to help with her pain, and she only has 4left. She is wondering if she is able to get another refill. Please review and advise. Kiana Christy April 20, 2025 8:59 AM documented in this encounterMiddletown Hospital07-25-2025 Telephone encounter Note * Telephone Encounter - Juan Borjas MA - 04/21/2025 11:44 AM EDT Unable to reach patient. Left VM to return call to office. Please read below and advise. Juan Borjas MA [facility]07-25-2025 Telephone encounter Note* Telephone Encounter - Misbah Elkins MD - 04/21/2025 11:05 AM EDT I will not be able to refill except for 10 pills. Thank you [facility]07-25-[facility] Telephone encounter Note* Telephone Encounter - Juan Borjas MA - 04/21/2025 8:45 AM EDT Images from the original note were not included. Reconcile dispense list shows a fill of Oxycodone HCL 5 MG qty: 10 tablets on 04/19/25. Juan Borjas MA [facility]07-24-2025 Telephone encounter Note* Telephone Encounter - Misbah Elkins MD - 04/20/2025 4:49 PM EDT [facility] does not show that she got any oxycodoe Staff do you see anything or does [facility] not have connection to oarrrs? Regards, Misbah Elkins MD [facility]07-24-2025 Telephone encounter Note* Telephone Encounter - WestleyJazz harringtonyenne Olivier - 04/20/2025 8:57 AM EDT Patient calling in to let office know she was just discharged from [facility]. She made an appt to see on 04/25, however she states they gave her oxycodone to help with her pain, and she only has 4left. She is wondering if she is able to get another refill. Please review and advise. Kiana Christy April 20, 2025 8:59 AM [facility]07-23-2025 [facility]07-23-2025 Consult note Author Lexy Milan [facility] Note Date/Time April 19, 2025 1:16 pm [facility] Medical Records Department [address] [place] [address] Counseling Note - Pharmacy 04/19/25 1031 MR#: [id number] Acct: [id number] Name: GRACIE BANUELOS Rep #:[id number] : 1965 59 From: Lexy Milan PCP: Dr. Misbah Elkins MD Status:ADM I N Y Location: [place] [address] Pharmacy [facility] Counseling Pharmacy Service has performed [...] tablet 50 mg PO Q6 PRN pain 07/14/25 oxycodone 5 mg tablet 5 mg PO Q8H PRN PRN Pain Score 6-10 3 days #10 tabs 04/19/25 04/19/25 1031 <Electronically signed by Lexy Milan> Date _ Lexy Milan Cosigner Signature (if applicable): Date CC: ~ Signed [facility] Work Phone: 1(759) 589-871707-23-2025 Discharge summary Author Sudhir Izquierdo [facility] Note Date/Time April 19, 2025 9:33 am [facility] Medical Records Department [address] [place] [address] Instructions for Home/Discharge Instructions 04/19/25 0907 MR#: [id number] Acct: [id number] Name: GRACIE BANUELOS Rep #:[id number] : 1965 59 From: Sudhir pace MD [...] DO; Dr. Bert Greenwood MD ~ Signed [facility] Work Phone: 1(592) 174-329407-22-2025 Progress note Author Sudhir Izquierdo [facility] Note Date/Time April 18, 2025 5:53 pm [facility] Medical Records Department [address] [facility] [place] [address] Progress Note - Hospitalist 04/18/25 1744 MR#: [id number] Acct: [id number] Name: GRACIE BANUELOS Rep #:[id number] : 1965 59 From: Sudhir pace MD PCP: Dr. Misbah Elkins MD Status:ADM I N Location: [place] [address] Subjective Subjective History of chronic pancreatitis continue [...] % (Auto) 60.1, Lymph % (Auto) 23.8, [place] % (Auto) 7.0, Eos % (Auto) 8.1 [...] DVT: Lovenox Charges/Coding Visit Charges Inpatient E&M: 68597 Subs Hosp L2 04/18/25 1753 <Electronically signed by Sudhir Izquierdo MD> Cosigner Signature (if applicable): CC: ~ Signed [facility] Work Phone: 1(982) 709-702907-21-2025 Progress note Author Bert Greenwood [facility] Note Date/Time April 17, 2025 4:[address] [facility] Medical Records Department [address] [place] [address] Progress Note - Hospitalist 04/17/25 1640 MR#: [id number] Acct: [id number] Name: GRACIE BANUELOS Rep #:[id number] : 1965 59 From: Bert Nixon PCP: Dr. Misbah Elkins MD Status:ADM I N Location: [place] [address] Reason for Visit Chief Complaint: Abdominal Pain. [...] (Auto) 69.0, Lymph % (Auto) 16.6 L, [place] % (Auto) 8.3, Eos % (Auto) 5.0, [...] respiratory failure, intubation and then transferred to [facility]. Patient is very concerned of fluid overload at this time. She complained of pain 7-8 in right lower quadrant though she is tender all over. No fever. She had a pancreatic stent in the past in [facility] by Dr. Portillo. She also had pain [...] stent on 03/11/[address] Portillo in [facility]. She was discharged on 03/15/transferred to [facility]. 1. Acute on chronic pancreatitis: CT [...] (Auto) 72.4 H, Lymph % (Auto)14.6 L, [place] % (Auto) 7.0, Eos % (Auto) 4.9, [...] Clarity Clear, Urine pH 7.0, Ur Specific [place] 1.005, Urine Protein 15 H, Urine Glucose [...] 74.2 H, Lymph % (Auto) 14.2 L, [place] % (Auto) 7.0, Eos % (Auto) 3.7, [...] (Auto) 69.0, Lymph % (Auto) 16.6 L, [place] % (Auto) 8.3, Eos % (Auto) 5.0, [...] 90 H Charges/Coding Visit Charges Inpatient E&M: 73680 Subs Hosp L2 04/17/25 1643 <Electronically signed by Bert Greenwood MD> Cosigner Signature (if applicable): CC: ~ Signed [facility] Work Phone: 1(731) 571-926407-20-2025 Progress note Author Bert Greenwood [facility] Note Date/Time April 16, 2025 3:27 pm [facility] Medical Records Department [address] [place] [address] Progress Note - Hospitalist 04/16/25 1503 MR#: [id number] Acct: [id number] Name: GRACIE BANUELOS Rep #:[id number] : 1965 59 From: Bert Nixon PCP: Dr. Misbah Elkins MD Status:ADM I N Location: [place] [address] Reason for Visit Chief Complaint: Abdominal Pain. [...] (Auto) 72.4 H, Lymph % (Auto)14.6 L, [place] % (Auto) 7.0, Eos % (Auto) 4.9, [...] Clarity Clear, Urine pH 7.0, Ur Specific [place] 1.005, Urine Protein 15 H, Urine Glucose [...] 74.2 H, Lymph % (Auto) 14.2 L, [place] % (Auto) 7.0, Eos % (Auto) 3.7, [...] in the pancreatic head/uncinate process. Reading Location: [place] [address] Physical Exam Narrative Seen and examined. Admitted for acute on chronic pancreatitis She was admitted last time in second week of February and at that time she had a fluid overload resulting into respiratory failure, intubation and then transferred to [facility]. Patient is very concerned of fluid overload at this time. She complained of pain 7-8 in right lower quadrant though she is tender all over. No fever. She had a pancreatic stent in the past in [facility] by Dr. Portillo. She also had pain [...] stent on 03/11/[address] Portillo in [facility]. She was discharged on 03/15/transferred to [facility]. 1. Acute on chronic pancreatitis: CT [...] mg daily per hour with clear liquid. Freedom criteria is 2 point though LDH not [...] (Auto) 72.4 H, Lymph % (Auto)14.6 L, [place] % (Auto) 7.0, Eos % (Auto) 4.9, [...] Clarity Clear, Urine pH 7.0, Ur Specific [place] 1.005, Urine Protein 15 H, Urine Glucose [...] 74.2 H, Lymph % (Auto) 14.2 L, [place] % (Auto) 7.0, Eos % (Auto) 3.7, [...] TSH 1.340 Charges/Coding Visit Charges Inpatient E&M: 70202 Subs Hosp L2 04/16/25 1527 <Electronically signed by Bert Greenwood MD> Cosigner Signature (if applicable): CC: ~ Signed [facility] Work Phone: 1(138) 375-735507-20-2025 History and physical note Author Jackson Chopra [facility] Note Date/Time April 16, 2025 6:[address] [facility] Medical Records Department [address] [place] [address] H&P Exam - Hospitalist 04/16/25 0049 MR#: [id number] Acct: [id number] Name: GRACIE BANUELOS Rep #:[id number] : 1965 59 From: Jackson Holcomb DO PCP: Dr. Misbah Elkins MD Status:ADM I N [facility] - General General Date of Admission: 04/16/25 [...] pancreatitis, history of pancreatic stent placement at [facility] on March 10, 2025 with patient inthe process of transferring her care to Dr. Segura of gastroenterology here, history of stenosis of Left subclavian artery, chronic anemia, depression with anxiety; on aripiprazole and mirtazapine, GERD; on pantoprazole and OA; with chronic back pain on meloxicam and as needed tramadol every 6 hours who [facility] complaining of abdominal pain. Ms. Banuelos [...] intermittent pain since her recent treatment at [facility] thatincluded pancreatic duct placement with removal of [...] of the abdomen and pelvis which revealed Epjkk-ai-Luuhopq Pancreatitis in the pancreatic head/uncinate process with corresponding laboratory evidence of elevated lipase of 239 units/L and Leukocytosis of 18.9 Kpresent on admission complicated by Hypertensive Urgency with elevated blood pressure of 194/71 mmHg noted shortly after admission. She was then admitted tot general medical floor for ongoing care for state that is expected to extend beyond 2 midnights. [facility] Medical History (Updated 04/16/25 @ 01:[address] Jackson Monk, DO) Encounter for replacement of pancreatic stent [...] Allergy Other Verified 04/15/25 22:49 hydrocodone (From [place]) AdvReac Itching Verified 04/15/25 22:49 Family History [...] (Auto) 72.4 H, Lymph % (Auto)14.6 L, [place] % (Auto) 7.0, Eos % (Auto) 4.9, [...] Clarity Clear, Urine pH 7.0, Ur Specific [place] 1.005, Urine Protein 15 H, Urine Glucose [...] in the pancreatic head/uncinate process. Reading Location: [place] [address] Assessment & Plan Assessment/Plan (1) Acute on [...] of the abdomen and pelvis which revealed Mpqoj-oo-Azoxnfn Pancreatitis inthe pancreatic head/uncinate process with corresponding laboratory evidence of elevated lipase of 239 units/L - Admit to general medical floor. Keep strict NPO. Give pantoprazole 40 mg IV daily. Give ondansetron IV as needed nausea vomiting. Give promethazine IM as needed for breakthrough nausea. Give ketorolac IV for ayna-fv-rlihpdln (level 1-5/10) pain or fever. Give morphine [...] 4. History of pancreatic stent placement at [facility] on March 10, 2025 with patient in [...] 75 minutes. Charges/Coding Visit Charges Inpatient E&M: 97164 Init Hosp L3 04/16/25 0601 <Electronically signed by Jackson Monk DO> Cosigner Signature (if applicable): CC: Dr. Misbah Elkins MD; Dr. Jackson Monk DO~ Signed [facility] Work Phone: 1(339) 882-311407-20-2025 Discharge summary Author Erik Gomez [facility] Note Date/Time April 16, 2025 12:5 6am [facility] Medical Records Department [address] [place] [address] Emergency Department Summary 04/15/25 MR#: [id number] Acct: [id number] Name: GRACIE BANUELOS Rep #:[id number] : 1965 59 From: Erik Gomez MD [...] stent put in on March 10 at [facility], it was placed due to chronic pancreatitis [...] had a cigarette in over 2 weeks. [facility] Medical History Encounter for replacement of [...] Allergy Other Verified 04/15/25 22:49 hydrocodone (From [place]) AdvReac Itching Verified 04/15/25 22:49 Family History Mother Diabetes Hypertension Heart disease High cholesterol Arthritis Thyroid disorder Brother Hypertension Sister Cancer cervical Thyroid disorder Father Kidney disease Daughter Thyroid disorder Surgical History (Reviewed 04/10/25 @ 10:18 by Ani Eduardo SERVICE COUNTER CASHIER, SERVICE COUNTER CASHIER-C) History of tubal ligation History of colonoscopy [...] 72.4 H Lymph % (Auto) 14.6 L [place] % (Auto) 7.0 Eos % (Auto) 4.9 [...] Clarity Clear Urine pH 7.0 Ur Specific [place] 1.005 Urine Protein 15 H Urine Glucose [...] in the pancreatic head/uncinate process. Reading Location: [place] [address] Management Discussion w/another healthcare provider: Hospitalist Discharge Plan Dx/Rx/DC Orders Clinical Impression: Acute on chronic pancreatitis, Presence of pancreatic duct stent Disposition Disposition: Acute Care Hospital [facility] What to do if you have Problems For any increased pain, shortness of breath, bleeding, nausea or vomiting, chestpain, or any unexpected problems, contact your Primary Care Provider. Call [facility] ([phone]) or report to the closest Emergency Room. Call 911 if necessary. 04/16/25 0056 <Electronically signed by Erik Gomez MD> Cosigner Signature (if applicable): CC: Dr. Misbah Elkins MD ~ Signed [facility] Work Phone: 1(903) 454-141807-20-2025 Radiology Diagnostic study [facility]07-19-2025 Discharge summary Author Erik Gomez [facility] Note Date/Time April 16, 2025 12:5 6am [facility] Medical Records Department [address] [place] [address] Emergency Department Summary 04/15/25 MR#: [id number] Acct: [id number] Name: GRACIE BANUELOS Rep #:[id number] : 1965 59 From: Erik Gomez MD [...] stent put in on March 10 at [facility], it was placed due to chronic pancreatitis [...] had a cigarette in over 2 weeks. [facility] Medical History Encounter for replacement of [...] Allergy Other Verified 04/15/25 22:49 hydrocodone (From [place]) AdvReac Itching Verified 04/15/25 22:49 Family History Mother Diabetes Hypertension Heart disease High cholesterol Arthritis Thyroid disorder Brother Hypertension Sister Cancer cervical Thyroid disorder Father Kidney disease Daughter Thyroid disorder Surgical History (Reviewed 04/10/25 @ 10:18 by Ani Eduardo SERVICE COUNTER CASHIER, SERVICE COUNTER CASHIER-C) History of tubal ligation History of colonoscopy [...] 72.4 H Lymph % (Auto) 14.6 L [place] % (Auto) 7.0 Eos % (Auto) 4.9 [...] Clarity Clear Urine pH 7.0 Ur Specific [place] 1.005 Urine Protein 15 H Urine Glucose [...] in the pancreatic head/uncinate process. Reading Location: [place] [address] Management Discussion w/another healthcare provider: Hospitalist Discharge Plan Dx/Rx/DC Orders Clinical Impression: Acute on chronic pancreatitis, Presence of pancreatic duct stent Disposition Disposition: Acute Care Hospital [facility] What to do if you have Problems For any increased pain, shortness of breath, bleeding, nausea or vomiting, chestpain, or any unexpected problems, contact your Primary Care Provider. Call [facility] ([phone]) or report to the closest Emergency Room. Call 911 if necessary. 04/16/2555 <Electronically signed by Erik Gomez MD> Cosigner Signature (if applicable): CC: Dr. Misbah Elkins MD ~ Signed [facility] Work Phone: 1(173) 892-648007-15-2025 Telephone encounter Note* Telephone Encounter - Yuly France - 04/11/2025 9:33 AM EDT Transitional Care Management ([facility]) [facility] Monitoring Program Provider Action / FYI: na SUMMARY: Outreach type: INITIAL OUTREACH Discharge Network Status: In-Network [facility] Patient discharged from [facility] on 03.23.25. Admitted for acute on chronic respiratory failure with hypoxia. . . . . Contact made with patient: No - 2nd unsuccessful attempt - end outreach and close encounter. Yuly France April 11, 2025 9:34 AM [facility]07-15-2025 Miscellaneous Notes* Telephone Encounter - Yuly France - 04/11/2025 9:33 AM EDT Transitional Care Management ([facility]) [facility] Monitoring Program Provider Action / FYI: na SUMMARY: Outreach type: INITIAL OUTREACH Discharge Network Status: In-Network [facility] Patient discharged from [facility] on 03.23.25. Admitted for acute on chronic respiratory failure with hypoxia. . . . . Contact made with patient: No - 2nd unsuccessful attempt - end outreach and close encounter. 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 Author Type: Nurse Specialist Type: [...] stent placement 03/10. Patient was transferred from [facility]. There she was found to have acute pancreatitis. She had a stent placed in the body of the pancreas however on CT scan at the other hospital she had new peripancreatic inflammation. She was also experiencing acute hypoxic respiratory failure and was emergently intubated and transferred to [facility] ICU. 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 Pancreatic Stent Placement: - Stent placed by Dr. Garrido at [facility]. - Persistent abdominal pain radiating to [...] following stent placement led to hospitalization at [facility], then transferred to [facility] due to fluid overload and septic [...] 38.3 37.0 O2 Thera (more content not included)...[facility]07-14-2025 History of Present illness Narrative* Nicolas Greer UNA.BIT SANDER - 04/10/2025 1:55 PM EDT Subjective Patient [...] stent placement 03/10. Patient was transferred from [facility]. There she was found to have acute pancreatitis. She had a stent placed in the body of the pancreas however on CT scan at the other hospital she had new peripancreatic inflammation. She was also experiencing acute hypoxic respiratory failure and was emergently intubated and transferred to [facility] ICU. 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 Pancreatic Stent Placement: - Stent placed by Dr. Garrido at [facility]. - Persistent abdominal pain radiating to [...] following stent placement led to hospitalization at [facility], then transferred to [facility] due to fluid overload and septic [...] Negative Ketones, Urine Negative 1+ ! Specific [place], Ur 1.005 - 1.030 1.026 Hemoglobin/Blood,Ur Negative [...] pneumonia; required mechanical ventilation. - Follow-up with line mechanic Dr. Ani Post today; noted mild wheezing [...] duct stent placement by Dr. Garrido at [facility]. - Persistent abdominal pain, described as severe [...] environmental cleaning to prevent transmission. Nicolas Greer APRN.BIT SANDER Medical Decision Making: Problems: Moderate: Acute illness with systemic symptoms Data: Unique source(s) for external note(s) reviewed: 1 Unique test result(s) reviewed: 3+ Risk: Moderate: Drug management Medical Decision Making Level: 4 - Moderate documented in this encounterMiddletown Hospital07-14-2025 Telephone encounter Note * Telephone Encounter - Sirisha Francebunny - 04/10/2025 9:35 AM EDT Transitional Care Management (TCM) [facility] Monitoring Program Provider Action / FYI: na SUMMARY: Outreach type: INITIAL OUTREACH Discharge Network Status: In-Network Discharge Source of Patient: [facility] TCM Discharge Report Patient discharged from [facility] on 03.23.25. Admitted for acute on chronic respiratory failure with hypoxia. . . . Contact made with patient: No - next outreach attempt will be on next business day. Yuly France April 10, 2025 9:37 AM [facility]07-14-2025 Miscellaneous Notes* Telephone Encounter - Yuly France - 04/10/2025 9:35 AM EDT [facility] Provider Action / FYI: na SUMMARY: Outreach type: INITIAL OUTREACH Discharge Network Status: In-Network Discharge Source of Patient: [facility] TCM Discharge Report Patient discharged from [facility] on 03.23.25. Admitted for acute on chronic respiratory failure with hypoxia. . . . Contact made with patient: No - next outreach attempt will be on next business day. Yuly France April 10, 2025 9:37 AM documented in this encounterMiddletown Hospital07-08-2025 Telephone encounter Note * Telephone Encounter - Juan Borjas MA - 04/04/2025 4:31 PM EDT Patient r/s to 04/10/25 with TB. Juan Borjas MA [facility]07-08-2025 Miscellaneous Notes* Telephone Encounter - Juan [...] r/s. Juan Borjas MA documented in this encounterMiddletown Hospital07-08-2025 Telephone encounter Note * Telephone Encounter - Rosy Blancas - 04/04/2025 3:12 PM EDT Transitional Care Management (TCM) [facility] Monitoring Program Provider Action / FYI: NA SUMMARY: Outreach type: INITIAL OUTREACH Discharge Network Status: In-Network Discharge Source of Patient: [facility] TCM Discharge Report Patient discharged from [facility] on 03.23.25. Admitted for acute on chronic respiratory failure with hypoxia. . . Contact made with patient: No, for Follow-up - end outreach and close encounter. Rosy Blancas April 04, 2025 3:15 PM [facility]07-08-2025 Miscellaneous Notes* Telephone Encounter - Rosy Blancas - 04/04/2025 3:12 PM EDT Transitional Care Management (TCM) [facility] Monitoring Program Provider Action / FYI: NA SUMMARY: Outreach type: INITIAL OUTREACH Discharge Network Status: In-Network Discharge Source of Patient: [facility] TCM Discharge Report Patient discharged from [facility] on 03.23.25. Admitted for acute on chronic respiratory failure with hypoxia. . . Contact made with patient: No, for Follow-up - end outreach and close encounter. Rosy Blancas April 04, 2025 3:15 PM documented in this encounterMiddletown Hospital07-08-2025 Telephone encounter Note * Telephone Encounter - Nellie Duke - 04/04/2025 2:25 PM EDT Patient unaware that her appt with Milly today was cancelled and she is looking to reschedule, please advise. [facility]07-08-2025 Miscellaneous Notes* Telephone Encounter - Nellie Duke - 04/04/2025 2:25 PM EDT Patient unaware that her appt with Milly today was cancelled and she is looking to reschedule, please advise. documented in this encounterMiddletown Hospital07-08-2025 Telephone encounter Note * Telephone Encounter [...] assist patient with r/s. Juan Borjas MA [facility]07-08-2025 Telephone encounter Note* Telephone Encounter - Yuly France - 04/04/2025 9:45 AM EDT Transitional Care Management (TCM) [facility] Monitoring Program Provider Action / FYI: na SUMMARY: Outreach type: INITIAL OUTREACH Discharge Network Status: In-Network Discharge Source of Patient: [facility] TCM Discharge Report Patient discharged from [facility] on 03.23.25. Admitted for acute on chronic respiratory failure with hypoxia. . Contact made with patient: No - 2nd unsuccessful attempt - end outreach and close encounter. Yuly France April 04, 2025 9:47 AM [facility]07-08-2025 Miscellaneous Notes* Telephone Encounter - Yuly France - 04/04/2025 9:45 AM EDT Transitional Care Management (TCM) [facility] Monitoring Program Provider Action / FYI: na SUMMARY: Outreach type: INITIAL OUTREACH Discharge Network Status: In-Network Discharge Source of Patient: [facility] TCM Discharge Report Patient discharged from [facility] on 03.23.25. Admitted for acute on chronic respiratory failure with hypoxia. . Contact made with patient: No - 2nd unsuccessful attempt - end outreach and close encounter. Yuly France April 04, 2025 9:47 AM documented in this encounterMiddletown Hospital07-02-2025 Telephone encounter Note * Telephone Encounter - Juan Bloom LPN - 03/29/2025 3:51 PM EDT VM left on listed number to discuss symptoms. Juan Bloom LPN [facility] Work Phone: 1(748) 998-678107-02-2025 Miscellaneous Notes* Telephone Encounter - Juan Bloom LPN - 03/29/2025 3:51 PM EDT VM left on listed number to discuss symptoms. Juan Bloom LPN * Telephone Encounter - Dayana Bone - 03/29/2025 1:49 PM EDT Patient called the office with concerns about server developer diarrhea. Patient is not sure if it is nte medication gabapetion or a virus. Patient would like a call back. Please review and advise. Dayana documented in this encounterMiddletown Hospital07-02-2025 Telephone encounter Note * Telephone Encounter - Dayana Bone - 03/29/2025 1:49 PM EDT Patient called the office with concerns about server developer diarrhea. Patient is not sure if it is nte medication gabapetion or a virus. Patient would like a call back. Please review and advise. Dayana [facility]07-01-2025 Telephone encounter Note* Telephone Encounter - Herman Nevarez RN - 03/28/2025 1:02 PM EDT Transitional Care Management (TCM) [facility] Monitoring Program Provider Action / FYI: N/A SUMMARY: Outreach type: INITIAL OUTREACH Discharge Network Status: In-Network [facility] Patient discharged from [facility] on 03/23/25. Admitted for acute on chronic respiratory failure with hypoxia. Contact made with patient: No - next outreach attempt will be on next business day. Herman Nevarez RN March 28, 2025 1:04 PM [facility]07-01-2025 Miscellaneous Notes* Telephone Encounter - Herman Nevarez RN - 03/28/2025 1:02 PM EDT Transitional Care Management (TCM) [facility] Monitoring Program Provider Action / FYI: N/A SUMMARY: Outreach type: INITIAL OUTREACH Discharge Network Status: In-Network Discharge Source of Patient: [facility] TCM Discharge Report Patient discharged from [facility] on 03/23/25. Admitted for acute on chronic respiratory failure with hypoxia. Contact made with patient: No - next outreach attempt will be on next business day. Herman Nevarez RN March 28, 2025 1:04 PM documented in this encounterMiddletown Hospital06-26-2025 NoteHNO ID: [id number] Author: KERRI AARON RN Service: Nursing Author Type: Registered Nurse Type: Progress Notes Filed: 03/23/2025 19:49 Note Text: Patient has been discharged from the unit. IV removed with tip intact. Telemetry removed, cleaned and returned. Discharge papers and instructions given to patient. Oxygen tank provided to patient upon discharge.[facility] 03-23-2025 NoteHNO ID: [id number] Author: INNA SEBASTIAN RN Service: Care Management [...] needed Transportation Arrangements Transportation Arrangements: Uber/Lyft (through [employer]) Handoff Communication: Handoff to: Computer Networking Instructor Adjunct Computer Networking Instructor Adjunct Name/Phone: misbah elkins Additional Information: N/A Discharge Information Row Name Admission (Current) from 03/15/2025 in [facility] Durable Medical Equipment Agency [employer] Needed walker delivered to room prior [...] does not have a car. provided patient [facility] transport number to call for transport home. Cm also called [facility] and [place] will bring a tank to patient today [...] Banuelos DATE: March 23, 2025 TIME: 3:02 [facility]06-26-2025 NoteHNO ID: [id number] Author: AGUSTINA MURRAY CPhT Service: ? Author Type: Consumer Loan Manager Type: Plan of Care Filed: 03/23/2025 14:12 Note Text: PHARMACY BEDSIDE DELIVERY SERVICE Patient Name: Gracie Banuelos The marked outpatient medications were Filled at: [facility] and delivered to the patient's bedside [...] tablet Commonly known as: DELTASONE Agustina Murray [facility] PAGER: kaur March 23, 2025 2:03 [facility]06-26-2025 NoteHNO ID: [id number] Author: INNA SEBASTIAN RN Service: Care Management [...] therapy on dc. Patient is interested in SILK SCREEN FRAME ASSEMBLER, plans to go home with sister and sister can assist in all care. Maribel called insurance about SILK SCREEN FRAME ASSEMBLER and CM also provided SILK SCREEN FRAME ASSEMBLER information provided 03/21. Patient requesting walker for home going. FOC provided as gianna. Order placed and gianna notified of need. Plan home, CM monitoring for need for increase in o2 at home. Gianna needs notified on day of dc to deliver walker. Order placed. CM will follow. SIGNATURE: Inna Sebastian RN PATIENT NAME: Gracie Banuelos DATE: March 23, 2025 TIME: 8:53 [facility]06-25-2025 NoteHNO ID: [id number] Author: GURJIT RAYO MD Service: Hospital Medicine [...] 1,200 mg ORAL q 12 H Ipratropium [place] 1 spray nasal spray (ATROVENT) 1 spray [...] stent placement 03/10. Patient was transferred from [facility]. There she was found to have acute pancreatitis. She had a stent placed in the body of the pancreas however on CT scan at the other hospital she had new peripancreatic inflammation. She was alsoexperiencing acute hypoxic respiratory failure and was emergently intubated and transferred to [facility] ICU. She required vasopressor support [...] aeration - Pulm following (more content not included)...[facility]06-25-2025 NoteHNO ID: [id number] Author: INNA SEBASTIAN RN Service: Care Management [...] therapy on dc. Patient is interested in SILK SCREEN FRAME ASSEMBLER, plans to go home with sister and sister can assist in all care. Paient instructed to call insurance about SILK SCREEN FRAME ASSEMBLER and SILK SCREEN FRAME ASSEMBLER information provided this date. Patient requesting walker [...] Banuelos DATE: March 22, 2025 TIME: 9:46 [facility]06-24-2025 NoteHNO ID: [id number] Author: INNA SEBASTIAN RN Service: Care Management Author Type: Registered Nurse Type: Care Mgt Progress Note Filed: 03/21/2025 11:09 Note Text: CARE MANAGEMENT PROGRESS NOTE SERVICE DATE: 03/21/2025 SERVICE TIME: 11:06 AM LOS: 6 days [place] of Choice Given: Yes Level of Care [...] therapy on dc. Patient is interested in SILK SCREEN FRAME ASSEMBLER, plans to go home with sister and sister can assist in all care. Paient instructed to call insurance about SILK SCREEN FRAME ASSEMBLER and SILK SCREEN FRAME ASSEMBLER information provided this date. Patient requesting walker for home going. FOC provided as gianna. Order placed and gianna notified of need. Patient will also call kamini to bring tank to her for discharge and see how high her home concentrator goes (if it goes to 5L or 10L). Plan home, CM monitoring for need for increase in o2 at home. [place] needs notified on day of dc to deliver walker. Order placed. CM will follow. SIGNATURE: Inna Sebastian RN PATIENT NAME: Gracie Banuelos DATE: March 21, 2025 TIME: 11:06 [facility]06-24-2025 Telephone encounter Note* Telephone Encounter - Holly [...] Holly Jensen March 21, 2025 8:57 AM [facility]06-24-2025 Miscellaneous Notes* Telephone Encounter - Holly [...] 21, 2025 8:57 AM documented in this encounterMiddletown Hospital06-24-2025 NoteHNO ID: [id number] Author: GURJIT RAYO MD Service: Hospital Medicine [...] stent placement 03/10. Patient was transferred from [facility]. There she was found to have acute pancreatitis. She had a stent placed in the body of the pancreas however on CT scan at the other hospital she had new peripancreatic inflammation. She was alsoexperiencing acute hypoxic respiratory failure and was emergently intubated and transferred to [facility] ICU. She required vasopressor support [...] DC vancomycin - Spu (more content not included)...[facility]06-23-2025 NoteHNO ID: [id number] Author: GURJIT RAYO MD Service: Hospital Medicine [...] stent placement 03/10. Patient was transferred from [facility]. There she was found to have acute pancreatitis. She had a stent placed in the body of the pancreas however on CT scan at the other hospital she had new peripancreatic inflammation. She was alsoexperiencing acute hypoxic respiratory failure and was emergently intubated and transferred to [facility] ICU. She required vasopressor support due to septic shock and was noted to have bilateral pneumonia. She was extubated and transferred to the floors. She remained hemodynamically stable off pressors but had increasing oxygen requirements. Acute on chronic hypoxic respiratory failure (more content not included)...[facility]06-23-2025 NoteHNO ID: [id number] Author: INNA SEBASTIAN RN Service: Care Management [...] Banuelos DATE: March 20, 2025 TIME: 8:36 [facility]06-22-2025 NoteHNO ID: [id number] Author: NGUYEN PALACIOS DO Service: Hospital Medicine Author Type: Physician Type: Plan of Care Filed: 03/28/2025 17:20 Note Text: There was a BAG MACHINE OPERATOR HELPER called on this patient due to elevated [...] to R/O PE. Echo does not show CHF.[facility]06-22-2025 NoteHNO ID: [id number] Author: NGUYEN PALACIOS DO Service: Hospital Medicine [...] 5 L NC. Patient was transferred from [facility]. There she was found to have acute pancreatitis. She had a stent placed in the body of the pancrease however on CT scan at the other hospital she had new peripancreatic inflammation. She was also experiencing acute hypoxic respiratory failure and was emergently intubated and transferred to [facility]. Patient was admitted [facility] ICU. She was on levophed [...] and Airways Line Duration Peripheral 03/16/25 0000 [facility] Short Right Forearm 18 Gauge 3 days Peripheral 03/16/25 0000 External Facility Short Left Antecubital 20 Gauge 3 days Peripheral 03/16/25 0000 External Facility Short Right Antecubital 20 Gauge 3 days Reviewed lines and needs to be continued: REASONS: Difficulty in obtaining/maintaining access DATA: Diagnostic tests reviewed for today's visit: Most recent labs Most recent imaging Assessment/Virgen (more content not included)...[facility]06-22-2025 Note HNO ID: [id number] Author: AGUSTINA PACHECO, RN Service: Care Management [...] was completed 03/10. She initially presented to [facility] but was a transfer to [facility] following intubation. She is being treated for respiratory failure/PNA/chronic pancreatitis/sepsis.She is being treated with aerosols, IV antibiotics, and vasopressor support. At her baseline she is independent in her ADL's with the exception of transport which her family provides. Her DME includes a bipap, shower chair, and 5L NC reportedly from [facility]. She is established with her PCP, uses [...] Banuelos DATE: March 19, 2025 TIME: 10:08 [facility]06-21-2025 NoteHNO ID: [id number] Author: NGUYEN PALACIOS DO Service: Hospital Medicine Author Type: Physician Type: Plan of Care Filed: 03/18/2025 13:58 Note Text: This is a 59 year old female with past medical history of COPD, Chronic hypoxic respiratory failure on 5 L NC. Patient was transferred from [facility]. There she was found to have acute pancreatitis. She had a stent placed in the body of the pancrease however on CT scan at the other hospital she had new peripancreatic inflammation. She was also experiencing acute hypoxic respiratory failure and was emergently intubated and transferred to [facility]. Patient was [facility] ICU. She was on levophed [...] check iron studies. Keep hemoglobin greater than 7[facility] NoteHNO ID: [id number] Author: GERSON MCCALL MD Service: Critical Care [...] (GEODON) 40 mg caps (more content not included)...[facility]06-20-2025 NoteHNO ID: [id number] Author: GERSON MCCALL MD Service: Critical Care [...] MonitorHome blood pressure monitorDisp (more content not included)...[facility]06-19-2025 NoteHNO ID: [id number] Author: ANNETTA HUYNH RN Service: Care Management Author Type: Registered Nurse Type: Care Mgt Initial Assessment Filed: 03/17/2025 09:01 Note Text: CARE MANAGEMENT: ASSESSMENT AND DISCHARGE PLAN SERVICE DATE: March 16, 2025 SERVICE TIME: 1400 PCP: Misbah Elkins MD Primary Contact: Extended Emergency Contact Information Primary Emergency Contact: Domonique Banuelos [place] Relation: Sister Secondary Emergency Contact: Kasie Hernandez [place] Relation: Daughter Admission Status: Inpatient Insurance Provider: [employer] Discharge Planning requested by: Per Department Practice Potential Transition Plans Home, Home Care, Home OT/PT, Group Home Facility/Intermediate Care Facility, To Be Determined Advance Directives Current Advance Directive: Health Care Power of Manager Human Resources In Chart: No Mixer Tender Attempted to Assist with AD Completion: No [...] Be able to go home, General wellness [place] Explained: [place] Given: Yes Level of Care Discussed: Home Care, Group Home Facility Are you interested in bedside delivery [...] were you homeless or living in a snf (including now)?: No Utilities In the past 12 months has the [employer], gas, oil, or water [employer] threatened to shut off services in your home?: No [place] Given: Yes Level of Care Discussed: Home Care, Group Home Facility Financial Disclosure Provided: Yes Provider List: Home Care, Group Home Facility Provider list within the patient's requested geographic area shared with the patient/family: Yes within: 20 miles of zip code: [address] Quality and resource use metrics shared with the patient that are relevant to the patient's goals of care and treatment preferences:: Yes Late entry 03/17 0850. Chart reviewed. Patient came to the hospital from home with two of her adult children for epigastric pain. Her pain reportedly started following a pancreatic stent placement which was completed 03/10. She initially presented to [facility] but was a transfer to [facility] following intubation. She is being treated for respiratory failure/PNA/chronic pancreatitis/sepsis.She is being treated with aerosols, IV antibiotics, and vasopressor support.As she is vented/sedated plan was discussed with her daughter Caitie Ferro. At her baseline she is independent in her ADL's with the exception of transport which her family provides. Her DME includes a bipap, shower chair, and 5L NC reportedly from [facility]. Her home oxygen orders will need verified. She is established with her PCP, uses no community resources, and can afford her medications. At this time plan is TBD pending clinical course. I provided SNF/HHC lists for her family to review. Patient has a HCPOA on file which appoints her daughter Caitie hernandez. Her contact number is [phone]. The first alternate is her sister Domonique Banuelos- [phone]. SIGNATURE: Annetta Huynh RN PATIENT NAME: Gracie Banuelos DATE: March 16, 2025 TIME: 2:52 [facility] NoteHNO ID: [id number] Author: TRENTON HECK APRN.IGOR Service: Critical Care Author Type: Nurse Practitioner Type: Procedures Filed: 03/16/2025 14:10 Note Text: BEDSIDE PROCEDURE NOTE CENTRAL LINE INSERTION Date/Start Time: 03/16/2025 1:30 PM Date/Stop Time: 03/16/2025 1:50 PM Performed by: Trenton Heck APRN.COMPANY MARKER Authorized by: Trenton Heck APRN.COMPANY MARKER Where was Patient When this Procedure was Performed: Bedside/Unscheduled Procedure Room Informed Consent Consent Obtained: Verbal (Sister Domonique) [place] Protocol A moment to CARE was completed. [...] was applied following the usual aseptic technique. [facility] Central Line Insertion Checklist, attached to [...] Clarke DATE: March 16, 2025 TIME: 2:07 PM[facility] Telephone encounter Note* Telephone Encounter - Eva Martines RN - 03/16/2025 1:20 PM EDT Patient's daughter calls and wanted provider aware that patient is currently at [facility] on aVentilator. Daughter apologizes for forgetting to cancel appointment yesterday. Daughter states that mother was being put on a ventilator at that time. Eva Martines RN [facility]06-19-2025 Miscellaneous Notes* Telephone Encounter - Eva Martines RN - 03/16/2025 1:20 PM EDT Patient's daughter calls and wanted provider aware that patient is currently at [facility] on aVentilator. Daughter apologizes for forgetting to cancel appointment yesterday. Daughter states that mother was being put on a ventilator at that time. Eva Martines RN documented in this [facility]06-[facility]-2025 NoteHNO ID: [id number] Author: GERSON MCCALL MD Service: Critical Care [...] muscle spasm.Disp: 15 table (more content not included)...[facility]06-19-2025 [facility]06-19-2025 NoteHNO ID: [id number] Author: MAKSIM ANDERSON APRN.COMPANY MARKER Service: ? Author Type: Nurse Practitioner Type: Progress Notes Filed: 03/16/2025 07:05 Note Text: CRITICAL CARE TRANSPORT MEDICAL CONTROL CONSULT NOTE Patient Name: Gracie Banuelos Service Date: March 16, 2025 Referring Facility: [facility] Accepting Facility: [facility] REASON FOR TRANSPORT: Higher level intensive care services not available at the referring facility REASON FOR CONSULT: Hypotension and Sedation CCT MEDICAL CONTROL CONSULT SUMMARY: History, physical exam findings, and available background patient information from [facility] Transport Nurse were reviewed at the time of consult. Pertinent additional information was reviewed as follows: [facility] transport request log In brief, Gracie Banuelos is a 59 year old female with a history, known at time of consult, significant for Smoking and COPD (5L N/C at home) who was admitted to [facility] for evaluation of Acute on Chronic Pancreatitis [...] HCO3 26.8. Patient is being transferred to [facility] for higher level intensive care services [...] confirmed and read back via telephone with [facility] Transport space studies faculty member, Dung Coe, Power Plant Operator Apprentice SIGNATURE: Maksim Anderson APRN.[facility] Acute Care Nurse Practitioner Critical [facility] History of Present illness Narrative* Maksim Anderson APRN.COMPANY MARKER - 03/16/2025 5:45 AM EDT Images from the original note were not included. CRITICAL CARE TRANSPORT MEDICAL CONTROL CONSULT NOTE Patient Name: Gracie Banuelos Service Date: March 16, 2025 Referring Facility: [facility] Accepting Facility: [facility] REASON FOR TRANSPORT: Higher level intensive [...] N/C at home) who was admitted to [facility] for evaluation of Acute on Chronic Pancreatitis [...] HCO3 26.8. Patient is being transferred to [facility] for higher level intensive care services [...] read back via telephone with CCT Transport space studies faculty member, Dung Coe, Power Plant Operator Apprentice SIGNATURE: Maksim Anderson APRN.CNP Acute Care Nurse Practitioner Critical Care Transport documented in this encounterMiddletown Hospital06-19-2025 HtaiHEIP-HGR-5 (AGENT OF COVID-19) RNA: Not detected INFLUENZA A RNA: Not detected INFLUENZA B RNA: Not detected RESPIRATORY SYNCYTIAL VIRUS (RSV) RNA: Not detectedCurry General HospitalComment on above:Performed By: #### [id number] #### [facility] CLIA [id number] [address] [place] [address] OF [id number] Respiratory pathogens DNA and RNA 12b panel [...] DNA: Not detected BORDETELLA PARAPERTUSSIS DNA: Not detectedCurry General HospitalComment on above:Performed By: #### 23376-2 #### [facility] CLIA [id number] [address] [place], [place] [id number] [employer] OF [id number] Progress note Author Sudhir Izquierdo [facility] Note Date/Time March 15, 2025 8:39 pm [facility] Medical Records Department [address] [place] [address] Progress Note 03/15/252036 MR#: [id number] Acct: [id number] Name: GRACIE BANUELOS Rep #:[id number] : 1965 59 From: Sudhir pace MD [...] Cosigner Signature (if applicable): CC: ~ Signed [facility] Work Phone: 1(169) 893-803806-18-2025 Progress note Author Sudhir Izquierdo [facility] Note Date/Time March 15, 2025 7:20 pm [facility] Medical Records Department [address] [facility] [place] [address] Progress Note 03/15/251917 MR#: [id number] Acct: [id number] Name: GRACIE BANUELOS Rep #:[id number] : 1965 59 From: Sudhir pace MD [...] Cosigner Signature (if applicable): CC: ~ Signed [facility] Work Phone: 1(324) 817-686906-18-2025 Progress note Author Sudhir Izquierdo [facility] Note Date/Time March 15, 2025 7:17 pm [facility] Medical Records Department [address] [place] [address] Progress Note 03/15/251913 MR#: [id number] Acct: [id number] Name: GRACIE BANUELOS Rep #:[id number] : 1965 59 From: Sudhir pace MD [...] less than 1 cc. Procedures Hospitalists Procedures: 22728 Insert Emergency Airway 03/15/251916 <Electronically signed by Sudhir Izquierdo MD> Sudhir Izquierdo MD Cosigner Signature (if applicable): CC: ~ Signed [facility] Work Phone: 1(762) 359-965506-18-2025 Progress note Author Sudhir Izquierdo [facility] Note Date/Time March 15, 2025 7:13 pm [facility] Medical Records Department [address] [place] [address] Progress Note 03/15/251911 MR#: [id number] Acct: [id number] Name: GRACIE BANUELOS Rep #:[id number] : 1965 59 From: Sudhir pace MD [...] intubation is emergent. Will also call the [facility] transfer line to change designation to critical care patient to see if this expedites transfer. 03/15/251912 <Electronically signed by Sudhir Izquierdo MD> Sudhir Izquierdo MD Cosigner Signature (if applicable): CC: ~ Signed [facility] Work Phone: 1(942) 495-554706-18-2025 Progress note Author Sudhir Izquierdo [facility] Note Date/Time March 15, 2025 7:12 pm [facility] Medical Records Department [address] [place] [address] Progress Note - Hospitalist 03/15/251907 MR#: [id number] Acct: [id number] Name: GRACIE BANUELOS Rep #:[id number] : 1965 59 From: Sudhir pace MD PCP: Dr. Misbah Elkins MD Status:ADM I N Location: ICU [facility] 3-1 Subjective Subjective Seems to have some [...] 83.6 H, Lymph % (Auto) 5.8 L, [place] % (Auto) 6.1, Eos % (Auto) 0.3, [...] lower lobes. Enlarged cardiac silhouette. [facility] Chest [facility]-Ray 03/15/25 17:00 IMPRESSION: As above. Reading Location: [id number] Physical Exam Narrative General: Alert, Oriented x3, [...] show she is pending transfer back to [facility] ? Remain n.p.o. ? Will [...] DVT: Lovenox Charges/Coding Visit Charges Inpatient E&M: 60160 Subs Hosp L3 03/15/251911 <Electronically signed by Sudhir Izquierdo MD> Cosigner Signature (if applicable): CC: ~ Signed [facility] Work Phone: 1(751) 736-247806-18-2025 Radiology Diagnostic study [facility]06-18-2025 Consult note Author Gonzalo Sebastian [facility] Note Date/Time March 15, 2025 11:[address] [facility] Medical Records Department [address] [place] [address] Consultation - Lactation Coordinator 03/15/25819 MR#: [id number] Acct: [id number] Name: GRACIE BANUELOS Rep #:[id number] : 1965 59 From: Gonzalo Sebastian DO [...] respiratory status worsens. 6. Awaiting transfer to [facility], pending bed availability. IMPRESSIONS: 1. Acute [...] patient was recently discharged on Thursday from [facility] following pancreatic stent placement. She presented again with worsening abdominal pain and elevatedlipase and was subsequently placed on supplemental IV fluids, with transfer pending to [facility]. 3. History of hypertension/hyperlipidemia/anxiety/depression/GERD/hypothyroidism/tobacco dependency Complicates care, management, recovery and prognosis. Continue home medicationsas indicated along with supportive care as noted above. This note was generated with [employer] dictation software. It may contain incorrectwords, spelling, [...] prior alcohol use with recent hospitalization at [facility] last week for pancreatic stent placement, [...] was made to proceed with transfer to [facility] for further management. Although the patient [...] vascular congestion. BNP is elevated at 4257. [facility] Medical History (Reviewed 02/08/25 @ 13:18 by Ani Eduardo SERVICE COUNTER CASHIER, SERVICE COUNTER CASHIER-C) Stenosis of left subclavian artery Pulmonary nodule [...] Allergy Other Verified 02/26/25 13:57 hydrocodone (From [place]) AdvReac Itching Verified 02/26/25 13:57 Family History (Reviewed 02/08/25 @ 13:18 by Ani Eduardo SERVICE COUNTER CASHIER, SERVICE COUNTER CASHIER-C) Mother Diabetes Hypertension Heart disease High cholesterol [...] 83.6 H, Lymph % (Auto) 5.8 L, [place] % (Auto) 6.1, Eos % (Auto) 0.3, [...] lower lobes. Enlarged cardiac silhouette. Reading [facility] Charges/Coding Visit Charges Inpatient E&M: 33686 Init Hosp L3 03/15/25 1151 <Electronically signed by Gonzalo Sebastian DO> Cosigner Signature (if applicable): CC: Dr. Misbah Elkins MD~ Signed [facility] Work Phone: 1(561) 733-996606-18-2025 Radiology Diagnostic study [facility]06-17-2025 Progress note Author Sudhir Izquierdo [facility] Note Date/Time March 14, 2025 10:3 6am [facility] Medical Records Department [address] [place] [address] Progress Note - Hospitalist 03/14/25 1025 MR#: [id number] Acct: [id number] Name: GARCIE BANUELOS Rep #:[id number] : 1965 59 From: Sudhir pace MD PCP: Dr. Misbah Elkins MD Status:ADM I N Location: [place] [address] Subjective Subjective No issues overnight, leukocytosis is [...] (Auto) 83.5 H, Lymph% (Auto) 6.3 L, [place] % (Auto) 8.1, Eos % (Auto) 0.5, [...] Clarity Clear, Urine pH 7.0, Ur Specific [place] 1.005, Urine Protein 30 H, Urine Glucose [...] (Auto) 81.7 H, Lymph% (Auto) 9.0 L, [place] % (Auto) 6.4, Eos % (Auto) 1.2, [...] at the time of dictation. Reading [facility] Chest X-Ray 03/13/25 12:40 IMPRESSION: No evidence of acute cardiopulmonary pathology. Reading Location: [id number] Physical Exam Narrative General: Alert, Oriented x3, [...] show she is pending transfer back to [facility] ? Remain n.p.o. ? Continue [...] DVT: Lovenox Charges/Coding Visit Charges Inpatient E&M: 94607 Subs Hosp L2 03/14/25 1036 <Electronically signed by Sudhir Izquierdo MD> Cosigner Signature (if applicable): CC: ~ Signed [facility] Work Phone: [phone]) 543-397406-17-2025 Evaluation note* Diagnosis Onset Date Resolution Status [...] dustin 2024 1:00pm Asthma chronic May 24 025 1:00pm Chronic respiratory failure with hypoxia chronic May 24 1:00pm COPD (chronic obstructive pulmonary disease) chronic May 24, 2025 1:00pm Smoking greater than 30 pack years chronic May 24 1:00pm History of insertion of pancreatic stent acute July 06 9:16am Chronic pancreatitis chronic Octo 2024 9:16am Alcohol abuse resolved June 9:16am [facility] Work Phone: 1([phone]) 410-472606-17-2025 History and physical note Author Pako Fernández [facility] Note Date/Time March 13, 2025 11:2 8pm [facility] Medical Records Department [address] [place] [address] History & Physical Exam 03/13/25 2320 MR#: [id number] Acct: [id number] Name: GRACIE BANUELOS Rep #:[id number] : 1965 59 From: Pako Fernández MD [...] several months. She was recently admitted to [facility] and treated by GI specialist Dr. Portillo. She had a surgery performed for her pancreatitis and a stent was placed this past Thursday. Patient states she has had worsening epigastric abdominal pain since discharge on Thursday. She denies fever, chills, shortness of breath, chest pain, diarrhea constipation or dysuria. Patient has been accepted to [facility] for transferfrom the emergency room, however, a bed is not available this evening and patient will be admitted temporarily in our facility while pending transfer to tertiary care facility to address pancreatic stent and acute pancreatitis. [facility] Medical History (Reviewed 02/08/25 @ 13:18 by Ani Eduardo SERVICE COUNTER CASHIER, SERVICE COUNTER CASHIER-C) Stenosis of left subclavian artery Pulmonary nodule [...] Allergy Other Verified 02/26/25 13:57 hydrocodone (From [place]) AdvReac Itching Verified 02/26/25 13:57 Family History [...] (Auto) 83.5 H, Lymph% (Auto) 6.3 L, [place] % (Auto) 8.1, Eos % (Auto) 0.5, [...] Clarity Clear, Urine pH 7.0, Ur Specific [place] 1.005, Urine Protein 30 H, Urine Glucose [...] at the time of dictation. Reading Location: [facility] Chest X-Ray 03/13/25 12:40 IMPRESSION: No evidence of acute cardiopulmonary pathology. Reading Location: [facility] Assessment & Plan Assessment/Plan (1) Smoking greater than 30 pack years: (2) COPD (chronic obstructive pulmonary disease): QUALIFIERS: COPD type: emphysema Emphysema type: centrilobular Qualified Code(s): J43.2 - Centrilobular emphysema (3) Abdominal pain: (4) Chronic pancreatitis: QUALIFIERS: Pancreatitis type: alcohol induced Qualified Code(s):K86.0 - Alcohol-induced chronic pancreatitis PLAN: Plan 1. Acute on chronic pancreatitis?admit patient temporarily to our facility pending transfer to [facility], make n.p.o., IV normal saline [...] routinely 4. DVT prophylaxis?low molecular weight heparin 03/13/255 <Electronically signed by Pako Fernández MD> Cosigner Signature (if applicable): CC: Dr. Misbah Elkins MD; Dr. Pako Fernández MD~ Signed [facility] Work Phone: 1(725) 289-106206-17-2025 Discharge summary Author Macario Feliz[facility] Note Date/Time March 13, 2025 11:[address] [facility] Medical Records Department [address] [place] [address] Emergency Department Summary 03/13/25 MR#: [id number] Acct: [id number] Name: GRACIE BANUELOS Rep #:[id number] : 1965 59 From: Macario mccain DO PCP: Dr. Misbah Elkins MD Status:REG E R Location: ED ADDENDUM by Dr. Rica Doe DO on 03/13/25 at 2315 Care of patient turned over to ut awaiting transfer to [facility] for abdominal pain and pancreatitis. Patient had more abdominal discomfort while awaiting transfer and I did give her 4 mg of morphine and 4 mg of Zofran. Patient also walked to the bathroom and back and became hypoxic on her oxygen. She has history of COPD. I did give her a DuoNeb aerosol. [facility] was contacted and they will not [...] states she had a recent admission at [facility] in which she wasseen by a GI [...] intact Psych: Cooperative, appropriate mood and affect [facility] Medical History (Reviewed 02/08/25 @ 13:18 by Ani Eduardo SERVICE COUNTER CASHIER, SERVICE COUNTER CASHIER-C) Stenosis of left subclavian artery Pulmonary nodule [...] Allergy Other Verified 02/26/25 13:57 hydrocodone (From [place]) AdvReac Itching Verified 02/26/25 13:57 Family History [...] placed on Thursday with Dr. Garrido at [facility]. Differential diagnosis includes but is not limited [...] body of the pancreas ascending into the Baby and 2nd/3rd portion of the duodenum, unchanged. [...] is in agreement. We reached out to [facility], they have no record of the patient. Patient was informed of this and now states she cannot care at [facility]. Reached out to the transfer line at [facility]. I spoke with Dr. Pascual BENÍTEZ who [...] 83.5 H Lymph % (Auto) 6.3 L [place] % (Auto) 8.1 Eos % (Auto) 0.5 [...] Color Urine Clarity Urine pH Ur Specific [place] Urine Protein Urine Glucose (UA) Urine Ketones [...] (Auto) Neut % (Auto) Lymph % (Auto) [place] % (Auto) Eos % (Auto) Baso % [...] Clarity Clear Urine pH 7.0 Ur Specific [place] 1.005 Urine Protein 30 H Urine Glucose [...] evidence of acute cardiopulmonary pathology. Reading Location: [id number] Discharge Plan Triage Chief Complaint: Abd Pain [...] MD [Primary Care Provider] - Print Language: Kosovan What to do if you have Problems For any increased pain, shortness of breath, bleeding, nausea or vomiting, chestpain, or any unexpected problems, contact your Primary Care Provider. Call [facility] ([phone]) or report to the closest Emergency Room. Call 911 if necessary. 03/13/25 5253 <Electronically signed by Macario Alex DO> Cosigner Signature (if applicable): CC: Dr. Misbah Elkins MD ~ Signed [facility] Work Phone: 1(826) 425-185706-16-2025 [facility]06-16-2025 Discharge summary Author Macario Alex [facility] Note Date/Time March 13, 2025 11:1 5pm [facility] Medical Records Department [address] [place] [address] Emergency Department Summary 03/13/25 MR#: [id number] Acct: [id number] Name: GRACIE BANUELOS Rep #:[id number] : 1965 59 From: Macario mccain DO PCP: Dr. Misbah Elkins MD Status:REG E R Location: ED ADDENDUM by Dr. Rica Doe DO on 03/13/25 at 2315 Care of patient turned over to me awaiting transfer to [facility] for abdominal pain and pancreatitis. Patient had more abdominal discomfort while awaiting transfer and I did give her 4 mg of morphine and 4 mg of Zofran. Patient also walked to the bathroom and back and became hypoxic on her oxygen. She has history of COPD. I did give her a DuoNeb aerosol. [facility] was contacted and they will not [...] states she had a recent admission at [facility] in which she wasseen by a GI [...] intact Psych: Cooperative, appropriate mood and affect [facility] Medical History (Reviewed 02/08/25 @ 13:18 by Ani Eduardo SERVICE COUNTER CASHIER, SERVICE COUNTER CASHIER-C) Stenosis of left subclavian artery Pulmonary nodule [...] Allergy Other Verified 02/26/25 13:57 hydrocodone (From [place]) AdvReac Itching Verified 02/26/25 13:57 Family History [...] placed on Thursday with Dr. Garrido at [facility]. Differential diagnosis includes but is not limited [...] is in agreement. We reached out to [facility], they have no record of the patient. Patient was informed of this and now states she cannot care at [facility]. Reached out to the transfer line at [facility]. I spoke with Dr. Pascual BENÍTEZ who [...] 83.5 H Lymph % (Auto) 6.3 L [place] % (Auto) 8.1 Eos % (Auto) 0.5 [...] Color Urine Clarity Urine pH Ur Specific [place] Urine Protein Urine Glucose (UA) Urine Ketones [...] (Auto) Neut % (Auto) Lymph % (Auto) [place] % (Auto) Eos % (Auto) Baso % [...] Clarity Clear Urine pH 7.0 Ur Specific [place] 1.005 Urine Protein 30 H Urine Glucose [...] at the time of dictation. Reading Location: [facility] Chest X-Ray 03/13/25 12:40 IMPRESSION: No evidence of acute cardiopulmonary pathology. Reading Location: [facility] Discharge Plan Triage Chief Complaint: Abd Pain [...] 25 mg tablet 25 mg PO TID Ravinder Aerosphere 160-9-4.8 mcg/actuation HFA aerosol inhaler 2 [...] MD [Primary Care Provider] - Print Language: Kosovan What to do if you have Problems For any increased pain, shortness of breath, bleeding, nausea or vomiting, chestpain, or any unexpected problems, contact your Primary Care Provider. Call [facility] ([phone]) or report to the closest Emergency Room. Call 911 if necessary. 03/13/25 1716 <Electronically signed by Macario Alex DO> Cosigner Signature (if applicable): CC: Dr. Misbah Elkins MD ~ Signed [facility] Work Phone: 1(954) 879-988406-16-2025 Radiology Diagnostic study [facility]06-16-2025 Radiology Diagnostic study [facility] Work Phone: 1(449) 207-149306-16-2025 Telephone encounter Note* Telephone Encounter - Juan [...] to leave a message. Juan Bloom LPN [facility] Work Phone: [phone] 112-952506-16-2025 Miscellaneous Notes* Telephone Encounter - Juan Bloom [...] that this was Domonique- and she helps Grcaie with her medical issues- I have attempted x3 to call Domonique - listed number - it goes straight to voicemail and the mail box is full and I am unable to leave a message. Juan Bloom LPN * Telephone Encounter - Isis Gil - 03/13/2025 9:57 AM EDT Gracie calling #[phone] Patient states she's in a lot of [...] Thank you Isis Joe documented [facility]06-[facility] Telephone encounter Note * Telephone Encounter - Isis Gil - 03/13/2025 9:57 AM EDT Gracie calling #[phone] Patient states she's in a lot of [...] to someone first. Thank you Isis Joe [facility]06-13-2025 Nurse Note* Janis Ac, SARWAT - 03/10/2025 5:[address] Chakraborty anesthesia ok d patient to be discharged Three hot packs given to patient for right arm [facility]06-13-2025 Nurse Note* Janis cA RN - 03/10/2025 5:[address] [...] patient Gracie and sister Magui spoke to [employer] nurse nutrition manager Reshma [facility] office number given. Pharmacy called, [facility] pharmacist [...] RN In Department: GASTROENTEROLOGY documented in this encounterMiddletown Hospital06-13-2025 Nurse Note* Janis Ac RN - 03/10/2025 4:33 PM EDT Patient states her arm where the infiltration occurred it is burning Patient informed to keep an eye on the infiltrated area so a blister does not form of it does go to the Emergency room [facility]06-13-2025 Nurse Note* Janis Ac RN - 03/10/2025 4:02 PM EDT Right AC IV infiltrated with 100cc IV Propofol large swollen red hard area Hot pack applied Patientcrying stating arm hurts patient Gracie and sister Magui spoke to [employer] nurse nutrition manager Reshma Garcia office number given. Pharmacy called, [facility] pharmacist notified unable to help. Called Drug information line spoke with Milan stated monitor patient There is no information in regards to amount of time Propofol will take to infuse .Patient is awake alert oriented x3 [facility]06-13-2025 Nurse Note* Janis Ac RN - 03/10/2025 3:[address] Chakraborty anesthesia notified patients blood pressure low 73/52 74/51 Albumin 25 grams given Patient awake alert oriented x3 skin warm and dry [facility]06-13-2025 Nurse Note* Janis Ac RN - [...] MATERIAL: Procedure Discharge Instructions REFERRAL (RECOMMENDATION): None [facility]06-13-2025 NoteQ3 Patient Name: Gracie Banuelos Procedure Date: 03/10/2025 1:46 PM Date of : 1965 Admit Type: Outpatient Age: 59 Gender: Female Note Status: Finalized Attending MD: Jane Farrell MD, [id number] Procedure: ERCP Indications: Chronic pancreatitis, For therapy [...] procedure well. Moderate Sedation: GA Findings: A conformal pad former film of the abdomen was obtained. Multiple [...] remove stent. Procedure Code(s): --- Professional --- 43463, Endoscopic retrograde cholangiopancreatography (ERCP); with placement of endoscopic stent into biliary or pancreatic duct, including pre- and post-dilation and guide wire passage, when performed, including sphincterotomy, when performed, each stent 23860, Endoscopic retrograde cholangiopancreatography (ERCP); with removal of calculi/debris from (more content not included)...[id number] NoteHNO ID: [id number] Author: VANESSA PEREZ APRN.IMAGING AIDE Service: ? Author Type: Nurse Missile Tracking Technician Type: Anesthesia Procedure Notes Filed: 03/10/2025 14:41 Note Text: ANESTHESIOLOGY PROCEDURE NOTE Airway General Information Procedure Start Time/Medication Administration: 03/10/2025 2:15 PM Procedure End Time: 03/10/2025 2:15 PM Patient location during procedure: OR Timeout Performed Pre-procedure: timeout performed Consent Obtained: Yes Patient identity confirmed: arm band, care team sports sales associate and patient Staffing IMAGING AIDE: Vanessa Perez APRN.IMAGING AIDE Performed by: LISETTE Indications and Patient Condition Indications for airway management: anesthesia and airway protection Preoxygenated: yes anesthesia circuit Patient position: sniffing Method: sleep Difficult Mask: No Final Airway Details Final airway type: endotracheal airway Final Endotracheal Airway: ETT Cuffed: yes Successful intubation technique: video laryngoscopy Devices used: Winerist Endotracheal tube insertion site: oral Blade size: #3 ETT size (mm): 7.0 Measured from: lips Measurement (cm): 21 Placement verified by: capnometry Cormack-Lehane Classification: grade I - full view of glottis Number of attempts at approach: 1 Airway not difficult SIGNATURE: Vanessa Perez APRN.IMAGING AIDE PATIENT NAME: Gracie Banuelos DATE: March 10, 2025 TIME: 2:40 PM CS[facility]: [id number] NoteQ3 Patient Name: Gracie Banuelos Procedure Date: 03/10/2025 1:46 PM Date of : 1965 Admit Type: Outpatient Age: 59 Gender: Female Note Status: Finalized Attending MD: Jane Farrell MD, [id number] Procedure: ERCP Indications: Chronic pancreatitis, For therapy [...] procedure well. Moderate Sedation: GA Findings: A conformal pad former film of the abdomen was obtained. Multiple [...] remove stent. Procedure Code(s): --- Professional --- 20569, Endoscopic retrograde cholangiopancreatography (ERCP); with placement of endoscopic stent into biliary or pancreatic duct, including pre- and post-dilation and guide wire passage, when performed, including sphincterotomy, when performed, each stent 32137, Endoscopic retrograde cholangiopancreatography (ERCP); with removal of calculi/debris from biliary/pancreatic duct(s) 91078, Endoscopic catheterization of the pancreatic ductal system, radiological supervision and interpretation Diagnosis Code(s): --- Professional --- K86.89, Other specified diseases of pancreas K86.1, Other chronic pancreatitis R93.2, Abnormal findings on diagnostic imaging of liver and biliary tract CPT copyright 2020 [employer]. All rights reserved. Attending Participation: I personally performed the entire procedure. Scope In: 2:28:14 PM Scope Out: 2:49:25 PM MD Jane Fields MD 03/10/2025 3:19:29 PM This report has been signed electronically by Jane Farrell MD Number of Addenda: 0 Note Initiated On: 03/10/2025 1:46 [facility]06-13-2025 Nurse Note* Adrian Edmond RN - 03/10/2025 [...] By: Adrian Edmond RN In Department: GASTROENTEROLOGY [facility]06-10-2025 Telephone encounter Note* Telephone Encounter - Isis Gil - 03/07/2025 2:29 PM EDT Patient called, did not receive email. She stated it had to all be in lower case. I resent email Thank you Isis Joe [facility]06-10-2025 Miscellaneous Notes* Telephone Encounter - Isis [...] MD Department of Gastroenterology- Advanced Endoscopy [address] [id number] 03/07/2025 Pt. name: Gracie Banuelos 1965 MEDICAL Procedure This is to certify that Gracie Banuelos this is a letter to confirm that Gracie has a procedure at [facility] on 03/10 with an arrival time of 12pm. This appointment needs to have a responsible adult dumpcart driver to accompany her for transportation to and after her procedure. Sincerely, Jane Farrell MD * Telephone Encounter - Isis Gil - 03/07/2025 11:40 AM EDT She stated there was supposed to be a letter or some document to be faxed over to [facility] to help pay for her gas prior to her ERCP on 03/10/25 Email: [email or web address] Are we able to get that sent over for patient? Thank you Isis Joe documented in this encounterMiddletown Hospital06-10-2025 Telephone encounter Note * Telephone Encounter - Juan Bloom LPN - 03/07/2025 12:28 PM EDT Images from the original note were not included. Jane Farrell MD Department of Gastroenterology- Advanced Endoscopy [address] [place], [place] [id number] 03/07/2025 Pt. name: Gracie Banuelos 1965 MEDICAL Procedure This is to certify that Gracie Banuelos this is a letter to confirm that Gracie has a procedure at [facility] on 03/10 with an arrival time of 12pm. This appointment needs to have a responsible adult dumpcart driver to accompany her for transportation to and after her procedure. Sincerely, Jane Farrell MD [facility] Work Phone: 1(281) 785-820806-10-2025 NoteHNO ID: [id number] Author: JUAN BLOOM LPN Service: ? Author Type: LICENSED NURSE Type: Progress Notes Filed: 03/07/2025 12:28 Note Text: Jane Farrell MD Department of Gastroenterology- Advanced Endoscopy [address] [id number] 03/07/2025 Pt. name: Gracie Banuelos 1965 MEDICAL Procedure This is to certify that Gracie Banuelos this is a letter to confirm that Gracie has a procedure at [facility] on 03/10 with an arrival time of 12pm. This appointment needs to have a responsible adult dumpcart driver to accompany her for transportation to and after her procedure. Sincerely, Jane Farrell [facility]06-10-2025 History of Present illness Narrative* Juan Bloom LPN - 03/07/2025 11:57 AM EDT Images from the original note were not included. Jane Farrell MD Department of Gastroenterology- Advanced Endoscopy [address] [id number] 03/07/2025 Pt. name: Gracie Banuelos 1965 MEDICAL Procedure This is to certify that Gracie Banuelos this is a letter to confirm that Gracie has a procedure at [facility] on 03/10 with an arrival time of 12pm. This appointment needs to have a responsible adult dumpcart driver to accompany her for transportation to and after her procedure. Sincerely, Jane Farrell MD documented in this encounterMiddletown Hospital06-10-2025 Telephone encounter Note * Telephone Encounter - Isis Gil - 03/07/2025 11:40 AM EDT She stated there was supposed to be a letter or some document to be faxed over to [employer] to help pay for her gas prior to her ERCP on 03/10/25 Email: [email or web address] Are we able to get that sent over for patient? Thank you Isis Joe [facility]06-09-2025 Telephone encounter Note* Telephone Encounter - Juan Senior APRN.CNP - 03/06/2025 3:53 PM EDT Patient calling to discuss anxiety related to ERCP on Saturday 03/10. She is wondering if she can receive something for anxiety prior to procedure. Patient instructed to ask Dr. Farrell prior. Patient also asking for email to be sent to [employer] ([employer] with proof ofprocedure for gas money. Patient also reports diarrhea and changes in mental status/forgetfulness and extreme fatigue after increasing gabapentin dose. Instructed patient to decrease dose from TID to BID. Also strongly encouraged patient to keep upcoming appointment with pain management. All questions answered at this time. Will follow up after procedure. Juan Senior APRN.CNP [facility] Work Phone: [phone] Miscellaneous Notes* Telephone Encounter - Juan Senior APRN.CNP - 03/06/2025 3:53 PM EDT Patient calling to discuss anxiety related to ERCP on Saturday 03/10. She is wondering if she can receive something for anxiety prior to procedure. Patient instructed to ask Dr. Farrell prior. Patient also asking for email to be sent to [employer] ([employer]) with proof ofprocedure for [...] 300 mg capsule. Please send script to: [facility] [address] [place] [address] [address] - [phone] [568] Dayanajosefina Martell documented in this encounterMiddletown Hospital06-09-2025 Telephone encounter Note * Telephone Encounter - Caitlin Obrien RN - 03/06/2025 11:30 AM EDT Attempted to reach patient to answer he questions from call this morning, no answer. VM left to call the office back. [facility] Work Phone: 1(610) 818-810706-09-2025 Miscellaneous Notes* Telephone Encounter - Caitlin Obrien RN - 03/06/2025 11:30 AM EDT Attempted to reach patient to answer he questions from call this morning, no answer. VM left to call the office back. documented in this encounterMiddletown Hospital06-09-2025 Telephone encounter Note * Telephone Encounter - Isis Gil - 03/06/2025 9:04 AM EDT Gracie calling #[phone] Patient is calling regarding wanting to speak [...] voicemail is ok. Thank you Isis Joe [facility]06-09-2025 Miscellaneous Notes* Telephone Encounter - Isis Gil - 03/06/2025 9:04 AM EDT Gracie calling #[phone] Patient is calling regarding wanting to speak [...] Thank you Isis Joe documented in this encounterMiddletown Hospital06-06-2025 Nurse Note* Jaelyn Kothari RN - 03/03/2025 9:48 AM EDT Attempted to reach the patient at the contact number that they provided [phone] (home) . Unable to speak with patient so without identifying the patient the following information was left on their voice mail: Date of procedure, location and report time A message was left informing the patient/patient service representative they must have a responsible [...] Number to call with questions or concerns [phone] Number to call to cancel their procedure [phone] Jaelyn Kothari RN [facility]06-06-2025 Nurse Note* Jaelyn Kothari RN - 03/03/2025 9:48 AM EDT Attempted to reach the patient at the contact number that they provided [phone] (home) . Unable to speak with patient so without identifying the patient the following information was left on their voice mail: Date of procedure, location and report time A message was left informing the patient/patient service representative they must have a responsible [...] Number to call with questions or concerns [phone] Number to call to cancel their procedure [phone] Jaelyn Kothari RN documented in this encounterMiddletown Hospital06-01-2025 Radiology Diagnostic study [facility]05-16-2025 Telephone encounter Note* Telephone Encounter - Pam Pino - 02/10/2025 11:31 AM EDT Received / transmitted outside records to patient's chart. See scanned documents tab (clearance letter). [facility] Work Phone: [phone]) [phone] Miscellaneous Notes* Telephone Encounter - Pam Pino - 02/10/2025 11:31 AM EDT Received / transmitted outside records to patient's chart. See scanned documents tab (clearance letter). documented in this encounterMiddletown Hospital05-14-2025 Evaluation note* Diagnosis Onset Date Resolution [...] 10 9:57am Chronic respiratory failure with hypoxia April 10, [...] Chronic pancreatitis chronic April 26, 2025 1:34pm [facility] Work Phone: 1(536) 913-979105-14-2025 Evaluation note* Diagnosis Onset Date Resolution Status [...] Chronic pancreatitis chronic April 26, 2025 1:34pm [facility] Work Phone: 1(755) 539-495005-14-2025 Evaluation note* Diagnosis Onset Date Resolution Status [...] 30 pack years chronic May 24 1:00pm [facility] Work Phone: [phone]) 702-382305-09-2025 Telephone encounter Note* Telephone Encounter - Dayana Bone - 02/03/2025 2:45 PM EDT Patient called the office and would like a refill for gabapentin (NEURONTIN) 300 mg capsule. Please send script to: [[facility] [place] [address] [address] - [phone] [119] Dayana Martell [facility]04-29-2025 Telephone encounter Note* Telephone Encounter - [...] Holly Jensen January 24, 2025 8:59 AM [facility]04-29-2025 Miscellaneous Notes* Telephone Encounter - Holly [...] 24, 2025 8:59 AM documented in this encounterMiddletown Hospital04-22-2025 Telephone encounter Note * Telephone Encounter - Mihaela Cadena - 01/17/2025 12:01 PM EDT Appears patient was seen on 01/13/25 [facility]04-22-2025 Miscellaneous Notes* Telephone Encounter - Mihaela [...] extra strength Ibuprofen 400 mg. Patient uses [facility], [employer]. documented in this encounterMiddletown Hospital04-18-2025 NoteHNO ID: [id number] Author: SOILA EASTON APRN.COMPANY MARKER Service: ? Author Type: Nurse Practitioner Type: Progress Notes Filed: 01/13/2025 11:33 Note Text: CC: Patient presents with: Recheck: Follow up HPI Gracie Banuelos is a 59 year old female who presents today for gout concerns. Recording using RUN software for draft documentation of the visit was discussed with the patient/authorized service representative; all questions welcomed and answered. 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 - Denies redness or red streaking; COPD [...] will be in the 90s. 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 - Concerns about potential need for ventilator post-surgery. - Under care of Dr. Sebastian and Ani at [facility]. - No recent infections, fever, or [...] Stage 3 severe COPD by GOLD classification ([facility]) 2018 Tobacco use greater than 30 years Unspecified hemorrhoids without mention of complication Urine, incontinence, stress female 11/24/2014 PAST SURGICAL HISTORY Procedure Laterality Date APPENDECTOMY at age 14 COLONOSCOPY 04/15/[address], [address] Paul Perez. COLONOSCOPY 01/23/2015 2-Tubular adenomas. Dr. Víctor Lopze. COLONOSCOPY 07/29/2017 normal COLONOSCOPY - DIAGNOSTIC 01/10/2021 [...] by mouth once daily. (more content not included)...[facility]04-18-2025 History of Present illness Narrative* Soila Easton APRN.COMPANY MARKER - 01/13/2025 11:11 AM EDT CC: Patient presents with: Recheck: Follow up HPI Gracie Banuelos is a 59 year old female who presents today for gout concerns. Recording using RUN software for draft documentation of the visit was discussed with the patient/authorized service representative; all questions welcomed and answered. 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 - Denies redness or red streaking; COPD [...] will be in the 90s. 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 - Concerns about potential need for ventilator post-surgery. - Under care of Dr. Sebastian and Ani at [facility]. - No recent infections, fever, or [...] Stage 3 severe COPD by GOLD classification ([facility]) 2018 Tobacco use greater than 30 years [...] evaluation will be necessary. - Recommended tart kenee juice for anti-inflammatory benefits. 2. Calculus of pancreatic duct (HCC) (K86.89) 3. Chronic recurrent pancreatitis (HCC) (K86.1) - Undergoing evaluation and management by [facility] specialists at [facility]. - Awaiting pancreatic stent placement; pulmonary [...] care of Dr. Sebastian and Ani at [facility]. - No recent infections, fever, or [...] plan. Soila Easton APRN.CNP documented in this encounterMiddletown Hospital04-17-2025 Telephone encounter Note * Telephone Encounter - Marge Perkins RN - 01/12/2025 1:15 PM EDT Pt has appointment with Soila Easton Np on 01/14/24. [facility]04-17-2025 Miscellaneous Notes* Telephone Encounter - Marge Perkins RN - 01/12/2025 1:15 PM EDT Pt has appointment with Soila Easton Emergency Department on 01/14/24. * Telephone Encounter - Aleta Carroll MA - 01/10/2025 9:51 AM EDT Spoke with pt, she states she has urinary incontinence and trouble holding her urine when she is outside her home. Sent rx to [facility]. FYI: Pt scheduled appt tomorrow with Soila Easton to discuss multiple concerns. Aleta Carroll MA * Telephone Encounter - Misbah Elkins MD - 01/09/2025 10:00 PM EDT Please confirm with her, the symptoms for which she needs the pull ups, Misbah Cisneros MD * Telephone Encounter - Marge Perkins RN - 01/09/2025 7:13 PM EDT Pt called in and reports she can get pull ups paid for through [email or web address]. She states the provider jst has to [...] advise. Marge Perkins RN documented in this encounterMiddletown Hospital04-15-2025 Telephone encounter Note * Telephone Encounter - Aleta Carroll MA - 01/10/2025 9:51 AM EDT Spoke with pt, she states she has urinary incontinence and trouble holding her urine when she is outside her home. Sent rx to [facility]. FYI: Pt scheduled appt tomorrow with Soila Easton to discuss multiple concerns. Aleta Carroll MA [facility]04-14-2025 Telephone encounter Note* Telephone Encounter - Misbah Elkins MD - 01/09/2025 10:00 PM EDT Please confirm with her, the symptoms for which she needs the pull ups, Misbah Cisneros MD [facility]04-14-2025 Telephone encounter Note* Telephone Encounter - Marge Perkins RN - 01/09/2025 7:13 PM EDT Pt called in and reports she can get pull ups paid for through [email or web address]. She states the provider jst has to [...] Please call and advise. Marge Perkins RN [facility]04-14-2025 Telephone encounter Note* Telephone Encounter - Juan Bloom LPN - 01/09/2025 12:44 PM EDT Disp Refills Start End gabapentin (NEURONTIN) 300 mg capsule 60 capsule 0 01/09/2025 02/08/2025 Sig: Take 1 capsule by mouth two times a day for 30 days. Sent to pharmacy as: gabapentin (NEURONTIN) 300 mg capsule Class: Normal Route: ORAL Order: [id number] Cosign for Ordering: Required by Juan Senior APRN.COMPANY MARKER E-Prescribing Status: Sent to pharmacy (01/09/2025 12:43 PM EDT) [facility] Work Phone: 1(857) 806-732404-14-2025 Miscellaneous Notes* Telephone Encounter - Juan Bloom LPN - 01/09/2025 12:44 PM EDT Disp Refills Start End gabapentin (NEURONTIN) 300 mg capsule 60 capsule 0 01/09/2025 02/08/2025 Sig: Take 1 capsule by mouth two times a day for 30 days. Sent to pharmacy as: gabapentin (NEURONTIN) 300 mg capsule Class: Normal Route: ORAL Order: [id number] Cosign for Ordering: Required by Juan Senior APRN.COMPANY MARKER E-Prescribing Status: Sent to pharmacy (01/09/2025 12:43 [...] February. Please review and advise. Dayana Martell Sash Installer documented in this encounterMiddletown Hospital04-14-2025 Telephone encounter Note * Telephone Encounter [...] Juan Senior for recommendations. Juan Bloom LPN [facility] Work Phone: 1(185) 616-751504-14-2025 Miscellaneous Notes* Telephone Encounter - Juan Bloom [...] pain? Raisa Jimenez MA documented in this encounterMiddletown Hospital04-14-2025 Telephone encounter Note * Telephone Encounter - Raisa Jimenez RN - 01/09/2025 8:53 AM EDT Pt is calling asking that someone please contact her. She is in extreme pain and missed her pain management appt She's left several messages but is asking if you can put a script in for pain? Raisa Jimenez MA [facility]04-11-2025 Telephone encounter Note* Telephone Encounter - Dayana Bone - 01/06/2025 12:39 PM EDT Patient called the office stating that she missed her pain management appointment and would like toknow if the office would be able to prescribe her some pain medication until she is able to have her appointment in February. Please review and advise. Dayana Martell Sash Installer [facility]04-10-2025 Telephone encounter Note* Telephone Encounter - Noemí Self - 01/05/2025 1:36 PM EDT Patient called. She missed her pain management appointment today. She was rescheduled for March 14. She would like to speak to you regarding this today, if possible. [phone] (home) [facility] Work Phone: 1(753) 798-709004-10-2025 Miscellaneous Notes* Telephone Encounter - Noemí Self - 01/05/2025 1:36 PM EDT Patient called. She missed her pain management appointment today. She was rescheduled for March 14. She would like to speak to you regarding this today, if possible. [phone] (home) documented [facility] Telephone encounter Note * Telephone Encounter [...] of this medication. Please send today [facility] [place], per patient she was told to ask [...] Jordana Estes January 03, 2025 12:24 PM [facility]04-08-2025 Miscellaneous Notes* Telephone Encounter - Jordana [...] of this medication. Please send today [facility] [place], per patient she was told to [...] 03, 2025 12:24 PM documented in this encounterMidd[facility]own [facility]04-07-2025 Telephone encounter Note * Telephone Encounter - Eva Guardado - 01/02/2025 2:11 PM EDT Left message for patient to return call. When patient calls, please obtain the answers to Soila Easton's questions below or transfer to nurse to get the requested information. Eva Guardado [facility]04-07-2025 Telephone encounter Note* Telephone Encounter - Soila Easton APRN.CNP - 01/02/2025 9:26 AM EDT Hesitant to send the ibuprofen. What has she been taking for pain? She was jsut in hospital with EGD and found blood in her mouth any recent Gi bleeds? Ibuprofen can cause GI bleeds. Thank you Soila Easton APRN.CNP [facility]04-07-2025 Telephone encounter Note* Telephone Encounter - [...] Chauhan LPN January 02, 2025 8:30 AM [facility]04-06-2025 Radiology Diagnostic study [facility]04-06-2025 Discharge summary Author Leandro Sanchez [facility] Note Date/Time January 01, 2025 10:[address] [facility] Medical Records Department [address] [place] [address] Emergency Department Summary 01/01/25 MR#: [id number] Acct: [id number] Name: GRACIE BANUELOS Rep #:[id number] : 1965 59 From: Leandro Sanchez MD [...] to have surgery on December 27 at [facility], but it was postponed secondary to her line mechanic stating that she should not have surgery [...] on January 05, 4 days from now. [facility] Medical History Stenosis of left subclavian [...] Allergy Other Verified 01/01/25 20:30 hydrocodone (From [place]) AdvReac Itching Verified 01/01/25 20:30 Family History [...] was bolused normal saline 1 L intravenously. [id number] with a normal anion gap of 11. [...] interstitial markings. No focal consolidation. Reading Location: [facility] Discharge Plan Triage Chief Complaint: Abd Pain [...] pain, new or worsening symptoms. Print Language: Kosovan Disposition Disposition: Home, Self Care What to do if you have Problems For any increased pain, shortness of breath, bleeding, nausea or vomiting, chestpain, or any unexpected problems, contact your Primary Care Provider. Call [facility] ([phone]) or report to the closest Emergency Room. Call 911 if necessary. 01/01/252205 <Electronically signed by Leandro Sanchez MD> Cosigner Signature (if applicable): CC: Dr. Misbah Elkins MD ~ Signed [facility] Work Phone: 1(662) 925-778804-05-2025 Telephone encounter Note* Telephone Encounter - Tyra Meraz RN - 12/31/2024 2:32 PM EDT Patient calling with request for medication/refill: Patient/caregiver requesting refill of Motrin and Zofran be called to [facility] pharmacy at [phone]., Allergies reviewed: Yes, Medication, dosage and sig reviewed: Yes. , Do you have enough medication to last until the office reopens? Yes. ,and Have you contacted your pharmacy to ask for enough medication to get by until the office reopens? No. Patient denies any new or worsening symptoms of which a provider is not aware: Yes. [facility]04-05-2025 Miscellaneous Notes* Telephone Encounter - Tyra Meraz RN - 12/31/2024 2:32 PM EDT Patient calling with request for medication/refill: Patient/caregiver requesting refill of Motrin and Zofran be called to [facility] pharmacy at [phone]., Allergies reviewed: Yes, Medication, dosage and sig reviewed: Yes. , Do you have enough medication to last until the office reopens? Yes. ,and Have you contacted your pharmacy to ask for enough medication to get by until the office reopens? No. Patient denies any new or worsening symptoms of which a provider is not aware: Yes. documented in this encounterMidd[facility]own [facility]04-05-2025 Telephone encounter Note * Telephone Encounter - Marge Handy RN - 12/31/2024 2:08 PM EDT Patient calling with medication/refill: Patient/caregiver requesting refill of ibuprofen be called to [facility] ([place] pharmacy at [phone]., Allergies reviewed: Yes, Medication, dosage and sig [...] requested a refill of ondansetron but per [facility], she should have a refill available. [...] and had no further questions or concerns. [facility] Work Phone: 1(114) 251-803604-05-2025 Miscellaneous Notes* Telephone Encounter - Marge Handy RN - 12/31/2024 2:08 PM EDT Patient calling with medication/refill: Patient/caregiver requesting refill of ibuprofen be called to [facility] pharmacy at [phone]., Allergies reviewed: Yes, Medication, dosage and sig [...] requested a refill of ondansetron but per [facility], she should have a refill available. [...] further questions or concerns. documented in this encounterMiddletown Hospital04-05-2025 Telephone encounter Note * Telephone Encounter - Carolyne Trimble - 12/31/2024 9:25 AM EDT Patient called stating she has pain mgmt appt on 01/05. Patient is requesting zofran, and extra strength Ibuprofen 400 mg. [facility] Work Phone: 1(356) 273-867004-02-2025 Telephone encounter Note* Telephone Encounter - Juan [...] Juan Senior as well Juan Bloom LPN [facility] Work Phone: 1(805) 690-440404-02-2025 Miscellaneous Notes* Telephone Encounter - Juan Bloom [...] Patient returned call. Can be reached at: [phone] (home) * Telephone Encounter - Juan Bloom [...] and advise. Dayana Martell documented in this encounterMiddletown Hospital04-02-2025 Telephone encounter Note * Telephone Encounter - Noemí Self - 12/28/2024 3:14 PM EDT Patient returned call. Can be reached at: [phone] (home) [facility] Work Phone: 1(542) 458-488504-02-2025 Telephone encounter Note* Telephone Encounter - Juan Bloom LPN - 12/28/2024 3:02 PM EDT VM left for Gracie Banuelos to discuss current symptoms Offered to call office for discussion. Juan Bloom LPN [facility]04-02-2025 Telephone encounter Note* Telephone Encounter - Lyric Yeung - 12/28/2024 8:53 AM EDT Outside pulmonary function test & CT lung screen results scanned in Epic Lyric Yeung [facility]04-01-2025 Telephone encounter Note* Telephone Encounter - [...] COPD. Please review and advise. Dayana Martell [facility]03-28-2025 Telephone encounter Note* Telephone Encounter - Raisa Jimenez RN - 12/23/2024 12:30 PM EDT Spoke with pt and went over instructions and directions for her appt on 12/27/24. Pt wrote down verbal instructions and confirmed understanding Raisa Jimenez MA (Nell) [facility]03-28-2025 Miscellaneous Notes* Telephone Encounter - Raisa Jimenez RN - 12/23/2024 12:30 PM EDT Spoke with pt and went over instructions and directions for her appt on 12/27/24. Pt wrote down verbal instructions and confirmed understanding Raisa Lozano) CHERELLE documented in this encounterMiddletown Hospital03-28-2025 Evaluation note* Diagnosis Onset Date Resolution Status Admit Date Acute cholecystitis acute December 23, 2024 9:59am Alcoholic hepatitis chronic December 23, 2024 9:59am Anxiety and depression chronic [facility] 2024 9:59am Asthma chronic December 23 9:59am [...] 10, 2025 9:57am Anxiety and depression chronic ly 2024 9:57am Asthma chronic April 10 [...] obstructive pulmonary disease) chronic April 16 1:14am [facility] Work Phone: 1(881) 464-577003-27-2025 Telephone encounter Note* Telephone Encounter - Eileen Chavez MA - 12/22/2024 9:01 AM EDT Message sent. [facility]03-27-2025 Miscellaneous Notes* Telephone Encounter - Eileen [...] her when they are. documented in this encounterMiddletown Hospital03-27-2025 Telephone encounter Note * Telephone Encounter - Soila Easton APRN.CNP - 12/22/2024 8:07 AM EDT I am assuming this is regards to the chest xray as ordered by tara Youngblood. If so please see her result note on the xray. If not, please specify which xray I need to address. Thank you Soila Easton APRN.CNP [facility]03-26-2025 Telephone encounter Note* Telephone Encounter - Sylvia Chawla MA - 12/21/2024 2:05 PM EDT Pt informed Pt asking for xray results but still in process Sylvia Chawla MA [facility]03-26-2025 Miscellaneous Notes* Telephone Encounter - Sylvia [...] you, Tara Youngblood APRN.CNP documented in this encounterMiddletown Hospital03-26-2025 Telephone encounter Note * Telephone Encounter - Tara Youngblood APRN.CNP - 12/21/2024 9:25 AM EDT Please call patient and let her know that lab work results are improving. WBC is actually slightly improved from inpatient recent labs. Lipase level is WNL which is great. Continue as discussed in office. Thank you, Tara Youngblood APRN.COMPANY MARKER [facility] Work Phone: 1(365) [phone] Nurse Note* Carroll Leblanc RN - 12/20/2024 2:55 PM EDT Attempted to reach the patient at the contact number that they provided [phone] (home) . Unable to speak with patient so without identifying the patient the following information was left on their voice mail: Date of procedure, location and report time Prep instructions A message was left informing the patient/patient service representative they must have a responsible [...] Number to call with questions or concerns [phone] Number to call to cancel their procedure [phone] Carroll Leblanc RN T [facility]03-25-2025 Nurse Note* Carroll Leblanc RN - 12/20/2024 2:55 PM EDT Attempted to reach the patient at the contact number that they provided [phone] (home) . Unable to speak with patient so without identifying the patient the following information was left on their voice mail: Date of procedure, location and report time Prep instructions A message was left informing the patient/patient service representative they must have a responsible [...] Number to call with questions or concerns [phone] Number to call to cancel their procedure [phone] Carroll Leblanc RN documented in this encounterMiddletown Hospital03-24-2025 Telephone encounter Note * Telephone Encounter - Marge Perkins RN - 12/19/2024 6:51 PM EDT Pt called in for x-ray results. I let Pt know they are not back in yet and provider would call her when they are. [facility]03-24-2025 History of Present illness Narrative* Roland [...] PATIENT PRESENTS WITH AN IMPLANTABLE OR ATTACHED SALES REPRESENTATIVE TRAINEE: No RADIOLOGY DEPARTMENT: General X-ray: Exam(s) Completed: Chest X-Ray PERIPHERAL IV DATA: Not applicable SIGNED BY: RT Oneyda(R) December 19, 2024 3:53 PM documented in this encounterMiddletown Hospital03-24-2025 NoteHNO ID: [id number] Author: ROLAND CAMARGO RT(R) Service: Radiology Author [...] PATIENT PRESENTS WITH AN IMPLANTABLE OR ATTACHED SALES REPRESENTATIVE TRAINEE: No RADIOLOGY DEPARTMENT: General X-ray: Exam(s) Completed: Chest X-Ray PERIPHERAL IV DATA: Not applicable SIGNED BY: RT Oneyda(R) December 19, 2024 3:53 [facility]03-24-2025 History of Present illness Narrative* Tara Youngblood, UNA.COMPANY MARKER - 12/19/2024 2:40 PM EDT Chief Complaint Patient presents with: hospital f/up HPI Gracie Banuelos is a 59 year old female who presents here today for Above Complaints. Gracie is an established patient of Dr. Satnam MD. Concerns today.. Hospital follow-up--- [facility] admission from 12/04-12/12 d/t acute [...] help her quit. Dr. Sebastian is her line mechanic. Chronic recurrent pancreatitis -- had recent surgery [...] airways disease (HCC) Alcohol dependence in remission ([facility]) 07/10/2015 Alcohol use disorder 08/27/2017 Alcohol-induced pancreatitis Alcoholic hepatitis 05/18/2012 Alcoholic liver disease (HCC) 11/16/2013 Anemia Anxiety with depression Arthritis Asthma Chronic hypoxemic respiratory failure (HCC) COPD (chronic obstructive pulmonary disease) ([facility]) 05/25/2012 DDD (degenerative disc disease), cervical 09/03/2018 [...] Stage 3 severe COPD by GOLD classification ([facility]) 2018 Tobacco use greater than 30 years [...] capsule by mouth at bedtime as needed. rxxyur-fjhzmjiw-kbzjatx (CREON 24) 24,000-76,000 -120,000 unit delayed release [...] ICD10: F17.200 - Cessation encouraged. Pt declined food management aide to help with cessation. Pt has [...] Patient agreeable to treatment plan. Tara Youngblood APRN.COMPANY MARKER [address] [place] [address] documented in this encounterMiddletown Hospital03-24-2025 NoteHNO ID: [id number] Author: TARA YOUNGBLOOD APRN.CNP Service: ? Author Type: Nurse Practitioner Type: Progress Notes Filed: 12/19/2024 15:33 Note Text: Chief Complaint Patient presents with: hospital f/up HPI Gracie Banuelos is a 59 year old female who presents here today for Above Complaints. Gracie is an established patient of Dr. Satnam MD. Concerns today.. Hospital follow-up--- [facility] admission from 12/04-12/12 d/t acute [...] help her quit. Dr. Sebastian is her line mechanic. Chronic recurrent pancreatitis -- had recent surgery [...] airways disease (HCC) Alcohol dependence in remission ([facility]) 07/10/2015 Alcohol use disorder 08/27/2017 Alcohol-induced pancreatitis [...] Stage 3 severe COPD by GOLD classification ([facility]) 2018 Tobacco use greater than 30 years [...] (LOPRESSOR) 25 mg ta (more content not included)...[facility]03-17-2025 Consult note [facility] Medical Records Department [address] [place] [address] Anesthesia Postop Eval II 12/12/24 1751 MR#: [id number] Acct: [id number] Name: GRACIE BANUELOS Rep #:[id number] : 1965 59 From: Jeferson Breaux MD PCP: Dr. Misbah Elkins MD Status:ADM I N Y Race: C Location: [place] [address] 3-1 Anesthesia Postop Eval I Sum Postop Eval Completion status Anesthesia document: Postop Eval 1 completed: Yes Anesthesia Postop Eval I Summary Anesthesia Postop Eval I Summary: Anesthesia Postop Eval I: Assessment Summary Airway patent Yes 12/12/24 13:08 IMAGING [email or web address] Spontaneous unlabored Yes 12/12/24 13:08 IMAGING [email or web address] respirations Mental status Awake,Calm 12/12/24 13:08 IMAGING [email or web address] nausea No 12/12/24 13:08 IMAGING [email or web address] Vomiting No 12/12/24 13:08 IMAGING [email or web address] Anesthesia Postop Eval I: Fluid Summary Crystalloid volume administer 30 12/12/24 13:08 IMAGING AIDE.[email or web address] (ml) Colloids volume administered ( ml) Blood Product volume administered (ml) Total IV fluid infused 30 12/12/24 13:08 IMAGING [email or web address] Anesthesia Postop Eval I: Summary Notes Anesthesia Complication No 12/12/24 13:08 IMAGING [email or web address] Anesthesia Complication Comment: Post-operative progress note Anesthesia: Postop Eval II Evaluation Mental status: Awake and Calm Pain Level: 1 nausea: No Vomiting: No Complications Anesthesia Complication: No 12/12/24 1751 dillon MENENDEZ> Date _ Jeferson Breaux MD Cosigner Signature: Date CC: ~ Signed [facility]03-17-2025 Discharge summary Author Anastacia Bonilla [facility] Note Date/Time December 12, 2024 3:[address] [facility] Medical Records Department [address] [place] [address] Instructions for Home/Discharge Instructions 12/12/24 1547 MR#: [id number] Acct: [id number] Name: GRACIE BANUELOS Rep #:[id number] : 1965 59 From: Anastacia Bonilla MD [...] DO; Dr. Yrn Kahn DO ~ Signed [facility] Work Phone: 1(250) 268-908403-17-2025 Discharge summary Author Anastacia [facility] Note Date/Time December 12, 2024 4:[address] [facility] Medical Records Department [address] [place] [address] Discharge Summary 12/12/24 1554 MR#: [id number] Acct: [id number] Name: GRACIE BANUELOS Rep #:[id number] : 1965 59 From: Anastacia Bonilla MD PCP: Dr. Misbah Elkins MD Status:ADM I N Location: [place] [address] Providers Date of Admission: 12/04/24 Date of Discharge: 12/12/24 Primary Care Physician: Dr. Misbah Elkins MD Consultations 12/05/24 09:19 Consult: Lactation Coordinator / Pulmonary Medicine Routine Consulting Provider: Intensivists/Pulmonary Med Reason for Consult: respiratory failure EMERGENT Consult: No Notified: Yes Date Notified: 12/05/24 Time Notified: 09:19 Method of Notification: Text 12/09/24 17:42 Consult: Gastroenterology Routine Consulting Provider: [facility] Reason for Consult: dysphagia EMERGENT Consult: [...] Self Care Charges/Coding Visit Charges Inpatient E&M: 87342 Disch Hosp >30min 12/12/24 1610 <Electronically signed [...] MD; Dr. Anastacia Bonilla MD ~* Signed [facility] Work Phone: 1(533) 707-754903-17-2025 Discharge summary [facility] Medical Records Department [address] [place] [address] Discharge Summary 12/12/24 1556 MR#: [id number] Acct: [id number] Name: GRACIE BANUELOS Rep #:[id number] : 1965 59 From: Anastacia Bonilla MD PCP: Dr. Misbah Elkins MD Status:ADM I N Location: [place] [address] Providers Date of Admission: 12/04/24 Date of Discharge: 12/12/24 Primary Care Physician: Dr. Misbah Elkins MD Consultations 12/05/24 09:19 Consult: Lactation Coordinator / Pulmonary Medicine Routine Consulting Provider: Intensivists/Pulmonary Med Reason for Consult: respiratory failure EMERGENT Consult: No Notified: Yes Date Notified: 12/05/24 Time Notified: 09:19 Method of Notification: Text 12/09/24 17:42 Consult: Gastroenterology Routine Consulting Provider: [facility] Reason for Consult: dysphagia EMERGENT Consult: [...] Self Care Charges/Coding Visit Charges Inpatient E&M: 47616 Disch Hosp >30min 12/12/24 1610 Cosigner Signature [...] MD; Dr. Anastacia Bonilla MD ~* Signed [facility]03-17-[address] [facility] Medical Records Department [address] [place] [address] Instructions for Home/Discharge Instructions 12/12/24 1547 MR#: [id number] Acct: [id number] Name: GRACIE BANUELOS Rep #:[id number] : 1965 59 From: Anastacia Bonilla MD [...] DO; Dr. Yrn Kahn DO ~ Signed [facility]03-17-2025 [facility] Consult note Author Guevara Jimenez [facility] Note Date/Time December 12, 2024 1:0 8pm [facility] Medical Records Department [address] [place] [address] Anesthesia Postop Eval I 12/12/24 1307 MR#: [id number] Acct: [id number] Name: VINFERNIEGRACIE S Rep #:[id number] : 1965 59 From: Guevara Jimenez CRNA PCP: Dr. Misbah Elkins MD Status:ADM I N Y Race: C Location: [place] [address] 3-1 Anesthesia: Postop Eval I Current Vital [...] CRNA Cosigner Signature: Date CC: ~ Signed [facility] Work Phone: 1(419) 507-376203-17-2025 Progress note Author Marshal Friend [facility] Note Date/Time December 12, 2024 12: 39pm [facility] Medical Records Department [address] [facility] [place] [address] Progress Note 12/12/24 1237 MR#: [id number] Acct: [id number] Name: GRACIE BANUELOS Rep #:[id number] : 1965 59 From: Marshal Segura DO PCP: Dr. Misbah Elkins MD Status:ADM I N Location: [place] [address] Progress Note Patient has been n.p.o. for [...] ASA of 3. Visit Charges Inpatient E&M: 25471 Subs Hosp L2 12/12/24 1239 <Electronically signed by Marshal Segura DO> Marshal Segura DO Cosigner Signature (if applicable): CC: ~ Signed [facility] Work Phone: 1(141) 929-837903-17-2025 Consult note Author Jeferson Breaux [facility] Note Date/Time December 12, 2024 12: 15pm [facility] Medical Records Department [address] [place] [address] Pre-Anesthesia Evaluation 12/12/24 1203 MR#: [id number] Acct: [id number] Name: GRACIE BANUELOS Rep #:[id number] : 1965 59 From: Jeferson Breaux MD PCP: Dr. Misbah Elkins MD Status:ADM I N Y Race: C Location: [place] [address] 3-1 ASA Classification* ASA Classification ASA Classification: [...] possible dilation. Anesthesia History Anesthesia History - outcomes analyst: Anesthesia History - outcomes analyst Hx Hospitalization Yes 08/12/20 11:23 Any Problems [...] sips of water?: Yes PONV PONV - outcomes analyst: PONV - outcomes analyst Female HX of Motion Sickness HX of N/V After Surgery Non-Smoker Duration of Surgery greater than 60 minutes Number of Risk Factors PONV Score Height & Weight Height & Weight: Anesthesia: Height & Weight Height 5 ft 3 in 12/11/24 13:34 Weight: 60.7 kg 12/12/24 05:02 Body Mass Index (BMI) 23.7 12/12/24 05:02 Respiratory Assessment Respiratory Assessment - outcomes analyst: Respiratory Tract Infection Hx - outcomes analyst Hx Respiratory Tract Infection No 06/12/21 02:55 STOP Sleep Apnea STOP Sleep Apnea - outcomes analyst: STOP Sleep Apnea - outcomes analyst Hx Hypertension Yes 12/04/24 20:21 Hx Sleep [...] Tobacco Use History Tobacco Use History - outcomes analyst: Tobacco Use History - outcomes analyst Tobacco Use Cigarettes 01/22/21 20:43 Smoking Status Heavy Smoker (>10/day) 12/06/24 05:11 Hx Tobacco Use Yes 12/04/24 20:21 Years Smoking Packs Smoked per Day Smoking Cessation Date was within the last 15 years Hx Smoking Cessation Date Hx Smoking Cessation No 12/04/24 20:21 Counseling Hematologic Medial History Hematologic Hx - outcomes analyst: 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 12/12/24 6225 <Electronically signed by Jeferson carranza MD> Date _ Jeferson Kancherla MD Cosigner Signature: Date CC: ~ Signed [facility] Work Phone: 1(817) 742-209403-17-2025 Progress note Author Gonzalo Sebastian [facility] Note Date/Time December 12, 2024 11: 29am [facility] Medical Records Department [address] [place] [address] Progress Note - Lactation Coordinator 12/12/24 1000 MR#: [id number] Acct: [id number] Name: GRACIE BANUELOS Rep #:[id number] : 1965 59 From: Gonzalo Sebastian DO PCP: Dr. Misbah Elkins MD Status:ADM I N Location: [place] [address] Assessment & Plan Assessment/Plan (1) COPD with [...] medicationsas indicated. This note was generated with [employer] YES[employer]en dictation software. It may contain incorrectwords, spelling, [...] Affect: anxious Charges/Coding Visit Charges Inpatient E&M: 70458 Subs Hosp L2 12/12/24 1129 <Electronically signed by Gonzalo Sebastian DO> Cosigner Signature (if applicable): CC: ~ Signed [facility] Work Phone: 1(450) 627-100503-17-2025 Consult note [facility] Medical Records Department [address] [place] [address] Anesthesia Postop Eval I 12/12/24 1307 MR#: [id number] Acct: [id number] Name: GRACIE BANUELOS Rep #:[id number] : 1965 59 From: Guevara Jimenez CRNA PCP: Dr. Misbah Elkins MD Status:ADM I N Y Race: C Location: [place] [address] Anesthesia: Postop Eval I Current Vital Signs [...] Eval 1 completed: Yes 12/12/24 1308 y IMAGING AIDE> Date _ Guevara Jimenez CRNA Cosigner Signature: Date CC: ~ Signed [facility]03-17-2025 Procedure note [facility] Medical Records Department [address] [place] [address] EGD Report MR#: [id number] Acct: [id number] Name: GRACIE BANUELOS Rep #:[id number] : 1965 59 From: Marshal Segura DO [...] present medications. Procedure Code(s): --- Professional --- 33339, Esophagogastroduodenoscopy, flexible, transoral; with insertion of guide wire followed by passage of dilator(s) through esophagus over guide wire CPT copyright 202 [employer]. All rights reserved. The codes documented in this report are preliminary and upon barnworker groom review may be revised to meet current compliance requirements. Marshal Segura DO 12/12/2024 1:07:14 PM This report has been signed electronically. Number of Addenda: 0 Note Initiated On: 12/12/2024 12:40 PM 12/12/24 1307 Date _ Marshal Legerigner Signature: Date (if indicated) CC: Dr. Misbah Elkins MD; Marshal Segura DO ~ Date Dictated: 12/12/24 1240 Date Transcribed: Simulation Educator: RF Signed [facility]03-17-2025 Procedure note [facility] Medical Records Department [address] [place] [address] Operative Report - CC Letter MR#: [id number] Acct: [id number] Name: GRACIE BANUELOS Rep #:[id number] : 1965 59 From: Marshal Segura DO PCP: Dr. Misbah Elkins MD Status:ADM I N 12/12/2024 Misbah Elkins [address] [place] [id number] Re : Upper GI endoscopy procedure for [...] ~ Date Dictated: 12/12/24 1240 Date Transcribed: Simulation Educator: RF Signed [facility]03-17-2025 Progress note [facility] Medical Records Department [address] [place] [address] Progress Note 12/12/24 1237 MR#: [id number] Acct: [id number] Name: GRACIE BANUELOS Rep #:[id number] : 1965 59 From: Marshal Segura DO PCP: Dr. Misbah Elkins MD Status:ADM I N Location: [place] [address] Progress Note Patient has been n.p.o. for [...] ASA of 3. Visit Charges Inpatient E&M: 12241 Subs Hosp L2 12/12/24 1239 Marshal Martinez Signature (if applicable): CC: ~ Signed [facility]03-17-2025 Consult note [facility] Medical Records Department [address] [place] [address] Pre-Anesthesia Evaluation 12/12/24 1203 MR#: [id number] Acct: [id number] Name: GRACIE BANUELOS Rep #:[id number] : 1965 59 From: Jeferson Breaux MD PCP: Dr. Mibsah Elkins MD Status:ADM I N Y Race: C Location: [place] [address] 3-1 ASA Classification* ASA Classification ASA Classification: [...] possible dilation. Anesthesia History Anesthesia History - outcomes analyst: Anesthesia History - outcomes analyst Hx Hospitalization Yes 08/12/20 11:23 Any Problems [...] sips of water?: Yes PONV PONV - outcomes analyst: PONV - outcomes analyst Female HX of Motion Sickness HX of N/V After Surgery Non-Smoker Duration of Surgery greater than 60 minutes Number of Risk Factors PONV Score Height & Weight Height & Weight: Anesthesia: Height & Weight Height 5 ft 3 in 12/11/24 13:34 Weight: 60.7 kg 12/12/24 05:02 Body Mass Index (BMI) 23.7 12/12/24 05:02 Respiratory Assessment Respiratory Assessment - outcomes analyst: Respiratory Tract Infection Hx - outcomes analyst Hx Respiratory Tract Infection No 06/12/21 02:55 STOP Sleep Apnea STOP Sleep Apnea - outcomes analyst: STOP Sleep Apnea - outcomes analyst Hx Hypertension Yes 12/04/24 20:21 Hx Sleep [...] Tobacco Use History Tobacco Use History - outcomes analyst: Tobacco Use History - outcomes analyst Tobacco Use Cigarettes 01/22/21 20:43 Smoking Status Heavy Smoker (>10/day) 12/06/24 05:11 Hx Tobacco Use Yes 12/04/24 20:21 Years Smoking Packs Smoked per Day Smoking Cessation Date was within the last 15 years Hx Smoking Cessation Date Hx Smoking Cessation No 12/04/24 20:21 Counseling Hematologic Medial History Hematologic Hx - outcomes analyst: 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 Hx of Blood Transfusion No 12/04/24 20:21 [...] confused, unrespo /Reproduction History /Reproductive History - outcomes analyst: /Reproductive Hx- outcomes analyst Hx Now Gestational Age (in weeks): EDC: [...] Tablet (1,000 Units) PO 50 mcg DAILY DACAI Administration Enoxaparin Sodium 40 mg 12/05/24 10:00 [...] Allergy Other Verified 12/04/24 15:55 hydrocodone (From [place]) AdvReac Itching Verified 12/04/24 15:55 Family History [...] MD Cosigner Signature: Date CC: ~ Signed [facility]03-17-2025 Progress note [facility] Medical Records Department [address] [place] [address] Progress Note - Lactation Coordinator 12/12/24 1000 MR#: [id number] Acct: [id number] Name: GRACIE BANUELOS Rep #:[id number] : 1965 59 From: Gonzalo Sebastian DO PCP: Dr. Misbah Elkins MD Status:ADM I N Location: [place] [address] Assessment & Plan Assessment/Plan (1) COPD with [...] medicationsas indicated. This note was generated with [employer] dictation software. It may contain incorrectwords, spelling, [...] 09:24 12/12/24 09:24 12/12/24 09:24 FiO2 56 03/12/25 08:56 Oxygen Flow Rate (L/min) 3 Oxygen [...] Affect: anxious Charges/Coding Visit Charges Inpatient E&M: 20454 [facility] Hosp 12/12/24 1129 Cosigner Signature (if applicable): CC: ~ Signed [facility]03-16-2025 Progress note Author Anastacia [facility] Note Date/Time December 11, 2024 11: 50[facility] Medical Records Department [address] [place] [address] Progress Note 12/11/24 1134 MR#: [id number] Acct: [id number] Name: GRACIE BANUELOS Rep #:[id number] : 1965 59 From: Anastacia Bonilla MD PCP: Dr. Misbah Elkins MD Status:ADM I N Location: [place] [address] Subjective Subjective Patient seen and examined. She [...] gastroenterology also consulted for evaluation. Per Dr Colton today, for EGD tomorrow * #Hypertension: On amlodipine and hydrochlorothiazide as well as lisinopril #Chronic anxiety: On Ativan as needed DVT prophylaxis: lovenox Charges/Coding Visit Charges Inpatient E&M: 93830 Subs Hosp L2 12/11/24 1150 <Electronically signed by Anastacia Bonilla MD> Anastacia Bonilla MD Cosigner Signature (if applicable): CC: ~ Signed [facility] Work Phone: 1([phone]) 766-341003-16-[address] [facility] Medical Records Department [address] [place] [address] Progress Note 12/11/24 1134 MR#: [id number] Acct: [id number] Name: GRACIE BANUELOS Rep #:[id number] : 1965 59 From: Anastacia Bonilla MD PCP: Dr. Misbah Elkins MD Status:ADM I N Location: [place] [address] Subjective Subjective Patient seen and examined. She [...] prophylaxis: lovenox Charges/Coding Visit Charges Inpatient E&M: 90405 Subs Hosp L2 12/11/24 1150 Anastacia Bonilla MD Cosigner Signature (if applicable): CC: ~ Signed [facility]03-15-2025 Progress note Author Anastacia [facility] Note Date/Time December 10, 2024 12: 56pm [facility] Medical Records Department [address] [place] [address] Progress Note 12/10/24 1251 MR#: [id number] Acct: [id number] Name: GRACIE BANUELOS Rep #:[id number] : 1965 59 From: Anastacia Bonilla MD PCP: Dr. Misbah Elkins MD Status:ADM I N Location: [place] [address] Subjective Subjective Patient seen and examined. She [...] prophylaxis: lovenox Charges/Coding Visit Charges Inpatient E&M: 79396 Subs Hosp L2 12/10/24 1256 <Electronically signed by Anastacia Bonilla MD> Anastacia Bonilla MD Cosigner Signature (if applicable): CC: ~ Signed [facility] Work Phone: [phone] 538-102403-15-[address] [facility] Medical Records Department [address] [place] [address] Progress Note 12/10/24 1251 MR#: [id number] Acct: [id number] Name: VINGRACIE S Rep #:[id number] : 1965 59 From: Anastacia Bonilla MD PCP: Dr. Misbah Elkins MD Status:ADM I N Location: [place] [address] Subjective Subjective Patient seen and examined. She [...] % (Manual) 1L, Diff Path Review May , Platelet Estimate A, Plt Morphology Comment G, [...] prophylaxis: lovenox Charges/Coding Visit Charges Inpatient E&M: 49851 Subs Hosp L2 12/10/24 1256 Anastacia Bonilla MD Cosigner Signature (if applicable): CC: ~ Signed [facility]03-14-2025 Progress note Author Anastacia [facility] Note Date/Time December 09, 2024 4:[address] [facility] Medical Records Department [address] [place] [address] Progress Note 12/09/24 1351 MR#: [id number] Acct: [id number] Name: GRACIE BANUELOS Rep #:[id number] : 1965 59 From: Anastacia Bonilla MD PCP: Dr. Misbah Elkins MD Status:ADM I N Location: [place] [address] Subjective Subjective Patient seen and examined. She [...] Cannula 4 12/09/24 10:31 12/09/24 10:31 12/09/24 10:12/09/24 10:31 12/09/24 10:31 12/09/24 10:12/09/24 10:31 FiO2 56 12/07/24 08:56 Oxygen Flow [...] (MDRD) Non-Af 78, BUN/Creatinine Ratio 40.8 H, [id number] H, Calcium 9.8 Micro: Microbiology 12/07/24 14:40 [...] prophylaxis: lovenox Charges/Coding Visit Charges Inpatient E&M: 70632 Subs Hosp L2 12/09/24 1633 <Electronically signed by Anastacia Bonilla MD> Anastacia Bonilla MD Cosigner Signature (if applicable): CC: ~ Signed [facility] Work Phone: 1([phone] 313-637703-14-[address] [facility] Medical Records Department [address] [place] [address] Progress Note 12/09/24 1351 MR#: [id number] Acct: [id number] Name: GRACIE BANUELOS Rep #:[id number] : 1965 59 From: Anastacia Bonilla MD PCP: Dr. Misbah Elkins MD Status:ADM I N Location: [place] [address] Subjective Subjective Patient seen and examined. She [...] Monocytes % (Manual) 6, Diff Path Review January foll, Platelet Estimate ADEQUATE, RBC Morphology NORM C+C, Sodium 135, Potassium 5.0, Chloride 96 L, Carbon Dioxide 27.3,Anion Gap 13, BUN 35 H, Creatinine 0.85, Estim Creat Clear Calc 57.49, Est GFR (MDRD) Non-Af 78, BUN/Creatinine Ratio 40.8 H, Brqdqih344 H, Calcium 9.8 Micro: Microbiology 12/07/24 14:40 [...] prophylaxis: lovenox Charges/Coding Visit Charges Inpatient E&M: 59135 Subs Hosp L2 12/09/24 1633 Anastacia Bonilla MD Cosigner Signature (if applicable): CC: ~ Signed [facility]03-14-2025 Progress note Author Gonzalo Sebastian [facility] Note Date/Time December 09, 2024 11: [address] [place] [address] System Medical Records Department [address] [place] [address] Progress Note - Lactation Coordinator 12/09/24 0809 MR#: [id number] Acct: [id number] Name: GRACIE BANUELOS Rep #:[id number] : 1965 59 From: Gonzalo Sebastian DO PCP: Dr. Misbah Elkins MD Status:ADM I N Location: [place] [address] Assessment & Plan Assessment/Plan (1) COPD with [...] medicationsas indicated. This note was generated with [employer] dictation software. It may contain incorrectwords, spelling, [...] Affect: anxious Charges/Coding Visit Charges Inpatient E&M: 33164 Subs Hosp L2 12/09/24 1116 <Electronically signed by Gonzalo Sebastian DO> Cosigner Signature (if applicable): CC: ~ Signed [facility] Work Phone: [phone] 452-417703-14-2025 Progress note [facility] Medical Records Department [address] [place] [address] Progress Note - Lactation Coordinator 12/09/24 0809 MR#: [id number] Acct: [id number] Name: GRACIE BANUELOS Rep #:[id number] : 1965 59 From: Gonzalo Sebastian DO PCP: Dr. Misbah Elkins MD Status:ADM I N Location: [place] [address] Assessment & Plan Assessment/Plan (1) COPD with [...] medicationsas indicated. This note was generated with [employer] dictation software. It may contain incorrectwords, spelling, [...] dysfunction. Trivial mitral valve insufficiency. Ordering Physician: Gnozalo Sebastian Referring Physician: MISBAH ELKINS Performed By: [...] Affect: anxious Charges/Coding Visit Charges Inpatient E&M: 53957 Subs Hosp L2 12/09/24 1116 Cosigner Signature (if applicable): CC: ~ Signed [facility]03-13-2025 Progress note Author Yrn Kahn [facility] Note Date/Time December 08, 2024 4:[address] [facility] Medical Records Department [address] [place] [address] Progress Note - Hospitalist 12/08/24 1620 MR#: [id number] Acct: [id number] Name: GRACIE BANUELOS Rep #:[id number] : 1965 59 From: Yrn Kahn DO PCP: Dr. Misbah Elkins MD Status:ADM I N Location: [place] [address] Reason for Visit Reason for Visit: Diagnoses [...] 35 minutes Charges/Coding Visit Charges Inpatient E&M: 49027 Subs Hosp L2 12/08/24 1623 <Electronically signed by Yrn Kahn DO> Cosigner Signature (if applicable): CC: ~ Signed [facility] Work Phone: 1([phone]) 579-404803-13-2025 Progress note [facility] Medical Records Department [address] [place] [address] Progress Note - Hospitalist 12/08/24 1620 MR#: [id number] Acct: [id number] Name: GRACIE BANUELOS Rep #:[id number] : 1965 59 From: Yrn Kahn DO PCP: Dr. Misbah Elkins MD Status:ADM I N Location: [place] [address] Reason for Visit Reason for Visit: Diagnoses [...] 35 minutes Charges/Coding Visit Charges Inpatient E&M: 09052 Subs Hosp L2 12/08/24 1623 Cosigner Signature (if applicable): CC: ~ Signed [facility]03-13-2025 Procedure note [facility] Speech Pathology [address] [place] [address] Modified Barium Swallow Study MR#: [id number] Acct: [id number] Name: GRACIE BANUELOS Rep #:[id number] : 1965 59 From: Maksim Ramos, [facility]-CULINARY CHEF Modified Barium Swallow Patient Information Study Date: [...] History: Pt presented to the ED at [facility] on 12/04/2024 with the chief [...] Result: 3= enters airways/above vocal folds/not ejected [place] Thick Liquid via small single sip: cup: [...] Status Active ST Patient: Active Contact Information [facility] Speech Therapy:: Maksim Up M.A. CCC-CULINARY CHEF? Speech-Language Pathologist?? [facility] [address] [place] [address]? [email or web address]?? [phone] 12/08/24 1525 CARLOS Duenas-CULINARY CHEF> Date/Time Maksim Up M.A. CCC-CULINARY CHEF Co-Signature Required for all Medicare patients Date/Time Co-Signature CC: ~ [facility]03-13-2025 Progress note Author Gonzalo Sebastian [facility] Note Date/Time December 08, 2024 10: 27am [facility] Medical Records Department [address] [place] [address] Progress Note - Lactation Coordinator 12/08/24 0944 MR#: [id number] Acct: [id number] Name: GRACIE BANUELOS Rep #:[id number] : 1965 59 From: Gonzalo Sebastian DO PCP: Dr. Misbah Elkins MD Status:ADM I N Location: [place] [id number]- 1 Assessment & Plan Assessment/Plan (1) COPD with [...] medicationsas indicated. This note was generated with [employer] dictation software. It may contain incorrectwords, spelling, [...] Affect: anxious Charges/Coding Visit Charges Inpatient E&M: 36566 Subs Hosp L2 12/08/24 1027 <Electronically signed by Gonzalo Sebastian DO> Cosigner Signature (if applicable): CC: ~ Signed [facility] Work Phone: [phone] 105-742403-13-[address] [facility] Medical Records Department [address] [place] [address] Progress Note - Lactation Coordinator 12/08/24 0944 MR#: [id number] Acct: [id number] Name: GRACIE BANUELOS Rep #:[id number] : 1965 59 From: Gonzalo Sebastian DO PCP: Dr. Misbah Elkins MD Status:ADM I N Location: [place] [address] Assessment & Plan Assessment/Plan (1) COPD with [...] medicationsas indicated. This note was generated with Semblee_ation software. It may contain incorrectwords, spelling, and [...] Affect: anxious Charges/Coding Visit Charges Inpatient E&M: 33900 Subs Hosp L2 12/08/24 1027 Cosigner Signature (if applicable): CC: ~ Signed [facility]03-12-2025 Progress note Author Yrn Kahn [facility] Note Date/Time December 07, 2024 5:[address] [facility] Medical Records Department [address] [place] [address] Progress Note - Hospitalist 12/07/24 1746 MR#: [id number] Acct: [id number] Name: GRACIE BANUELOS Rep #:[id number] : 1965 59 From: Yrn Kahn DO PCP: Dr. Misbah Elkins MD Status:ADM I N Location: [place] [address] Reason for Visit Reason for Visit: Diagnoses [...] 35 minutes Charges/Coding Visit Charges Inpatient E&M: 43384 Subs Hosp L2 12/07/24 1887 <Electronically signed by Yrn Kahn DO> Cosigner Signature (if applicable): CC: ~ Signed [facility] Work Phone: 1([phone]) 781-171003-12-2025 Progress note [facility] Medical Records Department [address] [place] [address] Progress Note - Hospitalist 12/07/24 1746 MR#: [id number] Acct: [id number] Name: GRACIE BANUELOS Rep #:[id number] : 1965 59 From: Yrn Kahn DO PCP: Dr. Misbah Elkins MD Status:ADM I N Location: [place] [address] Reason for Visit Reason for Visit: Diagnoses [...] 35 minutes Charges/Coding Visit Charges Inpatient E&M: 13185 Subs Hosp L2 12/07/24 3237 Cosigner Signature (if applicable): CC: ~ Signed [facility]03-12-2025 Progress note Author Gonzalo Sebastian [facility] Note Date/Time December 07, 2024 12: 23pm [facility] Medical Records Department [address] [place] [address] Progress Note - Lactation Coordinator 12/07/24 0959 MR#: [id number] Acct: [id number] Name: GRACIE BANUELOS Rep #:[id number] : 1965 59 From: Gonzalo Sebastian DO PCP: Dr. Misbah Elkins MD Status:ADM I N Location: [place] [address] Assessment & Plan Assessment/Plan (1) COPD with [...] medicationsas indicated. This note was generated with Sem[employer]_ation software. It may contain incorrectwords, spelling, and [...] (Auto) 88.4 H, Lymph % (Auto) 4.5L, [place] % (Auto) 6.0, Eos % (Auto) 0.0, Baso % (Auto) 0.2, Absolute Neuts (auto)23.2 H, Absolute Lymphs (auto) 1.17, Nucleated RBC % 0, Diff Path Review May , Platelet Estimate A, Sodium 134, Potassium 4.9, [...] Affect: anxious Charges/Coding Visit Charges Inpatient E&M: 50201 Subs Hosp L2 12/07/24 1223 <Electronically signed by Gonzalo Sebastian DO> Cosigner Signature (if applicable): CC: ~ Signed [facility] Work Phone: [phone] 301-366003-12-[address] [facility] Medical Records Department [address] [place] [address] Progress Note - Lactation Coordinator 12/07/24 0959 MR#: [id number] Acct: [id number] Name: GRACIE BANUELOS Rep #:[id number] : 1965 59 From: Gonzalo Sebastian DO PCP: Dr. Misbah Elkins MD Status:ADM I N Location: [place] [address] Assessment & Plan Assessment/Plan (1) COPD with [...] medicationsas indicated. This note was generated with Make [employer] dictation software. It may contain incorrectwords, spelling, [...] (Auto) 88.4 H, Lymph % (Auto) 4.5L, [place] % (Auto) 6.0, Eos % (Auto) 0.0, [...] Affect: anxious Charges/Coding Visit Charges Inpatient E&M: 83541 Subs Hosp L2 12/07/24 1223 Cosigner Signature (if applicable): CC: ~ Signed [facility]03-11-2025 Progress note Author Yrn Kahn [facility] Note Date/Time December 06, 2024 8:[address] [facility] Medical Records Department [address] [place] [address] Progress Note - Hospitalist 12/06/242023 MR#: [id number] Acct: [id number] Name: GRACIE BANUELOS Rep #:[id number] : 1965 59 From: Yrn Kahn DO PCP: Dr. Misbah Elkins MD Status:ADM I N Location: [place] [address] Reason for Visit Reason for Visit: Diagnoses [...] (Auto) 88.4 H, Lymph % (Auto) 4.5L, [place] % (Auto) 6.0, Eos % (Auto) 0.0, [...] 35 minutes Charges/Coding Visit Charges Inpatient E&M: 17444 Subs Hosp L2 12/06/242025 <Electronically signed by Yrn Tereletsky DO> Cosigner Signature (if applicable): CC: ~ Signed [facility] Work Phone: 1([phone] 881-199303-11-2025 Progress note Author Yrn [facility] Note Date/Time December 06, 2024 8:2 4pm [facility] Medical Records Department [address] [place] [address] Progress Note - Hospitalist 12/05/241943 MR#: [id number] Acct: [id number] Name: GRACIE BANUELOS Rep #:[id number] : 1965 59 From: Yrn Kahn DO PCP: Dr. Misbah Elkins MD Status:ADM I N Location: [place] [address] Reason for Visit Reason for Visit: Diagnoses [...] 89.0 H, Lymph % (Auto) 5.1 L, [place] % (Auto) 4.0, Eos % (Auto) 0.1, [...] 50 minutes Charges/Coding Visit Charges Inpatient E&M: 39823 Subs Hosp L3 12/06/242023 <Electronically signed by Yrn Kahn DO> Cosigner Signature (if applicable): CC: ~ Signed [facility] Work Phone: [phone] [facility] Medical Records Department [address] [place] [address] Progress Note - Hospitalist 12/06/242023 MR#: [id number] Acct: [id number] Name: GRACIE BANUELOS Rep #:[id number] : 1965 59 From: Yrn Kahn DO PCP: Dr. Misbah Elkins MD Status:ADM I N Location: [place] [address] Reason for Visit Reason for Visit: Diagnoses [...] (Auto) 88.4 H, Lymph % (Auto) 4.5L, [place] % (Auto) 6.0, Eos % (Auto) 0.0, [...] 35 minutes Charges/Coding Visit Charges Inpatient E&M: 62568 Subs Hosp L2 12/06/242025 Cosigner Signature (if applicable): CC: ~ Signed [facility]03-11-[address] [facility] Medical Records Department [address] [place] [address] Progress Note - Hospitalist 12/05/241943 MR#: [id number] Acct: [id number] Name: GRACIE BANUELOS Rep #:[id number] : 1965 59 From: Yrn Kahn DO PCP: Dr. Misbah Elkins MD Status:ADM I N Location: [place] [address] Reason for Visit Reason for Visit: Diagnoses [...] 89.0 H, Lymph % (Auto) 5.1 L, [place] % (Auto) 4.0, Eos % (Auto) 0.1, [...] 50 minutes Charges/Coding Visit Charges Inpatient E&M: 18173 Subs Hosp L3 12/06/242023 Cosigner Signature (if applicable): CC: ~ Signed [facility]03-11-2025 Progress note Author Gonzalo Sebastian [facility] Note Date/Time December 06, 2024 11: 38am [facility] Medical Records Department [address] [place] [address] Progress Note - Lactation Coordinator 12/06/24 1134 MR#: [id number] Acct: [id number] Name: GRACIE BANUELOS Rep #:[id number] : 1965 59 From: Gonzalo Sebastian DO PCP: Dr. Misbah Elkins MD Status:ADM I N Location: [place] [address] Assessment & Plan Assessment/Plan (1) COPD with [...] medicationsas indicated. This note was generated with Make YES! Happen dictation software. It may contain incorrectwords, spelling, [...] (Auto) 88.4 H, Lymph % (Auto) 4.5L, [place] % (Auto) 6.0, Eos % (Auto) 0.0, [...] Affect: anxious Charges/Coding Visit Charges Inpatient E&M: 54249 Subs Hosp L2 12/06/24 1138 <Electronically signed by Gonzalo Sebastian DO> Cosigner Signature (if applicable): CC: ~ Signed [facility] Work Phone: [phone] 306-645103-11-[address] [facility] Medical Records Department [address] [place] [address] Progress Note - Lactation Coordinator 12/06/24 1139 MR#: [id number] Acct: [id number] Name: GRACIE BANUELOS Rep #:[id number] : 1965 59 From: Gonzalo Sebastian DO PCP: Dr. Misbah Elkins MD Status:ADM I N Location: [place] [address] Assessment & Plan Assessment/Plan (1) COPD with [...] medicationsas indicated. This note was generated with Make YES! Happen dictation software. It may contain incorrectwords, spelling, [...] (Auto) 88.4 H, Lymph % (Auto) 4.5L, [place] % (Auto) 6.0, Eos % (Auto) 0.0, [...] Affect: anxious Charges/Coding Visit Charges Inpatient E&M: 17003 Subs Hosp L2 12/06/24 1138 Cosigner Signature (if applicable): CC: ~ Signed [facility]03-10-2025 Consult note Author Gonzalo Sebastian [facility] Note Date/Time December 05, 2024 1:[address] [facility] Medical Records Department [address] [place] [address] Consultation - Lactation Coordinator 12/05/24 1314 MR#: [id number] Acct: [id number] Name: GRACIE BANUELOS Rep #:[id number] : 1965 59 From: Gonzalo Sebastian DO PCP: Dr. Misbah Elkins MD Status:ADM I N Location: [place] [address] Assessment & Plan Assessment/Plan (1) COPD with [...] should be noted that the patient had [facility] hospital admission in October 2022 in the setting of a panic attack with generalized anxiety disorder leading to acute decompensation in her respiratory status. 2. Chronic tobacco dependency/bipolar disorder/depression/anxiety/chronic pancreatitis Complicates care, management, recovery and prognosis. Continue home medicationsas indicated. This note was generated with Semblee_ation software. It may contain incorrectwords, spelling, and [...] felt as if she was being suffocated. [facility] Medical History Pancreatic stones HLD (hyperlipidemia) History [...] Allergy Other Verified 12/04/24 15:55 hydrocodone (From [place]) AdvReac Itching Verified 12/04/24 15:55 Family History [...] 80.5 H, Lymph % (Auto) 6.8 L, [place] % (Auto) 10.4 H, Eos % (Auto) [...] 89.0 H, Lymph % (Auto) 5.1 L, [place] % (Auto) 4.0, Eos % (Auto) 0.1, [...] Location: [facility] Charges/Coding Visit Charges Inpatient E&M: 50274 Init Hosp L3 12/05/24 1324 <Electronically signed by Gonzalo Sebastian DO> Cosigner Signature (if applicable): CC: Dr. Misbah Elkins MD~ Signed [facility] Work Phone: [phone]) 104-418403-10-2025 Consult note [facility] Medical Records Department [address] [place] [address] Consultation - Lactation Coordinator 12/05/24 1314 MR#: [id number] Acct: [id number] Name: GRACIE BANUELOS Rep #:[id number] : 1965 59 From: Gonzalo Sebastian DO PCP: Dr. Misbah Elkins MD Status:ADM I N Location: [place] [address] Assessment & Plan Assessment/Plan (1) COPD with [...] should be noted that the [facility] in the setting of a panic attack with generalized anxiety disorder leading to acute decompensation in her respiratory status. 2. Chronic tobacco dependency/bipolar disorder/depression/anxiety/chronic pancreatitis Complicates care, management, recovery and prognosis. Continue home medicationsas indicated. This note was generated with Semblee_ation software. It may contain incorrectwords, spelling, and [...] felt as if she was being suffocated. [facility] Medical History Pancreatic stones HLD (hyperlipidemia) History [...] Allergy Other Verified 12/04/24 15:55 hydrocodone (From [place]) AdvReac Itching Verified 12/04/24 15:55 Family History [...] 80.5 H, Lymph % (Auto) 6.8 L, [place] % (Auto) 10.4 H, Eos % (Auto) [...] 89.0 H, Lymph % (Auto) 5.1 L, [place] % (Auto) 4.0, Eos % (Auto) 0.1, [...] Location: [facility] Charges/Coding Visit Charges Inpatient E&M: 80394 Init Hosp L3 12/05/24 1324 Cosigner Signature (if applicable): CC: Dr. Misbah Elkins MD~ Signed [facility]03-10-2025 Telephone encounter Note* Telephone Encounter - Juan Senior APRN.COMPANY MARKER - 12/05/2024 10:49 AM EDT Called to follow up with patient after EUS on 12/01. No answer, left voicemail with call back number. [facility] Work Phone: [phone] Miscellaneous Notes* Telephone Encounter - Juan Senior APRN.CNP - 12/05/2024 10:49 AM EDT Called to follow up with patient after EUS on 12/01. No answer, left voicemail with call back number. documented in [facility] History and physical note Author Aleta Aguayo [facility] Note Date/Time December 04, 2024 9:09 pm [facility] Medical Records Department [address] [place] [address] H&P Exam - Hospitalist 12/04/24 1804 MR#: [id number] Acct: [id number] Name: GRACIE BANUELOS Rep #:[id number] : 1965 59 From: Aleta Aguayo DO PCP: Dr. Misbah Elkins MD Status:ADM I N Location: [place] [address] HPI - General General Date of Admission: 12/04/24 Date of Service: 12/04/24 Chief Complaint: Shortness of Breath HPI Narrative GRACIE BANUELOS, is a 59 F who presented to the ED at [facility] on 12/04/2024 with the chief complaint of SOB. Pt has a h/o chronic pancreatitis and had a pancreatic block done at [facility] Thu of last week as a [...] waiting abdominal pain despite procedure done at [facility] and has follow-up with them upcoming. [...] emergency department request for admission was made. [facility] Medical History Pancreatic stones HLD (hyperlipidemia) History [...] Allergy Other Verified 12/04/24 15:55 hydrocodone (From [place]) AdvReac Itching Verified 12/04/24 15:55 Family History [...] 80.5 H, Lymph % (Auto) 6.8 L, [place] % (Auto) 10.4 H, Eos % (Auto) [...] of admission Charges/Coding Visit Charges Inpatient E&M: 32254 Init Hosp L2 12/04/248 <Electronically signed by Aleta Aguayo DO> Cosigner Signature (if applicable): CC: Dr. Misbah Elkins MD; Dr. Aleta Aguayo DO~ Signed [facility] Work Phone: [phone]) 974-166203-09-2025 History and physical note [facility] Medical Records Department [address] [place] [address] H&P Exam - Hospitalist 12/04/24 1804 MR#: [id number] Acct: [id number] Name: GRACIE BANUELOS Rep #:[id number] : 1965 59 From: lAeta Aguayo DO PCP: Dr. Misbah Elkins MD Status:ADM I N Location: [place] [address] HPI - General General Date of Admission: 12/04/24 Date of Service: 12/04/24 Chief Complaint: Shortness of Breath HPI Narrative GRACIE BANUELOS, is a 59 F who presented to the ED at [facility] on 12/04/2024 with the chief complaint of SOB.Pt has a h/o chronic pancreatitis and had a pancreatic block done at [facility] Thu of last week as a [...] still waiting abdominal pain despiteprocedure done at [facility] and has follow-up with them upcoming. [...] emergency department request for admission was made. [facility] Medical History Pancreatic stones HLD (hyperlipidemia) History [...] Allergy Other Verified 12/04/24 15:55 hydrocodone (From [place]) AdvReac Itching Verified 12/04/24 15:55 Family History [...] 80.5 H, Lymph % (Auto) 6.8 L, [place] % (Auto) 10.4 H, Eos % (Auto) [...] follow-up after discharge Chronic pancreatitis -Follows at [facility] -Seeing pain management -Recommend outpatient follow-up as [...] of admission Charges/Coding Visit Charges Inpatient E&M: 34032 Init Hosp L2 12/04/246 Cosigner Signature (if applicable): CC: Dr. Misbah Elkins MD; Dr. Aleta Aguayo, DO~ Signed [facility]03-09-2025 Discharge summary Author Franco Inman [facility] Note Date/Time December 04, 2024 6:[address] [facility] Medical Records Department [address] [place] [address] Emergency Department Summary 12/04/24 MR#: [id number] Acct: [id number] Name: GRACIE BANUELOS Rep #:[id number] : 1965 59 From: Franco Inman MD PCP: Dr. Misbah Elkins MD Status:ADM I N Location: [place] [address] HPI History of Present Illness Chief Complaint: [...] had a pancreatic block done at the [facility] was discharged the same day. She [...] Allergy Other Verified 12/04/24 15:55 hydrocodone (From [place]) AdvReac Itching Verified 12/04/24 15:55 Family History [...] Back nontender. Moving all 4 extremities. Normal supervisor cartography strength. Normal dorsi plantarflexion. Calves are nontender [...] 80.5 H Lymph % (Auto) 6.8 L [place] % (Auto) 10.4 H Eos % (Auto) [...] No acute airspace abnormality. Emphysema. Reading Location: [facility] Chest x-ray, 2 views, AP and lateral, [...] rate of 121. No acute signs of [place] or ischemia. No dysrhythmia. Discharge Plan Dx/Rx/DC Orders Clinical Impression: Viral URI, COPD exacerbation, Hypoxia, Chronic pancreatitis Disposition Disposition: Acute Care Hospital [facility] What to do if you have Problems For any increased pain, shortness of breath, bleeding, nausea or vomiting, chestpain, or any unexpected problems, contact your Primary Care Provider. Call [facility] ([phone]) or report to the closest Emergency Room. Call 911 if necessary. 12/04/241845 <Electronically signed by Franco Inman MD> Cosigner Signature (if applicable): CC: Dr. Misbah Elkins MD ~ Signed [facility] Work Phone: [phone] Evaluation note* Diagnosis Onset Date Resolution Status Admit Date Acute hypoxic respiratory failure acute December 04, 2024 6:03pm Pulmonary nodule acute November 6:03pm Stenosis of left subclavian artery acute December 04, 2024 6:03pm Chronic pancreatitis chronic [facility] 2024 6:03pm COPD with acute exacerbation chronic December 04, 2024 6:03pm [facility] Work Phone: [phone]) [phone] Evaluation note* Diagnosis Onset Date Resolution Status [...] 23, 2024 9:59am Anxiety and depression chronic [facility] 2024 9:59am Asthma chronic December 23 9:59am Chronic pancreatitis chronic [facility] 2024 9:59am Chronic respiratory failure with hypoxia chronic December 23, 2024 9:59am COPD (chronic obstructive pulmonary disease) chronic December 23, 025 9:59am Smoking greater than 30 pack years chronic December 23, 2024 9:59am [facility] Work Phone: [phone] Evaluation note* Diagnosis Onset Date Resolution Status [...] 2024 9:59am Anxiety and depression chronic [facility] 2024 9:59am Asthma chronic December 23 9:59am [...] years chronic February 08, 2025 1 :07pm [facility] Work Phone: [phone] Evaluation note* Diagnosis Onset Date Resolution Status [...] 2024 9:59am Anxiety and depression chronic [facility] 2024 9:59am Asthma chronic December 23 9:59am [...] pack years chronic March 13, 2025 11:28pm [facility] Work Phone: [phone]) 248-624903-09-2025 Evaluation note* Diagnosis Onset Date Resolution Status [...] 2024 9:59am Anxiety and depression chronic [facility] 2024 9:59am Asthma chronic December 23 9:59am Chronic pancreatitis chronic [facility] , 2025 9:59am Chronic respiratory failure with hypoxia chronic [...] pack years chronic March 13, 2025 11:28pm [facility] Work Phone: [phone] 157-275503-09-2025 Radiology Diagnostic study note [facility] Imaging Services [address] [place] [address] CTA Chest W/WO Contrast MR#: [id number] Acct: [id number] Name: GRACIE BANUELOS Rep #: [id number] : 1965 F 59 From: Jay Juarez DO PCP: Dr. Misbah Elkins MD Status: ADM I N Study:CTA Chest W/WO Contrast Date of Exam: 12/04/24 Exam# [id number] Ordering Dr: Kaitlin Aguayo DO PROCEDURE: CTA [...] Elkins MD; Dr. Aleta Aguayo DO ~ Simulation Educator: Signed [facility]03-09-2025 Discharge summary [facility] Medical Records Department [address] [place] [address] Emergency Department Summary 12/04/24 MR#: [id number] Acct: [id number] Name: GRACIE BANUELOS Rep #:[id number] : 1965 59 From: Franco Inman MD PCP: Dr. Misbah Elkins MD Status:ADM I N Location: [place] [address] HPI History of Present Illness Chief Complaint: [...] had a pancreatic block done at the [facility] was discharged the same day. Sheis [...] Allergy Other Verified 12/04/24 15:55 hydrocodone (From [place]) AdvReac Itching Verified 12/04/24 15:55 Family History [...] Back nontender. Moving all 4 extremities. Normal supervisor cartography strength. Normal dorsi plantarflexion. Calves are nontender [...] 80.5 H Lymph % (Auto) 6.8 L [place] % (Auto) 10.4 H Eos % (Auto) [...] rate of 121. No acute signs of [place] or ischemia. No dysrhythmia. Discharge Plan Dx/Rx/DC Orders Clinical Impression: Viral URI, COPD exacerbation, Hypoxia, Chronic pancreatitis Disposition Disposition: Acute Care Hospital [facility] What to do if you have Problems For any increased pain, shortness of breath, bleeding, nausea or vomiting, chestpain, or any unexpected problems, contact your Primary Care Provider. Call [facility] ([phone]) or report tothe closest Emergency Room. Call 911 if necessary. 12/04/24 1846 Cosigner Signature (if applicable): CC: Dr. Misbah Elkins MD ~ Signed [facility]03-09-2025 Radiology Diagnostic study note [facility] Imaging Services [address] [place] [address] [id number] Chest PA and Lateral MR#: [id number] Acct: [id number] Name: GRACIE BANUELOS Rep #: [id number] : 1965 F 59 From: Jay Juarez DO PCP: Dr. Misbah Elkins MD Status: REG E R Study:Chest PA and Lateral Date of Exam: 12/04/24 Exam# [id number] Ordering Dr: Ema Inman MD PROCEDURE: CHEST PA AND LATERAL REASON FOR EXAM: Cough, hypoxia TECHNIQUE: Frontal and lateral views of the chest. COMPARISON: 01/02/2024 FINDINGS: Cardiomediastinal silhouette is within normal limits. No focal consolidation, sizeable pleural effusion or pneumothorax. Moderate emphysema. RAD/Chest PA and Lateral IMPRESSION: No acute airspace abnormality. Emphysema. Reading Location: [facility] CC: Dr. Misbah Elkins MD; Dr. Franco Inman MD ~ Simulation Educator: Signed [facility]03-09-2025 Discharge summary Author Franco Inman [facility] Note Date/Time December 04, 2024 6:46 pm [facility] Medical Records Department [address] [place] [address] Emergency Department Summary 12/04/24 MR#: [id number] Acct: [id number] Name: GRACIE BANUELOS Rep #:[id number] : 1965 59 From: Franco Inman MD PCP: Dr. Misbah Elkins MD Status:ADM I N Location: [place] [address] HPI History of Present Illness Chief Complaint: [...] had a pancreatic block done at the [facility] was discharged the same day. She [...] Allergy Other Verified 12/04/24 15:55 hydrocodone (From [place]) AdvReac Itching Verified 12/04/24 15:55 Family History [...] Back nontender. Moving all 4 extremities. Normal supervisor cartography strength. Normal dorsi plantarflexion. Calves are nontender [...] 80.5 H Lymph % (Auto) 6.8 L [place] % (Auto) 10.4 H Eos % (Auto) [...] No acute airspace abnormality. Emphysema. [facility], 2 views, AP and [...] rate of 121. No acute signs of [place] or ischemia. No dysrhythmia. Discharge Plan Dx/Rx/DC Orders Clinical Impression: Viral URI, COPD exacerbation, Hypoxia, Chronic pancreatitis Disposition Disposition: Acute Care Hospital [facility] What to do if you have Problems For any increased pain, shortness of breath, bleeding, nausea or vomiting, chestpain, or any unexpected problems, contact your Primary Care Provider. Call [facility] ([phone]) or report to the closest Emergency Room. Call 911 if necessary. 12/04/24 1846 <Electronically signed by Franco Inman MD> Cosigner Signature (if applicable): CC: Dr. Misbah Elkins MD ~ Signed [facility] Work Phone: [phone] 129-887003-06-2025 Telephone encounter Note* Telephone Encounter - Jane Farrell MD - 12/01/2024 11:58 AM EST Orders [facility]03-06-2025 Miscellaneous Notes* Telephone Encounter - Jane Farrell MD - 12/01/2024 11:58 AM EST Orders documented in [facility]03-[facility] Nurse Note* Reshma Telles RN - [...] MATERIAL: Procedure Discharge Instructions REFERRAL (RECOMMENDATION): None [facility]03-06-2025 Nurse Note* Reshma Telles RN - [...] RN In Department: GASTROENTEROLOGY documented in this encounterMidd[facility]own [facility]03-06-2025 NoteQ3 Patient Name: Gracie Banuelos Procedure Date: 12/01/2024 9:53 AM Date of : 1965 Admit Type: Outpatient Age: 59 Gender: Female Note Status: Finalized Attending MD: Jane Farrell MD, [id number] Procedure: Upper EUS Indications: Celiac plexus block [...] present medications. Procedure Code(s): --- Professional --- 00986, Esophagogastroduodenoscopy, flexible, transoral; with endoscopic ultrasound examination limited to the esophagus, stomach or duodenum, and adjacent structures Diagnosis Code(s): --- Professional --- K86.9, Disease of pancreas, unspecified K86.1, Other chronic pancreatitis R93.3, Abnormal findings on diagnostic imaging of other parts of digestive tract CPT copyright 2020 [employer]. All rights reserved. Attending Participation: I personally performed the entire procedure. Scope In: 10:14:38 AM Scope Out: 10:28:19 AM MD Jane Fields MD 12/01/2024 10:35:18 AM This report has been signed electronically by Jane Farrell MD Number of Addenda: 0 Note Initiated On: 12/01/2024 9:53 [id number] Patient Name: Gracie Banuelos Procedure Date: 12/01/2024 9:53 AM Date of : 1965 Admit Type: Outpatient Age: 59 Gender: Female Note Status: Finalized Attending MD: Jane Farrell MD, [id number] Procedure: Upper EUS Indications: Celiac plexus block for pain secondary to chronic pancreatitis Providers: Jane Farrell MD Referring Physician: Juan Senior (Referring ) Medicines: General Anesthesia Complications: No immediate complications. [...] present medications. Procedure Code(s): --- Professional --- 48888, Esophagogastroduodenoscopy, flexible, transoral; with endoscopic ultrasound examination limited to the esophagus, stomach or duodenum, and adjacent structures Diagnosis Code(s): --- Professional --- K86.9, Disease of pancreas, unspecified K86.1, Other chronic pancreatitis R93.3, Abnormal findings on diagnostic imaging of other parts of digestive tract CPT copyright 2020 [employer]. All rights reserved. Attending Participation: I personally performed the entire procedure. Scope In: 10:14:38 AM Scope Out: 10:28:19 AM MD Jane Fields MD 12/01/2024 10:35:18 AM This report has been signed electronically by Jane Farrell MD Number of Addenda: 0 Note Initiated On: 12/01/2024 9:53 [facility]03-06-2025 Nurse Note* Kathie Dorantes RN - 12/01/2024 [...] By: Kathie Dorantes RN In Department: GASTROENTEROLOGY [facility]03-04-2025 NotePatient Outreach (INTMMN) GRACIE BANUELOS ([id number]) 1965 F Date Time Provider Department 11/29/24 [...] [E78.5] Order(s):LIPID PANEL BASIC [SQLIPB] Order #: [id number] FUTURE Prescriptions as of 12/02/2024 - pantoprazole [...] by mouth at bedtime as needed. - dhqehe-zcdjodls-tbpupld (CREON 24) 24,000-76,000 -120,000 unit delayed release [...] stress female [N39.3] 11/24/2014 HPV test positive [CJP1909] 11/24/2014 Alcohol dependence in remission (HCC) [F10.21] [...] bloating [R14.0] 01/10/2021 01/10/2021 Encounter Status:Closed by JESUS PEMBERTONUSER on 12/02/24[facility] 11-25-2024 Telephone encounter Note* Telephone Encounter - Juan Bloom LPN - 11/25/2024 3:57 PM EST Spoke with Gracie, discussed that [facility] staff will be talking to patient in preoperative area and will give any medications IV to help with anxiety, patient understands and has no other questions. Juan Bloom LPN [facility] Work Phone: [phone]) 532-441802-28-2025 Miscellaneous Notes* Telephone Encounter - Juan Bloom [...] you do prescribe or if you won't [phone] (does not use MyChart) Lyric Yeung documented in this encounterMiddletown Hospital02-28-2025 Telephone encounter Note * Telephone Encounter [...] you do prescribe or if you won't [phone] (does not use MyChart) Lyric Yeung [facility]02-28-2025 Telephone encounter Note* Telephone Encounter - Raisa Jimenez RN - 11/25/2024 12:00 PM EST Spoke with pt and went over prep instructions, answering all her questions until pt was comfortableand verbalized understanding Raisa Jimenez MA [facility]02-28-2025 Miscellaneous Notes* Telephone Encounter - Raisa Jimenez RN - 11/25/2024 12:00 PM EST Spoke with pt and went over prep instructions, answering all her questions until pt was comfortableand verbalized understanding Raisa Jimenez MA documented in this encounterMiddletown Hospital02-27-2025 Nurse Note* Carroll Leblanc RN - 11/24/2024 4:09 PM EST Attempted to reach the patient at the contact number that they provided [phone] (home) . Unable to speak with patient so without identifying the patient the following information was left on their voice mail: Date of procedure, location and report time Prep instructions A message was left informing the patient/patient service representative they must have a responsible [...] Number to call with questions or concerns [phone] Number to call to cancel their procedure [phone] Carroll Leblanc RN [facility]02-27-2025 Nurse Note* Carroll Leblanc RN - 11/24/2024 4:09 PM EST Attempted to reach the patient at the contact number that they provided [phone] (home) . Unable to speak with patient so without identifying the patient the following information was left on their voice mail: Date of procedure, location and report time Prep instructions A message was left informing the patient/patient service representative they must have a responsible [...] Number to call with questions or concerns [phone] Number to call to cancel their procedure [phone] Carroll Leblanc RN documented in this encounterMiddletown Hospital02-24-2025 Telephone encounter Note * Telephone Encounter [...] Phan RN November 21, 2024 2:14 PM [facility]02-24-2025 Miscellaneous Notes* Telephone Encounter - Mike [...] 21, 2024 2:14 PM documented in this encounterMiddletown Hospital02-12-2025 Telephone encounter Note * Telephone Encounter - Candie Murdock MA - 11/09/2024 11:38 AM EST Patient notified and verbalized understanding. Candie Murdock MA [facility]02-12-2025 Miscellaneous Notes* Telephone Encounter - Candie [...] back. Maribeth Owen LPN documented in this encounterMiddletown Hospital02-12-2025 Telephone encounter Note * Telephone Encounter - Misbah Elkins MD - 11/09/2024 10:22 AM EST The medication Is for anxiety, and was the medication she requested. So please ask her to use it. RegardsMisbah MD [facility]02-12-2025 Telephone encounter Note* Telephone Encounter - Marisela Rico LPN - 11/09/2024 8:17 AM EST Called and updated patient, voiced understanding. Marisela Rico LPN November 09, 2024 8:18 AM [facility]02-12-2025 Miscellaneous Notes* Telephone Encounter - Marisela iRco LPN - 11/09/2024 8:17 AM EST Called and updated patient, voiced understanding. Marisela Rico LPN November 09, 2024 8:18 AM * Telephone Encounter - Marisela Rico LPN - 11/09/2024 8:10 AM EST ----- Message from Misbah Elkins MD sent at 11/08/2024 5:00 PM EST ----- Chest xr is normal . Misbah Cisneros MD documented in this encounterMiddletown Hospital02-12-2025 Telephone encounter Note * Telephone Encounter - Marisela Rico LPN - 11/09/2024 8:10 AM EST ----- Message from Misabh Elkins MD sent at 11/08/2024 5:00 PM EST ----- Chest xr is normal . Regards, Misbah Elkins MD [facility]02-11-2025 Telephone encounter Note* Telephone Encounter - Maribeth [...] and advise pt back. Maribeth Owen LPN [facility]02-10-2025 History of Present illness Narrative* Roland Camargo [...] PATIENT PRESENTS WITH AN IMPLANTABLE OR ATTACHED SALES REPRESENTATIVE TRAINEE: No RADIOLOGY DEPARTMENT: General X-ray: Exam(s) Completed: Chest X-Ray PERIPHERAL IV DATA: Not applicable SIGNED BY: RT Oneyda(R) November 07, 2024 3:11 PM documented in this encounterMiddletown Hospital02-10-2025 NoteHNO ID: [id number] Author: ROLAND CAMARGO RT(R) Service: Radiology Author [...] PATIENT PRESENTS WITH AN IMPLANTABLE OR ATTACHED SALES REPRESENTATIVE TRAINEE: No RADIOLOGY DEPARTMENT: General X-ray: Exam(s) Completed: Chest X-Ray PERIPHERAL IV DATA: Not applicable SIGNED BY: RT Oneyda(Heath) November 07, 2024 3:11 [facility]02-10-2025 NoteHNO ID: [id number] Author: MISBAH ELKINS MD Service: ? Author [...] anxiety and depression. She was admitted to [facility] from 01/01 to 01/04 for [...] times and is only getting Remeron from [facility]. She says she has panic and [...] Take 1 tablet by mouth once daily. szriym-pxjkzqtg-mxdbuqq (CREON 24) 24,000-76,000 -120,000 unit delayed release capsule Take 3 capsules by mouth once daily. (Patient not taking: Reported on 11/02/2024) metoprolol tartrate, short acting (more content not included)...[facility]02-10-2025 History of Present illness Narrative* Misbah Elkins MD - 11/07/2024 2:01 PM EST BESSIE Bowman is a 59-year-old woman with a past medical history of hypertension, hyperlipidemia, alcohol use disorder with moderate dependence currently only using alcohol twice a month, alcohol hepatitis and pancreatitis, tobacco abuse disorder, pulmonary emphysema, lumbar disc disease with radiculopathy, anxiety and depression. She was admitted to [facility] from 01/01 to 01/04 for [...] Take 1 tablet by mouth once daily. dskfmq-rhhmcmsg-tupgicx (CREON 24) 24,000-76,000 -120,000 unit delayed release [...] FRONTAL/LAT Misbah Elkins MD documented in this encounterMidd[facility]02-05-2025 Instructions* Patient Instructions* Juan Senior APRN.CNP - 11/02/2024 2:41 PM EST Schedule pain block Schedule appointment with pain management Small frequent meals, lean protein (chicken, fish, pork or turkey are preferred), low fat and high antioxidants [email or web address] for diet tips Follow up in 3-6 months documented in this encounterMiddletown Hospital02-05-2025 History of Present illness Narrative* Juan [...] muscles on the left is partially imaged. [facility] 08/15/2024 [facility] Gracie Banuelos is a 59 year [...] shortness of breath all improving. Goes to [facility] with next routine exam in September. [...] and nausea. Denies anyvomiting or bowel changes. [facility] Gastroenterology 05/27/2022 HPI Gracie Banuelos is [...] 02, 2024 12:34 PM documented in this encounterMiddletown Hospital02-05-2025 NoteHNO ID: [id number] Author: JUAN SENIOR APRN.CNP Service: ? Author [...] muscles on the left is partially imaged. [facility] 08/15/2024 BESSIE Gracie Banuelos is a 59 year old [...] shortness of breath all improving. Goes to [facility] with next routine exam in September. [...] nausea. Denies any vomiting or bowel changes. [facility] 05/27/2022 HPI Gracie Banuelos is [...] Oct 2019 SYMPTOMS History (more content not included)...[facility]01-31-2025 Telephone encounter Note* Telephone Encounter - [...] by mouth once daily. Mihaela Cheng RN [facility]01-31-[facility]25 Miscellaneous Notes* Telephone Encounter - Mihaela [...] daily. Mihaela Cheng RN documented in this encounterMiddletown Hospital11-26-2024 History of Present illness Narrative* Reef [...] PATIENT PRESENTS WITH AN IMPLANTABLE OR ATTACHED SALES REPRESENTATIVE TRAINEE: No ALLERGIES: Reviewed and unchanged CONTRAST ALLERGY: [...] 2024 TIME: 10:05 AM documented in this encounterMiddletown Hospital11-26-2024 NoteHNO ID: [id number] Author: NADEEN BOBBY RT (R) Service: ? Author Type: Office Secretary Type: Progress Notes Filed: 08/23/2024 10:05 Note [...] PATIENT PRESENTS WITH AN IMPLANTABLE OR ATTACHED SALES REPRESENTATIVE TRAINEE: No ALLERGIES: Reviewed and unchanged CONTRAST ALLERGY: [...] Banuelos DATE: August 23, 2024 TIME: 10:05 [facility]11-22-2024 Telephone encounter Note* Telephone Encounter - Maribeth Owen LPN - 08/19/2024 11:35 AM EST Pt called in to reports she is still getting the Lexapro in her packs. I called [facility] and they will pick her packs up today and remove the Lexapro and then deliver back to pt today. Pt notified. Maribeth Owen LPN [facility]11-22-2024 Miscellaneous Notes* Telephone Encounter - Maribeth Owen LPN - 08/19/2024 11:35 AM EST Pt called in to reports she is still getting the Lexapro in her packs. I called [facility] and they will pick her packs up today and remove the Lexapro and then deliver back to pt today. Pt notified. Maribeth Owen LPN documented in this encounterMiddletown Hospital11-20-2024 Telephone encounter Note * Telephone Encounter - Soila Easton APRN.CNP - 08/17/2024 7:19 AM EST PDMP website checked and validated. All prescriptions have been APPROPRIATELY filled. No suspiciousactivity was identified. 08/17/2024 by Soila Easton APRN.IGOR [facility]11-20-2024 Miscellaneous Notes* Telephone Encounter - Soila Easton APRN.IGOR - 08/17/2024 7:19 AM EST PDMP website checked and validated. All prescriptions have been APPROPRIATELY filled. No suspiciousactivity was identified. 08/17/2024 by Soila Easton APRN.IGOR * Telephone Encounter - Catherine Pennington LPN [...] 16, 2024 9:30 AM documented in this encounterMiddletown Hospital11-19-2024 Telephone encounter Note * Telephone Encounter [...] Pennington LPN August 16, 2024 9:30 AM [facility]11-18-2024 NoteHNO ID: [id number] Author: SOILA EASTON APRN.COMPANY MARKER Service: ? Author Type: Nurse Practitioner Type: [...] shortness of breath all improving. Goes to [facility] with next routine exam in September. [...] airways disease (HCC) Alcohol dependence in remission ([facility]) 07/10/2015 Alcohol use disorder 08/27/2017 Alcohol-induced pancreatitis Alcoholic hepatitis 05/18/2012 Alcoholic liver disease (HCC) 11/16/2013 Anemia Anxiety with depression Asthma Chronic hypoxemic respiratory failure (HCC) COPD (chronic obstructive pulmonary disease) ([facility]) 05/25/2012 DDD (degenerative disc disease), cervical 09/03/2018 [...] Stage 3 severe COPD by GOLD classification ([facility]) 2018 Tobacco use greater than 30 years [...] Take 1 tablet by mouth once daily. kcmzcg-dkxtavjg-zmcopgi (CREON 24) 24,000-76,000 -120,000 unit delayed release [...] 200 mg capsule Take (more content not included)...[facility]11-18-2024 History of Present illness Narrative* Soila Easton APRN.COMPANY MARKER - 08/15/2024 11:36 AM EST CC: Patient [...] shortness of breath all improving. Goes to [facility] with next routine exam in September. [...] airways disease (HCC) Alcohol dependence in remission ([facility]) 07/10/2015 Alcohol use disorder 08/27/2017 Alcohol-induced pancreatitis Alcoholic hepatitis 05/18/2012 Alcoholic liver disease ([facility]) 11/16/2013 Anemia Anxiety with depression Asthma Chronic hypoxemic respiratory failure ([facility]) COPD (chronic obstructive pulmonary disease) ([facility]) 05/25/2012 DDD (degenerative disc disease), cervical 09/03/2018 [...] Stage 3 severe COPD by GOLD classification ([facility]) 2018 Tobacco use greater than 30 years [...] Take 1 tablet by mouth once daily. hwrbix-cnukkhhr-oplwzrn (CREON 24) 24,000-76,000 -120,000 unit delayed release [...] plan. Soila Easton APRN.IGOR documented in this encounterMiddletown Hospital11-14-2024 Telephone encounter Note * Telephone Encounter - Eva Martines RN - 08/11/2024 3:26 PM EST Patient notified of results and provider's instructions. Patient verbalizes understanding. Eva Martines RN [facility]11-14-2024 Miscellaneous Notes* Telephone Encounter - Eva [...] PM EST ----- Message from Soila Easton APRN.COMPANY MARKER sent at 08/11/2024 3:16 PM EST ----- No pneumonia on chest xray. Continue current treatment and upcoming follow up appointment. Thank you Soila Easton APRN.COMPANY MARKER documented in this encounterMiddletown Hospital11-14-2024 Telephone encounter Note * Telephone Encounter - Maribeth Owen LPN - 08/11/2024 3:21 PM EST .Left a message for pt to call the office and ask to speak to a nurse. Maribeth Owen LPN [facility]11-14-2024 Telephone encounter Note* Telephone Encounter - Maribeth Owen LPN - 08/11/2024 3:21 PM EST ----- Message from Soila Easton APRN.COMPANY MARKER sent at 08/11/2024 3:16 PM EST ----- No pneumonia on chest xray. Continue current treatment and upcoming follow up appointment. Thank you Soila Easton APRN.COMPANY MARKER [facility]11-13-[facility] History of Present illness Narrative* Contreras Mack, [...] PATIENT PRESENTS WITH AN IMPLANTABLE OR ATTACHED SALES REPRESENTATIVE TRAINEE: No RADIOLOGY DEPARTMENT: General X-ray: Exam(s) Completed: Chest X-Ray PERIPHERAL IV DATA: Not applicable SIGNED BY: ASTRID Muniz) August 10, 2024 5:40 PM documented in this encounterMiddletown Hospital11-13-2024 NoteHNO ID: [id number] Author: CONTRREAS MACK RT(R) Service: ? Author Type: Office Secretary Type: Progress Notes Filed: 08/10/2024 17:47 Note [...] PATIENT PRESENTS WITH AN IMPLANTABLE OR ATTACHED SALES REPRESENTATIVE TRAINEE: No RADIOLOGY DEPARTMENT: General X-ray: Exam(s) Completed: Chest X-Ray PERIPHERAL IV DATA: Not applicable SIGNED BY: RT Cristy(Heath) August 10, 2024 5:40 [facility]11-13-2024 NoteHNO ID: [id number] Author: SOILA EASTON APRN.COMPANY MARKER Service: ? Author Type: Nurse Practitioner Type: [...] airways disease (HCC) Alcohol dependence in remission ([facility]) 07/10/2015 Alcohol use disorder 08/27/2017 Alcohol-induced pancreatitis [...] Stage 3 severe COPD by GOLD classification ([facility]) 2018 Tobacco use greater than 30 years [...] Take 1 tablet by mouth once daily. jfazgz-zinxnnnt-whkodcu (CREON 24) 24,000-76,000 -120,000 unit delayed release [...] daily with meals. luciano (more content not included)...[facility]11-13-[facility] History of Present illness Narrative* Soila Easton APRN.COMPANY MARKER - 08/10/2024 5:05 PM EST CC: Patient [...] Stage 3 severe COPD by GOLD classification ([facility]) 2018 Tobacco use greater than 30 years [...] Take 1 tablet by mouth once daily. hiypof-zxtzrixn-nxjpqma (CREON 24) 24,000-76,000 -120,000 unit delayed release [...] plan. Soila Easton APRN.CNP documented in this encounterMiddletown Hospital11-13-2024 Telephone encounter Note * Telephone Encounter [...] urine sample to test for a UTI. [facility]11-13-2024 Miscellaneous Notes* Telephone Encounter - Caroline [...] Regards, Misbah Elkins MD documented in this encounterMiddletown Hospital11-13-2024 Telephone encounter Note * Telephone Encounter - Caroline Miller RN - 08/10/2024 1:14 PM EST ----- Message from Misbah Elkins MD sent at 08/10/2024 12:44 PM EST ----- Gracie your while count always tends to be high, We will evaluate that in the next visit. Regards, Misbah Elkins MD [facility]11-08-2024 Instructions* Patient Instructions* Misbah Elkins MD [...] Sleep Foundation at [email or web address]. documented in this encounterMiddletown Hospital11-08-2024 History of Present illness Narrative* Misbah Elkins MD - 08/05/2024 3:40 PM EST BESSIE Bowman is a 59-year-old woman with a past medical history of hypertension, hyperlipidemia, alcohol use disorder with moderate dependence currently only using alcohol twice a month, alcohol hepatitis and pancreatitis, tobacco abuse disorder, pulmonary emphysema, lumbar disc disease with radiculopathy, anxiety and depression. She was admitted to [facility] from 01/01 to 01/04 for [...] Stage 3 severe COPD by GOLD classification ([facility]) 2018 Tobacco use greater than 30 years [...] Take 1 tablet by mouth once daily. zzbccb-qzplzplu-rasfosb (CREON 24) 24,000-76,000 -120,000 unit delayed release [...] DIFFERENTIAL Misbah Elkins MD documented in this encounterMiddletown Hospital11-08-2024 NoteHNO ID: [id number] Author: MISBAH ELKINS MD Service: ? Author [...] anxiety and depression. She was admitted to [facility] from 01/01 to 01/04 for [...] times and is only getting Remeron from [facility]. She says she has [...] Stage 3 severe COPD by GOLD classification ([facility]) 2018 Tobacco use greater than 30 years [...] EGD EUS 12/05/2019 mil (more content not included)...[facility]10-11-2024 Telephone encounter Note* Telephone Encounter - Soila Easton APRN.CNP - 07/08/2024 2:43 PM EDT PDMP website checked and validated. All prescriptions have been APPROPRIATELY filled. No suspiciousactivity was identified. 07/08/2024 by Soila Easton APRN.CNP [facility]10-11-2024 Miscellaneous Notes* Telephone Encounter - Soila Easton APRN.CNP - 07/08/2024 2:43 PM EDT PDMP website checked and validated. All prescriptions have been APPROPRIATELY filled. No suspiciousactivity was identified. 07/08/2024 by Soila Easton APRN.IGOR * Telephone Encounter [...] 08, 2024 1:52 PM documented in this encounterMiddletown Hospital10-11-2024 Telephone encounter Note * Telephone Encounter [...] Phan RN July 08, 2024 1:52 PM [facility]09-24-2024 Telephone encounter Note* Telephone Encounter - Candie Murdock MA - 06/21/2024 2:32 PM EDT Patient no showed to today's appt. Letter sent. Candie Murdock MA [facility]09-24-2024 Miscellaneous Notes* Telephone Encounter - Candie Murdock MA - 06/21/2024 2:32 PM EDT Patient no showed to today's appt. Letter sent. Candie Murdock MA documented in this encounterMiddletown Hospital09-19-2024 Telephone encounter Note * Telephone Encounter - Soila Easton APRN.CNP - 06/16/2024 12:39 PM EDT PDMP website checked and validated. All prescriptions have been APPROPRIATELY filled. No suspiciousactivity was identified. 06/16/2024 by Soila Easton APRN.CNP [facility]09-19-2024 Miscellaneous Notes* Telephone Encounter - Soila [...] 15, 2024 2:33 PM documented in this encounterMiddletown Hospital09-18-2024 Telephone encounter Note * Telephone Encounter [...] Velazquez LPN June 15, 2024 5:21 PM [facility]09-18-2024 Telephone encounter Note* Telephone Encounter - [...] Holly Jensen June 15, 2024 2:33 PM [facility]08-21-2024 History of Present illness Narrative* Misbah Elkins MD - 05/18/2024 4:37 PM EDT BESSIE Bowman is a 59-year-old woman with a past medical history of hypertension, hyperlipidemia, alcohol use disorder with moderate dependence currently only using alcohol twice a month, alcohol hepatitis and pancreatitis, tobacco abuse disorder, pulmonary emphysema, lumbar disc disease with radiculopathy, anxiety and depression. She was admitted to [facility] from 01/01 to 01/04 for [...] tablet by mouth two times a day. qycyar-zlopzykx-xqhrowb (CREON 24) 24,000-76,000 -120,000 unit delayed release [...] 577.1, ICD10: K86.0 Refilled her Creon - WNLEOQ-BYRWDIOB-TVEUHPS 24,000-76,000-120,000 UNIT CAPSULE,DELAYED REL 3. Chronic obstructive [...] TABLET Misbah Elkins MD documented in this encounterMiddletown Hospital08-19-2024 Telephone encounter Note * Telephone Encounter - Maribeth Owen LPN - 05/16/2024 7:28 PM EDT Spoke with pt and apt booked for tomorrow. Pt not out of medication. Pt will discuss medication below at apt. Maribeth Owen LPN [facility]08-19-2024 Miscellaneous Notes* Telephone Encounter - Maribeth [...] patient via phone and does not use [employer]. Patients phone has restriction on it and [...] 13, 2024 12:12 PM documented in this encounterMiddletown Hospital08-19-2024 Telephone encounter Note * Telephone Encounter - Susy Barnes LPN - 05/16/2024 6:57 PM EDT Unable to reach Patient, phone has restrictions and can not receive call. Called Domonique/Sister, asking for Patient to call & speak to nurse. Susy Barnes LPN [facility]08-16-[facility]24 Telephone encounter Note* Telephone Encounter - Marisela Rico LPN - 05/13/2024 3:58 PM EDT Unable to contact patient via phone and does not use MyChart. Patients phone has restriction on it and can not receive call. Patient has an appointment with Soila Easton on 05/23/24 if unable to contact patient sooner. Marisela Rico LPN May 13, 2024 3:59 PM [facility]08-16-2024 Telephone encounter Note* Telephone Encounter - Misbah Elkins MD - 05/13/2024 12:34 PM EDT Please set gracie to see me on Thursday to discuss this refill Blayne, Misbah Elkins MD [facility]08-16-2024 Telephone encounter Note* Telephone Encounter - [...] Owen LPN May 13, 2024 12:12 PM [facility]07-19-[facility] Telephone encounter Note* Telephone Encounter - Soila Easton APRN.CNP - 04/15/2024 2:36 PM EDT PDMP website checked and validated. All prescriptions have been APPROPRIATELY filled. No suspiciousactivity was identified. 04/15/2024 by Soila Easton APRN.CNP [facility]07-19-2024 Miscellaneous Notes* Telephone Encounter - Soila [...] 15, 2024 1:32 PM documented in this encounterMiddletown Hospital07-19-2024 Telephone encounter Note * Telephone Encounter [...] Phan RN April 15, 2024 1:32 PM [facility]06-21-[facility]24 Telephone encounter Note* Telephone Encounter - Annette Hayes APRN.CNP - 03/18/2024 3:09 PM EDT PDMP website checked and validated. All prescriptions have been APPROPRIATELY filled. No suspiciousactivity was identified. 03/18/2024 by Annette Hayes APRN.CNP [facility]06-21-2024 Miscellaneous Notes* Telephone Encounter - Annette [...] day for 30 days. Tasneem Cisneros Med Jensen March 18, 2024 2:51 PM documented in this encounterMiddletown Hospital06-21-2024 Telephone encounter Note * Telephone Encounter [...] day for 30 days. Tasneem Cisneros Med Jensen March 18, 2024 2:51 PM [facility]06-17-2024 Telephone encounter Note* Telephone Encounter - Eda Shine LPN - 03/14/2024 2:02 PM EDT Phoned patient and left message that she should have enough medication to get her to her appointment next week with Soila Easton on 03/18/24. Eda Shine LPN [facility]06-17-2024 Miscellaneous Notes* Telephone Encounter - Eda Shine LPN - 03/14/2024 2:02 PM EDT Phoned patient and left message that she should have enough medication to get her to her appointment next week with Soila Easton on 03/18/24. Eda Shine LPN * Telephone Encounter - Julissa Burgos MD - 03/14/2024 12:53 PM EDT Last RX 5/31 for 28 day supply so should have [...] 14, 2024 11:25 AM documented in this encounterMiddletown Hospital06-17-2024 Telephone encounter Note * Telephone Encounter - Julissa Burgos MD - 03/14/2024 12:53 PM EDT Last RX 02/25 for 28 day supply so should have enough to last till 03/25 Has 03/18 appointment with Soila, so should be able to get refills next week [facility] Work Phone: [phone] Telephone encounter Note* Telephone Encounter - Catherine Pennington LPN - 03/14/2024 11:24 AM EDT [facility] calls for a refill for pt. [...] Pennington LPN March 14, 2024 11:25 AM [facility]-31-[facility] Telephone encounter Note* Telephone Encounter - Annette Hayes APRN.CNP - 02/26/2024 3:25 PM EDT PDMP website checked and validated. All prescriptions have been APPROPRIATELY filled. No suspiciousactivity was identified. 02/26/2024 by Annette Hayes APRN.IGOR [facility]05-31-2024 Miscellaneous Notes* Telephone Encounter - Annette Hayes APRN.CNP - 02/26/2024 3:25 PM EDT PDMP website checked and validated. All prescriptions have been APPROPRIATELY filled. No suspiciousactivity was identified. 02/26/2024 by Annette Hayes APRN.IGOR * Telephone Encounter - Kiara Miramontes LPN - 02/26/2024 2:31 PM EDT Patient is now using [facility]. [facility] is unable to transfer this from [facility] since it is a controlled medication. Patient [...] you. Kiara Miramontes LPN. documented in this encounterMiddletown Hospital05-31-2024 Telephone encounter Note * Telephone Encounter - Kiara Miramontes LPN - 02/26/2024 2:31 PM EDT Patient is now using [facility]. [facility] is unable to transfer this from [facility] since it is a controlled medication. Patient [...] Please advise. Thank you. Kiara Miramontes LPN. [facility]05-24-2024 Telephone encounter Note* Telephone Encounter - Soila Easton APRN.CNP - 02/19/2024 2:30 PM EDT PDMP website checked and validated. All prescriptions have been APPROPRIATELY filled. No suspiciousactivity was identified. 02/19/2024 by Soila Easton APRN.CNP [facility]05-24-2024 Miscellaneous Notes* Telephone Encounter - Soila Easton APRN.CNP - 02/19/2024 2:30 PM EDT PDMP website checked and validated. All prescriptions have been APPROPRIATELY filled. No suspiciousactivity was identified. 02/19/2024 by Soila Easton APRN.COMPANY MARKER * Telephone Encounter - Eda Shine LPN [...] Thank you. Pily Dewitt. documented in this encounterMiddletown Hospital05-24-2024 Telephone encounter Note * Telephone Encounter [...] Please advise. Thank you. Eda Shine LPN. [facility]05-24-2024 Telephone encounter Note* Telephone Encounter - [...] 03/18/2024 Please advise. Thank you. Pily Dewitt. [facility]05-09-2024 Miscellaneous Notes* Telephone Encounter - Soila Easton APRN.CNP - 02/04/2024 12:37 PM EDT Noted Soila Easton APRN.CNP * Telephone Encounter - Mihaela Cheng RN - 02/04/2024 9:19 AM EDT FYI: Patient calling in to update PCP that she was seen by Dr. Owen Del Rosario at [facility] recently and diagnosed with gout in her right foot. She has been prescribed medication/treatment and will be following up with them next week. Patient states if PCP team needs any of these records, to contact DR. Del Rosario's office for them. Patient will be seeing Soila Easton CNP in February. Mihaela Cheng RN documented in this encounterMiddletown Hospital05-09-2024 Telephone encounter Note * Telephone Encounter - Soila Easton APRN.CNP - 02/04/2024 12:37 PM EDT Noted Soila Easton APRN.CNP [facility]05-09-2024 Telephone encounter Note* Telephone Encounter - Mihaela Cheng RN - 02/04/2024 9:19 AM EDT FYI: Patient calling in to update PCP that she was seen by Dr. Owen Del Rosario at [facility] recently and diagnosed with gout in her right foot. She has been prescribed medication/treatment and will be following up with them next week. Patient states if PCP team needs any of these records, to contact DR. Del Rosario's office for them. Patient will be seeing Soila Easton CNP in February. Mihaela Cheng RN [facility]05-01-2024 Telephone encounter Note* Telephone Encounter - María Elena Sheth RN - 01/27/2024 6:04 PM EDT Spoke with patient. Given message from provider's office. Patient verbalizes understanding. María Elena Sheth RN [facility]05-01-2024 Miscellaneous Notes* Telephone Encounter - María [...] you, Tara Youngblood APRN.IGOR documented in this encounterMiddletown Hospital05-01-2024 Telephone encounter Note * Telephone Encounter - Tara Youngblood APRN.CNP - 01/27/2024 5:19 PM EDT Only if symptoms do not resolve. Thank you, Tara Youngblood APRN.COMPANY MARKER [facility]05-01-2024 Telephone encounter Note* Telephone Encounter - Pam Jones LPN - 01/27/2024 5:13 PM EDT T/C to pt gave information provided. Pt voices understanding. She asks when done with atb . Should she come back to make sure its resolved? Placed records in your basket of pulmonary visit. [facility]05-01-2024 Telephone encounter Note* Telephone Encounter - [...] weget these records. Thank you, Tara Youngblood APRN.COMPANY MARKER [facility]04-29-2024 History of Present illness Narrative* Sonja [...] PATIENT PRESENTS WITH AN IMPLANTABLE OR ATTACHED SALES REPRESENTATIVE TRAINEE: No RADIOLOGY DEPARTMENT: General X-ray: Exam(s) Completed: Chest X-Ray PERIPHERAL IV DATA: Not applicable SIGNED BY: RT Channing(R) January 25, 2024 2:07 PM documented in this encounterMiddletown Hospital04-29-2024 History of Present illness Narrative* Tara Youngblood APRN.COMPANY MARKER - 01/25/2024 1:20 PM EDT Chief Complaint Patient presents with: ER follow up HPI Gracie Banuelos is a 58 year old female who presents here today for Above Complaints. Gracie is an established patient of Dr. Satnam MD. She is a new patient to me today. [employer] computer system was down at time of this appointment. No access to chart during assessment/exam. Pt was aware of this prior to appointment and still agreed to appointment. Concerns today... ER follow-up --- [facility] ER visit on 01/18 d/t [...] not cleared up from prior admission at [facility] from 12/31-01/04. Stillvery wheezy and [...] Stage 3 severe COPD by GOLD classification ([facility]) 2018 Tobacco use greater than 30 years [...] tablet by mouth two times a day. waaxen-gxkzlywe-sgeitee (CREON 24) 24,000-76,000 -120,000 unit delayed release [...] 60+ series) Never done Covid-19 Vaccine(3 - 2022- season) due on 05/29/2023 Colorectal Cancer [...] look for resolution of prior pneumonia from [facility] admission 3 weeks ago. Concern [...] suspiciousactivity was identified. 01/25/2024 by Tara Youngblood APRN.COMPANY MARKER RTO as needed. Prescription instructions reviewed with patient as applicable. Potential red flag symptoms discussed with the patient. Reviewed appropriate action plan to take if red flag symptoms occur. Patient agreeable to treatment plan. Tara Castellanos APRN.COMPANY MARKER [address] [place] [address] documented in this encounterMiddletown Hospital04-26-2024 Telephone encounter Note * Telephone Encounter - So Freeman LPN - 01/22/2024 3:16 PM EDT Patient calling back to check status of refill, aware SERVICE COUNTER CASHIER is still seeing patients not addressed yet. [facility]04-26-2024 Miscellaneous Notes* Telephone Encounter - So Freeman LPN - 01/22/2024 3:16 PM EDT Patient calling back to check status of refill, aware SERVICE COUNTER CASHIER is still seeing patients not addressed yet. [...] notify patient. Nohelia Zacarias documented in this encounterMiddletown Hospital04-26-2024 Telephone encounter Note * Telephone Encounter [...] Please advise. Thank you. Chen Chauhan LPN. [facility]04-26-2024 Telephone encounter Note* Telephone Encounter - [...] No need to notify patient. Nohelia Zacarias [facility]04-24-2024 Telephone encounter Note* Telephone Encounter - Soila Easton APRN.CNP - 01/20/2024 7:03 AM EDT PDMP website checked and validated. All prescriptions have been APPROPRIATELY filled. No suspiciousactivity was identified. 01/20/2024 by Soila Easton APRN.CNP [facility]04-24-2024 Miscellaneous Notes* Telephone Encounter - Soila [...] you. Marge Perkins RN. documented in this encounterMiddletown Hospital04-23-2024 Discharge summary Author Erik Gomez [facility] January 19, 2024 11:52pm Note Date/Time January 19, 2024 10: 42pm [facility] Medical Records Department [address] [place] [address] Emergency Department Summary 01/19/24 MR#: [id number] Acct: [id number] Name: GRACIE BANUELOS Rep #:[id number] : 1965 58 From: Erik Gomez MD [...] she is asking for 1 of those. [facility] Medical History Acute on chronic hypoxic [...] QHS sleep 01/16/22 [History Last Taken 01/01/24] hppacw-eyjozxza-defeejn 24,000-76,000-120,000 unit capsule,delayed rel (Creon) 2cap PO [...] Allergy Other Verified 01/19/24 22:09 hydrocodone [From [place]] AdvReac Itching Verified 01/19/24 22:09 Family History [...] the right lower extremity, and per the metallurgy laboratory technician's preliminary interpretation, it is negative for [...] Discussion w/another healthcare provider: Other (vascular u/s metallurgy laboratory technician) Discharge Plan Triage Chief Complaint: Edema [...] 14 0RF Primary Care Provider: Anat Gutiérrez SERVICE COUNTER CASHIER Referrals: Alden Monroy, DPM [Med Staff - Active Staff] - 1 Week if not improving Anat Gutiérrez SERVICE COUNTER CASHIER, SERVICE COUNTER CASHIER-C [Primary Care Provider] - Disposition Disposition: Home, Self Care What to do if you have Problems For any increased pain, shortness of breath, bleeding, nausea or vomiting, chestpain, or any unexpected problems, contact your Primary Care Provider. Call [facility] ([phone]) or report to the closest Emergency Room. Call 911 if necessary. 01/19/242351 <Electronically signed by Erik Gomez MD> Cosigner Signature (if applicable): CC: SERVICE COUNTER CASHIERMiriam Coppola Older ~ Signed [facility] Work Phone: 1(349) 737-927104-22-2024 Telephone encounter Note* Telephone Encounter - Marge [...] Please advise. Thank you. Marge Perkins RN. [facility]04-16-[facility]24 Miscellaneous Notes* Telephone Encounter - So Freeman LPN - 01/12/2024 4:09 PM EDT Phoned pharmacy and aware Metoprolol rx had been sent in per SERVICE COUNTER CASHIER. * Telephone Encounter - Anat Gutiérrez APRN.CNP [...] Metoprolol rx for the patient. Asking if SERVICE COUNTER CASHIER wanted to send rx for the patient, or if the patient gets from another provider? Please advise documented in this encounterMiddletown Hospital04-16-2024 Instructions* Patient Instructions* Anat Gutiérrez APRN.CNP - 01/12/2024 11:36 AM EDT FOR BLOOD PRESSURE: DISCONTINUE HYDROCHLOROTHIAZIDE. DECREASE AMLODIPINE TO 5 MG DAILY. CONTINUE WITH METOPROLOL 25 MG TWICE A DAY OKAY TO RESTART HYDROXYZINE HAVE LAB WORK DONE IN ONE WEEK documented in this encounterMiddletown Hospital04-16-2024 History of Present illness Narrative* Anat [...] today for above. She was admitted to [facility] from 01/01 to 01/04 for [...] systolic blood pressure less than 100 mmHG. txqpse-ynifumxm-okwnpgz (CREON 24) 24,000-76,000 -120,000 unit delayed release [...] Cognition normal. DATA REVIEWED: Outside chart from [facility] admission reviewed. ASSESSMENT/PLAN: 1. Essential [...] Patient agreeable to treatment plan. Anat Gutiérrez APRN.COMPANY MARKER documented in this encounterMiddletown Hospital04-10-2024 Miscellaneous Notes* Telephone Encounter - Sylvia [...] for treatment for this. documented in this encounterMiddletown Hospital04-10-2024 History of Present illness Narrative* Deandra Botello LPN - 01/06/2024 2:00 PM EDT TRANSITION CARE MANAGEMENT (TCM) INITIAL CONTACT Mushroom P[facility] Outreach Provider Action/FYI: TCM Initial contact with patient post discharge, spoke to patient. Patient identified by name and . TRANSITION CARE MANAGEMENT INITIAL OUTREACH DOCUMENTATION: 01/06/2024 Date of Outreach: Outreach Attempt 1: Contact Made Date of Discharge 01/05/2024 SUMMARY: -Pt discharged from [facility] on 01/05/24. -Admitted for: hypoxia,pneumonia,COPD exac Do you have a hospital follow up appointment with your PCP? Appointment on 01/12/24 with Anat Ghotra SERVICE COUNTER CASHIER. Yes. Remind patient of appointment date, time, [...] instructions/AVS at all. Restate discharge instructions from [facility] verbally, copy/paste via [email or web address], mail, or provide in person. Do you have all the necessary equipment and supplies at home? Yes Medical records from recent hospitalization: Placed for provider to review Pt filled new medicines at [facility] but [facility]'s pharmacy is her normal pharmacy. She will call [facility]'s pharmacy to see if they can pull the new rx she got from [facility] to make sure [facility] pharmacy has her updated medicines. [facility]'s pharmacy pre packages pt medicines documented in this encounterMiddletown Hospital04-09-2024 Discharge summary Author Bert Greenwood [facility] January 05, 2024 12:07pm Note Date/Time January 05, 2024 7:[address] [facility] Medical Records Department [address] [place] [address] Instructions for Home/Discharge Instructions 01/05/24 0739 MR#: [id number] Acct: [id number] Name: FERNIE BANUELOSTERRANCE Chase Rep #:[id number] : 1965 58 From: Bert Nixon PCP: Anat Older, SERVICE COUNTER CASHIER-C Status:ADM IN Discharge Instructions Diet Discharge Diet: [...] Anat Gutiérrez NP Consulting Providers: Carin Meraz; Anastaica Bonilla Discharge Orders/Prescriptions Prescriptions: New tramadol 50 [...] EASTON NP-C [Non-Staff] - Anat Gutiérrez NP, MARY-C [Primary Care Provider] - Gonzalo Sebastian DO [Med Staff - Active Staff] - Within 2 Weeks Disposition Disposition (needs filled in before D/C Order can be placed): Home, Self Care 01/05/24 1207<Electronically signed by Bert Greenwood MD>Bert Greenwood MD CC: MARY-C Anat Easton; Dr. Carin Meraz MD; Dr. Anastacia Bonilla MD ~ Signed [facility] Work Phone: 1(837) 545-560604-08-2024 Progress note Author Bert Greenwood [facility] January 04, 2024 1:21pm Note Date/Time January 04, 2024 8:[address] [facility] Medical Records Department [address] [place] [address] Progress Note - Hospitalist 01/04/24827 MR#: [id number] Acct: [id number] Name: GRACIE BANUELOS Rep #:[id number] : 1965 58 From: Bert Nixon PCP: CARMEN Salazar Status:ADM IN [facility] Reason for Visit Reason for Visit: Diagnoses [...] * # Charges/Coding Visit Charges Inpatient E&M: 24900 Subs Hosp L2 01/04/24 1321 <Electronically signed by Bert Greenwood MD> Cosigner Signature (if applicable): CC: ~ Signed [facility] Work Phone: 1(849) 594-667104-07-2024 Progress note Author Anastacia Bonilla [facility] January 03, 2024 11:22am Note Date/Time January 03, 2024 9:13 am [facility] Medical Records Department [address] [place] [address] Progress Note 01/03/24 0908 MR#: [id number] Acct: [id number] Name: GRACIE BANUELOS Rep #:[id number] : 1965 58 From: Anastacia Bonilla MD PCP: Anat Easton, SERVICE COUNTER CASHIER-C Status:ADM IN Location: [place] [address] Subjective Subjective Patient seen and examined. She [...] 81.7 H, Lymph % (Auto) 9.6 L, [place] % (Auto) 6.9, Eos % (Auto) 0.6, [...] 91.3 H, Lymph % (Auto) 4.0 L, [place] % (Auto) 2.5, Eos % (Auto) 0.2, [...] pCO2 32.2 L ABG pO2 62 L Sergie Test Positive O2 Delivery Device Room Air [...] * # Charges/Coding Visit Charges Inpatient E&M: 82929 Subs Hosp L2 01/03/24 1122 <Electronically signed by Anastacia Bonilla MD> Anastacia Bonilla MD Cosigner Signature (if applicable): CC: ~ Signed [facility] Work Phone: 1(898) 473-953804-07-2024 Discharge summary Author Víctor Huerta [facility] January 02, 2024 11:55pm Note Date/Time January 02, 2024 7:21 pm [facility] Medical Records Department [address] [place] [address] Emergency Department Summary 01/02/24 MR#: [id number] Acct: [id number] Name: GRACIE BANUELOS Rep #:[id number] : 1965 58 From: Víctor Palumbo PCP: Anat Easton, SERVICE COUNTER CASHIER-C Status:ADM IN Location: MS3 XL793-3 HPI History of Present Illness Chief Complaint: [...] she has had that before with pneumonia. [facility] Medical History (Updated 01/02/24 @ 22:10 [...] DAILY BP 11/01/22 [History Last Taken Unknown] odquuj-asouqneu-cutyyco 24,000-76,000-120,000 unit capsule,delayed rel (Creon) 1cap PO [...] Allergy Other Verified 01/02/24 18:59 hydrocodone [From [place]] AdvReac Itching Verified 01/02/24 18:59 Family History [...] 81.7 H Lymph % (Auto) 9.6 L [place] % (Auto) 6.9 Eos % (Auto) 0.6 [...] 20:22 EDT Reading Location ID and State: [facility] / [place] Tel , Service support , Chest CTA 01/02/24 20:13 IMPRESSION: Normal CTA chest examination, without a demonstrated pulmonary embolism or arterial dissection. Right middle and upper lobe infiltrates consistent with pneumonia. Electronically Signed: Jeff Thakkar MD at 21:39 EDT Reading Location ID and State: [facility] / [place] Tel , Service support , EKG Initial [...] disease), Pneumonia Disposition Disposition: Acute Care Hospital [facility] What to do if you have Problems For any increased pain, shortness of breath, bleeding, nausea or vomiting, chestpain, or any unexpected problems, contact your Primary Care Provider. Call [facility] ([phone]) or report to the closest Emergency Room. Call 911 if necessary. 01/02/24 7428 <Electronically signed by Víctor Huerta DO> Cosigner Signature (if applicable): CC: SERVICE COUNTER CASHIER-C Anat Easton ~ Signed [facility] Work Phone: 1(100) 713-188904-07-2024 History and physical note Author Carin Meraz [facility] January 02, 2024 10:42pm Note Date/Time January 02, 2024 10:1 0pm [facility] Medical Records Department [address] [place] [address] H&P Exam - Hospitalist 01/02/242207 MR#: [id number] Acct: [id number] Name: GRACIE BANUELOS Rep #:[id number] : 1965 58 From: Carin Meraz MD PCP: CARMEN Salazar Status:ADM IN Location: [place] [address] HPI - General General Date of Admission: 01/02/24 Date of Service: 01/02/24 Chief Complaint: URI sxs, cough, dyspnea, worsening. HPI Narrative The patient is a 58 y/o F w/ PMHx: EtOH abuse, Tobacco use, COPD/Asthma w/ Chronic Hypoxic Respiratory Failure (PRN), HTN, HLD, Chronic anemia, Anxiety andDepression, Chronic pancreatitis associated with EtOH abuse who presents to the [facility] ED on 01/02/24 with history [...] 1, Rocephin 1 g IV x 1. [facility] Medical History Anemia Anxiety and depression Arthritis [...] DAILY BP 11/01/22 [History Last Taken Unknown] pbjecv-leemusrd-ggexjwz 24,000-76,000-120,000 unit capsule,delayed rel (Creon) 1cap PO [...] Allergy Other Verified 01/02/24 18:59 hydrocodone [From [place]] AdvReac Itching Verified 01/02/24 18:59 Family History [...] 81.7 H, Lymph % (Auto) 9.6 L, [place] % (Auto) 6.9, Eos % (Auto) 0.6, Baso % (Auto) 0.4, Absolute Neuts (auto)21.0 H, Absolute Lymphs (auto) 2.46, Nucleated RBC % 0, Differential Comment SCANNED, Diff Path Review January foll, Sodium 133 L, Potassium 3.9, Chloride [...] 20:22 EDT Reading Location ID and State: [facility] / [place] Tel , Service support , Chest CTA [...] with EtOH abuse who presents to the [facility] ED on 01/02/24 with history [...] Patient does not have healthcare power of bankruptcy attorney or living will in place but [...] Time: 16minutes. Charges/Coding Visit Charges Inpatient E&M: 70082 Init Hosp L3 Procedures Hospitalists Procedures: 72503 Advncd Care Plan 30 Min 01/02/24 2242 <Electronically signed by Carin Meraz MD> Cosigner Signature (if applicable): CC: CARMEN Coppola Older; Dr. Carin Meraz MD~ Signed [facility] Work Phone: 1(510) 320-917603-20-2024 History of Present illness Narrative* Candie Talley PA-C - 12/16/2023 2:31 PM EDT [...] Stage 3 severe COPD by GOLD classification ([facility]) 2018 Tobacco use greater than 30 years [...] 1 tablet by mouth daily at bedtime. heivym-roaogvgg-vquwfxy (CREON 24) 24,000-76,000 -120,000 unit delayed release [...] K86.0 Refills provided per pt request - PNTEZA-YXNXDXLL-VUOZTRF 24,000-76,000-120,000 UNIT CAPSULE,DELAYED REL - CBC + [...] plan. Candie Talley PA-C documented in this encounterMiddletown Hospital02-07-2024 Miscellaneous Notes* Telephone Encounter - Maribeth [...] - 11/03/2023 8:18 AM EST Spoke with [facility] and they were trying to reach Dr. Elliott's office. Transferred rx there. Maribeth Owen LPN * Telephone Encounter - Soila Easton APRN.CNP - 11/02/2023 4:28 PM EST PCP has not prescribed lorazepam for patient. Is she getting this elsewhere? If so she needs to follow up with that provider. Thank you Soila Easton APRN.COMPANY MARKER * Telephone Encounter - Gem Swartz - [...] Thank you. Gem Swartz. documented in this encounterMiddletown Hospital10-13-2023 Miscellaneous Notes* Telephone Encounter - Rissa Johnson OCCA - 07/10/2023 12:11 PM EDT TC to patient who verbalized understanding of providers message below. Patient asking for medication to go to [facility]'s pharmacy instead of [facility].Please advise. Thank you. BERNADETTE James * Telephone [...] ER follow up 07/20 documented in this encounterMiddletown Hospital09-15-2023 Miscellaneous Notes* Telephone Encounter - Mike Phan RN - 06/12/2023 2:38 PM EDT Patient has been identified by name and date of : Yes, Provider Satnam Date 06-12-23 Time 2:39 pm Pharmacy phones [...] you. Mike Phan RN documented in this encounterMiddletown Hospital09-13-2023 Miscellaneous Notes* Telephone Encounter - Susy [...] and advise. Tasneem Lock documented in this encounterMiddletown Hospital09-05-2023 Discharge summary Author Levar Handy [facility] June 02, 2023 4:56pm Note Date/Time June 02, 2023 4:56pm [facility] Medical Records Department [address] [place] [address] Emergency Department Summary 06/02/23 MR#: [id number] Acct: [id number] Name: GRACIE BANUELOS Rep #:[id number] : 1965 58 From: Levar Handy DO PCP: SOILA EASTON SERVICE COUNTER CASHIERSierraC Status:REG ER Location: ED HPI History of [...] oxygen and everything she needs at home. [facility] Medical History Abdominal pain Alcohol abuse [...] Q6H antibiotic 11/01/22 [History Last Taken Unknown] stmrne-dfxprtyn-gfelvpe 24,000-76,000-120,000 unit capsule,delayed rel (Creon) 1cap PO [...] Allergy Hives Verified 11/01/22 19:37 hydrocodone [From [place]] AdvReac Itching Verified 11/01/22 19:37 Family History [...] % (Auto) 63.1 Lymph % (Auto) 25.1 [place] % (Auto) 6.4 Eos % (Auto) 3.6 [...] your Primary Care Provider. Call [facility] ([phone]) or report to the closest Emergency Room. Call 911 if necessary. 06/02/23 1656 <Electronically signed by Levar Handy DO> Cosigner Signature (if applicable): CC: CARMEN EASTON ~ Signed [facility] Work Phone: 1(430) 380-606908-21-2023 Miscellaneous Notes* Telephone Encounter - Eva Martines RN - 05/18/2023 1:32 PM EDT Last Office Visit: 04/12/2023 Future Office Visit: None Requested Prescriptions Pending Prescriptions Disp Refills lisinopril (ZESTRIL) 10 mg tablet 30 tablet 11 Sig: Take 1 tablet by mouth once daily. documented in this encounterMiddletown Hospital07-19-2023 Instructions* Patient Instructions* Candie Talley PA-C - 04/15/2023 1:24 PM EDT [facility] check [facility] to see if it's safe to take Cyclobenzaprine (Flexeril)at night with Geodon and Mirtazapine (Remeron) documented in this encounterMiddletown Hospital07-19-2023 History of Present illness Narrative* Candie [...] airways disease (HCC) Alcohol dependence in remission ([facility]) 07/10/2015 Alcohol use disorder 08/27/2017 Alcohol-induced pancreatitis Alcoholic hepatitis 05/18/2012 Alcoholic liver disease (HCC) 11/16/2013 Anemia Anxiety with depression Asthma Chronic hypoxemic respiratory failure (HCC) COPD (chronic obstructive pulmonary disease) ([facility]) 05/25/2012 DDD (degenerative disc disease), cervical 09/03/2018 [...] to infectious organism 2017 Severe protein-calorie malnutrition ([facility]) 01/07/2019 Stage 3 severe COPD by GOLD classification ([facility]) 2018 Tobacco use greater than 30 years [...] 1 tablet by mouth daily at bedtime. uxruzb-ruzodypz-fiuysmd (CREON 24) 24,000-76,000 -120,000 unit delayed release [...] Take 1 tablet by mouth once daily. udnakkeuohi-eohapncmf-rsdzjpyt (TRELEGY ELLIPTA) 100-62.5-25 mcg inhalation powder DAILY [...] plan. Candie Talley PA-C documented in this encounterMiddletown Hospital06-27-2023 Miscellaneous Notes* Telephone Encounter - Maribeth [...] you. Maribeth Owen LPN documented in this encounterMiddletown Hospital04-05-2023 Miscellaneous Notes* Telephone Encounter - Soila Easton APRN.IGOR - 12/31/2022 1:25 PM EDT Prescription refilled. [...] problem. Efren Thao LPN documented in this encounterMiddletown Hospital03-03-2023 History of Present illness Narrative* Soila [...] airways disease (HCC) Alcohol dependence in remission ([facility]) 07/10/2015 Alcohol use disorder 08/27/2017 Alcohol-induced pancreatitis Alcoholic hepatitis 05/18/2012 Alcoholic liver disease ([facility]) 11/16/2013 Anemia Anxiety with depression Asthma Chronic hypoxemic respiratory failure ([facility]) COPD (chronic obstructive pulmonary disease) ([facility]) 05/25/2012 DDD (degenerative disc disease), cervical 09/03/2018 [...] Stage 3 severe COPD by GOLD classification ([facility]) 2018 Tobacco use greater than 30 years [...] Puffs as instructed four times dailyas needed. dzddlnhkhrs-jmqcubexx-cfnzhfqs (TRELEGY ELLIPTA) 100-62.5-25 mcg inhalation powder DAILY avcnic-rhmjgcpd-zbdzobz (CREON 24) 24,000-76,000 -120,000 unit delayed release [...] plan. Soila Easton APRN.IGOR documented in this encounterMiddletown Hospital03-02-2023 Miscellaneous Notes* Telephone Encounter - Mihaela [...] vitamin levels are still to be back RegardsMisbah MD, MD 11/27/2022 2:51 PM EST Please pursue consult with neuro as the xr of the back did not really show any major issues Misbah Cisneros MD documented in this encounterMiddletown Hospital03-02-2023 Miscellaneous Notes* Telephone Encounter - Mihaela [...] to find transportation for EMG scheduled in [place]. Patient is requesting to have EMG done at [facility]. Order faxed per patient request. Referral placed. EMG not cancelled yet incase unable to schedule with [facility]. Janene Grimm RN documented in this encounterMiddletown Hospital03-01-2023 Instructions* Patient Instructions* Mariluz Verduzco PA-C [...] Please reach out with any questions. Rosario [facility] address: [address] [place] [address] Dr. [place]once [place], [place] [address] documented in this encounterMiddletown Hospital03-01-2023 History of Present illness Narrative* Mariluz Verduzco PA-C - 11/26/2022 1:16 PM EST Images from the original note were not included. Neurology Outpatient Clinic Date: November 26, 2022 Patient Name: Gracie Banuelos Referring physician: Misbah Elkins [address] [facility] [address] Consult requested for paresthesias by Dr. Elkins. Recommendations will be communicated via shared medical record or US mail. Primary physician: [place] [address] Reason for Evaluation: Paresthesias Subjective HPI Gracie [...] didhave 1 incident of bowel incontinence on New Year's Delia, has not happened since. Patient denies [...] by mouth once daily. 30 tablet 11 fubfelelxia-hfyolhkrk-mamljcpj (TRELEGY ELLIPTA) 100-62.5-25 mcg inhalation powder DAILY tbahwg-clbjbsad-xaglbwg (CREON 24) 24,000-76,000 -120,000 unit delayed release [...] pancreatitis Alcoholic hepatitis 05/18/2012 Alcoholic liver disease ([facility]) 11/16/2013 Anemia Anxiety with depression Asthma Chronic hypoxemic respiratory failure ([facility]) COPD (chronic obstructive pulmonary disease) ([facility]) 05/25/2012 DDD (degenerative disc disease), cervical 09/03/2018 [...] Stage 3 severe COPD by GOLD classification ([facility]) 2018 Tobacco use greater than 30 years [...] Negative Coordination: finger-to- nose-finger intact bilaterally and aeiv-fq-msha intact bilaterally. Gait: Patient's gait is normal [...] which included preparing to see the patient, bcpn-fx-qonh patient care, completing clinical documentation, obtaining and/or reviewing separately obtained history, performing a medically appropriate examination, counseling and educating the pat ient/family/caregiver, and ordering medications, tests, or procedures. Mariluz Verduzco PA-C [facility] This document has been created with the use of voice recognition technology. It may contain inaccuracies: (e.g. misspellings, inaccurate syntax or word sense) that have escaped review. documented in this encounterMiddletown Hospital02-28-2023 History of Present illness Narrative* Misbah [...] airways disease (HCC) Alcohol dependence in remission ([facility]) 07/10/2015 Alcohol use disorder 08/27/2017 Alcohol-induced pancreatitis Alcoholic hepatitis 05/18/2012 Alcoholic liver disease ([facility]) 11/16/2013 Anemia Anxiety with depression Asthma Chronic hypoxemic respiratory failure ([facility]) COPD (chronic obstructive pulmonary disease) ([facility]) 05/25/2012 DDD (degenerative disc disease), cervical 09/03/2018 [...] Stage 3 severe COPD by GOLD classification ([facility]) 2018 Tobacco use greater than 30 years [...] inhaler lisinopril (ZESTRIL, PRINIVIL) 10 mg tablet ihqrmcraobb-sghvcattp-awvssgtp (TRELEGY ELLIPTA) 100-62.5-25 mcg inhalation powder dkuccz-lbprlunk-loivlhy (CREON 24) 24,000-76,000 -120,000 unit delayed release [...] medication. Misbah Elkins MD documented [facility]23 Nurse Note* Eda Moore LPN - 11/25/2022 9:53 AM EST and had put a hold on eye surgery for now. Patient is going to [facility] on December 03 for possible surgery documented in this encounterM[facility]own [facility]02-15-[facility]23 Miscellaneous Notes* Telephone Encounter - Eileen [...] its not really worsening. documented in this encounterMiddletown Hospital02-14-2023 History of Present illness Narrative* Sonja Victor, [...] 11, 2022 4:49 PM documented in this encounterMiddletown Hospital02-14-2023 History of Present illness Narrative* Misbah [...] regularly. Was admitted with ocular cellulitis at [facility] and was transferred to [facility] and for oculoplastics. No interventions were made by occulopastics as she got better on abx on her own In the [facility] she had an episode of respiratory [...] airways disease (HCC) Alcohol dependence in remission ([facility]) 07/10/2015 Alcohol use disorder 08/27/2017 Alcohol-induced pancreatitis [...] Stage 3 severe COPD by GOLD classification ([facility]) 2018 Tobacco use greater than 30 years [...] inhaler lisinopril (ZESTRIL, PRINIVIL) 10 mg tablet otrzmsksgsl-fygiuggpb-hbnoalnk (TRELEGY ELLIPTA) 100-62.5-25 mcg inhalation powder piistt-kyepxvar-qhgtrir (CREON 24) 24,000-76,000 -120,000 unit delayed release [...] refill. ASSESSMENT/PLAN: 1. CHUY (acute kidney injury) ([facility]) - ICD9: 584.9, ICD10: N17.9 (primary diagnosis) - BASIC METABOLIC PNL 2. Chronic obstructive pulmonary disease, unspecified COPD type ([facility]) - ICD9: 496, ICD10: J44.9 - XR [...] K86.0 Misbah Elkins MD documented in this encounterMiddletown Hospital02-09-2023 NoteTeaching Physician Note: I have seen and examined the patient and supervised the procedures performed. I personally obtained the ochoa portions of the history and the ophthalmologic exam. I reviewed the resident's documentation and discussed the patient's history and examination with the resident. I agree with the resident's decision making as documented in the resident's note. Yumiko Guerin MDSelect [facility] [place]02[facility]09-[address] Bonilla [facility] November 06, 2022 3:03pm Note Date/Time November 06, 2022 9 :43am [facility] Medical Records Department [address] [place] [address] Progress Note - Hospitalist 11/06/22939 MR#: [id number] Acct: [id number] Name: GRACIE BANUELOS Rep #:[id number] : 1965 57 From: Anastacia Bonilla MD PCP: CARMEN STAHL Status:ADM IN Location: [place] [address] Reason for Visit Reason for Visit: Diagnoses [...] 74.3 H, Lymph % (Auto) 11.1 L, [place] % (Auto) 9.9, Eos % (Auto) 1.6, [...] prophylaxis: heparin Charges/Coding Visit Charges Inpatient E&M: 88915 Subs Hosp L2 11/06/22 1503 <Electronically signed by Anastacia Bonilla MD> Cosigner Signature (if applicable): CC: ~ Signed [facility] Work Phone: [phone] Iverson [facility] November 06, 2022 2:28pm Note Date/Time November 06, 2022 2 :28pm [facility] Medical Records Department [address] [place] [address] Progress Note - Nephrology 11/06/22 1427 MR#: [id number] Acct: [id number] Name: GRACIE BANUELOS Rep #:[id number] : 1965 57 From: Courtney sanders MD PCP: SOILA EASTON, SERVICE COUNTER CASHIER-C Status:ADM IN Location: [place] [address] 1 Subjective Subjective No new complaints. Breathing looks [...] 74.3 H, Lymph % (Auto) 11.1 L, [place] % (Auto) 9.9, Eos % (Auto) 1.6, [...] Acute renal failure. Prior to admission at [facility] and at the time ofadmission at [facility] creatinine was normal. She was subsequently transferred to [facility]. Discharge creatinine was 1.5. Urine analysis over [...] Cosigner Signature (if applicable): CC: ~ Signed [facility] Work Phone: [phone]) 439-498102-09-2023 History of Present illness Narrative* Yumiko Guerin [...] Seen with Dr. Guerin documented in this [id number] Sebastian [facility] November 06, 2022 8:41am Note Date/Time November 06, 2022 5 :54am [facility] Medical Records Department [address] [place] [address] Progress Note - Lactation Coordinator 11/06/22 0553 MR#: [id number] Acct: [id number] Name: GRACIE BANUELOS Rep #:[id number] : 1965 57 From: Gonzalo Sebastian DO PCP: SOILA EASTON SERVICE COUNTER CASHIER-C Status:ADM IN Location: ICU CVICU20 3-1 Assessment [...] medicationsas indicated. This note was generated with Make YES! Happen dictation software. It may contain incorrectwords, spelling, [...] 74.3 H, Lymph % (Auto) 11.1 L, [place] % (Auto) 9.9, Eos % (Auto) 1.6, [...] Psych cooperative Charges/Coding Visit Charges Inpatient E&M: 92236 Subs Hosp L2 11/06/22 0841 <Electronically signed by Gonzalo Sebastian DO> Cosigner Signature (if applicable): CC: ~ Signed [facility] Work Phone: [phone] Progress note Author [facility] November 05, 2022 4:09pm Note Date/Time November 05, 2022 1 2:55pm [facility] Medical Records Department [address] [place] [address] Progress Note - Hospitalist 11/05/22 1252 MR#: [id number] Acct: [id number] Name: GRACIE BANUELOS Rep #:[id number] : 1965 57 From: Anastacia Bonilla MD PCP: SOILA EASTON SERVICE COUNTER CASHIER-C Status:ADM IN Location: ICU CVICU20 3-1 Reason [...] Clarity Clear, Urine pH 6.0, Ur Specific [place] 1.015, Urine Protein 30 H, Urine Glucose [...] 85.4 H, Lymph % (Auto) 4.8 L, [place] % (Auto) 4.4, Eos % (Auto) 0.6, [...] prophylaxis: heparin Charges/Coding Visit Charges Inpatient E&M: 56080 Subs Hosp L2 11/05/22 1609 <Electronically signed by Anastacia Bonilla MD> Cosigner Signature (if applicable): CC: ~ Signed [facility] Work Phone: [phone] Consult note Author [facility] November 05, 2022 4:07pm Note Date/Time November 05, 2022 9 :45[facility] Medical Records Department [address] [facility] [place] [address] Pharmacokinetic/Renal -Consult 11/05/22 09 MR#: [id number] Acct: [id number] Name: GRACIE BANUELOS Salvatore Rep #:[id number] : 1965 57 From: Donn Wilson PCP: SOILA EASTON, SERVICE COUNTER CASHIER-C Status:ADM IN Y Location: ICU CVICU20 3-1 [...] Date Anastacia Bonilla MD CC: ~ Signed [facility] Work Phone: [phone] 445-816502-08-[address] Iverson [facility] November 05, 2022 10:42am Note Date/Time November 05, 2022 1 0:42am [facility] Medical Records Department [address] [place] [address] Progress Note - Nephrology 11/05/22 1037 MR#: [id number] Acct: [id number] Name: GRACIE BANUELOS Rep #:[id number] : 1965 57 From: Courtney sanders MD PCP: SOILA EASTON, SERVICE COUNTER CASHIER-C Status:ADM IN Location: ICU CVICU20 3-1 Subjective [...] Clarity Clear, Urine pH 6.0, Ur Specific [place] 1.015, Urine Protein 30 H, Urine Glucose [...] 85.4 H, Lymph % (Auto) 4.8 L, [place] % (Auto) 4.4, Eos % (Auto) 0.6, [...] Acute renal failure. Prior to admission at [facility] and at the time ofadmission at [facility] creatinine was normal. She was subsequently transferred to [facility]. Discharge creatinine was 1.5. Urine analysis over [...] Cosigner Signature (if applicable): CC: ~ Signed [facility] Work Phone: [phone] Sebastian [facility] November 05, 2022 9:58am Note Date/Time November 05, 2022 5 :52am [facility] Medical Records Department [address] [place] [address] Progress Note - Lactation Coordinator 11/05/22 0551 MR#: [id number] Acct: [id number] Name: GRACIE BANUELOS Rep #:[id number] : 1965 57 From: Gonzalo Sebastian DO PCP: SOILA EASTON, SERVICE COUNTER CASHIER-C Status:ADM IN Location: ICU CVICU20 3-1 Assessment [...] medicationsas indicated. This note was generated with Make YES! Happen dictation software. It may contain incorrectwords, spelling, [...] Clarity Clear, Urine pH 6.0, Ur Specific [place] 1.015, Urine Protein 30 H, Urine Glucose [...] 85.4 H, Lymph % (Auto) 4.8 L, [place] % (Auto) 4.4, Eos % (Auto) 0.6, [...] Behavior: restless Charges/Coding Visit Charges Inpatient E&M: 39674 Subs Hosp L3 11/05/22 0958 <Electronically signed by Gonzalo Sebastian DO> Cosigner Signature (if applicable): CC: ~ Signed [facility] Work Phone: [phone] Bonilla [facility] November 05, 2022 7:20am Note Date/Time November 04, 2022 9 :22pm [facility] Medical Records Department [address] [place] [address] Pharmacokinetic/Renal -Consult 11/04/222119 MR#: [id number] Acct: [id number] Name: GRACIE BANUELOS Rep #:[id number] : 1965 57 From: Sudhir [facility] PCP: SOILA EASTON, SERVICE COUNTER CASHIER-C Status:ADM IN Y Location: ICU CVICU20 3-1 [...] 0800 11/04/222121 <Electronically signed by Sudhir Cody [facility]> Date _ Sudhir Stanton [facility] 11/05/22 0720 <Electronically signed by Anastacia cisneros MD> Cosigner Signature (if applicable): Date Anastacia Bonilla MD CC: ~ Signed [facility] Work Phone: [phone] Progress note Author [facility] November 04, 2022 3:49pm Note Date/Time November 04, 2022 1 0:22[facility] Medical Records Department [address] [place] [address] Progress Note - Hospitalist 11/04/22 1020 MR#: [id number] Acct: [id number] Name: GRACIE BANUELOS Rep #:[id number] : 1965 57 From: Anastacia Bonilla MD PCP: SOILA EASTON, SERVICE COUNTER CASHIER-C Status:ADM IN Location: ICU CVICU20 3-1 Subjective [...] 81.2 H, Lymph % (Auto) 5.6 L, [place] % (Auto) 4.6, Eos % (Auto) 5.9 [...] prophylaxis: lovenox Charges/Coding Visit Charges Inpatient E&M: 75278 Subs Hosp L3 Reason for Visit Reason for Visit: Diagnoses Chronic obstructive pulmonary disease, unspecified (11/01/22) Acute kidney failure, unspecified (11/01/22) Nausea with vomiting, unspecified (11/01/22) Diarrhea, unspecified (11/01/22) 11/04/22 7603 <Electronically signed by Anastacia Bonilla MD> Cosigner Signature (if applicable): CC: ~ Signed [facility] Work Phone: [phone] Iverson [facility] November 04, 2022 11:44am Note Date/Time November 04, 2022 1 1:44am [facility] Medical Records Department [address] [place] [address] Consultation - Nephrology 11/04/22 1139 MR#: [id number] Acct: [id number] Name: GRACIE BANUELOS Rep #:[id number] : 1965 57 From: Courtney sanders MD PCP: SOILA EASTON, SERVICE COUNTER CASHIER-C Status:ADM IN Location: ICU CVICU20 3-1 Assessment & Plan Assessment/Plan (1) Acute kidney injury: PLAN: Acute renal failure. Prior to admission at [facility], at the time of admission at [facility] creatinine was normal. She was subsequently transferred[facility]. Discharge creatinine was 1.5. Urine analysis over [...] [facility] Consult Data Date of Consult: 11/04/22 HPI Narrative Reason for Consultation: Acute renal failure HPI Narrative: GRACIE BANUELOS, is a 57 F who presents to the hospital with severe diarrhea. Nephrology on consultation for acute renal failure. No prior kidney disease. Baseline creatinine was normal. She was initially admitted to [facility] followed by [facility]. Admission diagnosis was orbital cellulitis. Was seen by ophthalmology at [facility] as well. Admission creatinine was normal. Discharge [...] increased significantly. Getting a CT chest abdomen. [facility] Medical History Abdominal pain Alcohol abuse Alcoholic [...] Q6H antibiotic 11/01/22 [History Last Taken Unknown] zdwfcv-pkibcneb-rsrjxzk 24,000-76,000-120,000 unit capsule,delayed rel (Creon) 1cap PO [...] Allergy Hives Verified 11/01/22 19:37 hydrocodone [From [place]] AdvReac Itching Verified 11/01/22 19:37 Family History [...] 81.2 H, Lymph % (Auto) 5.6 L, [place] % (Auto) 4.6, Eos % (Auto) 5.9 [...] Iverson MD> Cosigner Signature (if applicable): CC: SERVICE COUNTER CASHIERSierraC Ani Eduardo; SERVICE COUNTER CASHIER-C SOIAL EASTON; Dr. Ciarra Rsos MD; Dr. Freddie Perdue MD; Dr. Gonzalo Sebastian DO; Dr. Courtney Iverson MD; Dr. Olivier Coffman MD; Dr. Lisa Ochoa MD; Dr. Dieter Harrison MD~ Signed [facility] Work Phone: [phone] Sebastian [facility] November 04, 2022 10:07am Note Date/Time November 04, 2022 7 :12am [facility] Medical Records Department [address] [place] [address] Progress Note - Lactation Coordinator 11/04/2209 MR#: [id number] Acct: [id number] Name: GRACIE BANUELOS Rep #:[id number] : 1965 57 From: Gonzalo Sebastian DO PCP: SOILA EASTON, SERVICE COUNTER CASHIER-C Status:ADM IN Location: ICU CVICU20 3-1 Assessment [...] medicationsas indicated. This note was generated with Semblee_ation software. It may contain incorrectwords, spelling, and [...] 81.2 H, Lymph % (Auto) 5.6 L, [place] % (Auto) 4.6, Eos % (Auto) 5.9 [...] affect normal Charges/Coding Visit Charges Inpatient E&M: 71301 Subs Hosp L2 11/04/22 1007 <Electronically signed by Gonzalo Sebastian DO> Cosigner Signature (if applicable): CC: ~ Signed [facility] Work Phone: [phone] Bonilla [facility] November 03, 2022 3:59pm Note Date/Time November 03, 2022 3 :06pm [facility] Medical Records Department [address] [place] [address] Progress Note - Hospitalist 11/03/22 1501 MR#: [id number] Acct: [id number] Name: GRACIE BANUELOS Rep #:[id number] : 1965 57 From: Anastacia Bonilla MD PCP: SOILA EASTON, SERVICE COUNTER CASHIER-C Status:ADM IN Location: ICU CVICU20 3-1 Subjective [...] 74.5 H, Lymph % (Auto) 11.6 L, [place] % (Auto) 6.9, Eos % (Auto) 5.0, [...] 94.5 H, Lymph % (Auto) 2.2 L, [place] % (Auto) 1.9, Eos % (Auto) 0.1, [...] 20:11 EST Reading Location ID and State: [facility] / [place] , Service support , Rhythm Strip Rhythm [...] prophylaxis: lovenox Charges/Coding Visit Charges Inpatient E&M: 07611 Subs Hosp L3 Reason for Visit Reason for Visit: Diagnoses Chronic obstructive pulmonary disease, unspecified (11/01/22) Acute kidney failure, unspecified (11/01/22) Diarrhea, unspecified (11/01/22) 11/03/22 1559 <Electronically signed by Anastacia Bonilla MD> Cosigner Signature (if applicable): CC: ~ Signed [facility] Work Phone: [phone] 284-451902-06-[address] Sebastian [facility] November 03, 2022 8:27am Note Date/Time November 03, 2022 7 :12am [facility] Medical Records Department [address] [facility] [place] [address] Consultation - Lactation Coordinator 11/03/22709 MR#: [id number] Acct: [id number] Name: GRACIE BANUELOS Rep #:[id number] : 1965 57 From: Gonzalo Sebastian DO PCP: KEN STAHLC Status:ADM IN Location: ICU CVICU20 3-1 Assessment [...] medicationsas indicated. This note was generated with Semblee_ation software. It may contain incorrectwords, spelling, and [...] medication. The patient was recently admitted in [place] for periorbital cellulitis. The patient reported to [...] with IV Solu-Medrol, Ativan and aerosol treatments. [facility] Medical History Abdominal pain Alcohol abuse Alcoholic [...] Q6H antibiotic 11/01/22 [History Last Taken Unknown] nlosgu-ptjozgec-hrhbutp 24,000-76,000-120,000 unit capsule,delayed rel (Creon) 1cap PO [...] Allergy Hives Verified 11/01/22 19:37 hydrocodone [From [place]] AdvReac Itching Verified 11/01/22 19:37 Family History [...] 74.5 H, Lymph % (Auto) 11.6 L, [place] % (Auto) 6.9, Eos % (Auto) 5.0, [...] 94.5 H, Lymph % (Auto) 2.2 L, [place] % (Auto) 1.9, Eos % (Auto) 0.1, [...] 20:11 EST Reading Location ID and State: [facility] / [place] , Service support , Charges/Coding Visit Charges Inpatient E&M: 89156 Init Hosp L3 11/03/22 0827 <Electronically signed by Gonzalo Sebastian DO> Cosigner Signature (if applicable): CC: SERVICE COUNTER CASHIERMiriam Eduardo; SERVICE COUNTER CASHIERMiriam EASTON; Dr. Ciarra Ross MD; Dr. Freddie Perdue MD; Dr. Gonzalo Sebastian DO; Dr. Olivier Coffman MD; Dr. Lisa Ochoa MD; Dr. Dieter Harrison MD~ Signed [facility] Work Phone: [phone] Ross [facility] November 02, 2022 9:51pm Note Date/Time November 02, 2022 9 :10pm [facility] Medical Records Department [address] [place] [address] Progress Note 11/02/222107 MR#: [id number] Acct: [id number] Name: BANUELOSFERNIEGRACIE S Rep #:[id number] : 1965 57 From: Ciarra Ross MD PCP: SOILA EASTON, SERVICE COUNTER CASHIER-C Status:ADM IN Location: ICU CVICU20 3-1 Progress [...] Cosigner Signature (if applicable): CC: ~ Signed [facility] Work Phone: [phone] Fatima [facility] November 02, 2022 8:23pm Note Date/Time November 02, 2022 8 :19pm [facility] Medical Records Department [address] [place] [address] Progress Note - Hospitalist 11/02/222014 MR#: [id number] Acct: [id number] Name: GRACIE BANUELOS Salvatore Rep #:[id number] : 1965 57 From: Mahamed Fatima DO PCP: SOILA EASTON SERVICE COUNTER CASHIER-C Status:ADM IN Location: ICU CVICU20 3-1 Hospitalist [...] of critical care time. Procedures Hospitalists Procedures: 17557 Critial Care 1st Hr 11/02/222022 <Electronically signed by Mahamed Fatima DO> Cosigner Signature (if applicable): CC: ~ Signed [facility] Work Phone: [phone] 291-959402-05-[address] Ochoa [facility] November 02, 2022 12:07pm Note Date/Time November 02, 2022 1 2:07pm [facility] Medical Records Department [address] [place] [address] Progress Note - Hospitalist 11/02/22 1156 MR#: [id number] Acct: [id number] Name: GRACIE BANUELOS Rep #:[id number] : 1965 57 From: Lisa Ochoa MD PCP: SOILA EASTON, SERVICE COUNTER CASHIER-C Status:ADM IN Location: [place] [address] Subjective Subjective Reports still feeling little dehydrated [...] % (Auto) 66.4, Lymph % (Auto) 16.8L, [place] % (Auto) 11.3 H, Eos % (Auto) [...] (Auto) 62.9, Lymph % (Auto) 17.1 L, [place] % (Auto) 13.2 H, Eos % (Auto) [...] alcoholic hepatitis, COPD, GERD who presented to [facility] 11/01 with poor urinary output and flank pain for 1 day. She was recently discharged from [facility] after being transferred from [facility] with right orbital cellulitis for acute [...] documentation, 30minutes Charges/Coding Visit Charges Inpatient E&M: 10126 Subs Hosp L2 11/02/22 1207 <Electronically signed by Lisa Ochoa MD> Cosigner Signature (if applicable): CC: ~ Signed [facility] Work Phone: [phone] 349-859002-05-2023 History and physical note Author Dr. Ross [facility] November 02, 2022 1:42am Note Date/Time November 01, 2022 1 0:21pm [facility] Medical Records Department [address] [place] [address] H&P Exam - Hospitalist 11/01/221 MR#: [id number] Acct: [id number] Name: GRACIE BANUELOS Rep #:[id number] : 1965 57 From: Ciarra Ross MD PCP: SOILA EASTON, SERVICE COUNTER CASHIER-C Status:ADM IN Location: [place] DJ783-2 HPI - General General Date of Admission: 11/01/22 Date of Service: 11/01/22 Chief Complaint: Poor urine output, bilateral flank pain- 1 day HPI Narrative Cristina BANUELOS, is a 57 F who presents the above. Patient was recently discharged from [facility] after being transferred from [facility] with right orbital cellulitis for acute ophthalmology evaluation. Over the course of[facility] in [facility], patient developed severe diarrhea with resultantAKI. [...] Q6H antibiotic 11/01/22 [History Last Taken Unknown] aaoodp-zpresztt-cygxuhu 24,000-76,000-120,000 unit capsule,delayed rel (Creon) 1cap PO [...] Allergy Hives Verified 11/01/22 19:37 hydrocodone [From [place]] AdvReac Itching Verified 11/01/22 19:37 Family History [...] diarrhea Patient with recent CHUY from hospitalization [facility], reportedly improved Admitted creatinine of 2.05 Will [...] the bedside. Charges/Coding Visit Charges Inpatient E&M: 52180 Init Hosp L3 11/02/22 0142 <Electronically signed by Ciarra Ross MD> Cosigner Signature (if applicable): CC: CARMEN EASTON; Dr. Ciarra Ross MD~ Signed [facility] Work Phone: [phone] Tang [facility] November 01, 2022 10:20pm Note Date/Time November 01, 2022 8 :27pm [facility] Medical Records Department [address] [place] [address] Emergency Department Summary 11/01/22 MR#: [id number] Acct: [id number] Name: GRACIE BANUELOS Rep #:[id number] : 1965 57 From: Edmund Tang MD PCP: SOILA EASTON, SERVICE COUNTER CASHIER-C Status:REG ER Location: ED HPI History of [...] for 3 days. Patient was transferred to [facility]. Records were reviewed. Patient did [...] Anxiety 04/19/19 [History Last Taken 06/10/21 21:00] dqixaq-dukonkcj-euqxvcj 24,000-76,000-120,000 unit capsule,delayed rel 3 ea PO [...] Date / Time Penicillins Allergy Hives Verified 02/04/23 19:37 hydrocodone [From [place]] AdvReac Itching Verified 11/01/22 19:37 Family History [...] Acute hyponatremia Disposition Disposition: Acute Care Hospital [facility] What to do if you have Problems For any increased pain, shortness of breath, bleeding, nausea or vomiting, chestpain, or any unexpected problems, contact your Primary Care Provider. Call [facility] ([phone]) or report to the closest Emergency Room. Call 911 if necessary. 11/01/222219 <Electronically signed by Edmund Tang MD> Cosigner Signature (if applicable): CC: CARMEN EASTON ~ Signed [facility] Work Phone: [phone] 416-897802-03-2023 History of Present illness Narrative* Misbah Elkins MD - 10/31/2022 11:46 AM EST Reason for Visit Patient presents with: Hospital F/U: follow up from [facility] and , right eye cellulitis mass behind eye and mass found in lungs per patient Gracie Banuelos is a 57 year old female who presents here today for Above Complaints.. Health Maintenance MAMMOGRAM HPI Was admitted with ocular cellulitis at [facility] and was transferred to [facility] and for oculopastics Prior to [...] strained her self when she went to [facility]. Lisinopril was held. Cont the hold [...] airways disease (HCC) Alcohol dependence in remission ([facility]) 07/10/2015 Alcohol use disorder 08/27/2017 Alcohol-induced pancreatitis Alcoholic hepatitis 05/18/2012 Alcoholic liver disease (HCC) 11/16/2013 Anemia Anxiety with depression Asthma Chronic hypoxemic respiratory failure (HCC) COPD (chronic obstructive pulmonary disease) ([facility]) 05/25/2012 DDD (degenerative disc disease), cervical 09/03/2018 [...] Stage 3 severe COPD by GOLD classification ([facility]) 2018 Tobacco use greater than 30 years [...] inhaler lisinopril (ZESTRIL, PRINIVIL) 10 mg tablet uulchgtkwts-qukspzfmh-xtupputl (TRELEGY ELLIPTA) 100-62.5-25 mcg inhalation powder kikxlh-stpvbagx-bedcgky (CREON 24) 24,000-76,000 -120,000 unit delayed release [...] tobacco. Misbah Elkins MD documented in this encounterMidd[facility]own [facility]02-01-2023 NoteSend Summary: Discharge Summary Providers: Provider RoleProvider Name ReferringCorrect Info, Needed Jessica Hammond Joy A PrimaryFree, Text Entry Note Recipients: Tai Peoples MD Correct Info, NeededMD Free, Text Entry, Soila Devi, SALES MARKETING-COMPANY MARKER Jessica Ellis MD Discharge: Summary: Admission Date: .23-Oct-2022 23:56:00 Discharge Date: 29-Oct-2022 Attending Physician at Discharge: Jessica Ellis Admission Reason: Preseptal Cellulitis(1) Final Discharge Diagnoses: Preseptal cellulitis of right eye Procedures: none Condition at Discharge: Fair Disposition at Discharge: .Home Vital Signs: T PRBPMAPSpO2 Value36.34068966/6397% Date/Time10/29 5: 5:122 5:122 5:122/ 5:12 Range(36.1C - 39C ) [...] vs. infiltrative mass. Vanc/zosyn were started at [facility]. Oculoplastic were consulted and there [...] with activity Additional Orders: Additional Instructions: Dear Max Vin, You presented to us as transfer from [facility] for a possible biopsy of the right [...] Care Provider Scheduled Date/Time: 15-Dec-2022 16:00 Location: [address] [place] [address], [place] [phone] fax Follow-Up Appointment 02: Physician/Dept/Service: Ophthalmology: Dr Ortega Scheduled Date/Time: 03-Dec-2022 15:30 Location: [facility] [address] , [address] [place] [address] Follow-Up Appointment 03: Physicia (more content not included)...[facility]01-31-2023 NoteThis report has been cancelled.[facility]01-27-2023 Note History of Present Illness: /Lactating: Are You no Are You Currently Breastfeedingno Admission Reason: Preseptal Cellulitis HPI: She is a 57 year old woman with history of COPD (GOLD Stage 3, FEV1 55%), anxiety, HTN, DLD who is presenting as a transfer to [facility] from [facility] for further management of preseptal cellulitis vs. [...] she presented to the ER initially in [place]. A brief summary of her course prior to arrival to [facility] is seen in the two paragraphs below. On or about 10/19 she had pain in her right eye that worsened to the point she was unable to tolerate it at home with ibuprofen so she presented to the [place] Emergency Department. At that time she had a CT scan of her orbits which showed right orbital preseptal and orbital cellulitis without evidence of orbital compartment syndrome. She had elevated WBC count to 13.9 with neutrophilic predominance. She had CRP elevated to 42.6 and ESR of 75 mm/h. She was given one dose of clindamycin in the [place] ER. On 10/20 she arrived at the [facility] and evaluated by ophthalmology who [...] On 10/22 ophthalmology recommended transfer to or [facility] for oculoplastics care given need for potential cut-down biopsy which was unable to be accommodated at [facility]. When I spoke with the patient her biggest concerns were continued pain of the right eye and surrounding tissue as well as the possibility that this could be a cancer causing her symptoms. Regarding the pain, it is 9/10 currently and radiates from the right eyelid down to her cheek and into her temples. It is exacerbated with movement, especially the transit from [facility]. It was controlled at OSH [...] 45mg QHS Pertinent Labs/Imaging at [facility]/[place]: ESR/CRP elevated to 75 and 42 respectively. Blood Cx NGTD at [place] on arrival Rheumatoid Factor negative C. Diff [...] conjunctivitis. There is enha (more content not included)...[facility]01-27-2023 NoteDISCHARGE SUMMARY PATIENT INFORMATION: Name: Gracie Banuelos Date of Admission: 10/20/2022 8:44 AM Discharge Date: 10/23/2022 : 1965 57 year old Admitting Physician: Robby Bush MD PCP: No primary care provider on file. Discharge Physician: ROBBY BUSH TRANSFERRED TO [facility] COURSE AND OUTCOME: Gracie Banuelos is a 57 year old year old female who presented to [facility] on 10/20/2022 8:44 AM. Ms. Banuelos is a 57 yof with COPD, active tobacco abuse, anxiety, HTN, sent from OSH [[place] ED] for evaluation of right eye swelling, erythema and pain with movement. Infectious diseases, ENT, and Ophthalmology is consulted and she was started on empiric abx. MRI orbit Abnormal infiltration throughout the right retroantral and extraconal fat as well as the pterygopalatine fossa and diffusely throughout the right graduate intern space with asymmetry of the muscles of mastication. ENT performed nasal endoscopy - without signs of fungal infection. ID recommended to hold antifungals Ophthalmology strongly recommended orbital biopsy to r/o infectious vs inflammation or lymphoma which could not be arranged at [facility]. Per ophthalmology recommendations and after discussing the patient, patient was [facility]. I examined pt on day of discharge. She was resting comfortably in bed, reports blurry vision and pain in her right eye Periorbital erythema and swelling much improved but eye redness persisted. She was transferred to [facility] on night of 10/23 ~2099. I was not at hospital during the transfer Please do not hesitate to contact [facility] division of Hospital Medicine if you have any questions or concerns. It was a pleasure getting to take care of your patient during her hospital stay. INPT CONSULTS IP ENT CONSULT IP INFECTIOUS DISEASE CONSULT F/U APPTS No follow-up provider specified. DIET: regular ACTIVITY: No restrictions DISPO: Discharged to TRANSFERRED TO [facility] []Home, []HHC, []SNF, []ECF, []Hospice, []AMA [...] capsule TREATMENT TEAM: Treatment Team: Emergency Medicine Cloth Shrinking Machine Operator Helper: Edwina Doyle; Consulting Physician: Stevie Goetz Infectious [...] SKIN: Normal coloration, warm, AND dry. NEURO: dock pumper grossly intact, normal speech, no lateralizing weakness. PSYCH: Awake, alert, oriented x 4. Affect appropriate. LABS Recent Labs 10/22/22 0958 WBC 16.0* HCT 35.3* PLT 332 Log Haul Chain Feeder Assessment IMAGING: CT CHEST W/O CONTRAST Result [...] emphysema is p (more content not included)...[facility] [id number] NoteDISCHARGE SUMMARY PATIENT INFORMATION: Name: Gracie Banuelos Date of Admission: 10/20/2022 8:44 AM Discharge Date: 10/23/2022 : 1965 57 year old Admitting Physician: Robby Bush MD PCP: No primary care provider on file. Discharge Physician: ROBBY BUSH TRANSFERRED TO [facility] COURSE AND OUTCOME: Gracie Banuelos is a 57 year old year old female who presented to [facility] on 10/20/2022 8:44 AM. Ms. Banuelos is a 57 yof with COPD, active tobacco abuse, anxiety, HTN, sent from OSH [[place] [facility]] for evaluation of right eye swelling, erythema and pain with movement. Infectious diseases, ENT, and Ophthalmology is consulted and she was started on empiric abx. MRI orbit Abnormal infiltration throughout the right retroantral and extraconal fat as well as the pterygopalatine fossa and diffusely throughout the right graduate intern space with asymmetry of the muscles of mastication. ENT performed nasal endoscopy - without signs of fungal infection. ID recommended to hold antifungals Ophthalmology strongly recommended orbital biopsy to r/o infectious vs inflammation or lymphoma which could not be arranged at [facility]. Per ophthalmology recommendations and after discussing the patient, patient was transferred [facility] for further investigations. I examined pt on day of discharge. She was resting comfortably in bed, reports blurry vision and pain in her right eye Periorbital erythema and swelling much improved but eye redness persisted. She was transferred to [facility] on night of 10/23 ~2099. I was not at hospital during the transfer Please do not hesitate to contact [facility] division of Hospital Medicine if you have any questions or concerns. It was a pleasure getting to take care of your patient during her hospital stay. INPT CONSULTS IP ENT CONSULT IP INFECTIOUS DISEASE CONSULT Ophthalmology F/U APPTS No follow-up provider specified. DIET: regular ACTIVITY: No restrictions DISPO: Discharged to TRANSFERRED TO [facility] []Home, []HHC, []SNF, []ECF, []Hospice, []AMA [...] capsule TREATMENT TEAM: Treatment Team: Emergency Medicine Cloth Shrinking Machine Operator Helper: Edwina Doyle; Consulting Physician: Stevie Goetz Infectious Disease; PCNA: Sherron Briones; 1st call: Ani Thurman APRN-COMPANY MARKER OBJECTIVE FINDINGS AT DISCHARGE: BP 119/90 (BP [...] SKIN: Normal coloration, warm, AND dry. NEURO: dock pumper grossly intact, normal speech, no lateralizing weakness. PSYCH: Awake, alert, oriented x 4. Affect appropriate. LABS No results for input(s): NA, K, CL, CO2, BUN, CREATININE, GLU, WBC, HCT, PLT in the last 72 hours. Invalid input(s): HEMOGLOBIN Log Haul Chain Feeder Assessment IMAGING: CT CHEST W/O CONTRAST Result [...] patent. Layering of (more content not included)...[facility] [id number] NoteDAILY PROGRESS NOTE Length of stay: 3 [...] Daily ARIPiprazole, 5 mg, Oral, At Bedtime ygzyawf-mbtpxx-pyhjvwid, 12,000 Units, Oral, 3x Daily with Meals [...] in differential Plans Ophthalmology recommends transfer to [facility]/ orbital surgeon for biopsy. Discussed with [...] excellent care from the nursing staff, and administrative support technician I personally reviewed patient medical record including blood work and radiology report Total time spent with patient is greater than 30 minutes more than 70% of the time is spent in direct patient care Dictated using voice recognition software. Document may contain errors not identified before finalizing. Robby Bush MD MS Pager # [phone] [id number] Telephone encounter Note* Telephone Encounter - Jaime Aggarwal MD - 10/23/2022 12:45 PM EST Spoke to Domonique, pt sister Explained rationale for biopsy and transfer All questions answered [facility] Work Phone: 1(666) 941-595001-26-2023 Miscellaneous Notes* Telephone Encounter - Jaime Aggarwal [...] Domonique back to discuss her sister Dx's [phone] ( PT will be home until 2:30 pm) documented in this [id number] Telephone encounter Note* Telephone Encounter - Airam Adam - 10/23/2022 12:08 PM EST PT's sister, Domonique calling in stating Dr. Aggarwal called and LVM for her regarding her sister that is inpatient. Please call Domonique back to discuss her sister Dx's [phone] ( PT will be home until 2:30 pm) [id number] NoteOTOLARYNGOLOGY HEAD AND NECK SURGERY DAILY PROGRESS [...] structures -ENT will continue to follow ENT [id number] Noman Prajapati MD PGY-3 Otolaryngology - Head AND Neck Surgery [facility] Service Pager: [phone] [id number] History of Present illness Narrative* Uri Peña [...] to orbital surgeon for biopsy: O-P at [facility] or Uri Peña MD * Jaime [...] into the pterygopalatine fossa; [facility] Today's exam is [...] from ENT - Recommend transfer to or [facility] for oculoplastics care. The patient will [...] with Dr. Kidd and documented in this [id number] NoteDAILY PROGRESS NOTE Length of stay: 2 [...] Daily ARIPiprazole, 5 mg, Oral, At Bedtime hjltovg-bctodd-bmvkvhnc, 12,000 Units, Oral, 3x Daily with Meals [...] excellent care from the nursing staff, and administrative support technician I personally reviewed patient medical record including blood work and radiology report Total time spent with patient is greater than 30 minutes more than 70% of the time is spent in direct patient care Dictated using voice recognition software. Document may contain errors not identified before finalizing. Robby Bush MD MS Pager # [phone] [id number] NoteOTOLARYNGOLOGY HEAD AND NECK SURGERY DAILY PROGRESS [...] structures -ENT will continue to follow ENT [id number] Note: ENT team attempted to scope patient two separate times earlier this afternoon after critical findings on the MRI were noted. Esdras Brambila DDS, MD ENT rotator ENT pager [phone] [id number] History of Present illness Narrative* Claire Ruiz [...] and Jaime Aggarwal MD documented in this [id number] Note10/21/22 1143 Assessment and Discharge Planning Evaluation READMISSION LESS THAN 30 DAYS No READMISSION RISK SCORE IS Low Risk INTERVIEWED Patient;Chart Review COGNITIVE STATUS Oriented to person, place, time and location Functional Status Age Appropriate;Ambulates with vice president medical affairs (cane, walker, etc.) LIVING SITUATION Home - Own;Family PCP VERIFIED No ADMISSION INSURANCE Medicaid Medicaid [facility] HEALTH CARE PRIOR TO ADMISSION No Dialysis [...] planning and needs as warranted. Katina Salas Intake Clerk (8:30-4:00)[facility] [id number] NoteDEPARTMYMICHIGAN [facility] HISTORY AND PHYSICAL EXAMINATION SERVICE DATE: 10/20/2022 PRIMARY CARE PHYSICIAN: No primary care provider on file. CHIEF COMPLAINT: right eyelid swelling and erythema HPI: Ms. Banuelos is a 57 yof with COPD, active tobacco abuse, anxiety, HTN, sent from [facility] [[place] [facility]] for evaluation of right eye swelling, [...] tablet (has no administration in time range) yjkoshd-htstkk-klhcuked (CREON) 60507 units capsule (12,000 Units Oral Given 10/20/221644) [...] tobacco abuse, anxiety, HTN, sent from OSH [[place] ED] admitted with right orbital cellulitis Assessment Principal Problem: Orbital cellulitis on right Active Problems: Chronic bronchitis (HCC) Anxiety Tobacco abuse HTN (hypertension) Ophthalmology and ENT is consulted - following Plan MRI orbit w/wo is ordered. CT chest w/o. Empiric abx Vancomycin and Zosyn [she had rash with penicillins as kid, denied anaphylactic react (more content not included)...[facility] [id number] History of Present illness Narrative* Jeffery Jin [...] that did not have beds, sent to [facility] for possible admission for orbital [...] Seen with Dr. Guerin documented in this [id number] Telephone encounter Note* Telephone Encounter - Jeffy Garner MD - 10/20/2022 5:17 AM EST I was called by [facility] regarding a transfer from [place] ED. That facility is requesting transfer because [...] 13, ESR/CRP elevated. Discussed with provider at [place] ED, advised they shoulddiscuss case with ophthalmology as patient may benefit from ED to ED transfer rather than direct admission to medicine for earlier ophthalmology evaluation. Patient is not accepted to medicine at this time, 5:18 AM 10/20/22. Jeffy Garner MD [id number] Miscellaneous Notes* Telephone Encounter - Jeffy Garner MD - 10/20/2022 5:17 AM EST I was called by [facility] regarding a transfer from [place] ED. That facility is requesting transfer because [...] 13, ESR/CRP elevated. Discussed with provider at [place] ED, advised they shoulddiscuss case with ophthalmology as patient may benefit from ED to ED transfer rather than direct admission to medicine for earlier ophthalmology evaluation. Patient is not accepted to medicine at this time, 5:18 AM 10/20/22. 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 Mo Velasco DO on 10/20/22 at 0555 Patient has been in the department waiting for bed availability at [facility]. She was a level 1 initially multiple callbacks they are unable to deliver a bed. I spoke with the patient she was okay with trying other hospitalsystems in the [facility]. Her visual acuity obtained 20/40 OD, [...] she should go to the emergency room. [facility] Medical History Abdominal pain Alcohol abuse [...] Anxiety 04/19/19 [History Last Taken 06/10/21 21:00] qazyhy-qncopazw-jkuzoyx 24,000-76,000-120,000 unit capsule,delayed rel 3 ea PO [...] Allergy Hives Verified 10/19/22 18:59 hydrocodone [From [place]] AdvReac Itching Verified 10/19/22 18:59 Family History [...] % (Auto) 63.4 Lymph % (Auto) 23.6 [place] % (Auto) 7.1 Eos % (Auto) 4.4 [...] with Dr. Jurado, on-call Dr. Acosta, her datapower consultant. He advises that if the patient had [...] pressure. We spoke with both hospitals in [place] who are not excepting transfers at this time. Patient has been discussed with [facility] and patient has been accepted as [...] mg PO DAILY PRN PRN (Reason: Anxiety) coikfi-komfjlsx-kzngmbb 1 CAPSULE capsule 3 ea PO DAILY [...] Disposition Disposition: Acute Care Hospital Discharge Location: [facility] What to do if you have Problems For any increased pain, shortness of breath, bleeding, nausea or vomiting, chestpain, or any unexpected problems, contact your Primary Care Provider. Call [facility] ([phone]) or report to the closest Emergency Room. Call 911 if necessary. 10/19/222224 <Electronically signed by Tasneem Dykes MD> Cosigner Signature (if applicable): CC: CARMEN EASTON ~ Signed [facility] Work Phone: 1(337) 415-264711-30-2022 Instructions* Patient Instructions* Soila Easton APRN.CNP - 08/27/2022 1:16 PM EST Call [facility] and ask how to safely use your portable oxygen. Start trelegy daily as prescribed by pulmonology Use your oxygen at all times at 2L Use your albuterol inhaler as prescribed for shortness of breath. documented in this encounterMiddletown Hospital11-30-2022 History of Present illness Narrative* Soila Easton APRN.CNP - 08/27/2022 12:53 PM EST CC: Patient presents with: Recheck: [facility] ER follow up, SOB, fevers in evenings HPI Gracie Banuelos is a 57 year old female who presents today for ER follow-up. 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 Also does not wear her oxygen at home unless she is very short of breath. Has not been taking her trelegy, does not wear her oxygen at home. Sees [facility] andwas instructed by them to go [...] airways disease (HCC) Alcohol dependence in remission ([facility]) 07/10/2015 Alcohol use disorder 08/27/2017 Alcohol-induced pancreatitis Alcoholic hepatitis 05/18/2012 Alcoholic liver disease (HCC) 11/16/2013 Anemia Anxiety with depression Asthma Chronic hypoxemic respiratory failure (HCC) COPD (chronic obstructive pulmonary disease) ([facility]) 05/25/2012 DDD (degenerative disc disease), cervical 09/03/2018 [...] Stage 3 severe COPD by GOLD classification ([facility]) 2018 Tobacco use greater than 30 years [...] Take 1 tablet by mouth once daily. kxxzctpntwl-cpmhdricy-xuppqgrp (TRELEGY ELLIPTA) 100-62.5-25 mcg inhalation powder DAILY myrwin-xaezwhjg-jeiqpfs (CREON 24) 24,000-76,000 -120,000 unit delayed release [...] DTAP,TDAP,TD Discontinued DATA REVIEWED: Outside chart from [facility] reviewed. ASSESSMENT/PLAN: 1. Chronic obstructive pulmonary [...] plan. Soila Easton APRN.CNP documented in this encounterMiddletown Hospital10-21-2022 History of Present illness Narrative* Soila [...] Gracie denies regular aerobic exercise. She watches Evolva for sodium, low fat and low cholesterol [...] Stage 3 severe COPD by GOLD classification ([facility]) 2018 Tobacco use greater than 30 years [...] by mouth three times daily as needed. udekgzmtker-qdfstqtsi-oyiqfsuk (TRELEGY ELLIPTA) 100-62.5-25 mcg inhalation powder DAILY melatonin 10 mg TbER rsawpi-foygovkl-mtmnuhq (CREON 24) 24,000-76,000 -120,000 unit delayed release [...] plan. Soila Easton APRN.CNP documented in this encounterMiddletown Hospital09-28-2022 Miscellaneous Notes* Telephone Encounter - Evelyn Montgomery RN - 06/25/2022 11:21 AM EDT Patient recently on antibiotic for respiratory infection. C/o vaginal itching/irritation again now.Asking for refill of diflucan for yeast infection. Please file if okay. No need to call patient back if filed. Evelyn Montgomery RN documented in this encounterMiddletown Hospital09-16-2022 Miscellaneous Notes* Telephone Encounter - Janene [...] you. Janene Grimm RN documented in this encounterMiddletown Hospital08-30-2022 History of Present illness Narrative* Claudia [...] by mouth three times daily as needed. ryyitqclebb-akqijhzht-cagxijku (TRELEGY ELLIPTA) 100-62.5-25 mcg inhalation powder DAILY [...] Take 1 tablet by mouth once daily. ttzehv-gcqmkhup-cuwebrc (CREON 24) 24,000-76,000 -120,000 unit delayed release [...] airways disease (HCC) Alcohol dependence in remission ([facility]) 07/10/2015 Alcohol use disorder 08/27/2017 Alcohol-induced pancreatitis Alcoholic hepatitis 05/18/2012 Alcoholic liver disease ([facility]) 11/16/2013 Anemia Anxiety with depression Asthma Chronic hypoxemic respiratory failure ([facility]) COPD (chronic obstructive pulmonary disease) ([facility]) 05/25/2012 DDD (degenerative disc disease), cervical 09/03/2018 [...] Stage 3 severe COPD by GOLD classification ([facility]) 2018 Tobacco use greater than 30 years [...] 05/27/22 TIME: 9:23 AM documented in this encounterMiddletown Hospital08-25-2022 Miscellaneous Notes* Telephone Encounter - Janene [...] you. Janene Grimm RN documented in this encounterMiddletown Hospital08-05-2022 History of Present illness Narrative* RT [...] 02, 2022 9:43 AM documented in this encounterMiddletown Hospital07-22-2022 Miscellaneous Notes* Telephone Encounter - Eda Moore LPN - 04/18/2022 9:52 AM EDT Patient has been identified by name and date of : Yes Patient phones for refill(s): Pending Prescriptions Disp Refills CHOLECALCIFEROL (VITAMIN D3) 50 MCG (2,000 UNIT) CAPSULE 30 capsule Sig: TAKE 1 CAPSULE BY MOUTH DAILY LONG: Yes Date of last office visit in primary care: 04/17/22 Last 2 Encounter Wt Readings: Date: Wt: 04/17/2022 58.5 kg (129 lb) 07/18/2021 56.5 kg (124 lb 9.6 oz) Previous labs/tests for medication: Not applicable Please advise. Thank you. Eda Moore LPN documented in this encounterM[facility]22 Miscellaneous Notes* Telephone Encounter - Marge Perkins RN - 04/17/2022 11:28 AM EDT [facility] called and notified of providers message and instructions. She voices understanding. Marge Babulski, RN * Telephone Encounter - Soila Easton APRN.CNP - 04/17/2022 11:15 AM EDT Please call [employer] and let them know Ibuprofen is discontinued. Was discussed later in appointment after prescription was sent. Only fill meloxicam at this time. Patient aware she should not take ibuprofen while on meloxicam as it was discussed in appointment. Thank you Soila Easton APRN.IGOR * Telephone Encounter - Suellen Loenard LPN - 04/17/2022 11:03 AM EDT Pharmacist oClleen from [facility] calling with med question. She received an Rx today for meloxicam & ibuprofen, pharmacist states these meds should not be taken at the same time & is asking if the directions should specify how far apart to take them? Please advise. Suellen Leonard LPN documented in this encounterMiddletown [facility]07-21-2022 History of Present illness Narrative* Soila [...] months ago. 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 PAST MEDICAL HISTORY Diagnosis Date Acute exacerbation of chronic obstructive airways disease (HCC) Alcohol dependence in remission ([facility]) 07/10/2015 Alcohol use disorder 08/27/2017 Alcohol-induced pancreatitis Alcoholic hepatitis 05/18/2012 Alcoholic liver disease ([facility]) 11/16/2013 Anemia Anxiety with depression Asthma Chronic hypoxemic respiratory failure (HCC) COPD (chronic obstructive pulmonary disease) ([facility]) 05/25/2012 DDD (degenerative disc disease), cervical 09/03/2018 [...] Stage 3 severe COPD by GOLD classification ([facility]) 2018 Tobacco use greater than 30 years [...] Take 1 capsule by mouth once daily. [id number] (CREON 24) 24,000-76,000 -120,000 unit delayed release [...] ICD9: 577.1, ICD10: K86.0 As above - [id number] 24,000-76,000-120,000 UNIT CAPSULE,DELAYED REL - CONSULT TO [...] Soila Easton APRN.CNP documented in this encounterCleveland [id number] Miscellaneous Notes* Telephone Encounter - Maribeth Owen LPN - 03/24/2022 10:29 AM EDT Called pt and scheduled her for a yearly apt. Patient has been identified by name and date of : Yes Pharmacy phones for refill(s): Pending Prescriptions Disp Refills SIMVASTATIN 20 MG TABLET 30 tablet 0 Sig: TAKE 1 TABLET BY MOUTH AT BEDTIME LONG: Yes HYDROXYZINE PAMOATE 25 MG CAPSULE 30 capsule 0 Sig: TAKE 1 CAPSULE BY MOUTH AT BEDTIME LONG: Yes Date of last office visit in primary care: 03/26/21 Last 2 Encounter Wt Readings: Date: Wt: 07/18/2021 56.5 kg (124 lb 9.6 oz) 06/19/2021 58.1 kg (128 lb) Previous labs/tests for medication: Thank you. Maribeth Owen LPN documented in this encounterMiddletown Hospital06-24-2022 Miscellaneous Notes* Telephone Encounter - Janene Grimm RN - 03/21/2022 4:49 PM EDT Patient has been identified by name and date of : Yes Pharmacy phones for refill(s): Pending Prescriptions Disp Refills CHOLECALCIFEROL (VITAMIN D3) 50 MCG (2,000 UNIT) CAPSULE 28 capsule 11 Sig: Take 1 capsule by mouth once daily. LONG: No [id number] 24,000-76,000-120,000 UNIT CAPSULE,DELAYED REL 180 capsule 11 Sig: Take 3 capsules by mouth twice daily with meals. LONG: No Date of last office visit with [...] you. Janene Grimm RN documented in this encounterMiddletown Hospital06-14-2022 Miscellaneous Notes* Telephone Encounter - Inge Holden APRN.CNP - 03/11/2022 3:35 PM EDT Order filed for Diflucan. Inge Holden APRN.CNP * Telephone Encounter - Tasneem Ocampo RN - 03/11/2022 3:26 PM EDT Patient has been taking antibiotic for upper respiratory infection/pnemonia for the last 7 days. Having vaginal itching. Denies discharge or odor. Requesting RX for Diflucan to be sent to [facility]. RX pending. Has not tried OTC Monistat. No need to call patient unless RX can't be sent. Tasneem Ocampo RN documented in this encounterMiddletown Hospital05-27-2022 Miscellaneous Notes* Telephone Encounter - Eda Moore LPN - 02/21/2022 12:04 PM EDT Patient has been identified by name and date of : Yes Patient phones for refill(s): Pending Prescriptions Disp Refills HYDROXYZINE PAMOATE 25 MG CAPSULE 30 capsule Sig: TAKE 1 CAPSULE BY MOUTH AT BEDTIME LONG: Yes SIMVASTATIN 20 MG TABLET 30 tablet 5 Sig: TAKE 1 TABLET BY MOUTH AT BEDTIME LONG: Yes Date of last office visit in [...] you. Eda Moore LPN documented in this encounterMiddletown Hospital04-06-2022 Miscellaneous Notes* Telephone Encounter - Zelda Cartagena Pss - 01/01/2022 12:50 PM EDT Called and scheduled patient for 01-10-22 with Soila Cartagena Pss * Telephone Encounter - Soila Easton APRN.CNP - 12/27/2021 12:54 PM EDT Patient needs routine follow up. Thank you Soila Easton APRN.CNP documented in this encounterMiddletown Hospital04-15-2021 History of Past illness Narrative* Problem Noted Date Resolved Date History of colonic polyps 01/10/20212020 Abdominal bloating 01/10/2021 01/10/2021 Alcohol dependence in remission 07/10/2015 11/02/2018 Pancreatitis chronic 05/26/2011 08/27/2017 Acute gastritis without mention of hemorrhage 01/03/2015 Gastroesophageal reflux disease 12/26/2009 01/10/2021 documented as of this encounter (statuses as of 01/01/2022) [facility] of Past illness Narrative* Problem Noted Date Resolved Date History of colonic polyps 01/10/20212020 Abdominal bloating 01/10/2021 01/10/2021 Alcohol dependence in remission 07/10/2015 11/02/2018 Pancreatitis chronic 05/26/2011 08/27/2017 Acute gastritis without mention of hemorrhage 01/03/2015 Gastroesophageal reflux disease 12/26/2009 01/10/2021 documented as of this encounter (statuses as of 02/14/2022) [facility] of [facility] illness Narrative* Problem Noted Date Resolved Date History of colonic polyps 01/10/20212020 Abdominal bloating 01/10/2021 01/10/2021 Alcohol dependence in remission 07/10/2015 11/02/2018 Pancreatitis chronic 05/26/2011 08/27/2017 Acute gastritis without mention of hemorrhage 01/03/2015 Gastroesophageal reflux disease 12/26/2009 01/10/2021 documented as of this encounter (statuses as of 02/21/2022) [facility] of [facility] illness Narrative* Problem Noted Date Resolved Date History of colonic polyps 01/10/20212020 Abdominal bloating 01/10/2021 01/10/2021 Alcohol dependence in remission 07/10/2015 11/02/2018 Pancreatitis chronic 05/26/2011 08/27/2017 Acute gastritis without mention of hemorrhage 01/03/2015 Gastroesophageal reflux disease 12/26/2009 01/10/2021 documented as of this encounter (statuses as of 03/11/2022) [facility] Narrative* Problem Noted Date Resolved Date History of colonic polyps 01/10/20212020 Abdominal bloating 01/10/2021 01/10/2021 Alcohol dependence in remission 07/10/2015 11/02/2018 Pancreatitis chronic 05/26/2011 08/27/2017 Acute gastritis without mention of hemorrhage 01/03/2015 Gastroesophageal reflux disease 12/26/2009 01/10/2021 documented as of this encounter (statuses as of 03/24/2022) [facility] Narrative* Problem Noted Date Resolved Date History of colonic polyps 01/10/20212020 Abdominal bloating 01/10/2021 01/10/2021 Alcohol dependence in remission 07/10/2015 11/02/2018 Pancreatitis chronic 05/26/2011 08/27/2017 Acute gastritis without mention of hemorrhage 01/03/2015 Gastroesophageal reflux disease 12/26/2009 01/10/2021 documented as of this encounter (statuses as of 03/24/2022) [facility] Narrative* Problem Noted Date Resolved Date History of colonic polyps 01/10/20212020 Abdominal bloating 01/10/2021 01/10/2021 Alcohol dependence in remission 07/10/2015 11/02/2018 Pancreatitis chronic 05/26/2011 08/27/2017 Acute gastritis without mention of hemorrhage 01/03/2015 Gastroesophageal reflux disease 12/26/2009 01/10/2021 documented as of this encounter (statuses as of 04/17/2022) [facility] Narrative* Problem Noted Date Resolved Date History of colonic polyps 01/10/20212020 Abdominal bloating 01/10/2021 01/10/2021 Alcohol dependence in remission 07/10/2015 11/02/2018 Pancreatitis chronic 05/26/2011 08/27/2017 Acute gastritis without mention of hemorrhage 01/03/2015 Gastroesophageal reflux disease 12/26/2009 01/10/2021 documented as of this encounter (statuses as of 04/17/2022) [facility] Narrative* Problem Noted Date Resolved Date History of colonic polyps 01/10/20212020 Abdominal bloating 01/10/2021 01/10/2021 Alcohol dependence in remission 07/10/2015 11/02/2018 Pancreatitis chronic 05/26/2011 08/27/2017 Acute gastritis without mention of hemorrhage 01/03/2015 Gastroesophageal reflux disease 12/26/2009 01/10/2021 documented as of this encounter (statuses as of 04/18/2022) [facility] Narrative* Problem Noted Date Resolved Date History of colonic polyps 01/10/20212020 Abdominal bloating 01/10/2021 01/10/2021 Alcohol dependence in remission 07/10/2015 11/02/2018 Pancreatitis chronic 05/26/2011 08/27/2017 Acute gastritis without mention of hemorrhage 01/03/2015 Gastroesophageal reflux disease 12/26/2009 01/10/2021 documented as of this encounter (statuses as of 04/18/2022) [facility] Narrative* Problem Noted Date Resolved Date History of colonic polyps 01/10/20212020 Abdominal bloating 01/10/2021 01/10/2021 Alcohol dependence in remission 07/10/2015 11/02/2018 Pancreatitis chronic 05/26/2011 08/27/2017 Acute gastritis without mention of hemorrhage 01/03/2015 Gastroesophageal reflux disease 12/26/2009 01/10/2021 documented as of this encounter (statuses as of 05/03/2022) [facility] Narrative* Problem Noted Date Resolved Date History of colonic polyps 01/10/20212020 Abdominal bloating 01/10/2021 01/10/2021 Alcohol dependence in remission 07/10/2015 11/02/2018 Pancreatitis chronic 05/26/2011 08/27/2017 Acute gastritis without mention of hemorrhage 01/03/2015 Gastroesophageal reflux disease 12/26/2009 01/10/2021 documented as of this encounter (statuses as of 05/16/2022) [facility] Narrative* Problem Noted Date Resolved Date History of colonic polyps 01/10/20212020 Abdominal bloating 01/10/2021 01/10/2021 Alcohol dependence in remission 07/10/2015 11/02/2018 Pancreatitis chronic 05/26/2011 08/27/2017 Acute gastritis without mention of hemorrhage 01/03/2015 Gastroesophageal reflux disease 12/26/2009 01/10/2021 documented as of this encounter (statuses as of 05/22/2022) [address]15-[address]21 History of Past illness Narrative* Problem Noted Date Resolved Date History of colonic polyps 01/10/20212020 Abdominal bloating 01/10/2021 01/10/2021 Alcohol dependence in remission 07/10/2015 11/02/2018 Pancreatitis chronic 05/26/2011 08/27/2017 Acute gastritis without mention of hemorrhage 01/03/2015 Gastroesophageal reflux disease 12/26/2009 01/10/2021 documented as of this encounter (statuses as of 05/27/2022) [place] [address]15-[address]21 History of Past illness Narrative* Problem Noted Date Resolved Date History of colonic polyps 01/10/20212020 Abdominal bloating 01/10/2021 01/10/2021 Alcohol dependence in remission 07/10/2015 11/02/2018 Pancreatitis chronic 05/26/2011 08/27/2017 Acute gastritis without mention of hemorrhage 01/03/2015 Gastroesophageal reflux disease 12/26/2009 01/10/2021 documented as of this encounter (statuses as of 06/13/2022) [address]15-2021 History of Past illness Narrative* Problem Noted Date Resolved Date History of colonic polyps 01/10/20212020 Abdominal bloating 01/10/2021 01/10/2021 Alcohol dependence in remission 07/10/2015 11/02/2018 Pancreatitis chronic 05/26/2011 08/27/2017 Acute gastritis without mention of hemorrhage 01/03/2015 Gastroesophageal reflux disease 12/26/2009 01/10/2021 documented as of this encounter (statuses as of 06/25/2022) [facility] Narrative* Problem Noted Date Resolved Date History of colonic polyps 01/10/20212020 Abdominal bloating 01/10/2021 01/10/2021 Alcohol dependence in remission 07/10/2015 11/02/2018 Pancreatitis chronic 05/26/2011 08/27/2017 Acute gastritis without mention of hemorrhage 01/03/2015 Gastroesophageal reflux disease 12/26/2009 01/10/2021 documented as of this encounter (statuses as of 06/30/2022) [address]15-2021 History of Past illness Narrative* Problem Noted Date Resolved Date History of colonic polyps 01/10/20212020 Abdominal bloating 01/10/2021 01/10/2021 Alcohol dependence in remission 07/10/2015 11/02/2018 Pancreatitis chronic 05/26/2011 08/27/2017 Acute gastritis without mention of hemorrhage 01/03/2015 Gastroesophageal reflux disease 12/26/2009 01/10/2021 documented as of this encounter (statuses as of 07/18/2022) [facility]arrative* Problem Noted Date Resolved Date History of colonic polyps 01/10/20212020 Abdominal bloating 01/10/2021 01/10/2021 Alcohol dependence in remission 07/10/2015 11/02/2018 Pancreatitis chronic 05/26/2011 08/27/2017 Acute gastritis without mention of hemorrhage 01/03/2015 Gastroesophageal reflux disease 12/26/2009 01/10/2021 documented as of this encounter (statuses as of 08/27/2022) [address]15-[address]21 History of Past illness Narrative* Problem Noted Date Resolved Date History of colonic polyps 01/10/20212020 Abdominal bloating 01/10/2021 01/10/2021 Alcohol dependence in remission 07/10/2015 11/02/2018 Pancreatitis chronic 05/26/2011 08/27/2017 Acute gastritis without mention of hemorrhage 01/03/2015 Gastroesophageal reflux disease 12/26/2009 01/10/2021 documented as of this encounter (statuses as of 11/12/2022) [facility] Narrative* Problem Noted Date Resolved Date History of colonic polyps 01/10/20212020 Abdominal bloating 01/10/2021 01/10/2021 Alcohol dependence in remission 07/10/2015 11/02/2018 Pancreatitis chronic 05/26/2011 08/27/2017 Acute gastritis without mention of hemorrhage 01/03/2015 Gastroesophageal reflux disease 12/26/2009 01/10/2021 documented as of this encounter (statuses as of 11/12/2022) [address]15-2021 History of Past illness Narrative* Problem Noted Date Resolved Date History of colonic polyps 01/10/20212020 Abdominal bloating 01/10/2021 01/10/2021 Alcohol dependence in remission 07/10/2015 11/02/2018 Pancreatitis chronic 05/26/2011 08/27/2017 Acute gastritis without mention of hemorrhage 01/03/2015 Gastroesophageal reflux disease 12/26/2009 01/10/2021 documented as of this encounter (statuses as of 11/25/2022) [facility]arrative* Problem Noted Date Resolved Date History of colonic polyps 01/10/20212020 Abdominal bloating 01/10/2021 01/10/2021 Alcohol dependence in remission 07/10/2015 11/02/2018 Pancreatitis chronic 05/26/2011 08/27/2017 Acute gastritis without mention of hemorrhage 01/03/2015 Gastroesophageal reflux disease 12/26/2009 01/10/2021 documented as of this encounter (statuses as of 11/26/2022) [facility]arrative* Problem Noted Date Resolved Date History of colonic polyps 01/10/20212020 Abdominal bloating 01/10/2021 01/10/2021 Alcohol dependence in remission 07/10/2015 11/02/2018 Pancreatitis chronic 05/26/2011 08/27/2017 Acute gastritis without mention of hemorrhage 01/03/2015 Gastroesophageal reflux disease 12/26/2009 01/10/2021 documented as of this encounter (statuses as of 11/27/2022) [facility]* Problem Noted Date Resolved Date History of colonic polyps 01/10/20212020 Abdominal bloating 01/10/2021 01/10/2021 Alcohol dependence in remission 07/10/2015 11/02/2018 Pancreatitis chronic 05/26/2011 08/27/2017 Acute gastritis without mention of hemorrhage 01/03/2015 Gastroesophageal reflux disease 12/26/2009 01/10/2021 documented as of this encounter (statuses as of 11/27/2022) [facility]arrative* Problem Noted Date Resolved Date History of colonic polyps 01/10/20212020 Abdominal bloating 01/10/2021 01/10/2021 Alcohol dependence in remission 07/10/2015 11/02/2018 Pancreatitis chronic 05/26/2011 08/27/2017 Acute gastritis without mention of hemorrhage 01/03/2015 Gastroesophageal reflux disease 12/26/2009 01/10/2021 documented as of this encounter (statuses as of 11/27/2022) [place] [address]15-[address]21 History of Past illness Narrative* Problem Noted Date Resolved Date History of colonic polyps 01/10/20212020 Abdominal bloating 01/10/2021 01/10/2021 Alcohol dependence in remission 07/10/2015 11/02/2018 Pancreatitis chronic 05/26/2011 08/27/2017 Acute gastritis without mention of hemorrhage 01/03/2015 Gastroesophageal reflux disease 12/26/2009 01/10/2021 documented as of this encounter (statuses as of 11/28/2022) [facility]arrative* Problem Noted Date Resolved Date History of colonic polyps 01/10/20212020 Abdominal bloating 01/10/2021 01/10/2021 Severe protein-calorie malnutrition 01/07/2019 12/26/2022 Alcohol dependence in remission 07/10/2015 11/02/2018 Pancreatitis chronic 05/26/2011 08/27/2017 Acute gastritis without mention of hemorrhage 01/03/2015 Gastroesophageal reflux disease 12/26/2009 01/10/2021 documented as of this encounter (statuses as of 12/31/2022) [facility]arr[facility]* Problem Noted Date Resolved Date History of colonic polyps 01/10/20212020 Abdominal bloating 01/10/2021 01/10/2021 Severe protein-calorie malnutrition 01/07/2019 12/26/2022 Alcohol dependence in remission 07/10/2015 11/02/2018 Pancreatitis chronic 05/26/2011 08/27/2017 Acute gastritis without mention of hemorrhage 01/03/2015 Gastroesophageal reflux disease 12/26/2009 01/10/2021 documented as of this encounter (statuses as of 03/13/2023) [address]15-[address]21 History of Past illness Narrative* Problem Noted Date Resolved Date History of colonic polyps 01/10/20212020 Abdominal bloating 01/10/2021 01/10/2021 Severe protein-calorie malnutrition 01/07/2019 12/26/2022 Alcohol dependence in remission 07/10/2015 11/02/2018 Pancreatitis chronic 05/26/2011 08/27/2017 Acute gastritis without mention of hemorrhage 01/03/2015 Gastroesophageal reflux disease 12/26/2009 01/10/2021 documented as of this encounter (statuses as of 03/24/2023) [address]15-[address]21 History of Past illness Narrative* Problem Noted Date Diagnosed Date Resolved Date History of colonic polyps 01/10/2021 Abdominal bloating 01/10/2021 Severe protein-calorie malnutrition 01/07/2019 12/26/2022 Alcohol dependence in remission 07/10/2015 11/02/2018 Pancreatitis chronic 05/26/2011 017 Acute gastritis without mention of hemorrhage 10/03/19 11 01/03/2015 Gastroesophageal reflux disease 12/26/2009 01/10/2021 documented as of this encounter (statuses as of 04/15/2023) [address]15-[address]21 History of Past illness Narrative* Problem Noted Date Diagnosed Date Resolved Date History of colonic polyps 01/10/2021 Abdominal bloating 01/10/2021 Severe protein-calorie malnutrition 01/07/2019 12/26/2022 Alcohol dependence in remission 07/10/2015 11/02/2018 Pancreatitis chronic 05/26/2011 017 Acute gastritis without mention of hemorrhage 10/03/19 11 01/03/2015 Gastroesophageal reflux disease 12/26/2009 01/10/2021 documented as of this encounter (statuses as of 05/19/2023) [address]15-[address]21 History of Past illness Narrative* Problem Noted Date Diagnosed Date Resolved Date History of colonic polyps 01/10/2021 Abdominal bloating 01/10/2021 Severe protein-calorie malnutrition 01/07/2019 12/26/2022 Alcohol dependence in remission 07/10/2015 11/02/2018 Pancreatitis chronic 05/26/2011 017 Acute gastritis without mention of hemorrhage 10/03/19 11 01/03/2015 Gastroesophageal reflux disease 12/26/2009 01/10/2021 documented as of this encounter (statuses as of 06/08/2023) [address]15-[address]21 History of Past illness Narrative* Problem Noted Date Diagnosed Date Resolved Date History of colonic polyps 01/10/2021 Abdominal bloating 01/10/2021 Severe protein-calorie malnutrition 01/07/2019 12/26/2022 Alcohol dependence in remission 07/10/2015 11/02/2018 Pancreatitis chronic 05/26/2011 017 Acute gastritis without mention of hemorrhage 10/03/19 11 01/03/2015 Gastroesophageal reflux disease 12/26/2009 01/10/2021 documented as of this encounter (statuses as of 06/10/2023) [facility]arr[facility]* Problem Noted Date Diagnosed Date Resolved Date History of colonic polyps 01/10/2021 Abdominal bloating 01/10/2021 Severe protein-calorie malnutrition 01/07/2019 12/26/2022 Alcohol dependence in remission 07/10/2015 11/02/2018 Pancreatitis chronic 05/26/2011 017 Acute gastritis without mention of hemorrhage 10/03/19 11 01/03/2015 Gastroesophageal reflux disease 12/26/2009 01/10/2021 documented as of this encounter (statuses as of 06/12/2023) [facility] Narrative* Problem Noted Date Diagnosed Date Resolved Date History of colonic polyps 01/10/2021 Abdominal bloating 01/10/2021 Severe protein-calorie malnutrition 01/07/2019 12/26/2022 Alcohol dependence in remission 07/10/2015 11/02/2018 Pancreatitis chronic 05/26/2011 017 Acute gastritis without mention of hemorrhage 10/03/19 11 01/03/2015 Gastroesophageal reflux disease 12/26/2009 01/10/2021 documented as of this encounter (statuses as of 07/10/2023) [address]15-[address]21 History of Past illness Narrative* Problem Noted Date Diagnosed Date Resolved Date History of colonic polyps 01/10/2021 Abdominal bloating 01/10/2021 Severe protein-calorie malnutrition 01/07/2019 12/26/2022 Alcohol dependence in remission 07/10/2015 11/02/2018 Pancreatitis chronic 05/26/2011 017 Acute gastritis without mention of hemorrhage 10/03/19 11 01/03/2015 Gastroesophageal reflux disease 12/26/2009 01/10/2021 documented as of this encounter (statuses as of 11/04/2023) [facility] Narrative* Problem Noted Date Diagnosed Date Resolved Date History of colonic polyps 01/10/2021 Abdominal bloating 01/10/2021 Severe protein-calorie malnutrition 01/07/2019 12/26/2022 Alcohol dependence in remission 07/10/2015 11/02/2018 Pancreatitis chronic 05/26/2011 017 Acute gastritis without mention of hemorrhage 10/03/19 11 01/03/2015 Gastroesophageal reflux disease 12/26/2009 01/10/2021 documented as of this encounter (statuses as of 12/17/2023) [address]15-[address]21 History of Past illness Narrative* Problem Noted Date Diagnosed Date Resolved Date History of colonic polyps 01/10/2021 Abdominal bloating 01/10/2021 Severe protein-calorie malnutrition 01/07/2019 12/26/2022 Alcohol dependence in remission 07/10/2015 11/02/2018 Pancreatitis chronic 05/26/2011 017 Acute gastritis without mention of hemorrhage 10/03/19 11 01/03/2015 Gastroesophageal reflux disease 12/26/2009 01/10/2021 documented as of this encounter (statuses as of 01/07/2024) [facility]* Problem Noted Date Diagnosed Date Resolved Date History of colonic polyps 01/10/2021 Abdominal bloating 01/10/2021 Severe protein-calorie malnutrition 01/07/2019 12/26/2022 Alcohol dependence in remission 07/10/2015 11/02/2018 Pancreatitis chronic 05/26/2011 017 Acute gastritis without mention of hemorrhage 10/03/19 11 01/03/2015 Gastroesophageal reflux disease 12/26/2009 01/10/2021 documented as of this encounter (statuses as of 01/07/2024) [address]15-2021 History of Past illness Narrative* Problem Noted Date Diagnosed Date Resolved Date History of colonic polyps 01/10/2021 Abdominal bloating 01/10/2021 Severe protein-calorie malnutrition 01/07/2019 12/26/2022 Alcohol dependence in remission 07/10/2015 11/02/2018 Pancreatitis chronic 05/26/2011 017 Acute gastritis without mention of hemorrhage 10/03/19 11 01/03/2015 Gastroesophageal reflux disease 12/26/2009 01/10/2021 documented as of this encounter (statuses as of 01/13/2024) [facility]04-15-2021 History of Past illness Narrative* Problem Noted Date Diagnosed Date Resolved Date History of colonic polyps 01/10/2021 Abdominal bloating 01/10/2021 Severe protein-calorie malnutrition 01/07/2019 12/26/2022 Alcohol dependence in remission 07/10/2015 11/02/2018 Pancreatitis chronic 05/26/2011 017 Acute gastritis without mention of hemorrhage 10/03/19 11 01/03/2015 Gastroesophageal reflux disease 12/26/2009 01/10/2021 documented as of this encounter (statuses as of 01/13/2024) [facility] Note Date/Time December 12, 2024 6:2 5pm [facility] Medical Records Department [address] [place] [address] Anesthesia Postop Eval II 12/12/24 1751 MR#: [id number] Acct: [id number] Name: GRACIE BANUELOS Rep #:[id number] : 1965 59 From: Jeferson Breaux MD PCP: Dr. Misbah Elkins MD Status:ADM I N Y Race: C Location: [place] [address] 3-1 Anesthesia Postop Eval I Sum Postop Eval Completion status Anesthesia document: Postop Eval 1 completed: Yes Anesthesia Postop Eval I Summary Anesthesia Postop Eval I Summary: Anesthesia Postop Eval I: Assessment Summary Airway patent Yes 12/12/24 13:08 IMAGING [email or web address] Spontaneous unlabored Yes 12/12/24 13:08 IMAGING [email or web address] respirations Mental status Awake,Calm 12/12/24 13:08 IMAGING [email or web address] nausea No 12/12/24 13:08 IMAGING [email or web address] Vomiting No 12/12/24 13:08 IMAGING [email or web address] Anesthesia Postop Eval I: Fluid Summary Crystalloid volume administer 30 12/12/24 13:08 IMAGING [email or web address] (ml) Colloids volume administered ( ml) Blood Product volume administered (ml) Total IV fluid infused 30 12/12/24 13:08 IMAGING [email or web address] Anesthesia Postop Eval I: Summary Notes Anesthesia Complication No 12/12/24 13:08 IMAGING [email or web address] Anesthesia Complication Comment: Post-operative progress note Anesthesia: Postop Eval II Evaluation Mental status: Awake and Calm Pain Level: 1 nausea: No Vomiting: No Complications Anesthesia Complication: No 12/12/24 6805 <Electronically signed by Jeferson carranza MD> Date _ Jeferson Breaux MD Cosigner Signature: Date CC: ~ Signed [facility] Work Phone: Consult note Author Uri Reyna [facility] Note Date/Time July 06, 2025 12 :10pm [facility] Medical Records Department [address] [place] [address] Anesthesia Postop Eval I 07/06/25 1159 MR#: [id number] Acct: [id number] Name: GRACIE BANUELOS Rep #:[id number] : 1965 60 From: Uri Reyna PCP: Dr. Misbah Elkins MD Status:REG S DC Y Race: C Location: [place] [address] ADDENDUM by BRAYDEN Reyna on 07/06/25 at [...] by Uri Reyna > Date _ Uri Pettit Signature: Date CC: ~ Signed [facility] Work Phone: Discharge summary Author [facility] November 07, 2022 12:09pm Note Date/Time November 07, 2022 12:09pm [facility] Medical Records Department [address] [place] [address] Instructions for Home/Discharge Instructions 11/07/22 1208 MR#: [id number] Acct: [id number] Name: GRACIE BANUELOS Rep #:[id number] : 1965 57 From: Anastacia Bonilla MD [...] Coffman ; Dieter Harrison ; Ani Eduardo SERVICE COUNTER CASHIER ; Courtney Iverson Instructions Patient Instructions: Acute [...] by Anastacia Bonilla MD>Anastacia Bonilla MD CC: SERVICE COUNTER CASHIER-C Ani Eduardo; SERVICE COUNTER CASHIERSierraC SOILA EASTON; Dr. Ciarra Ross MD; Dr. Freddie Perdue MD; Dr. Gonzalo Sebastian DO; Dr. Courtney Iverson MD; Dr. Olivier Coffman MD; Dr. Lisa Ochoa MD; Dr. Dieter Harrison MD ~ Signed [facility] Work Phone: Discharge summary Author Dr. Bonilla [facility] November 07, 2022 1:26pm Note Date/Time November 07, 2022 12:20pm [facility] Medical Records Department [address] [place] [address] Discharge Summary 11/07/22 1209 MR#: [id number] Acct: [id number] Name: GRACIE BANUELOS Rep #:[id number] : 1965 57 From: Anastacia Bonilla MD PCP: CARMEN STAHL Status:ADM IN Location: [facility] [id number] Providers Date of Admission: 11/01/22 Date of Discharge: 11/07/22 Primary Care Physician: CARMEN STAHL Consultations 11/02/22 20:18 Consult: Lactation Coordinator / Pulmonary Medicine Routine Consulting Provider: Pulmonary Medicine [facility] Reason for Consult: respiratory failure. COPD EMERGENT [...] 0.5 inch RIGHT EYE Q6H antibiotic 11/01/22 [id number] 24,000-76,000-120,000 unit capsule,delayed rel (Creon) 1cap PO [...] note, patient had recently been discharged from [facility] after she was transferred there from [facility] for acute ophthalmology evaluation due to [...] Neut % (Auto) 59.2, Lymph % (Auto)19.9, [place] % (Auto) 13.8 H, Eos % (Auto) [...] Up: Misbah Elkins MD [Med Staff - Research/Program Director] - 11/11/22 4:00 pm Disposition Disposition (needs filled in before D/C Order can be placed): Home, Self Care Charges/Coding Visit Charges Inpatient E&M: 21456 Disch Hosp >30min 11/07/22 1326 <Electronically signed by Anastacia Bonilla MD> Cosigner Signature (if applicable): CC: SERVICE COUNTER CASHIERMiriam EASTON; Dr. Anastacia Bonilla MD~ Signed [facility] Work Phone: Evaluation note* Diagnosis Essential hypertension, benign documented in this encounter [facility] note* Diagnosis MICKEY (generalized anxiety disorder) Generalized anxiety disorder Hyperlipidemia, unspecified hyperlipidemia type documented in this encounter [facility] note* Diagnosis Onset Date Resolution Status Chronic respiratory failure with hypoxia chronic Smoking greater than 30 pack years chronic Stage 3 severe COPD by GOLD classification [facility] Work Phone: Evaluation note* Diagnosis Vitamin D deficiency Unspecified vitamin D deficiency Alcohol-induced chronic pancreatitis (HCC) Chronic pancreatitis [facility]* Diagnosis Hyperlipidemia, unspecified hyperlipidemia type MICKEY (generalized anxiety disorder) Generalized anxiety disorder documented in this encounter [facility] note* Diagnosis Essential hypertension, benign- Primary Hyperlipidemia, unspecified hyperlipidemia type Chronic fatigue Other malaise and fatigue Alcoholic hepatitis without ascites Acute alcoholic hepatitis Alcohol-induced chronic pancreatitis (HCC) Chronic pancreatitis Iron deficiency Iron deficiency anemia, unspecified Vitamin D deficiency Unspecified vitamin D deficiency MICKEY (generalized anxiety disorder) Generalized anxiety disorder Reactive depression Dysthymic disorder documented in this encounter [facility] note* Diagnosis Vitamin D deficiency Unspecified vitamin D deficiency documented in this encounter [facility] note* Diagnosis Alcohol-induced chronic pancreatitis (HCC) Chronic pancreatitis Alcoholic hepatitis without ascites Acute alcoholic hepatitis documented in this encounter [facility] note* Diagnosis Alcohol-induced chronic pancreatitis (HCC) Chronic pancreatitis Alcoholic hepatitis without ascites Acute alcoholic hepatitis [facility] noteNo assessment information availableWPremier Health [facility] Work Phone: Evaluation note* Diagnosis Encounter for screening mammogram for breast cancer documented in this encounter [facility] note* Diagnosis Essential hypertension, benign- Primary Multiple joint pain Pain in joint, multiple sites Alcohol-induced chronic pancreatitis (HCC) Chronic pancreatitis Chronic obstructive pulmonary disease, unspecified COPD type (HCC) Right otitis media, unspecified otitis media type Need for influenza vaccination Need for prophylactic vaccination and inoculation against influenza [facility]* Diagnosis Chronic obstructive pulmonary disease, unspecified COPD type (HCC)- Primary documented in this encounter [facility] note* Diagnosis Onset Date Resolution Status Chronic respiratory failure with hypoxia chronic Stage 3 severe COPD by GOLD classification [facility] Work Phone: Evaluation note* Diagnosis Inflammation of [...] rash on her back, neck, and extremities [facility] Diagnosis Inflammation of orbital region- Primary Unspecified chronic inflammation of orbit [facility] Diagnosis Onset Date Resolution Status Chronic respiratory failure with hypoxia chronic Stage 3 severe COPD by GOLD classification chronic Acute hyponatremia acute Acute kidney injury acute Diarrhea acute Nausea & vomiting acute Stage 3 severe COPD by GOLD classification [facility] Work Phone: Evaluation note* Diagnosis CHUY (acute kidney injury) (HCC)- Primary Acute kidney failure, unspecified Chronic obstructive pulmonary disease, unspecified COPD type (HCC) Alcohol use disorder, moderate, dependence (HCC) Essential hypertension, benign Hyperlipidemia, unspecified hyperlipidemia type Tobacco use disorder Reactive depression Dysthymic disorder Moderate episode of recurrent major depressive disorder (HCC) Alcohol-induced chronic pancreatitis (HCC) Chronic pancreatitis documented [facility]* Diagnosis Numbness and tingling of both lower extremities- Primary CHUY (acute kidney injury) (HCC) Acute kidney failure, unspecified Essential hypertension, benign Hyperlipidemia, unspecified hyperlipidemia type [facility]* Diagnosis Neuropathy- Primary Mononeuritis of unspecified site Numbness and tingling of both lower extremities Numbness and tingling of both feet Claustrophobia Other isolated or specific phobias documented [facility]* Diagnosis CHUY (acute kidney injury) (HCC)- Primary Acute kidney failure, unspecified [facility]* Diagnosis Cellulitis of right orbital region- Primary Orbital cellulitis CHUY (acute kidney injury) (HCC) Acute kidney failure, unspecified Uncontrolled hypertension Unspecified essential hypertension Tobacco abuse, in remission Personal history of tobacco use, presenting hazards to health Lung mass Swelling, mass, or lump in chest documented in this encounter [facility]* Diagnosis Prediabetes- Primary Other abnormal glucose [facility]* Diagnosis Thrush Candidiasis of mouth [facility]* Diagnosis Hyperlipidemia Other and unspecified hyperlipidemia [facility]* Diagnosis Hyperlipidemia, unspecified hyperlipidemia type [facility]* Diagnosis Arthralgia of right temporomandibular joint- Primary Arthralgia of temporomandibular joint Insomnia, unspecified type Nausea Nausea alone Alcohol use disorder, moderate, dependence (HCC) documented in this encounter [facility]* Diagnosis Encounter for screening mammogram for breast cancer [facility]* Diagnosis Vitamin D deficiency Unspecified vitamin D deficiency [facility]* Diagnosis Onset Date Resolution Status Asthma chronic Chronic respiratory failure with hypoxia chronic COPD (chronic obstructive pulmonary disease) chronic Smoking greater than 30 pack years [employer] [facility] Work Phone: evaluation note* Diagnosis Tachycardia- Primary Tachycardia, unspecified Alcohol-induced chronic pancreatitis (HCC) Chronic pancreatitis Hyperlipidemia, unspecified hyperlipidemia type Insomnia, unspecified type Vitamin D deficiency Unspecified vitamin D deficiency Chronic obstructive pulmonary disease, unspecified COPD type (HCC) Prediabetes Other abnormal glucose [facility]* Diagnosis Onset Date Resolution Status Pleurisy acute Pneumonia acute Acute on chronic hypoxic respiratory failure chronic COPD (chronic obstructive pulmonary disease) [facility] Work Phone: evaluation note* Diagnosis Essential hypertension, benign- Primary Hyponatremia Hyposmolality and/or hyponatremia Leukocytosis, unspecified type COPD with exacerbation (HCC) Obstructive chronic bronchitis with exacerbation Pneumonia due to infectious organism, unspecified laterality, unspecified part of lung documented in this encounter [facility]* Diagnosis Onset Date Resolution Status Pleurisy acute COPD (chronic obstructive pulmonary disease) [facility] Work Phone: evaluation note* Diagnosis Chronic obstructive pulmonary disease, unspecified COPD type (HCC) documented in this encounter [facility]* Diagnosis Nausea Nausea alone documented in this encounter [facility] note* Diagnosis Pneumonia due to infectious organism, unspecified laterality, unspecified part of lung- Primary Acute right ankle pain documented in this encounter [facility] note* Diagnosis Hyperlipidemia, unspecified hyperlipidemia type Vitamin D deficiency Unspecified vitamin D deficiency Chronic obstructive pulmonary disease, unspecified COPD type (HCC) documented [facility] encounter [facility]* Diagnosis Chronic obstructive pulmonary disease, unspecified COPD type (HCC) documented [facility]* Diagnosis Chronic obstructive pulmonary disease, unspecified COPD type (HCC) documented [facility] this [facility]* Diagnosis Chronic obstructive pulmonary disease, unspecified COPD type (HCC) documented [facility] encounter [facility]* Diagnosis Encounter for screening mammogram for breast cancer [facility] Anxiety- Primary Anxiety state, unspecified Alcohol-induced chronic pancreatitis (HCC) Chronic pancreatitis Chronic obstructive pulmonary disease, unspecified COPD type (HCC) Essential hypertension Unspecified essential hypertension [facility]* Diagnosis Pneumonia due to infectious organism, unspecified laterality, unspecified part of lung Acute right ankle pain documented in this encounter [facility] note* Diagnosis Chronic obstructive pulmonary disease, unspecified COPD type (HCC) documented in this encounter [facility] note* Diagnosis Numbness and tingling of both lower extremities [facility]* Diagnosis Chronic obstructive pulmonary disease, unspecified COPD type (HCC) documented in this encounter [facility] note* Diagnosis Chronic obstructive pulmonary disease, unspecified COPD type (HCC) [facility]* Diagnosis Anxiety- Primary Anxiety state, unspecified Alcohol-induced chronic pancreatitis (HCC) Chronic pancreatitis Nausea Nausea alone Encounter for immunization Need for other specified prophylactic vaccination against single bacterial disease Insomnia, unspecified type Leukocytosis, unspecified type documented in this encounter [facility] note* Diagnosis Shortness of breath- Primary Chronic obstructive pulmonary disease with acute exacerbation (HCC) Obstructive chronic bronchitis with exacerbation Upper abdominal pain Abdominal pain, other specified site Nausea Nausea alone Urinary incontinence, unspecified type Urinary frequency Elevated glucose Other abnormal glucose Tobacco use disorder Pulmonary emphysema, unspecified emphysema type (HCC) documented [facility]* Diagnosis Shortness of breath Chronic obstructive pulmonary disease with acute exacerbation (HCC) Obstructive chronic bronchitis with exacerbation Tobacco use disorder Pulmonary emphysema, unspecified emphysema type (HCC) documented [facility]* Diagnosis Chronic obstructive pulmonary disease, unspecified COPD type (HCC)- Primary Generalized abdominal tenderness without rebound tenderness Upper abdominal pain Abdominal pain, other specified site Elevated lipase Other nonspecific abnormal serum enzyme levels Nausea Nausea alone Alcoholic hepatitis without ascites Acute alcoholic hepatitis Alcohol use disorder, moderate, dependence (HCC) Acute pancreatitis, unspecified complication status, unspecified pancreatitis type [facility]* Diagnosis Chronic obstructive pulmonary disease, unspecified COPD type (HCC) documented [facility]* Diagnosis Alcoholic hepatitis without ascites Acute alcoholic hepatitis Acute pancreatitis, unspecified complication status, unspecified pancreatitis type Upper abdominal pain Abdominal pain, other specified site Nausea Nausea alone Elevated lipase Other nonspecific abnormal serum enzyme levels Generalized abdominal tenderness without rebound tenderness [facility] in [facility]* Diagnosis Vitamin D deficiency Unspecified vitamin D deficiency [facility]* Diagnosis Alcohol-induced chronic pancreatitis (HCC)- Primary Chronic pancreatitis Chronic recurrent pancreatitis (HCC) Chronic pancreatitis Chronic RUQ pain Abdominal pain, right upper quadrant Abdominal bloating Flatulence, eructation, and gas pain Nausea Nausea alone Gastroesophageal reflux disease without esophagitis Esophageal reflux documented in this encounter [facility] note* Diagnosis Cough with sputum- Primary Cough Essential hypertension Unspecified essential hypertension COPD with exacerbation (HCC) Obstructive chronic bronchitis with exacerbation COPD with exacerbation (HCC) Obstructive chronic bronchitis with exacerbation [facility]* Diagnosis COPD with exacerbation (HCC) Obstructive chronic bronchitis with exacerbation [facility]* Diagnosis Other chronic pancreatitis (HCC)- Primary [facility]* Diagnosis Chronic recurrent pancreatitis (HCC) Chronic pancreatitis Alcohol-induced chronic pancreatitis (HCC) Chronic pancreatitis Chronic RUQ pain Abdominal pain, right upper quadrant [facility]* Diagnosis Hyperlipidemia Other and unspecified hyperlipidemia [facility]* Diagnosis Hospital discharge follow-up- Primary Other follow-up examination Chronic recurrent pancreatitis (HCC) Chronic pancreatitis Chronic obstructive pulmonary disease, unspecified COPD type (HCC) Dysphagia, unspecified type Essential hypertension, benign Tobacco use disorder Smoker Tobacco use disorder [facility]* Diagnosis Chronic recurrent pancreatitis (HCC) Chronic pancreatitis Chronic obstructive pulmonary disease, unspecified COPD type (HCC) Hospital discharge follow-up Other follow-up examination documented in this encounter [facility] note* Diagnosis Onset Date Resolution Status Admit Date Acute hypoxic respiratory failure acute December 04, 2024 6:03pm Chronic pancreatitis chronic Lino h 2024 6:03pm COPD with acute exacerbation chronic December 04, 2024 6:03pm [facility] Work Phone: Evaluation note* Diagnosis Chronic obstructive pulmonary disease with acute exacerbation (HCC) Obstructive chronic bronchitis with exacerbation [facility]* Diagnosis Gout, unspecified cause, unspecified chronicity, unspecified site- Primary Calculus of pancreatic duct (HCC) Other specified disease of pancreas Chronic recurrent pancreatitis (HCC) Chronic pancreatitis Chronic obstructive pulmonary disease, unspecified COPD type (HCC) Pulmonary emphysema, unspecified emphysema type (HCC) Tobacco use disorder documented [facility]* Diagnosis Nausea Nausea alone documented in this encounter [facility] note* Diagnosis Hyperlipidemia, unspecified hyperlipidemia type [facility]* Diagnosis Other chronic pancreatitis (HCC) documented [facility] encounter [facility]* Diagnosis Chronic recurrent pancreatitis (HCC)- Primary Chronic pancreatitis documented [facility]* Diagnosis Hospital discharge follow-up- Primary Other follow-up examination Acute respiratory failure with hypoxia (HCC) Acute respiratory failure Chronic recurrent pancreatitis (HCC) Chronic pancreatitis Norovirus Enteritis due to Parnell virus Pneumonia of both lungs due to infectious organism, unspecified part of lung Presence of pancreatic duct stent Alcoholic hepatitis without ascites (HCC) Acute alcoholic hepatitis Alcohol use disorder, moderate, dependence (HCC) [facility] Diagnosis Chronic recurrent pancreatitis (HCC)- Primary Chronic pancreatitis [facility] Diagnosis Subclavian arterial stenosis- Primary Stricture [...] unspecified chronicity (HCC) [facility] Diagnosis Chronic pancreatitis, unspecified pancreatitis type (HCC)- Primary Generalized abdominal pain Abdominal pain, generalized [facility]* Diagnosis Encounter for screening mammogram for breast cancer documented [facility]* Diagnosis Hyperlipidemia Other and unspecified hyperlipidemia [facility]* Diagnosis Essential hypertension Unspecified essential hypertension [facility] Diagnosis Acute pancreatitis without infection or necrosis, unspecified pancreatitis type (HCC) Chronic pancreatitis, unspecified pancreatitis type (HCC) Generalized abdominal pain Abdominal pain, generalized [facility]* Diagnosis Subclavian artery stenosis, left- Primary Atherosclerosis of other specified arteries documented [facility] Diagnosis Chronic pancreatitis, unspecified pancreatitis type (HCC)- Primary Generalized abdominal pain Abdominal pain, generalized Chronic obstructive pulmonary disease with acute lower respiratory infection (HCC) Obstructive chronic bronchitis with exacerbation Dependence on supplemental oxygen Hearing loss of right ear, unspecified hearing loss type [facility] Diagnosis Chronic pancreatitis, unspecified pancreatitis type (HCC) Generalized abdominal pain Abdominal pain, generalized Nausea Nausea alone [facility] Author Carin Meraz [facility] January 02, 2024 10:42pm Note Date/Time January 02, 2024 10:1 0pm [facility] Medical Records Department [address] [place] [address] H&P Exam - Hospitalist 01/02/24 2208 MR#: [id number] Acct: [id number] Name: GRACIE BANUELOS Rep #:[id number] : 1965 58 From: Carin Meraz MD PCP: Anat Easton, SERVICE COUNTER CASHIER-C Status:ADM IN Location: [place] [address] HPI - General General Date of Admission: 01/02/24 Date of Service: 01/02/24 Chief Complaint: URI sxs, cough, dyspnea, worsening. HPI Narrative The patient is a 58 y/o F w/ PMHx: EtOH abuse, Tobacco use, COPD/Asthma w/ Chronic Hypoxic Respiratory Failure (PRN), HTN, HLD, Chronic anemia, Anxiety andDepression, Chronic pancreatitis associated with EtOH abuse who presents to the [facility] ED on 01/02/24 with history [...] 1, Ro[facility]phin 1 g [facility] Anemia Anxiety and depression Arthritis [...] DAILY BP 11/01/22 [History Last Taken Unknown] uqukwa-okxwvacr-kaawotx 24,000-76,000-120,000 unit capsule,delayed rel (Creon) 1cap PO [...] Allergy Other Verified 01/02/24 18:59 hydrocodone [From [place]] AdvReac Itching Verified 01/02/24 18:59 Family History [...] 81.7 H, Lymph % (Auto) 9.6 L, [place] % (Auto) 6.9, Eos % (Auto) 0.6, [...] with EtOH abuse who presents to the [facility] ED on 01/02/24 with history [...] Patient does not have healthcare power of bankruptcy attorney or living will in place but [...] Time: 16minutes. Charges/Coding Visit Charges Inpatient E&M: 16390 Init Hosp L3 Procedures Hospitalists Procedures: 54801 Advncd Care Plan 30 Min 01/02/24 2242 <Electronically signed by Carin Meraz MD> Cosigner Signature (if applicable): CC: SERVICE COUNTER CASHIERMiriam Coppola Older; Dr. Carin Meraz MD~ Signed [facility] Work Phone: History and physical note Author Pako Fernández [facility] Note Date/Time March 13, 2025 11:[address] [facility] Medical Records Department [address] [place] [address] History & Physical Exam 03/13/25 2320 MR#: [id number] Acct: [id number] Name: GRACIE BANUELOS Rep #:[id number] : 1965 59 From: Pako Fernández MD [...] several months. She was recently admitted to [facility] and treated by GI specialist Dr. Portillo. She had a surgery performed for her pancreatitis and a stent was placed this past Thursday. Patient states she has had worsening epigastric abdominal pain since discharge on Thursday. She denies fever, chills, shortness of breath, chest pain, diarrhea constipation or dysuria. Patient has been accepted to [facility] for transferfrom the emergency room, however, a bed is not available this evening and patient will be admitted temporarily in our facility while pending transfer to tertiary care facility to address pancreatic stent and acute pancreatitis. [facility] Medical History (Reviewed 02/08/25 @ 13:18 by Ani Eduardo SERVICE COUNTER CASHIER, SERVICE COUNTER CASHIER-C) Stenosis of left subclavian artery Pulmonary nodule [...] Allergy Other Verified 02/26/25 13:57 hydrocodone (From [place]) AdvReac Itching Verified 02/26/25 13:57 Family History (Reviewed 02/08/25 @ 13:18 by Ani Eduardo SERVICE COUNTER CASHIER, SERVICE COUNTER CASHIER-C) Mother Diabetes Hypertension Heart disease High cholesterol [...] (Auto) 83.5 H, Lymph% (Auto) 6.3 L, [place] % (Auto) 8.1, Eos % (Auto) 0.5, [...] Clarity Clear, Urine pH 7.0, Ur Specific [place] 1.005, Urine Protein 30 H, Urine Glucose [...] evidence of acute cardiopulmonary pathology. Reading Location: [id number] Assessment & Plan Assessment/Plan (1) Smoking greater than 30 pack years: (2) COPD (chronic obstructive pulmonary disease): QUALIFIERS: COPD type: emphysema Emphysema type: centrilobular Qualified Code(s): J43.2 - Centrilobular emphysema (3) Abdominal pain: (4) Chronic pancreatitis: QUALIFIERS: Pancreatitis type: alcohol induced Qualified Code(s):K86.0 - Alcohol-induced chronic pancreatitis PLAN: Plan 1. Acute on chronic pancreatitis?admit patient temporarily to our facility pending transfer to [facility], make n.p.o., IV normal saline [...] Elkins MD; Dr. Pako Fernández MD~ Signed [facility] Work Phone: Hospital Discharge instructions* Activity:activity as tolerated. * Labs 1 (Modify Template):Lab Test(s): RFPDate To Be Drawn: 10/30/22Call Results To: Soila Easton, COMPANY MARKER or Fax Results To: [phone]: PCP consider monitoring improvement of CHUY upon recent hospital admission * Oxygen:Administer oxygen at 2 liters/min via nasal cannula to maintain SpO2 % of 88-92 with activity. * Additional Orders:Additional Instructions: Dear Vin,You presented to us as transfer from [facility] for a possible biopsy of the right [...] with Primary Care ProviderScheduled Date/Time: 15-Dec-2022 16:00Location: [address] [place] [address] [address] [address] faxPhone Number: [phone]: Please bring your insurance card, photo id, a list of medication in the original bottle, any co-pays you may have, and the discharge summary * Follow Up Appointment 2:Physician/Dept/Service: Ophthalmology: Dr Ansari Date/Time: 03-Dec-2022 15:30Location: [facility] [address] , [address] [facility] [address]Plrfi Number: [phone]: Please bring your insurance card, photo id, a list of medication in the original bottle, any co-pays you may have, and the discharge summary * Follow Up Appointment 3:Physician/Dept/Service: Soila Easton, CNPLocation: [address] [facility] [address]Auvzp Number: or [facility] Additional Instructions Take medications as prescribed. Follow-up with your doctor.[facility] Work Phone: Hospital Discharge instructions Additional Instructions Follow-up with pain management on January 05 as scheduled. Quit smoking. Return with fever, increased pain, new or worsening symptoms.[facility] Work Phone: Hospital Discharge instructions Additional Instructions Your blood work and CT are normal but I this is a flareup of your chronic pancreatitis. I prescribed more Zofran. Use tramadol as needed for breakthrough pain. Follow-up with your GI specialist.[facility] Work Phone: Hospital Discharge instructionsAdditional Instructions Take [...] if your symptoms worsen or new symptoms develop.[facility] Work Phone: Hospital Discharge instructionsAdditional Instructions discussed with your PCP if they will bridge your pain medicines oxycodone. You are on tramadol. Take the medications prescribed by pain management. Follow-up with them.[facility] Work Phone: [facility] (n[facility] Diagnostic Procedure Only (Routine) - Authorized Specialty Diagnoses / Procedures Referred By Contac t Referred To Contact US IMAGING Diagnoses Alcohol-induced chronic pancreatitis (HCC) Alcoholic hepatitis without ascites Procedures US ABD RT UPPER QUADRANT US ABDOMINAL REAL TIME W/IMAGE LIMITED Soila Easton APRN.COMPANY MARKER [address] [place] [id number] Us Imaging Referral ID Status Reason Start Date Expiration Date Visits Requested Visits Authorized [id number] Authorized Auto-Generat ed Referral 04/17/2022 05/17/2023 1 1 * Consult, Test, Treat (Routine) - Authorized Specialty Diagnoses / Procedures Referred By Contac t Referred To Contact Gastroenterology Diagnoses Alcohol-induced chronic pancreatitis (HCC) Alcoholic hepatitis without ascites Procedures CONSULT TO GASTROENTEROLOGY OFFICE/OUTPATIENT [facility] MDM 60-74 MINUTES Soila Easton APRN.COMPANY MARKER [address] [place] [address] Referral ID Status Reason Start Date Expiration Date Visits Requested Visits Authorized [id number] Authorized PCP Requested Referral 04/17/2022 04/17/[address] [facility] for referral (narrative)* Diagnostic Procedure Only (Routine) - Closed Specialty Diagnoses / Procedures Referred By Contac t Referred To Contact US IMAGING Diagnoses Alcohol-induced chronic pancreatitis (HCC) Alcoholic hepatitis without ascites Procedures US ABD RT UPPER QUADRANT US ABDOMINAL REAL TIME W/IMAGE LIMITED Soila Easton APRN.COMPANY MARKER [address] [place] [address] Us Imaging Referral ID Status Reason Start Date Expiration Date V isits Requested Visits Authorized [id number] Closed Auto-Generate d Referral 04/17/2022 05/17/[address] [facility] for referral (narrative)* Diagnostic Procedure Only (Routine) - Pending Review Specialty Diagnoses / Procedures Referred By Travis melendez Referred To Contact BR IMAGING Diagnoses Encounter for screening mammogram for breast cancer Procedures SIMI SCREENING SCREENING MAMMOGRAPHY BI 2-[place] [address] [place] [address] [facility] [address] [place] [phone] Referral ID Status Reason Start Date Expiration Date Visits Requested Visits Authorized [id number] Pending Review Auto-Generat ed Referral 06/25/2022 07/25/[address] [facility] for referral (narrative)* Outpatient Procedure (Routine) - Authorized Specialty Diagnoses / Procedures Referred By Travis melendez Referred To Contact [facility] Diagnoses Numbness and tingling of both lower extremities Neuropathy Numbness and tingling of both feet Procedures EMG(NEURO/NI) NERVE CONDUCTION STUDIES 9-10 STUDIES Mariluz Verduzco PA-C [address] [place] [address] [facility] [address] [place] [address] Referral ID Status Reason Start Date Expiration Date Visits Requested Visits Authorized [id number] Authorized Auto-Generat ed Referral 11/26/2022 09/27/[address] [facility] for referral (narrative)* Diagnostic Procedure Only (Routine) - Pending Review Specialty Diagnoses / Procedures Referred By Travis t Referred To Contact BR IMAGING Diagnoses Encounter for screening mammogram for breast cancer Procedures SIMI SCREENING SCREENING MAMMOGRAPHY BI 2-VIEW BREAST INC Misbah Chanel MD [address] [place] [address] [facility] [address] [place] [address] Referral ID Status Reason Start Date Expiration Date Visits Requested Visits Authorized [id number] Pending Review Auto-Generat ed Referral 06/03/2023 07/02/[address] [facility] for referral (narrative)* Diagnostic Procedure Only (Routine) - New Request Specialty Diagnoses / Procedures Referred By Travis melendez Referred To Contact BR IMAGING Diagnoses Encounter for screening mammogram for breast cancer Procedures SIMI SCREENING W CYNTHIA SCREENING DIGITAL BREAST TOMOSYNTHESIS BI SCREENING MAMMOGRAPHY BI 2-VIEW BREAST INC CAD Misbah Elkins MD [address] [place] [address] [facility] Imaging [address] [place] [address] Referral ID Status Reason Start Date Expiration Date Visits Requested Visits Authorized [id number] New Request Auto-Generat ed Referral 05/04/2024 06/03/[address] [facility] for referral (narrative)* Diagnostic Procedure Only (Routine) - Closed Specialty Diagnoses / Procedures Referred By Travis melendez Referred To Contact XR IMAGING Diagnoses Numbness and tingling of both lower extremities Procedures XR LUMBAR GENERAL 3V AP/LAT/L5-S1 RADEX SPINE LUMBOSACRAL 2/3 VIEWS Misbah Elkins MD [address] [place] [address] [place] [address] Referral ID Status Reason Start Date Expiration Date V isits Requested Visits Authorized [id number] Closed Auto-Generate d Referral 11/25/2022 12/25/[address] [facility] for referral (narrative)* Diagnostic Procedure Only (Routine) - Authorized Specialty Diagnoses / Procedures Referred By Travis melendez Referred To Contact US IMAGING Diagnoses Upper abdominal pain Nausea Procedures US ABD RIGHT UPPER QUADRANT US ABDOMINAL REAL TIME W/IMAGE LIMITED Soila Easton APRN.COMPANY MARKER [address] [place] [address] [place] [address] Referral ID Status Reason Start Date Expiration Date Visits Requested Visits Authorized [id number] Authorized Auto-Generat ed Referral 09/09/2025 1 1 [facility] Outpatient Procedure (Routine) - New Request Specialty Diagnoses / Procedures Referred By Contac t Referred To Contact [facility] Diagnoses Chronic recurrent pancreatitis (HCC) Alcohol-induced chronic pancreatitis (HCC) Chronic RUQ pain Procedures EGD - THERAPEUTIC, EUS, OR TUBE INTERVENTIONS EGD TRANSORAL BIOPSY SINGLE/MULTIPLE Juan Senior APRN.CNP [address] [place] [address] [facility] [address] [place] [phone] Referral ID Status Reason Start Date Expiration Date Visits Requested Visits Authorized [id number] New Request Auto-Generat ed Referral 11/02/2024 11/02/2025 1 1 * Consult, Test, Treat (Routine) - Pending Review Specialty Diagnoses / Procedures Referred By Contac t Referred To Contact [facility] Diagnoses Chronic recurrent pancreatitis (HCC) Alcohol-induced chronic pancreatitis (HCC) Chronic RUQ pain Procedures [facility]SULT TO [facility] ([facility]) OFFICE/OUTPATIENT NEW HIGH MDM 60 MINUTES Juan Senior APRN.COMPANY MARKER [address] [place] [phone] Referral ID Status Reason Start Date Expiration Date Visits Requested Visits Authorized [id number] Pending Review PCP Requested Referral 11/02/2024 01/31/2025 1 1 [facility])No reason for referral information availableWPremier Health [facility] Work Phone: Reason for visit Narrative* Diagnostic Procedure Only (Routine) - Closed Specialty Diagnoses / Procedures Referred By Contac t Referred To Contact XR IMAGING Diagnoses Numbness and tingling of both lower extremities Procedures XR LUMBAR GENERAL 3V AP/LAT/L5-S1 RADEX SPINE LUMBOSACRAL 2/3 VIEWS Misbah Elkins MD [address] [place] [address] Xr Imaging [facility] [address] Referral ID Status Reason Start Date Expiration Date V isits Requested Visits Authorized [id number] Closed Auto-Generate d Referral 11/25/2022 12/25/[address] [facility] for visit Narrative* Outpatient Procedure (Routine) - Closed Specialty Diagnoses / Procedures Referred By Contac t Referred To Contact [facility] Diagnoses Chronic recurrent pancreatitis (HCC) Alcohol-induced chronic pancreatitis (HCC) Chronic RUQ pain Procedures EGD - THERAPEUTIC, EUS, OR TUBE INTERVENTIONS EGD TRANSORAL BIOPSY SINGLE/MULTIPLE Juan Senior APRN.COMPANY MARKER [address] [place] [address] Phone: tel: fax: [facility] [address] [place], [place] [phone] Referral ID Status Reason Start Date Expiration Date V isits Requested Visits Authorized [id number] Closed Auto-Generate d Referral 11/02/2024 11/02/[address] [facility] for visit Narrative* Outpatient Procedure (Routine) - Closed Specialty Diagnoses / Procedures Referred By Contac t Referred To Contact [facility] Diagnoses Other chronic pancreatitis (HCC) Procedures ERCP ERCP DX COLLECTION SPECIMEN BRUSHING/WASHING Jane Farrell MD [address] [address] Phone: tel: fax: [facility] [address] [place] [address] Referral ID Status Reason Start Date Expiration Date V isits Requested Visits Authorized [id number] Closed Auto-Generate d Referral 12/06/2024 09/27/2025 1 1 [facility] Summary Purpose Family History No Family [...] FoundDocuments on File Type Date Recorded 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 Advance Directive(s) 03/16/2025 3:08 PM Date Activated Date Inactivated Comments 03/15/2025 11:09 PM Question Answer Comments Full Code Order Discussed With: Discussion Not M edically Appropriate Documents on File Type Date Recorded 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 Advance Directive(s) 01/10/2021 8:39 AM Advance Directive(s) 12/28/2020 10:28 AM Advance Directive(s) 12/05/2019 6:41 AM Advance Directive Response Recorded Date/ Time Advance Directives No October 11:35am Living Will No March 03, 2022 1 2:49pm Power of Manager Human Resources No March 03, 2022 12:49pm Documents on File Type Date Recorded 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 Advance Directive(s) 01/10/2021 8:39 AM Advance Directive(s) 12/28/2020 10:28 AM Advance Directive(s) 12/05/2019 6:41 AM Advance Directive Response Recorded Date/ Time Advance Directives No October 10:35am Living Will No October 19 7:08pm Power of Manager Human Resources No October 19, 2022 7:08pm Latest Code [...] Will No November 01 11:45pm Power of Manager Human Resources No November 01, 2022 11:45pm Advance Directive Response Recorded Date/ Time Advance Directives No October 11:35am Living Will No June 02, 2 023 3:53pm Power of Manager Human Resources No June 02, 2023 3:53pm Advance Directive Response Recorded Date/ Time Advance Directives No October 11:35am Living Will No July 08 6:10pm Power of Manager Human Resources No July 08, 2023 6:10pm Advance Directive Response Recorded Date/ Time Advance Directives No October 11:35am Living Will No January 02, 2024 7:23pm Power of Manager Human Resources No January 01 7:23pm Advance Directive Response Recorded Date/ Time Advance Directives No October 11:35am Living Will No January 02, 2024 11:15pm Power of Manager Human Resources No January 01 11:15pm Advance Directive Response Recorded Date/ Time Advance Directives No October 11:35am Living Will No January 19, 2024 11:39pm Power of Manager Human Resources No January 18 11:39pm Advance Directive Response Recorded Date/ Time Living Will No December 04, 2024 4:02pm Power of Manager Human Resources No December 04 4:02pm Advance Directives No October 11:35am Advance Directive Response Recorded Date/ Time Living Will No December 04, 2024 8:21pm Power of Manager Human Resources No December 04 8:21pm Advance Directives No October 11:35am Advance Directive Response Recorded Date/ Time Living Will No December 04, 2024 8:21pm Do you have a Healthcare Power of Manager Human Resources? No December 04, 2024 8:21pm Living Will No December 24, 2024 8:13pm Do you have a Healthcare Power of Manager Human Resources? No December 24, 2024 8:13pm Advance Directives No October 11:35am Advance Directive Response Recorded Date/ Time Living Will No December 04, 2024 8:21pm Do you have a Healthcare Power of Manager Human Resources? No December 04, 2024 8:21pm Living Will No December 24, 2024 8:13pm Do you have a Healthcare Power of Manager Human Resources? No December 24, 2024 8:13pm Living Will No January 01, 2025 8:27pm Do you have a Healthcare Power of Manager Human Resources? No January 01, 2025 8:27pm Advance Directives No October 11:35am Advance Directive Response Recorded Date/ Time Living Will No January 19, 2024 11:39pm Do you have a Healthcare Power of Manager Human Resources? No January 19, 2024 11:39pm Living Will No December 04, 2024 8:21pm Do you have a Healthcare Power of Manager Human Resources? No December 04, 2024 8:21pm Living Will No December 24, 2024 8:13pm Do you have a Healthcare Power of Manager Human Resources? No December 24, 2024 8:13pm Living Will No January 01, 2025 8:27pm Do you have a Healthcare Power of Manager Human Resources? No January 01, 2025 8:27pm Do you have a Healthcare Power of Manager Human Resources? Yes January 27, 2025 10:20am Name of Medical Power of Manager Human Resources sister January 27, 2025 10:20am Advance Directives No October 11:35am Advance Directive Response Recorded Date/ Time Living Will No January 19, 2024 11:39pm Do you have a Healthcare Power of Manager Human Resources? No January 19, 2024 11:39pm Living Will No December 04, 2024 8:21pm Do you have a Healthcare Power of Manager Human Resources? No December 04, 2024 8:21pm Living Will No December 24, 2024 8:13pm Do you have a Healthcare Power of Manager Human Resources? No December 24, 2024 8:13pm Living Will No January 01, 2025 8:27pm Do you have a Healthcare Power of Manager Human Resources? No January 01, 2025 8:27pm Do you have a Healthcare Power of Manager Human Resources? Yes January 27, 2025 10:20am Name of Medical Power of Manager Human Resources sister January 27, 2025 10:20am Do you have a Healthcare Power of Manager Human Resources? No February 26, 2025 2:12pm Advance Directives No October 11:35am Advance Directive Response Recorded Date/ Time Living Will No January 19, 2024 11:39pm Do you have a Healthcare Power of Manager Human Resources? No January 19, 2024 11:39pm Living Will No December 04, 2024 8:21pm Do you have a Healthcare Power of Manager Human Resources? No December 04, 2024 8:21pm Living Will No December 24, 2024 8:13pm Do you have a Healthcare Power of Manager Human Resources? No December 24, 2024 8:13pm Living Will No January 01, 2025 8:27pm Do you have a Healthcare Power of Manager Human Resources? No January 01, 2025 8:27pm Do you have a Healthcare Power of Manager Human Resources? Yes January 27, 2025 10:20am Name of Medical Power of Manager Human Resources sister January 27, 2025 10:20am Do you have a Healthcare Power of Manager Human Resources? No March 13, 2025 12:02pm Do you have a Healthcare Power of Manager Human Resources? No February 26, 2025 2:12pm Advance Directives No October 11:35am Advance Directive Response Recorded Date/ Time Living Will No January 19, 2024 11:39pm Do you have a Healthcare Power of Manager Human Resources? No January 19, 2024 11:39pm Living Will No December 04, 2024 8:21pm Do you have a Healthcare Power of Manager Human Resources? No December 04, 2024 8:21pm Living Will No December 24, 2024 8:13pm Do you have a Healthcare Power of Manager Human Resources? No December 24, 2024 8:13pm Living Will No January 01, 2025 8:27pm Do you have a Healthcare Power of Manager Human Resources? No January 01, 2025 8:27pm Do you have a Healthcare Power of Manager Human Resources? Yes January 27, 2025 10:20am Name of Medical Power of Manager Human Resources sister January 27, 2025 10:20am Do you have a Healthcare Power of Manager Human Resources? No March 14, 2025 1:26am Do you have a Healthcare Power of Manager Human Resources? 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 No January 19, 2024 11:39pm Living Will No December 24, 2024 8:13pm Do you have a Healthcare Power of Manager Human Resources? No December 24, 2024 8:13pm Living Will No January 01, 2025 8:27pm Do you have a Healthcare Power of Manager Human Resources? No January 01, 2025 8:27pm Do you have a Healthcare Power of Manager Human Resources? Yes January 27, 2025 10:20am Name of Medical Power of Manager Human Resources sister January 27, 2025 10:20am Do you have a Healthcare Power of Manager Human Resources? No March 14, 2025 1:26am Do you have a Healthcare Power of Manager Human Resources? No April 15, 2025 10:57pm Do you have a Healthcare Power of Manager Human Resources? No February 26, 2025 2:12pm Advance Directives No October 11:35am Advance Directive Response Recorded Date/ Time Living Will No January 19, 2024 11:39pm Do you have a Healthcare Power of Manager Human Resources? No January 19, 2024 11:39pm Living Will No December 24, 2024 8:13pm Do you have a Healthcare Power of Manager Human Resources? No December 24, 2024 8:13pm Living Will No January 01, 2025 8:27pm Do you have a Healthcare Power of Manager Human Resources? No January 01, 2025 8:27pm Do you have a Healthcare Power of Manager Human Resources? Yes January 27, 2025 10:20am Name of Medical Power of Manager Human Resources sister January 27, 2025 10:20am Do you have a Healthcare Power of Manager Human Resources? No March 14, 2025 1:26am Do you have a Healthcare Power of Manager Human Resources? Yes April 16, 2025 2:36am Do you have a Healthcare Power of Manager Human Resources? No February 26, 2025 2:12pm Advance Directives No October 11:35am Advance Directive Response Recorded Date/ Time Living Will No January 19, 2024 11:39pm Do you have a Healthcare Power of Manager Human Resources? No January 19, 2024 11:39pm Living Will No January 01, 2025 8:27pm Do you have a Healthcare Power of Manager Human Resources? No January 01, 2025 8:27pm Do you have a Healthcare Power of Manager Human Resources? Yes January 27, 2025 10:20am Name of Medical Power of Manager Human Resources sister January 27, 2025 10:20am Do you have a Healthcare Power of Manager Human Resources? No March 14, 2025 1:26am Do you have a Healthcare Power of Manager Human Resources? Yes April 16, 2025 2:36am Do you have a Healthcare Power of Manager Human Resources? No February 26, 2025 2:12pm Advance Directives No October 11:35am Advance Directive Response Recorded Date/ Time Living Will No January 19, 2024 11:39pm Do you have a Healthcare Power of Manager Human Resources? No January 19, 2024 11:39pm Do you have a Healthcare Power of Manager Human Resources? Yes January 27, 2025 10:20am Name of Medical Power of Manager Human Resources sister January 27, 2025 10:20am Do you have a Healthcare Power of Manager Human Resources? No March 14, 2025 1:26am Do you have a Healthcare Power of Manager Human Resources? Yes April 16, 2025 2:36am Do you have a Healthcare Power of Manager Human Resources? No February 26, 2025 2:12pm Advance Directives No October 11:35am Advance Directive Response Recorded Date/ Time Living Will No January 19, 2024 11:39pm Do you have a Healthcare Power of Manager Human Resources? No January 19, 2024 11:39pm Do you have a Healthcare Power of Manager Human Resources? Yes January 27, 2025 10:20am Name of Medical Power of Manager Human Resources sister January 27, 2025 10:20am Do you have a Healthcare Power of Manager Human Resources? No March 14, 2025 1:26am Do you have a Healthcare Power of Manager Human Resources? Yes April 16, 2025 2:36am Do you have a Healthcare Power of Manager Human Resources? No May 10, 2025 9:31pm Do you have a Healthcare Power of Manager Human Resources? No February 26, 2025 2:12pm Advance Directives No October 11:35am Advance Directive Response Recorded Date/ Time Living Will No January 19, 2024 11:39pm Do you have a Healthcare Power of Manager Human Resources? No January 19, 2024 11:39pm Do you have a Healthcare Power of Manager Human Resources? Yes January 27, 2025 10:20am Name of Medical Power of Manager Human Resources sister January 27, 2025 10:20am Do you have a Healthcare Power of Manager Human Resources? No March 14, 2025 1:26am Do you have a Healthcare Power of Manager Human Resources? Yes April 16, 2025 2:36am Do you have a Healthcare Power of Manager Human Resources? No May 10, 2025 9:31pm Do you have a Healthcare Power of Manager Human Resources? No February 26, 2025 2:12pm Do you have a Healthcare Power of Manager Human Resources? Yes May 24, 2025 7:49pm Advance Directives No October 11:35am Advance Directive Response Recorded Date/ Time Living Will No January 19, 2024 11:39pm Do you have a Healthcare Power of Manager Human Resources? No January 19, 2024 11:39pm Do you have a Healthcare Power of Manager Human Resources? No March 14, 2025 1:26am Do you have a Healthcare Power of Manager Human Resources? Yes April 16, 2025 2:36am Do you have a Healthcare Power of Manager Human Resources? No May 10, 2025 9:31pm Do you have a Healthcare Power of Manager Human Resources? No February 26, 2025 2:12pm Do you have a Healthcare Power of Manager Human Resources? Yes May 24, 2025 7:49pm Advance Directives No October 11:35am Advance Directive Response Recorded Date/ Time Do you have a Healthcare Power of Manager Human Resources? No March 14, 2025 1:26am Do you have a Healthcare Power of Manager Human Resources? Yes April 16, 2025 2:36am Do you have a Healthcare Power of Manager Human Resources? No May 10, 2025 9:31pm Do you have a Healthcare Power of Manager Human Resources? Yes July 10, 2025 6:58am Do you have a Healthcare Power of Manager Human Resources? No July 04, 2025 9:29am Do you have a Healthcare Power of Manager Human Resources? Yes May 24, 2025 7:49pm Do you have a Healthcare Power of Manager Human Resources? No July 06, 2025 8:23pm Advance Directives [...] COMPLICATION WITH STENT Ju ne 2024 11:28pm Reason for Visit Admit Date [...] 2024 7:08pm PANCREATITIS, COMPLICATION WITH STENT Ju 2024 7:31am follow up April 10, 2025 [...] 2024 7:08pm PANCREATITIS, COMPLICATION WITH STENT Ju 2024 7:31am follow up April 10, 2025 [...] 2025 11:2 0pm PANCREATITIS, COMPLICATION WITH STENT Rosenda ne 2024 11:28pm PANCREATITIS, COMPLICATION WITH STENT Ju ne 2024 10:25am PANCREATITIS, COMPLICATION WITH STENT Rosenda 2024 8:20am PANCREATITIS, COMPLICATION WITH STENT Ju 2024 7:08pm PANCREATITIS, COMPLICATION WITH STENT Ju 2024 7:31am follow up April 10, 2025 [...] 2024 7:08pm PANCREATITIS, COMPLICATION WITH STENT Ju [place] 2024 7:31am follow up April 10, 2025 [...] lower extremities Procedures CONSULT TO NEUROLOGY OFFICE/OUTPATIENT [facility] 60-74 MINUTES Misbah Elkins MD [address] [place] [address] Referral ID Status Reason Start Date Expiration Date Visits Requested Visits Authorized [id number] Authorized PCP Requested Referral 11/25/2022 11/25/2023 1 1 Specialty Diagnoses / Procedures Referred By Contac t Referred To Contact XR IMAGING Diagnoses Numbness and tingling of both lower extremities Procedures XR LUMBAR GENERAL 3V AP/LAT/L5-S1 RADEX SPINE LUMBOSACRAL 2/3 VIEWS Misbah Elkins MD [address] [place] [address] Xr Imaging Referral ID Status Reason Start Date Expiration Date V isits Requested Visits Authorized [id number] Closed Auto-Generate d Referral 11/25/2022 12/25/2023 1 1 Specialty Diagnoses / Procedures Referred By Contac t Referred To Contact CT IMAGING Diagnoses Alcoholic hepatitis without ascites Acute pancreatitis, unspecified complication status, unspecified pancreatitis type Upper abdominal pain Nausea Elevated lipase Generalized abdominal tenderness without rebound tenderness Procedures CT ABD/PEL W IVCON CT ABD & PELVIS W/CONTRAST Soila Easton APRN.COMPANY MARKER [address] [place] [address] [place] [address] Referral ID Status Reason Start Date Expiration Date Visits Requested Visits Authorized [id number] Pending Review Auto-Generat ed Referral 09/14/2025 1 1 Additional Source Comments INFORMATION SOURCE (unrecogn ized section and content) DATE CREATED AUTHOR 03/24/2018 [facility] ([place]) DATE CREATED AUTHOR AUTHOR'S ORGANIZ ATION 12/05/2019 [facility] DATE CREATED AUTHOR AUTHOR'S ORGANIZ ATION 12/07/2019 [facility] DATE CREATED AUTHOR AUTHOR'S ORGANIZ ATION 11/07/2022 [facility] DATE CREATED AUTHOR AUTHOR'S ORGANIZ ATION 12/27/2022 [employer] DATE CREATED AUTHOR AUTHOR'S ORGANIZ ATION 06/12/2023 [facility] DATE CREATED AUTHOR AUTHOR'S ORGANIZ ATION 04/21/2025 [facility] DATE CREATED AUTHOR AUTHOR'S ORGANIZ ATION 07/06/2025 [facility] DATE CREATED AUTHOR AUTHOR'S ORGANIZ ATION 07/12/2025 [facility] Source Comments (unrecognize d section and content) In the event this informatio n is protected by the Federal Confidentiality of Alcohol and Drug Abuse Patient Records regulations: The Federal rules restrict any use of the information to criminally investigate or prosecute any alcohol or drug abuse patient.[facility] the event this information is protected by the Federal Confidentiality of Alcohol and Drug Abuse Patient Records regulations: The Federal rules restrict any use of the information to criminally investigate or prosecute any alcohol or drug abuse patient.[facility] HospitalIn the event this information is protected by the Federal Confidentiality of Alcohol and Drug Abuse Patient Records regulations: The Federal rules restrict any use of the information to criminally investigate or prosecute any alcohol or drug abuse patient.[facility] HospitalIn the event this information is protected by the Federal Confidentiality of Alcohol and Drug Abuse Patient Records regulations: The Federal rules restrict any use of the information to criminally investigate or prosecute any alcohol or drug abuse patient.[facility] HospitalIn the event this information is protected by the Federal Confidentiality of Alcohol and Drug Abuse Patient Records regulations: The Federal rules restrict any use of the information to criminally investigate or prosecute any alcohol or drug abuse patient.[facility] HospitalIn the event this information is protected by the Federal Confidentiality of Alcohol and Drug Abuse Patient Records regulations: The Federal rules restrict any use of the information to criminally investigate or prosecute any alcohol or drug abuse patient.[facility] HospitalIn the event this information is protected by the Federal Confidentiality of Alcohol and Drug Abuse Patient Records regulations: The Federal rules restrict any use of the information to criminally investigate or prosecute any alcohol or drug abuse patient.[facility] HospitalIn the event this information is protected by the Federal Confidentiality of Alcohol and Drug Abuse Patient Records regulations: The Federal rules restrict any use of the information to criminally investigate or prosecute any alcohol or drug abuse patient.[facility] HospitalIn the event this information is protected by the Federal Confidentiality of Alcohol and Drug Abuse Patient Records regulations: The Federal rules restrict any use of the information to criminally investigate or prosecute any alcohol or drug abuse patient.[facility] HospitalIn the event this information is protected by the Federal Confidentiality of Alcohol and Drug Abuse Patient Records regulations: The Federal rules restrict any use of the information to criminally investigate or prosecute any alcohol or drug abuse patient.[facility] HospitalIn the event this information is protected by the Federal Confidentiality of Alcohol and Drug Abuse Patient Records regulations: The Federal rules restrict any use of the information to criminally investigate or prosecute any alcohol or drug abuse patient.[facility] HospitalIn the event this information is protected by the Federal Confidentiality of Alcohol and Drug Abuse Patient Records regulations: The Federal rules restrict any use of the information to criminally investigate or prosecute any alcohol or drug abuse patient.[facility] HospitalIn the event this information is protected by the Federal Confidentiality of Alcohol and Drug Abuse Patient Records regulations: The Federal rules restrict any use of the information to criminally investigate or prosecute any alcohol or drug abuse patient.[facility] HospitalIn the event this information is protected by the Federal Confidentiality of Alcohol and Drug Abuse Patient Records regulations: The Federal rules restrict any use of the information to criminally investigate or prosecute any alcohol or drug abuse patient.[facility] HospitalIn the event this information is protected by the Federal Confidentiality of Alcohol and Drug Abuse Patient Records regulations: The Federal rules restrict any use of the information to criminally investigate or prosecute any alcohol or drug abuse patient.[facility] HospitalIn the event this information is protected by the Federal Confidentiality of Alcohol and Drug Abuse Patient Records regulations: The Federal rules restrict any use of the information to criminally investigate or prosecute any alcohol or drug abuse patient.[facility] HospitalIn the event this information is protected by the Federal Confidentiality of Alcohol and Drug Abuse Patient Records regulations: The Federal rules restrict any use of the information to criminally investigate or prosecute any alcohol or drug abuse patient.[facility] HospitalIn the event this information is protected by the Federal Confidentiality of Alcohol and Drug Abuse Patient Records regulations: The Federal rules restrict any use of the information to criminally investigate or prosecute any alcohol or drug abuse patient.[facility] HospitalIn the event this information is protected by the Federal Confidentiality of Alcohol and Drug Abuse Patient Records regulations: The Federal rules restrict any use of the information to criminally investigate or prosecute any alcohol or drug abuse patient.[facility] HospitalIn the event this information is protected by the Federal Confidentiality of Alcohol and Drug Abuse Patient Records regulations: The Federal rules restrict any use of the information to criminally investigate or prosecute any alcohol or drug abuse patient.[facility] HospitalIn the event this information is protected by the Federal Confidentiality of Alcohol and Drug Abuse Patient Records regulations: The Federal rules restrict any use of the information to criminally investigate or prosecute any alcohol or drug abuse patient.[facility] HospitalIn the event this information is protected by the Federal Confidentiality of Alcohol and Drug Abuse Patient Records regulations: The Federal rules restrict any use of the information to criminally investigate or prosecute any alcohol or drug abuse patient.[facility] HospitalIn the event this information is protected by the Federal Confidentiality of Alcohol and Drug Abuse Patient Records regulations: The Federal rules restrict any use of the information to criminally investigate or prosecute any alcohol or drug abuse patient.[facility] HospitalIn the event this information is protected by the Federal Confidentiality of Alcohol and Drug Abuse Patient Records regulations: The Federal rules restrict any use of the information to criminally investigate or prosecute any alcohol or drug abuse patient.[facility] HospitalIn the event this information is protected by the Federal Confidentiality of Alcohol and Drug Abuse Patient Records regulations: The Federal rules restrict any use of the information to criminally investigate or prosecute any alcohol or drug abuse patient.[facility] HospitalIn the event this information is protected by the Federal Confidentiality of Alcohol and Drug Abuse Patient Records regulations: The Federal rules restrict any use of the information to criminally investigate or prosecute any alcohol or drug abuse patient.[facility] HospitalIn the event this information is protected by the Federal Confidentiality of Alcohol and Drug Abuse Patient Records regulations: The Federal rules restrict any use of the information to criminally investigate or prosecute any alcohol or drug abuse patient.[facility] HospitalIn the event this information is protected by the Federal Confidentiality of Alcohol and Drug Abuse Patient Records regulations: The Federal rules restrict any use of the information to criminally investigate or prosecute any alcohol or drug abuse patient.[facility] HospitalIn the event this information is protected by the Federal Confidentiality of Alcohol and Drug Abuse Patient Records regulations: The Federal rules restrict any use of the information to criminally investigate or prosecute any alcohol or drug abuse patient.[facility] HospitalIn the event this information is protected by the Federal Confidentiality of Alcohol and Drug Abuse Patient Records regulations: The Federal rules restrict any use of the information to criminally investigate or prosecute any alcohol or drug abuse patient.[facility] HospitalIn the event this information is protected by the Federal Confidentiality of Alcohol and Drug Abuse Patient Records regulations: The Federal rules restrict any use of the information to criminally investigate or prosecute any alcohol or drug abuse patient.[facility] HospitalIn the event this information is protected by the Federal Confidentiality of Alcohol and Drug Abuse Patient Records regulations: The Federal rules restrict any use of the information to criminally investigate or prosecute any alcohol or drug abuse patient.[facility] HospitalIn the event this information is protected by the Federal Confidentiality of Alcohol and Drug Abuse Patient Records regulations: The Federal rules restrict any use of the information to criminally investigate or prosecute any alcohol or drug abuse patient.[facility] HospitalIn the event this information is protected by the Federal Confidentiality of Alcohol and Drug Abuse Patient Records regulations: The Federal rules restrict any use of the information to criminally investigate or prosecute any alcohol or drug abuse patient.[facility] HospitalIn the event this information is protected by the Federal Confidentiality of Alcohol and Drug Abuse Patient Records regulations: The Federal rules restrict any use of the information to criminally investigate or prosecute any alcohol or drug abuse patient.[facility] HospitalIn the event this information is protected by the Federal Confidentiality of Alcohol and Drug Abuse Patient Records regulations: The Federal rules restrict any use of the information to criminally investigate or prosecute any alcohol or drug abuse patient.[facility] HospitalIn the event this information is protected by the Federal Confidentiality of Alcohol and Drug Abuse Patient Records regulations: The Federal rules restrict any use of the information to criminally investigate or prosecute any alcohol or drug abuse patient.[facility] HospitalIn the event this information is protected by the Federal Confidentiality of Alcohol and Drug Abuse Patient Records regulations: The Federal rules restrict any use of the information to criminally investigate or prosecute any alcohol or drug abuse patient.[facility] HospitalIn the event this information is protected by the Federal Confidentiality of Alcohol and Drug Abuse Patient Records regulations: The Federal rules restrict any use of the information to criminally investigate or prosecute any alcohol or drug abuse patient.[facility] HospitalIn the event this information is protected by the Federal Confidentiality of Alcohol and Drug Abuse Patient Records regulations: The Federal rules restrict any use of the information to criminally investigate or prosecute any alcohol or drug abuse patient.[facility] HospitalIn the event this information is protected by the Federal Confidentiality of Alcohol and Drug Abuse Patient Records regulations: The Federal rules restrict any use of the information to criminally investigate or prosecute any alcohol or drug abuse patient.[facility] HospitalIn the event this information is protected by the Federal Confidentiality of Alcohol and Drug Abuse Patient Records regulations: The Federal rules restrict any use of the information to criminally investigate or prosecute any alcohol or drug abuse patient.[facility] HospitalIn the event this information is protected by the Federal Confidentiality of Alcohol and Drug Abuse Patient Records regulations: The Federal rules restrict any use of the information to criminally investigate or prosecute any alcohol or drug abuse patient.[facility] HospitalIn the event this information is protected by the Federal Confidentiality of Alcohol and Drug Abuse Patient Records regulations: The Federal rules restrict any use of the information to criminally investigate or prosecute any alcohol or drug abuse patient.[facility] HospitalIn the event this information is protected by the Federal Confidentiality of Alcohol and Drug Abuse Patient Records regulations: The Federal rules restrict any use of the information to criminally investigate or prosecute any alcohol or drug abuse patient.[facility] HospitalIn the event this information is protected by the Federal Confidentiality of Alcohol and Drug Abuse Patient Records regulations: The Federal rules restrict any use of the information to criminally investigate or prosecute any alcohol or drug abuse patient.[facility] HospitalIn the event this information is protected by the Federal Confidentiality of Alcohol and Drug Abuse Patient Records regulations: The Federal rules restrict any use of the information to criminally investigate or prosecute any alcohol or drug abuse patient.[facility] HospitalIn the event this information is protected by the Federal Confidentiality of Alcohol and Drug Abuse Patient Records regulations: The Federal rules restrict any use of the information to criminally investigate or prosecute any alcohol or drug abuse patient.[facility] HospitalIn the event this information is protected by the Federal Confidentiality of Alcohol and Drug Abuse Patient Records regulations: The Federal rules restrict any use of the information to criminally investigate or prosecute any alcohol or drug abuse patient.[facility] HospitalIn the event this information is protected by the Federal Confidentiality of Alcohol and Drug Abuse Patient Records regulations: The Federal rules restrict any use of the information to criminally investigate or prosecute any alcohol or drug abuse patient.[facility] HospitalIn the event this information is protected by the Federal Confidentiality of Alcohol and Drug Abuse Patient Records regulations: The Federal rules restrict any use of the information to criminally investigate or prosecute any alcohol or drug abuse patient.[facility] HospitalIn the event this information is protected by the Federal Confidentiality of Alcohol and Drug Abuse Patient Records regulations: The Federal rules restrict any use of the information to criminally investigate or prosecute any alcohol or drug abuse patient.[facility] HospitalIn the event this information is protected by the Federal Confidentiality of Alcohol and Drug Abuse Patient Records regulations: The Federal rules restrict any use of the information to criminally investigate or prosecute any alcohol or drug abuse patient.[facility]In the event this information is protected by the Federal Confidentiality of Alcohol and Drug Abuse Patient Records regulations: The Federal rules restrict any use of the information to criminally investigate or prosecute any alcohol or drug abuse patient.[facility] HospitalIn the event this information is protected by the Federal Confidentiality of Alcohol and Drug Abuse Patient Records regulations: The Federal rules restrict any use of the information to criminally investigate or prosecute any alcohol or drug abuse patient.[facility] HospitalIn the event this information is protected by the Federal Confidentiality of Alcohol and Drug Abuse Patient Records regulations: The Federal rules restrict any use of the information to criminally investigate or prosecute any alcohol or drug abuse patient.[facility] HospitalIn the event this information is protected by the Federal Confidentiality of Alcohol and Drug Abuse Patient Records regulations: The Federal rules restrict any use of the information to criminally investigate or prosecute any alcohol or drug abuse patient.[facility] HospitalIn the event this information is protected by the Federal Confidentiality of Alcohol and Drug Abuse Patient Records regulations: The Federal rules restrict any use of the information to criminally investigate or prosecute any alcohol or drug abuse patient.[facility] HospitalIn the event this information is protected by the Federal Confidentiality of Alcohol and Drug Abuse Patient Records regulations: The Federal rules restrict any use of the information to criminally investigate or prosecute any alcohol or drug abuse patient.[facility] HospitalIn the event this information is protected by the Federal Confidentiality of Alcohol and Drug Abuse Patient Records regulations: The Federal rules restrict any use of the information to criminally investigate or prosecute any alcohol or drug abuse patient.[facility] HospitalIn the event this information is protected by the Federal Confidentiality of Alcohol and Drug Abuse Patient Records regulations: The Federal rules restrict any use of the information to criminally investigate or prosecute any alcohol or drug abuse patient.[facility] HospitalIn the event this information is protected by the Federal Confidentiality of Alcohol and Drug Abuse Patient Records regulations: The Federal rules restrict any use of the information to criminally investigate or prosecute any alcohol or drug abuse patient.[facility] HospitalIn the event this information is protected by the Federal Confidentiality of Alcohol and Drug Abuse Patient Records regulations: The Federal rules restrict any use of the information to criminally investigate or prosecute any alcohol or drug abuse patient.[facility] HospitalIn the event this information is protected by the Federal Confidentiality of Alcohol and Drug Abuse Patient Records regulations: The Federal rules restrict any use of the information to criminally investigate or prosecute any alcohol or drug abuse patient.[facility] HospitalIn the event this information is protected by the Federal Confidentiality of Alcohol and Drug Abuse Patient Records regulations: The Federal rules restrict any use of the information to criminally investigate or prosecute any alcohol or drug abuse patient.[facility] HospitalIn the event this information is protected by the Federal Confidentiality of Alcohol and Drug Abuse Patient Records regulations: The Federal rules restrict any use of the information to criminally investigate or prosecute any alcohol or drug abuse patient.[facility] HospitalIn the event this information is protected by the Federal Confidentiality of Alcohol and Drug Abuse Patient Records regulations: The Federal rules restrict any use of the information to criminally investigate or prosecute any alcohol or drug abuse patient.[facility] HospitalIn the event this information is protected by the Federal Confidentiality of Alcohol and Drug Abuse Patient Records regulations: The Federal rules restrict any use of the information to criminally investigate or prosecute any alcohol or drug abuse patient.[facility] HospitalIn the event this information is protected by the Federal Confidentiality of Alcohol and Drug Abuse Patient Records regulations: The Federal rules restrict any use of the information to criminally investigate or prosecute any alcohol or drug abuse patient.[facility] HospitalIn the event this information is protected by the Federal Confidentiality of Alcohol and Drug Abuse Patient Records regulations: The Federal rules restrict any use of the information to criminally investigate or prosecute any alcohol or drug abuse patient.[facility] HospitalIn the event this information is protected by the Federal Confidentiality of Alcohol and Drug Abuse Patient Records regulations: The Federal rules restrict any use of the information to criminally investigate or prosecute any alcohol or drug abuse patient.[facility] HospitalIn the event this information is protected by the Federal Confidentiality of Alcohol and Drug Abuse Patient Records regulations: The Federal rules restrict any use of the information to criminally investigate or prosecute any alcohol or drug abuse patient.[facility] HospitalIn the event this information is protected by the Federal Confidentiality of Alcohol and Drug Abuse Patient Records regulations: The Federal rules restrict any use of the information to criminally investigate or prosecute any alcohol or drug abuse patient.[facility] HospitalIn the event this information is protected by the Federal Confidentiality of Alcohol and Drug Abuse Patient Records regulations: The Federal rules restrict any use of the information to criminally investigate or prosecute any alcohol or drug abuse patient.[facility] HospitalIn the event this information is protected by the Federal Confidentiality of Alcohol and Drug Abuse Patient Records regulations: The Federal rules restrict any use of the information to criminally investigate or prosecute any alcohol or drug abuse patient.[facility] HospitalIn the event this information is protected by the Federal Confidentiality of Alcohol and Drug Abuse Patient Records regulations: The Federal rules restrict any use of the information to criminally investigate or prosecute any alcohol or drug abuse patient.[facility] HospitalIn the event this information is protected by the Federal Confidentiality of Alcohol and Drug Abuse Patient Records regulations: The Federal rules restrict any use of the information to criminally investigate or prosecute any alcohol or drug abuse patient.[facility] HospitalIn the event this information is protected by the Federal Confidentiality of Alcohol and Drug Abuse Patient Records regulations: The Federal rules restrict any use of the information to criminally investigate or prosecute any alcohol or drug abuse patient.[facility] HospitalIn the event this information is protected by the Federal Confidentiality of Alcohol and Drug Abuse Patient Records regulations: The Federal rules restrict any use of the information to criminally investigate or prosecute any alcohol or drug abuse patient.[facility] HospitalIn the event this information is protected by the Federal Confidentiality of Alcohol and Drug Abuse Patient Records regulations: The Federal rules restrict any use of the information to criminally investigate or prosecute any alcohol or drug abuse patient.[facility] HospitalIn the event this information is protected by the Federal Confidentiality of Alcohol and Drug Abuse Patient Records regulations: The Federal rules restrict any use of the information to criminally investigate or prosecute any alcohol or drug abuse patient.[facility] HospitalIn the event this information is protected by the Federal Confidentiality of Alcohol and Drug Abuse Patient Records regulations: The Federal rules restrict any use of the information to criminally investigate or prosecute any alcohol or drug abuse patient.[facility] HospitalIn the event this information is protected by the Federal Confidentiality of Alcohol and Drug Abuse Patient Records regulations: The Federal rules restrict any use of the information to criminally investigate or prosecute any alcohol or drug abuse patient.[facility] HospitalIn the event this information is protected by the Federal Confidentiality of Alcohol and Drug Abuse Patient Records regulations: The Federal rules restrict any use of the information to criminally investigate or prosecute any alcohol or drug abuse patient.[facility] HospitalIn the event this information is protected by the Federal Confidentiality of Alcohol and Drug Abuse Patient Records regulations: The Federal rules restrict any use of the information to criminally investigate or prosecute any alcohol or drug abuse patient.[facility] HospitalIn the event this information is protected by the Federal Confidentiality of Alcohol and Drug Abuse Patient Records regulations: The Federal rules restrict any use of the information to criminally investigate or prosecute any alcohol or drug abuse patient.[facility] HospitalIn the event this information is protected by the Federal Confidentiality of Alcohol and Drug Abuse Patient Records regulations: The Federal rules restrict any use of the information to criminally investigate or prosecute any alcohol or drug abuse patient.[facility] HospitalIn the event this information is protected by the Federal Confidentiality of Alcohol and Drug Abuse Patient Records regulations: The Federal rules restrict any use of the information to criminally investigate or prosecute any alcohol or drug abuse patient.[facility] HospitalIn the event this information is protected by the Federal Confidentiality of Alcohol and Drug Abuse Patient Records regulations: The Federal rules restrict any use of the information to criminally investigate or prosecute any alcohol or drug abuse patient.[facility] HospitalIn the event this information is protected by the Federal Confidentiality of Alcohol and Drug Abuse Patient Records regulations: The Federal rules restrict any use of the information to criminally investigate or prosecute any alcohol or drug abuse patient.[facility] HospitalIn the event this information is protected by the Federal Confidentiality of Alcohol and Drug Abuse Patient Records regulations: The Federal rules restrict any use of the information to criminally investigate or prosecute any alcohol or drug abuse patient.[facility] HospitalIn the event this information is protected by the Federal Confidentiality of Alcohol and Drug Abuse Patient Records regulations: The Federal rules restrict any use of the information to criminally investigate or prosecute any alcohol or drug abuse patient.[facility] HospitalIn the event this information is protected by the Federal Confidentiality of Alcohol and Drug Abuse Patient Records regulations: The Federal rules restrict any use of the information to criminally investigate or prosecute any alcohol or drug abuse patient.[facility] HospitalIn the event this information is protected by the Federal Confidentiality of Alcohol and Drug Abuse Patient Records regulations: The Federal rules restrict any use of the information to criminally investigate or prosecute any alcohol or drug abuse patient.[facility] HospitalIn the event this information is protected by the Federal Confidentiality of Alcohol and Drug Abuse Patient Records regulations: The Federal rules restrict any use of the information to criminally investigate or prosecute any alcohol or drug abuse patient.[facility] HospitalIn the event this information is protected by the Federal Confidentiality of Alcohol and Drug Abuse Patient Records regulations: The Federal rules restrict any use of the information to criminally investigate or prosecute any alcohol or drug abuse patient.[facility] HospitalIn the event this information is protected by the Federal Confidentiality of Alcohol and Drug Abuse Patient Records regulations: The Federal rules restrict any use of the information to criminally investigate or prosecute any alcohol or drug abuse patient.[facility] HospitalIn the event this information is protected by the Federal Confidentiality of Alcohol and Drug Abuse Patient Records regulations: The Federal rules restrict any use of the information to criminally investigate or prosecute any alcohol or drug abuse patient.[facility] HospitalIn the event this information is protected by the Federal Confidentiality of Alcohol and Drug Abuse Patient Records regulations: The Federal rules restrict any use of the information to criminally investigate or prosecute any alcohol or drug abuse patient.[facility] HospitalIn the event this information is protected by the Federal Confidentiality of Alcohol and Drug Abuse Patient Records regulations: The Federal rules restrict any use of the information to criminally investigate or prosecute any alcohol or drug abuse patient.[facility] HospitalIn the event this information is protected by the Federal Confidentiality of Alcohol and Drug Abuse Patient Records regulations: The Federal rules restrict any use of the information to criminally investigate or prosecute any alcohol or drug abuse patient.[facility] HospitalIn the event this information is protected by the Federal Confidentiality of Alcohol and Drug Abuse Patient Records regulations: The Federal rules restrict any use of the information to criminally investigate or prosecute any alcohol or drug abuse patient.[facility] HospitalIn the event this information is protected by the Federal Confidentiality of Alcohol and Drug Abuse Patient Records regulations: The Federal rules restrict any use of the information to criminally investigate or prosecute any alcohol or drug abuse patient.[facility] HospitalIn the event this information is protected by the Federal Confidentiality of Alcohol and Drug Abuse Patient Records regulations: The Federal rules restrict any use of the information to criminally investigate or prosecute any alcohol or drug abuse patient.[facility] HospitalIn the event this information is protected by the Federal Confidentiality of Alcohol and Drug Abuse Patient Records regulations: The Federal rules restrict any use of the information to criminally investigate or prosecute any alcohol or drug abuse patient.[facility] HospitalIn the event this information is protected by the Federal Confidentiality of Alcohol and Drug Abuse Patient Records regulations: The Federal rules restrict any use of the information to criminally investigate or prosecute any alcohol or drug abuse patient.[facility] HospitalIn the event this information is protected by the Federal Confidentiality of Alcohol and Drug Abuse Patient Records regulations: The Federal rules restrict any use of the information to criminally investigate or prosecute any alcohol or drug abuse patient.[facility] HospitalIn the event this information is protected by the Federal Confidentiality of Alcohol and Drug Abuse Patient Records regulations: The Federal rules restrict any use of the information to criminally investigate or prosecute any alcohol or drug abuse patient.[facility] HospitalIn the event this information is protected by the Federal Confidentiality of Alcohol and Drug Abuse Patient Records regulations: The Federal rules restrict any use of the information to criminally investigate or prosecute any alcohol or drug abuse patient.[facility] HospitalIn the event this information is protected by the Federal Confidentiality of Alcohol and Drug Abuse Patient Records regulations: The Federal rules restrict any use of the information to criminally investigate or prosecute any alcohol or drug abuse patient.[facility] HospitalIn the event this information is protected by the Federal Confidentiality of Alcohol and Drug Abuse Patient Records regulations: The Federal rules restrict any use of the information to criminally investigate or prosecute any alcohol or drug abuse patient.[facility] HospitalIn the event this information is protected by the Federal Confidentiality of Alcohol and Drug Abuse Patient Records regulations: The Federal rules restrict any use of the information to criminally investigate or prosecute any alcohol or drug abuse patient.[facility] HospitalIn the event this information is protected by the Federal Confidentiality of Alcohol and Drug Abuse Patient Records regulations: The Federal rules restrict any use of the information to criminally investigate or prosecute any alcohol or drug abuse patient.[facility] HospitalIn the event this information is protected by the Federal Confidentiality of Alcohol and Drug Abuse Patient Records regulations: The Federal rules restrict any use of the information to criminally investigate or prosecute any alcohol or drug abuse patient.[facility] HospitalIn the event this information is protected by the Federal Confidentiality of Alcohol and Drug Abuse Patient Records regulations: The Federal rules restrict any use of the information to criminally investigate or prosecute any alcohol or drug abuse patient.[facility] HospitalIn the event this information is protected by the Federal Confidentiality of Alcohol and Drug Abuse Patient Records regulations: The Federal rules restrict any use of the information to criminally investigate or prosecute any alcohol or drug abuse patient.[facility] HospitalIn the event this information is protected by the Federal Confidentiality of Alcohol and Drug Abuse Patient Records regulations: The Federal rules restrict any use of the information to criminally investigate or prosecute any alcohol or drug abuse patient.[facility] HospitalIn the event this information is protected by the Federal Confidentiality of Alcohol and Drug Abuse Patient Records regulations: The Federal rules restrict any use of the information to criminally investigate or prosecute any alcohol or drug abuse patient.[facility] HospitalIn the event this information is protected by the Federal Confidentiality of Alcohol and Drug Abuse Patient Records regulations: The Federal rules restrict any use of the information to criminally investigate or prosecute any alcohol or drug abuse patient.[facility] HospitalIn the event this information is protected by the Federal Confidentiality of Alcohol and Drug Abuse Patient Records regulations: The Federal rules restrict any use of the information to criminally investigate or prosecute any alcohol or drug abuse patient.[facility] HospitalIn the event this information is protected by the Federal Confidentiality of Alcohol and Drug Abuse Patient Records regulations: The Federal rules restrict any use of the information to criminally investigate or prosecute any alcohol or drug abuse patient.[facility] HospitalIn the event this information is protected by the Federal Confidentiality of Alcohol and Drug Abuse Patient Records regulations: The Federal rules restrict any use of the information to criminally investigate or prosecute any alcohol or drug abuse patient.[facility] HospitalIn the event this information is protected by the Federal Confidentiality of Alcohol and Drug Abuse Patient Records regulations: The Federal rules restrict any use of the information to criminally investigate or prosecute any alcohol or drug abuse patient.[facility] HospitalIn the event this information is protected by the Federal Confidentiality of Alcohol and Drug Abuse Patient Records regulations: The Federal rules restrict any use of the information to criminally investigate or prosecute any alcohol or drug abuse patient.[facility] HospitalIn the event this information is protected by the Federal Confidentiality of Alcohol and Drug Abuse Patient Records regulations: The Federal rules restrict any use of the information to criminally investigate or prosecute any alcohol or drug abuse patient.[facility] HospitalIn the event this information is protected by the Federal Confidentiality of Alcohol and Drug Abuse Patient Records regulations: The Federal rules restrict any use of the information to criminally investigate or prosecute any alcohol or drug abuse patient.[facility] HospitalIn the event this information is protected by the Federal Confidentiality of Alcohol and Drug Abuse Patient Records regulations: The Federal rules restrict any use of the information to criminally investigate or prosecute any alcohol or drug abuse patient.[facility] HospitalIn the event this information is protected by the Federal Confidentiality of Alcohol and Drug Abuse Patient Records regulations: The Federal rules restrict any use of the information to criminally investigate or prosecute any alcohol or drug abuse patient.[facility] HospitalIn the event this information is protected by the Federal Confidentiality of Alcohol and Drug Abuse Patient Records regulations: The Federal rules restrict any use of the information to criminally investigate or prosecute any alcohol or drug abuse patient.[facility] HospitalIn the event this information is protected by the Federal Confidentiality of Alcohol and Drug Abuse Patient Records regulations: The Federal rules restrict any use of the information to criminally investigate or prosecute any alcohol or drug abuse patient.[facility] HospitalIn the event this information is protected by the Federal Confidentiality of Alcohol and Drug Abuse Patient Records regulations: The Federal rules restrict any use of the information to criminally investigate or prosecute any alcohol or drug abuse patient.[facility] HospitalIn the event this information is protected by the Federal Confidentiality of Alcohol and Drug Abuse Patient Records regulations: The Federal rules restrict any use of the information to criminally investigate or prosecute any alcohol or drug abuse patient.[facility] HospitalIn the event this information is protected by the Federal Confidentiality of Alcohol and Drug Abuse Patient Records regulations: The Federal rules restrict any use of the information to criminally investigate or prosecute any alcohol or drug abuse patient.[facility] HospitalIn the event this information is protected by the Federal Confidentiality of Alcohol and Drug Abuse Patient Records regulations: The Federal rules restrict any use of the information to criminally investigate or prosecute any alcohol or drug abuse patient.[facility] HospitalIn the event this information is protected by the Federal Confidentiality of Alcohol and Drug Abuse Patient Records regulations: The Federal rules restrict any use of the information to criminally investigate or prosecute any alcohol or drug abuse patient.[facility] HospitalIn the event this information is protected by the Federal Confidentiality of Alcohol and Drug Abuse Patient Records regulations: The Federal rules restrict any use of the information to criminally investigate or prosecute any alcohol or drug abuse patient.[facility] HospitalIn the event this information is protected by the Federal Confidentiality of Alcohol and Drug Abuse Patient Records regulations: The Federal rules restrict any use of the information to criminally investigate or prosecute any alcohol or drug abuse patient.[facility] HospitalIn the event this information is protected by the Federal Confidentiality of Alcohol and Drug Abuse Patient Records regulations: The Federal rules restrict any use of the information to criminally investigate or prosecute any alcohol or drug abuse patient.[facility] HospitalIn the event this information is protected by the Federal Confidentiality of Alcohol and Drug Abuse Patient Records regulations: The Federal rules restrict any use of the information to criminally investigate or prosecute any alcohol or drug abuse patient.[facility] HospitalIn the event this information is protected by the Federal Confidentiality of Alcohol and Drug Abuse Patient Records regulations: The Federal rules restrict any use of the information to criminally investigate or prosecute any alcohol or drug abuse patient.[facility] the event this information is protected by the Federal Confidentiality of Alcohol and Drug Abuse Patient Records regulations: The Federal rules restrict any use of the information to criminally investigate or prosecute any alcohol or drug abuse patient.[facility] Reason for Visit (unrecogniz ed section and content) Reason Comments cellulitis OD Specialty Diagnoses / Procedures Referred By Contac t Referred To Contact Emergency Medicine Diagnoses Orbital cellulitis on right [facility] [place] [place] [address] Phone: [phone] [facility] [place] [address] Phone: [phone] Referral ID Status Reason Start Date Expiration Date Visits Re quested Visits Authorized [id number] 3 Reason Comments Refill Request Reason [...] ABDOMINAL REAL TIME W/IMAGE LIMITED Soila Easton APRN.COMPANY MARKER [address] [place] [address] Us Imaging Referral ID Status Reason Start Date Expiration Date V isits Requested Visits Authorized [id number] Closed Auto-Generate d Referral 04/17/2022 05/17/2023 1 1 Reason Onset Date Comments Refill Request 05/22/2022 Reason Comments Alcohol induced chronic pancreatitis Alc oholic hepatitis w/o ascites Specialty Diagnoses / Procedures Referred By Contac t Referred To Contact Gastroenterology Diagnoses Alcohol-induced chronic pancreatitis (HCC) Alcoholic hepatitis without ascites Procedures CONSULT TO GASTROENTEROLOGY OFFICE/OUTPATIENT NEW HIGH MDM 60-74 MINUTES Soila Easton APRN.COMPANY MARKER [address] [place] [address] Referral ID Status Reason Start Date Expiration Date V isits Requested Visits Authorized [id number] Closed PCP Requested Referral 04/17/2022 04/17/2023 1 1 Reason Onset Date Comments Refill Request 06/13/2022 Reason Onset Date Comments Recheck 3 month follow u p Immunizations 07/18/2022 Flu vaccination Reason Comments Recheck [facility] ER follow up, SO B, [...] MDM 60-74 MINUTES Misbah Elkins MD [address] [place] [address] Referral ID Status Reason Start Date Expiration Date V isits Requested Visits Authorized [id number] Closed PCP Requested Referral 11/25/2022 11/25/2023 1 [...] CT ABD & PELVIS W/CONTRAST Soila Easton APRN.COMPANY MARKER [address] [place] [address] [place] [address] Referral ID Status Reason Start Date Expiration Date V isits Requested Visits Authorized [id number] Closed Auto-Generate d Referral 08/15/2024 10/14/2024 1 1 Specialty Diagnoses / Procedures Referred By Contac t Referred To Contact CT IMAGING Diagnoses Alcoholic hepatitis without ascites Acute pancreatitis, unspecified complication status, unspecified pancreatitis type Upper abdominal pain Nausea Elevated lipase Generalized abdominal tenderness without rebound tenderness Procedures CT ABD/PEL W IVCON CT ABD & PELVIS W/CONTRAST Soila Easton APRN.COMPANY MARKER [address] [place] [address] [address] [facility] [place] [address] Reason Onset Date Comments Refill Request 10/28/2024 Reason Comments New Patient Chronic recurrent pa ncreatitis (HCC) [K86.1]; 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] Specialty Diagnoses / Procedures Referred By Contac t Referred To Contact Gastroenterology Diagnoses Chronic recurrent pancreatitis (HCC) Alcohol-induced chronic pancreatitis (HCC) Procedures CONSULT TO GASTROENTEROLOGY OFFICE/OUTPATIENT NEW HIGH MDM 60 MINUTES Soila Easton APRN.COMPANY MARKER [address] [place] [address] Referral ID Status Reason Start Date Expiration Date V isits Requested Visits Authorized [id number] Closed PCP Requested Referral 09/02/2024 09/02/2025 1 [...] Comments 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 Orders Reason Comments Patient Update Symptoms after ERCP Reason Comments Critical Care Transport Reason Onset Date Comments Refill Request 03/21/2025 Reason Comments Transition Of Care RC f/u discharge LVM Reason Comments Transition Of Care Reason Comments Transition Of Care Left V/m Reason Comments Appointment Reason Comments Hospital F/U Reason Comments Hospital F/U [facility] 04/15/25-04/19/25 Reason Comments Pain medication [...] 2024 End: November 24, 2024 Ani Eduardo SERVICE COUNTER CASHIER, SERVICE COUNTER CASHIER-C Attending Provider Active Start: November 24, 2024 End: November 24, 2024 Ani Eduardo SERVICE COUNTER CASHIER, SERVICE COUNTER CASHIER-C Referring Provider Active Start: November 24, 2024 [...] Start : December 05, 2024 Dr. Aleta Augayo DO Other Provider Active Start : December [...] Start : December 05, 2024 Dr. Aleta Olivier , DO Other Provider Active Start : December 05, 2024 Dr. Yrn Kahn , DO Attending Provider Active Start: December 05, [...] Provider Active Sta rt: December 07, 2024 Geography Head Relationship Specialty Start Date End Date Misbah Elkins MD [address] [place] [address] PCP - General Internal Medicine 03/26/21 Geography Head Relationship Specialty Start Date End Date Misbah Elkins MD [address] [place] [address] PCP - General Internal Medicine 03/26/21 Geography Head Relationship Specialty Start Date End Date Misbah Elkins MD [address] [place] [address] PCP - General Internal Medicine 03/26/21 Geography Head Relationship Specialty Start Date End Date Misbah Elkins MD [address] [place] [address] PCP - General Internal Medicine 03/26/21 Geography Head Relationship Specialty Start Date End Date Misbah Elkins MD [address] [facility] [place] [address] PCP - General Internal Medicine 03/26/21 Geography Head Relationship Specialty Start Date End Date Misbah Elkins MD [address] [facility] [place] [address] PCP - General Internal Medicine 03/26/21 Geography Head Relationship Specialty Start Date End Date Misbah Elkins MD [address] [facility] [place] [address] PCP - General Internal Medicine 03/26/21 Geography Head Relationship Specialty Start Date End Date Misbah Elkins MD [address] [facility] [place] [address] PCP - General Internal Medicine 03/26/21 Geography Head Relationship Specialty Start Date End Date Misbah Elkins MD [address] [facility] [place] [address] PCP - General Internal Medicine 03/26/21 Geography Head Relationship Specialty Start Date End Date Misbah Elkins MD [address] [place] [address] PCP - General Internal Medicine 03/26/21 Geography Head Relationship Specialty Start Date End Date Misbah Elkins MD [address] [place] [address] PCP - General Internal Medicine 03/26/21 Geography Head Relationship Specialty Start Date End Date Misbah Elkins MD [address] [facility] [place] [address] PCP - General Internal Medicine 03/26/21 Geography Head Relationship Specialty Start Date End Date Misbah Elkins MD [address] [facility] [place] [address] PCP - General Internal Medicine 03/26/21 Team Status: Active Member Role Status Dates Dr. Bernard Galan III, MD Family Provider Active SOILA OLDER , SERVICE COUNTER CASHIER-C Primary Care Provider Active Team Status: Inactive Member Role Status Dates SOILA OLDER , SERVICE COUNTER CASHIER-C Primary Care Provider Active Ani Eduardo SERVICE COUNTER CASHIER, SERVICE COUNTER CASHIER-C Attending Provider, Referrin g Provider Active Team Status: Inactive Member Role Status Dates SOILA OLDER , SERVICE COUNTER CASHIER-C Primary Care Provider Active Dr. Levar Handy DO Attending Provider, Emergency Provider Active Team Status: Inactive Member Role Status Dates SOILA OLDER , SERVICE COUNTER CASHIER-C Primary Care Provider Active Dr. Tasneem Dykes MD Emergency Provider Active Geography Head Relationship Specialty Start Date End Date Jaime Aggarwal MD [address] [place] [address] Resident Ophthalmology 11/01/22 Jeffery Jin MD [address] [place] [address] Resident Ophthalmology 11/01/22 Team Status: Active Member Role Status Dates SOILA OLDER , SERVICE COUNTER CASHIER-C Primary Care Provider Active Dr. Edmund Tang MD Emergency Provider Active Dr. Ciarra Ross MD Admit Provider, Attending Provider , Other Provider Active Team Status: Active Member Role Status Dates SOILA OLDER , SERVICE COUNTER CASHIER-C Primary Care Provider Active Dr. Edmund Tang MD Emergency Provider Active Dr. Ciarra Ross MD Admit Provider, Other Provider Act lopez Dr. Lisa Ochoa MD Attending Provider, Other Provid er Active Team Status: Active Member Role Status Dates SOILA OLDER , SERVICE COUNTER CASHIER-C Primary Care Provider Active Dr. Edmund Tang MD Emergency Provider Active Dr. Ciarra Ross MD Admit Provider, Other Provider Act lopez Dr. Freddie Perdue MD Other Provider Active Dr. Gonzalo Sebastian DO Attending Provider, Other Provide r Active Dr. Olivier Coffman MD Other Provider Active Dr. Dieter Harrison MD Other Provider Active Ani Eduardo SERVICE COUNTER CASHIER, SERVICE COUNTER CASHIER-C Other Provider Active Dr. Anastacia Bonilla MD Other Provider Active Dr. Lisa Ochoa MD Other Provider Active Team Status: Active Member Role Status Lily SHETTYY RUSTAM , SERVICE COUNTER CASHIER-C Primary Care Provider Active Dr. Edmund Tang MD Emergency Provider Active Dr. Ciarra Ross MD Admit Provider, Other Provider Act lopez Dr. Freddie Perdue MD Other Provider Active Dr. Gonzalo Sebasitan DO Other Provider Active Dr. Olivier Coffman MD Other Provider Active Dr. Dieter Harrison MD Other Provider Active Ani Eduardo SERVICE COUNTER CASHIER, SERVICE COUNTER CASHIER-C Other Provider Active Dr. Anastacai Bonilla MD Attending Provider, Other Prov ider Active Dr. Lisa Ochoa MD Other Provider Active Team Status: Active Member Role Status Lily SOILA EASTON , SERVICE COUNTER CASHIER-C Primary Care Provider Active Dr. Edmund Tang MD Emergency Provider Active Dr. Ciarra Ross MD Admit Provider, Other Provider Act lopez Dr. Freddie Perdue MD Other Provider Active Dr. Gonzalo Sebastian DO Other Provider Active Dr. Olivier Coffman MD Other Provider Active Dr. Dieter Harrison MD Other Provider Active Ani Eduardo SERVICE COUNTER CASHIER, SERVICE COUNTER CASHIER-C Other Provider Active Dr. Lisa Ochoa MD Other Provider Active Dr. Courtney Iverson MD Other Provider Active Dr. Anastacia Bonilla MD Attending Provider, Other Prov ider Active Team Status: Active Member Role Status Lily SHETTYY RUSTAM , SERVICE COUNTER CASHIER-C Primary Care Provider Active Dr. Edmund Tang MD Emergency Provider Active Dr. Ciarra Ross MD Admit Provider, Other Provider Act lopez Dr. Freddie Perdue MD Other Provider Active Dr. Gonzalo Sebastian DO Attending Provider, Other Provide r Active Dr. Olivier Coffman MD Other Provider Active Dr. Dieter Harrison MD Other Provider Active Ani Eduardo SERVICE COUNTER CASHIER, SERVICE COUNTER CASHIER-C Other Provider Active Dr. Lisa Ochoa MD Other Provider Active Dr. Courtney Iverson MD Other Provider Active Dr. Anastacia Bonilla MD Other Provider Active Team Status: Active Member Role Status Lily RODRIGUEZ OLDER , SERVICE COUNTER CASHIER-C Primary Care Provider Active Dr. Donn Galan MD Attending Provider Active Team Status: Active Member Role Status Lily SHETTYY OLDER , SERVICE COUNTER CASHIER-C Primary Care Provider Active Dr. Nacho Vega MD Attending Provider Active Dr. Mahamed Fatima DO Referring Provider Active Team Status: Active Member Role Status Dates SOILA OLDER , SERVICE COUNTER CASHIER-C Primary Care Provider Active Dr. Edmund Tang [...] Harrison MD Other Provider Active Ani Eduardo SERVICE COUNTER CASHIER, SERVICE COUNTER CASHIER-C Other Provider Active Dr. Courtney Iverson MD Other Provider Active Team Status: Inactive Member Role Status Dates SOILA OLDER , SERVICE COUNTER CASHIER-C Primary Care Provider Active Dr. Tasneem Dykes MD Attending Provider, Emergency Provider Active Team Status: Inactive Member Role Status Dates SOILA OLDER , SERVICE COUNTER CASHIER-C Primary Care Provider Active Dr. Edmund Tang [...] Harrison MD Other Provider Active Ani Eduardo SERVICE COUNTER CASHIER, SERVICE COUNTER CASHIER-C Other Provider Active Dr. Courtney Iverson MD Other Provider Active Geography Head Relationship Specialty Start Date End Date Misbah Elkins MD [address] [place] [address] PCP - General Internal Medicine 03/26/21 Geography Head Relationship Specialty Start Date End Date Misbah Elkins MD [address] [place] [address] PCP - General Internal Medicine 03/26/21 Geography Head Relationship Specialty Start Date End Date Misbah Elkins MD [address] [place] [address] PCP - General Internal Medicine 03/26/21 Geography Head Relationship Specialty Start Date End Date Misbah Elkins MD [address] [place] [address] PCP - General Internal Medicine 03/26/21 Geography Head Relationship Specialty Start Date End Date Misbah Elkins MD [address] [place] [address] PCP - General Internal Medicine 03/26/21 Geography Head Relationship Specialty Start Date End Date Misbah Elkins MD [address] [place] [address] PCP - General Internal Medicine 03/26/21 Geography Head Relationship Specialty Start Date End Date Misbah Elkins MD [address] [place] [address] PCP - General Internal Medicine 03/26/21 Team Status: Active Member Role Status Dates Ani Eduardo SERVICE COUNTER CASHIER, SERVICE COUNTER CASHIER-C Attending Provider, Referrin g Provider Active SOILA EASTON , SERVICE COUNTER CASHIER-C Primary Care Provider Active Team Status: Inactive Member Role Status Dates SOILA EASTON , SERVICE COUNTER CASHIER-C Primary Care Provider Active Dr. Levar Handy , DO Emergency Provider Active Geography Head Relationship Specialty Start Date End Date Misbah Elkins MD [address] [place] [address] PCP - General Internal Medicine 03/26/21 Geography Head Relationship Specialty Start Date End Date Misbah Elkins MD [address] [place] [address] PCP - General Internal Medicine 03/26/21 Team Status: Inactive Member Role Status Dates SOILA EASTON , SERVICE COUNTER CASHIER-C Primary Care Provider, Referring Prov ider Active Ani Eduardo SERVICE COUNTER CASHIER, SERVICE COUNTER CASHIER-C Attending Provider Active Team Status: Inactive Member Role Status Dates Ani Eduardo SERVICE COUNTER CASHIER, SERVICE COUNTER CASHIER-C Attending Provider, Referrin g Provider Active SOILA EASTON , SERVICE COUNTER CASHIER-C Primary Care Provider Active Geography Head Relationship Specialty Start Date End Date Misbah Elkins MD [address] [place] [address] PCP - General Internal Medicine 03/26/21 Geography Head Relationship Specialty Start Date End Date Misbah Elkins MD [address] [place] [address] PCP - General Internal Medicine 03/26/21 Team Status: Active Member Role Status Dates Dr. Bernard Galan III, MD Family Provider Active Anat Brock SERVICE COUNTER CASHIER, SERVICE COUNTER CASHIER-C Primary Care Provider Active Team Status: Active Member Role Status Dates Dr. Víctor Huerta DO Emergency Provider Active Anat Gutirérez SERVICE COUNTER CASHIER, SERVICE COUNTER CASHIER-C Primary Care Provider Active Dr. Carin Meraz MD Admit Provider, Attending Prov ider Active Team Status: Active Member Role Status Dates Dr. Víctor Huerta DO Emergency Provider Active Anat Gutiérrez SERVICE COUNTER CASHIER, SERVICE COUNTER CASHIER-C Primary Care Provider Active Dr. Carin Meraz MD Admit Provider, Other Provider Active Dr. Anastacia Bonilla MD Attending Provider, Other Prov ider Active Team Status: Active Member Role Status Dates Dr. Víctor Huerta DO Emergency Provider Active Anat Gutiérrez SERVICE COUNTER CASHIER, SERVICE COUNTER CASHIER-C Primary Care Provider Active Dr. Carin Meraz MD Admit Provider, Other Provider Active Dr. Bert Greenwood MD Attending Provider, Other Provi mary Active Dr. Anastacia Bonilla MD Other Provider Active Team Status: Inactive Member Role Status Dates Dr. Víctor Huerta DO Emergency Provider Active Anat Gutiérrez SERVICE COUNTER CASHIER, SERVICE COUNTER CASHIER-C Primary Care Provider Active Dr. Carin Meraz MD Admit Provider, Other Provider Active Dr. Bert Greenwood MD Attending Provider Active Dr. Anastacia Bonilla MD Other Provider Active Geography Head Relationship Specialty Start Date End Date Misbah Elkins MD [address] [place] [address] PCP - General Internal Medicine 03/26/21 Geography Head Relationship Specialty Start Date End Date Misbah Elkins MD [address] [place] [address] PCP - General Internal Medicine 03/26/21 Geography Head Relationship Specialty Start Date End Date Misbah Elkins MD [address] [place] [address] PCP - General Internal Medicine 03/26/21 Team Status: Inactive Member Role Status Dates Anat Gutiérrez SERVICE COUNTER CASHIER, SERVICE COUNTER CASHIER-C Primary Care Provider Active Dr. Erik Gomez MD Emergency Provider Active Geography Head Relationship Specialty Start Date End Date Misbah Elkins MD [address] [place] [address] PCP - General Internal Medicine 03/26/21 Geography Head Relationship Specialty Start Date End Date Misbah Elkins MD [address] [place] [address] PCP - General Internal Medicine 03/26/21 Geography Head Relationship Specialty Start Date End Date Misbah Elkins MD [address] [place] [address] PCP - General Internal Medicine 03/26/21 Geography Head Relationship Specialty Start Date End Date Misbah Elkins MD [address] [place] [address] PCP - General Internal Medicine 03/26/21 Geography Head Relationship Specialty Start Date End Date Misbah Elkins MD [address] [place] [address] PCP - General Internal Medicine 03/26/21 Geography Head Relationship Specialty Start Date End Date Misbah Elkins MD [address] [place] [address] PCP - General Internal Medicine 03/26/21 Geography Head Relationship Specialty Start Date End Date Misbah Elkins MD [address] [place] [address] PCP - General Internal Medicine 03/26/21 Geography Head Relationship Specialty Start Date End Date Misbah Elkins MD [address] [place] [address] PCP - General Internal Medicine 03/26/21 Geography Head Relationship Specialty Start Date End Date Misbah Elkins MD [address] [place] [address] PCP - General Internal Medicine 03/26/21 Geography Head Relationship Specialty Start Date End Date Misbah Elkins MD [address] [place] [address] PCP - General Internal Medicine 03/26/21 Geography Head Relationship Specialty Start Date End Date Misbah Elkins MD [address] [place] [address] PCP - General Internal Medicine 03/26/21 Geography Head Relationship Specialty Start Date End Date Misbah Elkins MD [address] [place] [address] PCP - General Internal Medicine 03/26/21 Geography Head Relationship Specialty Start Date End Date Misbah Elkins MD [address] [place] [address] PCP - General Internal Medicine 03/26/21 Geography Head Relationship Specialty Start Date End Date Misbah Elkins MD [address] [place] [address] PCP - General Internal Medicine 03/26/21 Geography Head Relationship Specialty Start Date End Date Misbah Elkins MD [address] [place] [address] PCP - General Internal Medicine 03/26/21 Geography Head Relationship Specialty Start Date End Date Misbah Elkins MD [address] [place] [address] PCP - General Internal Medicine 03/26/21 Geography Head Relationship Specialty Start Date End Date Misbah Elkins MD [address] [place] [address] PCP - General Internal Medicine 03/26/21 Geography Head Relationship Specialty Start Date End Date Misbah Elkins MD [address] [place] [address] PCP - General Internal Medicine 03/26/21 Candie Talley PA-C [address] [place] [address] Dry Mixer Family Medicine 09/04/24 Soila Easton APRN.CNP [address] [facility] [place] [address] Dry Mixer Internal Medicine 09/04/24 Nara Larson PA-C [address] [place] [address] Dry Mixer Family Medicine 09/04/24 Geography Head Relationship Specialty Start Date End Date Misbah Elkins MD [address] [place] [address] PCP - General Internal Medicine 03/26/21 Candie Talley PA-C [address] [place] [address] Dry Mixer Family Medicine 09/04/24 Soila Easton APRN.COMPANY MARKER [address] [place] [address] Dry Mixer Internal Medicine 09/04/24 Nara Larson PA-C [address] [place] [address] Dry [facility]er Family Medicine 09/04/24 Geography Head Relationship Specialty Start Date End Date Misbah Elkins MD [address] [place] [address] PCP - General Internal Medicine 03/26/21 Candie Talley PA-C [address] [place] [address] Dry Mixer Family Medicine 09/04/24 Soila Easton APRN.COMPANY MARKER [address] [place] [address] Dry Mixer Internal Medicine 09/04/24 Nara Larson PA-C [address] [place] [address] Dry [facility]er Family Medicine 09/04/24 Geography Head Relationship Specialty Start Date End Date Misbah Elkins MD [address] [place] [address] PCP - General Internal Medicine 03/26/21 Candie Talley PA-C [address] [place] [address] [facility] Soila Easton APRN.COMPANY MARKER [address] [place] [address] Dry [employer]er Internal Medicine 09/04/24 Nara Larson PA-C [address] [place] [address] [facility]/04/24 Geography Head Relationship Specialty Start Date End Date Misbah Elkins MD [address] [place] [address] PCP - General Internal Medicine 03/26/21 Candie Talley PA-C [address] [place] [address] [facility] 09/04/24 Soila Easton APRN.COMPANY MARKER [address] [place] [address] Dry [employer]er Internal Medicine 09/04/24 Nara Larson PA-C [address] [place] [address] [facility] 09/04/24 Geography Head Relationship Specialty Start Date End Date Misbah Elkins MD [address] [place] [address] PCP - General Internal Medicine 03/26/21 Candie Talley PA-C [address] [place] [address] Dry [facility]er Family Medicine 09/04/24 Soila Easton APRN.COMPANY MARKER [address] [place] [address] Dry Mixer Internal Medicine 09/04/24 Nara Larson PA-C [address] [place] [address] Dry Mixer Family Medicine 09/04/24 Geography Head Relationship Specialty Start Date End Date Misbah Elkins MD [address] [place] [address] PCP - General Internal Medicine 03/26/21 Candie Talley PA-C [address] [place] [address] Dry Mixer Family Medicine 09/04/24 Soila Easton APRN.COMPANY MARKER [address] [place] [address] [employer]er Internal Medicine 09/04/24 Nara Larson PA-C [address] [place] [address] [employer] [facility] Family Medicine 09/04/24 Geography Head Relationship Specialty Start Date End Date Misbah Elkins MD [address] [place] [address] PCP - General Internal Medicine 03/26/21 Candie Talley PA-C [address] [place] [address] Dry [facility]er Family Medicine 09/04/24 Soila Easton APRN.COMPANY MARKER [address] [place] [address] Dry Mixer Internal Medicine 09/04/24 Nara Larson PA-C [address] [place] [address] Dry Mixer Family Medicine 09/04/24 Geography Head Relationship Specialty Start Date End Date Misbah Elkins MD [address] [place] [address] PCP - General Internal Medicine 03/26/21 Candie Talley PA-C [address] [place] [address] Dry Mixer Family Medicine 09/04/24 Soila Easton APRN.COMPANY MARKER [address] [place] [address] Dry Mixer Internal Medicine 09/04/24 Nara Larson PA-C [address] [place] [address] [facility] 09/04/24 Geography Head Relationship Specialty Start Date End Date Misbah Elkins MD [address] [place] [address] PCP - General Internal Medicine 03/26/21 Candie Talley PA-C [address] [place] [address] Dry Mixer Family Medicine 09/04/24 Soila Easton APRN.COMPANY MARKER [address] [place] [address] [employer]er Internal Medicine 09/04/24 Nara Larson PA-C [address] [place] [address] Dry [facility]er Family Medicine 09/04/24 Geography Head Relationship Specialty Start Date End Date Misbah Elkins MD [address] [place] [address] PCP - General Internal Medicine 03/26/21 Soila Easton APRN.COMPANY MARKER [address] [place] [address] Dry Mixer Internal Medicine 09/04/24 Geography Head Relationship Specialty Start Date End Date Misbah Elkins MD [address] [place] [address] PCP - General Internal Medicine 03/26/21 Soila Easton APRN.COMPANY MARKER [address] [place] [address] Dry Mixer Internal Medicine 09/04/24 Geography Head Relationship Specialty Start Date End Date Misbah Elkins MD [address] [place] [address] PCP - General Internal Medicine 03/26/21 Soila Easton APRN.COMPANY MARKER [address] [place] [address] Dry Mixer Internal Medicine 09/04/24 Geography Head Relationship Specialty Start Date End Date Misbah Elkins MD [address] [place] [address] PCP - General Internal Medicine 03/26/21 Older, UNA Rodriguez.COMPANY MARKER [address] [place], [place] [address] [facility] Internal Medicine 09/04/24 Team Status: Active Member Role Status Dates Dr. Misbah Elkins MD Primary Care Provider Active Start: November 24, 2024 Ani Eduardo SERVICE COUNTER CASHIER, SERVICE COUNTER CASHIER-C Attending Provider Active Start: November 24, 2024 Ani Eduardo SERVICE COUNTER CASHIER, SERVICE COUNTER CASHIER-C Referring Provider Active Start: November 24, 2024 Team Status: Active Member Role Status Dates Dr. Misbah Elkins MD Primary Care Provider Active Start: December 04, 2024 Dr. Franco Inman MD Emergency Provider Active S tart: December 04, 2024 Dr. Aleta Aguayo DO Admit Provider Active Start : December 04, 2024 Dr. Aleta Aguayo DO Attending Provider Active S tart: December 04, 2024 Geography Head Relationship Specialty Start Date End Date Misbah Elkins MD [address] [place] [address] PCP - General Internal Medicine 03/26/21 Soila Easton APRN.COMPANY MARKER [address] [place] [address] [facility] Internal Medicine 09/04/24 Team Status: Inactive [...] December 08, 2024 Dr. Aleta Aguayo , DO Admit Provider Active Start : December 08, 2024 Dr. Aleta Aguayo , DO Other Provider Active Start : December 08, 2024 Dr. Yrn Kahn , DO Other [...] S tart: December 08, 2024 Dr. Elton Abrahma MD Other Provider Active Start: December 08, [...] Active Start : December 09, 2024 Dr. Marai Antonia Salinas MD Other Provider Active Star [...] t: December 10, 2024 Dr. Gonzalo Sebastian DO Other Provider [...] Star t: December 11, 2024 Dr. Hever Dhesi , DO Other Provider Active St art: [...] tart: December 07, 2024 Dr. Gonzalo Sebastian , [...] Provider Active Start: December 07, 2024 Dr. eNnita Armando MD Other Provider Active St art: [...] t: December 08, 2024 Dr. Hever Marrufo , Other Provider Active St art: December 08, [...] 2024 End: December 23, 2024 Ani Eduardo SERVICE COUNTER CASHIER, SERVICE COUNTER CASHIER-C Attending Provider Active Start: December 23, 2024 End: December 23, 2024 Team Status: Inactive Member Role Status Dates Dr. Misbah Elkins MD Primary Care Provider Active Start: December 24, 2024 End: December 24, 2024 Dr. Mo Velasco DO Emergency Provider Active Start : December 24, 2024 End: December 24, 2024 Geography Head Relationship Specialty Start Date End Date Misbah Elkins MD [address] [place] [address] PCP - General Internal Medicine 03/26/21 Soila Easton APRN.COMPANY MARKER [address] [place] [address] [employer] Internal Medicine 09/04/24 Team Status: Inactive Member [...] January 01, 2025 End: January 01, 2025 Geography Head Relationship Specialty Start Date End Date Misbah Elkins MD [address] [place] [address] PCP - General Internal Medicine 03/26/21 Soila Easton APRN.COMPANY MARKER [address] [facility] [place], [place] [id number] [phone] [employer] Internal Medicine 09/04/24 Geography Head Relationship Specialty Start Date End Date Misbah Elkins MD [address] [facility] [place] [address] PCP - General Internal Medicine 03/26/21 Soila Easton APRN.COMPANY MARKER [address] [facility] [place] [address] [employer] Internal Medicine 09/04/24 Geography Head Relationship Specialty Start Date End Date Misbah Elkins MD [address] [place] [address] PCP - General Internal Medicine 03/26/21 Soila Easton APRN.COMPANY MARKER [address] [place] [address] [employer] Internal Medicine 09/04/24 Geography Head Relationship Specialty Start Date End Date Misbah Elkins MD [address] [place] [address] PCP - General Internal Medicine 03/26/21 Soila Easton APRN.COMPANY MARKER [address] [place] [address] Dry [employer]er Internal Medicine 09/04/24 Team Status: Inactive Member [...] Inactive Member Role Status Dates Anat Gutiérrez SERVICE COUNTER CASHIER, SERVICE COUNTER CASHIER-C Referring Provider Active Start: February 08, 2025 End: February 08, 2025 Ani Eduardo SERVICE COUNTER CASHIER, SERVICE COUNTER CASHIER-C Attending Provider Active Start: February 08, 2025 End: February 08, 2025 Dr. Misbah Elkins MD Primary Care Provider Active Start: February 08, 2025 End: February 08, 2025 Geography Head Relationship Specialty Start Date End Date Misbah Elkins MD [address] [place], [place] [address] PCP - General Internal Medicine 03/26/21 Soila Easton APRN.COMPANY MARKER [address] [place], [place] [address] [employer]er Internal Medicine 09/04/24 Geography Head Relationship Specialty Start Date End Date Misbah Elkins MD [address] [place], [place] [address] PCP - General Internal Medicine 03/26/21 Rustam, Soila, UNA.COMPANY MARKER [address] [place], [place] [address] [facility] Internal Medicine 09/04/24 Team Status: Inactive Member Role Status Dates Dr. Misbah Elkins MD Primary Care Provider Active Start: February 26, 2025 End: February 26, 2025 Dr. Franco Inman MD Emergency Provider Active S tart: February 26, 2025 End: February 26, 2025 Geography Head Relationship Specialty Start Date End Date Misbah Elkins MD [address] [facility], [place] [address] PCP - General Internal Medicine 03/26/21 Older, Soila, SALES MARKETING.COMPANY MARKER [address] [facility], [place] [id number] [facility] Internal [facility] 09/04/24 Team Status: Inactive Member Role Status [...] 2025 End: March 15, 2025 Dr. Nenita Armnado MD Other Provider Active St art: March [...] Provider Active Sta rt: March 15, 2025 Geography Head Relationship Specialty Start Date End Date Misbah Elkins MD [address] [place] [address] PCP - General Internal Medicine 03/26/21 Soila Easton APRN.COMPANY MARKER [address] [facility] [place] [address] Dry Mixer Internal Medicine 09/04/24 Geography Head Relationship Specialty Start Date End Date Misbah Elkins MD [address] [place] [address] PCP - General Internal Medicine 03/26/21 Soila Easton APRN.COMPANY MARKER [address] [facility] [place] [address] Dry Mixer Internal Medicine 09/04/24 Elisa Branch MD Dry Mixer 03/23/25 04/06/25 Geography Head Relationship Specialty Start Date End Date Misbah Elkins MD [address] [place] [address] PCP - General Internal Medicine 03/26/21 Soila Easton APRN.COMPANY MARKER [address] [facility] [place] [address] Dry Mixer Internal Medicine 09/04/24 Elisa Branch MD Dry Mixer 03/23/25 04/06/25 Geography Head Relationship Specialty Start Date End Date Misbah Elkins MD [address] [place] [address] PCP - General Internal Medicine 03/26/21 Soila Easton APRN.COMPANY MARKER [address] [place] [address] Dry Mixer Internal Medicine 09/04/24 Elisa Branch MD Dry Mixer 03/23/25 04/06/25 Geography Head Relationship Specialty Start Date End Date Misbah Elkins MD [address] [facility] [place] [address] PCP - General Internal Medicine 03/26/21 Soila Easton APRN.COMPANY MARKER [address] [place] [address] Dry Mixer Internal Medicine 09/04/24 Elisa Branch MD Dry Mixer 03/23/25 04/06/25 Geography Head Relationship Specialty Start Date End Date Misbah Elkins MD [address] [facility] [place] [address] PCP - General Internal Medicine 03/26/21 Soila Easton APRN.COMPANY MARKER [address] [place] [address] Dry Mixer Internal Medicine 09/04/24 Elisa Branch MD Dry Mixer 03/23/25 04/06/25 Geography Head Relationship Specialty Start Date End Date Misbah Elkins MD [address] [place] [address] PCP - General Internal Medicine 03/26/21 Soila Easton APRN.COMPANY MARKER [address] [place] [address] [facility] Internal Medicine 09/04/24 Team Status: Active [...] December 11, 2024 Dr. Hever Marrufo , Other Provider Active St art: December 11, [...] 2024 End: December 23, 2024 Ani Eduardo SERVICE COUNTER CASHIER, SERVICE COUNTER CASHIER-C Attending Provider Active Start: December 23, 2024 [...] Status: Inactive Member Role/Relationship Status Dates Dr. Msibah Elkins MD Primary Care Provider Active Start: January 27, 2025 End: January 27, 2025 Dr. Franco Inman MD Attending Provider Active S tart: January 27, 2025 End: January 27, 2025 Dr. Franco Inman MD Emergency Provider Active S tart: January 27, 2025 End: January 27, 2025 Team Status: Inactive Member Role/Relationship Status Dates Anat Gutiérrez SERVICE COUNTER CASHIER, SERVICE COUNTER CASHIER-C Referring Provider Active Start: February 08, 2025 End: February 08, 2025 Ani Eduardo SERVICE COUNTER CASHIER, SERVICE COUNTER CASHIER-C Attending Provider Active Start: February 08, 2025 [...] Active Start: March 15, 2025 Dr. Macario Alxe DO Emergency Provider Activ e Start: March [...] 2025 End: April 10, 2025 Ani Eduardo SERVICE COUNTER CASHIER, SERVICE COUNTER CASHIER-C Attending Provider Active Start: April 10, 2025 End: April 10, 2025 Geography Head Relationship Specialty Start Date End Date Misbah Elkins MD [address] [place] [address] PCP - General Internal Medicine 03/26/21 Soila Easton APRN.COMPANY MARKER [address] [place] [address] Dry Mixer Internal Medicine 09/04/24 Geography Head Relationship Specialty Start Date End Date Misbah Elkins MD [address] [facility] [place] [address] PCP - General Internal Medicine 03/26/21 Older, UNA Rodriguez.COMPANY MARKER [address] [place] [address] Dry Mixer Internal Medicine 09/04/24 Team Status: Inactive Member Role/Relationship Status Dates Dr. Misbah Elkins MD Primary Care Provider Active Start: December 23, 2024 End: December 23, 2024 Dr. Misbah Elkins MD Referring Provider Active Start: December 23, 2024 End: December 23, 2024 Ani Eduardo SERVICE COUNTER CASHIER, SERVICE COUNTER CASHIER-C Attending Provider Active Start: December 23, 2024 [...] Inactive Member Role/Relationship Status Dates Anat Gutiérrez SERVICE COUNTER CASHIER, SERVICE COUNTER CASHIER-C Referring Provider Active Start: February 08, 2025 End: February 08, 2025 Ani Eduardo SERVICE COUNTER CASHIER, SERVICE COUNTER CASHIER-C Attending Provider Active Start: February 08, 2025 [...] End: March 15, 2025 Dr. Macario Alex , [...] Active Start: March 16, 2025 Dr. Sudhir Izquierod MD Other Provider Active Start: March 16, [...] 2025 End: April 10, 2025 Ani Eduardo SERVICE COUNTER CASHIER, SERVICE COUNTER CASHIER-C Attending Provider Active Start: April 10, 2025 [...] 2025 End: April 19, 2025 Dr. Erik Goemz MD Emergency Provider Active Start: April 16, [...] Provider Active Sta rt: April 18, 2025 Geography Head Relationship Specialty Start Date End Date Misbah Elkins MD [address] [place] [address] PCP - General Internal Medicine 03/26/21 Soila Easton APRN.COMPANY MARKER [address] [place], [place] [address] Dry Mixer Internal Medicine 09/04/24 Geography Head Relationship Specialty Start Date End Date Misbah Elkins MD [address] [place], [place] [address] PCP - General Internal Medicine 03/26/21 Soila Easton APRN.COMPANY MARKER [address] [place] [address] Dry Mixer Internal Medicine 09/04/24 Geography Head Relationship Specialty Start Date End Date Misbah Elkins MD [address] [place] [address] PCP - General Internal Medicine 03/26/21 Older, UNA Rodriguez.COMPANY MARKER [address] [place] [address] [facility] Internal Medicine 09/04/24 Team Status: Inactive [...] Inactive Member Role/Relationship Status Dates Anat Gutiérrez SERVICE COUNTER CASHIER, SERVICE COUNTER CASHIER-C Referring Provider Active Start: February 08, 2025 End: February 08, 2025 Ani Eduardo SERVICE COUNTER CASHIER, SERVICE COUNTER CASHIER-C Attending Provider Active Start: February 08, 2025 [...] 2025 End: March 15, 2025 Dr. Jacky Peerz MD Other Provider Active St art: March [...] art: March 15, 2025 Dr. Aris Black , Other Provider Active Start: March 15, 2025 [...] Active St art: March 16, 2025 Dr. Crickte Hoover MD Other Provider Active S tart: [...] Sta rt: March 16, 2025 Dr. Jhony Aragno MD Other Provider Active Star t: March [...] 2025 End: April 10, 2025 Ani Eduardo SERVICE COUNTER CASHIER, SERVICE COUNTER CASHIER-C Attending Provider Active Start: April 10, 2025 [...] Inactive Member Role/Relationship Status Dates Anat Gutiérrez SERVICE COUNTER CASHIER, SERVICE COUNTER CASHIER-C Referring Provider Active Start: February 08, 2025 End: February 08, 2025 Ani Eduardo SERVICE COUNTER CASHIER, SERVICE COUNTER CASHIER-C Attending Provider Active Start: February 08, 2025 [...] 2025 End: April 10, 2025 Ani Eduardo SERVICE COUNTER CASHIER, SERVICE COUNTER CASHIER-C Attending Provider Active Start: April 10, 2025 [...] April 26, 2025 End: April 26, 2025 Gabby Martinez PA Referring Provider Active Start: April 26, 2025 End: April 26, 2025 Team Status: Active Member Role/Relationship Status Dates Dr. Misbah Elkins MD Primary Care Provider Active Start: April 27, 2025 Gabby Martinez PA Attending Provider Active Start: April 27, 2025 Gabby Martinez PA Referring Provider Active Start: April 27, 2025 Team Status: Inactive Member Role/Relationship Status Dates Dr. Misbah Elkins MD Primary Care Provider Active Start: April 27, 2025 End: April 27, 2025 Gabby Martinez PA Attending Provider Active Start: April 27, 2025 End: April 27, 2025 Gabby Martinez PA Referring Provider Active Start: April 27, 2025 End: April 27, 2025 Team Status: Inactive Member Role/Relationship Status Dates Dr. Misbah Elkins MD Primary Care Provider Active Start: May 10, 2025 End: May 10, 2025 Dr. Joanne Kelly MD Emergency Provider Active S tart: May 10, 2025 End: May 10, 2025 Geography Head Relationship Specialty Start Date End Date Misbah Elkins MD [address] [facility] [place] [address] PCP - General Internal Medicine 03/26/21 Soila Easton APRN.COMPANY MARKER [address] [place] [address] Dry Mixer Internal Medicine 09/04/24 Geography Head Relationship Specialty Start Date End Date Misbah Elkins MD [address] [facility] [place] [address] PCP - General Internal Medicine 03/26/21 Soila Easton APRN.COMPANY MARKER [address] [place] [address] Dry Mixer Internal Medicine 09/04/24 Geography Head Relationship Specialty Start Date End Date Misbah Elkins MD [address] [facility] [place] [address] PCP - General Internal Medicine 03/26/21 Soila Easton APRN.COMPANY MARKER [address] [place] [address] Dry Mixer Internal Medicine 09/04/24 Geography Head Relationship Specialty Start Date End Date Misbah Elkins MD [address] [place] [address] PCP - General Internal Medicine 03/26/21 Soila Easton APRN.COMPANY MARKER [address] [place] [address] Dry Mixer Internal Medicine 09/04/24 Team Status: Inactive Member [...] 2025 End: May 24, 2025 Ani Eduardo SERVICE COUNTER CASHIER, SERVICE COUNTER CASHIER-C Attending Provider Active Start: May 24, 2025 [...] Inactive Member Role/Relationship Status Dates Anat Gutiérrez SERVICE COUNTER CASHIER, SERVICE COUNTER CASHIER-C Referring Provider Active Start: February 08, 2025 End: February 08, 2025 Ani Eduardo SERVICE COUNTER CASHIER, SERVICE COUNTER CASHIER-C Attending Provider Active Start: February 08, 2025 [...] 13, 2025 End: March 15, 2025 Dr. Gonzaol Sebastian DO Other Provider Active Start : [...] 2025 End: April 10, 2025 Ani Eduardo SERVICE COUNTER CASHIER, SERVICE COUNTER CASHIER-C Attending Provider Active Start: April 10, 2025 [...] 2025 End: May 24, 2025 Ani Eduardo SERVICE COUNTER CASHIER, SERVICE COUNTER CASHIER-C Attending Provider Active Start: May 24, 2025 [...] May 24, 2025 End: May 24, 2025 Geography Head Relationship Specialty Start Date End Date Misbah Elkins MD [address] [place] [address] PCP - General Internal Medicine 03/26/21 Soila Easton, UNA.COMPANY MARKER [address] [facility] [place] [address] Dry Mixer Internal Medicine 09/04/24 Geography Head Relationship Specialty Start Date End Date Misbah Elkins MD [address] [place] [address] PCP - General Internal Medicine 03/26/21 Soila Easton, SALES MARKETING.COMPANY MARKER [address] [facility] [place] [address] Dry Mixer Internal Medicine 09/04/24 Team Status: Active Member [...] 2025 End: March 15, 2025 Dr. Pako Fernnádez MD Admitting physician Active Start: March 13, [...] Department Physician Active Start: 2024 Dr. Pako eFrnández MD Admitting physician Active Start: March 14, [...] Start: March 15, 2025 Dr. Gonzalo Sebastian DO Attending physician Active Start: March 15, 2025 Dr. Gonzalo Sebastian DO Nurse Practitioner Active S tart: March 15, [...] Practitioner Active Start: March 15, 2025 Dr. Demacro Cervantes MD Nurse Practitioner Active Start: March 15, 2025 Team Status: Active Member Role/Relationship Status Dates Dr. Misbah Elkins MD Primary care physician Active Start: March 15, 2025 Dr. Macario Alex , Emergency Department Physician Active Start: March 15, [...] Start: March 15, 2025 Dr. Hever Marrufo , DO Nurse Practitioner Active Start: March 15, [...] Practitioner Active Start: March 16, 2025 Dr. uSdhir Izquierdo MD Attending physician Activ e Start: [...] 2025 End: April 10, 2025 Ani Eduardo SERVICE COUNTER CASHIER, SERVICE COUNTER CASHIER-C Attending physician Active Start: April 10, 2025 [...] End: April 19, 2025 Dr. Jackson Monk , Admitting physician Active Start: April 16, 2025 [...] April 17, 2025 Dr. Jackson Monk DO Admitting physician Active Start: April 17, [...] April 18, 2025 Dr. Jackson Monk DO Admitting physician Active Start: April 18, 2025 Dr. Jackson Monk DO Nurse Practitioner [...] 2025 End: May 24, 2025 Ani Eduardo SERVICE COUNTER CASHIER, SERVICE COUNTER CASHIER-C Attending physician Active Start: May 24, 2025 [...] 24, 2025 Dr. Mo Velasco DO Attending physician Active Star t: May [...] BE BASED ON THE PRIMARY CLINICAL RECORDS. [employer] provides no warranty or guarantee of the accuracy or completeness of information in this document.
[2025-07-13 00:20] LABS: Red Blood Cells-Urine 0-5 SEEN /hpf (0-5); Squamous Epithelial Cells - UA 0-5 SEEN /hpf (5-10)
[2025-07-13 00:21] LABS: Mucous, Urine 3+ /hpf (<or=2+)
--- OUTSIDE RECORDS SUMMARY | 2025-07-13 01:07 | XMS RPT_ITS | CCD ---
Author Organization [facility] Care Team Providers Care Regulatory Affairs Coordinator Name Role Phone TAZTERECHING Unavailable Unavailable Misbah Elkins MD Primary Care Provider Ho TOPSTITCHER ZIGZAG, TOPSTITCHER ZIGZAG-C Theron Primary Care Provider Dr. Freddie Perdue Attending Provider Dr. Freddie Perdue Referring Provider Misbah Elkins MD Primary Care Provider Misbah Elkins MD Primary Care Provider RUSTAM, TOPSTITCHER ZIGZAG-C SOILA Primary Care Provider Alehsa TOPSTITCHER ZIGZAG, TOPSTITCHER ZIGZAG-C Ani Attending Provider Alesha TOPSTITCHER ZIGZAG, TOPSTITCHER ZIGZAG-C Ani Referring Provider Unavailable Primary Care Provider Unavailabl e Free, Text Entry Unavailable Unavailable Older, Soila A Unavailable Unavailable Yalamanchali, Varija Unavailable Unavailable Prennorah, Yrn Unavailable Unavailable Older, Soila A Unavailable Jaime Aggarwal MD Unavailable Jeffery Jin MD Unavailable Dr. Edmund Tang Emergency Provider [phone] Ciarra Ross Admit Provider Dr. [...] Dieter Harrison Other Provider Unavailab anjelica Eduardo TOPSTITCHER ZIGZAG, TOPSTITCHER ZIGZAG-C Ani Other Provider Dr. Anastacia Bonilla Other Provider [phone] Dr. Anastacia Bonilla Attending Provider Dr. Courtney Iverson Other Provider [phone] Donn Galan Attending Provider [phone] PROVIDER, UNKNOWN Admitting Unavailable PROVIDER, UNKNOWN Attending [...] Unavailable Pending, Provider Primary Care Unavailable OLDER, TOPSTITCHER ZIGZAG-C SOILA Primary Care Provider OLDER, TOPSTITCHER ZIGZAG-C SOILA Referring Provider Alesha TOPSTITCHER ZIGZAG, TOPSTITCHER ZIGZAG-C Ani Attending Provider Dr. Víctor Huerta Emergency Provider Brock TOPSTITCHER ZIGZAG, TOPSTITCHER ZIGZAG-C Anat Primary Care Provider Dr. Carin Meraz Admit Provider Dr. Carin Meraz Other Provider Dr. Anastacia Bonilla Attending Provider Dr. Anastacia Bonilla Other Provider Dr. Bert Greenwood Attending Provider Dr. Bert Greenwood Other Provider Satnam MENENDEZ, Misbah Primary Care Provider Candie Talley PA-C Unavailable Older SENIOR ERP CONSULTANT.PROPERTY DISPOSAL OFFICER, Soila Unavailable Neo BELTRAN, Nara Unavailable Satnam MENENDEZ, Dr. Anguiano Primary Care Provider Alesha TOPSTITCHER ZIGZAG-C, Ani Attending Provider Alesha TOPSTITCHER ZIGZAG-CAni Referring Provider Storm MENENDEZ, Dr. Gamez Emergency Provider Dr. Aleta Aguayo DO Admit Provider Dr. Aleta Aguayo DO Attending Provider Dr. Aleta Aguayo DO Other Provider Dr. Yrn Kahn DO Attending Provider Leigh MENENDEZ, Dr. Conde Other Provider Shannon MENENDEZ, Dr. Davis Other Provider Iron MENENDEZ, Dr. Frazier Other Provider Dr. Gonzalo Sebastian DO Other Provider Lorenza MENENDEZ, Dr. Jackson Salas Other Provider [phone] Chris MENENDEZ, Dr. Rico Other Provider Kiko MENENDEZ, Dr. Harley Other Provider Robbie MENENDEZ, Dr. Urban Other Provider Randee MENENDEZ, Dr. Guillory Other Provider Silvio MENENDEZ, Dr. Kelley Other Provider [phone] Candido MENENDEZ, Dr. Sandoval Other Provider [phone] Brad MENENDEZ, Dr. Em Other Provider Fede MENENDEZ, Dr. Rodriguez Other [facility] Hurt MD, Dr. Ward Other Provider [phone] Conchita MENENDEZ, Dr. Booker Other Provider Yamel [...] Provider Iron MENENDEZ, Dr. Frazier Other Provider [phone] Dr. Gonzalo Sebastian DO Other Provider Lorenza MENENDEZ, Dr. Jackson Salas Other Provider [phone] Chris MENENDEZ, Dr. Rico Other Provider [phone] Kiko MENENDEZ, Dr. Harley Other Provider [phone] Robbie MENENDEZ, Dr. Urban Other Provider Randee [...] Yamel MENENDEZ, Dr. Johnson Other Provider [phone] Manuel MENENDEZ, Dr. Doan Other Provider Niru LOTT, Dr. Kathleen Other Provider [phone] Nancy MENENDEZ, Dr. Sánchez Other Provider [phone] Tr MENENDEZ, Dr. Gutierres Other Provider [phone] Sofia LOTT, Dr. Hurst Other Provider Jeferson MENENDEZ, Dr. Barreto Other Provider Billy MENENDEZ, Dr. Pal Other Provider Dr. Yrn Kahn DO Attending Provider [phone] Chad MENENDEZ, Dr. Anastacia Ni Other Provider Dr. Marshal Segura DO Attending Provider Satnam MENENDEZ, Dr. Anguiano Primary Care Provider Alesha TOPSTITCHER ZIGZAG-CAni Attending Provider Alesha TOPSTITCHER ZIGZAG-CAni Referring Provider Storm MENENDEZ, Dr. Gamez Emergency [...] MENENDEZ, Dr. Jackson Salas Other Provider Chris MEENNDEZ, Dr. Rico Other Provider [phone] Kiko MENENDEZ, Dr. Harley Other Provider Robbie MENENDEZ, Dr. Urban Other Provider [phone] Randee MENENDEZ, Dr. Guillory Other Provider Silvio MENENDEZ, Dr. Kelley Other Provider [phone] Dr. Jaime Rey MD Other Provider Brad MENENDEZ, Dr. Em Other Provider Fede MENENDEZ, Dr. Rodriguez [facility] cherry Hurt MD, Dr. Ward Other Provider Dr. Jhony Arango MD Other Provider Yamel MENENDEZ, Dr. Johnson Other Provider Dr. Franki Jackson MD Other Provider Dr. Hever Marrufo DO Other Provider Nancy MENENDEZ, Dr. Sánchez Other Provider Dr. Nenita Armando MD Other Provider [phone] Dr. Aris Black DO Other Provider Jeferson [...] Storm MENENDEZ, Dr. Gamez Attending Provider Brock TOPSTITCHER ZIGZAG-C, Anat Referring Provider Abi LOTT, Dr. Camacho Emergency Provider Jolene MENENDEZ, Dr. Min Attending Provider Jolene MENENDEZ, Dr. Min Admit Provider Jolene MENENDEZ, Dr. Min Other Provider Felecia MENENDEZ, Dr. Suhdir Monte Attending Provider Felecia MENENDEZ, Dr. Sudhir Monte Other Provider Provider , Elisa Elkins MD, Dr. Anguiano Primary Care Provider Leigh MENENDEZ, Dr. Conde Other Provider Shannon MENENDEZ, Dr. Davis Other Provider Iron MENENDEZ, Dr. Frazier Other Provider Dr. Gonzalo Sebastian DO Other Provider Lorenza MENENDEZ, Dr. Jackson Salas Other Provider Chris MENENDEZ, Dr. Rico Other Provider [phone] Kiko MENENDEZ, Dr. Harley Other Provider Robbie MENENDEZ, Dr. Urban Other Provider [phone] Randee MENENDEZ, Dr. Guillory Other Provider [phone] Silvio MENENDEZ, Dr. Kelley Other Provider [phone] Candido MENENDEZ, Dr. Sandoval Other Provider [phone] Brad MENENDEZ, Dr. Em Other Provider Fede MENENDEZ, Dr. Rodriguez Other Provider Unavailabl cherry Hurt MD, Dr. Ward Other Provider [phone] Conchita MENENDEZ, Dr. Booker Other Provider Yamel MENENDEZ, Dr. Johnson Other Provider Manuel MENENDEZ, Dr. Doan Other Provider Niru LOTT, Dr. Kathleen Other Provider Nancy MENENDEZ, Dr. Sánchez Other Provider [phone] Tr MENENDEZ, Dr. Gutierres Other Provider [phone] Aris Black DO Other Provider Jeferson MENENDEZ, Dr. Barreto Other Provider Billy MENENDEZ, Dr. Pal Other Provider Chad MENENDEZ, Dr. Anastacia Ni Other Provider Dr. Gonzalo Sebastian DO Attending Provider Alesha HERNANDEZ-C, Ani Attending Provider Felecia MENENDEZ, Dr. Sudhir Monte Referring Provider Satnam MENENDEZ, Dr. Anguiano Primary Care Provider [phone] Satnam MENENDEZ, Dr. Anguiano Referring Provider Storm MENENDEZ, Dr. Gamez Emergency Provider Legih MENENDEZ, Dr. Conde Other Provider Shannon MENENDEZ, Dr. Davis Other Provider Iron MENENDEZ, Dr. Frazier Other Provider Romulo LOTT, Dr. Sánchez Other Provider Lorenza MENENDEZ, Dr. Jackson Salas Other Provider [phone] Chris MENENDEZ, Dr. Rico Other Provider [phone] Kiko MENENDEZ, Dr. Harley Other Provider [phone] Robbie MENENDEZ, Dr. Urban Other Provider Randee MENENDEZ, Dr. Guillory Other Provider [phone] Silvio MENENDEZ, Dr. Kelley Other Provider [phone] Candido MENENDEZ, Dr. Sandoval Other Provider [phone] Brad MENENDEZ, Dr. Em Other Provider Fede MENENDEZ, Dr. Rodriguez Other Provider Unavailabl cherry Hurt MD, Dr. Ward Other Provider [phone] Conchita MENENDEZ, Dr. Booker Other Provider Yamel MENENDEZ, Dr. Johnson Other Provider [phone] Manuel MENENDEZ, Dr. Doan Other Provider [phone] Dr. Hever Marrufo DO Other Provider [phone] Nancy MENENDEZ, Dr. Sánchez Other Provider [phone] Tr MENENDEZ, Dr. Gutierres Other Provider [phone] Aris Black DO Other Provider Jeferson MENENDEZ, Dr. Barreto Other Provider Blily MENENDEZ, Dr. Pal Other Provider [phone] Romulo LOTT, Dr. Sánchez Attending Provider Patricia [...] MENENDEZ, Dr. Anguiano Primary Care Provider Alesha TOPSTITCHER ZIGZAG-CAni Attending Provider Dr. Misbah Elkins MD Referring [...] Care Unavailable OLDER, SOILA Referring Unavailable GANTA, MISABH Attending Unavailable GANTA, MISBAH Primary Care Unavailable GANTA, MISBAH Primary Care Unavailable OLDER, SOILA Referring Unavailable GANTA, MISBAH Primary Care Unavailable YOUNGBLOOD, TARA MISTY Referring Unavailabl e GANTA, MISBAH Attending Unavailable GANTA, MISBAH Primary Care Unavailable GANTA, MISBAH Primary Care Unavailable OLDER, SOILA Attending Unavailable DIONICIO, VANESSA A Attending Unavailable GANTA, MISBAH Primary Care Unavailable SIDDIKI, KNIGHT Referring Unavailable GANTA, MISBAH Primary Care Unavailable NICOLAS GREER Attending Unavailable RODERICK, GURJIT Referring Unavailable GANTA, MISBAH Primary Care Unavailable YOUNGBLOOD, TARA MISTY Referring Unavailabl e GANTA, MISBAH Primary Care Unavailable GANTA, MISBAH Referring Unavailable GANTA, MISBAH Primary Care Unavailable OLDER, SOILA Attending Unavailable GANTA, MISBAH Primary Care Unavailable GANTA, MISBAH Referring Unavailable Ganta , Dr. Anguiano Primary Care Physician Dr. Macario Alex DO Emergency Departmen t Physician Dr. Pako Fernández MD Attending Physician Dr. Pako Fernández MD Admitting Physician Dr. Pako Fernández MD Nurse Practitioner Felecia MENENDEZ, Dr. Sudhir Monte Attending Physician Leigh MENENDEZ, Dr. Conde Nurse Practitioner Shannon MENENDEZ, Dr. Davis Nurse Practitioner [phone] Iron MENENDEZ, Dr. Frazier Nurse Practitioner Dr. Gonzalo Sebastian DO Nurse Practitioner Lorenza MENENDEZ, Dr. Jackson Salas Nurse Practitioner Chris MENENDEZ, Dr. Rico Nurse Practitioner Kiko MENENDEZ, Dr. Harley Nurse Practitioner Robbie MENENDEZ, Dr. Urban Nurse Practitioner Randee MENENDEZ, Dr. Guillory Nurse Practitioner Silvio MENENDEZ, Dr. Kelley Nurse Practitioner Candido MENENDEZ, Dr. Sandoval Nurse Practitioner [phone] Brad MENENDEZ, Dr. Em Nurse Practitioner [phone] Fede MENENDEZ, Dr. Rodriguez Nurse Practitioner Unavail able Blu MENENDEZ, Dr. Ward Nurse Practitioner Conchita MENENDEZ, Dr. Booker Nurse Practitioner Yamel MENENDEZ, Dr. Johnson Nurse Practitioner Manuel MENENDEZ, Dr. Doan Nurse Practitioner Niru LOTT, Dr. Kathleen Nurse Practitioner Nancy MENENDEZ, Dr. Sánchez Nurse Practitioner Tr MENENDEZ, Dr. Gutierres Nurse Practitioner Sofia LOTT, Dr. Hurst Nurse Practitioner [phone] Jeferson MENENDEZ, Dr. Barreto Nurse Practitioner Billy MENENDEZ, Dr. Pal Nurse Practitioner Felecia MENENDEZ, Dr. Sudhir Monte Nurse Practitioner Dr. Gonzalo Sebastian DO Attending Physician Alesha TOPSTITCHER ZIGZAG-C, Ani Attending Physician Patricia MENENDEZ, Dr. Valencia Emergency Department [facility] ici Dr. Jackson Monk DO Admitting Physician Ana Maria vailable Monk DO, Dr. Paz Nurse Practitioner Ana Mariav javier Greenwood MD, Dr. Noel Nurse Practitioner Timo MENENDEZ, Dr. Noel Attending Physician Gabby Vela Attending Physician [phone] Robin MENENDEZ, Dr. Rubio Attending Physician Unavaila devon Kelly MD, Dr. Rubio Emergency Department Physici an Unavailable Valentine MENENDEZ, Dr. Peguero Attending Physician Anjelica LOTT, Dr. Hassan Attending Physician Anjelica LOTT, Dr. Hassan Emergency Department Physician Colton LOTT, Dr. Araya Attending Physician Colton LOTT, Dr. Araya Nurse Practitioner Clyde MENENDEZ, Dr. Shaffer Emergency Department Physician Alesha TOPSTITCHER ZIGZAG, Ani Attending Unavailable Alesha TOPSTITCHER ZIGZAG, Ani Referring Unavailable [facility] Unavailable Erik Gomez Referring Unavailable [facility] Unavailable Sudhir Izquierdo Attending Unavailable Jackson Monk Consulting Unavailable Jackson Monk Admitting Unavailable Bert Greenwood Consulting Unavailable Aleta Aguayo Consulting Unavailable Aleta Aguayo Admitting Unavailable Anastacia Bonilla [facility] Unavailable Yrn Kahn Consulting [facility] Unavailable Sudhir Izquierdo Attending [...] Consulting Unavailable Demarco Cervantes Consulting Unavailable Sudhir Iqzuierdo Attending Unavailable Erik Gomez Referring Unavailable Ganta, [...] Unavailable Ganta, Misbah Primary Care Unavailable Alesha TOPSTITCHER ZIGZAG, Ani Referring Unavailable Alesha TOPSTITCHER ZIGZAG, Ani Attending Unavailable Ganta, Misbah Primary Care Unavailable Ganta, Misbah Primary Care Unavailable Joanne Kelly Attending Unavailable Romeoam Anastacia Raine Attending Unavailable Koram, Anastacia Ranie Consulting Unavailable Ganta, Misbah Primary Care Unavailable Pako Fernández Attending Unavailable Ganta, Misbah Primary Care Unavailable Mo Velasco Attending Unavailable Ganta, Misbah Primary Care Unavailable Sudhir Izquierdo Attending Unavailable Pako Fernández Admitting Unavailable Pako Fernández Consulting Unavailable Sudhir Izquierdo Consulting Unavailable Elton Abraham Consulting Unavailable Ryan Ortega Consulting Unavailable Freddie Perdue Consulting Unavailable Gonzalo Sbeastian Consulting Unavailable Jackson Britt Consulting Unavailable Jacky [...] Unavailable Ganta, Misbah Primary Care Unavailable Alesha TOPSTITCHER ZIGZAG, Ani Attending Unavailable Ganta, Misbah Referring Unavailable Ganta, Misbah Primary Care Unavailable Friend, Marshal Attending Unavailable Friend, Marshal Consulting Unavailable Ganta, Misbah Referring Unavailable Ganta, Misbah Primary Care Unavailable Bridgette Gaxiola Attending Unavailkalyan Eduardo TOPSTITCHER ZIGZAG, Ani Referring Unavailable Gonzalo Sebastian Attending Unavailable [...] Attending Unavailable Anat Gutiérrez NP Referring Unavailable [facility] Unavailable Gabby Martinez Referring Unavailable Gabby Martinez Attending Unavailable [facility] Unavailable Gabby Martinez Referring Unavailable Gabby Martinez Attending Unavailable Allergies Allergy Classification Reported Allergen(s) Allergy Type Date of Onset Reaction(s) Facility (20 sources) diazePAM; Translations: [DIAZEPAM] Drug Allergy 11-02-19 14 Other: See Comments [facility] Work Phone: (20 sources) HYDROcodone; Translations: [HYDROCODONE] Drug Allergy 08-02-20 [address] [facility] Work Phone: (20 sources) Penicillins; Translations: [PENICILLINS] Drug Allergy 07-07-20 06 Other: See Comments [facility] Work Phone: (20 sources) Penicillins Drug Allergy 07-07-20 06 Other: See Comments [facility] Work Phone: (20 sources) Penicillins Allergy to substance 01-17-20 22 [facility] (6 sources) Acetaminophen / HYDROcodone; Translations: [ACETAMINOPHEN-HYDR OCODONE] Drug Allergy 10-21-19 23 [facility] Work Phone: (5 sources) Penicillins Propensity to adverse reactions to drug 10-21-19 23 [facility] (1 source) Penicillin Drug Allergy 09-28-[address] [facility] (20 sources) Sulfamethoxazole / Trimethoprim; Translations: [SULFAMETHOXAZOLE-T RIMETHOPRIM] Drug Allergy 11-29-19 23 [facility] Work Phone: (1 source) Piperacillin / tazobactam; Translations: [Zosyn] Drug Allergy [facility] Work Phone: (20 sources) Sulfamethoxazole Drug Allergy 07-08-20 23 [facility] (20 sources) Trimethoprim Drug Allergy 07-08-20 23 [facility] (20 sources) Clindamycin Drug Allergy 01-02-20 24 [facility] (20 sources) Penicillins Drug Allergy 07-07-20 Other: See Comments [facility] Work Phone: (1 source) Clindamycin Drug Allergy 07-12-20 [facility] (1 source) HYDROcodone Drug Allergy 07-12-20 [facility] (1 source) Penicillins Drug allergy (disorder) 07-12-20 [facility] (1 source) Sulfamethoxazole Drug Allergy 07-12-20 [facility] (1 source) Trimethoprim Drug Allergy 07-12-20 [facility] Medications Current Medications Medication Drug Class(es) Dates Sig (Normalized) Sig (Original) [id number] 200 actuat albuterol 0.09 mg/actuat metered dose [...] Comment on above: Home blood pressure monitor Qntmnyjtxr-Oavedhft-Sbucvhzb ol (20 sources) Corticosteroid, beta2-Adrenergic Agonist Start: [...] mg/ml ophthalmic solution (1 source) Plasma Volume Addiction Treatment Counselor, Non-Standardized Chemical Allergen Start: 10-29-19 End: 11-28-19 take 1 drop(s) into the eye(s) four times daily Artificial Tears ophthalmic solution ; 1 drop(s) in each eye 4 times a day PRN.ADOD - 2/1Meds to Beds - .Patient Location [address] [address]26 Quantity: 1 Refills: 0 Ordered: [...] ITCHING-.ADOD - .10/28Meds to Beds .Patient Location [address] [address]PRN Reason: Anxiety Quantity: 32 Refills: [...] - 10/29/22.Meds to Beds - .Patient Location [address] 2026 Quantity: 14 Refills: 0 Ordered: [...] 16, 2022 9:33am 20 ml albumin human, fci 250 mg/ml injection (1 source) Human Serum [...] 1 tablet by diya once daily. amylase 010233 unt / lipase 13203 unt / protease 16387 unt delayed release oral capsule (20 sources) Start: 11-01-2022 take 67940-84237 capsules by mouth three times daily at mealtime Ynxndt-Ccxufcyo-Iso lase (Creon) 24,000-76,000 -120,000 unit capsule,delayed release(DR/EC) Active 1 CAP PO 3 TIMES DAILY WITH MEALS November 01, 2022 1:00am Start: 03-26-2021 End: 01-26-2024 take 28715-03896 capsules by mouth twice daily Vpmnoa-Lhgetnik-Otdwdxu (Creon) 24,000-76,000 -120,000 unit capsule,delayed release(DR/EC) Discontinued 2 NMA PO TWICE A DAY November 01, 2022 1:00am January 26, 2024 11:52am Start: 12-10-2019 End: 12-19-2024 Start: 12-10-2019 Lipase-Proteas e-Amylase Active 3 EACH PO TWICE A DAY December 10, 2019 6:59am Comment on above: Take 3 capsules by m outh twice daily with meals. Take 3 capsules by m outh once daily. Eyntqkn-Lprwkl-Caajgfpe (CREON 10 ORAL) (1 source) Dkrzuom-Ozttwp-O rotea se (CREON 10 ORAL) Take 24,000 [...] Comment on above: Take 1 tablet by [facility] three times daily. calcium chloride 0.0014 meq/ml [...] 20, 2019 12:00am April 05, 2020 10:01am Kxawmlhecbc-Yujdosdbe-Vbxekv er (20 sources) Anticholinergic, Corticosteroid, beta2-Adrenergic Agonist Start: 06-30-2023 End: 01-26-2024 Start: 06-30-2023 End: 01-26-2024 Dfinrvalpik-Hydmbmdsp-Javokd er (Trelegy Ellipta) 100-62.5-25 mcg blister with [...] 06-12-2021 End: 09-10-2021 Start: 06-12-2021 End: 09-10-2021 Uoaykdqjipx-Ewcqibkfk-Rdajzh er (Trelegy Ellipta) 100-62.5-25 mcg blister with device Discontinued 1 NMA INHALATION DAILY June 12, 2021 2:44am September 10, 2021 10:54am Start: 06-12-2021 End: 09-10-2021 Fqeumlkfuou-Ntpwqegty-Dxaygk er (Trelegy Ellipta) 100-62.5-25 mcg blister with device Discontinued 1 INH INHALATION DAILY June 12, 2021 1:44am September 10, 2021 9:54am Start: 06-12-2021 End: 09-10-2021 Jqisjyoothg-Okocmntha-Kydsiz er (Trelegy Ellipta) 100-62.5-25 mcg blister with device Discontinued 1 INH INHALATION DAILY June 12, 2021 2:44am September 10, 2021 10:54am Start: 03-29-2021 End: 06-12-2021 Mbunhkclair-Fcazgxnjw-Brnkay er (Trelegy Ellipta) 100-62.5-25 mcg blister with device Discontinued 1 INH INHALATION DAILY March 29, 2021 11:35am June 12, 2021 2:44am Start: 03-29-2021 End: 06-12-2021 Start: 03-29-2021 End: 06-12-2021 Jgpggulukwg-Bwveywkfu-Negdfk er (Trelegy Ellipta) 100-62.5-25 mcg blister with device Discontinued 1 NMA INHALATION DAILY 60 March 29, 2021 12:00am June 12, 2021 2:44am Start: 03-29-2021 End: 06-12-2021 Ocjbwpfbdwo-Yidtgakgf-Bxqtxj er (Trelegy Ellipta) 100-62.5-25 mcg blister with device Discontinued 1 INH INHALATION DAILY 60 March 28, 2021 11:00pm June 12, 2021 1:44am Start: 03-29-2021 End: 06-12-2021 Fbraiolauwe-Mcvzzhlvz-Lxwaye er (Trelegy Ellipta) 100-62.5-25 mcg blister with device Discontinued 1 INH INHALATION DAILY 60 March 29, 2021 12:00am June 12, 2021 2:44am Start: 04-06-2020 End: 04-15-2023 qravztpbtyz-blqmtvadt-vyzffm er (TRELEGY ELLIPTA) 100-62.5-25 mcg inhalation powder [...] water and spit out; do not swallow Vsykmzvmsmz-Krrpfcdrs-Hikvmv er (20 sources) Start: 08-29-2024 End: 12-23-2024 Start: 08-29-2024 Fluticasone-Um eclidin-Vilanter (Trelegy Ellipta) 200-62.5-25 mcg blister with device Active 1 NMA INHALATION DAILY 3 August 29, 2024 10:29am Start: 05-11-2024 End: 08-29-2024 Start: 05-11-2024 End: 08-29-2024 Grrvwjqezeu-Ilvihpyry-Sslrks er (Trelegy Ellipta) 200-62.5-25 mcg blister with device Discontinued 1 NMA INHALATION DAILY 3 May 11, 2024 1:32pm August 29, 2024 10:29am Start: 01-26-2024 End: 05-11-2024 Start: 01-26-2024 End: 05-11-2024 Pmjknlplemn-Waxwzsssi-Fjeyoe er (Trelegy Ellipta) 200-62.5-25 mcg blister with [...] mcg/min and titrate per order parameters. nystatin [id number] unt/ml oral suspension (20 sources) Polyene Antifungal [...] - .10/28Meds to Beds - .Patient Location [address] 2026 Quantity: 16 Refills: 0 Ordered: [...] 2.5 ug by inhalation once daily Tiotropium [place] (Spiriva Respimat) 2.5 mcg/actuation mist Discontinued 2 NMA INHALATION daily November 14, 2020 1:00am March 29, 2021 11:33am administer at approximately the same time(s) each day Start: 11-14-2020 End: 03-29-2021 take 1 puff(s) by inhalation once daily Tiotropium [place] (Spiriva Respimat) 2.5 mcg/actuation mist Discontinued 2 [...] infection (2 sources) Viral gastroenteritis due to [place]-like agent; Translations: [Acute gastroenteropathy due to [place] agent] Onset: 5 04-10-2025 Episodic Malaise and [...] 01-07-2019 Chronic Other aftercare (1 source) Other halfway (current) drug therapy; Translations: [Other halfway (current) drug therapy] Onset: 10-29-2022 Episodic Other [...] 07-10-2025 Abdomen/Pelvis W IV Cont ONLY Normal [facility] Absolute lymphocyte countOrd ered By: Joanne Kelly on 07-10-2025 Lymphocytes Auto (Unsp spec) [#/Vol] 2.68 10*3/uL 0.83-4.51 [facility] Anion gap in Serum or Plasma Ordered By: Joanne Kelly on 07-10-2025 Anion gap [Moles/Vol] 8 mmol/L - [facility] Automated lymphocyte count a s percentage of total leukocytesOrdered By: Joanne Kelly on 07-10-2025 Lymphocytes/100 WBC Auto (Unsp spec) 16.7 % Low 19- [facility] BUN/creatinine ratioOrdered By: Joanne Kelly on 07-10-2025 Urea nitrogen/Creatinine [Mass ratio] 14.4 mg/mg - [facility] Basophil percentageOrdered B y: Joanne Kelly on 10-13-2025 Basophils/100 WBC (Bld) 0.6 % 0-1 [facility] Bilirubin Test strip Ql (U)O rdered By: Joanne Kelly on 07-10-2025 Bilirubin Ql (U) Negative Negative [facility] Bilirubin, totalOrdered By: Joanne Kelly on 07-10-2025 Bilirubin [Mass/Vol] 0.26 mg/dL 0.00-1.30 [facility] CBC W/Diff, Automatedon 06-28 Absolute Lymph 2.68 X10 3/uL Normal 0.83-4.51 [facility] Comment on above: Performed By: #### L 100.0100, L500.4050, L501.2450 ####[facility] [address] [place], [address] Absolute Neut 11.4 X10 3/uL High 2.0-7.7 [facility] Comment on above: Performed By: #### L 100.0100, L500.4050, L501.2450 ####[facility] [address] [place], [address] Basophils/100 WBC (Bld) 0.6 % Normal 0-1 [facility] Comment on above: Performed By: #### L 100.0100, L500.4050, L501.2450 ####[facility] [address] [place], [address] Eosinophils/100 WBC (Bld) 3.2 % Normal 0-5 [facility] Comment on above: Performed By: #### L 100.0100, L500.4050, L501.2450 ####[facility] [address] [place], [address] Erythrocyte distribution width (RBC) [Ratio] 13.7 % Normal 11.6-14.6 [facility] Comment on above: Performed By: #### L 100.0100, L500.4050, L501.2450 ####[facility] [facility] [address] [place], [address] Hematocrit (Bld) [Volume fraction] 38.4 % Normal 37-47 [facility] Comment on above: Performed By: #### L 100.0100, L500.4050, L501.2450 ####[facility] [address] [place], [address] Hemoglobin (Bld) [Mass/Vol] 11.8 g/dL Low 12.0-15.0 [facility] Comment on above: Performed By: #### L 100.0100, L500.4050, L501.2450 ####[facility] [address] [place], [address] IG% 0.900 Normal 0.0-0.9 [facility] Comment on above: Result Comment: IG% - Immature Granulocytes (promyelocytes, myelocytes andmetamyelocytes) > 1% indicates that a LEFT SHIFT is Present. Performed By: #### L 100.0100, L500.4050, L501.2450 ####[facility] [address] [place], [address] Lymphocytes/100 WBC (Bld) 16.7 % Low 19-41 [facility] Comment on above: Performed By: #### L 100.0100, L500.4050, L501.2450 ####[facility] [address] [place], [address] MCH (RBC) [Entitic mass] 26.9 pg Low 27.0-32.0 [facility] Comment on above: Performed By: #### L 100.0100, L500.4050, L501.2450 ####[facility] [address] [place], [address] MCHC (RBC) [Mass/Vol] 30.7 g/dL Low 32-36 [facility] Comment on above: Performed By: #### L 100.0100, L500.4050, L501.2450 ####[facility] [address] [place], [address] MCV (RBC) [Entitic vol] 87.7 fL Normal 81-99 [facility] Comment on above: Performed By: #### L 100.0100, L500.4050, L501.2450 ####[facility] [address] [place], [address] Monocytes/100 WBC (Bld) 7.5 % Normal 0-10 [facility] Comment on above: Performed By: #### L 100.0100, L500.4050, L501.2450 ####[facility] [address] [place], [address] Neutrophils/100 WBC (Bld) 71.1 % High 47-70 [facility] Comment on above: Performed By: #### L 100.0100, L500.4050, L501.2450 ####[facility] [address] [place], [address] Nucleated RBC (Bld) [#/Vol] 0 10*3/uL Normal 0-5 [facility] Comment on above: Performed By: #### L 100.0100, L500.4050, L501.2450 ####[facility] [address] [place], [address] Platelet mean volume (Bld) [Entitic vol] 9.6 fL Normal 6.2-12.0 [facility] Comment on above: Performed By: #### L 100.0100, L500.4050, L501.2450 ####[facility] [address] [place], [address] Platelets (Bld) [#/Vol] 332 10*3/uL Normal 150-450 [facility] Comment on above: Performed By: #### L 100.0100, L500.4050, L501.2450 ####[facility] [address] [place], [address] RBC (Bld) [#/Vol] 4.38 10*6/uL Normal 4.2-5.4 [facility] Comment on above: Performed By: #### L 100.0100, L500.4050, L501.2450 ####[facility] [address] [place], [address] RDW SD 43.8 fl Normal 35.1-43.9 [facility] Comment on above: Performed By: #### L 100.0100, L500.4050, L501.2450 ####[facility] [address] [place], [address] WBC (Bld) [#/Vol] 16.1 10*3/uL High 4.4-11.0 [facility] Comment on above: Performed By: #### L 100.0100, L500.4050, L501.2450 ####[facility] [address] [place], [address] Carbon dioxide, total [Moles /volume] in Central venous bloodOrdered By: Joanne Kelly on 07-10-2025 CO2 [Moles/Vol] 33.4 mmol/L High 21.0-32.0 [facility] Chloride assayOrdered By: Jamari Kelly on 07-10-2025 Chloride [Moles/Vol] 92 mmol/L Low 98-108 [facility] Comprehensive Metabolic Prof ilon 07-10-2025 Albumin [Mass/Vol] 3.7 g/dL Normal 3.4-4.8 [facility] Comment on above: Performed By: #### L 100.0100, L500.4050, L501.2450 ####[facility] [address] [place], [address] Albumin/Globulin [Mass ratio] 1.1 {ratio} Normal 0.9-2.4 [facility] Comment on above: Performed By: #### L 100.0100, L500.4050, L501.2450 ####[facility] [address] [place], [address] ALK PHOS 147 U/L High 35-104 [facility] Comment on above: Performed By: #### L 100.0100, L500.4050, L501.2450 ####[facility] [address] [place], [address] ALT [Catalytic activity/Vol] 27 U/L Normal <=34 [facility] Comment on above: Performed By: #### L 100.0100, L500.4050, L501.2450 ####[facility] [address] [place], [address] AST [Catalytic activity/Vol] 30 U/L Normal <=31 [facility] Comment on above: Performed By: #### L 100.0100, L500.4050, L501.2450 ####[facility] [address] [place], [address] Bilirubin [Mass/Vol] 0.26 mg/dL Normal 0.00-1.30 [facility] Comment on above: Performed By: #### L 100.0100, L500.4050, L501.2450 ####[facility] [address] [place], [address] BUN/CRE 14.4 RATIO Normal 10-20 [facility] Comment on above: Performed By: #### L 100.0100, L500.4050, L501.2450 ####[facility] [address] [place], [address] Calcium [Mass/Vol] 9.4 mg/dL Normal 7.6-11.0 [facility] Comment on above: Performed By: #### L 100.0100, L500.4050, L501.2450 ####[facility] [address] [place], [address] Chloride [Moles/Vol] 92 mmol/L Low 98-108 [facility] Comment on above: Performed By: #### L 100.0100, L500.4050, L501.2450 ####[facility] [address] [place], [address] CO2 [Moles/Vol] 33.4 mmol/L High 21.0-32.0 [facility] Comment on above: Performed By: #### L 100.0100, L500.4050, L501.2450 ####[facility] [address] [place], [address] Creatinine [Mass/Vol] 0.66 mg/dL Low 0.70-1.20 [facility] Comment on above: Performed By: #### L 100.0100, L500.4050, L501.2450 ####[facility] [address] [place], [address] ECRCL 73.11 ml/min Normal 50-250 [facility] Comment on above: Performed By: #### L 100.0100, L500.4050, L501.2450 ####[facility] [address] [place], [address] GAP 8 Normal 5-15 [facility] Comment on above: Performed By: #### L 100.0100, L500.4050, L501.2450 ####[facility] [address] [place], [address] GFR/1.73 sq M.predicted among non-blacks MDRD (S/P/Bld) [Vol rate/Area] 99 mL/min/{1.73_m2} Normal >60 [facility] Comment on above: Result Comment: mL/m in/1.73m2 CKD-EPI Creatinine Equation (2020) Performed By: #### L 100.0100, L500.4050, L501.2450 ####[facility] [address] [place], [address] Globulin (S) [Mass/Vol] 3.5 g/dL Normal 2.2-4.2 [facility] Comment on above: Performed By: #### L 100.0100, L500.4050, L501.2450 ####[facility] [address] [place], [address] Glucose [Mass/Vol] 95 mg/dL Normal 70-99 [facility] Comment on above: Performed By: #### L 100.0100, L500.4050, L501.2450 ####[facility] [address] [place], [address] Potassium [Moles/Vol] 4.2 mmol/L Normal 3.3-5.1 [facility] Comment on above: Performed By: #### L 100.0100, L500.4050, L501.2450 ####[facility] [address] [place], [address] Sodium [Moles/Vol] 134 mmol/L Normal 133-145 [facility] Comment on above: Performed By: #### L 100.0100, L500.4050, L501.2450 ####[facility] [address] [place], [address] T PROT 7.2 g/dL Normal 5.9-8.4 [facility] Comment on above: Performed By: #### L 100.0100, L500.4050, L501.2450 ####[facility] [address] [place], [address] Urea nitrogen [Mass/Vol] 9 mg/dL Normal 4-19 [facility] Comment on above: Performed By: #### L 100.0100, L500.4050, L501.2450 ####[facility] [address] [place], [address] Emergency Department Summary on 07-10-2025 Emergency Department Summary Normal [facility] Eosinophil percentageOrdered By: Joanne Kelly on 07-10-2025 Eosinophils/100 WBC (Bld) 3.2 % 0-5 [facility] Erythrocyte distribution wid th ratioOrdered By: Joanne Kelly on 07-10-2025 Erythrocyte distribution width (RBC) [Ratio] 13.7 % 11.6-14.6 [facility] Erythrocyte distribution wid th standard deviationOrdered By: Joanne Kelly on 07-10-2025 Erythrocyte distribution width (RBC) [Ratio] 43.8 fl 35.1-43.9 [facility] Glomerular filtration rate ( GFR) estimation/1.73 sq m using serum, plasma, or whole bOrdered By: Joanne Kelly on 07-10-2025 GFR/1.73 sq M.predicted among non-blacks MDRD (S/P/Bld) [Vol rate/Area] 99 mL/min/{1.73_m2} >60 [facility] Hematocrit Auto (Bld) [Volum e fraction]Ordered By: Joanne Kelly on 07-10-2025 Hematocrit (Bld) [Volume fraction] 38.4 % 37-47 [facility] Hemoglobin measurementOrdere d By: Joanne Kelly on 07-10-2025 Hemoglobin (Bld) [Mass/Vol] 11.8 g/dL Low 12.0-15.0 [facility] Immature granulocytes/100 WB C Auto (Bld)Ordered By: Joanne Kelly on 07-10-2025 Immature granulocytes/100 WBC (Bld) 0.900 % 0.0-0.9 [facility] Ketones Test strip Ql (U)Ord ered By: Joanne Kelly on 07-10-2025 Ketones Ql (U) Negative Negative [facility] Lipaseon 07-10-2025 Lipase [Catalytic activity/Vol] 77 U/L High 13-75 [facility] Comment on above: Result Comment: Jenny capellan note:LIPASE revised reference range effective 23.New Lipase methodology. Expected to produce lower valuesthan the previous assay method.NEW Reference Range: 13 - 75 U/L Performed By: #### L 100.0100, L500.4050, L501.2450 ####[facility] [address] [place], [address] MCV (mean corpuscular volume ) determinationOrdered By: Joanne Kelly on 07-10-2025 MCV (RBC) [Entitic vol] 87.7 fL 81-99 [facility] Mean corpuscular hemoglobin (MCH) determinationOrdered By: Joanne Kelly on 07-10-2025 MCH (RBC) [Entitic mass] 26.9 pg Low 27.0-32.0 [facility] Monocyte percentageOrdered B y: Joannerodrigue Kelly on 07-10-2025 Monocytes/100 WBC (Bld) 7.5 % 0-10 [facility] Mucus LM Ql (Urine sed)Order ed By: Joanne Kelly on 07-10-2025 Mucus Ql (Urine sed) 0 SEEN /hpf [facility] Neutrophil percentageOrdered By: Joanne Kelly on 07-10-2025 Neutrophils/100 WBC (Bld) 71.1 % High 47-70 [facility] Nitrite Test strip Ql (U)Ord ered By: Joannerodrigue Kelly on 07-10-2025 Nitrite Ql (U) Negative Negative [facility] No Panel InformationOrdered By: Joanne Kelly on 07-10-2025 30 U/L <32 [facility] Platelet countOrdered By: Jamari rodrigue Kelly on 07-10-2025 Platelets (Bld) [#/Vol] 332 10*3/uL 150-450 [facility] Potassium measurement (mass/ volume)Ordered By: Joanne Kelly on 07-10-2025 Potassium (Unsp spec) [Mass/Vol] 4.2 mmol/L 3.3-5.1 [facility] Protein Test strip Ql (U)Ord ered By: Joanne Kelly on 07-10-2025 Protein Ql (U) 15 mg/dl High Negative [facility] RBC Auto (Bld) [#/Vol]Ordere d By: Joanne Kelly on 07-10-2025 RBC (Bld) [#/Vol] 4.38 10*6/uL 4.2-5.4 [facility] Serum creatinine measurement (mass/volume)Ordered By: Joanne Kelly on 07-10-2025 Creatinine [Mass/Vol] 0.66 mg/dL Low 0.70-1.20 [facility] Serum globulin measurementOr dered By: Joanne Kelly on 07-10-2025 Globulin (S) [Mass/Vol] 3.5 g/dL 2.2-4.2 [facility] Serum glucose measurement (m ass/volume)Ordered By: Joanne Kelly on 07-10-2025 Glucose [Mass/Vol] 95 mg/dL 70-99 [facility] Serum or plasma alanine pimentel otransferase (ALT) measurementOrdered By: Joanne Kelly on 07-10-2025 ALT [Catalytic activity/Vol] 27 U/L <35 [facility] Serum or plasma albumin esthela urement (mass/volume)Ordered By: Joanne Kelly on 07-10-2025 Albumin [Mass/Vol] 3.7 g/dL 3.4-4.8 [facility] Serum or plasma albumin/glob ulin mass ratioOrdered By: Joanne Kelly on 07-10-2025 Albumin/Globulin [Mass ratio] 1.1 {ratio} 0.9-2.4 [facility] Serum or plasma alkaline jose sphatase measurementOrdered By: Joanne Kelly on 07-10-2025 ALP [Catalytic activity/Vol] 147 U/L High 35-104 [facility] Serum or plasma calcium esthela urement (mass/volume)Ordered By: Joanne Kelly on 07-10-2025 Calcium [Mass/Vol] 9.4 mg/dL 7.6-11.0 [facility] Serum or plasma urea nitroge n measurement (mass/volume)Ordered By: Joanne Kelly on 07-10-2025 Urea nitrogen [Mass/Vol] 9 mg/dL 4-19 [facility] Sodium levelOrdered By: Mahamed Kelly on 07-10-2025 Sodium [Moles/Vol] 134 mmol/L 133-145 [facility] Squamous epithelial cells de tection in urine sediment by light microscopyOrdered By: Joanne Kelly on 07-10-2025 Epithelial cells.squamous LM Ql (Urine sed) 0-5 SEEN /hpf 5-10 [facility] Total proteinOrdered By: Brittnee Kelly on 07-10-2025 Protein [Mass/Vol] 7.2 g/dL 5.9-8.4 [facility] Transitional cells detection in urine sediment by light microscopyOrdered By: Joanne Kelly on 07-10-2025 Transitional cells LM Ql (Urine sed) 0-5 SEEN /hpf 0-5 [facility] Urinalysis, Completeon 07-10 EPI,SQUAMOUS 0-5 SEEN Normal 5-10 [facility] Comment on above: Order Comment: CLEAN CATCH Performed By: #### L 400.0001 ####[facility] [address] [place], [address] EPI,TRANSITION 0-5 SEEN Normal 0-5 [facility] Comment on above: Order Comment: CLEAN CATCH Performed By: #### L 400.0001 ####[facility] [address] [place], [address] RBC 0-5 SEEN Normal 0-5 [facility] Comment on above: Order Comment: CLEAN CATCH Performed By: #### L 400.0001 ####[facility] [address] [place], [address] WBC 0-5 SEEN Normal 0-5 [facility] Comment on above: Order Comment: CLEAN CATCH Performed By: #### L 400.0001 ####[facility] [address] [place], [address] BACTERIA 0 SEEN Normal None Seen [facility] Comment on above: Order Comment: CLEAN CATCH Performed By: #### L 400.0001 ####[facility] [address] [place], [address] Mucus Ql (Urine sed) 0 SEEN Normal [facility] Comment on above: Order Comment: CLEAN CATCH Performed By: #### L 400.0001 ####[facility] [address] [place], [address] Urine clarityOrdered By: Brittnee Kelly on 07-10-2025 Clarity (U) Clear Clear [facility] Urine color determinationOrd ered By: Joanne Kelly on 07-10-2025 Color (U) Yellow Yellow [facility] Urine glucose detectionOrder ed By: Joanne Kelly on 07-10-2025 Glucose Ql (U) Normal mg/dl Normal [facility] Urine leukocyte esterase det ection by dipstickOrdered By: Joanne Kelly on 07-10-2025 Leukocyte esterase Test strip Ql (U) 25 /ul High Negative [facility] Urine pHOrdered By: Joanne steele on 07-10-2025 pH (U) 6.0 [pH] 5.0 - 8.0 [facility] Urine sediment bacteria coun t by microscopy (number/high power field)Ordered By: Joanne Kelly on 07-10-2025 Bacteria LM.HPF (Urine sed) [#/Area] 0 /[HPF] None Seen [facility] Urine specific gravity measu rementOrdered By: Joanne Kelly on 07-10-2025 Specific gravity (U) [Rel density] 1.010 1.002-1.030 [facility] Urine urobilinogen measureme ntOrdered By: Joanne Kelly on 07-10-2025 Urobilinogen Ql (U) Normal mg/dl Normal [facility] White blood cell (WBC) count Ordered By: Joanne Kelly on 07-10-2025 WBC (Bld) [#/Vol] 16.1 10*3/uL High 4.4-11.0 [facility] White blood cell countOrdere d By: Joanne Kelly on 07-10-2025 White blood cell count 0-5 SEEN /hpf 0-5 [facility] Emergency Department Summary on 07-07-2025 Emergency Department Summary Normal [facility] Abdomen/Pelvis W IV Cont ONL Yon 07-06-2025 Abdomen/Pelvis W IV Cont ONLY Normal [facility] Absolute lymphocyte countOrd ered By: ED PROVIDER on 07-06-2025 Lymphocytes Auto (Unsp spec) [#/Vol] 1.36 10*3/uL 0.83-4.51 [facility] Anion gap in Serum or Plasma Ordered By: ED PROVIDER on 07-06-2025 Anion gap [Moles/Vol] 15 mmol/L 5-15 [facility] Automated lymphocyte count a s percentage of total leukocytesOrdered By: ED PROVIDER on 07-06-2025 Lymphocytes/100 WBC Auto (Unsp spec) 7.4 % Low 19-41 [facility] BUN/creatinine ratioOrdered By: ED PROVIDER on 07-06-2025 Urea nitrogen/Creatinine [Mass ratio] 8.0 mg/mg Low 10-20 [facility] Basophil percentageOrdered B y: ED PROVIDER on 07-06-2025 Basophils/100 WBC (Bld) 0.4 % 0-1 [facility] Bilirubin, totalOrdered By: ED PROVIDER on 07-06-2025 Bilirubin [Mass/Vol] 0.18 mg/dL 0.00-1.30 [facility] Blood manual differential co mment interpretation (narrative result)Ordered By: Edmund Tang on 07-06-2025 Manual differential comment Geovany (Bld) [Interp] SCANNED [facility] CBC W/Diff, Automatedon PLT EST ADEQUATE Normal ADEQ [facility] Comment on above: Performed By: #### L 100.0100, L501.2450, L500.4050 ####[facility] [address] [facility] [place], [place], [id number] SMEAR COMMENT SCANNED Normal [facility] Comment on above: Performed By: #### L 100.0100, L501.2450, L500.4050 ####[facility] [address] [place], [place], [id number] Carbon dioxide, total [Moles /volume] in Central venous bloodOrdered By: ED PROVIDER on 07-06-2025 CO2 [Moles/Vol] 28.7 mmol/L 21.0-32.0 [facility] Chloride assayOrdered By: ED PROVIDER on 07-06-2025 Chloride [Moles/Vol] 88 mmol/L Low 98-108 [facility] Comprehensive Metabolic Prof ilon 07-06-2025 Albumin [Mass/Vol] 4.3 g/dL Normal 3.4-4.8 [facility] Comment on above: Performed By: #### L 100.0100, L501.2450, L500.4050 ####[facility] [address] [place], [address] Albumin/Globulin [Mass ratio] 1.1 {ratio} Normal 0.9-2.4 [facility] Comment on above: Performed By: #### L 100.0100, L501.2450, L500.4050 ####[facility] [address] [place], [address] ALK PHOS 151 U/L High 35-104 [facility] Comment on above: Performed By: #### L 100.0100, L501.2450, L500.4050 ####[facility] [address] [place], [address] ALT [Catalytic activity/Vol] 10 U/L Normal <=34 [facility] Comment on above: Performed By: #### L 100.0100, L501.2450, L500.4050 ####[facility] [address] [place], [address] AST [Catalytic activity/Vol] 24 U/L Normal <=31 [facility] Comment on above: Performed By: #### L 100.0100, L501.2450, L500.4050 ####[facility] [address] [place], [address] Bilirubin [Mass/Vol] 0.18 mg/dL Normal 0.00-1.30 [facility] Comment on above: Performed By: #### L 100.0100, L501.2450, L500.4050 ####[facility] [address] [place], [address] BUN/CRE 8.0 RATIO Low 10-20 [facility] Comment on above: Performed By: #### L 100.0100, L501.2450, L500.4050 ####[facility] [address] [place], [address] Calcium [Mass/Vol] 9.0 mg/dL Normal 7.6-11.0 [facility] Comment on above: Performed By: #### L 100.0100, L501.2450, L500.4050 ####[facility] [address] [place], [address] Chloride [Moles/Vol] 88 mmol/L Low 98-108 [facility] Comment on above: Performed By: #### L 100.0100, L501.2450, L500.4050 ####[facility] [address] [place], [address] CO2 [Moles/Vol] 28.7 mmol/L Normal 21.0-32.0 [facility] Comment on above: Performed By: #### L 100.0100, L501.2450, L500.4050 ####[facility] [address] [place], [address] Creatinine [Mass/Vol] 0.79 mg/dL Normal 0.70-1.20 [facility] Comment on above: Performed By: #### L 100.0100, L501.2450, L500.4050 ####[facility] [address] [place], [address] ECRCL 61.08 ml/min Normal 50-250 [facility] Comment on above: Performed By: #### L 100.0100, L501.2450, L500.4050 ####[facility] [address] [place], [address] GAP 15 Normal 5-15 [facility] Comment on above: Performed By: #### L 100.0100, L501.2450, L500.4050 ####[facility] [address] [place], [address] GFR/1.73 sq M.predicted among non-blacks MDRD (S/P/Bld) [Vol rate/Area] 85 mL/min/{1.73_m2} Normal >60 [facility] Comment on above: Result Comment: mL/m in/1.73m2 CKD-EPI Creatinine Equation (2020) Performed By: #### L 100.0100, L501.2450, L500.4050 ####[facility] [address] [place], [address] Globulin (S) [Mass/Vol] 3.8 g/dL Normal 2.2-4.2 [facility] Comment on above: Performed By: #### L 100.0100, L501.2450, L500.4050 ####[facility] [address] [place], [address] Glucose [Mass/Vol] 254 mg/dL High 70-99 [facility] Comment on above: Performed By: #### L 100.0100, L501.2450, L500.4050 ####[facility] [address] [place], [address] Potassium [Moles/Vol] 3.9 mmol/L Normal 3.3-5.1 [facility] Comment on above: Performed By: #### L 100.0100, L501.2450, L500.4050 ####[facility] [address] [place], [address] Sodium [Moles/Vol] 132 mmol/L Low 133-145 [facility] Comment on above: Performed By: #### L 100.0100, L501.2450, L500.4050 ####[facility] [address] [place], [address] T PROT 8.1 g/dL Normal 5.9-8.4 [facility] Comment on above: Performed By: #### L 100.0100, L501.2450, L500.4050 ####[facility] [address] [place], [address] Urea nitrogen [Mass/Vol] 6 mg/dL Normal 4-19 [facility] Comment on above: Performed By: #### L 100.0100, L501.2450, L500.4050 ####[facility] [address] [place], [address] ERCP Biliary/Pancreason ERCP Biliary/Pancreas Normal [facility] ERCP Reporton 07-06-2025 ERCP Report Normal [facility] Eosinophil percentageOrdered By: ED PROVIDER on 07-06-2025 Eosinophils/100 WBC (Bld) 18.3 % High 0-5 [facility] Erythrocyte distribution wid th ratioOrdered By: ED PROVIDER on 07-06-2025 Erythrocyte distribution width (RBC) [Ratio] 13.6 % 11.6-14.6 [facility] Erythrocyte distribution wid th standard deviationOrdered By: ED PROVIDER on 07-06-2025 Erythrocyte distribution width (RBC) [Ratio] 42.5 fl 35.1-43.9 [facility] Glomerular filtration rate ( GFR) estimation/1.73 sq m using serum, plasma, or whole bOrdered By: ED PROVIDER on 07-06-2025 GFR/1.73 sq M.predicted among non-blacks MDRD (S/P/Bld) [Vol rate/Area] 85 mL/min/{1.73_m2} >60 [facility] Hematocrit Auto (Bld) [Volum e fraction]Ordered By: ED PROVIDER on 07-06-2025 Hematocrit (Bld) [Volume fraction] 39.3 % 37-47 [facility] Hemoglobin measurementOrdere d By: ED PROVIDER on 07-06-2025 Hemoglobin (Bld) [Mass/Vol] 12.2 g/dL 12.0-15.0 [facility] Immature granulocytes/100 WB C Auto (Bld)Ordered By: ED PROVIDER on 07-06-2025 Immature granulocytes/100 WBC (Bld) 0.500 % 0.0-0.9 [facility] Lipaseon 07-06-2025 Lipase [Catalytic activity/Vol] 83 U/L High 13-75 [facility] Comment on above: Result Comment: Jenny capellan note:LIPASE revised reference range effective 23.New Lipase methodology. Expected to produce lower valuesthan the previous assay method.NEW Reference Range: 13 - 75 U/L Performed By: #### L 100.0100, L501.2450, L500.4050 ####[facility] [address] [place], [address] MCV (mean corpuscular volume ) determinationOrdered By: ED PROVIDER on 07-06-2025 MCV (RBC) [Entitic vol] 85.4 fL 81-99 [facility] MR/OP.PROVATon 07-06-2025 MR/OP.PROVAT Normal [facility] MR/POSTOP.ANEon 07-06-2025 MR/POSTOP.ANE Normal [facility] MR/KBVKROVM2ug 07-06-2025 MR/POSTOPAN2 Normal [facility] Mean corpuscular hemoglobin (MCH) determinationOrdered By: ED PROVIDER on 07-06-2025 MCH (RBC) [Entitic mass] 26.5 pg Low 27.0-32.0 [facility] Monocyte percentageOrdered B y: ED PROVIDER on 07-06-2025 Monocytes/100 WBC (Bld) 1.1 % 0-10 [facility] Neutrophil percentageOrdered By: ED PROVIDER on 07-06-2025 Neutrophils/100 WBC (Bld) 72.3 % High 47-70 [facility] No Panel InformationOrdered By: ED PROVIDER on 07-06-2025 24 U/L <32 [facility] O.R. Fluoro for C-Les 10-0 -2024 O.R. Fluoro for C-Arm Normal [facility] Platelet countOrdered By: ED PROVIDER on 07-06-2025 Platelets (Bld) [#/Vol] 388 10*3/uL 150-450 [facility] Platelet estimateOrdered By: Edmund Tang on 07-06-2025 Platelets LM Ql (Bld) ADEQUATE ADEQ [facility] Potassium measurement (mass/ volume)Ordered By: ED PROVIDER on 07-06-2025 Potassium (Unsp spec) [Mass/Vol] 3.9 mmol/L 3.3-5.1 [facility] RBC Auto (Bld) [#/Vol]Ordere d By: ED PROVIDER on 07-06-2025 RBC (Bld) [#/Vol] 4.60 10*6/uL 4.2-5.4 [facility] Serum creatinine measurement (mass/volume)Ordered By: ED PROVIDER on 07-06-2025 Creatinine [Mass/Vol] 0.79 mg/dL 0.70-1.20 [facility] Serum globulin measurementOr dered By: ED PROVIDER on 07-06-2025 Globulin (S) [Mass/Vol] 3.8 g/dL 2.2-4.2 [facility] Serum glucose measurement (m ass/volume)Ordered By: ED PROVIDER on 07-06-2025 Glucose [Mass/Vol] 254 mg/dL High 70-99 [facility] Serum or plasma alanine pimentel otransferase (ALT) measurementOrdered By: ED PROVIDER on 07-06-2025 ALT [Catalytic activity/Vol] 10 U/L <35 [facility] Serum or plasma albumin esthela urement (mass/volume)Ordered By: ED PROVIDER on 07-06-2025 Albumin [Mass/Vol] 4.3 g/dL 3.4-4.8 [facility] Serum or plasma albumin/glob ulin mass ratioOrdered By: ED PROVIDER on 07-06-2025 Albumin/Globulin [Mass ratio] 1.1 {ratio} 0.9-2.4 [facility] Serum or plasma alkaline jose sphatase measurementOrdered By: ED PROVIDER on 07-06-2025 ALP [Catalytic activity/Vol] 151 U/L High 35-104 [facility] Serum or plasma calcium esthela urement (mass/volume)Ordered By: ED PROVIDER on 07-06-2025 Calcium [Mass/Vol] 9.0 mg/dL 7.6-11.0 [facility] Serum or plasma urea nitroge n measurement (mass/volume)Ordered By: ED PROVIDER on 07-06-2025 Urea nitrogen [Mass/Vol] 6 mg/dL 4-19 [facility] Sodium levelOrdered By: CARINA PEGUERO on 07-06-2025 Sodium [Moles/Vol] 132 mmol/L Low 133-145 [facility] Special Stain Group IIon Special Stain Group II Normal [facility] Comment on above: Performed By: #### P SSII ####[facility] [address], [address] Total proteinOrdered By: ED PROVIDER on 07-06-2025 Protein [Mass/Vol] 8.1 g/dL 5.9-8.4 [facility] White blood cell (WBC) count Ordered By: ED PROVIDER on 07-06-2025 WBC (Bld) [#/Vol] 18.4 10*3/uL High 4.4-11.0 [facility] MR/PAT.ANEon 07-04-2025 MR/PAT.ANE Normal [facility] NURSING PROGon 07-03-2025 NURSING PROG HNO ID: [id number] Author: JAELYN KOTHARI RN Service: ? Author Type: Registered Nurse Type: Nursing Progress Note Filed: 07/03/2025 16:18 Note Text: Attempted to reach the patient at the contact number that they provided [phone] (home) . Unable to speak with patient or leave a voicemail.The following information was sent to their my chart: Date of procedure, location and report time A message was left informing the patient/patient personal banking representative they must have a responsible adult [...] Number to call with questions or concerns [phone] Number to call to cancel their procedure [phone] Jaelyn Kothari RN Normal [facility] CNOVon 05-31-2025 CNOV Office Visit (INTMWS ) -------- GRACIE BANUELOS ([id number]) 1965 F Date Time Provider Department 05/31/25 10:40 AM SOILA EASTON During your visit today, we recorded the following information about you: Pulse Respiration Blood pressure Weight 78/minute 16/minute 128/80 56.2 kg Soila Easton APRN.PROPERTY DISPOSAL OFFICER 05/31/2025 1:42 PM Signed CC: Patient presents with: Recheck: 1 month follow up HPI Gracie Banuelos is a 60 year old female who presents today for follow up on chronic pancreatitis, COPD, and pain., Recording using Physitrack software for draft documentation of the visit was discussed with the patient/authorized personal banking representative; all questions welcomed and answered. Patient/authorized personal banking representative agreed to proceed Chronic Pancreatitis: - Gracie Banuelos was hospitalized in March for pancreatitis; stent placed, still in situ. - Followed by Dr. Segura at [facility]; stent removal planned for June. - Seen by Dr. Segura's PA, [place], with next appointment in June. - Hospitalized [...] 3 severe COPD by GOLD classification ([facility]) 2018 Tobacco use greater than 30 years [...] mouth d (more content not included)... Normal [facility] L3410.9992on 05-30-2025 [facility] Misc. COMMENT Normal . [facility] Comment on above: Order Comment: [id number] 0MED TOX UR RMT Result Comment: Test Ordered: [id number] E16-Bcanup+RP5Ezgjljmfgyfh Screen, Urine Negative ng/mL UI Reference Range: Tiibnb=698Zpxvaunilqw test includes Amphetamine and Methamphetamine.Barbiturates Negative ng/mL UI Reference Range: Kzdsmm=424Fodskwmmlrjdyix Negative ng/mL UI Reference Range: Atzrqd=512Jnukktn (Metab.), Urine Negative ng/mL UI Reference Range: Jxrind=484Tttazkh Negative ng/mL UI Reference Range: Rdlili=097Rbvgot test includes Codeine, Morphine, Hydromorphone, Hydrocodone.6-Acetylmorphine, Urine Negative ng/mL UI Reference Range: Cutoff=10Oxycodone/Oxymorphone, Urine Negative ng/mL UI Reference Range: Nmhjcl=405Gizv includes Oxycodone and OxymorphonePCP, Urine Negative ng/mL UI Reference Range: Cutoff=25Methadone Screen, Urine Negative ng/mL UI Reference Range: Mbrdjc=614Gkjtrxpakzkt, Urine Negative ng/mL UI Reference Range: Hrlrmo=867Wvkqslzy, Urine Negative ng/mL UI Reference Range: Cutoff=2.0Test includes Fentanyl and NorfentanylThis test was developed and its performance characteristicsdetermined by [facility]. It has not been cleared orapproved by the Food and Drug Administration.Tramadol Note: ng/mL UI See Final Results Reference Range: Uyrhwb=182Ywibwmcm Positive [A ] UI Reference Range: Yslech=292Nlbrwmyl Conf, MS, UR 713 ng/mL UI Reference Range: Skxqea=353Hvbtmbdqtcutg, Urine Negative ng/mL UI Reference Range: Cutoff=10Creatinine, Urine 26.4 mg/dL UI Reference Range: 20.0-300.0pH, Urine 7.3 UI Reference Range: 4.5-8.9Performed at: UI - [facility] [id number] [place], [place] [id number] Director: Garrett Harrell PhD, Phone: [phone] at: CB - [facility] [address] [id number] Director: Tj Mendoza PhD, Phone: [phone] Performed By: #### L 505.5000, L3410.9992 ####[facility] [address] [facility]. [place], [place], [id number] Amphetamine detection with 1 000 ng/mL as cutoffOrdered By: Sudhir Grijalva on 05-24-2025 Amphetamines Screen method >1000 ng/mL Ql (U) Negative < 200 ng/mL [facility] Emergency Department Summary on 05-24-2025 Emergency Department Summary Normal [facility] Lipid 1996 panelon Cholesterol [Mass/Vol] 179 mg/dL Normal <200 [facility] Comment on above: Order Comment: Speci men Type: BLOOD SPECIMEN Ordering Facility: [facility] Address: [address] [place] [address] Result Comment: <200 mg/dL, Desirable 200-239 mg/dL, Borderline high >239 mg/dL, High Performed By: #### 2 4331-1 #### [facility] CLIA [id number] [address] [place] [address] [place] [address] [place] Cholesterol in HDL [Mass/Vol] 51 mg/dL Normal >39 [facility] Comment on above: Order Comment: Speci men Type: BLOOD SPECIMEN Ordering Facility: [facility] Address: [address] [place] [address] Result Comment: 40-5 9 mg/dL, Acceptable >59 mg/dL, High: Negative risk factor for coronary heart disease <40 mg/dL, Low: Positive risk factor for coronary heart disease Performed By: #### 2 4331-1 #### [facility] CLIA [id number] [address] [place] [address] [place] Cholesterol in LDL [Mass/Vol] 97 mg/dL Normal <100 [facility] Comment on above: Order Comment: Speci men Type: BLOOD SPECIMEN Ordering Facility: [facility] Address: [address] [place] [address] Result Comment: <100 mg/dL, Optimal 100-129 mg/dL, Near optimal/above optimal 130-159 mg/dL, Borderline high 160-189 mg/dL, High >189 mg/dL, Very high Secondary prevention optimal LDL Cholesterol levels are recommended to be <70 mg/dL LDL cholesterol is calculated using the Pineda-NIH equation. Performed By: #### 2 4331-1 #### [facility] IA [id number] [address] [place] [address] [place] Cholesterol in LDL/Cholesterol in HDL [Mass ratio] 1.90 {ratio} Normal <2.54 [facility] Comment on above: Order Comment: Speci men Type: BLOOD SPECIMEN Ordering Facility: [facility] Address: [address] [place] [address] Result Comment: Teri regan: 1. National Cholesterol Education Program ATP III Guideline At-A-Glance Quick Desk Reference: National Heart, Lung, and Blood Felt. National Institutes of Health. 2001: NIH Publication No. 01-3305. 2. An International Atherosclerosis Society position paper: global recommendations for the management of dyslipidemia: executive summary, Atherosclerosis. 2014: 232(2):410-413. Performed By: #### 2 4331-1 #### [facility] IA [id number] [address] [place] [address] [place] Cholesterol in VLDL [Mass/Vol] 29 mg/dL Normal <30 [facility] Comment on above: Order Comment: Kettyi men Type: BLOOD SPECIMEN Ordering Facility: [facility] Address: [address] [place] [address] Performed By: #### 2 4331-1 #### [facility] CLIA [id number] [address] [place], [place] [id number] [place] Cholesterol non HDL [Mass/Vol] 128 mg/dL Normal <130 [facility] Comment on above: Order Comment: Speci men Type: BLOOD SPECIMEN Ordering Facility: [facility] Address: [address] [place] [address] Result Comment: <130 mg/dL, Optimal 130-159 mg/dL, Near optimal/above optimal 160-189 mg/dL, Borderline high 190-219 mg/dL, High >219 mg/dL, Very high Secondary prevention optimal non HDL Cholesterol levels are recommended to be <100 mg/dL Performed By: #### 2 4331-1 #### [facility] CLIA [id number] [address] [place] [address] [place] Cholesterol.total/Chol esterol in HDL [Mass ratio] 3.51 {ratio} Normal <5.10 [facility] Comment on above: Order Comment: Speci men Type: BLOOD SPECIMEN Ordering Facility: [facility] Address: [address] [place] [address] Performed By: #### 2 4331-1 #### [facility] CLIA [id number] [address] [place] [address] [place] FASTING TIME 12 hrs Normal [facility] Comment on above: Order Comment: Speci men Type: BLOOD SPECIMEN Ordering Facility: [facility] Address: [address] [place] [address] Performed By: #### 2 4331-1 #### [facility] CLIA [id number] [address] [place] [address] [place] Triglyceride [Mass/Vol] 178 mg/dL High <150 [facility] Comment on above: Order Comment: Speci men Type: BLOOD SPECIMEN Ordering Facility: [facility] Address: [address] [place], [place] [address] Result Comment: <150 mg/dL, Normal 150-199 mg/dL, Borderline high 200-499 mg/dL, High >499 mg/dL, Very high Performed By: #### 2 4331-1 #### [facility] CLIA [id number] [address] [place] [address] [place] No Panel InformationOrdered By: Sudhir Grijalva on 05-24-2025 Negative < 200 ng/mL [facility] Pulmonary Visit Reporton Pulmonary Visit Report Normal [facility] Screening urine fentanyl samir surementOrdered By: Sudhir Grijalva on 05-24-2025 fentaNYL Screen Ql (U) Negative <5 ng/mL [facility] Urine Drug Screen (VISTA)on 05-24-2025 AMPHETAMINES Negative Normal <1000 ng/mL [facility] Comment on above: Order Comment: UNK Performed By: #### L 505.5000, L3410.9992 ####[facility] [address] [facility] [address] BARBITIURATES Negative Normal < 200 ng/mL [facility] Comment on above: Order Comment: UNK Performed By: #### L 505.5000, L3410.9992 ####[facility] [address] [place], [address] BENZODIAZIPINE Positive Normal < 200 ng/mL [facility] Comment on above: Order Comment: UNK Result Comment: If c onfirmation testing is needed, a separate order will berequired to send out testing to the reference laboratory. Performed By: #### L 505.5000, L3410.9992 ####[facility] [address] [place], [address] BUP Ur Drug Scr Negative Normal < 200 ng/mL [facility] Comment on above: Order Comment: UNK Performed By: #### L 505.5000, L3410.9992 ####[facility] [address] [place], [address] COCAINE Negative Normal < 300 ng/mL [facility] Comment on above: Order Comment: UNK Performed By: #### L 505.5000, L3410.9992 ####[facility] [address] [place] [id number] Fentanyl Negative Normal <5 ng/mL [facility] Comment on above: Order Comment: UNK [...] UTCA Performed By: #### L 505.5000, L3410.9992 ####[facility] [address] [place] [address] METHADONE Negative Normal < 300 ng/mL [facility] Comment on above: Order Comment: UNK Performed By: #### L 505.5000, L3410.9992 ####[facility] [address] [place] [id number] OPIATES Negative Normal < 300 ng/mL [facility] Comment on above: Order Comment: UNK Performed By: #### L 505.5000, L3410.9992 ####[facility] [address] [place] [address] OXYCODONE Negative Normal < 100 ng/mL [facility] Comment on above: Order Comment: UNK Performed By: #### L 505.5000, L3410.9992 ####[facility] [address] [place] [id number] PCP Negative Normal < 25 ng/mL [facility] Comment on above: Order Comment: UNK Performed By: #### L 505.5000, L3410.9992 ####[facility] [address] [place], [address] THC Negative Normal < 50 ng/mL [facility] Comment on above: Order Comment: UNK Performed By: #### L 505.5000, L3410.9992 ####[facility] [address] [place], [address] Urine phencyclidine (PCP) de tectionOrdered By: Sudhir Grijalva on 05-24-2025 Phencyclidine Ql (U) Negative < 25 ng/mL [facility] US ARM ARTERIAL UNL VAS LABo n 05-18-2025 US ARM ARTERIAL UNL VAS LAB Non-Invasive Vascular Laboratory [facility] Upper Extremity Arterial Duplex Bilateral/Complete Date [...] waveform noted throughout. Technologist: Keerthi Shah RVT, [facility] Ordering physician: MISBAH ELKINS Interpreting physician: GLADIS Byrne DO Final CC [facility] Image : [id number] ID See Link below for Image Normal [facility] US CAROTID ARTERIES LUZMA VAS LABon 05-18-2025 US CAROTID ARTERIES LUZMA VAS LAB Non-Invasive Vascular Laboratory [facility] Carotid Duplex Bilateral/Complete Date of service/time: [...] more proximal stenosis. Technologist: Keerthi Shah RVT, [facility] Ordering physician: MISBAH ELKINS Interpreting physician: GLADIS Byrne DO Final CC [facility] Image : [id number] ID See Link below for Image Normal [facility] Abdomen/Pelvis W IV Cont ONL Yon 05-10-2025 Abdomen/Pelvis W IV Cont ONLY Normal [facility] Absolute lymphocyte countOrd ered By: Joannerodrigue Kelly on 05-10-2025 Lymphocytes Auto (Unsp spec) [#/Vol] 3.42 10*3/uL 0.83-4.51 [facility] Anion gap in Serum or Plasma Ordered By: Joanne Kelly on 05-10-2025 Anion gap [Moles/Vol] 12 mmol/L 5-15 [facility] Automated lymphocyte count a s percentage of total leukocytesOrdered By: Joanne Kelly on 05-10-2025 Lymphocytes/100 WBC Auto (Unsp spec) 21.2 % 19-41 [facility] BUN/creatinine ratioOrdered By: Joanne Kelly on 05-10-2025 Urea nitrogen/Creatinine [Mass ratio] 6.7 mg/mg Low 10-20 [facility] Basophil percentageOrdered B y: Joanne Kelly on 05-10-2025 Basophils/100 WBC (Bld) 1.0 % 0-1 [facility] Bilirubin, totalOrdered By: Joanne Kelly on 05-10-2025 Bilirubin [Mass/Vol] mg/dL 0.00-1.30 [facility] Blood manual differential co mment interpretation (narrative result)Ordered By: Joanne Kelly on 05-10-2025 Manual differential comment Geovany (Bld) [Interp] SCANNED [facility] CBC + diff autoon 05-10-2025 CBC W Auto Differential panel (Bld) [facility] CBC W/Diff, Automatedon 04-28 SMEAR COMMENT SCANNED Normal [facility] Comment on above: Performed By: #### L 100.0100 ####[facility] [address] [place], [address] Absolute Neut Normal 2.0-7.7 [facility] Comment on above: Result Comment: DUP Performed By: #### L 500.4050, L100.0100 ####[facility] [address] [place], [address] HCT Normal 37-47 [facility] Comment on above: Result Comment: DUP Performed By: #### L 500.4050, L100.0100 ####[facility] [address] [place], [address] HGB Normal 12.0-15.0 [facility] Comment on above: Result Comment: DUP Performed By: #### L 500.4050, L100.0100 ####[facility] [address] [place], [address] MCH Normal 27.0-32.0 [facility] Comment on above: Result Comment: DUP Performed By: #### L 500.4050, L100.0100 ####[facility] [address] [place], [address] MCHC Normal 32-36 [facility] Comment on above: Result Comment: DUP Performed By: #### L 500.4050, L100.0100 ####[facility] [address] [place], [address] MCV Normal 81-99 [facility] Comment on above: Result Comment: DUP Performed By: #### L 500.4050, L100.0100 ####[facility] [address] [place], [address] NEUT% Normal 47-70 [facility] Comment on above: Result Comment: DUP Performed By: #### L 500.4050, L100.0100 ####[facility] [address] [place], [address] PLT Normal 150-450 [facility] Comment on above: Result Comment: DUP Performed By: #### L 500.4050, L100.0100 ####[facility] [address] [place], [address] RBC Normal 4.2-5.4 [facility] Comment on above: Result Comment: DUP Performed By: #### L 500.4050, L100.0100 ####[facility] [address] [place], [address] RDW CV Normal 11.6-14.6 [facility] Comment on above: Result Comment: DUP Performed By: #### L 500.4050, L100.0100 ####[facility] [address] [place], [address] RDW SD Normal 35.1-43.9 [facility] Comment on above: Result Comment: DUP Performed By: #### L 500.4050, L100.0100 ####[facility] [address] [place], [address] WBC Normal 4.4-11.0 [facility] Comment on above: Result Comment: DUP Performed By: #### L 500.4050, L100.0100 ####[facility] [address] [place], [address] Absolute Neut Normal 2.0-7.7 [facility] Comment on above: Result Comment: This specimen has been REJECTED due to Laboratory criteria:Clotted.SCOTTY WAGONER has been notified of need of recollection.05/10/252118 Tamara Reg Performed By: #### L 100.0100, L500.4050, L501.2450 ####[facility] [address] [place], [address] HCT Normal 37-47 [facility] Comment on above: Result Comment: This specimen has been REJECTED due to Laboratory criteria:Clotted.SCOTTY WAGONER has been notified of need of recollection.05/10/252118 Tamara Reg Performed By: #### L 100.0100, L500.4050, L501.2450 ####[facility] [address] [place], [address] HGB Normal 12.0-15.0 [facility] Comment on above: Result Comment: This specimen has been REJECTED due to Laboratory criteria:Clotted.SCOTTY WAGONER has been notified of need of recollection.05/10/252118 Tamara Reg Performed By: #### L 100.0100, L500.4050, L501.2450 ####[facility] [address] [place], [address] MCH Normal 27.0-32.0 [facility] Comment on above: Result Comment: This specimen has been REJECTED due to Laboratory criteria:Clotted.SCOTTY CIARAN has been notified of need of recollection.05/10/252118 Tamara Reg Performed By: #### L 100.0100, L500.4050, L501.2450 ####[facility] [address] [place], [address] MCHC Normal 32-36 [facility] Comment on above: Result Comment: This specimen has been REJECTED due to Laboratory criteria:Clotted.SCOTTY WAGONER has been notified of need of recollection.05/10/252118 Tamara Reg Performed By: #### L 100.0100, L500.4050, L501.2450 ####[facility] [address] [place], [address] MCV Normal 81-99 [facility] Comment on above: Result Comment: This specimen has been REJECTED due to Laboratory criteria:Clotted.SCOTTY CIARAN has been notified of need of recollection.05/10/252118 Tamara Reg Performed By: #### L 100.0100, L500.4050, L501.2450 ####[facility] [address] [place], [address] NEUT% Normal 47-70 [facility] Comment on above: Result Comment: This specimen has been REJECTED due to Laboratory criteria:Clotted.SCOTTY CIARAN has been notified of need of recollection.05/10/252118 Tamara Reg Performed By: #### L 100.0100, L500.4050, L501.2450 ####[facility] [address] [place], [address] PLT Normal 150-450 [facility] Comment on above: Result Comment: This specimen has been REJECTED due to Laboratory criteria:Clotted.SCOTTY WAGONER has been notified of need of recollection.05/10/252118 Tamara Reg Performed By: #### L 100.0100, L500.4050, L501.2450 ####[facility] [address] [place], [address] RBC Normal 4.2-5.4 [facility] Comment on above: Result Comment: This specimen has been REJECTED due to Laboratory criteria:Clotted.SCOTTY WAGONER has been notified of need of recollection.05/10/252118 Tamara Reg Performed By: #### L 100.0100, L500.4050, L501.2450 ####[facility] [address] [place], [address] RDW CV Normal 11.6-14.6 [facility] Comment on above: Result Comment: This specimen has been REJECTED due to Laboratory criteria:Clotted.SCOTTY WAGONER has been notified of need of recollection.05/10/252118 Tamara Reg Performed By: #### L 100.0100, L500.4050, L501.2450 ####[facility] [address] [place], [address] RDW SD Normal 35.1-43.9 [facility] Comment on above: Result Comment: This specimen has been REJECTED due to Laboratory criteria:Clotted.SCOTTY WAGONER has been notified of need of recollection.05/10/252118 Tamara Reg Performed By: #### L 100.0100, L500.4050, L501.2450 ####[facility] [address] [place], [address] WBC Normal 4.4-11.0 [facility] Comment on above: Result Comment: This specimen has been REJECTED due to Laboratory criteria:Clotted.SCOTTY WAGONER has been notified of need of recollection.05/10/252118 Tamara Reg Performed By: #### L 100.0100, L500.4050, L501.2450 ####[facility] [address] [place], [address] Carbon dioxide, total [Moles /volume] in Central venous bloodOrdered By: Joanne Kelly on 05-10-2025 CO2 [Moles/Vol] 28.4 mmol/L 21.0-32.0 [facility] Chloride assayOrdered By: Jamari Kelly on 05-10-2025 Chloride [Moles/Vol] 98 mmol/L 98-108 [facility] Comprehensive Metabolic Prof ilon 05-10-2025 Albumin [Mass/Vol] 3.9 g/dL Normal 3.4-4.8 [facility] Comment on above: Performed By: #### L 100.0100, L500.4050, L501.2450 ####[facility] [address] [place], [address] Albumin/Globulin [Mass ratio] 1.1 {ratio} Normal 0.9-2.4 [facility] Comment on above: Performed By: #### L 100.0100, L500.4050, L501.2450 ####[facility] [address] [place], [address] ALK PHOS 121 U/L High 35-104 [facility] Comment on above: Performed By: #### L 100.0100, L500.4050, L501.2450 ####[facility] [address] [place], [address] ALT [Catalytic activity/Vol] U/L Normal <=34 [facility] Comment on above: Performed By: #### L 100.0100, L500.4050, L501.2450 ####[facility] [address] [place], [address] AST [Catalytic activity/Vol] 16 U/L Normal <=31 [facility] Comment on above: Result Comment: Hemo lysis present, Results??could be affected.?? Performed By: #### L 100.0100, L500.4050, L501.2450 ####[facility] [address] [place], [address] BUN/CRE 6.7 RATIO Low 10-20 [facility] Comment on above: Performed By: #### L 100.0100, L500.4050, L501.2450 ####[facility] [address] [place], [address] Calcium [Mass/Vol] 9.5 mg/dL Normal 7.6-11.0 [facility] Comment on above: Performed By: #### L 100.0100, L500.4050, L501.2450 ####[facility] [address] [place], [address] Chloride [Moles/Vol] 98 mmol/L Normal 98-108 [facility] Comment on above: Performed By: #### L 100.0100, L500.4050, L501.2450 ####[facility] [address] [place], [address] CO2 [Moles/Vol] 28.4 mmol/L Normal 21.0-32.0 [facility] Comment on above: Performed By: #### L 100.0100, L500.4050, L501.2450 ####[facility] [address] [place], [address] Creatinine [Mass/Vol] 0.67 mg/dL Low 0.70-1.20 [facility] Comment on above: Performed By: #### L 100.0100, L500.4050, L501.2450 ####[facility] [address] [place], [address] ECRCL 72.02 ml/min Normal 50-250 [facility] Comment on above: Performed By: #### L 100.0100, L500.4050, L501.2450 ####[facility] [address] [place], [address] GAP 12 Normal 5-15 [facility] Comment on above: Performed By: #### L 100.0100, L500.4050, L501.2450 ####[facility] [address] [place], [address] GFR/1.73 sq M.predicted among non-blacks MDRD (S/P/Bld) [Vol rate/Area] 99 mL/min/{1.73_m2} Normal >60 [facility] Comment on above: Result Comment: mL/m in/1.73m2 CKD-EPI Creatinine Equation (2020) Performed By: #### L 100.0100, L500.4050, L501.2450 ####[facility] [address] [place], [address] Globulin (S) [Mass/Vol] 3.5 g/dL Normal 2.2-4.2 [facility] Comment on above: Performed By: #### L 100.0100, L500.4050, L501.2450 ####[facility] [address] [place], [address] Glucose [Mass/Vol] 114 mg/dL High 70-99 [facility] Comment on above: Performed By: #### L 100.0100, L500.4050, L501.2450 ####[facility] [address] [place], [address] Potassium [Moles/Vol] 4.4 mmol/L Normal 3.3-5.1 [facility] Comment on above: Result Comment: Hemo lysis present, Results??could be affected.?? Performed By: #### L 100.0100, L500.4050, L501.2450 ####[facility] [address] [place], [address] Sodium [Moles/Vol] 138 mmol/L Normal 133-145 [facility] Comment on above: Performed By: #### L 100.0100, L500.4050, L501.2450 ####[facility] [address] [place], [address] T BILI < 0.15 Normal 0.00-1.30 [facility] Comment on above: Performed By: #### L 100.0100, L500.4050, L501.2450 ####[facility] [address] [place], [address] T PROT 7.4 g/dL Normal 5.9-8.4 [facility] Comment on above: Performed By: #### L 100.0100, L500.4050, L501.2450 ####[facility] [address] [place], [address] Urea nitrogen [Mass/Vol] 4 mg/dL Normal 4-19 [facility] Comment on above: Performed By: #### L 100.0100, L500.4050, L501.2450 ####[facility] [address] [place], [address] ALB Normal 3.4-4.8 [facility] Comment on above: Result Comment: DUP Performed By: #### L 500.4050, L100.0100 ####[facility] [address] [place], [address] ALK PHOS Normal 35-104 [facility] Comment on above: Result Comment: DUP Performed By: #### L 500.4050, L100.0100 ####[facility] [address] [place], [address] ALT Normal <=34 [facility] Comment on above: Result Comment: DUP Performed By: #### L 500.4050, L100.0100 ####[facility] [address] [place], [address] AST Normal <=31 [facility] Comment on above: Result Comment: DUP Performed By: #### L 500.4050, L100.0100 ####[facility] [address] [place], [address] BUN Normal 4-19 [facility] Comment on above: Result Comment: DUP Performed By: #### L 500.4050, L100.0100 ####[facility] [address] [place], [address] BUN/CRE Normal 10-20 [facility] Comment on above: Result Comment: DUP Performed By: #### L 500.4050, L100.0100 ####[facility] [address] [place], [address] Calcium Normal 7.6-11.0 [facility] Comment on above: Result Comment: DUP Performed By: #### L 500.4050, L100.0100 ####[facility] [address] [place], [address] CL Normal 98-108 [facility] Comment on above: Result Comment: DUP Performed By: #### L 500.4050, L100.0100 ####[facility] [address] [place], [address] CO2 Normal 21.0-32.0 [facility] Comment on above: Result Comment: DUP Performed By: #### L 500.4050, L100.0100 ####[facility] [address] [place], [address] CREAT,SERUM Normal 0.70-1.20 [facility] Comment on above: Result Comment: DUP Performed By: #### L 500.4050, L100.0100 ####[facility] [address] [place], [address] eGFR Normal >60 [facility] Comment on above: Result Comment: DUP Performed By: #### L 500.4050, L100.0100 ####[facility] [address] [place], [address] GAP Normal 5-15 [facility] Comment on above: Result Comment: DUP Performed By: #### L 500.4050, L100.0100 ####[facility] [address] [place], [address] GLU Normal 70-99 [facility] Comment on above: Result Comment: DUP Performed By: #### L 500.4050, L100.0100 ####[facility] [address] [place], [address] Potassium Normal 3.3-5.1 [facility] Comment on above: Result Comment: DUP Performed By: #### L 500.4050, L100.0100 ####[facility] [address] [place], [address] T BILI Normal 0.00-1.30 [facility] Comment on above: Result Comment: DUP Performed By: #### L 500.4050, L100.0100 ####[facility] [address] [place], [address] T PROT Normal 5.9-8.4 [facility] Comment on above: Result Comment: DUP Performed By: #### L 500.4050, L100.0100 ####[facility] [address] [place], [address] Comprehensive Metabolic Profil Normal 133-145 [facility] Comment on above: Result Comment: DUP Performed By: #### L 500.4050, L100.0100 ####[facility] [address] [place], [address] Emergency Department Summary on 05-10-2025 Emergency Department Summary Normal [facility] Eosinophil percentageOrdered By: Joanne Robin on 05-10-2025 Eosinophils/100 WBC (Bld) 5.1 % High 0-5 [facility] Erythrocyte distribution wid th ratioOrdered By: Joanne Kelly on 05-10-2025 Erythrocyte distribution width (RBC) [Ratio] 14.6 % 11.6-14.6 [facility] Erythrocyte distribution wid th standard deviationOrdered By: Joannerodrigue Kelly on 05-10-2025 Erythrocyte distribution width (RBC) [Ratio] 46.5 fl High 35.1-43.9 [facility] Glomerular filtration rate ( GFR) estimation/1.73 sq m using serum, plasma, or whole bOrdered By: Joanne Kelly on 05-10-2025 GFR/1.73 sq M.predicted among non-blacks MDRD (S/P/Bld) [Vol rate/Area] 99 mL/min/{1.73_m2} >60 [facility] Hematocrit Auto (Bld) [Volum e fraction]Ordered By: Joanne Kelly on 05-10-2025 Hematocrit (Bld) [Volume fraction] 37.0 % 37-47 [facility] Hemoglobin measurementOrdere d By: Joannerodrigue Kelly on 05-10-2025 Hemoglobin (Bld) [Mass/Vol] 11.4 g/dL Low 12.0-15.0 [facility] Immature granulocytes/100 WB C Auto (Bld)Ordered By: Joanne Kelly on 05-10-2025 Immature granulocytes/100 WBC (Bld) 0.700 % 0.0-0.9 [facility] Lipaseon 05-10-2025 Lipase [Catalytic activity/Vol] 459 U/L High 13-75 [facility] Comment on above: Result Comment: Jenny capellan note:LIPASE revised reference range effective 23.New Lipase methodology. Expected to produce lower valuesthan the previous assay method.NEW Reference Range: 13 - 75 U/L Performed By: #### L 100.0100, L500.4050, L501.2450 ####[facility] [address] [place], [address] MCV (mean corpuscular volume ) determinationOrdered By: Joanne Kelly on 05-10-2025 MCV (RBC) [Entitic vol] 86.7 fL 81-99 [facility] Mean corpuscular hemoglobin (MCH) determinationOrdered By: Joanne Kelly on 05-10-2025 MCH (RBC) [Entitic mass] 26.7 pg Low 27.0-32.0 [facility] Monocyte percentageOrdered B y: Joanne Kelly on 05-10-2025 Monocytes/100 WBC (Bld) 8.2 % 0-10 [facility] Neutrophil percentageOrdered By: Joanne Kelly on 05-10-2025 Neutrophils/100 WBC (Bld) 63.8 % 47-70 [facility] No Panel InformationOrdered By: Joanne Kelly on 05-10-2025 16 U/L <32 [facility] Platelet countOrdered By: Jamari Kelly on 05-10-2025 Platelets (Bld) [#/Vol] 305 10*3/uL 150-450 [facility] Potassium measurement (mass/ volume)Ordered By: Joanne Kelly on 05-10-2025 Potassium (Unsp spec) [Mass/Vol] 4.4 mmol/L 3.3-5.1 [facility] RBC Auto (Bld) [#/Vol]Ordere d By: Joanne Kelly on 05-10-2025 RBC (Bld) [#/Vol] 4.27 10*6/uL 4.2-5.4 [facility] Serum creatinine measurement (mass/volume)Ordered By: Joanne Kelly on 05-10-2025 Creatinine [Mass/Vol] 0.67 mg/dL Low 0.70-1.20 [facility] Serum globulin measurementOr dered By: Joanne Kelly on 05-10-2025 Globulin (S) [Mass/Vol] 3.5 g/dL 2.2-4.2 [facility] Serum glucose measurement (m ass/volume)Ordered By: Joanne Kelly on 05-10-2025 Glucose [Mass/Vol] 114 mg/dL High 70-99 [facility] Serum or plasma alanine pimentel otransferase (ALT) measurementOrdered By: Joanne Kelly on 05-10-2025 ALT [Catalytic activity/Vol] U/L <35 [facility] Serum or plasma albumin esthela urement (mass/volume)Ordered By: Joannerodrigue Kelly on 05-10-2025 Albumin [Mass/Vol] 3.9 g/dL 3.4-4.8 [facility] Serum or plasma albumin/glob ulin mass ratioOrdered By: Joannerodrigue Kelly on 05-10-2025 Albumin/Globulin [Mass ratio] 1.1 {ratio} 0.9-2.4 [facility] Serum or plasma alkaline jose sphatase measurementOrdered By: Joanne Kelly on 05-10-2025 ALP [Catalytic activity/Vol] 121 U/L High 35-104 [facility] Serum or plasma calcium esthela urement (mass/volume)Ordered By: Joanne Kelly on 05-10-2025 Calcium [Mass/Vol] 9.5 mg/dL 7.6-11.0 [facility] Serum or plasma urea nitroge n measurement (mass/volume)Ordered By: Joanne Kelly on 05-10-2025 Urea nitrogen [Mass/Vol] 4 mg/dL 4-19 [facility] Sodium levelOrdered By: Mahamed a Robin on 05-10-2025 Sodium [Moles/Vol] 138 mmol/L 133-145 [facility] Total proteinOrdered By: Brittnee ca Robin on 05-10-2025 Protein [Mass/Vol] 7.4 g/dL 5.9-8.4 [facility] White blood cell (WBC) count Ordered By: Joannerodrigue Kelly on 05-10-2025 WBC (Bld) [#/Vol] 16.2 10*3/uL High 4.4-11.0 [facility] M7400.3302on 05-05-2025 M7400.3302 Normal [facility] Comment on above: Performed By: #### M 600.5000, L7000.0700, M7400.3302 ####[facility] [address] [place], [address] Ova and Parasites 8623on OP Normal [facility] Comment on above: Performed By: #### M 600.5000, L7000.0700, M7400.3302 ####[facility] [address] [place], [place], [id number] Calprotectin, Stoolon [address] 20 ug/g Normal 0-120 [facility] Comment on above: Result Comment: Conc entration Interpretation Follow-Up< 5 - 50 ug/g Normal None>50 -120 ug/g Borderline Re-evaluate in 4-6 weeks >120 ug/g Abnormal Repeat as clinically indicatedPerformed at: [email or web address] [address] [id number] Director: Marvin Quintanilla MD, Phone: [phone] Performed By: #### M 600.5000, L7000.0700, M3900.5062 ####[facility] [address] [place], [place], [id number] L7000.0750on 05-01-2025 P ELASTASE,FECA 462 Normal >200 [facility] Comment on above: Result Comment: Resu lt Units: ug Elast./g Severe Pancreatic Insufficiency: <100 Moderate Pancreatic Insufficiency: 100 - 200 Normal: >200Performed at: [facility] [id number] Director: Marvin Quintanilla MD, Phone: [phone] Performed By: #### M 1006796, M100.637, L7000.0750 ####[facility] [address] [place], [place], [id number] CDIFF (PCR)on 04-27-2025 CDIFF Pending 027 027 NAP1-B1 Presumptive Negative *for epidemiolologic???use C. Diff PCR Negative- No toxigenic C. Diff Detected Normal [facility] Comment on above: Performed By: #### M 1006796, M100.637, L7000.0750 ####[facility] [address] [place], [place], [id number] Calprotectin stoolOrdered By : Gabby Martinez on 04-27-2025 Calprotectin stool 20 ug/g 0-120 [facility] Clostridium difficile detect ion by polymerase chain reactionOrdered By: Gabby Martinez on 04-27-2025 C. difficile DNA KANDY+probe Ql (Unsp spec) [facility] ENTERIC PATHOGEN PANEL STOOL on 04-27-2025 EP PANEL CAMPYLOBACTER Not Detected Norovirus Not Detected Rotavirus Not Detected Salmonella Not Detected Shiga Toxin Not Detected Shigella sp. Not Detected VIBRIO Not Detected Yersinia Not Detected Normal [facility] Comment on above: Performed By: #### M 100.6796, M100.637, L7000.0750 ####[facility] [address] [place], [place], [address] Stool pancreatic elastase me asurement (mass/mass)Ordered By: Gabby Martinez on 04-27-2025 Elastase.pancreatic (Stl) [Mass/Mass] 462 >200 [facility] Abdomen Single Viewon 2024 Abdomen Single View Normal [facility] Gastroenterology Visit Repor ton 04-26-2025 Gastroenterology Visit Report Normal [facility] Lipaseon 04-26-2025 Lipase [Catalytic activity/Vol] 353 U/L High 13-75 [facility] Comment on above: Result Comment: Jenny capellan note:LIPASE revised reference range effective 23.New Lipase methodology. Expected to produce lower valuesthan the previous assay method.NEW Reference Range: 13 - 75 U/L Performed By: #### L 501.2450 ####[facility] [address] [place], [place], [address] CNOVon 04-25-2025 CNOV Office Visit (INTMWS ) -------- GRACIE BANUELOS ([id number]) 1965 F Date Time Provider Department 04/25/25 [...] on 04/16/2025 and discharged on 04/19/2025, at [facility], following an episode of acute pancreatitis. She [...] placement and removal of multiple stones at [facility] in [place] on 03/10/2025. During her recent hospitalization, a [...] chronic pancreatitis and pancreatic stent placement at [facility] on 03/10/2025. She reports ongoing pain [...] pain management. She is also taking an fdgg-eyt-mbopqfq medication called Ease to manage constipation associated with opioid use. Gracie expresses concern about her blood pressure readings, which she reports are high in one arm and low in the other. She was told by her doctors that she might have a blood clot and is requesting a referral to a sub acute care nurse for further evaluation. 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 Normal [facility] CNPNon 04-25-2025 CNPN Telephone (INTMWS) -------- GRACIE BANUELOS ([id number]) 1965 F Date Time Provider Department 04/25/25 [...] cyst, righ (more content not included)... Normal [facility] 04-20-2025 CNPN Telephone (INTMWS) -------- GRACIE BANUELOS ([id number]) 1965 F Date Time Provider Department 04/20/25 MISBAH ELKINS INTMWS During your visit today, we recorded the following information about you: Kiana Christy 04/20/2025 8:59 AM Signed Patient calling in to let office know she was just discharged from [facility]. She made an appt to see on [...] Staff do you see anything or does [facility] Er not have connection to oarrrs? Regards, [...] 11/16/2013 Uri (more content not included)... Normal [facility] Absolute lymphocyte countOrd ered By: Sudhir Izquierdo on 04-19-2025 Lymphocytes Auto (Unsp spec) [#/Vol] 2.49 10*3/uL 0.83-4.51 [facility] Automated lymphocyte count a s percentage of total leukocytesOrdered By: Sudhir Izquierdo on 04-19-2025 Lymphocytes/100 WBC Auto (Unsp spec) 24.2 % 19-41 [facility] Basophil percentageOrdered B y: Sudhir Izquierdo on 04-19-2025 Basophils/100 WBC (Bld) 0.7 % 0-1 [facility] CBC W/Diff, Automatedon 03-29 Absolute Lymph 2.49 X10 3/uL Normal 0.83-4.51 [facility] Comment on above: Performed By: #### L 100.0100 ####[facility] [address] [place], [address] Absolute Neut 5.6 X10 3/uL Normal 2.0-7.7 [facility] Comment on above: Performed By: #### L 100.0100 ####[facility] [address] [place], [address] Basophils/100 WBC (Bld) 0.7 % Normal 0-1 [facility] Comment on above: Performed By: #### L 100.0100 ####[facility] [address] [place], [address] Eosinophils/100 WBC (Bld) 12.2 % High 0-5 [facility] Comment on above: Performed By: #### L 100.0100 ####[facility] [address] [place], [address] Erythrocyte distribution width (RBC) [Ratio] 14.5 % Normal 11.6-14.6 [facility] Comment on above: Performed By: #### L 100.0100 ####[facility] [address] [place], [address] Hematocrit (Bld) [Volume fraction] 28.0 % Low 37-47 [facility] Comment on above: Performed By: #### L 100.0100 ####[facility] [address] [place], [address] Hemoglobin (Bld) [Mass/Vol] 8.8 g/dL Low 12.0-15.0 [facility] Comment on above: Performed By: #### L 100.0100 ####[facility] [address] [place], [address] IG% 1.100 High 0.0-0.9 [facility] Comment on above: Result Comment: IG% - Immature Granulocytes (promyelocytes, myelocytes andmetamyelocytes) > 1% indicates that a LEFT SHIFT is Present. Performed By: #### L 100.0100 ####[facility] [address] [place], [address] Lymphocytes/100 WBC (Bld) 24.2 % Normal 19-41 [facility] Comment on above: Performed By: #### L 100.0100 ####[facility] [address] [place], [address] MCH (RBC) [Entitic mass] 26.4 pg Low 27.0-32.0 [facility] Comment on above: Performed By: #### L 100.0100 ####[facility] [address] [place], [address] MCHC (RBC) [Mass/Vol] 31.4 g/dL Low 32-36 [facility] Comment on above: Performed By: #### L 100.0100 ####[facility] [address] [place], [address] MCV (RBC) [Entitic vol] 84.1 fL Normal 81-99 [facility] Comment on above: Performed By: #### L 100.0100 ####[facility] [address] [place], [address] Monocytes/100 WBC (Bld) 7.2 % Normal 0-10 [facility] Comment on above: Performed By: #### L 100.0100 ####[facility] [address] [place], [address] Neutrophils/100 WBC (Bld) 54.6 % Normal 47-70 [facility] Comment on above: Performed By: #### L 100.0100 ####[facility] [address] [place], [address] Nucleated RBC (Bld) [#/Vol] 0 10*3/uL Normal 0-5 [facility] Comment on above: Performed By: #### L 100.0100 ####[facility] [address] [place], [address] Platelet mean volume (Bld) [Entitic vol] 9.6 fL Normal 6.2-12.0 [facility] Comment on above: Performed By: #### L 100.0100 ####[facility] [address] [place], [address] Platelets (Bld) [#/Vol] 330 10*3/uL Normal 150-450 [facility] Comment on above: Performed By: #### L 100.0100 ####[facility] [address] [place], [address] RBC (Bld) [#/Vol] 3.33 10*6/uL Low 4.2-5.4 [facility] Comment on above: Performed By: #### L 100.0100 ####[facility] [address] [place], [address] RDW SD 44.5 fl High 35.1-43.9 [facility] Comment on above: Performed By: #### L 100.0100 ####[facility] [address] [place], [address] WBC (Bld) [#/Vol] 10.3 10*3/uL Normal 4.4-11.0 [facility] Comment on above: Performed By: #### L 100.0100 ####[facility] [address] [place], [address] Discharge Instructionon 03-29 Discharge Instruction Normal [facility] Eosinophil percentageOrdered By: Sudhir Izquierdo on 04-19-2025 Eosinophils/100 WBC (Bld) 12.2 % High 0-5 [facility] Erythrocyte distribution wid th ratioOrdered By: Sudhir Izquierdo on 04-19-2025 Erythrocyte distribution width (RBC) [Ratio] 14.5 % 11.6-14.6 [facility] Erythrocyte distribution wid th standard deviationOrdered By: Sudhir Izquierdo on 04-19-2025 Erythrocyte distribution width (RBC) [Ratio] 44.5 fl High 35.1-43.9 [facility] Hematocrit Auto (Bld) [Volum e fraction]Ordered By: Sudhir Izquierdo on 04-19-2025 Hematocrit (Bld) [Volume fraction] 28.0 % Low 37-47 [facility] Hemoglobin measurementOrdere d By: Sudhir Izquierdo on 04-19-2025 Hemoglobin (Bld) [Mass/Vol] 8.8 g/dL Low 12.0-15.0 [facility] Immature granulocytes/100 WB C Auto (Bld)Ordered By: Sudhir Izquierdo on 04-19-2025 Immature granulocytes/100 WBC (Bld) 1.100 % High 0.0-0.9 [facility] MCV (mean corpuscular volume ) determinationOrdered By: Sudhir Izquierdo on 04-19-2025 MCV (RBC) [Entitic vol] 84.1 fL 81-99 [facility] Mean corpuscular hemoglobin (MCH) determinationOrdered By: Sudhir Izquierdo on 04-19-2025 MCH (RBC) [Entitic mass] 26.4 pg Low 27.0-32.0 [facility] Monocyte percentageOrdered B y: Sudhir Izquierdo on 04-19-2025 Monocytes/100 WBC (Bld) 7.2 % 0-10 [facility] Neutrophil percentageOrdered By: Sudhir Izquierdo on 04-19-2025 Neutrophils/100 WBC (Bld) 54.6 % 47-70 [facility] Platelet countOrdered By: Rosana Izquierdo on 04-19-2025 Platelets (Bld) [#/Vol] 330 10*3/uL 150-450 [facility] RBC Auto (Bld) [#/Vol]Ordere d By: Sudhir Izquierdo on 04-19-2025 RBC (Bld) [#/Vol] 3.33 10*6/uL Low 4.2-5.4 [facility] White blood cell (WBC) count Ordered By: Sudhir Izquierdo on 04-19-2025 WBC (Bld) [#/Vol] 10.3 10*3/uL 4.4-11.0 [facility] Anion gap in Serum or Plasma Ordered By: Bert Greenwood on 04-18-2025 Anion gap [Moles/Vol] 12 mmol/L 5-15 [facility] BUN/creatinine ratioOrdered By: Bert Greenwood on 04-18-2025 Urea nitrogen/Creatinine [Mass ratio] 8.6 mg/mg Low - [facility] Basic Metabolic Profile (BMP )on 04-18-2025 BUN/CRE 8.6 RATIO Low 07-17 [facility] Comment on above: Performed By: #### L 100.0100, L500.2500 ####[facility] [address] [place], [address] Calcium [Mass/Vol] 8.8 mg/dL Normal 7.6-11.0 [facility] Comment on above: Performed By: #### L 100.0100, L500.2500 ####[facility] [address] [place], [address] Chloride [Moles/Vol] 101 mmol/L Normal 98-108 [facility] Comment on above: Performed By: #### L 100.0100, L500.2500 ####[facility] [address] [place], [address] CO2 [Moles/Vol] 27.2 mmol/L Normal 21.0-32.0 [facility] Comment on above: Performed By: #### L 100.0100, L500.2500 ####[facility] [address] [place], [address] Creatinine [Mass/Vol] 0.57 mg/dL Low 0.70-1.20 [facility] Comment on above: Performed By: #### L 100.0100, L500.2500 ####[facility] [address] [place], [address] ECRCL 85.74 ml/min Normal 50-250 [facility] Comment on above: Performed By: #### L 100.0100, L500.2500 ####[facility] [address] [place], [address] GAP 12 Normal 5-15 [facility] Comment on above: Performed By: #### L 100.0100, L500.2500 ####[facility] [address] [place], [address] GFR/1.73 sq M.predicted among non-blacks MDRD (S/P/Bld) [Vol rate/Area] 103 mL/min/{1.73_m2} Normal >60 [facility] Comment on above: Result Comment: mL/m in/1.73m2 CKD-EPI Creatinine Equation (2020) Performed By: #### L 100.0100, L500.2500 ####[facility] [address] [place], [address] Glucose [Mass/Vol] 121 mg/dL High 70-99 [facility] Comment on above: Performed By: #### L 100.0100, L500.2500 ####[facility] [address] [place], [address] Potassium [Moles/Vol] 3.7 mmol/L Normal 3.3-5.1 [facility] Comment on above: Performed By: #### L 100.0100, L500.2500 ####[facility] [address] [place], [address] Sodium [Moles/Vol] 139 mmol/L Normal 133-145 [facility] Comment on above: Performed By: #### L 100.0100, L500.2500 ####[facility] [address] [place], [address] Urea nitrogen [Mass/Vol] 5 mg/dL Normal 4-19 [facility] Comment on above: Performed By: #### L 100.0100, L500.2500 ####[facility] [address] [place], [address] CBC W/Diff, Automatedon 07 Absolute Lymph 2.64 X10 3/uL Normal 0.83-4.51 [facility] Comment on above: Performed By: #### L 100.0100, L500.2500 ####[facility] [address] [place], [address] Absolute Neut 6.6 X10 3/uL Normal 2.0-7.7 [facility] Comment on above: Performed By: #### L 100.0100, L500.2500 ####[facility] [address] [place], [address] Basophils/100 WBC (Bld) 0.5 % Normal 0-1 [facility] Comment on above: Performed By: #### L 100.0100, L500.2500 ####[facility] [address] [place], [address] Eosinophils/100 WBC (Bld) 8.1 % High 0-5 [facility] Comment on above: Performed By: #### L 100.0100, L500.2500 ####[facility] [address] [place], [address] Erythrocyte distribution width (RBC) [Ratio] 14.8 % High 11.6-14.6 [facility] Comment on above: Performed By: #### L 100.0100, L500.2500 ####[facility] [address] [place], [address] Hematocrit (Bld) [Volume fraction] 28.1 % Low 37-47 [facility] Comment on above: Performed By: #### L 100.0100, L500.2500 ####[facility] [address] [place], [address] Hemoglobin (Bld) [Mass/Vol] 8.8 g/dL Low 12.0-15.0 [facility] Comment on above: Performed By: #### L 100.0100, L500.2500 ####[facility] [address] [place], [address] IG% 0.500 Normal 0.0-0.9 [facility] Comment on above: Result Comment: IG% - Immature Granulocytes (promyelocytes, myelocytes andmetamyelocytes) > 1% indicates that a LEFT SHIFT is Present. Performed By: #### L 100.0100, L500.2500 ####[facility] [address] [place], [address] Lymphocytes/100 WBC (Bld) 23.8 % Normal 19-41 [facility] Comment on above: Performed By: #### L 100.0100, L500.2500 ####[facility] [address] [place], [address] MCH (RBC) [Entitic mass] 26.3 pg Low 27.0-32.0 [facility] Comment on above: Performed By: #### L 100.0100, L500.2500 ####[facility] [address] [place], [address] MCHC (RBC) [Mass/Vol] 31.3 g/dL Low 32-36 [facility] Comment on above: Performed By: #### L 100.0100, L500.2500 ####[facility] [address] [place], [address] MCV (RBC) [Entitic vol] 84.1 fL Normal 81-99 [facility] Comment on above: Performed By: #### L 100.0100, L500.2500 ####[facility] [address] [place], [address] Monocytes/100 WBC (Bld) 7.0 % Normal 0-10 [facility] Comment on above: Performed By: #### L 100.0100, L500.2500 ####[facility] [address] [place], [address] Neutrophils/100 WBC (Bld) 60.1 % Normal 47-70 [facility] Comment on above: Performed By: #### L 100.0100, L500.2500 ####[facility] [address] [place], [address] Nucleated RBC (Bld) [#/Vol] 0 10*3/uL Normal 0-5 [facility] Comment on above: Performed By: #### L 100.0100, L500.2500 ####[facility] [address] [place], [address] Platelet mean volume (Bld) [Entitic vol] 9.9 fL Normal 6.2-12.0 [facility] Comment on above: Performed By: #### L 100.0100, L500.2500 ####[facility] [address] [place], [address] Platelets (Bld) [#/Vol] 303 10*3/uL Normal 150-450 [facility] Comment on above: Performed By: #### L 100.0100, L500.2500 ####[facility] [address] [place], [address] RBC (Bld) [#/Vol] 3.34 10*6/uL Low 4.2-5.4 [facility] Comment on above: Performed By: #### L 100.0100, L500.2500 ####[facility] [address] [place], [address] RDW SD 45.5 fl High 35.1-43.9 [facility] Comment on above: Performed By: #### L 100.0100, L500.2500 ####[facility] [address] [place], [address] WBC (Bld) [#/Vol] 11.1 10*3/uL High 4.4-11.0 [facility] Comment on above: Performed By: #### L 100.0100, L500.2500 ####[facility] [address] [place], [address] Carbon dioxide, total [Moles /volume] in Central venous bloodOrdered By: Bert Greenwood on 04-18-2025 CO2 [Moles/Vol] 27.2 mmol/L 21.0-32.0 [facility] Chloride assayOrdered By: Dorian Greenwood on 04-18-2025 Chloride [Moles/Vol] 101 mmol/L 98-108 [facility] Glomerular filtration rate ( GFR) estimation/1.73 sq m using serum, plasma, or whole bOrdered By: Bert Greenwood on 04-18-2025 GFR/1.73 sq M.predicted among non-blacks MDRD (S/P/Bld) [Vol rate/Area] 103 mL/min/{1.73_m2} >60 [facility] Potassium measurement (mass/ volume)Ordered By: Bert Greenwood on 04-18-2025 Potassium (Unsp spec) [Mass/Vol] 3.7 mmol/L 3.3-5.1 [facility] Serum creatinine measurement (mass/volume)Ordered By: Bert Greenwood on 04-18-2025 Creatinine [Mass/Vol] 0.57 mg/dL Low 0.70-1.20 [facility] Serum glucose measurement (m ass/volume)Ordered By: Bert Greenwood on 04-18-2025 Glucose [Mass/Vol] 121 mg/dL High 70-99 [facility] Serum or plasma calcium esthela urement (mass/volume)Ordered By: Bert Greenwood on 04-18-2025 Calcium [Mass/Vol] 8.8 mg/dL 7.6-11.0 [facility] Serum or plasma urea nitroge n measurement (mass/volume)Ordered By: Bert Greenwood on 04-18-2025 Urea nitrogen [Mass/Vol] 5 mg/dL 4-19 [facility] Sodium levelOrdered By: Mandy Greenwood on 04-18-2025 Sodium [Moles/Vol] 139 mmol/L 133-145 [facility] Bilirubin, totalOrdered By: Bert Greenwood on 04-17-2025 Bilirubin [Mass/Vol] 0.18 mg/dL 0.00-1.30 [facility] CBC W/Diff, Automatedon 03-29 Absolute Lymph 2.11 X10 3/uL Normal 0.83-4.51 [facility] Comment on above: Performed By: #### L 500.4050, L100.0100, L501.2450 ####[facility] [address] [place], [address] Absolute Neut 8.8 X10 3/uL High 2.0-7.7 [facility] Comment on above: Performed By: #### L 500.4050, L100.0100, L501.2450 ####[facility] [address] [place], [address] Basophils/100 WBC (Bld) 0.5 % Normal 0-1 [facility] Comment on above: Performed By: #### L 500.4050, L100.0100, L501.2450 ####[facility] [address] [place], [address] Eosinophils/100 WBC (Bld) 5.0 % Normal 0-5 [facility] Comment on above: Performed By: #### L 500.4050, L100.0100, L501.2450 ####[facility] [address] [place], [address] Erythrocyte distribution width (RBC) [Ratio] 14.9 % High 11.6-14.6 [facility] Comment on above: Performed By: #### L 500.4050, L100.0100, L501.2450 ####[facility] [address] [place], [address] Hematocrit (Bld) [Volume fraction] 28.3 % Low 37-47 [facility] Comment on above: Performed By: #### L 500.4050, L100.0100, L501.2450 ####[facility] [address] [place], [address] Hemoglobin (Bld) [Mass/Vol] 8.9 g/dL Low 12.0-15.0 [facility] Comment on above: Performed By: #### L 500.4050, L100.0100, L501.2450 ####[facility] [address] [place], [address] IG% 0.600 Normal 0.0-0.9 [facility] Comment on above: Result Comment: IG% - Immature Granulocytes (promyelocytes, myelocytes andmetamyelocytes) > 1% indicates that a LEFT SHIFT is Present. Performed By: #### L 500.4050, L100.0100, L501.2450 ####[facility] [address] [place], [address] Lymphocytes/100 WBC (Bld) 16.6 % Low 19-41 [facility] Comment on above: Performed By: #### L 500.4050, L100.0100, L501.2450 ####[facility] [address] [place], [address] MCH (RBC) [Entitic mass] 26.8 pg Low 27.0-32.0 [facility] Comment on above: Performed By: #### L 500.4050, L100.0100, L501.2450 ####[facility] [address] [place], [address] MCHC (RBC) [Mass/Vol] 31.4 g/dL Low 32-36 [facility] Comment on above: Performed By: #### L 500.4050, L100.0100, L501.2450 ####[facility] [address] [place], [address] MCV (RBC) [Entitic vol] 85.2 fL Normal 81-99 [facility] Comment on above: Performed By: #### L 500.4050, L100.0100, L501.2450 ####[facility] [address] [place], [address] Monocytes/100 WBC (Bld) 8.3 % Normal 0-10 [facility] Comment on above: Performed By: #### L 500.4050, L100.0100, L501.2450 ####[facility] [address] [place], [address] Neutrophils/100 WBC (Bld) 69.0 % Normal 47-70 [facility] Comment on above: Performed By: #### L 500.4050, L100.0100, L501.2450 ####[facility] [address] [place], [address] Nucleated RBC (Bld) [#/Vol] 0 10*3/uL Normal 0-5 [facility] Comment on above: Performed By: #### L 500.4050, L100.0100, L501.2450 ####[facility] [address] [place], [address] Platelet mean volume (Bld) [Entitic vol] 10.3 fL Normal 6.2-12.0 [facility] Comment on above: Performed By: #### L 500.4050, L100.0100, L501.2450 ####[facility] [address] [place], [address] Platelets (Bld) [#/Vol] 310 10*3/uL Normal 150-450 [facility] Comment on above: Performed By: #### L 500.4050, L100.0100, L501.2450 ####[facility] [address] [place], [address] RBC (Bld) [#/Vol] 3.32 10*6/uL Low 4.2-5.4 [facility] Comment on above: Performed By: #### L 500.4050, L100.0100, L501.2450 ####[facility] [address] [place], [address] RDW SD 46.7 fl High 35.1-43.9 [facility] Comment on above: Performed By: #### L 500.4050, L100.0100, L501.2450 ####[facility] [address] [place], [address] WBC (Bld) [#/Vol] 12.7 10*3/uL High 4.4-11.0 [facility] Comment on above: Performed By: #### L 500.4050, L100.0100, L501.2450 ####[facility] [address] [place], [address] Comprehensive Metabolic Prof [facility] 04-17-2025 Albumin [Mass/Vol] 3.0 g/dL Low 3.4-4.8 [facility] Comment on above: Performed By: #### L 500.4050, L100.0100, L501.2450 ####[facility] [address] [place], [address] Albumin/Globulin [Mass ratio] 1.0 {ratio} Normal 0.9-2.4 [facility] Comment on above: Performed By: #### L 500.4050, L100.0100, L501.2450 ####[facility] [address] [place], [address] ALK PHOS 113 U/L High 35-104 [facility] Comment on above: Performed By: #### L 500.4050, L100.0100, L501.2450 ####[facility] [address] [place], [address] ALT [Catalytic activity/Vol] 9 U/L Normal <=34 [facility] Comment on above: Performed By: #### L 500.4050, L100.0100, L501.2450 ####[facility] [address] [place], [address] AST [Catalytic activity/Vol] 11 U/L Normal <=31 [facility] Comment on above: Performed By: #### L 500.4050, L100.0100, L501.2450 ####[facility] [address] [place], [address] Bilirubin [Mass/Vol] 0.18 mg/dL Normal 0.00-1.30 [facility] Comment on above: Performed By: #### L 500.4050, L100.0100, L501.2450 ####[facility] [address] [place], [address] BUN/CRE 7.7 RATIO Low 10-20 [facility] Comment on above: Performed By: #### L 500.4050, L100.0100, L501.2450 ####[facility] [address] [place], [address] Calcium [Mass/Vol] 9.1 mg/dL Normal 7.6-11.0 [facility] Comment on above: Performed By: #### L 500.4050, L100.0100, L501.2450 ####[facility] [address] [place], [address] Chloride [Moles/Vol] 101 mmol/L Normal 98-108 [facility] Comment on above: Performed By: #### L 500.4050, L100.0100, L501.2450 ####[facility] [address] [place], [address] CO2 [Moles/Vol] 26.9 mmol/L Normal 21.0-32.0 [facility] Comment on above: Performed By: #### L 500.4050, L100.0100, L501.2450 ####[facility] [address] [place], [address] Creatinine [Mass/Vol] 0.57 mg/dL Low 0.70-1.20 [facility] Comment on above: Performed By: #### L 500.4050, L100.0100, L501.2450 ####[facility] [address] [place], [address] ECRCL 85.74 ml/min Normal 50-250 [facility] Comment on above: Performed By: #### L 500.4050, L100.0100, L501.2450 ####[facility] [address] [place], [address] GAP 12 Normal 5-15 [facility] Comment on above: Performed By: #### L 500.4050, L100.0100, L501.2450 ####[facility] [address] [place], [address] GFR/1.73 sq M.predicted among non-blacks MDRD (S/P/Bld) [Vol rate/Area] 103 mL/min/{1.73_m2} Normal >60 [facility] Comment on above: Result Comment: mL/m in/1.73m2 CKD-EPI Creatinine Equation (2020) Performed By: #### L 500.4050, L100.0100, L501.2450 ####[facility] [address] [place], [address] Globulin (S) [Mass/Vol] 3.0 g/dL Normal 2.2-4.2 [facility] Comment on above: Performed By: #### L 500.4050, L100.0100, L501.2450 ####[facility] [address] [place], [address] Glucose [Mass/Vol] 107 mg/dL High 70-99 [facility] Comment on above: Performed By: #### L 500.4050, L100.0100, L501.2450 ####[facility] [address] [place], [address] Potassium [Moles/Vol] 3.8 mmol/L Normal 3.3-5.1 [facility] Comment on above: Performed By: #### L 500.4050, L100.0100, L501.2450 ####[facility] [address] [place], [address] Sodium [Moles/Vol] 139 mmol/L Normal 133-145 [facility] Comment on above: Performed By: #### L 500.4050, L100.0100, L501.2450 ####[facility] [address] [place], [address] T PROT 6.0 g/dL Normal 5.9-8.4 [facility] Comment on above: Performed By: #### L 500.4050, L100.0100, L501.2450 ####[facility] [address] [place], [address] Urea nitrogen [Mass/Vol] 4 mg/dL Normal 4-19 [facility] Comment on above: Performed By: #### L 500.4050, L100.0100, L501.2450 ####[facility] [address] [place], [address] LDHon 04-17-2025 LDH 145 U/L Normal 84-246 [facility] Comment on above: Performed By: #### L 504.2610 ####[facility] [address] [place], [address] Lipaseon 04-17-2025 Lipase [Catalytic activity/Vol] 90 U/L High 13-75 [facility] Comment on above: Result Comment: Jenny capellan note:LIPASE revised reference range effective 23.New Lipase methodology. Expected to produce lower valuesthan the previous assay method.NEW Reference Range: 13 - 75 U/L Performed By: #### L 500.4050, L100.0100, L501.2450 ####[facility] [address] [place], [address] No Panel InformationOrdered By: Bert Greenwood on 04-17-2025 11 U/L <32 [facility] Serum globulin measurementOr dered By: Bert Greenwood on 04-17-2025 Globulin (S) [Mass/Vol] 3.0 g/dL 2.2-4.2 [facility] Serum or plasma alanine pimentel otransferase (ALT) measurementOrdered By: Bert Greenwood on 04-17-2025 ALT [Catalytic activity/Vol] 9 U/L <35 [facility] Serum or plasma albumin esthela urement (mass/volume)Ordered By: Bert Greenwood on 04-17-2025 Albumin [Mass/Vol] 3.0 g/dL Low 3.4-4.8 [facility] Serum or plasma albumin/glob ulin mass ratioOrdered By: Bert Greenwood on 04-17-2025 Albumin/Globulin [Mass ratio] 1.0 {ratio} 0.9-2.4 [facility] Serum or plasma alkaline jose sphatase measurementOrdered By: Bert Greenwood on 04-17-2025 ALP [Catalytic activity/Vol] 113 U/L High 35-104 [facility] Total proteinOrdered By: Art Greenwood on 04-17-2025 Protein [Mass/Vol] 6.0 g/dL 5.9-8.4 [facility] Alcohol, Blood (Medical)-Ser umon 04-16-2025 SERUM ETOH < 10.1 Normal <=10.0 [facility] Comment on above: Result Comment: This test is for medical purposes only. The legaldefinition of intoxication varies according to local law. Performed By: #### L 501.9100, L505.5000 ####[facility] [address] [facility] [place], [address] Amphetamine detection with 1 000 ng/mL as cutoffOrdered By: Jackson Chopra on 04-16-2025 Amphetamines Screen method >1000 ng/mL Ql (U) Negative < 200 ng/mL [facility] Bilirubin Test strip Ql (U)O rdered By: Erik Gomez on 04-16-2025 Bilirubin Ql (U) Negative Negative [facility] CBC W/Diff, Automatedon 03-29 Absolute Lymph 2.17 X10 3/uL Normal 0.83-4.51 [facility] Comment on above: Performed By: #### L 100.0100, L501.2300, L501.9520, L500.4050, L503.0106, L500.4100 ####[facility] [address] [place], [address] Absolute Neut 11.4 X10 3/uL High 2.0-7.7 [facility] Comment on above: Performed By: #### L 100.0100, L501.2300, L501.9520, L500.4050, L503.0106, L500.4100 ####[facility] [address] [place], [address] Basophils/100 WBC (Bld) 0.3 % Normal 0-1 [facility] Comment on above: Performed By: #### L 100.0100, L501.2300, L501.9520, L500.4050, L503.0106, L500.4100 ####[facility] [address] [place], [address] Eosinophils/100 WBC (Bld) 3.7 % Normal 0-5 [facility] Comment on above: Performed By: #### L 100.0100, L501.2300, L501.9520, L500.4050, L503.0106, L500.4100 ####[facility] [address] [place], [address] Erythrocyte distribution width (RBC) [Ratio] 14.7 % High 11.6-14.6 [facility] Comment on above: Performed By: #### L 100.0100, L501.2300, L501.9520, L500.4050, L503.0106, L500.4100 ####[facility] [id number] [place], [address] Hematocrit (Bld) [Volume fraction] 30.1 % Low 37-47 [facility] Comment on above: Performed By: #### L 100.0100, L501.2300, L501.9520, L500.4050, L503.0106, L500.4100 ####[facility] [id number] [place], [address] Hemoglobin (Bld) [Mass/Vol] 9.3 g/dL Low 12.0-15.0 [facility] Comment on above: Performed By: #### L 100.0100, L501.2300, L501.9520, L500.4050, L503.0106, L500.4100 ####[facility] [id number] [place], [address] IG% 0.600 Normal 0.0-0.9 [facility] Comment on above: Result Comment: IG% - Immature Granulocytes (promyelocytes, myelocytes andmetamyelocytes) > 1% indicates that a LEFT SHIFT is Present. Performed By: #### L 100.0100, L501.2300, L501.9520, L500.4050, L503.0106, L500.4100 ####[facility] [address] [place], [address] Lymphocytes/100 WBC (Bld) 14.2 % Low 19-41 [facility] Comment on above: Performed By: #### L 100.0100, L501.2300, L501.9520, L500.4050, L503.0106, L500.4100 ####[facility] [address] [place], [address] MCH (RBC) [Entitic mass] 26.6 pg Low 27.0-32.0 [facility] Comment on above: Performed By: #### L 100.0100, L501.2300, L501.9520, L500.4050, L503.0106, L500.4100 ####[facility] [address] [place], [address] MCHC (RBC) [Mass/Vol] 30.9 g/dL Low 32-36 [facility] Comment on above: Performed By: #### L 100.0100, L501.2300, L501.9520, L500.4050, L503.0106, L500.4100 ####[facility] [address] [place], [address] MCV (RBC) [Entitic vol] 86.2 fL Normal 81-99 [facility] Comment on above: Performed By: #### L 100.0100, L501.2300, L501.9520, L500.4050, L503.0106, L500.4100 ####[facility] [address] [place], [address] Monocytes/100 WBC (Bld) 7.0 % Normal 0-10 [facility] Comment on above: Performed By: #### L 100.0100, L501.2300, L501.9520, L500.4050, L503.0106, L500.4100 ####[facility] [address] [place], [address] Neutrophils/100 WBC (Bld) 74.2 % High 47-70 [facility] Comment on above: Performed By: #### L 100.0100, L501.2300, L501.9520, L500.4050, L503.0106, L500.4100 ####[facility] [address] [place], [address] Nucleated RBC (Bld) [#/Vol] 0 10*3/uL Normal 0-5 [facility] Comment on above: Performed By: #### L 100.0100, L501.2300, L501.9520, L500.4050, L503.0106, L500.4100 ####[facility] [address] [place], [address] Platelet mean volume (Bld) [Entitic vol] 9.7 fL Normal 6.2-12.0 [facility] Comment on above: Performed By: #### L 100.0100, L501.2300, L501.9520, L500.4050, L503.0106, L500.4100 ####[facility] [address] [place], [address] Platelets (Bld) [#/Vol] 275 10*3/uL Normal 150-450 [facility] Comment on above: Performed By: #### L 100.0100, L501.2300, L501.9520, L500.4050, L503.0106, L500.4100 ####[facility] [address] [place], [address] RBC (Bld) [#/Vol] 3.49 10*6/uL Low 4.2-5.4 [facility] Comment on above: Performed By: #### L 100.0100, L501.2300, L501.9520, L500.4050, L503.0106, L500.4100 ####[facility] [address] [place], [address] RDW SD 46.5 fl High 35.1-43.9 [facility] Comment on above: Performed By: #### L 100.0100, L501.2300, L501.9520, L500.4050, L503.0106, L500.4100 ####[facility] [address] [place], [address] WBC (Bld) [#/Vol] 15.3 10*3/uL High 4.4-11.0 [facility] Comment on above: Performed By: #### L 100.0100, L501.2300, L501.9520, L500.4050, L503.0106, L500.4100 ####[facility] [address] [place], [address] Calculated very low density lipoprotein (VLDL) cholesterol measurementOrdered By: Jackson Chopra on 04-16-2025 Calculated very low density lipoprotein (VLDL) cholesterol measurement 24 mg/dL 5-40 [facility] Comprehensive Metabolic Prof ilon 04-16-2025 BUN/CRE 5.0 RATIO Low - [facility] Comment on above: Result Comment: AMENDED REPORT 04/16/2545 BUN/CRE previously reported as: 3.9 L RATIO Performed By: #### L 100.0100, L501.2300, L501.9520, L500.4050, L503.0106, L500.4100 ####[facility] [address] [place], [address] Urea nitrogen [Mass/Vol] 3 mg/dL Low - [facility] Comment on above: Result Comment: AMENDED REPORT 04/16/2545 BUN previously reported as: 2 L mg/dL Performed By: #### L 100.0100, L501.2300, L501.9520, L500.4050, L503.0106, L500.4100 ####[facility] [address] [place], [address] Folate [Mass/volume] in Seru m or PlasmaOrdered By: Jackson Chopra on 04-16-2025 Folate [Mass/Vol] 10.50 ng/mL 4.60-34.80 [facility] Folates,Serum (Folic Acid)on 04-16-2025 FOLATES,SERUM 10.50 ng/mL Normal 4.60-34.80 [facility] Comment on above: Result Comment: Hemo lysis, Results will be affected, Requires Recollection. Performed By: #### L 506.0200, L501.5200 ####[facility] [address] [place], [address] H AND P Exam - Hospitaliston 04-16-2025 H&P Exam - Hospitalist Normal [facility] Ketones Test strip Ql (U)Ord ered By: Erik Gomez on 04-16-2025 Ketones Ql (U) Negative Negative [facility] LDHon 04-16-2025 LDH 160 U/L Normal 84-246 [facility] Comment on above: Performed By: #### L 504.2610 ####[facility] [address] [place], [place], [address] LDL calc ser/plasOrdered By: Jackson Chopra on 04-16-2025 Cholesterol in LDL [Mass/Vol] 58 mg/dL [facility] Lipid Profileon 04-16-2025 CHOL:HDL 2.78 Normal [facility] Comment on above: Performed By: #### L 100.0100, L501.2300, L501.9520, L500.4050, L503.0106, L500.4100 ####[facility] [address] [place], [place], [address] Cholesterol [Mass/Vol] 128 mg/dL Normal <=200 [facility] Comment on above: Result Comment: Chol esterol level, Desirable <200 mg/dLBorderline high cholesterol 200-239 mg/dLHigh cholesterol >=240 mg/dLRecommendations of the NCEP Adult Treatment Panel for thefollowing risk-cutoff thresholds for the [place] Americanpopulation. Performed By: #### L 100.0100, L501.2300, L501.9520, L500.4050, L503.0106, L500.4100 ####[facility] [address] [place], [address] Cholesterol in HDL [Mass/Vol] 46 mg/dL Normal [facility] Comment on above: Result Comment: Jazlyn onal Cholesterol Education Program (NCEP) guidelines:<40 mg/dL: Low HDL-cholesterol (major risk factor for CHD)>= 60 mg/dL: High HDL-cholesterol (negative risk factor forCHD)HDL-cholesterol is affected by a number of factors, e.g.smoking, exercise, hormones, sex and age. Performed By: #### L 100.0100, L501.2300, L501.9520, L500.4050, L503.0106, L500.4100 ####[facility] [address] [place], [address] Cholesterol in LDL [Mass/Vol] 58 mg/dL Normal [facility] Comment on above: Result Comment: Bord mfjjxk=686-395 mg/dL Higher Wsyr=185 mg/dL or greater Performed By: #### L 100.0100, L501.2300, L501.9520, L500.4050, L503.0106, L500.4100 ####[facility] [address] [place], [address] Cholesterol in VLDL [Mass/Vol] 24 mg/dL Normal 5-40 [facility] Comment on above: Performed By: #### L 100.0100, L501.2300, L501.9520, L500.4050, L503.0106, L500.4100 ####[facility] [address] [place], [address] Triglyceride [Mass/Vol] 122 mg/dL Normal [facility] Comment on above: Result Comment: The drugs N-Acetylcysteine and Metamizole may falselydepress this assay.Normal range: <150 mg/dLBorderline High: 150-199 mg/dLHigh: 200-499 mg/dLVery High: >500 mg/dL Performed By: #### L 100.0100, L501.2300, L501.9520, L500.4050, L503.0106, L500.4100 ####[facility] [address] [place], [address] Magnesiumon 04-16-2025 Magnesium [Mass/Vol] 1.5 mg/dL Normal 1.5-2.2 [facility] Comment on above: Performed By: #### L 506.0200, L501.5200 ####[facility] [address] [place], [place], [address] Mucus LM Ql (Urine sed)Order ed By: Erik Gomez on 04-16-2025 Mucus Ql (Urine sed) 0 SEEN /hpf [facility] Nitrite Test strip Ql (U)Ord ered By: Erik Gomez on 04-16-2025 Nitrite Ql (U) Negative Negative [facility] No Panel InformationOrdered By: Jackson Chopra on 04-16-2025 Negative < 200 ng/mL [facility] Phosphoruson 04-16-2025 Phosphate [Mass/Vol] 4.4 mg/dL Normal 2.7-4.5 [facility] Comment on above: Performed By: #### L 100.0100, L501.2300, L501.9520, L500.4050, L503.0106, L500.4100 ####[facility] [address] [place], [place], [id number] Protein Test strip Ql (U)Ord ered By: Erik Gomez on 04-16-2025 Protein Ql (U) 15 mg/dl High Negative [facility] Screening urine fentanyl samir surementOrdered By: Jackson Chopra on 04-16-2025 fentaNYL Screen Ql (U) Negative [facility] Serum or plasma cholesterol in HDL measurement (mass/volume)Ordered By: Jackson Chopra on 04-16-2025 Cholesterol in HDL [Mass/Vol] 46 mg/dL >40 [facility] Serum or plasma cholesterol measurement (mass/volume)Ordered By: Jackson Chopra on 04-16-2025 Cholesterol [Mass/Vol] 128 mg/dL <201 [facility] Squamous epithelial cells de tection in urine sediment by light microscopyOrdered By: Erik Gomez on 04-16-2025 Epithelial cells.squamous LM Ql (Urine sed) 0-5 SEEN /hpf - [facility] TSH DL <= 0.005 mIU/L QnOrde red By: Jackson Chopra on 04-16-2025 TSH Qn 1.340 uIU/mL 0.300-4.200 [facility] Thyroid Stim Hormone (TSH)on 04-16-2025 TSH 1.340 uIU/mL Normal 0.300-4.200 [facility] Comment on above: Performed By: #### L 100.0100, L501.2300, L501.9520, L500.4050, L503.0106, L500.4100 ####[facility] [address] [place], [address] Urinalysis, Completeon 04-16 EPI,SQUAMOUS 0-5 SEEN Normal - [facility] Comment on above: Order Comment: CLEAN CATCH Performed By: #### L 400.0001 ####[facility] [address] [place], [address] WBC 0-5 SEEN Normal 0-5 [facility] Comment on above: Order Comment: CLEAN CATCH Performed By: #### L 400.0001 ####[facility] [address] [place], [address] BACTERIA 0 SEEN Normal None Seen [facility] Comment on above: Order Comment: CLEAN CATCH Performed By: #### L 400.0001 ####[facility] [address] [place], [address] Mucus Ql (Urine sed) 0 SEEN Normal [facility] Comment on above: Order Comment: CLEAN CATCH Performed By: #### L 400.0001 ####[facility] [address] [place], [address] RBC 0 SEEN Normal 0-5 [facility] Comment on above: Order Comment: CLEAN CATCH Performed By: #### L 400.0001 ####[facility] [address] [place], [address] Urine Drug Screen (VISTA)on 04-16-2025 AMPHETAMINES Negative Normal <1000 ng/mL [facility] Comment on above: Order Comment: U Performed By: #### L 501.9100, L505.5000 ####[facility] [address] [place], [address] BARBITIURATES Negative Normal < 200 ng/mL [facility] Comment on above: Order Comment: U Performed By: #### L 501.9100, L505.5000 ####[facility] [address] [place], [address] BENZODIAZIPINE Negative Normal < 200 ng/mL [facility] Comment on above: Order Comment: U Performed By: #### L 501.9100, L505.5000 ####[facility] [address] [place], [address] BUP Ur Drug Scr Negative Normal < 200 ng/mL [facility] Comment on above: Order Comment: U Performed By: #### L 501.9100, L505.5000 ####[facility] [address] [place], [address] COCAINE Negative Normal < 300 ng/mL [facility] Comment on above: Order Comment: U Performed By: #### L 501.9100, L505.5000 ####[facility] [address] [place], [address] Fentanyl Negative Normal [facility] Comment on above: Order Comment: U Performed By: #### L 501.9100, L505.5000 ####[facility] [address] [place], [address] METHADONE Negative Normal < 300 ng/mL [facility] Comment on above: Order Comment: U Performed By: #### L 501.9100, L505.5000 ####[facility] [address] [place], [address] OPIATES Positive Normal < 300 ng/mL [facility] Comment on above: Order Comment: U Result Comment: If c onfirmation testing is needed, a separate order will berequired to send out testing to the reference laboratory. Performed By: #### L 501.9100, L505.5000 ####[facility] [address] [place], [address] OXYCODONE Negative Normal < 100 ng/mL [facility] Comment on above: Order Comment: U Performed By: #### L 501.9100, L505.5000 ####[facility] [address] [place], [address] PCP Negative Normal < 25 ng/mL [facility] Comment on above: Order Comment: U Performed By: #### L 501.9100, L505.5000 ####[facility] [address] [place], [address] THC Negative Normal < 50 ng/mL [facility] Comment on above: Order Comment: U Performed By: #### L 501.9100, L505.5000 ####[facility] [address] [place], [address] Urine clarityOrdered By: Di Gomez on 04-16-2025 Clarity (U) Clear Clear [facility] Urine color determinationOrd ered By: Erik Gomez on 04-16-2025 Color (U) Yellow Yellow [facility] Urine glucose detectionOrder ed By: Erik Gomez on 04-16-2025 Glucose Ql (U) Normal mg/dl Normal [facility] Urine leukocyte esterase det ection by dipstickOrdered By: Erik Gomez on 04-16-2025 Leukocyte esterase Test strip Ql (U) 25 /ul High Negative [facility] Urine pHOrdered By: Erik Gomez on 04-16-2025 pH (U) 7.0 [pH] 5.0 - 8.0 [facility] Urine phencyclidine (PCP) de tectionOrdered By: Jackson Chopra on 04-16-2025 Phencyclidine Ql (U) Negative < 25 ng/mL [facility] Urine sediment bacteria coun t by microscopy (number/high power field)Ordered By: Erik Gomez on 04-16-2025 Bacteria LM.HPF (Urine sed) [#/Area] 0 /[HPF] None Seen [facility] Urine specific gravity measu rementOrdered By: Erik Gomez on 04-16-2025 Specific gravity (U) [Rel density] 1.005 1.002-1.030 [facility] Urine urobilinogen measureme ntOrdered By: Erik Gomez on 04-16-2025 Urobilinogen Ql (U) Normal mg/dl Normal [facility] Vitamin B12on 04-16-2025 Cobalamin (Vitamin B12) [Mass/Vol] 415 pg/mL Normal 180-914 [facility] Comment on above: Performed By: #### L 100.0100, L501.2300, L501.9520, L500.4050, L503.0106, L500.4100 ####[facility] [address] [place], [address] Vitamin B12 ser/plasOrdered By: Jackson Chopra on 04-16-2025 Cobalamin (Vitamin B12) [Mass/Vol] 415 pg/mL 180-914 [facility] White blood cell countOrdere d By: Erik Gomez on 04-16-2025 White blood cell count 0-5 SEEN /hpf 0-5 [facility] Abdomen/Pelvis W IV Cont ONL Yon 04-15-2025 Abdomen/Pelvis W IV Cont ONLY Normal [facility] Absolute lymphocyte countOrd ered By: Erik Gomez on 04-15-2025 Lymphocytes Auto (Unsp spec) [#/Vol] 2.76 10*3/uL 0.83-4.51 [facility] Anion gap in Serum or Plasma Ordered By: Erik Gomez on 04-15-2025 Anion gap [Moles/Vol] 11 mmol/L 5-15 [facility] Automated lymphocyte count a s percentage of total leukocytesOrdered By: Erik Gomez on 04-15-2025 Lymphocytes/100 WBC Auto (Unsp spec) 14.6 % Low - [facility] BUN/creatinine ratioOrdered By: Erik Gomez on 04-15-2025 Urea nitrogen/Creatinine [Mass ratio] 5.3 mg/mg Low 10- [facility] Basophil percentageOrdered B y: Erik Gomez on 04-15-2025 Basophils/100 WBC (Bld) 0.4 % 0-1 [facility] Bilirubin, totalOrdered By: Erik Gomez on 04-15-2025 Bilirubin [Mass/Vol] mg/dL 0.00-1.30 [facility] CBC W/Diff, Automatedon 03-28 Absolute Lymph 2.76 X10 3/uL Normal 0.83-4.51 [facility] Comment on above: Performed By: #### L 501.2450, L500.4050, L100.0100 ####[facility] [address] [place], [address] Absolute Neut 13.6 X10 3/uL High 2.0-7.7 [facility] Comment on above: Performed By: #### L 501.2450, L500.4050, L100.0100 ####[facility] [address] [place], [address] Basophils/100 WBC (Bld) 0.4 % Normal 0-1 [facility] Comment on above: Performed By: #### L 501.2450, L500.4050, L100.0100 ####[facility] [address] [place], [address] Eosinophils/100 WBC (Bld) 4.9 % Normal 0-5 [facility] Comment on above: Performed By: #### L 501.2450, L500.4050, L100.0100 ####[facility] [address] [place], [address] Erythrocyte distribution width (RBC) [Ratio] 14.6 % Normal 11.6-14.6 [facility] Comment on above: Performed By: #### L 501.2450, L500.4050, L100.0100 ####[facility] [address] [place], [address] Hematocrit (Bld) [Volume fraction] 33.6 % Low 37-47 [facility] Comment on above: Performed By: #### L 501.2450, L500.4050, L100.0100 ####[facility] [address] [place], [address] Hemoglobin (Bld) [Mass/Vol] 10.7 g/dL Low 12.0-15.0 [facility] Comment on above: Performed By: #### L 501.2450, L500.4050, L100.0100 ####[facility] [address] [place], [address] IG% 0.700 Normal 0.0-0.9 [facility] Comment on above: Result Comment: IG% - Immature Granulocytes (promyelocytes, myelocytes andmetamyelocytes) > 1% indicates that a LEFT SHIFT is Present. Performed By: #### L 501.2450, L500.4050, L100.0100 ####[facility] [address] [place], [address] Lymphocytes/100 WBC (Bld) 14.6 % Low 19-41 [facility] Comment on above: Performed By: #### L 501.2450, L500.4050, L100.0100 ####[facility] [address] [place], [address] MCH (RBC) [Entitic mass] 26.6 pg Low 27.0-32.0 [facility] Comment on above: Performed By: #### L 501.2450, L500.4050, L100.0100 ####[facility] [address] [place], [address] MCHC (RBC) [Mass/Vol] 31.8 g/dL Low 32-36 [facility] Comment on above: Performed By: #### L 501.2450, L500.4050, L100.0100 ####[facility] [address] [place], [address] MCV (RBC) [Entitic vol] 83.6 fL Normal 81-99 [facility] Comment on above: Performed By: #### L 501.2450, L500.4050, L100.0100 ####[facility] [address] [place], [address] Monocytes/100 WBC (Bld) 7.0 % Normal 0-10 [facility] Comment on above: Performed By: #### L 501.2450, L500.4050, L100.0100 ####[facility] [address] [place], [address] Neutrophils/100 WBC (Bld) 72.4 % High 47-70 [facility] Comment on above: Performed By: #### L 501.2450, L500.4050, L100.0100 ####[facility] [address] [place], [address] Nucleated RBC (Bld) [#/Vol] 0 10*3/uL Normal 0-5 [facility] Comment on above: Performed By: #### L 501.2450, L500.4050, L100.0100 ####[facility] [address] [place], [address] Platelet mean volume (Bld) [Entitic vol] 9.5 fL Normal 6.2-12.0 [facility] Comment on above: Performed By: #### L 501.2450, L500.4050, L100.0100 ####[facility] [address] [place], [address] Platelets (Bld) [#/Vol] 291 10*3/uL Normal 150-450 [facility] Comment on above: Performed By: #### L 501.2450, L500.4050, L100.0100 ####[facility] [address] [place], [address] RBC (Bld) [#/Vol] 4.02 10*6/uL Low 4.2-5.4 [facility] Comment on above: Performed By: #### L 501.2450, L500.4050, L100.0100 ####[facility] [address] [place], [address] RDW SD 45.1 fl High 35.1-43.9 [facility] Comment on above: Performed By: #### L 501.2450, L500.4050, L100.0100 ####[facility] [address] [place], [address] WBC (Bld) [#/Vol] 18.9 10*3/uL High 4.4-11.0 [facility] Comment on above: Performed By: #### L 501.2450, L500.4050, L100.0100 ####[facility] [address] [place], [address] Carbon dioxide, total [Moles /volume] in Central venous bloodOrdered By: Erik Gomez on 04-15-2025 CO2 [Moles/Vol] 27.4 mmol/L 21.0-32.0 [facility] Chloride assayOrdered By: John Gomez on 04-15-2025 Chloride [Moles/Vol] 99 mmol/L 98-108 [facility] Comprehensive Metabolic Prof ilon 04-15-2025 Albumin [Mass/Vol] 3.4 g/dL Normal 3.4-4.8 [facility] Comment on above: Performed By: #### L 501.2450, L500.4050, L100.0100 ####[facility] [address] [place], [address] Albumin/Globulin [Mass ratio] 1.0 {ratio} Normal 0.9-2.4 [facility] Comment on above: Performed By: #### L 501.2450, L500.4050, L100.0100 ####[facility] [address] [place], [address] ALK PHOS 127 U/L High 35-104 [facility] Comment on above: Performed By: #### L 501.2450, L500.4050, L100.0100 ####[facility] [address] [place], [address] ALT [Catalytic activity/Vol] 13 U/L Normal <=34 [facility] Comment on above: Performed By: #### L 501.2450, L500.4050, L100.0100 ####[facility] [address] [place], [address] AST [Catalytic activity/Vol] 16 U/L Normal <=31 [facility] Comment on above: Performed By: #### L 501.2450, L500.4050, L100.0100 ####[facility] [address] [place], [address] BUN/CRE 5.3 RATIO Low 10-20 [facility] Comment on above: Performed By: #### L 501.2450, L500.4050, L100.0100 ####[facility] [address] [place], [address] Calcium [Mass/Vol] 9.2 mg/dL Normal 7.6-11.0 [facility] Comment on above: Performed By: #### L 501.2450, L500.4050, L100.0100 ####[facility] [address] [place], [address] Chloride [Moles/Vol] 99 mmol/L Normal 98-108 [facility] Comment on above: Performed By: #### L 501.2450, L500.4050, L100.0100 ####[facility] [address] [place], [address] CO2 [Moles/Vol] 27.4 mmol/L Normal 21.0-32.0 [facility] Comment on above: Performed By: #### L 501.2450, L500.4050, L100.0100 ####[facility] [address] [place], [address] Creatinine [Mass/Vol] 0.69 mg/dL Low 0.70-1.20 [facility] Comment on above: Performed By: #### L 501.2450, L500.4050, L100.0100 ####[facility] [address] [place], [address] ECRCL 70.83 ml/min Normal 50-250 [facility] Comment on above: Performed By: #### L 501.2450, L500.4050, L100.0100 ####[facility] [address] [place], [address] GAP 11 Normal 5-15 [facility] Comment on above: Performed By: #### L 501.2450, L500.4050, L100.0100 ####[facility] [address] [place], [address] GFR/1.73 sq M.predicted among non-blacks MDRD (S/P/Bld) [Vol rate/Area] 99 mL/min/{1.73_m2} Normal >60 [facility] Comment on above: Result Comment: mL/m in/1.73m2 CKD-EPI Creatinine Equation (2020) Performed By: #### L 501.2450, L500.4050, L100.0100 ####[facility] [id number] [place], [address] Globulin (S) [Mass/Vol] 3.5 g/dL Normal 2.2-4.2 [facility] Comment on above: Performed By: #### L 501.2450, L500.4050, L100.0100 ####[facility] [id number] [place], [address] Glucose [Mass/Vol] 111 mg/dL High 70-99 [facility] Comment on above: Performed By: #### L 501.2450, L500.4050, L100.0100 ####[facility] [id number] [place], [address] Potassium [Moles/Vol] 3.6 mmol/L Normal 3.3-5.1 [facility] Comment on above: Result Comment: Hemo lysis present, Results??could be affected.?? Performed By: #### L 501.2450, L500.4050, L100.0100 ####[facility] [address] [place], [address] Sodium [Moles/Vol] 138 mmol/L Normal 133-145 [facility] Comment on above: Performed By: #### L 501.2450, L500.4050, L100.0100 ####[facility] [address] [place], [address] T BILI < 0.15 Normal 0.00-1.30 [facility] Comment on above: Performed By: #### L 501.2450, L500.4050, L100.0100 ####[facility] [address] [place], [address] T PROT 6.9 g/dL Normal 5.9-8.4 [facility] Comment on above: Performed By: #### L 501.2450, L500.4050, L100.0100 ####[facility] [address] [place], [address] Urea nitrogen [Mass/Vol] 4 mg/dL Normal 4-19 [facility] Comment on above: Performed By: #### L 501.2450, L500.4050, L100.0100 ####[facility] [address] [place], [place], [id number] Emergency Department Summary on 04-15-2025 Emergency Department Summary Normal [facility] Eosinophil percentageOrdered By: Erik Gomez on 04-15-2025 Eosinophils/100 WBC (Bld) 4.9 % 0-5 [facility] Erythrocyte distribution wid th ratioOrdered By: Erik Gomez on 04-15-2025 Erythrocyte distribution width (RBC) [Ratio] 14.6 % 11.6-14.6 [facility] Erythrocyte distribution wid th standard deviationOrdered By: Erik Gomez on 04-15-2025 Erythrocyte distribution width (RBC) [Ratio] 45.1 fl High 35.1-43.9 [facility] Glomerular filtration rate ( GFR) estimation/1.73 sq m using serum, plasma, or whole bOrdered By: Erik Gomez on 04-15-2025 GFR/1.73 sq M.predicted among non-blacks MDRD (S/P/Bld) [Vol rate/Area] 99 mL/min/{1.73_m2} >60 [facility] Hematocrit Auto (Bld) [Volum e fraction]Ordered By: Erik Gomez on 04-15-2025 Hematocrit (Bld) [Volume fraction] 33.6 % Low 37-47 [facility] Hemoglobin measurementOrdere d By: Erik Gomez on 04-15-2025 Hemoglobin (Bld) [Mass/Vol] 10.7 g/dL Low 12.0-15.0 [facility] Immature granulocytes/100 WB C Auto (Bld)Ordered By: Erik Gomez on 04-15-2025 Immature granulocytes/100 WBC (Bld) 0.700 % 0.0-0.9 [facility] Lipaseon 04-15-2025 Lipase [Catalytic activity/Vol] 239 U/L High 13-75 [facility] Comment on above: Result Comment: Jenny capellan note:LIPASE revised reference range effective 23.New Lipase methodology. Expected to produce lower valuesthan the previous assay method.NEW Reference Range: 13 - 75 U/L Performed By: #### L 501.2450, L500.4050, L100.0100 ####[facility] [address] [place], [place], [id number] MCV (mean corpuscular volume ) determinationOrdered By: Erik Gomez on 04-15-2025 MCV (RBC) [Entitic vol] 83.6 fL 81-99 [facility] Magnesium measurement (mass/ volume)Ordered By: Jackson Chopra on 04-15-2025 Magnesium (Unsp spec) [Mass/Vol] 1.5 mg/dL 1.5-2.2 [facility] Mean corpuscular hemoglobin (MCH) determinationOrdered By: Erik Gomez on 04-15-2025 MCH (RBC) [Entitic mass] 26.6 pg Low 27.0-32.0 [facility] Monocyte percentageOrdered B y: Erik Gomez on 04-15-2025 Monocytes/100 WBC (Bld) 7.0 % 0-10 [facility] Neutrophil percentageOrdered By: Erik Gomez on 04-15-2025 Neutrophils/100 WBC (Bld) 72.4 % High 47-70 [facility] No Panel InformationOrdered By: Erik Gomez on 04-15-2025 16 U/L <32 [facility] Platelet countOrdered By: John Gomez on 04-15-2025 Platelets (Bld) [#/Vol] 291 10*3/uL 150-450 [facility] Potassium measurement (mass/ volume)Ordered By: Erik Gomez on 04-15-2025 Potassium (Unsp spec) [Mass/Vol] 3.6 mmol/L 3.3-5.1 [facility] RBC Auto (Bld) [#/Vol]Ordere d By: Erik Gomez on 04-15-2025 RBC (Bld) [#/Vol] 4.02 10*6/uL Low 4.2-5.4 [facility] Serum creatinine measurement (mass/volume)Ordered By: Erik Gomez on 04-15-2025 Creatinine [Mass/Vol] 0.69 mg/dL Low 0.70-1.20 [facility] Serum globulin measurementOr dered By: Erik Gomez on 04-15-2025 Globulin (S) [Mass/Vol] 3.5 g/dL 2.2-4.2 [facility] Serum glucose measurement (m ass/volume)Ordered By: Erik Gomez on 04-15-2025 Glucose [Mass/Vol] 111 mg/dL High 70-99 [facility] Serum or plasma alanine pimentel otransferase (ALT) measurementOrdered By: Erik Gomez on 04-15-2025 ALT [Catalytic activity/Vol] 13 U/L <35 [facility] Serum or plasma albumin esthela urement (mass/volume)Ordered By: Erik Gomez on 04-15-2025 Albumin [Mass/Vol] 3.4 g/dL 3.4-4.8 [facility] Serum or plasma albumin/glob ulin mass ratioOrdered By: Erik Gomez on 04-15-2025 Albumin/Globulin [Mass ratio] 1.0 {ratio} 0.9-2.4 [facility] Serum or plasma alkaline jose sphatase measurementOrdered By: Erik Gomez on 04-15-2025 ALP [Catalytic activity/Vol] 127 U/L High 35-104 [facility] Serum or plasma calcium esthela urement (mass/volume)Ordered By: Erik Gomez on 04-15-2025 Calcium [Mass/Vol] 9.2 mg/dL 7.6-11.0 [facility] Serum or plasma ethanol esthela urement (mass/volume)Ordered By: Jackson Chopra on 04-15-2025 Ethanol [Mass/Vol] mg/dL <10.1 [facility] Serum or plasma urea nitroge n measurement (mass/volume)Ordered By: Erik Gomez on 04-15-2025 Urea nitrogen [Mass/Vol] 4 mg/dL 4- [facility] Sodium levelOrdered By: Meet Gomez on 04-15-2025 Sodium [Moles/Vol] 138 mmol/L 133-145 [facility] Total proteinOrdered By: Di cantujeovany Patricia on 04-15-2025 Protein [Mass/Vol] 6.9 g/dL 5.9-8.4 [facility] White blood cell (WBC) count Ordered By: Erik Gomez on 04-15-2025 WBC (Bld) [#/Vol] 18.9 10*3/uL High 4.4-11.0 [facility] CNPNon 04-11-2025 CNPN Telephone (PODCCP) -------- GRACIE BANUELOS ([id number]) 1965 F Date Time Provider Department 04/11/25 MISBAH ELKINS PODCCP During your visit today, we recorded the following information about you: Yuly France 04/11/2025 9:34 AM Signed Transitional Care Management (TCM) [facility] Provider Action / FYI: na SUMMARY: Outreach type: INITIAL OUTREACH Discharge Network Status: In-Network Discharge Source of Patient: [facility] TCM Discharge Report Patient discharged from [facility] on 03.23.25. Admitted for acute on chronic [...] stress female [N39.3] 11/24/2014 HPV test positive [[id number]] 11/24/2014 Alcohol dependence in remission (HCC) [F10.21] [...] with hypox*03/15 (more content not included)... Normal [facility] CNOVon 04-10-2025 CNOV Office Visit (INTMWS ) -------- GRACIE BANUELOS ([id number]) 1965 F Date Time Provider Department 04/10/25 1:40 PM NICOLAS GREER INTMWS During your visit today, we recorded the following information about you: Pulse Respiration Blood pressure Weight 100/minute 16/minute 102/82 56 kg Nicolas Greer APRN.MANAGER AUTO 04/10/2025 2:31 PM Signed Subjective Patient ID: [...] stent placement 03/10. Patient was transferred from [facility]. There she was found to have acute pancreatitis. She had a stent placed in the body of the pancreas however on CT scan at the other hospital she had new peripancreatic inflammation. She was also experiencing acute hypoxic respiratory failure and was emergently intubated and transferred to [facility] ICU. 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 Pancreatic Stent Placement: - Stent placed by Dr. Garrido at [facility]. - Persistent abdominal pain radiating [...] following stent placement led to hospitalization at [facility], then transferred to [facility] due to fluid overload and septic [...] - 6.0 (more content not included)... Normal [facility] 04-10-2025 CNPN Telephone (PODCCP) -------- GRACIE BANUELOS ([id number]) 1965 F Date Time Provider Department 04/10/25 MISBAH ELKINS PODCCP During your visit today, we recorded the following information about you: Yuly France 04/10/2025 9:37 AM Signed Transitional Care Management (TCM) [facility] Provider Action / FYI: na SUMMARY: Outreach type: INITIAL OUTREACH Discharge Network Status: In-Network Discharge Source of Patient: [facility] TCM Discharge Report Patient discharged from [facility] on 03.23.25. Admitted for acute on chronic [...] stress female [N39.3] 11/24/2014 HPV test positive [[id number]] 11/24/2014 Alcohol dependence in remission (HCC) [F10.21] [...] [K85.90, K8*0 (more content not included)... Normal [facility] (INTMWS) -------- GRACIE BANUELOS ([id number]) 1965 F Date Time Provider Department 04/04/25 [...] stress female [N39.3] 11/24/2014 HPV test positive [[id number]] 11/24/2014 Alcohol dependence in remission (HCC) [F10.21] [...] Pneumonia [ (more content not included)... Normal [facility] CNPN Telephone (PODCCP) -------- GRACIE BANUELOS ([id number]) 1965 F Date Time Provider Department 04/04/25 MISBAH ELKINS PODCCP During your visit today, we recorded the following information about you: Yuly France 04/04/2025 9:47 AM Signed Transitional Care Management (TCM) [facility] Provider Action / FYI: na SUMMARY: Outreach type: INITIAL OUTREACH Discharge Network Status: In-Network Discharge Source of Patient: [facility] TCM Discharge Report Patient discharged from [facility] on 03.23.25. Admitted for acute on chronic [...] stress female [N39.3] 11/24/2014 HPV test positive [[id number]] 11/24/2014 Alcohol dependence in remission (HCC) [F10.21] [...] [K85.90, K8 (more content not included)... [facility] GRACIE BANUELOS ([id number]) 1965 F Date Time Provider Department 04/04/25 MISBAH ELKINS 4CQ During your visit today, we recorded the following information about you: Rosy Blancas 04/04/2025 3:15 PM Signed Transitional Care Management (TCM) [facility] Provider Action / FYI: NA SUMMARY: Outreach type: INITIAL OUTREACH Discharge Network Status: In-Network Discharge Source of Patient: [facility] TCM Discharge Report Patient discharged from [facility] on 03.23.25. Admitted for acute on chronic [...] stress female [N39.3] 11/24/2014 HPV test positive [[id number]] 11/24/2014 Alcohol dependence in remission (HCC) [F10.21] [...] [K85.90, K8 (more content not included)... [facility] GRACIE BANUELOS ([id number]) 1965 F Date Time Provider Department 04/04/25 [...] stress female [N39.3] 11/24/2014 HPV test positive [[id number]] 11/24/2014 Alcohol dependence in remission (HCC) [F10.21] [...] Number: 9 (more content not included)... 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 Patient is not sure if [...] - stent management. I discussed that Dr. Farrlel impression - repeat in 4 months ( June 2025) We placed orders for this- Gracie voiced it this could be done at [facility]- I explained that if there was an advanced endoscopist available - yes. She could also have this performed at [facility] for stent management- if this was closer for her- She will notify us. MCKENNA Le Ida 04/07/2025 11:23 AM Signed This patient is on our call list / scheduling pool to schedule at [facility]. We do not have Monitored Anesthesia Care available in [place]. we only do procedural sedation and will not do ERCP in our out patient surgery center. Please have someone from your office explain this to patient and schedule appropriately. When I spoke with patient she was very confused about the procedure she thought she was getting an EGD under procedural sedation. Call patient @ [phone] Allergies As of Date: 03/29/2025 Noted Allergy [...] [K70.10] 11/16/2013 (more content not included)... Normal [facility] 03-28-2025 CNPN Telephone (PODCCP) -------- GRACIE BANUELOS ([id number]) 1965 F Date Time Provider Department 03/28/25 HERMAN NEVAREZ PODCCP During your visit today, we recorded the following information about you: Herman Nevarez RN 03/28/2025 1:05 PM Signed Transitional Care Management (TCM) [facility] Provider Action / FYI: N/A SUMMARY: Outreach type: INITIAL OUTREACH Discharge Network Status: In-Network Discharge Source of Patient: [facility] Discharge Report Patient discharged from [facility] on 03/23/25. Admitted for acute on chronic [...] Assessed Reason for Visit: Transition Of Care [7215] Cmt: RC f/u discharge LVM Prescriptions as [...] stress female [N39.3] 11/24/2014 HPV test positive [[id number]] 11/24/2014 Alcohol dependence in remission (HCC) [F10.21] [...] chronic pancre (more content not included)... Normal [facility] Basic metabolic 2000 panelon 03-23-2025 Anion gap [Moles/Vol] 7 mmol/L Normal 5-16 [facility] Comment on above: Order Comment: Speci men Type: BLOOD SPECIMEN Ordering Facility: [facility] Address: [address] [place] [address] Performed By: #### 2 4323-8, 3040-3, 51157-4, 2777-1, 257-8 #### [facility] CLIA [id number] [address] [place], [place] [address] [place] Calcium [Mass/Vol] 9.2 mg/dL Normal 8.5-10.5 [facility] Comment on above: Order Comment: Speci men Type: BLOOD SPECIMEN Ordering Facility: [facility] Address: [address] [place] [address] Performed By: #### 2 4323-8, 3040-3, 14976-5, 7-1, 2571-8 #### [facility] CLIA [id number] [address] [place] [address] [place] Chloride [Moles/Vol] 101 mmol/L Normal 98-107 [facility] Comment on above: Order Comment: Speci men Type: BLOOD SPECIMEN Ordering Facility: [facility] Address: [address] [place] [address] Performed By: #### 2 4323-8, 3040-3, 51429-7, 7-1, 257-8 #### [facility] CLIA [id number] [address] [place], [place] [address] [place] CO2 [Moles/Vol] 29 mmol/L Normal 21-32 [facility] Comment on above: Order Comment: Speci men Type: BLOOD SPECIMEN Ordering Facility: [facility] Address: [address] [place] [address] Performed By: #### 2 4323-8, 3040-3, 90051-8, 7-1, 257-8 #### [facility] CLIA [id number] [address] [place], [place] [address] [place] Creatinine [Mass/Vol] 0.89 mg/dL Normal 0.51-0.95 [facility] Comment on above: Order Comment: Speci men Type: BLOOD SPECIMEN Ordering Facility: [facility] Address: [address] [place] [address] Result Comment: Gretta ents receiving either N-Acetylcysteine (NAC) or Metamizole prior to venipuncture, may have falsely depressed results. Performed By: #### 2 4323-8, 3040-3, 50813-9, 2776-1, 257-8 #### [facility] CLIA [id number] [address] [place], [place] [address] [place] Creatinine and Glomerular filtration rate.predicted panel (S/P/Bld) 74 mL/min/1.73m??? Normal >=60 [facility] Comment on above: Order Comment: Speci men Type: BLOOD SPECIMEN Ordering Facility: [facility] Address: [address] [place] [address] Result Comment: Pavan mated Glomerular Filtration Rate [...] GFR. Performed By: #### 2 4323-8, 3040-3, 27092-8, 2776-1, 2571-04 #### [facility] CLIA [id number] [address] [place], [place] [address] [place] Glucose [Mass/Vol] 109 mg/dL High 70-100 [facility] Comment on above: Order Comment: Reggie fajardo Type: BLOOD SPECIMEN Ordering Facility: [facility] Address: [address] [id number] Result Comment: The [place] [employer] Association (ADA) provides guidance for cutoff [...] Standards of Medical Care in Diabetes 2016, [place] [employer]. Diabetes Care. 2016.39(Suppl 1). Results may be falsely elevated after the administration of Sulfapyridine. Results may be falsely depressed after the administration of Sulfasalazine. Performed By: #### 2 4323-8, 3040-3, 66552-0, 2776-, 2571-04 #### [facility] CLIA [id number] [address] [place], [place] [address] [place] Potassium [Moles/Vol] 4.9 mmol/L Normal 3.5-5.1 [facility] Comment on above: Order Comment: Reggie fajardo Type: BLOOD SPECIMEN Ordering Facility: [facility] Address: [address] [place] [address] Performed By: #### 2 4323-8, 3040-3, 38164-8, 7-1, 257-8 #### [facility] CLIA [id number] [address] [place] [address] [place] Sodium [Moles/Vol] 137 mmol/L Normal 136-145 [facility] Comment on above: Order Comment: Speci men Type: BLOOD SPECIMEN Ordering Facility: [facility] Address: [address] [place], [place] [address] Performed By: #### 2 4323-8, 3040-3, 98545-2, 7-1, 257-8 #### [facility] CLIA [id number] [address] [place], [place] [address] [place] Urea nitrogen [Mass/Vol] 15 mg/dL Normal 04-22 [facility] Comment on above: Order Comment: Speci men Type: BLOOD SPECIMEN Ordering Facility: [facility] Address: [address] [place] [address] Performed By: #### 2 4323-8, 0-3, 95460-8, 2776-1, 2570-8 #### [facility] CLIA [id number] [address] [place], [place] [address] [place] CBC panel Auto (Bld)on 03-23 Erythrocyte distribution width (RBC) [Ratio] 15.8 % High 11.5-15.0 [facility] Comment on above: Order Comment: Speci men Type: BLOOD SPECIMEN Ordering Facility: [facility] Address: [address] [place] [address] Performed By: #### 2 4323-8, 3040-3, 74597-5, 2776-1, 257-8 #### [facility] CLIA [id number] [address] [place], [place] [address] [place] Hematocrit (Bld) [Volume fraction] 30.7 % Low 36.0-46.0 [facility] Comment on above: Order Comment: Speci men Type: BLOOD SPECIMEN Ordering Facility: [facility] Address: [address] [place], [place] [address] Performed By: #### 2 4323-8, 3040-3, 75650-0, 2777-1, 2578 #### [facility] CLIA [id number] [address] [place], [place] [address] [facility] [place] Hemoglobin (Bld) [Mass/Vol] 9.3 g/dL Low 11.5-15.5 [facility] Comment on above: Order Comment: Speci men Type: BLOOD SPECIMEN Ordering Facility: [facility] Address: [address] [place] [address] Performed By: #### 2 4323-8, 3040-3, 97009-2, 277-1, 257-8 #### [facility] CLIA [id number] [address] [place] [address] OF [place] MCH (RBC) [Entitic mass] 26.7 pg Normal 26.0-34.0 [facility] Comment on above: Order Comment: Speci men Type: BLOOD SPECIMEN Ordering Facility: [facility] Address: [address] [place] [address] Performed By: #### 2 4323-8, 3040-3, 43542-9, 277-1, 257-8 #### [facility] CLIA [id number] [address] [place] [address] STATES OF [facility] MCHC (RBC) [Mass/Vol] 30.3 g/dL Low 30.5-36.0 [facility] Comment on above: Order Comment: Speci men Type: BLOOD SPECIMEN Ordering Facility: [facility] Address: [address] [place] [address] Performed By: #### 2 4323-8, 3040-3, 65970-1, 277-1, 257-8 #### [facility] CLIA [id number] [address] [place] [address] OF [facility] MCV (RBC) [Entitic vol] 88.2 fL Normal 80.0-100.0 [facility] Comment on above: Order Comment: Speci men Type: BLOOD SPECIMEN Ordering Facility: [facility] Address: [address] [place] [address] [place] [address] Performed By: #### 2 4323-8, 3040-3, 38629-0, 2776-1, 257-8 #### [facility] CLIA [id number] [address] [place], [place] [address] [place] Nucleated RBC (Bld) [#/Vol] 10*3/uL Normal <0.01 [facility] Comment on above: Order Comment: Speci men Type: BLOOD SPECIMEN Ordering Facility: [facility] Address: [address] [place], [place] [address] Performed By: #### 2 4323-8, 3040-3, 32305-9, 2776-1, 2570-8 #### [facility] CLIA [id number] [address] [place], [place] [address] [place] Platelet mean volume (Bld) [Entitic vol] 10.4 fL Normal 9.0-12.7 [facility] Comment on above: Order Comment: Speci men Type: BLOOD SPECIMEN Ordering Facility: [facility] Address: [address] [place], [place] [address] Performed By: #### 2 4323-8, 3040-3, 84322-6, 2776-1, 2570-8 #### [facility] CLIA [id number] [address] [place], [place] [address] [place] Platelets (Bld) [#/Vol] 373 10*3/uL Normal 150-400 [facility] Comment on above: Order Comment: Speci men Type: BLOOD SPECIMEN Ordering Facility: [facility] Address: [address] [place], [place] [address] Performed By: #### 2 4323-8, 3040-3, 51874-5, 2776-1, 2570-8 #### [facility] CLIA [id number] [address] [place], [place] [address] [place] RBC (Bld) [#/Vol] 3.48 10*6/uL Low 3.90-5.20 [facility] Comment on above: Order Comment: Speci men Type: BLOOD SPECIMEN Ordering Facility: [facility] Address: [address] [place] [address] Performed By: #### 2 4323-8, 3040-3, 30469-9, 2777-1, 257-8 #### [facility] CLIA [id number] [address] [place], [place] [address] [place] WBC (Bld) [#/Vol] 16.85 10*3/uL High 3.70-11.00 [facility] Comment on above: Order Comment: Speci men Type: BLOOD SPECIMEN Ordering Facility: [facility] Address: [address] [place] [address] Performed By: #### 2 4323-8, 3040-3, 32291-4, 2777-1, 257-8 #### [facility] CLIA [id number] [address] [place] [address] [facility] CNDSon 03-23-2025 CNDS HNO ID: [id number] Author: GURJIT RAYO MD Service: Hospital Medicine [...] stent placement 03/10. Patient was transferred from [facility]. There she was found to have acute pancreatitis. She had a stent placed in the body of the pancreas however on CT scan at the other hospital she had new peripancreatic inflammation. She was alsoexperiencing acute hypoxic respiratory failure and was emergently intubated and transferred to [facility] ICU. 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 Transitions of Care Critical Issues: N/a LABS [...] TO PATIENT: Please (more content not included)... [facility] CONSULT PROGon 03-23-2025 CONSULT PROG HNO ID: [id number] Author: ESME HA APRN.PROPERTY DISPOSAL OFFICER Service: Pulmonary Disease Author Type: Nurse Practitioner [...] 3 severe COPD by GOLD classification ([facility]) 2018 Tobacco use greater than 30 years [...] mg tab(s) (ZOF (more content not included)... [facility] 03-23 Magnesium [Mass/Vol] 1.8 mg/dL Normal 1.6-2.6 [facility] Comment on above: Order Comment: Reggie fajardo Type: BLOOD SPECIMEN Ordering Facility: [facility] Address: [address] [place] [address] Performed By: #### 2 4323-8, 3040-3, 67998-2, 2777-1, 2571-8 #### [facility] CLIA [id number] [address] [place] [address] NT-proBNP [facility] 03-23 Natriuretic peptide.B prohormone N-Terminal [Mass/Vol] 1171 pg/mL High <125 [facility] Comment on above: Order Comment: Reggie fajardo Type: BLOOD SPECIMEN Ordering Facility: [facility] Address: [address] [place] [address] Result Comment: NT-p roBNP results of less than 300 pg/mL likely rules out acute congestive heart failure with 99% predictive value. NOTE: These cutoff points are suggested for ACUTE CHF DIAGNOSIS only Less than 50 years\X09\ Greater than 450 pg/mL 50 - 75 years\X09\\X09\ Greater than 900 pg/mL Greater than 75 years\X09\ Greater than 1800 pg/mL Performed By: #### 2 4323-8, 3040-3, 70395-1, 2777-1, 2571-8 #### [facility] CLIA [id number] [address] [place], [place] [address] [facility] NUTRITIONon 03-23-2025 NUTRITION HNO ID: [id number] Author: KIRSTEN GARCIA RD Service: ? Author [...] Weight Type: Current weight Estimated kilocalorie needs: 5147-6729 Calorie Calculation Method: Ring[place]-. Cynthia (with activity factor) Estimated protein needs [...] March 23, 2025 TIME: 9:31 AM Normal [facility] Basic metabolic 2000 panelon 03-22-2025 Anion gap [Moles/Vol] 9 mmol/L Normal 5-16 [facility] Comment on above: Order Comment: Reggie fajardo Type: BLOOD SPECIMEN Ordering Facility: [facility] Address: [address] [place] [address] Performed By: #### 2 4323-8, 3040-3, 60834-1, 2777-1, 2571-8 #### [facility] CLIA [id number] [facility] [place] [address] [place] Calcium [Mass/Vol] 9.6 mg/dL Normal 8.5-10.5 [facility] Comment on above: Order Comment: Speci men Type: BLOOD SPECIMEN Ordering Facility: [facility] Address: [address] [place], [place] [address] Performed By: #### 2 4323-8, 3040-3, , 2776-09, 2571-04 #### [facility] CLIA [id number] [address] [place] [address] [place] Chloride [Moles/Vol] 99 mmol/L Normal 98-107 [facility] Comment on above: Order Comment: Speci men Type: BLOOD SPECIMEN Ordering Facility: [facility] Address: [address] [place], [place] [address] Performed By: #### 2 4323-8, 0-3, , 2776-09, 2571-04 #### [facility] CLIA [id number] [address] [place] [address] [place] CO2 [Moles/Vol] 29 mmol/L Normal 21-32 [facility] Comment on above: Order Comment: Speci men Type: BLOOD SPECIMEN Ordering Facility: [facility] Address: [address] [place], [place] [address] Performed By: #### 2 4323-8, 3039-3, , 2776-09, 2571-04 #### [facility] CLIA [id number] [address] [place] [address] [place] Creatinine [Mass/Vol] 0.77 mg/dL Normal 0.51-0.95 [facility] Comment on above: Order Comment: Speci men Type: BLOOD SPECIMEN Ordering Facility: [facility] Address: [address] [place], [place] [address] Result Comment: Gretta ents receiving either N-Acetylcysteine (NAC) or Metamizole prior to venipuncture, may have falsely depressed results. Performed By: #### 2 4323-8, 3040-3, 40602-8, 2776-09, 2571-04 #### [facility] CLIA [id number] [address] [place] [address] [place] Creatinine and Glomerular filtration rate.predicted panel (S/P/Bld) 88 mL/min/1.73m??? Normal >=60 [facility] Comment on above: Order Comment: Reggie fajardo Type: BLOOD SPECIMEN Ordering Facility: [facility] Address: [address] [id number] Result Comment: Pavan mated Glomerular Filtration Rate [...] GFR. Performed By: #### 2 4323-8, 3040-3, 27152-3, 2777-1, 2570-8 #### [facility] CLIA [id number] [address] [place] [address] [place] Glucose [Mass/Vol] 102 mg/dL High 70-100 [facility] Comment on above: Order Comment: Reggie fajardo Type: BLOOD SPECIMEN Ordering Facility: [facility] Address: [address] [id number] Result Comment: The [place] Diabetes Association (ADA) provides guidance for cutoff [...] Standards of Medical Care in Diabetes 2016, [place] [employer]. Diabetes Care. 2016.39(Suppl 1). Results may be falsely elevated after the administration of Sulfapyridine. Results may be falsely depressed after the administration of Sulfasalazine. Performed By: #### 2 4323-8, 3040-3, 52211-1, 2777-1, 2570-8 #### [facility] CLIA [id number] [address] [place], [place] [address] [place] Potassium [Moles/Vol] 4.9 mmol/L Normal 3.5-5.1 [facility] Comment on above: Order Comment: Speci men Type: BLOOD SPECIMEN Ordering Facility: [facility] Address: [address] [place], [place] [address] Performed By: #### 2 4323-8, 3040-3, 03050-5, 277-1, 257-8 #### [facility] CLIA [id number] [address] [place], [place] [address] [place] Sodium [Moles/Vol] 137 mmol/L Normal 136-145 [facility] Comment on above: Order Comment: Speci men Type: BLOOD SPECIMEN Ordering Facility: [facility] Address: [address] [place] [address] Performed By: #### 2 4323-8, 3040-3, 40728-6, 277-1, 2570-8 #### [facility] CLIA [id number] [address] [place], [place] [address] [place] Urea nitrogen [Mass/Vol] 12 mg/dL Normal 7-26 [facility] Comment on above: Order Comment: Speci men Type: BLOOD SPECIMEN Ordering Facility: [facility] Address: [address] [place] [address] Performed By: #### 2 4323-8, 3040-3, 25639-9, 2776-1, 2570-8 #### [facility] CLIA [id number] [address] [place], [place] [address] [place] CBC panel Auto (Bld)on 03-22 Erythrocyte distribution width (RBC) [Ratio] 15.4 % High 11.5-15.0 [facility] Comment on above: Order Comment: Speci men Type: BLOOD SPECIMEN Ordering Facility: [facility] Address: [address] [place] [address] Performed By: #### 2 4323-8, 3040-3, 90329-4, 277-1, 257-8 #### [facility] CLIA [id number] [address] [place] [address] [place] Hematocrit (Bld) [Volume fraction] 33.7 % Low 36.0-46.0 [facility] Comment on above: Order Comment: Speci men Type: BLOOD SPECIMEN Ordering Facility: [facility] Address: [address] [place] [address] Performed By: #### 2 4323-8, 3040-3, 93092-5, 2776-09, 2571-04 #### [facility] CLIA [id number] [address] [place], [place] [address] [place] Hemoglobin (Bld) [Mass/Vol] 10.2 g/dL Low 11.5-15.5 [facility] Comment on above: Order Comment: Speci men Type: BLOOD SPECIMEN Ordering Facility: [facility] Address: [address] [place] [address] Performed By: #### 2 4323-8, 3040-3, 28956-5, 27703-28, 2571-04 #### [facility] CLIA [id number] [address] [place], [place] [address] [place] MCH (RBC) [Entitic mass] 26.4 pg Normal 26.0-34.0 [facility] Comment on above: Order Comment: Speci men Type: BLOOD SPECIMEN Ordering Facility: [facility] Address: [address] [place] [address] Performed By: #### 2 4323-8, 3040-3, 25502-0, 2776-09, 2571-04 #### [facility] CLIA [id number] [address] [place], [place] [address] [place] MCHC (RBC) [Mass/Vol] 30.3 g/dL Low 30.5-36.0 [facility] Comment on above: Order Comment: Speci men Type: BLOOD SPECIMEN Ordering Facility: [facility] Address: [address] [place] [address] Performed By: #### 2 4323-8, 3040-3, 28604-6, 2777-1, 257-8 #### [facility] CLIA [id number] [address] [place] [address] [place] MCV (RBC) [Entitic vol] 87.3 fL Normal 80.0-100.0 [facility] Comment on above: Order Comment: Speci men Type: BLOOD SPECIMEN Ordering Facility: [facility] Address: [address] [place], [place] [address] Performed By: #### 2 4323-8, 3040-3, 91096-9, 7-1, 257-8 #### [facility] CLIA [id number] [address] [place] [address] [place] Nucleated RBC (Bld) [#/Vol] 10*3/uL Normal <0.01 [facility] Comment on above: Order Comment: Speci men Type: BLOOD SPECIMEN Ordering Facility: [facility] Address: [address] [place], [place] [address] Performed By: #### 2 4323-8, 3040-3, 89578-8, 7-1, 257-8 #### [facility] CLIA [id number] [address] [place] [address] [place] Platelet mean volume (Bld) [Entitic vol] 10.2 fL Normal 9.0-12.7 [facility] Comment on above: Order Comment: Speci men Type: BLOOD SPECIMEN Ordering Facility: [facility] Address: [address] [place] [address] Performed By: #### 2 4323-8, 3040-3, 45424-2, 7-1, 257-8 #### [facility] CLIA [id number] [address] [place] [address] [place] Platelets (Bld) [#/Vol] 411 10*3/uL High 150-400 [facility] Comment on above: Order Comment: Speci men Type: BLOOD SPECIMEN Ordering Facility: [facility] Address: [address] [place], [place] [address] Performed By: #### 2 4323-8, 3040-3, 91630-4, 2777-1, 2571-8 #### [facility] CLIA [id number] [address] [place], [place] [address] [facility] [place] RBC (Bld) [#/Vol] 3.86 10*6/uL Low 3.90-5.20 [facility] Comment on above: Order Comment: Speci men Type: BLOOD SPECIMEN Ordering Facility: [facility] Address: [address] [place] [address] Performed By: #### 2 4323-8, 3040-3, 29219-2, 2777-1, 2571-8 #### [facility] CLIA [id number] [address] [place], [place] [address] [facility] WBC (Bld) [#/Vol] 17.90 10*3/uL High 3.70-11.00 [facility] Comment on above: Order Comment: Speci men Type: BLOOD SPECIMEN Ordering Facility: [facility] Address: [address] [place] [address] Performed By: #### 2 4323-8, 3040-3, 91198-0, 2777-1, 2571-8 #### [facility] CLIA [id number] [address] [place], [place] [address] [facility] CONSULT PROGon 03-22-2025 CONSULT PROG HNO ID: [id number] Author: ESME HA APRN.PROPERTY DISPOSAL OFFICER Service: Pulmonary Disease Author Type: Nurse Practitioner [...] hepatitis (HCC) 05/18/2012 Alcoholic liver disease ([facility]) 11/16/2013 Anemia Anxiety with depression Arthritis Asthma ([facility]) Chronic hypoxemic respiratory failure ([facility]) COPD (chronic obstructive pulmonary disease) ([facility]) 05/25/2012 DDD (degenerative disc disease), cervical 09/03/2018 [...] infectious organism 2017 Severe protein-calorie malnutrition ([facility]) 01/07/2019 Stage 3 severe COPD by GOLD classification ([facility]) 2018 Tobacco use greater than 30 years [...] 4 mg (more content not included)... Normal [facility] Magnesium SerPl-mCncon 03-22 Magnesium [Mass/Vol] 1.9 mg/dL Normal 1.6-2.6 [facility] Comment on above: Order Comment: Speci men Type: BLOOD SPECIMEN Ordering Facility: [facility] Address: [address] [place] [address] Performed By: #### 2 4323-8, 3040-3, 71238-3, 2777-1, 2571-8 #### [facility] CLIA [id number] [address] THERAPY NTon 03-22-2025 THERAPY NT HNO ID: [id number] Author: KERMIT MAGALLON, PT Service: Physical Therapy Author Type: Physical Therapist Type: Therapy (PT/OT/Speech/Resp) Filed: 03/22/2025 10:55 Note Text: Physical Therapy Evaluation Summary SERVICE DATE: 03/22/2025 SERVICE TIME: 0949 to 1017 ROOM: [place] [address] PT 6 Clicks Score: 22 DISCHARGE RECOMMENDATIONS [...] pancreatitis. (+) Norovirus. Extubated 03/17. Txfer to [facility] 03/18. Relevant Past Medical History: chronic pancreatitis, alcoholic hepatitis, chronic hypoxic respiratory failure (5L baseline) HOME LIVING Patient Lives With: Family, Other: See Comment Comments: Will be discharging to sister's home. Home environment provide is sister's home. Assistance Available: 24-Hour, Other: See Comment Comments: sister, [id number]-rn-vvc and cousin Entry To Home: Stairs, With [...] Weakness (generalized) TREATMENT INTERVENTIONS Evaluation, Therapeutic Activity (79751) Timed Code Treatment (minutes): 10 Skilled Treatment [...] 92% Gait Device: Wheeled Walker General Deviations/Observations: Chirstin decreased Gait Distance (feet): 60 Stairs GOALS [...] March 22, 2025 TIME: 10:55 AM Normal [facility] XR CHEST 1V FRONTALon 2024 XR CHEST [...] left pleural effusion and left lobar atelectasis. Photo Optics Technician: PSCB Transcribe Date/Time: Mar 23 2025 6:52A Dictated by : OZZY LATHAM MD This examination was interpreted and the report reviewed and electronically signed by: OZZY LATHAM MD on Mar 23 2025 6:55AM EST [id number] Normal [facility] Basic metabolic 2000 panelon 03-21-2025 Anion gap [Moles/Vol] 8 mmol/L Normal 5-16 [facility] Comment on above: Order Comment: Speci men Type: BLOOD SPECIMEN Ordering Facility: [facility] Address: [address] [place] [address] Performed By: #### 2 4323-8, 3040-3, 88972-3, 2777-1, 2571-8 #### [facility] CLIA [id number] [address] [place] [address] [place] Calcium [Mass/Vol] 9.5 mg/dL Normal 8.5-10.5 [facility] Comment on above: Order Comment: Speci men Type: BLOOD SPECIMEN Ordering Facility: [facility] Address: [address] [place], [place] [address] Performed By: #### 2 4323-8, 3040-3, 12382-4, 2776-09, 2571-04 #### [facility] CLIA [id number] [address] [place] [address] [place] Chloride [Moles/Vol] 98 mmol/L Normal 98-107 [facility] Comment on above: Order Comment: Speci men Type: BLOOD SPECIMEN Ordering Facility: [facility] Address: [address] [place] [address] Performed By: #### 2 4323-8, 3040-3, 97647-1, 2776-09, 2571-04 #### [facility] CLIA [id number] [address] [place] [address] [place] CO2 [Moles/Vol] 31 mmol/L Normal 21-32 [facility] Comment on above: Order Comment: Speci men Type: BLOOD SPECIMEN Ordering Facility: [facility] Address: [address] [place] [address] Performed By: #### 2 4323-8, 0-3, 66109-9, 2776-09, 2571-04 #### [facility] CLIA [id number] [address] [place] [address] [place] Creatinine [Mass/Vol] 1.03 mg/dL High 0.51-0.95 [facility] Comment on above: Order Comment: Speci men Type: BLOOD SPECIMEN Ordering Facility: [facility] Address: [address] [place], [place] [address] Result Comment: Gretta ents receiving either N-Acetylcysteine (NAC) or Metamizole prior to venipuncture, may have falsely depressed results. Performed By: #### 2 4323-8, 3040-3, 38435-0, 1, 8 #### [facility] CLIA [id number] [address] [place] [address] [place] Creatinine and Glomerular filtration rate.predicted panel (S/P/Bld) 62 mL/min/1.73m??? Normal >=60 [facility] Comment on above: Order Comment: Reggie fajardo Type: BLOOD SPECIMEN Ordering Facility: [facility] Address: [address] [phone] Result Comment: Pavan mated Glomerular Filtration Rate [...] GFR. Performed By: #### 2 4323-8, 3040-3, 17289-8, 2777-1, 2570-8 #### [facility] CLIA [id number] [address] [place] [address] [place] Glucose [Mass/Vol] 105 mg/dL High 70-100 [facility] Comment on above: Order Comment: Reggie fajardo Type: BLOOD SPECIMEN Ordering Facility: [facility] Address: [address] [phone] Result Comment: The [place] [employer] Association (ADA) provides guidance for cutoff [...] Standards of Medical Care in Diabetes 2016, [place] [employer]. Diabetes Care. 2016.39(Suppl 1). Results may be falsely elevated after the administration of Sulfapyridine. Results may be falsely depressed after the administration of Sulfasalazine. Performed By: #### 2 4323-8, 3040-3, 56299-1, 2777-1, 2570-8 #### [facility] CLIA [id number] [address] [place], [place] [address] [place] Potassium [Moles/Vol] 4.4 mmol/L Normal 3.5-5.1 [facility] Comment on above: Order Comment: Speci men Type: BLOOD SPECIMEN Ordering Facility: [facility] Address: [address] [place], [place] [address] Performed By: #### 2 4323-8, 3040-3, 63282-2, 277-1, 257-8 #### [facility] CLIA [id number] [address] [place], [place] [address] [place] Sodium [Moles/Vol] 137 mmol/L Normal 136-145 [facility] Comment on above: Order Comment: Speci men Type: BLOOD SPECIMEN Ordering Facility: [facility] Address: [address] [place] [address] Performed By: #### 2 4323-8, 3040-3, 39475-2, 2776-1, 2570-8 #### [facility] CLIA [id number] [address] [place], [place] [address] [place] Urea nitrogen [Mass/Vol] 17 mg/dL Normal 7-26 [facility] Comment on above: Order Comment: Speci men Type: BLOOD SPECIMEN Ordering Facility: [facility] Address: [address] [place], [place] [address] Performed By: #### 2 4323-8, 3040-3, 65342-5, 2776-1, 257-8 #### [facility] CLIA [id number] [address] [place], [place] [address] [place] CBC panel Auto (Bld)on 03-21 Erythrocyte distribution width (RBC) [Ratio] 15.3 % High 11.5-15.0 [facility] Comment on above: Order Comment: Speci men Type: BLOOD SPECIMEN Ordering Facility: [facility] Address: [address] [place] [address] Performed By: #### 2 4323-8, 3040-3, 66970-0, 277-1, 257-8 #### [facility] CLIA [id number] [address] [place] [address] [place] Hematocrit (Bld) [Volume fraction] 33.7 % Low 36.0-46.0 [facility] Comment on above: Order Comment: Speci men Type: BLOOD SPECIMEN Ordering Facility: [facility] Address: [address] [place] [address] Performed By: #### 2 4323-8, 3040-3, 67520-3, 1, 8 #### [facility] CLIA [id number] [address] [place], [place] [address] [place] Hemoglobin (Bld) [Mass/Vol] 10.0 g/dL Low 11.5-15.5 [facility] Comment on above: Order Comment: Speci men Type: BLOOD SPECIMEN Ordering Facility: [facility] Address: [address] [place] [address] Performed By: #### 2 4323-8, 3040-3, 25524-2, 27703-28, 8 #### [facility] CLIA [id number] [address] [place], [place] [address] [place] MCH (RBC) [Entitic mass] 26.0 pg Normal 26.0-34.0 [facility] Comment on above: Order Comment: Speci men Type: BLOOD SPECIMEN Ordering Facility: [facility] Address: [address] [place] [address] Performed By: #### 2 4323-8, 3040-3, 20249-2, 27703-28, 8 #### [facility] CLIA [id number] [address] [place], [place] [address] [place] MCHC (RBC) [Mass/Vol] 29.7 g/dL Low 30.5-36.0 [facility] Comment on above: Order Comment: Speci men Type: BLOOD SPECIMEN Ordering Facility: [facility] Address: [address] [place] [address] Performed By: #### 2 4323-8, 3040-3, 08556-3, 2777-1, 2570-8 #### [facility] CLIA [id number] [address] [place] [address] [place] MCV (RBC) [Entitic vol] 87.8 fL Normal 80.0-100.0 [facility] Comment on above: Order Comment: Speci men Type: BLOOD SPECIMEN Ordering Facility: [facility] Address: [address] [place], [place] [address] Performed By: #### 2 4323-8, 3040-3, 55210-2, 2776-1, 2570-8 #### [facility] CLIA [id number] [address] [place], [place] [address] [place] Nucleated RBC (Bld) [#/Vol] 10*3/uL Normal <0.01 [facility] Comment on above: Order Comment: Speci men Type: BLOOD SPECIMEN Ordering Facility: [facility] Address: [address] [place], [place] [address] Performed By: #### 2 4323-8, 3040-3, 09022-6, 2776-1, 2570-8 #### [facility] CLIA [id number] [address] [place] [address] [place] Platelet mean volume (Bld) [Entitic vol] 9.7 fL Normal 9.0-12.7 [facility] Comment on above: Order Comment: Speci men Type: BLOOD SPECIMEN Ordering Facility: [facility] Address: [address] [place], [place] [address] Performed By: #### 2 4323-8, 0-3, 74581-6, 2776-1, 2570-8 #### [facility] CLIA [id number] [address] [place] [id number] [place] Platelets (Bld) [#/Vol] 380 10*3/uL Normal 150-400 [facility] Comment on above: Order Comment: Speci men Type: BLOOD SPECIMEN Ordering Facility: [facility] Address: [address] [place], [place] [id number] Performed By: #### 2 4323-8, 3040-3, 89922-7, 2777-1, 2571-8 #### [facility] CLIA [id number] [address] [place], [place] [id number] [facility] [place] RBC (Bld) [#/Vol] 3.84 10*6/uL Low 3.90-5.20 [facility] Center Comment on above: Order Comment: Speci men Type: BLOOD SPECIMEN Ordering Facility: [facility] Address: [address] [place] [address] Performed By: #### 2 4323-8, 3040-3, 38710-5, 2777-1, 2571-8 #### [facility] CLIA [id number] [address] [place], [place] [address] [facility] [place] WBC (Bld) [#/Vol] 16.40 10*3/uL High 3.70-11.00 [facility] Comment on above: Order Comment: Speci tana Type: BLOOD SPECIMEN Ordering Facility: [facility] Address: [address] [place] [address] Performed By: #### 2 4323-8, 3040-3, 26996-3, 2777-1, 2571-8 #### [facility] CLIA [id number] [address] [place], [place] [address] [facility] CONSULT PROGon 03-21-2025 CONSULT PROG HNO ID: [id number] Author: EUGENE VIRAMONTES APRN.PROPERTY DISPOSAL OFFICER Service: Pulmonary Disease Author Type: Nurse Practitioner Type: Consult Progress Note Filed: 03/21/2025 14:20 Note Text: [facility] PULMONARY PROGRESS NOTE SERVICE DATE: 03/21/2025 [...] hepatitis (HCC) 05/18/2012 Alcoholic liver disease ([facility]) 11/16/2013 Anemia Anxiety with depression Arthritis Asthma ([facility]) Chronic hypoxemic respiratory failure ([facility]) COPD (chronic obstructive pulmonary disease) ([facility]) 05/25/2012 DDD (degenerative disc disease), cervical 09/03/2018 [...] infectious organism 2017 Severe protein-calorie malnutrition ([facility]) 01/07/2019 Stage 3 severe COPD by GOLD classification ([facility]) 2018 Tobacco use greater than 30 years [...] injection 5,0 (more content not included)... Normal [facility] Magnesium [facility] 03-21 Magnesium [Mass/Vol] 2.3 mg/dL Normal 1.6-2.6 [facility] Comment on above: Order Comment: Reggie fajardo Type: BLOOD SPECIMEN Ordering Facility: [facility] Address: [address] [place] [address] Performed By: #### 2 4323-8, 3040-3, 96693-3, 2777-1, 257-8 #### [facility] CLIA [id number] [address] [place] [address] STATES OF [facility] NT-proBNP [facility] 03-21 Natriuretic peptide.B prohormone N-Terminal [Mass/Vol] 1416 pg/mL High <125 [facility] Comment on above: Order Comment: Reggie fajardo Type: BLOOD SPECIMEN Ordering Facility: [facility] Address: [address] [place] [address] Result Comment: NT-p roBNP results of less than 300 pg/mL likely rules out acute congestive heart failure with 99% predictive value. NOTE: These cutoff points are suggested for ACUTE CHF DIAGNOSIS only Less than 50 years\X09\ Greater than 450 pg/mL 50 - 75 years\X09\\X09\ Greater than 900 pg/mL Greater than 75 years\X09\ Greater than 1800 pg/mL Performed By: #### 2 4323-8, 3040-3, 42528-1, 2777-1, 257-8 #### [facility] CLIA [id number] [address] [place], [place] [address] [place] ALLIED HEALTHon 03-20-2025 ALLIED HEALTH HNO ID: [id number] Author: ?, ?, ? Service: Infection Prevention [...] 20, 2025 TIME: 2:06 PM PAGER/CONTACT #: [phone] Infection Prevention after hours/weekend pager: [phone] Normal [facility] Basic metabolic 2000 panelon 03-20-2025 Anion gap [Moles/Vol] 11 mmol/L Normal 5-16 [facility] Comment on above: Order Comment: Reggie fajardo Type: BLOOD SPECIMEN Ordering Facility: [facility] Address: [address] [place] [address] Performed By: #### S LACTR #### [facility] CLIA [id number] [address] [place] [address] [place] Calcium [Mass/Vol] 9.9 mg/dL Normal 8.5-10.5 [facility] Comment on above: Order Comment: Reggie fajardo Type: BLOOD SPECIMEN Ordering Facility: [facility] Address: [address] [place] [address] Performed By: #### S LACTR #### [facility] CLIA [id number] [address] [place] [address] [place] Chloride [Moles/Vol] 95 mmol/L Low 98-107 [facility] Comment on above: Order Comment: Kettyi men Type: BLOOD SPECIMEN Ordering Facility: [facility] Address: [address] [place] [address] Performed By: #### S LACTR #### [facility] CLIA [id number] [address] [place] [address] [place] CO2 [Moles/Vol] 29 mmol/L Normal 21-32 [facility] Comment on above: Order Comment: Speci men Type: BLOOD SPECIMEN Ordering Facility: [facility] Address: [address] [place] [address] Performed By: #### S LACTR #### [facility] CLIA [id number] [address] [place] [address] [place] Creatinine [Mass/Vol] 0.83 mg/dL Normal 0.51-0.95 [facility] Comment on above: Order Comment: Speci men Type: BLOOD SPECIMEN Ordering Facility: [facility] Address: [address] [place] [address] Result Comment: Gretta ents receiving either N-Acetylcysteine (NAC) or Metamizole prior to venipuncture, may have falsely depressed results. Performed By: #### S LACTR #### [facility] CLIA [id number] [address] [place] [address] OF [facility] Creatinine and Glomerular filtration rate.predicted panel (S/P/Bld) 80 mL/min/1.73m??? Normal >=60 [facility] Comment on above: Order Comment: Reggie fajardo Type: BLOOD SPECIMEN Ordering Facility: [facility] Address: [address] [place] [address] Result Comment: Pavan mated Glomerular Filtration Rate [...] By: #### S LACTR #### [facility] CLIA [id number] [address] [place] [address] [place] Glucose [Mass/Vol] 135 mg/dL High 70-100 [facility] Comment on above: Order Comment: Reggie fajardo Type: BLOOD SPECIMEN Ordering Facility: [facility] Address: [address] [place] [address] Result Comment: The [place] Diabetes Association (ADA) provides guidance for cutoff [...] Standards of Medical Care in Diabetes 2016, [place] [employer]. Diabetes Care. 2016.39(Suppl 1). Results may be falsely elevated after the administration of Sulfapyridine. Results may be falsely depressed after the administration of Sulfasalazine. Performed By: #### S LACTR #### [facility] CLIA [id number] [address] [place] [address] [place] Potassium [Moles/Vol] 4.2 mmol/L Normal 3.5-5.1 [facility] Comment on above: Order Comment: Reggie fajardo Type: BLOOD SPECIMEN Ordering Facility: [facility] Address: [address] [place] [address] Performed By: #### S LACTR #### [facility] CLIA [id number] [address] [place] [address] [place] Sodium [Moles/Vol] 135 mmol/L Low 136-145 [facility] Comment on above: Order Comment: Reggie fajardo Type: BLOOD SPECIMEN Ordering Facility: [facility] Address: [address] [place] [address] Performed By: #### S LACTR #### [facility] CLIA [id number] [address] [place] [address] [place] Urea nitrogen [Mass/Vol] 15 mg/dL Normal 7-26 [facility] Comment on above: Order Comment: Speci men Type: BLOOD SPECIMEN Ordering Facility: [facility] Address: [address] [place] [address] Performed By: #### S LACTR #### [facility] CLIA [id number] [address] [place] [address] [place] CBC panel Auto (Bld)on 03-20 Erythrocyte distribution width (RBC) [Ratio] 15.4 % High 11.5-15.0 [facility] Comment on above: Order Comment: Speci men Type: BLOOD SPECIMEN Ordering Facility: [facility] Address: [address] [place] [address] Performed By: #### S LACTR #### [facility] CLIA [id number] [address] [place] [address] [place] Hematocrit (Bld) [Volume fraction] 37.7 % Normal 36.0-46.0 [facility] Comment on above: Order Comment: Speci men Type: BLOOD SPECIMEN Ordering Facility: [facility] Address: [address] [place] [address] Performed By: #### S LACTR #### [facility] CLIA [id number] [address] [place] [address] [place] Hemoglobin (Bld) [Mass/Vol] 11.7 g/dL Normal 11.5-15.5 [facility] Comment on above: Order Comment: Speci men Type: BLOOD SPECIMEN Ordering Facility: [facility] Address: [address] [place] [address] Performed By: #### S LACTR #### [facility] CLIA [id number] [address] [place] [address] [place] MCH (RBC) [Entitic mass] 26.7 pg Normal 26.0-34.0 [facility] Comment on above: Order Comment: Speci men Type: BLOOD SPECIMEN Ordering Facility: [facility] Address: [address] [place] [address] Performed By: #### S LACTR #### [facility] CLIA [id number] [address] [place] [address] [place] MCHC (RBC) [Mass/Vol] 31.0 g/dL Normal 30.5-36.0 [facility] Comment on above: Order Comment: Speci men Type: BLOOD SPECIMEN Ordering Facility: [facility] Address: [address] [place] [address] Performed By: #### S LACTR #### [facility] CLIA [id number] [address] [place] [address] [place] MCV (RBC) [Entitic vol] 86.1 fL Normal 80.0-100.0 [facility] Comment on above: Order Comment: Speci men Type: BLOOD SPECIMEN Ordering Facility: [facility] Address: [address] [place] [address] Performed By: #### S LACTR #### [facility] CLIA [id number] [address] [place] [address] [place] Nucleated RBC (Bld) [#/Vol] 10*3/uL Normal <0.01 [facility] Comment on above: Order Comment: Speci men Type: BLOOD SPECIMEN Ordering Facility: [facility] Address: [address] [place] [address] Performed By: #### S LACTR #### [facility] CLIA [id number] [address] [place] [address] [place] Platelet mean volume (Bld) [Entitic vol] 10.0 fL Normal 9.0-12.7 [facility] Comment on above: Order Comment: Speci men Type: BLOOD SPECIMEN Ordering Facility: [facility] Address: [address] [place] [address] Performed By: #### S LACTR #### [facility] CLIA [id number] [address] [place] [address] [place] Platelets (Bld) [#/Vol] 447 10*3/uL High 150-400 [facility] Comment on above: Order Comment: Speci men Type: BLOOD SPECIMEN Ordering Facility: [facility] Address: [address] [place], [place] [address] Performed By: #### S LACTR #### [facility] CLIA [id number] [address] [place] [address] [place] RBC (Bld) [#/Vol] 4.38 10*6/uL Normal 3.90-5.20 [facility] Comment on above: Order Comment: Speci men Type: BLOOD SPECIMEN Ordering Facility: [facility] Address: [address] [place] [address] Performed By: #### S LACTR #### [facility] CLIA [id number] [address] [place] [address] [place] WBC (Bld) [#/Vol] 18.58 10*3/uL High 3.70-11.00 [facility] Comment on above: Order Comment: Speci men Type: BLOOD SPECIMEN Ordering Facility: [facility] Address: [address] [place] [address] Performed By: #### S LACTR #### [facility] CLIA [id number] [address] [place], [place] [address] [facility] CONSULT PROGon 03-20-2025 CONSULT PROG HNO ID: [id number] Author: ISIS BE RPh Service: Pharmacy Author [...] there are questions. Isis Be RPh Normal [facility] CONSULT PROG HNO ID: [id number] Author: EUGENE VIRAMONTES APRN.CNP Service: Pulmonary Disease Author Type: Nurse Practitioner Type: Consult Progress Note Filed: 03/20/2025 11:28 Note Text: [facility] PULMONARY PROGRESS NOTE SERVICE DATE: 03/20/2025 [...] 3 severe COPD by GOLD classification ([facility]) 2018 Tobacco use greater than 30 years [...] iv con (more content not included)... Normal [facility] ECHOon 03-20-2025 Echocardiography Echocardiography Rep ort: Transthoracic Echo [facility] Date of service: 03/20/2025 9:25:59 AM [...] * * Final * * * CC [employer] [facility] : [id number] Normal [facility] Magnesium SerPl-mCncon 03-20 Magnesium [Mass/Vol] 2.1 mg/dL Normal 1.6-2.6 [facility] Comment on above: Order Comment: Speci men Type: BLOOD SPECIMEN Ordering Facility: [facility] Address: [address] [place] [address] Performed By: #### S LACTR #### [facility] CLIA [id number] [address] [place] [address] [facility] [place] ALLIED HEALTHon 03-19-2025 ALLIED HEALTH HNO ID: [id number] Author: AMY FUENTES RT(R) Service: Radiology Author [...] PATIENT PRESENTS WITH AN IMPLANTABLE OR ATTACHED WATER RESOURCE ENGINEER: No ALLERGIES: Reviewed and unchanged CONTRAST ALLERGY: [...] March 19, 2025 TIME: 10:13 PM Normal [facility] ARTERIAL BLOOD GASESon 03-19 Base excess Calc (Bld) [Moles/Vol] 3 mmol/L High 0-2 [facility] Comment on above: Order Comment: Speci men Type: BLOOD SPECIMEN Ordering Facility: [facility] Address: [address] [place] [address] Performed By: #### S LACTR #### [facility] CLIA [id number] [address] [place] [address] [place] Body temperature 98.6 [degF] Normal [facility] Comment on above: Order Comment: Speci men Type: BLOOD SPECIMEN Ordering Facility: [facility] Address: [address] [place] [address] Performed By: #### S LACTR #### [facility] CLIA [id number] [address] [place] [address] [place] Calcium.ionized (Bld) [Mass/Vol] 1.25 mmol/L Normal 1.08-1.30 [facility] Comment on above: Order Comment: Speci men Type: BLOOD SPECIMEN Ordering Facility: [facility] Address: [address] [place] [address] Performed By: #### S LACTR #### [facility] CLIA [id number] [address] [place] [address] [place] Carboxyhemoglobin (BldA) [Mass fraction] 0.0 % Normal 0.0-2.0 [facility] Comment on above: Order Comment: Speci men Type: BLOOD SPECIMEN Ordering Facility: [facility] Address: [address] [place] [address] Result Comment: Carb oxyhemoglobin Reference Range for Smokers: 2.0-8.0% Performed By: #### S LACTR #### [facility] CLIA [id number] [address] [place] [address] [place] CO2 (Bld) [Partial pressure] 38 mm Hg Normal 36-46 [facility] Comment on above: Order Comment: Speci men Type: BLOOD SPECIMEN Ordering Facility: [facility] Address: [address] [place] [address] Performed By: #### S LACTR #### [facility] CLIA [id number] [address] [place] [address] [place] Glucose [Mass/Vol] 155 mg/dL High 60-105 [facility] Comment on above: Order Comment: Speci men Type: BLOOD SPECIMEN Ordering Facility: [facility] Address: [address] [place] [address] Performed By: #### S LACTR #### [facility] CLIA [id number] [address] [place] [address] [place] HCO3 (Bld) [Moles/Vol] 27 mmol/L High 22-26 [facility] Comment on above: Order Comment: Speci men Type: BLOOD SPECIMEN Ordering Facility: [facility] Address: [address] [place] [address] Performed By: #### S LACTR #### [facility] CLIA [id number] [address] [place] [address] [place] Hemoglobin (Bld) [Mass/Vol] 12.5 g/dL Normal 11.5-15.5 [facility] Comment on above: Order Comment: Speci men Type: BLOOD SPECIMEN Ordering Facility: [facility] Address: [address] [place] [address] Performed By: #### S LACTR #### [facility] CLIA [id number] [address] [place] [address] [place] Lactate [Moles/Vol] 0.8 mmol/L Normal 0.5-2.2 [facility] Comment on above: Order Comment: Speci men Type: BLOOD SPECIMEN Ordering Facility: [facility] Address: [address] [place] [address] Performed By: #### S LACTR #### [facility] [place] [id number] [address] [place] [address] [place] LITERS 12 Liters/min Normal [facility] Comment on above: Order Comment: Speci men Type: BLOOD SPECIMEN Ordering Facility: [facility] Address: [address] [place] [address] Performed By: #### S LACTR #### [facility] CLIA [id number] [address] [place] [address] [place] Methemoglobin (Bld) [Mass fraction] 0.2 % Normal 0.0-1.5 [facility] Comment on above: Order Comment: Speci men Type: BLOOD SPECIMEN Ordering Facility: [facility] Address: [address] [place] [address] Performed By: #### S LACTR #### [facility] CLIA [id number] [address] [place] [address] [place] O2 THERAPY [place] Humid = Nasal Cannula-Humidified (7-15 LPM) Normal [facility] Comment on above: Order Comment: Speci men Type: BLOOD SPECIMEN Ordering Facility: [facility] Address: [address] [place] [address] Performed By: #### S LACTR #### [facility] CLIA [id number] [address] [place] [address] [place] Oxygen (Bld) [Partial pressure] 68 mm Hg Low 85-95 [facility] Comment on above: Order Comment: Speci men Type: BLOOD SPECIMEN Ordering Facility: [facility] Address: [address] [place] [address] Performed By: #### S LACTR #### [facility] CLIA [id number] [address] [place] [address] [place] Oxyhemoglobin (BldA) [Mass fraction] 93 % Low 95-98 [facility] Comment on above: Order Comment: Speci men Type: BLOOD SPECIMEN Ordering Facility: [facility] Address: [address] [place] [address] Performed By: #### S LACTR #### [facility] CLIA [id number] [address] [place] [address] [place] pH (Bld) 7.47 [pH] High 7.35-7.45 [facility] Comment on above: Order Comment: Speci men Type: BLOOD SPECIMEN Ordering Facility: [facility] Address: [address] [place] [address] Performed By: #### S LACTR #### [facility] CLIA [id number] [address] [place] [address] [place] Potassium [Moles/Vol] 4.4 mmol/L Normal 2.5-6.0 [facility] Comment on above: Order Comment: Speci men Type: BLOOD SPECIMEN Ordering Facility: [facility] Address: [address] [place] [address] Performed By: #### S LACTR #### [facility] CLIA [id number] [address] [place] [address] [place] Sodium [Moles/Vol] 135 mmol/L Low 136-144 [facility] Comment on above: Order Comment: Speci men Type: BLOOD SPECIMEN Ordering Facility: [facility] Address: [address] [place] [address] Performed By: #### S LACTR #### [facility] CLIA [id number] [address] [place] [address] [place] Basic metabolic 2000 panelon 03-19-2025 Anion gap [Moles/Vol] 10 mmol/L Normal 5-16 [facility] Comment on above: Order Comment: Speci men Type: BLOOD SPECIMEN Ordering Facility: [facility] Address: [address] [place] [address] Performed By: #### 3 4528-0, 17970-5 #### [facility] CLIA [id number] [address] [place] [address] [place] Calcium [Mass/Vol] 9.4 mg/dL Normal 8.5-10.5 [facility] Comment on above: Order Comment: Speci men Type: BLOOD SPECIMEN Ordering Facility: [facility] Address: [address] [place] [address] Performed By: #### 3 4528-0, 88575-2 #### [facility] CLIA [id number] [address] [place] [address] [place] Chloride [Moles/Vol] 100 mmol/L Normal 98-107 [facility] Comment on above: Order Comment: Speci men Type: BLOOD SPECIMEN Ordering Facility: [facility] Address: [address] [place] [address] Performed By: #### 3 4528-0, 54449-9 #### [facility] CLIA [id number] [address] [place] [address] [place] CO2 [Moles/Vol] 28 mmol/L Normal 21-32 [facility] Comment on above: Order Comment: Speci men Type: BLOOD SPECIMEN Ordering Facility: [facility] Address: [address] [place] [address] Performed By: #### 3 4528-0, 78866-6 #### [facility] CLIA [id number] [address] [place] [address] [place] Creatinine [Mass/Vol] 0.57 mg/dL Normal 0.51-0.95 [facility] Comment on above: Order Comment: Speci men Type: BLOOD SPECIMEN Ordering Facility: [facility] Address: [address] [place] [address] Result Comment: Gretta ents receiving either N-Acetylcysteine (NAC) or Metamizole prior to venipuncture, may have falsely depressed results. Performed By: #### 3 4528-0, 12912-6 #### [facility] CLIA [id number] [address] [place] [address] [place] Creatinine and Glomerular filtration rate.predicted panel (S/P/Bld) 104 mL/min/1.73m??? Normal >=60 [facility] Comment on above: Order Comment: Reggie fajardo Type: BLOOD SPECIMEN Ordering Facility: [facility] Address: [address] [place] [address] Result Comment: Pavan mated Glomerular Filtration Rate [...] actual GFR. Performed By: #### 3 4528-0, 89617-9 #### [facility] CLIA [id number] [address] [place] [address] [place] Glucose [Mass/Vol] 102 mg/dL High 70-100 [facility] Comment on above: Order Comment: eRggie fajardo Type: BLOOD SPECIMEN Ordering Facility: [facility] Address: [address] [place] [address] Result Comment: The [place] [employer] (ADA) provides guidance for cutoff [...] Standards of Medical Care in Diabetes 2016, [place] [employer]. Diabetes Care. 2016.39(Suppl 1). Results may be falsely elevated after the administration of Sulfapyridine. Results may be falsely depressed after the administration of Sulfasalazine. Performed By: #### 3 4528-0, 42374-4 #### [facility] CLIA [id number] [address] [place] [address] [place] Potassium [Moles/Vol] 4.4 mmol/L Normal 3.5-5.1 [facility] Comment on above: Order Comment: Reggie fajardo Type: BLOOD SPECIMEN Ordering Facility: [facility] Address: [address] [place] [address] Performed By: #### 3 4528-0, 00148-4 #### [facility] CLIA [id number] [address] [place] [address] [place] Sodium [Moles/Vol] 138 mmol/L Normal 136-145 [facility] Comment on above: Order Comment: Reggie fajardo Type: BLOOD SPECIMEN Ordering Facility: [facility] Address: [address] [place] [address] Performed By: #### 3 4528-0, 83373-2 #### [facility] CLIA [id number] [address] [place] [address] [place] Urea nitrogen [Mass/Vol] 10 mg/dL Normal 7-26 [facility] Comment on above: Order Comment: Reggie fajardo Type: BLOOD SPECIMEN Ordering Facility: [facility] Address: [address] [place] [address] Performed By: #### 3 4528-0, 67017-5 #### [facility] CLIA [id number] [address] [place] [address] [place] CBC panel Auto (Bld)on 03-19 Erythrocyte distribution width (RBC) [Ratio] 15.1 % High 11.5-15.0 [facility] Comment on above: Order Comment: Reggie fajardo Type: BLOOD SPECIMEN Ordering Facility: [facility] Address: [address] [place] [address] Performed By: #### 3 4528-0, 32069-2 #### [facility] CLIA [id number] [address] [place] [address] [facility] [place] Hematocrit (Bld) [Volume fraction] 33.0 % Low 36.0-46.0 [facility] Comment on above: Order Comment: Speci men Type: BLOOD SPECIMEN Ordering Facility: [facility] Address: [address] [place] [address] Performed By: #### 3 4528-0, 42339-3 #### [facility] CLIA [id number] [address] [place] [address] [place] Hemoglobin (Bld) [Mass/Vol] 10.1 g/dL Low 11.5-15.5 [facility] Comment on above: Order Comment: Speci men Type: BLOOD SPECIMEN Ordering Facility: [facility] Address: [address] [place] [address] Performed By: #### 3 4528-0, 77579-6 #### [facility] CLIA [id number] [address] [place] [address] [place] MCH (RBC) [Entitic mass] 26.5 pg Normal 26.0-34.0 [facility] Comment on above: Order Comment: Speci men Type: BLOOD SPECIMEN Ordering Facility: [facility] Address: [address] [place] [address] Performed By: #### 3 4528-0, 25884-0 #### [facility] CLIA [id number] [address] [place] [address] [place] MCHC (RBC) [Mass/Vol] 30.6 g/dL Normal 30.5-36.0 [facility] Comment on above: Order Comment: Speci men Type: BLOOD SPECIMEN Ordering Facility: [facility] Address: [address] [place] [address] Performed By: #### 3 4528-0, 50695-1 #### [facility] CLIA [id number] [address] [place] [address] [place] MCV (RBC) [Entitic vol] 86.6 fL Normal 80.0-100.0 [facility] Comment on above: Order Comment: Speci men Type: BLOOD SPECIMEN Ordering Facility: [facility] Address: [address] [place] [address] Performed By: #### 3 4528-0, 52637-2 #### [facility] CLIA [id number] [address] [place] [address] [place] Nucleated RBC (Bld) [#/Vol] 10*3/uL Normal <0.01 [facility] Comment on above: Order Comment: Speci men Type: BLOOD SPECIMEN Ordering Facility: [facility] Address: [address] [place] [address] Performed By: #### 3 4528-0, 63364-5 #### [facility] CLIA [id number] [address] [place] [address] [place] Platelet mean volume (Bld) [Entitic vol] 9.9 fL Normal 9.0-12.7 [facility] Comment on above: Order Comment: Speci men Type: BLOOD SPECIMEN Ordering Facility: [facility] Address: [address] [place] [address] Performed By: #### 3 4528-0, 55545-9 #### [facility] CLIA [id number] [address] [place] [address] [place] Platelets (Bld) [#/Vol] 397 10*3/uL Normal 150-400 [facility] Comment on above: Order Comment: Speci men Type: BLOOD SPECIMEN Ordering Facility: [facility] Address: [address] [place] [address] Performed By: #### 3 4528-0, 52920-4 #### [facility] CLIA [id number] [address] [place] [address] [place] RBC (Bld) [#/Vol] 3.81 10*6/uL Low 3.90-5.20 [facility] Comment on above: Order Comment: Speci men Type: BLOOD SPECIMEN Ordering Facility: [facility] Address: [address] [place] [address] Performed By: #### 3 4528-0, 36933-7 #### [facility] CLIA [id number] [address] [place], [place] [address] [place] WBC (Bld) [#/Vol] 14.59 10*3/uL High 3.70-11.00 [facility] Comment on above: Order Comment: Speci men Type: BLOOD SPECIMEN Ordering Facility: [facility] Address: [address] [place] [address] Performed By: #### 3 4528-0, 20761-6 #### [facility] CLIA [id number] [address] [place], [place] [address] [facility] CONSULT PROGon 03-19-2025 CONSULT PROG HNO ID: [id number] Author: BEENA MORTON RPh Service: Pharmacy Author [...] results found for: FELTON MORTON, PHARMACIST, [facility] CTA CHEST (NONGATED) W IVCON on 03-19-2025 CTA CHEST (NONGATED) W IVCON * * *Final Report* * * DATE OF EXAM: Mar 19 2025 10:16PM [facility] 0123 - CTA CHEST (NONGATED) W IVCON [...] previous exam. 4. Moderate to advanced emphysema. Photo Optics Technician: BABATUNDE Transcribe Date/Time: Mar 19 2025 11:10P Dictated by : DEBORAH PARK MD This examination was interpreted and the report reviewed and electronically signed by: DEBORAH PARK MD on Mar 19 2025 11:29PM EST [id number] Normal [facility] ECG COMPLETEon 03-19-2025 ECG COMPLETE Ventricular Rate : 1 26 BPM Atrial Rate : 126 BPM P-R Interval : 174 ms QRS Duration : 78 ms Q-T Interval : 316 ms QTC Calculation(Bazett) : 457 ms Calculated P Dodge : 77 degrees Calculated R Dodge : 67 degrees Calculated T Dodge : 63 degrees Sinus tachycardia Minimal voltage criteria for LVH, may be normal variant ( Cordell product ) Septal infarct , age undetermined Abnormal ECG No previous ECGs available Confirmed by TASNEEM BALDWIN MD ([id number]) on 04/19/2025 4:38:09 PM NAME : GRACIE BANUELOS PID : [id number] : 1965 Gender : Female Race : ORD : [id number] Procedure Date : Mar 19 2025 15:33:31 Edit Date : Apr 19 2025 16:38:12 Diagnosis: Sinus tachycardia Minimal voltage criteria for LVH, may be normal variant ( Grady product ) Septal infarct , age undetermined Abnormal ECG No previous ECGs available Confirmed by TASNEEM BALDWIN MD ([id number]) on 04/19/2025 4:38:09 PM Test Reason : HCS Location : 8 : [facility] Overread By : TASNEEM BALDWIN MD Edited By : TASNEEM BALDWIN MD Referred By : MACARIO FELIZ Acquired by : 7, Normal [facility] HIGH SENSITIVITY TROPONIN Io n 03-19-2025 Tropinin I.cardiac panel High sensitivity method 7.4 pg/mL Normal 0.0-34.0 [facility] Comment on above: Order Comment: Speci men Type: BLOOD SPECIMEN Ordering Facility: [facility] Address: [address] [place] [address] Performed By: #### 3 4528-0, 68552-8 #### [facility] CLIA [id number] [address] [place] [address] MEDICAL EMERon 03-19-2025 MEDICAL FREYA HNO ID: [id number] Author: CANDIE HORTA APRN.CNP Service: Critical Care [...] and was aware. CCT: 17 min Normal [facility] Magnesium SerPl-mCncon 03-19 Magnesium [Mass/Vol] 1.8 mg/dL Normal 1.6-2.6 [facility] Comment on above: Order Comment: Reggie fajardo Type: BLOOD SPECIMEN Ordering Facility: [facility] Address: [address] [place] [address] Performed By: #### 3 4528-0, 76451-7 #### [facility] CLIA [id number] [address] [place] [address] [place] [facility] Natriuretic peptide.B prohormone N-Terminal [Mass/Vol] 3517 pg/mL High <125 [facility] Comment on above: Order Comment: Reggie fajardo Type: BLOOD SPECIMEN Ordering Facility: [facility] Address: [address] [place] [address] Result Comment: NT-p roBNP results of less than 300 pg/mL likely rules out acute congestive heart failure with 99% predictive value. NOTE: These cutoff points are suggested for ACUTE CHF DIAGNOSIS only Less than 50 years\X09\ Greater than 450 pg/mL 50 - 75 years\X09\\X09\ Greater than 900 pg/mL Greater than 75 years\X09\ Greater than 1800 pg/mL Performed By: #### 3 4528-0, 33278-9 #### [facility] CLIA [id number] [address] [place] [address] [place] Procalcitonin SerPl-mCncon 0 03-19-2025 Procalcitonin [Mass/Vol] 1.51 ng/mL High 0.00-0.50 [facility] Comment on above: Order Comment: Reggie fajardo Type: BLOOD SPECIMEN Ordering Facility: [facility] Address: [address] [place] [address] Result Comment: PCT Concentration Interpretation PCT <=0.1 [...] septic shock. Performed By: #### 3 4528-0, 08378-0 #### [facility] CLIA [id number] [address] [place] [address] [place] STAPHYLOCOCCUS AUREUS AND MR SA SCREEN, PCR, NASALon 03-19-2025 S. aureus and MRSA panel KANDY+probe (Nose) Methicillin-SUSCEPTIBLE Staphylococcus aureus Detected Abnormal Not Detected [facility] Comment on above: Order Comment: Speci men Type: BLOOD SPECIMEN Ordering Facility: [facility] Address: [address] [place] [address] Performed By: #### S LACTR #### [facility] CLIA [id number] [address] [place], [place] [address] [place] XR CHEST 1V [...] residual basilar and retrocardiac opacity. Dictated by A Class Lineman: Daniel Castro DO I, Jose Guadalupe Morocho MD, have supervised the procedure and/or image review, and agree with the above interpretation and report. Photo Optics Technician: PSCB Transcribe Date/Time: Mar 19 2025 3:35P Dictated by : DANIEL CASTRO DO This examination was interpreted and the report reviewed and electronically signed by: JOSE GUADALUPE MOROCHO MD on Mar 19 2025 3:41PM EST [id number] Normal [facility] Basic metabolic 2000 panelon 03-18-2025 Anion gap [Moles/Vol] 10 mmol/L Normal 5-16 [facility] Comment on above: Order Comment: Speci men Type: BLOOD SPECIMENOrdering Facility: [facility] Address: [address] [place] [address] Performed By: #### 2 4321-2, 63415-5, 2777-1, 6-4, 22516-8 ####[facility] [id number] [place] [id number] [place] Calcium [Mass/Vol] 9.1 mg/dL Normal 8.5-10.5 [facility] Comment on above: Order Comment: Speci men Type: BLOOD SPECIMENOrdering Facility: [facility] Address: [address] [place] [address] Performed By: #### 2 4321-2, 44913-1, 277-1, 6-4, 15156-9 ####[facility] [id number] [place] [id number] [place] Chloride [Moles/Vol] 101 mmol/L Normal 98-107 [facility] Comment on above: Order Comment: Speci men Type: BLOOD SPECIMENOrdering Facility: [facility] Address: [address] [place], [place] [address] Performed By: #### 2 4321-2, 11165-1, 277-1, 6-4, 31335-9 ####[facility] [id number] [place] [address] [place] CO2 [Moles/Vol] 31 mmol/L Normal 21-32 [facility] Comment on above: Order Comment: Speci men Type: BLOOD SPECIMENOrdering Facility: [facility] Address: [address] [place] [address] Performed By: #### 2 4321-2, 06993-5, 2777-1, 6-4, 89052-7 ####[facility] [id number] [place] [address] [place] Creatinine [Mass/Vol] 0.52 mg/dL Normal 0.51-0.95 [facility] Comment on above: Order Comment: Reggie fajardo Type: BLOOD SPECIMENOrdering Facility: [facility] Address: [address] [place] [address] Result Comment: Gretta ents receiving either N-Acetylcysteine (NAC) or Metamizole prior to venipuncture, may have falsely depressed results. Performed By: #### 2 4321-2, 36073-8, 2776-, 2275-4, 57808-3 ####[facility] [id number] [place] [id number] [place] Creatinine and Glomerular filtration rate.predicted panel (S/P/Bld) 106 mL/min/1.73m??? Normal >=60 [facility] Comment on above: Order Comment: Reggie fajardo Type: BLOOD SPECIMENOrdering Facility: [facility] Address: [address] [place] [address] Result Comment: Pavan mated Glomerular Filtration Rate [...] actual GFR. Performed By: #### 2 4321-2, 62247-2, 2777-1, 6-4, 19276-6 ####[facility]IA [id number] [place] [address] [place] Glucose [Mass/Vol] 103 mg/dL High 70-100 [facility] Comment on above: Order Comment: Reggie fajardo Type: BLOOD SPECIMENOrdering Facility: [facility] Address: [address] [place], [place] [address] Result Comment: The [place] Diabetes Association (ADA) provides guidance for cutoff [...] Standards of Medical Care in Diabetes 2016, [place] [employer]. Diabetes Care. 2016.39(Suppl 1). Results may be falsely elevated after the administration of Sulfapyridine. Results may be falsely depressed after the administration of Sulfasalazine. Performed By: #### 2 4321-2, 30920-1, 2777-1, 6-4, 08462-1 ####[facility] [id number] [place] [address] [place] Potassium [Moles/Vol] 3.5 mmol/L Normal 3.5-5.1 [facility] Comment on above: Order Comment: Reggie fajardo Type: BLOOD SPECIMENOrdering Facility: [facility] Address: [address] [place], [place] [address] Performed By: #### 2 4321-2, 45389-7, 2777-1, 6-4, 00305-7 ####[facility]IA [id number] [place] [address] [place] Sodium [Moles/Vol] 142 mmol/L Normal 136-145 [facility] Comment on above: Order Comment: Reggie fajardo Type: BLOOD SPECIMENOrdering Facility: [facility] Address: [address] [place], [place] [address] Performed By: #### 2 4321-2, 43083-0, 2777-1, 6-4, 42612-5 ####[facility]ORY[facility]IA [id number] [place] [address] [place] Urea nitrogen [Mass/Vol] 10 mg/dL Normal 04-22 [facility] Comment on above: Order Comment: Speci men Type: BLOOD SPECIMENOrdering Facility: [facility] Address: [address] [place] [address] Performed By: #### 2 4321-2, 06981-9, 2777-1, 2276-4, 94644-3 ####[facility] [id number] [place] [address] [place] C diff Tox gens Stl Ql KANDY+p robeon 03-18-2025 C. difficile toxin genes KANDY+probe Ql (Stl) Negative Normal Negative for C. difficile toxin by PCR [facility] Comment on above: Order Comment: Speci men Type: BLOOD SPECIMEN Ordering Facility: [facility] Address: [address] [place] [address] Performed By: #### 3 4528-0, 23991-3 #### [facility] CLIA [id number] [facility] [place] [address] [place] CBC panel Auto (Bld)on 03-18 Erythrocyte distribution width (RBC) [Ratio] 15.1 % High 11.5-15.0 [facility] Comment on above: Order Comment: Speci men Type: BLOOD SPECIMENOrdering Facility: [facility] Address: [address] [place] [address] Performed By: #### 5 8410-2 ####[facility]IA [id number] [address] [place] Hematocrit (Bld) [Volume fraction] 29.5 % Low 36.0-46.0 [facility] Comment on above: Order Comment: Speci men Type: BLOOD SPECIMENOrdering Facility: [facility] Address: [address] [place] [address] Performed By: #### 5 8410-2 ####[facility]ORY[facility]IA [id number] [address] [place] Hemoglobin (Bld) [Mass/Vol] 9.2 g/dL Low 11.5-15.5 [facility] Comment on above: Order Comment: Speci men Type: BLOOD SPECIMENOrdering Facility: [facility] Address: [address] [place] [address] Performed By: #### 5 8410-2 ####[facility]ORYCLIA [id number] [address] MCH (RBC) [Entitic mass] 26.7 pg Normal 26.0-34.0 [facility] Comment on above: Order Comment: Speci men Type: BLOOD SPECIMENOrdering Facility: [facility] Address: [address] [place] [address] Performed By: #### 5 8410-2 ####[facility]ORYCLIA [id number] [address] [place] MCHC (RBC) [Mass/Vol] 31.2 g/dL Normal 30.5-36.0 [facility] Comment on above: Order Comment: Speci men Type: BLOOD SPECIMENOrdering Facility: [facility] Address: [address] [place] [address] Performed By: #### 5 8410-2 ####[facility]ORYCLIA [id number] [address] [place] MCV (RBC) [Entitic vol] 85.5 fL Normal 80.0-100.0 [facility] Comment on above: Order Comment: Speci men Type: BLOOD SPECIMENOrdering Facility: [facility] Address: [address] [place] [address] Performed By: #### 5 8410-2 ####[facility]ORYCLIA [id number] [address] Nucleated RBC (Bld) [#/Vol] 10*3/uL Normal <0.01 [facility] Comment on above: Order Comment: Speci men Type: BLOOD SPECIMENOrdering Facility: [facility] Address: [address] [place] [address] Performed By: #### 5 8410-2 ####[facility]ORYCLIA [id number] [place] [id number] [place] Platelet mean volume (Bld) [Entitic vol] 9.8 fL Normal 9.0-12.7 [facility] Comment on above: Order Comment: Speci men Type: BLOOD SPECIMENOrdering Facility: [facility] Address: [address] [place] [address] Performed By: #### 5 8410-2 ####[facility]ORYCLIA [id number] [place] [id number] [place] Platelets (Bld) [#/Vol] 332 10*3/uL Normal 150-400 [facility] Comment on above: Order Comment: Speci men Type: BLOOD SPECIMENOrdering Facility: [facility] Address: [address] [place] [address] Performed By: #### 5 8410-2 ####[facility]ORYCLIA [id number] [place] [id number] [place] RBC (Bld) [#/Vol] 3.45 10*6/uL Low 3.90-5.20 [facility] Comment on above: Order Comment: Speci men Type: BLOOD SPECIMENOrdering Facility: [facility] Address: [address] [place] [address] Performed By: #### 5 8410-2 ####[facility]ORYCLIA [id number] [place] [id number] [place] WBC (Bld) [#/Vol] 17.37 10*3/uL High 3.70-11.00 [facility] Comment on above: Order Comment: Speci men Type: BLOOD SPECIMENOrdering Facility: [facility] Address: [address] [place] [address] Performed By: #### 5 8410-2 ####[facility]ORYCLIA [id number] [place] [id number] [place] Calcium.ionized [Moles/Vol]o n 03-18-2025 Calcium.ionized (Bld) [Mass/Vol] 1.20 mmol/L Normal 1.08-1.30 [facility] Comment on above: Order Comment: Speci men Type: BLOOD SPECIMENOrdering Facility: [facility] Address: [address] [place] [address] Performed By: #### 1 995-0 ####[facility]ORYCLIA [id number] [place] [address] [place] Calcium.ionized adjusted to pH 7.4 (Bld) [Moles/Vol] 1.22 mmol/L Normal 1.08-1.30 [facility] Comment on above: Order Comment: Speci tana Type: BLOOD SPECIMENOrdering Facility: [facility] Address: [address] [place] [address] Performed By: #### 1 995-0 ####[facility]ORYCLIA [id number] [place] [address] [place] Ferritin SerPl-mCncon 2024 Ferritin [Mass/Vol] 203.9 ng/mL Normal 8.0-307.0 [facility] Comment on above: Order Comment: Speci tana Type: BLOOD SPECIMEN Ordering Facility: [facility] Address: [address] [place] [address] Performed By: #### 3 4528-0, 53854-9 #### [facility] CLIA [id number] [address] [place] [address] [place] Gastrointestinal pathogens p tuan KANDY+probe (Stl)on 03-18-2025 ADENOVIRUS F 40/41 DNA Not detected Normal Not Detecte d [facility] Comment on above: Order Comment: Reggie fajardo Type: BLOOD SPECIMEN Ordering Facility: [facility] Address: [address] [place] [address] Performed By: #### 3 4528-0, 86780-1 #### [facility] CLIA [id number] [address] [place] [address] [place] ASTROVIRUS RNA Not detected Normal Not Detected [facility] Comment on above: Order Comment: Speci men Type: BLOOD SPECIMEN Ordering Facility: [facility] Address: [address] [place] [address] Performed By: #### 3 4528-0, 43229-8 #### [facility] CLIA [id number] [address] [place] [address] [place] C. cayetanensis DNA KANDY+probe Ql (Unsp spec) Not detected Normal Not Detected [facility] Comment on above: Order Comment: Speci men Type: BLOOD SPECIMEN Ordering Facility: [facility] Address: [address] [place] [address] Performed By: #### 3 4528-0, 20119-4 #### [facility] CLIA [id number] [address] [place] [address] [place] Campylobacter sp DNA.diarrheagenic KANDY+probe Ql (Stl) Not detected Normal Not Detected [facility] Comment on above: Order Comment: Speci men Type: BLOOD SPECIMEN Ordering Facility: [facility] Address: [address] [place] [address] Performed By: #### 3 4528-0, 80127-3 #### [facility] CLIA [id number] [address] [place], [place] [address] [place] Cryptosporidium sp DNA KANDY+probe Ql (Unsp spec) Not detected Normal Not Detected [facility] Comment on above: Order Comment: Speci men Type: BLOOD SPECIMEN Ordering Facility: [facility] Address: [address] [place] [address] Performed By: #### 3 4528-0, 56664-9 #### [facility] CLIA [id number] [address] [place] [address] [place] E. coli O157:H7 DNA KANDY+probe Ql (Unsp spec) Not applicable Normal Not detected [facility] Comment on above: Order Comment: Speci men Type: BLOOD SPECIMEN Ordering Facility: [facility] Address: [address] [place] [address] Performed By: #### 3 4528-0, 14938-5 #### [facility] CLIA [id number] [address] [place] [address] [place] E. coli stx1+stx2 genes KANDY+probe Ql (Stl) Not detected Normal Not Detected [facility] Comment on above: Order Comment: Speci men Type: BLOOD SPECIMEN Ordering Facility: [facility] Address: [address] [place] [address] Performed By: #### 3 4528-0, 34031-5 #### [facility] CLIA [id number] [address] [place] [address] [place] E. histolytica DNA KANDY+probe Ql (Unsp spec) Not detected Normal Not Detected [facility] Comment on above: Order Comment: Speci men Type: BLOOD SPECIMEN Ordering Facility: [facility] Address: [address] [place] [address] Performed By: #### 3 4528-0, 10462-1 #### [facility] CLIA [id number] [address] [place] [address] OF [place] ENTEROAGGREGATIVE E. COLI (EAEC) DNA Not detected Normal Not Detected [facility] Comment on above: Order Comment: Speci men Type: BLOOD SPECIMEN Ordering Facility: [facility] Address: [address] [place] [address] Performed By: #### 3 4528-0, 92526-3 #### [facility] CLIA [id number] [address] [place] [address] [facility] [place] ENTEROPATHOGENIC E. COLI (EPEC) DNA Not detected Normal Not detected [facility] Comment on above: Order Comment: Speci men Type: BLOOD SPECIMEN Ordering Facility: [facility] Address: [address] [place] [address] Performed By: #### 3 4528-0, 64231-5 #### [facility] CLIA [id number] [address] [place] [address] [place] ENTEROTOXIGENIC E. COLI (ETEC) DNA Not detected Normal Not Detected [facility] Comment on above: Order Comment: Speci men Type: BLOOD SPECIMEN Ordering Facility: [facility] Address: [address] [place] [address] Performed By: #### 3 4528-0, 01736-1 #### [facility] CLIA [id number] [address] [place] [address] [place] G. lamblia DNA KANDY+probe Ql (Unsp spec) Not detected Normal Not Detected [facility] Comment on above: Order Comment: Speci men Type: BLOOD SPECIMEN Ordering Facility: [facility] Address: [address] [place] [address] Performed By: #### 3 4528-0, 93470-7 #### [facility] CLIA [id number] [address] [place] [address] NOROVIRUS GI/GII RNA Detected Abnormal Not Detected [facility] Comment on above: Order Comment: Speci men Type: BLOOD SPECIMEN Ordering Facility: [facility] Address: [address] [place] [address] Result Comment: The NeXeption Filmarray Gastrointestinal Panel has known specificity limitations for norovirus detection. False positives are more likely when prevalence is low (ie. summer). Standalone norovirus PCR (SQNORPCR) is available if confirmation is desired. Performed By: #### 3 4528-0, 45453-9 #### [facility] CLIA [id number] [address] [place] [address] [place] PLESIOMONAS SHIGELLOIDES DNA Not detected Normal Not Detected [facility] Comment on above: Order Comment: Speci men Type: BLOOD SPECIMEN Ordering Facility: [facility] Address: [address] [place] [address] Performed By: #### 3 4528-0, 37400-5 #### [facility] CLIA [id number] [address] [place] [address] [place] ROTAVIRUS A RNA Not detected Normal Not Detected [facility] Comment on above: Order Comment: Speci men Type: BLOOD SPECIMEN Ordering Facility: [facility] Address: [address] [place] [address] Performed By: #### 3 4528-0, 02179-2 #### [facility] CLIA [id number] [address] [place] [address] [facility] [place] Salmonella sp DNA KANDY+probe Ql (Unsp spec) Not detected Normal Not Detected [facility] Comment on above: Order Comment: Speci men Type: BLOOD SPECIMEN Ordering Facility: [facility] Address: [address] [place] [address] Performed By: #### 3 4528-0, 13545-3 #### [facility] CLIA [id number] [address] [place] [address] [place] SAPOVIRUS (GENOGROUPS I, II, IV, V) RNA Not detected Normal Not Detected [facility] Comment on above: Order Comment: Speci men Type: BLOOD SPECIMEN Ordering Facility: [facility] Address: [address] [place] [address] Performed By: #### 3 4528-0, 33545-1 #### [facility] CLIA [id number] [address] [place] [address] [place] Shigella species+EIEC invasion plasmid antigen H ipaH gene KANDY+probe Ql (Stl) Not detected Normal Not Detected [facility] Comment on above: Order Comment: Speci men Type: BLOOD SPECIMEN Ordering Facility: [facility] Address: [address] [place] [address] Performed By: #### 3 4528-0, 66076-2 #### [facility] CLIA [id number] [address] [place] [address] [place] V. cholerae DNA KANDY+probe Ql (Unsp spec) Not detected Normal Not Detected [facility] Comment on above: Order Comment: Speci men Type: BLOOD SPECIMEN Ordering Facility: [facility] Address: [address] [place] [address] Performed By: #### 3 4528-0, 52413-6 #### [facility] CLIA [id number] [address] [place] [address] [place] Vibrio sp DNA KANDY+probe Nom (Unsp spec) Not detected Normal Not Detected [facility] Comment on above: Order Comment: Speci men Type: BLOOD SPECIMEN Ordering Facility: [facility] Address: [address] [place] [address] Performed By: #### 3 4528-0, 66636-1 #### [facility] CLIA [id number] [address] [place] [address] STATES OF [facility] Yersinia sp DNA KANDY+probe Nom (Unsp spec) Not detected Normal Not Detected [facility] Comment on above: Order Comment: Speci men Type: BLOOD SPECIMEN Ordering Facility: [facility] Address: [address] [place] [address] Performed By: #### 3 4528-0, 27220-4 #### [facility] CLIA [id number] [address] [place] [address] [place] Iron and Iron binding capaci ty panelon 03-18-2025 Iron [Mass/Vol] 16 ug/dL Low 50-170 [facility] Comment on above: Order Comment: Speci men Type: BLOOD SPECIMEN Ordering Facility: [facility] Address: [address] [place] [address] Result Comment: Gretta ents treated with metal-binding drugs (e.g.deferoxamine) may have depressed iron values, as chelated iron may not properly react in the Siemens iron assay. Performed By: #### 3 4528-0, 12532-1 #### [facility] CLIA [id number] [address] [place] [address] [place] Iron binding capacity [Mass/Vol] 203 ug/dL Low 221-481 [facility] Comment on above: Order Comment: Speci men Type: BLOOD SPECIMEN Ordering Facility: [facility] Address: [address] [place] [address] Performed By: #### 3 4528-0, 66074-5 #### [facility] CLIA [id number] [address] [place] [address] [place] Iron/TIBC [Molar ratio] 7.9 % Low 22.0-44.0 [facility] Comment on above: Order Comment: Reggie fajardo Type: BLOOD SPECIMEN Ordering Facility: [facility] Address: [address] [place], [place] [address] Performed By: #### 3 4528-0, 81579-3 #### [facility] CLIA [id number] [address] [place], [place] [address] [facility] Magnesium SerPl-ncon 03-18 Magnesium [Mass/Vol] 1.6 mg/dL Normal 1.6-2.6 [facility] Comment on above: Order Comment: Reggie fajardo Type: BLOOD SPECIMEN Ordering Facility: [facility] Address: [address] [place] [address] Performed By: #### 3 4528-0, 80466-4 #### [facility] CLIA [id number] [address] [place] [address] NURSING PROGon 03-18-2025 NURSING PROG HNO ID: [id number] Author: RINKU STERN RN Service: Nursing Author Type: Registered Nurse Type: Nursing Progress Note Filed: 03/18/2025 10:54 Note Text: Other: Patient Med Rec incomplete on transfer, Nurse Colleen Notified on 7m, patient unsure of medications, asked sister (Domonique) to bring in list from home. Report called, all questions answered. Normal [facility] Phosphate SerPl-ncon 03-18 Phosphate [Mass/Vol] 3.8 mg/dL Normal 2.5-4.9 [facility] Comment on above: Order Comment: Reggie fajardo Type: BLOOD SPECIMEN Ordering Facility: [facility] Address: [address] [place] [address] Result Comment: DELT A CHECK&XA&Delta Check Reviewed Elevated m-protein (paraprotein) levels in the serum may be exhibited in patients with monoclonal gammopathies, causing falsely elevated inorganic phosphorus results. Performed By: #### 3 4528-0, 87873-5 #### [facility] CLIA [id number] [address] [place], [place] [address] [place] Respiratory Cultureon 2024 RESPC Normal [facility] Comment on above: Performed By: #### M 100.2000, M100.2400 ####[facility] [id number] [place], [address] Basic metabolic 2000 panelon 03-17-2025 Anion gap [Moles/Vol] 4 mmol/L Low 5-16 [facility] Comment on above: Order Comment: Speci men Type: BLOOD SPECIMENOrdering Facility: [facility] Address: [address] [place], [place] [address] Performed By: #### 2 4321-2, , 2776-09 ####[facility]ORY[facility] [id number] [place] [id number] [place] Calcium [Mass/Vol] 9.0 mg/dL Normal 8.5-10.5 [facility] Comment on above: Order Comment: Speci men Type: BLOOD SPECIMENOrdering Facility: [facility] Address: [address] [place], [place] [address] Performed By: #### 2 4321-2, , 2776-09 ####[facility]ORY[facility] [id number] [place] [address] [place] Chloride [Moles/Vol] 104 mmol/L Normal 98-107 [facility] Comment on above: Order Comment: Speci men Type: BLOOD SPECIMENOrdering Facility: [facility] Address: [address] [place] [address] Performed By: #### 2 4321-2, , 2776-09 ####[facility]ORY[facility] [id number] [place] [id number] [place] CO2 [Moles/Vol] 32 mmol/L Normal 21-32 [facility] Comment on above: Order Comment: Speci men Type: BLOOD SPECIMENOrdering Facility: [facility] Address: [address] [place] [address] Performed By: #### 2 4321-2, , 2776-09 ####[facility]ORYCLIA [id number] [place] [address] [place] Creatinine [Mass/Vol] 0.65 mg/dL Normal 0.51-0.95 [facility] Comment on above: Order Comment: Reggie fajardo Type: BLOOD SPECIMENOrdering Facility: [facility] Address: [address] [place] [address] Result Comment: Gretta ents receiving either N-Acetylcysteine (NAC) or Metamizole prior to venipuncture, may have falsely depressed results. Performed By: #### 2 4321-2, , 2776-09 ####[facility]ORY[facility]IA [id number] [address] Creatinine and Glomerular filtration rate.predicted panel (S/P/Bld) 100 mL/min/1.73m??? Normal >=60 [facility] Comment on above: Order Comment: Reggie fajardo Type: BLOOD SPECIMENOrdering Facility: [facility] Address: [address] [place] [address] Result Comment: Pavan mated Glomerular Filtration Rate [...] actual GFR. Performed By: #### 2 4321-2, 92747-1, 2776-09 ####[facility]ORY[facility] [id number] [place] [id number] [place] Glucose [Mass/Vol] 179 mg/dL High 70-100 [facility] Comment on above: Order Comment: Reggie fajardo Type: BLOOD SPECIMENOrdering Facility: [facility] Address: [address] [place] [id number] Result Comment: The [place] Diabetes Association (ADA) provides guidance for cutoff [...] Standards of Medical Care in Diabetes 2016, [place] [employer]. Diabetes Care. 2016.39(Suppl 1). Results may be falsely elevated after the administration of Sulfapyridine. Results may be falsely depressed after the administration of Sulfasalazine. Performed By: #### 2 4321-2, , 2776-09 ####[facility]ORYCLIA [id number] [place] [address] [place] Potassium [Moles/Vol] 2.4 mmol/L Critically low 3.5-5.1 [facility] Comment on above: Order Comment: Reggie fajardo Type: BLOOD SPECIMENOrdering Facility: [facility] Address: [address] [place] [address] Result Comment: CRIT ICAL Performed By: #### 2 4321-2, , 2776-09 ####[facility]ORYCLIA [id number] [place] [address] [place] Sodium [Moles/Vol] 140 mmol/L Normal 136-145 [facility] Comment on above: Order Comment: Reggie fajardo Type: BLOOD SPECIMENOrdering Facility: [facility] Address: [address] [place] [address] Performed By: #### 2 4321-2, , 2776-09 ####[facility]ORYCLIA [id number] [place] [id number] [place] Urea nitrogen [Mass/Vol] 11 mg/dL Normal 7-26 [facility] Comment on above: Order Comment: Reggie fajardo Type: BLOOD SPECIMENOrdering Facility: [facility] Address: [address] [place] [id number] Performed By: #### 2 4321-2, , 2776-09 ####[facility]ORYCLIA [id number] [address] OF [facility] CBC panel Auto (Bld)on 03-17 Erythrocyte distribution width (RBC) [Ratio] 14.6 % Normal 11.5-15.0 [facility] Comment on above: Order Comment: Speci men Type: BLOOD SPECIMENOrdering Facility: [facility] Address: [address] [place] [address] Performed By: #### 5 8410-2 ####[facility]ORYCLIA [id number] [address] Hematocrit (Bld) [Volume fraction] 29.9 % Low 36.0-46.0 [facility] Comment on above: Order Comment: Speci men Type: BLOOD SPECIMENOrdering Facility: [facility] Address: [address] [place] [address] Performed By: #### 5 8410-2 ####[facility]ORYCLIA [id number] [address] Hemoglobin (Bld) [Mass/Vol] 9.3 g/dL Low 11.5-15.5 [facility] Comment on above: Order Comment: Speci men Type: BLOOD SPECIMENOrdering Facility: [facility] Address: [address] [place] [address] Performed By: #### 5 8410-2 ####[facility]ORYCLIA [id number] [address] [place] MCH (RBC) [Entitic mass] 26.4 pg Normal 26.0-34.0 [facility] Comment on above: Order Comment: Speci men Type: BLOOD SPECIMENOrdering Facility: [facility] Address: [address] [place] [address] Performed By: #### 5 8410-2 ####[facility]ORYCLIA [id number] [address] STATES [facility] MCHC (RBC) [Mass/Vol] 31.1 g/dL Normal 30.5-36.0 [facility] Comment on above: Order Comment: Speci men Type: BLOOD SPECIMENOrdering Facility: [facility] Address: [address] [place] [address] Performed By: #### 5 8410-2 ####[facility]ORYCLIA [id number] [place] [id number] [facility] [place] MCV (RBC) [Entitic vol] 84.9 fL Normal 80.0-100.0 [facility] Comment on above: Order Comment: Speci men Type: BLOOD SPECIMENOrdering Facility: [facility] Address: [address] [place] [address] Performed By: #### 5 8410-2 ####[facility]ORYCLIA [id number] [address] [place] Nucleated RBC (Bld) [#/Vol] 10*3/uL Normal <0.01 [facility] Comment on above: Order Comment: Speci men Type: BLOOD SPECIMENOrdering Facility: [facility] Address: [address] [place] [address] Performed By: #### 5 8410-2 ####[facility]ATORYCLIA [id number] [place] [address] [place] Platelet mean volume (Bld) [Entitic vol] 10.4 fL Normal 9.0-12.7 [facility] Comment on above: Order Comment: Speci men Type: BLOOD SPECIMENOrdering Facility: [facility] Address: [address] [place] [address] Performed By: #### 5 8410-2 ####[facility]ATORYCLIA [id number] [place] [address] [place] Platelets (Bld) [#/Vol] 333 10*3/uL Normal 150-400 [facility] Comment on above: Order Comment: Speci men Type: BLOOD SPECIMENOrdering Facility: [facility] Address: [address] [place] [address] Performed By: #### 5 8410-2 ####[facility]ATORYCLIA [id number] [place] [address] [place] RBC (Bld) [#/Vol] 3.52 10*6/uL Low 3.90-5.20 [facility] Comment on above: Order Comment: Speci men Type: BLOOD SPECIMENOrdering Facility: [facility] Address: [address] [place] [address] Performed By: #### 5 8410-2 ####[facility]ATORYCLIA [id number] [place] [id number] [place] WBC (Bld) [#/Vol] 19.89 10*3/uL High 3.70-11.00 [facility] Comment on above: Order Comment: Speci men Type: BLOOD SPECIMENOrdering Facility: [facility] Address: [address] [place] [address] Performed By: #### 5 8410-2 ####[facility]ATORYCLIA [id number] [place] [id number] [place] Magnesium SerPl-mCncon 03-17 Magnesium [Mass/Vol] 1.8 mg/dL Normal 1.6-2.6 [facility] Comment on above: Order Comment: Speci men Type: BLOOD SPECIMENOrdering Facility: [facility] Address: [address] [place] [address] Performed By: #### 2 4321-2, , 2776-09 ####[facility]ORYCLIA [id number] [place] [id number] [place] Phosphate SerPl-mCncon 03-17 Phosphate [Mass/Vol] 1.0 mg/dL Low 2.5-4.9 [facility] Comment on above: Order Comment: Speci men Type: BLOOD SPECIMENOrdering Facility: [facility] Address: [address] [place] [address] Result Comment: CRIT ICAL Elevated m-protein (paraprotein) levels in the serum may be exhibited in patients with monoclonal gammopathies, causing falsely elevated inorganic phosphorus results. Performed By: #### 2 4321-2, 61928-2, 2777-1 ####[facility] [id number] [place] [id number] [place] ALLIED HEALTHon 03-16-2025 ALLIED HEALTH HNO ID: [id number] Author: SUELLEN CALDERON Tech Service: Radiology Author Type: Call Center Supervisor Type: Allied Health Filed: 03/16/2025 01:47 Note [...] PATIENT PRESENTS WITH AN IMPLANTABLE OR ATTACHED WATER RESOURCE ENGINEER: No ALLERGIES: Reviewed and unchanged CONTRAST ALLERGY: [...] March 16, 2025 TIME: 1:46 AM Normal [facility] ARTERIAL BLOOD GASESon 03-16 Base deficit (BldA) [Moles/Vol] -5 mmol/L Low -2-0 [facility] Comment on above: Order Comment: Reggie fajardo Type: ARTERIAL BLOOD SPECIMEN Ordering Facility: [facility] Address: [address] [place] [address] Performed By: #### A LLBG #### [facility] CLIA [id number] [address] [place] [address] [place] Body temperature 97.52 [degF] Normal [facility] Comment on above: Order Comment: Reggie fajardo Type: ARTERIAL BLOOD SPECIMEN Ordering Facility: [facility] Address: [address] [place] [address] Performed By: #### A LLBG #### [facility] CLIA [id number] [address] [place] [address] [place] Calcium.ionized (Bld) [Mass/Vol] 1.20 mmol/L Normal 1.08-1.30 [facility] Comment on above: Order Comment: Reggie fajardo Type: ARTERIAL BLOOD SPECIMEN Ordering Facility: [facility] Address: [address] [place] [address] Performed By: #### A LLBG #### [facility] CLIA [id number] [address] [place], [place] [id number] [place] Carboxyhemoglobin (BldA) [Mass fraction] 0.3 % Normal 0.0-2.0 [facility] Comment on above: Order Comment: Speci men Type: ARTERIAL BLOOD SPECIMEN Ordering Facility: [facility] Address: [address] [place] [address] Result Comment: Carb oxyhemoglobin Reference Range for Smokers: 2.0-8.0% Performed By: #### A LLBG #### [facility] CLIA [id number] [address] [place] [address] [place] CO2 (Bld) [Partial pressure] 46 mm Hg Normal 36-46 [facility] Comment on above: Order Comment: Speci men Type: ARTERIAL BLOOD SPECIMEN Ordering Facility: [facility] Address: [address] [place] [address] Performed By: #### A LLBG #### [facility] CLIA [id number] [address] [place] [address] [place] CO2 adjusted to patient's actual temperature (Bld) [Partial pressure] Normal [facility] Comment on above: Order Comment: Speci men Type: ARTERIAL BLOOD SPECIMEN Ordering Facility: [facility] Address: [address] [place] [address] Performed By: #### A LLBG #### [facility] CLIA [id number] [address] [place] [address] [place] FIO2 100.0 % Normal [facility] Comment on above: Order Comment: Speci men Type: ARTERIAL BLOOD SPECIMEN Ordering Facility: [facility] Address: [address] [place] [address] Performed By: #### A LLBG #### [facility] CLIA [id number] [address] [place] [address] [place] Glucose [Mass/Vol] 187 mg/dL High 60-105 [facility] Comment on above: Order Comment: Speci men Type: ARTERIAL BLOOD SPECIMEN Ordering Facility: [facility] Address: [address] [place] [address] Performed By: #### A LLBG #### [facility] RESPIRATORY THERAPY CLIA [id number] [address] [place] [address] [place] HCO3 (Bld) [Moles/Vol] 22 mmol/L Normal 22-26 [facility] Comment on above: Order Comment: Speci men Type: ARTERIAL BLOOD SPECIMEN Ordering Facility: [facility] Address: [address] [place] [address] Performed By: #### A LLBG #### [facility] RESPIRATORY THERAPY CLIA [id number] [address] [place] [address] [place] Hemoglobin (Bld) [Mass/Vol] 11.4 g/dL Low 11.5-15.5 [facility] Comment on above: Order Comment: Speci men Type: ARTERIAL BLOOD SPECIMEN Ordering Facility: [facility] Address: [address] [place] [address] Performed By: #### A LLBG #### [facility] RESPIRATORY THERAPY [place] [id number] [address] [place] [address] [place] INHALED TIDAL VOLUME (ML) 420 [facility] Comment on above: Order Comment: Speci men Type: ARTERIAL BLOOD SPECIMEN Ordering Facility: [facility] Address: [address] [place] [address] Performed By: #### A LLBG #### [facility] RESPIRATORY THERAPY IA [id number] [address] [place] [address] [place] INVASIVE VENTILATOR MODE A/C PRVC or VC+ or APVcmv (PC-CMVa) [facility] Comment on above: Order Comment: Speci men Type: ARTERIAL BLOOD SPECIMEN Ordering Facility: [facility] Address: [address] [place] [address] Performed By: #### A LLBG #### [facility] RESPIRATORY THERAPY CLIA [id number] [address] [place] [address] [place] Lactate [Moles/Vol] 1.6 mmol/L Normal 0.5-2.2 [facility] Comment on above: Order Comment: Speci men Type: ARTERIAL BLOOD SPECIMEN Ordering Facility: [facility] Address: [address] [place] [address] Performed By: #### A LLBG #### [facility] CLIA [id number] [address] [place] [address] [place] Methemoglobin (Bld) [Mass fraction] 0.4 % Normal 0.0-1.5 [facility] Comment on above: Order Comment: Speci men Type: ARTERIAL BLOOD SPECIMEN Ordering Facility: [facility] Address: [address] [place] [address] Performed By: #### A LLBG #### [facility] CLIA [id number] [address] [place] [address] [place] MINUTE VENTILATION 8 L/min Normal [facility] Comment on above: Order Comment: Speci men Type: ARTERIAL BLOOD SPECIMEN Ordering Facility: [facility] Address: [address] [place] [address] Performed By: #### A LLBG #### [facility] CLIA [id number] [address] [place] [address] [place] O2 THERAPY VENT=Ventilator Normal [facility] Comment on above: Order Comment: Speci men Type: ARTERIAL BLOOD SPECIMEN Ordering Facility: [facility] Address: [address] [place] [address] Performed By: #### A LLBG #### [facility] CLIA [id number] [address] [place] [address] [place] Oxygen (Bld) [Partial pressure] 92 mm Hg Normal 85-95 [facility] Comment on above: Order Comment: Speci men Type: ARTERIAL BLOOD SPECIMEN Ordering Facility: [facility] Address: [address] [place] [address] Performed By: #### A LLBG #### [facility] CLIA [id number] [address] [place] [address] [place] Oxygen adjusted to patient's actual temperature (Bld) [Partial pressure] Normal [facility] Comment on above: Order Comment: Speci men Type: ARTERIAL BLOOD SPECIMEN Ordering Facility: [facility] Address: [address] [place] [address] Performed By: #### A LLBG #### [facility] CLIA [id number] [address] [place] [address] OF [place] Oxyhemoglobin (BldA) [Mass fraction] 96 % Normal 95-98 [facility] Comment on above: Order Comment: Speci men Type: ARTERIAL BLOOD SPECIMEN Ordering Facility: [facility] Address: [address] [place] [address] Performed By: #### A LLBG #### [facility] CLIA [id number] [address] [place] [address] OF [place] PEEP/CPAP 8 cmH2O Normal [facility] Comment on above: Order Comment: Speci men Type: ARTERIAL BLOOD SPECIMEN Ordering Facility: [facility] Address: [address] [place] [address] Performed By: #### A LLBG #### [facility] CLIA [id number] [address] [place] [address] [place] pH (Bld) 7.29 [pH] Low 7.35-7.45 [facility] Comment on above: Order Comment: Speci men Type: ARTERIAL BLOOD SPECIMEN Ordering Facility: [facility] Address: [address] [place] [address] Performed By: #### A LLBG #### [facility] RESPIRATORY THERAPY CLIA [id number] [address] [place] [address] pH adjusted to patient's actual temperature (Bld) Normal [facility] Comment on above: Order Comment: Speci men Type: ARTERIAL BLOOD SPECIMEN Ordering Facility: [facility] Address: [address] [place] [address] Performed By: #### A LLBG #### [facility] CLIA [id number] [address] [place] [address] [place] PO2 / FIO2 RATIO 92 mmHg Low >300 [facility] Comment on above: Order Comment: Speci men Type: ARTERIAL BLOOD SPECIMEN Ordering Facility: [facility] Address: [address] [place] [address] Performed By: #### A LLBG #### [facility] RESPIRATORY THERAPY CLIA [id number] [address] [place] [address] [place] Potassium [Moles/Vol] 3.5 mmol/L Normal 2.5-6.0 [facility] Comment on above: Order Comment: Speci men Type: ARTERIAL BLOOD SPECIMEN Ordering Facility: [facility] Address: [address] [place] [address] Performed By: #### A LLBG #### [facility] RESPIRATORY THERAPY CLIA [id number] [address] [place] [address] STATES OF [facility] SET VENTILATOR RESPIRATORY RATE (BPM) 20 BPM Normal [facility] Comment on above: Order Comment: Speci men Type: ARTERIAL BLOOD SPECIMEN Ordering Facility: [facility] Address: [address] [place] [address] Performed By: #### A LLBG #### [facility] RESPIRATORY THERAPY CLIA [id number] [address] [place] [address] [place] Sodium [Moles/Vol] 140 mmol/L Normal 136-144 [facility] Comment on above: Order Comment: Speci men Type: ARTERIAL BLOOD SPECIMEN Ordering Facility: [facility] Address: [address] [place] [address] Performed By: #### A LLBG #### [facility] RESPIRATORY THERAPY CLIA [id number] [address] [place] [address] [place] Bacteria Bld Culton 03-16-20 25 Bacteria identified Cx Nom (Bld) CULTURE, BLOOD: No growth 5 days Normal [facility] Comment on above: Performed By: #### 2 4323-8, 3040-3, 33344-4, 2777-1, 2571-8 #### [facility] CLIA [id number] [address] [place] [address] [place] Bacteria identified Cx Nom (Bld) CULTURE, BLOOD: No growth 5 days Normal [facility] Comment on above: Performed By: #### 2 4323-8, 3040-3, 74391-9, 2777-1, 2571-8 #### [facility] CLIA [id number] [address] [place] [address] [place] Bacteria Spec Resp [...] AGNIESZKA STATUS REFERENCE RANGE Penicillin (oral) S <=0.81005 F Susceptible <=0.06 , Intermediate >.06 , Resistant >1 Penicillin Non-Meningitis S <=0.25751 F Susceptible <=2 , Intermediate >2 , Resistant >=8 Penicillin Meningitis S <=0.50048 F Susceptible <=0.06 , Resistant >.06 Ceftriaxone Meningitis S <=0.0625 F Susceptible <=0.5 , Intermediate >.5 , Resistant >=2 Ceftriaxone Non-Meningitis S <=0.0625 F Susceptible <=1 , Intermediate >1 , Resistant >2 Cefepime S <=0.0625 F Susceptible <=1 , Intermediate >1 , Resistant >2 Meropenem S <=0.0625 F Susceptible <=0.25 , Intermediate >.25 , Resistant >.5 Erythromycin S <=0.68360 F Susceptible <=0.25 , Intermediate >.25 , [...] , Intermediate >4 , Resistant >8 Abnormal [facility] Comment on above: Performed By: #### 3 4528-0, 88377-1 #### [facility] CLIA [id number] [address] [place] [address] [place] Basic Metabolic Profile (BMP )on 03-16-2025 BUN Normal 4-19 [facility] Comment on above: Result Comment: Canc elled via OM: Order cancelled - Patient discharged Performed By: #### L 500.2500, L100.0100 ####[facility] [address] [place], [address] BUN/CRE Normal 10-20 [facility] Comment on above: Result Comment: Canc elled via OM: Order cancelled - Patient discharged Performed By: #### L 500.2500, L100.0100 ####[facility] [address] [place], [address] Calcium Normal 7.6-11.0 [facility] Comment on above: Result Comment: Canc elled via OM: Order cancelled - Patient discharged Performed By: #### L 500.2500, L100.0100 ####[facility] [address] [place], [address] CL Normal 98-108 [facility] Comment on above: Result Comment: Canc elled via OM: Order cancelled - Patient discharged Performed By: #### L 500.2500, L100.0100 ####[facility] [address] [place], [address] CO2 Normal 21.0-32.0 [facility] Comment on above: Result Comment: Canc elled via OM: Order cancelled - Patient discharged Performed By: #### L 500.2500, L100.0100 ####[facility] [address] [place], [address] CREAT,SERUM Normal 0.70-1.20 [facility] Comment on above: Result Comment: Canc elled via OM: Order cancelled - Patient discharged Performed By: #### L 500.2500, L100.0100 ####[facility] [address] [place], [address] eGFR Normal >60 [facility] Comment on above: Result Comment: Canc elled via OM: Order cancelled - Patient discharged Performed By: #### L 500.2500, L100.0100 ####[facility] [address] [place], [address] GAP Normal 5-15 [facility] Comment on above: Result Comment: Canc elled via OM: Order cancelled - Patient discharged Performed By: #### L 500.2500, L100.0100 ####[facility] [address] [place], [address] GLU Normal 70-99 [facility] Comment on above: Result Comment: Canc elled via OM: Order cancelled - Patient discharged Performed By: #### L 500.2500, L100.0100 ####[facility] [address] [place], [address] Potassium Normal 3.3-5.1 [facility] Comment on above: Result Comment: Canc elled via OM: Order cancelled - Patient discharged Performed By: #### L 500.2500, L100.0100 ####[facility] [address] [place], [address] Basic Metabolic Profile (BMP) Normal 133-145 [facility] Comment on above: Result Comment: Canc elled via OM: Order cancelled - Patient discharged Performed By: #### L 500.2500, L100.0100 ####[facility] [address] [place], [address] CBC W/Diff, Automatedon 06- Absolute Neut Normal 2.0-7.7 [facility] Comment on above: Result Comment: Canc elled via OM: Order cancelled - Patient discharged Performed By: #### L 500.2500, L100.0100 ####[facility] [address] [place], [address] HCT Normal 37-47 [facility] Comment on above: Result Comment: Canc elled via OM: Order cancelled - Patient discharged Performed By: #### L 500.2500, L100.0100 ####[facility] [address] [place], [address] HGB Normal 12.0-15.0 [facility] Comment on above: Result Comment: Canc elled via OM: Order cancelled - Patient discharged Performed By: #### L 500.2500, L100.0100 ####[facility] [address] [place], [address] MCH Normal 27.0-32.0 [facility] Comment on above: Result Comment: Canc elled via OM: Order cancelled - Patient discharged Performed By: #### L 500.2500, L100.0100 ####[facility] [address] [place], [address] MCHC Normal 32-36 [facility] Comment on above: Result Comment: Canc elled via OM: Order cancelled - Patient discharged Performed By: #### L 500.2500, L100.0100 ####[facility] [address] [place], [address] MCV Normal 81-99 [facility] Comment on above: Result Comment: Canc elled via OM: Order cancelled - Patient discharged Performed By: #### L 500.2500, L100.0100 ####[facility] [address] [place], [address] NEUT% Normal 47-70 [facility] Comment on above: Result Comment: Canc elled via OM: Order cancelled - Patient discharged Performed By: #### L 500.2500, L100.0100 ####[facility] [address] [place], [address] PLT Normal 150-450 [facility] Comment on above: Result Comment: Canc elled via OM: Order cancelled - Patient discharged Performed By: #### L 500.2500, L100.0100 ####[facility] [address] [place], [address] RBC Normal 4.2-5.4 [facility] Comment on above: Result Comment: Canc elled via OM: Order cancelled - Patient discharged Performed By: #### L 500.2500, L100.0100 ####[facility] [address] [place], [address] RDW CV Normal 11.6-14.6 [facility] Comment on above: Result Comment: Canc elled via OM: Order cancelled - Patient discharged Performed By: #### L 500.2500, L100.0100 ####[facility] [address] [place], [address] RDW SD Normal 35.1-43.9 [facility] Comment on above: Result Comment: Canc elled via OM: Order cancelled - Patient discharged Performed By: #### L 500.2500, L100.0100 ####[facility] [address] [place], [address] WBC Normal 4.4-11.0 [facility] Comment on above: Result Comment: Canc elled via OM: Order cancelled - Patient discharged Performed By: #### L 500.2500, L100.0100 ####[facility] [address] [place], [address] CBC panel Auto (Bld)on 03-16 Erythrocyte distribution width (RBC) [Ratio] 14.6 % Normal 11.5-15.0 [facility] Comment on above: Order Comment: Speci men Type: BLOOD SPECIMEN Ordering Facility: [facility] Address: [address] [place] [address] Performed By: #### 5 1010-2 #### [facility] CLIA [id number] [address] [place] [address] [place] Hematocrit (Bld) [Volume fraction] 32.8 % Low 36.0-46.0 [facility] Comment on above: Order Comment: Speci men Type: BLOOD SPECIMEN Ordering Facility: [facility] Address: [address] [place] [address] Performed By: #### 5 8410-2 #### [facility] CLIA [id number] [address] [place] [address] [place] Hemoglobin (Bld) [Mass/Vol] 10.1 g/dL Low 11.5-15.5 [facility] Comment on above: Order Comment: Speci men Type: BLOOD SPECIMEN Ordering Facility: [facility] Address: [address] [place] [address] Performed By: #### 5 8410-2 #### [facility] CLIA [id number] [address] [place] [address] OF [place] MCH (RBC) [Entitic mass] 27.2 pg Normal 26.0-34.0 [facility] Comment on above: Order Comment: Speci men Type: BLOOD SPECIMEN Ordering Facility: [facility] Address: [address] [place] [address] Performed By: #### 5 8410-2 #### [facility] CLIA [id number] [address] [place] [address] [place] MCHC (RBC) [Mass/Vol] 30.8 g/dL Normal 30.5-36.0 [facility] Comment on above: Order Comment: Speci men Type: BLOOD SPECIMEN Ordering Facility: [facility] Address: [address] [place] [address] Performed By: #### 5 8410-2 #### [facility] CLIA [id number] [address] [place] [address] [place] MCV (RBC) [Entitic vol] 88.2 fL Normal 80.0-100.0 [facility] Comment on above: Order Comment: Speci men Type: BLOOD SPECIMEN Ordering Facility: [facility] Address: [address] [place] [id number] Performed By: #### 5 8410-2 #### [facility] CLIA [id number] [address] [place] [address] [place] Nucleated RBC (Bld) [#/Vol] 10*3/uL Normal <0.01 [facility] Comment on above: Order Comment: Speci men Type: BLOOD SPECIMEN Ordering Facility: [facility] Address: [address] [place] [address] Performed By: #### 5 8410-2 #### [facility] CLIA [id number] [address] [place] [address] [place] Platelet mean volume (Bld) [Entitic vol] 10.0 fL Normal 9.0-12.7 [facility] Comment on above: Order Comment: Speci men Type: BLOOD SPECIMEN Ordering Facility: [facility] Address: [address] [place] [address] Performed By: #### 5 8410-2 #### [facility] CLIA [id number] [address] [place] [address] [place] Platelets (Bld) [#/Vol] 337 10*3/uL Normal 150-400 [facility] Comment on above: Order Comment: Speci men Type: BLOOD SPECIMEN Ordering Facility: [facility] Address: [address] [place] [address] Performed By: #### 5 8410-2 #### [facility] CLIA [id number] [address] [place] [address] [place] RBC (Bld) [#/Vol] 3.72 10*6/uL Low 3.90-5.20 [facility] Comment on above: Order Comment: Speci men Type: BLOOD SPECIMEN Ordering Facility: [facility] Address: [address] [place] [address] Performed By: #### 5 8410-2 #### [facility] CLIA [id number] [address] [place], [place] [address] [place] WBC (Bld) [#/Vol] 27.49 10*3/uL High 3.70-11.00 [facility] Comment on above: Order Comment: Speci men Type: BLOOD SPECIMEN Ordering Facility: [facility] Address: [address] [place] [address] Performed By: #### 5 8410-2 #### [facility] CLIA [id number] [address] [place], [place] [address] [facility] CNPNon 03-16-2025 CNPN Telephone (INTMWS) -------- GRACIE BANUELOS ([id number]) 1965 F Date Time Provider Department 03/16/25 MISBAH ELKINS INTMWS During your visit today, we recorded the following information about you: Eva Martines RN 03/16/2025 1:22 PM Signed Patient's daughter calls and wanted provider aware that patient is currently at [facility] on a Ventilator. Daughter apologizes for [...] female [N39.3] (more content not included)... Normal [facility] CONSULT PROGon 03-16-2025 CONSULT PROG HNO ID: [id number] Author: DANIEL REYNA [facility] Service: Pharmacy Author Type: Pharmacist [...] if there are questions. Daniel Reyna jennifer [facility] CONSULT PROG HNO ID: [id number] Author: JOSE GUADALUPE GUZMAN [facility] Service: Pharmacy Author Type: Pharmacist [...] No results found for: FELTON Guzman, [facility] CT ABD/PEL W IVCONon 025 CT ABD/PEL W IVCON * * *Final Report* * * DATE OF EXAM: Mar 16 2025 1:50AM [facility] 0530 - CT ABD/PEL W IVCON / [...] stent. * No other acute abdominopelvic process. Photo Optics Technician: [facility] Transcribe Date/Time: Mar 16 2025 4:01A Dictated by : TRISH BAHENA MD This examination was interpreted and the report reviewed and electronically signed by: TRISH BAHENA MD on Mar 16 2025 4:21AM EST [id number] Normal [facility] CTA CHEST (NON GATED) W IVCO N PEon 03-16-2025 CTA CHEST (NON GATED) W IVCON PE * * *Final Report* * * DATE OF EXAM: Mar 16 2025 1:50AM [facility] 0564 - CTA CHEST (NON GATED) W [...] to resolution, underlying lung nodules/mass not excluded. Photo Optics Technician: [facility] Transcribe Date/Time: Mar 16 2025 3:49A Dictated by : SUELLEN SÁNCHEZ MD This examination was interpreted and the report reviewed and electronically signed by: SUELLEN SÁNCHEZ MD on Mar 16 2025 4:00AM EST [id number] [facility] Comprehensive metabolic 2000 panelon 03-16-2025 Albumin [Mass/Vol] 2.7 g/dL Low 3.2-5.0 [facility] Comment on above: Order Comment: Speci men Type: BLOOD SPECIMEN Ordering Facility: [facility] Address: [address] [place] [address] Performed By: #### 2 4323-8, 3040-3, 59278-4, 2777-1, 257-8 #### [facility] CLIA [id number] [address] [place] [address] [place] ALP [Catalytic activity/Vol] 143 U/L High 45-117 [facility] Comment on above: Order Comment: Speci men Type: BLOOD SPECIMEN Ordering Facility: [facility] Address: [address] [place] [address] Performed By: #### 2 4323-8, 3040-3, 11890-2, 7-1, 257-8 #### [facility] CLIA [id number] [address] [place] [address] [place] ALT [Catalytic activity/Vol] 17 U/L Normal 13-61 [facility] Comment on above: Order Comment: Speci men Type: BLOOD SPECIMEN Ordering Facility: [facility] Address: [address] [place] [address] Result Comment: Resu lts may be falsely depressed after the administration of Sulfasalazine and/or Sulfapyridine. Performed By: #### 2 4323-8, 3040-3, 29678-1, 277-1, 257-8 #### [facility] CLIA [id number] [address] [place], [place] [address] [place] Anion gap [Moles/Vol] 18 mmol/L High 5-16 [facility] Comment on above: Order Comment: Speci men Type: BLOOD SPECIMEN Ordering Facility: [facility] Address: [address] [place] [address] Performed By: #### 2 4323-8, 3040-3, 16199-0, 2777-1, 2571-8 #### [facility] CLIA [id number] [address] [place], [place] [address] [place] AST [Catalytic activity/Vol] 13 U/L Normal 8-34 [facility] Comment on above: Order Comment: Speci men Type: BLOOD SPECIMEN Ordering Facility: [facility] Address: [address] [place] [address] Result Comment: Resu lts may be falsely depressed after the administration of Sulfasalazine and/or Sulfapyridine. Performed By: #### 2 4323-8, 3040-3, 16224-4, 2776-, 8 #### [facility] CLIA [id number] [address] [place] [address] [place] Bilirubin [Mass/Vol] 0.3 mg/dL Normal 0.2-1.0 [facility] Comment on above: Order Comment: Kettyi tana Type: BLOOD SPECIMEN Ordering Facility: [facility] Address: [address] [place] [address] Performed By: #### 2 4323-8, 3040-3, 41550-6, 2776-09, 8 #### [facility] CLIA [id number] [address] [place] [address] [place] [place] Calcium [Mass/Vol] 9.3 mg/dL Normal 8.5-10.5 [facility] Comment on above: Order Comment: Kettyi tana Type: BLOOD SPECIMEN Ordering Facility: [facility] Address: [address] [place] [address] Performed By: #### 2 4323-8, 3040-3, 70461-3, 2776-1, 8 #### [facility] CLIA [id number] [address] [place], [place] [address] [place] Chloride [Moles/Vol] 99 mmol/L Normal 98-107 [facility] Comment on above: Order Comment: Speci men Type: BLOOD SPECIMEN Ordering Facility: [facility] Address: [address] [place], [place] [address] Performed By: #### 2 4323-8, 3040-3, 29455-4, 2776-1, 2570-8 #### [facility] CLIA [id number] [address] [place] [address] [place] CO2 [Moles/Vol] 23 mmol/L Normal 21-32 [facility] Comment on above: Order Comment: Speci men Type: BLOOD SPECIMEN Ordering Facility: [facility] Address: [address] [place] [address] Performed By: #### 2 4323-8, 3040-3, 68670-9, 2777-1, 8 #### [facility] CLIA [id number] [address] [place] [address] [place] Creatinine [Mass/Vol] 0.93 mg/dL Normal 0.51-0.95 [facility] Comment on above: Order Comment: Speci men Type: BLOOD SPECIMEN Ordering Facility: [facility] Address: [address] [place] [address] Result Comment: Gretta ents receiving either N-Acetylcysteine (NAC) or Metamizole prior to venipuncture, may have falsely depressed results. Performed By: #### 2 4323-8, 3040-3, 61049-7, 2776-, 8 #### [facility] CLIA [id number] [address] [place] [address] [place] Creatinine and Glomerular filtration rate.predicted panel (S/P/Bld) 70 mL/min/1.73m??? Normal >=60 [facility] Comment on above: Order Comment: Speci men Type: BLOOD SPECIMEN Ordering Facility: [facility] Address: [address] [place] [address] Result Comment: Pavan mated Glomerular Filtration Rate [...] GFR. Performed By: #### 2 4323-8, 3040-3, 34087-2, 2776-1, 2571-04 #### [facility] CLIA [id number] [address] [place], [place] [address] [place] Glucose [Mass/Vol] 175 mg/dL High 70-100 [facility] Comment on above: Order Comment: Reggie fajardo Type: BLOOD SPECIMEN Ordering Facility: [facility] Address: [address] [place] [address] Result Comment: The [place] [employer] Association (ADA) provides guidance for cutoff [...] Standards of Medical Care in Diabetes 2016, [place] [employer]. Diabetes Care. 2016.39(Suppl 1). Results may be falsely elevated after the administration of Sulfapyridine. Results may be falsely depressed after the administration of Sulfasalazine. Performed By: #### 2 4323-8, 3040-3, 22126-3, 2777-, 2571-04 #### [facility] CLIA [id number] [address] [place], [place] [address] [place] Potassium [Moles/Vol] 3.9 mmol/L Normal 3.5-5.1 [facility] Comment on above: Order Comment: Reggie fajardo Type: BLOOD SPECIMEN Ordering Facility: [facility] Address: [address] [place] [address] Performed By: #### 2 4323-8, 3040-3, 02882-4, 277-, 2571-04 #### [facility] CLIA [id number] [address] [place], [place] [address] [place] Protein [Mass/Vol] 6.6 g/dL Normal 6.0-8.5 [facility] Comment on above: Order Comment: Speci men Type: BLOOD SPECIMEN Ordering Facility: [facility] Address: [address] [place], [place] [address] Performed By: #### 2 4323-8, 3040-3, 61371-5, 2777-1, 257-8 #### [facility] CLIA [id number] [address] [place], [place] [address] [place] Sodium [Moles/Vol] 140 mmol/L Normal 136-145 [facility] Comment on above: Order Comment: Speci men Type: BLOOD SPECIMEN Ordering Facility: [facility] Address: [address] [place], [place] [address] Performed By: #### 2 4323-8, 3040-3, 36966-1, 2777-1, 257-8 #### [facility] CLIA [id number] [address] [place], [place] [address] [place] Urea nitrogen [Mass/Vol] 12 mg/dL Normal 7- [facility] Comment on above: Order Comment: Speci men Type: BLOOD SPECIMEN Ordering Facility: [facility] Address: [address] [place] [address] Performed By: #### 2 4323-8, 3040-3, 90736-5, 2777-1, 257-8 #### [facility] CLIA [id number] [address] [place], [place] [address] [place] Gas and Carbon monoxide pane l (BldV)on 03-16-2025 Base excess Calc (BldV) [Moles/Vol] 1 mmol/L Normal 0-2 [facility] Comment on above: Order Comment: Speci men Type: BLOOD SPECIMEN Ordering Facility: [facility] Address: [address] [place] [address] Performed By: #### 5 8410-2 #### [facility] CLIA [id number] [address] [place], [place] [address] [place] Body temperature 100.94 [degF] Normal [facility] Comment on above: Order Comment: Speci men Type: BLOOD SPECIMEN Ordering Facility: [facility] Address: [address] [place] [address] Performed By: #### 5 8410-2 #### [facility] CLIA [id number] [address] [place] [address] [place] Calcium.ionized (Bld) [Mass/Vol] 1.14 mmol/L Normal 1.08-1.30 [facility] Comment on above: Order Comment: Speci men Type: BLOOD SPECIMEN Ordering Facility: [facility] Address: [address] [place] [address] Performed By: #### 5 8410-2 #### [facility] CLIA [id number] [address] [place] [address] [place] Carboxyhemoglobin (BldV) [Mass fraction] 1.0 % Normal 0.0-2.0 [facility] Comment on above: Order Comment: Speci men Type: BLOOD SPECIMEN Ordering Facility: [facility] Address: [address] [place] [address] Result Comment: Carb oxyhemoglobin Reference Range for Smokers: 2.0-8.0% Performed By: #### 5 8410-2 #### [facility] CLIA [id number] [address] [place] [address] [place] CO2 (BldV) [Partial pressure] 47 mm[Hg] Normal 42-55 [facility] Comment on above: Order Comment: Speci men Type: BLOOD SPECIMEN Ordering Facility: [facility] Address: [address] [place] [address] Performed By: #### 5 8410-2 #### [facility] CLIA [id number] [address] [place] [address] [place] CO2 adjusted to patient's actual temperature (BldV) [Partial pressure] Normal [facility] Comment on above: Order Comment: Speci men Type: BLOOD SPECIMEN Ordering Facility: [facility] Address: [address] [place] [address] Performed By: #### 5 8410-2 #### [facility] CLIA [id number] [address] [place] [address] [place] Glucose [Mass/Vol] 190 mg/dL High 60-105 [facility] Comment on above: Order Comment: Speci men Type: BLOOD SPECIMEN Ordering Facility: [facility] Address: [address] [place] [address] Performed By: #### 5 8410-2 #### [facility] CLIA [id number] [address] [place], [place] [address] [place] HCO3 (Bld) [Moles/Vol] 26 mmol/L Normal 24-28 [facility] Comment on above: Order Comment: Speci men Type: BLOOD SPECIMEN Ordering Facility: [facility] Address: [address] [place] [address] Performed By: #### 5 8410-2 #### [facility] CLIA [id number] [address] [place] [address] [place] Hemoglobin (Bld) [Mass/Vol] 11.5 g/dL Normal 11.5-15.5 [facility] Comment on above: Order Comment: Speci men Type: BLOOD SPECIMEN Ordering Facility: [facility] Address: [address] [place], [place] [address] Performed By: #### 5 8410-2 #### [facility] CLIA [id number] [address] [place] [address] [place] Lactate [Moles/Vol] 2.5 mmol/L High 0.5-2.2 [facility] Comment on above: Order Comment: Speci men Type: BLOOD SPECIMEN Ordering Facility: [facility] Address: [address] [place] [address] Performed By: #### 5 8410-2 #### [facility] CLIA [id number] [address] [place] [address] [place] Methemoglobin (Bld) [Mass fraction] 0.1 % Normal 0.0-1.5 [facility] Comment on above: Order Comment: Speci men Type: BLOOD SPECIMEN Ordering Facility: [facility] Address: [address] [place] [address] Performed By: #### 5 8410-2 #### [facility] CLIA [id number] [address] [place] [address] [place] O2 THERAPY VENT=Ventilator Normal [facility] Comment on above: Order Comment: Speci men Type: BLOOD SPECIMEN Ordering Facility: [facility] Address: [address] [place] [address] Performed By: #### 5 8410-2 #### [facility] CLIA [id number] [address] [place] [address] [place] Oxygen (BldV) [Partial pressure] 33 mm[Hg] Low 35-45 [facility] Comment on above: Order Comment: Speci men Type: BLOOD SPECIMEN Ordering Facility: [facility] Address: [address] [place] [address] Performed By: #### 5 8410-2 #### [facility] CLIA [id number] [address] [place] [address] [place] Oxygen adjusted to patient's actual temperature (BldV) [Partial pressure] Normal [facility] Comment on above: Order Comment: Speci men Type: BLOOD SPECIMEN Ordering Facility: [facility] Address: [address] [place] [address] Performed By: #### 5 8410-2 #### [facility] CLIA [id number] [address] [place] [address] [place] Oxyhemoglobin (BldV) [Mass fraction] 60 % Normal 4-98 [facility] Comment on above: Order Comment: Speci men Type: BLOOD SPECIMEN Ordering Facility: [facility] Address: [address] [place], [place] [address] Performed By: #### 5 8410-2 #### [facility] CLIA [id number] [address] [place] [address] [place] pH (BldV) 7.37 [pH] Normal 7.32-7.42 [facility] Comment on above: Order Comment: Speci men Type: BLOOD SPECIMEN Ordering Facility: [facility] Address: [address] [place] [address] Performed By: #### 5 8410-2 #### [facility] CLIA [id number] [address] [place] [address] [place] pH adjusted to patient's actual temperature (BldV) Normal [facility] Comment on above: Order Comment: Speci men Type: BLOOD SPECIMEN Ordering Facility: [facility] Address: [address] [place] [address] Performed By: #### 5 8410-2 #### [facility] CLIA [id number] [address] [place] [address] [place] Potassium [Moles/Vol] 3.5 mmol/L Normal 2.5-6.0 [facility] Comment on above: Order Comment: Speci men Type: BLOOD SPECIMEN Ordering Facility: [facility] Address: [address] [place] [address] Performed By: #### 5 8410-2 #### [facility] CLIA [id number] [address] [place] [address] [place] Sodium [Moles/Vol] 139 mmol/L Normal 136-144 [facility] Comment on above: Order Comment: Speci men Type: BLOOD SPECIMEN Ordering Facility: [facility] Address: [address] [place] [address] Performed By: #### 5 8410-2 #### [facility] CLIA [id number] [address] [place], [place] [address] [place] Gram Stainon 03-16-2025 GS Gram Stain 3+ Gram positive diplococci 2+ White Blood Cells No Epithelial cells Normal [facility] Comment on above: Performed By: #### M 100.2000, M100.2400 ####[facility] [address] [place], [address] Legionella Ag Ur Qlon 2024 Legionella sp Ag Ql (U) Negative Normal Negative [facility] Comment on above: Order Comment: Speci men Type: ARTERIAL BLOOD SPECIMEN Ordering Facility: [facility] Address: [address] [place] [address] Performed By: #### A LLBG #### [facility] CLIA [id number] [address] [place], [place] [address] [place] Lipase SerPl-cCncon 03-16-20 25 Lipase [Catalytic activity/Vol] 51 U/L Normal 12-60 [facility] Comment on above: Order Comment: Speci men Type: BLOOD SPECIMEN Ordering Facility: [facility] Address: [address] [place] [address] Performed By: #### 2 4323-8, 3040-3, 40246-6, 2777-1, 2571-8 #### [facility] CLIA [id number] [address] [place] [address] [place] Magnesium SerPl-mCncon 03-16 Magnesium [Mass/Vol] 1.1 mg/dL Low 1.6-2.6 [facility] Comment on above: Order Comment: Speci men Type: BLOOD SPECIMEN Ordering Facility: [facility] Address: [address] [place] [address] Performed By: #### 2 4323-8, 3040-3, 11960-4, 2777-1, 2571-8 #### [facility] CLIA [id number] [address] [place], [place] [address] [place] NUTRITIONon 03-16-2025 NUTRITION HNO ID: [id number] Author: GABE MILAN RD Service: Nutrition Therapy [...] 3 severe COPD by GOLD classification ([facility]) 2018 Tobacco use greater than 30 years Unspecified hemorrhoids without mention of complication Urine, incontinence, stress female 11/24/2014 Intake History: Nutrition Intake Prior to Admission: Unable to determine Current Nutrition Intake: NPO Current Intake Over time: (1 day LOS) Dosing Weight: 60.8 kg (134 lb) Dosing Weight Type: Current weight Estimated kilocalorie needs: 2926-0167 Calorie Calculation Method: 25-30 kcals/kg Estimated protein needs (grams): 73-92 Grams protein determined by: 1.2 - 1.5 g/kg Diet Orders (From admission, onward) Start Ordered 03/15/25 2313 DIET NPO START NOW 03/15/25 0187 Anthropometrics: Height: 165.1 cm (5' 5) Weight: [...] March 16, 2025 TIME: 3:44 PM Normal [facility] PT panel Coag (PPP)on 2024 INR Coag (PPP) [Relative time] 1.1 {INR} Normal 0.9-1.3 [facility] Comment on above: Order Comment: Speci men Type: BLOOD SPECIMEN Ordering Facility: [facility] Address: [address] [place] [address] Result Comment: Zandra min K Antagonist (VKA) Therapeutic Range: INR 2 to 3 (Target INR of 2.5) Note: For patients treated with VKA drugs, such as warfarin, the [place] [employer] 2012 Guideline recommends [...] Chest 2012, 141:7S-47S Alessandro RA, et al. [facility] 2017, 70: 252-289 Performed By: #### 3 4528-0, 19373-6 #### [facility] CLIA [id number] [address] [place] [address] [place] PT Coag (PPP) [Time] 12.1 s Normal 9.7-13.0 [facility] Comment on above: Order Comment: Reggie fajardo Type: BLOOD SPECIMEN Ordering Facility: [facility] Address: [address] [place] [address] Performed By: #### 3 4528-0, 18749-4 #### [facility] CLIA [id number] [address] [place] [address] [place] Phosphate SerPl-mCncon 03-16 Phosphate [Mass/Vol] 2.9 mg/dL Normal 2.5-4.9 [facility] Comment on above: Order Comment: Reggie fajardo Type: ARTERIAL BLOOD SPECIMEN Ordering Facility: [facility] Address: [address] [place] [address] Result Comment: Elev ated m-protein (paraprotein) levels in the serum may be exhibited in patients with monoclonal gammopathies, causing falsely elevated inorganic phosphorus results. Performed By: #### A LLBG #### [facility] CLIA [id number] [address] [place] [address] [place] Procalcitonin SerPl-mCncon 0 03-16-2025 Procalcitonin [Mass/Vol] 0.68 ng/mL High 0.00-0.50 [facility] Comment on above: Order Comment: Reggie fajardo Type: ARTERIAL BLOOD SPECIMEN Ordering Facility: [facility] Address: [address] [place] [address] Result Comment: PCT Concentration Interpretation PCT <=0.1 [...] By: #### A LLBG #### [facility] CLIA [id number] [address] [place] [address] [place] SEPSIS LACTATE W/ REFLEX (IN ITIAL)on 03-16-2025 Lactate [Moles/Vol] 1.3 mmol/L Normal 0.4-2.0 [facility] Comment on above: Order Comment: Reggie fajardo Type: BLOOD SPECIMEN Ordering Facility: [facility] Address: [address] [place] [address] Performed By: #### S LACTR #### [facility] CLIA [id number] [address] [place] [address] [place] STAPHYLOCOCCUS AUREUS AND MR SA SCREEN, PCR, NASALon 03-16-2025 S. aureus and MRSA panel KANDY+probe (Nose) Methicillin-SUSCEPTIBLE Staphylococcus aureus Detected Abnormal Not Detected [facility] Comment on above: Order Comment: Reggie fajardo Type: BLOOD SPECIMEN Ordering Facility: [facility] Address: [address] [place] [address] Performed By: #### 5 8410-2 #### [facility] CLIA [id number] [address] [place], [place] [address] [place] STREPTOCOCCUS PNEUMONIAE ANT IGEN URINEon 03-16-2025 STREPTOCOCCUS PNEUMONIAE ANTIGEN URINE STREP PNEUMO AG RESULT: Negative for Streptococcus pneumoniae antigen. Presumptive negative for pneumococcal pneumonia, suggesting no current or recent pneumococcal infection. Infection due to S.pneumoniae cannot be ruled out since the antigen present in the sample may be below the detection limit of the test. Normal [facility] Comment on above: Performed By: #### A LLBG #### [facility] CLIA [id number] [address] [place] [address] Trigl SerPl-mCncon Triglyceride [Mass/Vol] 159 mg/dL High 30-149 [facility] Comment on above: Order Comment: Speci men Type: ARTERIAL BLOOD SPECIMEN Ordering Facility: [facility] Address: [address] [place] [address] Result Comment: <150 mg/dL, Normal 150-199 mg/dL, Borderline high 200-499 mg/dL, High >499 mg/dL, Very high Reference: 1. National Cholesterol Education Program ATP III Guideline At-A-Glance Quick Desk Reference: National Heart, Lung, and Blood Felt. National Institutes of Health. 2001: [facility] Publication No. 01-3305. Patients receiving either N-Acetylcysteine (NAC) or Metamizole prior to venipuncture, may have falsely depressed results. Performed By: #### A LLBG #### [facility] CLIA [id number] [address] [place] [address] Triglyceride [Mass/Vol]on FASTING TIME Not none Normal [facility] Comment on above: Order Comment: Speci men Type: ARTERIAL BLOOD SPECIMEN Ordering Facility: [facility] Address: [address] [place] [address] Performed By: #### A LLBG #### [facility] CLIA [id number] [address] [place] [address] Urinalysis complete panel (U )on 03-16-2025 Bacteria LM.HPF (Urine sed) [#/Area] Rare Abnormal None Seen [facility] Comment on above: Order Comment: Speci men Type: ARTERIAL BLOOD SPECIMEN Ordering Facility: [facility] Address: [address] [place] [address] Performed By: #### A LLBG #### [facility] CLIA [id number] [address] [place] [address] Bilirubin Ql (U) Negative Normal Negative [facility] Comment on above: Order Comment: Speci men Type: ARTERIAL BLOOD SPECIMEN Ordering Facility: [facility] Address: [address] [place] [address] Performed By: #### A LLBG #### [facility] CLIA [id number] [address] [place] [address] [place] Clarity (Unsp spec) Clear Normal Clear [facility] Comment on above: Order Comment: Speci men Type: ARTERIAL BLOOD SPECIMEN Ordering Facility: [facility] Address: [address] [place] [address] Performed By: #### A LLBG #### [facility] CLIA [id number] [address] [place] [address] [place] Color (U) Colorless Normal Yellow [facility] Comment on above: Order Comment: Speci men Type: ARTERIAL BLOOD SPECIMEN Ordering Facility: [facility] Address: [address] [place] [address] Performed By: #### A LLBG #### [facility] CLIA [id number] [address] [place] [address] [place] Epithelial cells LM.HPF (Urine sed) [#/Area] None Seen Normal [facility] Comment on above: Order Comment: Speci men Type: ARTERIAL BLOOD SPECIMEN Ordering Facility: [facility] Address: [address] [place] [address] Performed By: #### A LLBG #### [facility] CLIA [id number] [address] [place] [address] [place] Glucose Test strip (U) [Mass/Vol] 1+ Abnormal Negative [facility] Comment on above: Order Comment: Speci men Type: ARTERIAL BLOOD SPECIMEN Ordering Facility: [facility] Address: [address] [place] [address] Performed By: #### A LLBG #### [facility] CLIA [id number] [address] [place] [address] [place] Hemoglobin Ql (U) 1+ Abnormal Negative [facility] Comment on above: Order Comment: Speci men Type: ARTERIAL BLOOD SPECIMEN Ordering Facility: [facility] Address: [address] [place] [address] Performed By: #### A LLBG #### [facility] CLIA [id number] [address] [place] [address] Ketones Ql (U) 1+ Abnormal Negative [facility] Comment on above: Order Comment: Speci men Type: ARTERIAL BLOOD SPECIMEN Ordering Facility: [facility] Address: [address] [place] [address] Performed By: #### A LLBG #### [facility] CLIA [id number] [address] [place] [address] [place] Leukocyte esterase Test strip Ql (U) Negative Normal Negative [facility] Comment on above: Order Comment: Speci men Type: ARTERIAL BLOOD SPECIMEN Ordering Facility: [facility] Address: [address] [place] [address] Performed By: #### A LLBG #### [facility] CLIA [id number] [address] [place] [address] [place] Nitrite Ql (U) Negative Normal Negative [facility] Comment on above: Order Comment: Speci men Type: ARTERIAL BLOOD SPECIMEN [facility] [facility] Address: [address] [place] [address] Performed By: #### A LLBG #### [facility] CLIA [id number] [address] [place] [address] [place] pH (U) 6.0 [pH] Normal 5.0-8.0 [facility] Comment on above: Order Comment: Speci men Type: ARTERIAL BLOOD SPECIMEN Ordering Facility: [facility] Address: [address] [place] [address] Performed By: #### A LLBG #### [facility] CLIA [id number] [address] [place] [address] [place] Protein (U) [Mass/Vol] Negative Normal Negative [facility] Comment on above: Order Comment: Speci men Type: ARTERIAL BLOOD SPECIMEN Ordering Facility: [facility] Address: [address] [place] [address] Performed By: #### A LLBG #### [facility] CLIA [id number] [address] [place] [address] NAHOMI RBC LM.HPF (Urine sed) [#/Area] 0-3 /HPF Normal 0-3 /HPF [facility] Comment on above: Order Comment: Speci men Type: ARTERIAL BLOOD SPECIMEN Ordering Facility: [facility] Address: [address] [place] [address] Performed By: #### A LLBG #### [facility] CLIA [id number] [address] [place] [address] OF [place] Specific gravity (U) [Rel density] 1.026 Normal 1.005-1.030 [facility] Comment on above: Order Comment: Speci men Type: ARTERIAL BLOOD SPECIMEN Ordering Facility: [facility] Address: [address] [place] [address] Performed By: #### A LLBG #### [facility] CLIA [id number] [address] [place] [address] Urobilinogen Ql (U) Negative Normal Negative [facility] Comment on above: Order Comment: Speci men Type: ARTERIAL BLOOD SPECIMEN Ordering Facility: [facility] Address: [address] [place] [address] Performed By: #### A LLBG #### [facility] CLIA [id number] [address] [place] [address] WBC LM.HPF (Urine sed) [#/Area] 0-5 /HPF Normal 0-5 /HPF [facility] Comment on above: Order Comment: Speci men Type: ARTERIAL BLOOD SPECIMEN Ordering Facility: [facility] Address: [address] [place] [address] Performed By: #### A LLBG #### [facility] CLIA [id number] [address] [place] [address] OF [place] XR CHEST 1V FRONTAL PORTon [...] change in the appearance of the chest. Photo Optics Technician: PSCB Transcribe Date/Time: Mar 16 2025 2:26P Dictated by : JOSE GUADALUPE MOROCHO MD This examination was interpreted and the report reviewed and electronically signed by: JOSE GUADALUPE MOROCHO MD on Mar 16 2025 2:30PM EST [id number] Normal [facility] aPTT PPPon 03-16-2025 aPTT Coag (PPP) [Time] 26.3 s Normal 23.0-32.4 [facility] Comment on above: Order Comment: Speci men Type: BLOOD SPECIMEN Ordering Facility: [facility] Address: [address] [place] [address] Performed By: #### 3 4528-0, 31103-5 #### [facility] CLIA [id number] [address] [place] [address] [address] [facility] ALLIED HEALTHon 03-15-2025 ALLIED HEALTH HNO ID: [id number] Author: SYD CHOUDHARY RT(R) Service: ? Author Type: Call Center Supervisor Type: Allied Health Filed: 03/15/2025 23:51 Note [...] PATIENT PRESENTS WITH AN IMPLANTABLE OR ATTACHED WATER RESOURCE ENGINEER: No RADIOLOGY DEPARTMENT: General X-ray: Exam(s) Completed: Chest X-Ray Abdomen X-Ray: Abdomen PERIPHERAL IV DATA: Not applicable SIGNED BY: Syd Choudhary RT(R) March 15, 2025 11:51 PM [facility] Absolute lymphocyte countOrd ered By: Sudhir Izquierdo on 03-15-2025 Lymphocytes Auto (Unsp spec) [#/Vol] 1.20 10*3/uL 0.83-4.51 [facility] Anion gap in Serum or Plasma Ordered By: Sudhir Izquierdo on 03-15-2025 Anion gap [Moles/Vol] 14 mmol/L 5-15 [facility] Assessment of wrist artery p atency prior to arterial punctureOrdered By: Sudhir Izquierdo on 06-18-2025 Arterial patency Wrist artery --pre arterial puncture Positive [facility] Automated lymphocyte count a s percentage of total leukocytesOrdered By: Sudhir Izquierdo on 03-15-2025 Lymphocytes/100 WBC Auto (Unsp spec) 5.8 % Low 19-41 [facility] BUN/creatinine ratioOrdered By: Sudhir Izquierdo on 03-15-2025 Urea nitrogen/Creatinine [Mass ratio] 15.6 mg/mg 10-20 [facility] Basophil percentageOrdered B y: Sudhir Izquierdo on 03-15-2025 Basophils/100 WBC (Bld) 0.4 % 0-1 [facility] Bilirubin, totalOrdered By: Sudhir Izquierdo on 03-15-2025 Bilirubin [Mass/Vol] 0.24 mg/dL 0.00-1.30 [facility] SERGEI TEST Positive Normal [facility] Comment on above: Performed By: #### L 9000.0800 ####[facility] [address] [place], [address] Base excess Calc (Bld) [Moles/Vol] 0 mmol/L Normal -2 to +2 [facility] Comment on above: Performed By: #### L 9000.0800 ####[facility] [address] [place], [address] Blood Gas Type ART Normal [facility] Comment on above: Performed By: #### L 9000.0800 ####[facility] [address] [place], [address] CO2 [Moles/Vol] 29 mmol/L Normal [facility] Comment on above: Performed By: #### L 9000.0800 ####[facility] [address] [place], [address] FI02 90.0 Normal [facility] Comment on above: Performed By: #### L 9000.0800 ####[facility] [address] [place], [address] HCO3 (Bld) [Moles/Vol] 26.8 mmol/L High 22-26 [facility] Comment on above: Performed By: #### L 9000.0800 ####[facility] [address] [place], [address] Mode AC Normal [facility] Comment on above: Performed By: #### L 9000.0800 ####[facility] [address] [place], [address] O2 Delivery Dev ET Tube Normal [facility] Comment on above: Performed By: #### L 9000.0800 ####[facility] [address] [place], [address] pCO2 59.5 mmHg High 35-45 [facility] Comment on above: Performed By: #### L 9000.0800 ####[facility] [address] [place], [address] PEEP 12 Normal [facility] Comment on above: Performed By: #### L 9000.0800 ####[facility] [address] [place], [address] pH (Bld) 7.26 [pH] Low 7.35-7.45 [facility] Comment on above: Performed By: #### L 9000.0800 ####[facility] [address] [place], [address] PO2 75 mmHG Normal 75-100 [facility] Comment on above: Performed By: #### L 9000.0800 ####[facility] [address] [place], [address] RR 16 Normal [facility] Comment on above: Performed By: #### L 9000.0800 ####[facility] [address] [place], [address] SITE R Radial Normal [facility] Comment on above: Performed By: #### L 9000.0800 ####[facility] [address] [place], [address] SO2 92 Low 95-99 [facility] Comment on above: Performed By: #### L 9000.0800 ####[facility] [address] [place], [address] Vt 450.0 mL Normal [facility] Comment on above: Performed By: #### L 9000.0800 ####[facility] [address] [place], [address] Base excess Calc (Bld) [Moles/Vol] 1 mmol/L Normal -2 to +2 [facility] Comment on above: Performed By: #### L 9000.0800 ####[facility] [address] [place], [address] Blood Gas Type ART Normal [facility] Comment on above: Performed By: #### L 9000.0800 ####[facility] [address] [place], [address] CO2 [Moles/Vol] 32 mmol/L Normal [facility] Comment on above: Performed By: #### L 9000.0800 ####[facility] [address] [place], [address] FI02 100.0 Normal [facility] Comment on above: Performed By: #### L 9000.0800 ####[facility] [address] [place], [address] HCO3 (Bld) [Moles/Vol] 29.3 mmol/L High 22-26 [facility] Comment on above: Performed By: #### L 9000.0800 ####[facility] [address] [place], [address] Mode AC Normal [facility] Comment on above: Performed By: #### L 9000.0800 ####[facility] [address] [place], [address] O2 Delivery Dev Adult Vent [facility] Comment on above: Performed By: #### L 9000.0800 ####[facility] [address] [place], [address] pCO2 77.2 mmHg Invalid Interpretation Code 35-45 [facility] Comment on above: Performed By: #### L 9000.0800 ####[facility] [address] [place], [address] PEEP 12 [facility] Comment on above: Performed By: #### L 9000.0800 ####[facility] [address] [place], [address] pH (Bld) 7.19 [pH] Invalid Interpretation Code 7.35-7.45 [facility] Comment on above: Performed By: #### L 9000.0800 ####[facility] [address] [place], [address] PO2 49 mmHG Low 75-100 [facility] Comment on above: Performed By: #### L 9000.0800 ####[facility] [address] [place], [address] Read Back By Yes [facility] Comment on above: Performed By: #### L 9000.0800 ####[facility] [address] [place], [address] [facility] Comment on above: Performed By: #### L 9000.0800 ####[facility] [address] [place], [address] RR 16 [facility] Comment on above: Performed By: #### L 9000.0800 ####[facility] [address] [place], [address] SITE R Brach Normal [facility] Comment on above: Performed By: #### L 8999.08 ####[facility] [address] [place], [address] SO2 72 Low 95-99 [facility] Comment on above: Performed By: #### L 8999.0800 ####[facility] [address] [place], [address] Time Given 17:53:45 Normal [facility] Comment on above: Performed By: #### L 8999.0800 ####[facility] [address] [place], [address] Vt 400.0 mL Normal [facility] Comment on above: Performed By: #### L 8999.0800 ####[facility] [address] [place], [address] Base excess Calc (Bld) [Moles/Vol] -1 mmol/L Normal -2 to +2 [facility] Comment on above: Performed By: #### L 8999.0800 ####[facility] [address] [place], [address] Blood Gas Type ART Normal [facility] Comment on above: Performed By: #### L 8999.0800 ####[facility] [address] [place], [address] CO2 [Moles/Vol] 31 mmol/L Normal [facility] Comment on above: Performed By: #### L 8999.0800 ####[facility] [address] [place], [address] FI02 100.0 Normal [facility] Comment on above: Performed By: #### L 8999.0800 ####[facility] [address] [place], [address] HCO3 (Bld) [Moles/Vol] 28.5 mmol/L High 22-26 [facility] Comment on above: Performed By: #### L 9000.0800 ####[facility] [address] [place], [address] Mode Not entered Normal [facility] Comment on above: Performed By: #### L 9000.0800 ####[facility] [address] [place], [address] O2 Delivery Dev BiPAP Normal [facility] Comment on above: Performed By: #### L 9000.0800 ####[facility] [address] [place], [address] pCO2 83.5 mmHg Invalid Interpretation Code 35-45 [facility] Comment on above: Performed By: #### L 9000.0800 ####[facility] [address] [place], [address] PEEP 10 Normal [facility] Comment on above: Performed By: #### L 9000.0800 ####[facility] [address] [place], [address] pH (Bld) 7.14 [pH] Invalid Interpretation Code 7.35-7.45 [facility] Comment on above: Performed By: #### L 9000.0800 ####[facility] [address] [place], [address] PO2 74 mmHG Low 75-100 [facility] Comment on above: Performed By: #### L 9000.0800 ####[facility] [address] [place], [address] Read Back By Yes Normal [facility] Comment on above: Performed By: #### L 9000.0800 ####[facility] [address] [place], [address] Results To BR[facility] Comment on above: Performed By: #### L 9000.0800 ####[facility] [address] [place], [address] RR 16 Normal [facility] Comment on above: Performed By: #### L 9000.0800 ####[facility] [address] [place], [address] SITE R Brach [facility] Comment on above: Performed By: #### L 9000.0800 ####[facility] [address] [place], [address] SO2 88 Low 95-99 [facility] Comment on above: Performed By: #### L 9000.0800 ####[facility] [address] [place], [address] Time Given 15:53:31 [facility] Comment on above: Performed By: #### L 9000.0800 ####[facility] [address] [place], [address] Vt 450.0 mL [facility] Comment on above: Performed By: #### L 9000.0800 ####[facility] [address] [place], [address] Base excess Calc (Bld) [Moles/Vol] 0 mmol/L Normal -2 to +2 [facility] Comment on above: Performed By: #### L 9000.0800 ####[facility] [address] [place], [address] Blood Gas Type ART [facility] Comment on above: Performed By: #### L 9000.0800 ####[facility] [address] [place], [address] CO2 [Moles/Vol] 31 mmol/L [facility] Comment on above: Performed By: #### L 9000.0800 ####[facility] [address] [place], [address] FI02 100.0 Normal [facility] Comment on above: Performed By: #### L 9000.0800 ####[facility] [address] [place], [address] HCO3 (Bld) [Moles/Vol] 28.9 mmol/L High 22-26 [facility] Comment on above: Performed By: #### L 9000.0800 ####[facility] [address] [place], [address] Mode BiLevel Normal [facility] Comment on above: Performed By: #### L 9000.0800 ####[facility] [address] [place], [address] O2 Delivery Dev BiPAP Normal [facility] Comment on above: Performed By: #### L 9000.0800 ####[facility] [address] [place], [address] pCO2 79.1 mmHg Invalid Interpretation Code 35-45 [facility] Comment on above: Performed By: #### L 9000.0800 ####[facility] [address] [place], [address] PEEP 10 Normal [facility] Comment on above: Performed By: #### L 9000.0800 ####[facility] [address] [place], [address] pH (Bld) 7.17 [pH] Invalid Interpretation Code 7.35-7.45 [facility] Comment on above: Performed By: #### L 9000.0800 ####[facility] [address] [place], [address] PO2 81 mmHG Normal 75-100 [facility] Comment on above: Performed By: #### L 0.0800 ####[facility] [address] [place], [address] Read Back By Yes [facility] Comment on above: Performed By: #### L 8999.0800 ####[facility] [address] [place], [address] Results To BROWN Normal [facility] Comment on above: Performed By: #### L 0.0800 ####[facility] [address] [place], [address] RR 16 Normal [facility] Comment on above: Performed By: #### L 0.0800 ####[facility] [address] [place], [address] SITE R Brach Normal [facility] Comment on above: Performed By: #### L 8999.0800 ####[facility] [address] [place], [address] SO2 92 Low 95-99 [facility] Comment on above: Performed By: #### L 8999.0800 ####[facility] [address] [place], [address] Time Given 10:48:00 [facility] Comment on above: Performed By: #### L 8999.0800 ####[facility] [address] [place], [address] Vt 450.0 mL Normal [facility] Comment on above: Performed By: #### L 0.0800 ####[facility] [address] [place], [address] SERGEI TEST Positive [facility] Comment on above: Performed By: #### L 0.0800 ####[facility] [address] [place], [address] Base excess Calc (Bld) [Moles/Vol] -3 mmol/L Low -2 to +2 [facility] Comment on above: Performed By: #### L 9000.0800 ####[facility] [address] [place], [address] Blood Gas Type ART Normal [facility] Comment on above: Performed By: #### L 9000.0800 ####[facility] [address] [place], [address] CO2 [Moles/Vol] 28 mmol/L Normal [facility] Comment on above: Performed By: #### L 9000.0800 ####[facility] [address] [place], [address] FI02 100.0 Normal [facility] Comment on above: Performed By: #### L 9000.0800 ####[facility] [address] [place], [address] HCO3 (Bld) [Moles/Vol] 26.1 mmol/L High 22-26 [facility] Comment on above: Performed By: #### L 9000.0800 ####[facility] [address] [place], [address] Mode avaps Normal [facility] Comment on above: Performed By: #### L 9000.0800 ####[facility] [address] [place], [address] O2 Delivery Dev BiPAP Normal [facility] Comment on above: Performed By: #### L 9000.0800 ####[facility] [address] [place], [address] pCO2 75.9 mmHg Invalid Interpretation Code 35-45 [facility] Comment on above: Performed By: #### L 9000.0800 ####[facility] [address] [place], [address] PEEP 10 Normal [facility] Comment on above: Performed By: #### L 9000.0800 ####[facility] [address] [place], [address] pH (Bld) 7.14 [pH] Invalid Interpretation Code 7.35-7.45 [facility] Comment on above: Performed By: #### L 9000.0800 ####[facility] [address] [place], [address] PO2 85 mmHG Normal 75-100 [facility] Comment on above: Performed By: #### L 9000.0800 ####[facility] [address] [place], [address] Read Back By Yes [facility] Comment on above: Performed By: #### L 9000.0800 ####[facility] [address] [place], [address] Results To de dustin Normal [facility] Comment on above: Performed By: #### L 9000.0800 ####[facility] [address] [place], [address] RR 16 Normal [facility] Comment on above: Performed By: #### L 9000.0800 ####[facility] [address] [place], [address] SITE R Radial Normal [facility] Comment on above: Performed By: #### L 9000.0800 ####[facility] [address] [place], [address] SO2 92 Low 95-99 [facility] Comment on above: Performed By: #### L 9000.0800 ####[facility] [address] [place], [address] Time Given 07:33:57 [facility] Comment on above: Performed By: #### L 9000.0800 ####[facility] [address] [place], [address] Vt 450.0 mL Normal [facility] Comment on above: Performed By: #### L 8999.0800 ####[facility] [address] [place], [address] SERGEI TEST N/A Normal [facility] Comment on above: Performed By: #### L 8999.0800 ####[facility] [address] [place], [address] Base excess Calc (Bld) [Moles/Vol] -3 mmol/L Low -2 to +2 [facility] Comment on above: Performed By: #### L 8999.0800 ####[facility] [address] [place], [address] Blood Gas Type ART Normal [facility] Comment on above: Performed By: #### L 8999.0800 ####[facility] [address] [place], [address] CO2 [Moles/Vol] 28 mmol/L Normal [facility] Comment on above: Performed By: #### L 8999.0800 ####[facility] [address] [place], [address] FI02 92.0 Normal [facility] Comment on above: Performed By: #### L 0.0800 ####[facility] [address] [place], [address] HCO3 (Bld) [Moles/Vol] 25.8 mmol/L Normal 22-26 [facility] Comment on above: Performed By: #### L 0.0800 ####[facility] [address] [place], [address] Mode 60L Normal [facility] Comment on above: Performed By: #### L 0.0800 ####[facility] [address] [place], [address] O2 Delivery Dev AIRVO Normal [facility] Comment on above: Performed By: #### L 9000.0800 ####[facility] [address] [place], [address] pCO2 71.3 mmHg Invalid Interpretation Code 35-45 [facility] Comment on above: Performed By: #### L 9000.0800 ####[facility] [address] [place], [address] pH (Bld) 7.17 [pH] Invalid Interpretation Code 7.35-7.45 [facility] Comment on above: Performed By: #### L 9000.0800 ####[facility] [address] [place], [address] PO2 67 mmHG Low 75-100 [facility] Comment on above: Performed By: #### L 9000.0800 ####[facility] [address] [place], [address] Read Back By Yes [facility] Comment on above: Performed By: #### L 0.0800 ####[facility] [address] [place], [address] Monk [facility] Comment on above: Performed By: #### L 0.0800 ####[facility] [address] [place], [address] SITE R Brach Normal [facility] Comment on above: Performed By: #### L 9000.0800 ####[facility] [address] [place], [address] SO2 86 Low 95-99 [facility] Comment on above: Performed By: #### L 9000.0800 ####[facility] [address] [place], [address] Time Given 06:03:13 Normal [facility] Comment on above: Performed By: #### L 9000.0800 ####[facility] [address] [place], [address] Blood base excess determinat ionOrdered By: Sudhir Izquierdo on 03-15-2025 Base excess Calc (BldV) [Moles/Vol] 0 mmol/L -2-2 [facility] Blood bicarbonate measuremen tOrdered By: Sudhir Izquierdo on 03-15-2025 HCO3 (Bld) [Moles/Vol] 26.8 mmol/L High 22-26 [facility] CBC W/Diff, Automatedon 02-26 Absolute Lymph 1.20 X10 3/uL Normal 0.83-4.51 [facility] Comment on above: Performed By: #### L 500.4050, L100.0100 ####[facility] [address] [place], [address] Absolute Neut 17.4 X10 3/uL High 2.0-7.7 [facility] Comment on above: Performed By: #### L 500.4050, L100.0100 ####[facility] [address] [place], [address] Basophils/100 WBC (Bld) 0.4 % Normal 0-1 [facility] Comment on above: Performed By: #### L 500.4050, L100.0100 ####[facility] [address] [place] [place], [address] Eosinophils/100 WBC (Bld) 0.3 % Normal 0-5 [facility] Comment on above: Performed By: #### L 500.4050, L100.0100 ####[facility] [address] [place], [address] Erythrocyte distribution width (RBC) [Ratio] 14.6 % Normal 11.6-14.6 [facility] Comment on above: Performed By: #### L 500.4050, L100.0100 ####[facility] [address] [place], [address] Hematocrit (Bld) [Volume fraction] 37.1 % Normal 37-47 [facility] Comment on above: Performed By: #### L 500.4050, L100.0100 ####[facility] [address] [place], [address] Hemoglobin (Bld) [Mass/Vol] 10.9 g/dL Low 12.0-15.0 [facility] Comment on above: Performed By: #### L 500.4050, L100.0100 ####[facility] [address] [place], [address] IG% 3.800 High 0.0-0.9 [facility] Comment on above: Result Comment: IG% - Immature Granulocytes (promyelocytes, myelocytes andmetamyelocytes) > 1% indicates that a LEFT SHIFT is Present. Performed By: #### L 500.4050, L100.0100 ####[facility] [address] [place], [address] Lymphocytes/100 WBC (Bld) 5.8 % Low 19-41 [facility] Comment on above: Performed By: #### L 500.4050, L100.0100 ####[facility] [address] [place], [address] MCH (RBC) [Entitic mass] 26.3 pg Low 27.0-32.0 [facility] Comment on above: Performed By: #### L 500.4050, L100.0100 ####[facility] [address] [place], [address] MCHC (RBC) [Mass/Vol] 29.4 g/dL Low 32-36 [facility] Comment on above: Performed By: #### L 500.4050, L100.0100 ####[facility] [address] [place], [address] MCV (RBC) [Entitic vol] 89.4 fL Normal 81-99 [facility] Comment on above: Performed By: #### L 500.4050, L100.0100 ####[facility] [address] [place], [address] Monocytes/100 WBC (Bld) 6.1 % Normal 0-10 [facility] Comment on above: Performed By: #### L 500.4050, L100.0100 ####[facility] [address] [place], [address] Neutrophils/100 WBC (Bld) 83.6 % High 47-70 [facility] Comment on above: Performed By: #### L 500.4050, L100.0100 ####[facility] [address] [place], [address] Nucleated RBC (Bld) [#/Vol] 0 10*3/uL Normal 0-5 [facility] Comment on above: Performed By: #### L 500.4050, L100.0100 ####[facility] [address] [place], [address] Platelet mean volume (Bld) [Entitic vol] 10.1 fL Normal 6.2-12.0 [facility] Comment on above: Performed By: #### L 500.4050, L100.0100 ####[facility] [address] [place], [address] Platelets (Bld) [#/Vol] 315 10*3/uL Normal 150-450 [facility] Comment on above: Performed By: #### L 500.4050, L100.0100 ####[facility] [address] [place], [address] RBC (Bld) [#/Vol] 4.15 10*6/uL Low 4.2-5.4 [facility] Comment on above: Performed By: #### L 500.4050, L100.0100 ####[facility] [address] [place], [address] RDW SD 48.1 fl High 35.1-43.9 [facility] Comment on above: Performed By: #### L 500.4050, L100.0100 ####[facility] [address] [place], [address] WBC (Bld) [#/Vol] 20.8 10*3/uL High 4.4-11.0 [facility] Comment on above: Performed By: #### L 500.4050, L100.0100 ####[facility] [address] [place], [address] CNCRITCRon 03-15-2025 CNCRITCR Critical Care Transp ort (CCT) -------- GRACIE BANUELOS Salvatore ([id number]) 1965 F Date Time Provider Department 03/15/25 MAKSIM [facility] CCT During your visit today, we recorded the following information about you: Maksim [place] APRN.CNP 03/16/2025 7:05 AM Signed CRITICAL CARE TRANSPORT MEDICAL CONTROL CONSULT NOTE Patient Name: Gracie Banuelos Service Date: March 16, 2025 Referring Facility: [facility] Accepting Facility: [facility] REASON FOR TRANSPORT: Higher level intensive care services not available at the referring facility REASON FOR CONSULT: Hypotension and Sedation CCT MEDICAL CONTROL CONSULT SUMMARY: History, physical exam findings, and available background patient information from CCT Transport Nurse were reviewed at the time of consult. Pertinent additional information was reviewed as follows: [facility] transport request log In brief, Gracie Banuelos is a 59 year old female with a history, known at time of consult, significant for Smoking and COPD (5L N/C at home) who was admitted to [facility] for evaluation of Acute on Chronic [...] HCO3 26.8. Patient is being transferred to [facility] for higher level intensive care services not [...] confirmed and read back via telephone with [facility] Transport research assistant member, Dung Coe, Cigar Maker SIGNATURE: Maksim [place] APRN.[facility] Acute Care Nurse Practitioner Critical Care Transport [...] Pressure Monitor (more content not included)... Normal [facility] CXR for Line Placementon CXR for Line Placement Normal [facility] Carbon dioxide, total [Moles /volume] in Central venous bloodOrdered By: Sudhir Izquierdo on 03-15-2025 CO2 [Moles/Vol] 22.5 mmol/L 21.0-32.0 [facility] Chest 1 View (Portable)on Chest 1 View (Portable) Normal [facility] Chloride assayOrdered By: Rosana Izquierdo on 03-15-2025 Chloride [Moles/Vol] 103 mmol/L 98-108 [facility] Comprehensive Metabolic Prof ilon 03-15-2025 Albumin [Mass/Vol] 3.5 g/dL Normal 3.4-4.8 [facility] Comment on above: Performed By: #### L 500.4050, L100.0100 ####[facility] [address] [place], [address] Albumin/Globulin [Mass ratio] 1.0 {ratio} Normal 0.9-2.4 [facility] Comment on above: Performed By: #### L 500.4050, L100.0100 ####[facility] [address] [place], [address] ALK PHOS 191 U/L High 35-104 [facility] Comment on above: Performed By: #### L 500.4050, L100.0100 ####[facility] [address] [place], [address] ALT [Catalytic activity/Vol] 24 U/L Normal <=34 [facility] Comment on above: Performed By: #### L 500.4050, L100.0100 ####[facility] [address] [place], [address] AST [Catalytic activity/Vol] 18 U/L Normal <=31 [facility] Comment on above: Performed By: #### L 500.4050, L100.0100 ####[facility] [address] [place], [address] Bilirubin [Mass/Vol] 0.24 mg/dL Normal 0.00-1.30 [facility] Comment on above: Performed By: #### L 500.4050, L100.0100 ####[facility] [address] [place], [address] BUN/CRE 15.6 RATIO Normal 10-20 [facility] Comment on above: Performed By: #### L 500.4050, L100.0100 ####[facility] [address] [place], [address] Calcium [Mass/Vol] 9.4 mg/dL Normal 7.6-11.0 [facility] Comment on above: Performed By: #### L 500.4050, L100.0100 ####[facility] [address] [place], [address] Chloride [Moles/Vol] 103 mmol/L Normal 98-108 [facility] Comment on above: Performed By: #### L 500.4050, L100.0100 ####[facility] [address] [place], [address] CO2 [Moles/Vol] 22.5 mmol/L Normal 21.0-32.0 [facility] Comment on above: Performed By: #### L 500.4050, L100.0100 ####[facility] [address] [place], [address] Creatinine [Mass/Vol] 0.73 mg/dL Normal 0.70-1.20 [facility] Comment on above: Performed By: #### L 500.4050, L100.0100 ####[facility] [address] [place], [address] ECRCL 72.87 ml/min Normal 50-250 [facility] Comment on above: Performed By: #### L 500.4050, L100.0100 ####[facility] [address] [place], [address] GAP 14 Normal 5-15 [facility] Comment on above: Performed By: #### L 500.4050, L100.0100 ####[facility] [address] [place], [address] GFR/1.73 sq M.predicted among non-blacks MDRD (S/P/Bld) [Vol rate/Area] 94 mL/min/{1.73_m2} Normal >60 [facility] Comment on above: Result Comment: mL/m in/1.73m2 CKD-EPI Creatinine Equation (2020) Performed By: #### L 500.4050, L100.0100 ####[facility] [address] [place], [address] Globulin (S) [Mass/Vol] 3.4 g/dL Normal 2.2-4.2 [facility] Comment on above: Performed By: #### L 500.4050, L100.0100 ####[facility] [address] [place], [address] Glucose [Mass/Vol] 83 mg/dL Normal 70-99 [facility] Comment on above: Performed By: #### L 500.4050, L100.0100 ####[facility] [address] [place], [address] Potassium [Moles/Vol] 4.4 mmol/L Normal 3.3-5.1 [facility] Comment on above: Performed By: #### L 500.4050, L100.0100 ####[facility] [address] [place], [address] Sodium [Moles/Vol] 140 mmol/L Normal 133-145 [facility] Comment on above: Performed By: #### L 500.4050, L100.0100 ####[facility] [address] [place], [address] T PROT 6.9 g/dL Normal 5.9-8.4 [facility] Comment on above: Performed By: #### L 500.4050, L100.0100 ####[facility] [address] [place], [address] Urea nitrogen [Mass/Vol] 11 mg/dL Normal 4-19 [facility] Comment on above: Performed By: #### L 500.4050, L100.0100 ####[facility] [address] [place], [address] Consultation - Intensiviston 03-15-2025 Consultation - Laundry Operator Finishing Normal [facility] Eosinophil percentageOrdered By: Sudhir Izquierdo on 03-15-2025 Eosinophils/100 WBC (Bld) 0.3 % 0-5 [facility] Erythrocyte distribution wid th ratioOrdered By: Sudhir Izquierdo on 03-15-2025 Erythrocyte distribution width (RBC) [Ratio] 14.6 % 11.6-14.6 [facility] Erythrocyte distribution wid th standard deviationOrdered By: Sudhir Izquierdo on 03-15-2025 Erythrocyte distribution width (RBC) [Ratio] 48.1 fl High 35.1-43.9 [facility] Glomerular filtration rate ( GFR) estimation/1.73 sq m using serum, plasma, or whole bOrdered By: Sudhir Izquierdo on 03-15-2025 GFR/1.73 sq M.predicted among non-blacks MDRD (S/P/Bld) [Vol rate/Area] 94 mL/min/{1.73_m2} >60 [facility] Gram stainOrdered By: Gonzalo Sebastian on 03-15-2025 Microscopic observation Gram stain Nom (Unsp spec) [facility] HISTORY PHYSICALon HISTORY PHYSICAL HNO ID: [id number] Author: CURT PAEZ APRN.CNP Service: Critical Care Author Type: Nurse Practitioner Type: H&P Filed: 03/16/2025 00:38 Note Text: [facility] PULMONARY AND CRITICAL CARE SERVICE DATE: March 15, 2025 SERVICE TIME: 8:49 PM Consulting Doctor: Dr. Ana Paula LOTT - [facility] CHIEF COMPLAINT: Acute on chronic hypoxic respiratory failure, severe sepsis HPI: This 59 year old female who came to [facility] today from [facility] for acute on chronic hypoxic respiratory failure requiring intubation and ventilator dependence. Patient has a history of alcoholic pancreatitis. 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 She was recently admitted to [facility] where she was seen by GI specialist Dr. Garrido and had a pancreatic stent placed on Thursday. Per report from patient, she had been having worsening epigastric pain since then. She denied infectious symptoms, shortness of breath, chest pain, urinary symptoms, diarrhea, or constipation. She has a history of COPD and is on 5 L nasal cannula at baseline. Patient went to [facility] on 03/13 for this epigastric pain. [...] scan. Given her recent stent placement at [facility], initiation of transfer made and was accepted. Unfortunately, no bed available at that time therefore patient admitted to [facility] for pain management and fluid resuscitation. While admitted, patient respiratory status continued to worsen. She required high flow nasal cannula and subsequently intubation while in their ICU. Per report, patient unable to be adequately oxygenated and more emergent transfer was sought out. Patient able to be transferred to regional [facility] therefore [facility] was contacted. Patient was discussed extensively with physician and ICU team here at [facility]. Patient ultimately accepted for transfer. Upon arrival [...] on vasopressin. Family en route to [facility]. Orders placed. PAST MEDICAL HISTORY: SEE [...] 3 severe COPD by GOLD classification ([facility]) 2018 Tobacco use greater than 30 years [...] Hematocrit (Bld) [Volume fraction] 37.1 % 37-47 [facility] Hemoglobin measurementOrdere d By: Sudhir Izquierdo on 03-15-2025 Hemoglobin (Bld) [Mass/Vol] 10.9 g/dL Low 12.0-15.0 [facility] Immature granulocytes/100 WB C Auto (Bld)Ordered By: Sudhir Izquierdo on 03-15-2025 Immature granulocytes/100 WBC (Bld) 3.800 % High 0.0-0.9 [facility] L503.7505on 03-15-2025 Natriuretic peptide B (Bld) [Mass/Vol] 4257 pg/mL High <=900 [facility] Comment on above: Result Comment: Hear t Failure Unlikely: < 300 pg/mLHeart Failure Likely< 50 Years: > 450 pg/mL50-75 Years: > 900 pg/mL>75 Years: > 1800 pg/mL Performed By: #### L 503.7505 ####[facility] [address] [facility]. [place], [place], [address] L509.7001on 03-15-2025 Procalcitonin 0.28 ng/mL High <=0.10 [facility] Comment on above: Result Comment: Inte rpretation:<0.10-0.25 ng/mL: Antibiotic therapy discouraged. Bacterialinfection unlikely.0.25-0.50 ng/mL: Antibiotic therapy encouraged. Bacterialinfection possible.>0.50 ng/mL: Antibiotic therapy strongly encouraged.Suggestive of presence of bacterial infection.PCT should always be interpreted in the clinical context ofthe patient. Therefore, clinicians should use the PCTresults in conjunction with other laboratory findings andclinical signs of the patient. Performed By: #### L 509.7001 ####[facility] [address] [facility] [place], [place], [address] MCV (mean corpuscular volume ) determinationOrdered By: Sudhir Izquierdo on 03-15-2025 MCV (RBC) [Entitic vol] 89.4 fL 81-99 [facility] Mean corpuscular hemoglobin (MCH) determinationOrdered By: Sudhir Izquierdo on 03-15-2025 MCH (RBC) [Entitic mass] 26.3 pg Low 27.0-32.0 [facility] Measurement, pHOrdered By: Nathalia Izquierdo on 03-15-2025 pH (Unsp spec) 7.26 [pH] Low 7.35-7.45 [facility] Microbial respiratory cultur eOrdered By: Gonzalo Sebastian on 03-15-2025 Microorganism identified Cx Nom (Unsp spec) Streptococcus pneumoniae Abnormal [facility] Microorganism identified Cx Nom (Unsp spec) Staphylococcus aureus Abnormal [facility] Monocyte percentageOrdered B y: Sudhir Izquierdo on 03-15-2025 Monocytes/100 WBC (Bld) 6.1 % 0-10 [facility] Natriuretic peptide.B prohor marium N-Terminal [Mass/volume] in Serum or PlasmaOrdered By: Jackson Chopra on 03-15-2025 Natriuretic peptide.B prohormone N-Terminal [Mass/Vol] 4257 pg/mL High <900 [facility] Neutrophil percentageOrdered By: Sudhir Izquierdo on 03-15-2025 Neutrophils/100 WBC (Bld) 83.6 % High 47-70 [facility] No Panel InformationOrdered By: Sudhir Izquierdo on 03-15-2025 ART [facility] R Radial [facility] AC [facility] ET Tube [facility] 450.0 mL [facility] 16 [facility] 12 [facility] 17:53:45 [facility] BROWN [facility] Yes [facility] 18 U/L <32 [facility] Platelet countOrdered By: Rosana Izquierdo on 03-15-2025 Platelets (Bld) [#/Vol] 315 10*3/uL 150-450 [facility] Potassium measurement (mass/ volume)Ordered By: Sudhir Izquierdo on 03-15-2025 Potassium (Unsp spec) [Mass/Vol] 4.4 mmol/L 3.3-5.1 [facility] Procalcitonin [Mass/volume] in Serum or Plasma by ImmunoassayOrdered By: Gonzalo Sebastian on 03-15-2025 Procalcitonin IA [Mass/Vol] 0.28 ng/mL High <0.11 [facility] RBC Auto (Bld) [#/Vol]Ordere d By: Sudhir Izquierdo on 03-15-2025 RBC (Bld) [#/Vol] 4.15 10*6/uL Low 4.2-5.4 [facility] Serum creatinine measurement (mass/volume)Ordered By: Sudhir Izquierdo on 03-15-2025 Creatinine [Mass/Vol] 0.73 mg/dL 0.70-1.20 [facility] Serum globulin measurementOr dered By: Sudhir Izquierdo on 03-15-2025 Globulin (S) [Mass/Vol] 3.4 g/dL 2.2-4.2 [facility] Serum glucose measurement (m ass/volume)Ordered By: Sudhir Izquierdo on 03-15-2025 Glucose [Mass/Vol] 83 mg/dL 70-99 [facility] Serum or plasma alanine pimentel otransferase (ALT) measurementOrdered By: Sudhir Izquierdo on 03-15-2025 ALT [Catalytic activity/Vol] 24 U/L <35 [facility] Serum or plasma albumin esthela urement (mass/volume)Ordered By: Sudhir Izquierdo on 03-15-2025 Albumin [Mass/Vol] 3.5 g/dL 3.4-4.8 [facility] Serum or plasma albumin/glob ulin mass ratioOrdered By: Sudhir Izquierdo on 03-15-2025 Albumin/Globulin [Mass ratio] 1.0 {ratio} 0.9-2.4 [facility] Serum or plasma alkaline jose sphatase measurementOrdered By: Sudhir Izquierdo on 03-15-2025 ALP [Catalytic activity/Vol] 191 U/L High 35-104 [facility] Serum or plasma calcium esthela urement (mass/volume)Ordered By: Sudhir Izquierdo on 03-15-2025 Calcium [Mass/Vol] 9.4 mg/dL 7.6-11.0 [facility] Serum or plasma urea nitroge n measurement (mass/volume)Ordered By: Sudhir Izquierdo on 03-15-2025 Urea nitrogen [Mass/Vol] 11 mg/dL 4-19 [facility] Sodium levelOrdered By: Sebastian Izquierdo on 03-15-2025 Sodium [Moles/Vol] 140 mmol/L 133-145 [facility] Total carbon dioxide measure mentOrdered By: Sudhir Izquierdo on 03-15-2025 CO2 [Moles/Vol] 29 mmol/L [facility] Total proteinOrdered By: Luis Izquierdo on 03-15-2025 Protein [Mass/Vol] 6.9 g/dL 5.9-8.4 [facility] Urine Cultureon 03-15-2025 URC Mixed Gram Positive Organisms [place] Count 80,000-100,000 MIXC Mixed contaminants. Submit a new specimen if indicated. Normal [facility] Comment on above: Performed By: #### M 100.2200 ####[facility] [address] [place], [address] White blood cell (WBC) count Ordered By: Sudhir Izquierdo on 03-15-2025 WBC (Bld) [#/Vol] 20.8 10*3/uL High 4.4-11.0 [facility] XR ABDOMEN 1V SUPINEon 03-15 XR [...] Evaluate tube, line, or lead position (accession [id number]), Evaluate tube, line or lead position (accession [id number]) , establish chronic pancreatitis. MQ: XCPR_5 Comparison: [...] Bilateral pleural effusions with nonspecific retrocardiac opacity. Photo Optics Technician: [employer] Transcribe Date/Time: Mar 16 2025 1:30A Dictated by : SUELLEN SÁNCHEZ MD This examination was interpreted and the report reviewed and electronically signed by: SUELLEN SÁNCHEZ MD on Mar 16 2025 1:33AM EST [id number] Normal [facility] XR CHEST 1V FRONTAL PORTon 0 03-15-2025 [...] Evaluate tube, line, or lead position (accession [id number]), Evaluate tube, line or lead position (accession [id number]) , establish chronic pancreatitis. MQ: XCPR_5 Comparison: [...] Bilateral pleural effusions with nonspecific retrocardiac opacity. Photo Optics Technician: PSCTova Transcribe Date/Time: Mar 16 2025 1:30A Dictated by : SUELLEN SÁNCHEZ MD This examination was interpreted and the report reviewed and electronically signed by: SUELLEN SÁNCHEZ MD on Mar 16 2025 1:33AM EST [id number] Normal [facility] CBC W/Diff, Automatedon - Absolute Lymph 1.97 X10 3/uL Normal 0.83-4.51 [facility] Comment on above: Performed By: #### L 100.0100 ####[facility] [address] [place], [address] Absolute Neut 17.9 X10 3/uL High 2.0-7.7 [facility] Comment on above: Performed By: #### L 100.0100 ####[facility] [address] [place], [address] Basophils/100 WBC (Bld) 0.4 % Normal 0-1 [facility] Comment on above: Performed By: #### L 100.0100 ####[facility] [address] [place], [address] Eosinophils/100 WBC (Bld) 1.2 % Normal 0-5 [facility] Comment on above: Performed By: #### L 100.0100 ####[facility] [address] [place], [address] Erythrocyte distribution width (RBC) [Ratio] 14.8 % High 11.6-14.6 [facility] Comment on above: Performed By: #### L 100.0100 ####[facility] [address] [place], [address] Hematocrit (Bld) [Volume fraction] 33.5 % Low 37-47 [facility] Comment on above: Performed By: #### L 100.0100 ####[facility] [address] [place], [address] Hemoglobin (Bld) [Mass/Vol] 9.9 g/dL Low 12.0-15.0 [facility] Comment on above: Performed By: #### L 100.0100 ####[facility] [address] [place], [address] IG% 1.300 High 0.0-0.9 [facility] Comment on above: Result Comment: IG% - Immature Granulocytes (promyelocytes, myelocytes andmetamyelocytes) > 1% indicates that a LEFT SHIFT is Present. Performed By: #### L 100.0100 ####[facility] [address] [place], [address] Lymphocytes/100 WBC (Bld) 9.0 % Low 19-41 [facility] Comment on above: Performed By: #### L 100.0100 ####[facility] [address] [place], [address] MCH (RBC) [Entitic mass] 26.3 pg Low 27.0-32.0 [facility] Comment on above: Performed By: #### L 100.0100 ####[facility] [address] [place], [address] MCHC (RBC) [Mass/Vol] 29.6 g/dL Low 32-36 [facility] Comment on above: Performed By: #### L 100.0100 ####[facility] [address] [place], [address] MCV (RBC) [Entitic vol] 88.9 fL Normal 81-99 [facility] Comment on above: Performed By: #### L 100.0100 ####[facility] [address] [place], [address] Monocytes/100 WBC (Bld) 6.4 % Normal 0-10 [facility] Comment on above: Performed By: #### L 100.0100 ####[facility] [address] [place], [address] Neutrophils/100 WBC (Bld) 81.7 % High 47-70 [facility] Comment on above: Performed By: #### L 100.0100 ####[facility] [address] [place], [address] Nucleated RBC (Bld) [#/Vol] 0 10*3/uL Normal 0-5 [facility] Comment on above: Performed By: #### L 100.0100 ####[facility] [address] [place], [address] Platelet mean volume (Bld) [Entitic vol] 10.8 fL Normal 6.2-12.0 [facility] Comment on above: Performed By: #### L 100.0100 ####[facility] [address], [address] Platelets (Bld) [#/Vol] 263 10*3/uL Normal 150-450 [facility] Comment on above: Performed By: #### L 100.0100 ####[facility] [address] [place], [address] RBC (Bld) [#/Vol] 3.77 10*6/uL Low 4.2-5.4 [facility] Comment on above: Performed By: #### L 100.0100 ####[facility] [address] [place], [address] RDW SD 48.7 fl High 35.1-43.9 [facility] Comment on above: Performed By: #### L 100.0100 ####[facility] [address] [place], [address] WBC (Bld) [#/Vol] 21.9 10*3/uL High 4.4-11.0 [facility] Comment on above: Performed By: #### L 100.0100 ####[facility] [address] [place], [address] Comprehensive Metabolic Prof ilon 03-14-2025 Albumin [Mass/Vol] 3.5 g/dL Normal 3.4-4.8 [facility] Comment on above: Performed By: #### L 501.2450, L500.4050 ####[facility] [address] [place], [address] Albumin/Globulin [Mass ratio] 1.1 {ratio} Normal 0.9-2.4 [facility] Comment on above: Performed By: #### L 501.2450, L500.4050 ####[facility] [address] [place], [address] ALK PHOS 188 U/L High 35-104 [facility] Comment on above: Performed By: #### L 501.2450, L500.4050 ####[facility] [address] [place], [address] ALT [Catalytic activity/Vol] 29 U/L Normal <=34 [facility] Comment on above: Performed By: #### L 501.2450, L500.4050 ####[facility] [address] [place], [address] AST [Catalytic activity/Vol] 22 U/L Normal <=31 [facility] Comment on above: Performed By: #### L 501.2450, L500.4050 ####[facility] [address] [place], [address] Bilirubin [Mass/Vol] 0.23 mg/dL Normal 0.00-1.30 [facility] Comment on above: Performed By: #### L 501.2450, L500.4050 ####[facility] [address] [place], [address] BUN/CRE 20.6 RATIO High 10-20 [facility] Comment on above: Performed By: #### L 501.2450, L500.4050 ####[facility] [address] [place], [address] Calcium [Mass/Vol] 9.1 mg/dL Normal 7.6-11.0 [facility] Comment on above: Performed By: #### L 501.2450, L500.4050 ####[facility] [address] [place], [address] Chloride [Moles/Vol] 101 mmol/L Normal 98-108 [facility] Comment on above: Performed By: #### L 501.2450, L500.4050 ####[facility] [address] [place], [address] CO2 [Moles/Vol] 24.2 mmol/L Normal 21.0-32.0 [facility] Comment on above: Performed By: #### L 501.2450, L500.4050 ####[facility] [address] [place], [address] Creatinine [Mass/Vol] 0.90 mg/dL Normal 0.70-1.20 [facility] Comment on above: Performed By: #### L 501.2450, L500.4050 ####[facility] [address] [place], [address] ECRCL 59.11 ml/min Normal 50-250 [facility] Comment on above: Performed By: #### L 501.2450, L500.4050 ####[facility] [address] [place], [address] GAP 15 Normal 5-15 [facility] Comment on above: Performed By: #### L 501.2450, L500.4050 ####[facility] [address] [place], [address] GFR/1.73 sq M.predicted among non-blacks MDRD (S/P/Bld) [Vol rate/Area] 73 mL/min/{1.73_m2} Normal >60 [facility] Comment on above: Result Comment: mL/m in/1.73m2 CKD-EPI Creatinine Equation (2020) Performed By: #### L 501.2450, L500.4050 ####[facility] [address] [place], [address] Globulin (S) [Mass/Vol] 3.1 g/dL Normal 2.2-4.2 [facility] Comment on above: Performed By: #### L 501.2450, L500.4050 ####[facility] [address] [place], [address] Glucose [Mass/Vol] 64 mg/dL Low 70-99 [facility] Comment on above: Performed By: #### L 501.2450, L500.4050 ####[facility] [address] [place], [address] Potassium [Moles/Vol] 4.1 mmol/L Normal 3.3-5.1 [facility] Comment on above: Performed By: #### L 501.2450, L500.4050 ####[facility] [address] [place], [address] Sodium [Moles/Vol] 140 mmol/L Normal 133-145 [facility] Comment on above: Performed By: #### L 501.2450, L500.4050 ####[facility] [address] [place], [address] T PROT 6.6 g/dL Normal 5.9-8.4 [facility] Comment on above: Performed By: #### L 501.2450, L500.4050 ####[facility] [address] [place], [address] Urea nitrogen [Mass/Vol] 19 mg/dL Normal 4-19 [facility] Comment on above: Performed By: #### L 501.2450, L500.4050 ####[facility] [address] [place], [address] Lipaseon 03-14-2025 Lipase [Catalytic activity/Vol] 362 U/L High 13-75 [facility] Comment on above: Result Comment: Jenny capellan note:LIPASE revised reference range effective 23.New Lipase methodology. Expected to produce lower valuesthan the previous assay method.NEW Reference Range: 13 - 75 U/L Performed By: #### L 501.2450, L500.4050 ####[facility] [address] [place], [address] Abdomen/Pelvis W IV Cont ONL Yon 03-13-2025 Abdomen/Pelvis W IV Cont ONLY Normal [facility] Absolute lymphocyte countOrd ered By: Macario Alex on 03-13-2025 Lymphocytes Auto (Unsp spec) [#/Vol] 1.85 10*3/uL 0.83-4.51 [facility] Alcohol, Blood (Medical)-Ser umon 03-13-2025 SERUM ETOH < 10.1 Normal <=10.0 [facility] Comment on above: Result Comment: This test is for medical purposes only. The legaldefinition of intoxication varies according to local law. Performed By: #### L 501.9100 ####[facility] [address] [place], [address] Anion gap in Serum or Plasma Ordered By: Macario Alex on 03-13-2025 Anion gap [Moles/Vol] 14 mmol/L 5-15 [facility] Automated lymphocyte count a s percentage of total leukocytesOrdered By: Macario Alex on 03-13-2025 Lymphocytes/100 WBC Auto (Unsp spec) 6.3 % Low 19-41 [facility] BUN/creatinine ratioOrdered By: Macario Alex on 03-13-2025 Urea nitrogen/Creatinine [Mass ratio] 16.9 mg/mg 07-17 [facility] Basic Metabolic Profile (BMP )on 03-13-2025 BUN/CRE 16.9 RATIO Normal 07-17 [facility] Comment on above: Performed By: #### L 501.2450, L500.3400, L500.2500 ####[facility] [address] [place], [address] Calcium [Mass/Vol] 9.5 mg/dL Normal 7.6-11.0 [facility] Comment on above: Performed By: #### L 501.2450, L500.3400, L500.2500 ####[facility] [address] [place], [address] Chloride [Moles/Vol] 92 mmol/L Low 98-108 [facility] Comment on above: Performed By: #### L 501.2450, L500.3400, L500.2500 ####[facility] [address] [place], [address] CO2 [Moles/Vol] 28.0 mmol/L Normal 21.0-32.0 [facility] Comment on above: Performed By: #### L 501.2450, L500.3400, L500.2500 ####[facility] [address] [place], [address] Creatinine [Mass/Vol] 0.84 mg/dL Normal 0.70-1.20 [facility] Comment on above: Performed By: #### L 501.2450, L500.3400, L500.2500 ####[facility] [address] [place], [address] ECRCL 58.18 ml/min Normal 50-250 [facility] Comment on above: Performed By: #### L 501.2450, L500.3400, L500.2500 ####[facility] [address] [place], [address] GAP 14 Normal 5-15 [facility] Comment on above: Performed By: #### L 501.2450, L500.3400, L500.2500 ####[facility] [address] [place], [address] GFR/1.73 sq M.predicted among non-blacks MDRD (S/P/Bld) [Vol rate/Area] 79 mL/min/{1.73_m2} Normal >60 [facility] Comment on above: Result Comment: mL/m in/1.73m2 CKD-EPI Creatinine Equation (2020) Performed By: #### L 501.2450, L500.3400, L500.2500 ####[facility] [address] [place], [address] Glucose [Mass/Vol] 100 mg/dL High 70-99 [facility] Comment on above: Performed By: #### L 501.2450, L500.3400, L500.2500 ####[facility] [address] [place], [address] Potassium [Moles/Vol] 3.6 mmol/L Normal 3.3-5.1 [facility] Comment on above: Performed By: #### L 501.2450, L500.3400, L500.2500 ####[facility] [address] [place], [address] Sodium [Moles/Vol] 134 mmol/L Normal 133-145 [facility] Comment on above: Performed By: #### L 501.2450, L500.3400, L500.2500 ####[facility] [address] [place], [address] Urea nitrogen [Mass/Vol] 14 mg/dL Normal 4-19 [facility] Comment on above: Performed By: #### L 501.2450, L500.3400, L500.2500 ####[facility] [address] [place] [place], [address] Basophil percentageOrdered B y: Macario Alex on 03-13-2025 Basophils/100 WBC (Bld) 0.4 % 0-1 [facility] Bilirubin Test strip Ql (U)O rdered By: Macario Alex on 03-13-2025 Bilirubin Ql (U) Negative Negative [facility] Bilirubin directOrdered By: Macario Alex on 03-13-2025 Bilirubin.direct [Mass/Vol] 0.29 mg/dL 0.00-0.30 [facility] Bilirubin, totalOrdered By: Macario Alex on 03-13-2025 Bilirubin [Mass/Vol] 0.49 mg/dL 0.00-1.30 [facility] Blood manual differential co mment interpretation (narrative result)Ordered By: Macario Alex on 03-13-2025 Manual differential comment Geovany (Bld) [Interp] SCANNED [facility] CBC W/Diff, Automatedon 06 SMEAR COMMENT SCANNED Normal [facility] Comment on above: Result Comment: NEUT ROPHILIA NOTEDMONOCYTOSIS NOTED Performed By: #### L 503.6005, L100.0100 ####[facility] [address] [place], [address] Carbon dioxide, total [Moles /volume] in Central venous bloodOrdered By: Macario Alex on 03-13-2025 CO2 [Moles/Vol] 28.0 mmol/L 21.0-32.0 [facility] Chest PA and Lateralon 03-13 Chest PA and Lateral Normal [facility] Chloride assayOrdered By: David Alex on 03-13-2025 Chloride [Moles/Vol] 92 mmol/L Low 98-108 [facility] Emergency Department Summary on 03-13-2025 Emergency Department Summary Normal [facility] Eosinophil percentageOrdered By: Macario Alex on 03-13-2025 Eosinophils/100 WBC (Bld) 0.5 % 0-5 [facility] Erythrocyte distribution wid th ratioOrdered By: Macariodee Alex on 03-13-2025 Erythrocyte distribution width (RBC) [Ratio] 14.7 % High 11.6-14.6 [facility] Erythrocyte distribution wid th standard deviationOrdered By: [facility] Gosia on 03-13-2025 Erythrocyte distribution width (RBC) [Ratio] 46.1 fl High 35.1-43.9 [facility] Glomerular filtration rate ( GFR) estimation/1.73 sq m using serum, plasma, or whole bOrdered By: Macario Tab on 03-13-2025 GFR/1.73 sq M.predicted among non-blacks MDRD (S/P/Bld) [Vol rate/Area] 79 mL/min/{1.73_m2} >60 [facility] Hematocrit Auto (Bld) [Volum e fraction]Ordered By: Macariodee Alex on 03-13-2025 Hematocrit (Bld) [Volume fraction] 35.9 % Low 37-47 [facility] Hemoglobin measurementOrdere d By: [facility] Hospital[facility]amie[facility]osia on 03-13-2025 Hemoglobin (Bld) [Mass/Vol] 11.2 g/dL Low 12.0-15.0 [facility] Immature granulocytes/100 WB C Auto (Bld)Ordered By: [facility] InstituteTab on 03-13-2025 Immature granulocytes/100 WBC (Bld) 1.200 % High 0.0-0.9 [facility] Ketones Test strip Ql (U)Ord ered By: [facility]ie[facility]os[facility] on 03-13-2025 Ketones Ql (U) Negative Negative [facility] Lactic Acidon 03-13-2025 Lactate [Moles/Vol] mmol/L Normal 0.0-2.0 [facility] Comment on above: Order Comment: Y Performed By: #### L 503.6005, L100.0100 ####[facility] [address] [place], [address] Lipaseon 03-13-2025 Lipase [Catalytic activity/Vol] 378 U/L High 13-75 [facility] Comment on above: Result Comment: Jenny capellan note:LIPASE revised reference range effective 23.New Lipase methodology. Expected to produce lower valuesthan the previous assay method.NEW Reference Range: 13 - 75 U/L Performed By: #### L 501.2450, L500.3400, L500.2500 ####[facility] [address] [place], [address] Liver Profileon 03-13-2025 Albumin [Mass/Vol] 3.8 g/dL Normal 3.4-4.8 [facility] Comment on above: Performed By: #### L 501.2450, L500.3400, L500.2500 ####[facility] [address] [place], [address] ALK PHOS 149 U/L High 35-104 [facility] Comment on above: Performed By: #### L 501.2450, L500.3400, L500.2500 ####[facility] [address] [place], [address] ALT [Catalytic activity/Vol] 38 U/L High <=34 [facility] Comment on above: Performed By: #### L 501.2450, L500.3400, L500.2500 ####[facility] [address] [place], [address] AST [Catalytic activity/Vol] 21 U/L Normal <=31 [facility] Comment on above: Performed By: #### L 501.2450, L500.3400, L500.2500 ####[facility] [address] [place], [address] Bilirubin [Mass/Vol] 0.49 mg/dL Normal 0.00-1.30 [facility] Comment on above: Performed By: #### L 501.2450, L500.3400, L500.2500 ####[facility] [address] [place], [address] Bilirubin.direct [Mass/Vol] 0.29 mg/dL Normal 0.00-0.30 [facility] Comment on above: Performed By: #### L 501.2450, L500.3400, L500.2500 ####[facility] [address] [place], [address] Globulin (S) [Mass/Vol] 3.2 g/dL Normal 2.2-4.2 [facility] Comment on above: Performed By: #### L 501.2450, L500.3400, L500.2500 ####[facility] [address] [place], [address] T PROT 7.0 g/dL Normal 5.9-8.4 [facility] Comment on above: Performed By: #### L 501.2450, L500.3400, L500.2500 ####[facility] [address] [place], [address] MCV (mean corpuscular volume ) determinationOrdered By: Macario Alex on 03-13-2025 MCV (RBC) [Entitic vol] 86.1 fL 81-99 [facility] Mean corpuscular hemoglobin (MCH) determinationOrdered By: Macario Alex on 03-13-2025 MCH (RBC) [Entitic mass] 26.9 pg Low 27.0-32.0 [facility] Monocyte percentageOrdered B y: Macario Alex on 03-13-2025 Monocytes/100 WBC (Bld) 8.1 % 0-10 [facility] Mucus LM Ql (Urine sed)Order ed By: Macario Alex on 03-13-2025 Mucus Ql (Urine sed) 0 SEEN /hpf [facility] Neutrophil percentageOrdered By: Macario Alex on 03-13-2025 Neutrophils/100 WBC (Bld) 83.5 % High 47-70 [facility] Nitrite Test strip Ql (U)Ord ered By: Macario Alex on 03-13-2025 Nitrite Ql (U) Negative Negative [facility] No Panel InformationOrdered By: Macario Alex on 03-13-2025 21 U/L <32 [facility] Platelet countOrdered By: David Alex on 03-13-2025 Platelets (Bld) [#/Vol] 277 10*3/uL 150-450 [facility] Potassium measurement (mass/ volume)Ordered By: Macario Alex on 03-13-2025 Potassium (Unsp spec) [Mass/Vol] 3.6 mmol/L 3.3-5.1 [facility] Protein Test strip Ql (U)Ord ered By: Macario Alex on 03-13-2025 Protein Ql (U) 30 mg/dl High Negative [facility] RBC Auto (Bld) [#/Vol]Ordere d By: Macario Alex on 03-13-2025 RBC (Bld) [#/Vol] 4.17 10*6/uL Low 4.2-5.4 [facility] Serum creatinine measurement (mass/volume)Ordered By: Macario Alex on 03-13-2025 Creatinine [Mass/Vol] 0.84 mg/dL 0.70-1.20 [facility] Serum globulin measurementOr dered By: Macario Alex on 03-13-2025 Globulin (S) [Mass/Vol] 3.2 g/dL 2.2-4.2 [facility] Serum glucose measurement (m ass/volume)Ordered By: Macario Alex on 03-13-2025 Glucose [Mass/Vol] 100 mg/dL High 70-99 [facility] Serum or plasma alanine pimentel otransferase (ALT) measurementOrdered By: Macario Alex on 03-13-2025 ALT [Catalytic activity/Vol] 38 U/L High <35 [facility] Serum or plasma albumin esthela urement (mass/volume)Ordered By: Macario Elise on 03-13-2025 Albumin [Mass/Vol] 3.8 g/dL 3.4-4.8 [facility] Serum or plasma alkaline jose sphatase measurementOrdered By: Macario Alex on 03-13-2025 ALP [Catalytic activity/Vol] 149 U/L High 35-104 [facility] Serum or plasma calcium esthela urement (mass/volume)Ordered By: Macario Elise on 03-13-2025 Calcium [Mass/Vol] 9.5 mg/dL 7.6-11.0 [facility] Serum or plasma ethanol esthela urement (mass/volume)Ordered By: Macario Elise on 03-13-2025 Ethanol [Mass/Vol] mg/dL <10.1 [facility] Serum or plasma urea nitroge n measurement (mass/volume)Ordered By: Macario Alex on 03-13-2025 Urea nitrogen [Mass/Vol] 14 mg/dL 4-19 [facility] Sodium levelOrdered By: Beto Alex on 03-13-2025 Sodium [Moles/Vol] 134 mmol/L 133-145 [facility] Squamous epithelial cells de tection in urine sediment by light microscopyOrdered By: Macario Alex on 03-13-2025 Epithelial cells.squamous LM Ql (Urine sed) 0-5 SEEN /hpf 5-10 [facility] Total proteinOrdered By: Gumaro Alex on 03-13-2025 Protein [Mass/Vol] 7.0 g/dL 5.9-8.4 [facility] Urinalysis, Completeon 03-13 EPI,SQUAMOUS 0-5 SEEN Normal 5-10 [facility] Comment on above: Order Comment: CLEAN CATCH Performed By: #### L 400.0001 ####[facility] [address] [place], [address] RBC 0-5 SEEN Normal 0-5 [facility] Comment on above: Order Comment: CLEAN CATCH Performed By: #### L 400.0001 ####[facility] [address] [place], [address] WBC 5-10 SEEN Normal 0-5 [facility] Comment on above: Order Comment: CLEAN CATCH Performed By: #### L 400.0001 ####[facility] [address] [place], [address] BACTERIA 0 SEEN Normal None Seen [facility] Comment on above: Order Comment: CLEAN CATCH Performed By: #### L 400.0001 ####[facility] [address] [place], [address] Mucus Ql (Urine sed) 0 SEEN Normal [facility] Comment on above: Order Comment: CLEAN CATCH Performed By: #### L 400.0001 ####[facility] [address] [place], [address] Urine clarityOrdered By: Gumaro Alex on 03-13-2025 Clarity (U) Clear Clear [facility] Urine color determinationOrd ered By: Macario Alex on 03-13-2025 Color (U) Straw Yellow [facility] Urine cultureOrdered By: Gumaro Alex on 03-13-2025 Bacteria identified Cx Nom (U) Positive Abnormal [facility] Urine glucose detectionOrder ed By: Macario Alex on 03-13-2025 Glucose Ql (U) Normal mg/dl Normal [facility] Urine leukocyte esterase det ection by dipstickOrdered By: Macario Alex on 03-13-2025 Leukocyte esterase Test strip Ql (U) 100 /ul High Negative [facility] Urine pHOrdered By: Macario Barth on 03-13-2025 pH (U) 7.0 [pH] 5.0 - 8.0 [facility] Urine sediment bacteria coun t by microscopy (number/high power field)Ordered By: Macario Alex on 03-13-2025 Bacteria LM.HPF (Urine sed) [#/Area] 0 /[HPF] None Seen [facility] Urine specific gravity measu rementOrdered By: Macario Abi on 03-13-2025 Specific gravity (U) [Rel density] 1.005 1.002-1.030 [facility] Urine urobilinogen measureme ntOrdered By: Macario Abi on 03-13-2025 Urobilinogen Ql (U) Normal mg/dl Normal [facility] White blood cell (WBC) count Ordered By: Macario Alex on 03-13-2025 WBC (Bld) [#/Vol] 29.2 10*3/uL High 4.4-11.0 [facility] White blood cell countOrdere d By: Macario Alex on 03-13-2025 White blood cell count 5-10 SEEN /hpf 0-5 [facility] ANES POSTPROC EVALon 025 ANES POSTPROC EVAL HNO ID: [id number] Author: JOSE MARIA CHAKRABORTY MD Service: ? Author Type: Anesthesiologist Type: Anesthesia Postprocedure Evaluation Filed: 03/10/2025 15:51 Note Text: POST ANESTHESIA EVALUATION NOTE : 1965 Procedure Summary Date: 03/10/25 Room / Location: Gastroenterology Anesthesia Start: 1359 Anesthesia Stop: Procedure: ERCP Diagnosis: Other chronic pancreatitis (HCC) Scheduled Providers: Jane Farrell MD; Jose Maria Chakraborty MD; Vanessa Perez APRN.PATTERN CHART WRITER Responsible Provider: Jose Maria Chakraborty MD Anesthesia [...] March 10, 2025 TIME: 3:16 PM CSN: [id number] Normal [facility] ANES PRE-OPon 03-10-2025 ANES PRE-OP HNO ID: [id number] Author: JOSE MARIA CHAKRABORTY MD Service: ? Author Type: Anesthesiologist Type: Anesthesia Preprocedure Evaluation Filed: 03/10/2025 12:26 Note Text: ANESTHESIOLOGY DAY OF SURGERY NOTE : 1965 Procedure Information Date/Time: 03/10/25 1300 Scheduled providers: Jane Farrell MD; Jose Maria Chakraborty MD; Vanessa Perez APRN.PATTERN CHART WRITER Procedure: ERCP Location: Gastroenterology Estimated body mass [...] 48 areli (more content not included)... Normal [facility] ERCP Study observation Perla rivera 03-10-[address] [facility] Radiology Study observation (narrative) [facility] NURSING PROGon 03-10-2025 NURSING PROG HNO ID: [id number] Author: JANIS AC, RN Service: Gastroenterology Author Type: Registered Nurse Type: Nursing Progress Note Filed: 03/10/2025 17:07 Note Text: Dr Chakraborty anesthesia ok d patient to be discharged Three hot packs given to patient for right arm Normal [facility] NURSING PROG HNO ID: [id number] Author: JANIS AC RN Service: Gastroenterology Author Type: Registered Nurse Type: Nursing Progress Note Filed: 03/10/2025 16:51 Note Text: Patient states her arm where the infiltration occurred it is burning Patient informed to keep an eye on the infiltrated area so a blister does not form of it does go to the Emergency room Normal [facility] NURSING PROG HNO ID: [id number] Author: JANIS AC RN Service: Gastroenterology Author Type: Registered Nurse Type: Nursing Progress Note Filed: 03/10/2025 16:24 Note Text: Right AC IV infiltrated with 100cc IV Propofol large swollen red hard area Hot pack applied Patient crying stating arm hurts patient Gracie and sister Magui spoke to [employer] nurse gym manager [facility]. Pharmacy called, Zelda pharmacist notified unable to help. Called Drug information line spoke with Milan fallon monitor patient There is no information in regards to amount of time Propofol will take to infuse .Patient is awake alert oriented x3 Normal [facility] NURSING PROG HNO ID: [id number] Author: JANIS AC RN Service: Gastroenterology Author Type: Registered Nurse Type: Nursing Progress Note Filed: 03/10/2025 15:51 Note Text: Dr Chakraborty anesthesia notified patients blood pressure low 73/52 74/51 Albumin 25 grams given Patient awake alert oriented x3 skin warm and dry Normal [facility] NURSING PROG HNO ID: [id number] Author: JANIS AC RN Service: Gastroenterology Author [...] Electronically Signed By: Janis Ac RN Normal [facility] NURSING PROG HNO ID: [id number] Author: ADRIAN EDMOND RN Service: ? Author [...] Adrian Edmond RN In Department: GASTROENTEROLOGY Normal [facility] Matteo 03-07-2025 CNPN Telephone (GASTMN) -------- GRACIE BANUELOS ([id number]) 1965 F Date Time Provider Department 03/07/25 JUAN SENIOR GASTIN During your visit today, we recorded the following information about you: Isis Gil 03/07/2025 11:48 AM Signed She stated there was supposed to be a letter or some document to be faxed over to [facility] to help pay for her gas prior to her ERCP on 03/10/25 Email: [email or web address] Are we able to get that sent over for patient? Thank you Juan Mike LPN 03/07/2025 12:29 PM Signed Jane Farrell MD Department of Gastroenterology- Advanced Endoscopy [address] [place], [place] [id number] 03/07/2025 Pt. name: Gracie Banuelos 1965 MEDICAL Procedure This is to certify that Gracie Banuelos this is a letter to confirm that Gracie has a procedure at [facility] on 03/10 with an arrival time of 12pm. This appointment needs to have a responsible adult class a regional truck driver to accompany her for transportation [...] Date Reviewed: 01/13/2025 Reviewed by: Soila Easton APRN.PROPERTY DISPOSAL OFFICER - Fully Assessed Reason for Visit: Orders [...] stress female [N39.3] 11/24/2014 HPV test positive [[id number]] 11/24/2014 Alcohol dependence in remission (HCC) [F10.21] 07/10/2015 11/02/2018 Pulm (more content not included)... Normal [facility] 03-06-2025 [facility] Telephone (GAPRA3) -------- GRACIE BANUELOS ([id number]) 1965 F Date Time Provider Department 03/06/25 [...] Date Reviewed: 01/13/2025 Reviewed by: Soila Easton APRN.PROPERTY DISPOSAL OFFICER - Fully Assessed Reason for Visit: Patient [...] stress female [N39.3] 11/24/2014 HPV test positive [[id number]] 11/24/2014 Alcohol dependence in remission (HCC) [F10.21] [...] Encounter Status:Closed by RAISA JIMENEZ on 03/06/25 [facility] GRACIE BANUELOS ([id number]) 1965 F Date Time Provider Department 03/06/25 [...] Date Reviewed: 01/13/2025 Reviewed by: Soila Easton APRN.PROPERTY DISPOSAL OFFICER - Fully Assessed Prescriptions as of 03/06/2025 [...] stress female [N39.3] 11/24/2014 HPV test positive [[id number]] 11/24/2014 Alcohol dependence in remission (HCC) [F10.21] [...] Encounter Status:Closed by CAITLIN OBRIEN on 03/06/25 [facility] -------- GRACIE BANUELOS ([id number]) 1965 F Date Time Provider Department 03/06/25 [facility] During your visit today, we recorded the following information about you: JefferyIsis 03/06/2025 9:10 AM Signed Gracie calling #[phone] Patient is calling regarding wanting to speak [...] Date Reviewed: 01/13/2025 Reviewed by: Older, Soila, SENIOR ERP CONSULTANT.PROPERTY DISPOSAL OFFICER - Fully Assessed Reason for Visit: Patient Question [9879] Cmt: Questions Prior to ERCP Prescriptions as [...] stress female [N39.3] 11/24/2014 HPV test positive [[id number]] 11/24/2014 Alcohol dependence in remission (HCC) [F10.21] [...] of co (more content not included)... Normal [facility] NURSING PROGon 03-03-2025 NURSING PROG HNO ID: [id number] Author: JAELYN KOTHARI RN Service: ? Author Type: Registered Nurse Type: Nursing Progress Note Filed: 03/03/2025 09:48 Note Text: Attempted to reach the patient at the contact number that they provided [phone] (home) . Unable to speak with patient so without identifying the patient the following information was left on their voice mail: Date of procedure, location and report time A message was left informing the patient/patient personal banking representative they must have a responsible adult [...] Number to call with questions or concerns [phone] Number to call to cancel their procedure [phone] Jaelyn Kothari RN Normal [facility] Abdomen/Pelvis W IV Cont ONL Yon 02-26-2025 Abdomen/Pelvis W IV Cont ONLY Normal [facility] Absolute lymphocyte countOrd ered By: Katina Price on 02-26-2025 Lymphocytes Auto (Unsp spec) [#/Vol] 2.50 10*3/uL 0.83-4.51 [facility] Anion gap in Serum or Plasma Ordered By: Katina Price on 02-26-2025 Anion gap [Moles/Vol] 11 mmol/L 5-15 [facility] Automated lymphocyte count a s percentage of total leukocytesOrdered By: Katina Price on 02-26-2025 Lymphocytes/100 WBC Auto (Unsp spec) 20.2 % 19-41 [facility] BUN/creatinine ratioOrdered By: Katina Price on 02-26-2025 Urea nitrogen/Creatinine [Mass ratio] 7.6 mg/mg Low 10-20 [facility] Basophil percentageOrdered B y: Katina Price on 02-26-2025 Basophils/100 WBC (Bld) 1.0 % 0-1 [facility] Bilirubin, totalOrdered By: Katina Price on 02-26-2025 Bilirubin [Mass/Vol] mg/dL 0.00-1.30 [facility] CBC W/Diff, Automatedon Absolute Lymph 2.50 X10 3/uL Normal 0.83-4.51 [facility] Comment on above: Performed By: #### L 501.2450, L100.0100, L500.4050 ####[facility] [address] [place], [address] Absolute Neut 7.9 X10 3/uL High 2.0-7.7 [facility] Comment on above: Performed By: #### L 501.2450, L100.0100, L500.4050 ####[facility] [address] [place], [address] Basophils/100 WBC (Bld) 1.0 % Normal 0-1 [facility] Comment on above: Performed By: #### L 501.2450, L100.0100, L500.4050 ####[facility] [address] [place], [address] Eosinophils/100 WBC (Bld) 6.1 % High 0-5 [facility] Comment on above: Performed By: #### L 501.2450, L100.0100, L500.4050 ####[facility] [address] [place], [address] Erythrocyte distribution width (RBC) [Ratio] 14.6 % Normal 11.6-14.6 [facility] Comment on above: Performed By: #### L 501.2450, L100.0100, L500.4050 ####[facility] [address] [place], [address] Hematocrit (Bld) [Volume fraction] 39.8 % Normal 37-47 [facility] Comment on above: Performed By: #### L 501.2450, L100.0100, L500.4050 ####[facility] [address] [place], [address] Hemoglobin (Bld) [Mass/Vol] 12.1 g/dL Normal 12.0-15.0 [facility] Comment on above: Performed By: #### L 501.2450, L100.0100, L500.4050 ####[facility] [address] [place], [address] IG% 0.900 Normal 0.0-0.9 [facility] Comment on above: Result Comment: IG% - Immature Granulocytes (promyelocytes, myelocytes andmetamyelocytes) > 1% indicates that a LEFT SHIFT is Present. Performed By: #### L 501.2450, L100.0100, L500.4050 ####[facility] [address] [place], [address] Lymphocytes/100 WBC (Bld) 20.2 % Normal 19-41 [facility] Comment on above: Performed By: #### L 501.2450, L100.0100, L500.4050 ####[facility] [address] [place], [address] MCH (RBC) [Entitic mass] 26.8 pg Low 27.0-32.0 [facility] Comment on above: Performed By: #### L 501.2450, L100.0100, L500.4050 ####[facility] [address] [place], [address] MCHC (RBC) [Mass/Vol] 30.4 g/dL Low 32-36 [facility] Comment on above: Performed By: #### L 501.2450, L100.0100, L500.4050 ####[facility] [address] [place], [address] MCV (RBC) [Entitic vol] 88.2 fL Normal 81-99 [facility] Comment on above: Performed By: #### L 501.2450, L100.0100, L500.4050 ####[facility] [address] [place], [address] Monocytes/100 WBC (Bld) 8.2 % Normal 0-10 [facility] Comment on above: Performed By: #### L 501.2450, L100.0100, L500.4050 ####[facility] [address] [place], [address] Neutrophils/100 WBC (Bld) 63.6 % Normal 47-70 [facility] Comment on above: Performed By: #### L 501.2450, L100.0100, L500.4050 ####[facility] [address] [place], [address] Nucleated RBC (Bld) [#/Vol] 0 10*3/uL Normal 0-5 [facility] Comment on above: Performed By: #### L 501.2450, L100.0100, L500.4050 ####[facility] [address] [place], [address] Platelet mean volume (Bld) [Entitic vol] 10.6 fL Normal 6.2-12.0 [facility] Comment on above: Performed By: #### L 501.2450, L100.0100, L500.4050 ####[facility] [address] [place], [address] Platelets (Bld) [#/Vol] 293 10*3/uL Normal 150-450 [facility] Comment on above: Performed By: #### L 501.2450, L100.0100, L500.4050 ####[facility] [address] [place], [address] RBC (Bld) [#/Vol] 4.51 10*6/uL Normal 4.2-5.4 [facility] Comment on above: Performed By: #### L 501.2450, L100.0100, L500.4050 ####[facility] [address] [place], [address] RDW SD 46.9 fl High 35.1-43.9 [facility] Comment on above: Performed By: #### L 501.2450, L100.0100, L500.4050 ####[facility] [address] [place], [address] WBC (Bld) [#/Vol] 12.4 10*3/uL High 4.4-11.0 [facility] Comment on above: Performed By: #### L 501.2450, L100.0100, L500.4050 ####[facility] [address] [place], [address] Carbon dioxide, total [Moles /volume] in Central venous bloodOrdered By: Katina Price on 02-26-2025 CO2 [Moles/Vol] 30.6 mmol/L 21.0-32.0 [facility] Chloride assayOrdered By: Afia Price on 02-26-2025 Chloride [Moles/Vol] 99 mmol/L 98-108 [facility] Comprehensive Metabolic Prof ilon 02-26-2025 Albumin [Mass/Vol] 4.1 g/dL Normal 3.4-4.8 [facility] Comment on above: Performed By: #### L 501.2450, L100.0100, L500.4050 ####[facility] [address] [place], [address] Albumin/Globulin [Mass ratio] 1.3 {ratio} Normal 0.9-2.4 [facility] Comment on above: Performed By: #### L 501.2450, L100.0100, L500.4050 ####[facility] [address] [place], [address] ALK PHOS 113 U/L High 35-104 [facility] Comment on above: Performed By: #### L 501.2450, L100.0100, L500.4050 ####[facility] [address] [place], [address] ALT [Catalytic activity/Vol] 10 U/L Normal <=34 [facility] Comment on above: Performed By: #### L 501.2450, L100.0100, L500.4050 ####[facility] [address] [place], [address] AST [Catalytic activity/Vol] 17 U/L Normal <=31 [facility] Comment on above: Performed By: #### L 501.2450, L100.0100, L500.4050 ####[facility] [address] [place], [address] BUN/CRE 7.6 RATIO Low 10-20 [facility] Comment on above: Performed By: #### L 501.2450, L100.0100, L500.4050 ####[facility] [address] [place], [address] Calcium [Mass/Vol] 9.5 mg/dL Normal 7.6-11.0 [facility] Comment on above: Performed By: #### L 501.2450, L100.0100, L500.4050 ####[facility] [address] [place], [address] Chloride [Moles/Vol] 99 mmol/L Normal 98-108 [facility] Comment on above: Performed By: #### L 501.2450, L100.0100, L500.4050 ####[facility] [address] [place], [address] CO2 [Moles/Vol] 30.6 mmol/L Normal 21.0-32.0 [facility] Comment on above: Performed By: #### L 501.2450, L100.0100, L500.4050 ####[facility] [address] [place], [address] Creatinine [Mass/Vol] 0.82 mg/dL Normal 0.70-1.20 [facility] Comment on above: Performed By: #### L 501.2450, L100.0100, L500.4050 ####[facility] [address] [place], [address] ECRCL 59.60 ml/min Normal 50-250 [facility] Comment on above: Performed By: #### L 501.2450, L100.0100, L500.4050 ####[facility] [address] [place], [address] GAP 11 Normal 5-15 [facility] Comment on above: Performed By: #### L 501.2450, L100.0100, L500.4050 ####[facility] [address] [place], [address] GFR/1.73 sq M.predicted among non-blacks MDRD (S/P/Bld) [Vol rate/Area] 81 mL/min/{1.73_m2} Normal >60 [facility] Comment on above: Result Comment: mL/m in/1.73m2 CKD-EPI Creatinine Equation (2020) Performed By: #### L 501.2450, L100.0100, L500.4050 ####[facility] [address] [place], [address] Globulin (S) [Mass/Vol] 3.1 g/dL Normal 2.2-4.2 [facility] Comment on above: Performed By: #### L 501.2450, L100.0100, L500.4050 ####[facility] [address] [place], [address] Glucose [Mass/Vol] 83 mg/dL Normal 70-99 [facility] Comment on above: Performed By: #### L 501.2450, L100.0100, L500.4050 ####[facility] [address] [place], [address] Potassium [Moles/Vol] 4.1 mmol/L Normal 3.3-5.1 [facility] Comment on above: Performed By: #### L 501.2450, L100.0100, L500.4050 ####[facility] [address] [place], [address] Sodium [Moles/Vol] 140 mmol/L Normal 133-145 [facility] Comment on above: Performed By: #### L 501.2450, L100.0100, L500.4050 ####[facility] [address] [place], [address] T BILI < 0.15 Normal 0.00-1.30 [facility] Comment on above: Performed By: #### L 501.2450, L100.0100, L500.4050 ####[facility] [address] [place], [address] T PROT 7.2 g/dL Normal 5.9-8.4 [facility] Comment on above: Performed By: #### L 501.2450, L100.0100, L500.4050 ####[facility] [address] [place], [address] Urea nitrogen [Mass/Vol] 6 mg/dL Normal 4-19 [facility] Comment on above: Performed By: #### L 501.2450, L100.0100, L500.4050 ####[facility] [address] [place], [address] Emergency Department Summary on 02-26-2025 Emergency Department Summary Normal [facility] Eosinophil percentageOrdered By: Katina Price on 02-26-2025 Eosinophils/100 WBC (Bld) 6.1 % High 0-5 [facility] Erythrocyte distribution wid th ratioOrdered By: Katina Price on 02-26-2025 Erythrocyte distribution width (RBC) [Ratio] 14.6 % 11.6-14.6 [facility] Erythrocyte distribution wid th standard deviationOrdered By: Katina Price on 02-26-2025 Erythrocyte distribution width (RBC) [Ratio] 46.9 fl High 35.1-43.9 [facility] Glomerular filtration rate ( GFR) estimation/1.73 sq m using serum, plasma, or whole bOrdered By: Katina Price on 02-26-2025 GFR/1.73 sq M.predicted among non-blacks MDRD (S/P/Bld) [Vol rate/Area] 81 mL/min/{1.73_m2} >60 [facility] Hematocrit Auto (Bld) [Volum e fraction]Ordered By: Katina Price on 02-26-2025 Hematocrit (Bld) [Volume fraction] 39.8 % 37-47 [facility] Hemoglobin measurementOrdere d By: Katina Price on 02-26-2025 Hemoglobin (Bld) [Mass/Vol] 12.1 g/dL 12.0-15.0 [facility] Immature granulocytes/100 WB C Auto (Bld)Ordered By: Katina Price on 02-26-2025 Immature granulocytes/100 WBC (Bld) 0.900 % 0.0-0.9 [facility] Lipaseon 02-26-2025 Lipase [Catalytic activity/Vol] 45 U/L Normal 13-75 [facility] Comment on above: Result Comment: Jenny capellan note:LIPASE revised reference range effective 23.New Lipase methodology. Expected to produce lower valuesthan the previous assay method.NEW Reference Range: 13 - 75 U/L Performed By: #### L 501.2450, L100.0100, L500.4050 ####[facility] [address] [place], [address] MCV (mean corpuscular volume ) determinationOrdered By: Katina Price on 02-26-2025 MCV (RBC) [Entitic vol] 88.2 fL 81-99 [facility] Mean corpuscular hemoglobin (MCH) determinationOrdered By: Katina Price on 02-26-2025 MCH (RBC) [Entitic mass] 26.8 pg Low 27.0-32.0 [facility] Monocyte percentageOrdered B y: Katina Price on 02-26-2025 Monocytes/100 WBC (Bld) 8.2 % 0-10 [facility] Neutrophil percentageOrdered By: Katina Price on 02-26-2025 Neutrophils/100 WBC (Bld) 63.6 % 47-70 [facility] No Panel InformationOrdered By: Katina Price on 02-26-2025 17 U/L <32 [facility] Platelet countOrdered By: Afia Price on 02-26-2025 Platelets (Bld) [#/Vol] 293 10*3/uL 150-450 [facility] Potassium measurement (mass/ volume)Ordered By: Katina Price on 02-26-2025 Potassium (Unsp spec) [Mass/Vol] 4.1 mmol/L 3.3-5.1 [facility] RBC Auto (Bld) [#/Vol]Ordere d By: Katina Price on 02-26-2025 RBC (Bld) [#/Vol] 4.51 10*6/uL 4.2-5.4 [facility] Serum creatinine measurement (mass/volume)Ordered By: Katina Price on 02-26-2025 Creatinine [Mass/Vol] 0.82 mg/dL 0.70-1.20 [facility] Serum globulin measurementOr dered By: Katina Price on 02-26-2025 Globulin (S) [Mass/Vol] 3.1 g/dL 2.2-4.2 [facility] Serum glucose measurement (m ass/volume)Ordered By: Katina Price on 02-26-2025 Glucose [Mass/Vol] 83 mg/dL 70-99 [facility] Serum or plasma alanine pimentel otransferase (ALT) measurementOrdered By: Katina Price on 02-26-2025 ALT [Catalytic activity/Vol] 10 U/L <35 [facility] Serum or plasma albumin esthela urement (mass/volume)Ordered By: Katina Price on 02-26-2025 Albumin [Mass/Vol] 4.1 g/dL 3.4-4.8 [facility] Serum or plasma albumin/glob ulin mass ratioOrdered By: Katina Price on 02-26-2025 Albumin/Globulin [Mass ratio] 1.3 {ratio} 0.9-2.4 [facility] Serum or plasma alkaline jose sphatase measurementOrdered By: Katina Price on 02-26-2025 ALP [Catalytic activity/Vol] 113 U/L High 35-104 [facility] Serum or plasma calcium esthela urement (mass/volume)Ordered By: Katina Price on 02-26-2025 Calcium [Mass/Vol] 9.5 mg/dL 7.6-11.0 [facility] Serum or plasma urea nitroge n measurement (mass/volume)Ordered By: Katina Price on 02-26-2025 Urea nitrogen [Mass/Vol] 6 mg/dL 4-19 [facility] Sodium levelOrdered By: Katina Price on 02-26-2025 Sodium [Moles/Vol] 140 mmol/L 133-145 [facility] Total proteinOrdered By: Valeria Price on 02-26-2025 Protein [Mass/Vol] 7.2 g/dL 5.9-8.4 [facility] White blood cell (WBC) count Ordered By: Katnia Price on 02-26-2025 WBC (Bld) [#/Vol] 12.4 10*3/uL High 4.4-11.0 [facility] Pulmonary Visit Reporton Pulmonary Visit Report Normal [facility] 12 Lead EKGon 01-27-2025 12 Lead EKG Normal [facility] Absolute lymphocyte countOrd ered By: Franco Inman on 01-27-2025 Lymphocytes Auto (Unsp spec) [#/Vol] 2.62 10*3/uL 0.83-4.51 [facility] Anion gap in Serum or Plasma Ordered By: Franco Inman on 01-27-2025 Anion gap [Moles/Vol] 11 mmol/L 5-15 [facility] Automated blood erythrocyte countOrdered By: Franco Inman on 01-27-2025 RBC (Bld) [#/Vol] 4.32 10*6/uL Normal 4.2-5.4 [facility] Comment on above: Performed By: #### L 100.0100 ####[facility] [address] [place], [place], [address] Automated blood hematocrit ( percentage)Ordered By: Franco Inman on 01-27-2025 Hematocrit (Bld) [Volume fraction] 37.5 % Normal 37-47 [facility] Comment on above: Performed By: #### L 100.0100 ####[facility] [address] [place], [place], [address] Automated lymphocyte count a s percentage of total leukocytesOrdered By: Franco Inman on 01-27-2025 Lymphocytes/100 WBC Auto (Unsp spec) 16.8 % Low 19-41 [facility] BUN/creatinine ratioOrdered By: Franco Inman on 01-27-2025 Urea nitrogen/Creatinine [Mass ratio] 7.1 mg/mg Low 10-20 [facility] Basophil percentageOrdered B y: Franco Inman on 01-27-2025 Basophils/100 WBC (Bld) 1.0 % Normal 0-1 [facility] Comment on above: Performed By: #### L 100.0100 ####[facility] [address] [place], [place], [address] Bilirubin, totalOrdered By: Franco Inman on 01-27-2025 Bilirubin [Mass/Vol] mg/dL 0.00-1.30 [facility] CBC W/Diff, Automatedon Absolute Lymph 2.62 X10 3/uL Normal 0.83-4.51 [facility] Comment on above: Performed By: #### L 100.0100 ####[facility] [address] [place], [address] Absolute Neut 11.0 X10 3/uL High 2.0-7.7 [facility] Comment on above: Performed By: #### L 100.0100 ####[facility] [address] [place], [address] IG% 0.800 Normal 0.0-0.9 [facility] Comment on above: Result Comment: IG% - Immature Granulocytes (promyelocytes, myelocytes andmetamyelocytes) > 1% indicates that a LEFT SHIFT is Present. Performed By: #### L 100.0100 ####[facility] [address] [place], [address] Lymphocytes/100 WBC (Bld) 16.8 % Low 19-41 [facility] Comment on above: Performed By: #### L 100.0100 ####[facility] [address] [place], [address] MCHC (RBC) [Mass/Vol] 30.7 g/dL Low 32-36 [facility] Comment on above: Performed By: #### L 100.0100 ####[facility] [address] [place], [address] Nucleated RBC (Bld) [#/Vol] 0 10*3/uL Normal 0-5 [facility] Comment on above: Performed By: #### L 100.0100 ####[facility] [address] [place], [address] Platelet mean volume (Bld) [Entitic vol] 9.8 fL Normal 6.2-12.0 [facility] Comment on above: Performed By: #### L 100.0100 ####[facility] [address] [place], [address] RDW SD 46.0 fl High 35.1-43.9 [facility] Comment on above: Performed By: #### L 100.0100 ####[facility] [address] [place], [address] Carbon dioxide, total [Moles /volume] in Central venous bloodOrdered By: Franco Inman on 01-27-2025 CO2 [Moles/Vol] 27.5 mmol/L Normal 21.0-32.0 [facility] Comment on above: Performed By: #### L 500.4050, L501.2450 ####[facility] [address] [place], [address] Chest PA and Lateralon 01-27 Chest PA and Lateral Normal [facility] Chloride assayOrdered By: Leo Inman on 01-27-2025 Chloride [Moles/Vol] 98 mmol/L Normal 98-108 [facility] Comment on above: Performed By: #### L 500.4050, L501.2450 ####[facility] [address] [place], [address] Comprehensive Metabolic Prof ilon 01-27-2025 ALK PHOS 108 U/L High 35-104 [facility] Comment on above: Performed By: #### L 500.4050, L501.2450 ####[facility] [address] [place], [address] AST [Catalytic activity/Vol] 19 U/L Normal <=31 [facility] Comment on above: Performed By: #### L 500.4050, L501.2450 ####[facility] [address] [place], [address] BUN/CRE 7.1 RATIO Low 10-20 [facility] Comment on above: Performed By: #### L 500.4050, L501.2450 ####[facility] [address] [place], [address] ECRCL 65.16 ml/min Normal 50-250 [facility] Comment on above: Performed By: #### L 500.4050, L501.2450 ####[facility] [address] [place], [address] GAP 11 Normal 5-15 [facility] Comment on above: Performed By: #### L 500.4050, L501.2450 ####[facility] [address] [place], [address] Potassium [Moles/Vol] 4.3 mmol/L Normal 3.3-5.1 [facility] Comment on above: Performed By: #### L 500.4050, L501.2450 ####[facility] [address] [place], [address] T BILI < 0.15 Normal 0.00-1.30 [facility] Comment on above: Performed By: #### L 500.4050, L501.2450 ####[facility] [address] [place], [address] T PROT 7.1 g/dL Normal 5.9-8.4 [facility] Comment on above: Performed By: #### L 500.4050, L501.2450 ####[facility] [address] [place] [place], [address] Emergency Department Summary on 01-27-2025 Emergency Department Summary Normal [facility] Eosinophil percentageOrdered By: Franco Inman on 01-27-2025 Eosinophils/100 WBC (Bld) 5.3 % High 0-5 [facility] Comment on above: Performed By: #### L 100.0100 ####[facility] [address] [place], [address] Erythrocyte distribution wid th ratioOrdered By: Franco Inman on 01-27-2025 Erythrocyte distribution width (RBC) [Ratio] 14.5 % Normal 11.6-14.6 [facility] Comment on above: Performed By: #### L 100.0100 ####[facility] [address] [place], [address] Erythrocyte distribution wid th standard deviationOrdered By: Franco Inman on 01-27-2025 Erythrocyte distribution width (RBC) [Ratio] 46.0 fl High 35.1-43.9 [facility] Glomerular filtration rate ( GFR) estimation/1.73 sq m using serum, plasma, or whole bOrdered By: Franco Inman on 01-27-2025 GFR/1.73 sq M.predicted among non-blacks MDRD (S/P/Bld) [Vol rate/Area] 90 mL/min/{1.73_m2} Normal >60 [facility] Comment on above: Result Comment: mL/m in/1.73m2 CKD-EPI Creatinine Equation (2020) Performed By: #### L 500.4050, L501.2450 ####[facility] [address] [place], [address] Hemoglobin measurementOrdere d By: Franco Inman on 01-27-2025 Hemoglobin (Bld) [Mass/Vol] 11.5 g/dL Low 12.0-15.0 [facility] Comment on above: Performed By: #### L 100.0100 ####[facility] [address] [place], [address] Immature granulocytes/100 WB C Auto (Bld)Ordered By: Franco Inman on 01-27-2025 Immature granulocytes/100 WBC (Bld) 0.800 % 0.0-0.9 [facility] Lipaseon 01-27-2025 Lipase [Catalytic activity/Vol] 32 U/L Normal 13-75 [facility] Comment on above: Result Comment: Plea se note:LIPASE revised reference range effective 23.New Lipase methodology. Expected to produce lower valuesthan the previous assay method.NEW Reference Range: 13 - 75 U/L Performed By: #### L 500.4050, L501.2450 ####[facility] [address] [place], [address] MCV (mean corpuscular volume ) determinationOrdered By: Franco Inman on 01-27-2025 MCV (RBC) [Entitic vol] 86.8 fL Normal 81-99 [facility] Comment on above: Performed By: #### L 100.0100 ####[facility] [address] [place], [place], [id number] Mean corpuscular hemoglobin (MCH) determinationOrdered By: Franco Inman on 01-27-2025 MCH (RBC) [Entitic mass] 26.6 pg Low 27.0-32.0 [facility] Comment on above: Performed By: #### L 100.0100 ####[facility] [address] [place], [address] Monocyte percentageOrdered B y: Franco Inman on 01-27-2025 Monocytes/100 WBC (Bld) 5.9 % Normal 0-10 [facility] Comment on above: Performed By: #### L 100.0100 ####[facility] [address] [place], [address] Neutrophil percentageOrdered By: Franco Inman on 01-27-2025 Neutrophils/100 WBC (Bld) 70.2 % High 47-70 [facility] Comment on above: Performed By: #### L 100.0100 ####[facility] [address] [place], [address] No Panel InformationOrdered By: Franco Inman on 01-27-2025 19 U/L <32 [facility] Platelet countOrdered By: Leo Inman on 01-27-2025 Platelets (Bld) [#/Vol] 377 10*3/uL Normal 150-450 [facility] Comment on above: Performed By: #### L 100.0100 ####[facility] [address] [place], [address] Potassium measurement (mass/ volume)Ordered By: Franco Inman on 01-27-2025 Potassium (Unsp spec) [Mass/Vol] 4.3 mmol/L 3.3-5.1 [facility] Serum creatinine measurement (mass/volume)Ordered By: Franco Inman on 01-27-2025 Creatinine [Mass/Vol] 0.75 mg/dL Normal 0.70-1.20 [facility] Comment on above: Performed By: #### L 500.4050, L501.2450 ####[facility] [address] [place], [address] Serum globulin measurementOr dered By: Franco Inman on 01-27-2025 Globulin (S) [Mass/Vol] 3.1 g/dL Normal 2.2-4.2 [facility] Comment on above: Performed By: #### L 500.4050, L501.2450 ####[facility] [address] [place], [address] Serum glucose measurement (m ass/volume)Ordered By: Franco Inman on 01-27-2025 Glucose [Mass/Vol] 130 mg/dL High 70-99 [facility] Comment on above: Performed By: #### L 500.4050, L501.2450 ####[facility] [address] [place], [address] Serum or plasma alanine pimentel otransferase (ALT) measurementOrdered By: Franco Inman on 01-27-2025 ALT [Catalytic activity/Vol] 13 U/L Normal <=34 [facility] Comment on above: Performed By: #### L 500.4050, L501.2450 ####[facility] [address] [place], [address] Serum or plasma albumin esthela urement (mass/volume)Ordered By: Franco Inman on 01-27-2025 Albumin [Mass/Vol] 4.0 g/dL Normal 3.4-4.8 [facility] Comment on above: Performed By: #### L 500.4050, L501.2450 ####[facility] [address] [place], [address] Serum or plasma albumin/glob ulin mass ratioOrdered By: Franco Inman on 01-27-2025 Albumin/Globulin [Mass ratio] 1.3 {ratio} Normal 0.9-2.4 [facility] Comment on above: Performed By: #### L 500.4050, L501.2450 ####[facility] [address] [place], [address] Serum or plasma alkaline jose sphatase measurementOrdered By: Franco Inman on 01-27-2025 ALP [Catalytic activity/Vol] 108 U/L High 35-104 [facility] Serum or plasma calcium esthela urement (mass/volume)Ordered By: Franco Inman on 01-27-2025 Calcium [Mass/Vol] 9.2 mg/dL Normal 7.6-11.0 [facility] Comment on above: Performed By: #### L 500.4050, L501.2450 ####[facility] [address] [place], [address] Serum or plasma urea nitroge n measurement (mass/volume)Ordered By: Franco Inman on 01-27-2025 Urea nitrogen [Mass/Vol] 5 mg/dL Normal 4-19 [facility] Comment on above: Performed By: #### L 500.4050, L501.2450 ####[facility] [address] [place], [address] Sodium levelOrdered By: Franco Inman on 01-27-2025 Sodium [Moles/Vol] 137 mmol/L Normal 133-145 [facility] Comment on above: Performed By: #### L 500.4050, L501.2450 ####[facility] [address] [place], [address] Total proteinOrdered By: Ezra Inman on 01-27-2025 Protein [Mass/Vol] 7.1 g/dL 5.9-8.4 [facility] White blood cell (WBC) count Ordered By: Franco Inman on 01-27-2025 WBC (Bld) [#/Vol] 15.6 10*3/uL High 4.4-11.0 [facility] Comment on above: Performed By: #### L 100.0100 ####[facility] [address] [place], [address] CNOVon 01-13-2025 CNOV Office Visit (INTMWS ) -------- GRACIE BANUELOS ([id number]) 1965 F Date Time Provider Department 01/13/25 10:40 AM SOILA EASTON INTMRAQUEL During your visit today, we recorded the following information about you: Pulse Respiration Blood pressure Weight 88/minute 16/minute 108/60 62.6 kg Soila Easton APRN.PROPERTY DISPOSAL OFFICER 01/13/2025 11:33 AM Signed CC: Patient presents with: Recheck: Follow up HPI Gracieterrance Banuelos is a 59 year old female who presents today for gout concerns. Recording using Physit[employer] software for draft documentation of the visit was discussed with the patient/authorized personal banking representative; all questions welcomed and answered. Patient/authorized personal banking representative agreed to proceed Gout: - Under [...] of months ago asa ordered by her banking attorney. - Denies redness or red streaking; COPD [...] will be in the 90s. 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 - Concerns about potential need for ventilator post-surgery. - Under care of DrMax Meza at [facility]. - No recent infections, fever, or [...] 3 severe COPD by GOLD classification ([facility]) 2018 Tobacco use greater than 30 years [...] for nausea/ (more content not included)... Normal [facility] CBC W/Diff, Automatedon 12-27 PATH REV Reviewed Normal [facility] Comment on above: Result Comment: SEE REPORT IN PATIENT'S EMR AMENDED REPORT 01/11/25 1354 PATH REV previously reported as: May foll Performed By: #### L 100.0100, L500.2500 ####[facility] [address] [place], [place], [address] PATH REV Reviewed Normal [facility] Comment on above: Result Comment: SEE REPORT IN PATIENT'S EMR AMENDED REPORT 01/11/25 1352 PATH REV previously reported as: May foll Performed By: #### L 100.0100, L500.2500 ####[facility] [address] [place], [address] Performed By: #### L 100.0100 ####[facility] [address] [place], [address] PATH REV Reviewed Normal [facility] Comment on above: Result Comment: SEE REPORT IN PATIENT'S EMR AMENDED REPORT 01/11/25 1342 PATH REV previously reported as: May foll Performed By: #### L 503.7505, L500.2500, L100.0100, L509.7001 ####[facility] [address] [place], [address] Matteo 01-09-2025 [facility] Telephone (INTMWS) -------- BANUELOSGRACIE ([id number]) 1965 F Date Time Provider Department 01/09/25 MISBAH ELKINS INTMWS During your visit today, we recorded the following information about you: Marge ePrkins RN 01/09/2025 7:18 PM Signed Pt called in and reports she can get pull ups paid for through [email or web address]. She states the provider jst has to [...] outside her home. Sent rx to [facility]. FYI: Pt scheduled appt tomorrow with Soila Easton to discuss multiple concerns. CHERELLE Jones Amanda, RN 01/12/2025 1:15 PM Signed Pt has appointment with Soila Easton Sex Worker Or Escort on 01/14/24. Allergies As of Date: 01/09/2025 [...] stress female [N39.3] 11/24/2014 HPV test positive [[id number]] 11/24/2014 Alcohol depe (more content not included)... Normal [facility] CBC W/Diff, Automatedon - PATH REV N/A Normal [facility] Comment on above: Result Comment: AMENDED REPORT 01/04/252142 PATH REV previously reported as: January Performed By: #### L 501.5450, L500.4050, L100.0100 ####[facility] [address] [place], [address] 12 Lead EKGon 01-01-2025 12 Lead EKG Normal [facility] ALP [Catalytic activity/Vol] Ordered By: Leandro Sanchez on 01-01-2025 Serum or plasma alkaline phosphatase measurement 111 U/L High 35-104 [facility] ALT [Catalytic activity/Vol] Ordered By: Leandro Sanchez on 01-01-2025 Serum or plasma alanine aminotransferase (ALT) measurement 8 U/L <35 [facility] Absolute lymphocyte countOrd ered By: Leandro Sanchez on 01-01-2025 Lymphocytes Auto (Unsp spec) [#/Vol] 3.90 10*3/uL 0.83-4.51 [facility] Absolute neutrophil countOrd ered By: Leandro Sanchez on 01-01-2025 Absolute neutrophil count 8.9 X10^3/uL High 2.0-7.7 [facility] Albumin [Mass/Vol]Ordered By : Leandro Sanchez on 01-01-2025 Serum or plasma albumin measurement (mass/volume) 3.7 g/dL 3.4-4.8 [facility] Albumin/Globulin [Mass ratio ]Ordered By: Leandro Sanchez on 01-01-2025 Serum or plasma albumin/globulin mass ratio 1.2 RATIO 0.9-2.4 [facility] Anion gap [Moles/Vol]Ordered By: Leandro Sanchez on 01-01-2025 Anion gap in Serum or Plasma 11 5-15 [facility] Anion gap in Serum or Plasma Ordered By: Leandro Sanchez on 01-01-2025 Anion gap [Moles/Vol] 11 mmol/L 5-15 [facility] BUN/creatinine ratioOrdered By: Leandro Sanchez on 01-01-2025 Urea nitrogen/Creatinine [Mass ratio] 8.7 mg/mg Low 10-20 [facility] BUN/creatinine ratio 8.7 RATIO Low 10-20 [facility] Bilirubin, totalOrdered By: Leandro Sanchez on 01-01-2025 Bilirubin [Mass/Vol] mg/dL 0.00-1.30 [facility] Bilirubin, total < 0.15 mg/dL 0.00-1.30 [facility] Blood basophils/100 leukocyt esOrdered By: Leandro Sanchez on 01-01-2025 Basophils/100 WBC (Bld) 1 % 0-1 [facility] Blood eosinophils/100 leukoc ytesOrdered By: Leandro Sanchez on 01-01-2025 Eosinophils/100 WBC (Bld) 6 % High 0-5 [facility] Blood lymphocytes/100 leukoc ytesOrdered By: Leandro Sanchez on 01-01-2025 Lymphocytes/100 WBC (Bld) 24 % 19-41 [facility] Blood metamyelocytes/100 scott kocytesOrdered By: Leandro Sanchez on 01-01-2025 Metamyelocytes/100 WBC (Bld) 7 % High 0-1 [facility] Blood metamyelocytes/100 leukocytes 7 % 0-10 [facility] Blood monocytes/100 leukocyt esOrdered By: Leandro Sanchez on 01-01-2025 Monocytes/100 WBC (Bld) 7 % 0-10 [facility] Blood segmented neutrophils/ 100 leukocytesOrdered By: Leandro Sanchez on 01-01-2025 Segmented neutrophils/100 WBC (Bld) 54 % 47-70 [facility] CBC W/Diff, Automatedon PATH REV N/A Normal [facility] Comment on above: Result Comment: AMENDED REPORT 01/01/251802 PATH REV previously reported as: January Performed By: #### L 500.2500, L100.0100 ####[facility] [address] [place], [address] Calcium [Mass/Vol]Ordered By : Leandro Sanchez on 01-01-2025 Serum or plasma calcium measurement (mass/volume) 9.0 mg/dL 7.6-11.0 [facility] Carbon dioxide, total [Moles /volume] in Central venous bloodOrdered By: Leandro Sanchez on 01-01-2025 CO2 [Moles/Vol] 28.7 mmol/L 21.0-32.0 [facility] Carbon dioxide, total [Moles/volume] in Central venous blood 28.7 mmol/L 21.0-32.0 [facility] Cells counted Molgen (Bld/Ti ss) [#]Ordered By: Leandro Sanchez on 01-01-2025 Total cell count 100 MANUAL DIFF [facility] Chest 1 View (Portable)on Chest 1 View (Portable) Normal [facility] Chloride assayOrdered By: Jose Sanchez on 01-01-2025 Chloride [Moles/Vol] 91 mmol/L Low 98-108 [facility] Chloride assay 91 mmol/L Low 98-108 [facility] Comprehensive Metabolic Prof ilon 01-01-2025 Albumin [Mass/Vol] 3.7 g/dL Normal 3.4-4.8 [facility] Comment on above: Performed By: #### L 501.2450, L500.4050, L100.0100 ####[facility] [address] [place], [address] Albumin/Globulin [Mass ratio] 1.2 {ratio} Normal 0.9-2.4 [facility] Comment on above: Performed By: #### L 501.2450, L500.4050, L100.0100 ####[facility] [address] [place], [address] ALK PHOS 111 U/L High 35-104 [facility] Comment on above: Performed By: #### L 501.2450, L500.4050, L100.0100 ####[facility] [address] [place], [address] ALT [Catalytic activity/Vol] 8 U/L Normal <=34 [facility] Comment on above: Performed By: #### L 501.2450, L500.4050, L100.0100 ####[facility] [address] [place], [address] AST [Catalytic activity/Vol] 13 U/L Normal <=31 [facility] Comment on above: Performed By: #### L 501.2450, L500.4050, L100.0100 ####[facility] [address] [place], [address] BUN/CRE 8.7 RATIO Low 10-20 [facility] Comment on above: Performed By: #### L 501.2450, L500.4050, L100.0100 ####[facility] [address] [place], [address] Calcium [Mass/Vol] 9.0 mg/dL Normal 7.6-11.0 [facility] Comment on above: Performed By: #### L 501.2450, L500.4050, L100.0100 ####[facility] [address] [place], [address] Chloride [Moles/Vol] 91 mmol/L Low 98-108 [facility] Comment on above: Performed By: #### L 501.2450, L500.4050, L100.0100 ####[facility] [address] [place], [address] CO2 [Moles/Vol] 28.7 mmol/L Normal 21.0-32.0 [facility] Comment on above: Performed By: #### L 501.2450, L500.4050, L100.0100 ####[facility] [address] [place], [address] Creatinine [Mass/Vol] 0.76 mg/dL Normal 0.70-1.20 [facility] Comment on above: Performed By: #### L 501.2450, L500.4050, L100.0100 ####[facility] [address] [place], [address] ECRCL 69.70 ml/min Normal 50-250 [facility] Comment on above: Performed By: #### L 501.2450, L500.4050, L100.0100 ####[facility] [address] [place], [address] GAP 11 Normal 5-15 [facility] Comment on above: Performed By: #### L 501.2450, L500.4050, L100.0100 ####[facility] [address] [place], [address] GFR/1.73 sq M.predicted among non-blacks MDRD (S/P/Bld) [Vol rate/Area] 89 mL/min/{1.73_m2} Normal >60 [facility] Comment on above: Result Comment: mL/m in/1.73m2 CKD-EPI Creatinine Equation (2020) Performed By: #### L 501.2450, L500.4050, L100.0100 ####[facility] [address] [place], [address] Globulin (S) [Mass/Vol] 3.2 g/dL Normal 2.2-4.2 [facility] Comment on above: Performed By: #### L 501.2450, L500.4050, L100.0100 ####[facility] [address] [place], [address] Glucose [Mass/Vol] 111 mg/dL High 70-99 [facility] Comment on above: Performed By: #### L 501.2450, L500.4050, L100.0100 ####[facility] [address] [place], [address] Potassium [Moles/Vol] 4.0 mmol/L Normal 3.3-5.1 [facility] Comment on above: Performed By: #### L 501.2450, L500.4050, L100.0100 ####[facility] [address] [place], [address] Sodium [Moles/Vol] 130 mmol/L Low 133-145 [facility] Comment on above: Performed By: #### L 501.2450, L500.4050, L100.0100 ####[facility] [address] [place], [address] T BILI < 0.15 Normal 0.00-1.30 [facility] Comment on above: Performed By: #### L 501.2450, L500.4050, L100.0100 ####[facility] [address] [place], [address] T PROT 6.9 g/dL Normal 5.9-8.4 [facility] Comment on above: Performed By: #### L 501.2450, L500.4050, L100.0100 ####[facility] [address] [place], [address] Urea nitrogen [Mass/Vol] 7 mg/dL Normal 4-19 [facility] Comment on above: Performed By: #### L 501.2450, L500.4050, L100.0100 ####[facility] [address] [place], [address] Creatinine [Mass/Vol]Ordered By: Leandro Sanchez on 01-01-2025 Serum creatinine measurement (mass/volume) 0.76 mg/dL 0.70-1.20 [facility] Emergency Department Summary on 01-01-2025 Emergency Department Summary Normal [facility] Eosinophils/100 WBC (Bld)Ord ered By: Leandro Sanchez on 01-01-2025 Blood eosinophils/100 leukocytes 6 % High 0-5 [facility] Erythrocyte distribution wid th (RBC) [Ratio]Ordered By: Leandro Sanchez on 01-01-2025 Erythrocyte distribution width ratio 15.2 % High 11.6-14.6 [facility] Erythrocyte distribution width standard deviation 47.7 fl High 35.1-43.9 [facility] Erythrocyte distribution wid th ratioOrdered By: Leandro Sanchez on 01-01-2025 Erythrocyte distribution width (RBC) [Ratio] 15.2 % High 11.6-14.6 [facility] Erythrocyte distribution wid th standard deviationOrdered By: Leandro Sanchez on 01-01-2025 Erythrocyte distribution width (RBC) [Ratio] 47.7 fl High 35.1-43.9 [facility] Estimation of creatinine binu aranceOrdered By: Leandro Sanchez on 01-01-2025 Estimation of creatinine clearance 69.70 ml/min 50-250 [facility] GFR/1.73 sq M.predicted gregory g non-blacks MDRD (S/P/Bld) [Vol rate/Area]Ordered By: Leandro Sanchez on 01-01-2025 Glomerular filtration rate (GFR) estimation/1.73 sq m using serum, plasma, or whole b 89 >60 [facility] Glomerular filtration rate ( GFR) estimation/1.73 sq m using serum, plasma, or whole bOrdered By: Leandro Sanchez on 01-01-2025 GFR/1.73 sq M.predicted among non-blacks MDRD (S/P/Bld) [Vol rate/Area] 89 mL/min/{1.73_m2} >60 [facility] Glucose [Mass/Vol]Ordered By : Leandro Sanchez on 01-01-2025 Serum glucose measurement (mass/volume) 111 mg/dL High 70-99 [facility] Hematocrit Auto (Bld) [Volum e fraction]Ordered By: Leandro Sanchez on 01-01-2025 Hematocrit (Bld) [Volume fraction] 39.1 % 37-47 [facility] Automated blood hematocrit (percentage) 39.1 % 37-47 [facility] Hemoglobin measurementOrdere d By: Leandro Sanchez on 01-01-2025 Hemoglobin (Bld) [Mass/Vol] 12.0 g/dL 12.0-15.0 [facility] Hemoglobin measurement 12.0 g/dL 12.0-15.0 [facility] Lipaseon 01-01-2025 Lipase [Catalytic activity/Vol] 75 U/L Normal 13-75 [facility] Comment on above: Result Comment: Jenny capellan note:LIPASE revised reference range effective 23.New Lipase methodology. Expected to produce lower valuesthan the previous assay method.NEW Reference Range: 13 - 75 U/L Performed By: #### L 501.2450, L500.4050, L100.0100 ####[facility] [address] [place], [address] Lipase measurementOrdered By : Leandro Sanchez on 01-01-2025 Lipase measurement 75 U/L 13-75 [facility] Lymphocytes Auto (Unsp spec) [#/Vol]Ordered By: Leandro Sanchez on 01-01-2025 Absolute lymphocyte count 3.90 X10^3/uL 0.83-4.51 [facility] Lymphocytes/100 WBC (Bld)Ord ered By: Leandro Sanchez on 01-01-2025 Blood lymphocytes/100 leukocytes 24 % 19-41 [facility] MCV (RBC) [Entitic vol]Order ed By: Leandro Sanchez on 01-01-2025 MCV (mean corpuscular volume) determination 86.7 fL 81-99 [facility] MCV (mean corpuscular volume ) determinationOrdered By: Leandro Sanchez on 01-01-2025 MCV (RBC) [Entitic vol] 86.7 fL 81-99 [facility] Mean corpuscular hemoglobin (MCH) determinationOrdered By: Leandro Sanchez on 01-01-2025 MCH (RBC) [Entitic mass] 26.6 pg Low 27.0-32.0 [facility] Mean corpuscular hemoglobin (MCH) determination 26.6 pg Low 27.0-32.0 [facility] Mean corpuscular hemoglobin concentration (MCHC) determinationOrdered By: Leandro Sanchez on 01-01-2025 Mean corpuscular hemoglobin concentration (MCHC) determination 30.7 g/dL Low 32-36 [facility] Mean platelet volume determi nationOrdered By: Leandro Sanchez on 01-01-2025 Mean platelet volume determination 8.9 fl 6.2-12.0 [facility] Microcytosis evaluation pane lOrdered By: Leandro Sanchez on 01-01-2025 Microcytosis evaluation panel 1+ [facility] Myelocyte %Ordered By: Leandro Sanchez on 01-01-2025 Myelocyte % 1 % 0-1 [facility] Neutrophil percentageOrdered By: Leandro Sanchez on 01-01-2025 Neutrophil percentage Not Reportable [facility] No Panel InformationOrdered By: Leandro Sanchez on 01-01-2025 13 U/L <32 [facility] Pathologist review Geovany (Unsp spec) [Interp]Ordered By: Leandro Sanchez on 01-01-2025 Review by pathologist Tiesha gotti [facility] Platelet countOrdered By: Jose Sanchez on 01-01-2025 Platelets (Bld) [#/Vol] 553 10*3/uL High 150-450 [facility] Platelet count 553 K/mm3 High 150-450 [facility] Potassium (Unsp spec) [Mass/ Vol]Ordered By: Leandro Sanchez on 01-01-2025 Potassium measurement (mass/volume) 4.0 mmol/L 3.3-5.1 [facility] Potassium measurement (mass/ volume)Ordered By: Leandro Sanchez on 01-01-2025 Potassium (Unsp spec) [Mass/Vol] 4.0 mmol/L 3.3-5.1 [facility] RBC Auto (Bld) [#/Vol]Ordere d By: Leandro Sanchez on 01-01-2025 RBC (Bld) [#/Vol] 4.51 10*6/uL 4.2-5.4 [facility] Automated blood erythrocyte count 4.51 M/mm3 4.2-5.4 [facility] Review by pathologistOrdered By: Leandro Sanchez on 01-01-2025 Pathologist review Geovany (Unsp spec) [Interp] N/A [facility] Segmented neutrophils/100 WB C (Bld)Ordered By: Leandro Sanchez on 01-01-2025 Blood segmented neutrophils/100 leukocytes 54 % 47-70 [facility] Serum creatinine measurement (mass/volume)Ordered By: Leandro Sanchez on 01-01-2025 Creatinine [Mass/Vol] 0.76 mg/dL 0.70-1.20 [facility] Serum globulin measurementOr dered By: Leandro Sanchez on 01-01-2025 Globulin (S) [Mass/Vol] 3.2 g/dL 2.2-4.2 [facility] Serum globulin measurement 3.2 g/dL 2.2-4.2 [facility] Serum glucose measurement (m ass/volume)Ordered By: Leandro Sanchez on 01-01-2025 Glucose [Mass/Vol] 111 mg/dL High 70-99 [facility] Serum or plasma alanine pimentel otransferase (ALT) measurementOrdered By: Leandro Sanchez on 01-01-2025 ALT [Catalytic activity/Vol] 8 U/L <35 [facility] Serum or plasma albumin esthela urement (mass/volume)Ordered By: Leandro Sanchez on 01-01-2025 Albumin [Mass/Vol] 3.7 g/dL 3.4-4.8 [facility] Serum or plasma albumin/glob ulin mass ratioOrdered By: Leandro Sanchez on 01-01-2025 Albumin/Globulin [Mass ratio] 1.2 {ratio} 0.9-2.4 [facility] Serum or plasma alkaline jose sphatase measurementOrdered By: Leandro Sanchez on 01-01-2025 ALP [Catalytic activity/Vol] 111 U/L High 35-104 [facility] Serum or plasma calcium esthela urement (mass/volume)Ordered By: Leandro Sanchez on 01-01-2025 Calcium [Mass/Vol] 9.0 mg/dL 7.6-11.0 [facility] Serum or plasma urea nitroge n measurement (mass/volume)Ordered By: Leandro Sanchez on 01-01-2025 Urea nitrogen [Mass/Vol] 7 mg/dL 4-19 [facility] Sodium levelOrdered By: Leandro Sanchez on 01-01-2025 Sodium [Moles/Vol] 130 mmol/L Low 133-145 [facility] Sodium level 130 mmol/L Low 133-145 [facility] Total cell countOrdered By: Leandro Sanchez on 01-01-2025 Cells counted [employer] (Bld/Tiss) [#] 100 MANUAL DIFF [facility] Total proteinOrdered By: Bhargavi Sanchez on 01-01-2025 Protein [Mass/Vol] 6.9 g/dL 5.9-8.4 [facility] Total protein 6.9 g/dL 5.9-8.4 [facility] Urea nitrogen [Mass/Vol]Orde red By: Leandro Sanchez on 01-01-2025 Serum or plasma urea nitrogen measurement (mass/volume) 7 mg/dL 4-19 [facility] White blood cell (WBC) count Ordered By: Leandro Sanchez on 01-01-2025 WBC (Bld) [#/Vol] 16.5 10*3/uL High 4.4-11.0 [facility] White blood cell (WBC) count 16.5 K/mm3 High 4.4-11.0 [facility] CNPNon 12-27-2024 CNPN Telephone (DDQ) -------- VINGRACIE ([id number]) 1965 F Date Time Provider Department 12/27/24 [...] Patient returned call. Can be reached at: [phone] (home) Juan Bloom LPN 12/28/2024 3:45 PM [...] notify Juan Senior as well MCKENNA Lehaily BessyViridianaNoemí 01/04/2025 3:16 PM Signed Patient called back. She would like to speak with Juan Senior to touch base. She has a pain management appt at 1:00 tomorrow. [phone] (home) Juan Senior APRN.CNP 01/05/2025 10:42 AM Signed Spoke with patient. She says she is feeling better but still experiencing abdominal pain. 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 Normal [facility] ALP [Catalytic activity/Vol] Ordered By: Mo Velasco on 12-24-2024 Serum or plasma alkaline phosphatase measurement 117 U/L High 35-104 [facility] ALT [Catalytic activity/Vol] Ordered By: Mo Velasco on 12-24-2024 Serum or plasma alanine aminotransferase (ALT) measurement 18 U/L <35 [facility] Absolute lymphocyte countOrd ered By: Mo Velasco on 12-24-2024 Lymphocytes Auto (Unsp spec) [#/Vol] 2.44 10*3/uL 0.83-4.51 [facility] Absolute neutrophil countOrd ered By: Mo Velasco on 12-24-2024 Absolute neutrophil count 14.1 X10^3/uL High 2.0-7.7 [facility] Albumin [Mass/Vol]Ordered By : Mo Velasco on 12-24-2024 Serum or plasma albumin measurement (mass/volume) 3.4 g/dL 3.4-4.8 [facility] Anion gap [Moles/Vol]Ordered By: Mo Velasco on 12-24-2024 Anion gap in Serum or Plasma 13 5-15 [facility] Anion gap in Serum or Plasma Ordered By: Mo Velasco on 12-24-2024 Anion gap [Moles/Vol] 13 mmol/L - [facility] Automated lymphocyte count a s percentage of total leukocytesOrdered By: Mo Velasco on 12-24-2024 Lymphocytes/100 WBC Auto (Unsp spec) 13.4 % Low 19-41 [facility] BUN/creatinine ratioOrdered By: Mo Velasco on 12-24-2024 Urea nitrogen/Creatinine [Mass ratio] 4.2 mg/mg Low 10-20 [facility] BUN/creatinine ratio 4.2 RATIO Low 10-20 [facility] Basic Metabolic Profile (BMP )on 12-24-2024 BUN/CRE 4.2 RATIO Low 10-20 [facility] Comment on above: Performed By: #### L 100.0100, L501.2450, L500.3400, L500.2500 ####[facility] [address] [place], [address] Calcium [Mass/Vol] 9.3 mg/dL Normal 7.6-11.0 [facility] Comment on above: Performed By: #### L 100.0100, L501.2450, L500.3400, L500.2500 ####[facility] [address] [place], [address] Chloride [Moles/Vol] 97 mmol/L Low 98-108 [facility] Comment on above: Performed By: #### L 100.0100, L501.2450, L500.3400, L500.2500 ####[facility] [address] [place], [address] CO2 [Moles/Vol] 28.1 mmol/L Normal 21.0-32.0 [facility] Comment on above: Performed By: #### L 100.0100, L501.2450, L500.3400, L500.2500 ####[facility] [address] [place], [address] Creatinine [Mass/Vol] 0.77 mg/dL Normal 0.70-1.20 [facility] Comment on above: Performed By: #### L 100.0100, L501.2450, L500.3400, L500.2500 ####[facility] [address] [place], [address] ECRCL 63.47 ml/min Normal 50-250 [facility] Comment on above: Performed By: #### L 100.0100, L501.2450, L500.3400, L500.2500 ####[facility] [address] [place], [address] GAP 13 Normal 5-15 [facility] Comment on above: Performed By: #### L 100.0100, L501.2450, L500.3400, L500.2500 ####[facility] [address] [place], [address] GFR/1.73 sq M.predicted among non-blacks MDRD (S/P/Bld) [Vol rate/Area] 88 mL/min/{1.73_m2} Normal >60 [facility] Comment on above: Result Comment: mL/m in/1.73m2 CKD-EPI Creatinine Equation (2020) Performed By: #### L 100.0100, L501.2450, L500.3400, L500.2500 ####[facility] [address] [place], [address] Glucose [Mass/Vol] 131 mg/dL High 70-99 [facility] Comment on above: Performed By: #### L 100.0100, L501.2450, L500.3400, L500.2500 ####[facility] [address] [place], [address] Potassium [Moles/Vol] 4.1 mmol/L Normal 3.3-5.1 [facility] Comment on above: Performed By: #### L 100.0100, L501.2450, L500.3400, L500.2500 ####[facility] [address] [place], [address] Sodium [Moles/Vol] 137 mmol/L Normal 133-145 [facility] Comment on above: Performed By: #### L 100.0100, L501.2450, L500.3400, L500.2500 ####[facility] [address] [place], [address] Urea nitrogen [Mass/Vol] 3 mg/dL Low 4-19 [facility] Comment on above: Performed By: #### L 100.0100, L501.2450, L500.3400, L500.2500 ####[facility] [address] [place], [address] Basophil percentageOrdered B y: Mo Velasco on 12-24-2024 Basophils/100 WBC (Bld) 0.7 % 0-1 [facility] Basophil percentage 0.7 % 0-1 [facility] Bilirubin directOrdered By: Mo Velasco on 12-24-2024 Bilirubin.direct [Mass/Vol] 0.09 mg/dL 0.00-0.30 [facility] Bilirubin, totalOrdered By: Mo Velasco on 12-24-2024 Bilirubin [Mass/Vol] 0.19 mg/dL 0.00-1.30 [facility] Bilirubin, total 0.19 mg/dL 0.00-1.30 [facility] Bilirubin.direct [Mass/Vol]O rdered By: Mo Velasco on 12-24-2024 Bilirubin direct 0.09 mg/dL 0.00-0.30 [facility] CBC W/Diff, Automatedon 11-27 Absolute Lymph 2.44 X10 3/uL Normal 0.83-4.51 [facility] Comment on above: Performed By: #### L 100.0100, L501.2450, L500.3400, L500.2500 ####[facility] [address] [place], [address] Absolute Neut 14.1 X10 3/uL High 2.0-7.7 [facility] Comment on above: Performed By: #### L 100.0100, L501.2450, L500.3400, L500.2500 ####[facility] [address] [place], [address] Basophils/100 WBC (Bld) 0.7 % Normal 0-1 [facility] Comment on above: Performed By: #### L 100.0100, L501.2450, L500.3400, L500.2500 ####[facility] [address] [place], [address] Eosinophils/100 WBC (Bld) 2.3 % Normal 0-5 [facility] Comment on above: Performed By: #### L 100.0100, L501.2450, L500.3400, L500.2500 ####[facility] [address] [place], [address] Erythrocyte distribution width (RBC) [Ratio] 14.6 % Normal 11.6-14.6 [facility] Comment on above: Performed By: #### L 100.0100, L501.2450, L500.3400, L500.2500 ####[facility] [address] [place], [address] Hematocrit (Bld) [Volume fraction] 33.8 % Low 37-47 [facility] Comment on above: Performed By: #### L 100.0100, L501.2450, L500.3400, L500.2500 ####[facility] [address] [place], [address] Hemoglobin (Bld) [Mass/Vol] 10.8 g/dL Low 12.0-15.0 [facility] Comment on above: Performed By: #### L 100.0100, L501.2450, L500.3400, L500.2500 ####[facility] [address] [place], [address] IG% 0.900 Normal 0.0-0.9 [facility] Comment on above: Result Comment: IG% - Immature Granulocytes (promyelocytes, myelocytes andmetamyelocytes) > 1% indicates that a LEFT SHIFT is Present. Performed By: #### L 100.0100, L501.2450, L500.3400, L500.2500 ####[facility] [address] [place], [address] Lymphocytes/100 WBC (Bld) 13.4 % Low 19-41 [facility] Comment on above: Performed By: #### L 100.0100, L501.2450, L500.3400, L500.2500 ####[facility] [address] [place], [address] MCH (RBC) [Entitic mass] 26.9 pg Low 27.0-32.0 [facility] Comment on above: Performed By: #### L 100.0100, L501.2450, L500.3400, L500.2500 ####[facility] [address] [place], [address] MCHC (RBC) [Mass/Vol] 32.0 g/dL Normal 32-36 [facility] Comment on above: Performed By: #### L 100.0100, L501.2450, L500.3400, L500.2500 ####[facility] [address] [place], [address] MCV (RBC) [Entitic vol] 84.1 fL Normal 81-99 [facility] Comment on above: Performed By: #### L 100.0100, L501.2450, L500.3400, L500.2500 ####[facility] [address] [place], [address] Monocytes/100 WBC (Bld) 5.5 % Normal 0-10 [facility] Comment on above: Performed By: #### L 100.0100, L501.2450, L500.3400, L500.2500 ####[facility] [address] [place], [address] Neutrophils/100 WBC (Bld) 77.2 % High 47-70 [facility] Comment on above: Performed By: #### L 100.0100, L501.2450, L500.3400, L500.2500 ####[facility] [address] [place], [address] Nucleated RBC (Bld) [#/Vol] 0 10*3/uL Normal 0-5 [facility] Comment on above: Performed By: #### L 100.0100, L501.2450, L500.3400, L500.2500 ####[facility] [address] [place], [address] Platelet mean volume (Bld) [Entitic vol] 9.3 fL Normal 6.2-12.0 [facility] Comment on above: Performed By: #### L 100.0100, L501.2450, L500.3400, L500.2500 ####[facility] [address] [place], [address] Platelets (Bld) [#/Vol] 396 10*3/uL Normal 150-450 [facility] Comment on above: Performed By: #### L 100.0100, L501.2450, L500.3400, L500.2500 ####[facility] [address] [place], [address] RBC (Bld) [#/Vol] 4.02 10*6/uL Low 4.2-5.4 [facility] Comment on above: Performed By: #### L 100.0100, L501.2450, L500.3400, L500.2500 ####[facility] [address] [place], [address] RDW SD 45.1 fl High 35.1-43.9 [facility] Comment on above: Performed By: #### L 100.0100, L501.2450, L500.3400, L500.2500 ####[facility] [address] [place], [address] WBC (Bld) [#/Vol] 18.2 10*3/uL High 4.4-11.0 [facility] Comment on above: Performed By: #### L 100.0100, L501.2450, L500.3400, L500.2500 ####[facility] [address] [place], [address] Calcium [Mass/Vol]Ordered By : Mo Velasco on 12-24-2024 Serum or plasma calcium measurement (mass/volume) 9.3 mg/dL 7.6-11.0 [facility] Carbon dioxide, total [Moles /volume] in Central venous bloodOrdered By: Mo Velasco on 12-24-2024 CO2 [Moles/Vol] 28.1 mmol/L 21.0-32.0 [facility] Carbon dioxide, total [Moles/volume] in Central venous blood 28.1 mmol/L 21.0-32.0 [facility] Chloride assayOrdered By: Roman Velasco on 12-24-2024 Chloride [Moles/Vol] 97 mmol/L Low 98-108 [facility] Chloride assay 97 mmol/L Low 98-108 [facility] Creatinine [Mass/Vol]Ordered By: Mo Velasco on 12-24-2024 Serum creatinine measurement (mass/volume) 0.77 mg/dL 0.70-1.20 [facility] Emergency Department Summary on 12-24-2024 Emergency Department Summary Normal [facility] Eosinophil percentageOrdered By: Mo Velasco on 12-24-2024 Eosinophils/100 WBC (Bld) 2.3 % 0-5 [facility] Eosinophil percentage 2.3 % 0-5 [facility] Erythrocyte distribution wid th (RBC) [Ratio]Ordered By: Mo Velasco on 12-24-2024 Erythrocyte distribution width ratio 14.6 % 11.6-14.6 [facility] Erythrocyte distribution wid th ratioOrdered By: Mo Velasco on 12-24-2024 Erythrocyte distribution width (RBC) [Ratio] 14.6 % 11.6-14.6 [facility] Erythrocyte distribution wid th standard deviationOrdered By: Mo Velasco on 12-24-2024 Erythrocyte distribution width (RBC) [Ratio] 45.1 fl High 35.1-43.9 [facility] Erythrocyte distribution width standard deviation 45.1 fl High 35.1-43.9 [facility] Estimation of creatinine binu aranceOrdered By: Mo Velasco on 12-24-2024 Estimation of creatinine clearance 63.47 ml/min 50-250 [facility] GFR/1.73 sq M.predicted gregory g non-blacks MDRD (S/P/Bld) [Vol rate/Area]Ordered By: Mo Velasco on 12-24-2024 Glomerular filtration rate (GFR) estimation/1.73 sq m using serum, plasma, or whole b 88 >60 [facility] Glomerular filtration rate ( GFR) estimation/1.73 sq m using serum, plasma, or whole bOrdered By: Mo Velasco on 12-24-2024 GFR/1.73 sq M.predicted among non-blacks MDRD (S/P/Bld) [Vol rate/Area] 88 mL/min/{1.73_m2} >60 [facility] Glucose [Mass/Vol]Ordered By : Mo Velasco on 12-24-2024 Serum glucose measurement (mass/volume) 131 mg/dL High 70-99 [facility] Hematocrit Auto (Bld) [Volum e fraction]Ordered By: Mo Velasco on 12-24-2024 Hematocrit (Bld) [Volume fraction] 33.8 % Low 37-47 [facility] Automated blood hematocrit (percentage) 33.8 % Low 37-47 [facility] Hemoglobin measurementOrdere d By: Mo Velasco on 12-24-2024 Hemoglobin (Bld) [Mass/Vol] 10.8 g/dL Low 12.0-15.0 [facility] Hemoglobin measurement 10.8 g/dL Low 12.0-15.0 [facility] Immature granulocytes/100 WB C Auto (Bld)Ordered By: Mo Velasco on 12-24-2024 Immature granulocytes/100 WBC (Bld) 0.900 % 0.0-0.9 [facility] Automated immature granulocyte percentage 0.900 % 0.0-0.9 [facility] Lipaseon 12-24-2024 Lipase [Catalytic activity/Vol] 34 U/L Normal 13-75 [facility] Comment on above: Result Comment: Jenny capellan note:LIPASE revised reference range effective 23.New Lipase methodology. Expected to produce lower valuesthan the previous assay method.NEW Reference Range: 13 - 75 U/L Performed By: #### L 100.0100, L501.2450, L500.3400, L500.2500 ####[facility] [address] [place], [place], [id number] Lipase measurementOrdered By : Mo Velasco on 12-24-2024 Lipase measurement 34 U/L [facility] Liver Profileon 12-24-2024 Albumin [Mass/Vol] 3.4 g/dL Normal 3.4-4.8 [facility] Comment on above: Performed By: #### L 100.0100, L501.2450, L500.3400, L500.2500 ####[facility] [address] [place], [address] ALK PHOS 117 U/L High 35-104 [facility] Comment on above: Performed By: #### L 100.0100, L501.2450, L500.3400, L500.2500 ####[facility] [address] [place], [address] ALT [Catalytic activity/Vol] 18 U/L Normal <=34 [facility] Comment on above: Performed By: #### L 100.0100, L501.2450, L500.3400, L500.2500 ####[facility] [address] [place], [address] AST [Catalytic activity/Vol] 16 U/L Normal <=31 [facility] Comment on above: Performed By: #### L 100.0100, L501.2450, L500.3400, L500.2500 ####[facility] [address] [place], [address] Bilirubin [Mass/Vol] 0.19 mg/dL Normal 0.00-1.30 [facility] Comment on above: Performed By: #### L 100.0100, L501.2450, L500.3400, L500.2500 ####[facility] [address] [place], [address] Bilirubin.direct [Mass/Vol] 0.09 mg/dL Normal 0.00-0.30 [facility] Comment on above: Performed By: #### L 100.0100, L501.2450, L500.3400, L500.2500 ####[facility] [address] [place], [address] Globulin (S) [Mass/Vol] 3.7 g/dL Normal 2.2-4.2 [facility] Comment on above: Performed By: #### L 100.0100, L501.2450, L500.3400, L500.2500 ####[facility] [address] [place], [address] T PROT 7.1 g/dL Normal 5.9-8.4 [facility] Comment on above: Performed By: #### L 100.0100, L501.2450, L500.3400, L500.2500 ####[facility] [address] [place], [address] Lymphocytes Auto (Unsp spec) [#/Vol]Ordered By: Mo Velasco on 12-24-2024 Absolute lymphocyte count 2.44 X10^3/uL 0.83-4.51 [facility] Lymphocytes/100 WBC Auto (Un sp spec)Ordered By: Mo Velasco on 12-24-2024 Automated lymphocyte count as percentage of total leukocytes 13.4 % Low 19-41 [facility] MCV (RBC) [Entitic vol]Order ed By: Mo Velasco on 12-24-2024 MCV (mean corpuscular volume) determination 84.1 fL 81-99 [facility] MCV (mean corpuscular volume ) determinationOrdered By: Mo Velasco on 12-24-2024 MCV (RBC) [Entitic vol] 84.1 fL 81-99 [facility] Mean corpuscular hemoglobin (MCH) determinationOrdered By: Mo Velasco on 12-24-2024 MCH (RBC) [Entitic mass] 26.9 pg Low 27.0-32.0 [facility] Mean corpuscular hemoglobin (MCH) determination 26.9 pg Low 27.0-32.0 [facility] Mean corpuscular hemoglobin concentration (MCHC) determinationOrdered By: Mo Velasco on 12-24-2024 Mean corpuscular hemoglobin concentration (MCHC) determination 32.0 g/dL 32-36 [facility] Mean platelet volume determi nationOrdered By: Mo Velasco on 12-24-2024 Mean platelet volume determination 9.3 fl 6.2-12.0 [facility] Monocyte percentageOrdered B y: Mo Velasco on 12-24-2024 Monocytes/100 WBC (Bld) 5.5 % 0-10 [facility] Monocyte percentage 5.5 % 0-10 [facility] Neutrophil percentageOrdered By: Mo Velasco on 12-24-2024 Neutrophils/100 WBC (Bld) 77.2 % High 47-70 [facility] Neutrophil percentage 77.2 % High 47-70 [facility] No Panel InformationOrdered By: Mo Velasco on 12-24-2024 16 U/L <32 [facility] Nucleated red blood cell per centageOrdered By: Mo Velasco on 12-24-2024 Nucleated red blood cell percentage 0 % 0-5 [facility] Platelet countOrdered By: Roman Velasco on 12-24-2024 Platelets (Bld) [#/Vol] 396 10*3/uL 150-450 [facility] Platelet count 396 K/mm3 150-450 [facility] Potassium (Unsp spec) [Mass/ Vol]Ordered By: Mo Velasco on 12-24-2024 Potassium measurement (mass/volume) 4.1 mmol/L 3.3-5.1 [facility] Potassium measurement (mass/ volume)Ordered By: Mo Velasco on 12-24-2024 Potassium (Unsp spec) [Mass/Vol] 4.1 mmol/L 3.3-5.1 [facility] RBC Auto (Bld) [#/Vol]Ordere d By: Mo Velasco on 12-24-2024 RBC (Bld) [#/Vol] 4.02 10*6/uL Low 4.2-5.4 [facility] Automated blood erythrocyte count 4.02 M/mm3 Low 4.2-5.4 [facility] Serum creatinine measurement (mass/volume)Ordered By: Mo Velasco on 12-24-2024 Creatinine [Mass/Vol] 0.77 mg/dL 0.70-1.20 [facility] Serum globulin measurementOr dered By: Mo Velasco on 12-24-2024 Globulin (S) [Mass/Vol] 3.7 g/dL 2.2-4.2 [facility] Serum globulin measurement 3.7 g/dL 2.2-4.2 [facility] Serum glucose measurement (m ass/volume)Ordered By: Mo Velasco on 12-24-2024 Glucose [Mass/Vol] 131 mg/dL High 70-99 [facility] Serum or plasma alanine pimentel otransferase (ALT) measurementOrdered By: Mo Velasco on 12-24-2024 ALT [Catalytic activity/Vol] 18 U/L <35 [facility] Serum or plasma albumin esthela urement (mass/volume)Ordered By: Mo Velasco on 12-24-2024 Albumin [Mass/Vol] 3.4 g/dL 3.4-4.8 [facility] Serum or plasma alkaline jose sphatase measurementOrdered By: Mo Velasco on 12-24-2024 ALP [Catalytic activity/Vol] 117 U/L High 35-104 [facility] Serum or plasma calcium esthela urement (mass/volume)Ordered By: Mo Velasco on 12-24-2024 Calcium [Mass/Vol] 9.3 mg/dL 7.6-11.0 [facility] Serum or plasma urea nitroge n measurement (mass/volume)Ordered By: Mo Velasco on 12-24-2024 Urea nitrogen [Mass/Vol] 3 mg/dL Low - [facility] Sodium levelOrdered By: Mo Velasco on 12-24-2024 Sodium [Moles/Vol] 137 mmol/L 133-145 [facility] Sodium level 137 mmol/L 133-145 [facility] Total proteinOrdered By: Bruce Velasco on 12-24-2024 Protein [Mass/Vol] 7.1 g/dL 5.9-8.4 [facility] Total protein 7.1 g/dL 5.9-8.4 [facility] Urea nitrogen [Mass/Vol]Orde red By: Mo Velasco on 12-24-2024 Serum or plasma urea nitrogen measurement (mass/volume) 3 mg/dL Low - [facility] White blood cell (WBC) count Ordered By: Mo Velasco on 12-24-2024 WBC (Bld) [#/Vol] 18.2 10*3/uL High 4.4-11.0 [facility] White blood cell (WBC) count 18.2 K/mm3 High 4.4-11.0 [facility] CNPNon 12-23-2024 ALE Telephone (GAPRA3) -------- GRACIE BANUELOS ([id number]) 1965 F Date Time Provider Department 12/23/24 [...] Date Reviewed: 12/19/2024 Reviewed by: Tara Youngblood APRN.PROPERTY DISPOSAL OFFICER - Fully Assessed Reason for Visit: Reminder Call [4463] Cmt: Missed call Prescriptions as of 12/23/2024 [...] stress female [N39.3] 11/24/2014 HPV test positive [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 NURSING PROGon 12-20-2024 NURSING PROG HNO ID: [id number] Author: CARROLL LEBLANC RN Service: ? Author Type: Registered Nurse Type: Nursing Progress Note Filed: 12/20/2024 14:56 Note Text: Attempted to reach the patient at the contact number that they provided [phone] (home) . Unable to speak with patient so without identifying the patient the following information was left on their voice mail: Date of procedure, location and report time Prep instructions A message was left informing the patient/patient personal banking representative they must have a responsible adult [...] Number to call with questions or concerns [phone] Number to call to cancel their procedure [phone] Carroll Leblanc RN Normal [facility] CBC W Auto Differential pane l (Bld)on 12-19-2024 Basophils (Bld) [#/Vol] 0.23 10*3/uL High <0.11 [facility] Comment on above: Order Comment: Speci men Type: BLOOD SPECIMEN Ordering Facility: [facility] Address: [address] [place] [address] Performed By: #### 5 7021-8 #### [facility] CLIA [id number] [address] [place] [address] [place] Basophils/100 WBC (Bld) 0.9 % Normal [facility] Comment on above: Order Comment: Speci men Type: BLOOD SPECIMEN Ordering Facility: [facility] Address: [address] [place] [address] Performed By: #### 5 7021-8 #### [facility] CLIA [id number] [address] [place] [address] [place] Dacrocytes LM Ql (Bld) Few Normal [facility] Comment on above: Order Comment: Speci men Type: BLOOD SPECIMEN Ordering Facility: [facility] Address: [address] [place] [address] Performed By: #### 5 7021-8 #### [facility] CLIA [id number] [address] [place] [address] [place] Differential cell count method Nom (Bld) Manual Normal [facility] Comment on above: Order Comment: Speci men Type: BLOOD SPECIMEN Ordering Facility: [facility] Address: [address] [place] [address] Performed By: #### 5 7021-8 #### [facility] CLIA [id number] [address] [place] [address] [place] Eosinophils (Bld) [#/Vol] 0.00 10*3/uL Normal <0.46 [facility] Comment on above: Order Comment: Speci men Type: BLOOD SPECIMEN Ordering Facility: [facility] Address: [address] [place] [address] Performed By: #### 5 7021-8 #### [facility] CLIA [id number] [address] [place] [address] [place] Eosinophils/100 WBC (Bld) 0.0 % Normal [facility] Comment on above: Order Comment: Speci men Type: BLOOD SPECIMEN Ordering Facility: [facility] Address: [address] [place] [address] Performed By: #### 5 7021-8 #### [facility] CLIA [id number] [address] [place] [address] [place] Erythrocyte distribution width (RBC) [Ratio] 14.7 % Normal 11.5-15.0 [facility] Comment on above: Order Comment: Speci men Type: BLOOD SPECIMEN Ordering Facility: [facility] Address: [address] [place] [address] Performed By: #### 5 7021-8 #### [facility] CLIA [id number] [address] [place] [address] [place] Hematocrit (Bld) [Volume fraction] 38.4 % Normal 36.0-46.0 [facility] Comment on above: Order Comment: Speci men Type: BLOOD SPECIMEN Ordering Facility: [facility] Address: [address] [place] [address] Performed By: #### 5 7021-8 #### [facility] CLIA [id number] [address] [place] [address] [place] Hemoglobin (Bld) [Mass/Vol] 11.6 g/dL Normal 11.5-15.5 [facility] Comment on above: Order Comment: Speci men Type: BLOOD SPECIMEN Ordering Facility: [facility] Address: [address] [place] [address] Performed By: #### 5 7021-8 #### [facility] CLIA [id number] [address] [place] [address] [place] Lymphocytes (Bld) [#/Vol] 3.58 10*3/uL Normal 1.00-4.00 [facility] Comment on above: Order Comment: Speci men Type: BLOOD SPECIMEN Ordering Facility: [facility] Address: [address] [place] [address] Performed By: #### 5 7021-8 #### [facility] CLIA [id number] [address] [place] [address] [place] Lymphocytes/100 WBC (Bld) 14.0 % Normal [facility] Comment on above: Order Comment: Speci men Type: BLOOD SPECIMEN Ordering Facility: [facility] Address: [address] [place] [address] Performed By: #### 5 7021-8 #### [facility] CLIA [id number] [address] [place] [address] [place] MCH (RBC) [Entitic mass] 26.7 pg Normal 26.0-34.0 [facility] Comment on above: Order Comment: Speci men Type: BLOOD SPECIMEN Ordering Facility: [facility] Address: [address] [place] [address] Performed By: #### 5 7021-8 #### [facility] CLIA [id number] [address] [place] [address] [place] MCHC (RBC) [Mass/Vol] 30.2 g/dL Low 30.5-36.0 [facility] Comment on above: Order Comment: Speci men Type: BLOOD SPECIMEN Ordering Facility: [facility] Address: [address] [place] [address] Performed By: #### 5 7021-8 #### [facility] CLIA [id number] [address] [place] [address] [place] MCV (RBC) [Entitic vol] 88.5 fL Normal 80.0-100.0 [facility] Comment on above: Order Comment: Speci men Type: BLOOD SPECIMEN Ordering Facility: [facility] Address: [address] [place] [address] Performed By: #### 5 7021-8 #### [facility] CLIA [id number] [address] [place] [address] [place] Metamyelocytes/100 WBC (Bld) 0.9 % Normal [facility] Comment on above: Order Comment: Speci men Type: BLOOD SPECIMEN Ordering Facility: [facility] Address: [address] [place] [address] Performed By: #### 5 7021-8 #### [facility] CLIA [id number] [address] [place] [address] [place] Monocytes (Bld) [#/Vol] 0.90 10*3/uL High <0.87 [facility] Comment on above: Order Comment: Speci men Type: BLOOD SPECIMEN Ordering Facility: [facility] Address: [address] [place] [address] Performed By: #### 5 7021-8 #### [facility] CLIA [id number] [address] [place] [address] [place] Monocytes/100 WBC (Bld) 3.5 % Normal [facility] Comment on above: Order Comment: Speci men Type: BLOOD SPECIMEN Ordering Facility: [facility] Address: [address] [place] [address] Performed By: #### 5 7021-8 #### [facility] CLIA [id number] [address] [place] [address] [place] Neutrophils (Bld) [#/Vol] 20.64 10*3/uL High 1.45-7.50 [facility] Comment on above: Order Comment: Speci men Type: BLOOD SPECIMEN Ordering Facility: [facility] Address: [address] [place] [address] Performed By: #### 5 7021-8 #### [facility] CLIA [id number] [address] [place] [address] [place] Neutrophils/100 WBC (Bld) 80.7 % Normal [facility] Comment on above: Order Comment: Speci men Type: BLOOD SPECIMEN Ordering Facility: [facility] Address: [address] [place] [address] Performed By: #### 5 7021-8 #### [facility] CLIA [id number] [address] [place] [address] [place] Nucleated RBC (Bld) [#/Vol] 10*3/uL Normal <0.01 [facility] Comment on above: Order Comment: Speci men Type: BLOOD SPECIMEN Ordering Facility: [facility] Address: [address] [place] [address] Performed By: #### 5 7021-8 #### [facility] CLIA [id number] [address] [place] [address] [place] Nucleated RBC/100 WBC (Bld) [Ratio] 0.0 /100 WBC Normal [facility] Comment on above: Order Comment: Speci men Type: BLOOD SPECIMEN Ordering Facility: [facility] Address: [address] [place] [address] Performed By: #### 5 7021-8 #### [facility] CLIA [id number] [address] [place] [address] [place] Ovalocytes LM Ql (Bld) Few Normal [facility] Comment on above: Order Comment: Speci men Type: BLOOD SPECIMEN Ordering Facility: [facility] Address: [address] [place] [address] Performed By: #### 5 7021-8 #### [facility] CLIA [id number] [address] [place] [address] [place] Platelet mean volume (Bld) [Entitic vol] 10.9 fL Normal 9.0-12.7 [facility] Comment on above: Order Comment: Speci men Type: BLOOD SPECIMEN Ordering Facility: [facility] Address: [address] [place] [address] Performed By: #### 5 7021-8 #### [facility] CLIA [id number] [address] [place] [address] [place] Platelets (Bld) [#/Vol] 331 10*3/uL Normal 150-400 [facility] Comment on above: Order Comment: Speci men Type: BLOOD SPECIMEN Ordering Facility: [facility] Address: [address] [place] [address] Performed By: #### 5 7021-8 #### [facility] CLIA [id number] [address] [place] [address] [place] Platelets Estimate (Bld) [#/Vol] Adequate Normal [facility] Comment on above: Order Comment: Speci men Type: BLOOD SPECIMEN Ordering Facility: [facility] Address: [address] [place] [address] Performed By: #### 5 7021-8 #### [facility] CLIA [id number] [address] [place] [address] [place] Polychromasia LM Ql (Bld) Slight Normal [facility] Comment on above: Order Comment: Speci men Type: BLOOD SPECIMEN Ordering Facility: [facility] Address: [address] [place] [address] Performed By: #### 5 7021-8 #### [facility] CLIA [id number] [address] [place], [place] [address] [place] RBC (Bld) [#/Vol] 4.34 10*6/uL Normal 3.90-5.20 [facility] Comment on above: Order Comment: Speci men Type: BLOOD SPECIMEN Ordering Facility: [facility] Address: [address] [place] [address] Performed By: #### 5 7021-8 #### [facility] CLIA [id number] [address] [place] [address] [place] RED CELL MORPH Reviewed: see result s of individual morphologies Normal [facility] Comment on above: Order Comment: Speci men Type: BLOOD SPECIMEN Ordering Facility: [facility] Address: [address] [place] [address] Performed By: #### 5 7021-8 #### [facility] CLIA [id number] [address] [place] [address] [place] Target cells LM Ql (Bld) Few Normal [facility] Comment on above: Order Comment: Speci men Type: BLOOD SPECIMEN Ordering Facility: [facility] Address: [address] [place] [address] Performed By: #### 5 7021-8 #### [facility] CLIA [id number] [address] [place] [address] [place] WBC (Bld) [#/Vol] 25.58 10*3/uL High 3.70-11.00 [facility] Comment on above: Order Comment: Speci men Type: BLOOD SPECIMEN Ordering Facility: [facility] Address: [address] [place] [address] Performed By: #### 5 7021-8 #### [facility] CLIA [id number] [address] [place] [address] [place] WBC Left Shift Ql (Bld) Present Normal [facility] Comment on above: Order Comment: Speci men Type: BLOOD SPECIMEN Ordering Facility: [facility] Address: [address] [place] [address] Performed By: #### 5 7021-8 #### [facility] CLIA [id number] [address] [place] [address] [place] CNOVon 12-19-2024 CNOV Office Visit (FAMPWS ) -------- GRACIE BANUELOS ([id number]) 1965 F Date Time Provider Department 12/19/24 2:40 PM TARA YOUNGBLOOD During your visit today, we recorded the following information about you: Pulse Respiration Blood pressure Weight 103/minute 16/minute 118/62 62.1 kg Tara Youngblood, SENIOR ERP CONSULTANT.PROPERTY DISPOSAL OFFICER 12/19/2024 3:33 PM Signed Chief Complaint Patient presents with: hospital f/up HPI Gracie Banuelos is a 59 year old female who presents here today for Above Complaints. Gracie is an established patient of Dr. Satnam MD. Concerns today.. Hospital follow-up--- [facility] admission from 12/04-12/12 d/t acute hypoxic respiratory [...] help her quit. 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 Chronic recurrent pancreatitis -- had recent surgery [...] disease (HCC) Alcohol dependence in remission ([facility]) 07/10/2015 Alcohol use disorder 08/27/2017 Alcohol-induced pancreatitis Alcoholic hepatitis 05/18/2012 Alcoholic liver disease ([facility]) 11/16/2013 Anemia Anxiety with depression Arthritis Asthma Chronic hypoxemic respiratory failure (HCC) COPD (chronic obstructive pulmonary disease) ([facility]) 05/25/2012 DDD (degenerative disc disease), cervical 09/03/2018 [...] infectious organism 2017 Severe protein-calorie malnutrition ([facility]) 01/07/2019 Stage 3 severe COPD by GOLD classification ([facility]) 2018 Tobacco use greater than 30 years [...] Other: See (more content not included)... [facility] -------- GRACIE BANUELOS ([id number]) 1965 F Date Time Provider Department 12/19/24 [...] Date Reviewed: 12/19/2024 Reviewed by: Tara Youngblood APRN.PROPERTY DISPOSAL OFFICER - Fully Assessed Reason for Visit: Results [...] stress female [N39.3] 11/24/2014 HPV test positive [[id number]] 11/24/2014 Alcohol dependence in remission (HCC) [F10.21] [...] Encounter Status:Hiral (more content not included)... Normal [facility] Comprehensive metabolic 2000 panelon 12-19-2024 Albumin [Mass/Vol] 3.6 g/dL Low 3.9-4.9 [facility] Comment on above: Order Comment: Speci men Type: BLOOD SPECIMEN Ordering Facility: [facility] Address: [address] [place] [address] Performed By: #### 2 4323-8, 3040-3 #### [facility] CLIA [id number] [address] [place] [address] [place] ALP [Catalytic activity/Vol] 97 U/L Normal 34-123 [facility] Comment on above: Order Comment: Speci men Type: BLOOD SPECIMEN Ordering Facility: [facility] Address: [address] [place] [address] Performed By: #### 2 4323-8, 3040-3 #### [facility] CLIA [id number] [address] [place] [address] [place] ALT [Catalytic activity/Vol] 16 U/L Normal 7-38 [facility] Comment on above: Order Comment: Speci men Type: BLOOD SPECIMEN Ordering Facility: [facility] Address: [address] [place] [address] Performed By: #### 2 4323-8, 3040-3 #### [facility] CLIA [id number] [address] [place] [address] [place] Anion gap [Moles/Vol] 13 mmol/L Normal 8-15 [facility] Comment on above: Order Comment: Speci men Type: BLOOD SPECIMEN Ordering Facility: [facility] Address: [address] [place] [address] Performed By: #### 2 4323-8, 3040-3 #### [facility] CLIA [id number] [address] [place], [place] [address] [place] AST [Catalytic activity/Vol] 14 U/L Normal 13-35 [facility] Comment on above: Order Comment: Speci men Type: BLOOD SPECIMEN Ordering Facility: [facility] Address: [address] [place] [address] Performed By: #### 2 4323-8, 3039-3 #### [facility] CLIA [id number] [address] [place] [address] [place] Bilirubin [Mass/Vol] 0.3 mg/dL Normal 0.2-1.3 [facility] Comment on above: Order Comment: Speci men Type: BLOOD SPECIMEN Ordering Facility: [facility] Address: [address] [place] [address] Performed By: #### 2 4323-8, 3039-3 #### [facility] CLIA [id number] [address] [place] [address] [place] Calcium [Mass/Vol] 8.9 mg/dL Normal 8.5-10.2 [facility] Comment on above: Order Comment: Speci men Type: BLOOD SPECIMEN Ordering Facility: [facility] Address: [address] [place] [address] Performed By: #### 2 4323-8, 3039-3 #### [facility] CLIA [id number] [address] [place] [address] [place] Chloride [Moles/Vol] 97 mmol/L Low 98-107 [facility] Comment on above: Order Comment: Speci men Type: BLOOD SPECIMEN Ordering Facility: [facility] Address: [address] [place] [address] Performed By: #### 2 4323-8, 3039-3 #### [facility] CLIA [id number] [address] [place] [address] [place] CO2 [Moles/Vol] 30 mmol/L Normal 22-30 [facility] Comment on above: Order Comment: Speci men Type: BLOOD SPECIMEN Ordering Facility: [facility] Address: [address] [place] [address] Performed By: #### 2 4323-8, 3040-3 #### [facility] CLIA [id number] [address] [place] [address] [place] Creatinine [Mass/Vol] 0.81 mg/dL Normal 0.58-0.96 [facility] Comment on above: Order Comment: Reggie fajardo Type: BLOOD SPECIMEN Ordering Facility: [facility] Address: [address] [place] [address] Performed By: #### 2 4323-8, 0-3 #### [facility] CLIA [id number] [address] [place] [address] [place] Creatinine and Glomerular filtration rate.predicted panel (S/P/Bld) 83 mL/min/1.73m??? Normal >=60 [facility] Comment on above: Order Comment: Reggie fajardo Type: BLOOD SPECIMEN Ordering Facility: [facility] Address: [address] [place] [address] Result Comment: Pavan mated Glomerular Filtration Rate [...] Performed By: #### 2 4323-8, 3039-3 #### [facility] CLIA [id number] [address] [place] [address] [place] Glucose [Mass/Vol] 86 mg/dL Normal 74-99 [facility] Comment on above: Order Comment: Reggie fajardo Type: BLOOD SPECIMEN Ordering Facility: [facility] Address: [address] [place] [address] Result Comment: The [place] [employer] (ADA) provides guidance for cutoff [...] Standards of Medical Care in Diabetes 2016, [place] [employer]. Diabetes Care. 2016.39(Suppl 1). Performed By: #### 2 4323-8, 3039-3 #### [facility] CLIA [id number] [address] [place] [address] [place] Potassium [Moles/Vol] 4.0 mmol/L Normal 3.7-5.1 [facility] Comment on above: Order Comment: Speci men Type: BLOOD SPECIMEN Ordering Facility: [facility] Address: [address] [place] [address] Performed By: #### 2 4323-8, 3039-3 #### [facility] CLIA [id number] [address] [place] [address] [place] Protein [Mass/Vol] 6.1 g/dL Low 6.3-8.0 [facility] Comment on above: Order Comment: Speci men Type: BLOOD SPECIMEN Ordering Facility: [facility] Address: [address] [place], [place] [address] Performed By: #### 2 4323-8, 3039-3 #### [facility] CLIA [id number] [address] [place], [place] [address] [place] Sodium [Moles/Vol] 140 mmol/L Normal 136-144 [facility] Comment on above: Order Comment: Speci men Type: BLOOD SPECIMEN Ordering Facility: [facility] Address: [address] [place] [address] Performed By: #### 2 4323-8, 0-3 #### [facility] CLIA [id number] [address] [place] [address] [place] Urea nitrogen [Mass/Vol] 8 mg/dL Normal 7-21 [facility] Comment on above: Order Comment: Speci men Type: BLOOD SPECIMEN Ordering Facility: [facility] Address: [address] [place] [address] Performed By: #### 2 4323-8, 3040-3 #### [facility] CLIA [id number] [address] [place] [address] [place] Lipase SerPl-cCncon 12-20-19 25 Lipase [Catalytic activity/Vol] 32 U/L Normal 16-61 [facility] Comment on above: Order Comment: Kettyi men Type: BLOOD SPECIMEN Ordering Facility: [facility] Address: [address] [place] [address] Performed By: #### 2 4323-8, 3040-3 #### [facility] CLIA [id number] [address] [place] [address] [place] XR CHEST 2V [...] tissues: Unremarkable. IMPRESSION: No acute radiographic abnormality. Photo Optics Technician: BABATUNDE Transcribe Date/Time: Dec 21 2024 4:06P Dictated by : JEAN-CLAUDE MANRIQUEZ MD This examination was interpreted and the report reviewed and electronically signed by: JEAN-CLAUDE MANRIQUEZ MD on Dec 21 2024 4:07PM EST [id number] Normal [facility] Basic Metabolic Profile (BMP )on 12-17-2024 BUN Normal 4-19 [facility] Comment on above: Result Comment: Canc elled via OM: Order cancelled - Patient discharged Performed By: #### L 100.0100, L500.2500 ####[facility] [address] [place], [address] BUN/CRE Normal 10-20 [facility] Comment on above: Result Comment: Canc elled via OM: Order cancelled - Patient discharged Performed By: #### L 100.0100, L500.2500 ####[facility] [address] [place], [address] Calcium Normal 7.6-11.0 [facility] Comment on above: Result Comment: Canc elled via OM: Order cancelled - Patient discharged Performed By: #### L 100.0100, L500.2500 ####[facility] [address] [place], [address] CL Normal 98-108 [facility] Comment on above: Result Comment: Canc elled via OM: Order cancelled - Patient discharged Performed By: #### L 100.0100, L500.2500 ####[facility] [address] [place], [address] CO2 Normal 21.0-32.0 [facility] Comment on above: Result Comment: Canc elled via OM: Order cancelled - Patient discharged Performed By: #### L 100.0100, L500.2500 ####[facility] [address] [place] [place], [address] CREAT,SERUM Normal 0.70-1.20 [facility] Comment on above: Result Comment: Canc elled via OM: Order cancelled - Patient discharged Performed By: #### L 100.0100, L500.2500 ####[facility] [address] [place], [address] eGFR Normal >60 [facility] Comment on above: Result Comment: Canc elled via OM: Order cancelled - Patient discharged Performed By: #### L 100.0100, L500.2500 ####[facility] [address] [place], [address] GAP Normal 5-15 [facility] Comment on above: Result Comment: Canc elled via OM: Order cancelled - Patient discharged Performed By: #### L 100.0100, L500.2500 ####[facility] [address] [place], [address] GLU Normal 70-99 [facility] Comment on above: Result Comment: Canc elled via OM: Order cancelled - Patient discharged Performed By: #### L 100.0100, L500.2500 ####[facility] [address] [place], [address] Potassium Normal 3.3-5.1 [facility] Comment on above: Result Comment: Canc elled via OM: Order cancelled - Patient discharged Performed By: #### L 100.0100, L500.2500 ####[facility] [address] [place], [address] Basic Metabolic Profile (BMP) Normal 133-145 [facility] Comment on above: Result Comment: Canc elled via OM: Order cancelled - Patient discharged Performed By: #### L 100.0100, L500.2500 ####[facility] [address] [place], [address] CBC W/Diff, Automatedon - Absolute Neut Normal 2.0-7.7 [facility] Comment on above: Result Comment: Canc elled via OM: Order cancelled - Patient discharged Performed By: #### L 100.0100, L500.2500 ####[facility] [address] [place], [address] HCT Normal 37-47 [facility] Comment on above: Result Comment: Canc elled via OM: Order cancelled - Patient discharged Performed By: #### L 100.0100, L500.2500 ####[facility] [address] [place], [address] HGB Normal 12.0-15.0 [facility] Comment on above: Result Comment: Canc elled via OM: Order cancelled - Patient discharged Performed By: #### L 100.0100, L500.2500 ####[facility] [address] [place], [address] MCH Normal 27.0-32.0 [facility] Comment on above: Result Comment: Canc elled via OM: Order cancelled - Patient discharged Performed By: #### L 100.0100, L500.2500 ####[facility] [address] [place], [address] MCHC Normal 32-36 [facility] Comment on above: Result Comment: Canc elled via OM: Order cancelled - Patient discharged Performed By: #### L 100.0100, L500.2500 ####[facility] [address] [place], [address] MCV Normal 81-99 [facility] Comment on above: Result Comment: Canc elled via OM: Order cancelled - Patient discharged Performed By: #### L 100.0100, L500.2500 ####[facility] [address] [place], [address] NEUT% Normal 47-70 [facility] Comment on above: Result Comment: Canc elled via OM: Order cancelled - Patient discharged Performed By: #### L 100.0100, L500.2500 ####[facility] [address] [place], [address] PLT Normal 150-450 [facility] Comment on above: Result Comment: Canc elled via OM: Order cancelled - Patient discharged Performed By: #### L 100.0100, L500.2500 ####[facility] [address] [place], [address] RBC Normal 4.2-5.4 [facility] Comment on above: Result Comment: Canc elled via OM: Order cancelled - Patient discharged Performed By: #### L 100.0100, L500.2500 ####[facility] [address] [place], [address] RDW CV Normal 11.6-14.6 [facility] Comment on above: Result Comment: Canc elled via OM: Order cancelled - Patient discharged Performed By: #### L 100.0100, L500.2500 ####[facility] [address] [place], [address] RDW SD Normal 35.1-43.9 [facility] Comment on above: Result Comment: Canc elled via OM: Order cancelled - Patient discharged Performed By: #### L 100.0100, L500.2500 ####[facility] [address] [place], [address] WBC Normal 4.4-11.0 [facility] Comment on above: Result Comment: Canc elled via OM: Order cancelled - Patient discharged Performed By: #### L 100.0100, L500.2500 ####[facility] [address] [place], [address] Basic Metabolic Profile (BMP )on 12-16-2024 BUN Normal 4-19 [facility] Comment on above: Result Comment: Canc elled via OM: Order cancelled - Patient discharged Performed By: #### L 500.2500, L100.0100 ####[facility] [address] [place], [address] BUN/CRE Normal 10-20 [facility] Comment on above: Result Comment: Canc elled via OM: Order cancelled - Patient discharged Performed By: #### L 500.2500, L100.0100 ####[facility] [address] [place], [address] Calcium Normal 7.6-11.0 [facility] Comment on above: Result Comment: Canc elled via OM: Order cancelled - Patient discharged Performed By: #### L 500.2500, L100.0100 ####[facility] [address] [place], [address] CL Normal 98-108 [facility] Comment on above: Result Comment: Canc elled via OM: Order cancelled - Patient discharged Performed By: #### L 500.2500, L100.0100 ####[facility] [address] [place], [address] CO2 Normal 21.0-32.0 [facility] Comment on above: Result Comment: Canc elled via OM: Order cancelled - Patient discharged Performed By: #### L 500.2500, L100.0100 ####[facility] [address] [place], [address] CREAT,SERUM Normal 0.70-1.20 [facility] Comment on above: Result Comment: Canc elled via OM: Order cancelled - Patient discharged Performed By: #### L 500.2500, L100.0100 ####[facility] [address] [place], [address] eGFR Normal >60 [facility] Comment on above: Result Comment: Canc elled via OM: Order cancelled - Patient discharged Performed By: #### L 500.2500, L100.0100 ####[facility] [address] [place], [address] GAP Normal 5-15 [facility] Comment on above: Result Comment: Canc elled via OM: Order cancelled - Patient discharged Performed By: #### L 500.2500, L100.0100 ####[facility] [address] [place], [address] GLU Normal 70-99 [facility] Comment on above: Result Comment: Canc elled via OM: Order cancelled - Patient discharged Performed By: #### L 500.2500, L100.0100 ####[facility] [address] [place], [address] Potassium Normal 3.3-5.1 [facility] Comment on above: Result Comment: Canc elled via OM: Order cancelled - Patient discharged Performed By: #### L 500.2500, L100.0100 ####[facility] [address] [place], [address] Basic Metabolic Profile (BMP) Normal 133-145 [facility] Comment on above: Result Comment: Canc elled via OM: Order cancelled - Patient discharged Performed By: #### L 500.2500, L100.0100 ####[facility] [address] [place], [address] CBC W/Diff, Automatedon 03-2 Absolute Neut Normal 2.0-7.7 [facility] Comment on above: Result Comment: Canc elled via OM: Order cancelled - Patient discharged Performed By: #### L 500.2500, L100.0100 ####[facility] [address] [place], [address] HCT Normal 37-47 [facility] Comment on above: Result Comment: Canc elled via OM: Order cancelled - Patient discharged Performed By: #### L 500.2500, L100.0100 ####[facility] [address] [place], [address] HGB Normal 12.0-15.0 [facility] Comment on above: Result Comment: Canc elled via OM: Order cancelled - Patient discharged Performed By: #### L 500.2500, L100.0100 ####[facility] [address] [place], [address] MCH Normal 27.0-32.0 [facility] Comment on above: Result Comment: Canc elled via OM: Order cancelled - Patient discharged Performed By: #### L 500.2500, L100.0100 ####[facility] [address] [place], [address] MCHC Normal 32-36 [facility] Comment on above: Result Comment: Canc elled via OM: Order cancelled - Patient discharged Performed By: #### L 500.2500, L100.0100 ####[facility] [address] [place], [address] MCV Normal 81-99 [facility] Comment on above: Result Comment: Canc elled via OM: Order cancelled - Patient discharged Performed By: #### L 500.2500, L100.0100 ####[facility] [address] [place], [address] NEUT% Normal 47-70 [facility] Comment on above: Result Comment: Canc elled via OM: Order cancelled - Patient discharged Performed By: #### L 500.2500, L100.0100 ####[facility] [address] [place], [address] PLT Normal 150-450 [facility] Comment on above: Result Comment: Canc elled via OM: Order cancelled - Patient discharged Performed By: #### L 500.2500, L100.0100 ####[facility] [address] [place], [address] RBC Normal 4.2-5.4 [facility] Comment on above: Result Comment: Canc elled via OM: Order cancelled - Patient discharged Performed By: #### L 500.2500, L100.0100 ####[facility] [address] [place], [address] RDW CV Normal 11.6-14.6 [facility] Comment on above: Result Comment: Canc elled via OM: Order cancelled - Patient discharged Performed By: #### L 500.2500, L100.0100 ####[facility] [address] [place], [address] RDW SD Normal 35.1-43.9 [facility] Comment on above: Result Comment: Canc elled via OM: Order cancelled - Patient discharged Performed By: #### L 500.2500, L100.0100 ####[facility] [address] [place], [address] WBC Normal 4.4-11.0 [facility] Comment on above: Result Comment: Canc elled via OM: Order cancelled - Patient discharged Performed By: #### L 500.2500, L100.0100 ####[facility] [address] [place], [address] Gastroenterology Visit Repor ton 12-16-2024 Gastroenterology Visit Report Normal [facility] Basic Metabolic Profile (BMP )on 12-15-2024 BUN Normal -19 [facility] Comment on above: Result Comment: Canc elled via OM: Order cancelled - Patient discharged Performed By: #### L 500.2500, L100.0100 ####[facility] [address] [place], [address] BUN/CRE Normal -20 [facility] Comment on above: Result Comment: Canc elled via OM: Order cancelled - Patient discharged Performed By: #### L 500.2500, L100.0100 ####[facility] [address] [place], [address] Calcium Normal 7.6-11.0 [facility] Comment on above: Result Comment: Canc elled via OM: Order cancelled - Patient discharged Performed By: #### L 500.2500, L100.0100 ####[facility] [address] [place], [address] CL Normal 98-108 [facility] Comment on above: Result Comment: Canc elled via OM: Order cancelled - Patient discharged Performed By: #### L 500.2500, L100.0100 ####[facility] [address] [place], [address] CO2 Normal 21.0-32.0 [facility] Comment on above: Result Comment: Canc elled via OM: Order cancelled - Patient discharged Performed By: #### L 500.2500, L100.0100 ####[facility] [address] [place], [address] CREAT,SERUM Normal 0.70-1.20 [facility] Comment on above: Result Comment: Canc elled via OM: Order cancelled - Patient discharged Performed By: #### L 500.2500, L100.0100 ####[facility] [address] [place], [address] eGFR Normal >60 [facility] Comment on above: Result Comment: Canc elled via OM: Order cancelled - Patient discharged Performed By: #### L 500.2500, L100.0100 ####[facility] [address] [place], [address] GAP Normal 5-15 [facility] Comment on above: Result Comment: Canc elled via OM: Order cancelled - Patient discharged Performed By: #### L 500.2500, L100.0100 ####[facility] [address] [place], [address] GLU Normal 70-99 [facility] Comment on above: Result Comment: Canc elled via OM: Order cancelled - Patient discharged Performed By: #### L 500.2500, L100.0100 ####[facility] [address] [place], [address] Potassium Normal 3.3-5.1 [facility] Comment on above: Result Comment: Canc elled via OM: Order cancelled - Patient discharged Performed By: #### L 500.2500, L100.0100 ####[facility] [address] [place], [address] Basic Metabolic Profile (BMP) Normal 133-145 [facility] Comment on above: Result Comment: Canc elled via OM: Order cancelled - Patient discharged Performed By: #### L 500.2500, L100.0100 ####[facility] [address] [place], [address] CBC W/Diff, Automatedon 11-27-2024 Absolute Neut Normal 2.0-7.7 [facility] Comment on above: Result Comment: Canc elled via OM: Order cancelled - Patient discharged Performed By: #### L 500.2500, L100.0100 ####[facility] [address] [place], [address] HCT Normal 37-47 [facility] Comment on above: Result Comment: Canc elled via OM: Order cancelled - Patient discharged Performed By: #### L 500.2500, L100.0100 ####[facility] [address] [place], [address] HGB Normal 12.0-15.0 [facility] Comment on above: Result Comment: Canc elled via OM: Order cancelled - Patient discharged Performed By: #### L 500.2500, L100.0100 ####[facility] [address] [place], [address] MCH Normal 27.0-32.0 [facility] Comment on above: Result Comment: Canc elled via OM: Order cancelled - Patient discharged Performed By: #### L 500.2500, L100.0100 ####[facility] [address] [place], [address] MCHC Normal 32-36 [facility] Comment on above: Result Comment: Canc elled via OM: Order cancelled - Patient discharged Performed By: #### L 500.2500, L100.0100 ####[facility] [address] [place], [address] MCV Normal 81-99 [facility] Comment on above: Result Comment: Canc elled via OM: Order cancelled - Patient discharged Performed By: #### L 500.2500, L100.0100 ####[facility] [address] [place], [address] NEUT% Normal 47-70 [facility] Comment on above: Result Comment: Canc elled via OM: Order cancelled - Patient discharged Performed By: #### L 500.2500, L100.0100 ####[facility] [address] [place], [address] PLT Normal 150-450 [facility] Comment on above: Result Comment: Canc elled via OM: Order cancelled - Patient discharged Performed By: #### L 500.2500, L100.0100 ####[facility] [address] [place], [address] RBC Normal 4.2-5.4 [facility] Comment on above: Result Comment: Canc elled via OM: Order cancelled - Patient discharged Performed By: #### L 500.2500, L100.0100 ####[facility] [address] [place], [address] RDW CV Normal 11.6-14.6 [facility] Comment on above: Result Comment: Canc elled via OM: Order cancelled - Patient discharged Performed By: #### L 500.2500, L100.0100 ####[facility] [address] [place], [address] RDW SD Normal 35.1-43.9 [facility] Comment on above: Result Comment: Canc elled via OM: Order cancelled - Patient discharged Performed By: #### L 500.2500, L100.0100 ####[facility] [address] [place], [address] WBC Normal 4.4-11.0 [facility] Comment on above: Result Comment: Canc elled via OM: Order cancelled - Patient discharged Performed By: #### L 500.2500, L100.0100 ####[facility] [address] [place], [address] Basic Metabolic Profile (BMP )on 12-14-2024 BUN Normal 4-19 [facility] Comment on above: Result Comment: Canc elled via OM: Order cancelled - Patient discharged Performed By: #### L 100.0100, L500.2500 ####[facility] [address] [place], [address] BUN/CRE Normal 10-20 [facility] Comment on above: Result Comment: Canc elled via OM: Order cancelled - Patient discharged Performed By: #### L 100.0100, L500.2500 ####[facility] [address] [place], [address] Calcium Normal 7.6-11.0 [facility] Comment on above: Result Comment: Canc elled via OM: Order cancelled - Patient discharged Performed By: #### L 100.0100, L500.2500 ####[facility] [address] [place], [address] CL Normal 98-108 [facility] Comment on above: Result Comment: Canc elled via OM: Order cancelled - Patient discharged Performed By: #### L 100.0100, L500.2500 ####[facility] [address] [place], [address] CO2 Normal 21.0-32.0 [facility] Comment on above: Result Comment: Canc elled via OM: Order cancelled - Patient discharged Performed By: #### L 100.0100, L500.2500 ####[facility] [address] [place], [address] CREAT,SERUM Normal 0.70-1.20 [facility] Comment on above: Result Comment: Canc elled via OM: Order cancelled - Patient discharged Performed By: #### L 100.0100, L500.2500 ####[facility] [address] [place], [address] eGFR Normal >60 [facility] Comment on above: Result Comment: Canc elled via OM: Order cancelled - Patient discharged Performed By: #### L 100.0100, L500.2500 ####[facility] [address] [place], [address] GAP Normal 5-15 [facility] Comment on above: Result Comment: Canc elled via OM: Order cancelled - Patient discharged Performed By: #### L 100.0100, L500.2500 ####[facility] [address] [place], [address] GLU Normal 70-99 [facility] Comment on above: Result Comment: Canc elled via OM: Order cancelled - Patient discharged Performed By: #### L 100.0100, L500.2500 ####[facility] [address] [place], [address] Potassium Normal 3.3-5.1 [facility] Comment on above: Result Comment: Canc elled via OM: Order cancelled - Patient discharged Performed By: #### L 100.0100, L500.2500 ####[facility] [address] [place], [address] Basic Metabolic Profile (BMP) Normal 133-145 [facility] Comment on above: Result Comment: Canc elled via OM: Order cancelled - Patient discharged Performed By: #### L 100.0100, L500.2500 ####[facility] [address] [place], [address] CBC W/Diff, Automatedon 03- Absolute Neut Normal 2.0-7.7 [facility] Comment on above: Result Comment: Canc elled via OM: Order cancelled - Patient discharged Performed By: #### L 100.0100, L500.2500 ####[facility] [address] [place], [address] HCT Normal 37-47 [facility] Comment on above: Result Comment: Canc elled via OM: Order cancelled - Patient discharged Performed By: #### L 100.0100, L500.2500 ####[facility] [address] [place], [address] HGB Normal 12.0-15.0 [facility] Comment on above: Result Comment: Canc elled via OM: Order cancelled - Patient discharged Performed By: #### L 100.0100, L500.2500 ####[facility] [address] [place], [address] MCH Normal 27.0-32.0 [facility] Comment on above: Result Comment: Canc elled via OM: Order cancelled - Patient discharged Performed By: #### L 100.0100, L500.2500 ####[facility] [address] [place], [address] MCHC Normal 32-36 [facility] Comment on above: Result Comment: Canc elled via OM: Order cancelled - Patient discharged Performed By: #### L 100.0100, L500.2500 ####[facility] [address] [place], [address] MCV Normal 81-99 [facility] Comment on above: Result Comment: Canc elled via OM: Order cancelled - Patient discharged Performed By: #### L 100.0100, L500.2500 ####[facility] [address] [place], [address] NEUT% Normal 47-70 [facility] Comment on above: Result Comment: Canc elled via OM: Order cancelled - Patient discharged Performed By: #### L 100.0100, L500.2500 ####[facility] [address] [place], [address] PLT Normal 150-450 [facility] Comment on above: Result Comment: Canc elled via OM: Order cancelled - Patient discharged Performed By: #### L 100.0100, L500.2500 ####[facility] [address] [place], [address] RBC Normal 4.2-5.4 [facility] Comment on above: Result Comment: Canc elled via OM: Order cancelled - Patient discharged Performed By: #### L 100.0100, L500.2500 ####[facility] [address] [place], [address] RDW CV Normal 11.6-14.6 [facility] Comment on above: Result Comment: Canc elled via OM: Order cancelled - Patient discharged Performed By: #### L 100.0100, L500.2500 ####[facility] [address] [place], [address] RDW SD Normal 35.1-43.9 [facility] Comment on above: Result Comment: Canc elled via OM: Order cancelled - Patient discharged Performed By: #### L 100.0100, L500.2500 ####[facility] [address] [place], [address] WBC Normal 4.4-11.0 [facility] Comment on above: Result Comment: Canc elled via OM: Order cancelled - Patient discharged Performed By: #### L 100.0100, L500.2500 ####[facility] [address] [place], [address] Basic Metabolic Profile (BMP )on 12-13-2024 BUN Normal 4-19 [facility] Comment on above: Result Comment: Canc elled via OM: Order cancelled - Patient discharged Performed By: #### L 100.0100, L500.2500 ####[facility] [address] [place], [address] BUN/CRE Normal 10-20 [facility] Comment on above: Result Comment: Canc elled via OM: Order cancelled - Patient discharged Performed By: #### L 100.0100, L500.2500 ####[facility] [address] [place], [address] Calcium Normal 7.6-11.0 [facility] Comment on above: Result Comment: Canc elled via OM: Order cancelled - Patient discharged Performed By: #### L 100.0100, L500.2500 ####[facility] [address] [place], [address] CL Normal 98-108 [facility] Comment on above: Result Comment: Canc elled via OM: Order cancelled - Patient discharged Performed By: #### L 100.0100, L500.2500 ####[facility] [address] [place], [address] CO2 Normal 21.0-32.0 [facility] Comment on above: Result Comment: Canc elled via OM: Order cancelled - Patient discharged Performed By: #### L 100.0100, L500.2500 ####[facility] [address] [place], [address] CREAT,SERUM Normal 0.70-1.20 [facility] Comment on above: Result Comment: Canc elled via OM: Order cancelled - Patient discharged Performed By: #### L 100.0100, L500.2500 ####[facility] [address] [place], [address] eGFR Normal >60 [facility] Comment on above: Result Comment: Canc elled via OM: Order cancelled - Patient discharged Performed By: #### L 100.0100, L500.2500 ####[facility] [address] [place], [address] GAP Normal 5-15 [facility] [facility] Comment on above: Result Comment: Canc elled via OM: Order cancelled - Patient discharged Performed By: #### L 100.0100, L500.2500 ####[facility] [address] [place], [address] GLU Normal 70-99 [facility] Comment on above: Result Comment: Canc elled via OM: Order cancelled - Patient discharged Performed By: #### L 100.0100, L500.2500 ####[facility] [address], [address] Potassium Normal 3.3-5.1 [facility] Comment on above: Result Comment: Canc elled via OM: Order cancelled - Patient discharged Performed By: #### L 100.0100, L500.2500 ####[facility] [address] [place], [address] Basic Metabolic Profile (BMP) Normal 133-145 [facility] Comment on above: Result Comment: Canc elled via OM: Order cancelled - Patient discharged Performed By: #### L 100.0100, L500.2500 ####[facility] [address] [place], [address] CBC W/Diff, Automatedon - Absolute Neut Normal 2.0-7.7 [facility] Comment on above: Result Comment: Canc elled via OM: Order cancelled - Patient discharged Performed By: #### L 100.0100, L500.2500 ####[facility] [address] [place], [address] HCT Normal 37-47 [facility] Comment on above: Result Comment: Canc elled via OM: Order cancelled - Patient discharged Performed By: #### L 100.0100, L500.2500 ####[facility] [address] [place], [address] HGB Normal 12.0-15.0 [facility] Comment on above: Result Comment: Canc elled via OM: Order cancelled - Patient discharged Performed By: #### L 100.0100, L500.2500 ####[facility] [address] [place], [address] MCH Normal 27.0-32.0 [facility] Comment on above: Result Comment: Canc elled via OM: Order cancelled - Patient discharged Performed By: #### L 100.0100, L500.2500 ####[facility] [address] [place], [address] MCHC Normal 32-36 [facility] Comment on above: Result Comment: Canc elled via OM: Order cancelled - Patient discharged Performed By: #### L 100.0100, L500.2500 ####[facility] [address] [place], [address] MCV Normal 81-99 [facility] Comment on above: Result Comment: Canc elled via OM: Order cancelled - Patient discharged Performed By: #### L 100.0100, L500.2500 ####[facility] [address] [place], [address] NEUT% Normal 47-70 [facility] Comment on above: Result Comment: Canc elled via OM: Order cancelled - Patient discharged Performed By: #### L 100.0100, L500.2500 ####[facility] [address] [place], [address] PLT Normal 150-450 [facility] Comment on above: Result Comment: Canc elled via OM: Order cancelled - Patient discharged Performed By: #### L 100.0100, L500.2500 ####[facility] [address] [place], [address] RBC Normal 4.2-5.4 [facility] Comment on above: Result Comment: Canc elled via OM: Order cancelled - Patient discharged Performed By: #### L 100.0100, L500.2500 ####[facility] [address] [place], [address] RDW CV Normal 11.6-14.6 [facility] Comment on above: Result Comment: Canc elled via OM: Order cancelled - Patient discharged Performed By: #### L 100.0100, L500.2500 ####[facility] [address] [place], [address] RDW SD Normal 35.1-43.9 [facility] Comment on above: Result Comment: Canc elled via OM: Order cancelled - Patient discharged Performed By: #### L 100.0100, L500.2500 ####[facility] [address] [place], [address] WBC Normal 4.4-11.0 [facility] Comment on above: Result Comment: Canc elled via OM: Order cancelled - Patient discharged Performed By: #### L 100.0100, L500.2500 ####[facility] [address] [place], [address] Respiratory Cultureon 2024 RESPC Mixed normal respira tory benjie. No Streptococcus pneumoniae, beta-hemolytic Streptococcus or Staphylococcus aureus isolated. Normal [facility] Comment on above: Performed By: #### M 100.2000, M100.2400 ####[facility] [address] [place], [address] Absolute lymphocyte countOrd ered By: Anastacia Bonilla on 12-12-2024 Lymphocytes Auto (Unsp spec) [#/Vol] 4.36 10*3/uL 0.83-4.51 [facility] Absolute neutrophil countOrd ered By: Anastacia Bonilla on 12-12-2024 Neutrophils (Bld) [#/Vol] 17.2 10*3/uL High 2.0-7.7 [facility] Absolute neutrophil count 17.2 X10^3/uL High 2.0-7.7 [facility] Anion gap [Moles/Vol]Ordered By: Anastaciagerri Bonilla on 12-12-2024 Anion gap in Serum or Plasma 8 02-09 [facility] Anion gap in Serum or Plasma Ordered By: Anastacia Bonilla on 12-12-2024 Anion gap [Moles/Vol] 8 mmol/L 02-09 [facility] BUN/creatinine ratioOrdered By: Anastaciagerri Bonilla on 12-12-2024 Urea nitrogen/Creatinine [Mass ratio] 32.0 mg/mg High 07-17 [facility] BUN/creatinine ratio 32.0 RATIO High 07-17 [facility] Band form neutrophils/100 WB C (Bld)Ordered By: Anastacia Bonilla on 12-12-2024 Blood band neutrophil count as percentage of total leukocytes 2 % 0- [facility] Basic Metabolic Profile (BMP )on 12-12-2024 BUN/CRE 32.0 RATIO High 07-17 [facility] Comment on above: Performed By: #### L 500.2500, L100.0100 ####[facility] [address] [place], [address] Calcium [Mass/Vol] 8.9 mg/dL Normal 7.6-11.0 [facility] Comment on above: Performed By: #### L 500.2500, L100.0100 ####[facility] [address] [place], [address] Chloride [Moles/Vol] 95 mmol/L Low 98-108 [facility] Comment on above: Performed By: #### L 500.2500, L100.0100 ####[facility] [address] [place], [address] CO2 [Moles/Vol] 34.4 mmol/L High 21.0-32.0 [facility] Comment on above: Performed By: #### L 500.2500, L100.0100 ####[facility] [address] [place], [address] Creatinine [Mass/Vol] 0.77 mg/dL Normal 0.70-1.20 [facility] Comment on above: Performed By: #### L 500.2500, L100.0100 ####[facility] [address] [place], [address] ECRCL 63.47 ml/min Normal 50-250 [facility] Comment on above: Performed By: #### L 500.2500, L100.0100 ####[facility] [address] [place], [address] GAP 8 Normal 5-15 [facility] Comment on above: Performed By: #### L 500.2500, L100.0100 ####[facility] [address] [place], [address] GFR/1.73 sq M.predicted among non-blacks MDRD (S/P/Bld) [Vol rate/Area] 87 mL/min/{1.73_m2} Normal >60 [facility] Comment on above: Result Comment: mL/m in/1.73m2 CKD-EPI Creatinine Equation (2020) Performed By: #### L 500.2500, L100.0100 ####[facility] [address] [place], [address] Glucose [Mass/Vol] 80 mg/dL Normal 70-99 [facility] Comment on above: Performed By: #### L 500.2500, L100.0100 ####[facility] [address] [place], [address] Potassium [Moles/Vol] 4.1 mmol/L Normal 3.3-5.1 [facility] Comment on above: Performed By: #### L 500.2500, L100.0100 ####[facility] [address] [place], [address] Sodium [Moles/Vol] 137 mmol/L Normal 133-145 [facility] Comment on above: Performed By: #### L 500.2500, L100.0100 ####[facility] [address] [place], [address] Urea nitrogen [Mass/Vol] 25 mg/dL High 4-19 [facility] Comment on above: Performed By: #### L 500.2500, L100.0100 ####[facility] [address] [facility] [place], [address] Blood band neutrophil count as percentage of total leukocytesOrdered By: Anastacia Bonilla on 12-12-2024 Band form neutrophils/100 WBC (Bld) 2 % 0-5 [facility] Blood lymphocytes/100 leukoc ytesOrdered By: Anastacia Bonilla on 12-12-2024 Lymphocytes/100 WBC (Bld) 17 % Low 19-41 [facility] Blood manual differential co mment interpretation (narrative result)Ordered By: Anastacia Bonilla on 12-12-2024 Manual differential comment Geovany (Bld) [Interp] SCANNED [facility] Blood metamyelocytes/100 scott kocytesOrdered By: Anastacia Bonilla on 12-12-2024 Metamyelocytes/100 WBC (Bld) 1 % 0-1 [facility] Blood monocytes/100 leukocyt esOrdered By: Anastacia Bonilla on 12-12-2024 Monocytes/100 WBC (Bld) 5 % 0-10 [facility] Blood segmented neutrophils/ 100 leukocytesOrdered By: Anastacia Bonilla on 12-12-2024 Segmented neutrophils/100 WBC (Bld) 65 % 47-70 [facility] Calcium [Mass/Vol]Ordered By : Anastacia Bonilla on 12-12-2024 Serum or plasma calcium measurement (mass/volume) 8.9 mg/dL 7.6-11.0 [facility] Carbon dioxide, total [Moles /volume] in Central venous bloodOrdered By: Anastacia Bonilla on 12-12-2024 CO2 [Moles/Vol] 34.4 mmol/L High 21.0-32.0 [facility] Carbon dioxide, total [Moles/volume] in Central venous blood 34.4 mmol/L High 21.0-32.0 [facility] Cells counted Molgen (Bld/Ti ss) [#]Ordered By: Anastacia Bonilla on 12-12-2024 Differential Total Cells Counted 100 MANUAL DIFF [facility] Total cell count 100 MANUAL DIFF [facility] Chloride assayOrdered By: Emily Bonilla on 12-12-2024 Chloride [Moles/Vol] 95 mmol/L Low 98-108 [facility] Chloride assay 95 mmol/L Low 98-108 [facility] Creatinine [Mass/Vol]Ordered By: Anastacia Bonilla on 12-12-2024 Serum creatinine measurement (mass/volume) 0.77 mg/dL 0.70-1.20 [facility] Discharge Instructionon 11-26 Discharge Instruction Normal [facility] EGD Reporton 12-12-2024 EGD Report Normal [facility] Erythrocyte distribution wid th (RBC) [Ratio]Ordered By: Anastacia Bonilla on 12-12-2024 Erythrocyte distribution width ratio 14.6 % 11.6-14.6 [facility] Erythrocyte distribution wid th ratioOrdered By: Anastacia Bonilla on 12-12-2024 Erythrocyte distribution width (RBC) [Ratio] 14.6 % 11.6-14.6 [facility] Erythrocyte distribution wid th standard deviationOrdered By: Anastacia Bonilla on 12-12-2024 Erythrocyte distribution width (RBC) [Entitic vol] 46.5 fL High 35.1-43.9 [facility] Erythrocyte distribution width (RBC) [Ratio] 46.5 fl High 35.1-43.9 [facility] Erythrocyte distribution width standard deviation 46.5 fl High 35.1-43.9 [facility] Estimation of creatinine binu aranceOrdered By: Anastacia Bonilla on 12-12-2024 Estimated Creatinine Clearance Calc 63.47 ml/min 50-250 [facility] Estimation of creatinine clearance 63.47 ml/min 50-250 [facility] GFR/1.73 sq M.predicted gregory g non-blacks MDRD (S/P/Bld) [Vol rate/Area]Ordered By: Anastacia Bonilla on 12-12-2024 Estimated GFR (MDRD) Non-Af Amer 87 >60 [facility] Comment on above: mL/min/1.73m2 CKD-EP I Creatinine Equation (2020) Glomerular filtration rate (GFR) estimation/1.73 sq m using serum, plasma, or whole b 87 >60 [facility] Glomerular filtration rate ( GFR) estimation/1.73 sq m using serum, plasma, or whole bOrdered By: Anastacia Bonilla on 12-12-2024 GFR/1.73 sq M.predicted among non-blacks MDRD (S/P/Bld) [Vol rate/Area] 87 mL/min/{1.73_m2} >60 [facility] Glucose [Mass/Vol]Ordered By : Anastacia Bonilla on 12-12-2024 Serum glucose measurement (mass/volume) 80 mg/dL 70-99 [facility] Hematocrit Auto (Bld) [Volum e fraction]Ordered By: Anastacia Bonilla on 12-12-2024 Hematocrit (Bld) [Volume fraction] 44.4 % 37-47 [facility] Automated blood hematocrit (percentage) 44.4 % 37-47 [facility] Hemoglobin measurementOrdere d By: Anastacia Bonilla on 12-12-2024 Hemoglobin (Bld) [Mass/Vol] 13.7 g/dL 12.0-15.0 [facility] Hemoglobin measurement 13.7 g/dL 12.0-15.0 [facility] Lymphocytes Auto (Unsp spec) [#/Vol]Ordered By: Anastacia Bonilla on 12-12-2024 Lymphocytes (Bld) [#/Vol] 4.36 10*3/uL 0.83-4.51 [facility] Absolute lymphocyte count 4.36 X10^3/uL 0.83-4.51 [facility] Lymphocytes/100 WBC (Bld)Ord ered By: Anastacia Bonilla on 12-12-2024 Blood lymphocytes/100 leukocytes 17 % Low 19-41 [facility] MCV (RBC) [Entitic vol]Order ed By: Anastacia Bonilla on 12-12-2024 MCV (mean corpuscular volume) determination 86.2 fL 81-99 [facility] MCV (mean corpuscular volume ) determinationOrdered By: Anastacia Bonilla on 12-12-2024 MCV (RBC) [Entitic vol] 86.2 fL 81-99 [facility] MR/POSTOP.ANEon 12-12-2024 MR/POSTOP.ANE Normal [facility] MR/[id number] 12-12-2024 MR/POSTOPAN2 Normal [facility] Manual differential comment Geovany (Bld) [Interp]Ordered By: Anastacia Bonilla on 12-12-2024 Differential Comment SCANNED [facility] Comment on above: LYMPHOCYTOSIS PRESEN TMONOCYTOSIS PRESENT Blood manual differential comment interpretation (narrative result) SCANNED [facility] Mean corpuscular hemoglobin (MCH) determinationOrdered By: Anastacia Bonilla on 12-12-2024 MCH (RBC) [Entitic mass] 26.6 pg Low 27.0-32.0 [facility] Mean corpuscular hemoglobin (MCH) determination 26.6 pg Low 27.0-32.0 [facility] Mean corpuscular hemoglobin concentration (MCHC) determinationOrdered By: Anastacia Bonlila on 12-12-2024 MCHC (RBC) [Mass/Vol] 30.9 g/dL Low 32-36 [facility] Mean corpuscular hemoglobin concentration (MCHC) determination 30.9 g/dL Low 32-36 [facility] Mean platelet volume determi nationOrdered By: Anastacia Bonilla on 12-12-2024 Platelet mean volume (Bld) [Entitic vol] 10.1 fL 6.2-12.0 [facility] Mean platelet volume determination 10.1 fl 6.2-12.0 [facility] Metamyelocytes/100 WBC (Bld) Ordered By: Anastacia Bonilla on 12-12-2024 Blood metamyelocytes/100 leukocytes 1 % 0-1 [facility] Monocytes/100 WBC (Bld)Order ed By: Anastacia Bonilla on 12-12-2024 Blood monocytes/100 leukocytes 5 % 0-10 [facility] Myelocyte %Ordered By: Anastacia Bonilla on 12-12-2024 Myelocytes/100 WBC (Bld) 7 % High 0-0 [facility] Myelocyte % 7 % High 0-0 [facility] Neutrophil percentageOrdered By: Anastacia Bonilla on 12-12-2024 Neutrophils (%) (Auto) Not Reportable [facility] Neutrophil percentage Not Reportable [facility] Pathologist review Geovany (Unsp spec) [Interp]Ordered By: Anastacia Bonilla on 12-12-2024 Differential Pathologist's Review January [facility] Review by pathologist January [facility] Review by pathologist N/A [facility] Platelet countOrdered By: Emily Bonilla on 12-12-2024 Platelets (Bld) [#/Vol] 345 10*3/uL 150-450 [facility] Platelet count 345 K/mm3 150-450 [facility] Potassium (Unsp spec) [Mass/ Vol]Ordered By: Anastacia Bonilla on 12-12-2024 Potassium [Moles/Vol] 4.1 mmol/L 3.3-5.1 [facility] Potassium measurement (mass/volume) 4.1 mmol/L 3.3-5.1 [facility] Potassium measurement (mass/ volume)Ordered By: Anastacia Bonilla on 12-12-2024 Potassium (Unsp spec) [Mass/Vol] 4.1 mmol/L 3.3-5.1 [facility] RBC Auto (Bld) [#/Vol]Ordere d By: Anastacia Bonilla on 12-12-2024 RBC (Bld) [#/Vol] 5.15 10*6/uL 4.2-5.4 [facility] Automated blood erythrocyte count 5.15 M/mm3 4.2-5.4 [facility] Review by pathologistOrdered By: Anastacia Bonilla on 12-12-2024 Pathologist review Geovany (Unsp spec) [Interp] N/A [facility] Segmented neutrophils/100 WB C (Bld)Ordered By: Anastacia Bonilla on 12-12-2024 Neutrophils/100 WBC (Bld) 65 % 47-70 [facility] Blood segmented neutrophils/100 leukocytes 65 % 47-70 [facility] Serum creatinine measurement (mass/volume)Ordered By: Anastacia Bonilla on 12-12-2024 Creatinine [Mass/Vol] 0.77 mg/dL 0.70-1.20 [facility] Serum glucose measurement (m ass/volume)Ordered By: Anastacia Bonilla on 12-12-2024 Glucose [Mass/Vol] 80 mg/dL 70-99 [facility] Serum or plasma calcium esthela urement (mass/volume)Ordered By: Anastacia Bonilla on 12-12-2024 Calcium [Mass/Vol] 8.9 mg/dL 7.6-11.0 [facility] Serum or plasma urea nitroge n measurement (mass/volume)Ordered By: Anastacia Bonilla on 12-12-2024 Urea nitrogen [Mass/Vol] 25 mg/dL High 01-14 [facility] Sodium levelOrdered By: Anastacia Bonilla on 12-12-2024 Sodium [Moles/Vol] 137 mmol/L 133-145 [facility] Sodium level 137 mmol/L 133-145 [facility] Total cell countOrdered By: Anastacia Bonilla on 12-12-2024 Cells counted Molgen (Bld/Tiss) [#] 100 MANUAL DIFF [facility] Urea nitrogen [Mass/Vol]Orde red By: Anastacia Bonilla on 12-12-2024 Serum or plasma urea nitrogen measurement (mass/volume) 25 mg/dL High 01-14 [facility] White blood cell (WBC) count Ordered By: Anastacia Bonilla on 12-12-2024 WBC (Bld) [#/Vol] 25.7 10*3/uL High 4.4-11.0 [facility] White blood cell (WBC) count 25.7 K/mm3 High 4.4-11.0 [facility] Basic Metabolic Profile (BMP )on 12-11-2024 BUN/CRE 36.7 RATIO High 10-20 [facility] Comment on above: Performed By: #### L 100.0100, L500.2500 ####[facility] [address] [place], [address] Calcium [Mass/Vol] 9.0 mg/dL Normal 7.6-11.0 [facility] Comment on above: Performed By: #### L 100.0100, L500.2500 ####[facility] [address] [place], [address] Chloride [Moles/Vol] 96 mmol/L Low 98-108 [facility] Comment on above: Performed By: #### L 100.0100, L500.2500 ####[facility] [address] [place], [address] CO2 [Moles/Vol] 27.6 mmol/L Normal 21.0-32.0 [facility] Comment on above: Performed By: #### L 100.0100, L500.2500 ####[facility] [address] [place], [address] Creatinine [Mass/Vol] 0.79 mg/dL Normal 0.70-1.20 [facility] Comment on above: Performed By: #### L 100.0100, L500.2500 ####[facility] [address] [place], [address] ECRCL 61.86 ml/min Normal 50-250 [facility] Comment on above: Performed By: #### L 100.0100, L500.2500 ####[facility] [address] [place], [address] GAP 13 Normal 5-15 [facility] Comment on above: Performed By: #### L 100.0100, L500.2500 ####[facility] [address] [place], [address] GFR/1.73 sq M.predicted among non-blacks MDRD (S/P/Bld) [Vol rate/Area] 85 mL/min/{1.73_m2} Normal >60 [facility] Comment on above: Result Comment: mL/m in/1.73m2 CKD-EPI Creatinine Equation (2020) Performed By: #### L 100.0100, L500.2500 ####[facility] [address] [place], [address] Glucose [Mass/Vol] 79 mg/dL Normal 70-99 [facility] Comment on above: Performed By: #### L 100.0100, L500.2500 ####[facility] [address] [place], [address] Potassium [Moles/Vol] 4.4 mmol/L Normal 3.3-5.1 [facility] Comment on above: Performed By: #### L 100.0100, L500.2500 ####[facility] [address] [place], [address] Sodium [Moles/Vol] 137 mmol/L Normal 133-145 [facility] Comment on above: Performed By: #### L 100.0100, L500.2500 ####[facility] [address] [place], [address] Urea nitrogen [Mass/Vol] 29 mg/dL High 4-19 [facility] Comment on above: Performed By: #### L 100.0100, L500.2500 ####[facility] [address] [place], [address] Gram Stainon 12-11-2024 GS Acceptable Specimen? Yes (<25 Epithelial cells per/lpf) Gram Stain 1+ Gram positive cocci 1+ Epithelial cells No White Blood Cells Normal [facility] Comment on above: Performed By: #### M 100.2000, M100.2400 ####[facility] [address] [place], [address] Laboratory - Hematology and Cell countsOrdered By: Anastacia Bonilla on 12-11-2024 Anisocytosis Ql (Bld) 1+ [facility] Microcytosis evaluation pane lOrdered By: Anastacia Bonilla on 12-11-2024 Microcytosis 1+ [facility] Microcytosis evaluation panel 1+ [facility] Ovalocyte detectionOrdered B y: Anastacia Bonilla on 12-11-2024 Ovalocytes LM Ql (Bld) 1+ [facility] Ovalocytes LM Ql (Bld)Ordere d By: Anastacia Bonilla on 12-11-2024 Ovalocytes 1+ [facility] Platelet estimateOrdered By: Anastacia Bonilla on 12-11-2024 Platelets LM Ql (Bld) ADEQUATE ADEQ [facility] Platelets LM Ql (Bld)Ordered By: Anastacia Chad on 12-11-2024 Platelet Estimate ADEQUATE ADEQ [facility] Platelet estimate [facility]ATE [facility] Basic Metabolic Profile (BMP )on 12-10-2024 BUN/CRE 41.3 RATIO High 10-20 [facility] Comment on above: Performed By: #### L 100.0100, L500.2500 ####[facility] [address] [place], [address] Calcium [Mass/Vol] 9.5 mg/dL Normal 7.6-11.0 [facility] Comment on above: Performed By: #### L 100.0100, L500.2500 ####[facility] [address] [place], [address] Chloride [Moles/Vol] 97 mmol/L Low 98-108 [facility] Comment on above: Performed By: #### L 100.0100, L500.2500 ####[facility] [address] [place], [address] CO2 [Moles/Vol] 28.4 mmol/L Normal 21.0-32.0 [facility] Comment on above: Performed By: #### L 100.0100, L500.2500 ####[facility] [address] [place], [address] Creatinine [Mass/Vol] 0.82 mg/dL Normal 0.70-1.20 [facility] Comment on above: Performed By: #### L 100.0100, L500.2500 ####[facility] [address] [place], [address] ECRCL 59.60 ml/min Normal 50-250 [facility] Comment on above: Performed By: #### L 100.0100, L500.2500 ####[facility] [address] [place], [address] GAP 11 Normal 5-15 [facility] Comment on above: Performed By: #### L 100.0100, L500.2500 ####[facility] [address] [place], [address] GFR/1.73 sq M.predicted among non-blacks MDRD (S/P/Bld) [Vol rate/Area] 81 mL/min/{1.73_m2} Normal >60 [facility] Comment on above: Result Comment: mL/m in/1.73m2 CKD-EPI Creatinine Equation (2020) Performed By: #### L 100.0100, L500.2500 ####[facility] [address] [place], [address] Glucose [Mass/Vol] 157 mg/dL High 70-99 [facility] Comment on above: Performed By: #### L 100.0100, L500.2500 ####[facility] [address] [place], [address] Potassium [Moles/Vol] 5.2 mmol/L High 3.3-5.1 [facility] Comment on above: Performed By: #### L 100.0100, L500.2500 ####[facility] [address] [place], [address] Sodium [Moles/Vol] 136 mmol/L Normal 133-145 [facility] Comment on above: Performed By: #### L 100.0100, L500.2500 ####[facility] [address] [place], [address] Urea nitrogen [Mass/Vol] 34 mg/dL High 4-19 [facility] Comment on above: Performed By: #### L 100.0100, L500.2500 ####[facility] [address] [place], [address] Blood eosinophils/100 leukoc ytesOrdered By: Anastacia Bonilla on 12-10-2024 Eosinophils/100 WBC (Bld) 1 % 0-5 [facility] Eosinophils/100 WBC (Bld)Ord ered By: Anastacia Waltersroberth on 12-10-2024 Blood eosinophils/100 leukocytes 1 % 0-5 [facility] Gram stainOrdered By: Ever Aguayo on 12-10-2024 Microscopic observation Gram stain Nom (Unsp spec) [facility] Microbial respiratory cultur eOrdered By: Aleta Aguayo on 12-10-2024 Microorganism identified Cx Nom (Unsp spec) or Staphylococcus aureus isolated. [facility] Microorganism identified Cx Nom (Unsp spec)Ordered By: Aleta Aguayo on 12-10-2024 Microbial respiratory culture or Staphylococcus aureus isolated. [facility] Platelet morphologyOrdered B y: Anastacia Waltersroberth on 12-10-2024 Platelet morphology finding Nom (Bld) G [facility] Platelet morphology finding Nom (Bld)Ordered By: Anastacia Bonilla on 12-10-2024 Platelet Morphology Comment G [facility] Platelet morphology G [facility] Basic Metabolic Profile (BMP )on 12-09-2024 BUN/CRE 40.8 RATIO High 10-20 [facility] Comment on above: Performed By: #### L 500.2500 ####[facility] [address], [address] Calcium [Mass/Vol] 9.8 mg/dL Normal 7.6-11.0 [facility] Comment on above: Performed By: #### L 500.2500 ####[facility] [address] [place], [address] Chloride [Moles/Vol] 96 mmol/L Low 98-108 [facility] Comment on above: Performed By: #### L 500.2500 ####[facility] [address] [place], [address] CO2 [Moles/Vol] 27.3 mmol/L Normal 21.0-32.0 [facility] Comment on above: Performed By: #### L 500.2500 ####[facility] [address] [place], [address] Creatinine [Mass/Vol] 0.85 mg/dL Normal 0.70-1.20 [facility] Comment on above: Performed By: #### L 500.2500 ####[facility] [address] [place], [address] ECRCL 57.49 ml/min Normal 50-250 [facility] Comment on above: Performed By: #### L 500.2500 ####[facility] [address] [place], [address] GAP 13 Normal 5-15 [facility] Comment on above: Performed By: #### L 500.2500 ####[facility] [address] [place], [address] GFR/1.73 sq M.predicted among non-blacks MDRD (S/P/Bld) [Vol rate/Area] 78 mL/min/{1.73_m2} Normal >60 [facility] Comment on above: Result Comment: mL/m in/1.73m2 CKD-EPI Creatinine Equation (2020) Performed By: #### L 500.2500 ####[facility] [address] [place], [address] Glucose [Mass/Vol] 176 mg/dL High 70-99 [facility] Comment on above: Performed By: #### L 500.2500 ####[facility] [address] [place], [address] Potassium [Moles/Vol] 5.0 mmol/L Normal 3.3-5.1 [facility] Comment on above: Performed By: #### L 500.2500 ####[facility] [address] [place], [address] Sodium [Moles/Vol] 135 mmol/L Normal 133-145 [facility] Comment on above: Performed By: #### L 500.2500 ####[facility] [address] [place], [address] Urea nitrogen [Mass/Vol] 35 mg/dL High 4-19 [facility] Comment on above: Performed By: #### L 500.2500 ####[facility] [address] [place], [address] Erythrocyte morphology asses smentOrdered By: Gonzalo Sebastian on 12-09-2024 RBC morphology finding Nom (Bld) NORM C+C NORMAL NORM C&C [facility] RBC morphology finding Nom ( Bld)Ordered By: Gonzalo Sebastian on 12-09-2024 Red Blood Cell Morphology NORM C+C NORMAL NORM C&C [facility] Erythrocyte morphology assessment NORM C+C NORMAL NORM C&C [facility] CBC W/Diff, Automatedon 11-26 Absolute Neut Normal 2.0-7.7 [facility] Comment on above: Result Comment: Canc elled via OM: Order edited - Discontinuing original order Performed By: #### L 100.0100 ####[facility] [address] [place], [address] HCT Normal 37-47 [facility] Comment on above: Result Comment: Canc elled via OM: Order edited - Discontinuing original order Performed By: #### L 100.0100 ####[facility] [address] [place], [address] HGB Normal 12.0-15.0 [facility] Comment on above: Result Comment: Canc elled via OM: Order edited - Discontinuing original order Performed By: #### L 100.0100 ####[facility] [address] [place], [address] MCH Normal 27.0-32.0 [facility] Comment on above: Result Comment: Canc elled via OM: Order edited - Discontinuing original order Performed By: #### L 100.0100 ####[facility] [address] [place], [address] MCHC Normal 32-36 [facility] Comment on above: Result Comment: Canc elled via OM: Order edited - Discontinuing original order Performed By: #### L 100.0100 ####[facility] [address] [place], [address] MCV Normal 81-99 [facility] Comment on above: Result Comment: Canc elled via OM: Order edited - Discontinuing original order Performed By: #### L 100.0100 ####[facility] [address] [place], [address] NEUT% Normal 47-70 [facility] Comment on above: Result Comment: Canc elled via OM: Order edited - Discontinuing original order Performed By: #### L 100.0100 ####[facility] [address] [place], [address] PLT Normal 150-450 [facility] Comment on above: Result Comment: Canc elled via OM: Order edited - Discontinuing original order Performed By: #### L 100.0100 ####[facility] [address] [place], [address] RBC Normal 4.2-5.4 [facility] Comment on above: Result Comment: Canc elled via OM: Order edited - Discontinuing original order Performed By: #### L 100.0100 ####[facility] [address] [place], [address] RDW CV Normal 11.6-14.6 [facility] Comment on above: Result Comment: Canc elled via OM: Order edited - Discontinuing original order Performed By: #### L 100.0100 ####[facility] [address] [place], [address] RDW SD Normal 35.1-43.9 [facility] Comment on above: Result Comment: Canc elled via OM: Order edited - Discontinuing original order Performed By: #### L 100.0100 ####[facility] [address] [place], [place], [address] WBC Normal 4.4-11.0 [facility] Comment on above: Result Comment: Canc elled via OM: Order edited - Discontinuing original order Performed By: #### L 100.0100 ####[facility] [address] [place], [place], [address] Modified Barium Swallow Stud yon 12-08-2024 Modified Barium Swallow Study Normal [facility] Influenza virus A and B and SARS-CoV-2 (COVID-19) and Respiratory syncytial virus RNAOrdered By: Gonzalo Sebastian on 12-07-2024 SARS-CoV-2 (COVID-19) RNA KANDY+probe Ql (Unsp spec) [facility] L503.7505on 12-07-2024 Natriuretic peptide B (Bld) [Mass/Vol] 3318 pg/mL High <=900 [facility] Comment on above: Result Comment: Hear t Failure Unlikely: < 300 pg/mLHeart Failure Likely< 50 Years: > 450 pg/mL50-75 Years: > 900 pg/mL>75 Years: > 1800 pg/mL Performed By: #### L 503.7505 ####[facility] [address] [place], [place], [address] Laboratory - Chemistry and C hemistry - challengeOrdered By: Gonzalo Sebastian on 12-07-2024 Natriuretic peptide B (Bld) [Mass/Vol] 3318 pg/mL High <900 [facility] Comment on above: Heart Failure Unlike ly: < 300 pg/mLHeart Failure Likely< 50 Years: > 450 pg/mL50-75 Years: > 900 pg/mL>75 Years: > 1800 pg/mL M100.678on 12-07-2024 M100.678 Pending SARS-CoV-2 (COVID 19) Negative INFLUENZA A Negative INFLUENZA B Negative RSV PCR Negative Normal [facility] Comment on above: Performed By: #### M 100.678 ####[facility] [address] [place], [address] No Panel InformationOrdered By: Gonzalo Sebastian on 12-07-2024 3318 pg/mL High <900 [facility] Absolute neutrophil countOrd ered By: Gonzalo Sebastian on 12-06-2024 Neutrophils (Bld) [#/Vol] 23.2 10*3/uL High 2.0-7.7 [facility] Anion gap in Serum or Plasma Ordered By: Gonzalo Sebastian on 12-06-2024 Anion gap [Moles/Vol] 13 mmol/L 5-15 [facility] Automated lymphocyte count a s percentage of total leukocytesOrdered By: Gonzalo Sebastian on 12-06-2024 Lymphocytes/100 WBC Auto (Unsp spec) 4.5 % Low 19-41 [facility] BUN/creatinine ratioOrdered By: Gonzalo Sebastian on 12-06-2024 Urea nitrogen/Creatinine [Mass ratio] 27.8 mg/mg High 10-20 [facility] Basic Metabolic Profile (BMP )on 12-06-2024 BUN/CRE 27.8 RATIO High 10-20 [facility] Comment on above: Performed By: #### L 503.7505, L500.2500, L100.0100, L509.7001 ####[facility] [address] [place], [address] Calcium [Mass/Vol] 9.3 mg/dL Normal 7.6-11.0 [facility] Comment on above: Performed By: #### L 503.7505, L500.2500, L100.0100, L509.7001 ####[facility] [address] [place], [address] Chloride [Moles/Vol] 98 mmol/L Normal 98-108 [facility] Comment on above: Performed By: #### L 503.7505, L500.2500, L100.0100, L509.7001 ####[facility] [address] [place], [address] CO2 [Moles/Vol] 23.2 mmol/L Normal 21.0-32.0 [facility] Comment on above: Performed By: #### L 503.7505, L500.2500, L100.0100, L509.7001 ####[facility] [address] [place], [address] Creatinine [Mass/Vol] 1.57 mg/dL High 0.70-1.20 [facility] Comment on above: Performed By: #### L 503.7505, L500.2500, L100.0100, L509.7001 ####[facility] [address] [place], [address] ECRCL 31.13 ml/min Low 50-250 [facility] Comment on above: Performed By: #### L 503.7505, L500.2500, L100.0100, L509.7001 ####[facility] [address] [place], [address] GAP 13 Normal 5-15 [facility] Comment on above: Performed By: #### L 503.7505, L500.2500, L100.0100, L509.7001 ####[facility] [address] [place], [address] GFR/1.73 sq M.predicted among non-blacks MDRD (S/P/Bld) [Vol rate/Area] 37 mL/min/{1.73_m2} Low >60 [facility] Comment on above: Result Comment: mL/m in/1.73m2 CKD-EPI Creatinine Equation (2020) Performed By: #### L 503.7505, L500.2500, L100.0100, L509.7001 ####[facility] [address] [place], [address] Glucose [Mass/Vol] 166 mg/dL High 70-99 [facility] Comment on above: Performed By: #### L 503.7505, L500.2500, L100.0100, L509.7001 ####[facility] [address] [place], [address] Potassium [Moles/Vol] 4.9 mmol/L Normal 3.3-5.1 [facility] Comment on above: Performed By: #### L 503.7505, L500.2500, L100.0100, L509.7001 ####[facility] [address] [place], [address] Sodium [Moles/Vol] 134 mmol/L Normal 133-145 [facility] Comment on above: Performed By: #### L 503.7505, L500.2500, L100.0100, L509.7001 ####[facility] [address] [place], [address] Urea nitrogen [Mass/Vol] 44 mg/dL High 4-19 [facility] Comment on above: Performed By: #### L 503.7505, L500.2500, L100.0100, L509.7001 ####[facility] [address] [place], [address] Basophil percentageOrdered B y: Gonzalo Sebastian on 12-06-2024 Basophils/100 WBC (Bld) 0.2 % 0-1 [facility] Basophil percentage 0.2 % 0-1 [facility] Carbon dioxide, total [Moles /volume] in Central venous bloodOrdered By: Gonzalo Sebastian on 12-06-2024 CO2 [Moles/Vol] 23.2 mmol/L 21.0-32.0 [facility] Chloride assayOrdered By: Soares on 12-06-2024 Chloride [Moles/Vol] 98 mmol/L 98-108 [facility] Echocardiogram study reportO rdered By: Bridgette Gaxiola on 12-06-2024 Study report [facility] [address] [place] [address] Echo Complete 12/05/24 1413 MR#: [id number] Acct: [id number] Name: GRACIE BANUELOS Rep #:[id number] : 1965 59 From: Bridgette lopez MD Attending Dr: Dr. Yrn Kahn, Status: ADM IN Ordering Dr: Gonzalo Sebastian DO Date: 07/22 Location: [facility] Sex: F C Admitted: 12/04/24 Reason For [...] Dictated: 12/05/24 1413 Date Transcribed: 12/06/24 1251 Photo Optics Technician: Signed [facility] Work Phone: [phone] Eosinophil percentageOrdered By: Gonzalo Sebastian on 12-06-2024 Eosinophils/100 WBC (Bld) 0.0 % 0-5 [facility] Eosinophil percentage 0.0 % 0-5 [facility] Erythrocyte distribution wid th ratioOrdered By: Gonzalo Sebastian on 12-06-2024 Erythrocyte distribution width (RBC) [Ratio] 15.3 % High 11.6-14.6 [facility] Erythrocyte distribution wid th standard deviationOrdered By: Gonzalo Sebastian on 12-06-2024 Erythrocyte distribution width (RBC) [Entitic vol] 47.7 fL High 35.1-43.9 [facility] Estimation of creatinine binu aranceOrdered By: Gonzalo Sebastian on 12-06-2024 Estimated Creatinine Clearance Calc 31.13 ml/min Low 50-250 [facility] GFR/1.73 sq M.predicted gregory g non-blacks MDRD (S/P/Bld) [Vol rate/Area]Ordered By: Gonzalo Sebastian on 12-06-2024 Estimated GFR (MDRD) Non-Af Amer 37 Low >60 [facility] Comment on above: mL/min/1.73m2 CKD-EP I Creatinine Equation (2020) Hematocrit Auto (Bld) [Volum e fraction]Ordered By: Gonzalo Sebastian on 12-06-2024 Hematocrit (Bld) [Volume fraction] 39.6 % 37-47 [facility] Hemoglobin measurementOrdere d By: Gonzalo Sebastian on 12-06-2024 Hemoglobin (Bld) [Mass/Vol] 12.6 g/dL 12.0-15.0 [facility] Immature granulocytes/100 WB C Auto (Bld)Ordered By: Gonzalo Sebastian on 12-06-2024 Immature granulocytes/100 WBC (Bld) 0.900 % 0.0-0.9 [facility] Comment on above: IG% - Immature Granu locytes (promyelocytes, myelocytes and metamyelocytes) > 1% indicates that a LEFT SHIFT is Present. Automated immature granulocyte percentage 0.900 % 0.0-0.9 [facility] L503.7505on 12-06-2024 Natriuretic peptide B (Bld) [Mass/Vol] 2014 pg/mL High <=900 [facility] Comment on above: Result Comment: Hear t Failure Unlikely: < 300 pg/mLHeart Failure Likely< 50 Years: > 450 pg/mL50-75 Years: > 900 pg/mL>75 Years: > 1800 pg/mL Performed By: #### L 503.7505, L500.2500, L100.0100, L509.7001 ####[facility] [address] [place], [place], [address] L509.7001on 12-06-2024 Procalcitonin 0.31 ng/mL High <=0.10 [facility] Comment on above: Result Comment: Inte [...] By: #### L 503.7505, L500.2500, L100.0100, L509.7001 ####[facility] [address] [place], [place], [address] Lymphocytes Auto (Unsp spec) [#/Vol]Ordered By: Gonzalo Sebastian on 12-06-2024 Lymphocytes (Bld) [#/Vol] 1.17 10*3/uL 0.83-4.51 [facility] Lymphocytes/100 WBC Auto (Un sp spec)Ordered By: Gonzalo Sebastian on 12-06-2024 Lymphocytes/100 WBC (Bld) 4.5 % Low 19-41 [facility] Automated lymphocyte count as percentage of total leukocytes 4.5 % Low 19-41 [facility] MCV (mean corpuscular volume ) determinationOrdered By: Gonzalo Sebastian on 12-06-2024 MCV (RBC) [Entitic vol] 85.7 fL 81-99 [facility] Mean corpuscular hemoglobin (MCH) determinationOrdered By: Gonzalo Sebastian on 12-06-2024 MCH (RBC) [Entitic mass] 27.3 pg 27.0-32.0 [facility] Mean corpuscular hemoglobin concentration (MCHC) determinationOrdered By: Gonzalo Sebastian on 12-06-2024 MCHC (RBC) [Mass/Vol] 31.8 g/dL Low 32-36 [facility] Mean platelet volume determi nationOrdered By: Gonzalo Sebastian on 12-06-2024 Platelet mean volume (Bld) [Entitic vol] 10.5 fL 6.2-12.0 [facility] Monocyte percentageOrdered B y: Gonzalo Sebastian on 12-06-2024 Monocytes/100 WBC (Bld) 6.0 % 0-10 [facility] Monocyte percentage 6.0 % 0-10 [facility] Neutrophil percentageOrdered By: Gonzalo Sebastian on 12-06-2024 Neutrophils/100 WBC (Bld) 88.4 % High 47-70 [facility] No Panel InformationOrdered By: Gonzalo Sebastian on 12-06-2024 Procalcitonin 0.31 ng/mL High <0.11 [facility] Comment on above: Interpretation:<0.10 -0.25 ng/mL: [...] of the patient. 0.31 ng/mL High <0.11 [facility] Nucleated red blood cell per centageOrdered By: Gonzalo Sebastian on 12-06-2024 Nucleated RBC/100 WBC (Bld) [Ratio] 0 % 0-5 [facility] Nucleated red blood cell percentage 0 % 0-5 [facility] Pathologist review Geovany (Unsp spec) [Interp]Ordered By: Gonzalo Sebastian on 12-06-2024 Differential Pathologist's Review May foll [facility] Platelet countOrdered By: Soares on 12-06-2024 Platelets (Bld) [#/Vol] 260 10*3/uL 150-450 [facility] Platelets LM Ql (Bld)Ordered By: Gonzalo Sebastian on 12-06-2024 Platelet Estimate A ADEQ [facility] Potassium (Unsp spec) [Mass/ Vol]Ordered By: Gonzalo Sebastian on 12-06-2024 Potassium [Moles/Vol] 4.9 mmol/L 3.3-5.1 [facility] RBC Auto (Bld) [#/Vol]Ordere d By: Gonzalo Sebastian on 12-06-2024 RBC (Bld) [#/Vol] 4.62 10*6/uL 4.2-5.4 [facility] Serum creatinine measurement (mass/volume)Ordered By: Gonzalo Sebastian on 12-06-2024 Creatinine [Mass/Vol] 1.57 mg/dL High 0.70-1.20 [facility] Serum glucose measurement (m ass/volume)Ordered By: Gonzalo Sebastian on 12-06-2024 Glucose [Mass/Vol] 166 mg/dL High 70-99 [facility] Serum or plasma calcium esthela urement (mass/volume)Ordered By: Gonzalo Sebastian on 12-06-2024 Calcium [Mass/Vol] 9.3 mg/dL 7.6-11.0 [facility] Serum or plasma urea nitroge n measurement (mass/volume)Ordered By: Gonzalo Sebastian on 12-06-2024 Urea nitrogen [Mass/Vol] 44 mg/dL High 4-19 [facility] Sodium levelOrdered By: Matt Sebastian on 12-06-2024 Sodium [Moles/Vol] 134 mmol/L 133-145 [facility] White blood cell (WBC) count Ordered By: Gonzalo Sebastian on 12-06-2024 WBC (Bld) [#/Vol] 26.2 10*3/uL High 4.4-11.0 [facility] ALP [Catalytic activity/Vol] Ordered By: Aleta Aguayo on 12-05-2024 Serum or plasma alkaline phosphatase measurement 149 U/L High 35-104 [facility] ALT [Catalytic activity/Vol] Ordered By: Aleta Aguayo on 12-05-2024 Serum or plasma alanine aminotransferase (ALT) measurement 39 U/L High <35 [facility] Albumin [Mass/Vol]Ordered By : Aleta Aguayo on 12-05-2024 Serum or plasma albumin measurement (mass/volume) 3.8 g/dL 3.4-4.8 [facility] Albumin/Globulin [Mass ratio ]Ordered By: Aleta Aguayo on 12-05-2024 Serum or plasma albumin/globulin mass ratio 1.2 RATIO 0.9-2.4 [facility] Arterial patency Wrist arter y --pre arterial punctureOrdered By: Yrn Kahn on 12-05-2024 Sergei Test Positive [facility] Assessment of wrist artery patency prior to arterial puncture Positive [facility] Assessment of wrist artery p atency prior to arterial punctureOrdered By: Yrn Kahn on 12-05-2024 Arterial patency Wrist artery --pre arterial puncture Positive [facility] Base excess Calc (BldV) [Mol es/Vol]Ordered By: Yrn Kahn on 12-05-2024 Blood Gas Base Excess -1 mmol/L -2-2 [facility] Blood base excess determination -1 mmol/L -2-2 [facility] Bilirubin, totalOrdered By: Aleta Aguayo on 12-05-2024 Bilirubin [Mass/Vol] 0.18 mg/dL 0.00-1.30 [facility] Bilirubin, total 0.18 mg/dL 0.00-1.30 [facility] Blood Gases by CPSon 025 Base excess Calc (Bld) [Moles/Vol] -1 mmol/L Normal -2 to +2 [facility] Comment on above: Performed By: #### L 8999.0800 ####[facility] [address] [place], [address] Blood Gas Type ART Normal [facility] Comment on above: Performed By: #### L 0.0800 ####[facility] [address] [place], [address] CO2 [Moles/Vol] 28 mmol/L Normal [facility] Comment on above: Performed By: #### L 9000.0800 ####[facility] [address] [place], [address] Comment 60 75 Normal [facility] Comment on above: Performed By: #### L 8999.0800 ####[facility] [address] [place], [address] HCO3 (Bld) [Moles/Vol] 26.4 mmol/L High 22-26 [facility] Comment on above: Performed By: #### L 8999.0800 ####[facility] [address] [place], [address] Mode Not entered [facility] Comment on above: Performed By: #### L 0.0800 ####[facility] [address] [place], [address] O2 Delivery Dev Not entered [facility] Comment on above: Performed By: #### L 9000.0800 ####[facility] [address] [place], [address] pCO2 61.0 mmHg High 35-45 [facility] Comment on above: Performed By: #### L 9000.0800 ####[facility] [address] [place], [address] pH (Bld) 7.24 [pH] Low 7.35-7.45 [facility] Comment on above: Performed By: #### L 9000.0800 ####[facility] [address] [place], [address] PO2 68 mmHG Low 75-100 [facility] Comment on above: Performed By: #### L 9000.0800 ####[facility] [address] [place], [address] SITE R Radial Normal [facility] Comment on above: Performed By: #### L 8999.0800 ####[facility] [address] [place], [address] SO2 89 Low 95-99 [facility] Comment on above: Performed By: #### L 8999.0800 ####[facility] [address] [place], [address] SERGEI TEST Positive Normal [facility] Comment on above: Performed By: #### L 8999.0800 ####[facility] [address] [place], [address] Base excess Calc (Bld) [Moles/Vol] -3 mmol/L Low -2 to +2 [facility] Comment on above: Performed By: #### L 8999.0800 ####[facility] [address] [place], [address] Blood Gas Type ART Normal [facility] Comment on above: Performed By: #### L 8999.0800 ####[facility] [address] [place], [address] CO2 [Moles/Vol] 25 mmol/L Normal [facility] Comment on above: Performed By: #### L 8999.0800 ####[facility] [address] [place], [address] Comment 425 Normal [facility] Comment on above: Performed By: #### L 8999.0800 ####[facility] [address] [place], [address] FI02 45.0 Normal [facility] Comment on above: Performed By: #### L 8999.0800 ####[facility] [address] [place], [address] HCO3 (Bld) [Moles/Vol] 23.8 mmol/L Normal 22-26 [facility] Comment on above: Performed By: #### L 9000.0800 ####[facility] [address] [place], [address] Mode Not entered Normal [facility] Comment on above: Performed By: #### L 9000.0800 ####[facility] [address] [place], [address] O2 Delivery Dev BiPAP Normal [facility] Comment on above: Performed By: #### L 9000.0800 ####[facility] [address] [place], [address] pCO2 51.6 mmHg High 35-45 [facility] Comment on above: Performed By: #### L 9000.0800 ####[facility] [address] [place], [address] pH (Bld) 7.27 [pH] Low 7.35-7.45 [facility] Comment on above: Performed By: #### L 9000.0800 ####[facility] [address] [place], [address] PO2 57 mmHG Low 75-100 [facility] Comment on above: Performed By: #### L 9000.0800 ####[facility] [address] [place], [address] RR 14 Normal [facility] Comment on above: Performed By: #### L 9000.0800 ####[facility] [address] [place], [address] SITE R Radial Normal [facility] Comment on above: Performed By: #### L 9000.0800 ####[facility] [address] [place], [address] SO2 85 Low 95-99 [facility] Comment on above: Performed By: #### L 9000.0800 ####[facility] [address] [place], [address] Blood base excess determinat ionOrdered By: Yrn Kahn on 12-05-2024 Base excess Calc (BldV) [Moles/Vol] -1 mmol/L -2-2 [facility] Blood bicarbonate measuremen tOrdered By: Yrn Kahn on 12-05-2024 Blood Gas Bicarbonate Actual 26.4 mmol/L High [facility] HCO3 (Bld) [Moles/Vol] 26.4 mmol/L High [facility] Blood bicarbonate measurement 26.4 mmol/L High [facility] CBC W/Diff, Automatedon 11-26 Absolute Lymph 0.86 X10 3/uL Normal 0.83-4.51 [facility] Comment on above: Performed By: #### L 100.0100, L501.5200, L500.4050, L501.2300 ####[facility] [address] [place], [address] Absolute Neut 15.1 X10 3/uL High 2.0-7.7 [facility] Comment on above: Performed By: #### L 100.0100, L501.5200, L500.4050, L501.2300 ####[facility] [address] [place], [address] Basophils/100 WBC (Bld) 0.4 % Normal 0-1 [facility] Comment on above: Performed By: #### L 100.0100, L501.5200, L500.4050, L501.2300 ####[facility] [address] [place], [address] Eosinophils/100 WBC (Bld) 0.1 % Normal 0-5 [facility] Comment on above: Performed By: #### L 100.0100, L501.5200, L500.4050, L501.2300 ####[facility] [address] [place], [address] Erythrocyte distribution width (RBC) [Ratio] 14.9 % High 11.6-14.6 [facility] Comment on above: Performed By: #### L 100.0100, L501.5200, L500.4050, L501.2300 ####[facility] [address] [place], [address] Hematocrit (Bld) [Volume fraction] 39.2 % Normal 37-47 [facility] Comment on above: Performed By: #### L 100.0100, L501.5200, L500.4050, L501.2300 ####[facility] [address] [place], [address] Hemoglobin (Bld) [Mass/Vol] 12.2 g/dL Normal 12.0-15.0 [facility] Comment on above: Performed By: #### L 100.0100, L501.5200, L500.4050, L501.2300 ####[facility] [address] [place], [address] IG% 1.400 High 0.0-0.9 [facility] Comment on above: Result Comment: IG% - Immature Granulocytes (promyelocytes, myelocytes andmetamyelocytes) > 1% indicates that a LEFT SHIFT is Present. Performed By: #### L 100.0100, L501.5200, L500.4050, L501.2300 ####[facility] [address] [place], [address] Lymphocytes/100 WBC (Bld) 5.1 % Low 19-41 [facility] Comment on above: Performed By: #### L 100.0100, L501.5200, L500.4050, L501.2300 ####[facility] [address] [place], [address] MCH (RBC) [Entitic mass] 26.5 pg Low 27.0-32.0 [facility] Comment on above: Performed By: #### L 100.0100, L501.5200, L500.4050, L501.2300 ####[facility] [address] [place], [address] MCHC (RBC) [Mass/Vol] 31.1 g/dL Low 32-36 [facility] Comment on above: Performed By: #### L 100.0100, L501.5200, L500.4050, L501.2300 ####[facility] [address] [place], [address] MCV (RBC) [Entitic vol] 85.0 fL Normal 81-99 [facility] Comment on above: Performed By: #### L 100.0100, L501.5200, L500.4050, L501.2300 ####[facility] [address] [place], [address] Monocytes/100 WBC (Bld) 4.0 % Normal 0-10 [facility] Comment on above: Performed By: #### L 100.0100, L501.5200, L500.4050, L501.2300 ####[facility] [address] [place], [address] Neutrophils/100 WBC (Bld) 89.0 % High 47-70 [facility] Comment on above: Performed By: #### L 100.0100, L501.5200, L500.4050, L501.2300 ####[facility] [address] [place], [address] Nucleated RBC (Bld) [#/Vol] 0 10*3/uL Normal 0-5 [facility] Comment on above: Performed By: #### L 100.0100, L501.5200, L500.4050, L501.2300 ####[facility] [address] [place], [address] Platelet mean volume (Bld) [Entitic vol] 10.9 fL Normal 6.2-12.0 [facility] Comment on above: Performed By: #### L 100.0100, L501.5200, L500.4050, L501.2300 ####[facility] [address] [place], [address] Platelets (Bld) [#/Vol] 250 10*3/uL Normal 150-450 [facility] Comment on above: Performed By: #### L 100.0100, L501.5200, L500.4050, L501.2300 ####[facility] [address] [place], [address] RBC (Bld) [#/Vol] 4.61 10*6/uL Normal 4.2-5.4 [facility] Comment on above: Performed By: #### L 100.0100, L501.5200, L500.4050, L501.2300 ####[facility] [address] [place], [address] RDW SD 46.7 fl High 35.1-43.9 [facility] Comment on above: Performed By: #### L 100.0100, L501.5200, L500.4050, L501.2300 ####[facility] [address] [place], [address] WBC (Bld) [#/Vol] 16.9 10*3/uL High 4.4-11.0 [facility] Comment on above: Performed By: #### L 100.0100, L501.5200, L500.4050, L501.2300 ####[facility] [address] [place], [address] Comprehensive Metabolic Prof ilsandor 12-05-2024 Albumin [Mass/Vol] 3.8 g/dL Normal 3.4-4.8 [facility] Comment on above: Performed By: #### L 100.0100, L501.5200, L500.4050, L501.2300 ####[facility] [address] [place], [address] Albumin/Globulin [Mass ratio] 1.2 {ratio} Normal 0.9-2.4 [facility] Comment on above: Performed By: #### L 100.0100, L501.5200, L500.4050, L501.2300 ####[facility] [address] [place], [address] ALK PHOS 149 U/L High 35-104 [facility] Comment on above: Performed By: #### L 100.0100, L501.5200, L500.4050, L501.2300 ####[facility] [address] [place], [address] ALT [Catalytic activity/Vol] 39 U/L High <=34 [facility] Comment on above: Performed By: #### L 100.0100, L501.5200, L500.4050, L501.2300 ####[facility] [address] [place], [address] AST [Catalytic activity/Vol] 62 U/L High <=31 [facility] Comment on above: Performed By: #### L 100.0100, L501.5200, L500.4050, L501.2300 ####[facility] [address] [place], [address] Bilirubin [Mass/Vol] 0.18 mg/dL Normal 0.00-1.30 [facility] Comment on above: Performed By: #### L 100.0100, L501.5200, L500.4050, L501.2300 ####[facility] [address] [place], [address] BUN/CRE 14.0 RATIO Normal 10-20 [facility] Comment on above: Performed By: #### L 100.0100, L501.5200, L500.4050, L501.2300 ####[facility] [address] [place], [address] Calcium [Mass/Vol] 6.7 mg/dL Low 7.6-11.0 [facility] Comment on above: Performed By: #### L 100.0100, L501.5200, L500.4050, L501.2300 ####[facility] [address] [place], [address] Chloride [Moles/Vol] 97 mmol/L Low 98-108 [facility] Comment on above: Performed By: #### L 100.0100, L501.5200, L500.4050, L501.2300 ####[facility] [address] [place], [address] CO2 [Moles/Vol] 21.0 mmol/L Normal 21.0-32.0 [facility] Comment on above: Performed By: #### L 100.0100, L501.5200, L500.4050, L501.2300 ####[facility] [address] [place], [address] Creatinine [Mass/Vol] 1.37 mg/dL High 0.70-1.20 [facility] Comment on above: Performed By: #### L 100.0100, L501.5200, L500.4050, L501.2300 ####[facility] [address] [place], [address] ECRCL 35.67 ml/min Low 50-250 [facility] Comment on above: Performed By: #### L 100.0100, L501.5200, L500.4050, L501.2300 ####[facility] [address] [place], [address] GAP 16 High 5-15 [facility] Comment on above: Performed By: #### L 100.0100, L501.5200, L500.4050, L501.2300 ####[facility] [address] [place], [address] GFR/1.73 sq M.predicted among non-blacks MDRD (S/P/Bld) [Vol rate/Area] 44 mL/min/{1.73_m2} Low >60 [facility] Comment on above: Result Comment: mL/m in/1.73m2 CKD-EPI Creatinine Equation (2020) Performed By: #### L 100.0100, L501.5200, L500.4050, L501.2300 ####[facility] [address] [place], [address] Globulin (S) [Mass/Vol] 3.2 g/dL Normal 2.2-4.2 [facility] Comment on above: Performed By: #### L 100.0100, L501.5200, L500.4050, L501.2300 ####[facility] [address] [place], [address] Glucose [Mass/Vol] 144 mg/dL High 70-99 [facility] Comment on above: Performed By: #### L 100.0100, L501.5200, L500.4050, L501.2300 ####[facility] [address] [place], [address] Potassium [Moles/Vol] 4.8 mmol/L Normal 3.3-5.1 [facility] Comment on above: Performed By: #### L 100.0100, L501.5200, L500.4050, L501.2300 ####[facility] [address] [place], [address] Sodium [Moles/Vol] 134 mmol/L Normal 133-145 [facility] Comment on above: Performed By: #### L 100.0100, L501.5200, L500.4050, L501.2300 ####[facility] [address] [place], [address] T PROT 7.0 g/dL Normal 5.9-8.4 [facility] Comment on above: Performed By: #### L 100.0100, L501.5200, L500.4050, L501.2300 ####[facility] [address] [place], [address] Urea nitrogen [Mass/Vol] 19 mg/dL Normal 4-19 [facility] Comment on above: Performed By: #### L 100.0100, L501.5200, L500.4050, L501.2300 ####[facility] [address], [address] Consultation - Intensiviston 12-05-2024 Consultation - Laundry Operator Finishing Normal [facility] Determination of fraction of inspired oxygenOrdered By: Yrn Kahn on 12-05-2024 Blood Gas Oxygen Percent 45.0 [facility] Determination of fraction of inspired oxygen 45.0 [facility] Echo Completeon 12-05-2024 Echo Complete Normal [facility] Electrocardiogram reportOrde red By: Jose Guadalupe Cotter on 12-05-2024 EKG study [facility] Cardi[facility] Services [address] [place] [address] 12 Lead EKG 12/04/24 1614 MR#: [id number] Acct: [id number] Name: GRACIE BANUELOS Rep #:[id number] : 1965 59 From: Jose Guadalupe gomez [...] baseline artifact Confirmed by Jose Guadalupe Cotter ([id number]), film editor LEONARD BAUTISTA ([id number]) on 12/05/2024 10:48:28 AM Referred By: Confirmed By: Jose Guadalupe Cotter 12/05/24 1048 Date _ Jose Guadalupe Cotter MD CC: Dr. Misbah Elkins MD; Dr. Franco Inman MD; Dr. Yrn Kahn, DO ~ Signed [facility] Other Phone: Laboratory - Chemistry and C hemistry - challengeOrdered By: Aleta Aguayo on 12-05-2024 AST [Catalytic activity/Vol] 62 U/L High <32 [facility] Magnesiumon 12-05-2024 Magnesium [Mass/Vol] 2.0 mg/dL Normal 1.5-2.2 [facility] Comment on above: Performed By: #### L 100.0100, L501.5200, L500.4050, L501.2300 ####[facility] [address] [place], [address] Magnesium (Unsp spec) [Mass/ Vol]Ordered By: Aleta Aguayo on 12-05-2024 Magnesium [Mass/Vol] 2.0 mg/dL 1.5-2.2 [facility] Magnesium measurement (mass/volume) 2.0 mg/dL 1.5-2.2 [facility] Magnesium measurement (mass/ volume)Ordered By: Aleta Aguayo on 12-05-2024 Magnesium (Unsp spec) [Mass/Vol] 2.0 mg/dL 1.5-2.2 [facility] Measurement, pHOrdered By: Mike Kahn on 12-05-2024 pH (Unsp spec) 7.24 [pH] Low 7.35-7.45 [facility] No Panel InformationOrdered By: Yrn Kahn on 12-05-2024 Blood Gas Clinical Comments 60 75 [facility] Blood Gas Sample Site R Radial [facility] Blood Gas Specimen Type ART [facility] Blood Gas Vent Mode Not entered [facility] Oxygen Delivery Device Not entered [facility] ART [facility] R Radial [facility] Not entered [facility] 60 75 [facility] Blood Gas Respiration Rate 14 [facility] 14 [facility] No Panel InformationOrdered By: Aleta Aguayo on 12-05-2024 62 U/L High <32 [facility] Oxygen saturation measuremen tOrdered By: Yrn Kahn on 12-05-2024 Blood Gas Oxygen Saturation 89 % Low 95-99 [facility] Oxygen saturation measurement 89 % Low 95-99 [facility] Partial pressure of carbon d ioxide measurementOrdered By: Yrn Kahn on 12-05-2024 Arterial Blood Partial Pressure CO2 61.0 mmHg High 35-45 [facility] Partial pressure of carbon dioxide measurement 61.0 mmHg High 35-45 [facility] Partial pressure of oxygen m easurementOrdered By: Yrn Kahn on 12-05-2024 Arterial Blood Partial Pressure O2 68 mmHG Low 75-100 [facility] Partial pressure of oxygen measurement 68 mmHG Low 75-100 [facility] Phosphoruson 12-05-2024 Phosphate [Mass/Vol] 6.2 mg/dL High 2.7-4.5 [facility] Comment on above: Performed By: #### L 100.0100, L501.5200, L500.4050, L501.2300 ####[facility] [address] [place], [place], [address] RESPIRATORY PANEL MOLECULARo n 12-05-2024 RP PANEL Normal [facility] Comment on above: Performed By: #### M 100.638 ####[facility] [address] [place], [place], [address] Serum globulin measurementOr dered By: Aleta Aguayo on 12-05-2024 Globulin (S) [Mass/Vol] 3.2 g/dL 2.2-4.2 [facility] Serum globulin measurement 3.2 g/dL 2.2-4.2 [facility] Serum or plasma alanine pimentel otransferase (ALT) measurementOrdered By: Aleta Aguayo on 12-05-2024 ALT [Catalytic activity/Vol] 39 U/L High <35 [facility] Serum or plasma albumin esthela urement (mass/volume)Ordered By: Aleta Aguayo on 12-05-2024 Albumin [Mass/Vol] 3.8 g/dL 3.4-4.8 [facility] Serum or plasma albumin/glob ulin mass ratioOrdered By: Aleta Aguayo on 12-05-2024 Albumin/Globulin [Mass ratio] 1.2 {ratio} 0.9-2.4 [facility] Serum or plasma alkaline jose sphatase measurementOrdered By: Aleta Aguayo on 12-05-2024 ALP [Catalytic activity/Vol] 149 U/L High 35-104 [facility] Serum phosphorus measurement Ordered By: Aleta Aguayo on 12-05-2024 Phosphorus Level 6.2 mg/dL High 2.7-4.5 [facility] Serum phosphorus measurement 6.2 mg/dL High 2.7-4.5 [facility] Total carbon dioxide measure mentOrdered By: Yrn Kahn on 12-05-2024 Blood Gas Total CO2 28 mmol/L [facility] CO2 [Moles/Vol] 28 mmol/L [facility] Total carbon dioxide measurement 28 mmol/L [facility] Total proteinOrdered By: Lilibeth Aguayo on 12-05-2024 Protein [Mass/Vol] 7.0 g/dL 5.9-8.4 [facility] Total protein 7.0 g/dL 5.9-8.4 [facility] pH (Unsp spec)Ordered By: Cherelle Kahn on 12-05-2024 Blood Gas pH 7.24 Low 7.35-7.45 [facility] Measurement, pH 7.24 Low 7.35-7.45 [facility] 12 Lead EKGon 12-04-2024 12 Lead EKG Normal [facility] Absolute neutrophil countOrd ered By: Franco Inman on 12-04-2024 Neutrophils (Bld) [#/Vol] 11.4 10*3/uL High 2.0-7.7 [facility] Anion gap in Serum or Plasma Ordered By: Franco Inman on 12-04-2024 Anion gap [Moles/Vol] 13 mmol/L 5-15 [facility] Assessment of wrist artery p atency prior to arterial punctureOrdered By: Aleta Aguayo on 12-04-2024 Sergei Test Positive Normal [facility] Comment on above: Performed By: #### L 9000.0800 ####[facility] [address] [place], [address] BUN/creatinine ratioOrdered By: Franco Inman on 12-04-2024 Urea nitrogen/Creatinine [Mass ratio] 10.4 mg/mg 07-17 [facility] Base excess Calc (BldV) [Mol es/Vol]Ordered By: Aleta Aguayo on 12-04-2024 Blood Gas Base Excess 1 mmol/L -2-2 [facility] Basic Metabolic Profile (BMP )on 12-04-2024 BUN/CRE 10.4 RATIO Normal 07-17 [facility] Comment on above: Performed By: #### L 100.0100, L500.2500 ####[facility] [address] [place], [address] Calcium [Mass/Vol] 9.2 mg/dL Normal 7.6-11.0 [facility] Comment on above: Performed By: #### L 100.0100, L500.2500 ####[facility] [address] [place], [address] Chloride [Moles/Vol] 99 mmol/L Normal 98-108 [facility] Comment on above: Performed By: #### L 100.0100, L500.2500 ####[facility] [address] [place], [address] CO2 [Moles/Vol] 24.6 mmol/L Normal 21.0-32.0 [facility] Comment on above: Performed By: #### L 100.0100, L500.2500 ####[facility] [address] [place], [address] Creatinine [Mass/Vol] 0.92 mg/dL Normal 0.70-1.20 [facility] Comment on above: Performed By: #### L 100.0100, L500.2500 ####[facility] [address] [place], [address] ECRCL 53.12 ml/min Normal 50-250 [facility] Comment on above: Performed By: #### L 100.0100, L500.2500 ####[facility] [address] [place], [address] GAP 13 Normal 5-15 [facility] Comment on above: Performed By: #### L 100.0100, L500.2500 ####[facility] [address] [place], [address] GFR/1.73 sq M.predicted among non-blacks MDRD (S/P/Bld) [Vol rate/Area] 71 mL/min/{1.73_m2} Normal >60 [facility] Comment on above: Result Comment: mL/m in/1.73m2 CKD-EPI Creatinine Equation (2020) Performed By: #### L 100.0100, L500.2500 ####[facility] [address] [place], [address] Glucose [Mass/Vol] 118 mg/dL High 70-99 [facility] Comment on above: Performed By: #### L 100.0100, L500.2500 ####[facility] [address] [place], [address] Potassium [Moles/Vol] 4.2 mmol/L Normal 3.3-5.1 [facility] Comment on above: Performed By: #### L 100.0100, L500.2500 ####[facility] [address] [place], [address] Sodium [Moles/Vol] 137 mmol/L Normal 133-145 [facility] Comment on above: Performed By: #### L 100.0100, L500.2500 ####[facility] [address] [place], [address] Urea nitrogen [Mass/Vol] 10 mg/dL Normal 4-19 [facility] Comment on above: Performed By: #### L 100.0100, L500.2500 ####[facility] [address] [place], [address] Basophil percentageOrdered B y: Franco Inman on 12-04-2024 Basophils/100 WBC (Bld) 0.9 % 0-1 [facility] Blood Gases by CPSon 025 Base excess Calc (Bld) [Moles/Vol] 1 mmol/L Normal -2 to +2 [facility] Comment on above: Performed By: #### L 9000.0800 ####[facility] [address] [place], [address] Blood Gas Type ART Normal [facility] Comment on above: Performed By: #### L 9000.0800 ####[facility] [address] [place], [address] CO2 [Moles/Vol] 30 mmol/L Normal [facility] Comment on above: Performed By: #### L 9000.0800 ####[facility] [address] [place], [address] FI02 5.0 Normal [facility] Comment on above: Performed By: #### L 9000.0800 ####[facility] [address] [place], [address] HCO3 (Bld) [Moles/Vol] 28.1 mmol/L High 22-26 [facility] Comment on above: Performed By: #### L 9000.0800 ####[facility] [address] [place], [address] Mode Not entered Normal [facility] Comment on above: Performed By: #### L 9000.0800 ####[facility] [address] [place], [address] O2 Delivery Dev Cannula Normal [facility] Comment on above: Performed By: #### L 9000.0800 ####[facility] [address] [place], [address] pCO2 65.4 mmHg High 35-45 [facility] Comment on above: Performed By: #### L 9000.0800 ####[facility] [address] [place], [address] pH (Bld) 7.24 [pH] Low 7.35-7.45 [facility] Comment on above: Performed By: #### L 9000.0800 ####[facility] [address] [place], [address] PO2 68 mmHG Low 75-100 [facility] Comment on above: Performed By: #### L 9000.0800 ####[facility] [address] [place], [address] SITE R Radial Normal [facility] Comment on above: Performed By: #### L 9000.0800 ####[facility] [address] [place], [address] SO2 89 Low 95-99 [facility] Comment on above: Performed By: #### L 9000.0800 ####[facility] [address] [place], [address] Blood bicarbonate measuremen tOrdered By: Aleta Aguayo on 12-04-2024 Blood Gas Bicarbonate Actual 28.1 mmol/L High 22-26 [facility] CBC W/Diff, Automatedon 03-0 Absolute Lymph 0.96 X10 3/uL Normal 0.83-4.51 [facility] Comment on above: Performed By: #### L 100.0100, L500.2500 ####[facility] [address] [place], [address] Absolute Neut 11.4 X10 3/uL High 2.0-7.7 [facility] Comment on above: Performed By: #### L 100.0100, L500.2500 ####[facility] [address] [place], [address] Basophils/100 WBC (Bld) 0.9 % Normal 0-1 [facility] Comment on above: Performed By: #### L 100.0100, L500.2500 ####[facility] [address] [place], [address] Eosinophils/100 WBC (Bld) 0.6 % Normal 0-5 [facility] Comment on above: Performed By: #### L 100.0100, L500.2500 ####[facility] [address] [place], [address] Erythrocyte distribution width (RBC) [Ratio] 14.7 % High 11.6-14.6 [facility] Comment on above: Performed By: #### L 100.0100, L500.2500 ####[facility] [address] [place], [address] Hematocrit (Bld) [Volume fraction] 43.7 % Normal 37-47 [facility] Comment on above: Performed By: #### L 100.0100, L500.2500 ####[facility] [id number] [place], [address] Hemoglobin (Bld) [Mass/Vol] 14.1 g/dL Normal 12.0-15.0 [facility] Comment on above: Performed By: #### L 100.0100, L500.2500 ####[facility] [address] [place], [address] IG% 0.800 Normal 0.0-0.9 [facility] Comment on above: Result Comment: IG% - Immature Granulocytes (promyelocytes, myelocytes andmetamyelocytes) > 1% indicates that a LEFT SHIFT is Present. Performed By: #### L 100.0100, L500.2500 ####[facility] [address] [place], [address] Lymphocytes/100 WBC (Bld) 6.8 % Low 19-41 [facility] Comment on above: Performed By: #### L 100.0100, L500.2500 ####[facility] [address] [place], [address] MCH (RBC) [Entitic mass] 26.9 pg Low 27.0-32.0 [facility] Comment on above: Performed By: #### L 100.0100, L500.2500 ####[facility] [address] [place], [address] MCHC (RBC) [Mass/Vol] 32.3 g/dL Normal 32-36 [facility] Comment on above: Performed By: #### L 100.0100, L500.2500 ####[facility] [address] [place], [address] MCV (RBC) [Entitic vol] 83.4 fL Normal 81-99 [facility] Comment on above: Performed By: #### L 100.0100, L500.2500 ####[facility] [address] [place], [address] Monocytes/100 WBC (Bld) 10.4 % High 0-10 [facility] Comment on above: Performed By: #### L 100.0100, L500.2500 ####[facility] [address] [place], [address] Neutrophils/100 WBC (Bld) 80.5 % High 47-70 [facility] Comment on above: Performed By: #### L 100.0100, L500.2500 ####[facility] [address] [place], [address] Nucleated RBC (Bld) [#/Vol] 0 10*3/uL Normal 0-5 [facility] Comment on above: Performed By: #### L 100.0100, L500.2500 ####[facility] [address] [place], [address] Platelet mean volume (Bld) [Entitic vol] 10.2 fL Normal 6.2-12.0 [facility] Comment on above: Performed By: #### L 100.0100, L500.2500 ####[facility] [address] [place], [address] Platelets (Bld) [#/Vol] 271 10*3/uL Normal 150-450 [facility] Comment on above: Performed By: #### L 100.0100, L500.2500 ####[facility] [address] [place], [address] RBC (Bld) [#/Vol] 5.24 10*6/uL Normal 4.2-5.4 [facility] Comment on above: Performed By: #### L 100.0100, L500.2500 ####[facility] [address] [place], [address] RDW SD 44.6 fl High 35.1-43.9 [facility] Comment on above: Performed By: #### L 100.0100, L500.2500 ####[facility] [address] [place], [address] WBC (Bld) [#/Vol] 14.1 10*3/uL High 4.4-11.0 [facility] Comment on above: Performed By: #### L 100.0100, L500.2500 ####[facility] [address] [place], [address] CTA Chest W/WO Contraston CTA Chest W/WO Contrast Normal [facility] Carbon dioxide, total [Moles /volume] in Central venous bloodOrdered By: Franco Inman on 12-04-2024 CO2 [Moles/Vol] 24.6 mmol/L 21.0-32.0 [facility] Chest PA and Lateralon 12-04 Chest PA and Lateral Normal [facility] Chloride assayOrdered By: Leo Inman on 12-04-2024 Chloride [Moles/Vol] 99 mmol/L 98-108 [facility] Determination of fraction of inspired oxygenOrdered By: Aleta Aguayo on 12-04-2024 Blood Gas Oxygen Percent 5.0 [facility] Emergency Department Summary on 12-04-2024 Emergency Department Summary Normal [facility] Eosinophil percentageOrdered By: Franco Inman on 12-04-2024 Eosinophils/100 WBC (Bld) 0.6 % 0-5 [facility] Erythrocyte distribution wid th ratioOrdered By: Franco Inman on 12-04-2024 Erythrocyte distribution width (RBC) [Ratio] 14.7 % High 11.6-14.6 [facility] Erythrocyte distribution wid th standard deviationOrdered By: Franco Inman on 12-04-2024 Erythrocyte distribution width (RBC) [Entitic vol] 44.6 fL High 35.1-43.9 [facility] Estimation of creatinine binu aranceOrdered By: Franco Inman on 12-04-2024 Estimated Creatinine Clearance Calc 53.12 ml/min 50-250 [facility] GFR/1.73 sq M.predicted gregory g non-blacks MDRD (S/P/Bld) [Vol rate/Area]Ordered By: Franco Inman on 12-04-2024 Estimated GFR (MDRD) Non-Af Amer 71 >60 [facility] Comment on above: mL/min/1.73m2 CKD-EP I Creatinine Equation (2020) H AND P Exam - [facility] 12-04-2024 H&P Exam - Hospitalist Normal [facility] Hematocrit Auto (Bld) [Volum e fraction]Ordered By: Franco Inman on 12-04-2024 Hematocrit (Bld) [Volume fraction] 43.7 % 37-47 [facility] Hemoglobin measurementOrdere d By: Franco Inman on 12-04-2024 Hemoglobin (Bld) [Mass/Vol] 14.1 g/dL 12.0-15.0 [facility] Immature granulocytes/100 WB C Auto (Bld)Ordered By: Franco Inman on 12-04-2024 Immature granulocytes/100 WBC (Bld) 0.800 % 0.0-0.9 [facility] Comment on above: IG% - Immature Granu locytes (promyelocytes, myelocytes and metamyelocytes) > 1% indicates that a LEFT SHIFT is Present. Influenza virus A and B and SARS-CoV-2 (COVID-19) and Respiratory syncytial virus RNAOrdered By: Franco Inman on 12-04-2024 SARS-CoV-2 (COVID-19) RNA KANDY+probe Ql (Unsp spec) [facility] Lipaseon 12-04-2024 Lipase [Catalytic activity/Vol] 25 U/L Normal - [facility] Comment on above: Result Comment: Jenny capellan note:LIPASE revised reference range effective 23.New Lipase methodology. Expected to produce lower valuesthan the previous assay method.NEW Reference Range: 13 - 75 U/L Performed By: #### L 501.2450 ####[facility] [address] [place], [address] Lipase measurementOrdered By : Franco Inman on 12-04-2024 Lipase [Catalytic activity/Vol] 25 U/L - [facility] Comment on above: Please note:LIPASE r evised reference range effective 23. New Lipase methodology. Expected to produce lower values than the previous assay method. NEW Reference Range: 13 - 75 U/L Lipase measurement 25 U/L -75 [facility] Lymphocytes Auto (Unsp spec) [#/Vol]Ordered By: Franco Inman on 12-04-2024 Lymphocytes (Bld) [#/Vol] 0.96 10*3/uL 0.83-4.51 [facility] Lymphocytes/100 WBC Auto (Un sp spec)Ordered By: Franco Inman on 12-04-2024 Lymphocytes/100 WBC (Bld) 6.8 % Low 19-41 [facility] M100.678on 12-04-2024 M100.678 Pending SARS-CoV-2 (COVID 19) Negative INFLUENZA A Negative INFLUENZA B Negative RSV PCR Negative Normal [facility] Comment on above: Performed By: #### M 100.487 ####[facility] [address] [place], [address] MCV (mean corpuscular volume ) determinationOrdered By: Franco Inman on 12-04-2024 MCV (RBC) [Entitic vol] 83.4 fL 81-99 [facility] Mean corpuscular hemoglobin (MCH) determinationOrdered By: Franco Inman on 12-04-2024 MCH (RBC) [Entitic mass] 26.9 pg Low 27.0-32.0 [facility] Mean corpuscular hemoglobin concentration (MCHC) determinationOrdered By: Franco Inman on 12-04-2024 MCHC (RBC) [Mass/Vol] 32.3 g/dL 32-36 [facility] Mean platelet volume determi nationOrdered By: Franco Inman on 12-04-2024 Platelet mean volume (Bld) [Entitic vol] 10.2 fL 6.2-12.0 [facility] Monocyte percentageOrdered B y: Franco Inman on 12-04-2024 Monocytes/100 WBC (Bld) 10.4 % High 0-10 [facility] Neutrophil percentageOrdered By: Franco Inman on 12-04-2024 Neutrophils/100 WBC (Bld) 80.5 % High 47-70 [facility] No Panel InformationOrdered By: Aleta Aguayo on 12-04-2024 Blood Gas Sample Site R Radial [facility] Blood Gas Specimen Type ART [facility] Blood Gas Vent Mode Not entered [facility] Oxygen Delivery Device Cannula [facility] Nucleated red blood cell per centageOrdered By: Franco Inman on 12-04-2024 Nucleated RBC/100 WBC (Bld) [Ratio] 0 % 0-5 [facility] Oxygen saturation measuremen tOrdered By: Aleta Aguayo on 12-04-2024 Blood Gas Oxygen Saturation 89 % Low 95-99 [facility] Partial pressure of carbon d ioxide measurementOrdered By: Aleta Aguayo on 12-04-2024 Arterial Blood Partial Pressure CO2 65.4 mmHg High 35-45 [facility] Partial pressure of oxygen m easurementOrdered By: Aleta Aguayo on 12-04-2024 Arterial Blood Partial Pressure O2 68 mmHG Low 75-100 [facility] Platelet countOrdered By: Leo Inman on 12-04-2024 Platelets (Bld) [#/Vol] 271 10*3/uL 150-450 [facility] Potassium (Unsp spec) [Mass/ Vol]Ordered By: Franco Inman on 12-04-2024 Potassium [Moles/Vol] 4.2 mmol/L 3.3-5.1 [facility] RBC Auto (Bld) [#/Vol]Ordere d By: Franco Inamn on 12-04-2024 RBC (Bld) [#/Vol] 5.24 10*6/uL 4.2-5.4 [facility] Respiratory pathogens DNA an d RNA panel KANDY+probe (Resp)Ordered By: Aleta Aguayo on 12-04-2024 Respiratory Panel (PCR) [facility] Respiratory pathogens detect ion panel by molecular detection methodOrdered By: Aleta Aguayo on 12-04-2024 Respiratory pathogens DNA and RNA panel KANDY+probe (Resp) [facility] Serum creatinine measurement (mass/volume)Ordered By: Franco Inman on 12-04-2024 Creatinine [Mass/Vol] 0.92 mg/dL 0.70-1.20 [facility] Serum glucose measurement (m ass/volume)Ordered By: Franco Inman on 12-04-2024 Glucose [Mass/Vol] 118 mg/dL High 70-99 [facility] Serum or plasma calcium esthela urement (mass/volume)Ordered By: Farnco Inman on 12-04-2024 Calcium [Mass/Vol] 9.2 mg/dL 7.6-11.0 [facility] Serum or plasma urea nitroge n measurement (mass/volume)Ordered By: Franco Inman on 12-04-2024 Urea nitrogen [Mass/Vol] 10 mg/dL 4-19 [facility] Sodium levelOrdered By: Franco Inman on 12-04-2024 Sodium [Moles/Vol] 137 mmol/L 133-145 [facility] Total carbon dioxide measure mentOrdered By: Aleta Aguayo on 12-04-2024 Blood Gas Total CO2 30 mmol/L [facility] White blood cell (WBC) count Ordered By: Franco Inman on 12-04-2024 WBC (Bld) [#/Vol] 14.1 10*3/uL High 4.4-11.0 [facility] pH (Unsp spec)Ordered By: Malinda Aguayo on 12-04-2024 Blood Gas pH 7.24 Low 7.35-7.45 [facility] ANES POSTPROC EVALon 025 ANES POSTPROC EVAL HNO ID: [id number] Author: EDUARD GALEANO MD Service: ? Author [...] Scheduled Providers: Jane Farrell MD; Adrian Laird APRN.PATTERN CHART WRITER; Eduard Galeano MD Responsible Provider: Eduard Galeano [...] December 01, 2024 TIME: 11:19 AM CSN: [id number] Normal [facility] ANES PRE-OPon 12-01-2024 ANES PRE-OP HNO ID: [id number] Author: EDUARD GALEANO MD Service: ? Author Type: Anesthesiologist Type: Anesthesia Preprocedure Evaluation Filed: 12/01/2024 10:04 Note Text: ANESTHESIOLOGY DAY OF SURGERY NOTE : 1965 Procedure Information Anesthesia Start Date/Time: 12/01/24 1002 Scheduled providers: Jane Farrell MD; Adrian Laird APRN.PATTERN CHART WRITER; Eduard Galeano MD Procedure: EGD - THERAPEUTIC, [...] capsule by mouth at bedtime as needed. qbynlz-rlcacmeb-khnsxoz (CREON 24) 24,000-76,000 -120,000 unit delayed release [...] This conta (more content not included)... Normal [facility] 12-01-2024 [facility] Telephone ([facility]) -------- GRACIE BANUELOS ([id number]) 1965 F Date Time Provider Department 12/01/24 JANE FARRELL [facility] During your visit today, we recorded [...] pancreatitis (HCC) [K86.1] Order(s):ERCP [GI18] Order #: [id number] FUTURE Prescriptions as of 12/01/2024 - pantoprazole [...] by mouth at bedtime as needed. - uwaadn-qhufcntd-uztjcbm (CREON 24) 24,000-76,000 -120,000 unit delayed release [...] stress female [N39.3] 11/24/2014 HPV test positive [UFU0615] 11/24/2014 Alcohol dependence in remission (HCC) [F10.21] [...] Status:Closed by JANE FARRELL on 12/01/24 Normal [facility] EGD Study observation Narrat iveon 12-01-[address] [facility] Radiology Study observation (narrative) [facility] NURSING PROGon 12-01-2024 NURSING PROG HNO ID: [id number] Author: RESHMA TELLES RN Service: Nursing Author [...] Electronically Signed By: Reshma Telles RN Normal [facility] NURSING PROG HNO ID: [id number] Author: KATHIE DORANTES RN Service: ? Author [...] Kathie Dorantes RN In Department: GASTROENTEROLOGY Normal [facility]20[facility] GRACIE BANUELOS ([id number]) 1965 F Date Time Provider Department 11/25/24 RAISA JIMENEZ JBSA FT [facility]STON[facility]3 During your visit today, we recorded the [...] by mouth at bedtime as needed. - anqzux-qyhcczwo-oxxffqc (CREON 24) 24,000-76,000 -120,000 unit delayed release [...] stress female [N39.3] 11/24/2014 HPV test positive [[id number]] 11/24/2014 Alcohol dependence in remission (HCC) [F10.21] [...] Encounter Status:Closed by RAISA JIMENEZ on 11/25/24 [facility] Telephone (GASTMN) -------- GRACIE BANUELOS ([id number]) 1965 F Date Time Provider Department 11/25/24 [...] you do prescribe or if you won't [phone] (does not use MyChart) Juan Abbott LPN [...] by mouth at bedtime as needed. - tctobb-ztvuotve-pqzejtk (CREON 24) 24,000-76,000 -120,000 unit delayed release [...] stress female [N39.3] 11/24/2014 HPV test positive [YFX0254] 11/24/2014 Alcohol dependence in remission (HCC) [F10.21] 07/10/2015 11/02/2018 Pulmonary emphysema (HCC) [J43.9] 11/27/2015 Irritable bowel syndrome with both constipation*08/27/2017 Alcohol use disorder, moderate, dependence (HCC*08/27/2017 DDD (degenerative disc disease), cervical [M50.*09/03/2018 Severe protein-calorie malnutrition (HCC) [E43] 01/07/2019 12/26/2022 Chronic recurrent pancreatitis (HCC) [K86.1] 01/07/2019 Reactive depression [F32.9] 04/28/2019 Alcohol-induced chronic pancreatitis (HCC) [K86*07/26/2019 Mo (more content not included)... Normal [facility] NURSING PROGon 11-24-2024 NURSING PROG HNO ID: [id number] Author: CARROLL LEBLANC RN Service: ? Author Type: Registered Nurse Type: Nursing Progress Note Filed: 11/24/2024 16:10 Note Text: Attempted to reach the patient at the contact number that they provided [phone] (home) . Unable to speak with patient so without identifying the patient the following information was left on their voice mail: Date of procedure, location and report time Prep instructions A message was left informing the patient/patient personal banking representative they must have a responsible adult [...] Number to call with questions or concerns [phone] Number to call to cancel their procedure [phone] Carroll Leblanc RN [facility] Matteo 11-08-2024 [facility] Telephone (INTMWS) -------- GRACIE BANUELOS ([id number]) 1965 F Date Time Provider Department 11/08/24 [...] by mouth at bedtime as needed. - hhufzn-cbpzsqdp-tcxtbtx (CREON 24) 24,000-76,000 -120,000 unit delayed release [...] stress female [N39.3] 11/24/2014 HPV test positive [[id number]] 11/24/2014 Alcohol dependence in remission (HCC) [F10.21] 07/10/2015 11/02/2018 Pulmonary emphysema (HCC) [J43.9] 11/27/2015 Irritable bowel syndrome with both constipation*08/27/2017 Alcohol use disorder, moderate, dependence (HCC*08/27/2017 DDD (degenerative disc disease), cervical [M50.*09/03/2018 Severe protein-calorie malnutrition (HCC) [E43] 01/07/2019 12/26/2022 Chronic recurrent pancreatitis (HCC) [K86.1] 01/07/2019 Reactive depression [F32.9] 04/28/2019 Alcohol-induced chronic pancreatitis (HCC) [K86*07/26 (more content not included)... Normal [facility] CNOVon 11-07-2024 CNOV Office Visit (INTMWS ) -------- GRACIE BANUELOS ([id number]) 1965 F Date Time Provider Department 11/07/24 [...] anxiety and depression. She was admitted to [facility] from 01/01 to 01/04 for pneumonia and [...] as needed (more content not included)... Normal [facility] XR CHEST 2V FRONTAL/LATon XR CHEST 2V [...] tissues: Unremarkable. IMPRESSION: No acute radiographic abnormality. Photo Optics Technician: BABATUNDE Transcribe Date/Time: Nov 07 2024 4:49P Dictated by : EDUARDO MATTHEWS MD This examination was interpreted and the report reviewed and electronically signed by: EDUARDO MATTHEWS MD on Nov 07 2024 4:49PM EST [id number] Normal [facility] XR Chest PA and Lateralon IMPRESSION: No acute radiographic abnormality. Photo Optics Technician: BABATUNDE Transcribe Date/Time: Nov 07 2024 4:49P [...] soft tissues: Unremarkable. DIVISION OF RADIOLOGY Provider, [facility] - 11/07/2024 * * *Final [...] Unremarkable. IMPRESSION IMPRESSION: No acute radiographic abnormality. Photo Optics Technician: PSCB Transcribe Date/Time: Nov 07 2024 4:49P Dictated by : EDUARDO MATTHEWS MD This examination was interpreted and the report reviewed and electronically signed by: EDUARDO MATTHEWS MD on Nov 07 2024 4:49PM EST [facility] Radiology Study observation (narrative) [facility] XR Chest PA and LateralOrder ed By: Ccf Provider on 11-07-[address] [facility] Matteo 08-31-2024 [facility] -------- BANUELOSGRACIE ([id number]) 1965 F Date Time Provider Department 08/31/24 [facility] During your visit today, we recorded the [...] am reconsulting her. Thank you Soila Easton APRN.[facility] Allergies As of Date: 08/31/2024 Noted Allergy [...] chronic pancreatitis (HCC) [K86.0] Order(s):CONSULT TO GASTROENTEROLOGY [9026] Order #: [id number]: 1 FUTURE Prescriptions as of 02/06/2025 - [...] stress female [N39.3] 11/24/2014 HPV test positive [[id number]] 11/24/2014 Alcohol dependence in remission (HCC) [F10.21] 07/10/2015 11/02/2018 Pulmonary emphysema (HCC) [J43.9] 11/27/2015 Irritable bowel syndrome with both constipation*08/27/2017 Alcohol use di (more content not included)... Normal [facility] CT ABD/PEL W IVCONon 024 CT ABD/PEL W IVCON * * *Final Report* * * DATE OF EXAM: Aug 23 2024 9:53AM [facility] 0530 - CT ABD/PEL W [...] finding of the abdomen or pelvis seen. Photo Optics Technician: ROBERTS CHAPELTova Transcribe Date/Time: Aug 25 2024 10:38P Dictated by : YIN HERNANDEZ MD This examination was interpreted and the report reviewed and electronically signed by: YIN HERNANDEZ MD on Aug 25 2024 10:47PM EST [id number] [facility] Telephone (INTMWS) -------- GRACIE BANUELOS ([id number]) 1965 Lavell Yanez* Date Time Provider Department 08/19/24 MISBAH ELKINS During your visit today, we recorded the following information about you: Maribeth Owen LPN 08/19/2024 11:37 AM Signed Pt called in to reports she is still getting the Lexapro in her packs. I called [facility] and they will pick her packs [...] 1 tablet by mouth once daily. - rremcf-jzbhomok-gdjtyen (CREON 24) 24,000-76,000 -120,000 unit delayed release [...] stress female [N39.3] 11/24/2014 HPV test positive [[id number]] 11/24/2014 Alcohol dependence in remission (HCC) [F10.21] [...] Encounter Status:Closed by MARIBETH OWEN on 08/19/24 [facility] 08-15-2024 CNOV Office Visit (INTMWS ) -------- GRACIE BANUELOS ([id number]) 1965 F [place]* Date Time Provider [...] shortness of breath all improving. Goes to [place] [facility] with next routine exam in September. [...] Take 1 tablet by mouth once daily. ekzrtj-dmgjxjpu-phvzduc (CREON 24) 24,000-76,000 -120,000 unit delayed release [...] daily. panto (more content not included)... Normal [facility] Amylase SerPl-cCncon 024 Amylase [Catalytic activity/Vol] 104 U/L Normal 30-104 [facility] Comment on above: Order Comment: Speci men Type: BLOOD SPECIMEN Ordering Facility: [facility] Address: [address] [place] [address] Performed By: #### 2 4323-8, 3039-3, 1798-04 #### [facility] CLIA [id number] [address] [place] [address] [place] Comprehensive metabolic 2000 panelon 08-12-2024 Albumin [Mass/Vol] 4.4 g/dL Normal 3.9-4.9 [facility] Comment on above: Order Comment: Speci men Type: BLOOD SPECIMEN Ordering Facility: [facility] Address: [address] [place] [address] Performed By: #### 2 4323-8, 3039-3, 1798-04 #### [facility] CLIA [id number] [address] [place] [address] [place] ALP [Catalytic activity/Vol] 142 U/L High 34-123 [facility] Comment on above: Order Comment: Speci men Type: BLOOD SPECIMEN Ordering Facility: [facility] Address: [address] [place] [address] Performed By: #### 2 4323-8, 3039-3, 1798-04 #### [facility] CLIA [id number] [address] [place] [address] [place] ALT [Catalytic activity/Vol] 12 U/L Normal 7-38 [facility] Comment on above: Order Comment: Speci men Type: BLOOD SPECIMEN Ordering Facility: [facility] Address: [address] [place] [address] Performed By: #### 2 4323-8, 3039-3, 1798-04 #### [facility] CLIA [id number] [address] [address] [place] Anion gap [Moles/Vol] 12 mmol/L Normal 8-15 [facility] Comment on above: Order Comment: Speci men Type: BLOOD SPECIMEN Ordering Facility: [facility] Address: [address] [place] [address] Performed By: #### 2 4323-8, 3, 1798-04 #### [facility] CLIA [id number] [address] [place], [place] [id number] [place] AST [Catalytic activity/Vol] 15 U/L Normal 13-35 [facility] Comment on above: Order Comment: Speci men Type: BLOOD SPECIMEN Ordering Facility: [facility] Address: [address] [place] [address] Performed By: #### 2 4323-8, 3, 1798-04 #### [facility] CLIA [id number] [address] [place] [address] [place] Bilirubin [Mass/Vol] 0.2 mg/dL Normal 0.2-1.3 [facility] Comment on above: Order Comment: Speci men Type: BLOOD SPECIMEN Ordering Facility: [facility] Address: [address] [place], [place] [address] Performed By: #### 2 4323-8, 3, 1798-04 #### [facility] CLIA [id number] [address] [place], [place] [id number] [place] Calcium [Mass/Vol] 9.6 mg/dL Normal 8.5-10.2 [facility] Comment on above: Order Comment: Speci men Type: BLOOD SPECIMEN Ordering Facility: [facility] Address: [address] [place], [place] [address] Performed By: #### 2 4323-8, 3, 1798-04 #### [facility] CLIA [id number] [address] [place] [address] [place] Chloride [Moles/Vol] 97 mmol/L Low 98-107 [facility] Comment on above: Order Comment: Speci men Type: BLOOD SPECIMEN Ordering Facility: [facility] Address: [address] [place] [address] Performed By: #### 2 4323-8, 3040-3, 8 #### [facility] CLIA [id number] [address] [place] [address] [place] CO2 [Moles/Vol] 26 mmol/L Normal 22-30 [facility] Comment on above: Order Comment: Speci men Type: BLOOD SPECIMEN Ordering Facility: [facility] Address: [address] [place] [address] Performed By: #### 2 4323-8, 0-3, 8 #### [facility] CLIA [id number] [address] [place] [address] [place] Creatinine [Mass/Vol] 0.82 mg/dL Normal 0.58-0.96 [facility] Comment on above: Order Comment: Speci men Type: BLOOD SPECIMEN Ordering Facility: [facility] Address: [address] [place] [address] Performed By: #### 2 4323-8, 3039-3, 8 #### [facility] CLIA [id number] [address] [place] [address] [place] Creatinine and Glomerular filtration rate.predicted panel (S/P/Bld) 81 mL/min/1.73m??? Normal >=60 [facility] Comment on above: Order Comment: Speci men Type: BLOOD SPECIMEN Ordering Facility: [facility] Address: [address] [place] [address] Result Comment: Pavan mated Glomerular Filtration Rate [...] By: #### 2 4323-8, 3039-3, 1798-04 #### [facility] CLIA [id number] [address] [address] [place] Glucose [Mass/Vol] 101 mg/dL High 74-99 [facility] Comment on above: Order Comment: Reggie fajardo Type: BLOOD SPECIMEN Ordering Facility: [facility] Address: [address] [place] [address] Result Comment: The [place] Diabetes Association (ADA) provides guidance for cutoff [...] Standards of Medical Care in Diabetes 2016, [place] Diabetes Association. Diabetes Care. 2016.39(Suppl 1). Performed By: #### 2 4323-8, 3, 1798-04 #### [facility] CLIA [id number] [address] [place] [address] [place] Potassium [Moles/Vol] 4.6 mmol/L Normal 3.7-5.1 [facility] Comment on above: Order Comment: Reggie fajardo Type: BLOOD SPECIMEN Ordering Facility: [facility] Address: [address] [place] [address] Performed By: #### 2 4323-8, 3, 1798-04 #### [facility] CLIA [id number] [address] [address] [place] Protein [Mass/Vol] 7.7 g/dL Normal 6.3-8.0 [facility] Comment on above: Order Comment: Speci men Type: BLOOD SPECIMEN Ordering Facility: [facility] Address: [address] [place] [address] Performed By: #### 2 4323-8, 3, 1798-04 #### [facility] CLIA [id number] [address] [place] [address] [place] Sodium [Moles/Vol] 135 mmol/L Low 136-144 [facility] Comment on above: Order Comment: Speci men Type: BLOOD SPECIMEN Ordering Facility: [facility] Address: [address] [place] [address] Performed By: #### 2 4323-8, 3, 1798-04 #### [facility] CLIA [id number] [address] [place] [address] [place] Urea nitrogen [Mass/Vol] 15 mg/dL Normal 7-21 [facility] Comment on above: Order Comment: Speci men Type: BLOOD SPECIMEN Ordering Facility: [facility] Address: [address] [place] [address] Performed By: #### 2 4323-8, 3039-11, 1798-04 #### [facility] CLIA [id number] [address] [place] [address] [place] HbA1c (Bld)on 08-12-2024 Average glucose Estimated from glycated hemoglobin (Bld) [Mass/Vol] 131 mg/dL Normal [facility] Comment on above: Order Comment: Speci men Type: BLOOD SPECIMENOrdering Facility: [facility] Address: [address] [place] [address] Result Comment: eAG: (Estimated average glucose) is a calculated value from HgbA1c and is personal banking representative of the average blood glucose level in the last 2-3 month period. Performed By: #### 5 5454-3 ####[facility] [id number] [place] [address] [place] HbA1c (Bld) [Mass fraction] 6.2 % High 4.3-5.6 [facility] Comment on above: Order Comment: Reggie fajardo Type: BLOOD SPECIMENOrdering Facility: [facility] Address: [address] [place] [address] Result Comment: [place] Diabetes Association guidelines indicate that patients with HgbA1c in the range 5.7-6.4% are at increased risk for development of diabetes, and intervention by lifestyle modification may be beneficial. HgbA1c greater or equal to 6.5% is considered diagnostic of diabetes. Performed By: #### 5 5454-3 ####[facility] [id number] [place] [address] [place] Lipase SerPl-cCncon 08-12-20 24 Lipase [Catalytic activity/Vol] 87 U/L High 16-61 [facility] Comment on above: Order Comment: Reggie fajardo Type: BLOOD SPECIMEN Ordering Facility: [facility] Address: [address] [place] [address] Performed By: #### 2 4323-8, 3040-3, 1798-8 #### [facility] CLIA [id number] [address] [place] [address] [place] Matteo 08-11-2024 CNPN Telephone (INTWS) -------- GRACIE BANUELOS ([id number]) 1965 [place] Yanez* Date Time Provider Department 08/11/24 MISBAH ELKINS INTWS During your visit today, we recorded the following information about you: Maribeth Owen LPN 08/11/2024 3:21 PM Signed ----- Message from Soila Easton APRN.PROPERTY DISPOSAL OFFICER sent at 08/11/2024 3:16 PM EST ----- [...] 1 tablet by mouth once daily. - euhpwb-osmvbdrb-jomjiof (CREON 24) 24,000-76,000 -120,000 unit delayed release [...] stress female [N39.3] 11/24/2014 HPV test positive [[id number]] 11/24/2014 Alcohol dependence in remission (HCC) [F10.21] [...] colonic polyps (more content not included)... Normal [facility] CNOVon 08-10-2024 CNOV Office Visit (INTMWS ) -------- GRACIE BANUELOS Salvatore ([id number]) 1965 [place] Yanez* Date Time Provider Department [...] 3 severe COPD by GOLD classification ([facility]) 2018 Tobacco use greater than 30 years [...] Take 1 tablet by mouth once daily. edalou-svousszb-kfexgoi (CREON 24) 24,000-76,000 -120,000 unit delayed release [...] by m (more content not included)... Normal [facility] Matteo 08-10-2024 [facility] Telephone (INTMWS) -------- GRACIE BANUELOS ([id number]) 1965 [place]* Date Time Provider [...] 1 tablet by mouth once daily. - ztvtnp-qcvdeehz-wiyyhli (CREON 24) 24,000-76,000 -120,000 unit delayed release [...] stress female [N39.3] 11/24/2014 HPV test positive [[id number]] 11/24/2014 Alcohol dependence in remission (HCC) [F10.21] 07/10/2015 11/02/2018 Pulmonary emphysema (HCC) [J43.9] 11/27/2015 Irritable bowel syndrome with both constipation*08/27/2017 Alcohol use disorder, moderate, dependence (HCC*08/27/2017 DDD (de (more content not included)... Normal [facility] UA DIP, URINE (POC)on 2023 BILIRUBIN UA (POCT) Negative Negative [facility] CLARITY UA (POCT) Clear [facility] COLOR UA (POCT) Yellow [facility] GLUCOSE UA (POCT) Negative Negative mg/dL [facility] Hemoglobin Ql (U) Negative Negative [facility] KETONE UA (POCT) Negative Negative mg/dL [facility] LEUKOCYTES UA (POCT) Negative Negative [facility] NITRITE UA (POCT) Negative Negative [facility] PH UA (POCT) 6.0 4.5 - 8.[address] [facility] Protein Ql (U) Negative Negative mg/dL [facility] SPECIFIC GRAVITY UA (POCT) 1.010 1.005 - 1.[address] [facility] UROBILINOGEN UA (POCT) 0.2 Regina l E.U./dL [facility] Location:[address], [place], [place], [id number] [place] [address] POINT OF CARE [facility] XR CHEST 2V FRONTAL/LATon XR CHEST [...] tissues: Unremarkable. IMPRESSION: No acute radiographic abnormality. Photo Optics Technician: PSCB Transcribe Date/Time: Aug 11 2024 2:55P Dictated by : JEAN-CLAUDE MANRIQUEZ MD This examination was interpreted and the report reviewed and electronically signed by: JEAN-CLAUDE MANRIQUEZ MD on Aug 11 2024 2:56PM EST [id number] Normal [facility] CBC W Auto Differential pane l (Bld)on 08-05-2024 Basophils (Bld) [#/Vol] 0.16 10*3/uL High <0.11 [facility] Comment on above: Order Comment: Speci men Type: BLOOD SPECIMENOrdering Facility: [facility] Address: [address] [place] [address] Performed By: #### 5 7021-8 ####[facility] [id number] [place] [address] [place] Basophils/100 WBC (Bld) 1.1 % Normal [facility] Comment on above: Order Comment: Speci men Type: BLOOD SPECIMENOrdering Facility: [facility] Address: [address] [place] [address] Performed By: #### 5 7021-8 ####[facility] [id number] [place] [address] [place] Differential cell count method Nom (Bld) Auto Normal [facility] Comment on above: Order Comment: Speci men Type: BLOOD SPECIMENOrdering Facility: [facility] Address: [address] [place] [address] Performed By: #### 5 7021-8 ####[facility] [id number] [place] [address] [place] Eosinophils (Bld) [#/Vol] 0.39 10*3/uL Normal <0.46 [facility] Comment on above: Order Comment: Speci men Type: BLOOD SPECIMENOrdering Facility: [facility] Address: [address] [place] [address] Performed By: #### 5 7021-8 ####[facility] [id number] [place] [address] [place] Eosinophils/100 WBC (Bld) 2.7 % Normal [facility] Comment on above: Order Comment: Speci men Type: BLOOD SPECIMENOrdering Facility: [facility] Address: [address] [place] [address] Performed By: #### 5 7021-8 ####[facility] [id number] [place] [address] [place] Erythrocyte distribution width (RBC) [Ratio] 15.7 % High 11.5-15.0 [facility] Comment on above: Order Comment: Speci men Type: BLOOD SPECIMENOrdering Facility: [facility] Address: [address] [place] [address] Performed By: #### 5 7021-8 ####[facility] [id number] [place] [address] [place] Hematocrit (Bld) [Volume fraction] 42.5 % Normal 36.0-46.0 [facility] Comment on above: Order Comment: Speci men Type: BLOOD SPECIMENOrdering Facility: [facility] Address: [address] [place] [address] Performed By: #### 5 7021-8 ####[facility] [id number] [place] [address] [place] Hemoglobin (Bld) [Mass/Vol] 13.6 g/dL Normal 11.5-15.5 [facility] Comment on above: Order Comment: Speci men Type: BLOOD SPECIMENOrdering Facility: [facility] Address: [address] [place] [address] Performed By: #### 5 7021-8 ####[facility] [id number] [place] [address] [place] Immature granulocytes (Bld) [#/Vol] 0.12 10*3/uL High <0.10 [facility] Comment on above: Order Comment: Speci men Type: BLOOD SPECIMENOrdering Facility: [facility] Address: [address] [place] [address] Performed By: #### 5 7021-8 ####[facility] [id number] [place] [address] [place] Immature granulocytes/100 WBC (Bld) 0.8 % Normal [facility] Comment on above: Order Comment: Speci men Type: BLOOD SPECIMENOrdering Facility: [facility] Address: [address] [place] [address] Performed By: #### 5 7021-8 ####[facility] [id number] [place] [address] [place] Lymphocytes (Bld) [#/Vol] 3.77 10*3/uL Normal 1.00-4.00 [facility] Comment on above: Order Comment: Speci men Type: BLOOD SPECIMENOrdering Facility: [facility] Address: [address] [place] [address] Performed By: #### 5 7021-8 ####[facility] [id number] [place] [address] [place] Lymphocytes/100 WBC (Bld) 26.5 % Normal [facility] Comment on above: Order Comment: Speci men Type: BLOOD SPECIMENOrdering Facility: [facility] Address: [address] [place] [address] Performed By: #### 5 7021-8 ####[facility] [id number] [place] [address] [place] MCH (RBC) [Entitic mass] 26.8 pg Normal 26.0-34.0 [facility] Comment on above: Order Comment: Speci men Type: BLOOD SPECIMENOrdering Facility: [facility] Address: [address] [place] [address] Performed By: #### 5 7021-8 ####[facility]IA [id number] [place] [address] [place] MCHC (RBC) [Mass/Vol] 32.0 g/dL Normal 30.5-36.0 [facility] Comment on above: Order Comment: Speci men Type: BLOOD SPECIMENOrdering Facility: [facility] Address: [address] [place] [address] Performed By: #### 5 7021-8 ####[facility] [id number] [place] [address] [place] MCV (RBC) [Entitic vol] 83.8 fL Normal 80.0-100.0 [facility] Comment on above: Order Comment: Speci men Type: BLOOD SPECIMENOrdering Facility: [facility] Address: [address] [place] [address] Performed By: #### 5 7021-8 ####[facility] [id number] [place] [address] [place] Monocytes (Bld) [#/Vol] 1.27 10*3/uL High <0.87 [facility] Comment on above: Order Comment: Speci men Type: BLOOD SPECIMENOrdering Facility: [facility] Address: [address] [place] [address] Performed By: #### 5 7021-8 ####[facility] [id number] [place] [address] [place] Monocytes/100 WBC (Bld) 8.9 % Normal [facility] Comment on above: Order Comment: Speci men Type: BLOOD SPECIMENOrdering Facility: [facility] Address: [address] [place] [address] Performed By: #### 5 7021-8 ####[facility]IA [id number] [place] [address] [place] Neutrophils (Bld) [#/Vol] 8.50 10*3/uL High 1.45-7.50 [facility] Comment on above: Order Comment: Speci men Type: BLOOD SPECIMENOrdering Facility: [facility] Address: [address] [place] [address] Performed By: #### 5 7021-8 ####[facility]CLIA [id number] [place] [address] [place] Neutrophils/100 WBC (Bld) 60.0 % Normal [facility] Comment on above: Order Comment: Speci men Type: BLOOD SPECIMENOrdering Facility: [facility] Address: [address] [place] [address] Performed By: #### 5 7021-8 ####[facility]CLIA [id number] [place] [address] [place] Nucleated RBC (Bld) [#/Vol] 10*3/uL Normal <0.01 [facility] Comment on above: Order Comment: Speci men Type: BLOOD SPECIMENOrdering Facility: [facility] Address: [address] [place] [address] Performed By: #### 5 7021-8 ####[facility]IA [id number] [place] [address] [place] Nucleated RBC/100 WBC (Bld) [Ratio] 0.0 /100 WBC Normal [facility] Comment on above: Order Comment: Speci men Type: BLOOD SPECIMENOrdering Facility: [facility] Address: [address] [place] [address] Performed By: #### 5 7021-8 ####[facility]IA [id number] [place] [address] [place] Platelet mean volume (Bld) [Entitic vol] 10.5 fL Normal 9.0-12.7 [facility] Comment on above: Order Comment: Speci men Type: BLOOD SPECIMENOrdering Facility: [facility] Address: [address] [place] [address] Performed By: #### 5 7021-8 ####[facility]IA [id number] [place] [address] [place] Platelets (Bld) [#/Vol] 340 10*3/uL Normal 150-400 [facility] Comment on above: Order Comment: Speci men Type: BLOOD SPECIMENOrdering Facility: [facility] Address: [address] [place] [address] Performed By: #### 5 7021-8 ####[facility]IA [id number] [place] [address] [place] RBC (Bld) [#/Vol] 5.07 10*6/uL Normal 3.90-5.20 [facility] Comment on above: Order Comment: Speci men Type: BLOOD SPECIMENOrdering Facility: [facility] Address: [address] [place] [address] Performed By: #### 5 7021-8 ####[facility]IA [id number] [place] [id number] [place] WBC (Bld) [#/Vol] 14.21 10*3/uL High 3.70-11.00 [facility] Comment on above: Order Comment: Speci men Type: BLOOD SPECIMENOrdering Facility: [facility] Address: [address] [place] [address] Performed By: #### 5 7021-8 ####[facility]IA [id number] [place] [id number] [place] CNOVon 08-05-2024 CNOV Office Visit (INTMWS ) -------- GRACIE BANUELOS ([id number]) 1965 [place] Date Time Provider [...] anxiety and depression. She was admitted to [facility] from 01/01 to 01/04 for pneumonia and [...] infectious organism 2017 Severe protein-calorie malnutrition ([facility]) 01/07/2019 Stage 3 severe COPD by GOLD classification ([facility]) 2018 Tobacco use greater than 30 years Unspecified hemorrhoids without mention of complication Urine, incontinence, stress female 11/24/2014 PAST SURGICAL HISTORY Procedure Laterality Date APPENDECTOMY at age 14 COLONOSCOPY 04/15/[address], [address] Paul Perez. COLONOSCOPY 01/23/2015 2-Tubular adenomas. D (more content not included)... Normal [facility] CNCOon 07-13-2024 CNCO Letter Text Normal [facility] XR Chest PA and Lateralon IMPRESSION: Bibasilar pulmonary infiltrates versus atelectasis. Photo Optics Technician: PSCB Transcribe Date/Time: Jan 27 2024 4:18P Dictated by : CHELA GAMING MD This examination was interpreted and the report reviewed and electronically signed by: CHELA GAMING MD on Jan 27 2024 4:20PM [facility] DIVISION OF RADIOLOGY * * *Final [...] shows degenerative changes. DIVISION OF RADIOLOGY Provider, [facility] - 01/27/2024 * * *Final [...] IMPRESSION IMPRESSION: Bibasilar pulmonary infiltrates versus atelectasis. Photo Optics Technician: PSCB Transcribe Date/Time: Jan 27 2024 4:18P Dictated by : CHELA GAMING MD This examination was interpreted and the report reviewed and electronically signed by: CHELA GAMING MD on Jan 27 2024 4:20PM EST [facility] XR Chest PA and LateralOrder ed By: Ccf Provider on 01-27-[address] [facility] XR Chest PA and Lateralon Radiology Study observation (narrative) [facility] Absolute lymphocyte countOrd ered By: Bert Green[place] on 01-05-2024 Lymphocytes Auto (Unsp spec) [#/Vol] 3.82 10*3/uL 0.83-4.51 [facility] Basophil percentageOrdered B y: Bert Greenwood on 01-05-2024 Basophil percentage Not Reportable [facility] Chloride [Moles/Vol] 99 mmol/L 98-107 [facility] Glucose [Mass/Vol] 122 mg/dL 74-106 [facility] Comment on above: Fasting Glucose resu lt from 100 to 125 mg/dL suggests IMPAIRED HOMEOSTASIS per A.D.A. criteria. Hemoglobin (Bld) [Mass/Vol] 13.1 g/dL 12.0-15.0 [facility] Neutrophils (Bld) [#/Vol] 24.7 10*3/uL 2.0-7.7 [facility] Potassium [Moles/Vol] 5.0 mmol/L 3.5-5.1 [facility] Sodium [Moles/Vol] 132 mmol/L 136-145 [facility] WBC (Bld) [#/Vol] 29.4 10*3/uL 4.4-11.0 [facility] Blood band neutrophil count as percentage of total leukocytesOrdered By: Bert Greenwood on 01-05-2024 Band form neutrophils/100 WBC (Bld) 3 % 0-5 [facility] Blood lymphocytes/100 leukoc ytesOrdered By: Bert Greenwood on 01-05-2024 Lymphocytes/100 WBC (Bld) 13 % 19-41 [facility] Blood monocytes/100 leukocyt esOrdered By: Bert Greenwood on 01-05-2024 Monocytes/100 WBC (Bld) 2 % 0-10 [facility] Blood platelet adequacy dete ction by light microscopyOrdered By: Bert Greenwood on 01-05-2024 Platelets LM Ql (Bld) MOD INC ADEQ [facility] Blood segmented neutrophils/ 100 leukocytesOrdered By: Bert Greenwood on 01-05-2024 Segmented neutrophils/100 WBC (Bld) 81 % 47-70 [facility] Determination of erythrocyte mean corpuscular volume (MCV)Ordered By: Bert Greenwood on 01-05-2024 MCV (RBC) [Entitic vol] 83.2 fL 81-99 [facility] Erythrocyte distribution wid th ratioOrdered By: Bert Greenwood on 01-05-2024 Erythrocyte distribution width (RBC) [Ratio] 16.0 % 11.6-14.6 [facility] Erythrocyte distribution wid th standard deviationOrdered By: Bert Greenwood on 01-05-2024 Erythrocyte distribution width (RBC) [Entitic vol] 48.2 fL 35.1-43.9 [facility] Hematocrit Auto (Bld) [Volum e fraction]Ordered By: Bert Greenwood on 01-05-2024 Hematocrit (Bld) [Volume fraction] 42.2 % 37-47 [facility] Laboratory - Chemistry and C hemistry - challengeOrdered By: Bert Greenwood on 01-05-2024 CO2 [Moles/Vol] 26.0 mmol/L 21.0-32.0 [facility] Urea nitrogen/Creatinine [Mass ratio] 28.0 mg/mg 10-20 [facility] - Hematology and Cell countsOrdered By: Bert Greenwood on 01-05-2024 MCH (RBC) [Entitic mass] 25.8 pg 27.0-32.0 [facility] MCHC (RBC) [Mass/Vol] 31.0 g/dL 32-36 [facility] Myelocytes/100 WBC (Bld) 1 % 0-0 [facility] Platelet mean volume (Bld) [Entitic vol] 10.1 fL 6.2-12.0 [facility] Platelets (Bld) [#/Vol] 498 10*3/uL 150-450 [facility] No Panel InformationOrdered By: Bert Greenwood on 01-05-2024 Estimated Creatinine Clearance Calc 60.35 ml/min [facility] Estimated GFR (MDRD) Amer 91 mL/min >60 [facility] Comment on above: GFR Calc Estimated GFR (MDRD) Non-Af Amer 75 mL/min >60 [facility] Comment on above: Non- GFR Calc RBC Auto (Bld) [#/Vol]Ordere d By: Bert Greenwood on 01-05-2024 RBC (Bld) [#/Vol] 5.07 10*6/uL 4.2-5.4 [facility] RBC morphologyOrdered By: Dorian Greenwood on 01-05-2024 RBC morphology finding Nom (Bld) NORM C+C NORMAL NORM C&C [facility] Review by pathologistOrdered By: Bert Greenwood on 01-05-2024 Pathologist review Geovany (Unsp spec) [Interp] January ana maría [facility] Pathologist review Geovany (Unsp spec) [Interp] Reviewed [facility] Comment on above: Previous reported re sult: Tiesha gotti Edited by: DESHAWN on 01/06/24:1540Neutrophilic leukocytosis with left shift.Thrombocytosis.Clinical correlation necessary.Javier Best M.D. 01/06/24 AMENDED REPORT 01/06/24 1540 PATH REV previously reported as: January ana maría Serum or plasma calcium esthela urement (mass/volume)Ordered By: Bert Greenwood on 01-05-2024 Calcium [Mass/Vol] 10.5 mg/dL 8.5-10.1 [facility] Serum or plasma creatinine m easurement (mass/volume)Ordered By: Bert Greenwood on 01-05-2024 Creatinine [Mass/Vol] 0.82 mg/dL 0.55-1.02 [facility] Comment on above: The validity of the calculated GFR & GFRAA in patients over 70 years has not been determined. Clinical correlation is essential. Serum or plasma urea nitroge n measurement (mass/volume)Ordered By: Bert Greenwood on 01-05-2024 Urea nitrogen [Mass/Vol] 23 mg/dL 7-18 [facility] Thin prep Papanicolaou smear with manual screeningOrdered By: Bert Greenwood on 01-05-2024 Thin prep Papanicolaou smear with manual screening 7 5-15 [facility] Total cell countOrdered By: Bert Greenwood on 01-05-2024 Cells counted Molgen (Bld/Tiss) [#] 100 MANUAL DIFF [facility] Bacteria identified Respirat ory culture Nom (Unsp spec)Ordered By: Carin Meraz on 01-04-2024 Respiratory Culture Presumptive C albicans [facility] Gram stain for investigation of transfusion reactionOrdered By: Carin Meraz on 01-04-2024 Microscopic observation Gram stain Nom (Unsp spec) [facility] Automated lymphocyte count a s percentage of total leukocytesOrdered By: Carin Meraz on 01-03-2024 Lymphocytes/100 WBC Auto (Unsp spec) 4.0 % 19-41 [facility] Basophil percentageOrdered B y: Carin Meraz on 01-03-2024 Basophils/100 WBC (Bld) 0.3 % 0-1 [facility] Bilirubin [Mass/Vol] 0.20 mg/dL 0.20-1.00 [facility] Comment on above: For patients on eltr ombopag therapy, use of Dimension [place] TBIL is not recommended. Chloride [Moles/Vol] 105 mmol/L 98-107 [facility] Eosinophils/100 WBC (Bld) 0.2 % 0-5 [facility] Glucose [Mass/Vol] 227 mg/dL 74-106 [facility] Comment on above: Glucose result great er than or equal to 200 mg/dLsuggests DIABETES MELLITUS per A.D.A. criteria. Monocytes/100 WBC (Bld) 2.5 % 0-10 [facility] Potassium [Moles/Vol] 4.3 mmol/L 3.5-5.1 [facility] Protein [Mass/Vol] 7.9 g/dL 6.4-8.2 [facility] Sodium [Moles/Vol] 135 mmol/L 136-145 [facility] Immature granulocytes/100 WB C Auto (Bld)Ordered By: Carin Meraz on 01-03-2024 Immature granulocytes/100 WBC (Bld) 1.700 % 0.0-0.9 [facility] Comment on above: IG% - Immature Granu locytes (promyelocytes, myelocytes and metamyelocytes) > 1% indicates that a LEFT SHIFT is Present. Laboratory - Chemistry and C hemistry - challengeOrdered By: Carin Meraz on 01-03-2024 Albumin/Globulin [Mass ratio] 0.6 {ratio} 0.9-2.4 [facility] ALP [Catalytic activity/Vol] 129 U/L 45-117 [facility] ALT [Catalytic activity/Vol] 12 U/L 13-56 [facility] CO2 [Moles/Vol] 23.0 mmol/L 21.0-32.0 [facility] Globulin (S) [Mass/Vol] 5.0 g/dL 2.2-4.2 [facility] Urea nitrogen/Creatinine [Mass ratio] 14.3 mg/mg 10-20 [facility] Laboratory - Hematology and Cell countsOrdered By: Carin Meraz on 01-03-2024 Nucleated RBC/100 WBC (Bld) [Ratio] 0 % 0-5 [facility] No Panel InformationOrdered By: Carin Meraz on 01-03-2024 Estimated Creatinine Clearance Calc 50.50 ml/min [facility] Estimated GFR (MDRD) Amer 74 mL/min >60 [facility] Comment on above: GFR Calc Estimated GFR (MDRD) Non-Af Amer 61 mL/min >60 [facility] Comment on above: Non- GFR Calc Serum or plasma calcium esthela urement (mass/volume)Ordered By: Carin Meraz on 01-03-2024 Calcium [Mass/Vol] 8.9 mg/dL 8.5-10.1 [facility] Serum or plasma creatinine m easurement (mass/volume)Ordered By: Carin Meraz on 01-03-2024 Creatinine [Mass/Vol] 0.98 mg/dL 0.55-1.02 [facility] Comment on above: The validity of the calculated GFR & GFRAA in patients over 70 years has not been determined. Clinical correlation is essential. Serum or plasma urea nitroge n measurement (mass/volume)Ordered By: Carin Meraz on 01-03-2024 Urea nitrogen [Mass/Vol] 14 mg/dL 7-18 [facility] Thin prep Papanicolaou smear with manual screeningOrdered By: Carin Meraz on 01-03-2024 Thin prep Papanicolaou smear with manual screening 2.9 g/dL 3.2-5.0 [facility] Thin prep Papanicolaou smear with manual screening 12 U/L 15-37 [facility] Thin prep Papanicolaou smear with manual screening 7 5-15 [facility] Absolute lymphocyte countOrd ered By: Víctor Huerta on 01-02-2024 Lymphocytes Auto (Unsp spec) [#/Vol] 2.46 10*3/uL 0.83-4.51 [facility] Activated partial thrombopla stin time (aPTT) in platelet poor plasma by coagulation aOrdered By: Víctor Huerta on 01-02-2024 aPTT Coag (PPP) [Time] 32.2 s 24.1-36.2 [facility] Assessment of wrist artery p atency prior to arterial punctureOrdered By: Víctor Huerta on 01-02-2024 Arterial patency Wrist artery --pre arterial puncture Positive [facility] Automated lymphocyte count a s percentage of total leukocytesOrdered By: Víctor Huerta on 01-02-2024 Lymphocytes/100 WBC Auto (Unsp spec) 9.6 % 19-41 [facility] Base excessOrdered By: Brandon Huerta on 01-02-2024 Base excess Calc (BldV) [Moles/Vol] -4 mmol/L -2-2 [facility] Basophil percentageOrdered B y: Víctor Huerta on 01-02-2024 Lactate [Moles/Vol] 1.2 mmol/L 0.4-2.0 [facility] Basophil percentage 22 mmol/L [facility] Basophils/100 WBC (Bld) 92 % 95-99 [facility] Bilirubin [Mass/Vol] 0.30 mg/dL 0.20-1.00 [facility] Comment on above: For patients on eltr ombopag therapy, use of Dimension [place] TBIL is not recommended. Protein [Mass/Vol] 8.3 g/dL 6.4-8.2 [facility] Basophils/100 WBC (Bld) 0.4 % 0-1 [facility] Chloride [Moles/Vol] 101 mmol/L 98-107 [facility] Eosinophils/100 WBC (Bld) 0.6 % 0-5 [facility] Glucose [Mass/Vol] 126 mg/dL 74-106 [facility] Comment on above: Fasting Glucose resu lt greater than or equal to 126 mg/dL suggests DIABETES MELLITUS per A.D.A. criteria. Hemoglobin (Bld) [Mass/Vol] 12.9 g/dL 12.0-15.0 [facility] Monocytes/100 WBC (Bld) 6.9 % 0-10 [facility] Neutrophils (Bld) [#/Vol] 21.0 10*3/uL 2.0-7.7 [facility] Neutrophils/100 WBC (Bld) 81.7 % 47-70 [facility] Potassium [Moles/Vol] 3.9 mmol/L 3.5-5.1 [facility] Sodium [Moles/Vol] 133 mmol/L 136-145 [facility] WBC (Bld) [#/Vol] 25.7 10*3/uL 4.4-11.0 [facility] Blood manual differential co mment interpretation (narrative result)Ordered By: Víctor Huerta on 01-02-2024 Manual differential comment Geovany (Bld) [Interp] SCANNED [facility] Determination of erythrocyte mean corpuscular volume (MCV)Ordered By: Víctor Huerta on 01-02-2024 MCV (RBC) [Entitic vol] 83.2 fL 81-99 [facility] Direct bilirubinOrdered By: Víctor Huerta on 01-02-2024 Bilirubin.direct [Mass/Vol] 0.13 mg/dL 0.00-0.30 [facility] Erythrocyte distribution wid th ratioOrdered By: Víctor Huerta on 01-02-2024 Erythrocyte distribution width (RBC) [Ratio] 15.6 % 11.6-14.6 [facility] Erythrocyte distribution wid th standard deviationOrdered By: Víctor Huerta on 01-02-2024 Erythrocyte distribution width (RBC) [Entitic vol] 47.1 fL 35.1-43.9 [facility] Hematocrit Auto (Bld) [Volum e fraction]Ordered By: Víctor Huerta on 01-02-2024 Hematocrit (Bld) [Volume fraction] 41.5 % 37-47 [facility] Immature granulocytes/100 WB C Auto (Bld)Ordered By: Víctor Huerta on 01-02-2024 Immature granulocytes/100 WBC (Bld) 0.800 % 0.0-0.9 [facility] Comment on above: IG% - Immature Granu locytes (promyelocytes, myelocytes and metamyelocytes) > 1% indicates that a LEFT SHIFT is Present. Laboratory - Chemistry and C hemistry - challengeOrdered By: Víctor Huerta on 01-02-2024 ALP [Catalytic activity/Vol] 148 U/L 45-117 [facility] ALT [Catalytic activity/Vol] 13 U/L 13-56 [facility] Globulin (S) [Mass/Vol] 5.1 g/dL 2.2-4.2 [facility] Natriuretic peptide B (Bld) [Mass/Vol] 75.1 pg/mL 0-100 [facility] CO2 [Moles/Vol] 25.0 mmol/L 21.0-32.0 [facility] Urea nitrogen/Creatinine [Mass ratio] 14.7 mg/mg 10-20 [facility] Laboratory - CoagulationOrde red By: Víctor Huerta on 01-02-2024 INR Coag (Bld) [Relative time] 1.1 {INR} [facility] PT Coag (PPP) [Time] 14.5 s 11.7-14.9 [facility] Laboratory - Hematology and Cell countsOrdered By: Víctor Huerta on 01-02-2024 MCH (RBC) [Entitic mass] 25.9 pg 27.0-32.0 [facility] MCHC (RBC) [Mass/Vol] 31.1 g/dL 32-36 [facility] Nucleated RBC/100 WBC (Bld) [Ratio] 0 % 0-5 [facility] Platelet mean volume (Bld) [Entitic vol] 9.8 fL 6.2-12.0 [facility] Platelets (Bld) [#/Vol] 311 10*3/uL 150-450 [facility] Laboratory - Microbiology an d Antimicrobial susceptibilityOrdered By: Víctor Huerta on 01-02-2024 Bacteria identified Cx Nom (Bld) No growth in 5 days. [facility] SARS-CoV-2 (COVID-19) RNA KANDY+probe Ql (Unsp spec) [facility] Measurement, pHOrdered By: Tiffani Huerta on 01-02-2024 pH (Unsp spec) 7.42 [pH] 7.35-7.45 [facility] No Panel InformationOrdered By: Víctor Huerta on 01-02-2024 Arterial Blood Partial Pressure CO2 32.2 mmHg 35-45 [facility] Arterial Blood Partial Pressure O2 62 mmHG 75-100 [facility] Blood Gas Bicarbonate Actual 20.7 mmol/L 22-26 [facility] Blood Gas Oxygen Percent 21.0 [facility] Blood Gas Sample Site R Radial [facility] Blood Gas Specimen Type ART [facility] Blood Gas Vent Mode Not entered [facility] Oxygen Delivery Device Room Air [facility] Estimated Creatinine Clearance Calc 51.55 ml/min [facility] Estimated GFR (MDRD) Amer 77 mL/min >60 [facility] Comment on above: GFR Calc Estimated GFR (MDRD) Non-Af Amer 63 mL/min >60 [facility] Comment on above: Non- GFR Calc Troponin I High Sensitivity 13 pg/mL 3.0-54.0 [facility] Comment on above: Please Note: [place] t Units and Gender Specific Reference Ranges. For more information see Policy Stat Procedure [place] High Sensitivity Troponin (TNIH) and attachments. RBC Auto (Bld) [#/Vol]Ordere d By: Víctor Huerta on 01-02-2024 RBC (Bld) [#/Vol] 4.99 10*6/uL 4.2-5.4 [facility] Review by pathologistOrdered By: Víctor Huerta on 01-02-2024 Pathologist review Geovany (Unsp spec) [Interp] January [facility] Serum or plasma calcium esthela urement (mass/volume)Ordered By: Víctor Huerta on 01-02-2024 Calcium [Mass/Vol] 8.9 mg/dL 8.5-10.1 [facility] Serum or plasma creatinine m easurement (mass/volume)Ordered By: Víctor Huerta on 01-02-2024 Creatinine [Mass/Vol] 0.96 mg/dL 0.55-1.02 [facility] Comment on above: The validity of the calculated GFR & GFRAA in patients over 70 years has not been determined. Clinical correlation is essential. Serum or plasma urea nitroge n measurement (mass/volume)Ordered By: Víctor Huerta on 01-02-2024 Urea nitrogen [Mass/Vol] 14 mg/dL 7-18 [facility] Serum procalcitonin measurem entOrdered By: Carin Meraz on 01-02-2024 Procalcitonin [Mass/Vol] 0.11 ng/mL 0.00-0.09 [facility] Comment on above: A procalcitonin (PCT [...] smear with manual screening 3.2 g/dL 3.2-5.0 [facility] Thin prep Papanicolaou smear with manual screening 14 U/L 15-37 [facility] Thin prep Papanicolaou smear with manual screening 7 5-15 [facility] Influenza virus A and B and SARS-CoV-2 (COVID-19) Ag panel - Upper respiratory specimOrdered By: Tasneem Dykes on 07-08-2023 SARS-CoV-2 (COVID-19) RNA KANDY+probe Ql (Resp) [facility] Absolute lymphocyte countOrd ered By: ED PROVIDER on 06-02-2023 Lymphocytes Auto (Unsp spec) [#/Vol] 2.95 10*3/uL 0.83-4.51 [facility] Basophil percentageOrdered B y: ED PROVIDER on 06-02-2023 Basophils/100 WBC (Bld) 1.0 % 0-1 [facility] Chloride [Moles/Vol] 105 mmol/L 98-107 [facility] Eosinophils/100 WBC (Bld) 3.6 % 0-5 [facility] Glucose [Mass/Vol] 117 mg/dL 74-106 [facility] Comment on above: Fasting Glucose resu lt from 100 to 125 mg/dL suggests IMPAIRED HOMEOSTASIS per A.D.A. criteria. Neutrophils (Bld) [#/Vol] 7.4 10*3/uL 2.0-7.7 [facility] Neutrophils/100 WBC (Bld) 63.1 % 47-70 [facility] Potassium [Moles/Vol] 4.2 mmol/L 3.5-5.1 [facility] Sodium [Moles/Vol] 141 mmol/L 136-145 [facility] WBC (Bld) [#/Vol] 11.7 10*3/uL 4.4-11.0 [facility] Blood erythrocytes count (nu mber/volume)Ordered By: ED PROVIDER on 06-02-2023 RBC (Bld) [#/Vol] 4.88 10*6/uL 4.2-5.4 [facility] Blood hemoglobin measurement (mass/volume)Ordered By: ED PROVIDER on 06-02-2023 Hemoglobin (Bld) [Mass/Vol] 13.3 g/dL 12.0-15.0 [facility] Blood lymphocytes/100 leukoc ytesOrdered By: ED PROVIDER on 06-02-2023 Lymphocytes/100 WBC (Bld) 25.1 % 19-41 [facility] Blood monocytes/100 leukocyt esOrdered By: ED PROVIDER on 06-02-2023 Monocytes/100 WBC (Bld) 6.4 % 0-10 [facility] Blood platelet mean volumeOr dered By: ED PROVIDER on 06-02-2023 Platelet mean volume (Bld) [Entitic vol] 10.1 fL 6.2-12.0 [facility] Determination of erythrocyte mean corpuscular volume (MCV)Ordered By: ED PROVIDER on 06-02-2023 MCV (RBC) [Entitic vol] 83.2 fL 81-99 [facility] Hematocrit Auto (Bld) [Volum e fraction]Ordered By: ED PROVIDER on 06-02-2023 Hematocrit (Bld) [Volume fraction] 40.6 % 37-47 [facility] Influenza virus A and B and SARS-CoV-2 (COVID-19) Ag panel - Upper respiratory specimOrdered By: Levar Handy on 06-02-2023 SARS-CoV-2 (COVID-19) RNA KANDY+probe Ql (Resp) [facility] Laboratory - Chemistry and C hemistry - challengeOrdered By: ED PROVIDER on 06-02-2023 CO2 [Moles/Vol] 27.0 mmol/L 21.0-32.0 [facility] Urea nitrogen/Creatinine [Mass ratio] 6.9 mg/mg 10-20 [facility] Laboratory - Hematology and Cell countsOrdered By: ED PROVIDER on 06-02-2023 Erythrocyte distribution width (RBC) [Entitic vol] 46.1 fL 35.1-43.9 [facility] Erythrocyte distribution width (RBC) [Ratio] 15.3 % 11.6-14.6 [facility] Immature granulocytes/100 WBC (Bld) 0.800 % 0.0-0.9 [facility] Comment on above: IG% - Immature Granu locytes (promyelocytes, myelocytes and metamyelocytes) > 1% indicates that a LEFT SHIFT is Present. MCH (RBC) [Entitic mass] 27.3 pg 27.0-32.0 [facility] Nucleated RBC/100 WBC (Bld) [Ratio] 0 % 0-5 [facility] MCHC Auto (RBC) [Mass/Vol]Or dered By: ED PROVIDER on 06-02-2023 MCHC (RBC) [Mass/Vol] 32.8 g/dL 32-36 [facility] No Panel InformationOrdered By: ED PROVIDER on 06-02-2023 Estimated Creatinine Clearance Calc 56.88 ml/min [facility] Estimated GFR (MDRD) Amer 86 mL/min >60 [facility] Comment on above: GFR Calc Estimated GFR (MDRD) Non-Af Amer 71 mL/min >60 [facility] Comment on above: Non- GFR Calc Platelets bldOrdered By: ED PROVIDER on 06-02-2023 Platelets (Bld) [#/Vol] 361 10*3/uL 150-450 [facility] Serum or plasma calcium esthela urement (mass/volume)Ordered By: ED PROVIDER on 06-02-2023 Calcium [Mass/Vol] 9.3 mg/dL 8.5-10.1 [facility] Serum or plasma creatinine m easurement (mass/volume)Ordered By: ED PROVIDER on 06-02-2023 Creatinine [Mass/Vol] 0.87 mg/dL 0.55-1.02 [facility] Comment on above: The validity of the calculated GFR & GFRAA in patients over 70 years has not been determined. Clinical correlation is essential. Serum or plasma urea nitroge n measurement (mass/volume)Ordered By: ED PROVIDER on 06-02-2023 Urea nitrogen [Mass/Vol] 6 mg/dL 7-18 [facility] Thin prep Papanicolaou smear with manual screeningOrdered By: ED PROVIDER on 06-02-2023 Thin prep Papanicolaou smear with manual screening 9 5-15 [facility] Ophthalmic Eye [facility] 2022 Ophthalmic Eye Exam DOCUMENT REVIEWED BY : Yrn Ortega DOCUMENT SIGNED ELECTRONICALLY BY Yrn Ortega ON 12/23/2022 09:55:17 PM [id number] [place], [address] THIS DOCUMENT WAS CREATED ON: 12/22/2022 02:52:23 PM BY: MARCELLA Hutchinson [id number] Exam Date: Thursday, December 22, 2022 PATIENT [...] to be resolving - Dr Jurado in [facility], No Mri done recently Context/Onset-several weeks ago, Location-right eye, HISTORY OF PRESENT ILLNESS: PROBLEM: Pt sts orbital swelling seen in ED and admission and resolved with antibiotics PT sts has reoccurrance about 3 weeks ago with swelling above right eye and currently on oral prednisone 20mg and was on oral antibiotics and seems to be resolving - Dr Jurado in [facility] CONTEXT/ONSET: several weeks ago LOCATION: right [...] [Reported] ARIPiprazole TABS - Tablet, [Reported] Creon [id number] UNIT Oral Capsule Delayed Release Particles - [...] CUP TO DISC: 0.4 0.4 OPTIC DISC: Lesage and sharp Lesage and sharp VITREOUS: Clear Clear Impression 1 [...] biopsy. - will inform Dr. Jurado ([facility]) [address] [place] [id number], phone [phone] fax [phone] - consider further imaging if there is another recurrence of swelling f/u 10 weeks Yrn Ortega DOCUMENT CREATE DATE: 12/22/2022 02:52:23 PM Received for:Yrn Ortega MD Dec 23 2022 9:55PM Eastern Standard Time Normal [facility] XR Lumbar spine 3 Viewson IMPRESSION: Lumbar s pine degenerative changes as described above. Photo Optics Technician: BABATUNDE Transcribe Date/Time: Nov 26 2022 2:44P Dictated by : CHELA GAMING MD This examination was interpreted and the report reviewed and electronically signed by: CHELA GAMING MD on Nov 26 2022 2:59PM [facility] DIVISION OF RADIOLOGY * * *Final [...] spine are presented. FINDINGS: There are five [id number] lumbar vertebrae. No acute fracture or subluxations [...] spine are presented. FINDINGS: There are five [id number]-[id number] lumbar vertebrae. No acute fracture or subluxations are noted. The disc spaces are well preserved. There is minimal osteophyte formation. Kissing spine seen on lateral view. Others: There are vascular calcifications. IMPRESSION IMPRESSION: Lumbar spine degenerative changes as described above. Photo Optics Technician: ROBERTS CHAPELTova Transcribe Date/Time: Nov 26 2022 2:44P Dictated by : CHELA GAMING MD This examination was interpreted and the report reviewed and electronically signed by: CHELA GAMING MD on Nov 26 2022 2:59PM EST [facility] XR Lumbar spine 3 ViewsOrder ed By: Ccf Provider on 11-26-[address] [facility] XR Lumbar spine 3 Viewson Radiology Study observation (narrative) [facility] XR CHEST 2V FRONTAL/LATon [facility] XR Chest PA and Lateralon IMPRESSION: No acute radiographic abnormality. Photo Optics Technician: BABATUNDE Transcribe Date/Time: Nov 11 2022 10:22P Dictated by : NANETTE OGDEN MD This examination was interpreted and the report reviewed and electronically signed by: NANETTE OGDEN MD on Nov 11 2022 10:23PM [facility] DIVISION OF RADIOLOGY * * *Final [...] Unremarkable. DIVISION OF RADIOLOGY Provider, Jacques zamorano Felt - 11/11/2022 * * *Final Report* * [...] Unremarkable. IMPRESSION IMPRESSION: No acute radiographic abnormality. Photo Optics Technician: ROBERTS CHAPELTova Transcribe Date/Time: Nov 11 2022 10:22P Dictated by : NANETTE OGDEN MD This examination was interpreted and the report reviewed and electronically signed by: NANETTE OGDEN MD on Nov 11 2022 10:23PM EST [facility] Radiology Study observation (narrative) [facility] XR Chest PA and LateralOrder ed By: Ccf Provider on 11-11-[address] [facility] Absolute lymphocyte countOrd ered By: Dr. Bonilla on 11-07-2022 Lymphocytes Auto (Unsp spec) [#/Vol] 2.70 10*3/uL 0.83-4.51 [facility] Basophil percentageOrdered B y: Dr. Bonilla on 11-07-2022 Basophils/100 WBC (Bld) 0.4 % 0-1 [facility] Chloride [Moles/Vol] 99 mmol/L 98-[address] [facility] [address] [facility] Eosinophils/100 WBC (Bld) 4.1 % 0-5 [facility] Glucose [Mass/Vol] 90 mg/dL 74-106 [facility] Neutrophils (Bld) [#/Vol] 8.0 10*3/uL 2.0-7.7 [facility] Neutrophils/100 WBC (Bld) 59.2 % 47-70 [facility] Potassium [Moles/Vol] 3.0 mmol/L 3.5-5.1 [facility] Sodium [Moles/Vol] 141 mmol/L 136-145 [facility] WBC (Bld) [#/Vol] 13.6 10*3/uL 4.4-11.0 [facility] Blood erythrocytes count (nu mber/volume)Ordered By: Dr. Bonilla on 11-07-2022 RBC (Bld) [#/Vol] 3.28 10*6/uL 4.2-5.4 [facility] Blood hemoglobin measurement (mass/volume)Ordered By: Dr. Bonilla on 11-07-2022 Hemoglobin (Bld) [Mass/Vol] 8.8 g/dL 12.0-15.0 [facility] Blood lymphocytes/100 leukoc ytesOrdered By: Dr. Bonilla on 11-07-2022 Lymphocytes/100 WBC (Bld) 19.9 % 19-41 [facility] Blood manual differential co mment interpretation (narrative result)Ordered By: Dr. Bonilla on 11-07-2022 Manual differential comment Geovany (Bld) [Interp] SCANNED [facility] Blood monocytes/100 leukocyt esOrdered By: Dr. Bonilla on 11-07-2022 Monocytes/100 WBC (Bld) 13.8 % 0-10 [facility] Blood platelet mean volumeOr dered By: Dr. Bonilla on 11-07-2022 Platelet mean volume (Bld) [Entitic vol] 9.9 fL 6.2-12.0 [facility] Determination of erythrocyte mean corpuscular volume (MCV)Ordered By: Dr. Bonilla on 11-07-2022 MCV (RBC) [Entitic vol] 83.5 fL 81-99 [facility] Hematocrit Auto (Bld) [Volum e fraction]Ordered By: Dr. Bonilla on 11-07-2022 Hematocrit (Bld) [Volume fraction] 27.4 % 37-47 [facility] Laboratory - Chemistry and C hemistry - challengeOrdered By: Dr. Bonilla on 11-07-2022 CO2 [Moles/Vol] 36.0 mmol/L 21.0-32.0 [facility] Urea nitrogen/Creatinine [Mass ratio] 15.6 mg/mg 10-20 [facility] Laboratory - Hematology and Cell countsOrdered By: Dr. Bonilla on 11-07-2022 Erythrocyte distribution width (RBC) [Entitic vol] 45.4 fL 35.1-43.9 [facility] Erythrocyte distribution width (RBC) [Ratio] 14.8 % 11.6-14.6 [facility] Immature granulocytes/100 WBC (Bld) 2.600 % 0.0-0.9 [facility] Comment on above: IG% - Immature Granu locytes (promyelocytes, myelocytes and metamyelocytes) > 1% indicates that a LEFT SHIFT is Present. MCH (RBC) [Entitic mass] 26.8 pg 27.0-32.0 [facility] Nucleated RBC/100 WBC (Bld) [Ratio] 0 % 0-5 [facility] MCHC Auto (RBC) [Mass/Vol]Or dered By: Dr. Bonilla on 11-07-2022 MCHC (RBC) [Mass/Vol] 32.1 g/dL 32-36 [facility] No Panel InformationOrdered By: Dr. Bonilla on 11-07-2022 Estimated Creatinine Clearance Calc 52.20 ml/min [facility] Estimated GFR (MDRD) Amer 76 mL/min >60 [facility] Comment on above: GFR Calc Estimated GFR (MDRD) Non-Af Amer 63 mL/min >60 [facility] Comment on above: Non- GFR Calc Platelets bldOrdered By: Dr. Bonilla on 11-07-2022 Platelets (Bld) [#/Vol] 395 10*3/uL 150-450 [facility] Review by pathologistOrdered By: Dr. Bonilla on 11-07-2022 Pathologist review Geovany (Unsp spec) [Interp] Reviewed [facility] Comment on above: Previous reported re sult: Tiesha gotti Edited by: RGOOD on 11/07/22:1323Leukocytosis with Neutrophilic left shift. Normocytic anemia.Clinical correlation necessary.Javier Best M.D. 11/07/22 AMENDED REPORT 11/07/22 1323 PATH REV previously reported as: Tiesha gotti Serum or plasma calcium esthela urement (mass/volume)Ordered By: Dr. Bonilla on 11-07-2022 Calcium [Mass/Vol] 8.4 mg/dL 8.5-10.1 [facility] Serum or plasma creatinine m easurement (mass/volume)Ordered By: Dr. Bonilla on 11-07-2022 Creatinine [Mass/Vol] 0.96 mg/dL 0.55-1.02 [facility] Comment on above: The validity of the calculated GFR & GFRAA in patients over 70 years has not been determined. Clinical correlation is essential. Serum or plasma urea nitroge n measurement (mass/volume)Ordered By: Dr. Bonilla on 11-07-2022 Urea nitrogen [Mass/Vol] 15 mg/dL 7-18 [facility] Thin prep Papanicolaou smear with manual screeningOrdered By: Dr. Bonilla on 11-07-2022 Thin prep Papanicolaou smear with manual screening 6 5-15 [facility] Laboratory - Hematology and Cell countsOrdered By: Dr. Bonilla on 11-06-2022 Anisocytosis Ql (Bld) 1+ [facility] Assessment of wrist artery p atency prior to arterial punctureOrdered By: Dr. Bonilla on 11-05-2022 Arterial patency Wrist artery --pre arterial puncture N/A [facility] Base excessOrdered By: Dr. Melchor camargo on 11-05-2022 Base excess Calc (BldV) [Moles/Vol] -10 mmol/L -2-2 [facility] Basophil percentageOrdered B y: Dr. Bonilla on 11-05-2022 Basophil percentage 17.6 mmol/L 22-26 [facility] Basophils/100 WBC (Bld) 97 % 95-99 [facility] CO2 (BldA) [Partial pressure ]Ordered By: Dr. Bonilla on 11-05-2022 CO2 (Bld) [Partial pressure] 44.1 mm[Hg] 35-45 [facility] Laboratory - Chemistry and C hemistry - challengeOrdered By: Dr. Sebastian on 11-05-2022 Lipase [Catalytic activity/Vol] 112 U/L 73-393 [facility] Laboratory - CoagulationOrde red By: Dr. Bonilla on 11-05-2022 aPTT Coag (Bld) [Time] 68.4 s 24.1-36.2 [facility] No Panel InformationOrdered By: Dr. Bonilla on 11-05-2022 Bld Gas Crit Called To/Read Back By Yes [facility] Blood Gas Liter Flow 3.0 /min [facility] Blood Gas Notified Whom Dr Sebastian [facility] Blood Gas Sample Site L Radial [facility] Blood Gas Specimen Type ART [facility] Blood Gas Total CO2 19 mmol/L [facility] Oxygen Delivery Device Cannula [facility] Oxygen (BldA) [Partial press ure]Ordered By: Dr. Bonilla on 11-05-2022 Oxygen (Bld) [Partial pressure] 107 mmHG 75-100 [facility] Serum or plasma vancomycin m easurement (mass/volume)Ordered By: Dr. Bonilla on 11-05-2022 Vancomycin [Mass/Vol] 18.2 ug/mL 0.0-15.0 [facility] Comment on above: VANCOMYCIN STANDARD DRUG THERAPY: CRITICAL VALUE IS > 15.0 mg/L VANCOMYCIN HIGH INTENSITY THERAPY: CRITICAL VALUE IS > 20.0 mg/L PLEASE CONTACT PHARMACY SERVICES (#5255) FOR INTERPRETATIONOF RESULTS. THIS RESULT DOES NOT REPRESENT A PEAK OR TROUGHLEVEL FOR THIS DRUG. pH measurementOrdered By: Dr Max Bonilla on 11-05-2022 pH (Unsp spec) 7.21 [pH] 7.35-7.45 [facility] Basophil percentageOrdered B y: Dr. Iverson on 11-04-2022 Basophil percentage 0-5 SEEN /hpf 0-5 [facility] Basophil percentageOrdered B y: Dr. Bonilla on 11-04-2022 Lactate [Moles/Vol] 1.4 mmol/L 0.4-2.0 [facility] Bilirubin Test strip Ql (U)O rdered By: Dr. Iverson on 11-04-2022 Bilirubin Ql (U) Negative Negative [facility] INR in Blood by Coagulation assayOrdered By: Dr. Bonilla on 11-04-2022 INR Coag (Bld) [Relative time] 1.2 {INR} [facility] Ketones Test strip Ql (U)Ord ered By: Dr. Iverson on 11-04-2022 Ketones Ql (U) Negative Negative [facility] Laboratory - CoagulationOrde red By: Dr. Bonilla on 11-04-2022 PT Coag (PPP) [Time] 14.6 s 11.7-14.9 [facility] Mucus LM Ql (Urine sed)Order ed By: Dr. Iverson on 11-04-2022 Mucus Ql (Urine sed) 0 SEEN /hpf [facility] Nitrite Test strip Ql (U)Ord ered By: Dr. Iverson on 11-04-2022 Nitrite Ql (U) Negative Negative [facility] No Panel InformationOrdered By: Dr. Bonilla on 11-04-2022 Blood Gas Oxygen Percent 30 [facility] Blood Gas Respiration Rate 12 [facility] Urine Urea Nitrogen 302 mg/dL NO RANGE EST. [facility] Protein Test strip Ql (U)Ord ered By: Dr. Iverson on 11-04-2022 Protein Ql (U) 30 mg/dl Negative [facility] Squamous epithelial cells de tection in urine sediment by light microscopyOrdered By: Dr. Iverson on 11-04-2022 Epithelial cells.squamous LM Ql (Urine sed) 0 SEEN /hpf 5-10 [facility] Urine blood detectionOrdered By: Dr. Iverson on 11-04-2022 RBC Ql (U) 150 /ul Negative [facility] RBC Ql (U) 10-25 SEEN /hpf 0-5 [facility] Urine clarityOrdered By: Dr. Iverson on 11-04-2022 Clarity (U) Clear Clear [facility] Urine color determinationOrd ered By: Dr. Iverson on 11-04-2022 Color (U) Yellow Yellow [facility] Urine creatinine measurement (mass/volume)Ordered By: Dr. Bonilla on 11-04-2022 Creatinine (U) [Mass/Vol] 33.40 mg/dL NO RANGE EST. [facility] Urine glucose detectionOrder ed By: Dr. Iverson on 11-04-2022 Glucose Ql (U) 50 mg/dl Normal [facility] Urine leukocyte esterase det ection by dipstickOrdered By: Dr. Iverson on 11-04-2022 Leukocyte esterase Test strip Ql (U) Negative Negative [facility] Urine pHOrdered By: Dr. Feng sanders on 11-04-2022 pH (U) 6.0 [pH] 5.0 - 8.0 [facility] Urine sediment bacteria coun t by microscopy (number/high power field)Ordered By: Dr. Iverson on 11-04-2022 Bacteria LM.HPF (Urine sed) [#/Area] RARE /hpf None Seen [facility] Urine specific gravity measu rementOrdered By: Dr. Iverson on 11-04-2022 Specific gravity (U) [Rel density] 1.015 1.002-1.030 [facility] Urobilinogen Auto test strip Ql (U)Ordered By: Dr. Iverson on 11-04-2022 Urobilinogen Ql (U) Normal mg/dl Normal [facility] Basophil percentageOrdered B y: Dr. Ross on 11-03-2022 Bilirubin [Mass/Vol] 0.20 mg/dL 0.20-1.00 [facility] Comment on above: For patients on eltr ombopag therapy, use of Dimension [place] TBIL is not recommended. Protein [Mass/Vol] 5.7 g/dL 6.4-8.2 [facility] Laboratory - Chemistry and C hemistry - challengeOrdered By: Dr. Ross on 11-03-2022 ALP [Catalytic activity/Vol] 97 U/L 45-117 [facility] ALT [Catalytic activity/Vol] 31 U/L 13-56 [facility] Globulin (S) [Mass/Vol] 3.5 g/dL 2.2-4.2 [facility] Laboratory - Microbiology an d Antimicrobial susceptibilityOrdered By: Dr. Ross on 11-03-2022 Respiratory pathogens DNA and RNA 12b panel KANDY+probe (Unsp spec) [facility] Serum or plasma albumin esthela urement (mass/volume)Ordered By: Dr. Ross on 11-03-2022 Albumin [Mass/Vol] 2.2 g/dL 3.2-5.0 [facility] Serum or plasma albumin/glob ulin mass ratioOrdered By: Dr. Ross on 11-03-2022 Albumin/Globulin [Mass ratio] 0.6 {ratio} 0.9-2.4 [facility] Thin prep Papanicolaou smear with manual screeningOrdered By: Dr. Ross on 11-03-2022 Thin prep Papanicolaou smear with manual screening 36 U/L 15-37 [facility] No Panel InformationOrdered By: Dr. Ochoa on 11-02-2022 Bedside Blood Gas PEEP 8 [facility] Stool Calprotectin 118 ug/g 0-120 [facility] Comment on above: Concentration Interp retation Follow-Up<16 - 50 ug/g Normal None>50 -120 ug/g Borderline Re-evaluate in 4-6 weeks >120 ug/g Abnormal Repeat as clinically indicated No Panel InformationOrdered By: Dr. Fatima on 11-02-2022 Troponin I High Sensitivity 92 pg/mL 3.0-54.0 [facility] Comment on above: Please Note: [place] t Units and Gender Specific Reference Ranges. For more information see Policy Stat Procedure [place] High Sensitivity Troponin (TNIH) and attachments. Stool pHOrdered By: Dr. Pj smallwood on 11-02-2022 pH (Stl) 6.0 7.0-7.5 [facility] Comment on above: Performed at: [address] [id number] Director: Marvin Quintanilla MD, Phone: [phone] at: [facility] [id number] Director: Tj Mendoza PhD, Phone: [phone] Chart Updateon 11-01-2022 Chart Update Chart Update Received page to [facility] clinic pager that Pt is calling for internal medicine. Reviewed chart and noted pt was not a [facility] clinic patient but had recently been D/C from [facility]. Attempted to call phone answering service but was unable to connect with the community engagement manager who processed the call for more information. Called pt and informed her that I was a resident with the [facility] clinic and her message was likely sent to me in error, she was concerned that she had not been urinating much recently despite drinking a significant amount of water (estimated 12 12 oz bottles since last night). She further stated she had called her PCP office today regarding this issue and reached an on-call [employer]STITCHER [employer]IGZAG who recommended she present to the ED [...] Nov 01 2022 11:56AM EST (Author) Normal Revegy Telephone Encounteron 2022 [employer] Authentication Interface Message Text Situation: Patient states she was prescribed medication by and medication making her mouth dry (Patient not established with PCP at this time) Background: see above Assessment: Advised patient to reached out to prescribing provider- Recommendation: Verbalized understanding-Provided number to Normal [employer] ANCA-ASSOCIATED VASCULITIS P ROFILE [ANCA,MPO,PR3]on 10-30-2022 ANCA IFA PATTERN Not detected Normal None Detected [facility] Comment on above: Result Comment: INTE RPRETIVE INFORMATION: ANCA IFA Pattern Neutrophil Cytoplasmic Antibodies (C-ANCA = granular cytoplasmic staining, P-ANCA = perinuclear staining) are found in the serum of over 90 percent of patients with certain necrotizing systemic vasculitides, and usually in less than 5 percent of patients with collagen vascular disease or arthritis. Performed By: [facility] [address] [place] [address] Optician Apprentice Dispensing: Kyle Hyatt MD, PhD Performed By: #### A [facility] #### [facility] [address] [place] [id number] ANCA IFA TITER <1:20 Normal <1:20 [facility] Comment on above: Performed By: #### A [place] #### [facility] [employer] [facility] [facility] [address] [place] [address] MYELOPEROXIDASE AB 0 AU/mL Normal 0-19 [facility] Comment on above: Result Comment: INTE RPRETIVE INFORMATION: Myeloperoxidase Abs, IgG 19 AU/mL or Less ......... Negative 20-25 AU/mL .............. Equivocal 26 AU/mL or Greater ...... Positive Approximately 90% of patients with a P-ANCA pattern by IFA have antibodies specific for MPO. Performed By: #### A NCMP #### [facility] [address] [place] [address] PROTEINASE-3 0 AU/mL Normal 0-19 [facility] Comment on above: Result Comment: INTE RPRETIVE INFORMATION: Serine Proteinase 3, IgG 19 AU/mL or Less ........ Negative 20-25 AU/mL ............. Equivocal 26 AU/mL or Greater ..... Positive Approximately 85% of patients with a C-ANCA pattern by IFA have antibodies specific for PR3. Performed By: #### A NCMP #### [facility] [address] [place] [address] Clinical Event Note-Ophthalm ology follow upon 10-29-2022 [...] Updated: 30-Oct-2022 12:22 by Yrn Ortega) Normal [facility] LYSOZYMEon 10-29-2022 LYSOZYME 9.0 ug/mL Normal 2.5-12.9 [facility] Comment on above: Result Comment: Ef fective [...] 9.5 Performed By: #### C MP #### [facility] [address] [place] [address] RENAL FUNCTION PANELon 10-29 Albumin [Mass/Vol] 3.8 g/dL Normal 3.4 - 5.0 [facility] Comment on above: Performed By: #### R ENAL #### [facility] [address] [place] [address] Anion gap [Moles/Vol] 15 mmol/L Normal 10 - 20 [facility] Comment on above: Performed By: #### R ENAL #### [facility] [address] [place] [address] Calcium [Mass/Vol] 9.5 mg/dL Normal 8.6 - 10.6 [facility] Comment on above: Performed By: #### R ENAL #### [facility] [address] [place] [address] Chloride [Moles/Vol] 100 mmol/L Normal 98 - 107 [facility] Comment on above: Performed By: #### R ENAL #### [facility] [address] [place] [address] Creatinine [Mass/Vol] 1.40 mg/dL High 0.50 - 1.05 [facility] Comment on above: Performed By: #### R ENAL #### [facility] [address] [place] [address] GFR/1.73 sq M.predicted among non-blacks MDRD (S/P/Bld) [Vol rate/Area] 43 mL/min/{1.73_m2} Abnormal >90 [facility] Comment on above: Result Comment: CALC ULATIONS OF ESTIMATED GFR ARE PERFORMED USING THE 2020 CKD-EPI STUDY REFIT EQUATION WITHOUT THE RACE VARIABLE FOR THE IDMS-TRACEABLE CREATININE METHODS. https://jasn.asnjournals.org/content//ASN87994 54610 Performed By: #### R ENAL #### [facility] [address] [place] [address] Glucose [Mass/Vol] 109 mg/dL High 74 - 99 [facility] Comment on above: Performed By: #### R ENAL #### [facility] [address] [place] [address] HCO3 (Bld) [Moles/Vol] 23 mmol/L Normal 21 - 32 [facility] Comment on above: Performed By: #### R ENAL #### [facility] [address] [place] [address] Phosphate [Mass/Vol] 4.4 mg/dL Normal 2.5 - 4.9 [facility] Comment on above: Result Comment: The performance characteristics of phosphorus testing in heparinized plasma have been validated by the individual laboratory site where testing is performed. Testing on heparinized plasma is not approved by the FDA; however, such approval is not necessary. Performed By: #### R ENAL #### [facility] [address] [place] [address] Potassium [Moles/Vol] 3.4 mmol/L Low 3.5 - 5.3 [facility] Comment on above: Performed By: #### R ENAL #### [facility] [address] [place] [address] Sodium [Moles/Vol] 135 mmol/L Low 136 - 145 [facility] Comment on above: Performed By: #### R ENAL #### [facility] [address] [place] [address] Urea nitrogen [Mass/Vol] 11 mg/dL Normal 6 - 23 [facility] Comment on above: Performed By: #### R ENAL #### [facility] [address] [place] [address] Renal Function Panelon 10-29 Albumin BCP dye [Mass/Vol] 3.8 g/dL 3.4 - 5.0 [facility] Work Phone: Anion gap [Moles/Vol] 15 mmol/L 10 - 20 [facility] Work Phone: [phone] Calcium [Mass/Vol] 9.5 mg/dL 8.6 - 10.6 [facility] Work Phone: [phone] Chloride [Moles/Vol] 100 mmol/L 98 - 107 [facility] Work Phone: [phone] CO2 [Moles/Vol] 23 mmol/L 21 - 32 [facility] Work Phone: [phone] Creatinine [Mass/Vol] 1.40 mg/dL above high threshold See Below -[facility] Work Phone: [phone] Comment on above: Reference Range: 0.5 0 - 1.05 Glucose [Mass/Vol] 109 mg/dL above high threshold 74 - 99 [facility] Work Phone: [phone] Phosphate [Mass/Vol] 4.4 mg/dL 2.5 - 4.9 [facility] Work Phone: [phone] Comment on above: The performance bruce acteristics of phosphorus testing in heparinized plasma have been validated by the individual laboratory site where testing is performed. Testing on heparinized plasma is not approved by the FDA; however, such approval is not necessary. Potassium [Moles/Vol] 3.4 mmol/L below low threshold 3.5 - 5.3 [facility] Work Phone: [phone] Sodium [Moles/Vol] 135 mmol/L below low threshold 136 - 145 [facility] Work Phone: [phone] Urea nitrogen [Mass/Vol] 11 mg/dL 6 - 23 [facility] Work Phone: [phone] Renal Function Panel 43 {mL/min/1.73m2} Abnormal >90 [facility] Work Phone: [phone] Comment on above: CALCULATIONS OF PAVAN MATED GFR ARE PERFORMED USING THE 2020 CKD-EPI STUDY REFIT EQUATION WITHOUT THE RACE VARIABLE FOR THE IDMS-TRACEABLE CREATININE METHODS.https://jasn.asnjournals.org/content/early//A SN.3583914270 BLOOD CULTURE, BACTERIALon 0 10-28-2022 BLOOD CULTURE, BACTERIAL PATIENT: GRACIE BANUELOS LOCATION: L020 L20 BILL#: [id number] : 61 AGE: SEX: F ORDERED BY: JUSTYN RICHTER SOURCE: Blood COLLECTED: 10/28/22 12:04 ANTIBIOTICS AT DEB.: RECEIVED : 10/28/22 16:14 SITE: PERIPHERAL R E S U L T S BLOOD CULTURE, BACTERIAL FINAL 11/01/22 17:42 No Growth at 1 days No Growth at 2 days No Growth at 3 days NO GROWTH at 4 days - FINAL REPORT Normal [facility] Comment on above: Performed By: #### B LDC #### [facility] [address] [place] [address] BLOOD CULTURE, BACTERIAL PATIENT: GRACIE BANUELOS LOCATION: 02[facility] BILL#: [id number] : 61 AGE: SEX: F ORDERED BY: JUSTYN RICHTER SOURCE: Blood COLLECTED: 10/28/22 12:04 ANTIBIOTICS AT DEB.: RECEIVED : 10/28/22 16:14 SITE: PERIPHERAL R E S U L T S BLOOD CULTURE, BACTERIAL FINAL 11/01/22 17:42 No Growth at 1 days No Growth at 2 days No Growth at 3 days NO GROWTH at 4 days - FINAL REPORT Normal [facility] Comment on above: Performed By: #### C MP #### [facility] [address] [place] [address] CBC AND DIFFERENTIALon 10-28 % AUTOMATED IMMATURE GRAN 0.9 % Normal 0.0 - 0.9 [facility] Comment on above: Result Comment: Iram ture Granulocyte Count (IG) includes promyelocytes, myelocytes and metamyelocytes but does not include bands. Percent differential counts (%) should be interpreted in the context of the absolute cell counts (cells/L). Performed By: #### C BCDF #### [facility] [address] [place] [address] Basophils (Bld) [#/Vol] 0.04 10*3/uL Normal 0.00 - 0.10 [facility] Comment on above: Performed By: #### C BCDF #### [facility] [address] [place] [address] Basophils/100 WBC (Bld) 0.5 % Normal 0.0 - 2.0 [facility] Comment on above: Performed By: #### C BCDF #### [facility] [address] [place] [address] Eosinophils (Bld) [#/Vol] 0.45 10*3/uL Normal 0.00 - 0.70 [facility] Comment on above: Performed By: #### C BCDF #### [facility] [address] [place] [address] Eosinophils/100 WBC (Bld) 5.5 % Normal 0.0 - 6.0 [facility] Comment on above: Performed By: #### C BCDF #### [facility] [address] [place] [address] Erythrocyte distribution width (RBC) [Ratio] 13.5 % Normal 11.5 - 14.5 [facility] Comment on above: Performed By: #### C BCDF #### [facility] [address] [place] [address] Hematocrit (Bld) [Volume fraction] 35.2 % Low 36.0 - 46.0 [facility] Comment on above: Performed By: #### C BCDF #### [facility] [address] [place] [address] Hemoglobin (Bld) [Mass/Vol] 11.2 g/dL Low 12.0 - 16.0 [facility] Comment on above: Performed By: #### C BCDF #### [facility] [address] [place] [address] Lymphocytes (Bld) [#/Vol] 0.72 10*3/uL Low 1.20 - 4.80 [facility] Comment on above: Performed By: #### C BCDF #### [facility] [address] [place] [address] Lymphocytes/100 WBC (Bld) 8.7 % Normal 13.0 - 44.0 [facility] Comment on above: Performed By: #### C BCDF #### [facility] [address] [place] [address] MCHC (RBC) [Mass/Vol] 31.8 g/dL Low 32.0 - 36.0 [facility] Comment on above: Performed By: #### C BCDF #### [facility] [address] [place] [address] MCV (RBC) [Entitic vol] 85 fL Normal 80 - 100 [facility] Comment on above: Performed By: #### C BCDF #### [facility] [address] [place] [address] Monocytes (Bld) [#/Vol] 0.72 10*3/uL Normal 0.10 - 1.00 [facility] Comment on above: Performed By: #### C BCDF #### [facility] [address] [place] [address] Monocytes/100 WBC (Bld) 8.7 % Normal 2.0 - 10.0 [facility] Comment on above: Performed By: #### C BCDF #### [facility] [address] [place] [address] Neutrophils (Bld) [#/Vol] 6.23 10*3/uL Normal 1.20 - 7.70 [facility] Comment on above: Performed By: #### C BCDF #### [facility] [address] [place] [address] Neutrophils/100 WBC (Bld) 75.7 % Normal 40.0 - 80.0 [facility] Comment on above: Performed By: #### C BCDF #### [facility] [address] [place] [address] NUCLEATED RBC 0.0 /100 WBC Normal 0.0-0.0 [facility] Comment on above: Performed By: #### C BCDF #### [facility] [address] [place] [address] Platelets (Bld) [#/Vol] 233 10*3/uL Normal 150 - 450 [facility] Comment on above: Performed By: #### C BCDF #### [facility] [address] [place] [address] RBC 4.15 x10E12/L Normal 4.00 - 5.20 [facility] Comment on above: Performed By: #### C BCDF #### [facility] [address] [place] [address] WBC (Bld) [#/Vol] 8.2 10*3/uL Normal 4.4 - 11.3 [facility] Comment on above: Performed By: #### C BCDF #### [facility] [address] [place] [address] % AUTOMATED IMMATURE GRAN Canceled Normal [facility] Comment on above: Order Comment: TEST CBC AND DIFFERENTIAL WAS CANCELLED, 10/28/2022 16:16 Result Comment: Iram ture Granulocyte Count (IG) includes promyelocytes, myelocytes and metamyelocytes but does not include bands. Percent differential counts (%) should be interpreted in the context of the absolute cell counts (cells/L). Performed By: #### V ANCU #### [facility] [address] [place] [address] % BASOPHIL Canceled Normal [facility] Comment on above: Order Comment: TEST CBC AND DIFFERENTIAL WAS CANCELLED, 10/28/2022 16:16 Performed By: #### V ANCU #### [facility] [address] [place] [address] % EOSINOPHIL Canceled Normal [facility] Comment on above: Order Comment: TEST CBC AND DIFFERENTIAL WAS CANCELLED, 10/28/2022 16:16 Performed By: #### V ANCU #### [facility] [address] [place] [address] % LYMPHOCYTE Canceled Normal [facility] Comment on above: Order Comment: TEST CBC AND DIFFERENTIAL WAS CANCELLED, 10/28/2022 16:16 Performed By: #### V ANCU #### [facility] [address] [place] [address] % MONOCYTE Canceled Normal [facility] Comment on above: Order Comment: TEST CBC AND DIFFERENTIAL WAS CANCELLED, 10/28/2022 16:16 Performed By: #### V ANCU #### [facility] [address] [place] [address] % NEUTROPHIL Canceled Normal [facility] Comment on above: Order Comment: TEST CBC AND DIFFERENTIAL WAS CANCELLED, 10/28/2022 16:16 Performed By: #### V ANCU #### [facility] [address] [place] [address] BASOPHIL Canceled Normal [facility] Comment on above: Order Comment: TEST CBC AND DIFFERENTIAL WAS CANCELLED, 10/28/2022 16:16 Performed By: #### V ANCU #### [facility] [address] [place] [address] DIFFERENTIAL Canceled Normal [facility] Comment on above: Order Comment: TEST CBC AND DIFFERENTIAL WAS CANCELLED, 10/28/2022 16:16 Performed By: #### V ANCU #### [facility] [address] [place] [address] EOSINOPHIL Canceled Normal [facility] Comment on above: Order Comment: TEST CBC AND DIFFERENTIAL WAS CANCELLED, 10/28/2022 16:16 Performed By: #### V ANCU #### [facility] [address] [place] [address] HCT Canceled Normal [facility] Comment on above: Order Comment: TEST CBC AND DIFFERENTIAL WAS CANCELLED, 10/28/2022 16:16 Performed By: #### V ANCU #### [facility] [address] [place] [address] HGB Canceled Normal [facility] Comment on above: Order Comment: TEST CBC AND DIFFERENTIAL WAS CANCELLED, 10/28/2022 16:16 Performed By: #### V ANCU #### [facility] [address] [place] [address] LYMPHOCYTE Canceled Normal [facility] Comment on above: Order Comment: TEST CBC AND DIFFERENTIAL WAS CANCELLED, 10/28/2022 16:16 Performed By: #### V ANCU #### [facility] [address] [place] [address] MCHC Canceled Normal [facility] Comment on above: Order Comment: TEST CBC AND DIFFERENTIAL WAS CANCELLED, 10/28/2022 16:16 Performed By: #### V ANCU #### [facility] [address] [place] [address] MCV Canceled Normal [facility] Comment on above: Order Comment: TEST CBC AND DIFFERENTIAL WAS CANCELLED, 10/28/2022 16:16 Performed By: #### V ANCU #### [facility] [address] [place] [address] MONOCYTE Canceled Normal [facility] Comment on above: Order Comment: TEST CBC AND DIFFERENTIAL WAS CANCELLED, 10/28/2022 16:16 Performed By: #### V ANCU #### [facility] [address] [place] [id number] NEUTROPHIL Canceled Normal [facility] Comment on above: Order Comment: TEST CBC AND DIFFERENTIAL WAS CANCELLED, 10/28/2022 16:16 Performed By: #### V ANCU #### [facility] [address] [place] [id number] NUCLEATED RBC Canceled Normal [facility] Comment on above: Order Comment: TEST CBC AND DIFFERENTIAL WAS CANCELLED, 10/28/2022 16:16 Performed By: #### V ANCU #### [facility] [address] [place] [address] PLT Canceled Normal [facility] Comment on above: Order Comment: TEST CBC AND DIFFERENTIAL WAS CANCELLED, 10/28/2022 16:16 Performed By: #### V ANCU #### [facility] [address] [place] [address] RBC Canceled Normal [facility] Comment on above: Order Comment: TEST CBC AND DIFFERENTIAL WAS CANCELLED, 10/28/2022 16:16 Performed By: #### V ANCU #### [facility] [address] [place] [address] RDW-CV Canceled Normal [facility] Comment on above: Order Comment: TEST CBC AND DIFFERENTIAL WAS CANCELLED, 10/28/2022 16:16 Performed By: #### V ANCU #### [facility] [address] [place] [id number] WBC Canceled Normal [facility] Comment on above: Order Comment: TEST CBC AND DIFFERENTIAL WAS CANCELLED, 10/28/2022 16:16 Performed By: #### V ANCU #### [facility] [address] 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 Patient Location [address] Drug Name: Bactrim DS 800 mg-160 mg oral tablet Instructions: 1 tab(s) orally 2 times a day STOP DATE 11/04/22 -.ADOD - .10/28 Meds to Beds .Patient Location [address] Drug Name: hydrOXYzine hydrochloride 25 mg oral tablet Instructions: 1 tab(s) orally every 6 hours, As needed, ITCHING -.ADOD - .10/28 Meds to Beds .Patient Location [address] Drug Name: loperamide 2 mg oral capsule Instructions: 1 cap(s) orally every 4 hours, As needed, Diarrhea -.ADOD - .10/28 Meds to Beds .Patient Location [address] Medications Deliveredsee above Medications Delivered Topatient; nurse Delivery Date/[id number] 11:43 Controlled Medications Given ToElizabeth Shanae Medications ReviewedReviewed medication timing, indication, and ADR with patient. Education TopicADR counseling; dosage, frequency, storage; medication indication; medication interactions Learnerpatient Barriers to Learningnone Methodverbal Outcome Evaluation2=meets goals/outcomes Allergy: Allergies Summary Allergy Allergen: penicillin Type: Drug Reaction: Hives/Urticaria Electronic Signatures: Aris Pugh ([facility]) (Signed 30-Oct-2022 07:56) Co-Signer: Discharge Meds, Allergy Cristela Hollis ([facility]) (Signed 28-Oct-2022 12:44) Authored: Discharge Meds, Allergy Last Updated: 30-Oct-2022 07:56 by Aris Pugh ([facility]LY [facility]) Normal [facility] Complete Blood Count + Diffe yamil 10-28-2022 [...] Count + Differential 0.04 {x10E9/L} See Below [facility] Work Phone: Comment on above: Reference Range: 0.0 0 - 0.10 Complete Blood Count + Differential 0.45 {x10E9/L} See Below [facility] Work Phone: Comment on above: Reference Range: 0.0 0 - 0.70 Complete Blood Count + Differential 0.72 {x10E9/L} below low threshold See Below [facility] Work Phone: Comment on above: Reference Range: 0.1 0 - 1.00 Reference Range: 1.2 0 - 4.80 Complete Blood Count + Differential 6.23 {x10E9/L} See Below [facility] Work Phone: Comment on above: Reference [...] sloughing. Objective Data: Objective Information: T PRBPMAPSpO2 [id number]/8292% Date/Time10/28 13: 13: 13: 13: 13:07 Range(36.1C [...] OSH. First full day of therapy at [facility] was on 10/21. MRSA swab collected here today. Would continue to treat w/ PO amox-clav once ready for d/c. If MRSA swab is p (more content not included)... Normal [facility] Daily Progress Note-Ophthalm ologyon 10-28-2022 Daily Progress Note-Ophthalmology Service: Ophthalmology Subjective Data: GRACIE BANUELOS is a 57 year old Female who is Hospital Day # 6. Objective Data: Objective Information: T PRBPMAPSpO2 [id number]/7793% Date/Time10/28 11: 11: 11: 11: 11:31 Range(36.1C [...] progressed. On 10/19/22 she presented to the [place] [facility] and CT orbits showed findings concerning for right orbital cellulitis. WBC was reportedly 13.9, ESR 75, and CRP 42.6. She was prescribed clindamycin to take at home, but her pain only worsened and she presented to [facility] on 10/20/22 for further management. MRI [...] CT Orbit Sella Inner, by report from [employer] shows: 1. Marked abnormality of the soft [...] pterygopalatine fossa and diffusely throughout the right client director space with asymmetry of the muscles of mastication. Additional mild enlargement of the right inferior and lateral rectus. These fi (more content not included)... Normal [facility] HEPATIC FUNCTION PANELon Albumin [Mass/Vol] 3.5 g/dL Normal 3.4 - 5.0 [facility] Comment on above: Performed By: #### C MP #### [facility] [address] [place] [address] ALP [Catalytic activity/Vol] 90 U/L Normal 33 - 110 [facility] Comment on above: Performed By: #### C MP #### [facility] [address] [place] [address] ALT [Catalytic activity/Vol] 23 U/L Normal 7 - 45 [facility] Comment on above: Result Comment: Gretta ents treated with Sulfasalazine may generate falsely decreased results for ALT. Performed By: #### C MP #### [facility] [address] [place] [address] AST [Catalytic activity/Vol] 23 U/L Normal 9 - 39 [facility] Comment on above: Performed By: #### C MP #### [facility] [address] [place] [address] Bilirubin [Mass/Vol] 0.2 mg/dL Normal 0.0 - 1.2 [facility] Comment on above: Performed By: #### C MP #### [facility] [address] [place] [address] Bilirubin.indirect [Mass/Vol] 0.1 mg/dL Normal 0.0 - 0.3 [facility] Comment on above: Performed By: #### C MP #### [facility] [address] [place] [address] Protein [Mass/Vol] 6.3 g/dL Low 6.4 - 8.2 [facility] Comment on above: Performed By: #### C MP #### [facility] [address] [place] [address] Hepatic Function Panelon Albumin BCP dye [Mass/Vol] 3.5 g/dL 3.4 - 5.0 [facility] Work Phone: [phone] ALP [Catalytic activity/Vol] 90 U/L 33 - 110 [facility] Work Phone: [phone] ALT With P-5'-P [Catalytic activity/Vol] 23 U/L 7 - 45 [facility] Work Phone: [phone] Comment on above: Patients treated wit h Sulfasalazine may generate falsely decreased results for ALT. AST With P-5'-P [Catalytic activity/Vol] 23 U/L 9 - 39 [facility] Work Phone: [phone] Bilirubin [Mass/Vol] 0.2 mg/dL 0.0 - 1.2 [facility] Work Phone: Bilirubin.direct [Mass/Vol] 0.1 mg/dL 0.0 - 0.3 [facility] Work Phone: Protein [Mass/Vol] 6.3 g/dL below low threshold 6.4 - 8.2 [facility] Work Phone: RENAL FUNCTION PANELon 10-28 Albumin [Mass/Vol] 3.4 g/dL Normal 3.4 - 5.0 [facility] Comment on above: Performed By: #### C MP #### [facility] [address] [place] [address] Anion gap [Moles/Vol] 13 mmol/L Normal 10 - 20 [facility] Comment on above: Performed By: #### C MP #### [facility] [address] [place] [address] Calcium [Mass/Vol] 8.7 mg/dL Normal 8.6 - 10.6 [facility] Comment on above: Performed By: #### C MP #### [facility] [address] [place] [address] Chloride [Moles/Vol] 104 mmol/L Normal 98 - 107 [facility] Comment on above: Performed By: #### C MP #### [facility] [address] [place] [address] Creatinine [Mass/Vol] 1.39 mg/dL High 0.50 - 1.05 [facility] Comment on above: Performed By: #### C MP #### [facility] [address] [place] [address] GFR/1.73 sq M.predicted among non-blacks MDRD (S/P/Bld) [Vol rate/Area] 44 mL/min/{1.73_m2} Abnormal >90 [facility] Comment on above: Result Comment: CALC ULATIONS OF ESTIMATED GFR ARE PERFORMED USING THE 2020 CKD-EPI STUDY REFIT EQUATION WITHOUT THE RACE VARIABLE FOR THE IDMS-TRACEABLE CREATININE METHODS. https://jasn.asnjournals.org/content//ASN.18545 78372 Performed By: #### C MP #### [facility] [address] [place] [address] Glucose [Mass/Vol] 85 mg/dL Normal 74 - 99 [facility] Comment on above: Performed By: #### C MP #### [facility] [address] [place] [address] HCO3 (Bld) [Moles/Vol] 26 mmol/L Normal 21 - 32 [facility] Comment on above: Performed By: #### C MP #### [place] [address] [place] [address] Phosphate [Mass/Vol] 4.1 mg/dL Normal 2.5 - 4.9 [facility] Comment on above: Result Comment: The performance characteristics of phosphorus testing in heparinized plasma have been validated by the individual laboratory site where testing is performed. Testing on heparinized plasma is not approved by the FDA; however, such approval is not necessary. Performed By: #### C MP #### [facility] [address] [place] [address] Potassium [Moles/Vol] 3.9 mmol/L Normal 3.5 - 5.3 [facility] Comment on above: Performed By: #### C MP #### [facility] [address] [place] [address] Sodium [Moles/Vol] 139 mmol/L Normal 136 - 145 [facility] Comment on above: Performed By: #### C MP #### [facility] [address] [place] [address] Urea nitrogen [Mass/Vol] 10 mg/dL Normal 6 - 23 [facility] Comment on above: Performed By: #### C MP #### [facility] [address] [place] [address] Renal Function Panelon 10-28 Albumin BCP dye [...] RACE VARIABLE FOR THE IDMS-TRACEABLE CREATININE METHODS.https://jasn.asnjournals.org/content/early/A SN.3384437797 UA MICROSCOPICon 10-28-2022 RBC 2 /HPF Normal 0-5 [facility] Comment on above: Performed By: #### C MP #### [facility] [address] [place] [address] SQUAMOUS EPITH. CELLS 7 /HPF Normal [facility] Comment on above: Performed By: #### C MP #### [facility] [address] [place] [address] WBC 2 /HPF Normal 0-5 [facility] Comment on above: Performed By: #### C MP #### [facility] [address] [place] [address] URINALYSIS WITH CULTURE IF I NDICATEDon 10-28-2022 Appearance (U) HAZY Normal CLEAR [facility] Comment on above: Performed By: #### C MP #### [facility] [address] [place] [address] Bilirubin Ql (U) Negative Normal NEGATIVE [facility] Comment on above: Performed By: #### C MP #### [facility] [address] [place] [address] Color (U) YELLOW Normal STRAW,YELLOW [facility] Comment on above: Performed By: #### C MP #### [facility] [address] [place] [address] Glucose Ql (U) Negative Normal NEGATIVE [facility] Comment on above: Performed By: #### C MP #### [facility] [address] [place] [address] Hemoglobin Ql (U) Negative Normal NEGATIVE [facility] Comment on above: Performed By: #### C MP #### [facility] [address] [place] [address] Ketones Ql (U) Negative Normal NEGATIVE [facility] Comment on above: Performed By: #### C MP #### [facility] [address] [place] [address] Leukocyte esterase Test strip Ql (U) Negative Normal NEGATIVE [facility] Comment on above: Performed By: #### C MP #### [facility] [address] [place] [address] Nitrite Ql (U) Negative Normal NEGATIVE [facility] Comment on above: Performed By: #### C MP #### [facility] [address] [place] [address] pH (U) 6.0 [pH] Normal 5.0 - 8.0 [facility] Comment on above: Performed By: #### C MP #### [facility] [address] [place] [address] Protein Ql (U) 30 (1+) Abnormal NEGATIVE [facility] Comment on above: Performed By: #### C MP #### [facility] [address] [place] [address] Specific gravity (U) [Rel density] 1.020 Normal 1.005 - 1.035 [facility] Comment on above: Performed By: #### C MP #### [facility] [address] [place] [address] Urobilinogen (U) [Mass/Vol] mg/dL Normal 0.0 - 1.9 [facility] Comment on above: Performed By: #### C MP #### [facility] [address] [place] [address] Color (U) YELLOW See Below [facility] Work Phone: Comment on above: Reference Range: STR AW,YELLOW Glucose Ql (U) Negative NEGATIVE [facility] Work Phone: [phone] Ketones Ql (U) Negative NEGATIVE [facility] Work Phone: [phone] Leukocyte esterase Test strip Ql (U) Negative NEGATIVE [facility] Work Phone: [phone] pH (U) 6.0 [pH] 5.0 - 8.0 [facility] Work Phone: [phone] Protein (U) [Mass/Vol] 30 (1+) Abnormal NEGATIVE [facility] Work Phone: [phone] RBC (U) [#/Vol] Negative NEGATIVE [facility] Work Phone: [phone] Specific gravity (U) [Rel density] 1.020 1 See Below [facility] Work Phone: [phone] Comment on above: Reference Range: 1.0 05 - 1.035 URINALYSIS WITH CULTURE IF INDICATED Negative NEGATIVE [facility] Work Phone: [phone] URINALYSIS WITH CULTURE IF INDICATED <2.0 0.0 - 1.9 [facility] Work Phone: [phone] URINALYSIS WITH CULTURE IF INDICATED HAZY CLEAR [facility] Work Phone: [phone] Urinalysis, Microscopicon Urinalysis, Microscopic 7 {/HPF} [facility] Work Phone: [phone] Urinalysis, Microscopic 2 {/HPF} 0-5 [facility] Work Phone: [phone] VANCOMYCINon 10-28-2022 VANCOMYCIN 13.7 ug/mL Normal [facility] Comment on above: Result Comment: .The rapeutic Ranges: Peak: All ages: 30.0-40.0 ug/mL . Trough: Age <18y: 5.0-10.0 ug/mL . Age >/= 18y: 5.0-20.0 ug/mL . Vancomycin trough concentrations drawn immediately prior to the next dose at steady-state are preferred for monitoring patients treated with vancomycin. Ref.: Am J Health-Syst Pharm 66: 83-98, 2008. Performed By: #### C #### [facility] [address] [place] [address] ANCA-ASSOCIATED VASCULITIS P ROFILE [ANCA,MPO,PR3]on 10-27-2022 Myeloperoxidase Ab Qn (S) 0 AU/mL 0-19 [employer] Work Phone: Comment on above: INTERPRETIVE INFORMA TION: Myeloperoxidase Abs, IgG 19 AU/mL or Less ......... Negative 20-25 AU/mL .............. Equivocal 26 AU/mL or Greater ...... PositiveApproximately 90% of patients with a P-ANCA pattern by IFA have antibodies specific for MPO. Proteinase 3 Ab Qn (S) 0 AU/mL 0-19 [employer] Work Phone: Comment on above: INTERPRETIVE INFORMA TION: Serine Proteinase 3, IgG 19 AU/mL or Less ........ Negative 20-25 AU/mL ............. Equivocal 26 AU/mL or Greater ..... PositiveApproximately 85% of patients with a C-ANCA pattern by IFA have antibodies specific for PR3. ANCA-ASSOCIATED VASCULITIS PROFILE [ANCA,MPO,PR3] Not detected See Below [employer] Work Phone: Comment on above: Reference Range: Non e DetectedINTERPRETIVE INFORMATION: ANCA IFA Pattern Neutrophil Cytoplasmic Antibodies (C-ANCA = granular cytoplasmic staining, P-ANCA = perinuclear staining) are found in the serum of over 90 percent of patients with certain necrotizing systemic vasculitides, and usually in less than 5 percent of patients with collagen vascular disease or arthritis.Performed By: [email or web address] [place] [address] [id number] Director: Kyle Hyatt MD, PhD ANCA-ASSOCIATED VASCULITIS PROFILE [ANCA,MPO,PR3] <1:20 <1:20 [facility] Work Phone: CBC AND DIFFERENTIALon 10-27 % AUTOMATED IMMATURE GRAN 0.7 % Normal 0.0 - 0.9 [facility] Comment on above: Result Comment: Iram ture Granulocyte Count (IG) includes promyelocytes, myelocytes and metamyelocytes but does not include bands. Percent differential counts (%) should be interpreted in the context of the absolute cell counts (cells/L). Performed By: #### U A #### [facility] [address] [place] [address] Basophils (Bld) [#/Vol] 0.05 10*3/uL Normal 0.00 - 0.10 [facility] Comment on above: Performed By: #### U A #### [facility] [address] [place] [address] Basophils/100 WBC (Bld) 0.5 % Normal 0.0 - 2.0 [facility] Comment on above: Performed By: #### U A #### [facility] [address] [place] [address] Eosinophils (Bld) [#/Vol] 0.99 10*3/uL High 0.00 - 0.70 [facility] Comment on above: Performed By: #### U A #### [facility] [address] [place] [address] Eosinophils/100 WBC (Bld) 10.6 % Normal 0.0 - 6.0 [facility] Comment on above: Performed By: #### U A #### [facility] [address] [place] [address] Erythrocyte distribution width (RBC) [Ratio] 13.3 % Normal 11.5 - 14.5 [facility] Comment on above: Performed By: #### U A #### [facility] [address] [place] [address] Hematocrit (Bld) [Volume fraction] 35.9 % Low 36.0 - 46.0 [facility] Comment on above: Performed By: #### U A #### [facility] [address] [place] [address] Hemoglobin (Bld) [Mass/Vol] 11.7 g/dL Low 12.0 - 16.0 [facility] Comment on above: Performed By: #### U A #### [facility] [address] [place] [address] Lymphocytes (Bld) [#/Vol] 1.29 10*3/uL Normal 1.20 - 4.80 [facility] Comment on above: Performed By: #### U A #### [facility] [address] [place] [address] Lymphocytes/100 WBC (Bld) 13.8 % Normal 13.0 - 44.0 [facility] Comment on above: Performed By: #### U A #### [facility] [address] [place] [address] MCHC (RBC) [Mass/Vol] 32.6 g/dL Normal 32.0 - 36.0 [facility] Comment on above: Performed By: #### U A #### [facility] [address] [place] [address] MCV (RBC) [Entitic vol] 82 fL Normal 80 - 100 [facility] Comment on above: Performed By: #### U A #### [facility] [address] [place] [address] Monocytes (Bld) [#/Vol] 1.18 10*3/uL High 0.10 - 1.00 [facility] Comment on above: Performed By: #### U A #### [facility] [address] [place] [address] Monocytes/100 WBC (Bld) 12.6 % Normal 2.0 - 10.0 [facility] Comment on above: Performed By: #### U A #### [facility] [address] [place] [address] Neutrophils (Bld) [#/Vol] 5.78 10*3/uL Normal 1.20 - 7.70 [facility] Comment on above: Performed By: #### U A #### [facility] [address] [place] [address] Neutrophils/100 WBC (Bld) 61.8 % Normal 40.0 - 80.0 [facility] Comment on above: Performed By: #### U A #### [facility] [address] [place] [address] NUCLEATED RBC 0.0 /100 WBC Normal 0.0-0.0 [facility] Comment on above: Performed By: #### U A #### [facility] [address] [place] [address] Platelets (Bld) [#/Vol] 318 10*3/uL Normal 150 - 450 [facility] Comment on above: Performed By: #### U A #### [facility] [address] [place] [address] RBC 4.40 x10E12/L Normal 4.00 - 5.20 [facility] Comment on above: Performed By: #### U A #### [facility] [address] [place] [address] WBC (Bld) [#/Vol] 9.4 10*3/uL Normal 4.4 - 11.3 [facility] Comment on above: Performed By: #### U A #### [facility] [address] [place] [address] COMPREHENSIVE PANELon 2022 Albumin [Mass/Vol] 3.5 g/dL Normal 3.4 - 5.0 [facility] Comment on above: Performed By: #### U A #### [facility] [address] [place] [address] ALP [Catalytic activity/Vol] 109 U/L Normal 33 - 110 [facility] Comment on above: Performed By: #### U A #### [facility] [address] [place] [address] ALT [Catalytic activity/Vol] 20 U/L Normal 7 - 45 [facility] Comment on above: Result Comment: Gretta ents treated with Sulfasalazine may generate falsely decreased results for ALT. Performed By: #### U A #### [facility] [address] [place] [address] Anion gap [Moles/Vol] 15 mmol/L Normal 10 - 20 [facility] Comment on above: Performed By: #### U A #### [facility] [address] [place] [address] AST [Catalytic activity/Vol] 20 U/L Normal 9 - 39 [facility] Comment on above: Performed By: #### U A #### [facility] [address] [place] [address] Bilirubin [Mass/Vol] 0.3 mg/dL Normal 0.0 - 1.2 [facility] Comment on above: Performed By: #### U A #### [facility] [address] [place] [address] Calcium [Mass/Vol] 9.2 mg/dL Normal 8.6 - 10.6 [facility] Comment on above: Performed By: #### U A #### [facility] [address] [place] [address] Chloride [Moles/Vol] 102 mmol/L Normal 98 - 107 [facility] Comment on above: Performed By: #### U A #### [facility] [address] [place] [address] Creatinine [Mass/Vol] 1.53 mg/dL High 0.50 - 1.05 [facility] Comment on above: Performed By: #### U A #### [facility] [address] [place] [address] GFR/1.73 sq M.predicted among non-blacks MDRD (S/P/Bld) [Vol rate/Area] 39 mL/min/{1.73_m2} Abnormal >90 [facility] Comment on above: Result Comment: CALC ULATIONS OF ESTIMATED GFR ARE PERFORMED USING THE 2020 CKD-EPI STUDY REFIT EQUATION WITHOUT THE RACE VARIABLE FOR THE IDMS-TRACEABLE CREATININE METHODS. https://jasn.asnjournals.org/content//ASN.80334 05141 Performed By: #### U A #### [facility] [address] [place] [address] Glucose [Mass/Vol] 91 mg/dL Normal 74 - 99 [facility] Comment on above: Performed By: #### U A #### [facility] [address] [place] [address] HCO3 (Bld) [Moles/Vol] 24 mmol/L Normal 21 - 32 [facility] Comment on above: Performed By: #### U A #### [facility] [address] [place] [address] Potassium [Moles/Vol] 4.4 mmol/L Normal 3.5 - 5.3 [facility] Comment on above: Performed By: #### U A #### [facility] [address] [place] [address] Protein [Mass/Vol] 6.6 g/dL Normal 6.4 - 8.2 [facility] Comment on above: Performed By: #### U A #### [facility] [address] [place] [address] Sodium [Moles/Vol] 137 mmol/L Normal 136 - 145 [facility] Comment on above: Performed By: #### U A #### [facility] [address] [place] [address] Urea nitrogen [Mass/Vol] 12 mg/dL Normal 6 - 23 [facility] Comment on above: Performed By: #### U A #### [facility] [address] [place] [address] Complete Blood Count + Diffe suhason 10-27-2022 [...] See Below [facility]- Wilfrid Giang Work Phone: [phone] Comment on above: Reference Range: 12. 0 - 16.0 Lymphocytes/100 WBC (Bld) 13.8 % See Below [facility]icineSierra [facility] Work Phone: [phone] Comment on above: Reference Range: 13. 0 - 44.0 MCHC (RBC) [Mass/Vol] 32.6 g/dL See Below [facility]- MedicineSierra Giang Work Phone: [phone] Comment on above: Reference Range: 32. 0 - 36.0 MCV (RBC) [Entitic vol] 82 fL 80 - 100 [facility]lic[facility] Work Phone: [phone] Monocytes/100 WBC (Bld) 12.6 % 2.0 - 10.0 -Ulices Giang Work Phone: [phone] Neutrophils/100 WBC (Bld) 61.8 % See Below MGSierraMedicineSierra Giang Work Phone: [phone] Comment on above: Reference Range: 40. 0 - 80.0 Platelets (Bld) [#/Vol] 318 10*3/uL 150 - 450 [facility] Work Phone: [phone] RBC (Bld) [#/Vol] 4.40 {x10E12/L} See Below [facility] -MedicineSierra [facility]ang Work Phone: [phone] Comment on above: Reference Range: 4.0 0 - 5.20 WBC (Bld) [#/Vol] 9.4 10*3/uL 4.4 - 11.3 [facility] icineSierra Giang Work Phone: [phone] Complete Blood Count + Differential 0.05 {x10E9/L} [...] Count + Differential 1.29 {x10E9/L} See Below [facility] Work Phone: Comment on above: Reference [...] improved. Objective Data: Objective Information: T PRBPMAPSpO2 [id number]/7893% Date/Time10/27 14: 14: 14: 14: 14:12 Range(36.2C [...] OSH. First full day of therapy at [facility] was on 10/21. MRSA swab collected here today. Would continue to treat w/ PO amox-clav once ready for d/c. If MRSA swab is positive, can transition or change to TMP-SMX. #CHUY Baseline <1, Cr 1.5. Could be combination of vanc and pip-tazo; Cr currently stab (more content not included)... Normal [facility] Daily Progress Note-Medicine on 10-27-2022 Daily Progress [...] lid. Objective Data: Objective Information: T PRBPMAPSpO2 Value36.21282212/8297% Date/Time10/27 4: 4: 4: 4: 4:29 Range(36.3C [...] that it started the day she left [facility]. C. diff work up at [facility] came back negative - Likely due to Abx - Started on Immodium as needed - Will consider C diff PCR if diarrhea continues (more content not included)... Normal [facility] Daily Progress Note-Ophthalm ologyon 10-27-2022 Daily Progress Note-Ophthalmology Service: Ophthalmology Subjective Data: GRACIE BANUELOS is a 57 year old Female who is Hospital Day # 5. Objective Data: Objective Information: T PRBPMAPSpO2 [id number]/8297% Date/Time10/27 4: 4: 4: 4: 4:29 Range(36.3C [...] progressed. On 10/19/22 she presented to the [place] [facility] and CT orbits showed findings concerning for right orbital cellulitis. WBC was reportedly 13.9, ESR 75, and CRP 42.6. She was prescribed clindamycin to take at home, but her pain only worsened and she presented to [facility] on 10/20/22 for further management. MRI [...] CT Orbit Sella Inner, by report from [employer] shows: 1. Marked abnormality of the soft [...] orbit. 5. (more content not included)... Normal [facility] EMR ADDONon 10-27-2022 ADDON CONFIRMATION REQUEST REC'D Normal [facility] Comment on above: Performed By: #### U A #### [facility] [address] [place] [address] GLUCOSE-POCTon 10-27-2022 Glucose [Mass/Vol] 100 mg/dL High 74 - 99 [facility] Comment on above: Performed By: #### U A #### [facility] [address] [place] [address] Laboratory - Chemistry and C hemistry - challengeon 10-27-2022 Potassium (U) [Moles/Vol] 6 mmol/L See Below [facility] [employer] Work Phone: Comment on above: Reference Range: Not Established Potassium/Creatinine (U) [Molar ratio] 22 {mmol/g_Creat} See Below [facility] Work Phone: Comment on above: Reference Range: Not Established Sodium (U) [Moles/Vol] 18 mmol/L See Below [facility] Work Phone: Comment on above: Reference Range: Not Established Sodium/Creatinine (U) [Ratio] 67 {mmol/g_Creat} See Below [facility] Wilfrid Giang Work Phone: Comment on above: Reference Range: Not Established Glucose [Mass/Vol] 100 mg/dL above high threshold 74 - 99 [facility] Wilfrid Giang Work Phone: Albumin BCP dye [Mass/Vol] 3.5 g/dL 3.4 - 5.0 [facility] Wilfrid Giang Work Phone: [phone] ALP [Catalytic activity/Vol] 109 U/L 33 - 110 [facility] Work Phone: ALT With P-5'-P [Catalytic activity/Vol] 20 U/L 7 - 45 [facility] Work Phone: Comment on above: Patients treated wit h Sulfasalazine may generate falsely decreased results for ALT. Anion gap [Moles/Vol] 15 mmol/L 10 - 20 [facility] Wilfrid Giang Work Phone: AST With P-5'-P [Catalytic activity/Vol] 20 U/L 9 - 39 [facility] Wilfrid Giang Work Phone: Bilirubin [Mass/Vol] 0.3 mg/dL 0.0 - 1.2 MG[facility] Work Phone: Calcium [Mass/Vol] 9.2 mg/dL 8.6 - 10.6 [facility] icine Wilfrid Giang Work Phone: [phone] Chloride [Moles/Vol] 102 mmol/L 98 - 107 [facility] Work Phone: CO2 [Moles/Vol] 24 mmol/L 21 - 32 [facility] Wilfrid Savoy Work Phone: [phone] Creatinine [Mass/Vol] 1.53 mg/dL above high threshold See Below [facility] Yuen Giang Work Phone: Comment on above: [...] RACE VARIABLE FOR THE IDMS-TRACEABLE CREATININE METHODS.https://jasn.asnjournals.org/content//A SN.6159413317 POTASSIUM, URINE SPOTon 09-30 POT/CREAT RATIO 22 mmol/g Creat Normal Not Established [facility] Comment on above: Performed By: #### U A #### [facility] [address] [place] [address] POTASSIUM,URINE SPOT 6 mmol/L Normal Not Established [facility] Comment on above: Performed By: #### U A #### [facility] [address] [place] [address] SODIUM, URINE SPOTon 023 CREATININE,URINE 27.0 mg/dL Normal 20.0 - 320.0 [facility] Comment on above: Performed By: #### C MP #### [facility] [address] [place], [place] Performed By: #### U A #### [facility] [address] [place], [place] Sodium (U) [Moles/Vol] 18 mmol/L Normal Not Established [facility] Comment on above: Performed By: #### C MP #### [facility] [address] [place], [place] SODIUM/CREAT RATIO 67 mmol/g Creat Normal Not Established [facility] Comment on above: Performed By: #### C MP #### [facility] [address] [place], [place] STAPH/MRSA SCREENon 10-27-19 STAPH/MRSA SCREEN PATIENT: FERNIE BANUELOS LOCATION: [place] [address] BILL#: [id number] : 61 AGE: SEX: F ORDERED BY: JUSTYN RICHTER SOURCE: ANTERIOR NARES COLLECTED: 10/27/22 15:12 ANTIBIOTICS AT DEB.: RECEIVED : 10/27/22 17:38 SITE: Nares R E S U L T S STAPH/MRSA SCREEN FINAL 10/29/22 11:04 NO Staphylococcus aureus ISOLATED. Normal [facility] Comment on above: Performed By: #### S TAPH #### [facility] [address] [place], [place] T-SPOT TBon 10-27-2022 NIL[NEG]CONTROL SPOT COUNT Passed Normal [facility] Comment on above: Performed By: #### V ANCU #### [facility] [address] [place] [address] PANEL A SPOT COUNT 0 Normal [facility] Comment on above: Performed By: #### V ANCU #### [facility] [address] [place] [address] PANEL B SPOT COUNT 0 Normal [facility] Comment on above: Performed By: #### V ANCU #### [facility] [address] [place] [address] POS CONTROL SPOT COUNT Passed Normal [facility] Comment on above: Performed By: #### V ANCU #### [facility] [address] [place] [address] T-SPOT.TB INTERP Negative Normal Normal Value: Negative [facility] Comment on above: Result Comment: A ne [...] test. Performed By: #### V ANCU #### [facility] [address] [place] [id number] TOTAL PROTEIN, URINE SPOTon 10-27-2022 T. PROTEIN/CREAT RATIO 0.19 mg/mg Creat High 0.00 - 0.17 [facility] Comment on above: Performed By: #### C MP #### [facility] [address] [place] [address] TOTAL PROT,URINE SPOT 5 mg/dL Normal 5 - 24 [facility] Comment on above: Performed By: #### C MP #### [facility] [address] [facility] [place] [id number] Telephone Encounteron 2022 [employer] Authentication Interface Message Text Ynes from called requesting a 2 week follow appointment for this pt. Pt is being discharged today for eye pain. Pt was recently seen on 10/22/2022. Where should I schedule this pt ? Thank you Sarah Conde Normal [employer] Total Protein, Urine Spoton 10-27-2022 Creatinine (U) [Mass/Vol] 27.0 mg/dL See Below -[facility]- Wilfrid Giang Work Phone: Comment on above: Reference Range: 20. 0 - 320.0 Protein (U) [Mass/Vol] 5 mg/dL 5 - 24 -[facility] Wilfrid Giang Work Phone: Protein/Creatinine (U) [Ratio] 0.19 {mg/mg_Creat} above high threshold See Below [facility] Wilfrid Giang Work Phone: Comment on above: Reference Range: 0.0 0 - 0.17 URINALYSISon 10-27-2022 Appearance (U) CLEAR Normal CLEAR [facility] Comment on above: Performed By: #### U A #### [facility] [address] [place] [address] Bilirubin Ql (U) Negative Normal NEGATIVE [facility] Comment on above: Performed By: #### U A #### [facility] [address] [place] [address] Color (U) STRAW Normal STRAW,YELLOW [facility] Comment on above: Performed By: #### U A #### [facility] [address] [place] [address] Glucose Ql (U) 50 (TRACE) Abnormal NEGATIVE [facility] Comment on above: Performed By: #### U A #### [facility] [address] [place] [address] Hemoglobin Ql (U) Negative Normal NEGATIVE [facility] Comment on above: Performed By: #### U A #### [facility] [address] [place] [address] Ketones Ql (U) Negative Normal NEGATIVE [facility] Comment on above: Performed By: #### U A #### [facility] [address] [place] [address] Leukocyte esterase Test strip Ql (U) Negative Normal NEGATIVE [facility] Comment on above: Performed By: #### U A #### [facility] [address] [place] [address] Nitrite Ql (U) Negative Normal NEGATIVE [facility] Comment on above: Performed By: #### U A #### [facility] [address] [place] [address] pH (U) 6.0 [pH] Normal 5.0 - 8.0 [facility] Comment on above: Performed By: #### U A #### [facility] [address] [place] [address] Protein Ql (U) Negative Normal NEGATIVE [facility] Comment on above: Performed By: #### U A #### [facility] [address] [place] [address] Specific gravity (U) [Rel density] 1.006 Normal 1.005 - 1.035 [facility] Comment on above: Performed By: #### U A #### [facility] [address] [place] [address] Urobilinogen (U) [Mass/Vol] mg/dL Normal 0.0 - 1.9 [facility] Comment on above: Performed By: #### U A #### [facility] [address] [place] [address] Urinalysison 10-27-2022 Color (U) STRAW See Below [facility] Wilfrid Giang Work Phone: Comment on above: Reference Range: STR AW,YELLOW Glucose Ql (U) 50 (TRACE) Abnormal NEGATIVE [facility]- Wilfrid Giang Work Phone: Ketones Ql (U) Negative NEGATIVE [facility]- Wilfrid Giang Work Phone: [phone] Leukocyte esterase Test strip Ql (U) Negative [...] Urinalysis Negative NEGATIVE [facility] Work Phone: [phone] Urinalysis <2.0 0.0 - 1.9 [facility] Work Phone: Urinalysis CLEAR CLEAR -Ulices [...] ENZYMEon ANGIOTENSIN CONV ENZYME <10 Low 16-85 [facility] Comment on above: Result Comment: Perf ormed By: [email or web address] [address] [place] [id number] [employer]: Kyle Hyatt MD, PhD Performed By: #### U A #### [facility] [address] [place] [address] Daily Progress Note-Medicine on 10-26-2022 Daily Progress [...] diarrhea. Objective Data: Objective Information: T PRBPMAPSpO2 Value36.33338733/9594% Date/Time10/26 3: 3: 3: 3: 3:37 Range(36.3C [...] on antibiotics. (more content not included)... Normal [facility] Daily Progress Note-Ophthalm ologyon 10-26-2022 Daily Progress Note-Ophthalmology Service: Ophthalmology Subjective Data: GRACIE BANUELOS is a 57 year old Female who is Hospital Day # 4. Objective Data: Objective Information: T PRBPMAPSpO2 [id number]/7694% Date/Time10/26 3: 12: 12: 12: 3:37 Range(36.3C [...] progressed. On 10/19/22 she presented to the [place] [facility] and CT orbits showed findings concerning for right orbital cellulitis. WBC was reportedly 13.9, ESR 75, and CRP 42.6. She was prescribed clindamycin to take at home, but her pain only worsened and she presented to [facility] on 10/20/22 for further management. MRI [...] CT Orbit Sella Inner, by report from [employer] shows: 1. Marked abnormality of the soft [...] which I personally reviewed, by report from [employer] shows Abnormal infiltration throughout the right retroan (more content not included)... Normal [facility] RENAL FUNCTION PANELon 10-26 Albumin [Mass/Vol] 3.9 g/dL Normal 3.4 - 5.0 [facility] Comment on above: Performed By: #### U A #### [facility] [address] [place] [address] Anion gap [Moles/Vol] 14 mmol/L Normal 10 - 20 [facility] Comment on above: Performed By: #### U A #### [facility] [address] [place] [address] Calcium [Mass/Vol] 9.2 mg/dL Normal 8.6 - 10.6 [facility] Comment on above: Performed By: #### U A #### [facility] [address] [place] [address] Chloride [Moles/Vol] 102 mmol/L Normal 98 - 107 [facility] Comment on above: Performed By: #### U A #### [facility] [address] [place] [address] Creatinine [Mass/Vol] 1.57 mg/dL High 0.50 - 1.05 [facility] Comment on above: Performed By: #### U A #### [place] [address] [place] [address] GFR/1.73 sq M.predicted among non-blacks MDRD (S/P/Bld) [Vol rate/Area] 38 mL/min/{1.73_m2} Abnormal >90 [facility] Comment on above: Result Comment: CALC ULATIONS OF ESTIMATED GFR ARE PERFORMED USING THE 2020 CKD-EPI STUDY REFIT EQUATION WITHOUT THE RACE VARIABLE FOR THE IDMS-TRACEABLE CREATININE METHODS. https://jasn.asnjournals.org/content//ASN.16917 38804 Performed By: #### U A #### [facility] [address] [place] [address] Glucose [Mass/Vol] 124 mg/dL High 74 - 99 [facility] Comment on above: Performed By: #### U A #### [facility] [address] [place] [address] HCO3 (Bld) [Moles/Vol] 24 mmol/L Normal 21 - 32 [facility] Comment on above: Performed By: #### U A #### [facility] [address] [place] [address] Phosphate [Mass/Vol] 5.3 mg/dL High 2.5 - 4.9 [facility] Comment on above: Result Comment: The performance characteristics of phosphorus testing in heparinized plasma have been validated by the individual laboratory site where testing is performed. Testing on heparinized plasma is not approved by the FDA; however, such approval is not necessary. Performed By: #### U A #### [facility] [address] [place] [address] Potassium [Moles/Vol] 4.1 mmol/L Normal 3.5 - 5.3 [facility] Comment on above: Performed By: #### U A #### [facility] [address] [place] [address] Sodium [Moles/Vol] 136 mmol/L Normal 136 - 145 [facility] Comment on above: Performed By: #### U A #### [facility] [address] [place] [address] Urea nitrogen [Mass/Vol] 15 mg/dL Normal 6 - 23 [facility] Comment on above: Performed By: #### U A #### [facility] [address] [place] [address] Renal Function Panelon 10-26 Albumin BCP dye [...] nitrogen [Mass/Vol] 15 mg/dL 6 - 23 [facility] Wilfrid Giang Work Phone: Renal Function Panel 38 {mL/min/1.73m2} Abnormal >90 [facility] Wilfrid Giang Work Phone: Comment on above: CALCULATIONS OF PAVAN MATED GFR ARE PERFORMED USING THE 2020 CKD-EPI STUDY REFIT EQUATION WITHOUT THE RACE VARIABLE FOR THE IDMS-TRACEABLE CREATININE METHODS.https://jasn.asnjournals.org/content//A SN.2939278448 VANCOMYCINon 10-26-2022 VANCOMYCIN 14.6 ug/mL Normal [facility] Comment on above: Result Comment: .The rapeutic Ranges: Peak: All ages: 30.0-40.0 ug/mL . Trough: Age <18y: 5.0-10.0 ug/mL . Age >/= 18y: 5.0-20.0 ug/mL . Vancomycin trough concentrations drawn immediately prior to the next dose at steady-state are preferred for monitoring patients treated with vancomycin. Ref.: Am J Health-Syst Pharm 66: 83-98, 2009. Performed By: #### V GAVINU #### [facility] [address] [place] [address] Vancomycin Level, Randomon 0 10-26-2022 Vancomycin [Mass/Vol] [...] Phone: Comment on above: Performed By: RAJENDRA [email or web address] [email or web address] Director: Kyle Hyatt MD, PhD CBCon 10-25-2022 Erythrocyte distribution width (RBC) [Ratio] 13.3 % Normal 11.5 - 14.5 [facility] Comment on above: Performed By: #### V ANCU #### [facility] [address] [place] [address] Hematocrit (Bld) [Volume fraction] 34.5 % Low 36.0 - 46.0 [facility] Comment on above: Performed By: #### V ANCU #### [facility] [address] [place] [address] Hemoglobin (Bld) [Mass/Vol] 11.5 g/dL Low 12.0 - 16.0 [facility] Comment on above: Performed By: #### V ANCU #### [facility] [address] [place] [address] MCHC (RBC) [Mass/Vol] 33.3 g/dL Normal 32.0 - 36.0 [facility] Comment on above: Performed By: #### V ANCU #### [facility] [address] [place] [address] MCV (RBC) [Entitic vol] 82 fL Normal 80 - 100 [facility] Comment on above: Performed By: #### V ANCU #### [facility] [address] [place] [address] NUCLEATED RBC 0.0 /100 WBC Normal 0.0-0.0 [facility] Comment on above: Performed By: #### V ANCU #### [place] [address] [place] [address] Platelets (Bld) [#/Vol] 306 10*3/uL Normal 150 - 450 [facility] Comment on above: Performed By: #### V ANCU #### [facility] [address] [place] [address] RBC 4.23 x10E12/L Normal 4.00 - 5.20 [facility] Comment on above: Performed By: #### V ANCU #### [place] [address] [place] [address] WBC (Bld) [#/Vol] 10.1 10*3/uL Normal 4.4 - 11.3 [facility] Comment on above: Performed By: #### V ANCU #### [facility] [address] [place] [address] Daily Progress Note-Medicine on 10-25-2022 Daily Progress Note-Medicine Service: Medicine Subjective Data: GRACIE BANUELOS is a 57 year old Female who is Hospital Day # 3. No overnight events. Pt states the swelling in her right eye is better. She endorses at least 3 episodes of diarrhea a day since she came here. Objective Data: Objective Information: T PRBPMAPSpO2 Value36.39454449/6893% Date/Time10/25 6: 6: 6: 6: 6:08 Range(36C [...] that it started the day she left [facility]. C. diff work up at [facility] came back negative - Likely due to Abx - Started on Immodium as needed - Will consider C diff PC (more content not included)... Normal [facility] Daily Progress Note-Ophthalm ologyon 10-25-2022 Daily Progress Note-Ophthalmology Service: Ophthalmology Subjective Data: GRACIE BANUELOS is a 57 year old Female who is Hospital Day # 3. Objective Data: Objective Information: T PRBPMAPSpO2 Value36.16084393/6893% Date/Time10/25 6: 6: 6: 6: 6:08 Range(36C [...] progressed. On 10/19/22 she presented to the [place] [facility] Department and CT orbits showed findings concerning for right orbital cellulitis. WBC was reportedly 13.9, ESR 75, and CRP 42.6. She was prescribed clindamycin to take at home, but her pain only worsened and she presented to [facility] on 10/20/22 for further management. MRI [...] CT Orbit Sella Inner, by report from [employer] shows: 1. Marked abnormality of the soft [...] which I personally reviewed, by report from [employer] shows Abnormal infiltration throughout the right retroantral and extraconal fat as well as the pterygopalatine fo (more content not included)... Normal [facility] Laboratory - Hematology and Cell countson 10-25-2022 Erythrocyte distribution width (RBC) [Ratio] 13.3 % See Below [employer] Work Phone: Comment on above: Reference Range: 11. 5 - 14.5 Hematocrit (Bld) [Volume fraction] 34.5 % below low threshold See Below [employer] Work Phone: Comment on above: Reference Range: 36. 0 - 46.0 Hemoglobin (Bld) [Mass/Vol] 11.5 g/dL below low threshold See Below [employer] Work Phone: Comment on above: Reference Range: 12. 0 - 16.0 MCHC (RBC) [Mass/Vol] 33.3 g/dL See Below [employer] Work Phone: Comment on above: Reference Range: [...] Nom (Bld) No growth in 5 days. [facility] Lysozyme, Serumon 10-25-2022 Lysozyme [Mass/Vol] 9.0 [...] Low 3.4 - 5.0 [facility] Comment on above: Performed By: #### U A #### [facility] [address] [place] [address] Anion gap [Moles/Vol] 13 mmol/L Normal 10 - 20 [facility] Comment on above: Performed By: #### U A #### [facility] [address] [place] [address] Calcium [Mass/Vol] 9.0 mg/dL Normal 8.6 - 10.6 [facility] Comment on above: Performed By: #### U A #### [place] [address] [place] [address] Chloride [Moles/Vol] 101 mmol/L Normal 98 - 107 [facility] Comment on above: Performed By: #### U A #### [facility] [address] [place] [address] Creatinine [Mass/Vol] 1.09 mg/dL High 0.50 - 1.05 [facility] Comment on above: Performed By: #### U A #### [facility] [address] [place] [address] GFR/1.73 sq M.predicted among non-blacks MDRD (S/P/Bld) [Vol rate/Area] 58 mL/min/{1.73_m2} Abnormal >90 [facility] Comment on above: Result Comment: CALC ULATIONS OF ESTIMATED GFR ARE PERFORMED USING THE 2020 CKD-EPI STUDY REFIT EQUATION WITHOUT THE RACE VARIABLE FOR THE IDMS-TRACEABLE CREATININE METHODS. https://jasn.asnjournals.org/content//ASN.21874 45965 Performed By: #### U A #### [facility] [address] [place] [address] Glucose [Mass/Vol] 104 mg/dL High 74 - 99 [facility] Comment on above: Performed By: #### U A #### [facility] [address] [place] [address] HCO3 (Bld) [Moles/Vol] 25 mmol/L Normal 21 - 32 [facility] Comment on above: Performed By: #### U A #### [facility] [address] [place] [address] Phosphate [Mass/Vol] 4.3 mg/dL Normal 2.5 - 4.9 [facility] Comment on above: Result Comment: The performance characteristics of phosphorus testing in heparinized plasma have been validated by the individual laboratory site where testing is performed. Testing on heparinized plasma is not approved by the FDA; however, such approval is not necessary. Performed By: #### U A #### [facility] [address] [place] [address] Potassium [Moles/Vol] 3.7 mmol/L Normal 3.5 - 5.3 [facility] Comment on above: Performed By: #### U A #### [facility] [address] [place] [address] Sodium [Moles/Vol] 135 mmol/L Low 136 - 145 [facility] Comment on above: Performed By: #### U A #### [facility] [address] [place] [address] Urea nitrogen [Mass/Vol] 10 mg/dL Normal 6 - 23 [facility] Comment on above: Performed By: #### U A #### [facility] [address] [place] [address] RPR WITH TITER SYPHILIS ESTELLA TORINGon 10-25-2022 RPR MONITORING Canceled Normal [facility] Comment on above: Order Comment: TEST RPR WITH TITER SYPHILIS MONITORING WAS CANCELLED, 10/25/2022 00:46 RBS update.. Performed By: #### R PRSM #### [facility] [address] [place] [address] Lab Specimen Source Normal [facility] Comment on above: Order Comment: TEST RPR WITH TITER SYPHILIS MONITORING WAS CANCELLED, 10/25/2022 00:46 RBS update.. Performed By: #### R PRSM #### [facility] [address] [place] [address] Renal Function Panelon 10-25 Albumin BCP dye [Mass/Vol] 3.3 g/dL below low threshold 3.4 - 5.0 [facility] Work Phone: Anion gap [Moles/Vol] 13 mmol/L 10 - 20 [facility] Work Phone: [phone] Calcium [Mass/Vol] 9.0 mg/dL 8.6 - 10.6 [facility] icineSierra Giang Work Phone: [phone] Chloride [Moles/Vol] 101 mmol/L 98 - 107 [facility] edrigoberto Giang Work Phone: [phone] CO2 [Moles/Vol] 25 mmol/L 21 - 32 [facility]ici neSierra Giang Work Phone: [phone] Creatinine [Mass/Vol] 1.09 mg/dL above high threshold See Below [facility]-MedicineSierra Giang Work Phone: [phone] Comment on above: Reference Range: 0.5 0 - 1.05 Glucose [Mass/Vol] 104 mg/dL above high threshold 74 - 99 [facility] Work Phone: Phosphate [Mass/Vol] 4.3 mg/dL 2.5 - 4.9 [facility] mack [facility]ang Work Phone: [phone] Comment on above: The performance bruce acteristics [...] 136 - 145 [facility] Work Phone: [phone] Urea nitrogen [Mass/Vol] 10 mg/dL 6 - 23 [facility] Work Phone: [phone] Renal Function Panel 58 {mL/min/1.73m2} Abnormal >90 [facility] Work Phone: Comment on above: CALCULATIONS OF PAVAN MATED GFR ARE PERFORMED USING THE 2020 CKD-EPI STUDY REFIT EQUATION WITHOUT THE RACE VARIABLE FOR THE IDMS-TRACEABLE CREATININE METHODS.https://jasn.asnjournals.org/content/early//A SN.8189952344 SYPHILIS SCREENING WITH REFL EXon 10-25-2022 SYPHILIS TOTAL AB Non-Reactive Normal NONREACTIVE [facility] Comment on above: Result Comment: No s ignificant level of Treponema pallidum antibody detected. 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 Performed By: #### U A #### [facility] [address] [place] [address] Lab Specimen Source Normal [facility] Comment on above: Performed By: #### U A #### [facility] [address] [place] [address] T. pallidum IgG+IgM IA Ql (S) Non-Reactive See Below [employer] Work Phone: Comment on above: SOURCE: Reference Ra nge: NONREACTIVENo significant level of Treponema pallidum antibody detected. 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 VANCOMYCIN,TROUGHon 10-25-19 23 VANCOMYCIN,TROUGH 27.0 ug/mL Critically high 5.0 - 20.0 [facility] Comment on above: Order Comment: VANCT CALLED [...] WAGONER, 10/25/2022 17:09 Performed By: #### A [facility] #### [facility] [employer] [address] [place] [address] Vancomycin Level, Troughon 0 10-25-2022 Vancomycin trough [Mass/Vol] 27.0 ug/mL Critically high 5.0 - 20.0 [employer] Work Phone: Comment on above: Vancomycin levels [...] AlertFor Ebola-like Symptoms: Isolate Patient and Notify Provider/[employer] Operator For Contact: Notify Provider/[employer] Operator Advance Directive: Advance Directive/DNRno Advance Directive [...] video; verbal instruction Cultural Considerationsnone Developmental Considerationsnone Faith Considerationsnone Learning Assessment (Other Learner): Other learner availableno Depression Screen: During the past month, have you often been bothered by feeling down, depressed or hopelessno During the past month, have you often had little interest or pleasure in doing thingsno Have you had any thoughts of harming anyone elseno [place] Suicide: Risk Screen Not Applicable/Able to Answerable to be screened In the Past Month: Have you wished you were or could go to sleep and not wake upno In the Past Month: Have you had any actual thoughts of killing yourselfno Lifetime: Have you ever done, started to do, or prepared to do anything to end your lifeno [place] Suicide Risknegative Adult Nutrition Screen: Have you [...] Spiritual Screen: Are there any cultural, spiritual, latter day practices/values/needs that are important for us to knowno CAGE: Is this an inju (more content not included)... Normal [facility] C Reactive Protein, Serumon 10-24-2022 CRP [Mass/Vol] 6.50 mg/dL Abnormal [facility]Medicin cherry- Wilfrid [facility]ang Work Phone: Comment on above: REF VALUE< 1.00 C-REACTIVE PROTEINon 023 C-REACTIVE PROTEIN 6.50 mg/dL Abnormal [facility] Comment on above: Result Comment: REF VALUE < 1.00 Performed By: #### U A #### [facility] [address] [place] [address] CBC AND DIFFERENTIALon 10-24 % AUTOMATED IMMATURE GRAN 0.5 % Normal 0.0 - 0.9 [facility] Comment on above: Result Comment: Iram ture Granulocyte Count (IG) includes promyelocytes, myelocytes and metamyelocytes but does not include bands. Percent differential counts (%) should be interpreted in the context of the absolute cell counts (cells/L). Performed By: #### C BCDF #### [facility] [address] [place] [address] Basophils (Bld) [#/Vol] 0.11 10*3/uL High 0.00 - 0.10 [facility] Comment on above: Performed By: #### C BCDF #### [facility] [address] [place] [address] Basophils/100 WBC (Bld) 1.1 % Normal 0.0 - 2.0 [facility] Comment on above: Performed By: #### C BCDF #### [facility] [address] [place] [address] Eosinophils (Bld) [#/Vol] 0.75 10*3/uL High 0.00 - 0.70 [facility] Comment on above: Performed By: #### C BCDF #### [facility] [address] [place] [address] Eosinophils/100 WBC (Bld) 7.2 % Normal 0.0 - 6.0 [facility] Comment on above: Performed By: #### C BCDF #### [facility] [address] [place] [address] Erythrocyte distribution width (RBC) [Ratio] 13.4 % Normal 11.5 - 14.5 [facility] Comment on above: Performed By: #### C BCDF #### [facility] [address] [place] [address] Hematocrit (Bld) [Volume fraction] 34.0 % Low 36.0 - 46.0 [facility] Comment on above: Performed By: #### C BCDF #### [facility] [address] [place] [address] Hemoglobin (Bld) [Mass/Vol] 11.4 g/dL Low 12.0 - 16.0 [facility] Comment on above: Performed By: #### C BCDF #### [facility] [address] [place] [address] Lymphocytes (Bld) [#/Vol] 1.67 10*3/uL Normal 1.20 - 4.80 [facility] Comment on above: Performed By: #### C BCDF #### [facility] [address] [place] [address] Lymphocytes/100 WBC (Bld) 16.0 % Normal 13.0 - 44.0 [facility] Comment on above: Performed By: #### C BCDF #### [facility] [address] [place] [address] MCHC (RBC) [Mass/Vol] 33.5 g/dL Normal 32.0 - 36.0 [facility] Comment on above: Performed By: #### C BCDF #### [facility] [address] [place] [address] MCV (RBC) [Entitic vol] 82 fL Normal 80 - 100 [facility] Comment on above: Performed By: #### C BCDF #### [facility] [address] [place] [address] Monocytes (Bld) [#/Vol] 1.19 10*3/uL High 0.10 - 1.00 [facility] Comment on above: Performed By: #### C BCDF #### [facility] [address] [place] [address] Monocytes/100 WBC (Bld) 11.4 % Normal 2.0 - 10.0 [facility] Comment on above: Performed By: #### C BCDF #### [facility] [address] [place] [address] Neutrophils (Bld) [#/Vol] 6.68 10*3/uL Normal 1.20 - 7.70 [facility] Comment on above: Performed By: #### C BCDF #### [facility] [address] [place] [address] Neutrophils/100 WBC (Bld) 63.8 % Normal 40.0 - 80.0 [facility] Comment on above: Performed By: #### C BCDF #### [facility] [address] [place] [address] NUCLEATED RBC 0.0 /100 WBC Normal 0.0-0.0 [facility] Comment on above: Performed By: #### C BCDF #### [facility] [address] [place] [address] Platelets (Bld) [#/Vol] 322 10*3/uL Normal 150 - 450 [facility] Comment on above: Performed By: #### C BCDF #### [facility] [address] [place] [address] RBC 4.16 x10E12/L Normal 4.00 - 5.20 [facility] Comment on above: Performed By: #### C BCDF #### [facility] [address] [place] [address] WBC (Bld) [#/Vol] 10.5 10*3/uL Normal 4.4 - 11.3 [facility] Comment on above: Performed By: #### C BCDF #### [facility] [address] [place] [address] COMPREHENSIVE PANELon 2022 Albumin [Mass/Vol] 3.6 g/dL Normal 3.4 - 5.0 [facility] Comment on above: Performed By: #### C MP #### [facility] [address] [place] [address] ALP [Catalytic activity/Vol] 107 U/L Normal 33 - 110 [facility] Comment on above: Performed By: #### C MP #### [facility] [address] [place] [address] ALT [Catalytic activity/Vol] 23 U/L Normal 7 - 45 [facility] Comment on above: Result Comment: Gretta ents treated with Sulfasalazine may generate falsely decreased results for ALT. Performed By: #### C MP #### [facility] [address] [place] [address] Anion gap [Moles/Vol] 15 mmol/L Normal 10 - 20 [facility] Comment on above: Performed By: #### C MP #### [facility] [address] [place] [address] AST [Catalytic activity/Vol] 26 U/L Normal 9 - 39 [facility] Comment on above: Performed By: #### C MP #### [facility] [address] [place] [address] Bilirubin [Mass/Vol] 0.3 mg/dL Normal 0.0 - 1.2 [facility] Comment on above: Performed By: #### C MP #### [facility] [address] [place] [address] Calcium [Mass/Vol] 9.2 mg/dL Normal 8.6 - 10.6 [facility] Comment on above: Performed By: #### C MP #### [facility] [address] [place] [address] Chloride [Moles/Vol] 103 mmol/L Normal 98 - 107 [facility] Comment on above: Performed By: #### C MP #### [facility] [address] [place] [address] Creatinine [Mass/Vol] 0.92 mg/dL Normal 0.50 - 1.05 [facility] Comment on above: Performed By: #### C MP #### [facility] [address] [place] [address] GFR/1.73 sq M.predicted among non-blacks MDRD (S/P/Bld) [Vol rate/Area] 72 mL/min/{1.73_m2} Normal >90 [facility] Comment on above: Result Comment: CALC ULATIONS OF ESTIMATED GFR ARE PERFORMED USING THE 2020 CKD-EPI STUDY REFIT EQUATION WITHOUT THE RACE VARIABLE FOR THE IDMS-TRACEABLE CREATININE METHODS. https://jasn.asnjournals.org/content/early//ASN.42857 03636 Performed By: #### C MP #### [facility] [address] [place] [address] Glucose [Mass/Vol] 95 mg/dL Normal 74 - 99 [facility] Comment on above: Performed By: #### C MP #### [facility] [address] [place] [address] HCO3 (Bld) [Moles/Vol] 25 mmol/L Normal 21 - 32 [facility] Comment on above: Performed By: #### C MP #### [facility] [address] [place] [address] Potassium [Moles/Vol] 4.1 mmol/L Normal 3.5 - 5.3 [facility] Comment on above: Performed By: #### C MP #### [facility] [address] [place] [address] Protein [Mass/Vol] 6.4 g/dL Normal 6.4 - 8.2 [facility] Comment on above: Performed By: #### C MP #### [facility] [address] [place] [address] Sodium [Moles/Vol] 139 mmol/L Normal 136 - 145 [facility] Comment on above: Performed By: #### C MP #### [facility] [address] [place] [address] Urea nitrogen [Mass/Vol] 9 mg/dL Normal 6 - 23 [facility] Comment on above: Performed By: #### C MP #### [facility] [address] [place] [address] Clinical Event Note-AH@H Scr eenon 10-24-2022 Clinical Event Note-AH@H Screen Clinical Event: Clinical Event Note: TopicAH@H Screen Details Patient was referred to AH@H program. Upon review with Provider and/or Social Assessment patient does not qualify for the program due to pt declined. 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 Sources used to confirm home medication list: Patient interview/ HIE [facility] 10/20/2022 Additional comments: Patient was recently discharged from [facility] on 10/23/2022. Creon dosage was confirmed with patient of 24,000 units 1 capsule 3 times a day with meals. Medication reconciliation complete Please reach out via [employer] for questions Brandi Lr, ShondaD, Meds Meds Ambulatory and Retail Services Is This Intervention Medication Reconciliation Relatedyes Time [id number] - 60 minutes Additional NotesDrug Name: mirtazapine [...] Constance Buckley ([facility]) Normal [facility] Complete Blood Count + Diffe suhason 10-24-2022 Basophils/100 WBC (Bld) 1.1 % 0.0 - 2.0 [facility] Wil[facility]id [facility] Work Phone: Erythrocyte distribution width (RBC) [Ratio] 13.4 % See Below [facility] Work Phone: Comment on above: Reference Range: 11. 5 - 14.5 Hematocrit (Bld) [Volume fraction] 34.0 % below low threshold See Below [facility]- [facility] Work Phone: Comment on above: Reference Range: 36. 0 - 46.0 Hemoglobin (Bld) [Mass/Vol] 11.4 g/dL below low threshold See Below [facility]- Wilfrid [facility]ang Work Phone: Comment on above: Reference Range: 12. 0 - 16.0 Lymphocytes/100 WBC (Bld) 16.0 % See Below [email or web address] [facility] Work Phone: Comment on above: Reference Range: 13. 0 - 44.0 MCHC (RBC) [Mass/Vol] 33.5 g/dL See Below MG Ulices [facility]ang Work Phone: Comment on above: Reference Range: 32. 0 - 36.0 MCV (RBC) [Entitic vol] 82 fL 80 - 100 -lUices Giang Work Phone: [phone] Monocytes/100 WBC (Bld) 11.4 % 2.0 - 10.0 Jerod Giang Work Phone: [phone] Neutrophils/100 WBC (Bld) 63.8 % See Below Jerod Giang Work Phone: [phone] Comment on above: Reference Range: 40. 0 - 80.0 Platelets (Bld) [#/Vol] 322 10*3/uL 150 - 450 [facility] Work Phone: [phone] RBC (Bld) [#/Vol] 4.16 {x10E12/L} See Below MG Nathalie Giang Work Phone: [phone] Comment on above: Reference Range: 4.0 0 - 5.20 WBC (Bld) [#/Vol] 10.5 10*3/uL 4.4 - 11.3 -Nm dicineSierra Giang Work Phone: Complete Blood Count + Differential 0.11 {x10E9/L} above high threshold See Below MGNathalie Giang Work Phone: Comment on above: Reference Range: 0.0 0 - 0.10 Complete Blood Count + Differential 0.75 {x10E9/L} above high threshold See Below [facility] Work Phone: [phone] Comment on above: Reference Range: 0.0 0 - 0.70 Complete Blood Count + Differential 1.19 {x10E9/L} above high threshold See Below [facility] Work Phone: [phone] Comment on above: Reference Range: 0.1 0 - 1.00 Complete Blood Count + Differential 1.67 {x10E9/L} See Below -Ulices [facility]ang Work Phone: [phone] Comment on above: Reference Range: 1.2 0 - 4.80 Complete Blood Count + Differential 6.68 {x10E9/L} See Below [facility]OMINGONallatechSierra Yuen Giang Work Phone: Comment on above: Reference Range: 1.2 0 - 7.70 Complete Blood Count + Differential 7.2 % 0.0 - 6.0 [facility] Wilfrid Giang Work Phone: Complete Blood Count + Differential 0.5 % 0.0 - 0.9 [facility] Work Phone: Comment on above: Immature Granulocyte Count (IG) includes promyelocytes, myelocytes and metamyelocytes but does not include bands. Percent differential counts (%) should be interpreted in the context of the absolute cell counts (cells/L). Complete Blood Count + Differential 0.0 {/100_WBC} 0.0-0.0 [facility] Work Phone: Consult-ENTon 10-24-2022 Consult-ENT Service: Service: ENT Consult: Consult requested by (Attending Name): Tai Peoples Reason: 57 yo female coming [facility] as a transfer from [facility] for R eye evaluation for a cut-down biopsy of diffuse inflitration from the orbit into surroiunding tissue. Pt had an extensive work up at [facility] and [place] and rheumatologic or infectious causes [...] imaging. Pt noted to originally present to [facility] for 1 month of worseninig right eye pain/right headache/episodes of blurry and double vision without other symptoms. Denies eye trauma. Denies similar prior episodes. Denies nasal congestion/drainage. No inciting event. No relief with outpt antibiotics. At [facility] some improvement noted with antibiotics. Rheum c/s determined no rheum cause. Has not tried steroids yet. ENT at [facility] determined no need for biopsy at that [...] a 57 year old female transferred from [facility] for evaluation by oculoplastics here for [...] Fortino Mathews DO, PGY2 Adult Service Pager: [phone] Peds Service Pager: [phone] [phone]. Review Family/Social History and ROS: Social History: Smoking Status: unable to assess (1) Alcohol Use: denies(1) Drug Use: denies (1) Allergies: penicillin: Hives/Urticaria Consult Status: Consult Order ID: [id number] Attestation: Note Completion: I am a: Resident/Fellow [...] the note. I personally evaluated the patient [id number] Electronic Signatures: Fortino Mathews ( (R (more content not included)... Normal [facility] Consult-Infectious Diseaseon 10-24-2022 Consult-Infectious Disease Service: Service: Infectious Disease Consult: Consult requested by (Attending Name): Tai Peoples Reason: 57 year old woman who is presenting as a transfer to [facility] from [facility] for further management of preseptal cellulitis vs. infiltrative process of her right eye seen on MRI orbit. ID at [facility] recommended Vanc/zosyn History of Present Illness: HPI: GRACIE BANUELOS is a 57 year old woman pmhx sig for COPD, HTN, transferred from [facility] on 10/23 for inflammatory eye disease/possible preseptal cellulitis. HPI per notes and pt. Pt reports ~1 mos R eye redness, swelling and pain. Was treated by outpt eye doctor w/ azithromycin x 5 days on 10/17. Presented to [facility]. Given 1 dose clindamycin and transferred to [facility]. Admits to having fever and chills prior to [facility] admission, but describes them [...] candles. Never had this before. 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 Normal [facility] Consult-Ophthalmologyon 09-29 Consult-Ophthalmology Service: Service: Ophthalmology Consult: Consult requested by (Attending Name): Tai Peoples Reason: 57 yo female coming as a transfer from [facility] for R eye evaluation for oculoplastic need for a cut-down biopsy of diffuse inflitration from the orbit into surroiunding tissue. Pt had an extensive work up at [facility] and [place] and rheumatologic or infectious causes were ruled [...] progressed. On 10/19/22 she presented to the [place] Emergency Department and CT orbits showed findings concerning for right orbital cellulitis. WBC was reportedly 13.9, ESR 75, and CRP 42.6. She was prescribed clindamycin to take at home, but her pain only worsened and she presented to [facility] on 10/20/22 for further management. MRI [...] CT Orbit Sella Inner, by report from [employer] shows: 1. Marked abnormality of the soft [...] which I personally reviewed, by report from [employer] shows Abnormal infiltration throughout the right retroantral and extraconal fat as well as the pterygopalatine fossa and diffusely throughout the right client director space with asymmetry of the muscles of mastication. Additional mild enlargement of the right inferior and lateral rectus. These findings are highly concerning for invasive fungal sinusitis until proven otherwise. Mild as (more content not included)... Normal [facility] Discharge Planning Cebk9ys 0 10-24-2022 Discharge Planning Note2 Discharge Planning: Needs Prior to Discharge (ex. Home Care Orders, IV/O2 prescriptions) f/u appts Discharge Barriersnone Planned Dispositionhome Discharge DestinationHome with family vs HC if IV abx needed AMPAC < 20no Anticipated Discharge [id number] Discharge Planning 10/23/22-Admission [id number] arrived to unit from [facility] via stretcher per community [...] Await ID reccs; opthalmology on board. Payer: [facility] Status: inpatient Discharge disposition: HC RN if IV abx needed. Potential Barriers: none ADOD: 10/29 Vicki Varela RNperinatal technician Coordinator Assessment: Discharge Planning Assessment Discharge Planning Assessment Completed byVicki Varela RNperinatal technician Coordinator Primary Contact Name and NumberTina Augustine (sister)-[phone] Prior Level of Functioningind with ADLS Lives Withadult child(rama); dependent child(rama); daughter and granddaughter Living Arrangementshouse PCPJoy Older [facility] [place] Recent Falls/ Injury/ Need Assist with Ambulationdenies Equipment Currently Used at [facility] DME Supplier Name/Numbern/a Home Care Agency/Support Servicesn/a Diabetic/Supplies Neededn/a Hemodialysis Schedulen/a [facility] Anticipated at Transitionnone PCP Last Date Seencouple months ago InsuranceCaresource Equipment Needed After Dischargenone Anticipated Discharge Facility/Level of Care Needs.Home Discharge Planning CommentsPt has transportation to medical appointments, feels safe at home. Address, phone and emergency contact information verified. All questions and concerns answered. Will continue to follow for discharge needs. Vicki Varela RNperinatal technician Coordinator Social Determinants of Health Identifiedpast hx [...] 13:57 by Vicki Varela (CLIN COOR) Normal [facility] Discharge [id number] 023 Discharge Profile2 Discharge Orders: Anticipated Discharge Date: Anticipated Discharge [id number] DNAR: Code Status at Discharge: Full Code Activity: activity as tolerated. Diet: Dietregular Labs 1: Lab Test(s)RFP Date To Be Drawn10/30/22 Call Results ToSoila Easton CNP or Fax Results [phone] CommentsPCP consider monitoring improvement of CHUY upon recent hospital admission Oxygen: Administer oxygen at 2 liters/min via nasal cannula to maintain SpO2 % of 88-92 with activity. Additional Orders: Additional Instructions Dear Ms. Banuelos, You presented to us as transfer from [facility] for a possible biopsy of the [...] vs. infiltrative mass. Vanc/zosyn were started at [facility]. Oculoplastic were consulted and [...] for ReferralEstablish with Primary Care Provider Scheduled Date/[id number] 16:[address], [address] [place] [address] fax Phone [phone] CommentsPlease bring your insurance card, photo id, a list of medication in the original bottle, any co-pays you may have, and the discharge summary Follow-Up Appointment 02: Physician/Dept/YaelOp hthalmology: Dr Ortega Scheduled Date/[id number] 15:30 [facility] [address] , [address] [facility] [address] CommentsPlease bring your insurance card, photo id, a list of medication in the original bottle, any co-pays you may have, and the discharge summary Follow-Up Appointment 03: Physician/Dept/ServiceCathryn Easton CNP Call to Schedule inPatient is to call upon discharge and schedule follow up for Thursday10/31/[address] [place] [address] or Electronic Signatures: Annie Escobedo (PT ACC REP) (Signed 28-Oct-2022 09:45) Authored: Discharge Orders, Appointments Justyn Richter ( (Resident)) (Signed 29-Oct-2022 11:30) Authored: Discharge Orders, Hospital Course (Home Care/Gold Form), Provider FINAL REVIEW of Orders Katina Booker (SENIOR ERP CONSULTANT-PROPERTY DISPOSAL OFFICER) (Signed 28-Oct-2022 09:22) Authored: Discharge Orders, Provider FINAL REVIEW of Orders, Gold Form - Fast Food Delivery Driver Summary Donn Trammell ( (Resident)) (Signed 29-Oct-2022 12:36) Authored: Discharge Orders, Hospital Course (Home Care/Gold Form), Provider FINAL REVIEW of Orders, Appointments Last Updated: 29-Oct-2022 12:36 by Donn Trammell ( (Resident)) Normal [facility] Electrocardiogram 12 Leadon 10-24-2022 Electrocardiogram 12 Lead Ventricular Rate 82 Atrial Rate 82 P-R Interval 168 QRS Duration 74 Q-T Interval 394 QTC Calculation(Bazett) 460 P Dodge 50 R Dodge 76 T Dodge 79 QRS Count 14 Q Onset 233 P Onset 149 P Offset 196 T Offset 430 QTC Fredericia 437 Diagnosis Class Abnormal Diagnosis Normal sinus rhythm Anterior infarct , age undetermined Abnormal ECG No previous ECGs available Confirmed by Dinesh Najera ([id number]) on 10/24/2022 11:13:15 AM Normal [facility] Laboratory - Chemistry and C hemistry - challengeon 10-24-2022 Albumin BCP dye [Mass/Vol] 3.6 g/dL 3.4 - 5.0 [facility] [employer] Work Phone: ALP [Catalytic activity/Vol] 107 U/L 33 - 110 [facility] Work Phone: ALT With P-5'-P [Catalytic activity/Vol] 23 U/L 7 - 45 [facility] Work Phone: [phone] Comment on above: Patients treated wit h Sulfasalazine may generate falsely decreased results for ALT. Anion gap [Moles/Vol] 15 mmol/L 10 - 20 [facility] Work Phone: [phone] AST With P-5'-P [Catalytic activity/Vol] 26 U/L 9 - 39 [facility] Work Phone: [phone] Bilirubin [Mass/Vol] 0.3 mg/dL 0.0 - 1.2 [facility] johanny Wilfrid Giang Work Phone: [phone] Calcium [Mass/Vol] 9.2 mg/dL 8.6 - 10.6 [facility] rigoberto Yuen Giang Work Phone: [phone] Chloride [Moles/Vol] 103 mmol/L 98 - 107 [facility] mack Giang Work Phone: [phone] CO2 [Moles/Vol] 25 mmol/L 21 - 32 [facility] Wilfrid Giang Work Phone: [phone] Creatinine [Mass/Vol] 0.92 mg/dL See Below [facility] Ulices Giang Work Phone: [phone] Comment on above: Reference Range: 0.5 0 - 1.05 Glucose [Mass/Vol] 95 mg/dL 74 - 99 [facility] rigoberto Giang Work Phone: [phone] Potassium [Moles/Vol] 4.1 mmol/L 3.5 - 5.3 [facility]- Ulices Yuen [facility] Work Phone: [phone] Protein [Mass/Vol] 6.4 g/dL 6.4 - 8.2 [facility] rigoberto Yuen Giang Work Phone: [phone] Sodium [Moles/Vol] 139 mmol/L 136 - 145 [facility] rigoberto Yuen [facility] Work Phone: [phone] Urea nitrogen [Mass/Vol] 9 mg/dL 6 - 23 [facility]icine[facility]ierra Yuen [facility] Work Phone: [phone] MAGNESIUMon 10-24-2022 Magnesium [Mass/Vol] 1.75 mg/dL Normal 1.60 - 2.40 [facility] Comment on above: Performed By: #### V ANCU #### [facility] [address] [place] [address] Magnesium, Serumon Magnesium [Mass/Vol] 1.75 mg/dL See Below [facility] ed[facility]- Wil[facility] Work Phone: [phone] Comment on above: Reference Range: 1.6 0 - 2.40 No Panel Informationon 10-24 72 {mL/min/1.73m2} >90 [facility] icine- Wilfrid Giang Work Phone: [phone] Comment on above: CALCULATIONS OF PAVAN MATED GFR ARE PERFORMED USING THE 2020 CKD-EPI STUDY REFIT EQUATION WITHOUT THE RACE VARIABLE FOR THE IDMS-TRACEABLE CREATININE METHODS.https://jasn.asnjournals.org/content//A SN.3306258894 https://MUSEXPRDWE B01: 8080/musescripts/museweb .dll?RetrieveTestByDateT ryan?IkhruzrDK=[id number]& Date=24-10-2022&Time=06% 3a25%3a35%3a00&TestType= ECG&Site=1&OutputType=PD F&Ext=PDF [facility] Work Phone: [phone] Normal sinus rhythm [facility] d[facility]- Wilfrid Giang Work Phone: [phone] Abnormal [facility] Wilfridjodi Giang Work Phone: [phone] [facility] Work Phone: [phone] [facility] Wilfrid Rahat Work Phone: [phone] [facility] Wilfrid Rahat Work Phone: [phone] [facility] Work Phone: [phone] [facility] Wilfrid Rahat Work Phone: [...] (Advanced Practice Nurse-Admit) done by Katina Booker ([facility]) Discharge - Partial Reconciliation: 24-Oct-2022 08:06 by: Katina Booker ([facility]) Discharge - Partial Reconciliation: 27-Oct-2022 06:53 by: Katina Booker ([facility]) Discharge - Partial Reconciliation: 27-Oct-2022 07:55 by: Katina Booker ([facility]) Discharge - Partial Reconciliation: 27-Oct-2022 13:27 by: Katina Booker ([facility]) Discharge - Partial Reconciliation: 28-Oct-2022 07:04 by: Katina Booker ([facility]) Discharge - Reconciliation: 28-Oct-2022 07:09 by: Katina Booker ([facility]) Discharge - Reset to Incomplete: 28-Oct-2022 07:11 by: Katina Booker ([facility]) Discharge - Reconciliation: 28-Oct-2022 07:11 by: Katina Booker ([facility]) Discharge - Reset to Incomplete: 28-Oct-2022 09:07 by: Katina Booker ([facility]) Discharge - Partial Reconciliation: 28-Oct-2022 09:08 by: Katina Booker ([facility]) Discharge - Reconciliation: 28-Oct-2022 09:08 by: Katina Booker ([facility]) Discharge - Reset to Incomplete: 28-Oct-2022 09:09 by: Katina Booker ([facility]) Discharge - Reconciliation: 28-Oct-2022 09:16 by: Katina Booker ([facility]) Discharge - Reset to Incomplete: 28-Oct-2022 10:10 by: Donn Trammell ( (Resident)) Discharge - Reconciliation: 28-Oct-2022 10:16 by: Donn Trammell ( (Resident)) Discharge - Reset to Incomplete: 28-Oct-2022 11:05 by: Noemí Asif ( (Resident)) Discharge - Partial Reconciliation: 28-Oct-2022 11:06 by: Noemí Asif ( (Resident)) Discharge - Reconciliation: 28-Oct-2022 11:08 by: Katina Booker ([facility]) Discharge - Reset to Incomplete: 29-Oct-2022 07:20 by: Katina Booker ([facility]) Discharge - Partial Reconciliation: 29-Oct-2022 07:21 by: Katina Booker ([facility]) Discharge - Reconciliation: 29-Oct-2022 08:21 by: Katina Booker ([facility]) Discharge - Reset to Incomplete: 29-Oct-2022 11:27 by: Katina Booker ([facility]) Discharge - Reconciliation: 29-Oct-2022 11:31 by: Katina Booker ([facility]) Discharge - Reset to Incomplete: 29-Oct-2022 13:31 by: Katina Booker ([facility]) Discharge - Reconciliation: 29-Oct-2022 13:34 by: Katina Booker ([facility]) Home Medications EnteredHOME MEDICATIONS AT DISCHARGE DateReconciliation [...] 2 inha (more content not included)... Normal [facility] Order Reconciliation Page 1 Admission Reconciliation Document [...] Notes: Was receiving vancomycin 1,250mg q12h at [facility] [employer], last dose given 1700 on 10/23. Vancomycin trough 17.4 obtained 10/23 16:19 Normal [facility] Patient Profile - Adult v2on 10-24-2022 Patient [...] Health: Weight in kg60.1 kilogram(s)(1) Weight in arj450.4 pound(s) Weight Methodactual (measured) Scale Typebed Height [...] From History and Physical 24-Oct-2022 02:31 Normal [facility] SEDIMENTATION RATE, ERYTHROC YTEon 10-24-2022 SEDIMENTATION RATE, ERYTHROCYTE 80 mm/h High 0 - 30 [facility] Comment on above: Performed By: #### V ANCU #### [facility] [address] [place] [address] Sedimentation Rate, Erythroc yteon 10-24-2022 ESR (Bld) [Velocity] 80 mm/h above high threshold 0 - 30 [facility] Work Phone: [phone] T-SPOT. TBon 10-24-2022 T-SPOT. TB Passed [facility] Work Phone: [phone] T-SPOT. TB 0 1 [facility] Work Phone: [phone] T-SPOT. TB Negative See Below [facility] Wil[facility] Work Phone: [phone] Comment on above: Reference Range: Nor [...] 10-23-2022 MYELOPEROXIDASE < 0.2 Normal <1.0 [facility] [employer] Comment on above: Performed By: #### A NCA ROCHA VAS #### [facility] [address] [place] [address], MYELOPEROXIDASE INTERPRETATION Negative Normal Negative [facility] Comment on above: Performed By: #### A NCA ROCHA VAS #### [facility] [address] [place] [address], PROTEINASE-3 < 0.2 Normal <1.0 [facility] Comment on above: Performed By: #### A NCA ROCHA VAS #### [facility] [address] [place], [place], PROTEINASE-3 INTERPRETATION Negative Normal Negative [facility] Comment on above: Performed By: #### A NCA ROCHA VAS #### [facility] [address] [place], [place], C-REACTIVE PROTEINon 023 CRP 4.6 mg/dL High <0.8 [facility] Comment on above: Performed By: #### T SH HS, T3, CRP #### [facility] [address] [place], [place], CLOSTRIDIUM DIFFICILEon 09-29 CLOSTRIDIUM DIFFICILE Negative Normal Negative [facility] Comment on above: Order Comment: Resul ts obtained by using a real-time PCR based qualitative in vitro diagnostic test for the direct detection of the C. difficile toxin A gene (tcdA) and toxin B gene (tcdB) targets in stool specimens.Results should be interpreted in conjunction with information from the patient clinical evaluation and other diagnostic testing Performed By: #### C DD ####[facility] [id number] [facility] [place], [place] Care Plan Noteon 10-23-2022 [employer] Authentication Interface Message Text [facility] wait time is extensive per transfer. I spoke with pt and Domonique - they are agreeable to pursue . Please initiate transfer to Orbital surgery for biopsy Pt is accepted to [facility] by Dr. Jannette Eid, pending bed availability. However, as there is extensive wait time for the bed will initiate transfer. Normal [facility] [employer] Authentication Interface Message Text Problem: Routine Care: [...] and/or be maintained Outcome: Progressing Normal [facility] ERYTHROCYTE SEDIMENTATION RA Km 10-23-2022 ESR (Bld) [Velocity] 53 mm/h High <=30 [facility] Comment on above: Performed By: #### C OVID19 #### [facility] [address], [place], IMMUNOGLOBULIN Sudeep IgG [Mass/Vol] 842 mg/dL Normal [phone] [facility] Comment on above: Performed By: #### C OVID19 #### [facility] [address] [place], [place], NOVEL CORONAVIRUS (COVID-19) on 10-23-2022 SARS-CoV-2 (COVID-19) RNA KANDY+probe Ql (Unsp spec) Not detected Normal Not Detected [facility] Comment on above: Order Comment: Not D etected results are indicative of the absence of SARS-CoV-2 in the specimen submitted for testing. False negative results are possible based on the timing and quality of specimen submitted for testing. This test is intended for use only under Emergency Use Authorization (EUA). This test was developed, and its performance characteristics determined by [facility] which is certified under CLIA as qualified to perform high complexity clinical laboratory testing. Result Comment: This assay was performed using Emeli GISELLE RTPCR technology. Performed By: #### C OVID19 #### [facility] [address] [place], [place], Progress Noteson 10-23-2022 [employer] Authentication Interface Message Text 2329 Transferred to via ambulette Normal The [facility] Interface Message Text 2119 Received a call from that patient has a bed held for her. She will be going to [facility], [place] [address], Bed 0271. Requesting copy of chart to accompany pt. Call nursing report to [phone]. JACKELINE Thurman notified. 2148 Ambulance request placed. Patient notified. Chart being prepped by 6W US. 2330 Report called SARWAT Pastrana. Pt transported via ambulette with all belongings. Pt updated her family of her transfer. Normal The [employer] Authentication Interface Message Text Pharmacokinetic Dosing Service - VANCOMYCIN Name: Gracie Banuelos Age:[age] year old Gender: female Ht: 5' 3 Wt: no weight Indication: orbital cellulitis/MANAGER AUTO (?) Desired Ranges: 15-20 Day of therapy: 4 Assessment and Recommendations: 10/23/22 PLAPPONI- Day4: orbital cellulitis/MANAGER AUTO (?) ; Renal function: stable; Current level:17.4. [...] Source/Reason for Therapy Answer: Central Nervous System (MANAGER AUTO) -- 10/20/221652 vancomycin dosing pharmacy consult Other, As Directed Question: Suspected Source/Reason for Therapy Answer: Central Nervous System (MANAGER AUTO) -- Lab Values: Creatinine Date Value Ref Range Status 10/20/2022 0.56 0.50 - 1.10 mg/dL Final Lab Results Component Value Date/Time VANCTR 17.4 10/23/2022 04:19 PM VANCTR 16.6 10/21/2022 03:44 PM No results found for: VANCR Serum creatinine: 0.56 mg/dL 10/20/22 0910 Estimated creatinine clearance: 89.48 mL/min Culture(s): FRIEDA ANDERSON, [facility] - Department of Pharmacy Services Normal The [employer] Interface Message Text CM aware of transfer process that has begun to [facility]. CM will remain available to assist with discharge planning and needs as warranted. Katina GALLOWAY, second shift supervisor (8:30-4:00) Normal The [employer] Interface Message Text Daily follow up visit [...] Syphilis Tb - Recommend transfer to or [facility] for oculoplastics care. The patient will likely require a cut-down biopsy to determine etiology of inflammation, which [facility]. 2. 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 Pt Voices understanding of plan and AVS. Jaime Aggarwal MD Ophthalmology Resident Plan discussed with Dr. Kidd Normal The [facility] [employer] Authentication Interface Message Text ID FOLLOW UP [...] IV -Ophthalmology on board. Awaiting transfer to [facility] or for oculoplasty and biopsy to determine etiology due to concern for infiltrative process. -Consider repeat MRI orbit to reassess if transfer is delay. -Continue to monitor BM as she has diarrhea. Noted Cdiff negative. -Ok to remove contact precautions. ID will continue to follow Findings and recommendations discussed with Dr. Oliveira. Car Dorado MD ID fellow, PGY-4 Pager: [phone] Normal The [facility] RHEUMATOID FACTORon 10-23-19 23 RHEUMATOID FACTOR < 10 Normal <10 [facility] Comment on above: Performed By: #### C OVID19 #### [facility] [address] [place] [address], [id number] SYPHILIS WITH CONFIRMATIONon 10-23-2022 SYPHILIS TOTAL (IGG/IGM) Non-Reactive Normal Non-Reactive [facility] Comment on above: Order Comment: Not D etected results are indicative of the absence of SARS-CoV-2 in the specimen submitted for testing. False negative results are possible based on the timing and quality of specimen submitted for testing. This test is intended for use only under Emergency Use Authorization (EUA). This test was developed, and its performance characteristics determined by [facility] which is certified under CLIA as qualified to perform high complexity clinical laboratory testing. Performed By: #### C OVID19 #### [facility] [address] [place], [place], TPPA Normal [facility] Comment on above: Order Comment: Not D etected results are indicative of the absence of SARS-CoV-2 in the specimen submitted for testing. False negative results are possible based on the timing and quality of specimen submitted for testing. This test is intended for use only under Emergency Use Authorization (EUA). This test was developed, and its performance characteristics determined by [facility] which is certified under CLIA as qualified to perform high complexity clinical laboratory testing. Performed By: #### C OVID19 #### [facility] [address] [place], [place], TRIIODOTHYRONINE (T3)on 09-29 T3 135.6 ng/dL Normal 87.0-179.0 [facility] Comment on above: Performed By: #### T SH HS, T3, CRP #### [facility] [address] [place], [place], TSHon 10-23-2022 TSH 3.964 uIU/mL Normal 0.450-5.330 [facility] Comment on above: Result Comment: Refe ludin range for women as applicable: First Trimester: 0. 050 to 3.700 uIU/mL Second Trimester: 0. 310 to 4.350 uIU/mL Third Trimester: 0. 410 to 5.180 uIU/mL Performed By: #### T SH HS, T3, CRP #### [facility] [address] [place], [place], Telephone Encounteron 2022 [employer] Authentication Interface Message Text Spoke to Domonique, pt sister Explained rationale for biopsy and transfer All questions answered Normal The [facility] [employer] Authentication Interface Message Text PT's sister, Domonique calling in stating Dr. Aggarwal called and LVM for her regarding her sister that is inpatient. Please call Domonique back to discuss her sister Dx's [phone] ( PT will be home until 2:30 pm) Normal The [facility] VANCOMYCIN TROUGHon 10-23-19 23 VANC TR 17.4 ug/mL Normal 10.0-20.0 [facility] Comment on above: Performed By: #### V ANC TR #### [facility] [address] [place], [place], CBC WITH DIFFERENTIALon 09-29 Basophils (Bld) [#/Vol] 0.12 10*3/uL Normal 0.00-0.20 [facility] Comment on above: Performed By: #### C BCDSAT ####[facility] [id number] [place], [place], Basophils/100 WBC (Bld) 0.7 % Normal <=1.9 [facility] Comment on above: Performed By: #### C BCDSAT ####[facility] [id number] [place], [place], Eosinophils (Bld) [#/Vol] 0.54 10*3/uL Normal 0.00-0.70 [facility] Comment on above: Performed By: #### C BCDSAT ####[facility] [id number] [place], [place], Eosinophils/100 WBC (Bld) 3.4 % Normal 0.1-4.0 [facility] Comment on above: Performed By: #### C BCDSAT ####[facility] [id number] [place], [place], Erythrocyte distribution width (RBC) [Ratio] 14.1 % Normal 11.5-14.5 [facility] Comment on above: Performed By: #### C BCDSAT ####[facility] [id number] [place], [place], Hematocrit (Bld) [Volume fraction] 35.3 % Low 36.0-46.0 [facility] Comment on above: Performed By: #### C BCDSAT ####[facility] [id number] [place], [place], Hemoglobin (Bld) [Mass/Vol] 11.4 g/dL Low 12.0-15.0 The [facility] Comment on above: Performed By: #### C BCDSAT ####[facility] [id number] [place], [place], Lymphocytes (Bld) [#/Vol] 2.11 10*3/uL Normal 1.00-4.80 [facility] Comment on above: Performed By: #### C BCDSAT ####[facility] [id number] [place], [place], Lymphocytes/100 WBC (Bld) 13.2 % Low 24.0-44.0 [facility] Comment on above: Performed By: #### C BCDSAT ####[facility] [id number] [place], [place], MCH (RBC) [Entitic mass] 27.4 pg Normal 26.0-34.0 [facility] Comment on above: Performed By: #### C HALIMADSAT ####[facility] [id number] [place] [address], MCHC (RBC) [Mass/Vol] 32.3 g/dL Normal 32.0-35.9 [facility] Comment on above: Performed By: #### C BCDSAT ####[facility] [id number] [place] [address], MCV (RBC) [Entitic vol] 85 fL Normal 80-100 [facility] Comment on above: Performed By: #### C BCDSAT ####[facility] [id number] [place], MONOCYTE DISTRIBUTION WIDTH Normal [facility] Comment on above: Performed By: #### C BCDSAT ####[facility] [id number] [place], [place], Monocytes (Bld) [#/Vol] 1.11 10*3/uL High 0.20-1.00 [facility] Comment on above: Performed By: #### C BCDSAT ####[facility] [id number] [place], Monocytes/100 WBC (Bld) 7.0 % Normal 2.0-11.0 [facility] Comment on above: Performed By: #### C BCDSAT ####[facility] [id number] [place], Neutrophils (Bld) [#/Vol] 12.11 10*3/uL High 1.50-8.00 [facility] Comment on above: Performed By: #### C HALIMADSAT ####[facility] [id number] [place], Neutrophils/100 WBC (Bld) 75.7 % Normal 31.0-76.0 [facility] Comment on above: Performed By: #### C HALIMADSAT ####[facility] [id number] [place], Platelet mean volume (Bld) [Entitic vol] 8.0 fL Normal 7.5-11.2 [facility] Comment on above: Performed By: #### Nichole ROAAT ####[facility] [id number] [place], Platelets (Bld) [#/Vol] 332 10*3/uL Normal 150-400 [facility] Comment on above: Performed By: #### Nichole ROAAT ####[facility] [id number] [place], RBC (Bld) [#/Vol] 4.16 10*6/uL Normal 4.00-5.20 [facility] Comment on above: Performed By: #### Nichole ROAAT ####[facility] [id number] [place], WBC (Bld) [#/Vol] 16.0 10*3/uL High 4.5-11.5 [facility] Comment on above: Performed By: #### Nichole ROAAT ####[facility] [id number] [place], [place], Care Plan Noteon 10-22-2022 [employer] Authentication Interface Message Text Ophthal called me and recommended transfer to [facility]/ for Oculoplastic Orbital surgery for biopsy Patient requested me to talk with her sister, Domonique who is a HCW. I discussed the above recommendations and she preferred [facility] transfer. Will initiate the process tomorrow. Normal [facility] [employer] Authentication Interface Message Text Problem: Routine Care: [...] will be met Outcome: Progressing Normal [facility] Progress Noteson 10-22-2022 [employer] Authentication Interface Message Text -------- Attestation signed [...] she remains afebrile. Ophthalmology recommended transfer to [facility] or for oculoplasty due to [...] (10/21) -Ophthalmology on board. Recommended transfer to [facility] or for oculoplasty and biopsy to determine etiology due to concern for infiltrative process. ID will continue to follow Findings and recommendations discussed with Dr. Oliveira. Car Dorado MD ID fellow, PGY-4 Pager: [phone] Normal The [facility] [employer] Authentication Interface Message Text Teaching Physician Note: [...] to orbital surgeon for biopsy: O-P at [facility] or Uri Peña MD Normal The [employer] Authentication Interface Message Text Daily follow up [...] that did not have beds, sent to [facility] for possible admission for orbital cellulitis [...] from ENT - Recommend transfer to or [facility] for oculoplastics care. The patient [...] discussed with Dr. Kidd and Normal [facility] Care Plan Noteon 10-21-2022 [employer] Authentication Interface Message Text Problem: Routine Care: [...] will be met Outcome: Progressing Normal [facility] [employer] Authentication Interface Message Text Problem: Routine Care: [...] will be met Outcome: Progressing Normal [facility] Consultson 10-21-2022 [employer] Authentication Interface Message Text -------- Attestation signed [...] pertinent surgical history. Allergies: Allergies Allergen Reactions [place] [Acetaminophen-Hydrocodo ne] Penicillins Medications: Current Facility-Administered Medications [...] At Bedtime 5 mg at 10/20/22 220 [id number] (CREON (more content not included)... Normal [facility] MR HEAD/ORBIT W/Oon 10-21-19 MR HEAD/ORBIT [...] and diffuse abnormal infiltration throughout the right client director space with asymmetric enlargement of the right [...] pterygopalatine fossa and diffusely throughout the right client director space with asymmetry of the muscles of [...] with read back verification. (-CF-) Normal [facility] MR ORBIT W/+W/Oon 10-21-2022 MR ORBIT [...] infiltration of the right muscles of the client director (pterygoids and the temporalis), retroantral fat pad [...] sinus are normal. MACRO: None Normal [facility] Progress Noteson 10-21-2022 [employer] Authentication Interface Message Text [address] Stein requesting robitussin. Normal The [employer] Interface Message Text Pharmacokinetic Dosing Service - VANCOMYCIN Name: Gracie Banuelos Age:[age] year old Gender: female Ht: 5' 3 Wt: no weight Indication: Central Nervous System (MANAGER AUTO) and orbital cellulitis Desired Ranges: 15-20 Day of therapy: 2 Assessment and Recommendations: 10/21/22 HROBINSON1- Day 2: Central Nervous System (MANAGER AUTO) and orbital cellulitis ; Renal function: stable; No change recommended. Next level Due:prior to 4th dose. Level not ordered Current Dose Active Vancomycin Orders (From admission, onward) Start Stop 10/20/221654 vancomycin (VANCOCIN) 1,250 mg/250 mL iv soln (ROOM TEMP PREMIX) 20 mg/kg, Intravenous, EVERY 12 HOURS Question: Suspected Source/Reason for Therapy Answer: Central Nervous System (MANAGER AUTO) -- 10/20/221652 vancomycin dosing pharmacy consult Other, As Directed Question: Suspected Source/Reason for Therapy Answer: Central Nervous System (MANAGER AUTO) -- Lab Values: Creatinine Date Value Ref Range Status 10/20/2022 0.56 0.50 - 1.10 mg/dL Final Lab Results Component Value Date/Time VANCTR 16.6 10/21/2022 03:44 PM No results found for: VANCR Serum creatinine: 0.56 mg/dL 10/20/22 0910 Estimated creatinine clearance: 89.48 mL/min Culture(s): PENDING. [facility] - Department of Pharmacy Services Normal The Mine Interface Message Text Follow up visit 1. [...] MD and Jaime Aggarwal MD Normal [facility] [employer] Authentication Interface Message Text Pt states that [...] By: #### V ANC TR ####S PATHOLOGY [id number] [place], [place], BASIC METABOLIC PANELon 09-29 Anion gap [Moles/Vol] 11 mmol/L Normal 10-20 [facility] Comment on above: Performed By: #### C H8 #### [facility] [address] [place], [place], Calcium [Mass/Vol] 9.4 mg/dL Normal 8.4-10.4 [facility] Comment on above: Performed By: #### C H8 #### [facility] [address] [place], [place], Chloride [Moles/Vol] 102 mmol/L Normal 97-111 [facility] Comment on above: Performed By: #### C H8 #### S [facility] [address] [place], [place], CO2 [Moles/Vol] 28 mmol/L Normal 21-30 [facility] Comment on above: Performed By: #### C H8 #### S [facility] [address] [place], [place], Creatinine [Mass/Vol] 0.56 mg/dL Normal 0.50-1.10 [facility] Comment on above: Performed By: #### C H8 #### S [facility]ORAT[facility] [address] [place], [place], ESTIMATED GFR (CKD-EPI) 105 mL/min/1.73sqm Normal >=60 [facility] Comment on above: Result Comment: 2020 [...] Inclusion of Race in Diagnosing Kidney Disease. [place] Journal of Kidney Diseases 2021;79(2):268-88.e1. 2. N Engl J Med 2020 Vol. 385 Issue 19 Pages [id number] Performed By: #### C H8 #### S [facility] LABORATORY [address] [place] [address], Glucose [Mass/Vol] 96 mg/dL Normal 68-110 [facility] Comment on above: Performed By: #### C H8 #### S [facility]ORATORY [address] [place] [address], Potassium [Moles/Vol] 4.3 mmol/L Normal 3.3-5.3 [facility] Comment on above: Performed By: #### C H8 #### S [facility]ATORY [address] [place] [address], Sodium [Moles/Vol] 137 mmol/L Normal 135-148 [facility] Comment on above: Performed By: #### C H8 #### S [facility] [address] [place] [address], Urea nitrogen [Mass/Vol] 10 mg/dL Normal 8-22 [facility] Comment on above: Performed By: #### C H8 #### S [facility] [address] [place] [address], CBC WITH DIFFERENTIALon 09-29 Basophils (Bld) [#/Vol] 0.19 10*3/uL Normal 0.00-0.20 [facility] Comment on above: Performed By: #### C OVID19 #### S [facility]AT[facility] [address] [place] [address], Basophils/100 WBC (Bld) 1.3 % Normal <=1.9 [facility] Comment on above: Performed By: #### C OVID19 #### S [facility] LAB[facility]ATORY [address] [place] [address], Eosinophils (Bld) [#/Vol] 0.52 10*3/uL Normal 0.00-0.70 [facility] Comment on above: Performed By: #### C OVID19 #### [facility] [address] [place] [address], Eosinophils/100 WBC (Bld) 3.5 % Normal 0.1-4.0 [facility] Comment on above: Performed By: #### C OVID19 #### [facility] [address] [place] [address], Erythrocyte distribution width (RBC) [Ratio] 14.0 % Normal 11.5-14.5 [facility] Comment on above: Performed By: #### C OVID19 #### [facility] [address] [place] [address], Hematocrit (Bld) [Volume fraction] 37.4 % Normal 36.0-46.0 [facility] Comment on above: Performed By: #### C OVID19 #### [facility] [address] [place] [address], Hemoglobin (Bld) [Mass/Vol] 12.4 g/dL Normal 12.0-15.0 [facility] Comment on above: Performed By: #### C OVID19 #### [facility] [address] [place] [address], Lymphocytes (Bld) [#/Vol] 2.87 10*3/uL Normal 1.00-4.80 [facility] Comment on above: Performed By: #### C OVID19 #### [facility] [address] [place] [address], Lymphocytes/100 WBC (Bld) 19.5 % Low 24.0-44.0 [facility] Comment on above: Performed By: #### C OVID19 #### [facility] [address] [place] [address], MCH (RBC) [Entitic mass] 28.1 pg Normal 26.0-34.0 [facility] Comment on above: Performed By: #### C OVID19 #### [facility] [address] [place] [address], MCHC (RBC) [Mass/Vol] 33.2 g/dL Normal 32.0-35.9 [facility] Comment on above: Performed By: #### C OVID19 #### S [facility] LABORATORY [address] [place] [address], MCV (RBC) [Entitic vol] 85 fL Normal 80-100 [facility] Comment on above: Performed By: #### C OVID19 #### S [facility]OLOG[facility] LABORATORY [address] [place], [place], MONOCYTE DISTRIBUTION WIDTH 19 Normal <=20 [facility] Comment on above: Performed By: #### C OVID19 #### [facility] [address] [place], [place], Monocytes (Bld) [#/Vol] 1.30 10*3/uL High 0.20-1.00 [facility] Comment on above: Performed By: #### C OVID19 #### [facility] [address] [place], [place], Monocytes/100 WBC (Bld) 8.8 % Normal 2.0-11.0 [facility] Comment on above: Performed By: #### C OVID19 #### [facility] [address] [place], [place], Neutrophils (Bld) [#/Vol] 9.87 10*3/uL High 1.50-8.00 [facility] Comment on above: Performed By: #### C OVID19 #### [facility] [address] [place], [place], Neutrophils/100 WBC (Bld) 66.9 % Normal 31.0-76.0 [facility] Comment on above: Performed By: #### C OVID19 #### [facility] [address] [place], [place], Platelet mean volume (Bld) [Entitic vol] 8.1 fL Normal 7.5-11.2 [facility] Comment on above: Performed By: #### C OVID19 #### S [facility] [address] [place], [place], Platelets (Bld) [#/Vol] 359 10*3/uL Normal 150-400 [facility] Comment on above: Performed By: #### C OVID19 #### S [facility] [address] [place], [place], RBC (Bld) [#/Vol] 4.41 10*6/uL Normal 4.00-5.20 [facility] Comment on above: Performed By: #### C OVID19 #### S [facility] [address] [place], [place], WBC (Bld) [#/Vol] 14.8 10*3/uL High 4.5-11.5 [facility] Comment on above: Performed By: #### C OVID19 #### [facility] [address] [place], [place], CT CHEST W/O CONTRASTon 09-29 CT CHEST W/O CONTRAST EXAMINATION: CT CH EST W/O CONTRAST 10/20/2022 06:05 PM CLINICAL HISTORY: Hilar lymphadenopathy; Interstitial Lung disease; ?sarcoidosis ASSOCIATED DIAGNOSIS: Hilar lymphadenopathy Interstitial lung disease ?sarcoidosis ORDERING PROVIDER: [facility]: COMPARISON: None TECHNIQUE: Contiguous [...] risk, a follow-up CHEST W/O CONTRAST (code: [id number]) is optional at 12 months. 4. Severe coronary artery calcifications. Mitral annular calcification. MACRO: None Normal [facility] Consultson 10-20-2022 [employer] M[employer] Authentication Interface Message Text -------- Attestation signed [...] was started on clindamycin yesterday in the [place] ED with improvement in her symptoms. She [...] sinus. Other Studies/Information: I personally reviewed the reservoir engineering consultant notes or primary team notes as [...] Head AND Neck Surgery ENT Team Pager: [phone] Normal The [facility] ED Provider Noteson 10-20-19 23 [employer] Authentication Interface Message Text ENT and med [...] evaluated, recommend admission for IV abx, further [id number] as delineated in their note. No indication for biopsy at this time. Will repage team 7 med and update. Janeth Kamara MD Normal [facility] [employer] Authentication Interface Message Text EMERGENCY DEPARTMENT - VISIT NOTE ------ HISTORY OF PRESENT ILLNESS -- Chief Complaint Patient presents with Eye pain Transfer from osh for R eye cellulitis Eyeglass Frame Truer: not needed - patient preferred language is Finnish. The history is provided by the Patient. [...] beds available at OSH and transferred to [facility] for admission. Currently on clindamycin. Morphine [...] incorporated. Review of External (Non- ED) Notes: [facility] ED notes reviewed and show Intake notes [...] days prior by Dr. Acosta at [facility], started on azithromycin OSH imaging reviewed: CT [...] Independent Test Interpretation: Lab studies personally interpreted Investigator Vice - ophthalmology - send to clinic, medical [...] septal/preseptal cellulitis w/out abscess, currently on clindamycin. 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 Pain treated with morphine/zofran. (more content not included)... Normal [facility] Influenza virus A and B and SARS-CoV-2 (COVID-19) Ag panel - Upper respiratory specimOrdered By: Dr. Dykes on 10-20-2022 SARS-CoV-2 (COVID-19) RNA KANDY+probe Ql (Resp) [facility] Progress Noteson 10-20-2022 [employer] Authentication Interface Message Text Pharmacokinetic Dosing Service - VANCOMYCIN Initial Dosing Note Name: Gracie Banuelos Age:[age] year old Gender: female Ht: Data Unavailable Wt: no weight Indication: Central Nervous System (MANAGER AUTO) Desired Ranges: 15-20 Day of therapy: 1 Assessment and Recommendations: 10/20/22 [id number] - Day 1: Central Nervous System (MANAGER AUTO); Renal function: stable; ; Maintenance dose: 20 [...] (Unknown ideal weight.) Culture(s): PENDING [facility] - Department of Pharmacy Services Normal [facility] [employer] Authentication Interface Message Text New consult from [...] PGY-[address] Guerin Normal [facility] Telephone Encounteron 2022 [employer] Authentication Interface Message Text I was called by [facility] regarding a transfer from [place] ED. That facility is requesting transfer because [...] 13, ESR/CRP elevated. Discussed with provider at [place] ED, advised they should discuss case with ophthalmology as patient may benefit from ED to ED transfer rather than direct admission to medicine for earlier ophthalmology evaluation. Patient is not accepted to medicine at this time, 5:18 AM 10/20/22. Jeffy Garner MD Normal [facility] Absolute lymphocyte countOrd ered By: Dr. Dykes on 10-19-2022 Lymphocytes Auto (Unsp spec) [#/Vol] 3.28 10*3/uL 0.83-4.51 [facility] Basophil percentageOrdered B y: Dr. Dykes on 10-19-2022 Basophils/100 WBC (Bld) 0.8 % 0-1 [facility] Chloride [Moles/Vol] 107 mmol/L 98-107 [facility] Eosinophils/100 WBC (Bld) 4.4 % 0-5 [facility] Glucose [Mass/Vol] 97 mg/dL 74-106 [facility] Neutrophils (Bld) [#/Vol] 8.8 10*3/uL 2.0-7.7 [facility] Neutrophils/100 WBC (Bld) 63.4 % 47-70 [facility] Potassium [Moles/Vol] 3.8 mmol/L 3.5-5.1 [facility] Sodium [Moles/Vol] 137 mmol/L 136-145 [facility] WBC (Bld) [#/Vol] 13.9 10*3/uL 4.4-11.0 [facility] Blood erythrocytes count (nu mber/volume)Ordered By: Dr. Dykes on 10-19-2022 RBC (Bld) [#/Vol] 4.87 10*6/uL 4.2-5.4 [facility] Blood hemoglobin measurement (mass/volume)Ordered By: Dr. Dykes on 10-19-2022 Hemoglobin (Bld) [Mass/Vol] 13.6 g/dL 12.0-15.0 [facility] Blood lymphocytes/100 leukoc ytesOrdered By: Dr. Dykes on 10-19-2022 Lymphocytes/100 WBC (Bld) 23.6 % 19-41 [facility] Blood monocytes/100 leukocyt esOrdered By: Dr. Dykes on 10-19-2022 Monocytes/100 WBC (Bld) 7.1 % 0-10 [facility] Blood platelet mean volumeOr dered By: Dr. Dykes on 10-19-2022 Platelet mean volume (Bld) [Entitic vol] 9.6 fL 6.2-12.0 [facility] Determination of erythrocyte mean corpuscular volume (MCV)Ordered By: Dr. Dykes on 10-19-2022 MCV (RBC) [Entitic vol] 85.0 fL 81-99 [facility] Erythrocyte sedimentation ra teOrdered By: Dr. Dykes on 10-19-2022 ESR (Bld) [Velocity] 75 mm/h 0-30 [facility] Hematocrit Auto (Bld) [Volum e fraction]Ordered By: Dr. Dykes on 10-19-2022 Hematocrit (Bld) [Volume fraction] 41.4 % 37-47 [facility] Influenza virus A and B and SARS-CoV-2 (COVID-19) Ag panel - Upper respiratory specimOrdered By: Dr. Dykes on 10-19-2022 SARS-CoV-2 (COVID-19) RNA KANDY+probe Ql (Resp) [facility] - Chemistry and C hemistry - challengeOrdered By: Dr. Dykes on 10-19-2022 CO2 [Moles/Vol] 26.0 mmol/L 21.0-32.0 [facility] Urea nitrogen/Creatinine [Mass ratio] 11.3 mg/mg 10-20 [facility] - Hematology and Cell countsOrdered By: Dr. Dykes on 10-19-2022 Erythrocyte distribution width (RBC) [Entitic vol] 41.5 fL 35.1-43.9 [facility] Erythrocyte distribution width (RBC) [Ratio] 13.2 % 11.6-14.6 [facility] Immature granulocytes/100 WBC (Bld) 0.700 % 0.0-0.9 [facility] Comment on above: IG% - Immature Granu locytes (promyelocytes, myelocytes and metamyelocytes) > 1% indicates that a LEFT SHIFT is Present. MCH (RBC) [Entitic mass] 27.9 pg 27.0-32.0 [facility] Nucleated RBC/100 WBC (Bld) [Ratio] 0 % 0-5 [facility] MCHC Auto (RBC) [Mass/Vol]Or dered By: Dr. Dykes on 10-19-2022 MCHC (RBC) [Mass/Vol] 32.9 g/dL 32-36 [facility] No Panel InformationOrdered By: Dr. Dykes on 10-19-2022 Estimated Creatinine Clearance Calc 80.82 ml/min [facility] Estimated GFR (MDRD) Amer 127 mL/min >60 [facility] Comment on above: GFR Calc Estimated GFR (MDRD) Non-Af Amer 105 mL/min >60 [facility] Comment on above: Non- GFR Calc Platelets bldOrdered By: Dr. Dykes on 10-19-2022 Platelets (Bld) [#/Vol] 384 10*3/uL 150-450 [facility] Serum or plasma C reactive p rotein measurement (mass/volume)Ordered By: Dr. Dykes on 10-19-2022 CRP [Mass/Vol] 42.60 mg/L 0.0-3.0 [facility] Comment on above: C-Reactive Protein ( CRP) provides useful information for thediagnosis, therapy and monitoring of inflammatory processesand associated diseases. For the evaluation of Relative Riskfor Cardiovascular Disease, a High Sensitivity CRP (HSCRP)should be ordered. Serum or plasma calcium esthela urement (mass/volume)Ordered By: Dr. Dykes on 10-19-2022 Calcium [Mass/Vol] 9.5 mg/dL 8.5-10.1 [facility] Serum or plasma creatinine m easurement (mass/volume)Ordered By: Dr. Dykes on 10-19-2022 Creatinine [Mass/Vol] 0.62 mg/dL 0.55-1.02 [facility] Comment on above: The validity of the calculated GFR & GFRAA in patients over 70 years has not been determined. Clinical correlation is essential. Serum or plasma urea nitroge n measurement (mass/volume)Ordered By: Dr. Dykes on 10-19-2022 Urea nitrogen [Mass/Vol] 7 mg/dL 7-18 [facility] Thin prep Papanicolaou smear with manual screeningOrdered By: Dr. Dykes on 10-19-2022 Thin prep Papanicolaou smear with manual screening 4 5-15 [facility] - Microbiology an d Antimicrobial susceptibilityOrdered By: Dr. Handy on 08-28-2022 Bacteria identified Cx Nom (Bld) No growth in 5 days. [facility] Culture, urineOrdered By: Dr Max Handy on 08-24-2022 Bacteria identified Cx Nom (U) Positive [facility] Absolute lymphocyte countOrd ered By: Dr. Handy on 08-22-2022 Lymphocytes Auto (Unsp spec) [#/Vol] 2.04 10*3/uL 0.83-4.51 [facility] Basophil percentageOrdered B y: Dr. Handy on 08-22-2022 Basophil percentage 0 SEEN /hpf 0-5 [facility] Basophils/100 WBC (Bld) 0.3 % 0-1 [facility] Bilirubin [Mass/Vol] 0.20 mg/dL 0.20-1.00 [facility] Comment on above: For patients on eltr ombopag therapy, use of Dimension [place] TBIL is not recommended. Chloride [Moles/Vol] 95 mmol/L 98-107 [facility] Eosinophils/100 WBC (Bld) 0.6 % 0-5 [facility] Glucose [Mass/Vol] 115 mg/dL 74-106 [facility] Comment on above: Fasting Glucose resu lt from 100 to 125 mg/dL suggests IMPAIRED HOMEOSTASIS per A.D.A. criteria. Lactate [Moles/Vol] 0.7 mmol/L 0.4-2.0 [facility] [facility] Neutrophils (Bld) [#/Vol] 6.4 10*3/uL 2.0-7.7 [facility] Neutrophils/100 WBC (Bld) 66.3 % 47-70 [facility] Potassium [Moles/Vol] 3.9 mmol/L 3.5-5.1 [facility] Protein [Mass/Vol] 7.5 g/dL 6.4-8.2 [facility] Sodium [Moles/Vol] 131 mmol/L 136-145 [facility] WBC (Bld) [#/Vol] 9.6 10*3/uL 4.4-11.0 [facility] Bilirubin Test strip Ql (U)O rdered By: Dr. Handy on 08-22-2022 Bilirubin Ql (U) Negative Negative [facility] Blood erythrocytes count (nu mber/volume)Ordered By: Dr. Handy on 08-22-2022 RBC (Bld) [#/Vol] 5.09 10*6/uL 4.2-5.4 [facility] Blood hemoglobin measurement (mass/volume)Ordered By: Dr. Handy on 08-22-2022 Hemoglobin (Bld) [Mass/Vol] 15.2 g/dL 12.0-15.0 [facility] Blood lymphocytes/100 leukoc ytesOrdered By: Dr. Handy on 08-22-2022 Lymphocytes/100 WBC (Bld) 21.2 % 19-41 [facility] Blood monocytes/100 leukocyt esOrdered By: Dr. Handy on 08-22-2022 Monocytes/100 WBC (Bld) 11.3 % 0-10 [facility] Blood platelet mean volumeOr dered By: Dr. Handy on 08-22-2022 Platelet mean volume (Bld) [Entitic vol] 10.8 fL 6.2-12.0 [facility] Determination of erythrocyte mean corpuscular volume (MCV)Ordered By: Dr. Handy on 08-22-2022 MCV (RBC) [Entitic vol] 86.1 fL 81-99 [facility] Hematocrit Auto (Bld) [Volum e fraction]Ordered By: Dr. Handy on 08-22-2022 Hematocrit (Bld) [Volume fraction] 43.8 % 37-47 [facility] INR in Blood by Coagulation assayOrdered By: Dr. Handy on 08-22-2022 INR Coag (Bld) [Relative time] 0.9 {INR} [facility] Influenza virus A and B and SARS-CoV-2 (COVID-19) Ag panel - Upper respiratory specimOrdered By: Dr. Handy on 08-22-2022 SARS-CoV-2 (COVID-19) RNA KANDY+probe Ql (Resp) [facility] Ketones Test strip Ql (U)Ord ered By: Dr. Handy on 08-22-2022 Ketones Ql (U) Negative Negative [facility] Laboratory - Chemistry and C hemistry - challengeOrdered By: Dr. Handy on 08-22-2022 ALP [Catalytic activity/Vol] 108 U/L 45-117 [facility] ALT [Catalytic activity/Vol] 21 U/L 13-56 [facility] CO2 [Moles/Vol] 30.0 mmol/L 21.0-32.0 [facility] Globulin (S) [Mass/Vol] 4.1 g/dL 2.2-4.2 [facility] Urea nitrogen/Creatinine [Mass ratio] 15.0 mg/mg 10-20 [facility] Laboratory - CoagulationOrde red By: Dr. Handy on 08-22-2022 aPTT Coag (Bld) [Time] 28.9 s 24.1-36.2 [facility] PT Coag (PPP) [Time] 12.3 s 11.7-14.9 [facility] Laboratory - Hematology and Cell countsOrdered By: Dr. Handy on 08-22-2022 Erythrocyte distribution width (RBC) [Entitic vol] 42.4 fL 35.1-43.9 [facility] Erythrocyte distribution width (RBC) [Ratio] 13.4 % 11.6-14.6 [facility] Immature granulocytes/100 WBC (Bld) 0.300 % 0.0-0.9 [facility] Comment on above: IG% - Immature Granu locytes (promyelocytes, myelocytes and metamyelocytes) > 1% indicates that a LEFT SHIFT is Present. MCH (RBC) [Entitic mass] 29.9 pg 27.0-32.0 [facility] Nucleated RBC/100 WBC (Bld) [Ratio] 0 % 0-5 [facility] MCHC Auto (RBC) [Mass/Vol]Or dered By: Dr. Handy on 08-22-2022 MCHC (RBC) [Mass/Vol] 34.7 g/dL 32-36 [facility] Mucus LM Ql (Urine sed)Order ed By: Dr. Handy on 08-22-2022 Mucus Ql (Urine sed) 0 SEEN /hpf [facility] Nitrite Test strip Ql (U)Ord ered By: Dr. Handy on 08-22-2022 Nitrite Ql (U) Negative Negative [facility] No Panel InformationOrdered By: Dr. Handy on 08-22-2022 Estimated Creatinine Clearance Calc 83.51 ml/min [facility] Estimated GFR (MDRD) Amer 132 mL/min >60 [facility] Comment on above: GFR Calc Estimated GFR (MDRD) Non-Af Amer 109 mL/min >60 [facility] Comment on above: Non- GFR Calc Troponin I High Sensitivity 25 pg/mL 3.0-54.0 [facility] Comment on above: Please Note: [place] t Units and Gender Specific Reference Ranges. For more information see Policy Stat Procedure [place] High Sensitivity Troponin (TNIH) and attachments. Platelets bldOrdered By: Dr. Handy on 08-22-2022 Platelets (Bld) [#/Vol] 226 10*3/uL 150-450 [facility] Protein Test strip Ql (U)Ord ered By: Dr. Handy on 08-22-2022 Protein Ql (U) Negative Negative [facility] RSV Ag EIAOrdered By: Dr. Kam lou on 08-22-2022 RSV Ag Immune stain Ql (Tiss) [facility] Serum or plasma albumin esthela urement (mass/volume)Ordered By: Dr. Handy on 08-22-2022 Albumin [Mass/Vol] 3.4 g/dL 3.2-5.0 [facility] Serum or plasma albumin/glob ulin mass ratioOrdered By: Dr. Handy on 08-22-2022 Albumin/Globulin [Mass ratio] 0.8 {ratio} 0.9-2.4 [facility] Serum or plasma calcium esthela urement (mass/volume)Ordered By: Dr. Handy on 08-22-2022 Calcium [Mass/Vol] 8.7 mg/dL 8.5-10.1 [facility] Serum or plasma creatinine m easurement (mass/volume)Ordered By: Dr. Handy on 08-22-2022 Creatinine [Mass/Vol] 0.60 mg/dL 0.55-1.02 [facility] Comment on above: The validity of the calculated GFR & GFRAA in patients over 70 years has not been determined. Clinical correlation is essential. Serum or plasma urea nitroge n measurement (mass/volume)Ordered By: Dr. Handy on 08-22-2022 Urea nitrogen [Mass/Vol] 9 mg/dL 7-18 [facility] Squamous epithelial cells de tection in urine sediment by light microscopyOrdered By: Dr. Handy on 08-22-2022 Epithelial cells.squamous LM Ql (Urine sed) 0-5 SEEN /hpf 5-10 [facility] Thin prep Papanicolaou smear with manual screeningOrdered By: Dr. Handy on 08-22-2022 Thin prep Papanicolaou smear with manual screening 17 U/L 15-37 [facility] Thin prep Papanicolaou smear with manual screening 6 5-15 [facility] Urine blood detectionOrdered By: Dr. Handy on 08-22-2022 RBC Ql (U) Negative Negative [facility] RBC Ql (U) 0 SEEN /hpf 0-5 [facility] Urine clarityOrdered By: Dr. Handy on 08-22-2022 Clarity (U) Sl. Cloudy Clear [facility] Urine color determinationOrd ered By: Dr. Handy on 08-22-2022 Color (U) Yellow Yellow [facility] Urine glucose detectionOrder ed By: Dr. Handy on 08-22-2022 Glucose Ql (U) Normal mg/dl Normal [facility] Urine leukocyte esterase det ection by dipstickOrdered By: Dr. Handy on 08-22-2022 Leukocyte esterase Test strip Ql (U) Negative Negative [facility] Urine pHOrdered By: Dr. Rashad lay on 08-22-2022 pH (U) 6.5 [pH] 5.0 - 8.0 [facility] Urine sediment bacteria coun t by microscopy (number/high power field)Ordered By: Dr. Handy on 08-22-2022 Bacteria LM.HPF (Urine sed) [#/Area] RARE /hpf None Seen [facility] Urine specific gravity measu rementOrdered By: Dr. Handy on 08-22-2022 Specific gravity (U) [Rel density] 1.005 1.002-1.030 [facility] Urobilinogen Auto test strip Ql (U)Ordered By: Dr. Handy on 08-22-2022 Urobilinogen Ql (U) Normal mg/dl Normal [facility] Absolute lymphocyte counton 03-03-2022 Lymphocytes Auto (Unsp spec) [#/Vol] 2.54 10*3/uL 0.83-4.51 [facility] Work Phone: Basophil percentageon 2021 Basophils/100 WBC (Bld) 0.8 % 0-1 [facility] Work Phone: Chloride [Moles/Vol] 107 mmol/L 98-107 [facility] Work Phone: Eosinophils/100 WBC (Bld) 2.4 % 0-5 [facility] Work Phone: Glucose [Mass/Vol] 149 mg/dL 74-106 [facility] Work Phone: Comment on above: Fasting Glucose resu lt greater than or equal to 126 mg/dL suggests DIABETES MELLITUS per A.D.A. criteria. Neutrophils (Bld) [#/Vol] 7.8 10*3/uL 2.0-7.7 [facility] Work Phone: Neutrophils/100 WBC (Bld) 66.0 % 47-70 [facility] Work Phone: Potassium [Moles/Vol] 3.6 mmol/L 3.5-5.1 [facility] Work Phone: Sodium [Moles/Vol] 139 mmol/L 136-145 [facility] Work Phone: WBC (Bld) [#/Vol] 11.8 10*3/uL 4.4-11.0 [facility] Work Phone: Blood erythrocytes count (nu mber/volume)on 03-03-2022 RBC (Bld) [#/Vol] 4.79 10*6/uL 4.2-5.4 [facility] Work Phone: Blood hemoglobin measurement (mass/volume)on 03-03-2022 Hemoglobin (Bld) [Mass/Vol] 13.4 g/dL 12.0-15.0 [facility] Work Phone: Blood lymphocytes/100 leukoc yteson 03-03-2022 Lymphocytes/100 WBC (Bld) 21.6 % 19-41 [facility] Work Phone: Blood monocytes/100 leukocyt eson 03-03-2022 Monocytes/100 WBC (Bld) 8.4 % 0-10 [facility] Work Phone: Blood platelet mean volumeon 03-03-2022 Platelet mean volume (Bld) [Entitic vol] 10.4 fL 6.2-12.0 [facility] Work Phone: Determination of erythrocyte mean corpuscular volume (MCV)on 03-03-2022 MCV (RBC) [Entitic vol] 89.4 fL 81-99 [facility] Work Phone: Hematocrit Auto (Bld) [Volum e fraction]on 03-03-2022 Hematocrit (Bld) [Volume fraction] 42.8 % 37-47 [facility] Work Phone: Laboratory - Chemistry and C hemistry - challengeon 03-03-2022 CO2 [Moles/Vol] 27.0 mmol/L 21.0-32.0 [facility] Work Phone: [phone] Urea nitrogen/Creatinine [Mass ratio] 6.7 mg/mg 10-20 [facility] Work Phone: [phone] Laboratory - Hematology and Cell countson 03-03-2022 Erythrocyte distribution width (RBC) [Entitic vol] 45.1 fL 35.1-43.9 [facility] Work Phone: [phone] Erythrocyte distribution width (RBC) [Ratio] 13.8 % 11.6-14.6 [facility] Work Phone: [phone] Immature granulocytes/100 WBC (Bld) 0.800 % 0.0-0.9 [facility] Work Phone: [phone] Comment on above: IG% - Immature Granu locytes (promyelocytes, myelocytes and metamyelocytes) > 1% indicates that a LEFT SHIFT is Present. MCH (RBC) [Entitic mass] 28.0 pg 27.0-32.0 [facility] Work Phone: [phone] Nucleated RBC/100 WBC (Bld) [Ratio] 0 % 0-5 [facility] Work Phone: [phone] MCHC Auto (RBC) [Mass/Vol]on 03-03-2022 MCHC (RBC) [Mass/Vol] 31.3 g/dL 32-36 [facility] Work Phone: [phone] No Panel Informationon 03-03 Estimated Creatinine Clearance Calc 84.54 ml/min [facility] Work Phone: [phone] Estimated GFR (MDRD) Amer 131 mL/min >60 [facility] Work Phone: [phone] Comment on above: GFR Calc Estimated GFR (MDRD) Non-Af Amer 109 mL/min >60 [facility] Work Phone: [phone] Comment on above: Non- GFR Calc SARS-CoV-2 & FLU Antigen (Rapid) [facility] Work Phone: [phone] Troponin I High Sensitivity 14 pg/mL 3.0-54.0 [facility] Work Phone: Comment on above: Please Note: [place] t Units and Gender Specific Reference Ranges. For more information see Policy Stat Procedure [place] High Sensitivity Troponin (TNIH) and attachments. Platelets bldon 03-03-2022 Platelets (Bld) [#/Vol] 251 10*3/uL 150-450 [facility] Work Phone: Serum or plasma calcium esthela urement (mass/volume)on 03-03-2022 Calcium [Mass/Vol] 9.0 mg/dL 8.5-10.1 [facility] Work Phone: Serum or plasma creatinine m easurement (mass/volume)on 03-03-2022 Creatinine [Mass/Vol] 0.60 mg/dL 0.55-1.02 [facility] Work Phone: Comment on above: The validity of the calculated GFR & GFRAA in patients over 70 years has not been determined. Clinical correlation is essential. Serum or plasma urea nitroge n measurement (mass/volume)on 03-03-2022 Urea nitrogen [Mass/Vol] 4 mg/dL 7-18 [facility] Work Phone: Thin prep Papanicolaou smear with manual screeningon 03-03-2022 Thin prep Papanicolaou smear with manual screening 5 5-15 [facility] Work Phone: ANES Pily 12-05-2019 ANES POST HNO ID: [id number] Author: Mark Saab Service: Anesthesiology Author Type: [...] 05, 2019 TIME: 1:36 PM PAGER/CONTACT #: [phone] [facility] ANES PREOPon 12-05-2019 ANES PREOP HNO ID: [id number] Author: Mark Saab Service: Anesthesiology Author Type: [...] 2 moderate COPD by GOLD classification ([facility]) 2018 - Tobacco use - Unspecified hemorrhoids [...] File Prior to Encounter Medication Sig - trxfye-ueehdbpp-omadjmo (CREON 24) 24,000-76,000 -120,000 unit cpDR Take [...] December 05, 2019 TIME: 7:47 AM CSN: [id number] Normal [facility] Glucose Meteron 12-05-2019 Glucose [Mass/Vol] 107 mg/dL High 70-99 [facility] Comment on above: Result Comment: SARWAT Sloan OTIFIED Performed By: #### G LMET #### [place] [address] OPERATIVE NOon 12-05-2019 OPERATIVE NO HNO ID: [id number] Author: Claudia Odonnell Service: Gastroenterology Author Type: Physician Type: Operative Report Filed: 12/05/2019 9:08 AM Note Text: OPERATIVE/PROCEDURE REPORT LOG ID: [id number] Surgery/Procedure Date: 12/05/2019 Incision/Procedure Start Time: 8:27 AM Incision Close/Procedure End Time: 8:45 AM Surgeon(s)/Proceduralist (s) and Carver Hand(s): Surgeon(s) and Role: * Claudia Odonnell - [...] December 05, 2019 TIME: 8:46 AM PAGER/CONTACT #:[phone] Normal [facility] PROGRESSon 12-05-2019 PROGRESS HNO ID: [id number] Author: Juan Everett Service: General Surgery Author Type: Nurse Practitioner Type: Progress Notes Filed: 12/05/2019 7:17 AM Note Text: HANDP completed by Dr. Claudia Odonnell on 11/09/2019. Orders for fluid and IV in Epic. Order for BS check in pre op. Last few BMPs- low glucose. Pt denies history of hypoglycemia. [facility] PT EDon 12-05-2019 PT ED HNO ID: [id number] Author: Ani MunroeRn) SARWAT Ortiz Service: Nursing [...] Ani Ortiz RN In Department: [place] ENDO [facility] PT ED HNO ID: [id number] Author: Gabby MunroeRn) SARWAT Walker Service: Nursing [...] EUS Patient Name: Gracie Banuelos [facility] Readiness To Learn Motivation To Learn: [...] performed at [facility] [place] [address] NAME: GRACIE BANUELOS REQUESTING: CLAUDIA ODONNELL FINAL [...] PRINTED: 12/07/2019 Page 1 of 1 Normal [facility] Comment on above: Performed By: #### S URG #### [place] [address] HOSPon 11-10-2019 HOSP Patient:Gracie Banuelos MRN: Height:5' 3(1.6 m) Weight:111 lb (50.349 kg) Outpatient Medications as of 12/05/19: ssmbdd-arxkkpaa-xssvxbp (CREON 24) 24,000-76,000 -120,000 unit cpDR pantoprazole [...] incontinence, stress female [N39.3] HPV test positive [YBC2307] Pulmonary emphysema (HCC) [J43.9] Irritable bowel syndrome [...] basenames: K,HCT Progress Notes (): Juan Everett, SENIOR ERP CONSULTANT.PROPERTY DISPOSAL OFFICER 12/05/2019 7:17 AM Addendum HANDP completed by [...] 2 moderate COPD by GOLD classification ([facility]) 2017 - Tobacco use - Unspecified hemorrhoids [...] File Prior to Encounter Medication Sig - yqrbhe-eypgcwwi-zrkkzrm (CREON 24) 24,000-76,000 -120,000 unit cpDR Take [...] December 05, 2019 TIME: 7:47 AM CSN: [id number] Progress Notes ([facility]): Claudia Odonnell MD 11/09/2019 3:06 PM Signed HPI:Gracie Banuelos is a 54 year old female who presents for Chronic Pancreatitis. She has h/o- alcohol abuse- quit 10 months ago. She has c/o- pain lower abdomen which is chronic for several years and unrelated to food intake. Also has c/o- diarrhea. She has also difficulty to gain weight. She had CT-scan abdomen from [facility] which shows calcifications in pancreas- suggestive of chronic pancreatitis. No h/o- nausea, vomiting, loss of appetite, hematemesis, bleeding IA, unexplained weight loss, diarrhea, tenesmus, nocturnal diarrhea. [...] - COPD (chronic obstructive pulmonary disease) ([facility]) 05/25/2012 - DDD (degenerative disc disease), cervical [...] 2 moderate COPD by GOLD classification ([facility]) 2018 - Tobacco use - Unspecified hemorrhoids [...] 11/09/19 TIME: 2:32 PM Previous Version Normal [facility] Pulmonary Functiono n 06-19-2017 [place] Pulmonary Function Normal [facility] [place] No Panel Information SARS-CoV-2 & FLU Antigen (Rapid) [facility] Work Phone: Vital Signs Date Time Vital Sign Value Performing Clinician Facility 07-10-2025 12:08-0400 Body temperature 97.8 [degF] Dr. Misbah Elkins MD Work Phone: [phone] [place] [address] 07-10-2025 12:08-0400 Diastolic blood pressure 93 mm[Hg] Dr. Misbah Elkins MD Work Phone: 5(568)198-672272 [place] [address] 07-10-2025 12:08-0400 Heart rate 104 /min Dr. Misbah Elkins MD Work Phone: 1(393)[phone] [place] [address] 07-10-2025 12:08-0400 Respiratory rate 20 /min Dr. Misbah Elkins MD Work Phone: [phone] [place] [address] 07-10-2025 12:08-0400 SaO2% (BldA) [Mass fraction] 92 % Dr. Misbah Elkins MD Work Phone: 4(990)120-999572 [place] [address] 07-10-2025 12:08-0400 Systolic blood pressure 167 mm[Hg] Dr. Misbah Elkins MD Work Phone: 0([phone] [place] [address] 07-10-2025 11:43-0400 Inhaled oxygen flow rate 5 L/min Dr. Misbah Elkins MD Work Phone: [phone] [place] [address] 07-10-2025 06:55-0400 Body height 160.[address] Misbah Elkins MD Work Phone: [phone])141-935772 [place] [address] 07-10-2025 06:55-0400 Body mass index (BMI) [Ratio] 24 kg/m2 Dr. Misbah Elkins MD Work Phone: 3(124)[phone] [place] [address] 07-10-2025 06:55-0400 Body weight 61.[address] Misbah Elkins MD Work Phone: 2(155)171-221872 [place] [address] 07-07-2025 01:15-0400 Body temperature 97.9 [degF] Dr. Misbah Elkins MD Work Phone: 0(464)[phone] [place] [address] 07-07-2025 01:15-0400 Diastolic blood pressure 62 mm[Hg] Dr. Misbah Elkins MD Work Phone: 6(585)371-382772 [place] [address] 07-07-2025 01:15-0400 Heart rate 88 /min Dr. Misbah Elkins MD Work Phone: [phone] [place] [address] 07-07-2025 01:15-0400 Respiratory rate 14 /min Dr. Misbah Elkins MD Work Phone: [phone] [place] [address] 07-07-2025 01:15-0400 SaO2% (BldA) [Mass fraction] 95 % Dr. Misbah Elkins MD Work Phone: 4([phone])150-536972 [place] [address] 07-07-2025 01:15-0400 Systolic blood pressure 155 mm[Hg] Dr. Misbah Elkins MD Work Phone: [phone]([phone] [place] [address] 07-06-2025 19:41-0400 Body mass index (BMI) [Ratio] 22.8 kg/m2 Dr. Misbah Elkins MD Work Phone: 1(441)345-516972 [place] [address] 07-06-2025 19:41-0400 Body weight 58.[address] Misbah Elkins MD Work Phone: [phone])[phone] [place] [address] 07-06-2025 12:15-0400 Body temperature 97 [degF] Dr. Misbah Elkins MD Work Phone: 7(686)309-418572 [place] [address] 07-06-2025 12:15-0400 Diastolic blood pressure 75 mm[Hg] Dr. Misbah Elkins MD Work Phone: 5(714)032-748472 [place] [address] 07-06-2025 12:15-0400 Heart rate 86 /min Dr. Misbah Elkins MD Work Phone: 5(030)796-633972 [place] [address] 07-06-2025 12:15-0400 Inhaled oxygen flow rate 5 L/min Dr. Misbah Elkins MD Work Phone: 8(027)[phone] [place] [address] 07-06-2025 12:15-0400 Respiratory rate 19 /min Dr. Misbah Elkins MD Work Phone: [facility] 07-06-2025 12:15-0400 SaO2% (BldA) [Mass fraction] 95 % Dr. Misbah Elkins MD Work Phone: [facility] 07-06-2025 12:15-0400 Systolic blood pressure 176 mm[Hg] Dr. Misbah Elkins MD Work Phone: [facility] 07-06-2025 09:47-0400 Body mass index (BMI) [Ratio] 23.6 kg/m2 Dr. Misbah Elkins MD Work Phone: [facility] 07-06-2025 09:47-0400 Body weight 60.[address] Misbah Elkins MD Work Phone: [facility] 05-31-2025 10:39-0400 Body mass index (BMI) [Ratio] 20.63 kg/m2 Soila Older SENIOR ERP CONSULTANT.PROPERTY DISPOSAL OFFICER Work Phone: [facility] 05-31-2025 10:39-0400 Body weight 56.25 kg Soila Older SENIOR ERP CONSULTANT.PROPERTY DISPOSAL OFFICER Work Phone: [facility] 05-31-2025 10:39-0400 Diastolic blood pressure 80 mm[Hg] Soila Older SENIOR ERP CONSULTANT.PROPERTY DISPOSAL OFFICER Work Phone: [facility] 05-31-2025 10:39-0400 Heart rate 78 /min Soila Older SENIOR ERP CONSULTANT.PROPERTY DISPOSAL OFFICER Work Phone: [facility] 05-31-2025 10:39-0400 Respiratory rate 16 /min Soila Older SENIOR ERP CONSULTANT.PROPERTY DISPOSAL OFFICER Work Phone: [facility] 05-31-2025 10:39-0400 SaO2% (BldA) [Mass fraction] 95 % Soila Older SENIOR ERP CONSULTANT.PROPERTY DISPOSAL OFFICER Work Phone: [facility] 05-31-2025 10:39-0400 Systolic blood pressure 128 mm[Hg] Soila Older SENIOR ERP CONSULTANT.PROPERTY DISPOSAL OFFICER Work Phone: [facility] 05-24-2025 20:55-0400 Body temperature 98 [degF] Dr. Misbah Elkins MD Work Phone: 3(524)320-803172 [place] [address] 05-24-2025 20:55-0400 Diastolic blood pressure 92 mm[Hg] Dr. Misbah Elkins MD Work Phone: 4(414)[phone] [place] [address] 05-24-2025 20:55-0400 Heart rate 104 /min Dr. Misbah Elkins MD Work Phone: 4(740)970-603872 [place] [address] 05-24-2025 20:55-0400 Respiratory rate 18 /min Dr. Misbah Elkins MD Work Phone: 8([phone])122-996872 [place] [address] 05-24-2025 20:55-0400 SaO2% (BldA) [Mass fraction] 94 % Dr. Misbah Elkins MD Work Phone: 5(115)[phone] [place] [address] 05-24-2025 20:55-0400 Systolic blood pressure 143 mm[Hg] Dr. Misbah Elkins MD Work Phone: 0(900)853-525572 [place] [address] 05-24-2025 19:54-0400 Inhaled oxygen flow rate 2 L/min Dr. Misbah Elkins MD Work Phone: 9(933)707-953672 [place] [address] 05-24-2025 19:41-0400 Body height 160.[address] Misbah Elkins MD Work Phone: 5(951)698-152672 [place] [address] 05-24-2025 19:41-0400 Body mass index (BMI) [Ratio] 24 kg/m2 Dr. Misbah Elkins MD Work Phone: 3(617)656-734772 [place] [address] 05-24-2025 19:41-0400 Body weight 61.[address] Misbah Elkins MD Work Phone: 8(569)546-388572 [place] [address] 05-24-2025 08:44-0400 Body mass index (BMI) [Ratio] 21.6 kg/m2 Dr. Misbah Elkins MD Work Phone: 3(227)309-269272 [place] [address] 05-24-2025 08:44-0400 Body temperature 97.2 [degF] Dr. Misbah Elkins MD Work Phone: 5(252)203-593872 [place] [address] 05-24-2025 08:44-0400 Body weight 55.[address] Misbah Elkins MD Work Phone: 7(719)922-642572 [place] [address] 05-24-2025 08:44-0400 Diastolic blood pressure 74 mm[Hg] Dr. Misbah Elkins MD Work Phone: 6(384)770-604872 [place] [address] 05-24-2025 08:44-0400 Heart rate 102 /min Dr. Misbah Elkins MD Work Phone: 9(871)351-723872 [place] [address] 05-24-2025 08:44-0400 Inhaled oxygen flow rate 5 L/min Dr. Misbah Elkins MD Work Phone: 2(698)083-670972 [place] [address] 05-24-2025 08:44-0400 Respiratory rate 18 /min Dr. Misbah Elkins MD Work Phone: 6(915)252-564672 [place] [address] 05-24-2025 08:44-0400 SaO2% (BldA) [Mass fraction] 96 % Dr. Misbah Elkins MD Work Phone: 3(748)426-545272 [place] [address] 05-24-2025 08:44-0400 Systolic blood pressure 102 mm[Hg] Dr. Misbah Elkins MD Work Phone: 2(506)278-532272 [place] [address] 05-10-2025 23:09-0400 Body temperature 98 [degF] Dr. Misbah Elkins MD Work Phone: 4(158)761-097172 [place] [address] 05-10-2025 23:09-0400 Diastolic blood pressure 66 mm[Hg] Dr. Misbah Elkins MD Work Phone: 6(852)156-359472 [place] [address] 05-10-2025 23:09-0400 Heart rate 67 /min Dr. Misbah Elkins MD Work Phone: 8(272)790-730172 [place] [address] 05-10-2025 23:09-0400 Respiratory rate 16 /min Dr. Misbah Elkins MD Work Phone: 7(862)176-739272 [place] [address] 05-10-2025 23:09-0400 SaO2% (BldA) [Mass fraction] 99 % Dr. Misbah Elkins MD Work Phone: 4(740)681-190172 [place] [address] 05-10-2025 23:09-0400 Systolic blood pressure 120 mm[Hg] Dr. Misbah Elkins MD Work Phone: 1(550)136-743225 [place] [address] 05-10-2025 22:31-0400 Inhaled oxygen flow rate 4 L/min Dr. Misbah Elkins MD Work Phone: 3(520)850-023472 [place] [address] 05-10-2025 20:32-0400 Body height 160.[address] Misbah Elkins MD Work Phone: 9(438)513-394172 [place] [address] 05-10-2025 20:32-0400 Body mass index (BMI) [Ratio] 23.6 kg/m2 Dr. Misbah Elkins MD Work Phone: 4(001)567-529672 [place] [address] 05-10-2025 20:32-0400 Body weight 60.[address] Misbah Elkins MD Work Phone: 1(187)801-303172 [place] [address] 04-25-2025 15:59-0400 Body mass index (BMI) [Ratio] 20.47 kg/m2 Misbah Elkins MD Work Phone: 0(599)394-849650 [place] [address] 04-25-2025 15:59-0400 Body weight 55.79 kg Misbah Elkins MD Work Phone: 5(358)222-072450 [place] [address] 04-25-2025 15:59-0400 Diastolic blood pressure 84 mm[Hg] Misbah Elkins MD Work Phone: 5(590)328-387450 [place] [address] 04-25-2025 15:59-0400 Heart rate 104 /min Misbah Elkins MD Work Phone: 3(450)987-689450 [place] [address] 04-25-2025 15:59-0400 Respiratory rate 18 /min Misbah Elkins MD Work Phone: [facility] 04-25-2025 15:59-0400 SaO2% (BldA) [Mass fraction] 92 % Misbah Elkins MD Work Phone: [facility] Comment on above: 5 L/min 04-25-2025 15:59-0400 Systolic blood pressure 116 mm[Hg] Misbah Elkins MD Work Phone: 6(282)672-199550 [place] [address] 04-19-2025 12:55-0400 Heart rate 81 /min Dr. Misbah Elkins MD Work Phone: 3(498)702-722372 [place] [address] 04-19-2025 12:55-0400 Respiratory rate 18 /min Dr. Misbah Elkins MD Work Phone: 2(886)836-692872 [place] [address] 04-19-2025 08:40-0400 Body temperature 98.8 [degF] Dr. Misbah Elkins MD Work Phone: 5(779)647-343472 [place] [address] 04-19-2025 08:40-0400 Diastolic blood pressure 77 mm[Hg] Dr. Misbah Elkins MD Work Phone: 2(224)208-659972 [place] [address] 04-19-2025 08:40-0400 Inhaled oxygen flow rate 4 L/min Dr. Misbah Elkins MD Work Phone: 2(715)197-390072 [place] [address] 04-19-2025 08:40-0400 SaO2% (BldA) [Mass fraction] 97 % Dr. Misbah Elkins MD Work Phone: 2(140)286-305972 [place] [address] 04-19-2025 08:40-0400 Systolic blood pressure 102 mm[Hg] Dr. Misbah Elkins MD Work Phone: 6(820)616-912372 [place] [address] 04-19-2025 07:56-0400 Body mass index (BMI) [Ratio] 23.7 kg/m2 Dr. Misbah Elkins MD Work Phone: 2(219)245-917572 [place] [address] 04-19-2025 07:56-0400 Body weight 60.[address] Misbah Elkins MD Work Phone: 5(626)276-263772 [place] [address] 04-17-2025 14:06-0400 Body height 160.[address] Misbah Elkins MD Work Phone: 5(885)207-388772 [place] [address] 04-16-2025 00:57-0400 Body temperature 98.7 [degF] Dr. Misbah Elkins MD Work Phone: 5(679)991-533472 [place] [address] 04-16-2025 00:57-0400 Diastolic blood pressure 67 mm[Hg] Dr. Misbah Elkins MD Work Phone: 4(661)845-267472 [place] [address] 04-16-2025 00:57-0400 Heart rate 91 /min Dr. Misbah Elkins MD Work Phone: 6(133)943-435872 [place] [address] 04-16-2025 00:57-0400 Inhaled oxygen flow rate 4 L/min Dr. Misbah Elkins MD Work Phone: 6(869)723-518672 [place] [address] 04-16-2025 00:57-0400 Respiratory rate 18 /min Dr. Misbah Elkins MD Work Phone: 0(307)962-029972 [place] [address] 04-16-2025 00:57-0400 SaO2% (BldA) [Mass fraction] 100 % Dr. Misbah Elkins MD Work Phone: 4(241)150-246272 [place] [address] 04-16-2025 00:57-0400 Systolic blood pressure 168 mm[Hg] Dr. Misbah Elkins MD Work Phone: 9(844)614-347272 [place] [address] 04-15-2025 22:49-0400 Body height 160.[address] Misbah Elkins MD Work Phone: 6(691)603-404372 [place] [address] 04-15-2025 22:49-0400 Body mass index (BMI) [Ratio] 22.4 kg/m2 Dr. Misbah Elkins MD Work Phone: 7(875)049-742472 [place] [address] 04-15-2025 22:49-0400 Body weight 57.[address] Misbah Elkins MD Work Phone: 6(932)981-102672 [place] [address] 04-10-2025 13:37-0400 Body mass index (BMI) [Ratio] 20.54 kg/m2 Nicolas Greer SENIOR ERP CONSULTANT.MANAGER AUTO Work Phone: 7(880)145-207250 [place] [address] 04-10-2025 13:37-0400 Body weight 56 kg Nioclas Hector SENIOR ERP CONSULTANT.MANAGER AUTO Work Phone: [facility] 04-10-2025 13:37-0400 Diastolic blood pressure 82 mm[Hg] Nicolas Greer SENIOR ERP CONSULTANT.MANAGER AUTO Work Phone: [facility] 04-10-2025 13:37-0400 Heart rate 100 /min Nicolas Greer APRN.MANAGER AUTO Work Phone: [facility] 04-10-2025 13:37-0400 Respiratory rate 16 /min Nicolas Greer SENIOR ERP CONSULTANT.MANAGER AUTO Work Phone: [facility] 04-10-2025 13:37-0400 SaO2% (BldA) [Mass fraction] 99 % Nicolas Greer SENIOR ERP CONSULTANT.MANAGER AUTO Work Phone: [facility] 04-10-2025 13:37-0400 Systolic blood pressure 102 mm[Hg] Nicolas Greer SENIOR ERP CONSULTANT.MANAGER AUTO Work Phone: [facility] 04-10-2025 07:55-0400 Body height 160.[address] Misbah Elkins MD Work Phone: 1(554)463-916425 [place] [address] 04-10-2025 07:55-0400 Body mass index (BMI) [Ratio] 21.7 kg/m2 Dr. Misbah Elkins MD Work Phone: 9(443)819-385772 [place] [address] 04-10-2025 07:55-0400 Body temperature 97.4 [degF] Dr. Misbah Elkins MD Work Phone: 2(182)271-148872 [place] [address] 04-10-2025 07:55-0400 Body weight 55.[address] Misbah Elkins MD Work Phone: 5(139)332-506125 [place] [address] 04-10-2025 07:55-0400 Diastolic blood pressure 71 mm[Hg] Dr. Misbah Elkins MD Work Phone: 7(949)256-588025 [place] [address] 04-10-2025 07:55-0400 Heart rate 103 /min Dr. Misbah Elkins MD Work Phone: 9(005)413-720625 [place] [address] 04-10-2025 07:55-0400 Inhaled oxygen flow rate 3 L/min Dr. Misbah Elkins MD Work Phone: 9(413)192-074925 [place] [address] 04-10-2025 07:55-0400 Respiratory rate 16 /min Dr. Misbah Elkins MD Work Phone: 1(533)224-693325 [place] [address] 04-10-2025 07:55-0400 SaO2% (BldA) [Mass fraction] 95 % Dr. Misbah Elkins MD Work Phone: 4(071)815-126672 [place] [address] 04-10-2025 07:55-0400 Systolic blood pressure 101 mm[Hg] Dr. Misbah Elkins MD Work Phone: 1(387)978-963472 [place] [address] 03-15-2025 21:00-0400 Diastolic blood pressure 63 mm[Hg] Dr. Misbah Elkins MD Work Phone: 6(515)498-833672 [place] [address] 03-15-2025 21:00-0400 Heart rate 105 /min Dr. Misbah Elkins MD Work Phone: 3(274)354-742972 [place] [address] 03-15-2025 21:00-0400 Inhaled oxygen concentration 90 % Dr. Misbah Elkins MD Work Phone: 5(359)329-493672 [place] [address] 03-15-2025 21:00-0400 Respiratory rate 16 /min Dr. Misbah Elkins MD Work Phone: 3(913)137-348372 [place] [address] 03-15-2025 21:00-0400 SaO2% (BldA) [Mass fraction] 96 % Dr. Misbah Elkins MD Work Phone: 3(774)763-290072 [place] [address] 03-15-2025 21:00-0400 Systolic blood pressure 79 mm[Hg] Dr. Misbah Elkins MD Work Phone: 6(067)933-489572 [place] [address] 03-15-2025 12:00-0400 Body temperature 97.8 [degF] Dr. Misbah Elkins MD Work Phone: 3(898)136-213472 [place] [address] 03-15-2025 01:34-0400 Inhaled oxygen flow rate 60 L/min Dr. Misbah Elkins MD Work Phone: 3(464)307-419872 [place] [address] 03-14-2025 14:24-0400 Body height 160.[address] Misbah Elkins MD Work Phone: 7(051)467-873172 [place] [address] 03-14-2025 14:24-0400 Body weight [address] Misbah Elkins MD Work Phone: 9(348)962-637172 [place] [address] 03-14-2025 00:37-0400 Body mass index (BMI) [Ratio] 25 kg/m2 Dr. Misbah Elkins MD Work Phone: 0(624)045-169272 [place] [address] 03-13-2025 23:24-0400 Body temperature 98.7 [degF] Dr. Misbah Elkins MD Work Phone: 0(344)873-012172 [place] [address] 03-13-2025 23:24-0400 Diastolic blood pressure 61 mm[Hg] Dr. Misbah Elkins MD Work Phone: 4(983)516-705272 [place] [address] 03-13-2025 23:24-0400 Heart rate 106 /min Dr. Misbah Elkins MD Work Phone: 0(769)224-789272 [place] [address] 03-13-2025 23:24-0400 Respiratory rate 17 /min Dr. Misbah Elkins MD Work Phone: 6(595)929-692572 [place] [address] 03-13-2025 23:24-0400 SaO2% (BldA) [Mass fraction] 87 % Dr. Misbah Elkins MD Work Phone: 6(562)127-768972 [place] [address] 03-13-2025 23:24-0400 Systolic blood pressure 119 mm[Hg] Dr. Misbah Elkins MD Work Phone: 6(965)828-007072 [place] [address] 03-13-2025 23:00-0400 Inhaled oxygen flow rate 8 L/min Dr. Misbah Elkins MD Work Phone: 5(656)454-996872 [place] [address] 03-13-2025 11:02-0400 Body height 160.[address] Misbah Elkins MD Work Phone: 3(886)997-050672 [place] [address] 03-13-2025 11:02-0400 Body mass index (BMI) [Ratio] 23.3 kg/m2 Dr. Misbah Elkins MD Work Phone: 0(643)787-294072 [place] [address] 03-13-2025 11:02-0400 Body weight 59.[address] Misbah Elkins MD Work Phone: 2(298)338-675872 [place] [address] 03-10-2025 17:00-0400 Diastolic blood pressure 62 mm[Hg] Jane Farrell MD Work Phone: [facility] 03-10-2025 17:00-0400 Heart rate 88 /min Jane Farrell MD Work Phone: [facility] 03-10-2025 17:00-0400 Respiratory rate 18 /min Jane Farrell MD Work Phone: [facility] 03-10-2025 17:00-0400 SaO2% (BldA) [Mass fraction] 94 % Jane Farrell MD Work Phone: [facility] 03-10-2025 17:00-0400 Systolic blood pressure 94 mm[Hg] Jane Farrell MD Work Phone: [facility] 03-10-2025 15:20-0400 Body temperature 97.5 [degF] Jane Farrell MD Work Phone: [facility] 03-10-2025 12:26-0400 Body height 160 cm Jane Farrell MD Work Phone: [facility] 03-10-2025 12:26-0400 Body mass index (BMI) [Ratio] 23.03 kg/m2 Jane Farrell MD Work Phone: [facility] 03-10-2025 12:26-0400 Body weight 58.97 kg Jane Farrell MD Work Phone: [facility] 02-26-2025 15:48-0400 Body temperature 98.7 [degF] Dr. Misbah Elkins MD Work Phone: [facility] 02-26-2025 15:48-0400 Diastolic blood pressure 78 mm[Hg] Dr. Misbah Elkins MD Work Phone: [facility] 02-26-2025 15:48-0400 Heart rate 67 /min Dr. Misbah Elkins MD Work Phone: [facility] 02-26-2025 15:48-0400 Respiratory rate 12 /min Dr. Misbah Elkins MD Work Phone: [facility] 02-26-2025 15:48-0400 SaO2% (BldA) [Mass fraction] 94 % Dr. Misbah Elkins MD Work Phone: 7(927)780-521672 [place] [address] 02-26-2025 15:48-0400 Systolic blood pressure 145 mm[Hg] Dr. Misbah Elkins MD Work Phone: 6(251)201-929272 [place] [address] 02-26-2025 15:07-0400 Inhaled oxygen flow rate 5 L/min Dr. Misbah Elkins MD Work Phone: 9(663)963-899172 [place] [address] 02-26-2025 13:57-0400 Body height 160.[address] Misbah Elkins MD Work Phone: 5(433)522-087372 [place] [address] 02-26-2025 13:57-0400 Body mass index (BMI) [Ratio] 23.9 kg/m2 Dr. Misbah Elkins MD Work Phone: 6(148)810-101472 [place] [address] 02-26-2025 13:57-0400 Body weight 61.[address] Misbah Elkins MD Work Phone: 3(151)595-216872 [place] [address] 02-08-2025 08:20-0400 Body mass index (BMI) [Ratio] 23.7 kg/m2 Dr. Misbah Elkins MD Work Phone: 5(086)649-041772 [place] [address] 02-08-2025 08:20-0400 Body temperature 97.6 [degF] Dr. Misbah Elkins MD Work Phone: 1(383)345-850472 [place] [address] 02-08-2025 08:20-0400 Body weight 60.[address] Misbah Elkins MD Work Phone: 9(166)527-608872 [place] [address] 02-08-2025 08:20-0400 Diastolic blood pressure 67 mm[Hg] Dr. Misbah Elkins MD Work Phone: 3(521)225-865372 [place] [address] 02-08-2025 08:20-0400 Heart rate 87 /min Dr. Misbah Elkins MD Work Phone: 4(977)907-228272 [place] [address] 02-08-2025 08:20-0400 Inhaled oxygen flow rate 5 L/min Dr. Misbah Elkins MD Work Phone: 6(455)017-516172 [place] [address] 02-08-2025 08:20-0400 Respiratory rate 20 /min Dr. Misbah Elkins MD Work Phone: 4(047)452-930172 [place] [address] 02-08-2025 08:20-0400 SaO2% (BldA) [Mass fraction] 92 % Dr. Misbah Elkins MD Work Phone: 5(332)509-308172 [place] [address] 02-08-2025 08:20-0400 Systolic blood pressure 116 mm[Hg] Dr. Misbah Elkins MD Work Phone: 1(322)077-156972 [place] [address] 01-27-2025 12:55-0400 Diastolic blood pressure 76 mm[Hg] Dr. Misbah Elkins MD Work Phone: 6(174)819-823072 [place] [address] 01-27-2025 12:55-0400 Heart rate 93 /min Dr. Misbah Elkins MD Work Phone: 3(710)233-600072 [place] [address] 01-27-2025 12:55-0400 Respiratory rate 18 /min Dr. Misbah Elkins MD Work Phone: 1(257)298-728572 [place] [address] 01-27-2025 12:55-0400 SaO2% (BldA) [Mass fraction] 97 % Dr. Misbah Elkins MD Work Phone: 1(059)212-081572 [place] [address] 01-27-2025 12:55-0400 Systolic blood pressure 162 mm[Hg] Dr. Misbah Elkins MD Work Phone: 4(950)422-017272 [place] [address] 01-27-2025 12:00-0400 Body temperature 97.8 [degF] Dr. Misbah Elkins MD Work Phone: 2(536)135-471972 [place] [address] 01-27-2025 12:00-0400 Inhaled oxygen flow rate 5 L/min Dr. Misbah Elkins MD Work Phone: 3(718)262-734772 [place] [address] 01-27-2025 10:14-0400 Body height 160.[address] Misbah Elkins MD Work Phone: 6(847)584-121272 [place] [address] 01-27-2025 10:14-0400 Body mass index (BMI) [Ratio] 23.5 kg/m2 Dr. Misbah Elkins MD Work Phone: 4(604)891-829672 [place] [address] 01-27-2025 10:14-0400 Body weight 60.[address] Misbah Elkins MD Work Phone: [facility] 01-13-2025 10:51-0400 Body mass index (BMI) [Ratio] 24.45 kg/m2 Soila Older SENIOR ERP CONSULTANT.PROPERTY DISPOSAL OFFICER Work Phone: [facility] 01-13-2025 10:51-0400 Body weight 62.6 kg Soila Older SENIOR ERP CONSULTANT.PROPERTY DISPOSAL OFFICER Work Phone: [facility] 01-13-2025 10:51-0400 Diastolic blood pressure 60 mm[Hg] Soila Older SENIOR ERP CONSULTANT.PROPERTY DISPOSAL OFFICER Work Phone: [facility] 01-13-2025 10:51-0400 Heart rate 88 /min Soila Older SENIOR ERP CONSULTANT.PROPERTY DISPOSAL OFFICER Work Phone: [facility] 01-13-2025 10:51-0400 Respiratory rate 16 /min Soila Older SENIOR ERP CONSULTANT.PROPERTY DISPOSAL OFFICER Work Phone: [facility] 01-13-2025 10:51-0400 SaO2% (BldA) [Mass fraction] 85 % Soila Older SENIOR ERP CONSULTANT.PROPERTY DISPOSAL OFFICER Work Phone: [facility] 01-13-2025 10:51-0400 Systolic blood pressure 108 mm[Hg] Soila Older SENIOR ERP CONSULTANT.PROPERTY DISPOSAL OFFICER Work Phone: [facility] 01-01-2025 22:15-0400 Body temperature 97.9 [degF] Dr. Misbah Elkins MD Work Phone: [facility] 01-01-2025 22:15-0400 Diastolic blood pressure 70 mm[Hg] Dr. Misbah Elkins MD Work Phone: [facility] 01-01-2025 22:15-0400 Heart rate 108 /min Dr. Misbah Elkins MD Work Phone: [facility] 01-01-2025 22:15-0400 Respiratory rate 24 /min Dr. Misbah Elkins MD Work Phone: [facility] 01-01-2025 22:15-0400 SaO2% (BldA) [Mass fraction] 96 % Dr. Misbah Elkins MD Work Phone: 0(833)400-212072 [place] [address] 01-01-2025 22:15-0400 Systolic blood pressure 104 mm[Hg] Dr. Misbah Elkins MD Work Phone: 4(852)948-336072 [place] [address] 01-01-2025 21:01-0400 Inhaled oxygen flow rate 5 L/min Dr. Misbah Elkins MD Work Phone: 0(858)343-237472 [place] [address] 01-01-2025 20:52-0400 Body mass index (BMI) [Ratio] 24.7 kg/m2 Dr. Misbah Elkins MD Work Phone: 1(349)317-760372 [place] [address] 01-01-2025 20:52-0400 Body weight 63.[address] Misbah Elkins MD Work Phone: 7(961)172-828172 [place] [address] 01-01-2025 20:27-0400 Body height 160.[address] Misbah Elkins MD Work Phone: 0(133)430-927372 [place] [address] 12-24-2024 21:38-0400 Body temperature 97.8 [degF] Dr. Misbah Elkins MD Work Phone: 9(764)283-060072 [place] [address] 12-24-2024 21:38-0400 Diastolic blood pressure 89 mm[Hg] Dr. Misbah Elkins MD Work Phone: 9(709)579-951672 [place] [address] 12-24-2024 21:38-0400 Heart rate 98 /min Dr. Misbah Elkins MD Work Phone: 4(260)192-699872 [place] [address] 12-24-2024 21:38-0400 Respiratory rate 24 /min Dr. Misbah Elkins MD Work Phone: 2(159)277-281272 [place] [address] 12-24-2024 21:38-0400 SaO2% (BldA) [Mass fraction] 98 % Dr. Misbah Elkins MD Work Phone: 8(325)816-661472 [place] [address] 12-24-2024 21:38-0400 Systolic blood pressure 148 mm[Hg] Dr. Misbah Elkins MD Work Phone: 6(302)691-547872 [place] [address] 12-24-2024 20:46-0400 Inhaled oxygen flow rate 5 L/min Dr. Misbah Elkins MD Work Phone: 7(295)646-754272 [place] [address] 12-24-2024 19:39-0400 Body height 160.[address] Misbah Elkins MD Work Phone: 9(923)556-458372 [place] [address] 12-24-2024 19:39-0400 Body mass index (BMI) [Ratio] 24.3 kg/m2 Dr. Misbah Elknis MD Work Phone: 8(878)264-667972 [place] [address] 12-24-2024 19:39-0400 Body weight 62.[address] Misbah Elknis MD Work Phone: 0(538)255-732072 [place] [address] 12-23-2024 08:11-0400 Body mass index (BMI) [Ratio] 24.6 kg/m2 Dr. Misbah Elkins MD Work Phone: 1(628)856-495972 [place] [address] 12-23-2024 08:11-0400 Body temperature 97.4 [degF] Dr. Misbah Elkins MD Work Phone: 8(956)816-984872 [place] [address] 12-23-2024 08:11-0400 Body weight 63.[address] Misbah Elkins MD Work Phone: 2(618)843-026972 [place] [address] 12-23-2024 08:11-0400 Diastolic blood pressure 73 mm[Hg] Dr. Misbah Elkins MD Work Phone: 8(670)086-897972 [place] [address] 12-23-2024 08:11-0400 Heart rate 97 /min Dr. Misbah Elkins MD Work Phone: 9(462)425-293172 [place] [address] 12-23-2024 08:11-0400 Inhaled oxygen flow rate 3 L/min Dr. Misbah Elkins MD Work Phone: 3(511)901-069072 [place] [address] 12-23-2024 08:11-0400 Respiratory rate 22 /min Dr. Misbah Elkins MD Work Phone: 4(420)082-343172 [place] [address] 12-23-2024 08:11-0400 SaO2% (BldA) [Mass fraction] 90 % Dr. Misbah Elkins MD Work Phone: [facility] 12-23-2024 08:11-0400 Systolic blood pressure 153 mm[Hg] Dr. Misbah Elkins MD Work Phone: [facility] 12-19-2024 14:49-0400 Body mass index (BMI) [Ratio] 24.27 kg/m2 Tara Youngblood SENIOR ERP CONSULTANT.PROPERTY DISPOSAL OFFICER Work Phone: [facility] 12-19-2024 14:49-0400 Body weight 62.14 kg Tara Youngblood SENIOR ERP CONSULTANT.PROPERTY DISPOSAL OFFICER Work Phone: [facility] 12-19-2024 14:49-0400 Diastolic blood pressure 62 mm[Hg] Tara Youngblood SENIOR ERP CONSULTANT.PROPERTY DISPOSAL OFFICER Work Phone: [facility] 12-19-2024 14:49-0400 Heart rate 103 /min Tara Youngblood SENIOR ERP CONSULTANT.PROPERTY DISPOSAL OFFICER Work Phone: [facility] 12-19-2024 14:49-0400 Respiratory rate 16 /min Tara Youngblood SENIOR ERP CONSULTANT.PROPERTY DISPOSAL OFFICER Work Phone: [facility] 12-19-2024 14:49-0400 SaO2% (BldA) [Mass fraction] 93 % Tara Youngblood SENIOR ERP CONSULTANT.PROPERTY DISPOSAL OFFICER Work Phone: [facility] Comment on above: on 4 liters 12-19-2024 14:49-0400 Systolic blood pressure 118 mm[Hg] Tara Youngblood SENIOR ERP CONSULTANT.PROPERTY DISPOSAL OFFICER Work Phone: [facility] 12-12-2024 15:22-0400 Heart rate 87 /min Dr. Misbah Elkins MD Work Phone: [facility] 12-12-2024 15:22-0400 Respiratory rate 18 /min Dr. Misbah Elkins MD Work Phone: [facility] 12-12-2024 14:00-0400 Inhaled oxygen flow rate 3 L/min Dr. Misbah Elkins MD Work Phone: [facility] 12-12-2024 14:00-0400 SaO2% (BldA) [Mass fraction] 93 % Dr. Misbah Elkins MD Work Phone: 5(647)025-900072 [place] [address] 12-12-2024 13:21-0400 Body temperature 99.1 [degF] Dr. Misbah Elkins MD Work Phone: 3(027)581-813872 [place] [address] 12-12-2024 13:21-0400 Diastolic blood pressure 63 mm[Hg] Dr. Misbah Elkins MD Work Phone: 1(423)742-079372 [place] [address] 12-12-2024 13:21-0400 Systolic blood pressure 129 mm[Hg] Dr. Misbah Elkins MD Work Phone: 4(758)301-379772 [place] [address] 12-12-2024 12:07-0400 Inhaled oxygen concentration 56 % Dr. Misbah Elkins MD Work Phone: 5(999)109-823972 [place] [address] 12-12-2024 05:02-0400 Body mass index (BMI) [Ratio] 23.7 kg/m2 Dr. Misbah Elkins MD Work Phone: 2(878)063-796172 [place] [address] 12-12-2024 05:02-0400 Body weight 60.[address] Misbah Elkins MD Work Phone: 8(947)297-127672 [place] [address] 12-11-2024 13:34-0400 Body height 160.[address] Misbah Elkins MD Work Phone: 5(033)840-182072 [place] [address] 12-08-2024 07:52-0400 Inhaled oxygen flow rate 13 L/min Dr. Misbah Elkins MD Work Phone: 8(087)430-530572 [place] [address] 12-08-2024 07:52-0400 SaO2% (BldA) [Mass fraction] 92 % Dr. Misbah Elkins MD Work Phone: 6(744)922-578172 [place] [address] 12-08-2024 07:16-0400 Heart rate 79 /min Dr. Misbah Elkins MD Work Phone: 9(843)322-929072 [place] [address] 12-08-2024 07:16-0400 Respiratory rate 20 /min Dr. Misbah Elkins MD Work Phone: 3(333)802-468272 [place] [address] 12-08-2024 06:00-0400 Body mass index (BMI) [Ratio] 23.8 kg/m2 Dr. Misbah Elkins MD Work Phone: 9(343)551-499672 [place] [address] 12-08-2024 06:00-0400 Body weight 61.[address] Misbah Elkins MD Work Phone: 7(799)285-930772 [place] [address] 12-08-2024 04:47-0400 Body temperature 97.8 [degF] Dr. Misbah Elkins MD Work Phone: 6(201)142-873172 [place] [address] 12-08-2024 04:47-0400 Diastolic blood pressure 59 mm[Hg] Dr. Misbah Elkins MD Work Phone: 5(644)510-444872 [place] [address] 12-08-2024 04:47-0400 Systolic blood pressure 106 mm[Hg] Dr. Misbah Elkins MD Work Phone: 2(228)132-732372 [place] [address] 12-07-2024 08:56-0400 Inhaled oxygen concentration 56 % Dr. Misbah Elkins MD Work Phone: 3(942)680-250672 [place] [address] 12-06-2024 12:53-0400 Body height 160.[address] Misbah Elkins MD Work Phone: 1(795)537-915272 [place] [address] 12-04-2024 19:00-0400 Heart rate 101 /min Dr. Misbah Elkins MD Work Phone: 6(045)302-478872 [place] [address] 12-04-2024 19:00-0400 Respiratory rate 23 /min Dr. Misbah Elkins MD Work Phone: 1(516)766-218772 [place] [address] 12-04-2024 19:00-0400 SaO2% (BldA) [Mass fraction] 94 % Dr. Misbah Elkins MD Work Phone: 1(911)865-351972 [place] [address] 12-04-2024 18:06-0400 Body temperature 97.7 [degF] Dr. Misbah Elkins MD Work Phone: 9(476)704-139472 [place] [address] 12-04-2024 18:06-0400 Diastolic blood pressure 93 mm[Hg] Dr. Misbah Elkins MD Work Phone: [facility] 12-04-2024 18:06-0400 Systolic blood pressure 129 mm[Hg] Dr. Misbah Elkins MD Work Phone: [facility] 12-04-2024 18:00-0400 Inhaled oxygen flow rate 5 L/min Dr. Misbah Elkins MD Work Phone: [facility] 12-04-2024 15:51-0400 Body height 160.[address] Misbah Elkins MD Work Phone: [facility] 12-04-2024 15:51-0400 Body mass index (BMI) [Ratio] 23 kg/m2 Dr. Misbha Elkins MD Work Phone: [facility] 12-04-2024 15:51-0400 Body weight 58.[address] Misbah Elkins MD Work Phone: [facility] 12-01-2024 12:20-0500 Heart rate 90 /min Jane Farrell MD Work Phone: [facility] 12-01-2024 12:20-0500 Respiratory rate 16 /min Jane Farrell MD Work Phone: [facility] 12-01-2024 12:20-0500 SaO2% (BldA) [Mass fraction] 89 % Jane Farrell MD Work Phone: [facility] 12-01-2024 12:10-0500 Diastolic blood pressure 66 mm[Hg] Jane Farrell MD Work Phone: [facility] 12-01-2024 12:10-0500 Systolic blood pressure 97 mm[Hg] Jane Farrell MD Work Phone: [facility] 12-01-2024 10:46-0500 Body temperature 97.3 [degF] Jane Farrell MD Work Phone: [facility] 11-07-2024 14:03-0500 Body temperature 97.3 [degF] Misbah Elkins MD Work Phone: [facility] 11-07-2024 14:03-0500 Diastolic blood pressure 53 mm[Hg] Misbah Elkins MD Work Phone: [facility] 11-07-2024 14:03-0500 Heart rate 81 /min Misbah Elkins MD Work Phone: [facility] 11-07-2024 14:03-0500 Respiratory rate 20 /min Misbah Elkins MD Work Phone: [facility] 11-07-2024 14:03-0500 SaO2% (BldA) [Mass fraction] 93 % Misbah Elkins MD Work Phone: [facility] 11-07-2024 14:03-0500 Systolic blood pressure 83 mm[Hg] Misbah Elkins MD Work Phone: [facility] 11-02-2024 13:57-0500 Body height 160 cm Juan Nadeen SENIOR ERP CONSULTANT.PROPERTY DISPOSAL OFFICER Work Phone: [facility] 11-02-2024 13:57-0500 Body mass index (BMI) [Ratio] 24.45 kg/m2 Juan Nadeen SENIOR ERP CONSULTANT.PROPERTY DISPOSAL OFFICER Work Phone: [facility] 11-02-2024 13:57-0500 Body weight 62.6 kg Juan Nadeen SENIOR ERP CONSULTANT.PROPERTY DISPOSAL OFFICER Work Phone: [facility] 11-02-2024 13:57-0500 Diastolic blood pressure 71 mm[Hg] Juan Nadeen SENIOR ERP CONSULTANT.PROPERTY DISPOSAL OFFICER Work Phone: [facility] 11-02-2024 13:57-0500 Heart rate 84 /min Juan Nadeen SENIOR ERP CONSULTANT.PROPERTY DISPOSAL OFFICER Work Phone: [facility] 11-02-2024 13:57-0500 SaO2% (BldA) [Mass fraction] 97 % Juan Nadeen SENIOR ERP CONSULTANT.PROPERTY DISPOSAL OFFICER Work Phone: [facility] Comment on above: 97 2L 11-02-2024 13:57-0500 Systolic blood pressure 140 mm[Hg] Juan Nadeen SENIOR ERP CONSULTANT.PROPERTY DISPOSAL OFFICER Work Phone: [facility] 08-15-2024 11:31-0500 Body mass index (BMI) [Ratio] 25.15 kg/m2 Soila Older SENIOR ERP CONSULTANT.PROPERTY DISPOSAL OFFICER Work Phone: [facility] 08-15-2024 11:31-0500 Body weight 64.41 kg Soila Older SENIOR ERP CONSULTANT.PROPERTY DISPOSAL OFFICER Work Phone: [facility] 08-15-2024 11:31-0500 Diastolic blood pressure 78 mm[Hg] Soila Older SENIOR ERP CONSULTANT.PROPERTY DISPOSAL OFFICER Work Phone: [facility] 08-15-2024 11:31-0500 Heart rate 80 /min Soila Older SENIOR ERP CONSULTANT.PROPERTY DISPOSAL OFFICER Work Phone: [facility] 08-15-2024 11:31-0500 Respiratory rate 16 /min Soila Older SENIOR ERP CONSULTANT.PROPERTY DISPOSAL OFFICER Work Phone: [facility] 08-15-2024 11:31-0500 SaO2% (BldA) [Mass fraction] 93 % Soila Older SENIOR ERP CONSULTANT.PROPERTY DISPOSAL OFFICER Work Phone: [facility] 08-15-2024 11:31-0500 Systolic blood pressure 112 mm[Hg] Soila Older SENIOR ERP CONSULTANT.PROPERTY DISPOSAL OFFICER Work Phone: [facility] 08-10-2024 16:58-0500 Body mass index (BMI) [Ratio] 25.15 kg/m2 Soila Older SENIOR ERP CONSULTANT.PROPERTY DISPOSAL OFFICER Work Phone: [facility] 08-10-2024 16:58-0500 Body weight 64.41 kg Soila Older SENIOR ERP CONSULTANT.PROPERTY DISPOSAL OFFICER Work Phone: [facility] 08-10-2024 16:58-0500 Diastolic blood pressure 80 mm[Hg] Soila Older SENIOR ERP CONSULTANT.PROPERTY DISPOSAL OFFICER Work Phone: [facility] 08-10-2024 16:58-0500 Heart rate 96 /min Soila Older SENIOR ERP CONSULTANT.PROPERTY DISPOSAL OFFICER Work Phone: [facility] 08-10-2024 16:58-0500 Respiratory rate 16 /min Soila Older SENIOR ERP CONSULTANT.PROPERTY DISPOSAL OFFICER Work Phone: [facility] 08-10-2024 16:58-0500 SaO2% (BldA) [Mass fraction] 92 % Soila Older SENIOR ERP CONSULTANT.PROPERTY DISPOSAL OFFICER Work Phone: [facility] 08-10-2024 16:58-0500 Systolic blood pressure 118 mm[Hg] Soila Older SENIOR ERP CONSULTANT.PROPERTY DISPOSAL OFFICER Work Phone: [facility] 08-05-2024 15:36-0500 Body mass index (BMI) [Ratio] 25.38 kg/m2 Misbah Elkins MD Work Phone: [facility] 08-05-2024 15:36-0500 Body weight 65 kg Misbah Elkins MD Work Phone: [facility] 08-05-2024 15:36-0500 Diastolic blood pressure 72 mm[Hg] Misbah Elkins MD Work Phone: [facility] 08-05-2024 15:36-0500 Heart rate 91 /min Misbah Elkins MD Work Phone: [facility] 08-05-2024 15:36-0500 SaO2% (BldA) [Mass fraction] 95 % Misbah Elkins MD Work Phone: [facility] 08-05-2024 15:36-0500 Systolic blood pressure 118 mm[Hg] Misbah Elkins MD Work Phone: [facility] 05-18-2024 16:31-0400 Body mass index (BMI) [Ratio] 23.56 kg/m2 Misbah Elkins MD Work Phone: [facility] 05-18-2024 16:31-0400 Body weight 60.33 kg Misbah Elkins MD Work Phone: [facility] 05-18-2024 16:31-0400 Diastolic blood pressure 72 mm[Hg] Misbah Elkins MD Work Phone: [facility] 05-18-2024 16:31-0400 Heart rate 76 /min Misbah Elkins MD Work Phone: [facility] 05-18-2024 16:31-0400 Respiratory rate 16 /min Misbah Elkins MD Work Phone: [facility] 05-18-2024 16:31-0400 Systolic blood pressure 128 mm[Hg] Misbah Elkins MD Work Phone: [facility] 01-25-2024 14:02-0400 Body mass index (BMI) [Ratio] 24.45 kg/m2 Tara Youngblood SENIOR ERP CONSULTANT.PROPERTY DISPOSAL OFFICER Work Phone: [facility] 01-25-2024 14:02-0400 Body temperature 99.19 [degF] Tara Youngblood SENIOR ERP CONSULTANT.PROPERTY DISPOSAL OFFICER Work Phone: [facility] 01-25-2024 14:02-0400 Body weight 62.6 kg Tara Youngblood SENIOR ERP CONSULTANT.PROPERTY DISPOSAL OFFICER Work Phone: [facility] 01-25-2024 14:02-0400 Diastolic blood pressure 70 mm[Hg] Tara Youngblood SENIOR ERP CONSULTANT.PROPERTY DISPOSAL OFFICER Work Phone: [facility] 01-25-2024 14:02-0400 Heart rate 108 /min Tara Youngblood SENIOR ERP CONSULTANT.PROPERTY DISPOSAL OFFICER Work Phone: [facility] 01-25-2024 14:02-0400 SaO2% (BldA) [Mass fraction] 95 % Tara Youngblood SENIOR ERP CONSULTANT.PROPERTY DISPOSAL OFFICER Work Phone: [facility] Comment on above: 3L [place] 01-25-2024 14:02-0400 Systolic blood pressure 170 mm[Hg] Tara Youngblood SENIOR ERP CONSULTANT.PROPERTY DISPOSAL OFFICER Work Phone: [facility] 01-19-2024 23:56-0400 Body temperature 97.9 [degF] Dr. Víctor Huerta Work Phone: [facility] 01-19-2024 23:56-0400 Diastolic blood pressure 81 mm[Hg] Dr. Víctor Huerta Work Phone: [facility] 01-19-2024 23:56-0400 Heart rate 105 /min Dr. Víctor Huerta Work Phone: [facility] 01-19-2024 23:56-0400 Respiratory rate 20 /min Dr. Víctor Huerta Work Phone: [facility] 01-19-2024 23:56-0400 SaO2% (BldA) [Mass fraction] 95 % Dr. Víctor Huerta Work Phone: [facility] 01-19-2024 23:56-0400 Systolic blood pressure 174 mm[Hg] Dr. Víctor Huerta Work Phone: [facility] 01-19-2024 22:07-0400 Body height 160.[address] Víctor Huerta Work Phone: [facility] 01-19-2024 22:07-0400 Body mass index (BMI) [Ratio] 24.5 kg/m2 Dr. Víctor Huerta Work Phone: [facility] 01-19-2024 22:07-0400 Body weight 62.[address] Víctor Huerta Work Phone: [facility] 01-12-2024 11:30-0400 Heart rate 96 /min Anat Gutiérrez APRN.PROPERTY DISPOSAL OFFICER Work Phone: [facility] 01-12-2024 11:08-0400 Body weight 61.69 kg Anat Gutiérrez APRN.PROPERTY DISPOSAL OFFICER Work Phone: [facility] 01-12-2024 11:08-0400 Diastolic blood pressure 68 mm[Hg] Anat Gutiérrez SENIOR ERP CONSULTANT.PROPERTY DISPOSAL OFFICER Work Phone: [facility] 01-12-2024 11:08-0400 Respiratory rate 18 /min Anat Gutiérrez APRN.PROPERTY DISPOSAL OFFICER Work Phone: [facility] 01-12-2024 11:08-0400 SaO2% (BldA) [Mass fraction] 90 % Anat Gutiérrez APRN.PROPERTY DISPOSAL OFFICER Work Phone: [facility] 01-12-2024 11:08-0400 Systolic blood pressure 96 mm[Hg] Anat Gutiérrez APRN.CNP Work Phone: [facility] 01-05-2024 11:24-0400 Body temperature 97.8 [degF] Dr. Víctor Huerta Work Phone: [facility] 01-05-2024 11:24-0400 Diastolic blood pressure 99 mm[Hg] Dr. Víctor Huerta Work Phone: [facility] 01-05-2024 11:24-0400 Heart rate 98 /min Dr. Víctor Huerta Work Phone: [facility] 01-05-2024 11:24-0400 Inhaled oxygen flow rate 2 L/min Dr. Víctor Huerta Work Phone: [facility] 01-05-2024 11:24-0400 Respiratory rate 18 /min Dr. Víctor Huerta Work Phone: [facility] 01-05-2024 11:24-0400 SaO2% (BldA) [Mass fraction] 92 % Dr. Víctor Huerta Work Phone: [facility] 01-05-2024 11:24-0400 Systolic blood pressure 155 mm[Hg] Dr. Víctor Huerta Work Phone: [facility] 01-05-2024 05:32-0400 Body mass index (BMI) [Ratio] 23.2 kg/m2 Dr. Víctor Huerta Work Phone: [facility] 01-05-2024 05:32-0400 Body weight 59.[address] Víctor Huerta Work Phone: [facility] 01-04-2024 11:11-0400 Body height 160.[address] Víctor Huerta Work Phone: [facility] 01-02-2024 22:48-0400 Body temperature 98.7 [degF] [facility] 01-02-2024 22:48-0400 Diastolic blood pressure 81 mm[Hg] [facility] 01-02-2024 22:48-0400 Heart rate 115 /min [facility] 01-02-2024 22:48-0400 Respiratory rate 21 /min [facility] 01-02-2024 22:48-0400 SaO2% (BldA) [Mass fraction] 93 % [facility] 01-02-2024 22:48-0400 Systolic blood pressure 102 mm[Hg] [facility] 01-02-2024 22:00-0400 Inhaled oxygen flow rate 2 L/min [facility] 01-02-2024 18:57-0400 Body height 160.02 cm [facility] 01-02-2024 18:57-0400 Body mass index (BMI) [Ratio] 23.9 kg/m2 [facility] 01-02-2024 18:57-0400 Body weight 61.23 kg [facility] 12-16-2023 14:13-0400 Body weight 61.05 kg Candie Denbow PA-C Work Phone: [facility] 12-16-2023 14:13-0400 Diastolic blood pressure 74 mm[Hg] Candie Denbow PA-C Work Phone: [facility] 12-16-2023 14:13-0400 Heart rate 130 /min Candie Denbow PA-C Work Phone: [facility] 12-16-2023 14:13-0400 Respiratory rate 18 /min Candie Denbow PA-C Work Phone: [facility] 12-16-2023 14:13-0400 SaO2% (BldA) [Mass fraction] 95 % Candie Denbow PA-C Work Phone: [facility] 12-16-2023 14:13-0400 Systolic blood pressure 124 mm[Hg] Candie Denbow PA-C Work Phone: [facility] 07-08-2023 20:38-0400 Diastolic blood pressure 68 mm[Hg] [employer] SOILA EASTON Work Phone: [facility] 07-08-2023 20:38-0400 Respiratory rate 20 /min [employer]ILA OLDER Work Phone: 3(379)833-406925 [place] [address] 07-08-2023 20:38-0400 SaO2% (BldA) [Mass fraction] 97 % [employer]ILA OLDER Work Phone: 2(314)926-198425 [place] [address] 07-08-2023 20:38-0400 Systolic blood pressure 150 mm[Hg] [employer]ILA OLDER Work Phone: 0(403)197-850625 [place] [address] 07-08-2023 18:57-0400 Heart rate 103 /min [employer] OLDER Work Phone: 5(479)410-538425 [place] [address] 07-08-2023 18:11-0400 Body height 160.02 cm [employer]ILA OLDER Work Phone: 1(097)214-464425 [place] [address] 07-08-2023 18:11-0400 Body mass index (BMI) [Ratio] 23.9 kg/m2 [employer] O[employer]ER Work Phone: 5(538)331-657325 [place] [address] 07-08-2023 18:11-0400 Body temperature 98.1 [degF] [employer]ILA OLDER Work Phone: 4(610)533-900825 [place] [address] 07-08-2023 18:11-0400 Body weight 61.23 kg [employer]IL[employer] OLDER Work Phone: 0(425)257-043672 [place] [address] 06-30-2023 07:55-0400 Body mass index (BMI) [Ratio] 23.3 kg/m2 [employer]ILA OLDER Work Phone: 8(191)651-395072 [place] [address] 06-30-2023 07:55-0400 Body temperature 97.4 [degF] [employer]ILA OLDER Work Phone: 0(660)477-156072 [place] [address] 06-30-2023 07:55-0400 Body weight 59.87 kg [employer]ILA OLDER Work Phone: 1(946)960-081525 [place] [address] 06-30-2023 07:55-0400 Diastolic blood pressure 87 mm[Hg] [employer] SOILA OLDER Work Phone: 9(455)577-262225 [place] [address] 06-30-2023 07:55-0400 Heart rate 98 /min [employer] SOILA OLDER Work Phone: [facility] 06-30-2023 07:55-0400 Respiratory rate 20 /min [employer]STITCH[employer] SOILA OLDER Work Phone: [facility] 06-30-2023 07:55-0400 SaO2% (BldA) [Mass fraction] 94 % [employer] SOILA OLDER Work Phone: [facility] 06-30-2023 07:55-0400 Systolic blood pressure 150 mm[Hg] [employer]STITCHER [employer] SOILA OLDER Work Phone: [facility] 06-02-2023 15:01-0400 Body height 160.02 cm [facility] 06-02-2023 15:01-0400 Body mass index (BMI) [Ratio] 23 kg/m2 [facility] 06-02-2023 15:01-0400 Body temperature 97.2 [degF] [facility] 06-02-2023 15:01-0400 Body weight 58.96 kg [facility] 06-02-2023 15:01-0400 Diastolic blood pressure 99 mm[Hg] [facility] 06-02-2023 15:01-0400 Heart rate 100 /min [facility] 06-02-2023 15:01-0400 Respiratory rate 17 /min [facility] 06-02-2023 15:01-0400 SaO2% (BldA) [Mass fraction] 95 % [facility] 06-02-2023 15:01-0400 Systolic blood pressure 148 mm[Hg] [facility] 04-15-2023 12:39-0400 Body height 160 cm Candie Denbow PA-C Work Phone: [facility] 04-15-2023 12:39-0400 Body temperature 97.2 [degF] Candie Denbow PA-C Work Phone: [facility] 04-15-2023 12:39-0400 Body weight 59.42 kg Candie Denbow PA-C Work Phone: [facility] 04-15-2023 12:39-0400 Diastolic blood pressure 52 mm[Hg] Candie Denbow PA-C Work Phone: [facility] 04-15-2023 12:39-0400 Heart rate 104 /min Candie Denbow PA-C Work Phone: [facility] 04-15-2023 12:39-0400 Respiratory rate 16 /min Candie Denbow PA-C Work Phone: [facility] 04-15-2023 12:39-0400 SaO2% (BldA) [Mass fraction] 94 % Candie Denbow PA-C Work Phone: [facility] 04-15-2023 12:39-0400 Systolic blood pressure 104 mm[Hg] Canide Denbow PA-C Work Phone: [facility] 11-28-2022 13:00-0500 Body temperature 98.01 [degF] Soila Older SENIOR ERP CONSULTANT.PROPERTY DISPOSAL OFFICER Work Phone: [facility] 11-28-2022 13:00-0500 Body weight 58.51 kg Soila Older SENIOR ERP CONSULTANT.PROPERTY DISPOSAL OFFICER Work Phone: [facility] 11-28-2022 13:00-0500 Diastolic blood pressure 62 mm[Hg] Soila Older SENIOR ERP CONSULTANT.PROPERTY DISPOSAL OFFICER Work Phone: [facility] 11-28-2022 13:00-0500 Heart rate 108 /min Soila Older SENIOR ERP CONSULTANT.PROPERTY DISPOSAL OFFICER Work Phone: [facility] 11-28-2022 13:00-0500 Respiratory rate 16 /min Soila Older SENIOR ERP CONSULTANT.PROPERTY DISPOSAL OFFICER Work Phone: [facility] 11-28-2022 13:00-0500 SaO2% (BldA) [Mass fraction] 96 % Soila Older SENIOR ERP CONSULTANT.PROPERTY DISPOSAL OFFICER Work Phone: [facility] 11-28-2022 13:00-0500 Systolic blood pressure 98 mm[Hg] Soila Older SENIOR ERP CONSULTANT.PROPERTY DISPOSAL OFFICER Work Phone: [facility] 11-26-2022 13:13-0500 Body temperature 98.8 [degF] Mariluz Teraner PA-C Work Phone: [facility] 11-26-2022 13:13-0500 Body weight 58.7 kg Mariluz Teraner PA-C Work Phone: [facility] 11-26-2022 13:13-0500 Diastolic blood pressure 63 mm[Hg] Mariluz Teraner PA-C Work Phone: [facility] 11-26-2022 13:13-0500 Heart rate 111 /min Mariluz Teraner PA-C Work Phone: [facility] 11-26-2022 13:13-0500 Respiratory rate 24 /min Mariluz Teraner PA-C Work Phone: [facility] 11-26-2022 13:13-0500 SaO2% (BldA) [Mass fraction] 96 % Mariluz Teraner PA-C Work Phone: [facility] 11-26-2022 13:13-0500 Systolic blood pressure 96 mm[Hg] Mariluz Teraner PA-C Work Phone: [facility] 11-25-2022 09:50-0500 Body height 160 cm Misbah Elkins MD Work Phone: [facility] 11-25-2022 09:50-0500 Body temperature 97.5 [degF] Misbah Elkins MD Work Phone: [facility] 11-25-2022 09:50-0500 Body weight 58.97 kg Misbah Elkins MD Work Phone: [facility] 11-25-2022 09:50-0500 Diastolic blood pressure 60 mm[Hg] Misbah Elkins MD Work Phone: [facility] 11-25-2022 09:50-0500 Heart rate 111 /min Misbah Elkins MD Work Phone: [facility] 11-25-2022 09:50-0500 Respiratory rate 16 /min Misbah Elkins MD Work Phone: [facility] 11-25-2022 09:50-0500 SaO2% (BldA) [Mass fraction] 97 % Misbah Elkins MD Work Phone: [facility] 11-25-2022 09:50-0500 Systolic blood pressure 132 mm[Hg] Misbah Elkins MD Work Phone: [facility] 11-11-2022 15:59-0500 Body height 160 cm Misbah Elkins MD Work Phone: [facility] 11-11-2022 15:59-0500 Body temperature 97.7 [degF] Misbah Elkins MD Work Phone: [facility] 11-11-2022 15:59-0500 Body weight 58.97 kg Misbah Elkins MD Work Phone: [facility] 11-11-2022 15:59-0500 Diastolic blood pressure 56 mm[Hg] Misbah Elkins MD Work Phone: [facility] 11-11-2022 15:59-0500 Heart rate 96 /min Misbah Elkins MD Work Phone: [facility] 11-11-2022 15:59-0500 Respiratory rate 12 /min Misbah Elkins MD Work Phone: [facility] 11-11-2022 15:59-0500 SaO2% (BldA) [Mass fraction] 99 % Misbah Elkins MD Work Phone: [facility] 11-11-2022 15:59-0500 Systolic blood pressure 108 mm[Hg] Misbah Elkins MD Work Phone: [facility] 11-07-2022 13:41-0500 Heart rate 96 /min [employer]A OLDER Work Phone: [facility] 11-07-2022 13:41-0500 Inhaled oxygen flow rate 2 L/min [employer] SOILA OLDER Work Phone: [facility] 11-07-2022 13:41-0500 Respiratory rate 20 /min [employer]ST[employer] SOILA OLDER Work Phone: [facility] 11-07-2022 13:41-0500 SaO2% (BldA) [Mass fraction] 95 % [employer] SOILA OLDER Work Phone: [facility] 11-07-2022 09:20-0500 Body temperature 98 [degF] [employer]STITCHER [employer] SOILA OLDER Work Phone: [facility] 11-07-2022 09:20-0500 Diastolic blood pressure 85 mm[Hg] [employer]STITCHER [employer] SOILA OLDER Work Phone: [facility] 11-07-2022 09:20-0500 Systolic blood pressure 126 mm[Hg] [employer]STITCHER [employer] SOILA OLDER Work Phone: [facility] 11-07-2022 06:00-0500 Body weight 62.2 kg [employer]ST[employer] SOILA OLDER Work Phone: [facility] 11-05-2022 10:20-0500 Body height 160.02 cm [employer]STITCHER [employer] SOILA OLDER Work Phone: [facility] 11-05-2022 07:21-0500 Inhaled oxygen concentration 30 % [employer]ST[employer]ILA OLDER Work Phone: [facility] 11-03-2022 08:46-0500 Body height 160 cm Misbah Elkins MD Work Phone: [facility] 11-03-2022 08:46-0500 Body temperature 98.1 [degF] Misbah Elkins MD Work Phone: [facility] 11-03-2022 08:46-0500 Body weight 59.88 kg Misbah Elkins MD Work Phone: [facility] 11-03-2022 08:46-0500 Diastolic blood pressure 60 mm[Hg] Misbah Elkins MD Work Phone: [facility] 11-03-2022 08:46-0500 Heart rate 101 /min Misbah Elkins MD Work Phone: [facility] 11-03-2022 08:46-0500 Respiratory rate 20 /min Misbah Elkins MD Work Phone: [facility] 11-03-2022 08:46-0500 SaO2% (BldA) [Mass fraction] 94 % Misbah Elkins MD Work Phone: [facility] 11-03-2022 08:46-0500 Systolic blood pressure 140 mm[Hg] Misbah Elkins MD Work Phone: [facility] 11-01-2022 23:22-0500 Body mass index (BMI) [Ratio] 23.7 kg/m2 [employer] SOILA OLDER Work Phone: [facility] 10-29-2022 07:12-0500 Body temperature 97.7 [degF] Text Entry [facility] 10-29-2022 07:12-0500 Diastolic blood pressure 63 mm[Hg] Text Entry Free [facility] 10-29-2022 07:12-0500 Heart rate 69 /min Text Entry Free [facility] 10-29-2022 07:12-0500 Respiratory rate 18 /min Text Entry Free [facility] 10-29-2022 07:12-0500 SaO2% (BldA) [Mass fraction] 97 % Text Entry Free [facility] 10-29-2022 07:12-0500 Systolic blood pressure 100 mm[Hg] Text Entry Free [facility] 10-20-2022 07:01-0500 Body temperature 9 [degF] [employer] SOILA OLDER Work Phone: [facility] 10-20-2022 07:01-0500 Diastolic blood pressure 74 mm[Hg] [employer]STITCHER [employer] SOILA OLDER Work Phone: [facility] 10-20-2022 07:01-0500 Heart rate 99 /min [employer]ILA OLDER Work Phone: [facility] 10-20-2022 07:01-0500 Respiratory rate 15 /min [employer]ILA OLDER Work Phone: [facility] 10-20-2022 07:01-0500 SaO2% (BldA) [Mass fraction] 94 % [employer] SOILA OLDER Work Phone: [facility] 10-20-2022 07:01-0500 Systolic blood pressure 167 mm[Hg] [employer]STITCHER [employer] SOILA OLDER Work Phone: [facility] 10-19-2022 18:57-0500 Body height 160.02 cm [employer] SOILA OLDER Work Phone: [facility] 10-19-2022 18:57-0500 Body mass index (BMI) [Ratio] 23.6 kg/m2 [employer]ILA OLDER Work Phone: 9(104)668-777325 [place] [address] 10-19-2022 18:57-0500 Body weight 60.32 kg [employer]A OLDER Work Phone: 5(094)083-169425 [place] [address] 09-05-2022 13:43-0500 Body mass index (BMI) [Ratio] 23.4 kg/m2 [employer] OLDER Work Phone: 3([phone] [place] [id number] 09-05-2022 13:43-0500 Body temperature 98.4 [degF] [employer] O[employer]ER Work Phone: [phone] [place] [id number] 09-05-2022 13:43-0500 Body weight 60.04 kg [employer]IL[employer] O[employer]ER Work Phone: [phone] [place] [id number] 09-05-2022 13:43-0500 Diastolic blood pressure 74 mm[Hg] [employer] SOILA OLDER Work Phone: [phone] [place] [id number] 09-05-2022 13:43-0500 Heart rate 93 /min [employer] O[employer] Work Phone: 3([phone] [place] [id number] 09-05-2022 13:43-0500 Inhaled oxygen flow rate 2 L/min [employer] Work Phone: [phone] [place] [address] 09-05-2022 13:43-0500 Respiratory rate 18 /min TOPSTITCHER ZIGZAG-C SOILA OLDER Work Phone: [facility] 09-05-2022 13:43-0500 SaO2% (BldA) [Mass fraction] 96 % TOPSTITCHER ZIGZAG-C SOILA OLDER Work Phone: [facility] 09-05-2022 13:43-0500 Systolic blood pressure 104 mm[Hg] TOPSTITCHER ZIGZAG-C SOILA OLDER Work Phone: [facility] 08-27-2022 12:49-0500 Body temperature 98.29 [degF] Soila Older SENIOR ERP CONSULTANT.PROPERTY DISPOSAL OFFICER Work Phone: [facility] 08-27-2022 12:49-0500 Body weight 59.88 kg Soila Older SENIOR ERP CONSULTANT.PROPERTY DISPOSAL OFFICER Work Phone: [facility] 08-27-2022 12:49-0500 Diastolic blood pressure 80 mm[Hg] Soila Older SENIOR ERP CONSULTANT.PROPERTY DISPOSAL OFFICER Work Phone: [facility] 08-27-2022 12:49-0500 Heart rate 80 /min Soila Older SENIOR ERP CONSULTANT.PROPERTY DISPOSAL OFFICER Work Phone: [facility] 08-27-2022 12:49-0500 Respiratory rate 16 /min Soila Older SENIOR ERP CONSULTANT.PROPERTY DISPOSAL OFFICER Work Phone: [facility] 08-27-2022 12:49-0500 SaO2% (BldA) [Mass fraction] 82 % Soila Older SENIOR ERP CONSULTANT.PROPERTY DISPOSAL OFFICER Work Phone: [facility] 08-27-2022 12:49-0500 Systolic blood pressure 132 mm[Hg] Soila Older SENIOR ERP CONSULTANT.PROPERTY DISPOSAL OFFICER Work Phone: [facility] 08-22-2022 19:41-0500 Diastolic blood pressure 91 mm[Hg] TOPSTITCHER ZIGZAG-C SOILA OLDER Work Phone: [facility] 08-22-2022 19:41-0500 Heart rate 100 /min TOPSTITCHER ZIGZAG-C SOILA OLDER Work Phone: [facility] 08-22-2022 19:41-0500 Respiratory rate 24 /min TOPSTITCHER ZIGZAG-C SOILA OLDER Work Phone: [facility] 08-22-2022 19:41-0500 SaO2% (BldA) [Mass fraction] 93 % TOPSTITCHER ZIGZAG-C SOILA OLDER Work Phone: [facility] 08-22-2022 19:41-0500 Systolic blood pressure 146 mm[Hg] TOPSTITCHER ZIGZAG-C SOILA OLDER Work Phone: [facility] 08-22-2022 18:11-0500 Body temperature 97.8 [degF] TOPSTITCHER ZIGZAG-C SOILA OLDER Work Phone: [facility] 08-22-2022 18:11-0500 Inhaled oxygen flow rate 2 L/min TOPSTITCHER ZIGZAG-C SOILA OLDER Work Phone: [facility] 08-22-2022 16:06-0500 Body mass index (BMI) [Ratio] 23.5 kg/m2 TOPSTITCHER ZIGZAG-C SOILA OLDER Work Phone: [facility] 08-22-2022 16:06-0500 Body weight 60.2 kg TOPSTITCHER ZIGZAG-C SOILA OLDER Work Phone: [facility] 07-18-2022 09:56-0400 Body weight 60.33 kg Soila Older SENIOR ERP CONSULTANT.PROPERTY DISPOSAL OFFICER Work Phone: [facility] 07-18-2022 09:56-0400 Diastolic blood pressure 72 mm[Hg] Soila Older SENIOR ERP CONSULTANT.PROPERTY DISPOSAL OFFICER Work Phone: [facility] 07-18-2022 09:56-0400 Heart rate 72 /min Soila Older SENIOR ERP CONSULTANT.PROPERTY DISPOSAL OFFICER Work Phone: [facility] 07-18-2022 09:56-0400 Respiratory rate 16 /min Soila Older SENIOR ERP CONSULTANT.PROPERTY DISPOSAL OFFICER Work Phone: [facility] 07-18-2022 09:56-0400 Systolic blood pressure 128 mm[Hg] Soila Older SENIOR ERP CONSULTANT.PROPERTY DISPOSAL OFFICER Work Phone: [facility] 05-27-2022 09:13-0400 Body height 160 cm Claudia Odonnell MD Work Phone: [facility] 05-27-2022 09:13-0400 Body weight 59.06 kg Claudia Odonnell MD Work Phone: [facility] 05-27-2022 09:13-0400 Diastolic blood pressure 72 mm[Hg] Claudia Odonnell MD Work Phone: [facility] 05-27-2022 09:13-0400 Heart rate 81 /min Claudia Odonnell MD Work Phone: [facility] 05-27-2022 09:13-0400 Systolic blood pressure 116 mm[Hg] Claudia Odonnell MD Work Phone: [facility] 04-17-2022 08:57-0400 Body weight 58.51 kg Soila Older SENIOR ERP CONSULTANT.PROPERTY DISPOSAL OFFICER Work Phone: [facility] 04-17-2022 08:57-0400 Diastolic blood pressure 72 mm[Hg] Soila Older SENIOR ERP CONSULTANT.PROPERTY DISPOSAL OFFICER Work Phone: [facility] 04-17-2022 08:57-0400 Heart rate 92 /min Soila Older SENIOR ERP CONSULTANT.PROPERTY DISPOSAL OFFICER Work Phone: [facility] 04-17-2022 08:57-0400 Respiratory rate 16 /min Soila Older SENIOR ERP CONSULTANT.PROPERTY DISPOSAL OFFICER Work Phone: [facility] 04-17-2022 08:57-0400 Systolic blood pressure 128 mm[Hg] Soila Older SENIOR ERP CONSULTANT.PROPERTY DISPOSAL OFFICER Work Phone: [facility] 03-03-2022 14:20-0400 Inhaled oxygen flow rate 2 L/min [facility] Work Phone: 03-03-2022 14:20-0400 SaO2% (BldA) [Mass fraction] 94 % TOPSTITCHER ZIGZAG-Nichole Teague TOPSTITCHER ZIGZAG Work Phone: [facility] Work Phone: 03-03-2022 14:16-0400 Diastolic blood pressure 84 mm[Hg] CARMEN Teague TOPSTITCHER ZIGZAG Work Phone: [facility] Work Phone: 03-03-2022 14:16-0400 Heart rate 91 /min TOPSTITCHER ZIGZAGMiriam Teague TOPSTITCHER ZIGZAG Work Phone: [facility] Work Phone: 03-03-2022 14:16-0400 Respiratory rate 16 /min TOPSTITCHER ZIGZAG-Nichole Teague TOPSTITCHER ZIGZAG Work Phone: [facility] Work Phone: 03-03-2022 14:16-0400 Systolic blood pressure 108 mm[Hg] TOPSTITCHER ZIGZAG-Nichole Teague TOPSTITCHER ZIGZAG Work Phone: [facility] Work Phone: 03-03-2022 11:36-0400 Body height 160.02 cm TOPSTITCHER ZIGZAG-Nichole Teague TOPSTITCHER ZIGZAG Work Phone: [facility] Work Phone: 03-03-2022 11:36-0400 Body mass index (BMI) [Ratio] 23.9 kg/m2 TOPSTITCHER ZIGZAG-Nichole Teague TOPSTITCHER ZIGZAG Work Phone: [facility] Work Phone: 03-03-2022 11:36-0400 Body temperature 97.8 [degF] TOPSTITCHER ZIGZAG-Nichole Teague TOPSTITCHER ZIGZAG Work Phone: [facility] Work Phone: 03-03-2022 11:36-0400 Body weight 61.23 kg TOPSTITCHER ZIGZAG-Nichole Teague TOPSTITCHER ZIGZAG Work Phone: [facility] Work Phone: 01-16-2022 09:30-0400 Body mass index (BMI) [Ratio] 22.8 kg/m2 TOPSTITCHER ZIGZAG-Nichole Teague TOPSTITCHER ZIGZAG Work Phone: [facility] Work Phone: 01-16-2022 09:30-0400 Body temperature 98.9 [degF] TOPSTITCHER ZIGZAG-Nichole Teague TOPSTITCHER ZIGZAG Work Phone: [facility] Work Phone: 01-16-2022 09:30-0400 Body weight 58.51 kg TOPSTITCHER ZIGZAG-Nichole Teague TOPSTITCHER ZIGZAG Work Phone: [facility] Work Phone: 01-16-2022 09:30-0400 Diastolic blood pressure 82 mm[Hg] TOPSTITCHER ZIGZAG-Nichole Teague TOPSTITCHER ZIGZAG Work Phone: [facility] Work Phone: 01-16-2022 09:30-0400 Heart rate 108 /min TOPSTITCHER ZIGZAG-C Theron Ho TOPSTITCHER ZIGZAG Work Phone: [facility] Work Phone: 01-16-2022 09:30-0400 Respiratory rate 19 /min TOPSTITCHER ZIGZAG-C Theron Teague TOPSTITCHER ZIGZAG Work Phone: [facility] Work Phone: 01-16-2022 09:30-0400 SaO2% (BldA) [Mass fraction] 96 % TOPSTITCHER ZIGZAG-C Theron Teague TOPSTITCHER ZIGZAG Work Phone: [facility] Work Phone: 01-16-2022 09:30-0400 Systolic blood pressure 104 mm[Hg] TOPSTITCHER ZIGZAG-C Theron Teague TOPSTITCHER ZIGZAG Work Phone: [facility] Work Phone: Encounters Encounter Date Encounter Type Care Provider Facility Start: 07-12-2025 Emergency department patient visit [facility] Facility:[facility] Start: 07-10-2025 End: 07-10-2025 Emergency department patient visit Joanne Kelly Facility:[facility] Start: 07-06-2025 End: 07-07-2025 Dr. Misbah Elkins MD Work Phone: -Emergency Department Work Phone: Start: 07-06-2025 End: 07-07-2025 Emergency department patient visit [facility] Facility:[facility] Start: 07-06-2025 ambulatory [facility] Facility:[facility] Start: 07-06-2025 Marshal Segura DO -[facility] Start: 07-06-2025 End: 07-06-2025 Marshal Segura DO -Endoscopy Work Phone: Start: 07-06-2025 End: 07-06-[address] Misbah Elkins MD Work Phone: -Endoscopy Start: 06-12-2025 End: 06-14-2025 Refill Soila Easton APRN.PROPERTY DISPOSAL OFFICER Work Phone: [facility] [place] Comment on above: Refill Request Start: 05-31-2025 End: 05-31-2025 Office outpatient visit 15 minutes Soila Easton UNA.PROPERTY DISPOSAL OFFICER Work Phone: [facility] [place] Comment on above: Chronic pancreatitis , unspecified pancreatitis type (HCC) (Primary Dx); Generalized abdominal pain; Chronic obstructive pulmonary disease with acute lower respiratory infection (HCC); Dependence on supplemental oxygen; Hearing loss of right ear, unspecified hearing loss type Start: 05-31-2025 End: 05-31-2025 ambulatory [facility] Facility:[facility] Start: 05-24-2025 End: 05-24-2025 Dr. Misbah Elkins MD Work Phone: -Emergency Department Work Phone: Start: 05-24-2025 End: 05-24-2025 Emergency department patient visit Dr. Misbah Elkins MD Work Phone: -Emergency Department Start: 05-24-2025 End: 05-24-2025 ambulatory Anat Gutiérrez TOPSTITCHER ZIGZAG-C Work Phone: -Laboratory Specimen Start: 05-24-2025 End: 05-24-2025 Dr. Sudhir Grijalva MD -Laboratory Specimen Work Phone: Start: 05-24-2025 End: 05-24-2025 Ani Eduardo TOPSTITCHER ZIGZAG-C -[facility] Work Phone: Start: 05-24-2025 End: 05-24-[address] Misbah Elkins MD Work Phone: -[facility] Start: 05-24-2025 End: 05-24-2025 ambulatory [facility] Facility:[facility] Start: 05-19-2025 End: 05-20-2025 Follow-up encounter Misbah Elkins MD Work Phone: [facility] [place] Start: 05-18-2025 End: 05-18-2025 ambulatory [facility] Facility:[facility] Start: 05-17-2025 End: 05-19-2025 Refill Misbah Elkins MD Work Phone: [facility] [place] Comment on above: Refill Request Start: 05-16-2025 End: 05-17-2025 Refill Misbah Elkins MD Work Phone: [facility] [place] Comment on above: Refill Request Start: 05-10-2025 End: 05-10-2025 Dr. Misbah Elkins MD Work Phone: -Emergency Department Work Phone: Start: 05-10-2025 End: 05-10-2025 Emergency department patient visit Dr. Misbah Elkins MD Work Phone: -Emergency Department Start: 05-09-2025 End: 05-12-2025 ambulatory Misbah Elkins MD Work Phone: Internal Medicine [place] [id number] Start: 04-27-2025 End: 04-27-[address] Misbah Elkins MD Work Phone: -Laboratory Specimen Start: 04-27-2025 End: 04-27-2025 Gabby SILVA -Laboratory Specimen Work Phone: Start: 04-26-2025 End: 04-26-2025 Gabby SILVA -[facility] Work Phone: Start: 04-26-2025 End: 04-27-[address] Misbah Elkins MD Work Phone: -[facility] Start: 04-25-2025 End: 04-25-2025 Office outpatient [...] Start: 04-25-2025 End: 04-26-2025 ambulatory MISBAH ELKINS Facility:[facility] Start: 04-25-2025 End: 04-26-2025 Telephone encounter Misbah Elkins MD Work Phone: [facility] [place] Comment on above: Pain medication Start: 04-20-2025 End: 04-22-2025 Telephone encounter Misbah Elkins MD Work Phone: [facility] [place] Comment on above: Patient Update Start: 04-19-2025 Dr. Sudhir Izquierdo MD -[place] [facility] Work Phone: Start: 04-18-2025 Dr. Sudhir Izquierdo MD -[place] [facility] Work Phone: Start: 04-17-2025 Dr. Bert Greenwood MD [facility] Work Phone: Start: 04-16-2025 ambulatory [...] Office outpatient visit 25 minutes Nicolas Greer APRN.MANAGER AUTO Work Phone: [facility] [place] Comment on above: Hospital discharge f ollow-up (Primary Dx); Acute respiratory failure with hypoxia (HCC); Chronic recurrent pancreatitis (HCC); Norovirus; Pneumonia of both lungs due to infectious organism, unspecified part of lung; Presence of pancreatic duct stent; Alcoholic hepatitis without ascites (HCC); Alcohol use disorder, moderate, dependence (HCC) Start: 04-10-2025 End: 04-10-2025 ambulatory MISBAH ELKINS Facility:[facility] Start: 04-10-2025 End: 04-10-2025 Ani Eduardo TOPSTITCHER ZIGZAG-C -[facility] Work Phone: Start: 04-10-2025 End: 04-10-[address] Misbah Elkins MD Work Phone: -[facility] Start: 04-07-2025 End: 04-07-2025 Telephone encounter Floresita Villaseñor APRN.PROPERTY DISPOSAL OFFICER Work Phone: Gastroenterology Comment on above: Opened In Error Start: 04-04-2025 End: 04-07-2025 Telephone encounter Misbah Elkins MD Work Phone: NOC Comment on above: Transition Of Care Chronic recurrent pa ncreatitis (HCC) (Primary Dx) Transition Of Care ( Left V/m ) Appointment Start: 03-29-2025 End: 03-29-2025 Telephone encounter Juan Senior APRN.PROPERTY DISPOSAL OFFICER Work Phone: [facility] Comment on above: Patient Question Start: 03-28-2025 End: 03-28-2025 Telephone encounter Herman Nevarez RN NOC Comment on above: Transition Of Care ( RC f/u discharge LVM /) Start: 03-21-2025 End: 03-22-2025 Refill Misbah Elkins MD Work Phone: [facility] [place] Comment on above: Refill Request Start: 03-20-2025 End: 03-20-2025 Evaluation and management of inpatient NGUYEN PALACIOS Facility:[id number] Start: 03-16-2025 End: 03-16-2025 Telephone encounter Misbah Elkins MD Work Phone: [facility] [place] Comment on above: Patient Update Start: 03-16-2025 Dr. Sudhir Izquierdo MD -[place] [facility] Work Phone: Start: 03-15-2025 End: 03-23-2025 Evaluation and management of inpatient [facility]ERO Facility:[id number] Start: 03-15-2025 Dr. Sudhir Izquierdo MD -[place] [facility] Work Phone: Start: 03-15-2025 End: 03-16-2025 ambulatory Maksim Anderson APRN.PROPERTY DISPOSAL OFFICER Work Phone: Critical Care Start: 03-15-2025 Dr. Gonzalo Sebastian DO -[facility] Start: 03-14-2025 Dr. Sudhir Izquierdo MD -[place] [facility] Work Phone: Start: 03-13-2025 End: 03-15-2025 Evaluation and management of inpatient Dr. Misbah Elkins MD Work Phone: [facility] Work Phone: Start: 03-13-2025 ambulatory [facility] Facility:[facility] Start: 03-13-2025 End: 03-15-2025 Dr. Pako Fernández MD -[facility] it Work Phone: Start: 03-13-2025 End: 03-13-2025 Telephone encounter Jane Farrell MD Work Phone: Gastroenterology Comment on above: Patient Update (Symp toms after ERCP ) Start: 03-10-2025 ambulatory VANESSA Mustafa y:[facility] Start: 03-10-2025 End: 03-10-2025 Subsequent hospital visit by physician Jane Farrell MD Work Phone: Gastroenterology Comment on above: Other chronic pancre atitis (HCC) [K86.1] Start: 03-07-2025 End: 03-07-2025 Telephone encounter Juan Senior APRN.PROPERTY DISPOSAL OFFICER Work Phone: Gastroenterology Comment on above: Orders Start: 03-06-2025 End: 03-06-2025 Telephone encounter Raisa Jimenez RNreporting manager Comment on above: Patient Question Patient Question (Qu estions Prior to ERCP) Start: 03-03-2025 End: 03-03-2025 ambulatory Jaelyn Kothari RN Gastroenterology Start: 02-26-2025 End: 02-26-2025 Emergency department patient visit Dr. Misbah Elkins MD Work Phone: [facility] Work Phone: Start: 02-26-2025 End: 02-26-2025 Dr. Misbah Elkins MD Work Phone: -Emergency Department Work Phone: Start: 02-10-2025 End: 02-13-2025 Telephone encounter Juan Senior APRN.PROPERTY DISPOSAL OFFICER Work Phone: Gastroenterology Comment on above: Medical Clearance Start: 02-08-2025 End: 02-08-2025 Ani ROGERSC -[facility] Work Phone: Start: 02-08-2025 End: 02-08-[address] Misbah Elkins MD Work Phone: [facility] Work Phone: Start: 02-03-2025 End: 03-06-2025 Refill Juan Senior APRN.PROPERTY DISPOSAL OFFICER Work Phone: Gastroenterology Comment on above: Refill Request Start: 01-27-2025 End: 01-27-2025 Dr. [facility] Work [facility]: Start: 01-27-2025 End: 01-27-2025 Emergency department patient visit [facility] Facility:[facility] Start: 01-24-2025 End: 01-24-2025 Refill Misbah Elkins MD Work Phone: [facility] [place] Comment on above: Refill Request Start: 01-18-2025 ambulatory Ani Eduardo NP Fac ility:[facility] Start: 01-13-2025 End: 01-13-2025 Patient encounter procedure Soila Easton APRN.PROPERTY DISPOSAL OFFICER Work Phone: [facility] [place] Comment on above: Gout, unspecified ca use, unspecified chronicity, unspecified site (Primary Dx); Calculus of pancreatic duct (HCC); Chronic recurrent pancreatitis (HCC); Chronic obstructive pulmonary disease, unspecified COPD type (HCC); Pulmonary emphysema, unspecified emphysema type (HCC); Tobacco use disorder Start: 01-13-2025 End: 01-13-2025 ambulatory MISBAH ELKINS Facility:[facility] Start: 01-09-2025 End: 01-12-2025 Telephone encounter Raisa Jimenez RNreporting manager Comment on above: Patient Update (Pain ) Order for Pull Ups Start: 01-06-2025 End: 01-09-2025 Telephone encounter Juan Senior APRN.PROPERTY DISPOSAL OFFICER Work Phone: [facility] Comment on above: Patient Question Start: 01-05-2025 End: 01-11-2025 Telephone encounter Juan Senior APRN.PROPERTY DISPOSAL OFFICER Work Phone: Gastroenterology Comment on above: Patient Request Start: 01-03-2025 End: 01-03-2025 Refill Misbah Elkins MD Work Phone: [facility] Comment on above: Refill Request Start: 01-01-2025 End: 01-01-2025 Dr. Misbah Elkins MD Work Phone: -Emergency Department Work Phone: Start: 01-01-2025 End: 01-01-2025 Emergency department patient visit Dr. Misbah Elkins MD Work Phone: [facility] Work Phone: Start: 12-31-2024 End: 01-18-2025 ambulatory Marge Handy RN Work Phone: [facility] Comment on above: Medication Question Refill Request Start: 12-27-2024 End: 12-28-2024 Telephone encounter Juan Senior APRN.PROPERTY DISPOSAL OFFICER Work Phone: [facility] Comment on above: Patient Update Start: 12-24-2024 End: 12-24-2024 Dr. Misbah Elkins MD Work Phone: -Emergency Department Work Phone: Start: 12-24-2024 End: 12-24-2024 Emergency department patient visit Dr. Misbah Elkins MD Work Phone: [facility] Work Phone: Start: 12-23-2024 End: 12-23-2024 Telephone encounter Raisa Jimenez reporting manager Comment on above: Reminder Call (Misse d call) Start: 12-23-2024 End: 12-23-2024 Ani Eduardo TOPSTITCHER ZIGZAG-C -[facility] Work Phone: Start: 12-23-2024 End: 12-23-2024 ambulatory [facility] Start: 12-21-2024 End: 02-20-2025 Follow-up encounter Tara Youngblood APRN.PROPERTY DISPOSAL OFFICER Work Phone: [facility] Start: 12-20-2024 End: 12-20-2024 ambulatory Carroll Leblanc RN Gastroenterology Start: 12-19-2024 End: 12-19-2024 Subsequent hospital visit by physician Xr [facility] Work Phone: Radiology Comment on above: Chronic recurrent pa ncreatitis (HCC) [K86.1] Start: 12-19-2024 End: 12-19-2024 [facility] Facility:[facility] Start: 12-19-2024 End: 12-19-2024 Patient encounter procedure Tara Youngblood APRN.PROPERTY DISPOSAL OFFICER Work Phone: [facility] Comment on above: Hospital discharge f ollow-up (Primary Dx); Chronic recurrent pancreatitis (HCC); Chronic obstructive pulmonary disease, unspecified COPD type (HCC); Dysphagia, unspecified type; Essential hypertension, benign; Tobacco use disorder; Smoker Start: 12-19-2024 End: 12-22-2024 Telephone encounter Misbah Elkins MD Work Phone: [facility] [place] Comment on above: Results Start: 12-16-2024 End: 12-16-2024 Gabby SILVA -[facility] Work Phone: Start: 12-16-2024 End: 12-16-2024 ambulatory [facility] Facility:[facility] Start: 12-12-2024 Non-patient / Non-visit Dr. Emily Bonilla MD [facility] Work Phone: Start: 12-12-2024 Dr. Anastacia camargo MD [facility] Work Phone: Start: 12-12-2024 Non-patient / Non-visit Marshal Rahul ryder DO -[facility] Start: 12-12-2024 Marshal Colton DO -[facility] Start: 12-11-2024 Non-patient / Non-visit Dr. Emily Bonilla MD [facility] Work Phone: Start: 12-11-2024 Dr. Anastacia camargo [facility] Work Phone: Start: 12-10-2024 Non-patient / Non-visit Dr. Emily Bonilla MD [facility] Work Phone: Start: 12-10-2024 Dr. Anastacia camargo MD [facility] Work Phone: Start: 12-09-2024 Non-patient / Non-visit Dr. Emily Bonilla MD [facility] Work Phone: Start: 12-09-2024 Dr. Anastacia camargo [facility] Work Phone: Start: 12-09-2024 Non-patient / Non-visit Dr. Gonzalo Lopez own -[facility] Start: 12-09-2024 Dr. Gonzalo Sebastian [facility] Start: 12-08-2024 Non-patient / Non-visit Dr. Cherelle Kahn [facility] Work Phone: Start: 12-08-2024 Dr. Yrn vilchis [facility] Work Phone: Start: 12-08-2024 Non-patient / Non-visit Dr. Gonzalo Lopez own DO -[facility] Start: 12-08-2024 Dr. Gonzalo Sebastian [facility] Start: 12-07-2024 Non-patient / Non-visit Dr. Cherelle Kahn [facility] Work Phone: Start: 12-07-2024 Dr. Yrn vilchis [facility] Work Phone: Start: 12-07-2024 Non-patient / Non-visit Dr. Gonzalo samuel DO [facility] Start: 12-07-2024 Dr. Gonzalo Sebastian DO [facility] Start: 12-06-2024 Non-patient / Non-visit Dr. Cherelle Kahn [facility] Work Phone: Start: 12-06-2024 Dr. Yrn vilchis [facility] Work Phone: Start: 12-06-2024 Non-patient / Non-visit Dr. Gonzalo samuel DO [facility] Start: 12-06-2024 [facility] Start: 12-05-2024 Non-patient / Non-visit Dr. Cherelle Kahn [facility] Work Phone: Start: 12-05-2024 Dr. Yrn vilchis [facility] Work Phone: Start: 12-05-2024 ambulatory [facility] Start: 12-05-2024 End: 12-05-2024 Telephone encounter Juan Senior APRN.CNP Work Phone: Gastroenterology Start: 12-05-2024 Non-patient / Non-visit Dr. Emily Gaxiola MD [facility] Start: 12-05-2024 [facility] Start: 12-04-2024 Non-patient / Non-visit Dr. Aleta Aguayo [facility] Work Phone: Start: 12-04-2024 ambulatory [...] Start: 12-01-2024 End: 12-01-2024 ambulatory EDUARD GALEANO Facility:[facility] Start: 12-01-2024 End: 12-01-2024 Subsequent hospital visit by physician Jane Farrell MD Work Phone: Gastroenterology Comment on above: Chronic recurrent pa ncreatitis (HCC) [K86.1] Start: 11-29-2024 End: 12-02-2024 ambulatory Misbah Elkins MD Work Phone: Internal Medicine [place] [id number] Start: 11-25-2024 End: 11-25-2024 Telephone encounter Raisa Jimenez RNreporting manager Comment on above: Medication Problem ( Medication for EGD) Start: 11-24-2024 End: 11-24-2024 Patient encounter procedure Ani Eduardo TOPSTITCHER ZIGZAG-C -Pulmonary Services/Neurology Work Phone: Start: 11-24-2024 End: 11-24-2024 Ani Eduardo TOPSTITCHER [facility] -Pulmonary Services/Neurology Work Phone: Start: 11-24-2024 End: 11-24-2024 ambulatory Carroll Leblanc RN Gastroenterology Start: 11-24-2024 End: 11-24-2024 ambulatory Ani Eduardo NP Facility:[facility] Start: 11-21-2024 End: 11-21-2024 Refill Misbah Elkins MD Work Phone: Internal [facility] Comment on above: Refill Request Start: 11-08-2024 End: 11-09-2024 Follow-up encounter Misbah Elkins MD Work Phone: Internal [facility] Start: 11-08-2024 End: 11-09-2024 Telephone encounter Misbah Elkins MD Work Phone: Internal Medicine [place] Comment on above: Medication Problem Start: 11-07-2024 End: 11-07-2024 Subsequent hospital visit by physician Xr [facility] [place] Work Phone: Radiology Comment on above: COPD with exacerbati on (HCC) [J44.1] Start: 11-07-2024 End: 11-07-2024 ambulatory [facility] Facility:[facility] Start: 11-07-2024 End: 11-07-2024 Office outpatient visit 25 minutes Misbah Elkins MD Work Phone: Internal Medicine [place] Comment on above: Cough with sputum (P rimary Dx); Essential hypertension; COPD with exacerbation (HCC) Start: 11-02-2024 End: 11-02-2024 Office outpatient new 30 minutes Juan Senior APRN.CNP Work Phone: Gastroenterology Comment on above: 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); Chronic recurrent pancreatitis (HCC); Chronic RUQ pain; Abdominal bloating; Nausea; Gastroesophageal reflux disease without esophagitis Start: 11-02-2024 End: 11-02-2024 [facility] Facility:[facility] Start: 10-28-2024 End: 10-28-2024 Refill Misbah Elkins MD Work Phone: Internal Medicine [place] Comment on above: Refill Request Start: 08-23-2024 End: 08-23-2024 ambulatory [facility] Facility:[facility] Start: 08-23-2024 End: 08-23-2024 Subsequent hospital visit by physician Kathleen [facility] ([facility]) Work Phone: Cat Scan Comment on above: Alcoholic hepatitis without ascites [K70.10] Start: 08-19-2024 End: 08-19-2024 Telephone encounter Misbah Elkins MD Work Phone: Internal Medicine [place] Comment on above: medication issue Start: 08-16-2024 End: 08-17-2024 Refill Misbah Elkins MD Work Phone: Family Medicine [place] Comment on above: Refill Request Start: 08-15-2024 End: 08-15-2024 [facility] Facility:[facility] Start: 08-15-2024 End: 08-15-2024 Patient encounter procedure Soila Eatson APRN.PROPERTY DISPOSAL OFFICER Work Phone: Internal Medicine [place] Comment on above: Chronic obstructive pulmonary disease, unspecified COPD type (HCC) (Primary Dx); Generalized abdominal tenderness without rebound tenderness; Upper abdominal pain; Elevated lipase; Nausea; Alcoholic hepatitis without ascites; Alcohol use disorder, moderate, dependence (HCC); Acute pancreatitis, unspecified complication status, unspecified pancreatitis type Start: 08-12-2024 End: 08-12-2024 [facility] Facility:[facility] Start: 08-11-2024 End: 08-11-2024 Telephone encounter Misbah Elkins MD Work Phone: Internal Medicine [place] Comment on above: Results Start: 08-10-2024 End: 08-10-2024 Subsequent hospital visit by physician Xr [facility] Work Phone: Radiology Comment on above: Shortness of breath [R06.02] Start: 08-10-2024 End: 08-10-2024 Patient encounter procedure Soila Easton APRN.PROPERTY DISPOSAL OFFICER Work Phone: Internal Medicine [place] Comment on above: Shortness of breath (Primary Dx); Chronic obstructive pulmonary disease with acute exacerbation (HCC); Upper abdominal pain; Nausea; Urinary incontinence, unspecified type; Urinary frequency; Elevated glucose; Tobacco use disorder; Pulmonary emphysema, unspecified emphysema type (HCC) Start: 08-10-2024 End: 08-10-2024 [facility] Facility:[facility] Start: 08-10-2024 End: 08-10-2024 Telephone encounter Misbah Elkins MD Work Phone: Internal Medicine [place] Comment on above: Results; Urinary Pro blem Start: 08-05-2024 End: 08-05-2024 [facility] Facility:[facility] Start: 08-05-2024 End: 08-05-2024 Office outpatient visit 25 minutes Misbah Elkins MD Work Phone: Internal Medicine [place] Comment on above: Anxiety (Primary Dx) ; Alcohol-induced chronic pancreatitis (HCC); Nausea; Encounter for immunization; Insomnia, unspecified type; Leukocytosis, unspecified type Start: 08-05-2024 End: 08-05-2024 ambulatory MISBAH ELKINS Facility:[facility] Start: 07-08-2024 End: 07-08-2024 Refill Misbah Elkins MD Work Phone: Internal Medicine [place] Comment on above: Refill Request Start: 06-21-2024 End: 06-21-2024 Telephone encounter Misbah Elkins MD Work Phone: Internal Medicine [place] Comment on above: No Show Start: 06-15-2024 End: 06-16-2024 Refill Misbah Elkins MD Work Phone: Internal Medicine [place] Comment on above: Refill Request Start: 05-18-2024 End: 05-18-2024 Office outpatient visit 25 minutes Misbah Elkins MD Work Phone: Internal Medicine [place] Comment on above: Anxiety (Primary Dx) ; Alcohol-induced chronic pancreatitis (HCC); Chronic obstructive pulmonary disease, unspecified COPD type (HCC); Essential hypertension Start: 05-13-2024 End: 05-16-2024 Refill Misbah Elkins MD Work Phone: Internal Medicine [place] Comment on above: Refill Request Start: 05-04-2024 ambulatory Misbah Nixon Work Phone: Internal Medicine [place] Start: 04-15-2024 Refill Misbah Nixon Work Phone: Internal Medicine [place] Comment on above: Refill Request Start: 03-23-2024 Refill Misbah Nixon Work Phone: Internal Medicine [place] Comment on above: Refill Request; Open ed In Error Start: 03-18-2024 Refill Misbah Nixon Work Phone: Internal Medicine [place] Comment on above: Refill Request Start: 03-14-2024 Refill Misbah Nixon Work Phone: [facility] [place] Comment on above: Refill Request Start: 02-26-2024 Refill Misbah Nixon Work Phone: Internal Medicine [place] Comment on above: Refill Request Start: 02-19-2024 Refill Misbah Nixon Work Phone: Internal Medicine [place] Comment on above: Refill Request Start: 02-04-2024 Telephone encounter Misbah michelle MD Work Phone: Internal Medicine [place] Comment on above: Patient Update Start: 01-27-2024 Telephone encounter Tara nayak SENIOR ERP CONSULTANT.PROPERTY DISPOSAL OFFICER Work Phone: [facility] [place] Comment on above: Results Start: 01-25-2024 End: 01-25-2024 Subsequent hospital visit by physician Aki [facility] [place] Work Phone: Radiology Comment on above: Pneumonia due to inf ectious organism, unspecified laterality, unspecified part of lung [J18.9] Start: 01-25-2024 End: 01-25-2024 Patient encounter procedure Tara Youngblood SENIOR ERP CONSULTANT.PROPERTY DISPOSAL OFFICER Work Phone: [facility] [place] Comment on above: Pneumonia due to inf ectious organism, unspecified laterality, unspecified part of lung (Primary Dx); Acute right ankle pain Start: 01-22-2024 Refill Misbah Nixon Work Phone: Internal Medicine [place] Comment on above: Refill Request Start: 01-19-2024 End: 01-20-2024 Emergency department patient visit Dr. Víctor Huerta Work Phone: [facility]-Emergency Department Work Phone: Start: 01-18-2024 Refill Misbah Nixon Work Phone: Internal Medicine [place] Comment on above: Refill Request Start: 01-12-2024 Telephone encounter Anat ventura SENIOR ERP CONSULTANT.PROPERTY DISPOSAL OFFICER Work Phone: Internal Medicine [place] Comment on above: Medication Question Start: 01-12-2024 End: 01-12-2024 Patient encounter procedure Anat Mike Brock SENIOR ERP CONSULTANT.PROPERTY DISPOSAL OFFICER Work Phone: Internal Medicine [place] Comment on [...] Non-patient / Non-visit Dr. Cary Work Phone: [facility] Work Phone: Start: 01-04-2024 Non-patient / Non-visit Dr. Cary Work Phone: [facility] Work Phone: Start: 01-03-2024 Non-patient / Non-visit Dr. Cary Work Phone: [facility] Work Phone: Start: 01-02-2024 End: 01-05-2024 [facility]: Start: 12-16-2023 End: 12-16-2023 Patient encounter procedure Candie Talley PA-C Work Phone: Internal Medicine [place] Comment on above: Tachycardia (Primary Dx); Alcohol-induced chronic pancreatitis (HCC); Hyperlipidemia, unspecified hyperlipidemia type; Insomnia, unspecified type; Vitamin D deficiency; Chronic obstructive pulmonary disease, unspecified COPD type (HCC); Prediabetes Start: 11-02-2023 Refill Pako Palumbo Work Phone: Hematology/Oncology Comment on above: Refill Request Start: 07-09-2023 Telephone encounter Candie Lee PA-C Work Phone: Internal Medicine [place] Comment on above: Patient Question Start: 07-08-2023 End: 07-08-2023 Emergency department patient visit TOPSTITCHER [facility]-C SOILA EASTON Work Phone: [facility]-Emergency Department Work Phone: Start: 06-30-2023 End: 06-30-2023 Patient encounter procedure TOPSTITCHER ZIGZAG-Nichole EASTON Work Phone: [facility] Work Phone: Start: 06-12-2023 Refill Misbah Nixon Work Phone: Internal Medicine [place] Comment on above: Refill Request Start: 06-10-2023 Refill Soila Easton APRN, .CNP Work Phone: Internal Medicine [place] Comment on above: Refill Request Start: 06-03-2023 ambulatory Misbah Nixon Work Phone: Internal Medicine [facility] Start: 06-02-2023 End: 06-02-2023 Emergency department patient visit [facility] Work Phone: Start: 06-02-2023 End: 06-02-2023 Patient encounter procedure [facility] Work Phone: Start: 05-18-2023 Refill Misbah Nixon Work Phone: Internal Medicine [place] Comment on above: Refill Request Start: 05-05-2023 ambulatory Yrn Ortega Facility:[id number] Start: 04-15-2023 End: 04-15-2023 Patient encounter procedure Candie Talley PA-C Work Phone: Internal Medicine [place] Comment on above: Arthralgia of right temporomandibular joint (Primary Dx); Insomnia, unspecified type; Nausea; Alcohol use disorder, moderate, dependence (HCC) Start: 03-24-2023 Refill Misbah Nixon Work Phone: Internal Medicine [place] Comment on above: Refill Request Start: 03-10-2023 ambulatory Misbah Nixon Work Phone: Internal Medicine [place] Start: 03-09-2023 ambulatory Yrn Ortega Facility:[id number] Start: 01-28-2023 ambulatory Yrn Ortega Facility:[id number] Start: 12-31-2022 Telephone encounter Misbah michelle MD Work Phone: Family Medicine [place] Comment on above: Medication Request Start: 12-22-2022 Patient encounter procedure Soila Easton Work Phone: [facility] Work Phone: Start: 12-22-2022 ambulatory Yrn Ortega Facility:[id number] Start: 12-03-2022 ambulatory Yrn Ortega Facility:[id number] Start: 11-28-2022 End: 11-28-2022 Patient encounter procedure Soila Easton SENIOR ERP CONSULTANT.PROPERTY DISPOSAL OFFICER Work Phone: Internal Medicine [place] Comment on above: Prediabetes (Primary Dx) Start: 11-27-2022 Telephone encounter Misbah michelle MD Work Phone: Internal Medicine [place] Comment on above: Erroneous encounter- disregard Results [...] 11-25-2022 Subsequent hospital visit by physician Xr [facility] Work Phone: Radiology Comment on [...] Misbah michelle MD Work Phone: Family Medicine [place] Comment on above: Results Start: 11-11-2022 End: 11-11-2022 Subsequent hospital visit by physician Xr [facility] [place] Work Phone: Radiology Comment on above: Chronic obstructive pulmonary disease, unspecified COPD type (HCC) [J44.9] Start: 11-11-2022 End: 11-11-2022 Patient encounter procedure Misbah Elkins MD Work Phone: Internal Medicine [place] Comment on above: CHUY (acute kidney in jury) (HCC) (Primary Dx); Chronic obstructive pulmonary disease, unspecified COPD type (HCC); Alcohol use disorder, moderate, dependence (HCC); Essential hypertension, benign; Hyperlipidemia, unspecified hyperlipidemia type; Tobacco use disorder; Reactive depression; Moderate episode of recurrent major depressive disorder (HCC); Alcohol-induced chronic pancreatitis (HCC) Start: 11-07-2022 Non-patient / Non-visit [facility]STITCHER [facility]-C J OY OLDER Work Phone: [facility] In[facility] Phys[facility] Start: 11-06-2022 Non-patient / Non-visit [facility]STITCHER [facility]IGZAG-C J OY OLDER Work Phone: [facility] Start: 11-06-2022 Non-patient / Non-visit TOPSTITCHER ZIGZAG-C J OY OLDER Work Phone: [facility] Start: 11-05-2022 Non-patient / Non-visit TOPSTITCHER ZIGZAG-C J OY OLDER Work Phone: [facility] Start: 11-05-2022 Non-patient / Non-visit TOPSTITCHER ZIGZAG-C J OY OLDER Work Phone: [facility] Start: 11-05-2022 Non-patient / Non-visit [facility]STITCHER [facility]IGZAG-C J OY OLDER [facility] Start: 11-04-2022 Non-patient / Non-visit TOPSTITCHER ZIGZAG-C J OY OLDER Work Phone: [facility] Start: 11-04-2022 Non-patient / Non-visit TOPSTITCHER ZIGZAG-C J OY OLDER Work Phone: [facility] Start: 11-03-2022 Non-patient / Non-visit TOPSTITCHER ZIGZAG-C J OY OLDER Work Phone: [facility] Start: 11-03-2022 Non-patient / Non-visit TOPSTITCHER ZIGZAG-C J OY OLDER Work Phone: [facility] Start: 11-02-2022 End: 11-02-2022 Non-patient / Non-visit TOPSTITCHER ZIGZAG-C SOILA OLDER Work Phone: [facility] Start: 11-02-2022 Non-patient / Non-visit TOPSTITCHER [facility]IGZAG-C J OY OLDER Work Phone: [facility] Start: 11-01-2022 Non-patient / Non-visit TOPSTITCHER [facility]-C J OY OLDER Work Phone: [facility] Start: 11-01-2022 End: 11-07-2022 Evaluation and management of inpatient TOPSTITCHER ZIGZAG-C SOILA OLDER Work Phone: [facility]-Progressive Care Unit Start: 11-01-2022 Chart Update Soila Easton Work Phone: [facility] Work Phone: Start: 10-31-2022 End: 10-31-2022 Patient encounter procedure Misbah Elkins MD Work Phone: Internal Medicine [place] Comment on above: Cellulitis of right orbital region (Primary Dx); CHUY (acute kidney injury) (HCC); Uncontrolled hypertension; Tobacco abuse, in remission; Lung mass Start: 10-24-2022 End: 10-29-2022 Evaluation and management of inpatient Varija Yalamanchali [facility] R[facility] 2026 09 Start: 10-23-2022 Telephone encounter Jaime rodriguez MD Work Phone: [facility] Ophthalmology (Eye) Residents Comment on above: Speak to Provider Start: 10-22-2022 End: 10-22-2022 ambulatory UNKNOWN PROVIDER Facility:[facility] Start: 10-21-2022 ambulatory UNKNOWN PROVIDER Facili ty:[facility] Start: 10-21-2022 Evaluation and manag ement of inpatient [facility] Facility:[facility] Start: 10-20-2022 End: 10-24-2022 Evaluation and management of inpatient [facility] Facility:[facility] Start: 10-20-2022 Telephone encounter Jeffy price MD Work Phone: [facility] Medicine Start: 10-20-2022 End: 10-20-2022 ambulatory UNKNOWN PROVIDER Facility:[facility] Start: 10-20-2022 Emergency department patient visit UNKNOWN PROVIDER Facility:[facility] Start: 10-20-2022 End: 10-20-2022 Office outpatient visit 25 minutes Jeffery Jin MD Work Phone: [facility] Ophthalmology (Eye) Residents Comment on above: Inflammation of orbi kristopher region (Primary Dx) Start: 10-19-2022 End: 10-20-2022 Emergency department patient visit [facility]STITCHER [facility]IGZ[facility]-C SOILA EASTON [facility] Start: 09-05-2022 End: 09-05-2022 Patient encounter procedure TOPSTITCHER ZIGZAG-C SOILA EASTON [facility] Start: 08-27-2022 End: 08-27-2022 Patient encounter procedure Soila Easton SENIOR ERP CONSULTANT.PROPERTY DISPOSAL OFFICER Work Phone: Internal Medicine [place] Comment on above: Chronic obstructive pulmonary disease, unspecified COPD type (HCC) (Primary Dx) Start: 08-22-2022 End: 08-22-2022 Emergency department patient visit TOPSTITCHER ZIGZAG-C SOILA EASTON Work Phone: [facility]-Emergency Department Start: 07-18-2022 End: 07-18-2022 Patient encounter procedure Soila Easton SENIOR ERP CONSULTANT.PROPERTY DISPOSAL OFFICER Work Phone: Internal Medicine [place] Comment on above: Essential hypertensi on, benign (Primary Dx); Multiple joint pain; Alcohol-induced chronic pancreatitis (HCC); Chronic obstructive pulmonary disease, unspecified COPD type (HCC); Right otitis media, unspecified otitis media type; Need for influenza vaccination Start: 06-25-2022 ambulatory Misbah Nixon Work Phone: Internal Medicine [place] Start: 06-25-2022 Telephone encounter Inge doshi APRN.CNP Work Phone: OB/Gynecology Comment on above: Vaginal Problem Start: 06-13-2022 Refill Misbah Nixon Work Phone: Internal Medicine [place] Comment on above: Refill Request Start: 05-28-2022 End: 05-28-2022 ambulatory [facility] Work Phone: Start: 05-28-2022 End: 05-28-2022 Patient encounter procedure [facility]-Cat Scan, [facility] Start: 05-27-2022 End: 05-27-2022 Patient encounter procedure Claudia Odonnell MD Work Phone: Gastroenterology [place] Comment on above: Alcohol-induced chronic specialist luis pancreatitis (HCC); Alcoholic hepatitis without ascites Start: 05-22-2022 Refill Misbah Nixon Work Phone: Internal [facility] Comment on above: Refill Request Start: 05-16-2022 Refill Soila Easton APRN, .CNP Work Phone: Internal Medicine [place] Comment on above: Refill Request Start: 05-02-2022 End: 05-02-2022 Subsequent hospital visit by physician [facility] Work Phone: Radiology Comment on above: Alcohol-induced chronic specialist luis pancreatitis (HCC) [K86.0] Start: 04-18-2022 Refill Soila Easton APRN, .CNP Work Phone: Internal Medicine [place] Comment on above: Refill Request Start: 04-18-2022 Telephone encounter Soila Easton APRN.CNP Work Phone: Family [facility] Comment on above: Opened In Error Start: 04-17-2022 Telephone encounter Soila Easton APRN.CNP Work Phone: [facility] Comment on above: Medication Question Start: 04-17-2022 End: 04-17-2022 Patient encounter procedure Soila Easton APRN.CNP Work Phone: [facility] Comment on above: Essential hypertensi on, benign (Primary Dx); Hyperlipidemia, unspecified hyperlipidemia type; Chronic fatigue; Alcoholic hepatitis without ascites; Alcohol-induced chronic pancreatitis (HCC); Iron deficiency; Vitamin D deficiency; MICKEY (generalized anxiety disorder); Reactive depression Start: 03-21-2022 Refill Misbah Nixon Work Phone: [facility] Comment on above: Refill Request Start: 03-21-2022 Refill Soila Easton APRN, .CNP Work Phone: [facility] Comment on above: Refill Request Start: 03-11-2022 Telephone encounter Inge doshi APRN.CNP Work Phone: OB/Gynecology Comment on above: Vaginal Problem Start: 03-03-2022 End: 03-03-2022 Emergency department patient visit TOPSTITCHER ZIGZAG-Nichole Teague NP Work Phone: [facility]-Emergency Department Start: 02-21-2022 Refill Soila Easton APRN, .CNP Work Phone: [facility] Comment on above: Refill Request Start: 02-11-2022 ambulatory Misbah Nixon Work Phone: [facility] [place] Start: 01-16-2022 End: 01-16-2022 Patient encounter procedure CARMEN Teague NP [facility] Start: 12-27-2021 Refill Víctor Mcpherson APRN.CNP, DNP Work Phone: [facility] Comment on above: Refill Request Start: 06-11-2017 End: 06-12-2017 Ambulatory CHING MARI Facility:[facility] Procedures Date Procedure Procedure Detail Performing Clinician Start: 07-10-2025 Urine microscopy: red cells Dr. Misbah swann MD Work Phone: Start: 07-10-2025 Urnls dip stick/tablet reagent auto microscopy Dr. Misbah Elkins MD Work Phone: Start: 07-10-[address] Tayla Elkins MD Work Phone: Start: 07-10-2025 Mean corpuscular hemoglobin concentration determination Dr. Misbah Elknis MD Work Phone: Start: 07-10-2025 Neutrophil count [...] Work Phone: Start: 05-24-2025 Procedure Anat Gutiérrez [facility]STITCHER [facility]-C Work Phone: Start: 05-24-[address] Misbah Elkins MD Work Phone: Start: 05-24-[address] Misbah valdes MD Work Phone: Start: 05-24-2025 Lipid 1996 panel - Serum or Plasma Soila Easton APRN.PROPERTY DISPOSAL OFFICER Work Phone: Start: 05-10-2025 Computed tomography of [...] Esophagoscp rig transoral hypopharynx crv breanne Senior SENIOR ERP CONSULTANT.PROPERTY DISPOSAL OFFICER Work Phone: Start: 11-07-2024 Radiologic exam chest 2 views Misbah michelle MD Work Phone: Start: 08-10-2024 Urnls dip stick/tablet rgnt auto w/o microscopy Soila Easton SENIOR ERP CONSULTANT.PROPERTY DISPOSAL OFFICER Work Phone: Start: 01-25-2024 Radiologic exam chest 2 views Tara Long son SENIOR ERP CONSULTANT.PROPERTY DISPOSAL OFFICER Work Phone: Start: 01-19-2024 X-ray of both feet Dr. Víctor Huerta Work Phone: Start: 01-11-2024 Lipid 1996 panel - Serum or Plasma Anat Gutiérrez SENIOR ERP CONSULTANT.PROPERTY DISPOSAL OFFICER Work Phone: Start: 01-04-2024 Investigation of transfusion reaction Dr. Víctor Huerta Work Phone: Start: 01-04-[address] Víctor Huerta Work Phone: Start: 01-02-2024 CT angiography of chest with contrast Start: 01-02-2024 Plain chest X-ray Start: 01-02-2024 Bacteria identified in Blood by Culture Dr. Víctor Huerta Work Phone: Start: 01-02-2024 SARS-CoV-2, Influenza & RSV (PCR) Start: 07-08-2023 Plain chest X-ray TOPSTITCHER ZIGZAG-C SOILA Work Phone: Start: 07-08-2023 SARS-CoV-2 & FLU Antigen (Rapid) TOPSTITCHER ZIGZAG-C CATHRYN Borges Work Phone: Start: 06-02-2023 Plain chest X-ray Start: 06-02-2023 CT of chest TOPSTITCHER ZIGZAG-C SOILA Work Phone: Start: 06-02-2023 SARS-CoV-2 & FLU Antigen (Rapid) Start: 11-25-2022 Radex spine lumbosacral 2/3 views Misbah Elkins MD Work Phone: Start: 11-11-2022 Radiologic exam chest 2 views Misbah michelle MD Work Phone: Start: 11-04-2022 Plain chest X-ray TOPSTITCHER ZIGZAG-C SOILA Work Phone: Start: 11-04-2022 CT of chest, abdomen and pelvis without contrast TOPSTITCHER ZIGZAG-C SOILA Work Phone: Start: 11-02-2022 Plain chest X-ray TOPSTITCHER ZIGZAG-C SOILA Work Phone: Start: 10-24-2022 Renal function 2000 panel - Serum or Plasma Demarco Moya Start: 10-22-2022 End: 10-22-2022 [facility] medical xm&eval intermediate estab pt Inflammation of orbital region Jaime Aggarwal MD Work Phone: Comment on above: Inflammation of orbital region (Primary Dx) Start: 10-21-2022 End: 10-21-2022 [facility] xm&eval intermediate estab pt Orbital inflammation [employer] 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 Comment on above: Orbital inflammation (Primary Dx) Start: 10-19-2022 CT of head with contrast TOPSTITCHER ZIGZAG-C SOILA EASTON Work Phone: Start: 08-22-2022 CT angiography of chest with contrast TOPSTITCHER ZIGZAG-C SOILA Work Phone: Start: 08-22-2022 Plain chest X-ray [employer]STITCHER ZIGZAG-C SOILA Work Phone: Start: 07-18-2022 INFLUENZA VACCINE QUADRIVALENT 6 MO - 64 YRS IM Soila Rustam SENIOR ERP CONSULTANT.PROPERTY DISPOSAL OFFICER Work Phone: Start: 05-28-2022 CT of chest Start: 05-02-2022 Us abdominal real time w/image limited Soila Easton SENIOR ERP CONSULTANT.PROPERTY DISPOSAL OFFICER Work Phone: Start: 04-17-2022 Lipid 1996 panel - Serum or Plasma Soila Rustam SENIOR ERP CONSULTANT.PROPERTY DISPOSAL OFFICER Work Phone: Start: 03-03-2022 SARS-CoV-2 & FLU Antigen (Rapid) TOPSTITCHER ZIGZAG-C Onesimo Teague TOPSTITCHER ZIGZAG Work Phone: Start: 03-03-2022 Plain chest X-ray TOPSTITCHER ZIGZAG-C Theron Teague TOPSTITCHER ZIGZAG Work Phone: Start: 01-10-2021 Colonoscopy Víctor Mcpherson SENIOR ERP CONSULTANT.[facility], DNP Work Phone: Start: 08-28-2020 Mammography Víctor Mcpherson SENIOR ERP CONSULTANT.[facility], DNP Work Phone: Appendectomy Soila Valdes Work Phone: Bacteria identified in Blood by Culture [employer] SOILA Work Phone: Bacteria identified in Blood by Culture [employer] SOILA Work Phone: Cholecystectomy Soila Valdes Work Phone: Enteric Bacteriology [employer]C CATHRYN Micaela Work Phone: H/O: surgery Gabby SILVA H/O: surgery Marshal Friend DO H/O: tubal ligation History of t ubal ligation [employer]C Theron Teague TOPSTITCHER [employer] Work Phone: History of appendectomy History of appendectomy [employer]-C Theron Teague [employer]ST[employer]ER [employer] Work Phone: Respiratory Panel (PCR) [employer]-Nichole EASTON Work Phone: Respiratory syncytia l virus antigen assay [employer]-Nichole EASTON Work Phone: SARS-CoV-2 & FLU Antigen (Rapid) SARS-CoV-2 & FLU Antigen (Rapid) [employer]-Nichole EASTON Work Phone: SARS-CoV-2 & FLU Antigen (Rapid) [employer]C SOILA EASTON Work Phone: SARS-CoV-2 & FLU Antigen (Rapid) [employer]-Nichole EASTON Work Phone: Urine culture [employer]ST[employer]-Nichole EASTON Work Phone: Plan of Treatment Date Care Activity Detail Author Start: 08-12-2030 Tetanus vaccination Tetanus (Td or Tdap) Booster [facility] Start: 05-24-2030 Lipid panel Lipid Screening [facility] Start: 01-10-2029 Lipid panel Lipid Screening [facility] Start: 2028 PNEUMOCOCCAL (3 - PPSV23 if available, else PCV20) PNEUMOCOCCAL (3 - PPSV23 if available, else PCV20) [facility] Start: 2028 PNEUMOCOCCAL (3 - PPSV23 or PCV20) PNEUMOCOCCAL (3 - PPSV23 or PCV20) [facility] Start: 2028 Pneumococcal vaccination [facility] Start: 03-23-2028 Diabetes Screening Diabetes Screening [facility] Start: 03-22-2028 Diabetes Screening Diabetes Screening [facility] Start: 03-16-2028 Diabetes Screening Diabetes Screening [facility] Start: 12-20-2027 Diabetes Screening Diabetes Screening [facility] Start: 08-12-2027 Diabetes Screening Diabetes Screening [facility] Start: 04-17-2027 Cholesterol [Mass/volume] in Serum or Plasma Cholesterol [facility] Start: 04-17-2027 Lipid 1996 panel - Serum or Plasma Lipid Screening [facility] Start: 04-17-2027 Lipid panel Lipid Screening [facility] Start: 07-21-2027 LIPID SCREEN LIPID SCREEN [facility] Start: 01-10-2027 Diabetes Screening Diabetes Screening [facility] Start: 07-19-2026 LIPID SCREEN LIPID SCREEN [facility] Start: 05-31-2026 Annual PCP Team Chronic Disease Visit Annual PCP Team Chronic Disease Visit [facility] Start: 04-25-2026 Annual PCP Team Chronic Disease Visit Annual PCP Team Chronic Disease Visit [facility] Start: 04-10-2026 Annual PCP Team Chronic Disease Visit Annual PCP Team Chronic Disease Visit [facility] Start: 02-19-2026 DIABETES SCREEN DIABETES SCREEN [facility] Start: 02-19-2026 Diabetes Screening Diabetes Screening [facility] Start: 01-13-2026 Annual PCP Team Chronic Disease Visit Annual PCP Team Chronic Disease Visit [facility] Start: 01-13-2026 BP Controlled (<130/80) BP Controlled (<130/80) [facility] in Start: 01-13-2026 zzBP Controlled (<130/80) (Retired) zzBP Controlled (<130/80) (Retired) [facility] Start: 12-19-2025 Annual PCP Team Chronic Disease Visit Annual PCP Team Chronic Disease Visit [facility] Start: 12-19-2025 BP Controlled (<130/80) BP Controlled (<130/80) [facility] in Start: 11-26-2025 DIABETES SCREEN DIABETES SCREEN [facility] Start: 11-11-2025 DIABETES SCREEN DIABETES SCREEN [facility] Start: 11-07-2025 Annual PCP Team Chronic Disease Visit Annual PCP Team Chronic Disease Visit [facility] Start: 11-07-2025 BP Controlled (<130/80) BP Controlled (<130/80) [facility] in Start: 10-20-2025 DIABETES SCREEN DIABETES SCREEN [facility] Start: 08-30-2025 End: 08-30-2025 Patient encounter procedure 08/30/2025 11:00 AM EST Office Visit [facility] [place] [address] [facility] [place] [id number] Soila Easton APRN.IGOR [address] [facility] [place] [address] 3 month follow up [facility] [place] Comment on above: 3 month follow up Start: 08-15-2025 Annual PCP Team Chronic Disease Visit Annual PCP Team Chronic Disease Visit [facility] Start: 08-15-2025 BP Controlled (<130/80) BP Controlled (<130/80) [facility] Start: 08-10-2025 Annual PCP Team Chronic Disease Visit Annual PCP Team Chronic Disease Visit [facility] Start: 08-05-2025 Annual PCP Team Chronic Disease Visit Annual PCP Team Chronic Disease Visit [facility] Start: 08-05-2025 BP Controlled (<130/80) BP Controlled (<130/80) [facility] Start: 07-10-2025 [facility] Start: 07-10-2025 End: 07-10-2025 Patient encounter procedure 07/10/2025 11:00 AM EDT Appointment Gastroenterology [address] [address] Jane Farrell MD [address] [address] Chronic recurrent pancreatitis (HCC) [K86.1]4month f/u Gastroenterology Comment on above: Chronic recurrent pancreatitis (HCC) [K8 6.1]4month f/u Start: 07-10-2025 Ct abdomen & pelvis w/contrast material [facility] Start: 07-10-2025 End: 07-10-2025 -Emergency Departmen t Work Phone: Start: 07-07-2025 [facility] Start: 07-06-2025 Patient discharge [facility] Start: 06-20-2025 End: 06-20-2025 Patient encounter procedure 06/20/2025 2:00 PM EDT Office Visit Vascular Surgery [address] [place] [address] Desire Lennon, DO [address] [place] [address] x: Subclavian artery stenosis, left [I77.1] Vascular Surgery Comment on above: x: Subclavian artery stenosis, left [I77 .1] Start: 05-29-2025 Influenza vaccination Influenza Vaccine (#1) [facility] Start: 05-26-2025 End: 05-26-2025 Patient encounter procedure 05/26/2025 11:00 AM EDT Office Visit Internal Medicine [place] [address] [place] [address] Soila Easton APRN.PROPERTY DISPOSAL OFFICER [address] [place] [address] 1 mth fu [facility] [place] Comment on above: 1 mth fu Start: 05-24-2025 [facility] Start: 05-24-2025 Procedure [facility] Start: 05-24-2025 Drug tst prsmv instrmnt chem analyzers pr date [facility] Start: 05-24-2025 Qualitative measurement of opiate agonist [facility] Start: 05-18-2025 Annual PCP Team Chronic Disease Visit Annual PCP Team Chronic Disease Visit [facility] Start: 05-18-2025 BP Controlled (<130/80) BP Controlled (<130/80) [facility] Start: 05-18-2025 End: 05-18-2025 Patient encounter procedure [facility] Comment on above: Stenosis of left carotid artery [I65.22] Subclavian arterial stenosis [I77.1] Start: 05-12-2025 End: 05-12-2025 Patient encounter procedure [facility] Comment on above: Stenosis of left carotid artery [I65.22] Subclavian arterial stenosis [I77.1] Start: 05-10-2025 [facility] Start: 05-09-2025 End: 08-07-2025 Lipid 1996 panel - Serum or Plasma LIPID PANEL, FASTING Lab Routine Hyperlipidemia Expected: 05/09/2025, Expires: 08/07/2025 [facility] Work Phone: Comment on above: Expected: 05/09/2025, Expires: Start: 04-27-2025 End: 04-27-2025 [facility] Start: 04-25-2025 End: 04-25-2025 Patient encounter procedure 04/25/2025 3:40 PM EDT Office Visit Internal Medicine [place] [address] [place] [address] Misbah Elkins MD [address] [place] [address] [facility] Hypertensive Urgency [facility] [place] Comment on above: [facility] [employer] Start: 04-25-2025 End: 04-25-2025 ambulatory 04/25/2025 10:00 AM EDT [facility] Neurology Pain [address] [place] [address] Milly Saleh APRN.PROPERTY DISPOSAL OFFICER, DNP [address] [place] [address] Chronic recurrent pancreatitis (HCC) [K86.1]; 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]; Chronic RUQ pain [R10.11, G89.29] Neurology Pain Comment on above: Chronic recurrent pancreatitis (HCC) [K8 6.1]; 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]; Chronic RUQ pain [R10.11, G89.29] Start: 04-19-2025 Patient discharge [facility] Start: 04-18-2025 End: 04-18-2025 Patient encounter procedure 04/18/2025 2:30 PM EDT Office Visit Gastroenterology [address] [address] Juan Senior APRN.PROPERTY DISPOSAL OFFICER [address] [place] [address] Follow up ERCP Gastroenterology Comment on above: Follow up ERCP Start: 04-18-2025 Care planning and problem solving actions [facility] Start: 04-17-2025 DIABETES SCREEN DIABETES SCREEN [facility] Start: 04-17-2025 End: 04-17-2025 Patient encounter procedure 04/17/2025 1:00 PM EDT Office Visit Internal Medicine [place] [address] [place] [address] Soila Easton APRN.PROPERTY DISPOSAL OFFICER [address] [place], [place] [address] 3 month follow up [facility] [place] Comment on above: 3 month follow up Start: 04-16-2025 Application of intermittent pneumatic compression device [facility] Start: 04-16-2025 Following clinical pathway protocol [facility] Start: 04-16-2025 Aspiration precautions [facility] Start: 04-16-2025 Assessment of risk of venous thromboembolism [facility] Start: 04-16-2025 Insertion of catheter into peripheral vein [facility] Start: 04-16-2025 Measuring intake and output [facility] Start: 04-16-2025 Oxygen therapy [facility] Start: 04-16-2025 Providing care according to standard [facility] Start: 04-16-2025 Provision of activity privileges [facility] Start: 04-16-2025 Referral for physical therapy [facility] Start: 04-16-2025 Referral to service [facility] Start: 04-16-2025 [facility] Start: 04-16-2025 Verification routine [facility] Start: 04-16-2025 Admission procedure [facility] Start: 04-16-2025 Hospital admission, emergency, from emergency room, medical nature [facility] Start: 04-16-2025 Inhalation therapy procedure [facility] Start: 04-12-2025 End: 04-12-2025 Patient encounter procedure 04/12/2025 11:00 AM EDT Office Visit Pulmonary Medicine [address] [place] [address] Madeline Sebastian MD [address] [place] [address] hosp follow up [facility] Pulmonary Medicine Comment on above: hosp follow up [facility] Start: 04-10-2025 End: 04-10-2025 Patient encounter procedure 04/10/2025 1:40 PM EDT Office Visit Internal Medicine [place] [address] [place] [address] Nicolas Greer APRN.MANAGER AUTO [address] [place] [address] rescheduled from 04/04 [facility] [place] Comment on above: rescheduled from 04/04 Start: 04-04-2025 End: 04-04-2025 Patient encounter procedure 04/04/2025 3:40 PM EDT Office Visit Internal Medicine [place] [address] [place] [address] Misbah Elkins MD [address] [place] [address] hosp follow up from [facility] for pneumonia 03/15-03/23 [facility] [place] Comment on above: hosp follow up from [facility] for pneumonia 03/15-03/23 Start: 04-04-2025 End: 04-04-2025 ambulatory 04/04/2025 2:30 PM EDT [facility] Neurology Pain [address] [place] [address] Milly Saleh APRN.PROPERTY DISPOSAL OFFICER, DNP [address] [place], [place] [id number] Chronic recurrent pancreatitis (HCC) [K86.1]; 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]; Chronic RUQ pain [R10.11, G89.29] Neurology Pain Comment on above: Chronic recurrent pancreatitis (HCC) [K8 6.1]; 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]; Chronic RUQ pain [R10.11, G89.29] Start: 03-29-2025 End: 03-29-2025 Patient encounter procedure 03/29/2025 11:40 AM EDT Office Visit Internal Medicine [place] [address] [place] [address] Kervin Salmeron MD [address] [place] [address] hosp follow up [facility] Internal Medicine [place] Comment on above: hosp follow up [facility] Start: 03-15-2025 Patient discharge [facility] Start: 03-15-2025 End: 03-15-2025 [facility] Start: 03-15-2025 Airway suction technique [facility] Start: 03-15-2025 End: 03-15-2025 Patient encounter procedure 03/15/2025 5:40 PM EDT Office Visit Internal Medicine [place] [address] [place] [address] Soila Easton APRN.PROPERTY DISPOSAL OFFICER [address] [place] [address] blood pressure low at ERCP procedure on 03/10 at [facility] Internal Medicine [place] Comment on above: blood pressure low at ERCP procedure on 03/10 at [facility] Start: 03-15-2025 Consultation [facility] Start: 03-15-2025 Consultation [facility] Start: 03-15-2025 Continuous pulse oximetry [facility] Start: 03-15-2025 Care planning and problem solving actions [facility] Start: 03-15-2025 Following clinical pathway protocol [facility] Start: 03-15-2025 [facility] Start: 03-14-2025 End: 03-14-2025 ambulatory 03/14/2025 10:00 AM EDT [facility] Neurology Pain [address] [place] [address] Milly Saleh APRN.PROPERTY DISPOSAL OFFICER, DNP [address] [place] [address] Chronic recurrent pancreatitis (HCC) [K86.1]; 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]; Chronic RUQ pain [R10.11, G89.29] Neurology Pain Comment on above: Chronic recurrent pancreatitis (HCC) [K8 6.1]; 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]; Chronic RUQ pain [R10.11, G89.29] Start: 03-14-2025 Triacylglycerol lipase measurement [facility] Start: 03-14-2025 Following clinical pathway protocol [facility] Start: 03-14-2025 Ambulation without limitation [facility] Start: 03-14-2025 Assessment of risk of venous thromboembolism [facility] Start: 03-14-2025 Insertion of catheter into peripheral vein [facility] Start: 03-14-2025 Oxygen therapy [facility] Start: 03-14-2025 Providing care according to standard [facility] Start: 03-14-2025 [facility] Start: 03-14-2025 Consultation [facility] Start: 03-14-2025 Inhalation therapy procedure [facility] Start: 03-14-2025 Patient referral to dietitian [facility] Start: 03-13-2025 Verification routine [facility] Start: 03-13-2025 Admission procedure [facility] Start: 03-13-2025 Hospital admission, emergency, from emergency room, medical nature [facility] Start: 03-13-2025 End: 03-13-2025 [facility] Start: 03-10-2025 End: 03-10-2025 Patient encounter procedure 03/10/2025 1:00 PM EDT Appointment Gastroenterology [address] [address] Jane Farrell MD [address] [place] [address] Other chronic pancreatitis (HCC) [K86.1] Gastroenterology Comment on above: Other chronic pancreatitis (HCC) [K86.1] Start: 02-26-2025 End: 02-26-2025 [facility] Start: 02-06-2025 End: 02-06-2025 Patient encounter procedure 02/06/2025 9:00 AM EDT Appointment Gastroenterology [address] [address] Jane Farrell MD [address] [place] [address] Other chronic pancreatitis (HCC) [K86.1]w/o interventions Gastroenterology Comment on above: Other chronic pancreatitis (HCC) [K86.1] w/o interventions Start: 01-30-2025 End: 01-30-2025 Anesthesia consultation 01/30/2025 11:10 AM EDT PAT Pre Anesthesia [address] [place] [address] pre procedure 02/06 Pre Anesthesia Comment on above: pre procedure 02/06 Start: 01-27-2025 [facility] Start: 01-27-2025 [facility] Start: 01-24-2025 Annual PCP Team Chronic Disease Visit Annual PCP Team Chronic Disease Visit [facility] Start: 01-13-2025 End: 01-13-2025 Patient encounter procedure [facility] [place] Comment on above: multiple concerns multiple concerns. S ee TE from 01/09/25. Start: 01-11-2025 Annual PCP Team Chronic Disease Visit Annual PCP Team Chronic Disease Visit [facility] Start: 01-11-2025 BP Controlled (<130/80) BP Controlled (<130/80) [facility] Start: 01-05-2025 End: 01-05-2025 ambulatory 01/05/2025 1:00 PM EDT [facility] Neurology Pain [address] [place] [address] Milly Saleh APRN.PROPERTY DISPOSAL OFFICER, DNP [address] [place], [place] [phone] Chronic recurrent pancreatitis (HCC) [K86.1]; 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]; Chronic RUQ pain [R10.11, G89.29] Neurology Pain Comment on above: Chronic recurrent pancreatitis (HCC) [K8 6.1]; 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]; Chronic RUQ pain [R10.11, G89.29] Start: 01-02-2025 End: 01-02-2025 Patient encounter procedure 01/02/2025 8:30 AM EDT Office Visit Neurology Pain [address] [place] [address] [place] [address] [place] [address] [facility] TO [facility] ([facility] PA[facility]) Neurology Pain Comment on above: CONSULT TO [facility] (CHR ONIC PAIN) Start: 01-01-2025 [facility] Start: 01-01-2025 [facility] Start: 12-27-2024 End: 12-27-2024 Patient encounter procedure 12/27/2024 1:00 PM EDT Appointment Gastroenterology [address] [address] Jane Farrell MD [address] [place] [id number] Other chronic pancreatitis (HCC) [K86.1] Gastroenterology Comment on above: Other chronic pancreatitis (HCC) [K86.1] Start: 12-24-2024 [facility] Start: 12-19-2024 End: 03-20-2025 CBC W Auto Differential panel - Blood [facility] Comment on above: Expected: 12/19/2024, Expires: Start: 12-19-2024 End: 03-20-2025 Comprehensive metabolic 2000 panel - Serum or Plasma [facility] Comment on above: Expected: 12/19/2024, Expires: Start: 12-19-2024 End: 03-20-2025 Lipase [Enzymatic activity/volume] in Serum or Plasma [facility] Comment on above: Expected: 12/19/2024, Expires: Start: 12-16-2024 Patient referral [facility] Work Phone: Start: 12-15-2024 Annual PCP Team Chronic Disease Visit Annual PCP Team Chronic Disease Visit [facility] Start: 12-15-2024 BP Controlled (<130/80) BP Controlled (<130/80) [facility] Start: 12-12-2024 Patient discharge [facility] Start: 12-12-2024 End: 12-12-2024 Patient encounter procedure 12/12/2024 11:00 AM EDT Office Visit Internal Medicine [address] [place] [address] Misbah Elkins MD [address] [place], [place] [address] 1 Month F/U [facility] [place] Comment on above: 1 Month F/U Start: 12-10-2024 Respiratory Culture Respiratory Culture [facility] Start: 12-09-2024 Referral to gastroenterology service [facility] Start: 12-08-2024 Videoswallow [facility] Start: 12-08-2024 Inhalation therapy procedure [facility] Start: 12-07-2024 Speech therapy assessment [facility] Start: 12-07-2024 Continuous pulse oximetry [facility] Start: 12-07-2024 [facility] Start: 12-05-2024 Referral to service [facility] Start: 12-05-2024 Consultation [facility] Start: 12-05-2024 Continuous positive airway pressure ventilation treatment [facility] Start: 12-04-2024 Following clinical pathway protocol [facility] Start: 12-04-2024 Ambulation without limitation [facility] Start: 12-04-2024 Assessment of risk of venous thromboembolism [facility] Start: 12-04-2024 Bacteria identified in Sputum by Culture [facility] Start: 12-04-2024 Catheterization of vein [facility] Start: 12-04-2024 Incentive spirometry [facility] Start: 12-04-2024 Insertion of catheter into peripheral vein [facility] Start: 12-04-2024 Measuring intake and output [facility] Start: 12-04-2024 Oxygen therapy [facility] Start: 12-04-2024 Providing care according to standard [facility] Start: 12-04-2024 Referral to service [facility] Start: 12-04-2024 Tobacco use cessation education [facility] Start: 12-04-2024 [facility] Start: 12-04-2024 Respiratory pathogens DNA and RNA panel - Respiratory specimen by KANDY with probe detection [facility] Start: 12-04-2024 Verification routine [facility] Start: 12-04-2024 Admission procedure [facility] Start: 12-04-2024 Hospital admission, emergency, from emergency room, medical nature [facility] Start: 12-04-2024 End: 12-04-2024 [facility] Start: 12-01-2024 End: 12-01-2024 Patient encounter procedure 12/01/2024 10:00 AM EST Appointment Gastroenterology [address] [place] [id number] Jane Farrell MD [address] [address] Chronic recurrent pancreatitis (HCC) [K86.1] Gastroenterology Comment on above: Chronic recurrent pancreatitis (HCC) [K8 6.1] Start: 11-29-2024 End: 02-28-2025 Lipid 1996 panel - Serum or Plasma LIPID PANEL BASIC Lab Routine Hyperlipidemia Expected: 11/29/2024, Expires: 02/28/2025 [facility] Work Phone: Comment on above: Expected: 11/29/2024, Expires: Start: 11-07-2024 End: 11-07-2024 Patient encounter procedure [facility] [place] Comment on above: 3 month follow up 3 month follow up-di scuss elevated WBC Start: 11-02-2024 End: 11-02-2024 Patient encounter procedure 11/02/2024 2:00 PM EST Office Visit Gastroenterology [address] [address] Juan Senior APRN.PROPERTY DISPOSAL OFFICER [address] [place] [address] Chronic recurrent pancreatitis (HCC) [K86.1]; Alcohol-induced chronic [...] Nausea Expected: 08/10/2024, Expires: 11/09/[address] [facility] Comment on above: Expected: 08/10/2024, Expires: Start: 08-10-2024 End: 11-09-2024 Comprehensive metabolic 2000 panel - Serum or Plasma COMPREHENSIVE METABOLIC PANEL Lab Routine Upper abdominal pain Nausea Expected: 08/10/2024, Expires: 11/09/[address] [facility] Comment on above: Expected: 08/10/2024, Expires: Start: 08-10-2024 End: 11-09-2024 Hemoglobin A1c in Blood HEMOGLOBIN A1C Lab Routine Urinary incontinence, unspecified type Urinary frequency Elevated glucose Expected: 08/10/2024, Expires: 11/09/[address] [facility] Comment on above: Expected: 08/10/2024, Expires: Start: 08-10-2024 End: 11-09-2024 Lipase [Enzymatic activity/volume] in Serum or Plasma LIPASE Lab Routine Upper abdominal pain Nausea Expected: 08/10/2024, Expires: 11/09/2024 [facility] Work Phone: Comment on above: Expected: 08/10/2024, Expires: Start: 08-05-2024 End: 11-04-2024 CBC W Auto Differential panel - Blood [facility] Work Phone: Comment on above: Expected: 08/05/2024, Expires: Start: 07-13-2024 End: 07-13-2024 Patient encounter procedure 07/13/2024 3:00 PM EDT Office Visit [facility] [place] [address] [place], [place] [phone] Soila Easton APRN.PROPERTY DISPOSAL OFFICER [address] [place], [place] [phone] medication f/u [facility] [place] Comment on above: medication f/u Start: 07-05-2024 HPV TESTING HPV TESTING [facility] Start: 07-05-2024 Screening for malignant neoplasm of cervix HPV Testing [facility] Start: 06-21-2024 End: 06-21-2024 Patient encounter procedure 06/21/2024 2:00 PM EDT Office Visit Internal [place] [address] [facility] [place] [address] Misbah Elkins MD [address] [facility] [place] [address] med check Internal Medicine [place] Comment on above: med check Start: 05-29-2024 Covid-19 Vaccine () Covid-19 Vaccine () [facility] Start: 05-29-2024 Covid-19 Vaccine () Covid-19 Vaccine () [facility] Start: 05-29-2024 Influenza vaccination [facility] Start: 05-23-2024 End: 05-23-2024 Patient encounter procedure 05/23/2024 1:00 PM EDT Office Visit [facility] [place] [address] [facility] [place] [address] Soila Easton APRN.PROPERTY DISPOSAL OFFICER [address] [facility] [place] [address] medication f/u [facility] [place] Comment on above: medication f/u Start: 05-17-2024 End: 05-17-2024 Patient encounter procedure 05/17/2024 4:00 PM EDT Office Visit [facility] [place] [address] [facility] [place] [address] Misbah Elkins MD [address] [facility] [place] [address] medication follow up [facility] [place] Comment on above: medication follow up Start: 05-10-2024 End: 05-10-2024 Patient encounter procedure 05/10/2024 1:40 PM EDT Office Visit [facility] [place] [address] [facility] [place] [address] Soila Easton APRN.PROPERTY DISPOSAL OFFICER [address] [facility] [place] [address] 3 month follow up [facility] Internal [facility] [place] Comment on above: 3 month follow up At[facility] Start: 04-21-2024 End: 04-21-2024 Patient encounter procedure 04/21/2024 8:20 AM EDT Office Visit Internal Medicine [place] [address] [place] [address] Soila Easton APRN.PROPERTY DISPOSAL OFFICER [address] [place] [address] 3 [facility] Comment on above: 3 month follow up [facility] Start: 04-15-2024 ANNUAL PCP TEAM CHRONIC DISEASE VISIT ANNUAL PCP TEAM CHRONIC DISEASE VISIT [facility] Start: 04-15-2024 BP CONTROLLED (<130/80) BP CONTROLLED (<130/80) [facility] Start: 03-26-2024 DIABETES SCREEN DIABETES SCREEN [facility] Start: 03-18-2024 End: 03-18-2024 Patient encounter procedure 03/18/2024 1:20 PM EDT Office Visit Internal [facility] [address] [place] [address] Soila Easton APRN.PROPERTY DISPOSAL OFFICER [address] [place] [address] 3 [facility] Comment on above: 3 month follow up [facility] Start: 01-25-2024 End: 01-25-2024 Patient encounter procedure 01/25/2024 1:20 PM EDT Office Visit [facility] [address] [place] [address] Tara Youngblood APRN.PROPERTY DISPOSAL OFFICER [address] [place] [address] [facility] ER follow up, acute pain right foot and ankle, no clot Family [facility] Comment on above: [facility] ER follow up, acute pain right foot and ankle, no clot Start: 01-19-2024 [facility] Start: 01-19-2024 End: 04-19-2024 Basic metabolic 2000 panel - Serum or Plasma BASIC METABOLIC PANEL Lab Routine Hyponatremia Expected: 01/19/2024 (Approximate), Expires: 04/19/2024 [facility] Work Phone: Comment on above: Expected: 01/19/2024 (Approximate), Expi res: 04/19/2024 Start: 01-19-2024 End: 04-19-2024 CBC W Auto Differential panel - Blood COMPLETE BLOOD COUNT AND DIFFERENTIAL Lab Routine Leukocytosis, unspecified type Expected: 01/19/2024 (Approximate), Expires: 04/19/2024 [facility] Work Phone: Comment on above: Expected: 01/19/2024 (Approximate), Expi res: 04/19/2024 Start: 01-11-2024 Colonoscopy COLONOSCOPY [facility] Start: 01-11-2024 COLORECTAL CANCER SCREENING COLORECTAL CANCER SCREENING [facility] Start: 01-11-2024 Screening for malignant neoplasm of colon [facility] Start: 01-05-2024 Patient discharge [facility] Start: 01-05-2024 Blood chemistry [facility] Start: 01-04-2024 Respiratory microbial culture Respiratory Culture [facility] Start: 01-04-2024 [facility] Start: 01-03-2024 Respiratory secretion precautions [facility] Start: 01-02-2024 Assessment of risk of venous thromboembolism [facility] Start: 01-02-2024 Inhalation therapy procedure [facility] Start: 01-02-2024 Insertion of catheter into peripheral vein [facility] Start: 01-02-2024 Introduction of urinary catheter [facility] Start: 01-02-2024 Measuring intake and output [facility] Start: 01-02-2024 Oxygen therapy [facility] Start: 01-02-2024 Providing care according to standard [facility] Start: 01-02-2024 Provision of activity privileges [facility] Start: 01-02-2024 Referral to service [facility] Start: 01-02-2024 Tobacco use cessation education [facility] Start: 01-02-2024 [facility] Start: 01-02-2024 Following clinical pathway protocol [facility] Start: 01-02-2024 Legionella pneumophila Ag [Presence] in Urine [facility] Start: 01-02-2024 Respiratory pathogens DNA and RNA panel - Respiratory specimen by KANDY with probe detection [facility] Start: 01-02-2024 End: 01-02-2024 Streptococcus pneumoniae antigen assay [facility] Start: 01-02-2024 Hospital admission, emergency, from emergency room, medical nature [facility] Start: 01-02-2024 Admission procedure [facility] Start: 01-02-2024 Verification routine [facility] Start: 01-02-2024 End: 01-02-2024 Blood culture [facility] Start: 01-02-2024 [facility] Start: 01-02-2024 Bacteria identified in Blood by Culture Blood Culture [facility] Start: 01-02-2024 Legionella Antigen Legionella Antigen [facility] Start: 01-02-2024 Streptococcus pneumoniae Antigen (M Streptococcus pneumoniae Antigen (M [facility] Start: 12-27-2023 ANNUAL PCP TEAM CHRONIC DISEASE VISIT ANNUAL PCP TEAM CHRONIC DISEASE VISIT [facility] Start: 12-16-2023 End: 03-16-2024 25-hydroxyvitamin D3 [Mass/volume] in Serum or Plasma VITAMIN D 25 HYDROXY Lab Routine Vitamin D deficiency Expected: 12/16/2023, Expires: 03/16/2024 [facility] Work Phone: Comment on above: Expected: 12/16/2023, Expires: Start: 12-16-2023 End: 03-16-2024 CBC W Auto Differential panel - Blood CBC + DIFF Lab Routine Alcohol-induced chronic pancreatitis (HCC) Tachycardia Hyperlipidemia, unspecified hyperlipidemia type Insomnia, unspecified type Vitamin D deficiency Chronic obstructive pulmonary disease, unspecified COPD type (HCC) Prediabetes Expected: 12/16/2023, Expires: 03/16/2024 [facility] Work Phone: Comment on above: Expected: 12/16/2023, Expires: 4 Start: 12-16-2023 End: 03-16-2024 Comprehensive metabolic 2000 panel - Serum or Plasma COMP METABOLIC PANEL Lab Routine Alcohol-induced chronic pancreatitis (HCC) Tachycardia Hyperlipidemia, unspecified hyperlipidemia type Insomnia, unspecified type Vitamin D deficiency Chronic obstructive pulmonary disease, unspecified COPD type (HCC) Prediabetes Expected: 12/16/2023, Expires: 03/16/2024 [facility] Work Phone: Comment on above: Expected: 12/16/2023, Expires: 4 Start: 12-16-2023 End: 03-16-2024 Lipid 1996 panel - Serum or Plasma LIPID PANEL BASIC Lab Routine Hyperlipidemia, unspecified hyperlipidemia type Expected: 12/16/2023, Expires: 03/16/2024 [facility] Work Phone: Comment on above: Expected: 12/16/2023, Expires: 4 Start: 11-29-2023 ANNUAL PCP TEAM CHRONIC DISEASE VISIT ANNUAL PCP TEAM CHRONIC DISEASE VISIT [facility] Start: 11-29-2023 BP CONTROLLED (<130/80) BP CONTROLLED (<130/80) [facility] Start: 11-27-2023 BP CONTROLLED (<130/80) BP CONTROLLED (<130/80) [facility] Start: 11-25-2023 ANNUAL PCP TEAM CHRONIC DISEASE VISIT ANNUAL PCP TEAM CHRONIC DISEASE VISIT [facility] Start: 11-11-2023 ANNUAL PCP TEAM CHRONIC DISEASE VISIT ANNUAL PCP TEAM CHRONIC DISEASE VISIT [facility] Start: 11-11-2023 BP CONTROLLED (<130/80) BP CONTROLLED (<130/80) [facility] Start: 10-20-2023 Basic metabolic 2000 panel - Serum or Plasma Basic Metabolic Panel [facility] Start: 08-31-2023 Pneumococcal Vaccine: 50+ (3 of 3 - PCV20 or PCV21) Pneumococcal Vaccine: 50+ (3 of 3 - PCV20 or PCV21) [facility] Start: 08-27-2023 ANNUAL PCP TEAM CHRONIC DISEASE VISIT ANNUAL PCP TEAM CHRONIC DISEASE VISIT [facility] Start: 07-18-2023 ANNUAL PCP TEAM CHRONIC DISEASE VISIT ANNUAL PCP TEAM CHRONIC DISEASE VISIT [facility] Start: 07-18-2023 BP CONTROLLED (<130/80) BP CONTROLLED (<130/80) [facility] Start: 07-08-2023 [facility] Start: 06-30-2023 Patient referral [facility] Work Phone: Start: 06-02-2023 [facility] Start: 06-02-2023 CT of chest Low Dose CT Lung Screening [facility] Start: 06-02-2023 CT THORAX LUNG CANCER SCR C- CT THORAX LUNG CANCER SCR C- [facility] Start: 05-29-2023 Covid-19 Vaccine ( season) Covid-19 Vaccine ( season) [facility] Start: 05-29-2023 Influenza vaccination [facility] Start: 05-27-2023 BP CONTROLLED (<130/80) BP CONTROLLED (<130/80) [facility] Start: 2023 RSV Vaccine (1 - 1-dose 60+ series) RSV Vaccine (1 - 1-dose 60+ series) [facility] Start: 2023 RSV Vaccine (1 - Risk 60-74 years 1-dose series) RSV Vaccine (1 - Risk 60-74 years 1-dose series) [facility] Start: 04-17-2023 ANNUAL PCP TEAM CHRONIC DISEASE VISIT ANNUAL PCP TEAM CHRONIC DISEASE VISIT [facility] Start: 04-17-2023 BP CONTROLLED (<130/80) BP CONTROLLED (<130/80) [facility] Start: 04-17-2023 COVID-19 VACCINE (3 - Booster for Pfizer series) COVID-19 VACCINE (3 - Booster for Pfizer series) [facility] Comment on above: Postponed from 12/27/2021 (Declined at t his time) Postponed from 09/23 (Declined at this time) Start: 04-17-2023 COVID-19 VACCINE (3 - Pfizer series) COVID-19 VACCINE (3 - Pfizer series) [facility] Comment on above: Postponed from 09/23/2021 (Declined at t his time) Start: 04-17-2023 HIV SCREENING HIV SCREENING [facility] Comment on above: Postponed from 1981 (Declined at t his time) Start: 04-17-2023 PAP TESTING PAP TESTING [facility] Comment on above: Postponed from 07/05/2020 (Declined at t his time) Start: 04-17-2023 SHINGRIX VACCINE (1 of 2) SHINGRIX VACCINE (1 of 2) [facility] Comment on above: Postponed from 2013 (Declined at t his time) Start: 04-15-2023 End: 06-15-2023 Hepatic function 2000 panel - Serum or Plasma [facility] Work Phone: Comment on above: Expected: 04/15/2023, Expires: Start: 04-08-2023 Zoledronic acid therapy ALPHA-1 ANTITRYPSIN DEFICIENCY SCREENING [facility] Comment on above: Postponed from 1993 (Declined at t his time) Start: 03-10-2023 End: 05-10-2023 Lipid 1996 panel - Serum or Plasma LIPID PANEL BASIC Lab Routine Hyperlipidemia Expected: 03/10/2023, Expires: 05/10/2023 [facility] Work Phone: Comment on above: Expected: 03/10/2023, Expires: 3 Start: 03-09-2023 EPVPLASTIC, Provider: Yrn Ortega, Status: Pen, Time: 1:15 PM EPVPLASTIC, Provider: Yrn Ortega, Status: Pen, Time: 1:[address]Ncactclreilsd-M[address]hamk l [address] Work Phone: Start: 02-28-2023 End: 04-30-2023 Hemoglobin A1c in Blood HGB A1C Lab Routine Prediabetes Expected: 02/28/2023 (Approximate), Expires: 04/30/2023 [facility] Work Phone: Comment on above: Expected: 02/28/2023 (Approximate), Expi res: 04/30/2023 Start: 01-28-2023 NPVPLASTIC, Provider: Yrn Ortega, Status: Pen, Time: 2:00 PM NPVPLASTIC, Provider: Yrn Ortega, Status: Pen, Time: 2:00 PM NU-Refvmjjdioigw-Yxgooh l [address] Work Phone: Start: 12-15-2022 End: 12-15-2022 Patient encounter procedure 12/15/2022 Office Visit Family Practice Lalito Hoskins MD [address] [place] [address], [address] [place] [id number] [facility] Start: 12-03-2022 NPVPLASTIC, Provider: Yrn Ortega, Status: Pen, Time: 3:30 PM NPVPLASTIC, Provider: Yrn Ortega, Status: Pen, Time: 3:30 PM DY-Dtswzhpf-Efaodel Moore Work Phone: Start: 12-03-2022 Patient encounter procedure [facility] Start: 11-28-2022 End: 01-28-2023 Basic metabolic 2000 panel - Serum or Plasma BASIC METABOLIC PNL Lab Routine Prediabetes Expected: 11/28/2022, Expires: 01/28/2023 [facility] Work Phone: Comment on above: Expected: 11/28/2022, Expires: 3 Start: 11-27-2022 End: 01-27-2023 Urinalysis complete panel - Urine URINALYSIS, WITH MICROSCOPIC Lab Routine CHUY (acute kidney injury) (HCC) Expected: 11/27/2022, Expires: 01/27/2023 [facility] Work Phone: Comment on above: Expected: 11/27/2022, Expires: 3 Start: 11-26-2022 End: 01-26-2023 Hemoglobin A1c in Blood [facility] Work Phone: Comment on above: Expected: 11/26/2022, Expires: 3 Start: 11-26-2022 End: 01-26-2023 VITAMIN B1 (THIAMINE), WHOLE BLOOD [facility] Work Phone: Comment on above: Expected: 11/26/2022, Expires: 3 Start: 11-26-2022 End: 01-26-2023 VITAMIN B5(PANTOTHENIC AID) BIOASSAY [facility] Work Phone: Comment on above: Expected: 11/26/2022, Expires: 3 Start: 11-25-2022 End: 01-25-2023 Cobalamin (Vitamin B12) [Mass/volume] in Serum or Plasma [facility] Work Phone: Comment on above: Expected: 11/25/2022, Expires: 3 Start: 11-25-2022 End: 01-25-2023 Renal function 2000 panel - Serum or Plasma [facility] Work Phone: Comment on above: Expected: 11/25/2022, Expires: Start: 11-11-2022 End: 01-11-2023 Basic metabolic 2000 panel - Serum or Plasma [facility] Work Phone: Comment on above: Expected: 11/11/2022, Expires: Start: 11-11-2022 End: 11-11-2022 Patient encounter procedure 11/11/2022 Office Visit Ophthalmology Deny Dumont MD [address] [place] [address] [facility] Ophthalmology (Eye) Res[facility] Start: 11-07-2022 Patient discharge [facility] Start: 11-06-2022 End: 11-06-2022 Removal of urinary catheter [facility] Start: 11-06-2022 Care planning and problem solving actions [facility] Start: 11-06-2022 [facility] Start: 11-05-2022 Referral to occupational therapist [facility] Start: 11-05-2022 Referral to service [facility] Start: 11-04-2022 Care planning and problem solving actions [facility] Start: 11-04-2022 End: 11-04-2022 Blood culture [facility] Start: 11-04-2022 Referral to pathologist [facility] Start: 11-04-2022 [facility] Start: 11-04-2022 [facility] Start: 11-03-2022 Care planning and problem solving actions [facility] Start: 11-03-2022 Oxygen therapy [facility] Start: 11-02-2022 Following clinical pathway protocol [facility] Start: 11-02-2022 Physiotherapy of chest [facility] Start: 11-02-2022 Consultation [facility] Start: 11-02-2022 Continuous pulse oximetry [facility] Start: 11-02-2022 Dual pressure spontaneous ventilation support [facility] Start: 11-02-2022 Inhalation therapy procedure [facility] Start: 11-01-2022 Admission procedure [facility] Start: 10-25-2022 End: 10-26-2023 Phenylephrine 0.25% Topical (Preparation H) 1 application Ointment Every 8 Hours ; OintmentDOSE = 1 application(s) Topical Every 8 Hours, PRN HemorrhoidsApply to Buttock Start: 25-Oct-2022 End: 25-Oct-2023 Ordered: 25-Oct-2022 uJstyn Richter Intent [facility] Start: 10-24-2022 End: 10-25-2023 [facility] Start: 10-19-2022 Blood culture [facility] Start: 08-22-2022 [facility] Start: 07-18-2022 End: 09-17-2022 [place] BY IFA SCREEN [facility] Work Phone: Comment on above: Expected: 07/18/2022, Expires: 2 Start: 07-18-2022 End: 09-17-2022 C reactive protein [Mass/volume] in Serum or Plasma [facility] Work Phone: Comment on above: Expected: 07/18/2022, Expires: 2 Start: 07-18-2022 End: 09-17-2022 Erythrocyte sedimentation rate [facility] Work Phone: Comment on above: Expected: 07/18/2022, Expires: 2 Start: 07-18-2022 End: 09-17-2022 Rheumatoid factor [Units/volume] in Serum or Plasma [facility] Work Phone: Comment on above: Expected: 07/18/2022, Expires: 2 Start: 06-28-2022 Influenza vaccination Influenza Vaccine (#1) [facility] Start: 05-29-2022 Influenza vaccination [facility] Start: 04-17-2022 End: 06-17-2022 25-hydroxyvitamin D3 [Mass/volume] in Serum or Plasma [facility] Work Phone: Comment on above: Expected: 04/17/2022, Expires: 2 Start: 04-17-2022 End: 06-17-2022 CBC W Auto Differential panel - Blood [facility] Work Phone: Comment on above: Expected: 04/17/2022, Expires: 2 Start: 04-17-2022 End: 06-17-2022 Comprehensive metabolic 2000 panel - Serum or Plasma [facility] Work Phone: Comment on above: Expected: 04/17/2022, Expires: 2 Start: 04-17-2022 End: 06-17-2022 Ferritin [Mass/volume] in Serum or Plasma [facility] Work Phone: Comment on above: Expected: 04/17/2022, Expires: 2 Start: 04-17-2022 End: 06-17-2022 Iron and Iron binding capacity panel - Serum or Plasma [facility] Work Phone: Comment on above: Expected: 04/17/2022, Expires: 2 Start: 04-17-2022 End: 06-17-2022 Lipid 1996 panel - Serum or Plasma [facility] Work Phone: Comment on above: Expected: 04/17/2022, Expires: 2 Start: 04-17-2022 End: 06-17-2022 Thyrotropin [Units/volume] in Serum or Plasma [facility] Work Phone: Comment on above: Expected: 04/17/2022, Expires: 2 Start: 03-26-2022 ANNUAL PCP TEAM CHRONIC DISEASE VISIT ANNUAL PCP TEAM CHRONIC DISEASE VISIT [facility] Start: 03-26-2022 BP CONTROLLED (<130/80) BP CONTROLLED (<130/80) [facility] Start: 03-03-2022 [facility] Work Phone: Start: 02-11-2022 End: 04-13-2022 Basic metabolic 2000 panel - Serum or Plasma BASIC METABOLIC PNL Lab Routine Essential hypertension, benign Expected: 02/11/2022, Expires: 04/13/2022 [facility] Work Phone: Comment on above: Expected: 02/11/2022, Expires: 2 Start: 02-11-2022 End: 04-13-2022 SCHEDULE LAB TESTING SCHEDULE LAB TESTING Lab Routine Expected: 02/11/2022, Expires: 04/13/2022 [facility] Work Phone: Comment on above: Expected: 02/11/2022, Expires: 2 Start: 09-23-2021 COVID-19 Vaccine (3 - Booster for Pfizer series) COVID-19 Vaccine (3 - Booster for Pfizer series) [facility] Start: 09-23-2021 COVID-19 VACCINE (3 - Pfizer series) COVID-19 VACCINE (3 - Pfizer series) [facility] Start: 08-28-[address] [facility] Start: 08-28-2021 Screening for malignant neoplasm of breast Mammogram Screening [facility] Start: 07-09-2021 COVID-19 VACCINE (2 - Pfizer 3-dose series) COVID-19 VACCINE (2 - Pfizer 3-dose series) [facility] Start: 07-09-2021 COVID-19 VACCINE (2 - Pfizer series) COVID-19 VACCINE (2 - Pfizer series) [facility] Start: 07-05-2020 PAP TESTING PAP TESTING [facility] Start: 07-05-2020 Screening for malignant neoplasm of cervix [facility] Start: 12-20-2015 FECAL OCCULT BLOOD FECAL OCCULT BLOOD [facility] Start: 12-20-2015 Screening for malignant neoplasm of colon Fecal Occult Blood [facility] Start: 2013 Measurement of occult blood in single stool specimen FIT [facility] Start: 2013 Screening for malignant neoplasm of colon CRC Screening [facility] Start: 2013 Shingles (RZV) Vaccine (1 of 2) Shingles (RZV) Vaccine (1 of 2) [facility] Start: 2013 SHINGRIX VACCINE (1 of 2) SHINGRIX VACCINE (1 of 2) [facility] Start: 2008 Cholesterol [Mass/volume] in Serum or Plasma Cholesterol [facility] Start: 2008 COLOGUARD (FIT-DNA) COLOGUARD (FIT-DNA) [facility] Start: [address] COLONOGRAPHY [facility] Start: 2008 Screening for malignant neoplasm of colon [facility] Start: 2008 SIGMOIDOSCOPY SIGMOIDOSCOPY [facility] Start: 2003 Screening for malignant neoplasm of breast Mammography [facility] Start: 1993 Zoledronic acid therapy ALPHA-1 ANTITRYPSIN DEFICIENCY SCREENING [facility] Start: 1984 Screening for malignant neoplasm of cervix Pap Smear [facility] Start: 1981 Hepatitis C screening Hepatitis C Antibody [facility] Start: 1981 HIV SCREENING HIV SCREENING [facility] Start: 1981 HIV screening HIV Screening [facility] Start: 1981 Tetanus + diphtheria + acellular pertussis vaccine (product) Tdap Booster [facility] Start: 1978 HIV screening HIV Test [facility] Start: 1963 Abdominal aortic aneurysm screening Pulmonary Function Testing [facility] Start: 1963 Screening for malignant neoplasm of colon [facility] Anion gap in Serum o r Plasma [facility] Anion gap measurement [facility] Bacteria identified in Blood by Culture Blood Culture [facility] Bacteria identified in Blood by Culture Blood Culture [facility] Bacteria identified in Sputum by Respiratory culture [facility] BUN/Creatinine ratio [facility] BUN/Creatinine ratio [facility] Calcium [Mass/volume ] in Serum or Plasma [facility] Calcium [Mass/volume ] in Serum or Plasma [facility] Carbon dioxide, tota l [Moles/volume] in Central venous blood [facility] Carbon dioxide, tota l [Moles/volume] in Serum or Plasma [facility] Chloride [Moles/volu me] in Serum or Plasma [facility] Clostridioides diffi cile DNA [Presence] in Unspecified specimen by KANDY with probe detection [facility] Creatinine [Mass/vol ume] in Serum or Plasma [facility] Creatinine [Moles/volume] in Serum or Plasma [facility] End: 09-14-2025 CT Abdomen and Pelvis W contrast IV CT ABD/PEL W IVCON Radiology Routine Alcoholic hepatitis without ascites Acute pancreatitis, unspecified complication status, unspecified pancreatitis type Upper abdominal pain Nausea Elevated lipase Generalized abdominal tenderness without rebound tenderness 1 Occurrences starting 08/15/2024 until 09/14/2025 [facility] Work Phone: Comment on above: 1 Occurrences starting 08/15/2024 until 09/14/2025 CT Abdomen and Pelvi s W contrast IV CT ABD/PEL W IVCON Radiology Routine Alcoholic hepatitis without ascites Acute pancreatitis, unspecified complication status, unspecified pancreatitis type Upper abdominal pain Nausea Elevated lipase Generalized abdominal tenderness without rebound tenderness 08/23/2024 9:53 AM EST [facility] Work Phone: CT Chest [facility] CT Chest [facility] End: 06-03-2025 DBT Breast - bilateral screening SIMI SCREENING W CYNTHIA Radiology Routine Encounter for screening mammogram for breast cancer 1 Occurrences starting 05/04/2024 until 06/03/2025 [facility] Work Phone: Comment on above: 1 Occurrences starting 05/04/2024 until 06/03/2025 End: 05-11-2026 DBT Breast - bilateral screening SIMI SCREENING W [facility] Routine Encounter for screening mammogram for breast cancer 1 Occurrences starting 04/11/2025 until 05/11/2026 [facility] Work Phone: Comment on above: 1 Occurrences starting 04/11/2025 until 05/11/2026 End: 11-02-2025 EGD - THERAPEUTIC, EUS, OR TUBE INTERVENTIONS EGD - THERAPEUTIC, EUS, OR TUBE INTERVENTIONS Endoscopy Routine Chronic recurrent pancreatitis (HCC) Alcohol-induced chronic pancreatitis (HCC) Chronic RUQ pain 1 Occurrences starting 11/02/2024 until 11/02/2025 [facility] Work Phone: Comment on above: 1 Occurrences starting 11/02/2024 until 11/02/2025 Elastase.pancreatic [Presence] in Stool [facility] End: 11-27-2023 EMG(NEURO/NI) EMG(NEURO/NI) EMG Routine Numbness and tingling of both lower extremities Neuropathy Numbness and tingling of both feet 1 Occurrences starting 11/26/2022 until 11/27/2023 [facility] Work Phone: Comment on above: 1 Occurrences starting 11/26/2022 until 11/27/2023 End: 12-01-2025 ERCP ERCP Endoscopy Routine Other chronic pancreatitis (HCC) 1 Occurrences starting 12/01/2024 until 12/01/2025 [facility] Work Phone: Comment on above: 1 Occurrences starting 12/01/2024 until 12/01/2025 End: 04-04-2026 ERCP ERCP Endoscopy Routine Chronic recurrent pancreatitis (HCC) 1 Occurrences starting 04/04/2025 until 04/04/2026 [facility] Work Phone: Comment on above: 1 Occurrences starting 04/04/2025 until 04/04/2026 Erythrocyte mean corpuscular volume determination [facility] Folate [Moles/volume ] in Serum or Plasma [facility] Giardia lamblia Ag [Presence] in Stool by Immunoassay [facility] Giardia lamblia anti gen assay [facility] Glucose [Mass/volume ] in Serum or Plasma [facility] Glucose [Mass/volume ] in Serum or Plasma [facility] Hematocrit [Volume Fraction] of Blood [facility] Hemoglobin [Mass/vol ume] in Blood [facility] Legionella pneumophi la Ag [Presence] in Urine [facility] Leukocytes [#/volume ] in Blood [facility] End: 07-02-2024 SIMI SCREENING [facility] Radiology Routine Encounter for screening mammogram for breast cancer 1 Occurrences starting 06/03/2023 until 07/02/2024 [facility] Work Phone: Comment on above: 1 Occurrences starting 06/03/2023 until 07/02/2024 Mean corpuscular hemoglobin concentration determination [facility] Mean corpuscular hemoglobin determination [facility] Measurement of renal function [facility] Measurement of renal function [facility] Microorganism identi fied in Unspecified specimen by Culture [facility] Microscopic observat ion [Identifier] in Unspecified specimen by Gram stain [facility] Neutrophil count [facility] Neutrophil percent differential count [facility] Nucleic acid assay [facility] Ova OR parasites identification [facility] Ova OR parasites identification [facility] Patient Education [facility] Work Phone: Patient referral [facility] Work Phone: Platelets [#/volume] in Blood [facility] Potassium [Moles/vol ume] in Serum or Plasma [facility] Potassium measurement [facility] Protein measurement [facility] End: 12-25-2023 Radex spine lumbosacral 2/3 views XR LUMBAR GENERAL 3V AP/LAT/L5-S1 Radiology Routine Numbness and tingling of both lower extremities 1 Occurrences starting 11/25/2022 until 12/25/2023 [facility] Work Phone: Comment on above: 1 Occurrences starting 11/25/2022 until 12/25/2023 Radex spine lumbosac ral 2/3 views XR LUMBAR GENERAL 3V AP/LAT/L5-S1 Radiology Routine Numbness and tingling of both lower extremities 11/25/2022 11:18 AM EST [facility] Work Phone: Red blood cell count [facility] Red cell distributio n width determination [facility] End: 07-25-2023 Screening mammography bi 2-view breast inc cad [facility] Radiology Routine Encounter for screening mammogram for breast cancer 1 Occurrences starting 06/25/2022 until 07/25/2023 [facility] Work Phone: Comment on above: 1 Occurrences starting 06/25/2022 until 07/25/2023 Serum chloride measurement [facility] Sodium [Moles/volume ] in Serum or Plasma [facility] Sodium measurement [facility] Streptococcus pneumo niae antigen assay [facility] Triacylglycerol lipa se measurement [facility] UA DIP, URINE (POC) UA DIP, URIN E (POC) Lab Routine Urinary incontinence, unspecified type Urinary frequency Ordered: 08/10/[address] [facility] Comment on above: Ordered: 08/10/2024 Urea nitrogen [Mass/volume] in Serum or Plasma [facility] Urea nitrogen [Mass/volume] in Serum or Plasma [facility] Urine culture [facility] End: 09-09-2025 US Abdomen RUQ US ABD RIGHT UPPER QUADRANT Radiology Routine Upper abdominal pain Nausea 1 Occurrences starting 08/10/2024 until 09/09/[address] [facility] Comment on above: 1 Occurrences starting 08/10/2024 until 09/09/2025 End: 05-17-2023 Us abdominal real time w/image limited US ABD RT UPPER QUADRANT Radiology Routine Alcohol-induced chronic pancreatitis (HCC) Alcoholic hepatitis without ascites 1 Occurrences starting 04/17/2022 until 05/17/2023 [facility] Work Phone: Comment on above: 1 Occurrences starting 04/17/2022 until 05/17/2023 Us abdominal real ti me w/image limited US ABD RT UPPER QUADRANT Radiology Routine Alcohol-induced chronic pancreatitis (HCC) Alcoholic hepatitis without ascites 05/02/2022 9:37 AM EDT [facility] Work Phone: End: 04-25-2026 US Carotid arteries - bilateral US CAROTID ARTERIES [facility] Vascular Lab Routine Stenosis of left carotid artery 1 Occurrences starting 04/25/2025 until 04/25/[address] [facility] Comment on above: 1 Occurrences starting 04/25/2025 until 04/25/2026 End: 04-25-2026 US Upper extremity artery US ARM ARTERIAL [facility] Vascular Lab Routine Subclavian arterial stenosis 1 Occurrences starting 04/25/2025 until 04/25/2026 [facility] Work Phone: Comment on above: 1 Occurrences starting 04/25/2025 until 04/25/2026 XR Abdomen Single view [facility] End: 02-23-2025 XR Chest PA and Lateral XR CHEST 2V FRONTAL/LAT Radiology Routine Pneumonia due to infectious organism, unspecified laterality, unspecified part of lung Acute right ankle pain 1 Occurrences starting 01/25/2024 until 02/23/2025 [facility] Work Phone: Comment on above: 1 Occurrences starting 01/25/2024 until 02/23/2025 XR Chest PA and Lateral XR CHEST 2V FRONTAL/LAT Radiology Routine Pneumonia due to infectious organism, unspecified laterality, unspecified part of lung Acute right ankle pain 01/25/2024 2:13 PM EDT [facility] End: 09-09-2025 XR Chest PA and Lateral XR CHEST 2V FRONTAL/LAT Radiology Routine Shortness of breath Chronic obstructive pulmonary disease with acute exacerbation (HCC) Tobacco use disorder Pulmonary emphysema, unspecified emphysema type (HCC) 1 Occurrences starting 08/10/2024 until 09/09/[address] [facility] Comment on above: 1 Occurrences starting 08/10/2024 until 09/09/2025 XR Chest PA and Lateral XR CHEST 2V FRONTAL/LAT Radiology Routine Shortness of breath Chronic obstructive pulmonary disease with acute exacerbation (HCC) Tobacco use disorder Pulmonary emphysema, unspecified emphysema type (HCC) 08/10/2024 5:47 PM EST [facility] End: 01-18-2026 XR Chest PA and Lateral XR CHEST 2V FRONTAL/LAT Radiology Routine Chronic recurrent pancreatitis (HCC) Chronic obstructive pulmonary disease, unspecified COPD type (HCC) Hospital discharge follow-up 1 Occurrences starting 12/19/2024 until 01/18/2026 [facility] Work Phone: Comment on above: 1 Occurrences starting 12/19/2024 until 01/18/2026 XR Chest PA and Lateral XR CHEST 2V FRONTAL/LAT Radiology Routine Chronic recurrent pancreatitis (HCC) Chronic obstructive pulmonary disease, unspecified COPD type (HCC) Hospital discharge follow-up 12/19/2024 4:01 PM EDT [facility] Immunizations Immunization Date Immunization Notes Care Provider [facility] 08-05-2024 influenza, seasonal, injectable Misbah Elkins MD Work Phone: [facility] 08-05-2024 influenza virus vacc ine, unspecified formulation Herman Nevarez RN [facility] 07-18-2022 influenza, injectabl e, quadrivalent, contains preservative Soila Older SENIOR ERP CONSULTANT.PROPERTY DISPOSAL OFFICER Work Phone: [facility] 07-18-2022 influenza, injectabl e, quadrivalent, preservative free [employer] SOILA OLDER Work Phone: [facility] 07-18-2022 influenza, seasonal, injectable [employer] SOILA OLDER Work Phone: [facility] 07-18-2022 influenza virus vacc ine, unspecified formulation Soila Older SENIOR ERP CONSULTANT.PROPERTY DISPOSAL OFFICER Work Phone: [facility] 06-18-2021 Covid (Pfizer) [employer] SOILA OLDE R Work Phone: [facility] 08-12-2020 tetanus toxoid, redu enid diphtheria toxoid, and acellular pertussis vaccine, adsorbed Víctor Mcpherson SENIOR ERP CONSULTANT.TIFFANIE COSTA Work Phone: [facility] Work Phone: 05-24-2020 influenza, injectabl e, quadrivalent, contains preservative Víctor Mcpherson SENIOR ERP CONSULTANT.TIFFANIE COSTA Work Phone: [facility] 07-26-2019 influenza, injectabl e, quadrivalent, contains preservative Víctor Mcpherson SENIOR ERP CONSULTANT.TIFFANIE COSTA Work Phone: [facility] 08-31-2018 pneumococcal polysaccharide vaccine, 23 valent Víctor Mcpherson SENIOR ERP CONSULTANT.TIFFANIE COSTA Work Phone: [facility] 08-17-2018 influenza, seasonal, injectable Víctor Mcpherson SENIOR ERP CONSULTANT.TIFFANIE COSTA Work Phone: [facility] 08-11-2018 Influenza, injectabl e, Madin Mitzi Canine Kidney, preservative free, quadrivalent Víctor Mcpherson SENIOR ERP CONSULTANT.[facility] Work Phone: [facility] Work Phone: 07-13-2018 influenza, injectabl e, quadrivalent, preservative free [employer] SOILA EASTON Work Phone: [facility] 07-13-2018 influenza, seasonal, injectable [employer] Theron Teague [employer] Work Phone: [facility] 07-13-2018 influenza, seasonal, injectable, preservative free Víctor Mcpherson SENIOR ERP CONSULTANT.[facility] Work Phone: [facility] Work Phone: 08-27-2017 pneumococcal conjuga te vaccine, 13 valent Víctor Mcpherson SENIOR ERP CONSULTANT.TIFFANIE COSTA Work Phone: [facility] 07-13-2017 influenza, injectabl e, quadrivalent, contains preservative Víctor Blarose SENIOR ERP CONSULTANT.TIFFANIE COSTA Work Phone: [facility] 06-24-2016 influenza, injectabl e, quadrivalent, contains preservative Víctor Blaz SENIOR ERP CONSULTANT.[facility] Work Phone: [facility] 10-28-2013 Influenza virus vaccine [employer] Theron Teague [employer] Work Phone: [facility] 10-28-2013 influenza, seasonal, injectable, preservative free Víctor Mcpherson SENIOR ERP CONSULTANT.[facility] Work Phone: [facility] Work Phone: 10-28-2013 Dr. Misbah valdes MD Work Phone: [facility] 07-17-2012 influenza virus vacc ine, unspecified formulation Víctor Blaz SENIOR ERP CONSULTANT.[facility] Work Phone: [facility] 07-19-2011 influenza virus vacc ine, unspecified formulation Víctor Blaz SENIOR ERP CONSULTANT.[facility] Work Phone: [facility] Work Phone: 07-30-2010 influenza virus vacc ine, unspecified formulation Víctor Blaz SENIOR ERP CONSULTANT.[facility] Work Phone: [facility] 10-05-2009 pneumococcal polysaccharide vaccine, 23 valent Víctor Blaz SENIOR ERP CONSULTANT.[facility] Work Phone: [facility] Work Phone: 10-05-2009 Pneumococcal Vaccine [employer] Onesimo Teague [employer] Work Phone: [facility] Work Phone: 10-05-2009 pneumococcal vaccine , unspecified formulation [employer]-Nichole EASTON Work Phone: [facility] 08-14-2009 novel influenza-H1N1 -09, all formulations Víctor Mcpherson SENIOR ERP CONSULTANT.[facility] Work Phone: [facility] 07-06-2009 influenza virus vacc ine, unspecified formulation Víctor Blaz SENIOR ERP CONSULTANT.[facility] Work Phone: [facility] Work Phone: 03-28-2007 pneumococcal polysaccharide vaccine, 23 valent Víctor Blaz SENIOR ERP CONSULTANT.[facility] Work Phone: [facility] Payers Date Payer Category Payer Self-pay 2015 Unknown [id number] 2015 Unknown [id number] 2006 Medicaid [employer] [id number] 2006-Present [phone] [address] [place] [address] Medicaid [id number]. [id number] 2006 Medicaid [id number]. 1.13.159.2.7.3. [id number] 1963 Unknown [id number] 2.16840.1.341161.3.579.2.73 1963 Unknown [id number] 2.16.840.1.714143.3.579.2.732 1963 Unknown [id number] 2.16.840.1.229859.3.579.2. 1963 Unknown [id number] 2.16840.1.584350.3.579.2.732 1963 Unknown [id number] 2.16840.1.473065.3.579.2.73 1963 Unknown [id number] 2.16.840.1.925042.3.579.2.732 1963 Unknown [id number] 2.16.840.1.275766.3.579.2.73 1963 Unknown [id number] 2.16.840.1.810728.3.579.2.732 1963 Unknown [id number] 2.16.840.1.344708.3.579.2.73 1963 Unknown [id number] 2.16.840.1.998521.3.579.2.356 1963 Unknown [id number] 2..840.1.191864.3.579.2.356 1963 Unknown [id number] 2.16.840.1.402051.3.579.2.356 1963 Unknown [id number] 2.840.1.486238.3.579.2.356 1963 Unknown [id number] 2.840.1.029782.3.579.2.356 1963 Unknown [id number] 2.840.1.885711.3.579.2.356 1963 Unknown [id number] 2.840.1.439483.3.579.2.356 Unknown Unknown [id number] 2.840.1.165702.3.579.2.462 Unknown [id number] 2.840.1.702642.3.579.2.462 Unknown [id number] 2.840.1.353470.3.579.2.462 Unknown [id number] 2.840.1.322541.3.579.2.462 Unknown [id number] 2.840.1.728930.3.579.2.462 Unknown [id number] 2.840.1.532904.3.579.2.462 Unknown [id number] 2.840.1.425973.3.579.2.462 Unknown [id number] 2.840.1.643379.3.579.2.462 Unknown [id number] 2.840.1.923615.3.579.2.462 Unknown [id number] 2.16840.1.217758.3.579.2.462 Unknown [id number] 2.840.1.689600.3.579.2.462 Unknown [id number] 2.16.840.1.235301.3.579.2.462 Unknown [id number] 2.16.840.1.812333.3.579.2.462 Unknown [id number] 2.16.840.1.329073.3.579.2.462 Unknown [id number] 2.16840.1.972755.3.579.2.462 Unknown [id number] 2.16840.1.197706.3.579.2.462 Unknown [id number] 2.16840.1.997646.3.579.2.462 Unknown [id number] 2.840.1.311192.3.579.2.462 Unknown [id number] 2.840.1.079579.3.579.2.462 Unknown [id number] 2.840.1.396114.3.579.2.462 Unknown [id number] 2.840.1.351351.3.579.2.462 Unknown [id number] 2.840.1.988235.3.579.2.462 Unknown [id number] 2.840.1.364599.3.579.2.462 Unknown [id number] 2.840.1.454160.3.579.2.462 Unknown [id number] 2.840.1.607518.3.579.2.462 Unknown [id number] 2.840.1.862869.3.579.2.462 Unknown [id number] 2.16840.1.969858.3.579.2.462 Unknown [id number] 2.16840.1.601604.3.579.2.462 Unknown [id number] 2.16840.1.360759.3.579.2.462 Unknown [id number] 2.16.840.1.779914.3.579.2.462 Unknown [id number] 2.16.840.1.391215.3.579.2.462 Unknown [id number] 2.16.840.1.948416.3.579.2.462 Unknown [id number] 2.16.840.1.045714.3.579.2.462 Unknown [id number] 2.16.840.1.247993.3.579.2.462 Unknown [id number] 2.16.840.1.020734.3.579.2.462 Unknown [id number] 2.16.840.1.560748.3.579.2.462 Unknown [id number] 2.16.840.1.327984.3.579.2.462 Unknown [id number] 2.16.840.1.341805.3.579.2.462 Unknown [id number] 2.16.840.1.103999.3.579.2.462 Unknown [id number] 2.16.840.1.087457.3.579.2.462 Unknown [id number] 2.16.840.1.675364.3.579.2.462 Unknown [id number] 2.16.840.1.611634.3.579.2.462 Unknown [id number] 2.16.840.1.628121.3.579.2.462 Unknown [id number] 2.16.840.1.511093.3.579.2.462 Unknown [id number] 2.16.840.1.247904.3.579.2.462 Unknown [id number] 2.16.840.1.898960.3.579.2.462 Unknown [id number] 2.16.840.1.730199.3.579.2.462 Unknown [id number] 2.16.840.1.688590.3.579.2.462 Unknown [id number] 2.16.840.1.074293.3.579.2.462 Unknown [id number] 2.16.840.1.745858.3.579.2.462 Unknown [id number] 2.16.840.1.425724.3.579.2.462 Unknown [id number] 2.16.840.1.062204.3.579.2.462 Social History Date Type Detail Facility Start: 10-19-1992 End: 12-01-2024 Tobacco smoking status VAIS Smokes tobacco daily [facility] Start: 10-19-1992 End: 10-19-2022 History of tobacco use Cigarette Smoker [facility] Start: 07-05-2019 End: 03-30-2023 Cigarettes smoked current (pack per day) - Reported 0.[address] [facility] Start: 07-05-2019 End: 12-01-2024 Tobacco use and exposure Smokeless tobacco non-user [facility] Start: 07-18-2021 End: 05-31-2025 Alcohol intake Ex-drinker (finding) [facility] Start: 03-26-2021 History SDOH Alcohol Comment Alcoholic - November 2020 - last drink [facility] Start: 1965 Sex Assigned At Not on file [facility] Start: 03-03-2022 End: 01-19-2024 Tobacco smoking status VAIS Unknown if ever smoked [facility] Start: 01-22-2021 Heavy [facility] Start: 01-22-2021 Marijuana [facility] Start: 02-01-2019 Alone [facility] Start: 01-22-2021 Cigarettes [facility] Start: 1965 Sex Assigned At Female [facility] Start: 03-11-2022 End: 05-27-2022 Exposure to SARS-CoV-2 (event) Not sure [facility] Start: 10-21-2022 Tobacco use and exposure User of smokeless tobacco [facility] Start: 11-11-2022 End: 04-16-2025 Tobacco smoking status NHIS Ex-smoker [facility] Work Phone: Start: 10-19-1992 End: 10-19-2022 History of tobacco use Current smoker [facility] Work Phone: Start: 03-30-2023 End: 04-15-2023 Tobacco use panel [facility] Start: 08-29-2012 Adult Depression Screening Assessment [address] [facility] Start: 12-04-2024 End: 07-10-2025 Tobacco smoking status NHIS Current Heavy tobacco smoker [facility] Start: 12-04-2024 End: 01-01-2025 Sex Female (finding) [facility] Start: 12-24-2024 End: 02-26-2025 Tobacco smoking status NHIS Current some day smoker [facility] Has the [employer] Reviewed, oil, or water company threatened to shut off services in your home in past 12Mo No [facility] (I/We) worried tara er (my/our) food would run out before (I/we) got money to buy more. Never true [facility] Start: 05-10-2025 Tobacco smoking stat us VAIS Current Light tobacco smoker [facility] Medical Equipment Procedure Code Equipment Code Equipment Origin al Text Equipment Identifier Dates Total cholecystectomy with exploration of common bile duct [id number] FDA Start: 06-14-2021 ERCP (endoscopic retrograde cholangiopancreatograp hy) ([id number]) [id number] FDA Start: 07-06-2025 Stent Zimmon 7fr Duodenal Pigtail Curve Purple Polyethylene 11cm Pancreatic - [id number] Start: 03-10-2025 Goals Date Patient Goal Desired Activity /State Functional Status Date Assessment Result Facility 04-19-2025 Functional status Ambulates;Up ad denise [facility] Work Phone: 04-19-2025 Functional status None [facility] Work Phone: 03-23-2025 Are you deaf, or do you have serious difficulty hearing No 03/23/2025 5:10 PM EDT Kerri Aaron RN No [facility] 03-23-2025 Are you blind, or do you have serious difficulty seeing, even when wearing glasses No 03/23/2025 5:10 PM Kerri Hardin RN No [facility] 03-23-2025 Do you have serious difficulty walking or climbing stairs No 03/23/2025 5:10 PM Kerri Hardin RN No [facility] 03-23-2025 Do you have difficul ty dressing or bathing No 03/23/2025 5:10 PM Kerri Hardin RN No [facility] 03-23-2025 Because of a physica l, mental, or emotional condition, do you have difficulty doing errands alone such as visiting a physician's office or shopping No 03/23/2025 5:10 PM Kerri Hardin RN No [facility] 03-15-2025 Functional status Bedrest [facility] Work Phone: 12-12-2024 Functional status Ambulates;Bath room Privilege [facility] Work Phone: 12-08-2024 Functional status Bedrest [facility] Work Phone: 01-05-2024 Functional status Ambulates [facility] Work Phone: 11-07-2022 Functional status Ambulates [facility] Work Phone: 02-02-2015 Are you deaf, or do you have serious difficulty hearing No 02/02/2015 9:44 AM Alondra Mackenzie RN No [facility] 02-02-2015 Are you blind, or do you have serious difficulty seeing, even when wearing glasses No 02/02/2015 9:44 AM Alondra Mackenzie RN No [facility] 02-02-2015 Do you have serious difficulty walking or climbing stairs No 02/02/2015 9:44 AM Alondra Mackenzie RN No [facility] 02-02-2015 Do you have difficul ty dressing or bathing No 02/02/2015 9:44 AM Alondra Mackenzie RN No [facility] 02-02-2015 Because of a physica l, mental, or emotional condition, do you have difficulty doing errands alone such as visiting a physician's office or shopping No 02/02/2015 9:44 AM EDT Alondra Otto RN No [facility] Functional observable [facility] Mental Status Date Assessment Result Facility 07-06-2025 Cognitive function Light Pain [facility] Work Phone: 07-06-2025 Cognitive function Person [facility] Work Phone: 04-19-2025 Cognitive function Voice/Name [facility] Work Phone: 03-23-2025 Because of a physica l, mental, or emotional condition, do you have serious difficulty concentrating, remembering, or making decisions No 03/23/2025 5:10 PM EDT Kerri Aaron RN [facility] 03-15-2025 Cognitive function Unable to Comprehend [facility] Work Phone: 03-15-2025 Cognitive function Voice/Name [facility] Work Phone: 12-12-2024 Cognitive function Voice/Name [facility] Work Phone: 12-11-2024 Cognitive function Appropriate;Cooperativ e [facility] Work Phone: 12-08-2024 Cognitive function Voice/Name [facility] Work Phone: 01-19-2024 Cognitive function Level Of Cons ciousness Awake;Alert;Appropriate [facility] Work Phone: 01-05-2024 Cognitive function Voice/Name [facility] Work Phone: 06-02-2023 Cognitive function Level Of Cons ciousness Awake;Alert;Appropriate;Fol lows Commands [facility] Work Phone: 11-07-2022 Cognitive function Voice/Name [facility] Work Phone: 10-24-2022 Cognitive functi ons :06 [facility] 02-02-2015 Because of a physica l, mental, or emotional condition, do you have serious difficulty concentrating, remembering, or making decisions No 02/02/2015 9:44 AM CARINAT Alondra Otto RN No [facility] Clinical Notes 01-10-2021 to 07-06-2025 Note Date & Type Note Facility 07-06-2025 Procedure note [facility] 07-06-2025 Procedure note [facility] 07-06-2025 Radiology Diagnostic study note [facility] 07-06-2025 Radiology Diagnostic study note [facility] 07-06-2025 History and physi anay note Note Date/Time July 06, 2025 10:38am [facility] Medical Records Department [address] [place] [address] History & Physical Exam 07/06/25 1036 MR#: [id number] Acct: [id number] Name: GRACIE BANUELOS Rep #:[id number] : 1965 60 From: Marshal Friend PCP: Dr. Misbah Elkins MD Status:REG S LA Location: [place] [address] HPI - General General Date of Admission: 07/06/25 Date of Service: 07/06/25 Chief Complaint: Chronic pancreatitis HPI Narrative GRACIE BANUELOS, is a 60 F who presents [Chief Complaint: chornic pancreatits [facility] admission 12.04.24-12.12.24 due to acute on chronic [...] with pain management in January at the [facility] ERCP at [facility] 03.10.25 major papilla appeared normal. [...] ERCP in 4 months to remove stent. [facility] admission -03.16.25 With epigastric pain. Hx of chronic pancreatitis from alcohol abuse. Pt seen by GI specialist at [facility] during recent admissions Underwent endoscopy with pancreatitis stent placement. Now presenting with worsening epigastric pain. Adept to transfer to but beds unavailable. Pt intubated 03.15.25 due to respiratory failure [facility] admission 04.16.[address] showing acute on chronic pancreatitis. Admitted for pain Control OV 04.26.25 patient here today for hospital follow-up after 2 instances of acute on chronic pancreatitis. Patient first presented to [facility] ED on March 13, 2025 2 days after ERCP with pancreatic stent placement at the [facility]. Patient presented with epigastric pain she was [...] Other specified postprocedural states ] [facility] Medical History Wears glasses Wears dentures [...] pain 5 Unknown History OXYGEN - Supplemental ([facility] 5 l intranasal CONT 5 Unknown History INFORMATIONAL USE ONLY) Allergy/AdvReac Type Severity Reaction Status Date / Time clindamycin Allergy Intermediate Hives Verified 07/06/25 09:43 Penicillins Allergy Hives Verified 07/06/25 09:43 sulfamethoxazole (From Allergy Other Verified 07/06/25 09:43 Bactrim) trimethoprim (From Bactrim) Allergy Other Verified 07/06/25 09:43 hydrocodone (From [place]) AdvReac Itching Verified 07/06/25 09:43 Family History [...] months patient has had 2 admissions to [facility] for acute on chronic pancreatitis. Patient underwent ERCP with pancreatic stent placement and stone removal in February 2025 at the [facility]. Following this procedure she presented to [facility] EDwith an elevated lipase and was diagnosed with post ERCP acute on chronic pancreatitis. She was admitted for management and subsequently developed respiratory failure and was intubated in the ICU. Patient responded to treatment and is eventually extubated and discharged home. She again presented to [facility] ED April 16 with epigastric pain and elevated lipase. She was admitted for management of acute on chronic pancreatitis once again. Per ERCP report from Dr. Portillo at the [facility], she will need to undergo repeat ERCP in 4 months for removal of pancreatic stent. She would prefer to keep her care in [place] as traveling to [place] is difficult. She was scheduled for repeat [...] Misbah Elkins MD; Marshal Segura DO~ Signed [facility] Work Phone: 1(585) 771-123010-09-2025 Consult note Author Terence Prater [facility] Note Date/Time July 06, 2025 9: 37am [facility] Medical Records Department [address] [place] [address] Pre-Anesthesia Evaluation 07/06/25 0935 MR#: [id number] Acct: [id number] Name: GRACIE BANUELOS Rep #:[id number] : 1965 60 From: Terence Prater MD PCP: Dr. Misbah Elkins MD Status:REG S DC Y Race: C Location: [place] [address] ASA Classification* ASA Classification ASA Classification: 3 [...] ERCP rem Anesthesia History Anesthesia History - pulverizer: Anesthesia History - pulverizer Hx Hospitalization Yes: 3X, 5-25 ON VENTILATOR [...] take am of surgery PONV PONV - pulverizer: PONV - pulverizer Female Yes 07/04/25 09:29 HX of Motion [...] 04/17/25 14:06 Respiratory Assessment Respiratory Assessment - pulverizer: Respiratory Tract Infection Hx - pulverizer Hx Respiratory Tract Infection No 07/04/25 09:29 STOP Sleep Apnea STOP Sleep Apnea - pulverizer: STOP Sleep Apnea - pulverizer Hx Hypertension Yes 07/04/25 09:29 Hx Sleep [...] Tobacco Use History Tobacco Use History - pulverizer: Tobacco Use History - pulverizer Tobacco Use Cigarettes 01/22/21 20:43 Smoking Status Light Smoker (<10/day) 07/04/25 09:29 Hx Tobacco Use Yes 07/04/25 09:29 Years Smoking 50 07/04/25 09:29 Packs Smoked per Day 1 07/04/25 09:29 Smoking Cessation Date was within the last 15 years Hx Smoking Cessation Date Hx Smoking Cessation No 07/04/25 09:29 Counseling Hematologic Medial History Hematologic Hx - pulverizer: 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 Hx of Blood Transfusion No 07/04/25 09:29 [...] confused, unrespo /Reproduction History /Reproductive History - pulverizer: /Reproductive Hx- pulverizer Hx Now No 07/04/25 09:29 Gestational Age (in weeks): EDC: Hx Hx Para Hx Section SAB No 07/04/25 09:29 Active Medications Active Medications: Current Medications Generic Name Dose Route Start Last Admin Trade Name Freq PRN Reason Stop Dose Admin Lactated Ringer's 1,000 mls @ 15 mls/hr 07/06/25 09:30 [facility] Medical History Wears glasses Wears dentures [...] Allergy Other Verified 07/04/25 09:19 hydrocodone (From [place]) AdvReac Itching Verified 07/04/25 09:19 Family History [...] MD > Date _ [facility]ater [facility] Signature: Date CC: ~ Signed [facility] Work Phone: 1(244) 159-432710-09-2025 [facility]09-17-2025 Telephone encounter Note* Telephone Encounter - Soila Easton APRN.CNP - 06/14/2025 10:26 AM EDT [facility] All prescriptions have been APPROPRIATELY filled. No suspiciousactivity was identified. 06/14/2025 by Soila Easton APRN.CNP [facility]09-17-2025 Miscellaneous Notes* Telephone Encounter - Soila [...] states she will see pain management at [facility] on 06/19/2025 Please call patient to discuss the need for this Tramadol Patient has been identified by name and birthdate. Duration of symptoms: ongoing Person calling: self Call patient at: on cell [phone] (home) [phone] (cell) Was an appointment scheduled: Urmila Estes documented in this [facility] Telephone encounter Note * Telephone Encounter - Eva Martines RN - 06/13/2025 10:37 AM EDT Patient calling about this request. Patient also asking for a call back if medication is approved. Eva Martines RN [facility]09-15-2025 Telephone encounter Note* Telephone Encounter - [...] for nausea/vomiting. Mihaela Cheng RN [facility]09-15-2025 Telephone encounter Note* Telephone Encounter - Jordana Zayas - 06/12/2025 12:38 PM EDT Gracie is calling Soila Easton APRN.CNP today to request a medication for patient pancreas? Patient asking for Tramadol? This medication is not on current medication list. Patient states she will see pain management at [facility] on 06/19/2025 Please call patient to discuss the need for this Tramadol Patient has been identified by name and birthdate. Duration of symptoms: ongoing Person calling: self Call patient at: on cell [phone] (home) [phone] (cell) Was an appointment scheduled: Urmila Estes [facility]09-03-2025 Instructions* Patient Instructions* Soila Easton APRN.CNP [...] pancreatic stent. documented in this encounterMer[facility] St. [facility]09-03-2025 NoteHNO ID: [id number] Author: SOILA EASTON APRN.CNP Service: ? Author Type: Nurse Practitioner Type: Progress Notes Filed: 05/31/2025 13:42 Note Text: CC: Patient presents with: Recheck: 1 month follow up HPI Gracie Banuelos is a 60 year old female who presents today for follow up on chronic pancreatitis, COPD, and pain., Recording using ambient MessageParty software for draft documentation of the visit was discussed with the patient/authorized personal banking representative; all questions welcomed and answered. Patient/authorized personal banking representative agreed to proceed Chronic Pancreatitis: - Gracie Banuelos was hospitalized in March for pancreatitis; stent placed, still in situ. - Followed by Dr. Segura at [facility]; stent removal planned for June. - [...] mouth daily at bedt (more content not included)...[facility]09-03-2025 History of Present illness Narrative* Soila Easton APRN.PROPERTY DISPOSAL OFFICER - 05/31/2025 10:49 AM EDT CC: Patient presents with: Recheck: 1 month follow up HPI Gracie Banuelos is a 60 year old female who presents today for follow up on chronic pancreatitis, COPD, and pain., Recording using Physitrack software for draft documentation of the visit was discussed with the patient/authorized personal banking representative; all questions welcomed and answered. Patient/authorized personal banking representative agreed to proceed Chronic Pancreatitis: - Gracie Banuelos was hospitalized in March for pancreatitis; stent placed, still in situ. - Followed by Dr. Segura at [facility]; stent removal planned for June. - [...] (HCC) COPD (chronic obstructive pulmonary disease) ([facility]) 05/25/2012 DDD (degenerative disc disease), cervical 09/03/2018 [...] infectious organism 2017 Severe protein-calorie malnutrition ([facility]) 01/07/2019 Stage 3 severe COPD by GOLD classification ([facility]) 2018 Tobacco use greater than 30 years [...] Oct 2019 documented in [address] [facility]08-[facility]-2025 Telephone encounter Note * Telephone Encounter [...] complete her cholesterol lab first. [facility]08-23-2025 Miscellaneous Notes* Telephone Encounter - Mike [...] Elkins MD documented in this encounterMer[facility] Health St. [facility]08-22-2025 Telephone encounter Note * Telephone Encounter - Soila Easton APRN.CNP - 05/19/2025 3:36 PM EDT I have sent tramadol as requested. Thank you Soila Easton APRN.IGOR PDMP website checked and validated. All prescriptions have been APPROPRIATELY filled. No suspiciousactivity was identified. 05/19/2025 by Soila Easton APRN.CNP [facility]08-22-2025 Miscellaneous Notes* Telephone Encounter - Soila [...] having pain. Please phone pt with reply. [phone] * Telephone Encounter - Eva Martines RN [...] thinks she is seeing pain mgmt at [facility] on 05/26/25. She will check and call [...] 10:12 AM documented in this encounterMer[facility]. [facility]08-22-2025 Telephone encounter Note * Telephone Encounter - Eileen Chavez MA - 05/19/2025 11:04 AM EDT Patient notified, please assist in scheduling. [facility]08-22-2025 Telephone encounter Note* Telephone Encounter - Mike Phan RN - 05/19/2025 10:29 AM EDT Pt asking if provider is going to send a pain medication to her pharmacy? States she is having pain. Please phone pt with reply. [phone] 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 Please assist patient in scheduling Regards, Misbah Elkins MD [facility]08-21-2025 Telephone encounter Note* Telephone Encounter - Eva Martines RN - 05/18/2025 4:54 PM EDT Patient calls and states that she see pain management on 05/24/2025. Patient has appointment with Soila on 05/26/2025. Patient states that she is out of pain medications and is needing one. Eva Martines RN [facility]08-21-2025 Telephone encounter Note* Telephone Encounter - Mike Phan RN - 05/18/2025 4:43 PM EDT Pt checking on refill request and given provider's message below with verbalized understanding. Pt reports she thinks she is seeing pain mgmt at [facility] on 05/26/25. She will check and call back to let provider know. Pt reports she is scheduled with Dr. Segura in Jun. Pt thinks she is having surgery in Jun to remove the stent from her pancreas. Pt asking provider to fill one of the requested Rx's. States she doesn't care which one as long as she gets one of them. [facility]08-21-2025 Telephone encounter Note* Telephone Encounter - [...] seeing one? Thank you Soila Easton APRN.IGOR [facility]08-20-2025 Telephone encounter Note* Telephone Encounter - [...] Holly Jensen May 17, 2025 10:[address] [facility]08-19-2025 Telephone encounter Note* Telephone Encounter - [...] May 16, 2025 10:[address] [facility]08-19-2025 Miscellaneous Notes* Telephone Encounter - Mike [...] 10:34 AM documented in this encounterMercy Health St. [facility]08-13-2025 Radiology Diagnostic study [facility]08-12-2025 NotePatient Outreach (INTMMN) GRACIE BANUELOS ([id number]) 1965 F Date Time Provider Department 05/09/25 [...] [E78.5] Order(s):LIPID PANEL, FASTING [SQLIPB] Order #: [id number] FUTURE Prescriptions as of 05/12/2025 - albuterol [...] stress female [N39.3] 11/24/2014 HPV test positive [NPZ4624] 11/24/2014 Alcohol dependence in remission (HCC) [F10.21] [...] EPIC, PRODUSER on (more content not included)... [facility]08-11-2025 Consult note Author Terence Prater [facility] Note Date/Time July 06, 2025 1: 02pm [facility] Medical Records Department [address] [place] [address] Anesthesia Postop Eval II 07/06/25 1232 MR#: [id number] Acct: [id number] Name: GRACIE BANUELOS Rep #:[id number] : 1965 60 From: Terence Prater MD PCP: Dr. Misbah Elkins MD Status:REG S DC Y Race: C Location: [place] [address] Anesthesia Postop Eval I Sum Postop Eval [...] MD > Date _ Terence Prater MD [facility] Signature: Date CC: ~ Signed [facility] Work Phone: 1(592) 939-374807-31-2025 Radiology Diagnostic study [facility]07-30-2025 Telephone encounter Note* Telephone Encounter - Caroline Miller RN - 04/26/2025 8:23 AM EDT Called pt and she said she already picked up the Tramadol. [facility]07-30-2025 Miscellaneous Notes* Telephone Encounter - Caroline [...] the ER. documented in this encounterMercy Health St. [facility]07-29-2025 NoteHNO ID: [id number] Author: MISBAH ELKINS MD Service: ? Author Type: Physician Type: Progress Notes Filed: 04/25/2025 22:28 Note Text: Reason for Visit Follow up HPI Gracie Banuelos is a 59-year-old female with a history of chronic pancreatitis, COPD, and anxiety, presenting for follow-up after a recent hospitalization for acute pancreatitis. Gracie was admitted to the hospital on 04/16/2025 and discharged on 04/19/2025, at [facility], following an episode of acute pancreatitis. She [...] placement and removal of multiple stones at [facility] in [place] on 03/10/2025. During her recent hospitalization, a [...] chronic pancreatitis and pancreatic stent placement at [facility] on 03/10/2025. She reports ongoing pain [...] pain management. She is also taking an xuzm-ohg-ulrnrge medication called Ease to manage constipation associated with opioid use. Gracie expresses concern about her blood pressure readings, which she reports are high in one arm and low in the other. She was told by her doctors that she might have a blood clot and is requesting a referral to a sub acute care nurse for further evaluation. She also reports dryness [...] mirtazapine (REMERON) 45 mg (more content not included)...[facility]07-29-2025 History of Present illness Narrative* Misbah Elkins MD - 04/25/2025 10:01 PM EDT Reason for Visit Follow up HPI Gracie Banuelos is a 59-year-old female with a history of chronic pancreatitis, COPD, and anxiety, presenting for follow-up after a recent hospitalization for acute pancreatitis. Gracie was admitted to the hospital on 04/16/2025 and discharged on 04/19/2025, at [facility], following an episode of acute pancreatitis. She [...] placement and removal of multiple stones at [facility] in [place] on 03/10/2025. During her recent hospitalization, a [...] chronic pancreatitis and pancreatic stent placement at [facility] on 03/10/2025. She reports ongoing pain [...] forpain management. She is also taking an irno-qjp-ushiqdr medication called Ease to manage constipation associated with opioid use. Gracie expresses concern about her blood pressure readings, which she reports are high in one arm and low in the other. She was told by her doctors that she might have a blood clot and is requesting a referral to a sub acute care nurse for further evaluation. She also reports dryness [...] excuse any unintended typographical errors. Recording using Physitrack software for draft documentation of the visit was discussed with the patient/authorized personal banking representative; all questions welcomed and answered. Patient/authorized personal banking representative agreed to proceed Misbah Elkins MD documented in this encounterMer[facility]07[facility]25 Telephone encounter Note * Telephone Encounter - Misbah Elkins MD - 04/25/2025 7:03 PM EDT I [facility] Regards, Misbah Elkins MD [facility]07-29-2025 Telephone encounter Note* Telephone Encounter - [...] togo back to the ER. [facility]07-26-2025 Telephone encounter Note* Telephone Encounter - Caroline Miller RN - 04/22/2025 9:16 AM EDT LM pt has a script at the pharmacy. [facility]07-26-2025 Miscellaneous Notes* Telephone Encounter - Caroline [...] Staff do you see anything or does [facility] Er not have connection to oarrrs? Regards, Misbah Elkins MD * Telephone Encounter - Kiana Christy - 04/20/2025 8:57 AM EDT Patient calling in to let office know she was just discharged from [facility]. She made an appt to see on 04/25, however she states they gave her oxycodone to help with her pain, and she only has 4left. She is wondering if she is able to get another refill. Please review and advise. Kiana Christy April 20, 2025 8:59 AM documented in this encounterMer[facility]07-25-2025 Telephone encounter Note * Telephone Encounter - Juan Borjas MA - 04/21/2025 11:44 AM EDT Unable to reach patient. Left VM to return call to office. Please read below and advise. Juan Borjas MA [facility]07-25-2025 Telephone encounter Note* Telephone Encounter - Misbah Elkins MD - 04/21/2025 11:05 AM EDT I will not be able to refill except for 10 pills. Thank you [facility]07-25-2025 Telephone encounter Note* Telephone Encounter - Juan Borjas MA - 04/21/2025 8:45 AM EDT Images from the original note were not included. Reconcile dispense list shows a fill of Oxycodone HCL 5 MG qty: 10 tablets on 04/19/25. Juan Borjas MA [facility]07-24-2025 Telephone encounter Note* Telephone Encounter - Misbah Elkins MD - 04/20/2025 4:49 PM EDT [facility] does not show that she got any oxycodoe Staff do you see anything or does [facility] Er not have connection to oarrrs? Regards, Misbah Elkins MD [facility]07-24-2025 Telephone encounter Note* Telephone Encounter - WestleyJazz harringtonyenne Olivier - 04/20/2025 8:57 AM EDT Patient calling in to let office know she was just discharged from [facility]. She made an appt to see on 04/25, however she states they gave her oxycodone to help with her pain, and she only has 4left. She is wondering if she is able to get another refill. Please review and advise. Kiana Christy April 20, 2025 8:[address] [facility]07-23-2025 [facility]07-23-2025 Consult note Author Lexy Milan [facility] Note Date/Time April 19, 2025 1:16 pm [facility] Medical Records Department [address] [place] [address] Counseling Note - Pharmacy 04/19/25 1031 MR#: [id number] Acct: [id number] Name: GRACIE BANUELOS Rep #:[id number] : 1965 59 From: Lexy Milan PCP: Dr. Misbah Elkins MD Status:ADM I N Y Location: [place] [address] Pharmacy [facility] Counseling Pharmacy Service has performed discharge medication [...] Signature (if applicable): Date CC: ~ Signed [facility] Work Phone: 1(166) 972-910307-23-2025 Discharge summary Author Sudhir Izquierdo [facility] Note Date/Time April 19, 2025 9:33 am [facility] Medical Records Department [address] [place] [address] Instructions for Home/Discharge Instructions 04/19/25 0907 MR#: [id number] Acct: [id number] Name: GRACIE BANUELOS Rep #:[id number] : 1965 59 From: Sudhir pace MD [...] DO; Dr. Bert Greenwood MD ~ Signed [facility] Work Phone: 1(407) 562-660907-22-2025 Progress note Author Sudhir Izquierdo [facility] Note Date/Time April 18, 2025 5:53 pm [facility] Medical Records Department [address] [facility] [place] [address] Progress Note - Hospitalist 04/18/25 1744 MR#: [id number] Acct: [id number] Name: GRACIE BANUELOS Rep #:[id number] : 1965 59 From: Sudhir pace MD PCP: Dr. Misbah Elkins MD Status:ADM I N Location: [place] [address] Subjective Subjective History of chronic pancreatitis continue [...] % (Auto) 60.1, Lymph % (Auto) 23.8, [place] % (Auto) 7.0, Eos % (Auto) 8.1 [...] DVT: Lovenox Charges/Coding Visit Charges Inpatient E&M: 22435 Subs Hosp L2 04/18/25 1753 <Electronically signed by Sudhir Izquierdo MD> Cosigner Signature (if applicable): CC: ~ Signed [facility] Work Phone: 1(400) 212-792707-21-2025 Progress note Author Bert Greenwood [facility] Note Date/Time April 17, 2025 4:43 pm [facility] Medical Records Department [address] [place] [address] Progress Note - Hospitalist 04/17/25 1640 MR#: [id number] Acct: [id number] Name: GRACIE BANUELOS Rep #:[id number] : 1965 59 From: Bert Nixon PCP: Dr. Misbah Elkins MD Status:ADM I N Location: [place] [address] Reason for Visit Chief Complaint: Abdominal Pain. [...] (Auto) 69.0, Lymph % (Auto) 16.6 L, [place] % (Auto) 8.3, Eos % (Auto) 5.0, [...] respiratory failure, intubation and then transferred to [facility]. Patient is very concerned of fluid overload at this time. She complained of pain 7-8 in right lower quadrant though she is tender all over. No fever. She had a pancreatic stent in the past in [facility] by Dr. Portillo. She also [...] stent on 03/11/[address] Portillo in [facility]. She was discharged on 03/15/transferred to [facility]. 1. Acute on chronic pancreatitis: CT [...] (Auto) 72.4 H, Lymph % (Auto)14.6 L, [place] % (Auto) 7.0, Eos % (Auto) 4.9, [...] Clarity Clear, Urine pH 7.0, Ur Specific [place] 1.005, Urine Protein 15 H, Urine Glucose [...] 74.2 H, Lymph % (Auto) 14.2 L, [place] % (Auto) 7.0, Eos % (Auto) 3.7, [...] Std Deviation 46.7 H, RDW Coeff of Imn 14.9 H, Plt Count 310, MPV 10.3, Immature Gran % (Auto) 0.600, Neut % (Auto) 69.0, Lymph % (Auto) 16.6 L, [place] % (Auto) 8.3, Eos % (Auto) 5.0, [...] 90 H Charges/Coding Visit Charges Inpatient E&M: 29038 Subs Hosp L2 04/17/25 1643 <Electronically signed by Bert Greenwood MD> Cosigner Signature (if applicable): CC: ~ Signed [facility] Work Phone: 1(269) 187-953807-20-2025 Progress note Author Bert Greenwood [facility] Note Date/Time April 16, 2025 3:27 pm [facility] Medical Records Department [address] [place] [address] Progress Note - Hospitalist 04/16/25 1503 MR#: [id number] Acct: [id number] Name: GRACIE BANUELOS Rep #:[id number] : 1965 59 From: Bert Nixon PCP: Dr. Misbah Elkins MD Status:ADM I N Location: [place] [address] Reason for Visit Chief Complaint: Abdominal Pain. [...] (Auto) 72.4 H, Lymph % (Auto)14.6 L, Hern[place] % (Auto) 7.0, Eos % (Auto) 4.9, [...] Clarity Clear, Urine pH 7.0, Ur Specific [place] 1.005, Urine Protein 15 H, Urine Glucose [...] 74.2 H, Lymph % (Auto) 14.2 L, Hernando % (Auto) 7.0, Eos % (Auto) 3.7, [...] in the pancreatic head/uncinate process. Reading Location: [place] [address] Physical Exam Narrative Seen and examined. Admitted for acute on chronic pancreatitis She was admitted last time in second week of February and at that time she had a fluid overload resulting into respiratory failure, intubation and then transferred to [facility]. Patient is very concerned of fluid overload at this time. She complained of pain 7-8 in right lower quadrant though she is tender all over. No fever. She had a pancreatic stent in the past in [facility] by Dr. Portillo. She also [...] stent on 03/11/[address] Portillo in [facility]. She was discharged on 03/15/transferred to [facility]. 1. Acute on chronic pancreatitis: CT [...] mg daily per hour with clear liquid. [place] criteria is 2 point though LDH not [...] (Auto) 72.4 H, Lymph % (Auto)14.6 L, [place] % (Auto) 7.0, Eos % (Auto) 4.9, [...] Clarity Clear, Urine pH 7.0, Ur Specific [place] 1.005, Urine Protein 15 H, Urine Glucose [...] 74.2 H, Lymph % (Auto) 14.2 L, [place] % (Auto) 7.0, Eos % (Auto) 3.7, [...] TSH 1.340 Charges/Coding Visit Charges Inpatient E&M: 67884 Subs Hosp L2 04/16/25 1527 <Electronically signed by Bert Greenwood MD> Cosigner Signature (if applicable): CC: ~ Signed [facility] Work Phone: 1(251) 977-855007-20-2025 History and physical note Author Jackson Chopra [facility] Note Date/Time April 16, 2025 6:01 am [facility] Medical Records Department [address] [place] [address] H&P Exam - Hospitalist 04/16/25 0049 MR#: [id number] Acct: [id number] Name: GRACIE BANUELOS Rep #:[id number] : 1965 59 From: Jackson Holcomb DO PCP: Dr. Misbah Elkins MD Status:ADM I N [facility] - General General Date of Admission: [...] pancreatitis, history of pancreatic stent placement at [facility] on March 10, 2025 with patient inthe process of transferring her care to Dr. Segura of gastroenterology here, history of stenosis of Left subclavian artery, chronic anemia, depression with anxiety; on aripiprazole and mirtazapine, GERD; on pantoprazole and OA; with chronic back pain on meloxicam and as needed tramadol every 6 hours who presentsto [facility] ER complaining of abdominal pain. Ms. [...] intermittent pain since her recent treatment at [facility] thatincluded pancreatic duct placement with [...] of the abdomen and pelvis which revealed Cwwgm-is-Gmpkeik Pancreatitis in the pancreatic head/uncinate process with corresponding laboratory evidence of elevated lipase of 239 units/L and Leukocytosis of 18.9 Kpresent on admission complicated by Hypertensive Urgency with elevated blood pressure of 194/71 mmHg noted shortly after admission. She was then admitted tot general medical floor for ongoing care for state that is expected to extend beyond 2 midnights. [facility] Medical History (Updated 04/16/25 @ 01:24 [...] Allergy Other Verified 04/15/25 22:49 hydrocodone (From [place]) AdvReac Itching Verified 04/15/25 22:49 Family History [...] (Auto) 72.4 H, Lymph % (Auto)14.6 L, [place] % (Auto) 7.0, Eos % (Auto) 4.9, [...] Clarity Clear, Urine pH 7.0, Ur Specific [place] 1.005, Urine Protein 15 H, Urine Glucose [...] in the pancreatic head/uncinate process. Reading Location: [place] [address] Assessment & Plan Assessment/Plan (1) Acute on [...] of the abdomen and pelvis which revealed Agoll-xx-Fsddbds Pancreatitis inthe pancreatic head/uncinate process with corresponding laboratory evidence of elevated lipase of 239 units/L - Admit to general medical floor. Keep strict NPO. Give pantoprazole 40 mg IV daily. Give ondansetron IV as needed nausea vomiting. Give promethazine IM as needed for breakthrough nausea. Give ketorolac IV for sfdp-ss-nfuogsdp (level 1-5/10) pain or fever. Give morphine [...] 4. History of pancreatic stent placement at [facility] on March 10, 2025 with [...] 75 minutes. Charges/Coding Visit Charges Inpatient E&M: 96342 Init Hosp L3 04/16/25 0601 <Electronically signed by Jackson Monk DO> Cosigner Signature (if applicable): CC: Dr. Misbah Elkins MD; Dr. Jackson Monk DO~ Signed [facility] Work Phone: 1(501) 578-334307-20-2025 Discharge summary Author Erik Gomez [facility] Note Date/Time April 16, 2025 12:5 6am [facility] Medical Records Department [address] [place] [address] Emergency Department Summary 04/15/25 MR#: [id number] Acct: [id number] Name: GRACIE BANUELOS Rep #:[id number] : 1965 59 From: Erik Gomez MD [...] stent put in on March 10 at [facility], it was placed due [...] had a cigarette in over 2 weeks. [facility] Medical History Encounter for replacement [...] Allergy Other Verified 04/15/25 22:49 hydrocodone (From [place]) AdvReac Itching Verified 04/15/25 22:49 Family History [...] 72.4 H Lymph % (Auto) 14.6 L [place] % (Auto) 7.0 Eos % (Auto) 4.9 [...] Clarity Clear Urine pH 7.0 Ur Specific [place] 1.005 Urine Protein 15 H Urine Glucose [...] in the pancreatic head/uncinate process. Reading Location: [place] [address] Management Discussion w/another healthcare provider: Hospitalist Discharge Plan Dx/Rx/DC Orders Clinical Impression: Acute on chronic pancreatitis, Presence of pancreatic duct stent Disposition Disposition: Acute Care Hospital [facility] What to do if you have Problems For any increased pain, shortness of breath, bleeding, nausea or vomiting, chestpain, or any unexpected problems, contact your Primary Care Provider. Call [facility] ([phone]) or report to the closest Emergency Room. Call 911 if necessary. 04/16/25 0056 <Electronically signed by Erik Gomez MD> Cosigner Signature (if applicable): CC: Dr. Misbah Elkins MD ~ Signed [facility] Work Phone: 1(450) 315-282907-20-2025 Radiology Diagnostic study [facility]07-19-2025 Discharge summary Author Erik Gomez [facility] Note Date/Time April 16, 2025 12:5 6am [facility] Medical Records Department [address] [place] [address] Emergency Department Summary 04/15/25 MR#: [id number] Acct: [id number] Name: GRACIE BANUELOS Rep #:[id number] : 1965 59 From: Erik Gomez MD [...] stent put in on March 10 at [facility], it was placed due [...] had a cigarette in over 2 weeks. [facility] Medical History Encounter for replacement [...] Allergy Other Verified 04/15/25 22:49 hydrocodone (From [place]) AdvReac Itching Verified 04/15/25 22:49 Family History [...] 72.4 H Lymph % (Auto) 14.6 L [place] % (Auto) 7.0 Eos % (Auto) 4.9 [...] Clarity Clear Urine pH 7.0 Ur Specific [place] 1.005 Urine Protein 15 H Urine Glucose [...] in the pancreatic head/uncinate process. Reading Location: [place] [address] Management Discussion w/another healthcare provider: Hospitalist Discharge Plan Dx/Rx/DC Orders Clinical Impression: Acute on chronic pancreatitis, Presence of pancreatic duct stent Disposition Disposition: Acute Care Hospital [facility] What to do if you have Problems For any increased pain, shortness of breath, bleeding, nausea or vomiting, chestpain, or any unexpected problems, contact your Primary Care Provider. Call [facility] ([phone]) or report to the closest Emergency Room. Call 911 if necessary. 04/16/2555 <Electronically signed by Erik Gomez MD> Cosigner Signature (if applicable): CC: Dr. Misbah Elkins MD ~ Signed [facility] Work Phone: 1(594) 503-368007-15-2025 Telephone encounter Note* Telephone Encounter - Yuly France - 04/11/2025 9:33 AM EDT Transitional Care Management ([facility]) [facility] Monitoring Program Provider Action / FYI: na SUMMARY: Outreach type: INITIAL OUTREACH Discharge Network Status: In-Network [facility] Patient discharged from [facility] on 03.23.25. Admitted for acute on chronic respiratory failure with hypoxia. . . . . Contact made with patient: No - 2nd unsuccessful attempt - end outreach and close encounter. Yuly France April 11, 2025 9:[address] [facility]07-15-2025 Miscellaneous Notes* Telephone Encounter - Yuly France - 04/11/2025 9:33 AM EDT Transitional Care Management ([facility]) [facility] Monitoring Program Provider Action / FYI: na SUMMARY: Outreach type: INITIAL OUTREACH Discharge Network Status: In-Network [facility] Patient discharged from [facility] on 03.23.25. Admitted for acute on chronic respiratory failure with hypoxia. . . . . Contact made with patient: No - 2nd unsuccessful attempt - end outreach and close encounter. Yuly France April 11, 2025 9:34 AM documented in 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 Author Type: Nurse Specialist Type: [...] stent placement 03/10. Patient was transferred from [facility]. There she was found to have acute pancreatitis. She had a stent placed in the body of the pancreas however on CT scan at the other hospital she had new peripancreatic inflammation. She was also experiencing acute hypoxic respiratory failure and was emergently intubated and transferred to [facility] ICU. 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 Pancreatic Stent Placement: - Stent placed by Dr. Garrido at [facility]. - Persistent abdominal pain radiating [...] following stent placement led to hospitalization at [facility], then transferred to [facility] due to fluid overload and septic [...] 38.3 37.0 O2 Thera (more content not included)...[facility]07-14-2025 History of Present illness Narrative* Nicolas Greer UNA.MANAGER AUTO - 04/10/2025 1:55 PM EDT Subjective Patient [...] stent placement 03/10. Patient was transferred from [facility]. There she was found to have acute pancreatitis. She had a stent placed in the body of the pancreas however on CT scan at the other hospital she had new peripancreatic inflammation. She was also experiencing acute hypoxic respiratory failure and was emergently intubated and transferred to [facility] ICU. 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 Pancreatic Stent Placement: - Stent placed by Dr. Garrido at [facility]. - Persistent abdominal pain radiating [...] following stent placement led to hospitalization at [facility], then transferred to [facility] due to fluid overload and septic [...] Negative Ketones, Urine Negative 1+ ! Specific [place], Ur 1.005 - 1.030 1.026 Hemoglobin/Blood,Ur Negative [...] pneumonia; required mechanical ventilation. - Follow-up with balance screwhead polisher Dr. Ani Post today; noted mild wheezing [...] duct stent placement by Dr. Garrido at [facility]. - Persistent abdominal pain, described as severe [...] environmental cleaning to prevent transmission. Nicolas Greer APRN.MANAGER AUTO Medical Decision Making: Problems: Moderate: Acute illness with systemic symptoms Data: Unique source(s) for external note(s) reviewed: 1 Unique test result(s) reviewed: 3+ Risk: Moderate: Drug management Medical Decision Making Level: 4 - Moderate documented in this encounterMer[facility] Telephone encounter Note * Telephone Encounter - Sirisha Francebunny - 04/10/2025 9:35 AM EDT Transitional Care Management (TCM) [facility] Monitoring Program Provider Action / FYI: na SUMMARY: Outreach type: INITIAL OUTREACH Discharge Network Status: In-Network Discharge Source of Patient: [facility] TCM Discharge Report Patient discharged from [facility] on 03.23.25. Admitted for acute on chronic respiratory failure with hypoxia. . . . Contact made with patient: No - next outreach attempt will be on next business day. Yuly France April 10, 2025 9:[address] [facility]07-14-2025 Miscellaneous Notes* Telephone Encounter - Yuly France - 04/10/2025 9:35 AM EDT [facility] Provider Action / FYI: na SUMMARY: Outreach type: INITIAL OUTREACH Discharge Network Status: In-Network Discharge Source of Patient: [facility] TCM Discharge Report Patient discharged from [facility] on 03.23.25. Admitted for acute on chronic respiratory failure with hypoxia. . . . Contact made with patient: No - next outreach attempt will be on next business day. Yuly France April 10, 2025 9:37 AM documented in this encounterMer[facility] Telephone encounter Note * Telephone Encounter - Juan Borjas MA - 04/04/2025 4:31 PM EDT Patient r/s to 04/10/25 with TB. Juan Borjas MA [facility]07-08-2025 Miscellaneous Notes* Telephone Encounter - Juan [...] Borjas MA documented in this encounterMer[facility]2025 Telephone encounter Note * Telephone Encounter - Rosy Blancas - 04/04/2025 3:12 PM EDT Transitional Care Management (TCM) [facility] Monitoring [facility] Provider Action / FYI: NA SUMMARY: Outreach type: INITIAL OUTREACH Discharge Network Status: In-Network Discharge Source of Patient: [facility] TCM Discharge Report Patient discharged from [facility] on 03.23.25. Admitted for acute on chronic respiratory failure with hypoxia. . . Contact made with patient: No, for Follow-up - end outreach and close encounter. Rosy Blancas April 04, 2025 3:[address] [facility]07-08-2025 Miscellaneous Notes* Telephone Encounter - Rosy Blancas - 04/04/2025 3:12 PM EDT Transitional Care Management (TCM) [facility] Provider Action / FYI: NA SUMMARY: Outreach type: INITIAL OUTREACH Discharge Network Status: In-Network Discharge Source of Patient: [facility] TCM Discharge Report Patient discharged from [facility] on 03.23.25. Admitted for acute on chronic respiratory failure with hypoxia. . . Contact made with patient: No, for Follow-up - end outreach and close encounter. Rosy Blancas April 04, 2025 3:15 PM documented in this encounterMer[facility]07-[facility] Telephone encounter Note * Telephone Encounter - Nellie Duke - 04/04/2025 2:25 PM EDT Patient unaware that her appt with Milly today was cancelled and she is looking to reschedule, please advise. [facility]07-08-2025 Miscellaneous Notes* Telephone Encounter - Nellie Duke - 04/04/2025 2:25 PM EDT Patient unaware that her appt with Milly today was cancelled and she is looking to reschedule, please advise. documented in this encounterMer[facility]07-[facility]25 Telephone encounter Note * Telephone Encounter [...] with r/s. Juan Borjas MA [facility]07-08-2025 Telephone encounter Note* Telephone Encounter - Yuly France - 04/04/2025 9:45 AM EDT Transitional Care Management (TCM) [facility] Monitoring Program Provider Action / FYI: na SUMMARY: Outreach type: INITIAL OUTREACH Discharge Network Status: In-Network Discharge Source of Patient: [facility] TCM Discharge Report Patient discharged from [facility] on 03.23.25. Admitted for acute on chronic respiratory failure with hypoxia. . Contact made with patient: No - 2nd unsuccessful attempt - end outreach and close encounter. Yuly France April 04, 2025 9:[address] [facility]07-08-2025 Miscellaneous Notes* Telephone Encounter - Yuly France - 04/04/2025 9:45 AM EDT Transitional Care Management (TCM) [facility] Monitoring Program Provider Action / FYI: na SUMMARY: Outreach type: INITIAL OUTREACH Discharge Network Status: In-Network Discharge Source of Patient: [facility] TCM Discharge Report Patient discharged from [facility] on 03.23.25. Admitted for acute on chronic respiratory failure with hypoxia. . Contact made with patient: No - 2nd unsuccessful attempt - end outreach and close encounter. Yuly France April 04, 2025 9:47 AM documented in this encounterMer[facility]07-[facility]-2025 Telephone encounter Note * Telephone Encounter - Juan Bloom LPN - 03/29/2025 3:51 PM EDT VM left on listed number to discuss symptoms. Juan Bloom LPN [facility] Work Phone: 1(193) 658-461107-02-2025 Miscellaneous Notes* Telephone Encounter - Juan Bloom LPN - 03/29/2025 3:51 PM EDT VM left on listed number to discuss symptoms. Juan Bloom LPN * Telephone Encounter - Dayana Bone - 03/29/2025 1:49 PM EDT Patient called the office with concerns about sports book server diarrhea. Patient is not sure if it is nte medication gabapetion or a virus. Patient would like a call back. Please review and advise. Dayana documented in this encounterMer[facility]07-[facility]25 Telephone encounter Note * Telephone Encounter - Dayana Bone - 03/29/2025 1:49 PM EDT Patient called the office with concerns about sports book server diarrhea. Patient is not sure if it is nte medication gabapetion or a virus. Patient would like a call back. Please review and advise. Dayana [facility]07-01-2025 Telephone encounter Note* Telephone Encounter - Herman Nevarez RN - 03/28/2025 1:02 PM EDT Transitional Care Management (TCM) [facility] Monitoring Program Provider Action / FYI: N/A SUMMARY: Outreach type: INITIAL OUTREACH Discharge Network Status: In-Network [facility] Patient discharged from [facility] on 03/23/25. Admitted for acute on chronic respiratory failure with hypoxia. Contact made with patient: No - next outreach attempt will be on next business day. Herman Nevarez RN March 28, 2025 1:[address] [facility]07-01-2025 Miscellaneous Notes* Telephone Encounter - Herman Nevarez RN - 03/28/2025 1:02 PM EDT Transitional Care Management (TCM) [facility] Monitoring [facility] Provider Action / FYI: N/A SUMMARY: Outreach type: INITIAL OUTREACH Discharge Network Status: In-Network Discharge Source of Patient: [facility] TCM Discharge Report Patient discharged from [facility] on 03/23/25. Admitted for acute on chronic respiratory failure with hypoxia. Contact made with patient: No - next outreach attempt will be on next business day. Herman Nevarez RN March 28, 2025 1:04 PM documented in this encounterMercy [facility]06-26-2025 NoteHNO ID: [id number] Author: KERRI AARNO RN Service: Nursing Author Type: Registered Nurse Type: Progress Notes Filed: 03/23/2025 19:49 Note Text: Patient has been discharged from the unit. IV removed with tip intact. Telemetry removed, cleaned and returned. Discharge papers and instructions given to patient. Oxygen tank provided to patient upon discharge.[facility] 03-23-2025 NoteHNO ID: [id number] Author: INNA SEBASTIAN RN Service: Care Management [...] needed Transportation Arrangements Transportation Arrangements: Uber/Lyft (through [employer]) Handoff Communication: Handoff to: Cage Fighter Cage Fighter Name/Phone: misbah elkins Additional Information: N/A Discharge Information Row Name Admission (Current) from 03/15/[facility] in [facility] Durable Medical Equipment Agency [employer] Needed walker delivered to room prior [...] does not have a car. provided patient [facility] transport number to call for transport home. Cm also called [facility] and [employer] will bring a tank to patient today [...] Banuelos DATE: March 23, 2025 TIME: 3:02 [facility]06-26-2025 NoteHNO ID: [id number] Author: AGUSTINA MURRAY CPhT Service: ? Author Type: Napper Grinder Type: Plan of Care Filed: 03/23/2025 14:12 Note Text: PHARMACY BEDSIDE DELIVERY SERVICE Patient Name: Gracie Banuelos The marked outpatient medications were Filled at: [facility] and delivered to the patient's bedside to [...] tablet Commonly known as: DELTASONE Agustina Murray [facility] PAGER: kaur March 23, 2025 2:03 [facility]06-26-2025 NoteHNO ID: [id number] Author: INNA SEBASTIAN RN Service: Care Management [...] therapy on dc. Patient is interested in FOOD AND BEVERAGE ASSISTANT MANAGER, plans to go home with sister and sister can assist in all care. Maribel called insurance about FOOD AND BEVERAGE ASSISTANT MANAGER and CM also provided FOOD AND BEVERAGE ASSISTANT MANAGER information provided 03/21. Patient requesting walker for home going. FOC provided as gianna. Order placed and gianna notified of need. Plan home, CM monitoring for need for increase in o2 at home. Gianna needs notified on day of dc to deliver walker. Order placed. CM will follow. SIGNATURE: Inna Sebastian RN PATIENT NAME: Gracie Banuelos DATE: March 23, 2025 TIME: 8:53 [facility]06-25-2025 NoteHNO ID: [id number] Author: GURJIT RAYO MD Service: Hospital Medicine [...] 1,200 mg ORAL q 12 H Ipratropium [place] 1 spray nasal spray (ATROVENT) 1 spray [...] stent placement 03/10. Patient was transferred from [facility]. There she was found to have acute pancreatitis. She had a stent placed in the body of the pancreas however on CT scan at the other hospital she had new peripancreatic inflammation. She was alsoexperiencing acute hypoxic respiratory failure and was emergently intubated and transferred to [facility] ICU. She required vasopressor support due to [...] aeration - Pulm following (more content not included)...[facility]06-25-2025 NoteHNO ID: [id number] Author: INNA SEBASTIAN RN Service: Care Management [...] therapy on dc. Patient is interested in FOOD AND BEVERAGE ASSISTANT MANAGER, plans to go home with sister and sister can assist in all care. Paient instructed to call insurance about FOOD AND BEVERAGE ASSISTANT MANAGER and FOOD AND BEVERAGE ASSISTANT MANAGER information provided this date. Patient requesting walker [...] Banuelos DATE: March 22, 2025 TIME: 9:46 [facility]06-24-2025 NoteHNO ID: [id number] Author: INNA SEBASTIAN RN Service: Care Management Author Type: Registered Nurse Type: Care Mgt Progress Note Filed: 03/21/2025 11:09 Note Text: CARE MANAGEMENT PROGRESS NOTE SERVICE DATE: 03/21/2025 SERVICE TIME: 11:06 AM LOS: 6 days [place] Given: Yes Level of Care [...] therapy on dc. Patient is interested in FOOD AND BEVERAGE ASSISTANT MANAGER, plans to go home with sister and sister can assist in all care. Paient instructed to call insurance about FOOD AND BEVERAGE ASSISTANT MANAGER and FOOD AND BEVERAGE ASSISTANT MANAGER information provided this date. Patient requesting walker for home going. FOC provided as gianna. Order placed and gianna notified of need. Patient will also call kamini to bring tank to her for discharge and see how high her home concentrator goes (if it goes to 5L or 10L). Plan home, CM monitoring for need for increase in o2 at home. [place] needs notified on day of dc to deliver walker. Order placed. CM will follow. SIGNATURE: Inna Sebastian RN PATIENT NAME: Gracie Banuelos DATE: March 21, 2025 TIME: 11:06 [facility]06-24-2025 Telephone encounter Note* Telephone Encounter - [...] March 21, 2025 8:[address] [facility]06-24-2025 Miscellaneous Notes* Telephone Encounter - Holly [...] 8:57 AM documented in this encounterMer[facility]25 NoteHNO ID: [id number] Author: GURJIT RAYO MD Service: Hospital Medicine [...] stent placement 03/10. Patient was transferred from [facility]. There she was found to have acute pancreatitis. She had a stent placed in the body of the pancreas however on CT scan at the other hospital she had new peripancreatic inflammation. She was alsoexperiencing acute hypoxic respiratory failure and was emergently intubated and transferred to [facility] ICU. She required vasopressor support due to [...] DC vancomycin - Spu (more content not included)...[facility]06-23-2025 NoteHNO ID: [id number] Author: GURJIT RAYO MD Service: Hospital Medicine [...] stent placement 03/10. Patient was transferred from [facility]. There she was found to have acute pancreatitis. She had a stent placed in the body of the pancreas however on CT scan at the other hospital she had new peripancreatic inflammation. She was alsoexperiencing acute hypoxic respiratory failure and was emergently intubated and transferred to [facility] ICU. She required vasopressor support due to septic shock and was noted to have bilateral pneumonia. She was extubated and transferred to the floors. She remained hemodynamically stable off pressors but had increasing oxygen requirements. Acute on chronic hypoxic respiratory failure (more content not included)...[facility]06-23-2025 NoteHNO ID: [id number] Author: INNA SEBASTIAN RN Service: Care Management [...] Banuelos DATE: March 20, 2025 TIME: 8:36 [facility]06-22-2025 NoteHNO ID: [id number] Author: NGUYEN PALACIOS DO Service: Hospital Medicine Author Type: Physician Type: Plan of Care Filed: 03/28/2025 17:20 Note Text: There was a CROSS COUNTRY COACH called on this patient due to elevated [...] to R/O PE. Echo does not show CHF.[facility]06-22-2025 NoteHNO ID: [id number] Author: NGUYEN PALACIOS DO Service: Hospital Medicine [...] 5 L NC. Patient was transferred from [facility]. There she was found to have acute pancreatitis. She had a stent placed in the body of the pancrease however on CT scan at the other hospital she had new peripancreatic inflammation. She was also experiencing acute hypoxic respiratory failure and was emergently intubated and transferred to [facility]. Patient was admitted [facility] ICU. She was on levophed and vasopressin. [...] and Airways Line Duration Peripheral 03/16/25 0000 [facility] Short Right Forearm 18 Gauge 3 days Peripheral 03/16/25 0000 External Facility Short Left Antecubital 20 Gauge 3 days Peripheral 03/16/25 0000 External Facility Short Right Antecubital 20 Gauge 3 days Reviewed lines and needs to be continued: REASONS: Difficulty in obtaining/maintaining access DATA: Diagnostic tests reviewed for today's visit: Most recent labs Most recent imaging Assessment/Virgen (more content not included)...[facility]06-22-2025 Note HNO ID: [id number] Author: AGUSTINA PACHECO, RN Service: Care Management [...] was completed 03/10. She initially presented to [facility] but was a transfer to [facility] following intubation. She is being treated for respiratory failure/PNA/chronic pancreatitis/sepsis.She is being treated with aerosols, IV antibiotics, and vasopressor support. At her baseline she is independent in her ADL's with the exception of transport which her family provides. Her DME includes a bipap, shower chair, and 5L NC reportedly from [facility]. She is established with her PCP, uses [...] Banuelos DATE: March 19, 2025 TIME: 10:08 [facility]06-21-2025 NoteHNO ID: [id number] Author: NGUYEN PALACIOS DO Service: Hospital Medicine Author Type: Physician Type: Plan of Care Filed: 03/18/2025 13:58 Note Text: This is a 59 year old female with past medical history of COPD, Chronic hypoxic respiratory failure on 5 L NC. Patient was transferred from [facility]. There she was found to have acute pancreatitis. She had a stent placed in the body of the pancrease however on CT scan at the other hospital she had new peripancreatic inflammation. She was also experiencing acute hypoxic respiratory failure and was emergently intubated and transferred to [facility]. Patient was admitted [facility] ICU. She was on levophed and vasopressin. [...] check iron studies. Keep hemoglobin greater than 7[facility]2025 NoteHNO ID: [id number] Author: GERSON MCCALL MD Service: Critical Care [...] (GEODON) 40 mg caps (more content not included)...[facility]06-20-2025 NoteHNO ID: [id number] Author: GERSON MCCALL MD Service: Critical Care [...] MonitorHome blood pressure monitorDisp (more content not included)...[facility]06-19-2025 NoteHNO ID: [id number] Author: ANNETTA HUYNH RN Service: Care Management Author Type: Registered Nurse Type: Care Mgt Initial Assessment Filed: 03/17/2025 09:01 Note Text: CARE MANAGEMENT: ASSESSMENT AND DISCHARGE PLAN SERVICE DATE: March 16, 2025 SERVICE TIME: 1400 PCP: Misbah Elkins MD Primary Contact: Extended Emergency Contact Information Primary Emergency Contact: Domonique Banuelos Mobile Relation: Sister Secondary Emergency Contact: Kasie Hernandez Cameron Relation: Daughter Admission Status: Inpatient Insurance Provider: [employer] Discharge Planning requested by: Per Department Practice Potential Transition Plans Home, Home Care, Home OT/PT, Senior Living Facility/Intermediate Care Facility, To Be Determined Advance Directives Current Advance Directive: Health Care Power of Eyeglass Frame Truer In Chart: No Pipe Connector Attempted to Assist with AD Completion: No [...] Be able to go home, General wellness [place] Explained: [place] Given: Yes Level of Care Discussed: Home Care, Senior Living Facility Are you interested in bedside delivery [...] were you homeless or living in a longterm (including now)?: No Utilities In the past 12 months has the [place], gas, oil, or water [employer] threatened to shut off services in your home?: No [place] Given: Yes Level of Care Discussed: Home Care, Senior Living Facility Financial Disclosure Provided: Yes Provider List: Home Care, Senior Living Facility Provider list within the patient's requested geographic area shared with the patient/family: Yes within: 20 miles of zip code: [address] Quality and resource use metrics shared with the patient that are relevant to the patient's goals of care and treatment preferences:: Yes Late entry 03/17 0850. Chart reviewed. Patient came to the hospital from home with two of her adult children for epigastric pain. Her pain reportedly started following a pancreatic stent placement which was completed 03/10. She initially presented to [facility] but was a transfer to [facility] following intubation. She is being treated for respiratory failure/PNA/chronic pancreatitis/sepsis.She is being treated with aerosols, IV antibiotics, and vasopressor support.As she is vented/sedated plan was discussed with her daughter Caitie Ferro. At her baseline she is independent in her ADL's with the exception of transport which her family provides. Her DME includes a bipap, shower chair, and 5L NC reportedly from [facility]. Her home oxygen orders will need verified. She is established with her PCP, uses no community resources, and can afford her medications. At this time plan is TBD pending clinical course. I provided SNF/HHC lists for her family to review. Patient has a HCPOA on file which appoints her daughter Caitie hernandez. Her contact number is [phone]. The first alternate is her sister Domonique Banuelos- [phone]. SIGNATURE: Annetta Huynh RN PATIENT NAME: Gracie Banuelos DATE: March 16, 2025 TIME: 2:52 [facility]25 NoteHNO ID: [id number] Author: TRENTON HECK APRN.IGOR Service: Critical Care Author Type: Nurse Practitioner Type: Procedures Filed: 03/16/2025 14:10 Note Text: BEDSIDE PROCEDURE NOTE CENTRAL LINE INSERTION Date/Start Time: 03/16/2025 1:30 PM Date/Stop Time: 03/16/2025 1:50 PM Performed by: Trenton Heck APRN.PROPERTY DISPOSAL OFFICER Authorized by: Trenton Heck APRN.PROPERTY DISPOSAL OFFICER Where was Patient When this Procedure was Performed: Bedside/Unscheduled Procedure Room Informed Consent Consent Obtained: Verbal (Sister Domonique) [place] Protocol A moment to CARE was completed. [...] following the usual aseptic technique. [facility] Central Line Insertion Checklist, attached to [...] Clarke DATE: March 16, 2025 TIME: 2:07 [facility] Telephone encounter Note* Telephone Encounter - Eva Martines RN - 03/16/2025 1:20 PM EDT Patient's daughter calls and wanted provider aware that patient is currently at [facility] on a[facility]entilator. Daughter apologizes for forgetting to cancel appointment yesterday. Daughter states that mother was being put on a ventilator at that time. Eva Martines RN [facility]06-19-2025 Miscellaneous Notes* Telephone Encounter - Eva Martines RN - 03/16/2025 1:20 PM EDT Patient's daughter calls and wanted provider aware that patient is currently at [facility] on aVentilator. Daughter apologizes for forgetting to cancel appointment yesterday. Daughter states that mother was being put on a ventilator at that time. Eva Martines RN documented in this encounterMer[facility]2025 NoteHNO ID: [id number] Author: GERSON MCCALL MD Service: Critical Care [...] muscle spasm.Disp: 15 table (more content not included)...[facility]06-19-2025 [facility]06-19-2025 NoteHNO ID: [id number] Author: MAKSIM ANDERSON APRN.PROPERTY DISPOSAL OFFICER Service: ? Author Type: Nurse Practitioner Type: Progress Notes Filed: 03/16/2025 07:05 Note Text: CRITICAL CARE TRANSPORT MEDICAL CONTROL CONSULT NOTE Patient Name: Gracie Banuelos Service Date: March 16, 2025 Referring Facility: [facility] Accepting Facility: [facility] REASON FOR TRANSPORT: Higher level intensive care services not available at the referring facility REASON FOR CONSULT: Hypotension and Sedation CCT MEDICAL CONTROL CONSULT SUMMARY: History, physical exam findings, and available background patient information from [facility] Transport Nurse were reviewed at the time of consult. Pertinent additional information was reviewed as follows: [facility] transport request log In brief, Gracie Banuelos is a 59 year old female with a history, known at time of consult, significant for Smoking and COPD (5L N/C at home) who was admitted to [facility] for evaluation of Acute on Chronic [...] HCO3 26.8. Patient is being transferred to [facility] for higher level intensive care services not [...] confirmed and read back via telephone with [facility] Transport research assistant member, Dung Coe, Cigar Maker SIGNATURE: Maksim Anderson APRN.[facility] Acute Care Nurse Practitioner [facility] History of Present illness Narrative* Maksim Anderson APRN.PROPERTY DISPOSAL OFFICER - 03/16/2025 5:45 AM EDT Images from the original note were not included. CRITICAL CARE TRANSPORT MEDICAL CONTROL CONSULT NOTE Patient Name: Gracie Banuelos Service Date: March 16, 2025 Referring Facility: [facility] Accepting Facility: [facility] REASON FOR TRANSPORT: Higher level intensive [...] N/C at home) who was admitted to [facility] for evaluation of Acute on Chronic [...] HCO3 26.8. Patient is being transferred to [facility] for higher level intensive care services not [...] read back via telephone with [facility] Transport research assistant member, Dung Coe, Cigar Maker SIGNATURE: Maksim Anderson APRN.CNP Acute Care Nurse Practitioner Critical Care Transport documented in this encounterMer[facility]06-[facility]-2025 [id number] (AGENT OF COVID-19) RNA: Not detected INFLUENZA A RNA: Not detected INFLUENZA B RNA: Not detected RESPIRATORY SYNCYTIAL VIRUS (RSV) RNA: Not detectedSouthern Coos Hospital And Health CenterComment on above:Performed By: #### [id number] #### [facility] CLIA [id number] [address] [place] [address] OF [id number] Respiratory pathogens DNA and RNA 12b panel [...] DNA: Not detected BORDETELLA PARAPERTUSSIS DNA: Not detectedSouthern Coos Hospital And Health CenterComment on above:Performed By: #### [id number] #### [facility] CLIA [id number] [address] [place], [place] [id number] [facility] OF [id number] Progress note Author Sudhir Izquierdo [facility] Note Date/Time March 15, 2025 8:39 pm [facility] Medical Records Department [address] [place] [address] Progress Note 03/15/252036 MR#: [id number] Acct: [id number] Name: GRACIE BANUELOS Rep #:[id number] : 1965 59 From: Sudhir pace MD [...] Cosigner Signature (if applicable): CC: ~ Signed [facility] Work Phone: 1(292) 940-624606-18-2025 Progress note Author Sudhir Izquierdo [facility] Note Date/Time March 15, 2025 7:20 pm [facility] Medical Records Department [address] [facility] [place] [address] Progress Note 03/15/251917 MR#: [id number] Acct: [id number] Name: GRACIE BANUELOS Rep #:[id number] : 1965 59 From: Sudhir pace MD [...] Cosigner Signature (if applicable): CC: ~ Signed [facility] Work Phone: 1(843) 143-200806-18-2025 Progress note Author Sudhir Izquierdo [facility] Note Date/Time March 15, 2025 7:17 pm [facility] Medical Records Department [address] [place] [address] Progress Note 03/15/251913 MR#: [id number] Acct: [id number] Name: GRACIE BANUELOS Rep #:[id number] : 1965 59 From: Sudhir pace MD [...] less than 1 cc. Procedures Hospitalists Procedures: 66288 Insert Emergency Airway 03/15/251916 <Electronically signed by Sudhir Izquierdo MD> Sudhir Izquierdo MD Cosigner Signature (if applicable): CC: ~ Signed [facility] Work Phone: 1(534) 895-140506-18-2025 Progress note Author Sudhir Izquierdo [facility] Note Date/Time March 15, 2025 7:13 pm [facility] Medical Records Department [address] [place] [address] Progress Note 03/15/251911 MR#: [id number] Acct: [id number] Name: GRACIE BANUELOS Rep #:[id number] : 1965 59 From: Sudhir pace MD [...] intubation is emergent. Will also call the [facility] transfer line to change designation to critical care patient to see if this expedites transfer. 03/15/251912 <Electronically signed by Sudhir Izquierdo MD> Sudhir Izquierdo MD Cosigner Signature (if applicable): CC: ~ Signed [facility] Work Phone: 1(972) 305-433306-18-2025 Progress note Author Sudhir Izquierdo [facility] Note Date/Time March 15, 2025 7:12 pm [facility] Medical Records Department [address] [place] [address] Progress Note - Hospitalist 03/15/251907 MR#: [id number] Acct: [id number] Name: GRACIE BANUELOS Rep #:[id number] : 1965 59 From: Sudhir pace MD PCP: Dr. Misbah Elkins MD Status:ADM I N [facility] Subjective Subjective Seems to have some [...] 83.6 H, Lymph % (Auto) 5.8 L, [place] % (Auto) 6.1, Eos % (Auto) 0.3, [...] lower lobes. Enlarged cardiac silhouette. [facility] Chest [facility] 03/15/25 17:00 IMPRESSION: As above. Reading Location: [id number] Physical Exam Narrative General: Alert, Oriented x3, [...] show she is pending transfer back to [facility] ? Remain n.p.o. ? Will hold [...] DVT: Lovenox Charges/Coding Visit Charges Inpatient E&M: 60677 Subs Hosp L3 03/15/251911 <Electronically signed by Sudhir Izquierdo MD> Cosigner Signature (if applicable): CC: ~ Signed [facility] Work Phone: 1(464) 648-297106-18-2025 Radiology Diagnostic study [facility]06-18-2025 Consult note Author Gonzalo Sebastian [facility] Note Date/Time March 15, 2025 11:5 1am [facility] Medical Records Department [address] [place] [address] Consultation - Laundry Operator Finishing 03/15/25819 MR#: [id number] Acct: [id number] Name: GRACIE BANUELOS Rep #:[id number] : 1965 59 From: Gonzalo Sebastian DO [...] respiratory status worsens. 6. Awaiting transfer to [facility], pending bed availability. IMPRESSIONS: 1. [...] patient was recently discharged on Thursday from [facility] following pancreatic stent placement. She presented again with worsening abdominal pain and elevatedlipase and was subsequently placed on supplemental IV fluids, with transfer pending to [facility]. 3. History of hypertension/hyperlipidemia/anxiety/depression/GERD/hypothyroidism/tobacco dependency Complicates care, management, recovery and prognosis. Continue home medicationsas indicated along with supportive care as noted above. This note was generated with [employer] dictation software. It may contain incorrectwords, spelling, [...] prior alcohol use with recent hospitalization at [facility] last week for pancreatic stent [...] was made to proceed with transfer to [facility] for further management. Although the patient [...] BNP is elevated at 4257. [facility] Medical History Stenosis of left subclavian [...] Allergy Other Verified 02/26/25 13:57 hydrocodone (From [place]) AdvReac Itching Verified 02/26/25 13:57 Family History [...] 83.6 H, Lymph % (Auto) 5.8 L, Hern[place] % (Auto) 6.1, Eos % (Auto) 0.3, [...] lower lobes. Enlarged cardiac silhouette. Reading [facility] Charges/Coding Visit Charges Inpatient E&M: 92457 Init Hosp L3 03/15/25 1151 <Electronically signed by Gonzalo Sebastian DO> Cosigner Signature (if applicable): CC: Dr. Misbah Elkins MD~ Signed [facility] Work Phone: 1(615) 469-122106-18-2025 Radiology Diagnostic study [facility]06-17-2025 Progress note Author Sudhir Izquierdo [facility] Note Date/Time March 14, 2025 10:3 6am [facility] Medical Records Department [address] [place] [address] Progress Note - Hospitalist 03/14/25 1025 MR#: [id number] Acct: [id number] Name: GRACIE BANUELOS Rep #:[id number] : 1965 59 From: Sudhir pace MD PCP: Dr. Misbah Elkins MD Status:ADM I N Location: [place] [address] Subjective Subjective No issues overnight, leukocytosis is [...] (Auto) 83.5 H, Lymph% (Auto) 6.3 L, Hernando % (Auto) 8.1, Eos % (Auto) 0.5, [...] Clarity Clear, Urine pH 7.0, Ur Specific [place] 1.005, Urine Protein 30 H, Urine Glucose [...] (Auto) 81.7 H, Lymph% (Auto) 9.0 L, [place] % (Auto) 6.4, Eos % (Auto) 1.2, [...] at the time of dictation. Reading [facility] Chest X-Ray 03/13/25 12:40 IMPRESSION: No evidence of acute cardiopulmonary pathology. Reading Location: [id number] Physical Exam Narrative General: Alert, Oriented x3, [...] show she is pending transfer back to [facility] ? Remain n.p.o. ? Continue with [...] DVT: Lovenox Charges/Coding Visit Charges Inpatient E&M: 74930 Subs Hosp L2 03/14/25 1036 <Electronically signed by Sudhir Izquierdo MD> Cosigner Signature (if applicable): CC: ~ Signed [facility] Work Phone: 1(348) 306-779006-17-2025 Evaluation note* Diagnosis Onset Date Resolution Status [...] 2024 9:16am Alcohol abuse resolved June 9:16am [facility] Work Phone: 1(857) 713-340206-17-2025 History and physical note Author Pako Fernández [facility] Note Date/Time March 13, 2025 11:2 8pm [facility] Medical Records Department [address] [place] [address] History & Physical Exam 03/13/25 2320 MR#: [id number] Acct: [id number] Name: GRACIE BANUELOS Rep #:[id number] : 1965 59 From: Pako Fernández MD PCP: Dr. Mibsah Elkins MD Status:REG E R Location: ED [...] several months. She was recently admitted to [facility] and treated by GI specialist Dr. Portillo. She had a surgery performed for her pancreatitis and a stent was placed this past Thursday. Patient states she has had worsening epigastric abdominal pain since discharge on Thursday. She denies fever, chills, shortness of breath, chest pain, diarrhea constipation or dysuria. Patient has been accepted to [facility] for transferfrom the emergency room, however, a bed is not available this evening and patient will be admitted temporarily in our facility while pending transfer to tertiary care facility to address pancreatic stent and acute pancreatitis. [facility] Medical History Stenosis of left subclavian [...] Allergy Other Verified 02/26/25 13:57 hydrocodone (From [place]) AdvReac Itching Verified 02/26/25 13:57 Family History [...] (Auto) 83.5 H, Lymph% (Auto) 6.3 L, Hernando % (Auto) 8.1, Eos % (Auto) 0.5, [...] Clarity Clear, Urine pH 7.0, Ur Specific [place] 1.005, Urine Protein 30 H, Urine Glucose [...] at the time of dictation. Reading Location: [facility] Chest X-Ray 03/13/25 12:40 IMPRESSION: No evidence of acute cardiopulmonary pathology. Reading Location: [facility] Assessment & Plan Assessment/Plan (1) Smoking greater than 30 pack years: (2) COPD (chronic obstructive pulmonary disease): QUALIFIERS: COPD type: emphysema Emphysema type: centrilobular Qualified Code(s): J43.2 - Centrilobular emphysema (3) Abdominal pain: (4) Chronic pancreatitis: QUALIFIERS: Pancreatitis type: alcohol induced Qualified Code(s):K86.0 - Alcohol-induced chronic pancreatitis PLAN: Plan 1. Acute on chronic pancreatitis?admit patient temporarily to our facility pending transfer to [facility], make n.p.o., IV normal saline at [...] Elkins MD; Dr. Pako Fernández MD~ Signed [facility] Work Phone: 1(483) 827-462006-17-2025 Discharge summary Author Macario Feliz-[facility] Note Date/Time March 13, 2025 11:1 5pm [facility] Medical Records Department [address] [place] [address] Emergency Department Summary 03/13/25 MR#: [id number] Acct: [id number] Name: GRACIE BANUELOS Rep #:[id number] : 1965 59 From: Macario mccain DO PCP: Dr. Misbah Elkins MD Status:REG E R Location: ED ADDENDUM by Dr. Rica Doe DO on 03/13/25 at 2315 Care of patient turned over to id awaiting transfer to [facility] for abdominal pain and pancreatitis. Patient had more abdominal discomfort while awaiting transfer and I did give her 4 mg of morphine and 4 mg of Zofran. Patient also walked to the bathroom and back and became hypoxic on her oxygen. She has history of COPD. I did give her a DuoNeb aerosol. [facility] was contacted and they will not [...] states she had a recent admission at [facility] in which she wasseen [...] intact Psych: Cooperative, appropriate mood and affect [facility] Medical History Stenosis of left [...] Allergy Other Verified 02/26/25 13:57 hydrocodone (From [place]) AdvReac Itching Verified 02/26/25 13:57 Family History [...] placed on Thursday with Dr. Garrido at [facility]. Differential diagnosis includes but is [...] is in agreement. We reached out to [facility], they have no record of the patient. Patient was informed of this and now states she cannot care at [facility]. Reached out to the transfer line at [facility]. I spoke with Dr. Pascual BENÍTEZ who [...] 83.5 H Lymph % (Auto) 6.3 L Hernando % (Auto) 8.1 Eos % (Auto) 0.5 [...] Color Urine Clarity Urine pH Ur Specific [place] Urine Protein Urine Glucose (UA) Urine Ketones [...] (Auto) Neut % (Auto) Lymph % (Auto) Hernando % (Auto) Eos % (Auto) Baso % [...] Clarity Clear Urine pH 7.0 Ur Specific [place] 1.005 Urine Protein 30 H Urine Glucose [...] evidence of acute cardiopulmonary pathology. Reading Location: [id number] Discharge Plan Triage Chief Complaint: Abd Pain [...] MD [Primary Care Provider] - Print Language: Finnish What to do if you have Problems For any increased pain, shortness of breath, bleeding, nausea or vomiting, chestpain, or any unexpected problems, contact your Primary Care Provider. Call [facility] ([phone]) or report to the closest Emergency Room. Call 911 if necessary. 03/13/25 2554 <Electronically signed by Macario Alex DO> Cosigner Signature (if applicable): CC: Dr. Misbah Elkins MD ~ Signed [facility] Work Phone: 1(502) 115-136206-16-2025 [facility]06-16-2025 Discharge summary Author Macario Alex [facility] Note Date/Time March 13, 2025 11:1 5pm [facility] Medical Records Department [address] [place] [address] Emergency Department Summary 03/13/25 MR#: [id number] Acct: [id number] Name: GRACIE BANUELOS Rep #:[id number] : 1965 59 From: Macario mccain DO PCP: Dr. Misbah Eklins MD Status:REG E R Location: ED ADDENDUM by Dr. Rica Doe DO on 03/13/25 at 2315 Care of patient turned over to me awaiting transfer to [facility] for abdominal pain and pancreatitis. Patient had more abdominal discomfort while awaiting transfer and I did give her 4 mg of morphine and 4 mg of Zofran. Patient also walked to the bathroom and back and became hypoxic on her oxygen. She has history of COPD. I did give her a DuoNeb aerosol. [facility] was contacted and they will not [...] states she had a recent admission at [facility] in which she wasseen [...] intact Psych: Cooperative, appropriate mood and affect [facility] Medical History Stenosis of left [...] Allergy Other Verified 02/26/25 13:57 hydrocodone (From [place]) AdvReac Itching Verified 02/26/25 13:57 Family History [...] placed on Thursday with Dr. Garrido at [facility]. Differential diagnosis includes but is [...] is in agreement. We reached out to [facility], they have no record of the patient. Patient was informed of this and now states she cannot care at [facility]. Reached out to the transfer line at [facility]. I spoke with Dr. Pascual BENÍTEZ who [...] 83.5 H Lymph % (Auto) 6.3 L Hernando % (Auto) 8.1 Eos % (Auto) 0.5 [...] Color Urine Clarity Urine pH Ur Specific [place] Urine Protein Urine Glucose (UA) Urine Ketones [...] (Auto) Neut % (Auto) Lymph % (Auto) Hernando % (Auto) Eos % (Auto) Baso % [...] Clarity Clear Urine pH 7.0 Ur Specific [place] 1.005 Urine Protein 30 H Urine Glucose [...] at the time of dictation. Reading Location: [facility] Chest X-Ray 03/13/25 12:40 IMPRESSION: No evidence of acute cardiopulmonary pathology. Reading Location: [facility] Discharge Plan Triage Chief Complaint: Abd Pain [...] MD [Primary Care Provider] - Print Language: Finnish What to do if you have Problems For any increased pain, shortness of breath, bleeding, nausea or vomiting, chestpain, or any unexpected problems, contact your Primary Care Provider. Call [facility] ([phone]) or report to the closest Emergency Room. Call 911 if necessary. 03/13/25 1716 <Electronically signed by Macario Alex DO> Cosigner Signature (if applicable): CC: Dr. Misbah Elkins MD ~ Signed [facility] Work Phone: 1(601) 709-191406-16-2025 Radiology Diagnostic study [facility]06-16-2025 Radiology Diagnostic study [facility] Work Phone: 1(335) 823-532806-16-2025 Telephone encounter Note* Telephone Encounter - Juan [...] a message. Juan Bloom LPN [facility] Work Phone: 1(851) 481-482006-16-2025 Miscellaneous Notes* Telephone Encounter - Juan Bloom [...] - 03/13/2025 9:57 AM EDT Gracie calling #[phone] Patient states she's in a lot of [...] Isis Joe documented [facility] Telephone encounter Note * Telephone Encounter - Isis Gil - 03/13/2025 9:57 AM EDT Gracie calling #[phone] Patient states she's in a lot of [...] to someone first. Thank you Isis Joe [facility]06-13-2025 Nurse Note* Janis Ac, SARWAT - 03/10/2025 5:[address] Chakraborty anesthesia ok d patient to be discharged Three hot packs given to patient for right arm [facility]06-13-2025 Nurse Note* Janis Ac RN - [...] patient Gracie and sister Magui spoke to [employer] nurse gym manager Reshma [facility] office number given. Pharmacy called, [facility] pharmacist [...] Department: GASTROENTEROLOGY documented in this encounterMer[facility]06-[facility]-2025 Nurse Note* Janis Ac RN - 03/10/2025 4:33 PM EDT Patient states her arm where the infiltration occurred it is burning Patient informed to keep an eye on the infiltrated area so a blister does not form of it does go to the Emergency room [facility]06-13-2025 Nurse Note* Janis Ac RN - 03/10/2025 4:02 PM EDT Right AC IV infiltrated with 100cc IV Propofol large swollen red hard area Hot pack applied Patientcrying stating arm hurts patient Gracie and sister Magui spoke to [employer] nurse gym manager Reshma Garcia office number given. Pharmacy called, [facility] pharmacist notified unable to help. Called Drug information line spoke with [place] stated monitor patient There is no information in regards to amount of time Propofol will take to infuse .Patient is awake alert oriented x3 [facility]06-13-2025 Nurse Note* Janis Ac RN - 03/10/2025 3:[address] Chakraborty anesthesia notified patients blood pressure low 73/52 74/51 Albumin 25 grams given Patient awake alert oriented x3 skin warm and dry [facility]06-13-2025 Nurse Note* Janis Ac RN - [...] Discharge Instructions REFERRAL (RECOMMENDATION): None [facility]06-13-2025 NoteQ3 Patient Name: Gracie Banuelos Procedure Date: 03/10/2025 1:46 PM Date of : 1965 Admit Type: Outpatient Age: 59 Gender: Female Note Status: Finalized Attending MD: Jane Farrell MD, [id number] Procedure: ERCP Indications: Chronic pancreatitis, For therapy [...] procedure well. Moderate Sedation: GA Findings: A roller printer film of the abdomen was obtained. Multiple [...] remove stent. Procedure Code(s): --- Professional --- 66099, Endoscopic retrograde cholangiopancreatography (ERCP); with placement of endoscopic stent into biliary or pancreatic duct, including pre- and post-dilation and guide wire passage, when performed, including sphincterotomy, when performed, each stent 95796, Endoscopic retrograde cholangiopancreatography (ERCP); with removal of calculi/debris from (more content not included)...[id number] NoteHNO ID: [id number] Author: VANESSA PEREZ APRN.PATTERN CHART WRITER Service: ? Author Type: Nurse Railroad Auditor Type: Anesthesia Procedure Notes Filed: 03/10/2025 14:41 Note Text: ANESTHESIOLOGY PROCEDURE NOTE Airway General Information Procedure Start Time/Medication Administration: 03/10/2025 2:15 PM Procedure End Time: 03/10/2025 2:15 PM Patient location during procedure: OR Timeout Performed Pre-procedure: timeout performed Consent Obtained: Yes Patient identity confirmed: arm band, care team coordinator and patient Staffing PATTERN CHART WRITER: Vanessa Perez APRN.PATTERN CHART WRITER Performed by: LISETTE Indications and Patient Condition Indications for airway management: anesthesia and airway protection Preoxygenated: yes anesthesia circuit Patient position: sniffing Method: sleep Difficult Mask: No Final Airway Details Final airway type: endotracheal airway Final Endotracheal Airway: ETT Cuffed: yes Successful intubation technique: video laryngoscopy Devices used: [employer] Endotracheal tube insertion site: oral Blade size: #3 ETT size (mm): 7.0 Measured from: lips Measurement (cm): 21 Placement verified by: capnometry Cormack-Lehane Classification: grade I - full view of glottis Number of attempts at approach: 1 Airway not difficult SIGNATURE: Vanessa Perez APRN.PATTERN CHART WRITER PATIENT NAME: Gracie Banuelos DATE: March 10, 2025 TIME: 2:40 PM CSN: [id number]20[facility] NoteQ3 Patient Name: Gracie Banuelos Procedure Date: 03/10/2025 1:46 PM Date of : 1965 Admit Type: Outpatient Age: 59 Gender: Female Note Status: Finalized Attending MD: Jane Farrell MD, [id number] Procedure: ERCP Indications: Chronic pancreatitis, For therapy [...] procedure well. Moderate Sedation: GA Findings: A roller printer film of the abdomen was obtained. Multiple [...] remove stent. Procedure Code(s): --- Professional --- 27109, Endoscopic retrograde cholangiopancreatography (ERCP); with placement of endoscopic stent into biliary or pancreatic duct, including pre- and post-dilation and guide wire passage, when performed, including sphincterotomy, when performed, each stent 25248, Endoscopic retrograde cholangiopancreatography (ERCP); with removal of calculi/debris from biliary/pancreatic duct(s) 77166, Endoscopic catheterization of the pancreatic ductal system, radiological supervision and interpretation Diagnosis Code(s): --- Professional --- K86.89, Other specified diseases of pancreas K86.1, Other chronic pancreatitis R93.2, Abnormal findings on diagnostic imaging of liver and biliary tract CPT copyright 2020 [employer]. All rights reserved. Attending Participation: I personally performed the entire procedure. Scope In: 2:28:14 PM Scope Out: 2:49:25 PM MD Jane Fields MD 03/10/2025 3:19:29 PM This report has been signed electronically by Jane Farrell MD Number of Addenda: 0 Note Initiated On: 03/10/2025 1:46 [facility]06-13-2025 Nurse Note* Adrian Edmond RN - 03/10/2025 [...] Edmond RN In Department: GASTROENTEROLOGY [facility]06-10-2025 Telephone encounter Note* Telephone Encounter - Isis Gil - 03/07/2025 2:29 PM EDT Patient called, did not receive email. She stated it had to all be in lower case. I resent email Thank you Isis Joe [facility]06-10-2025 Miscellaneous Notes* Telephone Encounter - Isis [...] MD Department of Gastroenterology- Advanced Endoscopy [address] [id number] 03/07/2025 Pt. name: Gracie Banuelos 1965 MEDICAL Procedure This is to certify that Gracie Banuelos this is a letter to confirm that Gracie has a procedure at [facility] on 03/10 with an arrival time of 12pm. This appointment needs to have a responsible adult class a regional truck driver to accompany her for transportation to and after her procedure. Sincerely, Jane Farrell MD * Telephone Encounter - Isis Gil - 03/07/2025 11:40 AM EDT She stated there was supposed to be a letter or some document to be faxed over to [facility] to help pay for her gas prior to her ERCP on 03/10/25 Email: [email or web address] Are we able to get that sent over for patient? Thank you Isis Joe documented in this encounterMer[facility]06-10-2025 Telephone encounter Note * Telephone Encounter - Juan Bloom LPN - 03/07/2025 12:28 PM EDT Images from the original note were not included. Jane Farrell MD Department of Gastroenterology- Advanced Endoscopy [address] [place], [place] [id number] 03/07/2025 Pt. name: Gracie Banuelos 1965 MEDICAL Procedure This is to certify that Gracie Banuelos this is a letter to confirm that Gracie has a procedure at [facility] on 03/10 with an arrival time of 12pm. This appointment needs to have a responsible adult class a regional truck driver to accompany her for transportation to and after her procedure. Sincerely, Jane Farrell MD [facility] Work Phone: 1(309) 697-739606-10-2025 NoteHNO ID: [id number] Author: JUAN BLOOM LPN Service: ? Author Type: LICENSED NURSE Type: Progress Notes Filed: 03/07/2025 12:28 Note Text: Jane Farrell MD Department of Gastroenterology- Advanced Endoscopy [address] [id number] 03/07/2025 Pt. name: Gracie Banuelos 1965 MEDICAL Procedure This is to certify that Gracie Banuelos this is a letter to confirm that Gracie has a procedure at [facility] on 03/10 with an arrival time of 12pm. This appointment needs to have a responsible adult class a regional truck driver to accompany her for transportation to and after her procedure. Sincerely, Jane Farrell [facility]06-10-2025 History of Present illness Narrative* Juan Bloom LPN - 03/07/2025 11:57 AM EDT Images from the original note were not included. Jane Farrell MD Department of Gastroenterology- Advanced Endoscopy [address] [id number] 03/07/2025 Pt. name: Gracie Banuelos 1965 MEDICAL Procedure This is to certify that Gracie Banuelos this is a letter to confirm that Gracie has a procedure at [facility] on 03/10 with an arrival time of 12pm. This appointment needs to have a responsible adult class a regional truck driver to accompany her for transportation to and after her procedure. Sincerely, Jane Farrell MD documented in this encounterMer[facility]06-10-2025 Telephone encounter Note * Telephone Encounter - Isis Gil - 03/07/2025 11:40 AM EDT She stated there was supposed to be a letter or some document to be faxed over to [employer] to help pay for her gas prior to her ERCP on 03/10/25 Email: [email or web address] Are we able to get that sent over for patient? Thank you Isis Joe [facility]06-09-2025 Telephone encounter Note* Telephone Encounter - Juan Senior APRN.CNP - 03/06/2025 3:53 PM EDT Patient calling to discuss anxiety related to ERCP on Saturday 03/10. She is wondering if she can receive something for anxiety prior to procedure. Patient instructed to ask Dr. Farrell prior. Patient also asking for email to be sent to [employer] ([employer]) with proof ofprocedure for gas money. Patient also reports diarrhea and changes in mental status/forgetfulness and extreme fatigue after increasing gabapentin dose. Instructed patient to decrease dose from TID to BID. Also strongly encouraged patient to keep upcoming appointment with pain management. All questions answered at this time. Will follow up after procedure. Juan Senior APRN.CNP [facility] Work Phone: [phone] Miscellaneous Notes* Telephone Encounter - Juan Senior APRN.CNP - 03/06/2025 3:53 PM EDT Patient calling to discuss anxiety related to ERCP on Saturday 03/10. She is wondering if she can receive something for anxiety prior to procedure. Patient instructed to ask Dr. Farrell prior. Patient also asking for email to be sent to [employer] ([employer] assistance program) with proof ofprocedure for [...] 300 mg capsule. Please send script to: [facility] [address] [place] [address] [address] - [phone] [[phone]] Dayanajosefina Martell documented in this encounterMercy Health [facility]. [facility]06-09-2025 Telephone encounter Note * Telephone Encounter - Caitlin Obrien RN - 03/06/2025 11:30 AM EDT Attempted to reach patient to answer he questions from call this morning, no answer. VM left to call the office back. [facility] Work Phone: 1(984) 914-745306-09-2025 Miscellaneous Notes* Telephone Encounter - Caitlin Obrien RN - 03/06/2025 11:30 AM EDT Attempted to reach patient to answer he questions from call this morning, no answer. VM left to call the office back. documented in this encounterMer[facility]06-09-2025 Telephone encounter Note * Telephone Encounter - Isis Gil - 03/06/2025 9:04 AM EDT Gracie calling #[phone] Patient is calling regarding wanting to speak [...] ok. Thank you Isis Joe [facility]06-09-2025 Miscellaneous Notes* Telephone Encounter - Isis Gil - 03/06/2025 9:04 AM EDT Gracie calling #[phone] Patient is calling regarding wanting to speak [...] Isis Joe documented in this encounterMer[facility]. [facility]06-06-2025 Nurse Note* Jaelyn Kothari RN - 03/03/2025 9:48 AM EDT Attempted to reach the patient at the contact number that they provided [phone] (home) . Unable to speak with patient so without identifying the patient the following information was left on their voice mail: Date of procedure, location and report time A message was left informing the patient/patient personal banking representative they must have a responsible adult [...] Number to call with questions or concerns [phone] Number to call to cancel their procedure [phone] Jaelyn Kothari RN [facility]06-06-2025 Nurse Note* Jaelyn Kothari RN - 03/03/2025 9:48 AM EDT Attempted to reach the patient at the contact number that they provided [phone] (home) . Unable to speak with patient so without identifying the patient the following information was left on their voice mail: Date of procedure, location and report time A message was left informing the patient/patient personal banking representative they must have a responsible adult [...] Number to call with questions or concerns [phone] Number to call to cancel their procedure [phone] Jaelyn Kothari RN documented in this encounterMer[facility]06-01-2025 Radiology Diagnostic study [facility]05-16-2025 Telephone encounter Note* Telephone Encounter - Pam Pino - 02/10/2025 11:31 AM EDT Received / transmitted outside records to patient's chart. See scanned documents tab (clearance letter). [facility] Work Phone: [phone] Miscellaneous Notes* Telephone Encounter - Pam Pino - 02/10/2025 11:31 AM EDT Received / transmitted outside records to patient's chart. See scanned documents tab (clearance letter). documented in this encounterMer[facility]05-14-2025 Evaluation note* Diagnosis Onset Date Resolution [...] Chronic pancreatitis chronic April 26, 2025 1:34pm [facility] Work Phone: 1([phone]) 635-116605-14-2025 Evaluation note* Diagnosis Onset Date Resolution Status [...] Chronic pancreatitis chronic April 26, 2025 1:34pm [facility] Work Phone: 1(150) 466-743605-14-2025 Evaluation note* Diagnosis Onset Date Resolution Status [...] 30 pack years chronic May 24 1:00pm [facility] Work Phone: [phone]) [phone] Telephone encounter Note* Telephone Encounter - Dayana Bone - 02/03/2025 2:45 PM EDT Patient called the office and would like a refill for gabapentin (NEURONTIN) 300 mg capsule. Please send script to: [facility] [address] [place] [address] [address] - [phone] [[phone]] Dayana Martell [facility]04-29-2025 Telephone encounter Note* Telephone Encounter - [...] January 24, 2025 8:[address] [facility]04-29-2025 Miscellaneous Notes* Telephone Encounter - Holly [...] 8:59 AM documented in this encounterMer[facility] St. [facility]04-22-2025 Telephone encounter Note * Telephone Encounter - Mihaela Cadena - 01/17/2025 12:01 PM EDT Appears patient was seen on 01/13/[address] [facility]04-22-2025 Miscellaneous Notes* Telephone Encounter - Mihaela [...] extra strength Ibuprofen 400 mg. Patient uses [employer] [facility] [place], [place]. documented in this encounterMercy Health St. [facility]04-18-2025 NoteHNO ID: [id number] Author: SOILA EASTON APRN.PROPERTY DISPOSAL OFFICER Service: ? Author Type: Nurse Practitioner Type: Progress Notes Filed: 01/13/2025 11:33 Note Text: CC: Patient presents with: Recheck: Follow up HPI Gracie Banuelos is a 59 year old female who presents today for gout concerns. Recording using Phys[employer] software for draft documentation of the visit was discussed with the patient/authorized personal banking representative; all questions welcomed and answered. Patient/authorized personal banking representative agreed to proceed Gout: - Under [...] of months ago asa ordered by her banking attorney. - Denies redness or red streaking; COPD [...] will be in the 90s. 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 - Concerns about potential need for ventilator post-surgery. - Under care of Dr. Sebastian and Ani at [facility]. - No recent infections, fever, or [...] 3 severe COPD by GOLD classification ([facility]) 2018 Tobacco use greater than 30 years [...] by mouth once daily. (more content not included)...[facility]04-18-2025 History of Present illness Narrative* Soila Easton APRN.PROPERTY DISPOSAL OFFICER - 01/13/2025 11:11 AM EDT CC: Patient presents with: Recheck: Follow up HPI Gracie Banuelos is a 59 year old female who presents today for gout concerns. Recording using Physit[employer] software for draft documentation of the visit was discussed with the patient/authorized personal banking representative; all questions welcomed and answered. Patient/authorized personal banking representative agreed to proceed Gout: - Under [...] of months ago asa ordered by her banking attorney. - Denies redness or red streaking; COPD [...] will be in the 90s. 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 - Concerns about potential need for ventilator post-surgery. - Under care of Dr. Sebastian and Ani at [facility]. - No recent infections, fever, or [...] 3 severe COPD by GOLD classification ([facility]) 2018 Tobacco use greater than 30 years [...] management by GI specialists at [facility]. - Awaiting pancreatic stent placement; pulmonary [...] care of Dr. Sebastian and Ani at [facility]. - No recent infections, fever, or [...] Easton APRN.CNP documented in this encounterMercy Health [facility]. [facility]04-17-2025 Telephone encounter Note * Telephone Encounter - Marge Perkins RN - 01/12/2025 1:15 PM EDT Pt has appointment with Soila Easton Np on 01/14/24. [facility]04-17-2025 Miscellaneous Notes* Telephone Encounter - Marge Perkins RN - 01/12/2025 1:15 PM EDT Pt has appointment with Soila Easton Sex Worker Or Escort on 01/14/24. * Telephone Encounter - Aleta Carroll MA - 01/10/2025 9:51 AM EDT Spoke with pt, she states she has urinary incontinence and trouble holding her urine when she is outside her home. Sent rx to [facility]. FYI: Pt scheduled appt tomorrow with Soila [...] can get pull ups paid for through [email or web address]. She states the provider jst has to [...] Perkins RN documented [facility] Telephone encounter Note * Telephone Encounter - Aleta Carroll MA - 01/10/2025 9:51 AM EDT Spoke with pt, she states she has urinary incontinence and trouble holding her urine when she is outside her home. Sent rx to [facility]. FYI: Pt scheduled appt tomorrow with Soila Easton to discuss multiple concerns. Aleta Carroll MA [facility]04-14-2025 Telephone encounter Note* Telephone Encounter - Misbah Elkins MD - 01/09/2025 10:00 PM EDT Please confirm with her, the symptoms for which she needs the pull ups, Misbah Cisneros MD [facility]04-14-2025 Telephone encounter Note* Telephone Encounter - Marge Perkins RN - 01/09/2025 7:13 PM EDT Pt called in and reports she can get pull ups paid for through [email or web address]. She states the provider jst has to [...] Please call and advise. Marge Perkins RN [facility]04-14-2025 Telephone encounter Note* Telephone Encounter - Juan Bloom LPN - 01/09/2025 12:44 PM EDT Disp Refills Start End gabapentin (NEURONTIN) 300 mg capsule 60 capsule 0 01/09/2025 02/08/2025 Sig: Take 1 capsule by mouth two times a day for 30 days. Sent to pharmacy as: gabapentin (NEURONTIN) 300 mg capsule Class: Normal Route: ORAL Order: [id number] Cosign for Ordering: Required by Juan Senior APRN.PROPERTY DISPOSAL OFFICER E-Prescribing Status: Sent to pharmacy (01/09/2025 12:43 PM EDT) [facility] Work Phone: 1(173) 889-435904-14-2025 Miscellaneous Notes* Telephone Encounter - Juan Bloom LPN - 01/09/2025 12:44 PM EDT Disp Refills Start End gabapentin (NEURONTIN) 300 mg capsule 60 capsule 0 01/09/2025 02/08/2025 Sig: Take 1 capsule by mouth two times a day for 30 days. Sent to pharmacy as: gabapentin (NEURONTIN) 300 mg capsule Class: Normal Route: ORAL Order: [id number] Cosign for Ordering: Required by Juan Senior APRN.PROPERTY DISPOSAL OFFICER E-Prescribing Status: Sent to pharmacy (01/09/2025 12:43 [...] February. Please review and advise. Dayana Martell Die Maintenance Technician documented in this encounterMer[facility]04-14-2025 Telephone encounter Note * Telephone Encounter [...] for recommendations. Juan Bloom LPN [facility] Work Phone: 1(790) 474-481004-14-2025 Miscellaneous Notes* Telephone Encounter - Juan Bloom [...] Jimenez MA documented in this encounterMercy Health St. [facility]04-14-2025 Telephone encounter Note * Telephone Encounter - Raisa Jimenez RN - 01/09/2025 8:53 AM EDT Pt is calling asking that someone please contact her. She is in extreme pain and missed her pain management appt She's left several messages but is asking if you can put a script in for pain? Raisa Jimenez MA [facility]04-11-2025 Telephone encounter Note* Telephone Encounter - Dayana Bone - 01/06/2025 12:39 PM EDT Patient called the office stating that she missed her pain management appointment and would like toknow if the office would be able to prescribe her some pain medication until she is able to have her appointment in February. Please review and advise. Dayana Martell Die Maintenance Technician [facility]04-10-2025 Telephone encounter Note* Telephone Encounter - Noemí Self - 01/05/2025 1:36 PM EDT Patient called. She missed her pain management appointment today. She was rescheduled for March 14. She would like to speak to you regarding this today, if possible. [phone] (home) [facility] Work Phone: 1(904) 960-219004-10-2025 Miscellaneous Notes* Telephone Encounter - Noemí Self - 01/05/2025 1:36 PM EDT Patient called. She missed her pain management appointment today. She was rescheduled for March 14. She would like to speak to you regarding this today, if possible. [phone] (home) documented in this encounterMer[facility]. [facility]04-08-2025 Telephone encounter Note * Telephone Encounter [...] of this medication. Please send today [facility] [place], per patient she was told to ask [...] January 03, 2025 12:[address] [facility]04-08-2025 Miscellaneous Notes* Telephone Encounter - Jordana [...] of this medication. Please send today [facility] [place], per patient she was told to [...] 12:24 PM documented in this encounterMer[facility]04-07-2025 Telephone encounter Note * Telephone Encounter - Eva Guardado - 01/02/2025 2:11 PM EDT Left message for patient to return call. When patient calls, please obtain the answers to Soila Easton's questions below or transfer to nurse to get the requested information. Eva Guardado [facility]04-07-2025 Telephone encounter Note* Telephone Encounter - Soila Easton APRN.CNP - 01/02/2025 9:26 AM EDT [facility] to send the ibuprofen. What has she been taking for pain? She was jsut in hospital with EGD and found blood in her mouth any recent Gi bleeds? Ibuprofen can cause GI bleeds. Thank you Soila Easton APRN.CNP [facility]04-07-2025 Telephone encounter Note* Telephone Encounter - [...] January 02, 2025 8:[address] [facility]04-06-2025 Radiology Diagnostic study [facility]04-06-2025 Discharge summary Author Leandro Sanchez [facility] Note Date/Time January 01, 2025 10:0 6pm [facility] Medical Records Department [address] [place] [address] Emergency Department Summary 01/01/25 MR#: [id number] Acct: [id number] Name: GRACIE BANUELOS Rep #:[id number] : 1965 59 From: Leandro Sanchez MD [...] have surgery on December 27 at [facility], but it was postponed secondary to her balance screwhead polisher stating that she should not have surgery [...] on January 05, 4 days from now. [facility] Medical History Stenosis of left [...] Allergy Other Verified 01/01/25 20:30 hydrocodone (From [place]) AdvReac Itching Verified 01/01/25 20:30 Family History [...] was bolused normal saline 1 L intravenously. [id number] with a normal anion gap of 11. [...] interstitial markings. No focal consolidation. Reading Location: [facility] Discharge Plan Triage Chief Complaint: Abd Pain [...] pain, new or worsening symptoms. Print Language: Finnish Disposition Disposition: Home, Self Care What to do if you have Problems For any increased pain, shortness of breath, bleeding, nausea or vomiting, chestpain, or any unexpected problems, contact your Primary Care Provider. Call [facility] ([phone]) or report to the closest Emergency Room. Call 911 if necessary. 01/01/252205 <Electronically signed by Leandro Sanchez MD> Cosigner Signature (if applicable): CC: Dr. Misbah Elkins MD ~ Signed [facility] Work Phone: 1(909) 275-221404-05-2025 Telephone encounter Note* Telephone Encounter - Tyra Meraz RN - 12/31/2024 2:32 PM EDT Patient calling with request for medication/refill: Patient/caregiver requesting refill of Motrin and Zofran be called to [facility] pharmacy at [phone]., Allergies reviewed: Yes, Medication, dosage and sig reviewed: Yes. , Do you have enough medication to last until the office reopens? Yes. ,and Have you contacted your pharmacy to ask for enough medication to get by until the office reopens? No. Patient denies any new or worsening symptoms of which a provider is not aware: Yes. [facility]04-05-2025 Miscellaneous Notes* Telephone Encounter - Tyra Meraz RN - 12/31/2024 2:32 PM EDT Patient calling with request for medication/refill: Patient/caregiver requesting refill of Motrin and Zofran be called to [facility] pharmacy at [phone]., Allergies reviewed: Yes, Medication, dosage and sig reviewed: Yes. , Do you have enough medication to last until the office reopens? Yes. ,and Have you contacted your pharmacy to ask for enough medication to get by until the office reopens? No. Patient denies any new or worsening symptoms of which a provider is not aware: Yes. documented in this encounterMer[facility]04-05-2025 Telephone encounter Note * Telephone Encounter - Marge Handy RN - 12/31/2024 2:08 PM EDT Patient calling with medication/refill: Patient/caregiver requesting refill of ibuprofen be called to [facility] ([place]) pharmacy at [phone]., Allergies reviewed: Yes, Medication, dosage and sig [...] requested a refill of ondansetron but per [facility], she should have a refill available. [...] no further questions or concerns. [facility] Work Phone: 1(150) 128-187704-05-2025 Miscellaneous Notes* Telephone Encounter - Marge Handy RN - 12/31/2024 2:08 PM EDT Patient calling with medication/refill: Patient/caregiver requesting refill of ibuprofen be called to [facility] ([place]) pharmacy at [phone]., Allergies reviewed: Yes, Medication, dosage and sig [...] requested a refill of ondansetron but per [facility], she should have a refill available. [...] or concerns. documented in this encounterMercy [facility] St. [facility]04-05-2025 Telephone encounter Note * Telephone Encounter - Carolyne Trimble - 12/31/2024 9:25 AM EDT Patient called stating she has pain mgmt appt on 01/05. Patient is requesting zofran, and extra strength Ibuprofen 400 mg. [facility] Work Phone: 1(115) 244-566304-02-2025 Telephone encounter Note* Telephone Encounter - Juan [...] as well Juan Bloom LPN [facility] Work Phone: 1(817) 577-712504-02-2025 Miscellaneous Notes* Telephone Encounter - Juan Bloom [...] Patient returned call. Can be reached at: [phone] (home) * Telephone Encounter - Juan Bloom [...] Dayana Martell documented in this encounterMercy Health St. [facility]04-02-2025 Telephone encounter Note * Telephone Encounter - Noemí Self - 12/28/2024 3:14 PM EDT Patient returned call. Can be reached at: [phone] (home) [facility] Work Phone: 1([phone]) 222-954604-02-2025 Telephone encounter Note* Telephone Encounter - Juan Bloom LPN - 12/28/2024 3:02 PM EDT VM left for Gracie Banuelos to discuss current symptoms Offered to call office for discussion. Juan Bloom LPN [facility]04-02-2025 Telephone encounter Note* Telephone Encounter - Lyric Yeung - 12/28/2024 8:53 AM EDT Outside pulmonary function test & CT lung screen results scanned in Epic Lyric Yeung [facility]04-01-2025 Telephone encounter Note* Telephone Encounter - [...] review and advise. Dayana Martell [facility]03-28-2025 Telephone encounter Note* Telephone Encounter - Raisa Jimenez RN - 12/23/2024 12:30 PM EDT Spoke with pt and went over instructions and directions for her appt on 12/27/24. Pt wrote down verbal instructions and confirmed understanding Raisa Jimenez MA ([place]ell) [facility]03-28-2025 Miscellaneous Notes* Telephone Encounter - Raisa Jimenez RN - 12/23/2024 12:30 PM EDT Spoke with pt and went over instructions and directions for her appt on 12/27/24. Pt wrote down verbal instructions and confirmed understanding Raisa Lozano) CHERELLE documented in this encounterMercy Health St. [facility]03-28-2025 Evaluation note* Diagnosis Onset Date Resolution Status Admit Date Acute cholecystitis acute December 23, 2024 9:59am Alcoholic hepatitis chronic December 23, 2024 9:59am Anxiety and depression chronic [facility] 2024 9:59am Asthma chronic December 23 9:59am [...] obstructive pulmonary disease) chronic April 16 1:14am [facility] Work Phone: 1(335) 791-572303-27-2025 Telephone encounter Note* Telephone Encounter - Eileen Chavez MA - 12/22/2024 9:01 AM EDT Message sent. [facility]03-27-2025 Miscellaneous Notes* Telephone Encounter - Eileen [...] they are. documented in this encounterMercy Health St. [facility]03-27-2025 Telephone encounter Note * Telephone Encounter - Soila Easton APRN.CNP - 12/22/2024 8:07 AM EDT I am assuming this is regards to the chest xray as ordered by tara Youngblood. If so please see her result note on the xray. If not, please specify which xray I need to address. Thank you Soila Easton APRN.CNP [facility]03-26-2025 Telephone encounter Note* Telephone Encounter - Sylvia Chawla MA - 12/21/2024 2:05 PM EDT Pt informed Pt asking for xray results but still in process Sylvia Chawla MA [facility]03-26-2025 Miscellaneous Notes* Telephone Encounter - Sylvia [...] you, Tara Youngblood APRN.CNP documented in this encounterMercy Health St. [facility]03-26-2025 Telephone encounter Note * Telephone Encounter - Tara Youngblood APRN.CNP - 12/21/2024 9:25 AM EDT Please call patient and let her know that lab work results are improving. WBC is actually slightly improved from inpatient recent labs. Lipase level is WNL which is great. Continue as discussed in office. Thank you, Tara Youngblood APRN.PROPERTY DISPOSAL OFFICER [facility] Work Phone: 1(229) 134-851003-25-2025 Nurse Note* Carroll Leblanc RN - 12/20/2024 2:55 PM EDT Attempted to reach the patient at the contact number that they provided [phone] (home) . Unable to speak with patient so without identifying the patient the following information was left on their voice mail: Date of procedure, location and report time Prep instructions A message was left informing the patient/patient personal banking representative they must have a responsible adult [...] Number to call with questions or concerns [phone] Number to call to cancel their procedure [phone] Carroll Leblanc RN T [facility]03-25-2025 Nurse Note* Carroll Leblanc RN - 12/20/2024 2:55 PM EDT Attempted to reach the patient at the contact number that they provided [phone] (home) . Unable to speak with patient so without identifying the patient the following information was left on their voice mail: Date of procedure, location and report time Prep instructions A message was left informing the patient/patient personal banking representative they must have a responsible adult [...] Number to call with questions or concerns [phone] Number to call to cancel their procedure [phone] Carroll Leblanc RN documented in this encounterMercy Health St. [facility]03-24-2025 Telephone encounter Note * Telephone Encounter - Marge Perkins RN - 12/19/2024 6:51 PM EDT Pt called in for x-ray results. I let Pt know they are not back in yet and provider would call her when they are. [facility]03-24-2025 History of Present illness Narrative* Roland [...] PATIENT PRESENTS WITH AN IMPLANTABLE OR ATTACHED WATER RESOURCE ENGINEER: No RADIOLOGY DEPARTMENT: General X-ray: Exam(s) Completed: Chest X-Ray PERIPHERAL IV DATA: Not applicable SIGNED BY: RT Oneyda(R) December 19, 2024 3:53 PM documented in this encounterMercy Health St. [facility]03-24-2025 NoteHNO ID: [id number] Author: ROLAND CAMARGO RT(R) Service: Radiology Author [...] PATIENT PRESENTS WITH AN IMPLANTABLE OR ATTACHED WATER RESOURCE ENGINEER: No RADIOLOGY DEPARTMENT: General X-ray: Exam(s) Completed: Chest X-Ray PERIPHERAL IV DATA: Not applicable SIGNED BY: RT Oneyda(R) December 19, 2024 3:53 [facility]03-24-2025 History of Present illness Narrative* Tara Youngblood, UNA.PROPERTY DISPOSAL OFFICER - 12/19/2024 2:40 PM EDT Chief Complaint Patient presents with: hospital f/up HPI Gracie Banuelos is a 59 year old female who presents here today for Above Complaints. Gracie is an established patient of Dr. Satnam MD. Concerns today.. Hospital follow-up--- [facility] admission from 12/04-12/12 d/t acute hypoxic respiratory [...] help her quit. 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 Chronic recurrent pancreatitis -- had recent surgery [...] disease (HCC) Alcohol dependence in remission ([facility]) 07/10/2015 Alcohol use disorder 08/27/2017 Alcohol-induced pancreatitis Alcoholic hepatitis 05/18/2012 Alcoholic liver disease (HCC) 11/16/2013 Anemia Anxiety with depression Arthritis Asthma Chronic hypoxemic respiratory failure (HCC) COPD (chronic obstructive pulmonary disease) ([facility]) 05/25/2012 DDD (degenerative disc disease), cervical 09/03/2018 [...] 3 severe COPD by GOLD classification ([facility]) 2018 Tobacco use greater than 30 years [...] capsule by mouth at bedtime as needed. lrblvi-eckaqrdg-acggave (CREON 24) 24,000-76,000 -120,000 unit delayed release [...] ICD10: F17.200 - Cessation encouraged. Pt declined community development aide to help with cessation. Pt has [...] Patient agreeable to treatment plan. Tara Youngblood APRN.PROPERTY DISPOSAL OFFICER [address] [place] [address] documented in [address]03-24-2025 NoteHNO ID: [id number] Author: TARA YOUNGBLOOD APRN.CNP Service: ? Author Type: Nurse Practitioner Type: Progress Notes Filed: 12/19/2024 15:33 Note Text: Chief Complaint Patient presents with: hospital f/up HPI Gracie Banuelos is a 59 year old female who presents here today for Above Complaints. Gracie is an established patient of Dr. Satnam MD. Concerns today.. Hospital follow-up--- [facility] admission from 12/04-12/12 d/t acute hypoxic respiratory [...] help her quit. 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 Chronic recurrent pancreatitis -- had recent surgery [...] disease (HCC) Alcohol dependence in remission ([facility]) 07/10/2015 Alcohol use disorder 08/27/2017 Alcohol-induced pancreatitis [...] 3 severe COPD by GOLD classification ([facility]) 2018 Tobacco use greater than 30 years [...] (LOPRESSOR) 25 mg ta (more content not included)...[facility]03-17-2025 Consult note [facility] Medical Records Department [address] [place] [address] Anesthesia Postop Eval II 12/12/24 1751 MR#: [id number] Acct: [id number] Name: GRACIE BANUELOS Rep #:[id number] : 1965 59 From: Jeferson Breaux MD PCP: Dr. Misbah Elkins MD Status:ADM I N Y Race: C Location: [place] [address] 3-1 Anesthesia Postop Eval I Sum Postop Eval Completion status Anesthesia document: Postop Eval 1 completed: Yes Anesthesia Postop Eval I Summary Anesthesia Postop Eval I Summary: Anesthesia Postop Eval I: Assessment Summary Airway patent Yes 12/12/24 13:08 PATTERN CHART WRITER.PKEL Spontaneous unlabored Yes 12/12/24 13:08 PATTERN CHART WRITER.PKEL respirations Mental status Awake,Calm 12/12/24 13:08 PATTERN CHART WRITER.PKEL nausea No 12/12/24 13:08 PATTERN CHART WRITER.PKEL Vomiting No 12/12/24 13:08 PATTERN CHART WRITER.PKEL Anesthesia Postop Eval I: Fluid Summary Crystalloid volume administer 30 12/12/24 13:08 PATTERN CHART WRITER.PKEL (ml) Colloids volume administered ( ml) Blood Product volume administered (ml) Total IV fluid infused 30 12/12/24 13:08 PATTERN CHART WRITER.PKEL Anesthesia Postop Eval I: Summary Notes Anesthesia Complication No 12/12/24 13:08 PATTERN CHART WRITER.PKEL Anesthesia Complication Comment: Post-operative progress note Anesthesia: Postop Eval II Evaluation Mental status: Awake and Calm Pain Level: 1 nausea: No Vomiting: No Complications Anesthesia Complication: No 12/12/24 1751 dillon MENENDEZ> Date _ Jeferson Breaux MD Cosigner Signature: Date CC: ~ Signed [facility]03-17-2025 Discharge summary Author Anastacia Bonilla [facility] Note Date/Time December 12, 2024 3:5 4pm [facility] Medical Records Department [address] [place] [address] Instructions for Home/Discharge Instructions 12/12/24 1547 MR#: [id number] Acct: [id number] Name: GRACIE BANUELOS Rep #:[id number] : 1965 59 From: Anastacia Bonilla MD [...] DO; Dr. Yrn Kahn DO ~ Signed [facility] Work Phone: 1(671) 755-693103-17-2025 Discharge summary Author Anastacia [facility] Note Date/Time December 12, 2024 4:5 7pm [facility] Medical Records Department [address] [place] [address] Discharge Summary 12/12/24 1554 MR#: [id number] Acct: [id number] Name: GRACIE BANUELOS Rep #:[id number] : 1965 59 From: Anastacia Bonilla MD PCP: Dr. Misbah Elkins MD Status:ADM I N Location: [place] [address] Providers Date of Admission: 12/04/24 Date of Discharge: 12/12/24 Primary Care Physician: Dr. Misbah Elkins MD Consultations 12/05/24 09:19 Consult: Laundry Operator Finishing / Pulmonary Medicine Routine Consulting Provider: Intensivists/Pulmonary Med Reason for Consult: respiratory failure EMERGENT Consult: No Notified: Yes Date Notified: 12/05/24 Time Notified: 09:19 Method of Notification: Text 12/09/24 17:42 Consult: Gastroenterology Routine Consulting Provider: [facility] Reason for Consult: dysphagia EMERGENT Consult: [...] Self Care Charges/Coding Visit Charges Inpatient E&M: 64641 Disch Hosp >30min 12/12/24 1610 <Electronically signed [...] MD; Dr. Anastacia Bonilla MD ~* Signed [facility] Work Phone: 1(354) 202-248703-17-2025 Discharge summary [facility] Medical Records Department [address] [place] [address] Discharge Summary 12/12/24 1550 MR#: [id number] Acct: [id number] Name: GRACIE BANUELOS Rep #:[id number] : 1965 59 From: Anastacia Bonilla MD PCP: Dr. Misbah Elkins MD Status:ADM I N Location: [place] [address] Providers Date of Admission: 12/04/24 Date of Discharge: 12/12/24 Primary Care Physician: Dr. Misbah Elkins MD Consultations 12/05/24 09:19 Consult: Laundry Operator Finishing / Pulmonary Medicine Routine Consulting Provider: Intensivists/Pulmonary Med Reason for Consult: respiratory failure EMERGENT Consult: No Notified: Yes Date Notified: 12/05/24 Time Notified: 09:19 Method of Notification: Text 12/09/24 17:42 Consult: Gastroenterology Routine Consulting Provider: [facility] Reason for Consult: dysphagia EMERGENT Consult: [...] Self Care Charges/Coding Visit Charges Inpatient E&M: 10317 Disch Hosp >30min 12/12/24 1610 Cosigner Signature [...] MD; Dr. Anastacia Bonilla MD ~* Signed [facility]03-17-2025 Discharge summary [facility] Medical Records Department [address] [place] [address] Instructions for Home/Discharge Instructions 12/12/24 1547 MR#: [id number] Acct: [id number] Name: GRACIE BANUELOS Rep #:[id number] : 1965 59 From: Anastacia Bonilla MD [...] DO; Dr. Yrn Kahn DO ~ Signed [facility]03-17-2025 [facility]25 Consult note Author Guevara Jimenez [facility] Note Date/Time December 12, 2024 1:0 8pm [facility] Medical Records Department [address] [place] [address] Anesthesia Postop Eval I 12/12/24 1307 MR#: [id number] Acct: [id number] Name: VINFERNIEGRACIE S Rep #:[id number] : 1965 59 From: Guevara Jimenez CRNA PCP: Dr. Misbah Elkins MD Status:ADM I N Y Race: C Location: [place] [address] 3-1 Anesthesia: Postop Eval I Current Vital [...] CRNA Cosigner Signature: Date CC: ~ Signed [facility] Work Phone: 1(177) 704-974403-17-2025 Progress note Author Marshal Friend [facility] Note Date/Time December 12, 2024 12: 39pm [facility] Medical Records Department [address] [facility] [place] [address] Progress Note 12/12/24 1237 MR#: [id number] Acct: [id number] Name: GRACIE BANUELOS Rep #:[id number] : 1965 59 From: Marshal Segura DO PCP: Dr. Misbah Elkins MD Status:ADM I N Location: [place] [address] Progress Note Patient has been n.p.o. for [...] ASA of 3. Visit Charges Inpatient E&M: 65152 Subs Hosp L2 12/12/24 1239 <Electronically signed by Marshal Segura DO> Marshal Segura DO Cosigner Signature (if applicable): CC: ~ Signed [facility] Work Phone: 1(572) 195-274903-17-2025 Consult note Author Jeferson Breaux [facility] Note Date/Time December 12, 2024 12: 15pm [facility] Medical Records Department [address] [place] [address] Pre-Anesthesia Evaluation 12/12/24 1203 MR#: [id number] Acct: [id number] Name: GRACIE BANUELOS Rep #:[id number] : 1965 59 From: Jeferson Breaux MD PCP: Dr. Misbah Elkins MD Status:ADM I N Y Race: C Location: [place] [address] 3-1 ASA Classification* ASA Classification ASA Classification: [...] possible dilation. Anesthesia History Anesthesia History - pulverizer: Anesthesia History - pulverizer Hx Hospitalization Yes 08/12/20 11:23 Any Problems [...] sips of water?: Yes PONV PONV - pulverizer: PONV - pulverizer Female HX of Motion Sickness HX of N/V After Surgery Non-Smoker Duration of Surgery greater than 60 minutes Number of Risk Factors PONV Score Height & Weight Height & Weight: Anesthesia: Height & Weight Height 5 ft 3 in 12/11/24 13:34 Weight: 60.7 kg 12/12/24 05:02 Body Mass Index (BMI) 23.7 12/12/24 05:02 Respiratory Assessment Respiratory Assessment - pulverizer: Respiratory Tract Infection Hx - pulverizer Hx Respiratory Tract Infection No 06/12/21 02:55 STOP Sleep Apnea STOP Sleep Apnea - pulverizer: STOP Sleep Apnea - pulverizer Hx Hypertension Yes 12/04/24 20:21 Hx Sleep [...] Tobacco Use History Tobacco Use History - pulverizer: Tobacco Use History - pulverizer Tobacco Use Cigarettes 01/22/21 20:43 Smoking Status Heavy Smoker (>10/day) 12/06/24 05:11 Hx Tobacco Use Yes 12/04/24 20:21 Years Smoking Packs Smoked per Day Smoking Cessation Date was within the last 15 years Hx Smoking Cessation Date Hx Smoking Cessation No 12/04/24 20:21 Counseling Hematologic Medial History Hematologic Hx - pulverizer: 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 12/12/24 1805 <Electronically signed by Jeferson carranza MD> Date _ Jeferson Kancherla MD Cosigner Signature: Date CC: ~ Signed [facility] Work Phone: 1(754) 471-874403-17-2025 Progress note Author Gonzalo Sebastian [facility] Note Date/Time December 12, 2024 11: 29am [facility] Medical Records Department [address] [address] Progress Note - Laundry Operator Finishing 12/12/24 1000 MR#: [id number] Acct: [id number] Name: GRACIE BANUELOS Rep #:[id number] : 1965 59 From: Gonzalo Sebastian DO PCP: Dr. Misbah Elkins MD Status:ADM I N Location: [place] [address] Assessment & Plan Assessment/Plan (1) COPD with [...] medicationsas indicated. This note was generated with Wurldtech dictation software. It may contain incorrectwords, spelling, [...] Affect: anxious Charges/Coding Visit Charges Inpatient E&M: 73600 Subs Hosp L2 12/12/24 1129 <Electronically signed by Gonzalo Sebastian DO> Cosigner Signature (if applicable): CC: ~ Signed [facility] Work Phone: 1(329) 131-324503-17-2025 Consult note [facility] Medical Records Department [address] [place] [address] Anesthesia Postop Eval I 12/12/24 1307 MR#: [id number] Acct: [id number] Name: GRACIE BANUELOS Rep #:[id number] : 1965 59 From: Guevara Jimenez CRNA PCP: Dr. Misbah Elkins MD Status:ADM I N Y Race: C Location: [place] [address] Anesthesia: Postop Eval I Current Vital Signs [...] Eval 1 completed: Yes 12/12/24 1308 y PATTERN CHART WRITER> Date _ Guevara Jimenez CRNA Cosigner Signature: Date CC: ~ Signed [facility]03-17-2025 Procedure note [facility] Medical Records Department [address] [place] [address] EGD Report MR#: [id number] Acct: [id number] Name: GRACIE BANUELOS Rep #:[id number] : 1965 59 From: Marshal Segura DO [...] present medications. Procedure Code(s): --- Professional --- 35029, Esophagogastroduodenoscopy, flexible, transoral; with insertion of guide wire followed by passage of dilator(s) through esophagus over guide wire CPT copyright 202 [employer]. All rights reserved. The codes documented in this report are preliminary and upon knocker out review may be revised to meet current compliance requirements. Marshal Segura DO 12/12/2024 1:07:14 PM This report has been signed electronically. Number of Addenda: 0 Note Initiated On: 12/12/2024 12:40 PM 12/12/24 1307 Date _ Marshal Legerigner Signature: Date (if indicated) CC: Dr. Misbah Elkins MD; Marshal Segura DO ~ Date Dictated: 12/12/24 1240 Date Transcribed: Photo Optics Technician: RF Signed [facility]03-17-2025 Procedure note [facility] Medical Records Department [address] [place] [address] Operative Report - CC Letter MR#: [id number] Acct: [id number] Name: GRACIE BANUELOS Rep #:[id number] : 1965 59 From: Marshal Segura DO PCP: Dr. Misabh Elkins MD Status:ADM I N 12/12/2024 Misbah Elkins [address] [place] [id number] Re : Upper GI endoscopy procedure for [...] ~ Date Dictated: 12/12/24 1240 Date Transcribed: Photo Optics Technician: RF Signed [facility]03-17-2025 Progress note [facility] Medical Records Department [address] [place] [address] Progress Note 12/12/24 1237 MR#: [id number] Acct: [id number] Name: GRACIE BANUELOS Rep #:[id number] : 1965 59 From: Marshal Segura DO PCP: Dr. Misbah Elkins MD Status:ADM I N Location: [place] [address] Progress Note Patient has been n.p.o. for [...] ASA of 3. Visit Charges Inpatient E&M: 85406 Subs Hosp L2 12/12/24 1239 Marshal Martinez Signature (if applicable): CC: ~ Signed [facility]03-17-2025 Consult note [facility] Medical Records Department [address] [place] [address] Pre-Anesthesia Evaluation 12/12/24 1203 MR#: [id number] Acct: [id number] Name: GRACIE BANUELOS Rep #:[id number] : 1965 59 From: Jeferson Breaux MD PCP: Dr. Misbah Elkins MD Status:ADM I N Y Race: C Location: [place] [address] 3-1 ASA Classification* ASA Classification ASA Classification: [...] possible dilation. Anesthesia History Anesthesia History - pulverizer: Anesthesia History - pulverizer Hx Hospitalization Yes 08/12/20 11:23 Any Problems [...] sips of water?: Yes PONV PONV - pulverizer: PONV - pulverizer Female HX of Motion Sickness HX of N/V After Surgery Non-Smoker Duration of Surgery greater than 60 minutes Number of Risk Factors PONV Score Height & Weight Height & Weight: Anesthesia: Height & Weight Height 5 ft 3 in 12/11/24 13:34 Weight: 60.7 kg 12/12/24 05:02 Body Mass Index (BMI) 23.7 12/12/24 05:02 Respiratory Assessment Respiratory Assessment - pulverizer: Respiratory Tract Infection Hx - pulverizer Hx Respiratory Tract Infection No 06/12/21 02:55 STOP Sleep Apnea STOP Sleep Apnea - pulverizer: STOP Sleep Apnea - pulverizer Hx Hypertension Yes 12/04/24 20:21 Hx Sleep [...] Tobacco Use History Tobacco Use History - pulverizer: Tobacco Use History - pulverizer Tobacco Use Cigarettes 01/22/21 20:43 Smoking Status Heavy Smoker (>10/day) 12/06/24 05:11 Hx Tobacco Use Yes 12/04/24 20:21 Years Smoking Packs Smoked per Day Smoking Cessation Date was within the last 15 years Hx Smoking Cessation Date Hx Smoking Cessation No 12/04/24 20:21 Counseling Hematologic Medial History Hematologic Hx - pulverizer: 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 Hx of Blood Transfusion No 12/04/24 20:21 [...] confused, unrespo /Reproduction History /Reproductive History - pulverizer: /Reproductive Hx- pulverizer Hx Now Gestational Age (in weeks): EDC: [...] Allergy Other Verified 12/04/24 15:55 hydrocodone (From [place]) AdvReac Itching Verified 12/04/24 15:55 Family History [...] MD Cosigner Signature: Date CC: ~ Signed [facility]03-17-2025 Progress note [facility] Medical Records Department [address] [place] [address] Progress Note - Laundry Operator Finishing 12/12/24 1000 MR#: [id number] Acct: [id number] Name: GRACIE BANUELOS Rep #:[id number] : 1965 59 From: Gonzalo Sebastian DO PCP: Dr. Misbah Elkins MD Status:ADM I N Location: [place] [address] Assessment & Plan Assessment/Plan (1) COPD with [...] medicationsas indicated. This note was generated with Wurld[employer] dictation software. It may contain incorrectwords, spelling, [...] Affect: anxious Charges/Coding Visit Charges Inpatient E&M: 83883 [facility] Hosp 12/12/24 1129 Cosigner Signature (if applicable): CC: ~ Signed [facility]03-16-2025 Progress note Author Anastacia [facility] Note Date/Time December 11, 2024 11: 50[facility] Medical Records Department [address] [place] [address] Progress Note 12/11/24 1134 MR#: [id number] Acct: [id number] Name: GRACIE BANUELOS Rep #:[id number] : 1965 59 From: Anastacia Bonilla MD PCP: Dr. Misbah Elkins MD Status:ADM I N Location: [place] [address] Subjective Subjective Patient seen and examined. She [...] prophylaxis: lovenox Charges/Coding Visit Charges Inpatient E&M: 56601 Subs Hosp L2 12/11/24 1150 <Electronically signed by Anastacia Bonilla MD> Anastacia Bonilla MD Cosigner Signature (if applicable): CC: ~ Signed [facility] Work Phone: 1(472) 473-118903-16-2025 Progress note [facility] Medical Records Department [address] [place] [address] Progress Note 12/11/24 1134 MR#: [id number] Acct: [id number] Name: GRACIE BANUELOS Rep #:[id number] : 1965 59 From: Anastacia Bonilla MD PCP: Dr. Misbah Elkins MD Status:ADM I N Location: [place] [address] Subjective Subjective Patient seen and examined. She [...] prophylaxis: lovenox Charges/Coding Visit Charges Inpatient E&M: 16965 Subs Hosp L2 12/11/24 1150 Anastacia Bonilla MD Cosigner Signature (if applicable): CC: ~ Signed [facility]03-15-2025 Progress note Author Anastacia [facility] Note Date/Time December 10, 2024 12: 56pm [facility] Medical Records Department [address] [place] [address] Progress Note 12/10/24 1251 MR#: [id number] Acct: [id number] Name: GRACIE BANUELOS Rep #:[id number] : 1965 59 From: Anastacia Bonilla MD PCP: Dr. Msibah Elkins MD Status:ADM I N Location: [place] [address] Subjective Subjective Patient seen and examined. She [...] prophylaxis: lovenox Charges/Coding Visit Charges Inpatient E&M: 23606 Subs Hosp L2 12/10/24 1256 <Electronically signed by Anastacia Bonilla MD> Anastacia Bonilla MD Cosigner Signature (if applicable): CC: ~ Signed [facility] Work Phone: 1(390) 577-544303-15-2025 Progress note [facility] Medical Records Department [address] [place] [address] Progress Note 12/10/24 1251 MR#: [id number] Acct: [id number] Name: VINGRACIE S Rep #:[id number] : 1965 59 From: Anastacia Bonilla MD PCP: Dr. Misbah Elkins MD Status:ADM I N Location: [place] [address] Subjective Subjective Patient seen and examined. She [...] prophylaxis: lovenox Charges/Coding Visit Charges Inpatient E&M: 78903 Subs Hosp L2 12/10/24 1256 Anastacia Bonilla MD Cosigner Signature (if applicable): CC: ~ Signed [facility]03-14-2025 Progress note Author Anastacia [facility] Note Date/Time December 09, 2024 4:3 3pm [facility] Medical Records Department [address] [place] [address] Progress Note 12/09/24 1351 MR#: [id number] Acct: [id number] Name: GRACIE BANUELOS Rep #:[id number] : 1965 59 From: Anastacia Bonilla MD PCP: Dr. Misbah Elkins MD Status:ADM I N Location: [place] [address] Subjective Subjective Patient seen and examined. She [...] (MDRD) Non-Af 78, BUN/Creatinine Ratio 40.8 H, [id number] H, Calcium 9.8 Micro: Microbiology 12/07/24 14:40 [...] prophylaxis: lovenox Charges/Coding Visit Charges Inpatient E&M: 83690 Subs Hosp L2 12/09/24 1633 <Electronically signed by Anastacia Bonilla MD> Anastacia Bonilla MD Cosigner Signature (if applicable): CC: ~ Signed [facility] Work Phone: 1([phone] 130-221903-14-2025 Progress note [facility] Medical Records Department [address] [place] [address] Progress Note 12/09/24 1351 MR#: [id number] Acct: [id number] Name: GRACIE BANUELOS Rep #:[id number] : 1965 59 From: Anastacia Bonilla MD PCP: Dr. Misbah Elkins MD Status:ADM I N Location: [place] [address] Subjective Subjective Patient seen and examined. She [...] (MDRD) Non-Af 78, BUN/Creatinine Ratio 40.8 H, Qixtrkr894 H, Calcium 9.8 Micro: Microbiology 12/07/24 14:40 [...] prophylaxis: lovenox Charges/Coding Visit Charges Inpatient E&M: 69700 Subs Hosp L2 12/09/24 1633 Anastacia Bonilla MD Cosigner Signature (if applicable): CC: ~ Signed [facility]03-14-2025 Progress note Author Gonzalo Seabstian [facility] Note Date/Time December 09, 2024 11: [address] [place] [address] System Medical Records Department [address] [place] [address] Progress Note - Laundry Operator Finishing 12/09/24 0809 MR#: [id number] Acct: [id number] Name: GRACIE BANUELOS Rep #:[id number] : 1965 59 From: Gonzalo Sebastian DO PCP: Dr. Misbah Elkins MD Status:ADM I N Location: [place] [address] Assessment & Plan Assessment/Plan (1) COPD with [...] medicationsas indicated. This note was generated with [employer]urld[employer] dictation software. It may contain incorrectwords, spelling, [...] dysfunction. Trivial mitral valve insufficiency. Ordering Physician: Goznalo Sebastian Referring Physician: MISBAH ELKINS Performed By: [...] Affect: anxious Charges/Coding Visit Charges Inpatient E&M: 86776 Subs Hosp L2 12/09/24 1116 <Electronically signed by Gonzalo Sebastian DO> Cosigner Signature (if applicable): CC: ~ Signed [facility] Work Phone: 1(415) 812-255403-14-2025 Progress note [facility] Medical Records Department [address] [place] [address] Progress Note - Laundry Operator Finishing 12/09/24 0809 MR#: [id number] Acct: [id number] Name: GRACIE BANUELOS Rep #:[id number] : 1965 59 From: Gonzalo Sebastian DO PCP: Dr. Misbah Elkins MD Status:ADM I N Location: [place] [address] Assessment & Plan Assessment/Plan (1) COPD with [...] medicationsas indicated. This note was generated with [employer] dictation software. It may contain incorrectwords, spelling, [...] Affect: anxious Charges/Coding Visit Charges Inpatient E&M: 07225 Subs Hosp L2 12/09/24 1116 Cosigner Signature (if applicable): CC: ~ Signed [facility]03-13-2025 Progress note Author Yrn Kahn [facility] Note Date/Time December 08, 2024 4:2 3pm [facility] Medical Records Department [address] [place] [address] Progress Note - Hospitalist 12/08/24 1620 MR#: [id number] Acct: [id number] Name: GRACIE BANUELOS Rep #:[id number] : 1965 59 From: Ynr Kahn DO PCP: Dr. Misbah Elkins MD Status:ADM I N Location: [place] [address] Reason for Visit Reason for Visit: Diagnoses [...] 35 minutes Charges/Coding Visit Charges Inpatient E&M: 29446 Subs Hosp L2 12/08/24 1623 <Electronically signed by Yrn Kahn DO> Cosigner Signature (if applicable): CC: ~ Signed [facility] Work Phone: 1(167) 726-790003-13-2025 Progress note [facility] Medical Records Department [address] [place] [address] Progress Note - Hospitalist 12/08/24 1620 MR#: [id number] Acct: [id number] Name: GRACIE BANUELOS Rep #:[id number] : 1965 59 From: Yrn Kahn DO PCP: Dr. Misbah Elkins MD Status:ADM I N Location: [place] [address] Reason for Visit Reason for Visit: Diagnoses [...] 35 minutes Charges/Coding Visit Charges Inpatient E&M: 47868 Subs Hosp L2 12/08/24 1623 Cosigner Signature (if applicable): CC: ~ Signed [facility]03-13-2025 Procedure note [facility] Speech Pathology [address] [place] [address] Modified Barium Swallow Study MR#: [id number] Acct: [id number] Name: GRACIE BANUELOS Rep #:[id number] : 1965 59 From: Maksim Ramos, [facility]-CHIEF NURSE EXECUTIVE Modified Barium Swallow Patient Information Study Date: [...] History: Pt presented to the ED at [facility] on 12/04/2024 with the chief complaint of [...] Result: 3= enters airways/above vocal folds/not ejected [place] Thick Liquid via small single sip: cup: [...] Status Active ST Patient: Active Contact Information [facility] Speech Therapy:: Maksim Up M.A. CCC-CHIEF NURSE EXECUTIVE? Speech-Language Pathologist?? [facility] [address] [place] [address]? [email or web address]?? [phone] 12/08/24 1525 CARLOS Duenas-CHIEF NURSE EXECUTIVE> Date/Time Maksim Up M.A. CCC-CHIEF NURSE EXECUTIVE Co-Signature Required for all Medicare patients Date/Time Co-Signature CC: ~ [facility]03-13-2025 Progress note Author Gonzalo Sebastian [facility] Note Date/Time December 08, 2024 10: 27am [facility] Medical Records Department [address] [place] [address] Progress Note - Laundry Operator Finishing 12/08/24 0944 MR#: [id number] Acct: [id number] Name: GRACIE BANUELOS Rep #:[id number] : 1965 59 From: Gonzalo Sebastian DO PCP: Dr. Misbah Elkins MD Status:ADM I N Location: [place] [id number]- 1 Assessment & Plan Assessment/Plan (1) COPD [...] medicationsas indicated. This note was generated with Wur[employer] dictation software. It may contain incorrectwords, spelling, [...] Affect: anxious Charges/Coding Visit Charges Inpatient E&M: 78589 Subs Hosp L2 12/08/24 1027 <Electronically signed by Gonzalo Sebastian DO> Cosigner Signature (if applicable): CC: ~ Signed [facility] Work Phone: 1(618) 762-639003-13-2025 Progress note [facility] Medical Records Department [address] [place] [address] Progress Note - Laundry Operator Finishing 12/08/24 0944 MR#: [id number] Acct: [id number] Name: GRACIE BANUELOS Rep #:[id number] : 1965 59 From: Gonzalo Sebastian DO PCP: Dr. Misbah Elkins MD Status:ADM I N Location: [place] [address] Assessment & Plan Assessment/Plan (1) COPD with [...] medicationsas indicated. This note was generated with Ethertronicsation software. It may contain incorrectwords, spelling, and [...] Affect: anxious Charges/Coding Visit Charges Inpatient E&M: 04116 Subs Hosp L2 12/08/24 1027 Cosigner Signature (if applicable): CC: ~ Signed [facility]03-12-2025 Progress note Author Yrn Kahn [facility] Note Date/Time December 07, 2024 5:4 7pm [facility] Medical Records Department [address] [place] [address] Progress Note - Hospitalist 12/07/24 1746 MR#: [id number] Acct: [id number] Name: GRACIE BANUELOS Rep #:[id number] : 1965 59 From: Yrn Kahn DO PCP: Dr. Misbah Elkins MD Status:ADM I N Location: [place] [address] Reason for Visit Reason for Visit: Diagnoses [...] 35 minutes Charges/Coding Visit Charges Inpatient E&M: 03273 Subs Hosp L2 12/07/24 3927 <Electronically signed by Yrn Kahn DO> Cosigner Signature (if applicable): CC: ~ Signed [facility] Work Phone: 1(136) 730-851403-12-2025 Progress note [facility] Medical Records Department [address] [place] [address] Progress Note - Hospitalist 12/07/24 1746 MR#: [id number] Acct: [id number] Name: GRACIE BANUELOS Rep #:[id number] : 1965 59 From: Yrn Kahn DO PCP: Dr. Misbah Elkins MD Status:ADM I N Location: [place] [address] Reason for Visit Reason for Visit: Diagnoses [...] 35 minutes Charges/Coding Visit Charges Inpatient E&M: 67837 Subs Hosp L2 12/07/24 0472 Cosigner Signature (if applicable): CC: ~ Signed [facility]03-12-2025 Progress note Author Gonzalo Sebastian [facility] Note Date/Time December 07, 2024 12: 23pm [facility] Medical Records Department [address] [place] [address] Progress Note - Laundry Operator Finishing 12/07/24 0959 MR#: [id number] Acct: [id number] Name: GRACIE BANUELOS Rep #:[id number] : 1965 59 From: Gonzalo Sebastian DO PCP: Dr. Misbah Elkins MD Status:ADM I N Location: [place] [address] Assessment & Plan Assessment/Plan (1) COPD with [...] medicationsas indicated. This note was generated with Ethertron[employer]ation software. It may contain incorrectwords, spelling, and [...] (Auto) 88.4 H, Lymph % (Auto) 4.5L, [place] % (Auto) 6.0, Eos % (Auto) 0.0, [...] Affect: anxious Charges/Coding Visit Charges Inpatient E&M: 86957 Subs Hosp L2 12/07/24 1223 <Electronically signed by Gonzalo Sebastian DO> Cosigner Signature (if applicable): CC: ~ Signed [facility] Work Phone: 1(556) 252-256903-12-2025 Progress note [facility] Medical Records Department [address] [place] [address] Progress Note - Laundry Operator Finishing 12/07/24 0959 MR#: [id number] Acct: [id number] Name: GRACIE BANUELOS Rep #:[id number] : 1965 59 From: Gonzalo Sebastian DO PCP: Dr. Misbah Elkins MD Status:ADM I N Location: [place] [address] Assessment & Plan Assessment/Plan (1) COPD with [...] medicationsas indicated. This note was generated with [employer] dictation software. It may contain incorrectwords, spelling, [...] (Auto) 88.4 H, Lymph % (Auto) 4.5L, [place] % (Auto) 6.0, Eos % (Auto) 0.0, [...] Affect: anxious Charges/Coding Visit Charges Inpatient E&M: 25617 Subs Hosp L2 12/07/24 1223 Cosigner Signature (if applicable): CC: ~ Signed [facility]03-11-2025 Progress note Author Yrn Kahn [facility] Note Date/Time December 06, 2024 8:2 6pm [facility] Medical Records Department [address] [place] [address] Progress Note - Hospitalist 12/06/242023 MR#: [id number] Acct: [id number] Name: GRACIE BANUELOS Rep #:[id number] : 1965 59 From: Yrn Kahn DO PCP: Dr. Misbah Elkins MD Status:ADM I N Location: [place] [address] Reason for Visit Reason for Visit: Diagnoses [...] (Auto) 88.4 H, Lymph % (Auto) 4.5L, [place] % (Auto) 6.0, Eos % (Auto) 0.0, [...] 35 minutes Charges/Coding Visit Charges Inpatient E&M: 07463 Subs Hosp L2 12/06/242025 <Electronically signed by Yrn Tereletsky DO> Cosigner Signature (if applicable): CC: ~ Signed [facility] Work Phone: 1(844) 682-595603-11-2025 Progress note Author Yrn Pascalgrand [facility] Note Date/Time December 06, 2024 8:2 4pm [facility] Medical Records Department [address] [place] [address] Progress Note - Hospitalist 12/05/241943 MR#: [id number] Acct: [id number] Name: GRACIE BANUELOS Rep #:[id number] : 1965 59 From: Yrn Kahn DO PCP: Dr. Misbah Elkins MD Status:ADM I N Location: [place] [address] Reason for Visit Reason for Visit: Diagnoses [...] 89.0 H, Lymph % (Auto) 5.1 L, [place] % (Auto) 4.0, Eos % (Auto) 0.1, [...] 50 minutes Charges/Coding Visit Charges Inpatient E&M: 35261 Subs Hosp L3 12/06/242023 <Electronically signed by Yrn Kahn DO> Cosigner Signature (if applicable): CC: ~ Signed [facility] Work Phone: 1([phone]) 154-727403-11-2025 Progress note [facility] Medical Records Department [address] [place] [address] Progress Note - Hospitalist 12/06/242023 MR#: [id number] Acct: [id number] Name: GRACIE BANUELOS Rep #:[id number] : 1965 59 From: Yrn Kahn DO PCP: Dr. Misbah Elkins MD Status:ADM I N Location: [place] [address] Reason for Visit Reason for Visit: Diagnoses [...] (Auto) 88.4 H, Lymph % (Auto) 4.5L, [place] % (Auto) 6.0, Eos % (Auto) 0.0, [...] 35 minutes Charges/Coding Visit Charges Inpatient E&M: 36723 Subs Hosp L2 12/06/242025 Cosigner Signature (if applicable): CC: ~ Signed [facility]03-11-2025 Progress note [facility] Medical Records Department [address] [place] [address] Progress Note - Hospitalist 12/05/241943 MR#: [id number] Acct: [id number] Name: GRACIE BANUELOS Rep #:[id number] : 1965 59 From: Yrn Kahn DO PCP: Dr. Misbah Elkins MD Status:ADM I N Location: [place] [address] Reason for Visit Reason for Visit: Diagnoses [...] 89.0 H, Lymph % (Auto) 5.1 L, Hernando % (Auto) 4.0, Eos % (Auto) 0.1, [...] 50 minutes Charges/Coding Visit Charges Inpatient E&M: 94360 Subs Hosp L3 12/06/242023 Cosigner Signature (if applicable): CC: ~ Signed [facility]03-11-2025 Progress note Author Gonzalo Sebastian [facility] Note Date/Time December 06, 2024 11: 38am [facility] Medical Records Department [address] [place] [address] Progress Note - Laundry Operator Finishing 12/06/24 1134 MR#: [id number] Acct: [id number] Name: GRACIE BANUELOS Rep #:[id number] : 1965 59 From: Gonzalo Sebastian DO PCP: Dr. Misbah Elkins MD Status:ADM I N Location: [place] [address] Assessment & Plan Assessment/Plan (1) COPD with [...] medicationsas indicated. This note was generated with [employer]urld[employer] dictation software. It may contain incorrectwords, spelling, [...] (Auto) 88.4 H, Lymph % (Auto) 4.5L, Hernando % (Auto) 6.0, Eos % (Auto) 0.0, [...] Affect: anxious Charges/Coding Visit Charges Inpatient E&M: 98254 Subs Hosp L2 12/06/24 1138 <Electronically signed by Gonzalo Sebastian DO> Cosigner Signature (if applicable): CC: ~ Signed [facility] Work Phone: 1(889) 925-335003-11-2025 Progress note [facility] Medical Records Department [address] [place] [address] Progress Note - Laundry Operator Finishing 12/06/24 1136 MR#: [id number] Acct: [id number] Name: GRACIE BANUELOS Rep #:[id number] : 1965 59 From: Gonzalo Sebastian DO PCP: Dr. Misbah Elkins MD Status:ADM I N Location: [place] [address] Assessment & Plan Assessment/Plan (1) COPD with [...] medicationsas indicated. This note was generated with [employer]ur[employer] dictation software. It may contain incorrectwords, spelling, [...] (Auto) 88.4 H, Lymph % (Auto) 4.5L, Hernando % (Auto) 6.0, Eos % (Auto) 0.0, [...] Affect: anxious Charges/Coding Visit Charges Inpatient E&M: 69816 Subs Hosp L2 12/06/24 1138 Cosigner Signature (if applicable): CC: ~ Signed [facility]03-10-2025 Consult note Author Gonzalo Sebastian [facility] Note Date/Time December 05, 2024 1:2 4pm [facility] Medical Records Department [address] [place] [address] Consultation - Laundry Operator Finishing 12/05/24 1314 MR#: [id number] Acct: [id number] Name: GRACIE BANUELOS Rep #:[id number] : 1965 59 From: Gonzalo Sebastian DO PCP: Dr. Misbah Elkins MD Status:ADM I N Location: [place] [address] Assessment & Plan Assessment/Plan (1) COPD with [...] should be noted that the patient had [facility] hospital admission in October 2022 in the setting of a panic attack with generalized anxiety disorder leading to acute decompensation in her respiratory status. 2. Chronic tobacco dependency/bipolar disorder/depression/anxiety/chronic pancreatitis Complicates care, management, recovery and prognosis. Continue home medicationsas indicated. This note was generated with Ethertronicsation software. It may contain incorrectwords, spelling, and [...] if she was being suffocated. [facility] Medical History Pancreatic stones HLD (hyperlipidemia) [...] Allergy Other Verified 12/04/24 15:55 hydrocodone (From [place]) AdvReac Itching Verified 12/04/24 15:55 Family History [...] 80.5 H, Lymph % (Auto) 6.8 L, Hernando % (Auto) 10.4 H, Eos % (Auto) [...] 89.0 H, Lymph % (Auto) 5.1 L, Hernando % (Auto) 4.0, Eos % (Auto) 0.1, [...] Location: [facility] Charges/Coding Visit Charges Inpatient E&M: 57854 Init Hosp L3 12/05/24 1324 <Electronically signed by Gonzalo Sebastian DO> Cosigner Signature (if applicable): CC: Dr. Misbah Elkins MD~ Signed [facility] Work Phone: 1(807) 506-293703-10-2025 Consult note [facility] Medical Records Department [address] [place] [address] Consultation - Laundry Operator Finishing 12/05/24 1314 MR#: [id number] Acct: [id number] Name: GRACIE BANUELOS Rep #:[id number] : 1965 59 From: Gonzalo Sebastian DO PCP: Dr. Misbah Elkins MD Status:ADM I N Location: [place] [address] Assessment & Plan Assessment/Plan (1) COPD with [...] should be noted that the patient had [facility] in October 2022 in the setting of a panic attack with generalized anxiety disorder leading to acute decompensation in her respiratory status. 2. Chronic tobacco dependency/bipolar disorder/depression/anxiety/chronic pancreatitis Complicates care, management, recovery and prognosis. Continue home medicationsas indicated. This note was generated with Ethertronicsation software. It may contain incorrectwords, spelling, and [...] if she was being suffocated. [facility] Medical History Pancreatic stones HLD (hyperlipidemia) [...] Allergy Other Verified 12/04/24 15:55 hydrocodone (From [place]) AdvReac Itching Verified 12/04/24 15:55 Family History [...] 80.5 H, Lymph % (Auto) 6.8 L, Hernando % (Auto) 10.4 H, Eos % (Auto) [...] 89.0 H, Lymph % (Auto) 5.1 L, Hernando % (Auto) 4.0, Eos % (Auto) 0.1, [...] Location: [facility] Charges/Coding Visit Charges Inpatient E&M: 40280 Init Hosp L3 12/05/24 1324 Cosigner Signature (if applicable): CC: Dr. Misbah Elkins MD~ Signed [facility]03-10-2025 Telephone encounter Note* Telephone Encounter - Juan Senior APRN.PROPERTY DISPOSAL OFFICER - 12/05/2024 10:49 AM EDT Called to follow up with patient after EUS on 12/01. No answer, left voicemail with call back number. [facility] Work Phone: [phone]) [phone] Miscellaneous Notes* Telephone Encounter - Juan Senior APRN.CNP - 12/05/2024 10:49 AM EDT Called to follow up with patient after EUS on 12/01. No answer, left voicemail with call back number. documented in [facility] History and physical note Author Aleta Aguayo [facility] Note Date/Time December 04, 2024 9:09 pm [facility] Medical Records Department [address] [place] [address] H&P Exam - Hospitalist 12/04/24 1804 MR#: [id number] Acct: [id number] Name: GRACIE BANUELOS Rep #:[id number] : 1965 59 From: Aleta Aguayo DO PCP: Dr. Misbah Elkins MD Status:ADM I N Location: [place] [address] HPI - General General Date of Admission: 12/04/24 Date of Service: 12/04/24 Chief Complaint: Shortness of Breath HPI Narrative GRACIE BANUELOS, is a 59 F who presented to the ED at [facility] on 12/04/2024 with the chief complaint of SOB. Pt has a h/o chronic pancreatitis and had a pancreatic block done at [facility] Thu of last week as [...] waiting abdominal pain despite procedure done at [facility] and has follow-up with them upcoming. [...] request for admission was made. [facility] Medical History Pancreatic stones HLD (hyperlipidemia) [...] Allergy Other Verified 12/04/24 15:55 hydrocodone (From [place]) AdvReac Itching Verified 12/04/24 15:55 Family History [...] 80.5 H, Lymph % (Auto) 6.8 L, Hernando % (Auto) 10.4 H, Eos % (Auto) [...] of admission Charges/Coding Visit Charges Inpatient E&M: 49488 Init Hosp L2 12/04/241 <Electronically signed by Aleta Aguayo DO> Cosigner Signature (if applicable): CC: Dr. Misbah Elkins MD; Dr. Aleta Aguayo DO~ Signed [facility] Work Phone: 1(992) 651-657603-09-2025 History and physical note [facility] Medical Records Department [address] [place] [address] H&P Exam - Hospitalist 12/04/24 1804 MR#: [id number] Acct: [id number] Name: GRACIE BANUELOS Rep #:[id number] : 1965 59 From: Aleta Aguayo DO PCP: Dr. Misbah Elkins MD Status:ADM I N Location: [place] [address] HPI - General General Date of Admission: 12/04/24 Date of Service: 12/04/24 Chief Complaint: Shortness of Breath HPI Narrative GRACIE BANUELOS, is a 59 F who presented to the ED at [facility] on 12/04/2024 with the chief complaint of SOB.Pt has a h/o chronic pancreatitis and had a pancreatic block done at [facility] Thu of last week as [...] still waiting abdominal pain despiteprocedure done at [facility] and has follow-up with them upcoming. [...] request for admission was made. [facility] Medical History Pancreatic stones HLD (hyperlipidemia) [...] Allergy Other Verified 12/04/24 15:55 hydrocodone (From [place]) AdvReac Itching Verified 12/04/24 15:55 Family History [...] 80.5 H, Lymph % (Auto) 6.8 L, Hernando % (Auto) 10.4 H, Eos % (Auto) [...] of admission Charges/Coding Visit Charges Inpatient E&M: 30192 Init Hosp L2 12/04/242 Cosigner Signature (if applicable): CC: Dr. Misbah Elkins MD; Dr. Aleta Aguayo, DO~ Signed [facility]03-09-2025 Discharge summary Author Franco Inman [facility] Note Date/Time December 04, 2024 6:46 pm [facility] Medical Records Department [address] [place] [address] Emergency Department Summary 12/04/24 MR#: [id number] Acct: [id number] Name: GRACIE BANUELOS Rep #:[id number] : 1965 59 From: Franco Inman MD PCP: Dr. Misbah Elkins MD Status:ADM I N Location: [place] [address] HPI History of Present Illness Chief Complaint: [...] had a pancreatic block done at the [facility] was discharged the same day. She [...] Allergy Other Verified 12/04/24 15:55 hydrocodone (From [place]) AdvReac Itching Verified 12/04/24 15:55 Family History [...] Back nontender. Moving all 4 extremities. Normal lead bi developer strength. Normal dorsi plantarflexion. Calves are nontender [...] 80.5 H Lymph % (Auto) 6.8 L Hernando % (Auto) 10.4 H Eos % (Auto) [...] rate of 121. No acute signs of SD or ischemia. No dysrhythmia. Discharge Plan Dx/Rx/DC Orders Clinical Impression: Viral URI, COPD exacerbation, Hypoxia, Chronic pancreatitis Disposition Disposition: Acute Care Hospital [facility] What to do if you have Problems For any increased pain, shortness of breath, bleeding, nausea or vomiting, chestpain, or any unexpected problems, contact your Primary Care Provider. Call [facility] ([phone]) or report to the closest Emergency Room. Call 911 if necessary. 12/04/241845 <Electronically signed by Franco Inman MD> Cosigner Signature (if applicable): CC: Dr. Misbah Elkins MD ~ Signed [facility] Work Phone: 1(355) 407-730303-09-2025 Evaluation note* Diagnosis Onset Date Resolution Status Admit Date Acute hypoxic respiratory failure acute December 04, 2024 6:03pm Pulmonary nodule acute November 6:03pm Stenosis of left subclavian artery acute December 04, 2024 6:03pm Chronic pancreatitis chronic [facility] 2024 6:03pm COPD with acute exacerbation chronic December 04, 2024 6:03pm [facility] Work Phone: 1([phone]) 887-501503-09-2025 Evaluation note* Diagnosis Onset Date Resolution Status [...] 23, 2024 9:59am Anxiety and depression chronic [facility] 2024 9:59am Asthma chronic December 23 9:59am Chronic pancreatitis chronic [facility] 2024 9:59am Chronic respiratory failure with hypoxia chronic December 23, 2024 9:59am COPD (chronic obstructive pulmonary disease) chronic December 23, 025 9:59am Smoking greater than 30 pack years chronic December 23, 2024 9:59am [facility] Work Phone: 1(122) 347-198603-09-2025 Evaluation note* Diagnosis Onset Date Resolution Status [...] 9:59am Anxiety and depression chronic [facility] 2024 9:59am Asthma chronic December 23 9:59am [...] years chronic February 08, 2025 1 :07pm [facility] Work Phone: [phone]) 546-8816709890-21-2799 Evaluation note* Diagnosis Onset Date Resolution Status [...] 9:59am Anxiety and depression chronic [facility] 2024 9:59am Asthma chronic December 23 9:59am [...] pack years chronic March 13, 2025 11:28pm [facility] Work Phone: [phone]) [phone] Evaluation note* Diagnosis Onset Date Resolution Status [...] 9:59am Anxiety and depression chronic [facility] 2024 9:59am Asthma chronic December 23 9:59am [...] pack years chronic March 13, 2025 11:28pm [facility] Work Phone: 1(940) 580-801203-09-2025 Radiology Diagnostic study note [facility] Imaging Services [address] [place] [address] CTA Chest W/WO Contrast MR#: [id number] Acct: [id number] Name: GRACIE BANUELOS Rep #: [id number] : 1965 F 59 From: Jay Juarez DO PCP: Dr. Misbah Elkins MD Status: ADM I N Study:CTA Chest W/WO Contrast Date of Exam: 12/04/24 Exam# [id number] Ordering Dr: Kaitlin Aguayo DO PROCEDURE: CTA [...] Elkins MD; Dr. Aleta Aguayo DO ~ Photo Optics Technician: Signed [facility]03-09-2025 Discharge summary [facility] Medical Records Department [address] [place] [address] Emergency Department Summary 12/04/24 MR#: [id number] Acct: [id number] Name: GRACIE BANUELOS Rep #:[id number] : 1965 59 From: Franco Inman MD PCP: Dr. Misbah Elkins MD Status:ADM I N Location: [place] [address] HPI History of Present Illness Chief Complaint: [...] had a pancreatic block done at the [facility] was discharged the same day. Sheis [...] Allergy Other Verified 12/04/24 15:55 hydrocodone (From [place]) AdvReac Itching Verified 12/04/24 15:55 Family History [...] Back nontender. Moving all 4 extremities. Normal lead bi developer strength. Normal dorsi plantarflexion. Calves are nontender [...] 80.5 H Lymph % (Auto) 6.8 L Hernando % (Auto) 10.4 H Eos % (Auto) [...] rate of 121. No acute signs of SD or ischemia. No dysrhythmia. Discharge Plan Dx/Rx/DC Orders Clinical Impression: Viral URI, COPD exacerbation, Hypoxia, Chronic pancreatitis Disposition Disposition: Acute Care Hospital [facility] What to do if you have Problems For any increased pain, shortness of breath, bleeding, nausea or vomiting, chestpain, or any unexpected problems, contact your Primary Care Provider. Call [facility] ([phone]) or report tothe closest Emergency Room. Call 911 if necessary. 12/04/24 1846 Cosigner Signature (if applicable): CC: Dr. Misbah Elkins MD ~ Signed [facility]03-09-2025 Radiology Diagnostic study note [facility] Imaging Services [address] [place] [id number] Chest PA and Lateral MR#: [id number] Acct: [id number] Name: GRACIE BANUELOS Rep #: [id number] : 1965 F 59 From: Jay Juarez DO PCP: Dr. Misbah Elkins MD Status: REG E R Study:Chest PA and Lateral Date of Exam: 12/04/24 Exam# [id number] Ordering Dr: Ema Inman MD PROCEDURE: CHEST [...] Elkins MD; Dr. Franco Inman MD ~ Photo Optics Technician: Signed [facility]03-09-2025 Discharge summary Author Franco Inman [facility] Note Date/Time December 04, 2024 6:46 pm [facility] Medical Records Department [address] [place] [address] Emergency Department Summary 12/04/24 MR#: [id number] Acct: [id number] Name: GRACIE BANUELOS Rep #:[id number] : 1965 59 From: Franco Inman MD PCP: Dr. Misbah Elkins MD Status:ADM I N Location: [place] [address] HPI History of Present Illness Chief Complaint: [...] had a pancreatic block done at the [facility] was discharged the same day. She [...] Allergy Other Verified 12/04/24 15:55 hydrocodone (From [place]) AdvReac Itching Verified 12/04/24 15:55 Family History [...] Back nontender. Moving all 4 extremities. Normal lead bi developer strength. Normal dorsi plantarflexion. Calves are nontender [...] 80.5 H Lymph % (Auto) 6.8 L Hernando % (Auto) 10.4 H Eos % (Auto) [...] No acute airspace abnormality. Emphysema. [facility], AP and [...] rate of 121. No acute signs of SD or ischemia. No dysrhythmia. Discharge Plan Dx/Rx/DC Orders Clinical Impression: Viral URI, COPD exacerbation, Hypoxia, Chronic pancreatitis Disposition Disposition: Acute Care Hospital [facility] What to do if you have Problems For any increased pain, shortness of breath, bleeding, nausea or vomiting, chestpain, or any unexpected problems, contact your Primary Care Provider. Call [facility] ([phone]) or report to the closest Emergency Room. Call 911 if necessary. 12/04/24 1846 <Electronically signed by Franco Inman MD> Cosigner Signature (if applicable): CC: Dr. Misbah Elkins MD ~ Signed [facility] Work Phone: 1([phone]) 322-385603-06-2025 Telephone encounter Note* Telephone Encounter - Jane Farrell MD - 12/01/2024 11:58 AM EST Orders [facility]03-06-2025 Miscellaneous Notes* Telephone Encounter - Jane Farrell MD - 12/01/2024 11:58 AM EST Orders documented in [facility] Nurse Note* Reshma Telles RN - [...] Discharge Instructions REFERRAL (RECOMMENDATION): None [facility]03-06-2025 Nurse Note* Reshma Telles RN - [...] Department: GASTROENTEROLOGY documented in [facility] NoteQ3 Patient Name: Gracie Banuelos Procedure Date: 12/01/2024 9:53 AM Date of : 1965 Admit Type: Outpatient Age: 59 Gender: Female Note Status: Finalized Attending MD: Jane Farrell MD, [id number] Procedure: Upper EUS Indications: Celiac plexus block [...] present medications. Procedure Code(s): --- Professional --- 40858, Esophagogastroduodenoscopy, flexible, transoral; with endoscopic ultrasound examination limited to the esophagus, stomach or duodenum, and adjacent structures Diagnosis Code(s): --- Professional --- K86.9, Disease of pancreas, unspecified K86.1, Other chronic pancreatitis R93.3, Abnormal findings on diagnostic imaging of other parts of digestive tract CPT copyright 2020 [employer]. All rights reserved. Attending Participation: I personally performed the entire procedure. Scope In: 10:14:38 AM Scope Out: 10:28:19 AM MD Jane Fields MD 12/01/2024 10:35:18 AM This report has been signed electronically by Jane Farrell MD Number of Addenda: 0 Note Initiated On: 12/01/2024 9:53 [id number] Patient Name: Gracie Banuelos Procedure Date: 12/01/2024 9:53 AM Date of : 1965 Admit Type: Outpatient Age: 59 Gender: Female Note Status: Finalized Attending MD: Jane Farrell MD, [id number] Procedure: Upper EUS Indications: Celiac plexus block [...] present medications. Procedure Code(s): --- Professional --- 25928, Esophagogastroduodenoscopy, flexible, transoral; with endoscopic ultrasound examination limited to the esophagus, stomach or duodenum, and adjacent structures Diagnosis Code(s): --- Professional --- K86.9, Disease of pancreas, unspecified K86.1, Other chronic pancreatitis R93.3, Abnormal findings on diagnostic imaging of other parts of digestive tract CPT copyright 2020 [employer]. All rights reserved. Attending Participation: I personally performed the entire procedure. Scope In: 10:14:38 AM Scope Out: 10:28:19 AM MD Jane Fields MD 12/01/2024 10:35:18 AM This report has been signed electronically by Jane Farrell MD Number of Addenda: 0 Note Initiated On: 12/01/2024 9:53 [facility]03-06-2025 Nurse Note* Kathie Dorantes RN - [...] Dorantes RN In Department: GASTROENTEROLOGY [facility]03-04-2025 NotePatient Outreach (INTMMN) GRACIE BANUELOS ([id number]) 1965 F Date Time Provider Department 11/29/24 [...] [E78.5] Order(s):LIPID PANEL BASIC [SQLIPB] Order #: [id number] FUTURE Prescriptions as of 12/02/2024 - pantoprazole [...] by mouth at bedtime as needed. - aiojjz-gdkllczt-tkatgkx (CREON 24) 24,000-76,000 -120,000 unit delayed release [...] stress female [N39.3] 11/24/2014 HPV test positive [BKA2542] 11/24/2014 Alcohol dependence in remission (HCC) [F10.21] [...] 01/10/2021 Encounter Status:Closed by JESUS PEMBERTONUSER on 12/02/24[facility] 11-25-2024 Telephone encounter Note* Telephone Encounter - Juan Bloom LPN - 11/25/2024 3:57 PM EST Spoke with Gracie, discussed that [facility] staff will be talking to patient in preoperative area and will give any medications IV to help with anxiety, patient understands and has no other questions. Juan Bloom LPN [facility] Work Phone: 1(442) 690-721002-28-2025 Miscellaneous Notes* Telephone Encounter - Juan Bloom [...] you do prescribe or if you won't [phone] (does not use MyChart) Lyric Yeung documented in this encounterMer[facility]-28-2025 Telephone encounter Note * Telephone Encounter [...] you do prescribe or if you won't [phone] (does not use MyChart) Lyric Yeung [facility]02-28-2025 Telephone encounter Note* Telephone Encounter - Raisa Jimenez RN - 11/25/2024 12:00 PM EST Spoke with pt and went over prep instructions, answering all her questions until pt was comfortableand verbalized understanding Raisa Jimenez MA [facility]02-28-2025 Miscellaneous Notes* Telephone Encounter - Raisa Jimenez RN - 11/25/2024 12:00 PM EST Spoke with pt and went over prep instructions, answering all her questions until pt was comfortableand verbalized understanding Raisa Jimenez MA documented in this encounterMer[facility]02-27-2025 Nurse Note* Carroll Leblanc RN - 11/24/2024 4:09 PM EST Attempted to reach the patient at the contact number that they provided [phone] (home) . Unable to speak with patient so without identifying the patient the following information was left on their voice mail: Date of procedure, location and report time Prep instructions A message was left informing the patient/patient personal banking representative they must have a responsible adult [...] Number to call with questions or concerns [phone] Number to call to cancel their procedure [phone] Carroll Leblanc RN [facility]02-27-2025 Nurse Note* Carroll Leblanc RN - 11/24/2024 4:09 PM EST Attempted to reach the patient at the contact number that they provided [phone] (home) . Unable to speak with patient so without identifying the patient the following information was left on their voice mail: Date of procedure, location and report time Prep instructions A message was left informing the patient/patient personal banking representative they must have a responsible adult [...] Number to call with questions or concerns [phone] Number to call to cancel their procedure [phone] Carroll Leblanc RN documented in this encounterMer[facility]02-[facility]-2025 Telephone encounter Note * Telephone Encounter [...] November 21, 2024 2:[address] [facility]02-24-2025 Miscellaneous Notes* Telephone Encounter - Mike [...] 2:14 PM documented in this encounterMer[facility]02-12-2025 Telephone encounter Note * Telephone Encounter - Candie Murdock MA - 11/09/2024 11:38 AM EST Patient notified and verbalized understanding. Candie Murdock MA [facility]02-12-2025 Miscellaneous Notes* Telephone Encounter - Candie [...] anxiety. Please review and advise pt back. Mariebth Owen LPN documented in this encounterMer[facility]02-12-2025 Telephone encounter Note * Telephone Encounter - Misbah Elkins MD - 11/09/2024 10:22 AM EST The medication Is for anxiety, and was the medication she requested. So please ask her to use it. RegardsMisbah MD [facility]02-12-2025 Telephone encounter Note* Telephone Encounter - Marisela Rico LPN - 11/09/2024 8:17 AM EST Called and updated patient, voiced understanding. Marisela Rico LPN November 09, 2024 8:[address] [facility]02-12-2025 Miscellaneous Notes* Telephone Encounter - Marisela [...] Cisneros MD documented in this encounterMer[facility]02-12-2025 Telephone encounter Note * Telephone Encounter - Marisela Rico LPN - 11/09/2024 8:10 AM EST ----- Message from Misbah Elkins MD sent at 11/08/2024 5:00 PM EST ----- Chest xr is normal . Regards, Misbah Elkins MD [facility] [place]02-11-2025 Telephone encounter Note* Telephone Encounter - Maribeth [...] and advise pt back. Maribeth Owen LPN [facility] [place]02-10-2025 History of Present illness Narrative* Roland Camargo [...] PATIENT PRESENTS WITH AN IMPLANTABLE OR ATTACHED WATER RESOURCE ENGINEER: No RADIOLOGY DEPARTMENT: General X-ray: Exam(s) Completed: Chest X-Ray PERIPHERAL IV DATA: Not applicable SIGNED BY: RT Oneyda(R) November 07, 2024 3:11 PM documented in this encounterMercy Health St. [facility]02-10-2025 NoteHNO ID: [id number] Author: ROLAND CAMARGO RT(R) Service: Radiology Author [...] PATIENT PRESENTS WITH AN IMPLANTABLE OR ATTACHED WATER RESOURCE ENGINEER: No RADIOLOGY DEPARTMENT: General X-ray: Exam(s) Completed: Chest X-Ray PERIPHERAL IV DATA: Not applicable SIGNED BY: RT Oneyda(Heath) November 07, 2024 3:11 [facility]02-10-2025 NoteHNO ID: [id number] Author: MISBAH ELKINS MD Service: ? Author [...] anxiety and depression. She was admitted to [facility] from 01/01 to 01/04 for pneumonia and [...] times and is only getting Remeron from [facility]. She says she has panic [...] Take 1 tablet by mouth once daily. asgizh-oznjqjdm-jopnghl (CREON 24) 24,000-76,000 -120,000 unit delayed release capsule Take 3 capsules by mouth once daily. (Patient not taking: Reported on 11/02/2024) metoprolol tartrate, short acting (more content not included)...[facility]02-10-2025 History of Present illness Narrative* Misbah Elkins MD - 11/07/2024 2:01 PM EST BESSIE Bowman is a 59-year-old woman with a past medical history of hypertension, hyperlipidemia, alcohol use disorder with moderate dependence currently only using alcohol twice a month, alcohol hepatitis and pancreatitis, tobacco abuse disorder, pulmonary emphysema, lumbar disc disease with radiculopathy, anxiety and depression. She was admitted to [facility] from 01/01 to 01/04 for pneumonia and [...] Take 1 tablet by mouth once daily. qqcmci-pyykmkrk-uostblb (CREON 24) 24,000-76,000 -120,000 unit delayed release [...] Elkins MD documented in this encounterMercy Health St. [facility]02-05-2025 Instructions* Patient Instructions* Juan Senior APRN.CNP - 11/02/2024 2:41 PM EST Schedule pain block Schedule appointment with pain management Small frequent meals, lean protein (chicken, fish, pork or turkey are preferred), low fat and high antioxidants [email or web address] for diet tips Follow up in 3-6 months documented in [address] encounterMer[facility]. [facility]02-05-2025 History of Present illness Narrative* Juan [...] muscles on the left is partially imaged. [facility] 08/15/2024 [facility] Gracie Banuelos is a 59 year [...] shortness of breath all improving. Goes to [facility] with next routine exam in September. [...] nausea. Denies anyvomiting or bowel changes. [facility] 05/27/2022 HPI Gracie Banuelos is a [...] 12:34 PM documented in this encounterMercy Health St. [facility]02-05-2025 NoteHNO ID: [id number] Author: JUAN SENIOR APRN.CNP Service: ? Author [...] muscles on the left is partially imaged. [facility] 08/15/2024 BESSIE Gracie Banuleos is a 59 year old female who [...] shortness of breath all improving. Goes to [facility] with next routine exam in September. [...] Denies any vomiting or bowel changes. [facility] 05/27/2022 HPI Gracie Banuelos is a [...] Oct 2019 SYMPTOMS History (more content not included)...[facility]01-31-2025 Telephone encounter Note* Telephone Encounter - Mihaela [...] by mouth once daily. Mihaela Cheng RN [facility]01-31-2025 Miscellaneous Notes* Telephone Encounter - Mihaela [...] Cheng RN documented in this encounterMercy Health St. [facility]11-26-2024 History of Present illness Narrative* Reef [...] PATIENT PRESENTS WITH AN IMPLANTABLE OR ATTACHED WATER RESOURCE ENGINEER: No ALLERGIES: Reviewed and unchanged CONTRAST ALLERGY: [...] 10:05 AM documented in this encounterMercy Health St. [facility]11-26-2024 NoteHNO ID: [id number] Author: NADEEN BOBBY RT (R) Service: ? Author Type: Call Center Supervisor Type: Progress Notes Filed: 08/23/2024 10:05 Note [...] PATIENT PRESENTS WITH AN IMPLANTABLE OR ATTACHED WATER RESOURCE ENGINEER: No ALLERGIES: Reviewed and unchanged CONTRAST ALLERGY: [...] Banuelos DATE: August 23, 2024 TIME: 10:05 [facility]11-22-2024 Telephone encounter Note* Telephone Encounter - Maribeth Owen LPN - 08/19/2024 11:35 AM EST Pt called in to reports she is still getting the Lexapro in her packs. I called [facility] and they will pick her packs up today and remove the Lexapro and then deliver back to pt today. Pt notified. Maribeth Owen LPN [facility]11-22-2024 Miscellaneous Notes* Telephone Encounter - Maribeth Owen LPN - 08/19/2024 11:35 AM EST Pt called in to reports she is still getting the Lexapro in her packs. I called [facility] and they will pick her packs up today and remove the Lexapro and then deliver back to pt today. Pt notified. Maribeth Owen LPN documented in this encounterMercy Health St. [facility]11-20-2024 Telephone encounter Note * Telephone Encounter - Soila Easton APRN.CNP - 08/17/2024 7:19 AM EST PDMP website checked and validated. All prescriptions have been APPROPRIATELY filled. No suspiciousactivity was identified. 08/17/2024 by Soila Easton APRN.IGOR [facility]11-20-2024 Miscellaneous Notes* Telephone Encounter - Soila [...] 9:30 AM documented in this encounterMercy Health St. Anne [facility]11-19-2024 Telephone encounter Note * Telephone Encounter [...] August 16, 2024 9:[address] [facility]11-18-2024 NoteHNO ID: [id number] Author: SOILA EASTON APRN.PROPERTY DISPOSAL OFFICER Service: ? Author Type: Nurse Practitioner Type: [...] shortness of breath all improving. Goes to [facility] with next routine exam in September. [...] disease (HCC) Alcohol dependence in remission ([facility]) 07/10/2015 Alcohol use disorder 08/27/2017 Alcohol-induced pancreatitis Alcoholic hepatitis 05/18/2012 Alcoholic liver disease (HCC) 11/16/2013 Anemia Anxiety with depression Asthma Chronic hypoxemic respiratory failure (HCC) COPD (chronic obstructive pulmonary disease) ([facility]) 05/25/2012 DDD (degenerative disc disease), cervical 09/03/2018 [...] 3 severe COPD by GOLD classification ([facility]) 2018 Tobacco use greater than 30 years [...] Take 1 tablet by mouth once daily. cqgwni-hxcdqovp-qedysyr (CREON 24) 24,000-76,000 -120,000 unit delayed release [...] 200 mg capsule Take (more content not included)...[facility]11-18-2024 History of Present illness Narrative* Soila Easton APRN.PROPERTY DISPOSAL OFFICER - 08/15/2024 11:36 AM EST CC: Patient [...] shortness of breath all improving. Goes to [facility] with next routine exam in September. [...] disease (HCC) Alcohol dependence in remission ([facility]) 07/10/2015 Alcohol use disorder 08/27/2017 Alcohol-induced pancreatitis Alcoholic hepatitis 05/18/2012 Alcoholic liver disease ([facility]) 11/16/2013 Anemia Anxiety with depression Asthma Chronic hypoxemic respiratory failure ([facility]) COPD (chronic obstructive pulmonary disease) ([facility]) 05/25/2012 DDD (degenerative disc disease), cervical 09/03/2018 [...] 3 severe COPD by GOLD classification ([facility]) 2018 Tobacco use greater than 30 years Unspecified hemorrhoids without mention of complication Urine, incontinence, stress female 11/24/2014 PAST SURGICAL HISTORY Procedure Laterality Date APPENDECTOMY at age 14 COLONOSCOPY 04/15/[address], [address] Paul Perez. COLONOSCOPY 01/23/2015 2-Tubular adenomas. Dr. Víctor oLpez. COLONOSCOPY 07/29/2017 normal COLONOSCOPY - DIAGNOSTIC 01/10/2021 10 yr interval EGD 10/03/[address] Pual Perez. EGD 07/29/2017 mild gastritis, otherwise normal [...] Take 1 tablet by mouth once daily. rzmbak-vuvrgnnc-rjvxjoq (CREON 24) 24,000-76,000 -120,000 unit delayed release [...] Easton APRN.IGOR documented in this encounterMercy Health St. [facility]11-14-2024 Telephone encounter Note * Telephone Encounter - Eva Martines RN - 08/11/2024 3:26 PM EST Patient notified of results and provider's instructions. Patient verbalizes understanding. Eva Martines RN [facility]11-14-2024 Miscellaneous Notes* Telephone Encounter - Eva [...] PM EST ----- Message from Soila Easton APRN.PROPERTY DISPOSAL OFFICER sent at 08/11/2024 3:16 PM EST ----- No pneumonia on chest xray. Continue current treatment and upcoming follow up appointment. Thank you Soila Easton APRN.PROPERTY DISPOSAL OFFICER documented in this encounterMercy Health St. [facility]11-14-2024 Telephone encounter Note * Telephone Encounter - Maribeth Owen LPN - 08/11/2024 3:21 PM EST .Left a message for pt to call the office and ask to speak to a nurse. Maribeth Owen LPN [facility]11-14-2024 Telephone encounter Note* Telephone Encounter - Maribeth Owen LPN - 08/11/2024 3:21 PM EST ----- Message from Soila Easton APRN.PROPERTY DISPOSAL OFFICER sent at 08/11/2024 3:16 PM EST ----- No pneumonia on chest xray. Continue current treatment and upcoming follow up appointment. Thank you Soila Easton APRN.PROPERTY DISPOSAL OFFICER [facility]11-13-2024 History of Present illness Narrative* Contreras [...] PATIENT PRESENTS WITH AN IMPLANTABLE OR ATTACHED WATER RESOURCE ENGINEER: No RADIOLOGY DEPARTMENT: General X-ray: Exam(s) Completed: Chest X-Ray PERIPHERAL IV DATA: Not applicable SIGNED BY: ASTRID Muniz) August 10, 2024 5:40 PM documented in this encounterMercy Health St. [facility]11-13-2024 NoteHNO ID: [id number] Author: CONTRERAS MACK RT(R) Service: ? Author Type: Call Center Supervisor Type: Progress Notes Filed: 08/10/2024 17:47 Note [...] PATIENT PRESENTS WITH AN IMPLANTABLE OR ATTACHED WATER RESOURCE ENGINEER: No RADIOLOGY DEPARTMENT: General X-ray: Exam(s) Completed: Chest X-Ray PERIPHERAL IV DATA: Not applicable SIGNED BY: RT Cristy(Heath) August 10, 2024 5:40 [facility]11-13-2024 NoteHNO ID: [id number] Author: SOILA EASTON APRN.PROPERTY DISPOSAL OFFICER Service: ? Author Type: Nurse Practitioner Type: [...] disease (HCC) Alcohol dependence in remission ([facility]) 07/10/2015 Alcohol use disorder 08/27/2017 Alcohol-induced pancreatitis [...] 3 severe COPD by GOLD classification ([facility]) 2018 Tobacco use greater than 30 years [...] Take 1 tablet by mouth once daily. nncmaa-rqzmcvzw-qdplovk (CREON 24) 24,000-76,000 -120,000 unit delayed release [...] daily with meals. luciano (more content not included)...[facility]11-13-2024 History of Present illness Narrative* Soila Easton APRN.PROPERTY DISPOSAL OFFICER - 08/10/2024 5:05 PM EST CC: Patient [...] 3 severe COPD by GOLD classification ([facility]) 2018 Tobacco use greater than 30 years [...] Take 1 tablet by mouth once daily. rxrqng-wtwosdzc-elxxztp (CREON 24) 24,000-76,000 -120,000 unit delayed release [...] Easton APRN.CNP documented in this encounterMercy Health St. [facility]11-13-2024 Telephone encounter Note * Telephone Encounter [...] to test for a UTI. [facility]11-13-2024 Miscellaneous Notes* Telephone Encounter - Caroline [...] specialist. Pt booked for an appt with Solia Easton today at 5 pm. Explained that [...] Elkins MD documented in this encounterMercy Health St. [facility]11-13-2024 Telephone encounter Note * Telephone Encounter - Caroline Miller RN - 08/10/2024 1:14 PM EST ----- Message from Misbah Elkins MD sent at 08/10/2024 12:44 PM EST ----- Gracie your while count always tends to be high, We will evaluate that in the next visit. Regards, Misbah Elkins MD [facility]11-08-2024 Instructions* Patient Instructions* Misbah Elkins MD [...] at [email or web address]. documented in this encounterMercy Health St. [facility]11-08-2024 History of Present illness Narrative* Misbah Elkins MD - 08/05/2024 3:40 PM EST BESSIE Bowman is a 59-year-old woman with a past medical history of hypertension, hyperlipidemia, alcohol use disorder with moderate dependence currently only using alcohol twice a month, alcohol hepatitis and pancreatitis, tobacco abuse disorder, pulmonary emphysema, lumbar disc disease with radiculopathy, anxiety and depression. She was admitted to [facility] from 01/01 to 01/04 for pneumonia and [...] 3 severe COPD by GOLD classification ([facility]) 2018 Tobacco use greater than 30 years [...] Take 1 tablet by mouth once daily. utqxff-kdqywgrl-jyvujbp (CREON 24) 24,000-76,000 -120,000 unit delayed release [...] Elkins MD documented in this encounterMercy Health St. [facility]11-08-2024 NoteHNO ID: [id number] Author: MISBAH ELKINS MD Service: ? Author [...] anxiety and depression. She was admitted to [facility] from 01/01 to 01/04 for pneumonia and [...] times and is only getting Remeron from [facility]. She says she has panic [...] 3 severe COPD by GOLD classification ([facility]) 2018 Tobacco use greater than 30 years [...] EGD EUS 12/05/2019 mil (more content not included)...[facility]10-11-2024 Telephone encounter Note* Telephone Encounter - Soila Easton APRN.CNP - 07/08/2024 2:43 PM EDT PDMP website checked and validated. All prescriptions have been APPROPRIATELY filled. No suspiciousactivity was identified. 07/08/2024 by Soila Easton APRN.CNP [facility]10-11-2024 Miscellaneous Notes* Telephone Encounter - Soila [...] 1:52 PM documented in this encounterMercy Health St. [facility]10-11-2024 Telephone encounter Note * Telephone Encounter [...] July 08, 2024 1:[address] [facility]09-24-2024 Telephone encounter Note* Telephone Encounter - Candie Murdock MA - 06/21/2024 2:32 PM EDT Patient no showed to today's appt. Letter sent. Candie Murdock MA [facility]09-24-2024 Miscellaneous Notes* Telephone Encounter - Candie Murdock MA - 06/21/2024 2:32 PM EDT Patient no showed to today's appt. Letter sent. Candie Murdock MA documented in this encounterMercy Health St. [facility]09-19-2024 Telephone encounter Note * Telephone Encounter - Soila Easton APRN.CNP - 06/16/2024 12:39 PM EDT PDMP website checked and validated. All prescriptions have been APPROPRIATELY filled. No suspiciousactivity was identified. 06/16/2024 by Soila Easton APRN.CNP [facility]09-19-2024 Miscellaneous Notes* Telephone Encounter - Soila [...] 2:33 PM documented in this encounterMercy Health St. [facility]09-18-2024 Telephone encounter Note * Telephone Encounter [...] June 15, 2024 5:[address] [facility]09-18-2024 Telephone encounter Note* Telephone Encounter - [...] June 15, 2024 2:[address] [facility]08-21-2024 History of Present illness Narrative* Misbah Elkins MD - 05/18/2024 4:37 PM EDT BESSIE Bowman is a 59-year-old woman with a past medical history of hypertension, hyperlipidemia, alcohol use disorder with moderate dependence currently only using alcohol twice a month, alcohol hepatitis and pancreatitis, tobacco abuse disorder, pulmonary emphysema, lumbar disc disease with radiculopathy, anxiety and depression. She was admitted to [facility] from 01/01 to 01/04 for pneumonia and [...] tablet by mouth two times a day. cdeaqd-qjnmumcm-ewuhwlj (CREON 24) 24,000-76,000 -120,000 unit delayed release [...] 577.1, ICD10: K86.0 Refilled her Creon - EWPUNJ-INTIXQQY-SVZAZCT 24,000-76,000-120,000 UNIT CAPSULE,DELAYED REL 3. Chronic obstructive [...] Elkins MD documented in this encounterMercy Health St. [facility]08-19-2024 Telephone encounter Note * Telephone Encounter - Maribeth Owen LPN - 05/16/2024 7:28 PM EDT Spoke with pt and apt booked for tomorrow. Pt not out of medication. Pt will discuss medication below at apt. Maribeth Owen LPN [facility]08-19-2024 Miscellaneous Notes* Telephone Encounter - Maribeth [...] patient via phone and does not use [employer]. Patients phone has restriction on it and [...] 12:12 PM documented in this encounterMercy Health St. [facility]08-19-2024 Telephone encounter Note * Telephone Encounter - Susy Barnes LPN - 05/16/2024 6:57 PM EDT Unable to reach Patient, phone has restrictions and can not receive call. Called Domonique/Sister, asking for Patient to call & speak to nurse. Susy Barnes LPN [facility]08-16-2024 Telephone encounter Note* Telephone Encounter - Marisela Rico LPN - 05/13/2024 3:58 PM EDT Unable to contact patient via phone and does not use MyChart. Patients phone has restriction on it and can not receive call. Patient has an appointment with Soila Easton on 05/23/24 if unable to contact patient sooner. Marisela Rico LPN May 13, 2024 3:[address] [facility]08-16-2024 Telephone encounter Note* Telephone Encounter - Misbah Elkins MD - 05/13/2024 12:34 PM EDT Please set gracie to see me on Thursday to discuss this refill Blayne, Misbah Elkins MD [facility]08-16-2024 Telephone encounter Note* Telephone Encounter - [...] May 13, 2024 12:[address] [facility]07-19-2024 Telephone encounter Note* Telephone Encounter - Soila Easton APRN.CNP - 04/15/2024 2:36 PM EDT PDMP website checked and validated. All prescriptions have been APPROPRIATELY filled. No suspiciousactivity was identified. 04/15/2024 by Soila Easton APRN.CNP [facility]07-19-2024 Miscellaneous Notes* Telephone Encounter - Soila [...] 1:32 PM documented in this encounterMercy Health St. [facility]07-19-2024 Telephone encounter Note * Telephone Encounter [...] April 15, 2024 1:[address] [facility]06-21-2024 Telephone encounter Note* Telephone Encounter - Annette Hayes APRN.CNP - 03/18/2024 3:09 PM EDT PDMP website checked and validated. All prescriptions have been APPROPRIATELY filled. No suspiciousactivity was identified. 03/18/2024 by Annette Hayes APRN.CNP [facility]06-21-2024 Miscellaneous Notes* Telephone Encounter - Annette [...] 2:51 PM documented in this encounterMercy Health St. [facility]06-21-2024 Telephone encounter Note * Telephone Encounter [...] Med Jensen March 18, 2024 2:[address] [facility]06-17-2024 Telephone encounter Note* Telephone Encounter - Eda Shine LPN - 03/14/2024 2:02 PM EDT Phoned patient and left message that she should have enough medication to get her to her appointment next week with Soila Easton on 03/18/24. Eda Shine LPN [facility]06-17-2024 Miscellaneous Notes* Telephone Encounter - Eda [...] 11:25 AM documented in this encounterMercy Health St. [facility]06-17-2024 Telephone encounter Note * Telephone Encounter - Julissa Burgos MD - 03/14/2024 12:53 PM EDT Last RX 02/25 for 28 day supply so should have enough to last till 03/25 Has 03/18 appointment with Soila, so should be able to get refills next week [facility] Work Phone: [phone] Telephone encounter Note* Telephone Encounter - Catherine Pennington LPN - 03/14/2024 11:24 AM EDT [facility] calls for a refill for pt. [...] March 14, 2024 11:[address] [facility]05-31-2024 Telephone encounter Note* Telephone Encounter - Annette Hayes APRN.CNP - 02/26/2024 3:25 PM EDT PDMP website checked and validated. All prescriptions have been APPROPRIATELY filled. No suspiciousactivity was identified. 02/26/2024 by Annette Hayes APRN.IGOR [facility]05-31-2024 Miscellaneous Notes* Telephone Encounter - Annette Hayes APRN.CNP - 02/26/2024 3:25 PM EDT PDMP website checked and validated. All prescriptions have been APPROPRIATELY filled. No suspiciousactivity was identified. 02/26/2024 by Annette Hayes APRN.IGOR * Telephone Encounter - Kiara Miramontes LPN - 02/26/2024 2:31 PM EDT Patient is now using [facility]. [facility] is unable to transfer this from [email or web address] since it is a controlled medication. Patient [...] Miramontes LPN. documented in this encounterMercy Health St. [facility]05-31-2024 Telephone encounter Note * Telephone Encounter - Kiara Miramontes LPN - 02/26/2024 2:31 PM EDT Patient is now using [facility]. [facility] is unable to transfer this from [email or web address] since it is a controlled medication. Patient [...] Thank you. Kiara Miramontes LPN. [facility]05-24-2024 Telephone encounter Note* Telephone Encounter - Soila Easton APRN.CNP - 02/19/2024 2:30 PM EDT PDMP website checked and validated. All prescriptions have been APPROPRIATELY filled. No suspiciousactivity was identified. 02/19/2024 by Soila Easton APRN.CNP [facility]05-24-2024 Miscellaneous Notes* Telephone Encounter - Soila Easton APRN.CNP - 02/19/2024 2:30 PM EDT PDMP website checked and validated. All prescriptions have been APPROPRIATELY filled. No suspiciousactivity was identified. 02/19/2024 by Soila Easton APRN.PROPERTY DISPOSAL OFFICER * Telephone Encounter - Eda Shine LPN [...] Pily Dewitt. documented in this encounterMercy Health St. [facility]05-24-2024 Telephone encounter Note * Telephone Encounter [...] Thank you. Eda Shine LPN. [facility]05-24-2024 Telephone encounter Note* Telephone Encounter - [...] advise. Thank you. Pily Dewitt. [facility]05-09-2024 Miscellaneous Notes* Telephone Encounter - Soila Easton APRN.CNP - 02/04/2024 12:37 PM EDT Noted Soila Easton APRN.CNP * Telephone Encounter - Mihaela Cheng RN - 02/04/2024 9:19 AM EDT FYI: Patient calling in to update PCP that she was seen by Dr. Owen Del Rosario at [facility] recently and diagnosed with gout in her right foot. She has been prescribed medication/treatment and will be following up with them next week. Patient states if PCP team needs any of these records, to contact DR. Del Rosario's office for them. Patient will be seeing Soila Easton CNP in February. Mihaela Cheng RN documented in this encounterMercy Health [facility]. [facility]05-09-2024 Telephone encounter Note * Telephone Encounter - Soila Easton APRN.CNP - 02/04/2024 12:37 PM EDT Noted Soila Easton APRN.CNP [facility]05-09-2024 Telephone encounter Note* Telephone Encounter - Mihaela Cheng RN - 02/04/2024 9:19 AM EDT FYI: Patient calling in to update PCP that she was seen by Dr. Owen Del Rosario at [facility] recently and diagnosed with gout in her right foot. She has been prescribed medication/treatment and will be following up with them next week. Patient states if PCP team needs any of these records, to contact DR. Del Rosario's office for them. Patient will be seeing Soila Easton CNP in February. Mihaela Cheng RN [facility]05-01-2024 Telephone encounter Note* Telephone Encounter - María Elena Sheth RN - 01/27/2024 6:04 PM EDT Spoke with patient. Given message from provider's office. Patient verbalizes understanding. María Elena Sheth RN [facility]05-01-2024 Miscellaneous Notes* Telephone Encounter - María [...] you, Tara Youngblood APRN.IGOR documented in this encounterMercy Health St. [facility]05-01-2024 Telephone encounter Note * Telephone Encounter - Tara Youngblood APRN.CNP - 01/27/2024 5:19 PM EDT Only if symptoms do not resolve. Thank you, Tara Youngblood APRN.PROPERTY DISPOSAL OFFICER [facility]05-01-2024 Telephone encounter Note* Telephone Encounter - Pam Jones LPN - 01/27/2024 5:13 PM EDT T/C to pt gave information provided. Pt voices understanding. She asks when done with atb . Should she come back to make sure its resolved? Placed records in your basket of pulmonary visit. [facility]05-01-2024 Telephone encounter Note* Telephone Encounter - [...] weget these records. Thank you, Tara Youngblood APRN.PROPERTY DISPOSAL OFFICER [facility]04-29-2024 History of Present illness Narrative* Sonja [...] PATIENT PRESENTS WITH AN IMPLANTABLE OR ATTACHED WATER RESOURCE ENGINEER: No RADIOLOGY DEPARTMENT: General X-ray: Exam(s) Completed: Chest X-Ray PERIPHERAL IV DATA: Not applicable SIGNED BY: RT Channing(R) January 25, 2024 2:07 PM documented in this encounterMer[facility] Health St. [facility]04-29-20[facility] History of Present illness Narrative* Tara Youngblood APRN.PROPERTY DISPOSAL OFFICER - 01/25/2024 1:20 PM EDT Chief Complaint Patient presents with: ER follow up HPI Gracie Banuelos is a 58 year old female who presents here today for Above Complaints. Gracie is an established patient of Dr. Satnam MD. She is a new patient to me today. [employer] computer system was down at time of this appointment. No access to chart during assessment/exam. Pt was aware of this prior to appointment and still agreed to appointment. Concerns today... ER follow-up --- [facility] ER visit on 01/18 d/t R foot [...] not cleared up from prior admission at [facility] from 12/31-01/04. Stillvery wheezy and SOB. Was [...] 3 severe COPD by GOLD classification ([facility]) 2018 Tobacco use greater than 30 years [...] tablet by mouth two times a day. hoxpvd-ounrmenq-vymhjbj (CREON 24) 24,000-76,000 -120,000 unit delayed release [...] look for resolution of prior pneumonia from [facility] admission 3 weeks ago. Concern d/t ongoing [...] suspiciousactivity was identified. 01/25/2024 by Tara Youngblood APRN.PROPERTY DISPOSAL OFFICER RTO as needed. Prescription instructions reviewed with patient as applicable. Potential red flag symptoms discussed with the patient. Reviewed appropriate action plan to take if red flag symptoms occur. Patient agreeable to treatment plan. Tara Castellanos APRN.PROPERTY DISPOSAL OFFICER [address] [place] [address] documented in [address]04[facility] Telephone encounter Note * Telephone Encounter - So Freeman LPN - 01/22/2024 3:16 PM EDT Patient calling back to check status of refill, aware [facility] is still seeing patients not addressed yet. [facility]04-26-2024 Miscellaneous Notes* Telephone Encounter - So Freeman LPN - 01/22/2024 3:16 PM EDT Patient calling back to check status of refill, aware [facility] is still seeing patients not addressed yet. [...] Nohelia Zacarias documented in this encounterMer[facility] Health St. [facility]04-26-2024 Telephone encounter Note * Telephone Encounter [...] Thank you. Chen Chauhan LPN. [facility]04-26-2024 Telephone encounter Note* Telephone Encounter - [...] to notify patient. Nohelia Zacarias [facility]04-24-2024 Telephone encounter Note* Telephone Encounter - Soila Easton APRN.CNP - 01/20/2024 7:03 AM EDT PDMP website checked and validated. All prescriptions have been APPROPRIATELY filled. No suspiciousactivity was identified. 01/20/2024 by Soila Easton APRN.CNP [facility]04-24-2024 Miscellaneous Notes* Telephone Encounter - Soila [...] Perkins RN. documented in this encounterMercy Health St. [facility]04-23-2024 Discharge summary Author Erik Gomez [facility] January 19, 2024 11:52pm Note Date/Time January 19, 2024 10: 42pm [facility] Medical Records Department [address] [place] [address] Emergency Department Summary 01/19/24 MR#: [id number] Acct: [id number] Name: GRACIE BANUELOS Rep #:[id number] : 1965 58 From: Erik Gomez MD [...] she is asking for 1 of those. [facility] Medical History Acute on chronic [...] QHS sleep 01/16/22 [History Last Taken 01/01/24] tfijol-fdszyhdz-gzizwpi 24,000-76,000-120,000 unit capsule,delayed rel (Creon) 2cap PO [...] Allergy Other Verified 01/19/24 22:09 hydrocodone [From [place]] AdvReac Itching Verified 01/19/24 22:09 Family History [...] the right lower extremity, and per the precision lens technician's preliminary interpretation, it is negative for [...] Discussion w/another healthcare provider: Other (vascular u/s precision lens technician) Discharge Plan Triage Chief Complaint: Edema [...] 14 0RF Primary Care Provider: Anat Gutiérrez [facility] Referrals: Alden Monroy, DPM [Med Staff - Active Staff] - 1 Week if not improving Anat Gutiérrez [facility], [facility] [Primary Care Provider] - Disposition Disposition: Home, Self Care What to do if you have Problems For any increased pain, shortness of breath, bleeding, nausea or vomiting, chestpain, or any unexpected problems, contact your Primary Care Provider. Call [facility] ([phone]) or report to the closest Emergency Room. Call 911 if necessary. 01/19/242351 <Electronically signed by Erik Gomez MD> Cosigner Signature (if applicable): CC: [facility]STITCHER ZIGZAGMiriam Coppola Older ~ Signed [facility] Work Phone: 1(732) 225-578304-22-2024 Telephone encounter Note* Telephone Encounter - Marge [...] Please advise. Thank you. Marge Perkins RN. [facility]04-16-2024 Miscellaneous Notes* Telephone Encounter - So Freeman LPN - 01/12/2024 4:09 PM EDT Phoned pharmacy and aware Metoprolol rx had been sent in per [facility]. * Telephone Encounter - Anat Gutiérrez APRN.CNP [...] Metoprolol rx for the patient. Asking if [facility] wanted to send rx for the patient, or if the patient gets from another provider? Please advise documented in this encounterMer[facility]04-16-2024 Instructions* Patient Instructions* Anat Gutiérrez APRN.CNP - 01/12/2024 11:36 AM EDT FOR BLOOD PRESSURE: DISCONTINUE HYDROCHLOROTHIAZIDE. DECREASE AMLODIPINE TO 5 MG DAILY. CONTINUE WITH METOPROLOL 25 MG TWICE A DAY OKAY TO RESTART HYDROXYZINE HAVE LAB WORK DONE IN ONE WEEK documented in this encounterMercy Health St. [facility]04-16-2024 History of Present illness Narrative* Anat [...] today for above. She was admitted to [facility] from 01/01 to 01/04 for pneumonia and [...] systolic blood pressure less than 100 mmHG. wrteyt-lkkqebcq-qjlfrbv (CREON 24) 24,000-76,000 -120,000 unit delayed release [...] Cognition normal. DATA REVIEWED: Outside chart from [facility] admission reviewed. ASSESSMENT/PLAN: 1. Essential hypertension, benign [...] Patient agreeable to treatment plan. Anat Gutiérrez APRN.PROPERTY DISPOSAL OFFICER documented in this encounterMercy Health St. [facility]04-10-2024 Miscellaneous Notes* Telephone Encounter - Sylvia [...] for this. documented in this encounterMercy Health St. [facility]04-10-2024 History of Present illness Narrative* Deandra Botello LPN - 01/06/2024 2:00 PM EDT TRANSITION CARE MANAGEMENT (TCM) INITIAL CONTACT Director Product Outreach Provider Action/FYI: TCM Initial contact with patient post discharge, spoke to patient. Patient identified by name and . TRANSITION CARE MANAGEMENT INITIAL OUTREACH DOCUMENTATION: 01/06/2024 Date of Outreach: Outreach Attempt 1: Contact Made Date of Discharge 01/05/2024 SUMMARY: -Pt discharged from [facility] on 01/05/24. -Admitted for: hypoxia,pneumonia,COPD exac Do you have a hospital follow up appointment with your PCP? Appointment on 01/12/24 with Anat Ghotra [facility]. Yes. Remind patient of appointment date, time, [...] instructions/AVS at all. Restate discharge instructions from [facility] verbally, copy/paste via Vusion[employer], mail, or provide in person. Do you have all the necessary equipment and supplies at home? Yes Medical records from recent hospitalization: Placed for provider to review Pt filled new medicines at [facility] but [facility] [place] is her normal pharmacy. She will call [facility] [place] to see if they can pull the new rx she got from [facility] to make sure [facility] [place] has her updated medicines. [facility] [place] pre packages pt medicines documented in this encounterMercy Health [facility]. [facility]04-09-2024 Discharge summary Author Bert Greenwood [facility] January 05, 2024 12:07pm Note Date/Time January 05, 2024 7:40 am [facility] Medical Records Department [address] [place] [address] Instructions for Home/Discharge Instructions 01/05/24 0739 MR#: [id number] Acct: [id number] Name: FERNIE BANUELOSTERRANCE Chase Rep #:[id number] : 1965 58 From: Bert Nixon PCP: Anat Older, [facility] Status:ADM IN Discharge Instructions Diet Discharge Diet: [...] MD; Dr. Anastacia Bonilla MD ~ Signed [facility] Work Phone: 1(821) 898-630904-08-2024 Progress note Author Bert Greenwood [facility] January 04, 2024 1:21pm Note Date/Time January 04, 2024 8:28 am [facility] Medical Records Department [address] [place] [address] Progress Note - Hospitalist 01/04/24827 MR#: [id number] Acct: [id number] Name: GRACIE BANUELOS Rep #:[id number] : 1965 58 From: Bert Nixon PCP: CARMEN Salazar Status:ADM IN [id number] Reason for Visit Reason for Visit: Diagnoses [...] * # Charges/Coding Visit Charges Inpatient E&M: 58114 Subs Hosp L2 01/04/24 1321 <Electronically signed by Bert Greenwood MD> Cosigner Signature (if applicable): CC: ~ Signed [facility] Work Phone: 1(819) 702-682204-07-2024 Progress note Author Anastacia Bonilla [facility] January 03, 2024 11:22am Note Date/Time January 03, 2024 9:13 am [facility] Medical Records Department [address] [place] [address] Progress Note 01/03/24 0908 MR#: [id number] Acct: [id number] Name: GRACIE BANUELOS Rep #:[id number] : 1965 58 From: Anastacia Bonilla MD PCP: Anat Easton, [facility]C Status:ADM IN Location: [place] [address] Subjective Subjective Patient seen and examined. She [...] 81.7 H, Lymph % (Auto) 9.6 L, Hernando % (Auto) 6.9, Eos % (Auto) 0.6, [...] 91.3 H, Lymph % (Auto) 4.0 L, Hernando % (Auto) 2.5, Eos % (Auto) 0.2, [...] * # Charges/Coding Visit Charges Inpatient E&M: 93619 Subs Hosp L2 01/03/24 1122 <Electronically signed by Anastacia Bonilla MD> Anastacia Bonilla MD Cosigner Signature (if applicable): CC: ~ Signed [facility] Work Phone: 1(450) 845-505604-07-2024 Discharge summary Author Víctor Huerta [facility] January 02, 2024 11:55pm Note Date/Time January 02, 2024 7:21 pm [facility] Medical Records Department [address] [place] [address] Emergency Department Summary 01/02/24 MR#: [id number] Acct: [id number] Name: GRACIE BANUELOS Rep #:[id number] : 1965 58 From: Víctor Palumbo PCP: Anat Easton, [facility]C Status:ADM IN Location: MS3 [id number] HPI History of Present Illness Chief Complaint: [...] she has had that before with pneumonia. [facility] Medical History (Updated 01/02/24 @ [...] DAILY BP 11/01/22 [History Last Taken Unknown] yttydk-sxtgkwwq-ymydljj 24,000-76,000-120,000 unit capsule,delayed rel (Creon) 1cap PO [...] Allergy Other Verified 01/02/24 18:59 hydrocodone [From [place]] AdvReac Itching Verified 01/02/24 18:59 Family History [...] 81.7 H Lymph % (Auto) 9.6 L Hernando % (Auto) 6.9 Eos % (Auto) 0.6 [...] 20:22 EDT Reading Location ID and State: Count includes the [facility] / [place] Tel , Service support , Chest CTA 01/02/24 20:13 IMPRESSION: Normal CTA chest examination, without a demonstrated pulmonary embolism or arterial dissection. Right middle and upper lobe infiltrates consistent with pneumonia. Electronically Signed: Jeff Thakkar MD at 21:39 EDT Reading Location ID and State: [facility] / [place] Tel , Service support , [...] disease), Pneumonia Disposition Disposition: Acute Care Hospital [facility] What to do if you have Problems For any increased pain, shortness of breath, bleeding, nausea or vomiting, chestpain, or any unexpected problems, contact your Primary Care Provider. Call [facility] ([phone]) or report to the closest Emergency Room. Call 911 if necessary. 01/02/24 7722 <Electronically signed by Víctor Huerta DO> Cosigner Signature (if applicable): CC: [facility]-C Anat Easton ~ Signed [facility] Work Phone: 1(786) 452-539404-07-2024 History and physical note Author Carin Meraz [facility] January 02, 2024 10:42pm Note Date/Time January 02, 2024 10:1 0pm [facility] Medical Records Department [address] [place] [address] H&P Exam - Hospitalist 01/02/242207 MR#: [id number] Acct: [id number] Name: GRACIE BANUELOS Rep #:[id number] : 1965 58 From: Carin Meraz MD PCP: CARMEN Salazar Status:ADM IN Location: [place] [address] HPI - General General Date of Admission: 01/02/24 Date of Service: 01/02/24 Chief Complaint: URI sxs, cough, dyspnea, worsening. HPI Narrative The patient is a 58 y/o F w/ PMHx: EtOH abuse, Tobacco use, COPD/Asthma w/ Chronic Hypoxic Respiratory Failure (PRN), HTN, HLD, Chronic anemia, Anxiety andDepression, Chronic pancreatitis associated with EtOH abuse who presents to the [facility] ED on 01/02/24 with history of onset [...] 1 g IV x 1. [facility] Medical History Anemia Anxiety and depression [...] DAILY BP 11/01/22 [History Last Taken Unknown] kfkmkc-odddnivg-jrwndyv 24,000-76,000-120,000 unit capsule,delayed rel (Creon) 1cap PO [...] Allergy Other Verified 01/02/24 18:59 hydrocodone [From [place]] AdvReac Itching Verified 01/02/24 18:59 Family History [...] 81.7 H, Lymph % (Auto) 9.6 L, Hernando % (Auto) 6.9, Eos % (Auto) 0.6, [...] 20:22 EDT Reading Location ID and State: Count includes the [facility] / [place] Tel , Service support [...] with EtOH abuse who presents to the [facility] ED on 01/02/24 with history of onset [...] Patient does not have healthcare power of staff attorney or living will in place but [...] Time: 16minutes. Charges/Coding Visit Charges Inpatient E&M: 53078 Init Hosp L3 Procedures Hospitalists Procedures: 26982 Advncd Care Plan 30 Min 01/02/24 2242 <Electronically signed by Carin Meraz MD> Cosigner Signature (if applicable): CC: CARMEN Coppola Older; Dr. Carin Meraz MD~ Signed [facility] Work Phone: 1(234) 937-843303-20-2024 History of Present illness Narrative* Candie Talley [...] 3 severe COPD by GOLD classification ([facility]) 2018 Tobacco use greater than 30 years [...] 1 tablet by mouth daily at bedtime. jbjrtj-hqeryard-hmrdqec (CREON 24) 24,000-76,000 -120,000 unit delayed release [...] K86.0 Refills provided per pt request - VMJFAS-LDXLCFTX-XADMCNW 24,000-76,000-120,000 UNIT CAPSULE,DELAYED REL - CBC + [...] Talley PA-C documented in this encounterMer[facility] Health St[facility]02-07-2024 Miscellaneous Notes* Telephone Encounter - Maribeth [...] - 11/03/2023 8:18 AM EST Spoke with [facility] [place] and they were trying to reach Dr. Elliott's office. Transferred rx there. Maribeth Owen LPN * Telephone Encounter - Soila Easton APRN.CNP - 11/02/2023 4:28 PM EST PCP has not prescribed lorazepam for patient. Is she getting this elsewhere? If so she needs to follow up with that provider. Thank you Soila Easton APRN.PROPERTY DISPOSAL OFFICER * Telephone Encounter - Gem Swartz - [...] Gem Swartz. documented in this encounterMercy Health St. [facility]10-13-2023 Miscellaneous Notes* Telephone Encounter - Rissa Johnson OCCA - 07/10/2023 12:11 PM EDT TC to patient who verbalized understanding of providers message below. Patient asking for medication to go to [facility] [place] instead of [place].Please advise. Thank you. BERNADETTE James * Telephone [...] up 07/20 documented [address] [facility] [address]09-15-2023 Miscellaneous Notes* Telephone Encounter - Mike [...] Phan RN documented in this encounterMercy Health St. [facility]09-13-2023 Miscellaneous Notes* Telephone Encounter - Susy [...] Tasneem Lock documented in this encounterMercy Health St. [facility]09-05-2023 Discharge summary Author Levar Handy [facility] June 02, 2023 4:56pm Note Date/Time June 02, 2023 4:56pm [facility] Medical Records Department [address] [place] [address] Emergency Department Summary 06/02/23 MR#: [id number] Acct: [id number] Name: GRACIE BANUELOS Rep #:[id number] : 1965 58 From: Levar Handy DO PCP: SOILA EASTON [facility] Status:REG ER Location: ED HPI History of [...] oxygen and everything she needs at home. [facility] Medical History Abdominal pain Alcohol [...] Q6H antibiotic 11/01/22 [History Last Taken Unknown] ldwkuy-tenoojrm-mytvpnp 24,000-76,000-120,000 unit capsule,delayed rel (Creon) 1cap PO [...] Allergy Hives Verified 11/01/22 19:37 hydrocodone [From [place]] AdvReac Itching Verified 11/01/22 19:37 Family History [...] % (Auto) 63.1 Lymph % (Auto) 25.1 Hernando % (Auto) 6.4 Eos % (Auto) 3.6 [...] your Primary Care Provider. Call [facility] ([phone]) or report to the closest Emergency Room. Call 911 if necessary. 06/02/23 1656 <Electronically signed by Levar Handy DO> Cosigner Signature (if applicable): CC: CARMEN EASTON ~ Signed [facility] Work Phone: 1(736) 783-642908-21-2023 Miscellaneous Notes* Telephone Encounter - Eva Martines RN - 05/18/2023 1:32 PM EDT Last Office Visit: 04/12/2023 Future Office Visit: None Requested Prescriptions Pending Prescriptions Disp Refills lisinopril (ZESTRIL) 10 mg tablet 30 tablet 11 Sig: Take 1 tablet by mouth once daily. documented in this encounterMercy Health St. [facility]07-19-2023 Instructions* Patient Instructions* Candie Talley PA-C - 04/15/2023 1:24 PM EDT Double check with [facility] to see if it's safe to take Cyclobenzaprine (Flexeril)at night with Geodon and Mirtazapine (Remeron) documented in this encounterMercy Health St. [facility]07-19-2023 History of Present illness Narrative* Candie [...] disease (HCC) Alcohol dependence in remission ([facility]) 07/10/2015 Alcohol use disorder 08/27/2017 Alcohol-induced pancreatitis Alcoholic hepatitis 05/18/2012 Alcoholic liver disease (HCC) 11/16/2013 Anemia Anxiety with depression Asthma Chronic hypoxemic respiratory failure (HCC) COPD (chronic obstructive pulmonary disease) ([facility]) 05/25/2012 DDD (degenerative disc disease), cervical 09/03/2018 [...] infectious organism 2017 Severe protein-calorie malnutrition ([facility]) 01/07/2019 Stage 3 severe COPD by GOLD classification ([facility]) 2018 Tobacco use greater than 30 years [...] 1 tablet by mouth daily at bedtime. bnxgiw-adblqtze-nvwxrwl (CREON 24) 24,000-76,000 -120,000 unit delayed release [...] Take 1 tablet by mouth once daily. puuoxexabde-gkplbhzno-xdklfkxm (TRELEGY ELLIPTA) 100-62.5-25 mcg inhalation powder DAILY [...] Talley PA-C documented in this encounterMercy Health St. [facility]06-27-2023 Miscellaneous Notes* Telephone Encounter - Maribeht Owen LPN - 03/24/2023 8:14 AM EDT [...] Owen LPN documented in this encounterMercy Health St. [facility]04-05-2023 Miscellaneous Notes* Telephone Encounter - Soila [...] Thao LPN documented in this encounterMercy Health St. [facility]03-03-2023 History of Present illness Narrative* Soila [...] disease (HCC) Alcohol dependence in remission ([facility]) 07/10/2015 Alcohol use disorder 08/27/2017 Alcohol-induced pancreatitis Alcoholic hepatitis 05/18/2012 Alcoholic liver disease ([facility]) 11/16/2013 Anemia Anxiety with depression Asthma Chronic hypoxemic respiratory failure ([facility]) COPD (chronic obstructive pulmonary disease) ([facility]) 05/25/2012 DDD (degenerative disc disease), cervical 09/03/2018 [...] 3 severe COPD by GOLD classification ([facility]) 2018 Tobacco use greater than 30 years [...] Puffs as instructed four times dailyas needed. vetdmwppibr-rgncjmdau-ymiirlqd (TRELEGY ELLIPTA) 100-62.5-25 mcg inhalation powder DAILY nmitwk-guqyxshu-ahepmeq (CREON 24) 24,000-76,000 -120,000 unit delayed release [...] Easton APRN.IGOR documented in this encounterMercy Health St. [facility]03-02-2023 Miscellaneous Notes* Telephone Encounter - Mihaela Cheng RN - 11/27/2022 4:03 PM EST Images from the original note were not included. Pt contacted with provider's messages below. Pt had Neurology appt 11/26/22. Pt made appt to see Soila Eatson CNP for 11/28/22 to discuss labs and [...] issues Misbah Cisneros MD documented in this encounterMercy Health St. [facility]03-02-2023 Miscellaneous Notes* Telephone Encounter - Mihaela [...] to find transportation for EMG scheduled in [place]. Patient is requesting to have EMG done at [facility]. Order faxed per patient request. Referral placed. EMG not cancelled yet incase unable to schedule with [facility]. Janene Grimm RN documented in this encounterMercy Health St. [facility]03-01-2023 Instructions* Patient Instructions* Mariluz Verduzco PA-C [...] Please reach out with any questions. [facility] address: [address] [place] [address] Dr. [place], [place] [address] documented in [address] [facility]03-01-2023 History of Present illness Narrative* Mariluz Verduzco PA-C - 11/26/2022 1:16 PM EST Images from the original note were not included. Neurology Outpatient Clinic Date: November 26, 2022 Patient Name: Gracie Banuelos Referring physician: Misbah Elkins [address] [facility] [address] Consult requested for paresthesias by Dr. Elkins. Recommendations will be communicated via shared medical record or US mail. Primary physician: [place] [address] Reason for Evaluation: Paresthesias Subjective HPI Gracie [...] by mouth once daily. 30 tablet 11 bualjnanmuj-rsmrhzbfc-fhpqoeti (TRELEGY ELLIPTA) 100-62.5-25 mcg inhalation powder DAILY arnayg-dqlzpije-fbkcsup (CREON 24) 24,000-76,000 -120,000 unit delayed release [...] Alcoholic hepatitis 05/18/2012 Alcoholic liver disease ([facility]) 11/16/2013 Anemia Anxiety with depression Asthma Chronic hypoxemic respiratory failure ([facility]) COPD (chronic obstructive pulmonary disease) ([facility]) 05/25/2012 DDD (degenerative disc disease), cervical 09/03/2018 [...] 3 severe COPD by GOLD classification ([facility]) 2018 Tobacco use greater than 30 years [...] Negative Coordination: finger-to- nose-finger intact bilaterally and jrsw-iz-emlr intact bilaterally. Gait: Patient's gait is normal [...] which included preparing to see the patient, nudh-ie-rzgz patient care, completing clinical documentation, obtaining and/or reviewing separately obtained history, performing a medically appropriate examination, counseling and educating the pat ient/family/caregiver, and ordering medications, tests, or procedures. Mariluz Verduzco PA-C [facility] Neurology This document has been created with the use of voice recognition technology. It may contain inaccuracies: (e.g. misspellings, inaccurate syntax or word sense) that have escaped review. documented in this encounterMercy Health St. [facility]02-28-2023 History of Present illness Narrative* Misbah [...] disease (HCC) Alcohol dependence in remission ([facility]) 07/10/2015 Alcohol use disorder 08/27/2017 Alcohol-induced pancreatitis Alcoholic hepatitis 05/18/2012 Alcoholic liver disease ([facility]) 11/16/2013 Anemia Anxiety with depression Asthma Chronic hypoxemic respiratory failure ([facility]) COPD (chronic obstructive pulmonary disease) ([facility]) 05/25/2012 DDD (degenerative disc disease), cervical 09/03/2018 [...] 3 severe COPD by GOLD classification ([facility]) 2018 Tobacco use greater than 30 years [...] inhaler lisinopril (ZESTRIL, PRINIVIL) 10 mg tablet jesatwasfgx-aeemugumw-xrldboyt (TRELEGY ELLIPTA) 100-62.5-25 mcg inhalation powder vwdqmj-enrpaenh-mxkacdo (CREON 24) 24,000-76,000 -120,000 unit delayed release [...] Elkins MD documented in this encounterMercy Health St. [facility]02-28-2023 Nurse Note* Eda Moore LPN - 11/25/2022 9:53 AM EST and had put a hold on eye surgery for now. [facility] for possible surgery documented in this encounterMercy Health St. [facility]02-15-2023 Miscellaneous Notes* Telephone Encounter - Eileen [...] really worsening. documented in this encounterMercy Health St. [facility]02-14-2023 History of Present illness Narrative* Sonja [...] 4:49 PM documented in this encounterMercy Health St. Anne [facility]02-14-2023 History of Present illness Narrative* Misbah [...] regularly. Was admitted with ocular cellulitis at [facility] and was transferred to [facility] and for oculoplastics. No interventions were made by occulopastics as she got better on abx on her own In the [facility] she had an episode of respiratory [...] disease (HCC) Alcohol dependence in remission ([facility]) 07/10/2015 Alcohol use disorder 08/27/2017 Alcohol-induced pancreatitis [...] 3 severe COPD by GOLD classification ([facility]) 2018 Tobacco use greater than 30 years [...] inhaler lisinopril (ZESTRIL, PRINIVIL) 10 mg tablet fdqwrvjgimh-qurzexavt-qnrtqpik (TRELEGY ELLIPTA) 100-62.5-25 mcg inhalation powder wcrkdj-alpqftnk-vqqdmnq (CREON 24) 24,000-76,000 -120,000 unit delayed release [...] ASSESSMENT/PLAN: 1. CHUY (acute kidney injury) ([facility]) - ICD9: 584.9, ICD10: N17.9 (primary diagnosis) - BASIC METABOLIC PNL 2. Chronic obstructive pulmonary disease, unspecified COPD type ([facility]) - ICD9: 496, ICD10: J44.9 - XR [...] Elkins MD documented in this encounterMercy Health St. Anne [facility]02-09-2023 NoteTeaching Physician Note: I have seen and examined the patient and supervised the procedures performed. I personally obtained the ochoa portions of the history and the ophthalmologic exam. I reviewed the resident's documentation and discussed the patient's history and examination with the resident. I agree with the resident's decision making as documented in the resident's note. Yumiko Guerin MDT[facility]09-[address] Bonilla [facility] November 06, 2022 3:03pm Note Date/Time November 06, 2022 9 :43am [facility] Medical Records Department [address] [place] [address] Progress Note - Hospitalist 11/06/22939 MR#: [id number] Acct: [id number] Name: GRACIE BANUELOS Rep #:[id number] : 1965 57 From: Anastacia Bonilla MD PCP: CARMEN STAHL Status:ADM IN Location: [place] [address] Reason for Visit Reason for Visit: Diagnoses [...] 74.3 H, Lymph % (Auto) 11.1 L, Hernando % (Auto) 9.9, Eos % (Auto) 1.6, [...] prophylaxis: heparin Charges/Coding Visit Charges Inpatient E&M: 40599 Subs Hosp L2 11/06/22 1503 <Electronically signed by Anastacia Bonilla MD> Cosigner Signature (if applicable): CC: ~ Signed [facility] Work Phone: 1(760) 830-272002-09-[address] Iverson [facility] November 06, 2022 2:28pm Note Date/Time November 06, 2022 2 :28pm [facility] Medical Records Department [address] [place] [address] Progress Note - Nephrology 11/06/22 1427 MR#: [id number] Acct: [id number] Name: GRACIE BANUELOS Rep #:[id number] : 1965 57 From: Courtney sanders MD PCP: SOILA EASTON, TOPSTITCHER ZIGZAG-C Status:ADM IN Location: [place] [address]- 1 Subjective Subjective No new complaints. Breathing [...] 74.3 H, Lymph % (Auto) 11.1 L, Hernando % (Auto) 9.9, Eos % (Auto) 1.6, [...] Acute renal failure. Prior to admission at [facility] and at the time ofadmission at [facility] creatinine was normal. She was subsequently transferred to [facility]. Discharge creatinine was 1.5. Urine analysis over [...] Cosigner Signature (if applicable): CC: ~ Signed [facility] Work Phone: 1([phone]) 960-893602-09-2023 History of Present illness Narrative* Yumiko Guerin [...] Seen with Dr. Guerin documented in this [id number] Sebastian [facility] November 06, 2022 8:41am Note Date/Time November 06, 2022 5 :54am [facility] Medical Records Department [address] [place] [address] Progress Note - Laundry Operator Finishing 11/06/22 0553 MR#: [id number] Acct: [id number] Name: GRACIE BANUELOS Rep #:[id number] : 1965 57 From: Gonzalo Sebastian DO PCP: SOILA EASTON TOPSTITCHER ZIGZAG-C Status:ADM IN Location: ICU CVICU20 3-1 Assessment [...] medicationsas indicated. This note was generated with Wurld[employer] dictation software. It may contain incorrectwords, spelling, [...] 74.3 H, Lymph % (Auto) 11.1 L, Hernando % (Auto) 9.9, Eos % (Auto) 1.6, [...] Psych cooperative Charges/Coding Visit Charges Inpatient E&M: 27978 Subs Hosp L2 11/06/22 0841 <Electronically signed by Gonzalo Sebastian DO> Cosigner Signature (if applicable): CC: ~ Signed [facility] Work Phone: [phone] Progress [facility] November 05, 2022 4:09pm Note Date/Time November 05, 2022 1 2:55pm [facility] Medical Records Department [address] [place] [address] Progress Note - Hospitalist 11/05/22 1252 MR#: [id number] Acct: [id number] Name: GRACIE BANUELOS Rep #:[id number] : 1965 57 From: Anastacia Bonilla MD PCP: SOILA EASTON [employer]STITCHER ZIGZ[employer]-C Status:ADM IN Location: ICU CVICU20 3-1 Reason [...] Clarity Clear, Urine pH 6.0, Ur Specific [place] 1.015, Urine Protein 30 H, Urine Glucose [...] 85.4 H, Lymph % (Auto) 4.8 L, Hernando % (Auto) 4.4, Eos % (Auto) 0.6, [...] prophylaxis: heparin Charges/Coding Visit Charges Inpatient E&M: 19407 Subs Hosp L2 11/05/22 1609 <Electronically signed by Anastacia Bonilla MD> Cosigner Signature (if applicable): CC: ~ Signed [facility] Work Phone: [phone]) 744-882802-08-2023 Consult note Author [facility] November 05, 2022 4:07pm Note Date/Time November 05, 2022 9 :45[facility] Medical Records Department [address] [facility] [place] [address] Pharmacokinetic/Renal -Consult 11/05/22 09 MR#: [id number] Acct: [id number] Name: GRACIE BANUELOS Salvatore Rep #:[id number] : 1965 57 From: Donn Wilson PCP: SOILA EASTON, TOPSTITCHER ZIGZAG-C Status:ADM IN Y Location: ICU CVICU20 3-1 [...] Date Anastacia Bonilla MD CC: ~ Signed [facility] Work Phone: 1(339) [phone] Iverson [facility] November 05, 2022 10:42am Note Date/Time November 05, 2022 1 0:42am [facility] Medical Records Department [address] [place] [address] Progress Note - Nephrology 11/05/22 1037 MR#: [id number] Acct: [id number] Name: GRACIE BANUELOS Rep #:[id number] : 1965 57 From: Courtney sanders MD PCP: SOILA EASTON, TOPSTITCHER ZIGZAG-C Status:ADM IN Location: ICU CVICU20 3-1 Subjective [...] Clarity Clear, Urine pH 6.0, Ur Specific [place] 1.015, Urine Protein 30 H, Urine Glucose [...] 85.4 H, Lymph % (Auto) 4.8 L, Hernando % (Auto) 4.4, Eos % (Auto) 0.6, [...] Acute renal failure. Prior to admission at [facility] and at the time ofadmission at [facility] creatinine was normal. She was subsequently transferred to [facility]. Discharge creatinine was 1.5. Urine analysis over [...] Cosigner Signature (if applicable): CC: ~ Signed [facility] Work Phone: 1(328) 287-527302-08-[address] Sebastian [facility] November 05, 2022 9:58am Note Date/Time November 05, 2022 5 :52am [facility] Medical Records Department [address] [place] [address] Progress Note - Laundry Operator Finishing 11/05/22 0551 MR#: [id number] Acct: [id number] Name: GRACIE BANUELOS Rep #:[id number] : 1965 57 From: Gonzalo Sebastian DO PCP: SOILA EASTON, TOPSTITCHER ZIGZAG-C Status:ADM IN Location: ICU CVICU20 3-1 Assessment [...] medicationsas indicated. This note was generated with Wurld[employer] dictation software. It may contain incorrectwords, spelling, [...] Clarity Clear, Urine pH 6.0, Ur Specific [place] 1.015, Urine Protein 30 H, Urine Glucose [...] 85.4 H, Lymph % (Auto) 4.8 L, Hernando % (Auto) 4.4, Eos % (Auto) 0.6, [...] Behavior: restless Charges/Coding Visit Charges Inpatient E&M: 97433 Subs Hosp L3 11/05/22 0958 <Electronically signed by Gonzalo Sebastian DO> Cosigner Signature (if applicable): CC: ~ Signed [facility] Work Phone: [phone]) [phone] Bonilla [facility] November 05, 2022 7:20am Note Date/Time November 04, 2022 9 :22pm [facility] Medical Records Department [address] [place] [address] Pharmacokinetic/Renal -Consult 11/04/222119 MR#: [id number] Acct: [id number] Name: GRACIE BANUELOS Rep #:[id number] : 1965 57 From: Sudhir Lott [facility] PCP: SOILA EASTON, TOPSTITCHER ZIGZAG-C Status:ADM IN Y Location: ICU CVICU20 3-1 [...] 0800 11/04/222121 <Electronically signed by Sudhir [facility]> Date _ Sudhir [facility] 11/05/22 0720 <Electronically signed by Anastacia cisneros MD> Cosigner Signature (if applicable): Date Anastacia Bonilla MD CC: ~ Signed [facility] Work Phone: [phone]) [phone] Progress note Author [facility] November 04, 2022 3:49pm Note Date/Time November 04, 2022 1 0:22[facility] Medical Records Department [address] [place] [address] Progress Note - Hospitalist 11/04/22 1020 MR#: [id number] Acct: [id number] Name: GRACIE BANUELOS Rep #:[id number] : 1965 57 From: Anastacia Bonilla MD PCP: SOILA EASTON, TOPSTITCHER ZIGZAG-C Status:ADM IN Location: ICU CVICU20 3-1 Subjective [...] 81.2 H, Lymph % (Auto) 5.6 L, Hernando % (Auto) 4.6, Eos % (Auto) 5.9 [...] prophylaxis: lovenox Charges/Coding Visit Charges Inpatient E&M: 18505 Subs Hosp L3 Reason for Visit Reason for Visit: Diagnoses Chronic obstructive pulmonary disease, unspecified (11/01/22) Acute kidney failure, unspecified (11/01/22) Nausea with vomiting, unspecified (11/01/22) Diarrhea, unspecified (11/01/22) 11/04/22 0208 <Electronically signed by Anastacia Bonilla MD> Cosigner Signature (if applicable): CC: ~ Signed [facility] Work Phone: 1(700) 120-612302-07-[address] Iverson [facility] November 04, 2022 11:44am Note Date/Time November 04, 2022 1 1:44am [facility] Medical Records Department [address] [place] [address] Consultation - Nephrology 11/04/22 1139 MR#: [id number] Acct: [id number] Name: GRACIE BANUELOS Rep #:[id number] : 1965 57 From: Courtney sanders MD PCP: SOILA EASTON, TOPSTITCHER ZIGZAG-C Status:ADM IN Location: ICU CVICU20 3-1 Assessment & Plan Assessment/Plan (1) Acute kidney injury: PLAN: Acute renal failure. Prior to admission at [facility], at the time of admission at [facility] creatinine was normal. [facility]. Discharge creatinine was 1.5. Urine analysis over [...] [facility] HPI Consult Data Date of Consult: 11/04/22 HPI Narrative Reason for Consultation: Acute renal failure HPI Narrative: GRACIE BANUELOS, is a 57 F who presents to the hospital with severe diarrhea. Nephrology on consultation for acute renal failure. No prior kidney disease. Baseline creatinine was normal. She was initially admitted to [facility] followed by [facility]. Admission diagnosis was orbital cellulitis. Was seen by ophthalmology at [facility] as well. Admission creatinine was normal. Discharge [...] Getting a CT chest abdomen. [facility] Medical History Abdominal pain Alcohol abuse [...] Q6H antibiotic 11/01/22 [History Last Taken Unknown] epewco-jozdqarc-ykkfubu 24,000-76,000-120,000 unit capsule,delayed rel (Creon) 1cap PO [...] Allergy Hives Verified 11/01/22 19:37 hydrocodone [From [place]] AdvReac Itching Verified 11/01/22 19:37 Family History [...] 81.2 H, Lymph % (Auto) 5.6 L, Hernando % (Auto) 4.6, Eos % (Auto) 5.9 [...] Iverson MD> Cosigner Signature (if applicable): CC: TOPSTITCHER ZIGZAGSierraC Ani Eduardo; TOPSTITCHER ZIGZAG-C SOILA EASTON; Dr. Ciarra Ross MD; Dr. Freddie Perdue MD; Dr. Gonzalo Sebastian DO; Dr. Courtney Iverson MD; Dr. Olivier Coffman MD; Dr. Lisa Ochoa MD; Dr. Dieter Harrison MD~ Signed [facility] Work Phone: 1([phone]) 208-278902-07-[address] Sebastian [facility] November 04, 2022 10:07am Note Date/Time November 04, 2022 7 :12am [facility] Medical Records Department [address] [place] [address] Progress Note - Laundry Operator Finishing 11/04/2209 MR#: [id number] Acct: [id number] Name: GRACIE BANUELOS Rep #:[id number] : 1965 57 From: Gonzalo Sebastian DO PCP: SOILA EASTON, TOPSTITCHER ZIGZAG-C Status:ADM IN Location: ICU CVICU20 3-1 Assessment [...] medicationsas indicated. This note was generated with Ethertronicsation software. It may contain incorrectwords, spelling, and [...] 81.2 H, Lymph % (Auto) 5.6 L, Hernando % (Auto) 4.6, Eos % (Auto) 5.9 [...] affect normal Charges/Coding Visit Charges Inpatient E&M: 64257 Subs Hosp L2 11/04/22 1007 <Electronically signed by Gonzalo Sebastian DO> Cosigner Signature (if applicable): CC: ~ Signed [facility] Work Phone: 1(112) 606-934302-06-[address] Bonilla [facility] November 03, 2022 3:59pm Note Date/Time November 03, 2022 3 :06pm [facility] Medical Records Department [address] [place] [address] Progress Note - Hospitalist 11/03/22 1501 MR#: [id number] Acct: [id number] Name: GRACIE BANUELOS Rep #:[id number] : 1965 57 From: Anastacia Bonilla MD PCP: SOILA EASTON, TOPSTITCHER ZIGZAG-C Status:ADM IN Location: ICU CVICU20 3-1 Subjective [...] 74.5 H, Lymph % (Auto) 11.6 L, Hernando % (Auto) 6.9, Eos % (Auto) 5.0, [...] 94.5 H, Lymph % (Auto) 2.2 L, [place] % (Auto) 1.9, Eos % (Auto) 0.1, [...] 20:11 EST Reading Location ID and State: [facility] / [place] , Service support , Rhythm [...] prophylaxis: lovenox Charges/Coding Visit Charges Inpatient E&M: 70840 Subs Hosp L3 Reason for Visit Reason for Visit: Diagnoses Chronic obstructive pulmonary disease, unspecified (11/01/22) Acute kidney failure, unspecified (11/01/22) Diarrhea, unspecified (11/01/22) 11/03/22 1559 <Electronically signed by Anastacia Bonilla MD> Cosigner Signature (if applicable): CC: ~ Signed [facility] Work Phone: 1([phone]) 467-211902-06-[address] Sebastian [facility] November 03, 2022 8:27am Note Date/Time November 03, 2022 7 :12am [facility] Medical Records Department [address] [facility] [place] [address] Consultation - Laundry Operator Finishing 11/03/22709 MR#: [id number] Acct: [id number] Name: GRACIE BANUELOS Rep #:[id number] : 1965 57 From: Gonzalo Sebastian DO [...] medicationsas indicated. This note was generated with Ethertronicsation software. It may contain incorrectwords, spelling, and [...] medication. The patient was recently admitted in [place] for periorbital cellulitis. The patient reported to [...] Solu-Medrol, Ativan and aerosol treatments. [facility] Medical History Abdominal pain Alcohol abuse [...] Q6H antibiotic 11/01/22 [History Last Taken Unknown] rihjma-mqukjjvy-hbtobxo 24,000-76,000-120,000 unit capsule,delayed rel (Creon) 1cap PO [...] Allergy Hives Verified 11/01/22 19:37 hydrocodone [From [place]] AdvReac Itching Verified 11/01/22 19:37 Family History [...] 74.5 H, Lymph % (Auto) 11.6 L, Hernando % (Auto) 6.9, Eos % (Auto) 5.0, [...] 94.5 H, Lymph % (Auto) 2.2 L, [place]ando % (Auto) 1.9, Eos % (Auto) 0.1, [...] 34.6 L ABG pO2 80 111 H Sregei Test Positive Positive Respiration Rate 12 O2 Delivery Device NRB BiPAP POC PEEP 8 Crit Call To/Read Back Yes Rhythm Strip Rhythm Strip: Sinus Rhythm Rate: 99 Ectopy: None Radiology Impression Chest X-Ray 11/02/22 19:56 IMPRESSION: Lower lobe infiltrate suggesting pneumonia. Electronically Signed: Carl Zarco MD at 20:11 EST Reading Location ID and State: [facility] / [place] , Service support , Charges/Coding Visit Charges Inpatient E&M: 06524 Init Hosp L3 11/03/22 0827 <Electronically signed by Gonzalo Sebastian DO> Cosigner Signature (if applicable): CC: TOPSTITCHER ZIGZAGMiriam Eduardo; TOPSTITCHER ZIGZAGMiriam EASTON; Dr. Ciarra Ross MD; Dr. Freddie Perdue MD; Dr. Gonzalo Sebastian DO; Dr. Oilvier Coffman MD; Dr. Lisa Ochoa MD; Dr. Dieter Harrison MD~ Signed [facility] Work Phone: [phone] Ross [facility] November 02, 2022 9:51pm Note Date/Time November 02, 2022 9 :10pm [facility] Medical Records Department [address] [place] [address] Progress Note 11/02/222107 MR#: [id number] Acct: [id number] Name: BANUELOSFERNIEGRACIE S Rep #:[id number] : 1965 57 From: Ciarra Ross MD PCP: SOILA EASTON, TOPSTITCHER ZIGZAG-C Status:ADM IN Location: ICU CVICU20 3-1 Progress [...] 11/02/222150 <Electronically signed by Ciarra Ross MD> Ciarar Ross MD Cosigner Signature (if applicable): CC: ~ Signed [facility] Work Phone: [phone] Fatima [facility] November 02, 2022 8:23pm Note Date/Time November 02, 2022 8 :19pm [facility] Medical Records Department [address] [place] [address] Progress Note - Hospitalist 11/02/222014 MR#: [id number] Acct: [id number] Name: GRACIE BANUELOS Salvatore Rep #:[id number] : 1965 57 From: Mahamed Fatima DO PCP: SOILA EASTON TOPSTITCHER ZIGZAG-C Status:ADM IN Location: ICU CVICU20 3-1 Hospitalist [...] of critical care time. Procedures Hospitalists Procedures: 34822 Critial Care 1st Hr 11/02/222022 <Electronically signed by Mahamed Fatima DO> Cosigner Signature (if applicable): CC: ~ Signed [facility] Work Phone: 1([phone]) 535-994602-05-[address] Ochoa [facility] November 02, 2022 12:07pm Note Date/Time November 02, 2022 1 2:07pm [facility] Medical Records Department [address] [place] [address] Progress Note - Hospitalist 11/02/22 1156 MR#: [id number] Acct: [id number] Name: GRACIE BANUELOS Rep #:[id number] : 1965 57 From: Lisa Ochoa MD PCP: SOILA EASTON, TOPSTITCHER ZIGZAG-C Status:ADM IN Location: [place] [address] Subjective Subjective Reports still feeling little dehydrated [...] % (Auto) 66.4, Lymph % (Auto) 16.8L, [place] % (Auto) 11.3 H, Eos % (Auto) [...] (Auto) 62.9, Lymph % (Auto) 17.1 L, [place] % (Auto) 13.2 H, Eos % (Auto) [...] alcoholic hepatitis, COPD, GERD who presented to [facility] 11/01 with poor urinary output and flank pain for 1 day. She was recently discharged from [facility] [place] after being transferred from [facility] with right orbital cellulitis for acute [...] documentation, 30minutes Charges/Coding Visit Charges Inpatient E&M: 74349 Subs Hosp L2 11/02/22 1207 <Electronically signed by Lisa Ochoa MD> Cosigner Signature (if applicable): CC: ~ Signed [facility] Work Phone: [phone]) 142-951102-05-2023 History and physical note Author Dr. Ross [facility] November 02, 2022 1:42am Note Date/Time November 01, 2022 1 0:21pm [facility] Medical Records Department [address] [place] [address] H&P Exam - Hospitalist 11/01/221 MR#: [id number] Acct: [id number] Name: GRACIE BANUELOS Rep #:[id number] : 1965 57 From: Ciarra Ross MD PCP: SOILA EASTON, TOPSTITCHER ZIGZAG-C Status:ADM IN Location: CT3 RF748-7 HPI - General General Date of Admission: 11/01/22 Date of Service: 11/01/22 Chief Complaint: Poor urine output, bilateral flank pain- 1 day HPI Narrative Cristina BANUELOS, is a 57 F who presents the above. Patient was recently discharged from [facility] after being transferred from [facility] with right orbital cellulitis for acute ophthalmology evaluation. [facility], patient developed severe diarrhea with resultantAKI. [...] Q6H antibiotic 11/01/22 [History Last Taken Unknown] fhkqkn-oenozeqo-ybzyiku 24,000-76,000-120,000 unit capsule,delayed rel (Creon) 1cap PO [...] Allergy Hives Verified 11/01/22 19:37 hydrocodone [From [place]] AdvReac Itching Verified 11/01/22 19:37 Family History [...] Patient with recent CHUY from hospitalization [facility], reportedly improved Admitted creatinine of 2.05 Will [...] the bedside. Charges/Coding Visit Charges Inpatient E&M: 68153 Init Hosp L3 11/02/22 0142 <Electronically signed by Ciarra Ross MD> Cosigner Signature (if applicable): CC: CARMEN EASTON; Dr. Ciarra Ross MD~ Signed [facility] Work Phone: [phone]) 348-536402-05-[address] Tang [facility] November 01, 2022 10:20pm Note Date/Time November 01, 2022 8 :27pm [facility] Medical Records Department [address] [place] [address] Emergency Department Summary 11/01/22 MR#: [id number] Acct: [id number] Name: GRACIE BANUELOS Rep #:[id number] : 1965 57 From: Edmund Tang MD PCP: SOILA EASTON, TOPSTITCHER ZIGZAG-C Status:REG ER Location: ED HPI History of [...] for 3 days. Patient was transferred to [facility]. Records were reviewed. Patient did have stool [...] Anxiety 04/19/19 [History Last Taken 06/10/21 21:00] fkrlbr-ptknfnky-msrmrph 24,000-76,000-120,000 unit capsule,delayed rel 3 ea PO [...] Allergy Hives Verified 02/04/23 19:37 hydrocodone [From [place]] AdvReac Itching Verified 11/01/22 19:37 Family History [...] Acute hyponatremia Disposition Disposition: Acute Care Hospital [facility] What to do if you have Problems For any increased pain, shortness of breath, bleeding, nausea or vomiting, chestpain, or any unexpected problems, contact your Primary Care Provider. Call [facility] ([phone]) or report to the closest Emergency Room. Call 911 if necessary. 11/01/222219 <Electronically signed by Edmund Tang MD> Cosigner Signature (if applicable): CC: CARMEN EASTON ~ Signed [facility] Work Phone: [phone]) 277-252402-03-2023 History of Present illness Narrative* Misbah Elkins MD - 10/31/2022 11:46 AM EST Reason for Visit Patient presents with: Hospital F/U: follow up from [facility] and , right eye cellulitis mass behind eye and mass found in lungs per patient Gracie Banuelos is a 57 year old female who presents here today for Above Complaints.. Health Maintenance MAMMOGRAM HPI Was admitted with ocular cellulitis at [facility] and was transferred to [facility] and for oculopastics Prior [...] strained her self when she went to [facility]. Lisinopril was held. Cont the hold til [...] disease (HCC) Alcohol dependence in remission ([facility]) 07/10/2015 Alcohol use disorder 08/27/2017 Alcohol-induced pancreatitis Alcoholic hepatitis 05/18/2012 Alcoholic liver disease (HCC) 11/16/2013 Anemia Anxiety with depression Asthma Chronic hypoxemic respiratory failure (HCC) COPD (chronic obstructive pulmonary disease) ([facility]) 05/25/2012 DDD (degenerative disc disease), cervical 09/03/2018 [...] 3 severe COPD by GOLD classification ([facility]) 2018 Tobacco use greater than 30 years [...] inhaler lisinopril (ZESTRIL, PRINIVIL) 10 mg tablet ybjrfyiqekq-ybzcecyxm-mfmzxxol (TRELEGY ELLIPTA) 100-62.5-25 mcg inhalation powder sgsbre-gnfrflla-phgcdhm (CREON 24) 24,000-76,000 -120,000 unit delayed release [...] Elkins MD documented in this encounterMer[facility]02-01-2023 NoteSend Summary: Discharge Summary Providers: Provider RoleProvider Name ReferringCorrect Info, Needed Jessica Hammond Joy A PrimaryFree, Text Entry Note Recipients: Tai Peoples MD Correct Info, NeededMD Free, Text Entry, Soila Devi, SENIOR ERP CONSULTANT-PROPERTY DISPOSAL OFFICER Jessica Ellis MD Discharge: Summary: Admission Date: .23-Oct-2022 23:56:00 Discharge Date: 29-Oct-2022 Attending Physician at Discharge: Jessica Ellis Admission Reason: Preseptal Cellulitis(1) Final Discharge Diagnoses: Preseptal cellulitis of right eye Procedures: none Condition at Discharge: Fair Disposition at Discharge: .Home Vital Signs: T PRBPMAPSpO2 Value36.70317425/6397% Date/Time10/29 5: 5:122 5:122 5:122/ 5:12 Range(36.1C [...] vs. infiltrative mass. Vanc/zosyn were started at [facility]. Oculoplastic were consulted and [...] You presented to us as transfer from [facility] for a possible biopsy of the [...] Care Provider Scheduled Date/Time: 15-Dec-2022 16:00 Location: [address] [place] [address], [place] [phone] fax Follow-Up Appointment 02: Physician/Dept/Service: Ophthalmology: Dr Ortega Scheduled Date/Time: 03-Dec-2022 15:30 Location: [facility] [address] , [address] [facility] [place] [address] Follow-Up Appointment 03: Physicia (more content not included)...[facility]01-31-2023 NoteThis report has been cancelled.[facility]01-27-2023 Note History of Present Illness: /Lactating: Are You no Are You Currently Breastfeedingno Admission Reason: Preseptal Cellulitis HPI: She is a 57 year old woman with history of COPD (GOLD Stage 3, FEV1 55%), anxiety, HTN, DLD who is presenting as a transfer to [facility] from [facility] for further management of preseptal cellulitis [...] she presented to the ER initially in [place]. A brief summary of her course prior to arrival to [facility] is seen in the two paragraphs below. On or about 10/19 she had pain in her right eye that worsened to the point she was unable to tolerate it at home with ibuprofen so she presented to the [place] Emergency Department. At that time she had a CT scan of her orbits which showed right orbital preseptal and orbital cellulitis without evidence of orbital compartment syndrome. She had elevated WBC count to 13.9 with neutrophilic predominance. She had CRP elevated to 42.6 and ESR of 75 mm/h. She was given one dose of clindamycin in the [place] ER. On 10/20 she [facility] and evaluated by ophthalmology who recommended [...] On 10/22 ophthalmology recommended transfer to or [facility] for oculoplastics care given need for potential cut-down biopsy which was unable to be accommodated at [facility]. When I spoke with the patient [...] exacerbated with movement, especially the transit from [facility]. It was controlled at [...] daily Mirtazapine 45mg QHS Pertinent Labs/Imaging at [facility]/[place]: ESR/CRP elevated to 75 and 42 respectively. Blood Cx NGTD at [place] on arrival Rheumatoid Factor negative C. Diff [...] conjunctivitis. There is enha (more content not included)...[facility]01-27-2023 NoteDISCHARGE SUMMARY PATIENT INFORMATION: Name: Gracie Banuelos Date of Admission: 10/20/2022 8:44 AM Discharge Date: 10/23/2022 : 1965 57 year old Admitting Physician: Robby Bush MD PCP: No primary care provider on file. Discharge Physician: ROBBY BUSH TRANSFERRED TO [facility] COURSE AND OUTCOME: Gracie Banuelos is a 57 year old year old female who presented to [facility] on 10/20/2022 8:44 AM. Ms. Banuelos is a 57 yof with COPD, active tobacco abuse, anxiety, HTN, sent from OSH [[place] ED] for evaluation of right eye swelling, erythema and pain with movement. Infectious diseases, ENT, and Ophthalmology is consulted and she was started on empiric abx. MRI orbit Abnormal infiltration throughout the right retroantral and extraconal fat as well as the pterygopalatine fossa and diffusely throughout the right client director space with asymmetry of the muscles of mastication. ENT performed nasal endoscopy - without signs of fungal infection. ID recommended to hold antifungals Ophthalmology strongly recommended orbital biopsy to r/o infectious vs inflammation or lymphoma which could not be arranged at [facility]. Per ophthalmology recommendations and after discussing the patient, patient was transferred [facility] for further investigations. I examined pt on day of discharge. She was resting comfortably in bed, reports blurry vision and pain in her right eye Periorbital erythema and swelling much improved but eye redness persisted. She was transferred to [facility] on night of 10/23 ~2099. I was not at hospital during the transfer Please do not hesitate to contact [facility] division of Hospital Medicine if you have any questions or concerns. It was a pleasure getting to take care of your patient during her hospital stay. INPT CONSULTS IP ENT CONSULT IP INFECTIOUS DISEASE CONSULT F/U APPTS No follow-up provider specified. DIET: regular ACTIVITY: No restrictions DISPO: Discharged to TRANSFERRED TO [facility] []Home, []HHC, []SNF, []ECF, []Hospice, [...] capsule TREATMENT TEAM: Treatment Team: Emergency Medicine Lab Animal Technician: Edwina Doyle; Consulting Physician: Stevie Goetz Infectious [...] SKIN: Normal coloration, warm, AND dry. NEURO: manufacturing baker grossly intact, normal speech, no lateralizing weakness. PSYCH: Awake, alert, oriented x 4. Affect appropriate. LABS Recent Labs 10/22/22 0958 WBC 16.0* HCT 35.3* PLT 332 Supervisor [employer] Assessment IMAGING: CT CHEST W/O CONTRAST Result [...] emphysema is p (more content not included)...[facility] [id number] NoteDISCHARGE SUMMARY PATIENT INFORMATION: Name: Gracie Banuelos Date of Admission: 10/20/2022 8:44 AM Discharge Date: 10/23/2022 : 1965 57 year old Admitting Physician: Robby Bush MD PCP: No primary care provider on file. Discharge Physician: ROBBY BUSH TRANSFERRED TO [facility] COURSE AND OUTCOME: Gracie Banuelos is a 57 year old year old female who presented to [facility] on 10/20/2022 8:44 AM. Ms. Banuelos is a 57 yof with COPD, active tobacco abuse, anxiety, HTN, sent from OSH [[place] ED] for evaluation of right eye swelling, erythema and pain with movement. Infectious diseases, ENT, and Ophthalmology is consulted and she was started on empiric abx. MRI orbit Abnormal infiltration throughout the right retroantral and extraconal fat as well as the pterygopalatine fossa and diffusely throughout the right client director space with asymmetry of the muscles of mastication. ENT performed nasal endoscopy - without signs of fungal infection. ID recommended to hold antifungals Ophthalmology strongly recommended orbital biopsy to r/o infectious vs inflammation or lymphoma which could not be arranged at [facility]. Per ophthalmology recommendations and after discussing the patient, patient was transferred [facility] for further investigations. I examined pt on day of discharge. She was resting comfortably in bed, reports blurry vision and pain in her right eye Periorbital erythema and swelling much improved but eye redness persisted. She was transferred to [facility] on night of 10/23 ~2099. I was not at hospital during the transfer Please do not hesitate to contact [facility] division of Hospital Medicine if you have any questions or concerns. It was a pleasure getting to take care of your patient during her hospital stay. INPT CONSULTS IP ENT CONSULT IP INFECTIOUS DISEASE CONSULT Ophthalmology F/U APPTS No follow-up provider specified. DIET: regular ACTIVITY: No restrictions DISPO: Discharged to TRANSFERRED TO [facility] []Home, []HHC, []SNF, []ECF, []Hospice, [...] capsule TREATMENT TEAM: Treatment Team: Emergency Medicine Lab Animal Technician: Edwina Doyle; Consulting Physician: Stevie Goetz Infectious Disease; PCNA: Sherron Briones; 1st call: Ani Thurman APRN-PROPERTY DISPOSAL OFFICER OBJECTIVE FINDINGS AT DISCHARGE: BP 119/90 (BP [...] SKIN: Normal coloration, warm, AND dry. NEURO: manufacturing baker grossly intact, normal speech, no lateralizing weakness. PSYCH: Awake, alert, oriented x 4. Affect appropriate. LABS No results for input(s): NA, K, CL, CO2, BUN, CREATININE, GLU, WBC, HCT, PLT in the last 72 hours. 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 Layering of (more content not included)...The [facility] [id number] NoteDAILY PROGRESS NOTE Length of stay: 3 [...] Daily ARIPiprazole, 5 mg, Oral, At Bedtime axsofut-gqgbbw-kpwbmtir, 12,000 Units, Oral, 3x Daily with Meals [...] in differential Plans Ophthalmology recommends transfer to [facility]/ orbital surgeon for biopsy. Discussed [...] excellent care from the nursing staff, and wind farm support specialist I personally reviewed patient medical record including blood work and radiology report Total time spent with patient is greater than 30 minutes more than 70% of the time is spent in direct patient care Dictated using voice recognition software. Document may contain errors not identified before finalizing. Robby Bush MD MS Pager # [phone] [facility] [id number] Telephone encounter Note* Telephone Encounter - Jaime Aggarwal MD - 10/23/2022 12:45 PM EST Spoke to Domonique, pt sister Explained rationale for biopsy and transfer All questions answered [facility] Work Phone: 1(727) 147-359001-26-2023 Miscellaneous Notes* Telephone Encounter - Jaime Aggarwal [...] Domonique back to discuss her sister Dx's [phone] ( PT will be home until 2:30 pm) documented in this [id number] Telephone encounter Note* Telephone Encounter - Airam Adam - 10/23/2022 12:08 PM EST PT's sister, Domonique calling in stating Dr. Aggarwal called and LVM for her regarding her sister that is inpatient. Please call Domonique back to discuss her sister Dx's [phone] ( PT will be home until 2:30 pm) [id number] NoteOTOLARYNGOLOGY HEAD AND NECK SURGERY DAILY PROGRESS [...] structures -ENT will continue to follow ENT [id number] Noman Prajapati MD PGY-3 Otolaryngology - Head AND Neck Surgery [facility] Service Pager: [phone] [id number] History of Present illness Narrative* Uri Peña [...] to orbital surgeon for biopsy: O-P at [facility] or Uri Peña MD * [...] pterygopalatine fossa; [facility]'s [...] from ENT - Recommend transfer to or [facility] for oculoplastics care. The patient [...] Voices understanding of plan and AVS. Jaime Aggrawal MD Ophthalmology Resident Seen and discussed with Dr. Kidd and documented in this [id number] NoteDAILY PROGRESS NOTE Length of stay: 2 [...] Daily ARIPiprazole, 5 mg, Oral, At Bedtime sjyvytd-qmxoui-vpicwbdr, 12,000 Units, Oral, 3x Daily with Meals [...] excellent care from the nursing staff, and wind farm support specialist I personally reviewed patient medical record including blood work and radiology report Total time spent with patient is greater than 30 minutes more than 70% of the time is spent in direct patient care Dictated using voice recognition software. Document may contain errors not identified before finalizing. Robby Bush MD MS Pager # [phone] [facility] [id number] NoteOTOLARYNGOLOGY HEAD AND NECK SURGERY DAILY PROGRESS [...] structures -ENT will continue to follow ENT [id number] Note: ENT team attempted to scope patient two separate times earlier this afternoon after critical findings on the MRI were noted. Esdras Brambila DDS, MD ENT rotator ENT pager [phone] [facility] [id number] History of Present illness Narrative* Claire Ruiz - 10/21/2022 2:30 PM EST Pt states that she seeing double with both eyes open The images are vertical, one on top of the other. It doesn't happen all day. It comes and goes. VA: OD cc: 20/30+3 OS:cc: 20/40-2 Ph: 20/25-1 Pupil OU 3/round/minimal/none EOM: Full CVF OU: Full IOP OD: 11 OS:08 * oNreen Denson MD - 10/21/2022 2:30 PM EST [...] and Jaime Aggarwal MD documented in this [id number] Note10/21/22 1143 Assessment and Discharge Planning Evaluation READMISSION LESS THAN 30 DAYS No READMISSION RISK SCORE IS Low Risk INTERVIEWED Patient;Chart Review COGNITIVE STATUS Oriented to person, place, time and location Functional Status Age Appropriate;Ambulates with medical technician (cane, walker, etc.) LIVING SITUATION Home - Own;Family PCP VERIFIED No ADMISSION INSURANCE Medicaid Medicaid [facility] HEALTH CARE PRIOR TO ADMISSION No [...] planning and needs as warranted. Katina Salas Associate Director Of Nursing (8:30-4:00)[facility] [id number] NoteDEPARTMYMICHIGAN MEDICAL [facility] MEDICINE HISTORY AND PHYSICAL EXAMINATION SERVICE DATE: 10/20/2022 PRIMARY CARE PHYSICIAN: No primary care provider on file. CHIEF COMPLAINT: right eyelid swelling and erythema HPI: Ms. Banuelos is a 57 yof with COPD, active tobacco abuse, anxiety, HTN, sent from [facility] [[place] [facility]] for evaluation of right eye swelling, [...] tablet (has no administration in time range) jqjiajd-vjqfjs-ggxrbblo (CREON) 75814 units capsule (12,000 Units Oral Given 10/20/221644) [...] tobacco abuse, anxiety, HTN, sent from OSH [[place] [facility]] admitted with right orbital cellulitis Assessment Principal Problem: Orbital cellulitis on right Active Problems: Chronic bronchitis (HCC) Anxiety Tobacco abuse HTN (hypertension) Ophthalmology and ENT is consulted - following Plan MRI orbit w/wo is ordered. CT chest w/o. Empiric abx Vancomycin and Zosyn [she had rash with penicillins as kid, denied anaphylactic react (more content not included)...[facility] [id number] History of Present illness Narrative* Jeffery Jin [...] that did not have beds, sent to [facility] for possible admission for orbital cellulitis [...] Seen with Dr. Guerin documented in this [id number] Telephone encounter Note* Telephone Encounter - Jeffy Garner MD - 10/20/2022 5:17 AM EST I was called by [facility] regarding a transfer from [place] ED. That facility is requesting transfer because [...] 13, ESR/CRP elevated. Discussed with provider at [place] [facility], advised they shoulddiscuss case with ophthalmology as patient may benefit from ED to ED transfer rather than direct admission to medicine for earlier ophthalmology evaluation. Patient is not accepted to medicine at this time, 5:18 AM 10/20/22. Jeffy Garner MD [id number] Miscellaneous Notes* Telephone Encounter - Jeffy Garner MD - 10/20/2022 5:17 AM EST I was called by [facility] regarding a transfer from [place] ED. That facility is requesting transfer because [...] 13, ESR/CRP elevated. Discussed with provider at [place] ED, advised they shoulddiscuss case with ophthalmology as patient may benefit from ED to ED transfer rather than direct admission to medicine for earlier ophthalmology evaluation. Patient is not accepted to medicine at this time, 5:18 AM 10/20/22. 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 Mo Velasco DO on 10/20/22 at 0555 Patient has been in the department waiting for bed availability at [facility]. She was a level 1 initially multiple callbacks they are unable to deliver a bed. I spoke with the patient she was okay with trying other hospitalsystems in the [facility]. Her visual acuity obtained 20/40 OD, [...] she should go to the emergency room. [facility] Medical History Abdominal pain Alcohol [...] Anxiety 04/19/19 [History Last Taken 06/10/21 21:00] xyhkiz-bpbwsblr-czuwyke 24,000-76,000-120,000 unit capsule,delayed rel 3 ea PO [...] Allergy Hives Verified 10/19/22 18:59 hydrocodone [From [place]] AdvReac Itching Verified 10/19/22 18:59 Family History [...] % (Auto) 63.4 Lymph % (Auto) 23.6 [place] % (Auto) 7.1 Eos % (Auto) 4.4 [...] with Dr. Jurado, on-call Dr. Acosta, her machine maintenance technician. He advises that if the patient [...] pressure. We spoke with both hospitals in [place] who are not excepting transfers at this time. Patient has been discussed with [facility] and patient has been accepted as [...] mg PO DAILY PRN PRN (Reason: Anxiety) urjwkk-gycomgji-qolypul 1 CAPSULE capsule 3 ea PO DAILY [...] Disposition Disposition: Acute Care Hospital Discharge Location: [facility] What to do if you have Problems For any increased pain, shortness of breath, bleeding, nausea or vomiting, chestpain, or any unexpected problems, contact your Primary Care Provider. Call [facility] ([phone]) or report to the closest Emergency Room. Call 911 if necessary. 10/19/222224 <Electronically signed by Tasneem Dykes MD> Cosigner Signature (if applicable): CC: CARMEN EASTON ~ Signed [facility] Work Phone: 1(248) 784-652411-30-2022 Instructions* Patient Instructions* Soila Easton APRN.CNP - 08/27/2022 1:16 PM EST Call [facility] and ask how to safely use your portable oxygen. Start trelegy daily as prescribed by pulmonology Use your oxygen at all times at 2L Use your albuterol inhaler as prescribed for shortness of breath. documented in this encounterMer[facility]11-30-2022 History of Present illness Narrative* Soila Easton APRN.CNP - 08/27/2022 12:53 PM EST CC: Patient presents with: Recheck: [facility] ER follow up, SOB, fevers in evenings HPI Gracie Banuelos is a 57 year old female who presents today for ER follow-up. Facility: [facility] ER Date of visit: 08/22/22 Reason [...] she is unsure how to appropriately supervisor hospitality house her portable oxygen. Also does not wear her oxygen at home unless she is very short of breath. Has not been taking her trelegy, does not wear her oxygen at home. Sees [facility] andwas instructed by them to go [...] disease (HCC) Alcohol dependence in remission ([facility]) 07/10/2015 Alcohol use disorder 08/27/2017 Alcohol-induced pancreatitis Alcoholic hepatitis 05/18/2012 Alcoholic liver disease (HCC) 11/16/2013 Anemia Anxiety with depression Asthma Chronic hypoxemic respiratory failure (HCC) COPD (chronic obstructive pulmonary disease) ([facility]) 05/25/2012 DDD (degenerative disc disease), cervical 09/03/2018 [...] 3 severe COPD by GOLD classification ([facility]) 2018 Tobacco use greater than 30 years [...] Take 1 tablet by mouth once daily. vsokdewmdmf-yoxiffmfk-xxozjygs (TRELEGY ELLIPTA) 100-62.5-25 mcg inhalation powder DAILY xjrprd-ldytvgtd-mjwxrxf (CREON 24) 24,000-76,000 -120,000 unit delayed release [...] DTAP,TDAP,TD Discontinued DATA REVIEWED: Outside chart from [facility] reviewed. ASSESSMENT/PLAN: 1. Chronic obstructive pulmonary [...] Easton APRN.CNP documented in this encounterMercy Health St. [facility]10-21-2022 History of Present illness Narrative* Soila [...] Gracie denies regular aerobic exercise. She watches [employer] for sodium, low fat and low cholesterol [...] 3 severe COPD by GOLD classification ([facility]) 2018 Tobacco use greater than 30 years [...] by mouth three times daily as needed. ptalutnjlde-afusmtkzo-soavdrgt (TRELEGY ELLIPTA) 100-62.5-25 mcg inhalation powder DAILY melatonin 10 mg TbER xeycmp-nrecrfzs-glqhshi (CREON 24) 24,000-76,000 -120,000 unit delayed release [...] Easton APRN.CNP documented in this encounterMercy Health St. [facility]09-28-2022 Miscellaneous Notes* Telephone Encounter - Evelyn Montgomery RN - 06/25/2022 11:21 AM EDT Patient recently on antibiotic for respiratory infection. C/o vaginal itching/irritation again now.Asking for refill of diflucan for yeast infection. Please file if okay. No need to call patient back if filed. Evelyn Montgomery RN documented in this encounterMercy Health St. [facility]09-16-2022 Miscellaneous Notes* Telephone Encounter - Janene [...] Grimm RN documented in this encounterMercy Health St. Anne Hospital08-30-2022 History of Present illness Narrative* Claudia [...] by mouth three times daily as needed. ylrukwxfqqb-zxhjrrpxf-titklqsm (TRELEGY ELLIPTA) 100-62.5-25 mcg inhalation powder DAILY [...] Take 1 tablet by mouth once daily. soimmh-ptvcpykq-wkrwjzo (CREON 24) 24,000-76,000 -120,000 unit delayed release [...] disease (HCC) Alcohol dependence in remission ([facility]) 07/10/2015 Alcohol use disorder 08/27/2017 Alcohol-induced pancreatitis Alcoholic hepatitis 05/18/2012 Alcoholic liver disease ([facility]) 11/16/2013 Anemia Anxiety with depression Asthma Chronic hypoxemic respiratory failure ([facility]) COPD (chronic obstructive pulmonary disease) ([facility]) 05/25/2012 DDD (degenerative disc disease), cervical 09/03/2018 [...] 3 severe COPD by GOLD classification ([facility]) 2018 Tobacco use greater than 30 years [...] 9:23 AM documented in this encounterMercy Health St. [facility] Hospital08-25-2022 Miscellaneous Notes* Telephone Encounter - Janene [...] Grimm RN documented in this encounterMercy Health St. [facility]08-05-2022 History of Present illness Narrative* RT [...] 9:43 AM documented in this encounter[facility] Miscellaneous Notes* Telephone Encounter - Eda [...] Moore LPN documented in this encounterMer[facility]. [facility]07[facility]2022 Miscellaneous Notes* Telephone Encounter - Marge Perkins RN - 04/17/2022 11:28 AM EDT [facility] called and notified of providers message and instructions. She voices understanding. Marge Babulski, RN * Telephone Encounter - Soila Easton APRN.CNP - 04/17/2022 11:15 AM EDT Please call [facility] and let them know Ibuprofen is discontinued. Was discussed later in appointment after prescription was sent. Only fill meloxicam at this time. Patient aware she should not take ibuprofen while on meloxicam as it was discussed in appointment. Thank you Soila Easton APRN.IGOR * Telephone Encounter - Suellen Leonard LPN - 04/17/2022 11:03 AM EDT Pharmacist Colleen from [facility] calling with med question. She received an Rx today for meloxicam & ibuprofen, pharmacist states these meds should not be taken at the same time & is asking if the directions should specify how far apart to take them? Please advise. Suellen Leonard LPN documented in this encounterMer[facility]07[facility]21-2022 History of Present illness Narrative* Soila [...] months ago. Goes to Dr Perdue at [facility], seen last fall for routine examand [...] No history of dysuria, frequency or incontinence BUILD TECHNICIAN: Negative for abnormal vaginal bleeding, abnormal vaginal discharge Skin: Negative for lesions, rash, and itching Endocrine: no weight gain, no weight loss, no cold intolerance, no heat intolerance, no polyuria, no polyphagia and no polydipsia Neurologic: No headache, weakness, numbness, tingling, dizziness, memory loss, syncope. PAST MEDICAL HISTORY Diagnosis Date Acute exacerbation of chronic obstructive airways disease (HCC) Alcohol dependence in remission ([facility]) 07/10/2015 Alcohol use disorder 08/27/2017 Alcohol-induced pancreatitis Alcoholic hepatitis 05/18/2012 Alcoholic liver disease ([facility]) 11/16/2013 Anemia Anxiety with depression Asthma Chronic hypoxemic respiratory failure (HCC) COPD (chronic obstructive pulmonary disease) ([facility]) 05/25/2012 DDD (degenerative disc disease), cervical 09/03/2018 [...] 3 severe COPD by GOLD classification ([facility]) 2018 Tobacco use greater than 30 years [...] Take 1 capsule by mouth once daily. rrdaij-idnuzrfy-olrtmen (CREON 24) 24,000-76,000 -120,000 unit delayed release [...] ICD9: 577.1, ICD10: K86.0 As above - [id number] 24,000-76,000-120,000 UNIT CAPSULE,DELAYED REL - CONSULT TO [...] Soila Easton APRN.CNP documented in this encounterCleveland [id number] Miscellaneous Notes* Telephone Encounter - Maribeth Owen [...] Owen LPN documented in this encounterMer[facility]06-24-2022 Miscellaneous Notes* Telephone Encounter - Janene Grimm RN - 03/21/2022 4:49 PM EDT Patient has been identified by name and date of : Yes Pharmacy phones for refill(s): Pending Prescriptions Disp Refills CHOLECALCIFEROL (VITAMIN D3) 50 MCG (2,000 UNIT) CAPSULE 28 capsule 11 Sig: Take 1 capsule by mouth once daily. LONG: No [id number] 24,000-76,000-120,000 UNIT CAPSULE,DELAYED REL 180 capsule 11 [...] Grimm RN documented in this encounterMercy [facility]. [facility]06-14-2022 Miscellaneous Notes* Telephone Encounter - Inge Holden APRN.CNP - 03/11/2022 3:35 PM EDT Order filed for Diflucan. Inge Holden APRN.CNP * Telephone Encounter - Tasneem Ocampo RN - 03/11/2022 3:26 PM EDT Patient has been taking antibiotic for upper respiratory infection/pnemonia for the last 7 days. Having vaginal itching. Denies discharge or odor. Requesting RX for Diflucan to be sent to [facility]. RX pending. Has not tried OTC Monistat. No need to call patient unless RX can't be sent. Tasneem Ocampo RN documented in this encounterMer[facility]. [facility]05-27-2022 Miscellaneous Notes* Telephone Encounter - dEa Moore LPN - 02/21/2022 12:04 PM EDT [...] Moore LPN documented in this encounterMer[facility]. [facility]04-06-2022 Miscellaneous Notes* Telephone Encounter - Zelda Cartagena Pss - 01/01/2022 12:50 PM EDT Called and scheduled patient for 01-10-22 with Soila Cartagena Pss * Telephone Encounter - Soila Easton APRN.CNP - 12/27/2021 12:54 PM EDT Patient needs routine follow up. Thank you Soila Esaton APRN.CNP documented in this encounterMercy Health [facility]. [facility]04-15-2021 History of Past illness Narrative* Problem Noted Date Resolved Date History of colonic polyps 01/10/20212020 Abdominal bloating 01/10/2021 01/10/2021 Alcohol dependence in remission 07/10/2015 11/02/2018 Pancreatitis chronic 05/26/2011 08/27/2017 Acute gastritis without mention of hemorrhage 01/03/2015 Gastroesophageal reflux disease 12/26/2009 01/10/2021 documented as of this encounter (statuses as of 01/01/2022) [facility] of Past illness Narrative* Problem Noted Date Resolved Date History of colonic polyps 01/10/20212020 Abdominal bloating 01/10/2021 01/10/2021 Alcohol dependence in remission 07/10/2015 11/02/2018 Pancreatitis chronic 05/26/2011 08/27/2017 Acute gastritis without mention of hemorrhage 01/03/2015 Gastroesophageal reflux disease 12/26/2009 01/10/2021 documented as of this encounter (statuses as of 02/14/2022) [facility] of Past illness Narrative* Problem Noted Date Resolved Date History of colonic polyps 01/10/20212020 Abdominal bloating 01/10/2021 01/10/2021 Alcohol dependence in remission 07/10/2015 11/02/2018 Pancreatitis chronic 05/26/2011 08/27/2017 Acute gastritis without mention of hemorrhage 01/03/2015 Gastroesophageal reflux disease 12/26/2009 01/10/2021 documented as of this encounter (statuses as of 02/21/2022) [facility] of Past illness Narrative* Problem Noted Date Resolved Date History of colonic polyps 01/10/20212020 Abdominal bloating 01/10/2021 01/10/2021 Alcohol dependence in remission 07/10/2015 11/02/2018 Pancreatitis chronic 05/26/2011 08/27/2017 Acute gastritis without mention of hemorrhage 01/03/2015 Gastroesophageal reflux disease 12/26/2009 01/10/2021 documented as of this encounter (statuses as of 03/11/2022) [facility] of [facility] illness Narrative* Problem Noted Date Resolved Date History of colonic polyps 01/10/20212020 Abdominal bloating 01/10/2021 01/10/2021 Alcohol dependence in remission 07/10/2015 11/02/2018 Pancreatitis chronic 05/26/2011 08/27/2017 Acute gastritis without mention of hemorrhage 01/03/2015 Gastroesophageal reflux disease 12/26/2009 01/10/2021 documented as of this encounter (statuses as of 03/24/2022) [facility] of [facility] illness Narrative* Problem Noted Date Resolved Date History of colonic polyps 01/10/20212020 Abdominal bloating 01/10/2021 01/10/2021 Alcohol dependence in remission 07/10/2015 11/02/2018 Pancreatitis chronic 05/26/2011 08/27/2017 Acute gastritis without mention of hemorrhage 01/03/2015 Gastroesophageal reflux disease 12/26/2009 01/10/2021 documented as of this encounter (statuses as of 03/24/2022) [facility] of Past illness Narrative* Problem Noted Date Resolved Date History of colonic polyps 01/10/20212020 Abdominal bloating 01/10/2021 01/10/2021 Alcohol dependence in remission 07/10/2015 11/02/2018 Pancreatitis chronic 05/26/2011 08/27/2017 Acute gastritis without mention of hemorrhage 01/03/2015 Gastroesophageal reflux disease 12/26/2009 01/10/2021 documented as of this encounter (statuses as of 04/17/2022) [facility] of [facility] illness Narrative* Problem Noted Date Resolved Date History of colonic polyps 01/10/20212020 Abdominal bloating 01/10/2021 01/10/2021 Alcohol dependence in remission 07/10/2015 11/02/2018 Pancreatitis chronic 05/26/2011 08/27/2017 Acute gastritis without mention of hemorrhage 01/03/2015 Gastroesophageal reflux disease 12/26/2009 01/10/2021 documented as of this encounter (statuses as of 04/17/2022) [facility] of [facility] illness Narrative* Problem Noted Date Resolved Date History of colonic polyps 01/10/20212020 Abdominal bloating 01/10/2021 01/10/2021 Alcohol dependence in remission 07/10/2015 11/02/2018 Pancreatitis chronic 05/26/2011 08/27/2017 Acute gastritis without mention of hemorrhage 01/03/2015 Gastroesophageal reflux disease 12/26/2009 01/10/2021 documented as of this encounter (statuses as of 04/18/2022) [facility] of [facility] illness Narrative* Problem Noted Date Resolved Date History of colonic polyps 01/10/20212020 Abdominal bloating 01/10/2021 01/10/2021 Alcohol dependence in remission 07/10/2015 11/02/2018 Pancreatitis chronic 05/26/2011 08/27/2017 Acute gastritis without mention of hemorrhage 01/03/2015 Gastroesophageal reflux disease 12/26/2009 01/10/2021 documented as of this encounter (statuses as of 04/18/2022) [facility] of [facility] illness Narrative* Problem Noted Date Resolved Date History of colonic polyps 01/10/20212020 Abdominal bloating 01/10/2021 01/10/2021 Alcohol dependence in remission 07/10/2015 11/02/2018 Pancreatitis chronic 05/26/2011 08/27/2017 Acute gastritis without mention of hemorrhage 01/03/2015 Gastroesophageal reflux disease 12/26/2009 01/10/2021 documented as of this encounter (statuses as of 05/03/2022) [facility] of [facility] illness Narrative* Problem Noted Date Resolved Date History of colonic polyps 01/10/20212020 Abdominal bloating 01/10/2021 01/10/2021 Alcohol dependence in remission 07/10/2015 11/02/2018 Pancreatitis chronic 05/26/2011 08/27/2017 Acute gastritis without mention of hemorrhage 01/03/2015 Gastroesophageal reflux disease 12/26/2009 01/10/2021 documented as of this encounter (statuses as of 05/16/2022) [facility] of Past illness Narrative* Problem Noted Date Resolved Date History of colonic polyps 01/10/20212020 Abdominal bloating 01/10/2021 01/10/2021 Alcohol dependence in remission 07/10/2015 11/02/2018 Pancreatitis chronic 05/26/2011 08/27/2017 Acute gastritis without mention of hemorrhage 01/03/2015 Gastroesophageal reflux disease 12/26/2009 01/10/2021 documented as of this encounter (statuses as of 05/22/2022) [address]15-2021 History of Past illness Narrative* Problem Noted Date Resolved Date History of colonic polyps 01/10/20212020 Abdominal bloating 01/10/2021 01/10/2021 Alcohol dependence in remission 07/10/2015 11/02/2018 Pancreatitis chronic 05/26/2011 08/27/2017 Acute gastritis without mention of hemorrhage 01/03/2015 Gastroesophageal reflux disease 12/26/2009 01/10/2021 documented as of this encounter (statuses as of 05/27/2022) [place] [address]-15-2021 History of Past illness Narrative* Problem Noted Date Resolved Date History of colonic polyps 01/10/20212020 Abdominal bloating 01/10/2021 01/10/2021 Alcohol dependence in remission 07/10/2015 11/02/2018 Pancreatitis chronic 05/26/2011 08/27/2017 Acute gastritis without mention of hemorrhage 01/03/2015 Gastroesophageal reflux disease 12/26/2009 01/10/2021 documented as of this encounter (statuses as of 06/13/2022) [address]15-2021 History of Past illness Narrative* Problem Noted Date Resolved Date History of colonic polyps 01/10/20212020 Abdominal bloating 01/10/2021 01/10/2021 Alcohol dependence in remission 07/10/2015 11/02/2018 Pancreatitis chronic 05/26/2011 08/27/2017 Acute gastritis without mention of hemorrhage 01/03/2015 Gastroesophageal reflux disease 12/26/2009 01/10/2021 documented as of this encounter (statuses as of 06/25/2022) [facility] of Past illness Narrative* Problem Noted Date Resolved Date History of colonic polyps 01/10/20212020 Abdominal bloating 01/10/2021 01/10/2021 Alcohol dependence in remission 07/10/2015 11/02/2018 Pancreatitis chronic 05/26/2011 08/27/2017 Acute gastritis without mention of hemorrhage 01/03/2015 Gastroesophageal reflux disease 12/26/2009 01/10/2021 documented as of this encounter (statuses as of 06/30/2022) [address]15-2021 History of Past illness Narrative* Problem Noted Date Resolved Date History of colonic polyps 01/10/20212020 Abdominal bloating 01/10/2021 01/10/2021 Alcohol dependence in remission 07/10/2015 11/02/2018 Pancreatitis chronic 05/26/2011 08/27/2017 Acute gastritis without mention of hemorrhage 01/03/2015 Gastroesophageal reflux disease 12/26/2009 01/10/2021 documented as of this encounter (statuses as of 07/18/2022) [facility] of Past illness Narrative* Problem Noted Date Resolved Date History of colonic polyps 01/10/20212020 Abdominal bloating 01/10/2021 01/10/2021 Alcohol dependence in remission 07/10/2015 11/02/2018 Pancreatitis chronic 05/26/2011 08/27/2017 Acute gastritis without mention of hemorrhage 01/03/2015 Gastroesophageal reflux disease 12/26/2009 01/10/2021 documented as of this encounter (statuses as of 08/27/2022) [address]15-2021 History of Past illness Narrative* Problem Noted Date Resolved Date History of colonic polyps 01/10/20212020 Abdominal bloating 01/10/2021 01/10/2021 Alcohol dependence in remission 07/10/2015 11/02/2018 Pancreatitis chronic 05/26/2011 08/27/2017 Acute gastritis without mention of hemorrhage 01/03/2015 Gastroesophageal reflux disease 12/26/2009 01/10/2021 documented as of this encounter (statuses as of 11/12/2022) [facility] of Past illness Narrative* Problem Noted Date Resolved Date History of colonic polyps 01/10/20212020 Abdominal bloating 01/10/2021 01/10/2021 Alcohol dependence in remission 07/10/2015 11/02/2018 Pancreatitis chronic 05/26/2011 08/27/2017 Acute gastritis without mention of hemorrhage 01/03/2015 Gastroesophageal reflux disease 12/26/2009 01/10/2021 documented as of this encounter (statuses as of 11/12/2022) [address]15-2021 History of Past illness Narrative* Problem Noted Date Resolved Date History of colonic polyps 01/10/20212020 Abdominal bloating 01/10/2021 01/10/2021 Alcohol dependence in remission 07/10/2015 11/02/2018 Pancreatitis chronic 05/26/2011 08/27/2017 Acute gastritis without mention of hemorrhage 01/03/2015 Gastroesophageal reflux disease 12/26/2009 01/10/2021 documented as of this encounter (statuses as of 11/25/2022) [facility] of Past illness Narrative* Problem Noted Date Resolved Date History of colonic polyps 01/10/20212020 Abdominal bloating 01/10/2021 01/10/2021 Alcohol dependence in remission 07/10/2015 11/02/2018 Pancreatitis chronic 05/26/2011 08/27/2017 Acute gastritis without mention of hemorrhage 01/03/2015 Gastroesophageal reflux disease 12/26/2009 01/10/2021 documented as of this encounter (statuses as of 11/26/2022) [facility] of Past illness Narrative* Problem Noted Date Resolved Date History of colonic polyps 01/10/20212020 Abdominal bloating 01/10/2021 01/10/2021 Alcohol dependence in remission 07/10/2015 11/02/2018 Pancreatitis chronic 05/26/2011 08/27/2017 Acute gastritis without mention of hemorrhage 01/03/2015 Gastroesophageal reflux disease 12/26/2009 01/10/2021 documented as of this encounter (statuses as of 11/27/2022) [facility] of Past illness Narrative* Problem Noted Date Resolved Date History of colonic polyps 01/10/20212020 Abdominal bloating 01/10/2021 01/10/2021 Alcohol dependence in remission 07/10/2015 11/02/2018 Pancreatitis chronic 05/26/2011 08/27/2017 Acute gastritis without mention of hemorrhage 01/03/2015 Gastroesophageal reflux disease 12/26/2009 01/10/2021 documented as of this encounter (statuses as of 11/27/2022) [facility] of Past illness Narrative* Problem Noted Date Resolved Date History of colonic polyps 01/10/20212020 Abdominal bloating 01/10/2021 01/10/2021 Alcohol dependence in remission 07/10/2015 11/02/2018 Pancreatitis chronic 05/26/2011 08/27/2017 Acute gastritis without mention of hemorrhage 01/03/2015 Gastroesophageal reflux disease 12/26/2009 01/10/2021 documented as of this encounter (statuses as of 11/27/2022) [place] [address]15-2021 History of Past illness Narrative* Problem Noted Date Resolved Date History of colonic polyps 01/10/20212020 Abdominal bloating 01/10/2021 01/10/2021 Alcohol dependence in remission 07/10/2015 11/02/2018 Pancreatitis chronic 05/26/2011 08/27/2017 Acute gastritis without mention of hemorrhage 01/03/2015 Gastroesophageal reflux disease 12/26/2009 01/10/2021 documented as of this encounter (statuses as of 11/28/2022) [facility] of [facility] illness Narrative* Problem Noted Date Resolved Date History of colonic polyps 01/10/20212020 Abdominal bloating 01/10/2021 01/10/2021 Severe protein-calorie malnutrition 01/07/2019 12/26/2022 Alcohol dependence in remission 07/10/2015 11/02/2018 Pancreatitis chronic 05/26/2011 08/27/2017 Acute gastritis without mention of hemorrhage 01/03/2015 Gastroesophageal reflux disease 12/26/2009 01/10/2021 documented as of this encounter (statuses as of 12/31/2022) [facility] of Past illness Narrative* Problem Noted Date Resolved Date History of colonic polyps 01/10/20212020 Abdominal bloating 01/10/2021 01/10/2021 Severe protein-calorie malnutrition 01/07/2019 12/26/2022 Alcohol dependence in remission 07/10/2015 11/02/2018 Pancreatitis chronic 05/26/2011 08/27/2017 Acute gastritis without mention of hemorrhage 01/03/2015 Gastroesophageal reflux disease 12/26/2009 01/10/2021 documented as of this encounter (statuses as of 03/13/2023) [address]15-2021 History of Past illness Narrative* Problem Noted Date Resolved Date History of colonic polyps 01/10/20212020 Abdominal bloating 01/10/2021 01/10/2021 Severe protein-calorie malnutrition 01/07/2019 12/26/2022 Alcohol dependence in remission 07/10/2015 11/02/2018 Pancreatitis chronic 05/26/2011 08/27/2017 Acute gastritis without mention of hemorrhage 01/03/2015 Gastroesophageal reflux disease 12/26/2009 01/10/2021 documented as of this encounter (statuses as of 03/24/2023) [address]15-2021 History of Past illness Narrative* Problem Noted Date Diagnosed Date Resolved Date History of colonic polyps 01/10/2021 Abdominal bloating 01/10/2021 Severe protein-calorie malnutrition 01/07/2019 12/26/2022 Alcohol dependence in remission 07/10/2015 11/02/2018 Pancreatitis chronic 05/26/2011 017 Acute gastritis without mention of hemorrhage 10/03/19 11 01/03/2015 Gastroesophageal reflux disease 12/26/2009 01/10/2021 documented as of this encounter (statuses as of 04/15/2023) [address]15-2021 History of Past illness Narrative* Problem Noted Date Diagnosed Date Resolved Date History of colonic polyps 01/10/2021 Abdominal bloating 01/10/2021 Severe protein-calorie malnutrition 01/07/2019 12/26/2022 Alcohol dependence in remission 07/10/2015 11/02/2018 Pancreatitis chronic 05/26/2011 017 Acute gastritis without mention of hemorrhage 10/03/19 11 01/03/2015 Gastroesophageal reflux disease 12/26/2009 01/10/2021 documented as of this encounter (statuses as of 05/19/2023) [address]15-2021 History of Past illness Narrative* Problem Noted Date Diagnosed Date Resolved Date History of colonic polyps 01/10/2021 Abdominal bloating 01/10/2021 Severe protein-calorie malnutrition 01/07/2019 12/26/2022 Alcohol dependence in remission 07/10/2015 11/02/2018 Pancreatitis chronic 05/26/2011 017 Acute gastritis without mention of hemorrhage 10/03/19 11 01/03/2015 Gastroesophageal reflux disease 12/26/2009 01/10/2021 documented as of this encounter (statuses as of 06/08/2023) [address]15-2021 History of Past illness Narrative* Problem Noted Date Diagnosed Date Resolved Date History of colonic polyps 01/10/2021 Abdominal bloating 01/10/2021 Severe protein-calorie malnutrition 01/07/2019 12/26/2022 Alcohol dependence in remission 07/10/2015 11/02/2018 Pancreatitis chronic 05/26/2011 017 Acute gastritis without mention of hemorrhage 10/03/19 11 01/03/2015 Gastroesophageal reflux disease 12/26/2009 01/10/2021 documented as of this encounter (statuses as of 06/10/2023) [facility] of Past illness Narrative* Problem Noted Date Diagnosed Date Resolved Date History of colonic polyps 01/10/2021 Abdominal bloating 01/10/2021 Severe protein-calorie malnutrition 01/07/2019 12/26/2022 Alcohol dependence in remission 07/10/2015 11/02/2018 Pancreatitis chronic 05/26/2011 017 Acute gastritis without mention of hemorrhage 10/03/19 11 01/03/2015 Gastroesophageal reflux disease 12/26/2009 01/10/2021 documented as of this encounter (statuses as of 06/12/2023) [facility] Narrative* Problem Noted Date Diagnosed Date Resolved Date History of colonic polyps 01/10/2021 Abdominal bloating 01/10/2021 Severe protein-calorie malnutrition 01/07/2019 12/26/2022 Alcohol dependence in remission 07/10/2015 11/02/2018 Pancreatitis chronic 05/26/2011 017 Acute gastritis without mention of hemorrhage 10/03/19 11 01/03/2015 Gastroesophageal reflux disease 12/26/2009 01/10/2021 documented as of this encounter (statuses as of 07/10/2023) [address]15-2021 History of Past illness Narrative* Problem Noted Date Diagnosed Date Resolved Date History of colonic polyps 01/10/2021 Abdominal bloating 01/10/2021 Severe protein-calorie malnutrition 01/07/2019 12/26/2022 Alcohol dependence in remission 07/10/2015 11/02/2018 Pancreatitis chronic 05/26/2011 017 Acute gastritis without mention of hemorrhage 10/03/19 11 01/03/2015 Gastroesophageal reflux disease 12/26/2009 01/10/2021 documented as of this encounter (statuses as of 11/04/2023) [facility] of Past illness Narrative* Problem Noted Date Diagnosed Date Resolved Date History of colonic polyps 01/10/2021 Abdominal bloating 01/10/2021 Severe protein-calorie malnutrition 01/07/2019 12/26/2022 Alcohol dependence in remission 07/10/2015 11/02/2018 Pancreatitis chronic 05/26/2011 017 Acute gastritis without mention of hemorrhage 10/03/19 11 01/03/2015 Gastroesophageal reflux disease 12/26/2009 01/10/2021 documented as of this encounter (statuses as of 12/17/2023) [address]15-2021 History of Past illness Narrative* Problem Noted Date Diagnosed Date Resolved Date History of colonic polyps 01/10/2021 Abdominal bloating 01/10/2021 Severe protein-calorie malnutrition 01/07/2019 12/26/2022 Alcohol dependence in remission 07/10/2015 11/02/2018 Pancreatitis chronic 05/26/2011 017 Acute gastritis without mention of hemorrhage 10/03/19 11 01/03/2015 Gastroesophageal reflux disease 12/26/2009 01/10/2021 documented as of this encounter (statuses as of 01/07/2024) [facility] of Past illness Narrative* Problem Noted Date Diagnosed Date Resolved Date History of colonic polyps 01/10/2021 Abdominal bloating 01/10/2021 Severe protein-calorie malnutrition 01/07/2019 12/26/2022 Alcohol dependence in remission 07/10/2015 11/02/2018 Pancreatitis chronic 05/26/2011 017 Acute gastritis without mention of hemorrhage 10/03/19 11 01/03/2015 Gastroesophageal reflux disease 12/26/2009 01/10/2021 documented as of this encounter (statuses as of 01/07/2024) [address]15-2021 History of Past illness Narrative* Problem Noted Date Diagnosed Date Resolved Date History of colonic polyps 01/10/2021 Abdominal bloating 01/10/2021 Severe protein-calorie malnutrition 01/07/2019 12/26/2022 Alcohol dependence in remission 07/10/2015 11/02/2018 Pancreatitis chronic 05/26/2011 017 Acute gastritis without mention of hemorrhage 10/03/19 11 01/03/2015 Gastroesophageal reflux disease 12/26/2009 01/10/2021 documented as of this encounter (statuses as of 01/13/2024) [facility] of Past illness Narrative* Problem Noted Date Diagnosed Date Resolved Date History of colonic polyps 01/10/2021 Abdominal bloating 01/10/2021 Severe protein-calorie malnutrition 01/07/2019 12/26/2022 Alcohol dependence in remission 07/10/2015 11/02/2018 Pancreatitis chronic 05/26/2011 017 Acute gastritis without mention of hemorrhage 10/03/19 11 01/03/2015 Gastroesophageal reflux disease 12/26/2009 01/10/2021 documented as of this encounter (statuses as of 01/13/2024) [facility] Note Date/Time December 12, 2024 6:2 5pm [facility] Medical Records Department [address] [place] [address] Anesthesia Postop Eval II 12/12/24 1751 MR#: [id number] Acct: [id number] Name: GRACIE BANUELOS Rep #:[id number] : 1965 59 From: Jeferson Breaux MD PCP: Dr. Misbah Elkins MD Status:ADM I N Y Race: C Location: [place] [address] 3-1 Anesthesia Postop Eval I Sum Postop Eval Completion status Anesthesia document: Postop Eval 1 completed: Yes Anesthesia Postop Eval I Summary Anesthesia Postop Eval I Summary: Anesthesia Postop Eval I: Assessment Summary Airway patent Yes 12/12/24 13:08 PATTERN CHART [email or web address] Spontaneous unlabored Yes 12/12/24 13:08 PATTERN CHART [email or web address] respirations Mental status Awake,Calm 12/12/24 13:08 PATTERN CHART [email or web address] nausea No 12/12/24 13:08 PATTERN CHART [email or web address] Vomiting No 12/12/24 13:08 PATTERN CHART [email or web address] Anesthesia Postop Eval I: Fluid Summary Crystalloid volume administer 30 12/12/24 13:08 PATTERN CHART [email or web address] (ml) Colloids volume administered ( ml) Blood Product volume administered (ml) Total IV fluid infused 30 12/12/24 13:08 PATTERN CHART [email or web address] Anesthesia Postop Eval I: Summary Notes Anesthesia Complication No 12/12/24 13:08 PATTERN [email or web address] [email or web address] Anesthesia Complication Comment: Post-operative progress note Anesthesia: Postop Eval II Evaluation Mental status: Awake and Calm Pain Level: 1 nausea: No Vomiting: No Complications Anesthesia Complication: No 12/12/24 4979 <Electronically signed by Jeferson carranza MD> Date _ Jeferson Breaux MD Cosigner Signature: Date CC: ~ Signed [facility] Work Phone: Consult note Author Uri Reyna [facility] Note Date/Time July 06, 2025 12 :10pm [facility] Medical Records Department [address] [place] [address] Anesthesia Postop Eval I 07/06/25 1159 MR#: [id number] Acct: [id number] Name: GRACIE BANUELOS Rep #:[id number] : 1965 60 From: Uri Reyna PCP: Dr. Misbah Elkins MD Status:REG S DC Y Race: C Location: [place] [address] ADDENDUM by BRAYDEN Reyna on 07/06/25 at [...] Uri Pettit Signature: Date CC: ~ Signed [facility] Work Phone: Discharge summary Author [facility] November 07, 2022 12:09pm Note Date/Time November 07, 2022 12:09pm [facility] Medical Records Department [address] [place] [address] Instructions for Home/Discharge Instructions 11/07/22 1208 MR#: [id number] Acct: [id number] Name: GRACIE BANUELOS Rep #:[id number] : 1965 57 From: Anastacia Bonilla MD [...] Coffman ; Dieter Harrison ; Ani Eduardo TOPSTITCHER ZIGZAG ; Courtney Iverson Instructions Patient Instructions: Acute [...] by Anastacia Bonilla MD>Anastacia Bonilla MD CC: TOPSTITCHER ZIGZAG-C Ani Eduardo; TOPSTITCHER ZIGZAGSierraC SOILA EASTON; Dr. Ciarra Ross MD; Dr. Freddie Perdue MD; Dr. Gonzalo Sebastian DO; Dr. Courtney Iverson MD; Dr. Olivier Coffman MD; Dr. Lisa Ochoa MD; Dr. Dieter Harrison MD ~ Signed [facility] Work Phone: Discharge summary Author Dr. 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 COPD [...] 0.5 inch RIGHT EYE Q6H antibiotic 11/01/22 [id number] 24,000-76,000-120,000 unit capsule,delayed rel (Creon) 1cap PO [...] note, patient had recently been discharged from [facility] [place], operated by [facility] after she was transferred there from [facility] for acute ophthalmology evaluation due to [...] Neut % (Auto) 59.2, Lymph % (Auto)19.9, [place] % (Auto) 13.8 H, Eos % (Auto) [...] Up: Misbah Elkins MD [Med Staff - French Tutor] - 11/11/22 4:00 pm Disposition Disposition (needs filled in before D/C Order can be placed): Home, Self Care Charges/Coding Visit Charges Inpatient E&M: 11799 Disch Hosp >30min 11/07/22 1326 <Electronically signed by Anastacia Bonilla MD> Cosigner Signature (if applicable): CC: TOPSTITCHER ZIGZAGMiriam EASTON; Dr. Anastacia Bonilla MD~ Signed [facility] Work Phone: Evaluation note* Diagnosis Essential hypertension, benign documented in this encounter [facility] note* Diagnosis MICKEY (generalized anxiety disorder) Generalized anxiety disorder Hyperlipidemia, unspecified hyperlipidemia type documented in this encounter [facility] note* Diagnosis Onset Date Resolution Status Chronic respiratory failure with hypoxia chronic Smoking greater than 30 pack years chronic Stage 3 severe COPD by GOLD classification [facility] Work Phone: Evaluation note* Diagnosis Vitamin D deficiency Unspecified vitamin D deficiency Alcohol-induced chronic pancreatitis (HCC) Chronic pancreatitis documented [facility] [place] [facility]* Diagnosis Hyperlipidemia, unspecified hyperlipidemia type MICKEY (generalized anxiety disorder) Generalized anxiety disorder documented in this encounter [facility] note* Diagnosis Essential hypertension, benign- Primary Hyperlipidemia, unspecified hyperlipidemia type Chronic fatigue Other malaise and fatigue Alcoholic hepatitis without ascites Acute alcoholic hepatitis Alcohol-induced chronic pancreatitis (HCC) Chronic pancreatitis Iron deficiency Iron deficiency anemia, unspecified Vitamin D deficiency Unspecified vitamin D deficiency MICKEY (generalized anxiety disorder) Generalized anxiety disorder Reactive depression Dysthymic disorder documented in this encounter [facility] note* Diagnosis Vitamin D deficiency Unspecified vitamin D deficiency documented in this encounter [facility] note* Diagnosis Alcohol-induced chronic pancreatitis (HCC) Chronic pancreatitis Alcoholic hepatitis without ascites Acute alcoholic hepatitis documented in this encounter [facility] note* Diagnosis Alcohol-induced chronic pancreatitis (HCC) Chronic pancreatitis Alcoholic hepatitis without ascites Acute alcoholic hepatitis [facility] [place] noteNo assessment information availableWTwin City [facility] Work Phone: Evaluation note* Diagnosis Encounter for screening mammogram for breast cancer documented in this encounter [facility] note* Diagnosis Essential hypertension, benign- Primary Multiple joint pain Pain in joint, multiple sites Alcohol-induced chronic pancreatitis (HCC) Chronic pancreatitis Chronic obstructive pulmonary disease, unspecified COPD type (HCC) Right otitis media, unspecified otitis media type Need for influenza vaccination Need for prophylactic vaccination and inoculation against influenza documented [facility] [place] [facility]* Diagnosis Chronic obstructive pulmonary disease, unspecified COPD type (HCC)- Primary documented in this encounter [facility] note* Diagnosis Onset Date Resolution Status Chronic respiratory failure with hypoxia chronic Stage 3 severe COPD by GOLD classification [facility] Work Phone: Evaluation note* Diagnosis Inflammation [...] rash on her back, neck, and extremities [facility] Diagnosis 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 [place] [facility]* Diagnosis Numbness and tingling of both lower extremities- Primary CHUY (acute kidney injury) (HCC) Acute kidney failure, unspecified Essential hypertension, benign Hyperlipidemia, unspecified hyperlipidemia type documented [facility] this [facility] [place] [facility]* Diagnosis Neuropathy- Primary Mononeuritis of unspecified site Numbness and tingling of both lower extremities Numbness and tingling of both feet Claustrophobia Other isolated or specific phobias documented in this encounter [facility] [place] [facility]* Diagnosis CHUY (acute kidney injury) (HCC)- Primary Acute kidney failure, unspecified [facility] [place] [facility]* Diagnosis Cellulitis of right orbital region- Primary Orbital cellulitis CHYU (acute kidney injury) (HCC) Acute kidney failure, unspecified Uncontrolled hypertension Unspecified essential hypertension Tobacco abuse, in remission Personal history of tobacco use, presenting hazards to health Lung mass Swelling, mass, or lump in chest documented in this encounter [facility] [place] [facility]* Diagnosis Prediabetes- Primary Other abnormal glucose [facility]* Diagnosis Thrush Candidiasis of mouth [facility]* Diagnosis Hyperlipidemia Other and unspecified hyperlipidemia documented in this [facility] [place] [facility]* Diagnosis Hyperlipidemia, unspecified hyperlipidemia type documented in this [facility] [place] [facility]* Diagnosis Arthralgia of right temporomandibular joint- Primary Arthralgia of temporomandibular joint Insomnia, unspecified type Nausea Nausea alone Alcohol use disorder, moderate, dependence (HCC) documented in this encounter [facility] [place] [facility]* Diagnosis Encounter for screening mammogram for breast cancer [facility]* Diagnosis Vitamin D deficiency Unspecified vitamin D deficiency [facility] [place] [facility]* Diagnosis Onset Date Resolution Status Asthma chronic Chronic respiratory failure with hypoxia chronic COPD (chronic obstructive pulmonary disease) chronic Smoking greater than 30 pack years [employer] [facility] Work Phone: evaluation note* Diagnosis Tachycardia- Primary Tachycardia, unspecified Alcohol-induced chronic pancreatitis (HCC) Chronic pancreatitis Hyperlipidemia, unspecified hyperlipidemia type Insomnia, unspecified type Vitamin D deficiency Unspecified vitamin D deficiency Chronic obstructive pulmonary disease, unspecified COPD type (HCC) Prediabetes Other abnormal glucose documented in this encounter [facility] [place] [facility]* Diagnosis Onset Date Resolution Status Pleurisy acute Pneumonia acute Acute on chronic hypoxic respiratory failure chronic COPD (chronic obstructive pulmonary disease) [facility] Work Phone: evaluation note* Diagnosis Essential hypertension, benign- Primary Hyponatremia Hyposmolality and/or hyponatremia Leukocytosis, unspecified type COPD with exacerbation (HCC) Obstructive chronic bronchitis with exacerbation Pneumonia due to infectious organism, unspecified laterality, unspecified part of lung documented in this encounter [facility] [place] [facility]* Diagnosis Onset Date Resolution Status Pleurisy acute COPD (chronic obstructive pulmonary disease) [facility] Work Phone: evaluation note* Diagnosis Chronic obstructive pulmonary disease, unspecified COPD type (HCC) documented in this encounter [facility] [place] [facility]* Diagnosis Nausea Nausea alone documented in this encounter [facility] note* Diagnosis Pneumonia due to infectious organism, unspecified laterality, unspecified part of lung- Primary Acute right ankle pain documented in this encounter [facility] note* Diagnosis Hyperlipidemia, unspecified hyperlipidemia type Vitamin D deficiency Unspecified vitamin D deficiency Chronic obstructive pulmonary disease, unspecified COPD type (HCC) documented in this encounter [facility] [place] [facility]* Diagnosis Chronic obstructive pulmonary disease, unspecified COPD type (HCC) documented [facility] [place] [facility]* Diagnosis Chronic obstructive pulmonary disease, unspecified COPD type (HCC) documented in this encounter [facility] [place] [facility]* Diagnosis Chronic obstructive pulmonary disease, unspecified COPD type (HCC) documented [facility] [place] [facility]* Diagnosis Encounter for screening mammogram for breast cancer [facility] Anxiety- Primary Anxiety state, unspecified Alcohol-induced chronic pancreatitis (HCC) Chronic pancreatitis Chronic obstructive pulmonary disease, unspecified COPD type (HCC) Essential hypertension Unspecified essential hypertension documented in this encounter [facility] [place] [facility]* Diagnosis Pneumonia due to infectious organism, unspecified laterality, unspecified part of lung Acute right ankle pain documented in this encounter [facility] note* Diagnosis Chronic obstructive pulmonary disease, unspecified COPD type (HCC) documented in this encounter [facility] note* Diagnosis Numbness and tingling of both lower extremities documented [facility] [place] [facility]* Diagnosis Chronic obstructive pulmonary disease, unspecified COPD type (HCC) documented in this encounter [facility] note* Diagnosis Chronic obstructive pulmonary disease, unspecified COPD type (HCC) documented in this encounter [facility] [place] [facility]* Diagnosis Anxiety- Primary Anxiety state, unspecified Alcohol-induced chronic pancreatitis (HCC) Chronic pancreatitis Nausea Nausea alone Encounter for immunization Need for other specified prophylactic vaccination against single bacterial disease Insomnia, unspecified type Leukocytosis, unspecified type documented in this encounter [facility] note* Diagnosis Shortness of breath- Primary Chronic obstructive pulmonary disease with acute exacerbation (HCC) Obstructive chronic bronchitis with exacerbation Upper abdominal pain Abdominal pain, other specified site Nausea Nausea alone Urinary incontinence, unspecified type Urinary frequency Elevated glucose Other abnormal glucose Tobacco use disorder Pulmonary emphysema, unspecified emphysema type (HCC) documented in this encounter [facility] [place] [facility]* Diagnosis Shortness of breath Chronic obstructive pulmonary disease with acute exacerbation (HCC) Obstructive chronic bronchitis with exacerbation Tobacco use disorder Pulmonary emphysema, unspecified emphysema type (HCC) documented in this encounter [facility] [place] [facility]* Diagnosis Chronic obstructive pulmonary disease, unspecified COPD type (HCC)- Primary Generalized abdominal tenderness without rebound tenderness Upper abdominal pain Abdominal pain, other specified site Elevated lipase Other nonspecific abnormal serum enzyme levels Nausea Nausea alone Alcoholic hepatitis without ascites Acute alcoholic hepatitis Alcohol use disorder, moderate, dependence (HCC) Acute pancreatitis, unspecified complication status, unspecified pancreatitis type documented in this encounter [facility] [place] [facility]* Diagnosis Chronic obstructive pulmonary disease, unspecified COPD type (HCC) documented in this [facility] [place] [facility]* Diagnosis Alcoholic hepatitis without ascites Acute alcoholic hepatitis Acute pancreatitis, unspecified complication status, unspecified pancreatitis type Upper abdominal pain Abdominal pain, other specified site Nausea Nausea alone Elevated lipase Other nonspecific abnormal serum enzyme levels Generalized abdominal tenderness without rebound tenderness documented in this [facility] [place] [facility]* Diagnosis Vitamin D deficiency Unspecified vitamin D deficiency documented [facility] [place] [facility]* Diagnosis Alcohol-induced chronic pancreatitis (HCC)- Primary Chronic pancreatitis Chronic recurrent pancreatitis (HCC) Chronic pancreatitis Chronic RUQ pain Abdominal pain, right upper quadrant Abdominal bloating Flatulence, eructation, and gas pain Nausea Nausea alone Gastroesophageal reflux disease without esophagitis Esophageal reflux documented in this encounter [facility] note* Diagnosis Cough with sputum- Primary Cough Essential hypertension Unspecified essential hypertension COPD with exacerbation (HCC) Obstructive chronic bronchitis with exacerbation COPD with exacerbation (HCC) Obstructive chronic bronchitis with exacerbation documented [facility] [place] [facility]* Diagnosis COPD with exacerbation (HCC) Obstructive chronic bronchitis with exacerbation documented [facility] [place] [facility]* Diagnosis Other chronic pancreatitis (HCC)- Primary documented in [facility] [place] [facility]* Diagnosis Chronic recurrent pancreatitis (HCC) Chronic pancreatitis Alcohol-induced chronic pancreatitis (HCC) Chronic pancreatitis Chronic RUQ pain Abdominal pain, right upper quadrant documented in this [facility] [place] [facility]* Diagnosis Hyperlipidemia Other and unspecified hyperlipidemia documented [facility] this [facility] [place] [facility]* Diagnosis Hospital discharge follow-up- Primary Other follow-up examination Chronic recurrent pancreatitis (HCC) Chronic pancreatitis Chronic obstructive pulmonary disease, unspecified COPD type (HCC) Dysphagia, unspecified type Essential hypertension, benign Tobacco use disorder Smoker Tobacco use disorder documented [facility] this [facility] [place] [facility]* Diagnosis Chronic recurrent pancreatitis (HCC) Chronic pancreatitis Chronic obstructive pulmonary disease, unspecified COPD type (HCC) Hospital discharge follow-up Other follow-up examination documented in this encounter [facility] note* Diagnosis Onset Date Resolution Status Admit Date Acute hypoxic respiratory failure acute December 04, 2024 6:03pm Chronic pancreatitis chronic Lino h 2024 6:03pm COPD with acute exacerbation chronic December 04, 2024 6:03pm [facility] Work Phone: Evaluation note* Diagnosis Chronic obstructive pulmonary disease with acute exacerbation (HCC) Obstructive chronic bronchitis with exacerbation documented [facility] this encounter [facility] [place] [facility]* Diagnosis Gout, unspecified cause, unspecified chronicity, unspecified site- Primary Calculus of pancreatic duct (HCC) Other specified disease of pancreas Chronic recurrent pancreatitis (HCC) Chronic pancreatitis Chronic obstructive pulmonary disease, unspecified COPD type (HCC) Pulmonary emphysema, unspecified emphysema type (HCC) Tobacco use disorder documented [facility] [place] [facility]* Diagnosis Nausea Nausea alone documented in this encounter [facility] note* Diagnosis Hyperlipidemia, unspecified hyperlipidemia type documented [facility] [place] [facility]* Diagnosis Other chronic pancreatitis (HCC) documented in this encounter [facility] [place] [facility]* Diagnosis Chronic recurrent pancreatitis (HCC)- Primary Chronic pancreatitis documented in this [facility] [place] [facility]* Diagnosis Hospital discharge follow-up- Primary Other follow-up examination Acute respiratory failure with hypoxia (HCC) Acute respiratory failure Chronic recurrent pancreatitis (HCC) Chronic pancreatitis Norovirus Enteritis due to [place] virus Pneumonia of both lungs due to infectious organism, unspecified part of lung Presence of pancreatic duct stent Alcoholic hepatitis without ascites (HCC) Acute alcoholic hepatitis Alcohol use disorder, moderate, dependence (HCC) documented [facility]* Diagnosis Chronic recurrent pancreatitis (HCC)- Primary Chronic pancreatitis documented in [facility] [place] [facility]* Diagnosis Subclavian arterial stenosis- Primary Stricture [...] (HCC) documented [facility] [place] [facility]* Diagnosis Chronic pancreatitis, unspecified pancreatitis type (HCC)- Primary Generalized abdominal pain Abdominal pain, generalized documented [facility] [place] [facility]* Diagnosis Encounter for screening mammogram for breast cancer documented [facility] [place] [facility]* Diagnosis Hyperlipidemia Other and unspecified hyperlipidemia [facility] [place] [facility]* Diagnosis Essential hypertension Unspecified essential hypertension [facility] [place] [facility] Diagnosis Acute pancreatitis without infection or necrosis, unspecified pancreatitis type (HCC) Chronic pancreatitis, unspecified pancreatitis type (HCC) Generalized abdominal pain Abdominal pain, generalized documented [facility] [place] [facility]* Diagnosis Subclavian artery stenosis, left- Primary Atherosclerosis of other specified arteries documented [facility] [place] [facility]* Diagnosis Chronic pancreatitis, unspecified pancreatitis type (HCC)- Primary Generalized abdominal pain Abdominal pain, generalized Chronic obstructive pulmonary disease with acute lower respiratory infection (HCC) Obstructive chronic bronchitis with exacerbation Dependence on supplemental oxygen Hearing loss of right ear, unspecified hearing loss type [facility] Diagnosis Chronic pancreatitis, unspecified pancreatitis type (HCC) Generalized abdominal pain Abdominal pain, generalized Nausea Nausea alone documented [facility] this [facility] Author Carin Meraz [facility] January 02, 2024 10:42pm Note Date/Time January 02, 2024 10:1 0pm [facility] Medical Records Department [address] [place] [address] H&P Exam - Hospitalist 01/02/24 2208 MR#: [id number] Acct: [id number] Name: GRACIE BANUELOS Rep #:[id number] : 1965 58 From: Carin Meraz MD PCP: Anat Easton, TOPSTITCHER ZIGZAG-C Status:ADM IN Location: [place] [address] HPI - General General Date of Admission: 01/02/24 Date of Service: 01/02/24 Chief Complaint: URI sxs, cough, dyspnea, worsening. HPI Narrative The patient is a 58 y/o F w/ PMHx: EtOH abuse, Tobacco use, COPD/Asthma w/ Chronic Hypoxic Respiratory Failure (PRN), HTN, HLD, Chronic anemia, Anxiety andDepression, Chronic pancreatitis associated with EtOH abuse who presents to the [facility] ED on 01/02/24 with history of onset [...] 1, Rocephin 1 g IV x 1. [facility] History Anemia Anxiety and depression Arthritis [...] DAILY BP 11/01/22 [History Last Taken Unknown] iwhjft-ftbrqriv-[id number] 24,000-76,000-120,000 unit capsule,delayed rel (Creon) 1cap PO [...] Allergy Other Verified 01/02/24 18:59 hydrocodone [From [place]] AdvReac Itching Verified 01/02/24 18:59 Family History [...] 81.7 H, Lymph % (Auto) 9.6 L, [place] % (Auto) 6.9, Eos % (Auto) 0.6, [...] with EtOH abuse who presents to the [facility] ED on 01/02/24 with history of onset [...] Patient does not have healthcare power of staff attorney or living will in place but [...] Time: 16minutes. Charges/Coding Visit Charges Inpatient E&M: 71545 Init Hosp L3 Procedures Hospitalists Procedures: 81895 Advncd Care Plan 30 Min 01/02/24 2242 <Electronically signed by Carin Meraz MD> Cosigner Signature (if applicable): CC: TOPSTITCHER ZIGZAGMiriam Coppola Older; Dr. Carin Meraz MD~ Signed [facility] Work Phone: History and physical note Author Pako Fernández [facility] Note Date/Time March 13, 2025 11:2 8pm [facility] Medical Records Department [address] [place] [address] History & Physical Exam 03/13/25 2320 MR#: [id number] Acct: [id number] Name: GRACIE BANUELOS Rep #:[id number] : 1965 59 From: Pako Fernández MD [...] several months. She was recently admitted to [facility] and treated by GI specialist Dr. Portillo. She had a surgery performed for her pancreatitis and a stent was placed this past Thursday. Patient states she has had worsening epigastric abdominal pain since discharge on Thursday. She denies fever, chills, shortness of breath, chest pain, diarrhea constipation or dysuria. Patient has been accepted to [facility] for transferfrom the emergency room, however, a bed is not available this evening and patient will be admitted temporarily in our facility while pending transfer to tertiary care facility to address pancreatic stent and acute pancreatitis. [facility] Medical History Stenosis of left subclavian [...] Allergy Other Verified 02/26/25 13:57 hydrocodone (From [place]) AdvReac Itching Verified 02/26/25 13:57 Family History [...] (Auto) 83.5 H, Lymph% (Auto) 6.3 L, Hern[place] % (Auto) 8.1, Eos % (Auto) 0.5, [...] Clarity Clear, Urine pH 7.0, Ur Specific [place] 1.005, Urine Protein 30 H, Urine Glucose [...] evidence of acute cardiopulmonary pathology. Reading Location: [id number] Assessment & Plan Assessment/Plan (1) Smoking greater than 30 pack years: (2) COPD (chronic obstructive pulmonary disease): QUALIFIERS: COPD type: emphysema Emphysema type: centrilobular Qualified Code(s): J43.2 - Centrilobular emphysema (3) Abdominal pain: (4) Chronic pancreatitis: QUALIFIERS: Pancreatitis type: alcohol induced Qualified Code(s):K86.0 - Alcohol-induced chronic pancreatitis PLAN: Plan 1. Acute on chronic pancreatitis?admit patient temporarily to our facility pending transfer to [facility], make n.p.o., IV normal saline at [...] applicable): CC: Dr. Misbah Elkisn MD; Dr. Pako Fernández MD~ Signed [facility] Work Phone: Hospital Discharge instructions* Activity:activity as tolerated. * Labs 1 (Modify Template):Lab Test(s): RFPDate To Be Drawn: 10/30/22Call Results To: Soila Easton, PROPERTY DISPOSAL OFFICER or Fax Results To: [phone]: PCP consider monitoring improvement of CHUY upon recent hospital admission * Oxygen:Administer oxygen at 2 liters/min via nasal cannula to maintain SpO2 % of 88-92 with activity. * Additional Orders:Additional Instructions: Dear Vin,You presented to us as transfer from [facility] for a possible biopsy of the [...] with Primary Care ProviderScheduled Date/Time: 15-Dec-2022 16:00Location: [address] [place] [address] [address] [address] faxPhone Number: [phone]: Please bring your insurance card, photo id, a list of medication in the original bottle, any co-pays you may have, and the discharge summary * Follow Up Appointment 2:Physician/Dept/Service: Ophthalmology: Dr Ansari Date/Time: 03-Dec-2022 15:30Location: [facility] [address] , [address] [facility] [address]Uycbt Number: [phone]: Please bring your insurance card, photo id, a list of medication in the original bottle, any co-pays you may have, and the discharge summary * Follow Up Appointment 3:Physician/Dept/Service: Soila Easton, CNPLocation: [address] [facility] [address]Dvhgs Number: [facility] Additional Instructions Take medications as prescribed. Follow-up with your doctor.[facility] Work Phone: Hospital Discharge instructions Additional Instructions Follow-up with pain management on January 05 as scheduled. Quit smoking. Return with fever, increased pain, new or worsening symptoms.[facility] Work Phone: Hospital Discharge instructions Additional Instructions Your blood work and CT are normal but I this is a flareup of your chronic pancreatitis. I prescribed more Zofran. Use tramadol as needed for breakthrough pain. Follow-up with your GI specialist.[facility] Work Phone: Hospital Discharge instructionsAdditional Instructions [...] if your symptoms worsen or new symptoms develop.[facility] Work Phone: Hospital Discharge instructionsAdditional Instructions discussed with your PCP if they will bridge your pain medicines oxycodone. You are on tramadol. Take the medications prescribed by pain management. Follow-up with them.[facility] Work Phone: [facility] Diagnostic Procedure Only (Routine) - Authorized Specialty Diagnoses / Procedures Referred By Contac t Referred To Contact US IMAGING Diagnoses Alcohol-induced chronic pancreatitis (HCC) Alcoholic hepatitis without ascites Procedures US ABD RT UPPER QUADRANT US ABDOMINAL REAL TIME W/IMAGE LIMITED Soila Easton APRN.PROPERTY DISPOSAL OFFICER [address] [place] [id number] [facility] Imaging Referral ID Status Reason Start Date Expiration Date Visits Requested Visits Authorized [id number] Authorized Auto-Generat ed Referral 04/17/2022 05/17/2023 1 1 * Consult, Test, Treat (Routine) - Authorized Specialty Diagnoses / Procedures Referred By Contac t Referred To Contact Gastroenterology Diagnoses Alcohol-induced chronic pancreatitis (HCC) Alcoholic hepatitis without ascites Procedures CONSULT TO GASTROENTEROLOGY OFFICE/OUTPATIENT [facility] MDM 60-74 MINUTES Soila Easton APRN.PROPERTY DISPOSAL OFFICER [address] [place] [address] Referral ID Status Reason Start Date Expiration Date Visits Requested Visits Authorized [id number] Authorized PCP Requested Referral 04/17/2022 04/17/2023 1 1 [facility] for referral (narrative)* Diagnostic Procedure Only (Routine) - Closed Specialty Diagnoses / Procedures Referred By Contac t Referred To Contact US IMAGING Diagnoses Alcohol-induced chronic pancreatitis (HCC) Alcoholic hepatitis without ascites Procedures US ABD RT UPPER QUADRANT US ABDOMINAL REAL TIME W/IMAGE LIMITED Soila Easton APRN.PROPERTY DISPOSAL OFFICER [address] [place] [address] Us Imaging Referral ID Status Reason Start Date Expiration Date V isits Requested Visits Authorized [id number] Closed Auto-Generate d Referral 04/17/2022 05/17/2023 1 1 [facility] for referral (narrative)* Diagnostic Procedure Only (Routine) - Pending Review Specialty Diagnoses / Procedures Referred By Travis melendez Referred To Contact BR IMAGING Diagnoses Encounter for screening mammogram for breast cancer Procedures SIMI SCREENING SCREENING MAMMOGRAPHY BI 2-[place] [address] [place] [address] [facility] [address] [place] [phone] Referral ID Status Reason Start Date Expiration Date Visits Requested Visits Authorized [id number] Pending Review Auto-Generat ed Referral 06/25/2022 07/25/2023 1 1 [facility] for referral (narrative)* Outpatient Procedure (Routine) - Authorized Specialty Diagnoses / Procedures Referred By Travis melendez Referred To Contact [facility] Diagnoses Numbness and tingling of both lower extremities Neuropathy Numbness and tingling of both feet Procedures EMG(NEURO/NI) NERVE CONDUCTION STUDIES 9-10 STUDIES Mariluz Verduzco PA-C [address] [place] [address] [facility] [address] [place] [address] Referral ID Status Reason Start Date Expiration Date Visits Requested Visits Authorized [id number] Authorized Auto-Generat ed Referral 11/26/2022 09/27/2023 1 1 [facility] for referral (narrative)* Diagnostic Procedure Only (Routine) - Pending Review Specialty Diagnoses / Procedures Referred By Travis t Referred To Contact BR IMAGING Diagnoses Encounter for screening mammogram for breast cancer Procedures SIMI SCREENING SCREENING MAMMOGRAPHY BI 2-VIEW BREAST INC Misbah Chanel MD [address] [place] [address] [facility] [address] [place] [address] Referral ID Status Reason Start Date Expiration Date Visits Requested Visits Authorized [id number] Pending Review Auto-Generat ed Referral 06/03/2023 07/02/2024 1 1 [facility] for referral (narrative)* Diagnostic Procedure Only (Routine) - New Request Specialty Diagnoses / Procedures Referred By Travis melendez Referred To Contact BR IMAGING Diagnoses Encounter for screening mammogram for breast cancer Procedures SIMI SCREENING W CYNTHIA SCREENING DIGITAL BREAST TOMOSYNTHESIS BI SCREENING MAMMOGRAPHY BI 2-VIEW BREAST INC CAD Misbah Elkins MD [address] [place] [address] [facility] [address] [facility] [place] [address] Referral ID Status Reason Start Date Expiration Date Visits Requested Visits Authorized [id number] New Request Auto-Generat ed Referral 05/04/2024 06/03/2025 1 1 [facility] for referral (narrative)* Diagnostic Procedure Only (Routine) - Closed Specialty Diagnoses / Procedures Referred By Travis melendez Referred To Contact XR IMAGING Diagnoses Numbness and tingling of both lower extremities Procedures XR LUMBAR GENERAL 3V AP/LAT/L5-S1 RADEX SPINE LUMBOSACRAL 2/3 VIEWS Misbah Elkins MD [address] [place] [address] [place] [address] Referral ID Status Reason Start Date Expiration Date V isits Requested Visits Authorized [id number] Closed Auto-Generate d Referral 11/25/2022 12/25/2023 1 1 [facility] for referral (narrative)* Diagnostic Procedure Only (Routine) - Authorized Specialty Diagnoses / Procedures Referred By Travis melendez Referred To Contact US IMAGING Diagnoses Upper abdominal pain Nausea Procedures US ABD RIGHT UPPER QUADRANT US ABDOMINAL REAL TIME W/IMAGE LIMITED Soila Easton APRN.PROPERTY DISPOSAL OFFICER [address] [place] [address] [place] [address] Referral ID Status Reason Start Date Expiration Date Visits Requested Visits Authorized [id number] Authorized Auto-Generat ed Referral 09/09/20[address] Outpatient Procedure (Routine) - New Request Specialty Diagnoses / Procedures Referred By Contac t Referred To Contact [facility] Diagnoses Chronic recurrent pancreatitis (HCC) Alcohol-induced chronic pancreatitis (HCC) Chronic RUQ pain Procedures EGD - THERAPEUTIC, EUS, OR TUBE INTERVENTIONS EGD TRANSORAL BIOPSY SINGLE/MULTIPLE Juan Senior APRN.CNP [address] [place] [address] [facility] [address] [place] [id number] Referral ID Status Reason Start Date Expiration Date Visits Requested Visits Authorized [id number] New Request Auto-Generat ed Referral 11/02/2024 11/02/2025 1 1 * Consult, Test, Treat (Routine) - Pending Review Specialty Diagnoses / Procedures Referred By Contac t Referred To Contact [facility] Diagnoses Chronic recurrent pancreatitis (HCC) Alcohol-induced chronic pancreatitis (HCC) Chronic RUQ pain Procedures CONSULT TO [facility] ([facility]) OFFICE/OUTPATIENT NEW HIGH MDM 60 MINUTES Juan Senior APRN.PROPERTY DISPOSAL OFFICER [address] [place] [id number] Referral ID Status Reason Start Date Expiration Date Visits Requested Visits Authorized [id number] Pending Review PCP Requested Referral 11/02/2024 01/31/2025 [address] (narrative)No reason for referral information availableWTwin City Hospital Work Phone: Reason for visit Narrative* Diagnostic Procedure Only (Routine) - Closed Specialty Diagnoses / Procedures Referred By Contac t Referred To Contact XR IMAGING Diagnoses Numbness and tingling of both lower extremities Procedures XR LUMBAR GENERAL 3V AP/LAT/L5-S1 RADEX SPINE LUMBOSACRAL 2/3 VIEWS Misbah Elkins MD [address] [place] [address] Xr Imaging [facility] Referral ID Status Reason Start Date Expiration Date V isits Requested Visits Authorized [id number] Closed Auto-Generate d Referral 11/25/2022 12/25/2023 1 1 [facility] for visit Narrative* Outpatient Procedure (Routine) - Closed Specialty Diagnoses / Procedures Referred By Contac t Referred To Contact [facility] Diagnoses Chronic recurrent pancreatitis (HCC) Alcohol-induced chronic pancreatitis (HCC) Chronic RUQ pain Procedures EGD - THERAPEUTIC, EUS, OR TUBE INTERVENTIONS EGD TRANSORAL BIOPSY SINGLE/MULTIPLE Juan Senior APRN.PROPERTY DISPOSAL OFFICER [address] [place] [address] Phone: tel: fax: [facility] [address] [place], [place] [phone] Referral ID Status Reason Start Date Expiration Date V isits Requested Visits Authorized [id number] Closed Auto-Generate d Referral 11/02/2024 11/02/2025 1 1 [facility] for visit Narrative* Outpatient Procedure (Routine) - Closed Specialty Diagnoses / Procedures Referred By Contac t Referred To Contact [facility] Diagnoses Other chronic pancreatitis (HCC) Procedures ERCP ERCP DX COLLECTION SPECIMEN BRUSHING/WASHING Jane Farrell MD [address] [address] Phone: tel: fax: [facility] [address] [place] [address] Referral ID Status Reason Start Date Expiration Date V isits Requested Visits Authorized [id number] Closed Auto-Generate d Referral 12/06/2024 09/27/2025 [address] [facility] Summary Purpose Family History No Family [...] FoundDocuments on File Type Date Recorded Patient Lab Animal Technician Expl anation Advance Directive(s) 03/16/2025 3:08 PM Date Activated Date Inactivated Comments 03/15/2025 11:09 PM Question Answer Comments Full Code Order Discussed With: Discussion Not M edically Appropriate Documents on File Type Date Recorded Patient Lab Animal Technician Expl anation Advance Directive(s) 01/10/2021 8:39 AM Advance Directive(s) 12/28/2020 10:28 AM Advance Directive(s) 12/05/2019 6:41 AM Advance Directive Response Recorded Date/ Time Advance Directives No October 11:35am Living Will No March 03, 2022 1 2:49pm Power of Eyeglass Frame Truer No March 03, 2022 12:49pm Documents on File Type Date Recorded Patient Lab Animal Technician Expl anation Advance Directive(s) 01/10/2021 8:39 AM Advance Directive(s) 12/28/2020 10:28 AM Advance Directive(s) 12/05/2019 6:41 AM Advance Directive Response Recorded Date/ Time Advance Directives No October 10:35am Living Will No October 19 7:08pm Power of Eyeglass Frame Truer No October 19, 2022 7:08pm Latest Code [...] Will No November 01 11:45pm Power of Eyeglass Frame Truer No November 01, 2022 11:45pm Advance Directive Response Recorded Date/ Time Advance Directives No October 11:35am Living Will No June 02, 2 023 3:53pm Power of Eyeglass Frame Truer No June 02, 2023 3:53pm Advance Directive Response Recorded Date/ Time Advance Directives No October 11:35am Living Will No July 08 6:10pm Power of Eyeglass Frame Truer No July 08, 2023 6:10pm Advance Directive Response Recorded Date/ Time Advance Directives No October 11:35am Living Will No January 02, 2024 7:23pm Power of Eyeglass Frame Truer No January 01 7:23pm Advance Directive Response Recorded Date/ Time Advance Directives No October 11:35am Living Will No January 02, 2024 11:15pm Power of Eyeglass Frame Truer No January 01 11:15pm Advance Directive Response Recorded Date/ Time Advance Directives No October 11:35am Living Will No January 19, 2024 11:39pm Power of Eyeglass Frame Truer No January 18 11:39pm Advance Directive Response Recorded Date/ Time Living Will No December 04, 2024 4:02pm Power of Eyeglass Frame Truer No December 04 4:02pm Advance Directives No October 11:35am Advance Directive Response Recorded Date/ Time Living Will No December 04, 2024 8:21pm Power of Eyeglass Frame Truer No December 04 8:21pm Advance Directives No October 11:35am Advance Directive Response Recorded Date/ Time Living Will No December 04, 2024 8:21pm Do you have a Healthcare Power of Eyeglass Frame Truer? No December 04, 2024 8:21pm Living Will No December 24, 2024 8:13pm Do you have a Healthcare Power of Eyeglass Frame Truer? No December 24, 2024 8:13pm Advance Directives No October 11:35am Advance Directive Response Recorded Date/ Time Living Will No December 04, 2024 8:21pm Do you have a Healthcare Power of Eyeglass Frame Truer? No December 04, 2024 8:21pm Living Will No December 24, 2024 8:13pm Do you have a Healthcare Power of Eyeglass Frame Truer? No December 24, 2024 8:13pm Living Will No January 01, 2025 8:27pm Do you have a Healthcare Power of Eyeglass Frame Truer? No January 01, 2025 8:27pm Advance Directives No October 11:35am Advance Directive Response Recorded Date/ Time Living Will No January 19, 2024 11:39pm Do you have a Healthcare Power of Eyeglass Frame Truer? No January 19, 2024 11:39pm Living Will No December 04, 2024 8:21pm Do you have a Healthcare Power of Eyeglass Frame Truer? No December 04, 2024 8:21pm Living Will No December 24, 2024 8:13pm Do you have a Healthcare Power of Eyeglass Frame Truer? No December 24, 2024 8:13pm Living Will No January 01, 2025 8:27pm Do you have a Healthcare Power of Eyeglass Frame Truer? No January 01, 2025 8:27pm Do you have a Healthcare Power of Eyeglass Frame Truer? Yes January 27, 2025 10:20am Name of Medical Power of Eyeglass Frame Truer sister January 27, 2025 10:20am Advance Directives No October 11:35am Advance Directive Response Recorded Date/ Time Living Will No January 19, 2024 11:39pm Do you have a Healthcare Power of Eyeglass Frame Truer? No January 19, 2024 11:39pm Living Will No December 04, 2024 8:21pm Do you have a Healthcare Power of Eyeglass Frame Truer? No December 04, 2024 8:21pm Living Will No December 24, 2024 8:13pm Do you have a Healthcare Power of Eyeglass Frame Truer? No December 24, 2024 8:13pm Living Will No January 01, 2025 8:27pm Do you have a Healthcare Power of Eyeglass Frame Truer? No January 01, 2025 8:27pm Do you have a Healthcare Power of Eyeglass Frame Truer? Yes January 27, 2025 10:20am Name of Medical Power of Eyeglass Frame Truer sister January 27, 2025 10:20am Do you have a Healthcare Power of Eyeglass Frame Truer? No February 26, 2025 2:12pm Advance Directives No October 11:35am Advance Directive Response Recorded Date/ Time Living Will No January 19, 2024 11:39pm Do you have a Healthcare Power of Eyeglass Frame Truer? No January 19, 2024 11:39pm Living Will No December 04, 2024 8:21pm Do you have a Healthcare Power of Eyeglass Frame Truer? No December 04, 2024 8:21pm Living Will No December 24, 2024 8:13pm Do you have a Healthcare Power of Eyeglass Frame Truer? No December 24, 2024 8:13pm Living Will No January 01, 2025 8:27pm Do you have a Healthcare Power of Eyeglass Frame Truer? No January 01, 2025 8:27pm Do you have a Healthcare Power of Eyeglass Frame Truer? Yes January 27, 2025 10:20am Name of Medical Power of Eyeglass Frame Truer sister January 27, 2025 10:20am Do you have a Healthcare Power of Eyeglass Frame Truer? No March 13, 2025 12:02pm Do you have a Healthcare Power of Eyeglass Frame Truer? No February 26, 2025 2:12pm Advance Directives No October 11:35am Advance Directive Response Recorded Date/ Time Living Will No January 19, 2024 11:39pm Do you have a Healthcare Power of Eyeglass Frame Truer? No January 19, 2024 11:39pm Living Will No December 04, 2024 8:21pm Do you have a Healthcare Power of Eyeglass Frame Truer? No December 04, 2024 8:21pm Living Will No December 24, 2024 8:13pm Do you have a Healthcare Power of Eyeglass Frame Truer? No December 24, 2024 8:13pm Living Will No January 01, 2025 8:27pm Do you have a Healthcare Power of Eyeglass Frame Truer? No January 01, 2025 8:27pm Do you have a Healthcare Power of Eyeglass Frame Truer? Yes January 27, 2025 10:20am Name of Medical Power of Eyeglass Frame Truer sister January 27, 2025 10:20am Do you have a Healthcare Power of Eyeglass Frame Truer? No March 14, 2025 1:26am Do you have a Healthcare Power of Eyeglass Frame Truer? 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 No January 19, 2024 11:39pm Living Will No December 24, 2024 8:13pm Do you have a Healthcare Power of Eyeglass Frame Truer? No December 24, 2024 8:13pm Living Will No January 01, 2025 8:27pm Do you have a Healthcare Power of Eyeglass Frame Truer? No January 01, 2025 8:27pm Do you have a Healthcare Power of [employer]eg[employer]? Yes January 27, 2025 10:20am Name of Medical Power of [employer] sister January 27, 2025 10:20am Do you have a Healthcare Power of [employer]? No March 14, 2025 1:26am Do you have a Healthcare Power of [employer]? No April 15, 2025 10:57pm Do you have a Healthcare Power of [employer]? No February 26, 2025 2:12pm Advance Directives No October 11:35am Advance Directive Response Recorded Date/ Time Living Will No January 19, 2024 11:39pm Do you have a Healthcare Power of [employer]er? No January 19, 2024 11:39pm Living Will No December 24, 2024 8:13pm Do you have a Healthcare Power of [employer]? No December 24, 2024 8:13pm Living Will No January 01, 2025 8:27pm Do you have a Healthcare Power of [employer]er? No January 01, 2025 8:27pm Do you have a Healthcare Power of [employer]er? Yes January 27, 2025 10:20am Name of Medical Power of [employer] sister January 27, 2025 10:20am Do you have a Healthcare Power of [employer]er? No March 14, 2025 1:26am Do you have a Healthcare Power of [employer]er? Yes April 16, 2025 2:36am Do you have a Healthcare Power of [employer]er? No February 26, 2025 2:12pm Advance Directives No October 11:35am Advance Directive Response Recorded Date/ Time Living Will No January 19, 2024 11:39pm Do you have a Healthcare Power of [employer]er? No January 19, 2024 11:39pm Living Will No January 01, 2025 8:27pm Do you have a Healthcare Power of [employer]er? No January 01, 2025 8:27pm Do you have a Healthcare Power of [employer]er? Yes January 27, 2025 10:20am Name of Medical Power of [employer] sister January 27, 2025 10:20am Do you have a Healthcare Power of [employer]er? No March 14, 2025 1:26am Do you have a Healthcare Power of [employer]er? Yes April 16, 2025 2:36am Do you have a Healthcare Power of [employer]er? No February 26, 2025 2:12pm Advance Directives No October 11:35am Advance Directive Response Recorded Date/ Time Living Will No January 19, 2024 11:39pm Do you have a Healthcare Power of [employer]er? No January 19, 2024 11:39pm Do you have a Healthcare Power of [employer]er? Yes January 27, 2025 10:20am Name of Medical Power of [employer] sister January 27, 2025 10:20am Do you have a Healthcare Power of [employer]er? No March 14, 2025 1:26am Do you have a Healthcare Power of [employer]er? Yes April 16, 2025 2:36am Do you have a Healthcare Power of [employer]er? No February 26, 2025 2:12pm Advance Directives No October 11:35am Advance Directive Response Recorded Date/ Time Living Will No January 19, 2024 11:39pm Do you have a Healthcare Power of [employer]er? No January 19, 2024 11:39pm Do you have a Healthcare Power of [employer]er? Yes January 27, 2025 10:20am Name of Medical Power of [employer] sister January 27, 2025 10:20am Do you have a Healthcare Power of [employer]er? No March 14, 2025 1:26am Do you have a Healthcare Power of [employer]er? Yes April 16, 2025 2:36am Do you have a Healthcare Power of [employer]er? No May 10, 2025 9:31pm Do you have a Healthcare Power of [employer]er? No February 26, 2025 2:12pm Advance Directives No October 11:35am Advance Directive Response Recorded Date/ Time Living Will No January 19, 2024 11:39pm Do you have a Healthcare Power of [employer]eg[employer]er? No January 19, 2024 11:39pm Do you have a Healthcare Power of [employer]er? Yes January 27, 2025 10:20am Name of Medical Power of [employer] sister January 27, 2025 10:20am Do you have a Healthcare Power of [employer]er? No March 14, 2025 1:26am Do you have a Healthcare Power of [employer]er? Yes April 16, 2025 2:36am Do you have a Healthcare Power of [employer]er? No May 10, 2025 9:31pm Do you have a Healthcare Power of [employer]er? No February 26, 2025 2:12pm Do you have a Healthcare Power of [employer]er? Yes May 24, 2025 7:49pm Advance Directives No October 11:35am Advance Directive Response Recorded Date/ Time Living Will No January 19, 2024 11:39pm Do you have a Healthcare Power of [employer]er? No January 19, 2024 11:39pm Do you have a Healthcare Power of [employer]er? No March 14, 2025 1:26am Do you have a Healthcare Power of [employer]er? Yes April 16, 2025 2:36am Do you have a Healthcare Power of [employer]er? No May 10, 2025 9:31pm Do you have a Healthcare Power of [employer]er? No February 26, 2025 2:12pm Do you have a Healthcare Power of [employer]er? Yes May 24, 2025 7:49pm Advance Directives No October 11:35am Advance Directive Response Recorded Date/ Time Do you have a Healthcare Power of [employer]er? No March 14, 2025 1:26am Do you have a Healthcare Power of [employer]er? Yes April 16, 2025 2:36am Do you have a Healthcare Power of [employer]er? No May 10, 2025 9:31pm Do you have a Healthcare Power of [employer]er? Yes July 10, 2025 6:58am Do you have a Healthcare Power of [employer]er? No July 04, 2025 9:29am Do you have a Healthcare Power of [employer]er? Yes May 24, 2025 7:49pm Do you have a Healthcare Power of [employer]er? No July 06, 2025 8:23pm Advance Directives [...] 2024 7:08pm PANCREATITIS, COMPLICATION WITH STENT Ju wi 2024 7:31am follow up April 10, 2025 [...] lower extremities Procedures CONSULT TO NEUROLOGY OFFICE/OUTPATIENT [facility] 60-74 MINUTES Misbah Elkins MD [address] [place] [address] Referral ID Status Reason Start Date Expiration Date Visits Requested Visits Authorized [id number] Authorized PCP Requested Referral 11/25/2022 11/25/2023 1 1 Specialty Diagnoses / Procedures Referred By Contac t Referred To Contact XR IMAGING Diagnoses Numbness and tingling of both lower extremities Procedures XR LUMBAR GENERAL 3V AP/LAT/L5-S1 RADEX SPINE LUMBOSACRAL 2/3 VIEWS Misbah Elkins MD [address] [place] [address] Xr Imaging Referral ID Status Reason Start Date Expiration Date V isits Requested Visits Authorized [id number] Closed Auto-Generate d Referral 11/25/2022 12/25/2023 1 1 Specialty Diagnoses / Procedures Referred By Contac t Referred To Contact CT IMAGING Diagnoses Alcoholic hepatitis without ascites Acute pancreatitis, unspecified complication status, unspecified pancreatitis type Upper abdominal pain Nausea Elevated lipase Generalized abdominal tenderness without rebound tenderness Procedures CT ABD/PEL W IVCON CT ABD & PELVIS W/CONTRAST Soila Easton APRN.[employer]ICER [address] [place] [address] [place] [address] Referral ID Status Reason Start Date Expiration Date Visits Requested Visits Authorized [id number] Pending Review Auto-Generat ed Referral 09/14/2025 1 1 Additional Source Comments INFORMATION SOURCE (unrecogn ized section and content) DATE CREATED AUTHOR 03/24/2018 [facility] ([place]) DATE CREATED AUTHOR AUTHOR'S ORGANIZ ATION 12/05/2019 [facility] DATE CREATED AUTHOR AUTHOR'S ORGANIZ ATION 12/07/2019 [facility] DATE CREATED AUTHOR AUTHOR'S ORGANIZ ATION 11/07/2022 [facility] DATE CREATED AUTHOR AUTHOR'S ORGANIZ ATION 12/27/2022 [facility] DATE CREATED AUTHOR AUTHOR'S ORGANIZ ATION 06/12/2023 [facility] DATE CREATED AUTHOR AUTHOR'S ORGANIZ ATION 04/21/2025 [facility] DATE CREATED AUTHOR AUTHOR'S ORGANIZ ATION 07/06/2025 [facility] DATE CREATED AUTHOR AUTHOR'S ORGANIZ ATION 07/12/2025 [facility] Source Comments (unrecognize d section and content) In the event this informatio n is protected by the Federal Confidentiality of Alcohol and Drug Abuse Patient Records regulations: The Federal rules restrict any use of the information to criminally investigate or prosecute any alcohol or drug abuse patient.[facility] Hospital[facility] the event this information is protected by the Federal Confidentiality of Alcohol and Drug Abuse Patient Records regulations: The Federal rules restrict any use of the information to criminally investigate or prosecute any alcohol or drug abuse patient.[facility] HospitalIn the event this information is protected by the Federal Confidentiality of Alcohol and Drug Abuse Patient Records regulations: The Federal rules restrict any use of the information to criminally investigate or prosecute any alcohol or drug abuse patient.[facility] HospitalIn the event this information is protected by the Federal Confidentiality of Alcohol and Drug Abuse Patient Records regulations: The Federal rules restrict any use of the information to criminally investigate or prosecute any alcohol or drug abuse patient.[facility] HospitalIn the event this information is protected by the Federal Confidentiality of Alcohol and Drug Abuse Patient Records regulations: The Federal rules restrict any use of the information to criminally investigate or prosecute any alcohol or drug abuse patient.[facility] HospitalIn the event this information is protected by the Federal Confidentiality of Alcohol and Drug Abuse Patient Records regulations: The Federal rules restrict any use of the information to criminally investigate or prosecute any alcohol or drug abuse patient.[facility] HospitalIn the event this information is protected by the Federal Confidentiality of Alcohol and Drug Abuse Patient Records regulations: The Federal rules restrict any use of the information to criminally investigate or prosecute any alcohol or drug abuse patient.[facility] HospitalIn the event this information is protected by the Federal Confidentiality of Alcohol and Drug Abuse Patient Records regulations: The Federal rules restrict any use of the information to criminally investigate or prosecute any alcohol or drug abuse patient.[facility] HospitalIn the event this information is protected by the Federal Confidentiality of Alcohol and Drug Abuse Patient Records regulations: The Federal rules restrict any use of the information to criminally investigate or prosecute any alcohol or drug abuse patient.[facility] HospitalIn the event this information is protected by the Federal Confidentiality of Alcohol and Drug Abuse Patient Records regulations: The Federal rules restrict any use of the information to criminally investigate or prosecute any alcohol or drug abuse patient.[facility] HospitalIn the event this information is protected by the Federal Confidentiality of Alcohol and Drug Abuse Patient Records regulations: The Federal rules restrict any use of the information to criminally investigate or prosecute any alcohol or drug abuse patient.[facility] HospitalIn the event this information is protected by the Federal Confidentiality of Alcohol and Drug Abuse Patient Records regulations: The Federal rules restrict any use of the information to criminally investigate or prosecute any alcohol or drug abuse patient.[facility] HospitalIn the event this information is protected by the Federal Confidentiality of Alcohol and Drug Abuse Patient Records regulations: The Federal rules restrict any use of the information to criminally investigate or prosecute any alcohol or drug abuse patient.[facility] HospitalIn the event this information is protected by the Federal Confidentiality of Alcohol and Drug Abuse Patient Records regulations: The Federal rules restrict any use of the information to criminally investigate or prosecute any alcohol or drug abuse patient.[facility] HospitalIn the event this information is protected by the Federal Confidentiality of Alcohol and Drug Abuse Patient Records regulations: The Federal rules restrict any use of the information to criminally investigate or prosecute any alcohol or drug abuse patient.[facility] HospitalIn the event this information is protected by the Federal Confidentiality of Alcohol and Drug Abuse Patient Records regulations: The Federal rules restrict any use of the information to criminally investigate or prosecute any alcohol or drug abuse patient.[facility] HospitalIn the event this information is protected by the Federal Confidentiality of Alcohol and Drug Abuse Patient Records regulations: The Federal rules restrict any use of the information to criminally investigate or prosecute any alcohol or drug abuse patient.[facility] HospitalIn the event this information is protected by the Federal Confidentiality of Alcohol and Drug Abuse Patient Records regulations: The Federal rules restrict any use of the information to criminally investigate or prosecute any alcohol or drug abuse patient.[facility] HospitalIn the event this information is protected by the Federal Confidentiality of Alcohol and Drug Abuse Patient Records regulations: The Federal rules restrict any use of the information to criminally investigate or prosecute any alcohol or drug abuse patient.[facility] HospitalIn the event this information is protected by the Federal Confidentiality of Alcohol and Drug Abuse Patient Records regulations: The Federal rules restrict any use of the information to criminally investigate or prosecute any alcohol or drug abuse patient.[facility] HospitalIn the event this information is protected by the Federal Confidentiality of Alcohol and Drug Abuse Patient Records regulations: The Federal rules restrict any use of the information to criminally investigate or prosecute any alcohol or drug abuse patient.[facility] HospitalIn the event this information is protected by the Federal Confidentiality of Alcohol and Drug Abuse Patient Records regulations: The Federal rules restrict any use of the information to criminally investigate or prosecute any alcohol or drug abuse patient.[facility] HospitalIn the event this information is protected by the Federal Confidentiality of Alcohol and Drug Abuse Patient Records regulations: The Federal rules restrict any use of the information to criminally investigate or prosecute any alcohol or drug abuse patient.[facility] HospitalIn the event this information is protected by the Federal Confidentiality of Alcohol and Drug Abuse Patient Records regulations: The Federal rules restrict any use of the information to criminally investigate or prosecute any alcohol or drug abuse patient.[facility] HospitalIn the event this information is protected by the Federal Confidentiality of Alcohol and Drug Abuse Patient Records regulations: The Federal rules restrict any use of the information to criminally investigate or prosecute any alcohol or drug abuse patient.[facility] HospitalIn the event this information is protected by the Federal Confidentiality of Alcohol and Drug Abuse Patient Records regulations: The Federal rules restrict any use of the information to criminally investigate or prosecute any alcohol or drug abuse patient.[facility] HospitalIn the event this information is protected by the Federal Confidentiality of Alcohol and Drug Abuse Patient Records regulations: The Federal rules restrict any use of the information to criminally investigate or prosecute any alcohol or drug abuse patient.[facility] HospitalIn the event this information is protected by the Federal Confidentiality of Alcohol and Drug Abuse Patient Records regulations: The Federal rules restrict any use of the information to criminally investigate or prosecute any alcohol or drug abuse patient.[facility] HospitalIn the event this information is protected by the Federal Confidentiality of Alcohol and Drug Abuse Patient Records regulations: The Federal rules restrict any use of the information to criminally investigate or prosecute any alcohol or drug abuse patient.[facility] HospitalIn the event this information is protected by the Federal Confidentiality of Alcohol and Drug Abuse Patient Records regulations: The Federal rules restrict any use of the information to criminally investigate or prosecute any alcohol or drug abuse patient.[facility] HospitalIn the event this information is protected by the Federal Confidentiality of Alcohol and Drug Abuse Patient Records regulations: The Federal rules restrict any use of the information to criminally investigate or prosecute any alcohol or drug abuse patient.[facility] HospitalIn the event this information is protected by the Federal Confidentiality of Alcohol and Drug Abuse Patient Records regulations: The Federal rules restrict any use of the information to criminally investigate or prosecute any alcohol or drug abuse patient.[facility] HospitalIn the event this information is protected by the Federal Confidentiality of Alcohol and Drug Abuse Patient Records regulations: The Federal rules restrict any use of the information to criminally investigate or prosecute any alcohol or drug abuse patient.[facility] HospitalIn the event this information is protected by the Federal Confidentiality of Alcohol and Drug Abuse Patient Records regulations: The Federal rules restrict any use of the information to criminally investigate or prosecute any alcohol or drug abuse patient.[facility] HospitalIn the event this information is protected by the Federal Confidentiality of Alcohol and Drug Abuse Patient Records regulations: The Federal rules restrict any use of the information to criminally investigate or prosecute any alcohol or drug abuse patient.[facility] HospitalIn the event this information is protected by the Federal Confidentiality of Alcohol and Drug Abuse Patient Records regulations: The Federal rules restrict any use of the information to criminally investigate or prosecute any alcohol or drug abuse patient.[facility] HospitalIn the event this information is protected by the Federal Confidentiality of Alcohol and Drug Abuse Patient Records regulations: The Federal rules restrict any use of the information to criminally investigate or prosecute any alcohol or drug abuse patient.[facility] HospitalIn the event this information is protected by the Federal Confidentiality of Alcohol and Drug Abuse Patient Records regulations: The Federal rules restrict any use of the information to criminally investigate or prosecute any alcohol or drug abuse patient.[facility] HospitalIn the event this information is protected by the Federal Confidentiality of Alcohol and Drug Abuse Patient Records regulations: The Federal rules restrict any use of the information to criminally investigate or prosecute any alcohol or drug abuse patient.[facility] HospitalIn the event this information is protected by the Federal Confidentiality of Alcohol and Drug Abuse Patient Records regulations: The Federal rules restrict any use of the information to criminally investigate or prosecute any alcohol or drug abuse patient.[facility] HospitalIn the event this information is protected by the Federal Confidentiality of Alcohol and Drug Abuse Patient Records regulations: The Federal rules restrict any use of the information to criminally investigate or prosecute any alcohol or drug abuse patient.[facility] HospitalIn the event this information is protected by the Federal Confidentiality of Alcohol and Drug Abuse Patient Records regulations: The Federal rules restrict any use of the information to criminally investigate or prosecute any alcohol or drug abuse patient.[facility] HospitalIn the event this information is protected by the Federal Confidentiality of Alcohol and Drug Abuse Patient Records regulations: The Federal rules restrict any use of the information to criminally investigate or prosecute any alcohol or drug abuse patient.[facility] HospitalIn the event this information is protected by the Federal Confidentiality of Alcohol and Drug Abuse Patient Records regulations: The Federal rules restrict any use of the information to criminally investigate or prosecute any alcohol or drug abuse patient.[facility] HospitalIn the event this information is protected by the Federal Confidentiality of Alcohol and Drug Abuse Patient Records regulations: The Federal rules restrict any use of the information to criminally investigate or prosecute any alcohol or drug abuse patient.[facility] HospitalIn the event this information is protected by the Federal Confidentiality of Alcohol and Drug Abuse Patient Records regulations: The Federal rules restrict any use of the information to criminally investigate or prosecute any alcohol or drug abuse patient.[facility] HospitalIn the event this information is protected by the Federal Confidentiality of Alcohol and Drug Abuse Patient Records regulations: The Federal rules restrict any use of the information to criminally investigate or prosecute any alcohol or drug abuse patient.[facility] HospitalIn the event this information is protected by the Federal Confidentiality of Alcohol and Drug Abuse Patient Records regulations: The Federal rules restrict any use of the information to criminally investigate or prosecute any alcohol or drug abuse patient.[facility] HospitalIn the event this information is protected by the Federal Confidentiality of Alcohol and Drug Abuse Patient Records regulations: The Federal rules restrict any use of the information to criminally investigate or prosecute any alcohol or drug abuse patient.[facility] HospitalIn the event this information is protected by the Federal Confidentiality of Alcohol and Drug Abuse Patient Records regulations: The Federal rules restrict any use of the information to criminally investigate or prosecute any alcohol or drug abuse patient.[facility] HospitalIn the event this information is protected by the Federal Confidentiality of Alcohol and Drug Abuse Patient Records regulations: The Federal rules restrict any use of the information to criminally investigate or prosecute any alcohol or drug abuse patient.[facility] HospitalIn the event this information is protected by the Federal Confidentiality of Alcohol and Drug Abuse Patient Records regulations: The Federal rules restrict any use of the information to criminally investigate or prosecute any alcohol or drug abuse patient.[facility] HospitalIn the event this information is protected by the Federal Confidentiality of Alcohol and Drug Abuse Patient Records regulations: The Federal rules restrict any use of the information to criminally investigate or prosecute any alcohol or drug abuse patient.[facility] HospitalIn the event this information is protected by the Federal Confidentiality of Alcohol and Drug Abuse Patient Records regulations: The Federal rules restrict any use of the information to criminally investigate or prosecute any alcohol or drug abuse patient.[facility] HospitalIn the event this information is protected by the Federal Confidentiality of Alcohol and Drug Abuse Patient Records regulations: The Federal rules restrict any use of the information to criminally investigate or prosecute any alcohol or drug abuse patient.[facility] HospitalIn the event this information is protected by the Federal Confidentiality of Alcohol and Drug Abuse Patient Records regulations: The Federal rules restrict any use of the information to criminally investigate or prosecute any alcohol or drug abuse patient.[facility] HospitalIn the event this information is protected by the Federal Confidentiality of Alcohol and Drug Abuse Patient Records regulations: The Federal rules restrict any use of the information to criminally investigate or prosecute any alcohol or drug abuse patient.[facility] HospitalIn the event this information is protected by the Federal Confidentiality of Alcohol and Drug Abuse Patient Records regulations: The Federal rules restrict any use of the information to criminally investigate or prosecute any alcohol or drug abuse patient.[facility] HospitalIn the event this information is protected by the Federal Confidentiality of Alcohol and Drug Abuse Patient Records regulations: The Federal rules restrict any use of the information to criminally investigate or prosecute any alcohol or drug abuse patient.[facility] HospitalIn the event this information is protected by the Federal Confidentiality of Alcohol and Drug Abuse Patient Records regulations: The Federal rules restrict any use of the information to criminally investigate or prosecute any alcohol or drug abuse patient.[facility] HospitalIn the event this information is protected by the Federal Confidentiality of Alcohol and Drug Abuse Patient Records regulations: The Federal rules restrict any use of the information to criminally investigate or prosecute any alcohol or drug abuse patient.[facility] HospitalIn the event this information is protected by the Federal Confidentiality of Alcohol and Drug Abuse Patient Records regulations: The Federal rules restrict any use of the information to criminally investigate or prosecute any alcohol or drug abuse patient.[facility] HospitalIn the event this information is protected by the Federal Confidentiality of Alcohol and Drug Abuse Patient Records regulations: The Federal rules restrict any use of the information to criminally investigate or prosecute any alcohol or drug abuse patient.[facility] HospitalIn the event this information is protected by the Federal Confidentiality of Alcohol and Drug Abuse Patient Records regulations: The Federal rules restrict any use of the information to criminally investigate or prosecute any alcohol or drug abuse patient.[facility] HospitalIn the event this information is protected by the Federal Confidentiality of Alcohol and Drug Abuse Patient Records regulations: The Federal rules restrict any use of the information to criminally investigate or prosecute any alcohol or drug abuse patient.[facility] HospitalIn the event this information is protected by the Federal Confidentiality of Alcohol and Drug Abuse Patient Records regulations: The Federal rules restrict any use of the information to criminally investigate or prosecute any alcohol or drug abuse patient.[facility] HospitalIn the event this information is protected by the Federal Confidentiality of Alcohol and Drug Abuse Patient Records regulations: The Federal rules restrict any use of the information to criminally investigate or prosecute any alcohol or drug abuse patient.[facility] HospitalIn the event this information is protected by the Federal Confidentiality of Alcohol and Drug Abuse Patient Records regulations: The Federal rules restrict any use of the information to criminally investigate or prosecute any alcohol or drug abuse patient.[facility] HospitalIn the event this information is protected by the Federal Confidentiality of Alcohol and Drug Abuse Patient Records regulations: The Federal rules restrict any use of the information to criminally investigate or prosecute any alcohol or drug abuse patient.[facility] HospitalIn the event this information is protected by the Federal Confidentiality of Alcohol and Drug Abuse Patient Records regulations: The Federal rules restrict any use of the information to criminally investigate or prosecute any alcohol or drug abuse patient.[facility] HospitalIn the event this information is protected by the Federal Confidentiality of Alcohol and Drug Abuse Patient Records regulations: The Federal rules restrict any use of the information to criminally investigate or prosecute any alcohol or drug abuse patient.[facility] HospitalIn the event this information is protected by the Federal Confidentiality of Alcohol and Drug Abuse Patient Records regulations: The Federal rules restrict any use of the information to criminally investigate or prosecute any alcohol or drug abuse patient.[facility] HospitalIn the event this information is protected by the Federal Confidentiality of Alcohol and Drug Abuse Patient Records regulations: The Federal rules restrict any use of the information to criminally investigate or prosecute any alcohol or drug abuse patient.[facility] HospitalIn the event this information is protected by the Federal Confidentiality of Alcohol and Drug Abuse Patient Records regulations: The Federal rules restrict any use of the information to criminally investigate or prosecute any alcohol or drug abuse patient.[facility] HospitalIn the event this information is protected by the Federal Confidentiality of Alcohol and Drug Abuse Patient Records regulations: The Federal rules restrict any use of the information to criminally investigate or prosecute any alcohol or drug abuse patient.[facility] HospitalIn the event this information is protected by the Federal Confidentiality of Alcohol and Drug Abuse Patient Records regulations: The Federal rules restrict any use of the information to criminally investigate or prosecute any alcohol or drug abuse patient.[facility] HospitalIn the event this information is protected by the Federal Confidentiality of Alcohol and Drug Abuse Patient Records regulations: The Federal rules restrict any use of the information to criminally investigate or prosecute any alcohol or drug abuse patient.[facility] HospitalIn the event this information is protected by the Federal Confidentiality of Alcohol and Drug Abuse Patient Records regulations: The Federal rules restrict any use of the information to criminally investigate or prosecute any alcohol or drug abuse patient.[facility] HospitalIn the event this information is protected by the Federal Confidentiality of Alcohol and Drug Abuse Patient Records regulations: The Federal rules restrict any use of the information to criminally investigate or prosecute any alcohol or drug abuse patient.[facility] HospitalIn the event this information is protected by the Federal Confidentiality of Alcohol and Drug Abuse Patient Records regulations: The Federal rules restrict any use of the information to criminally investigate or prosecute any alcohol or drug abuse patient.[facility] HospitalIn the event this information is protected by the Federal Confidentiality of Alcohol and Drug Abuse Patient Records regulations: The Federal rules restrict any use of the information to criminally investigate or prosecute any alcohol or drug abuse patient.[facility] HospitalIn the event this information is protected by the Federal Confidentiality of Alcohol and Drug Abuse Patient Records regulations: The Federal rules restrict any use of the information to criminally investigate or prosecute any alcohol or drug abuse patient.[facility] HospitalIn the event this information is protected by the Federal Confidentiality of Alcohol and Drug Abuse Patient Records regulations: The Federal rules restrict any use of the information to criminally investigate or prosecute any alcohol or drug abuse patient.[facility] HospitalIn the event this information is protected by the Federal Confidentiality of Alcohol and Drug Abuse Patient Records regulations: The Federal rules restrict any use of the information to criminally investigate or prosecute any alcohol or drug abuse patient.[facility] HospitalIn the event this information is protected by the Federal Confidentiality of Alcohol and Drug Abuse Patient Records regulations: The Federal rules restrict any use of the information to criminally investigate or prosecute any alcohol or drug abuse patient.[facility] HospitalIn the event this information is protected by the Federal Confidentiality of Alcohol and Drug Abuse Patient Records regulations: The Federal rules restrict any use of the information to criminally investigate or prosecute any alcohol or drug abuse patient.[facility] HospitalIn the event this information is protected by the Federal Confidentiality of Alcohol and Drug Abuse Patient Records regulations: The Federal rules restrict any use of the information to criminally investigate or prosecute any alcohol or drug abuse patient.[facility] HospitalIn the event this information is protected by the Federal Confidentiality of Alcohol and Drug Abuse Patient Records regulations: The Federal rules restrict any use of the information to criminally investigate or prosecute any alcohol or drug abuse patient.[facility] HospitalIn the event this information is protected by the Federal Confidentiality of Alcohol and Drug Abuse Patient Records regulations: The Federal rules restrict any use of the information to criminally investigate or prosecute any alcohol or drug abuse patient.[facility] HospitalIn the event this information is protected by the Federal Confidentiality of Alcohol and Drug Abuse Patient Records regulations: The Federal rules restrict any use of the information to criminally investigate or prosecute any alcohol or drug abuse patient.[facility] HospitalIn the event this information is protected by the Federal Confidentiality of Alcohol and Drug Abuse Patient Records regulations: The Federal rules restrict any use of the information to criminally investigate or prosecute any alcohol or drug abuse patient.[facility] HospitalIn the event this information is protected by the Federal Confidentiality of Alcohol and Drug Abuse Patient Records regulations: The Federal rules restrict any use of the information to criminally investigate or prosecute any alcohol or drug abuse patient.[facility] HospitalIn the event this information is protected by the Federal Confidentiality of Alcohol and Drug Abuse Patient Records regulations: The Federal rules restrict any use of the information to criminally investigate or prosecute any alcohol or drug abuse patient.[facility] HospitalIn the event this information is protected by the Federal Confidentiality of Alcohol and Drug Abuse Patient Records regulations: The Federal rules restrict any use of the information to criminally investigate or prosecute any alcohol or drug abuse patient.[facility] HospitalIn the event this information is protected by the Federal Confidentiality of Alcohol and Drug Abuse Patient Records regulations: The Federal rules restrict any use of the information to criminally investigate or prosecute any alcohol or drug abuse patient.[facility] HospitalIn the event this information is protected by the Federal Confidentiality of Alcohol and Drug Abuse Patient Records regulations: The Federal rules restrict any use of the information to criminally investigate or prosecute any alcohol or drug abuse patient.[facility] HospitalIn the event this information is protected by the Federal Confidentiality of Alcohol and Drug Abuse Patient Records regulations: The Federal rules restrict any use of the information to criminally investigate or prosecute any alcohol or drug abuse patient.[facility] HospitalIn the event this information is protected by the Federal Confidentiality of Alcohol and Drug Abuse Patient Records regulations: The Federal rules restrict any use of the information to criminally investigate or prosecute any alcohol or drug abuse patient.[facility] HospitalIn the event this information is protected by the Federal Confidentiality of Alcohol and Drug Abuse Patient Records regulations: The Federal rules restrict any use of the information to criminally investigate or prosecute any alcohol or drug abuse patient.[facility] HospitalIn the event this information is protected by the Federal Confidentiality of Alcohol and Drug Abuse Patient Records regulations: The Federal rules restrict any use of the information to criminally investigate or prosecute any alcohol or drug abuse patient.[facility] HospitalIn the event this information is protected by the Federal Confidentiality of Alcohol and Drug Abuse Patient Records regulations: The Federal rules restrict any use of the information to criminally investigate or prosecute any alcohol or drug abuse patient.[facility] HospitalIn the event this information is protected by the Federal Confidentiality of Alcohol and Drug Abuse Patient Records regulations: The Federal rules restrict any use of the information to criminally investigate or prosecute any alcohol or drug abuse patient.[facility] HospitalIn the event this information is protected by the Federal Confidentiality of Alcohol and Drug Abuse Patient Records regulations: The Federal rules restrict any use of the information to criminally investigate or prosecute any alcohol or drug abuse patient.[facility] HospitalIn the event this information is protected by the Federal Confidentiality of Alcohol and Drug Abuse Patient Records regulations: The Federal rules restrict any use of the information to criminally investigate or prosecute any alcohol or drug abuse patient.[facility] HospitalIn the event this information is protected by the Federal Confidentiality of Alcohol and Drug Abuse Patient Records regulations: The Federal rules restrict any use of the information to criminally investigate or prosecute any alcohol or drug abuse patient.[facility] HospitalIn the event this information is protected by the Federal Confidentiality of Alcohol and Drug Abuse Patient Records regulations: The Federal rules restrict any use of the information to criminally investigate or prosecute any alcohol or drug abuse patient.[facility] HospitalIn the event this information is protected by the Federal Confidentiality of Alcohol and Drug Abuse Patient Records regulations: The Federal rules restrict any use of the information to criminally investigate or prosecute any alcohol or drug abuse patient.[facility] HospitalIn the event this information is protected by the Federal Confidentiality of Alcohol and Drug Abuse Patient Records regulations: The Federal rules restrict any use of the information to criminally investigate or prosecute any alcohol or drug abuse patient.[facility] HospitalIn the event this information is protected by the Federal Confidentiality of Alcohol and Drug Abuse Patient Records regulations: The Federal rules restrict any use of the information to criminally investigate or prosecute any alcohol or drug abuse patient.[facility] HospitalIn the event this information is protected by the Federal Confidentiality of Alcohol and Drug Abuse Patient Records regulations: The Federal rules restrict any use of the information to criminally investigate or prosecute any alcohol or drug abuse patient.[facility] HospitalIn the event this information is protected by the Federal Confidentiality of Alcohol and Drug Abuse Patient Records regulations: The Federal rules restrict any use of the information to criminally investigate or prosecute any alcohol or drug abuse patient.[facility] HospitalIn the event this information is protected by the Federal Confidentiality of Alcohol and Drug Abuse Patient Records regulations: The Federal rules restrict any use of the information to criminally investigate or prosecute any alcohol or drug abuse patient.[facility] HospitalIn the event this information is protected by the Federal Confidentiality of Alcohol and Drug Abuse Patient Records regulations: The Federal rules restrict any use of the information to criminally investigate or prosecute any alcohol or drug abuse patient.[facility] HospitalIn the event this information is protected by the Federal Confidentiality of Alcohol and Drug Abuse Patient Records regulations: The Federal rules restrict any use of the information to criminally investigate or prosecute any alcohol or drug abuse patient.[facility] HospitalIn the event this information is protected by the Federal Confidentiality of Alcohol and Drug Abuse Patient Records regulations: The Federal rules restrict any use of the information to criminally investigate or prosecute any alcohol or drug abuse patient.[facility] HospitalIn the event this information is protected by the Federal Confidentiality of Alcohol and Drug Abuse Patient Records regulations: The Federal rules restrict any use of the information to criminally investigate or prosecute any alcohol or drug abuse patient.[facility] HospitalIn the event this information is protected by the Federal Confidentiality of Alcohol and Drug Abuse Patient Records regulations: The Federal rules restrict any use of the information to criminally investigate or prosecute any alcohol or drug abuse patient.[facility] HospitalIn the event this information is protected by the Federal Confidentiality of Alcohol and Drug Abuse Patient Records regulations: The Federal rules restrict any use of the information to criminally investigate or prosecute any alcohol or drug abuse patient.[facility] HospitalIn the event this information is protected by the Federal Confidentiality of Alcohol and Drug Abuse Patient Records regulations: The Federal rules restrict any use of the information to criminally investigate or prosecute any alcohol or drug abuse patient.[facility] HospitalIn the event this information is protected by the Federal Confidentiality of Alcohol and Drug Abuse Patient Records regulations: The Federal rules restrict any use of the information to criminally investigate or prosecute any alcohol or drug abuse patient.[facility] HospitalIn the event this information is protected by the Federal Confidentiality of Alcohol and Drug Abuse Patient Records regulations: The Federal rules restrict any use of the information to criminally investigate or prosecute any alcohol or drug abuse patient.[facility] HospitalIn the event this information is protected by the Federal Confidentiality of Alcohol and Drug Abuse Patient Records regulations: The Federal rules restrict any use of the information to criminally investigate or prosecute any alcohol or drug abuse patient.[facility] HospitalIn the event this information is protected by the Federal Confidentiality of Alcohol and Drug Abuse Patient Records regulations: The Federal rules restrict any use of the information to criminally investigate or prosecute any alcohol or drug abuse patient.[facility] HospitalIn the event this information is protected by the Federal Confidentiality of Alcohol and Drug Abuse Patient Records regulations: The Federal rules restrict any use of the information to criminally investigate or prosecute any alcohol or drug abuse patient.[facility] HospitalIn the event this information is protected by the Federal Confidentiality of Alcohol and Drug Abuse Patient Records regulations: The Federal rules restrict any use of the information to criminally investigate or prosecute any alcohol or drug abuse patient.[facility] HospitalIn the event this information is protected by the Federal Confidentiality of Alcohol and Drug Abuse Patient Records regulations: The Federal rules restrict any use of the information to criminally investigate or prosecute any alcohol or drug abuse patient.[facility] HospitalIn the event this information is protected by the Federal Confidentiality of Alcohol and Drug Abuse Patient Records regulations: The Federal rules restrict any use of the information to criminally investigate or prosecute any alcohol or drug abuse patient.[facility] HospitalIn the event this information is protected by the Federal Confidentiality of Alcohol and Drug Abuse Patient Records regulations: The Federal rules restrict any use of the information to criminally investigate or prosecute any alcohol or drug abuse patient.[facility] HospitalIn the event this information is protected by the Federal Confidentiality of Alcohol and Drug Abuse Patient Records regulations: The Federal rules restrict any use of the information to criminally investigate or prosecute any alcohol or drug abuse patient.[facility] HospitalIn the event this information is protected by the Federal Confidentiality of Alcohol and Drug Abuse Patient Records regulations: The Federal rules restrict any use of the information to criminally investigate or prosecute any alcohol or drug abuse patient.[facility] HospitalIn the event this information is protected by the Federal Confidentiality of Alcohol and Drug Abuse Patient Records regulations: The Federal rules restrict any use of the information to criminally investigate or prosecute any alcohol or drug abuse patient.[facility] HospitalIn the event this information is protected by the Federal Confidentiality of Alcohol and Drug Abuse Patient Records regulations: The Federal rules restrict any use of the information to criminally investigate or prosecute any alcohol or drug abuse patient.[facility] HospitalIn the event this information is protected by the Federal Confidentiality of Alcohol and Drug Abuse Patient Records regulations: The Federal rules restrict any use of the information to criminally investigate or prosecute any alcohol or drug abuse patient.[facility] HospitalIn the event this information is protected by the Federal Confidentiality of Alcohol and Drug Abuse Patient Records regulations: The Federal rules restrict any use of the information to criminally investigate or prosecute any alcohol or drug abuse patient.[facility] HospitalIn the event this information is protected by the Federal Confidentiality of Alcohol and Drug Abuse Patient Records regulations: The Federal rules restrict any use of the information to criminally investigate or prosecute any alcohol or drug abuse patient.[facility] HospitalIn the event this information is protected by the Federal Confidentiality of Alcohol and Drug Abuse Patient Records regulations: The Federal rules restrict any use of the information to criminally investigate or prosecute any alcohol or drug abuse patient.[facility] HospitalIn the event this information is protected by the Federal Confidentiality of Alcohol and Drug Abuse Patient Records regulations: The Federal rules restrict any use of the information to criminally investigate or prosecute any alcohol or drug abuse patient.[facility] HospitalIn the event this information is protected by the Federal Confidentiality of Alcohol and Drug Abuse Patient Records regulations: The Federal rules restrict any use of the information to criminally investigate or prosecute any alcohol or drug abuse patient.[facility] HospitalIn the event this information is protected by the Federal Confidentiality of Alcohol and Drug Abuse Patient Records regulations: The Federal rules restrict any use of the information to criminally investigate or prosecute any alcohol or drug abuse patient.[facility] HospitalIn the event this information is protected by the Federal Confidentiality of Alcohol and Drug Abuse Patient Records regulations: The Federal rules restrict any use of the information to criminally investigate or prosecute any alcohol or drug abuse patient.[facility] HospitalIn the event this information is protected by the Federal Confidentiality of Alcohol and Drug Abuse Patient Records regulations: The Federal rules restrict any use of the information to criminally investigate or prosecute any alcohol or drug abuse patient.[facility] Reason for Visit (unrecogniz ed section and content) Reason Comments cellulitis OD Specialty Diagnoses / Procedures Referred By Contac t Referred To Contact Emergency Medicine Diagnoses Orbital cellulitis on right [facility] [employer] [facility] [place] [address] Phone: [phone] [facility] [employer] [facility] [place] [address] Phone: [phone] Referral ID Status Reason Start Date Expiration Date Visits Re quested Visits Authorized [id number] 3 Reason Comments Refill Request Reason [...] ABDOMINAL REAL TIME W/IMAGE LIMITED Soila Easton APRN.PROPERTY DISPOSAL OFFICER [address] [place] [address] Us Imaging Referral ID Status Reason Start Date Expiration Date V isits Requested Visits Authorized [id number] Closed Auto-Generate d Referral 04/17/2022 05/17/2023 1 1 Reason Onset Date Comments Refill Request 05/22/2022 Reason Comments Alcohol induced chronic pancreatitis Alc oholic hepatitis w/o ascites Specialty Diagnoses / Procedures Referred By Contac t Referred To Contact Gastroenterology Diagnoses Alcohol-induced chronic pancreatitis (HCC) Alcoholic hepatitis without ascites Procedures CONSULT TO GASTROENTEROLOGY OFFICE/OUTPATIENT NEW HIGH MDM 60-74 MINUTES Soila Easton APRN.PROPERTY DISPOSAL OFFICER [address] [place] [address] Referral ID Status Reason Start Date Expiration Date V isits Requested Visits Authorized [id number] Closed PCP Requested Referral 04/17/2022 04/17/2023 1 1 Reason Onset Date Comments Refill Request 06/13/2022 Reason Onset Date Comments Recheck 3 month follow u p Immunizations 07/18/2022 Flu vaccination Reason Comments Recheck [facility] ER follow up, SO B, fevers in [...] MDM 60-74 MINUTES Misbah Elkins MD [address] [place] [address] Referral ID Status Reason Start Date Expiration Date V isits Requested Visits Authorized [id number] Closed PCP Requested Referral 11/25/2022 11/25/2023 1 [...] CT ABD & PELVIS W/CONTRAST Soila Easton APRN.PROPERTY DISPOSAL OFFICER [address] [place] [address] [place] [address] Referral ID Status Reason Start Date Expiration Date V isits Requested Visits Authorized [id number] Closed Auto-Generate d Referral 08/15/2024 10/14/2024 1 1 Specialty Diagnoses / Procedures Referred By Contac t Referred To Contact CT IMAGING Diagnoses Alcoholic hepatitis without ascites Acute pancreatitis, unspecified complication status, unspecified pancreatitis type Upper abdominal pain Nausea Elevated lipase Generalized abdominal tenderness without rebound tenderness Procedures CT ABD/PEL W IVCON CT ABD & PELVIS W/CONTRAST Soila Easton APRN.PROPERTY DISPOSAL OFFICER [address] [place] [address] Ct Imaging [place] [address] Reason Onset Date Comments Refill Request 10/28/2024 Reason Comments New Patient Chronic recurrent pa ncreatitis (HCC) [K86.1]; 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] Specialty Diagnoses / Procedures Referred By Contac t Referred To Contact Gastroenterology Diagnoses Chronic recurrent pancreatitis (HCC) Alcohol-induced chronic pancreatitis (HCC) Procedures CONSULT TO GASTROENTEROLOGY OFFICE/OUTPATIENT NEW HIGH MDM 60 MINUTES Soila Easton APRN.PROPERTY DISPOSAL OFFICER [address] [place] [address] Referral ID Status Reason Start Date Expiration Date V isits Requested Visits Authorized [id number] Closed PCP Requested Referral 09/02/2024 09/02/2025 1 [...] Comments Patient Question 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 Reason Comments Orders Reason Comments Patient Update Symptoms after ERCP Reason Comments Critical Care Transport Reason Onset Date Comments Refill Request 03/21/2025 Reason Comments Transition Of Care RC f/u discharge LVM Reason Comments Transition Of Care Reason Comments Transition Of Care Left V/m Reason Comments Appointment Reason Comments Hospital F/U Reason Comments Hospital F/U [facility] 04/15/25-04/19/25 Reason Comments Pain medication Reason Onset [...] 2024 End: November 24, 2024 Ani Eduardo TOPSTITCHER ZIGZAG, TOPSTITCHER ZIGZAG-C Attending Provider Active Start: November 24, 2024 End: November 24, 2024 Ani Eduardo TOPSTITCHER ZIGZAG, TOPSTITCHER ZIGZAG-C Referring Provider Active Start: November 24, 2024 [...] Star t: December 05, 2024 Dr. Alex Monteisnos MD Other Provider Active St art: December [...] Provider Active Start: December 06, 2024 Dr. Jiame Rey MD Other Provider Active Start : [...] St art: December 07, 2024 Dr. Franki Jcakson MD Other Provider Active Star t: December [...] Provider Active Sta rt: December 07, 2024 Regulatory Affairs Coordinator Relationship Specialty Start Date End Date Misbah Elkins MD [address] [place] [address] PCP - General Internal Medicine 03/26/21 Regulatory Affairs Coordinator Relationship Specialty Start Date End Date Misbah Elkins MD [address] [place] [address] PCP - General Internal Medicine 03/26/21 Regulatory Affairs Coordinator Relationship Specialty Start Date End Date Misbah Elkins MD [address] [place] [address] PCP - General Internal Medicine 03/26/21 Regulatory Affairs Coordinator Relationship Specialty Start Date End Date Misbah Elkins MD [address] [place] [address] PCP - General Internal Medicine 03/26/21 Regulatory Affairs Coordinator Relationship Specialty Start Date End Date Misbah Elkins MD [address] [facility] [place] [address] PCP - General Internal Medicine 03/26/21 Regulatory Affairs Coordinator Relationship Specialty Start Date End Date Misbah Elkins MD [address] [facility] [place] [address] PCP - General Internal Medicine 03/26/21 Regulatory Affairs Coordinator Relationship Specialty Start Date End Date Misbah Elkins MD [address] [facility] [place] [address] PCP - General Internal Medicine 03/26/21 Regulatory Affairs Coordinator Relationship Specialty Start Date End Date Misbah Elkins MD [address] [facility] [place] [address] PCP - General Internal Medicine 03/26/21 Regulatory Affairs Coordinator Relationship Specialty Start Date End Date Misbah Elkins MD [address] [facility] [place] [address] PCP - General Internal Medicine 03/26/21 Regulatory Affairs Coordinator Relationship Specialty Start Date End Date Misbah Elkins MD [address] [place] [address] PCP - General Internal Medicine 03/26/21 Regulatory Affairs Coordinator Relationship Specialty Start Date End Date Misbah Elkins MD [address] [place] [address] PCP - General Internal Medicine 03/26/21 Regulatory Affairs Coordinator Relationship Specialty Start Date End Date Misbah Elkins MD [address] [facility] [place] [address] PCP - General Internal Medicine 03/26/21 Regulatory Affairs Coordinator Relationship Specialty Start Date End Date Misbah Elkins MD [address] [facility] [place] [address] PCP - General Internal Medicine 03/26/21 Team Status: Active Member Role Status Dates Dr. Bernard Galan III, MD Family Provider Active SOILA OLDER , TOPSTITCHER ZIGZAG-C Primary Care Provider Active Team Status: Inactive Member Role Status Dates SOILA OLDER , TOPSTITCHER ZIGZAG-C Primary Care Provider Active Ani Eduardo TOPSTITCHER ZIGZAG, TOPSTITCHER ZIGZAG-C Attending Provider, Referrin g Provider Active Team Status: Inactive Member Role Status Dates SOILA OLDER , TOPSTITCHER ZIGZAG-C Primary Care Provider Active Dr. Levar Handy DO Attending Provider, Emergency Provider Active Team Status: Inactive Member Role Status Dates SOILA OLDER , TOPSTITCHER ZIGZAG-C Primary Care Provider Active Dr. Tasneem Dykes MD Emergency Provider Active Regulatory Affairs Coordinator Relationship Specialty Start Date End Date Jaime Aggarwal MD [address] [place] [address] Resident Ophthalmology 11/01/22 Jeffery Jin MD [address] [place] [address] Resident Ophthalmology 11/01/22 Team Status: Active Member Role Status Dates SOILA OLDER , TOPSTITCHER ZIGZAG-C Primary Care Provider Active Dr. Edmund Tang MD Emergency Provider Active Dr. Ciarra Ross MD Admit Provider, Attending Provider , Other Provider Active Team Status: Active Member Role Status Dates SOILA OLDER , TOPSTITCHER ZIGZAG-C Primary Care Provider Active Dr. Edmund Tang MD Emergency Provider Active Dr. Ciarra Ross MD Admit Provider, Other Provider Act lopez Dr. Lisa Ochoa MD Attending Provider, Other Provid er Active Team Status: Active Member Role Status Dates SOILA OLDER , TOPSTITCHER ZIGZAG-C Primary Care Provider Active Dr. Edmund Tang MD Emergency Provider Active Dr. Ciarra Ross MD Admit Provider, Other Provider Act lopez Dr. Freddie Perdue MD Other Provider Active Dr. Gonzalo Sebastian DO Attending Provider, Other Provide r Active Dr. Olivier Coffman MD Other Provider Active Dr. Dieter Harrison MD Other Provider Active Ani Eduardo TOPSTITCHER ZIGZAG, TOPSTITCHER ZIGZAG-C Other Provider Active Dr. Anastacia Bonilla MD Other Provider Active Dr. Lisa Ochoa MD Other Provider Active Team Status: Active Member Role Status Lily SHETTYY RUSTAM , TOPSTITCHER ZIGZAG-C Primary Care Provider Active Dr. Edmund Tang MD Emergency Provider Active Dr. Ciarra Ross MD Admit Provider, Other Provider Act lopez Dr. Freddie Perdue MD Other Provider Active Dr. Gonzalo Sebastian DO Other Provider Active Dr. Olivier Coffman MD Other Provider Active Dr. Dieter Harrison MD Other Provider Active Ani Eduardo TOPSTITCHER ZIGZAG, TOPSTITCHER ZIGZAG-C Other Provider Active Dr. Anastacia Bonilla MD Attending Provider, Other Prov ider Active Dr. Lisa Ochoa MD Other Provider Active Team Status: Active Member Role Status Lily SOILA EASTON , TOPSTITCHER ZIGZAG-C Primary Care Provider Active Dr. Edmund Tang MD Emergency Provider Active Dr. Ciarra Ross MD Admit Provider, Other Provider Act lopez Dr. Freddie Perdue MD Other Provider Active Dr. Gonzalo Sebastian DO Other Provider Active Dr. Olivier Coffman MD Other Provider Active Dr. Dieter Harrison MD Other Provider Active Ani Eduardo TOPSTITCHER ZIGZAG, TOPSTITCHER ZIGZAG-C Other Provider Active Dr. Lisa Ochoa MD Other Provider Active Dr. Courtney Iverson MD Other Provider Active Dr. Anastacia Bonilla MD Attending Provider, Other Prov ider Active Team Status: Active Member Role Status Lily SHETTYY RUSTAM , TOPSTITCHER ZIGZAG-C Primary Care Provider Active Dr. Edmund Tang MD Emergency Provider Active Dr. Ciarra Ross MD Admit Provider, Other Provider Act lopez Dr. Freddie Perdue MD Other Provider Active Dr. Gonzalo Sebastian DO Attending Provider, Other Provide r Active Dr. Olivier Coffman MD Other Provider Active Dr. Dieter Harrison MD Other Provider Active Ani Eduardo TOPSTITCHER ZIGZAG, TOPSTITCHER ZIGZAG-C Other Provider Active Dr. Lisa Ochoa MD Other Provider Active Dr. Courtney Iverson MD Other Provider Active Dr. Anastacia Bonilla MD Other Provider Active Team Status: Active Member Role Status Lily RODRIGUEZ OLDER , TOPSTITCHER ZIGZAG-C Primary Care Provider Active Dr. Donn Galan MD Attending Provider Active Team Status: Active Member Role Status Lily SHETTYY OLDER , TOPSTITCHER ZIGZAG-C Primary Care Provider Active Dr. Nacho Vega MD Attending Provider Active Dr. Mahamed Fatima DO Referring Provider Active Team Status: Active Member Role Status Dates SOILA OLDER , TOPSTITCHER ZIGZAG-C Primary Care Provider Active Dr. Edmund Tang [...] Harrison MD Other Provider Active Ani Eduardo TOPSTITCHER ZIGZAG, TOPSTITCHER ZIGZAG-C Other Provider Active Dr. Courtney Iverson MD Other Provider Active Team Status: Inactive Member Role Status Dates SOILA OLDER , TOPSTITCHER ZIGZAG-C Primary Care Provider Active Dr. Tasneem Dykes MD Attending Provider, Emergency Provider Active Team Status: Inactive Member Role Status Dates SOILA OLDER , TOPSTITCHER ZIGZAG-C Primary Care Provider Active Dr. Edmund Tang [...] Harrison MD Other Provider Active Ani Eduardo TOPSTITCHER ZIGZAG, TOPSTITCHER ZIGZAG-C Other Provider Active Dr. Courtney Iverson MD Other Provider Active Regulatory Affairs Coordinator Relationship Specialty Start Date End Date Misbah Elkins MD [address] [place] [address] PCP - General Internal Medicine 03/26/21 Regulatory Affairs Coordinator Relationship Specialty Start Date End Date Misbah Elkins MD [address] [place] [address] PCP - General Internal Medicine 03/26/21 Regulatory Affairs Coordinator Relationship Specialty Start Date End Date Misbah Elkins MD [address] [place] [address] PCP - General Internal Medicine 03/26/21 Regulatory Affairs Coordinator Relationship Specialty Start Date End Date Misbah Elkins MD [address] [place] [address] PCP - General Internal Medicine 03/26/21 Regulatory Affairs Coordinator Relationship Specialty Start Date End Date Misbah Elkins MD [address] [place] [address] PCP - General Internal Medicine 03/26/21 Regulatory Affairs Coordinator Relationship Specialty Start Date End Date Misbah Elkins MD [address] [place] [address] PCP - General Internal Medicine 03/26/21 Regulatory Affairs Coordinator Relationship Specialty Start Date End Date Misbah Elkins MD [address] [place] [address] PCP - General Internal Medicine 03/26/21 Team Status: Active Member Role Status Dates Ani Eduardo TOPSTITCHER ZIGZAG, TOPSTITCHER ZIGZAG-C Attending Provider, Referrin g Provider Active SOILA EASTON , TOPSTITCHER ZIGZAG-C Primary Care Provider Active Team Status: Inactive Member Role Status Dates SOILA EASTON , TOPSTITCHER ZIGZAG-C Primary Care Provider Active Dr. Levar Handy , DO Emergency Provider Active Regulatory Affairs Coordinator Relationship Specialty Start Date End Date Misbah Elkins MD [address] [place] [address] PCP - General Internal Medicine 03/26/21 Regulatory Affairs Coordinator Relationship Specialty Start Date End Date Misbah Elkins MD [address] [place] [address] PCP - General Internal Medicine 03/26/21 Team Status: Inactive Member Role Status Dates SOILA EASTON , TOPSTITCHER ZIGZAG-C Primary Care Provider, Referring Prov ider Active Ani Eduardo TOPSTITCHER ZIGZAG, TOPSTITCHER ZIGZAG-C Attending Provider Active Team Status: Inactive Member Role Status Dates Ani Eduardo TOPSTITCHER ZIGZAG, TOPSTITCHER ZIGZAG-C Attending Provider, Referrin g Provider Active SOILA EASTON , TOPSTITCHER ZIGZAG-C Primary Care Provider Active Regulatory Affairs Coordinator Relationship Specialty Start Date End Date Misbah Elkins MD [address] [place] [address] PCP - General Internal Medicine 03/26/21 Regulatory Affairs Coordinator Relationship Specialty Start Date End Date Misbah Elkins MD [address] [place] [address] PCP - General Internal Medicine 03/26/21 Team Status: Active Member Role Status Dates Dr. Bernard Galan III, MD Family Provider Active Anat Brock TOPSTITCHER ZIGZAG, TOPSTITCHER ZIGZAG-C Primary Care Provider Active Team Status: Active Member Role Status Dates Dr. Víctor Huerta DO Emergency Provider Active Anat Gutiérrez TOPSTITCHER ZIGZAG, TOPSTITCHER ZIGZAG-C Primary Care Provider Active Dr. Carin Meraz MD Admit Provider, Attending Prov ider Active Team Status: Active Member Role Status Dates Dr. Víctor Huerta DO Emergency Provider Active Anat Gutiérrez TOPSTITCHER ZIGZAG, TOPSTITCHER ZIGZAG-C Primary Care Provider Active Dr. Carin Meraz MD Admit Provider, Other Provider Active Dr. Anastacia Bonilla MD Attending Provider, Other Prov ider Active Team Status: Active Member Role Status Dates Dr. Víctor Huerta DO Emergency Provider Active Anat Gutiérrez TOPSTITCHER ZIGZAG, TOPSTITCHER ZIGZAG-C Primary Care Provider Active Dr. Carin Meraz MD Admit Provider, Other Provider Active Dr. Bert Greenwood MD Attending Provider, Other Provi mary Active Dr. Anastacia Bonilla MD Other Provider Active Team Status: Inactive Member Role Status Dates Dr. Víctor Huerta DO Emergency Provider Active Anat Gutiérrez TOPSTITCHER ZIGZAG, TOPSTITCHER ZIGZAG-C Primary Care Provider Active Dr. Carin Meraz MD Admit Provider, Other Provider Active Dr. Bert Greenwood MD Attending Provider Active Dr. Anastacia Bonilla MD Other Provider Active Regulatory Affairs Coordinator Relationship Specialty Start Date End Date Misbah Elkins MD [address] [place] [address] PCP - General Internal Medicine 03/26/21 Regulatory Affairs Coordinator Relationship Specialty Start Date End Date iMsbah Elkins MD [address] [place] [address] PCP - General Internal Medicine 03/26/21 Regulatory Affairs Coordinator Relationship Specialty Start Date End Date Misbah Elkins MD [address] [place] [address] PCP - General Internal Medicine 03/26/21 Team Status: Inactive Member Role Status Dates Anat Gutiérrez TOPSTITCHER ZIGZAG, TOPSTITCHER ZIGZAG-C Primary Care Provider Active Dr. Erik Gomez MD Emergency Provider Active Regulatory Affairs Coordinator Relationship Specialty Start Date End Date Misbah Elkins MD [address] [place] [address] PCP - General Internal Medicine 03/26/21 Regulatory Affairs Coordinator Relationship Specialty Start Date End Date Misbah Elkins MD [address] [place] [address] PCP - General Internal Medicine 03/26/21 Regulatory Affairs Coordinator Relationship Specialty Start Date End Date Misbah Elkins MD [address] [place] [address] PCP - General Internal Medicine 03/26/21 Regulatory Affairs Coordinator Relationship Specialty Start Date End Date Misbah Elkins MD [address] [place] [address] PCP - General Internal Medicine 03/26/21 Regulatory Affairs Coordinator Relationship Specialty Start Date End Date Misbah Elkins MD [address] [place] [address] PCP - General Internal Medicine 03/26/21 Regulatory Affairs Coordinator Relationship Specialty Start Date End Date Misbah Elkins MD [address] [place] [address] PCP - General Internal Medicine 03/26/21 Regulatory Affairs Coordinator Relationship Specialty Start Date End Date Misbah Elkins MD [address] [place] [address] PCP - General Internal Medicine 03/26/21 Regulatory Affairs Coordinator Relationship Specialty Start Date End Date Misbah Elkins MD [address] [place] [address] PCP - General Internal Medicine 03/26/21 Regulatory Affairs Coordinator Relationship Specialty Start Date End Date Misbah Elkins MD [address] [place] [address] PCP - General Internal Medicine 03/26/21 Regulatory Affairs Coordinator Relationship Specialty Start Date End Date Misbah Elkins MD [address] [place] [address] PCP - General Internal Medicine 03/26/21 Regulatory Affairs Coordinator Relationship Specialty Start Date End Date Misbah Elkins MD [address] [place] [address] PCP - General Internal Medicine 03/26/21 Regulatory Affairs Coordinator Relationship Specialty Start Date End Date Misbah Elkins MD [address] [place] [address] PCP - General Internal Medicine 03/26/21 Regulatory Affairs Coordinator Relationship Specialty Start Date End Date Misbah Elkins MD [address] [place] [address] PCP - General Internal Medicine 03/26/21 Regulatory Affairs Coordinator Relationship Specialty Start Date End Date Misbah Elkins MD [address] [place] [address] PCP - General Internal Medicine 03/26/21 Regulatory Affairs Coordinator Relationship Specialty Start Date End Date Misbah Elkins MD [address] [place] [address] PCP - General Internal Medicine 03/26/21 Regulatory Affairs Coordinator Relationship Specialty Start Date End Date Misbah Elkins MD [address] [place] [address] PCP - General Internal Medicine 03/26/21 Regulatory Affairs Coordinator Relationship Specialty Start Date End Date Misbah Elkins MD [address] [place] [address] PCP - General Internal Medicine 03/26/21 Regulatory Affairs Coordinator Relationship Specialty Start Date End Date Misbah Elkins MD [address] [place] [address] PCP - General Internal Medicine 03/26/21 Candie Talley PA-C [address] [place] [address] [facility] 09/04/24 Soila Easton APRN.CNP [address] [place] [address] [facility] 09/04/24 Nara Larson PA-C [address] [place] [address] [facility] 09/04/24 Regulatory Affairs Coordinator Relationship Specialty Start Date End Date Misbah Elkins MD [address] [place] [address] PCP - General Internal Medicine 03/26/21 Candie Talley PA-C [address] [place] [address] [facility] 09/04/24 Soila Easton APRN.PROPERTY DISPOSAL OFFICER [address] [place] [address] [facility] 09/04/24 Nara Larson PA-C [address] [place] [address] [facility] 09/04/24 Regulatory Affairs Coordinator Relationship Specialty Start Date End Date Misbah Elkins MD [address] [place] [address] PCP - General Internal Medicine 03/26/21 Candie Talley PA-C [address] [place] [address] [facility] 09/04/24 Soila Easton APRN.PROPERTY DISPOSAL OFFICER [address] [place] [address] [facility] 09/04/24 Nara Larson PA-C [address] [place] [address] [facility] 09/04/24 Regulatory Affairs Coordinator Relationship Specialty Start Date End Date Misbah Elkins MD [address] [place] [address] PCP - General Internal Medicine 03/26/21 Candie Talley PA-C [address] [place] [address] [facility] [place] [facility]/04/24 Soila Easton APRN.PROPERTY DISPOSAL OFFICER [address] [place] [address] [facility] 09/04/24 Nara Larson PA-C [address] [place] [address] [facility] [place] [place] 09/04/24 Regulatory Affairs Coordinator Relationship Specialty Start Date End Date Misbah Elkins MD [address] [place] [address] PCP - General Internal Medicine 03/26/21 Candie Talley PA-C [address] [place] [address] [facility] 09/04/24 Soila Easton APRN.PROPERTY DISPOSAL OFFICER [address] [place] [address] [facility] 09/04/24 Nara Larson PA-C [address] [place] [address] [facility] [place] [place] 09/04/24 Regulatory Affairs Coordinator Relationship Specialty Start Date End Date Misbah Elkins MD [address] [place] [address] PCP - General Internal Medicine 03/26/21 Candie Talley PA-C [address] [place] [address] [facility] 09/04/24 Soila Easton APRN.PROPERTY DISPOSAL OFFICER [address] [place] [address] [facility] 09/04/24 Nara Larson PA-C [address] [place] [address] [facility] 09/04/24 Regulatory Affairs Coordinator Relationship Specialty Start Date End Date Misbah Elkins MD [address] [place] [address] PCP - General Internal Medicine 03/26/21 Candie Talley PA-C [address] [place] [address] [facility] 09/04/24 Soila Easton APRN.PROPERTY DISPOSAL OFFICER [address] [place] [address] [facility] 09/04/24 Nara Larson PA-C [address] [place] [address] [facility] 09/04/24 Regulatory Affairs Coordinator Relationship Specialty Start Date End Date Misbah Elkins MD [address] [place] [address] PCP - General Internal Medicine 03/26/21 Candie Talley PA-C [address] [place] [address] [facility] 09/04/24 Soila Easton APRN.PROPERTY DISPOSAL OFFICER [address] [place] [address] [facility] 09/04/24 Nara Larson PA-C [address] [place] [address] [facility] 09/04/24 Regulatory Affairs Coordinator Relationship Specialty Start Date End Date Misbah Elkins MD [address] [place] [address] PCP - General Internal Medicine 03/26/21 Candie Talley PA-C [address] [place] [address] [facility] 09/04/24 Soila Easton APRN.PROPERTY DISPOSAL OFFICER [address] [place] [address] [facility] 09/04/24 Nara Larson PA-C [address] [place] [address] [facility] [place] [place] 09/04/24 Regulatory Affairs Coordinator Relationship Specialty Start Date End Date Misbah Elkins MD [address] [place] [address] PCP - General Internal Medicine 03/26/21 Candie Talley PA-C [address] [place] [address] [facility] 09/04/24 Soila Easton APRN.PROPERTY DISPOSAL OFFICER [address] [place] [address] [facility] 09/04/24 Nara Larson PA-C [address] [place] [address] [facility] 09/04/24 Regulatory Affairs Coordinator Relationship Specialty Start Date End Date Misbah Elkins MD [address] [place] [address] PCP - General Internal Medicine 03/26/21 Soila Easton APRN.PROPERTY DISPOSAL OFFICER [address] [place] [address] [facility] 09/04/24 Regulatory Affairs Coordinator Relationship Specialty Start Date End Date Misbah Elkins MD [address] [place] [address] PCP - General Internal Medicine 03/26/21 Soila Easton APRN.PROPERTY DISPOSAL OFFICER [address] [place] [address] [facility] 09/04/24 Regulatory Affairs Coordinator Relationship Specialty Start Date End Date Misbah Elkins MD [address] [place] [address] PCP - General Internal Medicine 03/26/21 Soila Easton APRN.PROPERTY DISPOSAL OFFICER [address] [place] [address] [facility] 09/04/24 Regulatory Affairs Coordinator Relationship Specialty Start Date End Date Misbah Elkins MD [address] [place] [address] PCP - General Internal Medicine 03/26/21 Older, UNA Rodriguez.PROPERTY DISPOSAL OFFICER [address] [place], [place] [id number] [facility] 09/04/24 Team Status: Active Member Role Status Dates Dr. Misbah Elkins MD Primary Care Provider Active Start: November 24, 2024 Ani Eduardo TOPSTITCHER ZIGZAG, TOPSTITCHER ZIGZAG-C Attending Provider Active Start: November 24, 2024 Ani Eduardo TOPSTITCHER ZIGZAG, TOPSTITCHER ZIGZAG-C Referring Provider Active Start: November 24, 2024 Team Status: Active Member Role Status Dates Dr. Misbah Elkins MD Primary Care Provider Active Start: December 04, 2024 Dr. Franco Inman MD Emergency Provider Active S tart: December 04, 2024 Dr. Aleta Aguayo DO Admit Provider Active Start : December 04, 2024 Dr. Aleta Aguayo DO Attending Provider Active S tart: December 04, 2024 Regulatory Affairs Coordinator Relationship Specialty Start Date End Date Misbah Elkins MD [address] [place] [address] PCP - General Internal Medicine 03/26/21 Soila Easton APRN.PROPERTY DISPOSAL OFFICER [address] [place] [address] [facility] 09/04/24 Team Status: Inactive Member [...] Inactive Member Role Status Dates Dr. Misbah lEkins MD Primary Care Provider Active Start: December [...] 2024 End: December 23, 2024 Ani Eduardo TOPSTITCHER ZIGZAG, TOPSTITCHER ZIGZAG-C Attending Provider Active Start: December 23, 2024 End: December 23, 2024 Team Status: Inactive Member Role Status Dates Dr. Misbah Elkins MD Primary Care Provider Active Start: December 24, 2024 End: December 24, 2024 Dr. Mo Velasco DO Emergency Provider Active Start : December 24, 2024 End: December 24, 2024 Regulatory Affairs Coordinator Relationship Specialty Start Date End Date Misbah Elkins MD [address] [place] [address] PCP - General Internal Medicine 03/26/21 Soila Easton APRN.PROPERTY DISPOSAL OFFICER [address] [place] [address] [facility] 09/04/24 Team Status: Inactive Member [...] January 01, 2025 End: January 01, 2025 Regulatory Affairs Coordinator Relationship Specialty Start Date End Date Misbah Elkins MD [address] [place] [address] PCP - General Internal Medicine 03/26/21 Soila Easton APRN.PROPERTY DISPOSAL OFFICER [address] [facility] [place], [place] [address] [phone] [facility] 09/04/24 Regulatory Affairs Coordinator Relationship Specialty Start Date End Date Misbah Elkins MD [address] [facility] [place] [address] PCP - General Internal Medicine 03/26/21 Soila Easton APRN.PROPERTY DISPOSAL OFFICER [address] [facility] [place] [address] [facility] 09/04/24 Regulatory Affairs Coordinator Relationship Specialty Start Date End Date Misbah Elkins MD [address] [place] [address] PCP - General Internal Medicine 03/26/21 Soila Easton APRN.PROPERTY DISPOSAL OFFICER [address] [place] [address] [facility] 09/04/24 Regulatory Affairs Coordinator Relationship Specialty Start Date End Date Misbah Elkins MD [address] [place] [address] PCP - General Internal Medicine 03/26/21 Siola Easton APRN.PROPERTY DISPOSAL OFFICER [address] [facility] [place] [address] [facility] 09/04/24 Team Status: Inactive Member [...] Inactive Member Role Status Dates Anat Gutiérrez TOPSTITCHER ZIGZAG, TOPSTITCHER ZIGZAG-C Referring Provider Active Start: February 08, 2025 End: February 08, 2025 Ani Eduardo TOPSTITCHER ZIGZAG, TOPSTITCHER ZIGZAG-C Attending Provider Active Start: February 08, 2025 End: February 08, 2025 Dr. Misbah Elkins MD Primary Care Provider Active Start: February 08, 2025 End: February 08, 2025 Regulatory Affairs Coordinator Relationship Specialty Start Date End Date Misabh Elkins MD [address] [place], [place] [address] PCP - General Internal Medicine 03/26/21 Soila Easton APRN.PROPERTY DISPOSAL OFFICER [address] [place], [place] [id number] [facility] 09/04/24 Regulatory Affairs Coordinator Relationship Specialty Start Date End Date Misbah Elkins MD [address] [place], [place] [address] PCP - General Internal Medicine 03/26/21 Rustam, Soila, UNA.PROPERTY DISPOSAL OFFICER [address] [place], [place] [address] [facility] 09/04/24 Team Status: Inactive Member Role Status Dates Dr. Misbah Elkins MD Primary Care Provider Active Start: February 26, 2025 End: February 26, 2025 Dr. Franco Inman MD Emergency Provider Active S tart: February 26, 2025 End: February 26, 2025 Regulatory Affairs Coordinator Relationship Specialty Start Date End Date Misbah Elkins MD [address] [facility], [place] [address] PCP - General Internal Medicine 03/26/21 Older, Soila, SENIOR ERP CONSULTANT.PROPERTY DISPOSAL OFFICER [address] [facility], [place] [id number] [facility] 09/04/24 Team Status: Inactive Member Role Status [...] Star t: March 15, 2025 Dr. Sudhir Izqueirdo MD Attending Provider Active Start: March 15, [...] Provider Active Sta rt: March 15, 2025 Regulatory Affairs Coordinator Relationship Specialty Start Date End Date Misbah Elkins MD [address] [place] [address] PCP - General Internal Medicine 03/26/21 Soila Easton APRN.PROPERTY DISPOSAL OFFICER [address] [facility] [place] [address] [facility] 09/04/24 Regulatory Affairs Coordinator Relationship Specialty Start Date End Date Misbah Elkins MD [address] [place] [address] PCP - General Internal Medicine 03/26/21 Soila Easton APRN.PROPERTY DISPOSAL OFFICER [address] [facility] [place] [address] [facility] 09/04/24 Elisa Branch MD [facility] 03/23/25 04/06/25 Regulatory Affairs Coordinator Relationship Specialty Start Date End Date Misbah Elkins MD [address] [place] [address] PCP - General Internal Medicine 03/26/21 Soila Easton APRN.PROPERTY DISPOSAL OFFICER [address] [place] [address] [facility] 09/04/24 Elisa Branch MD [facility] 03/23/25 04/06/25 Regulatory Affairs Coordinator Relationship Specialty Start Date End Date Misbah Elkins MD [address] [place] [address] PCP - General Internal Medicine 03/26/21 Soila Easton APRN.PROPERTY DISPOSAL OFFICER [address] [place] [address] [facility] 09/04/24 Elisa Branch MD [facility] 03/23/25 04/06/25 Regulatory Affairs Coordinator Relationship Specialty Start Date End Date Misbah Elkins MD [address] [facility] [place] [address] PCP - General Internal Medicine 03/26/21 Soila Easton APRN.PROPERTY DISPOSAL OFFICER [address] [facility] [place] [address] [facility] 09/04/24 Elisa Branch MD [facility] 03/23/25 04/06/25 Regulatory Affairs Coordinator Relationship Specialty Start Date End Date Misbah Elkins MD [address] [facility] [place] [address] PCP - General Internal Medicine 03/26/21 Soila Easton APRN.PROPERTY DISPOSAL OFFICER [address] [facility] [place] [address] [facility] 09/04/24 Elisa Branch MD [facility] 03/23/25 04/06/25 Regulatory Affairs Coordinator Relationship Specialty Start Date End Date Misbah Elkins MD [address] [place] [address] PCP - General Internal Medicine 03/26/21 Soila Easton APRN.PROPERTY DISPOSAL OFFICER [address] [facility] [place] [address] [facility] 09/04/24 Team Status: Active Member [...] Active Star t: December 11, 2024 Dr. Demacro Cervantes MD Other Provider Active Sta rt: [...] 2024 End: December 23, 2024 Ani Eduardo TOPSTITCHER ZIGZAG, TOPSTITCHER ZIGZAG-C Attending Provider Active Start: December 23, 2024 [...] Inactive Member Role/Relationship Status Dates Anat Gutiérrez TOPSTITCHER ZIGZAG, TOPSTITCHER ZIGZAG-C Referring Provider Active Start: February 08, 2025 End: February 08, 2025 Ani Eduardo TOPSTITCHER ZIGZAG, TOPSTITCHER ZIGZAG-C Attending Provider Active Start: February 08, 2025 [...] 2025 End: April 10, 2025 Ani Eduardo TOPSTITCHER ZIGZAG, TOPSTITCHER ZIGZAG-C Attending Provider Active Start: April 10, 2025 End: April 10, 2025 Regulatory Affairs Coordinator Relationship Specialty Start Date End Date Misbah Elkins MD [address] [place] [address] PCP - General Internal Medicine 03/26/21 Soila Easton APRN.PROPERTY DISPOSAL OFFICER [address] [place] [address] [facility] 09/04/24 Regulatory Affairs Coordinator Relationship Specialty Start Date End Date Misbah Elkins MD [address] [facility] [place] [address] PCP - General Internal Medicine 03/26/21 Older, UNA Rodriguez.PROPERTY DISPOSAL OFFICER [address] [place] [address] [facility] 09/04/24 Team Status: Inactive Member Role/Relationship Status Dates Dr. Misbah Elkins MD Primary Care Provider Active Start: December 23, 2024 End: December 23, 2024 Dr. Misbah Elkins MD Referring Provider Active Start: December 23, 2024 End: December 23, 2024 Ani Eduardo TOPSTITCHER ZIGZAG, TOPSTITCHER ZIGZAG-C Attending Provider Active Start: December 23, 2024 [...] Inactive Member Role/Relationship Status Dates Anat Gutiérrez TOPSTITCHER ZIGZAG, TOPSTITCHER ZIGZAG-C Referring Provider Active Start: February 08, 2025 End: February 08, 2025 Ani Eduardo TOPSTITCHER ZIGZAG, TOPSTITCHER ZIGZAG-C Attending Provider Active Start: February 08, 2025 [...] 13, 2025 End: March 15, 2025 Dr. Jhnoy Arango MD Other Provider Active Star t: [...] St art: March 16, 2025 Dr. Gonzalo rCuz MD Other Provider Active Start: March 16, [...] 2025 End: April 10, 2025 Ani Eduardo TOPSTITCHER ZIGZAG, TOPSTITCHER ZIGZAG-C Attending Provider Active Start: April 10, 2025 [...] Provider Active Sta rt: April 18, 2025 Regulatory Affairs Coordinator Relationship Specialty Start Date End Date Misbah Elkins MD [address] [place] [address] PCP - General Internal Medicine 03/26/21 Soila Easton APRN.PROPERTY DISPOSAL OFFICER [address] [place], [place] [id number] [facility] 09/04/24 Regulatory Affairs Coordinator Relationship Specialty Start Date End Date Misbah Elkins MD [address] [place], [place] [address] PCP - General Internal Medicine 03/26/21 Soila Easton APRN.PROPERTY DISPOSAL OFFICER [address] [place] [address] [facility] 09/04/24 Regulatory Affairs Coordinator Relationship Specialty Start Date End Date Misbah Elkins MD [address] [place] [address] PCP - General Internal Medicine 03/26/21 Older, UNA Rodriguez.PROPERTY DISPOSAL OFFICER [address] [place] [address] [facility] 09/04/24 Team Status: Inactive Member Role/Relationship Status Dates Dr. Misbha Elkins MD Primary Care Provider Active Start: [...] Inactive Member Role/Relationship Status Dates Anat Gutiérrez TOPSTITCHER ZIGZAG, TOPSTITCHER ZIGZAG-C Referring Provider Active Start: February 08, 2025 End: February 08, 2025 Ani Eduardo TOPSTITCHER ZIGZAG, TOPSTITCHER ZIGZAG-C Attending Provider Active Start: February 08, 2025 [...] Star t: March 14, 2025 Dr. Pako Fernnádez MD Other Provider Active Star t: March [...] 2025 End: April 10, 2025 Ani Eduardo TOPSTITCHER ZIGZAG, TOPSTITCHER ZIGZAG-C Attending Provider Active Start: April 10, 2025 [...] Inactive Member Role/Relationship Status Dates Anat Gutiérrez TOPSTITCHER ZIGZAG, TOPSTITCHER ZIGZAG-C Referring Provider Active Start: February 08, 2025 End: February 08, 2025 Ani Eduardo TOPSTITCHER ZIGZAG, TOPSTITCHER ZIGZAG-C Attending Provider Active Start: February 08, 2025 [...] Active Sta rt: March 15, 2025 Dr. Jacyk Perez MD Other Provider Active [...] 2025 End: April 10, 2025 Ani Eduardo TOPSTITCHER ZIGZAG, TOPSTITCHER ZIGZAG-C Attending Provider Active Start: April 10, 2025 End: April 10, 2025 Team Status: Inactive Member Role/Relationship Status Dates Dr. Misbah Elkins MD Primary Care Provider Active Start: April 16, 2025 End: April 19, 2025 Dr. Erik Gomez MD Referring Provider Active Start: April 16, 2025 End: April 19, 2025 Dr. Erik Gomze MD Emergency Provider Active Start: April 16, [...] May 10, 2025 End: May 10, 2025 Regulatory Affairs Coordinator Relationship Specialty Start Date End Date Misbah Elkins MD [address] [facility] [place] [address] PCP - General Internal Medicine 03/26/21 Soila Easton APRN.PROPERTY DISPOSAL OFFICER [address] [place] [address] [facility] 09/04/24 Regulatory Affairs Coordinator Relationship Specialty Start Date End Date Misbah Elkins MD [address] [facility] [place] [address] PCP - General Internal Medicine 03/26/21 Soila Easton APRN.PROPERTY DISPOSAL OFFICER [address] [facility] [place] [address] [facility] 09/04/24 Regulatory Affairs Coordinator Relationship Specialty Start Date End Date Misbah Elkins MD [address] [facility] [place] [address] PCP - General Internal Medicine 03/26/21 Soila Easton APRN.PROPERTY DISPOSAL OFFICER [address] [place] [address] [facility] 09/04/24 Regulatory Affairs Coordinator Relationship Specialty Start Date End Date Misbah Elkins MD [address] [place] [address] PCP - General Internal Medicine 03/26/21 Soila Easton APRN.PROPERTY DISPOSAL OFFICER [address] [place] [address] [facility] 09/04/24 Team Status: Inactive Member [...] 2025 End: May 24, 2025 Ani Eduardo TOPSTITCHER ZIGZAG, TOPSTITCHER ZIGZAG-C Attending Provider Active Start: May 24, 2025 [...] Inactive Member Role/Relationship Status Dates Anat Gutiérrez TOPSTITCHER ZIGZAG, TOPSTITCHER ZIGZAG-C Referring Provider Active Start: February 08, 2025 End: February 08, 2025 Ani Eduardo TOPSTITCHER ZIGZAG, TOPSTITCHER ZIGZAG-C Attending Provider Active Start: February 08, 2025 [...] Star t: March 15, 2025 Dr. Gonzalo Sebasitan DO Attending Provider Active S tart: March [...] Active St art: March 15, 2025 Dr. oGnzalo Cruz MD Other Provider Active Start: March [...] Star t: March 16, 2025 Dr. Sudhir Izquiredo MD Attending Provider Active Start: March 16, 2025 Dr. Sudhir Izquierdo MD Other Provider Active Start: March 16, 2025 Dr. Elton Abraham MD Other Provider Active Start: March 16, 2025 Dr. Ryan Ortega MD Other Provider Active Start: March 16, 2025 Dr. Freddie Perdue MD Other Provider Active Star t: March 16, 2025 Dr. Gonzalo Seabstian DO Other Provider Active Start : March [...] Start : March 16, 2025 Dr. Warren Anguaino MD Other Provider Active Start: March 16, [...] 2025 End: April 10, 2025 Ani Eduardo TOPSTITCHER ZIGZAG, TOPSTITCHER ZIGZAG-C Attending Provider Active Start: April 10, 2025 [...] 2025 End: May 24, 2025 Ani Eduardo TOPSTITCHER ZIGZAG, TOPSTITCHER ZIGZAG-C Attending Provider Active Start: May 24, 2025 [...] May 24, 2025 End: May 24, 2025 Regulatory Affairs Coordinator Relationship Specialty Start Date End Date Misbah Elkins MD [address] [place] [address] PCP - General Internal Medicine 03/26/21 Soila Easton, UNA.PROPERTY DISPOSAL OFFICER [address] [facility] [place] [address] [facility] 09/04/24 Regulatory Affairs Coordinator Relationship Specialty Start Date End Date Misbah Elkins MD [address] [place] [address] PCP - General Internal Medicine 03/26/21 Soila Easton, SENIOR ERP CONSULTANT.PROPERTY DISPOSAL OFFICER [address] [place] [address] [facility] 09/04/24 Team Status: Active Member [...] tart: March 15, 2025 Dr. Maria Antonia aSlinas MD Nurse Practitioner Active Start: March 15, [...] 2025 End: April 10, 2025 Ani Eduardo TOPSTITCHER ZIGZAG, TOPSTITCHER ZIGZAG-C Attending physician Active Start: April 10, 2025 [...] 2025 End: May 24, 2025 Ani Eduardo TOPSTITCHER ZIGZAG, TOPSTITCHER ZIGZAG-C Attending physician Active Start: May 24, 2025 [...] BE BASED ON THE PRIMARY CLINICAL RECORDS. [employer] provides no warranty or guarantee of the accuracy or completeness of information in this document.
[2025-07-13] MEDS: 0.9% Normal Saline (1000mL) 1,000 ML 125 ML IV ×2 (01:16→09:04)
[2025-07-13 02:10] LABS: Reflex Lactate? Y
[2025-07-13 02:18] LABS: Barbiturate Urine NEGATIVE (< 200 ng/mL); Benzodiazepine Urine NEGATIVE (< 200 ng/mL); PCP Urine NEGATIVE (< 25 ng/mL); THC Urine NEGATIVE (< 50 ng/mL)
[2025-07-13 02:57] LABS: Alcohol, Blood (Medical)-Serum < 10.1 mg/dL (<=10.0)
[2025-07-13 05:41] LABS: Hematocrit 33.5 % (37-47); Hemoglobin 10.4 g/dL (12.0-15.0); Immature Granulocytes Count 0.400 X10^3/uL (0.0-0.0); Mean Corp Hgb Conc 31.0 g/dL (32-36); Mean Corpuscular Volume 86.8 fL (81-99); Mean Platelet Vol. 9.8 fl (6.2-12.0); NRBC Flagged by Analyzer 0 % (0-5); Platelet Count 338 K/mm3 (150-450); RBC Distribution Width CV 14.1 % (11.6-14.6); RBC Distribution Width SD 44.6 fl (35.1-43.9); Red Blood Count 3.86 M/mm3 (4.2-5.4); White Blood Count 17.3 K/mm3 (4.4-11.0)
[2025-07-13 07:08] LABS: Anion Gap 12 (5-15); BUN 23 mg/dL (4-19); BUN/Creat Ratio 20.0 RATIO (10-20); Calcium,Total 8.5 mg/dL (7.6-11.0); Carbon Dioxide 28.0 mmol/L (21.0-32.0); Chloride 94 mmol/L (98-108); Estimated Creatinine Clearance 42.70 ml/min (50-250); Glucose 141 mg/dL (70-99); Potassium 4.2 mmol/L (3.3-5.1)
[2025-07-13] MEDS: Cholecalciferol (VIT D3) 25 MCG TABLET (1,000 UNITS) 50 MCG PO (09:18)
--- NOTE | 2025-07-13 15:46 | CASEMGMT ---
RN?CM?ASSESSMENT ? RN?CM?to room to meet with patient for initial transition planning/care coordination?assessment.?RN?CM?introduced self and role at [facility].? Pt sitting up in chair in room in no distress at this time.? Pt is alert & able to answer many questions appropriately, but then would start saying things that did not pertain to the conversation. Pt's sister, Domonique, in room visiting and verified/corrected information that was provided. Care providers, pharmacy, and demographics verified/updated at this time. ? Strata:3 PCP: Dr Hay Specialists: Dr Gonzalo Sebastian/pulmonology, Dr Segura/GI Preferred Pharmacy: [facility] Insurance:[employer] Prescription Benefit:?yes LNOK: Daughter, Caitie. Sister, Domonique. Pt has another daughter who lives w/her and a son, who is currently in fdc. Living Arrangements: Pt's daughter and son live w/pt. Per Domonique, son is currently in fdc and she states, He will be there a long time. Domonique also reports the daughter who lives w/her has drug addiction issues and still has very bad issues with this currently. Domonique states this is very stressful to patient and she feels she would do better in a different living situation. Domonique states pt's daughter assists pt w/bathing, but she feels pt could use someone coming in to assist her w/this. She also states pt manages her own medications, but has been having issues w/this, stating she gets them all messed up sometimes. Daughter does the cooking and laundry. They live in a 2-story home. Pt's bathroom is on the 2nd floor and the only bathroom in the house is also on the 2nd floor. There are 5 steps to enter into the home. Domonique states she thinks assisted living may be a good option for patient. She is interested in talking w/SW. Liana MOLINA, made aware of the above. Transportation: Sister, daughter, [facility] van, [id number]. DME: ?Pt has a walker, shower chair, pulse ox, nebulizer, and home O2 through [employer]. Pt states she wears it @ 5 L/M. She has a PAP as well, but does not wear it d/t unable to tolerate it. Domonique states pt feels like it is suffocating her. HHC/SNF: No hx of either. Palliative: Domonique states is aware of palliative care, stating there mother had palliative care before going on hospice. Domonique feels pt would benefit from a palliative referral. ? PLAN:??TBD SW to f/u with pt. If pt able to return home, follow for possible HHC for SN and SW. Follow for possible palliative care. Jenny BSN?RN?CM ? ?
--- NOTE | 2025-07-13 16:20 | PN.HOSP_ITS ---
Subjective Subjective Appears to be a little bit confused this morning, arguing with her family but her cell phone Objective Data Objective Data Vital Signs: Vital Signs Temp Pulse Resp BP Pulse Ox O2 Del Method O2 Flow Rate 97.5 F L 95 18 128/94 H 95 Nasal Cannula 5 07/13/25 15:40 07/13/25 15:40 07/13/25 15:40 07/13/25 15:40 07/13/25 15:40 07/13/25 15:40 07/13/25 15:40 Oxygen Flow Rate (L/min) 5 Oxygen Delivery Method Nasal Cannula Weight: 126 lb 12.253 oz Body Mass Index (BMI) 22.4 Intake & Output: Intake and Output for Last 24 Hours 07/12/25 07/13/25 07/14/25 03:59 03:59 03:59 Intake Total 1505 / 1505 Output Total 850 / 850 Balance 655 / 655 Lab / Micro Data 07/14/25 06:52 07/14/25 06:52 Labs: Laboratory Results - last 24 hr 07/12/25 21:30: WBC 20.3 H, RBC 4.71, Hgb 12.5, Hct 41.6, MCV 88.3, MCH 26.5 L, MCHC 30.0 L, RDW Std Deviation 45.1 H, RDW Coeff of Min 14.1, Plt Count 444, MPV 10.1, Immature Gran % (Auto) 3.000 H, Neut % (Auto) 78.0 H, Lymph % (Auto) 11.1 L, [place] % (Auto) 6.4, Eos % (Auto) 0.4, Baso % (Auto) 1.1 H, Absolute Neuts (auto) 15.8 H, Absolute Lymphs (auto) 2.26, Nucleated RBC % 0, PT 12.8, INR 0.9, APTT 27.1, Sodium 135, Potassium 4.5, Chloride 88 L, Carbon Dioxide 33.0 H, Anion Gap 14, BUN 29 H, Creatinine 2.03 H, Estim Creat Clear Calc 23.77 L, Est GFR (MDRD) Non-Af 27 L, BUN/Creatinine Ratio 14.1, Glucose 154 H, Lactic Acid 2.1 H*, Calcium 9.5, Total Bilirubin 0.19, AST 25, ALT 16, Alkaline Phosphatase 157 H, Total Protein 8.1, Albumin 4.1, Globulin 3.9, Albumin/Globulin Ratio 1.1 07/12/25 23:02: Urine Color [place], Urine Clarity Clear, Urine pH 6.0, Ur Specific [place] 1.020, Urine Protein 100 H, Urine Glucose (UA) Normal, Urine Ketones 5 H, Urine Occult Blood 10 H, Urine Nitrite Positive H, Urine Bilirubin Negative, Urine Urobilinogen Normal, Ur Leukocyte Esterase 100 H, Urine RBC 0-5 SEEN, Urine WBC 5-10 SEEN, Ur Squamous Epith Cells 0-5 SEEN, Amorphous Sediment 1+, Urine Bacteria 2+, Hyaline Casts 10-25 SEEN, Urine Mucus 3+, Urine Opiates Screen NEGATIVE, U Buprenorphine Qual NEGATIVE, Ur Oxycodone Screen NEGATIVE, Urine Methadone Screen NEGATIVE, Urine Fentanyl Screen PRESUMPTIVE POSITIVE, Ur Barbiturates Screen NEGATIVE, Ur Phencyclidine Scrn NEGATIVE, Ur Amphetamines Screen NEGATIVE, U Benzodiazepines Scrn NEGATIVE, Urine Cocaine Screen NEGATIVE, U Cannabinoids Screen NEGATIVE 07/13/25 02:10: Urine Opiates Screen Cancelled, U Buprenorphine Qual Cancelled, Ur Oxycodone Screen Cancelled, Urine Methadone Screen Cancelled, Urine Fentanyl Screen Cancelled, Ur Barbiturates Screen Cancelled, Ur Phencyclidine Scrn Cancelled, Ur Amphetamines Screen Cancelled, U Benzodiazepines Scrn Cancelled, Urine Cocaine Screen Cancelled, U Cannabinoids Screen Cancelled 07/13/25 02:15: Lactic Acid 1.8, Ethyl Alcohol < 10.1 07/13/25 05:25: WBC 17.3 H, RBC 3.86 L, Hgb 10.4 L, Hct 33.5 L, MCV 86.8, MCH 26.9 L, MCHC 31.0 L, RDW Std Deviation 44.6 H, RDW Coeff of Min 14.1, Plt Count 338, MPV 9.8, Immature Gran % (Auto) 2.300 H, Neut % (Auto) 89.8 H, Lymph % (Auto) 5.7 L, [place] % (Auto) 1.6, Eos % (Auto) 0.0, Baso % (Auto) 0.6, Absolute Neuts (auto) 15.5 H, Absolute Lymphs (auto) 0.99, Nucleated RBC % 0, Sodium 134, Potassium 4.2, Chloride 94 L, Carbon Dioxide 28.0, Anion Gap 12, BUN 23 H, Creatinine 1.13, Estim Creat Clear Calc 42.70 L, Est GFR (MDRD) Non-Af 55 L, BUN/Creatinine Ratio 20.0, Glucose 141 H, Calcium 8.5 ABG Data ABG results: ABG 07/12/25 23:05 Specimen Type ART Sample Site R Radial pH 7.37 Bicarbonate Actual 40.7 H Total CO2 43 Base Excess 15 H O2 Saturation 88 L O2 % 6.0 ABG pCO2 70.1 H* ABG pO2 60 L Alexis Test Positive O2 Delivery Device Cannula Vent Mode Not entered Crit Call To/Read Back Yes Blood Gas Notified Whom Dr. Reyna Blood Gas Notified Time 23:06:45 Radiography Diagnostic Testing: Radiology Impression Brain CT 07/12/25 22:00 IMPRESSION: No definite acute intracranial abnormality. Mild parenchymal volume loss and chronic microangiopathic changes. Reading Location: [facility] Chest X-Ray 07/12/25 22:15 IMPRESSION: NO ACUTE FINDINGS. Reading Location: [address] Physical Exam Narrative General: Alert, Oriented x 1, Cooperative, No apparent distress HEENT: Atraumatic, PERRLA, EOMI, Normocephalic Oral: Moist Mucosa Neck: Supple, No JVD Lungs: Diminished, Normal air movement, No rhonchi, No wheeze, No rales Cardiovascular: Regular rate, Regular Rhythm, Normal S1, Normal S2, No murmurs Abdomen: Soft, Non Tender, Non-Distended, No Hepato-splenomegaly Extremities: No edema, Capillary Refill Less than 3 Seconds Skin: No rashes, No breakdown Musculoskeletal: No Tenderness to Palpation of Joints or Extremities Neurological: No focal neurological deficits, moves all extremities Psych/Mental Status: Normal Affect, Appropriate Assessment & Plan Assessment/Plan (1) CHUY (acute kidney injury): (2) COPD exacerbation: (3) Acute on chronic hypoxic respiratory failure: PLAN: Plan 1. Acute on chronic hypoxic and hypercapnic respiratory failure secondary to COPD exacerbation with acute metabolic encephalopathy also complicated by UTI ? Continue with oxygen as she wears 5 L nasal cannula at baseline at home ? BiPAP when sleeping ? UA is consistent with a UTI, will continue with Rocephin ? Cultures are pending ? Continue with inhalers and budesonide ? Of note she was on Cipro and Flagyl at home for possible colitis from a previous emergency room visit 2. Essential HTN/HLD ? Blood pressure stable ? Continue with her home medications ? Continue with Lipitor ? Will monitor make adjustments as necessary 3. Chronic pancreatitis secondary to alcohol abuse/GERD ? She had her pancreatic stent removed recently ? Will monitor ? Continue with PPI 4. Anxiety/depression ? Stable ? Continue with her home medications DVT: Lovenox Charges/Coding Visit Charges Inpatient E&M: 63325 Subs Hosp L2
[2025-07-14] VITALS (10 sets, daily range): BP systolic 136–179; BP diastolic 76–85; PULSE 77–102; RESP 16–18; TEMP 36.3–36.7; O2SAT 90–94
[2025-07-14] MEDS: Budesonide Respules 0.5 MG/2 ML AMPUL.NEB. INHALATION (06:29)
[2025-07-14 07:17] LABS: Differential Indicated SCAN CRITERIA MET; Hematocrit 35.5 % (37-47); Hemoglobin 11.0 g/dL (12.0-15.0); Immature Granulocytes Count 0.560 X10^3/uL (0.0-0.0); Mean Corp Hgb Conc 31.0 g/dL (32-36); Mean Corpuscular Volume 86.8 fL (81-99); Mean Platelet Vol. 10.0 fl (6.2-12.0); NRBC Flagged by Analyzer 0.1 % (0-5); POSITIVE DIFFERENTIAL YES; Platelet Count 371 K/mm3 (150-450); RBC Distribution Width CV 14.6 % (11.6-14.6); RBC Distribution Width SD 46.4 fl (35.1-43.9); Red Blood Count 4.09 M/mm3 (4.2-5.4); White Blood Count 20.1 K/mm3 (4.4-11.0)
[2025-07-14 07:45] LABS: Anion Gap 8 (5-15); BUN 15 mg/dL (4-19); BUN/Creat Ratio 22.7 RATIO (10-20); Calcium,Total 8.9 mg/dL (7.6-11.0); Carbon Dioxide 31.3 mmol/L (21.0-32.0); Chloride 100 mmol/L (98-108); Estimated Creatinine Clearance 70.96 ml/min (50-250); Glucose 105 mg/dL (70-99); Potassium 3.9 mmol/L (3.3-5.1)
[2025-07-14] MEDS: Cholecalciferol (VIT D3) 25 MCG TABLET (1,000 UNITS) 50 MCG PO (10:07)
--- NOTE | 2025-07-14 11:37 | CASEMGMT ---
Social Work TRACY received referral from RNCM that pt's sister would like to talk to TRACY regarding pt home situation. Pt does have a HCPOA naming dgt Caitie Lazo. Phone call placed to Caitie and introduced self and role of SW. Caitie with multiple concerns regarding pt's home situation. Pt's daughter Kirsten and pt's son live with pt. Per Caitie, pt's son is currently in the [facility] and Livier is a heavy fentanyl user. Kirsten stays locked in her room where she uses drugs and has a history of overdose. Caitie does not feel pt is safe at home. Caiite reports she found pt lying on the floor at home without her oxygen on and her lips and fingertips were blue and that Kirsten wouldn't allow Caitie to call EMS and did not want her to bring pt to the hospital. Caitie also reports that pt was hallucinating the day prior but at baseline is alert and oriented x3. Caitie believes that pt has fentanyl in her system. TRACY reviewed toxicology report which shows pt tested presumptive positive for fentanyl. Caitie does not feel pt is safe to return home and that pt should kick Kirsten out of the house. Caitie states she notified police of the concerns. Caitie also states that pt has been prescribed Tramadol and had 60 and only 20 are left in a weeks time. Caitie feels pt should go to an assisted living. Dot assists with laundry and housekeeping. TRACY educated Caitie to the assisted living waiver program and to the [facility] waiver program for home caregivers. TRACY also discussed HHC options. TRACY did inform Caitie that if pt is alert and oriented, she will make her own decisions regarding discharge planning and Caitie expresses understanding of this. HCPOA discussed and Kirsten requested SW call pts sister Domonique and provide the above information. TRACY encouraged Caitie to update Domonique as Caitie is HCPOA and this is why TRACY is speaking with her. Caitie gave SW permission to speak with Domonique. TRACY recieved phone call from Domonique with concerns regarding pt home situation. TRACY provided dc options as outlined above and encouraged Domonique to speak to Caitie about additional information. Caitie arrives at hospital and asks to speak with TRACY. TRACY entered pt room. Pt is now alert and oriented and able to answer SW questions appropriately. Pt, pt dgt Caitie and Caitie's daughter in the room. Caitie and granddgt attempting to tell pt their concerns with living situation and with Kirsten. Pt does not engage in this conversation. Pt states that she feels safe at home and wants to return home at discharge. SW spoke with pt regarding [facility] services including waiver program and assisted living waiver program. Pt is agreeable for SW to make referral and pt did discuss finding new housing that would be on one floor. SW spoke with pt about the assisted living waiver program at [facility] and pt was interested in this. Pt is also open to home health services. A list of home health providers including quality and resource use data and consistent with the patient?s preferred geographic region, medical needs, and insurance network were provided from the [employer] Guide. Pt states she has no preference. Referral made to [facility]. DC surgery assistant to make referrals for home health. SW will make referral to APS. Plan: PT plans to return home at time of discharge with home health care CHARLENE Conte
--- NOTE | 2025-07-14 11:52 | PCM.PN.HOSP ---
Subjective Subjective Seem to be doing a bit better today, seems less disoriented Objective Data Objective Data Vital Signs: Vital Signs Temp Pulse Resp BP Pulse Ox O2 Del Method O2 Flow Rate 98.0 F 82 18 179/85 H 90 Nasal Cannula 4 07/14/25 10:00 07/14/25 11:20 07/14/25 11:20 07/14/25 10:05 07/14/25 11:10 07/14/25 10:00 07/14/25 11:10 Oxygen Flow Rate (L/min) 4 Oxygen Delivery Method Nasal Cannula Weight: 126 lb 12.253 oz Body Mass Index (BMI) 22.4 Intake & Output: Intake and Output for Last 24 Hours 07/13/25 07/14/25 07/15/25 03:59 03:59 03:59 Intake Total 2985 / 2985 530 / 530 Output Total 1700 / 1700 1900 / 1900 Balance 1285 / 1285 -1370 / -1370 Lab / Micro Data 07/14/25 06:52 07/14/25 06:52 Labs: Laboratory Results - last 24 hr 07/14/25 06:52: WBC 20.1 H, RBC 4.09 L, Hgb 11.0 L, Hct 35.5 L, MCV 86.8, MCH 26.9 L, MCHC 31.0 L, RDW Std Deviation 46.4 H, RDW Coeff of Min 14.6, Plt Count 371, MPV 10.0, Immature Gran % (Auto) 2.800 H, Neut % (Auto) 72.2 H, Lymph % (Auto) 11.7 L, [place] % (Auto) 12.6 H, Eos % (Auto) 0.1, Baso % (Auto) 0.6, Absolute Neuts (auto) 14.5 H, Absolute Lymphs (auto) 2.36, Nucleated RBC % 0.1, Sodium 139, Potassium 3.9, Chloride 100, Carbon Dioxide 31.3, Anion Gap 8, BUN 15, Creatinine 0.68 L, Estim Creat Clear Calc 70.96, Est GFR (MDRD) Non-Af 99, BUN/Creatinine Ratio 22.7 H, Glucose 105 H, Calcium 8.9 Micro: Microbiology 07/12/25 23:02 Urine Catheter - Jaimes Urine Culture - Preliminary Culture exhibits no growth. Physical Exam Narrative General: Alert, Oriented x 2, Cooperative, No apparent distress HEENT: Atraumatic, PERRLA, EOMI, Normocephalic Oral: Moist Mucosa Neck: Supple, No JVD Lungs: Diminished, Normal air movement, No rhonchi, No wheeze, No rales Cardiovascular: Regular rate, Regular Rhythm, Normal S1, Normal S2, No murmurs Abdomen: Soft, Non Tender, Non-Distended, No Hepato-splenomegaly Extremities: No edema, Capillary Refill Less than 3 Seconds Skin: No rashes, No breakdown Musculoskeletal: No Tenderness to Palpation of Joints or Extremities Neurological: No focal neurological deficits, moves all extremities Psych/Mental Status: Normal Affect, Appropriate Assessment & Plan Assessment/Plan (1) CHUY (acute kidney injury): (2) COPD exacerbation: (3) Acute on chronic hypoxic respiratory failure: PLAN: Plan 1. Acute on chronic hypoxic and hypercapnic respiratory failure secondary to COPD exacerbation with acute metabolic encephalopathy also complicated by UTI ? Continue with oxygen as she wears 5 L nasal cannula at baseline at home ? BiPAP when sleeping ? No growth in her urine culture however she was on Cipro and Flagyl in the outpatient side, will continue with empiric Rocephin ? Encephalopathy appears to be improving slightly ? Continue with inhalers and budesonide ? No need to continue her Cipro and Flagyl from outpatient 2. Essential HTN/HLD ? Blood pressure stable ? Continue with her home medications ? Continue with Lipitor ? Will monitor make adjustments as necessary 3. Chronic pancreatitis secondary to alcohol abuse/GERD ? She had her pancreatic stent removed recently ? Will monitor ? Continue with PPI 4. Anxiety/depression ? Stable ? Continue with her home medications DVT: Lovenox Charges/Coding Visit Charges Inpatient E&M: 11180 Subs Hosp L2
--- NOTE | 2025-07-14 13:45 | CASEMGMT ---
Discharge Planning A list of?HH providers including quality and resource use data and consistent with the patient's preferred geographic region, medical needs, and insurance network was created in [employer] Guide.? This list was provided to the SW. Suellen Alex Discharge Planning Asst.
--- NOTE | 2025-07-14 14:16 | CASEMGMT ---
Addendum entered by Suellen Alex 07/14/25 14:35: [facility] HH has accepted. SOC slated for Thu/. SW updated. Suellen Alex DC Planning Asst. Original Note: Discharge Planning HH referral called in to [facility]. Awaiting response. Suellen Alex DC Planning Asst.
--- NOTE | 2025-07-14 15:12 | CASEMGMT ---
Social Work TRACY called [facility] and spoke with Marina providing report of living situation. Marina accepted report and requests a call back with the discharge date. TRACY will provide this information at the appropriate time. CHARLENE Conte
[2025-07-14] MEDS: 0.9% Saline Lock 10 ML Syringe IV (20:53)
[2025-07-15] VITALS (11 sets, daily range): BP systolic 149–184; BP diastolic 76–92; PULSE 70–101; RESP 16–18; TEMP 36.2–36.7; O2SAT 91–96
[2025-07-15] MEDS: Budesonide Respules 0.5 MG/2 ML AMPUL.NEB. INHALATION ×2 (06:21→20:10)
[2025-07-15 06:50] LABS: Hematocrit 40.1 % (37-47); Hemoglobin 12.4 g/dL (12.0-15.0); Immature Granulocytes Count 0.240 X10^3/uL (0.0-0.0); Mean Corp Hgb Conc 30.9 g/dL (32-36); Mean Corpuscular Volume 87.6 fL (81-99); Mean Platelet Vol. 9.7 fl (6.2-12.0); NRBC Flagged by Analyzer 0 % (0-5); POSITIVE DIFFERENTIAL YES; Platelet Count 356 K/mm3 (150-450); RBC Distribution Width CV 14.9 % (11.6-14.6); RBC Distribution Width SD 47.2 fl (35.1-43.9); Red Blood Count 4.58 M/mm3 (4.2-5.4); White Blood Count 15.6 K/mm3 (4.4-11.0)
[2025-07-15 06:51] LABS: Differential Indicated SCAN CRITERIA MET
[2025-07-15 07:12] LABS: Anion Gap 9 (5-15); BUN 14 mg/dL (4-19); BUN/Creat Ratio 20.4 RATIO (10-20); Calcium,Total 9.1 mg/dL (7.6-11.0); Carbon Dioxide 31.0 mmol/L (21.0-32.0); Chloride 99 mmol/L (98-108); Estimated Creatinine Clearance 67.96 ml/min (50-250); Glucose 121 mg/dL (70-99); Potassium 3.9 mmol/L (3.3-5.1)
[2025-07-15 07:23] LABS: Differential Comment SCANNED
[2025-07-15] MEDS: Cholecalciferol (VIT D3) 25 MCG TABLET (1,000 UNITS) 50 MCG PO (09:22)
[2025-07-15] MEDS: 0.9% Saline Lock 10 ML Syringe IV ×2 (11:45→20:58)
--- NOTE | 2025-07-15 14:45 | CASEMGMT ---
Social Work SW left a message for APS letting them know pt should be d/c tomorrow. DONNY Tillman
--- NOTE | 2025-07-15 18:02 | PN.HOSP_ITS ---
Reason for Visit Chief Complaint: altered mental status Subjective Subjective Still short of breath, close to baseline, overall is feeling better but still somewhat weak Objective Data Objective Data Vital Signs: Vital Signs Temp Pulse Resp BP Pulse Ox O2 Del Method O2 Flow Rate 97.8 F 88 16 154/79 H 94 Nasal Cannula 2 07/15/25 15:10 07/15/25 15:39 07/15/25 15:39 07/15/25 15:10 07/15/25 15:10 07/15/25 15:10 07/15/25 15:10 Oxygen Flow Rate (L/min) 2 Oxygen Delivery Method Nasal Cannula Weight: 57.5 kg Body Mass Index (BMI) 22.4 Intake & Output: Intake and Output for Last 24 Hours 07/13/25 07/14/25 07/15/25 23:59 23:59 23:59 Intake Total 4135 / 4135 1010 / 1010 1930 / 1930 Output Total 1700 / 1700 2450 / 2450 2850 / 2850 Balance 2435 / 2435 -1440 / -1440 -920 / -920 Lab / Micro Data 07/15/25 06:37 07/15/25 06:37 Labs: Laboratory Results - last 24 hr 07/15/25 06:37: WBC 15.6 H, RBC 4.58, Hgb 12.4, Hct 40.1, MCV 87.6, MCH 27.1, M CHC 30.9 L, RDW Std Deviation 47.2 H, RDW Coeff of Min 14.9 H, Plt Count 356, MPV 9.7, Immature Gran % (Auto) 1.500 H, Neut % (Auto) 67.2, Lymph % (Auto) 15.9 L, [place] % (Auto) 10.7 H, Eos % (Auto) 4.1, Baso % (Auto) 0.6, Absolute Neuts (auto) 10.4 H, Absolute Lymphs (auto) 2.48, Nucleated RBC % 0, Differential Comment SCANNED, Sodium 139, Potassium 3.9, Chloride 99, Carbon Dioxide 31.0, Anion Gap 9, BUN 14, Creatinine 0.71, Estim Creat Clear Calc 67.96, Est GFR (MDRD) Non-Af 97, BUN/Creatinine Ratio 20.4 H, Glucose 121 H, Calcium 9.1 Micro: Microbiology 07/12/25 21:43 Blood Culture (Wb) - Anticubital Right Blood Culture - Preliminary No growth in 48 hours. 07/12/25 21:30 Blood Culture (Wb) - Anticubital Right Blood Culture - Preliminary No growth in 48 hours. 07/12/25 23:02 Urine Catheter - Jaimes Urine Culture - Final Culture exhibits no growth. Physical Exam Narrative General: Alert, no apparent distress HEENT: Atraumatic, normocephalic Eyes: Anicteric, normal conjunctiva, extraocular movements grossly intact Neck: Supple Respiratory: Slight increased respiratory effort with scattered wheezes Cardiovascular: Regular rate GI: Soft, nontender, nondistended Extremities: No edema Musculoskeletal: Moving all extremities Neuro: No overt focal neurological deficits Skin: No rashes appreciated Psych: Cooperative Assessment & Plan Assessment/Plan (1) CHUY (acute kidney injury): (2) COPD exacerbation: (3) Acute on chronic hypoxic respiratory failure: PLAN: Plan # Acute on chronic hypoxic and hypercapnic respiratory failure secondary to COPD exacerbation with acute metabolic encephalopathy also complicated by UTI ? Continue with oxygen as she wears 5 L nasal cannula at baseline at home ? BiPAP when sleeping ? No growth in her urine culture however she was on Cipro and Flagyl in the outpatient side, will continue with empiric Rocephin ? Encephalopathy appears to be improving slightly ? Continue with inhalers and budesonide ? No need to continue her Cipro and Flagyl from outpatient -07/15: Patient on DuoNebs and budesonide nebs, slowly improving, culture growth negative however UA had appeared infected but patient was on antibiotics already since May be false negative, continue mobilizing as tolerated, likely DC home tomorrow patient continues to improve # Essential HTN/HLD ? Blood pressure stable ? Continue with her home medications ? Continue with Lipitor ? Will monitor make adjustments as necessary -07/15: Blood pressure 154/79, will increase amlodipine to 10 mg and continue Lopressor at this time # Chronic pancreatitis secondary to alcohol abuse/GERD ? She had her pancreatic stent removed recently ? Will monitor ? Continue with PPI -07/15: Reports some vague abdominal discomfort but did not have any tenderness on palpation # Anxiety/depression ? Stable ? Continue with her home medications -07/15: Patient having stressors regarding children not getting along, supportive care provided DVT: Lovenox Charges/Coding Visit Charges Inpatient E&M: 51756 Subs Hosp L2
[2025-07-16] VITALS (8 sets, daily range): BP systolic 149–177; BP diastolic 73–94; PULSE 90–100; RESP 18; TEMP 36.2–36.6; O2SAT 92–96
[2025-07-16 04:47] LABS: Hematocrit 35.3 % (37-47); Hemoglobin 11.5 g/dL (12.0-15.0); Mean Corp Hgb Conc 32.6 g/dL (32-36); Mean Corpuscular Volume 84.9 fL (81-99); Mean Platelet Vol. 9.7 fl (6.2-12.0); Platelet Count 378 K/mm3 (150-450); RBC Distribution Width CV 14.9 % (11.6-14.6); RBC Distribution Width SD 45.2 fl (35.1-43.9); Red Blood Count 4.16 M/mm3 (4.2-5.4); White Blood Count 16.7 K/mm3 (4.4-11.0)
[2025-07-16 05:04] LABS: Anion Gap 10 (5-15); BUN 13 mg/dL (4-19); BUN/Creat Ratio 19.6 RATIO (10-20); Calcium,Total 8.7 mg/dL (7.6-11.0); Carbon Dioxide 26.2 mmol/L (21.0-32.0); Chloride 99 mmol/L (98-108); Estimated Creatinine Clearance 73.11 ml/min (50-250); Glucose 156 mg/dL (70-99); Potassium 4.1 mmol/L (3.3-5.1)
[2025-07-16] MEDS: Budesonide Respules 0.5 MG/2 ML AMPUL.NEB. INHALATION (06:27)
[2025-07-16] MEDS: 0.9% Saline Lock 10 ML Syringe IV (06:30)
[2025-07-16] MEDS: Cholecalciferol (VIT D3) 25 MCG TABLET (1,000 UNITS) 50 MCG PO (09:41)
--- NOTE | 2025-07-16 13:11 | PCM.DC ---
Discharge Instructions DC O2, CPAP, BIPAP needs Home O2 Discharge instructions: Yes Type of respiratory needs?: Oxygen Oxygen frequency: At rest, With Ambulation Oxygen liters per minute during Ambulation: 4 and With Sleeping Oxygen liters per minute when sleepin Dressing / Incision Discharge Activity: - (Increase activity as tolerated) Follow Up Care Test Results: Test results from this visit will be discussed in further detail at your follow-up appointment, if applicable. Discharge Plan Admission Admit Date/Time: 07/13/25 00:38 Primary Reason for Your Visit: Altered mental status Attending Provider: Lisa Ochoa Primary Care Provider: Annmarie Hay Consulting Providers: Anastacia Bonilla; Sudhir Izquierdo Instructions Patient Instructions: ED Fall Prevention Additional Instructions / Restrictions: DISCHARGE INSTRUCTIONS PLEASE READ *Please take this with you to your next doctors appointment* - Your amlodipine has been increased to 10 mg due to elevated blood pressures. The new prescription has been sent in to preferred pharmacy on file - You will not take the antibiotics you are on prior to admission, instead you will be sent in 1 dose of Levaquin which she will take tomorrow and then your antibiotic course will be completed -Please call your primary care provider's office upon discharge to schedule a hospital follow up within 1 week. -For any concerning signs or symptoms please call 911 or proceed to the nearest emergency department Discharge Orders/Prescriptions Prescriptions: New amlodipine 10 mg Tablet 10 mg PO DAILY 30 Days Qty: 30 0RF levofloxacin 750 mg tablet 750 mg PO DAILY Qty: 1 0RF Rx Instructions: Take dose 07/17/25 Continued mirtazapine 45 mg tablet 45 mg PO QHS lisinopril 10 mg tablet 10 mg PO QDAY albuterol sulfate [Ventolin HFA] 90 mcg/actuation HFA aerosol inhaler 2 puff INHALATION Q4H PRN (Reason: shortness of breath or wheezing) Qty: 18 11RF ondansetron 4 mg tablet,disintegrating 4 mg PO Q6 PRN (Reason: nausea/vomiting) Breztri Aerosphere 160-9-4.8 mcg/actuation HFA aerosol inhaler 2 inh inhalation BID Qty: 10.7 6RF cholecalciferol (vitamin D3) 2,000 UNIT capsule 50 mcg PO DAILY aripiprazole [Abilify] 5 mg Tablet 5 mg PO DAILY metoprolol tartrate 25 mg Tablet 25 mg PO BID 30 Days Qty: 60 0RF Rx Instructions: Hold for heart less than 50 or systolic blood pressure less than 100 mmHg. pantoprazole 40 mg tablet,delayed release (DR/EC) 40 mg PO DAILY simvastatin 20 mg tablet 20 mg PO QHS OXYGEN - Supplemental ([facility] INFORMATIONAL USE ONLY) 5 l intranasal CONT Patient Comments: patient wears between 5-6 liters at home, but she don't know supplier. Patient has been very confused this visit Rx Instructions: USES 5L N/C (DME) Shower chair See Rx Instructions .Route .MEDSUPPLY Qty: 1 0RF Rx Instructions: As directed ipratropium-albuterol 0.5 mg-3 mg(2.5 mg base)/3 mL solution for nebulization 3 ml inhalation Q4H Qty: 360 11RF tramadol 100 mg tablet 100 mg PO BID PRN (Reason: pain) 20 Days Qty: 40 0RF albuterol sulfate 2.5 mg /3 mL (0.083 %) solution for nebulization 2.5 mg continuous nebulization PRN Qty: 180 11RF Discontinued amlodipine 5 mg tablet 5 mg PO DAILY metronidazole 500 mg tablet 500 mg PO Q8H Qty: 21 0RF ciprofloxacin HCl 500 mg tablet 500 mg PO BID Qty: 14 0RF Referrals / Follow Up: Annmarie Hay MD [Primary Care Provider, Internal Medicine] - Within 1 Week Disposition Disposition (needs filled in before D/C Order can be placed): Home Health Service
--- NOTE | 2025-07-16 13:23 | PCM.DC.SUM ---
Providers Date of Admission: 07/13/25 Date of Discharge: 07/16/25 Primary Care Physician: Dr. Annmarie Hay MD Reason For Visit: ACUTE ENCEPHALOPATHY, ACUTE ON CHRONIC RESP FAILUR Diagnosis Discharge Diagnosis (1) CHUY (acute kidney injury): Status: Acute Code(s): N17.9 - Acute kidney failure, unspecified (2) COPD exacerbation: Status: Chronic Code(s): J44.1 - Chronic obstructive pulmonary disease with (acute) exacerbation (3) Acute on chronic hypoxic respiratory failure: Status: Chronic Code(s): J96.21 - Acute and chronic respiratory failure with hypoxia Plan # Hypoxia secondary to noncompliance with O2 and COPD exacerbation # Acute metabolic encephalopathy secondary to UTI and hypoxia # Hypertension # Chronic pancreatitis with biliary stent # GERD # Anxiety and depression Medications at Discharge Home Medications cholecalciferol (vitamin D3) 50 mcg (2,000 unit) capsule 50 mcg PO DAILY SUPPLEMENT 12/29/18 aripiprazole 5 mg tablet (Abilify) 5 mg PO DAILY mood 01/22/21 mirtazapine 45 mg tablet 45 mg PO QHS sleep 01/16/22 metoprolol tartrate 25 mg tablet 25 mg PO BID blood pressure 30 days #60 tabs 01/05/24 lisinopril 10 mg tablet 10 mg PO QDAY hypertension 01/26/24 albuterol sulfate 90 mcg/actuation aerosol inhaler (Ventolin HFA) 2 puff inhalation Q4H PRN shortness of breath or wheezing #18 grams 05/11/24 ondansetron 4 mg disintegrating tablet 4 mg PO Q6 PRN nausea/vomiting 12/23/24 Shower chair #1 ea 12/30/24 ipratropium 0.5 mg-albuterol 3 mg (2.5 mg base)/3 mL nebulization soln 3 ml inhalation Q4H shortness of breath or wheezing #360 mL 01/04/25 pantoprazole 40 mg tablet,delayed release 40 mg PO DAILY acid reflux 03/13/25 simvastatin 20 mg tablet 20 mg PO QHS high cholesterol 03/13/25 budesonide 160 mcg-glycopyr 9 mcg-formot 4.8 mcg/actuation HFA inhaler (Breztri Aerosphere) 2 inh inhalation BID breathing #10.7 grams 04/10/25 OXYGEN - Supplemental ([facility] INFORMATIONAL USE ONLY) 5 l intranasal CONT Pulmonary Information 10/07/25 tramadol 100 mg tablet 100 mg PO BID PRN pain 20 days #40 tabs 07/06/25 albuterol sulfate 2.5 mg/3 mL (0.083 %) solution for nebulization 2.5 mg (3 mL) continuous nebulization PRN COPD #180 mL 07/11/25 amlodipine 10 mg tablet 10 mg PO DAILY 30 days #30 tabs 07/16/25 levofloxacin 750 mg tablet 750 mg PO DAILY #1 TAB 07/16/25 Hospital Course Summary of Care Provided Minutes Spent on Discharge: 35 Hospital Course: 60-year-old female with a history of chronic pancreatitis from previous alcohol use with biliary stent and chronic hypoxic respiratory failure secondary to COPD, hypertension, GERD, depression presented [facility] ED 07/12/2025 due to altered mental status. Patient was found by family without oxygen on with saturations in the 70s, she is brought to ED to be evaluated and ABG with pCO2 of 70, pH of 7.37 and pO2 of 60, bicarb 43. Also had UA suggestive of UTI and it was felt that that contributed to her altered mental status. Patient started on antibiotics, it was later noted that patient had been started on outpatient antibiotics for an unrelated reason and it was felt that this was why urine culture ultimately negative. Patient did improve with antibiotics and supportive care for her breathing with breathing and mental status improving. Patient stable from medical standpoint for discharge home, patient feels safe at home and would like to discharge home. On day of discharge no new or acute complaints, has some chronic abdominal pain and reports it is presently no different than usual, breathing much better than presentation and again patient feels comfortable discharge home. This is reiterated as patient came in and UDS was positive for fentanyl, there have been significant challenges between patient and family with this positive result. Patient had a pancreatic stent removal and biliary stent placed on 07/06 and was given fentanyl however on 07/12U tox presumptive positive for fentanyl and for a one-time dose 1 would not expect this to still be a positive result. There are certainly things that can be false positive for fentanyl, I do not see any obvious medications on patient's home list or list that she received but cannot say definitively. Additionally noted that UDS is presumptive positive for fentanyl and you would need gastric chromatography for confirmatory results which had not been sent so difficult to say this is a true positive. Family apparently was concerned regarding this result and patient's daughter living with her and that that could be why she has fentanyl in her urine, patient adamantly reiterates that she feels safe to go home and does not think that this was the case. Patient asked that I call her sister Domonique to discuss this, attempted to call x 2 but it went to voicemail. Patient is medically stable for discharge and she is awake and alert and able to be discharged, order placed. APS was notified by social work so that they can follow-up given the concerns. Discharge instructions for patient as follows: - Your amlodipine has been increased to 10 mg due to elevated blood pressures. The new prescription has been sent in to preferred pharmacy on file - You will not take the antibiotics you are on prior to admission, instead you will be sent in 1 dose of Levaquin which she will take tomorrow and then your antibiotic course will be completed -Please call your primary care provider's office upon discharge to schedule a hospital follow up within 1 week. -For any concerning signs or symptoms please call 911 or proceed to the nearest emergency department Physical Exam Narrative General: Alert, no apparent distress HEENT: Atraumatic, normocephalic Eyes: Anicteric, normal conjunctiva, extraocular movements grossly intact Neck: Supple Respiratory: Scattered wheezes better than the day before with no increased respiratory effort Cardiovascular: Regular rate GI: Soft, nontender, nondistended Extremities: No edema Musculoskeletal: Moving all extremities Neuro: No overt focal neurological deficits Skin: No rashes appreciated Psych: Cooperative Weight / BMI Weight Weight: 57.5 kg Body Mass Index (BMI) 22.4 ABG / Lab / Microbiology Data 07/16/25 04:37 07/16/25 04:37 Laboratory: Laboratory Results - last 24 hr 07/16/25 04:37: WBC 16.7 H, RBC 4.16 L, Hgb 11.5 L, Hct 35.3 L, MCV 84.9, MCH 27.6, MCHC 32.6 D, RDW Std Deviation 45.2 H, RDW Coeff of Min 14.9 H, Plt Count 378, MPV 9.7, Sodium 135, Potassium 4.1, Chloride 99, Carbon Dioxide 26.2, Anion Gap 10, BUN 13, Creatinine 0.66 L, Estim Creat Clear Calc 73.11, Est GFR (MDRD) Non-Af 99, BUN/Creatinine Ratio 19.6, Glucose 156 H, Calcium 8.7 Microbiology: Microbiology 07/12/25 21:43 Blood Culture (Wb) - Anticubital Right Blood Culture - Preliminary No growth in 48 hours. 07/12/25 21:30 Blood Culture (Wb) - Anticubital Right Blood Culture - Preliminary No growth in 48 hours. 07/12/25 23:02 Urine Catheter - Jaimes Urine Culture - Final Culture exhibits no growth. D/C Instructions Discharge Activity: - (Increase activity as tolerated) DC O2, CPAP, BIPAP Needs Home O2 Discharge instructions: Yes Type of respiratory needs?: Oxygen Oxygen frequency: At rest, With Ambulation Oxygen liters per minute during Ambulation: 4 and With Sleeping Oxygen liters per minute when sleepin DC home with Oxygen: Yes Home O2 MD Review: I have reviewed the oxygen testing, and the patient qualifies for home oxygen equipment and portability. The patient is mobile in the home and the community. Meaningful Use Info Meaningful Use Meaningful Use Diagnoses (Choose all that apply): None applicable Discharge Plan Admission Admit Date/Time: 07/13/25 00:38 Primary Reason for Your Visit: Altered mental status Attending Provider: Lisa Ochoa Primary Care Provider: Annmarie Hay Consulting Providers: Anastacia Bonilla; Sudhir Izquierdo Instructions Patient Instructions: ED Fall Prevention Additional Instructions / Restrictions: DISCHARGE INSTRUCTIONS PLEASE READ *Please take this with you to your next doctors appointment* - Your amlodipine has been increased to 10 mg due to elevated blood pressures. The new prescription has been sent in to preferred pharmacy on file - You will not take the antibiotics you are on prior to admission, instead you will be sent in 1 dose of Levaquin which she will take tomorrow and then your antibiotic course will be completed -Please call your primary care provider's office upon discharge to schedule a hospital follow up within 1 week. -For any concerning signs or symptoms please call 911 or proceed to the nearest emergency department Discharge Orders/Prescriptions Prescriptions: New amlodipine 10 mg Tablet 10 mg PO DAILY 30 Days Qty: 30 0RF levofloxacin 750 mg tablet 750 mg PO DAILY Qty: 1 0RF Rx Instructions: Take dose 07/17/25 Continued mirtazapine 45 mg tablet 45 mg PO QHS lisinopril 10 mg tablet 10 mg PO QDAY albuterol sulfate [Ventolin HFA] 90 mcg/actuation HFA aerosol inhaler 2 puff INHALATION Q4H PRN (Reason: shortness of breath or wheezing) Qty: 18 11RF ondansetron 4 mg tablet,disintegrating 4 mg PO Q6 PRN (Reason: nausea/vomiting) Breztri Aerosphere 160-9-4.8 mcg/actuation HFA aerosol inhaler 2 inh inhalation BID Qty: 10.7 6RF cholecalciferol (vitamin D3) 2,000 UNIT capsule 50 mcg PO DAILY aripiprazole [Abilify] 5 mg Tablet 5 mg PO DAILY metoprolol tartrate 25 mg Tablet 25 mg PO BID 30 Days Qty: 60 0RF Rx Instructions: Hold for heart less than 50 or systolic blood pressure less than 100 mmHg. pantoprazole 40 mg tablet,delayed release (DR/EC) 40 mg PO DAILY simvastatin 20 mg tablet 20 mg PO QHS OXYGEN - Supplemental ([facility] INFORMATIONAL USE ONLY) 5 l intranasal CONT Patient Comments: patient wears between 5-6 liters at home, but she don't know supplier. Patient has been very confused this visit Rx Instructions: USES 5L N/C ([facility] [place]) Shower chair See Rx Instructions .Route .MEDSUPPLY Qty: 1 0RF Rx Instructions: As directed ipratropium-albuterol 0.5 mg-3 mg(2.5 mg base)/3 mL solution for nebulization 3 ml inhalation Q4H Qty: 360 11RF tramadol 100 mg tablet 100 mg PO BID PRN (Reason: pain) 20 Days Qty: 40 0RF albuterol sulfate 2.5 mg /3 mL (0.083 %) solution for nebulization 2.5 mg continuous nebulization PRN Qty: 180 11RF Discontinued amlodipine 5 mg tablet 5 mg PO DAILY metronidazole 500 mg tablet 500 mg PO Q8H Qty: 21 0RF ciprofloxacin HCl 500 mg tablet 500 mg PO BID Qty: 14 0RF Referrals / Follow Up: Annmarie Hay MD [Primary Care Provider, Internal Medicine] - Within 1 Week Disposition Disposition (needs filled in before D/C Order can be placed): Home Health Service Charges/Coding Visit Charges Inpatient E&M: 64710 Disch Hosp >30min
--- NOTE | 2025-07-16 14:22 | PCA ---
THIS US CALLED HOME HEALTH TO LET THEM KNOW PT WAS BEING DISCHARGED TODAY. THEN FAXED DISCHARGE INFORMATION TO [phone] DIRECTED.
== END 2025-07-16 16:16 | disposition home health service (06) | DRG 140 ==
LOC: ED 23:35 → PCU 07-13 00:59
PROVIDERS: Family Medicine; Admitting Provider Student in an Organized Health Care Education/Training Program; Emergency Provider Emergency Medicine; PCP Internal Medicine; Visit Provider Internal Medicine
DX: J44.1 Chronic obstructive pulmonary disease with (acute) exacerbation (principal); G93.41 Metabolic encephalopathy; J96.21 Acute and chronic respiratory failure with hypoxia; I10 Essential (primary) hypertension; F32.A Depression, unspecified; F10.10 Alcohol abuse, uncomplicated; K86.1 Other chronic pancreatitis; N17.9 Acute kidney failure, unspecified; K21.9 Gastro-esophageal reflux disease without esophagitis; E78.5 Hyperlipidemia, unspecified; F17.200 Nicotine dependence, unspecified, uncomplicated; F41.9 Anxiety disorder, unspecified; N39.0 Urinary tract infection, site not specified; Z79.51 Long term (current) use of inhaled steroids; Z79.899 Other long term (current) drug therapy; Y90.0 Blood alcohol level of less than 20 mg/100 ml
CPT/HCPCS: 36415; 36600; 70450; 71046; 74177; 80048; 80053; 80307; 81001; 82077; 82803; 83605; 83690; 85025; 85027; 85610; 85730; 87040; 87086; 93005; 94640; 97116; 97162; 97166; 97530; 97535; 99284; 99285; Q9967; A4216

== ENCOUNTER 2025-08-09 10:55 | Day surgery (SDC) | payer MEDICAID, SELFPAY ==
--- NOTE | 2025-08-08 12:59 | PAT.ANESEVAL ---
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 When Was Last Pacemaker Check QUESTION #4 FULL TEXT: You/Your Family Experience fever (hyperthermia) with Anesthesia Last Oral Intake Last Oral intake: Last Oral Intake NPO since Meds taken in AM with sips of water? Meds patient instructed to take am of surgery PONV PONV - automotive designer: PONV - automotive designer Female Yes 08/08/25 11:53 HX of Motion Sickness No 08/08/25 11:53 HX of N/V After Surgery No 08/08/25 11:53 Non-Smoker Yes 08/08/25 11:53 Duration of Surgery greater Yes 08/08/25 11:53 than 60 minutes Number of Risk Factors 3 08/08/25 11:53 PONV Score Moderate Risk 08/08/25 11:53 Height & Weight Height & Weight: Anesthesia: Height & Weight Height 5 ft 3 in 07/25/25 09:39 Respiratory Assessment Respiratory Assessment - automotive designer: Respiratory Tract Infection Hx - automotive designer Hx Respiratory Tract Infection No 08/08/25 11:53 STOP Sleep Apnea STOP Sleep Apnea - automotive designer: STOP Sleep Apnea - automotive designer Hx Hypertension Yes: CONTROLLED WITH MED 08/08/25 11:53 Hx Sleep Apnea Yes: WEARS VPAP 08/08/25 11:53 CPAP No 08/08/25 11:53 BIPAP No 08/08/25 11:53 Do you snore loudly (louder No 08/08/25 11:53 than talking or can be heard Do you often feel tired/ No 08/08/25 11:53 fatigued/ sleepy during daytime? Has anyone observed you stop No 08/08/25 11:53 breathing during sleep? STOP Results Positive 08/08/25 11:53 QUESTION #5 FULL TEXT : Do you snore loudly (louder than talking or can be heard through closed doors)? Tobacco Use History Tobacco Use History - automotive designer: Tobacco Use History - automotive designer Tobacco Use Cigarettes 01/22/21 20:43 Smoking Status Former smoker 08/08/25 11:53 Hx Tobacco Use Yes 08/08/25 11:53 Years Smoking Packs Smoked per Day Smoking Cessation Date was Yes - quit smoking within 15 08/08/25 11:53 within the last 15 years years Hx Smoking Cessation Date 05/29/25 08/08/25 11:53 Hx Smoking Cessation No 08/08/25 11:53 Counseling Hematologic Medial History Hematologic Hx - automotive designer: Hematologic Medical Hx - charge coordinator Hx of Blood Transfusion No 08/08/25 11:53 Hx of Transfusion in last 3 No 08/08/25 11:53 Months Date of Last Transfusion (if within last 3 months) Ever experience any problems No 08/08/25 11:53 with transfusion(s)? Specify any problems Hx of Preganancy in last 3 No 08/08/25 11:53 Months Nurse Filling Out Transfusion DSCHRIBER 08/08/25 11:53 & Questions: Date: 08/08/25 08/08/25 11:53 Time: 11:55 08/08/25 11:53 Patient unable to answer at this time (ie. confused, unrespo /Reproduction History /Reproductive History - automotive designer: /Reproductive Hx- automotive designer Hx Now No 08/08/25 11:53 Gestational Age (in weeks): EDC: Hx Hx Para Hx Section SAB No 08/08/25 11:53 Does the father of the baby or his family experience fever w Father of the baby Malignant Hypertension history comment [facility] Medical History (Updated 08/08/25 @ 12:03 by Tyra Castro) Followed by palliative care service Anxiety History of steroid therapy Blood disorder Restless legs Shortness of breath on exertion Emphysema, unspecified Leg cramps History of edema On home oxygen therapy Former smoker Wears glasses Wears dentures Sleep apnea History of echocardiogram Encounter for replacement of pancreatic stent Stenosis of left subclavian artery Pulmonary nodule Acute hypoxic respiratory failure Chronic pancreatitis Pancreatic stones HLD (hyperlipidemia) History of alcohol abuse Acute on chronic hypoxic respiratory failure Stage 3 severe COPD by GOLD classification Asthma COPD (chronic obstructive pulmonary disease) Arthritis History of back problems Anxiety and depression Chronic pancreatitis HPV (human papilloma virus) infection Anemia Tobacco abuse GERD (gastroesophageal reflux disease) Benign hypertension Home Medications Medication Instructions Recorded Last Taken Type cholecalciferol (vitamin D3) 50 50 mcg PO DAILY SUPPLEMENT 12/29/18 03/13/25 09:00 History mcg (2,000 unit) capsule 50 mcg aripiprazole 5 mg tablet (Abilify) 5 mg PO DAILY mood 01/22/21 07/06/25 07:30 History mirtazapine 45 mg tablet 45 mg PO QHS sleep 01/16/22 03/12/25 21:00 History 45 mg metoprolol tartrate 25 mg tablet 25 mg PO BID blood pressure 30 01/05/24 07/05/25 Rx days #60 tabs lisinopril 10 mg tablet 10 mg PO QDAY hypertension 01/26/24 07/06/25 07:30 History albuterol sulfate 90 mcg/actuation 2 puff inhalation Q4H PRN 05/11/24 03/13/25 09:00 Rx aerosol inhaler (Ventolin HFA) shortness of breath or wheezing 2 puff #18 grams ondansetron 4 mg disintegrating 4 mg PO Q6 PRN nausea/vomiting 12/23/24 Unknown History tablet Shower chair #1 ea 12/30/24 Unknown Rx pantoprazole 40 mg tablet,delayed 40 mg PO DAILY acid reflux 03/13/25 07/06/25 07:30 History release simvastatin 20 mg tablet 20 mg PO QHS high cholesterol 03/13/25 03/12/25 21:00 History 20 mg budesonide 160 mcg-glycopyr 9 2 inh inhalation BID breathing 04/10/25 Unknown Rx mcg-formot 4.8 mcg/actuation HFA #10.7 grams inhaler (Breztri Aerosphere) OXYGEN - Supplemental ([facility] 5 l intranasal CONT Pulmonary 07/04/25 Unknown History INFORMATIONAL USE ONLY) Information albuterol sulfate 2.5 mg/3 mL 2.5 mg (3 mL) continuous 07/11/25 Unknown Rx (0.083 %) solution for nebulization nebulization PRN COPD #180 mL azithromycin 250 mg tablet 250 mg PO QMWF #12 tabs 07/25/25 Unknown Rx melatonin 1 mg tablet 1 mg PO QHS 07/25/25 Unknown History nicotine 21 mg/24 hr daily 1 patch topical QDAY 07/25/25 Unknown History transdermal patch prednisone 10 mg tablet 10 mg PO QDAY #90 tabs 07/25/25 Unknown Rx amlodipine 10 mg tablet 10 mg PO DAILY 08/08/25 Unknown History ipratropium 0.5 mg-albuterol 3 mg 3 ml inhalation Q4H PRN shortness 08/08/25 Unknown History (2.5 mg base)/3 mL nebulization of breath or wheezing soln Allergy/AdvReac Type Severity Reaction Status Date / Time clindamycin Allergy Intermediate Hives Verified 08/08/25 11:37 Penicillins Allergy Hives Verified 08/08/25 11:37 sulfamethoxazole (From Allergy Other Verified 08/08/25 11:37 Bactrim) trimethoprim (From Bactrim) Allergy Other Verified 08/08/25 11:37 hydrocodone (From [facility] [place]) AdvReac Itching Verified 08/08/25 11:37 Family History Mother Diabetes Hypertension Heart disease High cholesterol Arthritis Thyroid disorder Brother Hypertension Sister Cancer cervical Thyroid disorder Father Kidney disease Daughter Thyroid disorder Surgical History History of tubal ligation History of colonoscopy History of appendectomy Social History household members: family Smoking Status: Former smoker quit date: 03/25/25 Tobacco: How many years used: 30 second hand exposure: Yes alcohol intake: former details: Sober since 2020. substance use type: does not use caffeine: Yes Audit: Pertinent Findings Pertinent Findings EKG Perinent findings: 06/2025: NSR, ST&T wave abnormality, laterial ischemia, QTc>480. NO STEMI. Echo (EF%) pertinent findings: 12/05/2024. EF 70%. Trivial mitral valve insufficiency. Pulmonary function results/spirometer pertinent findings: COPD. FEV1 33%. Recommendation Anesthesia Recommendation Anesthesia recommendation: OPTIMIZED for anesthesia (Patient has multiple comorbidities, including severe COPD. Pulmonary has seen the patient, and at this time this may be the most optimized she can be. Decision to proceed based on anesthesiologist evaluation on DOS )
[2025-08-09] VITALS (13 sets, daily range): BP systolic 110–188; BP diastolic 54–94; PULSE 87–108; RESP 14–18; TEMP 36.1–36.9; O2SAT 92–100; BMI 20.7
--- NOTE | 2025-08-09 11:02 | EKG12_ITS ---
Test Reason : PRE OP Blood Pressure : */* mmHG Vent. Rate : 102 BPM Atrial Rate : 102 BPM P-R Int : 172 ms QRS Dur : 86 ms QT Int : 346 ms P-R-T Axes : 84 73 62 degrees QTcB Int : 450 ms Sinus tachycardia Septal infarct , age undetermined Abnormal ECG When compared with ECG of 12-Jul-2025 22:40, T wave inversion no longer evident in Lateral leads Confirmed by JIMMIE MENENDEZ, JAXON ([id number]), scientific editor LEONARD BAUTISTA ([id number]) on 08/14/2025 9:45:30 AM Referred By: Annmarie Hay Confirmed By: JAXON SAMUEL MD
[2025-08-09] MEDS: Lactated Ringers 1,000 ML 15 ML IV (11:40)
--- NOTE | 2025-08-09 11:49 | PCM.PRE.AN2 ---
ASA Classification* ASA Classification ASA Classification: 4 (HTN, BONY (VPAP), COPD with 5 L o2, GERD, anx, asthma, chronic pancreatitis) Assessment & Plan Anesthesia* Anesthesia Assessment Anesthesia Assessment: Discussed sedation and/or anesthesia options, risks, benefits, and alternatives with patient/parents/legal guardian/POA. Questions invited. The patient/parents/legal guardian/POA seems to understand and agrees to proceed with anesthesia plan. Reviewed the physical assessment, medical history, allergy history and patient home medications list prior to surgery/procedure/anesthetic and documented any changes. Performed airway and anesthesia risk assessments. Drank apple juice (clear liquid) at 11 Am. Will proceed at 1300 Duoneb preop for COPD optimization Anesthesia Type Anesthesia Type: General History Source History Obtained from:: Patient and Chart Anesthesia Focused Assessment* Temperature: 98.4 F Pulse Rate: 98 Blood Pressure: 125/93 Respiratory Rate: 18 Pulse Ox: 100 Oxygen Delivery Method: Nasal Cannula Oxygen Flow Rate (L/min): 5 Airway Assessment Mouth opens: >3 cm Mallampati Score: II Neck Range of motion (ROM): Full ROM Labs Anesthesia Preop lab: CBC WBC, (4.4-11.0) 16.7 K/mm3 H 07/16/25, 04:37 RBC, (4.2-5.4) 4.16 M/mm3 L 07/16/25, 04:37 Hgb, (12.0-15.0) 11.5 g/dL L 07/16/25, 04:37 Hct, (37-47) 35.3 % L 07/16/25, 04:37 Plt Count, (150-450) 378 K/mm3 07/16/25, 04:37 CHEMISTRY Potassium, (3.3-5.1) 4.1 mmol/L 07/16/25, 04:37 Sodium, (133-145) 135 mmol/L 07/16/25, 04:37 Magnesium, (1.5-2.2) 1.5 mg/dL 04/15/25, 23:25 Phosphorus, (2.7-4.5) 4.4 mg/dL 04/16/25, 05:30 BUN, (4-19) 13 mg/dL 07/16/25, 04:37 Creatinine, (0.70-1.20) 0.66 mg/dL L 07/16/25, 04:37 Glucose, (70-99) 156 mg/dL H 07/16/25, 04:37 POC Glucose, (70-110) 141 mg/dL H 04/19/19, 23:12 TSH, (0.300-4.200) 1.340 uIU/mL 04/16/25, 05:30 COAG PT, (11.7-14.9) 12.8 SECONDS 07/12/25, 21:30 Pre-Assessment Diagnosis/Proposed Procedure Planned Operative Procedure(s): ERCP SPYGLASS Anesthesia History 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 When Was Last Pacemaker Check QUESTION #4 FULL TEXT: You/Your Family Experience fever (hyperthermia) with Anesthesia Last Oral Intake Last Oral intake: Last Oral Intake NPO since 10:50 08/09/25 11:22 Meds taken in AM with sips of No 08/09/25 11:22 water? Meds patient instructed to take am of surgery PONV PONV - washer repairman: PONV - washer repairman Female Yes 08/08/25 11:53 HX of Motion Sickness No 08/08/25 11:53 HX of N/V After Surgery No 08/08/25 11:53 Non-Smoker Yes 08/08/25 11:53 Duration of Surgery greater Yes 08/08/25 11:53 than 60 minutes Number of Risk Factors 3 08/08/25 11:53 PONV Score Moderate Risk 08/08/25 11:53 Height & Weight Height & Weight: Anesthesia: Height & Weight Height 5 ft 3 in 08/09/25 11:22 Weight: 53 kg 08/09/25 11:22 Body Mass Index (BMI) 20.7 08/09/25 11:22 Respiratory Assessment Respiratory Assessment - washer repairman: Respiratory Tract Infection Hx - washer repairman Hx Respiratory Tract Infection No 08/08/25 11:53 STOP Sleep Apnea STOP Sleep Apnea - washer repairman: STOP Sleep Apnea - washer repairman Hx Hypertension Yes: CONTROLLED WITH MED 08/08/25 11:53 Hx Sleep Apnea Yes: WEARS VPAP 08/08/25 11:53 CPAP No 08/08/25 11:53 BIPAP No 08/08/25 11:53 Do you snore loudly (louder No 08/08/25 11:53 than talking or can be heard Do you often feel tired/ No 08/08/25 11:53 fatigued/ sleepy during daytime? Has anyone observed you stop No 08/08/25 11:53 breathing during sleep? STOP Results Positive 08/08/25 11:53 QUESTION #5 FULL TEXT : Do you snore loudly (louder than talking or can be heard through closed doors)? 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 Specify any problems Hx of Preganancy in last 3 No 08/08/25 11:53 Months Nurse Filling Out Transfusion DSCHRIBER 08/08/25 11:53 & Questions: Date: 08/08/25 08/08/25 11:53 Time: 11:55 08/08/25 11:53 Patient unable to answer at this time (ie. confused, unrespo /Reproduction History /Reproductive History - washer repairman: /Reproductive Hx- washer repairman Hx Now No 08/08/25 11:53 Gestational Age (in weeks): EDC: Hx Hx Para Hx Section SAB No 08/08/25 11:53 Does the father of the baby or his family experience fever w Father of the baby Malignant Hypertension history comment Active Medications Active Medications: Current Medications Generic Name Dose Route Start Last Admin Trade Name Freq PRN Reason Stop Dose Admin Lactated Ringer's 1,000 mls @ 15 mls/hr 08/09/25 11:15 08/09/25 11:40 IV 15 mls/hr .Q48H DACIA Administration [facility] Medical History (Updated 08/08/25 @ 12:03 by Tyra Castro) Followed by palliative care service Anxiety History of steroid therapy Blood disorder Restless legs Shortness of breath on exertion Emphysema, unspecified Leg cramps History of edema On home oxygen therapy Former smoker Wears glasses Wears dentures Sleep apnea History of echocardiogram Encounter for replacement of pancreatic stent Stenosis of left subclavian artery Pulmonary nodule Acute hypoxic respiratory failure Chronic pancreatitis Pancreatic stones HLD (hyperlipidemia) History of alcohol abuse Acute on chronic hypoxic respiratory failure Stage 3 severe COPD by GOLD classification Asthma COPD (chronic obstructive pulmonary disease) Arthritis History of back problems Anxiety and depression Chronic pancreatitis HPV (human papilloma virus) infection Anemia Tobacco abuse GERD (gastroesophageal reflux disease) Benign hypertension Home Medications Medication Instructions Recorded Last Taken Type cholecalciferol (vitamin D3) 50 50 mcg PO DAILY SUPPLEMENT 12/29/18 03/13/25 09:00 History mcg (2,000 unit) capsule 50 mcg aripiprazole 5 mg tablet (Abilify) 5 mg PO DAILY mood 01/22/21 07/06/25 07:30 History mirtazapine 45 mg tablet 45 mg PO QHS sleep 01/16/22 03/12/25 21:00 History 45 mg metoprolol tartrate 25 mg tablet 25 mg PO BID blood pressure 30 01/05/24 07/05/25 Rx days #60 tabs lisinopril 10 mg tablet 10 mg PO QDAY hypertension 01/26/24 07/06/25 07:30 History albuterol sulfate 90 mcg/actuation 2 puff inhalation Q4H PRN 05/11/24 03/13/25 09:00 Rx aerosol inhaler (Ventolin HFA) shortness of breath or wheezing 2 puff #18 grams ondansetron 4 mg disintegrating 4 mg PO Q6 PRN nausea/vomiting 12/23/24 Unknown History tablet Shower chair #1 ea 12/30/24 Unknown Rx pantoprazole 40 mg tablet,delayed 40 mg PO DAILY acid reflux 03/13/25 07/06/25 07:30 History release simvastatin 20 mg tablet 20 mg PO QHS high cholesterol 03/13/25 03/12/25 21:00 History 20 mg budesonide 160 mcg-glycopyr 9 2 inh inhalation BID breathing 04/10/25 Unknown Rx mcg-formot 4.8 mcg/actuation HFA #10.7 grams inhaler ([employer]) OXYGEN - Supplemental ([facility] 5 l intranasal CONT Pulmonary 07/04/25 Unknown History INFORMATIONAL USE ONLY) Information albuterol sulfate 2.5 mg/3 mL 2.5 mg (3 mL) continuous 07/11/25 Unknown Rx (0.083 %) solution for nebulization nebulization PRN COPD #180 mL azithromycin 250 mg tablet 250 mg PO QMWF #12 tabs 07/25/25 Unknown Rx melatonin 1 mg tablet 1 mg PO QHS 07/25/25 Unknown History nicotine 21 mg/24 hr daily 1 patch topical QDAY 07/25/25 Unknown History transdermal patch prednisone 10 mg tablet 10 mg PO QDAY #90 tabs 07/25/25 Unknown Rx amlodipine 10 mg tablet 10 mg PO DAILY 08/08/25 Unknown History ipratropium 0.5 mg-albuterol 3 mg 3 ml inhalation Q4H PRN shortness 08/08/25 Unknown History (2.5 mg base)/3 mL nebulization of breath or wheezing soln Allergy/AdvReac Type Severity Reaction Status Date / Time clindamycin Allergy Intermediate Hives Verified 08/09/25 11:19 Penicillins Allergy Hives Verified 08/09/25 11:19 sulfamethoxazole (From Allergy Other Verified 08/09/25 11:19 Bactrim) trimethoprim (From Bactrim) Allergy Other Verified 08/09/25 11:19 hydrocodone (From [place]) AdvReac Itching Verified 08/09/25 11:19 Family History Mother Diabetes Hypertension Heart disease High cholesterol Arthritis Thyroid disorder Brother Hypertension Sister Cancer cervical Thyroid disorder Father Kidney disease Daughter Thyroid disorder Surgical History History of tubal ligation History of colonoscopy History of appendectomy Social History household members: family Smoking Status: Former smoker quit date: 03/25/25 Tobacco: How many years used: 30 second hand exposure: Yes alcohol intake: former details: Sober since 2020. substance use type: does not use caffeine: Yes Review of Systems (Anesthesia) ROS Narrative System reviewed and no additional complaints, except as documented. Physical Exam Const alert, oriented x3 and average body habitus Resp normal respiratory effort Effort and Inspection: labored Auscultation: clear to auscultation bilaterally Cardio regular rate, regular rhythm and no murmurs
--- NOTE | 2025-08-09 12:00 | TISS_PTH ---
PATIENT: MIR KANG LOC: EN U#:[id number] AGE/SX: 60/F ROOM: RE08/09/[address]: Dr. Marshal Segura DO : 1965 BED: DIS: 08/09/2025 SPEC #: [id number] RECD: 08/09/25 14:30 STATUS: WAYNE JUAN C #: [id number] DEB: 08/09/25 12:[address]: Marshal Segura DEPT: SURGICAL PATHOLOGY RECD BY: Jonh Gonzalez ENTERED: 08/10/25 10:16 SP TYPE: Tissue Bx EHIDI DR: Dr. Annmarie Hay MD Tissues: A - Biliary tract, NOS Procedures: Surgery Specimen Level III HEADER OPERATION: ERCP, spyglass with spybites PRE-OP DIAGNOSIS: Chronic pancreatitis TISSUE SUBMITTED: A- Biliary stricture biopsy - spybite MICROSCOPIC DIAGNOSIS A. Bile duct/ampulla, ERCP: - Acute inflammation and fibrosis, consistent with a stricture COMMENT Corresponding case: [id number] MICROSCOPIC DESCRIPTION Slides are reviewed. GROSS DESCRIPTION A. Received in fixative is one container labeled with the patient's name and designated "Biliary stricture biopsy - spybite." The specimen consists of multiple irregular fragments of hess tissue, each measuring 0.2cm. The specimen is totally submitted in one cassette. AL 08/10/2025 CPT:67600
--- NOTE | 2025-08-09 12:00 | FLU_PTH ---
PATIENT: MIR KANG LOC: EN U#:[id number] AGE/SX: 60/F ROOM: RE08/09/[address]: Dr. Marshal Segura DO : 1965 BED: DIS: 08/09/2025 SPEC #: [id number] RECD: 08/09/25 14:30 STATUS: WAYNE JUAN C #: [id number] DEB: 08/09/25 12:[address]: Marshal Segura DEPT: CYTOLOGY RECD BY: Jonh Gonzalez ENTERED: 08/10/25 08:29 SP TYPE: Fluid OTHR DR: Dr. Annmarie Hay MD Tissues: A - Biliary tract, NOS Procedures: Special Stain Group II Surgery Specimen Level IV Cytospin Fluid HEADER OPERATION: ERCP, spyglass with spybites PRE-OP DIAGNOSIS: Chronic pancreatitis TISSUE SUBMITTED: A- Biliary stent for cytology DIAGNOSIS CYTOLOGY A. Biliary stent, ERCP (cytospin, cellblock): - Essentially acellular specimen. - Yeast is present. COMMENT Corresponding case : [id number] CYTOLOGY STUDY Slides are reviewed. CYTOLOGY GROSS A. Received is a 10cm blue stent with 0.2ml of yellow material labeled with the patient's name and and designated per the requisition as "Biliary stent." Submitted for cytology and cell block preparation. 08/10/2025 CPT: 77821,89006
--- NOTE | 2025-08-09 12:29 | PCM.HP.STD ---
HPI - General General Date of Admission: 08/09/25 Date of Service: 08/09/25 Chief Complaint: biliary stricture HPI Narrative GRACIE KANG, is a 60 F who presents [ Chief Complaint: Chronic pancreatitis Past medical history of chronic pancreatitis and severe COPD. Last office visit 04/26/2025 for full hospital follow-up due to acute pancreatitis. Pain is well-controlled with tramadol and Tylenol. Scheduled for ERCP with stent removal and recommended pain management. ERCP 07/06/2025: A single segmental biliary stricture was found in the lower third of the main bile duct. The stricture was indeterminate. The lower third of the main bile duct was dilated, uncertain etiology. The patient has had a cholecystectomy. Choledocholithiasis was found. Complete removal was accomplished by biliary sphincterotomy and balloon extraction. Pancreatic stones were found. Complete removal was accomplished. 1 stent was removed from the pancreatic duct. A pancreatic sphincterotomy was performed. The ventral pancreatic duct was swept. A biliary sphincterotomy was performed. The biliary tree was swept. 1 temporary stent was placed in the common bile duct. Cells for cytology obtained in the lower third of the main bile duct. Pathology: Biliary stricture brushing brush tip atypical cells present. Pancreatic stent nondiagnostic due to insufficient cellular material. *Per Dr. Segura, patient needs repeat ERCP with spyglass and directed biopsies. [facility] admission 07/12/2025 - 07/16/2025 after being found at her home on the ground without her oxygen on and low pulse ox (58%). OV 07/20/2025 patient feeling better since hospitalization. She continues to have epigastric pain especially while eating. Here today to review results from ERCP [facility] Medical History Followed by palliative care service Anxiety History of steroid therapy Blood disorder Restless legs Shortness of breath on exertion Emphysema, unspecified Leg cramps History of edema On home oxygen therapy Former smoker Wears glasses Wears dentures Sleep apnea History of echocardiogram Encounter for replacement of pancreatic stent Stenosis of left subclavian artery Pulmonary nodule Acute hypoxic respiratory failure Chronic pancreatitis Pancreatic stones HLD (hyperlipidemia) History of alcohol abuse Acute on chronic hypoxic respiratory failure Stage 3 severe COPD by GOLD classification Asthma COPD (chronic obstructive pulmonary disease) Arthritis History of back problems Anxiety and depression Chronic pancreatitis HPV (human papilloma virus) infection Anemia Tobacco abuse GERD (gastroesophageal reflux disease) Benign hypertension Home Medications Medication Instructions Recorded Last Taken Type cholecalciferol (vitamin D3) 50 50 mcg PO DAILY SUPPLEMENT 12/29/18 03/13/25 09:00 History mcg (2,000 unit) capsule 50 mcg aripiprazole 5 mg tablet (Abilify) 5 mg PO DAILY mood 01/22/21 07/06/25 07:30 History mirtazapine 45 mg tablet 45 mg PO QHS sleep 01/16/22 03/12/25 21:00 History 45 mg metoprolol tartrate 25 mg tablet 25 mg PO BID blood pressure 30 01/05/24 07/05/25 Rx days #60 tabs lisinopril 10 mg tablet 10 mg PO QDAY hypertension 01/26/24 07/06/25 07:30 History albuterol sulfate 90 mcg/actuation 2 puff inhalation Q4H PRN 05/11/24 03/13/25 09:00 Rx aerosol inhaler (Ventolin HFA) shortness of breath or wheezing 2 puff #18 grams ondansetron 4 mg disintegrating 4 mg PO Q6 PRN nausea/vomiting 12/23/24 Unknown History tablet Shower chair #1 ea 12/30/24 Unknown Rx pantoprazole 40 mg tablet,delayed 40 mg PO DAILY acid reflux 03/13/25 07/06/25 07:30 History release simvastatin 20 mg tablet 20 mg PO QHS high cholesterol 03/13/25 03/12/25 21:00 History 20 mg budesonide 160 mcg-glycopyr 9 2 inh inhalation BID breathing 04/10/25 Unknown Rx mcg-formot 4.8 mcg/actuation HFA #10.7 grams inhaler ([employer]) OXYGEN - Supplemental ([facility] 5 l intranasal CONT Pulmonary 07/04/25 Unknown History INFORMATIONAL USE ONLY) Information albuterol sulfate 2.5 mg/3 mL 2.5 mg (3 mL) continuous 07/11/25 Unknown Rx (0.083 %) solution for nebulization nebulization PRN COPD #180 mL azithromycin 250 mg tablet 250 mg PO QMWF #12 tabs 07/25/25 Unknown Rx melatonin 1 mg tablet 1 mg PO QHS 07/25/25 Unknown History nicotine 21 mg/24 hr daily 1 patch topical QDAY 07/25/25 Unknown History transdermal patch prednisone 10 mg tablet 10 mg PO QDAY #90 tabs 07/25/25 Unknown Rx amlodipine 10 mg tablet 10 mg PO DAILY 08/08/25 Unknown History ipratropium 0.5 mg-albuterol 3 mg 3 ml inhalation Q4H PRN shortness 08/08/25 Unknown History (2.5 mg base)/3 mL nebulization of breath or wheezing soln Allergy/AdvReac Type Severity Reaction Status Date / Time clindamycin Allergy Intermediate Hives Verified 08/09/25 11:19 Penicillins Allergy Hives Verified 08/09/25 11:19 sulfamethoxazole (From Allergy Other Verified 08/09/25 11:19 Bactrim) trimethoprim (From Bactrim) Allergy Other Verified 08/09/25 11:19 hydrocodone (From [place]) AdvReac Itching Verified 08/09/25 11:19 Family History Mother Diabetes Hypertension Heart disease High cholesterol Arthritis Thyroid disorder Brother Hypertension Sister Cancer cervical Thyroid disorder Father Kidney disease Daughter Thyroid disorder Surgical History History of tubal ligation History of colonoscopy History of appendectomy Social History household members: family Smoking Status: Former smoker quit date: 03/25/25 Tobacco: How many years used: 30 second hand exposure: Yes alcohol intake: former details: Sober since 2020. substance use type: does not use caffeine: Yes ROS Constitutional Constitutional: Denies fatigue, fever(s), poor appetite, weight gain or weight loss Gastrointestinal Gastrointestinal: Denies belching, bloating, change in bowel habits, change in stool character, chewing difficulty, coffee ground emesis, constipation, cramping, diarrhea, dyspepsia, dysphagia, early satiety, excessive flatus, fecal incontinence, heartburn, hematemesis, hematochezia, hemorrhoids, loose stools, melena, nausea, odynophagia, rectal bleeding, tenesmus, vomiting or weight changes Vital Signs Vital Signs Vital Signs: 08/09/25 11:22 08/09/25 11:22 08/09/25 11:52 Temperature 98.4 F 98.4 F Temperature Source Temporal Pulse Rate 98 98 Respiratory Rate 18 18 Respiratory Pattern Normal Blood Pressure 125/93 H 125/93 H Blood Pressure Mean 103 Blood Pressure Source Monitor Blood Pressure Position Semi-Fowlers Blood Pressure Location Left Arm Pulse Ox 100 100 Oxygen Delivery Method Nasal Cannula Nasal Cannula Oxygen Flow Rate (L/min) 5 5 08/09/25 12:10 Temperature Temperature Source Pulse Rate Respiratory Rate Respiratory Pattern Normal Blood Pressure Blood Pressure Mean Blood Pressure Source Blood Pressure Position Blood Pressure Location Pulse Ox Oxygen Delivery Method Oxygen Flow Rate (L/min) Weight Weight: 116 lb 13.52 oz Body Mass Index (BMI) 20.7 Physical Exam Const alert, oriented x3, no apparent distress and healthy appearing General Appearance: cooperative GI normal to inspection, nondistended, normoactive bowel sounds, soft to palpation, non-tender and non-distended Percussion: normal to percussion Rectal Exam: deferred Assessment & Plan Assessment/Plan (1) Biliary stricture: PLAN: Assessment and Plan Assessment and Plan (1) Chronic pancreatitis: Status: Chronic Qualifiers: Pancreatitis type: alcohol induced Qualified Code(s): K86.0 - Alcohol-induced chronic pancreatitis Plan: Gracie is a 60-year-old female patient with past medical history of chronic pancreatitis, tobacco use, alcohol abuse, nicotine dependence, COPD and hypertension here today for follow-up after ERCP. ERCP demonstrated a biliary cyst stricture, main bile duct dilated, choledocholithiasis pancreatic stones and pancreatic duct and placed CBD stent. Pathology biliary stricture brushings with atypical cells present and pancreatic stent nondiagnostic due to insufficient cellular material. Per Dr. Segura's recommendation, she should undergo repeat ERCP with spyglass for directed biopsies and CBD stent removal. I reviewed these results with patient and her family. She was made aware that this could be related to the stent or malignancy. I have also started patient on Zenpep for enzyme supplementation 3 pills with meals and 2 pills with snacks. Samples were provided to her today. If medication is too expensive she may contact office and we will enroll her in the patient assistance plan. Recommended she follow-up with pain management. Patient and family were agreeable to plan. - Repeat ERCP with spyglass and CBD stent removal - Start Zenpep - Follow-up with pain management - Follow-up after procedure Note: [employer] speech recognition lead programmer analyst software was used to create portions of this document. Sound-alike and misspelled words, as well as other lead programmer analyst errors may be contained in the documentation. Medications: New [id number] 60,000-189,600- 252,600 unit (Zenpep) administer with meals and/or snacks 1 cap PO TID 180 caps 3RF ] D/C Safety Score for UGIB Assessment [place] Bleeding Score (GBS): Stratifies upper GI bleeding patients who are "low-risk" and candidates for outpatient management. Hemoglobin, BUN, Recent Vital Signs: Pulse Rate 98 Blood Pressure 125/93 Total Risk Score: 1 Score Interpretation: Score of 0: A GBS of 0 is a “Low Risk” GI bleed, and is highly sensitive (99.6% in a 2006 retrospective study) for predicting which patients did not require any “medical intervention”: blood transfusion, endoscopy, or surgery. This was confirmed in a 2009 [facility] study where patients with a score of 0 were actually discharged and had no GI bleeding mortality at 6 month followup Score above 0: A GBS greater than zero suggests a “High Risk” GI bleed that is likely to require “medical intervention”: transfusion, endoscopy, or surgery. A higher GBS also correlated with a higher likelihood of needing intervention Scores >/= 6 are associated with >50% risk of needing intervention D/C Safety Score for LGIB Assessment Assessment Tool: Readmission and adverse event risk in patients with acute lower GI bleeding. Age, in years: 40-69 Hemoglobin and Recent Vital Signs: Pulse Rate 98 08/09/25 11:52 Blood Pressure 125/93 08/09/25 11:52 Probability of safe discharge: 99% Total Risk Score: 1 Score Interpretation: Probability Percentage of safe discharge (absence of rebleeding, blood transfusion, therapeutic intervention, 28 day readmission, or ) Score of 8 or below: Consider discharge, with appropriate precautions. Score of 9 or above: Discharge NOT recommended. Consider admission with further workup and resuscitation as necessary.
--- NOTE | 2025-08-09 13:45 | RAD_ITS ---
PROCEDURE: ERCP BILIARY/PANCREAS 08/09/2025 REASON FOR EXAM: ERCP, SPYGLASS TECHNIQUE: Procedure Code: RADERCP Modality: DX Procedure: ERCP BILIARY/PANCREAS. 24.5 seconds of fluoroscopy. Radiation dose: 4.56 mGy. COMPARISON: None FINDINGS: An ERCP was performed by the air twist operator. Contrast was injected. A biliary stent was placed. Pancreatic calcifications. RAD/ERCP Biliary/Pancreas IMPRESSION: Biliary stent placement. Reading Location: [place] [id number]
--- NOTE | 2025-08-09 14:28 | OP.PROVAT_ITS ---
08/09/2025 Annmarie Hay [address] [place] [address] Re : ERCP procedure for Gracie Banuelos Dear Dr. Hay This procedure was performed on Saturday, August 09, 2025. My impressions and recommendations are as follows: Impressions : - The upper third of the main bile duct was dilated, acquired. - One stent was removed from the biliary tree. - Biopsy was performed in the lower third of the main duct. Recommendations : My findings are described in the full procedure note, which is enclosed. If I can be of further assistance, please feel free to contact me at . Sincerely, Marshal Segura, 08/09/2025 2:27:55 PM This report has been signed electronically.
--- NOTE | 2025-08-09 14:28 | OP.ERCP_ITS ---
Patient Name: Gracie Banuelos Procedure Date: 08/09/2025 1:27 PM Date of : 1965 Age: 60 Procedure: ERCP Indications: Biliary stent removal Providers: Marshal Segura DO Referring MD: Marshal Segura DO Medicines: Monitored Anesthesia Care Patient Profile: This is a 60 year old female. Refer to note in patient chart for documentation of history and physical. Patient has symptoms of acute right upper quadrant abdominal pain. Her most recent ERCP for biliary evaluation and ERCP for stent was within the past three months. She is status post laparoscopic cholecystectomy. Complications: No immediate complications. Procedure: Pre-Anesthesia Assessment: - Prior to the procedure, a History and Physical was performed, and patient medications and allergies were reviewed. The patient is competent. The risks and benefits of the procedure and the sedation options and risks were discussed with the patient. All questions were answered and informed consent was obtained. Patient identification and proposed procedure were verified by the nurse in the pre-procedure area. Mental Status Examination: alert and oriented. Airway Examination: normal oropharyngeal airway and neck mobility. Respiratory Examination: clear to auscultation. CV Examination: normal. ASA Grade Assessment: II - A patient with mild systemic disease. After reviewing the risks and benefits, the patient was deemed in satisfactory condition to undergo the procedure. The anesthesia plan was to use monitored anesthesia care (MAC). Immediately prior to administration of medications, the patient was re-assessed for adequacy to receive sedatives. The heart rate, respiratory rate, oxygen saturations, blood pressure, adequacy of pulmonary ventilation, and response to care were monitored throughout the procedure. The physical status of the patient was re-assessed after the procedure. After obtaining informed consent, the scope was passed under direct vision. Throughout the procedure, the patient's blood pressure, pulse, and oxygen saturations were monitored continuously. The Duodenoscope was introduced through the mouth, and advanced to the duodenum and used for direct visualization of the bile duct. The ERCP was accomplished without difficulty. The patient tolerated the procedure well. Scope In: 1:54:16 PM Scope Out: 2:13:36 PM Total Procedure Duration Time 0 hours 19 minutes 20 seconds Findings: The production solderer film was normal. The esophagus was successfully intubated under direct vision. The scope was advanced to a normal major papilla in the descending duodenum without detailed examination of the pharynx, larynx and associated structures, and upper GI tract. The upper GI tract was grossly normal. The bile duct was explored endoscopically using the SpJammitlass direct visualization system. The SpyScope was advanced to the left intrahepatic duct(s). Visibility with the scope was good. The entire biliary tree except for the gallbladder and upper third of the main bile duct were diffusely dilated, acquired. The largest diameter was 10 mm. One stent was removed from the biliary tree using a snare and sent for cytology. The stent was found to be partially occluded via the water column test. The lower third of the main bile duct was biopsied with a cold forceps for histology. Impression: - The upper third of the main bile duct was dilated, acquired. - One stent was removed from the biliary tree. - Biopsy was performed in the lower third of the main duct. Procedure Code(s): --- Professional --- 48300, Endoscopic retrograde cholangiopancreatography (ERCP); with removal of foreign body(s) or stent(s) from biliary/pancreatic duct(s) 60512, Endoscopic retrograde cholangiopancreatography (ERCP); with biopsy, single or multiple 38838, Endoscopic cannulation of papilla with direct visualization of pancreatic/common bile duct(s) (List separately in addition to code(s) for primary procedure) CPT copyright 2021 [employer]. All rights reserved. The codes documented in this report are preliminary and upon qc scientist review may be revised to meet current compliance requirements. Marshal Segura DO 08/09/2025 2:27:55 PM This report has been signed electronically. Number of Addenda: 0 Note Initiated On: 08/09/2025 1:27 PM
--- NOTE | 2025-08-09 14:40 | PCM.POST.ANE ---
Anesthesia: Postop Eval I Current Vital Signs Temperature: 97 F Pulse Rate: 87 Blood Pressure: 110/54 Respiratory Rate: 14 Pulse Ox: 95 Oxygen Delivery Method: Nasal Cannula Oxygen Flow Rate (L/min): 5 Assessment Airway patent: Yes Spontaneous unlabored respirations: Yes Mental status: Asleep nausea: No Vomiting: No Anesthesia Complication: No Fluid Hydration Crystalloid volume administer (ml): 900 Total IV fluid infused: 900 Progress Note Anesthesia document: Postop Eval 1 completed: Yes
--- NOTE | 2025-08-09 16:29 | PCM.POSTANE2 ---
Anesthesia Postop Eval I Sum Postop Eval Completion status Anesthesia document: Postop Eval 1 completed: Yes Anesthesia Postop Eval I Summary Anesthesia Postop Eval I Summary: Anesthesia Postop Eval I: Assessment Summary Airway patent Yes 08/09/25 14:41 [email or web address] Spontaneous unlabored Yes 08/09/25 14:41 [email or web address] respirations Mental status Asleep 08/09/25 14:41 [email or web address] nausea No 08/09/25 14:41 [email or web address] Vomiting No 08/09/25 14:41 [email or web address] Anesthesia Postop Eval I: Fluid Summary Crystalloid volume administer 900 08/09/25 14:41 [email or web address] (ml) Colloids volume administered ( ml) Blood Product volume administered (ml) Total IV fluid infused 900 08/09/25 14:41 [email or web address] Anesthesia Postop Eval I: Summary Notes Anesthesia Complication No 08/09/25 14:41 [email or web address] Anesthesia Complication Comment: Post-operative progress note Anesthesia: Postop Eval II Evaluation Mental status: Awake Pain Level: 0 nausea: No Vomiting: No Complications Anesthesia Complication: No
== END 2025-08-09 16:25 | disposition home or self-care (01) ==
LOC: EN 10:57 → AC 10:59
PROVIDERS: PCP Internal Medicine; Referring Provider Internal Medicine; Visit Provider Internal Medicine Gastroenterology
DX: Z46.59 Encounter for fitting and adjustment of other gastrointestinal appliance and device (principal); K83.09 Other cholangitis; K86.0 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 chronic pancreatitis; J43.9 Emphysema, unspecified; Z87.891 Personal history of nicotine dependence; I10 Essential (primary) hypertension; Z79.899 Other long term (current) drug therapy; K80.51 Calculus of bile duct without cholangitis or cholecystitis with obstruction; E78.5 Hyperlipidemia, unspecified; K21.9 Gastro-esophageal reflux disease without esophagitis; Z90.49 Acquired absence of other specified parts of digestive tract
CPT/HCPCS: 43275; 43261; 00732; 74330; 76000; 88108; 88304; 88305; 88313; 93005; 94640; C1889; J2405